=== PATIENT | female | born 1960 | race Caucasian/White ===

== ENCOUNTER → 2022-10-06 | Outpatient (CLI) | payer MEDICARE, MEDICAID, SELFPAY ==
[2022-10-06 18:00] LABS: Absolute Lymphocyte Count 2.62 X10^3/uL (0.83-4.51); Absolute Neutrophil Count 7.5 X10^3/uL (2.0-7.7); Basophil% 0.9 % (0-1); Eosinophil# 0.25 X10^3/uL; Eosinophils% 2.2 % (0-5); Hematocrit 38.8 % (37-47); Hemoglobin 11.5 g/dL (12.0-15.0); Lymphocyte # 2.62 X10^3/ul (0.83-4.51); Lymphocyte % 23.2 % (19-41); Mean Corp Hgb Conc 29.6 g/dL (32-36); Mean Corpuscular Hgb 23.7 pg (27.0-32.0); Mean Corpuscular Volume 79.8 fL (81-99); Mean Platelet Vol. 10.6 fl (6.2-12.0); Monocyte# 0.82 X10^3/uL; Monocyte% 7.3 % (0-10); NRBC Flagged by Analyzer 0 % (0-5); Neutrophil # 7.47 X10^3/uL (2.7-7.7); Neutrophil % 66.2 % (47-70); Platelet Count 513 K/mm3 (150-450); RBC Distribution Width CV 16.7 % (11.6-14.6); RBC Distribution Width SD 48.3 fl (35.1-43.9); Red Blood Count 4.86 M/mm3 (4.2-5.4); White Blood Count 11.3 K/mm3 (4.4-11.0)
[2022-10-06 18:40] LABS: Vitamin B12 > 2000 pg/mL (211-911)
[2022-10-06 18:50] LABS: ALB/GLOB Ratio 0.9 RATIO (0.9-2.4); AST(SGOT) 16 U/L (15-37); Alanine Aminotransfer ALT/SGPT 25 U/L (13-56); Albumin, Serum 3.9 g/dL (3.2-5.0); Alkaline Phosphatase 84 U/L (45-117); Anion Gap 9 (5-15); BUN 22 mg/dL (7-18); BUN/Creat Ratio 11.6 RATIO (10-20); Calcium,Total 9.4 mg/dL (8.5-10.1); Chloride 101 mmol/L (98-107); EST Glomerular Filtration Rate 28 mL/min (>60); Est Glom Filt Rate - Afr Amer 34 mL/min (>60); Globulin 4.3 g/dL (2.2-4.2); Glucose 96 mg/dL (74-106); Potassium 5.4 mmol/L (3.5-5.1); Protein, Total 8.2 g/dL (6.4-8.2); Sodium Level 135 mmol/L (136-145); Thyroid Stim Hormone (TSH) 0.42 uIU/mL (0.358-3.74)
[2022-10-12 00:07] LABS: Free Kappa Light Chains 55.8 mg/L (3.3-19.4); Free Lambda Light Chains 41.7 mg/L (5.7-26.3)
[2022-10-12 09:28] LABS: Vitamin B1, Thiamine 146.3 nmol/L (66.5-200.0)
== END | disposition home or self-care (01) ==
PROVIDERS: PCP Nurse Practitioner Family; Referring Provider Psychiatry & Neurology Neurology; Visit Provider Psychiatry & Neurology Neurology
DX: E71.314 Muscle carnitine palmitoyltransferase deficiency (principal); G62.9 Polyneuropathy, unspecified; M79.10 Myalgia, unspecified site
CPT/HCPCS: 36415; 80053; 82607; 82746; 83883; 84425; 84443; 85025

== ENCOUNTER → 2022-12-01 | Outpatient (CLI) | payer MEDICARE, MEDICAID, SELFPAY ==
[2022-12-01 13:39] LABS: Anion Gap 14 (5-15); BUN 33 mg/dL (7-18); BUN/Creat Ratio 13.1 RATIO (10-20); Calcium,Total 8.9 mg/dL (8.5-10.1); Chloride 89 mmol/L (98-107); Creatinine, Serum 2.51 mg/dL (0.55-1.02); EST Glomerular Filtration Rate 21 mL/min (>60); Est Glom Filt Rate - Afr Amer 25 mL/min (>60); Ferritin 70 ng/mL (8-252); Glucose 109 mg/dL (74-106); Iron 19 ug/dL (50-170); Potassium 3.5 mmol/L (3.5-5.1); Sodium Level 125 mmol/L (136-145)
[2022-12-02 15:08] LABS: Albumin 3.5 g/dL (2.9-4.4); Alpha-1-Globulins 0.3 g/dL (0.0-0.4); Alpha-2-Globulins 1.1 g/dL (0.4-1.0); Gamma Globulin 1.2 g/dL (0.4-1.8); Immunoglobulin A 107 mg/dL (87-352); Immunoglobulin G 1343 mg/dL (586-1602); Immunoglobulin M 42 mg/dL (26-217)
[2022-12-02 16:14] LABS: IMMUNOFIXATION RESULT,S Comment: (.)
[2022-12-04 22:28] LABS: Vitamin D 1,25-Dihydroxy 32.2 pg/mL (24.8-81.5)
== END | disposition home or self-care (01) ==
LOC: BIMLAB 09:31
PROVIDERS: PCP Internal Medicine; Referring Provider Psychiatry & Neurology Neurology; Visit Provider Psychiatry & Neurology Neurology
DX: G62.9 Polyneuropathy, unspecified (principal); Z86.2 Personal history of diseases of the blood and blood-forming organs and certain disorders involving the immune mechanism; Z86.39 Personal history of other endocrine, nutritional and metabolic disease
CPT/HCPCS: 36415; 80048; 82652; 82728; 82784; 83540; 84165; 86334

== ENCOUNTER → 2022-12-07 | Outpatient (CLI) | payer MEDICARE, MEDICAID, SELFPAY ==
[2022-12-07 12:18] LABS: Color, Urine Yellow (Yellow); Glucose, Dipstick Normal (Normal); Ketone-Dipstick Negative (Negative); Leukocyte Esterase-Dipstick Negative /ul (Negative); Nitrite-Dipstick Negative (Negative); Occult Blood-Urine Negative /ul (Negative); Protein-Dipstick 15 mg/dl (Negative); Urine Bilirubin Dipstick Negative (Negative); Urine Clarity Clear (Clear); Urine Urobilinogen Normal (Normal)
[2022-12-07 12:28] LABS: Albumin, Serum 3.3 g/dL (3.2-5.0); BUN 18 mg/dL (7-18); BUN/Creat Ratio 12.2 RATIO (10-20); Calcium,Total 9.4 mg/dL (8.5-10.1); Chloride 97 mmol/L (98-107); Creatinine, Serum 1.48 mg/dL (0.55-1.02); EST Glomerular Filtration Rate 38 mL/min (>60); Est Glom Filt Rate - Afr Amer 46 mL/min (>60); Glucose 120 mg/dL (74-106); Phosphorus 3.6 mg/dL (2.5-4.9); Potassium 4.6 mmol/L (3.5-5.1); Sodium Level 134 mmol/L (136-145)
[2022-12-07 12:30] LABS: Protein, Urine (Random) 13.8 mg/dL (<11.9); Protein:Creat Ratio 320 mg/g CRE (0-200)
[2022-12-09 18:53] LABS: Immunofixation Urine Comment: (.)
== END | disposition home or self-care (01) ==
LOC: BIMLAB 10:26
PROVIDERS: Psychiatry & Neurology Neurology; PCP Internal Medicine
DX: I12.9 Hypertensive chronic kidney disease with stage 1 through stage 4 chronic kidney disease, or unspecified chronic kidney disease (principal); G62.9 Polyneuropathy, unspecified
CPT/HCPCS: 36415; 80069; 81002; 82570; 84156; 86335

== ENCOUNTER → 2022-12-28 | Outpatient (CLI) | payer MEDICARE, MEDICAID, SELFPAY ==
--- NOTE | 2022-12-28 12:37 | MRI_ITS ---
INDICATION: Worsening neck pain; right upper extremity radiculopathy EXAMINATION: MRI - MR Spine Cervical W/O Contrast TECHNIQUE: Multiplanar and multisequence MR images of the cervical spine were performed. IV Contrast Dosage and Agent: None. COMPARISON: None. FINDINGS: VERTEBRAE: No acute fracture or pathologic marrow replacement. VERTEBRAL ALIGNMENT: Normal, including the craniocervical junction and cervicothoracic junction. No spondylolisthesis. There is preservation of the normal cervical lordosis. CERVICAL SPINAL CORD: Unremarkable in signal and morphology. C2/C3: Normal disc height and morphology. Normal spinal canal and neuroforamina. C3/C4: Normal disc height and morphology. Bilateral facet joint hypertrophy and spondylitic changes produce mild bilateral foraminal stenosis. C4/C5: Loss of normal disc space height. Broad-based spondylitic bar formation produces moderately severe right foraminal narrowing and moderate left foraminal narrowing. No significant central stenosis. C5/C6: Loss of normal disc space height. Disc-osteophyte formation produces mild central and moderate bilateral foraminal stenosis. C6/C7: Mild loss of normal disc space height. Disc-osteophyte formation present. Mild central and moderate left foraminal stenosis. C7/T1: Normal disc height and morphology. Normal spinal canal and neuroforamina. NECK SOFT TISSUES: No prevertebral soft tissue swelling. There is no cervical adenopathy. MRI/Spine Cervical (Routine) IMPRESSION: Degenerative disc disease and cervical spondylosis with multilevel central and foraminal stenoses as above. Findings most severe at the C5-6 level. Electronically Signed: Rolando Ross MD at 21:57 EST ,
--- NOTE | 2022-12-28 13:37 | ART_ITS ---
Reason For Study: Absent left foot pulses Procedure A bilateral lower extremity continuous wave Doppler with analog waveform analysis and ankle brachial indexes. Left Segmental Pressures Left brachial= 150mmHg. Left posterior tibial artery = 153mmHg. Left dorsalis pedis artery = 145mmHg. Left digit = 91 mmHg. The left dorsalis pedis waveforms are triphasic. The left posterior tibial artery waveforms are triphasic. Right Segmental Pressures Right brachial= 155mmHg. Right posterior tibial artery = 168mmHg. Right dorsalis pedis artery = 143mmHg. Right digit = 101 mmHg. The right dorsalis pedis waveforms are triphasic. The right posterior tibial artery waveforms are triphasic. Indices The right ankle brachial index by the dorsalis pedis is 0.92. The right ankle brachial index by the posterior tibial artery is 1.08. The right digital-brachial index is 0.65. The left ankle brachial index by the dorsalis pedis is 0.94. The left ankle brachial index by the posterior tibial artery is 0.99. The left digital-brachial index is 0.59. VL/Ankle Brachial Index Interpretation Summary The right ankle-brachial indices are essentially normal with the dorsalis pedis index of 0.92 and a posterior tibialis index of 1.08 with triphasic Doppler waveforms at each site The right digital brachial index is abnormal at 0.65 possibly suggesting small vessel disease The left lower extremity dorsalis pedis and ankle-brachial indices are borderli ne abnormal at 0.94 and 0.99 respectively with triphasic Doppler waveforms at each site consistent with mild disease. The left digital brachial index is abnormal at 0.59. Ordering Physician: Rusty Dozier Referring Physician: Jennifer Gordon Performed By: Tali Oakes RVT
== END | disposition home or self-care (01) ==
LOC: MRI 12:37
PROVIDERS: PCP Internal Medicine; Referring Provider Psychiatry & Neurology Neurology; Visit Provider Psychiatry & Neurology Neurology
DX: I73.9 Peripheral vascular disease, unspecified (principal); M54.12 Radiculopathy, cervical region
CPT/HCPCS: 72141; 93922

== ENCOUNTER → 2023-02-07 | Outpatient (CLI) | payer MEDICARE, MEDICAID, SELFPAY ==
[2023-02-07 18:36] LABS: Anion Gap 5 (5-15); BUN 25 mg/dL (7-18); Calcium,Total 9.5 mg/dL (8.5-10.1); Chloride 103 mmol/L (98-107); Creatinine, Serum 1.78 mg/dL (0.55-1.02); EST Glomerular Filtration Rate 30 mL/min (>60); Est Glom Filt Rate - Afr Amer 37 mL/min (>60); Glucose 107 mg/dL (74-106); Potassium 5.1 mmol/L (3.5-5.1); Sodium Level 134 mmol/L (136-145)
[2023-02-10 14:09] LABS: Albumin 3.7 g/dL (2.9-4.4); Alpha-1-Globulins 0.3 g/dL (0.0-0.4); Alpha-2-Globulins 1.1 g/dL (0.4-1.0); Free Kappa Light Chains 62.9 mg/L (3.3-19.4); Free Lambda Light Chains 46.9 mg/L (5.7-26.3); Gamma Globulin 1.6 g/dL (0.4-1.8); Immunoglobulin A 119 mg/dL (87-352); Immunoglobulin G 1604 mg/dL (586-1602); Immunoglobulin M 58 mg/dL (26-217); PROEL- TOTAL PROTEIN 7.9 g/dL (6.0-8.5)
[2023-02-12 11:08] LABS: Vitamin D 1,25-Dihydroxy 17.1 pg/mL (24.8-81.5)
== END | disposition home or self-care (01) ==
LOC: MTLAB 15:44
PROVIDERS: PCP Internal Medicine; Referring Provider Psychiatry & Neurology Neurology; Visit Provider Psychiatry & Neurology Neurology
DX: G62.9 Polyneuropathy, unspecified (principal); Z86.39 Personal history of other endocrine, nutritional and metabolic disease
CPT/HCPCS: 36415; 80048; 82652; 82784; 83883; 84165; 86334; 86335

== ENCOUNTER → 2023-05-01 | Outpatient (CLI) | payer MEDICARE, MEDICAID, SELFPAY ==
--- NOTE | 2023-05-01 14:41 | ECHOD_ITS ---
Reason For Study: CHEST PAIN Procedure This was a 2D Doppler, Color Flow transthoracic echocardiogram. Exam performed in department. Left Ventricle Normal size and thickness. The left ventricular ejection fraction is 65 %. Normal diastology for age. Right Ventricle Normal right ventricle. Atria The left atrium is mildly enlarged. Normal right atrium. Mitral Valve Trivial mitral valve insufficiency. Tricuspid Valve Trivial tricuspid valve insufficiency. Unable to estimate RV systolic pressure due to insufficient tricuspid regurgitant envelope. Aortic Valve Normal aortic valve. Pulmonic Valve The pulmonic valve is not well visualized. Great Vessels Normal sized aortic root. Pericardium/Pleural No pericardial effusion. Epicardial fat. MMode/2D Measurements & Calculations LVIDd: 5.5 cm IVSd: 1.1 cm LAV(MOD-bp): 49.7 ml LVIDs: 3.8 cm LVPWd: 1.1 cm LAV(MOD-bp) Indexed: 24.4 ml/m2 FS: 31.6 % LAV(MOD-sp2): 64.2 ml LAV(MOD-sp4): 34.1 ml SV(MOD-sp4): 53.8 ml SV(sp4-el): 59.4 ml LVAd ap4: 31.6 cm2 LVLd ap4: 8.1 cm EDV(MOD-sp4): 100.8 ml EDV(sp4-el): 105.0 ml LVAs ap4: 19.1 cm2 LVLs ap4: 6.8 cm ESV(MOD-sp4): 47.1 ml ESV(sp4-el): 45.5 ml EF(MOD-sp4): 53.3 % EF(sp4-el): 56.6 % LA A4 area: 15.5 cm2 LA dimension(2D): 4.2 cm RA A4 area: 16.6 cm2 TAPSE: 2.1 cm Time Measurements MV dec time: 0.22 sec Doppler Measurements & Calculations MV E max dread: 79.7 cm/sec Lat Peak E' Dread: 10.1 cm/sec Med Peak E' Dread: 8.9 cm/sec MV A max dread: 73.5 cm/sec E/E' lat: 7.9 E/E' med: 8.9 MV E/A: 1.1 MV V2 max: 92.0 cm/sec Ao V2 max: 123.3 cm/sec MV max P.4 mmHg MV dec slope: 379.3 cm/sec2 Ao max P.1 mmHg MV V2 mean: 61.7 cm/sec Ao V2 mean: 88.3 cm/sec MV mean P.7 mmHg Ao mean P.5 mmHg MV V2 VTI: 27.9 cm Ao V2 VTI: 29.0 cm AV (velocity ratio): 0.81 LV V1 max: 106.9 cm/sec PA V2 max: 79.3 cm/sec LV V1 max P.6 mmHg PA V2 mean: 56.4 cm/sec LV V1 mean P.5 mmHg LV V1 mean: 73.9 cm/sec LV V1 VTI: 23.4 cm ECHO/Echo Complete Interpretation Summary The left ventricular ejection fraction is 65 %. The left atrium is mildly enlarged. Ordering Physician: Flavia Shine Referring Physician: Flavia Shine Performed By: Shereen Messer RCS
== END | disposition home or self-care (01) ==
LOC: CVS 14:40
PROVIDERS: PCP Internal Medicine; Referring Provider Internal Medicine Cardiovascular Disease; Visit Provider Internal Medicine Cardiovascular Disease
DX: R07.9 Chest pain, unspecified (principal)
CPT/HCPCS: 93306

== ENCOUNTER → 2023-06-01 | Outpatient (CLI) | payer MEDICARE, MEDICAID, SELFPAY ==
--- NOTE | 2023-06-05 16:09 | STRESSREP ---
Stress Test Report Pharmacologic myocardial perfusion stress test. 63-year-old lady with a history of nonsustained ventricular tachycardia Resting EKG demonstrates sinus rhythm with a rate of 65 bpm. Resting blood pressure is 118/78 mmHg. 0.4 mg of regadenoson was infused per usual protocol followed by rapid intravenous saline flush injection. Continuous EKG monitoring was performed. The maximum heart rate was 76 bpm which was 49% of max impacted heart rate the maximum workload was 1 metabolic equivalent. At rest there were no ST or T wave changes noted to suggest ischemia and at peak infusion nonspecific ST changes were noted which did not meet the criteria for ischemia. No clinical angina is noted. The final blood pressure was 118/74 mmHg. Myocardial perfusion protocol. 14.4 mCi of technetium 99m sestamibi was injected at rest. 0.4 mg of regadenoson was infused per usual protocol. At peak infusion 44.1 mCi of technetium 99m sestamibi was injected stress images were obtained stress and rest images were reconstructed and compared in the short axis vertical long and horizontal long axis. Gated images were also obtained. Perfusion SPECT analysis: Review of the stress images demonstrate normal uptake of tracer noted in all areas of the myocardium. The resting images similar demonstrated normal uptake of tracer noted in all areas of the myocardium. No areas of reversibility are noted to suggest ischemia and no previous infarct is noted. Gated SPECT analysis: The gated ejection fraction is 64%. Conclusion: Normal pharmacologic myocardial perfusion stress test. [Preserved] ejection fraction.
== END | disposition home or self-care (01) ==
LOC: CVS 06:46
PROVIDERS: PCP Internal Medicine; Referring Provider Physician Assistant Medical; Visit Provider Physician Assistant Medical
DX: I25.10 Atherosclerotic heart disease of native coronary artery without angina pectoris (principal)
CPT/HCPCS: 78452; 93017; A9500; A4216; J2785

== ENCOUNTER → 2023-06-05 | Outpatient (CLI) | payer MEDICARE, MEDICAID, SELFPAY ==
[2023-06-05 12:29] LABS: Absolute Lymphocyte Count 2.66 X10^3/uL (0.83-4.51); Absolute Neutrophil Count 6.1 X10^3/uL (2.0-7.7); Basophil# 0.08 X10^3/uL; Basophil% 0.8 % (0-1); Eosinophil# 0.34 X10^3/uL; Eosinophils% 3.4 % (0-5); Hematocrit 39.7 % (37-47); Hemoglobin 11.5 g/dL (12.0-15.0); Lymphocyte # 2.66 X10^3/ul (0.83-4.51); Lymphocyte % 26.7 % (19-41); Mean Corpuscular Hgb 24.3 pg (27.0-32.0); Mean Corpuscular Volume 83.8 fL (81-99); Mean Platelet Vol. 10.5 fl (6.2-12.0); Monocyte# 0.79 X10^3/uL; Monocyte% 7.9 % (0-10); NRBC Flagged by Analyzer 0 % (0-5); Neutrophil # 6.05 X10^3/uL (2.7-7.7); Neutrophil % 60.7 % (47-70); Platelet Count 370 K/mm3 (150-450); RBC Distribution Width CV 16.6 % (11.6-14.6); RBC Distribution Width SD 50.5 fl (35.1-43.9); Red Blood Count 4.74 M/mm3 (4.2-5.4)
[2023-06-05 13:45] LABS: ALB/GLOB Ratio 0.8 RATIO (0.9-2.4); AST(SGOT) 17 U/L (15-37); Alanine Aminotransfer ALT/SGPT 18 U/L (13-56); Albumin, Serum 3.5 g/dL (3.2-5.0); Alkaline Phosphatase 105 U/L (45-117); Anion Gap 6 (5-15); BUN 22 mg/dL (7-18); BUN/Creat Ratio 12.2 RATIO (10-20); Calcium,Total 9.1 mg/dL (8.5-10.1); Chloride 104 mmol/L (98-107); Cholesterol 220 mg/dL (200); EST Glomerular Filtration Rate 30 mL/min (>60); Est Glom Filt Rate - Afr Amer 36 mL/min (>60); Globulin 4.6 g/dL (2.2-4.2); Glucose 107 mg/dL (74-106); High Density Lipoprotein 40 mg/dL; Lipase 69 U/L (13-75); Potassium 5.4 mmol/L (3.5-5.1); Protein, Total 8.1 g/dL (6.4-8.2); Sodium Level 136 mmol/L (136-145); Thyroid Stim Hormone (TSH) 0.12 uIU/mL (0.358-3.74); Triglycerides 240 mg/dL; Very Low Density Lipoprotein 48 mg/dL (5-40)
[2023-06-06 15:08] LABS: Endomysial Antibody IgA Negative (Negative); Immunoglobulin A 135 mg/dL (87-352); t-Transglutaminase IgA <2 U/mL (0-3)
== END | disposition home or self-care (01) ==
LOC: BIMLAB 11:06
PROVIDERS: PCP Internal Medicine; Referring Provider Internal Medicine; Visit Provider Internal Medicine
DX: I12.9 Hypertensive chronic kidney disease with stage 1 through stage 4 chronic kidney disease, or unspecified chronic kidney disease (principal); N18.4 Chronic kidney disease, stage 4 (severe); R10.9 Unspecified abdominal pain; G89.29 Other chronic pain; E03.9 Hypothyroidism, unspecified
CPT/HCPCS: 36415; 80053; 80061; 82306; 82784; 83516; 83690; 84443; 85025; 86255

== ENCOUNTER → 2023-07-03 | Outpatient (CLI) | payer MEDICARE, MEDICAID, SELFPAY ==
--- NOTE | 2023-07-03 12:55 | CT_ITS ---
EXAM: CT CHEST, LUNG CANCER SCREENING WITHOUT INTRAVENOUS CONTRAST CLINICAL INDICATION: smoking TECHNIQUE: Helically acquired images were obtained of the chest without intravenous contrast using low dose (LDCT) lung cancer screening protocol. This CT exam was performed using one or more of the following dose reduction techniques: automated exposure control, adjustment of the mA and/or kV according to patient size, and/or use of iterative reconstruction technique. COMPARISON: No relevant prior studies available. FINDINGS: LUNGS AND PLEURAL SPACES: There are multiple small subcentimeter calcified nodules in the right upper lobe. There is scarring or atelectasis in the lingula. No pleural effusion or thickening. No pneumothorax. HEART: Unremarkable. Heart size is normal. No pericardial effusion. No significant coronary artery calcifications. MEDIASTINUM: Unremarkable. No mediastinal or hilar adenopathy. Esophagus is unremarkable. No hiatal hernia. THYROID: Unremarkable. No thyroid lesions. BONES/JOINTS: Unremarkable. No suspicious lytic or blastic abnormality. VASCULATURE: Unremarkable. Thoracic aorta is non-dilated. LYMPH NODES: Unremarkable. No enlarged lymph nodes. CT/Low Dose CT Lung Screening IMPRESSION: Minimal scar or atelectasis in the lingula. No other acute pulmonary abnormalities are identified. There are multiple calcified nodules in the right upper lobe. Lung-RADS score: 1 - Recommend continued annual screening with a low-dose CT (LDCT) in 12 months. Electronically Signed: Travis Carnes MD at 22:00 EDT ,
--- NOTE | 2023-07-03 13:13 | BI_ITS ---
MAMMOGRAPHY - BILATERAL SCREENING REASON FOR EXAM: Female, 63 years old. Routine annual screening examination. PERTINENT HISTORY: Non-contributory. TECHNIQUE: Digital bilateral breast wendy (3D mammographic acquisition) in the CC and MLO projections. 2-D mediolateral oblique (MLO) and craniocaudad (CC) views of both breasts were obtained. CAD: Full Field Digital Mammography with Computer Added Detection was performed. COMPARISON: Comparison is made with prior outside examination of August 16, 2021. FINDINGS: Breast Composition: The breasts are heterogeneously dense, which may obscure small masses. There are no dominant masses or suspicious calcifications. Stable asymmetric breast tissue with more breast tissue is seen in the upper outer quadrant of the right breast, is compared to the left side. No other significant abnormalities are identified. There has been no significant change since the prior study. BI/SCRN MAMM (CAD)W/WENDY BILAT IMPRESSION: Stable bilateral screening mammogram. Yearly follow-up mammogram recommended. (A) ASSESSMENT CATEGORY: BIRADS Category 2: Benign. A letter regarding these results will be sent to the patient by the facility within 30 days. Approximately 10% of breast cancers are not detected by mammography. A normal mammogram should not delay biopsy of a clinically suspicious abnormality. [id number] Electronically Signed: Clarence Tamez MD at 15:36 EDT ,
[2023-07-07 20:07] LABS: Pancreatic Elastase, Fecal 409 (>200)
== END | disposition home or self-care (01) ==
LOC: CT 12:48
PROVIDERS: PCP Internal Medicine; Referring Provider Nurse Practitioner Acute Care; Visit Provider Nurse Practitioner Acute Care
DX: Z12.31 Encounter for screening mammogram for malignant neoplasm of breast (principal); F17.210 Nicotine dependence, cigarettes, uncomplicated
CPT/HCPCS: 71271; 77063; 77067; 82653

== ENCOUNTER → 2023-11-28 | Outpatient (CLI) | payer MEDICARE, MEDICAID, SELFPAY ==
[2023-12-01 14:10] LABS: Albumin 3.8 g/dL (2.9-4.4); Alpha-1-Globulins 0.2 g/dL (0.0-0.4); Free Kappa Light Chains 52.2 mg/L (3.3-19.4); Free Lambda Light Chains 41.5 mg/L (5.7-26.3); Gamma Globulin 1.3 g/dL (0.4-1.8); Immunoglobulin A 147 mg/dL (87-352); Immunoglobulin G 1444 mg/dL (586-1602); Immunoglobulin M 58 mg/dL (26-217); PROEL- TOTAL PROTEIN 7.4 g/dL (6.0-8.5)
== END | disposition home or self-care (01) ==
LOC: MTLAB 15:48
PROVIDERS: PCP Internal Medicine; Referring Provider Psychiatry & Neurology Neurology; Visit Provider Psychiatry & Neurology Neurology
DX: G62.9 Polyneuropathy, unspecified (principal)
CPT/HCPCS: 36415; 82784; 83883; 84165; 86334; 86335

== ENCOUNTER → 2023-12-29 | Outpatient (CLI) | payer MEDICARE, MEDICAID, SELFPAY ==
[2023-12-29 15:31] LABS: Absolute Neutrophil Count 7.7 X10^3/uL (2.0-7.7); Basophil# 0.09 X10^3/uL; Basophil% 0.8 % (0-1); Eosinophil# 0.23 X10^3/uL; Eosinophils% 2.2 % (0-5); Hematocrit 39.3 % (37-47); Hemoglobin 11.7 g/dL (12.0-15.0); Lymphocyte % 17.8 % (19-41); Mean Corp Hgb Conc 29.8 g/dL (32-36); Mean Corpuscular Hgb 25.5 pg (27.0-32.0); Mean Corpuscular Volume 85.8 fL (81-99); Mean Platelet Vol. 10.2 fl (6.2-12.0); Monocyte# 0.74 X10^3/uL; Monocyte% 6.9 % (0-10); NRBC Flagged by Analyzer 0 % (0-5); Neutrophil # 7.68 X10^3/uL (2.7-7.7); Neutrophil % 71.8 % (47-70); Platelet Count 350 K/mm3 (150-450); RBC Distribution Width CV 15.9 % (11.6-14.6); RBC Distribution Width SD 50.2 fl (35.1-43.9); Red Blood Count 4.58 M/mm3 (4.2-5.4); White Blood Count 10.7 K/mm3 (4.4-11.0)
[2023-12-29 15:41] LABS: Color, Urine Yellow (Yellow); Glucose, Dipstick Normal (Normal); Ketone-Dipstick Negative (Negative); Leukocyte Esterase-Dipstick 100 /ul (Negative); Nitrite-Dipstick Negative (Negative); Occult Blood-Urine Negative /ul (Negative); Protein-Dipstick 100 mg/dl (Negative); Specific Gravity, Urine 1.015 (1.002-1.030); Urine Bilirubin Dipstick Negative (Negative); Urine Clarity Clear (Clear); Urine Urobilinogen Normal (Normal)
[2023-12-29 16:05] LABS: PTHIN 96.2 pg/mL (18.4-80.1)
[2023-12-29 16:06] LABS: Protein:Creat Ratio 629 mg/g CRE (0-200)
[2023-12-29 16:19] LABS: T3 Total - Triiodothyronine 1.06 ng/mL (0.6-1.81)
[2023-12-29 17:08] LABS: ALB/GLOB Ratio 0.8 RATIO (0.9-2.4); AST(SGOT) 20 U/L (15-37); Alanine Aminotransfer ALT/SGPT 21 U/L (13-56); Albumin, Serum 3.4 g/dL (3.2-5.0); Alkaline Phosphatase 89 U/L (45-117); Anion Gap 5 (5-15); BUN 26 mg/dL (7-18); BUN/Creat Ratio 13.5 RATIO (10-20); Calcium,Total 8.9 mg/dL (8.5-10.1); Chloride 106 mmol/L (98-107); Cholesterol 210 mg/dL (200); Creatinine, Serum 1.93 mg/dL (0.55-1.02); EST Glomerular Filtration Rate 28 mL/min (>60); Est Glom Filt Rate - Afr Amer 33 mL/min (>60); Globulin 4.3 g/dL (2.2-4.2); Glucose 141 mg/dL (74-106); High Density Lipoprotein 36 mg/dL; Magnesium 2.3 mg/dL (1.6-2.6); Potassium 4.6 mmol/L (3.5-5.1); Protein, Total 7.7 g/dL (6.4-8.2); Sodium Level 137 mmol/L (136-145); Triglycerides 265 mg/dL; Very Low Density Lipoprotein 53 mg/dL (5-40)
[2023-12-29 17:18] LABS: Vitamin D,25 Hydroxy 65.9 ng/mL
== END | disposition home or self-care (01) ==
PROVIDERS: PCP Internal Medicine; Referring Provider Internal Medicine Nephrology; Visit Provider Internal Medicine Nephrology
DX: I12.9 Hypertensive chronic kidney disease with stage 1 through stage 4 chronic kidney disease, or unspecified chronic kidney disease (principal); F32.1 Major depressive disorder, single episode, moderate; N18.4 Chronic kidney disease, stage 4 (severe); I47.29 Other ventricular tachycardia; E89.0 Postprocedural hypothyroidism; R10.9 Unspecified abdominal pain; G89.29 Other chronic pain; I25.10 Atherosclerotic heart disease of native coronary artery without angina pectoris; R00.2 Palpitations; E78.2 Mixed hyperlipidemia
CPT/HCPCS: 36415; 80048; 80053; 80061; 80069; 81002; 82306; 82570; 83735; 83970; 84156; 84439; 84443; 84480; 85025

== ENCOUNTER → 2024-01-03 | Outpatient (CLI) | payer MEDICARE, MEDICAID, SELFPAY ==
--- NOTE | 2024-01-03 15:48 | CT_ITS ---
EXAM: CT ABDOMEN AND PELVIS WITHOUT INTRAVENOUS CONTRAST CLINICAL INDICATION: HYDRONEPHROSIS TECHNIQUE: Helically acquired images were obtained of the abdomen and pelvis without intravenous contrast. This CT exam was performed using one or more of the following dose reduction techniques: automated exposure control, adjustment of the mA and/or kV according to patient size, and/or use of iterative reconstruction technique. COMPARISON: No relevant prior studies available. FINDINGS: LOWER THORAX: Unremarkable. Lung bases are clear. No cardiomegaly. No significant pericardial effusion. ABDOMEN: LIVER: Unremarkable. Homogeneous. GALLBLADDER AND BILE DUCTS: There are surgical clips from a cholecystectomy. No intra- or extrahepatic biliary ductal dilation. PANCREAS: Unremarkable. No focal cystic mass. SPLEEN: Unremarkable. Normal size without focal cystic or solid mass. ADRENALS: Unremarkable. No nodules. KIDNEYS AND URETERS: Unremarkable. Normal renal size and position. No hydronephrosis. STOMACH AND BOWEL: Unremarkable. No stomach or bowel distention. No focal inflammatory change. PELVIS: APPENDIX: No evidence of acute appendicitis. BLADDER: Unremarkable. REPRODUCTIVE: The patient is status post hysterectomy. ABDOMEN and PELVIS: INTRAPERITONEAL SPACE: Unremarkable. No ascites or other fluid collection. No free air. BONES/JOINTS: Unremarkable. No suspicious lytic or blastic abnormality. SOFT TISSUES: Unremarkable. No discrete abdominal or pelvic wall hernia. VASCULATURE: Unremarkable. Abdominal aorta is non-dilated. LYMPH NODES: Unremarkable. No enlarged lymph nodes. CT/Abdomen/Pelvis without Cont IMPRESSION: No acute findings in the abdomen or pelvis. Electronically Signed: Travis Carnes MD at 0:02 EST ,
== END | disposition home or self-care (01) ==
LOC: CT 15:47
PROVIDERS: PCP Internal Medicine; Referring Provider Internal Medicine Nephrology; Visit Provider Internal Medicine Nephrology
DX: N13.30 Unspecified hydronephrosis (principal)
CPT/HCPCS: 74176

== ENCOUNTER → 2024-02-21 | Outpatient (CLI) | payer MEDICARE, MEDICAID, SELFPAY | END | disposition home or self-care (01) | LOC: PSN 12:36 | PROVIDERS: PCP Internal Medicine; Referring Provider Internal Medicine Critical Care Medicine; Visit Provider Internal Medicine Critical Care Medicine | DX: J44.9 Chronic obstructive pulmonary disease, unspecified (principal); J96.11 Chronic respiratory failure with hypoxia | CPT/HCPCS: 94060; 94726; 94729 ==

== ENCOUNTER → 2024-02-29 | Outpatient (CLI) | payer MEDICARE, MEDICAID, SELFPAY ==
[2024-02-29 17:27] LABS: Hemoglobin A1c 5.9 % (3.8-5.6)
[2024-02-29 18:19] LABS: ALB/GLOB Ratio 0.8 RATIO (0.9-2.4); AST(SGOT) 45 U/L (15-37); Alanine Aminotransfer ALT/SGPT 29 U/L (13-56); Albumin, Serum 3.5 g/dL (3.2-5.0); Alkaline Phosphatase 85 U/L (45-117); Anion Gap 8 (5-15); BUN 20 mg/dL (7-18); BUN/Creat Ratio 10.6 RATIO (10-20); Calcium,Total 9.3 mg/dL (8.5-10.1); Chloride 104 mmol/L (98-107); Creatinine, Serum 1.89 mg/dL (0.55-1.02); EST Glomerular Filtration Rate 28 mL/min (>60); Est Glom Filt Rate - Afr Amer 34 mL/min (>60); Globulin 4.4 g/dL (2.2-4.2); Glucose 137 mg/dL (74-106); Potassium 4.7 mmol/L (3.5-5.1); Protein, Total 7.9 g/dL (6.4-8.2); Sodium Level 138 mmol/L (136-145); Thyroid Stim Hormone (TSH) 1.67 uIU/mL (0.358-3.74)
== END | disposition home or self-care (01) ==
LOC: BIMLAB 14:37
PROVIDERS: PCP Internal Medicine; Referring Provider Internal Medicine; Visit Provider Internal Medicine
DX: E89.0 Postprocedural hypothyroidism (principal); R60.0 Localized edema; R73.09 Other abnormal glucose
CPT/HCPCS: 36415; 80053; 83036; 84443

== ENCOUNTER 2024-03-11 14:12 | Outpatient (RCR) | payer MEDICARE, MEDICAID, SELFPAY | END 2024-04-05 23:59 | LOC: NS 14:12 | PROVIDERS: PCP Internal Medicine; Referring Provider Internal Medicine; Visit Provider Internal Medicine | DX: Z71.3 Dietary counseling and surveillance (principal); E66.9 Obesity, unspecified; N18.4 Chronic kidney disease, stage 4 (severe); Z68.41 Body mass index [BMI] 40.0-44.9, adult | CPT/HCPCS: 97802 ==

== ENCOUNTER → 2024-04-09 | Outpatient (CLI) | payer MEDICARE, MEDICAID, SELFPAY ==
[2024-04-09 18:01] LABS: Hematocrit 40.8 % (37-47); Hemoglobin 12.2 g/dL (12.0-15.0); Mean Corp Hgb Conc 29.9 g/dL (32-36); Mean Corpuscular Hgb 25.7 pg (27.0-32.0); Mean Corpuscular Volume 86.1 fL (81-99); Mean Platelet Vol. 10.8 fl (6.2-12.0); Platelet Count 337 K/mm3 (150-450); RBC Distribution Width CV 14.9 % (11.6-14.6); Red Blood Count 4.74 M/mm3 (4.2-5.4); White Blood Count 9.4 K/mm3 (4.4-11.0)
[2024-04-09 18:24] LABS: PTHIN 140.3 pg/mL (18.4-80.1)
[2024-04-09 18:55] LABS: Albumin, Serum 3.6 g/dL (3.2-5.0); BUN 39 mg/dL (7-18); Calcium,Total 9.1 mg/dL (8.5-10.1); Chloride 106 mmol/L (98-107); Creatinine, Serum 1.77 mg/dL (0.55-1.02); EST Glomerular Filtration Rate 31 mL/min (>60); Est Glom Filt Rate - Afr Amer 37 mL/min (>60); Glucose 140 mg/dL (74-106); Phosphorus 3.9 mg/dL (2.5-4.9); Potassium 4.8 mmol/L (3.5-5.1); Sodium Level 136 mmol/L (136-145)
[2024-04-09 18:59] LABS: Protein, Urine (Random) 84.1 mg/dL (<11.9); Protein:Creat Ratio 1124 mg/g CRE (0-200)
== END | disposition home or self-care (01) ==
PROVIDERS: PCP Internal Medicine; Referring Provider Internal Medicine Nephrology; Visit Provider Internal Medicine Nephrology
DX: N18.4 Chronic kidney disease, stage 4 (severe) (principal)
CPT/HCPCS: 36415; 80069; 82306; 82570; 83970; 84156; 85027

== ENCOUNTER 2024-04-22 16:26 | Observation (INO) | payer MEDICARE, MEDICAID, SELFPAY ==
[2024-04-22] VITALS (7 sets, daily range): BP systolic 126–134; BP diastolic 66–117; PULSE 67–82; RESP 18–20; TEMP 35.7–36.8; O2SAT 94–100; BMI 43.9
--- NOTE | 2024-04-22 17:13 | EKG12_ITS ---
Test Reason : CP Blood Pressure : / mmHG Vent. Rate : 061 BPM Atrial Rate : 061 BPM P-R Int : 170 ms QRS Dur : 090 ms QT Int : 398 ms P-R-T Axes : 074 040 058 degrees QTc Int : 400 ms Normal sinus rhythm Normal ECG Confirmed by JANET HUNTER, DOROTHY ([id number]), material expeditor JACIEL POWERS ([id number]) on 04/23/2024 11:27:26 AM Referred By: NENA/JACKI Confirmed By:DOROTHY GONZALES MD
--- NOTE | 2024-04-22 17:18 | EDS_ITS ---
HPI <DANIEL Arias - Last Filed: 04/22/24 20:34> History of Present Illness Chief Complaint: Chest Pain Narrative Narrative: Patient presenting today due to midsternal chest pressure that she has had intermittently over the past 3 days. Nothing seems to make her symptoms better or worse. She follows with Dr. Shine, she just had her metoprolol increased a few days ago to 100 mg twice daily due to history of ventricular tachycardia. She is scheduled to see an treater soon. She reports that since her metoprolol was increased her heart rate has been in the 50s which concerns her. She has a PMH of CKD, COPD, hypertension, CAD, FELISA, PAD, CPT 2. PE Risk Factors: Negative for Recent Travel/Surgery, Recent Immobilization, Prior DVT or PE or Cancer PFSH <DANIEL Arias - Last Filed: 04/22/24 20:34> [facility] Medical History (Updated 04/22/24 @ 20:34 by DANIEL Arias) Anxiety Depression Osteoporosis Smoker On home oxygen therapy COPD (chronic obstructive pulmonary disease) Hypertension Hx of ventricular tachycardia COPD (chronic obstructive pulmonary disease) Chronic hypoxemic respiratory failure Polyclonal gammopathy Bence Davila protein present in urine Obesity Nonsustained ventricular tachycardia Coronary artery disease Syncope Palpitations Thyroid cancer Syncope and collapse Essential hypertension Fatigue Cervical radiculopathy Smoking greater than 30 pack years Hypoxia Chronic diarrhea Recurrent falls Fatty liver FELISA (obstructive sleep apnea) CKD (chronic kidney disease) stage 4, GFR 15-29 ml/min Acquired hypothyroidism History of vitamin D deficiency Peripheral arterial disease Low back pain Vertigo Polyneuropathy Insomnia Myalgia Neck pain Carnitine palmitoyltransferase II deficiency Vision problems Thyroid cancer GERD (gastroesophageal reflux disease) Osteoarthritis Hypothyroid Neuropathy Kidney disease Hypertension History of emotional problems Chronic bronchitis Home Medications ?Medication ?Instructions ?Recorded ?Last Taken ?Type Disability Placard #1 ea 02/07/23 Unknown Rx aspirin 81 mg tablet,delayed 81 mg PO DAILY 04/18/23 Unknown History release (Adult Low Dose Aspirin) cholecalciferol (vitamin D3) 50 50 mcg PO DAILY 04/18/23 Unknown History mcg (2,000 unit) capsule ferrous sulfate 325 mg (65 mg 325 mg PO DAILY 04/18/23 Unknown History iron) tablet levocarnitine 330 mg tablet 330 mg PO TID 04/18/23 Unknown History doxepin 100 mg capsule 100 mg PO QHS #30 caps 11/28/23 Unknown Rx tizanidine 4 mg tablet See Rx Instructions .Route 11/28/23 Unknown Rx .COMPLEX #120 tabs duloxetine 60 mg capsule,delayed 60 mg PO DAILY #90 caps 12/11/23 Unknown Rx release hyoscyamine sulfate 0.125 mg tablet mg PO 12/11/23 Unknown History fluticasone fur. 200 mcg-umeclid 1 inh inhalation DAILY #3 ea 02/12/24 Unknown Rx 62.5 mcg-vilant 25 mcg inhalat.powder (Trelegy Ellipta) compr.stocking,thigh,short,lrg #24 ea 02/29/24 Unknown Rx omeprazole 40 mg capsule,delayed 40 mg PO DAILY #90 caps 03/04/24 Unknown Rx release lovastatin 10 mg tablet 10 mg PO QPM #90 tabs 03/06/24 Unknown Rx nifedipine 30 mg tablet,extended 30 mg PO DAILY #90 tabs 03/06/24 Unknown Rx release lisinopril 10 mg tablet 10 mg PO DAILY #90 tabs 04/16/24 Unknown Rx metoprolol tartrate 100 mg tablet 100 mg PO BID #90 tabs 04/16/24 Unknown Rx levothyroxine 175 mcg tablet 175 mcg PO .bedtime 04/22/24 Unknown History Allergy/AdvReac Type Severity Reaction Status Date / Time Penicillins Allergy Unknown Unknown Verified 04/22/24 16:29 Family History Mother CVA (cerebral vascular accident) Heart disease Arthritis Lupus Father Myocardial infarction Hypertension Brother Colon cancer Brother Colon cancer Brother Cancer stomach Sister Seizures Grandfather Myocardial infarction Grandmother Myocardial infarction Surgical History (Updated 04/22/24 @ 19:53 by Irma Giron) History of cholecystectomy Cataract extraction status History of surgical procedure H/O thyroidectomy S/P cholecystectomy History of surgical procedure H/O wrist surgery History of repair of rotator cuff History of hysterectomy Hx of total knee replacement Social History household members: none housing: apartment current occupational status: unemployed Smoking Status: Former smoker quit date: 07/10/13 pack-years: 20 Tobacco: How many years used: 20 Electronic Cigarette Use: not used second hand exposure: No alcohol intake: never substance use type: marijuana and other details: THC gummy caffeine: Yes Type: coffee Number of servings: 2 what type of physical activity do you participate in: none seatbelt use: always do you feel safe at home: Yes ROS <DANIEL Arias - Last Filed: 04/22/24 20:34> ROS ED Constitutional Constitutional ED: Denies chills or fever(s) Cardiovascular Cardiovascular: Reports chest pain; Denies palpitations Respiratory/Chest Respiratory/Chest: Denies cough or dyspnea Gastrointestinal Gastrointestinal: Denies abdominal pain, nausea or vomiting Musculoskeletal Musculoskeletal: Denies arthralgias or myalgias Integumentary Denies rash Neurologic Neurologic: Denies weakness EXAM <DANIEL Arias - Last Filed: 04/22/24 20:34> Physical Exam Const Vital Signs: 04/22/24 16:29 04/22/24 18:24 04/22/24 18:51 Temperature 96.3 F L 98 F Temperature Source Temporal Pulse Rate 67 82 82 Respiratory Rate 18 18 18 Blood Pressure 126/66 H 127/68 H 126/66 H Blood Pressure Mean 86 87 86 Pulse Ox 94 97 98 Oxygen Delivery Method Room Air Room Air Positive well nourished, well developed and no apparent distress General Appearance ED: well developed HEENT Reports normocephalic and head/scalp atraumatic Mouth ED: Yes moist mucous membranes normal Eyes PERRL and EOMs intact bilaterally Neck full ROM and supple Chest Wall inspection of chest normal Resp normal respiratory effort and clear to auscultation bilaterally Cardio regular rate and regular rhythm GI soft to palpation, non-tender, non-distended and no masses Back/Spine normal ROM and normal to inspection Extremity normal to inspection and full ROM Neuro oriented x3, CN's II-XII intact bilaterally, moves all extremities, no focal motor deficits and no sensory deficits noted Sensorium / Orientation: awake and alert Psych mental status grossly normal and thought process normal Skin no rashes or lesions noted and no wounds <Dr. Cy Rhodes DO - Last Filed: 04/22/24 19:34> Physical Exam Const Vital Signs: 04/22/24 16:29 04/22/24 18:24 04/22/24 18:51 Temperature 96.3 F L 98 F Temperature Source Temporal Pulse Rate 67 82 82 Respiratory Rate 18 18 18 Blood Pressure 126/66 H 127/68 H 126/66 H Blood Pressure Mean 86 87 86 Pulse Ox 94 97 98 Oxygen Delivery Method Room Air Room Air [facility] <DANIEL Arias - Last Filed: 04/22/24 20:34> [facility] Narrative Medical decision making narrative: Patient presenting with midsternal chest pressure she has had intermittently over the past 3 days. She reports that ever since she increased her dose of metoprolol she has had the symptoms including heart rate in the mid to high 50s. Patient had a stress test 05/28 that was unremarkable, she had an echocardiogram 04/28 with an EF of 65%. She has a low Wells score, low suspicion for PE. Cardiac labs will be obtained. Chest x-ray shows nodules, nothing else acute. Her troponin is within normal limits, sodium 131, creatinine 2.42, BUN 53, this is increased from previous visit. She was given IV fluids but given her KRISTIN I do think she would benefit from admission to the hospital. I spoke with the hospitalist and she will be admitted in stable condition. Lab Data Attestation: I reviewed the patient's lab results. Labs: Laboratory Results - last 24 hr 04/22/24 16:57 WBC 8.2 RBC 4.62 Hgb 12.1 Hct 39.1 MCV 84.6 MCH 26.2 L MCHC 30.9 L RDW Std Deviation 45.9 H RDW Coeff of Esvin 15.0 H Plt Count 331 MPV 10.3 Immature Gran % (Auto) 0.100 Neut % (Auto) 74.3 H Lymph % (Auto) 17.5 L Cherry % (Auto) 6.2 Eos % (Auto) 1.3 Baso % (Auto) 0.6 Absolute Neuts (auto) 6.1 Absolute Lymphs (auto) 1.44 Nucleated RBC % 0 Sodium 131 L Potassium 5.0 Chloride 103 Carbon Dioxide 20.0 L Anion Gap 8 BUN 53 H Creatinine 2.42 H Est GFR (MDRD) Af Amer 26 L Est GFR (MDRD) Non-Af 21 L BUN/Creatinine Ratio 21.9 H Glucose 112 H Calcium 8.6 Troponin I High Sens 5 TSH 3.19 Radiography X-Ray: Read by ED Physician Diagnostic Testing: Clinical Impression(s) from Imaging Studies Chest X-Ray 04/22/24 17:20 IMPRESSION: Mild left basilar atelectasis. There is a cluster of right upper lobe nodules, likely granulomatous in nature. Electronically Signed: Christiano Ragsdale DO at 17:50 EDT , <Dr. Cy Rhodes, DO - Last Filed: 04/22/24 19:34> [facility] Lab Data Labs: Laboratory Results - last 24 hr 04/22/24 16:57 WBC 8.2 RBC 4.62 Hgb 12.1 Hct 39.1 MCV 84.6 MCH 26.2 L MCHC 30.9 L RDW Std Deviation 45.9 H RDW Coeff of Esvin 15.0 H Plt Count 331 MPV 10.3 Immature Gran % (Auto) 0.100 Neut % (Auto) 74.3 H Lymph % (Auto) 17.5 L Cherry % (Auto) 6.2 Eos % (Auto) 1.3 Baso % (Auto) 0.6 Absolute Neuts (auto) 6.1 Absolute Lymphs (auto) 1.44 Nucleated RBC % 0 Sodium 131 L Potassium 5.0 Chloride 103 Carbon Dioxide 20.0 L Anion Gap 8 BUN 53 H Creatinine 2.42 H Est GFR (MDRD) Af Amer 26 L Est GFR (MDRD) Non-Af 21 L BUN/Creatinine Ratio 21.9 H Glucose 112 H Calcium 8.6 Troponin I High Sens 5 TSH 3.19 Radiography Diagnostic Testing: Clinical Impression(s) from Imaging Studies Chest X-Ray 04/22/24 17:20 IMPRESSION: Mild left basilar atelectasis. There is a cluster of right upper lobe nodules, likely granulomatous in nature. Electronically Signed: Christiano Ragsdale DO at 17:50 EDT , EKG Initial EKG: Attestation: I personally reviewed and interpreted this EKG as follows: Interpretation: Sinus Rhythm (61) and No Acute Injury Pattern Comments: EKG was obtained. On my independent interpretation, it showed a normal sinus rhythm with a rate of 61. LA interval, QRS interval, and QTc intervals were all normal. Holden was normal. There are no acute ST or T wave changes. Prior EKG tracings: available for review Prior: Unchanged (04/18/2023) Treatment and Re-Evaluation :: I have personally performed a face to face assessment of the patient and have reviewed the AUBREY Note. I performed a substantive portion of the visit including all aspects of the following. My lynne findings include: History: Patient presents with chest pain that has been intermittent over the past couple days. Patient states that she saw her artificial limb maker recently who increased her metoprolol. Patient states that this has caused her bradycardia. Patient states that whenever her heart rate goes down into the 50s, she gets sharp pain and substernal pressure in her chest. Patient states he gets better with rest. Patient admits to some diaphoresis with this. Patient denies any shortness of breath or cough. Patient denies any fevers or chills. Patient denies any nausea or vomiting. Exam: Vital signs are stable. Patient is afebrile. Patient is in no acute distress. Oral mucosa is pink and slightly dry. Neck is supple. Trachea is midline. There is no JVD noted. Heart was regular rate and rhythm. Lungs are clear and equal bilaterally. Abdomen is soft. Bowel sounds are normal. There is no tenderness. Radial nerves II through XII are intact. There are no focal motor or sensory deficits noted. Medical Decision Making: Differential diagnosis includes cardiac dysrhythmia, cardiac ischemia, electrolyte abnormality, dehydration, pneumonia, pneumothorax, and anxiety. EKG will be obtained to assess for cardiac dysrhythmia and cardiac ischemia. Chest x-ray will be obtained to assess for pneumonia and pneumothorax. CBC will be obtained to assess for leukocytosis and anemia. Basic metabolic profile will be obtained to assess for electrolyte abnormality and renal function. High-sensitivity troponin will be obtained to assess for cardiac ischemia. Patient was given IV fluids. EKG was obtained. On my independent interpretation, it shows a normal sinus rhythm with a rate of 61. LA interval, QRS interval, and QTc intervals are within normal limits. Holden is normal. There are no acute ST or T wave changes noted. PA and lateral chest x-ray was obtained. There are 2 views. On my independent interpretation, lung tirado show mild left basilar atelectasis. There is a cluster of right upper lobe nodules, likely granulomatous disease. There is normal cardiac silhouette. Bony thorax is normal. There is no acute process noted. Radiologist also interpreted the x-ray and agrees. CBC was reviewed and was within normal limits. Basic metabolic profile was reviewed. BUN was elevated at 53 and creatinine was 2.42. These are increased from previous results. Sodium was slightly low at 131 and CO2 was low at 20. Anion gap was normal at 8. High- sensitivity troponin was reviewed and was normal at 5. Because of the acute kidney injury, recommend admission to the hospital. Patient was agreeable with this. Case was discussed with the hospitalist. He will admit the patient to his service. Patient understood and was agreeable with the plan. All questions were answered. Discharge Plan Dx/Rx/DC Orders Clinical Impression: CKD (chronic kidney disease), KRISTIN (acute kidney injury), Chest pressure Disposition Disposition: Acute Care Hospital [facility] Discharge Date/Time: 04/22/24 19:28
--- NOTE | 2024-04-22 17:20 | RAD_ITS ---
INDICATION: chest pain EXAMINATION/TECHNIQUE: X-RAY - XR Chest 2 Views COMPARISON: FINDINGS: LINES/DEVICES: None. LUNGS: Mild left basilar atelectasis. There is a cluster of right upper lobe nodules. No pneumothorax. MEDIASTINUM AND CARDIOVASCULAR STRUCTURES: Cardiac silhouette not enlarged. Central airways and mediastinal contour are unremarkable. BONES AND SOFT TISSUES: Mild degenerative vertebral changes. RAD/Chest PA and Lateral IMPRESSION: Mild left basilar atelectasis. There is a cluster of right upper lobe nodules, likely granulomatous in nature. Electronically Signed: Christiano Ragsdale DO at 17:50 EDT Reading Location ID and State: [facility] / [place] Tel [phone], Service support ,
[2024-04-22 17:31] LABS: Absolute Lymphocyte Count 1.44 X10^3/uL (0.83-4.51); Absolute Neutrophil Count 6.1 X10^3/uL (2.0-7.7); Basophil# 0.05 X10^3/uL; Basophil% 0.6 % (0-1); Eosinophil# 0.11 X10^3/uL; Eosinophils% 1.3 % (0-5); Hematocrit 39.1 % (37-47); Hemoglobin 12.1 g/dL (12.0-15.0); Lymphocyte # 1.44 X10^3/ul (0.83-4.51); Lymphocyte % 17.5 % (19-41); Mean Corp Hgb Conc 30.9 g/dL (32-36); Mean Corpuscular Hgb 26.2 pg (27.0-32.0); Mean Corpuscular Volume 84.6 fL (81-99); Mean Platelet Vol. 10.3 fl (6.2-12.0); Monocyte# 0.51 X10^3/uL; Monocyte% 6.2 % (0-10); NRBC Flagged by Analyzer 0 % (0-5); Neutrophil # 6.12 X10^3/uL (2.7-7.7); Neutrophil % 74.3 % (47-70); Platelet Count 331 K/mm3 (150-450); RBC Distribution Width SD 45.9 fl (35.1-43.9); Red Blood Count 4.62 M/mm3 (4.2-5.4); White Blood Count 8.2 K/mm3 (4.4-11.0)
[2024-04-22 18:07] LABS: Anion Gap 8 (5-15); BUN 53 mg/dL (7-18); BUN/Creat Ratio 21.9 RATIO (10-20); Calcium,Total 8.6 mg/dL (8.5-10.1); Chloride 103 mmol/L (98-107); Creatinine, Serum 2.42 mg/dL (0.55-1.02); EST Glomerular Filtration Rate 21 mL/min (>60); Est Glom Filt Rate - Afr Amer 26 mL/min (>60); Glucose 112 mg/dL (74-106); Sodium Level 131 mmol/L (136-145); Troponin-I HS 5 pg/mL (3.0-54.0)
[2024-04-22] MEDS: 0.9% Normal Saline (1000mL) 1,000 ML 999 ML IV (18:21)
--- NOTE | 2024-04-22 18:54 | PCM.HP.STD ---
[facility] - General General Date of Admission: 04/22/24 Date of Service: 04/22/24 Chief Complaint: Chest Pressure and Dehydration. [facility] Narrative LENNY LUO, is a 64 F with a past medical history of essential hypertension, hyperlipidemia, history of thyroid cancer; s/p thyroidectomy on levothyroxine, morbid obesity; with BMI of 43.9 this admission, obstructive sleep apnea, history of tobacco abuse with chronic bronchitis; ~1 pack/day times ~20 years (quit 2012), CAD, PAD, CKD; stage IV with baseline creatinine of ~1.8 mg/dL, NANCIE, history of polyclonal gammopathy, history of carnitine palmitoyl transferase II deficiency, polyneuropathy; history of cervical radiculopathy, history of NSVT; followed by Dr. Shine of [facility], history of syncope, depression, chronic diarrhea, GERD, history of hysterectomy, history of rotator cuff repair, history of cataract; s/p extraction and osteoarthritis; with history of low back pain and total knee replacement who presents to [facility] ER complaining of chest pressure and dehydration. Ms. Luo reports her symptoms began approximately 3 days prior to admission with intermittent chest pain that was midsternal, pressure-like, nonradiating and moderate with nothing seeming to make the pain better or worse. She recently had her metoprolol increased a few days ago to 100 mg p.o. twice daily due to her history of NSVT. She is scheduled to see an high density finishing operator soon. Her heart rate was noted to be in the high to mid ~50 bpm range and she had an echocardiogram in April 2023 with LVEF of ~65% and she underwent nuclear stress test in May 2023 that was negative for flow-limiting ischemia. She denies associated fever, chills, nausea, vomiting, recent travel, recent surgery, recent immobilization, prior DVT or PE or known malignancy. In the ER she was noted to have a normal troponin and a nonspecific EKG with intermittent chest pain complicated by laboratory evidence of KRISTIN; in the setting of stage IV CKD with elevated creatinine of 2.4 to mg/dL and a BUN of 53 mg/dL present on admission (up from her baseline of 39 mg/dL less than 2 weeks ago) and she was then admitted to the PCU under observation status for stay that is expected to be less than 2 midnights. [facility] Medical History (Updated 04/22/24 @ 20:[address] Oj Deshpande, DO) Anxiety Depression Osteoporosis Smoker On home oxygen therapy COPD (chronic obstructive pulmonary disease) Hypertension Hx of ventricular tachycardia COPD (chronic obstructive pulmonary disease) Chronic hypoxemic respiratory failure Polyclonal gammopathy Bence Davila protein present in urine Obesity Nonsustained ventricular tachycardia Coronary artery disease Syncope Palpitations Thyroid cancer Syncope and collapse Essential hypertension Fatigue Cervical radiculopathy Smoking greater than 30 pack years Hypoxia Chronic diarrhea Recurrent falls Fatty liver FELISA (obstructive sleep apnea) CKD (chronic kidney disease) stage 4, GFR 15-29 ml/min Acquired hypothyroidism History of vitamin D deficiency Peripheral arterial disease Low back pain Vertigo Polyneuropathy Insomnia Myalgia Neck pain Carnitine palmitoyltransferase II deficiency Vision problems Thyroid cancer GERD (gastroesophageal reflux disease) Osteoarthritis Hypothyroid Neuropathy Kidney disease Hypertension History of emotional problems Chronic bronchitis Home Medications ?Medication ?Instructions ?Recorded ?Last Taken ?Type Disability Placard #1 ea 02/07/23 Unknown Rx aspirin 81 mg tablet,delayed 81 mg PO DAILY 04/18/23 Unknown History release (Adult Low Dose Aspirin) cholecalciferol (vitamin D3) 50 50 mcg PO DAILY 04/18/23 Unknown History mcg (2,000 unit) capsule ferrous sulfate 325 mg (65 mg 325 mg PO DAILY 04/18/23 Unknown History iron) tablet levocarnitine 330 mg tablet 330 mg PO TID 04/18/23 Unknown History doxepin 100 mg capsule 100 mg PO QHS #30 caps 11/28/23 Unknown Rx tizanidine 4 mg tablet See Rx Instructions .Route 11/28/23 Unknown Rx .COMPLEX #120 tabs duloxetine 60 mg capsule,delayed 60 mg PO DAILY #90 caps 12/11/23 Unknown Rx release hyoscyamine sulfate 0.125 mg tablet mg PO 12/11/23 Unknown History fluticasone fur. 200 mcg-umeclid 1 inh inhalation DAILY #3 ea 02/12/24 Unknown Rx 62.5 mcg-vilant 25 mcg inhalat.powder (Trelegy Ellipta) compr.stocking,thigh,short,lrg #24 ea 02/29/24 Unknown Rx omeprazole 40 mg capsule,delayed 40 mg PO DAILY #90 caps 03/04/24 Unknown Rx release lovastatin 10 mg tablet 10 mg PO QPM #90 tabs 03/06/24 Unknown Rx nifedipine 30 mg tablet,extended 30 mg PO DAILY #90 tabs 03/06/24 Unknown Rx release lisinopril 10 mg tablet 10 mg PO DAILY #90 tabs 04/16/24 Unknown Rx metoprolol tartrate 100 mg tablet 100 mg PO BID #90 tabs 04/16/24 Unknown Rx levothyroxine 175 mcg tablet 175 mcg PO .bedtime 04/22/24 Unknown History Allergy/AdvReac Type Severity Reaction Status Date / Time Penicillins Allergy Unknown Unknown Verified 04/22/24 16:29 Family History Mother CVA (cerebral vascular accident) Heart disease Arthritis Lupus Father Myocardial infarction Hypertension Brother Colon cancer Brother Colon cancer Brother Cancer stomach Sister Seizures Grandfather Myocardial infarction Grandmother Myocardial infarction Surgical History (Updated 04/22/24 @ 19:53 by Irma Giron) History of cholecystectomy Cataract extraction status History of surgical procedure H/O thyroidectomy S/P cholecystectomy History of surgical procedure H/O wrist surgery History of repair of rotator cuff History of hysterectomy Hx of total knee replacement Social History household members: none housing: apartment current occupational status: unemployed Smoking Status: Former smoker quit date: 07/10/13 pack-years: 20 Tobacco: How many years used: 20 Electronic Cigarette Use: not used second hand exposure: No alcohol intake: never substance use type: marijuana and other details: THC gummy caffeine: Yes Type: coffee Number of servings: 2 what type of physical activity do you participate in: none seatbelt use: always do you feel safe at home: Yes ROS ROS Narrative Review of systems: General: Patient denies fever or chills. HENT: Denies headache, denies stuffy nose, denies sore throat EYES: Denies changes in vision or discharge from eyes. Resp: Denies cough, denies shortness of breath Cardiac: Patient admits to intermittent chest pain that was pressure-like and not made better or worse by anything as per HPI. GI: Denies abdominal pain, denies changes in bowel, denies nausea or vomiting. : Denies changes in urination Extremity: Denies swelling Musculoskeletal: Feels somewhat generally weak and unwell but denies arthralgias or myalgias Neuro: Patient denies headache, paresthesias or focal neurologic deficits. Heme: Denies any bleeding or bruising Skin: Denies rashes Psychiatric: No complaints voiced related uncontrolled depression or anxiety. Endocrine: No polyuria, polydipsia or polyphagia. The rest of the 14 point ROS was negative except for positives in HPI. Vital Signs Vital Signs Vital Signs: 04/22/24 16:29 04/22/24 18:24 04/22/24 18:51 Temperature 96.3 F L 98 F Temperature Source Temporal Pulse Rate 67 82 82 Respiratory Rate 18 18 18 Blood Pressure 126/66 H 127/68 H 126/66 H Blood Pressure Mean 86 87 86 Pulse Ox 94 97 98 Oxygen Delivery Method Room Air Room Air Physical Exam Const alert, oriented x3, no apparent distress and healthy appearing HEENT normocephalic, head/scalp atraumatic and hearing grossly normal bilaterally HEENT Narrative: Mucous membranes dry. Eyes PERRL and EOMs intact bilaterally Neck no lymphadenopathy and supple Resp normal respiratory effort, no retractions, no use of accessory muscles and clear to auscultation bilaterally Cardio regular rate and regular rhythm GI normal to inspection, nondistended, normoactive bowel sounds, soft to palpation, non-tender and non-distended Extremity normal to inspection and full ROM Skin Skin Narrative: Patient has no evidence of abscess, jaundice or rash. Neuro oriented x3, CN's II-XII intact bilaterally, moves all extremities and no focal motor deficits Sensorium / Orientation: awake, alert, oriented to person, oriented to place and oriented to time Speech: speech normal Motor Exam: strength 5/5 throughout Psych affect normal Results Medical Records Data Attestation: I reviewed the patient's medical records Lab / Micro Data Attestation: I reviewed the patient's lab results. 04/22/24 16:57 04/22/24 16:57 Labs: Laboratory Results - last 24 hr 04/22/24 16:57: WBC 8.2, RBC 4.62, Hgb 12.1, Hct 39.1, MCV 84.6, MCH 26.2 L, MCHC 30.9 L, RDW Std Deviation 45.9 H, RDW Coeff of Esvin 15.0 H, Plt Count 331, MPV 10.3, Immature Gran % (Auto) 0.100, Neut % (Auto) 74.3 H, Lymph % (Auto) 17.5 L, Davidson % (Auto) 6.2, Eos % (Auto) 1.3, Baso % (Auto) 0.6, Absolute Neuts (auto) 6.1, Absolute Lymphs (auto) 1.44, Nucleated RBC % 0, Sodium 131 L, Potassium 5.0, Chloride 103, Carbon Dioxide 20.0 L, Anion Gap 8, BUN 53 H, Creatinine 2.42 H, Est GFR (MDRD) Af Amer 26 L, Est GFR (MDRD) Non-Af 21 L, BUN/Creatinine Ratio 21.9 H, Glucose 112 H, Calcium 8.6, Troponin I High Sens 5 Imaging Radiology Impression Chest X-Ray 04/22/24 17:20 IMPRESSION: Mild left basilar atelectasis. There is a cluster of right upper lobe nodules, likely granulomatous in nature. Electronically Signed: Christiano Ragsdale DO at 17:50 EDT Reading Location ID and State: [facility] / [place] Tel [phone], Service support , [facility] Imaging Services [address] [place] [id number] Chest without Contrast MR#: [id number] Acct: [id number] Name: LENNY LUO Rep #: [id number] : 1960 F 64 From: Christiano Ragsdale DO PCP: Dr. Jennifer Gordon MD Status: ADM ELIZABETH Study: Chest without Contrast Date of Exam: 04/22/24 Exam# [id number] Ordering Dr: Oj Deshpande DO INDICATION: Right upper lobe lesion on cxr with h/o tobacco abuse EXAMINATION: CT CHEST WITHOUT CONTRAST - CT Chest W/O Contrast Injection TECHNIQUE: Helically acquired images were obtained of the chest. The protocol utilizes one or more of the following dose reduction techniques: automated exposure control, adjustment of mA and/or kV according to patient size,and/or use of iterative reconstruction technique. IV Contrast dosage and agent: None. RADIATION DOSAGE (If Supplied By Facility): CTDIvol = ( 16.08 ) mGy, DLP = ( 562.62 ) mGycm COMPARISON: FINDINGS: LUNGS, PLEURA AND LARGE AIRWAYS: There is a cluster of right upper lobe granulomatous calcifications. No masses, consolidation, or edema. No pleural effusion or thickening. No pneumothorax. THYROID: No thyroid lesions. HEART AND PERICARDIUM: Heart size is normal. No pericardial effusion. CORONARY ARTERIES: Mild coronary artery calcifications VESSELS: Thoracic aorta is not dilated. MEDIASTINUM AND MILTON: No mediastinal or hilar adenopathy. Esophagus is unremarkable. No hiatal hernia. UPPER ABDOMEN: No acute pathology. BONES: No suspicious lytic or blastic abnormality. CT/Chest without Contrast IMPRESSION: No acute pathology noted. Right upper lobe granulomatous calcific cluster. Electronically Signed: Christiano Ragsdale DO at 21:11 EDT Reading Location ID and State: [address] [place] [address] Tel [phone], Service support , CC: Dr. Jennifer Gordon MD; Dr. Oj Deshpande DO ~ Operations Support Coordinator: Signed Assessment & Plan Assessment/Plan (1) Chest pain: QUALIFIERS: Chest pain type: unspecified Qualified Code(s): R07.9 - Chest pain, unspecified (2) Coronary artery disease: QUALIFIERS: Associated angina: with stable angina Coronary Disease-Associated Artery/Lesion type: unspecified vessel or lesion type [place] vs. transplanted heart: [place] heart Qualified Code(s): I25.118 - Atherosclerotic heart disease of [place] coronary artery with other forms of angina pectoris (3) KRISTIN (acute kidney injury): (4) CKD (chronic kidney disease): QUALIFIERS: Chronic kidney disease stage: stage 4 (severe) Qualified Code(s): N18.4 - Chronic kidney disease, stage 4 (severe) (5) Abnormal chest x-ray: (6) Nonsustained ventricular tachycardia: (7) Morbid obesity with BMI of 40.0-44.9, adult: PLAN: Plan 1. Chest pain; intermittent x 3 days in the setting of known CAD and NSVT with recent increased dose of metoprolol to 100 mg p.o. twice daily followed by Dr. Shine of [facility] with echocardiogram in April 2023 with LVEF of ~65% and she underwent nuclear stress test in May 2023 that was negative for flow-limiting ischemia - Admit to PCU under observation status. Serialize troponin. Recheck echocardiogram to evaluate LVEF. Check Lexiscan nuclear stress test to evaluate for possible underlying ischemia. Give sublingual nitroglycerin as needed angina. Otherwise, give Tylenol as needed pain or fever. 2. KRISTIN; in the setting of stage IV CKD with elevated creatinine of 2.4 to mg/dL and a BUN of 53 mg/dL present on admission (up from her baseline of 39 mg/dL less than 2 weeks ago) complicating #1 - Give normal saline IV fluid and recheck BMP in the a.m. to ensure improvement back to baseline. Hold Lisinopril plus other potentially nephrotoxic agents. 3. Abnormal chest x-ray showing suspected granulomatous disease in the Right upper lobe and Left lower lobe atelectasis in the setting of known previous tobacco abuse with chronic bronchitis; ~1 pack/day times ~20 years (quit 2012) compounding #1 & #2 - Check CT scan of the chest without contrast to gain a more detailed study of her lesion in the Right upper lobe and then reassess. 4. Essential hypertension - Resume home regimen except hold Lisinopril until kidney function normalizes plus give as needed IV hydralazine for systolic blood pressure greater than 160 mmHg. 5. Hyperlipidemia - Continue statin and recheck lipid profile this admission in light of #1. 6. History of thyroid cancer; s/p thyroidectomy on levothyroxine - Resume levothyroxine at current dose plus check TSH. 7. Obesity; with BMI of 35 this admission - Weight loss will be recommended. 8. Obstructive sleep apnea - Continue nocturnal CPAP. 9. PAD - Stable. 10. NANCIE - Resume oral iron supplementation with hemoglobin of 12.1 g/dL present on admission. 11. History of polyclonal gammopathy - Noted. 12. History of carnitine palmitoyl transferase II deficiency - Continue carnitine supplementation as previous. 13. Polyneuropathy; with history of cervical radiculopathy - Noted. 14. History of syncope - Noted. 15. Depression - Resume current antidepressant regimen. 16. Chronic diarrhea - Noted with no complaints of diarrhea upon admission. 17. GERD - Continue PPI. 18. History of hysterectomy - Noted. 19. History of rotator cuff repair - Noted. 20. History of cataract; s/p extraction - Noted. 21. Osteoarthritis; with history of low back pain and total knee replacement - Give Tylenol as needed. 22. DVT prophylaxis - Heparin 5,000 units SQ 3 times daily. Total time: Approximately 85 minutes. Charges/Coding Visit Charges OBSV E&M: 03508 Observ/hosp same date L2
--- NOTE | 2024-04-22 19:26 | CT_ITS ---
INDICATION: Right upper lobe lesion on cxr with h/o tobacco abuse EXAMINATION: CT CHEST WITHOUT CONTRAST - CT Chest W/O Contrast Injection TECHNIQUE: Helically acquired images were obtained of the chest. The protocol utilizes one or more of the following dose reduction techniques: automated exposure control, adjustment of mA and/or kV according to patient size,and/or use of iterative reconstruction technique. IV Contrast dosage and agent: None. RADIATION DOSAGE (If Supplied By Facility): CTDIvol = ( 16.08 ) mGy, DLP = ( 562.62 ) mGycm COMPARISON: FINDINGS: LUNGS, PLEURA AND LARGE AIRWAYS: There is a cluster of right upper lobe granulomatous calcifications. No masses, consolidation, or edema. No pleural effusion or thickening. No pneumothorax. THYROID: No thyroid lesions. HEART AND PERICARDIUM: Heart size is normal. No pericardial effusion. CORONARY ARTERIES: Mild coronary artery calcifications VESSELS: Thoracic aorta is not dilated. MEDIASTINUM AND MILTON: No mediastinal or hilar adenopathy. Esophagus is unremarkable. No hiatal hernia. UPPER ABDOMEN: No acute pathology. BONES: No suspicious lytic or blastic abnormality. CT/Chest without Contrast IMPRESSION: No acute pathology noted. Right upper lobe granulomatous calcific cluster. Electronically Signed: Christiano Ragsdale DO at 21:11 EDT Reading Location ID and State: [facility] / [place] Tel [phone], Service support ,
--- NOTE | 2024-04-22 19:26 | ECHOD_ITS ---
Reason For Study: Chest pressure Procedure This was a 2D Doppler, Color Flow transthoracic echocardiogram. Exam performed portable in patient room. Left Ventricle Normal left ventricle. Mild concentric left ventricular hypertrophy. Left ventricular systolic function is normal. The left ventricular ejection fraction is 60 %. No regional wall motion abnormalities noted. Right Ventricle Normal RV size. Normal systolic function. Atria Normal left atrium. Normal right atrium. Mitral Valve Normal mitral valve. Mild (1+) eccentric mitral valve insufficiency. Tricuspid Valve Normal tricuspid valve. Aortic Valve Trisinus/trileaflet aortic valve. Pulmonic Valve Normal pulmonic valve. Great Vessels Normal aortic root. The pulmonary artery is normal size. Normal inferior vena cava. Pericardium/Pleural No pericardial effusion. MMode/2D Measurements & Calculations LVIDd: 4.4 cm IVSd: 1.5 cm LVOT diam: 2.1 cm LVIDs: 2.8 cm LVPWd: 1.2 cm LVOT area: 3.5 cm2 RVDd: 3.5 cm FS: 35.9 % Ao root diam: 3.3 cm LAV(MOD-bp): 55.1 ml LVAd ap4: 31.0 cm2 LAV(MOD-bp) Indexed: 24.8 ml/m2 LVLd ap4: 8.2 cm LAV(MOD-sp2): 59.1 ml EDV(MOD-sp4): 99.8 ml LAV(MOD-sp4): 48.0 ml EDV(sp4-el): 99.8 ml LVAs ap4: 18.0 cm2 LVLs ap4: 6.8 cm ESV(MOD-sp4): 41.0 ml ESV(sp4-el): 40.2 ml EF(MOD-sp4): 58.9 % EF(sp4-el): 59.7 % LVAd ap2: 29.8 cm2 SV(MOD-sp4): 58.8 ml SV(MOD-sp2): 54.3 ml LVLd ap2: 7.9 cm EDV(MOD-sp2): 94.2 ml EDV(sp2-el): 95.0 ml LVAs ap2: 17.9 cm2 LVLs ap2: 7.2 cm ESV(MOD-sp2): 39.8 ml ESV(sp2-el): 37.8 ml EF(MOD-sp2): 57.7 % SV(sp4-el): 59.5 ml LA dimension(2D): 4.1 cm LA A4 area: 18.0 cm2 RA A4 area: 14.9 cm2 TAPSE: 2.4 cm Time Measurements MV dec time: 0.18 sec Doppler Measurements & Calculations MV E max dread: 97.6 cm/sec Lat Peak E' Dread: 8.3 cm/sec Med Peak E' Dread: 7.2 cm/sec MV A max dread: 85.0 cm/sec E/E' lat: 11.7 E/E' med: 13.5 MV E/A: 1.1 Ao V2 max: 128.7 cm/sec LV V1 max: 103.9 cm/sec MV dec slope: 555.2 cm/sec2 Ao max P.6 mmHg LV V1 max P.3 mmHg Ao V2 mean: 84.8 cm/sec LV V1 mean P.5 mmHg Ao mean P.3 mmHg LV V1 mean: 75.5 cm/sec Ao V2 VTI: 31.6 cm LV V1 VTI: 25.9 cm AV (velocity ratio): 0.82 ILSA(I,D): 2.9 cm2 ILSA(V,D): 2.8 cm2 SV(LVOT): 90.6 ml PA V2 max: 66.9 cm/sec PA max PG (full): 0.63 mmHg ECHO/Echo Complete Interpretation Summary Normal left ventricle. Left ventricular systolic function is normal. The left ventricular ejection fraction is 60 %. Mild (1+) eccentric mitral valve insufficiency. Mild concentric left ventricular hypertrophy. Ordering Physician: Oj Deshpande Referring Physician: Jennifer Gordon Performed By: Lulu Zhu RDCS
[2024-04-22 20:05] LABS: Thyroid Stim Hormone (TSH) 3.19 uIU/mL (0.358-3.74)
[2024-04-22 21:20] LABS: Troponin-I HS 9 pg/mL (3.0-54.0)
--- NOTE | 2024-04-22 22:22 | EKG12_ITS ---
Test Reason : AM EKG Blood Pressure : / mmHG Vent. Rate : 059 BPM Atrial Rate : 059 BPM P-R Int : 184 ms QRS Dur : 096 ms QT Int : 414 ms P-R-T Axes : 071 027 036 degrees QTc Int : 409 ms Sinus bradycardia Otherwise normal ECG When compared with ECG of 22-APR-2024 20:43, MANUAL COMPARISON REQUIRED, DATA IS UNCONFIRMED Confirmed by JANET HUNTER, DOROTHY ([id number]), editor map JACIEL POWERS ([id number]) on 04/24/2024 9:45:22 AM Referred By: Confirmed By:DOROTHY GONZALES MD
[2024-04-22] MEDS: Heparin Injection (Vial) 5,000 UNIT/ML VIAL 5000 UNIT SC (22:32)
[2024-04-22] MEDS: Levothyroxine 175 MCG Tablet PO (22:32)
[2024-04-22] MEDS: DOXEPIN HCL 50 MG CAPSULE 100 MG PO (22:32)
[2024-04-22] MEDS: Metoprolol Tartrate 25 MG Tablet 75 MG PO (22:32)
[2024-04-22] MEDS: Atorvastatin Calcium 10 MG Tablet 5 MG PO (22:32)
[2024-04-22 23:21] LABS: Troponin-I HS 7 pg/mL (3.0-54.0)
[2024-04-23] VITALS (11 sets, daily range): BP systolic 102–174; BP diastolic 47–77; PULSE 60–70; RESP 16–18; TEMP 36.1–36.9; O2SAT 93–100
[2024-04-23 03:45] LABS: Troponin-I HS 10 pg/mL (3.0-54.0)
--- NOTE | 2024-04-23 05:55 | EKG12_ITS ---
Test Reason : CP ADMISSION Blood Pressure : / mmHG Vent. Rate : 065 BPM Atrial Rate : 065 BPM P-R Int : 174 ms QRS Dur : 094 ms QT Int : 396 ms P-R-T Axes : 072 034 057 degrees QTc Int : 411 ms Normal sinus rhythm Normal ECG When compared with ECG of 22-APR-2024 16:49, MANUAL COMPARISON REQUIRED, DATA IS UNCONFIRMED Confirmed by JANET HUNTER, DOROTHY ([id number]), index editor JACIEL POWERS ([id number]) on 04/24/2024 9:58:35 AM Referred By: HANSEN Confirmed By:DOROTHY GONZALES MD
[2024-04-23] MEDS: Aspirin E.C. 81 MG Tablet PO (06:39)
[2024-04-23 06:46] LABS: Cholesterol 152 mg/dL (200); High Density Lipoprotein 32 mg/dL; Triglycerides 183 mg/dL; Very Low Density Lipoprotein 37 mg/dL (5-40)
[2024-04-23] MEDS: Ipratropium/Albuterol Sulfate 3 ML AMPUL.NEB INHALATION ×3 (07:11→20:30)
[2024-04-23] MEDS: Budesonide Respules 0.5 MG/2 ML AMPUL.NEB. INHALATION ×2 (07:11→20:30)
[2024-04-23] MEDS: 0.9% Normal Saline (1000mL) 1,000 ML 100 ML IV ×2 (09:01→20:52)
[2024-04-23] MEDS: Acetaminophen 325 MG Tablet 650 MG PO (11:19)
[2024-04-23] MEDS: NIFEdipine 30 MG Tablet PO (11:20)
[2024-04-23] MEDS: Metoprolol Tartrate 25 MG Tablet 75 MG PO ×2 (11:21→21:04)
[2024-04-23] MEDS: 0.9% Saline Lock 10 ML Syringe IV (11:21)
--- NOTE | 2024-04-23 11:50 | CASEMGMT ---
ADVANCE DIRECTIVE VALIDATION Received notice of advance directive validation. Patient answered upon admission that does not have any directives in placed; also declined wanting any further information on this topic. No further needs requested or indicated for this topic. -CASSANDRA Manzo
--- NOTE | 2024-04-23 14:15 | STRESSREP ---
Stress Test Report Pharmacologic myocardial perfusion stress test. 64-year-old lady with a history of chest pain Resting EKG demonstrates sinus rhythm with a rate of 60 bpm. Resting blood pressure is 145/88 mmHg. 0.4 mg of regadenoson was infused per usual protocol followed by rapid intravenous saline flush injection. Continuous EKG monitoring was performed. The maximum heart rate was 86 bpm which was 55% of max impacted heart rate the maximum workload was 1 metabolic equivalent. At rest there were no ST or T wave changes noted to suggest ischemia and at peak infusion nonspecific ST changes were noted which did not meet the criteria for ischemia. No clinical angina is noted. The final blood pressure was 159/62 mmHg. Myocardial perfusion protocol. 14.9 mCi of technetium 99m sestamibi was injected at rest. 0.4 mg of regadenoson was infused per usual protocol. At peak infusion 44.8 mCi of technetium 99m sestamibi was injected stress images were obtained stress and rest images were reconstructed and compared in the short axis vertical long and horizontal long axis. . Perfusion SPECT analysis: Review of the stress images demonstrate normal uptake of tracer noted in all areas of the myocardium. The resting images similar demonstrated normal uptake of tracer noted in all areas of the myocardium. No areas of reversibility are noted to suggest ischemia and no previous infarct is noted. Conclusion: Normal pharmacologic myocardial perfusion stress test. Preserved ejection fraction.
[2024-04-23] MEDS: Cholecalciferol (VIT D3) 25 MCG TABLET (1,000 UNITS) 50 MCG PO (14:24)
[2024-04-23] MEDS: Ferrous Sulfate 325 MG Tablet PO (14:24)
[2024-04-23] MEDS: Pantoprazole Sodium 40 MG Tablet PO (14:24)
[2024-04-23] MEDS: DULoxetine Hcl 60 MG Capsule PO (14:24)
[2024-04-23] MEDS: Heparin Injection (Vial) 5,000 UNIT/ML VIAL 5000 UNIT SC ×2 (14:25→21:06)
[2024-04-23] MEDS: levOCARNitine 330 MG TABLET PO ×2 (14:25→21:05)
--- NOTE | 2024-04-23 16:09 | CASEMGMT ---
Met with patient to complete BREAUX form. BREAUX form explained to patient who voiced understanding and signed form. Original form placed in pt?s chart. Patient declined copy. Christal Justin, Discharge Planning Asst
--- NOTE | 2024-04-23 16:52 | PN.HOSP_ITS ---
Subjective Subjective doing well, no issues overnight. Echo with an EF of 60% and stress test unremarkable Objective Data Objective Data Vital Signs: Vital Signs Temp Pulse Resp BP Pulse Ox O2 Del Method O2 Flow Rate 98.2 F 66 16 148/63 H 93 Room Air 4 04/23/24 14:18 04/23/24 14:18 04/23/24 14:18 04/23/24 14:18 04/23/24 14:18 04/23/24 14:18 04/23/24 07:57 Oxygen Flow Rate (L/min) 4 Oxygen Delivery Method Room Air Weight: 263 lb 10.766 oz Body Mass Index (BMI) 43.9 Intake & Output: Intake and Output for Last 24 Hours 04/22/24 04/23/24 04/24/24 03:59 03:59 03:59 Intake Total 1000 / 1000 Balance 1000 / 1000 Lab / Micro Data 04/22/24 16:57 04/22/24 16:57 Labs: Laboratory Results - last 24 hr 04/22/24 16:57: WBC 8.2, RBC 4.62, Hgb 12.1, Hct 39.1, MCV 84.6, MCH 26.2 L, M CHC 30.9 L, RDW Std Deviation 45.9 H, RDW Coeff of Esvin 15.0 H, Plt Count 331, MPV 10.3, Immature Gran % (Auto) 0.100, Neut % (Auto) 74.3 H, Lymph % (Auto) 17.5 L, Woodruff % (Auto) 6.2, Eos % (Auto) 1.3, Baso % (Auto) 0.6, Absolute Neuts (auto) 6.1, Absolute Lymphs (auto) 1.44, Nucleated RBC % 0, Sodium 131 L, Potassium 5.0, Chloride 103, Carbon Dioxide 20.0 L, Anion Gap 8, BUN 53 H, C reatinine 2.42 H, Est GFR (MDRD) Af Amer 26 L, Est GFR (MDRD) Non-Af 21 L, B UN/Creatinine Ratio 21.9 H, Glucose 112 H, Calcium 8.6, Troponin I High Sens 5, TSH 3.19 04/22/24 20:51: Troponin I High Sens 9 04/22/24 22:51: Troponin I High Sens 7 04/23/24 03:16: Troponin I High Sens 10, Triglycerides 183, Cholesterol 152, LDL Cholesterol 83, VLDL Cholesterol 37, HDL Cholesterol 32 L Radiography Diagnostic Testing: Radiology Impression Chest X-Ray 04/22/24 17:20 IMPRESSION: Mild left basilar atelectasis. There is a cluster of right upper lobe nodules, likely granulomatous in nature. Electronically Signed: Christiano RagsdaleDO at 17:50 EDT , Chest CT 04/22/24 19:26 IMPRESSION: No acute pathology noted. Right upper lobe granulomatous calcific cluster. Electronically Signed: Christiano DO Jn at 21:11 EDT , Echocardiogram 04/22/24 19:26 Interpretation Summary Normal left ventricle. Left ventricular systolic function is normal. The left ventricular ejection fraction is 60 %. Mild (1+) eccentric mitral valve insufficiency. Mild concentric left ventricular hypertrophy. Ordering Physician: Oj Deshpande Referring Physician: Jennifer Gordon Performed By: Lulu Zhu RDCS Physical Exam Narrative General: Alert, Oriented x3, Cooperative, No apparent distress HEENT: Atraumatic, PERRLA, EOMI, Normocephalic Oral: Moist Mucosa Neck: Supple, No JVD Lungs: Diminished, Normal air movement, No rhonchi, No wheeze, No rales Cardiovascular: Regular rate, Regular Rhythm, Normal S1, Normal S2, No murmurs Abdomen: Soft, Non Tender, Non-Distended, No Hepato-splenomegaly Extremities: No edema, Capillary Refill Less than 3 Seconds Skin: No rashes, No breakdown Musculoskeletal: No Tenderness to Palpation of Joints or Extremities Neurological: No focal neurological deficits, Motor Exam 5/5 strength throughout, Sensory exam intact to light touch and pain Psych/Mental Status: Normal Affect, Appropriate Assessment & Plan Assessment/Plan (1) Chest pain: QUALIFIERS: Chest pain type: unspecified Qualified Code(s): R07.9 - Chest pain, unspecified (2) Coronary artery disease: QUALIFIERS: Coronary Disease-Associated Artery/Lesion type: u nspecified vessel or lesion type [place] vs. transplanted heart: [place] heart A ssociated angina: with stable angina Qualified Code(s): I25.118 - Atherosclerotic heart disease of [place] coronary artery with other forms of angina pectoris (3) CKD (chronic kidney disease): QUALIFIERS: Chronic kidney disease stage: stage 4 (severe) Q ualified Code(s): N18.4 - Chronic kidney disease, stage 4 (severe) (4) Abnormal chest x-ray: (5) Nonsustained ventricular tachycardia: (6) Morbid obesity with BMI of 40.0-44.9, adult: PLAN: Plan 1. Chest pain rule out/CAD/SVT/essential HTN/HLD ? Echo and stress test were unremarkable ? Continue her home blood pressure medications, will hold hold lisinopril as her creatinine did rise slightly, though not enough to be considered an KRISTIN based on her baseline of 1.9 ? Continue with her home cholesterol medication 2. 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 This is consistent from previous CT scans ? She was seen as an outpatient by oncology for plasma cell dyscrasia, she is was being monitored at this point 3. History of thyroid cancer status post thyroidectomy ? Continue with Synthroid ? TSH is 3.19 so stable 4. Iron deficiency anemia ? Stable ? Continue with her home iron 5. Anxiety/depression ? Stable Continue with her home medications 6. GERD ? Stable ? Continue with PPI DVT: Heparin Charges/Coding Visit Charges Inpatient E&M: 04660 Subs Hosp L2
[2024-04-23] MEDS: tiZANidine HCl 2 MG Tablet PO (19:02)
[2024-04-23] MEDS: Levothyroxine 175 MCG Tablet PO (21:04)
[2024-04-23] MEDS: DOXEPIN HCL 50 MG CAPSULE 100 MG PO (21:05)
[2024-04-23] MEDS: Atorvastatin Calcium 10 MG Tablet 5 MG PO (21:06)
[2024-04-24 03:23] VITALS: BP 134/62; PULSE 77; RESP 18; TEMP 36.4; O2SAT 99
[2024-04-24] MEDS: levOCARNitine 330 MG TABLET PO (05:19)
[2024-04-24] MEDS: Heparin Injection (Vial) 5,000 UNIT/ML VIAL 5000 UNIT SC (05:19)
[2024-04-24] MEDS: 0.9% Normal Saline (1000mL) 1,000 ML 100 ML IV (06:06)
[2024-04-24 06:59] LABS: Anion Gap 4 (5-15); BUN 23 mg/dL (7-18); BUN/Creat Ratio 15.2 RATIO (10-20); Calcium,Total 8.3 mg/dL (8.5-10.1); Chloride 111 mmol/L (98-107); Creatinine, Serum 1.51 mg/dL (0.55-1.02); EST Glomerular Filtration Rate 37 mL/min (>60); Est Glom Filt Rate - Afr Amer 44 mL/min (>60); Estimated Creatinine Clearance 47.46 ml/min; Glucose 98 mg/dL (74-106); Potassium 4.7 mmol/L (3.5-5.1); Sodium Level 139 mmol/L (136-145)
--- NOTE | 2024-04-24 07:12 | DCINST_ITS ---
Discharge Instructions Diet Discharge Diet: Low fat / Low cholesterol Activity Discharge Activity: Return to Normal Activity Dressing / Incision Call your doctor if you observe: Fever of 101 or Higher, Shortness of breath, Dizziness, Fainting spells, Swelling in the ankles, Chest pain and Increased palpitations (irregular heartbeat) Follow Up Care Test Results: Test results from this visit will be discussed in further detail at your follow- up appointment, if applicable. Discharge Plan Admission Admit Date/Time: 04/22/24 19:20 Attending Provider: Arnel Cano Primary Care Provider: Jennifer Gordon Consulting Providers: Oj Deshpande Instructions Additional Instructions / Restrictions: Follow-up with your PCP in 3 to 5 days to monitor your kidney function Discharge Orders/Prescriptions Prescriptions: Continued (DME) Disability Placard See Rx Instructions .Route .MEDSUPPLY Qty: 1 0RF Rx Instructions: Expiration 02/07/2026 tizanidine 4 mg tablet See Rx Instructions .ROUTE .COMPLEX Qty: 120 9RF Rx Instructions: Take 1 tablet orally twice daily and 3 tablets nightly as needed for muscle pain/spasm. doxepin 100 mg capsule 100 mg PO QHS Qty: 30 9RF levocarnitine 330 mg tablet 330 mg PO TID aspirin [Adult Low Dose Aspirin] 81 mg tablet,delayed release (DR/EC) 81 mg PO DAILY cholecalciferol (vitamin D3) 50 mcg (2,000 unit) capsule 50 mcg PO DAILY ferrous sulfate 325 mg (65 mg iron) tablet 325 mg PO DAILY hyoscyamine sulfate 0.125 mg tablet PO duloxetine 60 mg capsule,delayed release(DR/EC) 60 mg PO DAILY Qty: 90 1RF (DME) compr.stocking,thigh,short,lrg Misc See Rx Instructions .Route Qty: 24 0RF Rx Instructions: As directed metoprolol tartrate 100 mg tablet 100 mg PO BID Qty: 90 3RF lisinopril 10 mg tablet 10 mg PO DAILY Qty: 90 3RF levothyroxine 175 mcg tablet 175 mcg PO .bedtime Trelegy Ellipta 200-62.5-25 mcg blister with device 1 inh inhalation DAILY Qty: 3 3RF omeprazole 40 mg capsule,delayed release(DR/EC) 40 mg PO DAILY Qty: 90 1RF lovastatin 10 mg tablet 10 mg PO QPM Qty: 90 1RF nifedipine 30 mg tablet extended release 30 mg PO DAILY Qty: 90 1RF Referrals / Follow Up: Jennifer Gordon MD [Primary Care Provider] - Within 1 Week Disposition Disposition (needs filled in before D/C Order can be placed): Home, Self Care
[2024-04-24] MEDS: tiZANidine HCl 2 MG Tablet PO (07:43)
[2024-04-24] MEDS: Aspirin E.C. 81 MG Tablet PO (07:43)
[2024-04-24] MEDS: Ferrous Sulfate 325 MG Tablet PO (07:43)
[2024-04-24 08:29] VITALS: O2SAT 92
--- NOTE | 2024-04-24 09:44 | PHA.DC.MR.R ---
Pharmacy [place] Med Reconciliation Pharmacy Service has performed discharge medication reconciliation for this patient. The patient's discharge medication list was reviewed for discrepancies and discrepancies were resolved. Medications at Discharge Home Medications Disability Placmadeleine #1 ea 02/07/23 aspirin 81 mg tablet,delayed release (Adult Low Dose Aspirin) 81 mg PO DAILY heart health 04/18/23 cholecalciferol (vitamin D3) 50 mcg (2,000 unit) capsule 50 mcg PO DAILY vitamin 04/18/23 ferrous sulfate 325 mg (65 mg iron) tablet 325 mg PO DAILY 04/18/23 levocarnitine 330 mg tablet 330 mg PO TID vitamin 04/18/23 doxepin 100 mg capsule 100 mg PO QHS mental health #30 caps 11/28/23 tizanidine 4 mg tablet See Rx Instructions .Route .COMPLEX spasms #120 tabs 11/28/23 duloxetine 60 mg capsule,delayed release 60 mg PO DAILY mental health #90 caps 12/11/23 hyoscyamine sulfate 0.125 mg tablet mg PO 12/11/23 fluticasone fur. 200 mcg-umeclid 62.5 mcg-vilant 25 mcg inhalat.powder (Trelegy Ellipta) 1 inh inhalation DAILY breathing #3 ea 02/12/24 compr.stocking,thigh,short,lrg #24 ea 02/29/24 omeprazole 40 mg capsule,delayed release 40 mg PO DAILY reflux #90 caps 03/04/24 lovastatin 10 mg tablet 10 mg PO QPM cholesterol #90 tabs 03/06/24 nifedipine 30 mg tablet,extended release 30 mg PO DAILY blood pressure #90 tabs 03/06/24 lisinopril 10 mg tablet 10 mg PO DAILY blood pressure #90 tabs 04/16/24 metoprolol tartrate 100 mg tablet 100 mg PO BID blood pressure #90 tabs 04/16/24 levothyroxine 175 mcg tablet 175 mcg PO .bedtime thyroid 04/22/24
[2024-04-24 09:46] VITALS: BP 153/72; PULSE 73; RESP 16; TEMP 35.8; O2SAT 95
[2024-04-24 09:51] VITALS: PULSE 73
[2024-04-24] MEDS: DULoxetine Hcl 60 MG Capsule PO (09:51)
[2024-04-24] MEDS: Metoprolol Tartrate 25 MG Tablet 75 MG PO (09:51)
[2024-04-24] MEDS: NIFEdipine 30 MG Tablet PO (09:52)
[2024-04-24] MEDS: Cholecalciferol (VIT D3) 25 MCG TABLET (1,000 UNITS) 50 MCG PO (09:52)
[2024-04-24] MEDS: Pantoprazole Sodium 40 MG Tablet PO (09:52)
--- NOTE | 2024-04-24 10:14 | CASEMGMT ---
Patient has order for discharge. RN CM in to discuss needs at discharge. Patient denies needs or help at discharge. Patient had no further questions or concerns.
--- NOTE | 2024-04-24 12:21 | PCM.DC.SUM ---
Providers Date of Admission: 04/22/24 Primary Care Physician: Dr. Jennifer Gordon MD Reason For Visit: CHEST PAIN AND KRISTIN. Diagnosis Discharge Diagnosis (1) Chest pain: Status: Acute Code(s): R07.9 - Chest pain, unspecified Qualifiers: Chest pain type: unspecified Qualified Code(s): R07.9 - Chest pain, unspecified (2) Coronary artery disease: Status: Chronic Code(s): I25.10 - Atherosclerotic heart disease of [place] coronary artery without angina pectoris Qualifiers: Coronary Disease-Associated Artery/Lesion type: unspecified vessel or lesion type [place] vs. transplanted heart: [place] heart Associated angina: with stable angina Qualified Code(s): I25.118 - Atherosclerotic heart disease of [place] coronary artery with other forms of angina pectoris (3) CKD (chronic kidney disease): Status: Chronic Code(s): N18.9 - Chronic kidney disease, unspecified Qualifiers: Chronic kidney disease stage: stage 4 (severe) Qualified Code(s): N18.4 - Chronic kidney disease, stage 4 (severe) (4) Abnormal chest x-ray: Status: Acute Code(s): R93.89 - Abnormal findings on diagnostic imaging of other specified body structures (5) Nonsustained ventricular tachycardia: Status: Chronic Code(s): I47.29 - Other ventricular tachycardia (6) Morbid obesity with BMI of 40.0-44.9, adult: Status: Acute Code(s): E66.01 - Morbid (severe) obesity due to excess calories; Z68.41 - Body mass index [BMI] 40.0-44.9, adult Medications at Discharge Home Medications Disability Placard #1 ea 02/07/23 aspirin 81 mg tablet,delayed release (Adult Low Dose Aspirin) 81 mg PO DAILY heart health 04/18/23 cholecalciferol (vitamin D3) 50 mcg (2,000 unit) capsule 50 mcg PO DAILY vitamin 04/18/23 ferrous sulfate 325 mg (65 mg iron) tablet 325 mg PO DAILY 04/18/23 levocarnitine 330 mg tablet 330 mg PO TID vitamin 04/18/23 doxepin 100 mg capsule 100 mg PO QHS mental health #30 caps 11/28/23 tizanidine 4 mg tablet See Rx Instructions .Route .COMPLEX spasms #120 tabs 11/28/23 duloxetine 60 mg capsule,delayed release 60 mg PO DAILY mental health #90 caps 12/11/23 hyoscyamine sulfate 0.125 mg tablet mg PO 12/11/23 fluticasone fur. 200 mcg-umeclid 62.5 mcg-vilant 25 mcg inhalat.powder (Trelegy Ellipta) 1 inh inhalation DAILY breathing #3 ea 02/12/24 compr.stocking,thigh,short,lrg #24 ea 02/29/24 omeprazole 40 mg capsule,delayed release 40 mg PO DAILY reflux #90 caps 03/04/24 lovastatin 10 mg tablet 10 mg PO QPM cholesterol #90 tabs 03/06/24 nifedipine 30 mg tablet,extended release 30 mg PO DAILY blood pressure #90 tabs 03/06/24 lisinopril 10 mg tablet 10 mg PO DAILY blood pressure #90 tabs 04/16/24 metoprolol tartrate 100 mg tablet 100 mg PO BID blood pressure #90 tabs 04/16/24 levothyroxine 175 mcg tablet 175 mcg PO .bedtime thyroid 04/22/24 Hospital Course Operations None Procedures 2-D Echocardiogram and Nuclear stress test Summary of Care Provided Minutes Spent on Discharge: 39 Hospital Course: Per HPI: LENNY LUO, is a 64 F with a past medical history of essential hypertension, hyperlipidemia, history of thyroid cancer; s/p thyroidectomy on levothyroxine, morbid obesity; with BMI of 43.9 this admission, obstructive sleep apnea, history of tobacco abuse with chronic bronchitis; ~1 pack/day times ~20 years (quit 2012), CAD, PAD, CKD; stage IV with baseline creatinine of ~1.8 mg/dL, NANCIE, history of polyclonal gammopathy, history of carnitine palmitoyl transferase II deficiency, polyneuropathy; history of cervical radiculopathy, history of NSVT; followed by Dr. Shine of [facility], history of syncope, depression, chronic diarrhea, GERD, history of hysterectomy, history of rotator cuff repair, history of cataract; s/p extraction and osteoarthritis; with history of low back pain and total knee replacement who presents to [facility] ER complaining of chest pressure and dehydration. Ms. Luo reports her symptoms began approximately 3 days prior to admission with intermittent chest pain that was midsternal, pressure-like, nonradiating and moderate with nothing seeming to make the pain better or worse. She recently had her metoprolol increased a few days ago to 100 mg p.o. twice daily due to her history of NSVT. She is scheduled to see an resident services director soon. Her heart rate was noted to be in the high to mid ~50 bpm range and she had an echocardiogram in April 2023 with LVEF of ~65% and she underwent nuclear stress test in May 2023 that was negative for flow-limiting ischemia. She denies associated fever, chills, nausea, vomiting, recent travel, recent surgery, recent immobilization, prior DVT or PE or known malignancy. In the ER she was noted to have a normal troponin and a nonspecific EKG with intermittent chest pain complicated by laboratory evidence of KRISTIN; in the setting of stage IV CKD with elevated creatinine of 2.4 to mg/dL and a BUN of 53 mg/dL present on admission (up from her baseline of 39 mg/dL less than 2 weeks ago) and she was then admitted to the PCU under observation status for stay that is expected to be less than 2 midnights. Hospital course: 1. Chest pain rule out/CAD/history of SVT/essential HTN/HLD?64-year-old female presented to the hospital with chest pain noted going on for about 3 days prior to admission. Troponins were unremarkable, she did have an echo with an EF of 60% and no diastolic dysfunction. Stress test was also negative for ischemia however she did not feel comfortable going home the day of the stress test and she requested to stay 1 more day. I discussed with her the plan for discharge today she expressed understanding the risk benefits of going home and she would like to go home today. I recommend that she follow-up with her PCP in 3 to 5 days to monitor her renal function as her baseline creatinine is around 1.8-1.9 and she was 2.4 yesterday. Given the heat wave in the likelihood of dehydration she was given some IV fluids to assist. 2. Right upper lobe granulomatous disease, history of carnitine palmitoyl transferase 2 deficiency, history of thyroid cancer status post thyroidectomy hypothyroidism, iron deficiency anemia, anxiety, depression, GERD are all chronic medical conditions which complicate her care. Her home medications were continued where appropriate Physical Exam Narrative General: Alert, Oriented x3, Cooperative, No apparent distress HEENT: Atraumatic, PERRLA, EOMI, Normocephalic Oral: Moist Mucosa Neck: Supple, No JVD Lungs: Diminished, Normal air movement, No rhonchi, No wheeze, No rales Cardiovascular: Regular rate, Regular Rhythm, Normal S1, Normal S2, No murmurs Abdomen: Soft, Non Tender, Non-Distended, No Hepato-splenomegaly Extremities: No edema, Capillary Refill Less than 3 Seconds Skin: No rashes, No breakdown Musculoskeletal: No Tenderness to Palpation of Joints or Extremities Neurological: No focal neurological deficits, Motor Exam 5/5 strength throughout, Sensory exam intact to light touch and pain Psych/Mental Status: Normal Affect, Appropriate Weight / BMI Weight Weight: 263 lb 10.766 oz Body Mass Index (BMI) 43.9 ABG / Lab / Microbiology Data 04/22/24 16:57 04/24/24 06:06 Laboratory: Laboratory Results - last 24 hr 04/24/24 06:06: Sodium 139, Potassium 4.7, Chloride 111 H, Carbon Dioxide 24.0, Anion Gap 4 L, BUN 23 H, Creatinine 1.51 H, Estim Creat Clear Calc 47.46, Est GFR (MDRD) Af Amer 44 L, Est GFR (MDRD) Non-Af 37 L, BUN/Creatinine Ratio 15.2, Glucose 98, Calcium 8.3 L D/C Instructions Discharge Diet: Low fat / Low cholesterol Call your doctor if you observe: Fever of 101 or Higher, Shortness of breath, Dizziness, Fainting spells, Swelling in the ankles, Chest pain and Increased palpitations (irregular heartbeat) Meaningful Use Info Meaningful Use Meaningful Use Diagnoses (Choose all that apply): None applicable Ischemic Stroke Statin Dosing Therapy Reference: STATIN DOSE THERAPY REFERENCE: * Patients > 75 years receive moderate or high dose statin therapy. * Patients 75 years or YOUNGER should receive HIGH intensity statin dose unless contraindicated. You will be required to document reason for non-treatment if statin daily dose does not meet guidelines. HIGH DOSE STATIN THERAPY DAILY Atorvastatin > than or = to 40 mg Rosuvastatin > than or = to 20 mg Amlodipine + Atorvastatin > than or = to 2.5/40 mg Ezetimibe + Simvastatin 10/80 mg Simvastatin 80mg Discharge Plan Admission Admit Date/Time: 04/22/24 19:20 Attending Provider: Arnel Cano Primary Care Provider: Jennifer Gordon Consulting Providers: Oj Deshpande Instructions Additional Instructions / Restrictions: Follow-up with your PCP in 3 to 5 days to monitor your kidney function Discharge Orders/Prescriptions Prescriptions: Continued (DME) Disability Placard See Rx Instructions .Route .MEDSUPPLY Qty: 1 0RF Rx Instructions: Expiration 02/07/2026 tizanidine 4 mg tablet See Rx Instructions .ROUTE .COMPLEX Qty: 120 9RF Rx Instructions: Take 1 tablet orally twice daily and 3 tablets nightly as needed for muscle pain/spasm. doxepin 100 mg capsule 100 mg PO QHS Qty: 30 9RF levocarnitine 330 mg tablet 330 mg PO TID aspirin [Adult Low Dose Aspirin] 81 mg tablet,delayed release (DR/EC) 81 mg PO DAILY cholecalciferol (vitamin D3) 50 mcg (2,000 unit) capsule 50 mcg PO DAILY ferrous sulfate 325 mg (65 mg iron) tablet 325 mg PO DAILY hyoscyamine sulfate 0.125 mg tablet PO duloxetine 60 mg capsule,delayed release(DR/EC) 60 mg PO DAILY Qty: 90 1RF (DME) compr.stocking,thigh,short,lrg Misc See Rx Instructions .Route Qty: 24 0RF Rx Instructions: As directed metoprolol tartrate 100 mg tablet 100 mg PO BID Qty: 90 3RF lisinopril 10 mg tablet 10 mg PO DAILY Qty: 90 3RF levothyroxine 175 mcg tablet 175 mcg PO .bedtime Trelegy Ellipta 200-62.5-25 mcg blister with device 1 inh inhalation DAILY Qty: 3 3RF omeprazole 40 mg capsule,delayed release(DR/EC) 40 mg PO DAILY Qty: 90 1RF lovastatin 10 mg tablet 10 mg PO QPM Qty: 90 1RF nifedipine 30 mg tablet extended release 30 mg PO DAILY Qty: 90 1RF Referrals / Follow Up: Jennifer Gordon MD [Primary Care Provider] - Within 1 Week Disposition Disposition (needs filled in before D/C Order can be placed): Home, Self Care Charges/Coding Visit Charges Inpatient E&M: 11099 Disch Hosp >30min
== END 2024-04-24 07:16 | disposition home or self-care (01) ==
LOC: ED 18:26 → PCU 19:26
PROVIDERS: Physician Assistant; Admitting Provider Internal Medicine; Emergency Provider Emergency Medicine; PCP Internal Medicine; Visit Provider Family Medicine
DX: R07.89 Other chest pain (principal); N18.4 Chronic kidney disease, stage 4 (severe); J96.11 Chronic respiratory failure with hypoxia; J44.9 Chronic obstructive pulmonary disease, unspecified; I47.29 Other ventricular tachycardia; E66.01 Morbid (severe) obesity due to excess calories; Z68.41 Body mass index [BMI] 40.0-44.9, adult; N17.9 Acute kidney failure, unspecified; E89.0 Postprocedural hypothyroidism; E78.5 Hyperlipidemia, unspecified; I12.9 Hypertensive chronic kidney disease with stage 1 through stage 4 chronic kidney disease, or unspecified chronic kidney disease; Z87.891 Personal history of nicotine dependence; E86.0 Dehydration; G47.33 Obstructive sleep apnea (adult) (pediatric); D50.9 Iron deficiency anemia, unspecified; I73.9 Peripheral vascular disease, unspecified; Z79.51 Long term (current) use of inhaled steroids; I25.10 Atherosclerotic heart disease of native coronary artery without angina pectoris; Z79.899 Other long term (current) drug therapy; Z79.890 Hormone replacement therapy; Z99.81 Dependence on supplemental oxygen; R93.89 Abnormal findings on diagnostic imaging of other specified body structures; F32.A Depression, unspecified; F41.9 Anxiety disorder, unspecified
CPT/HCPCS: 36415; 71046; 71250; 78452; 80048; 80061; 84443; 84484; 85025; 93005; 93017; 93306; 94640; 96360; 96361; 96372; 99221; 99285; A9500; J7030; Q9957; A4216; G0378; J2785

== ENCOUNTER → 2024-05-21 | Outpatient (CLI) | payer MEDICARE, MEDICAID, SELFPAY ==
[2024-05-23 17:08] LABS: Endomysial Antibody IgA Negative (Negative); Immunoglobulin A 146 mg/dL (87-352); t-Transglutaminase IgA <2 U/mL (0-3)
== END | disposition home or self-care (01) ==
LOC: MTLAB 15:28
PROVIDERS: PCP Internal Medicine; Referring Provider Internal Medicine Gastroenterology; Visit Provider Internal Medicine Gastroenterology
DX: R19.7 Diarrhea, unspecified (principal)
CPT/HCPCS: 36415; 82784; 83516; 86255

== ENCOUNTER → 2024-05-23 | Outpatient (CLI) | payer MEDICARE, MEDICAID, SELFPAY ==
[2024-05-29 14:10] LABS: Pancreatic Elastase, Fecal > 800 (>200)
[2024-05-31 22:07] LABS: Fats, Neutral Normal (.); Fats, Total Normal (.)
== END | disposition home or self-care (01) ==
LOC: LABSPEC 14:10
PROVIDERS: PCP Internal Medicine; Referring Provider Internal Medicine Gastroenterology; Visit Provider Internal Medicine Gastroenterology
DX: R19.7 Diarrhea, unspecified (principal)
CPT/HCPCS: 82653; 82705

== ENCOUNTER 2024-06-10 19:08 | Emergency (ER) | payer MEDICARE, MEDICAID, SELFPAY ==
[2024-06-10] VITALS (7 sets, daily range): BP systolic 133–186; BP diastolic 70–107; PULSE 68–97; RESP 16–18; TEMP 36.4–36.9; O2SAT 93–98; BMI 39.6
--- NOTE | 2024-06-10 19:41 | EX.ED.DYSGE1 ---
HPI History of Present Illness Chief Complaint: General Illness Detail of Chief Complaint: Generalized abdominal pain, constipation and muscle aches Informant: patient Onset/Context/Timing Onset: Yesterday (Generalized muscle aches) and Days (Problems with constipation for days) Context: Sudden Onset Timing: Continuous and Waxes and wanes Quality: Colicky abdominal pain and myalgias Location: Extremities and abdomen Current Severity: Mild Maximum Severity: Moderate Worsened by: Not able to have a bowel movement Relieved by: Nothing Associated Symptoms Associated Symptoms: Thirst and dry mouth Narrative Narrative: Patient is a 64-year-old woman who has CPT 2 deficiency, 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 Skeletal muscles are affected in particular and episodes can be characterized by rhabdomyolysis during episodes of fasting, prolong exertion or intercurrent illness. This presents with muscle pain and dark urine. This may lead to kidney failure. Recommendation by the genetic genomic medicine specialist at [facility] is to obtain a BMP and CPK. If renal function is normal she can be managed as an outpatient if renal function is abnormal she will need admission for IV hydration. She also complains of generalized abdominal pain. She had 2 hard small stool balls yesterday that she passed and 2 small hard balls of stool day before. Prior that she has not gone for some time. She feels bloated and distended. She does report nausea without vomiting. She does complain of thirst. She also endorses dry mouth. She does endorse aches in her arms and legs and is concerned for possible flare due to CPT 2 deficiency. She denies dark-colored urine. Prior similar symptoms: No Recent Illness/Hospitalization: No [facility] Medical History Anxiety Depression Osteoporosis Smoker On home oxygen therapy COPD (chronic obstructive pulmonary disease) Hypertension Hx of ventricular tachycardia COPD (chronic obstructive pulmonary disease) Chronic hypoxemic respiratory failure Polyclonal gammopathy Bence Davila protein present in urine Obesity Nonsustained ventricular tachycardia Coronary artery disease Syncope Palpitations Thyroid cancer Syncope and collapse Essential hypertension Fatigue Cervical radiculopathy Smoking greater than 30 pack years Hypoxia Chronic diarrhea Recurrent falls Fatty liver FELISA (obstructive sleep apnea) CKD (chronic kidney disease) stage 4, GFR 15-29 ml/min Acquired hypothyroidism History of vitamin D deficiency Peripheral arterial disease Low back pain Vertigo Polyneuropathy Insomnia Myalgia Neck pain Carnitine palmitoyltransferase II deficiency Vision problems Thyroid cancer GERD (gastroesophageal reflux disease) Osteoarthritis Hypothyroid Neuropathy Kidney disease Hypertension History of emotional problems Chronic bronchitis Home Medications ?Medication ?Instructions ?Recorded ?Last Taken ?Type Disability Placmadeleine #1 ea 02/07/23 Unknown Rx aspirin 81 mg tablet,delayed 81 mg PO DAILY heart health 04/18/23 Unknown History release (Adult Low Dose Aspirin) cholecalciferol (vitamin D3) 50 50 mcg PO DAILY vitamin 04/18/23 Unknown History mcg (2,000 unit) capsule ferrous sulfate 325 mg (65 mg 325 mg PO DAILY 04/18/23 Unknown History iron) tablet levocarnitine 330 mg tablet 330 mg PO TID vitamin 04/18/23 Unknown History doxepin 100 mg capsule 100 mg PO QHS mental health #30 11/28/23 Unknown Rx caps tizanidine 4 mg tablet See Rx Instructions .Route 11/28/23 Unknown Rx .COMPLEX spasms #120 tabs hyoscyamine sulfate 0.125 mg tablet mg PO 12/11/23 Unknown History fluticasone fur. 200 mcg-umeclid 1 inh inhalation DAILY breathing 02/12/24 Unknown Rx 62.5 mcg-vilant 25 mcg #3 ea inhalat.powder (Trelegy Ellipta) compr.stocking,thigh,short,lrg #24 ea 02/29/24 Unknown Rx lovastatin 10 mg tablet 10 mg PO QPM cholesterol #90 tabs 03/06/24 Unknown Rx lisinopril 10 mg tablet 10 mg PO DAILY blood pressure #90 04/16/24 Unknown Rx tabs omeprazole 40 mg capsule,delayed 40 mg PO DAILY #90 caps 05/28/24 Unknown Rx release duloxetine 60 mg capsule,delayed 60 mg PO DAILY mental health #90 06/03/24 Unknown Rx release caps metoprolol tartrate 100 mg tablet 100 mg PO BID blood pressure #180 06/06/24 Unknown Rx tabs nifedipine 30 mg tablet,extended 30 mg PO DAILY blood pressure #90 06/06/24 Unknown Rx release tabs levothyroxine 175 mcg tablet 175 mcg PO DAILY thyroid 06/10/24 Unknown History Allergy/AdvReac Type Severity Reaction Status Date / Time Penicillins Allergy Unknown Unknown Verified 06/10/24 19:10 Family History Mother CVA (cerebral vascular accident) Heart disease Arthritis Lupus Father Myocardial infarction Hypertension Brother Colon cancer Brother Colon cancer Brother Cancer stomach Sister Seizures Grandfather Myocardial infarction Grandmother Myocardial infarction Surgical History History of cholecystectomy Cataract extraction status History of surgical procedure H/O thyroidectomy S/P cholecystectomy History of surgical procedure H/O wrist surgery History of repair of rotator cuff History of hysterectomy Hx of total knee replacement Social History household members: none housing: apartment current occupational status: unemployed Smoking Status: Former smoker quit date: 07/10/13 pack-years: 20 Tobacco: How many years used: 20 Electronic Cigarette Use: not used second hand exposure: No alcohol intake: never substance use type: marijuana and other details: THC gummy caffeine: Yes Type: coffee Number of servings: 2 what type of physical activity do you participate in: none seatbelt use: always do you feel safe at home: Yes ROS ROS ED Constitutional Constitutional ED: Denies chills, fever(s) or subjective Eyes Eyes: Denies blurry vision, change in vision or diplopia ENT ENT ED: Denies ear pain, rhinorrhea or sore throat Cardiovascular Cardiovascular: Denies chest pain, palpitations or racing heartbeat Respiratory/Chest Respiratory/Chest: Denies cough, dyspnea or dyspnea on exertion Gastrointestinal Gastrointestinal: Reports abdominal pain, constipation and nausea; Denies diarrhea, melena or vomiting Genitourinary Genitourinary ED: Denies dysuria, hematuria or urinary frequency Musculoskeletal Musculoskeletal: Reports myalgias; Denies arthralgias, back pain or neck pain Integumentary Denies rash Neurologic Neurologic: Reports weakness; Denies headache(s) Endocrine Endocrinology: Denies cold intolerance or heat intolerance Hematologic/Lymphatic Hematologic/Lymphatic: Reports systems reviewed and no addt'l complaints, except as documented EXAM Physical Exam Const Vital Signs: 06/10/24 19:10 06/10/24 19:11 06/10/24 19:20 Temperature 98 F 97.6 F L Temperature Source Temporal Temporal Pulse Rate 84 73 Respiratory Rate 16 16 Respiratory Effort Normal Non-Labored Respiratory Pattern Normal Blood Pressure 163/97 H 153/84 H Blood Pressure Mean 119 107 Pulse Ox 97 95 Oxygen Delivery Method Room Air Room Air 06/10/24 20:11 06/10/24 21:05 06/10/24 21:10 Temperature 97.6 F L 97.6 F L Temperature Source Temporal Temporal Pulse Rate 71 68 70 Respiratory Rate 18 18 16 Respiratory Effort Respiratory Pattern Blood Pressure 133/70 H 161/80 H 186/86 H Blood Pressure Mean 91 107 119 Pulse Ox 96 96 98 Oxygen Delivery Method Room Air Room Air Room Air 06/10/24 22:19 Temperature Temperature Source Pulse Rate 90 Respiratory Rate 16 Respiratory Effort Respiratory Pattern Blood Pressure 159/107 H Blood Pressure Mean 124 Pulse Ox 93 Oxygen Delivery Method Room Air Positive well nourished and well developed Constitutional Narrative: Patient appears uncomfortable. General Appearance ED: well developed; Negative for cyanotic, diaphoretic or pallor HEENT Reports dry mucous membranes HEENT Narrative: Head is atraumatic and normocephalic. Ears normal. Posterior pharynx is normal. Mouth ED: Yes dry mucous membranes Mouth: dry mucous membranes Eyes PERRL and EOMs intact bilaterally General Eye ED: Negative for pale conjunctiva or scleral icterus Neck no lymphadenopathy, supple and no JVD Chest Wall inspection of chest normal and palpation of chest normal Resp normal respiratory effort and clear to auscultation bilaterally Cardio regular rate, regular rhythm, S1 normal heart sound, S2 normal heart sound and no murmurs GI no masses; Negative for non-tender, non-distended or hepatosplenomegaly Inspection: abdominal distention Auscultation: hypoactive bowel sounds Palpation: soft and tender other (Diffusely greatest left lower quadrant. There is a history of diverticulosis.); Negative for guarding, splenomegaly or rebound tenderness present Back/Spine no CVA tenderness Extremity normal to inspection General Extremety ED: Negative for edema or tenderness General Extremity: Negative for edema Neuro oriented x3, CN's II-XII intact bilaterally and no sensory deficits noted Sensorium / Orientation: alert Psych mental status grossly normal Skin no rashes or lesions noted and no wounds General Skin Exam: Negative for jaundice or pallor MDM MDM MDM Narrative Medical decision making narrative: Because of her history of CPT 2 deficiency will obtain BMP and CPK. Because of the abdominal distention with poor stool output rectal was done. There was no stool in the rectal vault. There is no evidence of prolapse. There is no fissures, fistulas or hemorrhoids noted. Will obtain abdominal series to see if there is increased fecal matter or obstructive pattern. History is not suggestive of obstructive pattern. Clinically she is dehydrated. 1 L of normal saline was ordered wide open. Lab Data Attestation: I reviewed the patient's lab results. Lab results narrative: White count slight elevated 13.6. There is a mild shift. H&H is normal. Electrolyte panel reveals a BUN of 36 and a creatinine of 1.98. BUN and creatinine are 36 and 1.8. GFR is 27. Prior GFR was 37. Labs: Laboratory Results - last 24 hr 06/10/24 06/10/24 19:49 20:41 WBC 13.6 H RBC 5.17 Hgb 13.4 Hct 44.0 MCV 85.1 MCH 25.9 L MCHC 30.5 L RDW Std Deviation 47.8 H RDW Coeff of Esvin 15.4 H Plt Count 389 MPV 10.0 Immature Gran % (Auto) 0.300 Neut % (Auto) 71.1 H Lymph % (Auto) 19.1 [place] % (Auto) 6.4 Eos % (Auto) 2.5 Baso % (Auto) 0.6 Absolute Neuts (auto) 9.6 H Absolute Lymphs (auto) 2.59 Nucleated RBC % 0 Sodium Cancelled 137 Potassium Cancelled 4.9 Chloride Cancelled 103 Carbon Dioxide Cancelled 30.0 Anion Gap Cancelled 4 L BUN Cancelled 36 H Creatinine Cancelled 1.98 H Estim Creat Clear Calc Cancelled 34.15 Est GFR (MDRD) Af Amer Cancelled 32 L Est GFR (MDRD) Non-Af Cancelled 27 L BUN/Creatinine Ratio Cancelled 18.2 Glucose Cancelled 100 Calcium Cancelled 8.6 Total Creatine Kinase Cancelled 2181 H Radiography Chest X-Ray - ED: Read by ED Physician (Abdominal series reveals increased fecal stasis. There is massive gas pattern. Cardiac silhouette and size normal. Lung parenchyma normal. Hilum is unremarkable. Osseous structures unremarkable. Surgical clips for cholecystectomy noted. This independent reviewed interpreted by me.) Diagnostic Testing: Clinical Impression(s) from Imaging Studies Acute Abdomen Series 06/10/24 19:55 IMPRESSION: 1. Moderate colonic stool retention. Nonspecific small bowel gas pattern without overt evidence of bowel obstruction. 2. Minimal scarring or atelectasis in the lingula. Otherwise, no acute pathology in the chest. Electronically Signed: Musa Diaz, at 20:16 EDT , Discharge Plan Triage Chief Complaint: General Illness ED Provider: Ramakrishna Maher Dx/Rx/DC Orders Clinical Impression: Paroxysmal rhabdomyolysis, Carnitine palmitoyltransferase II deficiency, Peripheral arterial disease, CKD (chronic kidney disease) stage 4, GFR 15-29 ml/min, FELISA (obstructive sleep apnea), Essential hypertension, Coronary artery disease, Acute dehydration, Acute constipation, Acute generalized abdominal pain Instructions: ED Dehydration (Adult), ED Rhabdomyolysis Prescriptions: No Action (DME) Disability Placard See Rx Instructions .Route .MEDSUPPLY Qty: 1 0RF Rx Instructions: Expiration 02/07/2026 tizanidine 4 mg tablet See Rx Instructions .ROUTE .COMPLEX Qty: 120 9RF Rx Instructions: Take 1 tablet orally twice daily and 3 tablets nightly as needed for muscle pain/spasm. doxepin 100 mg capsule 100 mg PO QHS Qty: 30 9RF levocarnitine 330 mg tablet 330 mg PO TID aspirin [Adult Low Dose Aspirin] 81 mg tablet,delayed release (DR/EC) 81 mg PO DAILY cholecalciferol (vitamin D3) 50 mcg (2,000 unit) capsule 50 mcg PO DAILY ferrous sulfate 325 mg (65 mg iron) tablet 325 mg PO DAILY hyoscyamine sulfate 0.125 mg tablet PO (DME) compr.stocking,thigh,short,lrg Misc See Rx Instructions .Route Qty: 24 0RF Rx Instructions: As directed lisinopril 10 mg tablet 10 mg PO DAILY Qty: 90 3RF levothyroxine 175 mcg tablet 175 mcg PO DAILY Trelegy Ellipta 200-62.5-25 mcg blister with device 1 inh inhalation DAILY Qty: 3 3RF lovastatin 10 mg tablet 10 mg PO QPM Qty: 90 1RF omeprazole 40 mg capsule,delayed release(DR/EC) 40 mg PO DAILY Qty: 90 1RF duloxetine 60 mg capsule,delayed release(DR/EC) 60 mg PO DAILY Qty: 90 1RF metoprolol tartrate 100 mg tablet 100 mg PO BID Qty: 180 3RF Patient Comments: ONLY TAKES 75 MG I BREAK THE TABLETS UP AT HOME nifedipine 30 mg tablet extended release 30 mg PO DAILY Qty: 90 1RF Primary Care Provider: Jennifer Gordon Referrals: Jennifer Gordon MD [Primary Care Provider] - As soon as possible Activity Restrictions/Additional Instructions: Need to follow-up with your physician, Dr. Gordon for daily CPKs until it normalized Make sure you drink plenty of fluids MiraLAX 3 times a day for 1 week. Then 2 times a day for 1 week; then once a day Print Language: British Disposition Disposition: Home, Self Care
[2024-06-10] MEDS: 0.9% Normal Saline (1000mL) 1,000 ML 1000 ML IV (19:48)
--- NOTE | 2024-06-10 19:55 | RAD_ITS ---
EXAM: XR ABDOMEN, 2 VIEWS AND XR CHEST, 1 VIEW CLINICAL INDICATION: Abdominal pain, distention and constipation TECHNIQUE: Frontal view of the chest, frontal view of the abdomen/pelvis and upright or decubitus view of the abdomen. COMPARISON: CT chest, 04/22/2024 FINDINGS: CHEST: LUNGS AND PLEURAL SPACES: Granulomas in the right upper lobe. Minimal scarring or atelectasis in the lingula. No pneumothorax. No effusion. HEART: No significant abnormality. Cardiac silhouette not enlarged. MEDIASTINUM: Central airways and mediastinal contour are unremarkable. ABDOMEN: INTRAPERITONEAL SPACE: No free air. GASTROINTESTINAL TRACT: Moderate colonic stool retention. Nonspecific small bowel gas pattern without overt evidence of bowel obstruction. ORGANS: Status post cholecystectomy. No organomegaly. No abnormal calcifications. TUBES, LINES AND DEVICES: None. BONES/JOINTS: Postoperative changes of the right shoulder. Degenerative changes of the spine with apex left lumbar curvature. SOFT TISSUES: No significant findings. VASCULATURE: Atherosclerosis. RAD/Acute Abdomen Inc Chest IMPRESSION: 1. Moderate colonic stool retention. Nonspecific small bowel gas pattern without overt evidence of bowel obstruction. 2. Minimal scarring or atelectasis in the lingula. Otherwise, no acute pathology in the chest. Electronically Signed: Musa Diaz DO at 20:16 EDT ,
[2024-06-10 20:15] LABS: Absolute Lymphocyte Count 2.59 X10^3/uL (0.83-4.51); Absolute Neutrophil Count 9.6 X10^3/uL (2.0-7.7); Basophil# 0.08 X10^3/uL; Basophil% 0.6 % (0-1); Eosinophil# 0.34 X10^3/uL; Eosinophils% 2.5 % (0-5); Hemoglobin 13.4 g/dL (12.0-15.0); Lymphocyte # 2.59 X10^3/ul (0.83-4.51); Lymphocyte % 19.1 % (19-41); Mean Corp Hgb Conc 30.5 g/dL (32-36); Mean Corpuscular Hgb 25.9 pg (27.0-32.0); Mean Corpuscular Volume 85.1 fL (81-99); Monocyte# 0.87 X10^3/uL; Monocyte% 6.4 % (0-10); NRBC Flagged by Analyzer 0 % (0-5); Neutrophil # 9.64 X10^3/uL (2.7-7.7); Neutrophil % 71.1 % (47-70); Platelet Count 389 K/mm3 (150-450); RBC Distribution Width CV 15.4 % (11.6-14.6); RBC Distribution Width SD 47.8 fl (35.1-43.9); Red Blood Count 5.17 M/mm3 (4.2-5.4); White Blood Count 13.6 K/mm3 (4.4-11.0)
[2024-06-10 21:21] LABS: Anion Gap 4 (5-15); BUN 36 mg/dL (7-18); BUN/Creat Ratio 18.2 RATIO (10-20); Calcium,Total 8.6 mg/dL (8.5-10.1); Chloride 103 mmol/L (98-107); Creatinine, Serum 1.98 mg/dL (0.55-1.02); EST Glomerular Filtration Rate 27 mL/min (>60); Est Glom Filt Rate - Afr Amer 32 mL/min (>60); Estimated Creatinine Clearance 34.15 ml/min; Glucose 100 mg/dL (74-106); Potassium 4.9 mmol/L (3.5-5.1); Sodium Level 137 mmol/L (136-145)
[2024-06-10 21:23] LABS: CPK Total, Creatine Kinase 2181 U/L (26-192)
== END 2024-06-10 23:05 | disposition home or self-care (01) ==
PROVIDERS: Emergency Provider Emergency Medicine; PCP Internal Medicine; Visit Provider Emergency Medicine
DX: M62.82 Rhabdomyolysis (principal); N18.4 Chronic kidney disease, stage 4 (severe); J44.9 Chronic obstructive pulmonary disease, unspecified; E86.0 Dehydration; G47.33 Obstructive sleep apnea (adult) (pediatric); I12.9 Hypertensive chronic kidney disease with stage 1 through stage 4 chronic kidney disease, or unspecified chronic kidney disease; Z87.891 Personal history of nicotine dependence; K59.00 Constipation, unspecified; Z80.0 Family history of malignant neoplasm of digestive organs; I73.9 Peripheral vascular disease, unspecified; I25.10 Atherosclerotic heart disease of native coronary artery without angina pectoris; E71.314 Muscle carnitine palmitoyltransferase deficiency; Z82.3 Family history of stroke; R14.0 Abdominal distension (gaseous); R10.84 Generalized abdominal pain; Z99.81 Dependence on supplemental oxygen; R29.6 Repeated falls; E03.9 Hypothyroidism, unspecified; Z90.49 Acquired absence of other specified parts of digestive tract; F12.90 Cannabis use, unspecified, uncomplicated
CPT/HCPCS: 96360; 99283; 74022; 80048; 82550; 85025; J7030; A4216

== ENCOUNTER 2024-06-12 17:30 | Inpatient (IN) | payer MEDICARE, MEDICAID, SELFPAY ==
[2024-06-12 17:31] VITALS: BP 118/91; PULSE 76; RESP 18; TEMP 35.7; O2SAT 97
--- NOTE | 2024-06-12 17:57 | EDS_ITS ---
HPI History of Present Illness Chief Complaint: Weakness Informant: patient and family Narrative Narrative: Patient has a history of carnitine palmitoyl transferase 2 deficiency, in which case she frequently has attacks where she is unable to metabolize glycogen and she preferentially uses muscle for energy, causing rhabdomyolysis. She states she had some constipation recently which caused her to be dehydrated and she thinks that caused a flareup that started several days ago. Often times she needs IV fluids to take care of the rhabdomyolysis and then her pain improves. Pain she is having is diffuse in all of her muscles throughout her body. No chest or abdominal symptoms, but she states she has been drinking plenty of fluid despite being in the ER and getting a bag of fluid a couple days ago, she is not urinating correctly; she states she is not going enough. It is not dark or bloody. She denies any fevers or chills. She states the pain in her muscles is present along with the fact that they are locking up and she is unable to perform ADLs and is asking to be admitted because at least of that. She comes with a letter from her doctor at [facility] who states even if she has levels which often are high between 10-20,000 CPK, she can be managed as an outpatient if her renal function is normal. [facility] Medical History Anxiety Depression Osteoporosis Smoker On home oxygen therapy COPD (chronic obstructive pulmonary disease) Hypertension Hx of ventricular tachycardia COPD (chronic obstructive pulmonary disease) Chronic hypoxemic respiratory failure Polyclonal gammopathy Bence Davila protein present in urine Obesity Nonsustained ventricular tachycardia Coronary artery disease Syncope Palpitations Thyroid cancer Syncope and collapse Essential hypertension Fatigue Cervical radiculopathy Smoking greater than 30 pack years Hypoxia Chronic diarrhea Recurrent falls Fatty liver FELISA (obstructive sleep apnea) CKD (chronic kidney disease) stage 4, GFR 15-29 ml/min Acquired hypothyroidism History of vitamin D deficiency Peripheral arterial disease Low back pain Vertigo Polyneuropathy Insomnia Myalgia Neck pain Carnitine palmitoyltransferase II deficiency Vision problems Thyroid cancer GERD (gastroesophageal reflux disease) Osteoarthritis Hypothyroid Neuropathy Kidney disease Hypertension History of emotional problems Chronic bronchitis Home Medications ?Medication ?Instructions ?Recorded ?Last Taken ?Type Disability Placmadeleine #1 ea 02/07/23 Unknown Rx aspirin 81 mg tablet,delayed 81 mg PO DAILY heart [facility] 04/18/23 06/12/24 History release (Adult Low Dose Aspirin) cholecalciferol (vitamin D3) 50 50 mcg PO DAILY vitamin 04/18/23 06/12/24 History mcg (2,000 unit) capsule ferrous sulfate 325 mg (65 mg 325 mg PO DAILY 04/18/23 06/12/24 History iron) tablet levocarnitine 330 mg tablet 330 mg PO TID vitamin 04/18/23 06/12/24 History doxepin 100 mg capsule 100 mg PO QHS mental health #30 11/28/23 06/11/24 Rx caps tizanidine 4 mg tablet See Rx Instructions .Route 11/28/23 06/11/24 Rx .COMPLEX spasms #120 tabs hyoscyamine sulfate 0.125 mg tablet 0.125 mg PO 4X/DAY 12/11/23 Unknown History fluticasone fur. 200 mcg-umeclid 1 inh inhalation DAILY breathing 02/12/24 06/12/24 Rx 62.5 mcg-vilant 25 mcg #3 ea inhalat.powder (Trelegy Ellipta) compr.stocking,thigh,short,lrg #24 ea 02/29/24 Unknown Rx lovastatin 10 mg tablet 10 mg PO QPM cholesterol #90 tabs 03/06/24 06/11/24 Rx lisinopril 10 mg tablet 10 mg PO DAILY blood pressure #90 04/16/24 06/12/24 Rx tabs omeprazole 40 mg capsule,delayed 40 mg PO DAILY #90 caps 05/28/24 06/12/24 Rx release duloxetine 60 mg capsule,delayed 60 mg PO DAILY mental health #90 06/03/24 06/12/24 Rx release caps metoprolol tartrate 100 mg tablet 100 mg PO BID blood pressure #180 06/06/24 06/12/24 Rx tabs nifedipine 30 mg tablet,extended 30 mg PO DAILY blood pressure #90 06/06/24 06/12/24 Rx release tabs levothyroxine 175 mcg tablet 175 mcg PO DAILY thyroid 06/10/24 06/11/24 History triheptanoin 8.3 kcal/mL oral 166 kcal PO BID 06/12/24 06/12/24 History liquid (Dojolvi) Allergy/AdvReac Type Severity Reaction Status Date / Time Penicillins Allergy Unknown Unknown Verified 06/12/24 17:31 Family History Mother CVA (cerebral vascular accident) Heart disease Arthritis Lupus Father Myocardial infarction Hypertension Brother Colon cancer Brother Colon cancer Brother Cancer stomach Sister Seizures Grandfather Myocardial infarction Grandmother Myocardial infarction Surgical History History of cholecystectomy Cataract extraction status History of surgical procedure H/O thyroidectomy S/P cholecystectomy History of surgical procedure H/O wrist surgery History of repair of rotator cuff History of hysterectomy Hx of total knee replacement Social History household members: none housing: apartment current occupational status: unemployed Smoking Status: Former smoker quit date: 07/10/13 pack-years: 20 Tobacco: How many years used: 20 Electronic Cigarette Use: not used second hand exposure: No alcohol intake: never substance use type: marijuana and other details: THC gummy caffeine: Yes Type: coffee Number of servings: 2 what type of physical activity do you participate in: none seatbelt use: always do you feel safe at home: Yes ROS ROS ED Constitutional Constitutional ED: Reports malaise; Denies chills or fever(s) Eyes Eyes: Denies change in vision or diplopia ENT ENT ED: Denies rhinorrhea or sore throat Cardiovascular Cardiovascular: Denies chest pain or palpitations Respiratory/Chest Respiratory/Chest: Denies cough or dyspnea Gastrointestinal Gastrointestinal: Reports diarrhea and other Details: Constipation resolved now having some mild diarrhea no blood ; Denies abdominal pain, nausea or vomiting Genitourinary Genitourinary ED: Reports as per HPI and other Details: Decreased urine output ; Denies dysuria or hematuria Musculoskeletal Musculoskeletal: Reports myalgias; Denies back pain or neck pain Integumentary Denies abscess or rash Neurologic Neurologic: Denies headache(s), paresthesias or weakness Psychiatric Psychiatric: Denies suicidal thoughts EXAM Physical Exam Const Vital Signs: 06/12/24 17:31 06/12/24 17:50 06/12/24 19:31 Temperature 96.3 F L Temperature Source Temporal Pulse Rate 76 74 Respiratory Rate 18 19 H Respiratory Effort Normal Non-Labored Respiratory Pattern Normal Blood Pressure 118/91 H 190/92 H Blood Pressure Mean 100 124 Pulse Ox 97 97 Oxygen Delivery Method Room Air Room Air Positive well nourished, well developed and obese General Appearance ED: well developed and NAD Nutritional Appearance: obese HEENT Reports moist mucous membranes normocephalic and atraumatic Eyes PERRL and EOMs intact bilaterally Neck full ROM and supple Resp normal respiratory effort and clear to auscultation bilaterally Cardio regular rate, regular rhythm and no murmurs Rate: Negative for tachycardic GI non-tender and non-distended Auscultation: normoactive bowel sounds Palpation: soft Back/Spine no CVA tenderness General Back: other FROM Extremity normal to inspection General Extremety ED: Negative for edema, pulses abnormal or tenderness General Extremity: Negative for edema or pulses abnormal Neuro oriented x3, CN's II-XII intact bilaterally and no sensory deficits noted Sensorium / Orientation: awake and alert Motor Exam: strength 5/5 throughout Psych mental status grossly normal Skin no rashes or lesions noted and no wounds MDM MDM MDM Narrative Medical decision making narrative: I repeated her labs. Her renal function appeared worse than her prior 1 when she was here couple days ago, although she has been higher than that in the past; today it is worse, from 1.98 to 2.35. Her BUN is also increased, as did her CPK which is now 13,000. All this despite her drinking lots of fluids. She also has mild hyperkalemia presumably as result, but it is very mildly elevated at 5.2. I did an EKG confirming no signs of hyperkalemia, so no emergent treatment for that is indicated except for the IV fluids which will probably fix all of it with time. Discussed with hospitalist for admission will continue IV fluids. Lab Data Attestation: I reviewed the patient's lab results. Labs: Laboratory Results - last 24 hr 06/12/24 06/12/24 06/12/24 18:13 19:12 20:00 WBC 9.9 RBC 5.11 Hgb 13.3 Hct 43.2 MCV 84.5 MCH 26.0 L MCHC 30.8 L RDW Std Deviation 46.7 H RDW Coeff of Esvin 15.2 H Plt Count 357 MPV 10.1 Immature Gran % (Auto) 0.200 Neut % (Auto) 69.9 Lymph % (Auto) 20.2 Ceiba % (Auto) 6.4 Eos % (Auto) 2.6 Baso % (Auto) 0.7 Absolute Neuts (auto) 6.9 Absolute Lymphs (auto) 2.00 Nucleated RBC % 0 Sodium 134 L Potassium 5.2 H Chloride 107 Carbon Dioxide 23.0 Anion Gap 4 L BUN 40 H Creatinine 2.35 H Est GFR (MDRD) Af Amer 27 L Est GFR (MDRD) Non-Af 22 L BUN/Creatinine Ratio 17.0 Glucose 127 H Calcium 9.0 Total Creatine Kinase Cancelled 37054 H Urine Color Yellow Urine Clarity Clear Urine pH 6.0 Ur Specific [place] 1.010 Urine Protein 30 H Urine Glucose (UA) Normal Urine Ketones Negative Urine Occult Blood 250 H Urine Nitrite Negative Urine Bilirubin Negative Urine Urobilinogen Normal Ur Leukocyte Esterase 25 H Urine RBC 0-5 SEEN Urine WBC 0-5 SEEN Ur Squamous Epith Cells 0 SEEN Urine Bacteria 1+ Urine Mucus 0 SEEN Rhythm Strip Rhythm Strip: Sinus Rhythm Rate: 70 Ectopy: None EKG Initial EKG: Attestation: I personally reviewed and interpreted this EKG as follows: Interpretation: Sinus Rhythm and No Acute Injury Pattern Comments: Normal EKG. No signs of hyperkalemia. Management Discussion w/another healthcare provider: Hospitalist Discharge Plan Dx/Rx/DC Orders Clinical Impression: Acute renal failure due to rhabdomyolysis, Carnitine palmitoyltransferase II deficiency, CKD (chronic kidney disease) stage 4, GFR 15-29 ml/min, Paroxysmal rhabdomyolysis Disposition Disposition: [facility]
[2024-06-12] MEDS: 0.9% Normal Saline (1000mL) 1,000 ML 999 ML IV ×2 (18:10→20:47)
[2024-06-12 18:20] LABS: Absolute Neutrophil Count 6.9 X10^3/uL (2.0-7.7); Basophil# 0.07 X10^3/uL; Basophil% 0.7 % (0-1); Eosinophil# 0.26 X10^3/uL; Eosinophils% 2.6 % (0-5); Hematocrit 43.2 % (37-47); Hemoglobin 13.3 g/dL (12.0-15.0); Lymphocyte % 20.2 % (19-41); Mean Corp Hgb Conc 30.8 g/dL (32-36); Mean Corpuscular Volume 84.5 fL (81-99); Mean Platelet Vol. 10.1 fl (6.2-12.0); Monocyte# 0.63 X10^3/uL; Monocyte% 6.4 % (0-10); NRBC Flagged by Analyzer 0 % (0-5); Neutrophil # 6.94 X10^3/uL (2.7-7.7); Neutrophil % 69.9 % (47-70); Platelet Count 357 K/mm3 (150-450); RBC Distribution Width CV 15.2 % (11.6-14.6); RBC Distribution Width SD 46.7 fl (35.1-43.9); Red Blood Count 5.11 M/mm3 (4.2-5.4); White Blood Count 9.9 K/mm3 (4.4-11.0)
[2024-06-12 19:05] LABS: Anion Gap 4 (5-15); BUN 40 mg/dL (7-18); Chloride 107 mmol/L (98-107); Creatinine, Serum 2.35 mg/dL (0.55-1.02); EST Glomerular Filtration Rate 22 mL/min (>60); Est Glom Filt Rate - Afr Amer 27 mL/min (>60); Glucose 127 mg/dL (74-106); Potassium 5.2 mmol/L (3.5-5.1); Sodium Level 134 mmol/L (136-145)
--- NOTE | 2024-06-12 19:27 | EKG12_ITS ---
Test Reason : WEAKNESS Blood Pressure : / mmHG Vent. Rate : 069 BPM Atrial Rate : 069 BPM P-R Int : 146 ms QRS Dur : 098 ms QT Int : 410 ms P-R-T Axes : 053 022 074 degrees QTc Int : 439 ms Normal sinus rhythm Normal ECG Confirmed by JACKIE HUNTER, DEREK ([id number]), visual effects editor NORAH GOTTI ([id number]) on 06/17/2024 8:42:13 AM Referred By: Confirmed By:NATHANIEL MEJIA MD
[2024-06-12 19:31] VITALS: BP 190/92; PULSE 74; RESP 19; O2SAT 97
[2024-06-12 20:06] LABS: CPK Total, Creatine Kinase 13225 U/L (26-192)
[2024-06-12 20:15] LABS: Color, Urine Yellow (Yellow); Glucose, Dipstick Normal (Normal); Ketone-Dipstick Negative (Negative); Leukocyte Esterase-Dipstick 25 /ul (Negative); Mucous, Urine 0 SEEN /hpf (<or=2+); Nitrite-Dipstick Negative (Negative); Occult Blood-Urine 250 /ul (Negative); Protein-Dipstick 30 mg/dl (Negative); Squamous Epithelial Cells - UA 0 SEEN /hpf (5-10); Urine Bilirubin Dipstick Negative (Negative); Urine Clarity Clear (Clear); Urine Urobilinogen Normal (Normal)
[2024-06-12 20:33] LABS: Bacteria 1+ /hpf (None Seen); Red Blood Cells-Urine 0-5 SEEN /hpf (0-5); White Blood Cells 0-5 SEEN /hpf (0-5)
--- NOTE | 2024-06-12 20:39 | PCM.HP.STD ---
HPI - General General Date of Admission: 06/12/24 Date of Service: 06/12/24 Chief Complaint: Muscle pain, dehydration, concern rhabdomyolysis. 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 Workup in the ED included T96.3, heart rate 76, BP 118/91, respiratory rate 18, 97% room air, CBC with WBC 9.9, hemoglobin 13.3, MCV 84.5, platelet 357 without marked shift, BMP with sodium 134, potassium 5.2, BUN/creatinine 40/2.35, GFR 22, glucose 127, total creatinine kinase 36676. In the ED patient missed her 1 L normal saline. [facility] Medical History Anxiety Depression Osteoporosis Smoker On home oxygen therapy COPD (chronic obstructive pulmonary disease) Hypertension Hx of ventricular tachycardia COPD (chronic obstructive pulmonary disease) Chronic hypoxemic respiratory failure Polyclonal gammopathy Bence Davila protein present in urine Obesity Nonsustained ventricular tachycardia Coronary artery disease Syncope Palpitations Thyroid cancer Syncope and collapse Essential hypertension Fatigue Cervical radiculopathy Smoking greater than 30 pack years Hypoxia Chronic diarrhea Recurrent falls Fatty liver FELISA (obstructive sleep apnea) CKD (chronic kidney disease) stage 4, GFR 15-29 ml/min Acquired hypothyroidism History of vitamin D deficiency Peripheral arterial disease Low back pain Vertigo Polyneuropathy Insomnia Myalgia Neck pain Carnitine palmitoyltransferase II deficiency Vision problems Thyroid cancer GERD (gastroesophageal reflux disease) Osteoarthritis Hypothyroid Neuropathy Kidney disease Hypertension History of emotional problems Chronic bronchitis Home Medications ?Medication ?Instructions ?Recorded ?Last Taken ?Type Disability Placard #1 ea 02/07/23 Unknown Rx aspirin 81 mg tablet,delayed 81 mg PO DAILY heart health 04/18/23 06/12/24 History release (Adult Low Dose Aspirin) cholecalciferol (vitamin D3) 50 50 mcg PO DAILY vitamin 04/18/23 06/12/24 History mcg (2,000 unit) capsule ferrous sulfate 325 mg (65 mg 325 mg PO DAILY 04/18/23 06/12/24 History iron) tablet levocarnitine 330 mg tablet 330 mg PO TID vitamin 04/18/23 06/12/24 History doxepin 100 mg capsule 100 mg PO QHS mental health #30 11/28/23 06/11/24 Rx caps tizanidine 4 mg tablet See Rx Instructions .Route 11/28/23 06/11/24 Rx .COMPLEX spasms #120 tabs hyoscyamine sulfate 0.125 mg tablet 0.125 mg PO 4X/DAY 12/11/23 Unknown History fluticasone fur. 200 mcg-umeclid 1 inh inhalation DAILY breathing 02/12/24 06/12/24 Rx 62.5 mcg-vilant 25 mcg #3 ea inhalat.powder (Trelegy Ellipta) compr.stocking,thigh,short,lrg #24 ea 02/29/24 Unknown Rx lovastatin 10 mg tablet 10 mg PO QPM cholesterol #90 tabs 03/06/24 06/11/24 Rx lisinopril 10 mg tablet 10 mg PO DAILY blood pressure #90 04/16/24 06/12/24 Rx tabs omeprazole 40 mg capsule,delayed 40 mg PO DAILY #90 caps 05/28/24 06/12/24 Rx release duloxetine 60 mg capsule,delayed 60 mg PO DAILY mental health #90 06/03/24 06/12/24 Rx release caps metoprolol tartrate 100 mg tablet 100 mg PO BID blood pressure #180 06/06/24 06/12/24 Rx tabs nifedipine 30 mg tablet,extended 30 mg PO DAILY blood pressure #90 06/06/24 06/12/24 Rx release tabs levothyroxine 175 mcg tablet 175 mcg PO DAILY thyroid 06/10/24 06/11/24 History triheptanoin 8.3 kcal/mL oral 166 kcal PO BID 06/12/24 06/12/24 History liquid (Dojolvi) Allergy/AdvReac Type Severity Reaction Status Date / Time Penicillins Allergy Unknown Unknown Verified 06/12/24 17:31 Family History Mother CVA (cerebral vascular accident) Heart disease Arthritis Lupus Father Myocardial infarction Hypertension Brother Colon cancer Brother Colon cancer Brother Cancer stomach Sister Seizures Grandfather Myocardial infarction Grandmother Myocardial infarction Surgical History History of cholecystectomy Cataract extraction status History of surgical procedure H/O thyroidectomy S/P cholecystectomy History of surgical procedure H/O wrist surgery History of repair of rotator cuff History of hysterectomy Hx of total knee replacement Social History household members: none housing: apartment current occupational status: unemployed Smoking Status: Former smoker quit date: 07/10/13 pack-years: 20 Tobacco: How many years used: 20 Electronic Cigarette Use: not used second hand exposure: No alcohol intake: never substance use type: marijuana and other details: THC gummy caffeine: Yes Type: coffee Number of servings: 2 what type of physical activity do you participate in: none seatbelt use: always do you feel safe at home: Yes ROS ROS Narrative Admission Review of Systems: CONSTITUTIONAL: No weight loss, fever, chills, + weakness or fatigue. HEENT: Eyes: No visual loss, blurred vision, double vision or yellow sclerae. Ears, Nose, Throat: No hearing loss, sneezing, congestion, runny nose or sore throat. SKIN: No rash or itching, lesions, wounds. CARDIOVASCULAR: No chest pain, chest pressure or chest discomfort, palpitations, edema, orthopnea, syncopal events. RESPIRATORY: No shortness of breath, cough or sputum, wheezing, hemoptysis. GASTROINTESTINAL: + Constipation. No anorexia, nausea, vomiting or diarrhea, abdominal pain, melena, BRBPR. GENITOURINARY: No dysuria, frequency, urgency or retention. NEUROLOGICAL: No headache, dizziness, syncope, paralysis, ataxia, numbness or tingling in the extremities, focal weakness, change in bowel or bladder control, seizure. MUSCULOSKELETAL: + muscle, back pain, joint pain or stiffness. HEMATOLOGIC: + History of anemia, easy bleeding or bruising. LYMPHATICS: No enlarged nodes. No history of splenectomy. PSYCHIATRIC: + History of anxiety and depression. ENDOCRINOLOGIC: No reports of sweating, cold or heat intolerance. No polyuria or polydipsia. ALLERGIES: No history of asthma, hives, eczema or rhinitis. Vital Signs Vital Signs Vital Signs: 06/12/24 17:31 06/12/24 17:50 06/12/24 19:31 Temperature 96.3 F L Temperature Source Temporal Pulse Rate 76 74 Respiratory Rate 18 19 H Respiratory Effort Normal Non-Labored Respiratory Pattern Normal Blood Pressure 118/91 H 190/92 H Blood Pressure Mean 100 124 Pulse Ox 97 97 Oxygen Delivery Method Room Air Room Air Physical Exam Narrative Physical Examination: General: Awake, alert, oriented x 3 and cooperative, lying in the bed, fatigued otherwise no acute distress, notes ongoing muscle discomfort. Skin: Normal color, normal turgor, no icterus, no cyanosis except occasional stage ecchymosis, abrasion. HEENT: AT/NC, EOMI, PERRLA, moderately dry MM, no carotid bruits or JVD noted. Lungs: Mildly diminished, greater bases, occasional expiratory wheeze but very scant, no rales or rhonchi, no evidence of any distress. Heart: Currently regular rate and rhythm; no gallop, rub audible. Abdomen: Soft, morbidly obese, NTTP, distant BS, difficult to discern distention HSM given habitus. Extremities: No cyanosis, no clubbing, no marked peripheral edema, discomfort to palpation of the muscles in the extremities as expected. Neurological: Patient awake, alert, oriented x 3 as noted, cognitive function intact; pupils equally reactive to light and accommodation, cranial nerves grossly normal, moving all 4 extremities, no focal deficits, strength moderately to severely globally decreased secondary to acute presentation complaints. Psychiatric: Affect appears fatigued, no acute evidence of depressive or anxiety feelings but does have underlying history. Results Lab / Micro Data 06/12/24 18:13 06/12/24 18:13 Labs: Laboratory Results - last 24 hr 06/12/24 18:13: WBC 9.9, RBC 5.11, Hgb 13.3, Hct 43.2, MCV 84.5, MCH 26.0 L, MCHC 30.8 L, RDW Std Deviation 46.7 H, RDW Coeff of Esvin 15.2 H, Plt Count 357, MPV 10.1, Immature Gran % (Auto) 0.200, Neut % (Auto) 69.9, Lymph % (Auto) 20.2, [place] % (Auto) 6.4, Eos % (Auto) 2.6, Baso % (Auto) 0.7, Absolute Neuts (auto) 6.9, Absolute Lymphs (auto) 2.00, Nucleated RBC % 0, Sodium 134 L, Potassium 5.2 H, Chloride 107, Carbon Dioxide 23.0, Anion Gap 4 L, BUN 40 H, Creatinine 2.35 H, Est GFR (MDRD) Af Amer 27 L, Est GFR (MDRD) Non-Af 22 L, BUN/Creatinine Ratio 17.0, Glucose 127 H, Calcium 9.0, Total Creatine Kinase Cancelled 06/12/24 19:12: Total Creatine Kinase 98569 H 06/12/24 20:00: Urine Color Yellow, Urine Clarity Clear, Urine pH 6.0, Ur Specific [place] 1.010, Urine Protein 30 H, Urine Glucose (UA) Normal, Urine Ketones Negative, Urine Occult Blood 250 H, Urine Nitrite Negative, Urine Bilirubin Negative, Urine Urobilinogen Normal, Ur Leukocyte Esterase 25 H, Urine RBC 0-5 SEEN, Urine WBC 0-5 SEEN, Ur Squamous Epith Cells 0 SEEN, Urine Bacteria 1+, Urine Mucus 0 SEEN Rhythm Strip Rhythm Strip: Sinus Rhythm Rate: 70 Ectopy: None Assessment & Plan Assessment/Plan (1) Acute renal failure due to rhabdomyolysis: PLAN: Plan The patient is a 64 y/o F w/ PMHx: Anxiety and Depression, COPD w/ Chronic Hypoxic Respiratory Failure (4L NC q HS only), Former Tobacco use, PAF, Polyclonal gammopathy, Nonobstructive CAD, Hx NSVT, Hx Thyroid CA status post thyroidectomy with resulting hypothyroidism, FELISA not using PAP therapy but on 4L NC q HS, HTN, HLD, GERD, Chronic neuropathy, Morbid obesity, 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 #1. Acute Kidney Injury on CKD stage IV per chart report (Most recently prior 06/10/24 1.98, thus increase >0.3 within 48 hours) secondary to likely underlying significant rhabdomyolysis as noted secondary to Carnitine palmitoyl transferase II underlying deficiency in the setting of dehydration: Admission BUN/Cr 40/2.35, prior baseline creatinine noted to be primarily 1.5-1.9, most recently 06/10/2024 creatinine 1.98 thus an increase of greater than 0.3 within 48 hours consistent with acute kidney injury at this time, will continue to aggressively hydrate, hold nephrotoxic medications and repeat chemistry in AM. If no improvement would plan FeNa and renal ultrasound assessment if necessary. Urinalysis is pending upon requested evaluation patient. PT/OT/CM consultation for discharge planning. #2. Acute rhabdomyolysis as noted secondary to Carnitine palmitoyl transferase II in the setting of dehydration with acute kidney injury: Admission total creatinine kinase 94688, will continue aggressive hydration while closely monitoring for volume overload and continue to trend CMP, monitor urine output and adjust IV fluids as needed, repeat TCK in AM. #3. Mild hyperkalemia: Secondary to underlying rhabdomyolysis in the setting of acute kidney injury as noted, admission potassium very mildly elevated 5.2, will judiciously hydrate especially given presentation with KRISTIN and rhabdomyolysis and will continue to trend CMP. #4. Carnitine palmitoyl transferase II deficiency: Unfortunately associated with intermittent episodes of acute rhabdomyolysis, will continue patient home triheptanoin, very judicious usage of tizanidine, continue levocarnitine supplementation, continue treatments as noted above. #5. Adult FTT, Multifactorial: Patient with significant underlying comorbidities which as noted lead to intermittent episodes of rhabdomyolysis and debility, unable to appropriately function requiring admission as noted with aggressive IV fluids to yeny KRISTIN and rhabdomyolysis. PT/OT/case management consulted for discharge planning. #6. Chronic COPD with chronic hypoxia respiratory failure (4L NC q HS only): Will continue home 4L NC q HS regimen, temporally hold home inhaler and in the interim maintain on ATC budesonide therapy, PRN albuterol, HOB, IS parameters. #7. Chronic constipation: Likely contributing to current situation, unable to afford high Cosamin, will place on MiraLAX regimen. #8. History of thyroid cancer status post resection with resulting hypothyroidism: Will continue patient home levothyroxine regimen. #9. Hypertension: Continue home regimen including nifedipine, metoprolol, PRN hydralazine. #10. Hyperlipidemia: Will temporally hold statin therapy given acute rhabdomyolysis given significant current muscle discomfort and pain, resume once appropriate. #11. Nonobstructive CAD: Will continue patient on aspirin, temporally holding statin given current muscle pain with acute rhabdomyolysis, continue metoprolol, holding lisinopril. #12. Anxiety and depression: Will continue patient home Cymbalta and doxepin regimen however if renal function worsens low threshold to hold if needed #13. Chronic iron deficiency anemia: Will continue patient home iron supplementation although this likely of note contributes to her chronic constipation. #14. Polyclonal gammopathy: Following with oncology, last visit noted 12/11/[address] Forde, noted history of persistently elevated kappa and lambda light chains and serum and urine (AKA Bence Davila protein) on repeat testing. Per most recent note given noted preserved ratio felt consistently reactive etiology and no evidence of clonality. Encouraged continued outpatient follow-up with oncology/hematology as needed or as previously arranged. #15. Former tobacco use: Encourage continued tobacco cessation. #16. ?PAF, Hx NSVT: Will continue patient home metoprolol regimen, per current list does not appear to be chronically anticoagulated, continue baby aspirin therapy, following with cardiology per review of records. #17. Morbid Obesity: Weight loss and lifestyle changes encouraged. #18. GERD: Will continue patient home PPI. #19. DVT prophylaxis: Heparin. #20. CODE status: Patient HCPOA and LW are not in place but patient reports her daughter and granddaughter would be her decision-maker is medically if necessary. Discussed CODE status at length including difference between FULL code, DNR-CCA and DNR-CC status. Following discussions about the differences in these status, requested Full Code status. Advanced Care Planning Face to Face Time: 16 minutes. Charges/Coding Visit Charges Inpatient E&M: 52419 Init Hosp L3 Procedures Hospitalists Procedures: 06548 Advncd Care Plan 30 Min
[2024-06-12 21:00] VITALS: BP 202/76; PULSE 72; RESP 18; O2SAT 95
[2024-06-12 21:13] VITALS: BP 202/76; PULSE 76; RESP 18; TEMP 36.7; O2SAT 96
[2024-06-12 21:17] LABS: Magnesium 2.1 mg/dL (1.6-2.6); Phosphorus 4.3 mg/dL (2.5-4.9)
[2024-06-12 21:25] VITALS: BMI 39.4
[2024-06-12 21:35] VITALS: BP 174/83; PULSE 71; RESP 18; TEMP 36.8; O2SAT 95
[2024-06-12] MEDS: 0.9% Normal Saline (1000mL) 1,000 ML 150 ML IV (22:18)
[2024-06-12] MEDS: DOXEPIN HCL 50 MG CAPSULE 100 MG PO (22:19)
[2024-06-12 22:20] VITALS: BP 177/91; PULSE 70
[2024-06-12] MEDS: Metoprolol Tartrate 25 MG Tablet 75 MG PO (22:20)
[2024-06-12] MEDS: Heparin Injection (Vial) 5,000 UNIT/ML VIAL 5000 UNIT SC (22:27)
[2024-06-12] MEDS: Levothyroxine 175 MCG Tablet PO (23:26)
[2024-06-13] VITALS (7 sets, daily range): BP systolic 135–158; BP diastolic 55–97; PULSE 64–89; RESP 18; TEMP 35.8–36.8; O2SAT 93–99; BMI 40.6
[2024-06-13] MEDS: 0.9% Normal Saline (1000mL) 1,000 ML 150 ML IV (04:32)
[2024-06-13 06:35] LABS: Absolute Neutrophil Count 4.8 X10^3/uL (2.0-7.7); Basophil# 0.07 X10^3/uL; Basophil% 0.9 % (0-1); Eosinophil# 0.27 X10^3/uL; Eosinophils% 3.4 % (0-5); Hematocrit 38.5 % (37-47); Hemoglobin 11.7 g/dL (12.0-15.0); Lymphocyte % 27.8 % (19-41); Mean Corp Hgb Conc 30.4 g/dL (32-36); Mean Corpuscular Hgb 25.7 pg (27.0-32.0); Mean Corpuscular Volume 84.4 fL (81-99); Mean Platelet Vol. 10.1 fl (6.2-12.0); Monocyte# 0.49 X10^3/uL; Monocyte% 6.2 % (0-10); NRBC Flagged by Analyzer 0 % (0-5); Neutrophil # 4.84 X10^3/uL (2.7-7.7); Neutrophil % 61.3 % (47-70); Platelet Count 266 K/mm3 (150-450); RBC Distribution Width CV 15.2 % (11.6-14.6); RBC Distribution Width SD 46.9 fl (35.1-43.9); Red Blood Count 4.56 M/mm3 (4.2-5.4); White Blood Count 7.9 K/mm3 (4.4-11.0)
[2024-06-13] MEDS: Budesonide Respules 0.5 MG/2 ML AMPUL.NEB. INHALATION ×2 (07:33→20:31)
[2024-06-13 08:30] LABS: ALB/GLOB Ratio 0.7 RATIO (0.9-2.4); AST(SGOT) 513 U/L (15-37); Alanine Aminotransfer ALT/SGPT 129 U/L (13-56); Albumin, Serum 2.8 g/dL (3.2-5.0); Alkaline Phosphatase 90 U/L (45-117); Anion Gap 4 (5-15); BUN 34 mg/dL (7-18); BUN/Creat Ratio 18.3 RATIO (10-20); CPK Total, Creatine Kinase 13771 U/L (26-192); Calcium,Total 8.1 mg/dL (8.5-10.1); Chloride 109 mmol/L (98-107); Creatinine, Serum 1.86 mg/dL (0.55-1.02); EST Glomerular Filtration Rate 29 mL/min (>60); Est Glom Filt Rate - Afr Amer 35 mL/min (>60); Estimated Creatinine Clearance 36.86 ml/min; Globulin 3.8 g/dL (2.2-4.2); Glucose 91 mg/dL (74-106); Potassium 4.7 mmol/L (3.5-5.1); Protein, Total 6.6 g/dL (6.4-8.2); Sodium Level 136 mmol/L (136-145)
[2024-06-13] MEDS: Metoprolol Tartrate 25 MG Tablet 75 MG PO ×2 (09:10→22:14)
[2024-06-13] MEDS: Heparin Injection (Vial) 5,000 UNIT/ML VIAL 5000 UNIT SC ×2 (09:10→22:14)
[2024-06-13] MEDS: Pantoprazole Sodium 40 MG Tablet PO (09:11)
[2024-06-13] MEDS: Ferrous Sulfate 325 MG Tablet PO (09:11)
[2024-06-13] MEDS: DULoxetine Hcl 60 MG Capsule PO (09:11)
[2024-06-13] MEDS: Aspirin E.C. 81 MG Tablet PO (09:11)
[2024-06-13] MEDS: NIFEdipine 30 MG Tablet PO (09:13)
[2024-06-13] MEDS: levOCARNitine 330 MG TABLET PO ×3 (10:01→22:13)
--- NOTE | 2024-06-13 12:00 | CASEMGMT ---
RN CM Face to Face with patient for initial transition planning/care coordination assessment. RN CM introduced self and role at [facility]. Patient lying in bed, alert and oriented. Patient willing to participate in assessment and is able to answer all questions appropriately. Care providers, pharmacy, and demographics verified. Lace: 11 Strata: 3 PCP: Heidi Specialists: Rl, bicycle courier; Anh, advertising supervisor; Jake, bushel girl; KIERA Pisano Preferred Pharmacy: [facility] Insurance: [facility] Dual Care Prescription Benefit: yes Living Will/HPOA: none LNOK: granddaughter Living Arrangements: Patient lives alone in a first floor apartment with no steps to enter. Patient is independent at home. Transportation: granddaughter, self DME/HHC: Patient has shower chair, raised toilet, cane, grab bars, nebulizer, pulse ox, electric wheelchair, and home oxygen through [employer] No previous HHC or SNF Patient wishes to discharge home, denies need for home health at this time. Patient states she has no further needs or concerns at this time. CM to follow for discharge planning needs that may arise. Disposition Plan: Patient to discharge home with family support and follow-up plans in place. Tali WONG, RN, CM
[2024-06-13] MEDS: Dextrose 10%-Water 250 ML 150 ML IV ×7 (12:13→23:06)
--- NOTE | 2024-06-13 15:52 | PN_ITS ---
Subjective Subjective Patient seen and examined. She had no active complaints. She was admitted and is being managed for rhabdomyolysis. She denies any nausea or vomiting, fever or chills or any other symptoms. Review of symptoms otherwise negative. She does have a history of chronic inflammatory transferred to [facility] with frequent episodes of rhabdomyolysis. His CPK has trended up slightly this morning. Review systems are negative. Objective Data Objective Data Vital Signs: Vital Signs Temp Pulse Resp BP Pulse Ox O2 Del Method O2 Flow Rate 97.6 F L 67 18 158/71 H 99 Room Air 5 06/13/24 09:10 06/13/24 09:10 06/13/24 09:10 06/13/24 09:10 06/13/24 09:10 06/13/24 14:00 06/13/24 07:35 Oxygen Flow Rate (L/min) 5 Oxygen Delivery Method Room Air Weight: 244 lb 0.827 oz Body Mass Index (BMI) 40.6 Intake & Output: Intake and Output for Last 24 Hours 06/11/24 06/12/24 06/13/24 23:59 23:59 23:59 Intake Total 1999 2695 / 2695 Balance 1999 2695 / 2695 Lab / Micro Data 06/13/24 05:58 06/13/24 05:58 Labs: Laboratory Results - last 24 hr 06/12/24 18:13: WBC 9.9, RBC 5.11, Hgb 13.3, Hct 43.2, MCV 84.5, MCH 26.0 L, M CHC 30.8 L, RDW Std Deviation 46.7 H, RDW Coeff of Esvin 15.2 H, Plt Count 357, MPV 10.1, Immature Gran % (Auto) 0.200, Neut % (Auto) 69.9, Lymph % (Auto) 20.2, [place] % (Auto) 6.4, Eos % (Auto) 2.6, Baso % (Auto) 0.7, Absolute Neuts (auto) 6.9, Absolute Lymphs (auto) 2.00, Nucleated RBC % 0, Sodium 134 L, Potassium 5.2 H, Chloride 107, Carbon Dioxide 23.0, Anion Gap 4 L, BUN 40 H, Creatinine 2.35 H , Est GFR (MDRD) Af Amer 27 L, Est GFR (MDRD) Non-Af 22 L, BUN/Creatinine Ratio 17.0, Glucose 127 H, Calcium 9.0, Total Creatine Kinase Cancelled 06/12/24 19:12: Phosphorus 4.3, Magnesium 2.1, Total Creatine Kinase 45060 H 06/12/24 20:00: Urine Color Yellow, Urine Clarity Clear, Urine pH 6.0, Ur Specific [place] 1.010, Urine Protein 30 H, Urine Glucose (UA) Normal, Urine Ketones Negative, Urine Occult Blood 250 H, Urine Nitrite Negative, Urine Bilirubin Negative, Urine Urobilinogen Normal, Ur Leukocyte Esterase 25 H, Urine RBC 0-5 SEEN, Urine WBC 0-5 SEEN, Ur Squamous Epith Cells 0 SEEN, Urine Bacteria 1+, Urine Mucus 0 SEEN 06/13/24 05:58: WBC 7.9, RBC 4.56, Hgb 11.7 L, Hct 38.5, MCV 84.4, MCH 25.7 L, M CHC 30.4 L, RDW Std Deviation 46.9 H, RDW Coeff of Esvin 15.2 H, Plt Count 266, MPV 10.1, Immature Gran % (Auto) 0.400, Neut % (Auto) 61.3, Lymph % (Auto) 27.8, [place] % (Auto) 6.2, Eos % (Auto) 3.4, Baso % (Auto) 0.9, Absolute Neuts (auto) 4.8, Absolute Lymphs (auto) 2.20, Nucleated RBC % 0, Sodium 136, Potassium 4.7, Chloride 109 H, Carbon Dioxide 23.0, Anion Gap 4 L, BUN 34 H, Creatinine 1.86 H, Estim Creat Clear Calc 36.86, Est GFR (MDRD) Af Amer 35 L, Est GFR (MDRD) Non-Af 29 L, BUN/Creatinine Ratio 18.3, Glucose 91, Calcium 8.1 L, Total Bilirubin 0.20, AST 513 H, ALT 129 H, Alkaline Phosphatase 90, Total Creatine Kinase 87329 H, Total Protein 6.6, Albumin 2.8 L, Globulin 3.8, Albumin/Globulin Ratio 0.7 L Rhythm Strip Rhythm Strip: Sinus Rhythm Rate: 70 Ectopy: None Physical Exam Const alert, oriented x3 and no apparent distress General Appearance: cooperative and well developed HEENT normocephalic, head/scalp atraumatic, moist oral mucous membranes and oropharynx normal Eyes PERRL and EOMs intact bilaterally Neck no lymphadenopathy, supple and no JVD Lymph Lymphatic: no lymphadenopathy noted and no lymphedema noted Resp normal respiratory effort, normal air movement and clear to auscultation bilaterally Cardio regular rate, regular rhythm, S1 normal heart sound, S2 normal heart sound and no murmurs GI normal to inspection, nondistended, normoactive bowel sounds, soft to palpation, non-tender and non-distended Extremity normal capillary refill, no clubbing, cyanosis or edema and no calf tenderness General Extremity: no tenderness to palpation of joints or extremities Skin General Skin Exam: no breakdown Neuro CN's II-XII intact bilaterally, no focal motor deficits, no sensory deficits noted and deep tendon reflexes 2+ bilaterally Motor Exam: strength 5/5 throughout and general weakness Psych thought process normal and cooperative Appearance: appropriate Assessment & Plan Assessment/Plan (1) Acute renal failure due to rhabdomyolysis: PLAN: Plan #Rhabdomyolysis * 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 * CPK is over 13,000 and trended up slightly at this morning. * Was being hydrated with IV fluids normal saline. I did speak to her rubber liner at [facility] who recommended that we switch the fluids with dextrose containing fluid. Per her recommendation patient placed on D10 normal saline at 150 cc/h. She is not to have any lipid containing fluids or medications under any circumstance at this can exacerbate her symptoms, per her rubber liner. * Continue to trend CPK * #KRISTIN on CKD stage IV: Patient being hydrated with fluids as above. Baseline creatinine is usually 1.5-1.9. Creatinine was 2.35 on admission. Will continue to monitor. Cr down to 1.86 today. #Mild hyperkalemia: Likely due to KRISTIN on CKD abdominal Alysis. Will monitor. Potassium is down to 4.7. #Carnitine palmitoyl transferred II deficiency * Patient on triheptanoin and tizanidine. * To follow-up with her rubber liner on outpatient basis #Chronic respiratory failure due to COPD: On baseline 4 L of oxygen. Breathing treatments bronchodilators. #History of hypothyroidism: This is likely result of thyroid cancer for which she had resection. On Synthroid #Hypertension: On nifedipine and metoprolol. IV hydralazine as needed #Hyperlipidemia: Statins held due to acute rhabdomyolysis. Will resume when rhabdomyolysis resolves #Nonobstructive CAD: On aspirin and metoprolol. Lisinopril and statin on hold. #Anxiety and depression: On Cymbalta and doxepin #History of polyclonal gammopathy: * Follows with oncology and noted to have persistently elevated kappa and lambda light chains and serum and urine proteins on testing. * To follow-up with oncology on outpatient basis #GERD: On PPI #Morbid obesity: BMI is 40.6. Complicates acute care, expected recovery and prognosis DVT prophylaxis: Heparin Charges/Coding Visit Charges Inpatient E&M: 91895 Subs Hosp L3
[2024-06-13] MEDS: [UNRECOGNIZED DRUG - OTHER] 166 KCAL PO (15:59)
[2024-06-13 16:20] LABS: Bedside Glucose 106 mg/dL (74-106)
[2024-06-13] MEDS: 0.9% Saline Lock 10 ML Syringe IV (21:29)
[2024-06-13] MEDS: DOXEPIN HCL 50 MG CAPSULE 100 MG PO (22:14)
[2024-06-13 22:58] LABS: Bedside Glucose 150 mg/dL (74-106)
[2024-06-14] VITALS (10 sets, daily range): BP systolic 122–150; BP diastolic 61–88; PULSE 62–78; RESP 16–20; TEMP 36.1–36.7; O2SAT 90–98; BMI 40.6
[2024-06-14] MEDS: Dextrose 10%-Water 250 ML 150 ML IV ×7 (01:03→11:48)
[2024-06-14] MEDS: levOCARNitine 330 MG TABLET PO ×3 (06:08→20:11)
[2024-06-14 06:35] LABS: Bedside Glucose 126 mg/dL (74-106)
[2024-06-14 06:46] LABS: Absolute Lymphocyte Count 1.77 X10^3/uL (0.83-4.51); Absolute Neutrophil Count 3.8 X10^3/uL (2.0-7.7); Basophil# 0.04 X10^3/uL; Basophil% 0.6 % (0-1); Eosinophils% 3.1 % (0-5); Hematocrit 36.7 % (37-47); Lymphocyte # 1.77 X10^3/ul (0.83-4.51); Lymphocyte % 27.9 % (19-41); Mean Corpuscular Hgb 25.5 pg (27.0-32.0); Mean Corpuscular Volume 85.2 fL (81-99); Mean Platelet Vol. 10.7 fl (6.2-12.0); Monocyte# 0.48 X10^3/uL; Monocyte% 7.6 % (0-10); NRBC Flagged by Analyzer 0 % (0-5); Neutrophil # 3.84 X10^3/uL (2.7-7.7); Neutrophil % 60.5 % (47-70); Platelet Count 200 K/mm3 (150-450); RBC Distribution Width CV 14.9 % (11.6-14.6); RBC Distribution Width SD 46.7 fl (35.1-43.9); Red Blood Count 4.31 M/mm3 (4.2-5.4); White Blood Count 6.4 K/mm3 (4.4-11.0)
[2024-06-14] MEDS: Budesonide Respules 0.5 MG/2 ML AMPUL.NEB. INHALATION ×2 (07:28→19:41)
[2024-06-14] MEDS: [UNRECOGNIZED DRUG - OTHER] 166 KCAL PO ×2 (10:04→13:00)
[2024-06-14] MEDS: Ferrous Sulfate 325 MG Tablet PO (10:05)
[2024-06-14] MEDS: DULoxetine Hcl 60 MG Capsule PO (10:05)
[2024-06-14] MEDS: Aspirin E.C. 81 MG Tablet PO (10:05)
[2024-06-14] MEDS: Heparin Injection (Vial) 5,000 UNIT/ML VIAL 5000 UNIT SC ×2 (10:06→20:18)
[2024-06-14] MEDS: NIFEdipine 30 MG Tablet PO (10:06)
[2024-06-14] MEDS: Metoprolol Tartrate 25 MG Tablet 75 MG PO ×2 (10:06→20:13)
[2024-06-14] MEDS: Pantoprazole Sodium 40 MG Tablet PO (10:14)
[2024-06-14 11:01] LABS: Anion Gap 6 (5-15); BUN 17 mg/dL (7-18); BUN/Creat Ratio 11.4 RATIO (10-20); CPK Total, Creatine Kinase 15054 U/L (26-192); Calcium,Total 8.5 mg/dL (8.5-10.1); Chloride 106 mmol/L (98-107); Creatinine, Serum 1.49 mg/dL (0.55-1.02); EST Glomerular Filtration Rate 37 mL/min (>60); Est Glom Filt Rate - Afr Amer 45 mL/min (>60); Estimated Creatinine Clearance 46.01 ml/min; Glucose 129 mg/dL (74-106); Potassium 4.5 mmol/L (3.5-5.1); Sodium Level 135 mmol/L (136-145)
--- NOTE | 2024-06-14 11:11 | PN_ITS ---
Subjective Subjective Patient seen and examined. She feels well and has no complaints. He had an uneventful night. Review of systems otherwise negative. She said her generalized body pain has improved. However his CPK has trended down even further to 15,000 today. Objective Data Objective Data Vital Signs: Vital Signs Temp Pulse Resp BP Pulse Ox O2 Del Method O2 Flow Rate 97.9 F 65 16 122/73 H 94 Room Air 5 06/14/24 09:50 06/14/24 10:06 06/14/24 09:50 06/14/24 09:50 06/14/24 09:50 06/14/24 09:50 06/14/24 08:10 Oxygen Flow Rate (L/min) 5 Oxygen Delivery Method Room Air Weight: 244 lb 0.827 oz Body Mass Index (BMI) 40.6 Intake & Output: Intake and Output for Last 24 Hours 06/12/24 06/13/24 06/14/24 23:59 23:59 23:59 Intake Total 1999 4302.5 / 4502.5 1662.5 / 1662.5 Balance 1999 4302.5 / 4502.5 1662.5 / 1662.5 Lab / Micro Data 06/14/24 06:05 06/14/24 06:05 Labs: Laboratory Results - last 24 hr 06/13/24 15:58: POC Glucose 106 06/13/24 22:10: POC Glucose 150 H 06/14/24 06:05: WBC 6.4, RBC 4.31, Hgb 11.0 L, Hct 36.7 L, MCV 85.2, MCH 25.5 L, MCHC 30.0 L, RDW Std Deviation 46.7 H, RDW Coeff of Esvin 14.9 H, Plt Count 200, MPV 10.7, Immature Gran % (Auto) 0.300, Neut % (Auto) 60.5, Lymph % (Auto) 27.9, [place] % (Auto) 7.6, Eos % (Auto) 3.1, Baso % (Auto) 0.6, Absolute Neuts (auto) 3.8, Absolute Lymphs (auto) 1.77, Nucleated RBC % 0, Sodium 135 L, Potassium 4.5, Chloride 106, Carbon Dioxide 23.0, Anion Gap 6, BUN 17, Creatinine 1.49 H, Estim Creat Clear Calc 46.01, Est GFR (MDRD) Af Amer 45 L, Est GFR (MDRD) Non-Af 37 L, BUN/Creatinine Ratio 11.4, Glucose 129 H, Calcium 8.5, Total Creatine Kinase 15248 H 06/14/24 06:09: POC Glucose 126 H Rhythm Strip Rhythm Strip: Sinus Rhythm Rate: 70 Ectopy: None Physical Exam Const alert, oriented x3 and no apparent distress General Appearance: cooperative and well developed HEENT normocephalic, head/scalp atraumatic, moist oral mucous membranes and oropharynx normal Eyes PERRL and EOMs intact bilaterally Neck no lymphadenopathy, supple and no JVD Lymph Lymphatic: no lymphadenopathy noted and no lymphedema noted Resp normal respiratory effort, normal air movement and clear to auscultation bilaterally Cardio regular rate, regular rhythm, S1 normal heart sound, S2 normal heart sound and no murmurs GI normal to inspection, nondistended, normoactive bowel sounds, soft to palpation, non-tender and non-distended Extremity normal capillary refill, no clubbing, cyanosis or edema and no calf tenderness General Extremity: no tenderness to palpation of joints or extremities Skin General Skin Exam: no breakdown Neuro CN's II-XII intact bilaterally, no focal motor deficits, no sensory deficits noted and deep tendon reflexes 2+ bilaterally Motor Exam: strength 5/5 throughout and general weakness Psych thought process normal and cooperative Appearance: appropriate Assessment & Plan Assessment/Plan (1) Acute renal failure due to rhabdomyolysis: PLAN: Plan #Rhabdomyolysis * 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 * CPK has trended up even further today from ~ 62989 to 56927. * I tried calling her dog day care attendant Tatiana Richardson ([phone]) at [facility]. Message left. * Will increase her D10 infusion from 150 cc/h to 250 cc/h * Will discuss with her dog day care attendant on unable to get through to hear about whether there is any benefit in added on sodium bicarb infusion as well. * Continue to trend CPK. * * #KRISTIN on CKD stage IV: * Patient being hydrated with fluids as above. * Baseline creatinine is usually 1.5-1.9. * Creatinine was 2.35 on admission. * Creatinine is down to 1.49 today. #Mild hyperkalemia: Resolved. #Carnitine palmitoyl transferred II deficiency * Patient on triheptanoin and tizanidine. * To follow-up with her dog day care attendant on outpatient basis #Chronic respiratory failure due to COPD: On baseline 4 L of oxygen. Breathing treatments bronchodilators. #History of hypothyroidism: This is likely result of thyroid cancer for which she had resection. On Synthroid #Hypertension: On nifedipine and metoprolol. IV hydralazine as needed #Hyperlipidemia: Statins held due to acute rhabdomyolysis. Will resume when rhabdomyolysis resolves #Nonobstructive CAD: On aspirin and metoprolol. Lisinopril and statin on hold. #Anxiety and depression: On Cymbalta and doxepin #History of polyclonal gammopathy: * Follows with oncology and noted to have persistently elevated kappa and lambda light chains and serum and urine proteins on testing. * To follow-up with oncology on outpatient basis #GERD: On PPI #Morbid obesity: BMI is 40.6. Complicates acute care, expected recovery and prognosis DVT prophylaxis: Heparin Charges/Coding Visit Charges Inpatient E&M: 78040 Subs Hosp L3
[2024-06-14 12:14] LABS: Bedside Glucose 105 mg/dL (74-106)
[2024-06-14] MEDS: Dextrose 10%-Water 250 ML IV ×10 (13:00→23:24)
[2024-06-14] MEDS: 0.9% Saline Lock 10 ML Syringe IV (15:45)
[2024-06-14 16:33] LABS: Bedside Glucose 129 mg/dL (74-106)
--- NOTE | 2024-06-14 18:27 | NURSING ---
Reviewed and agreed on charting with Paulina Mcconnell RN
[2024-06-14] MEDS: DOXEPIN HCL 50 MG CAPSULE 100 MG PO (20:12)
[2024-06-14 20:56] LABS: Bedside Glucose 112 mg/dL (74-106)
[2024-06-14] MEDS: Levothyroxine 175 MCG Tablet PO (22:25)
[2024-06-15] VITALS (8 sets, daily range): BP systolic 101–170; BP diastolic 67–100; PULSE 63–85; RESP 16–20; TEMP 35.7–36.7; O2SAT 95–100; BMI 40.8
[2024-06-15] MEDS: Dextrose 10%-Water 250 ML IV ×8 (00:35→09:06)
[2024-06-15 06:08] LABS: Absolute Lymphocyte Count 1.46 X10^3/uL (0.83-4.51); Absolute Neutrophil Count 3.9 X10^3/uL (2.0-7.7); Basophil# 0.03 X10^3/uL; Basophil% 0.5 % (0-1); Eosinophil# 0.17 X10^3/uL; Eosinophils% 2.8 % (0-5); Hematocrit 37.6 % (37-47); Hemoglobin 11.4 g/dL (12.0-15.0); Lymphocyte # 1.46 X10^3/ul (0.83-4.51); Lymphocyte % 24.2 % (19-41); Mean Corp Hgb Conc 30.3 g/dL (32-36); Mean Corpuscular Hgb 25.7 pg (27.0-32.0); Mean Corpuscular Volume 84.7 fL (81-99); Monocyte# 0.48 X10^3/uL; NRBC Flagged by Analyzer 0 % (0-5); Neutrophil # 3.87 X10^3/uL (2.7-7.7); Neutrophil % 64.2 % (47-70); Platelet Count 201 K/mm3 (150-450); RBC Distribution Width CV 14.4 % (11.6-14.6); RBC Distribution Width SD 44.7 fl (35.1-43.9); Red Blood Count 4.44 M/mm3 (4.2-5.4)
[2024-06-15] MEDS: levOCARNitine 330 MG TABLET PO ×3 (06:28→21:40)
[2024-06-15 07:04] LABS: Anion Gap 4 (5-15); BUN 10 mg/dL (7-18); BUN/Creat Ratio 7.4 RATIO (10-20); CPK Total, Creatine Kinase 6256 U/L (26-192); Calcium,Total 8.3 mg/dL (8.5-10.1); Chloride 102 mmol/L (98-107); Creatinine, Serum 1.36 mg/dL (0.55-1.02); EST Glomerular Filtration Rate 41 mL/min (>60); Est Glom Filt Rate - Afr Amer 50 mL/min (>60); Estimated Creatinine Clearance 50.54 ml/min; Glucose 131 mg/dL (74-106); Potassium 4.2 mmol/L (3.5-5.1); Sodium Level 132 mmol/L (136-145)
[2024-06-15 07:05] LABS: Bedside Glucose 126 mg/dL (74-106)
[2024-06-15] MEDS: Budesonide Respules 0.5 MG/2 ML AMPUL.NEB. INHALATION ×2 (07:20→20:11)
[2024-06-15] MEDS: DULoxetine Hcl 60 MG Capsule PO (08:38)
[2024-06-15] MEDS: Aspirin E.C. 81 MG Tablet PO (08:38)
[2024-06-15] MEDS: Ferrous Sulfate 325 MG Tablet PO (08:38)
[2024-06-15] MEDS: [UNRECOGNIZED DRUG - OTHER] 166 KCAL PO ×2 (08:39→18:02)
--- NOTE | 2024-06-15 10:00 | NURSING ---
This RN taking over care of pt at this time.
[2024-06-15] MEDS: Dextrose 10%-Water 250 ML 200 ML IV ×11 (10:25→23:02)
[2024-06-15] MEDS: Metoprolol Tartrate 25 MG Tablet 75 MG PO ×2 (10:27→21:41)
[2024-06-15] MEDS: Pantoprazole Sodium 40 MG Tablet PO (10:27)
[2024-06-15] MEDS: NIFEdipine 30 MG Tablet PO (10:27)
[2024-06-15] MEDS: Heparin Injection (Vial) 5,000 UNIT/ML VIAL 5000 UNIT SC ×2 (10:28→21:41)
--- NOTE | 2024-06-15 11:30 | PN_ITS ---
Subjective Subjective Patient seen and examined. She has no complaints and feels much better. She had an uneventful night and review of systems otherwise negative. She has remained hemodynamically stable. Objective Data Objective Data Vital Signs: Vital Signs Temp Pulse Resp BP Pulse Ox O2 Del Method O2 Flow Rate 97.9 F 63 16 165/67 H 100 Nasal Cannula 4 06/15/24 10:22 06/15/24 10:27 06/15/24 10:22 06/15/24 10:22 06/15/24 10:22 06/15/24 10:22 06/15/24 07:20 Oxygen Flow Rate (L/min) 4 Oxygen Delivery Method Nasal Cannula Weight: 245 lb 2.464 oz Body Mass Index (BMI) 40.8 Intake & Output: Intake and Output for Last 24 Hours 06/13/24 06/14/24 06/15/24 23:59 23:59 23:59 Intake Total 4302.5 / 4502.5 5065.0 / 5545.0 2730 / 2730 Balance 4302.5 / 4502.5 5065.0 / 5545.0 2730 / 2730 Lab / Micro Data 06/15/24 05:41 06/15/24 05:41 Labs: Laboratory Results - last 24 hr 06/14/24 11:54: POC Glucose 105 06/14/24 16:07: POC Glucose 129 H 06/14/24 20:26: POC Glucose 112 H 06/15/24 05:41: WBC 6.0, RBC 4.44, Hgb 11.4 L, Hct 37.6, MCV 84.7, MCH 25.7 L, M CHC 30.3 L, RDW Std Deviation 44.7 H, RDW Coeff of Esvin 14.4, Plt Count 201, MPV 10.0, Immature Gran % (Auto) 0.300, Neut % (Auto) 64.2, Lymph % (Auto) 24.2, [place] % (Auto) 8.0, Eos % (Auto) 2.8, Baso % (Auto) 0.5, Absolute Neuts (auto) 3.9, Absolute Lymphs (auto) 1.46, Nucleated RBC % 0, Sodium 132 L, Potassium 4.2, Chloride 102, Carbon Dioxide 26.0, Anion Gap 4 L, BUN 10, Creatinine 1.36 H , Estim Creat Clear Calc 50.54, Est GFR (MDRD) Af Amer 50 L, Est GFR (MDRD) Non- Af 41 L, BUN/Creatinine Ratio 7.4 L, Glucose 131 H, Calcium 8.3 L, Total Creatine Kinase 6256 H 06/15/24 06:26: POC Glucose 126 H Rhythm Strip Rhythm Strip: Sinus Rhythm Rate: 70 Ectopy: None Physical Exam Const alert, oriented x3 and no apparent distress General Appearance: cooperative and well developed HEENT normocephalic, head/scalp atraumatic, moist oral mucous membranes and oropharynx normal Eyes PERRL and EOMs intact bilaterally Neck no lymphadenopathy, supple and no JVD Lymph Lymphatic: no lymphadenopathy noted and no lymphedema noted Resp normal respiratory effort, normal air movement and clear to auscultation bilaterally Cardio regular rate, regular rhythm, S1 normal heart sound, S2 normal heart sound and no murmurs GI normal to inspection, nondistended, normoactive bowel sounds, soft to palpation, non-tender and non-distended Extremity normal capillary refill, no clubbing, cyanosis or edema and no calf tenderness General Extremity: no tenderness to palpation of joints or extremities Skin General Skin Exam: no breakdown Neuro CN's II-XII intact bilaterally, no focal motor deficits, no sensory deficits noted and deep tendon reflexes 2+ bilaterally Motor Exam: strength 5/5 throughout and general weakness Psych thought process normal and cooperative Appearance: appropriate Assessment & Plan Assessment/Plan (1) Acute renal failure due to rhabdomyolysis: PLAN: Plan #Rhabdomyolysis * 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 * CPK has trended down significantly to around 6000 today. * Will cut down the D10 normal saline infusion to 200 cc/h today. * Continue to trend CPK. * * #KRISTIN on CKD stage III: * Patient being hydrated with fluids as above. * Baseline creatinine is usually 1.5-1.9. * Creatinine is down to a baseline at 1.36. #Mild hyperkalemia: Resolved. #Carnitine palmitoyl transferred II deficiency * Patient on triheptanoin and tizanidine. * To follow-up with her master technician on outpatient basis #Chronic respiratory failure due to COPD: On baseline 4 L of oxygen. Breathing treatments bronchodilators. #History of hypothyroidism: This is likely result of thyroid cancer for which she had resection. On Synthroid #Hypertension: On nifedipine and metoprolol. IV hydralazine as needed #Hyperlipidemia: Statins held due to acute rhabdomyolysis. Will resume when rhabdomyolysis resolves #Nonobstructive CAD: On aspirin and metoprolol. Lisinopril and statin on hold. #Anxiety and depression: On Cymbalta and doxepin #History of polyclonal gammopathy: * Follows with oncology and noted to have persistently elevated kappa and lambda light chains and serum and urine proteins on testing. * To follow-up with oncology on outpatient basis #GERD: On PPI #Morbid obesity: BMI is 40.6. Complicates acute care, expected recovery and prognosis DVT prophylaxis: Heparin Disposition: Anticipate discharge home over the next 1 to 2 days. Charges/Coding Visit Charges Inpatient E&M: 85288 Subs Hosp L2
[2024-06-15 11:51] LABS: Bedside Glucose 127 mg/dL (74-106)
[2024-06-15 17:14] LABS: Bedside Glucose 129 mg/dL (74-106)
[2024-06-15] MEDS: Albuterol 2.5 MG/3 ML VIAL.NEB. INHALATION (20:11)
[2024-06-15] MEDS: DOXEPIN HCL 50 MG CAPSULE 100 MG PO (21:41)
[2024-06-15] MEDS: Levothyroxine 175 MCG Tablet PO (21:41)
[2024-06-15 22:04] LABS: Bedside Glucose 124 mg/dL (74-106)
[2024-06-15] MEDS: 0.9% Saline Lock 10 ML Syringe IV (23:13)
[2024-06-16] VITALS (7 sets, daily range): BP systolic 121–167; BP diastolic 58–99; PULSE 65–76; RESP 16–28; TEMP 36–36.3; O2SAT 94–99; BMI 40.7
[2024-06-16] MEDS: Dextrose 10%-Water 250 ML 200 ML IV ×19 (00:20→23:35)
[2024-06-16 06:04] LABS: Absolute Lymphocyte Count 1.55 X10^3/uL (0.83-4.51); Absolute Neutrophil Count 4.8 X10^3/uL (2.0-7.7); Basophil# 0.05 X10^3/uL; Basophil% 0.7 % (0-1); Eosinophil# 0.22 X10^3/uL; Hematocrit 36.8 % (37-47); Hemoglobin 11.2 g/dL (12.0-15.0); Lymphocyte # 1.55 X10^3/ul (0.83-4.51); Lymphocyte % 21.3 % (19-41); Mean Corp Hgb Conc 30.4 g/dL (32-36); Mean Corpuscular Hgb 25.6 pg (27.0-32.0); Mean Platelet Vol. 10.1 fl (6.2-12.0); Monocyte# 0.62 X10^3/uL; Monocyte% 8.5 % (0-10); NRBC Flagged by Analyzer 0 % (0-5); Neutrophil # 4.78 X10^3/uL (2.7-7.7); Neutrophil % 65.9 % (47-70); Platelet Count 244 K/mm3 (150-450); Red Blood Count 4.38 M/mm3 (4.2-5.4); White Blood Count 7.3 K/mm3 (4.4-11.0)
[2024-06-16] MEDS: levOCARNitine 330 MG TABLET PO ×3 (06:37→21:08)
[2024-06-16 06:56] LABS: Bedside Glucose 140 mg/dL (74-106)
[2024-06-16 08:43] LABS: Anion Gap 7 (5-15); BUN 9 mg/dL (7-18); BUN/Creat Ratio 7.1 RATIO (10-20); CPK Total, Creatine Kinase 2032 U/L (26-192); Calcium,Total 8.4 mg/dL (8.5-10.1); Chloride 98 mmol/L (98-107); Creatinine, Serum 1.26 mg/dL (0.55-1.02); EST Glomerular Filtration Rate 45 mL/min (>60); Est Glom Filt Rate - Afr Amer 55 mL/min (>60); Glucose 82 mg/dL (74-106); Potassium 4.3 mmol/L (3.5-5.1); Sodium Level 130 mmol/L (136-145)
--- NOTE | 2024-06-16 08:58 | PCM.PROGNOTE ---
Subjective Subjective Patient seen and examined. She felt well and had no complaints. Review of systems otherwise negative. CPK has trended down to 2031. Objective Data Objective Data Vital Signs: Vital Signs Temp Pulse Resp BP Pulse Ox O2 Del Method O2 Flow Rate 97.1 F L 65 18 136/58 H 99 Nasal Cannula 4 06/16/24 03:20 06/16/24 03:20 06/16/24 03:20 06/16/24 03:20 06/16/24 03:20 06/16/24 03:20 06/16/24 03:20 Oxygen Flow Rate (L/min) 4 Oxygen Delivery Method Nasal Cannula Weight: 244 lb 11.41 oz Body Mass Index (BMI) 40.7 Intake & Output: Intake and Output for Last 24 Hours 06/14/24 06/15/24 06/16/24 23:59 23:59 23:59 Intake Total 5065.0 / 5545.0 7156.67 / 7156.67 1500 / 1500 Balance 5065.0 / 5545.0 7156.67 / 7156.67 1500 / 1500 Lab / Micro Data 06/16/24 05:30 06/16/24 05:30 Labs: Laboratory Results - last 24 hr 06/15/24 11:07: POC Glucose 127 H 06/15/24 16:48: POC Glucose 129 H 06/15/24 21:40: POC Glucose 124 H 06/16/24 05:30: WBC 7.3, RBC 4.38, Hgb 11.2 L, Hct 36.8 L, MCV 84.0, MCH 25.6 L, MCHC 30.4 L, RDW Std Deviation 43.0, RDW Coeff of Esvin 14.0, Plt Count 244, MPV 10.1, Immature Gran % (Auto) 0.600, Neut % (Auto) 65.9, Lymph % (Auto) 21.3, [place] % (Auto) 8.5, Eos % (Auto) 3.0, Baso % (Auto) 0.7, Absolute Neuts (auto) 4.8, Absolute Lymphs (auto) 1.55, Nucleated RBC % 0, Sodium 130 L, Potassium 4.3, Chloride 98, Carbon Dioxide 25.0, Anion Gap 7, BUN 9, Creatinine 1.26 H, Estim Creat Clear Calc 54.50, Est GFR (MDRD) Af Amer 55 L, Est GFR (MDRD) Non-Af 45 L, BUN/Creatinine Ratio 7.1 L, Glucose 82, Calcium 8.4 L, Total Creatine Kinase 203106/16/24 06:37: POC Glucose 140 H Rhythm Strip Rhythm Strip: Sinus Rhythm Rate: 70 Ectopy: None Physical Exam Const alert, oriented x3 and no apparent distress General Appearance: cooperative and well developed HEENT normocephalic, head/scalp atraumatic, moist oral mucous membranes and oropharynx normal Eyes PERRL and EOMs intact bilaterally Neck no lymphadenopathy, supple and no JVD Lymph Lymphatic: no lymphadenopathy noted and no lymphedema noted Resp normal respiratory effort, normal air movement and clear to auscultation bilaterally Cardio regular rate, regular rhythm, S1 normal heart sound, S2 normal heart sound and no murmurs GI normal to inspection, nondistended, normoactive bowel sounds, soft to palpation, non-tender and non-distended Extremity normal capillary refill, no clubbing, cyanosis or edema and no calf tenderness General Extremity: no tenderness to palpation of joints or extremities Skin General Skin Exam: no breakdown Neuro CN's II-XII intact bilaterally, no focal motor deficits, no sensory deficits noted and deep tendon reflexes 2+ bilaterally Motor Exam: strength 5/5 throughout and general weakness Psych thought process normal and cooperative Appearance: appropriate Assessment & Plan Assessment/Plan (1) Acute renal failure due to rhabdomyolysis: PLAN: Plan #Rhabdomyolysis 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 CPK has trended down further to 2031 today. continue D10 NS infusion at 200cc/hr Continue to trend CPK. #KRISTIN on CKD stage III: Patient being hydrated with fluids as above. Baseline creatinine is usually 1.5-1.9. CR is down to 1.26. Resolved. #Mild hyperkalemia: Resolved. #Hyponatremia: sodium is 130 today. Being hydrated with D10 NS. will monitor. If it trendds any lower, will get further workup with urine electrolytes and osmolality #Carnitine palmitoyl transferred II deficiency Patient on triheptanoin and tizanidine. To follow-up with her sheet metal contractor on outpatient basis #Chronic respiratory failure due to COPD: On baseline 4 L of oxygen. Breathing treatments bronchodilators. #History of hypothyroidism: This is likely result of thyroid cancer for which she had resection. On Synthroid #Hypertension: On nifedipine and metoprolol. IV hydralazine as needed #Hyperlipidemia: Statins held due to acute rhabdomyolysis. Will resume when rhabdomyolysis resolves #Nonobstructive CAD: On aspirin and metoprolol. Lisinopril and statin on hold. #Anxiety and depression: On Cymbalta and doxepin #History of polyclonal gammopathy: Follows with oncology and noted to have persistently elevated kappa and lambda light chains and serum and urine proteins on testing. To follow-up with oncology on outpatient basis #GERD: On PPI #Morbid obesity: BMI is 40.6. Complicates acute care, expected recovery and prognosis DVT prophylaxis: Heparin Disposition: for likely dc home tomorrow once CPK is less than 1000. Charges/Coding Visit Charges Inpatient E&M: 71204 Subs Hosp L2
[2024-06-16] MEDS: [UNRECOGNIZED DRUG - OTHER] 166 KCAL PO ×2 (09:23→17:13)
[2024-06-16] MEDS: DULoxetine Hcl 60 MG Capsule PO (09:24)
[2024-06-16] MEDS: NIFEdipine 30 MG Tablet PO (09:24)
[2024-06-16] MEDS: Pantoprazole Sodium 40 MG Tablet PO (09:24)
[2024-06-16] MEDS: Aspirin E.C. 81 MG Tablet PO (09:25)
[2024-06-16] MEDS: Heparin Injection (Vial) 5,000 UNIT/ML VIAL 5000 UNIT SC ×2 (09:25→21:08)
[2024-06-16] MEDS: Polyethylene Glycol 3350 17 GM PACKET PO (09:25)
[2024-06-16] MEDS: Ferrous Sulfate 325 MG Tablet PO (09:25)
[2024-06-16] MEDS: Metoprolol Tartrate 25 MG Tablet 75 MG PO ×2 (09:25→21:07)
[2024-06-16 11:44] LABS: Bedside Glucose 103 mg/dL (74-106)
[2024-06-16 17:51] LABS: Bedside Glucose 123 mg/dL (74-106)
[2024-06-16] MEDS: Budesonide Respules 0.5 MG/2 ML AMPUL.NEB. INHALATION (19:36)
[2024-06-16] MEDS: DOXEPIN HCL 50 MG CAPSULE 100 MG PO (21:07)
[2024-06-16] MEDS: Levothyroxine 175 MCG Tablet PO (21:07)
[2024-06-16 21:49] LABS: Bedside Glucose 123 mg/dL (74-106)
[2024-06-17] MEDS: Dextrose 10%-Water 250 ML 200 ML IV ×6 (00:50→09:15)
[2024-06-17 03:00] VITALS: BP 144/63; PULSE 68; RESP 16; TEMP 36; O2SAT 100
[2024-06-17] MEDS: levOCARNitine 330 MG TABLET PO ×2 (03:58→13:34)
[2024-06-17 04:02] VITALS: BMI 40.8
[2024-06-17 06:32] LABS: Absolute Lymphocyte Count 1.44 X10^3/uL (0.83-4.51); Absolute Neutrophil Count 4.4 X10^3/uL (2.0-7.7); Basophil# 0.08 X10^3/uL; Basophil% 1.2 % (0-1); Eosinophil# 0.28 X10^3/uL; Eosinophils% 4.1 % (0-5); Hematocrit 35.8 % (37-47); Lymphocyte # 1.44 X10^3/ul (0.83-4.51); Lymphocyte % 21.2 % (19-41); Mean Corp Hgb Conc 30.7 g/dL (32-36); Mean Corpuscular Hgb 25.6 pg (27.0-32.0); Mean Corpuscular Volume 83.3 fL (81-99); Mean Platelet Vol. 9.9 fl (6.2-12.0); Monocyte# 0.57 X10^3/uL; Monocyte% 8.4 % (0-10); NRBC Flagged by Analyzer 0 % (0-5); Neutrophil # 4.37 X10^3/uL (2.7-7.7); Neutrophil % 64.4 % (47-70); Platelet Count 235 K/mm3 (150-450); RBC Distribution Width CV 14.1 % (11.6-14.6); RBC Distribution Width SD 42.8 fl (35.1-43.9); White Blood Count 6.8 K/mm3 (4.4-11.0)
[2024-06-17 06:53] LABS: Bedside Glucose 141 mg/dL (74-106)
[2024-06-17 07:11] VITALS: PULSE 68; RESP 18; O2SAT 99
[2024-06-17] MEDS: Budesonide Respules 0.5 MG/2 ML AMPUL.NEB. INHALATION (07:11)
[2024-06-17 07:17] LABS: Anion Gap 5 (5-15); BUN 9 mg/dL (7-18); BUN/Creat Ratio 7.3 RATIO (10-20); CPK Total, Creatine Kinase 772 U/L (26-192); Calcium,Total 8.7 mg/dL (8.5-10.1); Chloride 93 mmol/L (98-107); Creatinine, Serum 1.24 mg/dL (0.55-1.02); EST Glomerular Filtration Rate 46 mL/min (>60); Est Glom Filt Rate - Afr Amer 56 mL/min (>60); Estimated Creatinine Clearance 55.49 ml/min; Glucose 137 mg/dL (74-106); Sodium Level 124 mmol/L (136-145)
[2024-06-17 08:45] VITALS: BP 144/61; PULSE 69; RESP 18; TEMP 36.6; O2SAT 99
[2024-06-17] MEDS: Ferrous Sulfate 325 MG Tablet PO (09:12)
[2024-06-17] MEDS: [UNRECOGNIZED DRUG - OTHER] 166 KCAL PO ×2 (09:12→12:42)
[2024-06-17 09:40] VITALS: PULSE 76
[2024-06-17] MEDS: DULoxetine Hcl 60 MG Capsule PO (09:40)
[2024-06-17] MEDS: Aspirin E.C. 81 MG Tablet PO (09:40)
[2024-06-17] MEDS: Metoprolol Tartrate 25 MG Tablet 75 MG PO (09:40)
[2024-06-17] MEDS: Heparin Injection (Vial) 5,000 UNIT/ML VIAL 5000 UNIT SC (09:41)
[2024-06-17] MEDS: 0.9% Normal Saline (250mL Bag) 250 ML 999 ML IV (09:48)
[2024-06-17] MEDS: Pantoprazole Sodium 40 MG Tablet PO (09:50)
[2024-06-17] MEDS: NIFEdipine 30 MG Tablet PO (09:51)
[2024-06-17 13:36] VITALS: BP 122/77; PULSE 63; RESP 17; TEMP 36.4; O2SAT 93
[2024-06-17 16:14] LABS: Anion Gap 4 (5-15); BUN 7 mg/dL (7-18); BUN/Creat Ratio 5.3 RATIO (10-20); Calcium,Total 8.9 mg/dL (8.5-10.1); Chloride 95 mmol/L (98-107); Creatinine, Serum 1.31 mg/dL (0.55-1.02); EST Glomerular Filtration Rate 43 mL/min (>60); Est Glom Filt Rate - Afr Amer 52 mL/min (>60); Estimated Creatinine Clearance 52.52 ml/min; Glucose 89 mg/dL (74-106); Potassium 4.6 mmol/L (3.5-5.1); Sodium Level 126 mmol/L (136-145)
--- NOTE | 2024-06-17 16:22 | DS.PCM_ITS ---
Providers Date of Admission: 06/12/24 Date of Discharge: 06/17/24 Primary Care Physician: Dr. Jennifer Gordon MD Reason For Visit: KRISTIN, ACUTE RHABDOMYOLYSIS Diagnosis Discharge Diagnosis (1) Acute renal failure due to rhabdomyolysis: Status: Acute Code(s): N17.9 - Acute kidney failure, unspecified; M62.82 - Rhabdomyolysis Plan # KRISTIN on CKD stage III unclear subtype secondary to rhabdomyolysis?KRISTIN resolved # Paroxysmal rhabdomyolysis/carnitine palmitoyl transferase 2 deficiency # Hyponatremia # Hypothyroidism # Hypotension # Anxiety and depression # GERD # History of polyclonal gammopathy # History of COPD/chronic hypoxic respiratory failure on 4 L nasal cannula nightly and with activity Medications at Discharge Home Medications Disability Placard #1 ea 02/07/23 aspirin 81 mg tablet,delayed release (Adult Low Dose Aspirin) 81 mg PO DAILY heart health 04/18/23 cholecalciferol (vitamin D3) 50 mcg (2,000 unit) capsule 50 mcg PO DAILY vitamin 04/18/23 ferrous sulfate 325 mg (65 mg iron) tablet 325 mg PO DAILY 04/18/23 levocarnitine 330 mg tablet 330 mg PO TID vitamin 04/18/23 doxepin 100 mg capsule 100 mg PO QHS mental health #30 caps 11/28/23 tizanidine 4 mg tablet See Rx Instructions .Route .COMPLEX spasms #120 tabs 11/28/23 fluticasone fur. 200 mcg-umeclid 62.5 mcg-vilant 25 mcg inhalat.powder (Trelegy Ellipta) 1 inh inhalation DAILY breathing #3 ea 02/12/24 compr.stocking,thigh,short,lrg #24 ea 02/29/24 lovastatin 10 mg tablet 10 mg PO QPM cholesterol #90 tabs 03/06/24 lisinopril 10 mg tablet 10 mg PO DAILY blood pressure #90 tabs 04/16/24 omeprazole 40 mg capsule,delayed release 40 mg PO DAILY #90 caps 05/28/24 duloxetine 60 mg capsule,delayed release 60 mg PO DAILY mental health #90 caps 06/03/24 metoprolol tartrate 100 mg tablet 100 mg PO BID blood pressure #180 tabs 06/06/24 nifedipine 30 mg tablet,extended release 30 mg PO DAILY blood pressure #90 tabs 06/06/24 levothyroxine 175 mcg tablet 175 mcg PO DAILY thyroid 06/10/24 triheptanoin 8.3 kcal/mL oral liquid (Dojolvi) 166 kcal PO BID 06/12/24 Hospital Course Summary of Care Provided Minutes Spent on Discharge: 25 Hospital Course: 64-year-old female history of anxiety, COPD on 4 L nasal cannula nightly and with activity, hypothyroidism, carnitine pulm toilet transfers to [facility] with paroxysmal rhabdomyolysis who presented to [facility] ED 06/12/2024 for several days of poor oral intake resulting in significant muscle pain and debility. Was found to have potassium of 5.2, creatinine 2.35 and CK of 1300, she was admitted and started on IV fluids. Patient slowly improved with conservative measures and fluids, did have downtrend in sodium but suspect this was largely due to multiple days of D5 water, this was held and small bolus of normal saline given and sodium improved to 126, patient asymptomatic, she has follow-up with her physician tomorrow and feel it is reasonable to discharge her and have her follow-up for repeat labs and monitoring. Date of discharge patient feels markedly improved, very minimal aching in shoulders but overall symptoms otherwise resolved and no new acute complaints. Patient comfortable with plan for DC and close follow-up. Discharged home in stable condition Physical Exam Narrative General: Alert, oriented, no apparent distress HEENT: Atraumatic, normocephalic Eyes: Anicteric, normal conjunctiva, extraocular movements grossly intact Neck: Supple Respiratory: Clear to auscultation bilaterally, normal respiratory effort Cardiovascular: Regular rate GI: Soft, nontender, nondistended Extremities: No edema Musculoskeletal: Moving all extremities Neuro: No overt focal neurological deficits Skin: No rashes appreciated Psych: Cooperative Weight / BMI Weight Weight: 111.4 kg Body Mass Index (BMI) 40.8 ABG / Lab / Microbiology Data 06/17/24 05:59 06/17/24 14:55 Laboratory: Laboratory Results - last 24 hr 06/16/24 17:10: POC Glucose 123 H 06/16/24 21:06: POC Glucose 123 H 06/17/24 05:59: WBC 6.8, RBC 4.30, Hgb 11.0 L, Hct 35.8 L, MCV 83.3, MCH 25.6 L, MCHC 30.7 L, RDW Std Deviation 42.8, RDW Coeff of Esvin 14.1, Plt Count 235, MPV 9.9, Immature Gran % (Auto) 0.700, Neut % (Auto) 64.4, Lymph % (Auto) 21.2, [place] % (Auto) 8.4, Eos % (Auto) 4.1, Baso % (Auto) 1.2 H, Absolute Neuts (auto) 4.4, Absolute Lymphs (auto) 1.44, Nucleated RBC % 0, Sodium 124 L, Potassium 4.0, C hloride 93 L, Carbon Dioxide 26.0, Anion Gap 5, BUN 9, Creatinine 1.24 H, Estim Creat Clear Calc 55.49, Est GFR (MDRD) Af Amer 56 L, Est GFR (MDRD) Non-Af 46 L, BUN/Creatinine Ratio 7.3 L, Glucose 137 H, Calcium 8.7, Total Creatine Kinase 772 H 06/17/24 06:20: POC Glucose 141 H 06/17/24 14:55: Sodium 126 L, Potassium 4.6, Chloride 95 L, Carbon Dioxide 27.0, Anion Gap 4 L, BUN 7, Creatinine 1.31 H, Estim Creat Clear Calc 52.52, Est GFR (MDRD) Af Amer 52 L, Est GFR (MDRD) Non-Af 43 L, BUN/Creatinine Ratio 5.3 L, Glucose 89, Calcium 8.9 D/C Instructions Discharge Diet: - (DASH diet) Meaningful Use Info Meaningful Use Meaningful Use Diagnoses (Choose all that apply): None applicable Ischemic Stroke Statin Dosing Therapy Reference: STATIN DOSE THERAPY REFERENCE: * Patients > 75 years receive moderate or high dose statin therapy. * Patients 75 years or YOUNGER should receive HIGH intensity statin dose unless contraindicated. You will be required to document reason for non-treatment if statin daily dose does not meet guidelines. HIGH DOSE STATIN THERAPY DAILY Atorvastatin > than or = to 40 mg Rosuvastatin > than or = to 20 mg Amlodipine + Atorvastatin > than or = to 2.5/40 mg Ezetimibe + Simvastatin 10/80 mg Simvastatin 80mg Discharge Plan Admission Admit Date/Time: 06/12/24 20:42 Primary Reason for Your Visit: Recurrent rhabdomyolysis Attending Provider: Joy Wagoner Primary Care Provider: Jennifer Gordon Consulting Providers: Marsha Ng; Aline Yun Instructions Patient Instructions: ED Rhabdomyolysis Additional Instructions / Restrictions: -Would recommend lab work (BMP) to check your sodium in 2 to 3 days through your primary care physician's office. Please call their office upon discharge to obtain order for lab work. -Please follow-up with your physician who manages your recurrent rhabdomyolysis upon discharge -Please follow with your primary care physician upon discharge Discharge Orders/Prescriptions Prescriptions: Continued (DME) Disability Placard See Rx Instructions .Route .MEDSUPPLY Qty: 1 0RF Rx Instructions: Expiration 02/07/2026 tizanidine 4 mg tablet See Rx Instructions .ROUTE .COMPLEX Qty: 120 9RF Rx Instructions: Take 1 tablet orally twice daily and 3 tablets nightly as needed for muscle pain/spasm. doxepin 100 mg capsule 100 mg PO QHS Qty: 30 9RF levocarnitine 330 mg tablet 330 mg PO TID aspirin [Adult Low Dose Aspirin] 81 mg tablet,delayed release (DR/EC) 81 mg PO DAILY cholecalciferol (vitamin D3) 50 mcg (2,000 unit) capsule 50 mcg PO DAILY ferrous sulfate 325 mg (65 mg iron) tablet 325 mg PO DAILY (DME) compr.stocking,thigh,short,lrg Misc See Rx Instructions .Route Qty: 24 0RF Rx Instructions: As directed lisinopril 10 mg tablet 10 mg PO DAILY Qty: 90 3RF Dojolvi 8.3 kcal/mL liquid 166 kcal PO BID levothyroxine 175 mcg tablet 175 mcg PO DAILY Patient Comments: pt has been taking at night Trelegy Ellipta 200-62.5-25 mcg blister with device 1 inh inhalation DAILY Qty: 3 3RF lovastatin 10 mg tablet 10 mg PO QPM Qty: 90 1RF omeprazole 40 mg capsule,delayed release(DR/EC) 40 mg PO DAILY Qty: 90 1RF duloxetine 60 mg capsule,delayed release(DR/EC) 60 mg PO DAILY Qty: 90 1RF metoprolol tartrate 100 mg tablet 100 mg PO BID Qty: 180 3RF Patient Comments: ONLY TAKES 75 MG I BREAK THE TABLETS UP AT HOME nifedipine 30 mg tablet extended release 30 mg PO DAILY Qty: 90 1RF Discontinued hyoscyamine sulfate 0.125 mg tablet 0.125 mg PO 4X/DAY Referrals / Follow Up: Jennifer Gordon MD [Primary Care Provider] - Within 1 Week Disposition Disposition (needs filled in before D/C Order can be placed): Home, Self Care Charges/Coding Visit Charges Inpatient E&M: 67087 Disch Hosp
== END 2024-06-17 17:34 | disposition home or self-care (01) | DRG 558 ==
LOC: ED 20:03 → PCU 21:00
PROVIDERS: Student in an Organized Health Care Education/Training Program; Admitting Provider Family Medicine; Emergency Provider Emergency Medicine; PCP Internal Medicine; Visit Provider Internal Medicine
DX: M62.82 Rhabdomyolysis (principal); N17.9 Acute kidney failure, unspecified; J96.11 Chronic respiratory failure with hypoxia; E71.314 Muscle carnitine palmitoyltransferase deficiency; E87.1 Hypo-osmolality and hyponatremia; Z68.41 Body mass index [BMI] 40.0-44.9, adult; N18.4 Chronic kidney disease, stage 4 (severe); D89.0 Polyclonal hypergammaglobulinemia; I48.0 Paroxysmal atrial fibrillation; E86.0 Dehydration; J44.9 Chronic obstructive pulmonary disease, unspecified; D50.9 Iron deficiency anemia, unspecified; I12.9 Hypertensive chronic kidney disease with stage 1 through stage 4 chronic kidney disease, or unspecified chronic kidney disease; E89.0 Postprocedural hypothyroidism; F32.A Depression, unspecified; E66.01 Morbid (severe) obesity due to excess calories; E87.5 Hyperkalemia; E78.5 Hyperlipidemia, unspecified; K21.9 Gastro-esophageal reflux disease without esophagitis; I25.10 Atherosclerotic heart disease of native coronary artery without angina pectoris; F41.9 Anxiety disorder, unspecified; K59.09 Other constipation; R62.7 Adult failure to thrive; Z99.81 Dependence on supplemental oxygen; Z79.82 Long term (current) use of aspirin; Z79.51 Long term (current) use of inhaled steroids; Z79.890 Hormone replacement therapy; Z87.891 Personal history of nicotine dependence
CPT/HCPCS: 36415; 74022; 80048; 80053; 81001; 82550; 82962; 83735; 84100; 85025; 93005; 94640; 94668; 96360; 97162; 97530; 97802; 99283; J7030; J7050; A4216

== ENCOUNTER → 2024-07-02 | Outpatient (CLI) | payer MEDICARE, MEDICAID, SELFPAY ==
[2024-07-02 15:43] LABS: ALB/GLOB Ratio 0.7 RATIO (0.9-2.4); AST(SGOT) 21 U/L (15-37); Alanine Aminotransfer ALT/SGPT 25 U/L (13-56); Albumin, Serum 3.3 g/dL (3.2-5.0); Alkaline Phosphatase 78 U/L (45-117); Anion Gap 4 (5-15); BUN 40 mg/dL (7-18); BUN/Creat Ratio 20.8 RATIO (10-20); CPK Total, Creatine Kinase 166 U/L (26-192); Calcium,Total 9.4 mg/dL (8.5-10.1); Chloride 100 mmol/L (98-107); Creatinine, Serum 1.92 mg/dL (0.55-1.02); EST Glomerular Filtration Rate 28 mL/min (>60); Est Glom Filt Rate - Afr Amer 34 mL/min (>60); Globulin 4.5 g/dL (2.2-4.2); Glucose 99 mg/dL (74-106); Potassium 5.6 mmol/L (3.5-5.1); Protein, Total 7.8 g/dL (6.4-8.2); Sodium Level 133 mmol/L (136-145)
[2024-07-02 16:34] LABS: Hemoglobin A1c 6.1 % (3.8-5.6)
== END | disposition home or self-care (01) ==
LOC: BIMLAB 13:55
PROVIDERS: PCP Internal Medicine; Referring Provider Nurse Practitioner; Visit Provider Nurse Practitioner
DX: R73.03 Prediabetes (principal); M62.82 Rhabdomyolysis
CPT/HCPCS: 36415; 80053; 82550; 83036

== ENCOUNTER 2025-01-01 15:31 | Emergency (ER) | payer MEDICARE, MEDICAID, SELFPAY ==
[2025-01-01 15:33] VITALS: BP 164/111; PULSE 101; RESP 18; TEMP 36.4; O2SAT 95; BMI 36.6
[2025-01-01] MEDS: HYDROcodone Bitartrate/Apap 5/325 Tablet PO (16:36)
--- NOTE | 2025-01-01 16:39 | EX.ED.DYSGE1 ---
HPI History of Present Illness Chief Complaint: Other, Pain/Inj Detail of Chief Complaint: Left lateral neck pain for a week. No trauma. Informant: patient Onset/Context/Timing Onset: Days Context: Gradual Onset Timing: Continuous Current Severity: Moderate Maximum Severity: Moderate Narrative Narrative: 64-year-old female known degenerative disc disease, COPD, CAD, cervical radiculopathy, CKD and hypertension. Uses the muscle relaxant Zanaflex at home. States about a week ago she awoke with increasing pain in her left lateral neck. Denies any weakness to her arm. Denies any fall or trauma. No fever. In the past she was seen for this and told that she was not a candidate for surgery. She has appointment to see Dr. Reardon of spine this coming Monday. Prior similar symptoms: Yes Recent Illness/Hospitalization: Yes [facility] Medical History Myalgia Neck pain Low back pain Anxiety Depression Osteoporosis Smoker On home oxygen therapy COPD (chronic obstructive pulmonary disease) Hypertension Hx of ventricular tachycardia COPD (chronic obstructive pulmonary disease) Chronic hypoxemic respiratory failure Polyclonal gammopathy Bence Davila protein present in urine Obesity Nonsustained ventricular tachycardia Coronary artery disease Syncope Palpitations Thyroid cancer Syncope and collapse Essential hypertension Fatigue Cervical radiculopathy Smoking greater than 30 pack years Hypoxia Chronic diarrhea Recurrent falls Fatty liver FELISA (obstructive sleep apnea) CKD (chronic kidney disease) stage 4, GFR 15-29 ml/min Acquired hypothyroidism History of vitamin D deficiency Peripheral arterial disease Vertigo Polyneuropathy Insomnia Carnitine palmitoyltransferase II deficiency Vision problems Thyroid cancer GERD (gastroesophageal reflux disease) Osteoarthritis Hypothyroid Neuropathy Kidney disease Hypertension History of emotional problems Chronic bronchitis Home Medications ?Medication ?Instructions ?Recorded ?Last Taken ?Type Disability Rogeliomadeleine #1 ea 02/07/23 Unknown Rx aspirin 81 mg tablet,delayed 81 mg PO DAILY heart health 04/18/23 06/12/24 History release (Adult Low Dose Aspirin) cholecalciferol (vitamin D3) 50 50 mcg PO DAILY vitamin 04/18/23 06/12/24 History mcg (2,000 unit) capsule ferrous sulfate 325 mg (65 mg 325 mg PO DAILY 04/18/23 06/12/24 History iron) tablet levocarnitine 330 mg tablet 330 mg PO TID vitamin 04/18/23 06/12/24 History compr.stocking,thigh,short,lrg #24 ea 02/29/24 Unknown Rx metoprolol tartrate 100 mg tablet 100 mg PO BID blood pressure #180 06/06/24 06/12/24 Rx tabs nifedipine 30 mg tablet,extended 30 mg PO DAILY blood pressure #90 06/06/24 06/12/24 Rx release tabs triheptanoin 8.3 kcal/mL oral 166 kcal PO BID 06/12/24 06/12/24 History liquid (Dojolvi) lisinopril 20 mg tablet 20 mg PO QDAY 07/02/24 Unknown History rifaximin 550 mg tablet (Xifaxan) 550 mg PO TID 07/02/24 Unknown History doxepin 100 mg capsule 100 mg PO QHS #30 caps 08/27/24 Unknown Rx lovastatin 10 mg tablet 10 mg PO QPM cholesterol #90 tabs 10/17/24 Unknown Rx tizanidine 4 mg tablet See Rx Instructions .Route 10/22/24 Unknown Rx .COMPLEX spasms #150 tabs fluticasone fur. 200 mcg-umeclid 1 inh inhalation DAILY breathing 11/07/24 Unknown Rx 62.5 mcg-vilant 25 mcg #3 ea inhalat.powder (Trelegy Ellipta) omeprazole 40 mg capsule,delayed 40 mg PO DAILY for acid reflux #90 11/22/24 Unknown Rx release caps duloxetine 60 mg capsule,delayed 60 mg PO DAILY mental health #90 11/29/24 Unknown Rx release caps levothyroxine 175 mcg tablet 175 mcg PO DAILY thyroid #90 tabs 11/29/24 Unknown Rx oxycodone-acetaminophen 5 mg-325 1 tab PO Q8H PRN pain 5 days #12 01/01/25 Unknown Rx mg tablet (Percocet) tabs Allergy/AdvReac Type Severity Reaction Status Date / Time Penicillins Allergy Unknown Unknown Verified 01/01/25 15:33 Family History Mother CVA (cerebral vascular accident) Heart disease Arthritis Lupus Father Myocardial infarction Hypertension Brother Colon cancer Brother Colon cancer Brother Cancer stomach Sister Seizures Grandfather Myocardial infarction Grandmother Myocardial infarction Surgical History History of cholecystectomy Cataract extraction status History of surgical procedure H/O thyroidectomy S/P cholecystectomy History of surgical procedure H/O wrist surgery History of repair of rotator cuff History of hysterectomy Hx of total knee replacement Social History household members: none housing: apartment current occupational status: unemployed Smoking Status: Former smoker quit date: 07/10/13 pack-years: 20 Tobacco: How many years used: 20 Electronic Cigarette Use: not used second hand exposure: No alcohol intake: never substance use type: marijuana and other details: THC gummy caffeine: Yes Type: coffee Number of servings: 2 what type of physical activity do you participate in: none seatbelt use: always do you feel safe at home: Yes ROS ROS ED ROS Narrative Denies recent illness. Atraumatic neck pain. Constitutional Constitutional ED: Denies chills or fever(s) Eyes Eyes: Denies blurry vision ENT ENT ED: Denies ear pain Cardiovascular Cardiovascular: Denies chest pain Respiratory/Chest Respiratory/Chest: Denies cough or dyspnea Gastrointestinal Gastrointestinal: Denies abdominal pain Genitourinary Genitourinary ED: Denies dysuria or hematuria Musculoskeletal Musculoskeletal: Reports neck pain; Denies arthralgias, back pain or myalgias Integumentary Denies abscess or Abrasions Neurologic Neurologic: Denies headache(s) Psychiatric Psychiatric: Denies anxiety Endocrine Endocrinology: Denies cold intolerance or heat intolerance Hematologic/Lymphatic Hematologic/Lymphatic: Reports none Allergic/Immunologic Allergic/Immunologic ED: Denies mouth swelling, tongue swelling or urticaria EXAM Physical Exam Narrative Exam Narrative: 60-year-old female sitting upright in a chair in the hallway due to volume. Vital signs are stable she is afebrile she does not look septic or toxic. Currently no distress. Laying left lateral neck pain. No family is with her. H EENT exam pupils round react light extra motions are intact. No facial droop. Normal speech. Neck she has left lateral soft tissue tenderness consistent myofascial spasm. Also pain over her cervical spine. No trauma. Trachea midline. Back otherwise nontender. Lungs clear. Heart regular rhythm rate about 100 no murmur. Chest wall and ribs nontender. Abdomen soft nontender. 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 Equal sensation bilaterally. Normal dorsi plantarflexion lower extremities. Normal sensation. Neurologically she is awake and alert with no focal motor or sensory deficits. Const Vital Signs: 01/01/25 15:33 01/01/25 16:37 Temperature 97.6 F L Temperature Source Temporal Pulse Rate 101 H Respiratory Rate 18 Respiratory Effort Normal Respiratory Pattern Normal Blood Pressure 164/111 H Blood Pressure Mean 128 Pulse Ox 95 Oxygen Delivery Method Room Air Positive well nourished and well developed; Negative for obese, cachectic, contractures or unkempt General Appearance ED: well developed and NAD; Negative for unkempt, cachectic, contractures, cyanotic, diaphoretic or pallor Nutritional Appearance: Negative for cachectic or obese HEENT Reports moist mucous membranes Negative for trauma or tenderness Eyes PERRL and EOMs intact bilaterally General Eye ED: Negative for scleral icterus Neck no lymphadenopathy, supple and no JVD Neck Narrative: neck pain left lateral soft tissue tenderness consistent myofascial spasm. General: Negative for tenderness Lymph Lymphatic: Negative for other Chest Wall inspection of chest normal and palpation of chest normal Resp normal respiratory effort and clear to auscultation bilaterally Effort and Inspection: Negative for retractions Auscultation: Negative for rales, rhonchi or wheezes Cardio regular rate, regular rhythm, S1 normal heart sound, S2 normal heart sound and no murmurs GI normal to inspection, nondistended, normoactive bowel sounds, non-tender, non-distended and no masses Palpation: soft; Negative for tender, guarding or rebound tenderness present Back/Spine no CVA tenderness General Back: Negative for CVA tenderness Cervical Spine: Negative for cervical spine tenderness Thoracic Spine / Upper Back: Negative for thoracic spinal tenderness or paraspinal muscle tenderness Lumbar Spine / Lower Back: Negative for lumbar spinal tenderness Extremity normal to inspection General Extremety ED: Negative for edema or tenderness General Extremity: Negative for edema Neuro oriented x3 and CN's II-XII intact bilaterally Sensorium / Orientation: alert; Negative for orientation impaired Motor Exam: strength 5/5 throughout Psych mental status grossly normal Appearance: Negative for unkempt Attitude: No agitated Mood & Affect: Negative for depressed, anxious or tearful Skin no rashes or lesions noted, no wounds and skin turgor normal General Skin Exam: elasticity normal; Negative for jaundice or pallor Lesions: No lesion noted Rashes: No rashes noted Trauma: Negative for abrasion Wounds: Negative for wounds noted MDM MDM MDM Narrative Medical decision making narrative: Six 4-year-old female has known degenerative disc disease of her neck. Denies any fall injury or trauma. For a week she has had muscle spasm left side of her neck with radiculopathy. Normal strength. Normal sensation. She is already on a muscle relaxant at home. She be treated with limited Percocet for pain 12 no refill. Given 1 here. She has appointment to see his spine surgeon on Monday. Discharge Plan Triage Chief Complaint: Other, Pain/Inj ED Provider: Teddy Rust Dx/Rx/DC Orders Clinical Impression: Muscle spasm, CKD (chronic kidney disease), Left cervical radiculopathy, Acute neck pain Instructions: ED Neck Pain, ED Neck Spasm, No Trauma Prescriptions: New oxycodone-acetaminophen [Percocet] 5-325 mg tablet 1 tab PO Q8H PRN (Reason: pain) 5 Days Qty: 12 0RF No Action (DME) Disability Placard See Rx Instructions .Route .MEDSUPPLY Qty: 1 0RF Rx Instructions: Expiration 02/07/2026 levocarnitine 330 mg tablet 330 mg PO TID aspirin [Adult Low Dose Aspirin] 81 mg tablet,delayed release (DR/EC) 81 mg PO DAILY cholecalciferol (vitamin D3) 50 mcg (2,000 unit) capsule 50 mcg PO DAILY ferrous sulfate 325 mg (65 mg iron) tablet 325 mg PO DAILY (DME) compr.stocking,thigh,short,lrg Misc See Rx Instructions .Route Qty: 24 0RF Rx Instructions: As directed Xifaxan 550 mg tablet 550 mg PO TID lisinopril 20 mg tablet 20 mg PO QDAY Dojolvi 8.3 kcal/mL liquid 166 kcal PO BID metoprolol tartrate 100 mg tablet 100 mg PO BID Qty: 180 3RF Patient Comments: ONLY TAKES 75 MG I BREAK THE TABLETS UP AT HOME nifedipine 30 mg tablet extended release 30 mg PO DAILY Qty: 90 1RF doxepin 100 mg capsule 100 mg PO QHS Qty: 30 3RF lovastatin 10 mg tablet 10 mg PO QPM Qty: 90 1RF tizanidine 4 mg tablet See Rx Instructions .ROUTE .COMPLEX Qty: 150 2RF Rx Instructions: Take 1 tablet orally twice daily and 3 tablets nightly as needed for muscle pain/spasm. Trelegy Ellipta 200-62.5-25 mcg blister with device 1 inh inhalation DAILY Qty: 3 3RF omeprazole 40 mg capsule,delayed release(DR/EC) 40 mg PO DAILY Qty: 90 1RF levothyroxine 175 mcg tablet 175 mcg PO DAILY Qty: 90 0RF Patient Comments: pt has been taking at night duloxetine 60 mg capsule,delayed release(DR/EC) 60 mg PO DAILY Qty: 90 0RF Primary Care Provider: Jennifer Gordon Referrals: Jennifer Gordon MD [Primary Care Provider] - As Needed Bradley Reardon MD [Med Staff - Active Staff] - Keep Edd appointment Activity Restrictions/Additional Instructions: Your muscle spasms in your neck and also probably radiculopathy from degenerative disc disease. Hot shower, warm bath, massage. Continue your muscle relaxant at home. Limited Percocet for pain. Keep your appointment to see Dr. Reardon the spine surgeon. Print Language: Tongan Disposition Disposition: Home, Self Care
[2025-01-01 16:41] VITALS: BP 128/79; PULSE 85; RESP 19; TEMP 36.6; O2SAT 94
== END 2025-01-01 16:58 | disposition home or self-care (01) ==
PROVIDERS: Emergency Provider Emergency Medicine; PCP Internal Medicine; Visit Provider Emergency Medicine
DX: M62.838 Other muscle spasm (principal); N18.4 Chronic kidney disease, stage 4 (severe); J44.9 Chronic obstructive pulmonary disease, unspecified; I25.10 Atherosclerotic heart disease of native coronary artery without angina pectoris; I12.9 Hypertensive chronic kidney disease with stage 1 through stage 4 chronic kidney disease, or unspecified chronic kidney disease; M54.12 Radiculopathy, cervical region; Z87.891 Personal history of nicotine dependence; F12.90 Cannabis use, unspecified, uncomplicated; Z90.710 Acquired absence of both cervix and uterus; Z90.49 Acquired absence of other specified parts of digestive tract; E03.9 Hypothyroidism, unspecified
CPT/HCPCS: 99282

== ENCOUNTER → 2025-01-13 | Outpatient (CLI) | payer MEDICARE, MEDICAID, SELFPAY ==
--- NOTE | 2025-01-13 15:39 | MRI_ITS ---
PROCEDURE: SPINE LUMBAR (ROUTINE) (MRISPL), 01/13/2025 REASON FOR EXAM: PATIENT HAS LOW BACK PAIN AND IMPAIRED MOBILITY TECHNIQUE: Multisequence multiplanar MR of the lumbar spine was performed without IV contrast. COMPARISON: None FINDINGS: Vertebral body heights are preserved. Degenerative type marrow signal changes, greatest from L1-L3. Trace likely degenerative retrolisthesis at L1-L2 and L2-L3. Mild lumbar levoscoliosis with apex at L2-L3. Conus medullaris terminates normally at the L1-L2 level. Crowding of nerve roots of the cauda equina related to the below.. T12-L1: Disc bulging, greatest in the lateral regions with disc/osteophyte complexes. No significant spinal canal or foraminal stenosis. L1-2: Dzsomzji-qh-zpepdc loss of disc height with diffuse disc bulging and anterior disc/osteophyte complex. No significant spinal canal or foraminal stenosis. L2-3: Diffuse disc bulging, asymmetric to the right with a superimposed right lateral disc protrusion, with xyuqiuoq-ff-wbujqu loss of disc height. Relative narrowing of the right lateral recess. Mild facet arthropathy. Mild foraminal stenoses bilaterally. L3-4: Prominent diffuse disc bulging with moderate loss of disc height and lateral/anterior disc/osteophyte complexes. Small superimposed central disc protrusion. Dyegoass-ch-mmjaqd spinal canal stenosis with near-complete effacement of CSF. Facet arthropathy. Mild ligamentum flavum hypertrophy. Moderate right and mild/moderate left foraminal stenoses. Narrowing of bilateral lateral recesses. L4-5: Skdtvswj-sd-krwayt loss of disc height with diffuse disc bulging, asymmetric to the right. Small superimposed central and left paracentral as well as right lateral disc protrusions. Facet arthropathy. Mild ligamentum flavum hypertrophy. Nmzowfoo-ug-tmzlba spinal canal stenosis with virtually complete effacement of CSF. Wptbsbcf-ud-sjkjac right and moderate left foraminal stenoses. Effacement of wtftd-otwupww-ieuo-left lateral recesses L5-S1: Bulging with superimposed left mild diffuse disc foraminal and lateral disc protrusion contacting the exiting nerve root. Mild ligamentum flavum hypertrophy. No significant focal spinal canal stenosis. Facet arthropathy. Ejtyggqs-qj-cwpidp left foraminal stenosis. Other: Focal narrowing of the spinal canal at T10-T11, not well evaluated as this is above the field of view of axial imaging. This may be related to a synovial cyst or facet arthropathy given the configuration on sagittal images. 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 Mild ectasia of the abdominal aorta to 2.4 x 2.4 cm. Tiny presumed renal cysts, incompletely characterized. MRI/Spine Lumbar (Routine) IMPRESSION: 1. Multilevel spondylosis with variable both spinal canal and foraminal stenose s up to moderate/severe as detailed. 2. Additional description as above. Reading Location: [id number]
== END | disposition home or self-care (01) ==
LOC: MRI 15:34
PROVIDERS: PCP Internal Medicine; Referring Provider Psychiatry & Neurology Neurology; Visit Provider Psychiatry & Neurology Neurology
DX: M54.50 Low back pain, unspecified (principal)
CPT/HCPCS: 72148

== ENCOUNTER → 2025-02-03 | Outpatient (CLI) | payer MEDICARE, MEDICAID, SELFPAY ==
--- NOTE | 2025-02-03 08:41 | MRI_ITS ---
PROCEDURE: SPINE CERVICAL (ROUTINE) 02/03/2025 REASON FOR EXAM: PAIN TECHNIQUE: Noncontrast cervical spine MRI. Coronal and Sagittal reconstruction series were provided. COMPARISON: None. FINDINGS: VERTEBRAE: No acute fracture or pathologic marrow replacement. VERTEBRAL ALIGNMENT: Normal, including the craniocervical junction and cervicothoracic junction. No spondylolisthesis. There is preservation of the normal cervical lordosis. CERVICAL SPINAL CORD: Unremarkable in signal and morphology. C2/C3: Normal disc height and morphology. Normal spinal canal and neuroforamina. C3/C4: Normal disc height and morphology. Bilateral facet joint hypertrophy and disc osteophyte produces mild bilateral foraminal stenosis. C4/C5: Loss of disc height. Broad-based disc osteophyte formation produces moderately severe right foraminal narrowing and moderate left foraminal narrowing. No significant central stenosis. C5/C6: Loss of disc height. Disc-osteophyte formation produces mild central and moderate bilateral foraminal stenosis. C6/C7: Mild loss disc height. Disc-osteophyte formation present. Mild central and moderate left foraminal stenosis. C7/T1: Normal disc height and morphology. Normal spinal canal and neuroforamina. NECK SOFT TISSUES: No prevertebral soft tissue swelling. There is no cervical adenopathy. MRI/Spine Cervical (Routine) IMPRESSION: Degenerative disc disease and cervical spondylosis with multilevel central and foraminal stenoses as above. Findings most severe at the C5-6 level. Reading Location[facility]
== END | disposition home or self-care (01) ==
LOC: MRI 15:24
PROVIDERS: PCP Internal Medicine; Referring Provider Student in an Organized Health Care Education/Training Program; Visit Provider Student in an Organized Health Care Education/Training Program
DX: G95.9 Disease of spinal cord, unspecified (principal); M54.12 Radiculopathy, cervical region
CPT/HCPCS: 72141

== ENCOUNTER → 2025-02-25 | Outpatient (CLI) | payer MEDICARE, MEDICAID, SELFPAY ==
--- NOTE | 2025-02-25 16:43 | MRI_ITS ---
EXAM: MRI right shoulder CLINICAL HISTORY: Shoulder pain, rotator cuff tear COMPARISON: X-ray 01/21/2025 TECHNIQUE: Multiplanar spin echo magnetic resonance images of the right shoulder and a [place] strength magnet FINDINGS: Mild supraspinatus and infraspinatus tendinosis and peritendinitis but no macro tear. Mild subacromial/subdeltoid bursitis. Surgical anchor in the anterior aspect of the humeral head possibly consistent with prior repair of the subscapularis tendon which appears intact. No muscular atrophy. Small joint effusion. No labral tear. Long head of the biceps tendon is intact. Mild acromioclavicular joint arthrosis. MRI/Upper Ext Joint Only(Routine) IMPRESSION: Mild supraspinatus and infraspinatus tendinosis and peritendinitis but no macro tear or muscular atrophy. Suspect prior repair of the subscapularis tendon which appears intact. Mild subacromial/subdeltoid bursitis. Small joint effusion. Mild acromioclavicular joint arthrosis. Reading Location: [id number]
== END | disposition home or self-care (01) ==
LOC: MRI 16:05
PROVIDERS: PCP Internal Medicine; Referring Provider Orthopaedic Surgery Sports Medicine; Visit Provider Orthopaedic Surgery Sports Medicine
DX: M25.511 Pain in right shoulder (principal)
CPT/HCPCS: 73221

== ENCOUNTER → 2025-04-16 | Outpatient (CLI) | payer MEDICARE, MEDICAID, SELFPAY ==
[2025-04-16 14:26] LABS: Bacteria 0 SEEN /hpf (None Seen); Mucous, Urine 0 SEEN /hpf (<or=2+)
[2025-04-16 15:57] LABS: Absolute Lymphocyte Count 1.98 X10^3/uL (0.83-4.51); Absolute Neutrophil Count 7.8 X10^3/uL (2.0-7.7); Basophil# 0.11 X10^3/uL; Eosinophil# 0.24 X10^3/uL; Eosinophils% 2.2 % (0-5); Hematocrit 34.9 % (37-47); Hemoglobin 10.5 g/dL (12.0-15.0); Lymphocyte # 1.98 X10^3/ul (0.83-4.51); Lymphocyte % 18.1 % (19-41); Mean Corp Hgb Conc 30.1 g/dL (32-36); Mean Corpuscular Hgb 25.9 pg (27.0-32.0); Mean Corpuscular Volume 86.2 fL (81-99); Mean Platelet Vol. 10.5 fl (6.2-12.0); Monocyte# 0.77 X10^3/uL; NRBC Flagged by Analyzer 0 % (0-5); Neutrophil # 7.79 X10^3/uL (2.7-7.7); Neutrophil % 71.2 % (47-70); Platelet Count 347 K/mm3 (150-450); RBC Distribution Width CV 15.2 % (11.6-14.6); RBC Distribution Width SD 47.7 fl (35.1-43.9); Red Blood Count 4.05 M/mm3 (4.2-5.4); White Blood Count 10.9 K/mm3 (4.4-11.0)
[2025-04-16 16:05] LABS: Color, Urine Straw (Yellow); Glucose, Dipstick Normal (Normal); Ketone-Dipstick Negative (Negative); Leukocyte Esterase-Dipstick Negative /ul (Negative); Nitrite-Dipstick Negative (Negative); Occult Blood-Urine Negative /ul (Negative); Protein-Dipstick 100 mg/dl (Negative); Urine Bilirubin Dipstick Negative (Negative); Urine Clarity Clear (Clear); Urine Urobilinogen Normal (Normal); Urine pH 6.5 (5.0 - 8.0)
[2025-04-16 17:23] LABS: Red Blood Cells-Urine 0-5 SEEN /hpf (0-5); Squamous Epithelial Cells - UA 0-5 SEEN /hpf (5-10); White Blood Cells 0-5 SEEN /hpf (0-5)
[2025-04-16 17:34] LABS: ALB/GLOB Ratio 1.3 RATIO (0.9-2.4); AST(SGOT) 27 U/L (<=31); Alanine Aminotransfer ALT/SGPT 27 U/L (<=34); Albumin, Serum 4.2 g/dL (3.4-4.8); Alkaline Phosphatase 80 U/L (35-104); Anion Gap 10 (5-15); BUN 20 mg/dL (4-19); BUN/Creat Ratio 13.9 RATIO (10-20); Calcium,Total 9.5 mg/dL (7.6-11.0); Chloride 97 mmol/L (98-108); Cholesterol 214 mg/dL (<=200); Creatinine, Serum 1.47 mg/dL (0.70-1.20); EST Glomerular Filtration Rate 39 (>60); Globulin 3.3 g/dL (2.2-4.2); Glucose 98 mg/dL (70-99); High Density Lipoprotein 45 mg/dL; Low Density Lipoprotein Calc. 137 mg/dL; Potassium 5.6 mmol/L (3.3-5.1); Protein, Total 7.5 g/dL (5.9-8.4); Sodium Level 135 mmol/L (133-145); Total Bilirubin 0.17 mg/dL (0.00-1.30); Triglycerides 160 mg/dL; Very Low Density Lipoprotein 32 mg/dL (5-40); cholesterol:hdl ratio screen 4.76
[2025-04-16 18:33] LABS: Thyroid Stim Hormone (TSH) 0.566 uIU/mL (0.300-4.200)
[2025-04-16 19:04] LABS: Hemoglobin A1c 5.7 % (<=5.6)
== END | disposition home or self-care (01) ==
LOC: BIMLAB 14:12
PROVIDERS: PCP Internal Medicine; Referring Provider Internal Medicine; Visit Provider Internal Medicine
DX: E89.0 Postprocedural hypothyroidism (principal); N18.4 Chronic kidney disease, stage 4 (severe); R73.03 Prediabetes; R82.998 Other abnormal findings in urine
CPT/HCPCS: 36415; 80053; 80061; 81001; 83036; 84443; 85025

== ENCOUNTER → 2025-04-17 | Outpatient (CLI) | payer MEDICARE, MEDICAID, SELFPAY ==
--- NOTE | 2025-04-17 18:36 | CT_ITS ---
PROCEDURE: LOW DOSE CT LUNG SCREENING 04/17/2025 REASON FOR EXAM: FORMER SMOKER TECHNIQUE: Low Dose CT Lung screening without contrast. Coronal and Sagittal reconstruction series were provided. One or more dose reduction techniques were used (e.g., Automated exposure control, adjustment of the mA and/or kV according to patient size, use of iterative reconstruction technique). REFERENCE LINK: [facility] Lung-RADS RADIATION DOSE SUMMARY: CTDlvol: 16.28 mGy DLP: 562.62 mGycm COMPARISON: Prior study dated July 03, 2023. FINDINGS: PULMONARY NODULES: (Only nodules >3mm are reported) Nodules described below are on series 1 unless otherwise specified. Pulmonary Nodules: Stable calcified granulomas in the lateral aspect of the right upper lobe. Hardware:None Lymph Nodes:Small mediastinal lymph nodes. Heart and Vasculature:Coronary artery calcifications are noted. Coronary Artery Calcifications: Present Lungs and Airways: Mild scarring in the left upper lobe as well as the posterior aspect of the lingular segment of the left upper lobe. Pleura:No pleural effusion. Upper Abdomen:Unremarkable Bones:Degenerative changes of the thoracic spine. CT/Low Dose CT Lung Screening IMPRESSION: Stable examination. Coronary artery calcification (CAC) is is present Lung-RADS Category: 2 BENIGN (BASED ON IMAGING FEATURES OR INDOLENT BEHAVIOR). RECOMMEND 12-MONTH SCREENING LDCT. Other Significant Findings: None. Reading Location: [id number]
== END | disposition home or self-care (01) ==
LOC: CT 18:29
PROVIDERS: PCP Internal Medicine; Referring Provider Nurse Practitioner Acute Care; Visit Provider Nurse Practitioner Acute Care
DX: F17.210 Nicotine dependence, cigarettes, uncomplicated (principal)
CPT/HCPCS: 71271

== ENCOUNTER → 2025-05-07 | Outpatient (CLI) | payer MEDICARE, MEDICAID, SELFPAY ==
--- NOTE | 2025-05-07 13:09 | US_ITS ---
PROCEDURE: THYROID, 05/07/2025 REASON FOR EXAM: THYROID CANCER FOLLOW UP TECHNIQUE: Grayscale and color Doppler imaging of the thyroidectomy bed was performed. COMPARISON: None FINDINGS: Total thyroidectomy. No definite residual thyroid tissue or other abnormality of the thyroidectomy bed is identified. US/Thyroid IMPRESSION: Total thyroidectomy without definite residual thyroid tissue or other abnormali ty of the thyroidectomy bed. Reading Location: [id number]
--- NOTE | 2025-05-07 13:09 | US_ITS ---
PROCEDURE: THYROID, 05/07/2025 REASON FOR EXAM: THYROID CANCER FOLLOW UP TECHNIQUE: Grayscale and color Doppler imaging of the thyroidectomy bed was performed. COMPARISON: None FINDINGS: Total thyroidectomy. No definite residual thyroid tissue or other abnormality of the thyroidectomy bed is identified. US/Thyroid IMPRESSION: Total thyroidectomy without definite residual thyroid tissue or other abnormali ty of the thyroidectomy bed. Reading Location: [id number]
== END | disposition home or self-care (01) ==
LOC: US 13:05
PROVIDERS: PCP Internal Medicine; Referring Provider Internal Medicine; Visit Provider Internal Medicine
DX: Z85.850 Personal history of malignant neoplasm of thyroid (principal)
CPT/HCPCS: 76536

== ENCOUNTER → 2025-06-24 | Outpatient (CLI) | payer MEDICARE, MEDICAID, SELFPAY | END | disposition home or self-care (01) | LOC: PSN 12:51 | PROVIDERS: PCP Internal Medicine; Referring Provider Nurse Practitioner Family; Visit Provider Nurse Practitioner Family | DX: J44.9 Chronic obstructive pulmonary disease, unspecified (principal) | CPT/HCPCS: 94060; 94726; 94729 ==

== ENCOUNTER → 2025-06-26 | Outpatient (CLI) | payer MEDICARE, MEDICAID, SELFPAY ==
[2025-06-26 17:54] LABS: Hematocrit 35.8 % (37-47); Hemoglobin 11.1 g/dL (12.0-15.0); Immature Granulocytes Count 0.030 X10^3/uL (0.0-0.0); Immature Reticulocyte Fraction 7.70 % (3.00-15.90); Mean Corp Hgb Conc 31.0 g/dL (32-36); Mean Corpuscular Volume 87.1 fL (81-99); Mean Platelet Vol. 10.2 fl (6.2-12.0); NRBC Flagged by Analyzer 0 % (0-5); Platelet Count 332 K/mm3 (150-450); RBC Distribution Width CV 13.9 % (11.6-14.6); RBC Distribution Width SD 44.4 fl (35.1-43.9); Red Blood Count 4.11 M/mm3 (4.2-5.4); Reticulocyte Count 2.20 % (0.5-1.5); White Blood Count 10.4 K/mm3 (4.4-11.0)
[2025-06-26 19:00] LABS: Iron 40 ug/dL (50-170); Iron Binding Capacity,Total 256 ug/dL (250-450); Iron Binding Capacity,Unsat 216 ug/dL (228-428)
[2025-06-26 19:48] LABS: Ferritin 150 ng/mL (22-378); Vitamin B12 472 pg/mL (180-914); Vitamin D,25 Hydroxy 69.4 ng/mL (30-100)
== END | disposition home or self-care (01) ==
LOC: MTLAB 15:29
PROVIDERS: PCP Internal Medicine; Referring Provider Nurse Practitioner Family; Visit Provider Nurse Practitioner Family
DX: D64.9 Anemia, unspecified (principal); E55.9 Vitamin D deficiency, unspecified
CPT/HCPCS: 36415; 82306; 82607; 82728; 83540; 83550; 85025; 85045

== ENCOUNTER → 2025-07-11 | Outpatient (CLI) | payer MEDICARE, MEDICAID, SELFPAY | END | disposition home or self-care (01) | LOC: SL 20:16 | PROVIDERS: PCP Internal Medicine; Referring Provider Nurse Practitioner Family; Visit Provider Nurse Practitioner Family | DX: G47.33 Obstructive sleep apnea (adult) (pediatric) (principal) | CPT/HCPCS: 95810 ==

== ENCOUNTER 2025-07-17 19:04 | Inpatient (IN) | payer MEDICARE, MEDICAID, SELFPAY ==
[2025-07-17 19:06] VITALS: BP 132/77; PULSE 58; RESP 16; TEMP 36.8; O2SAT 97; O2SAT 99; BMI 37.3
[2025-07-17 20:31] VITALS: BP 145/79; PULSE 81
--- NOTE | 2025-07-17 20:52 | EX.ED.DYSGE1 ---
HPI History of Present Illness Chief Complaint: General Illness Detail of Chief Complaint: Flare of CPT II Informant: patient Onset/Context/Timing Onset: Today Context: Sudden Onset Quality: Muscle pain and aches Location: Generalized Current Severity: Mild Maximum Severity: Mild Worsened by: Rare genetic disorder CPT II Relieved by: D10 half-normal saline at 1.5 maintenance Associated Symptoms Associated Symptoms: Problems may develop and will be listed in MDM plan Narrative Narrative: Patient is a 65-year-old woman. She is seen by a community outreach worker at [facility]. She was diagnosed with CPT II. This is a genetic disorder affecting her met embolism of fat and may result in dysrhythmia, rhabdomyolysis, hypoglycemia. Patient had a letter from her community outreach worker that instructed whoever cared for her to order specific tests and to treat with D10 half-normal at 1.5 times maintenance Prior similar symptoms: Yes Recent Illness/Hospitalization: Yes [facility] Medical History Arthrosis of right acromioclavicular joint Tendinosis of right rotator cuff Impingement of right shoulder Right shoulder pain Myalgia Neck pain Low back pain Anxiety Depression Osteoporosis Smoker On home oxygen therapy COPD (chronic obstructive pulmonary disease) Hypertension Hx of ventricular tachycardia COPD (chronic obstructive pulmonary disease) Chronic hypoxemic respiratory failure Polyclonal gammopathy Bence Davila protein present in urine Obesity Nonsustained ventricular tachycardia Coronary artery disease Syncope Palpitations Thyroid cancer Syncope and collapse Essential hypertension Fatigue Cervical radiculopathy Smoking greater than 30 pack years Hypoxia Chronic diarrhea Recurrent falls Fatty liver FELISA (obstructive sleep apnea) CKD (chronic kidney disease) stage 4, GFR 15-29 ml/min Acquired hypothyroidism History of vitamin D deficiency Peripheral arterial disease Vertigo Polyneuropathy Insomnia Carnitine palmitoyltransferase II deficiency Vision problems Thyroid cancer GERD (gastroesophageal reflux disease) Osteoarthritis Hypothyroid Neuropathy Kidney disease Hypertension History of emotional problems Chronic bronchitis Home Medications ?Medication ?Instructions ?Recorded ?Last Taken ?Type Disability Placard #1 ea 02/07/23 Unknown Rx aspirin 81 mg tablet,delayed 81 mg PO DAILY heart health 04/18/23 06/12/24 History release (Adult Low Dose Aspirin) cholecalciferol (vitamin D3) 50 50 mcg PO DAILY vitamin 04/18/23 06/12/24 History mcg (2,000 unit) capsule ferrous sulfate 325 mg (65 mg 325 mg PO DAILY 04/18/23 06/12/24 History iron) tablet levocarnitine 330 mg tablet 330 mg PO TID vitamin 04/18/23 06/12/24 History compr.stocking,thigh,short,lrg #24 ea 02/29/24 Unknown Rx vitamin E (dl, acetate) 45 mg (100 45 mg PO QDAY 01/06/25 Unknown History unit) capsule metoprolol tartrate 100 mg tablet 100 mg PO BID blood pressure #180 02/18/25 Unknown Rx tabs albuterol sulfate 90 mcg/actuation 2 puff inhalation Q6H PRN 04/04/25 Unknown History aerosol inhaler fluticasone fur. 200 mcg-umeclid 1 inh inhalation DAILY breathing 04/04/25 Unknown Rx 62.5 mcg-vilant 25 mcg #3 ea inhalat.powder (Trelegy Ellipta) ipratropium 0.5 mg-albuterol 3 mg 3 ml inhalation Q4-6H PRN 04/04/25 Unknown Rx (2.5 mg base)/3 mL nebulization shortness of breath or wheezing soln #180 mL doxepin 100 mg capsule 100 mg PO QHS #30 caps 04/08/25 Unknown Rx tizanidine 4 mg tablet See Rx Instructions .Route 04/08/25 Unknown Rx .COMPLEX spasms #150 tabs lisinopril 20 mg tablet 10 mg PO QDAY 04/16/25 Unknown History duloxetine 60 mg capsule,delayed 60 mg PO DAILY mental health #90 04/17/25 Unknown Rx release caps nifedipine 30 mg tablet,extended 30 mg PO DAILY blood pressure #90 04/17/25 Unknown Rx release tabs omeprazole 40 mg capsule,delayed 40 mg PO DAILY for acid reflux #90 04/17/25 Unknown Rx release caps levothyroxine 175 mcg tablet 175 mcg PO DAILY thyroid #90 tabs 05/16/25 Unknown Rx albuterol sulfate 2.5 mg/3 mL mg inhalation Q6 PRN wheezing 06/17/25 Unknown History (0.083 %) solution for nebulization roflumilast 250 mcg tablet 250 mcg PO QDAY 4 weeks #28 tabs 06/17/25 Unknown Rx (Daliresp) lovastatin 10 mg tablet 10 mg PO QPM cholesterol #90 tabs 07/17/25 Unknown Rx Allergy/AdvReac Type Severity Reaction Status Date / Time Penicillins Allergy Unknown Unknown Verified 06/26/25 14:04 [id number] (From AdvReac Severe Diarrhea Verified 06/26/25 14:04 Ajovy Syringe) vancomycin AdvReac Rash Verified 06/26/25 14:04 Family History Mother CVA (cerebral vascular accident) Heart disease Arthritis Lupus Father Myocardial infarction Hypertension Brother Colon cancer Brother Colon cancer Brother Cancer stomach Sister Seizures Grandfather Myocardial infarction Grandmother Myocardial infarction Surgical History History of cholecystectomy Cataract extraction status History of surgical procedure H/O thyroidectomy S/P cholecystectomy History of surgical procedure H/O wrist surgery History of repair of rotator cuff History of hysterectomy Hx of total knee replacement Social History household members: family housing: apartment current occupational status: unemployed Smoking Status: Former smoker quit date: 07/10/13 pack-years: 20 Tobacco: How many years used: 20 Electronic Cigarette Use: not used second hand exposure: No alcohol intake: never substance use type: marijuana and other details: THC gummy caffeine: Yes Type: coffee Number of servings: 2 what type of physical activity do you participate in: none seatbelt use: always do you feel safe at home: Yes ROS ROS ED Constitutional Constitutional ED: Denies chills, fever(s) or subjective Eyes Eyes: Denies blurry vision or change in vision ENT ENT ED: Denies ear pain or rhinorrhea Cardiovascular Cardiovascular: Denies chest pain or palpitations Respiratory/Chest Respiratory/Chest: Denies cough, dyspnea or dyspnea on exertion Gastrointestinal Gastrointestinal: Denies abdominal pain, nausea or vomiting Genitourinary Genitourinary ED: Denies dysuria, hematuria or urinary frequency Musculoskeletal Musculoskeletal: Reports myalgias; Denies arthralgias Integumentary Denies rash Neurologic Neurologic: Reports weakness Endocrine Endocrinology: Denies cold intolerance or heat intolerance EXAM Physical Exam Const Vital Signs: 07/17/25 19:06 07/17/25 19:21 07/17/25 20:31 Temperature 98.2 F Temperature Source Oral Pulse Rate 58 L 81 Respiratory Rate 16 Respiratory Effort Normal Respiratory Pattern Normal Blood Pressure 132/77 H 145/79 H Blood Pressure Mean 95 101 Pulse Ox 99 Oxygen Delivery Method Nasal Cannula Oxygen Flow Rate (L/min) 4 07/17/25 21:00 07/17/25 22:00 Temperature Temperature Source Pulse Rate 65 61 Respiratory Rate 20 H 20 H Respiratory Effort Respiratory Pattern Blood Pressure 165/86 H 168/74 H Blood Pressure Mean 112 105 Pulse Ox 100 93 Oxygen Delivery Method Nasal Cannula Room Air Oxygen Flow Rate (L/min) 4 Positive well nourished and well developed Constitutional Narrative: Appears in no distress. BMI is 37.3. General Appearance ED: well developed, NAD and pallor HEENT Reports moist mucous membranes HEENT Narrative: Head is atraumatic normocephalic. Ears normal. Nares patent. Eyes PERRL and EOMs intact bilaterally General Eye ED: Negative for pale conjunctiva or scleral icterus Neck no lymphadenopathy, supple and no JVD Chest Wall inspection of chest normal Resp normal respiratory effort and clear to auscultation bilaterally Cardio regular rate, regular rhythm, S1 normal heart sound, S2 normal heart sound and no murmurs GI normal to inspection, nondistended, normoactive bowel sounds, non-distended and no masses; Negative for non-tender or hepatosplenomegaly Palpation: tender other (Minimal generalized) Back/Spine no CVA tenderness Extremity normal to inspection General Extremety ED: Yes tenderness Neuro No oriented x3 and No CN's II-XII intact bilaterally Sensorium / Orientation: alert Skin no rashes or lesions noted and no wounds General Skin Exam: pallor; Negative for jaundice MDM MDM MDM Narrative Medical decision making narrative: Patient presents with muscle aches weakness who has a genetic disorder, CPT II (carnitine Palmitoyltransferase II). She handed me a letter from her community outreach worker at [facility]. Labs that were recommended were ordered. IV fluids were started D10 half-normal saline. According to the document she is not a candidate for outpatient treatment and requires IV of D10 half-normal. This disorder has to do with fat metabolism and may result in hypoglycemia, rhabdomyolysis, inflammation of liver and dysrhythmia. For this reason EKG was also obtained. Lab Data Attestation: I reviewed the patient's lab results. Lab results narrative: CBC reveals anemia. H&H is similar to prior lab results. Patient has mild hyperkalemia Which is probably due to the fact that it is hemolyzed. Since there are no EKG changes to suggest hyperkalemia this will not be repeated. BUN and creatinine are elevated 21 and 1.73. This is slightly elevated compared to prior. Labs: Laboratory Results - last 24 hr 07/17/25 20:56 WBC 7.7 RBC 4.12 L Hgb 11.0 L Hct 35.4 L MCV 85.9 MCH 26.7 L MCHC 31.1 L RDW Std Deviation 41.0 RDW Coeff of Esvin 13.2 Plt Count 254 MPV 10.1 Immature Gran % (Auto) 0.300 Neut % (Auto) 72.5 H Lymph % (Auto) 18.0 L [place] % (Auto) 6.6 Eos % (Auto) 1.6 Baso % (Auto) 1.0 Absolute Neuts (auto) 5.6 Absolute Lymphs (auto) 1.39 Nucleated RBC % 0 Sodium 130 L Potassium 5.9 H Chloride 94 L Carbon Dioxide 26.8 Anion Gap 9 BUN 21 H Creatinine 1.73 H Estim Creat Clear Calc 37.32 L Est GFR (MDRD) Non-Af 32 L BUN/Creatinine Ratio 11.9 Glucose 88 Lactic Acid < 1.0 Calcium 8.7 Total Bilirubin 0.20 AST 35 H ALT 16 Alkaline Phosphatase 89 Total Creatine Kinase 401 H Total Protein 7.1 Albumin 3.9 Globulin 3.2 Albumin/Globulin Ratio 1.2 Patient CPK is elevated approximately 2 times normal. Since this is common with her genetic metabolic abnormality, CPT II. Based on information from community outreach worker she will require admission. EKG Initial EKG: Attestation: I personally reviewed and interpreted this EKG as follows: Interpretation: Sinus Rhythm (Rate is 62. The EKG is normal. ME interval is 166 ms. QRS duration 100 ms. QT duration 4 and 20 ms. [place] is normal.) Management Discussion w/another healthcare provider: Hospitalist (Spoke with Dr. Bynum. Patient was admitted to the PCU he was informed of her disorder and treatment and recommendations by her community outreach worker.) Treatment and Re-Evaluation :: It is an enzyme that plays a crucial role in metabolism fatty acids which is essential for energy production. The myopathic form which the patient has is characterized by myalgias and occasional weakness. Development of rhabdomyolysis. This may lead to kidney failure. This could be triggered by fasting, intense exercise, stress. 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
[2025-07-17 21:00] VITALS: BP 165/86; PULSE 65; RESP 20; O2SAT 100
[2025-07-17] MEDS: Sodium Chloride 19.25 MEQ in Dextrose 10%-Water 250 ML 150 MEQ IV (21:15)
[2025-07-17 21:23] LABS: Hematocrit 35.4 % (37-47); Hemoglobin 11.0 g/dL (12.0-15.0); Immature Granulocytes Count 0.020 X10^3/uL (0.0-0.0); Mean Corp Hgb Conc 31.1 g/dL (32-36); Mean Corpuscular Volume 85.9 fL (81-99); Mean Platelet Vol. 10.1 fl (6.2-12.0); NRBC Flagged by Analyzer 0 % (0-5); Platelet Count 254 K/mm3 (150-450); RBC Distribution Width CV 13.2 % (11.6-14.6); RBC Distribution Width SD 41.0 fl (35.1-43.9); Red Blood Count 4.12 M/mm3 (4.2-5.4); White Blood Count 7.7 K/mm3 (4.4-11.0)
[2025-07-17 21:46] LABS: AST(SGOT) 35 U/L (<=31); Alanine Aminotransfer ALT/SGPT 16 U/L (<=34); Albumin, Serum 3.9 g/dL (3.4-4.8); Alkaline Phosphatase 89 U/L (35-104); Anion Gap 9 (5-15); BUN 21 mg/dL (4-19); BUN/Creat Ratio 11.9 RATIO (10-20); Calcium,Total 8.7 mg/dL (7.6-11.0); Carbon Dioxide 26.8 mmol/L (21.0-32.0); Chloride 94 mmol/L (98-108); Estimated Creatinine Clearance 37.32 ml/min (50-250); Globulin 3.2 g/dL (2.2-4.2); Glucose 88 mg/dL (70-99); Potassium 5.9 mmol/L (3.3-5.1)
[2025-07-17 22:00] VITALS: BP 168/74; PULSE 61; RESP 20; O2SAT 93
[2025-07-17 22:15] LABS: CPK Total, Creatine Kinase 401 U/L (24-195)
--- NOTE | 2025-07-17 22:35 | PCM.HP.STD ---
[facility] - General General Date of Admission: 07/17/25 Date of Service: 07/17/25 Chief Complaint: Flare of CPT-2 with Muscle Aches and Pains. HPI Narrative LENNY LUO, is a 65 F with a past medical history of essential hypertension; on metoprolol and nifedipine, hyperlipidemia; on lovastatin, history of thyroid cancer; s/p thyroidectomy on levothyroxine, obesity (class II); with BMI of 37.3 this admission, obstructive sleep apnea, history of tobacco abuse with chronic bronchitis; ~1 pack/day times ~20 years (quit 2012), CAD, PAD, CKD; stage IV with baseline creatinine of ~1.8 mg/dL, NANCIE; on ferrous sulfate, history of polyclonal gammopathy, history of carnitine palmitoyl transferase II deficiency; followed by retail greeting card merchandiser at [facility] on levocarnitine, polyneuropathy; history of cervical radiculopathy, history of NSVT; followed by Dr. Shine of [facility], history of syncope, depression; on duloxetine, chronic diarrhea, GERD; on omeprazole, history of hysterectomy, history of rotator cuff repair, history of cataract; s/p extraction and osteoarthritis; with history of low back pain and total knee replacement who presents to [facility] ER complaining of flare of CPT-2 with muscle aches and pains. Ms. Luo reports her symptoms began a few hours prior to admission with the sudden-onset of generalized muscle aches and pain that are mild but herald a flare of CPT-2 so she was instructed by her retail greeting card merchandiser to come in and be treated with D10 1/2 NS at 1.5 x maintenance to manage her underlying genetic disorder affecting her metabolism of fat which may result in dysrhythmia, rhabdomyolysis and hypoglycemia. Additional resources revealed that NSAIDs and benzodiazepines should also be avoided in an effort to minimize risk of complications. She admits to myalgias and generalized weakness. She denies associated fever, chills, nausea, vomiting, constipation, abdominal pain, chest pain, palpitations, heart racing, SOB, dysuria, hematuria or rash. In the ER she was diagnosed with CPT-2 flare that was treated with the recommended D10 1/2 NS complicated by a hemolyzed blood panel that spuriously revealed Hyperkalemia of 5.9 mmol/L with repeat study pending at this time. She was then admitted to PCU for ongoing care for a stay that is expected to extend beyond 2 midnights. [facility] Medical History Arthrosis of right acromioclavicular joint Tendinosis of right rotator cuff Impingement of right shoulder Right shoulder pain Myalgia Neck pain Low back pain Anxiety Depression Osteoporosis Smoker On home oxygen therapy COPD (chronic obstructive pulmonary disease) Hypertension Hx of ventricular tachycardia COPD (chronic obstructive pulmonary disease) Chronic hypoxemic respiratory failure Polyclonal gammopathy Bence Davila protein present in urine Obesity Nonsustained ventricular tachycardia Coronary artery disease Syncope Palpitations Thyroid cancer Syncope and collapse Essential hypertension Fatigue Cervical radiculopathy Smoking greater than 30 pack years Hypoxia Chronic diarrhea Recurrent falls Fatty liver FELISA (obstructive sleep apnea) CKD (chronic kidney disease) stage 4, GFR 15-29 ml/min Acquired hypothyroidism History of vitamin D deficiency Peripheral arterial disease Vertigo Polyneuropathy Insomnia Carnitine palmitoyltransferase II deficiency Vision problems Thyroid cancer GERD (gastroesophageal reflux disease) Osteoarthritis Hypothyroid Neuropathy Kidney disease Hypertension History of emotional problems Chronic bronchitis Home Medications ?Medication ?Instructions ?Recorded ?Last Taken ?Type Disability Placard #1 ea 02/07/23 Unknown Rx aspirin 81 mg tablet,delayed 81 mg PO DAILY heart health 04/18/23 07/17/25 History release (Adult Low Dose Aspirin) cholecalciferol (vitamin D3) 50 50 mcg PO DAILY vitamin 04/18/23 07/17/25 History mcg (2,000 unit) capsule ferrous sulfate 325 mg (65 mg 325 mg PO DAILY supplement 04/18/23 07/17/25 History iron) tablet levocarnitine 330 mg tablet 330 mg PO TID vitamin 04/18/23 07/17/25 History compr.stocking,thigh,short,lrg #24 ea 02/29/24 Unknown Rx vitamin E (dl, acetate) 45 mg (100 45 mg PO QDAY supplement 01/06/25 07/17/25 History unit) capsule metoprolol tartrate 100 mg tablet 100 mg PO BID blood pressure #180 02/18/25 07/17/25 Rx tabs albuterol sulfate 90 mcg/actuation 2 puff inhalation Q6H PRN copd 04/04/25 Unknown History aerosol inhaler fluticasone fur. 200 mcg-umeclid 1 inh inhalation DAILY breathing 04/04/25 07/17/25 Rx 62.5 mcg-vilant 25 mcg #3 ea inhalat.powder (Trelegy Ellipta) doxepin 100 mg capsule 100 mg PO QHS sleep #30 caps 04/08/25 07/16/25 Rx tizanidine 4 mg tablet See Rx Instructions .Route 04/08/25 07/16/25 Rx .COMPLEX spasms #150 tabs lisinopril 20 mg tablet 10 mg PO QDAY hypertension 04/16/25 07/17/25 History duloxetine 60 mg capsule,delayed 60 mg PO DAILY mental health #90 04/17/25 07/17/25 Rx release caps nifedipine 30 mg tablet,extended 30 mg PO DAILY blood pressure #90 04/17/25 07/17/25 Rx release tabs omeprazole 40 mg capsule,delayed 40 mg PO DAILY for acid reflux #90 04/17/25 07/17/25 Rx release caps levothyroxine 175 mcg tablet 175 mcg PO DAILY thyroid #90 tabs 05/16/25 07/16/25 Rx albuterol sulfate 2.5 mg/3 mL 2.5 mg inhalation Q6 PRN wheezing 06/17/25 07/17/25 History (0.083 %) solution for nebulization lovastatin 10 mg tablet 10 mg PO QPM cholesterol #90 tabs 07/17/25 07/16/25 Rx Allergy/AdvReac Type Severity Reaction Status Date / Time Penicillins Allergy Unknown Unknown Verified 06/26/25 14:04 [id number] (From AdvReac Severe Diarrhea Verified 06/26/25 14:04 Ajovy Syringe) vancomycin AdvReac Rash Verified 06/26/25 14:04 Family History Mother CVA (cerebral vascular accident) Heart disease Arthritis Lupus Father Myocardial infarction Hypertension Brother Colon cancer Brother Colon cancer Brother Cancer stomach Sister Seizures Grandfather Myocardial infarction Grandmother Myocardial infarction Surgical History History of cholecystectomy Cataract extraction status History of surgical procedure H/O thyroidectomy S/P cholecystectomy History of surgical procedure H/O wrist surgery History of repair of rotator cuff History of hysterectomy Hx of total knee replacement Social History household members: family housing: apartment current occupational status: unemployed Smoking Status: Former smoker quit date: 07/10/13 pack-years: 20 Tobacco: How many years used: 20 Electronic Cigarette Use: not used second hand exposure: No alcohol intake: never substance use type: marijuana and other details: THC gummy caffeine: Yes Type: coffee Number of servings: 2 what type of physical activity do you participate in: none seatbelt use: always do you feel safe at home: Yes ROS ROS Narrative Review of Systems: Constitutional: Patient denies fever or chills. Eyes: Patient denies changes in vision or discharge from eyes. ENT: Patient denies runny nose, sore throat or ear pain. Resp: Patient denies SOB or cough. CV: Patient denies chest pain, palpitations, heart racing or LE edema. GI: Patient denies abdominal pain, nausea, vomiting or constipation. : Patient denies dysuria or hematuria. MSK: Patient admits to myalgias and generalized weakness as per HPI. Skin: Patient denies rash, abscess or wounds. Psych: Patient denies symptoms of uncontrolled depression or anxiety. Neuro: Patient denies headache, paresthesias or focal neurologic weakness. Allergy: Patient denies lip swelling, tongue swelling or urticaria. Hematology: Patient denies easy bleeding or easy bruisability. Endocrinology: Patient denies polyuria, polydipsia, polyphagia or heat/cold intolerance. 14 point ROS otherwise negative except for positives noted above. Vital Signs Vital Signs Vital Signs: 07/17/25 19:06 07/17/25 19:21 07/17/25 20:31 Temperature 98.2 F Temperature Source Oral Pulse Rate 58 L 81 Respiratory Rate 16 Respiratory Effort Normal Respiratory Pattern Normal Blood Pressure 132/77 H 145/79 H Blood Pressure Mean 95 101 Pulse Ox 99 Oxygen Delivery Method Nasal Cannula Oxygen Flow Rate (L/min) 4 07/17/25 21:00 07/17/25 22:00 Temperature Temperature Source Pulse Rate 65 61 Respiratory Rate 20 H 20 H Respiratory Effort Respiratory Pattern Blood Pressure 165/86 H 168/74 H Blood Pressure Mean 112 105 Pulse Ox 100 93 Oxygen Delivery Method Nasal Cannula Room Air Oxygen Flow Rate (L/min) 4 Weight Weight: 224 lb 6.889 oz Body Mass Index (BMI) 37.3 Physical Exam Const alert, oriented x3, no apparent distress and average body habitus Constitutional Narrative: Obese and nontoxic in appearance. General Appearance: cooperative HEENT normocephalic, head/scalp atraumatic, hearing grossly normal bilaterally and moist oral mucous membranes Eyes PERRL, EOMs intact bilaterally and conjunctivae normal Neck no lymphadenopathy, supple and no JVD Resp normal respiratory effort, no retractions, no use of accessory muscles and clear to auscultation bilaterally Cardio regular rate and regular rhythm GI normal to inspection, nondistended, normoactive bowel sounds, soft to palpation, non-tender and non-distended GI Narrative: Obese. Extremity normal to inspection, full ROM and no clubbing, cyanosis or edema Skin Skin Narrative: Patient has no evidence of rash, abscess, wounds or jaundice. Neuro oriented x3, CN's II-XII intact bilaterally, moves all extremities and no focal motor deficits Sensorium / Orientation: awake, alert, oriented to person, oriented to place and oriented to time Speech: speech normal Psych affect normal Results Medical Records Data Attestation: I reviewed the patient's medical records Lab / Micro Data Attestation: I reviewed the patient's lab results. 07/17/25 20:56 07/18/25 00:10 Labs: Laboratory Results - last 24 hr 07/17/25 20:56: WBC 7.7, RBC 4.12 L, Hgb 11.0 L, Hct 35.4 L, MCV 85.9, MCH 26.7 L, MCHC 31.1 L, RDW Std Deviation 41.0, RDW Coeff of Esvin 13.2, Plt Count 254, MPV 10.1, Immature Gran % (Auto) 0.300, Neut % (Auto) 72.5 H, Lymph % (Auto) 18.0 L, [place] % (Auto) 6.6, Eos % (Auto) 1.6, Baso % (Auto) 1.0, Absolute Neuts (auto) 5.6, Absolute Lymphs (auto) 1.39, Nucleated RBC % 0, Sodium 130 L, Potassium 5.9 H, Chloride 94 L, Carbon Dioxide 26.8, Anion Gap 9, BUN 21 H, Creatinine 1.73 H, Estim Creat Clear Calc 37.32 L, Est GFR (MDRD) Non-Af 32 L, BUN/Creatinine Ratio 11.9, Glucose 88, Lactic Acid < 1.0, Calcium 8.7, Total Bilirubin 0.20, AST 35 H, ALT 16, Alkaline Phosphatase 89, Total Creatine Kinase 401 H, Total Protein 7.1, Albumin 3.9, Globulin 3.2, Albumin/Globulin Ratio 1.2 Assessment & Plan Assessment/Plan (1) Carnitine palmitoyltransferase II deficiency: (2) Myalgia: (3) Generalized weakness: (4) Obesity (BMI 30-39.9): PLAN: Plan 1. CPT-2 flare with Myalgias and Generalized Weakness; followed by retail greeting card merchandiser at [facility] on levocarnitine - Admit to PCU. Continue D10 1/2 NS as per retail greeting card merchandiser's recommendations. Give acetaminophen prn for pain or fever. PT/OT and Case Management to consult and treat in the AM on-rounds for further recommendations with help appreciated in advance. Recheck of BMP confirms normal potassium of 4.8 mmol/L. 2. Obesity (class II); with BMI of 37.3 this admission plus obstructive sleep apnea - Weight loss will be recommended. Check TSH. This complicates her case and may hamper recovery. Offer nocturnal CPAP. 3. Essential hypertension; on metoprolol and nifedipine - Continue home regimen plus give hydralazine IV prn for systolic blood pressure > 160 mmHg. 4. Hyperlipidemia; on lovastatin - Maintain low-dose statin for now. 5. History of thyroid cancer; s/p thyroidectomy on levothyroxine - Resume levothyroxine check TSH. 6. History of tobacco abuse with chronic bronchitis; ~1 pack/day times ~20 years (quit 2012) - Stable with no evidence of flare at this time. Continue prn nebulizers. 7. CAD - Stable. 8. PAD - Stable. 9. CKD; stage IV with baseline creatinine of ~1.8 mg/dL - Stable with serum creatinine of 1.7 mg/dL and eGFR of 33 mL/min. 10. NANCIE; on ferrous sulfate - Stable with hemoglobin of 11 g/dL and MCV of 85.9 fL present on admission. 11. History of polyclonal gammopathy - Noted. 12. Polyneuropathy - Stable. 13. History of cervical radiculopathy - Noted. 14. History of NSVT; followed by Dr. Shine of [facility] - Noted. 15. History of syncope - Noted. 16. Depression; on duloxetine - Continue current treatment. 17. Chronic diarrhea - Stable with no new active issues at this time. 18. GERD; on omeprazole - Maintain PPI. 19. History of hysterectomy - Noted for the sake of completeness. 20. History of rotator cuff repair - Noted. 21. History of cataract; s/p extraction - Stable. 22. Osteoarthritis; with history of low back pain and total knee replacement - Give acetaminophen prn for pain or fever. 23. DVT prophylaxis - Heparin 5,000U sq BID plus SCD's. Total time: Approximately (but not less than) 55 minutes. Charges/Coding Visit Charges Inpatient E&M: 91562 Init Hosp L2
--- OUTSIDE RECORDS SUMMARY | 2025-07-17 22:58 | XMS RPT_ITS | CCD ---
Author Organization [facility] Care Team Providers Care Jazz Singer Name Role Phone Elana Pena Unavailable Elana Pena Unavailable [phone] Unavailable Unavailable Unavailable ELANA PENA Unavailable Unavailable MANUELITO MORALES Unavailable Unavailable TOPCHIKI, MANUELITO A Unavailable Unavailable ELANA PENA Unavailable Unavailable DENNIS ATKINS Unavailable Unavailable BETY HERNANDEZ Unavailable Unavailable BETY HERNANDEZ Unavailable Unavailable Cavalier Oscar A Admitting Unavailable Karel Oscar A Attending Unavailable Tom, Tyshawn K Admitting Unavailable Tom, Tyshawn K Attending Unavailable Inge, Bahzat Wayne Admitting Unavailab le Inge, Bahzat Wayne Attending Unavailab le Vadada, Jono C Admitting Unavailable Vadada, Jono C Attending Unavailable Jonathan Rutherford Admitting Unavailable Jonathan Rutherford Attending Unavailable Ezequiel, Khaldoon Wajeeh Admitting Unavail able Ezequiel, Khaldoon Wajeeh Attending Unavail able Vaibhav Naranjo Attending Unavailable Vaibhav Naranjo Admitting Unavailable Vaibhav Naranjo Admitting Unavailable Vaibhav Naranjo Attending Unavailable Ezequiel, Khaldoon Wajeeh Admitting Unavail able Ezequiel, Khaldoon Wajeeh Attending Unavail able Kailee Louis Admitting Unavailable Kailee Louis Attending Unavailable Vadada, Jono C Admitting Unavailable Vadada, Jono C Attending Unavailable Bety Hernandez Admitting Unavailable Bety Hernandez Attending Unavailable Elana Pena Primary Care Provider Elana Pena Unavailable Elana Pena Primary Care Provider Becky Elana Ramírez Primary Care Provider Becky Elana Ramírez Unavailable [phone] Krish Jonathan Monica Primary Care Provider Elana Pena DO Unavailable Lashondaer STEAM TENDER, Jonathan L. Primary Care Provider Wilfridlinger STEAM TENDER, Jonathan L. Unavailable Elana Pena DO Unavailable Hellinger STEAM TENDER, Jonathan L. Unavailable Lashondaer STEAM TENDER, Jonathan L. Primary Care Provider Lashondaer RUIZ, Jonathan L. Unavailable JADA VARGAS Admitting Unavail able JADA VARGAS Attending Unavail able LASHONDAAUGUSTIN JONATHAN L. Primary Care Unavailable KINGS ALLEN Consulting Unavailable JADA VARGAS Admitting Unavail able JADA VARGAS Attending Unavail able KRISH JONATHAN Monica Primary Care Unavailable Dr. Rusty Dozier Attending Provider Jonathan Mitchell Primary Care Provider Krish RECEPTION CENTRE MANAGER, RECEPTION CENTRE MANAGER-C Jonathan Referring Provider Dr. Jennifer Gordon Primary Care Provider Dr. Jennifer Gordon Attending Provider Dr. Oscar Arshad Attending Provider Krish RECEPTION CENTRE MANAGER, RECEPTION CENTRE MANAGER-C Jonathan Referring Provider [phone] Dr. Jennifer Gordon Primary Care Provider Dr. Jennifer Gordon Attending Provider Dr. Oscar Arshad Attending Provider Dr. Rusty Dozier Referring Provider Dr. Rusty Dozier Attending Provider Dr. Jennifer Gordon Referring Provider [phone] Dr. Rusty Dozier Referring Provider Dr. Jennifer Gordon Primary Care Provider Dr. Jennifer Gordon Referring Provider [phone] Giovanna RECEPTION CENTRE MANAGER, RECEPTION CENTRE MANAGER-C Sasha Attending Provider Aleisha Chisholm Attending Provider Unavailable Dr. Flavia Shine Attending Provider Dr. Flavia Shine Referring Provider Dr. Jennifer Gordon Attending Provider [phone] DANIEL Banerjee Referring Provider DANIEL Banerjee Other Provider Dr. Melvin Oshea Attending Provider Dr. Jennifer Gordon Primary Care Provider Dr. Jennifer Gordon Primary Care Provider Dr. Jennifer Gordon Referring Provider [phone] Jonathan Rutherford CNP Primary Care Provider Jonathan Rutherford CNP Unavailable Dr. Jennifer Gordon Primary Care Provider Dr. Jennifer Gordon Referring Provider [phone] Dr. Flavia Shine Attending Provider Dr. Rusty Dozier Attending Provider Dr. Jennifer Gordon Attending Provider [phone] Dr. Qiana Forde Attending Provider Dr. Jennifer Gordon Primary Care Provider Dr. Jennifer Gordon Referring Provider [phone] Dr. Rusty Dozier Attending Provider Dr. Jennifer Gordon Attending Provider [phone] Dr. Qiana Forde Attending Provider Dr. Cristian Joseph Attending Provider No, Physician Primary Care Provider Unavailabl e Heidi HUNTER, Dr. Rodriguez Primary Care Provider [phone] Heidi HUNTER, Dr. Rodriguez Attending Provider Heidi HUNTER, Dr. Rodriguez Referring Provider Jacoby HUNTER, Dr. Ojeda Attending Provider [phone] Jacoby HUNTER, Dr. Ojeda Referring Provider Barrera HUNTER, Dr. Espinal Attending Provider Barrrea HUNTER, Dr. Espinal Emergency Provider Hui Roberts Attending Provider Dorie HUNTER, Dr. Charles Attending Provider [phone] Cary Jacobsen MD Attending Provider [phone] Hui Roberts Referring Provider Heidi HUNTER, Dr. Rodriguez Primary Care Provider [phone] Heiid HUNTER, Dr. Rodriguez Referring Provider Cary Jacobsen MD Referring Provider [phone] Wayne JIMENEZ-CColette Attending Provider Dr. Jennifer Gordon MD Attending Provider Giovanna JIMENEZ-CSasha Attending Provider Giovanna RECEPTION CENTRE MANAGER-CSasha Referring Provider NO, PHYSICIAN Primary Care Unavailable URADU, CB TRINIDAD Attending Unavailable RIVAS JULES Attending Unavailable JONATHAN RUTHERFORD Primary Care Unavailable NO, PHYSICIAN Primary Care Unavailable SYSTEM, PROVIDER NOT IN Admitting Unavaila ble URADUCB Referring Unavailable URADU, CB TRINIDAD Attending Unavailable NO, PHYSICIAN Primary Care Unavailable MIHAELA JAMES Attending Unavailable JONATHAN RUTHERFORD Primary Care Unavailable YARELI WOODRUFF Attending Unavailable JONATAN AKINS Attending Unavaila ble NO, PHYSICIAN Primary Care Unavailable URADU, CB TRINIDAD Attending Unavailable URADU, CB TRINIDAD Referring Unavailable NO, PHYSICIAN Primary Care Unavailable INGEJOSSIE HAMILTON Attending Unavailable [facility] Consulting Unavai lable EVAN, LUIS MIGUELQIKrzysztof FIRAS Admitting Unavailable NO, PHYSICIAN Primary Care Unavailable NO, PHYSICIAN Primary Care Unavailable MOSALEM, AHMED MOHAMED Admitting Unavailab le MOSALEM, AHMED MOHAMED Consulting Unavailab le KATIE RAMÍREZ Attending Unavailable VIAU, RIVAS NOLAN Consulting Unavailable INGE, IVELISSEZAAngel Attending Unavailable SALEM, AHMED Admitting Unavailable [facility] Consulting Unavai lable NO, PHYSICIAN Primary Care Unavailable Not On File, Doctor Primary Care Provider Heidi HUNTER, Dr. Rodriguez Primary Care Provider [phone] Dr. Jennifer Gordon MD Referring Provider Dorie HUNTER, Dr. Charles Attending Provider [phone] Hui Roebrts Attending Provider [phone] Dr. Rusty Dozier MD Attending Provider Heidi HUNTER, Dr. Rodriguez Primary Care Provider [phone] Cary Jacobsen MD Attending Provider [phone] Dr. Jennifer Gordon MD Referring Provider Hui Roberts Attending Provider [phone] Melvin Oshea MD Attending Provider [phone] Dr. Jennifer Gordon MD Primary Care Provider [phone] Cary Jacobsen MD Attending Provider [phone] Wayne JIMENEZ-CColette Referring Provider Tatiana JIMENEZ-CMihaela Attending Provider [phone] Dr. Jennifer Gordon MD Primary Care Provider [phone] Dr. Jennifer Gordon MD Referring Provider Tatiana RECEPTION CENTRE MANAGER-C, Mihaela Referring Provider [phone] WILFRIDBAYRONJONATHAN RUFFIN URIAH Primary Care Unavailable Herve Hyman Attending Unavailable Unknown, Doctor Primary Care Unavailable Boogie, Herve Attending Unavailable Unknown, Doctor Primary Care Unavailable Boogie, Herve Attending Unavailable Hui Whitehead Attending Unavailable Wheeler, Jennifer Referring Unavailable Wheeler, Jennifer Primary Care Unavailable Wheeler, Jennifer Primary Care Unavailable Ungerer, Mihaela Attending Unavailable Ungerer, Mihaela Referring Unavailable Flavia Shine Attending Unavailable Heidi, Jennifer Referring Unavailable Heidi, Jennifer Primary Care Unavailable Rusty Dozier Attending Unavailable Baddour, Rusty Referring Unavailable Wheeler, Jennifer Primary Care Unavailable Wheeler, Jennifer Referring Unavailable Wheeler, Jennifer Primary Care Unavailable Heidi, Jennifer Attending Unavailable Heidi, Jennifer Primary Care Unavailable Colette Black Attending Unavailable Colette Black Referring Unavailable Heidi, Jennifer Primary Care Unavailable Andree Hutchins Attending Unavailable Andree Hutchins Referring Unavailable Teddy Rust Attending Unavailable Wheeler, Jennifer Primary Care Unavailable Wheeler, Jennifer Primary Care Unavailable Wheeler, Jennifer Referring Unavailable Rusty Dozier Attending Unavailable Wheeler, Jennifer Primary Care Unavailable Heidi, Jennifer Referring Unavailable Mihaela Simpson Attending Unavailable Heidi, Jennifer Primary Care Unavailable Rusty Dozier Attending Unavailable Heidi, Jennifer Referring Unavailable Colette Black Attending Unavailable Wheeler, Jennifer Referring Unavailable Heidi, Jennifer Primary Care Unavailable Melvin Oshea Attending Unavailable Wheeler, Jennifer Primary Care Unavailable VenturaHui Attending Unavailable Heidi, Jennifer Referring Unavailable Heidi, Jennifer Primary Care Unavailable Wheeler, Jennifer Referring Unavailable Wheeler, Jennifer Primary Care Unavailable Wheeler, Jennifer Attending Unavailable Wheeler, Jennifer Referring Unavailable Wheeler, Jennifer Attending Unavailable Heidi, Jennifer Primary Care Unavailable Heidi, Jennifer Referring Unavailable Heidi, Jennifer Attending Unavailable Wheeler, Jennifer Primary Care Unavailable Colette Black Attending Unavailable Wheeler, Jennifer Primary Care Unavailable Heidi, Jennifer Referring Unavailable MollisonCary Attending Unavailable Heidi, Jennifer Primary Care Unavailable Heidi, Jennifer Referring Unavailable Wheeler, Jennifer Primary Care Unavailable Colette Black Referring Unavailable Cristian Joseph Attending Unavailable Cary Jacobsen Attending Unavailable Heidi, Jennifer Referring Unavailable Heidi, Jennifer Primary Care Unavailable Heidi, Jennifer Primary Care Unavailable Giovanna RECEPTION CENTRE MANAGER, Sasha Referring Unavailable Giovanna RECEPTION CENTRE MANAGER, Sasha Attending Unavailable Ventura, Hui Attending Unavailable Ventura, Hui Referring Unavailable Heidi, Jennifer Primary Care Unavailable Colette Black Attending Unavailable Dorie, Reddick Attending Unavailable Heidi, Jennifer Primary Care Unavailable Melvin Oshea Attending Unavailable Wheeler, Jennifer Primary Care Unavailable Cary Jacobsen Attending Unavailable Wheeler, Jennifer Referring Unavailable Heidi, Jennifer Primary Care Unavailable Ehidi, Jennifer Primary Care Unavailable Rusty Dozier Attending Unavailable Rusty Dozier Referring Unavailable Cary Jacobsen Attending Unavailable Cary Jacobsen Referring Unavailable Wheeler, Jennifer Primary Care Unavailable Allergies Allergy Classification Reported Allergen(s) Allergy Type Date of Onset Reaction(s) Facility Penicillins (antibiotic) (1 source) Penicillins Drug Allergy 5 Unknown, Other (See Comments) [facility] (17 sources) naproxen Propensity to adverse reactions to drug 7 [facility] Work Phone: (20 sources) Penicillins; Translations: [PENICILLINS] Propensity to adverse reactions to drug 5 Unknown, Other (See Comments) [facility] Work Phone: Comment on above: allerigic when a chi ld (1 source) Penicillins Drug allergy (disorder) [facility] (1 source) Penicillins Propensity to adverse reactions to drug 6 [facility] (17 sources) Penicillins Propensity to adverse reactions to drug 5 Unknown, Other (See Comments) [facility] (20 sources) Penicillins Propensity to adverse reactions to drug 5 Unknown, Other (See Comments) [facility] (8 sources) Penicillins Propensity to adverse reactions to drug 5 Unknown, Other (See Comments) [facility] (15 sources) Vancomycin; Translations: [VANCOMYCIN] Drug Allergy 5 Rash [facility] (8 sources) fremanezumab Drug Allergy 5 Diarrhea [facility] (1 source) Penicillins Drug allergy (disorder) 5 [facility] Repository (1 source) Vancomycin Drug Allergy 5 [facility] (1 source) fremanezumab-vfr m Drug allergy (disorder) 5 [facility] Repository Medications Current Medications Medication Drug Class(es) Dates Sig (Normalized) Sig (Original) acetaminophen 325 mg oral tablet (7 sources) Start: 02-18-2025 End: 02-28-2025 take 2 tablets by mouth every four hours as needed acetaminophen (TYLENOL) 325 MG tablet Take 2 (two) tablets (650 mg total) by mouth every 4 (four) hours as needed . 30 tablet 02/18/2025 02/28/2025 Active Start: 02-13-2025 End: 02-18-2025 take 1 tablet by mouth every four hours as needed for pain and headache 650 mg, Oral, Every 4 hours PRN, mild pain, fever 100.4 F or greater, headaches, Starting on Gege 02/13/25 at 2303 Start: 09-22-2024 End: 09-25-2024 take 1 tablet by mouth every four hours as needed for headache and pain 650 mg, Oral, Every 4 hours PRN, headaches, fever 100.4 F or greater, mild pain, Starting on 09/22/24 at 1046 Start: 06-21-2022 End: 06-25-2022 take 1 tablet by mouth every four hours as needed for pain and headache acetaminophen (TYLENOL) tablet 650 mg Start: 03-30-2022 End: 04-04-2022 1,300 mg, Oral, Every 8 hour s scheduled, First dose on Mon03/30/22 at 2200, PACU to Post Procedure Do not give within 6 hours of last dose of IV acetaminophen (OFIRMEV) or last dose of oral acetaminophen. Maximum dose of 4 grams in 24 hours. albuterol 0.83 mg/ml inhalation solution (20 sources) beta2-Adrenergic Agonist Start: 06-17-2025 take 1 mg by inhalation every six hours as needed for wheezing Albuterol Sulfate 2.5 mg /3 mL (0.083 %) solution for nebulization Active mg INHALATION EVERY 6 HOURS as needed for wheezing June 17, 2025 12:00am Start: 04-04-2025 Albuterol Sulf ate 90 mcg/actuation HFA aerosol inhaler Active 2 NMA INHALATION EVERY 6 HOURS as needed April 04, 2025 12:00am Start: 02-18-2025 End: 03-20-2025 albuterol (PROVENTIL) 2.5 mg /3 mL (0.083 %) nebulizer solution Indications: COPD exacerbation (HCC) Take by nebulization every 6 (six) hours as needed for wheezing . 360 mL 02/18/2025 Active Start: 02-18-2025 End: 03-20-2025 take 2 puff(s) by inhalation every six hours as needed for wheezing albuterol 90 mcg/actuation inhaler Inhale 2 (two) puffs every 6 (six) hours as needed for wheezing . 18 g 02/18/2025 1:49 PM EDT 02/18/2025 Active Start: 02-13-2025 End: 02-18-2025 Start: 02-13-2025 End: 02-18-2025 take 0.63 mg by inhalation every six hours as needed for wheezing Start: 09-21-2024 End: 09-25-2024 take 2.5 mg by inhalation every six hours as needed for wheezing 2.5 mg, Nebulization, Every 6 hours PRN (RT), wheezing, Starting on 09/21/24 at 2220 Start: 09-02-2024 End: 09-03-2024 2.5 mg, Nebulization, Every 6 hours scheduled (RT), First dose on 09/02/24 at 2000 Start: 06-21-2022 End: 06-29-2022 take 0.63 mg by inhalation every six hours as needed for wheezing 0.63 mg, Nebulization, Every 6 hours PRN (RT), wheezing, Starting on Tu06/21/22 at 2026 Start: 03-30-2022 End: 02-18-2025 take 2 puff(s) by inhalation every six hours as needed for wheezing 2 puff, Inhalation, Every 6 hours PRN (RT), wheezing, Starting on Mon03/30/22 at 1933, PACU to Post Procedure SPACER REQUIRED FOR ADMINISTRATION take 2 puff(s) by mo uth every four hours as needed for cough albuterol HFA 90 mcg/actuation inhalation inhaler Inhale 2 puffs by mouth every 4 hours as needed for Wheezing, Shortness of breath or Cough. Active End: 02-18-2025 take 0.63 mg by inhalation every six hours as needed for wheezing albuterol (ACCUNEB) 0.63 mg/3 mL nebulizer solution Take 3 mL (0.63 mg total) by nebulization every 6 (six) hours as needed for wheezing . 02/18/2025 Discontinued take 0.63 mg by inha lation every six hours as needed for wheezing albuterol (ACCUNEB) 0.63 mg/3 mL nebulizer solution Take 1 ampule by nebulization every 6 (six) hours as needed for wheezing. Active take 2 puff(s) by in halation every six hours as needed for wheezing albuterol (PROVENTIL HFA;VENTOLIN HFA) 90 mcg/actuation inhaler Inhale 2 puffs every 6 (six) hours as needed for wheezing. 0 Active take 2 puff(s) by in halation every six hours as needed for wheezing albuterol (PROVENTIL HFA;VENTOLIN HFA) 90 mcg/actuation inhaler Inhale 2 puffs every 6 (six) hours as needed for wheezing. 0 Active albuterol 0.833 mg/ml / ipratropium bromide 0.167 mg/ml inhalation solution (20 sources) Anticholinergic, beta2-Adrenergic Agonist Start: 04-04-2025 take 1 mL by inhalation every four to six hours as needed for wheezing Ipratropium-Albuterol 0.5 mg-3 mg(2.5 mg base)/3 mL solution for nebulization Active 3 mL INHALATION EVERY 4-6 HOURS as needed for shortness of breath or wheezing 180 April 04, 2025 12:00am Start: 02-17-2025 End: 02-18-2025 take 3 mL by inhalation every six hours 3 mL, Inhalation, Every 6 hours scheduled (RT), First dose (after last modification) on 02/17/25 at 0815 Start: 02-14-2025 End: 02-17-2025 take 3 mL by inhalation every four hours 3 mL, Inhalation, Every 4 hours scheduled (RT), First dose on 02/14/25 at 0940 Start: 02-13-2025 End: 02-13-2025 take 3 mL by inhalation once 3 mL, Inhalation, Once (R T), On Gege 02/13/25 at 1705, For 1 dose Start: 09-21-2024 End: 09-21-2024 take 3 mL by inhalation once 3 mL, Inhalation, Once (R T), On 09/21/24 at 2035, For 1 dose Start: 09-02-2024 End: 09-02-2024 take 3 mL by inhalation once 3 mL, Inhalation, Once, O n 09/02/24 at 1130, For 1 dose Start: 06-26-2022 End: 06-29-2022 ipratropium-albuteroL (DUO-N EB) 0.5-2.5 mg/3 ml nebulizer solution 3 mL Start: 12-30-2021 End: 12-30-2022 ipratropium-albuteroL (DUO-N EB) 0.5-2.5 mg/3 ml nebulizer Take 3 mL by nebulization 3 (three) times a day as needed for wheezing or shortness of breath . 270 mL 11 12/30/2021 04/04/2022 Discontinued (Stop Taking at Discharge) ALBUTEROL, REFILL, INHALATIO N (17 sources) ALBUTEROL, REFIL L, INHALATION Inhale by mouth. Active ALBUTEROL, REFIL L, INHALATION Inhale by mouth. 0 Active calcium polycarbophil 625 mg oral tablet (1 source) Start: 07-19-2022 End: 07-19-2023 take 1 tablet by mouth once daily polycarbophil (FIBERCON) 625 mg tablet Take 1 (one) tablet (625 mg total) by mouth daily . 30 tablet 07/19/2022 07/19/2023 Active cetirizine hydrochloride 10 mg oral tablet (7 sources) Histamine-1 Receptor Antagonist take 1 tablet by mouth once daily cetirizine (ZYRTEC) 10 MG tablet Take 1 (one) tablet (10 mg total) by mouth daily . Active ciprofloxacin 500 mg oral tablet (3 sources) Quinolone Antimicrobial Start: 06-28-2022 End: 07-07-2022 take 1 tablet by mouth once daily ciprofloxacin HCl (CIPRO) 500 MG tablet Take 1 (one) tablet (500 mg total) by mouth daily for 7 days Start: 06/30/22. 7 tablet 0 06/30/2022 07/07/2022 Active Compr.Stocking,Thig h,Short,Lrg (2 sources) Start: 02-29-2024 Compr.Stocking,Thig h,Short,Lrg Active 0 .Route February 29, 2024 12:00am As directed Compr.Stocking,Thig h,Short,Lrg misc (12 sources) Start: 02-29-2024 Compr.Stocking,Thig h,Short,Lrg misc Active 0 .Route February 29, 2024 12:00am Edema of both lower extremities Localized edema As directed Start: 02-29-2024 Compr.Stocking ,Thigh,Short,Lrg misc Active 0 .Route February 29, 2024 12:00am As directed Disability Placard (20 sources) Start: 02-07-2023 Disability Fatimah card Active 0 .Route .MEDSUPPLY 1 February 07, 2023 12:00am Expiration 02/07/2026 Expiration 02/07/2026 Start: 02-07-2023 Disability Fatimah card Active 0 .Route .MEDSUPPLY February 06, 2023 11:00pm Expiration 02/07/2026 Start: 02-07-2023 Disability Fatimah card Active 0 .Route .MEDSUPPLY February 07, 2023 12:00am Expiration 02/07/2026 Flhubbvupcb-Kmwjbflyw-Ojwren er (20 sources) Start: 04-04-2025 Gjxeyjqnmkl-Tsoqzvxtw-Ybwdnl er (Trelegy Ellipta) 200-62.5-25 mcg blister with device Active 1 NMA INHALATION DAILY 3 April 04, 2025 2:17pm Obstructive sleep apnea syndrome Obstructive sleep apnea (adult) (pediatric) breathing Start: 05-30-2025 Fluticasone-Um eclidin-Vilanter (Trelegy Ellipta) 200-62.5-25 mcg blister with device Active 1 NMA INHALATION DAILY April 04, 2025 2:17pm Start: 11-07-2024 End: 04-04-2025 Nckmdflgfaa-Ocpqdfgdj-Idtnve er (Trelegy Ellipta) 200-62.5-25 mcg blister with device Discontinued 1 NMA INHALATION DAILY 3 November 07, 2024 11:37am April 04, 2025 2:18pm Obstructive sleep apnea syndrome Obstructive sleep apnea (adult) (pediatric) breathing Start: 11-07-2024 End: 04-04-2025 Yryxjlmwmuj-Cdcmsjely-Qtlshe er (Trelegy Ellipta) 200-62.5-25 mcg blister with device Discontinued 1 NMA INHALATION DAILY November 07, 2024 11:37am April 04, 2025 2:18pm Start: 11-07-2024 Fluticasone-Um eclidin-Vilanter (Trelegy Ellipta) 200-62.5-25 mcg blister with device Active 1 NMA INHALATION DAILY November 07, 2024 11:37am Start: 07-17-2024 End: 11-07-2024 Juersqjjyms-Absulqivn-Cclbtq er (Trelegy Ellipta) 200-62.5-25 mcg blister with device Discontinued 1 NMA INHALATION DAILY 3 July 17, 2024 1:44pm November 07, 2024 11:37am Obstructive sleep apnea syndrome Obstructive sleep apnea (adult) (pediatric) breathing Start: 07-17-2024 End: 11-07-2024 Mhbzpqiebdh-Phfsvfmbt-Qddpja er (Trelegy Ellipta) 200-62.5-25 mcg blister with device Discontinued 1 NMA INHALATION DAILY July 17, 2024 1:44pm November 07, 2024 11:37am Start: 02-12-2024 End: 07-17-2024 Wjowabejieu-Zvsozlgom-Iwtwkv er (Trelegy Ellipta) 200-62.5-25 mcg blister with device Discontinued 1 NMA INHALATION DAILY 3 February 12, 2024 8:20am July 17, 2024 1:44pm Obstructive sleep apnea syndrome Obstructive sleep apnea (adult) (pediatric) breathing Start: 02-12-2024 End: 07-17-2024 Sttntkcuazd-Zhmvefywm-Qzwxgn er (Trelegy Ellipta) 200-62.5-25 mcg blister with device Discontinued 1 NMA INHALATION DAILY February 12, 2024 8:20am July 17, 2024 1:44pm Start: 02-12-2024 Fluticasone-Um eclidin-Vilanter (Trelegy Ellipta) 200-62.5-25 mcg blister with device Active 1 INH INHALATION DAILY February 12, 2024 8:20am Start: 02-24-2023 End: 02-12-2024 Bqwbwkvrkbp-Yrecqtzhl-Htqmhc er (Trelegy Ellipta) 200-62.5-25 mcg blister with device Discontinued 1 NMA INHALATION DAILY 3 February 24, 2023 2:38pm February 12, 2024 8:20am Obstructive sleep apnea syndrome Obstructive sleep apnea (adult) (pediatric) Start: 02-24-2023 End: 02-12-2024 Aacnraeztdt-Zjmtduprw-Zpphaw er (Trelegy Ellipta) 200-62.5-25 mcg blister with device Discontinued 1 NMA INHALATION DAILY February 24, 2023 2:38pm February 12, 2024 8:20am Start: 02-24-2023 End: 02-12-2024 Hegeakefzku-Ubuedwccj-Shkztg er (Trelegy Ellipta) 200-62.5-25 mcg blister with device Discontinued 1 INH INHALATION DAILY February 24, 2023 2:38pm February 12, 2024 8:20am Start: 02-24-2023 Fluticasone-Um eclidin-Vilanter (Trelegy Ellipta) 200-62.5-25 mcg blister with device Active 1 INH INHALATION DAILY February 24, 2023 1:38pm Start: 02-24-2023 Fluticasone-Um eclidin-Vilanter (Trelegy Ellipta) 200-62.5-25 mcg blister with device Active 1 INH INHALATION DAILY February 24, 2023 2:38pm Start: 02-24-2023 End: 02-24-2023 Lrxzieofjah-Zxppjwlxj-Szbeet er (Trelegy Ellipta) 200-62.5-25 mcg blister with device Discontinued 1 NMA INHALATION DAILY February 24, 2023 12:00am February 24, 2023 2:38pm Start: 02-24-2023 End: 02-24-2023 Fefcyokkizz-Grsnbshiu-Kalrnf er (Trelegy Ellipta) 200-62.5-25 mcg blister with device Discontinued 1 INH INHALATION DAILY February 23, 2023 11:00pm February 24, 2023 1:38pm Start: 02-24-2023 End: 02-24-2023 Moxddmeitkr-Mcbgzuoqm-Xuavax er (Trelegy Ellipta) 200-62.5-25 mcg blister with device Discontinued 1 INH INHALATION DAILY February 24, 2023 12:00am February 24, 2023 2:38pm gkktzjlynli-ycvlqlcqk-wgsgsx er (Trelegy Ellipta) 200-62.5-25 mcg DsDv (20 sources) Start: 12-30-2021 poooajwengy-irlllfpdw-yhsgld er (Trelegy Ellipta) 200-62.5-25 mcg DsDv Inhale 1 (one) Inhalation daily . 60 each 12/30/2021 Start: 12-30-2021 fluticasone-um eclidin-vilanter (Trelegy Ellipta) 200-62.5-25 mcg DsDv Inhale 1 (one) Inhalation daily . 60 each 12/30/2021 Active furosemide 20 mg oral tablet (15 sources) Loop Diuretic Start: 02-18-2025 End: 03-20-2025 take 1 tablet by mouth once daily in the evening furosemide (LASIX) 20 MG tablet Take 1 (one) tablet (20 mg total) by mouth daily . 30 tablet 02/18/2025 1:49 PM EDT 02/18/2025 Active Start: 02-18-2025 End: 02-18-2025 take 40 mg by mouth once daily 40 mg, Oral, Daily, Fir st dose on Mon02/18/25 at 0900 Start: 02-16-2025 20 mg, Intrave nous, 2 times daily, First dose on Mon02/16/25 at 1230, For 3 doses, Administer IV push at 20 mg per minute (doses higher than 100 mg require IVPB) Start: 02-13-2025 20 mg, Intrave nous, Once, On Gege 02/13/25 at 1915, For 1 dose, Administer IV push at 20 mg per minute (doses higher than 100 mg require IVPB) Start: 09-24-2024 End: 02-18-2025 take 1 tablet by mouth twice daily furosemide (LASIX) 20 MG tablet Take 1 (one) tablet (20 mg total) by mouth 2 (two) times a day . 60 tablet 09/25/2024 02/18/2025 Discontinued Start: 06-25-2022 End: 06-26-2022 furosemide (LASIX) injection 20 mg levOCARNitine 330 mg oral tablet (20 sources) Carnitine Analog Start: 02-13-2023 End: 03-06-2024 take 1 tablet by mouth three times daily Levocarnitine 330 mg tablet Active 330 mg PO THREE TIMES A DAY April 18, 2023 12:00am vitamin lidocaine 0.05 mg/mg medicated patch (4 sources) Antiarrhythmic, Amide Local Anesthetic Start: 11-02-2020 End: 11-07-2020 apply 1 dose transdermal route once daily, then apply 1 dose transdermal route every twelve hours lidocaine (LIDODERM) 5 % patch Place 1 (one) patch on the skin daily Remove & Discard patch within 12 hours or as directed by MD for 5 days . 5 patch 0 11/02/2020 11/07/2020 Active Start: 11-02-2020 End: 11-02-2020 lidocaine patch 1 patch Start: 05-07-2019 End: 05-12-2019 lidocaine (LIDODERM) 1 patch lisinopril 20 mg oral tablet (20 sources) Angiotensin Converting Enzyme Inhibitor Start: 2025 take 10 mg by mouth once daily Lisinopril 20 mg tablet Active 10 mg PO daily 2025 1:47pm Start: 02-14-2025 End: 02-14-2025 take 20 mg by mouth once daily 20 mg, Oral, Daily, Fir st dose on Mon02/14/25 at 0900 Start: 09-02-2024 End: 09-03-2024 take 40 mg by mouth once daily 40 mg, Oral, Daily, Fir st dose on 09/02/24 at 2000 Start: 07-02-2024 End: 2025 take 1 tablet by mouth once daily Lisinopril 20 mg tablet Discontinued 20 mg PO daily 90 April 03, 2025 8:17am 2025 1:47pm Start: 2024 End: 10-16-2024 take 1 tablet by mouth once daily Lisinopril 10 mg tablet Discontinued 10 mg PO DAILY 90 2024 12:00am October 16, 2024 2:22pm blood pressure Start: 2024 End: 2024 take 1 tablet by mouth once daily Lisinopril 20 mg tablet Discontinued 20 mg PO daily 2024 12:00am 2024 3:04pm Start: 12-01-2022 End: 07-24-2023 take 1 tablet by mouth once daily Lisinopril 40 mg tablet Discontinued 40 mg PO DAILY 30 June 05, 2023 10:31am July 24, 2023 2:41pm Start: 03-30-2022 End: 04-04-2022 take 40 mg by mouth once daily 40 mg, Oral, Daily, Fir st dose on Mon03/30/22 at 1999, PACU to Post Procedure take 2 tablets by [facility] once daily lisinopril (ZESTRIL) 20 mg oral tablet Take 2 tablets by mouth once daily. Takes 40mg daily. Active Magnesium Sulfate / potassium sulfate / sodium sulfate (1 source) Start: 01-07-2022 sodium,potassi um,mag sulfates (SUPREP BOWEL PREP KIT) 17.5 gram-3.13 gram-1.6 gram oral soln Indications: Hx of colonic polyps Take as directed by prescribing physician's office. . 354 mL 0 01/07/2022 Active metoprolol tartrate 100 mg oral tablet (20 sources) beta-Adrenergi c Saira Start: 02-13-2025 End: 02-18-2025 take 100 mg by mouth twice daily 100 mg, Oral, 2 times daily, First dose on Gege 02/13/25 at 2345 Start: 09-22-2024 End: 09-25-2024 take 100 mg by mouth twice daily 100 mg, Oral, 2 times daily, First dose on 09/22/24 at 0030, Hold for HR Start: 09-02-2024 End: 09-03-2024 take 100 mg by mouth twice daily 100 mg, Oral, 2 times daily, First dose on 09/02/24 at 2100 Start: 2024 End: 02-18-2025 take 1 tablet by mouth twice daily Metoprolol Tartrate 100 mg tablet Discontinued 100 mg PO TWICE A DAY 180 June 06, 2024 8:03am February 18, 2025 1:12pm blood pressure Start: 07-24-2023 End: 2024 take 1 tablet by mouth twice daily Metoprolol Tartrate 50 mg tablet Discontinued 50 mg PO TWICE A DAY 180 July 24, 2023 12:00am 2024 3:04pm Start: 06-27-2022 End: 09-03-2024 take 1 tablet by mouth twice daily Metoprolol Tartrate 25 mg tablet Discontinued 25 mg PO TWICE A DAY 60 April 28, 2023 12:00am July 24, 2023 3:02pm Start: 04-19-2021 End: 10-06-2022 take 1 tablet by mouth once daily Metoprolol Succinate 50 mg tablet extended release 24 hr Discontinued 50 mg PO DAILY April 19, 2021 12:00am October 06, 2022 4:08pm metroNIDAZOLE 500 mg oral tablet (4 sources) Nitroimidazole Antimicrobial Start: 06-29-2022 End: 07-06-2022 take 1 tablet by mouth three times daily at mealtime metroNIDAZOLE (FLAGYL) 500 MG tablet Take 1 (one) tablet (500 mg total) by mouth 3 (three) times a day with meals for 7 days . 21 tablet 0 06/29/2022 07/06/2022 Active Start: 06-24-2022 End: 06-29-2022 metroNIDAZOLE (FLAGYL) table t 500 mg Start: 06-21-2022 End: 06-22-2022 take 500 mg intravenously every eight hours metroNIDAZOLE (FLAGYL) IVPB 500 mg oxyCODONE hydrochloride 5 mg oral tablet (16 sources) Opioid Agonist Start: 06-21-2022 End: 07-02-2022 oxyCODONE (ROXICODONE) 5 MG immediate release tablet Indications: Surgery follow-up , Pain Take 1 (one) tablet (5 mg total) by mouth every 4 (four) hours as needed (Days supply per fill: 7) . 12 tablet 0 06/29/2022 07/02/2022 Active Start: 03-31-2022 End: 04-07-2022 take 1 tablet by mouth every four hours as needed for pain oxyCODONE (ROXICODONE) 5 MG immediate release tablet Indications: Rectal prolapse Take 1 (one) tablet (5 mg total) by mouth every 4 (four) hours as needed (severe pain if unrelieved by tylenol) . 12 tablet 0 04/04/2022 04/07/2022 Active Start: 05-11-2017 End: 04-05-2019 oxyCODONE (ROXICODONE) 5 MG immediate release tablet Oxygen (20 sources) oxygen Inhale 4 L/min as needed Per patient, only used when walking or with activity . Active oxygen Inhale 4 L/min as needed Per patient, only used when walking or with activity . oxygen Inhale 2 L/min as needed Per patient, only used when walking or with activity . oxygen Inhale 2 L/min as needed Per patient, only used when walking or with activity . Active oxygen Inhale 2 L/min as needed Per patient, only used when walking or with activity . 0 Active oxygen Inhale 2 L/min as needed Per patient, only used when walking or with activity . 0 predniSONE 20 mg oral tablet (11 sources) Start: 02-19-2025 take 2 tablets by mouth once daily at breakfast predniSONE (DELTASONE) 20 MG tablet Take 2 (two) tablets (40 mg total) by mouth daily with breakfast Start: 02/19/25. 6 tablet 02/18/2025 1:49 PM EDT 02/19/2025 Active Start: 02-15-2025 End: 02-18-2025 take 40 mg by mouth once daily at breakfast 40 mg, Oral, Daily with breakfast, First dose on 02/15/25 at 0800 Start: 09-25-2024 End: 09-28-2024 take 2 tablets by mouth once daily predniSONE (DELTASONE) 10 MG tablet Take 2 (two) tablets (20 mg total) by mouth daily for 3 days . 6 tablet 09/25/2024 09/28/2024 Active Start: 07-08-2022 End: 07-13-2022 take 2 tablets by mouth once daily predniSONE (DELTASONE) 20 MG tablet Take 2 (two) tablets (40 mg total) by mouth daily for 5 days . 10 tablet 0 07/08/2022 07/13/2022 Active Start: 06-26-2022 End: 06-28-2022 predniSONE (DELTASONE) table t 40 mg Start: 05-07-2019 End: 05-07-2019 predniSONE (DELTASONE) table t 60 mg Start: 05-07-2019 End: 05-12-2019 take 2 tablets by mouth once daily predniSONE (DELTASONE) 10 MG tablet Take 2 (two) tablets (20 mg total) by mouth daily for 5 days . 10 tablet 0 05/07/2019 05/12/2019 Active Roflumilast (12 sources) Phosphodiesterase 4 Inhibitor Start: 06-17-2025 take 1 tablet by mouth once daily Roflumilast (Daliresp) 250 mcg tablet Active 250 ug PO daily June 17, 2025 3:25pm Stage 3 severe COPD by GOLD classification Chronic obstructive pulmonary disease, unspecified Start: 04-04-2025 End: 06-17-2025 take 1 tablet by mouth once daily Roflumilast (Daliresp) 250 mcg tablet Discontinued 250 ug PO daily April 04, 2025 12:00am June 17, 2025 3:27pm Stage 3 severe COPD by GOLD classification Chronic obstructive pulmonary disease, unspecified Start: 04-04-2025 take 1 tablet by ines th once daily Roflumilast (Daliresp) 250 mcg tablet Active 250 ug PO daily April 04, 2025 12:00am Stage 3 severe COPD by GOLD classification Chronic obstructive pulmonary disease, unspecified Start: 04-04-2025 take 1 tablet by ines th once daily Roflumilast (Daliresp) 250 mcg tablet Active 250 ug PO daily April 04, 2025 12:00am sulfamethoxazole 800 mg / trimethoprim 160 mg oral tablet (15 sources) Dihydrofolate Reductase Inhibitor Antibacterial, Sulfonamide Antimicrobial Start: 02-18-2025 take 1 tablet by mouth every twelve hours sulfamethoxazole-trimethoprim (BACTRIM DS,SEPTRA DS) 800-160 mg per tablet Take 1 (one) tablet by mouth every 12 (twelve) hours . 4 tablet 02/18/2025 1:49 PM EDT 02/18/2025 Active Start: 02-16-2025 End: 02-18-2025 take 1 tablet by mouth every twelve hours 1 tablet, Oral, Every 12 hours scheduled, First dose on 02/16/25 at 1230, For 5 days, Indication: Travelers Diarrhea Start: 05-11-2017 End: 04-05-2019 sulfamethoxazole-trimethopri m (BACTRIM DS,SEPTRA DS) 800-160 mg per tablet Start: 05-11-2017 sulfamethoxazo le-trimethoprim (BACTRIM DS,SEPTRA DS) 800-160 mg per tablet levothyroxine sodium 0.175 mg oral tablet (20 sources) l-Thyroxine Start: 02-13-2025 End: 02-18-2025 take 30 mL by mouth once daily 175 mcg, Oral, Daily (in the evening), First dose on Gege 02/13/25 at 2345, Avoid administration with soybean flour, cottonseed meal, walnuts, and dietary fiber. Administer at least 1 hour before breakfast. Hold continuous tube feeds for at least 1 hour before until 1 hour after each dose. Flush tube with 30mL of water before and after administration. Tube feed rate may need adjusted to meet caloric needs. Start: 09-22-2024 End: 09-25-2024 take 30 mL by mouth once daily 175 mcg, Oral, Daily (in the evening), First dose on 09/22/24 at 0030, Avoid administration with soybean flour, cottonseed meal, walnuts, and dietary fiber. Administer at least 1 hour before breakfast. Hold continuous tube feeds for at least 1 hour before until 1 hour after each dose. Flush tube with 30mL of water before and after administration. Tube feed rate may need adjusted to meet caloric needs. Start: 09-03-2024 End: 09-03-2024 Start: 01-01-2024 End: 05-16-2025 take 1 tablet by mouth once daily Levothyroxine 175 mcg tablet Discontinued 175 ug PO DAILY 90 0 November 29, 2024 2:08pm May 16, 2025 2:31pm thyroid Start: 06-05-2023 End: 01-01-2024 take 1 tablet by mouth once daily Levothyroxine 150 mcg tablet Discontinued 150 ug PO DAILY 90 0 August 09, 2023 12:59pm January 01, 2024 10:19am Start: 06-22-2022 End: 06-29-2022 levothyroxine (SYNTHROID, LE VOTHROID) tablet 175 mcg Start: 03-31-2022 End: 04-04-2022 take 112 ug by mouth once daily 112 mcg, Oral, Daily, First dose on Gege 03/31/22 at 0600, PACU to Post Procedure For patients on continuous tube feed: Hold TF from 1 hr before until 1 hr after each dose. TF rate may need adjustment to meet caloric needs. Start: 04-19-2021 End: 06-05-2023 take 1 tablet by mouth once daily Levothyroxine 175 mcg tablet Discontinued 175 ug PO DAILY 30 May 18, 2023 3:59pm June 05, 2023 1:51pm levothyroxine 15 0 mcg tablet Take 175 mcg by mouth once daily. Active take 1 tablet by ines once daily levothyroxine (SYNTHROID, LEVOTHROID) 112 MCG tablet Take 112 mcg by mouth daily 0 Active tiZANidine 4 mg oral tablet (20 sources) Central alpha-2 Adrenergic Agonist Start: 02-13-2025 End: 02-18-2025 take 12 mg by mouth at bedtime 12 mg, Oral, At bedtime, First dose on Gege 02/13/25 at 2345 Start: 09-22-2024 End: 09-25-2024 take 12 mg by mouth once daily 12 mg, Oral, Nightly, F irst dose on Mon09/22/24 at 2100 Start: 09-03-2024 End: 09-03-2024 take 4 mg by mouth twice daily 4 mg, Oral, 2 times prashant ly, First dose on Mon09/03/24 at 0900 Start: 09-02-2024 End: 09-03-2024 take 12 mg by mouth once daily as needed for muscle spasms 12 mg, Oral, Nightly PRN, muscle spasms, Starting on 09/02/24 at 2245 Start: 04-18-2023 End: 04-08-2025 take 1 tablet by mouth twice daily as needed for pain, then take 3 tablets by mouth once daily as needed for pain Tizanidine 4 mg tablet Discontinued 0 .ROUTE .COMPLEX 150 2 October 22, 2024 6:00pm April 08, 2025 6:03pm spasms Take 1 tablet orally twice daily and 3 tablets nightly as needed for muscle pain/spasm. Start: 04-19-2021 End: 12-01-2022 Tizanidine 4 mg tablet Disco ntinued 0 .ROUTE .COMPLEX 150 3 July 12, 2022 4:59pm October 06, 2022 7:06pm 1 tablet twice daily and 3 tablets nightly as needed Start: 06-18-2018 [facility] tiZANidine (ZANAFLEX) 2 mg oral tablet Take 1 tablet by mouth once daily. 06/18/2018 Active take 3 tablets by mo [facility] at bedtime, then take 2 tablets by mouth in the morning tiZANidine (ZANAFLEX) 4 MG tablet Take 3 (three) tablets (12 mg total) by mouth at bedtime In addition to taking 2 tablets in the morning . Active End: 02-18-2025 take 2 capsules by mouth once daily, then take 3 capsules by mouth at bedtime tiZANidine (ZANAFLEX) 4 MG capsule Take 2 (two) capsules (8 mg total) by mouth once daily In addition to taking 3 tablets at bedtime . 02/18/2025 Discontinued (Stop Taking at Discharge) take 1 capsule by mo uth twice daily tiZANidine (ZANAFLEX) 4 MG capsule Take 1 (one) capsule (4 mg total) by mouth 2 (two) times a day . Active take 1 capsule by mo uth once daily tiZANidine (ZANAFLEX) 4 MG capsule Take 1 (one) capsule (4 mg total) by mouth nightly Pt takes 3 pills for a total of 12mg . Active tiZANidine (ALINA FLEX) 4 MG capsule Take 4 mg by mouth nightly Pt takes 3 pills for a total of 12mg . 0 Active vitamin e 100 unt oral capsule (12 sources) Start: 01-06-2025 take 1 capsule by mouth once daily Vitamin E (Dl, Acetate) 45 mg (100 unit) capsule Active 45 mg PO daily January 06, 2025 1:00am Completed/Discontinued Medications Medication Drug Class(es) Dates Sig (Normalized) Sig (Original) acetaminophen 325 mg / butalbital 50 mg / caffeine 40 mg oral tablet (1 source) Barbiturate, Central Nervous System Stimulant, Methylxanthine Start: 06-25-2022 End: 06-29-2022 take 1 tablet by mouth every four hours as needed for headache butalbital-aceta minophen-caffein e (ESGIC) per tablet 1 tablet acetaminophen 325 mg / HYDROcodone bitartrate 5 mg oral tablet (11 sources) Opioid Agonist Start: 11-02-2020 End: 11-02-2020 HYDROcodone-acet aminophen (NORCO) 5-325 mg per tablet 1 tablet Start: 05-02-2017 End: 04-05-2019 take 1 tablet by mouth once daily as needed HYDROcodone-acetaminophen (NORCO) 5-325 mg per tablet Take 5-325 tablets by mouth daily as needed. 0 05/02/2017 04/05/2019 Discontinued (Therapy completed) acetaminophen 325 mg / oxyCODONE hydrochloride 5 mg oral tablet (12 sources) Opioid Agonist Start: 01-01-2025 End: 02-27-2025 Oxycodone-Acetaminophen (Percocet) 5-325 mg tablet Discontinued 1 {tbl} PO Q8H as needed for pain 12 5 0 January 01, 2025 February 27, 2025 2:33pm Acute neck pain Left cervical radiculopathy Cervicalgia Radiculopathy, cervical region aluminum hydroxide 40 mg/ml / magnesium hydroxide 40 mg/ml / simethicone 4 mg/ml oral suspension (1 source) Start: 09-02-2024 End: 09-03-2024 take 30 mL by mouth every four hours as needed alvimopan 12 mg oral capsule (1 source) Opioid Antagonist Start: 03-30-2022 End: 03-30-2022 alvimopan (ENTEREG) capsule 12 mg amLODIPine 5 mg oral tablet (20 sources) Dihydropyridine Calcium Channel Saira Start: 06-24-2022 End: 06-29-2022 take 10 mg by mouth once daily 10 mg, Oral, Daily, First dose on Mon06/24/22 at 1000 Start: 03-30-2022 End: 04-04-2022 take 10 mg by mouth once daily 10 mg, Oral, Daily, [facility]ir [facility] dose on Mon03/30/22 at 2000, PACU to Post Procedure Start: 06-18-2018 take 1 tablet by ines th once daily amLODIPine (NORVASC) 5 mg oral tablet Take 1 tablet by mouth once daily. 06/18/2018 Active take 2 tablets by [facility] once daily amLODIPine (NORVASC) 5 MG tablet Take 10 mg by mouth daily . 0 Active aspirin 81 mg chewable tablet (20 sources) Platelet Aggregation Inhibitor, Nonsteroidal Anti-inflammatory Drug Start: 02-14-2025 End: 02-18-2025 take 81 mg by mouth once daily 81 mg, Oral, Daily, First dose on Mon02/14/25 at 0900 Start: 09-22-2024 End: 09-25-2024 take 81 mg by mouth once daily 81 mg, Oral, Daily, Fir [facility] dose on Mon09/22/24 at 0900 Start: 09-02-2024 End: 09-03-2024 take 81 mg by mouth once daily 81 mg, Oral, Daily, Fir [facility] dose on 09/02/24 at 2000 Start: 04-18-2023 Aspirin (Adult Low Dose Aspirin) 81 mg tablet,delayed release (DR/EC) Active 81 mg PO DAILY April 18, 2023 12:00am [facility] Start: 03-30-2022 End: 04-04-2022 take 81 mg by mouth once daily 81 mg, Oral, Daily, Fir st dose on Mon03/30/22 at 2000, PACU to Post Procedure atorvastatin 10 mg oral tablet (2 sources) HMG-CoA Reductase Inhibitor Start: 02-13-2025 End: 02-18-2025 take 10 mg by mouth once daily 10 mg, Oral, Nightly, First dose on Gege 02/13/25 at 2345 Start: 09-02-2024 End: 09-03-2024 take 5 mg by mouth once daily 5 mg, Oral, Nightly, Fir st dose on 09/02/24 at 2100 azithromycin 250 mg oral tablet (5 sources) Macrolide Antimicrobial Start: 09-24-2024 End: 09-25-2024 take 250 mg by mouth once daily 250 mg, Oral, Daily, First dose on Mon09/24/24 at 0900, For 3 doses, Indication: COPD Exacerbation Start: 07-08-2022 azithromycin ( ZITHROMAX) 250 MG tablet Take 1 (one) tablet (250 mg total) by mouth daily Please take 2 tablets by mouth day 1 followed by 1 tablet by mouth for next 4 days. Total 6 tablets over 5 days. . 6 tablet 0 07/08/2022 Active Start: 06-27-2022 End: 06-28-2022 azithromycin (ZITHROMAX) tab let 250 mg Start: 06-26-2022 End: 06-26-2022 azithromycin (ZITHROMAX) tab let 500 mg azithromycin (ZITHROMAX) 250 mg in sodium chloride 0.9 % (NS) 250 mL IVPB (1 source) Start: 09-22-2024 End: 09-23-2024 250 mg, Intravenous, at 250 mL/hr, Every 24 hours scheduled, First dose on 09/22/24 at 2330, For 5 days, Indication: COPD Exacerbation budesonide 0.25 mg/ml inhalation suspension (1 source) Corticosteroid Start: 09-21-2024 End: 09-25-2024 0.5 mg, Nebulization, 2 times daily (RT), First dose on 09/21/24 at 2330 Budesonide / formoterol (1 source) Corticosteroid, beta2-Adrenergic Agonist Start: 03-30-2022 End: 04-04-2022 budesonide-formoteroL (SYMBICORT) 80-4.5 mcg/actuation inhaler 2 puff buPROPion hydrochloride 75 mg oral tablet (20 sources) Aminoketone Start: 06-21-2022 End: 06-29-2022 75 mg, Oral, 2 times daily, First dose on Mon06/21/22 at 2130 Do Not Crush or Chew if administering orally due to bitter taste. May be crushed if given via tube. Start: 04-19-2021 End: 09-03-2024 take 1 tablet by mouth once daily Bupropion Hcl 75 mg tablet Discontinued 75 mg PO DAILY April 19, 2021 12:00am October 06, 2022 4:08pm calcium chloride 0.0014 meq/ ml / potassium chloride 0.004 meq/ml / sodium chloride 0.103 meq/ml / sodium lactate 0.028 meq/ml injectable solution (3 sources) Start: 06-24-2022 End: 06-25-2022 lactated [facility]ers infusion Start: 03-30-2022 End: 03-31-2022 take 150 mL intravenously every hour 150 mL/hr, Intravenous, Continuous, Starting on Mon03/30/22 at 1530, For 24 hours, PACU to Post Procedure Start: 03-30-2022 End: 03-30-2022 lactated Ringers infusion cefoTEtan (CEFOTAN) 2000 mg in sodium chloride (NS) 0.9% 50 mL MBP (1 source) Start: 03-31-2022 End: 03-31-2022 take 2000 mg intravenously every twelve hours 2,000 mg, Intravenous, at 100 mL/hr, Every 12 hours, First dose on Gege 03/31/22 at 0000, For 2 doses, PACU to Post Procedure Indication: Other (specify) Indication: rectal surgery; cover for infection cefTRIAXone 2000 mg injection (2 sources) Cephalosporin Antibacterial Start: 09-21-2024 End: 09-23-2024 2,000 mg, Intravenous, at 100 mL/hr, Every 24 hours scheduled, First dose on 09/21/24 at 2330, Indication: CAP Start: 09-02-2024 End: 09-02-2024 2,000 mg, Intravenous, at 10 0 mL/hr, Once, On 09/02/24 at 1220, For 1 dose, Indication: CAP cefTRIAXone (ROCEPHIN) 1000 mg in sodium chloride (NS) 0.9% 50 mL MBP (1 source) Start: 06-21-2022 End: 06-22-2022 take 1000 mg intravenously every twenty-four hours cefTRIAXone (ROCEPHIN) 1000 mg in sodium chloride (NS) 0.9% 50 mL MBP celecoxib 100 mg oral capsule (1 source) Nonsteroidal Anti-inflammator y Drug Start: 03-30-2022 End: 03-30-2022 celecoxib (CELEBREX) capsule 200 mg chlorthalidone 25 mg oral tablet (20 sources) Thiazide-like Diuretic Start: 09-27-2022 End: 09-03-2024 take 1 tablet by mouth once daily Chlorthalidone 25 mg tablet Discontinued 25 mg PO DAILY March 20, 2023 12:00am April 18, 2023 2:41pm cholecalciferol 0.025 mg oral tablet (20 sources) Vitamin D Start: 09-22-2024 End: 09-25-2024 take 1000 [IU] by mouth once daily 1,000 Units, Oral, Daily, First dose on Mon09/22/24 at 0900 Start: 04-18-2023 take 1 capsule by mo [facility] once daily Cholecalciferol (Vitamin D3) 50 mcg (2,000 unit) capsule Active 50 ug PO DAILY April 18, 2023 12:00am vitamin Start: 03-08-2023 End: 04-18-2023 take 1 capsule by mouth every week Cholecalciferol (Vitamin D3) 1,250 mcg (50,000 unit) capsule Discontinued 1250 ug PO EVERY WEEK 02 07March 08, 2023 12:00am April 18, 2023 2:41pm Start: 12-01-2022 End: 03-08-2023 take 1 capsule by mouth once daily Cholecalciferol (Vitamin D3) 50 mcg (2,000 unit) capsule Discontinued 50 ug PO DAILY December 01, 2022 1:00am March 08, 2023 4:07pm Start: 03-31-2022 End: 04-04-2022 take 1000 [IU] by mouth once daily 1,000 Units, Oral, Daily, First dose on Gege 03/31/22 at 0900, PACU to Post Procedure Start: 04-19-2021 End: 06-21-2021 take 1 capsule by mouth once daily Cholecalciferol (Vitamin D3) 50 mcg (2,000 unit) capsule Discontinued 50 ug PO DAILY April 19, 2021 12:00am June 21, 2021 6:47pm take 1 tablet by [facility] every week cholecalciferol (vitamin D3) 50 mcg (2,000 unit) tablet Take 1 tablet by mouth once daily. Can't afford it Takes 50,000 weekly Active dexamethasone (DECADRON) 1 mL, triamcinolone acetonide (KENALOG-40) 40 mg/mL 1 mL (1 source) Start: 11-09-2020 End: 11-09-2020 dexamethasone (DECADRON) 1 mL, triamcinolone acetonide (KENALOG-40) 40 mg/mL 1 mL dextrose 10% and 0.45% NaCl 1000ml infusion (1 source) Start: 02-13-2025 End: 02-14-2025 take 150 mL intravenously every hour 150 mL/hr, Intravenous, Continuous, Starting on Gege 02/13/25 at 2355, For 10 hours dextrose 10% and 0.9% NaCl 1000ml infusion (1 source) Start: 02-14-2025 End: 02-16-2025 take 150 mL intravenously every hour 150 mL/hr, Intravenous, Continuous, Starting on Mon02/14/25 at 2345 docusate sodium 100 mg oral capsule (2 sources) Start: 09-22-2024 End: 09-25-2024 take 100 mg by mouth once daily 100 mg, Oral, Daily, First dose on Mon09/22/24 at 0900, [] Hold for loose stools. DO NOT CRUSH OR CHEW. Start: 09-03-2024 End: 09-03-2024 take 100 mg by mouth once daily 100 mg, Oral, Daily, F irst dose on Mon09/03/24 at 0900, [] Hold for loose stools. DO NOT CRUSH OR CHEW. docusate sodium 50 mg / sennosides, fdc 8.6 mg oral tablet (1 source) Start: 02-14-2025 End: 02-16-2025 take 1 tablet by mouth twice daily 1 tablet, Oral, 2 times daily, First dose on Mon02/14/25 at 0900, NOT for abdominal surgery patients. Hold for loose stools. Do Not Crush or Chew if administering orally due to bitter taste. May be crushed if given via tube. doxepin hydrochloride 100 mg oral capsule (20 sources) Tricyclic Antidepressant Start: 02-13-2025 End: 02-18-2025 take 100 mg by mouth once daily 100 mg, Oral, Nightly, First dose on Mon02/13/25 at 2345, May cause QT interval prolongation. Start: 09-22-2024 End: 09-25-2024 take 100 mg by mouth once daily 100 mg, Oral, Nightly, First dose on 09/22/24 at 0030, May cause QT interval prolongation. Start: 09-02-2024 End: 09-03-2024 take 75 mg by mouth once daily as needed for sleep 75 mg, Oral, Nightly PRN, sleep, Starting on 09/02/24 at 1735, May cause QT interval prolongation. Start: 07-24-2023 End: 09-11-2023 Doxepin 100 mg capsule Disco ntinued PO July 24, 2023 12:00am September 11, 2023 2:17pm Start: 02-07-2023 End: 04-08-2025 take 1 capsule by mouth at bedtime Doxepin 100 mg capsule Discontinued 100 mg PO AT BEDTIME 30 0 March 04, 2025 7:59am April 08, 2025 6:03pm Start: 06-21-2022 End: 06-29-2022 take 50 mg by mouth once daily as needed for sleep 50 mg, Oral, Nightly PRN, sleep, Starting on Mon06/21/22 at 2022 May cause QT interval prolongation. Start: 03-30-2022 End: 04-04-2022 take 50 mg by mouth once daily as needed for sleep 50 mg, Oral, Nightly PRN, sleep, Starting on Mon03/30/22 at 1924, PACU to Post Procedure May cause QT interval prolongation. Start: 04-19-2021 End: 02-07-2023 take 1 capsule by mouth at bedtime Doxepin 75 mg capsule Discontinued 75 mg PO AT BEDTIME 30 4 June 06, 2022 5:45pm October 06, 2022 7:06pm Doxepin 50 mg or al Cap Take 75 mg by mouth every night at bedtime. Active take 1 capsule by mo uth once daily as needed for sleep doxepin (SINEQUAN) 50 MG capsule Take 50 mg by mouth nightly as needed for sleep. 0 Active doxycycline hyclate 100 mg oral capsule (2 sources) Tetracycline-class Drug Start: 02-14-2025 End: 02-18-2025 100 mg, Oral, 2 times daily, First dose on Mon02/14/25 at 2100, For 10 doses, Do not crush or open. Patient to sit up after administration for 30 minutes after taking and take with at least 8 ounces of water Take 1 hour before or 4 hours after metallic cations (e.g.antacids, aluminum,magnesium, calcium, ferrous sulfate), Indication: Bronchitis Start: 09-02-2024 End: 09-03-2024 take 100 mg by mouth every twelve hours 100 mg, Oral, Every 12 hours, First dose on Mon09/02/24 at 2000, Do not crush or open. Patient to sit up after administration for 30 minutes after taking and take with at least 8 ounces of water Take 1 hour before or 4 hours after metallic cations (e.g.antacids, aluminum,magnesium, calcium, ferrous sulfate), Indication: Bronchitis doxycycline (VIBRAMYCIN) 100 mg in sodium chloride 0.9 % (NS) 100 mL IVPB (1 source) Start: 02-14-2025 End: 02-14-2025 take 100 mg intravenously every twelve hours 100 mg, Intravenous, at 100 mL/hr, Every 12 hours, First dose on Mon02/14/25 at 0000, Indication: Bronchitis DULoxetine 60 mg delayed release oral capsule (20 sources) Serotonin and Norepinephrine Reuptake Inhibitor Start: 03-30-2022 End: 04-04-2022 take 60 mg by mouth once daily 60 mg, Oral, Daily, First dose on Mon03/30/22 at 2100, PACU to Post Procedure DO NOT CRUSH OR CHEW. Start: 04-19-2021 End: 04-17-2025 take 1 capsule by mouth once daily Duloxetine 60 mg capsule,delayed release(DR/EC) Discontinued 60 mg PO DAILY 90 0 April 07, 2025 11:14pm April 17, 2025 12:00pm [facility] take 2 capsules by m outh once daily DULoxetine (CYMBALTA) 30 mg oral capsule, delayed release Take 2 capsules by mouth once daily. Active 0.4 ml enoxaparin sodium 100 mg/ml prefilled syringe (3 sources) Low Molecular Weight Heparin Start: 09-24-2024 End: 09-25-2024 inject 40 mg by subcutaneous injection once daily 40 mg, Subcutaneous, Daily, First dose (after last modification) on Mon09/24/24 at 0900, Administer in abdomen unless otherwise directed by prescriber. Notify physician if patient refuses., Prophylaxis Indication: VTE Prophylaxis Start: 09-23-2024 End: 09-23-2024 inject 30 mg by subcutaneous injection once daily 30 mg, Subcutaneous, Daily, First dose on Mon09/23/24 at 0900, Administer in abdomen unless otherwise directed by prescriber. Notify physician if patient refuses., Prophylaxis Indication: VTE Prophylaxis Start: 09-02-2024 End: 09-03-2024 inject 30 mg by subcutaneous injection once daily 30 mg, Subcutaneous, Daily, First dose on Mon09/02/24 at 2000, Administer in abdomen unless otherwise directed by prescriber. Notify physician if patient refuses., Indication: VTE Prophylaxis fentaNYL (SUBLIMAZE) inj syringe 25 mcg (1 source) Start: 02-13-2025 End: 02-18-2025 25 mcg, Intravenous, As needed, moderate to severe pain, Starting on Gege 02/13/25 at 1847, For 2 doses ferrous sulfate 325 mg oral tablet (20 sources) Start: 09-03-2024 End: 09-03-2024 take 1 dose by mouth every two hours 325 mg, Oral, Daily with breakfast, First dose on Mon09/03/24 at 0900, Do not administer within 2 hours of doxycycline Start: 04-18-2023 End: 09-25-2024 take 1 tablet by mouth once daily Ferrous Sulfate 325 mg (65 mg iron) tablet Active 325 mg PO DAILY April 18, 2023 12:00am ferrous sulfate 324 mg (65 mg iron) tablet,delayed release Take 324 mg by mouth. Active fluticasone propionate 0.05 mg/actuat metered dose nasal spray (20 sources) Corticosteroid Start: 08-04-2021 End: 09-25-2024 take 2 spray(s) nasal route once daily fluticasone propionate (FLONASE) 50 mcg/actuation nasal spray Indications: Dysfunction of Eustachian tube, unspecified laterality , Chronic rhinitis Instill 2 (two) sprays into each nostril daily . 16 g 3 08/04/2021 09/25/2024 Discontinued (Stop Taking at Discharge) fluticasone/umecli din/vilanter (TRELEGY ELLIPTA INHL) (20 sources) End: 04-04-2022 fluticasone/umeclidi n/vilanter (TRELEGY ELLIPTA INHL) Inhale . 0 04/04/2022 Discontinued (Stop Taking at Discharge) End: 12-30-2021 fluticasone/umeclidin/vilant er (TRELEGY ELLIPTA INHL) Inhale . 0 12/30/2021 Discontinued (Reorder) fluticasone/umec lidin/vilanter (TRELEGY ELLIPTA INHL) Inhale . 0 Active 60 actuat formoterol fumarate 0.005 mg/actuat / mometasone furoate 0.2 mg/actuat metered dose inhaler (1 source) Corticosteroid, beta2-Adrenergic Agonist Start: 02-14-2025 End: 02-18-2025 take 2 puff(s) by inhalation twice daily 2 puff, Inhalation, 2 times daily (RT), First dose on Mon02/14/25 at 0900 gabapentin 100 mg oral capsule (20 sources) Anti-epileptic Agent Start: 07-07-2021 End: 04-04-2022 take 100 mg by mouth three times daily 100 mg, Oral, 3 times daily, First dose on Mon03/30/22 at 2100, PACU to Post Procedure Start: 07-07-2021 take 2 capsules by m outh three times daily gabapentin (NEURONTIN) 100 MG capsule Take 200 mg by mouth 3 (three) times a day . 0 07/07/2021 Active Start: 07-19-2016 End: 04-05-2019 take 1 capsule by mouth once daily gabapentin (NEURONTIN) 300 MG capsule Take 1 capsule by mouth daily. 0 08/25/2016 04/05/2019 Discontinued (Therapy completed) 1000 ml glucose 100 mg/ml injection (1 source) Start: 06-21-2022 End: 06-21-2022 dextrose (D10W) 10% bolus 250 mL 250 ml glucose 50 mg/ml / sodium chloride 4.5 mg/ml injection (1 source) Start: 02-14-2025 End: 02-14-2025 take 100 mL intravenously every hour 100 mL/hr, Intravenous, Continuous, Starting on Mon02/14/25 at 1515, For 24 hours 1 ml heparin sodium, porcine 5000 unt/ml injection (3 sources) Unfractionated Heparin, Anti-coagulant Start: 02-13-2025 End: 02-18-2025 inject 5000 [IU] by subcutaneous injection every eight hours 5,000 Units, Subcutaneous, Every 8 hours scheduled, First dose on Mon02/13/25 at 2345, Notify physician if patient refuses. Start: 03-31-2022 End: 04-04-2022 inject 5000 [IU] by subcutaneous injection every eight hours 5,000 Units, Subcutaneous, Every 8 hours scheduled, First dose on Mon03/31/22 at 0600, PACU to Post Procedure Notify physician if patient refuses. Start: 03-30-2022 End: 03-30-2022 heparin (porcine) injection 5,000 Units 1 ml hydrALAZINE hydrochloride 20 mg/ml injection (5 sources) Arteriolar Vasodilator Start: 09-24-2024 End: 09-25-2024 take 10 mg intravenously every six hours as needed 10 mg, Intravenous, Every 6 hours PRN, for systolic bp greater than 170, Starting on Mon09/24/24 at 1428 Start: 06-25-2022 End: 06-27-2022 hydrALAZINE (APRESOLINE) tab let 25 mg Start: 06-24-2022 End: 06-25-2022 hydrALAZINE (APRESOLINE) tab let 10 mg Start: 06-24-2022 End: 06-29-2022 take 10 mg intravenously every four hours as needed hydrALAZINE (APRESOLINE) injection 10 mg Start: 03-30-2022 End: 03-30-2022 hydrALAZINE (APRESOLINE) injection 10 mg 0.5 ml HYDROmorphone hydrochloride 1 mg/ml prefilled syringe (1 source) Opioid Agonist Start: 03-31-2022 End: 04-02-2022 take 0.25 mg intravenously every three hours as needed HYDROmorphone (DILAUDID) injection 0.25 mg HYDROmorphone in 0.9 % NaCl (DILAUDID) 15 mg/30 mL (0.5 mg/mL) PAPERHANGER PIPE (1 source) Start: 03-30-2022 End: 03-31-2022 Intravenous, Continuous, Starting on Mon03/30/22 at 2000, PACU to Post Procedure Use Port-Free Tubing in Non-Procedural Areas. hyoscyamine sulfate 0.125 mg oral tablet (16 sources) Start: 12-11-2023 End: 06-17-2024 take 1 tablet by mouth four times daily Hyoscyamine Sulfate 0.125 mg tablet Discontinued 0.125 mg PO 4 TIMES DAILY December 11, 2023 1:00am June 17, 2024 4:17pm Start: 12-11-2023 Hyoscyamine Cristina lfate Active MG PO December 11, 2023 1:00am insulin lispro 100 unt/ml injectable solution (2 sources) Insulin Analog Start: 03-31-2022 End: 04-04-2022 insulin lispro (AdmeLOG,HumaLOG) injection 0-15 Units Start: 03-31-2022 End: 04-04-2022 inject 1 dose by subcutaneous injection once daily before mealtime 0-30 Units, Subcutaneous, 3 times daily before meals, First dose on Gege 03/31/22 at 0730, PACU to Post Procedure Dose should be given 10-15 minutes before a meal. If poor oral intake, nausea or blood glucose value < 80 before meal, give of the dose (rounded up to nearest unit) immediately after meal completed. If patient skipping meal, hold base prandial dose and continue to use corrective insulin as ordered. Once diet resumed, total base prandial + corrective doses may be given. Prandial Insulin Dosing Method: NO Prandial Dose - Corrective Scale ONLY Corrective Insulin Regimen (select desired scale to cover BG result): Normal Sensitivity Scale For Downtime Calculator, use: Insulin SC MEALtime PREprandial insulin, regular, human 100 unt/ml injectable solution (1 source) Insulin Start: 06-21-2022 End: 06-21-2022 insulin regular (HumuLIN R, NovoLIN R) injection 8 Units iopamidoL (ISOVUE-370) 370 mg iodine /mL (76 %) injection 75 mL (1 source) Start: 02-13-2025 End: 02-13-2025 75 mL, Intravenous, Once in imaging, contrast, Starting on Gege 02/13/25 at 1705, For 1 dose iron carbonyl 15 mg chewable tablet (20 sources) Start: 12-01-2022 End: 04-18-2023 take 1 tablet by mouth once daily Iron, Carbonyl (Iron Chews) 15 mg tablet,chewable Discontinued 15 mg PO DAILY December 01, 2022 1:00am April 18, 2023 2:41pm 4 ml labetalol hydrochloride 5 mg/ml cartridge (8 sources) beta-Adrenergic Saira Start: 06-25-2022 End: 06-25-2022 labetaloL (NORMODYNE) injection 5 mg Start: 06-24-2022 End: 06-24-2022 labetaloL (NORMODYNE) inject ion 5 mg Start: 03-30-2022 End: 03-30-2022 5 mg, Intravenous, Every 5 m in PRN, SBP greater than 160 or DBP greater than 90, Starting on Mon03/30/22 at 1443, For 4 doses, PACU (only) [] Do not give more than 20 mg total. [] Hold for HR less than 50. Start: 03-30-2022 End: 04-04-2022 take 10 mg intravenously every four hours as needed labetaloL (NORMODYNE,TRANDATE) injection 10 mg Start: 04-14-2021 End: 04-14-2021 labetaloL (NORMODYNE) inject ion 20 mg levalbuterol 2.5 mg/ml inhalation solution (1 source) beta2-Adrenergic Agonist Start: 03-30-2022 End: 04-04-2022 take 1.25 mg by inhalation every six hours as needed for wheezing 1.25 mg, Nebulization, Every 6 hours PRN (RT), wheezing, Starting on Mon03/30/22 at 1924, PACU to Post Procedure QS to total volume of 3ml with NS loperamide hydrochloride 2 mg oral tablet (20 sources) Opioid Agonist Start: 12-01-2022 End: 12-11-2023 take 1 tablet by mouth every six hours as needed Loperamide (Imodium A-D) 2 mg tablet Discontinued 2 mg PO EVERY 6 HOURS as needed for loose stool 30 December 01, 2022 1:00am December 11, 2023 8:31am Start: 06-22-2022 End: 07-29-2022 take 1 capsule by mouth three times daily loperamide (IMODIUM) 2 mg capsule Take 1 (one) capsule (2 mg total) by mouth 3 (three) times a day . 90 capsule 0 06/29/2022 07/29/2022 Active loratadine 10 mg oral tablet (1 source) Start: 09-22-2024 End: 09-25-2024 take 10 mg by mouth once daily 10 mg, Oral, Daily, First dose on 09/22/24 at 0900 lovastatin 10 mg oral tablet (20 sources) HMG-CoA Reductase Inhibitor Start: 06-05-2023 End: 10-17-2024 take 1 tablet by mouth once daily in the evening Lovastatin 10 mg tablet Discontinued 10 mg PO EVERY EVENING 90 March 06, 2024 11:54am October 17, 2024 8:41am cholesterol 50 ml magnesium sulfate 40 mg/ml injection (4 sources) Start: 02-17-2025 End: 02-17-2025 2 g, Intravenous, at 50 mL/hr, Once, On Mon02/17/25 at 1145, For 1 dose Start: 09-02-2024 End: 09-02-2024 2 g, Intravenous, at 50 mL/h r, Once, On Mon09/02/24 at 1130, For 1 dose Start: 06-28-2022 End: 06-29-2022 magnesium sulfate 2 g in fabián rile water (SW) 50 mL IVPB Start: 06-25-2022 End: 06-25-2022 magnesium sulfate 2 g in fabián rile water (SW) 50 mL IVPB meclizine hydrochloride 25 mg oral tablet (20 sources) Antiemetic Start: 04-19-2021 End: 06-21-2021 take 1 tablet by mouth twice daily as needed for dizziness Meclizine 25 mg tablet Discontinued 25 mg PO TWICE A DAY as needed for dizziness 60 1 April 19, 2021 6:08pm June 21, 2021 6:47pm Start: 04-19-2021 End: 04-19-2021 take 1 tablet by mouth once daily Meclizine 25 mg tablet Discontinued 25 mg PO DAILY April 19, 2021 12:00am April 19, 2021 6:08pm melatonin 5 mg oral tablet (2 sources) Start: 09-21-2024 End: 09-25-2024 Start: 09-02-2024 End: 09-03-2024 metFORMIN hydrochloride 500 mg oral tablet (18 sources) Biguanide Start: 03-30-2022 End: 03-31-2022 take 30 mL by mouth twice daily 500 mg, Oral, 2 times daily, First dose on Mon03/30/22 at 2100, PACU to Post Procedure Note: Guidelines recommend that metformin be held for 48 hours after use of iodinated contrast media (IVP Dye) in patients with an eGFR less than 30 ml/min/1.73m2, with a history of hepatic disease, alcoholism or heart failure, or in patients who will receive intra-arterial iodinated contrast. Start: 07-13-2021 End: 06-29-2022 take 1 tablet by mouth twice daily metFORMIN (GLUCOPHAGE) 500 MG tablet Take 500 mg by mouth 2 (two) times a day . 0 07/13/2021 06/29/2022 Discontinued (Stop Taking at Discharge) methylPREDNISolone 40 mg injection (8 sources) Corticosteroid Start: 02-14-2025 End: 02-14-2025 take 40 mg intravenously every eight hours 40 mg, Intravenous, Every 8 hours, First dose on Mon02/14/25 at 0200 Start: 02-13-2025 End: 02-13-2025 60 mg, Intravenous, Once, On Gege 02/13/25 at 1705, For 1 dose Start: 09-21-2024 End: 09-24-2024 40 mg, Intravenous, Every 8 hours scheduled, First dose on 09/21/24 at 2330, For 3 days Start: 09-21-2024 End: 09-21-2024 125 mg, Intravenous, Once, O n 09/21/24 at 2035, For 1 dose Start: 09-02-2024 End: 09-03-2024 40 mg, Intravenous, Every 12 hours scheduled, First dose on 09/02/24 at 2100, For 4 doses Start: 09-02-2024 End: 09-02-2024 125 mg, Intravenous, Once, O n 09/02/24 at 1130, For 1 dose Start: 10-16-2023 End: 10-16-2023 methylPREDNISolone acetate ( DEPO-medrol) injection 80 mg Start: 09-15-2020 End: 09-15-2020 methylPREDNISolone acetate ( DEPO-medrol) injection 40 mg 1 ml morphine sulfate 2 mg/ml cartridge (2 sources) Opioid Agonist Start: 02-13-2025 End: 02-18-2025 take 2-4 mg intravenously every three hours as needed Start: 06-21-2022 End: 06-21-2022 morphine syringe 4 mg Multivit With Min-Folic Acid (One Daily Womens 50 Plus) 0.4 mg tablet (20 sources) Start: 04-19-2021 End: 07-24-2023 Multivit With Min-Folic Acid (One Daily Womens 50 Plus) 0.4 mg tablet Discontinued 1 {tbl} PO DAILY April 19, 2021 12:00am July 24, 2023 2:41pm Start: 04-19-2021 End: 07-24-2023 take 1 tablet by mouth once daily Multivit With Min-Folic Acid (One Daily Womens 50 Plus) 0.4 mg tablet Discontinued 1 TABLET PO DAILY April 19, 2021 12:00am July 24, 2023 2:41pm Start: 04-19-2021 End: 07-24-2023 take 1 tablet by mouth once daily Multivit With Min-Folic Acid (One Daily Womens 50 Plus) 0.4 mg tablet Discontinued 1 TABLET PO DAILY April 18, 2021 11:00pm July 24, 2023 1:41pm Start: 04-19-2021 take 1 tablet by ines th once daily Multivit With Min-Folic Acid (One Daily Womens 50 Plus) 0.4 mg tablet Active 1 TABLET PO DAILY April 19, 2021 12:00am Start: 04-19-2021 take 1 tablet by ines th once daily Multivit With Min-Folic Acid (One Daily Womens 50 Plus) 0.4 mg tablet Active 1 TABLET PO DAILY April 18, 2021 11:00pm naloxone (NARCAN) injection 0.1 mg (2 sources) Start: 02-13-2025 End: 02-18-2025 naloxone (NARCAN) injection 0.1 mg Start: 06-21-2022 End: 06-29-2022 naloxone (NARCAN) injection 0.1 mg 24 hr NIFEdipine 30 mg extended release oral tablet (20 sources) Dihydropyridine Calcium Channel Saira Start: 02-14-2025 End: 02-18-2025 take 30 mg by mouth once daily 30 mg, Oral, Daily, First dose on Mon02/14/25 at 0900, DO NOT CRUSH OR CHEW. Start: 09-22-2024 End: 09-25-2024 take 30 mg by mouth once daily 30 mg, Oral, Daily, [facility]ir [facility] dose on Mon09/22/24 at 0900, Hold for SBP Start: 09-02-2024 End: 09-03-2024 take 30 mg by mouth once daily 30 mg, Oral, Daily, [facility] dose on 09/02/24 at 2000, DO NOT CRUSH OR CHEW. Start: 08-15-2022 End: 04-17-2025 take 1 tablet by mouth once daily Nifedipine 30 mg tablet extended release Discontinued 30 mg PO DAILY 90 April 03, 2025 8:16am April 17, 2025 12:00pm blood pressure Start: 08-15-2022 NIFEdipine (AD ALAT CC) 30 MG 24 hr tablet 08/15/2022 Active nitroglycerin 0.4 mg sublingual tablet (2 sources) Nitrate Vasodilator Start: 02-13-2025 End: 02-18-2025 0.4 mg, Sublingual, Every 5 min PRN, chest pain, Starting on Gege 02/13/25 at 1704, For 2 doses, Anginal pain, may repeat [id number] x2, then notify physician. DO NOT CRUSH OR CHEW. Start: 09-02-2024 End: 09-03-2024 omeprazole 40 mg delayed release oral capsule (20 sources) Proton Pump Inhibitor Start: 12-11-2023 End: 04-17-2025 take 1 capsule by mouth once daily Omeprazole 40 mg capsule,delayed release(DR/EC) Discontinued 40 mg PO DAILY November 22, 2024 5:45pm April 17, 2025 12:00pm for acid reflux Start: 04-19-2021 End: 06-05-2023 take 1 capsule by mouth once daily Omeprazole 40 mg capsule,delayed release(DR/EC) Discontinued 40 mg PO DAILY April 19, 2021 12:00am June 05, 2023 11:03am take 2 capsules by m outh once daily omeprazole (PRILOSEC) 20 mg oral capsule, delayed-release Take 2 capsules by mouth once daily. Active End: 04-05-2019 take 1 capsule by mouth once daily omeprazole (PRILOSEC) 10 MG capsule Take 10 mg by mouth daily. 0 04/05/2019 Discontinued (Therapy completed) ondansetron 4 mg disintegrating oral tablet (2 sources) Serotonin-3 Receptor Antagonist Start: 09-02-2024 End: 09-03-2024 take 1 tablet by mouth every six hours as needed for nausea and vomiting Start: 06-21-2022 End: 06-21-2022 ondansetron (ZOFRAN) injecti on 4 mg ondansetron (ZOFRAN-ODT) disintegrating tablet 4 mg (2 sources) Start: 02-13-2025 End: 02-18-2025 take 1 tablet by mouth every six hours as needed for nausea and vomiting ondansetron (ZOFRAN-ODT) disintegrating tablet 4 mg Start: 03-30-2022 End: 04-04-2022 take 1 tablet by mouth every six hours as needed for nausea and vomiting ondansetron (ZOFRAN-ODT) disintegrating tablet 4 mg pantoprazole 40 mg delayed release oral tablet (7 sources) Proton Pump Inhibitor Start: 02-14-2025 End: 02-18-2025 take 40 mg by mouth once daily 40 mg, Oral, Daily, First dose on Mon02/14/25 at 0900, DO NOT CRUSH OR CHEW. Start: 09-22-2024 End: 09-25-2024 take 40 mg by mouth once daily 40 mg, Oral, Daily, Fir [facility] dose on Mon09/22/24 at 0900, DO NOT CRUSH OR CHEW. Start: 09-02-2024 End: 09-03-2024 take 40 mg by mouth once daily 40 mg, Oral, Daily, Fir [facility] dose on Mon09/02/24 at 2000, DO NOT CRUSH OR CHEW. Start: 06-28-2022 End: 06-29-2022 pantoprazole (PROTONIX) EC t ablet 40 mg Start: 06-22-2022 End: 06-27-2022 pantoprazole (PROTONIX) inje ction 40 mg Start: 06-22-2022 End: 06-22-2022 take 40 mg by mouth once daily 40 mg, Oral, Daily, Fir [facility] dose on Mon06/22/22 at 0900 DO NOT CRUSH OR CHEW. Start: 03-30-2022 End: 04-04-2022 take 40 mg by mouth once daily 40 mg, Oral, Daily, Fir [facility] dose on Mon03/30/22 at 2000, PACU to Post Procedure DO NOT CRUSH OR CHEW. piperacillin 3000 mg / tazobactam 375 mg injection (2 sources) Penicillin-class Antibacterial, beta Lactamase Inhibitor Start: 02-13-2025 End: 02-14-2025 3.375 g, Intravenous, at 12.5 mL/hr, Once, On Mon02/13/25 at 2130, For 1 dose, Start infuse 3 hours after loading dose of Zosyn 4.5 gm VESICANT, Indication: Sepsis Start: 02-13-2025 End: 02-13-2025 4.5 g, Intravenous, at 200 m L/hr, Once, On Mon02/13/25 at 1800, For 1 dose, VESICANT, Indication: Sepsis prochlorperazine 5 mg/ml injectable solution (1 source) Phenothiazine Start: 06-26-2022 End: 06-29-2022 take 5 mg intravenously every six hours as needed for nausea and vomiting prochlorperazine (COMPAZINE) injection 5 mg RABEprazole sodium 20 mg delayed release oral tablet (20 sources) Proton Pump Inhibitor Start: 06-05-2023 End: 12-11-2023 take 1 tablet by mouth once daily Rabeprazole 20 mg tablet,delayed release (DR/EC) Discontinued 20 mg PO DAILY 90 0 November 13, 2023 12:54pm December 11, 2023 9:15am rifAXIMin 550 mg oral tablet (17 sources) Rifamycin Antibacterial Start: 07-02-2024 End: 02-18-2025 take 1 tablet by mouth three times daily Rifaximin (Xifaxan) 550 mg tablet Discontinued 550 mg PO THREE TIMES A DAY July 02, 2024 12:00am January 06, 2025 11:22am sennosides, fdc 8.6 mg oral tablet (2 sources) Start: 09-21-2024 End: 09-25-2024 Start: 09-02-2024 End: 09-03-2024 10 ml sodium bicarbonate 84 mg/ml injection (1 source) Start: 06-21-2022 End: 06-21-2022 sodium bicarbonate 1 mEq/mL (8.4 %) injection 50 mEq 1000 ml sodium chloride 9 mg /ml injection (16 sources) Start: 02-15-2025 End: 02-15-2025 1,000 mL/hr (rounded to 999 mL/hr), Intravenous, Once, On 02/15/25 at 0515, For 1 dose Start: 02-13-2025 End: 02-18-2025 sodium chloride (PF) (NS) fl ush 5 mL Start: 02-13-2025 End: 02-13-2025 500 mL, Intravenous, at 967. 7 mL/hr, Once, On Gege 02/13/25 at 1635, For 1 dose Start: 02-13-2025 End: 02-18-2025 sodium chloride (PF) (NS) fl ush 5 mL Start: 09-22-2024 End: 09-23-2024 take 75 mL intravenously every hour 75 mL/hr, Intraven ous, Continuous, Starting on 09/22/24 at 0030, For 1 day Start: 09-21-2024 End: 09-25-2024 sodium chloride (PF) (NS) fl ush 5 mL Start: 09-03-2024 End: 09-03-2024 take 100 mL intravenously every hour 100 mL/hr, Intrav enous, Continuous, Starting on Tu09/03/24 at 0930, For 5 hours Start: 09-03-2024 End: 09-03-2024 sodium chloride (PF) (NS) fl ush 5 mL Start: 06-27-2022 End: 06-29-2022 sodium chloride 0.9% (NS) Start: 06-21-2022 End: 06-29-2022 sodium chloride (PF) (NS) fl ush 5 mL Start: 06-21-2022 End: 06-21-2022 sodium chloride 0.9% (NS) kimber garry 500 mL Start: 06-21-2022 End: 06-24-2022 sodium chloride 0.9% (NS) Start: 03-31-2022 End: 04-01-2022 take 100 mL intravenously every hour 100 mL/hr, Intrav enous, Continuous, Starting on Gege 03/31/22 at 1300, For 24 hours, PACU to Post Procedure Start: 03-30-2022 End: 04-04-2022 sodium chloride (PF) (NS) fl ush 5 mL Start: 04-14-2021 End: 04-14-2021 sodium chloride 0.9% (NS) kimber garry 1,000 mL sodium zirconium cyclosilicate [id number] mg powder for oral suspension (1 source) Start: 09-21-2024 End: 09-22-2024 take 10 g by mouth every four hours 10 g, Oral, Every 4 hours, First dose on 09/21/24 at 2245, For 2 doses, Administer other enteral medications greater than or equal to 2 hours before or 2 hours after dose. Empty entire contents of the packet(s) into a glass with greater than or equal to 3 tablespoons (45 mL) of water. Stir well and drink immediately; if powder remains in the glass, add water, stir and drink immediately; repeat until no powder remains. NOT for rectal admininstration tamsulosin hydrochloride 0.4 mg oral capsule (1 source) alpha-Adrenergic Saira Start: 04-01-2022 End: 04-04-2022 tamsulosin (FLOMAX) 24 hr capsule 0.4 mg 10 actuat tiotropium 0.0025 mg/actuat inhalation spray (2 sources) Anticholinergic Start: 09-22-2024 End: 09-25-2024 take 2 puff(s) by inhalation once daily 2 puff, Inhalation, Daily (RT), First dose on 09/22/24 at 0900 Start: 03-31-2022 End: 04-04-2022 tiotropium bromide (SPIRIVA RESPIMAT) 2.5 mcg/actuation inhaler 2 puff tiotropium bromide (SPIRIVA RESPIMAT) 2.5 mcg/actuation inhaler 2 puff (1 source) Start: 09-02-2024 End: 09-03-2024 tiotropium bromide (SPIRIVA RESPIMAT) 2.5 mcg/actuation inhaler 2 puff traZODone hydrochloride 50 mg oral tablet (1 source) Serotonin Reuptake Inhibitor Start: 03-30-2022 End: 04-04-2022 take 50 mg by mouth once daily as needed for sleep 50 mg, Oral, Nightly PRN, sleep, Starting on Mon03/30/22 at 1924, PACU to Post Procedure [] May repeat X1 in 30 minutes if still awake. triheptanoin 1000 mg/ml oral solution (20 sources) Start: 06-12-2024 End: 2025 Triheptanoin (Dojolvi) 8.3 kcal/mL liquid Discontinued 166 kCal/[oz_av] PO TWICE A DAY June 12, 2024 12:00am 2025 1:25pm Start: 02-28-2023 End: 02-05-2025 take 20 mL by mouth three times daily Dojolvi 8.3 kcal/mL oral liquid (triheptanoin) Take 20 mL by mouth three times a day.Calculated daily calorie 1667 kcal.Target calories from Dojolvi 500 kcal (30%) 2500 mL 11 02/05/2025 Active Start: 12-01-2022 End: 03-20-2023 Triheptanoin (Dojolvi) 8.3 k vidhya/mL liquid Discontinued kCal/[oz_av] PO December 01, 2022 1:00am March 20, 2023 2:23pm Start: 06-25-2022 End: 06-29-2022 triheptanoin Liqd 18 mL Start: 03-31-2022 End: 04-04-2022 triheptanoin Liqd 18 mL Start: 12-25-2020 End: 09-25-2024 take 20 mL by mouth three times daily triheptanoin (Dojolvi) 8.3 kcal/mL Liqd Take 20 mL by mouth 3 (three) times a day . 12/25/2020 Active Start: 12-25-2020 triheptanoin ( Dojolvi) 8.3 kcal/mL Liqd Take by mouth 4 (four) times a day . 12/25/2020 Active Start: 12-25-2020 End: 03-20-2023 Triheptanoin (Dojolvi) 8.3 k vidhya/mL liquid Discontinued KCAL PO December 01, 2022 1:00am March 20, 2023 2:23pm vancomycin 125 mg oral capsule (1 source) Glycopeptide Antibacterial Start: 06-21-2022 End: 06-22-2022 vancomycin (VANCOCIN) capsule 125 mg vancomycin (VANCOCIN) 2000 mg in sodium chloride 0.9% 500 mL IVPB (1 source) Start: 02-13-2025 End: 02-13-2025 2,000 mg, Intravenous, at 250 mL/hr, Once, On Gege 02/13/25 at 1740, For 1 dose, Indication: Sepsis Problems Active Problems Problem Classification Problem Date Documented Date Episodic/Chronic Abdominal pain (20 sources) Abdominal pain; Translations: [Unspecified abdominal pain] Onset: 07-19-20 Episodic Acute and unspecified renal failure (20 sources) Nyywk-gr-vviudti renal failure; Translations: [Acute kidney failure, unspecified] Onset: 06-26-20 Episodic Administrative/social admission (3 sources) Persons encountering health services in other specified circumstances; Translations: [Other reasons for seeking consultation] 12-01-2022 Episodic Cancer of thyroid (20 sources) Malignant tumor of thyroid gland; Translations: [Malignant neoplasm of thyroid gland] 03-20-2023 Chronic Cancer of thyroid (1 source) Personal history of malignant neoplasm of thyroid; Translations: [Personal history of malignant neoplasm of thyroid] Onset: 05-14-20 Episodic Cardiac dysrhythmias (20 sources) Ventricular tachycardia; Translations: [Recurrent ventricular tachycardia] 06-05-2023 Chronic Cardiac dysrhythmias (20 sources) Palpitations; Translations: [Palpitations] Onset: 09-18-20 24 04-18-2023 Episodic Chronic kidney disease (20 sources) Chronic kidney disease stage 3; Translations: [CKD (chronic kidney disease) stage 3, GFR 30-59 ml/min (HCC)] Onset: 06-17-20 Chronic Chronic kidney disease (2 sources) Chronic kidney disease; Translations: [Chronic kidney disease, stage 3 unspecified] Onset: 06-26-20 Chronic obstructive pulmonary disease and bronchiectasis (20 sources) Chronic obstructive lung disease; Translations: [Chronic obstructive pulmonary disease, unspecified] Onset: 04-05-20 19 04-05-2019 Chronic Comment on above: FEV1 46% of predicte d Complications of surgical procedures or medical care (20 sources) Postoperative hypothyroidism; Translations: [Postprocedural hypothyroidism] Onset: 10-09-20 16 10-09-2016 Chronic Conditions associated with dizziness or vertigo (20 sources) Dizziness; Translations: [Dizziness and giddiness] Episodic Congestive heart failure; nonhypertensive (3 sources) Acute exacerbation of chronic congestive heart failure; Translations: [Heart failure, unspecified] Onset: 02-14-20 25 02-13-2025 Chronic Coronary atherosclerosis and other heart disease (20 sources) Coronary arteriosclerosis; Translations: [Atherosclerotic heart disease of [place] coronary artery without angina pectoris] 04-18-2023 Chronic Deficiency and other anemia (4 sources) Anemia; Translations: [Anemia, unspecified] 06-26-2025 Episodic Deficiency and other anemia (1 source) Anemia, unspecified; Translations: [Anemia, unspecified] Onset: 07-02-20 Episodic Diabetes mellitus without complication (20 sources) Other abnormal glucose; Translations: [Other abnormal glucose] 02-29-2024 Episodic Disorders of lipid metabolism (14 sources) Mixed hyperlipidemia; Translations: [Mixed hyperlipidemia] 12-11-2023 Chronic Essential hypertension (20 sources) Hypertensive disorder; Translations: [Essential (primary) hypertension] Onset: 04-05-20 19 04-05-2019 Chronic Fluid and electrolyte disorders (13 sources) Hyperkalemia; Translations: [Hyperkalemia] Episodic Gastrointestinal hemorrhage (5 sources) Rectal hemorrhage; Translations: [Hemorrhage of anus and rectum] Episodic Genitourinary symptoms and ill-defined conditions (20 sources) Bence-Davila proteinuria; 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] 12-11-2023 Episodic Comment on above: No clonality Immunity disorders (20 sources) Polyclonal gammopathy; 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] 12-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 Chronic Immunizations and screening for infectious disease (3 sources) Encounter for immunization; Translations: [Need for prophylactic vaccination and inoculation against unspecified single disease] 06-05-2023 Episodic Malaise and fatigue (20 sources) Fatigue; Translations: [Other fatigue] 03-08-2023 Episodic Mood disorders (20 sources) Depressive disorder; Translations: [Depression] Onset: 06-17-20 19 06-17-2019 Chronic Noninfectious gastroenteritis (20 sources) Chronic diarrhea; Translations: [Noninfective gastroenteritis and colitis, unspecified] 12-01-2022 Episodic Nonspecific chest pain (20 sources) Chest pain; Translations: [Chest pain, unspecified] Onset: 04-05-20 19 04-05-2019 Episodic Osteoarthritis (20 sources) Localized, primary osteoarthritis of the wrist; Translations: [Degenerative joint disease of hand] Onset: 04-24-20 17 04-24-2017 Chronic Osteoarthritis (9 sources) Osteoarthritis of joint of left hand; Translations: [Osteoarthritis of right knee joint] Onset: 04-24-20 17 04-24-2017 Other aftercare (2 sources) Post-discharge follow-up; Translations: [Encounter for follow-up examination after completed treatment for conditions other than malignant neoplasm] 10-16-2024 Episodic Other circulatory disease (12 sources) History of cardiac arrhythmia; Translations: [Personal history of other diseases of the circulatory system] 04-22-2024 Episodic Other connective tissue disease (2 sources) Disorder of skeletal muscle; Translations: [Myopathy] Onset: 07-19-20 16 07-19-2016 Episodic Other connective tissue disease (5 sources) Adhesive capsulitis of shoulder; Translations: [Adhesive capsulitis of shoulder] Episodic Other connective tissue disease (20 sources) Muscle pain; Translations: [Myalgia, unspecified site] Onset: 11-14-1911-14-2016 Episodic Other connective tissue disease (20 sources) Recurrent falls ; Translations: [Repeated falls] 12-01-2022 Episodic Other connective tissue disease (3 sources) Repeated falls; Translations: [History of fall] 12-01-2022 Episodic Other connective tissue disease (1 source) Trigger thumb of left hand; Translations: [Trigger thumb, left thumb] 10-16-2023 Episodic Other connective tissue disease (14 sources) Rhabdomyolysis; Translations: [Paroxysmal rhabdomyolysis] Onset: 06-25-2006-10-2024 Episodic Other connective tissue disease (12 sources) Spasm; Translations: [Other muscle spasm] 01-09-2025 Episodic Other connective tissue disease (20 sources) Tendinosis of right shoulder; Translations: [Other specified disorders of tendon, right shoulder] 04-03-2025 Episodic Other gastrointestinal disorders (12 sources) Acute constipation; Translations: [Constipation, unspecified] 06-18-2024 Episodic Other injuries and conditions due to external causes (1 source) Systemic inflammatory response syndrome; Translations: [Systemic inflammatory response syndrome (SIRS) of non-infectious origin without acute organ dysfunction] 02-13-2025 Episodic Other injuries and conditions due to external causes (2 sources) Systemic inflammatory response syndrome (SIRS) of non-infectious origin without acute organ dysfunction; Translations: [Systemic inflammatory response syndrome (sirs) of non-infectious origin without acute organ dysfunction] Onset: 02-14-20 Episodic Other liver diseases (20 sources) Steatosis of liver; Translations: [Fatty (change of) liver, not elsewhere classified] 11-22-2022 Chronic Other liver diseases (1 source) Increased creatine kinase level; Translations: [Abnormal levels of other serum enzymes] 02-13-2025 Episodic Other liver diseases (2 sources) Abnormal levels of other serum enzymes; Translations: [Abnormal levels of other serum enzymes] Onset: 02-14-20 Episodic Other lower respiratory disease (20 sources) Hypoxia; Translations: [Hypoxemia] 02-24-2023 Episodic Other lower respiratory disease (3 sources) Hypoxemia; Translations: [Hypoxemia] 04-21-2023 Episodic Other lower respiratory disease (4 sources) Dyspnea; Translations: [Shortness of breath] Onset: 02-14-20 25 02-13-2025 Episodic Other lower respiratory disease (20 sources) Hypoxemia; Translations: [Hypoxemia] 04-04-2025 Episodic Other lower respiratory disease (4 sources) Wheezing; Translations: [Wheezing] 06-17-2025 Episodic Other lower respiratory disease (1 source) Wheezing; Translations: [Wheezing] Onset: 06-17-20 Episodic Other nervous system disorders (20 sources) Polyneuropathy; Translations: [Polyneuropathy, unspecified] 01-13-2022 Chronic Other nervous system disorders (14 sources) Polyneuropathy, unspecified; Translations: [Unspecified hereditary and idiopathic peripheral neuropathy] Onset: 01-23-20 Chronic Other nervous system disorders (7 sources) Cervical myelopathy; Translations: [Disease of spinal cord, unspecified] 01-06-2025 Chronic Other nervous system disorders (1 source) Disease of spinal cord, unspecified; Translations: [Disease of spinal cord, unspecified] Onset: 02-06-20 Chronic Other non-traumatic joint disorders (20 sources) Disorder of shoulder; Translations: [Bursitis/tendonitis, shoulder] Onset: 05-18-20 18 05-18-2018 Episodic Other non-traumatic joint disorders (1 source) Pain in right hip; Translations: [Right hip pain] Episodic Other non-traumatic joint disorders (1 source) Pain in right knee; Translations: [Right knee pain, unspecified chronicity] Other nutritional; endocrine; and metabolic disorders (20 sources) Carnitine palmitoyltransferase II deficiency; 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] Onset: 11-14-19 17 04-05-2019 Chronic Other nutritional; endocrine; and metabolic disorders (1 source) Inborn error of metabolism; Translations: [Metabolic disorder, unspecified] Chronic Other nutritional; endocrine; and metabolic disorders (15 sources) Muscle carnitine palmitoyltransferase deficiency; 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] Onset: 06-26-20 Chronic Other nutritional; endocrine; and metabolic disorders (17 sources) Obesity; Translations: [Obesity, unspecified] 10-17-2023 Chronic Other nutritional; endocrine; and metabolic disorders (3 sources) Obesity, unspecified; Translations: [Obesity, unspecified] 10-17-2023 Chronic Other nutritional; endocrine; and metabolic disorders (4 sources) Morbid (severe) obesity due to excess calories; Translations: [Morbid obesity] 12-11-2023 Chronic Other nutritional; endocrine; and metabolic disorders (12 sources) Body mass index 40+ - severely obese; Translations: [Morbid (severe) obesity due to excess calories] 04-22-2024 Chronic Other nutritional; endocrine; and metabolic disorders (10 sources) Body mass index 30+ - obesity; Translations: [Obesity, unspecified] 10-16-2024 Chronic Other nutritional; endocrine; and metabolic disorders (20 sources) History of nutritional deficiency; Translations: [Personal history of other endocrine, nutritional and metabolic disease] 11-06-2022 Episodic Other screening for suspected conditions (not mental disorders or infectious disease) (12 sources) Abnormal findings on diagnostic imaging of other specified body structures; Translations: [Abnormal chest x-ray] 04-22-2024 Chronic Other upper respiratory disease (1 source) Chronic rhinitis; Translations: [Chronic rhinitis] Chronic Otitis media and related conditions (1 source) Dysfunction of eustachian tube; Translations: [Other specified disorders of Eustachian tube, unspecified ear] Episodic Damari-; endo-; and myocarditis; cardiomyopathy (except that caused by tuberculosis or sexually transmitted disease) (2 sources) Cardiomyopathy; Translations: [Cardiomyopathy, unspecified type (HCC)] Chronic Peripheral and visceral atherosclerosis (20 sources) Intermittent claudication; Translations: [Peripheral vascular disease, unspecified] Chronic Pneumonia (except that caused by tuberculosis or sexually transmitted disease) (3 sources) Pneumonia; Translations: [Pneumonia, unspecified organism] Onset: 02-14-20 25 02-13-2025 Episodic Residual codes; unclassified (20 sources) Sleep apnea; Translations: [Sleep apnea, unspecified] Onset: 04-05-20 19 04-05-2019 Chronic Residual codes; unclassified (20 sources) Obstructive sleep apnea syndrome; Translations: [Obstructive sleep apnea (adult) (pediatric)] 11-22-2022 Chronic Comment on above: STOP-BANG is 6 Residual codes; unclassified (20 sources) Obstructive sleep apnea (adult) (pediatric); Translations: [Obstructive sleep apnea (adult)(pediatric)] Onset: 04-05-20 19 12-01-2022 Chronic Residual codes; unclassified (20 sources) Insomnia; Translations: [Insomnia, unspecified] 01-13-2022 Episodic Residual codes; unclassified (2 sources) Localized edema; Translations: [Edema] 02-29-2024 Episodic Respiratory failure; insufficiency; arrest (adult) (19 sources) Chronic hypoxemic respiratory failure; Translations: [Chronic respiratory failure with hypoxia] Onset: 02-14-2001-15-2024 Chronic Spondylosis; intervertebral disc disorders; other back problems (7 sources) Degeneration of cervical intervertebral disc; Translations: [Other cervical disc degeneration, unspecified cervical region] 01-06-2025 Chronic Spondylosis; intervertebral disc disorders; other back problems (20 sources) Disorder of cervical spine; Translations: [Disorder of joint of spine] Onset: 01-07-20 Episodic Substance-related disorders (20 sources) Cigarette smoker ; Translations: [Nicotine dependence, cigarettes, uncomplicated] Onset: 06-17-2002-24-2023 Chronic Comment on above: 1 pack/day x 20 year s quit in 2012 Quit 2012 Syncope (20 sources) Syncope; Translations: [Syncope and collapse] 04-18-2023 Episodic Thyroid disorders (20 sources) Acquired hypothyroidism; Translations: [Hypothyroidism, unspecified] 11-22-2022 Chronic Unclassified (1 source) Chronic pain of right upper limb; Translations: [Chronic right shoulder pain] Unclassified (14 sources) Left cervical radiculopathy; Translations: [M54.12 - Radiculopathy, cervical region,M54.16 - Radiculopathy, lumbar region] Unclassified (2 sources) Other ventricular tachycardia; Translations: [Other ventricular tachycardia] Onset: 04-07-20 Unclassified (2 sources) Ventricular tachycardia, unspecified; Translations: [Ventricular tachycardia, unspecified] Onset: 09-18-20 Unclassified (1 source) Personal history of colon polyps, unspecified; Translations: [Personal history of colon polyps, unspecified] Onset: 01-08-20 Unclassified (1 source) Low back pain, unspecified; Translations: [Low back pain, unspecified] Onset: 02-28-20 Past or Other Problems Problem Classification Problem Date Documented Da te Episodic/Chronic Anal and rectal conditions (20 sources) Rectal prolapse; Translations: [Rectal prolapse] Onset: 04-26-202 2 Episodic Medical examination/evaluation (2 sources) Encounter for general adult medical examination without abnormal findings; Translations: [Encounter for general adult medical examination without abnormal findings] Onset: 8 Episodic Mood disorders (3 sources) Mood disorders Onset: 5 02-18-2025 Nausea and vomiting (17 sources) Nausea; Translations: [Nausea] Onset: 2 Episodic Other aftercare (20 sources) Surgical follow-up; Translations: [Encounter for follow-up examination after completed treatment for conditions other than malignant neoplasm] Onset: 7 05-12-2017 Episodic Other aftercare (2 sources) Encounter for follow-up examination after completed treatment for conditions other than malignant neoplasm; Translations: [Encounter for follow-up examination after completed treatment for conditions other than malignant neoplasm] Onset: 7 Episodic Other and unspecified benign neoplasm (20 sources) History of polyp of colon; Translations: [Personal history of colonic polyps] Onset: 2 01-07-2022 Episodic Other connective tissue disease (1 source) Bursitis; Translations: [Bursitis, unspecified site] Episodic Other connective tissue disease (1 source) Pain in right lower limb; Translations: [Right leg pain] Episodic Other connective tissue disease (17 sources) Non-traumatic rhabdomyolysis; Translations: [Rhabdomyolysis] Onset: 2 Episodic Other connective tissue disease (17 sources) Muscle weakness; Translations: [Muscle weakness (generalized)] Onset: 7 11-14-2016 Episodic Other connective tissue disease (3 sources) Myalgia, unspecified site; Translations: [Myalgia, unspecified site] Onset: 5 Episodic Other connective tissue disease (1 source) Other specified disorders of tendon, right shoulder; Translations: [Other specified disorders of tendon, right shoulder] Onset: 5 Episodic Other gastrointestinal disorders (18 sources) Diarrhea; Translations: [Diarrhea, unspecified] Onset: 2 Episodic Other gastrointestinal disorders (2 sources) Diarrhea, unspecified; Translations: [Diarrhea, unspecified] Onset: 2 Episodic Other nervous system disorders (1 source) Chronic pain syndrome; Translations: [Chronic pain syndrome] Episodic Other non-traumatic joint disorders (20 sources) Pain in right shoulder; Translations: [Right shoulder pain] Onset: 5 01-21-2025 Episodic Other non-traumatic joint disorders (1 source) Other specified joint disorders, right shoulder; Translations: [Other specified joint disorders, right shoulder] Onset: 5 Episodic Other screening for suspected conditions (not mental disorders or infectious disease) (20 sources) Electrocardiogram abnormal; Translations: [Patient encounter status] Onset: 4 Episodic Residual codes; unclassified (2 sources) H/O: surgery; Translations: [Surgery follow-up] Onset: 7 05-12-2017 Episodic Residual codes; unclassified (6 sources) Insomnia, unspecified; Translations: [Insomnia, unspecified] Onset: 5 Episodic Residual codes; unclassified (2 sources) Pain, unspecified; Translations: [Pain, unspecified] Onset: 8 Episodic Respiratory failure; insufficiency; arrest (adult) (19 sources) Acute hypercapnic respiratory failure; Translations: [Acute respiratory failure with hypercapnia] Onset: 4 09-02-2024 Episodic Skin and subcutaneous tissue infections (3 sources) Cellulitis of left knee; Translations: [Cellulitis of left lower limb] Onset: 4 09-02-2024 Episodic Unclassified (20 sources) Pain; Translations: [Pain, unspecified] Onset: 8 05-18-2018 Episodic Unclassified (2 sources) Other ventricular tachycardia; Translations: [Other ventricular tachycardia] Onset: 5 Unclassified (2 sources) Ventricular tachycardia, unspecified; Translations: [Ventricular tachycardia, unspecified] Onset: 4 Unclassified (1 source) Personal history of colon polyps, unspecified; Translations: [Personal history of colon polyps, unspecified] Onset: 4 Results Test Name Value Interpretation Reference Range Facility Absolute lymphocyte countOrd ered By: Mihaela Simpson on 06-26-2025 Lymphocytes Auto (Unsp spec) [#/Vol] 2.19 10*3/uL 0.83-4.51 [facility] Absolute neutrophil countOrd ered By: Mihaela Simpson on 06-26-2025 Neutrophils (Bld) [#/Vol] 7.4 10*3/uL 2.0-7.7 [facility] Automated lymphocyte count a s percentage of total leukocytesOrdered By: Mihaela Crewsruss on 06-26-2025 Lymphocytes/100 WBC Auto (Unsp spec) 21.1 % 19-41 [facility] Basophil percentageOrdered B y: Mihaela Crewsruss on 06-26-2025 Basophils/100 WBC (Bld) 0.8 % 0-1 [facility] CBC W/Diff, Automatedon 06-07-2024 Absolute Lymph 2.19 X10 3/uL Normal 0.83-4.51 [facility] Comment on above: Performed By: #### L 503.0106, L506.1001, L503.6030, L100.9950, L503.6550, L100.0100 #### [facility] [address] [place], [address] Absolute Neut 7.4 X10 3/uL Normal 2.0-7.7 [facility] Comment on above: Performed By: #### L [id number], L506.1001, L503.6030, L100.9950, L503.6550, L100.0100 #### [facility] [address] [place], [address] Basophils/100 WBC (Bld) 0.8 % Normal 0-1 [facility] Comment on above: Performed By: #### L [id number], L506.1001, L503.6030, L100.9950, L503.6550, L100.0100 #### [facility] [address] [place], [address] Eosinophils/100 WBC (Bld) 1.4 % Normal 0-5 [facility] Comment on above: Performed By: #### L 503.0106, L506.1001, L503.6030, L100.9950, L503.6550, L100.0100 #### [facility] [address] [place], [address] Erythrocyte distribution width (RBC) [Ratio] 13.9 % Normal 11.6-14.6 [facility] Comment on above: Performed By: #### L [id number], L506.1001, L503.6030, L100.9950, L503.6550, L100.0100 #### [facility] [address] [place], [address] Hematocrit (Bld) [Volume fraction] 35.8 % Low 37-47 [facility] Comment on above: Performed By: #### L 503.0106, L506.1001, L503.6030, L100.9950, L503.6550, L100.0100 #### [facility] [address] [place], [address] Hemoglobin (Bld) [Mass/Vol] 11.1 g/dL Low 12.0-15.0 [facility] Comment on above: Performed By: #### L 503.0106, L506.1001, L503.6030, L100.9950, L503.6550, L100.0100 #### [facility] [address] [place], [address] IG% 0.300 Normal 0.0-0.9 [facility] Comment on above: Result Comment: IG% - Immature Granulocytes (promyelocytes, myelocytes and metamyelocytes) > 1% indicates that a LEFT SHIFT is Present. Performed By: #### L 503.0106, L506.1001, L503.6030, L100.9950, L503.6550, L100.0100 #### [facility] [address] [place], [address] Lymphocytes/100 WBC (Bld) 21.1 % Normal 19-41 [facility] Comment on above: Performed By: #### L 503.0106, L506.1001, L503.6030, L100.9950, L503.6550, L100.0100 #### [facility] [address] [place], [address] MCH (RBC) [Entitic mass] 27.0 pg Normal 27.0-32.0 [facility] Comment on above: Performed By: #### L 503.0106, L506.1001, L503.6030, L100.9950, L503.6550, L100.0100 #### [facility] [address] [place], [address] MCHC (RBC) [Mass/Vol] 31.0 g/dL Low 32-36 [facility] Comment on above: Performed By: #### L 503.0106, L506.1001, L503.6030, L100.9950, L503.6550, L100.0100 #### [facility] [address] [place], [address] MCV (RBC) [Entitic vol] 87.1 fL Normal 81-99 [facility] Comment on above: Performed By: #### L 503.0106, L506.1001, L503.6030, L100.9950, L503.6550, L100.0100 #### [facility] [address] [place], [address] Monocytes/100 WBC (Bld) 5.4 % Normal 0-10 [facility] Comment on above: Performed By: #### L 503.0106, L506.1001, L503.6030, L100.9950, L503.6550, L100.0100 #### [facility] [address] [place], [address] Neutrophils/100 WBC (Bld) 71.0 % High 47-70 [facility] Comment on above: Performed By: #### L 503.0106, L506.1001, L503.6030, L100.9950, L503.6550, L100.0100 #### [facility] [address] [place], [address] Nucleated RBC (Bld) [#/Vol] 0 10*3/uL Normal 0-5 [facility] Comment on above: Performed By: #### L 503.0106, L506.1001, L503.6030, L100.9950, L503.6550, L100.0100 #### [facility] [address] [place], [address] Platelet mean volume (Bld) [Entitic vol] 10.2 fL Normal 6.2-12.0 [facility] Comment on above: Performed By: #### L 503.0106, L506.1001, L503.6030, L100.9950, L503.6550, L100.0100 #### [facility] [address] [place], [address] Platelets (Bld) [#/Vol] 332 10*3/uL Normal 150-450 [facility] Comment on above: Performed By: #### L 503.0106, L506.1001, L503.6030, L100.9950, L503.6550, L100.0100 #### [facility] [address] [place], [address] RBC (Bld) [#/Vol] 4.11 10*6/uL Low 4.2-5.4 [facility] Comment on above: Performed By: #### L 503.0106, L506.1001, L503.6030, L100.9950, L503.6550, L100.0100 #### [facility] [address] [place], [address] RDW SD 44.4 fl High 35.1-43.9 [facility] Comment on above: Performed By: #### L 503.0106, L506.1001, L503.6030, L100.9950, L503.6550, L100.0100 #### [facility] [address] [place], [address] WBC (Bld) [#/Vol] 10.4 10*3/uL Normal 4.4-11.0 [facility] Comment on above: Performed By: #### L 503.0106, L506.1001, L503.6030, L100.9950, L503.6550, L100.0100 #### [facility] [address] [place], [address] Eosinophil percentageOrdered By: Mihaela Simpson on 06-26-2025 Eosinophils/100 WBC (Bld) 1.4 % 0-5 [facility] Erythrocyte distribution wid th ratioOrdered By: Mihaela Simpson on 06-26-2025 Erythrocyte distribution width (RBC) [Ratio] 13.9 % 11.6-14.6 [facility] Erythrocyte distribution wid th standard deviationOrdered By: Mihaela Simpson on 06-26-2025 Erythrocyte distribution width (RBC) [Ratio] 44.4 fl High 35.1-43.9 [facility] Ferritinon 06-26-2025 Ferritin [Mass/Vol] 150 ng/mL Normal 22-378 [facility] Comment on above: Performed By: #### L 503.0106, L506.1001, L503.6030, L100.9950, L503.6550, L100.0100 #### [facility] [address] [place], [address] Hematocrit Auto (Bld) [Volum e fraction]Ordered By: Mihaela Simpson on 06-26-2025 Hematocrit (Bld) [Volume fraction] 35.8 % Low 37-47 [facility] Hemoglobin measurementOrdere d By: Mihaela Simpson on 06-26-2025 Hemoglobin (Bld) [Mass/Vol] 11.1 g/dL Low 12.0-15.0 [facility] Immature granulocytes/100 WB C Auto (Bld)Ordered By: Mihaela Simpson on 06-26-2025 Immature granulocytes/100 WBC (Bld) 0.300 % 0.0-0.9 [facility] Comment on above: IG% - Immature Granu locytes (promyelocytes, myelocytes and metamyelocytes) > 1% indicates that a LEFT SHIFT is Present. Internal Medicine Office Vis iton 06-26-2025 Internal Medicine Office Visit [facility] [address] [place] [address] [place] [address] OFFICE VISIT Date of Service: 06/26/25 MR#: [id number] Acct: [id number] Name: RADHA SHAFER Rep #: [id number] : 1960 Provider: YNES riddle Age/Sex: 65/F Location: [facility] [place] Status: Signed Intake Vital Signs 06/17/25 08:29 06/26/25 14:03 Height 5 ft 5 in 5 ft 5 in Weight: 220 lb 216 lb BMI 36.6 35.9 BP 136/65 H 142/68 H Blood Pressure Location Rt brachial Lt brachial Position Sitting Sitting Respiration 18 18 Pulse 75 103 H Pulse Source Monitor Monitor Temp 97.1 F L 98.0 F Temp Source Temporal Pulse Oximetry (%) 97 97 Oxygen Delivery Method nasal canula room air Oxygen Flow Rate (L/min) 4 Intake Visit Reasons: DISCUSS BLOODWORK Chief Complaint: DISCUSS BLOOD WORK Is patient in pain?: Yes (8 lower back uses weed gummy for this ) Allergies Penicillins Allergy (Unknown, Verified 06/26/25 14:04) Unknown fremanezumab-vfrm (From Ajovy Syringe) Adverse Reaction (Severe, Verified 06/26/25 14:04) Diarrhea vancomycin Adverse Reaction (Verified 06/26/25 14:04) Rash Medications ???Medication ???Instructions ???Recorded ???Confirmed ???Type Disability Placard #1 ea 02/07/23 06/26/25 Rx aspirin 81 mg tablet,delayed 81 mg PO DAILY heart health 06/26/25 History release (Adult Low Dose Aspirin) cholecalciferol (vitamin D3) 50 50 mcg PO DAILY vitamin 04/18/23 0 06/26/25 History mcg (2,000 unit) capsule ferrous sulfate 325 mg (65 mg 325 mg PO DAILY 04/18/23 06/26/25 History iron) tablet levocarnitine 330 mg tablet 330 mg PO TID vitamin 04/18/23 History compr.stocking,thigh,sh ort,lrg #24 ea 02/29/24 06/26/25 Rx lovastatin 10 mg tablet 10 mg PO QPM cholesterol #90 tabs 10/17/24 06/26/25 Rx vitamin E (dl, acetate) 45 mg (100 45 mg PO QDAY 01/06/25 06/26/25 History unit) capsule metoprolol tartrate 100 mg tablet 100 mg PO BID blood pressure #180 02/18/25 06/26/25 Rx tabs albuterol sulfate 90 mcg/actuation 2 puff inhalation Q6H PRN 06/26/25 History aerosol inhaler fluticasone fur. 200 mcg-umeclid 1 inh inhalation DAILY breathing 0 04/04/25 06/26/25 Rx 62.5 mcg-vilant 25 mcg #3 ea inhalat.powder (Trelegy Ellipta) ipratropium 0.5 mg-albuterol 3 mg 3 ml inhalation Q4-6H PRN 5 06/26/25 Rx (2.5 mg base)/3 mL nebulization shortness of breath or wheezing soln #180 mL doxepin 100 mg capsule 100 mg PO QHS #30 caps 04/08/25 Rx tizanidine 4 mg tablet See Rx Instructions .Route 5 06/26/25 Rx .COMPLEX spasms #150 tabs lisinopril 20 mg tablet 10 mg PO QDAY 04/16/25 06/26/25 Hi story duloxetine 60 mg capsule,delayed 60 mg PO DAILY mental health #90 0 04/17/25 06/26/25 Rx release caps nifedipine 30 mg tablet,extended 30 mg PO DAILY blood pressure #90 04/17/25 06/26/25 Rx release tabs omeprazole 40 mg capsule,delayed 40 mg PO DAILY for acid reflux #90 04/17/25 06/26/25 Rx release caps levothyroxine 175 mcg tablet 175 mcg PO DAILY thyroid #90 tabs 05/16/25 06/26/25 Rx albuterol sulfate 2.5 mg/3 mL mg inhalation Q6 PRN wheezing 06/0606/26/25 History (0.083 %) solution for nebulization roflumilast 250 mcg tablet 250 mcg PO QDAY 4 weeks #28 tabs 0 06/17/25 06/26/25 Rx (Daliresp) Have you fallen in the past year?: Yes (x2) PFSH Medical History Arthrosis of right acromioclavicular joint Tendinosis of right rotator cuff Impingement of right shoulder Right shoulder pain Myalgia Neck pain Low back pain Anxiety Depression Osteoporosis Smoker On home oxygen therapy COPD (chronic obstructive pulmonary disease) Hypertension Hx of ventricular tachycardia COPD (chronic obstructive pulmonary disease) Chronic hypoxemic respiratory failure Polyclonal gammopathy Bence Davlia protein present in urine Obesity Nonsustained ventricular tachycardia Coronary artery disease Syncope Palpitations Thyroid cancer Syncope and collapse Essential hypertension Fatigue Cervical radiculopathy Smoking greater than 30 pack years Hypoxia Chronic diarrhea Recurrent falls Fatty liver FELISA (obstructive sleep apnea) CKD (chronic kidney disease) stage 4, GFR 15-29 ml/min Acquired hypothyroidism History of vitamin D deficiency Peripheral arterial disease Vertigo Polyneuropathy Insomnia Carnitine palmitoyltransferase II deficiency Vision problems Thyroid cancer GERD (gastroesophageal reflux disease) Osteoarthritis Hypothyroid Neuropathy Kidney disease Hypertension History of emotional problems Chronic bronchitis Surgical History History of cholecystectomy Cataract ext (more content not included)... Normal [facility] Iron measurement (mass/mass) Ordered By: Mihaela Simpson on 06-26-2025 Iron (Unsp spec) [Mass/Mass] 40 ug/dL Low 50-170 [facility] Iron+Iron Binding Capacityon 06-26-2025 Iron [Mass/Vol] 40 ug/dL Low 50-170 [facility] Comment on above: Performed By: #### L 503.0106, L506.1001, L503.6030, L100.9950, L503.6550, L100.0100 #### [facility] [place], [address] IRON SATURATION 16.0 Normal 13-59 [facility] Comment on above: Performed By: #### L 503.0106, L506.1001, L503.6030, L100.9950, L503.6550, L100.0100 #### [facility] [address] [place], [address] TIBC 256 ug/dL Normal 250-450 [facility] Comment on above: Performed By: #### L 503.0106, L506.1001, L503.6030, L100.9950, L503.6550, L100.0100 #### [facility] [address] [place], [address] UIBC 216 ug/dL Low 228-428 [facility] Comment on above: Performed By: #### L 503.0106, L506.1001, L503.6030, L100.9950, L503.6550, L100.0100 #### [facility] [address] [place], [address] MCV (mean corpuscular volume ) determinationOrdered By: Mihaela Simpson on 06-26-2025 MCV (RBC) [Entitic vol] 87.1 fL 81-99 [facility] Mean corpuscular hemoglobin (MCH) determinationOrdered By: Mihaela Simpson on 06-26-2025 MCH (RBC) [Entitic mass] 27.0 pg 27.0-32.0 [facility] Mean corpuscular hemoglobin concentration (MCHC) determinationOrdered By: Mihaela Simpson on 06-26-2025 MCHC (RBC) [Mass/Vol] 31.0 g/dL Low 32-36 [facility] Mean platelet volume determi nationOrdered By: Mihaela Simpson on 06-26-2025 Platelet mean volume (Bld) [Entitic vol] 10.2 fL 6.2-12.0 [facility] Monocyte percentageOrdered B y: Mihaela Simpson on 06-26-2025 Monocytes/100 WBC (Bld) 5.4 % 0-10 [facility] Neutrophil percentageOrdered By: Mihaela Simpson on 06-26-2025 Neutrophils/100 WBC (Bld) 71.0 % High 47-70 [facility] No Panel InformationOrdered By: Mihaela Simpson on 06-26-2025 Unsaturated Iron Binding Capacity 216 ug/dL Low 228-428 [facility] Nucleated red blood cell per centageOrdered By: Mihaela Simpson on 06-26-2025 Nucleated RBC/100 WBC (Bld) [Ratio] 0 % 0-5 [facility] Platelet countOrdered By: Clifton Simpson on 06-26-2025 Platelets (Bld) [#/Vol] 332 10*3/uL 150-450 [facility] RBC Auto (Bld) [#/Vol]Ordere d By: Mihaela Simpson on 06-26-2025 RBC (Bld) [#/Vol] 4.11 10*6/uL Low 4.2-5.4 [facility] Retic Panelon 06-26-2025 IM RET FRACTION 7.70 Normal 3.00-15.90 [facility] Comment on above: Performed By: #### L 503.0106, L506.1001, L503.6030, L100.9950, L503.6550, L100.0100 #### [facility] [address] [place], [place], [id number] RET-HE 27.3 pg Low 30-35 [facility] Comment on above: Performed By: #### L 503.0106, L506.1001, L503.6030, L100.9950, L503.6550, L100.0100 #### [facility] [address] [place], [place], [id number] (633) Retic Count 2.20 High 0.5-1.5 [facility] Comment on above: Performed By: #### L 503.0106, L506.1001, L503.6030, L100.9950, L503.6550, L100.0100 #### [facility] [address] [place], [place], [address] Reticulocyte hemoglobin equi valent (RET-He) measurementOrdered By: Mihaela Simpson on 06-26-2025 Hemoglobin (Reticulocytes) [Entitic mass] 27.3 pg Low 30-35 [facility] Reticulocytes Auto (Bld) [#/ Vol]Ordered By: Mihaela Simpson on 06-26-2025 Reticulocytes/100 RBC (Bld) 2.20 % High 0.5-1.5 [facility] Serum or plasma ferritin josé miguel surement (mass/volume)Ordered By: Mihaela Simpson on 06-26-2025 Ferritin [Mass/Vol] 150 ng/mL 22-378 [facility] Serum or plasma iron saturat ion measurement (mass fraction)Ordered By: Mihaela Simpson on 06-26-2025 Iron saturation [Mass fraction] 16.0 % 13-59 [facility] Vitamin B12on 06-26-2025 Cobalamin (Vitamin B12) [Mass/Vol] 472 pg/mL Normal 180-914 [facility] Comment on above: Performed By: #### L 503.0106, L506.1001, L503.6030, L100.9950, L503.6550, L100.0100 #### [facility] [address] [place], [place], [id number] Vitamin B12 ser/plasOrdered By: Mihaela Simpson on 06-26-2025 Cobalamin (Vitamin B12) [Mass/Vol] 472 pg/mL 180-914 [facility] Vitamin D,25 Hydroxyon 06-26 Vitamin D 25-OH 69.4 ng/mL Normal 30-100 [facility] Comment on above: Result Comment: Shania min D Status Deficiency: <20 ng/mL (50nmol/L) Insufficiency: 20-30 ng/mL (50-75 nmol/L) Sufficiency: 30-100 ng/mL (75-250 nmol/L) Toxicity: >100 ng/mL (>250 nmol/L) Performed By: #### L 503.0106, L506.1001, L503.6030, L100.9950, L503.6550, L100.0100 #### [facility] [address] [place], [address] White blood cell (WBC) count Ordered By: Mihaela Simpson on 06-26-2025 WBC (Bld) [#/Vol] 10.4 10*3/uL 4.4-11.0 [facility] Pulmonary Visit Reporton Pulmonary Visit Report [facility] [address] [place] [address] OFFICE VISIT Date of Service: 06/17/25 MR#: [id number] Acct: [id number] Name: RADHA SHAFER Rep #: [id number] : 1960 Provider: Colette Black NP Age/Sex: 65/F Location: [facility] [place] Status: Signed Assessment and Plan Assessment and Plan (1) Stage 3 severe COPD by GOLD classification: Status: Acute Plan: She remains symptomatic despite using triple therapy. She is not exacerbating requiring additional oral prednisone or antibiotics at this time. I have recommended that she continue with use of triple therapy but have asked for her to obtain a repeat PFT. She may have a COPD asthma overlap syndrome present. Her NIOX is not elevated today. Obtain Daliresp and utilize the 250 mcg dosing initially until follow-up. The use and potential side effects of this medication were reviewed at length with patient today. On follow-up if the patient is tolerating this medication at this dose and I will consider increasing to the 500 mcg dosing. Use albuterol solution nebulized on an as- needed basis. Of note a CBC from 06/17/24 showed a 278 total eosinophilic count. On follow-up I will consider the use of Nucala as add-on therapy for COPD. (2) FELISA (obstructive sleep apnea): Status: Chronic Comment: STOP-BANG is 6 Plan: Her baseline sleep study is over 20 years old. There is presence of daytime hypersomnia. She has features of sleep disordered breathing she carries a diagnosis of obstructive sleep apnea. I have recommended repeating baseline sleep testing at this time. If there continues to be presence of obstructive sleep apnea then I will recommend a titration study and therapy for treatment. She is willing to consider treatment for sleep apnea in light of the recent development of atrial fibrillation. I have discussed the correlation between these disease processes and other comorbid conditions related to untreated sleep apnea. (3) Hypoxemia: Status: Chronic Plan: Continue with use of supplemental oxygen to maintain a saturation of 89 to 92%. She is using and benefiting from supplemental oxygen. (4) Smoking greater than 20 pack years: Status: Acute Comment: Quit 2012 Plan: Repeat low-dose screening lung CT in April 2026, this has been ordered accordingly. Continue with complete smoking cessation. Orders: Orders Polysomnography Today G47.33 - Obstructive sleep apnea (adult) (pediatric) PFT Complete - DLCO, Spirometry b/a bronchodilators, lung volumes 06/24/25 J44.9 - Chronic obstructive pulmonary disease, unspecified NIOX Today J44.9 - Chronic obstructive pulmonary disease, unspecified, R06.2 - Wheezing Low Dose CT Lung Screening 04/06/26 F17.210 - Nicotine dependence, cigarettes, uncomplicated Plan Details Follow Up: 3 Months (LMR) HPI HPI Comments Details: The patient is a 65-year-old female who presents to the clinic today for a routine scheduled follow- up office visit. She is ambulatory and currently on room air. She has not had recent hospitalization, urgent care visit or ER visit for her breathing since last follow-up. She has not required the use of oral prednisone or antibiotics for respiratory symptoms. The patient has a 86-[id number]-[id number] smoking history, having quit completely in 2012. She is currently retired/disabled. 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 The patient utilizes supplemental oxygen at 4 L/min at all times. Today she reports shortness of breath and cough are present along with wheeze. She denies chest pain and chest tightness. Low-dose CT scan completed in June 2023 demonstrated several small subcentimeter calcified nodules in the right upper lobe. She has remained compliant with the use of Trelegy Ellipta 200 mcg and reports infrequent use of her rescue inhaler. The patient reports that the DuoNeb solution causes her to have diarrhea so she stopped using it. The patient stated that she has already completed pulmonary rehab in the past. She has not had any recent pulmonary function studies completed. She is not treating her sleep apnea. She is not able to adjust to mask but this was 20 or 30 years ago. She is stays a 4 L/min of supplemental oxygen throughout the day and night. She has new onset of aFib and now is on a beta saira. She is tired all day. 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 She ends up in rhabdomyolysis when she gets a CPT2 attack. Documentation reviewed with patient today includes: LDCT from April 17, 2025 shows mild scarring in the left upper lobe as well as posterior aspect of the lingular segment of the left upper lobe. Stable calcified granulomas in the lateral aspect of the right upper lobe identified. STOP-BANG Assessment: 1. Do you snore? [Y] 2. Are you frequently tired during th (more content not included)... Normal [facility] Thyroidon 05-07-2025 Thyroid [facility] [address] [place] [address] Thyroid MR#: [id number] Acct: [id number] Name: RADHA SHAFER Rep #: [id number] : 1960 F 65 From: Vaibhav Guevara MD PCP: Dr. Jennifer Gordon MD Status: REG CLI Study: Thyroid Date of Exam: 05/07/25 Exam# [id number] Ordering Dr: Jennifer Gordon MD PROCEDURE: THYROID, 05/07/2025 REASON FOR EXAM: THYROID CANCER FOLLOW UP TECHNIQUE: Grayscale and color Doppler imaging of the thyroidectomy bed was performed. COMPARISON: None FINDINGS: Total thyroidectomy. No definite residual thyroid tissue or other abnormality of the thyroidectomy bed is identified. US/Thyroid IMPRESSION: Total thyroidectomy without definite residual thyroid tissue or other abnormality of the thyroidectomy bed. Reading Location: [id number] CC: Dr. Jennifer Gordon MD Search Engine Optimization Manager: Signed Normal [facility] ECG 12-LEADon 04-30-2025 ECG 12-LEAD Sinus Rhythm -Right atrial enlargement. BORDERLINE Normal [facility] No Panel Informationon 04-30 Sinus Rhythm -Right atrial enlargement. BORDERLINE [facility] Low Dose CT Lung Screeningon 04-17-[address] Lung Screening [facility] [address], [place] [id number] Low Dose CT Lung Screening MR#: [id number] Acct: [id number] Name: RADHA SHAFER Rep #: [id number] : 1960 F 65 From: Clarence gama MD PCP: Dr. Jennifer Gordon MD Status: REG CLI Study: Low Dose CT Lung Screening Date of Exam: 04/17 Exam# [id number] Ordering Dr: Sasha Heredia NP RE[employer] CENTRE MANAGER-C PROCEDURE: LOW DOSE CT LUNG SCREENING 04/17/2025 REASON FOR EXAM: FORMER SMOKER TECHNIQUE: Low Dose CT Lung screening without contrast. Coronal and Sagittal reconstruction series were provided. One or more dose reduction techniques were used (e.g., Automated exposure control, adjustment of the mA and/or kV according to patient size, use of iterative reconstruction technique). REFERENCE LINK: [employer] Lung-RADS RADIATION DOSE SUMMARY: CTDlvol: 16.28 mGy DLP: 562.62 mGycm COMPARISON: Prior study dated July 03, 2023. FINDINGS: PULMONARY NODULES: (Only nodules >3mm are reported) Nodules described below are on series 1 unless otherwise specified. Pulmonary Nodules: Stable calcified granulomas in the lateral aspect of the right upper lobe. Hardware:None Lymph Nodes:Small mediastinal lymph nodes. Heart and Vasculature:Coronary artery calcifications are noted. Coronary Artery Calcifications: Present Lungs and Airways: Mild scarring in the left upper lobe as well as the posterior aspect of the lingular segment of the left upper lobe. Pleura:No pleural effusion. Upper Abdomen:Unremarkable Bones:Degenerative changes of the thoracic spine. CT/Low Dose CT Lung Screening IMPRESSION: Stable examination. Coronary artery calcification (CAC) is is present Lung-RADS Category: 2 BENIGN (BASED ON IMAGING FEATURES OR INDOLENT BEHAVIOR). RECOMMEND 12-MONTH SCREENING LDCT. Other Significant Findings: None. Reading Location: [id number] CC: RE[employer] MANAGER-C Sasha Heredia; Dr. Jennifer Gordon MD Search Engine Optimization Manager: Signed Normal [facility] Absolute lymphocyte countOrd ered By: Jennifer Gordon on 2025 Lymphocytes Auto (Unsp spec) [#/Vol] 1.98 10*3/uL 0.83-4.51 [facility] Absolute neutrophil countOrd ered By: Jennifer Gordon on 2025 Neutrophils (Bld) [#/Vol] 7.8 10*3/uL High 2.0-7.7 [facility] Anion gap in Serum or Plasma Ordered By: Jennifer Gordon on 2025 Anion gap [Moles/Vol] 10 mmol/L 5-15 [facility] Automated lymphocyte count a s percentage of total leukocytesOrdered By: Jennifer Gordon on 2025 Lymphocytes/100 WBC Auto (Unsp spec) 18.1 % Low 19-41 [facility] BUN/creatinine ratioOrdered By: Jennifer Gordon on 2025 Urea nitrogen/Creatinine [Mass ratio] 13.9 mg/mg 10-20 [facility] Basophil percentageOrdered B y: Jennifer Gordon on 2025 Basophils/100 WBC (Bld) 1.0 % 0-1 [facility] Bilirubin Test strip Ql (U)O rdered By: Jennifer Gordon on 2025 Bilirubin Ql (U) Negative Negative [facility] Bilirubin, totalOrdered By: Jennifer Gordon on 2025 Bilirubin [Mass/Vol] 0.17 mg/dL 0.00-1.30 [facility] CBC W/Diff, Automatedon 04-06 Absolute Lymph 1.98 X10 3/uL Normal 0.83-4.51 [facility] Comment on above: Performed By: #### L 503.0106, L506.1001, L503.6030, L100.9950, L503.6550, L100.0100 #### [facility] [address] [place], [place], [id number] Absolute Neut 7.8 X10 3/uL High 2.0-7.7 [facility] Comment on above: Performed By: #### L 503.0106, L506.1001, L503.6030, L100.9950, L503.6550, L100.0100 #### [facility] [address] [place], [address] Basophils/100 WBC (Bld) 1.0 % Normal 0-1 [facility] Comment on above: Performed By: #### L 503.0106, L506.1001, L503.6030, L100.9950, L503.6550, L100.0100 #### [facility] [address] [place], [address] Eosinophils/100 WBC (Bld) 2.2 % Normal 0-5 [facility] Comment on above: Performed By: #### L 503.0106, L506.1001, L503.6030, L100.9950, L503.6550, L100.0100 #### [facility] [address] [place], [address] Erythrocyte distribution width (RBC) [Ratio] 15.2 % High 11.6-14.6 [facility] Comment on above: Performed By: #### L 503.0106, L506.1001, L503.6030, L100.9950, L503.6550, L100.0100 #### [facility] [address] [place], [address] Hematocrit (Bld) [Volume fraction] 34.9 % Low 37-47 [facility] Comment on above: Performed By: #### L 503.0106, L506.1001, L503.6030, L100.9950, L503.6550, L100.0100 #### [facility] [address] [place], [address] Hemoglobin (Bld) [Mass/Vol] 10.5 g/dL Low 12.0-15.0 [facility] Comment on above: Performed By: #### L 503.0106, L506.1001, L503.6030, L100.9950, L503.6550, L100.0100 #### [facility] [address] [place], [address] IG% 0.500 Normal 0.0-0.9 [facility] Comment on above: Result Comment: IG% - Immature Granulocytes (promyelocytes, myelocytes and metamyelocytes) > 1% indicates that a LEFT SHIFT is Present. Performed By: #### L 503.0106, L506.1001, L503.6030, L100.9950, L503.6550, L100.0100 #### [facility] [address] [place], [address] Lymphocytes/100 WBC (Bld) 18.1 % Low 19-41 [facility] Comment on above: Performed By: #### L 503.0106, L506.1001, L503.6030, L100.9950, L503.6550, L100.0100 #### [facility] [address] [place], [address] MCH (RBC) [Entitic mass] 25.9 pg Low 27.0-32.0 [facility] Comment on above: Performed By: #### L 503.0106, L506.1001, L503.6030, L100.9950, L503.6550, L100.0100 #### [facility] [address] [place], [address] MCHC (RBC) [Mass/Vol] 30.1 g/dL Low 32-36 [facility] Comment on above: Performed By: #### L 503.0106, L506.1001, L503.6030, L100.9950, L503.6550, L100.0100 #### [facility] [address] [place], [address] MCV (RBC) [Entitic vol] 86.2 fL Normal 81-99 [facility] Comment on above: Performed By: #### L 503.0106, L506.1001, L503.6030, L100.9950, L503.6550, L100.0100 #### [facility] [address] [place], [address] Monocytes/100 WBC (Bld) 7.0 % Normal 0-10 [facility] Comment on above: Performed By: #### L 503.0106, L506.1001, L503.6030, L100.9950, L503.6550, L100.0100 #### [facility] [address] [place], [address] Neutrophils/100 WBC (Bld) 71.2 % High 47-70 [facility] Comment on above: Performed By: #### L 503.0106, L506.1001, L503.6030, L100.9950, L503.6550, L100.0100 #### [facility] [address] [place], [address] Nucleated RBC (Bld) [#/Vol] 0 10*3/uL Normal 0-5 [facility] Comment on above: Performed By: #### L 503.0106, L506.1001, L503.6030, L100.9950, L503.6550, L100.0100 #### [facility] [address] [place], [address] Platelet mean volume (Bld) [Entitic vol] 10.5 fL Normal 6.2-12.0 [facility] Comment on above: Performed By: #### L 503.0106, L506.1001, L503.6030, L100.9950, L503.6550, L100.0100 #### [facility] [address] [place], [address] Platelets (Bld) [#/Vol] 347 10*3/uL Normal 150-450 [facility] Comment on above: Performed By: #### L 503.0106, L506.1001, L503.6030, L100.9950, L503.6550, L100.0100 #### [facility] [address] [place], [address] RBC (Bld) [#/Vol] 4.05 10*6/uL Low 4.2-5.4 [facility] Comment on above: Performed By: #### L 503.0106, L506.1001, L503.6030, L100.9950, L503.6550, L100.0100 #### [facility] [address] [place], [address] RDW SD 47.7 fl High 35.1-43.9 [facility] Comment on above: Performed By: #### L 503.0106, L506.1001, L503.6030, L100.9950, L503.6550, L100.0100 #### [facility] [address] [place], [address] WBC (Bld) [#/Vol] 10.9 10*3/uL Normal 4.4-11.0 [facility] Comment on above: Performed By: #### L 503.0106, L506.1001, L503.6030, L100.9950, L503.6550, L100.0100 #### [facility] [address] [place], [address] Calculated very low density lipoprotein (VLDL) cholesterol measurementOrdered By: Jennifer Gordon on 2025 Calculated very low density lipoprotein (VLDL) cholesterol measurement 32 mg/dL 5-40 [facility] Carbon dioxide, total [Moles /volume] in Central venous bloodOrdered By: Jennifer Gordon on 2025 CO2 [Moles/Vol] 29.0 mmol/L 21.0-32.0 [facility] Chloride assayOrdered By: Felipe Gordon on 2025 Chloride [Moles/Vol] 97 mmol/L Low 98-108 [facility] Comprehensive Metabolic Prof ilon 2025 Albumin [Mass/Vol] 4.2 g/dL Normal 3.4-4.8 [facility] Comment on above: Performed By: #### L 503.0106, L506.1001, L503.6030, L100.9950, L503.6550, L100.0100 #### [facility] [address] [place], [address] Albumin/Globulin [Mass ratio] 1.3 {ratio} Normal 0.9-2.4 [facility] Comment on above: Performed By: #### L 503.0106, L506.1001, L503.6030, L100.9950, L503.6550, L100.0100 #### [facility] [address] [place], [address] ALK PHOS 80 U/L Normal 35-104 [facility] Comment on above: Performed By: #### L 503.0106, L506.1001, L503.6030, L100.9950, L503.6550, L100.0100 #### [facility] [address] [place], [address] ALT [Catalytic activity/Vol] 27 U/L Normal <=34 [facility] Comment on above: Performed By: #### L 503.0106, L506.1001, L503.6030, L100.9950, L503.6550, L100.0100 #### [facility] [address] [place], [address] AST [Catalytic activity/Vol] 27 U/L Normal <=31 [facility] Comment on above: Performed By: #### L 503.0106, L506.1001, L503.6030, L100.9950, L503.6550, L100.0100 #### [facility] [address] [place], [address] Bilirubin [Mass/Vol] 0.17 mg/dL Normal 0.00-1.30 [facility] Comment on above: Performed By: #### L 503.0106, L506.1001, L503.6030, L100.9950, L503.6550, L100.0100 #### [facility] [address] [place], [address] BUN/CRE 13.9 RATIO Normal 10-20 [facility] Comment on above: Performed By: #### L 503.0106, L506.1001, L503.6030, L100.9950, L503.6550, L100.0100 #### [facility] [address] [place], [address] Calcium [Mass/Vol] 9.5 mg/dL Normal 7.6-11.0 [facility] Comment on above: Performed By: #### L 503.0106, L506.1001, L503.6030, L100.9950, L503.6550, L100.0100 #### [facility] [address] [place], [address] Chloride [Moles/Vol] 97 mmol/L Low 98-108 [facility] Comment on above: Performed By: #### L 503.0106, L506.1001, L503.6030, L100.9950, L503.6550, L100.0100 #### [facility] [address] [place], [address] CO2 [Moles/Vol] 29.0 mmol/L Normal 21.0-32.0 [facility] Comment on above: Performed By: #### L 503.0106, L506.1001, L503.6030, L100.9950, L503.6550, L100.0100 #### [facility] [address] [place], [address] Creatinine [Mass/Vol] 1.47 mg/dL High 0.70-1.20 [facility] Comment on above: Performed By: #### L 503.0106, L506.1001, L503.6030, L100.9950, L503.6550, L100.0100 #### [facility] [address] [place], [address] GAP 10 Normal 5-15 [facility] Comment on above: Performed By: #### L 503.0106, L506.1001, L503.6030, L100.9950, L503.6550, L100.0100 #### [facility] [address] [place], [address] GFR/1.73 sq M.predicted among non-blacks MDRD (S/P/Bld) [Vol rate/Area] 39 mL/min/{1.73_m2} Low >60 [facility] Comment on above: Result Comment: mL/m in/1.73m2 CKD-EPI Creatinine Equation (2020) Performed By: #### L 503.0106, L506.1001, L503.6030, L100.9950, L503.6550, L100.0100 #### [facility] [address] [place], [address] Globulin (S) [Mass/Vol] 3.3 g/dL Normal 2.2-4.2 [facility] Comment on above: Performed By: #### L 503.0106, L506.1001, L503.6030, L100.9950, L503.6550, L100.0100 #### [facility] [address] [place], [address] Glucose [Mass/Vol] 98 mg/dL Normal 70-99 [facility] Comment on above: Performed By: #### L 503.0106, L506.1001, L503.6030, L100.9950, L503.6550, L100.0100 #### [facility] [address] [place], [address] Potassium [Moles/Vol] 5.6 mmol/L High 3.3-5.1 [facility] Comment on above: Performed By: #### L 503.0106, L506.1001, L503.6030, L100.9950, L503.6550, L100.0100 #### [facility] [address] [place], [address] Sodium [Moles/Vol] 135 mmol/L Normal 133-145 [facility] Comment on above: Performed By: #### L 503.0106, L506.1001, L503.6030, L100.9950, L503.6550, L100.0100 #### [facility] [address] [place], [address] T PROT 7.5 g/dL Normal 5.9-8.4 [facility] Comment on above: Performed By: #### L 503.0106, L506.1001, L503.6030, L100.9950, L503.6550, L100.0100 #### [facility] [address] [place], [address] Urea nitrogen [Mass/Vol] 20 mg/dL High 4-19 [facility] Comment on above: Performed By: #### L 503.0106, L506.1001, L503.6030, L100.9950, L503.6550, L100.0100 #### [facility] [address] [place], [address] Eosinophil percentageOrdered By: Jennifer Gordon on 2025 Eosinophils/100 WBC (Bld) 2.2 % 0-5 [facility] Erythrocyte distribution wid th ratioOrdered By: Jennifer Gordon on 2025 Erythrocyte distribution width (RBC) [Ratio] 15.2 % High 11.6-14.6 [facility] Erythrocyte distribution wid th standard deviationOrdered By: Jennifer Gordon on 2025 Erythrocyte distribution width (RBC) [Ratio] 47.7 fl High 35.1-43.9 [facility] Glomerular filtration rate ( GFR) estimation/1.73 sq m using serum, plasma, or whole bOrdered By: Jennifer Gordon on 2025 GFR/1.73 sq M.predicted among non-blacks MDRD (S/P/Bld) [Vol rate/Area] 39 mL/min/{1.73_m2} Low >60 [facility] Comment on above: mL/min/1.73m2 CKD-EP I Creatinine Equation (2020) Hematocrit Auto (Bld) [Volum e fraction]Ordered By: Jennifer Gordon on 2025 Hematocrit (Bld) [Volume fraction] 34.9 % Low 37-47 [facility] Hemoglobin A1con 2025 HbA1c (Bld) [Mass fraction] 5.7 % Normal <=5.6 [facility] Comment on above: Result Comment: Norm al < 5.7 % Prediabetic 5.7 - 6.4 % Diabetic >or= 6.5 % Please note range changes. Performed By: #### L 503.0106, L506.1001, L503.6030, L100.9950, L503.6550, L100.0100 #### [facility] [address] [place], [address] Hemoglobin A1c percentageOrd ered By: Jennifer Gordon on 2025 HbA1c (Bld) [Mass fraction] 5.7 % <5.7 [facility] Comment on above: Normal < 5.7 % Predi abetic 5.7 - 6.4 % Diabetic >or= 6.5 % Please note range changes. Hemoglobin measurementOrdere d By: Jennifer Gordon on 2025 Hemoglobin (Bld) [Mass/Vol] 10.5 g/dL Low 12.0-15.0 [facility] Immature granulocytes/100 WB C Auto (Bld)Ordered By: Jennifer Gordon on 2025 Immature granulocytes/100 WBC (Bld) 0.500 % 0.0-0.9 [facility] Comment on above: IG% - Immature Granu locytes (promyelocytes, myelocytes and metamyelocytes) > 1% indicates that a LEFT SHIFT is Present. Ketones Test strip Ql (U)Ord ered By: Jennifer Gordon on 2025 Ketones Ql (U) Negative Negative [facility] LDL calc ser/plasOrdered By: Jennifer Gordon on 2025 Cholesterol in LDL [Mass/Vol] 137 mg/dL [facility] Comment on above: Ykvxydkrbk=189-160 m g/dL & Higher Asyi=761 mg/dL or greater Laboratory - Chemistry and C hemistry - challengeOrdered By: Jennifer Gordon on 2025 AST [Catalytic activity/Vol] 27 U/L <32 [facility] Lipid Profileon 2025 CHOL:HDL 4.76 Normal [facility] Comment on above: Performed By: #### L 503.0106, L506.1001, L503.6030, L100.9950, L503.6550, L100.0100 #### [facility] [address] [place], [address] Cholesterol [Mass/Vol] 214 mg/dL High <=200 [facility] Comment on above: Result Comment: Chol esterol level, Desirable <200 mg/dL Borderline high cholesterol 200-239 mg/dL High cholesterol >=240 mg/dL Recommendations of the NCEP Adult Treatment Panel for the following risk-cutoff thresholds for the [place] population. Performed By: #### L 503.0106, L506.1001, L503.6030, L100.9950, L503.6550, L100.0100 #### [facility] [address] [place], [address] Cholesterol in HDL [Mass/Vol] 45 mg/dL Normal [facility] Comment on above: Result Comment: [place] onal Cholesterol Education Program (NCEP) guidelines: <40 mg/dL: Low HDL-cholesterol (major risk factor for CHD) >= 60 mg/dL: High HDL-cholesterol (negative risk factor for CHD) HDL-cholesterol is affected by a number of factors, e.g. smoking, exercise, hormones, sex and age. Performed By: #### L 503.0106, L506.1001, L503.6030, L100.9950, L503.6550, L100.0100 #### [facility] [address] [place], [place], [id number] Cholesterol in LDL [Mass/Vol] 137 mg/dL Normal [facility] Comment on above: Result Comment: Bord kbadbv=681-090 mg/dL Higher Pugv=440 mg/dL or greater Performed By: #### L 503.0106, L506.1001, L503.6030, L100.9950, L503.6550, L100.0100 #### [facility] [address] [place], [address] Cholesterol in VLDL [Mass/Vol] 32 mg/dL Normal 5-40 [facility] Comment on above: Performed By: #### L 503.0106, L506.1001, L503.6030, L100.9950, L503.6550, L100.0100 #### [facility] [address] [place], [address] Triglyceride [Mass/Vol] 160 mg/dL Normal [facility] Comment on above: Result Comment: The drugs N-Acetylcysteine and Metamizole may falsely depress this assay. Normal range: <150 mg/dL Borderline High: 150-199 mg/dL High: 200-499 mg/dL Very High: >500 mg/dL Performed By: #### L 503.0106, L506.1001, L503.6030, L100.9950, L503.6550, L100.0100 #### [facility] [place], [address] MCV (mean corpuscular volume ) determinationOrdered By: Jennifer Gordon on 2025 MCV (RBC) [Entitic vol] 86.2 fL 81-99 [facility] Mean corpuscular hemoglobin (MCH) determinationOrdered By: Jennifer Gordon on 2025 MCH (RBC) [Entitic mass] 25.9 pg Low 27.0-32.0 [facility] Mean corpuscular hemoglobin concentration (MCHC) determinationOrdered By: Jennifer Gordon on 2025 MCHC (RBC) [Mass/Vol] 30.1 g/dL Low 32-36 [facility] Mean platelet volume determi nationOrdered By: Jennifer Gordon on 2025 Platelet mean volume (Bld) [Entitic vol] 10.5 fL 6.2-12.0 [facility] Microscopic analysis of urin e for red blood cells (RBC)Ordered By: Jennifer Gordon on 2025 Microscopic analysis of urine for red blood cells (RBC) 0-5 SEEN /hpf 0-5 [facility] Monocyte percentageOrdered B y: Jennifer Gordon on 2025 Monocytes/100 WBC (Bld) 7.0 % 0-10 [facility] Mucus LM Ql (Urine sed)Order ed By: Jennifer Gordon on 2025 Mucus Ql (Urine sed) 0 SEEN /hpf [facility] Neutrophil percentageOrdered By: Jennifer Gordon on 2025 Neutrophils/100 WBC (Bld) 71.2 % High 47-70 [facility] Nitrite Test strip Ql (U)Ord ered By: Jennifer Gordon on 2025 Nitrite Ql (U) Negative Negative [facility] Nucleated red blood cell per centageOrdered By: Jennifer Gordon on 2025 Nucleated RBC/100 WBC (Bld) [Ratio] 0 % 0-5 [facility] Platelet countOrdered By: Felipe Gordon on 2025 Platelets (Bld) [#/Vol] 347 10*3/uL 150-450 [facility] Potassium measurement (mass/ volume)Ordered By: Jennifer Gordon on 2025 Potassium (Unsp spec) [Mass/Vol] 5.6 mmol/L High 3.3-5.1 [facility] Protein Test strip Ql (U)Ord ered By: Jennifer Gordon on 2025 Protein Ql (U) 100 mg/dl High Negative [facility] RBC Auto (Bld) [#/Vol]Ordere d By: Jennifer Gordon on 2025 RBC (Bld) [#/Vol] 4.05 10*6/uL Low 4.2-5.4 [facility] Screening total cholesterol/ high density lipoprotein (HDL) cholesterol ratioOrdered By: Jennifer Gordon on 2025 Cholesterol.total/Camille sterol in HDL [Mass ratio] 4.76 {ratio} [facility] Serum creatinine measurement (mass/volume)Ordered By: Jennifer Gordon on 2025 Creatinine [Mass/Vol] 1.47 mg/dL High 0.70-1.20 [facility] Serum globulin measurementOr dered By: Jennifer Gordon on 2025 Globulin (S) [Mass/Vol] 3.3 g/dL 2.2-4.2 [facility] Serum glucose measurement (m ass/volume)Ordered By: Jennifer Gordon on 2025 Glucose [Mass/Vol] 98 mg/dL 70-99 [facility] Serum or plasma alanine hester otransferase (ALT) measurementOrdered By: Jennifer Gordon on 2025 ALT [Catalytic activity/Vol] 27 U/L <35 [facility] Serum or plasma albumin marivel urement (mass/volume)Ordered By: Jennifer Gordon on 2025 Albumin [Mass/Vol] 4.2 g/dL 3.4-4.8 [facility] Serum or plasma albumin/glob ulin mass ratioOrdered By: Jennifer Gordon on 2025 Albumin/Globulin [Mass ratio] 1.3 {ratio} 0.9-2.4 [facility] Serum or plasma alkaline wai sphatase measurementOrdered By: Jennifer Gordon on 2025 ALP [Catalytic activity/Vol] 80 U/L 35-104 [facility] Serum or plasma calcium marivel urement (mass/volume)Ordered By: Jennifer Gordon on 2025 Calcium [Mass/Vol] 9.5 mg/dL 7.6-11.0 [facility] Serum or plasma cholesterol in HDL measurement (mass/volume)Ordered By: Jennifer Gordon on 2025 Cholesterol in HDL [Mass/Vol] 45 mg/dL >40 [facility] Comment on above: National Cholesterol Education Program (NCEP) guidelines:<40 mg/dL: Low HDL-cholesterol (major risk factor for CHD)>= 60 mg/dL: High HDL-cholesterol (negative risk factor for CHD)HDL-cholesterol is affected by a number of factors, e.g. smoking, exercise, hormones, sex and age. Serum or plasma cholesterol measurement (mass/volume)Ordered By: Jennifer Gordon on 2025 Cholesterol [Mass/Vol] 214 mg/dL High <201 [facility] Comment on above: Cholesterol level, D esirable <200 mg/dLBorderline high cholesterol 200-239 mg/dLHigh cholesterol >=240 mg/dLRecommendations of the NCEP Adult Treatment Panel for the following risk-cutoff thresholds for the [place] population. Serum or plasma urea nitroge n measurement (mass/volume)Ordered By: Jennifer Gordon on 2025 Urea nitrogen [Mass/Vol] 20 mg/dL High 4-19 [facility] Sodium levelOrdered By: Ashley Gordon on 2025 Sodium [Moles/Vol] 135 mmol/L 133-145 [facility] Squamous epithelial cells de tection in urine sediment by light microscopyOrdered By: Jennifer Gordon on 2025 Epithelial cells.squamous LM Ql (Urine sed) 0-5 SEEN /hpf 5-10 [facility] TSH DL <= 0.005 mIU/L QnOrde red By: Jennifer Gordon on 2025 TSH Qn 0.566 uIU/mL 0.300-4.200 [facility] Thyroid Stim Hormone (TSH)on 2025 TSH 0.566 uIU/mL Normal 0.300-4.200 [facility] Comment on above: Performed By: #### L 503.0106, L506.1001, L503.6030, L100.9950, L503.6550, L100.0100 #### [facility] [address] [place], [address] Total proteinOrdered By: Amadou Gordon on 2025 Protein [Mass/Vol] 7.5 g/dL 5.9-8.4 [facility] Triglycerides measurementOrd ered By: Jennifer Gordon on 2025 Triglyceride [Mass/Vol] 160 mg/dL <199 [facility] Comment on above: The drugs N-Acetylcy steine and Metamizole may falsely depress this assay. Normal range: <150 mg/dLBorderline High: 150-199 mg/dLHigh: 200-499 mg/dLVery High: >500 mg/dL Urinalysis, Completeon 04-16 EPI,SQUAMOUS 0-5 SEEN Normal 5-10 [facility] Comment on above: Order Comment: MAE CTOR TO SPECIFY Performed By: #### L 503.0106, L506.1001, L503.6030, L100.9950, L503.6550, L100.0100 #### [facility] [address] [place], [address] RBC 0-5 SEEN Normal 0-5 [facility] Comment on above: Order Comment: MAE CTOR TO SPECIFY Performed By: #### L 503.0106, L506.1001, L503.6030, L100.9950, L503.6550, L100.0100 #### [facility] [address] [place], [address] WBC 0-5 SEEN Normal 0-5 [facility] Comment on above: Order Comment: MAE CTOR TO SPECIFY Performed By: #### L 503.0106, L506.1001, L503.6030, L100.9950, L503.6550, L100.0100 #### [facility] [address] [place], [address] BACTERIA 0 SEEN Normal None Seen [facility] Comment on above: Order Comment: MAE CTOR TO SPECIFY Performed By: #### L 503.0106, L506.1001, L503.6030, L100.9950, L503.6550, L100.0100 #### [facility] [address] [place], [address] Mucus Ql (Urine sed) 0 SEEN Normal [facility] Comment on above: Order Comment: MAE CTOR TO SPECIFY Performed By: #### L 503.0106, L506.1001, L503.6030, L100.9950, L503.6550, L100.0100 #### [facility] [address] [place], [address] Urine clarityOrdered By: Amadou Gordon on 2025 Clarity (U) Clear Clear [facility] Urine color determinationOrd ered By: Jennifer Gordon on 2025 Color (U) Straw Yellow [facility] Urine glucose detectionOrder ed By: Jennifer Gordon on 2025 Glucose Ql (U) Normal mg/dl Normal [facility] Urine leukocyte esterase det ection by dipstickOrdered By: Jennifer Gordon on 2025 Leukocyte esterase Test strip Ql (U) Negative Negative [facility] Urine pHOrdered By: Jennifer ayala on 2025 pH (U) 6.5 [pH] 5.0 - 8.0 [facility] Urine sediment bacteria coun t by microscopy (number/high power field)Ordered By: Jennifer Gordon on 2025 Bacteria LM.HPF (Urine sed) [#/Area] 0 /[HPF] None Seen [facility] Urine specific gravity measu rementOrdered By: Jennifer Gordon on 2025 Specific gravity (U) [Rel density] 1.010 1.002-1.030 [facility] Urine urobilinogen measureme ntOrdered By: Jennifer Gordon on 2025 Urobilinogen Ql (U) Normal mg/dl Normal [facility] White blood cell (WBC) count Ordered By: Jennifer Gordon on 2025 WBC (Bld) [#/Vol] 10.9 10*3/uL 4.4-11.0 [facility] White blood cell countOrdere d By: Jennifer Gordon on 2025 White blood cell count 0-5 SEEN /hpf 0-5 [facility] Internal Medicine Office Vis iton 04-15-2025 Internal Medicine Office Visit [facility] [place] [address] [place] [address] OFFICE VISIT Date of Service: 04/16/25 MR#: [id number] Acct: [id number] Name: RADHA SHAFER Rep #: [id number] : 1960 Provider: Dr. 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 Is patient in pain?: No Allergies Penicillins Allergy (Unknown, Verified 04/16/25 13:20) Unknown fremanezumab-vfrm (From Ajovy Syringe) Adverse Reaction (Severe, Verified 04/16/25 13:27) Diarrhea vancomycin Adverse Reaction (Verified 04/16/25 13:20) Rash Medications ???Medication ???Instructions ???Recorded ???Confirmed ???Type Disability Placard #1 ea 02/07/23 04/16/25 Rx aspirin 81 mg tablet,delayed 81 mg PO DAILY heart health 04/16/25 History release (Adult Low Dose Aspirin) cholecalciferol (vitamin D3) 50 50 mcg PO DAILY vitamin 04/18/23 0 04/16/25 History mcg (2,000 unit) capsule ferrous sulfate 325 mg (65 mg 325 mg PO DAILY 04/18/23 04/16/25 History iron) tablet levocarnitine 330 mg tablet 330 mg PO TID vitamin 04/18/2309/30 History compr.stocking,thigh,sh ort,lrg #24 ea 02/29/24 04/16/25 Rx lovastatin 10 mg tablet 10 mg PO QPM cholesterol #90 tabs 10/17/24 04/16/25 Rx omeprazole 40 mg capsule,delayed 40 mg PO DAILY for acid reflux #90 11/22/24 04/16/25 Rx release caps levothyroxine 175 mcg tablet 175 mcg PO DAILY thyroid #90 tabs 11/29/24 04/16/25 Rx vitamin E (dl, acetate) 45 mg (100 45 mg PO QDAY 01/06/25 04/16/25 History unit) capsule metoprolol tartrate 100 mg tablet 100 mg PO BID blood pressure #180 02/18/25 04/16/25 Rx tabs nifedipine 30 mg tablet,extended 30 mg PO DAILY blood pressure #90 04/03/25 04/16/25 Rx release tabs albuterol sulfate 90 mcg/actuation 2 puff inhalation Q6H PRN 04/16/25 History aerosol inhaler fluticasone fur. 200 mcg-umeclid 1 inh inhalation DAILY breathing 0 04/04/25 04/16/25 Rx 62.5 mcg-vilant 25 mcg #3 ea inhalat.powder (Trelegy Ellipta) ipratropium 0.5 mg-albuterol 3 mg 3 ml inhalation Q4-6H PRN 04/04/2 5 04/16/25 Rx (2.5 mg base)/3 mL nebulization shortness of breath or wheezing soln #180 mL roflumilast 250 mcg tablet 250 mcg PO QDAY 4 weeks #28 tabs 0 04/04/25 04/16/25 Rx (Daliresp) duloxetine 60 mg capsule,delayed 60 mg PO DAILY mental health #90 0 04/07/25 04/16/25 Rx release caps doxepin 100 mg capsule 100 mg PO QHS #30 caps 04/08/25 Rx tizanidine 4 mg tablet See Rx Instructions .Route 5 04/16/25 Rx .COMPLEX spasms #150 tabs lisinopril 20 mg tablet 10 mg PO QDAY 04/16/25 04/16/25 Hi story Have you fallen in the past year?: No Nurse's Note: needs everything refilled. [facility] Medical History Arthrosis of right acromioclavicular joint Tendinosis of right rotator cuff Impingement of right shoulder Right shoulder pain Myalgia Neck pain Low back pain Anxiety Depression Osteoporosis Smoker On home oxygen therapy COPD (chronic obstructive pulmonary disease) Hypertension Hx of ventricular tachycardia COPD (chronic obstructive pulmonary disease) Chronic hypoxemic respiratory failure Polyclonal gammopathy Bence Davila protein present in urine Obesity Nonsustained ventricular tachycardia Coronary artery disease Syncope Palpitations Thyroid cancer Syncope and collapse Essential hypertension Fatigue Cervical radiculopathy Smoking greater than 30 pack years Hypoxia Chronic diarrhea Recurrent falls Fatty liver FELISA (obstructive sleep apnea) CKD (chronic kidney disease) stage 4, GFR 15-29 ml/min Acquired hypothyroidism History of vitamin D deficiency Peripheral arterial disease Vertigo Polyneuropathy Insomnia Carnitine palmitoyltransferase II deficiency Vision problems Thyroid cancer GERD (gastroesophageal reflux disease) Osteoarthritis Hypothyroid Neuropathy Kidney disease Hypertension History of emotional problems Chronic bronchitis Surgical History History of cholecystectomy Cataract extraction status History of surgical procedure H/O thyroidectomy S/P cholecystectomy History of surgical procedure H/O wrist surgery History of repair of rotator cuff History of (more content not included)... Normal [facility] MR CARDIAC MORPHOLOGY WITH A ND WITHOUT CONTRAST WITHOUT VELOCITY FLOWon 04-07-2025 MR CARDIAC MORPHOLOGY WITH AND WITHOUT CONTRAST WITHOUT VELOCITY FLOW [facility] CMR Report Name: HOLLIS RADHA L : Scan Date: Electronically signed by Eleonora Sawyer 2024-Michael 15:38:37 VITALS ====== ======== HEIGHT: 65 in (165 cm) WEIGHT: 216 lbs (98 kgs) BSA: 2.04 m 2 FINAL IMPRESSION ====== ======== Normal biventricular size and systolic function. No evidence or ARVC or amyloidosis. ===== SUMMARY ====== ======== The patient is a 64-year woman with a history of non-sustained VT. Cardiac MRI to evaluate for myocardial disease LEFT VENTRICLE: Normal LV size. Normal Lv wall thickness. Normal regional wall motion. Quantitative LVEF 55 %. VIABILITY: Mild LGE is noted at the inferior RV insertion site which is non specific. LV scar size is 1 %. RIGHT VENTRICLE: Normal LV size and systolic function. Quantitative RVEF 59 %. No MRI evidence of ARVD/C. LEFT ATRIUM: LA cavity size is normal. RIGHT ATRIUM: RA cavity size is normal. PERICARDIUM: Pericardium is normal. There is no pericardial effusion. PLEURAL EFFUSION: There is no pleural effusion. AORTIC VALVE: Aortic valve leaflets are normal. Trivial AR. Regurgitant volume is 2 ml. There is no aortic stenosis. Vmax 1.5 m/s. MITRAL VALVE: Mitral valve leaflets are normal. TRICUSPID VALVE: Tricuspid valve leaflets are normal. PULMONIC VALVE: Pulmonic valve leaflets are normal. There is no pulmonic regurgitation. There is no pulmonic stenosis. Vmax 0.9 m/s. AORTIC ROOT: Normal caliber thoracic aorta with the following measurements at the PA bifurcation: AAo 34 x 33 mm; Tammy 26 x 24 mm. OTHER FINDINGS: No evidence of myocardial edema by T2 mapping. No evidence of iron overload by T2* mapping. No evidence of extracellular expansion or cardiac amyloidosis. CORE EXAM ====== ======== MEASUREMENTS ------ VOLUMETRIC ANALYSIS . . LV Reference RV Reference +------+ +--- ---+ +------+ + EDV ml 124 (82-162) 107 (75-160) ml/m 2 61 (53-87) 53 (49-86) ESV ml 55 (20-57) 44 (11-63) ml/m 2 27 (13-31) 21 (8-34) CO L/min 4.04 3.76 L/min/m 2 1.98 1.84 MASS g 113 (73-145) g/m 2 55 (48-78) SV ml 68 (56-111) 64 (55-106) ml/m 2 33 (36-60) 31 (34-58) EF % 55 (60-78) 59 (57-81) '------+ +--- ---+ +------+ ' CARDIAC OUTPUT HR: 59 BPM LV DIMENSIONS WALL THICKNESS - ANTEROSEPTAL: 1.5 cm WALL THICKNESS - INFEROLATERAL: 0.9 cm WALL THICKNESS - MAXIMUM: 1.5 cm LV ALMAZ: 5.1 cm LV ESD: 3.6 cm LA DIMENSIONS (LV SYSTOLE) AREA - 2 CHAMBER: 23 cm 2 LENGTH - 2 CHAMBER: 5.0 cm AREA - 4 CHAMBER: 21 cm 2 LENGTH - 4 CHAMBER: 5.0 cm VOLUME: 82 ml VOLUME NORMALIZED: 40.2 ml/m 2 RA DIMENSIONS (RV SYSTOLE) AREA - 4 CHAMBER: 14 cm 2 LENGTH - 4 CHAMBER: 3.9 cm AORTIC ROOT DIMENSIONS ANNULUS: 2.6 cm SINUS OF VALSALVA: 3.3 cm SINOTUBULAR JUNCTION: 2.9 cm EXTRACELLULAR VOLUME MEASUREMENT PRE-CONTRAST T1 MYOCARDIUM: 1011 msec PRE-CONTRAST T1 LV CAVITY: 1735 msec POST-CONTRAST T1 MYOCARDIUM: 354 msec POST-CONTRAST T1 LV CAVITY: 207 msec HEMATOCRIT: 33 % HEMATOCRIT DATE: ECV: 28.9 % IRON QUANTIFICATION MYOCARDIAL T2*: 25 msec LIVER T2*: 26 msec 17 SEGMENT ------ . ------ . Segments Wall Motion Hyperenhancement Stress Perfusion Interpretation + +- +--------- ---------+ -----+ + Base Anterior Normal/Hyper None Normal Base Anteroseptal Normal/Hyper None Normal Base Inferoseptal Normal/Hyper 1-25% Non-CAD Scar Base Inferior Normal/Hyper None Normal Base Inferolateral Normal/Hyper None Normal Base Anterolateral Normal/Hyper None Normal Mid Anterior Normal/Hyper None Normal Mid Anteroseptal Normal/Hyper None Normal Mid Inferoseptal Normal/Hyper None Normal Mid Inferior Normal/Hyper None Karishma (more content not included)... Normal [facility] Comment on above: Order Comment: Injur y/Trauma or Illness?:Illness/Other How long have you had these symptoms (acute/chronic)?:Chronic Reason for exam?:A-fib [facility] TO READ Type of Exam?:Initial Additional signs and symptoms?:n POC [facility] Creatinine [Mass/Vol] 1.5 mg/dL High 0.6-1.2 [facility] [place] [facility] Comment on above: Performed By: #### L [id number] #### [facility] [address] [place], [place] [address] Maurice Coello M.D. [id number] Pulmonary Visit Reporton Pulmonary Visit Report [facility] [place] [address] [place], [place] [id number] OFFICE VISIT Date of Service: 04/04/25 MR#: [id number] Acct: [id number] Name: RADHA SHAFER ANIL Rep #: [id number] : 1960 Provider: Colette Black NP Age/Sex: 64/F Location: [facility] [place].[facility] Status: Signed Assessment and Plan Assessment and Plan (1) Stage 3 severe COPD by GOLD classification: Status: Acute Plan: COPD is currently stable today. She is not exacerbating. I have recommended that she continue with use of triple therapy. Due to the exacerbations that the patient has reported in the last year along with the chest congestion that is present I have recommended that she begin use of Daliresp at the 250 mcg dosing initially until follow-up. The use and potential side effects of this medication were reviewed at length with patient today. On follow-up if the patient is tolerating this medication at this dose and I will consider increasing to the 500 mcg dosing. The patient should also have available ipratropium albuterol solution to nebulized on an as-needed basis. I believe that this would help decrease hospitalization as the patient reports significant benefit when using nebulized treatments inpatient. (2) FELISA (obstructive sleep apnea): Status: Chronic Plan: The patient remains noncompliant with nocturnal PAP therapy, despite recommendations to treat sleep apnea. (3) Hypoxemia: Status: Chronic Plan: The patient will perform a walking oximetry in the office today. The recommendation is to utilize 4 L/min of supplemental oxygen throughout the day at night unless the 6-minute walk test shows a need for higher dosing. The patient should maintain an oxygen saturation of 89 to 92%. The patient is using and benefiting from supplemental oxygen. (4) Smoking greater than 30 pack years: Status: Acute Comment: 1 pack/day x 20 years quit in 2012 Plan: LDCT was previously ordered and is planned for this week. Orders: Orders Walking Oximetry Today J44.9 - Chronic obstructive pulmonary disease, unspecified Medications: New ipratropium-albuterol 0.5 mg-3 mg(2.5 mg base)/3 mL 3 mL inhalation Q4-6H PRN 180 mL 6RF shortness of breath or wheezing roflumilast (Daliresp) 250 mcg PO QDAY 4 weeks 28 tabs 2RF J44.9 - Chronic obstructive pulmonary disease, unspecified Refilled isbtqfiteka-qdthbyovi-b ilanter 200-62.5-25 mcg (Trelegy Ellipta) 1 inh inhalation DAILY 3 ea 3RF breathing G47.33 - Obstructive sleep apnea (adult) (pediatric) Plan Details Follow Up: 8 Weeks (LMR) HPI HPI Comments Details: The patient is a 63-year-old female who presents to the clinic today for a routine scheduled follow- up office visit. She is ambulatory and currently on room air. The patient reports that she has been hospitalized every 2 months for her COPD in the past year. She believes that she has been treated 6 times in the last year for a COPD exacerbation. This [facility]. Patient does report that she has been to the [facility] system as well. The patient has a 22-puxl-zfau smoking history, having quit completely in 2012. She is currently retired/disabled. 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 She was previously followed by an outside report analyst presented to our office on a stable inhaler regimen including Trelegy Ellipta. The patient utilizes supplemental oxygen at 4 L/min at all times. Today patient reports that she has had a runny nose all the time . She does report that wheezing and cough is present. Cough is productive with chunky thick brownish colored sputum. She reports that she experiences chronic chest congestion. She has shortness of breath with exertion with or without supplemental oxygen. Low-dose CT scan completed in June 2023 demonstrated several small subcentimeter calcified nodules in the right upper lobe. She has remained compliant with the use of Trelegy Ellipta 200 mcg and reports infrequent use of her rescue inhaler. The patient stated that she has already completed pulmonary rehab in the past. She has not had any recent pulmonary function studies completed. She is not treating her sleep apnea. She is not able to adjust to mask. She is stays a 4 L/min of supplemental oxygen throughout the day. 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 She ends up in rhabdomyolysis when she gets a CPT2 attack. Intake Vital Signs 07/17/24 08:00 10/16/24 13:23 01/06/25 10:18 04/04/25 08:16 04/04/25 14:35 04/04/25 14:36 04/04/25 14:37 04/04/25 14:38 04/04/25 14:39 04/04/25 14:40 04/04/25 14:41 Height 5 ft 5 in 5 ft 5 in 5 ft 5 in 5 ft 5 in Weight: 210 lb BMI 34.9 BP 165/82 H Blood Pressure Location Lt brachial Position Sitting Respiration 20 H Pulse 68 66 97 99 1 (more content not included)... Normal [facility] Orthopedic Visit Reporton Orthopedic Visit Report [facility] [address] [place] [address] [address] [place] [address] OFFICE VISIT Date of Service: 04/03/25 MR#: [id number] Acct: [id number] Name: RADHA SHAFER Rep #: [id number] : 1960 Provider: Dr. Cary shah MD Age/Sex: 64/F Location: [facility] [place].[facility] Status: Signed with Addenda ADDENDUM by QI Khan on 04/03/25 at 1419 Office Procedure Documentation entered by Mayank Khan MA 04/03/25 14:19: Ortho Injections Injections Yes Subacromial Injection Right Is this a patient provided medication?: No Details: Obtained consent for injection. Under sterile conditions, injected the patients right shoulder with 2cc Kenalog, and 4cc Bupivacaine. The patient tolerated the injection well without any noted complication. Patient should call our office if redness develops, pain worsens or if they have any concerns. Office Meds Kenalog 40 mg/mL suspension for injection Performing Provider: Cary Jacobsen MD Performing Location: [facility] Administered by: Cary Jacobsen MD on 04/03/25 14:17 Dose Route Admin Location Dispensed Lot Number Expiration Date NDC Man ufacturer 40 mg intra-articular Right shoulder 1 mL [id number] 06/06/27 4406-2001-59 B [employer] Date cc: * Signed Intake Vital Signs 03/27/25 11:34 Height 5 ft 5 in Weight: 217 lb BMI 36.1 BP 169/79 H Blood Pressure Location Lt brachial Position Sitting Respiration 17 Pulse 96 Pulse Source Monitor Temp 98.2 F Temp Source Temporal Pulse Oximetry (%) 95 Oxygen Delivery Method nasal canula Oxygen Flow Rate (L/min) 4 Intake Visit Reasons: RIGHT SHOULDER Chief Complaint: MRI Review Accompanied by: Self Is patient in pain?: Yes Allergies Penicillins Allergy (Unknown, Verified 04/03/25 13:55) Unknown vancomycin Adverse Reaction (Verified 04/03/25 13:57) Rash Medications ???Medication ???Instructions ???Recorded ???Confirmed ???Type Disability Belgica #1 ea 02/07/23 04/03/25 Rx aspirin 81 mg tablet,delayed 81 mg PO DAILY heart health 04/03/25 History release (Adult Low Dose Aspirin) cholecalciferol (vitamin D3) 50 50 mcg PO DAILY vitamin 04/18/23 0 04/03/25 History mcg (2,000 unit) capsule ferrous sulfate 325 mg (65 mg 325 mg PO DAILY 04/18/23 04/03/25 History iron) tablet levocarnitine 330 mg tablet 330 mg PO TID vitamin 04/18/23 History compr.stocking,thigh,sh ort,lrg #24 ea 02/29/24 04/03/25 Rx triheptanoin 8.3 kcal/mL oral 166 kcal PO BID 06/12/24 04/03/25 History liquid (Dojolvi) lovastatin 10 mg tablet 10 mg PO QPM cholesterol #90 tabs 10/17/24 04/03/25 Rx tizanidine 4 mg tablet See Rx Instructions .Route 4 04/03/25 Rx .COMPLEX spasms #150 tabs fluticasone fur. 200 mcg-umeclid 1 inh inhalation DAILY breathing 0 11/07/24 04/03/25 Rx 62.5 mcg-vilant 25 mcg #3 ea inhalat.powder (Trelegy Ellipta) omeprazole 40 mg capsule,delayed 40 mg PO DAILY for acid reflux #90 11/22/24 04/03/25 Rx release caps duloxetine 60 mg capsule,delayed 60 mg PO DAILY mental health #90 0 11/29/24 04/03/25 Rx release caps levothyroxine 175 mcg tablet 175 mcg PO DAILY thyroid #90 tabs 11/29/24 04/03/25 Rx vitamin E (dl, acetate) 45 mg (100 45 mg PO QDAY 01/06/25 04/03/25 History unit) capsule metoprolol tartrate 100 mg tablet 100 mg PO BID blood pressure #180 02/18/25 04/03/25 Rx tabs doxepin 100 mg capsule 100 mg PO QHS #30 caps 03/04/25 Rx lisinopril 20 mg tablet 20 mg PO QDAY #90 tabs 04/03/25 Rx nifedipine 30 mg tablet,extended 30 mg PO DAILY blood pressure #90 04/03/25 04/03/25 Rx release tabs Have you fallen in the past year?: Yes [facility] Medical History Arthrosis of right acromioclavicular joint Tendinosis of right rotator cuff Impingement of right shoulder Right shoulder pain Myalgia Neck pain Low back pain Anxiety Depression Osteoporosis Smoker On home oxygen therapy COPD (chronic obstructive pulmonary disease) Hypertension Hx of ventricular tachycardia COPD (chronic obstructive pulmonary disease) Chronic hypoxemic respiratory failure 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 Normal [facility] Neurology Visit Reporton Neurology Visit Report [facility] [address], [address] [place] [address] OFFICE VISIT Date of Service: 03/27/25 MR#: [id number] Acct: [id number] Name: RADHA SHAFER ANIL Rep #: [id number] : 1960 Provider: Dr. Rusty ayers MD Age/Sex: 64/F Location: [facility] Status: Signed HPI [facility] Chief Complaint: Details: Interim History: Radha returns for follow-up visit. She has stage III/IV chronic renal insufficiency, left-sided facial shingles (2020), sleep apnea (she uses supplemental oxygen; she no longer uses CPAP), and hypothyroidism. She sees a information technology internship. She had a left knee replacement in 2008. She has chronic low back pain. She saw a rn pain management, Dr. Mancini, in 2018 and had lumbar injections which were of benefit. Her right knee pain subsided. She has prominent neck pain and has had bilateral upper extremity radicular pain that extends to the hand. Cervical paraspinal muscle trigger point injections given at this office (last in December 2024) was of benefit. Lumbar trigger point injections were of benefit. She had previously seen Dr. Jules, an orthopedic surgeon, and had a lumbar epidural steroid injection; this was of benefit. Surgery was not recommended. Physical therapy in the past was not of benefit and had worsened her neck pain. Her low back pain has been more pronounced since 2023 and has limited her mobility. A lumbar MRI in January 2025 revealed multilevel spondylosis with variable both spinal canal and foraminal stenoses up to moderate/severe as detailed in the report below. She previously took hyoscyamine for abdominal pain following meals. In 2015, she developed marked muscle pain and spasms affecting all extremities. She was found to have elevated CPK, myoglobin, ESR and C-reactive protein. She saw a neurologist at [facility], and was diagnosed with carnitine palmitoyltransferase II (CPT II) deficiency; MCT oil was not well- tolerated; she sees a physician at [facility] in [place]. Dojolvi was discontinued due to a side effect of diarrhea. Tizanidine is of benefit. She takes ibuprofen. She had period of increased muscle pain and rhabdomyolysis, and increased renal insufficiency in June 2024 that was triggered by increased physical exertion and dehydration and was hospitalized and had improvement. Her creatinine kinase in June 2024 was normal. She had a flare-up of diffuse musculoskeletal pain relating to CPT II in February 2025 due to dehydration. She was hospitalized and treated with IV fluids. She takes levocarnitine. She takes lovastatin for hyperlipidemia and is tolerating this well. She takes doxepin for insomnia. She saw a coal pipeline operator in 2018 for right foot pain and had right foot injections for a heel spur; her foot pain resolved. She had left hip pain. She has had intermittent vertigo since 2019. Meclizine lost efficacy. She denied having hearing loss or tinnitus. She has had numbness in the feet and burning pain in the feet. She has had some left calf cramping; this has occurred at rest and with movement. She takes levothyroxine. Vicodin, baclofen, B12 injection (for fatigue) nabumetone, acetaminophen (for prior right hamstring region pain) and tramadol were not of significant benefit. She is on supplemental oxygen for her COPD and sleep apnea (she did not tolerate CPAP). She saw a ethanol operations manager, Dr. 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 She states that she was diagnosed with atrial fibrillation and has been prescribed metoprolol. She has not been prescribed an anticoagulant. She has had recent prominent right shoulder pain and is seeing an orthopedic surgeon, Dr. Jacobsen. Physical Exam: Neuro: The patient is awake and alert and responds appropriately; speech is fluent Neck: no bruits Heart: Regular rate and rhythm Supplemental Info EMG/nerve conduction studies of the left arm and left leg (10/22/2010): Left peroneal nerve lesion and possible myopathy. The classic inflammatory myopathy produces a mix EMG pattern of small abundant units that are easily recruitable, but have reduced total numbers. The full pattern was not seen in this case, though reduced motor recruitment was seen in a number of muscles. Hepatitis panel (08/26/2010): Negative. Muscle biopsy (10/26/2010): No evidence of inflammatory myopathy. Myofiber atrophy and is especially fiber type grouping were noted and are changes associated with denervation. It cannot be determined from the biopsy if denervation is due to peripheral neuropathy or motor neuron disease. Aldolase, striated muscle antibodies, ACH receptor binding antibodies (12/24/2010): Negative. CPK, myoglobin, aldolase, B12, folate, CMP, magnesium, CBC (03/07/2014): Creatine 1.53, MCV 77.7. Hemoglobin, hematocrit, BUN, creatinine (more content not included)... Normal [facility] L/S Spine Min 4 Viewson 02-05 L/S Spine Min 4 Views [facility] [address], [place] [address] L/S Spine Min 4 Views MR#: [id number] Acct: [id number] Name: RADHA SHAFER Rep #: [id number] : 1960 F 64 From: Benjamin Mendoza MD PCP: Dr. Jennifer Gordon MD Status: DEP AMB Study: L/S Spine Min 4 Views Date of Exam: 02/27/25 Exam# [id number] Ordering Dr: Hui Whitehead PROCEDURE: L/S SPINE MIN 4 VIEWS 02/27/2025 REASON FOR EXAM: CHRONIC PAIN TECHNIQUE: 4 view of the lumbar spine FINDINGS: Vertebrae: No acute fracture Discs: Diffuse disc space narrowing and osteophyte formation consistent with degenerative disc disease. Alignment: Mild levoscoliosis centered at L3. Anatomic alignment. No subluxation of the flexion extension views to suggest instability. Other: RAD/L/S Spine Min 4 Views IMPRESSION: Mild levoscoliosis with diffuse degenerative disc disease. No instability. Reading Location: [id number] CC: DANIEL Archer; Dr. Jennifer Gordon MD Search Engine Optimization Manager: Signed Normal [facility] Orthopedic Visit Reporton Orthopedic Visit Report [facility] [address] [place] [address] OFFICE VISIT Date of Service: 02/27/25 MR#: [id number] Acct: [id number] Name: RADHA SHAFER Rep #: [id number] : 1960 Provider: DANIEL Archer Age/Sex: 64/F Location: [facility] [place] Status: Signed Intake Vital Signs 01/06/25 10:18 Height 5 ft 5 in Intake Visit Reasons: CERVICAL SPINE Allergies Penicillins Allergy (Unknown, Verified 02/27/25 14:32) Unknown Medications ???Medication ???Instructions ???Recorded ???Confirmed ???Type Disability Placard #1 ea 02/07/23 02/27/25 Rx aspirin 81 mg tablet,delayed 81 mg PO DAILY heart health 02/27/25 History release (Adult Low Dose Aspirin) cholecalciferol (vitamin D3) 50 50 mcg PO DAILY vitamin 04/18/23 0 02/27/25 History mcg (2,000 unit) capsule ferrous sulfate 325 mg (65 mg 325 mg PO DAILY 04/18/23 02/27/25 History iron) tablet levocarnitine 330 mg tablet 330 mg PO TID vitamin 04/18/23 History compr.stocking,thigh,sh ort,lrg #24 ea 02/29/24 02/27/25 Rx nifedipine 30 mg tablet,extended 30 mg PO DAILY blood pressure #90 06/06/24 02/27/25 Rx release tabs triheptanoin 8.3 kcal/mL oral 166 kcal PO BID 06/12/24 02/27/25 History liquid (Dojolvi) lisinopril 20 mg tablet 20 mg PO QDAY 07/02/24 02/27/25 Hi story doxepin 100 mg capsule 100 mg PO QHS #30 caps 08/27/24 Rx lovastatin 10 mg tablet 10 mg PO QPM cholesterol #90 tabs 10/17/24 02/27/25 Rx tizanidine 4 mg tablet See Rx Instructions .Route 4 02/27/25 Rx .COMPLEX spasms #150 tabs fluticasone fur. 200 mcg-umeclid 1 inh inhalation DAILY breathing 0 11/07/24 02/27/25 Rx 62.5 mcg-vilant 25 mcg #3 ea inhalat.powder (Trelegy Ellipta) omeprazole 40 mg capsule,delayed 40 mg PO DAILY for acid reflux #90 11/22/24 02/27/25 Rx release caps duloxetine 60 mg capsule,delayed 60 mg PO DAILY mental health #90 0 11/29/24 02/27/25 Rx release caps levothyroxine 175 mcg tablet 175 mcg PO DAILY thyroid #90 tabs 11/29/24 02/27/25 Rx vitamin E (dl, acetate) 45 mg (100 45 mg PO QDAY 01/06/25 02/27/25 History unit) capsule metoprolol tartrate 100 mg tablet 100 mg PO BID blood pressure #180 02/18/25 02/27/25 Rx tabs Have you fallen in the past year?: Yes PFSH Medical History Right shoulder pain Myalgia Neck pain Low back pain Anxiety Depression Osteoporosis Smoker On home oxygen therapy COPD (chronic obstructive pulmonary disease) Hypertension Hx of ventricular tachycardia COPD (chronic obstructive pulmonary disease) Chronic hypoxemic respiratory failure Polyclonal gammopathy Bence Davila protein present in urine Obesity Nonsustained ventricular tachycardia Coronary artery disease Syncope Palpitations Thyroid cancer Syncope and collapse Essential hypertension Fatigue Cervical radiculopathy Smoking greater than 30 pack years Hypoxia Chronic diarrhea Recurrent falls Fatty liver FELISA (obstructive sleep apnea) CKD (chronic kidney disease) stage 4, GFR 15-29 ml/min Acquired hypothyroidism History of vitamin D deficiency Peripheral arterial disease Vertigo Polyneuropathy Insomnia Carnitine palmitoyltransferase II deficiency Vision problems Thyroid cancer GERD (gastroesophageal reflux disease) Osteoarthritis Hypothyroid Neuropathy Kidney disease Hypertension History of emotional problems Chronic bronchitis Surgical History History of cholecystectomy Cataract extraction status History of surgical procedure H/O thyroidectomy S/P cholecystectomy History of surgical procedure H/O wrist surgery History of repair of rotator cuff History of hysterectomy Hx of total knee replacement Family History Mother CVA (cerebral vascular accident) Heart disease Arthritis Lupus Father Myocardial infarction Hypertension Brother Colon cancer Brother Colon cancer Brother Cancer stomach Sister Seizures Grandfather Myocardial infarction Grandmother Myocardial infarction Social History household members: none housing: apartment current occupational status: unemployed Smoking Status: Former smoker quit date: 07/10/13 pack-years: 20 Tobacco: How many years used: 20 Electronic Cigarette Use: not used second hand exposure: No alcohol intake: never substance use type: marijuana and other details: THC gummy caffeine: Yes Type: coffee Number of servings: 2 what type of physical activity do you participate in: none seatbelt use: always do you feel safe at home: Yes HPI CERVICAL SPINE D (more content not included)... Normal [facility] Upper Ext Joint Only(Routine )on 02-25-2025 Upper Ext Joint Only(Routine) [facility] [address], [place] [id number] Upper Ext Joint Only(Routine) MR#: [id number] Acct: [id number] Name: RADHA SHAFER ANIL Rep #: [id number] : 1960 F 64 From: Benjamin Mendoza MD PCP: Dr. Jennifer Gordon MD Status: REG CLI Study: Upper Ext Joint Only(Routine) Date of Exam: 0 02/25/25 Exam# [id number] Ordering Dr: Cary Jacobsen MD EXAM: MRI right shoulder CLINICAL HISTORY: Shoulder pain, rotator cuff tear COMPARISON: X-ray 01/21/2025 TECHNIQUE: Multiplanar spin echo magnetic resonance images of the right shoulder and a [place] strength magnet FINDINGS: Mild supraspinatus and infraspinatus tendinosis and peritendinitis but no macro tear. Mild subacromial/subdeltoid bursitis. Surgical anchor in the anterior aspect of the humeral head possibly consistent with prior repair of the subscapularis tendon which appears intact. No muscular atrophy. Small joint effusion. No labral tear. Long head of the biceps tendon is intact. Mild acromioclavicular joint arthrosis. MRI/Upper Ext Joint Only(Routine) IMPRESSION: Mild supraspinatus and infraspinatus tendinosis and peritendinitis but no macro tear or muscular atrophy. Suspect prior repair of the subscapularis tendon which appears intact. Mild subacromial/subdeltoid bursitis. Small joint effusion. Mild acromioclavicular joint arthrosis. Reading Location: [id number] CC: Dr. Jennifer Gordon MD; Dr. Cayr Jacobsen MD Search Engine Optimization Manager: Signed Normal [facility] BASIC METABOLIC PANELon 02-04 Anion gap [Moles/Vol] 16 mmol/L Normal 10-20 [facility] [place] [facility] Comment on above: Order Comment: [facility] has implemented the eGFR calculation approach that does not have a coefficient for race that conforms to the NKF-ASN Task Force Recommendations. Performed By: #### 4 [id number] ####[facility] [address] [place], [place] [address] Maurice Coello M.D. [id number] Calcium [Mass/Vol] 9.1 mg/dL Normal 8.4-10.2 [facility] Comment on above: Order Comment: [facility] has implemented the eGFR calculation approach that does not have a coefficient for race that conforms to the NKF-ASN Task Force Recommendations. Performed By: #### 4 [id number] ####[facility] [address] [place] [id number] Maurice Coello M.D. [id number] Chloride [Moles/Vol] 99 mmol/L Normal 98-108 [facility] Comment on above: Order Comment: [facility] has implemented the eGFR calculation approach that does not have a coefficient for race that conforms to the NKF-ASN Task Force Recommendations. Performed By: #### 4 6124 ####[facility] [address] [place] [address] Maurice Coello M.D. [id number] Creatinine [Mass/Vol] 1.70 mg/dL High 0.60-1.10 [facility] [place] [facility] Comment on above: Order Comment: [facility] has implemented the eGFR calculation approach that does not have a coefficient for race that conforms to the NKF-ASN Task Force Recommendations. Performed By: #### 4 6124 ####[facility] [address] [place] [address] Maurice Coello M.D. [id number] EGFR 33 mL/min/1.73 m2 Low >=60 [facility] Comment on above: Order Comment: [facility] has implemented the eGFR calculation approach that does not have a coefficient for race that conforms to the NKF-ASN Task Force Recommendations. Result Comment: Ericka mated GFR was calculated using the 2020 CKD-EPI creatinine equation. Performed By: #### 4 [id number] ####[facility] [address] [place] [id number] Maurice Coello M.D. [id number] Glucose [Mass/Vol] 119 mg/dL High 65-99 [facility] Comment on above: Order Comment: [facility] has implemented the eGFR calculation approach that does not have a coefficient for race that conforms to the NKF-ASN Task Force Recommendations. Performed By: #### 4 6124 ####[facility] [address] [place] [id number] Maurice Coello M.D. [id number] HCO3 (Bld) [Moles/Vol] 26 mmol/L Normal 21-32 [facility] Comment on above: Order Comment: [facility] has implemented the eGFR calculation approach that does not have a coefficient for race that conforms to the NKF-ASN Task Force Recommendations. Performed By: #### 4 6124 #### LAB [address] [place] [address] Maurice Coello M.D. [id number] Potassium [Moles/Vol] 3.8 mmol/L Normal 3.5-5.1 [facility] [place] [facility] Comment on above: Order Comment: [facility] has implemented the eGFR calculation approach that does not have a coefficient for race that conforms to the NKF-ASN Task Force Recommendations. Performed By: #### 4 6124 #### LAB [address] [place] [address] Maurice Coello M.D. [id number] Sodium [Moles/Vol] 137 mmol/L Normal 135-145 [facility] Comment on above: Order Comment: [facility] has implemented the eGFR calculation approach that does not have a coefficient for race that conforms to the NKF-ASN Task Force Recommendations. Performed By: #### 4 6124 #### LAB [address] [place] [address] Maurice Coello M.D. [id number] Urea nitrogen [Mass/Vol] 22 mg/dL Normal 8-25 [facility] Comment on above: Order Comment: [facility] has implemented the eGFR calculation approach that does not have a coefficient for race that conforms to the NKF-ASN Task Force Recommendations. Performed By: #### 4 6124 #### LAB [address] [place] [address] Maurice Coello M.D. [id number] Urea nitrogen/Creatinine [Mass ratio] 12.9 mg/mg Normal 10.0-20.0 [facility] Comment on above: Order Comment: [facility] has implemented the eGFR calculation approach that does not have a coefficient for race that conforms to the NKF-ASN Task Force Recommendations. Performed By: #### 4 6124 #### LAB [address] [place] [address] Maurice Coello M.D. [id number] Basic metabolic 2000 panelon 02-18-2025 Anion gap [Moles/Vol] 16 mmol/L 10 - 2 0 mmol/L [facility] Calcium [Mass/Vol] 9.1 mg/dL 8.4 - 10. 2 mg/dL [facility] Chloride [Moles/Vol] 99 mmol/L 98 - 10 8 mmol/L [facility] Creatinine [Mass/Vol] 1.7 mg/dL High 0.60 - 1.20 mg/dL [facility] GFR/1.73 sq M.predicted CKD-EPI (S/P/Bld) [Vol rate/Area] 33 Low - PINF [facility] Comment on above: Estimated GFR was ca lculated using the 2020 CKD-EPI creatinine equation. Glucose [Mass/Vol] 119 mg/dL High 65 - 99 mg/dL [facility] HCO3 [Moles/Vol] 26 mmol/L 21 - 32 mmol/L [facility] Interpretation and review of laboratory results Abnormal [facility] Potassium [Moles/Vol] 3.8 mmol/L 3.5 - 5.1 mmol/L [facility] Sodium [Moles/Vol] 137 mmol/L 135 - 145 mmol/L [facility] Urea nitrogen [Mass/Vol] 22 mg/dL 8 - 25 mg/dL [facility] Urea nitrogen/Creatinine [Mass ratio] 12.9 mg/mg 10.0 - 20.0 [facility] has implemented the eGFR calculation approach that does not have a coefficient for race that conforms to the NKF-ASN Task Force Recommendations. [facility] CBC Auto Differentialon 02-04 Basophils (Bld) [#/Vol] 0.03 10*3/uL [facility] Basophils/100 WBC (Bld) 0.3 % [facility] Eosinophils (Bld) [#/Vol] 0.09 10*3/uL [facility] Eosinophils/100 WBC (Bld) 1 % [facility] Erythrocyte distribution width (RBC) [Entitic vol] 14.2 % 11.6 - 14.8 % [facility] Hematocrit (Bld) [Volume fraction] 33.1 % Low 36.0 - 46.0 % [facility] Hemoglobin (Bld) [Mass/Vol] 9.9 g/dL Low 12.0 - 16.0 g/dL [facility] Immature granulocytes (Bld) [#/Vol] 0.16 10*3/uL [facility] Immature granulocytes/100 WBC (Bld) 1.7 % [facility] Comment on above: The IG parameter is the percentage of metamyelocytes, myelocytes and promyelocytes. An immature granulocyte count (IG) of 1% or more suggests the possibility of infection, an IG count of 3% is very likely related to an infection. Interpretation and review of laboratory results Abnormal [facility] Lymphocytes (Bld) [#/Vol] 1.29 10*3/uL [facility] Lymphocytes/100 WBC (Bld) 13.8 % [facility] MCH (RBC) [Entitic mass] 25.8 pg Low 26.0 - 34.0 pg [facility] MCHC (RBC) [Mass/Vol] 29.9 g/dL Low 31.0 - 37.0 g/dL [facility] MCV (RBC) [Entitic vol] 86.4 fL 80.0 - 100.0 fL [facility] Monocytes (Bld) [#/Vol] 0.6 10*3/uL [facility] Monocytes/100 WBC (Bld) 6.4 % [facility] Neutrophils (Bld) [#/Vol] 7.15 10*3/uL High [facility] Neutrophils/100 WBC (Bld) 76.8 % [facility] Nucleated RBC (Bld) [#/Vol] 0 10*3/uL [facility] Nucleated RBC/100 WBC (Bld) [Ratio] 0 % [facility] Platelet mean volume (Bld) [Entitic vol] 9.9 fL 9.4 - 12.4 fL [facility] Platelets (Bld) [#/Vol] 277 10*3/uL [facility] RBC (Bld) [#/Vol] 3.83 10*6/uL Low [facility] WBC (Bld) [#/Vol] 9.32 10*3/uL [facility] CBC WITH AUTO DIFFERENTIALon 02-18-2025 AUTO NRBC 0.0 % Normal [facility] Comment on above: Performed By: #### L [id number] ####[facility] [address] [place], [place] [address] Maurice Coello M.D. [id number] AUTO NRBC ABS COUNT 0.00 K/mcL Normal 0.00-0.00 [facility] Comment on above: Performed By: #### L [id number] #### LAB [address] [place] [address] Maurice Coello M.D. [id number] BASOPHILS ABSOLUTE COUNT 0.03 K/mcL Normal 0.00-0.30 [facility] Comment on above: Performed By: #### L [id number] #### LAB [address] [place] [address] Maurice Coello M.D. [id number] Basophils/100 WBC (Bld) 0.3 % Normal [facility] Comment on above: Performed By: #### L [id number] #### LAB [address] [place] [address] Maurice Coello M.D. [id number] Eosinophils (Bld) [#/Vol] 0.09 10*3/uL Normal 0.00-0.50 [facility] Comment on above: Performed By: #### L [id number] #### LAB [address] [place] [address] Maurice Coello M.D. [id number] Eosinophils/100 WBC (Bld) 1.0 % Normal [facility] Comment on above: Performed By: #### L [id number] #### LAB [address] [place] [address] Maurice Coello M.D. [id number] Erythrocyte distribution width (RBC) [Ratio] 14.2 % Normal 11.6-14.8 [facility] Comment on above: Performed By: #### L [id number] #### LAB [address] [place] [address] Maurice Coello M.D. [id number] Hematocrit (Bld) [Volume fraction] 33.1 % Low 36.0-46.0 [facility] Comment on above: Performed By: #### L [id number] #### LAB [address] [place] [address] Maurice Coello M.D. [id number] Hemoglobin (Bld) [Mass/Vol] 9.9 g/dL Low 12.0-16.0 [facility] Comment on above: Performed By: #### L [id number] #### LAB [address] [place] [address] Maurice Coello M.D. [id number] IG ABSOLUTE 0.16 K/mcL Normal 0.00-0.30 [facility] Comment on above: Performed By: #### L [id number] #### LAB [address] [place] [address] Maurice Coello M.D. [id number] IG PERCENT 1.70 % Normal [facility] Comment on above: Result Comment: The IG parameter is the percentage of metamyelocytes, myelocytes and promyelocytes. An immature granulocyte count (IG) of 1% or more suggests the possibility of infection, an IG count of 3% is very likely related to an infection. Performed By: #### L [id number] #### LAB [address] [place] [address] Maurice Coello M.D. [id number] Lymphocytes (Bld) [#/Vol] 1.29 10*3/uL Normal 0.90-4.00 [facility] Comment on above: Performed By: #### L [id number] #### LAB [address] [place] [address] Maurice Coello M.D. [id number] Lymphocytes/100 WBC (Bld) 13.8 % [facility] Comment on above: Performed By: #### L [id number] #### LAB [address] [place] [address] Maurice Coello M.D. [id number] MCH (RBC) [Entitic mass] 25.8 pg Low 26.0-34.0 [facility] Comment on above: Performed By: #### L [id number] #### LAB [address] [place] [address] Maurice Coello M.D. [id number] MCV (RBC) [Entitic vol] 86.4 fL Normal 80.0-100.0 [facility] Comment on above: Performed By: #### L [id number] #### LAB [address] [place] [address] Maurice Coello M.D. [id number] MEAN CORPUSCULAR HEMOGLOBIN CONC 29.9 g/dL Low 31.0-37.0 [facility] Comment on above: Performed By: #### L [id number] #### LAB [address] [place] [address] Maurice Coello M.D. [id number] Monocytes (Bld) [#/Vol] 0.60 10*3/uL Normal 0.30-0.90 [facility] Comment on above: Performed By: #### L [id number] #### LAB [address] [place] [address] aMurice Coello M.D. [id number] Monocytes/100 WBC (Bld) 6.4 % Normal [facility] Comment on above: Performed By: #### L [id number] #### LAB [address] [place] [address] Maurice Coello M.D. [id number] NEUTROPHILS ABSOLUTE COUNT 7.15 K/mcL High 1.70-7.00 [facility] Comment on above: Performed By: #### L [id number] #### LAB [address] [place] [address] Maurice Coello M.D. [id number] Neutrophils/100 WBC (Bld) 76.8 % Normal [facility] Comment on above: Performed By: #### L [id number] #### LAB [address] [place] [address] Maurice Coello M.D. [id number] Platelet mean volume (Bld) [Entitic vol] 9.9 fL Normal 9.4-12.4 [facility] Comment on above: Performed By: #### L [id number] #### LAB [address] [place] [address] Maurice Coello M.D. [id number] Platelets (Bld) [#/Vol] 277 10*3/uL Normal 150-400 [facility] Comment on above: Performed By: #### L [id number] ####[facility] [address] [place], [place] [address] Maurice Coello M.D. [id number] RBC (Bld) [#/Vol] 3.83 10*6/uL Low 4.00-5.20 [facility] Comment on above: Performed By: #### L [id number] ####[facility] [address] [place] [id number] Maurice Coello M.D. [id number] WBC (Bld) [#/Vol] 9.32 10*3/uL Normal 4.50-11.00 [facility] Comment on above: Performed By: #### L [id number] ####[facility] [address] [place] [address] Maurice Coello M.D. [id number] CK [Catalytic activity/Vol]o n 02-18-2025 Interpretation and review of laboratory results Abnormal [facility] CPKon 02-18-2025 CPK 539 U/L High 40-170 [facility] Comment on above: Performed By: #### 4 6124 #### [facility] [address] [place] [address] Maurice Coello M.D. [id number] CPK NO MBon 02-18-2025 CK [Catalytic activity/Vol] 539 U/L High 40 - 170 U/L [facility] EKGon 02-18-2025 [facility] Glucose (Bld) [Mass/Vol]on 0 02-18-2025 Glucose [Mass/Vol] 115 mg/dL High 65 - 99 mg/dL [facility] Interpretation and review of laboratory results Abnormal [facility] POC GLUCOSE - RALSon 025 Glucose [Mass/Vol] 115 mg/dL High 65-99 [facility] Comment on above: Performed By: #### 4 6932 #### [facility] [address] [place] [id number] Maurice Coello M.D. [id number] BASIC METABOLIC PANELon 04- Anion gap [Moles/Vol] 13 mmol/L Normal 10-20 [facility] [place] [facility] Comment on above: Order Comment: Injur y/Trauma or Illness?:Illness/Other How long have you had these symptoms (acute/chronic)?:Acute Reason for exam?:sob. Hx of COPD History of cancer?:unknown Surgeries, chemotherapy, or radiation?:cholecystectomy, hysterectomy, oophrectomy, left knee replacement Type of Exam?:Initial Additional signs and symptoms?:. Performed By: #### 4 6170 #### LAB [address] [place] [address] Maurice Coello M.D. [id number] Calcium [Mass/Vol] 8.5 mg/dL Normal 8.4-10.2 [facility] Comment on above: Order Comment: Injur y/Trauma or Illness?:Illness/Other How long have you had these symptoms (acute/chronic)?:Acute Reason for exam?:sob. Hx of COPD History of cancer?:unknown Surgeries, chemotherapy, or radiation?:cholecystectomy, hysterectomy, oophrectomy, left knee replacement Type of Exam?:Initial Additional signs and symptoms?:. Performed By: #### 4 6124 #### LAB [address] [place] [address] Maurice Coello M.D. [id number] Chloride [Moles/Vol] 104 mmol/L Normal 98-108 [facility] Comment on above: Order Comment: Injur y/Trauma or Illness?:Illness/Other How long have you had these symptoms (acute/chronic)?:Acute Reason for exam?:sob. Hx of COPD History of cancer?:unknown Surgeries, chemotherapy, or radiation?:cholecystectomy, hysterectomy, oophrectomy, left knee replacement Type of Exam?:Initial Additional signs and symptoms?:. Performed By: #### 4 6117 ####[facility] [address] [place] [address] Maurice Coello M.D. [id number] Creatinine [Mass/Vol] 1.48 mg/dL High 0.60-1.10 [facility] [place] [facility] Comment on above: Order Comment: Injur y/Trauma or Illness?:Illness/Other How long have you had these symptoms (acute/chronic)?:Acute Reason for exam?:sob. Hx of COPD History of cancer?:unknown Surgeries, chemotherapy, or radiation?:cholecystectomy, hysterectomy, oophrectomy, left knee replacement Type of Exam?:Initial Additional signs and symptoms?:. Performed By: #### 4 6178 #### LAB [address] [place], [place] [address] Maurice Coello M.D. [id number] EGFR 39 mL/min/1.73 m2 Low >=60 [facility] Comment on above: Order Comment: Injur y/Trauma or Illness?:Illness/Other How long have you had these symptoms (acute/chronic)?:Acute Reason for exam?:sob. Hx of COPD History of cancer?:unknown Surgeries, chemotherapy, or radiation?:cholecystectomy, hysterectomy, oophrectomy, left knee replacement Type of Exam?:Initial Additional signs and symptoms?:. Result Comment: Ericka mated GFR was calculated using the 2020 CKD-EPI creatinine equation. Performed By: #### 4 6158 #### LAB [address] [place], [place] [address] Maurice Coello M.D. [id number] Glucose [Mass/Vol] 83 mg/dL Normal 65-99 [facility] Comment on above: Order Comment: Injur y/Trauma or Illness?:Illness/Other How long have you had these symptoms (acute/chronic)?:Acute Reason for exam?:sob. Hx of COPD History of cancer?:unknown Surgeries, chemotherapy, or radiation?:cholecystectomy, hysterectomy, oophrectomy, left knee replacement Type of Exam?:Initial Additional signs and symptoms?:. Performed By: #### 4 6176 #### LAB [address] [place] [address] Maurice Coello M.D. [id number] HCO3 (Bld) [Moles/Vol] 25 mmol/L Normal 21-32 [facility] Comment on above: Order Comment: Injur y/Trauma or Illness?:Illness/Other How long have you had these symptoms (acute/chronic)?:Acute Reason for exam?:sob. Hx of COPD History of cancer?:unknown Surgeries, chemotherapy, or radiation?:cholecystectomy, hysterectomy, oophrectomy, left knee replacement Type of Exam?:Initial Additional signs and symptoms?:. Performed By: #### 4 [id number] ####[facility] [address] [id number] Maurice Coello M.D. [id number] Potassium [Moles/Vol] 3.7 mmol/L Normal 3.5-5.1 [facility] [place] [facility] Comment on above: Order Comment: Injur y/Trauma or Illness?:Illness/Other How long have you had these symptoms (acute/chronic)?:Acute Reason for exam?:sob. Hx of COPD History of cancer?:unknown Surgeries, chemotherapy, or radiation?:cholecystectomy, hysterectomy, oophrectomy, left knee replacement Type of Exam?:Initial Additional signs and symptoms?:. Performed By: #### 4 6124 #### LAB [address] [address] Maurice Coello M.D. [id number] Sodium [Moles/Vol] 138 mmol/L Normal 135-145 [facility] Comment on above: Order Comment: Injur y/Trauma or Illness?:Illness/Other How long have you had these symptoms (acute/chronic)?:Acute Reason for exam?:sob. Hx of COPD History of cancer?:unknown Surgeries, chemotherapy, or radiation?:cholecystectomy, hysterectomy, oophrectomy, left knee replacement Type of Exam?:Initial Additional signs and symptoms?:. Performed By: #### 4 6128 #### LAB [address] [address] Maurice Coello M.D. [id number] Urea nitrogen [Mass/Vol] 17 mg/dL Normal 8-25 [facility] Comment on above: Order Comment: Injur y/Trauma or Illness?:Illness/Other How long have you had these symptoms (acute/chronic)?:Acute Reason for exam?:sob. Hx of COPD History of cancer?:unknown Surgeries, chemotherapy, or radiation?:cholecystectomy, hysterectomy, oophrectomy, left knee replacement Type of Exam?:Initial Additional signs and symptoms?:. Performed By: #### 4 6135 #### LAB [address] [address] Maurice Coello M.D. [id number] Urea nitrogen/Creatinine [Mass ratio] 11.5 mg/mg Normal 10.0-20.0 [facility] Comment on above: Order Comment: Injur y/Trauma or Illness?:Illness/Other How long have you had these symptoms (acute/chronic)?:Acute Reason for exam?:sob. Hx of COPD History of cancer?:unknown Surgeries, chemotherapy, or radiation?:cholecystectomy, hysterectomy, oophrectomy, left knee replacement Type of Exam?:Initial Additional signs and symptoms?:. Performed By: #### 4 6124 ####[facility] [address] [facility] [place] [place] [address] Maurice Coello M.D. [id number] Basic metabolic 2000 panelon 02-17-2025 Anion gap [Moles/Vol] 13 mmol/L 10 - 2 0 mmol/L [facility] Calcium [Mass/Vol] 8.5 mg/dL 8.4 - 10. 2 mg/dL [facility] Chloride [Moles/Vol] 104 mmol/L 98 - 10 8 mmol/L [facility] Creatinine [Mass/Vol] 1.48 mg/dL High 0.60 - 1.20 mg/dL [facility] GFR/1.73 sq M.predicted CKD-EPI (S/P/Bld) [Vol rate/Area] 39 Low - PINF [facility] Comment on above: Estimated GFR was ca lculated using the 2020 CKD-EPI creatinine equation. Glucose [Mass/Vol] 83 mg/dL 65 - 99 mg/dL [facility] HCO3 [Moles/Vol] 25 mmol/L 21 - 32 mmol/L [facility] Potassium [Moles/Vol] 3.7 mmol/L 3.5 - 5.1 mmol/L [facility] Sodium [Moles/Vol] 138 mmol/L 135 - 145 mmol/L [facility] Urea nitrogen [Mass/Vol] 17 mg/dL 8 - 25 mg/dL [facility] Urea nitrogen/Creatinine [Mass ratio] 11.5 mg/mg 10.0 - 20.0 [facility] has implemented the eGFR calculation approach that does not have a coefficient for race that conforms to the NKF-ASN Task Force Recommendations. [facility] CBC Auto Differentialon 02-04 Basophils (Bld) [#/Vol] 0.04 10*3/uL [facility] Basophils/100 WBC (Bld) 0.5 % [facility] Eosinophils (Bld) [#/Vol] 0.06 10*3/uL [facility] Eosinophils/100 WBC (Bld) 0.8 % [facility] Erythrocyte distribution width (RBC) [Entitic vol] 14.1 % 11.6 - 14.8 % [facility] Hematocrit (Bld) [Volume fraction] 31.4 % Low 36.0 - 46.0 % [facility] Hemoglobin (Bld) [Mass/Vol] 9.3 g/dL Low 12.0 - 16.0 g/dL [facility] Immature granulocytes (Bld) [#/Vol] 0.13 10*3/uL [facility] Immature granulocytes/100 WBC (Bld) 1.7 % [facility] Comment on above: The IG parameter is the percentage of metamyelocytes, myelocytes and promyelocytes. An immature granulocyte count (IG) of 1% or more suggests the possibility of infection, an IG count of 3% is very likely related to an infection. Interpretation and review of laboratory results Abnormal [facility] Lymphocytes (Bld) [#/Vol] 1.54 10*3/uL [facility] Lymphocytes/100 WBC (Bld) 19.6 % [facility] MCH (RBC) [Entitic mass] 25.9 pg Low 26.0 - 34.0 pg [facility] MCHC (RBC) [Mass/Vol] 29.6 g/dL Low 31.0 - 37.0 g/dL [facility] MCV (RBC) [Entitic vol] 87.5 fL 80.0 - 100.0 fL [facility] Monocytes (Bld) [#/Vol] 0.72 10*3/uL [facility] Monocytes/100 WBC (Bld) 9.2 % [facility] Neutrophils (Bld) [#/Vol] 5.35 10*3/uL [facility] Neutrophils/100 WBC (Bld) 68.2 % [facility] Nucleated RBC (Bld) [#/Vol] 0 10*3/uL [facility] Nucleated RBC/100 WBC (Bld) [Ratio] 0 % [facility] Platelet mean volume (Bld) [Entitic vol] 10.2 fL 9.4 - 12.4 fL [facility] Platelets (Bld) [#/Vol] 221 10*3/uL [facility] RBC (Bld) [#/Vol] 3.59 10*6/uL Low [facility] WBC (Bld) [#/Vol] 7.84 10*3/uL [facility] CBC WITH AUTO DIFFERENTIALon 02-17-2025 AUTO NRBC 0.0 % Normal [facility] Comment on above: Performed By: #### L [id number] #### LAB [address] [address] Maurice Coello M.D. [id number] AUTO NRBC ABS COUNT 0.00 K/mcL Normal 0.00-0.00 [facility] Comment on above: Performed By: #### L [id number] #### LAB [address] [address] Maurice Coello M.D. [id number] BASOPHILS ABSOLUTE COUNT 0.04 K/mcL Normal 0.00-0.30 [facility] Comment on above: Performed By: #### L [id number] #### LAB [address] [address] Maurice Coello M.D. [id number] Basophils/100 WBC (Bld) 0.5 % Normal [facility] Comment on above: Performed By: #### L [id number] #### LAB [address] [address] Maurice Coello M.D. [id number] Eosinophils (Bld) [#/Vol] 0.06 10*3/uL Normal 0.00-0.50 [facility] Comment on above: Performed By: #### L [id number] #### LAB [address] [place] [address] Maurice Coello M.D. [id number] Eosinophils/100 WBC (Bld) 0.8 % Normal [facility] Comment on above: Performed By: #### L [id number] #### LAB [address] [address] Maurice Coello M.D. [id number] Erythrocyte distribution width (RBC) [Ratio] 14.1 % Normal 11.6-14.8 [facility] Comment on above: Performed By: #### L [id number] #### LAB [address] [place] [address] Maurice Coello M.D. [id number] Hematocrit (Bld) [Volume fraction] 31.4 % Low 36.0-46.0 [facility] Comment on above: Performed By: #### L [id number] #### LAB [address] [address] Maurice Coello M.D. [id number] Hemoglobin (Bld) [Mass/Vol] 9.3 g/dL Low 12.0-16.0 [facility] Comment on above: Performed By: #### L [id number] #### LAB [address] [address] Maurice Coello M.D. [id number] IG ABSOLUTE 0.13 K/mcL Normal 0.00-0.30 [facility] Comment on above: Performed By: #### L [id number] #### LAB [address] [address] Maurice Coello M.D. [id number] IG PERCENT 1.70 % Normal [facility] Comment on above: Result Comment: The IG parameter is the percentage of metamyelocytes, myelocytes and promyelocytes. An immature granulocyte count (IG) of 1% or more suggests the possibility of infection, an IG count of 3% is very likely related to an infection. Performed By: #### L [id number] #### LAB [address] [address] Maurice Coello M.D. [id number] Lymphocytes (Bld) [#/Vol] 1.54 10*3/uL Normal 0.90-4.00 [facility] Comment on above: Performed By: #### L [id number] #### LAB [address] [address] Maurice Coello M.D. [id number] Lymphocytes/100 WBC (Bld) 19.6 % Normal [facility] Comment on above: Performed By: #### L [id number] #### LAB [address] [address] Maurice Coello M.D. [id number] MCH (RBC) [Entitic mass] 25.9 pg Low 26.0-34.0 [facility] Comment on above: Performed By: #### L [id number] #### LAB [address] [address] Maurice Coello M.D. [id number] MCV (RBC) [Entitic vol] 87.5 fL Normal 80.0-100.0 [facility] Comment on above: Performed By: #### L [id number] #### LAB [address] [address] Maurice Coello M.D. [id number] MEAN CORPUSCULAR HEMOGLOBIN CONC 29.6 g/dL Low 31.0-37.0 [facility] Comment on above: Performed By: #### L [id number] #### LAB [address] [address] Mauirce Coello M.D. [id number] Monocytes (Bld) [#/Vol] 0.72 10*3/uL Normal 0.30-0.90 [facility] Comment on above: Performed By: #### L [id number] #### LAB [address] [address] Maurice Coello M.D. [id number] Monocytes/100 WBC (Bld) 9.2 % Normal [facility] Comment on above: Performed By: #### L [id number] #### LAB [address] [address] Maurice Coello M.D. [id number] NEUTROPHILS ABSOLUTE COUNT 5.35 K/mcL Normal 1.70-7.00 [facility] Comment on above: Performed By: #### L [id number] #### LAB [address] [address] Maurice Coello M.D. [id number] Neutrophils/100 WBC (Bld) 68.2 % Normal [facility] Comment on above: Performed By: #### L [id number] #### LAB [address] [place] [address] Maurice Coello M.D. [id number] Platelet mean volume (Bld) [Entitic vol] 10.2 fL Normal 9.4-12.4 [facility] Comment on above: Performed By: #### L [id number] ####[facility] [address] [address] Maurice Coello M.D. [id number] Platelets (Bld) [#/Vol] 221 10*3/uL Normal 150-400 [facility] Comment on above: Performed By: #### L [id number] ####[facility] [address] [address] Maurice Coello M.D. [id number] RBC (Bld) [#/Vol] 3.59 10*6/uL Low 4.00-5.20 [facility] Comment on above: Performed By: #### L [id number] #### LAB [address] [address] Maurice Coello M.D. [id number] WBC (Bld) [#/Vol] 7.84 10*3/uL Normal 4.50-11.00 [facility] Comment on above: Performed By: #### L [id number] #### LAB [address] [address] Maurice Coello M.D. [id number] CPKon 02-17-2025 CPK 1606 U/L High 40-170 [facility] Comment on above: Performed By: #### L [id number] #### LAB [address] [address] Maurice Coello M.D. [id number] CPK NO MBon 02-17-2025 CK [Catalytic activity/Vol] 1606 U/L High 40 - 170 U/L [facility] Glucose (Bld) [Mass/Vol]on 0 02-17-2025 Glucose [Mass/Vol] 132 mg/dL High 65 - 99 mg/dL [facility] Interpretation and review of laboratory results Abnormal [facility] Glucose [Mass/Vol] 167 mg/dL High 65 - 99 mg/dL [facility] Interpretation and review of laboratory results Abnormal [facility] Glucose [Mass/Vol] 101 mg/dL High 65 - 99 mg/dL [facility] Interpretation and review of laboratory results Abnormal [facility] MAGNESIUM LEVELon 02-17-2025 Magnesium [Mass/Vol] 1.5 mg/dL Low 1.6-2.4 [facility] Comment on above: Performed By: #### 4 [id number] #### LAB [address] [address] Maurice Coello M.D. [id number] Magnesium Levelon 02-17-2025 Magnesium [Mass/Vol] 1.5 mg/dL Low 1.6 - 2 .4 mg/dL [facility] No Panel Informationon 02-17 Interpretation and review of laboratory results Abnormal [facility] POC GLUCOSE - RALSon 025 Glucose [Mass/Vol] 132 mg/dL High [address] [place] [address] Comment on above: Performed By: #### L [id number] #### [facility] [address] [address] Maurice Coello M.D. [id number] Glucose [Mass/Vol] 167 mg/dL High [address] [place] [address] Comment on above: Performed By: #### L [id number] #### [facility] [address] [address] Maurice Coello M.D. [id number] Glucose [Mass/Vol] 101 mg/dL High [address] [place] [address] Comment on above: Performed By: #### L [id number] #### [facility] [address] [address] Maurice Coello M.D. [id number] BASIC METABOLIC PANELon 02-04 Anion gap [Moles/Vol] 13 mmol/L Normal 10-20 [facility] [place] [facility] Comment on above: Order Comment: [facility] has implemented the eGFR calculation approach that does not have a coefficient for race that conforms to the NKF-ASN Task Force Recommendations. Performed By: #### 4 6124 #### LAB [address] [address] Maurice Coello M.D. [id number] Calcium [Mass/Vol] 8.0 mg/dL Low 8.4-10.2 [facility] Comment on above: Order Comment: [facility] has implemented the eGFR calculation approach that does not have a coefficient for race that conforms to the NKF-ASN Task Force Recommendations. Performed By: #### 4 6124 #### LAB [address] [place], [place] [address] Maurice Coello M.D. [id number] Chloride [Moles/Vol] 106 mmol/L Normal 98-108 [facility] Comment on above: Order Comment: [facility] has implemented the eGFR calculation approach that does not have a coefficient for race that conforms to the NKF-ASN Task Force Recommendations. Performed By: #### 4 6124 #### LAB [address] [address] Maurice Coello M.D. [id number] Creatinine [Mass/Vol] 1.28 mg/dL High 0.60-1.10 [facility] [place] [facility] Comment on above: Order Comment: [facility] has implemented the eGFR calculation approach that does not have a coefficient for race that conforms to the NKF-ASN Task Force Recommendations. Performed By: #### 4 6124 #### LAB [address] [address] Maurice Coello M.D. [id number] EGFR 46 mL/min/1.73 m2 Low >=60 [facility] Comment on above: Order Comment: [facility] has implemented the eGFR calculation approach that does not have a coefficient for race that conforms to the NKF-ASN Task Force Recommendations. Result Comment: Ericka mated GFR was calculated using the 2020 CKD-EPI creatinine equation. Performed By: #### 4 6124 #### LAB [address] [id number] Maurice Coello M.D. [id number] Glucose [Mass/Vol] 128 mg/dL High 65-99 [facility] Comment on above: Order Comment: [facility] has implemented the eGFR calculation approach that does not have a coefficient for race that conforms to the NKF-ASN Task Force Recommendations. Performed By: #### 4 6124 #### LAB [address] [address] Maurice Coello M.D. [id number] HCO3 (Bld) [Moles/Vol] 22 mmol/L Normal 21-32 [facility] Comment on above: Order Comment: [facility] has implemented the eGFR calculation approach that does not have a coefficient for race that conforms to the NKF-ASN Task Force Recommendations. Performed By: #### 4 6124 #### LAB [address] [address] Maurice Coello M.D. [id number] Potassium [Moles/Vol] 3.9 mmol/L Normal 3.5-5.1 [facility] [place] [facility] Comment on above: Order Comment: [facility] has implemented the eGFR calculation approach that does not have a coefficient for race that conforms to the NKF-ASN Task Force Recommendations. Performed By: #### 4 6124 #### LAB [address] [address] Maurice Coello M.D. [id number] Sodium [Moles/Vol] 137 mmol/L Normal 135-145 [facility] Comment on above: Order Comment: [facility] has implemented the eGFR calculation approach that does not have a coefficient for race that conforms to the NKF-ASN Task Force Recommendations. Performed By: #### 4 6124 #### LAB [address] [address] Maurice Coello M.D. [id number] Urea nitrogen [Mass/Vol] 15 mg/dL Normal 8-25 [facility] Comment on above: Order Comment: [facility] has implemented the eGFR calculation approach that does not have a coefficient for race that conforms to the NKF-ASN Task Force Recommendations. Performed By: #### 4 6124 #### LAB [address] [address] Maurice Coello M.D. [id number] Urea nitrogen/Creatinine [Mass ratio] 11.7 mg/mg Normal 10.0-20.0 [facility] Comment on above: Order Comment: [facility] has implemented the eGFR calculation approach that does not have a coefficient for race that conforms to the NKF-ASN Task Force Recommendations. Performed By: #### 4 6124 ####[facility] [address] [place], [place] [address] Maurice Coello M.D. [id number] Basic metabolic 2000 panelon 02-16-2025 Anion gap [Moles/Vol] 13 mmol/L 10 - 2 0 mmol/L [facility] Calcium [Mass/Vol] 8 mg/dL Low 8.4 - 10. 2 mg/dL [facility] Chloride [Moles/Vol] 106 mmol/L 98 - 10 8 mmol/L [facility] Creatinine [Mass/Vol] 1.28 mg/dL High 0.60 - 1.20 mg/dL [facility] GFR/1.73 sq M.predicted CKD-EPI (S/P/Bld) [Vol rate/Area] 46 Low - PINF [facility] Comment on above: Estimated GFR was ca lculated using the 2020 CKD-EPI creatinine equation. Glucose [Mass/Vol] 128 mg/dL High 65 - 99 mg/dL [facility]3 [Moles/Vol] 22 mmol/L 21 - 32 mmol/L [facility] Interpretation and review of laboratory results Abnormal [facility] Potassium [Moles/Vol] 3.9 mmol/L 3.5 - 5.1 mmol/L [facility] Sodium [Moles/Vol] 137 mmol/L 135 - 145 mmol/L [facility] Urea nitrogen [Mass/Vol] 15 mg/dL 8 - 25 mg/dL [facility] Urea nitrogen/Creatinine [Mass ratio] 11.7 mg/mg 10.0 - 20.0 [facility] has implemented the eGFR calculation approach that does not have a coefficient for race that conforms to the NKF-ASN Task Force Recommendations. [facility] CBC Auto Differentialon 02-04 Basophils (Bld) [#/Vol] 0.04 10*3/uL [facility] Basophils/100 WBC (Bld) 0.5 % [facility] Eosinophils (Bld) [#/Vol] 0.03 10*3/uL [facility] Eosinophils/100 WBC (Bld) 0.4 % [facility] Erythrocyte distribution width (RBC) [Entitic vol] 13.9 % 11.6 - 14.8 % [facility] Hematocrit (Bld) [Volume fraction] 31.8 % Low 36.0 - 46.0 % [facility] Hemoglobin (Bld) [Mass/Vol] 9.5 g/dL Low 12.0 - 16.0 g/dL [facility] Immature granulocytes (Bld) [#/Vol] 0.06 10*3/uL [facility] Immature granulocytes/100 WBC (Bld) 0.8 % [facility] Comment on above: The IG parameter is the percentage of metamyelocytes, myelocytes and promyelocytes. An immature granulocyte count (IG) of 1% or more suggests the possibility of infection, an IG count of 3% is very likely related to an infection. Interpretation and review of laboratory results Abnormal [facility] Lymphocytes (Bld) [#/Vol] 1.24 10*3/uL [facility] Lymphocytes/100 WBC (Bld) 15.8 % [facility] MCH (RBC) [Entitic mass] 26.2 pg 26.0 - 34.0 pg [facility] MCHC (RBC) [Mass/Vol] 29.9 g/dL Low 31.0 - 37.0 g/dL [facility] MCV (RBC) [Entitic vol] 87.6 fL 80.0 - 100.0 fL [facility] Monocytes (Bld) [#/Vol] 0.61 10*3/uL [facility] Monocytes/100 WBC (Bld) 7.8 % [facility] Neutrophils (Bld) [#/Vol] 5.85 10*3/uL [facility] Neutrophils/100 WBC (Bld) 74.7 % [facility] Nucleated RBC (Bld) [#/Vol] 0 10*3/uL [facility] Nucleated RBC/100 WBC (Bld) [Ratio] 0 % [facility] Platelet mean volume (Bld) [Entitic vol] 9.8 fL 9.4 - 12.4 fL [facility] Platelets (Bld) [#/Vol] 199 10*3/uL [facility] RBC (Bld) [#/Vol] 3.63 10*6/uL Low [facility] WBC (Bld) [#/Vol] 7.83 10*3/uL [facility] CBC WITH AUTO DIFFERENTIALon 02-16-2025 AUTO NRBC 0.0 % Normal [facility] Comment on above: Performed By: #### L [id number] #### LAB [address] [address] Maurice Coello M.D. [id number] AUTO NRBC ABS COUNT 0.00 K/mcL Normal 0.00-0.00 [facility] Comment on above: Performed By: #### L [id number] #### LAB [address] [address] Maurice Coello M.D. [id number] BASOPHILS ABSOLUTE COUNT 0.04 K/mcL Normal 0.00-0.30 [facility] Comment on above: Performed By: #### L [id number] #### LAB [address] [address] Maurice Coello M.D. [id number] Basophils/100 WBC (Bld) 0.5 % Normal [facility] Comment on above: Performed By: #### L [id number] #### LAB [address] [address] Maurice Coello M.D. [id number] Eosinophils (Bld) [#/Vol] 0.03 10*3/uL Normal 0.00-0.50 [facility] Comment on above: Performed By: #### L [id number] #### LAB [address] [address] Maurice Coello M.D. [id number] Eosinophils/100 WBC (Bld) 0.4 % Normal [facility] Comment on above: Performed By: #### L [id number] #### LAB [address] [address] Maurice Coello M.D. [id number] Erythrocyte distribution width (RBC) [Ratio] 13.9 % Normal 11.6-14.8 [facility] Comment on above: Performed By: #### L [id number] #### LAB [address] [place] [address] Maurice Coello M.D. [id number] Hematocrit (Bld) [Volume fraction] 31.8 % Low 36.0-46.0 [facility] Comment on above: Performed By: #### L [id number] #### LAB [address] [address] Maurice Coello M.D. [id number] Hemoglobin (Bld) [Mass/Vol] 9.5 g/dL Low 12.0-16.0 [facility] Comment on above: Performed By: #### L [id number] #### LAB [address] [address] Maurice Coello M.D. [id number] IG ABSOLUTE 0.06 K/mcL Normal 0.00-0.30 [facility] Comment on above: Performed By: #### L [id number] #### LAB [address] [address] Maurice Coello M.D. [id number] IG PERCENT 0.80 % Normal [facility] Comment on above: Result Comment: The IG parameter is the percentage of metamyelocytes, myelocytes and promyelocytes. An immature granulocyte count (IG) of 1% or more suggests the possibility of infection, an IG count of 3% is very likely related to an infection. Performed By: #### L [id number] #### LAB [address] [place] [address] Maurice Coello M.D. [id number] Lymphocytes (Bld) [#/Vol] 1.24 10*3/uL Normal 0.90-4.00 [facility] Comment on above: Performed By: #### L [id number] #### LAB [address] [address] Maurice Coello M.D. [id number] Lymphocytes/100 WBC (Bld) 15.8 % Normal [facility] Comment on above: Performed By: #### L [id number] #### LAB [address] [place] [address] Maurice Coello M.D. [id number] MCH (RBC) [Entitic mass] 26.2 pg Normal 26.0-34.0 [facility] Comment on above: Performed By: #### L [id number] #### LAB [address] [address] Maurice Coello M.D. [id number] MCV (RBC) [Entitic vol] 87.6 fL Normal 80.0-100.0 [facility] Comment on above: Performed By: #### L [id number] #### LAB [address] [address] Maurice Coello M.D. [id number] MEAN CORPUSCULAR HEMOGLOBIN CONC 29.9 g/dL Low 31.0-37.0 [facility] Comment on above: Performed By: #### L [id number] #### LAB [address] [address] Maurice Coello M.D. [id number] Monocytes (Bld) [#/Vol] 0.61 10*3/uL Normal 0.30-0.90 [facility] Comment on above: Performed By: #### L [id number] #### LAB [address] [address] Maurice Coello M.D. [id number] Monocytes/100 WBC (Bld) 7.8 % Normal [facility] Comment on above: Performed By: #### L [id number] #### LAB [address] [address] Maurice Coello M.D. [id number] NEUTROPHILS ABSOLUTE COUNT 5.85 K/mcL Normal 1.70-7.00 [facility] Comment on above: Performed By: #### L [id number] #### LAB [address] [address] Maurice Coello M.D. [id number] Neutrophils/100 WBC (Bld) 74.7 % Normal [facility] Comment on above: Performed By: #### L [id number] #### LAB [address] [address] Maurice Coello M.D. [id number] Platelet mean volume (Bld) [Entitic vol] 9.8 fL Normal 9.4-12.4 [facility] Comment on above: Performed By: #### L [id number] ####[facility] LAB [address] [address] Maurice Coello M.D. [id number] Platelets (Bld) [#/Vol] 199 10*3/uL Normal 150-400 [facility] Comment on above: Performed By: #### L [id number] ####[facility] LAB [address] [address] Maurice Coello M.D. [id number] RBC (Bld) [#/Vol] 3.63 10*6/uL Low 4.00-5.20 [facility] Comment on above: Performed By: #### L [id number] ####[facility] LAB [address] [address] Maurice Coello M.D. [id number] WBC (Bld) [#/Vol] 7.83 10*3/uL Normal 4.50-11.00 [facility] Comment on above: Performed By: #### L [id number] #### LAB [address] [address] Maurice Coello M.D. [id number] CK [Catalytic activity/Vol]o n 02-16-2025 Interpretation and review of laboratory results Abnormal [facility] Interpretation and review of laboratory results Abnormal [facility] CPKon 02-16-2025 CPK 4535 U/L High 40-170 [facility] Comment on above: Performed By: #### 4 [id number] #### [facility] LAB [address] [address] Maurice Coello M.D. [id number] CPK 5003 U/L High 40-170 [facility] Comment on above: Performed By: #### 4 [id number] ####[facility] LAB [address] [address] Maurice Coello M.D. [id number] CPK NO MBon 02-16-2025 CK [Catalytic activity/Vol] 4535 U/L High 40 - 170 U/L [facility] CK [Catalytic activity/Vol] 5003 U/L High 40 - 170 U/L [facility] Glucose (Bld) [Mass/Vol]on 0 02-16-2025 Glucose [Mass/Vol] 170 mg/dL High 65 - 99 mg/dL [facility] Interpretation and review of laboratory results Abnormal [facility] Glucose [Mass/Vol] 119 mg/dL High 65 - 99 mg/dL [facility]al Interpretation and review of laboratory results Abnormal [facility] Glucose [Mass/Vol] 109 mg/dL High 65 - 99 mg/dL [facility] Interpretation and review of laboratory results Abnormal [facility] Glucose [Mass/Vol] 126 mg/dL High 65 - 99 mg/dL [facility] Interpretation and review of laboratory results Abnormal [facility] MAGNESIUM LEVELon 02-16-2025 Magnesium [Mass/Vol] 1.6 mg/dL Normal 1.6-2.4 [facility] Comment on above: Performed By: #### 4 [id number] #### LAB [address] [place], [place] [address] Maurice Coello M.D. [id number] Magnesium Levelon 02-16-2025 Magnesium [Mass/Vol] 1.6 mg/dL 1.6 - 2 .4 mg/dL [facility] Magnesium [Mass/Vol]on 02-16 Interpretation and review of laboratory results Normal [facility] NT PRO BNPon 02-16-2025 Natriuretic peptide B (Bld) [Mass/Vol] 3770 pg/mL High 0-300 [facility] Comment on above: Order Comment: [facility] has implemented the eGFR calculation approach that does not have a coefficient for race that conforms to the NKF-ASN Task Force Recommendations. Performed By: #### 4 [id number] #### LAB [address] [place], [place] [address] Maurice Coello M.D. [id number] NT Pro BNPon 02-16-2025 Natriuretic peptide.B prohormone N-Terminal [Mass/Vol] 3770 pg/mL High 0 - 300 pg/mL [facility] Natriuretic peptide.B prohor curly N-Terminal [Mass/Vol]on 02-16-2025 Interpretation and review of laboratory results Abnormal [facility] Pride Study Cut-offs Rule In: < /= 50 Years >450 pg/mL 51 Years - 75 Years >900 pg/mL 76 Years - 99 Years >1800 pg/mL Rule Out: All patients <300 pg/mL [facility] POC GLUCOSE - Lexa 025 Glucose [Mass/Vol] 170 mg/dL [address] Comment on above: Performed By: #### L [id number] #### LAB [address] [address] Maurice Coello M.D. [id number] Glucose [Mass/Vol] 119 mg/dL [address] Comment on above: Performed By: #### L [id number] #### [facility] LAB [address] [address] Maurice Coello M.D. [id number] Glucose [Mass/Vol] 109 mg/dL [address] Comment on above: Performed By: #### L [id number] #### LAB [address] [address] Maurice Coello M.D. [id number] Glucose [Mass/Vol] 126 mg/dL [address] Comment on above: Performed By: #### L [id number] #### LAB [address] [address] Maurice Coello M.D. [id number] Repeat EKGon 02-16-2025 Atrial Rate 75 BPM [facility] P [place] 74 degrees [facility] P-R Interval 136 ms [facility] Q-T Interval 424 ms [facility] QRS Duration 104 ms [facility] QTC Calculation (Bezet) 473 ms O [facility] R [place] 20 degrees [facility] T [place] -116 degrees [facility] Ventricular Rate 75 BPM [facility] th Normal sinus rhythm ST & T wave abnormality, consider inferior ischemia ST & T wave abnormality, consider anterolateral ischemia Prolonged QT Abnormal ECG ECG Cart Interpretation see physician note for interpretation. Confirmed by Yajaira Hernandez ([id number]) on 02/16/2025 5:24:09 PM MUSE [facility] TROPONIN (ONCE)on 02-16-2025 BASELINE TROPONIN T NG/L 40 ng/L Off scale high <=14 [facility] Comment on above: Performed By: #### L [id number] ####[facility] LAB [address] [place], [place] [address] Maurice Coello M.D. [id number] TROPONIN T INTERPRETATION Possible acute cardiac injury. Normal [facility] Comment on above: Performed By: #### L [id number] ####[facility] LAB [address] [place], [place] [address] Maurice Coello M.D. [id number] Troponin (Once)on 02-16-2025 Interpretation and review of laboratory results Abnormal [facility] Troponin T 40 ng/L Critically high NINF - 14 ng/L [facility] Troponin T Interpretation Possible acute cardiac injury. [facility] XR CHEST PA/APon 02-16-2025 XR CHEST PA/AP EXAMINATION: XR CHEST PA/AP HISTORY: ORDERING SYSTEM PROVIDED HISTORY: Shortness of breath, TECHNOLOGIST PROVIDED HISTORY: Illness/Other Reason for exam: sob Cancer History: unknown Surgery, RadiationHistory: cholecystectomy, hysterectomy, oophrectomy, left knee replacement Encounter Type: Ongoing Additional signs and symptoms: contact iso;ation ORDERING SYSTEM PROVIDED DIAGNOSIS CODES: J96.20 Acute on chronic respiratory failure, unspecified whether with hypoxia or hypercapnia ([facility]) I50.9 Acute on chronic congestive heart failure, unspecified heart failure type ([facility]) R65.10 SIRS (systemic inflammatory response syndrome) ([facility]) J18.9 Pneumonia N18.9 CKD (chronic kidney disease) J44.1 Acute exacerbation of chronic obstructive pulmonary disease (COPD) ([facility]) 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 Allowing for AP portable technique, the heart size is borderline. There are calcified right upper lobe pulmonary nodules. There is no focal lung consolidation. There is no pneumothorax or pleural effusion. IMPRESSION: Old granulomatous disease. Borderline heart size. No acute consolidation. Workstation ID: [id number] Dictated by: RIVAS KHAN on [place] Feb 16, 2025 4:39:53 PM EDT Transcribed by: RIVAS KHAN on [place] Feb 16, 2025 4:39:53 PM EDT Finalized by: RIVAS KHAN on [place] Feb 16, 2025 4:39:53 PM EDT [facility] Comment on above: Order Comment: Resul ts of PCR testing for stool pathogens must be taken into clinical context when making treatment decisions. Most gastrointestinal infections due to common bacterial and viral causes are self-limited in nature and do not require antimicrobial therapy. The use of antimicrobial therapy must be carefully weighed against unintended and potentially harmful consequences. The role of antimicrobial therapy depends on the implicated pathogen. In general, antimicrobial agents are only used to treat parasitic infections as well as select bacterial infections. XR Chest PA and Abdomen APon 02-16-2025 Old granulomatous disease. Borderline heart size. No acute consolidation. Workstation ID: [id number] [place] EXAMINATION: XR CHEST PA/AP HISTORY: ORDERING SYSTEM PROVIDED HISTORY: Shortness of breath, TECHNOLOGIST PROVIDED HISTORY: Illness/Other Reason for exam: sob Cancer History: unknown Surgery, RadiationHistory: cholecystectomy, hysterectomy, oophrectomy, left knee replacement Encounter Type: Ongoing Additional signs and symptoms: contact iso;athowsimple ORDERING SYSTEM PROVIDED DIAGNOSIS CODES: J96.20 Acute on chronic respiratory failure, unspecified whether with hypoxia or hypercapnia ([facility]) I50.9 Acute on chronic congestive heart failure, unspecified heart failure type ([facility]) R65.10 SIRS (systemic inflammatory response syndrome) ([facility]) J18.9 Pneumonia N18.9 CKD (chronic kidney disease) J44.1 Acute exacerbation of chronic obstructive pulmonary disease (COPD) ([facility]) 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 Allowing for AP portable technique, the heart size is borderline. There are calcified right upper lobe pulmonary nodules. There is no focal lung consolidation. There is no pneumothorax or pleural effusion. [place] Rivas Khan MD - 02/16/2025 EXAMINATION: XR CHEST PA/AP HISTORY: ORDERING SYSTEM PROVIDED HISTORY: Shortness of breath, TECHNOLOGIST PROVIDED HISTORY: Illness/Other Reason for exam: sob Cancer History: unknown Surgery, RadiationHistory: cholecystectomy, hysterectomy, oophrectomy, left knee replacement Encounter Type: Ongoing Additional signs and symptoms: contact iso;athowsimple ORDERING SYSTEM PROVIDED DIAGNOSIS CODES: J96.20 Acute on chronic respiratory failure, unspecified whether with hypoxia or hypercapnia ([facility]) I50.9 Acute on chronic congestive heart failure, unspecified heart failure type ([facility]) R65.10 SIRS (systemic inflammatory response syndrome) ([facility]) J18.9 Pneumonia N18.9 CKD (chronic kidney disease) J44.1 Acute exacerbation of chronic obstructive pulmonary disease (COPD) ([facility]) 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 Allowing for AP portable technique, the heart size is borderline. There are calcified right upper lobe pulmonary nodules. There is no focal lung consolidation. There is no pneumothorax or pleural effusion. IMPRESSION: Old granulomatous disease. Borderline heart size. No acute consolidation. Workstation ID: [id number] [facility] Radiology Study observation (narrative) [facility] XR Chest PA and Abdomen APOr dered By: Rivas Khan on 02-16-2025 [facility] Work Phone: BASIC METABOLIC PANELon 02-04 Anion gap [Moles/Vol] 15 mmol/L Normal 10-20 [facility] [place] [facility] Comment on above: Order Comment: [facility] has implemented the eGFR calculation approach that does not have a coefficient for race that conforms to the NKF-ASN Task Force Recommendations. Performed By: #### 4 [id number] #### LAB [address] [place], [place] [address] Maurice Coello M.D. [id number] Calcium [Mass/Vol] 7.9 mg/dL Low 8.4-10.2 [facility] Comment on above: Order Comment: [facility] has implemented the eGFR calculation approach that does not have a coefficient for race that conforms to the NKF-ASN Task Force Recommendations. Performed By: #### 4 6124 #### LAB [address] [place], [place] [address] Maurice Coello M.D. [id number] Chloride [Moles/Vol] 98 mmol/L Normal 98-108 [facility] Comment on above: Order Comment: [facility] has implemented the eGFR calculation approach that does not have a coefficient for race that conforms to the NKF-ASN Task Force Recommendations. Performed By: #### 4 6158 #### LAB [address] [address] Maurice Coello M.D. [id number] Creatinine [Mass/Vol] 1.54 mg/dL High 0.60-1.10 [facility] [place] [facility] Comment on above: Order Comment: [facility] has implemented the eGFR calculation approach that does not have a coefficient for race that conforms to the NKF-ASN Task Force Recommendations. Performed By: #### 4 6124 #### LAB [address] [address] Maurice Coello M.D. [id number] EGFR 37 mL/min/1.73 m2 Low >=60 [facility] Comment on above: Order Comment: [facility] has implemented the eGFR calculation approach that does not have a coefficient for race that conforms to the NKF-ASN Task Force Recommendations. Result Comment: Ericka mated GFR was calculated using the 2020 CKD-EPI creatinine equation. Performed By: #### 4 6124 #### LAB [address] [address] Maurice Coello M.D. [id number] Glucose [Mass/Vol] 137 mg/dL High 65-99 [facility] Comment on above: Order Comment: [facility] has implemented the eGFR calculation approach that does not have a coefficient for race that conforms to the NKF-ASN Task Force Recommendations. Performed By: #### 4 6124 #### LAB [address] [address] Maurice Coello M.D. [id number] HCO3 (Bld) [Moles/Vol] 24 mmol/L Normal 21-32 [facility] Comment on above: Order Comment: [facility] has implemented the eGFR calculation approach that does not have a coefficient for race that conforms to the NKF-ASN Task Force Recommendations. Performed By: #### 4 6124 #### [facility] LAB [address] [address] Maurice Coello M.D. [id number] Potassium [Moles/Vol] 3.7 mmol/L Normal 3.5-5.1 [facility] [place] [facility] Comment on above: Order Comment: [facility] has implemented the eGFR calculation approach that does not have a coefficient for race that conforms to the NKF-ASN Task Force Recommendations. Performed By: #### 4 6124 #### LAB [address] [place], [place] [address] Maurice Coello M.D. [id number] Sodium [Moles/Vol] 133 mmol/L Low 135-145 [facility] Comment on above: Order Comment: [facility] has implemented the eGFR calculation approach that does not have a coefficient for race that conforms to the NKF-ASN Task Force Recommendations. Performed By: #### 4 6124 #### LAB [address] [address] Maurice Coello M.D. [id number] Urea nitrogen [Mass/Vol] 23 mg/dL Normal 8-25 [facility] Comment on above: Order Comment: [facility] has implemented the eGFR calculation approach that does not have a coefficient for race that conforms to the NKF-ASN Task Force Recommendations. Performed By: #### 4 6124 #### LAB [address] [address] Maurice Coello M.D. [id number] Urea nitrogen/Creatinine [Mass ratio] 14.9 mg/mg Normal 10.0-20.0 [facility] Comment on above: Order Comment: [facility] has implemented the eGFR calculation approach that does not have a coefficient for race that conforms to the NKF-ASN Task Force Recommendations. Performed By: #### 4 6124 #### LAB [address] [address] Maurice Coello M.D. [id number] Bacteria identified Aer cx N om (Unsp spec)Ordered By: Amalai Kendall on 02-15-2025 [facility] Basic metabolic 2000 panelOr dered By: Alea Joseph on 02-15-2025 Anion gap [Moles/Vol] 15 mmol/L 10 - 2 0 mmol/L [facility] Calcium [Mass/Vol] 7.9 mg/dL Low 8.4 - 10. 2 mg/dL [facility] Chloride [Moles/Vol] 98 mmol/L 98 - 10 8 mmol/L [facility] Creatinine [Mass/Vol] 1.54 mg/dL High 0.60 - 1.20 mg/dL [facility] GFR/1.73 sq M.predicted CKD-EPI (S/P/Bld) [Vol rate/Area] 37 Low - PINF [facility] Comment on above: Estimated GFR was ca lculated using the 2020 CKD-EPI creatinine equation. Glucose [Mass/Vol] 137 mg/dL High 65 - 99 mg/dL [facility] HCO3 [Moles/Vol] 24 mmol/L 21 - 32 mmol/L [facility] Interpretation and review of laboratory results Abnormal [facility] Potassium [Moles/Vol] 3.7 mmol/L 3.5 - 5.1 mmol/L [facility] Sodium [Moles/Vol] 133 mmol/L Low 135 - 145 mmol/L [facility] Urea nitrogen [Mass/Vol] 23 mg/dL 8 - 25 mg/dL [facility] Urea nitrogen/Creatinine [Mass ratio] 14.9 mg/mg 10.0 - 20.0 [facility] has implemented the eGFR calculation approach that does not have a coefficient for race that conforms to the NKF-ASN Task Force Recommendations. [facility] CBC Auto Differentialon 02-04 Basophils (Bld) [#/Vol] 0.02 10*3/uL [facility] Basophils/100 WBC (Bld) 0.2 % [facility] Eosinophils (Bld) [#/Vol] 0.05 10*3/uL [facility] Eosinophils/100 WBC (Bld) 0.5 % [facility] Erythrocyte distribution width (RBC) [Entitic vol] 13.8 % 11.6 - 14.8 % [facility] Hematocrit (Bld) [Volume fraction] 31.4 % Low 36.0 - 46.0 % [facility] Hemoglobin (Bld) [Mass/Vol] 9.3 g/dL Low 12.0 - 16.0 g/dL [facility] Immature granulocytes (Bld) [#/Vol] 0.06 10*3/uL [facility] Immature granulocytes/100 WBC (Bld) 0.6 % [facility] Comment on above: The IG parameter is the percentage of metamyelocytes, myelocytes and promyelocytes. An immature granulocyte count (IG) of 1% or more suggests the possibility of infection, an IG count of 3% is very likely related to an infection. Interpretation and review of laboratory results Abnormal [facility] Lymphocytes (Bld) [#/Vol] 1.33 10*3/uL [facility] Lymphocytes/100 WBC (Bld) 12.3 % [facility] MCH (RBC) [Entitic mass] 25.8 pg Low 26.0 - 34.0 pg [facility] MCHC (RBC) [Mass/Vol] 29.6 g/dL Low 31.0 - 37.0 g/dL [facility] MCV (RBC) [Entitic vol] 87.2 fL 80.0 - 100.0 fL [facility] Monocytes (Bld) [#/Vol] 0.77 10*3/uL [facility] Monocytes/100 WBC (Bld) 7.1 % [facility] Neutrophils (Bld) [#/Vol] 8.55 10*3/uL High [facility] Neutrophils/100 WBC (Bld) 79.3 % [facility] Nucleated RBC (Bld) [#/Vol] 0 10*3/uL [facility] Nucleated RBC/100 WBC (Bld) [Ratio] 0 % [facility] Platelet mean volume (Bld) [Entitic vol] 10.1 fL 9.4 - 12.4 fL [facility] Platelets (Bld) [#/Vol] 233 10*3/uL [facility] RBC (Bld) [#/Vol] 3.6 10*6/uL Low [facility] alth WBC (Bld) [#/Vol] 10.78 10*3/uL [facility] CBC WITH AUTO DIFFERENTIALon 02-15-2025 AUTO NRBC 0.0 % Normal [facility] Comment on above: Performed By: #### L [id number] ####[facility] LAB [address] [place], [place] [address] Maurice Coello M.D. [id number] AUTO NRBC ABS COUNT 0.00 K/mcL Normal 0.00-0.00 [facility] Comment on above: Performed By: #### L [id number] ####[facility] LAB [address] [place], [place] [address] Maurice Coello M.D. [id number] BASOPHILS ABSOLUTE COUNT 0.02 K/mcL Normal 0.00-0.30 [facility] Comment on above: Performed By: #### L [id number] #### LAB [address] [address] Maurice Coello M.D. [id number] Basophils/100 WBC (Bld) 0.2 % Normal [facility] Comment on above: Performed By: #### L [id number] #### LAB [address] [address] Maurice Coello M.D. [id number] Eosinophils (Bld) [#/Vol] 0.05 10*3/uL Normal 0.00-0.50 [facility] Comment on above: Performed By: #### L [id number] #### LAB [address] [address] Maurice Coello M.D. [id number] Eosinophils/100 WBC (Bld) 0.5 % Normal [facility] Comment on above: Performed By: #### L [id number] #### LAB [address] [address] Maurice Coello M.D. [id number] Erythrocyte distribution width (RBC) [Ratio] 13.8 % Normal 11.6-14.8 [facility] Comment on above: Performed By: #### L [id number] #### LAB [address] [address] Maurice Coello M.D. [id number] Hematocrit (Bld) [Volume fraction] 31.4 % Low 36.0-46.0 [facility] Comment on above: Performed By: #### L [id number] #### LAB [address] [address] Maurice Coello M.D. [id number] Hemoglobin (Bld) [Mass/Vol] 9.3 g/dL Low 12.0-16.0 [facility] Comment on above: Performed By: #### L [id number] #### LAB [address] [address] Maurice Coello M.D. [id number] IG ABSOLUTE 0.06 K/mcL Normal 0.00-0.30 [facility] Comment on above: Performed By: #### L [id number] #### LAB [address] [place] [address] Maurice Coello M.D. [id number] IG PERCENT 0.60 % [facility] Comment on above: Result Comment: The IG parameter is the percentage of metamyelocytes, myelocytes and promyelocytes. An immature granulocyte count (IG) of 1% or more suggests the possibility of infection, an IG count of 3% is very likely related to an infection. Performed By: #### L [id number] #### LAB [address] [place] [address] Maurice Coello M.D. [id number] Lymphocytes (Bld) [#/Vol] 1.33 10*3/uL Normal 0.90-4.00 [facility] Comment on above: Performed By: #### L [id number] #### LAB [address] [place] [address] Maurice Coello M.D. [id number] Lymphocytes/100 WBC (Bld) 12.3 % [facility] Comment on above: Performed By: #### L [id number] #### LAB [address] [place] [address] Maurice Coello M.D. [id number] MCH (RBC) [Entitic mass] 25.8 pg Low 26.0-34.0 [facility] Comment on above: Performed By: #### L [id number] #### LAB [address] [address] Maurice Coello M.D. [id number] MCV (RBC) [Entitic vol] 87.2 fL Normal 80.0-100.0 [facility] Comment on above: Performed By: #### L [id number] #### LAB [address] [address] Maurice Coello M.D. [id number] MEAN CORPUSCULAR HEMOGLOBIN CONC 29.6 g/dL Low 31.0-37.0 [facility] Comment on above: Performed By: #### L [id number] ####[facility] LAB [address] [address] Maurice Coello M.D. [id number] Monocytes (Bld) [#/Vol] 0.77 10*3/uL Normal 0.30-0.90 [facility] Comment on above: Performed By: #### L [id number] #### LAB [address] [address] Maurice Coello M.D. [id number] Monocytes/100 WBC (Bld) 7.1 % Normal [facility] Comment on above: Performed By: #### L [id number] #### LAB [address] [address] Maurice Coello M.D. [id number] NEUTROPHILS ABSOLUTE COUNT 8.55 K/mcL High 1.70-7.00 [facility] Comment on above: Performed By: #### L [id number] #### LAB [address] [address] Maurice Coello M.D. [id number] Neutrophils/100 WBC (Bld) 79.3 % Normal [facility] Comment on above: Performed By: #### L [id number] #### LAB [address] [address] Maurice Coello M.D. [id number] Platelet mean volume (Bld) [Entitic vol] 10.1 fL Normal 9.4-12.4 [facility] Comment on above: Performed By: #### L [id number] ####[facility] LAB [address] [address] Maurice Coello M.D. [id number] Platelets (Bld) [#/Vol] 233 10*3/uL Normal 150-400 [facility] Comment on above: Performed By: #### L [id number] #### LAB [address] [place] [address] Maurice Coello M.D. [id number] RBC (Bld) [#/Vol] 3.60 10*6/uL Low 4.00-5.20 [facility] Comment on above: Performed By: #### L [id number] #### LAB [address] [place], [place] [address] Maurice Coello M.D. [id number] WBC (Bld) [#/Vol] 10.78 10*3/uL Normal 4.50-11.00 [facility] Comment on above: Performed By: #### L [id number] #### LAB [address] [address] Maurice Coello M.D. [id number] CK [Catalytic activity/Vol]o n 02-15-2025 Interpretation and review of laboratory results Abnormal [facility] CPKon 02-15-2025 CPK 83367 U/L High 40-170 [facility] Comment on above: Performed By: #### 4 [id number] #### LAB [address] [place], [place] [address] Maurice Coello M.D. [id number] CPK NO MBon 02-15-2025 CK [Catalytic activity/Vol] 03862 U/L High 40 - 170 U/L [facility] EKG 12-leadon 02-15-2025 Atrial Rate 94 BPM [facility] P [place] 71 degrees [facility] P-R Interval 144 ms [facility] Q-T Interval 330 ms [facility] QRS Duration 90 ms [facility] QTC Calculation (Bezet) 412 ms [facility] R [place] -12 degrees [facility] T [place] 63 degrees [facility] Ventricular Rate 94 BPM [facility] Normal sinus rhythm Normal ECG ECG Cart Interpretation see physician note for interpretation. Confirmed by Yajaira Hernandez ([id number]) on 02/15/2025 12:15:20 PM MUSE [facility] Gastrointestinal pathogens D NA and RNA panel CATRINA+non-probe (Stl)Ordered By: Donna Melendez on 02-15-2025 Adenovirus 40+41 DNA CATRINA+non-probe Ql (Stl) Not detected Not Detected [facility] Astrovirus subtypes 1-8 RNA CATRINA+non-probe Ql (Stl) Not detected Not Detected [facility] C. cayetanensis DNA CATRINA+non-probe Ql (Stl) Not detected Not Detected [facility] C. coli+jejuni+upsaliensis DNA CATRINA+non-probe Ql (Stl) Not detected Not Detected [facility] C. difficile toxin A+B tcdA+tcdB genes CATRINA+non-probe Ql (Stl) Not detected Not Detected [facility] Cryptosporidium sp DNA CATRINA+non-probe Ql (Stl) Not detected Not Detected [facility] E. coli enteroaggregative Clayton plasmid aggR+aatA genes CATRINA+non-probe Ql (Stl) Detected Abnormal Not Detected [facility] Comment on above: EPEC is associated w ith acute or prolonged watery diarrhea with vomiting and fever. EPEC carriage may also be asymptomatic. Treatment with antibiotics is not recommended. E. coli enteropathogenic eae gene CATRINA+non-probe Ql (Stl) Not detected Not Detected [facility] E. coli enterotoxigenic ltA+st1a+st1b genes CATRINA+non-probe Ql (Stl) Not detected Not Detected [facility] E. coli stx1+stx2 genes CATRINA+non-probe Ql (Stl) Not detected Not Detected [facility] E. histolytica DNA CATRINA+non-probe Ql (Stl) Not detected Not Detected [facility] G. lamblia DNA CATRINA+non-probe Ql (Stl) Not detected Not Detected [facility] Interpretation and review of laboratory results Abnormal [facility] Norovirus genogroup I+II RNA CATRINA+non-probe Ql (Stl) Detected Abnormal Not Detected [facility] Comment on above: Highly contagious; N orovirus cause moderate to severe gastroenteritis consisting primarily of nausea, vomiting, and diarrhea accompanied by fever. Symptoms of infection generally last 24-48 hours and the illness is self-limiting. Norovirus infections are the leading cause of foodborne gastroenteritis in the . Antibiotic and antiviral therapy is not indicated. NOTE: Norovirus is highly contagious and inpatients should be in contact plus isolation. Outpatients should use robust hand-washing and contact precautions until symptoms subside. P. shigelloides DNA CATRINA+non-probe Ql (Stl) Not detected Not Detected [facility] Rotavirus A RNA CATRINA+non-probe Ql (Stl) Not detected Not Detected [facility] S. enterica+bongori DNA CATRINA+non-probe Ql (Stl) Not detected Not Detected [facility] Sapovirus genogroups I+II+IV+V RNA CATRINA+non-probe Ql (Stl) Not detected Not Detected [facility] Shigella species+EIEC invasion plasmid antigen H ipaH gene CATRINA+non-probe Ql (Stl) Not detected Not Detected [facility] V. cholerae DNA CATRINA+non-probe Ql (Stl) Not detected Not Detected [facility] V. cholerae+parahaemolytic us+vulnificus DNA CATRINA+non-probe Ql (Stl) Not detected Not Detected [facility] Y. enterocolitica DNA CATRINA+non-probe Ql (Stl) Not detected [facility] Results of PCR testi ng for stool pathogens must be taken into clinical context when making treatment decisions. Most gastrointestinal infections due to common bacterial and viral causes are self-limited in nature and do not require antimicrobial therapy. The use of antimicrobial therapy must be carefully weighed against unintended and potentially harmful consequences. The role of antimicrobial therapy depends on the implicated pathogen. In general, antimicrobial agents are only used to treat parasitic infections as well as select bacterial infections. [facility] Glucose (Bld) [Mass/Vol]on 0 02-15-2025 Glucose [Mass/Vol] 172 mg/dL High 65 - 99 mg/dL [facility] Interpretation and review of laboratory results Abnormal [facility] Glucose [Mass/Vol] 173 mg/dL High 65 - 99 mg/dL [facility] Interpretation and review of laboratory results Abnormal [facility] Glucose [Mass/Vol] 155 mg/dL High 65 - 99 mg/dL [facility] Interpretation and review of laboratory results Abnormal [facility] Glucose [Mass/Vol] 140 mg/dL High 65 - 99 mg/dL [facility] Interpretation and review of laboratory results Abnormal [facility] Glucose [Mass/Vol] 211 mg/dL High 65 - 99 mg/dL [facility] Interpretation and review of laboratory results Abnormal [facility] MAGNESIUM LEVELon 02-15-2025 Magnesium [Mass/Vol] 1.7 mg/dL Normal 1.6-2.4 [facility] Comment on above: Performed By: #### 4 [id number] ####[facility] LAB [address] [place] [address] Maurice Coello M.D. [id number] Magnesium Levelon 02-15-2025 Magnesium [Mass/Vol] 1.7 mg/dL 1.6 - 2 .4 mg/dL [facility] Magnesium [Mass/Vol]on 02-15 Interpretation and review of laboratory results Normal [facility] No Panel InformationOrdered By: Alea Joseph on 02-15-2025 [facility] POC GLUCOSE - Lexa 025 Glucose [Mass/Vol] 172 mg/dL High [address] [place] [address] Comment on above: Performed By: #### L [id number] #### [facility] LAB [address] [address] Maurice Coello M.D. [id number] Glucose [Mass/Vol] 173 mg/dL High [address] [place] [address] Comment on above: Performed By: #### L [id number] #### [facility] LAB [address] [address] Maurice Coello M.D. [id number] Glucose [Mass/Vol] 155 mg/dL [address] Comment on above: Performed By: #### L [id number] #### [facility] LAB [address] [address] Maurice Coello M.D. [id number] Glucose [Mass/Vol] 140 mg/dL [address] Comment on above: Performed By: #### L [id number] #### MH LAB [address] [place] [address] Maurice Coello M.D. [id number] Glucose [Mass/Vol] 211 mg/dL [address] Comment on above: Performed By: #### L [id number] #### LAB [address] [place] [address] Maruice Coello M.D. [id number] STOOL/GI PCR PANELon 025 STOOL/GI PCR PANEL CAMPYLOBACTER SPECIE S Not Detected CLOSTRIDIUM DIFFICILE TOXIN A/B Not Detected PLESIOMONAS SHIGELLOIDES Not Detected SALMONELLA SPECIES Not Detected VIBRIO SPECIES Not Detected VIBRIO CHLOREAE Not Detected YERSINIA ENTEROCOLITICA Not Detected ENTEROAGGREGATIVE E. COLI (EAEC) Not Detected ENTEROPATHOGENIC E. COLI (EPEC) DETECTED EPEC is associated with acute or prolonged watery diarrhea with vomiting and fever. EPEC carriage may also be asymptomatic. Treatment with antibiotics is not recommended. ENTEROTOXIGENIC E. COLI (ETEC) Not Detected SHIGA-LIKE TOXIN-PRODUCING E. COLI (STEC) 1/2 Not Detected SHIGELLA/ENTEROINVASIVE E. COLI (EIEC) Not Detected CRYPTOSPORIDIUM SPECIES Not Detected CYCLOSPORA CAYETANENSIS Not Detected ENTAMOEBA HISTOLYTICA Not Detected GIARDIA LAMBLIA Not Detected ADENOVIRUS F 40/41 Not Detected ASTROVIRUS Not Detected NOROVIRUS GI/GII DETECTED Highly contagious; Norovirus cause moderate to severe gastroenteritis consisting primarily of nausea, vomiting, and diarrhea accompanied by fever. Symptoms of infection generally last 24-48 hours and the illness is self-limiting. Norovirus infections are the leading cause of foodborne gastroenteritis in the . Antibiotic and antiviral therapy is not indicated. NOTE: Norovirus is highly contagious and inpatients should be in contact plus isolation. Outpatients should use robust hand-washing and contact precautions until symptoms subside. ROTAVIRUS A Not Detected SAPOVIRUS Not Detected Abnormal Not Detected [facility] Comment on above: Order Comment: Resul ts of PCR testing for stool pathogens must be taken into clinical context when making treatment decisions. Most gastrointestinal infections due to common bacterial and viral causes are self-limited in nature and do not require antimicrobial therapy. The use of antimicrobial therapy must be carefully weighed against unintended and potentially harmful consequences. The role of antimicrobial therapy depends on the implicated pathogen. In general, antimicrobial agents are only used to treat parasitic infections as well as select bacterial infections. Performed By: #### L [id number] #### [facility] LAB [address] [place], [place] [address] Maurice Coello M.D. [id number] Urine Aerobic CultureOrdered By: Amalia Kendall on 02-15-2025 Bacteria identified Aer cx Nom (Unsp spec) < 10,000 CFU/mL of normal urogenital microbiota [facility] BASIC METABOLIC PANELon 02-04 Anion gap [Moles/Vol] 20 mmol/L Normal 10-20 [facility] [place] [facility] Comment on above: Order Comment: Injur y/Trauma or Illness?:Illness/Other How long have you had these symptoms (acute/chronic)?:Chronic Reason for exam?:A-fib [facility] TO READ Type of Exam?:Initial Additional signs and symptoms?:n Performed By: #### 4 [id number] #### LAB [address] [place], [place] [address] Maurice Coello M.D. [id number] Calcium [Mass/Vol] 9.1 mg/dL Normal 8.4-10.2 [facility] Comment on above: Order Comment: Injur y/Trauma or Illness?:Illness/Other How long have you had these symptoms (acute/chronic)?:Chronic Reason for exam?:A-fib [facility] TO READ Type of Exam?:Initial Additional signs and symptoms?:n Performed By: #### 4 [id number] #### LAB [address] [address] Maurice Coello M.D. [id number] Chloride [Moles/Vol] 95 mmol/L Low 98-108 [facility] Comment on above: Order Comment: Injur y/Trauma or Illness?:Illness/Other How long have you had these symptoms (acute/chronic)?:Chronic Reason for exam?:A-fib [facility] TO READ Type of Exam?:Initial Additional signs and symptoms?:n Performed By: #### 4 [id number] #### LAB [address] [address] Maurice Coello M.D. [id number] Creatinine [Mass/Vol] 1.78 mg/dL High 0.60-1.10 [facility] [place] [facility] Comment on above: Order Comment: Injur y/Trauma or Illness?:Illness/Other How long have you had these symptoms (acute/chronic)?:Chronic Reason for exam?:A-fib [facility] TO READ Type of Exam?:Initial Additional signs and symptoms?:n Performed By: #### 4 [id number] #### LAB [address] [address] Maurice Coello M.D. [id number] EGFR 31 mL/min/1.73 m2 Low >=60 [facility] Comment on above: Order Comment: Injur y/Trauma or Illness?:Illness/Other How long have you had these symptoms (acute/chronic)?:Chronic Reason for exam?:A-fib [facility] TO READ Type of Exam?:Initial Additional signs and symptoms?:n Result Comment: Ericka mated GFR was calculated using the 2020 CKD-EPI creatinine equation. Performed By: #### 4 [id number] #### LAB [address] [address] Maurice Coello M.D. [id number] Glucose [Mass/Vol] 194 mg/dL High 65-99 [facility] Comment on above: Order Comment: Injur y/Trauma or Illness?:Illness/Other How long have you had these symptoms (acute/chronic)?:Chronic Reason for exam?:A-fib [facility] TO READ Type of Exam?:Initial Additional signs and symptoms?:n Performed By: #### 4 [id number] #### LAB [address] [address] Maurice Coello M.D. [id number] HCO3 (Bld) [Moles/Vol] 23 mmol/L Normal 21-32 [facility] Comment on above: Order Comment: Injur y/Trauma or Illness?:Illness/Other How long have you had these symptoms (acute/chronic)?:Chronic Reason for exam?:A-fib [facility] TO READ Type of Exam?:Initial Additional signs and symptoms?:n Performed By: #### 4 [id number] #### LAB [address] [address] Maurice Coello M.D. [id number] Potassium [Moles/Vol] 4.9 mmol/L Normal 3.5-5.1 [facility] [place] [facility] Comment on above: Order Comment: Injur y/Trauma or Illness?:Illness/Other How long have you had these symptoms (acute/chronic)?:Chronic Reason for exam?:A-fib [facility] TO READ Type of Exam?:Initial Additional signs and symptoms?:n Performed By: #### 4 6180 #### LAB [address] [address] Maurice Coello M.D. [id number] Sodium [Moles/Vol] 133 mmol/L Low 135-145 [facility] Comment on above: Order Comment: Injur y/Trauma or Illness?:Illness/Other How long have you had these symptoms (acute/chronic)?:Chronic Reason for exam?:A-fib [facility] TO READ Type of Exam?:Initial Additional signs and symptoms?:n Performed By: #### 4 [id number] #### LAB [address] [address] Maurice Coello M.D. [id number] Urea nitrogen [Mass/Vol] 20 mg/dL Normal 8-25 [facility] Comment on above: Order Comment: Injur y/Trauma or Illness?:Illness/Other How long have you had these symptoms (acute/chronic)?:Chronic Reason for exam?:A-fib [facility] TO READ Type of Exam?:Initial Additional signs and symptoms?:n Performed By: #### 4 [id number] #### LAB [address] [address] Maurice Coello M.D. [id number] Urea nitrogen/Creatinine [Mass ratio] 11.2 mg/mg Normal 10.0-20.0 [facility] Comment on above: Order Comment: Injur y/Trauma or Illness?:Illness/Other How long have you had these symptoms (acute/chronic)?:Chronic Reason for exam?:A-fib [facility] TO READ Type of Exam?:Initial Additional signs and symptoms?:n Performed By: #### 4 [id number] #### LAB [address] [place], [place] [address] Maurice Coello M.D. [id number] Basic metabolic 2000 panelon 02-14-2025 Anion gap [Moles/Vol] 20 mmol/L 10 - 2 0 mmol/L [facility] Calcium [Mass/Vol] 9.1 mg/dL 8.4 - 10. 2 mg/dL [facility] Chloride [Moles/Vol] 95 mmol/L Low 98 - 10 8 mmol/L [facility] Creatinine [Mass/Vol] 1.78 mg/dL High 0.60 - 1.20 mg/dL [facility] GFR/1.73 sq M.predicted CKD-EPI (S/P/Bld) [Vol rate/Area] 31 Low - PINF [facility] Comment on above: Estimated GFR was ca lculated using the 2020 CKD-EPI creatinine equation. Glucose [Mass/Vol] 194 mg/dL High 65 - 99 mg/dL [facility] HCO3 [Moles/Vol] 23 mmol/L 21 - 32 mmol/L [facility] Potassium [Moles/Vol] 4.9 mmol/L 3.5 - 5.1 mmol/L [facility] Sodium [Moles/Vol] 133 mmol/L Low 135 - 145 mmol/L [facility] Urea nitrogen [Mass/Vol] 20 mg/dL 8 - 25 mg/dL [facility] Urea nitrogen/Creatinine [Mass ratio] 11.2 mg/mg 10.0 - 20.0 [facility] has implemented the eGFR calculation approach that does not have a coefficient for race that conforms to the NKF-ASN Task Force Recommendations. [facility] CBC Auto Differentialon 02-04 Basophils (Bld) [#/Vol] 0.01 10*3/uL [facility] Basophils/100 WBC (Bld) 0.1 % [facility] Eosinophils (Bld) [#/Vol] 0 10*3/uL [facility] Eosinophils/100 WBC (Bld) 0 % [facility] Erythrocyte distribution width (RBC) [Entitic vol] 13.7 % 11.6 - 14.8 % [facility] Hematocrit (Bld) [Volume fraction] 36.6 % 36.0 - 46.0 % [facility] Hemoglobin (Bld) [Mass/Vol] 11.3 g/dL Low 12.0 - 16.0 g/dL [facility] Immature granulocytes (Bld) [#/Vol] 0.03 10*3/uL [facility] Immature granulocytes/100 WBC (Bld) 0.4 % [facility] Comment on above: The IG parameter is the percentage of metamyelocytes, myelocytes and promyelocytes. An immature granulocyte count (IG) of 1% or more suggests the possibility of infection, an IG count of 3% is very likely related to an infection. Interpretation and review of laboratory results Abnormal [facility] Lymphocytes (Bld) [#/Vol] 0.76 10*3/uL Low [facility] Lymphocytes/100 WBC (Bld) 9.6 % [facility] MCH (RBC) [Entitic mass] 25.7 pg Low 26.0 - 34.0 pg [facility] MCHC (RBC) [Mass/Vol] 30.9 g/dL Low 31.0 - 37.0 g/dL [facility] MCV (RBC) [Entitic vol] 83.4 fL 80.0 - 100.0 fL [facility] Monocytes (Bld) [#/Vol] 0.08 10*3/uL Low [facility] Monocytes/100 WBC (Bld) 1 % [facility] Neutrophils (Bld) [#/Vol] 7.04 10*3/uL High [facility] Neutrophils/100 WBC (Bld) 88.9 % [facility] Nucleated RBC (Bld) [#/Vol] 0 10*3/uL [facility] Nucleated RBC/100 WBC (Bld) [Ratio] 0 % [facility] Platelet mean volume (Bld) [Entitic vol] 10.2 fL 9.4 - 12.4 fL [facility] Platelets (Bld) [#/Vol] 278 10*3/uL [facility] RBC (Bld) [#/Vol] 4.39 10*6/uL [facility] WBC (Bld) [#/Vol] 7.92 10*3/uL [facility] CBC WITH AUTO DIFFERENTIALon 02-14-2025 AUTO NRBC 0.0 % Normal [facility] Comment on above: Performed By: #### L [id number] #### LAB [address] [address] Maurice Coello M.D. [id number] AUTO NRBC ABS COUNT 0.00 K/mcL Normal 0.00-0.00 [facility] Comment on above: Performed By: #### L [id number] ####[facility] LAB [address] [address] Maurice Coello M.D. [id number] BASOPHILS ABSOLUTE COUNT 0.01 K/mcL Normal 0.00-0.30 [facility] Comment on above: Performed By: #### L [id number] #### LAB [address] [address] Maurice Coello M.D. [id number] Basophils/100 WBC (Bld) 0.1 % Normal [facility] Comment on above: Performed By: #### L [id number] #### LAB [address] [address] Maurice Coello M.D. [id number] Eosinophils (Bld) [#/Vol] 0.00 10*3/uL Normal 0.00-0.50 [facility] Comment on above: Performed By: #### L [id number] ####[facility] LAB [address] [address] Maurice Coello M.D. [id number] Eosinophils/100 WBC (Bld) 0.0 % Normal [facility] Comment on above: Performed By: #### L [id number] #### LAB [address] [address] Maurice Coello M.D. [id number] Erythrocyte distribution width (RBC) [Ratio] 13.7 % Normal 11.6-14.8 [facility] Comment on above: Performed By: #### L [id number] #### LAB [address] [address] Maurice Coello M.D. [id number] Hematocrit (Bld) [Volume fraction] 36.6 % Normal 36.0-46.0 [facility] Comment on above: Performed By: #### L [id number] #### LAB [address] [address] Maurice Coello M.D. [id number] Hemoglobin (Bld) [Mass/Vol] 11.3 g/dL Low 12.0-16.0 [facility] Comment on above: Performed By: #### L [id number] #### LAB [address] [address] Maurice Coello M.D. [id number] IG ABSOLUTE 0.03 K/mcL Normal 0.00-0.30 [facility] Comment on above: Performed By: #### L [id number] #### LAB [address] [place] [address] Maurice Coello M.D. [id number] IG PERCENT 0.40 % Normal [facility] Comment on above: Result Comment: The IG parameter is the percentage of metamyelocytes, myelocytes and promyelocytes. An immature granulocyte count (IG) of 1% or more suggests the possibility of infection, an IG count of 3% is very likely related to an infection. Performed By: #### L [id number] #### LAB [address] [address] Maurice Coello M.D. [id number] Lymphocytes (Bld) [#/Vol] 0.76 10*3/uL Low 0.90-4.00 [facility] Comment on above: Performed By: #### L [id number] #### LAB [address] [address] Maurice Coello M.D. [id number] Lymphocytes/100 WBC (Bld) 9.6 % [facility] Comment on above: Performed By: #### L [id number] #### LAB [address] [address] Maurice Coello M.D. [id number] MCH (RBC) [Entitic mass] 25.7 pg Low 26.0-34.0 [facility] Comment on above: Performed By: #### L [id number] #### LAB [address] [address] Maurice Coello M.D. [id number] MCV (RBC) [Entitic vol] 83.4 fL Normal 80.0-100.0 [facility] Comment on above: Performed By: #### L [id number] #### LAB [address] [address] Maurice Coello M.D. [id number] MEAN CORPUSCULAR HEMOGLOBIN CONC 30.9 g/dL Low 31.0-37.0 [facility] Comment on above: Performed By: #### L [id number] #### LAB [address] [place] [address] Maurice Coello M.D. [id number] Monocytes (Bld) [#/Vol] 0.08 10*3/uL Low 0.30-0.90 [facility] Comment on above: Performed By: #### L [id number] ####[facility] LAB [address] [address] Maurice Coello M.D. [id number] Monocytes/100 WBC (Bld) 1.0 % Normal [facility] Comment on above: Performed By: #### L [id number] #### LAB [address] [address] Maurice Coello M.D. [id number] NEUTROPHILS ABSOLUTE COUNT 7.04 K/mcL High 1.70-7.00 [facility] Comment on above: Performed By: #### L [id number] #### LAB [address] [address] Maurice Coello M.D. [id number] Neutrophils/100 WBC (Bld) 88.9 % Normal [facility] Comment on above: Performed By: #### L [id number] #### LAB [address] [address] Maurice Coello M.D. [id number] Platelet mean volume (Bld) [Entitic vol] 10.2 fL Normal 9.4-12.4 [facility] Comment on above: Performed By: #### L [id number] #### LAB [address] [address] Maurice Coello M.D. [id number] Platelets (Bld) [#/Vol] 278 10*3/uL Normal 150-400 [facility] Comment on above: Performed By: #### L [id number] #### LAB [address] [address] Maurice Coello M.D. [id number] RBC (Bld) [#/Vol] 4.39 10*6/uL Normal 4.00-5.20 [facility] Comment on above: Performed By: #### L [id number] ####[facility] LAB [address] [address] Maurice Coello M.D. [id number] WBC (Bld) [#/Vol] 7.92 10*3/uL Normal 4.50-11.00 [facility] Comment on above: Performed By: #### L [id number] #### LAB [address] [place], [place] [address] Maurice Coello M.D. [id number] CK [Catalytic activity/Vol]o n 02-14-2025 Interpretation and review of laboratory results Abnormal [facility] CPKon 02-14-2025 CPK 72079 U/L High 40-170 [facility] Comment on above: Performed By: #### 4 [id number] ####[facility] LAB [address] [address] Maurice Coello M.D. [id number] CPK NO MBon 02-14-2025 CK [Catalytic activity/Vol] 57954 U/L High 40 - 170 U/L [facility] EKGon 02-14-2025 [facility] MAGNESIUM LEVELon 02-14-2025 Magnesium [Mass/Vol] 1.8 mg/dL Normal 1.6-2.4 [facility] Comment on above: Performed By: #### 4 [id number] ####[facility] LAB [address] [address] Maurice Coello M.D. [id number] MRSA DNA AMPLIFIED PROBEon 0 02-14-2025 MRSA DNA AMPLIFIED PROBE Negative Normal Not Detected, MRSA NEGATIVE [facility] Comment on above: Performed By: #### 4 [id number] #### LAB [address] [address] Maurice Coello M.D. [id number] MRSA DNA Amplified ProbeOrde red By: Jonatan West on 02-14-2025 MRSA DNA CATRINA+probe Ql (Unsp spec) Negative Not Detected, MRSA NEGATIVE [facility] MRSA DNA CATRINA+probe Ql (Unsp spec)Ordered By: Jonatan West on 02-14-2025 Interpretation and review of laboratory results Normal [facility] Magnesiumon 02-14-2025 Magnesium [Mass/Vol] 1.8 mg/dL 1.6 - 2 .4 mg/dL [facility] Magnesium [Mass/Vol]on 02-14 Interpretation and review of laboratory results Normal [facility] No Panel Informationon 02-14 Interpretation and review of laboratory results Abnormal [facility] TROPONIN X 2 (NOW AND REPEAT IN 2 HOURS)on 02-14-2025 TROPONIN T DELTA % NG/L -23 % Off scale low <20 % of Baseline Troponin [facility] Comment on above: Performed By: #### L [id number] #### [facility] LAB [address] [address] Maurice Coello M.D. [id number] TROPONIN T DELTA CHANGE INTERPRETATION Probable acute injury or myocardial infarction. Normal [facility] Comment on above: Performed By: #### L [id number] #### [facility] LAB [address] [address] Maurice Coello M.D. [id number] TROPONIN T NG/L 76 ng/L Off scale high <=14 [facility] Comment on above: Performed By: #### L [id number] #### LAB [address] [address] Maurice Coello M.D. [id number] TSHon 02-14-2025 TSH Qn 0.13 m[IU]/L Low 0.27-4.20 [facility] Comment on above: Performed By: #### 4 [id number] #### LAB [address] [address] Maurice Coello M.D. [id number] TSH DL <= 0.005 mIU/L Qnon 0 02-14-2025 TSH Qn 0.13 m[IU]/L Low [facility] Troponin x 2 (Now and Repeat in 2 Hours)on 02-14-2025 Interp Troponin T Delta Change Probable acute injury or myocardial infarction. [facility] Interpretation and review of laboratory results Abnormal [facility] Troponin T Delta % -23 % Critically low <20% of Baseline Troponin [facility] Troponin T.cardiac High sensitivity method [Mass/Vol] 76 ng/L Critically high NINF - 14 ng/L [facility] Interp Troponin T Delta Change Probable non-acute cardiac injury or late presentation of acute injury. [facility] Interpretation and review of laboratory results Abnormal [facility] Troponin T Delta % -16 % <20% of Baseline Troponin [facility] Troponin T.cardiac High sensitivity method [Mass/Vol] 83 ng/L Critically high NINF - 14 ng/L [facility] BASIC METABOLIC PANELon 02-04 Anion gap [Moles/Vol] 18 mmol/L Normal 10-20 [facility] [place] [facility] Comment on above: Order Comment: [facility] has implemented the eGFR calculation approach that does not have a coefficient for race that conforms to the NKF-ASN Task Force Recommendations. Performed By: #### 4 [id number] #### LAB [address] [address] Maurice Coello M.D. [id number] Calcium [Mass/Vol] 9.7 mg/dL Normal 8.4-10.2 [facility] Comment on above: Order Comment: [facility] has implemented the eGFR calculation approach that does not have a coefficient for race that conforms to the NKF-ASN Task Force Recommendations. Performed By: #### 4 [id number] #### LAB [address] [address] Maurice Coello M.D. [id number] Chloride [Moles/Vol] 95 mmol/L Low 98-108 [facility] Comment on above: Order Comment: [facility] has implemented the eGFR calculation approach that does not have a coefficient for race that conforms to the NKF-ASN Task Force Recommendations. Performed By: #### 4 [id number] #### LAB [address] [address] Maurice Coello M.D. [id number] Creatinine [Mass/Vol] 1.66 mg/dL High 0.60-1.10 [facility] [place] [facility] Comment on above: Order Comment: [facility] has implemented the eGFR calculation approach that does not have a coefficient for race that conforms to the NKF-ASN Task Force Recommendations. Performed By: #### 4 [id number] #### LAB [address] [place], [place] [address] Maurice Coello M.D. [id number] EGFR 34 mL/min/1.73 m2 Low >=60 [facility] Comment on above: Order Comment: [facility] has implemented the eGFR calculation approach that does not have a coefficient for race that conforms to the NKF-ASN Task Force Recommendations. Result Comment: Ericka mated GFR was calculated using the 2020 CKD-EPI creatinine equation. Performed By: #### 4 6190 #### LAB [address] [address] Maurice Coello M.D. [id number] Glucose [Mass/Vol] 128 mg/dL High 65-99 [facility] Comment on above: Order Comment: [facility] has implemented the eGFR calculation approach that does not have a coefficient for race that conforms to the NKF-ASN Task Force Recommendations. Performed By: #### 4 6137 #### LAB [address] [address] Maurice Coello M.D. [id number] HCO3 (Bld) [Moles/Vol] 27 mmol/L Normal 21-32 [facility] Comment on above: Order Comment: [facility] has implemented the eGFR calculation approach that does not have a coefficient for race that conforms to the NKF-ASN Task Force Recommendations. Performed By: #### 4 6171 #### LAB [address] [address] Maurice Coello M.D. [id number] Potassium [Moles/Vol] 4.5 mmol/L Normal 3.5-5.1 [facility] [place] [facility] Comment on above: Order Comment: [facility] has implemented the eGFR calculation approach that does not have a coefficient for race that conforms to the NKF-ASN Task Force Recommendations. Performed By: #### 4 [id number] #### LAB [address] [address] Maurice Coello M.D. [id number] Sodium [Moles/Vol] 135 mmol/L Normal 135-145 [facility] Comment on above: Order Comment: [facility] has implemented the eGFR calculation approach that does not have a coefficient for race that conforms to the NKF-ASN Task Force Recommendations. Performed By: #### 4 7852 #### [facility] LAB [address] [place], [place] [address] Maurice Coello M.D. [id number] Urea nitrogen [Mass/Vol] 18 mg/dL Normal 8-25 [facility] Comment on above: Order Comment: [facility] has implemented the eGFR calculation approach that does not have a coefficient for race that conforms to the NKF-ASN Task Force Recommendations. Performed By: #### 4 [id number] #### LAB [address] [address] Maurice Coello M.D. [id number] Urea nitrogen/Creatinine [Mass ratio] 10.8 mg/mg Normal 10.0-20.0 [facility] Comment on above: Order Comment: [facility] has implemented the eGFR calculation approach that does not have a coefficient for race that conforms to the NKF-ASN Task Force Recommendations. Performed By: #### 4 [id number] #### LAB [address] [address] Maurice Coello M.D. [id number] BLOOD CULTURE AEROBIC/ANAERO BICon 02-13-2025 BLOOD CULTURE AEROBIC/ANAEROBIC BLOOD CULTURE No Growth after 5 days Normal [facility] Comment on above: Performed By: #### 4 [id number] #### LAB [address] [address] Maurice Coello M.D. [id number] BNP (NT Pro BNP)on Natriuretic peptide.B prohormone N-Terminal [Mass/Vol] 3931 pg/mL High 0 - 300 pg/mL [facility] Basic metabolic 2000 panelon 02-13-2025 Anion gap [Moles/Vol] 18 mmol/L 10 - 2 0 mmol/L [facility] Calcium [Mass/Vol] 9.7 mg/dL 8.4 - 10. 2 mg/dL [facility] Chloride [Moles/Vol] 95 mmol/L Low 98 - 10 8 mmol/L [facility] Creatinine [Mass/Vol] 1.66 mg/dL High 0.60 - 1.20 mg/dL [facility] GFR/1.73 sq M.predicted CKD-EPI (S/P/Bld) [Vol rate/Area] 34 Low - PINF [facility] Comment on above: Estimated GFR was ca lculated using the 2020 CKD-EPI creatinine equation. Glucose [Mass/Vol] 128 mg/dL High 65 - 99 mg/dL [facility] HCO3 [Moles/Vol] 27 mmol/L 21 - 32 mmol/L [facility] Potassium [Moles/Vol] 4.5 mmol/L 3.5 - 5.1 mmol/L [facility] Sodium [Moles/Vol] 135 mmol/L 135 - 145 mmol/L [facility] Urea nitrogen [Mass/Vol] 18 mg/dL 8 - 25 mg/dL [facility] Urea nitrogen/Creatinine [Mass ratio] 10.8 mg/mg 10.0 - 20.0 [facility] has implemented the eGFR calculation approach that does not have a coefficient for race that conforms to the NKF-ASN Task Force Recommendations. [facility] CBC Auto Differentialon 02-04 Basophils (Bld) [#/Vol] 0.04 10*3/uL [facility] Basophils/100 WBC (Bld) 0.4 % [facility] Eosin[facility] (Bld) [#/Vol] 0.01 10*3/uL [facility] Eosinophils/100 WBC (Bld) 0.1 % [facility] Erythrocyte distribution width (RBC) [Entitic vol] 13.7 % 11.6 - 14.8 % [facility] Hematocrit (Bld) [Volume fraction] 42.7 % 36.0 - 46.0 % [facility] Hemoglobin (Bld) [Mass/Vol] 13 g/dL 12.0 - 16.0 g/dL [facility] Immature granulocytes (Bld) [#/Vol] 0.05 10*3/uL [facility] Immature granulocytes/100 WBC (Bld) 0.4 % [facility] Comment on above: The IG parameter is the percentage of metamyelocytes, myelocytes and promyelocytes. An immature granulocyte count (IG) of 1% or more suggests the possibility of infection, an IG count of 3% is very likely related to an infection. Interpretation and review of laboratory results Abnormal [facility] Lymphocytes (Bld) [#/Vol] 0.93 10*3/uL [facility] Lymphocytes/100 WBC (Bld) 8.2 % [facility] MCH (RBC) [Entitic mass] 25.5 pg Low 26.0 - 34.0 pg [facility] MCHC (RBC) [Mass/Vol] 30.4 g/dL Low 31.0 - 37.0 g/dL [facility] MCV (RBC) [Entitic vol] 83.7 fL 80.0 - 100.0 fL [facility] Monocytes (Bld) [#/Vol] 0.55 10*3/uL [facility] Monocytes/100 WBC (Bld) 4.8 % [facility] Neutrophils (Bld) [#/Vol] 9.81 10*3/uL [facility] Neutrophils/100 WBC (Bld) 86.1 % [facility] Nucleated RBC (Bld) [#/Vol] 0 10*3/uL [facility] Nucleated RBC/100 WBC (Bld) [Ratio] 0 % [facility] Platelet mean volume (Bld) [Entitic vol] 10.1 fL 9.4 - 12.4 fL [facility] Platelets (Bld) [#/Vol] 319 10*3/uL [facility] RBC (Bld) [#/Vol] 5.1 10*6/uL [facility] alth WBC (Bld) [#/Vol] 11.39 10*3/uL [facility] CBC WITH AUTO DIFFERENTIALon 02-13-2025 AUTO NRBC 0.0 % Normal [facility] Comment on above: Performed By: #### L [id number] #### LAB [address] [address] Maurice Coello M.D. [id number] AUTO NRBC ABS COUNT 0.00 K/mcL Normal 0.00-0.00 [facility] Comment on above: Performed By: #### L [id number] #### LAB [address] [address] Maurice Coello M.D. [id number] BASOPHILS ABSOLUTE COUNT 0.04 K/mcL Normal 0.00-0.30 [facility] Comment on above: Performed By: #### L [id number] #### LAB [address] [address] Maurice Coello M.D. [id number] Basophils/100 WBC (Bld) 0.4 % Normal [facility] Comment on above: Performed By: #### L [id number] #### LAB [address] [address] Maurice Coello M.D. [id number] Eosinophils (Bld) [#/Vol] 0.01 10*3/uL Normal 0.00-0.50 [facility] Comment on above: Performed By: #### L [id number] #### LAB [address] [address] Maurice Ceollo M.D. [id number] Eosinophils/100 WBC (Bld) 0.1 % Normal [facility] Comment on above: Performed By: #### L [id number] #### LAB [address] [address] Maurice Coello M.D. [id number] Erythrocyte distribution width (RBC) [Ratio] 13.7 % Normal 11.6-14.8 [facility] Comment on above: Performed By: #### L [id number] #### LAB [address] [address] Maurice Coello M.D. [id number] Hematocrit (Bld) [Volume fraction] 42.7 % Normal 36.0-46.0 [facility] Comment on above: Performed By: #### L [id number] #### LAB [address] [address] Maurice Coello M.D. [id number] Hemoglobin (Bld) [Mass/Vol] 13.0 g/dL Normal 12.0-16.0 [facility] Comment on above: Performed By: #### L [id number] #### LAB [address] [address] Maurice Coello M.D. [id number] IG ABSOLUTE 0.05 K/mcL Normal 0.00-0.30 [facility] Comment on above: Performed By: #### L [id number] #### LAB [address] [address] Maurice Coello M.D. [id number] IG PERCENT 0.40 % Normal [facility] Comment on above: Result Comment: The IG parameter is the percentage of metamyelocytes, myelocytes and promyelocytes. An immature granulocyte count (IG) of 1% or more suggests the possibility of infection, an IG count of 3% is very likely related to an infection. Performed By: #### L [id number] #### LAB [address] [place] [address] Maurice Coello M.D. [id number] Lymphocytes (Bld) [#/Vol] 0.93 10*3/uL Normal 0.90-4.00 [facility] Comment on above: Performed By: #### L [id number] #### LAB [address] [address] Maurice Coello M.D. [id number] Lymphocytes/100 WBC (Bld) 8.2 % Normal [facility] Comment on above: Performed By: #### L [id number] #### LAB [address] [place] [address] Maurice Coello M.D. [id number] MCH (RBC) [Entitic mass] 25.5 pg Low 26.0-34.0 [facility] Comment on above: Performed By: #### L [id number] #### LAB [address] [place] [address] Maurice Coello M.D. [id number] MCV (RBC) [Entitic vol] 83.7 fL Normal 80.0-100.0 [facility] Comment on above: Performed By: #### L [id number] #### LAB [address] [place] [address] Maurice Coello M.D. [id number] MEAN CORPUSCULAR HEMOGLOBIN CONC 30.4 g/dL Low 31.0-37.0 [facility] Comment on above: Performed By: #### L [id number] #### LAB [address] [place] [address] Maurice Coello M.D. [id number] Monocytes (Bld) [#/Vol] 0.55 10*3/uL Normal 0.30-0.90 [facility] Comment on above: Performed By: #### L [id number] #### LAB [address] [address] Maurice Coello M.D. [id number] Monocytes/100 WBC (Bld) 4.8 % Normal [facility] Comment on above: Performed By: #### L [id number] #### LAB [address] [address] Maurice Coello M.D. [id number] NEUTROPHILS ABSOLUTE COUNT 9.81 K/mcL High 1.70-7.00 [facility] Comment on above: Performed By: #### L [id number] ####[facility] LAB [address] [address] Maurice Coello M.D. [id number] Neutrophils/100 WBC (Bld) 86.1 % Normal [facility] Comment on above: Performed By: #### L [id number] #### LAB [address] [address] Maurice Coello M.D. [id number] Platelet mean volume (Bld) [Entitic vol] 10.1 fL Normal 9.4-12.4 [facility] Comment on above: Performed By: #### L [id number] ####[facility] LAB [address] [address] Maurice Coello M.D. [id number] Platelets (Bld) [#/Vol] 319 10*3/uL Normal 150-400 [facility] Comment on above: Performed By: #### L [id number] #### LAB [address] [address] Maurice Coello M.D. [id number] RBC (Bld) [#/Vol] 5.10 10*6/uL Normal 4.00-5.20 [facility] Comment on above: Performed By: #### L [id number] ####[facility] LAB [address] [address] Maurice Coello M.D. [id number] WBC (Bld) [#/Vol] 11.39 10*3/uL High 4.50-11.00 [facility] Comment on above: Performed By: #### L [id number] #### LAB [address] [place], [place] [address] Maurice Coello M.D. [id number] CK [Catalytic activity/Vol]o n 02-13-2025 Interpretation and review of laboratory results Abnormal [facility] Manual dilution performed [facility] COVID-19/INFLUENZA A,B MOLEC ULARon 02-13-2025 SARS-CoV-2 (COVID-19) Ab IA Ql SARS-COV-2 (SOFIE) Not Detected INFLUENZA A (SOFIE) Not Detected INFLUENZA B (SOFIE) Not Detected Normal Not Detected [facility] Comment on above: Performed By: #### L [id number] #### LAB [address] [place], [place] [address] Maurice Coello M.D. [id number] CPKon 02-13-2025 CPK 85982 U/L High 40-170 [facility] Comment on above: Order Comment: [facility] has implemented the eGFR calculation approach that does not have a coefficient for race that conforms to the NKF-ASN Task Force Recommendations. Performed By: #### 4 [id number] #### LAB [address] [place], [place] [address] Maurice Coello M.D. [id number] CPK NO MBon 02-13-2025 CK [Catalytic activity/Vol] 80579 U/L High 40 - 170 U/L [facility] CT Abdomen and Pelvis W cont rast Brian 02-13-[address] evidence for pulmonary embolism. There is no evidence for thoracic aortic aneurysm or dissection. A cluster of small hazy nodular densities are seen in the posteroinferior right upper lobe, measuring up to 1 cm, suspicious for infectious/inflammatory process. Additional cluster of subcentimeter calcified and noncalcified nodules are seen within the lateral right upper lobe. No dense focal consolidation is seen. Workstation ID: [id number] [employer] [facility] EXAMINATION: CTA PULM ART AND CT ABD PELVIS WITH IV CONTRAST HISTORY: ORDERING SYSTEM PROVIDED HISTORY: sob, assess for PE and other acute etiologies, diarrhea, TECHNOLOGIST PROVIDED HISTORY: Illness/Other Reason for exam: sob, assess for PE and other acute etiologies, diarrhea Encounter Type: Initial Additional signs and symptoms: . ORDERING SYSTEM PROVIDED DIAGNOSIS CODES: COMPARISON: None TECHNIQUE: CT angiography of the pulmonary arteries following the administration of intravenous contrast. Coronal and sagittal MIP images were performed. Dose reduction techniques were achieved by using automated exposure control and/or adjustment of mA and/or kV according to patient size and/or use of iterative reconstruction technique. CONTRAST: IOPAMIDOL 370 MG IODINE/ML (76 %) INTRAVENOUS SOLUTION - 75 mL, FINDINGS: Chest: There is adequate contrast opacification of the pulmonary arteries. No abrupt cutoff or significant filling defect is seen within the pulmonary arteries to suggest CT evidence for pulmonary embolism. The pulmonary arteries are normal in caliber. The thoracic aorta is normal in course, caliber and contrast-enhancement. There is no evidence for thoracic aortic aneurysm or dissection. There is no evidence for effusion or pneumothorax. A cluster of small hazy nodular densities are seen in the posteroinferior right upper lobe, measuring up to 1 cm, suspicious for infectious/inflammatory process. Additional cluster of subcentimeter calcified and noncalcified nodules are seen within the lateral right upper lobe. No dense focal consolidation is seen. No significant enlarged hilar, mediastinal or axillary adenopathy is seen. The visualized chest wall appears unremarkable. No destructive osseous lesion is seen. Abdomen/pelvis: Patient is post cholecystectomy. The liver, spleen, pancreas and bilateral adrenal glands appear unremarkable. Bilateral kidneys demonstrate normal size, morphology and contrast-enhancement. There is no evidence for hydronephrosis bilaterally. The urinary bladder appears unremarkable. Nonobstructive bowel pattern is seen. The appendix is not identified. No abnormal pericecal inflammatory changes are seen. No significant bowel wall thickening is seen. No significant free fluid or abnormal fluid collection is seen in the abdomen and pelvis. Aortic and iliac arterial calcification is seen without aneurysmal dilatation. The abdominal wall and visualized soft tissues appear unremarkable. No destructive osseous lesion is seen. Mild multilevel degenerative changes of the lumbar spine is seen. [employer] Matias Holguin MD - 02/13/2025 EXAMINATION: CTA PULM ART AND CT ABD PELVIS WITH IV CONTRAST HISTORY: ORDERING SYSTEM PROVIDED HISTORY: sob, assess for PE and other acute etiologies, diarrhea, TECHNOLOGIST PROVIDED HISTORY: Illness/Other Reason for exam: sob, assess for PE and other acute etiologies, diarrhea Encounter Type: Initial Additional signs and symptoms: . ORDERING SYSTEM PROVIDED DIAGNOSIS CODES: COMPARISON: None TECHNIQUE: CT angiography of the pulmonary arteries following the administration of intravenous contrast. Coronal and sagittal MIP images were performed. Dose reduction techniques were achieved by using automated exposure control and/or adjustment of mA and/or kV according to patient size and/or use of iterative reconstruction technique. CONTRAST: IOPAMIDOL 370 MG IODINE/ML (76 %) INTRAVENOUS SOLUTION - 75 mL, FINDINGS: Chest: There is adequate contrast opacification of the pulmonary arteries. No abrupt cutoff or significant filling defect is seen within the pulmonary arteries to suggest CT evidence for pulmonary embolism. The pulmonary arteries are normal in caliber. The thoracic aorta is normal in course, caliber and contrast-enhancement. There is no evidence for thoracic aortic aneurysm or dissection. There is no evidence for effusion or pneumothorax. A cluster of small hazy nodular densities are seen in the posteroinferior right upper lobe, measuring up to 1 cm, suspicious for infectious/inflammatory process. Additional cluster of subcentimeter calcified and noncalcified nodules are seen within the lateral right upper lobe. No dense focal consolidation is seen. No significant enlarged hilar, mediastinal or axillary adenopathy is seen. The visualized chest wall appears unremarkable. No destructive osseous lesion is seen. Abdomen/pelvis: Patient is post cholecystectomy. The liver, spleen, pancreas and bilateral adrenal glands appear unremarkable. Bilateral kidneys demonstrate normal size, morphology and contrast-enhancement. There is no evidence for hydronephrosis bilaterally. The urinary bladder appears unremarkable. Nonobstructive bowel pattern is seen. The appendix is not identified. No abnormal pericecal inflammatory changes are seen. No significant bowel wall thickening is seen. No significant free fluid or abnormal fluid collection is seen in the abdomen and pelvis. Aortic and iliac arterial calcification is seen without aneurysmal dilatation. The abdominal wall and visualized soft tissues appear unremarkable. No destructive osseous lesion is seen. Mild multilevel degenerative changes of the lumbar spine is seen. IMPRESSION: No CT evidence for pulmonary embolism. There is no evidence for thoracic aortic aneurysm or dissection. A cluster of small hazy nodular densities are seen in the posteroinferior right upper lobe, measuring up to 1 cm, suspicious for infectious/inflammatory process. Additional cluster of subcentimeter calcified and noncalcified nodules are seen within the lateral right upper lobe. No dense focal consolidation is seen. Workstation ID: [id number] [facility] Radiology Study observation (narrative) [facility] CT Abdomen and Pelvis W cont rast IVOrdered By: Matias Adler on 02-13-2025 [facility] Work Phone: CTA PULM ART AND CT ABD PELV IS WITH IV CONTRASTon 02-13-[address] ABD PELVIS WITH IV CONTRAST EXAMINATION: CTA PULM ART AND CT ABD PELVIS WITH IV CONTRAST HISTORY: ORDERING SYSTEM PROVIDED HISTORY: sob, assess for PE and other acute etiologies, diarrhea, TECHNOLOGIST PROVIDED HISTORY: Illness/Other Reason for exam: sob, assess for PE and other acute etiologies, diarrhea Encounter Type: Initial Additional signs and symptoms: . ORDERING SYSTEM PROVIDED DIAGNOSIS CODES: COMPARISON: None TECHNIQUE: CT angiography of the pulmonary arteries following the administration of intravenous contrast. Coronal and sagittal MIP images were performed. Dose reduction techniques were achieved by using automated exposure control and/or adjustment of mA and/or kV according to patient size and/or use of iterative reconstruction technique. CONTRAST: IOPAMIDOL 370 MG IODINE/ML (76 %) INTRAVENOUS SOLUTION - 75 mL, FINDINGS: Chest: There is adequate contrast opacification of the pulmonary arteries. No abrupt cutoff or significant filling defect is seen within the pulmonary arteries to suggest CT evidence for pulmonary embolism. The pulmonary arteries are normal in caliber. The thoracic aorta is normal in course, caliber and contrast-enhancement. There is no evidence for thoracic aortic aneurysm or dissection. There is no evidence for effusion or pneumothorax. A cluster of small hazy nodular densities are seen in the posteroinferior right upper lobe, measuring up to 1 cm, suspicious for infectious/inflammatory process. Additional cluster of subcentimeter calcified and noncalcified nodules are seen within the lateral right upper lobe. No dense focal consolidation is seen. No significant enlarged hilar, mediastinal or axillary adenopathy is seen. The visualized chest wall appears unremarkable. No destructive osseous lesion is seen. Abdomen/pelvis: Patient is post cholecystectomy. The liver, spleen, pancreas and bilateral adrenal glands appear unremarkable. Bilateral kidneys demonstrate normal size, morphology and contrast-enhancement. There is no evidence for hydronephrosis bilaterally. The urinary bladder appears unremarkable. Nonobstructive bowel pattern is seen. The appendix is not identified. No abnormal pericecal inflammatory changes are seen. No significant bowel wall thickening is seen. No significant free fluid or abnormal fluid collection is seen in the abdomen and pelvis. Aortic and iliac arterial calcification is seen without aneurysmal dilatation. The abdominal wall and visualized soft tissues appear unremarkable. No destructive osseous lesion is seen. Mild multilevel degenerative changes of the lumbar spine is seen. IMPRESSION: No CT evidence for pulmonary embolism. There is no evidence for thoracic aortic aneurysm or dissection. A cluster of small hazy nodular densities are seen in the posteroinferior right upper lobe, measuring up to 1 cm, suspicious for infectious/inflammatory process. Additional cluster of subcentimeter calcified and noncalcified nodules are seen within the lateral right upper lobe. No dense focal consolidation is seen. Workstation ID: [id number] Dictated by: MATIAS ADLER on MonFeb 13, 2025 7:20:00 PM EDT Transcribed by: MATIAS ADLER on MonFeb 13, 2025 7:20:00 PM EDT Finalized by: MATIAS ADLER on MonFeb 13, 2025 7:20:00 PM EDT [facility] Comment on above: Order Comment: Resul ts of PCR testing for stool pathogens must be taken into clinical context when making treatment decisions. Most gastrointestinal infections due to common bacterial and viral causes are self-limited in nature and do not require antimicrobial therapy. The use of antimicrobial therapy must be carefully weighed against unintended and potentially harmful consequences. The role of antimicrobial therapy depends on the implicated pathogen. In general, antimicrobial agents are only used to treat parasitic infections as well as select bacterial infections. ED Procedureon 02-13-2025 ED Procedure Repeat EKG Date/Time: 02/13/2025 5:57 PM Performed by: Astrid Sanders DO Authorized by: Astrid Sanders DO Interpreted by ED attending physician Comparison: compared with previous ECG from 02/13/2025 Similar to previous ECG Comparison to previous ECG: This is a repeat EKG. Reassuring without acute dynamic changes, no STEMI. NSR. SC interval 144 ms. QRS 90 ms. BPM: 94 Clinical impression: normal ECG AUTHENTICATED BY ASTRID SANDERS, ON 02/13/2025 19:13:57 [facility] ED Procedure EKG 12-lead Date/Time: 02/13/2025 3:51 PM Performed by: Astrid Sanders DO Authorized by: Astrid Sanders DO Interpreted by ED attending physician Comparison: compared with previous ECG from 09/21/2024 Similar to previous ECG Rhythm: sinus rhythm and sinus tachycardia BPM: 101 Clinical impression: abnormal ECG and sinus tachycardia Comments: Sinus tachycardia. SC interval 140 ms. QRS [address] and T wave abnormality. No STEMI. AUTHENTICATED BY ASTRID SANDERS, ON 02/13/2025 16:34:05 Normal [facility] ED Prov Noteon 02-13-2025 ED Prov Note EMERGENCY MEDICINE PROVIDER NOTE WELCOM[facility] TO [facility] NAME: Radha Shafer AGE: 64 y.o. SEX: female : 1960 ENCOUNTER DATE: 02/13/25 CSN: [id number] PCP: Erin Physician History of Presenting Illness/Medical Decision Making The history was obtained from the patient. Radha is a 64 y.o. female with a PMH as stated below, Primary Care Physician on file: Erin, Physician , who presents with a chief complaint of Shortness of Breath. Patient states that she has been having progressively worsening shortness of breath for 1 week. She states that her chest hurts, but not my actual chest, it is my lungs, my lungs hurt. Positive orthopnea. Symptoms described as a squeezing sensation. Patient was given 4 baby aspirin by EMS OPERATION AGENT. No nitroglycerin. Patient states that she was supposed to have an MRI of her heart, but did not go to her appointment because of ongoing chronic diarrhea and had to cancel her appointment. Denies any blood in her stool. Denies recent antibiotic use. History of CPT 2, has generalized body aches and muscle pain. Eating and drinking per normal. Denies vomiting. Denies fever. Physical Exam Vital Signs Reviewed Patient Vitals for the past 24 hrs: BP Temp Pulse Resp SpO2 Height Weight 02/13/25 2230 (!) 159/87 -- 87 (!) 23 96 % -- -- 02/13/25 2200 (!) 160/85 -- 89 (!) 19 96 % -- -- 02/13/25 2100 (!) 154/88 -- 89 (!) 24 97 % -- -- 02/13/25 2030 (!) 122/91 -- 92 (!) 26 97 % -- -- 02/13/25 1930 (!) 167/96 -- 94 (!) 23 95 % -- -- 02/13/25 1830 (!) 167/84 -- 90 (!) 24 97 % -- -- 02/13/25 1730 (!) 180/96 -- 94 18 98 % -- -- 02/13/25 1630 (!) 155/92 -- 96 (!) 21 98 % -- -- 02/13/25 1545 (!) 160/95 99.1 degrees F (37.3 degrees C) (!) 105 (!) 22 98 % 5' 5 98 kg (216 lb) Physical Exam Vitals and nursing note reviewed. Constitutional: General: She is awake. She is not in acute distress. Appearance: Normal appearance. She is ill-appearing. She is not toxic-appearing or diaphoretic. HENT: Head: Normocephalic and atraumatic. Right Ear: External ear normal. Left Ear: External ear normal. Nose: Nose normal. Mouth/Throat: Lips: [place]. Mouth: Mucous membranes are moist. Eyes: General: Lids are normal. No scleral icterus. Conjunctiva/sclera: Conjunctivae normal. Neck: Trachea: Phonation normal. Cardiovascular: Rate and Rhythm: Tachycardia present. Pulses: Normal pulses. Heart sounds: Normal heart sounds. Musculoskeletal: Cervical back: Normal range of motion and neck supple. No tenderness. Right lower leg: Edema present. Left lower leg: Edema present. Pulmonary: Effort: Pulmonary effort is normal. Tachypnea present. No accessory muscle usage or respiratory distress. Breath sounds: Normal air entry. No stridor. Wheezing and rales present. No rhonchi. Abdominal: General: Abdomen is flat. Bowel sounds are normal. Palpations: Abdomen is soft. Tenderness: There is no abdominal tenderness. There is no guarding or rebound. Skin: General: Skin is warm. Capillary Refill: Capillary refill takes less than 2 seconds. Neurological: General: No focal deficit present. Mental Status: She is alert and oriented to person, place, and time. Psychiatric: Attention and Perception: Attention and perception normal. Mood and Affect: Mood and affect normal. Speech: Speech normal. Behavior: Behavior normal. Behavior is cooperative. Wt Readings from Last 10 Encounters: 02/13/25 98 kg (216 lb) 11/12/24 104.3 kg (230 lb) 09/25/24 103 kg (227 lb 1.2 oz) 09/18/24 107.5 kg (237 lb) 09/02/24 107.5 kg (237 lb) 11/10/22 101.6 kg (224 lb) 09/24/22 102.7 kg (226 lb 8 oz) 09/08/22 101.6 kg (224 lb) 08/15/22 102.8 kg (226 lb 11.2 oz) 07/19/22 103.9 kg (229 lb) Clinical Results CTA Pulm Art and CT Abd Pelvis with IV contrast Final Result No CT evidence for pulmonary embolism. There is no evidence for thoracic aortic aneurysm or dissection. A cluster of small hazy nodular densities are seen in the posteroinferior right upper lobe, measuring up to 1 cm, suspicious for infectious/inflammatory process. Additional cluster of subcentimeter calcified and noncalcified nodules are seen within the lateral right upper lobe. No dense focal consolidation is seen. Workstation ID: [id number] XR Chest 1 View Final Result No acute cardiopulmonary abnormality. Workstation ID: [id number] Labs Reviewed BASIC METABOLIC PANEL - Abnormal; Notable for the following components: Result Value Chloride 95 (*) Glucose 128 (*) Creatinine 1.66 (*) eGFR 34 (*) All other components within normal limits Narrative: [facility] has implemented the eGFR calculation approach that does not have a coefficient for race that conforms to the NKF-ASN Task Force Recommendations. NT PRO BNP - Abnormal; Notable for the following components: NT-Pro BNP 3,931 (*) All other components within normal limits Narra (more content not included)... Normal [facility] EKG 12-leadon 02-13-2025 Atrial Rate 101 BPM [facility] P [place] 65 degrees [facility] P-R Interval 148 ms [facility] Q-T Interval 368 ms [facility] QRS Duration 82 ms [facility] QTC Calculation (Bezet) 477 ms [facility] R [place] -11 degrees [facility] T [place] 65 degrees [facility] Ventricular Rate 101 BPM [facility] Sinus tachycardia Minimal voltage criteria for LVH, may be normal variant ( R in aVL ) Nonspecific ST and T wave abnormality Abnormal ECG ECG Cart Interpretation see physician note for interpretation. Confirmed by Yajaira Hernandez ([id number]) on 02/13/2025 8:27:59 PM MUSE [facility] Influenza virus A and B RNA and SARS-CoV-2 (COVID-19) N gene panel CATRINA+probe (Resp)Ordered By: Christine Dahl on 02-13-2025 FLUAV RNA CATRINA+probe Ql (Unsp spec) Not detected Not Detected [facility] FLUBV RNA CATRINA+probe Ql (Unsp spec) Not detected Not Detected [facility] Interpretation and review of laboratory results Normal [facility] SARS-CoV-2 (COVID-19) RNA CATRINA+probe Ql (Resp) Not detected Not Detected [facility] NT PRO BNPon 02-13-2025 Natriuretic peptide B (Bld) [Mass/Vol] 3931 pg/mL High 0-300 [facility] Comment on above: Order Comment: Resul ts of PCR testing for stool pathogens must be taken into clinical context when making treatment decisions. Most gastrointestinal infections due to common bacterial and viral causes are self-limited in nature and do not require antimicrobial therapy. The use of antimicrobial therapy must be carefully weighed against unintended and potentially harmful consequences. The role of antimicrobial therapy depends on the implicated pathogen. In general, antimicrobial agents are only used to treat parasitic infections as well as select bacterial infections. Performed By: #### L [id number] #### [facility] [address] [address] Maurice Coello M.D. [id number] Natriuretic peptide.B prohor curly N-Terminal [Mass/Vol]on 02-13-2025 Pride Study Cut-offs Rule In: < /= 50 Years >450 pg/mL 51 Years - 75 Years >900 pg/mL 76 Years - 99 Years >1800 pg/mL Rule Out: All patients <300 pg/mL [facility] No Panel Informationon 02-13 Extra Tube Hold for add-ons. [facility] Comment on above: Auto resulted. [facility] Interpretation and review of laboratory results Abnormal [facility] POC VENOUS BLOOD GAS PANEL-P ULM - RALSon 02-13-2025 BASE EXCESS, VENOUS 3.4 High -2.0-2.0 [facility] Comment on above: Performed By: #### L [id number] #### [facility] [address] [place], [place] [address] Maurice Coello M.D. [id number] CALCIUM IONIZED 4.6 mg/dL Normal 4.5-5.3 [facility] Comment on above: Performed By: #### L [id number] #### [facility] [address] [address] Maurice Coello M.D. [id number] CARBOXYHEMOGLOBIN 2.0 % of total Hb High <=1.5 [facility] Comment on above: Result Comment: Refe rence Ranges: [place] Non-smokers: <1.5% Smokers: 1.5-5.0% Heavy Smokers: 5.0-9.0% Performed By: #### L [id number] #### [facility] [address] [address] Maurice Coello M.D. [id number] Chloride [Moles/Vol] 95 mmol/L Low 98-108 [facility] Comment on above: Performed By: #### L [id number] #### LAB [address] [address] Maurice Coello M.D. [id number] FIO2 21 Normal [facility] Comment on above: Performed By: #### L [id number] #### [facility] [address] [address] Maurice Coello M.D. [id number] Glucose [Mass/Vol] 124 mg/dL High 65-99 [facility] Comment on above: Performed By: #### L [id number] #### [facility] [address] [address] Maurice Coello M.D. [id number] HCO3 (Bld) [Moles/Vol] 30.7 mmol/L High 24.0-28.0 [facility] Comment on above: Performed By: #### L [id number] #### [facility] [address] [address] Maurice Coello M.D. [id number] Hematocrit (Bld) [Volume fraction] 42.1 % Normal 36.0-46.0 [facility] Comment on above: Performed By: #### L [id number] #### [facility] [address] [address] Maurice Coello M.D. [id number] Hemoglobin (Bld) [Mass/Vol] 13.7 g/dL Normal 12.0-16.0 [facility] Comment on above: Performed By: #### L [id number] #### [facility] [address] [address] Maurice Coello M.D. [id number] LACTIC ACID, WHOLE BLOOD 1.5 mmol/L Normal 0.6-2.0 [facility] Comment on above: Performed By: #### L [id number] #### LAB [address] [address] Maurice Coello M.D. [id number] METHEMOGLOBIN < Normal 0.0-2.0 [facility] Comment on above: Performed By: #### L [id number] #### LAB [address] [address] Maurice Coello M.D. [id number] O2HB 53.3 % Normal No established reference range [facility] Comment on above: Performed By: #### L [id number] #### LAB [address] [address] Maurice Coello M.D. [id number] Oxygen saturation in Blood 54.8 % Normal 40.0-70.0 [facility] Comment on above: Performed By: #### L [id number] #### LAB [address] [address] Maurice Coello M.D. [id number] PCO2 VENOUS 57.1 mm Hg High 41.0-51.0 [facility] Comment on above: Performed By: #### L [id number] #### [facility] [address] [address] Maurice Coello M.D. [id number] PH VENOUS 7.34 Normal 7.32-7.42 [facility] Comment on above: Performed By: #### L [id number] #### [facility] [address] [address] Maurice Coello M.D. [id number] PO2 VENOUS 30 mm Hg Normal 25-40 [facility] Comment on above: Performed By: #### L [id number] #### [facility] [address] [place], [place] [address] Maurice Coello M.D. [id number] Potassium [Moles/Vol] 4.3 mmol/L Normal 3.5-5.1 [facility] Comment on above: Performed By: #### L [id number] #### [facility] [address] [place], [place] [address] Maurice Coello M.D. [id number] Sodium [Moles/Vol] 137 mmol/L Normal 135-145 [facility] Comment on above: Performed By: #### L [id number] #### [facility] [address] [place], [place] [address] Maurice Coello M.D. [id number] SPECIMEN SOURCE RADIANCE Not specified Normal [facility] Comment on above: Performed By: #### L [id number] #### LAB [address] [place], [place] [address] Maurice Coello M.D. [id number] POC Venous Blood Gas Panel-[facility] 02-13-2025 Base excess Calc (BldV) [Moles/Vol] 3.4 mmol/L High -2.0 - 2.0 [facility] Calcium.ionized [Mass/Vol] 4.6 mg/dL 4.5 - 5.3 mg/dL [facility] Carboxyhemoglobin (BldA) [Mass fraction] 2 High NINF [facility] Comment on above: Reference Ranges: [facility] Non-smokers: <1.5% Smokers: 1.5-5.0% Heavy Smokers: 5.0-9.0% CO2 (BldV) [Partial pressure] 57.1 mm[Hg] High [facility] Glucose post fast [Mass/Vol] 124 mg/dL High 65 - 99 mg/dL [facility] Hematocrit (BldA) [Volume fraction] 42.1 % 36.0 - 46.0 % [facility] Inhaled oxygen concentration 21 % [facility] Interpretation and review of laboratory results Abnormal [facility] Lactate [Moles/Vol] 1.5 mmol/L 0.6 - 2. 0 mmol/L [facility] Methemoglobin (BldA) [Mass fraction] % 0.0 - 2.0 % [facility] Oxygen (BldV) [Partial pressure] 30 mm[Hg] [facility] Oxygen saturation in Venous blood 54.8 % 40.0 - 70.0 % [facility] Oxyhemoglobin (BldA) [Mass fraction] 53.3 % -100.0 - 101.0 % [facility] pH (BldV) 7.34 [pH] 7.32 - 7.42 [facility] Specimen source Nom (Unsp spec) Not specified [facility] TROPONIN X 2 (NOW AND REPEAT IN 2 HOURS)on 02-13-2025 TROPONIN T DELTA % NG/L -16 % Normal <20% of Baseline Troponin [facility] Comment on above: Performed By: #### L [id number] #### LAB [address] [address] Maurice Coello M.D. [id number] TROPONIN T DELTA CHANGE INTERPRETATION Probable non-acute cardiac injury or late presentation of acute injury. [facility] Comment on above: Performed By: #### L [id number] #### [facility] [address] [address] Maurice Coello M.D. [id number] TROPONIN T NG/L 83 ng/L Off scale high <=14 [facility] Comment on above: Performed By: #### L [id number] #### LAB [address] [address] Maurice Coello M.D. [id number] BASELINE TROPONIN T NG/L 99 ng/L Off scale high <=14 [facility] Comment on above: Performed By: #### [id number] #### LAB [address] [address] Maurice Coello M.D. [id number] TROPONIN T INTERPRETATION Possible acute cardiac injury. [facility] Comment on above: Performed By: #### 4 [id number] ####[facility] [address] [address] Maurice Coello M.D. [id number] BASELINE TROPONIN T NG/L 100 ng/L Off scale high <=14 [facility] Comment on above: Performed By: #### 4 [id number] #### LAB [address] [address] Maurice Coello M.D. [id number] TROPONIN T INTERPRETATION Possible acute cardiac injury. Normal [facility] Comment on above: Performed By: #### 4 [id number] #### LAB [address] [place], [place] [address] Maurice Coello M.D. [id number] Troponin x 2 (Now and Repeat in 2 hours)on 02-13-2025 Interpretation and review of laboratory results Abnormal [facility] Troponin T 99 ng/L Critically high NINF - 14 ng/L [facility] Troponin T Interpretation Possible acute cardiac injury. [facility] Troponin x 2 (Now and Repeat in 2 hours)Ordered By: Zaire Sparrow on 02-13-2025 Interpretation and review of laboratory results Abnormal [facility] Troponin T 100 ng/L Critically high NINF - 14 ng/L [facility] Troponin T Interpretation Possible acute cardiac injury. [facility] URINALYSISon 02-13-2025 AMORPHOUS CRYSTALS Few Abnormal None Seen , Rare [facility] Comment on above: Order Comment: [facility] has implemented the eGFR calculation approach that does not have a coefficient for race that conforms to the NKF-ASN Task Force Recommendations. Performed By: #### 4 [id number] #### LAB [address] [id number] Maurice Coello M.D. [id number] BACTERIA, URINE None Seen Normal None Seen [facility] Comment on above: Order Comment: [facility] has implemented the eGFR calculation approach that does not have a coefficient for race that conforms to the NKF-ASN Task Force Recommendations. Performed By: #### 4 [id number] #### LAB [address] [id number] Maurice Coello M.D. [id number] BILIRUBIN, URINE Negative Normal Negative [facility] Comment on above: Order Comment: [facility] has implemented the eGFR calculation approach that does not have a coefficient for race that conforms to the NKF-ASN Task Force Recommendations. Performed By: #### 4 [id number] #### [facility] [address] [id number] Maurice Coello M.D. [id number] BLOOD, URINE Large Abnormal Negative [facility] Comment on above: Order Comment: [facility] has implemented the eGFR calculation approach that does not have a coefficient for race that conforms to the NKF-ASN Task Force Recommendations. Performed By: #### 4 [id number] #### LAB [address] [address] Maurice Coello M.D. [id number] Clarity (U) Clear Normal Clear [facility] Comment on above: Order Comment: [facility] has implemented the eGFR calculation approach that does not have a coefficient for race that conforms to the NKF-ASN Task Force Recommendations. Performed By: #### 4 [id number] #### LAB [address] [address] Maurice Coello M.D. [id number] Color (U) Colorless Normal Colorless, Yellow [facility] Comment on above: Order Comment: [facility] has implemented the eGFR calculation approach that does not have a coefficient for race that conforms to the NKF-ASN Task Force Recommendations. Performed By: #### 4 [id number] #### LAB [address] [address] Maurice Coello M.D. [id number] Glucose Ql (U) Negative Normal [facility] Comment on above: Order Comment: [facility] has implemented the eGFR calculation approach that does not have a coefficient for race that conforms to the NKF-ASN Task Force Recommendations. Performed By: #### 4 [id number] #### LAB [address] [address] Maurice Coello M.D. [id number] Ketones Ql (U) Negative Normal [facility] Comment on above: Order Comment: [facility] has implemented the eGFR calculation approach that does not have a coefficient for race that conforms to the NKF-ASN Task Force Recommendations. Performed By: #### [id number] #### LAB [address] [address] Maurice Coello M.D. [id number] Leukocyte esterase Test strip Ql (U) Negative Normal [facility] Comment on above: Order Comment: [facility] has implemented the eGFR calculation approach that does not have a coefficient for race that conforms to the NKF-ASN Task Force Recommendations. Performed By: #### [id number] #### MH LAB [address] [address] Maurice Coello M.D. [id number] NITRITE, URINE Negative Normal Negative [facility] Comment on above: Order Comment: [facility] has implemented the eGFR calculation approach that does not have a coefficient for race that conforms to the NKF-ASN Task Force Recommendations. Performed By: #### [id number] #### LAB [address] [address] Maurice Coello M.D. [id number] pH (U) 5.5 [pH] Normal 5.0-7.0 [facility] Comment on above: Order Comment: [facility] has implemented the eGFR calculation approach that does not have a coefficient for race that conforms to the NKF-ASN Task Force Recommendations. Performed By: #### 4 [id number] #### LAB [address] [address] Maurice Coello M.D. [id number] Protein (U) [Mass/Vol] 30 mg/dL Abnormal Negative [facility] Comment on above: Order Comment: [facility] has implemented the eGFR calculation approach that does not have a coefficient for race that conforms to the NKF-ASN Task Force Recommendations. Result Comment: Fals e positive results may occur in urines with large amounts of hemoglobin, pH greater than 8.0, contrast medium, or disinfectants including ammonium compounds. Performed By: #### 4 [id number] #### LAB [address] [address] Maurice Coello M.D. [id number] Specific gravity (U) [Rel density] 1.016 Normal 1.005-1.025 [facility] Comment on above: Order Comment: [facility] has implemented the eGFR calculation approach that does not have a coefficient for race that conforms to the NKF-ASN Task Force Recommendations. Performed By: #### 4 [id number] #### MH LAB [address] [id number] Maurice Coello M.D. [id number] SQUAMOUS EPITHELIAL < Normal 0-4 [facility] Comment on above: Order Comment: [facility] has implemented the eGFR calculation approach that does not have a coefficient for race that conforms to the NKF-ASN Task Force Recommendations. Performed By: #### [id number] #### MH LAB [address] [address] Maurice Coello M.D. [id number] TRANSITIONAL EPITHELIAL < Normal 0-1 [facility] Comment on above: Order Comment: [facility] has implemented the eGFR calculation approach that does not have a coefficient for race that conforms to the NKF-ASN Task Force Recommendations. Performed By: #### [id number] #### LAB [address] [address] Maurice Coello M.D. [id number] UROBILINOGEN, URINE <2.0 Normal <2.0 [facility] Comment on above: Order Comment: [facility] has implemented the eGFR calculation approach that does not have a coefficient for race that conforms to the NKF-ASN Task Force Recommendations. Performed By: #### 4 [id number] #### LAB [address] [address] Maurice Coello M.D. [id number] WBC LM.HPF (Urine sed) [#/Area] 1 /[HPF] Normal 0-5 [facility] Comment on above: Order Comment: [facility] has implemented the eGFR calculation approach that does not have a coefficient for race that conforms to the NKF-ASN Task Force Recommendations. Performed By: #### [id number] #### MH LAB [address] [address] Maurice Coello M.D. [id number] URINE AEROBIC CULTUREon 02-04 URINE AEROBIC CULTURE URINE CULTURE < 10,000 CFU/mL of normal urogenital microbiota Normal [facility] Comment on above: Performed By: #### L [id number] #### MH LAB [address] [place], [place] [address] Maurice Coello M.D. [id number] UrinalysisOrdered By: Bhumi Teixeira on 02-13-2025 Bacteria Auto Ql (U) None Seen None Se en /hpf [facility] Bilirubin Ql (U) Negative Negative [facility] th Clarity Refractometry automated (U) Clear Clear [facility] Color (U) Colorless Colorless, Yellow [facility] Crystals.amorphous Computer assisted (U) [#/Area] Few Abnormal None Seen, Rare /hpf [facility] Epithelial cells.squamous Auto (Urine sed) [#/Area] [facility] Glucose Auto test strip (U) [Mass/Vol] Negative Negative mg/dL [facility] Hemoglobin Auto test strip Ql (U) Large Abnormal Negative [facility] Interpretation and review of laboratory results Abnormal [facility] Ketones (U) [Mass/Vol] Negative Negat radha mg/dL [facility] Leukocyte esterase Auto test strip Ql (U) Negative Negative [facility] Nitrite Auto test strip Ql (U) Negative Negative [facility] pH (U) 5.5 [pH] 5.0 - 7.0 [facility] Protein (U) [Mass/Vol] 30 mg/dL Abnormal Negative [facility] Comment on above: False positive resul ts may occur in urines with large amounts of hemoglobin, pH greater than 8.0, contrast medium, or disinfectants including ammonium compounds. Specific gravity (U) [Rel density] 1.016 1.005 - 1.025 [facility] Transitional cells Computer assisted (U) [#/Area] [facility] Urobilinogen (U) [Mass/Vol] mg/dL NINF - 2.0 mg/dL [facility] WBC Auto (Urine sed) [#/Area] 1 [facility] Microscopic examinat ion is performed on all urinalysis samples and only positive findings are reported. The test for blood on the chemical analytic portion of urinalysis may also be positive due to hemoglobinuria and myoglobinuria and if red blood cells are present they are quantified by microscopic examination. [facility] (obtain and perform)on 0 02-13-2025 [facility] XR CHEST PA/APon 02-13-2025 XR CHEST PA/AP EXAMINATION: XR CHEST PA/AP 02/13/2025 4:15 pm HISTORY: ORDERING SYSTEM PROVIDED HISTORY: SOB, TECHNOLOGIST PROVIDED HISTORY: Illness/Other Reason for exam: SOB Cancer History: unknown Surgery, RadiationHistory: cholecystectomy, hysterectomy, oophrectomy, left knee replacement Encounter Type: Initial Additional signs and symptoms: n ORDERING SYSTEM PROVIDED DIAGNOSIS CODES: COMPARISON: Chest radiographs dated 09/21/2024 FINDINGS: Single frontal view. The lungs are well expanded without pneumothorax, pleural effusion, or focal consolidation. Multiple small granulomas within the right upper lung. The cardiac silhouette is not enlarged. IMPRESSION: No acute cardiopulmonary abnormality. Workstation ID: [id number] Dictated by: JASON PANCHAL on MonFeb 13, 2025 5:20:06 PM EDT Transcribed by: JASON PANCHAL on MonFeb 13, 2025 5:20:06 PM EDT Finalized by: JASON PANCHAL on MonFeb 13, 2025 5:20:06 PM EDT [facility] Comment on above: Order Comment: Resul ts of PCR testing for stool pathogens must be taken into clinical context when making treatment decisions. Most gastrointestinal infections due to common bacterial and viral causes are self-limited in nature and do not require antimicrobial therapy. The use of antimicrobial therapy must be carefully weighed against unintended and potentially harmful consequences. The role of antimicrobial therapy depends on the implicated pathogen. In general, antimicrobial agents are only used to treat parasitic infections as well as select bacterial infections. XR Chest PA and Abdomen APon 02-13-2025 No acute cardiopulmonary abnormality. Workstation ID: [id number] [place] EXAMINATION: XR CHEST PA/AP 02/13/2025 4:15 pm HISTORY: ORDERING SYSTEM PROVIDED HISTORY: SOB, TECHNOLOGIST PROVIDED HISTORY: Illness/Other Reason for exam: SOB Cancer History: unknown Surgery, RadiationHistory: cholecystectomy, hysterectomy, oophrectomy, left knee replacement Encounter Type: Initial Additional signs and symptoms: n ORDERING SYSTEM PROVIDED DIAGNOSIS CODES: COMPARISON: Chest radiographs dated 09/21/2024 FINDINGS: Single frontal view. The lungs are well expanded without pneumothorax, pleural effusion, or focal consolidation. Multiple small granulomas within the right upper lung. The cardiac silhouette is not enlarged. [place] Jason Panchal DO - 02/13/2025 EXAMINATION: XR CHEST PA/AP 02/13/2025 4:15 pm HISTORY: ORDERING SYSTEM PROVIDED HISTORY: SOB, TECHNOLOGIST PROVIDED HISTORY: Illness/Other Reason for exam: SOB Cancer History: unknown Surgery, RadiationHistory: cholecystectomy, hysterectomy, oophrectomy, left knee replacement Encounter Type: Initial Additional signs and symptoms: n ORDERING SYSTEM PROVIDED DIAGNOSIS CODES: COMPARISON: Chest radiographs dated 09/21/2024 FINDINGS: Single frontal view. The lungs are well expanded without pneumothorax, pleural effusion, or focal consolidation. Multiple small granulomas within the right upper lung. The cardiac silhouette is not enlarged. IMPRESSION: No acute cardiopulmonary abnormality. Workstation ID: [id number] [facility] Radiology Study observation (narrative) [facility] XR Chest PA and Abdomen APOr dered By: Jason Panchal on 02-13-2025 [facility] Work Phone: Magnetic resonance imaging r eportOrdered By: Dev Escobar on 02-04-2025 Study report [facility] Imaging Services [address] [place] [address] Spine Cervical (Routine) MR#: [id number] Acct: [id number] Name: RADHA SHAFER ANIL Rep #: [id number] : 1960 F 64 From: Pet er Peer DO PCP: Dr. Jennifer Gordon MD Status: REG CLI Study:Spine Cervical (Routine) Date of Exam: 02/03/25 Exam# [id number] Ordering Dr: Paul Whitehead PROCEDURE: SPINE CERVICAL (ROUTINE) 02/03/2025 REASON FOR EXAM: PAIN TECHNIQUE: Noncontrast cervical spine MRI. Coronal and Sagittal reconstruction series were provided. COMPARISON: None. FINDINGS: VERTEBRAE: No acute fracture or pathologic marrow replacement. VERTEBRAL ALIGNMENT: Normal, including the craniocervical junction and cervicothoracic junction. No spondylolisthesis. There is preservation of the normal cervical lordosis. CERVICAL SPINAL CORD: Unremarkable in signal and morphology. C2/C3: Normal disc height and morphology. Normal spinal canal and neuroforamina. C3/C4: Normal disc height and morphology. Bilateral facet joint hypertrophy and disc osteophyte produces mild bilateral foraminal stenosis. C4/C5: Loss of disc height. Broad-based disc osteophyte formation produces moderately severe right foraminal narrowing and moderate left foraminal narrowing. No significant central stenosis. C5/C6: Loss of disc height. Disc-osteophyte formation produces mild central and moderate bilateral foraminal stenosis. C6/C7: Mild loss disc height. Disc-osteophyte formation present. Mild central and moderate left foraminal stenosis. C7/T1: Normal disc height and morphology. Normal spinal canal and neuroforamina. NECK SOFT TISSUES: No prevertebral soft tissue swelling. There is no cervical adenopathy. MRI/Spine Cervical (Routine) IMPRESSION: Degenerative disc disease and cervical spondylosis with multilevel central and foraminal stenoses as above. Findings most severe at the C5-6 level. Reading Location[facility] CC: DANIEL Archer; Dr. Jennifer Gordon MD ~ Search Engine Optimization Manager: Signed [facility] Spine Cervical (Routine)on 0 02-03-2025 Spine Cervical (Routine) [facility] Imaging Services [address] [place] [id number] Spine Cervical (Routine) MR#: [id number] Acct: [id number] Name: RADHA SHAFER Rep #: [id number] : 1960 F 64 From: Dev Escobar DO PCP: Dr. Jennifer Gordon MD Status: REG CLI Study: Spine Cervical (Routine) Date of Exam: Exam# [id number] Ordering Dr: Hui Whitehead PROCEDURE: SPINE CERVICAL (ROUTINE) 02/03/2025 REASON FOR EXAM: PAIN TECHNIQUE: Noncontrast cervical spine MRI. Coronal and Sagittal reconstruction series were provided. COMPARISON: None. FINDINGS: VERTEBRAE: No acute fracture or pathologic marrow replacement. VERTEBRAL ALIGNMENT: Normal, including the craniocervical junction and cervicothoracic junction. No spondylolisthesis. There is preservation of the normal cervical lordosis. CERVICAL SPINAL CORD: Unremarkable in signal and morphology. C2/C3: Normal disc height and morphology. Normal spinal canal and neuroforamina. C3/C4: Normal disc height and morphology. Bilateral facet joint hypertrophy and disc osteophyte produces mild bilateral foraminal stenosis. C4/C5: Loss of disc height. Broad-based disc osteophyte formation produces moderately severe right foraminal narrowing and moderate left foraminal narrowing. No significant central stenosis. C5/C6: Loss of disc height. Disc-osteophyte formation produces mild central and moderate bilateral foraminal stenosis. C6/C7: Mild loss disc height. Disc-osteophyte formation present. Mild central and moderate left foraminal stenosis. C7/T1: Normal disc height and morphology. Normal spinal canal and neuroforamina. NECK SOFT TISSUES: No prevertebral soft tissue swelling. There is no cervical adenopathy. MRI/Spine Cervical (Routine) IMPRESSION: Degenerative disc disease and cervical spondylosis with multilevel central and foraminal stenoses as above. Findings most severe at the C5-6 level. Reading Location: [facility] CC: DANIEL Archer; Dr. Jennifer Gordon MD Search Engine Optimization Manager: Signed Normal [facility] Orthopedic Visit Reporton Orthopedic Visit Report [facility] [address] [place] [address] OFFICE VISIT Date of Service: 01/21/25 MR#: [id number] Acct: [id number] Name: RADHA SHAFER Rep #: [id number] : 1960 Provider: Dr. Cary shah MD Age/Sex: 64/F Location: [facility] Status: Signed Intake Vital Signs 01/06/25 10:18 Height 5 ft 5 in Weight: 225 lb 6 oz BMI 37.5 Intake Visit Reasons: RIGHT SHOULDER Chief Complaint: right shoulder pain Accompanied by: Self Is patient in pain?: Yes Pain scale (1-10): 7 Allergies Penicillins Allergy (Unknown, Verified 01/21/25 13:07) Unknown Medications ???Medication ???Instructions ???Recorded ???Confirmed ???Type Disability Placard #1 ea 02/07/23 01/21/25 Rx aspirin 81 mg tablet,delayed 81 mg PO DAILY heart health 01/21/25 History release (Adult Low Dose Aspirin) cholecalciferol (vitamin D3) 50 50 mcg PO DAILY vitamin 04/18/23 0 01/21/25 History mcg (2,000 unit) capsule ferrous sulfate 325 mg (65 mg 325 mg PO DAILY 04/18/23 01/21/25 History iron) tablet levocarnitine 330 mg tablet 330 mg PO TID vitamin 04/18/23 History compr.stocking,thigh,sh ort,lrg #24 ea 02/29/24 01/21/25 Rx metoprolol tartrate 100 mg tablet 100 mg PO BID blood pressure #180 06/06/24 01/21/25 Rx tabs nifedipine 30 mg tablet,extended 30 mg PO DAILY blood pressure #90 06/06/24 01/21/25 Rx release tabs triheptanoin 8.3 kcal/mL oral 166 kcal PO BID 06/12/24 01/21/25 History liquid (Dojolvi) lisinopril 20 mg tablet 20 mg PO QDAY 07/02/24 01/21/25 Hi story doxepin 100 mg capsule 100 mg PO QHS #30 caps 08/27/24 Rx lovastatin 10 mg tablet 10 mg PO QPM cholesterol #90 tabs 10/17/24 01/21/25 Rx tizanidine 4 mg tablet See Rx Instructions .Route 4 01/21/25 Rx .COMPLEX spasms #150 tabs fluticasone fur. 200 mcg-umeclid 1 inh inhalation DAILY breathing 0 11/07/24 01/21/25 Rx 62.5 mcg-vilant 25 mcg #3 ea inhalat.powder (Trelegy Ellipta) omeprazole 40 mg capsule,delayed 40 mg PO DAILY for acid reflux #90 11/22/24 01/21/25 Rx release caps duloxetine 60 mg capsule,delayed 60 mg PO DAILY mental health #90 0 11/29/24 01/21/25 Rx release caps levothyroxine 175 mcg tablet 175 mcg PO DAILY thyroid #90 tabs 11/29/24 01/21/25 Rx oxycodone-acetaminophen 5 mg-325 1 tab PO Q8H PRN pain 5 days #12 0 01/01/25 01/21/25 Rx mg tablet (Percocet) tabs vitamin E (dl, acetate) 45 mg (100 45 mg PO QDAY 01/06/25 01/21/25 History unit) capsule Have you fallen in the past year?: Yes (January 2025) PFS Medical History Right shoulder pain Myalgia Neck pain Low back pain Anxiety Depression Osteoporosis Smoker On home oxygen therapy COPD (chronic obstructive pulmonary disease) Hypertension Hx of ventricular tachycardia COPD (chronic obstructive pulmonary disease) Chronic hypoxemic respiratory failure Polyclonal gammopathy Bence Davila protein present in urine Obesity Nonsustained ventricular tachycardia Coronary artery disease Syncope Palpitations Thyroid cancer Syncope and collapse Essential hypertension Fatigue Cervical radiculopathy Smoking greater than 30 pack years Hypoxia Chronic diarrhea Recurrent falls Fatty liver FELISA (obstructive sleep apnea) CKD (chronic kidney disease) stage 4, GFR 15-29 ml/min Acquired hypothyroidism History of vitamin D deficiency Peripheral arterial disease Vertigo Polyneuropathy Insomnia Carnitine palmitoyltransferase II deficiency Vision problems Thyroid cancer GERD (gastroesophageal reflux disease) Osteoarthritis Hypothyroid Neuropathy Kidney disease Hypertension History of emotional problems Chronic bronchitis Surgical History History of cholecystectomy Cataract extraction status History of surgical procedure H/O thyroidectomy S/P cholecystectomy History of surgical procedure H/O wrist surgery History of repair of rotator cuff History of hysterectomy Hx of total knee replacement Family History Mother CVA (cerebral vascular accident) Heart disease Arthritis Lupus Father Myocardial infarction Hypertension Brother Colon cancer Brother Colon cancer Brother Cancer stomach Sister Seizures Grandfather Myocardial infarction Grandmother Myocardial infarction Social History household members: none housing: apartment current occupational status: unemployed Smoking Status: Former smoker quit date: 07/10/13 pack-years: 20 Tobacco: How many years used: 20 Electronic Cigarette Use: not used second hand ex (more content not included)... Normal [facility] Shoulder min 2 Viewson 01-21 Shoulder min 2 Views [facility] Imaging Services [address], [place] [id number] Shoulder min 2 Views MR#: [id number] Acct: [id number] Name: RADHA SHAFER Rep #: [id number] : 1960 F 64 From: Clarence gama MD PCP: Dr. Jennifer Gordon MD Status: DEP AMB Study: Shoulder min 2 Views Date of Exam: 01/21/25 Exam# [id number] Ordering Dr: Cary Jacobsen MD PROCEDURE: SHOULDER MIN 2 VIEWS 01/21/2025 REASON FOR EXAM: PAIN, RECENT FALL TECHNIQUE: Four views of the right shoulder were obtained. FINDINGS: RIGHT SHOULDER: A metallic anchor is seen overlying the lateral aspect of the humeral head in keeping with prior rotator cuff surgery. Mild degree of joint space narrowing of the glenohumeral joint. Calcified granulomas seen in the peripheral lateral aspect of the right upper lobe. RAD/Shoulder min 2 Views IMPRESSION: Findings suggestive of prior rotator cuff surgery. Mild degenerative changes. No acute abnormality is seen. Reading Location: [place] [address] CC: Dr. Jennifer Gordon MD; Dr. Cary Jacobsen MD Search Engine Optimization Manager: Signed Normal [facility] Magnetic resonance imaging r eportOrdered By: Vaibhav Guevara on 01-14-2025 Study report [facility] Imaging Services [address] [place] [address] Spine Lumbar (Routine) MR#: [id number] Acct: [id number] Name: RADHA SHAFER Rep #: [id number] : 1960 F 64 From: Shavonne Guevara MD PCP: Dr. Jennifer Gordon MD Status: REG CLI Study:Spine Lumbar (Routine) Date of Exam: 01/13/25 Exam# [id number] Ordering Dr: Rusty Dozier MD PROCEDURE: SPINE LUMBAR (ROUTINE) (MRISPL), 01/13/2025 REASON FOR EXAM: PATIENT HAS LOW BACK PAIN AND IMPAIRED MOBILITY TECHNIQUE: Multisequence multiplanar MR of the lumbar spine was performed without IV contrast. COMPARISON: None FINDINGS: Vertebral body heights are preserved. Degenerative type marrow signal changes, greatest from L1-L3. Trace likely degenerative retrolisthesis at L1-L2 and L2-L3. Mild lumbar levoscoliosis with apex at L2-L3. Conus medullaris terminates normally at the L1-L2 level. Crowding of nerve rootsof the cauda equina related to the below.. T12-L1: Disc bulging, greatest in the lateral regions with disc/osteophyte complexes. No significant spinal canal or foraminal stenosis. L1-2: Frltjapw-my-sxceza loss of disc height with diffuse disc bulging and anterior disc/osteophyte complex. No significant spinal canal or foraminal stenosis. L2-3: Diffuse disc bulging, asymmetric to the right with a superimposed right lateral disc protrusion, with zbelpkij-yu-cnslfy loss of disc height. Relative narrowing of the right lateral recess. Mild facet arthropathy. Mild foraminal stenoses bilaterally. L3-4: Prominent diffuse disc bulging with moderate loss of disc height and lateral/anterior disc/osteophyte complexes. Small superimposed central disc protrusion. Sdqtujut-ip-vmmeoq spinal canal stenosis with near-complete effacement of CSF. Facet arthropathy. Mild ligamentum flavum hypertrophy. Moderate right and mild/moderate left foraminal stenoses. Narrowing of bilateral lateral recesses. L4-5: Mwmepucg-hd-pvzmpo loss of disc height with diffuse disc bulging, asymmetric to the right. Small superimposed central and left paracentral as well as right lateral disc protrusions. Facet arthropathy. Mild ligamentum flavum hypertrophy. Xttlgvyv-qg-agnckw spinal canal stenosis with virtually complete effacement of CSF. Hgaurcbb-km-vfhhth right and moderate left foraminal stenoses. Effacement of luzdk-cptcusc-ymuc-left lateral recesses L5-S1: Bulging with superimposed left mild diffuse disc foraminal and lateral disc protrusion contacting the exiting nerve root. Mild ligamentum flavum hypertrophy. No significant focal spinal canal stenosis. Facet arthropathy. Vlwhawwm-eb-xwtafm left foraminal stenosis. Other: Focal narrowing of the spinal canal at T10-T11, not well evaluated as this is above the field of view of axial imaging. This may be related to a synovial cyst or facet arthropathy given the configuration on sagittal images. Additional cervicothoracic spondylosis on the resources representative, not well evaluated. Mild ectasia of the abdominal aorta to 2.4 x 2.4 cm. Tiny presumed renal cysts, incompletely characterized. MRI/Spine Lumbar (Routine) IMPRESSION: 1. Multilevel spondylosis with variable both spinal canal and foraminal stenosesup to moderate/severe as detailed. 2. Additional description as above. Reading Location: [facility] CC: Dr. Jennifer Gordon MD; Dr. Rusty Dozier MD ~ Search Engine Optimization Manager: Signed [facility] Spine Lumbar (Routine)on Spine Lumbar (Routine) [facility] Imaging Services [address] [place] [address] Spine Lumbar (Routine) MR#: [id number] Acct: [id number] Name: RADHA SHAFER Rep #: [id number] : 1960 F 64 From: Vaibhav Guevara MD PCP: Dr. Jennifer Gordon MD Status: REG CLI Study: Spine Lumbar (Routine) Date of Exam: 01/13/25 Exam# [id number] Ordering Dr: Rusty Dozier MD PROCEDURE: SPINE LUMBAR (ROUTINE) (MRISPL), 01/13/2025 REASON FOR EXAM: PATIENT HAS LOW BACK PAIN AND IMPAIRED MOBILITY TECHNIQUE: Multisequence multiplanar MR of the lumbar spine was performed without IV contrast. COMPARISON: None FINDINGS: Vertebral body heights are preserved. Degenerative type marrow signal changes, greatest from L1-L3. Trace likely degenerative retrolisthesis at L1-L2 and L2-L3. Mild lumbar levoscoliosis with apex at L2-L3. Conus medullaris terminates normally at the L1-L2 level. Crowding of nerve roots of the cauda equina related to the below.. T12-L1: Disc bulging, greatest in the lateral regions with disc/osteophyte complexes. No significant spinal canal or foraminal stenosis. L1-2: Yligqfsg-op-tueirp loss of disc height with diffuse disc bulging and anterior disc/osteophyte complex. No significant spinal canal or foraminal stenosis. L2-3: Diffuse disc bulging, asymmetric to the right with a superimposed right lateral disc protrusion, with ljodekce-nj-pokeve loss of disc height. Relative narrowing of the right lateral recess. Mild facet arthropathy. Mild foraminal stenoses bilaterally. L3-4: Prominent diffuse disc bulging with moderate loss of disc height and lateral/anterior disc/osteophyte complexes. Small superimposed central disc protrusion. Hhlllavx-tr-nydkws spinal canal stenosis with near-complete effacement of CSF. Facet arthropathy. Mild ligamentum flavum hypertrophy. Moderate right and mild/moderate left foraminal stenoses. Narrowing of bilateral lateral recesses. L4-5: Cuwosmtr-dn-gplicr loss of disc height with diffuse disc bulging, asymmetric to the right. Small superimposed central and left paracentral as well as right lateral disc protrusions. Facet arthropathy. Mild ligamentum flavum hypertrophy. Cmjhpvrw-iv-ejgopa spinal canal stenosis with virtually complete effacement of CSF. Nhpoyzac-ws-jzwsdc right and moderate left foraminal stenoses. Effacement of csqzm-hofvhns-mcsu-left lateral recesses L5-S1: Bulging with superimposed left mild diffuse disc foraminal and lateral disc protrusion contacting the exiting nerve root. Mild ligamentum flavum hypertrophy. No significant focal spinal canal stenosis. Facet arthropathy. Mipcwcsl-pu-ejahbw left foraminal stenosis. Other: Focal narrowing of the spinal canal at T10-T11, not well evaluated as this is above the field of view of axial imaging. This may be related to a synovial cyst or facet arthropathy given the configuration on sagittal images. Additional cervicothoracic spondylosis on the resources representative, not well evaluated. Mild ectasia of the abdominal aorta to 2.4 x 2.4 cm. Tiny presumed renal cysts, incompletely characterized. MRI/Spine Lumbar (Routine) IMPRESSION: 1. Multilevel spondylosis with variable both spinal canal and foraminal stenoses up to moderate/severe as detailed. 2. Additional description as above. Reading Location: [id number] CC: Dr. Jennifer Gordon MD; Dr. Rusty Dozier MD Search Engine Optimization Manager: Signed Normal [facility] Cerv Spine 4 or 5 Viewson Cerv Spine [address] [facility] Imaging Services [address] [place] [id number] Cerv Spine 4 or 5 Views MR#: [id number] Acct: [id number] Name: RADHA SHAFER Rep #: [id number] : 1960 F 64 From: Vaibhav Kumar MD PCP: Dr. Jennifer Gordon MD Status: DEP AMB Study: Cerv Spine 4 or 5 Views Date of Exam: 01/06/25 Exam# [id number] Ordering Dr: Hui Whitehead EXAM: XR Cervical Spine, 4 or 5 Views CLINICAL INDICATION: TECHNIQUE: Frontal, lateral and bilateral oblique views of the cervical spine. COMPARISON: No relevant prior studies available. FINDINGS: VERTEBRAE: Mild endplate degenerative changes and disc disease of C3-C7. Normal alignment. No acute fracture. No significant dynamic instability. DISC SPACES: No acute findings. No significant narrowing. SOFT TISSUES: Unremarkable. RAD/Cerv Spine 4 or 5 Views IMPRESSION: No acute fracture. No significant dynamic instability. Reading Location: [facility] CC: DANIEL Archer; Dr. Jennifer Gordon MD Search Engine Optimization Manager: Signed Normal [facility] Orthopedic Visit Reporton Orthopedic Visit Report [facility] [address] [place] [address] [place] [address] OFFICE VISIT Date of Service: 01/06/25 MR#: [id number] Acct: [id number] Name: RADHA SHAFER Rep #: [id number] : 1960 Provider: DANIEL Archer Age/Sex: 64/F Location: [facility] [place].RYLAN Status: Signed Intake Vital Signs 12/26/24 11:24 01/01/25 15:33 01/06/25 10:18 Height 5 ft 5 in 5 ft 5 in 5 ft 5 in Weight: 225 lb 6 oz BMI 37.5 Intake Visit Reasons: CERVICAL SPINE Chief Complaint: Cervical Spine Pain Accompanied by: Self Is patient in pain?: Yes Pain scale (1-10): 8 Allergies Penicillins Allergy (Unknown, Verified 01/06/25 10:19) Unknown Medications ???Medication ???Instructions ???Recorded ???Confirmed ???Type Disability Rogelioard #1 ea 02/07/23 10/16/24 Rx aspirin 81 mg tablet,delayed 81 mg PO DAILY heart health 01/06/25 History release (Adult Low Dose Aspirin) cholecalciferol (vitamin D3) 50 50 mcg PO DAILY vitamin 04/18/23 0 01/06/25 History mcg (2,000 unit) capsule ferrous sulfate 325 mg (65 mg 325 mg PO DAILY 04/18/23 01/06/25 History iron) tablet levocarnitine 330 mg tablet 330 mg PO TID vitamin 04/18/2301/28 History compr.stocking,thigh,sh ort,lrg #24 ea 02/29/24 10/16/24 Rx metoprolol tartrate 100 mg tablet 100 mg PO BID blood pressure #180 06/06/24 01/06/25 Rx tabs nifedipine 30 mg tablet,extended 30 mg PO DAILY blood pressure #90 06/06/24 01/06/25 Rx release tabs triheptanoin 8.3 kcal/mL oral 166 kcal PO BID 06/12/24 01/06/25 History liquid (Dojolvi) lisinopril 20 mg tablet 20 mg PO QDAY 07/02/24 01/06/25 Hi story doxepin 100 mg capsule 100 mg PO QHS #30 caps 08/27/24 Rx lovastatin 10 mg tablet 10 mg PO QPM cholesterol #90 tabs 10/17/24 01/06/25 Rx tizanidine 4 mg tablet See Rx Instructions .Route 4 01/06/25 Rx .COMPLEX spasms #150 tabs fluticasone fur. 200 mcg-umeclid 1 inh inhalation DAILY breathing 0 11/07/24 01/06/25 Rx 62.5 mcg-vilant 25 mcg #3 ea inhalat.powder (Trelegy Ellipta) omeprazole 40 mg capsule,delayed 40 mg PO DAILY for acid reflux #90 11/22/24 01/06/25 Rx release caps duloxetine 60 mg capsule,delayed 60 mg PO DAILY mental health #90 0 11/29/24 01/06/25 Rx release caps levothyroxine 175 mcg tablet 175 mcg PO DAILY thyroid #90 tabs 11/29/24 01/06/25 Rx oxycodone-acetaminophen 5 mg-325 1 tab PO Q8H PRN pain 5 days #12 0 01/01/25 01/06/25 Rx mg tablet (Percocet) tabs vitamin E (dl, acetate) 45 mg (100 45 mg PO QDAY 01/06/25 01/06/25 History unit) capsule Have you fallen in the past year?: Yes (December 2024) PFSH Medical History Myalgia Neck pain Low back pain Anxiety Depression Osteoporosis Smoker On home oxygen therapy COPD (chronic obstructive pulmonary disease) Hypertension Hx of ventricular tachycardia COPD (chronic obstructive pulmonary disease) Chronic hypoxemic respiratory failure Polyclonal gammopathy Bence Davila protein present in urine Obesity Nonsustained ventricular tachycardia Coronary artery disease Syncope Palpitations Thyroid cancer Syncope and collapse Essential hypertension Fatigue Cervical radiculopathy Smoking greater than 30 pack years Hypoxia Chronic diarrhea Recurrent falls Fatty liver FELISA (obstructive sleep apnea) CKD (chronic kidney disease) stage 4, GFR 15-29 ml/min Acquired hypothyroidism History of vitamin D deficiency Peripheral arterial disease Vertigo Polyneuropathy Insomnia Carnitine palmitoyltransferase II deficiency Vision problems Thyroid cancer GERD (gastroesophageal reflux disease) Osteoarthritis Hypothyroid Neuropathy Kidney disease Hypertension History of emotional problems Chronic bronchitis Surgical History History of cholecystectomy Cataract extraction status History of surgical procedure H/O thyroidectomy S/P cholecystectomy History of surgical procedure H/O wrist surgery History of repair of rotator cuff History of hysterectomy Hx of total knee replacement Family History Mother CVA (cerebral vascular accident) Heart disease Arthritis Lupus Father Myocardial infarction Hypertension Brother Colon cancer Brother Colon cancer Brother Cancer stomach Sister Seizures Grandfather Myocardial infarction Grandmother Myocardial infarction Social History household members: none housing: apartment current occupational status: unemployed Smoking Status: Former smoker quit date: 07/10/13 pack-years: 20 Tobacco: How many years used: 20 Electronic Cigarette Us (more content not included)... Normal [facility] Emergency Department Summary on 01-01-2025 Emergency Department Summary [facility] Medical Records Department [address] [place] [address] Emergency Department Summary 01/01/25 MR#: [id number] Acct: [id number] Name: RADHA SHAFER ANIL Rep #: [id number] : 1960 64 From: Teddy Rust MD PCP: Dr. Jennifer Gordon MD Status:REG ER Location: ED HPI History of Present Illness Chief Complaint: Other, Pain/Inj Detail of Chief Complaint: Left lateral neck pain for a week. No trauma. Informant: patient Onset/Context/Timing Onset: Days Context: Gradual Onset Timing: Continuous Current Severity: Moderate Maximum Severity: Moderate Narrative Narrative: 64-year-old female known degenerative disc disease, COPD, CAD, cervical radiculopathy, CKD and hypertension. Uses the muscle relaxant Zanaflex at home. States about a week ago she awoke with increasing pain in her left lateral neck. Denies any weakness to her arm. Denies any fall or trauma. No fever. In the past she was seen for this and told that she was not a candidate for surgery. She has appointment to see Dr. Reardon of spine this coming Monday. Prior similar symptoms: Yes Recent Illness/Hospitalization : Yes PFSH [facility] Medical History Myalgia Neck pain Low back pain Anxiety Depression Osteoporosis Smoker On home oxygen therapy COPD (chronic obstructive pulmonary disease) Hypertension Hx of ventricular tachycardia COPD (chronic obstructive pulmonary disease) Chronic hypoxemic respiratory failure Polyclonal gammopathy Bence Davila protein present in urine Obesity Nonsustained ventricular tachycardia Coronary artery disease Syncope Palpitations Thyroid cancer Syncope and collapse Essential hypertension Fatigue Cervical radiculopathy Smoking greater than 30 pack years Hypoxia Chronic diarrhea Recurrent falls Fatty liver FELISA (obstructive sleep apnea) CKD (chronic kidney disease) stage 4, GFR 15-29 ml/min Acquired hypothyroidism History of vitamin D deficiency Peripheral arterial disease Vertigo Polyneuropathy Insomnia Carnitine palmitoyltransferase II deficiency Vision problems Thyroid cancer GERD (gastroesophageal reflux disease) Osteoarthritis Hypothyroid Neuropathy Kidney disease Hypertension History of emotional problems Chronic bronchitis Home Medications ???Medication ???Instructions ???Recorded ???Last Taken ???Type Disability Placard #1 ea 02/07/23 Unknown Rx aspirin 81 mg tablet,delayed 81 mg PO DAILY heart health 06/12/24 History release (Adult Low Dose Aspirin) cholecalciferol (vitamin D3) 50 50 mcg PO DAILY vitamin 04/18/23 0 06/12/24 History mcg (2,000 unit) capsule ferrous sulfate 325 mg (65 mg 325 mg PO DAILY 04/18/23 06/12/24 History iron) tablet levocarnitine 330 mg tablet 330 mg PO TID vitamin 04/18/2305/29 History compr.stocking,thigh,sh ort,lrg #24 ea 02/29/24 Unknown Rx metoprolol tartrate 100 mg tablet 100 mg PO BID blood pressure #180 06/06/24 06/12/24 Rx tabs nifedipine 30 mg tablet,extended 30 mg PO DAILY blood pressure #90 06/06/24 06/12/24 Rx release tabs triheptanoin 8.3 kcal/mL oral 166 kcal PO BID 06/12/24 06/12/24 History liquid (Dojolvi) lisinopril 20 mg tablet 20 mg PO QDAY 07/02/24 Unknown His tory rifaximin 550 mg tablet (Xifaxan) 550 mg PO TID 07/02/24 Unknown Hi story doxepin 100 mg capsule 100 mg PO QHS #30 caps 08/27/24 Un known Rx lovastatin 10 mg tablet 10 mg PO QPM cholesterol #90 tabs 10/17/24 Unknown Rx tizanidine 4 mg tablet See Rx Instructions .Route 4 Unknown Rx .COMPLEX spasms #150 tabs fluticasone fur. 200 mcg-umeclid 1 inh inhalation DAILY breathing 0 11/07/24 Unknown Rx 62.5 mcg-vilant 25 mcg #3 ea inhalat.powder (Trelegy Ellipta) omeprazole 40 mg capsule,delayed 40 mg PO DAILY for acid reflux #90 11/22/24 Unknown Rx release caps duloxetine 60 mg capsule,delayed 60 mg PO DAILY mental health #90 0 11/29/24 Unknown Rx release caps levothyroxine 175 mcg tablet 175 mcg PO DAILY thyroid #90 tabs 11/29/24 Unknown Rx oxycodone-acetaminophen 5 mg-325 1 tab PO Q8H PRN pain 5 days #12 0 01/01/25 Unknown Rx mg tablet (Percocet) tabs Allergy/AdvReac Type Severity Reaction Status Date / Time Penicillins Allergy Unknown Unknown Verified 01/01/25 15:33 Family History Mother CVA (cerebral vascular accident) Heart disease Arthritis Lupus Father Myocardial infarction Hypertension Brother Colon cancer Brother Colon cancer Brother Cancer stomach Sister Seizures Grandfather Myocardial infarction Grandmother Myocardial infarction Surgical History History of cholecystectomy Cataract extraction status (more content not included)... Normal [facility] Neurology Visit Reporton Neurology Visit Report [facility] [address], [address] [place] [id number] OFFICE VISIT Date of Service: 12/26/24 MR#: [id number] Acct: [id number] Name: RADHA SHAFER Rep #: [id number] : 1960 Provider: Dr. Rusty ayers MD Age/Sex: 64/F Location: [facility] [place].[facility] Status: Signed HPI HPI Chief Complaint: Details: Interim History: Radha returns for follow-up visit. She has stage III/IV chronic renal insufficiency, left-sided facial shingles (2020), sleep apnea (she uses supplemental oxygen; she no longer uses CPAP), and hypothyroidism. She sees a information technology internship. She had a left knee replacement in 2008. She has chronic low back pain. She previously saw a rn pain management, Dr. Mancini, in 2017 and had lumbar injections which were of benefit. Her right knee pain subsided. She has prominent neck pain and has had right upper extremity radicular pain that extends to the hand. Her last cervical paraspinal muscle trigger point injection provided about 3 days of pain reduction. She now reports severe left-sided neck pain that began 2 days ago and was present upon awakening and she is also experiencing left upper extremity radicular pain extending to the left thumb and index finger. Lumbar trigger point injections were of benefit. Percocet 10/325 and oxycodone 10 mg were of benefit. She had previously seen Dr. Jules, an orthopedic surgeon, and had a lumbar epidural steroid injection; this was of benefit. Surgery was not recommended. Physical therapy in the past was not of benefit and had worsened her neck pain. Her low back pain has been more pronounced since 2023 and has limited her mobility. She is scheduled to have a lumbar MRI next month. She previously took hyoscyamine for abdominal pain following meals. In 2015, she developed marked muscle pain and spasms affecting all extremities. She was found to have elevated CPK, myoglobin, ESR and C-reactive protein. She saw a neurologist at [facility], and was diagnosed with carnitine palmitoyltransferase II (CPT II) deficiency; MCT oil was not well- tolerated; she sees a physician at [facility] in [place] and is prescribed Dojolvi. Tizanidine is of benefit. She had period of increased muscle pain and rhabdomyolysis, and increased renal insufficiency in June 2024 that was triggered by increased physical exertion and dehydration and was hospitalized and had improvement. Her last creatinine kinase in June 2024 was normal. She takes lovastatin for hyperlipidemia and is tolerating this well. She takes doxepin for insomnia. She saw a coal pipeline operator in 2018 for right foot pain and had right foot injections for a heel spur; her foot pain resolved. She had left hip pain. She has had intermittent vertigo since 2019. Meclizine lost efficacy. She denied having hearing loss or tinnitus. She has numbness in the feet. She reported having burning pain in the feet. She has had some left calf cramping; this has occurred at rest and with movement. She takes levothyroxine. Vicodin, baclofen, B12 injection (for fatigue) nabumetone, acetaminophen (for prior right hamstring region pain) and tramadol were not of significant benefit. She is on supplemental oxygen for her COPD and sleep apnea (she did not tolerate CPAP). She saw a ethanol operations manager, Dr. 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 She states that she was diagnosed with atrial fibrillation and has been prescribed metoprolol. She has not been prescribed an anticoagulant. Physical Exam: Neuro: The patient is awake and alert and responds appropriately; speech is fluent; motor strength is 5/5 in the left deltoid, left triceps, left biceps, left first dorsal interosseous, and left abductor pollicis brevis; there are no deficits to soft touch in the left hand Neck: No bruits; left-sided paraspinal muscle tenderness is noted Heart: Regular rate and rhythm Supplemental Info EMG/nerve conduction studies of the left arm and left leg (10/22/2010): Left peroneal nerve lesion and possible myopathy. The classic inflammatory myopathy produces a mix EMG pattern of small abundant units that are easily recruitable, but have reduced total numbers. The full pattern was not seen in this case, though reduced motor recruitment was seen in a number of muscles. Hepatitis panel (08/26/2010): Negative. Muscle biopsy (10/26/2010): No evidence of inflammatory myopathy. Myofiber atrophy and is especially fiber type grouping were noted and are changes associated with denervation. It cannot be determined from the biopsy if denervation is due to peripheral neuropathy or motor neuron disease. Aldolase, striated muscle antibodies, ACH receptor binding antibodies (12/24/2010): Negative. CPK, myoglobin, aldolase, B12, folate, CMP, magnesium, CBC (03/07/2014): Creatin (more content not included)... Normal [facility] CBC WITH AUTO DIFFERENTIALon 11-12-2024 AUTO NRBC 0.0 % Normal [facility] Comment on above: Performed By: #### L [id number] #### LAB [address] [place] [address] Maurice Coello M.D. [id number] AUTO NRBC ABS COUNT 0.00 K/mcL Normal 0.00-0.00 [facility] Comment on above: Performed By: #### L [id number] ####[facility] LAB [address] [place] [address] Maurice Coello M.D. [id number] BASOPHILS ABSOLUTE COUNT 0.06 K/mcL Normal 0.00-0.30 [facility] Comment on above: Performed By: #### L [id number] #### LAB [address] [place] [address] Maurice Coello M.D. [id number] Basophils/100 WBC (Bld) 0.8 % Normal [facility] Comment on above: Performed By: #### L [id number] #### LAB [address] [place] [address] Maurice Coello M.D. [id number] Eosinophils (Bld) [#/Vol] 0.17 10*3/uL Normal 0.00-0.50 [facility] Comment on above: Performed By: #### L [id number] #### LAB [address] [place] [address] Maurice Coello M.D. [id number] Eosinophils/100 WBC (Bld) 2.3 % Normal [facility] Comment on above: Performed By: #### L [id number] #### LAB [address] [place] [address] Maurice Coello M.D. [id number] Erythrocyte distribution width (RBC) [Ratio] 14.1 % Normal 11.6-14.8 [facility] Comment on above: Performed By: #### L [id number] #### LAB [address] [place] [address] Maurice Coello M.D. [id number] Hematocrit (Bld) [Volume fraction] 36.2 % Normal 36.0-46.0 [facility] Comment on above: Performed By: #### L [id number] #### LAB [address] [place] [address] Maurice Coello M.D. [id number] Hemoglobin (Bld) [Mass/Vol] 11.0 g/dL Low 12.0-16.0 [facility] Comment on above: Performed By: #### L [id number] #### LAB [address] [place] [address] Maurice Coello M.D. [id number] IG ABSOLUTE 0.03 K/mcL Normal 0.00-0.30 [facility] Comment on above: Performed By: #### L [id number] #### LAB [address] [place] [address] Maurice Coello M.D. [id number] IG PERCENT 0.40 % Normal [facility] Comment on above: Result Comment: The IG parameter is the percentage of metamyelocytes, myelocytes and promyelocytes. An immature granulocyte count (IG) of 1% or more suggests the possibility of infection, an IG count of 3% is very likely related to an infection. Performed By: #### L [id number] #### LAB [address] [place] [address] Maurice Coello M.D. [id number] Lymphocytes (Bld) [#/Vol] 1.60 10*3/uL Normal 0.90-4.00 [facility] Comment on above: Performed By: #### L [id number] #### LAB [address] [place] [address] Maurice Coello M.D. [id number] Lymphocytes/100 WBC (Bld) 21.3 % Normal [facility] Comment on above: Performed By: #### L [id number] #### LAB [address] [place] [address] Maurice Coello M.D. [id number] MCH (RBC) [Entitic mass] 26.3 pg Normal 26.0-34.0 [facility] Comment on above: Performed By: #### L [id number] #### LAB [address] [place] [address] Maurice Coello M.D. [id number] MCV (RBC) [Entitic vol] 86.6 fL Normal 80.0-100.0 [facility] Comment on above: Performed By: #### L [id number] #### LAB [address] [place] [address] Maurice Coello M.D. [id number] MEAN CORPUSCULAR HEMOGLOBIN CONC 30.4 g/dL Low 31.0-37.0 [facility] Comment on above: Performed By: #### L [id number] #### LAB [address] [place] [address] Maurice Coello M.D. [id number] Monocytes (Bld) [#/Vol] 0.56 10*3/uL Normal 0.30-0.90 [facility] Comment on above: Performed By: #### L [id number] #### LAB [address] [place] [address] Maurice Coello M.D. [id number] Monocytes/100 WBC (Bld) 7.5 % Normal [facility] Comment on above: Performed By: #### L [id number] #### LAB [address] [place] [address] Maurice Coello M.D. [id number] NEUTROPHILS ABSOLUTE COUNT 5.09 K/mcL Normal 1.70-7.00 [facility] Comment on above: Performed By: #### L [id number] #### LAB [address] [place] [address] Maurice Coello M.D. [id number] Neutrophils/100 WBC (Bld) 67.7 % Normal [facility] Comment on above: Performed By: #### L [id number] #### LAB [address] [place] [address] Maurcie Coello M.D. [id number] Platelet mean volume (Bld) [Entitic vol] 10.5 fL Normal 9.4-12.4 [facility] Comment on above: Performed By: #### L [id number] ####[facility] LAB [address] [place] [address] Maurice Coello M.D. [id number] Platelets (Bld) [#/Vol] 264 10*3/uL Normal 150-400 [facility] Comment on above: Performed By: #### L [id number] ####[facility] [address] [place] [address] Maurice Coello M.D. [id number] RBC (Bld) [#/Vol] 4.18 10*6/uL Normal 4.00-5.20 [facility] Comment on above: Performed By: #### L [id number] ####[facility] [address] [place] [address] Maurice Coello M.D. [id number] WBC (Bld) [#/Vol] 7.51 10*3/uL Normal 4.50-11.00 [facility] Comment on above: Performed By: #### L [id number] ####[facility] [address] [place] [address] Maurice Coello M.D. [id number] COMPREHENSIVE METABOLIC PANE Jett 11-12-2024 Albumin [Mass/Vol] 4.1 g/dL Normal 3.2-5.2 [facility] Comment on above: Order Comment: Injur y/Trauma or Illness?:Illness/Other How long have you had these symptoms (acute/chronic)?:Acute Reason for exam?:sob. Hx of COPD History of cancer?:unknown Surgeries, chemotherapy, or radiation?:cholecystectomy, hysterectomy, oophrectomy, left knee replacement Type of Exam?:Initial Additional signs and symptoms?:. Performed By: #### [id number] #### LAB [address] [place] [address] Maurice Coello M.D. [id number] ALP [Catalytic activity/Vol] 72 U/L Normal 40-150 [facility] Comment on above: Order Comment: Injur y/Trauma or Illness?:Illness/Other How long have you had these symptoms (acute/chronic)?:Acute Reason for exam?:sob. Hx of COPD History of cancer?:unknown Surgeries, chemotherapy, or radiation?:cholecystectomy, hysterectomy, oophrectomy, left knee replacement Type of Exam?:Initial Additional signs and symptoms?:. Performed By: #### 4 [id number] #### LAB [address] [address] Maurice Coello M.D. [id number] ALT [Catalytic activity/Vol] 16 U/L Normal 0-35 U/L [facility] Comment on above: Order Comment: Injur y/Trauma or Illness?:Illness/Other How long have you had these symptoms (acute/chronic)?:Acute Reason for exam?:sob. Hx of COPD History of cancer?:unknown Surgeries, chemotherapy, or radiation?:cholecystectomy, hysterectomy, oophrectomy, left knee replacement Type of Exam?:Initial Additional signs and symptoms?:. Performed By: #### 4 [id number] #### LAB [address] [address] Maurice Coello M.D. [id number] Anion gap [Moles/Vol] 14 mmol/L Normal 10-20 [facility] [place] [facility] Comment on above: Order Comment: Injur y/Trauma or Illness?:Illness/Other How long have you had these symptoms (acute/chronic)?:Acute Reason for exam?:sob. Hx of COPD History of cancer?:unknown Surgeries, chemotherapy, or radiation?:cholecystectomy, hysterectomy, oophrectomy, left knee replacement Type of Exam?:Initial Additional signs and symptoms?:. Performed By: #### 4 6150 #### LAB [address] [address] Maurice Coello M.D. [id number] AST [Catalytic activity/Vol] 17 U/L Normal 0-35 U/L [facility] Comment on above: Order Comment: Injur y/Trauma or Illness?:Illness/Other How long have you had these symptoms (acute/chronic)?:Acute Reason for exam?:sob. Hx of COPD History of cancer?:unknown Surgeries, chemotherapy, or radiation?:cholecystectomy, hysterectomy, oophrectomy, left knee replacement Type of Exam?:Initial Additional signs and symptoms?:. Performed By: #### 4 [id number] #### LAB [address] [address] Maurice Coello M.D. [id number] BILIRUBIN TOTAL < Normal 0.0-1.3 [facility] Comment on above: Order Comment: Injur y/Trauma or Illness?:Illness/Other How long have you had these symptoms (acute/chronic)?:Acute Reason for exam?:sob. Hx of COPD History of cancer?:unknown Surgeries, chemotherapy, or radiation?:cholecystectomy, hysterectomy, oophrectomy, left knee replacement Type of Exam?:Initial Additional signs and symptoms?:. Performed By: #### 4 6154 #### LAB [address] [address] Maurice Coello M.D. [id number] Calcium [Mass/Vol] 9.0 mg/dL Normal 8.4-10.2 [facility] Comment on above: Order Comment: Injur y/Trauma or Illness?:Illness/Other How long have you had these symptoms (acute/chronic)?:Acute Reason for exam?:sob. Hx of COPD History of cancer?:unknown Surgeries, chemotherapy, or radiation?:cholecystectomy, hysterectomy, oophrectomy, left knee replacement Type of Exam?:Initial Additional signs and symptoms?:. Performed By: #### 4 6144 #### LAB [address] [address] Maurice Coello M.D. [id number] Chloride [Moles/Vol] 97 mmol/L Low 98-108 [facility] Comment on above: Order Comment: Injur y/Trauma or Illness?:Illness/Other How long have you had these symptoms (acute/chronic)?:Acute Reason for exam?:sob. Hx of COPD History of cancer?:unknown Surgeries, chemotherapy, or radiation?:cholecystectomy, hysterectomy, oophrectomy, left knee replacement Type of Exam?:Initial Additional signs and symptoms?:. Performed By: #### 4 6173 #### LAB [address] [address] Maurice Coello M.D. [id number] Creatinine [Mass/Vol] 2.18 mg/dL High 0.60-1.10 [facility] [place] [facility] Comment on above: Order Comment: Injur y/Trauma or Illness?:Illness/Other How long have you had these symptoms (acute/chronic)?:Acute Reason for exam?:sob. Hx of COPD History of cancer?:unknown Surgeries, chemotherapy, or radiation?:cholecystectomy, hysterectomy, oophrectomy, left knee replacement Type of Exam?:Initial Additional signs and symptoms?:. Performed By: #### 4 [id number] #### LAB [address] [address] Maurice Coello M.D. [id number] EGFR 24 mL/min/1.73 m2 Low >=60 [facility] Comment on above: Order Comment: Injur y/Trauma or Illness?:Illness/Other How long have you had these symptoms (acute/chronic)?:Acute Reason for exam?:sob. Hx of COPD History of cancer?:unknown Surgeries, chemotherapy, or radiation?:cholecystectomy, hysterectomy, oophrectomy, left knee replacement Type of Exam?:Initial Additional signs and symptoms?:. Result Comment: Ericka mated GFR was calculated using the 2020 CKD-EPI creatinine equation. Performed By: #### 4 6169 #### LAB [address] [address] Maurice Coello M.D. [id number] Glucose [Mass/Vol] 92 mg/dL Normal 65-99 [facility] Comment on above: Order Comment: Injur y/Trauma or Illness?:Illness/Other How long have you had these symptoms (acute/chronic)?:Acute Reason for exam?:sob. Hx of COPD History of cancer?:unknown Surgeries, chemotherapy, or radiation?:cholecystectomy, hysterectomy, oophrectomy, left knee replacement Type of Exam?:Initial Additional signs and symptoms?:. Performed By: #### 4 6173 #### LAB [address] [address] Maurice Coello M.D. [id number] HCO3 (Bld) [Moles/Vol] 28 mmol/L Normal 21-32 [facility] Comment on above: Order Comment: Injur y/Trauma or Illness?:Illness/Other How long have you had these symptoms (acute/chronic)?:Acute Reason for exam?:sob. Hx of COPD History of cancer?:unknown Surgeries, chemotherapy, or radiation?:cholecystectomy, hysterectomy, oophrectomy, left knee replacement Type of Exam?:Initial Additional signs and symptoms?:. Performed By: #### 4 6126 #### LAB [address] [address] Maurice Coello M.D. [id number] Potassium [Moles/Vol] 5.1 mmol/L Normal 3.5-5.1 [facility] [place] [facility] Comment on above: Order Comment: Injur y/Trauma or Illness?:Illness/Other How long have you had these symptoms (acute/chronic)?:Acute Reason for exam?:sob. Hx of COPD History of cancer?:unknown Surgeries, chemotherapy, or radiation?:cholecystectomy, hysterectomy, oophrectomy, left knee replacement Type of Exam?:Initial Additional signs and symptoms?:. Performed By: #### 4 6126 #### LAB [address] [address] Maurice Coello M.D. [id number] Protein [Mass/Vol] 7.2 g/dL Normal 6.0-8.0 [facility] Comment on above: Order Comment: Injur y/Trauma or Illness?:Illness/Other How long have you had these symptoms (acute/chronic)?:Acute Reason for exam?:sob. Hx of COPD History of cancer?:unknown Surgeries, chemotherapy, or radiation?:cholecystectomy, hysterectomy, oophrectomy, left knee replacement Type of Exam?:Initial Additional signs and symptoms?:. Performed By: #### 4 9891 #### LAB [address] [id number] Maurice Coello M.D. [id number] Sodium [Moles/Vol] 134 mmol/L Low 135-145 [facility] Comment on above: Order Comment: Injur y/Trauma or Illness?:Illness/Other How long have you had these symptoms (acute/chronic)?:Acute Reason for exam?:sob. Hx of COPD History of cancer?:unknown Surgeries, chemotherapy, or radiation?:cholecystectomy, hysterectomy, oophrectomy, left knee replacement Type of Exam?:Initial Additional signs and symptoms?:. Performed By: #### 4 6126 #### LAB [address] [address] Maurice Coello M.D. [id number] Urea nitrogen [Mass/Vol] 38 mg/dL High 8-25 [facility] Comment on above: Order Comment: Injur y/Trauma or Illness?:Illness/Other How long have you had these symptoms (acute/chronic)?:Acute Reason for exam?:sob. Hx of COPD History of cancer?:unknown Surgeries, chemotherapy, or radiation?:cholecystectomy, hysterectomy, oophrectomy, left knee replacement Type of Exam?:Initial Additional signs and symptoms?:. Performed By: #### 4 6154 #### LAB [address] [address] Maurice Coello M.D. [id number] Urea nitrogen/Creatinine [Mass ratio] 17.4 mg/mg Normal 10.0-20.0 [facility] Comment on above: Order Comment: Injur y/Trauma or Illness?:Illness/Other How long have you had these symptoms (acute/chronic)?:Acute Reason for exam?:sob. Hx of COPD History of cancer?:unknown Surgeries, chemotherapy, or radiation?:cholecystectomy, hysterectomy, oophrectomy, left knee replacement Type of Exam?:Initial Additional signs and symptoms?:. Performed By: #### 4 6186 #### [address] [address] Maurice Coello M.D. [id number] CT KIDNEY STONEon 11-12-2024 CT KIDNEY STONE EXAMINATION: CT KIDNEY STONE 11/12/2024 HISTORY: Abdominal/flank pain, stone suspected. Chronic kidney disease TECHNIQUE: Axial CT scans through the abdomen and pelvis were obtained without IV contrast administration. Dose reduction techniques were achieved by using: automated exposure control and/or adjustment of mA and /or kV according to patient size and/or use of iterative reconstruction technique. COMPARISON: 11/10/2022 FINDINGS: Limited evaluation of the viscera/organs and vasculature without intravenous contrast. TUBES/IMPLANTS: None. ABDOMINAL WALL AND SOFT TISSUES: Unremarkable. BONES: No suspicious lesions. Mild levoconvex scoliosis. Multilevel degenerative changes of the spine. ARTERIES: Incompletely evaluated. Moderate aortoiliac calcification without aneurysm VEINS: Incompletely evaluated LYMPH NODES: Unremarkable. PERITONEUM/ RETROPERITONEUM: Unremarkable. BOWEL: No dilated small bowel loops within the field of view. Mild diverticulosis APPENDIX: Unremarkable LIVER: No suspicious lesions within the field of view. GALLBLADDER: Surgically absent BILE DUCTS: Incompletely evaluated SPLEEN: No suspicious lesions within the field of view PANCREAS: Incompletely evaluated ADRENALS: Incompletely evaluated the KIDNEYS/ URETERS: No stones or hydronephrosis. Bilateral cortical renal scarring. REPRODUCTIVE ORGANS: Uterus is surgically absent. Bilateral ovaries are not clearly identified. URINARY BLADDER: Unremarkable. IMPRESSION: No nephrolithiasis or evidence of obstructive uropathy. No acute abdominopelvic process is identified. Bilateral cortical renal scarring. Mild diverticulosis. Workstation ID: [id number] Dictated by: BRANDO MORENO on MonNov 12, 2024 7:20:28 PM EST Transcribed by: BRANDO MORENO on MonNov 12, 2024 7:20:28 PM EST Finalized by: BRANDO MORENO on MonNov 12, 2024 7:20:28 PM EST Normal [facility] Comment on above: Order Comment: Injur y/Trauma or Illness?:Illness/Other How long have you had these symptoms (acute/chronic)?:Acute Reason for exam?:Right sided abdominal/flank pain x2 weeks Type of Exam?:Initial Additional signs and symptoms?:Denies N/V/D, CKD hx thus no IV contrast ED Prov Noteon 11-12-2024 ED Prov Note ED PROVIDER NOTE [facility] NAME: Radha Shafer AGE: 64 y.o. : 1960 VISIT DATE: 11/12/2024 CSN: [id number] PCP: Erin, Physician Chief Complaint Patient presents with Abdominal Pain Abdominal Pain 2 weeks of right lower abdominal pain radiating around to her right flank and down into her hip with associated urinary urgency with decrease in urine output despite drinking plenty of water. No trauma and she has a history of CKD but no history of stones and she still has her appendix. No specific treatment at home for pain. The pain is worse with movement and better with lying still. No blood in her urine and she has had intermittent nausea without vomiting. No sick contacts. Past Medical History: Diagnosis Date Anxiety Arthritis Back pain Bladder problem incontinence Cancer (HCC) thyroid Chronic pain disorder Colitis sigmoid COPD (chronic obstructive pulmonary disease) (HCC) 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HCC) Per pt. - Depression Diabetes (HCC) Diverticulosis Emphysema of lung (HCC) GERD (gastroesophageal reflux disease) Hepatic steatosis History of echocardiogram History of stress test Hypertension Hypothyroidism Kidney disease, chronic, stage I (GFR over 89 ml/min) stage 3 Lung nodule Neuromuscular disorder (HCC) 2015 I have cpt2 difficency Obesity On home oxygen therapy 2L via [place], PRN with walking, activity Scoliosis 03/2022 Sleep apnea noncompliant with CPAP; uses home oxygen Sleep apnea, obstructive Past Surgical History: Procedure Laterality Date ALTEMEIER PROCEDURE N/A 03/30/2022 Procedure: ALTEMEIER PROCEDURE; Surgeon: Jada Vargas MD; [place] [facility] [place]; Service: Colorectal CARDIAC CATHETERIZATION N/A 09/26/2022 Procedure: Coronary Angiogram; Surgeon: Tor Long MD; Location: [facility]; Service: Cardiovascular CARDIOVASCULAR STRESS TEST CHOLECYSTECTOMY COLONOSCOPY with biopsies COLONOSCOPY N/A 02/17/2022 Procedure: COLONOSCOPY; Surgeon: Jada Vargas MD; [place] [facility] [place]; Service: Colorectal EGD N/A 08/15/2022 Procedure: ESOPHAGOGASTRODUODENOSC OPY WITH BIOPSY; Surgeon: Tyshawn Santos MD; Location: Endo; Service: Gastroenterology GALLBLADDER HC LEFT HEART CATH N/A 09/26/2022 Procedure: Left Heart Cath; Surgeon: Tor Long MD; Location: [facility]; Service: Cardiovascular HYSTERECTOMY JOINT REPLACEMENT Left knee ORTHOPEDIC SURGERY r wrist surgery, left ankle, right rotator cuff ROTATOR CUFF REPAIR Right SIGMOIDOSCOPY FLEXIBLE N/A 06/23/2022 Procedure: SIGMOIDOSCOPY FLEXIBLE WITH BIOPSY; Surgeon: Tyshawn Santos MD; Location: Endo; Service: Gastroenterology THYROIDECTOMY N/A 07/15/2015 Procedure: TOTAL THYROIDECTOMY; Surgeon: Lopez Alonso MD; Location: [facility] NEURO OR; Service: US ECHO TRANSTHORACIC FOLLOWUP LIMITED WRIST SURGERY Right Family History Problem Relation Age of Onset Heart disease Mother Lupus Mother Stroke Mother Arthritis Mother Heart attack Mother Heart disease Father Heart attack Father Hypertension Father Hypertension Sister Hypertension Brother Prostate cancer Brother Colon cancer Brother Hypertension Brother Prostate cancer Brother Colon cancer Brother Hypertension Brother Prostate cancer Brother Stomach cancer Brother Heart attack Maternal Grandmother Heart attack Maternal Grandfather Heart attack Paternal Grandmother Heart attack Paternal Grandfather Breast cancer Neg Hx Social History Socioeconomic History Marital status: Occupational History 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 Social Drivers of Health Financial Resource Strain: Medium Risk (06/03/2024) Received from [facility] Overall Financial Resource Strain (CARDIA) Difficulty of Paying Living Expenses: Somewhat hard Food Insecurity: No Food Insecurity (09/21/2024) Hunger Vital Sign Worried About Running Out of Food in the Last Year: Never true Ran Out of Food in the Last Year: Never true Transportation Needs: No Transportation Needs (09/21/2024) PRAPARE - Transportation Lack of Transportation (Medical): No Lack of Transportation (Non-Medical): No Housing Stability: High Risk (09/21/2024) Housing Stability Vital Sign Unable to Pay for Housing in the Last Year: Yes Number of Times Moved in the Last Year: 1 Homeless in the Last (more content not included)... Normal [facility] LIPASEon 11-12-2024 Lipase [Catalytic activity/Vol] 66 U/L High - [facility] Comment on above: Performed By: #### 4 6086 #### LAB [address] [address] Maurice Coello M.D. [id number] URINALYSISon 11-12-2024 BACTERIA, URINE Rare Abnormal None Seen [facility] Comment on above: Order Comment: Micro scopic examination is performed on all urinalysis samples and only positive findings are reported. The test for blood on the chemical analytic portion of urinalysis may also be positive due to hemoglobinuria and myoglobinuria and if red blood cells are present they are quantified by microscopic examination. Performed By: #### 4 [id number] #### LAB [address] [address] Maurice Coello M.D. [id number] BILIRUBIN, URINE Negative Normal Negative [facility] Comment on above: Order Comment: Micro scopic examination is performed on all urinalysis samples and only positive findings are reported. The test for blood on the chemical analytic portion of urinalysis may also be positive due to hemoglobinuria and myoglobinuria and if red blood cells are present they are quantified by microscopic examination. Performed By: #### 4 [id number] #### LAB [address] [address] Maurice Coello M.D. [id number] BLOOD, URINE Negative Normal Negative [facility] Comment on above: Order Comment: Micro scopic examination is performed on all urinalysis samples and only positive findings are reported. The test for blood on the chemical analytic portion of urinalysis may also be positive due to hemoglobinuria and myoglobinuria and if red blood cells are present they are quantified by microscopic examination. Performed By: #### 4 [id number] #### LAB [address] [id number] Maurice Coello M.D. [id number] Clarity (U) Clear Normal Clear [facility] Comment on above: Order Comment: Micro scopic examination is performed on all urinalysis samples and only positive findings are reported. The test for blood on the chemical analytic portion of urinalysis may also be positive due to hemoglobinuria and myoglobinuria and if red blood cells are present they are quantified by microscopic examination. Performed By: #### 4 [id number] #### [address] [id number] Maurice Coello M.D. [id number] Color (U) Colorless Normal Colorless, Yellow [facility] Comment on above: Order Comment: Micro scopic examination is performed on all urinalysis samples and only positive findings are reported. The test for blood on the chemical analytic portion of urinalysis may also be positive due to hemoglobinuria and myoglobinuria and if red blood cells are present they are quantified by microscopic examination. Performed By: #### 4 [id number] #### [address] [address] Maurice Coello M.D. [id number] Glucose Ql (U) Negative Normal Negative, >=1000 [facility] Comment on above: Order Comment: Micro scopic examination is performed on all urinalysis samples and only positive findings are reported. The test for blood on the chemical analytic portion of urinalysis may also be positive due to hemoglobinuria and myoglobinuria and if red blood cells are present they are quantified by microscopic examination. Performed By: #### 4 [id number] #### LAB [address] [address] Maurice Coello M.D. [id number] Hyaline casts LM Ql (Urine sed) 0-2 Normal 0-2 [facility] Comment on above: Order Comment: Micro scopic examination is performed on all urinalysis samples and only positive findings are reported. The test for blood on the chemical analytic portion of urinalysis may also be positive due to hemoglobinuria and myoglobinuria and if red blood cells are present they are quantified by microscopic examination. Performed By: #### 4 [id number] #### [facility] [address] [address] Maurice Coello M.D. [id number] Ketones Ql (U) Negative Normal Negative [facility] Comment on above: Order Comment: Micro scopic examination is performed on all urinalysis samples and only positive findings are reported. The test for blood on the chemical analytic portion of urinalysis may also be positive due to hemoglobinuria and myoglobinuria and if red blood cells are present they are quantified by microscopic examination. Performed By: #### 4 [id number] #### [address] [place], [place] [address] Maurice Coello M.D. [id number] Leukocyte esterase Test strip Ql (U) Trace Abnormal Negative [facility] Comment on above: Order Comment: Micro scopic examination is performed on all urinalysis samples and only positive findings are reported. The test for blood on the chemical analytic portion of urinalysis may also be positive due to hemoglobinuria and myoglobinuria and if red blood cells are present they are quantified by microscopic examination. Performed By: #### 4 [id number] #### LAB [address] [address] Maurice Coello M.D. [id number] NITRITE, URINE Negative Normal Negative [facility] Comment on above: Order Comment: Micro scopic examination is performed on all urinalysis samples and only positive findings are reported. The test for blood on the chemical analytic portion of urinalysis may also be positive due to hemoglobinuria and myoglobinuria and if red blood cells are present they are quantified by microscopic examination. Performed By: #### 4 [id number] #### LAB [address] [id number] Maurice Coello M.D. [id number] pH (U) 5.0 [pH] Normal 5.0-7.0 [facility] Comment on above: Order Comment: Micro scopic examination is performed on all urinalysis samples and only positive findings are reported. The test for blood on the chemical analytic portion of urinalysis may also be positive due to hemoglobinuria and myoglobinuria and if red blood cells are present they are quantified by microscopic examination. Performed By: #### 4 [id number] #### LAB [address] [id number] Maurice Coello M.D. [id number] PROTEIN, URINE Negative Normal Negative [facility] Comment on above: Order Comment: Micro scopic examination is performed on all urinalysis samples and only positive findings are reported. The test for blood on the chemical analytic portion of urinalysis may also be positive due to hemoglobinuria and myoglobinuria and if red blood cells are present they are quantified by microscopic examination. Performed By: #### 4 [id number] #### LAB [address] [address] Maurice Coello M.D. [id number] RBC, URINE < Normal 0-3 [facility] Comment on above: Order Comment: Micro scopic examination is performed on all urinalysis samples and only positive findings are reported. The test for blood on the chemical analytic portion of urinalysis may also be positive due to hemoglobinuria and myoglobinuria and if red blood cells are present they are quantified by microscopic examination. Performed By: #### 4 [id number] #### LAB [address] [address] Maurice Coello M.D. [id number] Specific gravity (U) [Rel density] 1.009 Normal 1.005-1.025 [facility] Comment on above: Order Comment: Micro scopic examination is performed on all urinalysis samples and only positive findings are reported. The test for blood on the chemical analytic portion of urinalysis may also be positive due to hemoglobinuria and myoglobinuria and if red blood cells are present they are quantified by microscopic examination. Performed By: #### 4 [id number] #### LAB [address] [address] Maurice Coello M.D. [id number] SQUAMOUS EPITHELIAL 3 /hpf Normal 0-4 [facility] Comment on above: Order Comment: Micro scopic examination is performed on all urinalysis samples and only positive findings are reported. The test for blood on the chemical analytic portion of urinalysis may also be positive due to hemoglobinuria and myoglobinuria and if red blood cells are present they are quantified by microscopic examination. Performed By: #### 4 [id number] #### LAB [address] [address] Maurice Coello M.D. [id number] TRANSITIONAL EPITHELIAL 1 /hpf Normal 0-1 [facility] Comment on above: Order Comment: Micro scopic examination is performed on all urinalysis samples and only positive findings are reported. The test for blood on the chemical analytic portion of urinalysis may also be positive due to hemoglobinuria and myoglobinuria and if red blood cells are present they are quantified by microscopic examination. Performed By: #### 4 [id number] #### [address] [place], [place] [address] Maurice Coello M.D. [id number] UROBILINOGEN, URINE <2.0 Normal <2.0 [facility] Comment on above: Order Comment: Micro scopic examination is performed on all urinalysis samples and only positive findings are reported. The test for blood on the chemical analytic portion of urinalysis may also be positive due to hemoglobinuria and myoglobinuria and if red blood cells are present they are quantified by microscopic examination. Performed By: #### 4 [id number] #### LAB [address] [place], [place] [address] Maurice Coello M.D. [id number] WBC LM.HPF (Urine sed) [#/Area] 2 /[HPF] Normal 0-5 [facility] Comment on above: Order Comment: Micro scopic examination is performed on all urinalysis samples and only positive findings are reported. The test for blood on the chemical analytic portion of urinalysis may also be positive due to hemoglobinuria and myoglobinuria and if red blood cells are present they are quantified by microscopic examination. Performed By: #### 4 6625 #### LAB [address] [place], [place] [address] Maurice Coello M.D. [id number] Internal Medicine Office Vis tyshawn 09-30-2024 Internal Medicine Office Visit [facility] [place] [address] OFFICE VISIT Date of Service: 10/16/24 MR#: [id number] Acct: [id number] Name: RADHA SHAFER ANIL Rep #: [id number] : 1960 Provider: Dr. 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 Is patient in pain?: No Allergies Penicillins Allergy (Unknown, Verified 10/16/24 13:14) Unknown Medications ???Medication ???Instructions ???Recorded ???Confirmed ???Type Disability Placard #1 ea 02/07/23 10/16/24 Rx aspirin 81 mg tablet,delayed 81 mg PO DAILY heart health 04/18/23 10/16/24 History release (Adult Low Dose Aspirin) cholecalciferol (vitamin D3) 50 50 mcg PO DAILY vitamin 04/18/23 10/16/24 History mcg (2,000 unit) capsule ferrous sulfate 325 mg (65 mg 325 mg PO DAILY 04/18/23 10/16/24 History iron) tablet levocarnitine 330 mg tablet 330 mg PO TID vitamin 04/18/23 10/16/24 History compr.stocking,thigh,sh ort,lrg #24 ea 02/29/24 10/16/24 Rx lovastatin 10 mg tablet 10 mg PO QPM cholesterol #90 tabs 03/06/24 10/16/24 Rx duloxetine 60 mg capsule,delayed 60 mg PO DAILY mental health #90 06/03/24 10/16/24 Rx release caps metoprolol tartrate 100 mg tablet 100 mg PO BID blood pressure #180 06/06/24 10/16/24 Rx tabs nifedipine 30 mg tablet,extended 30 mg PO DAILY blood pressure #90 06/06/24 10/16/24 Rx release tabs levothyroxine 175 mcg tablet 175 mcg PO DAILY thyroid 06/10/24 10/16/24 History triheptanoin 8.3 kcal/mL oral 166 kcal PO BID 06/12/24 10/16/24 History liquid (Dojolvi) lisinopril 20 mg tablet 20 mg PO QDAY 07/02/24 10/16/24 History rifaximin 550 mg tablet (Xifaxan) 550 mg PO TID 07/02/24 10/16/24 History fluticasone fur. 200 mcg-umeclid 1 inh inhalation DAILY breathing 07/17/24 10/16/24 Rx 62.5 mcg-vilant 25 mcg #3 ea inhalat.powder (Trelegy Ellipta) omeprazole 40 mg capsule,delayed 40 mg PO DAILY reflux #90 caps 08/22/24 10/16/24 Rx release doxepin 100 mg capsule 100 mg PO QHS #30 caps 08/27/24 10/16/24 Rx tizanidine 4 mg tablet See Rx Instructions .Route 08/27/24 10/16/24 Rx .COMPLEX spasms #120 tabs Have you fallen in the past year?: No Nurse's Note: Is feeling better, here for hospital f/u, had copd exacerbation at [facility] went in on 09/21- 09/25. [facility] Medical History Low back pain Anxiety Depression Osteoporosis Smoker On home oxygen therapy COPD (chronic obstructive pulmonary disease) Hypertension Hx of ventricular tachycardia COPD (chronic obstructive pulmonary disease) Chronic hypoxemic respiratory failure Polyclonal gammopathy Bence Davila protein present in urine Obesity Nonsustained ventricular tachycardia Coronary artery disease Syncope Palpitations Thyroid cancer Syncope and collapse Essential hypertension Fatigue Cervical radiculopathy Smoking greater than 30 pack years Hypoxia Chronic diarrhea Recurrent falls Fatty liver FELISA (obstructive sleep apnea) CKD (chronic kidney disease) stage 4, GFR 15-29 ml/min Acquired hypothyroidism History of vitamin D deficiency Peripheral arterial disease Vertigo Polyneuropathy Insomnia Myalgia Neck pain Carnitine palmitoyltransferase II deficiency Vision problems Thyroid cancer GERD (gastroesophageal reflux disease) Osteoarthritis Hypothyroid Neuropathy Kidney disease Hypertension History of emotional problems Chronic bronchitis Surgical History History of cholecystectomy Cataract extraction status History of surgical procedure H/O thyroidectomy S/P cholecystectomy History of surgical procedure H/O wrist surgery History of repair of rotator cuff History of hysterectomy Hx of total knee replacement Family History Mother CVA (cerebral vascular accident) Heart disease Arthritis Lupus Father Myocardial infarction Hypertension Brother Colon cancer Brother Colon cancer Brother Cancer stomach Sister Seizures Grandfather Myocardial infarction Grandmother Myocardial infarction Social History household members: none housing: apartment current occupational s (more content not included)... Normal [facility] CBC Auto Differentialon 09-06 Basophils (Bld) [#/Vol] 0.01 10*3/uL [facility] Basophils/100 WBC (Bld) 0.1 % [facility] Eosinophils (Bld) [#/Vol] 0 10*3/uL [facility] Eosinophils/100 WBC (Bld) 0 % [facility] Erythrocyte distribution width (RBC) [Entitic vol] 14.5 % 11.6 - 14.8 % [facility] Hematocrit (Bld) [Volume fraction] 34.2 % Low 36.0 - 46.0 % [facility] Hemoglobin (Bld) [Mass/Vol] 10.2 g/dL Low 12.0 - 16.0 g/dL [facility] Immature granulocytes (Bld) [#/Vol] 0.08 10*3/uL [facility] Immature granulocytes/100 WBC (Bld) 0.7 % [facility] Comment on above: The IG parameter is the percentage of metamyelocytes, myelocytes and promyelocytes. An immature granulocyte count (IG) of 1% or more suggests the possibility of infection, an IG count of 3% is very likely related to an infection. Interpretation and review of laboratory results Abnormal [facility] Lymphocytes (Bld) [#/Vol] 0.72 10*3/uL Low [facility] Lymphocytes/100 WBC (Bld) 6.4 % [facility] MCH (RBC) [Entitic mass] 25.9 pg Low 26.0 - 34.0 pg [facility] MCHC (RBC) [Mass/Vol] 29.8 g/dL Low 31.0 - 37.0 g/dL [facility] MCV (RBC) [Entitic vol] 86.8 fL 80.0 - 100.0 fL [facility] Monocytes (Bld) [#/Vol] 0.32 10*3/uL [facility] Monocytes/100 WBC (Bld) 2.9 % [facility] Neutrophils (Bld) [#/Vol] 10.09 10*3/uL High [facility] Neutrophils/100 WBC (Bld) 89.9 % [facility] Nucleated RBC (Bld) [#/Vol] 0 10*3/uL [facility] Nucleated RBC/100 WBC (Bld) [Ratio] 0 % [facility] Platelet mean volume (Bld) [Entitic vol] 10.2 fL 9.4 - 12.4 fL [facility] Platelets (Bld) [#/Vol] 231 10*3/uL [facility] RBC (Bld) [#/Vol] 3.94 10*6/uL Low [facility] WBC (Bld) [#/Vol] 11.22 10*3/uL High [facility] CBC WITH AUTO DIFFERENTIALon 09-23-2024 AUTO NRBC 0.0 % Normal [facility] Comment on above: Performed By: #### L [id number] #### LAB [address] [place] [address] Maurice Coelol M.D. [id number] AUTO NRBC ABS COUNT 0.00 K/mcL Normal 0.00-0.00 [facility] Comment on above: Performed By: #### L [id number] #### LAB [address] [place] [address] Maurice Coello M.D. [id number] BASOPHILS ABSOLUTE COUNT 0.01 K/mcL Normal 0.00-0.30 [facility] Comment on above: Performed By: #### L [id number] #### LAB [address] [place] [address] Maurice Coello M.D. [id number] Basophils/100 WBC (Bld) 0.1 % Normal [facility] Comment on above: Performed By: #### L [id number] #### LAB [address] [place] [address] Maurice Coello M.D. [id number] Eosinophils (Bld) [#/Vol] 0.00 10*3/uL Normal 0.00-0.50 [facility] Comment on above: Performed By: #### L [id number] #### LAB [address] [place] [address] Maurice Coello M.D. [id number] Eosinophils/100 WBC (Bld) 0.0 % [facility] Comment on above: Performed By: #### L [id number] #### LAB [address] [place] [address] Maurice Coello M.D. [id number] Erythrocyte distribution width (RBC) [Ratio] 14.5 % Normal 11.6-14.8 [facility] Comment on above: Performed By: #### L [id number] #### LAB [address] [place] [address] Maurice Coello M.D. [id number] Hematocrit (Bld) [Volume fraction] 34.2 % Low 36.0-46.0 [facility] Comment on above: Performed By: #### L [id number] #### LAB [address] [place] [address] Maurice Coello M.D. [id number] Hemoglobin (Bld) [Mass/Vol] 10.2 g/dL Low 12.0-16.0 [facility] Comment on above: Performed By: #### L [id number] #### LAB [address] [place] [address] Maurice Coello M.D. [id number] IG ABSOLUTE 0.08 K/mcL Normal 0.00-0.30 [facility] Comment on above: Performed By: #### L [id number] #### LAB [address] [place] [address] Maurice Coello M.D. [id number] IG PERCENT 0.70 % Normal [facility] Comment on above: Result Comment: The IG parameter is the percentage of metamyelocytes, myelocytes and promyelocytes. An immature granulocyte count (IG) of 1% or more suggests the possibility of infection, an IG count of 3% is very likely related to an infection. Performed By: #### L [id number] #### LAB [address] [place] [address] Maurice Coello M.D. [id number] Lymphocytes (Bld) [#/Vol] 0.72 10*3/uL Low 0.90-4.00 [facility] Comment on above: Performed By: #### L [id number] #### LAB [address] [place] [address] Maurice Coello M.D. [id number] Lymphocytes/100 WBC (Bld) 6.4 % Normal [facility] Comment on above: Performed By: #### L [id number] #### LAB [address] [place] [address] Maurice Coello M.D. [id number] MCH (RBC) [Entitic mass] 25.9 pg Low 26.0-34.0 [facility] Comment on above: Performed By: #### L [id number] #### LAB [address] [place] [address] Maurice Coello M.D. [id number] MCV (RBC) [Entitic vol] 86.8 fL Normal 80.0-100.0 [facility] Comment on above: Performed By: #### L [id number] #### LAB [address] [place] [address] Maurice Coello M.D. [id number] MEAN CORPUSCULAR HEMOGLOBIN CONC 29.8 g/dL Low 31.0-37.0 [facility] Comment on above: Performed By: #### L [id number] #### LAB [address] [place] [address] Maurice Coello M.D. [id number] Monocytes (Bld) [#/Vol] 0.32 10*3/uL Normal 0.30-0.90 [facility] Comment on above: Performed By: #### L [id number] #### LAB [address] [place] [address] Maurice Coello M.D. [id number] Monocytes/100 WBC (Bld) 2.9 % Normal [facility] Comment on above: Performed By: #### L [id number] #### LAB [address] [place] [address] Maurice Coello M.D. [id number] NEUTROPHILS ABSOLUTE COUNT 10.09 K/mcL High 1.70-7.00 [facility] Comment on above: Performed By: #### L [id number] #### LAB [address] [place] [address] Maurice Coello M.D. [id number] Neutrophils/100 WBC (Bld) 89.9 % Normal [facility] Comment on above: Performed By: #### L [id number] #### LAB [address] [place] [address] Maurice Coello M.D. [id number] Platelet mean volume (Bld) [Entitic vol] 10.2 fL Normal 9.4-12.4 [facility] Comment on above: Performed By: #### L [id number] ####[facility] LAB [address] [place] [address] Maurice Coello M.D. [id number] Platelets (Bld) [#/Vol] 231 10*3/uL Normal 150-400 [facility] Comment on above: Performed By: #### L [id number] ####[facility] LAB [address] [place] [address] Maurice Coello M.D. [id number] RBC (Bld) [#/Vol] 3.94 10*6/uL Low 4.00-5.20 [facility] Comment on above: Performed By: #### L [id number] ####[facility] LAB [address] [place] [address] Maurice Coello M.D. [id number] WBC (Bld) [#/Vol] 11.22 10*3/uL High 4.50-11.00 [facility] Comment on above: Performed By: #### L [id number] #### LAB [address] [place] [address] Maurice Coello M.D. [id number] CK [Catalytic activity/Vol]o n 09-23-2024 Interpretation and review of laboratory results Abnormal [facility] COMPREHENSIVE METABOLIC PANE Jett 09-23-2024 Albumin [Mass/Vol] 3.7 g/dL Normal 3.2-5.2 [facility] Comment on above: Order Comment: Injur y/Trauma or Illness?:Illness/Other How long have you had these symptoms (acute/chronic)?:Chronic Reason for exam?:A-fib [facility] TO READ Type of Exam?:Initial Additional signs and symptoms?:n Performed By: #### 4 [id number] #### LAB [address] [place] [address] Maurice Coello M.D. [id number] ALP [Catalytic activity/Vol] 82 U/L Normal 40-150 [facility] Comment on above: Order Comment: Injur y/Trauma or Illness?:Illness/Other How long have you had these symptoms (acute/chronic)?:Chronic Reason for exam?:A-fib [facility] TO READ Type of Exam?:Initial Additional signs and symptoms?:n Performed By: #### 4 6126 #### LAB [address] [place] [address] Maurice Coello M.D. [id number] ALT [Catalytic activity/Vol] 17 U/L Normal 0-35 U/L [facility] Comment on above: Order Comment: Injur y/Trauma or Illness?:Illness/Other How long have you had these symptoms (acute/chronic)?:Chronic Reason for exam?:A-fib [facility] TO READ Type of Exam?:Initial Additional signs and symptoms?:n Performed By: #### 4 6126 #### LAB [address] [place] [address] Maurice Coello M.D. [id number] Anion gap [Moles/Vol] 13 mmol/L Normal 10-20 [facility] [place] [facility] Comment on above: Order Comment: Injur y/Trauma or Illness?:Illness/Other How long have you had these symptoms (acute/chronic)?:Chronic Reason for exam?:A-fib [facility] TO READ Type of Exam?:Initial Additional signs and symptoms?:n Performed By: #### 4 6126 #### LAB [address] [place] [address] Maurice Coello M.D. [id number] AST [Catalytic activity/Vol] 42 U/L High 0-35 U/L [facility] Comment on above: Order Comment: Injur y/Trauma or Illness?:Illness/Other How long have you had these symptoms (acute/chronic)?:Chronic Reason for exam?:A-fib [facility] TO READ Type of Exam?:Initial Additional signs and symptoms?:n Performed By: #### 4 6196 #### LAB [address] [place] [address] Maurice Coello M.D. [id number] BILIRUBIN TOTAL < Normal 0.0-1.3 [facility] Comment on above: Order Comment: Injur y/Trauma or Illness?:Illness/Other How long have you had these symptoms (acute/chronic)?:Chronic Reason for exam?:A-fib [facility] TO READ Type of Exam?:Initial Additional signs and symptoms?:n Performed By: #### 4 6115 #### LAB [address] [place] [address] Maurice Coello M.D. [id number] Calcium [Mass/Vol] 9.0 mg/dL Normal 8.4-10.2 [facility] Comment on above: Order Comment: Injur y/Trauma or Illness?:Illness/Other How long have you had these symptoms (acute/chronic)?:Chronic Reason for exam?:A-fib [facility] TO READ Type of Exam?:Initial Additional signs and symptoms?:n Performed By: #### 4 6102 #### LAB [address] [place] [address] Maurice Coello M.D. [id number] Chloride [Moles/Vol] 98 mmol/L Normal 98-108 [facility] Comment on above: Order Comment: Injur y/Trauma or Illness?:Illness/Other How long have you had these symptoms (acute/chronic)?:Chronic Reason for exam?:A-fib [facility] TO READ Type of Exam?:Initial Additional signs and symptoms?:n Performed By: #### 4 6112 #### LAB [address] [place] [address] Maurice Coello M.D. [id number] Creatinine [Mass/Vol] 1.28 mg/dL High 0.60-1.10 [facility] [place] [facility] Comment on above: Order Comment: Injur y/Trauma or Illness?:Illness/Other How long have you had these symptoms (acute/chronic)?:Chronic Reason for exam?:A-fib [facility] TO READ Type of Exam?:Initial Additional signs and symptoms?:n Performed By: #### 4 6126 #### LAB [address] [place] [address] Maurice Coello M.D. [id number] EGFR 46 mL/min/1.73 m2 Low >=60 [facility] Comment on above: Order Comment: Injur y/Trauma or Illness?:Illness/Other How long have you had these symptoms (acute/chronic)?:Chronic Reason for exam?:A-fib [facility] TO READ Type of Exam?:Initial Additional signs and symptoms?:n Result Comment: Ericka mated GFR was calculated using the 2020 CKD-EPI creatinine equation. Performed By: #### 4 6126 #### LAB [address] [place] [address] Maurice Coello M.D. [id number] Glucose [Mass/Vol] 121 mg/dL High 65-99 [facility] Comment on above: Order Comment: Injur y/Trauma or Illness?:Illness/Other How long have you had these symptoms (acute/chronic)?:Chronic Reason for exam?:A-fib [facility] TO READ Type of Exam?:Initial Additional signs and symptoms?:n Performed By: #### 4 6126 #### LAB [address] [place] [address] Maurice Coello M.D. [id number] HCO3 (Bld) [Moles/Vol] 30 mmol/L Normal 21-32 [facility] Comment on above: Order Comment: Injur y/Trauma or Illness?:Illness/Other How long have you had these symptoms (acute/chronic)?:Chronic Reason for exam?:A-fib [facility] TO READ Type of Exam?:Initial Additional signs and symptoms?:n Performed By: #### 4 6188 #### LAB [address] [place] [address] Maurice Coello M.D. [id number] Potassium [Moles/Vol] 4.8 mmol/L Normal 3.5-5.1 [facility] [place] [facility] Comment on above: Order Comment: Injur y/Trauma or Illness?:Illness/Other How long have you had these symptoms (acute/chronic)?:Chronic Reason for exam?:A-fib [facility] TO READ Type of Exam?:Initial Additional signs and symptoms?:n Performed By: #### 4 6126 #### LAB [address] [place] [address] Maurice Coello M.D. [id number] Protein [Mass/Vol] 6.4 g/dL Normal 6.0-8.0 [facility] Comment on above: Order Comment: Injur y/Trauma or Illness?:Illness/Other How long have you had these symptoms (acute/chronic)?:Chronic Reason for exam?:A-fib [facility] TO READ Type of Exam?:Initial Additional signs and symptoms?:n Performed By: #### 4 6126 #### LAB [address] [place] [address] Maurice Coello M.D. [id number] Sodium [Moles/Vol] 136 mmol/L Normal 135-145 [facility] Comment on above: Order Comment: Injur y/Trauma or Illness?:Illness/Other How long have you had these symptoms (acute/chronic)?:Chronic Reason for exam?:A-fib [facility] TO READ Type of Exam?:Initial Additional signs and symptoms?:n Performed By: #### 4 6126 #### LAB [address] [place] [address] Maurice Coello M.D. [id number] Urea nitrogen [Mass/Vol] 24 mg/dL Normal 8-25 [facility] Comment on above: Order Comment: Injur y/Trauma or Illness?:Illness/Other How long have you had these symptoms (acute/chronic)?:Chronic Reason for exam?:A-fib [facility] TO READ Type of Exam?:Initial Additional signs and symptoms?:n Performed By: #### 4 6126 #### LAB [address] [place] [id number] Maurice Coello M.D. [id number] Urea nitrogen/Creatinine [Mass ratio] 18.8 mg/mg Normal 10.0-20.0 [facility] Comment on above: Order Comment: Injur y/Trauma or Illness?:Illness/Other How long have you had these symptoms (acute/chronic)?:Chronic Reason for exam?:A-fib [facility] TO READ Type of Exam?:Initial Additional signs and symptoms?:n Performed By: #### 4 6126 #### LAB [address] [place], [place] [address] Maurice Coello M.D. [id number] CPKon 09-23-2024 CPK 478 U/L High 40-170 [facility] Comment on above: Performed By: #### 4 8261 #### LAB [address] [place], [place] [address] Maurice Coello M.D. [id number] CPK NO MBon 09-23-2024 CK [Catalytic activity/Vol] 478 U/L High 40 - 170 U/L [facility] Comprehensive metabolic 2000 panelOrdered By: Rachel Hobson on 09-23-2024 Albumin [Mass/Vol] 3.7 g/dL 3.2 - 5.2 g/dL [facility] ALP [Catalytic activity/Vol] 82 U/L 40 - 150 U/L [facility] ALT [Catalytic activity/Vol] 17 U/L 0-35 U/L [facility] Anion gap [Moles/Vol] 13 mmol/L 10 - 2 0 mmol/L [facility] AST [Catalytic activity/Vol] 42 U/L High 0-35 U/L [facility] Bilirubin [Mass/Vol] mg/dL 0.0 - 1 .3 mg/dL [facility] Calcium [Mass/Vol] 9 mg/dL 8.4 - 10. 2 mg/dL [facility] Chloride [Moles/Vol] 98 mmol/L 98 - 10 8 mmol/L [facility] Creatinine [Mass/Vol] 1.28 mg/dL High 0.60 - 1.10 mg/dL [facility] GFR/1.73 sq M.predicted CKD-EPI (S/P/Bld) [Vol rate/Area] 46 Low - PINF [facility] Comment on above: Estimated GFR was ca lculated using the 2020 CKD-EPI creatinine equation. Glucose [Mass/Vol] 121 mg/dL High 65 - 99 mg/dL [facility] HCO3 [Moles/Vol] 30 mmol/L 21 - 32 mmol/L [facility] Interpretation and review of laboratory results Abnormal [facility] Potassium [Moles/Vol] 4.8 mmol/L 3.5 - 5.1 mmol/L [facility] Protein [Mass/Vol] 6.4 g/dL 6.0 - 8.0 g/dL [facility] Sodium [Moles/Vol] 136 mmol/L 135 - 145 mmol/L [facility] Urea nitrogen [Mass/Vol] 24 mg/dL 8 - 25 mg/dL [facility] Urea nitrogen/Creatinine [Mass ratio] 18.8 mg/mg 10.0 - 20.0 [facility] has implemented the eGFR calculation approach that does not have a coefficient for race that conforms to the NKF-ASN Task Force Recommendations. [facility] ECHOCARDIOGRAM COMPLETEon ECHOCARDIOGRAM COMPLETE Patient Info Name: RADHA SHAFER Age: 64 years : 1960 Gender: Female Ht: 165 cm Wt: 104 kg BSA: 2.23 m2 HR: 73 bpm BP: 153 / 74 mmHg Heart Rhythm: Sinus Rhythm Technical Quality: Fair Exam Date: 09/23/2024 2:31 PM Patient Status: Inpatient Care Management Associate: Martin Mace RCDS Exam Type: ECHOCARDIOGRAM COMPLETE Study Info Indications - Dyspnea R06.00 - Dyspnea, unspecified Referring Physician: ALEKSANDAR Mccoy; [id number] BMI: 38.11 kg/m2 Summary 1. Normal LV size, concentric LVH is present. Normal wall motion. Normal systolic function. LVEF 60 to 65%. 2. Right ventricular size and systolic function are normal. 3. There is grade 1 diastolic dysfunction, consistent with impaired relaxation and low or normal left atrial pressures. 4. No significant valvular disease identified. History/Risk Factors Hypertension: Yes Diabetic Therapy: Oral Myocardial Infarction (OK): No Obesity: Yes Date of Last Tobacco Use: 07/10/2013 Diabetes Mellitus: Yes COPD: On Home Oxygen Tobacco Use: Former Family History: Coronary Artery Disease Procedure(s): Complete two-dimensional, color flow and Doppler transthoracic echocardiogram is performed. Left Ventricle Normal LV size, concentric LVH is present. Normal wall motion. Normal systolic function. LVEF 60 to 65%. Left ventricular chamber dimension is normal. Left ventricular segmental wall motion is normal. There is grade 1 diastolic dysfunction, consistent with impaired relaxation and low or normal left atrial pressures. Right Ventricle Right ventricular size and systolic function are normal. Left Atria Left atrial chamber is normal with a left atrial volume index of 25 ml/m2 by BP MOD. Right Atria Right atrial chamber dimension is normal. Aortic Valve The aortic valve is trileaflet. There is no aortic valve sclerosis. There is no aortic valve stenosis. There is no aortic valve regurgitation. Pulmonic Valve The pulmonic valve is normal. There is no pulmonic valve stenosis. There is trace pulmonic regurgitation. Mitral Valve The mitral valve has normal leaflets. There is no mitral valve stenosis. There is trace mitral valve regurgitation. Tricuspid Valve The tricuspid valve leaflets are normal. There is no significant tricuspid valve stenosis. There is no tricuspid valve regurgitation. RV systolic pressure could not be accurately estimated. Pericardium/Pleural There is no pericardial effusion. Inferior Vena Cava Normal inferior vena cava with >50% collapse upon inspiration consistent with normal right atrial pressure. Aorta The aortic measurements are indexed to age and body surface area. The aortic root is normal measuring 3.1 cm with an index of 1.4 cm/m2. Wall Motion Scoring Wall Motion Scoring Index: 1.00 Left Ventricular Outflow Tract - Name Value Normal - LVOT 2D - LVOT Diameter 2.2 cm LVOT Doppler - LVOT Peak Velocity 0.9 m/s LVOT Peak Gradient 3 mmHg LVOT Mean Gradient 2 mmHg LVOT VTI 23 cm LVOT VTI/AV VTI Ratio 0.9 LVOT Stroke Volume 83 ml LVOT Stroke Index 37.08 ml/m2 Pulmonic Valve - Name Value Normal - RVOT Doppler - RVOT Peak Velocity 73 cm/s RVOT Peak Gradient 1 mmHg RVOT Mean Gradient 1 mmHg RVOT VTI 13 cm Mitral Valve - Name Value Normal - MV Doppler - MV Peak Velocity 1.21 m/s MV Peak Gradient 6 mmHg MV Mean Gradient 3 mmHg MV VTI 36 cm MV Decel Alexander 408 cm/s2 MV PHT 67 ms MV Area (PHT) 3.3 cm2 4.0-5.0 MV Area (Cont Eq VTI) 2.3 cm2 MV Area Index (Cont Eq VTI) 1.04 cm2/m2 MV DVI 1.58 MV Regurgitation Doppler - MR VTI 120 cm MR PISA Radius 0.5 cm MR PISA Alias Velocity 31 cm/s MR ERO (PISA) 0.1 cm2 MR Volume (PISA) 13 ml MV Diastolic Function - MV E Peak Velocity 0.93 m/s MV A Peak Velocity 0.91 m/s MV E/A 1.0 MV Decel Time 229 ms MV Annular TDI - MV Septal e' Velocity 7.8 cm/s >=8.0 MV E/e' (Septal) 11.9 <=8.0 MV Lateral e' Velocity 7.4 cm/s >=9.5 (more content not included)... Normal [facility] Echo completeOrdered By: Sravani Back on 09-23-2024 Aortic valve area 3.70237 cm [facility] Work Phone: AV mean gradient 3.53094 mmHg [facility] Work Phone: AV peak gradient 5.38035 mmHg [facility] Work Phone: EF [phone] % [facility] Work Phone: [facility] Work Phone: Echo completeon 09-23-2024 Patient Info Name: RADHA SHAFER Age: 64 years : 1960 Gender: Female Ht: 165 cm Wt: 104 kg BSA: 2.23 m2 HR: 73 bpm BP: 153 / 74 mmHg Heart Rhythm: Sinus Rhythm Technical Quality: Fair Exam Date: 09/23/2024 2:31 PM Patient Status: Inpatient Care Management Associate: Martin Mace RCDS Exam Type: ECHOCARDIOGRAM COMPLETE Study Info Indications - Dyspnea R06.00 - Dyspnea, unspecified Referring Physician: ALEKSANDAR Mccoy; [id number] BMI: 38.11 kg/m2 Summary 1. Normal LV size, concentric LVH is present. Normal wall motion. Normal systolic function. LVEF 60 to 65%. 2. Right ventricular size and systolic function are normal. 3. There is grade 1 diastolic dysfunction, consistent with impaired relaxation and low or normal left atrial pressures. 4. No significant valvular disease identified. History/Risk Factors Hypertension: Yes Diabetic Therapy: Oral Myocardial Infarction (OK): No Obesity: Yes Date of Last Tobacco Use: 07/10/2013 Diabetes Mellitus: Yes COPD: On Home Oxygen Tobacco Use: Former Family History: Coronary Artery Disease Procedure(s): Complete two-dimensional, color flow and Doppler transthoracic echocardiogram is performed. Left Ventricle Normal LV size, concentric LVH is present. Normal wall motion. Normal systolic function. LVEF 60 to 65%. Left ventricular chamber dimension is normal. Left ventricular segmental wall motion is normal. There is grade 1 diastolic dysfunction, consistent with impaired relaxation and low or normal left atrial pressures. Right Ventricle Right ventricular size and systolic function are normal. Left Atria Left atrial chamber is normal with a left atrial volume index of 25 ml/m2 by BP MOD. Right Atria Right atrial chamber dimension is normal. Aortic Valve The aortic valve is trileaflet. There is no aortic valve sclerosis. There is no aortic valve stenosis. There is no aortic valve regurgitation. Pulmonic Valve The pulmonic valve is normal. There is no pulmonic valve stenosis. There is trace pulmonic regurgitation. Mitral Valve The mitral valve has normal leaflets. There is no mitral valve stenosis. There is trace mitral valve regurgitation. Tricuspid Valve The tricuspid valve leaflets are normal. There is no significant tricuspid valve stenosis. There is no tricuspid valve regurgitation. RV systolic pressure could not be accurately estimated. Pericardium/Pleural There is no pericardial effusion. Inferior Vena Cava Normal inferior vena cava with >50% collapse upon inspiration consistent with normal right atrial pressure. Aorta The aortic measurements are indexed to age and body surface area. The aortic root is normal measuring 3.1 cm with an index of 1.4 cm/m2. Wall Motion Scoring Wall Motion Scoring Index: 1.00 Left Ventricular Outflow Tract - Name Value Normal - LVOT 2D - LVOT Diameter 2.2 cm LVOT Doppler - LVOT Peak Velocity 0.9 m/s LVOT Peak Gradient 3 mmHg LVOT Mean Gradient 2 mmHg LVOT VTI 23 cm LVOT VTI/AV VTI Ratio 0.9 LVOT Stroke Volume 83 ml LVOT Stroke Index 37.08 ml/m2 Pulmonic Valve - Name Value Normal - RVOT Doppler - RVOT Peak Velocity 73 cm/s RVOT Peak Gradient 1 mmHg RVOT Mean Gradient 1 mmHg RVOT VTI 13 cm Mitral Valve - Name Value Normal - MV Doppler - MV Peak Velocity 1.21 m/s MV Peak Gradient 6 mmHg MV Mean Gradient 3 mmHg MV VTI (more content not included)... FUJI SYNAPSE CV Amelia Back MD - 09/23/2024 Patient Info Name: RADHA SHAFER Age: 64 years : 1960 Gender: Female Ht: 165 cm Wt: 104 kg BSA: 2.23 m2 HR: 73 bpm BP: 153 / 74 mmHg Heart Rhythm: Sinus Rhythm Technical Quality: Fair Exam Date: 09/23/2024 2:31 PM Patient Status: Inpatient Care Management Associate: Martin Mace RCDS Exam Type: ECHOCARDIOGRAM COMPLETE Study Info Indications - Dyspnea R06.00 - Dyspnea, unspecified Referring Physician: ALEKSANDAR Mccoy; [id number] BMI: 38.11 kg/m2 Summary 1. Normal LV size, concentric LVH is present. Normal wall motion. Normal systolic function. LVEF 60 to 65%. 2. Right ventricular size and systolic function are normal. 3. There is grade 1 diastolic dysfunction, consistent with impaired relaxation and low or normal left atrial pressures. 4. No significant valvular disease identified. History/Risk Factors Hypertension: Yes Diabetic Therapy: Oral Myocardial Infarction (OK): No Obesity: Yes Date of Last Tobacco Use: 07/10/2013 Diabetes Mellitus: Yes COPD: On Home Oxygen Tobacco Use: Former Family History: Coronary Artery Disease Procedure(s): Complete two-dimensional, color flow and Doppler transthoracic echocardiogram is performed. Left Ventricle Normal LV size, concentric LVH is present. Normal wall motion. Normal systolic function. LVEF 60 to 65%. Left ventricular chamber dimension is normal. Left ventricular segmental wall motion is normal. There is grade 1 diastolic dysfunction, consistent with impaired relaxation and low or normal left atrial pressures. Right Ventricle Right ventricular size and systolic function are normal. Left Atria Left atrial chamber is normal with a left atrial volume index of 25 ml/m2 by BP MOD. Right Atria Right atrial chamber dimension is normal. Aortic Valve The aortic valve is trileaflet. There is no aortic valve sclerosis. There is no aortic valve stenosis. There is no aortic valve regurgitation. Pulmonic Valve The pulmonic valve is normal. There is no pulmonic valve stenosis. There is trace pulmonic regurgitation. Mitral Valve The mitral valve has normal leaflets. There is no mitral valve stenosis. There is trace mitral valve regurgitation. Tricuspid Valve The tricuspid valve leaflets are normal. There is no significant tricuspid valve stenosis. There is no tricuspid valve regurgitation. RV systolic pressure could not be accurately estimated. Pericardium/Pleural There is no pericardial effusion. Inferior Vena Cava Normal inferior vena cava with >50% collapse upon inspiration consistent with normal right atrial pressure. Aorta The aortic measurements are indexed to age and body surface area. The aortic root is normal measuring 3.1 cm with an index of 1.4 cm/m2. Wall Motion Scoring Wall Motion Scoring Index: 1.00 Left Ventricular Outflow Tract - Name Value Normal - LVOT 2D - LVOT Diameter 2.2 cm LVOT Doppler - LVOT Peak Velocity 0.9 m/s LVOT Peak Gradient 3 mmHg LVOT Mean Gradient 2 mmHg LVOT VTI 23 cm LVOT VTI/AV VTI Ratio 0.9 LVOT Stroke Volume 83 ml LVOT Stroke Index 37.08 ml/m2 Pulmonic Valve - Name Value Normal - RVOT Doppler - RVOT Peak Velocity 73 cm/s RVOT Peak Gradient 1 mmHg RVOT Mean Gradient 1 mmHg RVOT VTI 13 cm Mitral Valve - Name Value Normal - MV Doppler - MV Peak Velocity 1.21 m/s MV Peak Gradient 6 mmHg MV Mean Gradient 3 mmHg MV VTI 36 cm MV Decel Alexander 408 cm/s2 MV PHT 67 ms MV Area (PHT) 3.3 cm2 4.0-5.0 MV Area (Cont Eq VTI) 2.3 cm2 MV Area Index (Cont Eq VTI) 1.04 cm2/m2 MV DVI 1.58 MV Regurgitation Doppler - MR VTI 120 cm MR PISA Radius 0.5 cm MR PISA Alias Velocity 31 cm/s MR ERO (PISA) 0.1 cm2 MR Volume (PISA) 13 ml MV Diastolic Function - MV E Peak Velocity 0.93 m/s MV A Peak Velocity 0.91 m/s MV E/A 1.0 MV Decel Time 229 ms MV Annular TDI ------ (more content not included)... [facility] 09-23-2024 Magnesium [Mass/Vol] 2.0 mg/dL Normal 1.6-2.4 [facility] Comment on above: Performed By: #### [id number] #### LAB [address] [place], [place] [address] Maurice Coello M.D. [id number] Magnesium Levelon 09-23-2024 Magnesium [Mass/Vol] 2 mg/dL 1.6 - 2 .4 mg/dL [facility] Magnesium [Mass/Vol]on 09-23 Interpretation and review of laboratory results Normal [facility] NT PRO BNPon 09-23-2024 Natriuretic peptide B (Bld) [Mass/Vol] 2680 pg/mL High 0-300 [facility] Comment on above: Order Comment: Injur y/Trauma or Illness?:Illness/Other How long have you had these symptoms (acute/chronic)?:Chronic Reason for exam?:A-fib [facility] TO READ Type of Exam?:Initial Additional signs and symptoms?:n Performed By: #### [id number] #### [address] [place], [place] [address] Maurice Coello M.D. [id number] NT Pro BNPon 09-23-2024 Natriuretic peptide.B prohormone N-Terminal [Mass/Vol] 2680 pg/mL High 0 - 300 pg/mL [facility] Natriuretic peptide.B prohor curly N-Terminal [Mass/Vol]on 09-23-2024 Interpretation and review of laboratory results Abnormal [facility] Pride Study Cut-offs Rule In: < /= 50 Years >450 pg/mL 51 Years - 75 Years >900 pg/mL 76 Years - 99 Years >1800 pg/mL Rule Out: All patients <300 pg/mL [facility] No Panel InformationOrdered By: Rachel Hobson on 09-23-2024 [facility] BASIC METABOLIC PANELon 09-06 Anion gap [Moles/Vol] 16 mmol/L Normal - [facility] [place] [facility] Comment on above: Order Comment: Injur y/Trauma or Illness?:Illness/Other How long have you had these symptoms (acute/chronic)?:Acute Reason for exam?:sob. Hx of COPD History of cancer?:unknown Surgeries, chemotherapy, or radiation?:cholecystectomy, hysterectomy, oophrectomy, left knee replacement Type of Exam?:Initial Additional signs and symptoms?:. Performed By: #### 4 [id number] #### [address] [place] [address] Maurice Coello M.D. [id number] Calcium [Mass/Vol] 8.3 mg/dL Low 8.4-10.2 [facility] Comment on above: Order Comment: Injur y/Trauma or Illness?:Illness/Other How long have you had these symptoms (acute/chronic)?:Acute Reason for exam?:sob. Hx of COPD History of cancer?:unknown Surgeries, chemotherapy, or radiation?:cholecystectomy, hysterectomy, oophrectomy, left knee replacement Type of Exam?:Initial Additional signs and symptoms?:. Performed By: #### 4 6199 #### [facility] [address] [place] [address] Maurice Coello M.D. [id number] Chloride [Moles/Vol] 93 mmol/L Low 98-108 [facility] Comment on above: Order Comment: Injur y/Trauma or Illness?:Illness/Other How long have you had these symptoms (acute/chronic)?:Acute Reason for exam?:sob. Hx of COPD History of cancer?:unknown Surgeries, chemotherapy, or radiation?:cholecystectomy, hysterectomy, oophrectomy, left knee replacement Type of Exam?:Initial Additional signs and symptoms?:. Performed By: #### 4 [id number] #### [facility] [address] [place] [address] Maurice Coello M.D. [id number] Creatinine [Mass/Vol] 1.75 mg/dL High 0.60-1.10 [facility] [place] [facility] Comment on above: Order Comment: Injur y/Trauma or Illness?:Illness/Other How long have you had these symptoms (acute/chronic)?:Acute Reason for exam?:sob. Hx of COPD History of cancer?:unknown Surgeries, chemotherapy, or radiation?:cholecystectomy, hysterectomy, oophrectomy, left knee replacement Type of Exam?:Initial Additional signs and symptoms?:. Performed By: #### 4 6104 #### [facility] [address] [place] [address] Maurice Coello M.D. [id number] EGFR 32 mL/min/1.73 m2 Low >=60 [facility] Comment on above: Order Comment: Injur y/Trauma or Illness?:Illness/Other How long have you had these symptoms (acute/chronic)?:Acute Reason for exam?:sob. Hx of COPD History of cancer?:unknown Surgeries, chemotherapy, or radiation?:cholecystectomy, hysterectomy, oophrectomy, left knee replacement Type of Exam?:Initial Additional signs and symptoms?:. Result Comment: Ericka mated GFR was calculated using the 2020 CKD-EPI creatinine equation. Performed By: #### 4 6124 #### [facility] [address] [place] [address] Maurice Coello M.D. [id number] Glucose [Mass/Vol] 272 mg/dL High 65-99 [facility] Comment on above: Order Comment: Injur y/Trauma or Illness?:Illness/Other How long have you had these symptoms (acute/chronic)?:Acute Reason for exam?:sob. Hx of COPD History of cancer?:unknown Surgeries, chemotherapy, or radiation?:cholecystectomy, hysterectomy, oophrectomy, left knee replacement Type of Exam?:Initial Additional signs and symptoms?:. Performed By: #### 4 6111 #### [facility] [address] [place] [address] Maurice Coello M.D. [id number] HCO3 (Bld) [Moles/Vol] 29 mmol/L Normal 21-32 [facility] Comment on above: Order Comment: Injur y/Trauma or Illness?:Illness/Other How long have you had these symptoms (acute/chronic)?:Acute Reason for exam?:sob. Hx of COPD History of cancer?:unknown Surgeries, chemotherapy, or radiation?:cholecystectomy, hysterectomy, oophrectomy, left knee replacement Type of Exam?:Initial Additional signs and symptoms?:. Performed By: #### 4 [id number] #### [facility] [address] [place] [address] Maurice Coello M.D. [id number] Potassium [Moles/Vol] 5.0 mmol/L Normal 3.5-5.1 [facility] [place] [facility] Comment on above: Order Comment: Injur y/Trauma or Illness?:Illness/Other How long have you had these symptoms (acute/chronic)?:Acute Reason for exam?:sob. Hx of COPD History of cancer?:unknown Surgeries, chemotherapy, or radiation?:cholecystectomy, hysterectomy, oophrectomy, left knee replacement Type of Exam?:Initial Additional signs and symptoms?:. Performed By: #### 4 6139 #### [facility] [address] [place] [address] Maurice Coello M.D. [id number] Sodium [Moles/Vol] 133 mmol/L Low 135-145 [facility] Comment on above: Order Comment: Injur y/Trauma or Illness?:Illness/Other How long have you had these symptoms (acute/chronic)?:Acute Reason for exam?:sob. Hx of COPD History of cancer?:unknown Surgeries, chemotherapy, or radiation?:cholecystectomy, hysterectomy, oophrectomy, left knee replacement Type of Exam?:Initial Additional signs and symptoms?:. Performed By: #### 4 6196 #### [facility] [address] [place] [address] Maurice Coello M.D. [id number] Urea nitrogen [Mass/Vol] 31 mg/dL High 8-25 [facility] Comment on above: Order Comment: Injur y/Trauma or Illness?:Illness/Other How long have you had these symptoms (acute/chronic)?:Acute Reason for exam?:sob. Hx of COPD History of cancer?:unknown Surgeries, chemotherapy, or radiation?:cholecystectomy, hysterectomy, oophrectomy, left knee replacement Type of Exam?:Initial Additional signs and symptoms?:. Performed By: #### 4 6118 #### [facility] [address] [place] [address] Maurice Coello M.D. [id number] Urea nitrogen/Creatinine [Mass ratio] 17.7 mg/mg Normal 10.0-20.0 [facility] Comment on above: Order Comment: Injur y/Trauma or Illness?:Illness/Other How long have you had these symptoms (acute/chronic)?:Acute Reason for exam?:sob. Hx of COPD History of cancer?:unknown Surgeries, chemotherapy, or radiation?:cholecystectomy, hysterectomy, oophrectomy, left knee replacement Type of Exam?:Initial Additional signs and symptoms?:. Performed By: #### 4 6124 ####[facility] [address] [place], [place] [address] Maurice Coello M.D. [id number] Bacteria identified Aer cx N om (Sput)Ordered By: Nahum Coello on 09-22-2024 Microscopic observation Gram stain Nom (Sput) Specimen screened and found unsatisfactory for culture. [facility] Basic metabolic 2000 panelon 09-22-2024 Anion gap [Moles/Vol] 16 mmol/L 10 - 2 0 mmol/L [facility] Calcium [Mass/Vol] 8.3 mg/dL Low 8.4 - 10. 2 mg/dL [facility] Chloride [Moles/Vol] 93 mmol/L Low 98 - 10 8 mmol/L [facility] Creatinine [Mass/Vol] 1.75 mg/dL High 0.60 - 1.10 mg/dL [facility] GFR/1.73 sq M.predicted CKD-EPI (S/P/Bld) [Vol rate/Area] 32 Low - PINF [facility] Comment on above: Estimated GFR was ca lculated using the 2020 CKD-EPI creatinine equation. Glucose [Mass/Vol] 272 mg/dL High 65 - 99 mg/dL [facility] HCO3 [Moles/Vol] 29 mmol/L 21 - 32 mmol/L [facility] Potassium [Moles/Vol] 5 mmol/L 3.5 - 5.1 mmol/L [facility] Sodium [Moles/Vol] 133 mmol/L Low 135 - 145 mmol/L [facility] Urea nitrogen [Mass/Vol] 31 mg/dL High 8 - 25 mg/dL [facility] Urea nitrogen/Creatinine [Mass ratio] 17.7 mg/mg 10.0 - 20.0 [facility] has implemented the eGFR calculation approach that does not have a coefficient for race that conforms to the NKF-ASN Task Force Recommendations. [facility] CBCon 09-22-2024 AUTO NRBC 0.0 % Normal [facility] Comment on above: Performed By: #### L [id number] #### [facility] [address] [place], [place] [address] Maurice Coello M.D. [id number] AUTO NRBC ABS COUNT 0.00 K/mcL Normal 0.00-0.00 [facility] Comment on above: Performed By: #### L [id number] #### [facility] [address] [place] [address] Maurice Coello M.D. [id number] Erythrocyte distribution width (RBC) [Ratio] 14.3 % Normal 11.6-14.8 [facility] Comment on above: Performed By: #### L [id number] #### [facility] [address] [place] [address] Maurice Coello M.D. [id number] Hematocrit (Bld) [Volume fraction] 35.1 % Low 36.0-46.0 [facility] Comment on above: Performed By: #### L [id number] #### [facility] [address] [place] [address] Maurice Coello M.D. [id number] Hemoglobin (Bld) [Mass/Vol] 10.3 g/dL Low 12.0-16.0 [facility] Comment on above: Performed By: #### L [id number] #### [facility] [address] [place] [address] Maurice Coello M.D. [id number] MCH (RBC) [Entitic mass] 26.3 pg Normal 26.0-34.0 [facility] Comment on above: Performed By: #### L [id number] #### [facility] [address] [place] [address] Maurice Coello M.D. [id number] MCV (RBC) [Entitic vol] 89.5 fL Normal 80.0-100.0 [facility] Comment on above: Performed By: #### L [id number] #### [facility] [address] [place] [address] Maurice Coello M.D. [id number] MEAN CORPUSCULAR HEMOGLOBIN CONC 29.3 g/dL Low 31.0-37.0 [facility] Comment on above: Performed By: #### L [id number] #### [facility] [address] [place] [address] Maurice Coello M.D. [id number] Platelet mean volume (Bld) [Entitic vol] 10.3 fL Normal 9.4-12.4 [facility] Comment on above: Performed By: #### L [id number] #### [facility] [address] [place] [address] Maurice Coello M.D. [id number] Platelets (Bld) [#/Vol] 194 10*3/uL Normal 150-400 [facility] Comment on above: Performed By: #### L [id number] #### [facility] [address] [place] [address] Maurice Coello M.D. [id number] RBC (Bld) [#/Vol] 3.92 10*6/uL Low 4.00-5.20 [facility] Comment on above: Performed By: #### L [id number] #### [facility] [address] [place] [address] Maurice Coello M.D. [id number] WBC (Bld) [#/Vol] 7.07 10*3/uL Normal 4.50-11.00 [facility] Comment on above: Performed By: #### L [id number] #### [facility] [address] [place] [address] Maurice Coello M.D. [id number] CBC panel Auto (Bld)on 09-22 Erythrocyte distribution width (RBC) [Entitic vol] 14.3 % 11.6 - 14.8 % [facility] Hematocrit (Bld) [Volume fraction] 35.1 % Low 36.0 - 46.0 % [facility] Hemoglobin (Bld) [Mass/Vol] 10.3 g/dL Low 12.0 - 16.0 g/dL [facility] Interpretation and review of laboratory results Abnormal [facility] MCH (RBC) [Entitic mass] 26.3 pg 26.0 - 34.0 pg [facility] MCHC (RBC) [Mass/Vol] 29.3 g/dL Low 31.0 - 37.0 g/dL [facility] MCV (RBC) [Entitic vol] 89.5 fL 80.0 - 100.0 fL [facility] Nucleated RBC (Bld) [#/Vol] 0 10*3/uL [facility] Nucleated RBC/100 WBC (Bld) [Ratio] 0 % [facility] Platelet mean volume (Bld) [Entitic vol] 10.3 fL 9.4 - 12.4 fL [facility] Platelets (Bld) [#/Vol] 194 10*3/uL [facility] RBC (Bld) [#/Vol] 3.92 10*6/uL Low [facility] (Bld) [#/Vol] 7.07 10*3/uL [facility] ealth [facility] EKGon 09-22-2024 [facility] LEGIONELLA ANTIGEN, URINEon 09-22-2024 LEGIONELLA ANTIGEN, URINE LEGIONELLA ANTIGEN Negative for Legionella antigen COMMENT: Results may be affected if patient is on diuretics. INTERPRETATION OF RESULTS: Test detects Legionella pneumophilia serogroup 1 antigens in urine. Legionnaires disease cannot be ruled out since other serogroups and species may also cause disease. Normal [facility] Comment on above: Performed By: #### 4 [id number] ####[facility] [address] [place], [place] [address] Maurice Coello M.D. [id number] Legionella Antigen, UrineOrd ered By: Malgorzata Carlton on 09-22-2024 Interpretation and review of laboratory results Normal [facility] L. pneumophila Ag Ql (U) Negative Negative for Legionella antigen [facility] Comment on above: COMMENT: Results may be affected if patient is on diuretics. INTERPRETATION OF RESULTS: Test detects Legionella pneumophilia serogroup 1 antigens in urine. Legionnaires disease cannot be ruled out since other serogroups and species may also cause disease. [facility] M. pneumoniae IgM Ql (S)Orde red By: Vane Garzon on 09-22-2024 Interpretation and review of laboratory results Normal [facility] M. pneumoniae IgM IA Qn (S) Non-Reactive for Mycoplasma pneumoniae IgM Non-Reactive for Mycoplasma pneumoniae IgM [facility] Interpretation Non-Reactive: Absence of IgM to Mycoplasma pneumoniae or levels below the limit of the assay. [facility] MAGNESIUM LEVELon 09-22-2024 Magnesium [Mass/Vol] 1.9 mg/dL Normal 1.6-2.4 [facility] Comment on above: Performed By: #### L [id number] #### [facility] [address] [place], [place] [address] Maurice Coello M.D. [id number] MRSA DNA Amplified Probeon 1 11-22-2023 MRSA DNA CATRINA+probe Ql (Unsp spec) Negative Not Detected, MRSA NEGATIVE [facility] MRSA DNA CATRINA+probe Ql (Unsp spec)on 09-22-2024 Interpretation and review of laboratory results Normal [facility] Magnesiumon 09-22-2024 Magnesium [Mass/Vol] 1.9 mg/dL 1.6 - 2 .4 mg/dL [facility] Magnesium [Mass/Vol]on 09-22 Interpretation and review of laboratory results Normal [facility] No Panel Informationon 09-22 Interpretation and review of laboratory results Abnormal [facility] PHOSPHORUSon 09-22-2024 Phosphate [Mass/Vol] 4.3 mg/dL High 2.8-4.1 [facility] Comment on above: Performed By: #### 4 [id number] #### LAB [address] [address] Maurice Coello M.D. [id number] Phosphoruson 09-22-2024 Phosphate [Mass/Vol] 4.3 mg/dL High 2.8 - 4 .1 mg/dL [facility] S. pneumoniae Urine Antigeno n 09-22-2024 Interpretation and review of laboratory results Normal [facility] S. pneumoniae Ag Ql (U) Negative Pres umptive Negative for Pneumococcal pneumoniae [facility] Comment on above: A negative result cristina ggests no current or recent pneumococcal infection. A negative result does not rule out Streptococcus pneumoniae infection since the antigen present in the sample may be below the detection limit of the test. [facility] S.PNEUMONIAE URINE ANTIGENon 09-22-2024 S.PNEUMONIAE URINE ANTIGEN STREP PNEUMONIAE ANTIGEN, URINE Presumptive Negative for Pneumococcal pneumoniae A negative result suggests no current or recent pneumococcal infection. A negative result does not rule out Streptococcus pneumoniae infection since the antigen present in the sample may be below the detection limit of the test. Normal [facility] Comment on above: Performed By: #### 4 [id number] #### LAB [address] [address] Maurice Coello M.D. [id number] SPUTUM AEROBIC CULTUREon SPUTUM AEROBIC CULTURE RESPIRATORY CULTU RE See Gram Stain Result GRAM STAIN RESULT Specimen screened and found unsatisfactory for culture. [facility] Comment on above: Performed By: #### 4 [id number] ####[facility] [address] [place], [place] [address] Arnel Marie M.D. [id number] Sputum Aerobic CultureOrdere d By: Nahum Coello on 09-22-2024 Bacteria identified Aer cx Nom (Sput) See Gram Stain Result [facility] TROPONINon 09-22-2024 TROPONIN T DELTA CHANGE INTERPRETATION Probable non-acute cardiac injury or late presentation of acute injury. [facility] Comment on above: Performed By: #### L [id number] #### [facility] [address] [address] Maurice Coello M.D. [id number] TROPONIN T DELTA DIFFERENCE -5 ng/L Normal < = -/+ 7 change [facility] Comment on above: Performed By: #### L [id number] #### [facility] [address] [address] Maurice Coello M.D. [id number] TROPONIN T NG/L 15 ng/L Off scale high <=14 [facility] Comment on above: Performed By: #### L [id number] #### [facility] [address] [address] Maurice Coello M.D. [id number] TROPONIN T DELTA CHANGE INTERPRETATION Probable non-acute cardiac injury or late presentation of acute injury. [facility] Comment on above: Performed By: #### 4 [id number] #### [facility] [address] [address] Maurice Coello M.D. [id number] TROPONIN T DELTA DIFFERENCE -5 ng/L Normal < = -/+ 7 change [facility] Comment on above: Performed By: #### 4 6124 #### [facility] [address] [address] Maurice Coello M.D. [id number] TROPONIN T NG/L 15 ng/L Off scale high <=14 [facility] Comment on above: Performed By: #### 4 [id number] #### LAB [address] [place], [place] [address] Maurice Coello M.D. [id number] Troponin x 2 (Now and Repeat in 3 hours)on 09-22-2024 Delta Difference Troponin T -5 ng/L < = -/+ 7 change [facility] Interp Troponin T Delta Change Probable non-acute cardiac injury or late presentation of acute injury. [facility] Interpretation and review of laboratory results Abnormal [facility] Troponin T 15 ng/L Critically high NINF - 14 ng/L [facility] Delta Difference Troponin T -5 ng/L < = -/+ 7 change [facility] Interp Troponin T Delta Change Probable non-acute cardiac injury or late presentation of acute injury. [facility] Interpretation and review of laboratory results Abnormal [facility] Troponin T 15 ng/L Critically high NINF - 14 ng/L [facility] BLOOD CULTURE AEROBIC/ANAERO BICon 09-21-2024 BLOOD CULTURE AEROBIC/ANAEROBIC BLOOD CULTURE No Growth after 5 days Normal [facility] Comment on above: Performed By: #### 4 [id number] #### LAB [address] [place], [place] [address] Maurice Coello M.D. [id number] CBC Auto Differentialon 09-06 Basophils (Bld) [#/Vol] 0.07 10*3/uL [facility] Basophils/100 WBC (Bld) 0.7 % [facility] Eosinophils (Bld) [#/Vol] 0.14 10*3/uL [facility] Eosinophils/100 WBC (Bld) 1.5 % [facility] Erythrocyte distribution width (RBC) [Entitic vol] 14.4 % 11.6 - 14.8 % [facility] Hematocrit (Bld) [Volume fraction] 36.7 % 36.0 - 46.0 % [facility] Hemoglobin (Bld) [Mass/Vol] 10.8 g/dL Low 12.0 - 16.0 g/dL [facility] Immature granulocytes (Bld) [#/Vol] 0.03 10*3/uL [facility] Immature granulocytes/100 WBC (Bld) 0.3 % [facility] Comment on above: The IG parameter is the percentage of metamyelocytes, myelocytes and promyelocytes. An immature granulocyte count (IG) of 1% or more suggests the possibility of infection, an IG count of 3% is very likely related to an infection. Interpretation and review of laboratory results Abnormal [facility] Lymphocytes (Bld) [#/Vol] 1.21 10*3/uL [facility] Lymphocytes/100 WBC (Bld) 12.8 % [facility] MCH (RBC) [Entitic mass] 26.3 pg 26.0 - 34.0 pg [facility] MCHC (RBC) [Mass/Vol] 29.4 g/dL Low 31.0 - 37.0 g/dL [facility] MCV (RBC) [Entitic vol] 89.5 fL 80.0 - 100.0 fL [facility] Monocytes (Bld) [#/Vol] 0.62 10*3/uL [facility] Monocytes/100 WBC (Bld) 6.6 % [facility] Neutrophils (Bld) [#/Vol] 7.37 10*3/uL High [facility] Neutrophils/100 WBC (Bld) 78.1 % [facility] Nucleated RBC (Bld) [#/Vol] 0 10*3/uL [facility] Nucleated RBC/100 WBC (Bld) [Ratio] 0 % [facility] Platelet mean volume (Bld) [Entitic vol] 10 fL 9.4 - 12.4 fL [facility] Platelets (Bld) [#/Vol] 249 10*3/uL [facility] RBC (Bld) [#/Vol] 4.1 10*6/uL [facility] alth WBC (Bld) [#/Vol] 9.44 10*3/uL [facility] CBC WITH AUTO DIFFERENTIALon 09-21-2024 AUTO NRBC 0.0 % Normal [facility] Comment on above: Performed By: #### L [id number] #### LAB [address] [place], [place] [address] Maurice Coello M.D. [id number] AUTO NRBC ABS COUNT 0.00 K/mcL Normal 0.00-0.00 [facility] Comment on above: Performed By: #### L [id number] #### LAB [address] [place], [place] [address] Maurice Coello M.D. [id number] BASOPHILS ABSOLUTE COUNT 0.07 K/mcL Normal 0.00-0.30 [facility] Comment on above: Performed By: #### L [id number] #### LAB [address] [address] Maurice Coello M.D. [id number] Basophils/100 WBC (Bld) 0.7 % Normal [facility] Comment on above: Performed By: #### L [id number] #### LAB [address] [address] Maurice Coello M.D. [id number] Eosinophils (Bld) [#/Vol] 0.14 10*3/uL Normal 0.00-0.50 [facility] Comment on above: Performed By: #### L [id number] #### LAB [address] [address] Maurice Coello M.D. [id number] Eosinophils/100 WBC (Bld) 1.5 % Normal [facility] Comment on above: Performed By: #### L [id number] #### LAB [address] [address] Maurice Coello M.D. [id number] Erythrocyte distribution width (RBC) [Ratio] 14.4 % Normal 11.6-14.8 [facility] Comment on above: Performed By: #### L [id number] #### LAB [address] [address] Maurice Coello M.D. [id number] Hematocrit (Bld) [Volume fraction] 36.7 % Normal 36.0-46.0 [facility] Comment on above: Performed By: #### L [id number] #### LAB [address] [address] Maurice Coello M.D. [id number] Hemoglobin (Bld) [Mass/Vol] 10.8 g/dL Low 12.0-16.0 [facility] Comment on above: Performed By: #### L [id number] #### [facility] LAB [address] [address] Maurice Coello M.D. [id number] IG ABSOLUTE 0.03 K/mcL Normal 0.00-0.30 [facility] Comment on above: Performed By: #### L [id number] #### LAB [address] [address] Maurice Coello M.D. [id number] IG PERCENT 0.30 % [facility] Comment on above: Result Comment: The IG parameter is the percentage of metamyelocytes, myelocytes and promyelocytes. An immature granulocyte count (IG) of 1% or more suggests the possibility of infection, an IG count of 3% is very likely related to an infection. Performed By: #### L [id number] #### LAB [address] [address] Maurice Coello M.D. [id number] Lymphocytes (Bld) [#/Vol] 1.21 10*3/uL Normal 0.90-4.00 [facility] Comment on above: Performed By: #### L [id number] #### LAB [address] [address] Maurice Coelol M.D. [id number] Lymphocytes/100 WBC (Bld) 12.8 % [facility] Comment on above: Performed By: #### L [id number] #### LAB [address] [address] Maurice Coello M.D. [id number] MCH (RBC) [Entitic mass] 26.3 pg Normal 26.0-34.0 [facility] Comment on above: Performed By: #### L [id number] #### LAB [address] [address] Maurice Coello M.D. [id number] MCV (RBC) [Entitic vol] 89.5 fL Normal 80.0-100.0 [facility] Comment on above: Performed By: #### L [id number] #### LAB [address] [address] Maurice Coello M.D. [id number] MEAN CORPUSCULAR HEMOGLOBIN CONC 29.4 g/dL Low 31.0-37.0 [facility] Comment on above: Performed By: #### L [id number] #### LAB [address] [address] Maurice Coello M.D. [id number] Monocytes (Bld) [#/Vol] 0.62 10*3/uL Normal 0.30-0.90 [facility] Comment on above: Performed By: #### L [id number] #### LAB [address] [address] Maurice Coello M.D. [id number] Monocytes/100 WBC (Bld) 6.6 % Normal [facility] Comment on above: Performed By: #### L [id number] #### LAB [address] [address] Maurice Coello M.D. [id number] NEUTROPHILS ABSOLUTE COUNT 7.37 K/mcL High 1.70-7.00 [facility] Comment on above: Performed By: #### L [id number] #### LAB [address] [address] Maurice Coello M.D. [id number] Neutrophils/100 WBC (Bld) 78.1 % Normal [facility] Comment on above: Performed By: #### L [id number] #### LAB [address] [address] Mauriec Coello M.D. [id number] Platelet mean volume (Bld) [Entitic vol] 10.0 fL Normal 9.4-12.4 [facility] Comment on above: Performed By: #### L [id number] #### LAB [address] [address] Maurice Coello M.D. [id number] Platelets (Bld) [#/Vol] 249 10*3/uL Normal 150-400 [facility] Comment on above: Performed By: #### L [id number] #### LAB [address] [address] Maurice Coello M.D. [id number] RBC (Bld) [#/Vol] 4.10 10*6/uL Normal 4.00-5.20 [facility] Comment on above: Performed By: #### L [id number] #### [facility] LAB [address] [address] Maurice Coello M.D. [id number] WBC (Bld) [#/Vol] 9.44 10*3/uL Normal 4.50-11.00 [facility] Comment on above: Performed By: #### L [id number] #### [facility] LAB [address] [address] Maurice Coello M.D. [id number] CK [Catalytic activity/Vol]o n 09-21-2024 Interpretation and review of laboratory results Abnormal [facility] COMPREHENSIVE METABOLIC PANE Jett 09-21-2024 Albumin [Mass/Vol] 4.1 g/dL Normal 3.2-5.2 [facility] Comment on above: Order Comment: Injur y/Trauma or Illness?:Illness/Other How long have you had these symptoms (acute/chronic)?:Acute Reason for exam?:sob. Hx of COPD History of cancer?:unknown Surgeries, chemotherapy, or radiation?:cholecystectomy, hysterectomy, oophrectomy, left knee replacement Type of Exam?:Initial Additional signs and symptoms?:. Performed By: #### 4 6126 ####[facility] LAB [address] [address] Maurice Coello M.D. [id number] ALP [Catalytic activity/Vol] 97 U/L Normal 40-150 [facility] Comment on above: Order Comment: Injur y/Trauma or Illness?:Illness/Other How long have you had these symptoms (acute/chronic)?:Acute Reason for exam?:sob. Hx of COPD History of cancer?:unknown Surgeries, chemotherapy, or radiation?:cholecystectomy, hysterectomy, oophrectomy, left knee replacement Type of Exam?:Initial Additional signs and symptoms?:. Performed By: #### 4 6126 ####[facility] LAB [address] [address] Maurice Coello M.D. [id number] ALT [Catalytic activity/Vol] 23 U/L Normal 0-35 U/L [facility] Comment on above: Order Comment: Injur y/Trauma or Illness?:Illness/Other How long have you had these symptoms (acute/chronic)?:Acute Reason for exam?:sob. Hx of COPD History of cancer?:unknown Surgeries, chemotherapy, or radiation?:cholecystectomy, hysterectomy, oophrectomy, left knee replacement Type of Exam?:Initial Additional signs and symptoms?:. Performed By: #### 4 6158 #### LAB [address] [address] Maurice Coello M.D. [id number] Anion gap [Moles/Vol] 15 mmol/L Normal 10-20 [facility] [place] [facility] Comment on above: Order Comment: Injur y/Trauma or Illness?:Illness/Other How long have you had these symptoms (acute/chronic)?:Acute Reason for exam?:sob. Hx of COPD History of cancer?:unknown Surgeries, chemotherapy, or radiation?:cholecystectomy, hysterectomy, oophrectomy, left knee replacement Type of Exam?:Initial Additional signs and symptoms?:. Performed By: #### 4 6126 #### LAB [address] [address] Maurice Coello M.D. [id number] AST [Catalytic activity/Vol] 47 U/L High 0-35 U/L [facility] Comment on above: Order Comment: Injur y/Trauma or Illness?:Illness/Other How long have you had these symptoms (acute/chronic)?:Acute Reason for exam?:sob. Hx of COPD History of cancer?:unknown Surgeries, chemotherapy, or radiation?:cholecystectomy, hysterectomy, oophrectomy, left knee replacement Type of Exam?:Initial Additional signs and symptoms?:. Result Comment: Slig htly Hemolyzed Performed By: #### 4 6187 #### LAB [address] [address] Maurice Coello M.D. [id number] Bilirubin [Mass/Vol] 0.2 mg/dL Normal 0.0-1.3 [facility] Comment on above: Order Comment: Injur y/Trauma or Illness?:Illness/Other How long have you had these symptoms (acute/chronic)?:Acute Reason for exam?:sob. Hx of COPD History of cancer?:unknown Surgeries, chemotherapy, or radiation?:cholecystectomy, hysterectomy, oophrectomy, left knee replacement Type of Exam?:Initial Additional signs and symptoms?:. Performed By: #### 4 6159 #### LAB [address] [id number] Maurice Coello M.D. [id number] Calcium [Mass/Vol] 8.8 mg/dL Normal 8.4-10.2 [facility] Comment on above: Order Comment: Injur y/Trauma or Illness?:Illness/Other How long have you had these symptoms (acute/chronic)?:Acute Reason for exam?:sob. Hx of COPD History of cancer?:unknown Surgeries, chemotherapy, or radiation?:cholecystectomy, hysterectomy, oophrectomy, left knee replacement Type of Exam?:Initial Additional signs and symptoms?:. Performed By: #### 4 6126 #### LAB [address] [address] Maurice Coello M.D. [id number] Chloride [Moles/Vol] 94 mmol/L Low 98-108 [facility] Comment on above: Order Comment: Injur y/Trauma or Illness?:Illness/Other How long have you had these symptoms (acute/chronic)?:Acute Reason for exam?:sob. Hx of COPD History of cancer?:unknown Surgeries, chemotherapy, or radiation?:cholecystectomy, hysterectomy, oophrectomy, left knee replacement Type of Exam?:Initial Additional signs and symptoms?:. Performed By: #### 4 6119 ####[facility] LAB [address] [address] Maurice Coello M.D. [id number] Creatinine [Mass/Vol] 1.72 mg/dL High 0.60-1.10 [facility] [place] [facility] Comment on above: Order Comment: Injur y/Trauma or Illness?:Illness/Other How long have you had these symptoms (acute/chronic)?:Acute Reason for exam?:sob. Hx of COPD History of cancer?:unknown Surgeries, chemotherapy, or radiation?:cholecystectomy, hysterectomy, oophrectomy, left knee replacement Type of Exam?:Initial Additional signs and symptoms?:. Performed By: #### 4 6105 #### LAB [address] [address] Maurice Coello M.D. [id number] EGFR 32 mL/min/1.73 m2 Low >=60 [facility] Comment on above: Order Comment: Injur y/Trauma or Illness?:Illness/Other How long have you had these symptoms (acute/chronic)?:Acute Reason for exam?:sob. Hx of COPD History of cancer?:unknown Surgeries, chemotherapy, or radiation?:cholecystectomy, hysterectomy, oophrectomy, left knee replacement Type of Exam?:Initial Additional signs and symptoms?:. Result Comment: Ericka mated GFR was calculated using the 2020 CKD-EPI creatinine equation. Performed By: #### 4 6126 ####[facility] [address] [address] Maurice Coello M.D. [id number] Glucose [Mass/Vol] 102 mg/dL High 65-99 [facility] Comment on above: Order Comment: Injur y/Trauma or Illness?:Illness/Other How long have you had these symptoms (acute/chronic)?:Acute Reason for exam?:sob. Hx of COPD History of cancer?:unknown Surgeries, chemotherapy, or radiation?:cholecystectomy, hysterectomy, oophrectomy, left knee replacement Type of Exam?:Initial Additional signs and symptoms?:. Performed By: #### 4 6126 #### LAB [address] [address] Maurice Coello M.D. [id number] HCO3 (Bld) [Moles/Vol] 30 mmol/L Normal 21-32 [facility] Comment on above: Order Comment: Injur y/Trauma or Illness?:Illness/Other How long have you had these symptoms (acute/chronic)?:Acute Reason for exam?:sob. Hx of COPD History of cancer?:unknown Surgeries, chemotherapy, or radiation?:cholecystectomy, hysterectomy, oophrectomy, left knee replacement Type of Exam?:Initial Additional signs and symptoms?:. Performed By: #### 4 61 #### LAB [address] [address] Maurice Coello M.D. [id number] Potassium [Moles/Vol] 5.8 mmol/L High 3.5-5.1 [facility] [place] [facility] Comment on above: Order Comment: Injur y/Trauma or Illness?:Illness/Other How long have you had these symptoms (acute/chronic)?:Acute Reason for exam?:sob. Hx of COPD History of cancer?:unknown Surgeries, chemotherapy, or radiation?:cholecystectomy, hysterectomy, oophrectomy, left knee replacement Type of Exam?:Initial Additional signs and symptoms?:. Result Comment: Sandro htly Hemolyzed Performed By: #### 4 6128 #### LAB [address] [address] Maurice Coello M.D. [id number] Protein [Mass/Vol] 7.3 g/dL Normal 6.0-8.0 [facility] Comment on above: Order Comment: Injur y/Trauma or Illness?:Illness/Other How long have you had these symptoms (acute/chronic)?:Acute Reason for exam?:sob. Hx of COPD History of cancer?:unknown Surgeries, chemotherapy, or radiation?:cholecystectomy, hysterectomy, oophrectomy, left knee replacement Type of Exam?:Initial Additional signs and symptoms?:. Performed By: #### 4 6126 #### LAB [address] [address] Maurice Coello M.D. [id number] Sodium [Moles/Vol] 133 mmol/L Low 135-145 [facility] Comment on above: Order Comment: Injur y/Trauma or Illness?:Illness/Other How long have you had these symptoms (acute/chronic)?:Acute Reason for exam?:sob. Hx of COPD History of cancer?:unknown Surgeries, chemotherapy, or radiation?:cholecystectomy, hysterectomy, oophrectomy, left knee replacement Type of Exam?:Initial Additional signs and symptoms?:. Performed By: #### 4 6116 #### LAB [address] [address] Maurice Coello M.D. [id number] Urea nitrogen [Mass/Vol] 32 mg/dL High 8- [facility] Comment on above: Order Comment: Injur y/Trauma or Illness?:Illness/Other How long have you had these symptoms (acute/chronic)?:Acute Reason for exam?:sob. Hx of COPD History of cancer?:unknown Surgeries, chemotherapy, or radiation?:cholecystectomy, hysterectomy, oophrectomy, left knee replacement Type of Exam?:Initial Additional signs and symptoms?:. Performed By: #### 4 6126 #### LAB [address] [place], [place] [address] Maurice Coello M.D. [id number] Urea nitrogen/Creatinine [Mass ratio] 18.6 mg/mg Normal 10.0-20.0 [facility] Comment on above: Order Comment: Injur y/Trauma or Illness?:Illness/Other How long have you had these symptoms (acute/chronic)?:Acute Reason for exam?:sob. Hx of COPD History of cancer?:unknown Surgeries, chemotherapy, or radiation?:cholecystectomy, hysterectomy, oophrectomy, left knee replacement Type of Exam?:Initial Additional signs and symptoms?:. Performed By: #### 4 6126 #### LAB [address] [place], [place] [address] Maurice Coello M.D. [id number] CPKon 09-21-2024 CPK 713 U/L High 40-170 [facility] Comment on above: Performed By: #### 4 6124 #### LAB [address] [place], [place] [address] Maurice Coello M.D. [id number] CPK NO MBon 09-21-2024 CK [Catalytic activity/Vol] 713 U/L High 40 - 170 U/L [facility] Comprehensive metabolic 2000 panelOrdered By: Michael Galvez on 09-21-2024 Albumin [Mass/Vol] 4.1 g/dL 3.2 - 5.2 g/dL [facility] ALP [Catalytic activity/Vol] 97 U/L 40 - 150 U/L [facility] ALT [Catalytic activity/Vol] 23 U/L 0-35 U/L [facility] Anion gap [Moles/Vol] 15 mmol/L 10 - 2 0 mmol/L [facility] AST [Catalytic activity/Vol] 47 U/L High 0-35 U/L [facility] Comment on above: Slightly Hemolyzed Bilirubin [Mass/Vol] 0.2 mg/dL 0.0 - 1 .3 mg/dL [facility] Calcium [Mass/Vol] 8.8 mg/dL 8.4 - 10. 2 mg/dL [facility] Chloride [Moles/Vol] 94 mmol/L Low 98 - 10 8 mmol/L [facility] Creatinine [Mass/Vol] 1.72 mg/dL High 0.60 - 1.10 mg/dL [facility] GFR/1.73 sq M.predicted CKD-EPI (S/P/Bld) [Vol rate/Area] 32 Low - PINF [facility] Comment on above: Estimated GFR was ca lculated using the 2020 CKD-EPI creatinine equation. Glucose [Mass/Vol] 102 mg/dL High 65 - 99 mg/dL [facility] HCO3 [Moles/Vol] 30 mmol/L 21 - 32 mmol/L [facility] Potassium [Moles/Vol] 5.8 mmol/L High 3.5 - 5.1 mmol/L [facility] Comment on above: Slightly Hemolyzed Protein [Mass/Vol] 7.3 g/dL 6.0 - 8.0 g/dL [facility] Sodium [Moles/Vol] 133 mmol/L Low 135 - 145 mmol/L [facility] Urea nitrogen [Mass/Vol] 32 mg/dL High 8 - 25 mg/dL [facility] Urea nitrogen/Creatinine [Mass ratio] 18.6 mg/mg 10.0 - 20.0 [facility] has implemented the eGFR calculation approach that does not have a coefficient for race that conforms to the NKF-ASN Task Force Recommendations. [facility] ED Prov Noteon 09-21-2024 ED Prov Note [facility] ED note NAME: Radha Shafer 64 y.o. CSN: [id number] PCP: No, Physician History: Chief Complaint: Shortness of Breath HPI: Patient is a 64-year-old female with multiple medical problems including a history of COPD chronic respiratory failure 4 L nasal cannula home oxygen also states she has a history of CP11 deficiency which causes hypoglycemia. She says she has had a productive cough shortness of breath difficulty breath. No bowel or bladder, no fevers reported. PMHx: Past Medical History: Diagnosis Date Anxiety Arthritis Back pain Bladder problem incontinence Cancer (HCC) thyroid Chronic pain disorder Colitis sigmoid COPD (chronic obstructive pulmonary disease) (HCC) 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HCC) Per pt. - Depression Diabetes (HCC) Diverticulosis Emphysema of lung (HCC) GERD (gastroesophageal reflux disease) Hepatic steatosis History of echocardiogram History of stress test Hypertension Hypothyroidism Kidney disease, chronic, stage I (GFR over 89 ml/min) stage 3 Lung nodule Neuromuscular disorder (HCC) 2016 I have cpt2 difficency Obesity On home oxygen therapy 2L via NC, PRN with walking, activity Scoliosis 03/2022 Sleep apnea noncompliant with CPAP; uses home oxygen Sleep apnea, obstructive PMSx: Past Surgical History: Procedure Laterality Date ALTEMEIER PROCEDURE N/A 03/30/2022 Procedure: ALTEMEIER PROCEDURE; Surgeon: Jada Vargas MD; [place] [facility] [place]; Service: Colorectal CARDIAC CATHETERIZATION N/A 09/26/2022 Procedure: Coronary Angiogram; Surgeon: Tor Long MD; Location: [facility]; Service: Cardiovascular CARDIOVASCULAR STRESS TEST CHOLECYSTECTOMY COLONOSCOPY with biopsies COLONOSCOPY N/A 02/17/2022 Procedure: COLONOSCOPY; Surgeon: Jada Vargas MD; [place] [facility] [place]; Service: Colorectal EGD N/A 08/15/2022 Procedure: ESOPHAGOGASTRODUODENOSC OPY WITH BIOPSY; Surgeon: Tyshawn Santos MD; Location: Endo; Service: Gastroenterology GALLBLADDER HC LEFT HEART CATH N/A 09/26/2022 Procedure: Left Heart Cath; Surgeon: Tor Long MD; Location: [facility]; Service: Cardiovascular HYSTERECTOMY JOINT REPLACEMENT Left knee ORTHOPEDIC SURGERY r wrist surgery, left ankle, right rotator cuff ROTATOR CUFF REPAIR Right SIGMOIDOSCOPY FLEXIBLE N/A 06/23/2022 Procedure: SIGMOIDOSCOPY FLEXIBLE WITH BIOPSY; Surgeon: Tyshawn Santos MD; Location[facility]; Service: Gastroenterology THYROIDECTOMY N/A 07/15/2015 Procedure: TOTAL THYROIDECTOMY; Surgeon: Lopez Alonso MD; Location: [facility] NEUR[facility] OR; Service: US ECHO TRANSTHORACIC FOLLOWUP LIMITED WRIST SURGERY Right FAM. Hx: Family History Problem Relation Age of Onset Heart disease Mother Lupus Mother Stroke Mother Arthritis Mother Heart attack Mother Heart disease Father Heart attack Father Hypertension Father Hypertension Sister Hypertension Brother Prostate cancer Brother Colon cancer Brother Hypertension Brother Prostate cancer Brother Colon cancer Brother Hypertension Brother Prostate cancer Brother Stomach cancer Brother Heart attack Maternal Grandmother Heart attack Maternal Grandfather Heart attack Paternal Grandmother Heart attack Paternal Grandfather Breast cancer Neg Hx SOC. 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 Social Drivers of Health Financial Resource Strain: Medium Risk (06/03/2024) Received from [facility] Overall Financial Resource Strain (CARDIA) Difficulty of Paying Living Expenses: Somewhat hard Food Insecurity: No Food Insecurity (09/02/2024) Hunger Vital Sign Worried About Running Out of Food in the Last Year: Never true Ran Out of Food in the Last Year: Never true Transportation Needs: No Transportation Needs (09/02/2024) PRAPARE - Transportation Lack of Transportation (Medical): No Lack of Transportation (Non-Medical): No Housing Stability: Low Risk (09/02/2024) Housing Stability Vital Sign Unable to Pay for Housing in the Last Year: No Number of Times Moved in the Last Year: 1 Homeless in the Last Year: No MEDs: Previous Medications Medication Sig albuterol (ACCUNEB) 0.63 mg/3 mL nebulizer solution Take 3 mL (0.63 mg total) by nebulization every 6 (six) hours as needed for whe (more content not included)... Normal [facility] EKG 12-leadon 09-21-2024 Atrial Rate 75 BPM [facility] P [place] 74 degrees [facility] P-R Interval 152 ms [facility] Q-T Interval 362 ms [facility] QRS Duration 90 ms [facility] QTC Calculation (Bezet) 404 ms [facility] R [place] 34 degrees [facility] T [place] 65 degrees [facility] Ventricular Rate 75 BPM [facility] Normal sinus rhythm Normal ECG ECG Cart Interpretation see physician note for interpretation. Confirmed by Rasheeda Bedolla ([id number]) on 09/21/2024 8:48:03 PM MUSE [facility] MRSA DNA AMPLIFIED PROBEon 1 11-21-2023 MRSA DNA AMPLIFIED PROBE Negative Normal Not Detected, MRSA NEGATIVE [facility] Comment on above: Performed By: #### [id number] ####[facility] [address] [address] Maurice Coello M.D. [id number] MYCOPLASMA PNEUMONIAE ANTIBO DY, IGMon 09-21-2024 MYCOPLASMA PNEUMONIAE IGM Non-Reactive for Mycoplasma pneumoniae IgM Normal Non-Reactive for Mycoplasma pneumoniae IgM [facility] Comment on above: Order Comment: Inter pretationNon-Reactive: Absence of IgM to Mycoplasma pneumoniae or levels below the limit of the assay. Performed By: #### 4 [id number] ####[facility] [address] [address] Arnel Marie M.D. [id number] No Panel Informationon 09-21 Extra Tube Hold for add-ons. [facility] Comment on above: Auto resulted. [facility] No Panel InformationOrdered By: Michael Galvez on 09-21-2024 Interpretation and review of laboratory results Abnormal [facility] POC VENOUS BLOOD GAS PANEL-P ULM - Lexa 09-21-2024 BASE EXCESS, VENOUS 5.2 High -2.0-2.0 [facility] Comment on above: Performed By: #### L [id number] #### [facility] [address] [address] Maurice Coello M.D. [id number] [id number] Normal [facility] Comment on above: Performed By: #### L [id number] #### [facility] [address] [address] Maurice Coello M.D. [id number] HCO3 (Bld) [Moles/Vol] 33.6 mmol/L High 24.0-28.0 [facility] Comment on above: Performed By: #### L [id number] #### [facility] [address] [address] Maurice Coello M.D. [id number] Hematocrit (Bld) [Volume fraction] 38.6 % Normal 36.0-46.0 [facility] Comment on above: Performed By: #### L [id number] #### [facility] [address] [address] Maurice Coello M.D. [id number] Hemoglobin (Bld) [Mass/Vol] 12.6 g/dL Normal 12.0-16.0 [facility] Comment on above: Performed By: #### L [id number] #### LAB [address] [address] Maurice Coello M.D. [id number] LITER FLOW 4 [facility] Comment on above: Performed By: #### L [id number] #### [facility] [address] [address] Maurice Coello M.D. [id number] Oxygen saturation in Blood 94.8 % High 40.0-70.0 [facility] Comment on above: Performed By: #### L [id number] #### [facility] [address] [address] Maurice Coello M.D. [id number] PCO2 VENOUS 67.4 mm Hg High 41.0-51.0 [facility] Comment on above: Performed By: #### L [id number] #### [facility] [address] [address] Maurice Coello M.D. [id number] PH VENOUS 7.31 Low 7.32-7.42 [facility] Comment on above: Performed By: #### L [id number] #### LAB [address] [address] Maurice Coello M.D. [id number] PO2 VENOUS 76 mm Hg High 25-40 [facility] Comment on above: Performed By: #### L [id number] #### [facility] [address] [address] Maurice Coello M.D. [id number] SPECIMEN SOURCE RADIANCE Radial, right [facility] Comment on above: Performed By: #### L [id number] #### [facility] [address] [address] Maurice Coello M.D. [id number] POC Venous Blood Gas Panel-[facility] 09-21-2024 Base excess Calc (BldV) [Moles/Vol] 5.2 mmol/L High -2.0 - 2.0 [facility] CO2 (BldV) [Partial pressure] 67.4 mm[Hg] High [facility] Hematocrit (BldA) [Volume fraction] 38.6 % 36.0 - 46.0 % [facility] Inhaled oxygen concentration 36 % [facility] Inhaled oxygen flow rate 4 L/min [facility] Interpretation and review of laboratory results Abnormal [facility] Oxygen (BldV) [Partial pressure] 76 mm[Hg] High [facility] Oxygen saturation in Venous blood 94.8 % High 40.0 - 70.0 % [facility] pH (BldV) 7.31 [pH] Low 7.32 - 7.42 [facility] Specimen source Nom (Unsp spec) Radial, right [facility] PROCALCITONINon 09-21-2024 PROCALCITONIN 0.14 ng/ml Normal <0.50 [facility] Comment on above: Order Comment: Injur y/Trauma or Illness?:Illness/Other How long have you had these symptoms (acute/chronic)?:Acute Reason for exam?:sob. Hx of COPD History of cancer?:unknown Surgeries, chemotherapy, or radiation?:cholecystectomy, hysterectomy, oophrectomy, left knee replacement Type of Exam?:Initial Additional signs and symptoms?:. Performed By: #### 4 [id number] #### LAB [address] [address] Maurice Coello M.D. [id number] Procalcitoninon 09-21-2024 Procalcitonin [Mass/Vol] 0.14 ng/mL [facility] - 0.50 ng/ml [facility] Procalcitonin [Mass/Vol]on 11-21-2023 Interpretation and review of laboratory results Normal [facility] Results <0.50 ng/ml represent a low risk of severe sepsis and/or septic shock. [facility] TROPONINon 09-21-2024 BASELINE TROPONIN T NG/L 20 ng/L Off scale high <=14 [facility] Comment on above: Performed By: #### 4 [id number] #### LAB [address] [place], [place] [address] Maurice Coello M.D. [id number] TROPONIN T INTERPRETATION Possible acute cardiac injury. Normal [facility] Comment on above: Performed By: #### 4 [id number] ####[facility] [address], [place] [address] Maurice Coello M.D. [id number] TroponinOrdered By: Carole hughes on 09-21-2024 Troponin T 20 ng/L Critically high NINF - 14 ng/L [facility] Troponin T Interpretation Possible acute cardiac injury. [facility] XR CHEST PA/APon 09-21-2024 XR CHEST PA/AP EXAMINATION: XR CHEST PA/AP HISTORY: ORDERING SYSTEM PROVIDED HISTORY: Shortness of breath, TECHNOLOGIST PROVIDED HISTORY: Illness/Other Reason for exam: sob. Hx of COPD Cancer History: unknown Surgery, RadiationHistory: cholecystectomy, hysterectomy, oophorectomy, left knee replacement Encounter Type: Initial Additional signs and symptoms: . ORDERING SYSTEM PROVIDED DIAGNOSIS CODES: COMPARISON: 09/02/2024 FINDINGS: One-view chest x-ray. No pneumothorax, pleural effusion or focal airspace consolidation. Heart is normal in size. Bony thorax is unremarkable. Multiple calcified granulomas are again seen. IMPRESSION: No acute cardiopulmonary process. Stable chest x-ray. Workstation ID: [id number] Dictated by: PACO DOWNS on Sat Sep 21, 2024 10:47:11 PM EST Transcribed by: PACO DOWNS on Sat Sep 21, 2024 10:47:11 PM EST Finalized by: PACO DOWNS on [facility] Sep 21, 2024 10:47:11 PM EST Normal [facility] Comment on above: Order Comment: Injur y/Trauma or Illness?:Illness/Other How long have you had these symptoms (acute/chronic)?:Acute Reason for exam?:sob. Hx of COPD History of cancer?:unknown Surgeries, chemotherapy, or radiation?:cholecystectomy, hysterectomy, oophrectomy, left knee replacement Type of Exam?:Initial Additional signs and symptoms?:. XR Chest PA and Abdomen APon 09-21-2024 No acute cardiopulmonary process. Stable chest x-ray. Workstation ID: [id number] [facility] EXAMINATION: XR CHEST PA/AP HISTORY: ORDERING SYSTEM PROVIDED HISTORY: Shortness of breath, TECHNOLOGIST PROVIDED HISTORY: Illness/Other Reason for exam: sob. Hx of COPD Cancer History: unknown Surgery, RadiationHistory: cholecystectomy, hysterectomy, oophorectomy, left knee replacement Encounter Type: Initial Additional signs and symptoms: . ORDERING SYSTEM PROVIDED DIAGNOSIS CODES: COMPARISON: 09/02/2024 FINDINGS: One-view chest x-ray. No pneumothorax, pleural effusion or focal airspace consolidation. Heart is normal in size. Bony thorax is unremarkable. Multiple calcified granulomas are again seen. Paco Gamino MD - 09/21/2024 EXAMINATION: XR CHEST PA/AP HISTORY: ORDERING SYSTEM PROVIDED HISTORY: Shortness of breath, TECHNOLOGIST PROVIDED HISTORY: Illness/Other Reason for exam: sob. Hx of COPD Cancer History: unknown Surgery, RadiationHistory: cholecystectomy, hysterectomy, oophorectomy, left knee replacement Encounter Type: Initial Additional signs and symptoms: . ORDERING SYSTEM PROVIDED DIAGNOSIS CODES: COMPARISON: 09/02/2024 FINDINGS: One-view chest x-ray. No pneumothorax, pleural effusion or focal airspace consolidation. Heart is normal in size. Bony thorax is unremarkable. Multiple calcified granulomas are again seen. IMPRESSION: No acute cardiopulmonary process. Stable chest x-ray. Workstation ID: [id number] [facility] Radiology Study observation (narrative) [facility] XR Chest PA and Abdomen APOr dered By: Paco Downs on 09-21-2024 [facility] Work Phone: BASIC METABOLIC PANELon 08-07 Anion gap [Moles/Vol] 15 mmol/L Normal 10-20 [facility] [place] [facility] Comment on above: Order Comment: Resul ts of PCR testing for stool pathogens must be taken into clinical context when making treatment decisions. Most gastrointestinal infections due to common bacterial and viral causes are self-limited in nature and do not require antimicrobial therapy. The use of antimicrobial therapy must be carefully weighed against unintended and potentially harmful consequences. The role of antimicrobial therapy depends on the implicated pathogen. In general, antimicrobial agents are only used to treat parasitic infections as well as select bacterial infections. Performed By: #### L [id number] #### [facility] [address] [place], [place] [address] Maurice Coello M.D. [id number] Calcium [Mass/Vol] 9.1 mg/dL Normal 8.4-10.2 [facility] Comment on above: Order Comment: Resul ts of PCR testing for stool pathogens must be taken into clinical context when making treatment decisions. Most gastrointestinal infections due to common bacterial and viral causes are self-limited in nature and do not require antimicrobial therapy. The use of antimicrobial therapy must be carefully weighed against unintended and potentially harmful consequences. The role of antimicrobial therapy depends on the implicated pathogen. In general, antimicrobial agents are only used to treat parasitic infections as well as select bacterial infections. Performed By: #### L [id number] #### [facility] [address] [place], [place] [address] Maurice Coello M.D. [id number] Chloride [Moles/Vol] 98 mmol/L Normal 98-108 [facility] Comment on above: Order Comment: Resul ts of PCR testing for stool pathogens must be taken into clinical context when making treatment decisions. Most gastrointestinal infections due to common bacterial and viral causes are self-limited in nature and do not require antimicrobial therapy. The use of antimicrobial therapy must be carefully weighed against unintended and potentially harmful consequences. The role of antimicrobial therapy depends on the implicated pathogen. In general, antimicrobial agents are only used to treat parasitic infections as well as select bacterial infections. Performed By: #### L [id number] #### [facility] [address] [address] Maurice Coello M.D. [id number] Creatinine [Mass/Vol] 1.61 mg/dL High 0.60-1.10 [facility] [place] [facility] Comment on above: Order Comment: Resul ts of PCR testing for stool pathogens must be taken into clinical context when making treatment decisions. Most gastrointestinal infections due to common bacterial and viral causes are self-limited in nature and do not require antimicrobial therapy. The use of antimicrobial therapy must be carefully weighed against unintended and potentially harmful consequences. The role of antimicrobial therapy depends on the implicated pathogen. In general, antimicrobial agents are only used to treat parasitic infections as well as select bacterial infections. Performed By: #### L [id number] #### [facility] [address] [id number] Maurice Coello M.D. [id number] EGFR 35 mL/min/1.73 m2 Low >=60 [facility] Comment on above: Order Comment: Resul ts of PCR testing for stool pathogens must be taken into clinical context when making treatment decisions. Most gastrointestinal infections due to common bacterial and viral causes are self-limited in nature and do not require antimicrobial therapy. The use of antimicrobial therapy must be carefully weighed against unintended and potentially harmful consequences. The role of antimicrobial therapy depends on the implicated pathogen. In general, antimicrobial agents are only used to treat parasitic infections as well as select bacterial infections. Result Comment: Ericka mated GFR was calculated using the 2020 CKD-EPI creatinine equation. Performed By: #### L [id number] #### [facility] [address] [address] Maurice Coello M.D. [id number] Glucose [Mass/Vol] 120 mg/dL High 65-99 [facility] Comment on above: Order Comment: Resul ts of PCR testing for stool pathogens must be taken into clinical context when making treatment decisions. Most gastrointestinal infections due to common bacterial and viral causes are self-limited in nature and do not require antimicrobial therapy. The use of antimicrobial therapy must be carefully weighed against unintended and potentially harmful consequences. The role of antimicrobial therapy depends on the implicated pathogen. In general, antimicrobial agents are only used to treat parasitic infections as well as select bacterial infections. Performed By: #### L [id number] #### [facility] [address] [address] Maurice Coello M.D. [id number] HCO3 (Bld) [Moles/Vol] 25 mmol/L Normal 21-32 [facility] Comment on above: Order Comment: Resul ts of PCR testing for stool pathogens must be taken into clinical context when making treatment decisions. Most gastrointestinal infections due to common bacterial and viral causes are self-limited in nature and do not require antimicrobial therapy. The use of antimicrobial therapy must be carefully weighed against unintended and potentially harmful consequences. The role of antimicrobial therapy depends on the implicated pathogen. In general, antimicrobial agents are only used to treat parasitic infections as well as select bacterial infections. Performed By: #### L [id number] #### [facility] [address] [address] Maurice Coello M.D. [id number] Potassium [Moles/Vol] 5.7 mmol/L High 3.5-5.1 [facility] [place] [facility] Comment on above: Order Comment: Resul ts of PCR testing for stool pathogens must be taken into clinical context when making treatment decisions. Most gastrointestinal infections due to common bacterial and viral causes are self-limited in nature and do not require antimicrobial therapy. The use of antimicrobial therapy must be carefully weighed against unintended and potentially harmful consequences. The role of antimicrobial therapy depends on the implicated pathogen. In general, antimicrobial agents are only used to treat parasitic infections as well as select bacterial infections. Performed By: #### L [id number] #### [facility] [address] [address] Maurice Coello M.D. [id number] Sodium [Moles/Vol] 132 mmol/L Low 135-145 [facility] Comment on above: Order Comment: Resul ts of PCR testing for stool pathogens must be taken into clinical context when making treatment decisions. Most gastrointestinal infections due to common bacterial and viral causes are self-limited in nature and do not require antimicrobial therapy. The use of antimicrobial therapy must be carefully weighed against unintended and potentially harmful consequences. The role of antimicrobial therapy depends on the implicated pathogen. In general, antimicrobial agents are only used to treat parasitic infections as well as select bacterial infections. Performed By: #### L [id number] #### [facility] [address] [address] Maurice Coello M.D. [id number] Urea nitrogen [Mass/Vol] 35 mg/dL High 8-25 [facility] Comment on above: Order Comment: Resul ts of PCR testing for stool pathogens must be taken into clinical context when making treatment decisions. Most gastrointestinal infections due to common bacterial and viral causes are self-limited in nature and do not require antimicrobial therapy. The use of antimicrobial therapy must be carefully weighed against unintended and potentially harmful consequences. The role of antimicrobial therapy depends on the implicated pathogen. In general, antimicrobial agents are only used to treat parasitic infections as well as select bacterial infections. Performed By: #### L [id number] #### [facility] [address] [address] Maurice Coello M.D. [id number] Urea nitrogen/Creatinine [Mass ratio] 21.7 mg/mg High 10.0-20.0 [facility] Comment on above: Order Comment: Resul ts of PCR testing for stool pathogens must be taken into clinical context when making treatment decisions. Most gastrointestinal infections due to common bacterial and viral causes are self-limited in nature and do not require antimicrobial therapy. The use of antimicrobial therapy must be carefully weighed against unintended and potentially harmful consequences. The role of antimicrobial therapy depends on the implicated pathogen. In general, antimicrobial agents are only used to treat parasitic infections as well as select bacterial infections. Performed By: #### L [id number] #### [facility] [address] [place] [address] Maurice Coello M.D. [id number] Basic metabolic 2000 panelon 09-03-2024 Anion gap [Moles/Vol] 15 mmol/L 10 - 2 0 mmol/L [facility] Calcium [Mass/Vol] 9.1 mg/dL 8.4 - 10. 2 mg/dL [facility] Chloride [Moles/Vol] 98 mmol/L 98 - 10 8 mmol/L [facility] Creatinine [Mass/Vol] 1.61 mg/dL High 0.60 - 1.10 mg/dL [facility] GFR/1.73 sq M.predicted CKD-EPI (S/P/Bld) [Vol rate/Area] 35 Low - PINF [facility] Comment on above: Estimated GFR was ca lculated using the 2020 CKD-EPI creatinine equation. Glucose [Mass/Vol] 120 mg/dL High 65 - 99 mg/dL [facility] HCO3 [Moles/Vol] 25 mmol/L 21 - 32 mmol/L [facility] Interpretation and review of laboratory results Abnormal [facility] Potassium [Moles/Vol] 5.7 mmol/L High 3.5 - 5.1 mmol/L [facility] Sodium [Moles/Vol] 132 mmol/L Low 135 - 145 mmol/L [facility] Urea nitrogen [Mass/Vol] 35 mg/dL High 8 - 25 mg/dL [facility] Urea nitrogen/Creatinine [Mass ratio] 21.7 mg/mg High 10.0 - 20.0 [facility] has implemented the eGFR calculation approach that does not have a coefficient for race that conforms to the NKF-ASN Task Force Recommendations. [facility] CBC Auto Differentialon 08-07 Basophils (Bld) [#/Vol] 0.02 10*3/uL [facility] Basophils/100 WBC (Bld) 0.2 % [facility] Eosinophils (Bld) [#/Vol] 0 10*3/uL [facility] Eosinophils/100 WBC (Bld) 0 % [facility] Erythrocyte distribution width (RBC) [Entitic vol] 14.4 % 11.6 - 14.8 % [facility] [facility] Hematocrit (Bld) [Volume fraction] 35.3 % Low 36.0 - 46.0 % [facility] Hemoglobin (Bld) [Mass/Vol] 10.6 g/dL Low 12.0 - 16.0 g/dL [facility] Immature granulocytes (Bld) [#/Vol] 0.06 10*3/uL [facility] Immature granulocytes/100 WBC (Bld) 0.7 % [facility] Comment on above: The IG parameter is the percentage of metamyelocytes, myelocytes and promyelocytes. An immature granulocyte count (IG) of 1% or more suggests the possibility of infection, an IG count of 3% is very likely related to an infection. Interpretation and review of laboratory results Abnormal [facility] Lymphocytes (Bld) [#/Vol] 0.6 10*3/uL Low [facility] Lymphocytes/100 WBC (Bld) 7.4 % [facility] MCH (RBC) [Entitic mass] 25.9 pg Low 26.0 - 34.0 pg [facility] MCHC (RBC) [Mass/Vol] 30 g/dL Low 31.0 - 37.0 g/dL [facility] MCV (RBC) [Entitic vol] 86.1 fL 80.0 - 100.0 fL [facility] Monocytes (Bld) [#/Vol] 0.22 10*3/uL Low [facility] Monocytes/100 WBC (Bld) 2.7 % [facility] Neutrophils (Bld) [#/Vol] 7.26 10*3/uL High [facility] Neutrophils/100 WBC (Bld) 89 % [facility] Nucleated RBC (Bld) [#/Vol] 0 10*3/uL [facility] Nucleated RBC/100 WBC (Bld) [Ratio] 0 % [facility] Platelet mean volume (Bld) [Entitic vol] 10.5 fL 9.4 - 12.4 fL [facility] Platelets (Bld) [#/Vol] 229 10*3/uL [facility] RBC (Bld) [#/Vol] 4.1 10*6/uL [facility] alth WBC (Bld) [#/Vol] 8.16 10*3/uL [facility] CBC WITH AUTO DIFFERENTIALon 09-03-2024 AUTO NRBC 0.0 % Normal [facility] Comment on above: Performed By: #### L [id number] #### LAB [address] [address] Maurice Coello M.D. [id number] AUTO NRBC ABS COUNT 0.00 K/mcL Normal 0.00-0.00 [facility] Comment on above: Performed By: #### L [id number] #### LAB [address] [address] Maurice Coello M.D. [id number] BASOPHILS ABSOLUTE COUNT 0.02 K/mcL Normal 0.00-0.30 [facility] Comment on above: Performed By: #### L [id number] #### LAB [address] [address] Maurice Coello M.D. [id number] Basophils/100 WBC (Bld) 0.2 % Normal [facility] Comment on above: Performed By: #### L [id number] #### LAB [address] [address] Maurice Coello M.D. [id number] Eosinophils (Bld) [#/Vol] 0.00 10*3/uL Normal 0.00-0.50 [facility] Comment on above: Performed By: #### L [id number] #### LAB [address] [place] [address] Maurice Coello M.D. [id number] Eosinophils/100 WBC (Bld) 0.0 % Normal [facility] Comment on above: Performed By: #### L [id number] #### LAB [address] [address] Maurice Coello M.D. [id number] Erythrocyte distribution width (RBC) [Ratio] 14.4 % Normal 11.6-14.8 [facility] Comment on above: Performed By: #### L [id number] #### LAB [address] [place] [address] Maurice Coello M.D. [id number] Hematocrit (Bld) [Volume fraction] 35.3 % Low 36.0-46.0 [facility] Comment on above: Performed By: #### L [id number] #### LAB [address] [address] Maurice Coello M.D. [id number] Hemoglobin (Bld) [Mass/Vol] 10.6 g/dL Low 12.0-16.0 [facility] Comment on above: Performed By: #### L [id number] #### LAB [address] [address] Maurice Coello M.D. [id number] IG ABSOLUTE 0.06 K/mcL Normal 0.00-0.30 [facility] Comment on above: Performed By: #### L [id number] #### LAB [address] [address] Maurice Coello M.D. [id number] IG PERCENT 0.70 % [facility] Comment on above: Result Comment: The IG parameter is the percentage of metamyelocytes, myelocytes and promyelocytes. An immature granulocyte count (IG) of 1% or more suggests the possibility of infection, an IG count of 3% is very likely related to an infection. Performed By: #### L [id number] #### LAB [address] [address] Maurice Coello M.D. [id number] Lymphocytes (Bld) [#/Vol] 0.60 10*3/uL Low 0.90-4.00 [facility] Comment on above: Performed By: #### L [id number] #### LAB [address] [address] Maurice Coello M.D. [id number] Lymphocytes/100 WBC (Bld) 7.4 % [facility] Comment on above: Performed By: #### L [id number] #### LAB [address] [address] Maurice Coello M.D. [id number] MCH (RBC) [Entitic mass] 25.9 pg Low 26.0-34.0 [facility] Comment on above: Performed By: #### L [id number] #### LAB [address] [address] Maurice Coello M.D. [id number] MCV (RBC) [Entitic vol] 86.1 fL Normal 80.0-100.0 [facility] Comment on above: Performed By: #### L [id number] #### LAB [address] [address] Maurice Coello M.D. [id number] MEAN CORPUSCULAR HEMOGLOBIN CONC 30.0 g/dL Low 31.0-37.0 [facility] Comment on above: Performed By: #### L [id number] #### LAB [address] [address] Maurice Coello M.D. [id number] Monocytes (Bld) [#/Vol] 0.22 10*3/uL Low 0.30-0.90 [facility] Comment on above: Performed By: #### L [id number] #### LAB [address] [address] Maurice Coello M.D. [id number] Monocytes/100 WBC (Bld) 2.7 % Normal [facility] Comment on above: Performed By: #### L [id number] #### LAB [address] [address] Maurice Coello M.D. [id number] NEUTROPHILS ABSOLUTE COUNT 7.26 K/mcL High 1.70-7.00 [facility] Comment on above: Performed By: #### L [id number] #### LAB [address] [address] Maurice Coello M.D. [id number] Neutrophils/100 WBC (Bld) 89.0 % Normal [facility] Comment on above: Performed By: #### L [id number] #### LAB [address] [place] [address] Maurice Coello M.D. [id number] Platelet mean volume (Bld) [Entitic vol] 10.5 fL Normal 9.4-12.4 [facility] Comment on above: Performed By: #### L [id number] ####[facility] LAB [address] [place], [place] [address] Maurice Coello M.D. [id number] Platelets (Bld) [#/Vol] 229 10*3/uL Normal 150-400 [facility] Comment on above: Performed By: #### L [id number] ####[facility] LAB [address] [place], [place] [address] Maurice Coello M.D. [id number] RBC (Bld) [#/Vol] 4.10 10*6/uL Normal 4.00-5.20 [facility] Comment on above: Performed By: #### L [id number] ####[facility] LAB [address] [id number] Maurice Coello M.D. [id number] WBC (Bld) [#/Vol] 8.16 10*3/uL Normal 4.50-11.00 [facility] Comment on above: Performed By: #### L [id number] ####[facility] LAB [address] [address] Maurice Coello M.D. [id number] EKG 12-leadon 09-03-2024 Atrial Rate 75 BPM [facility] P [place] 60 degrees [facility] P-R Interval 166 ms [facility] Q-T Interval 378 ms [facility] QRS Duration 104 ms [facility] QTC Calculation (Bezet) 422 ms [facility] R [place] 28 degrees [facility] T [place] 46 degrees [facility] Ventricular Rate 75 BPM [facility] th Normal sinus rhythm Normal ECG ECG Cart Interpretation see physician note for interpretation. Confirmed by Rasheeda Bedolla ([id number]) on 09/03/2024 3:10:10 PM [facility] BASIC METABOLIC PANELon 08-07 Anion gap [Moles/Vol] 17 mmol/L Normal 10- [facility] [place] [facility] Comment on above: Order Comment: Resul ts of PCR testing for stool pathogens must be taken into clinical context when making treatment decisions. Most gastrointestinal infections due to common bacterial and viral causes are self-limited in nature and do not require antimicrobial therapy. The use of antimicrobial therapy must be carefully weighed against unintended and potentially harmful consequences. The role of antimicrobial therapy depends on the implicated pathogen. In general, antimicrobial agents are only used to treat parasitic infections as well as select bacterial infections. Performed By: #### L [id number] #### [facility] LAB [address] [place], [place] [address] Maurice Coello M.D. [id number] Calcium [Mass/Vol] 9.1 mg/dL Normal 8.4-10.2 [facility] Comment on above: Order Comment: Resul ts of PCR testing for stool pathogens must be taken into clinical context when making treatment decisions. Most gastrointestinal infections due to common bacterial and viral causes are self-limited in nature and do not require antimicrobial therapy. The use of antimicrobial therapy must be carefully weighed against unintended and potentially harmful consequences. The role of antimicrobial therapy depends on the implicated pathogen. In general, antimicrobial agents are only used to treat parasitic infections as well as select bacterial infections. Performed By: #### L [id number] #### [facility] LAB [address] [place], [place] [address] Maurice Coello M.D. [id number] Chloride [Moles/Vol] 99 mmol/L Normal 98-108 [facility] Comment on above: Order Comment: Resul ts of PCR testing for stool pathogens must be taken into clinical context when making treatment decisions. Most gastrointestinal infections due to common bacterial and viral causes are self-limited in nature and do not require antimicrobial therapy. The use of antimicrobial therapy must be carefully weighed against unintended and potentially harmful consequences. The role of antimicrobial therapy depends on the implicated pathogen. In general, antimicrobial agents are only used to treat parasitic infections as well as select bacterial infections. Performed By: #### L [id number] #### [facility] LAB [address] [place], [place] [address] Maurice Coello M.D. [id number] Creatinine [Mass/Vol] 2.09 mg/dL High 0.60-1.10 [facility] [place] [facility] Comment on above: Order Comment: Resul ts of PCR testing for stool pathogens must be taken into clinical context when making treatment decisions. Most gastrointestinal infections due to common bacterial and viral causes are self-limited in nature and do not require antimicrobial therapy. The use of antimicrobial therapy must be carefully weighed against unintended and potentially harmful consequences. The role of antimicrobial therapy depends on the implicated pathogen. In general, antimicrobial agents are only used to treat parasitic infections as well as select bacterial infections. Performed By: #### L [id number] #### [facility] LAB [address] [place], [place] [address] Maurice Coello M.D. [id number] EGFR 26 mL/min/1.73 m2 Low >=60 [facility] Comment on above: Order Comment: Resul ts of PCR testing for stool pathogens must be taken into clinical context when making treatment decisions. Most gastrointestinal infections due to common bacterial and viral causes are self-limited in nature and do not require antimicrobial therapy. The use of antimicrobial therapy must be carefully weighed against unintended and potentially harmful consequences. The role of antimicrobial therapy depends on the implicated pathogen. In general, antimicrobial agents are only used to treat parasitic infections as well as select bacterial infections. Result Comment: Ericka mated GFR was calculated using the 2020 CKD-EPI creatinine equation. Performed By: #### L [id number] #### [facility] LAB [address] [place], [place] [address] Maurice Coello M.D. [id number] Glucose [Mass/Vol] 112 mg/dL High 65-99 [facility] Comment on above: Order Comment: Resul ts of PCR testing for stool pathogens must be taken into clinical context when making treatment decisions. Most gastrointestinal infections due to common bacterial and viral causes are self-limited in nature and do not require antimicrobial therapy. The use of antimicrobial therapy must be carefully weighed against unintended and potentially harmful consequences. The role of antimicrobial therapy depends on the implicated pathogen. In general, antimicrobial agents are only used to treat parasitic infections as well as select bacterial infections. Performed By: #### L [id number] #### [facility] LAB [address] [place], [place] [address] Maurice Coello M.D. [id number] HCO3 (Bld) [Moles/Vol] 27 mmol/L Normal 21-32 [facility] Comment on above: Order Comment: Resul ts of PCR testing for stool pathogens must be taken into clinical context when making treatment decisions. Most gastrointestinal infections due to common bacterial and viral causes are self-limited in nature and do not require antimicrobial therapy. The use of antimicrobial therapy must be carefully weighed against unintended and potentially harmful consequences. The role of antimicrobial therapy depends on the implicated pathogen. In general, antimicrobial agents are only used to treat parasitic infections as well as select bacterial infections. Performed By: #### L [id number] #### [facility] LAB [address] [address] Maurice Coello M.D. [id number] Potassium [Moles/Vol] 5.2 mmol/L High 3.5-5.1 [facility] [place] [facility] Comment on above: Order Comment: Resul ts of PCR testing for stool pathogens must be taken into clinical context when making treatment decisions. Most gastrointestinal infections due to common bacterial and viral causes are self-limited in nature and do not require antimicrobial therapy. The use of antimicrobial therapy must be carefully weighed against unintended and potentially harmful consequences. The role of antimicrobial therapy depends on the implicated pathogen. In general, antimicrobial agents are only used to treat parasitic infections as well as select bacterial infections. Performed By: #### L [id number] #### [facility] LAB [address] [address] Maurice Coello M.D. [id number] Sodium [Moles/Vol] 138 mmol/L Normal 135-145 [facility] Comment on above: Order Comment: Resul ts of PCR testing for stool pathogens must be taken into clinical context when making treatment decisions. Most gastrointestinal infections due to common bacterial and viral causes are self-limited in nature and do not require antimicrobial therapy. The use of antimicrobial therapy must be carefully weighed against unintended and potentially harmful consequences. The role of antimicrobial therapy depends on the implicated pathogen. In general, antimicrobial agents are only used to treat parasitic infections as well as select bacterial infections. Performed By: #### L [id number] #### [facility] LAB [address] [address] Maurice Coello M.D. [id number] Urea nitrogen [Mass/Vol] 37 mg/dL High 8-25 [facility] Comment on above: Order Comment: Resul ts of PCR testing for stool pathogens must be taken into clinical context when making treatment decisions. Most gastrointestinal infections due to common bacterial and viral causes are self-limited in nature and do not require antimicrobial therapy. The use of antimicrobial therapy must be carefully weighed against unintended and potentially harmful consequences. The role of antimicrobial therapy depends on the implicated pathogen. In general, antimicrobial agents are only used to treat parasitic infections as well as select bacterial infections. Performed By: #### L [id number] #### LAB [address] [place], [place] [address] Maurice Coello M.D. [id number] Urea nitrogen/Creatinine [Mass ratio] 17.7 mg/mg Normal 10.0-20.0 [facility] Comment on above: Order Comment: Resul ts of PCR testing for stool pathogens must be taken into clinical context when making treatment decisions. Most gastrointestinal infections due to common bacterial and viral causes are self-limited in nature and do not require antimicrobial therapy. The use of antimicrobial therapy must be carefully weighed against unintended and potentially harmful consequences. The role of antimicrobial therapy depends on the implicated pathogen. In general, antimicrobial agents are only used to treat parasitic infections as well as select bacterial infections. Performed By: #### L [id number] #### [facility] LAB [address] [place], [place] [address] Maurice Coello M.D. [id number] BLOOD CULTURE AEROBIC/ANAERO [facility] 09-02-2024 BLOOD CULTURE AEROBIC/ANAEROBIC BLOOD CULTURE No Growth after 5 days Normal [facility] Comment on above: Performed By: #### [id number] #### [facility] LAB [address] [place], [place] [address] Maurice Coello M.D. [id number] Performed By: #### 4 [id number] ####[facility] LAB [address] [place], [place] [address] Maurice Coello M.D. [id number] Basic metabolic 2000 panelon 09-02-2024 Anion gap [Moles/Vol] 17 mmol/L 10 - 2 0 mmol/L [facility] Calcium [Mass/Vol] 9.1 mg/dL 8.4 - 10. 2 mg/dL [facility] Chloride [Moles/Vol] 99 mmol/L 98 - 10 8 mmol/L [facility] Creatinine [Mass/Vol] 2.09 mg/dL High 0.60 - 1.10 mg/dL [facility] GFR/1.73 sq M.predicted CKD-EPI (S/P/Bld) [Vol rate/Area] 26 Low - PINF [facility] Comment on above: Estimated GFR was ca lculated using the 2020 CKD-EPI creatinine equation. Glucose [Mass/Vol] 112 mg/dL High 65 - 99 mg/dL [facility] HCO3 [Moles/Vol] 27 mmol/L 21 - 32 mmol/L [facility] Interpretation and review of laboratory results Abnormal [facility] Potassium [Moles/Vol] 5.2 mmol/L High 3.5 - 5.1 mmol/L [facility] Sodium [Moles/Vol] 138 mmol/L 135 - 145 mmol/L [facility] Urea nitrogen [Mass/Vol] 37 mg/dL High 8 - 25 mg/dL [facility] Urea nitrogen/Creatinine [Mass ratio] 17.7 mg/mg 10.0 - 20.0 [facility] has implemented the eGFR calculation approach that does not have a coefficient for race that conforms to the NKF-ASN Task Force Recommendations. [facility] CBC Auto Differentialon 08-07 Basophils (Bld) [#/Vol] 0.07 10*3/uL [facility] Basophils/100 WBC (Bld) 1 % [facility] E[facility] (Bld) [#/Vol] 0.12 10*3/uL [facility] Eosinophils/100 WBC (Bld) 1.7 % [facility] Erythrocyte distribution width (RBC) [Entitic vol] 14.5 % 11.6 - 14.8 % [facility] Hematocrit (Bld) [Volume fraction] 40.6 % 36.0 - 46.0 % [facility] Hemoglobin (Bld) [Mass/Vol] 11.9 g/dL Low 12.0 - 16.0 g/dL [facility] Immature granulocytes (Bld) [#/Vol] 0.01 10*3/uL [facility] Immature granulocytes/100 WBC (Bld) 0.1 % [facility] Comment on above: The IG parameter is the percentage of metamyelocytes, myelocytes and promyelocytes. An immature granulocyte count (IG) of 1% or more suggests the possibility of infection, an IG count of 3% is very likely related to an infection. Interpretation and review of laboratory results Abnormal [facility] Lymphocytes (Bld) [#/Vol] 0.98 10*3/uL [facility] Lymphocytes/100 WBC (Bld) 14 % [facility] MCH (RBC) [Entitic mass] 25.8 pg Low 26.0 - 34.0 pg [facility] MCHC (RBC) [Mass/Vol] 29.3 g/dL Low 31.0 - 37.0 g/dL [facility] MCV (RBC) [Entitic vol] 88.1 fL 80.0 - 100.0 fL [facility] Monocytes (Bld) [#/Vol] 0.41 10*3/uL [facility] Monocytes/100 WBC (Bld) 5.8 % [facility] Neutrophils (Bld) [#/Vol] 5.43 10*3/uL [facility] Neutrophils/100 WBC (Bld) 77.4 % [facility] Nucleated RBC (Bld) [#/Vol] 0 10*3/uL [facility] Nucleated RBC/100 WBC (Bld) [Ratio] 0 % [facility] Platelet mean volume (Bld) [Entitic vol] 10.6 fL 9.4 - 12.4 fL [facility] Platelets (Bld) [#/Vol] 298 10*3/uL [facility] RBC (Bld) [#/Vol] 4.61 10*6/uL [facility] (Bld) [#/Vol] 7.02 10*3/uL [facility] CBC WITH AUTO DIFFERENTIALon 09-02-2024 AUTO NRBC 0.0 % Normal [facility] Comment on above: Performed By: #### L [id number] #### LAB [address] [address] Maurice Coello M.D. [id number] AUTO NRBC ABS COUNT 0.00 K/mcL Normal 0.00-0.00 [facility] Comment on above: Performed By: #### L [id number] #### LAB [address] [address] Maurice Coello M.D. [id number] BASOPHILS ABSOLUTE COUNT 0.07 K/mcL Normal 0.00-0.30 [facility] Comment on above: Performed By: #### L [id number] #### LAB [address] [address] Maurice Coello M.D. [id number] Basophils/100 WBC (Bld) 1.0 % Normal [facility] Comment on above: Performed By: #### L [id number] #### LAB [address] [address] Maurice Coello M.D. [id number] Eosinophils (Bld) [#/Vol] 0.12 10*3/uL Normal 0.00-0.50 [facility] Comment on above: Performed By: #### L [id number] #### LAB [address] [address] Maurice Coello M.D. [id number] Eosinophils/100 WBC (Bld) 1.7 % Normal [facility] Comment on above: Performed By: #### L [id number] #### LAB [address] [address] Maurice Coello M.D. [id number] Erythrocyte distribution width (RBC) [Ratio] 14.5 % Normal 11.6-14.8 [facility] Comment on above: Performed By: #### L [id number] #### LAB [address] [address] Maurice Coello M.D. [id number] Hematocrit (Bld) [Volume fraction] 40.6 % Normal 36.0-46.0 [facility] Comment on above: Performed By: #### L [id number] #### LAB [address] [address] Maurice Coello M.D. [id number] Hemoglobin (Bld) [Mass/Vol] 11.9 g/dL Low 12.0-16.0 [facility] Comment on above: Performed By: #### L [id number] #### LAB [address] [address] Maurice Coello M.D. [id number] IG ABSOLUTE 0.01 K/mcL Normal 0.00-0.30 [facility] Comment on above: Performed By: #### L [id number] #### LAB [address] [place] [address] Maurice Coello M.D. [id number] IG PERCENT 0.10 % Normal [facility] Comment on above: Result Comment: The IG parameter is the percentage of metamyelocytes, myelocytes and promyelocytes. An immature granulocyte count (IG) of 1% or more suggests the possibility of infection, an IG count of 3% is very likely related to an infection. Performed By: #### L [id number] #### LAB [address] [place] [address] Maurice Coello M.D. [id number] Lymphocytes (Bld) [#/Vol] 0.98 10*3/uL Normal 0.90-4.00 [facility] Comment on above: Performed By: #### L [id number] #### LAB [address] [address] Maurice Coello M.D. [id number] Lymphocytes/100 WBC (Bld) 14.0 % Normal [facility] Comment on above: Performed By: #### L [id number] #### LAB [address] [place] [address] Maurice Coello M.D. [id number] MCH (RBC) [Entitic mass] 25.8 pg Low 26.0-34.0 [facility] Comment on above: Performed By: #### L [id number] #### LAB [address] [place] [address] Maurice Coello M.D. [id number] MCV (RBC) [Entitic vol] 88.1 fL Normal 80.0-100.0 [facility] Comment on above: Performed By: #### L [id number] #### LAB [address] [place] [address] Maurice Coello M.D. [id number] MEAN CORPUSCULAR HEMOGLOBIN CONC 29.3 g/dL Low 31.0-37.0 [facility] Comment on above: Performed By: #### L [id number] #### LAB [address] [place] [address] Maurice Coello M.D. [id number] Monocytes (Bld) [#/Vol] 0.41 10*3/uL Normal 0.30-0.90 [facility] Comment on above: Performed By: #### L [id number] #### LAB [address] [place] [address] Maurice Coello M.D. [id number] Monocytes/100 WBC (Bld) 5.8 % Normal [facility] Comment on above: Performed By: #### L [id number] #### LAB [address] [address] Maurice Coello M.D. [id number] NEUTROPHILS ABSOLUTE COUNT 5.43 K/mcL Normal 1.70-7.00 [facility] Comment on above: Performed By: #### L [id number] ####[facility] [address] [address] Maurice Coello M.D. [id number] Neutrophils/100 WBC (Bld) 77.4 % Normal [facility] Comment on above: Performed By: #### L [id number] #### LAB [address] [address] Maurice Coello M.D. [id number] Platelet mean volume (Bld) [Entitic vol] 10.6 fL Normal 9.4-12.4 [facility] Comment on above: Performed By: #### L [id number] #### LAB [address] [address] Maurice Coello M.D. [id number] Platelets (Bld) [#/Vol] 298 10*3/uL Normal 150-400 [facility] Comment on above: Performed By: #### L [id number] #### LAB [address] [address] Maurice Coello M.D. [id number] RBC (Bld) [#/Vol] 4.61 10*6/uL Normal 4.00-5.20 [facility] Comment on above: Performed By: #### L [id number] ####[facility] [address] [address] Maurice Coello M.D. [id number] WBC (Bld) [#/Vol] 7.02 10*3/uL Normal 4.50-11.00 [facility] Comment on above: Performed By: #### L [id number] #### LAB [address] [place], [place] [address] Maurice Coello M.D. [id number] CK [Catalytic activity/Vol]o n 09-02-2024 Interpretation and review of laboratory results Abnormal [facility] COVID-19/INFLUENZA A,B MOLEC ULARon 09-02-2024 SARS-CoV-2 (COVID-19) Ab IA Ql SARS-COV-2 (SOFIE) Not Detected INFLUENZA A (SOFIE) Not Detected INFLUENZA B (SOFIE) Not Detected Normal Not Detected [facility] Comment on above: Performed By: #### L [id number] #### [facility] [address] [address] Maurice Coello M.D. [id number] CPKon 09-02-2024 CPK 659 U/L High 40-170 [facility] Comment on above: Performed By: #### 4 [id number] ####[facility] [address] [address] Maurice Coello M.D. [id number] CPK NO MBon 09-02-2024 CK [Catalytic activity/Vol] 659 U/L High 40 - 170 U/L [facility] ED Prov Noteon 09-02-2024 ED Prov Note ED PROVIDER NOTE [facility] NAME: Radha Shafer AGE: 64 y.o. : 1960 VISIT DATE: 09/02/2024 CSN: [id number] PCP: No, Physician Chief Complaint Patient presents with Shortness of Breath 64-year-old female history of COPD on home oxygen, CPT 2 deficiency history of myopathy, rhabdomyolysis presents emergency department worsening shortness of breath, cough and wheezing for the past few days. On arrival she was found to have pulse ox level of 77% on 2 L of oxygen via nasal cannula. Patient also [facility]. Did not have a chance to have an x-ray. And she is requesting to see Dr. Jules. Past Medical History: Diagnosis Date Anxiety Arthritis Back pain Bladder problem incontinence Cancer (HCC) thyroid Chronic pain disorder Colitis sigmoid COPD (chronic obstructive pulmonary disease) (HCC) 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HCC) Per pt. - Depression Diabetes (HCC) Diverticulosis Emphysema of lung (HCC) GERD (gastroesophageal reflux disease) Hepatic steatosis History of echocardiogram History of stress test Hypertension Hypothyroidism Kidney disease, chronic, stage I (GFR over 89 ml/min) stage 3 Lung nodule Neuromuscular disorder (HCC) 2016 I have cpt2 difficency Obesity On home oxygen therapy 2L via NC, PRN with walking, activity Scoliosis 03/2022 Sleep apnea noncompliant with CPAP; uses home oxygen Sleep apnea, obstructive Past Surgical History: Procedure Laterality Date ALTEMEIER PROCEDURE N/A 03/30/2022 Procedure: ALTEMEIER PROCEDURE; Surgeon: Jada Vargas MD; [place] [facility] [place]; Service: Colorectal CARDIAC CATHETERIZATION N/A 09/26/2022 Procedure: Coronary Angiogram; Surgeon: Tor Long MD; Location: [facility]; Service: Cardiovascular CARDIOVASCULAR STRESS TEST CHOLECYSTECTOMY COLONOSCOPY with biopsies COLONOSCOPY N/A 02/17/2022 Procedure: COLONOSCOPY; Surgeon: Jada Vargas MD; [place] [facility] [place]; Service: Colorectal EGD N/A 08/15/2022 Procedure: ESOPHAGOGASTRODUODENOSC OPY WITH BIOPSY; Surgeon: Tyshawn Santos MD; Location: [facility]; Service: Gastroenterology GALLBLADDER HC LEFT HEART CATH N/A 09/26/2022 Procedure: Left Heart Cath; Surgeon: Tor Long MD; Location: [facility]; Service: Cardiovascular HYSTERECTOMY JOINT REPLACEMENT Left knee ORTHOPEDIC SURGERY r wrist surgery, left ankle, right rotator cuff ROTATOR CUFF REPAIR Right SIGMOIDOSCOPY FLEXIBLE N/A 06/23/2022 Procedure: SIGMOIDOSCOPY FLEXIBLE WITH BIOPSY; Surgeon: Tyshawn Santos MD; Location: [facility]; Service: Gastroenterology THYROIDECTOMY N/A 07/15/2015 Procedure: TOTAL THYROIDECTOMY; Surgeon: Lopez Alonso MD; Location: [facility] NEURO OR; Service: US ECHO TRANSTHORACIC FOLLOWUP LIMITED WRIST SURGERY Right Family History Problem Relation Age of Onset Heart disease Mother Lupus Mother Stroke Mother Arthritis Mother Heart attack Mother Heart disease Father Heart attack Father Hypertension Father Hypertension Sister Hypertension Brother Prostate cancer Brother Colon cancer Brother Hypertension Brother Prostate cancer Brother Colon cancer Brother Hypertension Brother Prostate cancer Brother Stomach cancer Brother Heart attack Maternal Grandmother Heart attack Maternal Grandfather Heart attack Paternal Grandmother Heart attack Paternal Grandfather Breast cancer Neg Hx Social History Socioeconomic History Marital status: Occupational History 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 Social Drivers of Health Financial Resource Strain: Medium Risk (06/03/2024) Received from [facility] Overall Financial Resource Strain (CARDIA) Difficulty of Paying Living Expenses: Somewhat hard Food Insecurity: No Food Insecurity (09/02/2024) Hunger Vital Sign Worried About Running Out of Food in the Last Year: Never true Ran Out of Food in the Last Year: Never true Transportation Needs: No Transportation Needs (09/02/2024) PRAPARE - Transportation Lack of Transportation (Medical): No Lack of Transportation (Non-Medical): No Housing Stability: Low Risk (09/02/2024) Housing Stability Vital Sign Unable to Pay for Housing in the Last Year: No Number of Times Moved in the Last Year: 1 Homeless in the Last Year: No Previo (more content not included)... Normal [facility] EKGon 09-02-2024 [facility] INR Coag (PPP) [Relative pablo e]on 09-02-2024 Interpretation and review of laboratory results Normal [facility] PT Coag (PPP) [Time] 12.5 s [facility] During the induction phase of oral anticoagulation, the INR may not reflect the anticoagulation status of the patient. Therapeutic ranges for INR's are: Most clinical situations: INR 2.0-3.0 Mechanical Prosthetic Valve: INR 2.5-3.5 Critical: INR >5.0 [facility] Influenza virus A and B RNA and SARS-CoV-2 (COVID-19) N gene panel CATRINA+probe (Resp)Ordered By: Mahogany Schultz on 09-02-2024 FLUAV RNA CATRINA+probe Ql (Unsp spec) Not detected Not Detected [facility] FLUBV RNA CATRINA+probe Ql (Unsp spec) Not detected Not Detected [facility] Interpretation and review of laboratory results Normal [facility] SARS-CoV-2 (COVID-19) RNA CATRINA+probe Ql (Resp) Not detected Not Detected [facility] POC ARTERIAL BLOOD GAS PANEL -PRIMITIVO [place] 09-02-2024 [id number] 85.7 mm Hg Normal [facility] Comment on above: Performed By: #### L [id number] #### [facility] [address] [address] Maurice Coello M.D. [id number] BASE EXCESS, ARTERIAL 0.0 Normal -2.0-2.0 [facility] [place] [facility] Comment on above: Performed By: #### L [id number] #### [facility] [address] [address] Maurice Coello M.D. [id number] FIO2 35 Normal [facility] Comment on above: Performed By: #### L [id number] #### [facility] [address] [address] Maurice Coello M.D. [id number] HCO3 (Bld) [Moles/Vol] 26.9 mmol/L High 22.0-26.0 [facility] Comment on above: Performed By: #### L [id number] #### [facility] [address] [address] Maurice Coello M.D. [id number] Hematocrit (Bld) [Volume fraction] 36.0 % Normal 36.0-46.0 [facility] Comment on above: Performed By: #### L [id number] #### [facility] [address] [address] Maurice Coello M.D. [id number] Hemoglobin (Bld) [Mass/Vol] 11.8 g/dL Low 12.0-16.0 [facility] Comment on above: Performed By: #### L [id number] #### [facility] LAB [address] [place] [address] Maurice Coello M.D. [id number] Oxygen saturation in Blood 97.3 % Normal 92.0-99.0 [facility] Comment on above: Performed By: #### L [id number] #### [facility] [address] [address] Maurice Coello M.D. [id number] PCO2 ARTERIAL 53.5 mm Hg High 35.0-45.0 [facility] Comment on above: Performed By: #### L [id number] #### [facility] [address] [address] Maurice Coello M.D. [id number] PH ARTERIAL 7.31 Low 7.35-7.45 [facility] Comment on above: Performed By: #### L [id number] #### [facility] [address] [address] Maurice Coello M.D. [id number] PO2 ARTERIAL 94 mm Hg High 75-85 [facility] Comment on above: Performed By: #### L [id number] #### [facility] [address] [address] Maurice Coello M.D. [id number] SPECIMEN SOURCE RADIANCE Brachial, left Normal [facility] Comment on above: Performed By: #### L [id number] #### [facility] [address] [address] Maurice Coello M.D. [id number] POC Arterial Blood [facility] Panel -[facility] 09-02-2024 Alveolar-arterial oxygen Partial pressure difference 85.7 mm Hg [facility] Base excess Calc (Bld) [Moles/Vol] 0 mmol/L -2.0 - 2.0 [facility] CO2 (Bld) [Partial pressure] 53.5 mm[Hg] High [facility] Hematocrit (BldA) [Volume fraction] 36 % 36.0 - 46.0 % [facility] Inhaled oxygen concentration 35 % [facility] Interpretation and review of laboratory results Abnormal [facility] Oxygen (Bld) [Partial pressure] 94 mm[Hg] High [facility] pH (Bld) 7.31 [pH] Low 7.35 - 7.45 [facility] Specimen source Nom (Unsp spec) Brachial, left [facility] POC VENOUS BLOOD [facility] BASE EXCESS, VENOUS -0.2 Normal -2.0-2.0 [facility] Comment on above: Performed By: #### L [id number] #### [facility] [address] [address] Maurice Coello M.D. [id number] FIO2 36 [facility] Comment on above: Performed By: #### L [id number] #### [facility] [address] [address] Maurice Coello M.D. [id number] HCO3 (Bld) [Moles/Vol] 28.8 mmol/L High 24.0-28.0 [facility] Comment on above: Performed By: #### L [id number] #### [facility] [address] [address] Maurice Coello M.D. [id number] Hematocrit (Bld) [Volume fraction] 38.0 % Normal 36.0-46.0 [facility] Comment on above: Performed By: #### L [id number] #### [facility] [address] [address] Maurice Coello M.D. [id number] Hemoglobin (Bld) [Mass/Vol] 12.4 g/dL Normal 12.0-16.0 [facility] Comment on above: Performed By: #### L [id number] #### [facility] [address] [address] Maurice Coello M.D. [id number] LITER FLOW 4 [facility] Comment on above: Performed By: #### L [id number] #### [facility] [address] [address] Maurice Coello M.D. [id number] Oxygen saturation in Blood 78.0 % High 40.0-70.0 [facility] Comment on above: Performed By: #### L [id number] #### [facility] [address] [address] Maurice Coello M.D. [id number] PCO2 VENOUS 67.6 mm Hg High 41.0-51.0 [facility] Comment on above: Performed By: #### L [id number] #### [facility] [address] [place], [place] [address] Maurice Coello M.D. [id number] PH VENOUS 7.24 Low 7.32-7.42 [facility] Comment on above: Performed By: #### L [id number] #### [facility] [address] [address] Maurice Coello M.D. [id number] PO2 VENOUS 46 mm Hg High 25-40 [facility] Comment on above: Performed By: #### L [id number] #### [facility] [address] [address] Maurice Coello M.D. [id number] SPECIMEN SOURCE RADIANCE Not specified Normal [facility] Comment on above: Performed By: #### L [id number] #### [facility] [address] [address] Maurice Coello M.D. [id number] POC Venous Blood Gas Panel-[facility] 09-02-2024 Base excess Calc (BldV) [Moles/Vol] -0.2000 mmol/L -2.0 - 2.0 [facility] CO2 (BldV) [Partial pressure] 67.6 mm[Hg] High [facility] Hematocrit (BldA) [Volume fraction] 38 % 36.0 - 46.0 % [facility] Inhaled oxygen concentration 36 % [facility] Inhaled oxygen flow rate 4 L/min [facility] Interpretation and review of laboratory results Abnormal [facility] Oxygen (BldV) [Partial pressure] 46 mm[Hg] High [facility] Oxygen saturation in Venous blood 78 % High 40.0 - 70.0 % [facility] pH (BldV) 7.24 [pH] Low 7.32 - 7.42 [facility] Specimen source Nom (Unsp spec) Not specified [facility] PT/INRon 09-02-2024 INR Coag (PPP) [Relative time] 0.9 {INR} 0.8 - 1.1 [facility] INR Coag (PPP) [Relative time] 0.9 {INR} Normal 0.8-1.1 [facility] Comment on above: Order Comment: [facility] has implemented the eGFR calculation approach that does not have a coefficient for race that conforms to the NKF-ASN Task Force Recommendations. Performed By: #### 4 [id number] #### LAB [address] [address] Maurice Coello M.D. [id number] PT Coag (PPP) [Time] 12.5 s Normal 11.8-14.3 [facility] Comment on above: Order Comment: [facility] has implemented the eGFR calculation approach that does not have a coefficient for race that conforms to the NKF-ASN Task Force Recommendations. Performed By: #### 4 6124 #### LAB [address] [address] Maurice Coello M.D. [id number] TROPONINon 09-02-2024 TROPONIN T DELTA CHANGE INTERPRETATION Probable non-acute cardiac injury or late presentation of acute injury. [facility] Comment on above: Performed By: #### 4 [id number] #### LAB [address] [address] Maurice Coello M.D. [id number] TROPONIN T DELTA DIFFERENCE -4 ng/L Normal < = -/+ 7 change [facility] Comment on above: Performed By: #### 4 [id number] #### LAB [address] [address] Maurice Coello M.D. [id number] TROPONIN T NG/L 14 ng/L Normal <=14 [facility] Comment on above: Performed By: #### 4 [id number] #### LAB [address] [address] Maurice Coello M.D. [id number] BASELINE TROPONIN T NG/L 18 ng/L Off scale high <=14 [facility] Comment on above: Performed By: #### 4 [id number] ####[facility] LAB [address] [address] Maurice Coello M.D. [id number] TROPONIN T INTERPRETATION Possible acute cardiac injury. [facility] Comment on above: Performed By: #### 4 [id number] #### LAB [address] [address] Maurice Coello M.D. [id number] Troponin x 2 (Now and Repeat in 3 hours)Ordered By: Bhumi Teixeira on 09-02-2024 Delta Difference Troponin T -4 ng/L < = -/+ 7 change [facility] Interp Troponin T Delta Change Probable non-acute cardiac injury or late presentation of acute injury. [facility] Troponin T 14 ng/L NINF - 14 ng/L [facility] Troponin x 2 (Now and Repeat in 3 hours)Ordered By: Sunita Rodriguez on 09-02-2024 Interpretation and review of laboratory results Abnormal [facility] Troponin T 18 ng/L Critically high NINF - 14 ng/L [facility] Troponin T Interpretation Possible acute cardiac injury. [facility] URINALYSISon 09-02-2024 BACTERIA, URINE None Seen Normal None Seen [facility] Comment on above: Order Comment: Micro scopic examination is performed on all urinalysis samples and only positive findings are reported. The test for blood on the chemical analytic portion of urinalysis may also be positive due to hemoglobinuria and myoglobinuria and if red blood cells are present they are quantified by microscopic examination. Performed By: #### 4 [id number] #### [facility] [address] [address] Maurice Coello M.D. [id number] BILIRUBIN, URINE Negative Normal Negative [facility] Comment on above: Order Comment: Micro scopic examination is performed on all urinalysis samples and only positive findings are reported. The test for blood on the chemical analytic portion of urinalysis may also be positive due to hemoglobinuria and myoglobinuria and if red blood cells are present they are quantified by microscopic examination. Performed By: #### 4 [id number] #### [facility] LAB [address] [place] [id number] Maurice Coello M.D. [id number] BLOOD, URINE Small Abnormal Negative [facility] Comment on above: Order Comment: Micro scopic examination is performed on all urinalysis samples and only positive findings are reported. The test for blood on the chemical analytic portion of urinalysis may also be positive due to hemoglobinuria and myoglobinuria and if red blood cells are present they are quantified by microscopic examination. Performed By: #### 4 [id number] #### LAB [address] [address] Maurice Coello M.D. [id number] Clarity (U) Clear Normal Clear [facility] Comment on above: Order Comment: Micro scopic examination is performed on all urinalysis samples and only positive findings are reported. The test for blood on the chemical analytic portion of urinalysis may also be positive due to hemoglobinuria and myoglobinuria and if red blood cells are present they are quantified by microscopic examination. Performed By: #### 4 [id number] #### LAB [address] [address] Maurice Coello M.D. [id number] Color (U) Colorless Normal Colorless, Yellow [facility] Comment on above: Order Comment: Micro scopic examination is performed on all urinalysis samples and only positive findings are reported. The test for blood on the chemical analytic portion of urinalysis may also be positive due to hemoglobinuria and myoglobinuria and if red blood cells are present they are quantified by microscopic examination. Performed By: #### 4 [id number] #### LAB [address] [address] Maurice Coello M.D. [id number] Glucose Ql (U) Negative Normal Negative [facility] Comment on above: Order Comment: Micro scopic examination is performed on all urinalysis samples and only positive findings are reported. The test for blood on the chemical analytic portion of urinalysis may also be positive due to hemoglobinuria and myoglobinuria and if red blood cells are present they are quantified by microscopic examination. Performed By: #### 4 [id number] #### LAB [address] [address] Maurice Coello M.D. [id number] Ketones Ql (U) Negative Normal Negative [facility] Comment on above: Order Comment: Micro scopic examination is performed on all urinalysis samples and only positive findings are reported. The test for blood on the chemical analytic portion of urinalysis may also be positive due to hemoglobinuria and myoglobinuria and if red blood cells are present they are quantified by microscopic examination. Performed By: #### 4 [id number] #### LAB [address] [place], [place] [address] Maurice Coello M.D. [id number] Leukocyte esterase Test strip Ql (U) Negative Normal Negative [facility] Comment on above: Order Comment: Micro scopic examination is performed on all urinalysis samples and only positive findings are reported. The test for blood on the chemical analytic portion of urinalysis may also be positive due to hemoglobinuria and myoglobinuria and if red blood cells are present they are quantified by microscopic examination. Performed By: #### 4 [id number] #### LAB [address] [place], [place] [address] Maurice Coello M.D. [id number] MUCUS, URINE Rare Normal None Seen, Rare [facility] Comment on above: Order Comment: Micro scopic examination is performed on all urinalysis samples and only positive findings are reported. The test for blood on the chemical analytic portion of urinalysis may also be positive due to hemoglobinuria and myoglobinuria and if red blood cells are present they are quantified by microscopic examination. Performed By: #### 4 [id number] #### LAB [address] [place], [place] [address] Maurice Coello M.D. [id number] NITRITE, URINE Negative Normal Negative [facility] Comment on above: Order Comment: Micro scopic examination is performed on all urinalysis samples and only positive findings are reported. The test for blood on the chemical analytic portion of urinalysis may also be positive due to hemoglobinuria and myoglobinuria and if red blood cells are present they are quantified by microscopic examination. Performed By: #### 4 [id number] #### LAB [address] [place], [place] [address] Maurice Coello M.D. [id number] pH (U) 5.0 [pH] Normal 5.0-7.0 [facility] Comment on above: Order Comment: Micro scopic examination is performed on all urinalysis samples and only positive findings are reported. The test for blood on the chemical analytic portion of urinalysis may also be positive due to hemoglobinuria and myoglobinuria and if red blood cells are present they are quantified by microscopic examination. Performed By: #### 4 [id number] #### LAB [address] [place], [place] [address] Maurice Coello M.D. [id number] PROTEIN, URINE Negative Normal Negative [facility] Comment on above: Order Comment: Micro scopic examination is performed on all urinalysis samples and only positive findings are reported. The test for blood on the chemical analytic portion of urinalysis may also be positive due to hemoglobinuria and myoglobinuria and if red blood cells are present they are quantified by microscopic examination. Performed By: #### 4 [id number] #### LAB [address] [place] [id number] Maurice Coello M.D. [id number] Specific gravity (U) [Rel density] 1.008 Normal 1.005-1.025 [facility] Comment on above: Order Comment: Micro scopic examination is performed on all urinalysis samples and only positive findings are reported. The test for blood on the chemical analytic portion of urinalysis may also be positive due to hemoglobinuria and myoglobinuria and if red blood cells are present they are quantified by microscopic examination. Performed By: #### 4 [id number] #### LAB [address] [address] Maurice Coello M.D. [id number] SQUAMOUS EPITHELIAL < Normal 0-4 [facility] Comment on above: Order Comment: Micro scopic examination is performed on all urinalysis samples and only positive findings are reported. The test for blood on the chemical analytic portion of urinalysis may also be positive due to hemoglobinuria and myoglobinuria and if red blood cells are present they are quantified by microscopic examination. Performed By: #### 4 [id number] #### LAB [address] [place] [id number] Maurice Coello M.D. [id number] UROBILINOGEN, URINE <2.0 Normal <2.0 [facility] Comment on above: Order Comment: Micro scopic examination is performed on all urinalysis samples and only positive findings are reported. The test for blood on the chemical analytic portion of urinalysis may also be positive due to hemoglobinuria and myoglobinuria and if red blood cells are present they are quantified by microscopic examination. Performed By: #### [id number] #### [address] [place], [place] [address] Maurice Coello M.D. [id number] WBC LM.HPF (Urine sed) [#/Area] 3 /[HPF] Normal 0-5 [facility] Comment on above: Order Comment: Micro scopic examination is performed on all urinalysis samples and only positive findings are reported. The test for blood on the chemical analytic portion of urinalysis may also be positive due to hemoglobinuria and myoglobinuria and if red blood cells are present they are quantified by microscopic examination. Performed By: #### [id number] #### [address] [place], [place] [address] Maurice Coello M.D. [id number] US DUPLEX VENOUS LEG LEFTon 09-02-2024 US DUPLEX VENOUS LEG LEFT Patient Info Name: RADHA SHAFER Age: 64 years : 1960 Gender: Female Exam Date: 09/02/2024 1:42 PM Patient Status: Inpatient Family Practice Physician: Prema Hale RVT Referring Physician: OLIVIA Contreras; Indications R60.0 - Localized edema Procedure Description 93647 Duplex examination using B-mode, color and spectral Doppler of extremity veins including responses to compression and other maneuvers; unilateral or limited study. Conclusions * No evidence of deep or superficial vein thrombosis in the left lower extremity. Risk Factors Patient has a history of hypertension, malignancy, diabetes, obesity and tobacco use-previous. . Report Signatures Finalized by Tadeo Hoang MD on 09/02/2024 02:39 PM External Iliac: - External Iliac: - External Iliac: - External Iliac: - External Iliac: Normal External Iliac: Normal Common Femoral: Complete Common Femoral: Normal Common Femoral: Normal Common Femoral: Complete Common Femoral: Normal Common Femoral: Normal Femoral: - Femoral: Complete Femoral: - Femoral: Normal Femoral: - Femoral: Normal Peroneal: - Peroneal: Complete Peroneal: - Peroneal: - Peroneal: - Peroneal: - Profunda Femoral: - Profunda Femoral: - Profunda Femoral: Complete Profunda Femoral: - Profunda Femoral: - Popliteal: - Popliteal: Complete Popliteal: - Popliteal: Normal Popliteal: - Popliteal: Normal Posterior Tibial: - Posterior Tibial: Complete Posterior Tibial: - Posterior Tibial: - Posterior Tibial: - Posterior Tibial: - Gastrocnemius: - Gastrocnemius: - Gastrocnemius: - Gastrocnemius: - Gastrocnemius: - Gastrocnemius: - Soleal: - Soleal: - Soleal: - Soleal: - Soleal: - Soleal: - Great Saphenous: - Great Saphenous: Complete Great Saphenous: - Great Saphenous: - Great Saphenous: - Great Saphenous: - Small Saphenous: - Small Saphenous: - Small Saphenous: - Small Saphenous: - Small Saphenous: - Small Saphenous: - - Normal [facility] Ultrasound duplex venous leg lefton 09-02-2024 Patient Info Name: RADHA SHAFER Age: 64 years : 1960 Gender: Female Exam Date: 09/02/2024 1:42 PM Patient Status: Inpatient Family Practice Physician: Prema Hale RVT Referring Physician: OLIVIA Contreras; Indications R60.0 - Localized edema Procedure Description 91809 Duplex examination using B-mode, color and spectral Doppler of extremity veins including responses to compression and other maneuvers; unilateral or limited study. Conclusions * No evidence of deep or superficial vein thrombosis in the left lower extremity. Risk Factors Patient has a history of hypertension, malignancy, diabetes, obesity and tobacco use-previous. . Report Signatures Finalized by Tadeo Hoang MD on 09/02/2024 02:39 PM External Iliac: - External Iliac: - External Iliac: - External Iliac: - External Iliac: Normal External Iliac: Normal Common Femoral: Complete Common Femoral: Normal Common Femoral: Normal Common Femoral: Complete Common Femoral: Normal Common Femoral: Normal Femoral: - Femoral: Complete Femoral: - Femoral: Normal Femoral: - Femoral: Normal Peroneal: - Peroneal: Complete Peroneal: - Peroneal: - Peroneal: - Peroneal: - Profunda Femoral: - Profunda Femoral: - Profunda Femoral: Complete Profunda Femoral: - Profunda Femoral: - Popliteal: - Popliteal: Complete Popliteal: - Popliteal: Normal Popliteal: - Popliteal: Normal Posterior Tibial: - Posterior Tibial: Complete Posterior Tibial: - Posterior Tibial: - Posterior Tibial: - Posterior Tibial: - Gastrocnemius: - Gastrocnemius: - Gastrocnemius: - Gastrocnemius: - Gastrocnemius: - Gastrocnemius: - Soleal: - Soleal: - Soleal: - Soleal: - Soleal: - Soleal: - Great Saphenous: - Great Saphenous: Complete Great Saphenous: - Great Saphenous: - Great Saphenous: - Great Saphenous: - Small Saphenous: - Small Saphenous: - Small Saphenous: - Small Saphenous: - Small Saphenous: - Small Saphenous: - - FUJI SYNAPSE Tadeo Castrejon MD - 09/02/2024 Patient Info Name: RADHA SHAFER Age: 64 years : 1960 Gender: Female Exam Date: 09/02/2024 1:42 PM Patient Status: Inpatient Family Practice Physician: Prema Hale RVT Referring Physician: OLIVIA Contreras; Indications R60.0 - Localized edema Procedure Description 09801 Duplex examination using B-mode, color and spectral Doppler of extremity veins including responses to compression and other maneuvers; unilateral or limited study. Conclusions * No evidence of deep or superficial vein thrombosis in the left lower extremity. Risk Factors Patient has a history of hypertension, malignancy, diabetes, obesity and tobacco use-previous. . Report Signatures Finalized by Tadeo Hoang MD on 09/02/2024 02:39 PM External Iliac: - External Iliac: - External Iliac: - External Iliac: - External Iliac: Normal External Iliac: Normal Common Femoral: Complete Common Femoral: Normal Common Femoral: Normal Common Femoral: Complete Common Femoral: Normal Common Femoral: Normal Femoral: - Femoral: Complete Femoral: - Femoral: Normal Femoral: - Femoral: Normal Peroneal: - Peroneal: Complete Peroneal: - Peroneal: - Peroneal: - Peroneal: - Profunda Femoral: - Profunda Femoral: - Profunda Femoral: Complete Profunda Femoral: - Profunda Femoral: - Popliteal: - Popliteal: Complete Popliteal: - Popliteal: Normal Popliteal: - Popliteal: Normal Posterior Tibial: - Posterior Tibial: Complete Posterior Tibial: - Posterior Tibial: - Posterior Tibial: - Posterior Tibial: - Gastrocnemius: - Gastrocnemius: - Gastrocnemius: - Gastrocnemius: - Gastrocnemius: - Gastrocnemius: - Soleal: - Soleal: - Soleal: - Soleal: - Soleal: - Soleal: - Great Saphenous: - Great Saphenous: Complete Great Saphenous: - Great Saphenous: - Great Saphenous: - Great Saphenous: - Small Saphenous: - Small Saphenous: - Small Saphenous: - Small Saphenous: - Small Saphenous: - Small Saphenous: - - [facility] UrinalysisOrdered By: Nicol Perez on 09-02-2024 Bacteria Auto Ql (U) None Seen None Se en /hpf [facility] Bilirubin Ql (U) Negative Negative [facility] th Clarity Refractometry automated (U) Clear Clear [facility] Color (U) Colorless Colorless, Yellow [facility] Epithelial cells.squamous Auto (Urine sed) [#/Area] [facility] Glucose Auto test strip (U) [Mass/Vol] Negative Negative mg/dL [facility] Hemoglobin Auto test strip Ql (U) Small Abnormal Negative [facility] Interpretation and review of laboratory results Abnormal [facility] Ketones (U) [Mass/Vol] Negative Negat radha mg/dL [facility] Leukocyte esterase Auto test strip Ql (U) Negative Negative [facility] Mucus Auto (Urine sed) [#/Area] Rare None Seen, Rare /lpf [facility] Nitrite Auto test strip Ql (U) Negative Negative [facility] pH (U) 5 [pH] 5.0 - 7.0 [facility] Protein (U) [Mass/Vol] Negative Negat radha mg/dL [facility] Specific gravity (U) [Rel density] 1.008 1.005 - 1.025 [facility] Urobilinogen (U) [Mass/Vol] mg/dL NINF - 2.0 mg/dL [facility] WBC Auto (Urine sed) [#/Area] 3 [facility] Microscopic examinat ion is performed on all urinalysis samples and only positive findings are reported. The test for blood on the chemical analytic portion of urinalysis may also be positive due to hemoglobinuria and myoglobinuria and if red blood cells are present they are quantified by microscopic examination. [facility] VBG (obtain and perform)on [facility] XR CHEST PA/APon 10-28-2024 XR CHEST PA/AP EXAMINATION: XR CHEST PA/AP HISTORY: ORDERING SYSTEM PROVIDED HISTORY: Dyspnea, TECHNOLOGIST PROVIDED HISTORY: Illness/Other Reason for exam: Dyspnea Cancer History: unknown Surgery, RadiationHistory: cholecystectomy, hysterectomy, oophrectomy Encounter Type: Initial Additional signs and symptoms: . ORDERING SYSTEM PROVIDED DIAGNOSIS CODES: COMPARISON: 09/24/2022. FINDINGS: One-view chest x-ray. Calcified pulmonary granuloma seen at the right upper lobe. No pneumothorax, pleural effusion or focal airspace consolidation. Heart is normal in size. Bony thorax is unremarkable. IMPRESSION: No acute cardiopulmonary process. Somewhere/[employer] Workstation ID: [id number] Dictated by: MARIA VICTORIA DAY on MonSep 02, 2024 12:06:39 PM EDT Transcribed by: DANN CAZARES on MonSep 02, 2024 12:21:49 PM EDT Finalized by: MARIA VICTORIA DAY on MonSep 02, 2024 9:39:39 PM EDT Normal [facility] Comment on above: Order Comment: Resul ts of PCR testing for stool pathogens must be taken into clinical context when making treatment decisions. Most gastrointestinal infections due to common bacterial and viral causes are self-limited in nature and do not require antimicrobial therapy. The use of antimicrobial therapy must be carefully weighed against unintended and potentially harmful consequences. The role of antimicrobial therapy depends on the implicated pathogen. In general, antimicrobial agents are only used to treat parasitic infections as well as select bacterial infections. XR Chest PA and Abdomen APon 09-02-2024 No acute cardiopulmonary process. ST/[employer] Workstation ID: [id number] GE RIS EXAMINATION: XR CHEST PA/AP HISTORY: ORDERING SYSTEM PROVIDED HISTORY: Dyspnea, TECHNOLOGIST PROVIDED HISTORY: Illness/Other Reason for exam: Dyspnea Cancer History: unknown Surgery, RadiationHistory: cholecystectomy, hysterectomy, oophrectomy Encounter Type: Initial Additional signs and symptoms: . ORDERING SYSTEM PROVIDED DIAGNOSIS CODES: COMPARISON: 09/24/2022. FINDINGS: One-view chest x-ray. Calcified pulmonary granuloma seen at the right upper lobe. No pneumothorax, pleural effusion or focal airspace consolidation. Heart is normal in size. Bony thorax is unremarkable. GE RIS Maria Victoria Day DO - 09/02/2024 EXAMINATION: XR CHEST PA/AP HISTORY: ORDERING SYSTEM PROVIDED HISTORY: Dyspnea, TECHNOLOGIST PROVIDED HISTORY: Illness/Other Reason for exam: Dyspnea Cancer History: unknown Surgery, RadiationHistory: cholecystectomy, hysterectomy, oophrectomy Encounter Type: Initial Additional signs and symptoms: . ORDERING SYSTEM PROVIDED DIAGNOSIS CODES: COMPARISON: 09/24/2022. FINDINGS: One-view chest x-ray. Calcified pulmonary granuloma seen at the right upper lobe. No pneumothorax, pleural effusion or focal airspace consolidation. Heart is normal in size. Bony thorax is unremarkable. IMPRESSION: No acute cardiopulmonary process. ST/[facility] Workstation ID: [id number] [facility] Radiology Study observation (narrative) [facility] XR Chest PA and Abdomen APOr dered By: Maria Victoria Day on 09-02-2024 [facility] Work Phone: XR KNEE LEFT 2 VIEWS ([address] RD)on 09-02-2024 XR KNEE LEFT 2 VIEWS (STANDARD) EXAMINATION: XR KNEE LEFT 2 VIEWS (STANDARD) HISTORY: ORDERING SYSTEM PROVIDED HISTORY: Pain, TECHNOLOGIST PROVIDED HISTORY: Injury/Trauma Reason for Exam: Left knee pain d/t injury Cancer History: Unknown Surgery, Radiation History: Cholecystectomy, hysterectomy, oophorectomy, left knee replacement Encounter Type: Initial Mechanism of Injury: Fall ORDERING SYSTEM PROVIDED DIAGNOSIS CODES: J96.90 Respiratory failure, unspecified chronicity, unspecified whether with hypoxia or hypercapnia ([facility]) J44.1 COPD exacerbation ([facility]) L03.116 Cellulitis of left knee COMPARISON: 03/19/2011. FINDINGS: Two views of the left knee. Prior total knee replacement. Hardware components are well seated with appropriate alignment. No periprosthetic fracture or hardware loosening. Suboptimal positioning on the lateral view. No significant joint effusion. IMPRESSION: No acute osseous abnormality. Intact total knee replacement. ST/lab Workstation ID: [id number] Dictated by: MARIA VICTORIA DAY on MonSep 02, 2024 3:01:29 PM EDT Transcribed by: MARIANO GRAHAM on MonSep 02, 2024 3:02:48 PM EDT Finalized by: MARIA VICTORIA DAY on MonSep 02, 2024 9:43:59 PM EDT Normal [facility] Comment on above: Order Comment: Resul ts of PCR testing for stool pathogens must be taken into clinical context when making treatment decisions. Most gastrointestinal infections due to common bacterial and viral causes are self-limited in nature and do not require antimicrobial therapy. The use of antimicrobial therapy must be carefully weighed against unintended and potentially harmful consequences. The role of antimicrobial therapy depends on the implicated pathogen. In general, antimicrobial agents are only used to treat parasitic infections as well as select bacterial infections. XR Knee - left 2 Viewson No acute osseous abnormality. Intact total knee replacement. ST/lab Workstation ID: [id number] GE RIS EXAMINATION: XR KNEE LEFT 2 VIEWS (STANDARD) HISTORY: ORDERING SYSTEM PROVIDED HISTORY: Pain, TECHNOLOGIST PROVIDED HISTORY: Injury/Trauma Reason for Exam: Left knee pain d/t injury Cancer History: Unknown Surgery, Radiation History: Cholecystectomy, hysterectomy, oophorectomy, left knee replacement Encounter Type: Initial Mechanism of Injury: Fall ORDERING SYSTEM PROVIDED DIAGNOSIS CODES: J96.90 Respiratory failure, unspecified chronicity, unspecified whether with hypoxia or hypercapnia (HCC) J44.1 COPD exacerbation (HCC) L03.116 Cellulitis of left knee COMPARISON: 03/19/2011. FINDINGS: Two views of the left knee. Prior total knee replacement. Hardware components are well seated with appropriate alignment. No periprosthetic fracture or hardware loosening. Suboptimal positioning on the lateral view. No significant joint effusion. [place] Maria Victoria Day reuben, DO - 09/02/2024 EXAMINATION: XR KNEE LEFT 2 VIEWS (STANDARD) HISTORY: ORDERING SYSTEM PROVIDED HISTORY: Pain, TECHNOLOGIST PROVIDED HISTORY: Injury/Trauma Reason for Exam: Left knee pain d/t injury Cancer History: Unknown Surgery, Radiation History: Cholecystectomy, hysterectomy, oophorectomy, left knee replacement Encounter Type: Initial Mechanism of Injury: Fall ORDERING SYSTEM PROVIDED DIAGNOSIS CODES: J96.90 Respiratory failure, unspecified chronicity, unspecified whether with hypoxia or hypercapnia (HCC) J44.1 COPD exacerbation (HCC) L03.116 Cellulitis of left knee COMPARISON: 03/19/2011. FINDINGS: Two views of the left knee. Prior total knee replacement. Hardware components are well seated with appropriate alignment. No periprosthetic fracture or hardware loosening. Suboptimal positioning on the lateral view. No significant joint effusion. IMPRESSION: No acute osseous abnormality. Intact total knee replacement. ST/lab Workstation ID: [id number] [facility] Radiology Study observation (narrative) [facility] Neurology Visit Reporton Neurology Visit Report [facility] [address], [address] [place] [address] OFFICE VISIT Date of Service: 08/15/24 MR#: [id number] Acct: [id number] Name: RADHA SHAFER Rep #: [id number] : 1960 Provider: Dr. Rusty ayers MD Age/Sex: 64/F Location: [facility] [place]. Status: Signed HPI HPI Chief Complaint: Details: Interim History: Radha returns for follow-up visit. She has stage III/IV chronic renal insufficiency, left-sided facial shingles (2020), sleep apnea (she uses supplemental oxygen; she no longer uses CPAP), and hypothyroidism. She sees a information technology internship. She had a left knee replacement in 2008. She has chronic low back pain. She previously saw a rn pain management, Dr. Mancini, in 2017 and had lumbar injections which were of benefit. Her right knee pain subsided. She has prominent neck pain and has right upper extremity radicular pain that extends to the hand. Her last cervical paraspinal muscle trigger point injection provided about 3 days of pain reduction. Lumbar trigger point injections were of benefit. Percocet 10/325 and oxycodone 10 mg were of benefit. She had previously seen Dr. Jules, an orthopedic surgeon, and had a lumbar epidural steroid injection; this was of benefit. Surgery was not recommended. Physical therapy in the past was not of benefit and had worsened her neck pain. Her low back pain has worsened within recent months and has limited her mobility. She previously took hyoscyamine for abdominal pain following meals. In 2015, she developed marked muscle pain and spasms affecting all extremities. She was found to have elevated CPK, myoglobin, ESR and C-reactive protein. She saw a neurologist at [facility], and was diagnosed with carnitine palmitoyltransferase II (CPT II) deficiency; MCT oil was not well- tolerated; she sees a physician at [facility] in [place] and is prescribed Dojolvi. Tizanidine is of benefit. She had period of increased muscle pain and rhabdomyolysis, and increased renal insufficiency in June 2024 that was triggered by increased physical exertion and dehydration and was hospitalized and had improvement. Her last creatinine kinase in June 2024 was normal. She takes lovastatin for hyperlipidemia and is tolerating this well. She takes doxepin for insomnia. She saw a coal pipeline operator in 2019 for right foot pain and had right foot injections for a heel spur; her foot pain resolved. She had left hip pain. She has had intermittent vertigo since 2019. Meclizine lost efficacy. She denied having hearing loss or tinnitus. She has numbness in the feet. She reported having burning pain in the feet. She has had some left calf cramping; this has occurred at rest and with movement. She takes levothyroxine. Vicodin, baclofen, B12 injection (for fatigue) nabumetone, acetaminophen (for prior right hamstring region pain) and tramadol were not of significant benefit. She is on supplemental oxygen at night for her COPD and sleep apnea (she did not tolerate CPAP). She saw a ethanol operations manager, Dr. 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 The classic inflammatory myopathy produces a mix EMG pattern of small abundant units that are easily recruitable, but have reduced total numbers. The full pattern was not seen in this case, though reduced motor recruitment was seen in a number of muscles. Hepatitis panel (08/26/2010): Negative. Muscle biopsy (10/26/2010): No evidence of inflammatory myopathy. Myofiber atrophy and is especially fiber type grouping were noted and are changes associated with denervation. It cannot be determined from the biopsy if denervation is due to peripheral neuropathy or motor neuron disease. Aldolase, striated muscle antibodies, ACH receptor binding antibodies (12/24/2010): Negative. CPK, myoglobin, aldolase, B12, folate, CMP, magnesium, CBC (03/07/2014): Creatine 1.53, MCV 77.7. Hemoglobin, hematocrit, BUN, creatinine (05/19/2014): BUN 21, creatinine 1.54, hemoglobin 11.5. Serum iron, ferritin (08/22/2014): Total iron 28 (low). Serum thyroglobulin, thyroglobulin antibodies (01/13/2016): Normal. CPK, myoglobin, troponin, TSH, free T4, BMP (01/22/2016): Glucose 126, BUN 21, creatinine 1.38, EGFR 39, CPK 4255, myoglobin 2850, hemoglobin 11.4, MCV 77.9. ESR, C-reactive protein, creatine kinase (01/21/2016): ESR 60, C-reactive protein 2.57 (elevated), creatine kinase 855. BMP, amylase, CPK, myoglobin, C-reactive protein, CBC, ESR (more content not included)... Normal [facility] Basophil percentageOrdered B y: Jennifer Gordon on 02-29-2024 Bilirubin [Mass/Vol] 0.20 mg/dL 0.20-1.00 [facility] Comment on above: For patients on eltr ombopag therapy, use of Dimension [place] TBIL is not recommended. Chloride [Moles/Vol] 104 mmol/L 98-107 [facility] Glucose [Mass/Vol] 137 mg/dL 74-106 [facility] Comment on above: Fasting Glucose resu lt greater than or equal to 126 mg/dL suggests DIABETES MELLITUS per A.D.A. criteria. Potassium [Moles/Vol] 4.7 mmol/L 3.5-5.1 [facility] Protein [Mass/Vol] 7.9 g/dL 6.4-8.2 [facility] Sodium [Moles/Vol] 138 mmol/L 136-145 [facility] Laboratory - Chemistry and C hemistry - challengeOrdered By: Jennifer Gordon on 02-29-2024 Albumin/Globulin [Mass ratio] 0.8 {ratio} 0.9-2.4 [facility] ALP [Catalytic activity/Vol] 85 U/L 45-117 [facility] ALT [Catalytic activity/Vol] 29 U/L 13-56 [facility] CO2 [Moles/Vol] 26.0 mmol/L 21.0-32.0 [facility] Globulin (S) [Mass/Vol] 4.4 g/dL 2.2-4.2 [facility] Urea nitrogen/Creatinine [Mass ratio] 10.6 mg/mg 10-20 [facility] No Panel InformationOrdered By: Jennifer Gordon on 02-29-2024 Estimated GFR (MDRD) Amer 34 mL/min >60 [facility] Comment on above: GFR Calc Estimated GFR (MDRD) Non-Af Amer 28 mL/min >60 [facility] Comment on above: Non- GFR Calc Serum or plasma calcium marivel urement (mass/volume)Ordered By: Jennifer Gordon on 02-29-2024 Calcium [Mass/Vol] 9.3 mg/dL 8.5-10.1 [facility] Serum or plasma creatinine m easurement (mass/volume)Ordered By: Jennifer Gordon on 02-29-2024 Creatinine [Mass/Vol] 1.89 mg/dL 0.55-1.02 [facility] Comment on above: The validity of the calculated GFR & GFRAA in patients over 70 years has not been determined. Clinical correlation is essential. Serum or plasma thyroid stim ulating hormone (TSH) measurement (units/volume)Ordered By: Jennifer Gordon on 02-29-2024 TSH Qn 1.67 uIU/mL 0.358-3.74 [facility] Serum or plasma urea nitroge n measurement (mass/volume)Ordered By: Jennifer Gordon on 02-29-2024 Urea nitrogen [Mass/Vol] 20 mg/dL 7-18 [facility] Thin prep Papanicolaou smear with manual screeningOrdered By: Jennifer Gordon on 02-29-2024 Thin prep Papanicolaou smear with manual screening 3.5 g/dL 3.2-5.0 [facility] Thin prep Papanicolaou smear with manual screening 45 U/L 15-37 [facility] Thin prep Papanicolaou smear with manual screening 8 5-15 [facility] Whole blood hemoglobin A1c/t otal hemoglobin ratio (mass fraction)Ordered By: Jennifer Gordon on 02-29-2024 HbA1c (Bld) [Mass fraction] 5.9 % 3.8-5.6 [facility] Comment on above: Normal < 5.7 % Predi abetic 5.7 - 6.4 % Diabetic >or= 6.5 % Please note range changes. Absolute lymphocyte countOrd ered By: Pascualgwendolyniqra Revelesari on 12-29-2023 Lymphocytes Auto (Unsp spec) [#/Vol] 1.90 10*3/uL 0.83-4.51 [facility] Automated lymphocyte count a s percentage of total leukocytesOrdered By: Eulogiofaith Kamara on 12-29-2023 Lymphocytes/100 WBC Auto (Unsp spec) 17.8 % 19-41 [facility] Basophil percentageOrdered B y: Jennifer Gordon on 12-29-2023 Bilirubin [Mass/Vol] 0.20 mg/dL 0.20-1.00 [facility] Comment on above: For patients on eltr ombopag therapy, use of Dimension [place] TBIL is not recommended. Chloride [Moles/Vol] 106 mmol/L 98-107 [facility] Cholesterol [Mass/Vol] 210 mg/dL <200 [facility] Comment on above: <200 mg/dL Desirable 200-240 mg/dL Borderline >240 mg/dL High Risk Glucose [Mass/Vol] 141 mg/dL 74-106 [facility] Comment on above: Fasting Glucose resu lt greater than or equal to 126 mg/dL suggests DIABETES MELLITUS per A.D.A. criteria. Potassium [Moles/Vol] 4.6 mmol/L 3.5-5.1 [facility] Protein [Mass/Vol] 7.7 g/dL 6.4-8.2 [facility] Sodium [Moles/Vol] 137 mmol/L 136-145 [facility] Triglyceride [Mass/Vol] 265 mg/dL <199 [facility] Comment on above: The drugs N-Acetylcy steine and Metamizole may falsely depress this assay.Serum Triglycerides Reference Interval Normal <150 mg/dL Borderline high 150 - 199 mg/dL High 200 - 499 mg/dL Very High > or = 500 mg/dL Basophil percentageOrdered B y: German Kamara on 12-29-2023 Basophils/100 WBC (Bld) 0.8 % 0-1 [facility] Eosinophils/100 WBC (Bld) 2.2 % 0-5 [facility] Hemoglobin (Bld) [Mass/Vol] 11.7 g/dL 12.0-15.0 [facility] Monocytes/100 WBC (Bld) 6.9 % 0-10 [facility] Neutrophils (Bld) [#/Vol] 7.7 10*3/uL 2.0-7.7 [facility] Neutrophils/100 WBC (Bld) 71.8 % 47-70 [facility] WBC (Bld) [#/Vol] 10.7 10*3/uL 4.4-11.0 [facility] Bilirubin Test strip Ql (U)O rdered By: German Kamara on 12-29-2023 Bilirubin Ql (U) Negative Negative [facility] Determination of erythrocyte mean corpuscular volume (MCV)Ordered By: German Kamara on 12-29-2023 MCV (RBC) [Entitic vol] 85.8 fL 81-99 [facility] Erythrocyte distribution wid th ratioOrdered By: German Kamara on 12-29-2023 Erythrocyte distribution width (RBC) [Ratio] 15.9 % 11.6-14.6 [facility] Erythrocyte distribution wid th standard deviationOrdered By: German Kamara on 12-29-2023 Erythrocyte distribution width (RBC) [Entitic vol] 50.2 fL 35.1-43.9 [facility] Hematocrit Auto (Bld) [Volum e fraction]Ordered By: German Kamara on 12-29-2023 Hematocrit (Bld) [Volume fraction] 39.3 % 37-47 [facility] Immature granulocytes/100 WB C Auto (Bld)Ordered By: German Kamara on 12-29-2023 Immature granulocytes/100 WBC (Bld) 0.500 % 0.0-0.9 [facility] Comment on above: IG% - Immature Granu locytes (promyelocytes, myelocytes and metamyelocytes) > 1% indicates that a LEFT SHIFT is Present. Ketones Test strip Ql (U)Ord ered By: German Kamara on 12-29-2023 Ketones Ql (U) Negative Negative [facility] Laboratory - Chemistry and C hemistry - challengeOrdered By: Jennifer Gordon on 12-29-2023 Albumin/Globulin [Mass ratio] 0.8 {ratio} 0.9-2.4 [facility] ALP [Catalytic activity/Vol] 89 U/L 45-117 [facility] ALT [Catalytic activity/Vol] 21 U/L 13-56 [facility] Cholesterol in HDL [Mass/Vol] 36 mg/dL >40 [facility] Comment on above: The drugs N-Acetylcy steine and Metamizole may falsely depress this assay. Reference Range HDL <40 mg/dL Low HDL Cholesterol HDL >or= 60 mg/dL High HDL Cholesterol Cholesterol in LDL [Mass/Vol] 121 mg/dL 0-130 [facility] CO2 [Moles/Vol] 26.0 mmol/L 21.0-32.0 [facility] Globulin (S) [Mass/Vol] 4.3 g/dL 2.2-4.2 [facility] Magnesium [Mass/Vol] 2.3 mg/dL 1.6-2.6 [facility] Urea nitrogen/Creatinine [Mass ratio] 13.5 mg/mg 10-20 [facility] Laboratory - Hematology and Cell countsOrdered By: German Kamara on 12-29-2023 MCH (RBC) [Entitic mass] 25.5 pg 27.0-32.0 [facility] MCHC (RBC) [Mass/Vol] 29.8 g/dL 32-36 [facility] Nucleated RBC/100 WBC (Bld) [Ratio] 0 % 0-5 [facility] Platelet mean volume (Bld) [Entitic vol] 10.2 fL 6.2-12.0 [facility] Platelets (Bld) [#/Vol] 350 10*3/uL 150-450 [facility] Nitrite Test strip Ql (U)Ord ered By: German Kamara on 12-29-2023 Nitrite Ql (U) Negative Negative [facility] No Panel InformationOrdered By: Jennifer Gordon on 12-29-2023 Estimated GFR (MDRD) Amer 33 mL/min >60 [facility] Comment on above: GFR Calc Estimated GFR (MDRD) Non-Af Amer 28 mL/min >60 [facility] Comment on above: Non- GFR Calc VLDL Cholesterol 53 mg/dL 5-40 [facility] No Panel InformationOrdered By: German Kamara on 12-29-2023 Parathyroid Hormone (Intact) 96.2 pg/mL 18.4-80.1 [facility] Vitamin D 25-Hydroxy 65.9 ng/mL [facility] Comment on above: Vitamin D 25(OH) Sta tus Range Deficiency <20 ng/mL (50nmol/L) Insufficiency 20 - 30 ng/mL (50 - 75 nmol/L) Sufficiency 30 - 100 ng/mL (75 - 250 nmol/L) Toxicity >100 ng/mL (>250 nmol/L) Protein Test strip Ql (U)Ord ered By: Greman Kamara on 12-29-2023 Protein Ql (U) 100 mg/dl Negative [facility] RBC Auto (Bld) [#/Vol]Ordere d By: German Kamara on 12-29-2023 RBC (Bld) [#/Vol] 4.58 10*6/uL 4.2-5.4 [facility] Serum or plasma calcium marivel urement (mass/volume)Ordered By: Jennifer Gordon on 12-29-2023 Calcium [Mass/Vol] 8.9 mg/dL 8.5-10.1 [facility] Serum or plasma creatinine m easurement (mass/volume)Ordered By: Jennifer Gordon on 12-29-2023 Creatinine [Mass/Vol] 1.93 mg/dL 0.55-1.02 [facility] Comment on above: The validity of the calculated GFR & GFRAA in patients over 70 years has not been determined. Clinical correlation is essential. Serum or plasma thyroid stim ulating hormone (TSH) measurement (units/volume)Ordered By: Jennifer Gordon on 12-29-2023 TSH Qn 24.50 uIU/mL 0.358-3.74 [facility] Serum or plasma triiodothyro nine measurement by immunoassay (mass/volume)Ordered By: Jennifer Gordon on 12-29-2023 T3 IA [Mass/Vol] 1.06 ng/mL 0.6-1.81 [facility] Serum or plasma urea nitroge n measurement (mass/volume)Ordered By: Jennifer Gordon on 12-29-2023 Urea nitrogen [Mass/Vol] 26 mg/dL 7-18 [facility] Thin prep Papanicolaou smear with manual screeningOrdered By: Jennifer Gordon on 12-29-2023 Thin prep Papanicolaou smear with manual screening 3.4 g/dL 3.2-5.0 [facility] Thin prep Papanicolaou smear with manual screening 20 U/L 15-37 [facility] Thin prep Papanicolaou smear with manual screening 5 5-15 [facility] Thin prep Papanicolaou smear with manual screening 1.10 ng/dL 0.76-1.46 [facility] Thin prep Papanicolaou smear with manual screeningOrdered By: German Kamara on 12-29-2023 Protein (U) [Mass/Vol] 62.0 mg/dL 0.0-11.8 [facility] Urine blood detectionOrdered By: German Kamara on 12-29-2023 RBC Ql (U) Negative Negative [facility] Urine clarityOrdered By: Ludin Kamara on 12-29-2023 Clarity (U) Clear Clear [facility] Urine color determinationOrd ered By: German Kamara on 12-29-2023 Color (U) Yellow Yellow [facility] Urine creatinine measurement (mass/volume)Ordered By: German Kamara on 12-29-2023 Creatinine (U) [Mass/Vol] 98.60 mg/dL NO RANGE EST. [facility] Urine glucose detectionOrder ed By: German Kamara on 12-29-2023 Glucose Ql (U) Normal mg/dl Normal [facility] Urine leukocyte esterase det ection by dipstickOrdered By: German Kamara on 12-29-2023 Leukocyte esterase Test strip Ql (U) 100 /ul Negative [facility] Urine pHOrdered By: Harriet Kamara on 12-29-2023 pH (U) 6.0 [pH] 5.0 - 8.0 [facility] Urine protein/creatinine mas s ratioOrdered By: German Kamara on 12-29-2023 Protein/Creatinine (U) [Mass ratio] 629 mg/g CRE 0-200 [facility] Urine specific gravity measu rementOrdered By: German Kamara on 12-29-2023 Specific gravity (U) [Rel density] 1.015 1.002-1.030 [facility] Urine urobilinogen measureme ntOrdered By: German Kamara on 12-29-2023 Urobilinogen Ql (U) Normal mg/dl Normal [facility] Albumin Elph [Mass/Vol]Order ed By: Rusty Dozier on 11-28-2023 Albumin [Mass/Vol] 3.8 g/dL 2.9-4.4 [facility] Basophil percentageOrdered B y: Rusty Dozier on 11-28-2023 Basophil percentage Comment . [facility] Comment on above: Bence Davila Protein positive; kappa type.Performed at: [place] [id number] Director: Myron Kennedy PhD, Phone: [phone] Interpretation of serum or p lasma protein pattern by immunofixation (narrative resultOrdered By: Rusty Dozier on 11-28-2023 Protein Fractions Immunofixation Jamison [Interp] Not Observed g/dL Not Observed [facility] Laboratory - Chemistry and C hemistry - challengeOrdered By: Rusty Dozier on 11-28-2023 IgM (U) [Mass/Vol] 58 mg/dL 26-217 [facility] No Panel InformationOrdered By: Rusty Dozier on 11-28-2023 Addendum Document Comment . [facility] Comment on above: Protein electrophore sis scan will follow via computer,mail, or rn hemodialysis charge delivery. Free Lambda Light Chains, Quant 41.5 mg/L 5.7-26.3 [facility] Serum [id number] measu rement by electrophoresisOrdered By: Rusty Dozier on 11-28-2023 Alpha 1 globulin Elph [Mass/Vol] 0.2 g/dL 0.0-0.4 [facility] Alpha 1 globulin Elph [Mass/Vol] 1.0 g/dL 0.4-1.0 [facility] Serum globulin measurement ( mass/volume)Ordered By: Rusty Dozier on 11-28-2023 Globulin (S) [Mass/Vol] 3.6 g/dL 2.2-3.9 [facility] Serum immunoglobulin kappa l ight chains/immunoglobulin lambda light chains mass ratioOrdered By: Rusty Dozier on 11-28-2023 Immunoglobulin light chains.kappa/Immunoglob ulin light chains.lambda (S) [Mass ratio] 1.26 0.26-1.65 [facility] Serum or plasma IgA measurem ent (mass/volume)Ordered By: Rusty Dozier on 11-28-2023 IgA [Mass/Vol] 147 mg/dL 87-352 [facility] Serum or plasma IgG measurem ent (mass/volume)Ordered By: Rusty Dozier on 11-28-2023 IgG [Mass/Vol] 1444 mg/dL 586-1602 [facility] Serum or plasma beta globuli n measurement by electrophoresis (mass/volume)Ordered By: Rusty Dozier on 11-28-2023 Beta globulin Elph [Mass/Vol] 1.1 g/dL 0.7-1.3 [facility] Serum or plasma gamma globul in measurement by electrophoresis (mass/volume)Ordered By: Rusty Dozier on 11-28-2023 Gamma globulin Elph [Mass/Vol] 1.3 g/dL 0.4-1.8 [facility] Serum or plasma immunoelectr ophoresis interpretation (nominal result)Ordered By: Rusty Dozier on 11-28-2023 Interpretation IEP [Interp] Comment . [facility] Comment on above: No monoclonality det ected. Serum or plasma immunoglobul in kappa light chains measurement (mass/volume)Ordered By: Rusty Dozier on 11-28-2023 Immunoglobulin light chains.kappa [Mass/Vol] 52.2 mg/L 3.3-19.4 [facility] Thin prep Papanicolaou smear with manual screeningOrdered By: Rusty Dozier on 11-28-2023 Thin prep Papanicolaou smear with manual screening 1.1 0.7-1.7 [facility] Total protein bloodOrdered B y: Rusty Dozier on 11-28-2023 Protein [Mass/Vol] 7.4 g/dL 6.0-8.5 [facility] Tendon Injection: Flexor Ten don Sheathon 10-16-2023 Rivas Jules MD 10/16/2023 2:42 PM Tendon Injection: Flexor Tendon Sheath Performed by: Rivas Jules MD Authorized by: Rivas Jules MD Consent given by: Patient Timeout performed at: 10/16/2023 2:41 PM Indications: Pain Location: Thumb Laterality: Left Needle size: 22 G Medications: 80 mg methylPREDNISolone acetate 40 mg/mL Anesthetic used: Lidocaine 1% [facility] Absolute lymphocyte countOrd ered By: Jennifer Gordon on 06-05-2023 Lymphocytes Auto (Unsp spec) [#/Vol] 2.66 10*3/uL 0.83-4.51 [facility] Basophil percentageOrdered B y: Jennifer Gordon on 06-05-2023 Basophils/100 WBC (Bld) 0.8 % 0-1 [facility] Bilirubin [Mass/Vol] 0.20 mg/dL 0.20-1.00 [facility] Comment on above: For patients on eltr ombopag therapy, use of Dimension [place] TBIL is not recommended. Chloride [Moles/Vol] 104 mmol/L 98-107 [facility] Cholesterol [Mass/Vol] 220 mg/dL <200 [facility] Comment on above: <200 mg/dL Desirable 200-240 mg/dL Borderline >240 mg/dL High Risk Eosinophils/100 WBC (Bld) 3.4 % 0-5 [facility] Glucose [Mass/Vol] 107 mg/dL 74-106 [facility] Comment on above: Fasting Glucose resu lt from 100 to 125 mg/dL suggests IMPAIRED HOMEOSTASIS per A.D.A. criteria. Neutrophils (Bld) [#/Vol] 6.1 10*3/uL 2.0-7.7 [facility] Neutrophils/100 WBC (Bld) 60.7 % 47-70 [facility] Potassium [Moles/Vol] 5.4 mmol/L 3.5-5.1 [facility] Protein [Mass/Vol] 8.1 g/dL 6.4-8.2 [facility] Sodium [Moles/Vol] 136 mmol/L 136-145 [facility] Triglyceride [Mass/Vol] 240 mg/dL <199 [facility] Comment on above: The drugs N-Acetylcy steine and Metamizole may falsely depress this assay.Serum Triglycerides Reference Interval Normal <150 mg/dL Borderline high 150 - 199 mg/dL High 200 - 499 mg/dL Very High > or = 500 mg/dL WBC (Bld) [#/Vol] 10.0 10*3/uL 4.4-11.0 [facility] Blood erythrocytes count (nu mber/volume)Ordered By: Jennifer Gordon on 06-05-2023 RBC (Bld) [#/Vol] 4.74 10*6/uL 4.2-5.4 [facility] Blood hemoglobin measurement (mass/volume)Ordered By: Jennifer Gordon on 06-05-2023 Hemoglobin (Bld) [Mass/Vol] 11.5 g/dL 12.0-15.0 [facility] Blood lymphocytes/100 leukoc ytesOrdered By: Jennifer Gordon on 06-05-2023 Lymphocytes/100 WBC (Bld) 26.7 % 19-41 [facility] Blood monocytes/100 leukocyt esOrdered By: Jennifer Gordon on 06-05-2023 Monocytes/100 WBC (Bld) 7.9 % 0-10 [facility] Blood platelet mean volumeOr dered By: Jennifer Gordon on 06-05-2023 Platelet mean volume (Bld) [Entitic vol] 10.5 fL 6.2-12.0 [facility] Determination of erythrocyte mean corpuscular volume (MCV)Ordered By: Jennifer Gordon on 06-05-2023 MCV (RBC) [Entitic vol] 83.8 fL 81-99 [facility] Hematocrit Auto (Bld) [Volum e fraction]Ordered By: Jennifer Gordon on 06-05-2023 Hematocrit (Bld) [Volume fraction] 39.7 % 37-47 [facility] Laboratory - Chemistry and C hemistry - challengeOrdered By: Jennifer Gordon on 06-05-2023 ALP [Catalytic activity/Vol] 105 U/L 45-117 [facility] ALT [Catalytic activity/Vol] 18 U/L 13-56 [facility] CO2 [Moles/Vol] 26.0 mmol/L 21.0-32.0 [facility] Globulin (S) [Mass/Vol] 4.6 g/dL 2.2-4.2 [facility] Lipase [Catalytic activity/Vol] 69 U/L 13-75 [facility] Comment on above: Please note:LIPASE r evised reference range effective 23. New Lipase methodology. Expected to produce lower values than the previous assay method. NEW Reference Range: 13 - 75 U/L Urea nitrogen/Creatinine [Mass ratio] 12.2 mg/mg 10-20 [facility] Laboratory - Hematology and Cell countsOrdered By: Jennifer Gordon on 06-05-2023 Erythrocyte distribution width (RBC) [Entitic vol] 50.5 fL 35.1-43.9 [facility] Erythrocyte distribution width (RBC) [Ratio] 16.6 % 11.6-14.6 [facility] Immature granulocytes/100 WBC (Bld) 0.500 % 0.0-0.9 [facility] Comment on above: IG% - Immature Granu locytes (promyelocytes, myelocytes and metamyelocytes) > 1% indicates that a LEFT SHIFT is Present. MCH (RBC) [Entitic mass] 24.3 pg 27.0-32.0 [facility] Nucleated RBC/100 WBC (Bld) [Ratio] 0 % 0-5 [facility] MCHC Auto (RBC) [Mass/Vol]Or dered By: Jennifer Gordon on 06-05-2023 MCHC (RBC) [Mass/Vol] 29.0 g/dL 32-36 [facility] No Panel InformationOrdered By: Jennifer Gordon on 06-05-2023 Endomysial IgA Antibody Negative Negative [facility] Estimated GFR (MDRD) Amer 36 mL/min >60 [facility] Comment on above: GFR Calc Estimated GFR (MDRD) Non-Af Amer 30 mL/min >60 [facility] Comment on above: Non- GFR Calc Thyroid Stimulating Hormone (TSH) 0.12 uIU/mL 0.358-3.74 [facility] Vitamin D 25-Hydroxy 42.0 ng/mL [facility] Comment on above: Vitamin D 25(OH) Sta tus Range Deficiency <20 ng/mL (50nmol/L) Insufficiency 20 - 30 ng/mL (50 - 75 nmol/L) Sufficiency 30 - 100 ng/mL (75 - 250 nmol/L) Toxicity >100 ng/mL (>250 nmol/L) Platelets bldOrdered By: Amadou Gordon on 06-05-2023 Platelets (Bld) [#/Vol] 370 10*3/uL 150-450 [facility] Serum IgA measurement (units /volume)Ordered By: Jennifer Gordon on 06-05-2023 IgA Qn (S) 135 mg/dL 87-352 [facility] Comment on above: Performed at: [address] [id number] Director: Myron Kennedy PhD, Phone: [phone] Serum or plasma albumin marivel urement (mass/volume)Ordered By: Jennifer Gordon on 06-05-2023 Albumin [Mass/Vol] 3.5 g/dL 3.2-5.0 [facility] Serum or plasma albumin/glob ulin mass ratioOrdered By: Jennifer Gordon on 06-05-2023 Albumin/Globulin [Mass ratio] 0.8 {ratio} 0.9-2.4 [facility] Serum or plasma calcium marivel urement (mass/volume)Ordered By: Jennifer Gordon on 06-05-2023 Calcium [Mass/Vol] 9.1 mg/dL 8.5-10.1 [facility] Serum or plasma cholesterol in HDL measurement (mass/volume)Ordered By: Jennifer Gordon on 06-05-2023 Cholesterol in HDL [Mass/Vol] 40 mg/dL >40 [facility] Comment on above: The drugs N-Acetylcy steine and Metamizole may falsely depress this assay. Reference Range HDL <40 mg/dL Low HDL Cholesterol HDL >or= 60 mg/dL High HDL Cholesterol Serum or plasma cholesterol in VLDL measurement (mass/volume)Ordered By: Jennifer Gordon on 06-05-2023 Cholesterol in VLDL [Mass/Vol] 48 mg/dL 5-40 [facility] Serum or plasma creatinine m easurement (mass/volume)Ordered By: Jennifer Gordon on 06-05-2023 Creatinine [Mass/Vol] 1.80 mg/dL 0.55-1.02 [facility] Comment on above: The validity of the calculated GFR & GFRAA in patients over 70 years has not been determined. Clinical correlation is essential. Serum or plasma low density lipoprotein (LDL) cholesterol measurement (mass/volume)Ordered By: Jennifer Gordon on 06-05-2023 Cholesterol in LDL [Mass/Vol] 132 mg/dL 0-130 [facility] Serum or plasma urea nitroge n measurement (mass/volume)Ordered By: Jennifer Gordon on 06-05-2023 Urea nitrogen [Mass/Vol] 22 mg/dL 7-18 [facility] Serum tissue transglutaminas e IgA antibody assay (units/volume)Ordered By: Jennifer Gordon on 06-05-2023 tTG IgA Qn (S) <2 U/mL 0-3 [facility] Comment on above: Negative 0 - 3 Weak Positive 4 - 10 Positive >10 Tissue Transglutaminase (tTG) has been identified as the endomysial antigen. Studies have demonstr- ated that endomysial IgA antibodies have over 99% specificity for gluten sensitive enteropathy. Thin prep Papanicolaou smear with manual screeningOrdered By: Jennifer Gordon on 06-05-2023 Thin prep Papanicolaou smear with manual screening 17 U/L 15-37 [facility] Thin prep Papanicolaou smear with manual screening 6 5-15 [facility] ACYLCARNITINES, QUANTITATIVE , BLOOD SPOT FILTER PAPERon 02-15-2023 3-Hydroxyisovalerylcarn itine (C5-OH) (DBS) [Moles/Vol] 0.12 umol/L NINF - 0.40 umol/L [facility] Acylcarnitine pattern [Interp] Interpretation: [facility] Comment on above: Clinical correlation suggested. Mild elevation in isovalerylcarnitine (C5), can be seen in isovaleric acidemia. Otherwise unremarkable profile. Adipoylcarnitine (C6-DC) (DBS) [Moles/Vol] <0.01 NINF - 0.10 umol/L [facility] C0 (DBS) [Moles/Vol] 19.70 umol/L 15.0 - 55.0 umol/L [facility] C10 (DBS) [Moles/Vol] 0.09 umol/L NINF - 0.25 umol/L [facility] C10:1 (DBS) [Moles/Vol] <0.08 NINF - 0.50 umol/L [facility] C10:2 (DBS) [Moles/Vol] <0.04 NINF - 0.28 umol/L [facility] C12 (DBS) [Moles/Vol] 0.14 umol/L High NINF - 0.13 umol/L [facility] C12:1 (DBS) [Moles/Vol] 0.03 umol/L NINF - 0.19 umol/L [facility] C14 (DBS) [Moles/Vol] 0.17 umol/L High NINF - 0.15 umol/L [facility] C14-OH (DBS) [Moles/Vol] 0.02 umol/L NINF - 0.13 umol/L [facility] C14:1 (DBS) [Moles/Vol] 0.05 umol/L NINF - 0.21 umol/L [facility] C14:2 (DBS) [Moles/Vol] 0.02 umol/L NINF - 0.12 umol/L [facility] C16 (DBS) [Moles/Vol] 1.25 umol/L NINF - 1.73 umol/L [facility] C16-OH (DBS) [Moles/Vol] 0.02 umol/L NINF - 0.10 umol/L [facility] C16:1 (DBS) [Moles/Vol] 0.12 umol/L NINF - 0.19 umol/L [facility] C16:1-OH (DBS) [Moles/Vol] 0.11 umol/L High NINF - 0.11 umol/L [facility] C18 (DBS) [Moles/Vol] 0.46 umol/L NINF - 1.19 umol/L [facility] C18-OH (DBS) [Moles/Vol] 0.02 umol/L NINF - 0.04 umol/L [facility] C18:1 (DBS) [Moles/Vol] 0.87 umol/L 0.24 - 2.64 umol/L [facility] C18:1-OH (DBS) [Moles/Vol] <0.07 NINF - 0.07 umol/L [facility] C18:2 (DBS) [Moles/Vol] 0.25 umol/L NINF - 1.00 umol/L [facility] C18:2-OH (DBS) [Moles/Vol] <0.03 NINF - 0.15 umol/L [facility] C2 (DBS) [Moles/Vol] 10.45 umol/L 2.77 - 30.47 umol/L [facility] C3 (DBS) [Moles/Vol] 1.63 umol/L NINF - 2.35 umol/L [facility] C3-DC (DBS) [Moles/Vol] <0.04 NINF - 0.15 umol/L [facility] C4-DC (DBS) [Moles/Vol] 0.28 umol/L NINF - 0.84 umol/L [facility] C4-OH (DBS) [Moles/Vol] 0.03 umol/L NINF - 0.21 umol/L [facility] C5-DC (DBS) [Moles/Vol] 0.03 umol/L NINF - 0.11 umol/L [facility] C6 (DBS) [Moles/Vol] 0.05 umol/L NINF - 0.16 umol/L [facility] C8 (DBS) [Moles/Vol] 0.05 umol/L NINF - 0.14 umol/L [facility] C8:1 (DBS) [Moles/Vol] 0.08 umol/L NINF - 0.35 umol/L [facility] Interpretation and review of laboratory results Abnormal [facility] Isobutyrylcarnitine (C4) (DBS) [Moles/Vol] 0.21 umol/L NINF - 0.50 umol/L [facility] Isovalerylcarnitine+Met hylbutyrylcarnitine (C5) (DBS) [Moles/Vol] 0.44 umol/L High NINF - 0.28 umol/L [facility] Service comment 02 (Unsp spec) [Interp] This test was developed and its performance characteristics determined by [facility]. It has not been cleared or approved by the FDA. The laboratory is regulated under CLIA as qualified to perform high complexity testing. This test is used for clinical purposes. It should not be regarded as investigational or for research. [facility] Tiglylcarnitine (C5:1) (DBS) [Moles/Vol] 0.01 umol/L NINF - 0.50 umol/L [facility] Acylcarnitine panelon 2022 3-Hydroxyisovalerylcarn itine (C5-OH) [Moles/Vol] Test ordered in error based on source collected. Appropriate test code has been ordered. NINF - 0.20 umol/L [facility] Comment on above: PER SAMPLE RECVD REO RDERED FPACP SEE 3-Hydroxytetradecenoylc arnitine (C14:1-OH) [Moles/Vol] Test ordered in error based on source collected. Appropriate test code has been ordered. NINF - 0.13 umol/L [facility] Comment on above: PER SAMPLE RECVD REO RDERED FPACP SEE Acylcarnitine pattern [Interp] Test ordered in error based on source collected. Appropriate test code has been ordered. [facility] Comment on above: PER SAMPLE RECVD REO RDERED FPACP SEE Adipoylcarnitine (C6-DC) [Moles/Vol] Test ordered in error based on source collected. Appropriate test code has been ordered. NINF - 0.13 umol/L [facility] Comment on above: PER SAMPLE RECVD REO RDERED FPACP SEE C0 [Moles/Vol] Test ordered in erro r based on source collected. Appropriate test code has been ordered. 22 - 52 umol/L [facility] Comment on above: PER SAMPLE RECVD REO RDERED FPACP SEE C10 [Moles/Vol] Test ordered in erro r based on source collected. Appropriate test code has been ordered. NINF - 1.05 umol/L [facility] Comment on above: PER SAMPLE RECVD REO RDERED FPACP SEE C10:1 [Moles/Vol] Test ordered in erro r based on source collected. Appropriate test code has been ordered. NINF - 0.53 umol/L [facility] Comment on above: PER SAMPLE RECVD REO RDERED FPACP SEE C10:2 [Moles/Vol] Test ordered in erro r based on source collected. Appropriate test code has been ordered. NINF - 0.30 umol/L [facility] Comment on above: PER SAMPLE RECVD REO RDERED FPACP SEE C12 [Moles/Vol] Test ordered in erro r based on source collected. Appropriate test code has been ordered. NINF - 0.34 umol/L [facility] Comment on above: PER SAMPLE RECVD REO RDERED FP[facility] SEE C12-OH [Moles/Vol] Test ordered in erro r based on source collected. Appropriate test code has been ordered. NINF - 0.09 umol/L [facility] Comment on above: PER SAMPLE RECVD REO RDERED FP[facility] SEE C12:1 [Moles/Vol] Test ordered in erro r based on source collected. Appropriate test code has been ordered. NINF - 0.35 umol/L [facility] Comment on above: PER SAMPLE RECVD REO RDERED FP[facility] SEE C14 [Moles/Vol] Test ordered in erro r based on source collected. Appropriate test code has been ordered. NINF - 0.17 umol/L [facility] Comment on above: PER SAMPLE RECVD REO RDERED FP[facility] SEE C14-OH [Moles/Vol] Test ordered in erro r based on source collected. Appropriate test code has been ordered. NINF - 0.08 umol/L [facility] Comment on above: PER SAMPLE RECVD REO RDERED FP[facility] SEE C14:1 [Moles/Vol] Test ordered in erro r based on source collected. Appropriate test code has been ordered. NINF - 0.32 umol/L [facility] Comment on above: PER SAMPLE RECVD REO RDERED FP[facility] SEE C14:2 [Moles/Vol] Test ordered in erro r based on source collected. Appropriate test code has been ordered. NINF - 0.22 umol/L [facility] Comment on above: PER SAMPLE RECVD REO RDERED FP[facility] SEE C16 [Moles/Vol] Test ordered in erro r based on source collected. Appropriate test code has been ordered. NINF - 0.29 umol/L [facility] Comment on above: PER SAMPLE RECVD REO RDERED FP[facility] SEE C16-OH [Moles/Vol] Test ordered in erro r based on source collected. Appropriate test code has been ordered. NINF - 0.06 umol/L [facility] Comment on above: PER SAMPLE RECVD REO RDERED FP[facility] SEE C16:1 [Moles/Vol] Test ordered in erro r based on source collected. Appropriate test code has been ordered. NINF - 0.10 umol/L [facility] Comment on above: PER SAMPLE RECVD REO RDERED FP[facility] SEE C16:1-OH [Moles/Vol] Test ordered in err or based on source collected. Appropriate test code has been ordered. NINF - 0.07 umol/L [facility] Comment on above: PER SAMPLE RECVD REO RDERED FP[facility] SEE C18 [Moles/Vol] Test ordered in erro r based on source collected. Appropriate test code has been ordered. NINF - 0.17 umol/L [facility] Comment on above: PER SAMPLE RECVD REO RDERED FP[facility] SEE C18-OH [Moles/Vol] Test ordered in erro r based on source collected. Appropriate test code has been ordered. NINF - 0.07 umol/L [facility] Comment on above: PER SAMPLE RECVD REO RDERED FP[facility] SEE C18:1 [Moles/Vol] Test ordered in erro r based on source collected. Appropriate test code has been ordered. NINF - 0.43 umol/L [facility] Comment on above: PER SAMPLE RECVD REO RDERED FP[facility] SEE C18:1-OH [Moles/Vol] Test ordered in err or based on source collected. Appropriate test code has been ordered. NINF - 0.10 umol/L [facility] Comment on above: PER SAMPLE RECVD REO RDERED FP[facility] SEE C18:2 [Moles/Vol] Test ordered in erro r based on source collected. Appropriate test code has been ordered. NINF - 0.26 umol/L [facility] Comment on above: PER SAMPLE RECVD REO RDERED FP[facility] SEE C18:2-OH [Moles/Vol] Test ordered in err or based on source collected. Appropriate test code has been ordered. NINF - 0.11 umol/L [facility] Comment on above: PER SAMPLE RECVD REO RDERED FP[facility] SEE C2 [Moles/Vol] Test ordered in erro r based on source collected. Appropriate test code has been ordered. 2.84 - 25.30 umol/L [facility] Comment on above: PER SAMPLE RECVD REO RDERED FP[facility] SEE C3 [Moles/Vol] Test ordered in erro r based on source collected. Appropriate test code has been ordered. NINF - 1.00 umol/L [facility] Comment on above: PER SAMPLE RECVD REO RDERED FP[facility] SEE C3-DC [Moles/Vol] Test ordered in erro r based on source collected. Appropriate test code has been ordered. NINF - 0.14 umol/L [facility] Comment on above: PER SAMPLE RECVD REO RDERED FP[facility] SEE C4-DC [Moles/Vol] Test ordered in erro r based on source collected. Appropriate test code has been ordered. NINF - 0.25 umol/L [facility] Comment on above: PER SAMPLE RECVD REO RDERED FP[facility] SEE C4-OH [Moles/Vol] Test ordered in erro r based on source collected. Appropriate test code has been ordered. NINF - 0.40 umol/L [facility] Comment on above: PER SAMPLE RECVD REO RDERED FP[facility] SEE C5-DC [Moles/Vol] Test ordered in erro r based on source collected. Appropriate test code has been ordered. NINF - 0.18 umol/L [facility] Comment on above: PER SAMPLE RECVD REO RDERED FP[facility] SEE C6 [Moles/Vol] Test ordered in erro r based on source collected. Appropriate test code has been ordered. NINF - 0.42 umol/L [facility] Comment on above: PER SAMPLE RECVD REO RDERED FP[facility] SEE C6-OH [Moles/Vol] Test ordered in erro r based on source collected. Appropriate test code has been ordered. NINF - 0.20 umol/L [facility] Comment on above: PER SAMPLE RECVD REO RDERED FPACP SEE C8 [Moles/Vol] Test ordered in erro r based on source collected. Appropriate test code has been ordered. NINF - 1.00 umol/L [facility] Comment on above: PER SAMPLE RECVD REO RDERED FPACP SEE C8-DC [Moles/Vol] Test ordered in erro r based on source collected. Appropriate test code has been ordered. NINF - 0.10 umol/L [facility] Comment on above: PER SAMPLE RECVD REO RDERED FP[facility] SEE C8:1 [Moles/Vol] Test ordered in erro r based on source collected. Appropriate test code has been ordered. NINF - 0.97 umol/L [facility] Comment on above: PER SAMPLE RECVD REO RDERED FP[facility] SEE Carnitine [Moles/Vol] Test ordered in er ror based on source collected. Appropriate test code has been ordered. 27 - 66 umol/L [facility] Comment on above: PER SAMPLE RECVD REO RDERED FP[facility] SEE Isobutyrylcarnitine (C4) [Moles/Vol] Test ordered in error based on source collected. Appropriate test code has been ordered. NINF - 1.01 umol/L [facility] Comment on above: PER SAMPLE RECVD REO RDERED FP[facility] SEE Isovalerylcarnitine+Met hylbutyrylcarnitine (C5) [Moles/Vol] Test ordered in error based on source collected. Appropriate test code has been ordered. NINF - 0.65 umol/L [facility] Comment on above: PER SAMPLE RECVD REO RDERED FP[facility] SEE Service comment 02 (Unsp spec) [Interp] Test ordered in error based on source collected. Appropriate test code has been ordered. [facility] Comment on above: PER SAMPLE RECVD REO RDERED FP[facility] SEE CORRECTED on 02/14 AT 0956: Result was previously reported as: This test was developed and its performance characteristics determined by [facility]. It has not been cleared or approved by the FDA. The laboratory is regulated under CLIA as qualified to perform high complexity testing. This test is used for clinical purposes. It should not be regarded as investigational or for research. Tiglylcarnitine (C5:1) [Moles/Vol] Test ordered in error based on source collected. Appropriate test code has been ordered. NINF - 0.15 umol/L [facility] Comment on above: PER SAMPLE RECVD REO RDERED FPACP SEE [facility] Albumin Elph [Mass/Vol]Order ed By: Dr. Dozier on 02-07-2023 Albumin [Mass/Vol] 3.7 g/dL 2.9-4.4 [facility] Basophil percentageOrdered B y: Dr. Dozier on 02-07-2023 Basophil percentage Comment . [facility] Comment on above: Bence Davila Protein positive; kappa type.Performed at: [address] [id number] Director: Myron Kennedy PhD, Phone: [phone] Chloride [Moles/Vol] 103 mmol/L 98-107 [facility] Glucose [Mass/Vol] 107 mg/dL 74-106 [facility] Comment on above: Fasting Glucose resu lt from 100 to 125 mg/dL suggests IMPAIRED HOMEOSTASIS per A.D.A. criteria. Potassium [Moles/Vol] 5.1 mmol/L 3.5-5.1 [facility] Sodium [Moles/Vol] 134 mmol/L 136-145 [facility] Interpretation of serum or p lasma protein pattern by immunofixation (narrative resultOrdered By: Dr. Dozier on 02-07-2023 Protein Fractions Immunofixation Jamison [Interp] See comment [facility] Comment on above: Result: Not Observed Laboratory - Chemistry and C hemistry - challengeOrdered By: Dr. Dozier on 02-07-2023 CO2 [Moles/Vol] 26.0 mmol/L 21.0-32.0 [facility] Urea nitrogen/Creatinine [Mass ratio] 14.0 mg/mg 10-20 [facility] No Panel InformationOrdered By: Dr. Dozier on 02-07-2023 Addendum Document Comment . [facility] Comment on above: Protein electrophore sis scan will follow via computer,mail, or rn hemodialysis charge delivery. Estimated GFR (MDRD) Amer 37 mL/min >60 [facility] Comment on above: GFR Calc Estimated GFR (MDRD) Non-Af Amer 30 mL/min >60 [facility] Comment on above: Non- GFR Calc Free Lambda Light Chains, Quant 46.9 mg/L 5.7-26.3 [facility] Serum [id number] measu rement by electrophoresisOrdered By: Dr. Dozier on 02-07-2023 Alpha 1 globulin Elph [Mass/Vol] 0.3 g/dL 0.0-0.4 [facility] Alpha 1 globulin Elph [Mass/Vol] 1.1 g/dL 0.4-1.0 [facility] Serum globulin measurement ( mass/volume)Ordered By: Dr. Dozier on 02-07-2023 Globulin (S) [Mass/Vol] 4.2 g/dL 2.2-3.9 [facility] Serum immunoglobulin kappa l ight chains/immunoglobulin lambda light chains mass ratioOrdered By: Dr. Dozier on 02-07-2023 Immunoglobulin light chains.kappa/Immunoglob ulin light chains.lambda (S) [Mass ratio] 1.34 0.26-1.65 [facility] Serum or plasma IgA measurem ent (mass/volume)Ordered By: Dr. Dozier on 02-07-2023 IgA [Mass/Vol] 119 mg/dL 87-352 [facility] Serum or plasma IgG measurem ent (mass/volume)Ordered By: Dr. Dozier on 02-07-2023 IgG [Mass/Vol] 1604 mg/dL [phone] [facility] Serum or plasma IgM measurem ent (mass/volume)Ordered By: Dr. Dozier on 02-07-2023 IgM [Mass/Vol] 58 mg/dL 26-217 [facility] Serum or plasma beta globuli n measurement by electrophoresis (mass/volume)Ordered By: Dr. Dozier on 02-07-2023 Beta globulin Elph [Mass/Vol] 1.2 g/dL 0.7-1.3 [facility] Serum or plasma calcitriol m easurement (mass/volume)Ordered By: Dr. Dozier on 02-07-2023 1,25-dihydroxyvitamin D3 [Mass/Vol] 17.1 pg/mL 24.8-81.5 [facility] Comment on above: Performed at: - [address] [id number] Director: Braulio Rubio MD, Phone: [phone] Serum or plasma calcium marivel urement (mass/volume)Ordered By: Dr. Dozier on 02-07-2023 Calcium [Mass/Vol] 9.5 mg/dL 8.5-10.1 [facility] Serum or plasma creatinine m easurement (mass/volume)Ordered By: Dr. Dozier on 02-07-2023 Creatinine [Mass/Vol] 1.78 mg/dL 0.55-1.02 [facility] Comment on above: The validity of the calculated GFR & GFRAA in patients over 70 years has not been determined. Clinical correlation is essential. Serum or plasma gamma globul in measurement by electrophoresis (mass/volume)Ordered By: Dr. Dozier on 02-07-2023 Gamma globulin Elph [Mass/Vol] 1.6 g/dL 0.4-1.8 [facility] Serum or plasma immunoelectr ophoresis interpretation (nominal result)Ordered By: Dr. Dozier on 02-07-2023 Interpretation IEP [Interp] Comment . [facility] Comment on above: No monoclonality det ected. Serum or plasma immunoglobul in kappa light chains measurement (mass/volume)Ordered By: Dr. Dozier on 02-07-2023 Immunoglobulin light chains.kappa [Mass/Vol] 62.9 mg/L 3.3-19.4 [facility] Serum or plasma urea nitroge n measurement (mass/volume)Ordered By: Dr. Dozier on 02-07-2023 Urea nitrogen [Mass/Vol] 25 mg/dL 7-18 [facility] Thin prep Papanicolaou smear with manual screeningOrdered By: Dr. Dozier on 02-07-2023 Thin prep Papanicolaou smear with manual screening 5 5-15 [facility] Thin prep Papanicolaou smear with manual screening 0.9 0.7-1.7 [facility] Total protein bloodOrdered B y: Dr. Dozier on 02-07-2023 Protein [Mass/Vol] 7.9 g/dL 6.0-8.5 [facility] Basophil percentageOrdered B y: Dr. Dozier on 12-07-2022 Basophil percentage Comment: . [facility] Comment on above: Presence of monoclon al protein is unclear at this time. Suggestrepeat in 3 to 6 months if clinically indicated.Performed at: [place] [facility] [id number] Director: Myron Kennedy PhD, Phone: [phone] Basophil percentageon 2022 Basophil percentage 3.6 mg/dL 2.5-4.9 [facility] Chloride [Moles/Vol] 97 mmol/L 98-107 [facility] Glucose [Mass/Vol] 120 mg/dL 74-106 [facility] Comment on above: Fasting Glucose resu lt from 100 to 125 mg/dL suggests IMPAIRED HOMEOSTASIS per A.D.A. criteria. Potassium [Moles/Vol] 4.6 mmol/L 3.5-5.1 [facility] Sodium [Moles/Vol] 134 mmol/L 136-145 [facility] Bilirubin Test strip Ql (U)o n 12-07-2022 Bilirubin Ql (U) Negative Negative [facility] Ketones Test strip Ql (U)on 12-07-2022 Ketones Ql (U) Negative Negative [facility] Laboratory - Chemistry and C hemistry - challengeon 12-07-2022 CO2 [Moles/Vol] 28.0 mmol/L 21.0-32.0 [facility] Urea nitrogen/Creatinine [Mass ratio] 12.2 mg/mg 10-20 [facility] Nitrite Test strip Ql (U)on 12-07-2022 Nitrite Ql (U) Negative Negative [facility] No Panel Informationon 12-07 Estimated GFR (MDRD) Amer 46 mL/min >60 [facility] Comment on above: GFR Calc Estimated GFR (MDRD) Non-Af Amer 38 mL/min >60 [facility] Comment on above: Non- GFR Calc Protein Test strip Ql (U)on 12-07-2022 Protein Ql (U) 15 mg/dl Negative [facility] Serum or plasma albumin marivel urement (mass/volume)on 12-07-2022 Albumin [Mass/Vol] 3.3 g/dL 3.2-5.0 [facility] Serum or plasma calcium marivel urement (mass/volume)on 12-07-2022 Calcium [Mass/Vol] 9.4 mg/dL 8.5-10.1 [facility] Serum or plasma creatinine m easurement (mass/volume)on 12-07-2022 Creatinine [Mass/Vol] 1.48 mg/dL 0.55-1.02 [facility] Comment on above: The validity of the calculated GFR & GFRAA in patients over 70 years has not been determined. Clinical correlation is essential. Serum or plasma urea nitroge n measurement (mass/volume)on 12-07-2022 Urea nitrogen [Mass/Vol] 18 mg/dL 7-18 [facility] Urine blood detectionon RBC Ql (U) Negative Negative [facility] Urine clarityon 12-07-2022 Clarity (U) Clear Clear [facility] Urine color determinationon 12-07-2022 Color (U) Yellow Yellow [facility] Urine creatinine measurement (mass/volume)on 12-07-2022 Creatinine (U) [Mass/Vol] 43.10 mg/dL NO RANGE EST. [facility] Urine glucose detectionon Glucose Ql (U) Normal mg/dl Normal [facility] Urine leukocyte esterase det ection by dipstickon 12-07-2022 Leukocyte esterase Test strip Ql (U) Negative Negative [facility] Urine pHon 12-07-2022 pH (U) 7.0 [pH] 5.0 - 8.0 [facility] Urine protein measurement (m ass/volume)on 12-07-2022 Protein (U) [Mass/Vol] 13.8 mg/dL 0.0-11.8 [facility] Urine protein/creatinine mas s ratioon 12-07-2022 Protein/Creatinine (U) [Mass ratio] 320 mg/g CRE 0-200 [facility] Urine specific gravity measu rementon 12-07-2022 Specific gravity (U) [Rel density] 1.010 1.002-1.030 [facility] Urobilinogen Auto test strip Ql (U)on 12-07-2022 Urobilinogen Ql (U) Normal mg/dl Normal [facility] Albumin Elph [Mass/Vol]Order ed By: Dr. Dozier on 12-01-2022 Albumin [Mass/Vol] 3.5 g/dL 2.9-4.4 [facility] Basophil percentageOrdered B y: Dr. Dozier on 12-01-2022 Chloride [Moles/Vol] 89 mmol/L 98-107 [facility] Glucose [Mass/Vol] 109 mg/dL 74-106 [facility] Comment on above: Fasting Glucose resu lt from 100 to 125 mg/dL suggests IMPAIRED HOMEOSTASIS per A.D.A. criteria. Potassium [Moles/Vol] 3.5 mmol/L 3.5-5.1 [facility] Sodium [Moles/Vol] 125 mmol/L 136-145 [facility] Interpretation of serum or p lasma protein pattern by immunofixation (narrative resultOrdered By: Dr. Dozier on 12-01-2022 Protein Fractions Immunofixation Ajmison [Interp] See comment [facility] Comment on above: NOT OBSERVED Iron measurement (mass/mass) Ordered By: Dr. Dozier on 12-01-2022 Iron (Unsp spec) [Mass/Mass] 19 ug/dL 50-170 [facility] Laboratory - Chemistry and C hemistry - challengeOrdered By: Dr. Dozier on 12-01-2022 CO2 [Moles/Vol] 22.0 mmol/L 21.0-32.0 [facility] Urea nitrogen/Creatinine [Mass ratio] 13.1 mg/mg 10-20 [facility] No Panel InformationOrdered By: Dr. Dozier on 12-01-2022 Addendum Document Comment . [facility] Comment on above: Protein electrophore sis scan will follow via computer,mail, or rn hemodialysis charge delivery.Performed at: [facility] Director: Myron Kennedy PhD, Phone: [phone] Estimated GFR (MDRD) Amer 25 mL/min >60 [facility] Comment on above: GFR Calc Estimated GFR (MDRD) Non-Af Amer 21 mL/min >60 [facility] Comment on above: Non- GFR Calc Serum [id number] measu rement by electrophoresisOrdered By: Dr. Dozier on 12-01-2022 Alpha 1 globulin Elph [Mass/Vol] 0.3 g/dL 0.0-0.4 [facility] Alpha 1 globulin Elph [Mass/Vol] 1.1 g/dL 0.4-1.0 [facility] Serum globulin measurement ( mass/volume)Ordered By: Dr. Dozier on 12-01-2022 Globulin (S) [Mass/Vol] 3.5 g/dL 2.2-3.9 [facility] Serum or plasma IgA measurem ent (mass/volume)Ordered By: Dr. Dozier on 12-01-2022 IgA [Mass/Vol] 107 mg/dL 87-352 [facility] Serum or plasma IgG measurem ent (mass/volume)Ordered By: Dr. Dozier on 12-01-2022 IgG [Mass/Vol] 1343 mg/dL [phone] [facility] Serum or plasma IgM measurem ent (mass/volume)Ordered By: Dr. Dozier on 12-01-2022 IgM [Mass/Vol] 42 mg/dL 26-217 [facility] Serum or plasma beta globuli n measurement by electrophoresis (mass/volume)Ordered By: Dr. Dozier on 12-01-2022 Beta globulin Elph [Mass/Vol] 1.0 g/dL 0.7-1.3 [facility] Serum or plasma calcitriol m easurement (mass/volume)Ordered By: Dr. Dozier on 12-01-2022 1,25-dihydroxyvitamin D3 [Mass/Vol] 32.2 pg/mL 24.8-81.5 [facility] Comment on above: Performed at: [employer] [facility] [employer] [address] [id number] Director: Braulio Rubio MD, Phone: [phone] Serum or plasma calcium marivel urement (mass/volume)Ordered By: Dr. Dozier on 12-01-2022 Calcium [Mass/Vol] 8.9 mg/dL 8.5-10.1 [facility] Serum or plasma creatinine m easurement (mass/volume)Ordered By: Dr. Dozier on 12-01-2022 Creatinine [Mass/Vol] 2.51 mg/dL 0.55-1.02 [facility] Comment on above: The validity of the calculated GFR & GFRAA in patients over 70 years has not been determined. Clinical correlation is essential. Serum or plasma ferritin josé miguel surement (mass/volume)Ordered By: Dr. Dozier on 12-01-2022 Ferritin [Mass/Vol] 70 ng/mL 8-252 [facility] Serum or plasma gamma globul in measurement by electrophoresis (mass/volume)Ordered By: Dr. Dozier on 12-01-2022 Gamma globulin Elph [Mass/Vol] 1.2 g/dL 0.4-1.8 [facility] Serum or plasma immunoelectr ophoresis interpretation (nominal result)Ordered By: Dr. Dozier on 12-01-2022 Interpretation IEP [Interp] Comment: . [facility] Comment on above: Presence of monoclon al protein is unclear at this time. Suggestrepeat in 3 to 6 months if clinically indicated. Serum or plasma urea nitroge n measurement (mass/volume)Ordered By: Dr. Dozier on 12-01-2022 Urea nitrogen [Mass/Vol] 33 mg/dL 7-18 [facility] Thin prep Papanicolaou smear with manual screeningOrdered By: Dr. Dozier on 12-01-2022 Thin prep Papanicolaou smear with manual screening 14 5-15 [facility] Thin prep Papanicolaou smear with manual screening 1.1 0.7-1.7 [facility] Total protein bloodOrdered B y: Dr. Dozier on 12-01-2022 Protein [Mass/Vol] 7.0 g/dL 6.0-8.5 [facility] Absolute lymphocyte countOrd ered By: Dr. Dozier on 10-06-2022 Lymphocytes Auto (Unsp spec) [#/Vol] 2.62 10*3/uL 0.83-4.51 [facility] Basophil percentageOrdered B y: Dr. Dozier on 10-06-2022 Basophils/100 WBC (Bld) 0.9 % 0-1 [facility] Bilirubin [Mass/Vol] 0.20 mg/dL 0.20-1.00 [facility] Comment on above: For patients on eltr ombopag therapy, use of Dimension [place] TBIL is not recommended. Chloride [Moles/Vol] 101 mmol/L 98-107 [facility] Eosinophils/100 WBC (Bld) 2.2 % 0-5 [facility] Glucose [Mass/Vol] 96 mg/dL 74-106 [facility] Neutrophils (Bld) [#/Vol] 7.5 10*3/uL 2.0-7.7 [facility] Neutrophils/100 WBC (Bld) 66.2 % 47-70 [facility] Potassium [Moles/Vol] 5.4 mmol/L 3.5-5.1 [facility] Protein [Mass/Vol] 8.2 g/dL 6.4-8.2 [facility] Sodium [Moles/Vol] 135 mmol/L 136-145 [facility] WBC (Bld) [#/Vol] 11.3 10*3/uL 4.4-11.0 [facility] Blood erythrocytes count (nu mber/volume)Ordered By: Dr. Dozier on 10-06-2022 RBC (Bld) [#/Vol] 4.86 10*6/uL 4.2-5.4 [facility] Blood hemoglobin measurement (mass/volume)Ordered By: Dr. Dozier on 10-06-2022 Hemoglobin (Bld) [Mass/Vol] 11.5 g/dL 12.0-15.0 [facility] Blood lymphocytes/100 leukoc ytesOrdered By: Dr. Dozier on 10-06-2022 Lymphocytes/100 WBC (Bld) 23.2 % 19-41 [facility] Blood monocytes/100 leukocyt esOrdered By: Dr. Dozier on 10-06-2022 Monocytes/100 WBC (Bld) 7.3 % 0-10 [facility] Blood platelet mean volumeOr dered By: Dr. Dozier on 10-06-2022 Platelet mean volume (Bld) [Entitic vol] 10.6 fL 6.2-12.0 [facility] Determination of erythrocyte mean corpuscular volume (MCV)Ordered By: Dr. Dozier on 10-06-2022 MCV (RBC) [Entitic vol] 79.8 fL 81-99 [facility] Hematocrit Auto (Bld) [Volum e fraction]Ordered By: Dr. Dozier on 10-06-2022 Hematocrit (Bld) [Volume fraction] 38.8 % 37-47 [facility] Laboratory - Chemistry and C hemistry - challengeOrdered By: Dr. Dozier on 10-06-2022 ALP [Catalytic activity/Vol] 84 U/L 45-117 [facility] ALT [Catalytic activity/Vol] 25 U/L 13-56 [facility] CO2 [Moles/Vol] 25.0 mmol/L 21.0-32.0 [facility] Globulin (S) [Mass/Vol] 4.3 g/dL 2.2-4.2 [facility] Urea nitrogen/Creatinine [Mass ratio] 11.6 mg/mg 10-20 [facility] Laboratory - Hematology and Cell countsOrdered By: Dr. Dozier on 10-06-2022 Erythrocyte distribution width (RBC) [Entitic vol] 48.3 fL 35.1-43.9 [facility] Erythrocyte distribution width (RBC) [Ratio] 16.7 % 11.6-14.6 [facility] Immature granulocytes/100 WBC (Bld) 0.200 % 0.0-0.9 [facility] Comment on above: IG% - Immature Granu locytes (promyelocytes, myelocytes and metamyelocytes) > 1% indicates that a LEFT SHIFT is Present. MCH (RBC) [Entitic mass] 23.7 pg 27.0-32.0 [facility] Nucleated RBC/100 WBC (Bld) [Ratio] 0 % 0-5 [facility] MCHC Auto (RBC) [Mass/Vol]Or dered By: Dr. Dozier on 10-06-2022 MCHC (RBC) [Mass/Vol] 29.6 g/dL 32-36 [facility] No Panel InformationOrdered By: Dr. Dozier on 10-06-2022 Estimated GFR (MDRD) Amer 34 mL/min >60 [facility] Comment on above: GFR Calc Estimated GFR (MDRD) Non-Af Amer 28 mL/min >60 [facility] Comment on above: Non- GFR Calc Free Lambda Light Chains, Quant 41.7 mg/L 5.7-26.3 [facility] Thyroid Stimulating Hormone (TSH) 0.42 uIU/mL 0.358-3.74 [facility] Vitamin B12 Level > 2000 pg/mL 211-911 [facility] Whole Blood Vitamin B1 Level 146.3 nmol/L 66.5-200.0 [facility] Comment on above: Performed at: [address] [id number] Director: Myron Kennedy PhD, Phone: [phone] at: [facility] [id number] Director: Braulio Rubio MD, Phone: [phone] Platelets bldOrdered By: Dr. Dozier on 10-06-2022 Platelets (Bld) [#/Vol] 513 10*3/uL 150-450 [facility] Serum immunoglobulin kappa l ight chains/immunoglobulin lambda light chains mass ratioOrdered By: Dr. Dozier on 10-06-2022 Immunoglobulin light chains.kappa/Immunoglob ulin light chains.lambda (S) [Mass ratio] 1.34 0.26-1.65 [facility] Serum or plasma albumin marivel urement (mass/volume)Ordered By: Dr. Dozier on 10-06-2022 Albumin [Mass/Vol] 3.9 g/dL 3.2-5.0 [facility] Serum or plasma albumin/glob ulin mass ratioOrdered By: Dr. Dozier on 10-06-2022 Albumin/Globulin [Mass ratio] 0.9 {ratio} 0.9-2.4 [facility] Serum or plasma calcium marivel urement (mass/volume)Ordered By: Dr. Dozier on 10-06-2022 Calcium [Mass/Vol] 9.4 mg/dL 8.5-10.1 [facility] Serum or plasma creatinine m easurement (mass/volume)Ordered By: Dr. Dozier on 10-06-2022 Creatinine [Mass/Vol] 1.90 mg/dL 0.55-1.02 [facility] Comment on above: The validity of the calculated GFR & GFRAA in patients over 70 years has not been determined. Clinical correlation is essential. Serum or plasma folate measu rement (mass/volume)Ordered By: Dr. Dozier on 10-06-2022 Folate [Mass/Vol] 6.60 ng/mL 3.1-55.4 [facility] Serum or plasma immunoglobul in kappa light chains measurement (mass/volume)Ordered By: Dr. Dozier on 10-06-2022 Immunoglobulin light chains.kappa [Mass/Vol] 55.8 mg/L 3.3-19.4 [facility] Serum or plasma urea nitroge n measurement (mass/volume)Ordered By: Dr. Dozier on 10-06-2022 Urea nitrogen [Mass/Vol] 22 mg/dL 7-18 [facility] Thin prep Papanicolaou smear with manual screeningOrdered By: Dr. Dozier on 10-06-2022 Thin prep Papanicolaou smear with manual screening 16 U/L 15-37 [facility] Thin prep Papanicolaou smear with manual screening 9 5-15 [facility] Comprehensive metabolic 2000 panelon 07-08-2022 Albumin [Mass/Vol] 3.8 g/dL 3.2 - 5.2 g/dL [facility] ALP [Catalytic activity/Vol] 108 U/L 40 - 150 U/L [facility] ALT [Catalytic activity/Vol] 34 U/L 14 - 65 U/L [facility] Anion gap [Moles/Vol] 13 mmol/L 10 - 2 0 mmol/L [facility] AST [Catalytic activity/Vol] 28 U/L 0 - 45 U/L [facility] Bilirubin [Mass/Vol] 0.2 mg/dL 0 - 1.3 mg/dL [facility] Calcium [Mass/Vol] 8.7 mg/dL 8.4 - 10. 2 mg/dL [facility] Chloride [Moles/Vol] 99 mmol/L 98 - 10 8 mmol/L [facility] Creatinine [Mass/Vol] 1.93 mg/dL High 0.60 - 1.20 mg/dL [facility] GFR/1.73 sq M.predicted CKD-EPI (S/P/Bld) [Vol rate/Area] 29 Low - PINF [facility] Comment on above: Estimated GFR was ca lculated using the 2020 CKD-EPI creatinine equation. Glucose [Mass/Vol] 110 mg/dL High 65 - 99 mg/dL [facility] H[facility]3 [Moles/Vol] 27 mmol/L 21 - 32 mmol/L [facility] Potassium [Moles/Vol] 5.2 mmol/L High 3.5 - 5.1 mmol/L [facility] Protein [Mass/Vol] 7.8 g/dL 6 - 8 g/dL [facility] alth Sodium [Moles/Vol] 134 mmol/L Low 135 - 145 mmol/L [facility] Urea nitrogen [Mass/Vol] 27 mg/dL High 8 - 25 mg/dL [facility] Urea nitrogen/Creatinine [Mass ratio] 14.0 mg/mg 10 - 20 [facility] has implemented the eGFR calculation approach that does not have a coefficient for race that conforms to the NKF-ASN Task Force Recommendations. [facility] NT Pro BNPon 07-08-2022 Natriuretic peptide.B prohormone N-Terminal [Mass/Vol] 369 pg/mL High 0 - 300 pg/mL [facility] Natriuretic peptide.B prohor curly N-Terminal [Mass/Vol]on 07-08-2022 Pride Study Cut-offs Rule In: < /= 50 Years >450 pg/mL 51 Years - 75 Years >900 pg/mL 76 Years - 99 Years >1800 pg/mL Rule Out: All patients <300 pg/mL [facility] No Panel Informationon 07-08 Interpretation and review of laboratory results Abnormal [facility] CBC Auto Differentialon 06-07 Basophils (Bld) [#/Vol] 0.09 10*3/uL [facility] Basophils/100 WBC (Bld) 0.8 % [facility] Eosinophils (Bld) [#/Vol] 0.46 10*3/uL [facility] Eosinophils/100 WBC (Bld) 4.1 % [facility] Erythrocyte distribution width (RBC) [Entitic vol] 16.0 % High 11.6 - 14.8 % [facility] Hematocrit (Bld) [Volume fraction] 31.2 % Low 36 - 46 % [facility] Hemoglobin (Bld) [Mass/Vol] 9.1 g/dL Low 12 - 16 g/dL [facility] Immature granulocytes (Bld) [#/Vol] 0.24 10*3/uL [facility] Immature granulocytes/100 WBC (Bld) 2.10 % [facility] Comment on above: The IG parameter is the percentage of metamyelocytes, myelocytes and promyelocytes. An immature granulocyte count (IG) of 1% or more suggests the possibility of infection, an IG count of 3% is very likely related to an infection. Interpretation and review of laboratory results Abnormal [facility] Lymphocytes (Bld) [#/Vol] 2.12 10*3/uL [facility] Lymphocytes/100 WBC (Bld) 18.8 % [facility] MCH (RBC) [Entitic mass] 24.3 pg Low 26 - 34 pg [facility] MCHC (RBC) [Mass/Vol] 29.2 g/dL Low 31 - 37 g/dL [facility] MCV (RBC) [Entitic vol] 83.2 fL 80 - 100 fL [facility] Monocytes (Bld) [#/Vol] 1.08 10*3/uL High [facility] Monocytes/100 WBC (Bld) 9.6 % [facility] Neutrophils (Bld) [#/Vol] 7.26 10*3/uL High [facility] Neutrophils/100 WBC (Bld) 64.6 % [facility] Nucleated RBC (Bld) [#/Vol] 0.00 10*3/uL [facility] Nucleated RBC/100 WBC (Bld) [Ratio] 0.0 % [facility] Platelet mean volume (Bld) [Entitic vol] 9.9 fL 9.4 - 12.4 fL [facility] Platelets (Bld) [#/Vol] 423 10*3/uL High [facility] RBC (Bld) [#/Vol] 3.75 10*6/uL Low [facility]alth WBC (Bld) [#/Vol] 11.25 10*3/uL [facility] CK [Catalytic activity/Vol]o n 06-29-2022 Interpretation and review of laboratory results Abnormal [facility] CPK NO MBon 06-29-2022 CK [Catalytic activity/Vol] 698 U/L High 40 - 170 U/L [facility] Glucose (Bld) [Mass/Vol]on 0 06-29-2022 Glucose [Mass/Vol] 94 mg/dL 65 - 99 mg/dL [facility] Interpretation and review of laboratory results Normal [facility] Magnesium Levelon 06-29-2022 Magnesium [Mass/Vol] 1.8 mg/dL 1.6 - 2 .4 mg/dL [facility] Magnesium [Mass/Vol]on 06-29 Interpretation and review of laboratory results Normal [facility] Renal function 2000 panelon 06-29-2022 Albumin [Mass/Vol] 2.9 g/dL Low 3.2 - 5.2 g/dL [facility] Anion gap [Moles/Vol] 13 mmol/L 10 - 2 0 mmol/L [facility] Calcium [Mass/Vol] 8.0 mg/dL Low 8.4 - 10. 2 mg/dL [facility] Chloride [Moles/Vol] 106 mmol/L 98 - 10 8 mmol/L [facility] Creatinine [Mass/Vol] 1.85 mg/dL High 0.60 - 1.20 mg/dL [facility] GFR/1.73 sq M.predicted CKD-EPI (S/P/Bld) [Vol rate/Area] 30 Low - PINF [facility] Comment on above: Estimated GFR was ca lculated using the 2020 CKD-EPI creatinine equation. Glucose [Mass/Vol] 91 mg/dL 65 - 99 mg/dL [facility] HCO3 [Moles/Vol] 25 mmol/L 21 - 32 mmol/L [facility] Interpretation and review of laboratory results Abnormal [facility] Phosphate [Mass/Vol] 5.4 mg/dL High 2.8 - 4 .1 mg/dL [facility] Potassium [Moles/Vol] 5.1 mmol/L 3.5 - 5.1 mmol/L [facility] Sodium [Moles/Vol] 139 mmol/L 135 - 145 mmol/L [facility] Urea nitrogen [Mass/Vol] 26 mg/dL High 8 - 25 mg/dL [facility] Urea nitrogen/Creatinine [Mass ratio] 14.1 mg/mg - [facility] has implemented the eGFR calculation approach that does not have a coefficient for race that conforms to the NKF-ASN Task Force Recommendations. [facility] CBC Auto Differentialon 06-07 Basophils (Bld) [#/Vol] 0.06 10*3/uL [facility] Basophils/100 WBC (Bld) 0.5 % [facility] Eosinophils (Bld) [#/Vol] 0.09 10*3/uL [facility] Eosinophils/100 WBC (Bld) 0.8 % [facility] Erythrocyte distribution width (RBC) [Entitic vol] 15.9 % High 11.6 - 14.8 % [facility] Hematocrit (Bld) [Volume fraction] 29.0 % Low 36 - 46 % [facility] Hemoglobin (Bld) [Mass/Vol] 8.9 g/dL Low 12 - 16 g/dL [facility] Immature granulocytes (Bld) [#/Vol] 0.31 10*3/uL High [facility] Immature granulocytes/100 WBC (Bld) 2.60 % [facility] Comment on above: The IG parameter is the percentage of metamyelocytes, myelocytes and promyelocytes. An immature granulocyte count (IG) of 1% or more suggests the possibility of infection, an IG count of 3% is very likely related to an infection. Interpretation and review of laboratory results Abnormal [facility] Lymphocytes (Bld) [#/Vol] 1.98 10*3/uL [facility] Lymphocytes/100 WBC (Bld) 16.8 % [facility] MCH (RBC) [Entitic mass] 24.5 pg Low 26 - 34 pg [facility] MCHC (RBC) [Mass/Vol] 30.7 g/dL Low 31 - 37 g/dL [facility] MCV (RBC) [Entitic vol] 79.9 fL Low 80 - 100 fL [facility] Monocytes (Bld) [#/Vol] 0.99 10*3/uL High [facility] Monocytes/100 WBC (Bld) 8.4 % [facility] Neutrophils (Bld) [#/Vol] 8.39 10*3/uL High [facility] Neutrophils/100 WBC (Bld) 70.9 % [facility] Nucleated RBC (Bld) [#/Vol] 0.00 10*3/uL [facility] Nucleated RBC/100 WBC (Bld) [Ratio] 0.0 % [facility] Platelet mean volume (Bld) [Entitic vol] 9.3 fL Low 9.4 - 12.4 fL [facility] Platelets (Bld) [#/Vol] 406 10*3/uL High [facility] RBC (Bld) [#/Vol] 3.63 10*6/uL Low [facility] ealth WBC (Bld) [#/Vol] 11.82 10*3/uL [facility] CK [Catalytic activity/Vol]o n 06-28-2022 Interpretation and review of laboratory results Abnormal [facility] CPK NO MBon 06-28-2022 CK [Catalytic activity/Vol] 1164 U/L High 40 - 170 U/L [facility] Glucose (Bld) [Mass/Vol]on 0 06-28-2022 Glucose [Mass/Vol] 118 mg/dL High 65 - 99 mg/dL [facility] Interpretation and review of laboratory results Abnormal [facility] Glucose [Mass/Vol] 99 mg/dL 65 - 99 mg/dL [facility] Interpretation and review of laboratory results Normal [facility] Glucose [Mass/Vol] 82 mg/dL 65 - 99 mg/dL [facility] Interpretation and review of laboratory results Normal [facility] Glucose [Mass/Vol] 83 mg/dL 65 - 99 mg/dL [facility] Interpretation and review of laboratory results Normal [facility] Hepatic function 2000 panelo n 06-28-2022 Albumin [Mass/Vol] 2.8 g/dL Low 3.2 - 5.2 g/dL [facility] ALP [Catalytic activity/Vol] 82 U/L 40 - 150 U/L [facility] ALT [Catalytic activity/Vol] 97 U/L High 14 - 65 U/L [facility] AST [Catalytic activity/Vol] 64 U/L High 0 - 45 U/L [facility] Bilirubin [Mass/Vol] 0.2 mg/dL 0 - 1.3 mg/dL [facility] Bilirubin.conjugated [Mass/Vol] mg/dL 0 - 0.4 mg/dL [facility] Interpretation and review of laboratory results Abnormal [facility] Protein [Mass/Vol] 6.1 g/dL 6 - 8 g/dL [facility] Iron Study with Ferritinon 0 06-28-2022 Ferritin [Mass/Vol] 46 ng/mL 13 - 150 ng/mL [facility] Interpretation and review of laboratory results Abnormal [facility] Iron [Mass/Vol] 40 ug/dL [facility] Iron binding capacity [Mass/Vol] 255 [facility] Iron saturation [Mass fraction] 16 % Low 20 - 50 % [facility] Lipaseon 06-28-2022 Lipase [Catalytic activity/Vol] 228 U/L 73 - 393 U/L [facility] Lipase [Catalytic activity/V ol]on 06-28-2022 Interpretation and review of laboratory results Normal [facility] Magnesium Levelon 06-28-2022 Magnesium [Mass/Vol] 1.4 mg/dL Low 1.6 - 2 .4 mg/dL [facility] Magnesium [Mass/Vol]on 06-28 Interpretation and review of laboratory results Abnormal [facility] Renal function 2000 panelon 06-28-2022 Albumin [Mass/Vol] 2.9 g/dL Low 3.2 - 5.2 g/dL [facility] Anion gap [Moles/Vol] 12 mmol/L 10 - 2 0 mmol/L [facility] Calcium [Mass/Vol] 8.0 mg/dL Low 8.4 - 10. 2 mg/dL [facility] Chloride [Moles/Vol] 104 mmol/L 98 - 10 8 mmol/L [facility] Creatinine [Mass/Vol] 1.85 mg/dL High 0.60 - 1.20 mg/dL [facility] GFR/1.73 sq M.predicted CKD-EPI (S/P/Bld) [Vol rate/Area] 30 Low - PINF [facility] Comment on above: Estimated GFR was ca lculated using the 2020 CKD-EPI creatinine equation. Glucose [Mass/Vol] 92 mg/dL 65 - 99 mg/dL [facility] HCO3 [Moles/Vol] 27 mmol/L 21 - 32 mmol/L [facility] Interpretation and review of laboratory results Abnormal [facility] Phosphate [Mass/Vol] 5.2 mg/dL High 2.8 - 4 .1 mg/dL [facility] Potassium [Moles/Vol] 4.7 mmol/L 3.5 - 5.1 mmol/L [facility] Sodium [Moles/Vol] 138 mmol/L 135 - 145 mmol/L [facility] Urea nitrogen [Mass/Vol] 29 mg/dL High 8 - 25 mg/dL [facility] Urea nitrogen/Creatinine [Mass ratio] 15.7 mg/mg 10 - 20 [facility] has implemented the eGFR calculation approach that does not have a coefficient for race that conforms to the NKF-ASN Task Force Recommendations. [facility] Tissue Transglutaminase, IgA on 06-28-2022 Interpretation and review of laboratory results Normal [facility] Tissue Transglutaminase, IgA [facility] Comment on above: Reference Ranges: <20 CU Negative 20-30 CU Weak Positive >30 CU Positive The following results were obtained with the [employer] Flash h-tTG IgA chemiluminescent immunoassay. Values obtained with different manufacturers' assay methods may not be used interchangeably. [facility] CBC Auto Differentialon 06-07 Basophils (Bld) [#/Vol] 0.04 10*3/uL [facility] Basophils/100 WBC (Bld) 0.3 % [facility] Eosinophils (Bld) [#/Vol] 0.01 10*3/uL [facility] Eosinophils/100 WBC (Bld) 0.1 % [facility] Erythrocyte distribution width (RBC) [Entitic vol] 15.8 % High 11.6 - 14.8 % [facility] Hematocrit (Bld) [Volume fraction] 29.5 % Low 36 - 46 % [facility] Hemoglobin (Bld) [Mass/Vol] 9.0 g/dL Low 12 - 16 g/dL [facility] Immature granulocytes (Bld) [#/Vol] 0.17 10*3/uL [facility] Immature granulocytes/100 WBC (Bld) 1.30 % [facility] Comment on above: The IG parameter is the percentage of metamyelocytes, myelocytes and promyelocytes. An immature granulocyte count (IG) of 1% or more suggests the possibility of infection, an IG count of 3% is very likely related to an infection. Interpretation and review of laboratory results Abnormal [facility] Lymphocytes (Bld) [#/Vol] 1.07 10*3/uL [facility] Lymphocytes/100 WBC (Bld) 8.3 % [facility] MCH (RBC) [Entitic mass] 24.1 pg Low 26 - 34 pg [facility] MCHC (RBC) [Mass/Vol] 30.5 g/dL Low 31 - 37 g/dL [facility] MCV (RBC) [Entitic vol] 79.1 fL Low 80 - 100 fL [facility] Monocytes (Bld) [#/Vol] 0.94 10*3/uL High [facility] Monocytes/100 WBC (Bld) 7.3 % [facility] Neutrophils (Bld) [#/Vol] 10.63 10*3/uL [facility] Neutrophils/100 WBC (Bld) 82.7 % [facility] Nucleated RBC (Bld) [#/Vol] 0.00 10*3/uL [facility] Nucleated RBC/100 WBC (Bld) [Ratio] 0.0 % [facility] Platelet mean volume (Bld) [Entitic vol] 9.7 fL 9.4 - 12.4 fL [facility] Platelets (Bld) [#/Vol] 379 10*3/uL [facility] RBC (Bld) [#/Vol] 3.73 10*6/uL Low [facility]alth WBC (Bld) [#/Vol] 12.86 10*3/uL [facility] CK [Catalytic activity/Vol]o n 06-27-2022 Interpretation and review of laboratory results Abnormal [facility] CPK NO MBon 06-27-2022 CK [Catalytic activity/Vol] 918 U/L High 40 - 170 U/L [facility] Glucose (Bld) [Mass/Vol]on 0 06-27-2022 Glucose [Mass/Vol] 126 mg/dL High 65 - 99 mg/dL [facility] Interpretation and review of laboratory results Abnormal [facility] Glucose [Mass/Vol] 162 mg/dL High 65 - 99 mg/dL [facility] Interpretation and review of laboratory results Abnormal [facility] Glucose [Mass/Vol] 112 mg/dL High 65 - 99 mg/dL [facility] Interpretation and review of laboratory results Abnormal [facility] Magnesium Levelon 06-27-2022 Magnesium [Mass/Vol] 1.6 mg/dL 1.6 - 2 .4 mg/dL [facility] Magnesium [Mass/Vol]on 06-27 Interpretation and review of laboratory results Normal [facility] Renal function 2000 panelon 06-27-2022 Albumin [Mass/Vol] 3.0 g/dL Low 3.2 - 5.2 g/dL [facility] Anion gap [Moles/Vol] 11 mmol/L 10 - 2 0 mmol/L [facility] Calcium [Mass/Vol] 8.6 mg/dL 8.4 - 10. 2 mg/dL [facility] Chloride [Moles/Vol] 101 mmol/L 98 - 10 8 mmol/L [facility] Creatinine [Mass/Vol] 1.85 mg/dL High 0.60 - 1.20 mg/dL [facility] GFR/1.73 sq M.predicted CKD-EPI (S/P/Bld) [Vol rate/Area] 30 Low - PINF [facility] Comment on above: Estimated GFR was ca lculated using the 2020 CKD-EPI creatinine equation. Glucose [Mass/Vol] 104 mg/dL High 65 - 99 mg/dL [facility] HCO3 [Moles/Vol] 27 mmol/L 21 - 32 mmol/L [facility] Interpretation and review of laboratory results Abnormal [facility] Phosphate [Mass/Vol] 3.7 mg/dL 2.8 - 4 .1 mg/dL [facility] Potassium [Moles/Vol] 4.4 mmol/L 3.5 - 5.1 mmol/L [facility] Sodium [Moles/Vol] 135 mmol/L 135 - 145 mmol/L [facility] Urea nitrogen [Mass/Vol] 28 mg/dL High 8 - 25 mg/dL [facility] Urea nitrogen/Creatinine [Mass ratio] 15.1 mg/mg 10 - 20 [facility] has implemented the eGFR calculation approach that does not have a coefficient for race that conforms to the NKF-ASN Task Force Recommendations. [facility] Bacteria identified Cx Nom ( Bld)on 06-26-2022 Interpretation and review of laboratory results Normal [facility] CBC Auto Differentialon 06-07 Basophils (Bld) [#/Vol] 0.06 10*3/uL [facility] Basophils/100 WBC (Bld) 0.6 % [facility] Eosinophils (Bld) [#/Vol] 0.24 10*3/uL [facility] Eosinophils/100 WBC (Bld) 2.4 % [facility] Erythrocyte distribution width (RBC) [Entitic vol] 15.8 % High 11.6 - 14.8 % [facility] Hematocrit (Bld) [Volume fraction] 31.1 % Low 36 - 46 % [facility] Hemoglobin (Bld) [Mass/Vol] 9.6 g/dL Low 12 - 16 g/dL [facility] Immature granulocytes (Bld) [#/Vol] 0.11 10*3/uL [facility] Immature granulocytes/100 WBC (Bld) 1.10 % [facility] Comment on above: The IG parameter is the percentage of metamyelocytes, myelocytes and promyelocytes. An immature granulocyte count (IG) of 1% or more suggests the possibility of infection, an IG count of 3% is very likely related to an infection. Interpretation and review of laboratory results Abnormal [facility] Lymphocytes (Bld) [#/Vol] 1.22 10*3/uL [facility] Lymphocytes/100 WBC (Bld) 12.2 % [facility] MCH (RBC) [Entitic mass] 24.6 pg Low 26 - 34 pg [facility] MCHC (RBC) [Mass/Vol] 30.9 g/dL Low 31 - 37 g/dL [facility] MCV (RBC) [Entitic vol] 79.7 fL Low 80 - 100 fL [facility] Monocytes (Bld) [#/Vol] 0.84 10*3/uL [facility] Monocytes/100 WBC (Bld) 8.4 % [facility] Neutrophils (Bld) [#/Vol] 7.57 10*3/uL High [facility] Neutrophils/100 WBC (Bld) 75.3 % [facility] Nucleated RBC (Bld) [#/Vol] 0.00 10*3/uL [facility] Nucleated RBC/100 WBC (Bld) [Ratio] 0.0 % [facility] Platelet mean volume (Bld) [Entitic vol] 9.8 fL 9.4 - 12.4 fL [facility] Platelets (Bld) [#/Vol] 400 10*3/uL [facility] RBC (Bld) [#/Vol] 3.90 10*6/uL Low [facility] ealt WBC (Bld) [#/Vol] 9.89 10*3/uL [facility] [Catalytic activity/Vol]o n 06-26-2022 Interpretation and review of laboratory results Abnormal [facility] CPK NO MBon 06-26-2022 CK [Catalytic activity/Vol] 1703 U/L High 40 - 170 U/L [facility] Glucose (Bld) [Mass/Vol]on 0 06-26-2022 Glucose [Mass/Vol] 225 mg/dL High 65 - 99 mg/dL [facility] Interpretation and review of laboratory results Abnormal [facility] Glucose [Mass/Vol] 134 mg/dL High 65 - 99 mg/dL [facility] oHeal Interpretation and review of laboratory results Abnormal [facility] Glucose [Mass/Vol] 121 mg/dL High 65 - 99 mg/dL [facility] oHeal Interpretation and review of laboratory results Abnormal [facility] Glucose [Mass/Vol] 109 mg/dL High 65 - 99 mg/dL [facility] Interpretation and review of laboratory results Abnormal [facility] Laboratory - Microbiology an d Antimicrobial susceptibilityon 06-26-2022 Bacteria identified Cx Nom (Bld) No Growth After 5 Days [facility] h Magnesium Levelon 06-26-2022 Magnesium [Mass/Vol] 1.6 mg/dL 1.6 - 2 .4 mg/dL [facility] Magnesium [Mass/Vol]on 06-26 Interpretation and review of laboratory results Normal [facility] Renal function 2000 panelon 06-26-2022 Albumin [Mass/Vol] 3.0 g/dL Low 3.2 - 5.2 g/dL [facility] Anion gap [Moles/Vol] 13 mmol/L 10 - 2 0 mmol/L [facility] Calcium [Mass/Vol] 8.6 mg/dL 8.4 - 10. 2 mg/dL [facility] Chloride [Moles/Vol] 102 mmol/L 98 - 10 8 mmol/L [facility] Creatinine [Mass/Vol] 1.87 mg/dL High 0.60 - 1.20 mg/dL [facility] GFR/1.73 sq M.predicted CKD-EPI (S/P/Bld) [Vol rate/Area] 30 Low - PINF [facility] Comment on above: Estimated GFR was ca lculated using the 2020 CKD-EPI creatinine equation. Glucose [Mass/Vol] 105 mg/dL High 65 - 99 mg/dL [facility] H[facility]3 [Moles/Vol] 26 mmol/L 21 - 32 mmol/L [facility] Interpretation and review of laboratory results Abnormal [facility] Phosphate [Mass/Vol] 4.5 mg/dL High 2.8 - 4 .1 mg/dL [facility] Potassium [Moles/Vol] 4.6 mmol/L 3.5 - 5.1 mmol/L [facility] Sodium [Moles/Vol] 136 mmol/L 135 - 145 mmol/L [facility] Urea nitrogen [Mass/Vol] 23 mg/dL 8 - 25 mg/dL [facility] Urea nitrogen/Creatinine [Mass ratio] 12.3 mg/mg 10 - 20 [facility] has implemented the eGFR calculation approach that does not have a coefficient for race that conforms to the NKF-ASN Task Force Recommendations. [facility] XR Chest 1 Viewon 06-26-2022 No acute cardiopulmonary abnormality. [facility]/ Workstation ID: [id number] [place] RIS EXAMINATION: XR CHEST PA/AP 06/25/2022 1:41 pm HISTORY: ORDERING SYSTEM PROVIDED HISTORY: increasing shortness of air, TECHNOLOGIST PROVIDED HISTORY: Illness/Other Reason for exam: increasing shortness of air Cancer History: unknown Surgery, RadiationHistory: cholecystectomy, hysterectomy, oophrectomy Encounter Type: Initial Additional signs and symptoms: ORDERING SYSTEM PROVIDED DIAGNOSIS CODES: N17.9 Acute renal failure superimposed on chronic kidney disease, unspecified CKD stage, unspecified acute renal failure type (HCC) N18.9 Acute renal failure superimposed on chronic kidney disease, unspecified CKD stage, unspecified acute renal failure type (HCC) R19.7 Diarrhea, unspecified type E87.5 Hyperkalemia J44.9 Chronic obstructive pulmonary disease, unspecified COPD type (HCC) K62.5 Rectal bleeding K62.3 Rectal prolapse COMPARISON: Chest x-ray 06/24/2022. FINDINGS: Single frontal view of the chest was obtained. Cardiomediastinal silhouette is within normal limits. Lungs demonstrate no focal airspace consolidation. Calcified nodules primarily in the upper right lung appears similar to prior. No pneumothorax or pleural effusion. Visualized portions of the upper abdomen are unremarkable. No acute osseous abnormalities. [place] [place] [facility] - 06/26/2022 EXAMINATION: XR CHEST PA/AP 06/25/2022 1:41 pm HISTORY: ORDERING SYSTEM PROVIDED HISTORY: increasing shortness of air, TECHNOLOGIST PROVIDED HISTORY: Illness/Other Reason for exam: increasing shortness of air Cancer History: unknown Surgery, RadiationHistory: cholecystectomy, hysterectomy, oophrectomy Encounter Type: Initial Additional signs and symptoms: ORDERING SYSTEM PROVIDED DIAGNOSIS CODES: N17.9 Acute renal failure superimposed on chronic kidney disease, unspecified CKD stage, unspecified acute renal failure type (HCC) N18.9 Acute renal failure superimposed on chronic kidney disease, unspecified CKD stage, unspecified acute renal failure type (HCC) R19.7 Diarrhea, unspecified type E87.5 Hyperkalemia J44.9 Chronic obstructive pulmonary disease, unspecified COPD type (HCC) K62.5 Rectal bleeding K62.3 Rectal prolapse COMPARISON: Chest x-ray 06/24/2022. FINDINGS: Single frontal view of the chest was obtained. Cardiomediastinal silhouette is within normal limits. Lungs demonstrate no focal airspace consolidation. Calcified nodules primarily in the upper right lung appears similar to prior. No pneumothorax or pleural effusion. Visualized portions of the upper abdomen are unremarkable. No acute osseous abnormalities. IMPRESSION: No acute cardiopulmonary abnormality. [facility]/ Workstation ID: [id number] [facility] XR Chest 1 ViewOrdered By: Virgil Dial on 06-26-2022 [facility] Work Phone: CBC Auto Differentialon 06-07 Basophils (Bld) [#/Vol] 0.05 10*3/uL [facility] Basophils/100 WBC (Bld) 0.6 % [facility] Eosinophils (Bld) [#/Vol] 0.18 10*3/uL [facility] Eosinophils/100 WBC (Bld) 2.3 % [facility] Erythrocyte distribution width (RBC) [Entitic vol] 15.5 % High 11.6 - 14.8 % [facility] Hematocrit (Bld) [Volume fraction] 28.6 % Low 36 - 46 % [facility] Hemoglobin (Bld) [Mass/Vol] 8.6 g/dL Low 12 - 16 g/dL [facility] Immature granulocytes (Bld) [#/Vol] 0.04 10*3/uL [facility] Immature granulocytes/100 WBC (Bld) 0.50 % [facility] Comment on above: The IG parameter is the percentage of metamyelocytes, myelocytes and promyelocytes. An immature granulocyte count (IG) of 1% or more suggests the possibility of infection, an IG count of 3% is very likely related to an infection. Interpretation and review of laboratory results Abnormal [facility] Lymphocytes (Bld) [#/Vol] 0.99 10*3/uL [facility] Lymphocytes/100 WBC (Bld) 12.7 % [facility] MCH (RBC) [Entitic mass] 24.3 pg Low 26 - 34 pg [facility] MCHC (RBC) [Mass/Vol] 30.1 g/dL Low 31 - 37 g/dL [facility] MCV (RBC) [Entitic vol] 80.8 fL 80 - 100 fL [facility] Monocytes (Bld) [#/Vol] 0.57 10*3/uL [facility] Monocytes/100 WBC (Bld) 7.3 % [facility] Neutrophils (Bld) [#/Vol] 5.94 10*3/uL [facility] Neutrophils/100 WBC (Bld) 76.6 % [facility] Nucleated RBC (Bld) [#/Vol] 0.00 10*3/uL [facility] Nucleated RBC/100 WBC (Bld) [Ratio] 0.0 % [facility] Platelet mean volume (Bld) [Entitic vol] 9.4 fL 9.4 - 12.4 fL [facility] Platelets (Bld) [#/Vol] 279 10*3/uL [facility] RBC (Bld) [#/Vol] 3.54 10*6/uL Low [facility] ealth WBC (Bld) [#/Vol] 7.77 10*3/uL [facility] CK [Catalytic activity/Vol]o n 06-25-2022 Interpretation and review of laboratory results Abnormal [facility] COVID-19, MolecularOrdered B y: Katina Cortés on 06-25-2022 SARS-CoV-2 (COVID-19) RNA CATRINA+probe Ql (Resp) Not detected Not Detected [facility] CPK NO MBon 08-20-2022 CK [Catalytic activity/Vol] 4769 U/L High 40 - 170 U/L [facility] ECG 12 Leadon 06-25-2022 Atrial Rate 85 BPM [facility] P [place] 75 degrees [facility] P-R Interval 152 ms [facility] Q-T Interval 356 ms [facility] QRS Duration 88 ms [facility] QTC Calculation (Bezet) 423 ms [facility] [place] 37 degrees [facility] T [place] 52 degrees [facility] Ventricular Rate 85 BPM [facility] Normal sinus rhythm Normal ECG Confirmed by Jean-Pierre Middleton MD ([id number]) on 06/25/2022 12:32:18 PM MUSE [facility] Glucose (Bld) [Mass/Vol]on 0 06-25-2022 Glucose [Mass/Vol] 119 mg/dL High 65 - 99 mg/dL [facility] Interpretation and review of laboratory results Abnormal [facility] Glucose [Mass/Vol] 98 mg/dL 65 - 99 mg/dL [facility] Interpretation and review of laboratory results Normal [facility] Glucose [Mass/Vol] 119 mg/dL High 65 - 99 mg/dL [facility] Interpretation and review of laboratory results Abnormal [facility] Glucose [Mass/Vol] 107 mg/dL High 65 - 99 mg/dL [facility] Interpretation and review of laboratory results Abnormal [facility] Magnesium Levelon 06-25-2022 Magnesium [Mass/Vol] 1.5 mg/dL Low 1.6 - 2 .4 mg/dL [facility] No Panel Informationon 06-25 Interpretation and review of laboratory results Abnormal [facility] Renal function 2000 panelon 06-25-2022 Albumin [Mass/Vol] 2.7 g/dL Low 3.2 - 5.2 g/dL [facility] Anion gap [Moles/Vol] 15 mmol/L 10 - 2 0 mmol/L [facility] Calcium [Mass/Vol] 8.6 mg/dL 8.4 - 10. 2 mg/dL [facility] Chloride [Moles/Vol] 106 mmol/L 98 - 10 8 mmol/L [facility] Creatinine [Mass/Vol] 2.05 mg/dL High 0.60 - 1.20 mg/dL [facility] GFR/1.73 sq M.predicted CKD-EPI (S/P/Bld) [Vol rate/Area] 27 Low - PINF [facility] Comment on above: Estimated GFR was ca lculated using the 2020 CKD-EPI creatinine equation. Glucose [Mass/Vol] 94 mg/dL 65 - 99 mg/dL [facility] H[facility]3 [Moles/Vol] 23 mmol/L 21 - 32 mmol/L [facility] Phosphate [Mass/Vol] 4.4 mg/dL High 2.8 - 4 .1 mg/dL [facility] Potassium [Moles/Vol] 5.1 mmol/L 3.5 - 5.1 mmol/L [facility] Sodium [Moles/Vol] 139 mmol/L 135 - 145 mmol/L [facility] Urea nitrogen [Mass/Vol] 28 mg/dL High 8 - 25 mg/dL [facility] Urea nitrogen/Creatinine [Mass ratio] 13.7 mg/mg 10 - 20 [facility] has implemented the eGFR calculation approach that does not have a coefficient for race that conforms to the NKF-ASN Task Force Recommendations. [facility] SARS-CoV-2 (COVID-19) RNA NA A+probe Ql (Resp)Ordered By: Katina Cortés on 06-25-2022 Interpretation and review of laboratory results Normal [facility] This test was perfor med under the FDA's Emergency Use Authorization (EUA). Testing was performed using the Caroline SARS-CoV-2 RT-PCR Test on the [employer] System. This test has not been approved for use in asymptomatic patients and its performance in this patient population has not been evaluated. Negative results do not rule out the presence of SARS-CoV-2. Fact sheets for the EUA can be found at the following links: For Healthcare Providers: https://www.fda.gov/med ia/616824/download For Patients: https://www.fda.gov/med ia/984708/download [facility] XR Chest 1 Viewon 06-25-2022 Radiology Study observation (narrative) [place] Auto Differential[place] 06-06 Basophils (Bld) [#/Vol] 0.03 10*3/uL [facility] Basophils/100 WBC (Bld) 0.4 % [facility] Eosinophils (Bld) [#/Vol] 0.12 10*3/uL [facility] Eosinophils/100 WBC (Bld) 1.6 % [facility] Erythrocyte distribution width (RBC) [Entitic vol] 15.3 % High 11.6 - 14.8 % [facility] Hematocrit (Bld) [Volume fraction] 29.6 % Low 36 - 46 % [facility] Hemoglobin (Bld) [Mass/Vol] 8.6 g/dL Low 12 - 16 g/dL [facility] Immature granulocytes (Bld) [#/Vol] 0.04 10*3/uL [facility] Immature granulocytes/100 WBC (Bld) 0.50 % [facility] Comment on above: The IG parameter is the percentage of metamyelocytes, myelocytes and promyelocytes. An immature granulocyte count (IG) of 1% or more suggests the possibility of infection, an IG count of 3% is very likely related to an infection. Interpretation and review of laboratory results Abnormal [facility] Lymphocytes (Bld) [#/Vol] 0.86 10*3/uL Low [facility] Lymphocytes/100 WBC (Bld) 11.4 % [facility] MCH (RBC) [Entitic mass] 24.2 pg Low 26 - 34 pg [facility] MCHC (RBC) [Mass/Vol] 29.1 g/dL Low 31 - 37 g/dL [facility] MCV (RBC) [Entitic vol] 83.4 fL 80 - 100 fL [facility] Monocytes (Bld) [#/Vol] 0.56 10*3/uL [facility] Monocytes/100 WBC (Bld) 7.4 % [facility] Neutrophils (Bld) [#/Vol] 5.93 10*3/uL [facility] Neutrophils/100 WBC (Bld) 78.7 % [facility] Nucleated RBC (Bld) [#/Vol] 0.00 10*3/uL [facility] Nucleated RBC/100 WBC (Bld) [Ratio] 0.0 % [facility] Platelet mean volume (Bld) [Entitic vol] 9.4 fL 9.4 - 12.4 fL [facility] Platelets (Bld) [#/Vol] 281 10*3/uL [facility] RBC (Bld) [#/Vol] 3.55 10*6/uL Low [facility] eah WBC (Bld) [#/Vol] 7.54 10*3/uL [facility] CK [Catalytic activity/Vol]o n 06-24-2022 Interpretation and review of laboratory results Abnormal [facility] CPK NO MBon 06-24-2022 CK [Catalytic activity/Vol] 89613 U/L High 40 - 170 U/L [facility] Glucose (Bld) [Mass/Vol]on 0 06-24-2022 Glucose [Mass/Vol] 100 mg/dL High 65 - 99 mg/dL [facility] Interpretation and review of laboratory results Abnormal [facility] Glucose [Mass/Vol] 82 mg/dL 65 - 99 mg/dL [facility] Interpretation and review of laboratory results Normal [facility] Glucose [Mass/Vol] 96 mg/dL 65 - 99 mg/dL [facility] Interpretation and review of laboratory results Normal [facility] Glucose [Mass/Vol] 91 mg/dL 65 - 99 mg/dL [facility] Interpretation and review of laboratory results Normal [facility] Magnesium Levelon 06-24-2022 Magnesium [Mass/Vol] 1.7 mg/dL 1.6 - 2 .4 mg/dL [facility] Magnesium [Mass/Vol]on 06-24 Interpretation and review of laboratory results Normal [facility] Renal function 2000 panelon 06-24-2022 Albumin [Mass/Vol] 2.7 g/dL Low 3.2 - 5.2 g/dL [facility] Anion gap [Moles/Vol] 13 mmol/L 10 - 2 0 mmol/L [facility] Calcium [Mass/Vol] 8.5 mg/dL 8.4 - 10. 2 mg/dL [facility] Chloride [Moles/Vol] 107 mmol/L 98 - 10 8 mmol/L [facility] Creatinine [Mass/Vol] 2.48 mg/dL High 0.60 - 1.20 mg/dL [facility] GFR/1.73 sq M.predicted CKD-EPI (S/P/Bld) [Vol rate/Area] 21 Low - PINF [facility] Comment on above: Estimated GFR was ca lculated using the 2020 CKD-EPI creatinine equation. Glucose [Mass/Vol] 80 mg/dL 65 - 99 mg/dL [facility] HCO3 [Moles/Vol] 21 mmol/L 21 - 32 mmol/L [facility] Interpretation and review of laboratory results Abnormal [facility] Phosphate [Mass/Vol] 4.6 mg/dL High 2.8 - 4 .1 mg/dL [facility] Potassium [Moles/Vol] 5.3 mmol/L High 3.5 - 5.1 mmol/L [facility] Sodium [Moles/Vol] 136 mmol/L 135 - 145 mmol/L [facility] Urea nitrogen [Mass/Vol] 34 mg/dL High 8 - 25 mg/dL [facility] Urea nitrogen/Creatinine [Mass ratio] 13.7 mg/mg 10 - 20 [facility] has implemented the eGFR calculation approach that does not have a coefficient for race that conforms to the NKF-ASN Task Force Recommendations. [facility] Tissue ExamOrdered By: Marco A garcia on 06-24-2022 Case Report Surgical Pathology Report Case: [id number] Authorizing Provider: Tyshawn Santos, Collected: 06/23/2022 12:36 PM MD Ordering Location: [facility] Received: 06/23/2022 01:21 PM Endoscopy Pathologist: Marco A Romero DO Specimens: A) - Colon, Sigmoid Colon B) - Rectum [facility] Work Phone: Pathology report final diagnosis Narrative k3khjSZdFISwoUClMXOoLUh xemLgPJIcyZLbA9RyvoiySL sqKR5pIE4qlQkhjQZwlSOtV VGvJiTns0vzx446yOEfi3vl TMAHjykcmSl2rTcfY62rf3H 8WacvC2ygMLAjLQxwDBMvCK ryxJGgZQy4OHUmaRFlugIsV cNmDMXvxTJdtFS0ITClQY4j vzqoJHtdAJuyWMOubnA2JRB bkCPzM5ExNOKsGG7tgcbpWP V3HTjiFDZhCKU7BtLwENGfk 4Fdekn1JtBgyZMhHJunqSIb cefhKPCjWsHzBE9bKVzgvd8 5AAS4q3ebrMAeIAqoBvcsbZ ZjdpG8EGsIIRLERGdLXaLmS B4vHEfJK8AWBFxVClbzJJA6 FAighAQ8l9ngzNHxm5p8GJt gVPJ2lACacW9rHFS6MZOhMA let7lxJHAnLNnkp9TaWPmHI QSENG6PBX6mlRG9SPaHWAER D5kPvAG4VVUerTE8j2wldML au1f1SZfwLEL7bOWyZ18lkL P8KAGlQGufg7myJHXwUKbtx 9QsSXnXLMOOQY5RDR4uhAN6 KWmEHZCBYKqoXIK5DElipWu mRdrvbvKotZRyQtOupS7deH awaQ7ocRCsvAUvjTzlESTvL tPnCOR2ZHTbCOtzl0pjFPBl CGbai6NkBLoWNGCKDB0PPJ3 reDI7QGkCMOEFI9bAqWU8OA J0hSJ7i1niiPPmq5n9ISveD MK3fFKtt6LbyDtrBzthhHP8 POafPlkvhR8cfLZSKRLEIei VAwddddIjYU5SGTEGYG3ZkF Q7ESW8gZR9v5pkaRYzt1n4I SjyTVY8hTudoBUnvoxsqh27 PIG4FEDsHrJcMFO0o9iwxMY nDEajQllggHDolnW5GRsRQK UGTEbEKrCjYY3aSLpDL9INE jI3XcGhUYA6AOiisDbzPiua qaJwuPDvPfGoyQ5mqQzgjO7 cYlxmczIwXHBhclxsaTcyMF fafG42GpPmUxTqD51ih75zO hXjqQVhx4Trl6s5iA49hJOh kSStxn6yzBroCIDngo4jaIU siTN2EfztSDZuuLzvKKphpe IlqDVqUSOnBo4yCHpmtb39W NZ5y1xafLUrKXmfLmjgxALt nlT9AQrQSUGSHSuDHsDrGT8 nJEeJN2XHSLxFMmbwSBV1AW k6wAY4x4jimFYar0p0QCcvV QV7zJVfwP4iXZM4LWGyLPqo f1rbSNKoAUhuw7VaWYtEUVV ZKC7JKU2lpJB6PEuJJHWQB3 dVoAQ5XMKgwNL7j9frdZYsn 2f3LZorPIT9fVEoG7K3zIdw BmczbUH6HOlbDknopT9umJO NNPFCDphMQapbasHqKF7MXJ FSZI8WnGE0IJUerGB8e7fwb YFzr5w3GGauYGD4dNhuoMSb snfsqa82JVV0NCMfUlXsZPC fHXmhXtmxvPY6USdrJmaszM 5zdCBIWVBFUkxJTksgbmFtZ Y6HPOJXQwWVPL00KpT5NOo2 Oy39FQHeHEKsjAJsRLenT39 2CixwvJS6a2xmkUSyHMceOp njdXXqwsC0KSvZTDOYJXnAX yTjEM9iQKqKE8IPFeG1BkM2 QLo5Bs84BLVqOUUzhPMiHAu jC752DIOuHRhtEMCdf2YsE6 TlHawujfVvQHt8XFNuDWdyr 6hyNHQgZOkzo8MiPZsEASYM FV0OPS4agUK5INcBKTTYOQy ePUQ4SLz0fLU5l2mnxENbz1 o5VHalPWJ8rFrcxUOipaxxK GZzMjBccGFyXGxpNzIwXGxp bfhyJEa2qILmcHfpNZLvBnB eP5NsNHYzY6YiCPSzzMw5LQ Jve1rupIzvMQVeDUAvxj72F E2snQQoURZysnahYU4nbPI1 OBNWZUR9iFPdkiQjJiJrpFO mjdhtdBG7QQKcHTEzq7LoKF TlmiSghXT2XYUyKQ3fAYLzN RAqWYumHX9gTCH2bZZdsqJp WH4eNPT6j2FfDLRzKA4ySQB oZSBkaWZmZXJlbnRpYWwgZG blM59pn3maDAotN0u4DEHjT UtkUsHqsPbhcyvjBZT3QOIz FOBnmiKcVQAqCZQ9tM9xAOO nWXOmz7VxTR3tKI4aiALcGP KsF57ZSaIAAHJBT76HWQXHR QRUN0WUT1pKJYH8WoG7aKI2 DqWgXiExEbbjCyQ8KKD5Xa8 4PiW6JMZ6oOG6PS5rPZW4FN a5USB8AFe0BWJ5OqD1STLtq IX0KH0vZIGyCFg9RKPdF72H IgCMDARXI29GHMHEXHQPA9G CCIMKLZcFZ4IYEV4GFHIVXE CTCO9GCWuQZoTDUPjRL9QTV O7WTSUHEALMGO3LUeQvFWvJ M1IWI3gBEZHkGJONVPMQGJX vWsACSG6rVFi0DKQwLQH6nc bgLLZ6DJo9Bln4JETor1vnn aobXBL8RCs5S4g0KAFstULn tM2ulCL4ExG5IBbkgZPge4S NjBYlhLF6BkXrIJHctMYle8 BCE33dd344KuP4GBEciQEfu 9AJVwo6j6VfrLqyThU5MFO3 QP5pMYnSB9UCW3zOLXBySHG SGIIZJDZuOW0TFZpASO4QLC ZyETSYMBKVAYWqMkFZBA8xT WxTSK5IVUJcSQFMNALMCKKm NT5ZQAFIKT2VBTPHSFZHH48 XFOOKSBLLM5FYE7aHVPYLFG GGJxSYSqUACS4NTSSHTXPLJ E4PGrE2 [facility] Work Phone: Pathology report gross observation Narrative a9datILtUZCzcMAhMMDtPZk yzxJuSOFdzDOmP7XqpcqsWJ hjPK3hUF5xpMdjrDIatZVgQ FLyZrBgx7jxf943qXEmj2zk YDSAovlavVb6aRnnJ28jf0V 2MglpW2riIEJkHCqwIQRrRB eglFOlGEy5QRWehOSaggXbI pFsJHHvwDAwmNV8SICvPB0k ybwmAXoxFDaaAZHhprV3BXV gpIWkJ2MfXQWoJW3feinbJL A8HBteAQPnNJT0DtQnCQEaf 7Cablq0WwDwvFr6i8uaIIVl CCRqqDfvg2imFYY4RXEysWV eC0wibU1dIRTuBG2ulxsvq9 hkIMztOCiaVFMovKS8vyK3O OSvuOQnK8ZiaE4gKDWfYPAw heHxbSvbaX4wHzHdDQlgIsL uUI7yVSRcFXUJAKRqjFLsGR OycxJer5AwXYiyohkwTIOql YxySVKoEGCxNPQBk8hrbglo F2wtpS0cAUCBq4rzmwNVaS4 mc9xiAGVqtBAvmORekJnpWj agtUI8OPddJseyoB0orVRWX YOVIkySYmloqqGrDO4BSLQS ZjWPDW75RbWqJQB4BWnqoHj zEsaqxbPnhERpNbOnwA3dnp CtM2xwWjakrDQ3OEqmFczyg P3crORNISPYVimTEnnrbvSg SO7RKWJVLH8HbNN0HGEbzCJ 4WX20SQLhVPVstKYpKOkgW7 19XHBsYWluXGZzMjAgIHRhb iBmcmFnbWVudChzKSBvZiB0 lYDnbEEguCYyh9JkwN7zGEI yJNV5WAWzGWS9USZiGbZibQ btom11COG6c2mkzAIpDWxnJ aahxQPzdiW9DQbXEBJBREnY OgDdSH1uULwZQ5INOWeOVat cPRZ9B6ddgPO3o0zvhEKxm2 h9NDpyUCS6cEVseiSuU2viT LalhGWpp6exkYOtWLqaNwdo kXPytuS4OXkRBMNSPZqGKhF hBL7nZInOW4UAViU8FcJcXU Z4SjgiaNniHcpkkhKfxQKtS nCnsK1xvXxksT5vEwTeWDDq QAPftXYayByic0BrqVw6vLG lWWpiCWUsH1Uxc8W8hYCmze kuXHBhclxwYXJkXHBhciBCL mFYNPYtpVWkFBGwmzAfr8Nz YWxpbiwgZGVzaWduYXRlZCA bFrBSMWG1hE0jJtzwaUB9Jo spJWWsc1DfI8U1BAUaTUlqy 7ikDHDbIYdcx2JmQZzAQQDU EM7WWW3fsVE3JIkUCDHNW2t NfOJ7SAInwRY4O804JHJdNS OekMEvPMirH927DHPkNIX8U RBoPMhvm3dzRIXoJAoyi8Lk EDaTYPZEFE1OWV4brQQ1OQl MEISZLRjvBJY2MCvkgXE4t3 uegNMkx5l1YGmoASK4jKtbs PHocbohrgYqZUG4OM5rBpTz G45ozqYkxjwxk7JteUzkk6U rDD6gUCF0slsbZkEpJjHtxG ItEwXkqISpNnLzD38suYKbz HJiyXzaYrjihXT0IMjnDivc fP6qlVUZBZBACbnUHgdsxnZ qOT5REONUHbKSDQ06YvHvFX V2KDs7wLilVcbfmsSzyNXxD xKimV5jwT5sRFkefhNnPARg LhswXgtprMK2RXziTemfeY5 zdCBIWVBFUkxJTksgbmFtZT 0QIQCCCU3IxVM5DTCcrSL0I P57BIJyTKGcyEBbESyhA635 OAHpMXudBEQvHeZzWWKXm8J roFe5HNM7Qa1irOQzAYNcrl FfAPMac8NdwTXgYHUyQerhT QDeyJUmOZfpGJQpT3pryUEg OUUxQSBQyn6ipfRsgIDgnD1 ppRujowTmHJMmu2VuAJSdWF Q6JB7grvSzcRHxDRWSt6Dpg XOqbMEiOYUrADBWlUVth48c qgEXamRkyYFgAXFso1QfVIb wBWIJQVE9VXduO5jvCVBfnq AGKBFRPPiLX4JeYQUCBQVRO TIvKaDXBC5uFcEdDAD5BN88 AzK2FLKuvEQ2FJ5iAKS1QQb sPAbdJlPuAJP5BP9qOURRHH CYTGvCIL6XAMJDSHOHIF0QU vHwD6hPJTSUXpTvYOJZKUJG XNMpNxITEL3uL8uQJPQDFbB wOAKQYZVPFCQxDK7BJDJGPB DEUL5NJYRKL40RNDJDBCWSU 0UUZ3nZPDBvv5UNiiUvRfBz KL57NfT0OLKdMI6iSYqTFLC wimKlJ8rnWLwenQB2CkGkUO CwtNWuu4VBjtWkOnRfTO98J oC8NVKnPH94NGmOHHAjaySl N0mbPSovaYN3EpPsAJXilYN VMWLZTWqTRNOBJy2HMJUUPB DYDM5CQwYhB9VHNG7WTj6HT IHPKGZIDF3PTFjXVvXeP8TW QO8FZj3PPTMRLECTHF0XUzY dCFDLN8AZQiAJZ1npZFNFYC IKMIRkTcSBAB0wLJUTCU2OU OGFRQCCM83VESOXEIXAJ2VM RH0= [facility] Work Phone: Pathology report microscopic observation Narrative Other stain g4ydqRGiGEVwcYRmCcDgRFB qKXSgw5eaLHXuuLCkKsUwMx NcZnRuYmpcdWMxXGRlZmYwe 3hbj094wLYna0xxQAHqKaZ2 iBLzRUOhmDFkR478TGYgEXf di6rrb4ZjYZYrcZIgn2V5PE EPmyfcvGa6jNvxE14ax7V7B habT2dmNAXgZMCkD4BrXI3o AXCgQsq0TEA6DNY9ZJHmEDS uL5YkPO9lZQPucDJaVJs1m5 lceHxwETLiNXX9z8guKEilf yHyLL8veu8ajGu7q1uqxlBn TVHrILQzuFQBGEBqS2KwrHs rWd5hrNh1gCjlTgkxMNH5Og t8XC8paj67kpt3iLsjKVKln bxyDcD7OSkjOUNmysrdBEg8 USycVTJvfXM7CWEziJXrB2G mSAYxFW6gpvp5UHV3UKrvOQ VeKnG6IDHazIMtRDKynVveL Cwja746QVX7LbKtDG4pF9Av k7U2cI0jzBMeAFPmhBCpIoP mFJTmla2kjMDeYJbrx2MbIK Z9ewH5eOXlbDZyWQRsXS16B nxzz6SkQoyuNLL1VPUcfyGr v2Glh6liZkJfuyJtY5wxB1L yZHJoZWFkXHBnYnJkcmZvb3 Jsj1JvvFIjeEv7s0pbCSTwL SZycTpzu5txYXA8RWSmI2R5 nLPat8xuZUziFKSmuIO9qoS 5JJOtmWVbP0AudD9aOCRaID 0mcxl3q2naCDI8WFreHMFeW gN4vyO0VVLlaSQyHLJhuEtg AIltp157EWT7HgZbQCZrq9L gL6VbmHhtX09fjZcuT92pIM XjxCrspK2aaImrpY4nUxOdE nMyNFxxbFxwbGFpblxmMVxm suZyCVvdgdnsOFIqPZsjH5i bAbXpMMRdpKhrVCzac6HcPT UpZTXbKiMlZClytr3pJ24pr VFuBTooePlqQCFrl07ujOBn aTDsVn8mcKShCyvoNTO2 [facility] Work Phone: [facility] Work Phone: Troponin x 2 (Now and Repeat in 3 hours)on 06-24-2022 [facility] Troponin I 1 ng/L < -/+ 12 change [facility] Troponin I Delta Change No biomarker evidence of cardiac injury. [facility] Troponin I 31 ng/L NINF - 59 ng/L [facility] Troponin I 30 ng/L NINF - 59 ng/L [facility] Troponin I Interpretation Normal [facility] XR Chest 1 Viewon 06-24-2022 1. New mild pulmonary vascular congestion. 2. No focal airspace consolidation. Workstation ID: [id number] [facility] EXAMINATION: XR CHEST PA/AP 06/24/2022 9:59 am HISTORY: ORDERING SYSTEM PROVIDED HISTORY: chest pain, TECHNOLOGIST PROVIDED HISTORY: Illness/Other Reason for exam: chest pain Cancer History: unknown Surgery, RadiationHistory: cholecystectomy, hysterectomy, oophrectomy Encounter Type: Initial Additional signs and symptoms: SOB ORDERING SYSTEM PROVIDED DIAGNOSIS CODES: N17.9 Acute renal failure superimposed on chronic kidney disease, unspecified CKD stage, unspecified acute renal failure type (HCC) N18.9 Acute renal failure superimposed on chronic kidney disease, unspecified CKD stage, unspecified acute renal failure type (HCC) R19.7 Diarrhea, unspecified type E87.5 Hyperkalemia J44.9 Chronic obstructive pulmonary disease, unspecified COPD type (HCC) K62.5 Rectal bleeding K62.3 Rectal prolapse COMPARISON: Chest radiograph 06/21/2022. FINDINGS: AP upright portable view of the chest. Lungs are clear of focal consolidation. No pleural effusion or pneumothorax. Slightly prominent cardiomediastinal silhouette. Mild pulmonary vascular congestion. Clustered right upper lobe calcifications are unchanged. No acute osseous or soft tissue abnormalities. Meaghan Sidhu, DO - 06/24/2022 EXAMINATION: XR CHEST PA/AP 06/24/2022 9:59 am HISTORY: ORDERING SYSTEM PROVIDED HISTORY: chest pain, TECHNOLOGIST PROVIDED HISTORY: Illness/Other Reason for exam: chest pain Cancer History: unknown Surgery, RadiationHistory: cholecystectomy, hysterectomy, oophrectomy Encounter Type: Initial Additional signs and symptoms: SOB ORDERING SYSTEM PROVIDED DIAGNOSIS CODES: N17.9 Acute renal failure superimposed on chronic kidney disease, unspecified CKD stage, unspecified acute renal failure type (HCC) N18.9 Acute renal failure superimposed on chronic kidney disease, unspecified CKD stage, unspecified acute renal failure type (HCC) R19.7 Diarrhea, unspecified type E87.5 Hyperkalemia J44.9 Chronic obstructive pulmonary disease, unspecified COPD type (HCC) K62.5 Rectal bleeding K62.3 Rectal prolapse COMPARISON: Chest radiograph 06/21/2022. FINDINGS: AP upright portable view of the chest. Lungs are clear of focal consolidation. No pleural effusion or pneumothorax. Slightly prominent cardiomediastinal silhouette. Mild pulmonary vascular congestion. Clustered right upper lobe calcifications are unchanged. No acute osseous or soft tissue abnormalities. IMPRESSION: 1. New mild pulmonary vascular congestion. 2. No focal airspace consolidation. Workstation ID: [id number] [facility] Radiology Study observation (narrative) XR Chest 1 ViewOrdered By: Virgil Canada on 06-24-2022 [facility] Work Phone: Basic metabolic 2000 panelOr dered By: Ronal Allan on 06-23-2022 Anion gap [Moles/Vol] 14 mmol/L 10 - 2 0 mmol/L [facility] Calcium [Mass/Vol] 8.0 mg/dL Low 8.4 - 10. 2 mg/dL [facility] Chloride [Moles/Vol] 105 mmol/L 98 - 10 8 mmol/L [facility] Creatinine [Mass/Vol] 2.86 mg/dL High 0.60 - 1.20 mg/dL [facility] GFR/1.73 sq M.predicted CKD-EPI (S/P/Bld) [Vol rate/Area] 18 Low - PINF [facility] Comment on above: Estimated GFR was ca lculated using the 2020 CKD-EPI creatinine equation. Glucose [Mass/Vol] 85 mg/dL 65 - 99 mg/dL [facility] HCO3 [Moles/Vol] 20 mmol/L Low 21 - 32 mmol/L [facility] Interpretation and review of laboratory results Abnormal [facility] Potassium [Moles/Vol] 5.3 mmol/L High 3.5 - 5.1 mmol/L [facility] Sodium [Moles/Vol] 134 mmol/L Low 135 - 145 mmol/L [facility] Urea nitrogen [Mass/Vol] 45 mg/dL High 8 - 25 mg/dL [facility] Urea nitrogen/Creatinine [Mass ratio] 15.7 mg/mg 10 - 20 [facility] has implemented the eGFR calculation approach that does not have a coefficient for race that conforms to the NKF-ASN Task Force Recommendations. [facility] CBC panel Auto (Bld)on 06-23 Erythrocyte distribution width (RBC) [Entitic vol] 15.8 % High 11.6 - 14.8 % [facility] Hematocrit (Bld) [Volume fraction] 28.1 % Low 36 - 46 % [facility] Hemoglobin (Bld) [Mass/Vol] 8.4 g/dL Low 12 - 16 g/dL [facility] Interpretation and review of laboratory results Abnormal [facility] MCH (RBC) [Entitic mass] 24.9 pg Low 26 - 34 pg [facility] MCHC (RBC) [Mass/Vol] 29.9 g/dL Low 31 - 37 g/dL [facility] MCV (RBC) [Entitic vol] 83.4 fL 80 - 100 fL [facility] Nucleated RBC (Bld) [#/Vol] 0.00 10*3/uL [facility] Nucleated RBC/100 WBC (Bld) [Ratio] 0.0 % [facility] Platelet mean volume (Bld) [Entitic vol] 9.9 fL 9.4 - 12.4 fL [facility] Platelets (Bld) [#/Vol] 303 10*3/uL [facility] RBC (Bld) [#/Vol] 3.37 10*6/uL Low [facility] ealth WBC (Bld) [#/Vol] 10.12 10*3/uL [facility] Glucose (Bld) [Mass/Vol]on 0 06-23-2022 Glucose [Mass/Vol] 102 mg/dL High 65 - 99 mg/dL [facility] Interpretation and review of laboratory results Abnormal [facility] Glucose [Mass/Vol] 97 mg/dL 65 - 99 mg/dL [facility] Interpretation and review of laboratory results Normal [facility] Glucose [Mass/Vol] 90 mg/dL 65 - 99 mg/dL [facility] Interpretation and review of laboratory results Normal [facility] Glucose [Mass/Vol] 90 mg/dL 65 - 99 mg/dL [facility] Interpretation and review of laboratory results Normal [facility] SIGMOIDOSCOPYon 06-23-2022 [facility] TSH DL <= 0.005 mIU/L Qnon 0 06-23-2022 Interpretation and review of laboratory results Normal [facility] TSH Qn 0.68 m[IU]/L [facility] Gastrointestinal pathogens D NA and RNA panel CATRINA+non-probe (Stl)Ordered By: Andree Chapa on 06-22-2022 Adenovirus 40+41 DNA CATRINA+non-probe Ql (Stl) Not detected Not Detected [facility] Astrovirus subtypes 1-8 RNA CATRINA+non-probe Ql (Stl) Not detected Not Detected [facility] C. cayetanensis DNA CATRINA+non-probe Ql (Stl) Not detected Not Detected [facility] C. coli+jejuni+upsaliensis DNA CATRINA+non-probe Ql (Stl) Not detected Not Detected [facility] C. difficile toxin A+B tcdA+tcdB genes CATRINA+non-probe Ql (Stl) Not detected Not Detected [facility] Cryptosporidium sp DNA CATRINA+non-probe Ql (Stl) Not detected Not Detected [facility] E. coli enteroaggregative [place] plasmid aggR+aatA genes CATRINA+non-probe Ql (Stl) Not detected Not Detected [facility] E. coli enteropathogenic eae gene CATRINA+non-probe Ql (Stl) Not detected Not Detected [facility] E. coli enterotoxigenic ltA+st1a+st1b genes CATRINA+non-probe Ql (Stl) Not detected Not Detected [facility] E. coli stx1+stx2 genes CATRINA+non-probe Ql (Stl) Not detected Not Detected [facility] E. histolytica DNA CATRINA+non-probe Ql (Stl) Not detected Not Detected [facility] G. lamblia DNA CATRINA+non-probe Ql (Stl) Not detected Not Detected [facility] Interpretation and review of laboratory results Normal [facility] Norovirus genogroup I+II RNA CATRINA+non-probe Ql (Stl) Not detected Not Detected [facility] P. shigelloides DNA CATRINA+non-probe Ql (Stl) Not detected Not Detected [facility] Rotavirus A RNA CATRINA+non-probe Ql (Stl) Not detected Not Detected [facility] S. enterica+bongori DNA CATRINA+non-probe Ql (Stl) Not detected Not Detected [facility] Sapovirus genogroups I+II+IV+V RNA CATRINA+non-probe Ql (Stl) Not detected Not Detected [facility] Shigella species+EIEC invasion plasmid antigen H ipaH gene CATRINA+non-probe Ql (Stl) Not detected Not Detected [facility] V. cholerae DNA CATRINA+non-probe Ql (Stl) Not detected Not Detected [facility] V. cholerae+parahaemolytic us+vulnificus DNA CATRINA+non-probe Ql (Stl) Not detected Not Detected [facility] Y. enterocolitica DNA CATRINA+non-probe Ql (Stl) Not detected Not Detected [facility] Results of PCR testi ng for stool pathogens must be taken into clinical context when making treatment decisions. Most gastrointestinal infections due to common bacterial and viral causes are self-limited in nature and do not require antimicrobial therapy. The use of antimicrobial therapy must be carefully weighed against unintended and potentially harmful consequences. The role of antimicrobial therapy depends on the implicated pathogen. In general, antimicrobial agents are only used to treat parasitic infections as well as select bacterial infections. [facility] Glucose (Bld) [Mass/Vol]on 0 06-22-2022 Glucose [Mass/Vol] 98 mg/dL 65 - 99 mg/dL [facility] Interpretation and review of laboratory results Normal [facility] Glucose [Mass/Vol] 95 mg/dL 65 - 99 mg/dL [facility] Interpretation and review of laboratory results Normal [facility] Glucose [Mass/Vol] 121 mg/dL High 65 - 99 mg/dL [facility] Interpretation and review of laboratory results Abnormal [facility] Glucose [Mass/Vol] 99 mg/dL 65 - 99 mg/dL [facility] Interpretation and review of laboratory results Normal [facility] Basic metabolic 1998 panelon 06-21-2022 [facility] CBC Auto Differentialon 06-06 Basophils (Bld) [#/Vol] 0.06 10*3/uL [facility] Basophils/100 WBC (Bld) 0.3 % [facility] Eosinophils (Bld) [#/Vol] 0.03 10*3/uL [facility] Eosinophils/100 WBC (Bld) 0.1 % [facility] Erythrocyte distribution width (RBC) [Entitic vol] 15.8 % High 11.6 - 14.8 % [facility] Hematocrit (Bld) [Volume fraction] 36.1 % 36 - 46 % [facility] Hemoglobin (Bld) [Mass/Vol] 10.9 g/dL Low 12 - 16 g/dL [facility] Immature granulocytes (Bld) [#/Vol] 0.12 10*3/uL [facility] Immature granulocytes/100 WBC (Bld) 0.60 % [facility] Comment on above: The IG parameter is the percentage of metamyelocytes, myelocytes and promyelocytes. An immature granulocyte count (IG) of 1% or more suggests the possibility of infection, an IG count of 3% is very likely related to an infection. Interpretation and review of laboratory results Abnormal [facility] Lymphocytes (Bld) [#/Vol] 1.18 10*3/uL [facility] Lymphocytes/100 WBC (Bld) 5.7 % [facility] MCH (RBC) [Entitic mass] 24.7 pg Low 26 - 34 pg [facility] MCHC (RBC) [Mass/Vol] 30.2 g/dL Low 31 - 37 g/dL [facility] MCV (RBC) [Entitic vol] 81.9 fL 80 - 100 fL [facility] Monocytes (Bld) [#/Vol] 0.99 10*3/uL High [facility] Monocytes/100 WBC (Bld) 4.8 % [facility] Neutrophils (Bld) [#/Vol] 18.32 10*3/uL High [facility] Neutrophils/100 WBC (Bld) 88.5 % [facility] Nucleated RBC (Bld) [#/Vol] 0.00 10*3/uL [facility] Nucleated RBC/100 WBC (Bld) [Ratio] 0.0 % [facility] Platelet mean volume (Bld) [Entitic vol] 9.7 fL 9.4 - 12.4 fL [facility] Platelets (Bld) [#/Vol] 503 10*3/uL [facility] RBC (Bld) [#/Vol] 4.41 10*6/uL [facility] ealt WBC (Bld) [#/Vol] 20.70 10*3/uL [facility] CT Abdomen Pelvis Without Co ntraston 06-21-2022 1. There is fluid throughout the colon which may be consistent with rapid transit/diarrhea. 2. Hepatic steatosis. 3. Extensive aortic calcification. [employer] Workstation ID: [id number] [place] EXAMINATION: CT ABDOMEN PELVIS WITHOUT CONTRAST HISTORY: ORDERING SYSTEM PROVIDED HISTORY: Abdominal pain, acute, nonlocalized, TECHNOLOGIST PROVIDED HISTORY: Illness/Other Reason for exam: abdominal pain with nausea, vomiting, diarrhea and rectal bleeding Encounter Type: Initial Additional signs and symptoms: n/a ORDERING SYSTEM PROVIDED DIAGNOSIS CODES: COMPARISON: CT abdomen and pelvis 12/29/2021. TECHNIQUE: CT examination of the abdomen and pelvis without IV contrast. Coronal and sagittal reformations were performed. Dose reduction techniques were achieved by using automated exposure control and/or adjustment of mA and/or kV according to patient size and/or use of iterative reconstruction technique. FINDINGS: The included lung bases are clear. Evaluation of the soft tissue organs and vasculature within the abdomen and pelvis is limited by noncontrast technique. There is diffuse hepatic steatosis. Unremarkable spleen, pancreas, adrenal glands. Cholecystectomy clips. No renal calculus. No hydronephrosis. The abdominal aorta is normal in course and caliber with extensive calcification. No evidence of bowel obstruction. Normal appendix. There is fluid throughout the colon. No free air or free fluid. No enlarged lymph nodes. The uterus is absent. Advanced degenerative changes at the lumbar spine. No suspicious osseous lesion. [place] Vasiliy Lopez MD - 06/21/2022 EXAMINATION: CT ABDOMEN PELVIS WITHOUT CONTRAST HISTORY: ORDERING SYSTEM PROVIDED HISTORY: Abdominal pain, acute, nonlocalized, TECHNOLOGIST PROVIDED HISTORY: Illness/Other Reason for exam: abdominal pain with nausea, vomiting, diarrhea and rectal bleeding Encounter Type: Initial Additional signs and symptoms: n/a ORDERING SYSTEM PROVIDED DIAGNOSIS CODES: COMPARISON: CT abdomen and pelvis 12/29/2021. TECHNIQUE: CT examination of the abdomen and pelvis without IV contrast. Coronal and sagittal reformations were performed. Dose reduction techniques were achieved by using automated exposure control and/or adjustment of mA and/or kV according to patient size and/or use of iterative reconstruction technique. FINDINGS: The included lung bases are clear. Evaluation of the soft tissue organs and vasculature within the abdomen and pelvis is limited by noncontrast technique. There is diffuse hepatic steatosis. Unremarkable spleen, pancreas, adrenal glands. Cholecystectomy clips. No renal calculus. No hydronephrosis. The abdominal aorta is normal in course and caliber with extensive calcification. No evidence of bowel obstruction. Normal appendix. There is fluid throughout the colon. No free air or free fluid. No enlarged lymph nodes. The uterus is absent. Advanced degenerative changes at the lumbar spine. No suspicious osseous lesion. IMPRESSION: 1. There is fluid throughout the colon which may be consistent with rapid transit/diarrhea. 2. Hepatic steatosis. 3. Extensive aortic calcification. [employer] Workstation ID: [id number] [facility] Radiology Study observation (narrative) [facility] Comprehensive metabolic 2000 panelon 06-21-2022 Albumin [Mass/Vol] 3.2 g/dL 3.2 - 5.2 g/dL [facility] ALP [Catalytic activity/Vol] 81 U/L 40 - 150 U/L [facility] ALT [Catalytic activity/Vol] 131 U/L High 14 - 65 U/L [facility] AST [Catalytic activity/Vol] 712 U/L High 0 - 45 U/L [facility] Bilirubin [Mass/Vol] 0.2 mg/dL 0 - 1.3 mg/dL [facility] Calcium [Mass/Vol] 9.4 mg/dL 8.4 - 10. 2 mg/dL [facility] Protein [Mass/Vol] 8.0 g/dL 6 - 8 g/dL [facility] Critical Careon 06-21-2022 Jaiden Bagley MD 06/21/2022 2:29 PM Critical Care Performed by: Jaiden Bagley MD Authorized by: Jaiden Bagley MD Total critical care time: 30 minutes [facility] Glucose (Bld) [Mass/Vol]on 0 06-21-2022 Glucose [Mass/Vol] 122 mg/dL High 65 - 99 mg/dL [facility] Interpretation and review of laboratory results Abnormal [facility] Glucose [Mass/Vol] 98 mg/dL 65 - 99 mg/dL [facility] Interpretation and review of laboratory results Normal [facility] INR Coag (PPP) [Relative pablo e]on 06-21-2022 Interpretation and review of laboratory results Normal [facility] PT Coag (PPP) [Time] 14.2 s [facility] During the induction phase of oral anticoagulation, the INR may not reflect the anticoagulation status of the patient. Therapeutic ranges for INR's are: Most clinical situations: INR 2.0-3.0 Mechanical Prosthetic Valve: INR 2.5-3.5 Critical: INR >5.0 [facility] Laboratory - Chemistry and C hemistry - challengeon 06-21-2022 Anion gap [Moles/Vol] 15 mmol/L 10 - 2 0 mmol/L [facility] Chloride [Moles/Vol] 97 mmol/L Low 98 - 10 8 mmol/L [facility] Creatinine [Mass/Vol] 2.61 mg/dL High 0.60 - 1.20 mg/dL [facility] GFR/1.73 sq M.predicted CKD-EPI (S/P/Bld) [Vol rate/Area] 20 Low - PINF [facility] Comment on above: Estimated GFR was ca lculated using the 2020 CKD-EPI creatinine equation. Glucose [Mass/Vol] 124 mg/dL High 65 - 99 mg/dL [facility] HCO3 [Moles/Vol] 23 mmol/L 21 - 32 mmol/L [facility] Potassium [Moles/Vol] 5.2 mmol/L High 3.5 - 5.1 mmol/L [facility] Sodium [Moles/Vol] 130 mmol/L Low 135 - 145 mmol/L [facility] Urea nitrogen [Mass/Vol] 48 mg/dL High 8 - 25 mg/dL [facility] Urea nitrogen/Creatinine [Mass ratio] 18.4 mg/mg 10 - 20 [facility] Lactate [Moles/Vol]on 2021 Interpretation and review of laboratory results Normal [facility] Lactic Acid, Plasmaon 2021 Lactate [Moles/Vol] 0.9 mmol/L 0.6 - 2 mmol/L [facility] Lipaseon 06-21-2022 Lipase [Catalytic activity/Vol] 133 U/L 73 - 393 U/L [facility] Lipase [Catalytic activity/V ol]on 06-21-2022 Interpretation and review of laboratory results Normal [facility] No Panel Informationon 06-21 [facility] Interpretation and review of laboratory results Abnormal [facility] has implemented the eGFR calculation approach that does not have a coefficient for race that conforms to the NKF-ASN Task Force Recommendations. [facility] PT/INRon 06-21-2022 INR Coag (PPP) [Relative time] 1.1 {INR} 0.8 - 1.1 [facility] Troponinon 06-21-2022 Troponin I 34 ng/L NINF - 59 ng/L [facility] Troponin I Interpretation Normal [facility] XR Chest 1 Viewon 06-21-2022 No evident acute process in the chest. [facility]/lab Workstation ID: [id number] [place] EXAMINATION: XR CHEST PA/AP HISTORY: Weakness. COMPARISON: Chest x-ray 03/31/2022. TECHNIQUE: A portable frontal upright view of the chest. FINDINGS: Calcified granulomas at the right upper lobe. No airspace opacity. No pneumothorax or pleural effusion. Cardiomediastinal silhouette and pulmonary vasculature are within normal limits. Surgical clips project at the left neck. Surgical anchor at the right humeral head. Definicare Vasiliy Lopez MD - 06/21/2022 EXAMINATION: XR CHEST PA/AP HISTORY: Weakness. COMPARISON: Chest x-ray 03/31/2022. TECHNIQUE: A portable frontal upright view of the chest. FINDINGS: Calcified granulomas at the right upper lobe. No airspace opacity. No pneumothorax or pleural effusion. Cardiomediastinal silhouette and pulmonary vasculature are within normal limits. Surgical clips project at the left neck. Surgical anchor at the right humeral head. IMPRESSION: No evident acute process in the chest. [facility] Workstation ID: [id number] [facility] Radiology Study observation (narrative) [place] XR Chest 1 ViewOrdered By: Brandie Lopez on 06-21-2022 [facility] Work Phone: Basic metabolic 2000 panelon 04-04-2022 Anion gap [Moles/Vol] 13 mmol/L 10 - 2 0 mmol/L [facility] Calcium [Mass/Vol] 9.1 mg/dL 8.4 - 10. 2 mg/dL [facility] Chloride [Moles/Vol] 99 mmol/L 98 - 10 8 mmol/L [facility] Creatinine [Mass/Vol] 1.23 mg/dL High 0.60 - 1.20 mg/dL [facility] GFR/1.73 sq M.predicted CKD-EPI (S/P/Bld) [Vol rate/Area] 47 Low - PINF [facility] Glucose [Mass/Vol] 101 mg/dL High 65 - 99 mg/dL [facility] HCO3 [Moles/Vol] 28 mmol/L 21 - 32 mmol/L [facility] Interpretation and review of laboratory results Abnormal [facility] Potassium [Moles/Vol] 4.3 mmol/L 3.5 - 5.1 mmol/L [facility] Sodium [Moles/Vol] 136 mmol/L 135 - 145 mmol/L [facility] Urea nitrogen [Mass/Vol] 10 mg/dL 8 - 25 mg/dL [facility] Urea nitrogen/Creatinine [Mass ratio] 8.1 mg/mg Low 10 - 20 [facility] The eGFR should be u sed for monitoring renal function only and not for medication dosing. [facility] CBC panel Auto (Bld)on 04-04 Erythrocyte distribution width (RBC) [Entitic vol] 16.1 % High 11.6 - 14.8 % [facility] Hematocrit (Bld) [Volume fraction] 32.8 % Low 36 - 46 % [facility] Hemoglobin (Bld) [Mass/Vol] 9.9 g/dL Low 12 - 16 g/dL [facility] Interpretation and review of laboratory results Abnormal [facility] MCH (RBC) [Entitic mass] 24.6 pg Low 26 - 34 pg [facility] MCHC (RBC) [Mass/Vol] 30.2 g/dL Low 31 - 37 g/dL [facility] MCV (RBC) [Entitic vol] 81.6 fL 80 - 100 fL [facility] Nucleated RBC (Bld) [#/Vol] 0.00 10*3/uL [facility] Nucleated RBC/100 WBC (Bld) [Ratio] 0.0 % [facility] Platelet mean volume (Bld) [Entitic vol] 10.0 fL 9.4 - 12.4 fL [facility] Platelets (Bld) [#/Vol] 267 10*3/uL [facility] RBC (Bld) [#/Vol] 4.02 10*6/uL [facility] ealth WBC (Bld) [#/Vol] 6.14 10*3/uL [facility] Glucose (Bld) [Mass/Vol]on 0 04-04-2022 Glucose [Mass/Vol] 106 mg/dL High 65 - 99 mg/dL [facility] Interpretation and review of laboratory results Abnormal [facility] Magnesium Levelon 04-04-2022 Magnesium [Mass/Vol] 1.9 mg/dL 1.6 - 2 .4 mg/dL [facility] Magnesium [Mass/Vol]on 04-04 Interpretation and review of laboratory results Normal [facility] Phosphate [Mass/Vol]on 04-04 Interpretation and review of laboratory results Abnormal [facility] Phosphoruson 04-04-2022 Phosphate [Mass/Vol] 4.4 mg/dL High 2.8 - 4 .1 mg/dL [facility] Basic metabolic 2000 panelon 04-03-2022 Anion gap [Moles/Vol] 15 mmol/L 10 - 2 0 mmol/L [facility] Calcium [Mass/Vol] 9.1 mg/dL 8.4 - 10. 2 mg/dL [facility] Chloride [Moles/Vol] 101 mmol/L 98 - 10 8 mmol/L [facility] Creatinine [Mass/Vol] 1.14 mg/dL 0.60 - 1.20 mg/dL [facility] GFR/1.73 sq M.predicted CKD-EPI (S/P/Bld) [Vol rate/Area] 51 Low - PINF [facility] Glucose [Mass/Vol] 101 mg/dL High 65 - 99 mg/dL [facility] HCO3 [Moles/Vol] 26 mmol/L 21 - 32 mmol/L [facility] Interpretation and review of laboratory results Abnormal [facility] Potassium [Moles/Vol] 4.7 mmol/L 3.5 - 5.1 mmol/L [facility] Sodium [Moles/Vol] 137 mmol/L 135 - 145 mmol/L [facility] Urea nitrogen [Mass/Vol] 10 mg/dL 8 - 25 mg/dL [facility] Urea nitrogen/Creatinine [Mass ratio] 8.8 mg/mg Low 10 - 20 [facility] The eGFR should be u sed for monitoring renal function only and not for medication dosing. [facility] CBC panel Auto (Bld)on 04-03 Erythrocyte distribution width (RBC) [Entitic vol] 16.2 % High 11.6 - 14.8 % [facility] Hematocrit (Bld) [Volume fraction] 30.9 % Low 36 - 46 % [facility] Hemoglobin (Bld) [Mass/Vol] 9.3 g/dL Low 12 - 16 g/dL [facility] Interpretation and review of laboratory results Abnormal [facility] MCH (RBC) [Entitic mass] 24.4 pg Low 26 - 34 pg [facility] MCHC (RBC) [Mass/Vol] 30.1 g/dL Low 31 - 37 g/dL [facility] MCV (RBC) [Entitic vol] 81.1 fL 80 - 100 fL [facility] Nucleated RBC (Bld) [#/Vol] 0.00 10*3/uL [facility] Nucleated RBC/100 WBC (Bld) [Ratio] 0.0 % [facility] Platelet mean volume (Bld) [Entitic vol] 10.3 fL 9.4 - 12.4 fL [facility] Platelets (Bld) [#/Vol] 286 10*3/uL [facility] RBC (Bld) [#/Vol] 3.81 10*6/uL Low [facility] WBC (Bld) [#/Vol] 7.32 10*3/uL [facility] Glucose (Bld) [Mass/Vol]on 0 04-03-2022 Glucose [Mass/Vol] 118 mg/dL High 65 - 99 mg/dL [facility] oHeal Interpretation and review of laboratory results Abnormal [facility] Glucose [Mass/Vol] 141 mg/dL High 65 - 99 mg/dL [facility] oHealth Interpretation and review of laboratory results Abnormal [facility] Glucose [Mass/Vol] 98 mg/dL 65 - 99 mg/dL [facility] oHealth Interpretation and review of laboratory results Normal [facility] Glucose [Mass/Vol] 109 mg/dL High 65 - 99 mg/dL [facility] oHealth Interpretation and review of laboratory results Abnormal [facility] Magnesium Levelon 04-03-2022 Magnesium [Mass/Vol] 1.9 mg/dL 1.6 - 2 .4 mg/dL [facility] Magnesium [Mass/Vol]on 04-03 Interpretation and review of laboratory results Normal [facility] Phosphate [Mass/Vol]on 04-03 Interpretation and review of laboratory results Normal [facility] Phosphoruson 04-03-2022 Phosphate [Mass/Vol] 4.1 mg/dL 2.8 - 4 .1 mg/dL [facility] Basic metabolic 2000 panelon 04-02-2022 Anion gap [Moles/Vol] 16 mmol/L 10 - 2 0 mmol/L [facility] Calcium [Mass/Vol] 8.6 mg/dL 8.4 - 10. 2 mg/dL [facility] Chloride [Moles/Vol] 101 mmol/L 98 - 10 8 mmol/L [facility] Creatinine [Mass/Vol] 1.12 mg/dL 0.60 - 1.20 mg/dL [facility] GFR/1.73 sq M.predicted CKD-EPI (S/P/Bld) [Vol rate/Area] 52 Low - PINF [facility] Glucose [Mass/Vol] 95 mg/dL 65 - 99 mg/dL [facility] HCO3 [Moles/Vol] 24 mmol/L 21 - 32 mmol/L [facility] Interpretation and review of laboratory results Abnormal [facility] Potassium [Moles/Vol] 5.0 mmol/L 3.5 - 5.1 mmol/L [facility] Sodium [Moles/Vol] 136 mmol/L 135 - 145 mmol/L [facility] Urea nitrogen [Mass/Vol] 11 mg/dL 8 - 25 mg/dL [facility] Urea nitrogen/Creatinine [Mass ratio] 9.8 mg/mg Low 10 - 20 [facility] The eGFR should be u sed for monitoring renal function only and not for medication dosing. [facility] CBC panel Auto (Bld)on 04-02 Erythrocyte distribution width (RBC) [Entitic vol] 16.4 % High 11.6 - 14.8 % [facility] Hematocrit (Bld) [Volume fraction] 31.9 % Low 36 - 46 % [facility] Hemoglobin (Bld) [Mass/Vol] 9.4 g/dL Low 12 - 16 g/dL [facility] Interpretation and review of laboratory results Abnormal [facility] MCH (RBC) [Entitic mass] 24.4 pg Low 26 - 34 pg [facility] MCHC (RBC) [Mass/Vol] 29.5 g/dL Low 31 - 37 g/[facility] (RBC) [Entitic vol] 82.9 fL 80 - 100 fL [facility] Nucleated RBC (Bld) [#/Vol] 0.00 10*3/uL [facility] Nucleated RBC/100 WBC (Bld) [Ratio] 0.0 % [facility] Platelet mean volume (Bld) [Entitic vol] 9.9 fL 9.4 - 12.4 fL [facility] Platelets (Bld) [#/Vol] 280 10*3/uL [facility] RBC (Bld) [#/Vol] 3.85 10*6/uL Low [facility] WBC (Bld) [#/Vol] 7.21 10*3/uL [facility] ECG 12 Leadon 04-02-2022 Atrial Rate 82 BPM [facility] P [place] 70 degrees [facility] P-R Interval 152 ms [facility]val 368 ms [facility] QRS Duration 94 ms [facility] QTC Calculation (Bezet) 429 ms [facility] R [place] 45 degrees [facility] T [place] 16 degrees [facility] Ventricular [facility] Normal sinus rhythm Nonspecific T wave abnormality Abnormal ECG Confirmed by RIVER ZAVALA MD ([id number]) on 04/02/2022 8:18:58 AM MUSE [facility] Atrial Rate 75 BPM [facility] P [place] 56 degrees [facility] P-R Interval 144 ms [facility] Q-T Interval 366 ms [facility] QRS Duration 98 ms [facility] QTC Calculation (Bezet) 408 ms [facility] R [place] 31 degrees [facility] T [place] 1 degrees [facility] Ventricular Rate 75 BPM [facility] Normal sinus rhythm Nonspecific T wave abnormality Abnormal ECG Confirmed by RIVER ZAVALA MD ([id number]) on 04/02/2022 8:13:22 AM MUSE [facility] Glucose (Bld) [Mass/Vol]on 0 04-02-2022 Glucose [Mass/Vol] 101 mg/dL High 65 - 99 mg/dL [facility] Interpretation and review of laboratory results Abnormal [facility] Glucose [Mass/Vol] 107 mg/dL High 65 - 99 mg/dL [facility] oHeal Interpretation and review of laboratory results Abnormal [facility] Glucose [Mass/Vol] 153 mg/dL High 65 - 99 mg/dL [facility] Interpretation and review of laboratory results Abnormal [facility] Glucose [Mass/Vol] 95 mg/dL 65 - 99 mg/dL [facility] Interpretation and review of laboratory results Normal [facility] Magnesium Levelon 04-02-2022 Magnesium [Mass/Vol] 1.9 mg/dL 1.6 - 2 .4 mg/dL [facility] Magnesium [Mass/Vol]on 04-02 Interpretation and review of laboratory results Normal [facility] Phosphate [Mass/Vol]on 04-02 Interpretation and review of laboratory results Normal [facility] Phosphoruson 04-02-2022 Phosphate [Mass/Vol] 3.1 mg/dL 2.8 - 4 .1 mg/dL [facility] UrinalysisOrdered By: Surendra Patel on 04-02-2022 Bacteria Auto Ql (U) Rare Abnormal None Se en /hpf [facility] Bilirubin Ql (U) Negative Negative [facility] th Clarity Refractometry automated (U) Clear Clear [facility] Color (U) Yellow Colorless, Yellow [facility] Glucose Auto test strip (U) [Mass/Vol] Negative Negative mg/dL [facility] Hemoglobin Auto test strip Ql (U) Moderate Abnormal Negative [facility] Interpretation and review of laboratory results Abnormal [facility] Ketones (U) [Mass/Vol] Negative Negat radha mg/dL [facility] Leukocyte esterase Auto test strip Ql (U) Trace Abnormal Negative [facility] Mucus Auto (Urine sed) [#/Area] Rare None Seen, Rare /lpf [facility] Nitrite Auto test strip Ql (U) Negative Negative [facility] pH (U) 6.0 [pH] 5 - 7 [facility] Protein (U) [Mass/Vol] 100 mg/dL Abnormal Negat radha mg/dL [facility] RBC Auto (Urine sed) [#/Area] 64 High [facility] Specific gravity (U) [Rel density] 1.010 1.005 - 1.025 [facility] Urobilinogen (U) [Mass/Vol] mg/dL NINF - 2.0 mg/dL [facility] WBC Auto (Urine sed) [#/Area] 4 [facility] Microscopic examinat ion is performed on all urinalysis samples and only positive findings are reported. The test for blood on the chemical analytic portion of urinalysis may also be positive due to hemoglobinuria and myoglobinuria and if red blood cells are present they are quantified by microscopic examination. [facility] Basic metabolic 2000 panelon 04-01-2022 Anion gap [Moles/Vol] 13 mmol/L 10 - 2 0 mmol/L [facility] Calcium [Mass/Vol] 8.5 mg/dL 8.4 - 10. 2 mg/dL [facility] Chloride [Moles/Vol] 102 mmol/L 98 - 10 8 mmol/L [facility] Creatinine [Mass/Vol] 1.48 mg/dL High 0.60 - 1.20 mg/dL [facility] GFR/1.73 sq M.predicted CKD-EPI (S/P/Bld) [Vol rate/Area] 37 Low - PINF [facility] Glucose [Mass/Vol] 92 mg/dL 65 - 99 mg/dL [facility] HCO3 [Moles/Vol] 24 mmol/L 21 - 32 mmol/L [facility] Interpretation and review of laboratory results Abnormal [facility] Potassium [Moles/Vol] 4.8 mmol/L 3.5 - 5.1 mmol/L [facility] Sodium [Moles/Vol] 134 mmol/L Low 135 - 145 mmol/L [facility] Urea nitrogen [Mass/Vol] 15 mg/dL 8 - 25 mg/dL [facility] Urea nitrogen/Creatinine [Mass ratio] 10.1 mg/mg 10 - 20 [facility] The eGFR should be u sed for monitoring renal function only and not for medication dosing. [facility] CBC panel Auto (Bld)on 04-01 Erythrocyte distribution width (RBC) [Entitic vol] 16.3 % High 11.6 - 14.8 % [facility] Hematocrit (Bld) [Volume fraction] 31.8 % Low 36 - 46 % [facility] Hemoglobin (Bld) [Mass/Vol] 9.4 g/dL Low 12 - 16 g/dL [facility] Interpretation and review of laboratory results Abnormal [facility] MCH (RBC) [Entitic mass] 24.7 pg Low 26 - 34 pg [facility] MCHC (RBC) [Mass/Vol] 29.6 g/dL Low 31 - 37 g/dL [facility] MCV (RBC) [Entitic vol] 83.5 fL 80 - 100 fL [facility] Nucleated RBC (Bld) [#/Vol] 0.00 10*3/uL [facility] Nucleated RBC/100 WBC (Bld) [Ratio] 0.0 % [facility] Platelet mean volume (Bld) [Entitic vol] 9.8 fL 9.4 - 12.4 fL [facility] Platelets (Bld) [#/Vol] 269 10*3/uL [facility] RBC (Bld) [#/Vol] 3.81 10*6/uL Low [facility] WBC (Bld) [#/Vol] 7.70 10*3/uL [facility] Glucose (Bld) [Mass/Vol]on 04-01-2022 Glucose [Mass/Vol] 133 mg/dL High 65 - 99 mg/dL [facility] Interpretation and review of laboratory results Abnormal [facility] Glucose [Mass/Vol] 103 mg/dL High 65 - 99 mg/dL [facility] o[facility]al Interpretation and review of laboratory results Abnormal [facility] Glucose [Mass/Vol] 97 mg/dL 65 - 99 mg/dL [facility] Interpretation and review of laboratory results Normal [facility] Glucose [Mass/Vol] 95 mg/dL 65 - 99 mg/dL [facility] Interpretation and review of laboratory results Normal [facility] Magnesium Levelon 04-01-2022 Magnesium [Mass/Vol] 1.9 mg/dL 1.6 - 2 .4 mg/dL [facility] Magnesium [Mass/Vol]on 04-01 Interpretation and review of laboratory results Normal [facility] Phosphate [Mass/Vol]on 04-01 Interpretation and review of laboratory results Normal [facility] Phosphoruson 04-01-2022 Phosphate [Mass/Vol] 3.5 mg/dL 2.8 - 4 .1 mg/dL [facility] Basic metabolic 2000 panelon 03-31-2022 Anion gap [Moles/Vol] 17 mmol/L 10 - 2 0 mmol/L [facility] Calcium [Mass/Vol] 8.5 mg/dL 8.4 - 10. 2 mg/dL [facility] Chloride [Moles/Vol] 98 mmol/L 98 - 10 8 mmol/L [facility] Creatinine [Mass/Vol] 1.97 mg/dL High 0.60 - 1.20 mg/dL [facility] GFR/1.73 sq M.predicted CKD-EPI (S/P/Bld) [Vol rate/Area] 26 Low - PINF [facility] Glucose [Mass/Vol] 97 mg/dL 65 - 99 mg/dL [facility] HCO3 [Moles/Vol] 24 mmol/L 21 - 32 mmol/L [facility] Interpretation and review of laboratory results Abnormal [facility] Potassium [Moles/Vol] 4.8 mmol/L 3.5 - 5.1 mmol/L [facility] Sodium [Moles/Vol] 134 mmol/L Low 135 - 145 mmol/L [facility] Urea nitrogen [Mass/Vol] 22 mg/dL 8 - 25 mg/dL [facility] Urea nitrogen/Creatinine [Mass ratio] 11.2 mg/mg 10 - 20 [facility] The eGFR should be u sed for monitoring renal function only and not for medication dosing. [facility] CBC panel Auto (Bld)on 03-31 Erythrocyte distribution width (RBC) [Entitic vol] 16.5 % High 11.6 - 14.8 % [facility] Hematocrit (Bld) [Volume fraction] 34.1 % Low 36 - 46 % [facility] Hemoglobin (Bld) [Mass/Vol] 10.0 g/dL Low 12 - 16 g/dL [facility] Interpretation and review of laboratory results Abnormal [facility] MCH (RBC) [Entitic mass] 24.5 pg Low 26 - 34 pg [facility] MCHC (RBC) [Mass/Vol] 29.3 g/dL Low 31 - 37 g/dL [facility] MCV (RBC) [Entitic vol] 83.6 fL 80 - 100 fL [facility] Nucleated RBC (Bld) [#/Vol] 0.00 10*3/uL [facility] Nucleated RBC/100 WBC (Bld) [Ratio] 0.0 % [facility] Platelet mean volume (Bld) [Entitic vol] 10.0 fL 9.4 - 12.4 fL [facility] Platelets (Bld) [#/Vol] 413 10*3/uL High [facility] RBC (Bld) [#/Vol] 4.08 10*6/uL [facility] ealth WBC (Bld) [#/Vol] 12.23 10*3/uL [facility] EKGon 03-31-2022 Ordered by an unspecified provider. [facility] Glucose (Bld) [Mass/Vol]on 0 03-31-2022 Glucose [Mass/Vol] 119 mg/dL High 65 - 99 mg/dL [facility] Interpretation and review of laboratory results Abnormal [facility] Glucose [Mass/Vol] 113 mg/dL High 65 - 99 mg/dL [facility] Interpretation and review of laboratory results Abnormal [facility] Glucose [Mass/Vol] 121 mg/dL High 65 - 99 mg/dL [facility] Interpretation and review of laboratory results Abnormal [facility] Glucose [Mass/Vol] 114 mg/dL High 65 - 99 mg/dL [facility] Interpretation and review of laboratory results Abnormal [facility] Magnesium Levelon 03-31-2022 Magnesium [Mass/Vol] 1.9 mg/dL 1.6 - 2 .4 mg/dL [facility] Magnesium [Mass/Vol]on 03-31 Interpretation and review of laboratory results Normal [facility] Phosphate [Mass/Vol]on 03-31 Interpretation and review of laboratory results Abnormal [facility] Phosphoruson 03-31-2022 Phosphate [Mass/Vol] 5.2 mg/dL High 2.8 - 4 .1 mg/dL [facility] Troponin OnceOrdered By: Ana Win on 03-31-2022 Delta Difference Troponin T 1 ng/L < = -/+ 7 change [facility] Inter Troponin T Delta Change Probable non-acute cardiac injury or late presentation of acute injury. [facility] Interpretation and review of laboratory results Abnormal [facility] Troponin T 33 ng/L Critically high NINF - 14 ng/L [facility] XR CHEST AP/PA AND LATon XR CHEST AP/PA AND LAT EXAMINATION: TWO XRAY VIEWS OF THE CHEST 03/31/2022 10:47 am COMPARISON: 03/07/2014. HISTORY: ORDERING SYSTEM PROVIDED HISTORY: postop eval with known poor pulmonary reserves; on O2 at home; TECHNOLOGIST PROVIDED HISTORY: Illness/Other Acuity: Acute Reason for Exam: POST OP EVAL WITH POOR PULMONARY RESERVES Surgery, Radiation History: cholecystectomy, hysterectomy, oophrectomy Type of Encounter: Initial Additional signs and symptoms: POST OP ORDERING SYSTEM PROVIDED DIAGNOSIS CODES: K62.3 Rectal prolapse FINDINGS: The heart size is within normal limits. The pulmonary vasculature is also within normal limits. No acute infiltrates are seen. The costophrenic angles are sharp bilaterally. No pneumothoraces are noted. There are scattered calcified granulomas. IMPRESSION: 1. No active pulmonary disease. Workstation ID: [id number] Dictated by: JOSE BEDOYA on MonMarch 31, 2022 11:02:50 AM EDT Transcribed by: JOSE BEDOYA on MonMarch 31, 2022 11:02:50 AM EDT Finalized by: JOSE BEDOYA on MonMarch 31, 2022 11:02:50 AM EDT [facility] Comment on above: Order Comment: Injur y/Trauma or Illness?:Illness/Other How long have you had these symptoms (acute/chronic)?:Acute Reason for exam?:POST OP EVAL WITH POOR PULMONARY RESERVES History of cancer?:unknown Surgeries, chemotherapy, or radiation?:cholecystectomy, hysterectomy, oophrectomy Type of Exam?:Initial Additional signs and symptoms?:POST OP XR Chest AP/PA and LATon 1. No active pulmonary disease. Workstation ID: [id number] [place] EXAMINATION: TWO XRAY VIEWS OF THE CHEST 03/31/2022 10:47 am COMPARISON: 03/07/2014. HISTORY: ORDERING SYSTEM PROVIDED HISTORY: postop eval with known poor pulmonary reserves; on O2 at home; TECHNOLOGIST PROVIDED HISTORY: Illness/Other Acuity: Acute Reason for Exam: POST OP EVAL WITH POOR PULMONARY RESERVES Surgery, Radiation History: cholecystectomy, hysterectomy, oophrectomy Type of Encounter: Initial Additional signs and symptoms: POST OP ORDERING SYSTEM PROVIDED DIAGNOSIS CODES: K62.3 Rectal prolapse FINDINGS: The heart size is within normal limits. The pulmonary vasculature is also within normal limits. No acute infiltrates are seen. The costophrenic angles are sharp bilaterally. No pneumothoraces are noted. There are scattered calcified granulomas. [facility] Jose Bedoya MD - 03/31/2022 EXAMINATION: TWO XRAY VIEWS OF THE CHEST 03/31/2022 10:47 am COMPARISON: 03/07/2014. HISTORY: ORDERING SYSTEM PROVIDED HISTORY: postop eval with known poor pulmonary reserves; on O2 at home; TECHNOLOGIST PROVIDED HISTORY: Illness/Other Acuity: Acute Reason for Exam: POST OP EVAL WITH POOR PULMONARY RESERVES Surgery, Radiation History: cholecystectomy, hysterectomy, oophrectomy Type of Encounter: Initial Additional signs and symptoms: POST OP ORDERING SYSTEM PROVIDED DIAGNOSIS CODES: K62.3 Rectal prolapse FINDINGS: The heart size is within normal limits. The pulmonary vasculature is also within normal limits. No acute infiltrates are seen. The costophrenic angles are sharp bilaterally. No pneumothoraces are noted. There are scattered calcified granulomas. IMPRESSION: 1. No active pulmonary disease. Workstation ID: [id number] [facility] Radiology Study observation (narrative) [facility] XR Chest AP/PA and LATOrdere d By: Jose Bedoya on 03-31-2022 [facility] Work Phone: APTTon 03-30-2022 aPTT Coag (Bld) [Time] 33 s [facility] Blood type and Indirect anti body screen panel (Bld)on 03-30-2022 ABO and Rh group Nom (Bld) Blood group A Rh(D) positive [facility] Blood group antibody screen Ql Negative [facility] Specimen Expires 04/02/2022 23:59 EST [facility] Glucose (Bld) [Mass/Vol]on 0 03-30-2022 Glucose [Mass/Vol] 105 mg/dL High 65 - 99 mg/dL [facility] [facility] Interpretation and review of laboratory results Abnormal [facility] Glucose [Mass/Vol] 131 mg/dL High 65 - 99 mg/dL [facility] Interpretation and review of laboratory results Abnormal [facility] Glucose [Mass/Vol] 145 mg/dL High 65 - 99 mg/dL [facility] Interpretation and review of laboratory results Abnormal [facility] Troponin OnceOrdered By: Hong Davison on 03-30-2022 Interpretation and review of laboratory results Abnormal [facility] Troponin T 32 ng/L Critically high NINF - 14 ng/L [facility] Troponin T Interpretation Possible acute cardiac injury. [facility] aPTT Coag (Bld) [Time]on Interpretation and review of laboratory results Normal [facility] Therapeutic range fo r APTT's is 68 - 104 seconds [facility] No Panel Informationon 12-30 6 min walk starting on room air SPO2 HR Start 96% 109 1 min 87% 119 O2 applied at 2 lpm per n/c walk resumed when spo2 reached 91% after approx 30-45 sec Pt reports SOB t/o walk, denied any other complaints. Pt stopped to rest several times t/o walk. 2 min 92% 127 O2 2 lpm Pt walked approx 864 feet. 3 min 94% 119 O2 2 lpm 4 min 92% 123 O2 2 lpm 5 min 93% 126 O2 2 lpm 6 min 92% 127 O2 2 lpm After 1 min rest 96% 121 O2 2 lpm After 2 min rest 97% 109 O2 2 lpm CAREFUSION PFT LAB [facility] HGB + HCTon 07-05-2021 Hematocrit (Bld) [Volume fraction] 35.9 % Low 36.0 - 46.0 [facility] Comment on above: Performed By: #### H H #### [place] [id number] Hemoglobin (Bld) [Mass/Vol] 11.3 g/dL Low 12.0 - 16.0 [facility] Comment on above: Performed By: #### H H #### [place] [id number] RENAL FUNCTION PANELon 07-05 Albumin [Mass/Vol] 4.0 g/dL Normal 3.4 - 5.0 [facility] Comment on above: Performed By: #### R ENAL #### [place] [id number] Anion gap [Moles/Vol] 11 mmol/L Normal 10 - 20 [facility] Comment on above: Performed By: #### R ENAL #### [address] [address] Calcium [Mass/Vol] 8.8 mg/dL Normal 8.6 - 10.3 [facility] Comment on above: Performed By: #### R ENAL #### [address] [address] Chloride [Moles/Vol] 103 mmol/L Normal 98 - 107 [facility] Comment on above: Performed By: #### R ENAL #### [address] [address] Creatinine [Mass/Vol] 1.28 mg/dL High 0.50 - 1.05 [facility] Comment on above: Performed By: #### R ENAL #### [address] [address] GFR- AM. 51 mL/min/1.73m2 Abnormal >60 [facility] Comment on above: Result Comment: CALC ULATIONS OF ESTIMATED GFR ARE PERFORMED USING THE MDRD STUDY EQUATION FOR THE IDMS-TRACEABLE CREATININE METHODS. CLIN CHEM 2007;53:766-72 Performed By: #### R ENAL #### [address] [address] GFR-NON AM. 42 mL/min/1.73m2 Abnormal >60 [facility] Comment on above: Performed By: #### R ENAL #### [address] [address] Glucose [Mass/Vol] 97 mg/dL Normal 74 - 99 [facility] Comment on above: Performed By: #### R ENAL #### [address] [address] HCO3 (Bld) [Moles/Vol] 27 mmol/L Normal 21 - 32 [facility] Comment on above: Performed By: #### R ENAL #### [address] [address] Phosphate [Mass/Vol] 4.0 mg/dL Normal 2.5 - 4.9 [facility] Comment on above: Result Comment: The performance characteristics of phosphorus testing in heparinized plasma have been validated by the individual laboratory site where testing is performed. Testing on heparinized plasma is not approved by the FDA; however, such approval is not necessary. Performed By: #### R ENAL #### [address] [address] Potassium [Moles/Vol] 4.8 mmol/L Normal 3.5 - 5.3 [facility] Comment on above: Performed By: #### R ENAL #### [address] [address] Sodium [Moles/Vol] 136 mmol/L Normal 136 - 145 [facility] Comment on above: Performed By: #### R ENAL #### [address] [address] Urea nitrogen [Mass/Vol] 32 mg/dL High 6 - 23 [facility] Comment on above: Performed By: #### R ENAL #### [address] [address] TOTAL PROTEIN, URINE SPOTon 07-05-2021 CREATININE,URINE 37.0 mg/dL Normal 20.0 - 320.0 [facility] Comment on above: Performed By: #### T PS2 #### [address] [address] T. PROTEIN/CREAT RATIO 0.32 mg/mg Creat High 0.00 - 0.17 [facility] Comment on above: Performed By: #### T PS2 #### [address] [address] TOTAL PROT,URINE SPOT 12 mg/dL Normal 5 - 24 [facility] Comment on above: Performed By: #### T PS2 #### [address] [address] KAPPA/LAMBDA FREE LIGHT MARQUIS N,Son 06-20-2021 FREE KAPPA LIGHT CHAINS,S 5.60 mg/dL High 0.33 - 1.94 [facility] Comment on above: Performed By: #### K STEWART #### [facility] [address] [place] [address] FREE KAPPA/LAMBDA RATIO,S 1.19 Normal 0.26 - 1.65 [facility] Comment on above: Result Comment: Unde tected antigen excess is a rare event but cannot be excluded. If these free light chain results do not agree with other clinical or laboratory findings, or if the sample is from a patient that has previously demonstrated antigen excess, the result must be checked by retesting at a higher sample dilution. Results should always be interpreted in conjunction with other laboratory tests and clinical evidence; any anomalies should be discussed with the testing laboratory. Performed By: #### K STEWART #### [facility] [address] [place] [address] FREE LAMBDA LIGHT CHAIN,S 4.72 mg/dL High 0.57 - 2.63 [facility] Comment on above: Performed By: #### K STEWART #### [facility] [address] [place] [address] CBCon 06-18-2021 Erythrocyte distribution width (RBC) [Ratio] 18.8 % High 11.5 - 14.5 [facility] Comment on above: Performed By: #### C BC #### [address] [address] Hematocrit (Bld) [Volume fraction] 35.3 % Low 36.0 - 46.0 [facility] Comment on above: Performed By: #### C BC #### [address] [address] Hemoglobin (Bld) [Mass/Vol] 10.9 g/dL Low 12.0 - 16.0 [facility] Comment on above: Performed By: #### C BC #### [address] [address] MCHC (RBC) [Mass/Vol] 31.0 g/dL Low 32.0 - 36.0 [facility] Comment on above: Performed By: #### C BC #### [address] [address] MCV (RBC) [Entitic vol] 78 fL Low 80 - 100 [facility] Comment on above: Performed By: #### C BC #### [address] [address] Platelets (Bld) [#/Vol] 291 10*3/uL Normal 150 - 450 [facility] Comment on above: Performed By: #### C BC #### [address] [address] RBC 4.49 x10E12/L Normal 4.00 - 5.20 [facility] Comment on above: Performed By: #### C BC #### [address] [address] WBC (Bld) [#/Vol] 7.1 10*3/uL Normal 4.4 - 11.3 [facility] Comment on above: Performed By: #### C BC #### [address] [address] COMPREHENSIVE PANELon 2020 Albumin [Mass/Vol] 3.9 g/dL Normal 3.4 - 5.0 [facility] Comment on above: Performed By: #### C MP #### [address] [address] ALP [Catalytic activity/Vol] 62 U/L Normal 33 - 136 [facility] Comment on above: Performed By: #### C MP #### [address] [address] ALT [Catalytic activity/Vol] 13 U/L Normal 7 - 45 [facility] Comment on above: Result Comment: Michelle ents treated with Sulfasalazine may generate falsely decreased results for ALT. Performed By: #### C MP #### [address] [address] Anion gap [Moles/Vol] 12 mmol/L Normal 10 - 20 [facility] Comment on above: Performed By: #### C MP #### [address] [address] AST [Catalytic activity/Vol] 14 U/L Normal 9 - 39 [facility] Comment on above: Performed By: #### C MP #### [address] [address] Bilirubin [Mass/Vol] 0.3 mg/dL Normal 0.0 - 1.2 [facility] Comment on above: Performed By: #### C MP #### [address] [address] Calcium [Mass/Vol] 9.0 mg/dL Normal 8.6 - 10.3 [facility] Comment on above: Performed By: #### C MP #### [address] [address] Chloride [Moles/Vol] 101 mmol/L Normal 98 - 107 [facility] Comment on above: Performed By: #### C MP #### [address] [address] Creatinine [Mass/Vol] 1.68 mg/dL High 0.50 - 1.05 [facility] Comment on above: Performed By: #### C MP #### [place] [id number] GFR- AM. 38 mL/min/1.73m2 Abnormal >60 [facility] Comment on above: Result Comment: CALC ULATIONS OF ESTIMATED GFR ARE PERFORMED USING THE MDRD STUDY EQUATION FOR THE IDMS-TRACEABLE CREATININE METHODS. CLIN CHEM 2007;53:766-72 Performed By: #### C MP #### [address] [address] GFR-NON AM. 31 mL/min/1.73m2 Abnormal >60 [facility] Comment on above: Performed By: #### C MP #### [address] [address] Glucose [Mass/Vol] 89 mg/dL Normal 74 - 99 [facility] Comment on above: Performed By: #### C MP #### [address] [address] HCO3 (Bld) [Moles/Vol] 24 mmol/L Normal 21 - 32 [facility] Comment on above: Performed By: #### C MP #### [address] [address] Potassium [Moles/Vol] 5.0 mmol/L Normal 3.5 - 5.3 [facility] Comment on above: Performed By: #### C MP #### [address] [address] Protein [Mass/Vol] 7.1 g/dL Normal 6.4 - 8.2 [facility] Comment on above: Performed By: #### C MP #### [address] [address] Sodium [Moles/Vol] 132 mmol/L Low 136 - 145 [facility] Comment on above: Performed By: #### C MP #### [address] [address] Urea nitrogen [Mass/Vol] 45 mg/dL High 6 - 23 [facility] Comment on above: Performed By: #### C MP #### [address] [address] FOLATE, SERUMon 06-18-2021 Folate [Mass/Vol] 11.9 ng/mL Normal >5.0 [facility] Comment on above: Result Comment: Low <3.4 Borderline 3.4-5.0 Normal >5.0 . Patients receiving more than 5 mg/day of biotin may have interference in test results. A sample should be taken no sooner than eight hours after previous dose. Contact the testing laboratory for additional information. Performed By: #### F OLA2 #### [address] [address] TSHon 06-18-2021 TSH Qn 1.76 m[IU]/L Normal 0.44 - 3.98 [facility] Comment on above: Result Comment: TSH testing is performed using different testing methodology at [facility] than at other [facility]. Direct result comparisons should only be made within the same method. Performed By: #### T SH2 #### [address] [address] VITAMIN B12on 06-18-2021 Cobalamin (Vitamin B12) [Mass/Vol] 467 pg/mL Normal 211 - 911 [facility] Comment on above: Performed By: #### V TB12 #### [address] [address] PT Progress Noteon 1 PT Progress Note Therapy Diagnosis Assessed Cervical radiculopathy, acute (723.4) (M54.12) Plan Goals: Goals set and discussed today. STGs Pt will improve cervical AROM by >5 degrees from initial eval to increase ease with functional mobilitymet Pt will demonstrate 4/10 pain or less with cervical rotation in order to increase ease with driving-not met Pt will demonstrate a 10% improvement in NDI to demonstrate increased functional mobility-not met Pt will demonstrate >=50% reduction of pain on average for easier adl not met Patient to have reduction in peripheral symptoms due to improved centralization for easier adls-not met Patient to modify environment for easier adls and work as needed for reduction of pain-not met LTGs-not met due to pain didn't change Patient to have functional ROM in all planes without compensation for easier driving Patient will demonstrate not more than 2/10 pain with normal activity for easier adls Patient to report on average a 50% decrease in average pain levels through the day for easier home chores/tasks-not met Patient to be I in knowledge and application of proper body mechanics partially met Pt will improve cervical AROM by >10 degrees from initial eval to increase ease with functional mobility-partially met Planned interventions include: education/instruction, home program, manual therapy, mechanical traction, neuromuscular re-education, self care/home management and therapeutic exercises . can try mechanical traction intermittent x 20 mins with 30 secs on/20 off with lbs as tolerated. OPERATION AGENT can also manual distraction and soft tissue work also prn. Frequency and duration: 2 time(s) a week, for 4 weeks, for 8 visits. Potential to achieve rehab goals is good Patient is going to cancel her other appts.-PT doesn't see further progress that would occur. Patient wants an MRI and reports feeling like she's getting worse. Discharge patient: Attendance inconsistent. Progress plateaued. Discharge Plan Related to Patient's Continuing Care: home program and return to physician. Assessment At this time, the patient is not reporting progress with PT. Average pain runs 5/10 not too bad but states she's just recently got up so it's not bad yet. Patient is now getting headaches and reports she's getting more headaches. Patient is going to follow up with the physician in 2 months. Currently the patient is managing pain by medical marijuana-patient reports she does her exercises every other day, the days she doesn't come in. PT doesn't know that more PT would help as patient has a basic hep-chin tucks in seated and supine, SCM and scalene stretches and cervical rotation. She reports the injections given didn't hep. PT reiterated her desire to have a MRI. Patient no showed x 2 times for PT and cancelled once. Response to treatment: decreased pain and improved knowledge and understanding of condition. Patient was able to complete today's treatment with ease. Adult Risk Screening There are no spiritual/cultural practices/values/needs that are important to know Initial Fall Risk Screening: RADHA has not fallen in the last 6 months. Her fall did not result in injury. RADHA does not have a fear of falling. She does not need assistance with sitting, standing or walking. Does not need assistance walking in her home. She does not need assistance in an unfamiliar setting. The patient is not using an assistive device. Pain Scale: On a scale of 0 to 10, the patient rates the pain at 7. Please identify location of pain: headache and neck pain. Pain Quality: burning and sharp. The pain makes it hard for the patient to do these things: exercise, sleep, house work and self-care (bathing, dressing, eating). Insurance Insurance reviewed Visit number: 7 Authorization not required after evaluation 03/1402-05-21 [place] cervicalgia/cervical radiculopathy precautions: needs inhaler, CKD stage 3. Rare deficiency cpt-2 - sugars aren't converted to protein so patient has to eat protein and low fat Onset Date: 2020 Subjective Patient reports:. No change in status-if anything patient states she is getting worse-reports shots didn't do any relief at all-patient went home and the pain went down the right arm from shoulder to bicep to medial arm. Patient is now getting onset of headaches-patient feels this is from normally sleeping and laying on the left side which makes her hurt-the right side is ok with 1 pillow. If doesn't use pillows she still can't lay on the left. Patient does shoulder rolls also . Home program performing as directed: Partially. Precautions: none. Fall Risk: none Objective Ortho OBSERVATION: Patient appears uncomfortable sitting. Patient uses marijuana and states it helps the patient sleep at night POSTURE:wfls INTEGUMENTARY:no problems GIRTH: n/a AROM:(A), AAROM (AA), PROM (P) rotation left 50, right 70, ext 40 with pain, flexion chin to chest MMT: [facility] PALPATION: defer (more content not included)... Normal [facility]West Basic metabolic 2000 panelOr dered By: Georgie Vázquez on 04-14-2021 Anion gap [Moles/Vol] 12 mmol/L 10 - 2 0 mmol/L [facility] Calcium [Mass/Vol] 9.2 mg/dL 8.4 - 10. 2 mg/dL [facility] Chloride [Moles/Vol] 104 mmol/L 98 - 10 8 mmol/L [facility] Creatinine [Mass/Vol] 1.77 mg/dL High 0.60 - 1.20 [facility] GFR/1.73 sq M.predicted CKD-EPI (S/P/Bld) [Vol rate/Area] 30 Low >=60 mL/min/1.73 m2 [facility] Glucose [Mass/Vol] 112 mg/dL High 65 - 99 mg/dL [facility] HCO3 [Moles/Vol] 25 mmol/L 21 - 32 mmol/L [facility] Potassium [Moles/Vol] 4.8 mmol/L 3.5 - 5.1 mmol/L [facility] Sodium [Moles/Vol] 136 mmol/L 135 - 145 mmol/L [facility] Urea nitrogen [Mass/Vol] 35 mg/dL High 8 - 25 mg/dL [facility] Urea nitrogen/Creatinine [Mass ratio] 19.8 mg/mg [facility] The eGFR should be u sed for monitoring renal function only and not for medication dosing. [facility] CBC WITH AUTO DIFFERENTIALOr dered By: Georgie Vázquez on 04-14-2021 Basophils (Bld) [#/Vol] 0.07 10*3/uL [facility] Basophils/100 WBC (Bld) 1.0 % [facility] Eosinophils (Bld) [#/Vol] 0.12 10*3/uL [facility] Eosinophils/100 WBC (Bld) 1.6 % [facility] Erythrocyte distribution width (RBC) [Entitic vol] 17.5 % High 11.6 - 14.8 % [facility] Hematocrit (Bld) [Volume fraction] 39.6 % 36.0 - 46.0 % [facility] Hemoglobin (Bld) [Mass/Vol] 12.0 g/dL 12.0 - 16.0 g/dL [facility] Immature granulocytes (Bld) [#/Vol] 0.02 10*3/uL [facility] Immature granulocytes/100 WBC (Bld) 0.30 % [facility] Comment on above: The IG parameter is the percentage of metamyelocytes, myelocytes and promyelocytes. An immature granulocyte count (IG) of 1% or more suggests the possibility of infection, an IG count of 3% is very likely related to an infection. Interpretation and review of laboratory results Abnormal [facility] Lymphocytes (Bld) [#/Vol] 1.44 10*3/uL [facility] Lymphocytes/100 WBC (Bld) 19.6 % [facility] MCH (RBC) [Entitic mass] 24.0 pg Low 26.0 - 34.0 pg [facility] MCHC (RBC) [Mass/Vol] 30.3 g/dL Low 31.0 - 37.0 g/dL [facility] MCV (RBC) [Entitic vol] 79.4 fL Low 80.0 - 100.0 fL [facility] Monocytes (Bld) [#/Vol] 0.52 10*3/uL [facility] Monocytes/100 WBC (Bld) 7.1 % [facility] Neutrophils (Bld) [#/Vol] 5.16 10*3/uL [facility] Neutrophils/100 WBC (Bld) 70.4 % [facility] Nucleated RBC (Bld) [#/Vol] 0.00 10*3/uL [facility] Nucleated RBC/100 WBC (Bld) [Ratio] 0.0 % [facility] Platelet mean volume (Bld) [Entitic vol] 10.9 fL 9.4 - 12.4 fL [facility] Platelets (Bld) [#/Vol] 282 10*3/uL [facility] RBC (Bld) [#/Vol] 4.99 10*6/uL [facility] ([facility] [#/Vol] 7.33 10*3/uL [facility] CPK NO MBOrdered By: Georgie Vázquez on 04-14-2021 CK [Catalytic activity/Vol] 1936 U/L High 40 - 170 U/L [facility] Gold TopOrdered By: Georgie carey on 04-14-2021 Extra Tube Hold for add-ons. [facility] Comment on above: Auto resulted. [facility] Magnesium LevelOrdered By: Damari Vázquez on 04-14-2021 Magnesium [Mass/Vol] 2.2 mg/dL 1.6 - 2 .4 mg/dL [facility] Magnesium [Mass/Vol]Ordered By: Georgie Vázquez on 04-14-2021 [facility] No Panel InformationOrdered By: Georgie Vázquez on 04-14-2021 Extra Tube Hold for add-ons. [facility] Comment on above: Auto resulted. [facility] Extra Tube Hold for add-ons. [facility] Comment on above: Auto resulted. [facility] Interpretation and review of laboratory results Abnormal [facility] Interpretation and review of laboratory results Normal [facility] PhosphorusOrdered By: Georgie Vázquez on 04-14-2021 Phosphate [Mass/Vol] 3.5 mg/dL 2.8 - 4 .1 mg/dL [facility] Therapy Communicationon 06-0 Therapy Communication Message RADHA SHAFER no showed today . No voicemail set up. Signatures Electronically signed by : Anjana Hernandez PTA; Apr 14 2021 4:45PM EST (Author) Normal [facility] URINALYSISOrdered By: Georgie Vázquez on 04-14-2021 Bacteria Auto Ql (U) None Seen None Se en /hpf [facility] Clarity Refractometry automated (U) Clear Clear [facility] Color (U) Yellow Colorless, Yellow [facility] Glucose Auto test strip (U) [Mass/Vol] Negative Negative mg/dL [facility] Ketones (U) [Mass/Vol] Negative Negat radha mg/dL [facility] Leukocyte esterase Auto test strip Ql (U) Negative Negative [facility] pH (U) 5.5 [pH] [facility] Specific gravity (U) [Rel density] 1.014 [facility] UrinalysisOrdered By: Georgie Vázquez on 04-14-2021 Bilirubin Ql (U) Negative Negative [facility] th Epithelial cells.squamous Auto (Urine sed) [#/Area] <1 [facility] Hemoglobin Auto test strip Ql (U) Small Abnormal Negative [facility] Interpretation and review of laboratory results Abnormal [facility] Mucus Auto (Urine sed) [#/Area] Rare None Seen, Rare /lpf [facility] Nitrite Auto test strip Ql (U) Negative Negative [facility] Protein (U) [Mass/Vol] 30 mg/dL Abnormal Negat radha mg/dL [facility] Comment on above: False positive resul ts may occur in urines with large amounts of hemoglobin, pH greater than 8.0, contrast medium, or disinfectants including ammonium compounds. Urobilinogen (U) [Mass/Vol] mg/dL <2.0 mg/dL [facility] WBC Auto (Urine sed) [#/Area] 1 [facility] Microscopic examinat ion is performed on all urinalysis samples and only positive findings are reported. The test for blood on the chemical analytic portion of urinalysis may also be positive due to hemoglobinuria and myoglobinuria and if red blood cells are present they are quantified by microscopic examination. [facility] Therapy Communicationon Therapy Communication Message RADHA SHAFER canceled today . Signatures Electronically signed by : Anjana Hernandez PTA; Apr 12 2021 4:52PM EST (Author) Normal [facility] PT Progress Noteon PT Progress Note Therapy Diagnosis Assessed Cervical radiculopathy, acute (723.4) (M54.12) Plan Goals: Goals set and discussed today. STGs Pt will improve cervical AROM by >5 degrees from initial eval to increase ease with functional mobility Pt will demonstrate 4/10 pain or less with cervical rotation in order to increase ease with driving Pt will demonstrate a 10% improvement in NDI to demonstrate increased functional mobility Pt will demonstrate >=50% reduction of pain on average for easier adls Patient to have reduction in peripheral symptoms due to improved centralization for easier adls Patient to modify environment for easier adls and work as needed for reduction of pain LTGs Patient to have functional ROM in all planes without compensation for easier driving Patient will demonstrate not more than 2/10 pain with normal activity for easier adls Patient to report on average a 50% decrease in average pain levels through the day for easier home chores/tasks Patient to be I in knowledge and application of proper body mechanics Pt will improve cervical AROM by >10 degrees from initial eval to increase ease with functional mobility Planned interventions include: education/instruction, home program, manual therapy, mechanical traction, neuromuscular re-education, self care/home management and therapeutic exercises . can try mechanical traction intermittent x 20 mins with 30 secs on/20 off with lbs as tolerated. OPERATION AGENT can also manual distraction and soft tissue work also prn. Frequency and duration: 2 time(s) a week, for 4 weeks, for 8 visits. Potential to achieve rehab goals is good Plan to continue with manual therapy, and progress flexibility/postual strengthening as tolerated to reduce pain and improve ease/tolerance with daily activity. Assessment (Pt. states she is having trouble breathing, she is trying to get oxygen for home. Pt. sees on Monday). Pt. is breathing fine during session, on room air. Held some exercises and focused on manual therapies and mechanical traction this date d/t pain levels/discomfort. Relief following session, patient will monitor sx.'s after session with adjustments made in exercises this date. Response to treatment: decreased pain. Patient was able to complete today's treatment with some difficulty. Adult Risk Screening There are no spiritual/cultural practices/values/needs that are important to know Initial Fall Risk Screening: RADHA has not fallen in the last 6 months. Her fall did not result in injury. RADHA does not have a fear of falling. She does not need assistance with sitting, standing or walking. Does not need assistance walking in her home. She does not need assistance in an unfamiliar setting. The patient is not using an assistive device. Pain Scale: On a scale of 0 to 10, the patient rates the pain at 7. Please identify location of pain: headache and neck pain. Pain Quality: burning and sharp. The pain makes it hard for the patient to do these things: exercise, sleep, house work and self-care (bathing, dressing, eating). Insurance Insurance reviewed Visit number: 4 Authorization not required after evaluation 01/1202-05-21 [place] cervicalgia/cervical radiculopathy precautions: needs inhaler, CKD stage 3. Rare deficiency cpt-2 - sugars aren't converted to protein so patient has to eat protein and low fat Onset Date: 2020 Subjective Patient reports:. Pt. states she's doing about the same with neck pain. Pt. c/o pain into the right bicep and forearm. States she cannot sleep onher right side. States she goes home after therapy and neck feels irritated. Pt. did like the cervical traction. Pt. states she's getting ready to move to her own apartment. Home program performing as directed: Yes. Precautions: none. Fall Risk: none Treatment Time in clinic started at 4:10 pm Time in clinic ended at 5:03 pm Total time in clinic is 53 minutes. Total timed code time is 50 minutes. Therapeutic exercise (18446): timed minutes 25, units 2 . UBE L2 3'fwd/3''bwd scap retraction 2x10 (X) bwd shoulder rolls 2x10 (X) UT stretch 20 x2 B (X) LS stretch 20 x2B (X) chin tucks supine 2x10 3 hold cervical rotation supine x10 each supine B ER pull aparts orange x10 (X) supine B H abd pull aparts orange x10 (X). Manual Therapy (29714): timed minutes 10, units 1 . STW to B UT, LS, SCM, paraspinals. Modalities: untimed minutes 15, units 1 . Intermittent Mechanical Traction: 20#/10# on 30/10 cycle x 15 mins 6step progressive/regressive. 'Scores and Scales' Signatures Electronically signed by : Eli Alexander PTA; Apr 09 2021 4:58PM EST (Author) Electronically signed by : Elana Westbrook, PT; Apr 15 2021 9:11AM EST [facility] Progress Noteon 1 PT Progress Note Therapy Diagnosis Assessed Cervical radiculopathy, acute (723.4) (M54.12) Plan Goals: Goals set and discussed today. STGs Pt will improve cervical AROM by >5 degrees from initial eval to increase ease with functional mobility Pt will demonstrate 4/10 pain or less with cervical rotation in order to increase ease with driving Pt will demonstrate a 10% improvement in NDI to demonstrate increased functional mobility Pt will demonstrate >=50% reduction of pain on average for easier adls Patient to have reduction in peripheral symptoms due to improved centralization for easier adls Patient to modify environment for easier adls and work as needed for reduction of pain LTGs Patient to have functional ROM in all planes without compensation for easier driving Patient will demonstrate not more than 2/10 pain with normal activity for easier adls Patient to report on average a 50% decrease in average pain levels through the day for easier home chores/tasks Patient to be I in knowledge and application of proper body mechanics Pt will improve cervical AROM by >10 degrees from initial eval to increase ease with functional mobility Planned interventions include: education/instruction, home program, manual therapy, mechanical traction, neuromuscular re-education, self care/home management and therapeutic exercises . can try mechanical traction intermittent x 20 mins with 30 secs on/20 off with lbs as tolerated. OPERATION AGENT can also manual distraction and soft tissue work also prn. Frequency and duration: 2 time(s) a week, for 4 weeks, for 8 visits. Potential to achieve rehab goals is good Plan to continue with manual therapy, and progress flexibility/postual strengthening as tolerated to reduce pain and improve ease/tolerance with daily activity. Assessment Patient ID confirmed using Name and . Patient wearing mask throughout session today d/t COVID-19 precautions. Patient continues to present with cervical tightness/restriction, OPERATION AGENT notes palpable increase in tissue density throughout R cervical parapsinals and R UT/LS. Adult Risk Screening There are no spiritual/cultural practices/values/needs that are important to know Initial Fall Risk Screening: RADHA has not fallen in the last 6 months. Her fall did not result in injury. RADHA does not have a fear of falling. She does not need assistance with sitting, standing or walking. Does not need assistance walking in her home. She does not need assistance in an unfamiliar setting. The patient is not using an assistive device. Pain Scale: On a scale of 0 to 10, the patient rates the pain at 7. Please identify location of pain: headache and neck pain. Pain Quality: burning and sharp. The pain makes it hard for the patient to do these things: exercise, sleep, house work and self-care (bathing, dressing, eating). Insurance Insurance reviewed Visit number: 4 Authorization not required after evaluation 01/1202-05-21 [place] cervicalgia/cervical radiculopathy precautions: needs inhaler, CKD stage 3. Rare deficiency cpt-2 - sugars aren't converted to protein so patient has to eat protein and low fat Onset Date: 2020 Subjective Patient reports:. patient having a killer headache upon arrival. Patient states that she didn?t have many headaches until starting PT and stirring up her neck. Home program performing as directed: Yes. Precautions: none. Fall Risk: none Treatment Time in clinic started at 1550 Time in clinic ended at 1648 Total time in clinic is 58 minutes. Therapeutic exercise (89039): timed minutes 30, units 2 . UBE L2 2'fwd/2'bwd scap retraction 2x10 bwd shoulder rolls 2x10 UT stretch 20 x2 B LS stretch 20 x2B chin tucks supine 2x10 3 hold cervical rotation supine x10 each supine B ER pull aparts orange x10 supine B H abd pull aparts orange x10. Manual Therapy (77959): timed minutes 10, units 1 . STW to B UT, LS, SCM, paraspinals. Modalities: untimed minutes 15, units 1 . Intermittent Mechanical Traction: 20#/10# on 30/10 cycle x 15 mins 6step progressive/regressive. 'Scores and Scales' Signatures Electronically signed by : River Sweeney PTA; Apr 01 2021 7:45AM EST (Author) Electronically signed by : Elana Westbrook PT; Apr 06 2021 3:40PM EST [facility] Therapy Communicationon - Therapy Communication Message RADHA SHAFER canceled today . Signatures Electronically signed by : Anjana Hernandez PTA; Mar 29 2021 2:14PM EST (Author) [facility] PT Progress Noteon 1 PT Progress Note Therapy Diagnosis Assessed Cervical radiculopathy, acute (723.4) (M54.12) Plan Goals: Goals set and discussed today. STGs Pt will improve cervical AROM by >5 degrees from initial eval to increase ease with functional mobility Pt will demonstrate 4/10 pain or less with cervical rotation in order to increase ease with driving Pt will demonstrate a 10% improvement in NDI to demonstrate increased functional mobility Pt will demonstrate >=50% reduction of pain on average for easier adls Patient to have reduction in peripheral symptoms due to improved centralization for easier adls Patient to modify environment for easier adls and work as needed for reduction of pain LTGs Patient to have functional ROM in all planes without compensation for easier driving Patient will demonstrate not more than 2/10 pain with normal activity for easier adls Patient to report on average a 50% decrease in average pain levels through the day for easier home chores/tasks Patient to be I in knowledge and application of proper body mechanics Pt will improve cervical AROM by >10 degrees from initial eval to increase ease with functional mobility Planned interventions include: education/instruction, home program, manual therapy, mechanical traction, neuromuscular re-education, self care/home management and therapeutic exercises . can try mechanical traction intermittent x 20 mins with 30 secs on/20 off with lbs as tolerated. OPERATION AGENT can also manual distraction and soft tissue work also prn. Frequency and duration: 2 time(s) a week, for 4 weeks, for 8 visits. Potential to achieve rehab goals is good Plan to continue with manual therapy and traction as indicated, progress postural strengthening and flexibility as tolerated to reduce pain and improve ease/tolerance with daily activity. Assessment Patient ID confirmed using Name and . Patient wearing mask throughout session today d/t COVID-19 precautions. Patient with good tolerance to treatment this date, without c/o increased pain/discomfort. Patient able to complete all exercises with appropriate level of challenge/difficulty. Patient continues to present with tightness and restriction in cervical musculature. Adult Risk Screening There are no spiritual/cultural practices/values/needs that are important to know Initial Fall Risk Screening: RADHA has not fallen in the last 6 months. Her fall did not result in injury. RADHA does not have a fear of falling. She does not need assistance with sitting, standing or walking. Does not need assistance walking in her home. She does not need assistance in an unfamiliar setting. The patient is not using an assistive device. Pain Scale: On a scale of 0 to 10, the patient rates the pain at 5. Please identify location of pain: base of neck and into R UE. Pain Quality: burning and sharp. The pain makes it hard for the patient to do these things: exercise, sleep, house work and self-care (bathing, dressing, eating). Insurance Insurance reviewed Visit number: 3 Authorization not required after evaluation 01/1202-05-21 [place] cervicalgia/cervical radiculopathy precautions: needs inhaler, CKD stage 3. Rare deficiency cpt-2 - sugars aren't converted to protein so patient has to eat protein and low fat Onset Date: 2020 Subjective Patient reports:. patient notes continued neck pain, felt better after traction but relief did not last very long. Home program performing as directed: Yes. Precautions: none. Fall Risk: none Treatment Time in clinic started at 1531 Time in clinic ended at 1630 Total time in clinic is 59 minutes. Total timed code time is 40 minutes. Therapeutic exercise (70632): timed minutes 30, units 2 . UBE L2 2'fwd/2'bwd scap retraction 2x10 bwd shoulder rolls 2x10 UT stretch 20 x2 B LS stretch 20 x2B chin tucks supine 2x10 3 hold cervical rotation supine x5 each supine B ER pull aparts orange x10 supine B H abd pull aparts orange x10. Manual Therapy (58211): timed minutes 10, units 1 . STW to B UT, LS, SCM, paraspinals. Modalities: untimed minutes 15, units 1 . Intermittent Mechanical Traction: 20#/10# on 30/10 cycle x 15 mins 6step progressive/regressive. 'Scores and Scales' Signatures Electronically signed by : River Sweeney PTA; Mar 26 2021 4:31PM EST (Author) Electronically signed by : Elana Westbrook PT; Mar 31 2021 11:38AM EST [facility] PT Progress Noteon 1 PT Progress Note Therapy Diagnosis Assessed Cervical radiculopathy, acute (723.4) (M54.12) Plan Goals: Goals set and discussed today. STGs Pt will improve cervical AROM by >5 degrees from initial eval to increase ease with functional mobility Pt will demonstrate 4/10 pain or less with cervical rotation in order to increase ease with driving Pt will demonstrate a 10% improvement in NDI to demonstrate increased functional mobility Pt will demonstrate >=50% reduction of pain on average for easier adls Patient to have reduction in peripheral symptoms due to improved centralization for easier adls Patient to modify environment for easier adls and work as needed for reduction of pain LTGs Patient to have functional ROM in all planes without compensation for easier driving Patient will demonstrate not more than 2/10 pain with normal activity for easier adls Patient to report on average a 50% decrease in average pain levels through the day for easier home chores/tasks Patient to be I in knowledge and application of proper body mechanics Pt will improve cervical AROM by >10 degrees from initial eval to increase ease with functional mobility Planned interventions include: education/instruction, home program, manual therapy, mechanical traction, neuromuscular re-education, self care/home management and therapeutic exercises . can try mechanical traction intermittent x 20 mins with 30 secs on/20 off with lbs as tolerated. OPERATION AGENT can also manual distraction and soft tissue work also prn. Frequency and duration: 2 time(s) a week, for 4 weeks, for 8 visits. Potential to achieve rehab goals is good Continue with cervical ROM and postural strengthening to improve ease with sleeping and ADL's. . Progress with POC, as tolerated. Assessment Fwd head and rounded shoulder posture, max cues to decrease UT elevation and increase scap retraction with postural strengthening. Completing ther ex, followed by manual STW followed by mechanical cervical traction. Increased tension and tissue restriction along R side of UT and suboccipital palpated with STw compared to L side. Decreased pain reported following mechanical traction. Adult Risk Screening There are no spiritual/cultural practices/values/needs that are important to know Initial Fall Risk Screening: RADHA has not fallen in the last 6 months. Her fall did not result in injury. RADHA does not have a fear of falling. She does not need assistance with sitting, standing or walking. Does not need assistance walking in her home. She does not need assistance in an unfamiliar setting. The patient is not using an assistive device. Pain Scale: On a scale of 0 to 10, the patient rates the pain at 5. Please identify location of pain: base of neck and into R UE. Pain Quality: burning and sharp. The pain makes it hard for the patient to do these things: exercise, sleep, house work and self-care (bathing, dressing, eating). Insurance Insurance reviewed Visit number: 2 Authorization not required after evaluation 12/1502-05-21 [place] cervicalgia/cervical radiculopathy precautions: needs inhaler, CKD stage 3. Rare deficiency cpt-2 - sugars aren't converted to protein so patient has to eat protein and low fat Onset Date: 2020 Subjective Patient reports:. Patient reports she can not sleep on her R side of her head, reports pain waking her several times a night. Reports she can not elevate her head if she is laying on her L side. Rates neck pain at base of neck 5/10 currently. Reports increase R UE sx into her bicep with turning her head to the right. Reports soreness following IE. Name and identified. Home program performing as directed: Yes. Precautions: none. Fall Risk: none Treatment Time in clinic started at 4:27 pm Time in clinic ended at 5:24 Total time in clinic is 57 minutes. Total timed code time is 38 minutes. Therapeutic exercise (80956): timed minutes 30, units 2 . UBE L2 2'fwd/2'bwd scap retraction 2x10 bwd shoulder rolls 2x10 UT stretch 20 x2 B LS stretch 20 x2B chin tucks supine 2x10 3 hold cervical rotation supine x5 each supine B ER pull aparts orange x10 supine B H abd pull aparts orange x10. Manual Therapy (02047): timed minutes 8, units 1 . STW to B UT, LS, SCM, paraspinals. Modalities: untimed minutes 14, units 1 . mechanical traction intermittent with 30 secs on/20 off with 20 lbs , 2 step, 50% rope speed. 'Scores and Scales' Signatures Electronically signed by : Anjana Hernandez OPERATION AGENT; Mar 24 2021 5:37PM EST (Author) Electronically signed by : Elana Westbrook PT; Mar 31 2021 11:38AM EST [facility] Initial Evaluationon 05 PT Initial Evaluation Therapy Diagnosis Assessed Cervical radiculopathy, acute (723.4) (M54.12) Plan of Care Goals: Goals set and discussed today. STGs Pt will improve cervical AROM by >5 degrees from initial eval to increase ease with functional mobility Pt will demonstrate 4/10 pain or less with cervical rotation in order to increase ease with driving Pt will demonstrate a 10% improvement in NDI to demonstrate increased functional mobility Pt will demonstrate >=50% reduction of pain on average for easier adls Patient to have reduction in peripheral symptoms due to improved centralization for easier adls Patient to modify environment for easier adls and work as needed for reduction of pain LTGs Patient to have functional ROM in all planes without compensation for easier driving Patient will demonstrate not more than 2/10 pain with normal activity for easier adls Patient to report on average a 50% decrease in average pain levels through the day for easier home chores/tasks Patient to be I in knowledge and application of proper body mechanics Pt will improve cervical AROM by >10 degrees from initial eval to increase ease with functional mobility Planned interventions include: education/instruction, home program, manual therapy, mechanical traction, neuromuscular re-education, self care/home management and therapeutic exercises . can try mechanical traction intermittent x 20 mins with 30 secs on/20 off with lbs as tolerated. OPERATION AGENT can also manual distraction and soft tissue work also prn. Frequency and duration: 2 time(s) a week, for 4 weeks, for 8 visits. Potential to achieve rehab goals is good Plan of care was developed with input and agreement by the patient. Assessment The patient presents to Physical Therapy with signs and symptoms consistent with the medical diagnosis of cervical radiculopathy-she also has recently had right shoulder bursitis. Lynne impairments include: decreased flexibility, decreased strength, decreased ROM, significant radicular pain control and difficulty with functional activities such as being upright and walking/standing to do household tasks when she has to turn her head or extend the head to watch TV. Skilled PT is required to address these lynne impairments and to provide and progress with an appropriate home exercise program-patient is at risk of worsening tightness with immobility. This evaluation is of min complexity due to the nature of the patient?s presentation as well as the comorbidities and medical factors included in this evaluation. Patient notes feeling better in the right c-spine at the end of today's evaluation and treatment session. Tolerance to today's treatment was good. Patient appears motivated and compliant this date, demonstrating a working understanding of principles instructed and home program. Patient education was provided on an intro hep as per HEP scanned section below . Clinical Presentation: Stable and/or uncomplicated characteristics. Level of Complexity: low Problem List: activity limitations, ADLs/IADLs/self care skills, decreased functional level, decreased knowledge of HEP, decreased knowledge of precautions, flexibility, motor function/control/tone, pain, participation restrictions, posture, strength and transfers. Reason For Visit Initial Evaluation . If tilts head on the right/elevates the head she gets cervical pain into the right shoulder-starts hurting the biceps and then the forearm. This has been going on for a while-s/p right RC repair with fall in May-she wonders if that was the shoulder-can't sleep and can't put the arm under the pillow. Patient was in PT with this PT in the past and the patient was seen for the right shoulder pain/bursitis. PT tried distraction to rule out the neck and patient report that gave her good relief of pain. She is now referred to trial traction. Patient has foot neuropathy-patient reports her feet respond to epson salt bath. Referred by: Jacoby Primary Care Physician: Jacoby Adult Risk Screening There are no spiritual/cultural practices/values/needs that are important to know Initial Fall Risk Screening: RADHA has not fallen in the last 6 months. Her fall did not result in injury. RADHA does not have a fear of falling. She does not need assistance with sitting, standing or walking. Does not need assistance walking in her home. She does not need assistance in an unfamiliar setting. The patient is not using an assistive device. Pain Scale: On a scale of 0 to 10, the patient rates the pain at 0. Please identify location of pain: 10/10 at end of night. Pain Quality: burning and sharp. The pain makes it hard for the patient to do these things: sleep and self-care (bathing, dressing, eating). Insurance Insurance reviewed Visit number: 1 Authorization not required after evaluation 11/1402-05-21 [facility] cervicalgia/cervical radiculopathy precautions: needs inhaler, CKD stage 3. Rare deficiency cpt-2 - sugars aren't converted (more content not included)... [facility] Therapy Communicationon 11-07 Therapy Communication Message RADHA SHAFER was (D/C)- last seen: . eval only-patient never called back to schedule, a VM was left at 1022am on 10-20-20. Will discharge at this [facility]. Signatures Electronically signed by : Elana Westbrook PT; Nov 25 2020 7:37AM EST (Author) [facility] [place] ORT LARGE JOINT ARTHROCEN TESISon 11-09-2020 John Marcial NP 11/09/2020 10:32 AM LG Jt Injection/Arthrocentesi s: R knee Performed by: Flori Rodrigues CNP Authorized by: Flori Rodrigues CNP CPT 73872 - Large Joint Arthrocentesis: Consent given by: Patient Time out: Immediately prior to the procedure a time out was called Physician or proceduralist has discussed critical or nonroutine steps, procedure duration and anticipated blood loss: Yes Supporting Documentation: Indications: Pain Procedure Details: Location: Knee Site: R knee Prep: patient was prepped and draped in usual sterile fashion Needle size: 22 G Approach: Anterolateral Medications: 1 mL dexamethasone 4 mg/mL, 1 mL triamcinolone acetonide 40 mg/mL Anesthetic used: Bupivacaine 0.5% and Lidocaine 1% Anesthetic amount (mL): 4 Patient tolerance: Patient tolerated the procedure well with no immediate complications [facility] XR Knee Right 4+VWS (Note in Comments)on 11-09-2020 No acute right knee abnormality. Degenerative joint disease findings are present. Previous left knee replacement is noted. [facility] Harry Workstation ID: [id number] [facility] EXAMINATION: XR KNEE RIGHT 4+ VIEWS (SPECIFY VIEWS IN COMMENTS) HISTORY: Right knee [id number] COMPARISON: Right knee 11/02/2020. TECHNIQUE: Erect AP and PA views of both knees with lateral, and patellar views of the right knee. FINDINGS: No fracture or dislocation is apparent. Degenerative joint disease findings are again seen with joint space narrowing periarticular spurring. This is again right knee moderately prominent medial and patellofemoral articulation and mild laterally. Previous left knee replacement is noted without evidence displacement disruption. [facility] [facility], Rad In Fu ji Speechq - 11/09/2020 11:05 AM EST EXAMINATION: XR KNEE RIGHT 4+ VIEWS (SPECIFY VIEWS IN COMMENTS) HISTORY: Right knee painR52 COMPARISON: Right knee 11/02/2020. TECHNIQUE: Erect AP and PA views of both knees with lateral, and patellar views of the right knee. FINDINGS: No fracture or dislocation is apparent. Degenerative joint disease findings are again seen with joint space narrowing periarticular spurring. This is again right knee moderately prominent medial and patellofemoral articulation and mild laterally. Previous left knee replacement is noted without evidence displacement disruption. IMPRESSION: No acute right knee abnormality. Degenerative joint disease findings are present. Previous left knee replacement is noted. RWA/ges Workstation ID: [id number] [facility] XR Knee Right 2 Views (Stand madeleine)on 11-02-2020 FINDINGS/ 1. Moderat e medial and patellofemoral compartment and mild lateral compartment osteoarthrosis is noted in the right knee, with joint space narrowing and small marginal osteophytes. Superior patellar enthesophyte is noted. 2. No fracture, malalignment, or other acute bony abnormality is seen. 3. Small right knee joint effusion is suspected. Workstation ID: [id number] [facility] EXAMINATION: XR KNEE RIGHT 2 VIEWS (STANDARD) 11/02/2020 1:48 pm HISTORY: ORDERING SYSTEM PROVIDED HISTORY: pain, TECHNOLOGIST PROVIDED HISTORY: Illness/Other Reason for exam: Right knee pain x 5 days Cancer History: thyroid Surgery, RadiationHistory: bilateral thyroidectomy Encounter Type: Initial Additional signs and symptoms: No known injury ORDERING SYSTEM PROVIDED DIAGNOSIS CODES: COMPARISON: 06/09/2013 [facility] Interface, Rad In ji Speech - 11/02/2020 2:04 PM EST EXAMINATION: XR KNEE RIGHT 2 VIEWS (STANDARD) 11/02/2020 1:48 pm HISTORY: ORDERING SYSTEM PROVIDED HISTORY: pain, TECHNOLOGIST PROVIDED HISTORY: Illness/Other Reason for exam: Right knee pain x 5 days Cancer History: thyroid Surgery, RadiationHistory: bilateral thyroidectomy Encounter Type: Initial Additional signs and symptoms: No known injury ORDERING SYSTEM PROVIDED DIAGNOSIS CODES: COMPARISON: 06/09/2013 IMPRESSION: FINDINGS/ 1. Moderate medial and patellofemoral compartment and mild lateral compartment osteoarthrosis is noted in the right knee, with joint space narrowing and small marginal osteophytes. Superior patellar enthesophyte is noted. 2. No fracture, malalignment, or other acute bony abnormality is seen. 3. Small right knee joint effusion is suspected. Workstation ID: [id number] [facility] PT Initial Evaluationon PT Initial Evaluation Therapy Diagnosis Assessed Adhesive bursitis of right shoulder (726.0) (M75.01) Plan of Care Goals: Goals set and discussed today. LTGs Independent with HEP for management of condition Decrease max pain to less than or equal to 1/10 for improved QOL Increase right shoulder AROM to greater than or equal to 165 flexion, 165 abduction, 90 ER, 80 IR for improved ability to reach overhead Increase right shoulder/postural muscle/UE strength to greater than or equal to 4+/5 throughout for lifting Decrease disability as assessed by QDASH to less than or equal to 10% disability for improved QOL Flexibility Increase pec, lat/bicep/subscapularis flexibility to good for easier lifting STGs min A with min v.c.'s with HEP for management of condition Decrease max pain to less than or equal to 5/10 for improved QOL Increase right shoulder AROM to greater than or equal to 120 flexion, 120 abduction, 80 ER, 60 IR for improved ability to reach overhead Increase right shoulder/postural muscle/UE strength to greater than or equal to 4-/5 throughout for lifting Decrease disability as assessed by QDASH by 5% disability for improved QOL Planned interventions include: edema control, education/instruction, electrical stimulation, home program, hot pack, kinesiotaping, manual therapy, neuromuscular re-education, self care/home management, therapeutic activities, therapeutic exercises, ultrasound, vasopneumatic device and vasopneumatic device w/ cold . The Physical Therapist (PT) of record is the therapist who assumes primary responsibility for the patient management and as such is held accountable for the coordination, continuation, and progression of the plan of care. This patient?s care and PT of record will be transferred from Elana Westbrook PT to Kenyatta Calloway as of 10-08-2020 . Frequency and duration: 3 time(s) a week, for 8 weeks, for 24 visits. Potential to achieve rehab goals is good Plan of care was developed with input and agreement by the patient. Assessment Patient reports having increased pain from the right shoulder developing frozen shoulder possibly related to rotator cuff injury or neck involvement. Patient has some limitation in a capsular pattern, but with traction, patient's pain decreases and patient is able to move the right arm more. PT thinks there is a definite neck component affecting the right shoulder musculature and likely leading to rotator cuff inhibition and shoulder pain/reduced ROM occurring leading to a secondary frozen shoulder. Clinical Presentation: Stable and/or uncomplicated characteristics. Level of Complexity: low Problem List: activity limitations, ADLs/IADLs/self care skills, aerobic capacity/endurance, coordination, decreased functional level, decreased knowledge of HEP, dizziness/vertigo, flexibility, motor function/control/tone, pain, participation restrictions, range of motion/joint mobility, sensory and strength. Reason For Visit Initial Evaluation . Patient reports she doesn't go out much due to fear of COVID. Patient has COPD that is bad and patient plans to do a nebulizer treatment at home after PT. Patient with difficulty just walking 110' back to the treatment area. Referred by: Dr. Jules Primary Care Physician: unknown Patient is referred to PT by Dr. Jules. Patient with right shoulder pain s/p falling down stairs. Patient has had a prior cuff repair on the right. Patient also fell over a firepit outside. Adult Risk Screening There are no spiritual/cultural practices/values/needs that are important to know Initial Fall Risk Screening: RADHA has fallen in the last 6 months. Her fall resulted in the following injury: . Fall Risk Screening: Patient is identified as a fall risk. Care Plan: Moderate Risk: Low risk interventions plus: do not leave patient on exam table unattended, supervised activity, educate patient/family on falls prevention, review safety initiatives with patient/family, family at bedside as allowed, yellow falls risk band, focus rounding attention, locate patient in area of high visibility, wheelchair, bed, or personal alarm, bedside commode, elevated toilet seat and pharmacy consult for medication concerns. Pain Scale: On a scale of 0 to 10, the patient rates the pain at 5. Please identify location of pain: average a little sore in a.m., raising to 50 feels in biceps and shoulder-mild, but by end of day 9/10-unsure if neck or shoulder. Pain Quality: aching. Insurance Insurance reviewed Visit number: 1 M75.[address] caps[address]itis. Dr[address] Jules patient is eval only precautions: needs inhaler, CKD stage 3. Rare deficiency cpt-2 - sugars aren't converted to protein so patient has to eat protein and low fat Onset Date: 2019 Subjective Current Episode of Functional Impairment and/or Pain Date of onset: 09/15/20 Mechanism of Injury:. 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 (more content not included)... Normal [facility] ORT LARGE JOINT ARTHROCEN TESISon 09-15-2020 Rivas Jules MD 09/15/2020 3:06 PM LG Jt Injection/Arthrocentesi s: R subacromial bursa Performed by: Rivas Jules MD Authorized by: Rivas Jules MD CPT 28321 - Large Joint Arthrocentesis: Consent given by: Patient Timeout performed at: 09/15/2020 3:05 PM Physician or proceduralist has discussed critical or nonroutine steps, procedure duration and anticipated blood loss: Yes Supporting Documentation: Indications: Pain Procedure Details: Location: Shoulder Site: R subacromial bursa Needle size: 22 G Medications: 40 mg methylPREDNISolone acetate 40 mg/mL Anesthetic used: Lidocaine 1% [facility] XR Shoulder Right 1 Viewon 1 11-15-2019 Postsurgical and degenerative changes without acute osseous abnormality. Workstation ID: [id number] [facility] EXAMINATION: XR SHOULDER RIGHT 1 VIEW 09/15/2020 2:47 pm HISTORY: ORDERING SYSTEM PROVIDED HISTORY: pain, TECHNOLOGIST PROVIDED HISTORY: Illness/Other Reason for exam: Rt. Shoulder pain x 1 month after falling Cancer History: thyroid Surgery, RadiationHistory: bilateral thyroidectomy Encounter Type: Subsequent/Follow-up Additional signs and symptoms: un ORDERING SYSTEM PROVIDED DIAGNOSIS CODES: R52 Pain COMPARISON: None FINDINGS: There is no acute displaced fracture. There are postsurgical changes from prior rotator cuff repair. Mild osteoarthritis of the acromioclavicular joint. There is also a developing subacromial spur. Calcifications overlie the right hemithorax. [facility] Interface, Rad In Fu ji Speechq - 09/15/2020 4:22 PM EST EXAMINATION: XR SHOULDER RIGHT 1 VIEW 09/15/2020 2:47 pm HISTORY: ORDERING SYSTEM PROVIDED HISTORY: pain, TECHNOLOGIST PROVIDED HISTORY: Illness/Other Reason for exam: Rt. Shoulder pain x 1 month after falling Cancer History: thyroid Surgery, RadiationHistory: bilateral thyroidectomy Encounter Type: Subsequent/Follow-up Additional signs and symptoms: un ORDERING SYSTEM PROVIDED DIAGNOSIS CODES: R52 Pain COMPARISON: None FINDINGS: There is no acute displaced fracture. There are postsurgical changes from prior rotator cuff repair. Mild osteoarthritis of the acromioclavicular joint. There is also a developing subacromial spur. Calcifications overlie the right hemithorax. IMPRESSION: Postsurgical and degenerative changes without acute osseous abnormality. Workstation ID: [id number] [facility] Ultrasound ankle / brachial indices extremity completeon 05-15-2020 Patient Info Name: RADHA SHAFER Age: 60 years : 1960 Gender: Female Exam Date: 05/15/2020 2:11 PM Site Location: [facility] Patient Status: Outpatient Staff Ordering Physician: ELANA PENA Care Management Associate: Kia Peacock RVT Referring Physician: ELANA PENA ; Indications I73.9 - Peripheral vascular disease, unspecified Procedure Description 04806 Limited bilateral noninvasive physiologic studies of upper or lower extremity arteries with bidirectional Doppler/PVR waveform analysis at 1-2 levels. Conclusions * Right. * Right ankle brachial index is normal. * No evidence of small vessel disease at the transmetatarsal level(s) in the right foot. * Right toe brachial index is abnormal. * Left. * Left ankle brachial index is normal. * No evidence of small vessel disease at the transmetatarsal level(s) in the left foot. * Left toe brachial index is abnormal. . Doppler Rt Posterior Tibial: Triphasic Rt Dorsalis Pedis: Triphasic Lt Posterior Tibial: Triphasic Lt Dorsalis Pedis: Biphasic PVR Rt Ankle: Normal Lt Ankle: Normal Rt Digit: Diminished Lt Digit: Diminished Rt Brachial: 143 Rt Posterior Tibial: 148 Rt Dorsalis Pedis: 143 Rt Digit: 106 1.03 1.00 0.74 Lt Brachial: 141 Lt Posterior Tibial: 145 Lt Dorsalis Pedis: 127 Lt Digit: 88 1.01 0.89 0.62 Risk Factors Patient has a history of hypertension and tobacco use-previous. . Report Signatures Finalized by Oscar Jacobsen MD, RPVI on 05/15/2020 05:02 PM [facility] Interface, Rad In Heartlab Xper Echopacs - 05/15/2020 5:03 PM EDT Patient Info Name: RADHA SHAFER Age: 60 years : 1960 Gender: Female Exam Date: 05/15/2020 2:11 PM Site Location: [facility] Patient Status: Outpatient Staff Ordering Physician: ELANA PENA Care Management Associate: Kia Peacock RVT Referring Physician: ELANA PENA ; Indications I73.9 - Peripheral vascular disease, unspecified Procedure Description 53997 Limited bilateral noninvasive physiologic studies of upper or lower extremity arteries with bidirectional Doppler/PVR waveform analysis at 1-2 levels. Conclusions * Right. * Right ankle brachial index is normal. * No evidence of small vessel disease at the transmetatarsal level(s) in the right foot. * Right toe brachial index is abnormal. * Left. * Left ankle brachial index is normal. * No evidence of small vessel disease at the transmetatarsal level(s) in the left foot. * Left toe brachial index is abnormal. . Doppler Rt Posterior Tibial: Triphasic Rt Dorsalis Pedis: Triphasic Lt Posterior Tibial: Triphasic Lt Dorsalis Pedis: Biphasic PVR Rt Ankle: Normal Lt Ankle: Normal Rt Digit: Diminished Lt Digit: Diminished Rt Brachial: 143 Rt Posterior Tibial: 148 Rt Dorsalis Pedis: 143 Rt Digit: 106 1.03 1.00 0.74 Lt Brachial: 141 Lt Posterior Tibial: 145 Lt Dorsalis Pedis: 127 Lt Digit: 88 1.01 0.89 0.62 Risk Factors Patient has a history of hypertension and tobacco use-previous. . Report Signatures Finalized by Oscar Jacobsen MD, RPVI on 05/15/2020 05:02 PM [facility] XR Foot 3+ Views Righton XR Foot 3+ Views Right Exam Date/Time: 07/24/2019 16:05 EDT Reason for Exam: pain in right foot Report STUDY: XR Foot 3+ Views Right; 07/24/2019 4:05 pm INDICATION: pain in right foot. COMPARISON: None. ACCESSION NUMBER(S): [id number] ORDERING CLINICIAN: Rusty Dozier TECHNIQUE: Three views of the right foot including AP, oblique and lateral projections were obtained. FINDINGS: There is no radiographic evidence of acute fracture or dislocation identified. Mild hypertrophic degenerative changes are seen in the 2nd and 3rd tarsometatarsal articulations. IMPRESSION: 1. No acute fracture or dislocation identified. 2. Degenerative changes, as described above. FINAL REPORT Dictated: 07/25/2019 8:51 am Uriah Elizalde MD Signed (Electronic Signature): 07/25/2019 8:51 am Signed by: Uriah Elizalde MD Technologist: [facility] ECHOCARDIOGRAM COMPLETEon Transthoracic Echocardiogram _ Patient: HOLLIS Benitez Med Rec#: [id number] (Age): 1960(59y) Height: 165.1(cm)/64(in Study Date: 05/07/2019 Weight: 93.44(kg)/206(l Room#: MOB BSA: [id number] Type: Outpatient Loc: Echo Room 1 Sex: F _ Reading: Eleonora Sawyer MD Referring: WHITLEY Kaufman M.D. Care Management Associate: Rina Shay RN, [facility] History: Cancer. -thyroidCOPD. Hypertension. Hypothyroidism. Renal insufficiency. Sleep apnea. Summary: Patient identity verified (pause and confirm). Current HP present on patient chart. Procedure explained and patient verified understanding. Consent obtained for procedure. Conclusions: Normal left ventricular size and systolic function, estimated LVEF 55-60%. Impaired LV relaxation. Normal right ventricular size and systolic function. No hemodynamically significant valvular disease. No pericardial effusion. Findings Reason For Study: Cardiomyopathy. Left Ventricle: The left ventricular chamber size is normal. Global left ventricular wall motion and contractility are within normal limits. There is normal left ventricular systolic function. The estimated ejection fraction is 55-60%. The diastolic filling pattern is consistent with impaired relaxation and normal LA pressure (Mild diastolic dysfunction). Left Atrium: The left atrial chamber size is normal. Right Ventricle: The right ventricular cavity size is normal. The right ventricular global systolic function is normal. Right Atrium: The right atrial cavity size is normal. Aortic Valve: The aortic valve is trileaflet. There is no hemodynamically significant stenosis. There is no evidence of aortic regurgitation. Mitral Valve: The mitral valve leaflets appear normal. There is no evidence of mitral stenosis. There is a trace of mitral regurgitation. Tricuspid Valve: The tricuspid valve leaflets are normal. There is no tricuspid stenosis. There is a trace tricuspid regurgitation. Unable to estimate the right ventricular systolic pressure. Pulmonic Valve: The pulmonic valve appears normal. There is no pulmonic stenosis. There is no evidence of pulmonic regurgitation. Pericardium: There is no pericardial effusion. A pericardial fat pad is visualized. Aorta: The aortic root is normal in diameter. Venous: The inferior vena cava appears normal in size. HR BP 145/76 Measurements Chambers 2D Name Value Normal Range RVIDd (AP) 2D 3.57 cm none RVIDd (2D) index 1.78 cm/m2 none IVSd (2D) 1.11 cm none LVPWd (2D) 1.14 cm none IVS:LVPW ratio (2D) 0.98 ratio none LVIDd (2D) 4.49 cm none LVIDs (2D) 3.16 cm none LVIDd (2D) index 2.24 cm/m2 none LVIDs (2D) index 1.58 cm/m2 none LV FS (2D) 29.63 % none EF Teichholz (2D) 56.81 % none Ao root diameter 2.8 cm none Ao root diameter index 1.4 cm/m2 none Volumes/Mass Name Value Normal Range LA ESV SP 4CH (A/L) 45.51 ml none LA ESV SP 2CH (A/L) 52.12 ml none LA ESV BP (A/L) 50 ml none LA ESV BP (A/L) index 24.96 ml/m2 none LA ESV SP 4CH (MOD) 41.15 ml none LA ESV SP 2CH (MOD) 49.78 ml none LV EDV SP 4CH (MOD) 107.27 ml none LV ESV SP 4CH (MOD) 44.77 ml none EF SP 4CH (MOD) 58.26 % none LV EDV SP 2CH (MOD) 105.01 ml none LV ESV SP 2CH (MOD) 46.26 ml none EF SP 2CH (MOD) 55.94 % none LV EDV BP 108.78 ml none LV ESV BP 46.87 ml none BP EF (MOD) 56.92 % none LV EDV BP index 54.31 ml/m2 none LV ESV BP index 23.4 ml/m2 none LV mass (2D) 179.62 g none LV mass (2D) index 89.67 g/m2 none RWT 0.51 ratio none Diastolic/Systolic Function Name Value Normal Range MV E-wave Vmax 0.7 m/sec none MV deceleration time 99.79 msec none MV A-wave Vmax 0.88 m/sec none MV E:A ratio 0.79 ratio (1.1 - 1.5) LV septal e' Vmax 0.07 m/sec none LV lateral e' Vmax 0.08 m/sec none LV average e' Vmax 0.08 m/sec none LV E:e' septal ratio 9.93 ratio none LV E:e' lateral ratio 8.69 ratio none LV average E:e' ratio 9.27 ratio none TAPSE 1.9 cm none Aortic Valve Name Value Normal Range AV Vmax 1.12 m/sec (1 - 1.7) AV VTI 15.9 cm none AV peak gradient 5.01 mmHg (Less Than 36) AV mean gradient 2.46 mmHg (Less Than 20) LVOT diameter 2.24 cm (1.7 - 2.5) LVOT Vmax 0.86 m/sec (0.7 - 1.1) LVOT VTI 11.52 cm none LVOT peak gradient 2.98 mmHg none LVOT mean gradient 1.47 mmHg none DOI (VTI) 0.72 ratio none DOI (Vmax) 0.77 ratio none SV LVOT 45.39 ml none ILSA (continuity Vmax) 3.04 cm2 none ILSA (continuity Vmax) index 1.52 cm2/m2 none ILSA (continuity VTI) 2.85 cm2 none ILSA (continuity VTI) index 1.43 cm2/m2 none Mitral Valve Name Value Normal Range MV Vmax 0.92 m/sec (0.6 - 1.3) MV VTI 11.63 cm none MV peak gradient 3.35 mmHg none MV mean gradient 1.21 mmHg none MV PHT 49.21 msec none MVA (PHT) 4.47 cm2 none MVA (continuity VTI) 3.9 cm2 none Pulmonic Valve/Qp:Qs Name Value Normal Range PV Vmax 0.92 m/sec (0.6 - 0.9) PV VTI 13.25 cm none PV peak gradient 3.37 mmHg none PV mean gradient 1.99 mmHg none Electronically Signed at 05/07/2019 16:22:37 by: Eleonora Sawyer MD [facility], Rad In Heartlab Xper Echopacs - 05/07/2019 4:40 PM EDT Transthoracic Echocardiogram _ Patient: HOLLIS Benitez [facility] Rec#: [id number] (Age): 1960(59y) Height: 165.1(cm)/64(in Study Date: 05/07/2019 Weight: 93.44(kg)/206(l Room#: MOB BSA: [id number] Type: Outpatient Loc: Echo Room 1 Sex: F _ Reading: Eleonora Sawyer MD Referring: WHITLEY Kaufman M.D. Care Management Associate: Rina Shay RN, [facility]INA History: Cancer. -thyroidCOPD. Hypertension. Hypothyroidism. Renal insufficiency. Sleep apnea. Summary: Patient identity verified (pause and confirm). Current HP present on patient chart. Procedure explained and patient verified understanding. Consent obtained for procedure. Conclusions: Normal left ventricular size and systolic function, estimated LVEF 55-60%. Impaired LV relaxation. Normal right ventricular size and systolic function. No hemodynamically significant valvular disease. No pericardial effusion. Findings Reason For Study: Cardiomyopathy. Left Ventricle: The left ventricular chamber size is normal. Global left ventricular wall motion and contractility are within normal limits. There is normal left ventricular systolic function. The estimated ejection fraction is 55-60%. The diastolic filling pattern is consistent with impaired relaxation and normal LA pressure (Mild diastolic dysfunction). Left Atrium: The left atrial chamber size is normal. Right Ventricle: The right ventricular cavity size is normal. The right ventricular global systolic function is normal. Right Atrium: The right atrial cavity size is normal. Aortic Valve: The aortic valve is trileaflet. There is no hemodynamically significant stenosis. There is no evidence of aortic regurgitation. Mitral Valve: The mitral valve leaflets appear normal. There is no evidence of mitral stenosis. There is a trace of mitral regurgitation. Tricuspid Valve: The tricuspid valve leaflets are normal. There is no tricuspid stenosis. There is a trace tricuspid regurgitation. Unable to estimate the right ventricular systolic pressure. Pulmonic Valve: The pulmonic valve appears normal. There is no pulmonic stenosis. There is no evidence of pulmonic regurgitation. Pericardium: There is no pericardial effusion. A pericardial fat pad is visualized. Aorta: The aortic root is normal in diameter. Venous: The inferior vena cava appears normal in size. HR BP 145/76 Measurements Chambers 2D Name Value Normal Range RVIDd (AP) 2D 3.57 cm none RVIDd (2D) index 1.78 cm/m2 none IVSd (2D) 1.11 cm none LVPWd (2D) 1.14 cm none IVS:LVPW ratio (2D) 0.98 ratio none LVIDd (2D) 4.49 cm none LVIDs (2D) 3.16 cm none LVIDd (2D) index 2.24 cm/m2 none LVIDs (2D) index 1.58 cm/m2 none LV FS (2D) 29.63 % none EF Teichholz (2D) 56.81 % none Ao root diameter 2.8 cm none Ao root diameter index 1.4 cm/m2 none Volumes/Mass Name Value Normal Range LA ESV SP 4CH (A/L) 45.51 ml none LA ESV SP 2CH (A/L) 52.12 ml none LA ESV BP (A/L) 50 ml none LA ESV BP (A/L) index 24.96 ml/m2 none LA ESV SP 4CH (MOD) 41.15 ml none LA ESV SP 2CH (MOD) 49.78 ml none LV EDV SP 4CH (MOD) 107.27 ml none LV ESV SP 4CH (MOD) 44.77 ml none EF SP 4CH (MOD) 58.26 % none LV EDV SP 2CH (MOD) 105.01 ml none LV ESV SP 2CH (MOD) 46.26 ml none EF SP 2CH (MOD) 55.94 % none LV EDV BP 108.78 ml none LV ESV BP 46.87 ml none BP EF (MOD) 56.92 % none LV EDV BP index 54.31 ml/m2 none LV ESV BP index 23.4 ml/m2 none LV mass (2D) 179.62 g none LV mass (2D) index 89.67 g/m2 none RWT 0.51 ratio none Diastolic/Systolic Function Name Value Normal Range MV E-wave Vmax 0.7 m/sec none MV deceleration time 99.79 msec none MV A-wave Vmax 0.88 m/sec none MV E:A ratio 0.79 ratio (1.1 - 1.5) LV septal e' Vmax 0.07 m/sec none LV lateral e' Vmax 0.08 m/sec none LV average e' Vmax 0.08 m/sec none LV E:e' septal ratio 9.93 ratio none LV E:e' lateral ratio 8.69 ratio none LV average E:e' ratio 9.27 ratio none TAPSE 1.9 cm none Aortic Valve Name Value Normal Range AV Vmax 1.12 m/sec (1 - 1.7) AV VTI 15.9 cm none AV peak gradient 5.01 mmHg (Less Than 36) AV mean gradient 2.46 mmHg (Less Than 20) LVOT diameter 2.24 cm (1.7 - 2.5) LVOT Vmax 0.86 m/sec (0.7 - 1.1) LVOT VTI 11.52 cm none LVOT peak gradient 2.98 mmHg none LVOT mean gradient 1.47 mmHg none DOI (VTI) 0.72 ratio none DOI (Vmax) 0.77 ratio none SV LVOT 45.39 ml none ILSA (continuity Vmax) 3.04 cm2 none ILSA (continuity Vmax) index 1.52 cm2/m2 none ILSA (continuity VTI) 2.85 cm2 none ILSA (continuity VTI) index 1.43 cm2/m2 none Mitral Valve Name Value Normal Range MV Vmax 0.92 m/sec (0.6 - 1.3) MV VTI 11.63 cm none MV peak gradient 3.35 mmHg none MV mean gradient 1.21 mmHg none MV PHT 49.21 msec none MVA (PHT) 4.47 cm2 none MVA (continuity VTI) 3.9 cm2 none Pulmonic Valve/Qp:Qs Name Value Normal Range PV Vmax 0.92 m/sec (0.6 - 0.9) PV VTI 13.25 cm none PV peak gradient 3.37 mmHg none PV mean gradient 1.99 mmHg none Electronically Signed at 05/07/2019 16:22:37 by: Eleonora Sawyer MD [facility] Otheron 05-07-2019 Extra Tube Hold for add-ons. [facility] Comment on above: Auto resulted. ECG 12-LEADon 04-05-2019 Atrial Rate [facility] P [place] [facility] P-R Interval [facility] Q-T Interval [facility] Q-T Interval (corrected) [facility] QRS Duration [facility] QTC Calculation (Bezet) O hiKSeal R [place] [facility] T [place] [facility] Ventricular Rate [facility] Albuminon 02-13-2019 Albumin [Mass/Vol] 4.0 g/dL Normal 3.4-5.0 [facility] Comment on above: Performed By: #### 2 [id number] #### [employer] [address] [place] [address] BUNon 02-13-2019 Urea nitrogen [Mass/Vol] 23 mg/dL Normal 6-23 [facility] Comment on above: Performed By: #### 2 [id number] #### [employer] [address] [place] [id number] Calciumon 02-13-2019 Calcium [Mass/Vol] 9.1 mg/dL Normal 8.6-10.3 [facility] Comment on above: Performed By: #### 2 [id number] #### [employer] [address] [place] [id number] Creatinineon 02-13-2019 Creatinine [Mass/Vol] 1.4 mg/dL High 0.5-1.[address] [facility] Comment on above: Performed By: #### 2 [id number] #### [employer] [address] [place] [id number] Hct & Hgbon 02-13-2019 Hematocrit (Bld) [Volume fraction] 38.3 % Normal 36.0-48.0 [facility] Comment on above: Performed By: #### 1 [id number] #### [employer] [address] [place] [address] Hemoglobin (Bld) [Mass/Vol] 12.1 g/dL Normal 12.0-16.0 [facility] Comment on above: Performed By: #### 1 [id number] #### [employer] [address] [place] [address] Lyteson 02-13-2019 Anion gap [Moles/Vol] 11 mmol/L Normal 10-[address] [facility] Comment on above: Performed By: #### 2 [id number] #### [employer] [address] [place] [address] Chloride [Moles/Vol] 103 mmol/L Normal 98-107 [facility] Comment on above: Performed By: #### 2 [id number] #### [employer] [address] [place] [address] CO2 [Moles/Vol] 28.0 mmol/L Normal 21.0-32.[address] [facility] Comment on above: Performed By: #### 2 [id number] #### [employer] [address] [place] [address] Potassium [Moles/Vol] 4.8 mmol/L Normal 3.5-5.[address] [facility] Comment on above: Performed By: #### 2 [id number] #### [employer] [address] [place] [address] Sodium [Moles/Vol] 137 mmol/L Normal 136-145 [facility] Comment on above: Performed By: #### 2 [id number] #### [employer] [address] [place] [address] Phosphoruson 02-13-2019 Phosphate [Mass/Vol] 4.0 mg/dL Normal 2.5-4.9 [facility] Comment on above: Performed By: #### 2 [id number] #### [employer] [employer] [address] [place] [address] U Creatinineon 02-13-2019 U Creatinine 39 mg/dL Normal 20-300 [facility] Comment on above: Performed By: #### 2 [id number] #### [employer] [address] [place] [address] U Proteinon 02-13-2019 Protein [Mass/Vol] 18 mg/dL High 1-14 [facility] Comment on above: Performed By: #### 1 [id number] #### [employer] [address] [place] [address] eGFRon 02-13-2019 GFR/1.73 sq M predicted among non-blacks MDRD (S/P/Bld) [Vol rate/Area] 45 mL/min/1.73 m2 [facility] Comment on above: Order Comment: Order added by Discern Expert. Performed By: #### 1 [id number] #### [employer] [address] [place] [address] GFR/1.73 sq M predicted among non-blacks MDRD (S/P/Bld) [Vol rate/Area] 37 mL/min/1.73 m2 [facility] Comment on above: Order Comment: Order added by Discern Expert. Performed By: #### 1 [id number] #### [employer] [employer] [facility] [place] [address] XR Hip 2-3 Views Right + Pel vison 01-24-2019 XR Hip 2-3 Views Right + Pelvis Exam Date/Time: 01/23/2019 13:20 EDT Reason for Exam: pain in right hip Report STUDY: XR Hip 2-3 Views Right + Pelvis;; 01/23/2019 1:20 pm INDICATION: pain in right hip. COMPARISON: None. ACCESSION NUMBER(S): [id number] ORDERING CLINICIAN: Rusty Dozier FINDINGS: Pelvis and right hip: The right hip joint space is normal. The head, neck and trochanters of the right femur are intact. A spur is seen, from the greater trochanter. The pelvic bones are intact. Degenerative disc disease is noted at the lumbosacral junction. IMPRESSION: No acute pathology. FINAL REPORT Dictated: 01/24/2019 4:21 pm Jair Santos MD Signed (Electronic Signature): 01/24/2019 4:21 pm Signed by: Jair Santos MD Technologist: HLR Normal [facility] Comprehensive Metabolic Pane jett 12-01-2018 Albumin mass conc 3.0 g/dL Low 3.2-5.2 [facility] Comment on above: Performed By: #### C BCWOD, PT, PTT, DDIMR, EDCTNI, NTPROBNP, CHEM8, LIPASE, CMETADD #### Unless otherwise noted, all testing performed by [place] [address] CLIA: [id number] Construction Plumber: Maurice Coello M.D. ALP enzyme act/vol 88 U/L Normal 40-150 [facility] Comment on above: Performed By: #### C BCWOD, PT, PTT, DDIMR, EDCTNI, NTPROBNP, CHEM8, LIPASE, CMETADD #### Unless otherwise noted, all testing performed by [place] [address] CLIA: [id number] Construction Plumber: Maurice Coello M.D. ALT enzyme act/vol 34 U/L Normal 14-65 [facility] Comment on above: Result Comment: This test result might be falsely depressed or falsely elevated on samples drawn from patients taking Sulfasalazine and Sulfapyridine. Venipuncture should occur prior to taking either of these drugs. Performed By: #### C BCWOD, PT, PTT, DDIMR, EDCTNI, NTPROBNP, CHEM8, LIPASE, CMETADD #### Unless otherwise noted, all testing performed by [place] [address] CLIA: [id number] Construction Plumber: Maurice Coello M.D. AST enzyme act/vol 67 U/L High 0-45 [facility] Comment on above: Result Comment: This test result might be falsely depressed or falsely elevated on samples drawn from patients taking Sulfasalazine and Sulfapyridine. Venipuncture should occur prior to taking either of these drugs. Performed By: #### C BCWOD, PT, PTT, DDIMR, EDCTNI, NTPROBNP, CHEM8, LIPASE, CMETADD #### Unless otherwise noted, all testing performed by [place] [address] CLIA: [id number] Construction Plumber: Maurice Coello M.D. Bilirubin mass conc 0.3 mg/dL Normal 0.3-1.2 [facility] Comment on above: Performed By: #### C BCWOD, PT, PTT, DDIMR, EDCTNI, NTPROBNP, CHEM8, LIPASE, CMETADD #### Unless otherwise noted, all testing performed by [place] [phone] CLIA: [id number] Construction Plumber: Maurice Colelo M.D. Calcium mass conc 8.6 mg/dL Normal 8.4-10.2 [facility] Comment on above: Performed By: #### C BCWOD, PT, PTT, DDIMR, EDCTNI, NTPROBNP, CHEM8, LIPASE, CMETADD #### Unless otherwise noted, all testing performed by [place] [address] CLIA: [id number] Construction Plumber: Maurice Coello M.D. Chloride molar conc 112 mmol/L High 98-108 [facility] Comment on above: Performed By: #### C BCWOD, PT, PTT, DDIMR, EDCTNI, NTPROBNP, CHEM8, LIPASE, CMETADD #### Unless otherwise noted, all testing performed by [place] [address] CLIA: [id number] Construction Plumber: Maurice Coello M.D. CO2 molar conc 21 mmol/L Normal 21-32 [facility] Comment on above: Performed By: #### C BCWOD, PT, PTT, DDIMR, EDCTNI, NTPROBNP, CHEM8, LIPASE, CMETADD #### Unless otherwise noted, all testing performed by [place] [address] CLIA: [id number] Construction Plumber: Maurice Coello M.D. Creatinine mass conc 1.28 mg/dL High 0.40-1.10 [facility] Comment on above: Performed By: #### C BCWOD, PT, PTT, DDIMR, EDCTNI, NTPROBNP, CHEM8, LIPASE, CMETADD #### Unless otherwise noted, all testing performed by [place] [address] CLIA: [id number] Construction Plumber: Maurice Coello M.D. GFR/1.73 sq M predicted among blacks MDRD vol rate/area (S/P/Bld) 51 mL/min/{1.73_m2} Low >60 [facility] Comment on above: Result Comment: Afri can Belgian GFR Calc Performed By: #### C BCWOD, PT, PTT, DDIMR, EDCTNI, NTPROBNP, CHEM8, LIPASE, CMETADD #### Unless otherwise noted, all testing performed by [place] [address] CLIA: [id number] Construction Plumber: Maurice Coello M.D. GFR/1.73 sq M predicted among non-blacks MDRD vol rate/area (S/P/Bld) 42 mL/min/{1.73_m2} Low >60 [facility] Comment on above: Result Comment: Non- GFR Calc eGFR is an estimated Glomerular Filtration Rate based on the value of the patient's serum creatinine. In outpatients, eGFR should be used as a helpful tool in screening for CKD. In inpatients or patients with acute renal failure, eGFR represents the GFR at the moment of the draw and should be used with caution. Performed By: #### C BCWOD, PT, PTT, DDIMR, EDCTNI, NTPROBNP, CHEM8, LIPASE, CMETADD #### Unless otherwise noted, all testing performed by [place] [address] CLIA: [id number] Construction Plumber: Maurice Coello M.D. Glucose mass conc 88 mg/dL Normal 70-99 [facility] Comment on above: Result Comment: This test result might be falsely depressed or falsely elevated on samples drawn from patients taking Sulfasalazine and Sulfapyridine. Venipuncture should occur prior to taking either of these drugs. Performed By: #### C BCWOD, PT, PTT, DDIMR, EDCTNI, NTPROBNP, CHEM8, LIPASE, CMETADD #### Unless otherwise noted, all testing performed by [place] [address] CLIA: [id number] Construction Plumber: Maurice Coello M.D. Potassium molar conc 4.0 mmol/L Normal 3.5-5.1 [facility] Comment on above: Performed By: #### C BCWOD, PT, PTT, DDIMR, EDCTNI, NTPROBNP, CHEM8, LIPASE, CMETADD #### Unless otherwise noted, all testing performed by [place] [address] CLIA: [id number] Construction Plumber: Maurice Coello M.D. Protein mass conc 7.0 g/dL Normal 6.0-8.0 [facility] Comment on above: Performed By: #### C BCWOD, PT, PTT, DDIMR, EDCTNI, NTPROBNP, CHEM8, LIPASE, CMETADD #### Unless otherwise noted, all testing performed by [place] [address] CLIA: [id number] Construction Plumber: Maurice Coello M.D. Sodium molar conc 139 mmol/L Normal 135-145 [facility] Comment on above: Performed By: #### C BCWOD, PT, PTT, DDIMR, EDCTNI, NTPROBNP, CHEM8, LIPASE, CMETADD #### Unless otherwise noted, all testing performed by [place] [address] CLIA: [id number] Construction Plumber: Maurice Coello M.D. Urea nitrogen mass conc 7 mg/dL Low 8-25 O [facility] Comment on above: Performed By: #### C BCWOD, PT, PTT, DDIMR, EDCTNI, NTPROBNP, CHEM8, LIPASE, CMETADD #### Unless otherwise noted, all testing performed by [place] [address] CLIA: [id number] Construction Plumber: Maurice Coello M.D. BUN and Creatinineon 019 Creatinine mass conc 1.44 mg/dL High 0.40-1.10 [facility] Comment on above: Performed By: #### C BCWOD, PT, PTT, DDIMR, EDCTNI, NTPROBNP, CHEM8, LIPASE, CMETADD #### Unless otherwise noted, all testing performed by [place] [address] CLIA: [id number] Construction Plumber: Maurice Coello M.D. GFR/1.73 sq M predicted among blacks MDRD vol rate/area (S/P/Bld) 45 mL/min/{1.73_m2} Low >60 [facility] Comment on above: Result Comment: Afri can Belgian GFR Calc Performed By: #### C BCWOD, PT, PTT, DDIMR, EDCTNI, NTPROBNP, CHEM8, LIPASE, CMETADD #### Unless otherwise noted, all testing performed by [place] [address] CLIA: [id number] Construction Plumber: Maurice Coello M.D. GFR/1.73 sq M predicted among non-blacks MDRD vol rate/area (S/P/Bld) 37 mL/min/{1.73_m2} Low >60 [facility] Comment on above: Result Comment: Non- GFR Calc eGFR is an estimated Glomerular Filtration Rate based on the value of the patient's serum creatinine. In outpatients, eGFR should be used as a helpful tool in screening for CKD. In inpatients or patients with acute renal failure, eGFR represents the GFR at the moment of the draw and should be used with caution. Performed By: #### C BCWOD, PT, PTT, DDIMR, EDCTNI, NTPROBNP, CHEM8, LIPASE, CMETADD #### Unless otherwise noted, all testing performed by [place] [address] CLIA: [id number] Construction Plumber: Maurice Coello M.D. Urea nitrogen mass conc 13 mg/dL Normal 8-25 O [facility] Comment on above: Performed By: #### C BCWOD, PT, PTT, DDIMR, EDCTNI, NTPROBNP, CHEM8, LIPASE, CMETADD #### Unless otherwise noted, all testing performed by [place] [address] CLIA: [id number] Construction Plumber: Maurice Coello M.D. C. difficile Assayon 019 C. difficile interpretation Negative Normal [facility] Comment on above: Result Comment: Rapi d test procedural control acceptable. Performed By: #### C BCWOD, PT, PTT, DDIMR, EDCTNI, NTPROBNP, CHEM8, LIPASE, CMETADD #### Unless otherwise noted, all testing performed by [facility] [address] [place], [place] [address] CLIA: [id number] Construction Plumber: Maurice Coello M.D. CT ABDO,PELVIS W/O CONTRASTo n 11-30-2018 CT ABDO,PELVIS W/O CONTRAST Final Report Accession No: [id number] Performed: Nov 30 2018 11:24AM Examination: CT ABDO,PELVIS W/O CONTRAST EXAM: CT ABDOMEN AND PELVIS W/O CONTRAST CLINICAL STATEMENT: Left-sided abdominal pain with episodes of diarrhea for six months. Patient states symptoms are getting worse. COMPARISON: CT abdomen and pelvis from November 06, 2017. TECHNIQUE: CT examination of the abdomen and pelvis without IV contrast. Oral contrast was not given. Coronal and sagittal reformations were performed. Dose reduction techniques were achieved by using automated exposure control and/or adjustment of mA and/or kV according to patient size and/or use of iterative reconstruction technique. REPORT: The lung bases are clear. No infiltrate or nodule or effusion is noted. The inferior region of the heart shows no gross enlargement or pericardial effusion. The GE junction is normal. The abdominal and pelvic vasculature shows no acute process. Mild to moderate stable fatty infiltrative changes are noted of the liver without ductal dilatation. The gallbladder has been removed. Mild to moderate food debris is noted in the stomach without inflammation or wall thickening. The spleen, pancreas, duodenum, and adrenal glands are unremarkable. Both kidneys show no signs of hydronephrosis or stones or masses. The ureters are unremarkable. The urinary bladder appears to be unremarkable. The inguinal and ischiorectal regions are unremarkable. The anus and rectum are normal. The uterus has been removed. Mild diverticulosis is noted of the distal colon without inflammation. The large and small bowels show no signs of inflammation or obstruction. There is no excessive stool throughout the colon. The ileocecal junction is unremarkable. There appears to be sludge or tiny stones within the appendix but no sign of enlargement or inflammation. There is no evidence of free air or free fluid throughout the abdominal and pelvic cavities. No mass or lymphadenopathy is noted. No severe inflammation is noted. No loculated fluid collections are observed. There is a mild to moderate curvature with degenerative changes of the lumbar spine. No bony lesions are noted. No anterior abdominal wall hernia is noted. The subcutaneous tissues are unremarkable. IMPRESSION: 1. Nonacute CT scan of the abdomen and pelvis. Mild diverticulosis of the distal colon without inflammation. 2. Sludge or perhaps tiny stones within the appendix without signs of enlargement or inflammation. 3. Stable fatty infiltrative changes of the liver. 4. Stable chronic and postsurgical changes as noted. Interpreting Physician: CARY PERKINS D.O. Trans: mh : cc: Normal [facility] Culture, Stoolon 11-30-2018 Culture, Stool Test Name: Culture, Stool Culture Status: Final Culture Report: Lack of Normal Dawna Noted. No Salmonella, Shigella, Yersinia, or Campylobacter isolated. Micro Source: Stool Shiga Toxin 1: Insufficient growth to perform test. Shiga Toxin 2: Insufficient growth to perform test. Normal [facility] Comment on above: Performed By: #### C BCWOD, PT, PTT, DDIMR, EDCTNI, NTPROBNP, CHEM8, LIPASE, CMETADD #### Unless otherwise noted, all testing performed by [place] [address] CLIA: [id number] Construction Plumber: Maurice Coello M.D. Gram Stainon 11-30-2018 Microscopic observation Gram stain Nom (Unsp spec) Test Name: Gram Stain Culture Status: Final Gram Stain: No WBC's Many mixed bowel dawna. Normal F [facility] Comment on above: Performed By: #### C BCWOD, PT, PTT, DDIMR, EDCTNI, NTPROBNP, CHEM8, LIPASE, CMETADD #### Unless otherwise noted, all testing performed by [place] [address] CLIA: [id number] Construction Plumber: Maurice Coello M.D. Lactic Acidon 11-30-2018 Lactate molar conc 0.8 mmol/L Normal 0.6-2.0 [facility] Comment on above: Performed By: #### C BCWOD, PT, PTT, DDIMR, EDCTNI, NTPROBNP, CHEM8, LIPASE, CMETADD #### Unless otherwise noted, all testing performed by [facility] [address] [place], [place] [address] CLIA: [id number] Construction Plumber: Maurice Coello M.D. Progress Noteon 11-30-[address] [facility] [address] [place] [address] NAME RADHA [facility]AFER [facility] [id number] 1960 DATE PROGRESS NOTE ORTHOPEDIC PROGRESS NOTE Radha is a pleasant 58-year-old patient who actually presented to the hospital on 11/28/2018 with left knee pain and swelling. The patient at that point in time had an aspiration. Her case is very interesting. At the time, there was concern of a potential septic knee. The patient at that time had crystals in the left knee that were negative. Her white blood cell count was 11,900; however, segmentations were only 67%. My partner, Dr. Fernández, did the aspiration. She was placed on antibiotics awaiting culture results. The patient has never been febrile. She has been afebrile throughout her course. Her left knee pain is almost completely resolved. At the time of the admission, she did have an elevated sed rate and C-reactive protein. Over the course of the last 24-48 hours, though, in speaking with this patient in high detail, she actually starts talking about a history of irritable bowel syndrome and a workup with a colonoscopy and actually says that last evening her abdominal pain was significant. When I reviewed her chart, the patient at 3:40 in the morning had a heart rate of 125, was hypertensive, and had 7/10 abdominal pain. She said the knee is not the issue, it is her abdomen. When I called the nurse and questioned her about the 125, there was no notification. No EKG was done. This morning I had them obtain an EKG due to her tachycardia and it was sinus tachycardia. The patient has had no hypotension. Her tachycardia has resolved. She says all of her pain is actually in her abdomen. When I started talking to her more about that, she talks about her irritable bowel syndrome. When I saw her at 6:00 p.m. last evening on 11/29/2018 on rounds, she said her knee pain was gone and she was doing well; however, this morning at 6:30 on rounds, she said the abdomen was the big issue. PHYSICAL EXAMINATION Extremities: Today, the left knee has no significant knee effusion. She has full range of motion of the ankle, knee, and hip. Knee exam is actually benign. Abdomen: Soft, but tender diffusely. Her abdominal pain has diminished. Vital Signs: Her vital signs have returned to normal with a heart rate of 88, afebrile, and a blood pressure of 153/81. DATA REVIEWED Her lactic acid is within normal limits. EKG sinus tachycardia. CT scan of the abdomen shows no acute abdomen with mild diverticulosis. The appendix does appear to have some sludge with enlargement. Fatty liver is noted. IMPRESSION 1. 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 2. Left knee effusion, culture negative. 3. Irritable bowel syndrome flare-up. PLAN At this point in time, I do not have enough on the left knee to believe that this is a septic knee. It is clearly a reactive knee. The patient at this time has a history of irritable bowel syndrome. My concern is that this patient has a significant autoimmune inflammatory disease such as ulcerative colitis, irritable bowel syndrome, or even Crohn disease. This reactive enteritis has potentially caused a significant leukocytosis in this patient's clinical scenario. The patient never had a peripheral white blood cell count. The left knee I would expect after 15 years with an infection that there should be a source. She has had no specific source other than her abdomen. With a segmentation profile of only 67%, I still once again understand that there was the knee effusion with pain; however, with a white count at this level and a segmentation percentage of 67% with negative cultures, we are going to hold off on any further intervention. I have discontinued all antibiotics at this point in time. I believe that we are going to watch the knee clinically. I am going to recommend that we continue to treat her abdominal symptoms aggressively. I will see her in 2 weeks in the office for repeat aspiration and followup of this left knee. FINA DONNELLY MD D 11/30/2018 12:22 [id number] T 11/30/2018 13:43 MCB/MODL Electronically Signed By Fina Donnelly M.D. on 01 Dec 2018 15:44:03 GMT Normal [facility] Specimen Acceptable (CDIF)on 11-30-2018 Specimen Acceptable (CDIF) YES [facility] Comment on above: Result Comment: CDonna perdomo ifficile testing result(s) to follow. Performed By: #### C BCWOD, PT, PTT, DDIMR, EDCTNI, NTPROBNP, CHEM8, LIPASE, CMETADD #### Unless otherwise noted, all testing performed by [place] [address] CLIA: [id number] Construction Plumber: Maurice Coello M.D. BUN and Creatinineon 019 Creatinine mass conc 1.26 mg/dL High 0.40-1.10 [facility] Comment on above: Performed By: #### C BCWOD, PT, PTT, DDIMR, EDCTNI, NTPROBNP, CHEM8, LIPASE, CMETADD #### Unless otherwise noted, all testing performed by [place] [address] CLIA: [id number] Construction Plumber: Maurice Coello M.D. GFR/1.73 sq M predicted among blacks MDRD vol rate/area (S/P/Bld) 52 mL/min/{1.73_m2} Low >60 [facility] Comment on above: Result Comment: Afri can Belgian GFR Calc Performed By: #### C BCWOD, PT, PTT, DDIMR, EDCTNI, NTPROBNP, CHEM8, LIPASE, CMETADD #### Unless otherwise noted, all testing performed by [place] [address] CLIA: [id number] Construction Plumber: Maurice Coello M.D. GFR/1.73 sq M predicted among non-blacks MDRD vol rate/area (S/P/Bld) 43 mL/min/{1.73_m2} Low >60 [facility] Comment on above: Result Comment: Non- GFR Calc eGFR is an estimated Glomerular Filtration Rate based on the value of the patient's serum creatinine. In outpatients, eGFR should be used as a helpful tool in screening for CKD. In inpatients or patients with acute renal failure, eGFR represents the GFR at the moment of the draw and should be used with caution. Performed By: #### C BCWOD, PT, PTT, DDIMR, EDCTNI, NTPROBNP, CHEM8, LIPASE, CMETADD #### Unless otherwise noted, all testing performed by [place] [address] CLIA: [id number] Construction Plumber: Maurice Coello M.D. Urea nitrogen mass conc 10 mg/dL Normal 8-25 O [facility] Comment on above: Performed By: #### C BCWOD, PT, PTT, DDIMR, EDCTNI, NTPROBNP, CHEM8, LIPASE, CMETADD #### Unless otherwise noted, all testing performed by [place] [address] CLIA: [id number] Construction Plumber: Maurice Coello M.D. CBC with Diffon 11-28-2018 Basophils #/vol (Bld) 0.1 K/mcL Normal 0-0.2 [facility] Comment on above: Performed By: #### C BCWOD, PT, PTT, DDIMR, EDCTNI, NTPROBNP, CHEM8, LIPASE, CMETADD #### Unless otherwise noted, all testing performed by [place] [address] CLIA: [id number] Construction Plumber: Maurice Coello M.D. Basophils/100 WBC (Bld) 0.9 % Normal [facility] Comment on above: Performed By: #### C BCWOD, PT, PTT, DDIMR, EDCTNI, NTPROBNP, CHEM8, LIPASE, CMETADD #### Unless otherwise noted, all testing performed by [place] [address] CLIA: [id number] Construction Plumber: Maurice Coello M.D. Eosinophils #/vol (Bld) 0.1 K/mcL Normal 0-0.5 [facility] Comment on above: Performed By: #### C BCWOD, PT, PTT, DDIMR, EDCTNI, NTPROBNP, CHEM8, LIPASE, CMETADD #### Unless otherwise noted, all testing performed by [place] [address] CLIA: [id number] Construction Plumber: Maurice Coello M.D. Eosinophils/100 WBC (Bld) 1.5 % Normal [facility] Comment on above: Performed By: #### C BCWOD, PT, PTT, DDIMR, EDCTNI, NTPROBNP, CHEM8, LIPASE, CMETADD #### Unless otherwise noted, all testing performed by [place] [address] CLIA: [id number] Construction Plumber: Maurice Coello M.D. Erythrocyte distribution width Ratio (RBC) 16.8 % High 10.0-14.4 [facility] Comment on above: Performed By: #### C BCWOD, PT, PTT, DDIMR, EDCTNI, NTPROBNP, CHEM8, LIPASE, CMETADD #### Unless otherwise noted, all testing performed by [address] [place], [place] [address] CLIA: [id number] Construction Plumber: Maurice Coello M.D. Hematocrit Volume Fraction (Bld) 32.8 % Low 34.4-44.8 [facility] Comment on above: Performed By: #### C BCWOD, PT, PTT, DDIMR, EDCTNI, NTPROBNP, CHEM8, LIPASE, CMETADD #### Unless otherwise noted, all testing performed by [place] [address] CLIA: [id number] [employer]: Maurice Coello M.D. Hemoglobin mass conc (Bld) 10.8 g/dL Low 11.6-15.4 [facility] Comment on above: Performed By: #### C BCWOD, PT, PTT, DDIMR, EDCTNI, NTPROBNP, CHEM8, LIPASE, CMETADD #### Unless otherwise noted, all testing performed by [place] [address] CLIA: [id number] Construction [employer]umber: Maurice Coello M.D. Lymphocytes #/vol (Bld) 1.8 K/mcL Normal 1.0-3.7 O [facility] Comment on above: Performed By: #### C BCWOD, PT, PTT, DDIMR, EDCTNI, NTPROBNP, CHEM8, LIPASE, CMETADD #### Unless otherwise noted, all testing performed by [place] [address] CLIA: [id number] Construction [employer]umber: Maurice Coello M.D. Lymphocytes/100 WBC (Bld) 20.7 % Normal [facility] Comment on above: Performed By: #### C BCWOD, PT, PTT, DDIMR, EDCTNI, NTPROBNP, CHEM8, LIPASE, CMETADD #### Unless otherwise noted, all testing performed by [place] [address] CLIA: [id number] Construction [employer]umber: Maurice Coello M.D. MCH Entitic mass (RBC) 25.3 pg Low 27.9-33.9 [facility] Comment on above: Performed By: #### C BCWOD, PT, PTT, DDIMR, EDCTNI, NTPROBNP, CHEM8, LIPASE, CMETADD #### Unless otherwise noted, all testing performed by [place] [address] CLIA: [id number] [employer]umber: Maurice Coello M.D. MCHC mass conc (RBC) 33.0 g/dL Low 33.1-35.1 [facility] Comment on above: Performed By: #### C BCWOD, PT, PTT, DDIMR, EDCTNI, NTPROBNP, CHEM8, LIPASE, CMETADD #### Unless otherwise noted, all testing performed by [place] [address] CLIA: [id number] Construction [employer]umber: Maurice Coello M.D. MCV Entitic volume (RBC) 76.7 fL Low 82.6-98.9 [facility] Comment on above: Performed By: #### C BCWOD, PT, PTT, DDIMR, EDCTNI, NTPROBNP, CHEM8, LIPASE, CMETADD #### Unless otherwise noted, all testing performed by [place] [address] CLIA: [id number] Construction [employer]umber: Maurice Coello M.D. Monocytes #/vol (Bld) 0.7 K/mcL High 0.1-0.6 [facility] Comment on above: Performed By: #### C BCWOD, PT, PTT, DDIMR, EDCTNI, NTPROBNP, CHEM8, LIPASE, CMETADD #### Unless otherwise noted, all testing performed by [place] [address] CLIA: [id number] Construction Plumber: Maurice Coello M.D. Monocytes/100 WBC (Bld) 8.1 % Normal [facility] Comment on above: Performed By: #### C BCWOD, PT, PTT, DDIMR, EDCTNI, NTPROBNP, CHEM8, LIPASE, CMETADD #### Unless otherwise noted, all testing performed by [place] [address] CLIA: [id number] Construction [employer]umber: Maurice Coello M.D. Neutrophils #/vol (Bld) 5.8 K/mcL Normal 1.2-6.9 [facility] Comment on above: Performed By: #### C BCWOD, PT, PTT, DDIMR, EDCTNI, NTPROBNP, CHEM8, LIPASE, CMETADD #### Unless otherwise noted, all testing performed by [place] [address] CLIA: [id number] [employer]umber: Maurice Coello M.D. Platelet mean volume Entitic volume (Bld) 8.7 fL Normal 7.0-10.6 [facility] Comment on above: Performed By: #### C BCWOD, PT, PTT, DDIMR, EDCTNI, NTPROBNP, CHEM8, LIPASE, CMETADD #### Unless otherwise noted, all testing performed by [place] [address] CLIA: [id number] Construction Plumber: Maurice Coello M.D. Platelets #/vol (Bld) 274 K/mcL Normal 162-402 [facility] Comment on above: Performed By: #### C BCWOD, PT, PTT, DDIMR, EDCTNI, NTPROBNP, CHEM8, LIPASE, CMETADD #### Unless otherwise noted, all testing performed by [place] [address] CLIA: [id number] Construction [employer]umber: Maurice Coello M.D. RBC #/vol (Bld) 4.28 M/mcL Normal 3.7-5.0 [facility] Comment on above: Performed By: #### C BCWOD, PT, PTT, DDIMR, EDCTNI, NTPROBNP, CHEM8, LIPASE, CMETADD #### Unless otherwise noted, all testing performed by [place] [address] CLIA: [id number] Construction Plumber: Maurice Coello M.D. Segmented Neut % 68.8 % Normal [facility] Comment on above: Performed By: #### C BCWOD, PT, PTT, DDIMR, EDCTNI, NTPROBNP, CHEM8, LIPASE, CMETADD #### Unless otherwise noted, all testing performed by [place] [address] CLIA: [id number] Construction Plumber: Maurice Coello M.D. WBC #/vol (Bld) 8.5 K/mcL Normal 3.4-10.6 [facility] Comment on above: Performed By: #### C BCWOD, PT, PTT, DDIMR, EDCTNI, NTPROBNP, CHEM8, LIPASE, CMETADD #### Unless otherwise noted, all testing performed by [address] [place] [address] CLIA: [id number] Construction [employer]umber: Maurice Coello M.D. CHEMG (Basic Metabolic and M g)on 11-28-2018 Calcium mass conc 8.1 mg/dL Low 8.4-10.2 [facility] Comment on above: Performed By: #### C BCWOD, PT, PTT, DDIMR, EDCTNI, NTPROBNP, CHEM8, LIPASE, CMETADD #### Unless otherwise noted, all testing performed by [place] [address] CLIA: [id number] Construction [employer]umber: Maurice Coello M.D. Chloride molar conc 106 mmol/L Normal 98-108 [facility] Comment on above: Performed By: #### C BCWOD, PT, PTT, DDIMR, EDCTNI, NTPROBNP, CHEM8, LIPASE, CMETADD #### Unless otherwise noted, all testing performed by [place] [address] CLIA: [id number] [employer]umber: Maurice Coello M.D. CO2 molar conc 28 mmol/L Normal 21-32 [facility] Comment on above: Performed By: #### C BCWOD, PT, PTT, DDIMR, EDCTNI, NTPROBNP, CHEM8, LIPASE, CMETADD #### Unless otherwise noted, all testing performed by [place] [address] CLIA: [id number] Construction [employer]umber: Maurice Coello M.D. Creatinine mass conc 1.51 mg/dL High 0.40-1.10 [facility] Comment on above: Performed By: #### C BCWOD, PT, PTT, DDIMR, EDCTNI, NTPROBNP, CHEM8, LIPASE, CMETADD #### Unless otherwise noted, all testing performed by [place] [address] CLIA: [id number] Construction [employer]umber: Maurice Coello M.D. GFR/1.73 sq M predicted among blacks MDRD vol rate/area (S/P/Bld) 42 mL/min/{1.73_m2} Low >60 [facility] Comment on above: Result Comment: Afri can Belgian GFR Calc Performed By: #### C BCWOD, PT, PTT, DDIMR, EDCTNI, NTPROBNP, CHEM8, LIPASE, CMETADD #### Unless otherwise noted, all testing performed by [place] [address] CLIA: [id number] Construction Plumber: Maurice Coello M.D. GFR/1.73 sq M predicted among non-blacks MDRD vol rate/area (S/P/Bld) 35 mL/min/{1.73_m2} Low >60 [facility] Comment on above: Result Comment: Non- GFR Calc eGFR is an estimated Glomerular Filtration Rate based on the value of the patient's serum creatinine. In outpatients, eGFR should be used as a helpful tool in screening for CKD. In inpatients or patients with acute renal failure, eGFR represents the GFR at the moment of the draw and should be used with caution. Performed By: #### C BCWOD, PT, PTT, DDIMR, EDCTNI, NTPROBNP, CHEM8, LIPASE, CMETADD #### Unless otherwise noted, all testing performed by [place] [address] CLIA: [id number] Construction [employer]umber: Maurice Coello M.D. Glucose mass conc 91 mg/dL Normal 70-99 [facility] Comment on above: Result Comment: This test result might be falsely depressed or falsely elevated on samples drawn from patients taking Sulfasalazine and Sulfapyridine. Venipuncture should occur prior to taking either of these drugs. Performed By: #### C BCWOD, PT, PTT, DDIMR, EDCTNI, NTPROBNP, CHEM8, LIPASE, CMETADD #### Unless otherwise noted, all testing performed by [place] [address] CLIA: [id number] Construction Plumber: Maurice Coello M.D. Magnesium mass conc 2.0 mg/dL Normal 1.6-2.4 [facility] Comment on above: Performed By: #### C BCWOD, PT, PTT, DDIMR, EDCTNI, NTPROBNP, CHEM8, LIPASE, CMETADD #### Unless otherwise noted, all testing performed by [place] [phone] CLIA: [id number] Construction Plumber: Maurice Coello M.D. Potassium molar conc 4.4 mmol/L Normal 3.5-5.1 [facility] Comment on above: Performed By: #### C BCWOD, PT, PTT, DDIMR, EDCTNI, NTPROBNP, CHEM8, LIPASE, CMETADD #### Unless otherwise noted, all testing performed by [place] [address] CLIA: [id number] Construction Plumber: Maurice Coello M.D. Sodium molar conc 137 mmol/L Normal 135-145 [facility] Comment on above: Performed By: #### C BCWOD, PT, PTT, DDIMR, EDCTNI, NTPROBNP, CHEM8, LIPASE, CMETADD #### Unless otherwise noted, all testing performed by [place] [address] CLIA: [id number] Construction [employer]umber: Maurice Coello M.D. Urea nitrogen mass conc 14 mg/dL Normal 8-25 O [facility] Comment on above: Performed By: #### C BCWOD, PT, PTT, DDIMR, EDCTNI, NTPROBNP, CHEM8, LIPASE, CMETADD #### Unless otherwise noted, all testing performed by [place] [address] CLIA: [id number] Construction Plumber: Maurice Coello M.D. Cell Count, Body Fluidon Avni Swift.Khoa Cloudy Abnormal Clear [facility] Comment on above: Performed By: #### C BCWOD, PT, PTT, DDIMR, EDCTNI, NTPROBNP, CHEM8, LIPASE, CMETADD #### Unless otherwise noted, all testing performed by [place] [address] CLIA: [id number] Construction Plumber: Maurice Coello M.D. Color, Body Fl. Yellow Normal [facility] Comment on above: Performed By: #### C BCWOD, PT, PTT, DDIMR, EDCTNI, NTPROBNP, CHEM8, LIPASE, CMETADD #### Unless otherwise noted, all testing performed by [place] [address] CLIA: [id number] Construction Plumber: Maurice Coello M.D. Lymphocytes/100 WBC (Bld) 7.0 % Normal [facility] Comment on above: Result Comment: Syno vial fld. Lymph% ref. range is <75%. Performed By: #### C BCWOD, PT, PTT, DDIMR, EDCTNI, NTPROBNP, CHEM8, LIPASE, CMETADD #### Unless otherwise noted, all testing performed by [address] [place], [place] [address] CLIA: [id number] Construction Plumber: Maurice Coello M.D. [place]/Macrophage 26.0 % Normal [facility] Comment on above: Result Comment: Syno vial fld. monocyte/macrophage% ref. range is <70%. Performed By: #### C BCWOD, PT, PTT, DDIMR, EDCTNI, NTPROBNP, CHEM8, LIPASE, CMETADD #### Unless otherwise noted, all testing performed by [place] [address] CLIA: [id number] Construction Plumber: Maurice Coello M.D. RBC #/vol (Bld) 4014 /mcL Normal [facility] Comment on above: Result Comment: Syno vial fld. RBC ref. range is 0/mcL. Performed By: #### C BCWOD, PT, PTT, DDIMR, EDCTNI, NTPROBNP, CHEM8, LIPASE, CMETADD #### Unless otherwise noted, all testing performed by [place] [address] CLIA: [id number] Construction Plumber: Maurice Coello M.D. Seg, Body Fl. 67.0 % Normal [facility] Comment on above: Result Comment: Syno vial fld. Seg% ref. range is <25%. Performed By: #### C BCWOD, PT, PTT, DDIMR, EDCTNI, NTPROBNP, CHEM8, LIPASE, CMETADD #### Unless otherwise noted, all testing performed by [place] [address] CLIA: [id number] Construction Plumber: Maurice Coello M.D. Spec. Type, B.F. Synovial Fluid Normal [facility] Comment on above: Performed By: #### C BCWOD, PT, PTT, DDIMR, EDCTNI, NTPROBNP, CHEM8, LIPASE, CMETADD #### Unless otherwise noted, all testing performed by [place] [address] CLIA: [id number] Construction Plumber: Maurice Coello M.D. WBC #/vol (Bld) 67397 /mcL Normal [facility] Comment on above: Result Comment: Syno vial fld. WBC ref. range is 0-200/mcL. Performed By: #### C BCWOD, PT, PTT, DDIMR, EDCTNI, NTPROBNP, CHEM8, LIPASE, CMETADD #### Unless otherwise noted, all testing performed by [place] [address] CLIA: [id number] Construction Plumber: Maurice Coello M.D. Crystals, Syn Fldon 11-28-19 19 Crystal, Intra None Seen Normal None Seen [facility] Comment on above: Performed By: #### C BCWOD, PT, PTT, DDIMR, EDCTNI, NTPROBNP, CHEM8, LIPASE, CMETADD #### Unless otherwise noted, all testing performed by [place] [address] CLIA: [id number] Construction Plumber: Maruice Coello M.D. Crystals, Extra None Seen Normal None Seen [facility] Comment on above: Performed By: #### C BCWOD, PT, PTT, DDIMR, EDCTNI, NTPROBNP, CHEM8, LIPASE, CMETADD #### Unless otherwise noted, all testing performed by [place] [address] CLIA: [id number] Construction Plumber: Maurice Coello M.D. Culture, Acid-Faston 019 Culture, Acid-Fast Test Name: Culture, Acid-Fast Site: Left knee (tka) Culture Status: Final Culture Report: No Acid-Fast Bacillus isolated after 8 weeks. Acid-Fast Smear: No Acid-Fast Bacillus seen on smear. Micro Source: Synovial Fluid Normal [facility] Comment on above: Performed By: #### C BCWOD, PT, PTT, DDIMR, EDCTNI, NTPROBNP, CHEM8, LIPASE, CMETADD #### Unless otherwise noted, all testing performed by [place] [address] CLIA: [id number] Construction [employer]umber: Maurice Coello M.D. Culture, Anaerobicon 019 Culture, Anaerobic Test Name: Culture, Anaerobic Site: left knee (TKA) Culture Status: Final Culture Report: No anaerobes isolated. Micro Source: Synovial Fluid Normal [facility] Comment on above: Performed By: #### C BCWOD, PT, PTT, DDIMR, EDCTNI, NTPROBNP, CHEM8, LIPASE, CMETADD #### Unless otherwise noted, all testing performed by [place] [address] CLIA: [id number] Construction Plumber: Maurice Coello M.D. Culture, Fungus,Otheron 11-07 Culture, Fungus,Other Test Name: Culture , Fungus,Other Site: left knee (tka) Culture Status: Final Culture Report: No Fungi isolated after 6 weeks. CATERINA Prep: No Fungal Elements Seen Micro Source: Synovial Fluid Normal [facility] Comment on above: Performed By: #### C BCWOD, PT, PTT, DDIMR, EDCTNI, NTPROBNP, CHEM8, LIPASE, CMETADD #### Unless otherwise noted, all testing performed by [place] [address] CLIA: [id number] Construction Plumber: Maurice Coello M.D. Culture,Bacterialon 11-28-19 19 Culture,Bacterial Test Name: Culture,Bacterial Site: left knee (TKA) Culture Status: Final Culture Report: No Growth - Day 5 Gram Stain: Moderate WBC's No Organisms Seen Micro Source: Synovial Fluid Normal [facility] Comment on above: Performed By: #### C BCWOD, PT, PTT, DDIMR, EDCTNI, NTPROBNP, CHEM8, LIPASE, CMETADD #### Unless otherwise noted, all testing performed by [place] [address] CLIA: [id number] Construction Plumber: Maurice Coello M.D. CBC with Diffon 11-27-2018 Basophils #/vol (Bld) 0.1 K/mcL Normal 0-0.2 [facility] Comment on above: Performed By: #### C BCWOD, PT, PTT, DDIMR, EDCTNI, NTPROBNP, CHEM8, LIPASE, CMETADD #### Unless otherwise noted, all testing performed by [place] [address] CLIA: [id number] Construction Plumber: Maurice Coello M.D. Basophils/100 WBC (Bld) 0.8 % Normal [facility] Comment on above: Performed By: #### C BCWOD, PT, PTT, DDIMR, EDCTNI, NTPROBNP, CHEM8, LIPASE, CMETADD #### Unless otherwise noted, all testing performed by [place] [address] CLIA: [id number] Construction Plumber: Maurice Coello M.D. Eosinophils #/vol (Bld) 0.1 K/mcL Normal 0-0.5 [facility] Comment on above: Performed By: #### C BCWOD, PT, PTT, DDIMR, EDCTNI, NTPROBNP, CHEM8, LIPASE, CMETADD #### Unless otherwise noted, all testing performed by [place] [address] CLIA: [id number] Construction Plumber: Maurice Coello M.D. Eosinophils/100 WBC (Bld) 1.3 % Normal [facility] Comment on above: Performed By: #### C BCWOD, PT, PTT, DDIMR, EDCTNI, NTPROBNP, CHEM8, LIPASE, CMETADD #### Unless otherwise noted, all testing performed by [place] [address] CLIA: [id number] Construction Plumber: Maurice Coello M.D. Erythrocyte distribution width Ratio (RBC) 16.8 % High 10.0-14.4 [facility] Comment on above: Performed By: #### C BCWOD, PT, PTT, DDIMR, EDCTNI, NTPROBNP, CHEM8, LIPASE, CMETADD #### Unless otherwise noted, all testing performed by [place] [address] CLIA: [id number] Construction Plumber: Maurice Coello M.D. Hematocrit Volume Fraction (Bld) 37.1 % Normal 34.4-44.8 [facility] Comment on above: Performed By: #### C BCWOD, PT, PTT, DDIMR, EDCTNI, NTPROBNP, CHEM8, LIPASE, CMETADD #### Unless otherwise noted, all testing performed by [place] [address] CLIA: [id number] Construction Plumber: Maurice Coello M.D. Hemoglobin mass conc (Bld) 11.7 g/dL Normal 11.6-15.4 [facility] Comment on above: Performed By: #### C BCWOD, PT, PTT, DDIMR, EDCTNI, NTPROBNP, CHEM8, LIPASE, CMETADD #### Unless otherwise noted, all testing performed by [place] [address] CLIA: [id number] Construction [employer]umber: Maurice Coello M.D. Lymphocytes #/vol (Bld) 1.6 K/mcL Normal 1.0-3.7 O [facility] Comment on above: Performed By: #### C BCWOD, PT, PTT, DDIMR, EDCTNI, NTPROBNP, CHEM8, LIPASE, CMETADD #### Unless otherwise noted, all testing performed by [place] [address] CLIA: [id number] Construction Plumber: Maurice Coello M.D. Lymphocytes/100 WBC (Bld) 19.2 % Normal [facility] Comment on above: Performed By: #### C BCWOD, PT, PTT, DDIMR, EDCTNI, NTPROBNP, CHEM8, LIPASE, CMETADD #### Unless otherwise noted, all testing performed by [place] [address] CLIA: [id number] Construction Plumber: Maurice Coello M.D. MCH Entitic mass (RBC) 24.2 pg Low 27.9-33.9 [facility] Comment on above: Performed By: #### C BCWOD, PT, PTT, DDIMR, EDCTNI, NTPROBNP, CHEM8, LIPASE, CMETADD #### Unless otherwise noted, all testing performed by [place] [address] CLIA: [id number] Construction Plumber: Maurice Coello M.D. MCHC mass conc (RBC) 31.5 g/dL Low 33.1-35.1 [facility] Comment on above: Performed By: #### C BCWOD, PT, PTT, DDIMR, EDCTNI, NTPROBNP, CHEM8, LIPASE, CMETADD #### Unless otherwise noted, all testing performed by [place] [address] CLIA: [id number] Construction Plumber: Maurice Coello M.D. MCV Entitic volume (RBC) 77.0 fL Low 82.6-98.9 [facility] Comment on above: Performed By: #### C BCWOD, PT, PTT, DDIMR, EDCTNI, NTPROBNP, CHEM8, LIPASE, CMETADD #### Unless otherwise noted, all testing performed by [place] [address] CLIA: [id number] Construction Plumber: Maurice Coello M.D. Monocytes #/vol (Bld) 0.5 K/mcL Normal 0.1-0.6 [facility] Comment on above: Performed By: #### C BCWOD, PT, PTT, DDIMR, EDCTNI, NTPROBNP, CHEM8, LIPASE, CMETADD #### Unless otherwise noted, all testing performed by [place] [address] CLIA: [id number] Construction Plumber: Maurice Coello M.D. Monocytes/100 WBC (Bld) 6.5 % Normal [facility] Comment on above: Performed By: #### C BCWOD, PT, PTT, DDIMR, EDCTNI, NTPROBNP, CHEM8, LIPASE, CMETADD #### Unless otherwise noted, all testing performed by [address] [place], [place] [address] CLIA: [id number] Construction Plumber: Maurice Coello M.D. Neutrophils #/vol (Bld) 5.9 K/mcL Normal 1.2-6.9 [facility] Comment on above: Performed By: #### C BCWOD, PT, PTT, DDIMR, EDCTNI, NTPROBNP, CHEM8, LIPASE, CMETADD #### Unless otherwise noted, all testing performed by [place] [address] CLIA: [id number] Construction Plumber: Maurice Coello M.D. Platelet mean volume Entitic volume (Bld) 8.5 fL Normal 7.0-10.6 [facility] Comment on above: Performed By: #### C BCWOD, PT, PTT, DDIMR, EDCTNI, NTPROBNP, CHEM8, LIPASE, CMETADD #### Unless otherwise noted, all testing performed by [place] [address] CLIA: [id number] Construction Plumber: Maurice Coello M.D. Platelets #/vol (Bld) 279 K/mcL Normal 162-402 [facility] Comment on above: Performed By: #### C BCWOD, PT, PTT, DDIMR, EDCTNI, NTPROBNP, CHEM8, LIPASE, CMETADD #### Unless otherwise noted, all testing performed by [place] [address] CLIA: [id number] Construction Plumber: Maurice Coello M.D. RBC #/vol (Bld) 4.83 M/mcL Normal 3.7-5.0 [facility] Comment on above: Performed By: #### C BCWOD, PT, PTT, DDIMR, EDCTNI, NTPROBNP, CHEM8, LIPASE, CMETADD #### Unless otherwise noted, all testing performed by [place] [address] CLIA: [id number] Construction Plumber: Maurice Coello M.D. Segmented Neut % 72.2 % Normal [facility] Comment on above: Performed By: #### C BCWOD, PT, PTT, DDIMR, EDCTNI, NTPROBNP, CHEM8, LIPASE, CMETADD #### Unless otherwise noted, all testing performed by [place] [address] CLIA: [id number] Construction Plumber: Maurice Coello M.D. WBC #/vol (Bld) 8.2 K/mcL Normal 3.4-10.6 [facility] Comment on above: Performed By: #### C BCWOD, PT, PTT, DDIMR, EDCTNI, NTPROBNP, CHEM8, LIPASE, CMETADD #### Unless otherwise noted, all testing performed by [place] [address] CLIA: [id number] Construction [employer]umber: Maurice Coello M.D. CRP, C-Reactive Proteinon Protein mass conc 145.0 mg/L High 0.0-10.0 [facility] Comment on above: Performed By: #### C BCWOD, PT, PTT, DDIMR, EDCTNI, NTPROBNP, CHEM8, LIPASE, CMETADD #### Unless otherwise noted, all testing performed by [place] [address] CLIA: [id number] Construction Plumber: Maurice Coello M.D. Comprehensive Metabolic Pane [facility] 11-27-2018 Albumin mass conc 3.6 g/dL Normal 3.2-5.2 [facility] Comment on above: Performed By: #### C BCWOD, PT, PTT, DDIMR, EDCTNI, NTPROBNP, CHEM8, LIPASE, CMETADD #### Unless otherwise noted, all testing performed by [place] [address] CLIA: [id number] Construction Plumber: Maurice Coello M.D. ALP enzyme act/vol 102 U/L Normal 40-150 [facility] Comment on above: Performed By: #### C BCWOD, PT, PTT, DDIMR, EDCTNI, NTPROBNP, CHEM8, LIPASE, CMETADD #### Unless otherwise noted, all testing performed by [place] [phone] CLIA: [id number] Construction Plumber: Maurice Coello M.D. ALT enzyme act/vol 21 U/L Normal 14-65 [facility] Comment on above: Result Comment: This test result might be falsely depressed or falsely elevated on samples drawn from patients taking Sulfasalazine and Sulfapyridine. Venipuncture should occur prior to taking either of these drugs. Performed By: #### C BCWOD, PT, PTT, DDIMR, EDCTNI, NTPROBNP, CHEM8, LIPASE, CMETADD #### Unless otherwise noted, all testing performed by [place] [address] CLIA: [id number] Construction Plumber: Maurice Coello M.D. AST enzyme act/vol 18 U/L Normal 0-45 [facility] Comment on above: Result Comment: This test result might be falsely depressed or falsely elevated on samples drawn from patients taking Sulfasalazine and Sulfapyridine. Venipuncture should occur prior to taking either of these drugs. Performed By: #### C BCWOD, PT, PTT, DDIMR, EDCTNI, NTPROBNP, CHEM8, LIPASE, CMETADD #### Unless otherwise noted, all testing performed by [place] [address] CLIA: [id number] Construction Plumber: Maurice Coello M.D. Bilirubin mass conc 0.3 mg/dL Normal 0.3-1.2 [facility] Comment on above: Performed By: #### C BCWOD, PT, PTT, DDIMR, EDCTNI, NTPROBNP, CHEM8, LIPASE, CMETADD #### Unless otherwise noted, all testing performed by [place] [address] CLIA: [id number] Construction Plumber: Maurice Coello M.D. Calcium mass conc 8.7 mg/dL Normal 8.4-10.2 [facility] Comment on above: Performed By: #### C BCWOD, PT, PTT, DDIMR, EDCTNI, NTPROBNP, CHEM8, LIPASE, CMETADD #### Unless otherwise noted, all testing performed by [place] [address] CLIA: [id number] Construction Plumber: Maurice Coello M.D. Chloride molar conc 105 mmol/L Normal 98-108 [facility] Comment on above: Performed By: #### C BCWOD, PT, PTT, DDIMR, EDCTNI, NTPROBNP, CHEM8, LIPASE, CMETADD #### Unless otherwise noted, all testing performed by [place] [address] CLIA: [id number] Construction Plumber: Maurice Coello M.D. CO2 molar conc 27 mmol/L Normal 21-32 [facility] Comment on above: Performed By: #### C BCWOD, PT, PTT, DDIMR, EDCTNI, NTPROBNP, CHEM8, LIPASE, CMETADD #### Unless otherwise noted, all testing performed by [place] [address] CLIA: [id number] [employer] Plumber: Maurice Coello M.D. Creatinine mass conc 1.53 mg/dL High 0.40-1.10 [facility] Comment on above: Performed By: #### C BCWOD, PT, PTT, DDIMR, EDCTNI, NTPROBNP, CHEM8, LIPASE, CMETADD #### Unless otherwise noted, all testing performed by [place] [address] CLIA: [id number] Construction Plumber: Maurice Coello M.D. GFR/1.73 sq M predicted among blacks MDRD vol rate/area (S/P/Bld) 42 mL/min/{1.73_m2} Low >60 [facility] Comment on above: Result Comment: Afri can Belgian GFR Calc Performed By: #### C BCWOD, PT, PTT, DDIMR, EDCTNI, NTPROBNP, CHEM8, LIPASE, CMETADD #### Unless otherwise noted, all testing performed by [place] [address] CLIA: [id number] Construction Plumber: Maurice Coello M.D. GFR/1.73 sq M predicted among non-blacks MDRD vol rate/area (S/P/Bld) 35 mL/min/{1.73_m2} Low >60 [facility] Comment on above: Result Comment: Non- GFR Calc eGFR is an estimated Glomerular Filtration Rate based on the value of the patient's serum creatinine. In outpatients, eGFR should be used as a helpful tool in screening for CKD. In inpatients or patients with acute renal failure, eGFR represents the GFR at the moment of the draw and should be used with caution. Performed By: #### C BCWOD, PT, PTT, DDIMR, EDCTNI, NTPROBNP, CHEM8, LIPASE, CMETADD #### Unless otherwise noted, all testing performed by [place] [address] CLIA: [id number] Construction Plumber: Maurice Coello M.D. Glucose mass conc 96 mg/dL Normal 70-99 [facility] Comment on above: Result Comment: This test result might be falsely depressed or falsely elevated on samples drawn from patients taking Sulfasalazine and Sulfapyridine. Venipuncture should occur prior to taking either of these drugs. Performed By: #### C BCWOD, PT, PTT, DDIMR, EDCTNI, NTPROBNP, CHEM8, LIPASE, CMETADD #### Unless otherwise noted, all testing performed by [place] [address] CLIA: [id number] Construction Plumber: Maurice Coello M.D. Potassium molar conc 3.9 mmol/L Normal 3.5-5.1 [facility] Comment on above: Performed By: #### C BCWOD, PT, PTT, DDIMR, EDCTNI, NTPROBNP, CHEM8, LIPASE, CMETADD #### Unless otherwise noted, all testing performed by [place] [address] CLIA: [id number] Construction Plumber: Maurice Coello M.D. Protein mass conc 7.9 g/dL Normal 6.0-8.0 [facility] Comment on above: Performed By: #### C BCWOD, PT, PTT, DDIMR, EDCTNI, NTPROBNP, CHEM8, LIPASE, CMETADD #### Unless otherwise noted, all testing performed by [place] [address] CLIA: [id number] Construction Plumber: Maurice Coello M.D. Sodium molar conc 139 mmol/L Normal 135-145 [facility] Comment on above: Performed By: #### C BCWOD, PT, PTT, DDIMR, EDCTNI, NTPROBNP, CHEM8, LIPASE, CMETADD #### Unless otherwise noted, all testing performed by [place] [address] CLIA: [id number] Construction Plumber: Maurice Coello M.D. Urea nitrogen mass conc 13 mg/dL Normal 8-25 [facility] Comment on above: Performed By: #### C BCWOD, PT, PTT, DDIMR, EDCTNI, NTPROBNP, CHEM8, LIPASE, CMETADD #### Unless otherwise noted, all testing performed by [place] [address] CLIA: [id number] Construction Plumber: Maurice Coello M.D. D-Dimeron 11-27-2018 D-Dimer 1.18 mcg/ml (FEU) High < .5 [facility] Comment on above: Result Comment: This test is intended for use in conjunction with a clinical pretest probability (PTP) assessment model to exclude pulmonary embolism (PE) and deep vein thrombosis (DVT) in outpatients suspected of PE or DVT. Performed By: #### C BCWOD, PT, PTT, DDIMR, EDCTNI, NTPROBNP, CHEM8, LIPASE, CMETADD #### Unless otherwise noted, all testing performed by [place] [address] CLIA: [id number] Construction Plumber: Maurice Mode, M.D. KNEE W/ONE OBLIQUEon 019 KNEE W/ONE OBLIQUE Final Report Accession No: [id number] Performed: Nov 27 2018 7:33PM Examination: LEFT KNEE W/ONE OBLIQUE EXAM TYPE: KNEE W/ONE OBLIQUE LEFT EXAM DATE AND TIME: 11/27/2018 7:33 PM EST INDICATION: 58 years old Female with pain COMPARISON: None. TECHNIQUE: 3 views of the left knee. 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 No significant periprosthetic lucency is seen to suggest loosening or hardware malfunctioning. No acute fracture. Joint alignment is anatomic. Joint spaces are preserved. No significant joint effusion. Soft tissues are within normal limits. IMPRESSION: No acute fracture or traumatic malalignment. Prior total left knee replacement without radiographic evidence for complications. Interpreting Physician: MATIAS ADLER M.D. Trans: [id number] : cc: Normal [facility] Lactic Acidon 11-27-2018 Lactate molar conc 0.9 mmol/L Normal 0.6-2.0 [facility] Comment on above: Performed By: #### C BCWOD, PT, PTT, DDIMR, EDCTNI, NTPROBNP, CHEM8, LIPASE, CMETADD #### Unless otherwise noted, all testing performed by [place] [address] CLIA: [id number] Construction Plumber: Maurice Coello M.D. Sed Rateon 11-27-2018 Sed Rate 53 MM/hr. High 0-20 [facility] Comment on above: Performed By: #### C BCWOD, PT, PTT, DDIMR, EDCTNI, NTPROBNP, CHEM8, LIPASE, CMETADD #### Unless otherwise noted, all testing performed by [place] [address] CLIA: [id number] Construction Plumber: Maurice Coello M.D. US EXTREMITY NON-VASCULAR LM ITEDon 10-10-2018 US EXTREMITY NON-VASCULAR LMITED Final Report Accession No: [id number] Performed: Oct 10 2018 12:32PM Examination: RIGHT US EXTREMITY NON-VASCULAR LMITED EXAM TYPE: US EXTREMITY NON-VASCULAR LMITED RIGHT EXAM DATE AND TIME: 10/10/2018 12:32 PM EST INDICATION: 58-year-old female with posterior thigh pain below the right buttocks. COMPARISON: None. TECHNIQUE: Targeted soft tissue ultrasound involving the posterior right thigh just below the buttocks. FINDINGS: No mass or fluid collection. No areas of hyperemia. IMPRESSION: No sonographic abnormality to correspond with patient's posterior right thigh pain. Interpreting Physician: MARIA VICTORIA DAY D.O. Trans: dcarr : cc: Normal [facility] Blood Gas, Arterialon 2017 Aa Ratio 77.0 % Normal [facility] Comment on above: Performed By: #### C BCWOD, PT, PTT, DDIMR, EDCTNI, NTPROBNP, CHEM8, LIPASE, CMETADD #### Unless otherwise noted, all testing performed by [place] [address] CLIA: [id number] Construction Plumber: Maurice Coello M.D. [id number] 21.5 mm Hg Normal [facility] Comment on above: Performed By: #### C BCWOD, PT, PTT, DDIMR, EDCTNI, NTPROBNP, CHEM8, LIPASE, CMETADD #### Unless otherwise noted, all testing performed by [place] [address] CLIA: [id number] Construction Plumber: Maurice Coello M.D. Allens Test N/A Normal [facility] Comment on above: Performed By: #### C BCWOD, PT, PTT, DDIMR, EDCTNI, NTPROBNP, CHEM8, LIPASE, CMETADD #### Unless otherwise noted, all testing performed by [address], [place] [address] CLIA: [id number] Construction Plumber: Maurice Coello M.D. Base Excess 1.2 mmol/L Normal -2-2 [facility] Comment on above: Performed By: #### C BCWOD, PT, PTT, DDIMR, EDCTNI, NTPROBNP, CHEM8, LIPASE, CMETADD #### Unless otherwise noted, all testing performed by [place] [address] CLIA: [id number] Construction Plumber: Maurice Coello M.D. Blood Gas Instrument ;ICU Normal [facility] Comment on above: Performed By: #### C BCWOD, PT, PTT, DDIMR, EDCTNI, NTPROBNP, CHEM8, LIPASE, CMETADD #### Unless otherwise noted, all testing performed by [place] [address] CLIA: [id number] Construction Plumber: Maurice Coello M.D. Carboxyhemoglobin 1.2 % Normal [facility] Comment on above: Result Comment: Subu rban Non-Smoker <1.5% of total Hgb Smoker 1.5 - 5.0 % of total Hgb Heavy Smoker 5.0 - 9.0 % of total Hgb Performed By: #### C BCWOD, PT, PTT, DDIMR, EDCTNI, NTPROBNP, CHEM8, LIPASE, CMETADD #### Unless otherwise noted, all testing performed by [place] [address] CLIA: [id number] Construction Plumber: Maurice Coello M.D. DeOxyhemoglobin (HHB) 5.5 % High 0.0-5.0 [facility] Comment on above: Performed By: #### C BCWOD, PT, PTT, DDIMR, EDCTNI, NTPROBNP, CHEM8, LIPASE, CMETADD #### Unless otherwise noted, all testing performed by [place] [address] CLIA: [id number] Construction Plumber: Maurice Coello M.D. Drawn By (Bld Gas) pdb Normal [facility] Comment on above: Performed By: #### C BCWOD, PT, PTT, DDIMR, EDCTNI, NTPROBNP, CHEM8, LIPASE, CMETADD #### Unless otherwise noted, all testing performed by [place] [address] CLIA: [id number] Construction Plumber: Maurice Coello M.D. FIO2 21.0 % Normal 21-100 [facility] Comment on above: Performed By: #### C BCWOD, PT, PTT, DDIMR, EDCTNI, NTPROBNP, CHEM8, LIPASE, CMETADD #### Unless otherwise noted, all testing performed by [place] [address] CLIA: [id number] Construction Plumber: Maurice Coello M.D. HCO3 molar conc (Bld) 26.6 mmol/L High 22-26 [facility] Comment on above: Performed By: #### C BCWOD, PT, PTT, DDIMR, EDCTNI, NTPROBNP, CHEM8, LIPASE, CMETADD #### Unless otherwise noted, all testing performed by [place] [address] CLIA: [id number] Construction Plumber: Maurice Coello M.D. Hematocrit Volume Fraction (Bld) 37.9 % Normal 36-46 [facility] Comment on above: Performed By: #### C BCWOD, PT, PTT, DDIMR, EDCTNI, NTPROBNP, CHEM8, LIPASE, CMETADD #### Unless otherwise noted, all testing performed by [place] [address] CLIA: [id number] Construction Plumber: Maurice Coello M.D. Hemoglobin mass conc (Bld) 94.4 % Normal 92-99 [facility] Comment on above: Performed By: #### C BCWOD, PT, PTT, DDIMR, EDCTNI, NTPROBNP, CHEM8, LIPASE, CMETADD #### Unless otherwise noted, all testing performed by [place] [address] CLIA: [id number] Construction Plumber: Maurice Coello M.D. Hemoglobin mass conc (Bld) 12.4 g/dL Normal 12.0-16.0 [facility] Comment on above: Performed By: #### C BCWOD, PT, PTT, DDIMR, EDCTNI, NTPROBNP, CHEM8, LIPASE, CMETADD #### Unless otherwise noted, all testing performed by [place] [address] CLIA: [id number] Construction Plumber: Maurice Coello M.D. Hemoglobin mass conc (Bld) 92.2 % Normal [address] [place] [address] Comment on above: Performed By: #### C BCWOD, PT, PTT, DDIMR, EDCTNI, NTPROBNP, CHEM8, LIPASE, CMETADD #### Unless otherwise noted, all testing performed by [place] [address] CLIA: [id number] Construction Plumber: Maurice Coello M.D. Methemoglobin 1.1 % Normal < 2.0 [facility] Comment on above: Performed By: #### C BCWOD, PT, PTT, DDIMR, EDCTNI, NTPROBNP, CHEM8, LIPASE, CMETADD #### Unless otherwise noted, all testing performed by [place] [address] CLIA: [id number] Construction Plumber: Maurice Coello M.D. O2 Device Room Air Normal [facility] Comment on above: Performed By: #### C BCWOD, PT, PTT, DDIMR, EDCTNI, NTPROBNP, CHEM8, LIPASE, CMETADD #### Unless otherwise noted, all testing performed by [place] [address] CLIA: [id number] Construction Plumber: Maurice Coello M.D. O2CT 7.2 mmol/L Normal [facility] Comment on above: Performed By: #### C BCWOD, PT, PTT, DDIMR, EDCTNI, NTPROBNP, CHEM8, LIPASE, CMETADD #### Unless otherwise noted, all testing performed by [place] [address] CLIA: [id number] Construction Plumber: Maurice Coello M.D. Oxygen ppres (Bld) 71.8 mm Hg Low 80-100 [facility] Comment on above: Performed By: #### C BCWOD, PT, PTT, DDIMR, EDCTNI, NTPROBNP, CHEM8, LIPASE, CMETADD #### Unless otherwise noted, all testing performed by [place] [address] CLIA: [id number] Construction Plumber: Maurice Coello M.D. PCO2 44.1 mm Hg Normal 35-45 [facility] Comment on above: Performed By: #### C BCWOD, PT, PTT, DDIMR, EDCTNI, NTPROBNP, CHEM8, LIPASE, CMETADD #### Unless otherwise noted, all testing performed by [place] [address] CLIA: [id number] Construction Plumber: Maurice Coello M.D. pCO2 (temp conv.) 44.1 mm Hg Normal 35.0-45.0 [facility] Comment on above: Performed By: #### C BCWOD, PT, PTT, DDIMR, EDCTNI, NTPROBNP, CHEM8, LIPASE, CMETADD #### Unless otherwise noted, all testing performed by [place] [phone] CLIA: [id number] Construction Plumber: Maurice Coello M.D. pH (Bld) 7.389 [pH] Normal 7.350-7.450 [facility] Comment on above: Performed By: #### C BCWOD, PT, PTT, DDIMR, EDCTNI, NTPROBNP, CHEM8, LIPASE, CMETADD #### Unless otherwise noted, all testing performed by [place] [address] CLIA: [id number] Construction Plumber: Maurice Coello M.D. Site (Bld Gas) RTBRACH Normal [facility] Comment on above: Performed By: #### C BCWOD, PT, PTT, DDIMR, EDCTNI, NTPROBNP, CHEM8, LIPASE, CMETADD #### Unless otherwise noted, all testing performed by [place] [address] CLIA: [id number] Construction Plumber: Maurice Coello M.D. 25-Hydroxy D Totalon 018 25-Hydroxy D Total 52 ng/mL Normal 30-100 [facility] Comment on above: Result Comment: Honorio oliva note that Fluorescein which is used in angiography has been shown to falsely elevate the results of Vitamin D with our current assay. Evidence suggests that patients undergoing fluorescein dye angiography can retain small amounts of fluorescein in the body for up to 48 to 72 hours post-treatment. In the cases of patients with renal insufficiency, retention could be much longer. Samples should be resubmitted post fluorescein clearance to ensure there is no interference with the Vitamin D test result. Vitamin D Status Range: Deficiency < 20 ng/mL Insufficiency 20-30 ng/mL Sufficiency 30-100 ng/mL Toxicity > 100 ng/mL Performed By: #### C BCWOD, PT, PTT, DDIMR, EDCTNI, NTPROBNP, CHEM8, LIPASE, CMETADD #### Unless otherwise noted, all testing performed by [place] [address] CLIA: [id number] Construction Plumber: Maurice Coello M.D. Albuminon 07-02-2018 Albumin mass conc 3.5 g/dL Normal 3.2-5.2 [facility] Comment on above: Performed By: #### C BCWOD, PT, PTT, DDIMR, EDCTNI, NTPROBNP, CHEM8, LIPASE, CMETADD #### Unless otherwise noted, all testing performed by [place] [address] CLIA: [id number] Construction Plumber: Maurice Coello M.D. Albumin mass conc 3.5 g/dL Invalid Interpretation Code 3.2 - 5.2 g/dL [facility] BUN and Creatinineon 018 Creatinine mass conc 1.48 mg/dL High 0.40-1.10 [facility] Comment on above: Performed By: #### C BCWOD, PT, PTT, DDIMR, EDCTNI, NTPROBNP, CHEM8, LIPASE, CMETADD #### Unless otherwise noted, all testing performed by [place] [address] CLIA: [id number] Construction Plumber: Maurice Coello M.D. GFR/1.73 sq M predicted among blacks MDRD vol rate/area (S/P/Bld) 43 mL/min/{1.73_m2} Low >60 [facility] Comment on above: Result Comment: Afri can Belgian GFR Calc Performed By: #### C BCWOD, PT, PTT, DDIMR, EDCTNI, NTPROBNP, CHEM8, LIPASE, CMETADD #### Unless otherwise noted, all testing performed by [place] [address] CLIA: [id number] Construction Plumber: Maurice Coello M.D. GFR/1.73 sq M predicted among non-blacks MDRD vol rate/area (S/P/Bld) 36 mL/min/{1.73_m2} Low >60 [facility] Comment on above: Result Comment: Non- GFR Calc eGFR is an estimated Glomerular Filtration Rate based on the value of the patient's serum creatinine. In outpatients, eGFR should be used as a helpful tool in screening for CKD. In inpatients or patients with acute renal failure, eGFR represents the GFR at the moment of the draw and should be used with caution. Performed By: #### C BCWOD, PT, PTT, DDIMR, EDCTNI, NTPROBNP, CHEM8, LIPASE, CMETADD #### Unless otherwise noted, all testing performed by [place] [address] CLIA: [id number] Construction Plumber: Maurice Coello M.D. Urea nitrogen mass conc 14 mg/dL Normal 8-25 [facility] Comment on above: Performed By: #### C BCWOD, PT, PTT, DDIMR, EDCTNI, NTPROBNP, CHEM8, LIPASE, CMETADD #### Unless otherwise noted, all testing performed by [facility] [address] [place] [id number] CLIA: [id number] Construction Plumber: Maurice Coello M.D. Creatinine mass conc 1.48 mg/dL High 0.4 - 1 .1 mg/dL [facility] GFR/1.73 sq M predicted among blacks MDRD vol rate/area (S/P/Bld) 43 mL/min/{1.73_m2} Low >60 ml/min/1.73sq .[facility] Comment on above: GFR Calc GFR/1.73 sq M predicted among non-blacks MDRD vol rate/area (S/P/Bld) 36 mL/min/{1.73_m2} Low >60 ml/min/1.73sq .[facility] Comment on above: Non- GFR Calc eGFR is an estimated Glomerular Filtration Rate based on the value of the patient's serum creatinine. In outpatients, eGFR should be used as a helpful tool in screening for CKD. In inpatients or patients with acute renal failure, eGFR represents the GFR at the moment of the draw and should be used with caution. Urea nitrogen mass conc 14 mg/dL Invalid Interpretation Code 8 - 25 mg/dL [facility] Calciumon 07-02-2018 Calcium mass conc 9.0 mg/dL Normal 8.4-10.2 [facility] Comment on above: Performed By: #### C BCWOD, PT, PTT, DDIMR, EDCTNI, NTPROBNP, CHEM8, LIPASE, CMETADD #### Unless otherwise noted, all testing performed by [facility] [address] [place] [address] CLIA: [id number] Construction Plumber: Maurice Coello M.D. Calcium Levelon 07-02-2018 Calcium mass conc 9.0 mg/dL Invalid Interpretation Code 8.4 - 10.2 mg/dL [facility] Electrolyte Panelon 08-27-20 18 Chloride molar conc 100 mmol/L Invalid Interpretation Code 98 - 108 mmol/L [facility] CO2 molar conc 28 mmol/L Invalid Interpretation Code 21 - 32 mmol/L [facility] Potassium molar conc 4.7 mmol/L Invalid Interpretation Code 3.5 - 5.1 mmol/L [facility] Sodium molar conc 133 mmol/L Low 135 - 145 mmol/L [facility] Electrolyteson 07-02-2018 Chloride molar conc 100 mmol/L Normal 98-108 [facility] Comment on above: Performed By: #### C BCWOD, PT, PTT, DDIMR, EDCTNI, NTPROBNP, CHEM8, LIPASE, CMETADD #### Unless otherwise noted, all testing performed by [place] [address] CLIA: [id number] Construction Plumber: Maurice Coello M.D. CO2 molar conc 28 mmol/L Normal 21-32 [facility] Comment on above: Performed By: #### C BCWOD, PT, PTT, DDIMR, EDCTNI, NTPROBNP, CHEM8, LIPASE, CMETADD #### Unless otherwise noted, all testing performed by [place] [address] CLIA: [id number] Construction Plumber: Maurice Coello M.D. Potassium molar conc 4.7 mmol/L Normal 3.5-5.1 [facility] Comment on above: Performed By: #### C BCWOD, PT, PTT, DDIMR, EDCTNI, NTPROBNP, CHEM8, LIPASE, CMETADD #### Unless otherwise noted, all testing performed by [place] [address] CLIA: [id number] Construction Plumber: Maurice Coello M.D. Sodium molar conc 133 mmol/L Low 135-145 [facility] Comment on above: Performed By: #### C BCWOD, PT, PTT, DDIMR, EDCTNI, NTPROBNP, CHEM8, LIPASE, CMETADD #### Unless otherwise noted, all testing performed by [place] [address] CLIA: [id number] Construction Plumber: Maurice Coello M.D. Hemoglobin and Hematocriton 07-02-2018 Hematocrit Auto Volume Fraction (Bld) 36.3 % Invalid Interpretation Code 34.4 - 44.8 % [facility] Hemoglobin mass conc (Bld) 11.7 g/dL Invalid Interpretation Code 11.6 - 15.4 g/dL [facility] Hgb and Hcton 07-02-2018 Hematocrit Volume Fraction (Bld) 36.3 % Normal 34.4-44.8 [facility] Comment on above: Performed By: #### C BCWOD, PT, PTT, DDIMR, EDCTNI, NTPROBNP, CHEM8, LIPASE, CMETADD #### Unless otherwise noted, all testing performed by [place] [address] CLIA: [id number] Construction Plumber: Maurice Coello M.D. Hemoglobin mass conc (Bld) 11.7 g/dL Normal 11.6-15.4 [facility] Comment on above: Performed By: #### C BCWOD, PT, PTT, DDIMR, EDCTNI, NTPROBNP, CHEM8, LIPASE, CMETADD #### Unless otherwise noted, all testing performed by [place] [address] CLIA: [id number] Construction Plumber: Maurice Coello M.D. Otheron 07-02-2018 Interpretation and review of laboratory results Abnormal Invalid Interpretation Code [facility] Parathyroid Hormoneon 2017 Parathyroid Hormone 107.5 pg/mL High 18.4-80.1 [facility] Comment on above: Result Comment: Samp les from patients routinely receiving high dose biotin therapy may show falsely depressed results. Additional information may be required for diagnosis. Performed By: #### C BCWOD, PT, PTT, DDIMR, EDCTNI, NTPROBNP, CHEM8, LIPASE, CMETADD #### Unless otherwise noted, all testing performed by [place] [address] CLIA: [id number] Construction Plumber: Maurice Coello M.D. Interpretation and review of laboratory results Abnormal Invalid Interpretation Code [facility] Parathyroid Hormone 107.5 pg/mL High 18.4 - 8 0.1 pg/mL [facility] Comment on above: Samples from patient s routinely receiving high dose biotin therapy may show falsely depressed results. Additional information may be required for diagnosis. Phosphoruson 07-02-2018 Phosphate mass conc 3.1 mg/dL Normal 2.7-4.5 [facility] Comment on above: Performed By: #### C BCWOD, PT, PTT, DDIMR, EDCTNI, NTPROBNP, CHEM8, LIPASE, CMETADD #### Unless otherwise noted, all testing performed by [place] [address] CLIA: [id number] Construction Plumber: Maurice Coello M.D. Phosphate mass conc 3.1 mg/dL Invalid Interpretation Code 2.7 - 4.5 mg/dL [facility] Protein Panel, Urineon 07-02 Creatinine, Urine Random 83.50 mg/dL Normal [facility] Comment on above: Result Comment: No e stablished reference range. Performed By: #### C BCWOD, PT, PTT, DDIMR, EDCTNI, NTPROBNP, CHEM8, LIPASE, CMETADD #### Unless otherwise noted, all testing performed by [place] [address] CLIA: [id number] Construction Plumber: Maurice Coello M.D. Protein Creatinine Ratio 0.50 High 0.0-0.2 [facility] Comment on above: Performed By: #### C BCWOD, PT, PTT, DDIMR, EDCTNI, NTPROBNP, CHEM8, LIPASE, CMETADD #### Unless otherwise noted, all testing performed by [place] [address] CLIA: [id number] Construction Plumber: Maurice Coello M.D. Protein mass conc (U) 42.0 mg/dL Normal [facility] Comment on above: Performed By: #### C BCWOD, PT, PTT, DDIMR, EDCTNI, NTPROBNP, CHEM8, LIPASE, CMETADD #### Unless otherwise noted, all testing performed by [place] [address] CLIA: [id number] Construction Plumber: Maurice Coello M.D. Creatinine, Urine Random 83.50 mg/dL Invalid Interpretation Code [facility] Comment on above: No established refer ence range. Interpretation and review of laboratory results Abnormal Invalid Interpretation Code [facility] Protein, Urine Random 42.0 mg/dL Invalid Interpretation Code [facility] Protein/Creatinine Ratio, Urine 0.[address] [facility] TSHon 07-02-2018 Thyrotropin Qn 2.08 uIU/mL Normal 0.320-5.000 [facility] Comment on above: Result Comment: Samp les from patients routinely receiving high dose biotin therapy (100-300 mg/day) may show falsely decreased results. Please correlate clinically. Performed By: #### C BCWOD, PT, PTT, DDIMR, EDCTNI, NTPROBNP, CHEM8, LIPASE, CMETADD #### Unless otherwise noted, all testing performed by [place] [address] CLIA: [id number] Construction Plumber: Maurice Coello M.D. Thyrotropin Qn 2.08 m[IU]/L Invalid Interpretation Code [facility] Comment on above: Samples from patient s routinely receiving high dose biotin therapy (100-300 mg/day) may show falsely decreased results. Please correlate clinically. Thryroglobulin Tumor Mrkron 07-02-2018 Thyroglobulin Ab Qn 1.6 [IU]/mL Normal 0.0-3.9 [facility] Comment on above: Result Comment: Valu es obtained from different assay methods or kits may be different and cannot be used intergchangeably. Assay performed by [employer] Immunoassay. Test Performed by [facility] [address] [place] [address] Performed By: #### C BCWOD, PT, PTT, DDIMR, EDCTNI, NTPROBNP, CHEM8, LIPASE, CMETADD #### Unless otherwise noted, all testing performed by [place] [address] CLIA: [id number] Construction Plumber: Maurice Coello M.D. Thyroglobulin, Serum < 0.1 Normal <0.1 [facility] Comment on above: Result Comment: Refe rence range applies to athyrotic individuals. Patients with an intact thyroid are expected to have levels less than or equal to 35 ng/ml. Assay performed by [facility] Performed By: #### C BCWOD, PT, PTT, DDIMR, EDCTNI, NTPROBNP, CHEM8, LIPASE, CMETADD #### Unless otherwise noted, all testing performed by [place] [address] CLIA: [id number] [employer]umber: Maurice Coello M.D. Vitamin D, Total, 25-OHon Vitamin D, 25-Hydroxy, Total 52 ng/mL Invalid Interpretation Code 30 - 100 ng/mL [facility] Comment on above: Please note that Flu orescein which is used in angiography has been shown to falsely elevate the results of Vitamin D with our current assay. Evidence suggests that patients undergoing fluorescein dye angiography can retain small amounts of fluorescein in the body for up to 48 to 72 hours post-treatment. In the cases of patients with renal insufficiency, retention could be much longer. Samples should be resubmitted post fluorescein clearance to ensure there is no interference with the Vitamin D test result. Vitamin D Status Range: Deficiency < 20 ng/mL Insufficiency 20-30 ng/mL Sufficiency 30-100 ng/mL Toxicity > 100 ng/mL Basic Metabolic Panelon 06-06 Calcium mass conc 8.7 mg/dL Normal 8.4-10.2 [facility] Comment on above: Performed By: #### C BCWOD, PT, PTT, DDIMR, EDCTNI, NTPROBNP, CHEM8, LIPASE, CMETADD #### Unless otherwise noted, all testing performed by [place] [address] CLIA: [id number] [employer]umber: Maurice Coello M.D. Chloride molar conc 99 mmol/L Normal 98-108 [facility] Comment on above: Performed By: #### C BCWOD, PT, PTT, DDIMR, EDCTNI, NTPROBNP, CHEM8, LIPASE, CMETADD #### Unless otherwise noted, all testing performed by [place] [address] CLIA: [id number] Construction Plumber: Maurice Coello M.D. CO2 molar conc 29 mmol/L Normal 21-32 [facility] Comment on above: Performed By: #### C BCWOD, PT, PTT, DDIMR, EDCTNI, NTPROBNP, CHEM8, LIPASE, CMETADD #### Unless otherwise noted, all testing performed by [place] [address] CLIA: [id number] [employer]umber: Maurice Coello M.D. Creatinine mass conc 1.50 mg/dL High 0.40-1.10 [facility] Comment on above: Performed By: #### C BCWOD, PT, PTT, DDIMR, EDCTNI, NTPROBNP, CHEM8, LIPASE, CMETADD #### Unless otherwise noted, all testing performed by [place] [address] CLIA: [id number] Construction Plumber: Maurice Coello M.D. GFR/1.73 sq M predicted among blacks MDRD vol rate/area (S/P/Bld) 43 mL/min/{1.73_m2} Low >60 [facility] Comment on above: Result Comment: Afri can Belgian GFR Calc Performed By: #### C BCWOD, PT, PTT, DDIMR, EDCTNI, NTPROBNP, CHEM8, LIPASE, CMETADD #### Unless otherwise noted, all testing performed by [place] [address] CLIA: [id number] Construction Plumber: Maurice Coello M.D. GFR/1.73 sq M predicted among non-blacks MDRD vol rate/area (S/P/Bld) 35 mL/min/{1.73_m2} Low >60 [facility] Comment on above: Result Comment: Non- GFR Calc eGFR is an estimated Glomerular Filtration Rate based on the value of the patient's serum creatinine. In outpatients, eGFR should be used as a helpful tool in screening for CKD. In inpatients or patients with acute renal failure, eGFR represents the GFR at the moment of the draw and should be used with caution. Performed By: #### C BCWOD, PT, PTT, DDIMR, EDCTNI, NTPROBNP, CHEM8, LIPASE, CMETADD #### Unless otherwise noted, all testing performed by [place] [address] CLIA: [id number] Construction Plumber: Maurice Coello M.D. Glucose mass conc 108 mg/dL High 70-99 [facility] Comment on above: Result Comment: This test result might be falsely depressed or falsely elevated on samples drawn from patients taking Sulfasalazine and Sulfapyridine. Venipuncture should occur prior to taking either of these drugs. Performed By: #### C BCWOD, PT, PTT, DDIMR, EDCTNI, NTPROBNP, CHEM8, LIPASE, CMETADD #### Unless otherwise noted, all testing performed by [place] [address] CLIA: [id number] Construction Plumber: Maurice Coello M.D. Potassium molar conc 5.2 mmol/L High 3.5-5.1 [facility] Comment on above: Performed By: #### C BCWOD, PT, PTT, DDIMR, EDCTNI, NTPROBNP, CHEM8, LIPASE, CMETADD #### Unless otherwise noted, all testing performed by [place] [address] CLIA: [id number] Construction Plumber: Maurice Coello M.D. Sodium molar conc 133 mmol/L Low 135-145 [facility] Comment on above: Performed By: #### C BCWOD, PT, PTT, DDIMR, EDCTNI, NTPROBNP, CHEM8, LIPASE, CMETADD #### Unless otherwise noted, all testing performed by [place] [address] CLIA: [id number] Construction Plumber: Maurice Coello M.D. Urea nitrogen mass conc 13 mg/dL Normal 8-25 O [facility] Comment on above: Performed By: #### C BCWOD, PT, PTT, DDIMR, EDCTNI, NTPROBNP, CHEM8, LIPASE, CMETADD #### Unless otherwise noted, all testing performed by [place] [address] CLIA: [id number] Construction Plumber: Maurice Coello M.D. CBC with Diffon 06-21-2018 Basophils #/vol (Bld) 0.1 K/mcL Normal 0-0.2 [facility] Comment on above: Performed By: #### C BCWOD, PT, PTT, DDIMR, EDCTNI, NTPROBNP, CHEM8, LIPASE, CMETADD #### Unless otherwise noted, all testing performed by [place] [address] CLIA: [id number] Construction Plumber: Maurice Coello M.D. Basophils/100 WBC (Bld) 1.0 % Normal [facility] Comment on above: Performed By: #### C BCWOD, PT, PTT, DDIMR, EDCTNI, NTPROBNP, CHEM8, LIPASE, CMETADD #### Unless otherwise noted, all testing performed by [place] [address] CLIA: [id number] Construction Plumber: Maurice Coello M.D. Eosinophils #/vol (Bld) 0.2 K/mcL Normal 0-0.5 [facility] Comment on above: Performed By: #### C BCWOD, PT, PTT, DDIMR, EDCTNI, NTPROBNP, CHEM8, LIPASE, CMETADD #### Unless otherwise noted, all testing performed by [place] [address] CLIA: [id number] Construction Plumber: Maurice Coello M.D. Eosinophils/100 WBC (Bld) 2.3 % Normal [facility] Comment on above: Performed By: #### C BCWOD, PT, PTT, DDIMR, EDCTNI, NTPROBNP, CHEM8, LIPASE, CMETADD #### Unless otherwise noted, all testing performed by [place] [address] CLIA: [id number] Construction Plumber: Maurice Coello M.D. Erythrocyte distribution width Ratio (RBC) 15.4 % High 10.0-14.4 [facility] Comment on above: Performed By: #### C BCWOD, PT, PTT, DDIMR, EDCTNI, NTPROBNP, CHEM8, LIPASE, CMETADD #### Unless otherwise noted, all testing performed by [place] [address] CLIA: [id number] Construction Plumber: Maurice Coello M.D. Hematocrit Volume Fraction (Bld) 33.9 % Low 34.4-44.8 [facility] Comment on above: Performed By: #### C BCWOD, PT, PTT, DDIMR, EDCTNI, NTPROBNP, CHEM8, LIPASE, CMETADD #### Unless otherwise noted, all testing performed by [place] [address] CLIA: [id number] Construction Plumber: Maurice Coello M.D. Hemoglobin mass conc (Bld) 10.7 g/dL Low 11.6-15.4 [facility] Comment on above: Performed By: #### C BCWOD, PT, PTT, DDIMR, EDCTNI, NTPROBNP, CHEM8, LIPASE, CMETADD #### Unless otherwise noted, all testing performed by [place] [address] CLIA: [id number] Construction Plumber: Maurice Coello M.D. Lymphocytes #/vol (Bld) 1.6 K/mcL Normal 1.0-3.7 [facility] Comment on above: Performed By: #### C BCWOD, PT, PTT, DDIMR, EDCTNI, NTPROBNP, CHEM8, LIPASE, CMETADD #### Unless otherwise noted, all testing performed by [place] [address] CLIA: [id number] Construction Plumber: Maurice Coello M.D. Lymphocytes/100 WBC (Bld) 24.6 % Normal [facility] Comment on above: Performed By: #### C BCWOD, PT, PTT, DDIMR, EDCTNI, NTPROBNP, CHEM8, LIPASE, CMETADD #### Unless otherwise noted, all testing performed by [place] [address] CLIA: [id number] Construction Plumber: Maurice Coello M.D. MCH Entitic mass (RBC) 25.4 pg Low 27.9-33.9 [facility] Comment on above: Performed By: #### C BCWOD, PT, PTT, DDIMR, EDCTNI, NTPROBNP, CHEM8, LIPASE, CMETADD #### Unless otherwise noted, all testing performed by [place] [address] CLIA: [id number] Construction Plumber: Maurice Coello M.D. MCHC mass conc (RBC) 31.5 g/dL Low 33.1-35.1 [facility] Comment on above: Performed By: #### C BCWOD, PT, PTT, DDIMR, EDCTNI, NTPROBNP, CHEM8, LIPASE, CMETADD #### Unless otherwise noted, all testing performed by [address] [place], [place] [address] CLIA: [id number] Construction Plumber: Maurice Coello M.D. MCV Entitic volume (RBC) 80.7 fL Low 82.6-98.9 [facility] Comment on above: Performed By: #### C BCWOD, PT, PTT, DDIMR, EDCTNI, NTPROBNP, CHEM8, LIPASE, CMETADD #### Unless otherwise noted, all testing performed by [place] [address] CLIA: [id number] Construction Plumber: Maurice Coello M.D. Monocytes #/vol (Bld) 0.6 K/mcL Normal 0.1-0.6 [facility] Comment on above: Performed By: #### C BCWOD, PT, PTT, DDIMR, EDCTNI, NTPROBNP, CHEM8, LIPASE, CMETADD #### Unless otherwise noted, all testing performed by [place] [address] CLIA: [id number] Construction Plumber: Maurcie Coello M.D. Monocytes/100 WBC (Bld) 8.8 % Normal [facility] Comment on above: Performed By: #### C BCWOD, PT, PTT, DDIMR, EDCTNI, NTPROBNP, CHEM8, LIPASE, CMETADD #### Unless otherwise noted, all testing performed by [place] [address] CLIA: [id number] Construction Plumber: Maurice Coello M.D. Neutrophils #/vol (Bld) 4.2 K/mcL Normal 1.2-6.9 [facility] Comment on above: Performed By: #### C BCWOD, PT, PTT, DDIMR, EDCTNI, NTPROBNP, CHEM8, LIPASE, CMETADD #### Unless otherwise noted, all testing performed by [place] [address] CLIA: [id number] Construction Plumber: Maurice Coello M.D. Platelet mean volume Entitic volume (Bld) 8.1 fL Normal 7.0-10.6 [facility] Comment on above: Performed By: #### C BCWOD, PT, PTT, DDIMR, EDCTNI, NTPROBNP, CHEM8, LIPASE, CMETADD #### Unless otherwise noted, all testing performed by [place] [address] CLIA: [id number] Construction Plumber: Maurice Coello M.D. Platelets #/vol (Bld) 309 K/mcL Normal 162-402 [facility] Comment on above: Performed By: #### C BCWOD, PT, PTT, DDIMR, EDCTNI, NTPROBNP, CHEM8, LIPASE, CMETADD #### Unless otherwise noted, all testing performed by [place] [address] CLIA: [id number] Construction Plumber: Maurice Coello M.D. RBC #/vol (Bld) 4.20 M/mcL Normal 3.7-5.0 [facility] Comment on above: Performed By: #### C BCWOD, PT, PTT, DDIMR, EDCTNI, NTPROBNP, CHEM8, LIPASE, CMETADD #### Unless otherwise noted, all testing performed by [place] [address] CLIA: [id number] Construction Plumber: Maurice Coello M.D. Segmented Neut % 63.3 % Normal [facility] Comment on above: Performed By: #### C BCWOD, PT, PTT, DDIMR, EDCTNI, NTPROBNP, CHEM8, LIPASE, CMETADD #### Unless otherwise noted, all testing performed by [place] [address] CLIA: [id number] Construction Plumber: Maurice Coello M.D. WBC #/vol (Bld) 6.6 K/mcL Normal 3.4-10.6 [facility] Comment on above: Performed By: #### C BCWOD, PT, PTT, DDIMR, EDCTNI, NTPROBNP, CHEM8, LIPASE, CMETADD #### Unless otherwise noted, all testing performed by [place] [address] CLIA: [id number] Construction Plumber: Maurice Coello M.D. Cardiac Troponin-Ion 018 Troponin I.cardiac mass conc No Biomarker evidence of myocardial injury within the past 14 hours. Normal [facility] Comment on above: Performed By: #### C BCWOD, PT, PTT, DDIMR, EDCTNI, NTPROBNP, CHEM8, LIPASE, CMETADD #### Unless otherwise noted, all testing performed by [place] [address] CLIA: [id number] Construction Plumber: Maurice Coello M.D. Troponin I.cardiac mass conc ng/mL Normal < 45.0 [facility] Comment on above: Result Comment: Elev ation of troponin indicates some degree of myocardial necrosis but unless there is a significant rise and/or fall (if elevated) identified, it unlikely that an acute event has taken place Samples from patients routinely receiving high dose biotin therapy (100-300 mg/day) may show falsely decreased results. Please correlate clinically. Performed By: #### C BCWOD, PT, PTT, DDIMR, EDCTNI, NTPROBNP, CHEM8, LIPASE, CMETADD #### Unless otherwise noted, all testing performed by [address] [place], [place] [address] CLIA: [id number] Construction [employer]umber: Maurice Coello M.D. LUNG VENTILATION AND PERFUSI ONon 06-21-2018 LUNG VENTILATION AND PERFUSION Final Report Accession No: [id number] Performed: Jun 21 2018 12:54PM Examination: LUNG VENTILATION AND PERFUSION EXAMINATION: VENTILATION/PERFUSION LUNG SCINTIGRAPHY HISTORY: Chest pain, tachycardia, and positive D-dimer. TECHNIQUE: Images of the lungs were obtained in multiple projections after the inhalation of 39.3 mCi (less than 2 mCi delivered) of technetium-99m DTPA aerosol and after the intravenous administration of 5.8 mCi of technetium-99m MAA. COMPARISON: Prior ventilation/perfusion lung scintigraphy dated 01/30/2018. Correlation with chest radiograph dated 06/20/2018. FINDINGS: The comparison chest radiograph demonstrates no focal consolidation or pleural effusion. Ventilation images demonstrate clumping and central deposition of the aerosol that is more pronounced compared to the prior exam. Decreased activity in the periphery of both lungs is more heterogeneous compared to the prior exam. Lung perfusion is more heterogeneous compared to the prior exam. There is new matched moderate-sized perfusion defect in the anterior basal and lateral basal segments of the right lower lobe. Matched nonsegmental decreased perfusion in the posterior left lung. No large or moderate-sized mismatched segmental perfusion defect. IMPRESSION: Low probability of pulmonary embolism (less than 20% likelihood). Interpreting Physician: STEVEN FINCH M.D. Trans: dw : cc: Normal [facility] Basic Metabolic Panelon 06-06 Calcium mass conc 8.8 mg/dL Normal 8.4-10.2 [facility] Comment on above: Performed By: #### C BCWOD, PT, PTT, DDIMR, EDCTNI, NTPROBNP, CHEM8, LIPASE, CMETADD #### Unless otherwise noted, all testing performed by [address] [place] [id number] CLIA: [id number] Construction Plumber: Maurice Coello M.D. Chloride molar conc 98 mmol/L Normal 98-108 [facility] Comment on above: Performed By: #### C BCWOD, PT, PTT, DDIMR, EDCTNI, NTPROBNP, CHEM8, LIPASE, CMETADD #### Unless otherwise noted, all testing performed by [place] [address] CLIA: [id number] Construction Plumber: Maruice Coello M.D. CO2 molar conc 24 mmol/L Normal 21-32 [facility] Comment on above: Performed By: #### C BCWOD, PT, PTT, DDIMR, EDCTNI, NTPROBNP, CHEM8, LIPASE, CMETADD #### Unless otherwise noted, all testing performed by [place] [address] CLIA: [id number] Construction Plumber: Maurice Coello M.D. Creatinine mass conc 1.51 mg/dL High 0.40-1.10 [facility] Comment on above: Performed By: #### C BCWOD, PT, PTT, DDIMR, EDCTNI, NTPROBNP, CHEM8, LIPASE, CMETADD #### Unless otherwise noted, all testing performed by [place] [address] CLIA: [id number] Construction Plumber: Maurice Coello M.D. GFR/1.73 sq M predicted among blacks MDRD vol rate/area (S/P/Bld) 43 mL/min/{1.73_m2} Low >60 [facility] Comment on above: Result Comment: Afri can Belgian GFR Calc Performed By: #### C BCWOD, PT, PTT, DDIMR, EDCTNI, NTPROBNP, CHEM8, LIPASE, CMETADD #### Unless otherwise noted, all testing performed by [place] [address] CLIA: [id number] Construction Plumber: Maurice Coello M.D. GFR/1.73 sq M predicted among non-blacks MDRD vol rate/area (S/P/Bld) 35 mL/min/{1.73_m2} Low >60 [facility] Comment on above: Result Comment: Non- GFR Calc eGFR is an estimated Glomerular Filtration Rate based on the value of the patient's serum creatinine. In outpatients, eGFR should be used as a helpful tool in screening for CKD. In inpatients or patients with acute renal failure, eGFR represents the GFR at the moment of the draw and should be used with caution. Performed By: #### C BCWOD, PT, PTT, DDIMR, EDCTNI, NTPROBNP, CHEM8, LIPASE, CMETADD #### Unless otherwise noted, all testing performed by [place] [address] CLIA: [id number] Construction Plumber: Maurice Coello M.D. Glucose mass conc 113 mg/dL High 70-99 [facility] Comment on above: Result Comment: This test result might be falsely depressed or falsely elevated on samples drawn from patients taking Sulfasalazine and Sulfapyridine. Venipuncture should occur prior to taking either of these drugs. Performed By: #### C BCWOD, PT, PTT, DDIMR, EDCTNI, NTPROBNP, CHEM8, LIPASE, CMETADD #### Unless otherwise noted, all testing performed by [place] [address] CLIA: [id number] Construction Plumber: Maurice Coello M.D. Potassium molar conc 4.9 mmol/L Normal 3.5-5.1 [facility] Comment on above: Performed By: #### C BCWOD, PT, PTT, DDIMR, EDCTNI, NTPROBNP, CHEM8, LIPASE, CMETADD #### Unless otherwise noted, all testing performed by [place] [address] CLIA: [id number] Construction Plumber: Maurice Coello M.D. Sodium molar conc 132 mmol/L Low 135-145 [facility] Comment on above: Performed By: #### C BCWOD, PT, PTT, DDIMR, EDCTNI, NTPROBNP, CHEM8, LIPASE, CMETADD #### Unless otherwise noted, all testing performed by [place] [phone] CLIA: [id number] Construction Plumber: Maurice Coello M.D. Urea nitrogen mass conc 13 mg/dL Normal 8-25 O [facility] Comment on above: Performed By: #### C BCWOD, PT, PTT, DDIMR, EDCTNI, NTPROBNP, CHEM8, LIPASE, CMETADD #### Unless otherwise noted, all testing performed by [place] [address] CLIA: [id number] Construction Plumber: Maurice Coello M.D. CBC w/o Diffon 06-20-2018 Erythrocyte distribution width Ratio (RBC) 15.4 % High 10.0-14.4 [facility] Comment on above: Performed By: #### C BCWOD, PT, PTT, DDIMR, EDCTNI, NTPROBNP, CHEM8, LIPASE, CMETADD #### Unless otherwise noted, all testing performed by [place] [address] CLIA: [id number] Construction Plumber: Maurice Coello M.D. Hematocrit Volume Fraction (Bld) 36.2 % Normal 34.4-44.8 [facility] Comment on above: Performed By: #### C BCWOD, PT, PTT, DDIMR, EDCTNI, NTPROBNP, CHEM8, LIPASE, CMETADD #### Unless otherwise noted, all testing performed by [place] [address] CLIA: [id number] Construction Plumber: Maurice Coello M.D. Hemoglobin mass conc (Bld) 11.7 g/dL Normal 11.6-15.4 [facility] Comment on above: Performed By: #### C BCWOD, PT, PTT, DDIMR, EDCTNI, NTPROBNP, CHEM8, LIPASE, CMETADD #### Unless otherwise noted, all testing performed by [place] [address] CLIA: [id number] Construction Plumber: Maurice Coello M.D. MCH Entitic mass (RBC) 25.8 pg Low 27.9-33.9 [facility] Comment on above: Performed By: #### C BCWOD, PT, PTT, DDIMR, EDCTNI, NTPROBNP, CHEM8, LIPASE, CMETADD #### Unless otherwise noted, all testing performed by [place] [address] CLIA: [id number] Construction Plumber: Maurice Coello M.D. MCHC mass conc (RBC) 32.3 g/dL Low 33.1-35.1 [facility] Comment on above: Performed By: #### C BCWOD, PT, PTT, DDIMR, EDCTNI, NTPROBNP, CHEM8, LIPASE, CMETADD #### Unless otherwise noted, all testing performed by [place] [address] CLIA: [id number] Construction Plumber: Maurice Coello M.D. MCV Entitic volume (RBC) 79.7 fL Low 82.6-98.9 [facility] Comment on above: Performed By: #### C BCWOD, PT, PTT, DDIMR, EDCTNI, NTPROBNP, CHEM8, LIPASE, CMETADD #### Unless otherwise noted, all testing performed by [place] [address] CLIA: [id number] Construction Plumber: Maurice Coello M.D. Platelet mean volume Entitic volume (Bld) 7.5 fL Normal 7.0-10.6 [facility] Comment on above: Performed By: #### C BCWOD, PT, PTT, DDIMR, EDCTNI, NTPROBNP, CHEM8, LIPASE, CMETADD #### Unless otherwise noted, all testing performed by [place] [address] CLIA: [id number] Construction Plumber: Maurice Coello M.D. Platelets #/vol (Bld) 341 K/mcL Normal 162-402 [facility] Comment on above: Performed By: #### C BCWOD, PT, PTT, DDIMR, EDCTNI, NTPROBNP, CHEM8, LIPASE, CMETADD #### Unless otherwise noted, all testing performed by [place] [address] CLIA: [id number] Construction Plumber: Maurice Coello M.D. RBC #/vol (Bld) 4.53 M/mcL Normal 3.7-5.0 [facility] Comment on above: Performed By: #### C BCWOD, PT, PTT, DDIMR, EDCTNI, NTPROBNP, CHEM8, LIPASE, CMETADD #### Unless otherwise noted, all testing performed by [place] [address] CLIA: [id number] Construction Plumber: Maurice oCello M.D. WBC #/vol (Bld) 9.1 K/mcL Normal 3.4-10.6 [facility] Comment on above: Performed By: #### C BCWOD, PT, PTT, DDIMR, EDCTNI, NTPROBNP, CHEM8, LIPASE, CMETADD #### Unless otherwise noted, all testing performed by [place] [address] CLIA: [id number] Construction Plumber: Maurice Coello M.D. CHEST (ONE VIEW ONLY)on 06-06 CHEST (ONE VIEW ONLY) Final Report Accession No: [id number] Performed: Jun 20 2018 5:35PM Examination: CHEST (ONE VIEW ONLY) CHEST RADIOGRAPH: CLINICAL HISTORY: Chest pain. COMPARISON: 01/29/2018. TECHNIQUE: Chest (one view only). FINDINGS: No visible pneumothorax or large pleural effusion. No focal airspace consolidation. Right upper lobe granuloma is unchanged from the prior exam. Punctate right lower lobe granuloma again noted. Unchanged cardiomediastinal silhouette and osseous structures including postsurgical changes noted at the right proximal humerus. Overlying wires obscure the underlying structures. IMPRESSION: No acute pulmonary abnormality. Interpreting Physician: KELSEY SCHMITZ M.D. Trans: tk : cc: Normal [facility] CPKon 06-20-2018 CPK 413 U/L High 40-170 [facility] Comment on above: Performed By: #### C BCWOD, PT, PTT, DDIMR, EDCTNI, NTPROBNP, CHEM8, LIPASE, CMETADD #### Unless otherwise noted, all testing performed by [place] [address] CLIA: [id number] Construction Plumber: Maurice Coello M.D. Cardiac Troponin-Ion 018 Troponin I.cardiac mass conc ng/mL Normal < 45.0 [facility] Comment on above: Result Comment: Elev ation of troponin indicates some degree of myocardial necrosis but unless there is a significant rise and/or fall (if elevated) identified, it unlikely that an acute event has taken place Samples from patients routinely receiving high dose biotin therapy (100-300 mg/day) may show falsely decreased results. Please correlate clinically. Performed By: #### C BCWOD, PT, PTT, DDIMR, EDCTNI, NTPROBNP, CHEM8, LIPASE, CMETADD #### Unless otherwise noted, all testing performed by [place] [address] CLIA: [id number] Construction Plumber: Maurice Coello M.D. D-Dimeron 06-20-2018 D-Dimer 0.90 mcg/ml (FEU) High < .5 [facility] Comment on above: Result Comment: This test is intended for use in conjunction with a clinical pretest probability (PTP) assessment model to exclude pulmonary embolism (PE) and deep vein thrombosis (DVT) in outpatients suspected of PE or DVT. Performed By: #### C BCWOD, PT, PTT, DDIMR, EDCTNI, NTPROBNP, CHEM8, LIPASE, CMETADD #### Unless otherwise noted, all testing performed by [place] [address] CLIA: [id number] Construction Plumber: Maurice Coello M.D. ED Cardiac Troponin-Ion 06-06 Troponin I.cardiac mass conc ng/mL Normal < 45 [facility] Comment on above: Result Comment: Elev ation of troponin indicates some degree of myocardial necrosis but unless there is a significant rise and/or fall (if elevated) identified, it unlikely that an acute event has taken place Samples from patients routinely receiving high dose biotin therapy (100-300 mg/day) may show falsely decreased results. Please correlate clinically. Performed By: #### C BCWOD, PT, PTT, DDIMR, EDCTNI, NTPROBNP, CHEM8, LIPASE, CMETADD #### Unless otherwise noted, all testing performed by [place] [address] CLIA: [id number] Construction Plumber: Maurice Coello M.D. Lipid Panelon 06-20-2018 Cholesterol in HDL mass conc 41 mg/dL Normal 40-59 [facility] Comment on above: Performed By: #### C BCWOD, PT, PTT, DDIMR, EDCTNI, NTPROBNP, CHEM8, LIPASE, CMETADD #### Unless otherwise noted, all testing performed by [place] [address] CLIA: [id number] Construction Plumber: Maurice Coello M.D. Cholesterol in LDL mass conc 122 mg/dL Normal 10-150 [facility] Comment on above: Performed By: #### C BCWOD, PT, PTT, DDIMR, EDCTNI, NTPROBNP, CHEM8, LIPASE, CMETADD #### Unless otherwise noted, all testing performed by [place] [address] CLIA: [id number] Construction Plumber: Maurice Coello M.D. Cholesterol in VLDL mass conc 42 mg/dL High 5-40 [facility] Comment on above: Performed By: #### C BCWOD, PT, PTT, DDIMR, EDCTNI, NTPROBNP, CHEM8, LIPASE, CMETADD #### Unless otherwise noted, all testing performed by [place] [address] CLIA: [id number] Construction Plumber: Maurice Coello M.D. Cholesterol mass conc 205 mg/dL High 100-199 [facility] Comment on above: Performed By: #### C BCWOD, PT, PTT, DDIMR, EDCTNI, NTPROBNP, CHEM8, LIPASE, CMETADD #### Unless otherwise noted, all testing performed by [place] [address] CLIA: [id number] Construction Plumber: Maurice Coello M.D. Cholesterol.total/Camille sterol in HDL mass ratio 5.0 {ratio} Normal 3.2-5.0 [facility] Comment on above: Result Comment: Ryne le Coronary Heart Disease Risk Factor (CHDRF): Average risk= 4.4 1/2 Average risk= 3.3 2 times Average risk= 7.1 Performed By: #### C BCWOD, PT, PTT, DDIMR, EDCTNI, NTPROBNP, CHEM8, LIPASE, CMETADD #### Unless otherwise noted, all testing performed by [place] [address] CLIA: [id number] Construction Plumber: Maurice Coello M.D. Triglyceride mass conc 209 mg/dL High 25-120 [facility] Comment on above: Performed By: #### C BCWOD, PT, PTT, DDIMR, EDCTNI, NTPROBNP, CHEM8, LIPASE, CMETADD #### Unless otherwise noted, all testing performed by [place] [address] CLIA: [id number] Construction Plumber: Maurice Coello M.D. Troponin I.cardiac mass conc No Biomarker evidence of myocardial injury within the past 14 hours. Normal [facility] Comment on above: Performed By: #### C BCWOD, PT, PTT, DDIMR, EDCTNI, NTPROBNP, CHEM8, LIPASE, CMETADD #### Unless otherwise noted, all testing performed by [facility] [place] [address] CLIA: [id number] Construction Plumber: Maurice Coello M.D. NT-Pro BNP, Serumon 06-20-20 18 Natriuretic peptide B mass conc (Bld) 494 pg/mL High 0-125 [facility] Comment on above: Performed By: #### C BCWOD, PT, PTT, DDIMR, EDCTNI, NTPROBNP, CHEM8, LIPASE, CMETADD #### Unless otherwise noted, all testing performed by [place] [address] CLIA: [id number] Construction Plumber: Maurice Coello M.D. Partial Thromboplastin Timeo 06-20-2018 aPTT Coag time (Bld) 30 s Normal 23.0-34.0 [facility] Comment on above: Result Comment: Uday silva therapeutic range for PTT is 68-104 sec. Performed By: #### C BCWOD, PT, PTT, DDIMR, EDCTNI, NTPROBNP, CHEM8, LIPASE, CMETADD #### Unless otherwise noted, all testing performed by [place] [address] CLIA: [id number] Construction Plumber: Maurice Coello M.D. Protimeon 06-20-2018 INR Coag RelTime (PPP) 0.99 {INR} Normal [facility] Comment on above: Result Comment: The [employer] recommended therapeutic range for Warfarin (Coumadin) therapy goals: PROPHYLAXIS/TREATMENT of: INR Venous Thrombosis, Pulmonary Embolism 2.0-3.0 Prevention of VTE (Orthopedic Surgery) 2.0-3.0 Atrial Fibrillation 2.0-3.0 Myocardial Infarction 2.0-3.0 Mechanical Prosthetic Heart Valves (Aortic position) 2.0-3.0 Mechanical Prosthetic Heart Valves (Mitral Position) 2.5-3.5 [employer] evidence-based clinical practice guidelines. CHEST. 2012 ( ed) Performed By: #### C BCWOD, PT, PTT, DDIMR, EDCTNI, NTPROBNP, CHEM8, LIPASE, CMETADD #### Unless otherwise noted, all testing performed by [place] [address] CLIA: [id number] Construction Plumber: Maurice Coello M.D. Prothrombin time (PT) Coag time (PPP) 12.8 s Normal 11.8-14.3 [facility] Comment on above: Performed By: #### C BCWOD, PT, PTT, DDIMR, EDCTNI, NTPROBNP, CHEM8, LIPASE, CMETADD #### Unless otherwise noted, all testing performed by [place] [address] CLIA: [id number] Construction Plumber: Maurice Coello M.D. Urinalysis, Routineon 2017 Bilirubin,Urine Negative Normal NEG;NEGATIVE [facility] Comment on above: Performed By: #### C BCWOD, PT, PTT, DDIMR, EDCTNI, NTPROBNP, CHEM8, LIPASE, CMETADD #### Unless otherwise noted, all testing performed by [place] [address] CLIA: [id number] Construction Plumber: Maurice Coello M.D. Blood,Urine Negative Normal NEG;NEGATIVE [facility] Comment on above: Performed By: #### C BCWOD, PT, PTT, DDIMR, EDCTNI, NTPROBNP, CHEM8, LIPASE, CMETADD #### Unless otherwise noted, all testing performed by [place] [address] CLIA: [id number] Construction Plumber: Maurice Coello M.D. Character Nom (U) Clear Normal [facility] Comment on above: Performed By: #### C BCWOD, PT, PTT, DDIMR, EDCTNI, NTPROBNP, CHEM8, LIPASE, CMETADD #### Unless otherwise noted, all testing performed by [place] [address] CLIA: [id number] Construction Plumber: Maurice Coello M.D. Color Nom (U) Yellow Normal [facility] Comment on above: Performed By: #### C BCWOD, PT, PTT, DDIMR, EDCTNI, NTPROBNP, CHEM8, LIPASE, CMETADD #### Unless otherwise noted, all testing performed by [place] [address] CLIA: [id number] Construction Plumber: Maurice Coello M.D. Glucose Ql (U) Negative Normal NEG;NEGATIVE [facility] Comment on above: Performed By: #### C BCWOD, PT, PTT, DDIMR, EDCTNI, NTPROBNP, CHEM8, LIPASE, CMETADD #### Unless otherwise noted, all testing performed by [place] [address] CLIA: [id number] Construction Plumber: Maurice Coello M.D. Ketone,Urine Negative Normal NEG;NEGATIVE [facility] Comment on above: Performed By: #### C BCWOD, PT, PTT, DDIMR, EDCTNI, NTPROBNP, CHEM8, LIPASE, CMETADD #### Unless otherwise noted, all testing performed by [place] [address] CLIA: [id number] Construction Plumber: Maurice Coello M.D. Leuk.Esterase,Urine Negative Normal Negative [facility] Comment on above: Performed By: #### C BCWOD, PT, PTT, DDIMR, EDCTNI, NTPROBNP, CHEM8, LIPASE, CMETADD #### Unless otherwise noted, all testing performed by [place] [address] CLIA: [id number] Construction Plumber: Maurice Coello M.D. Nitrite,Urine Negative Normal NEG;NEGATIVE [facility] Comment on above: Performed By: #### C BCWOD, PT, PTT, DDIMR, EDCTNI, NTPROBNP, CHEM8, LIPASE, CMETADD #### Unless otherwise noted, all testing performed by [place] [phone] CLIA: [id number] Construction Plumber: Maurice Coello M.D. pH (U) 5.0 [pH] Normal 4.5-8.0 [facility] Comment on above: Performed By: #### C BCWOD, PT, PTT, DDIMR, EDCTNI, NTPROBNP, CHEM8, LIPASE, CMETADD #### Unless otherwise noted, all testing performed by [place] [address] CLIA: [id number] Construction Plumber: Maurice Coello M.D. Protein mass conc (U) Negative Normal NEG;NEGATIVE [facility] Comment on above: Performed By: #### C BCWOD, PT, PTT, DDIMR, EDCTNI, NTPROBNP, CHEM8, LIPASE, CMETADD #### Unless otherwise noted, all testing performed by [place] [address] CLIA: [id number] Construction Plumber: Maurice Coello M.D. Specific [place],Urine 1.004 Normal 1.003-1.029 [facility] Comment on above: Performed By: #### C BCWOD, PT, PTT, DDIMR, EDCTNI, NTPROBNP, CHEM8, LIPASE, CMETADD #### Unless otherwise noted, all testing performed by [place] [address] CLIA: [id number] Construction Plumber: Maurice Coello M.D. Squamous Epithelial < 1 Normal 0-40 [facility] Comment on above: Performed By: #### C BCWOD, PT, PTT, DDIMR, EDCTNI, NTPROBNP, CHEM8, LIPASE, CMETADD #### Unless otherwise noted, all testing performed by [place] [address] CLIA: [id number] Construction Plumber: Maurice Coello M.D. Urobilinogen,Urine < 2.0 Normal <2 [facility] Comment on above: Performed By: #### C BCWOD, PT, PTT, DDIMR, EDCTNI, NTPROBNP, CHEM8, LIPASE, CMETADD #### Unless otherwise noted, all testing performed by [place] [address] CLIA: [id number] Construction Plumber: Maurice Coello M.D. WBC LM.HPF #/area (Urine sed) /[HPF] Normal 0-5 [facility] Comment on above: Performed By: #### C BCWOD, PT, PTT, DDIMR, EDCTNI, NTPROBNP, CHEM8, LIPASE, CMETADD #### Unless otherwise noted, all testing performed by [place] [address] CLIA: [id number] Construction Plumber: Maurice Coello M.D. SHOULDER 2 OR MORE VIEWSon 0 05-18-2018 SHOULDER 2 OR MORE VIEWS Final Report Accession No: [id number] Performed: May 18 2018 9:38AM Examination: LEFT SHOULDER 2 OR MORE VIEWS EXAM: Left shoulder, 3 views. INDICATION: Left shoulder pain. COMPARISON: None available. FINDINGS: 3 views of the left shoulder, including AP, lateral axillary and scapular Y views were obtained. There is no evidence for acute fracture or dislocation. No bone lesions or cortical erosions. Note is made of mild to moderate hypertrophic degenerative changes of the AC and glenohumeral joints. Focal calcification adjacent to the greater tuberosity concerning for calcific tendinitis. IMPRESSION: 1. Mild to moderate degenerative changes of the left shoulder and small focus of calcification adjacent to the greater tuberosity suggestive of mild calcific tendinitis. Further evaluation with MRI can be performed as clinically warranted. Interpreting Physician: PEARL CADENA M.D. Trans: n/a : cc: Normal [facility] BUN and Creatinineon 04-02-2 018 Creatinine 1.60 mg/dL High 0.40-1.10 [facility] Comment on above: Performed By: #### C BCWOD, PT, PTT, DDIMR, EDCTNI, NTPROBNP, CHEM8, LIPASE, CMETADD #### Unless otherwise noted, all testing performed by [place] [address] CLIA: [id number] Construction Plumber: Maurice Coello M.D. eGFR (black) 40 mL/min/{1.73_m2} Low >60 [facility] Comment on above: Result Comment: Afri can [place] GFR Calc Performed By: #### C BCWOD, PT, PTT, DDIMR, EDCTNI, NTPROBNP, CHEM8, LIPASE, CMETADD #### Unless otherwise noted, all testing performed by [place] [address] CLIA: [id number] Construction Plumber: Maurice Coello M.D. eGFR (non-black) 33 mL/min/{1.73_m2} Low >60 [facility] Comment on above: Result Comment: Non- GFR Calc eGFR is an estimated Glomerular Filtration Rate based on the value of the patient's serum creatinine. In outpatients, eGFR should be used as a helpful tool in screening for CKD. In inpatients or patients with acute renal failure, eGFR represents the GFR at the moment of the draw and should be used with caution. Performed By: #### C BCWOD, PT, PTT, DDIMR, EDCTNI, NTPROBNP, CHEM8, LIPASE, CMETADD #### Unless otherwise noted, all testing performed by [place] [address] CLIA: [id number] Construction Plumber: Maurice Coello M.D. Interpretation and review of laboratory results Abnormal Invalid Interpretation Code [facility] Urea nitrogen 14 mg/dL Normal 8-25 [facility] Comment on above: Performed By: #### C BCWOD, PT, PTT, DDIMR, EDCTNI, NTPROBNP, CHEM8, LIPASE, CMETADD #### Unless otherwise noted, all testing performed by [place] [address] CLIA: [id number] Construction Plumber: Maurice Coello M.D. Electrolyte Panelon 02-06-20 18 Chloride 104 mmol/L Normal 98-108 [facility] Comment on above: Performed By: #### C BCWOD, PT, PTT, DDIMR, EDCTNI, NTPROBNP, CHEM8, LIPASE, CMETADD #### Unless otherwise noted, all testing performed by [place] [address] CLIA: [id number] Construction Plumber: Maurice Coello M.D. CO2 27 mmol/L Normal 21-32 [facility] Comment on above: Performed By: #### C BCWOD, PT, PTT, DDIMR, EDCTNI, NTPROBNP, CHEM8, LIPASE, CMETADD #### Unless otherwise noted, all testing performed by [place] [address] CLIA: [id number] Construction Plumber: Maurice Coello M.D. Potassium 4.5 mmol/L Normal 3.5-5.1 [facility] Comment on above: Performed By: #### C BCWOD, PT, PTT, DDIMR, EDCTNI, NTPROBNP, CHEM8, LIPASE, CMETADD #### Unless otherwise noted, all testing performed by [place] [address] CLIA: [id number] Construction Plumber: Maurice Coello M.D. Sodium 139 mmol/L Normal 135-145 [facility] Comment on above: Performed By: #### C BCWOD, PT, PTT, DDIMR, EDCTNI, NTPROBNP, CHEM8, LIPASE, CMETADD #### Unless otherwise noted, all testing performed by [place] [address] CLIA: [id number] Construction Plumber: Maurice Coello M.D. Hemoglobin and Hematocriton 02-05-2018 Hematocrit (HCT) 37.8 % Invalid Interpretation Code 34.4 - 44.8 % [facility] Hemoglobin (HGB) 12.2 g/dL Normal 11.6-15.4 [facility] Comment on above: Performed By: #### C BCWOD, PT, PTT, DDIMR, EDCTNI, NTPROBNP, CHEM8, LIPASE, CMETADD #### Unless otherwise noted, all testing performed by [place] [address] CLIA: [id number] Construction Plumber: Maurice Coello M.D. Hgb and Hcton 02-05-2018 Hematocrit Volume Fraction (Bld) 37.8 % Normal 34.4-44.8 [facility] Comment on above: Performed By: #### C BCWOD, PT, PTT, DDIMR, EDCTNI, NTPROBNP, CHEM8, LIPASE, CMETADD #### Unless otherwise noted, all testing performed by [place] [address] CLIA: [id number] Construction Plumber: Maurice Coello M.D. Protein Panel, Urineon 02-05 Creatinine, Urine Random 67.60 mg/dL Normal [facility] Comment on above: Result Comment: No e stablished reference range. Performed By: #### C BCWOD, PT, PTT, DDIMR, EDCTNI, NTPROBNP, CHEM8, LIPASE, CMETADD #### Unless otherwise noted, all testing performed by [place] [address] CLIA: [id number] Construction Plumber: Maurice Coello M.D. Interpretation and review of laboratory results Abnormal Invalid Interpretation Code [facility] Protein Creatinine Ratio 0.21 High 0.0-0.2 [facility] Comment on above: Performed By: #### C BCWOD, PT, PTT, DDIMR, EDCTNI, NTPROBNP, CHEM8, LIPASE, CMETADD #### Unless otherwise noted, all testing performed by [place] [address] CLIA: [id number] Construction Plumber: Maurice Coello M.D. Protein mass conc (U) 14.3 mg/dL Normal [facility] Comment on above: Performed By: #### C BCWOD, PT, PTT, DDIMR, EDCTNI, NTPROBNP, CHEM8, LIPASE, CMETADD #### Unless otherwise noted, all testing performed by [place] [address] CLIA: [id number] Construction Plumber: Maurice Coello M.D. Protein, Urine Random 14.3 mg/dL Invalid Interpretation Code [facility] Protein/Creatinine Ratio, Urine 0.21 1 High 0.0 - 0.2 [facility] Basic Metabolic Panelon 03-2 Calcium mass conc 8.4 mg/dL Normal 8.4-10.2 [facility] Comment on above: Performed By: #### C BCWOD, PT, PTT, DDIMR, EDCTNI, NTPROBNP, CHEM8, LIPASE, CMETADD #### Unless otherwise noted, all testing performed by [place] [address] CLIA: [id number] Construction Plumber: Maurice Coello M.D. Chloride molar conc 107 mmol/L Normal 98-108 [facility] Comment on above: Performed By: #### C BCWOD, PT, PTT, DDIMR, EDCTNI, NTPROBNP, CHEM8, LIPASE, CMETADD #### Unless otherwise noted, all testing performed by [place] [address] CLIA: [id number] Construction Plumber: Maurice Coello M.D. CO2 molar conc 24 mmol/L Normal 21-32 [facility] Comment on above: Performed By: #### C BCWOD, PT, PTT, DDIMR, EDCTNI, NTPROBNP, CHEM8, LIPASE, CMETADD #### Unless otherwise noted, all testing performed by [place] [address] CLIA: [id number] Construction Plumber: Maurice Coello M.D. Creatinine mass conc 1.53 mg/dL High 0.40-1.10 [facility] Comment on above: Performed By: #### C BCWOD, PT, PTT, DDIMR, EDCTNI, NTPROBNP, CHEM8, LIPASE, CMETADD #### Unless otherwise noted, all testing performed by [place] [address] CLIA: [id number] Construction Plumber: Maurice Coello M.D. GFR/1.73 sq M predicted among blacks MDRD vol rate/area (S/P/Bld) 42 mL/min/{1.73_m2} Low >60 [facility] Comment on above: Result Comment: Afri can [place] GFR Calc Performed By: #### C BCWOD, PT, PTT, DDIMR, EDCTNI, NTPROBNP, CHEM8, LIPASE, CMETADD #### Unless otherwise noted, all testing performed by [place] [address] CLIA: [id number] Construction Plumber: Maurice Coello M.D. GFR/1.73 sq M predicted among non-blacks MDRD vol rate/area (S/P/Bld) 35 mL/min/{1.73_m2} Low >60 [facility] Comment on above: Result Comment: Non- GFR Calc eGFR is an estimated Glomerular Filtration Rate based on the value of the patient's serum creatinine. In outpatients, eGFR should be used as a helpful tool in screening for CKD. In inpatients or patients with acute renal failure, eGFR represents the GFR at the moment of the draw and should be used with caution. Performed By: #### C BCWOD, PT, PTT, DDIMR, EDCTNI, NTPROBNP, CHEM8, LIPASE, CMETADD #### Unless otherwise noted, all testing performed by [place] [address] CLIA: [id number] Construction Plumber: Maurice Coello M.D. Glucose mass conc 147 mg/dL High 70-99 [facility] Comment on above: Result Comment: This test result might be falsely depressed or falsely elevated on samples drawn from patients taking Sulfasalazine and Sulfapyridine. Venipuncture should occur prior to taking either of these drugs. Performed By: #### C BCWOD, PT, PTT, DDIMR, EDCTNI, NTPROBNP, CHEM8, LIPASE, CMETADD #### Unless otherwise noted, all testing performed by [place] [address] CLIA: [id number] Construction Plumber: Maurice Coello M.D. Potassium molar conc 5.3 mmol/L High 3.5-5.1 [facility] Comment on above: Performed By: #### C BCWOD, PT, PTT, DDIMR, EDCTNI, NTPROBNP, CHEM8, LIPASE, CMETADD #### Unless otherwise noted, all testing performed by [place] [address] CLIA: [id number] Construction Plumber: Maurice Coello M.D. Sodium molar conc 138 mmol/L Normal 135-145 [facility] Comment on above: Performed By: #### C BCWOD, PT, PTT, DDIMR, EDCTNI, NTPROBNP, CHEM8, LIPASE, CMETADD #### Unless otherwise noted, all testing performed by [place] [address] CLIA: [id number] Construction Plumber: Maurice Coello M.D. Urea nitrogen mass conc 14 mg/dL Normal 8-25 [facility] Comment on above: Performed By: #### C BCWOD, PT, PTT, DDIMR, EDCTNI, NTPROBNP, CHEM8, LIPASE, CMETADD #### Unless otherwise noted, all testing performed by [place] [address] CLIA: [id number] Construction Plumber: Maurice Coello M.D. CBC with Diffon 01-30-2018 Basophils #/vol (Bld) 0.0 K/mcL Normal 0-0.2 [facility] Comment on above: Performed By: #### C BCWOD, PT, PTT, DDIMR, EDCTNI, NTPROBNP, CHEM8, LIPASE, CMETADD #### Unless otherwise noted, all testing performed by [place] [address] CLIA: [id number] Construction Plumber: Maurice Coello M.D. Basophils/100 WBC (Bld) 0.3 % Normal [facility] Comment on above: Performed By: #### C BCWOD, PT, PTT, DDIMR, EDCTNI, NTPROBNP, CHEM8, LIPASE, CMETADD #### Unless otherwise noted, all testing performed by [place] [address] CLIA: [id number] Construction Plumber: Maurice Coello M.D. Eosinophils #/vol (Bld) 0.0 K/mcL Normal 0-0.5 [facility] Comment on above: Performed By: #### C BCWOD, PT, PTT, DDIMR, EDCTNI, NTPROBNP, CHEM8, LIPASE, CMETADD #### Unless otherwise noted, all testing performed by [place] [address] CLIA: [id number] Construction Plumber: Maurice Coello M.D. Eosinophils/100 WBC (Bld) 0.1 % Normal [facility] Comment on above: Performed By: #### C BCWOD, PT, PTT, DDIMR, EDCTNI, NTPROBNP, CHEM8, LIPASE, CMETADD #### Unless otherwise noted, all testing performed by [place] [address] CLIA: [id number] Construction Plumber: Maurice Coello M.D. Erythrocyte distribution width Ratio (RBC) 17.8 % High 10.0-14.4 [facility] Comment on above: Performed By: #### C BCWOD, PT, PTT, DDIMR, EDCTNI, NTPROBNP, CHEM8, LIPASE, CMETADD #### Unless otherwise noted, all testing performed by [place] [phone] CLIA: [id number] Construction Plumber: Maurice Coello M.D. Hematocrit Volume Fraction (Bld) 34.8 % Normal 34.4-44.8 [facility] Comment on above: Performed By: #### C BCWOD, PT, PTT, DDIMR, EDCTNI, NTPROBNP, CHEM8, LIPASE, CMETADD #### Unless otherwise noted, all testing performed by [place] [address] CLIA: [id number] Construction Plumber: Maurice Coello M.D. Hemoglobin mass conc (Bld) 11.3 g/dL Low 11.6-15.4 [facility] Comment on above: Performed By: #### C BCWOD, PT, PTT, DDIMR, EDCTNI, NTPROBNP, CHEM8, LIPASE, CMETADD #### Unless otherwise noted, all testing performed by [place] [address] CLIA: [id number] Construction Plumber: Maurice Coello M.D. Lymphocytes #/vol (Bld) 0.6 K/mcL Low 1.0-3.7 [facility] Comment on above: Performed By: #### C BCWOD, PT, PTT, DDIMR, EDCTNI, NTPROBNP, CHEM8, LIPASE, CMETADD #### Unless otherwise noted, all testing performed by [place] [address] CLIA: [id number] Construction Plumber: Maurice Coello M.D. Lymphocytes/100 WBC (Bld) 8.3 % Normal [facility] Comment on above: Performed By: #### C BCWOD, PT, PTT, DDIMR, EDCTNI, NTPROBNP, CHEM8, LIPASE, CMETADD #### Unless otherwise noted, all testing performed by [place] [address] CLIA: [id number] Construction Plumber: Maurice Coello M.D. MCH Entitic mass (RBC) 26.1 pg Low 27.9-33.9 [facility] Comment on above: Performed By: #### C BCWOD, PT, PTT, DDIMR, EDCTNI, NTPROBNP, CHEM8, LIPASE, CMETADD #### Unless otherwise noted, all testing performed by [place] [address] CLIA: [id number] Construction Plumber: Maurice Coello M.D. MCHC mass conc (RBC) 32.5 g/dL Low 33.1-35.1 [facility] Comment on above: Performed By: #### C BCWOD, PT, PTT, DDIMR, EDCTNI, NTPROBNP, CHEM8, LIPASE, CMETADD #### Unless otherwise noted, all testing performed by [place] [address] CLIA: [id number] Construction Plumber: Maurice Coello M.D. MCV Entitic volume (RBC) 80.3 fL Low 82.6-98.9 [facility] Comment on above: Performed By: #### C BCWOD, PT, PTT, DDIMR, EDCTNI, NTPROBNP, CHEM8, LIPASE, CMETADD #### Unless otherwise noted, all testing performed by [place] [address] CLIA: [id number] Construction Plumber: Maurice Coello M.D. Monocytes #/vol (Bld) 0.1 K/mcL Normal 0.1-0.6 [facility] Comment on above: Performed By: #### C BCWOD, PT, PTT, DDIMR, EDCTNI, NTPROBNP, CHEM8, LIPASE, CMETADD #### Unless otherwise noted, all testing performed by [place] [address] CLIA: [id number] Construction Plumber: Maurice Coello M.D. Monocytes/100 WBC (Bld) 0.7 % Normal [facility] Comment on above: Performed By: #### C BCWOD, PT, PTT, DDIMR, EDCTNI, NTPROBNP, CHEM8, LIPASE, CMETADD #### Unless otherwise noted, all testing performed by [place] [address] CLIA: [id number] Construction Plumber: Maurice Coello M.D. Neutrophils #/vol (Bld) 6.8 K/mcL Normal 1.2-6.9 [facility] Comment on above: Performed By: #### C BCWOD, PT, PTT, DDIMR, EDCTNI, NTPROBNP, CHEM8, LIPASE, CMETADD #### Unless otherwise noted, all testing performed by [place] [address] CLIA: [id number] Construction Plumber: Maurice Coello M.D. Platelet mean volume Entitic volume (Bld) 8.3 fL Normal 7.0-10.6 [facility] Comment on above: Performed By: #### C BCWOD, PT, PTT, DDIMR, EDCTNI, NTPROBNP, CHEM8, LIPASE, CMETADD #### Unless otherwise noted, all testing performed by [place] [address] CLIA: [id number] Construction Plumber: Maurice Coello M.D. Platelets #/vol (Bld) 281 K/mcL Normal 162-402 [facility] Comment on above: Performed By: #### C BCWOD, PT, PTT, DDIMR, EDCTNI, NTPROBNP, CHEM8, LIPASE, CMETADD #### Unless otherwise noted, all testing performed by [place] [address] CLIA: [id number] Construction Plumber: Maurice Coello M.D. RBC #/vol (Bld) 4.34 M/mcL Normal 3.7-5.0 [facility] Comment on above: Performed By: #### C BCWOD, PT, PTT, DDIMR, EDCTNI, NTPROBNP, CHEM8, LIPASE, CMETADD #### Unless otherwise noted, all testing performed by [place] [address] CLIA: [id number] Construction Plumber: Maurice Coello M.D. Segmented Neut % 90.6 % Normal [facility] [facility] Comment on above: Performed By: #### C BCWOD, PT, PTT, DDIMR, EDCTNI, NTPROBNP, CHEM8, LIPASE, CMETADD #### Unless otherwise noted, all testing performed by [place] [address] CLIA: [id number] Construction Plumber: Maurice Coello M.D. WBC #/vol (Bld) 7.5 K/mcL Normal 3.4-10.6 [facility] Comment on above: Performed By: #### C BCWOD, PT, PTT, DDIMR, EDCTNI, NTPROBNP, CHEM8, LIPASE, CMETADD #### Unless otherwise noted, all testing performed by [place] [address] CLIA: [id number] Construction Plumber: Maurice Coello M.D. Cardiac Troponin-Ion 018 Troponin I.cardiac mass conc No Biomarker evidence of myocardial injury within the past 14 hours. Normal [facility] Comment on above: Performed By: #### C BCWOD, PT, PTT, DDIMR, EDCTNI, NTPROBNP, CHEM8, LIPASE, CMETADD #### Unless otherwise noted, all testing performed by [place] [address] CLIA: [id number] Construction Plumber: Maurice Coello M.D. Troponin I.cardiac mass conc ng/mL Normal < 45.0 [facility] Comment on above: Result Comment: Elev ation of troponin indicates some degree of myocardial necrosis but unless there is a significant rise and/or fall (if elevated) identified, it unlikely that an acute event has taken place Samples from patients routinely receiving high dose biotin therapy (100-300 mg/day) may show falsely decreased results. Please correlate clinically. Performed By: #### C BCWOD, PT, PTT, DDIMR, EDCTNI, NTPROBNP, CHEM8, LIPASE, CMETADD #### Unless otherwise noted, all testing performed by [address] [place] [address] CLIA: [id number] Construction Plumber: Maurice Coello M.D. Troponin I.cardiac mass conc No Biomarker evidence of myocardial injury within the past 14 hours. Normal [facility] Comment on above: Performed By: #### C BCWOD, PT, PTT, DDIMR, EDCTNI, NTPROBNP, CHEM8, LIPASE, CMETADD #### Unless otherwise noted, all testing performed by [address] [place] [address] CLIA: [id number] Construction Plumber: Maurice Coello M.D. LUNG VENTILATION AND PERFUSI ONon 01-30-2018 LUNG VENTILATION AND PERFUSION Final Report Accession No: [id number] Performed: Jan 30 2018 2:17PM Examination: LUNG VENTILATION AND PERFUSION VENTILATION/PERFUSION SCAN HISTORY: Chest pain and shortness of breath. COMPARISON: Chest radiograph 01/29/2018. TECHNIQUE: The patient inhaled 32.6 mCi of technetium-99m DTPA aerosol and images were performed in multiple projections. The patient then was injected with 6.31 mCi technetium-99m MAA, and images were performed in multiple projections. FINDINGS: Ventilation images show mildly heterogeneous uptake with clumping of radiotracer in the central airways compatible with COPD. Perfusion images show bilateral matched defects. No moderate or large mismatched defects are identified. IMPRESSION: Low probability of pulmonary embolism. Interpreting Physician: ARNOL PEREZ M.D. Trans: [email or web address] : cc: Normal [facility] Basic Metabolic Panelon 01-05 Calcium mass conc 8.9 mg/dL Normal 8.4-10.2 [facility] Comment on above: Performed By: #### C BCWOD, PT, PTT, DDIMR, EDCTNI, NTPROBNP, CHEM8, LIPASE, CMETADD #### Unless otherwise noted, all testing performed by [address] [place], [place] [address] CLIA: [id number] Construction Plumber: Maurice Coello M.D. Chloride molar conc 104 mmol/L Normal 98-108 [facility] Comment on above: Performed By: #### C BCWOD, PT, PTT, DDIMR, EDCTNI, NTPROBNP, CHEM8, LIPASE, CMETADD #### Unless otherwise noted, all testing performed by [place] [address] CLIA: [id number] Construction Plumber: Maurice Coello M.D. CO2 molar conc 27 mmol/L Normal 21-32 [facility] Comment on above: Performed By: #### C BCWOD, PT, PTT, DDIMR, EDCTNI, NTPROBNP, CHEM8, LIPASE, CMETADD #### Unless otherwise noted, all testing performed by [place] [address] CLIA: [id number] Construction Plumber: Maurice Coello M.D. Creatinine mass conc 1.66 mg/dL High 0.40-1.10 [facility] Comment on above: Performed By: #### C BCWOD, PT, PTT, DDIMR, EDCTNI, NTPROBNP, CHEM8, LIPASE, CMETADD #### Unless otherwise noted, all testing performed by [place] [address] CLIA: [id number] Construction Plumber: Maurice Coello M.D. GFR/1.73 sq M predicted among blacks MDRD vol rate/area (S/P/Bld) 38 mL/min/{1.73_m2} Low >60 [facility] Comment on above: Result Comment: Afri can [place] GFR Calc Performed By: #### C BCWOD, PT, PTT, DDIMR, EDCTNI, NTPROBNP, CHEM8, LIPASE, CMETADD #### Unless otherwise noted, all testing performed by [place] [address] CLIA: [id number] Construction Plumber: Maurice Coello M.D. GFR/1.73 sq M predicted among non-blacks MDRD vol rate/area (S/P/Bld) 32 mL/min/{1.73_m2} Low >60 [facility] Comment on above: Result Comment: Non- GFR Calc eGFR is an estimated Glomerular Filtration Rate based on the value of the patient's serum creatinine. In outpatients, eGFR should be used as a helpful tool in screening for CKD. In inpatients or patients with acute renal failure, eGFR represents the GFR at the moment of the draw and should be used with caution. Performed By: #### C BCWOD, PT, PTT, DDIMR, EDCTNI, NTPROBNP, CHEM8, LIPASE, CMETADD #### Unless otherwise noted, all testing performed by [place] [address] CLIA: [id number] Construction Plumber: Maurice Coello M.D. Glucose mass conc 124 mg/dL High 70-99 [facility] Comment on above: Result Comment: This test result might be falsely depressed or falsely elevated on samples drawn from patients taking Sulfasalazine and Sulfapyridine. Venipuncture should occur prior to taking either of these drugs. Performed By: #### C BCWOD, PT, PTT, DDIMR, EDCTNI, NTPROBNP, CHEM8, LIPASE, CMETADD #### Unless otherwise noted, all testing performed by [place] [address] CLIA: [id number] Construction Plumber: Maurice Coello M.D. Potassium molar conc 4.5 mmol/L Normal 3.5-5.1 [facility] Comment on above: Performed By: #### C BCWOD, PT, PTT, DDIMR, EDCTNI, NTPROBNP, CHEM8, LIPASE, CMETADD #### Unless otherwise noted, all testing performed by [place] [address] CLIA: [id number] Construction Plumber: Maurice Coello M.D. Sodium molar conc 137 mmol/L Normal 135-145 [facility] Comment on above: Performed By: #### C BCWOD, PT, PTT, DDIMR, EDCTNI, NTPROBNP, CHEM8, LIPASE, CMETADD #### Unless otherwise noted, all testing performed by [place] [address] CLIA: [id number] Construction Plumber: Maurice Coello M.D. Urea nitrogen mass conc 15 mg/dL Normal 8-25 [facility] Comment on above: Performed By: #### C BCWOD, PT, PTT, DDIMR, EDCTNI, NTPROBNP, CHEM8, LIPASE, CMETADD #### Unless otherwise noted, all testing performed by [place] [address] CLIA: [id number] Construction Plumber: Maurice Coello M.D. CBC w/o Diffon 01-29-2018 Erythrocyte distribution width Ratio (RBC) 17.5 % High 10.0-14.4 [facility] Comment on above: Performed By: #### C BCWOD, PT, PTT, DDIMR, EDCTNI, NTPROBNP, CHEM8, LIPASE, CMETADD #### Unless otherwise noted, all testing performed by [place] [address] CLIA: [id number] Construction Plumber: Maurice Coello M.D. Hematocrit Volume Fraction (Bld) 38.5 % Normal 34.4-44.8 [facility] Comment on above: Performed By: #### C BCWOD, PT, PTT, DDIMR, EDCTNI, NTPROBNP, CHEM8, LIPASE, CMETADD #### Unless otherwise noted, all testing performed by [place] [address] CLIA: [id number] Construction Plumber: Maurice Coello M.D. Hemoglobin mass conc (Bld) 12.7 g/dL Normal 11.6-15.4 [facility] Comment on above: Performed By: #### C BCWOD, PT, PTT, DDIMR, EDCTNI, NTPROBNP, CHEM8, LIPASE, CMETADD #### Unless otherwise noted, all testing performed by [place] [address] CLIA: [id number] Construction Plumber: Maurice Coello M.D. MCH Entitic mass (RBC) 26.1 pg Low 27.9-33.9 [facility] Comment on above: Performed By: #### C BCWOD, PT, PTT, DDIMR, EDCTNI, NTPROBNP, CHEM8, LIPASE, CMETADD #### Unless otherwise noted, all testing performed by [place] [address] CLIA: [id number] Construction Plumber: Maurice Coello M.D. MCHC mass conc (RBC) 32.9 g/dL Low 33.1-35.1 [facility] Comment on above: Performed By: #### C BCWOD, PT, PTT, DDIMR, EDCTNI, NTPROBNP, CHEM8, LIPASE, CMETADD #### Unless otherwise noted, all testing performed by [place] [address] CLIA: [id number] Construction Plumber: Maurice Coello M.D. MCV Entitic volume (RBC) 79.4 fL Low 82.6-98.9 [facility] Comment on above: Performed By: #### C BCWOD, PT, PTT, DDIMR, EDCTNI, NTPROBNP, CHEM8, LIPASE, CMETADD #### Unless otherwise noted, all testing performed by [place] [address] CLIA: [id number] Construction Plumber: Maurice Coello M.D. Platelet mean volume Entitic volume (Bld) 7.8 fL Normal 7.0-10.6 [facility] Comment on above: Performed By: #### C BCWOD, PT, PTT, DDIMR, EDCTNI, NTPROBNP, CHEM8, LIPASE, CMETADD #### Unless otherwise noted, all testing performed by [place] [address] CLIA: [id number] Construction Plumber: Maurice Coello M.D. Platelets #/vol (Bld) 351 K/mcL Normal 162-402 [facility] Comment on above: Performed By: #### C BCWOD, PT, PTT, DDIMR, EDCTNI, NTPROBNP, CHEM8, LIPASE, CMETADD #### Unless otherwise noted, all testing performed by [place] [address] CLIA: [id number] Construction Plumber: Maurice Coello M.D. RBC #/vol (Bld) 4.84 M/mcL Normal 3.7-5.0 [facility] Comment on above: Performed By: #### C BCWOD, PT, PTT, DDIMR, EDCTNI, NTPROBNP, CHEM8, LIPASE, CMETADD #### Unless otherwise noted, all testing performed by [place] [address] CLIA: [id number] Construction Plumber: Maurice Coello M.D. WBC #/vol (Bld) 7.6 K/mcL Normal 3.4-10.6 [facility] Comment on above: Performed By: #### C BCWOD, PT, PTT, DDIMR, EDCTNI, NTPROBNP, CHEM8, LIPASE, CMETADD #### Unless otherwise noted, all testing performed by [place] [address] CLIA: [id number] Construction Plumber: Maurice Coello M.D. CHEST (ONE VIEW ONLY)on 01-05 CHEST (ONE VIEW ONLY) Final Report Accession No: [id number] Performed: Jan 29 2018 6:55PM Examination: CHEST (ONE VIEW ONLY) CHEST RADIOGRAPH CLINICAL HISTORY: Chest Pain. COMPARISON: 06/10/2016. TECHNIQUE: CHEST (ONE VIEW ONLY) FINDINGS: Calcified granuloma is again noted in the right upper lung. No pneumothorax or large pleural effusion. No focal airspace consolidation. Unchanged cardiomediastinal silhouette. Unchanged osseous structures. Postsurgical changes again noted at the right humeral head. IMPRESSION: No acute pulmonary abnormality. Interpreting Physician: KELSEY SCHMITZ M.D. Trans: [email or web address] : cc: Normal [facility] CMET Add-On Testson 01-30-20 18 Albumin mass conc 3.7 g/dL Normal 3.2-5.2 [facility] Comment on above: Performed By: #### C BCWOD, PT, PTT, DDIMR, EDCTNI, NTPROBNP, CHEM8, LIPASE, CMETADD #### Unless otherwise noted, all testing performed by [place] [address] CLIA: [id number] Construction Plumber: Maurice Coello M.D. ALP enzyme act/vol 107 U/L Normal 40-150 [facility] Comment on above: Performed By: #### C BCWOD, PT, PTT, DDIMR, EDCTNI, NTPROBNP, CHEM8, LIPASE, CMETADD #### Unless otherwise noted, all testing performed by [place] [address] CLIA: [id number] Construction Plumber: Maurice Coello M.D. ALT enzyme act/vol 29 U/L Normal 14-65 [facility] Comment on above: Result Comment: This test result might be falsely depressed or falsely elevated on samples drawn from patients taking Sulfasalazine and Sulfapyridine. Venipuncture should occur prior to taking either of these drugs. Performed By: #### C BCWOD, PT, PTT, DDIMR, EDCTNI, NTPROBNP, CHEM8, LIPASE, CMETADD #### Unless otherwise noted, all testing performed by [place] [phone] CLIA: [id number] Construction Plumber: Maurice Coello M.D. AST enzyme act/vol 21 U/L Normal 0-45 [facility] Comment on above: Result Comment: This test result might be falsely depressed or falsely elevated on samples drawn from patients taking Sulfasalazine and Sulfapyridine. Venipuncture should occur prior to taking either of these drugs. Performed By: #### C BCWOD, PT, PTT, DDIMR, EDCTNI, NTPROBNP, CHEM8, LIPASE, CMETADD #### Unless otherwise noted, all testing performed by [place] [address] CLIA: [id number] Construction Plumber: Maurice Coello M.D. Bilirubin mass conc 0.2 mg/dL Low 0.3-1.2 [facility] Comment on above: Performed By: #### C BCWOD, PT, PTT, DDIMR, EDCTNI, NTPROBNP, CHEM8, LIPASE, CMETADD #### Unless otherwise noted, all testing performed by [place] [address] CLIA: [id number] Construction Plumber: Maurice Coello M.D. Protein mass conc 8.2 g/dL High 6.0-8.0 [facility] Comment on above: Performed By: #### C BCWOD, PT, PTT, DDIMR, EDCTNI, NTPROBNP, CHEM8, LIPASE, CMETADD #### Unless otherwise noted, all testing performed by [place] [address] CLIA: [id number] Construction Plumber: Maurice Coello M.D. Cardiac Troponin-Ion 018 Troponin I.cardiac mass conc ng/mL Normal < 45 [facility] Comment on above: Result Comment: Elev ation of troponin indicates some degree of myocardial necrosis but unless there is a significant rise and/or fall (if elevated) identified, it unlikely that an acute event has taken place Samples from patients routinely receiving high dose biotin therapy (100-300 mg/day) may show falsely decreased results. Please correlate clinically. Performed By: #### C BCWOD, PT, PTT, DDIMR, EDCTNI, NTPROBNP, CHEM8, LIPASE, CMETADD #### Unless otherwise noted, all testing performed by [place] [address] CLIA: [id number] Construction Plumber: Maurice Coello M.D. D-Dimeron 01-29-2018 D-Dimer 1.88 mcg/ml (FEU) High < .5 [facility] Comment on above: Result Comment: This test is intended for use in conjunction with a clinical pretest probability (PTP) assessment model to exclude pulmonary embolism (PE) and deep vein thrombosis (DVT) in outpatients suspected of PE or DVT. Performed By: #### C BCWOD, PT, PTT, DDIMR, EDCTNI, NTPROBNP, CHEM8, LIPASE, CMETADD #### Unless otherwise noted, all testing performed by [place] [address] CLIA: [id number] Construction Plumber: Maurice Coello M.D. Lactic Acidon 01-29-2018 Lactate molar conc 1.3 mmol/L Normal 0.6-2.0 [facility] Comment on above: Performed By: #### C BCWOD, PT, PTT, DDIMR, EDCTNI, NTPROBNP, CHEM8, LIPASE, CMETADD #### Unless otherwise noted, all testing performed by [place] [address] CLIA: [id number] Construction Plumber: Maurice Colelo M.D. Lipaseon 01-29-2018 Lipase enzyme act/vol 250 U/L Normal 73-393 [facility] Comment on above: Performed By: #### C BCWOD, PT, PTT, DDIMR, EDCTNI, NTPROBNP, CHEM8, LIPASE, CMETADD #### Unless otherwise noted, all testing performed by [place] [address] CLIA: [id number] Construction Plumber: Maurice Coello M.D. NT-Pro BNP, Serumon 01-30-20 18 Natriuretic peptide B mass conc (Bld) 97 pg/mL Normal 0-125 [facility] Comment on above: Performed By: #### C BCWOD, PT, PTT, DDIMR, EDCTNI, NTPROBNP, CHEM8, LIPASE, CMETADD #### Unless otherwise noted, all testing performed by [place] [address] CLIA: [id number] Construction Plumber: Maurice Coello M.D. Partial Thromboplastin Timeo n 01-29-2018 aPTT Coag time (Bld) 31 s Normal 23.0-34.0 [facility] Comment on above: Result Comment: Uday silva therapeutic range for PTT is 68-104 sec. Performed By: #### C BCWOD, PT, PTT, DDIMR, EDCTNI, NTPROBNP, CHEM8, LIPASE, CMETADD #### Unless otherwise noted, all testing performed by [place] [address] CLIA: [id number] Construction Plumber: Maurice Coello M.D. Protimeon 01-29-2018 INR Coag RelTime (PPP) 0.93 {INR} Normal [facility] Comment on above: Result Comment: The [place] [employer] recommended therapeutic range for Warfarin (Coumadin) therapy goals: PROPHYLAXIS/TREATMENT of: INR Venous Thrombosis, Pulmonary Embolism 2.0-3.0 Prevention of VTE (Orthopedic Surgery) 2.0-3.0 Atrial Fibrillation 2.0-3.0 Myocardial Infarction 2.0-3.0 Mechanical Prosthetic Heart Valves (Aortic position) 2.0-3.0 Mechanical Prosthetic Heart Valves (Mitral Position) 2.5-3.5 [place] [employer] evidence-based clinical practice guidelines. CHEST. 2012 (9th ed) Performed By: #### C BCWOD, PT, PTT, DDIMR, EDCTNI, NTPROBNP, CHEM8, LIPASE, CMETADD #### Unless otherwise noted, all testing performed by [place] [address] CLIA: [id number] Construction Plumber: Maurice Coello M.D. Prothrombin time (PT) Coag time (PPP) 12.1 s Normal 11.8-14.3 [facility] Comment on above: Performed By: #### C BCWOD, PT, PTT, DDIMR, EDCTNI, NTPROBNP, CHEM8, LIPASE, CMETADD #### Unless otherwise noted, all testing performed by [facility] [address] [place], [place] [address] CLIA: [id number] Construction Plumber: Maurice Coello M.D. TSHon 01-12-2018 Interpretation and review of laboratory results Abnormal Invalid Interpretation Code [facility] Thyroid stimulating hormone (TSH) 24.40 uIU/mL High 0.320 - 5.000 [facility] Thyroxine (T4) free 1.0 ng/dL Invalid Interpretation Code 0.76 - 1.79 ng/dL [facility] CBC with DIFFERENTIALon 10-07 Basophils Auto #/vol (Bld) 0.04 10*3/uL Normal <=0.70 [facility] Comment on above: Performed By: #### 5 7021-8 ####[facility] Director - Gail Allison [id number] Basophils/100 WBC Auto (Bld) 0.3 % Normal <=2.0 [facility] Comment on above: Performed By: #### 5 7021-8 ####[facility] Director - Gail Allison [id number] Eosinophils 0.04 10*3/uL Normal <=0.70 [facility] Comment on above: Performed By: #### 5 7021-8 ####[facility] Director - Gail Allison [id number] Eosinophils/100 leukocytes 0.3 % Normal <=10.0 [facility] Comment on above: Performed By: #### 5 7021-8 ####[place] [address] Director - Gail Allison [id number] Erythrocyte distribution width Auto Entitic volume (RBC) 46.7 fL High 36.4-46.3 [facility] Comment on above: Performed By: #### 5 7021-8 ####[facility] Director - Gailpaulo Allison [id number] Erythrocytes (RBC) 4.90 10*6/uL Normal 4.00-6.30 [facility] Comment on above: Performed By: #### 5 7021-8 ####[facility] Director - Gail Allison [id number] Hematocrit (HCT) 38.1 % Normal 37.0-47.0 [facility] Comment on above: Performed By: #### 5 7021-8 ####[place] [address] Director - Gailpaulo ThompsonCLIA [id number] Hemoglobin mass conc (Bld) 12.2 g/dL Normal 12.0-16.0 [facility] Comment on above: Performed By: #### 5 7021-8 ####[facility] Director - Gail JayCLIA [id number] Immature granulocytes #/vol (Bld) 0.03 10*3/uL Normal <=0.10 [facility] Comment on above: Performed By: #### 5 7021-8 ####[facility] Director - Gail RohanrellCLIA [id number] Immature granulocytes/100 WBC (Bld) 0.30 % Normal <=1.50 [facility] Comment on above: Performed By: #### 5 7021-8 ####[facility] Director - Gailpaulo Allison [id number] Lymphocytes 1.42 10*3/uL Normal 1.20-3.40 [facility] Comment on above: Performed By: #### 5 7021-8 ####[facility], [place] [address]Pbtamow Director - Gailpaulo ThompsonCLIA [id number] Lymphocytes/100 leukocytes 11.9 % Low 20.0-40.0 [facility] Comment on above: Performed By: #### 5 7021-8 ####[facility] Director - Gailpaulo ThompsonCLIA [id number] MCH 24.9 pg Low 27.0-31.0 [facility] Comment on above: Performed By: #### 5 7021-8 ####[facility] Director - Gail Allison [id number] MCHC mass conc (RBC) 32.0 g/dL Normal 32.0-36.0 [facility] Comment on above: Performed By: #### 5 7021-8 ####[facility] Director - Gail ThompsonCLIA [id number] MCV 77.8 fL Low 80.0-100.0 [facility] Comment on above: Performed By: #### 5 7021-8 ####[facility], [place] [address]Xdnkboi Director - Gailpaulo MadrigalrellCLIA [id number] Monocytes 0.53 10*3/uL Normal 0.10-0.60 [facility] Comment on above: Performed By: #### 5 7021-8 ####[facility], [place] [address]Kzkdxqv Director - Gail RohanrellCLIA [id number] Monocytes/100 leukocytes 4.5 % Normal <=8.0 [facility] Comment on above: Performed By: #### 5 7021-8 ####[facility] Director - Gailpaulo MadrigalrellCLIA [id number] Neutrophils 9.84 10*3/uL High 1.40-6.50 [facility] Comment on above: Performed By: #### 5 7021-8 ####[facility] Director - Gail Allison [id number] Neutrophils/100 WBC Auto (Bld) 82.7 % High 50.0-70.0 [facility] Comment on above: Performed By: #### 5 7021-8 ####[place] [address] Director - Gail Allison [id number] Nucleated erythrocytes 0.00 10*3/uL Normal <=0.10 [facility] Comment on above: Performed By: #### 5 7021-8 ####[place] [address] Director - Gail Allison [id number] Platelet mean volume (PMV) 10.2 fL Normal 9.0-13.0 [facility] Comment on above: Performed By: #### 5 7021-8 ####[facility] Director - Gail Allison [id number] Platelets 269 10*3/uL Normal 130-400 [facility] Comment on above: Performed By: #### 5 7021-8 ####[facility] Director - Gail Allison [id number] WBC (Leukocytes) 11.90 10*3/uL High 4.80-10.80 [facility] Comment on above: Performed By: #### 5 7021-8 ####[facility] Director - Gail Allison [id number] [facility] Creatine kinase (CK) 617 U/L High 21-215 [facility] Comment on above: Performed By: #### 2 157-6, 14983-8, 3040-3 ####[place] [address], [place] [address]Bgtlkch Director - Gail Allison [id number] COMPREHENSIVE METABOLIC PANE Jett 11-02-2017 Alanine aminotransferase (ALT) 31 U/L Normal 14-59 [facility] Comment on above: Performed By: #### 2 157-6, 12309-5, 3040-3 ####[facility] Director - Gail Allison [id number] Albumin 3.7 g/dL Normal 3.4-5.0 [facility] Comment on above: Performed By: #### 2 157-6, 48680-2, 3040-3 ####[facility] Director - Gail Allison [id number] Alkaline phosphatase (ALP) 109 U/L Normal 50-136 [facility] Comment on above: Performed By: #### 2 157-6, 25779-6, 0-3 ####[facility] Director - Gail Allison [id number] Anion gap 7.0 mmol/L Normal <=15.0 [facility] Comment on above: Performed By: #### 2 157-6, 69059-2, 0-3 ####[facility] Director - Gail Allison [id number] Aspartate aminotransferase (AST) 34 U/L Normal 15-37 [facility] Comment on above: Performed By: #### 2 157-6, 47079-1, 3040-3 ####[facility] Director - Gail Allison [id number] Bilirubin (total) 0.3 mg/dL Normal 0.2-1.0 [facility] Comment on above: Performed By: #### 2 157-6, 66045-9, 3040-3 ####[facility], [place] [address]Noywmnc Director - Gail Allison [id number] Calcium 9.1 mg/dL Normal 8.5-10.1 [facility] Comment on above: Performed By: #### 2 157-6, 81345-7, 0-3 ####[facility], [place] [address]Tyapsht Director - Gail Allison [id number] Chloride 102 mmol/L Normal 98-107 [facility] Comment on above: Performed By: #### 2 157-6, 21754-4, 0-3 ####[facility], [place] [address]Hgxhvtf Director - Gail Allison [id number] CO2 27 mmol/L Normal 21-32 [facility] Comment on above: Performed By: #### 2 157-6, 41998-3, 0-3 ####[facility] - Gail Allison [id number] Creatinine 1.34 mg/dL High 0.51-0.95 [facility] Comment on above: Performed By: #### 2 157-6, 17095-8, 0-3 ####[facility], [place] [address] [place] [address] Gail Allison [id number] eGFR (MDRD) 40 mL/min/{1.73_m2} Low >=59 [facility] Comment on above: Performed By: #### 2 157-6, 70806-2, 0-3 ####[facility], [place] [address] [place] [address] Gail YandyVT [id number] eGFR (non-black) GLOMERULAR FILTRATIO N RATE INTERPRETATION~The eGFR is calculated using the MDRD equation.~This equation has been validated in patients with chronic kidney disease;~however, it underestimates the GFR in healthy patients with GFR's over 60 mL/min.~The equation is not valid in children under the age of 18.~NOTE: Criteria for Chronic Kidney Disease:~ ~1. Kidney damage for at least three months, as defined~by structural or functional abnormalities of the kidney,~with or without decreased glomerular filtration rate, manifested by either:~* Pathological abnormalities or~* Markers of Kidney damage, including abnormalities in~the composition of the blood or urine or abnormalities in imaging tests.~ ~2. GFR <60 mL/min/1.73 m squared for at least three months, with or without kidney damage.~ Normal [facility] Comment on above: Performed By: #### 2 157-6, 36669-1, 0-3 ####[facility], [place] [address]Jjhwdoj Director - Gail Allison [id number] Glucose mass conc 115 mg/dL High 74-106 [facility] Comment on above: Performed By: #### 2 157-6, 70005-5, 0-3 ####[facility] Director - Gail Allison [id number] Potassium molar conc 4.3 mmol/L Normal 3.5-5.1 [facility] Comment on above: Performed By: #### 2 157-6, 61037-0, 0-3 ####[facility], [place] [address]Cqtyijk Director - Gail Allison [id number] Protein 7.7 g/dL Normal 6.4-8.2 [facility] Comment on above: Performed By: #### 2 157-6, 80945-9, 0-3 ####[facility], [place] [address]Nyjdmxi Director - Gail Allison [id number] Sodium 136 mmol/L Normal 136-145 [facility] Comment on above: Performed By: #### 2 157-6, 58163-4, 0-3 ####[facility], [place] [address]Qlaaiog Director - Gail Allison [id number] Urea nitrogen 17 mg/dL Normal 7-17 [facility] Comment on above: Performed By: #### 2 157-6, 99453-4, 3040-3 ####[facility], [place] [address]Tyuifre Director - Gail Allison [id number] LACTATEon 11-02-2017 Lactate 0.6 mmol/L Normal 0.4-2.0 [facility] Comment on above: Performed By: #### 2 524-7 ####[facility], [place] [address]Woxtrdv Director - Gail Allison [id number] LIPASEon 11-02-2017 Lipase 183 U/L Normal 73-393 [facility] Comment on above: Performed By: #### 2 157-6, 79367-5, 3040-3 ####[facility], [place] [address]Cmjnevr Director - Gail Allison [id number] PT with INRon 11-02-2017 INR Coag RelTime (Bld) INR REFERENCE RAN GE INTERPRETATION Patients on Coumadin 2.0 - 3.0 Patients with mechanical heart valves 2.5 - 3.5 Normal [facility] Comment on above: Performed By: #### 5 902-2, 96842-7 ####[facility], [place] [address]Xfpeitv Director - Gail Allison [id number] INR Coag RelTime (PPP) 1.0 {INR} Normal 0.8-1.1 [facility] Comment on above: Performed By: #### 5 902-2, 80665-9 ####[facility], [place] [address]Vjouwtk Director - aGil Allison [id number] Prothrombin time (PT) Coag time (PPP) 10.6 Secs Normal 9.3-11.5 [facility] Comment on above: Performed By: #### 5 902-2, 46311-0 ####[facility], [place] [address]Iomdxse Director - Gail Allison [id number] PTTon 11-02-2017 aPTT 27.6 Sec Normal 23.5-31.3 [facility] Comment on above: Performed By: #### 5 902-2, 01905-3 ####[facility] [place] [address]Medical Director - Gail Allison [id number] BUN and Creatinineon 017 Creatinine 1.53 mg/dL High 0.4 - 1.1 mg/dL [facility] eGFR (black) 42 mL/min/{1.73_m2} Low >60 [facility] eGFR (non-black) 35 mL/min/{1.73_m2} Low >60 [facility] Interpretation and review of laboratory results Abnormal Invalid Interpretation Code [facility] Urea nitrogen 15 mg/dL Invalid Interpretation Code 8 - 25 mg/dL [facility] Calcium Levelon 07-05-2017 Calcium 9.0 mg/dL Invalid Interpretation Code 8.4 - 10.2 mg/dL [facility] Electrolyte Panelon 07-05-20 17 Chloride 104 mmol/L Invalid Interpretation Code 98 - 108 mmol/L [facility] CO2 23 mmol/L Invalid Interpretation Code 21 - 32 mmol/L [facility] Potassium 4.7 mmol/L Invalid Interpretation Code 3.5 - 5.1 mmol/L [facility] Sodium 136 mmol/L Invalid Interpretation Code 135 - 145 mmol/L [facility] Hemoglobin and Hematocriton 07-05-2017 Hematocrit (HCT) 37.0 % Invalid Interpretation Code 34.4 - 44.8 % [facility] Hemoglobin (HGB) 12.1 g/dL Invalid Interpretation Code 11.6 - 15.4 g/dL [facility] Parathyroid Hormoneon 2016 Parathyroid Hormone 90.3 pg/mL High 14.1 - 7 2 pg/mL [facility] Protein Panel, Urineon 07-05 Creatinine, Urine Random 64.80 mg/dL Invalid Interpretation Code [facility] Interpretation and review of laboratory results Abnormal Invalid Interpretation Code [facility] Protein, Urine Random 15.5 mg/dL Invalid Interpretation Code [facility] Protein/Creatinine Ratio, Urine 0.24 1 High 0.0 - 0.2 [facility] TSHon 07-05-2017 Thyroid stimulating hormone (TSH) 0.90 uIU/mL Invalid Interpretation Code 0.320 - 5.000 [facility] Vitamin D, Total, 25-OHon Vitamin D, 25-Hydroxy, Total 26.6 ng/mL Invalid Interpretation Code [facility] Vital Signs Date Time Vital Sign Value Performing Clinician Facility 06-26-2025 14:03-0400 Body height 165.[address] Jennifer Gordon MD Work Phone: [facility] 06-26-2025 14:03-0400 Body mass index (BMI) [Ratio] 35.9 kg/m2 Dr. Jennifer Gordon MD Work Phone: [facility] 06-26-2025 14:03-0400 Body temperature 98 [degF] Dr. Jennifer Gordon MD Work Phone: [facility] 06-26-2025 14:03-0400 Body weight 97.[address] Jennifer Gordon MD Work Phone: [facility] 06-26-2025 14:03-0400 Diastolic blood pressure 68 mm[Hg] Dr. Jennifer Gordon MD Work Phone: [facility] 06-26-2025 14:03-0400 Heart rate 103 /min Dr. Jennifer Gordon MD Work Phone: [facility] 06-26-2025 14:03-0400 Respiratory rate 18 /min Dr. Jennifer Gordon MD Work Phone: [facility] 06-26-2025 14:03-0400 SaO2% (BldA) [Mass fraction] 97 % Dr. Jennifer Gordon MD Work Phone: [facility] 06-26-2025 14:03-0400 Systolic blood pressure 142 mm[Hg] Dr. Jennifer Gordon MD Work Phone: [facility] 06-17-2025 08:29-0400 Body height 165.[address] Jennifer Gordon MD Work Phone: [facility] 06-17-2025 08:29-0400 Body mass index (BMI) [Ratio] 36.6 kg/m2 Dr. Jennifer Gordon MD Work Phone: [facility] 06-17-2025 08:29-0400 Body temperature 97.1 [degF] Dr. Jennifer Gordon MD Work Phone: [facility] 06-17-2025 08:29-0400 Body weight 99.[address] Jennifer Gordon MD Work Phone: [facility] 06-17-2025 08:29-0400 Diastolic blood pressure 65 mm[Hg] Dr. Jennifer Gordon MD Work Phone: [facility] 06-17-2025 08:29-0400 Heart rate 75 /min Dr. Jennifer Gordon MD Work Phone: [facility] 06-17-2025 08:29-0400 Inhaled oxygen flow rate 4 L/min Dr. Jennifer Gordon MD Work Phone: [facility] 06-17-2025 08:29-0400 Respiratory rate 18 /min Dr. Jennifer Gordon MD Work Phone: [facility] 06-17-2025 08:29-0400 SaO2% (BldA) [Mass fraction] 97 % Dr. Jennifer Gordon MD Work Phone: [facility] 06-17-2025 08:29-0400 Systolic blood pressure 136 mm[Hg] Dr. Jennifer Gordon MD Work Phone: [facility] 04-30-2025 10:06-0400 Body height 165.1 cm Cb Boudreaux MD Work Phone: [facility] 04-30-2025 10:06-0400 Body mass index (BMI) [Ratio] 36.11 kg/m2 Cb Boudreaux MD Work Phone: [facility] 04-30-2025 10:06-0400 Body weight 98.43 kg Cb Boudreaux MD Work Phone: [facility] 04-30-2025 10:06-0400 Diastolic blood pressure 93 mm[Hg] Cb Boudreaux MD Work Phone: [facility] 04-30-2025 10:06-0400 Heart rate 64 /min Cb Boudreaux MD Work Phone: [facility] 04-30-2025 10:06-0400 SaO2% (BldA) [Mass fraction] 94 % Cb Boudreaux MD Work Phone: [facility] Comment on above: 2 LPM 04-30-2025 10:06-0400 Systolic blood pressure 145 mm[Hg] Cb Boudreaux MD Work Phone: [facility] 2025 13:25-0400 Body height 165.[address] Jennifer Gordon MD Work Phone: [facility] 2025 13:25-0400 Body mass index (BMI) [Ratio] 35.6 kg/m2 Dr. Jennifer Gordon MD Work Phone: [facility] 2025 13:25-0400 Body temperature 98.6 [degF] Dr. Jennifer Gordon MD Work Phone: [facility] 2025 13:25-0400 Body weight 97.[address] Jennifer Gordon MD Work Phone: [facility] 2025 13:25-0400 Diastolic blood pressure 84 mm[Hg] Dr. Jennifer Gordon MD Work Phone: [facility] 2025 13:25-0400 Heart rate 71 /min Dr. Jennifer Gordon MD Work Phone: [facility] 2025 13:25-0400 Inhaled oxygen flow rate 4 L/min Dr. Jennifer Gordon MD Work Phone: [facility] 2025 13:25-0400 Respiratory rate 20 /min Dr. Jennifer Gordon MD Work Phone: [facility] 2025 13:25-0400 SaO2% (BldA) [Mass fraction] 99 % Dr. Jennifer Gordon MD Work Phone: [facility] 2025 13:25-0400 Systolic blood pressure 160 mm[Hg] Dr. Jennifer Gordon MD Work Phone: [facility] 04-04-2025 14:41-0400 Heart rate 97 /min Dr. Jennifer Gordon MD Work Phone: [facility] 04-04-2025 14:41-0400 Inhaled oxygen flow rate 4 L/min Dr. eJnnifer Gordon MD Work Phone: [facility] 04-04-2025 14:41-0400 SaO2% (BldA) [Mass fraction] 96 % Dr. Jennifer Gordon MD Work Phone: [facility] 04-04-2025 08:16-0400 Body mass index (BMI) [Ratio] 34.9 kg/m2 Dr. Jennifer Gordon MD Work Phone: [facility] 04-04-2025 08:16-0400 Body temperature 97.4 [degF] Dr. Jennifer Gordon MD Work Phone: [facility] 04-04-2025 08:16-0400 Body weight 95.[address] Jennifer Gordon MD Work Phone: [facility] 04-04-2025 08:16-0400 Diastolic blood pressure 82 mm[Hg] Dr. Jennifer Gordon MD Work Phone: [facility] 04-04-2025 08:16-0400 Heart rate 68 /min Dr. Jennifer Gordon MD Work Phone: [facility] 04-04-2025 08:16-0400 Inhaled oxygen flow rate 4 L/min Dr. Jennifer Gordon MD Work Phone: [facility] 04-04-2025 08:16-0400 Respiratory rate 20 /min Dr. Jennifer Gordon MD Work Phone: [facility] 04-04-2025 08:16-0400 SaO2% (BldA) [Mass fraction] 99 % Dr. Jennifer Gordon MD Work Phone: [facility] 04-04-2025 08:16-0400 Systolic blood pressure 165 mm[Hg] Dr. Jennifer Gordon MD Work Phone: [facility] 03-27-2025 11:34-0400 Body height 165.[address] Jennifer Gordon MD Work Phone: [facility] 03-27-2025 11:34-0400 Body mass index (BMI) [Ratio] 36.1 kg/m2 Dr. Jennifer Gordon MD Work Phone: [facility] 03-27-2025 11:34-0400 Body temperature 98.2 [degF] Dr. Jennifer Gordon MD Work Phone: [facility] 03-27-2025 11:34-0400 Body weight 98.[address] Jennifer Gordon MD Work Phone: [facility] 03-27-2025 11:34-0400 Diastolic blood pressure 79 mm[Hg] Dr. Jennifer Gordon MD Work Phone: [facility] 03-27-2025 11:34-0400 Heart rate 96 /min Dr. Jennifer Gordon MD Work Phone: [facility] 03-27-2025 11:34-0400 Inhaled oxygen flow rate 4 L/min Dr. Jennifer Gordon MD Work Phone: [facility] 03-27-2025 11:34-0400 Respiratory rate 17 /min Dr. Jennifer Gordon MD Work Phone: [facility] 03-27-2025 11:34-0400 SaO2% (BldA) [Mass fraction] 95 % Dr. Jennifer Gordon MD Work Phone: [facility] 03-27-2025 11:34-0400 Systolic blood pressure 169 mm[Hg] Dr. Jennifer Gordon MD Work Phone: [facility] 02-18-2025 11:31-0400 Body temperature 98.1 [degF] Jossie Alcazar MD Work Phone: [facility] 02-18-2025 11:31-0400 Diastolic blood pressure 73 mm[Hg] Jossie Alcazar MD Work Phone: [facility] 02-18-2025 11:31-0400 Heart rate 61 /min Jossie Alcazar MD Work Phone: [facility] 02-18-2025 11:31-0400 Respiratory rate 18 /min Jossie Alcazar MD Work Phone: [facility] 02-18-2025 11:31-0400 SaO2% (BldA) [Mass fraction] 97 % Jossie Alcazar MD Work Phone: [facility] 02-18-2025 11:31-0400 Systolic blood pressure 138 mm[Hg] Jossie Alcazar MD Work Phone: [facility] 02-13-2025 15:45-0400 Body height 165.1 cm Jossie Alcazar MD Work Phone: [facility] 02-13-2025 15:45-0400 Body mass index (BMI) [Ratio] 35.94 kg/m2 Jossie Alcazar MD Work Phone: [facility] 02-13-2025 15:45-0400 Body weight 97.98 kg Jossie Alcazar MD Work Phone: [facility] 01-06-2025 10:18-0500 Body height 165.[address] Jennifer Gordon MD Work Phone: [facility] 01-06-2025 10:18-0500 Body mass index (BMI) [Ratio] 37.5 kg/m2 Dr. Jennifer Gordon MD Work Phone: [facility] 01-06-2025 10:18-0500 Body weight 102.[address] Jennifer Gordon MD Work Phone: [facility] 01-01-2025 16:41-0500 Body temperature 98 [degF] Dr. Jennifer Gordon MD Work Phone: [facility] 01-01-2025 16:41-0500 Diastolic blood pressure 79 mm[Hg] Dr. Jennifer Gordon MD Work Phone: [facility] 01-01-2025 16:41-0500 Heart rate 85 /min Dr. Jennifer Gordon MD Work Phone: [facility] 01-01-2025 16:41-0500 Respiratory rate 19 /min Dr. Jennifer Gordon MD Work Phone: [facility] 01-01-2025 16:41-0500 SaO2% (BldA) [Mass fraction] 94 % Dr. Jennifer Gordon MD Work Phone: [facility] 01-01-2025 16:41-0500 Systolic blood pressure 128 mm[Hg] Dr. Jennifer Gordon MD Work Phone: [facility] 01-01-2025 15:33-0500 Body mass index (BMI) [Ratio] 36.6 kg/m2 Dr. Jennifer Gordon MD Work Phone: [facility] 01-01-2025 15:33-0500 Body weight 99.[address] Jennifer Gordon MD Work Phone: [facility] 12-26-2024 11:24-0500 Body mass index (BMI) [Ratio] 38.1 kg/m2 Dr. Jennifer Gordon MD Work Phone: [facility] 12-26-2024 11:24-0500 Body temperature 98.2 [degF] Dr. Jennifer Gordon MD Work Phone: [facility] 12-26-2024 11:24-0500 Body weight 103.[address] Jennifer Gordon MD Work Phone: [facility] 12-26-2024 11:24-0500 Diastolic blood pressure 84 mm[Hg] Dr. Jennifer Gordon MD Work Phone: [facility] 12-26-2024 11:24-0500 Heart rate 82 /min Dr. Jennifer Gordon MD Work Phone: [facility] 12-26-2024 11:24-0500 Inhaled oxygen flow rate 4 L/min Dr. Jennifer Gordon MD Work Phone: [facility] 12-26-2024 11:24-0500 Respiratory rate 17 /min Dr. Jennifer Gordon MD Work Phone: [facility] 12-26-2024 11:24-0500 SaO2% (BldA) [Mass fraction] 95 % Dr. Jennifer Gordon MD Work Phone: [facility] 12-26-2024 11:24-0500 Systolic blood pressure 158 mm[Hg] Dr. Jennifer Gordon MD Work Phone: [facility] 10-16-2024 13:23-0500 Body mass index (BMI) [Ratio] 38.2 kg/m2 Dr. Jennifer Gordon MD Work Phone: [facility] 10-16-2024 13:23-0500 Body temperature 97.1 [degF] Dr. Jennifer Gordon MD Work Phone: [facility] 10-16-2024 13:23-0500 Body weight 104.[address] Jennifer Gordon MD Work Phone: [facility] 10-16-2024 13:23-0500 Diastolic blood pressure 78 mm[Hg] Dr. Jennifer Gordon MD Work Phone: [facility] 10-16-2024 13:23-0500 Heart rate 64 /min Dr. Jennifer Gordon MD Work Phone: [facility] 10-16-2024 13:23-0500 Inhaled oxygen flow rate 4 L/min Dr. Jennifer Gordon MD Work Phone: [facility] 10-16-2024 13:23-0500 Respiratory rate 20 /min Dr. Jennifer Gordon MD Work Phone: [facility] 10-16-2024 13:23-0500 SaO2% (BldA) [Mass fraction] 99 % Dr. Jennifer Gordno MD Work Phone: [facility] 10-16-2024 13:23-0500 Systolic blood pressure 122 mm[Hg] Dr. Jennifer Gordon MD Work Phone: [facility] 09-25-2024 08:12-0500 Body temperature 98.2 [degF] Jossie Alcazar MD Work Phone: [facility] 09-25-2024 08:12-0500 Diastolic blood pressure 80 mm[Hg] Jossie Alcazar MD Work Phone: [facility] 09-25-2024 08:12-0500 Heart rate 74 /min Jossie Alcazar MD Work Phone: [facility] 09-25-2024 08:12-0500 Respiratory rate 17 /min Jossie Alcazar MD Work Phone: [facility] 09-25-2024 08:12-0500 SaO2% (BldA) [Mass fraction] 96 % Jossie Alcazar MD Work Phone: [facility] 09-25-2024 08:12-0500 Systolic blood pressure 142 mm[Hg] Jossie Alcazar MD Work Phone: [facility] 09-25-2024 06:31-0500 Body mass index (BMI) [Ratio] 37.79 kg/m2 Jossie Alcazar MD Work Phone: [facility] 09-25-2024 06:31-0500 Body weight 103 kg Jossie Alcazar MD Work Phone: [facility] 09-21-2024 23:21-0500 Body height 165.1 cm Jossie Alcazar MD Work Phone: [facility] 09-18-2024 13:00-0500 Body height 165.1 cm Cb Boudreaux MD Work Phone: [facility] 09-18-2024 13:00-0500 Body mass index (BMI) [Ratio] 39.44 kg/m2 Cb Boudreaux MD Work Phone: [facility] 09-18-2024 13:00-0500 Body weight 107.5 kg Cb Boudreaux MD Work Phone: [facility] 09-18-2024 13:00-0500 Diastolic blood pressure 80 mm[Hg] Cb Boudreaux MD Work Phone: [facility] 09-18-2024 13:00-0500 Heart rate 70 /min Cb Boudreaux MD Work Phone: [facility] 09-18-2024 13:00-0500 SaO2% (BldA) [Mass fraction] 98 % Cb Boudreaux MD Work Phone: [facility] Comment on above: 4 [facility] 09-18-2024 13:00-0500 Systolic blood pressure 135 mm[Hg] Cb Boudreaux MD Work Phone: [facility] 09-03-2024 16:01-0400 Diastolic blood pressure 78 mm[Hg] Ramírez Cunningham MD Work Phone: [facility] 09-03-2024 16:01-0400 Heart rate 84 /min Ramírez Cunningham MD Work Phone: [facility] 09-03-2024 16:01-0400 SaO2% (BldA) [Mass fraction] 95 % Ramírez Cunningham MD Work Phone: [facility] 09-03-2024 16:01-0400 Systolic blood pressure 145 mm[Hg] Ramírez Cunningham MD Work Phone: [facility] 09-03-2024 11:16-0400 Body temperature 97.81 [degF] Ramírez Cunningham MD Work Phone: [facility] 09-03-2024 11:00-0400 Respiratory rate 16 /min Ramírez Cunningham MD Work Phone: [facility] 09-02-2024 18:27-0400 Body height 165.1 cm Ramírez Cunningham MD Work Phone: [facility] 09-02-2024 18:27-0400 Body mass index (BMI) [Ratio] 39.44 kg/m2 Ramírez Cunningham MD Work Phone: [facility] 09-02-2024 18:27-0400 Body weight 107.5 kg Ramírez Cunningham MD Work Phone: [facility] 09-02-2024 14:44-0400 SaO2% (BldA) [Mass fraction] 97.3 % Ramírez Cunningham MD Work Phone: [facility] 02-29-2024 14:06-0400 Body height 165.[address] Jennifer Gordon Work Phone: [facility] 02-29-2024 14:06-0400 Body mass index (BMI) [Ratio] 41.4 kg/m2 Dr. Jennifer Gordon Work Phone: [facility] 02-29-2024 14:06-0400 Body temperature 97.7 [degF] Dr. Jennifer Gordon Work Phone: [facility] 02-29-2024 14:06-0400 Body weight [address] Jennifer Gordon Work Phone: [facility] 02-29-2024 14:06-0400 Diastolic blood pressure 78 mm[Hg] Dr. Jennifer Gordon Work Phone: [facility] 02-29-2024 14:06-0400 Heart rate 102 /min Dr. Jennifer Gordon Work Phone: [facility] 02-29-2024 14:06-0400 Respiratory rate 20 /min Dr. Jennifer Gordon Work Phone: [facility] 02-29-2024 14:06-0400 SaO2% (BldA) [Mass fraction] 96 % Dr. Jennifer Gordon Work Phone: [facility] 02-29-2024 14:06-0400 Systolic blood pressure 128 mm[Hg] Dr. Jennifer Gordon Work Phone: [facility] 01-15-2024 07:18-0400 Body mass index (BMI) [Ratio] 40.7 kg/m2 Dr. Jennifer Gordon Work Phone: [facility] 01-15-2024 07:18-0400 Body temperature 96.9 [degF] Dr. Jennifer Gordon Work Phone: [facility] 01-15-2024 07:18-0400 Body weight 111.[address] Jennifer Gordon Work Phone: [facility] 01-15-2024 07:18-0400 Diastolic blood pressure 80 mm[Hg] Dr. Jennifer Gordon Work Phone: [facility] 01-15-2024 07:18-0400 Heart rate 84 /min Dr. Jennifer Gordon Work Phone: [facility] 01-15-2024 07:18-0400 Inhaled oxygen flow rate 4 L/min Dr. Jennifer Gordon Work Phone: [facility] 01-15-2024 07:18-0400 Respiratory rate 20 /min Dr. Jennifer Gordon Work Phone: [facility] 01-15-2024 07:18-0400 SaO2% (BldA) [Mass fraction] 97 % Dr. Jennifer Gordon Work Phone: [facility] 01-15-2024 07:18-0400 Systolic blood pressure 141 mm[Hg] Dr. Jennifer Gordon Work Phone: [facility] 12-11-2023 09:23-0500 Body mass index (BMI) [Ratio] 42.5 kg/m2 Dr. Jennifer Gordon Work Phone: [facility] 12-11-2023 09:23-0500 Body temperature 98 [degF] Dr. Jennifer Gordon Work Phone: [facility] 12-11-2023 09:23-0500 Body weight [address] Jennifer Gordon Work Phone: [facility] 12-11-2023 09:23-0500 Diastolic blood pressure 66 mm[Hg] Dr. Jennifer Gordon Work Phone: [facility] 12-11-2023 09:23-0500 Heart rate 75 /min Dr. Jennifer Gordon Work Phone: [facility] 12-11-2023 09:23-0500 Respiratory rate 18 /min Dr. Jennifer Gordon Work Phone: [facility] 12-11-2023 09:23-0500 SaO2% (BldA) [Mass fraction] 93 % Dr. Jennifer Gordon Work Phone: [facility] 12-11-2023 09:23-0500 Systolic blood pressure 103 mm[Hg] Dr. Jennifer Gordon Work Phone: [facility] 12-11-2023 09:21-0500 Body height 165.[address] Jennifer Gordon Work Phone: [facility] 12-11-2023 07:33-0500 Body mass index (BMI) [Ratio] 42.4 kg/m2 Dr. Jennifer Gordon Work Phone: [facility] 12-11-2023 07:33-0500 Body temperature 98.1 [degF] Dr. Jennifer Gordon Work Phone: [facility] 12-11-2023 07:33-0500 Body weight 115.[address] Jennifer Gordon Work Phone: [facility] 12-11-2023 07:33-0500 Diastolic blood pressure 82 mm[Hg] Dr. Jennifer Gordon Work Phone: [facility] 12-11-2023 07:33-0500 Heart rate 75 /min Dr. Jennifer Gordon Work Phone: [facility] 12-11-2023 07:33-0500 Inhaled oxygen flow rate 4 L/min Dr. Jennifer Gordon Work Phone: [facility] 12-11-2023 07:33-0500 Respiratory rate 18 /min Dr. Jennifer Gordon Work Phone: [facility] 12-11-2023 07:33-0500 SaO2% (BldA) [Mass fraction] 95 % Dr. Jennifer Gordon Work Phone: [facility] 12-11-2023 07:33-0500 Systolic blood pressure 128 mm[Hg] Dr. Jennifer Gordon Work Phone: [facility] 11-28-2023 14:55-0500 Body height 165.[address] Jennifer Gordon Work Phone: [facility] 11-28-2023 14:55-0500 Body mass index (BMI) [Ratio] 40.2 kg/m2 Dr. Jennifer Gordon Work Phone: [facility] 11-28-2023 14:55-0500 Body temperature 98 [degF] Dr. Jennifer Gordon Work Phone: [facility] 11-28-2023 14:55-0500 Body weight 109.[address] Jennifer Gordon Work Phone: [facility] 11-28-2023 14:55-0500 Diastolic blood pressure 66 mm[Hg] Dr. Jennifer Gordon Work Phone: [facility] 11-28-2023 14:55-0500 Heart rate 96 /min Dr. Jennifer Gordon Work Phone: [facility] 11-28-2023 14:55-0500 Respiratory rate 17 /min Dr. Jennifer Gordon Work Phone: [facility] 11-28-2023 14:55-0500 SaO2% (BldA) [Mass fraction] 93 % Dr. Jennifer Gordon Work Phone: [facility] 11-28-2023 14:55-0500 Systolic blood pressure 110 mm[Hg] Dr. Jennifer Gordon Work Phone: [facility] 10-17-2023 13:57-0500 Body mass index (BMI) [Ratio] 39.6 kg/m2 Dr. Jennifer Gordon Work Phone: [facility] 10-17-2023 13:57-0500 Body weight 107.[address] Jennifer Gordon Work Phone: [facility] 10-17-2023 13:57-0500 Diastolic blood pressure 81 mm[Hg] Dr. Jennifer Gordon Work Phone: [facility] 10-17-2023 13:57-0500 Heart rate 74 /min Dr. Jennifer Gordon Work Phone: [facility] 10-17-2023 13:57-0500 Respiratory rate 18 /min Dr. Jennifer Gordon Work Phone: [facility] 10-17-2023 13:57-0500 Systolic blood pressure 122 mm[Hg] Dr. Jennifer Gordon Work Phone: [facility] 06-05-2023 10:16-0400 Body height 165.[address] Rusty Dozier Work Phone: [facility] 06-05-2023 10:16-0400 Body mass index (BMI) [Ratio] 37.3 kg/m2 Dr. Rusty Dozier Work Phone: [facility] 06-05-2023 10:16-0400 Body temperature 95 [degF] Dr. Rusty Dozier Work Phone: [facility] 06-05-2023 10:16-0400 Body weight 101.[address] Rusty Dozier Work Phone: [facility] 06-05-2023 10:16-0400 Diastolic blood pressure 68 mm[Hg] Dr. Rusty Dozier Work Phone: [facility] 06-05-2023 10:16-0400 Heart rate 88 /min Dr. Rusty Dozier Work Phone: [facility] 06-05-2023 10:16-0400 Respiratory rate 18 /min Dr. Rusty Dozier Work Phone: [facility] 06-05-2023 10:16-0400 SaO2% (BldA) [Mass fraction] 95 % Dr. Rusty Dozier Work Phone: [facility] 06-05-2023 10:16-0400 Systolic blood pressure 124 mm[Hg] Dr. Rusty Dozier Work Phone: [facility] 04-18-2023 14:37-0400 Body height 165.[address] Rusty Dozier Work Phone: 5(453)741-355504 [place] [address] 04-18-2023 14:37-0400 Body mass index (BMI) [Ratio] 35.7 kg/m2 Dr. Rusty Dozier Work Phone: 1(613)030-864304 [place] [address] 04-18-2023 14:37-0400 Body weight 97.[address] Rusty Dozier Work Phone: 5(654)230-850504 [place] [address] 04-18-2023 14:37-0400 Diastolic blood pressure 84 mm[Hg] Dr. Rusty Dozier Work Phone: 3(499)346-951404 [place] [address] 04-18-2023 14:37-0400 Heart rate 99 /min Dr. Rusty Dozier Work Phone: 6(549)309-487404 [place] [address] 04-18-2023 14:37-0400 Respiratory rate 18 /min Dr. Rusty Dozier Work Phone: 3(453)603-429604 [place] [address] 04-18-2023 14:37-0400 Systolic blood pressure 122 mm[Hg] Dr. Rusty Dozier Work Phone: 6(732)746-545804 [place] [address] 02-24-2023 09:35-0400 Body mass index (BMI) [Ratio] 35.9 kg/m2 Dr. Rusty Dozier Work Phone: 2(164)109-703704 [place] [address] 02-24-2023 09:35-0400 Body temperature 97.9 [degF] Dr. Rusty Dozier Work Phone: 7(231)301-821104 [place] [address] 02-24-2023 09:35-0400 Body weight 97.[address] Rusty Dozier Work Phone: 0(180)778-310904 [place] [address] 02-24-2023 09:35-0400 Diastolic blood pressure 81 mm[Hg] Dr. Rusty Dozier Work Phone: 2(989)613-778104 [place] [address] 02-24-2023 09:35-0400 Heart rate 104 /min Dr. Rusty Dozier Work Phone: 8(426)346-857204 [place] [address] 02-24-2023 09:35-0400 Inhaled oxygen flow rate 4 L/min Dr. Rusty Dozier Work Phone: [facility] 02-24-2023 09:35-0400 Respiratory rate 22 /min Dr. Rusty Dozier Work Phone: [facility] 02-24-2023 09:35-0400 SaO2% (BldA) [Mass fraction] 97 % Dr. Rusty Dozier Work Phone: [facility] 02-24-2023 09:35-0400 Systolic blood pressure 118 mm[Hg] Dr. Rusty Dozier Work Phone: [facility] 02-07-2023 14:38-0400 Body height 165.1 cm [employer] MANAGER-C Jonathan Hellinger RECEPTION CENTRE MANAGER Work Phone: [facility] 02-07-2023 14:38-0400 Body mass index (BMI) [Ratio] 35.2 kg/m2 [employer] C[employer] MANAGER-C Jonathan Hellinger RECEPTION CENTRE MANAGER Work Phone: [facility] 02-07-2023 14:38-0400 Body temperature 98.2 [degF] RE[employer] CENT[employer] MANAGER-C Jonathan Hellinger RECEPTION CENTRE MANAGER Work Phone: [facility] 02-07-2023 14:38-0400 Body weight 95.87 kg RE[employer]ION C[employer] MANAGER-C Jonathan Hellinger RECEPTION CENTRE MANAGER Work Phone: [facility] 02-07-2023 14:38-0400 Diastolic blood pressure 70 mm[Hg] RE[employer] C[employer] MANAGER-C Jonathan Hellinger RECEPTION CENTRE MANAGER Work Phone: [facility] 02-07-2023 14:38-0400 Heart rate 127 /min RE[employer] C[employer] MANAGER-C Jonathan Hellinger RECEPTION CENTRE MANAGER Work Phone: [facility] 02-07-2023 14:38-0400 Inhaled oxygen flow rate 4 L/min [employer] C[employer] MANAGER-C Jonathan Hellinger RECEPTION CENTRE MANAGER Work Phone: [facility] 02-07-2023 14:38-0400 Respiratory rate 17 /min RE[employer] C[employer] MANAGER-C Jonathan Hellinger RECEPTION CENTRE MANAGER Work Phone: [facility] 02-07-2023 14:38-0400 SaO2% (BldA) [Mass fraction] 95 % [employer] C[employer] MANAGER-C Jonathan Hellinger RECEPTION CENTRE MANAGER Work Phone: [facility] 02-07-2023 14:38-0400 Systolic blood pressure 126 mm[Hg] RE[employer] C[employer] MANAGER-C Jonathan Hellinger RECEPTION CENTRE MANAGER Work Phone: [facility] 12-01-2022 11:21-0500 Diastolic blood pressure 60 mm[Hg] RE[employer] C[employer] MANAGER-C Jonathan Hellinger RECEPTION CENTRE MANAGER Work Phone: [facility] 12-01-2022 11:21-0500 Heart rate 82 /min RE[employer] C[employer] MANAGER-C Jonathan Hellinger RECEPTION CENTRE MANAGER Work Phone: [facility] 12-01-2022 11:21-0500 Systolic blood pressure 108 mm[Hg] RE[employer] C[employer] MANAGER-C Jonathan Hellinger RECEPTION CENTRE MANAGER Work Phone: [facility] 12-01-2022 08:06-0500 Body height 165.1 cm RE[employer] C[employer] MANAGER-C Jonathan Hellinger RECEPTION CENTRE MANAGER Work Phone: [facility] 12-01-2022 08:06-0500 Body mass index (BMI) [Ratio] 34.9 kg/m2 [employer] C[employer] MANAGER-C Jonathan Hellinger RECEPTION CENTRE MANAGER Work Phone: [facility] 12-01-2022 08:06-0500 Body temperature 97.2 [degF] RE[employer] C[employer] MANAGER-C Jonathan Hellinger RECEPTION CENTRE MANAGER Work Phone: [facility] 12-01-2022 08:06-0500 Body weight 95.25 kg RE[employer] C[employer] MANAGER-C Jonathan Hellinger RECEPTION CENTRE MANAGER Work Phone: [facility] 12-01-2022 08:06-0500 Inhaled oxygen flow rate 4 L/min [employer] C[employer] MANAGER-C Jonathan Hellinger RECEPTION CENTRE MANAGER Work Phone: [facility] 12-01-2022 08:06-0500 Respiratory rate 16 /min RE[employer] C[employer] MANAGER-C Jonathan Hellinger RECEPTION CENTRE MANAGER Work Phone: [facility] 12-01-2022 08:06-0500 SaO2% (BldA) [Mass fraction] 99 % [employer] C[employer] MANAGER-C Jonathan Rutherford RECEPTION CENTRE MANAGER Work Phone: [facility] 10-06-2022 15:00-0500 Body height 165.[address] Rusty Dozier Work Phone: [facility] Work Phone: 10-06-2022 15:00-0500 Body mass index (BMI) [Ratio] 36.8 kg/m2 Dr. Rusty Dozier Work Phone: [facility] 10-06-2022 15:00-0500 Body temperature 97.8 [degF] Dr. Rusty Dozier Work Phone: [facility] 10-06-2022 15:00-0500 Body weight 100.[address] Rusty Dozier Work Phone: [facility] 10-06-2022 15:00-0500 Diastolic blood pressure 68 mm[Hg] Dr. Rusty Dozier Work Phone: [facility] 10-06-2022 15:00-0500 Heart rate 51 /min Dr. Rusty Dozeir Work Phone: [facility] 10-06-2022 15:00-0500 Respiratory rate 16 /min Dr. Rusty Dozier Work Phone: [facility] 10-06-2022 15:00-0500 SaO2% (BldA) [Mass fraction] 96 % Dr. Rusty Dozier Work Phone: [facility] 10-06-2022 15:00-0500 Systolic blood pressure 138 mm[Hg] Dr. Rusty Dozier Work Phone: [facility] 07-19-2022 14:30-0400 Body height 162.6 cm Debra Adamson STEAM TENDER Work Phone: [facility] 07-19-2022 14:30-0400 Body mass index (BMI) [Ratio] 39.31 kg/m2 Debra Adamson STEAM TENDER Work Phone: [facility] 07-19-2022 14:30-0400 Body weight 103.87 kg Debra Adamson STEAM TENDER Work Phone: [facility] 07-19-2022 14:30-0400 Diastolic blood pressure 44 mm[Hg] Debra Adamson STEAM TENDER Work Phone: [facility] 07-19-2022 14:30-0400 Heart rate 88 /min Debra Adamson STEAM TENDER Work Phone: [facility] 07-19-2022 14:30-0400 SaO2% (BldA) [Mass fraction] 96 % Debra Adamson STEAM TENDER Work Phone: [facility] Comment on above: [facility] 07-19-2022 14:30-0400 Systolic blood pressure 142 mm[Hg] Debra Adamson STEAM TENDER Work Phone: [facility] 07-08-2022 11:26-0400 Body height 162.6 cm Estrada Garcia MD Work Phone: [facility] 07-08-2022 11:26-0400 Body mass index (BMI) [Ratio] 39.07 kg/m2 Estrada Garcia MD Work Phone: [facility] 07-08-2022 11:26-0400 Body temperature 98.91 [degF] Estrada Garcia MD Work Phone: [facility] 07-08-2022 11:26-0400 Body weight 103.24 kg Estrada Garcia MD Work Phone: [facility] 07-08-2022 11:26-0400 Diastolic blood pressure 81 mm[Hg] Estrada Garcia MD Work Phone: [facility] 07-08-2022 11:26-0400 Heart rate 73 /min Estrada Garcia MD Work Phone: [facility] 07-08-2022 11:26-0400 Respiratory rate 18 /min Estrada Garcia MD Work Phone: [facility] 07-08-2022 11:26-0400 SaO2% (BldA) [Mass fraction] 97 % Estrada Garcia MD Work Phone: [facility] 07-08-2022 11:26-0400 Systolic blood pressure 119 mm[Hg] Estrada Garcia MD Work Phone: [facility] 06-29-2022 08:54-0400 Respiratory rate 18 /min Jaiden Bagley MD Work Phone: [facility] 06-29-2022 07:47-0400 Body temperature 98.01 [degF] Jaiden Bagley MD Work Phone: [facility] 06-29-2022 07:47-0400 Diastolic blood pressure 95 mm[Hg] Jaiden Bagley MD Work Phone: [facility] 06-29-2022 07:47-0400 Heart rate 79 /min Jaiden Bagley MD Work Phone: [facility] 06-29-2022 07:47-0400 SaO2% (BldA) [Mass fraction] 95 % Jaiden Bagley MD Work Phone: [facility] 06-29-2022 07:47-0400 Systolic blood pressure 173 mm[Hg] Jaiden Bagley MD Work Phone: [facility] 06-21-2022 17:00-0400 Body height 162.6 cm Jadien Bagley MD Work Phone: [facility] 06-21-2022 17:00-0400 Body mass index (BMI) [Ratio] 39.82 kg/m2 Jaiden Bagley MD Work Phone: [facility] 06-21-2022 17:00-0400 Body weight 105.23 kg Jaiden Bagley MD Work Phone: [facility] 04-04-2022 11:29-0400 Body temperature 97.9 [degF] Jada Vargas MD Work Phone: [facility] 04-04-2022 06:00-0400 Heart rate 87 /min Jada Vargas MD Work Phone: [facility] 04-04-2022 06:00-0400 Respiratory rate 19 /min Jada Vargas MD Work Phone: [facility] 04-04-2022 06:00-0400 SaO2% (BldA) [Mass fraction] 99 % Jada Vargas MD Work Phone: [facility] 04-04-2022 03:50-0400 Body mass index (BMI) [Ratio] 40.64 kg/m2 Jada Vargas MD Work Phone: [facility] 04-04-2022 03:50-0400 Body weight 107.4 kg Jada Vargas MD Work Phone: [facility] 04-03-2022 23:00-0400 Diastolic blood pressure 93 mm[Hg] Jada Vargas MD Work Phone: [facility] 04-03-2022 23:00-0400 Systolic blood pressure 186 mm[Hg] Jada Vargas MD Work Phone: [facility] 03-01-2022 09:47-0400 Body mass index (BMI) [Ratio] 43.36 kg/m2 Jada Vargas MD Work Phone: [facility] 03-01-2022 09:47-0400 Body weight 114.58 kg Jada Vargas MD Work Phone: [facility] 03-01-2022 09:47-0400 Diastolic blood pressure 74 mm[Hg] Jada Vargas MD Work Phone: [facility] 03-01-2022 09:47-0400 Heart rate 90 /min Jada Vargas MD Work Phone: [facility] 03-01-2022 09:47-0400 Systolic blood pressure 142 mm[Hg] Jada Vargas MD Work Phone: [facility] 12-30-2021 10:43-0500 SaO2% (BldA) [Mass fraction] 94 % Estrada Garcia MD Work Phone: [facility] Comment on above: on room air after rest 12-30-2021 10:35-0500 Body mass index (BMI) [Ratio] 41.76 kg/m2 Estrada Garcia MD Work Phone: [facility] 12-30-2021 10:35-0500 Body temperature 98.29 [degF] Estrada Garcia MD Work Phone: [facility] 12-30-2021 10:35-0500 Body weight 110.36 kg Estrada Garcia MD Work Phone: [facility] 12-30-2021 10:35-0500 Diastolic blood pressure 68 mm[Hg] Estrada Garcia MD Work Phone: [facility] 12-30-2021 10:35-0500 Heart rate 107 /min Estrada Garcia MD Work Phone: [facility] 12-30-2021 10:35-0500 Systolic blood pressure 109 mm[Hg] Estrada Garcia MD Work Phone: [facility] 08-04-2021 14:09-0400 Body height 162.6 cm Mo Van Buren STEAM TENDER Work Phone: [facility] 08-04-2021 14:09-0400 Body mass index (BMI) [Ratio] 39.82 kg/m2 Mo Service Observer Chief STEAM TENDER Work Phone: [facility] 08-04-2021 14:09-0400 Body weight 105.23 kg Mo Van Buren STEAM TENDER Work Phone: [facility] 08-04-2021 14:09-0400 Diastolic blood pressure 82 mm[Hg] Mo Service Observer Chief STEAM TENDER Work Phone: [facility] 08-04-2021 14:09-0400 Heart rate 110 /min Om Van Buren STEAM TENDER Work Phone: [facility] 08-04-2021 14:09-0400 SaO2% (BldA) [Mass fraction] 93 % Mo Van Buren STEAM TENDER Work Phone: [facility] 08-04-2021 14:09-0400 Systolic blood pressure 138 mm[Hg] Mo Service Observer Chief STEAM TENDER Work Phone: [facility] 04-14-2021 19:15-0400 Diastolic blood pressure 92 mm[Hg] Georgie Vázquez MD Work Phone: [facility] 04-14-2021 19:15-0400 Heart rate 78 /min Georgie Vázquez MD Work Phone: [facility] 04-14-2021 19:15-0400 Respiratory rate 16 /min Georgie Vázquez MD Work Phone: [facility] 04-14-2021 19:15-0400 SaO2% (BldA) [Mass fraction] 93 % Georgie Vázquez MD Work Phone: [facility] 04-14-2021 19:15-0400 Systolic blood pressure 160 mm[Hg] Georgie Vázquez MD Work Phone: [facility] 04-14-2021 15:19-0400 Body temperature 98.2 [degF] Georgie Vázquez MD Work Phone: [facility] 04-14-2021 15:10-0400 Body height 165.1 cm Georgie Vázquez MD Work Phone: [facility] 04-14-2021 15:10-0400 Body mass index (BMI) [Ratio] 39.94 kg/m2 Georgie Vázquez MD Work Phone: [facility] 04-14-2021 15:10-0400 Body weight 108.86 kg Georgie Vázquez MD Work Phone: [facility] 11-02-2020 13:24-0500 BMI (Body Mass Index) 36.61 kg/m2 Lindrith [facility] 11-02-2020 13:24-0500 Body Temperature 98.91 [degF] Mars [facility] 11-02-2020 13:24-0500 Body weight 99.79 kg Mars [facility] 11-02-2020 13:24-0500 BP Diastolic 91 mm[Hg] Mars [facility] 11-02-2020 13:24-0500 BP Systolic 175 mm[Hg] Mars [facility] 11-02-2020 13:24-0500 Height 165.1 cm [facility] 11-02-2020 13:24-0500 Pulse (Heart Rate) 97 /min [facility] 11-02-2020 13:24-0500 Pulse Oximetry 97 % [facility] 11-02-2020 13:24-0500 Respiratory Rate 20 /min [facility] 09-15-2020 14:27-0500 BMI (Body Mass Index) 34.28 kg/m2 Rivas [facility] 09-15-2020 14:27-0500 Body weight 93.44 kg Rivas [facility] 09-15-2020 14:27-0500 BP Diastolic 82 mm[Hg] Rivas [facility] 09-15-2020 14:27-0500 BP Systolic 147 mm[Hg] Rivas [facility] 09-15-2020 14:27-0500 Height 165.1 cm Rivas [facility] 09-15-2020 14:27-0500 Pulse (Heart Rate) 120 /min Rivas [facility] 09-15-2020 14:27-0500 Respiratory Rate 18 /min [facility] 05-07-2019 15:42-0400 Body Temperature 98.2 [degF] [facility] 05-07-2019 15:42-0400 BP Diastolic 77 mm[Hg] [facility] 05-07-2019 15:42-0400 BP Systolic 127 mm[Hg] [facility] 05-07-2019 15:42-0400 Pulse (Heart Rate) 107 /min [facility] 05-07-2019 15:42-0400 Pulse Oximetry 96 % [facility] 05-07-2019 15:42-0400 Respiratory Rate 14 /min [facility] 05-07-2019 15:15-0400 BMI (Body Mass Index) 34.28 kg/m2 [facility] 05-07-2019 15:15-0400 Body weight 93.44 kg [facility] 05-07-2019 15:15-0400 Height 165.1 cm Jose Long [facility] 04-10-2019 13:11-0400 BMI (Body Mass Index) 34.28 kg/m2 Rusty Dozier [facility] 04-10-2019 13:11-0400 Height 165.1 cm Rusty Dozier [facility] 04-10-2019 13:11-0400 Weight 93.44 kg Rusty Dozier [facility] 04-05-2019 13:35-0400 BMI (Body Mass Index) 34.28 kg/m2 Whitley Martinez [facility] 04-05-2019 13:35-0400 BP Diastolic 76 mm[Hg] Whitley Hunterhmy [facility] 04-05-2019 13:35-0400 BP Systolic 145 mm[Hg] Whitley Juan [facility] 04-05-2019 13:35-0400 Height 165.1 cm Whitley Juan [facility] 04-05-2019 13:35-0400 Pulse (Heart Rate) 79 /min Whitley [facility] 04-05-2019 13:35-0400 Pulse [facility]ximetry 93 % [facility] 13:35-0400 Weight 93.44 kg Whitley Juan [facility] 09-17-2018 16:56-0500 Body temperature 37.0 [facility] [place] Comment on above: Performed By: #### CBCWOD, PT, PTT, DDIM R, EDCTNI, NTPROBNP, CHEM8, LIPASE, CMETADD #### Unless otherwise noted, all testing performed by [facility] [address] [address] CLIA: [id number] Construction Plumber: Maurice Coello M.D. 07-04-2017 13:06-0400 BMI (Body Mass Index) 33.28 kg/m2 [facility] Work Phone: 07-04-2017 13:06-0400 Height 165.1 cm [facility] Work Phone: 07-04-2017 13:06-0400 Weight 90[address] [facility] Work Phone: Encounters Encounter Date Encounter Type Care Provider Facility Start: 07-23-2025 ambulatory Doctor Unknown [facility] Start: 07-11-2025 ambulatory Jennifer Wheeler Facility :[facility] Start: 07-09-2025 ambulatory Doctor Unknown [facility] Start: 06-26-2025 End: 06-26-[address] Jennifer Gordon MD Work Phone: -[facility] Start: 06-26-2025 End: 06-26-2025 Patient encounter procedure Mihaela Simpson RE[employer] C[employer]RE MANAGER-C -[facility] Work Phone: Start: 06-26-2025 End: 06-26-2025 Patient encounter procedure Mihaela Simpson RECEPTION CENTRE MANAGER-C -[facility] Work Phone: Start: 06-26-2025 End: 06-26-[address] Jennifer Gordon MD Work Phone: -[facility] Start: 06-26-2025 End: 06-26-2025 ambulatory Jennifer Gordon Facility:[facility] Start: 06-24-2025 End: 06-24-[address] Jnenifer Gordon MD Work Phone: -Pulmonary Services/Neurology Start: 06-24-2025 End: 06-24-2025 Patient encounter procedure BARBARA Black -Pulmonary Services/Neurology Work Phone: Start: 06-24-2025 End: 06-24-2025 ambulatory Jnenifer Gordon Facility:[facility] Start: 06-17-2025 End: 06-17-2025 Patient encounter procedure RECEPTION CENTRE MANAGER Colette Black -[facility] Work Phone: Start: 06-17-2025 End: 06-17-[address] Jennifer Gordon MD Work Phone: -[facility] Start: 06-17-2025 End: 06-17-2025 Telephone encounter [facility] Comment on above: Follow Up (Medical) Start: 06-11-2025 End: 06-11-2025 Telephone encounter Meliza [facility] Start: 05-07-2025 End: 05-07-[address] Jennifer Gordon MD Work Phone: -Ultrasound [facility] Start: 05-07-2025 End: 05-07-[address] Jennifer Gordon MD -Ultrasound [facility] Work Phone: Start: 05-07-2025 End: 05-07-2025 ambulatory Jennifer Gordon Facility:[facility] Start: 05-02-2025 End: 05-02-2025 Telephone encounter Meaghan Mary[facility] Start: 04-30-2025 End: 04-30-2025 Office outpatient visit 25 minutes Cb Boudreaux MD Work Phone: [facility] Comment on above: NSVT (nonsustained v entricular tachycardia) ([facility]LY [facility]) Start: 04-30-2025 End: 04-30-2025 ambulatory PHYSICIAN NO [facility] Start: 04-28-2025 ambulatory JONATHAN RUTHERFORD [facility] Start: 04-17-2025 End: 04-17-[address] Jennifer Gordon MD Work Phone: [facility] Work Phone: Start: 04-17-2025 End: 04-17-2025 Patient encounter procedure Sasha Heredia RECEPTION CENTRE MANAGER-C -Cat Scan [facility] Work Phone: Start: 2025 End: [address] Jennifer Gordon MD -[facility] Work Phone: Start: 2025 End: 04-17-[address] Jennifer Gordon MD Work Phone: [facility] Work Phone: Start: 2025 End: 2025 ambulatory Jennifer Gordon Facility:[facility] Start: 04-07-2025 End: 04-07-2025 ambulatory CB TRINIDAD [facility] Start: 04-04-2025 End: 04-04-2025 Patient encounter procedure RECEPTION CENTRE MANAGER Colette Black -[facility] Work Phone: Start: 04-04-2025 End: 04-04-[address] Jennifer Gordon MD Work Phone: [facility] Work Phone: Start: 04-03-2025 End: 04-03-[address] Cary Jacobsen MD -[facility] Work Phone: Start: 04-03-2025 End: 04-03-[address] Jennifer Gordon MD Work Phone: [facility] Work Phone: Start: 03-27-2025 End: 03-27-[address] Rusty Dozier MD -[facility] Work Phone: Start: 03-27-2025 End: 03-27-2025 ambulatory Jennifer Gordon Facility:[facility] Start: 03-05-2025 End: 06-15-2025 Telephone encounter Shaina Boykin MD Work Phone: [facility] Comment on above: Illness Start: 02-28-2025 ambulatory Cary Jacobsen Facility :[facility] Start: 02-27-2025 End: 02-27-[address] Melvin Oshea MD -[facility] Start: 02-27-2025 End: 02-27-2025 ambulatory Melvin Oshea Facility:[facility] Start: 02-27-2025 End: 02-27-2025 Patient encounter procedure Hui SANCHEZ -[facility] Work Phone: Start: 02-27-2025 End: 02-27-2025 ambulatory Hui Whitehead Facility:[facility] Start: 02-25-2025 End: 02-25-[address] Cary Jacobsen MD -[facility] Work Phone: Start: 02-25-2025 End: 02-25-2025 ambulatory Cary Jacobsen Facility:[facility] Start: 02-13-2025 End: 02-18-2025 Evaluation and management of inpatient Astrid Sanders DO Work Phone: [facility] Start: 02-05-2025 End: 02-05-2025 [facility] on above: Refill Request (Dolj enrique ) Start: 02-03-2025 End: 02-03-[address] Jennifer Gordon MD Work Phone: [facility] Work Phone: Start: 02-03-2025 End: 02-03-2025 Patient encounter procedure Hui SANCHEZ -[facility] Work Phone: Start: 02-03-2025 ambulatory Flavia Sanabriaan Facility:[facility] Start: 02-03-2025 End: 02-03-2025 ambulatory Hui Whitehead Facility:[facility] Start: 01-21-2025 End: 01-21-[address] Cary Jacobsen MD -[facility] Work Phone: Start: 01-21-2025 End: 01-21-2025 ambulatory Cary Jacobsen Facility:[facility] Start: 01-13-2025 End: 01-13-[address] Jennifer Gordon MD Work Phone: [facility] Work Phone: Start: 01-13-2025 End: 01-13-[address] Rusty Dozier MD -[facility] Work Phone: Start: 01-13-2025 End: 01-13-2025 ambulatory Jennifer Gordon Facility:[facility] Start: 01-06-2025 End: 01-06-2025 Patient encounter procedure Hui SANCHEZ -[facility] Work Phone: Start: 01-06-2025 End: 01-06-2025 ambulatory Hui Whitehead Facility:[facility] Start: 01-01-2025 End: 01-01-2025 Emergency department patient visit Dr. Teddy Rust MD -Emergency Department Work Phone: Start: 12-26-2024 End: 12-26-[address] Rusty Dozier MD -[facility] Work Phone: Start: 12-26-2024 End: 12-26-2024 ambulatory Rusty Dozier Facility:[facility] Start: 11-12-2024 End: 11-12-2024 Emergency department patient visit JONATAN [facility] Start: 10-25-2024 ambulatory PHYSICIAN NO [facility] Ambulatory Start: 10-23-2024 End: 10-23-2024 Orders Only Cb Boudreaux MD Work Phone: [facility] Comment on above: Ventricular tachycar liv (HCC) (Primary Dx); Palpitations; NSVT (nonsustained ventricular tachycardia) (HCC) Start: 10-16-2024 End: 10-16-[address] Jennifer Gordon MD -[facility] Work Phone: Start: 10-16-2024 End: 10-16-2024 ambulatory Jennifer Gordon Facility:[facility] Start: 10-15-2024 End: 10-15-2024 Telephone encounter Cecille Johnson LPN [facility] Comment on above: Medication Prior Aut horization (General) (Dojolvi) Start: 09-21-2024 End: 09-25-2024 Evaluation and management of inpatient Sally Talbot MD Work Phone: [facility] Intermediate Start: 09-18-2024 End: 09-18-2024 Office outpatient new 45 minutes Provider Not In System [facility] Comment on above: Ventricular tachycar liv (HCC); Palpitations; NSVT (nonsustained ventricular tachycardia) (HCC) Start: 09-18-2024 End: 09-18-2024 ambulatory PHYSICIAN NO [facility] Start: 09-16-2024 End: 09-16-2024 Orders Only Cb Boudreaux MD Work Phone: [facility] Comment on above: NSVT (nonsustained v entricular tachycardia) (HCC) (Primary Dx) Start: 09-02-2024 End: 09-03-2024 Evaluation and management of inpatient Thee Salmeron MD Work Phone: [facility] Start: 09-02-2024 End: 09-03-2024 Orders Only Rivas Jules MD Work Phone: [facility]opedic [facility] Sports [facility] Comment on above: Pain (Primary Dx) Start: 08-21-2024 ambulatory JONATHAN RUTHERFORD [facility] Start: 08-15-2024 End: 08-15-2024 ambulatory Jennifer Gordon Facility:[facility] Start: 08-14-2024 End: 08-14-2024 Transcribe Orders Provider Not In System [facility] Start: 07-29-2024 ambulatory Jennifer Gordon Facility :[facility] Start: 03-06-2024 Refill Raya Dutton MA Work Phone: [facility] Comment on above: Medication Refill (L evocarnitine ) Start: 02-29-2024 End: 02-29-[address] Jennifer Gordon Work Phone: [facility] Work Phone: Start: 02-29-2024 End: 02-29-[address] Jennifer Gordon Work Phone: [facility] Work Phone: Start: 02-21-2024 End: 02-21-[address] Jennifer Gordon Work Phone: [facility] Work Phone: Start: 02-21-2024 End: 02-21-[address] Jennifer Gordon Work Phone: [facility]-Pulmonary Services/Neurology Work Phone: Start: 02-07-2024 Non-patient / Non-visit Dr. Stevens Work Phone: [facility] Start: 01-29-2024 Refill Cecille Johnson LPN [facility] Comment on above: Medication Refill (D ojolvi) Start: 01-15-2024 End: 01-15-[address] Jennifer Gordon Work Phone: [facility] Pulmonary Medicine Work Phone: Start: 01-03-2024 End: 01-03-[address] Jennifer Gordon Work Phone: [facility] Work Phone: Start: 01-03-2024 End: 01-03-[address] Jennifer Gordon Work Phone: [facility] Work Phone: Start: 12-29-2023 End: 12-29-[address] Jennifer Gordon Work Phone: [facility] Work Phone: Start: 12-29-2023 End: 12-29-[address] Jennifer Gordon Work Phone: [facility]-Laboratory Work Phone: Start: 12-11-2023 End: 12-11-[address] Jennifer Gordon Work Phone: [facility] Work Phone: Start: 12-11-2023 End: 12-11-[address] Jennifer Gordon Work Phone: [facility] Internal Medicine Work Phone: Start: 11-28-2023 End: 11-28-[address] Jennifer Gordon Work Phone: [facility] Work Phone: Start: 11-28-2023 End: 11-28-[address] Jennifer Gordon Work Phone: [facility] Neurology Work Phone: Start: 10-17-2023 Telephone encounter Meliza Rust [facility] Start: 10-17-2023 End: 10-17-[address] Jennifer Gordon Work Phone: [facility] Work Phone: Start: 10-16-2023 End: 10-16-2023 Office outpatient visit 15 minutes Rivas Jules MD Work Phone: [facility] Comment on above: Trigger finger of le ft thumb (Primary Dx) Start: 10-06-2023 Orders Only Tawanna Verma FINISHING RANGE SUPERVISOR [facility] Orthopedic and Sports Medicine Comment on above: Pain (Primary Dx) Start: 07-03-2023 End: 07-03-[address] Jennifer Gordon Work Phone: [facility] Work Phone: Start: 07-03-2023 End: 07-03-[address] Jennifer Gordon Work Phone: [facility] Work Phone: Start: 06-05-2023 Non-patient / Non-visit Dr. Ra ludy Dozier Work Phone: [facility] Start: 06-05-2023 End: 06-05-[address] Jennifer Gordon Work Phone: [facility] Work Phone: Start: 06-05-2023 End: 06-05-[address] Rusty Dozier Work Phone: [facility]-Laboratory, [facility] Start: 06-05-2023 End: 06-05-[address] Rusty Dozier Work Phone: [facility] Internal Medicine Work Phone: Start: 06-01-2023 End: 06-01-[address] Rusty Dozier Work Phone: [facility] Work Phone: Start: 06-01-2023 End: 06-01-[address] [facility] Work [facility] Start: 05-01-2023 Non-patient / Non-visit Dr. Ra ludy Dozier Work Phone: [facility] Start: 05-01-2023 End: 05-01-[address] Rusty Dozier Work Phone: [facility] Work Phone: Start: 05-01-2023 End: 05-01-[address] Rusty Dozier [facility] Work Phone: Start: 04-25-2023 End: 04-25-2023 Non-patient / Non-visit Dr. Rusty Dozier Work Phone: [facility] Work Phone: Start: 04-25-[address] Andrew Dozier Work Phone: [facility] Work Phone: Start: 04-18-2023 End: 04-18-[address] Rusty Dozier Work Phone: [facility] Work Phone: Start: 03-20-2023 Non-patient / Non-visit Dr. Ra ludy Dozier Work Phone: [facility] Work Phone: Start: 02-27-2023 Telephone encounter Jada Glez [facility] Comment on above: FOLLOW-UP Start: 02-24-2023 End: 02-24-[address] Rusty Dozier Work Phone: 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 Start: 02-07-2023 End: 02-07-2023 ambulatory RECEPTION CENTRE MANAGER-C Jonathan Rutherford RECEPTION CENTRE MANAGER Work Phone: [facility] Work Phone: Start: 02-07-2023 End: 02-07-2023 Patient encounter procedure RECEPTION CENTRE MANAGER-C Jonathan Rutherford RECEPTION CENTRE MANAGER Work Phone: [facility] Start: 02-07-2023 End: 02-07-2023 Patient encounter procedure RECEPTION CENTRE MANAGER-C Jonathan Rutherford RECEPTION CENTRE MANAGER Work Phone: [facility] Neurology Start: 12-28-2022 Non-patient / Non-visit RECEPTION CENTRE MANAGER-C T yanet Rutherford RECEPTION CENTRE MANAGER Work Phone: [facility] Start: 12-28-2022 End: 12-28-2022 ambulatory RECEPTION CENTRE MANAGER-C Jonathan Gallegoer RECEPTION CENTRE MANAGER Work Phone: [facility] Work Phone: Start: 12-28-2022 End: 12-28-2022 Patient encounter procedure RECEPTION CENTRE MANAGER-C Jonathan Gallegoer RECEPTION CENTRE MANAGER Work Phone: [facility] Start: 12-14-2022 Orders Only uSzan Gordon MD Work Phone: [facility] Start: 12-07-2022 End: 12-07-2022 Patient encounter procedure RECEPTION CENTRE MANAGER-C Jonathan Rutherford RECEPTION CENTRE MANAGER Work Phone: [facility] Start: 12-06-2022 Telephone encounter Rocio Nickerson LP N [facility] Comment on above: Medication Review [facility] (Dojolivi) Start: 12-05-2022 Documentation procedure Khadra Garcia [facility] Comment on above: Refill request for D OJOLVI. Start: 12-01-2022 End: 12-01-2022 ambulatory RECEPTION CENTRE MANAGER-C Jonathan Rutherford RECEPTION CENTRE MANAGER Work Phone: [facility] Work Phone: Start: 12-01-2022 End: 12-01-2022 Patient encounter procedure RECEPTION CENTRE MANAGER-C Jonathan Rutherford RECEPTION CENTRE MANAGER Work Phone: [facility] Start: 12-01-2022 End: 12-01-2022 Patient encounter procedure RECEPTION CENTRE MANAGER-C Jonathan Rutherford RECEPTION CENTRE MANAGER Work Phone: [facility] Internal Medicine Start: 11-23-2022 Telephone encounter Jada Herrera [facility] Comment on above: Change Appointment Start: 10-06-2022 End: 10-06-[address] Rusty Dozier Work Phone: [facility] Work Phone: Start: 10-06-2022 End: 10-06-[address] Rusty Dozier Work Phone: [facility] Start: 10-06-2022 End: 10-06-[address] Rusty Dozier Work Phone: [facility] Neurology Start: 08-30-2022 Telephone encounter Shakira Cline MD Work Phone: [facility] Start: 07-19-2022 End: 07-19-2022 Office outpatient visit 15 minutes Debra Adamson RUIZ Work Phone: [facility] Gastroenterology Comment on above: Pain of upper abdome n (Primary Dx); Nausea; Diarrhea, unspecified type Start: 07-08-2022 End: 07-08-2022 Office outpatient visit 25 minutes Estrada Garcia MD Work Phone: [facility] Physicians Comment on above: COPD exacerbation (H CC) (Primary Dx); Screening for lung cancer Start: 06-21-2022 Critical care ill/in jured patient init 30-74 min Jaiden Bagley MD Work Phone: [facility] Start: 06-21-2022 End: 06-29-2022 Evaluation and management of inpatient Jaiden Bagley MD Work Phone: [facility] Med Surg Start: 03-30-2022 End: 04-04-2022 Evaluation and management of inpatient JADA VARGAS [facility] Start: 03-30-2022 End: 04-04-2022 Evaluation and management of inpatient Jada Vargas MD Work Phone: [facility] Start: 03-28-2022 Documentation procedure Jyoti Thomas on [facility] Start: 03-21-2022 Documentation procedure Jyoti Thomas on [facility] Start: 03-08-2022 Orders Only [facility] Comment on above: Rectal prolapse (Sarah aye Dx); Preoperative testing; Abdominal pain, unspecified abdominal location Start: 03-08-2022 Patient encounter status Jyoti Patel son [facility] Start: 03-07-2022 Orders Only [facility]oti [facility]eves [facility] Comment on above: Rectal prolapse (Sarah aye Dx) Start: 03-01-2022 Admission to [facility] Jada Vargas MD Work Phone: [facility] Start: 03-01-2022 End: 03-01-2022 Office outpatient visit 10 minutes Jada Vargas MD Work Phone: [facility] Comment on above: Rectal prolapse Start: 02-17-2022 End: 02-17-2022 ambulatory JADA RIVAS [facility] Start: 01-07-2022 Admission to [facility] Comment on above: Hx of colonic polyps (Primary Dx) Start: 01-07-2022 Documentation procedure America quiles MA [facility] Comment on above: Hx of colonic polyps (Primary Dx) Start: 12-30-2021 End: 12-30-2021 Office outpatient new 45 minutes Estrada Garcia MD Work Phone: [facility] Comment on above: Screening for lung c ancer (Primary Dx); Chronic obstructive pulmonary disease, unspecified COPD type (HCC) Start: 08-04-2021 End: 08-04-2021 Office outpatient new 30 minutes Chepe Yin CNP Work Phone: [facility] Comment on above: Dizzy (Primary Dx); Positional lightheadedness; Chronic rhinitis; Dysfunction of Eustachian tube, unspecified laterality Start: 07-29-2021 Transcribe Orders Lilliana dennison MA [facility] Comment on above: Rectal prolapse (Sarah aye Dx) Start: 07-22-2021 Transcribe Orders Alan Saba MD Work Phone: [facility] Comment on above: Dizzy (Primary Dx) Start: 04-23-2021 Patient encounter procedure Elana Westbrook PT Work Phone: [facility] Work Phone: Start: 2021 PTRECHADUL, Provider : Elana Westbrook, Status: Pen, Time: 4:00 PM February David OPERATION AGENT Work Phone: [facility] Work Phone: Start: 04-14-2021 Patient encounter procedure Anjana David OPERATION AGENT Work Phone: [facility] Work Phone: Start: 04-14-2021 [email or web address], Provider : Anjana Hernandez, Status: Pen, Time: 4:30 PM February David OPERATION AGENT Work Phone: [facility] Work Phone: Start: 04-14-2021 End: 04-14-2021 Emergency department patient visit Georgie Vázquez MD Work Phone: [facility] Emergency Department Start: 04-12-2021 Patient encounter procedure February David OPERATION AGENT Work Phone: [facility] Work Phone: Start: 04-09-2021 Patient encounter procedure Eli Alexander OPERATION AGENT Work Phone: [facility] Work Phone: Start: 03-31-2021 [email or web address], Provider : River Sweeney, Status: Pen, Time: 4:15 PM February David OPERATION AGENT Work Phone: [facility] Work Phone: Start: 03-29-2021 Patient encounter procedure February David OPERATION AGENT Work Phone: [facility] Work Phone: Start: 01-06-2021 End: 01-06-2021 Orders Only Sheri Bergeron Work Phone: [facility] Start: 11-24-2020 End: 11-24-2020 Patient encounter procedure Rusty Dozier Work Phone: [facility] Neurological Physicians Comment on above: Polyneuropathy Start: 11-09-2020 End: 11-09-2020 Subsequent hospital visit by physician Flori Rodrigues Work Phone: [facility] Ortho [facility] Comment on above: Pain Start: 11-09-2020 End: 11-09-2020 Office outpatient new 30 minutes Flori Risavenecia Rodrigues Work Phone: [facility] Comment on above: Primary osteoarthrit is of right knee (Primary Dx) Start: 11-02-2020 End: 11-02-2020 Emergency department patient visit Mars Christiansen Work Phone: [facility] Emergency Department Comment on above: Right knee pain, uns pecified chronicity (Primary Dx) Start: 09-15-2020 End: 09-15-2020 Subsequent hospital visit by physician Rivas Jules Work Phone: [facility] Comment on above: Pain Start: 09-15-2020 End: 09-15-2020 Office outpatient new 30 minutes Jonathan Rutherford Work Phone: [facility] Comment on above: Chronic right should er pain Start: 05-15-2020 End: 05-15-2020 Subsequent hospital visit by physician Elana Pena Work Phone: [facility] Comment on above: Claudication of lowe r extremity (HCC) Start: 05-07-2019 End: 05-07-2019 Emergency department patient visit Jose Alexandro Long Work Phone: [facility] Emergency Department Comment on above: Right leg pain (Prim samantha Dx); Chronic pain syndrome; Bursitis, unspecified site Start: 05-07-2019 End: 05-07-2019 Subsequent hospital visit by physician Whitley Martinez Work Phone: [facility] Comment on above: Abnormal electrocard iogram ; Cardiomyopathy, unspecified type (HCC); Hypertension, unspecified type Start: 04-10-2019 End: 04-10-2019 Patient encounter procedure Rusty Dozier Work Phone: [facility] MRI Comment on above: Right hip pain Start: 04-05-2019 End: 04-05-2019 Office outpatient new 45 minutes Oscar Vinson Work Phone: [facility] Comment on above: Coronary artery dise ase, angina presence unspecified, unspecified vessel or lesion type, unspecified whether [place] or transplanted heart; Cardiomyopathy, unspecified type (HCC); Sleep apnea, unspecified type; Chronic obstructive pulmonary disease, unspecified COPD type (HCC); Hypertension, unspecified type; Abnormal electrocardiogram ; Chest pain, unspecified type; 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HCC) Start: 02-13-2019 Patient encounter procedure Facility:[id number] Start: 01-23-2019 Patient encounter procedure Facility:[id number] Start: 01-14-2019 Patient encounter procedure Facility:[id number] Start: 11-29-2018 End: 12-01-2018 Evaluation and management of inpatient Tom Nieves [facility] Start: 10-10-2018 Patient encounter procedure Jonathan Rutherford [facility] Start: 09-17-2018 Patient encounter procedure Oscar Vinson [facility] Start: 07-11-2018 End: 07-11-2018 Patient encounter procedure Tyshawn Santos [facility] Start: 07-02-2018 End: 07-02-2018 Patient encounter BETY MAE [facility] Start: 07-02-2018 Patient encounter procedure Bety Hernandez [facility] Start: 07-02-2018 End: 07-02-2018 Patient encounter Jono Cali Sernaada Work Phone: [facility] Start: 06-22-2018 Patient encounter procedure Kailee Louis Facility:[facility] Start: 06-20-2018 End: 06-22-2018 Patient encounter procedure Tom Nieves Facility:[facility] Start: 05-28-2018 Patient encounter procedure Vaibhav Naranjo Facility:[facility] Start: 05-18-2018 Patient encounter procedure Vaibhav Naranjo Facility:[facility] Start: 02-05-2018 Patient encounter procedure Jono C Vadada Facility:[facility] Start: 02-05-2018 End: 02-05-2018 Ambulatory Jono Hoodra P Vadada Work Phone: [facility] Start: 01-29-2018 End: 01-30-2018 Patient encounter procedure Jossie Alcazar Facility:[facility] Start: 01-12-2018 End: 01-12-2018 [facility] Start: 01-12-2018 End: 01-12-2018 Ambulatory Bety Hernandez Work Phone: [facility] Start: 11-02-2017 End: 11-02-2017 Ambulatory ELANA PENA Facility:[facility] Start: 09-15-2017 End: 09-15-2017 Ambulatory Elana Pena Work Phone: [facility] Start: 08-16-2017 End: 08-16-2017 Ambulatory Bety Hernandez Work Phone: [facility] Start: 07-05-2017 End: 07-05-2017 Ambulatory Bety Hernandez Work Phone: [facility] Start: 07-04-2017 Patient encounter Vaibhav Naranjo Work Phone: [facility] Start: 08-30-2016 End: 08-30-2016 Ambulatory Brittany Rushing Work Phone: [facility] Start: 08-24-2016 End: 08-24-2016 Telephone encounter Feglo Damari Сергей Work Phone: [facility] Comment on above: Results Procedures Date Procedure Procedure Detail Performing Clinician Start: 06-26-[address] e fraction Dr. Jennifer Gordon MD Work Phone: Start: 06-26-2025 Total iron binding c apacity measurement Dr. Jennifer Gordon MD Work Phone: Start: 06-26-2025 Vitamin D, 25-hydrox y measurement Dr. Jennifer Gordon MD Work Phone: Comment on above: Vitamin D StatusDefi ciency: <20 ng/mL (50nmol/L)Insufficiency: 20-30 ng/mL (50-75 nmol/L)Sufficiency: 30-100 ng/mL (75-250 nmol/L)Toxicity: >100 ng/mL (>250 nmol/L) Start: 05-07-2025 US scan of thyroid Dr. Jennifer Gordon MD Work Phone: Start: 04-30-2025 Ecg routine ecg w/le ast 12 lds w/i&r Cb Boudreaux MD Work Phone: Start: 04-17-[address] Jennifer Gordon MD Work Phone: Start: 2025 Urnls dip stick/tabl et reagent auto microscopy Dr. Jennifer Gordon MD Work Phone: Start: 02-27-2025 X-ray of lumbosacral spine Dr. Jennifer Gordon MD Work Phone: Start: 02-25-2025 MRI of joint of lowe r extremity Dr. Jennifer Gordon MD Work Phone: Start: 02-18-2025 Electrocardiogram Daya Alcazar MD Work Phone: Start: 02-18-2025 Basic metabolic pane l calcium total Jossie Alcazar MD Work Phone: Start: 02-18-2025 Glucose measurement [facility] Work Phone: Start: 02-17-2025 Glucose measurement [facility] Work Phone: Start: 02-17-2025 Glucose measurement [facility] Work Phone: Start: 02-17-2025 Basic metabolic pane l calcium total Olga Russell MD Work Phone: Start: 02-17-2025 Glucose measurement [facility] Work Phone: Start: 02-16-2025 Glucose measurement [facility] Work Phone: Start: 02-16-2025 Glucose measurement [facility] Work Phone: Start: 02-16-2025 Glucose measurement [facility] Work Phone: Start: 02-16-2025 Radiologic exam ches t single view Olga Russell MD Work Phone: Start: 02-16-2025 Natriuretic peptide Afia Russell MD Work Phone: Start: 02-16-2025 Ecg routine ecg w/le ast 12 lds w/i&r Astrid S Sanders DO Work Phone: Start: 02-16-2025 Glucose measurement Gen jonatan [facility] Work Phone: Start: 02-16-2025 Basic metabolic pane l calcium total Olga Russell MD Work Phone: Start: 02-15-2025 Iadna-dna/rna gi pth gn multiplex probe tq 6-11 Olga Russell MD Work Phone: Start: 02-15-2025 Basic metabolic pane l calcium total Olga Russell MD Work Phone: Start: 02-15-2025 End: 02-15-2025 Glucose measurement Generic [facility] Work Phone: Start: 02-14-2025 End: 02-14-2025 Electrocardiogram Generic [facility] Work Phone: Start: 02-14-2025 Basic metabolic pane l calcium total Susan Thakur MD Work Phone: Start: 02-14-2025 Iadna s aureus methi cillin resist amp probe tq Andree Fraser RPh,PharmD Start: 02-13-2025 Assay of troponin quantitative Susan Thakur MD Work Phone: Start: 02-13-2025 Culture bacterial quanttative colony count urine Astrid S Sanders DO Work Phone: Start: 02-13-2025 Ecg routine ecg w/le ast 12 lds w/i&r Astrid S Sanders DO Work Phone: Start: 02-13-2025 Assay of troponin quantitative Astrid S Sanders DO Work Phone: Start: 02-13-2025 Culture bacterial bl ood aerobic w/id isolates Astrid S Sanders DO Work Phone: Start: 02-13-2025 Ct angiography chest w/contrast/noncontrast Astrid Sanders DO Work Phone: Start: 02-13-2025 OBTAIN VENOUS BLOOD GASES AND PERFORM Astrid Herman Sanders DO Work Phone: Start: 02-13-2025 Gases blood ph direc t marivel xcpt pulse oximitry Astrid Sanders DO Work Phone: Start: 02-13-2025 Radiologic exam ches t single view Astrid Sanders DO Work Phone: Start: 02-13-2025 Influenza virus A an d B RNA and SARS-CoV-2 (COVID-19) N gene panel - Respiratory specimen by CATRINA with probe detection Astrid Husseinner DO Work Phone: Start: 02-13-2025 Basic metabolic pane l calcium total Astrid Husseinner DO Work Phone: Start: 02-13-2025 GOODEN TOP Astrid Herman Sanders DO Work Phone: Start: 02-13-2025 LAVENDER TOP Astrid Herman Sanders DO Work Phone: Start: 02-13-2025 LIGHT BLUE TOP Astrid Herman Sanders DO Work Phone: Start: 02-13-2025 MINT GREEN TOP Astrid Husseinner DO Work Phone: Start: 02-13-2025 RAINBOW DRAW Astrid Herman Sanders DO Work Phone: Start: 02-13-2025 Ecg routine ecg w/le ast 12 lds w/i&r Astrid Husseinner DO Work Phone: Start: 02-03-2025 MRI of cervical spine Krzysztof Gordon MD Work Phone: Start: 01-21-2025 Plain X-ray of shoulder Dr. Jennifer Gordon MD Work Phone: Start: 01-13-2025 MRI of lumbar spine Dr. Jennifer Gordon MD Work Phone: Start: 01-06-2025 X-ray of cervical spine Dr. Jennifer Gordon MD Work Phone: Start: 09-23-2024 Echo tthrc r-t 2d w/ wom-mode compl spec&colr d Chanel Larson MD Work Phone: Start: 09-23-2024 Comprehensive metabo lic panel Chanel Larson MD Work Phone: Start: 09-22-2024 Electrocardiogram Gener ic [facility] Work Phone: Start: 09-22-2024 Assay of troponin quantitative Norman Mejía CNP Work Phone: Start: 09-22-2024 Basic metabolic pane l calcium total Nabila Chavez MD Work Phone: Start: 09-22-2024 End: 09-22-2024 Iaad ia mult step method nos each organism Nabila Chavez MD Work Phone: Start: 09-21-2024 Antibody mycoplsm Nabila Chavez MD Work Phone: Start: 09-21-2024 Culture bacterial bl ood aerobic w/id isolates Nabila Chavez MD Work Phone: Start: 09-21-2024 Procalcitonin (pct) Beti Chavez MD Work Phone: Start: 09-21-2024 Radiologic exam ches t single view Sally Talbot MD Work Phone: Start: 09-21-2024 Gases blood ph direc t marivel xcpt pulse oximitry Sally Talbot MD Work Phone: Start: 09-21-2024 Comprehensive metabo lic panel Sally Talbot MD Work Phone: Start: 09-21-2024 GOODEN TOP Sally Talbot MD Work Phone: Start: 09-21-2024 LAVENDER TOP Sally Talbot MD Work Phone: Start: 09-21-2024 LIGHT BLUE TOP Sally Talbot MD Work Phone: Start: 09-21-2024 MINT GREEN TOP Sally Talbot MD Work Phone: Start: 09-21-2024 RAINBOW DRAW Sally Talbot MD Work Phone: Start: 09-21-2024 OBTAIN ARTERIAL BLOO D GASES AND PERFORM Sally Talbot MD Work Phone: Start: 09-21-2024 Ecg routine ecg w/le ast 12 lds w/i&r Sally Talbot MD Work Phone: Start: 09-18-2024 Ecg routine ecg w/le ast 12 lds w/i&r Cb Boudreaux MD Work Phone: Start: 09-03-2024 Basic metabolic pane l calcium total Nabila Lama MD Work Phone: Start: 09-02-2024 Electrocardiogram Gener ic [facility] Work Phone: Start: 09-02-2024 Assay of troponin quantitative Thee Salmeron MD Work Phone: Start: 09-02-2024 Urnls dip stick/tabl et reagent auto microscopy Thee Salmeron MD Work Phone: Start: 09-02-2024 Gases blood ph direc t marivel xcpt pulse oximitry Thee Salmeron MD Work Phone: Start: 09-02-2024 Dup-scan xtr veins unilateral/limited study Nabila Lama MD Work Phone: Start: 09-02-2024 Radiologic examinati on knee 1/2 views Thee Salmeron MD Work Phone: Start: 09-02-2024 End: 09-02-2024 OBTAIN ARTERIAL BLOOD GASES AND PERFORM Thee Salmeron MD Work Phone: Start: 09-02-2024 Radiologic exam ches t single view Thee Salmeron MD Work Phone: Start: 09-02-2024 Ecg routine ecg w/le ast 12 lds w/i&r Thee Salmeron MD Work Phone: Start: 09-02-2024 Gases blood ph direc t marivel xcpt pulse oximitry Thee Salmeron MD Work Phone: Start: 09-02-2024 Basic metabolic pane l calcium total Thee Salmeron MD Work Phone: Start: 09-02-2024 Culture bacterial bl ood aerobic w/id isolates Thee Salmeron MD Work Phone: Start: 09-02-2024 Influenza virus A an d B RNA and SARS-CoV-2 (COVID-19) N gene panel - Respiratory specimen by CATRINA with probe detection Thee Salmeron MD Work Phone: Start: 09-02-2024 OBTAIN VENOUS BLOOD GASES AND PERFORM Thee Salmeron MD Work Phone: Start: 01-03-2024 CT of abdomen and pe lvis without contrast Dr. Jennifer Gordon Work Phone: Start: 10-16-2023 Injection single ten don origin/insertion Rivas Jules MD Work Phone: Start: 07-03-2023 Screening mammography D falguni Gordon Work Phone: Start: 07-03-[address] Jennifer Gordon Work Phone: Start: 06-01-2023 Radionuclide imaging of perfusion of myocardium under exercise stress Dr. Rusty Dozier Work Phone: Start: 02-14-2023 Acylcarnitine panel - Serum or Plasma Suzan Gordon MD Work Phone: Start: 02-13-2023 ACYLCARNITINES, QUANTITATIVE, BLOOD SPOT FILTER PAPER Shanon Salinas MD Work Phone: Start: 12-28-2022 MRI of cervical spine N P-C Jonathan Rutherford RECEPTION CENTRE MANAGER Work Phone: Start: 08-08-2022 Microalbumin [Mass/v olume] in Urine by Test strip Tawanna Luci CHATMANN Start: 06-29-2022 Glucose measurement [facility] Work Phone: Start: 06-29-2022 End: 06-29-2022 Renal function panel Sheri Hale MD Work Phone: Start: 06-28-2022 Glucose measurement [facility] Work Phone: Start: 06-28-2022 Glucose measurement [facility] Work Phone: Start: 06-28-2022 Glucose measurement [facility] Work Phone: Start: 06-28-2022 Glucose measurement [facility] Work Phone: Start: 06-28-2022 Comprehensive metabo lic panel Sheri Hale MD Work Phone: Start: 06-28-2022 Hepatic function panel Leodan Geronimo MD Work Phone: Start: 06-28-2022 Tissue transglutamin ase IgA measurement Nessa Jay STEAM TENDER Work Phone: Start: 06-27-2022 Glucose measurement [facility] Work Phone: Start: 06-27-2022 Glucose measurement [facility] Work Phone: Start: 06-27-2022 Glucose measurement [facility] Work Phone: Start: 06-27-2022 Renal function panel John Hale MD Work Phone: Start: 06-26-2022 [facility] Start: 06-26-2022 Glucose measurement [facility] Work Phone: Start: 06-26-2022 Glucose measurement [facility] Work Phone: Start: 06-26-2022 [facility]: Start: 06-26-2022 Renal function panel John Hale MD Work Phone: Start: 06-25-2022 Glucose measurement [facility] Work Phone: Start: 06-25-2022 Glucose measurement [facility] Work Phone: Start: 06-25-2022 SARS-CoV-2 (COVID-19 ) RNA [Presence] in Respiratory specimen by CATRINA with probe detection Sheri Hale MD Work Phone: Start: 06-25-2022 Radiologic exam ches t single view Sheri Hale MD Work Phone: Start: 06-25-2022 Glucose measurement [facility] Work Phone: Start: 06-25-2022 Glucose measurement [facility] Work Phone: Start: 06-25-2022 Renal function panel John Hale MD Work Phone: Start: 06-24-2022 Glucose measurement [facility] Work Phone: Start: 06-24-2022 Glucose measurement [facility] Work Phone: Start: 06-24-2022 Glucose measurement [facility] Work Phone: Start: 08-19-2022 Assay of troponin quantitative Sheri Hale MD Work Phone: Start: 06-24-2022 Radiologic exam ches t single view Sheri Hale MD Work Phone: Start: 06-24-2022 Ecg routine ecg w/le ast 12 lds trcg only w/o i&r Sheri Hale MD Work Phone: Start: 06-24-2022 Renal function panel Ka sherice Hale MD Work Phone: Start: 06-24-2022 Glucose measurement [facility] Work Phone: Start: 06-23-2022 Glucose measurement [facility] Work Phone: Start: 06-23-2022 Glucose measurement [facility] Work Phone: Start: 06-23-2022 Level iv surg pathol ogy gross&microscopic exam Tyshawn Santos MD Work Phone: Start: 06-23-2022 Sigmoidoscopy Tyshawn Santos MD Work Phone: Start: 06-23-2022 End: 06-23-2022 SIGMOIDOSCOPY FLEXIBLE Tyshawn Santos MD Work Phone: Start: 06-23-2022 Glucose measurement [facility] Work Phone: Start: 06-23-2022 Glucose measurement [facility] Work Phone: Start: 06-23-2022 Basic metabolic pane l calcium total Kailee Garvin Missy STEAM TENDER Work Phone: Start: 06-22-2022 Glucose measurement [facility] Work Phone: Start: 06-22-2022 Glucose measurement [facility] Work Phone: Start: 06-22-2022 Glucose measurement [facility] Work Phone: Start: 06-22-2022 Glucose measurement [facility] Work Phone: Start: 06-21-2022 Glucose measurement [facility] Work Phone: Start: 06-21-2022 Glucose measurement [facility] Work Phone: Start: 06-21-2022 Assay of lactate Jaiden Bagley MD Work Phone: Start: 06-21-2022 End: 06-21-2022 Culture bacterial blood aerobic w/id isolates Jaiden Bagley MD Work Phone: Start: 06-21-2022 Ct abdomen & pelvis w/o contrast material Jaiden Bagley MD Work Phone: Start: 06-21-2022 Radiologic exam ches t single view Jaiden Bagley MD Work Phone: Start: 06-21-2022 End: 06-21-2022 Comprehensive metabolic panel Jaiden Bagley MD Work Phone: Start: 04-04-2022 Glucose measurement William Vargas MD Work Phone: Start: 04-04-2022 Basic metabolic pane l calcium total Tatiana Nadine Butt PA-C Work Phone: Start: 04-03-2022 Glucose measurement William Vargas MD Work Phone: Start: 04-03-2022 Glucose measurement William Vargas MD Work Phone: Start: 04-03-2022 Glucose measurement William Vargas MD Work Phone: Start: 04-03-2022 Glucose measurement William Vargas MD Work Phone: Start: 04-03-2022 Basic metabolic pane l calcium total Tatiana Nadine Butt PA-C Work Phone: Start: 04-02-2022 Glucose measurement William Vargas MD Work Phone: Start: 04-02-2022 Glucose measurement William Vargas MD Work Phone: Start: 04-02-2022 Urnls dip stick/tabl et reagent auto microscopy Serina Meyers MD Work Phone: Start: 04-02-2022 End: 04-02-2022 Glucose measurement Jada Vargas MD Work Phone: Start: 04-02-2022 Basic metabolic pane l calcium total Tatiana Nadine Butt PA-C Work Phone: Start: 04-01-2022 Glucose measurement William Vargas MD Work Phone: Start: 04-01-2022 Glucose measurement William Vargas MD Work Phone: Start: 04-01-2022 Glucose measurement William Vargas MD Work Phone: Start: 04-01-2022 Glucose measurement William Vargas MD Work Phone: Start: 04-01-2022 Basic metabolic pane l calcium total Tatiana Nadine Butt PA-C Work Phone: Start: 03-31-2022 Glucose measurement William Vargas MD Work Phone: Start: 03-31-2022 Glucose measurement William Vargas MD Work Phone: Start: 03-31-2022 End: 03-31-2022 Ecg routine ecg w/least 12 lds trcg only w/o i&r Grant Archibald DO Work Phone: Start: 03-31-2022 Glucose measurement William Vargas MD Work Phone: Start: 03-31-2022 Radiologic exam ches t 2 views Tatiana Nadine Butt PA-C Work Phone: Start: 03-31-2022 Glucose measurement William Vargas MD Work Phone: Start: 03-31-2022 Basic metabolic pane l calcium total Tatiana Mckeongabriele SANCHEZ-C Work Phone: Start: 03-31-2022 Adult depression scr eening assessment Estrada Garcia MD Work Phone: Start: 03-30-2022 Assay of troponin quantitative Serina Meyers MD Work Phone: Start: 03-30-2022 Ecg routine ecg w/le ast 12 lds w/i&r Folder Hand Generic Start: 03-30-2022 Glucose measurement William Vargas MD Work Phone: Start: 03-30-2022 Glucose measurement William Vargas MD Work Phone: Start: 03-30-2022 End: 03-30-2022 ALTEMEIER PROCEDURE Jada Vargas MD Work Phone: Start: 03-30-2022 Blood typing serologic abo Tatiana Nadine SANCHEZ-John Work Phone: Start: 03-30-2022 Thromboplastin time partial plasma/whole blood Jada Vargas MD Work Phone: Start: 03-30-2022 Glucose measurement William Vargas MD Work Phone: Start: 02-17-2022 Colonoscopy Jada diggs MD Work Phone: Start: 01-24-2022 Microalbumin [Mass/v olume] in Urine by Test strip Jada Vargas MD Work Phone: Start: 12-30-2021 6-minute walk test Hayden as Fina Garcia MD Work Phone: Start: 08-25-2021 Mammography Estrada levine MD Work Phone: Start: 08-16-2021 Mammography Jada sorto Start: 04-14-2021 Urnls dip stick/tabl et reagent auto microscopy Georgie Vázquez MD Work Phone: Start: 04-14-2021 Basic metabolic pane l calcium total Georgie Vázquez MD Work Phone: Start: 04-14-2021 GOODEN TOP Georgie chawla MD Work Phone: Start: 04-14-2021 LAVENDER TOP Georgie chawla MD Work Phone: Start: 04-14-2021 LIGHT BLUE TOP Georgie carey MD Work Phone: Start: 04-14-2021 LIGHT GREEN TOP Georgie Vázquez MD Work Phone: Start: 04-14-2021 MINT GREEN TOP Georgie carey MD Work Phone: Start: 04-14-2021 RAINBOW DRAW Georgie chawla MD Work Phone: Start: 01-14-2021 Microalbumin [Mass/v olume] in Urine by Test strip Georgie Vázquez MD Work Phone: Start: 11-09-2020 Arthrocentesis Flori Stoner Work Phone: Start: 11-09-2020 Radiologic exam knee complete 4/more views Flori Rodrigues Work Phone: Start: 11-02-2020 Dup-scan xtr veins unilateral/limited study Fay Sanchez Work Phone: Start: 11-02-2020 Radiologic examinati on knee 1/2 views Fay Sanchez Work Phone: Start: 09-15-2020 Arthrocentesis Rivas Jules Work Phone: Start: 09-15-2020 Radex shoulder 1 view Damari Jules Work Phone: Start: 05-15-2020 Non-invas physiologi c std extremity art 2 level External Transcribed Start: 05-07-2019 LAVENDER TOP Jose Long Work Phone: Start: 05-07-2019 LIGHT BLUE TOP Jose Long Work Phone: Start: 05-07-2019 MINT GREEN TOP Jose Long Work Phone: Start: 05-07-2019 RAINBOW DRAW Jose sharma Revammy Work Phone: Start: 05-07-2019 Echocardiography Whitley Martinez Work Phone: Start: 04-05-2019 12 lead ECG Whitley shay Work Phone: Start: 11-27-2018 End: 11-27-2018 Microscopic examination of blood, culture Oscar Vinson Comment on above: Performed By: #### C BCWOD, PT, PTT, DDIMR, EDCTNI, NTPROBNP, CHEM8, LIPASE, CMETADD #### Unless otherwise noted, all testing performed by [facility] [address] [place], [place] [address] CLIA: [id number] Construction Plumber: Maurice Coello M.D. Start: 07-02-2018 End: 07-02-2018 25 hydroxy includes fractions if performed Jononakul العراقي Vadada Work Phone: Start: 07-02-2018 End: 07-02-2018 Albumin serum plasma/whole blood Jononakul Hoodra P Vadada Work Phone: Start: 07-02-2018 End: 07-02-2018 Assay of phosphorus inorganic Jononakul Hoodra P Vadada Work Phone: Start: 07-02-2018 End: 07-02-2018 Calcium total Jononakul Hoodra P Vadada Work Phone: Start: 07-02-2018 End: 07-02-2018 Electrolyte panel Jononakul Hoodra P Vadada Work Phone: Start: 07-02-2018 End: 07-02-2018 Hemoglobin and Hematocrit panel - Blood Jono Daniel Work Phone: Start: 07-02-2018 End: 07-02-2018 [facility] - BUN AND CREATININE Jono Daniel Work Phone: Start: 07-02-2018 End: 07-02-2018 [facility] - PARATHYROID HORMONE Jono Daniel Work Phone: Start: 07-02-2018 End: 07-02-2018 Assay of thyroid stimulating hormone tsh Bety Hernandez Work Phone: Start: 07-02-2018 End: 07-02-2018 [facility] - PROTEIN PANEL, URINE Jono Daniel Work Phone: Start: 01-29-2018 Microscopic examinat ion of blood, culture Oscar Vinson Comment on above: Performed By: #### C BCWOD, PT, PTT, DDIMR, EDCTNI, NTPROBNP, CHEM8, LIPASE, CMETADD #### Unless otherwise noted, all testing performed by [facility] [address] [place] [id number] CLIA: [id number] Construction Plumber: Maurice Coello M.D. Start: 07-05-2016 Arpit Cobb my Plan of Treatment Date Care Activity Detail Author Start: 2033 RSV Immunization (1 - 1-dose 75+ series) RSV Immunization (1 - 1-dose 75+ series) [facility] Start: 02-18-2032 Screening for malignant neoplasm [facility] Start: 06-23-2027 Screening for malignant neoplasm of colon Flexible sigmoidoscopy [facility] Start: 02-17-2027 Screening for malignant neoplasm of colon [facility] Start: 02-18-2026 Depression screening using PHQ-9 (Patient Health Questionnaire 9) score Depression Screening/Follow-Up (PHQ-2/9) [facility] Start: 02-18-2026 eGFR - Kidney Disease eGFR - Kidney Disease [facility] Start: 02-13-2026 Screening for malignant neoplasm of lung Low-dose CT Lung Cancer Screen [facility] Start: 09-23-2025 Urine screening for protein eGFR - Kidney Disease [facility] Start: 09-03-2025 Urine screening for protein eGFR - Kidney Disease [facility] Start: 09-02-2025 Urine screening for protein eGFR - Kidney Disease [facility] Start: 07-07-2025 Influenza vaccination Influenza Vaccine (#1) [facility] Start: 07-04-2025 Polysomnography [facility] Start: 06-11-2025 End: 06-11-2025 Patient encounter procedure 06/11/2025 3:15 PM EDT Appointment [facility] [address] 4[address] [place] [address] [place] [address] Herve Hyman MD [address] [place] [address] Discharge Disposition: Home [facility] Start: 04-30-2025 End: 04-30-2025 Patient encounter procedure 04/30/2025 10:20 AM EDT Office Visit [facility] [address] [facility] [address] [place] [address] Cb Boudreaux MD [address] [place] [address] [facility] Start: 01-15-2025 End: 01-15-2025 Patient encounter procedure 01/15/2025 2:00 PM EDT Office Visit [facility] [address] [place] [address] Cb Boudreaux MD [facility] [place] [address] [facility] Start: 01-06-2025 Patient referral [facility] Work Phone: Start: 01-01-2025 [facility] Start: 11-21-2024 End: 11-21-2024 Patient encounter procedure 11/21/2024 8:00 AM EST Appointment [facility] [address] [place] [address] Cb Boudreaux MD [address] [place] [address] [facility] MRI Start: 09-18-2024 End: 09-18-2024 Patient encounter procedure 09/18/2024 1:00 PM EST Office Visit [facility] [address] [facility], 3rd floor [place] [phone] System, Provider Not In Cb Boudreaux MD [address] [place] [address] [facility] Start: 07-07-2024 COVID-19 Vaccine ( season) COVID-19 Vaccine ( season) [facility] Start: 07-07-2024 COVID-19 Vaccine ( season) COVID-19 Vaccine ( season) [facility] Start: 07-07-2024 Influenza vaccination [facility] Start: 07-03-2024 Screening for malignant neoplasm of lung Low-dose CT Lung Cancer Screen [facility] Start: 06-03-2024 End: 06-03-2024 Patient encounter procedure 06/03/2024 2:00 PM EDT Appointment [facility] [address] [facility] 4th [place] [address] [place] [address] Suzan Gordon MD [address] [place] [address] Discharge Disposition: Home [facility] Start: 02-29-2024 Hemoglobin A1c/Hemoglobin.total in Blood [facility] Start: 02-29-2024 [facility] Start: 02-12-2024 End: 02-12-2024 Patient encounter procedure [facility] Start: 02-07-2024 Patient referral [facility] Work Phone: Start: 11-28-2023 [place] [employer] [facility] Start: 11-28-2023 Serum immunofixation [facility] Start: 11-28-2023 Urine immunofixation [facility] Start: 11-07-2023 End: 11-07-2023 Patient encounter procedure 11/07/2023 2:45 PM EST Office Visit [facility] Orthopedic and Sports Medicine [address] [place] [address] [place] [address] Rivas Jules MD [address] [place] [address] [phone] [facility] Orthopedic [facility] Sports Medicine Start: 10-16-2023 End: 10-16-2023 Patient encounter procedure 10/16/2023 2:00 PM EST Office Visit [facility] Orthopedic [facility] Medicine [address] [place] [address] [place] [address] Rivas Jules MD [address] [place] [address] [phone] [facility] Orthopedic [facility] Sports [facility] Start: 09-24-2023 Screening for malignant neoplasm of lung Low-dose CT Lung Cancer Screen [facility] Start: 08-14-2023 End: 08-14-2023 Patient encounter procedure 08/14/2023 Appointment Genetics Suzan Gordon MD [address] [place] [id number] [facility] [place] Start: 08-08-2023 Urine screening for protein Urine Microalbumin [facility] Start: 07-07-2023 COVID-19 Vaccine ( season) COVID-19 Vaccine ( season) [facility] Start: 07-07-2023 Influenza vaccination [facility] Start: 07-03-2023 Elastase, pancreatic (el-1), fecal; quantitative [facility] Start: 06-05-2023 Patient referral [facility] Work Phone: Start: 06-05-2023 Celiac disease screen [facility] Start: 2023 Fall risk assessment Falls Risk Assessment [facility] Start: 2023 Pneumococcal Vaccine: 65+ Years (1 of 1 - PCV) Pneumococcal Vaccine: 65+ Years (1 of 1 - PCV) [facility] Start: 03-31-2023 Depression screening using PHQ-9 (Patient Health Questionnaire 9) score [facility] Start: 03-24-2023 Hemoglobin A1c measurement A1C [facility] Start: 03-08-2023 Patient referral [facility] Work Phone: Start: 02-13-2023 End: 02-13-2023 Patient encounter procedure 02/13/2023 Appointment Genetics Suzan Gordon MD [address] [place] [phone] [facility] [place] Start: 01-30-2023 Pneumococcal Vaccine: Ped or At-Risk (2 of 4 - PPSV23) Pneumococcal Vaccine: Ped or At-Risk (2 of 4 - PPSV23) [facility] Start: 01-26-2023 End: 01-26-2023 Patient encounter procedure 01/26/2023 Appointment Radiology Estrada Garcia MD [address] [place] [address] [place] [id number] [facility] CT Scan Start: 01-24-2023 Microalbumin measurement, urine, quantitative Urine Microalbumin [facility] Start: 01-24-2023 Screening for malignant neoplasm of lung Low-dose CT Lung Cancer Screen [facility] Start: 01-24-2023 Urine screening for protein Urine Microalbumin [facility] Start: 01-05-2023 End: 07-08-2023 Low dose computed tomography of thorax CT Lung Cancer Screening Imaging Routine Screening for lung cancer Expected: 01/05/2023, Expires: 07/08/2023 [facility] Comment on above: Expected: 01/05/2023, Expires: Start: 12-01-2022 Patient referral [facility] Work Phone: Start: 10-06-2022 [place] [employer] [facility] Work Phone: Start: 10-06-2022 Thiamine measurement [facility] Work Phone: Start: 08-31-2022 End: 08-31-2022 Patient encounter procedure 08/31/2022 Office Visit Pulmonology Estrada Garcia MD [facility] Vini Fraser [address] [address] [facility]monary [facility] Start: 08-25-2022 Screening for malignant neoplasm of breast Mammogram [facility] Start: 08-16-2022 Mammography MAMMOGRAM [facility] Start: 08-16-2022 Screening for malignant neoplasm of breast Mammogram [facility] Start: 08-15-2022 End: 08-15-2022 Admission to same day surgery center 08/15/2022 Surgery Tyshawn Santos MD [address] [place] [address] ESOPHAGOGASTRODUODENOSCOPY [facility] Endoscopy Comment on above: ESOPHAGOGASTRODUODENOSCOPY Start: 08-15-2022 End: 08-15-2022 Esophagogastroduodenoscopy ESOPHAGOGASTRODUODENOSCOPY Pain of upper abdomen Nausea 08/15/2022 11:55 AM EDT [facility] Start: 08-15-2022 Subsequent hospital visit by physician 08/15/2022 Hospital Encounter Tyshawn Santos MD [address] [place] [address] [facility] Endoscopy Start: 08-02-2022 End: 08-02-2022 Patient encounter procedure 08/02/2022 Office Visit Cardiology Roz Fontenot MD [facility] [place] [address] [facility] Start: 07-19-2022 End: 07-19-2022 Patient encounter procedure 07/19/2022 Office Visit Gastroenterology Debra Adamson, RUIZ [address] [place] [address] [facility] Gastroenterology Start: 07-08-2022 End: 07-08-2022 Patient encounter procedure 07/08/2022 Office Visit Pulmonology Estrada Garcia MD [address] [facility] [address] [place] [address] [facility] Start: 07-07-2022 Influenza vaccination [facility] Start: 07-04-2022 End: 07-04-2022 Patient encounter procedure 07/04/2022 Office Visit Cardiology Day, Roz Jacob MD [facility] [place] [address] [facility] Start: 03-30-2022 End: 03-30-2022 Admission to same day surgery center 03/30/2022 Surgery Jada Vargas MD [address] [facility] Comment on above: [facility] Start: 03-30-2022 End: 03-30-2022 [facility] PROCEDURE [facility] PROCEDURE Rectal prolapse 03/30/2022 11:[address] [facility] Start: 03-30-2022 End: 03-30-2022 Admission to same day surgery center 03/30/2022 Surgery Jada Vargas MD [address] [facility] Comment on above: [facility] PROC[facility] Start: 03-30-2022 End: 03-30-2022 [facility]EIER PROCEDURE [facility] PROCEDURE Rectal prolapse 03/30/2022 9:[address] [facility] Start: 03-30-2022 Subsequent hospital visit by physician 03/30/2022 Hospital Encounter Jada Vargas MD [address] [address] [facility] Start: 03-29-2022 End: 03-29-2022 Patient encounter procedure 03/29/2022 Office Visit Pulmonology Estrada Garcia MD [address] [place] [address] [facility] Start: 03-28-2022 End: 03-28-2022 Patient encounter procedure 03/28/2022 Appointment Cardiology Roz Fontenot MD [address] [place] [address] [facility] Start: 03-28-2022 End: 03-28-2022 Patient encounter procedure 03/28/2022 Appointment Cardiology Roz Fontenot MD [address] [facility] [place] [address] [facility] Start: 03-22-2022 End: 03-22-2022 Patient encounter procedure 03/22/2022 Office Visit Pre-Admission Testing [facility] Preadmission Testing Start: 03-04-2022 End: 03-04-2022 Patient encounter procedure 03/04/2022 Appointment Cardiology Rusty Dozier MD [address] [place] [address] [facility] Start: 02-25-2022 COVID-19 Vaccine (3 - Booster for Lisa series) COVID-19 Vaccine (3 - Booster for Lsia series) [facility] Start: 02-17-2022 Subsequent hospital visit by physician 02/17/2022 Hospital Encounter Jada Vargas MD 340 [facility] [address] [place] [id number] [facility] Start: 01-14-2022 Microalbumin measurement, urine, quantitative Urine Microalbumin [facility] Start: 01-10-2022 End: 01-10-2022 Patient encounter procedure 01/10/2022 Appointment Radiology Estrada Garcia MD [address] [place] [address] [facility] CT Scan Start: 10-08-2021 End: 10-08-2021 Patient encounter procedure 10/08/2021 Office Visit Otolaryngology Van BurenChepe ruffin CNP [address] [place] [address] [facility] Start: 08-16-2021 End: 08-16-2021 Patient encounter procedure 08/16/2021 Appointment Radiology Jonathan Rutherford, RUIZ [address] [place] [address] [facility] Mammography Start: 08-04-2021 End: 08-04-2021 Patient encounter procedure 08/04/2021 Office Visit Otolaryngology Van BurenChepe ruffin CNP [address] [facility] [address] [place] [address] [facility] Start: 08-03-2021 End: 08-03-2021 Patient encounter procedure 08/03/2021 Office Visit General Surgery Jada Vargas MD [address] [place] [address] [facility] Start: 08-02-2021 End: 08-02-2021 Patient encounter procedure 08/02/2021 Appointment Radiology Jonathan Rutherford, STEAM TENDER [address] [place] [address] [facility] Mammography Start: 07-07-2021 Influenza vaccination Sequential Influenza Vaccine (#1) [facility] Start: 06-08-2021 End: 06-08-2021 Patient encounter procedure 06/08/2021 Appointment Radiology [facility] Mammography Start: 04-26-2021 [email or web address], Provider: River Sweeney, Status: Pen, Time: 4:15 PM PTFUADULT4, Provider: River Sweeney, Status: Pen, Time: 4:15 PM [facility] Start: 04-23-2021 PTFUADULT4, Provider: Elana Westbrook, Status: Pen, Time: 3:45 PM PTFUADULT4, Provider: Elana Westbrook, Status: Pen, Time: 3:45 PM [facility]: Start: 04-21-2021 PTFUADULT4, Provider: Eli Alexander, Status: Pen, Time: 4:15 PM PTFUADULT4, Provider: Eli Alexander, Status: Pen, Time: 4:15 PM [facility]: Start: 2021 PTRECHADUL, Provider: Elana Westbrook, Status: Pen, Time: 4:00 PM PTRECHADUL, Provider: Elana Westbrook, Status: Pen, Time: 4:00 PM [facility]: Start: 04-15-2021 End: 04-14-2022 Basic metabolic 1998 panel - Serum or Plasma Chem 7 Lab Routine Expected: 04/15/2021, Expires: 04/14/2022 [facility] Comment on above: Expected: 04/15/2021, Expires: 2 Start: 04-15-2021 End: 04-14-2022 Creatine kinase [Enzymatic activity/volume] in Serum or Plasma CPK NO MB Lab Routine Expected: 04/15/2021, Expires: 04/14/2022 [facility] Comment on above: Expected: 04/15/2021, Expires: 2 Start: 04-14-2021 PTFUADULT4, Provider: DavidFebruary, Status: Pen, Time: 4:30 PM PTFUADULT4, Provider: DavidFebruary, Status: Pen, Time: 4:30 PM [facility]: Start: 04-12-2021 PTFUADULT4, Provider: DavidFebruary, Status: Pen, Time: 4:30 PM PTFUADULT4, Provider: DavidFebruary, Status: Pen, Time: 4:30 PM [facility] Work Phone: Start: 04-09-2021 PTFUADULT4, Provider: Eli Alexander, Status: Pen, Time: 4:15 PM PTFUADULT4, Provider: Eli Alexander, Status: Pen, Time: 4:15 PM [facility] Work Phone: Start: 11-24-2020 End: 11-24-2020 Procedure visit 11/24/2020 Procedure visit Neurology Rusty Dozier MD [address] [address] [phone] Eugenia Conte MD [address] [place] [address] [phone] [facility] Neurological [facility] Start: 10-12-2020 End: 10-12-2020 Procedure visit 10/12/2020 Procedure visit Neurology Eugenia Conte MD [address] [place] [address] [phone] [facility] Start: 07-07-2020 Influenza vaccination given Sequential Influenza Vacci ne (#1) [facility] Start: 07-07-2019 Influenza vaccination INFLUENZA VACCINE (Season Ended) [facility] Start: 07-07-2019 Influenza vaccination given [facility] Start: 04-19-2019 End: 04-19-2019 Appointment 04/19/2019 Appointment Cardiology Whitley Martinez MD [address] [place] [address] [phone] [facility] Start: 04-10-2019 End: 04-10-2019 Appointment 04/10/2019 Appointment Radiology Rusty Dozier MD [address] [place] [address] [phone] [facility] MRI Start: 01-30-2019 Pneumococcal Vaccine: Age 50+ (2 of 2 - PCV) Pneumococcal Vaccine: Age 50+ (2 of 2 - PCV) [facility] Start: 01-30-2019 Pneumococcal Vaccine: Age 65+ (2 - PCV) Pneumococcal Vaccine: Age 65+ (2 - PCV) [facility] Start: 01-30-2019 Pneumococcal Vaccine: Age 65+ (2 of 2 - PCV) Pneumococcal Vaccine: Age 65+ (2 of 2 - PCV) [facility] Start: 01-30-2019 Pneumococcal Vaccine: Ped or At-Risk (2 - PCV) Pneumococcal Vaccine: Ped or At-Risk (2 - PCV) [facility] Start: 01-30-2019 Pneumococcal Vaccine: Ped or At-Risk (2 of 4 - PCV13) Pneumococcal Vaccine: Ped or At-Risk (2 of 4 - PCV13) [facility] Start: 07-07-2018 Influenza vaccination SEQUENTIAL INFLUENZA VACCINE (#1) [facility] Start: 2018 HEPATITIS B VACCINES (1 of 3 - Risk 3-dose series) HEPATITIS B VACCINES (1 of 3 - Risk 3-dose series) [facility] Start: 2018 Respiratory Syncytial Virus Immunization: Risk, 60-74 Risk, or 75+ (1 - Risk 60-74 years 1-dose series) Respiratory Syncytial Virus Immunization: Risk, 60-74 Risk, or 75+ (1 - Risk 60-74 years 1-dose series) [facility] Start: 2018 RSV Immunization (1 - Risk 60-74 years 1-dose series) RSV Immunization (1 - Risk 60-74 years 1-dose series) [facility] Start: 10-04-2017 Ambulatory 10/04/2017 Office Visit Sports Medicine Vaibhav Naranjo MD [address] [address] [phone] [facility] [place] Start: 07-07-2017 Influenza vaccination SEQUENTIAL INFLUENZA VACCINE (#1) [facility] Work Phone: Start: 07-07-2017 SEQUENTIAL INFLUENZA VACCINE (#1) SEQUENTIAL INFLUENZA VACCINE (#1) [facility] Work Phone: Start: 07-05-2017 Protein mass conc Mammogram [facility] Start: 07-05-2017 Screening for malignant neoplasm of breast Mammogram [facility] Start: 07-05-2017 Screening mammography Mammogram [facility] Start: 07-04-2017 Ambulatory [facility] [place] Start: 2008 Administration of herpes zoster vaccine Zoster Vaccines (1 of 2) [facility] Start: 2008 Pneumococcal Vaccine: 50+ Years (1 of 1 - PCV) Pneumococcal Vaccine: 50+ Years (1 of 1 - PCV) [facility] Start: 2008 Protein mass conc COLON CANCER SCREENING DISCUSSION [facility] Start: 2008 Screening for malignant neoplasm of colon [facility] Start: 2008 Zoster vaccine hzv live for subcutaneous use ZOSTER (SHINGLES) VACCINE (1 of 2) [facility] Start: 2008 ZOSTER VACCINES (1 of 2) ZOSTER VACCINES (1 of 2) [facility] Start: 1998 Fasting lipid profile LIPID SCREENING [facility] Start: 1998 Protein mass conc MAMMOGRAM SCREENING DISCUSSION [facility] Start: 1979 Screening for malignant neoplasm of cervix PAP SMEAR DISCUSSION [facility] Start: 1977 Administration of herpes zoster vaccine Zoster Vaccines (1 of 2) [facility] Start: 1977 Shingles Vaccine (1 of 2) Shingles Vaccine (1 of 2) [facility] Start: 1977 Third diphtheria, tetanus and acellular pertussis (DTaP) vaccination TDAP (ADULT) [facility] Start: 1976 Hepatitis C antibody, confirmatory test Hepatitis C Screening [facility] Start: 1976 Hepatitis C screening Hepatitis C Screening [facility] Start: 1976 Tetanus vaccination TETANUS [facility] Start: 1974 COVID-19 Vaccine (1 of 2) COVID-19 Vaccine (1 of 2) [facility] Start: 1973 HIV screening HIV Screening [facility] Start: 1971 HIV screening HIV SCREENING DISCUSSION [facility] Start: 1971 Varicella Vaccine (1 of 2 - 13+ 2-dose series) Varicella Vaccine (1 of 2 - 13+ 2-dose series) [facility] Start: 1970 Adolescent depression screening assessment Depression Screening (PHQ9) [facility] Start: 1970 COVID-19 Vaccine (1) COVID-19 Vaccine (1) [facility] Start: 1970 Depression screening using PHQ-9 (Patient Health Questionnaire 9) score [facility] Start: 1968 Diabetic foot examination [facility] Start: 1968 Glaucoma screening [facility] Start: 1968 Ophthalmic examination and evaluation Ophthalmology Exam [facility] Start: 1968 Urine screening for protein Urine (micro)albumin/creatinine ratio - Kidney Disease [facility] Start: 1968 Urine, microalbumin URINE MICROALBUMIN [facility] Start: 1965 DTaP/Tdap/Td Vaccine (1 - Tdap) DTaP/Tdap/Td Vaccine (1 - Tdap) [facility] Start: 1965 DTaP/Tdap/Td VACCINES (1 - Tdap) DTaP/Tdap/Td VACCINES (1 - Tdap) [facility] Start: 1964 Pneumococcal vaccination [facility] Start: 1964 Pneumococcal Vaccine: 65+ Years (1 - PCV) Pneumococcal Vaccine: 65+ Years (1 - PCV) [facility] Start: 1964 Pneumococcal Vaccine: 65+ Years (1 of 2 - PCV) Pneumococcal Vaccine: 65+ Years (1 of 2 - PCV) [facility] Start: 1964 Pneumococcal Vaccine: Ped or At-Risk (1 of 4 - PCV13) Pneumococcal Vaccine: Ped or At-Risk (1 of 4 - PCV13) [facility] Start: 1961 History and physical examination, annual for health maintenance Wellness Visit [facility] Start: 1961 Medicare Wellness Visit Medicare Wellness Visit [facility] Start: 1959 MMR Vaccine (1 of 1 - Standard series) MMR Vaccine (1 of 1 - Standard series) [facility] Start: 1959 MMR VACCINES (1 of 1 - Standard series) MMR VACCINES (1 of 1 - Standard series) [facility] Start: 1959 VARICELLA VACCINES (1 of 2 - 2-dose childhood series) VARICELLA VACCINES (1 of 2 - 2-dose childhood series) [facility] Start: 1958 COVID-19 Vaccine (#1) COVID-19 Vaccine (#1) [facility] Start: 1958 Depression screening using PHQ-9 (Patient Health Questionnaire 9) score Depression Screening (PHQ9) [facility] Start: 1958 Hemoglobin A1c measurement A1C [facility] Start: 1958 Hepatitis C antibody, confirmatory test [facility] Start: 1958 Screening for malignant neoplasm of colon [facility] Start: 1958 Screening for malignant neoplasm of lung Low-dose CT Lung Cancer Screen [facility] Start: 1958 Screening for osteoporosis Dexa Scan [facility] Start: 1958 Thyrotropin Qn TSH [facility] Start: 1958 Colonoscopy COLONOSCOPY [facility] Work Phone: Start: 1958 Cytopathology procedure, preparation of smear, genital source PAP SMEAR [facility] Work Phone: Start: 1958 HEPATITIS C SCREENING HEPATITIS C SCREENING [facility] Work Phone: Start: 1958 Screening colonoscopy COLONOSCOPY [facility] Work Phone: Start: 1958 End: 1958 Screening for malignant neoplasm of cervix PAP SMEAR [facility] Start: 1958 TETANUS EVERY 10 YR TETANUS EVERY 10 YR [facility] Work Phone: Start: 1958 End: 1958 Tetanus vaccination [facility] End: 03-08-2023 12 lead ECG ECG 12 Lead ECG Routine Rectal prolapse Preoperative testing 1 Occurrences starting 03/08/2022 until 03/08/2023 [facility] Comment on above: 1 Occurrences starting 03/08/2022 until 03/08/2023 End: 09-16-2028 12 lead ECG ECG 12 Lead ECG Routine NSVT (nonsustained ventricular tachycardia) (HCC) 15 Occurrences starting 09/16/2024 until 09/16/2028 [facility] Work Phone: Comment on above: 15 Occurrences starting 09/16/2024 until 09/16/2028 12 lead ECG ECG 12 Lead ECG Routine NSVT (nonsustained ventricular tachycardia) (HCC) 09/18/2024 1:09 PM EST [facility] 6-minute walk test 6 minute walk PFT Routine Chronic obstructive pulmonary disease, unspecified COPD type (HCC) 12/30/2021 12:00 PM EST [facility] Alanine aminotransfe rase [Enzymatic activity/volume] in Serum or Plasma [facility] Albumin [Mass/volume ] in Serum or Plasma [facility] Albumin [Moles/volum e] in Serum or Plasma [facility] Albumin/Globulin ratio [facility] Alkaline phosphatase [Enzymatic activity/volume] in Serum or Plasma [facility] ALTEMEIER PROCEDURE ALTEMEIER SC OCEDURE Rectal prolapse [facility] Ambulatory ECG Event Monitor Amb ulatory ECG Event Monitor Cardiac Services Routine Ventricular tachycardia (HCC) Palpitations NSVT (nonsustained ventricular tachycardia) (HCC) Ordered: 09/18/2024 [facility] Comment on above: Ordered: 09/18/2024 Ambulatory ECG Event Monitor Amb ulatory ECG Event Monitor Cardiac Services Routine Ventricular tachycardia (HCC) Palpitations NSVT (nonsustained ventricular tachycardia) (HCC) Ordered: 10/23/2024 [facility] Work Phone: Comment on above: Ordered: 10/23/2024 Anion gap measurement [facility] Ankle brachial pressure index [facility] Work Phone: Ankle brachial pressure index [facility] Aspartate aminotrans ferase [Enzymatic activity/volume] in Serum or Plasma [facility] Bacteria identified in Blood by Culture Blood Culture Aerobic/Anaerobic Microbiology Routine 09/02/2024 11:39 AM EDT [facility] Work Phone: Bacteria identified in Blood by Culture [facility] Work Phone: Bacteria identified in Blood by Culture Blood Culture Aerobic/Anaerobic Microbiology ABDELRAHMAN 02/13/2025 5:53 PM EDT [facility] Work Phone: Bilirubin, total measurement [facility] BUN/Creatinine ratio [facility] Calcium [Mass/volume ] in Serum or Plasma [facility] Carbon dioxide, tota l [Moles/volume] in Serum or Plasma [facility] End: 03-08-2023 CBC panel - Blood by Automated count CBC Lab Routine Rectal prolapse Preoperative testing 1 Occurrences starting 03/08/2022 until 03/08/2023 [facility] Work Phone: Comment on above: 1 Occurrences starting 03/08/2022 until 03/08/2023 Chloride [Moles/volu me] in Serum or Plasma [facility] Colonoscopy COLONOSCOPY Hx o f colonic polyps [facility] End: 03-08-2023 Comprehensive metabolic 2000 panel - Serum or Plasma Comprehensive metabolic panel Lab Routine Rectal prolapse Preoperative testing 1 Occurrences starting 03/08/2022 until 03/08/2023 [facility] Comment on above: 1 Occurrences starting 03/08/2022 until 03/08/2023 Creatinine [Moles/vo lume] in Serum or Plasma [facility] CT Chest [facility] CT Chest [facility] DXA Bone [Mass/Area] Bone density [facility] End: 04-05-2020 Echocardiography Echocardiogram complete Echocardiography Routine Abnormal electrocardiogram Cardiomyopathy, unspecified type (HCC) Hypertension, unspecified type 1 Occurrences starting 04/05/2019 until 04/05/2020 [facility] Comment on above: 1 Occurrences starting 04/05/2019 until 04/05/2020 Elastase, pancreatic (el-1), fecal; quantitative [facility] Electrophoresis: [id number] [facility] Electrophoresis: tanja ma globulin [facility] Exercise tolerance test [facility] Globulin measurement [facility] Glucose [Mass/volume ] in Serum or Plasma [facility] IgA [Mass/volume] in Serum or Plasma [facility] IgG [Mass/volume] in Serum or Plasma [facility] IgM [Mass/volume] in Serum or Plasma [facility] End: 03-08-2023 INR in Platelet poor plasma by Coagulation assay PT/INR Lab Routine Rectal prolapse Preoperative testing Abdominal pain, unspecified abdominal location 1 Occurrences starting 03/08/2022 until 03/08/2023 [facility] Comment on above: 1 Occurrences starting 03/08/2022 until 03/08/2023 [place]/lambda light c bud ratio [facility] Work Phone: [place]/lambda light c bud ratio [facility] Lambda light chains. free [Mass/volume] in Serum or Plasma [facility] Work Phone: Lambda light chains. free [Mass/volume] in Serum or Plasma [facility] End: 12-30-2022 Low dose computed tomography of thorax CT Lung Cancer Screening Imaging Routine Screening for lung cancer Chronic obstructive pulmonary disease, unspecified COPD type (HCC) 1 Occurrences starting 12/30/2021 until 12/30/2022 [facility] Work Phone: Comment on above: 1 Occurrences starting 12/30/2021 until 12/30/2022 Measurement of immun oglobulin A in serum specimen [facility] Measurement of renal function [facility] Measurement of respi ratory function [facility] MG Breast - bilatera l Screening [facility] MR Cervical spine [facility] Work Phone: MR Cervical spine [facility] MR Cervical spine [facility] End: 09-18-2025 MR Heart WO and W contrast IV MR Cardiac Morphology Wi th And Without Contrast Without velocity flow Imaging Routine Ventricular tachycardia (HCC) Palpitations NSVT (nonsustained ventricular tachycardia) ([facility]) 1 Occurrences starting 09/18/2024 until 09/18/2025 [facility] Work Phone: Comment on above: 1 Occurrences starting 09/18/2024 until 09/18/2025 End: 04-10-2019 MR Hip Right Without Contrast MR Hip Right Without Contrast Imaging Routine Right hip pain Once for 1 Occurrences starting 04/10/2019 until 04/10/2019 [facility] Comment on above: Once for 1 Occurrences starting 04/10/20 until 04/10/2019 MR Hip Right Without Contrast MR Hip Right Without Contrast Imaging Routine Right hip pain 04/10/2019 1:54 PM EDT [facility] MR Lower Extremity Joint [facility] MRI of cervical spine MRI SPINE CERVICAL WITHOUT CONTRAST Imaging Routine Cervical spine disease Ordered: 08/24/2016 [facility] Comment on above: Ordered: 08/24/2016 MRI of lower extremity MRI LONG BONE NEUROGRAPHY LOWER EXTREMITY LEFT Imaging Routine Myopathy Ordered: 08/24/2016 [facility] Comment on above: Ordered: 08/24/2016 MRI of lumbar spine MRI SPINE ANIL MBAR WITHOUT CONTRAST Imaging Routine Osteoarthritis of spine with radiculopathy, lumbar region Ordered: 08/24/2016 [facility] Comment on above: Ordered: 08/24/2016 Myoglobin [Presence] in Urine My emil, Urine Lab STAT 04/14/2021 4:26 PM EDT [facility] Patient Education ED Neck Pain E D Neck Spasm, No Trauma [facility] Work Phone: Patient referral [facility] Work Phone: Polysomnography [facility] Potassium [Moles/vol ume] in Serum or Plasma [facility] Procedure on tissue specimen [facility] Work Phone: Comment on above: Release Upon Ordering for 1 Occurrences starting 03/30/2022, 1 completed Protein electrophore sis panel - Serum or Plasma [facility] Sodium [Moles/volume ] in Serum or Plasma [facility] End: 07-08-2023 Standard chest X-ray XR Chest AP/PA and LAT Imaging Routine COPD exacerbation (HCC) 1 Occurrences starting 07/08/2022 until 07/08/2023 [facility] Comment on above: 1 Occurrences starting 07/08/2022 until 07/08/2023 Thiamine measurement [facility] Work Phone: Thyroid stimulating hormone measurement [facility] Tissue transglutamin ase IgA Ab [Units/volume] in Serum [facility] Total protein measurement [facility] Ultrasound Duplex Ve nous Leg RIGHT Ultrasound Duplex Venous Leg RIGHT Vascular Ultrasound ABDELRAHMAN 11/02/2020 3:21 PM EST [facility] Urea nitrogen [Mass/ volume] in Serum or Plasma [facility] Urine kappa light ch ain measurement [facility] Work Phone: Urine kappa light ch ain measurement [facility] US Thyroid gland [facility] Walking distance 6 [address] [facility] End: 10-06-2024 XR Hand - left 2 Views XR Hand Left 2 Views Imaging Routine Pain 1 Occurrences starting 10/06/2023 until 10/06/2024 [facility] Work Phone: Comment on above: 1 Occurrences starting 10/06/2023 until 10/06/2024 End: 09-02-2025 XR Knee - bilateral AP and Lateral W standing XR Knees Standing Bilateral AP/ LAT Imaging Routine Pain 1 Occurrences starting 09/02/2024 until 09/02/2025 [facility] Work Phone: Comment on above: 1 Occurrences starting 09/02/2024 until 09/02/2025 [facility] Immunizations Immunization Date Immunization Notes Care Provider Elsa yañez 09-03-2024 influenza, high dose seasonal, preservative-free Ramírez Cunningham MD Work Phone: [facility] 09-03-2024 influenza virus vacc ine, unspecified formulation [facility] 10-17-2023 Covid (Spikevax) Dr. Jennifer Gordon Work Phone: [facility] 10-17-2023 influenza, injectabl e, quadrivalent, preservative free Dr. Jennifer Gordon Work Phone: [facility] 10-17-2023 influenza virus vacc ine, unspecified formulation Rivas Jules MD Work Phone: [facility] 10-14-2022 Covid Moderna Bivale nt Booster Dr. Jennifer Gordon Work Phone: [facility] 10-14-2022 Influenza, high dose seasonal Dr. Jennifer Gordon MD Work Phone: [facility] 10-14-2022 influenza, high dose seasonal, preservative-free [employer] MANAGER-C Jonathan Rutherford RECEPTION C[employer] MANAGER Work Phone: [facility] 10-14-2022 influenza, injectabl e, quadrivalent, preservative free Dr. Jennifer Gordon Work Phone: [facility] 10-14-2022 influenza virus vacc ine, unspecified formulation Provider System [facility] 10-27-2021 Covid (Moderna) [employer] MANAGER-C Jonathan Rutherford RECEPTION CENTRE MANAGER Work Phone: [facility] 10-13-2021 influenza, injectabl e, quadrivalent, preservative free Dr. Jennifer Gordon Work Phone: [facility] 10-13-2021 influenza, seasonal, injectable [employer] MANAGER-C Jonathan Rutherford RECEPTION CENTRE MANAGER Work Phone: [facility] 01-08-2021 Covid (Augie & Augie) [employer] MANAGER-C Jonathan Rutherford RECEPTION CENTRE MANAGER Work Phone: [facility] 08-20-2020 influenza, injectabl e, quadrivalent, preservative free Dr. Jennifer Gordon Work Phone: [facility] 08-20-2020 influenza, seasonal, injectable [employer] MANAGER-C Jonathan Gallegoer RECEPTION CENTRE MANAGER Work Phone: [facility] 08-13-2019 Influenza, high dose seasonal Dr. Jennifer Gordon MD Work Phone: [facility] 08-13-2019 influenza, high dose seasonal, preservative-free [employer] MANAGER-C Jonathan Gallegoer RECEPTION C[employer]RE MANAGER Work Phone: [facility] 09-17-2018 influenza, injectabl e, quadrivalent, preservative free Dr. Jennifer Gordon Work Phone: [facility] 09-17-2018 influenza, seasonal, injectable [employer] MANAGER-C Jonathan Gallegoer RECEPTION CENTRE MANAGER Work Phone: [facility] 01-30-2018 pneumococcal polysaccharide vaccine, 23 valent [employer] MANAGER-C Jonathan Rutherford RECEPTION CENTRE MANAGER Work Phone: [facility] 09-18-2017 influenza, injectabl e, quadrivalent, preservative free Dr. Jennifer Gordon Work Phone: [facility] 09-18-2017 influenza, seasonal, injectable [employer] MANAGER-C Jonathan Gallegoer RECEPTION CENTRE MANAGER Work Phone: [facility] 09-18-2017 influenza, seasonal, injectable, preservative free [facility] 09-18-2017 Seasonal, quadrivale nt, recombinant, injectable influenza vaccine, preservative free Dr. Jennifer Gordon Work Phone: [facility] 09-18-2017 influenza virus vacc ine, unspecified formulation [facility] 11-14-2016 influenza, injectabl e, quadrivalent, preservative free Dr. Jennifer Gordon Work Phone: [facility] 11-14-2016 influenza, seasonal, injectable [employer] MANAGER-C Jonathan Rutherford RECEPTION CENTRE MANAGER Work Phone: [facility] 11-14-2016 influenza, seasonal, injectable, preservative free [facility] 11-14-2016 Seasonal, quadrivale nt, recombinant, injectable influenza vaccine, preservative free Dr. Jennifer Gordon Work Phone: [facility] 01-18-2016 influenza, injectabl e, quadrivalent, preservative free Dr. Jennifer Gordon Work Phone: [facility] 01-18-2016 influenza, seasonal, injectable [employer] MANAGER-C Jonathan Rutherford RECEPTION CENTRE MANAGER Work Phone: [facility] 01-18-2016 influenza, seasonal, injectable, preservative free Dr. Jennifer Gordon MD Work Phone: [facility] 01-18-2016 Seasonal, quadrivale nt, recombinant, injectable influenza vaccine, preservative free Dr. Jennifer Gordon Work Phone: [facility] Payers Date Payer Category Payer Self-pay [id number] 2021 Medicaid [id number] 2020 Medicaid [id number]. [id number] 2020 Medicare Managed Car e (unspecified) [facility] DUAL COMPLETE (O SNP) [place] [address] [id number] [id number] 2020 Medicare [id number] 2020 Private Health Insurance [id number] 2016 Medicaid [id number] 2.16.840.1.389988.3.249. 13 2016 Medicaid MEDICAID [facility] [id number] 2016-Present [id number] 1.2.840.831444.1.13.385. 2.7.3.996565.315 2016 Medicaid [id number] 2.16.840.1.112339.3.249. 13 2013 Medicare [id number] 2.16.840.1.287759.3.249. 13 2013 Medicare HUMANA MANAGED NENA HUMANA MCR ADVANTAGE CHOICE PPO [id number] 2013-Present [id number] 1.2.840.598030.1.13.385. 2.7.3.780715.315 2009 Medicare [id number]. 1.13.385. 2.7.3.287261.315 2009 Medicare [id number] 1960 Unknown [id number] 2.16.840.1.010749.3.579. 2.356 1958 Unknown [id number] 2.16.840.1.713986.3.579. 2.356 1958 Unknown [id number] 2.16.840.1.149775.3.579. 2.356 1958 Unknown [id number] 2.16.840.1.947899.3.579. 2.2 1958 Unknown [id number] 2.16.840.1.578499.3.579. 2. 1960 Unknown [id number] 2.16.840.1.483885.3.579. 2.3 1958 Unknown [id number] 2.16.840.1.337352.3.579. 2. 1960 Unknown [id number] 2.16.840.1.618598.3.579. 2. 1958 Unknown [id number] 2.16.840.1.152282.3.579. 2. 1960 Unknown [id number] 2.16.840.1.702980.3.579. 2. 1960 Unknown [id number] 2.16.840.1.616642.3.579. 2. 1958 Unknown [id number] 2.16.840.1.922432.3.579. 2. 1960 Unknown [id number] 2.16.840.1.876587.3.579. 2. 1960 Unknown [id number] 2.16.840.1.334531.3.579. 2. 1960 Unknown [id number] 2.16.840.1.132490.3.579. 2. 1960 Unknown [id number] 2.16.840.1.156260.3.579. 2.430 1958 Unknown [id number] 2.16.840.1.673522.3.579. 2.430 1960 Unknown [id number] 2.16.840.1.672076.3.579. 2.430 Medicare [id number] 2.16.840.1.893864.3.249. 13 Medicaid [id number] Unknown Unknown [id number] 2..840.1.202476.3.579. 2.462 Unknown [id number] 2.840.1.421748.3.579. 2.462 Unknown [id number] 2.840.1.269182.3.579. 2.462 Unknown [id number] 2.840.1.064392.3.579. 2.462 Unknown [id number] 2.840.1.953137.3.579. 2.462 Unknown [id number] 2.840.1.603953.3.579. 2.462 Unknown [id number] 2.840.1.744574.3.579. 2.462 Unknown [id number] 2.840.1.848546.3.579. 2.462 Unknown [id number] 2.840.1.279531.3.579. 2.462 Unknown [id number] 2.840.1.532522.3.579. 2.462 Unknown [id number] .840.1.368413.3.579. 2.462 Unknown [id number] 2.840.1.251533.3.579. 2.462 Unknown [id number] .840.1.209657.3.579. 2.462 Unknown [id number] .840.1.984853.3.579. 2.462 Unknown [id number] .840.1.774526.3.579. 2.462 Unknown [id number] 2.840.1.394553.3.579. 2.462 Unknown [id number] 2.840.1.642770.3.579. 2.462 Unknown [id number] 2.840.1.660375.3.579. 2.462 Unknown [id number] 2.16.840.1.752293.3.579. 2.462 Unknown [id number] 2.16.840.1.723636.3.579. 2.462 Unknown [id number] 2.16.840.1.141217.3.579. 2.462 Unknown [id number] 2.16.840.1.813902.3.579. 2.462 Unknown [id number] 2.16.840.1.395358.3.579. 2.462 Unknown [id number] 2.16.840.1.436976.3.579. 2.462 Unknown [id number] 2.16.840.1.610013.3.579. 2.462 Unknown [id number] 2.16.840.1.662172.3.579. 2.462 Unknown [id number] 2.16.840.1.642055.3.579. 2.462 Unknown [id number] 2.16.840.1.410711.3.579. 2.462 Unknown [id number] 2.16.840.1.886852.3.579. 2.462 Social History Date Type Detail Facility Start: 07-04-2017 End: 2025 Tobacco smoking status NHIS Former smoker [facility] Work Phone: Start: 07-10-1993 End: 07-10-2013 History of tobacco use Current smoker [facility] Work Phone: Start: 07-04-2017 End: 06-03-2024 Cigarettes smoked current (pack per day) - Reported [facility] Start: 1960 Sex Assigned At Not on file [facility] Work Phone: Start: 07-10-1993 End: 07-10-2013 History of tobacco use Cigarette Smoker [facility] Start: 05-07-2019 End: 06-03-2024 Alcohol intake Current non-drinker of alcohol (finding) [facility] Start: 11-14-2016 End: 09-15-2020 Tobacco use and exposure Never used [facility] Start: 12-17-2021 End: 07-19-2022 Exposure to SARS-CoV-2 (event) Not sure [facility] Start: 10-06-2022 End: 02-27-2024 Tobacco smoking status NHIS Unknown if ever smoked [facility] Start: 1960 Sex Assigned At Female [facility] Start: 02-13-2023 History SDOH Financial 2 [facility] Start: 02-13-2023 History SDOH Food Worry 1 [facility] Child osiel[facility] Start: 02-13-2023 History SDOH Food Scarcity 98 [facility] Start: 11-10-2022 End: 06-03-2024 Tobacco use panel [facility] Adult Depression Screening Assessment 0 [facility] Start: 05-18-2018 Gender identity Identifies as female gender (finding) [facility] Start: 05-07-2019 Sexual orientation Heterosexual (finding) [facility] How hard is it for y ou to pay for the very basics like food, housing, medical care, and heating Hard [facility] (I/We) worried wheroberta er (my/our) food would run out before (I/we) got money to buy more. Never true [facility] The food that (I/we) bought just didn't last, and (I/we) didn't have money to get more. DK or Refused [facility] In the past 12 month s, was there a time when you were not able to pay the mortgage or rent on time? No [facility] In the past 12 month s, was there a time when you were not able to pay the mortgage or rent on time? Yes [facility] How hard is it for y ou to pay for the very basics like food, housing, medical care, and heating Somewhat hard [facility] Start: 01-23-2025 End: 02-05-2025 Sex Female (finding) [facility] Mental Status Date Assessment Result Facility 01-01-2025 Cognitive function Level Of Cons ciousness Awake;Alert;Appropriate;Follow s Commands [facility] Work Phone: Clinical Notes 03-15-2021 to 06-17-2025 Telephone Encounter - Nikolai Gray - 06/17/2025 2:50 PM EDTTelephone Encounter - Nikolai Gray - 06/17/2025 2:50 PM EDTTelephone Encounter - Meliza Rust - 06/11/2025 2:35 PM EDT Note Date & Type Note Facility 06-17-2025 Telephone encounter Note Left message for patient to schedule a follow up appy [facility] 06-17-2025 Miscellaneous Notes Left message for patient to schedule a follow up appy documented in this encounter [facility] 06-11-2025 Telephone encounter Note Patient called and was stuck in traffic . Wouldn't make it until after 4 she stayed that she will call in about a week. [facility] 06-11-2025 Miscellaneous Notes Patient called and was stuck in traffic . Wouldn't make it until after 4 she stayed that she will call in about a week. documented in this encounter [facility] 05-09-2025 Radiology Diagnostic study note [facility] Imaging Services [address] [place] [address] [id number] Thyroid MR#: [id number] Acct: [id number] Name: RADHA SHAFER ANIL Rep #: [id number] : [id number] F [id number] From: Shavonne Guevara MD PCP: Dr. Jennifer Gordon MD Status: REG CLI Study:Thyroid Date of Exam: 05/07/25 Exam# [id number] Ordering Dr: Jennifer Gordon MD PROCEDURE: THYROID, 05/07/2025 REASON FOR EXAM: THYROID CANCER FOLLOW UP TECHNIQUE: Grayscale and color Doppler imaging of the thyroidectomy bed was performed. COMPARISON: None FINDINGS: Total thyroidectomy. No definite residual thyroid tissue or other abnormality of the thyroidectomy bed is identified. US/Thyroid IMPRESSION: Total thyroidectomy without definite residual thyroid tissue or other abnormality of the thyroidectomy bed. Reading Location: [id number] CC: Dr. Jennifer Gordon MD ~ Search Engine Optimization Manager: Signed [facility] 05-02-2025 Telephone encounter Note [facility] called to see if there was an update on the patient taking or not taking the Dojolvi and if there are any side effects she may be experiencing. Please give them a call at [phone] and ask for a Pharmacist on the Dojolvi team. Thank you, Meaghan [facility] 05-02-2025 Miscellaneous Notes [facility] called to see if there was an update on the patient taking or not taking the Dojolvi and if there are any side effects she may be experiencing. Please give them a call at [phone] and ask for a Pharmacist on the Dojolvi team. Thank you, Meaghan documented in this encounter [facility] 04-30-2025 Note Heart & Vascular Cli teofilo Note [facility] Visit Date: 04/30/2025 Patient Name: Radha Shafer : 1960 Reason for Visit: Follow-up (4 mo NSVT Cardiac MRI ) ASSESSMENT: #NSVT episodes: Noted on an event monitor. Echo w/ Nl LVEF- 60%. Stress test done in April was negative for ischemia. LHC done in 2021 showed luminal irregularities. MRI was negative for any infiltrative disease. She denies any palpitations. Metoprolol was increased to 100mg which she has tolerated. Repeat holter monitor did not record any NSVT episodes. #SOB: progressively worsening. Unclear etiology. Has a h/o COPD. Euvolemic on examination. #COPD: On oxygen. 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 Done in [place]. LVEF-60% #CARDIAC MRI Normal biventricular size and systolic function. No evidence or ARVC or amyloidosis. PLAN: --no changes to medications at this time. --f/u yearly. HPI: Radha Shafer is a 65 y.o. female who presents today for f/u. She has a h/o CPT2 deficiency w/ chronic myalgias, Hypothyroidism, h/o thyroid cancer, HTN,HLD, FELISA. Noted NSVT episodes on an event monitor. Plan was to pursue an MRI Histories Past Medical History: Diagnosis Date Anxiety Arthritis Back pain Bladder problem incontinence Cancer (HCC) thyroid Chronic pain disorder Colitis sigmoid COPD (chronic obstructive pulmonary disease) (HCC) 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HCC) Per pt. - Depression Diabetes (HCC) Diverticulosis Emphysema of lung (HCC) GERD (gastroesophageal reflux disease) Hepatic steatosis History of echocardiogram History of stress test Hypertension Hypothyroidism Kidney disease, chronic, stage I (GFR over 89 ml/min) stage 3 Lung nodule Neuromuscular disorder (HCC) 2015 I have cpt2 difficency Obesity On home oxygen therapy 2L via NC, PRN with walking, activity Scoliosis 03/2022 Sleep apnea noncompliant with CPAP; uses home oxygen Sleep apnea, obstructive Past Surgical History: Procedure Laterality Date ALTEMEIER PROCEDURE N/A 03/30/2022 Procedure: ALTEMEIER PROCEDURE; Surgeon: Jada Vargas MD; [place] [facility] [place]; Service: Colorectal CARDIAC CATHETERIZATION N/A 09/26/2022 Procedure: Coronary Angiogram; Surgeon: Tor Long MD; Location: [facility]; Service: Cardiovascular CARDIOVASCULAR STRESS TEST CHOLECYSTECTOMY COLONOSCOPY with biopsies COLONOSCOPY N/A 02/17/2022 Procedure: COLONOSCOPY; Surgeon: Jada Vargas MD; [place] [facility] [place]; Service: Colorectal EGD N/A 08/15/2022 Procedure: ESOPHAGOGASTRODUODENOSCOPY WITH BIOPSY; Surgeon: Tyshawn Santos MD; Location: Endo; Service: Gastroenterology GALLBLADDER HC LEFT HEART CATH N/A 09/26/2022 Procedure: Left Heart Cath; Surgeon: Tor Long MD; Location: [facility]; Service: Cardiovascular HYSTERECTOMY JOINT REPLACEMENT Left knee ORTHOPEDIC SURGERY r wrist surgery, left ankle, right rotator cuff ROTATOR CUFF REPAIR Right SIGMOIDOSCOPY FLEXIBLE N/A 06/23/2022 Procedure: SIGMOIDOSCOPY FLEXIBLE WITH BIOPSY; Surgeon: Tyshawn Santos MD; Location: [facility]; Service: Gastroenterology THYROIDECTOMY N/A 07/15/2015 Procedure: TOTAL THYROIDECTOMY; Surgeon: Lopez Alonso MD; Location: [facility]UR[facility] OR; Service: US ECHO TRANSTHORACIC FOLLOWUP LIMITED WRIST SURGERY Right Family History Problem Relation Age of Onset Heart disease Mother Lupus Mother Stroke Mother Arthritis Mother Heart attack Mother Heart disease Father Heart attack Father Hypertension Father Hypertension Sister Hypertension Brother Prostate cancer Brother Colon cancer Brother Hypertension Brother Prostate cancer Brother Colon cancer Brother Hypertension Brother Prostate cancer Brother Stomach cancer Brother Heart attack Maternal Grandmother Heart attack Maternal Grandfather Heart attack Paternal Grandmother Heart attack Paternal Grandfather Breast cancer Neg Hx Social History[1] Penicillins and Vancomycin Patient's Medications New Prescriptions No medications on file Previous Medications ALBUTEROL (PROVENTIL) 2.5 MG /3 ML (0.083 %) NEBULIZER SOLUTION Take by nebulization every 6 (six) hours as needed for wheezing . ALBUTEROL 90 MCG/ACTUATION INHALER Inhale 2 (two) puffs every 6 (six) hours as needed for wheezing . ASPIRIN 81 MG CHEWABLE TABLET Chew and Swallow 1 (one) tablet (81 mg total) daily . CETIRIZINE (ZYRTEC) 10 MG TABLET Take 1 (one) tablet (10 mg total) by mouth daily . CHOLECALCIFEROL, VITAMIN D3, 1,000 UNIT TABLET Take 1 (one) table (more content not included)... [facility] 04-30-2025 History of Present illness Narrative Heart & Vascular Clinic Note [facility] Visit Date: 04/30/2025 Patient Name: Radha Shafer : 1960 Reason for Visit: Follow-up (4 mo NSVT Cardiac MRI ) ASSESSMENT: #NSVT episodes: Noted on an event monitor. Echo w/ Nl LVEF- 60%. Stress test done in April was negative for ischemia. LHC done in 2021 showed luminal irregularities. MRI was negative for any infiltrative disease. She denies any palpitations. Metoprolol was increased to 100mg which she has tolerated. Repeat holter monitor did not record any NSVT episodes. #SOB: progressively worsening. Unclear etiology. Has a h/o COPD. Euvolemic on examination. #COPD: On oxygen. 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 Done in [place]. LVEF-60% #CARDIAC MRI Normal biventricular size and systolic function. No evidence or ARVC or amyloidosis. PLAN: --no changes to medications at this time. --f/u yearly. HPI: Radha Shafer is a 65 y.o. female who presents today for f/u. She has a h/o CPT2 deficiency w/ chronic myalgias, Hypothyroidism, h/o thyroid cancer, HTN,HLD, FELISA. Noted NSVT episodes on an event monitor. Plan was to pursue an MRI Histories Past Medical History: Diagnosis Date Anxiety Arthritis Back pain Bladder problem incontinence Cancer (HCC) thyroid Chronic pain disorder Colitis sigmoid COPD (chronic obstructive pulmonary disease) (HCC) 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HCC) Per pt. - Depression Diabetes (HCC) Diverticulosis Emphysema of lung (HCC) GERD (gastroesophageal reflux disease) Hepatic steatosis History of echocardiogram History of stress test Hypertension Hypothyroidism Kidney disease, chronic, stage I (GFR over 89 ml/min) stage 3 Lung nodule Neuromuscular disorder (HCC) 2015 I have cpt2 difficency Obesity On home oxygen therapy 2L via NC, PRN with walking, activity Scoliosis 03/2022 Sleep apnea noncompliant with CPAP; uses home oxygen Sleep apnea, obstructive Past Surgical History: Procedure Laterality Date ALTEMEIER PROCEDURE N/A 03/30/2022 Procedure: ALTEMEIER PROCEDURE; Surgeon: Jada Vargas MD; [place] [facility] [place]; Service: Colorectal CARDIAC CATHETERIZATION N/A 09/26/2022 Procedure: Coronary Angiogram; Surgeon: Tor Long MD; Location: [facility]; Service: Cardiovascular CARDIOVASCULAR STRESS TEST CHOLECYSTECTOMY COLONOSCOPY with biopsies COLONOSCOPY N/A 02/17/2022 Procedure: COLONOSCOPY; Surgeon: Jada Vargas MD; [place] [facility] [place]; Service: Colorectal EGD N/A 08/15/2022 Procedure: ESOPHAGOGASTRODUODENOSCOPY WITH BIOPSY; Surgeon: Tyshawn Santos MD; Location: [facility]; Service: Gastroenterology GALLBLADDER HC LEFT HEART CATH N/A 09/26/2022 Procedure: Left Heart Cath; Surgeon: Tor Long MD; Location: [facility]; Service: Cardiovascular HYSTERECTOMY JOINT REPLACEMENT Left knee ORTHOPEDIC SURGERY r wrist surgery, left ankle, right rotator cuff ROTATOR CUFF REPAIR Right SIGMOIDOSCOPY FLEXIBLE N/A 06/23/2022 Procedure: SIGMOIDOSCOPY FLEXIBLE WITH BIOPSY; Surgeon: Tyshawn Santos MD; Location: Endo; Service: Gastroenterology THYROIDECTOMY N/A 07/15/2015 Procedure: TOTAL THYROIDECTOMY; Surgeon: Lopez Alonso MD; Location: [facility]; Service: US ECHO TRANSTHORACIC FOLLOWUP LIMITED WRIST SURGERY Right Family History Problem Relation Age of Onset Heart disease Mother Lupus Mother Stroke Mother Arthritis Mother Heart attack Mother Heart disease Father Heart attack Father Hypertension Father Hypertension Sister Hypertension Brother Prostate cancer Brother Colon cancer Brother Hypertension Brother Prostate cancer Brother Colon cancer Brother Hypertension Brother Prostate cancer Brother Stomach cancer Brother Heart attack Maternal Grandmother Heart attack Maternal Grandfather Heart attack Paternal Grandmother Heart attack Paternal Grandfather Breast cancer Neg Hx Social History[1] Penicillins and Vancomycin Patient's Medications New Prescriptions No medications on file Previous Medications ALBUTEROL (PROVENTIL) 2.5 MG /3 ML (0.083 %) NEBULIZER SOLUTION Take by nebulization every 6 (six) hours as needed for wheezing . ALBUTEROL 90 MCG/ACTUATION INHALER Inhale 2 (two) puffs every 6 (six) hours as needed for wheezing . ASPIRIN 81 MG CHEWABLE TABLET Chew and Swallow 1 (one) tablet (81 mg total) daily . CETIRIZINE (ZYRTEC) 10 MG TABLET Take 1 (one) tablet (10 mg total) by mouth daily . CHOLECALCIFEROL, VITAMIN D3, 1,000 UNIT TABLET Take 1 (one) tablet (1,000 Units total) by mouth daily . DOXEPIN (SINEQUAN) 100 MG CAPSULE Take 1 (one) capsule (100 mg total) by mouth nightly . DULOXETINE (CYMBALTA) 60 MG CAPSULE Take 1 (one) capsule (60 mg total) by mouth daily . FERROUS SULFATE 325 (65 FE) MG TABLET Take 1 (one) tablet (325 mg total) by mouth daily with breakfast . [id number]-[id number] (TRELEGY ELLIPTA) 200-62.5-25 MCG DSDV Inhale 1 (one) Inhalation daily . FUROSEMIDE (LASIX) 20 MG TABLET Take 1 (one) tablet (20 mg total) by mouth daily . LEVOTHYROXINE (SYNTHROID, LEVOTHROID) 175 MCG TABLET Take 1 (one) tablet (175 mcg total) by mouth daily in the evening . LISINOPRIL (PRINIVIL,ZESTRIL) 20 MG TABLET Take 1 (one) tablet (20 mg total) by mouth daily . LOVASTATIN (MEVACOR) 10 MG TABLET Take 1 (one) tablet (10 mg total) by mouth nightly . METOPROLOL TARTRATE (LOPRESSOR) 100 MG TABLET Take 1 (one) tablet (100 mg total) by mouth 2 (two) times a day . NIFEDIPINE (ADALAT CC) 30 MG 24 HR TABLET Take 1 (one) tablet (30 mg total) by mouth daily . OMEPRAZOLE (PRILOSEC) 40 MG CAPSULE Take 1 (one) capsule (40 mg total) by mouth daily . OXYGEN Inhale 4 L/min as needed Per patient, only used when walking or with activity . PREDNISONE (DELTASONE) 20 MG TABLET Take 2 (two) tablets (40 mg total) by mouth daily with breakfast Start: 02/19/25. SULFAMETHOXAZOLE-TRIMETHOPRIM (BACTRIM DS,SEPTRA DS) 800-160 MG PER TABLET Take 1 (one) tablet by mouth every 12 (twelve) hours . TIZANIDINE (ZANAFLEX) 4 MG TABLET Take 3 (three) tablets (12 mg total) by mouth at bedtime In addition to taking 2 tablets in the morning . TRIHEPTANOIN (DOJOLVI) 8.3 KCAL/ML LIQD Take 20 mL by mouth 3 (three) times a day . Modified Medications No medications on file Discontinued Medications No medications on file Allergies[2] Review of Systems All system(s) were reviewed. Pertinent positive and negative findings are noted in the HPI. All system negative unless otherwise noted in the HPI PACU Vitals 04/30/25 1006 BP: (!) 145/93 Pulse: 64 SpO2: 94% G: NAD HEENT: Anicteric Chest/Lung: CTA c/l, no wheezes, rubs, or rales CVS: S1 S2 no S3,4, no galops, rubs or murmurs Ab: Soft, NT, ND no guarding or rigidity LE: No edema Skin: Intact Neuro: non Focal Psychiatric: non Suicidal, non homicidal Lab Results Component Value Date GLUCOSE 119 (H) 02/18/2025 CALCIUM 9.1 02/18/2025 NA 137 02/18/2025 K 3.8 02/18/2025 CL 99 02/18/2025 BUN 22 02/18/2025 CREATININE 1.5 (H) 04/07/2025 Lab Results Component Value Date INR 0.9 09/02/2024 INR 1.1 06/21/2022 INR 1.0 03/14/2022 PROTIME 12.5 09/02/2024 PROTIME 14.2 06/21/2022 PROTIME 12.6 03/14/2022 Diagnostic tests, personally reviewed: ECG: sinus rhythm Holter monitor: sinus rhythm, no NSVT episodes Echocardiogram: reviewed Other workup reviewed ASSESSMENT & PLAN: See above Cb Boudreaux [1] Social History Socioeconomic History Marital status: Occupational History 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 Social Drivers of Health Financial Resource Strain: Medium Risk (06/03/2024) Received from [facility] Overall Financial Resource Strain (CARDIA) Difficulty of Paying Living Expenses: Somewhat hard Food Insecurity: No Food Insecurity (02/14/2025) Hunger Vital Sign Worried About Running Out of Food in the Last Year: Never true Ran Out of Food in the Last Year: Never true Transportation Needs: No Transportation Needs (02/14/2025) PRAPARE - Transportation Lack of Transportation (Medical): No Lack of Transportation (Non-Medical): No Housing Stability: Low Risk (02/14/2025) Housing Stability Vital Sign Unable to Pay for Housing in the Last Year: No Number of Times Moved in the Last Year: 1 Homeless in the Last Year: No [2] Allergies Allergen Reactions Penicillins Unknown and Other (See Comments) Was told as a child that she is allergic, but has never taken it to know the reaction. Childhood reaction Was told as a child that she is allergic, but has never taken it to know the reaction. Vancomycin Rash documented in this encounter [facility] 04-18-2025 Radiology Diagnostic study note [facility] Imaging Services [address] [place] [address] Lung Screening MR#: [id number] Acct: [id number] Name: RADHA SHAFER ANIL Rep #: [id number] : 1960 F [id number] From: Chris Tamez MD PCP: Dr. Jennifer Gordon MD Status: REG CLI Study:Low Dose CT Lung Screening Date of Exam : 04/17/25 Exam# [id number] Ordering Dr: John Heredia NP RECEPTION CENTRE MANAGER-C PROCEDURE: LOW DOSE CT LUNG SCREENING 04/17/2025 REASON FOR EXAM: FORMER SMOKER TECHNIQUE: Low Dose CT Lung screening without contrast. Coronal and Sagittal reconstructionseries were provided. One or more dose reduction techniques were used (e.g., Automated exposure control, adjustment of the mA and/or kV according to patient size, use of iterative reconstruction technique). REFERENCE LINK: [employer] Lung-RADS RADIATION DOSE SUMMARY: CTDlvol: 16.28 mGy DLP: 562.62 mGycm COMPARISON: Prior study dated July 03, 2023. FINDINGS: PULMONARY NODULES: (Only nodules >3mm are reported) Nodules described below are on series 1 unless otherwise specified. Pulmonary Nodules: Stable calcified granulomas in the lateral aspect of the right upper lobe. Hardware:None Lymph Nodes:Small mediastinal lymph nodes. Heart and Vasculature:Coronary artery calcifications are noted. Coronary Artery Calcifications: Present Lungs and Airways: Mild scarring in the left upper lobe as well as the posterioraspect of the lingular segment of the left upper lobe. Pleura:No pleural effusion. Upper Abdomen:Unremarkable Bones:Degenerative changes of the thoracic spine. CT/Low Dose CT Lung Screening IMPRESSION: Stable examination. Coronary artery calcification (CAC) is is present Lung-RADS Category: 2 BENIGN (BASED ON IMAGING FEATURES OR INDOLENT BEHAVIOR). RECOMMEND 12-MONTH SCREENING LDCT. Other Significant Findings: None. Reading Location: [id number] CC: YNES Heredia; Dr. Jennifer Gordon MD ~ Search Engine Optimization Manager: Signed [facility] 2025 Instructions Yareli Woodruff MA - 2025 4:26 PM EDT It was our pleasure to see you in EP Clinic today. Please contact: JASON Candelario [phone] FERMIN Downs RMA with questions, concerns, or if you need prescription refills before your next appointment. documented in this encounter [facility] 03-27-2025 Evaluation note Diagnosis Onset Date Resolution Low back pain acute March 27, 11:29am Polyneuropathy acute March 27, 2025 11:29am Insomnia chronic March 27, 2025 11:29am Arthrosis of right acromioclavicular joint acute March 1:50pm Impingement of right shoulder acute April 03, 2025 1:50pm Right shoulder pain acute March 072024 1:50pm Tendinosis of right rotator cuff acute April 03, 2025 1:50pm Smoking greater than 30 pack years acute April 04, 2025 1:38pm Stage 3 severe COPD by GOLD classification acute April 04, 2025 1:38pm Hypoxemia chronic April 04, 2025 1:38pm FELISA (obstructive sleep apnea) chronic April 04, 2025 1:38pm Carnitine palmitoyltransferase II deficiency acute 2025 1:12pm Prediabetes acute April 16 1:12pm FELISA (obstructive sleep apnea) chronic 2025 1:12pm Stage 3b chronic kidney disease (CKD) noneactive 2025 1:12pm Moderate major depression noneactive 2025 1:12pm Mixed hyperlipidemia noneactive 2025 1:12pm Foamy urine noneactive April 16 1:12pm Chronic abdominal pain noneactive 2024 1:12pm Post-operative hypothyroidism noneactive 2025 1:12pm Ventricular tachycardia noneactive J une 2024 1:12pm Essential hypertension noneactive Ju ne 2024 1:12pm COPD (chronic obstructive pulmonary disease) noneactive April 16 1:12pm Obesity (BMI 30-39.9) noneactive Michael e 2024 1:12pm Smoking greater than 20 pack years acute June 17 2:44pm Stage 3 severe COPD by GOLD classification acute June 17 2:44pm Hypoxemia chronic June 17 025 2:44pm FELISA (obstructive sleep apnea) chronic June 17 2:44pm Anemia acute June 26 025 1:54pm [facility] Work Phone: 1(950) 334-780504-30-2025 Telephone encounter Note* Telephone Encounter - Shaina Boykin MD - 03/05/2025 1:47 PM EDT Received a call from Radha this afternoon. She has CPT2. She was admitted last week to [facility] due to gastroenteritis and subsequently elevated CK level in the 20,000s. She has been havinglower extremity muscle pains that have increased in severity over the past few days. She is also having more difficulty walking. She says the pain is similar to other previous episodes of rhabdomyolysis. She said she was doing her best to stay hydrated, but her pain is not improving. I stated that she needs to have her CK level checked. She agreed and stated she would have labs drawn today or tomorrow at the latest. I told to go to the ED prior to tomorrow if her symptoms continue to worsen. She expressed understanding and has a copy of her Emergency Care letter. She plans to get labs drawn at [place]. I asked her to give us a call if her symptoms to not improve or if she has other questions/concerns. Plan discussed with concaving machine operator attending, Dr. Moon, and her primary metabolic provider, Dr. Hyman. Shaina Boykin MD PGY-4 Division of Genetic & Genomic [facility] Work Phone: [phone] Miscellaneous Notes* Telephone Encounter - Shaina Boykin MD - 03/05/2025 1:47 PM EDT Received a call from Radha this afternoon. She has CPT2. She was admitted last week to [facility] due to gastroenteritis and subsequently elevated CK level in the 20,000s. She has been havinglower extremity muscle pains that have increased in severity over the past few days. She is also having more difficulty walking. She says the pain is similar to other previous episodes of rhabdomyolysis. She said she was doing her best to stay hydrated, but her pain is not improving. I stated that she needs to have her CK level checked. She agreed and stated she would have labs drawn today or tomorrow at the latest. I told to go to the ED prior to tomorrow if her symptoms continue to worsen. She expressed understanding and has a copy of her Emergency Care letter. She plans to get labs drawn at [place]. I asked her to give us a call if her symptoms to not improve or if she has other questions/concerns. Plan discussed with concaving machine operator attending, Dr. Moon, and her primary metabolic provider, Dr. Hyman. Shaina Boykin MD PGY-4 Division of Genetic & Genomic Medicine [facility]* Diagnosis Onset Date Resolution Status Admit Date Left cervical radiculopathy acute February 27, 2025 2:25pm Lumbar stenosis without neurogenic claudication acute February 272024 2:25pm Low back pain acute March 27, 025 11:29am Polyneuropathy acute March 27, 2025 11:29am Insomnia chronic March 27, 2025 11:29am Arthrosis of right acromioclavicular joint acute March 1:50pm Impingement of right shoulder acute April 03, 2025 1:50pm Right shoulder pain acute March 072024 1:50pm Tendinosis of right rotator cuff acu te April 03, 2025 1:50pm Smoking greater than 30 pack years acute April 04, 2025 1:38pm Stage 3 severe COPD by GOLD classification acute April 04, 2025 1:38pm Hypoxemia chronic April 04, 2025 1:38pm FELISA (obstructive sleep apnea) chroni c April 04, 2025 1:38pm Carnitine palmitoyltransfera se II deficiency acute 2025 1:12pm Prediabetes acute April 16 1:12pm FELISA (obstructive sleep apnea) chroni c 2025 1:12pm Stage 3b chronic kidney dise ase (CKD) noneactive 2025 1:12pm Moderate major depression noneactive 2025 1:12pm Mixed hyperlipidemia noneactive 2025 1:12pm Foamy urine noneactive April 16 1:12pm Chronic abdominal pain noneactive Ju ne 2024 1:12pm Post-operative hypothyroidism noneac tive 2025 1:12pm Ventricular tachycardia noneactive [facility] 2024 1:12pm Essential hypertension noneactive [facility] 2024 1:12pm COPD (chronic obstructive pulmonary disease) noneactive April 16 1:12pm Obesity (BMI 30-39.9) noneactive Michael 2024 1:12pm Smoking greater than 20 pack years acute June 17 2:44pm Stage 3 severe COPD by GOLD classification acute June 17 2:44pm Hypoxemia chronic June 17 2:44pm FELISA (obstructive sleep apnea) chroni c June 17, 2025 2:44pm [facility] Work Phone: 1(431) 272-589004-15-2025 History of Present illness Narrative* Adelina Mejia RN - 02/18/2025 12:15 PM EDT Care Management Progress Note Date: 02/18/2025 Time: 12:15 PM Patient Name: Radha Shafer Date of : 1960 Discharge Plan: D/C Disposition: Home Reason for Choice: Patient/Family preference Regulatory Documentation: Medicare IM Regulatory Documentation Status: Certified Plan A: Home Patient Paper Copy: Patient received paper copy Discharging Transportation Plan: Transportation Type: Auto Discharge Plan Status: Patient has discharge orders placed. States her family will transport her home at discharge. She denies needs of CM. Care Management services completed at this time. Please reach out with any further needs. Assessment and Background Information: * Herve Rubio - 02/17/2025 11:23 PM EDT Spiritual Care Progress Note Completed by: Herve Rubio Person(s) Present During this Visit: Patient Time Spent in Direct Patient Care: 5 Narrative: This diamond setter apprentice provided spiritual care and supportive presence for the patient. Donor Services Coordinator remains available for emotional and spiritual support as needed. Patients Response to Pastoral Care: Expressed Gratitude for Visit Planning for Future Visits: PRN Pastoral care will remain available for emotional and spiritual support as needed. Chaplains can bereached by dialing the on-call number found within the signature of this note. Or, requested by on-call day diamond setter apprentice via [employer]. Rev. Herve Rubio Donor Services Coordinator Spiritual Care Department 02/17/25 2300 Visit Background Visit With Patient Visit By Staff Donor Services Coordinator Visit Progression Introduction;Follow-Up Visit Requested By Donor Services Coordinator Initiated Visit Source Donor Services Coordinator Initiated Visit Type Inpatient Visit Circumstances and Events Routine Visit Visit Length (minutes) 5 Patient's Response to Pastoral Care Expressed Gratitude for Visit Visit Planning PRN Spiritual Assessment Not assessed during visit Voodoo Assessment Not assessed during this visit Family assessment provided? Unable to asess during this visit * Letitia Obrien MD - 02/17/2025 1:30 PM EDT [facility] [place]GRESS [place] Assessment and Plan Radha Shafer is a 64 y.o. female patient of , Physician with history of COPD on home oxygen, struct of sleep apnea, hypertension, chronic kidney disease, hypothyroidism, CPT deficiency presented to [facility] on 02/13/2025 with shortness of breath. Gastroenteritis, resolved Diarrhea, norovirus and E. Coli, resolved Recent norovirus infection Stool PCR showing norovirus and enteropathogenic E. coli Status post IV fluid Zofran as needed This patient had norovirus infection with other family members a week ago, subsequently symptoms improved but now she has recurrent diarrhea, her stool PCR showing enteropathogenic E. coli, will start the patient on Bactrim and treat for 5 days CPT Deficiency with exacerbation secondary to gastroenteritis Muscle aches Rhabdomyolysis Elevated CK above 20,000 one presented IV hydration with dextrose 10%/normal saline genetic specialist at [employer] CK improving, discontinue fluids on February 16 after 72 hours of hydration Monitor BMP/magnesium Continue home Zanaflex twice daily Acute COPD exacerbation S/p IV methylprednisone DuoNebs scheduled Doxycycline, prednisone Acute on Cronic diastolic CHF mild acute pulmonary edema Dyspnea Ejection fraction 65% with grade 1 diastolic dysfunction on 09/2024 Chest x-ray on February 16 showing pulmonary edema pending final radiology read Start patient on p.o. Lasix 40 mg once daily Chronic kidney disease Avoid nephrotoxic agent Baseline GFR are around 35 Current GFR 34 Will monitor electrolyte and kidney function Elevated mild troponin, suspect demand ischemia secondary to rhabdomyolysis Level 100 repeated 99 Monitor cardiac enzyme Continue aspirin beta-saira Hypothyroidism Continue levothyroxine 175 mcg daily Last TSH 0.31 in September/2022 will order new TSH Hyperlipidemia Continue statin Obesity Encourage lifestyle modification Resolved acute medical issues Discharge Planning Medically Stable for Discharge Date: February 18 Patient requires continued hospitalization due to: Gastroenteritis resolved, possible discharge tomorrow Discharge Location: home Quality Measures DVT Prophylaxis: heparin subcutaneous Diaz Catheter: absent Code Status full code Primary Contact Information Subjective Patient denies any complaints today Increase activity Possible discharge to home tomorrow Objective BP (!) 157/79 Pulse 63 Temp 97.7 F (36.5 C) (Oral) Resp 18 Ht 5' 5 Wt 98 kg (216 lb) SpO2 98% BMI 35.94 kg/m Physical Examination General Appearance: alert; acutely ill appearing; in moderate acute distress HEENT: Head- normocephalic; Eyes- EOMI, sclera anicteric; Throat- mucous membranes moist Cardiovascular: regular rate and rhythm; normal S1, S2; no murmurs, rubs, clicks or gallops; peripheral edema absent Respiratory: lungs clear to auscultation; without wheezes, rales or rhonchi; on nasal cannula Abdomen: soft, non-tender, non-distended Neurological: oriented x 3; normal speech; no focal findings or movement disorder noted Musculoskeletal: no significant deformity or tenderness to palpation Skin: normal coloration Psych: normal mood and affect * Olga Russell MD - 02/16/2025 12:43 PM EDT [facility] [place] Assessment and Plan Radha Shafer is a 64 y.o. female patient of , [facility] with history of COPD on home oxygen, struct of sleep apnea, hypertension, chronic kidney disease, hypothyroidism, CPT deficiency presented to [facility] on 02/13/2025 with shortness of breath. Gastroenteritis, improving Diarrhea, norovirus and E. coli Recent norovirus infection Stool PCR showing norovirus and enteropathogenic E. coli Treated with IV hydration Zofran as needed This patient had norovirus infection with other family members a week ago, subsequently symptoms improved but now she has recurrent diarrhea, her stool PCR showing enteropathogenic E. coli, will start the patient on Bactrim and treat for 5 days CPT Deficiency with exacerbation secondary to gastroenteritis Muscle aches Rhabdomyolysis Elevated CK above 20,000 one presented IV hydration with dextrose 10%/normal saline genetic specialist at [employer] CK improving, discontinue fluids on February 16 after 72 hours of hydration Monitor BMP/magnesium Continue home Zanaflex twice daily Acute COPD exacerbation S/p IV methylprednisone DuoNebs scheduled Doxycycline, prednisone Acute on Cronic diastolic CHF mild acute pulmonary edema Dyspnea Ejection fraction 65% with grade 1 diastolic dysfunction on 09/2024 Chest x-ray on February 16 showing pulmonary edema pending final radiology read Start Lasix 20 mg IV twice daily for 3 doses on February 16 Continue beta-saira Chronic kidney disease Avoid nephrotoxic agent Baseline GFR are around 35 Current GFR 34 Will monitor electrolyte and kidney function Elevated mild troponin, suspect demand ischemia secondary to rhabdomyolysis Level 100 repeated 99 Monitor cardiac enzyme Continue aspirin beta-saira Hypothyroidism Continue levothyroxine 175 mcg daily Last TSH 0.31 in September/2022 will order new TSH Hyperlipidemia Continue statin Obesity Encourage lifestyle modification Resolved acute medical issues Discharge Planning Medically Stable for Discharge Date: February 17 Patient requires continued hospitalization due to: Initial presentation gastroenteritis and rhabdomyolysis which improved with fluids but now fluid overloaded so we will diurese today and tomorrow and treat E. coli with Bactrim given ongoing diarrhea Discharge Location: home Quality Measures DVT Prophylaxis: heparin subcutaneous Diaz Catheter: absent Code Status full code Primary Contact Information Subjective Shortness of breath Chest tightness Diarrhea 2 episodes this morning Objective BP (!) 180/84 Pulse 75 Temp 97.9 F (36.6 C) (Oral) Resp 18 Ht 5' 5 Wt 98 kg (216 lb) SpO2 94% BMI 35.94 kg/m Physical Examination General Appearance: alert; acutely ill appearing; in moderate acute distress HEENT: Head- normocephalic; Eyes- EOMI, sclera anicteric; Throat- mucous membranes moist Cardiovascular: regular rate and rhythm; normal S1, S2; no murmurs, rubs, clicks or gallops; peripheral edema absent Respiratory: lungs clear to auscultation; without wheezes, rales or rhonchi; on nasal cannula Abdomen: soft, non-tender, non-distended Neurological: oriented x 3; normal speech; no focal findings or movement disorder noted Musculoskeletal: no significant deformity or tenderness to palpation Skin: normal coloration Psych: normal mood and affect * Olga Russell MD - 02/15/2025 12:49 PM EDT [facility] [place] Assessment and Plan Radha Shafer is a 64 y.o. female patient of , Physician with history of COPD on home oxygen, struct of sleep apnea, hypertension, chronic kidney disease, hypothyroidism, CPT deficiency presented to [facility] on 02/13/2025 with shortness of breath. 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 Muscle aches Rhabdomyolysis Elevated CK above 20,000 one presented IV hydration with dextrose 10%/normal saline genetic specialist at [employer] [facility] [employer] CK in the morning Monitor BMP/magnesium Continue home Zanaflex twice daily Acute COPD exacerbation S/p IV methylprednisone DuoNebs scheduled Doxycycline, prednisone Acute on Cronic diastolic CHF Ejection fraction 65% with grade 1 diastolic dysfunction on 09/2024 Received 1 dose of IV Lasix, discontinue, patient euvolemic and has diarrhea Continue beta-saira Chronic kidney disease Avoid nephrotoxic agent Baseline GFR are around 35 Current GFR 34 Will monitor electrolyte and kidney function Elevated mild troponin, suspect demand ischemia secondary to rhabdomyolysis Level 100 repeated 99 Monitor cardiac enzyme Continue aspirin beta-saira Hypothyroidism Continue levothyroxine 175 mcg daily Last TSH 0.31 in September/2022 will order new TSH Hyperlipidemia Continue statin Obesity Encourage lifestyle modification Resolved acute medical issues Discharge Planning Medically Stable for Discharge Date: February 16 Patient requires continued hospitalization due to: Shortness of breath, rahbdo, stool PCR rapid Discharge Location: home Quality Measures DVT Prophylaxis: heparin subcutaneous Diaz Catheter: absent Code Status full code Primary Contact Information Subjective Still having mild diffuse muscle pain Otherwise chronic shortness of breath No diarrhea no bowel movement colostomy follow-up with Objective BP 134/83 Pulse (!) 57 Temp 97.5 F (36.4 C) (Oral) Resp 16 Ht 5' 5 Wt 98 kg (216 lb) SpO2 100% BMI 35.94 kg/m Physical Examination General Appearance: alert; acutely ill appearing; in moderate acute distress HEENT: Head- normocephalic; Eyes- EOMI, sclera anicteric; Throat- mucous membranes moist Cardiovascular: regular rate and rhythm; normal S1, S2; no murmurs, rubs, clicks or gallops; peripheral edema absent Respiratory: lungs clear to auscultation; without wheezes, rales or rhonchi; on nasal cannula Abdomen: soft, non-tender, non-distended Neurological: oriented x 3; normal speech; no focal findings or movement disorder noted Musculoskeletal: no significant deformity or tenderness to palpation Skin: normal coloration Psych: normal mood and affect * Olga Russell MD - 02/14/2025 3:28 PM EDT [facility] [place] Assessment and Plan Radha Shafer is a 64 y.o. female patient of , Physician with history of COPD on home oxygen, struct of sleep apnea, hypertension, chronic kidney disease, hypothyroidism, CPT deficiency presented to [facility] on 02/13/2025 with shortness of breath. Gastroenteritis Diarrhea Recent norovirus infection Dehydration Obtain stool PCR IV hydration Zofran as needed CPT Deficiency with exacerbation secondary to gastroenteritis Muscle aches Rhabdomyolysis Elevated CK above 20,000 IV hydration with dextrose/half-normal saline for the next 24 hours CK in the morning Monitor BMP/magnesium Continue home Zanaflex twice daily Acute COPD exacerbation S/p IV methylprednisone DuoNebs scheduled Doxycycline, prednisone Acute on Cronic diastolic CHF Ejection fraction 65% with grade 1 diastolic dysfunction on 09/2024 Received 1 dose of IV Lasix, discontinue, patient euvolemic and has diarrhea Continue beta-saira Chronic kidney disease Avoid nephrotoxic agent Baseline GFR are around 35 Current GFR 34 Will monitor electrolyte and kidney function Elevated mild troponin, suspect demand ischemia secondary to rhabdomyolysis Level 100 repeated 99 Monitor cardiac enzyme Continue aspirin beta-saira Hypothyroidism Continue levothyroxine 175 mcg daily Last TSH 0.31 in September/2022 will order new TSH Hyperlipidemia Continue statin Obesity Encourage lifestyle modification Resolved acute medical issues Discharge Planning Medically Stable for Discharge Date: February 16 Patient requires continued hospitalization due to: Shortness of breath, rahbdo, stool PCR rapid Discharge Location: home Quality Measures DVT Prophylaxis: heparin subcutaneous Diaz Catheter: absent Code Status full code Primary Contact Information Subjective Shortness of breath improving She has muscle spasm in the lower extremities Noted diarrhea yesterday and inability to tolerate diet Objective BP (!) 161/89 Pulse 67 Temp 97.5 F (36.4 C) (Oral) Resp (!) 20 Ht 5' 5 Wt 98 kg (216 lb) SpO2 99% BMI 35.94 kg/m Physical Examination General Appearance: alert; acutely ill appearing; in moderate acute distress HEENT: Head- normocephalic; Eyes- EOMI, sclera anicteric; Throat- mucous membranes moist Cardiovascular: regular rate and rhythm; normal S1, S2; no murmurs, rubs, clicks or gallops; peripheral edema absent Respiratory: lungs clear to auscultation; without wheezes, rales or rhonchi; on nasal cannula Abdomen: soft, non-tender, non-distended Neurological: oriented x 3; normal speech; no focal findings or movement disorder noted Musculoskeletal: no significant deformity or tenderness to palpation Skin: normal coloration Psych: normal mood and affect * Kavya Gentile - 02/14/2025 2:45 PM EDT Spiritual Care Progress Note Completed by: Kavya Gentile Person(s) Present During this Visit: Patient Time Spent in Direct Patient Care: 15 Narrative: This diamond setter apprentice visited with pt Radha while rounding on the unit. Donor Services Coordinator introduced selfand the role of a diamond setter apprentice. Listened empathetically while Radha shared her experience, and that shewas having a difficult time staying hydrated. Radha shared no immediate emotional/spiritual needs, but thanked the diamond setter apprentice for the visit. Pastoral Care to remain available as needed. 02/14/25 1445 Visit Background Visit With Patient Visit By Student Donor Services Coordinator Visit Progression Introduction Visit Requested By Donor Services Coordinator Initiated Visit Source Donor Services Coordinator Initiated Visit Type Inpatient;Rounding Visit Circumstances and Events Routine Visit Visit Length (minutes) 15 Patient's Response to Pastoral Care Appeared to be well-engaged Visit Planning PRN Spiritual Assessment Not assessed during visit Voodoo Assessment Not assessed during this visit Family assessment provided? Unable to asess during this visit Kavya Gentile MDiv Donor Services Coordinator Performance Architect [facility] On-Call Donor Services Coordinator Hotline: [phone] * Delmy Olmedo RN - 02/14/2025 2:26 PM EDT Patient complained of burning up her arm and to her shoulder, after this nurse hung doxycycline Axt. This nurse paused said axt, notified Dr. Sidra Espinoza at this time. documented in this [id number] NoteHMS DISCHARGE SUMMARY -- [facility] Radha Shafer Admitted: 02/13/2025 Discharge Date: 02/18/25 PCP Handoff Recommended Outpatient Testing Follow-up with PCP Results Pending At Discharge None Clinical Summary Radha Shafer is a 64 y.o. female patient of , Physician with history of COPD on home oxygen, struct of sleep apnea, hypertension, chronic kidney disease, hypothyroidism, CPT deficiency presented to [facility] on 02/13/2025 with shortness of breath. Gastroenteritis, resolved Diarrhea, norovirus and E. Coli, resolved Recent norovirus infection Stool PCR showing norovirus and enteropathogenic E. coli Status post IV fluid Zofran as needed This patient had norovirus infection with other family members a week ago, subsequently symptoms improved but now she has recurrent diarrhea, her stool PCR showing enteropathogenic E. coli, start the patient on Bactrim and treat for 7 days CPT Deficiency with exacerbation secondary to gastroenteritis Muscle aches Rhabdomyolysis Elevated CK above 20,000 one presented IV hydration with dextrose 10%/normal saline genetic specialist at [employer] [facility] [employer] CK improving 500 on discharge time, discontinue fluids on February 16 after 72 hours of hydration Monitor BMP/magnesium Continue home Zanaflex twice daily Acute COPD exacerbation S/p IV methylprednisone DuoNebs scheduled Doxycycline in the hospital, prednisone 40 mg course Acute on Cronic diastolic CHF mild acute pulmonary edema Dyspnea Ejection fraction 65% with grade 1 diastolic dysfunction on 09/2024 Chest x-ray on February 16 showing pulmonary edema pending final radiology read Start patient on p.o. Lasix 40 mg once daily in the hospital, discharged on 20 mg p.o. daily Chronic kidney disease stage III Avoid nephrotoxic agent Baseline GFR are around 35 Current GFR 34 Will monitor electrolyte and kidney function Elevated mild troponin, suspect demand ischemia secondary to rhabdomyolysis Level 100 repeated 99 Monitor cardiac enzyme Continue aspirin beta-saira Hypothyroidism Continue levothyroxine 175 mcg daily Last TSH 0.31 in September/2022 will order new TSH Hyperlipidemia Continue statin Morbid obesity BMI 35.9 Encourage lifestyle modification On discharge day patient feeling better, denies any pain or worsening shortness of breath, no nausea or diarrhea or fever Vital signs stable Oxygen stable on nasal cannula Discharge Medications Discharge Medications New Medications Details acetaminophen 325 MG tablet Commonly known as: TYLENOL Take 2 (two) tablets (650 mg total) by mouth every 4 (four) hours as needed . Quantity: 30 tablet predniSONE 20 MG tablet Commonly known as: DELTASONE Start taking on: February 19, 2025 Take 2 (two) tablets (40 mg total) by mouth daily with breakfast Start: 02/19/25. Quantity: 6 tablet sulfamethoxazole-trimethoprim 800-160 mg per tablet Commonly known as: BACTRIM DS,SEPTRA DS Take 1 (one) tablet by mouth every 12 (twelve) hours . Quantity: 4 tablet Modified Medications Details furosemide 20 MG tablet Commonly known as: LASIX What changed: when to take this Take 1 (one) tablet (20 mg total) by mouth daily . Quantity: 30 tablet tiZANidine 4 MG tablet Commonly known as: ZANAFLEX What changed: Another medication with the same name was removed. Continue taking this medication, and follow the directions you see here. Take 3 (three) tablets (12 mg total) by mouth at bedtime In addition to taking 2 tablets in the morning . Medications To Continue Details * albuterol 0.63 mg/3 mL nebulizer solution Commonly known as: ACCUNEB Take 3 mL (0.63 mg total) by nebulization every 6 (six) hours as needed for wheezing . * albuterol 90 mcg/actuation inhaler Inhale 2 (two) puffs every 6 (six) hours as needed for wheezing . aspirin 81 mg chewable tablet Chew and Swallow 1 (one) tablet (81 mg total) daily . cetirizine 10 MG tablet Commonly known as: ZYRTEC Take 1 (one) tablet (10 mg total) by mouth daily . cholecalciferol (vitamin D3) 1,000 unit tablet Take 1 (one) tablet (1,000 Units total) by mouth daily . Dojolvi 8.3 kcal/mL Liqd Generic drug: triheptanoin Take 20 mL by mouth 3 (three) times a day . doxepin 100 MG capsule Commonly known as: SINEQUAN Take 1 (one) capsule (100 mg total) by mouth nightly . DULoxetine 60 MG capsule Commonly known as: CYMBALTA Take 1 (one) capsule (60 mg total) by mouth daily . ferrous sulfate 325 (65 FE) MG tablet Take 1 (one) tablet (325 mg total) by mouth daily with breakfast . levothyroxine 175 MCG tablet Commonly known as: SYNTHROID, LEVOTHROID Take 1 (one) tablet (175 mcg total) by mouth daily in the evening . lisinopriL 20 MG tablet Commonly known as: PRINIVIL,ZESTRIL Take 1 (one) tablet (20 mg total) by mouth daily . lovastatin 10 MG tablet Commonly known as: (more content not included)...[facility]04-15-2025 Hospital course Narrative* Jossie Alcazar MD - 02/18/2025 11:52 AM EDT Images from the original note were not included. [facility] [place] -- [facility] Radha Shafer Admitted: 02/13/2025 Discharge Date: 02/18/25 PCP Handoff Recommended Outpatient Testing Follow-up with PCP Results Pending At Discharge None Clinical Summary Radha Shafer is a 64 y.o. female patient of , Physician with history of COPD on home oxygen, struct of sleep apnea, hypertension, chronic kidney disease, hypothyroidism, CPT deficiency presented to [facility] on 02/13/2025 with shortness of breath. Gastroenteritis, resolved Diarrhea, norovirus and E. Coli, resolved Recent norovirus infection Stool PCR showing norovirus and enteropathogenic E. coli Status post IV fluid Zofran as needed This patient had norovirus infection with other family members a week ago, subsequently symptoms improved but now she has recurrent diarrhea, her stool PCR showing enteropathogenic E. coli, start thepatient on Bactrim and treat for 7 days CPT Deficiency with exacerbation secondary to gastroenteritis Muscle aches Rhabdomyolysis Elevated CK above 20,000 one presented IV hydration with dextrose 10%/normal saline genetic specialist at [employer] [facility] [employer] CK improving 500 on discharge time, discontinue fluids on February 16 after 72 hours of hydration Monitor BMP/magnesium Continue home Zanaflex twice daily Acute COPD exacerbation S/p IV methylprednisone DuoNebs scheduled Doxycycline in the hospital, prednisone 40 mg course Acute on Cronic diastolic CHF mild acute pulmonary edema Dyspnea Ejection fraction 65% with grade 1 diastolic dysfunction on 09/2024 Chest x-ray on February 16 showing pulmonary edema pending final radiology read Start patient on p.o. Lasix 40 mg once daily in the hospital, discharged on 20 mg p.o. daily Chronic kidney disease stage III Avoid nephrotoxic agent Baseline GFR are around 35 Current GFR 34 Will monitor electrolyte and kidney function Elevated mild troponin, suspect demand ischemia secondary to rhabdomyolysis Level 100 repeated 99 Monitor cardiac enzyme Continue aspirin beta-saira Hypothyroidism Continue levothyroxine 175 mcg daily Last TSH 0.31 in September/2022 will order new TSH Hyperlipidemia Continue statin Morbid obesity BMI 35.9 Encourage lifestyle modification On discharge day patient feeling better, denies any pain or worsening shortness of breath, no nausea or diarrhea or fever Vital signs stable Oxygen stable on nasal cannula Discharge Medications Discharge Medications New Medications Details acetaminophen 325 MG tablet Commonly known as: TYLENOL Take 2 (two) tablets (650 mg total) by mouth every 4 (four) hours as needed . Quantity: 30 tablet predniSONE 20 MG tablet Commonly known as: DELTASONE Start taking on: February 19, 2025 Take 2 (two) tablets (40 mg total) by mouth daily with breakfast Start: 02/19/25. Quantity: 6 tablet sulfamethoxazole-trimethoprim 800-160 mg per tablet Commonly known as: BACTRIM DS,SEPTRA DS Take 1 (one) tablet by mouth every 12 (twelve) hours . Quantity: 4 tablet Modified Medications Details furosemide 20 MG tablet Commonly known as: LASIX What changed: when to take this Take 1 (one) tablet (20 mg total) by mouth daily . Quantity: 30 tablet tiZANidine 4 MG tablet Commonly known as: ZANAFLEX What changed: Another medication with the same name was removed. Continue taking this medication, and follow the directions you see here. Take 3 (three) tablets (12 mg total) by mouth at bedtime In addition to taking 2 tablets in the morning . Medications To Continue Details * albuterol 0.63 mg/3 mL nebulizer solution Commonly known as: ACCUNEB Take 3 mL (0.63 mg total) by nebulization every 6 (six) hours as needed for wheezing . * albuterol 90 mcg/actuation inhaler Inhale 2 (two) puffs every 6 (six) hours as needed for wheezing . aspirin 81 mg chewable tablet Chew and Swallow 1 (one) tablet (81 mg total) daily . cetirizine 10 MG tablet Commonly known as: ZYRTEC Take 1 (one) tablet (10 mg total) by mouth daily . cholecalciferol (vitamin D3) 1,000 unit tablet Take 1 (one) tablet (1,000 Units total) by mouth daily . Dojolvi 8.3 kcal/mL Liqd Generic drug: triheptanoin Take 20 mL by mouth 3 (three) times a day . doxepin 100 MG capsule Commonly known as: SINEQUAN Take 1 (one) capsule (100 mg total) by mouth nightly . DULoxetine 60 MG capsule Commonly known as: CYMBALTA Take 1 (one) capsule (60 mg total) by mouth daily . ferrous sulfate 325 (65 FE) MG tablet Take 1 (one) tablet (325 mg total) by mouth daily with breakfast . levothyroxine 175 MCG tablet Commonly known as: SYNTHROID, LEVOTHROID Take 1 (one) tablet (175 mcg total) by mouth daily in the evening . lisinopriL 20 MG tablet Commonly known as: PRINIVIL,ZESTRIL Take 1 (one) tablet (20 mg total) by mouth daily . lovastatin 10 MG tablet Commonly known as: MEVACOR Take 1 (one) tablet (10 mg total) by mouth nightly . metoprolol tartrate 100 MG tablet Commonly known as: LOPRESSOR Take 1 (one) tablet (100 mg total) by mouth 2 (two) times a day . NIFEdipine 30 MG 24 hr tablet Commonly known as: ADALAT CC Take 1 (one) tablet (30 mg total) by mouth daily . omeprazole 40 MG capsule Commonly known as: PRILOSEC Take 1 (one) capsule (40 mg total) by mouth daily . oxygen Inhale 4 L/min as needed Per patient, only used when walking or with activity . Trelegy Ellipta 200-62.5-25 mcg Dsdv Generic drug: [id number] Inhale 1 (one) Inhalation daily . Quantity: 60 each * There are duplicate medications prescribed to the patient Stopped Medications tiZANidine 4 MG capsule Commonly known as: ZANAFLEX You also have another medication with the same name that you need to continue taking as instructed. Xifaxan 550 mg tablet Generic drug: rifAXIMin Physician(s) Follow Up: No follow-up provider specified. Condition at Discharge: Stable Disposition: Home I reviewed discharge recommendations with the patient in person. Patient instructions, including activity, were given to the patient/family at discharge. On day of discharge I saw Radha Shafer and spent: > 30 minutes on discharge. Completed by: Jossie Alcazar MD on 02/18/25, 11:52 AM documented in this [id number] Plan of care note* Plan of Care - Delmy Olmedo RN - 02/17/2025 3:43 PM EDT Problem: Actual or potential alteration in health Goal: Absence of healthcare acquired conditions Outcome: Partially Met Goal: Knowledge of Interdisciplinary Plan of Care Outcome: Partially Met Goal: Knowledge of Enviroment Outcome: Partially Met Problem: Pressure Injury, Risk of Goal: Absence of pressure injury Outcome: Partially Met Problem: Pain Goal: Reduced pain sensation Outcome: Partially Met Goal: Control of acute pain to acceptable level Outcome: Partially Met Goal: Able to cope with pain Outcome: Partially Met Goal: Able to achieve maximum level of physical functioning Outcome: Partially Met Goal: Able to achieve maximum level of psychosocial functioning Outcome: Partially Met [id number] Miscellaneous Notes* Plan of Care - Delmy Olmedo RN - 02/17/2025 3:43 PM EDT Problem: Actual or potential alteration in health Goal: Absence of healthcare acquired conditions Outcome: Partially Met Goal: Knowledge of Interdisciplinary Plan of Care Outcome: Partially Met Goal: Knowledge of Enviroment Outcome: Partially Met Problem: Pressure Injury, Risk of Goal: Absence of pressure injury Outcome: Partially Met Problem: Pain Goal: Reduced pain sensation Outcome: Partially Met Goal: Control of acute pain to acceptable level Outcome: Partially Met Goal: Able to cope with pain Outcome: Partially Met Goal: Able to achieve maximum level of physical functioning Outcome: Partially Met Goal: Able to achieve maximum level of psychosocial functioning Outcome: Partially Met * Plan of Care - Reema Juarez RN - 02/17/2025 2:08 AM EDT Problem: Actual or potential alteration in health Goal: Absence of healthcare acquired conditions Outcome: Partially Met Goal: Knowledge of Interdisciplinary Plan of Care Outcome: Partially Met Goal: Knowledge of Enviroment Outcome: Partially Met Problem: Pressure Injury, Risk of Goal: Absence of pressure injury Outcome: Partially Met Problem: Pain Goal: Reduced pain sensation Outcome: Partially Met Goal: Control of acute pain to acceptable level Outcome: Partially Met Goal: Able to cope with pain Outcome: Partially Met Goal: Able to achieve maximum level of physical functioning Outcome: Partially Met Goal: Able to achieve maximum level of psychosocial functioning Outcome: Partially Met * Plan of Care - Rachael Huffman RN - 02/16/2025 1:36 PM EDT Problem: Actual or potential alteration in health Goal: Absence of healthcare acquired conditions Outcome: Partially Met Goal: Knowledge of Interdisciplinary Plan of Care Outcome: Partially Met Goal: Knowledge of Enviroment Outcome: Partially Met Problem: Pressure Injury, Risk of Goal: Absence of pressure injury Outcome: Partially Met * Plan of Care - Rachael Huffman RN - 02/15/2025 11:58 AM EDT Problem: Actual or potential alteration in health Goal: Absence of healthcare acquired conditions Outcome: Partially Met Goal: Knowledge of Interdisciplinary Plan of Care Outcome: Partially Met Goal: Knowledge of Enviroment Outcome: Partially Met * Quick Note - Elisabeth Francis RN - 02/15/2025 5:35 AM EDT Called to room to see pt. Entered room pt alert, oriented appears to be comfortable. Able to answerquestions appropriately. Last bp 77/31 hr 176 with sup optimal positioning in bed. Assigned RN at bedside. Fsbs 211. Discussed low readings and need to reposition for comfort and more accurate readings. pt did readjusted herself up in bed and laid flat on her back, with hob remains elevated. Bp now98/52 hr 60. Additional iv inserted into left forearm. * Quick Note - Rae Hairston, RUIZ - 02/14/2025 10:54 PM EDT Received a call from Dr. Anjana Campbell (Genetics Attending at [facility]). Concerned that Rhabdo might need different management d/t genetic deficiency. They recommend D10.9NS @ 150 ml/hr as this deficiency also needs increased calories. 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 The # to reach her is - main office of physician is [phone]. Dr Anjana Campbell (genetics). Tell whomever answers the phone that you are calling about this pt. The interventions I performed were - Dc'd current MIV - D10NS @150 ml/hr - Communication order placed to pay close attention to IV site as this can be irritating when run for a long time 0540: Pt with hypotension noted on read- see above note from aminta RN. - 1 L NS bolus Additional care provided: * Plan of Care - Delmy Olmedo RN - 02/14/2025 3:27 PM EDT POC intiated Problem: Actual or potential alteration in health Goal: Absence of healthcare acquired conditions Outcome: Partially Met Goal: Knowledge of Interdisciplinary Plan of Care Outcome: Partially Met Goal: Knowledge of Enviroment Outcome: Partially Met * ED Procedure Note - Astrid Sanders DO - 02/13/2025 7:13 PM EDTAssociated Order(s): Repeat EKG Repeat EKG Date/Time: 02/13/2025 5:57 PM Performed by: Astrid Sanders DO Authorized by: Astrid Sanders DO Interpreted by ED attending physician Comparison: compared with previous ECG from 02/13/2025 Similar to previous ECG Comparison to previous ECG: This is a repeat EKG. Reassuring without acute dynamic changes, no STEMI. NSR. SC interval 144 ms. QRS 90 ms. BPM: 94 Clinical impression: normal ECG * ED Procedure Note - Astrid Sanders DO - 02/13/2025 4:33 PM EDTAssociated Order(s): EKG 12-lead EKG 12-lead Date/Time: 02/13/2025 3:51 PM Performed by: Astrid Sanders DO Authorized by: Astrid Sanders DO Interpreted by ED attending physician Comparison: compared with previous ECG from 09/21/2024 Similar to previous ECG Rhythm: sinus rhythm and sinus tachycardia BPM: 101 Clinical impression: abnormal ECG and sinus tachycardia Comments: Sinus tachycardia. SC interval 140 ms. QRS [address] and T wave abnormality. No STEMI. documented in this [id number] NoteS PROGRESS NOTE Assessment and Plan Radha Shafer is a 64 y.o. female patient of , [facility] with history of COPD on home oxygen, struct of sleep apnea, hypertension, chronic kidney disease, hypothyroidism, CPT deficiency presented to [facility] on 02/13/2025 with shortness of breath. Gastroenteritis, resolved Diarrhea, norovirus and E. Coli, resolved Recent norovirus infection Stool PCR showing norovirus and enteropathogenic E. coli Status post IV fluid Zofran as needed This patient had norovirus infection with other family members a week ago, subsequently symptoms improved but now she has recurrent diarrhea, her stool PCR showing enteropathogenic E. coli, will start the patient on Bactrim and treat for 5 days CPT Deficiency with exacerbation secondary to gastroenteritis Muscle aches Rhabdomyolysis Elevated CK above 20,000 one presented IV hydration with dextrose 10%/normal saline genetic specialist at [employer] [facility] [employer] CK improving, discontinue fluids on February 16 after 72 hours of hydration Monitor BMP/magnesium Continue home Zanaflex twice daily Acute COPD exacerbation S/p IV methylprednisone DuoNebs scheduled Doxycycline, prednisone Acute on Cronic diastolic CHF mild acute pulmonary edema Dyspnea Ejection fraction 65% with grade 1 diastolic dysfunction on 09/2024 Chest x-ray on February 16 showing pulmonary edema pending final radiology read Start patient on p.o. Lasix 40 mg once daily Chronic kidney disease Avoid nephrotoxic agent Baseline GFR are around 35 Current GFR 34 Will monitor electrolyte and kidney function Elevated mild troponin, suspect demand ischemia secondary to rhabdomyolysis Level 100 repeated 99 Monitor cardiac enzyme Continue aspirin beta-saira Hypothyroidism Continue levothyroxine 175 mcg daily Last TSH 0.31 in September/2022 will order new TSH Hyperlipidemia Continue statin Obesity Encourage lifestyle modification Resolved acute medical issues Discharge Planning Medically Stable for Discharge Date: February 18 Patient requires continued hospitalization due to: Gastroenteritis resolved, possible discharge tomorrow Discharge Location: home Quality Measures DVT Prophylaxis: heparin subcutaneous Diaz Catheter: absent Code Status full code Primary Contact Information Subjective Patient denies any complaints today Increase activity Possible discharge to home tomorrow Objective BP (!) 157/79 Pulse 63 Temp 97.7 degrees F (36.5 degrees C) (Oral) Resp 18 Ht 5' 5 Wt 98 kg (216 lb) SpO2 98% BMI 35.94 kg/m Physical Examination General Appearance: alert; acutely ill appearing; in moderate acute distress HEENT: Head- normocephalic; Eyes- EOMI, sclera anicteric; Throat- mucous membranes moist Cardiovascular: regular rate and rhythm; normal S1, S2; no murmurs, rubs, clicks or gallops; peripheral edema absent Respiratory: lungs clear to auscultation; without wheezes, rales or rhonchi; on nasal cannula Abdomen: soft, non-tender, non-distended Neurological: oriented x 3; normal speech; no focal findings or movement disorder noted Musculoskeletal: no significant deformity or tenderness to palpation Skin: normal coloration Psych: normal mood and affect AUTHENTICATED BY LETITIA OBRIEN ON 02/17/2025 13:31:[address] [place] [address] 02-17-2025 Consult note* Brigette Govea RN - 02/17/2025 10:37 AM EDTAssociated Order(s): IP CONSULT TO CARE MANAGEMENT Care Management Consult Note Date: 02/17/2025 Time: 10:41 AM Patient Name: Radha Shafer Date of : 1960 Reason for Consult: Discharge needs Discharge Plan: D/C Disposition: Home Reason for Choice: Patient/Family preference Plan A: Home Discharging Transportation Plan: Transportation Type: Auto Discharge Plan Status: Per chart review, Dr Russell noted plan for discharge today. CM will continue to follow. Assessment and Background Information: CM ASSESSMENT Introduced self to patient; CM Services explained; pt agreeable to CM assessment. LIVING ARRANGEMENTS: Patient lives with her daughter in 2 story private residence with basement . Entry into home has no steps which pt can navigate. Pt lives on first floor with need to access shower 2nd floor. Pt does not need to access basement ADL'S: Performs all primary ADLs independently, i.e., bathing, toileting, continence, dressing, feeding, transfering. Food preparation, house keeping and shopping completed by pt's daughter and granddaughter. Pt placing shopping order on line and picks up . TRANSPORTATION: Pt does drive and does have a working vehicle. Transportation assistance provided by pt's daughter or granddaughter. Pt's grand daughter will transport pt home at time of discharge as appropriate. FINANCES: Pt aware this admission insurance coverage is listed as [facility]NA[facility] MEDICARE/[employer] DUAL COMPLETE (O SNP) and [place] as a secondary insurance. Pt denies transportation, medication or food insecurity. Pt denies any concerns relating to obtaining medications or follow up medical care. DISCHARGE CARE RESOURCES: Pt has Hui Whitehead as PCP. The patient is not currently receiving home health services.. Pt's daughter as teachable zoo caretaker. Pt does not have services with [facility] such as [facility]/ [facility]. CM will continue to follow this visit. DME: As listed Living Arrangements: Children Support Systems: Children, Family members Assistance Needed: no Type of Residence: Private residence Prior to Admission Home Care Services: No Type of Current Home Care Services: Oxygen Current Home Equipment: Other (Comment), Oxygen (Electric scooter, 4L/ [place]) Holistic Assessment Medication adherence problem:: No History of falls in last 6 months:: (!) Yes (one, tripped over dog) Family aware of the patient's advance care planning wishes:: No Do you have any cultural/spiritual connections or beliefs that would impact how we deliver your care?: No Chronic pain:: (!) Yes Location of chronic pain:: back and muscle pain Chronic pain timing:: Intermittent Limitation of routine activities due to chronic pain:: Yes [id number] Consult note* Brigette Govea RN - 02/17/2025 10:37 AM EDT Associated Order(s): IP CONSULT TO CARE MANAGEMENT Care Management Consult Note Date: 02/17/2025 Time: 10:41 AM Patient Name: Radha Shafer Date of : 1960 Reason for Consult: Discharge needs Discharge Plan: D/C Disposition: Home Reason for Choice: Patient/Family preference Plan A: Home Discharging Transportation Plan: Transportation Type: Auto Discharge Plan Status: Per chart review, Dr Russell noted plan for discharge today. CM will continue to follow. Assessment and Background Information: CM ASSESSMENT Introduced self to patient; CM Services explained; pt agreeable to CM assessment. LIVING ARRANGEMENTS: Patient lives with her daughter in 2 story private residence with basement . Entry into home has no steps which pt can navigate. Pt lives on first floor with need to access shower 2nd floor. Pt does not need to access basement ADL'S: Performs all primary ADLs independently, i.e., bathing, toileting, continence, dressing, feeding, transfering. Food preparation, house keeping and shopping completed by pt's daughter and granddaughter. Pt placing shopping order on line and picks up . TRANSPORTATION: Pt does drive and does have a working vehicle. Transportation assistance provided by pt's daughter or granddaughter. Pt's grand daughter will transport pt home at time of discharge as appropriate. FINANCES: Pt aware this admission insurance coverage is listed as [facility]IC[facility]HMO SNP) and MEDICAID/[place] as a secondary insurance. Pt denies transportation, medication or food insecurity. Pt denies any concerns relating to obtaining medications or follow up medical care. DISCHARGE CARE RESOURCES: Pt has Hui Whitehead as PCP. The patient is not currently receiving home health services.. Pt's daughter as teachable zoo caretaker. Pt does not have services with [facility]. CM will continue to follow this visit. DME: As listed Living Arrangements: Children Support Systems: Children, Family members Assistance Needed: no Type of Residence: Private residence Prior to Admission Home Care Services: No Type of Current Home Care Services: Oxygen Current Home Equipment: Other (Comment), Oxygen (Electric scooter, 4L/ [place]) Holistic Assessment Medication adherence problem:: No History of falls in last 6 months:: (!) Yes (one, tripped over dog) Family aware of the patient's advance care planning wishes:: No Do you have any cultural/spiritual connections or beliefs that would impact how we deliver your care?: No Chronic pain:: (!) Yes Location of chronic pain:: back and muscle pain Chronic pain timing:: Intermittent Limitation of routine activities due to chronic pain:: Yes documented in this [id number] Plan of care note* Plan of Care - Reema Juarez RN - 02/17/2025 2:08 AM EDT Problem: Actual or potential alteration in health Goal: Absence of healthcare acquired conditions Outcome: Partially Met Goal: Knowledge of Interdisciplinary Plan of Care Outcome: Partially Met Goal: Knowledge of Enviroment Outcome: Partially Met Problem: Pressure Injury, Risk of Goal: Absence of pressure injury Outcome: Partially Met Problem: Pain Goal: Reduced pain sensation Outcome: Partially Met Goal: Control of acute pain to acceptable level Outcome: Partially Met Goal: Able to cope with pain Outcome: Partially Met Goal: Able to achieve maximum level of physical functioning Outcome: Partially Met Goal: Able to achieve maximum level of psychosocial functioning Outcome: Partially Met [id number] Plan of care note* Plan of Care - Rachael Huffman RN - 02/16/2025 1:36 PM EDT Problem: Actual or potential alteration in health Goal: Absence of healthcare acquired conditions Outcome: Partially Met Goal: Knowledge of Interdisciplinary Plan of Care Outcome: Partially Met Goal: Knowledge of Enviroment Outcome: Partially Met Problem: Pressure Injury, Risk of Goal: Absence of pressure injury Outcome: Partially Met [id number] NoteHMS PROGRESS NOTE Assessment and Plan Radha Shafer is a 64 y.o. female patient of , Physician with history of COPD on home oxygen, struct of sleep apnea, hypertension, chronic kidney disease, hypothyroidism, CPT deficiency presented to [facility] on 02/13/2025 with shortness of breath. Gastroenteritis, improving Diarrhea, norovirus and E. coli Recent norovirus infection Stool PCR showing norovirus and enteropathogenic E. coli Treated with IV hydration Zofran as needed This patient had norovirus infection with other family members a week ago, subsequently symptoms improved but now she has recurrent diarrhea, her stool PCR showing enteropathogenic E. coli, will start the patient on Bactrim and treat for 5 days CPT Deficiency with exacerbation secondary to gastroenteritis Muscle aches Rhabdomyolysis Elevated CK above 20,000 one presented IV hydration with dextrose 10%/normal saline genetic specialist at [employer] [facility] CK improving, discontinue fluids on February 16 after 72 hours of hydration Monitor BMP/magnesium Continue home Zanaflex twice daily Acute COPD exacerbation S/p IV methylprednisone DuoNebs scheduled Doxycycline, prednisone Acute on Cronic diastolic CHF mild acute pulmonary edema Dyspnea Ejection fraction 65% with grade 1 diastolic dysfunction on 09/2024 Chest x-ray on February 16 showing pulmonary edema pending final radiology read Start Lasix 20 mg IV twice daily for 3 doses on February 16 Continue beta-saira Chronic kidney disease Avoid nephrotoxic agent Baseline GFR are around 35 Current GFR 34 Will monitor electrolyte and kidney function Elevated mild troponin, suspect demand ischemia secondary to rhabdomyolysis Level 100 repeated 99 Monitor cardiac enzyme Continue aspirin beta-saira Hypothyroidism Continue levothyroxine 175 mcg daily Last TSH 0.31 in September/2022 will order new TSH Hyperlipidemia Continue statin Obesity Encourage lifestyle modification Resolved acute medical issues Discharge Planning Medically Stable for Discharge Date: February 17 Patient requires continued hospitalization due to: Initial presentation gastroenteritis and rhabdomyolysis which improved with fluids but now fluid overloaded so we will diurese today and tomorrow and treat E. coli with Bactrim given ongoing diarrhea Discharge Location: home Quality Measures DVT Prophylaxis: heparin subcutaneous Diaz Catheter: absent Code Status full code Primary Contact Information Subjective Shortness of breath Chest tightness Diarrhea 2 episodes this morning Objective BP (!) 180/84 Pulse 75 Temp 97.9 degrees F (36.6 degrees C) (Oral) Resp 18 Ht 5' 5 Wt 98 kg (216 lb) SpO2 94% BMI 35.94 kg/m Physical Examination General Appearance: alert; acutely ill appearing; in moderate acute distress HEENT: Head- normocephalic; Eyes- EOMI, sclera anicteric; Throat- mucous membranes moist Cardiovascular: regular rate and rhythm; normal S1, S2; no murmurs, rubs, clicks or gallops; peripheral edema absent Respiratory: lungs clear to auscultation; without wheezes, rales or rhonchi; on nasal cannula Abdomen: soft, non-tender, non-distended Neurological: oriented x 3; normal speech; no focal findings or movement disorder noted Musculoskeletal: no significant deformity or tenderness to palpation Skin: normal coloration Psych: normal mood and affect AUTHENTICATED BY OLGA RUSSELL, ON 02/16/2025 12:46:50[facility] 02-15-2025 NoteS PROGRESS NOTE Assessment and Plan Radha Shafer is a 64 y.o. female patient of , Physician with history of COPD on home oxygen, struct of sleep apnea, hypertension, chronic kidney disease, hypothyroidism, CPT deficiency presented to [facility] on 02/13/2025 with shortness of breath. 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 Muscle aches Rhabdomyolysis Elevated CK above 20,000 one presented IV hydration with dextrose 10%/normal saline genetic specialist at [employer] [facility] [employer] CK in the morning Monitor BMP/magnesium Continue home Zanaflex twice daily Acute COPD exacerbation S/p IV methylprednisone DuoNebs scheduled Doxycycline, prednisone Acute on Cronic diastolic CHF Ejection fraction 65% with grade 1 diastolic dysfunction on 09/2024 Received 1 dose of IV Lasix, discontinue, patient euvolemic and has diarrhea Continue beta-saira Chronic kidney disease Avoid nephrotoxic agent Baseline GFR are around 35 Current GFR 34 Will monitor electrolyte and kidney function Elevated mild troponin, suspect demand ischemia secondary to rhabdomyolysis Level 100 repeated 99 Monitor cardiac enzyme Continue aspirin beta-saira Hypothyroidism Continue levothyroxine 175 mcg daily Last TSH 0.31 in September/2022 will order new TSH Hyperlipidemia Continue statin Obesity Encourage lifestyle modification Resolved acute medical issues Discharge Planning Medically Stable for Discharge Date: February 16 Patient requires continued hospitalization due to: Shortness of breath, rahbdo, stool PCR rapid Discharge Location: home Quality Measures DVT Prophylaxis: heparin subcutaneous Diaz Catheter: absent Code Status full code Primary Contact Information Subjective Still having mild diffuse muscle pain Otherwise chronic shortness of breath No diarrhea no bowel movement colostomy follow-up with Objective BP 134/83 Pulse (!) 57 Temp 97.5 degrees F (36.4 degrees C) (Oral) Resp 16 Ht 5' 5 Wt 98 kg (216 lb) SpO2 100% BMI 35.94 kg/m Physical Examination General Appearance: alert; acutely ill appearing; in moderate acute distress HEENT: Head- normocephalic; Eyes- EOMI, sclera anicteric; Throat- mucous membranes moist Cardiovascular: regular rate and rhythm; normal S1, S2; no murmurs, rubs, clicks or gallops; peripheral edema absent Respiratory: lungs clear to auscultation; without wheezes, rales or rhonchi; on nasal cannula Abdomen: soft, non-tender, non-distended Neurological: oriented x 3; normal speech; no focal findings or movement disorder noted Musculoskeletal: no significant deformity or tenderness to palpation Skin: normal coloration Psych: normal mood and affect AUTHENTICATED BY OLGA RUSSELL ON 02/15/2025 12:52:[address] [place] [address] 02-15-2025 Plan of care note* Plan of Care - Rachael Huffman RN - 02/15/2025 11:58 AM EDT Problem: Actual or potential alteration in health Goal: Absence of healthcare acquired conditions Outcome: Partially Met Goal: Knowledge of Interdisciplinary Plan of Care Outcome: Partially Met Goal: Knowledge of Enviroment Outcome: Partially Met [id number] Progress note* Quick Note - Elisabeth Francis RN - 02/15/2025 5:35 AM EDT Called to room to see pt. Entered room pt alert, oriented appears to be comfortable. Able to answerquestions appropriately. Last bp 77/31 hr 176 with sup optimal positioning in bed. Assigned RN at bedside. Fsbs 211. Discussed low readings and need to reposition for comfort and more accurate readings. pt did readjusted herself up in bed and laid flat on her back, with hob remains elevated. Bp now98/52 hr 60. Additional iv inserted into left forearm. [id number] Progress note* Quick Note - Rae Hairston CNP - 02/14/2025 10:54 PM EDT Received a call from Dr. Anjana Campbell (Genetics Attending at [facility]). Concerned that Rhabdo might need different management d/t genetic deficiency. They recommend D10.9NS @ 150 ml/hr as this deficiency also needs increased calories. 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 The # to reach her is - main office of physician is [phone]. Dr Anjana Campbell (genetics). Tell whomever answers the phone that you are calling about this pt. The interventions I performed were - Dc'd current MIV - D10NS @150 ml/hr - Communication order placed to pay close attention to IV site as this can be irritating when run for a long time 0540: Pt with hypotension noted on read- see above note from aminta RN. - 1 L NS bolus Additional care provided: [facility] Work Phone: [phone] [facility] PROGRESS NOTE Assessment and Plan Radha Shafer is a 64 y.o. female patient of , Physician with history of COPD on home oxygen, struct of sleep apnea, hypertension, chronic kidney disease, hypothyroidism, CPT deficiency presented to [facility] on 02/13/2025 with shortness of breath. Gastroenteritis Diarrhea Recent norovirus infection Dehydration Obtain stool PCR IV hydration Zofran as needed CPT Deficiency with exacerbation secondary to gastroenteritis Muscle aches Rhabdomyolysis Elevated CK above 20,000 IV hydration with dextrose/half-normal saline for the next 24 hours CK in the morning Monitor BMP/magnesium Continue home Zanaflex twice daily Acute COPD exacerbation S/p IV methylprednisone DuoNebs scheduled Doxycycline, prednisone Acute on Cronic diastolic CHF Ejection fraction 65% with grade 1 diastolic dysfunction on 09/2024 Received 1 dose of IV Lasix, discontinue, patient euvolemic and has diarrhea Continue beta-saria Chronic kidney disease Avoid nephrotoxic agent Baseline GFR are around 35 Current GFR 34 Will monitor electrolyte and kidney function Elevated mild troponin, suspect demand ischemia secondary to rhabdomyolysis Level 100 repeated 99 Monitor cardiac enzyme Continue aspirin beta-saira Hypothyroidism Continue levothyroxine 175 mcg daily Last TSH 0.31 in September/2022 will order new TSH Hyperlipidemia Continue statin Obesity Encourage lifestyle modification Resolved acute medical issues Discharge Planning Medically Stable for Discharge Date: February 16 Patient requires continued hospitalization due to: Shortness of breath, rahbdo, stool PCR rapid Discharge Location: home Quality Measures DVT Prophylaxis: heparin subcutaneous Diaz Catheter: absent Code Status full code Primary Contact Information Subjective Shortness of breath improving She has muscle spasm in the lower extremities Noted diarrhea yesterday and inability to tolerate diet Objective BP (!) 161/89 Pulse 67 Temp 97.5 degrees F (36.4 degrees C) (Oral) Resp (!) 20 Ht 5' 5 Wt 98 kg (216 lb) SpO2 99% BMI 35.94 kg/m Physical Examination General Appearance: alert; acutely ill appearing; in moderate acute distress HEENT: Head- normocephalic; Eyes- EOMI, sclera anicteric; Throat- mucous membranes moist Cardiovascular: regular rate and rhythm; normal S1, S2; no murmurs, rubs, clicks or gallops; peripheral edema absent Respiratory: lungs clear to auscultation; without wheezes, rales or rhonchi; on nasal cannula Abdomen: soft, non-tender, non-distended Neurological: oriented x 3; normal speech; no focal findings or movement disorder noted Musculoskeletal: no significant deformity or tenderness to palpation Skin: normal coloration Psych: normal mood and affect AUTHENTICATED BY OLGA RUSSELL ON 02/14/2025 15:33:[address] [place] [address] 02-14-2025 Plan of care note* Plan of Care - Delmy Olmedo RN - 02/14/2025 3:27 PM EDT POC intiated Problem: Actual or potential alteration in health Goal: Absence of healthcare acquired conditions Outcome: Partially Met Goal: Knowledge of Interdisciplinary Plan of Care Outcome: Partially Met Goal: Knowledge of Enviroment Outcome: Partially Met [id number] Emergency department Note* Amelia Anderson RN - 02/14/2025 12:35 PM EDT Report called to [facility] for room 4714 [id number] Emergency department Note* Amelia Anderson RN - 02/14/2025 12:35 PM EDT Report called to [facility] for room 4714 * Fany De Leon - 02/14/2025 9:50 AM EDT Meal Tray delivered at this time. * Selena Simms RN - 02/14/2025 7:25 AM EDT Bed: 35 Expected date: Expected time: Means of arrival: Comments: RM 25 * Meaghan Butler RN - 02/14/2025 7:22 AM EDT ED Nurse To Nurse Bedside Report Chief Complaint Patient presents with Shortness of Breath Alert (+0) Vital Signs: Vitals: 02/14/25 0000 02/14/25 0030 02/14/25 0215 02/14/25 0430 BP: (!) 170/97 109/71 110/72 (!) 164/71 Pulse: 88 74 61 71 Resp: (!) 22 (!) 20 (!) 19 (!) 19 Temp: SpO2: 94% 98% 98% (!) 89% Weight: Height: Pain: Pain Assessment Pain Assessment Scale: 0-10 DVPRS 0-10 DVPRS: 0/10 Pain Location: Generalized Pain Descriptors: Heaviness, Aching Patient's stated pain goal (0-10 DVPRS): 0/10 Oxygen: liters/min via nasal cannula Current Needs Required 2 Telemetry:Nutrition Aides Teacher On: Yes LDAs: Peripheral IV 02/13/25 Anterior;Right Forearm (Active) Site Assessment Clean;Dry;Intact 02/13/25 1558 Line Status Blood return noted 02/13/25 1558 Continuous Infusions: dextrose 10% and 0.45% NaCl 1000ml infusion 150 mL/hr (02/14/25 0201) Mobility: good Fall Risk Scale Mobility: Ambulate with assist device Mentation: Alert and oriented x3 Elimination: Needs assist Prior Fall History: No Current Medications: None of the listed medications Fall Risk Score: 2 Fall Intervention: Call light within reach, Assist with ambulation * Meaghan Butler RN - 02/14/2025 6:19 AM EDT Hourly rounding assessment completed on the patient. [x] Patient updated on plan of care [x] All comfort needs addressed [x] Patient updated on duration of visit All questions answered, patient denies further needs. Call light within reach. * Meaghan Butler RN - 02/14/2025 5:30 AM EDT Hourly rounding assessment completed on the patient. [x] Patient updated on plan of care [x] All comfort needs addressed [x] Patient updated on duration of visit All questions answered, patient denies further needs. Call light within reach. * Meaghan Butler RN - 02/14/2025 4:28 AM EDT Hourly rounding assessment completed on the patient. [x] Patient updated on plan of care [x] All comfort needs addressed [x] Patient updated on duration of visit All questions answered, patient denies further needs. Call light within reach. * Meaghan Butler RN - 02/14/2025 3:30 AM EDT Hourly rounding assessment completed on the patient. [x] Patient updated on plan of care [x] All comfort needs addressed [x] Patient updated on duration of visit All questions answered, patient denies further needs. Call light within reach. * Meaghan Butler RN - 02/14/2025 2:44 AM EDT Hourly rounding assessment completed on the patient. [x] Patient updated on plan of care [x] All comfort needs addressed [x] Patient updated on duration of visit All questions answered, patient denies further needs. Call light within reach. * Meaghan Butler RN - 02/14/2025 1:30 AM EDT Hourly rounding assessment completed on the patient. [x] Patient updated on plan of care [x] All comfort needs addressed [x] Patient updated on duration of visit All questions answered, patient denies further needs. Call light within reach. * Meaghan Butler RN - 02/14/2025 12:03 AM EDT Hourly rounding assessment completed on the patient. [x] Patient updated on plan of care [x] All comfort needs addressed [x] Patient updated on duration of visit All questions answered, patient denies further needs. Call light within reach. * Meaghan Butler RN - 02/13/2025 11:16 PM EDT Hourly rounding assessment completed on the patient. [x] Patient updated on plan of care [x] All comfort needs addressed [x] Patient updated on duration of visit All questions answered, patient denies further needs. Call light within reach. * Mihaela Chavez RN - 02/13/2025 5:18 PM EDT Received call from Lab, states CPK result will be delayed d/t machine down for maintenance Dr Sanders updated * Astrid Sanders DO - 02/13/2025 4:07 PM EDT EMERGENCY MEDICINE PROVIDER NOTE WELCOME TO [facility] NAME: Radha Shafer AGE: 64 y.o. SEX: female : 1960 ENCOUNTER DATE: 02/13/25 CSN: [id number] PCP: Erin, Physician History of Presenting Illness/Medical Decision Making The history was obtained from the patient. Radha is a 64 y.o. female with a PMH as stated below, Primary Care Physician on file: Erin, Physician , who presents with a chief complaint of Shortness of Breath. Patient states that she has been having progressively worsening shortness of breath for 1 week. She states that her chest hurts, but not my actual chest, it is my lungs, my lungs hurt. Positive orthopnea. Symptoms described as a squeezing sensation. Patient was given 4 baby aspirin by EMS OPERATION AGENT. No nitroglycerin. Patient states that she was supposed to have an MRI of her heart, but did not go to her appointment because of ongoing chronic diarrhea and had to cancel her appointment. Denies any blood in her stool. Denies recent antibiotic use. History of CPT 2, has generalized body aches and muscle pain. Eating and drinking per normal. Denies vomiting. Denies fever. Physical Exam Vital Signs Reviewed Patient Vitals for the past 24 hrs: BP Temp Pulse Resp SpO2 Height Weight 02/13/25 2230 (!) 159/87 -- 87 (!) 23 96 % -- -- 02/13/25 2200 (!) 160/85 -- 89 (!) 19 96 % -- -- 02/13/25 2100 (!) 154/88 -- 89 (!) 24 97 % -- -- 02/13/25 2030 (!) 122/91 -- 92 (!) 26 97 % -- -- 02/13/25 1930 (!) 167/96 -- 94 (!) 23 95 % -- -- 02/13/25 1830 (!) 167/84 -- 90 (!) 24 97 % -- -- 02/13/25 1730 (!) 180/96 -- 94 18 98 % -- -- 02/13/25 1630 (!) 155/92 -- 96 (!) 21 98 % -- -- 02/13/25 1545 (!) 160/95 99.1 F (37.3 C) (!) 105 (!) 22 98 % 5' 5 98 kg (216 lb) Physical Exam Vitals and nursing note reviewed. Constitutional: General: She is awake. She is not in acute distress. Appearance: Normal appearance. She is ill-appearing. She is not toxic-appearing or diaphoretic. HENT: Head: Normocephalic and atraumatic. Right Ear: External ear normal. Left Ear: External ear normal. Nose: Nose normal. Mouth/Throat: Lips: [place]. Mouth: Mucous membranes are moist. Eyes: General: Lids are normal. No scleral icterus. Conjunctiva/sclera: Conjunctivae normal. Neck: Trachea: Phonation normal. Cardiovascular: Rate and Rhythm: Tachycardia present. Pulses: Normal pulses. Heart sounds: Normal heart sounds. Musculoskeletal: Cervical back: Normal range of motion and neck supple. No tenderness. Right lower leg: Edema present. Left lower leg: Edema present. Pulmonary: Effort: Pulmonary effort is normal. Tachypnea present. No accessory muscle usage or respiratory distress. Breath sounds: Normal air entry. No stridor. Wheezing and rales present. No rhonchi. Abdominal: General: Abdomen is flat. Bowel sounds are normal. Palpations: Abdomen is soft. Tenderness: There is no abdominal tenderness. There is no guarding or rebound. Skin: General: Skin is warm. Capillary Refill: Capillary refill takes less than 2 seconds. Neurological: General: No focal deficit present. Mental Status: She is alert and oriented to person, place, and time. Psychiatric: Attention and Perception: Attention and perception normal. Mood and Affect: Mood and affect normal. Speech: Speech normal. Behavior: Behavior normal. Behavior is cooperative. Wt Readings from Last 10 Encounters: 02/13/25 98 kg (216 lb) 11/12/24 104.3 kg (230 lb) 09/25/24 103 kg (227 lb 1.2 oz) 09/18/24 107.5 kg (237 lb) 09/02/24 107.5 kg (237 lb) 11/10/22 101.6 kg (224 lb) 09/24/22 102.7 kg (226 lb 8 oz) 09/08/22 101.6 kg (224 lb) 08/15/22 102.8 kg (226 lb 11.2 oz) 07/19/22 103.9 kg (229 lb) Clinical Results CTA Pulm Art and CT Abd Pelvis with IV contrast Final Result No CT evidence for pulmonary embolism. There is no evidence for thoracic aortic aneurysm or dissection. A cluster of small hazy nodular densities are seen in the posteroinferior right upper lobe, measuring up to 1 cm, suspicious for infectious/inflammatory process. Additional cluster of subcentimeter calcified and noncalcified nodules are seen within the lateral right upper lobe. No dense focal consolidation is seen. Workstation ID: [id number] XR Chest 1 View Final Result No acute cardiopulmonary abnormality. Workstation ID: [id number] Labs Reviewed BASIC METABOLIC PANEL - Abnormal; Notable for the following components: Result Value Chloride 95 (*) Glucose 128 (*) Creatinine 1.66 (*) eGFR 34 (*) All other components within normal limits Narrative: [facility] has implemented the eGFR calculation approach that does not have a coefficient for race that conforms to the NKF-ASN Task Force Recommendations. NT PRO BNP - Abnormal; Notable for the following components: NT-Pro BNP 3,931 (*) All other components within normal limits Narrative: Pride Study Cut-offs Rule In: < /= 50 Years >450 pg/mL 51 Years - 75 Years >900 pg/mL 76 Years - 99 Years >1800 pg/mL Rule Out: All patients <300 pg/mL TROPONIN X 2 (NOW AND REPEAT IN 2 HOURS) - Abnormal; Notable for the following components: Troponin T 100 (*) All other components within normal limits TROPONIN X 2 (NOW AND REPEAT IN 2 HOURS) - Abnormal; Notable for the following components: Troponin T 99 (*) All other components within normal limits CPK - Abnormal; Notable for the following components: Total CK 28,240 (*) All other components within normal limits Narrative: Manual dilution performed URINALYSIS - Abnormal; Notable for the following components: Protein, Urine 30 (*) Blood, Urine Large (*) Amorphous Crystals Few (*) All other components within normal limits Narrative: Microscopic examination is performed on all urinalysis samples and only positive findings are reported. The test for blood on the chemical analytic portion of urinalysis may also be positive due to hemoglobinuria and myoglobinuria and if red blood cells are present they are quantified by microscopic examination. POC VENOUS BLOOD GAS PANEL-PULM - RALS - Abnormal; Notable for the following components: pCO2, Itz 57.1 (*) Base Excess, Itz 3.4 (*) HCO3, Itz 30.7 (*) Carboxyhemoglobin 2.0 (*) Glucose 124 (*) Chloride 95 (*) All other components within normal limits CBC WITH AUTO DIFFERENTIAL - Abnormal; Notable for the following components: WBC 11.39 (*) MCH 25.5 (*) MCHC 30.4 (*) Neutrophils Abs 9.81 (*) All other components within normal limits COVID-19/INFLUENZA A,B MOLECULAR - Normal BLOOD CULTURE AEROBIC/ANAEROBIC - Normal BLOOD CULTURE AEROBIC/ANAEROBIC - Normal URINE AEROBIC CULTURE CLOSTRIDIOIDES DIFFICILE TESTING MRSA DNA AMPLIFIED PROBE CBC AND DIFFERENTIAL Narrative: The following orders were created for panel order CBC w/ Diff. Procedure Abnormality Status --------- ------ CBC Auto Differential[[id number]] Abnormal Final result Please view results for these tests on the individual orders. OBTAIN VENOUS BLOOD GASES AND PERFORM CPK TSH BASIC METABOLIC PANEL MAGNESIUM LEVEL CBC AND DIFFERENTIAL Narrative: The following orders were created for panel order CBC and Differential. Procedure Abnormality Status --------- ------ CBC Auto Differential[[id number]] Please view results for these tests on the individual orders. TROPONIN X 2 (NOW AND REPEAT IN 2 HOURS) TROPONIN X 2 (NOW AND REPEAT IN 2 HOURS) CBC WITH AUTO DIFFERENTIAL Past History Reviewed. Please see below documentation for further information. Past Medical History: Diagnosis Date Anxiety Arthritis Back pain Bladder problem incontinence Cancer ([facility]) thyroid Chronic pain disorder Colitis sigmoid COPD (chronic obstructive pulmonary disease) (HCC) 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HCC) Per pt. - Depression Diabetes (HCC) Diverticulosis Emphysema of lung (HCC) GERD (gastroesophageal reflux disease) Hepatic steatosis History of echocardiogram History of stress test Hypertension Hypothyroidism Kidney disease, chronic, stage I (GFR over 89 ml/min) stage 3 Lung nodule Neuromuscular disorder (HCC) 2016 I have cpt2 difficency Obesity On home oxygen therapy 2L via NC, PRN with walking, activity Scoliosis 03/2022 Sleep apnea noncompliant with CPAP; uses home oxygen Sleep apnea, obstructive Family History Problem Relation Age of Onset Heart disease Mother Lupus Mother Stroke Mother Arthritis Mother Heart attack Mother Heart disease Father Heart attack Father Hypertension Father Hypertension Sister Hypertension Brother Prostate cancer Brother Colon cancer Brother Hypertension Brother Prostate cancer Brother Colon cancer Brother Hypertension Brother Prostate cancer Brother Stomach cancer Brother Heart attack Maternal Grandmother Heart attack Maternal Grandfather Heart attack Paternal Grandmother Heart attack Paternal Grandfather Breast cancer Neg Hx Past Surgical History: Procedure Laterality Date ALTEMEIER PROCEDURE N/A 03/30/2022 Procedure: ALTEMEIER PROCEDURE; Surgeon: Jada Vargas MD; [place] [facility] [place]; Service: Colorectal CARDIAC CATHETERIZATION N/A 09/26/2022 Procedure: Coronary Angiogram; Surgeon: Tor Long MD; Location: [facility]; Service: Cardiovascular CARDIOVASCULAR STRESS TEST CHOLECYSTECTOMY COLONOSCOPY with biopsies COLONOSCOPY N/A 02/17/2022 Procedure: COLONOSCOPY; Surgeon: Jada Vargas MD; Location: [facility] [place]; Service: Colorectal EGD N/A 08/15/2022 Procedure: ESOPHAGOGASTRODUODENOSCOPY WITH BIOPSY; Surgeon: Tyshawn Santos MD; Location[facility]; Service: Gastroenterology GALLBLADDER HC LEFT HEART CATH N/A 09/26/2022 Procedure: Left Heart Cath; Surgeon: Tor Long MD; Location: [facility]; Service: Cardiovascular HYSTERECTOMY JOINT REPLACEMENT Left knee ORTHOPEDIC SURGERY r wrist surgery, left ankle, right rotator cuff ROTATOR CUFF REPAIR Right SIGMOIDOSCOPY FLEXIBLE N/A 06/23/2022 Procedure: SIGMOIDOSCOPY FLEXIBLE WITH BIOPSY; Surgeon: Tyshawn Santos MD; Location: [facility]; Service: Gastroenterology THYROIDECTOMY N/A 07/15/2015 Procedure: TOTAL THYROIDECTOMY; Surgeon: Lopez Alonso MD; Location: [facility] NEURO OR; Service: US ECHO TRANSTHORACIC FOLLOWUP LIMITED WRIST SURGERY Right Social History [1] ALLERGIES: Allergies reviewed Allergies[2] MEDICATIONS: Medications reviewed Medications Taking[3] Previous Medications Medication Sig albuterol (ACCUNEB) 0.63 mg/3 mL nebulizer solution Take 3 mL (0.63 mg total) by nebulization every6 (six) hours as needed for wheezing . albuterol (PROVENTIL HFA;VENTOLIN HFA) 90 mcg/actuation inhaler Inhale 2 (two) puffs every 6 (six) hours as needed for wheezing . aspirin 81 mg chewable tablet Chew and Swallow 1 (one) tablet (81 mg total) daily . cetirizine (ZYRTEC) 10 MG tablet Take 1 (one) tablet (10 mg total) by mouth daily . cholecalciferol, vitamin D3, 1,000 unit tablet Take 1 (one) tablet (1,000 Units total) by mouth daily . doxepin (SINEQUAN) 100 MG capsule Take 1 (one) capsule (100 mg total) by mouth nightly . DULoxetine (CYMBALTA) 60 MG capsule Take 1 (one) capsule (60 mg total) by mouth daily . ferrous sulfate 325 (65 FE) MG tablet Take 1 (one) tablet (325 mg total) by mouth daily with breakfast . pviievvkyij-svxyluhpt-mrkuviix (Trelegy Ellipta) 200-62.5-25 mcg DsDv Inhale 1 (one) Inhalation daily . furosemide (LASIX) 20 MG tablet Take 1 (one) tablet (20 mg total) by mouth 2 (two) times a day . levothyroxine (SYNTHROID, LEVOTHROID) 175 MCG tablet Take 1 (one) tablet (175 mcg total) by mouth daily in the evening . lisinopriL (PRINIVIL,ZESTRIL) 20 MG tablet Take 1 (one) tablet (20 mg total) by mouth daily . lovastatin (MEVACOR) 10 MG tablet Take 1 (one) tablet (10 mg total) by mouth nightly . metoprolol tartrate (LOPRESSOR) 100 MG tablet Take 1 (one) tablet (100 mg total) by mouth 2 (two) times a day . NIFEdipine (ADALAT CC) 30 MG 24 hr tablet Take 1 (one) tablet (30 mg total) by mouth daily . omeprazole (PRILOSEC) 40 MG capsule Take 1 (one) capsule (40 mg total) by mouth daily . oxygen Inhale 2 L/min as needed Per patient, only used when walking or with activity . tiZANidine (ZANAFLEX) 4 MG capsule Take 1 (one) capsule (4 mg total) by mouth 2 (two) times a day . tiZANidine (ZANAFLEX) 4 MG tablet Take 3 (three) tablets (12 mg total) by mouth at bedtime . triheptanoin (Dojolvi) 8.3 kcal/mL Liqd Take 20 mL by mouth 3 (three) times a day . Xifaxan 550 mg tablet Take 1 (one) tablet (550 mg total) by mouth 3 (three) times a day . Procedures (if completed) Procedures CRITICAL CARE TIME was provided for this patient for a total of 32 minutes. Critical care time is separate from any other billable procedures and family discussion time. This excludes seperately billable procedures and family discussion time. This includes vital signs and pulse oximetry monitoring, reviewing the nursing notes, blood draw for specimen, development of treatment plan with patient and/or surrogate, evaluation of patient's response to treatment, examination of patient, obtaining history from patient and/or surrogate, ordering and performing treatments and interventions, ordering and review of laboratory studies, ordering and review of radiographic studies, re- evaluation of patient's condition, consultation time, dictation/documentation time, with concern for potential clinicaldecompensation. 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 Hx of colonic polyps 01/07/2022 Rectal prolapse 03/01/2022 Diarrhea 06/21/2022 Non-traumatic rhabdomyolysis 06/25/2022 KRISTIN (acute kidney injury) 06/26/2022 CKD (chronic kidney disease) stage 3, GFR 30-59 ml/min (HCC) 06/26/2022 Pain of upper abdomen 07/19/2022 Nausea 07/19/2022 Acute hypercapnic respiratory failure (HCC) 09/02/2024 COPD exacerbation (HCC) 09/21/2024 Resolved Ambulatory Problems Diagnosis Date Noted No Resolved Ambulatory Problems Past Medical History: Diagnosis Date Anxiety Arthritis Back pain Bladder problem Cancer (HCC) Chronic pain disorder Colitis COPD (chronic obstructive pulmonary disease) (HCC) Depression Diabetes (HCC) Diverticulosis Emphysema of lung (HCC) GERD (gastroesophageal reflux disease) Hepatic steatosis History of echocardiogram History of stress test Hypothyroidism Kidney disease, chronic, stage I (GFR over 89 ml/min) Lung nodule Neuromuscular disorder (HCC) 2016 Obesity On home oxygen therapy Scoliosis 03/2022 Sleep apnea, obstructive I did personally review Radha's triage notes/past medical, surgical, social, and family Hx (when relevant). I did look at previous medical documentation, such as recent hospitalizations, office visits, and/or recent consultations with PCP/specialist. In this case, I also oversaw the her drug management by reviewing her medication list, allergy list, as well as the medications that I prescribed during the ED course and/or recommended (including, but not limited to, OTC medications such as acetaminophen, NSAIDs , etc). SDOH: Another factor that I considered in Radha's care was her Social Determinants of Health (SDOH). During this ED encounter, she did NOT appear to have any significant issues identified. ED MEDICATIONS GIVEN: Medications sodium chloride (PF) (NS) flush 5 mL (has no administration in time range) And sodium chloride 0.9% (NS) (has no administration in time range) nitroGLYCERIN (NITROSTAT) SL tablet 0.4 mg (has no administration in time range) piperacillin-tazobactam (ZOSYN) IVPB 3.375 g (premix) (3.375 g Intravenous New Bag 02/13/25 2141) fentaNYL (SUBLIMAZE) inj syringe 25 mcg (has no administration in time range) tiZANidine (ZANAFLEX) tablet 12 mg (12 mg Oral Given 02/13/25 5091) albuterol (PROVENTIL) 2.5 mg /3 mL (0.083 %) nebulizer solution 0.63 mg (has no administration in time range) albuterol inhaler 2 puff (has no administration in time range) aspirin chewable tablet 81 mg (has no administration in time range) doxepin (SINEQUAN) capsule 100 mg (100 mg Oral Given 02/13/252354) DULoxetine (CYMBALTA) DR capsule 60 mg (has no administration in time range) tiotropium bromide (SPIRIVA RESPIMAT) 2.5 mcg/actuation inhaler 2 puff (has no administration in time range) And mometasone-formoterol (DULERA) 200-5 mcg/actuation inhaler 2 puff (has no administration in time range) levothyroxine (SYNTHROID, LEVOTHROID) tablet 175 mcg (175 mcg Oral Given 02/13/252354) lisinopriL (PRINIVIL,ZESTRIL) tablet 20 mg (has no administration in time range) atorvastatin (LIPITOR) tablet 10 mg (10 mg Oral Given 02/13/252354) metoprolol tartrate (LOPRESSOR) tablet 100 mg (100 mg Oral Given 02/13/252354) NIFEdipine (PROCARDIA XL) 24 hr tablet 30 mg (has no administration in time range) pantoprazole (PROTONIX) EC tablet 40 mg (has no administration in time range) furosemide (LASIX) injection 40 mg (has no administration in time range) sodium chloride (PF) (NS) flush 5 mL (has no administration in time range) And sodium chloride (PF) (NS) flush 5 mL (5 mL Intravenous Given 02/13/252304) And sodium chloride 0.9% (NS) (has no administration in time range) heparin (porcine) injection 5,000 Units (5,000 Units Subcutaneous Given 02/13/252354) acetaminophen (TYLENOL) tablet 650 mg (has no administration in time range) ondansetron (ZOFRAN-ODT) disintegrating tablet 4 mg (has no administration in time range) Or ondansetron (ZOFRAN) injection 4 mg (has no administration in time range) senna-docusate (SENNA-S) 8.6-50 mg per tablet 1 tablet (has no administration in time range) naloxone (NARCAN) injection 0.1 mg (has no administration in time range) And naloxone (NARCAN) injection 0.4 mg (has no administration in time range) morphine injection 2-4 mg (has no administration in time range) methylPREDNISolone sod suc(PF) (SOLU-medrol) 40 mg (has no administration in time range) doxycycline (VIBRAMYCIN) 100 mg in sodium chloride 0.9 % (NS) 100 mL IVPB (has no administration intime range) dextrose 10% and 0.45% NaCl 1000ml infusion (has no administration in time range) sodium chloride 0.9% (NS) bolus 500 mL (0 mL Intravenous Stopped 02/13/25 171) ipratropium-albuteroL (DUO-NEB) 0.5-2.5 mg/3 ml nebulizer solution 3 mL (3 mL Inhalation Given 02/13/25 174) methylPREDNISolone sod suc(PF) (SOLU-medrol) Injection 60 mg (60 mg Intravenous Given 02/13/25 1800) sodium chloride (PF) (NS) 0.9 % contrast line flush 10 mL (10 mL Intravenous Given 02/13/251720) And sodium chloride (PF) (NS) 0.9 % contrast line flush 80 mL (80 mL Intravenous Given 02/13/25 172) iopamidoL (ISOVUE-370) 370 mg iodine /mL (76 %) injection 75 mL (75 mL Intravenous Contrast Administered 02/13/251719) piperacillin-tazobactam (ZOSYN) IVPB 4.5 g (premix) (0 g Intravenous Stopped 02/13/251829) vancomycin (VANCOCIN) 2000 mg in sodium chloride 0.9% 500 mL IVPB (0 mg Intravenous Stopped ) furosemide (LASIX) injection 20 mg (20 mg Intravenous Given 02/13/251917) MDM/ED COURSE: BP (!) 159/87 Pulse 87 Temp 99.1 F (37.3 C) Resp (!) 23 Ht 5' 5 Wt 98 kg (216 lb) KzQ196% BMI 35.94 kg/m In brief, patient is a very pleasant 64-year-old female with a PMH as stated above, who presents tot ED chief complaint of progressive worsening shortness of breath for the past 1 week as well as generalized bodyaches and myalgias. Upon arrival patient was slightly tachycardic at 105 bpm, tachypneic at 22 breaths/min, over not hypoxemic on her home supplemental oxygen level at 3 L NC, normothermic, hemodynamically stable without hypotension. On exam she does appear ill, over nontoxic-appearing, no acute respiratory distress, she is protecting her airway. Overall ED workup concerning for anacute on chronic CHF exacerbation given her elevated BNP as well as possible pulmonary infectious fi ndings concerning for underlying pneumonia. Patient was given IV antibiotics to treat for infectious findings as well as 20 mg IV Lasix to assist with diuresis. CT scan negative for acute pulmonary embolism. Patient clinically does not appear to be in cardiac tamponade. Negative COVID-19/influenza testing. Urinalysis with large blood, but no bacteria, low suspicion for UTI. Renal function at baseline, patient is not in acute renal failure, potassium reassuring. No significant electrolyte derangements require emergent temporization. Glucose reassuring. No pneumothorax seen on CT imaging. Slight wheezing appreciated upon lung auscultation, patient was given DuoNebs as well as IV corticosteroids for concerns for an acute on chronic COPD exacerbation. See ED course below for further information. Of note, given the patient's known history of CPT 2 I did obtain a CPK level and did provide 500 ccIVF, unfortunately engineering laboratory technician had called ED charge nurse to inform us that the machine is currently not operating, CPK level pending. However, in my medical opinion with clinical information available to me at this time I do not feel continuous IVF resuscitation is warranted given the patient clinically appears volume overloaded in the setting of a CHF exacerbation. ED Course as of 02/13/25 2357 Gege Feb 13, 2025 1618 WBC(!): 11.39 [ZW] 1618 Hemoglobin: 13.0 Reviewed and reassuring. No evidence of anemia. [ZW] 1634 Lactic Acid: 1.5 [ZW] 1716 Informed by ED sap trainer that lab team had called to inform us that the CPK machine is currently down for an extensive period of time, expected to be operating this evening. [ZW] 1724 XR Chest 1 View IMPRESSION: No acute cardiopulmonary abnormality. [ZW] 1844 Troponin x 2 (Now and Repeat in 2 hours)(!!) Repeat troponin downtrending, overall reassuring. Likely demand ischemia in nature. Repeat EKG obtained at this time reassuring as well, no acute dynamic changes, NSR, no STEMI. [ZW] 1845 Evidence of leukocytosis as well as tachycardia and tachypnea, positive SIRS criteria, septic workup initiated that includes IV broad-spectrum antibiotics as well as blood and urine cultures. I did withhold 30 cc/kg of per sepsis protocol given the patient's acute on chronic respiratory failure and dyspnea presentation as well as elevated BNP concerning for volume overload. Patient was givena total of 500 cc IVF, remained hemodynamically stable without hypotension, low suspicion for septic shock. No lactic acidosis, low suspicion for severe sepsis as well. [ZW] [address] Abd Pelvis with IV contrast IMPRESSION: No CT evidence for pulmonary embolism. There is no evidence for thoracic aortic aneurysm or dissection. A cluster of small hazy nodular densities are seen in the posteroinferior right upper lobe, measuring up to 1 cm, suspicious for infectious/inflammatory process. Additional cluster of subcentimeter calcified and noncalcified nodules are seen within the lateral right upper lobe. No dense focal consolidation is seen. [ZW] 4514 Update: Elevated CPK at 28k, given the patient's history of CPT2 she was initiated on D10 halfNS at 1.5 maintenance. Hospitalist notified regarding lab finding and plan, Dr. Trevino acknowledged. [ZW] ED Course User Index [ZW] Astrid Sanders, DO The patient will require admission to the hospital for further evaluation and management. The patient was agreeable to this plan. The patient was treated symptomatically and remained stable throughout their ED course. The patient is appropriate for transfer to the floor and was signed out to the accepting hospital service to assume care. Shared Decision Making (SDM): Utilized by explaining the results and plan of care for disposition and next steps of care with the patient and/or family. Potential impact of patient's medical/surgicalcomorbidities were assessed and considered when determining the treatment course and outcome. Discussed options for treatment with or without prescription medications. IMPRESSION: 1. Acute on chronic respiratory failure, unspecified whether with hypoxia or hypercapnia (HCC) 2. Acute on chronic congestive heart failure, unspecified heart failure type (HCC) 3. SIRS (systemic inflammatory response syndrome) (HCC) 4. Pneumonia 5. CKD (chronic kidney disease) 6. Acute exacerbation of chronic obstructive pulmonary disease (COPD) (HCC) 7. Elevated CPK 8. 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HCC) 9. Myalgia Discussed with: Hospitalist ED Disposition ED Disposition Hospitalize Condition -- Comment Reason for inpatient over two midnights: IV lasix . . Astrid Sanders DO ED Attending Physician [facility] (Please note that portions of this note may have been completed with a voice recognition program. 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 Social Drivers of Health Financial Resource Strain: Medium Risk (06/03/2024) Received from [facility] Overall Financial Resource Strain (CARDIA) Difficulty of Paying Living Expenses: Somewhat hard Food Insecurity: No Food Insecurity (09/21/2024) Hunger Vital Sign Worried About Running Out of Food in the Last Year: Never true Ran Out of Food in the Last Year: Never true Transportation Needs: No Transportation Needs (09/21/2024) PRAPARE - Transportation Lack of Transportation (Medical): No Lack of Transportation (Non-Medical): No Housing Stability: High Risk (09/21/2024) Housing Stability Vital Sign Unable to Pay for Housing in the Last Year: Yes Number of Times Moved in the Last Year: 1 Homeless in the Last Year: No [2] Allergies Allergen Reactions Penicillins Unknown and Other (See Comments) Was told as a child that she is allergic, but has never taken it to know the reaction. Childhood reaction Was told as a child that she is allergic, but has never taken it to know the reaction. Vancomycin Rash [3] No outpatient medications have been marked as taking for the 02/13/25 encounter (Hospital Encounter). Astrid Sanders DO 02/13/25 2357 * Astrid Connolly RN - 02/13/2025 3:40 PM EDT Pt reports sob and chest pain with hx of copd. Pt was given asa and duoneb treatment. Pt reports feeling much better after duoneb * Marina Prado RN - 02/13/2025 3:40 PM EDT Bed: 25 Expected date: Expected time: Means of arrival: Comments: Nick documented in this [id number] Emergency department Note* Fany De Leon - 02/14/2025 9:50 AM EDT Meal Tray delivered at this time. [id number] Emergency department Note* Selena Simms RN - 02/14/2025 7:25 AM EDT Bed: 35 Expected date: Expected time: Means of arrival: Comments: RM 25 [id number] Emergency department Note* Meaghan Butler RN - 02/14/2025 7:22 AM EDT ED Nurse To Nurse Bedside Report Chief Complaint Patient presents with Shortness of Breath Alert (+0) Vital Signs: Vitals: 02/14/25 0000 02/14/25 0030 02/14/25 0215 02/14/25 0430 BP: (!) 170/97 109/71 110/72 (!) 164/71 Pulse: 88 74 61 71 Resp: (!) 22 (!) 20 (!) 19 (!) 19 Temp: SpO2: 94% 98% 98% (!) 89% Weight: Height: Pain: Pain Assessment Pain Assessment Scale: 0-10 DVPRS 0-10 DVPRS: 0/10 Pain Location: Generalized Pain Descriptors: Heaviness, Aching Patient's stated pain goal (0-10 DVPRS): 0/10 Oxygen: liters/min via nasal cannula Current Needs Required 2 Telemetry:Nutrition Aides Teacher On: Yes LDAs: Peripheral IV 02/13/25 Anterior;Right Forearm (Active) Site Assessment Clean;Dry;Intact 02/13/25 155 Line Status Blood return noted 02/13/25 1558 Continuous Infusions: dextrose 10% and 0.45% NaCl 1000ml infusion 150 mL/hr (02/14/25 0201) Mobility: good Fall Risk Scale Mobility: Ambulate with assist device Mentation: Alert and oriented x3 Elimination: Needs assist Prior Fall History: No Current Medications: None of the listed medications Fall Risk Score: 2 Fall Intervention: Call light within reach, Assist with ambulation [id number] Emergency department Note* Meaghan Butler RN - 02/14/2025 6:19 AM EDT Hourly rounding assessment completed on the patient. [x] Patient updated on plan of care [x] All comfort needs addressed [x] Patient updated on duration of visit All questions answered, patient denies further needs. Call light within reach. [id number] Emergency department Note* Meaghan Butler RN - 02/14/2025 5:30 AM EDT Hourly rounding assessment completed on the patient. [x] Patient updated on plan of care [x] All comfort needs addressed [x] Patient updated on duration of visit All questions answered, patient denies further needs. Call light within reach. [id number] Emergency department Note* Meaghan Butler RN - 02/14/2025 4:28 AM EDT Hourly rounding assessment completed on the patient. [x] Patient updated on plan of care [x] All comfort needs addressed [x] Patient updated on duration of visit All questions answered, patient denies further needs. Call light within reach. [id number] Emergency department Note* Meaghan Butler RN - 02/14/2025 3:30 AM EDT Hourly rounding assessment completed on the patient. [x] Patient updated on plan of care [x] All comfort needs addressed [x] Patient updated on duration of visit All questions answered, patient denies further needs. Call light within reach. [id number] Emergency department Note* Meaghan Butler RN - 02/14/2025 2:44 AM EDT Hourly rounding assessment completed on the patient. [x] Patient updated on plan of care [x] All comfort needs addressed [x] Patient updated on duration of visit All questions answered, patient denies further needs. Call light within reach. [id number] Emergency department Note* Meaghan Butler RN - 02/14/2025 1:30 AM EDT Hourly rounding assessment completed on the patient. [x] Patient updated on plan of care [x] All comfort needs addressed [x] Patient updated on duration of visit All questions answered, patient denies further needs. Call light within reach. [id number] Emergency department Note* Meaghan Butler RN - 02/14/2025 12:03 AM EDT Hourly rounding assessment completed on the patient. [x] Patient updated on plan of care [x] All comfort needs addressed [x] Patient updated on duration of visit All questions answered, patient denies further needs. Call light within reach. [id number] Emergency department Note* Meaghan Butler RN - 02/13/2025 11:16 PM EDT Hourly rounding assessment completed on the patient. [x] Patient updated on plan of care [x] All comfort needs addressed [x] Patient updated on duration of visit All questions answered, patient denies further needs. Call light within reach. [id number] History and physical note* Susan Thakur MD - 02/13/2025 8:20 PM EDT [facility] [place] [facility] -- [facility] Patient Name: Radha Shafer : 1960 MR #: [id number] Admit Date: 02/13/2025 Physicians: Erin, Physician (Family); No ref. provider found (Referring) Radha Shafer is a 64 y.o. female patient of Erin, Physician with history of COPD on home oxygen, struct of sleep apnea, hypertension, chronic kidney disease, hypothyroidism, CPT deficiency presented to [facility] on 02/13/2025 with shortness of breath. Shortness of breath due to acute COPD exacerbation Start Solu-Medrol 40 every 8 DuoNeb every 6 as needed Broad-spectrum antibiotics Doxycycline 100 IV twice daily pain management Continue with oxygen Acute on chronic diastolic CHF Ejection fraction 65% with grade 1 diastolic dysfunction on 09/2024 Switch Lasix to 40 IV twice daily. Continue beta-saira Chronic kidney disease Avoid nephrotoxic agent Baseline GFR are around 35 Current GFR 34 Will monitor electrolyte and kidney function Elevated mild troponin Level 100 repeated 99 Monitor cardiac enzyme Continue aspirin beta-saira Hypothyroidism Continue levothyroxine 175 mcg daily Last TSH 0.31 in September/2022 will order new TSH Hyperlipidemia Continue statin CPT deficiency CPK chronically elevated I will order CK in the morning Obesity Encourage lifestyle modification Residence prior to admission: house or apartment Was patient transferred from outlying hospital or ED no Quality Measures DVT Prophylaxis: heparin subcutaneous Diaz Catheter: absent Medication Reconciliation: Verified Admitted with these risk variables:CHF and Chronic Kidney Disease. Please see assessment and plan for further details. Estimated Date of Discharge greater than 2 midnights Code Status Full Code; code status verified on 02/13/2025 with patient (capacity intact) Chief Complaint shortness of breath History of Present Illness 64-year-old female with past medical history of COPD on home oxygen, obstructive sleep apnea, hypertension, chronic kidney disease, hypothyroidism, CBD deficiency came because of shortness of breath for more than 1 week get worse over the last 2 days even with breathing treatment, also complaining of chest tightness, troponin mildly high, GFR at baseline, no blood in the urine or in the stool, she was here in September/2024 for COPD exacerbation, she using oxygen around 3 L at home 24 hours a day, complaining of mild leg swelling, she keeps asking about her CPK results since she has CPT deficiency Past Medical History Past Medical History: Diagnosis Date Anxiety Arthritis Back pain Bladder problem incontinence Cancer (HCC) thyroid Chronic pain disorder Colitis sigmoid COPD (chronic obstructive pulmonary disease) (HCC) 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[facility]) Per pt. - Depression Diabetes (HCC) Diverticulosis Emphysema of lung (HCC) GERD (gastroesophageal reflux disease) Hepatic steatosis History of echocardiogram History of stress test Hypertension Hypothyroidism Kidney disease, chronic, stage I (GFR over 89 ml/min) stage 3 Lung nodule Neuromuscular disorder ([facility]) 2015 I have cpt2 difficency Obesity On home oxygen therapy 2L via NC, PRN with walking, activity Scoliosis 03/2022 Sleep apnea noncompliant with CPAP; uses home oxygen Sleep apnea, obstructive Past Surgical History Past Surgical History: Procedure Laterality Date ALTEMEIER PROCEDURE N/A 03/30/2022 Procedure: ALTEMEIER PROCEDURE; Surgeon: Jada Vargas MD; [place] [facility]; Service: Colorectal CARDIAC CATHETERIZATION N/A 09/26/2022 Procedure: Coronary Angiogram; Surgeon: Tor Long MD; Location: [facility]; Service: Cardiovascular CARDIOVASCULAR STRESS TEST CHOLECYSTECTOMY COLONOSCOPY with biopsies COLONOSCOPY N/A 02/17/2022 Procedure: COLONOSCOPY; Surgeon: Jada Vargas MD; Location: [facility] [place]; Service: Colorectal EGD N/A 08/15/2022 Procedure: ESOPHAGOGASTRODUODENOSCOPY WITH BIOPSY; Surgeon: Tyshawn Santos MD; Location: Endo; Service: Gastroenterology GALLBLADDER HC LEFT HEART CATH N/A 09/26/2022 Procedure: Left Heart Cath; Surgeon: Tor Long MD; Location: [facility]; Service: Cardiovascular HYSTERECTOMY JOINT REPLACEMENT Left knee ORTHOPEDIC SURGERY r wrist surgery, left ankle, right rotator cuff ROTATOR CUFF REPAIR Right SIGMOIDOSCOPY FLEXIBLE N/A 06/23/2022 Procedure: SIGMOIDOSCOPY FLEXIBLE WITH BIOPSY; Surgeon: Tyshawn Santos MD; Location: Endo; Service: Gastroenterology THYROIDECTOMY N/A 07/15/2015 Procedure: TOTAL THYROIDECTOMY; Surgeon: Lopez Alonso MD; Location: [facility] NEURO OR; Service: US ECHO TRANSTHORACIC FOLLOWUP LIMITED WRIST SURGERY Right Family History Family History Problem Relation Age of Onset Heart disease Mother Lupus Mother Stroke Mother Arthritis Mother Heart attack Mother Heart disease Father Heart attack Father Hypertension Father Hypertension Sister Hypertension Brother Prostate cancer Brother Colon cancer Brother Hypertension Brother Prostate cancer Brother Colon cancer Brother Hypertension Brother Prostate cancer Brother Stomach cancer Brother Heart attack Maternal Grandmother Heart attack Maternal Grandfather Heart attack Paternal Grandmother Heart attack Paternal Grandfather Breast cancer Neg Hx Social History Tobacco Use History[1] Social History Substance and Sexual Activity Alcohol Use No Social History Substance and Sexual Activity Drug Use Yes Frequency: 7.0 times per week Types: Marijuana Comment: currently using daily for pain and depression. Allergy Information I have reviewed the patient's allergies. Penicillins and Vancomycin Home Medications Home medications were reviewed. Review Of Systems All relevant systems have been reviewed and are negative except as noted in HPI or below Physical Examination BP (!) 167/96 Pulse 94 Temp 99.1 F (37.3 C) Resp (!) 23 Ht 5' 5 Wt 98 kg (216 lb) [id number]% BMI 35.94 kg/m General Appearance: alert; acutely ill appearing; in mild acute distress HEENT: Head- normocephalic; Eyes- EOMI, sclera anicteric; Throat- mucous membranes moist Cardiovascular: regular rate and rhythm; peripheral edema absent Respiratory: lungs clear to auscultation; without wheezes, rales or rhonchi; on nasal cannula Abdomen: soft, non-tender, non-distended Neurological: oriented x 3; normal speech; no focal findings or movement disorder noted Musculoskeletal: no significant deformity or tenderness to palpation Skin: normal coloration Psych: normal mood and affect [1] Social History Tobacco Use Smoking Status Former Current packs/day: 0.00 Average packs/day: 1 pack/day for 20.0 years (20.0 ttl pk-yrs) Types: Cigarettes Start date: 07/10/1993 Quit date: 07/10/2013 Years since quittin.6 Smokeless Tobacco Never [id number] [facility] -- [facility] Patient Name: Radha Shafer : 1960 MR #: [id number] Admit Date: 02/13/2025 Physicians: Erin, Physician (Family); No ref. provider found (Referring) Radha Shafer is a 64 y.o. female patient of Erin Physician with history of COPD on home oxygen, struct of sleep apnea, hypertension, chronic kidney disease, hypothyroidism, CPT deficiency presented to [facility] on 02/13/2025 with shortness of breath. Shortness of breath due to acute COPD exacerbation Start Solu-Medrol 40 every 8 DuoNeb every 6 as needed Broad-spectrum antibiotics Doxycycline 100 IV twice daily pain management Continue with oxygen Acute on chronic diastolic CHF Ejection fraction 65% with grade 1 diastolic dysfunction on 09/2024 Switch Lasix to 40 IV twice daily. Continue beta-saira Chronic kidney disease Avoid nephrotoxic agent Baseline GFR are around 35 Current GFR 34 Will monitor electrolyte and kidney function Elevated mild troponin Level 100 repeated 99 Monitor cardiac enzyme Continue aspirin beta-saira Hypothyroidism Continue levothyroxine 175 mcg daily Last TSH 0.31 in September/2022 will order new TSH Hyperlipidemia Continue statin CPT deficiency CPK chronically elevated I will order CK in the morning Obesity Encourage lifestyle modification Residence prior to admission: house or apartment Was patient transferred from outlying hospital or ED no Quality Measures DVT Prophylaxis: heparin subcutaneous Diaz Catheter: absent Medication Reconciliation: Verified Admitted with these risk variables:CHF and Chronic Kidney Disease. Please see assessment and plan for further details. Estimated Date of Discharge greater than 2 midnights Code Status Full Code; code status verified on 02/13/2025 with patient (capacity intact) Chief Complaint shortness of breath History of Present Illness 64-year-old female with past medical history of COPD on home oxygen, obstructive sleep apnea, hypertension, chronic kidney disease, hypothyroidism, CBD deficiency came because of shortness of breath for more than 1 week get worse over the last 2 days even with breathing treatment, also complaining of chest tightness, troponin mildly high, GFR at baseline, no blood in the urine or in the stool, she was here in September/2024 for COPD exacerbation, she using oxygen around 3 L at home 24 hours a day, complaining of mild leg swelling, she keeps asking about her CPK results since she has CPT deficiency Past Medical History Past Medical History: Diagnosis Date Anxiety Arthritis Back pain Bladder problem incontinence Cancer (HCC) thyroid Chronic pain disorder Colitis sigmoid COPD (chronic obstructive pulmonary disease) (HCC) 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HCC) Per pt. - Depression Diabetes (HCC) Diverticulosis Emphysema of lung (HCC) GERD (gastroesophageal reflux disease) Hepatic steatosis History of echocardiogram History of stress test Hypertension Hypothyroidism Kidney disease, chronic, stage I (GFR over 89 ml/min) stage 3 Lung nodule Neuromuscular disorder (HCC) 2015 I have cpt2 difficency Obesity On home oxygen therapy 2L via NC, PRN with walking, activity Scoliosis 03/2022 Sleep apnea noncompliant with CPAP; uses home oxygen Sleep apnea, obstructive Past Surgical History Past Surgical History: Procedure Laterality Date ALTEMEIER PROCEDURE N/A 03/30/2022 Procedure: ALTEMEIER PROCEDURE; Surgeon: Jada Vargas MD; [place] [facility] [place]; Service: Colorectal CARDIAC CATHETERIZATION N/A 09/26/2022 Procedure: Coronary Angiogram; Surgeon: Tor Long MD; Location: [facility]; Service: Cardiovascular CARDIOVASCULAR STRESS TEST CHOLECYSTECTOMY COLONOSCOPY with biopsies COLONOSCOPY N/A 02/17/2022 Procedure: COLONOSCOPY; Surgeon: Jada Vargas MD; [place] [facility]; Service: Colorectal EGD N/A 08/15/2022 Procedure: ESOPHAGOGASTRODUODENOSCOPY WITH BIOPSY; Surgeon: Tyshawn Santos MD; Location: Endo; Service: Gastroenterology GALLBLADDER HC LEFT HEART CATH N/A 09/26/2022 Procedure: Left Heart Cath; Surgeon: Tor Long MD; Location: [facility]; Service: Cardiovascular HYSTERECTOMY JOINT REPLACEMENT Left knee ORTHOPEDIC SURGERY r wrist surgery, left ankle, right rotator cuff ROTATOR CUFF REPAIR Right SIGMOIDOSCOPY FLEXIBLE N/A 06/23/2022 Procedure: SIGMOIDOSCOPY FLEXIBLE WITH BIOPSY; Surgeon: Tyshawn Santos MD; Location: Endo; Service: Gastroenterology THYROIDECTOMY N/A 07/15/2015 Procedure: TOTAL THYROIDECTOMY; Surgeon: Lopez Alonso MD; Location: [facility]; Service: US ECHO TRANSTHORACIC FOLLOWUP LIMITED WRIST SURGERY Right Family History Family History Problem Relation Age of Onset Heart disease Mother Lupus Mother Stroke Mother Arthrit (more content not included)...[facility]04-10-2025 History and physical note* Susan Thakur MD - 02/13/2025 8:20 PM EDT [facility] [place] [facility] -- [facility] Patient Name: Radha Shafer : 1960 MR #: [id number] Admit Date: 02/13/2025 Physicians: Erin, Physician (Family); No ref. provider found (Referring) Radha Shafer is a 64 y.o. female patient of Erin, Physician with history of COPD on home oxygen, struct of sleep apnea, hypertension, chronic kidney disease, hypothyroidism, CPT deficiency presented to [facility] on 02/13/2025 with shortness of breath. Shortness of breath due to acute COPD exacerbation Start Solu-Medrol 40 every 8 DuoNeb every 6 as needed Broad-spectrum antibiotics Doxycycline 100 IV twice daily pain management Continue with oxygen Acute on chronic diastolic CHF Ejection fraction 65% with grade 1 diastolic dysfunction on 09/2024 Switch Lasix to 40 IV twice daily. Continue beta-saira Chronic kidney disease Avoid nephrotoxic agent Baseline GFR are around 35 Current GFR 34 Will monitor electrolyte and kidney function Elevated mild troponin Level 100 repeated 99 Monitor cardiac enzyme Continue aspirin beta-saira Hypothyroidism Continue levothyroxine 175 mcg daily Last TSH 0.31 in September/2022 will order new TSH Hyperlipidemia Continue statin CPT deficiency CPK chronically elevated I will order CK in the morning Obesity Encourage lifestyle modification Residence prior to admission: house or apartment Was patient transferred from outlying hospital or ED no Quality Measures DVT Prophylaxis: heparin subcutaneous Diaz Catheter: absent Medication Reconciliation: Verified Admitted with these risk variables:CHF and Chronic Kidney Disease. Please see assessment and plan for further details. Estimated Date of Discharge greater than 2 midnights Code Status Full Code; code status verified on 02/13/2025 with patient (capacity intact) Chief Complaint shortness of breath History of Present Illness 64-year-old female with past medical history of COPD on home oxygen, obstructive sleep apnea, hypertension, chronic kidney disease, hypothyroidism, CBD deficiency came because of shortness of breath for more than 1 week get worse over the last 2 days even with breathing treatment, also complaining of chest tightness, troponin mildly high, GFR at baseline, no blood in the urine or in the stool, she was here in September/2024 for COPD exacerbation, she using oxygen around 3 L at home 24 hours a day, complaining of mild leg swelling, she keeps asking about her CPK results since she has CPT deficiency Past Medical History Past Medical History: Diagnosis Date Anxiety Arthritis Back pain Bladder problem incontinence Cancer (HCC) thyroid Chronic pain disorder Colitis sigmoid COPD (chronic obstructive pulmonary disease) (HCC) 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HCC) Per pt. - Depression Diabetes (HCC) Diverticulosis Emphysema of lung (HCC) GERD (gastroesophageal reflux disease) Hepatic steatosis History of echocardiogram History of stress test Hypertension Hypothyroidism Kidney disease, chronic, stage I (GFR over 89 ml/min) stage 3 Lung nodule Neuromuscular disorder (HCC) 2015 I have cpt2 difficency Obesity On home oxygen therapy 2L via NC, PRN with walking, activity Scoliosis 03/2022 Sleep apnea noncompliant with CPAP; uses home oxygen Sleep apnea, obstructive Past Surgical History Past Surgical History: Procedure Laterality Date ALTEMEIER PROCEDURE N/A 03/30/2022 Procedure: ALTEMEIER PROCEDURE; Surgeon: Jada Vargas MD; [place] [facility]; Service: Colorectal CARDIAC CATHETERIZATION N/A 09/26/2022 Procedure: Coronary Angiogram; Surgeon: Tor Long MD; Location: [facility]; Service: Cardiovascular CARDIOVASCULAR STRESS TEST CHOLECYSTECTOMY COLONOSCOPY with biopsies COLONOSCOPY N/A 02/17/2022 Procedure: COLONOSCOPY; Surgeon: Jada Vargas MD; [place]: [facility] [facility]; Service: Colorectal EGD N/A 08/15/2022 Procedure: ESOPHAGOGASTRODUODENOSCOPY WITH BIOPSY; Surgeon: Tyshawn Santos MD; Location: Endo; Service: Gastroenterology GALLBLADDER HC LEFT HEART CATH N/A 09/26/2022 Procedure: Left Heart Cath; Surgeon: Tor Long MD; Location: [facility]; Service: Cardiovascular HYSTERECTOMY JOINT REPLACEMENT Left knee ORTHOPEDIC SURGERY r wrist surgery, left ankle, right rotator cuff ROTATOR CUFF REPAIR Right SIGMOIDOSCOPY FLEXIBLE N/A 06/23/2022 Procedure: SIGMOIDOSCOPY FLEXIBLE WITH BIOPSY; Surgeon: Tyshawn Santos MD; Location: Endo; Service: Gastroenterology THYROIDECTOMY N/A 07/15/2015 Procedure: TOTAL THYROIDECTOMY; Surgeon: Lopez Alonso MD; Location: [facility]; Service: US ECHO TRANSTHORACIC FOLLOWUP LIMITED WRIST SURGERY Right Family History Family History Problem Relation Age of Onset Heart disease Mother Lupus Mother Stroke Mother Arthritis Mother Heart attack Mother Heart disease Father Heart attack Father Hypertension Father Hypertension Sister Hypertension Brother Prostate cancer Brother Colon cancer Brother Hypertension Brother Prostate cancer Brother Colon cancer Brother Hypertension Brother Prostate cancer Brother Stomach cancer Brother Heart attack Maternal Grandmother Heart attack Maternal Grandfather Heart attack Paternal Grandmother Heart attack Paternal Grandfather Breast cancer Neg Hx Social History Tobacco Use History[1] Social History Substance and Sexual Activity Alcohol Use No Social History Substance and Sexual Activity Drug Use Yes Frequency: 7.0 times per week Types: Marijuana Comment: currently using daily for pain and depression. Allergy Information I have reviewed the patient's allergies. Penicillins and Vancomycin Home Medications Home medications were reviewed. Review Of Systems All relevant systems have been reviewed and are negative except as noted in HPI or below Physical Examination BP (!) 167/96 Pulse 94 Temp 99.1 F (37.3 C) Resp (!) 23 Ht 5' 5 Wt 98 kg (216 lb) [id number]% BMI 35.94 kg/m General Appearance: alert; acutely ill appearing; in mild acute distress HEENT: Head- normocephalic; Eyes- EOMI, sclera anicteric; Throat- mucous membranes moist Cardiovascular: regular rate and rhythm; peripheral edema absent Respiratory: lungs clear to auscultation; without wheezes, rales or rhonchi; on nasal cannula Abdomen: soft, non-tender, non-distended Neurological: oriented x 3; normal speech; no focal findings or movement disorder noted Musculoskeletal: no significant deformity or tenderness to palpation Skin: normal coloration Psych: normal mood and affect [1] Social History Tobacco Use Smoking Status Former Current packs/day: 0.00 Average packs/day: 1 pack/day for 20.0 years (20.0 ttl pk-yrs) Types: Cigarettes Start date: 07/10/1993 Quit date: 07/10/2013 Years since quittin.6 Smokeless Tobacco Never documented in this [id number] Procedure note* ED Procedure Note - Astrid Sanders DO - 02/13/2025 7:13 PM EDTAssociated Order(s): Repeat EKG Repeat EKG Date/Time: 02/13/2025 5:57 PM Performed by: Astrid Sanders DO Authorized by: Astrid Sanders DO Interpreted by ED attending physician Comparison: compared with previous ECG from 02/13/2025 Similar to previous ECG Comparison to previous ECG: This is a repeat EKG. Reassuring without acute dynamic changes, no STEMI. NSR. SC interval 144 ms. QRS 90 ms. BPM: 94 Clinical impression: normal ECG [id number] Emergency department Note* Mihaela Chavez RN - 02/13/2025 5:18 PM EDT Received call from Lab, states CPK result will be delayed d/t machine down for maintenance Dr Sanders updated [id number] Procedure note* ED Procedure Note - Astrid Sanders DO - 02/13/2025 4:33 PM EDTAssociated Order(s): EKG 12-lead EKG 12-lead Date/Time: 02/13/2025 3:51 PM Performed by: Astrid Sanders DO Authorized by: Astrid Sanders DO Interpreted by ED attending physician Comparison: compared with previous ECG from 09/21/2024 Similar to previous ECG Rhythm: sinus rhythm and sinus tachycardia BPM: 101 Clinical impression: abnormal ECG and sinus tachycardia Comments: Sinus tachycardia. SC interval 140 ms. QRS [address] and T wave abnormality. No STEMI. [id number] Physician Emergency department Note* Astrid Sanders DO - 02/13/2025 4:07 PM EDT EMERGENCY MEDICINE PROVIDER NOTE WELCOME TO [facility] NAME: Radha Shafer AGE: 64 y.o. SEX: female : 1960 ENCOUNTER DATE: 02/13/25 CSN: [id number] PCP: Erin, Physician History of Presenting Illness/Medical Decision Making The history was obtained from the patient. Radha is a 64 y.o. female with a PMH as stated below, Primary Care Physician on file: No, Physician , who presents with a chief complaint of Shortness of Breath. Patient states that she has been having progressively worsening shortness of breath for 1 week. She states that her chest hurts, but not my actual chest, it is my lungs, my lungs hurt. Positive orthopnea. Symptoms described as a squeezing sensation. Patient was given 4 baby aspirin by EMS OPERATION AGENT. No nitroglycerin. Patient states that she was supposed to have an MRI of her heart, but did not go to her appointment because of ongoing chronic diarrhea and had to cancel her appointment. Denies any blood in her stool. Denies recent antibiotic use. History of CPT 2, has generalized body aches and muscle pain. Eating and drinking per normal. Denies vomiting. Denies fever. Physical Exam Vital Signs Reviewed Patient Vitals for the past 24 hrs: BP Temp Pulse Resp SpO2 Height Weight 02/13/25 2230 (!) 159/87 -- 87 (!) 23 96 % -- -- 02/13/25 2200 (!) 160/85 -- 89 (!) 19 96 % -- -- 02/13/25 2100 (!) 154/88 -- 89 (!) 24 97 % -- -- 02/13/25 2030 (!) 122/91 -- 92 (!) 26 97 % -- -- 02/13/25 1930 (!) 167/96 -- 94 (!) 23 95 % -- -- 02/13/25 1830 (!) 167/84 -- 90 (!) 24 97 % -- -- 02/13/25 1730 (!) 180/96 -- 94 18 98 % -- -- 02/13/25 1630 (!) 155/92 -- 96 (!) 21 98 % -- -- 02/13/25 1545 (!) 160/95 99.1 F (37.3 C) (!) 105 (!) 22 98 % 5' 5 98 kg (216 lb) Physical Exam Vitals and nursing note reviewed. Constitutional: General: She is awake. She is not in acute distress. Appearance: Normal appearance. She is ill-appearing. She is not toxic-appearing or diaphoretic. HENT: Head: Normocephalic and atraumatic. Right Ear: External ear normal. Left Ear: External ear normal. Nose: Nose normal. Mouth/Throat: Lips: [place]. Mouth: Mucous membranes are moist. Eyes: General: Lids are normal. No scleral icterus. Conjunctiva/sclera: Conjunctivae normal. Neck: Trachea: Phonation normal. Cardiovascular: Rate and Rhythm: Tachycardia present. Pulses: Normal pulses. Heart sounds: Normal heart sounds. Musculoskeletal: Cervical back: Normal range of motion and neck supple. No tenderness. Right lower leg: Edema present. Left lower leg: Edema present. Pulmonary: Effort: Pulmonary effort is normal. Tachypnea present. No accessory muscle usage or respiratory distress. Breath sounds: Normal air entry. No stridor. Wheezing and rales present. No rhonchi. Abdominal: General: Abdomen is flat. Bowel sounds are normal. Palpations: Abdomen is soft. Tenderness: There is no abdominal tenderness. There is no guarding or rebound. Skin: General: Skin is warm. Capillary Refill: Capillary refill takes less than 2 seconds. Neurological: General: No focal deficit present. Mental Status: She is alert and oriented to person, place, and time. Psychiatric: Attention and Perception: Attention and perception normal. Mood and Affect: Mood and affect normal. Speech: Speech normal. Behavior: Behavior normal. Behavior is cooperative. Wt Readings from Last 10 Encounters: 02/13/25 98 kg (216 lb) 11/12/24 104.3 kg (230 lb) 09/25/24 103 kg (227 lb 1.2 oz) 09/18/24 107.5 kg (237 lb) 09/02/24 107.5 kg (237 lb) 11/10/22 101.6 kg (224 lb) 09/24/22 102.7 kg (226 lb 8 oz) 09/08/22 101.6 kg (224 lb) 08/15/22 102.8 kg (226 lb 11.2 oz) 07/19/22 103.9 kg (229 lb) Clinical Results CTA Pulm Art and CT Abd Pelvis with IV contrast Final Result No CT evidence for pulmonary embolism. There is no evidence for thoracic aortic aneurysm or dissection. A cluster of small hazy nodular densities are seen in the posteroinferior right upper lobe, measuring up to 1 cm, suspicious for infectious/inflammatory process. Additional cluster of subcentimeter calcified and noncalcified nodules are seen within the lateral right upper lobe. No dense focal consolidation is seen. Workstation ID: [id number] XR Chest 1 View Final Result No acute cardiopulmonary abnormality. Workstation ID: [id number] Labs Reviewed BASIC METABOLIC PANEL - Abnormal; Notable for the following components: Result Value Chloride 95 (*) Glucose 128 (*) Creatinine 1.66 (*) eGFR 34 (*) All other components within normal limits Narrative: [facility] has implemented the eGFR calculation approach that does not have a coefficient for race that conforms to the NKF-ASN Task Force Recommendations. NT PRO BNP - Abnormal; Notable for the following components: NT-Pro BNP 3,931 (*) All other components within normal limits Narrative: Pride Study Cut-offs Rule In: < /= 50 Years >450 pg/mL 51 Years - 75 Years >900 pg/mL 76 Years - 99 Years >1800 pg/mL Rule Out: All patients <300 pg/mL TROPONIN X 2 (NOW AND REPEAT IN 2 HOURS) - Abnormal; Notable for the following components: Troponin T 100 (*) All other components within normal limits TROPONIN X 2 (NOW AND REPEAT IN 2 HOURS) - Abnormal; Notable for the following components: Troponin T 99 (*) All other components within normal limits CPK - Abnormal; Notable for the following components: Total CK 28,240 (*) All other components within normal limits Narrative: Manual dilution performed URINALYSIS - Abnormal; Notable for the following components: Protein, Urine 30 (*) Blood, Urine Large (*) Amorphous Crystals Few (*) All other components within normal limits Narrative: Microscopic examination is performed on all urinalysis samples and only positive findings are reported. The test for blood on the chemical analytic portion of urinalysis may also be positive due to hemoglobinuria and myoglobinuria and if red blood cells are present they are quantified by microscopic examination. POC VENOUS BLOOD GAS PANEL-PULM - RALS - Abnormal; Notable for the following components: pCO2, Itz 57.1 (*) Base Excess, Itz 3.4 (*) HCO3, Itz 30.7 (*) Carboxyhemoglobin 2.0 (*) Glucose 124 (*) Chloride 95 (*) All other components within normal limits CBC WITH AUTO DIFFERENTIAL - Abnormal; Notable for the following components: WBC 11.39 (*) MCH 25.5 (*) MCHC 30.4 (*) Neutrophils Abs 9.81 (*) All other components within normal limits COVID-19/INFLUENZA A,B MOLECULAR - Normal BLOOD CULTURE AEROBIC/ANAEROBIC - Normal BLOOD CULTURE AEROBIC/ANAEROBIC - Normal URINE AEROBIC CULTURE CLOSTRIDIOIDES DIFFICILE TESTING MRSA DNA AMPLIFIED PROBE CBC AND DIFFERENTIAL Narrative: The following orders were created for panel order CBC w/ Diff. Procedure Abnormality Status --------- ------ CBC Auto Differential[[id number]] Abnormal Final result Please view results for these tests on the individual orders. OBTAIN VENOUS BLOOD GASES AND PERFORM CPK TSH BASIC METABOLIC PANEL MAGNESIUM LEVEL CBC AND DIFFERENTIAL Narrative: The following orders were created for panel order CBC and Differential. Procedure Abnormality Status --------- ------ CBC Auto Differential[[id number]] Please view results for these tests on the individual orders. TROPONIN X 2 (NOW AND REPEAT IN 2 HOURS) TROPONIN X 2 (NOW AND REPEAT IN 2 HOURS) CBC WITH AUTO DIFFERENTIAL Past History Reviewed. Please see below documentation for further information. Past Medical History: Diagnosis Date Anxiety Arthritis Back pain Bladder problem incontinence Cancer (HCC) thyroid Chronic pain disorder Colitis sigmoid COPD (chronic obstructive pulmonary disease) (HCC) 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HCC) Per pt. - Depression Diabetes (HCC) Diverticulosis Emphysema of lung (HCC) GERD (gastroesophageal reflux disease) Hepatic steatosis History of echocardiogram History of stress test Hypertension Hypothyroidism Kidney disease, chronic, stage I (GFR over 89 ml/min) stage 3 Lung nodule Neuromuscular disorder (HCC) 2015 I have cpt2 difficency Obesity On home oxygen therapy 2L via NC, PRN with walking, activity Scoliosis 03/2022 Sleep apnea noncompliant with CPAP; uses home oxygen Sleep apnea, obstructive Family History Problem Relation Age of Onset Heart disease Mother Lupus Mother Stroke Mother Arthritis Mother Heart attack Mother Heart disease Father Heart attack Father Hypertension Father Hypertension Sister Hypertension Brother Prostate cancer Brother Colon cancer Brother Hypertension Brother Prostate cancer Brother Colon cancer Brother Hypertension Brother Prostate cancer Brother Stomach cancer Brother Heart attack Maternal Grandmother Heart attack Maternal Grandfather Heart attack Paternal Grandmother Heart attack Paternal Grandfather Breast cancer Neg Hx Past Surgical History: Procedure Laterality Date ALTEMEIER PROCEDURE N/A 03/30/2022 Procedure: ALTEMEIER PROCEDURE; Surgeon: Jada Vargas MD; [place] [facility] [facility]; Service: Colorectal CARDIAC CATHETERIZATION N/A 09/26/2022 Procedure: Coronary Angiogram; Surgeon: Tor Long MD; Location: [facility]; Service: Cardiovascular CARDIOVASCULAR STRESS TEST CHOLECYSTECTOMY COLONOSCOPY with biopsies COLONOSCOPY N/A 02/17/2022 Procedure: COLONOSCOPY; Surgeon: Jada Vargas MD; [place]: [facility] [place] [facility]; Service: Colorectal EGD N/A 08/15/2022 Procedure: ESOPHAGOGASTRODUODENOSCOPY WITH BIOPSY; Surgeon: Tyshawn Santos MD; Location: Endo; Service: Gastroenterology GALLBLADDER HC LEFT HEART CATH N/A 09/26/2022 Procedure: Left Heart Cath; Surgeon: Tor Long MD; Location: [facility]; Service: Cardiovascular HYSTERECTOMY JOINT REPLACEMENT Left knee ORTHOPEDIC SURGERY r wrist surgery, left ankle, right rotator cuff ROTATOR CUFF REPAIR Right SIGMOIDOSCOPY FLEXIBLE N/A 06/23/2022 Procedure: SIGMOIDOSCOPY FLEXIBLE WITH BIOPSY; Surgeon: Tyshawn Santos MD; Location: Endo; Service: Gastroenterology THYROIDECTOMY N/A 07/15/2015 Procedure: TOTAL THYROIDECTOMY; Surgeon: Lopez Alonso MD; Location: [facility]; Service: US ECHO TRANSTHORACIC FOLLOWUP LIMITED WRIST SURGERY Right Social History [1] ALLERGIES: Allergies reviewed Allergies[2] MEDICATIONS: Medications reviewed Medications Taking[3] Previous Medications Medication Sig albuterol (ACCUNEB) 0.63 mg/3 mL nebulizer solution Take 3 mL (0.63 mg total) by nebulization every6 (six) hours as needed for wheezing . albuterol (PROVENTIL HFA;VENTOLIN HFA) 90 mcg/actuation inhaler Inhale 2 (two) puffs every 6 (six) hours as needed for wheezing . aspirin 81 mg chewable tablet Chew and Swallow 1 (one) tablet (81 mg total) daily . cetirizine (ZYRTEC) 10 MG tablet Take 1 (one) tablet (10 mg total) by mouth daily . cholecalciferol, vitamin D3, 1,000 unit tablet Take 1 (one) tablet (1,000 Units total) by mouth daily . doxepin (SINEQUAN) 100 MG capsule Take 1 (one) capsule (100 mg total) by mouth nightly . DULoxetine (CYMBALTA) 60 MG capsule Take 1 (one) capsule (60 mg total) by mouth daily . ferrous sulfate 325 (65 FE) MG tablet Take 1 (one) tablet (325 mg total) by mouth daily with breakfast . ksboxivynet-lijdfcgxx-iguonjjv (Trelegy Ellipta) 200-62.5-25 mcg DsDv Inhale 1 (one) Inhalation daily . furosemide (LASIX) 20 MG tablet Take 1 (one) tablet (20 mg total) by mouth 2 (two) times a day . levothyroxine (SYNTHROID, LEVOTHROID) 175 MCG tablet Take 1 (one) tablet (175 mcg total) by mouth daily in the evening . lisinopriL (PRINIVIL,ZESTRIL) 20 MG tablet Take 1 (one) tablet (20 mg total) by mouth daily . lovastatin (MEVACOR) 10 MG tablet Take 1 (one) tablet (10 mg total) by mouth nightly . metoprolol tartrate (LOPRESSOR) 100 MG tablet Take 1 (one) tablet (100 mg total) by mouth 2 (two) times a day . NIFEdipine (ADALAT CC) 30 MG 24 hr tablet Take 1 (one) tablet (30 mg total) by mouth daily . omeprazole (PRILOSEC) 40 MG capsule Take 1 (one) capsule (40 mg total) by mouth daily . oxygen Inhale 2 L/min as needed Per patient, only used when walking or with activity . tiZANidine (ZANAFLEX) 4 MG capsule Take 1 (one) capsule (4 mg total) by mouth 2 (two) times a day . tiZANidine (ZANAFLEX) 4 MG tablet Take 3 (three) tablets (12 mg total) by mouth at bedtime . triheptanoin (Dojolvi) 8.3 kcal/mL Liqd Take 20 mL by mouth 3 (three) times a day . Xifaxan 550 mg tablet Take 1 (one) tablet (550 mg total) by mouth 3 (three) times a day . Procedures (if completed) Procedures CRITICAL CARE TIME was provided for this patient for a total of 32 minutes. Critical care time is separate from any other billable procedures and family discussion time. This excludes seperately billable procedures and family discussion time. This includes vital signs and pulse oximetry monitoring, reviewing the nursing notes, blood draw for specimen, development of treatment plan with patient and/or surrogate, evaluation of patient's response to treatment, examination of patient, obtaining history from patient and/or surrogate, ordering and performing treatments and interventions, ordering and review of laboratory studies, ordering and review of radiographic studies, re- evaluation of patient's condition, consultation time, dictation/documentation time, with concern for potential clinicaldecompensation. 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 Hx of colonic polyps 01/07/2022 Rectal prolapse 03/01/2022 Diarrhea 06/21/2022 Non-traumatic rhabdomyolysis 06/25/2022 KRISTIN (acute kidney injury) 06/26/2022 CKD (chronic kidney disease) stage 3, GFR 30-59 ml/min (HCC) 06/26/2022 Pain of upper abdomen 07/19/2022 Nausea 07/19/2022 Acute hypercapnic respiratory failure (HCC) 09/02/2024 COPD exacerbation ([facility]) 09/21/2024 Resolved Ambulatory Problems Diagnosis Date Noted No Resolved Ambulatory Problems Past Medical History: Diagnosis Date Anxiety Arthritis Back pain Bladder problem Cancer (HCC) Chronic pain disorder Colitis COPD (chronic obstructive pulmonary disease) (HCC) Depression Diabetes (HCC) Diverticulosis Emphysema of lung (HCC) GERD (gastroesophageal reflux disease) Hepatic steatosis History of echocardiogram History of stress test Hypothyroidism Kidney disease, chronic, stage I (GFR over 89 ml/min) Lung nodule Neuromuscular disorder ([facility]) 2016 Obesity On home oxygen therapy Scoliosis 03/2022 Sleep apnea, obstructive I did personally review Radha's triage notes/past medical, surgical, social, and family Hx (when relevant). I did look at previous medical documentation, such as recent hospitalizations, office visits, and/or recent consultations with PCP/specialist. In this case, I also oversaw the her drug management by reviewing her medication list, allergy list, as well as the medications that I prescribed during the ED course and/or recommended (including, but not limited to, OTC medications such as acetaminophen, NSAIDs , etc). SDOH: Another factor that I considered in Radha's care was her Social Determinants of Health (SDOH). During this ED encounter, she did NOT appear to have any significant issues identified. ED MEDICATIONS GIVEN: Medications sodium chloride (PF) (NS) flush 5 mL (has no administration in time range) And sodium chloride 0.9% (NS) (has no administration in time range) nitroGLYCERIN (NITROSTAT) SL tablet 0.4 mg (has no administration in time range) piperacillin-tazobactam (ZOSYN) IVPB 3.375 g (premix) (3.375 g Intravenous New Bag 02/13/252140) fentaNYL (SUBLIMAZE) inj syringe 25 mcg (has no administration in time range) tiZANidine (ZANAFLEX) tablet 12 mg (12 mg Oral Given 02/13/252354) albuterol (PROVENTIL) 2.5 mg /3 mL (0.083 %) nebulizer solution 0.63 mg (has no administration in time range) albuterol inhaler 2 puff (has no administration in time range) aspirin chewable tablet 81 mg (has no administration in time range) doxepin (SINEQUAN) capsule 100 mg (100 mg Oral Given 02/13/252354) DULoxetine (CYMBALTA) DR capsule 60 mg (has no administration in time range) tiotropium bromide (SPIRIVA RESPIMAT) 2.5 mcg/actuation inhaler 2 puff (has no administration in time range) And mometasone-formoterol (DULERA) 200-5 mcg/actuation inhaler 2 puff (has no administration in time range) levothyroxine (SYNTHROID, LEVOTHROID) tablet 175 mcg (175 mcg Oral Given 02/13/252354) lisinopriL (PRINIVIL,ZESTRIL) tablet 20 mg (has no administration in time range) atorvastatin (LIPITOR) tablet 10 mg (10 mg Oral Given 02/13/252354) metoprolol tartrate (LOPRESSOR) tablet 100 mg (100 mg Oral Given 02/13/252354) NIFEdipine (PROCARDIA XL) 24 hr tablet 30 mg (has no administration in time range) pantoprazole (PROTONIX) EC tablet 40 mg (has no administration in time range) furosemide (LASIX) injection 40 mg (has no administration in time range) sodium chloride (PF) (NS) flush 5 mL (has no administration in time range) And sodium chloride (PF) (NS) flush 5 mL (5 mL Intravenous Given 02/13/252304) And sodium chloride 0.9% (NS) (has no administration in time range) heparin (porcine) injection 5,000 Units (5,000 Units Subcutaneous Given 02/13/25 2355) acetaminophen (TYLENOL) tablet 650 mg (has no administration in time range) ondansetron (ZOFRAN-ODT) disintegrating tablet 4 mg (has no administration in time range) Or ondansetron (ZOFRAN) injection 4 mg (has no administration in time range) senna-docusate (SENNA-S) 8.6-50 mg per tablet 1 tablet (has no administration in time range) naloxone (NARCAN) injection 0.1 mg (has no administration in time range) And naloxone (NARCAN) injection 0.4 mg (has no administration in time range) morphine injection 2-4 mg (has no administration in time range) methylPREDNISolone sod suc(PF) (SOLU-medrol) 40 mg (has no administration in time range) doxycycline (VIBRAMYCIN) 100 mg in sodium chloride 0.9 % (NS) 100 mL IVPB (has no administration intime range) dextrose 10% and 0.45% NaCl 1000ml infusion (has no administration in time range) sodium chloride 0.9% (NS) bolus 500 mL (0 mL Intravenous Stopped 02/13/25 171) ipratropium-albuteroL (DUO-NEB) 0.5-2.5 mg/3 ml nebulizer solution 3 mL (3 mL Inhalation Given 02/13/25 174) methylPREDNISolone sod suc(PF) (SOLU-medrol) Injection 60 mg (60 mg Intravenous Given 02/13/25 1800) sodium chloride (PF) (NS) 0.9 % contrast line flush 10 mL (10 mL Intravenous Given 02/13/25 172) And sodium chloride (PF) (NS) 0.9 % contrast line flush 80 mL (80 mL Intravenous Given 02/13/25 172) iopamidoL (ISOVUE-370) 370 mg iodine /mL (76 %) injection 75 mL (75 mL Intravenous Contrast Administered 02/13/25 172) piperacillin-tazobactam (ZOSYN) IVPB 4.5 g (premix) (0 g Intravenous Stopped 02/13/25 183) vancomycin (VANCOCIN) 2000 mg in sodium chloride 0.9% 500 mL IVPB (0 mg Intravenous Stopped 939) furosemide (LASIX) injection 20 mg (20 mg Intravenous Given 02/13/251917) MDM/ED COURSE: BP (!) 159/87 Pulse 87 Temp 99.1 F (37.3 C) Resp (!) 23 Ht 5' 5 Wt 98 kg (216 lb) TsZ290% BMI 35.94 kg/m In brief, patient is a very pleasant 64-year-old female with a PMH as stated above, who presents tot ED chief complaint of progressive worsening shortness of breath for the past 1 week as well as generalized bodyaches and myalgias. Upon arrival patient was slightly tachycardic at 105 bpm, tachypneic at 22 breaths/min, over not hypoxemic on her home supplemental oxygen level at 3 L NC, normothermic, hemodynamically stable without hypotension. On exam she does appear ill, over nontoxic-appearing, no acute respiratory distress, she is protecting her airway. Overall ED workup concerning for anacute on chronic CHF exacerbation given her elevated BNP as well as possible pulmonary infectious fi ndings concerning for underlying pneumonia. Patient was given IV antibiotics to treat for infectious findings as well as 20 mg IV Lasix to assist with diuresis. CT scan negative for acute pulmonary embolism. Patient clinically does not appear to be in cardiac tamponade. Negative COVID-19/influenza testing. Urinalysis with large blood, but no bacteria, low suspicion for UTI. Renal function at baseline, patient is not in acute renal failure, potassium reassuring. No significant electrolyte derangements require emergent temporization. Glucose reassuring. No pneumothorax seen on CT imaging. Slight wheezing appreciated upon lung auscultation, patient was given DuoNebs as well as IV corticosteroids for concerns for an acute on chronic COPD exacerbation. See ED course below for further information. Of note, given the patient's known history of CPT 2 I did obtain a CPK level and did provide 500 ccIVF, unfortunately engineering laboratory technician had called ED charge nurse to inform us that the machine is currently not operating, CPK level pending. However, in my medical opinion with clinical information available to me at this time I do not feel continuous IVF resuscitation is warranted given the patient clinically appears volume overloaded in the setting of a CHF exacerbation. ED Course as of 02/13/25 2357 Gege Feb 13, 2025 1618 WBC(!): 11.39 [ZW] 1618 Hemoglobin: 13.0 Reviewed and reassuring. No evidence of anemia. [ZW] 1634 Lactic Acid: 1.5 [ZW] 1716 Informed by ED sap trainer that lab team had called to inform us that the CPK machine is currently down for an extensive period of time, expected to be operating this evening. [ZW] 1724 XR Chest 1 View IMPRESSION: No acute cardiopulmonary abnormality. [ZW] 1844 Troponin x 2 (Now and Repeat in 2 hours)(!!) Repeat troponin downtrending, overall reassuring. Likely demand ischemia in nature. Repeat EKG obtained at this time reassuring as well, no acute dynamic changes, NSR, no STEMI. [ZW] 1845 Evidence of leukocytosis as well as tachycardia and tachypnea, positive SIRS criteria, septic workup initiated that includes IV broad-spectrum antibiotics as well as blood and urine cultures. I did withhold 30 cc/kg of per sepsis protocol given the patient's acute on chronic respiratory failure and dyspnea presentation as well as elevated BNP concerning for volume overload. Patient was givena total of 500 cc IVF, remained hemodynamically stable without hypotension, low suspicion for septic shock. No lactic acidosis, low suspicion for severe sepsis as well. [ZW] [address] Abd Pelvis with IV contrast IMPRESSION: No CT evidence for pulmonary embolism. There is no evidence for thoracic aortic aneurysm or dissection. A cluster of small hazy nodular densities are seen in the posteroinferior right upper lobe, measuring up to 1 cm, suspicious for infectious/inflammatory process. Additional cluster of subcentimeter calcified and noncalcified nodules are seen within the lateral right upper lobe. No dense focal consolidation is seen. [ZW] 2354 Update: Elevated CPK at 28k, given the patient's history of CPT2 she was initiated on D10 halfNS at 1.5 maintenance. Hospitalist notified regarding lab finding and plan, Dr. Trevino acknowledged. [ZW] ED Course User Index [ZW] Astrid Sanders, DO The patient will require admission to the hospital for further evaluation and management. The patient was agreeable to this plan. The patient was treated symptomatically and remained stable throughout their ED course. The patient is appropriate for transfer to the floor and was signed out to the accepting hospital service to assume care. Shared Decision Making (SDM): Utilized by explaining the results and plan of care for disposition and next steps of care with the patient and/or family. Potential impact of patient's medical/surgicalcomorbidities were assessed and considered when determining the treatment course and outcome. Discussed options for treatment with or without prescription medications. IMPRESSION: 1. Acute on chronic respiratory failure, unspecified whether with hypoxia or hypercapnia (HCC) 2. Acute on chronic congestive heart failure, unspecified heart failure type (HCC) 3. SIRS (systemic inflammatory response syndrome) (HCC) 4. Pneumonia 5. CKD (chronic kidney disease) 6. Acute exacerbation of chronic obstructive pulmonary disease (COPD) (HCC) 7. Elevated CPK 8. 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HCC) 9. Myalgia Discussed with: Hospitalist ED Disposition ED Disposition Hospitalize Condition -- Comment Reason for inpatient over two midnights: IV lasix . . Astrid Sanders DO ED Attending Physician [facility] (Please note that portions of this note may have been completed with a voice recognition program. 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 Social Drivers of Health Financial Resource Strain: Medium Risk (06/03/2024) [facility] from [facility] Overall Financial Resource Strain (CARDIA) Difficulty of Paying Living Expenses: Somewhat hard Food Insecurity: No Food Insecurity (09/21/2024) Hunger Vital Sign Worried About Running Out of Food in the Last Year: Never true Ran Out of Food in the Last Year: Never true Transportation Needs: No Transportation Needs (09/21/2024) PRAPARE - Transportation Lack of Transportation (Medical): No Lack of Transportation (Non-Medical): No Housing Stability: High Risk (09/21/2024) Housing Stability Vital Sign Unable to Pay for Housing in the Last Year: Yes Number of Times Moved in the Last Year: 1 Homeless in the Last Year: No [2] Allergies Allergen Reactions Penicillins Unknown and Other (See Comments) Was told as a child that she is allergic, but has never taken it to know the reaction. Childhood reaction Was told as a child that she is allergic, but has never taken it to know the reaction. Vancomycin Rash [3] No outpatient medications have been marked as taking for the 02/13/25 encounter (Hospital Encounter). Astrid Sanders DO 02/13/25 2357 [id number] Emergency department Triage note* Astrid Connolly RN - 02/13/2025 3:40 PM EDT Pt reports sob and chest pain with hx of copd. Pt was given asa and duoneb treatment. Pt reports feeling much better after duoneb [id number] Emergency department Note* Marina Prado RN - 02/13/2025 3:40 PM EDT Bed: 25 Expected date: Expected time: Means of arrival: Comments: Nick [id number] Telephone encounter Note* Telephone Encounter - Julissa Parikh MA - 02/05/2025 7:33 AM EDT Received messaging requesting refill from [facility] Medication: Doljovi Last Office Visit: 06/03/2024 Next Scheduled Visit: Not scheduled Current Medication as of last visit (yes/no): yes [facility]04-02-2025 Miscellaneous Notes* Telephone Encounter - Julissa Parikh MA - 02/05/2025 7:33 AM EDT Received messaging requesting refill from [facility] Medication: Doljovi Last Office Visit: 06/03/2024 Next Scheduled Visit: Not scheduled Current Medication as of last visit (yes/no): yes [facility]* Diagnosis Onset Date Resolution Status Admit Date Right shoulder pain acute January 21, 2025 12:57pm Left cervical radiculopathy acute February 27, 2025 2:25pm Lumbar stenosis without neur ogenic claudication acute February 27, 2025 2:25pm Low back pain acute March 27, 025 11:29am Polyneuropathy acute March 27, 2025 11:29am Insomnia chronic March 27, 2025 11:29am Arthrosis of right acromioclavicular joint acute March 1:50pm Impingement of right shoulder acute April 03, 2025 1:50pm Right shoulder pain acute March 072024 1:50pm Tendinosis of right rotator cuff acu te April 03, 2025 1:50pm Smoking greater than 30 pack years a cute April 04, 2025 1:38pm Stage 3 severe COPD by GOLD classification acute April 04, 2025 1:38pm Hypoxemia chronic April 04, 2025 1:38pm FELISA (obstructive sleep apnea) chroni c April 04, 2025 1:38pm Carnitine palmitoyltransfera se II deficiency acute 2025 1:12pm Prediabetes acute April 16 1:12pm FELISA (obstructive sleep apnea) chroni c 2025 1:12pm Stage 3b chronic kidney dise ase (CKD) noneactive 2025 1:12pm Moderate major depression noneactive 2025 1:12pm Mixed hyperlipidemia noneactive 2025 1:12pm Foamy urine noneactive April 16 1:12pm Chronic abdominal pain noneactive Ju ne 2024 1:12pm Post-operative hypothyroidism noneac tive 2025 1:12pm Ventricular tachycardia noneactive J luke 2024 1:12pm Essential hypertension noneactive Ju 2024 1:12pm COPD (chronic obstructive pulmonary disease) noneactive April 16 1:12pm Obesity (BMI 30-39.9) noneactive Michael 2024 1:12pm [facility] Work Phone: 1(431) 284-391702-20-2025 Evaluation note* Diagnosis Onset Date Resolution Status Admit Date Left cervical radiculopathy acute December 26, 2024 11:03am Low back pain acute December 262024 11:03am Myalgia acute December 26, 2024 11:03am Neck pain acute December 26, 2024 11:03am Polyneuropathy acute December 082024 11:03am Insomnia chronic December 26, 2024 11:03am Cervical myelopathy with cervical radiculopathy noneactive January 9:54am Degenerative disc disease, cervical noneactive January 06, 2025 9:54am Right shoulder pain acute January 21, 2025 12:57pm Left cervical radiculopathy acute February 27, 2025 2:25pm Lumbar stenosis without neurogenic claudication acute February 272024 2:25pm Arthrosis of right acromioclavicular joint acute March 1:50pm Impingement of right shoulder acute April 03, 2025 1:50pm Right shoulder pain acute March 072024 1:50pm Tendinosis of right rotator cuff acute April 03, 2025 1 :50pm [facility] Work Phone: 1(561) 272-904302-20-2025 Evaluation note* Diagnosis Onset Date Resolution Status Admit Date Left cervical radiculopathy acute December 26, 2024 11:03am Low back pain acute December 262024 11:03am Myalgia acute December 26, 2024 11:03am Neck pain acute December 26, 2024 11:03am Polyneuropathy acute December 082024 11:03am Insomnia chronic December 26, 2024 11:03am Cervical myelopathy with cervical radiculopathy noneactive January 9:54am Degenerative disc disease, cervical noneactive January 06, 2025 9:54am Right shoulder pain acute January 21, 2025 12:57pm Left cervical radiculopathy acute February 27, 2025 2:25pm Lumbar stenosis without neurogenic claudication acute February 272024 2:25pm Arthrosis of right acromioclavicular joint acute March 1:50pm Impingement of right shoulder acute April 03, 2025 1:50pm Right shoulder pain acute March 072024 1:50pm Tendinosis of right rotator cuff acute April 03, 2025 1 :50pm FELISA (obstructive sleep apnea) chroni c April 04, 2025 1:38pm [facility] Work Phone: 1(671) 304-733002-20-2025 Evaluation note* Diagnosis Onset Date Resolution Status Admit Date Left cervical radiculopathy acute December 26, 2024 11:03am Low back pain acute December 262024 11:03am Myalgia acute December 26, 2024 11:03am Neck pain acute December 26, 2024 11:03am Polyneuropathy acute December 082024 11:03am Insomnia chronic December 26, 2024 11:03am Cervical myelopathy with cervical radiculopathy noneactive January 9:54am Degenerative disc disease, cervical noneactive January 06, 2025 9:54am Right shoulder pain acute January 21, 2025 12:57pm Left cervical radiculopathy acute February 27, 2025 2:25pm Lumbar stenosis without neurogenic claudication acute February 272024 2:25pm Arthrosis of right acromioclavicular joint acute March 1:50pm Impingement of right shoulder acute April 03, 2025 1:50pm Right shoulder pain acute March 072024 1:50pm Tendinosis of right rotator cuff acu te April 03, 2025 1:50pm Smoking greater than 30 pack years acute April 04, 2025 1:38pm Stage 3 severe COPD by GOLD classification acute April 04, 2025 1:38pm Hypoxemia chronic April 04, 2025 1:38pm FELISA (obstructive sleep apnea) chroni c April 04, 2025 1:38pm Carnitine palmitoyltransfera se II deficiency acute 2025 1:12pm Prediabetes acute April 16 1:12pm FELISA (obstructive sleep apnea) chroni c 2025 1:12pm Stage 3b chronic kidney dise ase (CKD) noneactive 2025 1:12pm Moderate major depression noneactive 2025 1:12pm Mixed hyperlipidemia noneactive 2025 1:12pm Chronic abdominal pain noneactive Ju 2024 1:12pm Post-operative hypothyroidism noneac tive 2025 1:12pm Ventricular tachycardia noneactive J [facility] 2024 1:12pm Essential hypertension noneactive Ju sc 2024 1:12pm COPD (chronic obstructive pulmonary disease) noneactive April 16 1:12pm Obesity (BMI 30-39.9) noneactive Michael e 2024 1:12pm [facility] Work Phone: 1(773) 311-215602-20-2025 Evaluation note* Diagnosis Onset Date Resolution Status Admit Date Left cervical radiculopathy acute December 26, 2024 11:03am Low back pain acute December 262024 11:03am Myalgia acute December 26, 2024 11:03am Neck pain acute December 26, 2024 11:03am Polyneuropathy acute December 082024 11:03am Insomnia chronic December 26, 2024 11:03am Cervical myelopathy with cervical radiculopathy noneactive January 9:54am Degenerative disc disease, cervical noneactive January 06, 2025 9:54am Right shoulder pain acute January 21, 2025 12:57pm Left cervical radiculopathy acute February 27, 2025 2:25pm Lumbar stenosis without neurogenic claudication acute February 272024 2:25pm Arthrosis of right acromioclavicular joint acute March 1:50pm Impingement of right shoulder acute April 03, 2025 1:50pm Right shoulder pain acute March 072024 1:50pm Tendinosis of right rotator cuff acu te April 03, 2025 1:50pm Smoking greater than 30 pack years acute April 04, 2025 1:38pm Stage 3 severe COPD by GOLD classification acute April 04, 2025 1:38pm Hypoxemia chronic April 04, 2025 1:38pm FELISA (obstructive sleep apnea) chroni c April 04, 2025 1:38pm Carnitine palmitoyltransfera se II deficiency acute 2025 1:12pm Prediabetes acute April 16 1:12pm FELISA (obstructive sleep apnea) chroni c 2025 1:12pm Stage 3b chronic kidney dise ase (CKD) noneactive 2025 1:12pm Moderate major depression noneactive 2025 1:12pm Mixed hyperlipidemia noneactive 2025 1:12pm Foamy urine noneactive April 16 1:12pm Chronic abdominal pain noneactive Ju sc 2024 1:12pm Post-operative hypothyroidism noneac tive 2025 1:12pm Ventricular tachycardia noneactive J [facility] 2024 1:12pm Essential hypertension noneactive [facility] 2024 1:12pm COPD (chronic obstructive pulmonary disease) noneactive April 16 1:12pm Obesity (BMI 30-39.9) noneactive Michael 2024 1:12pm [facility] Work Phone: 1(313) 149-483412-11-2024 Evaluation note* Diagnosis Onset Date Resolution Status Admit Date 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 024 1:13pm Prediabetes acute October 1:13pm FELISA (obstructive sleep apnea) chroni c October 16, 2024 1:13pm Stage 3b chronic kidney dise ase (CKD) noneactive October 16 1:13pm Moderate major depression noneactive October 16, 2024 1:13pm Screening for osteoporosis noneactiv e October 16, 2024 1:13pm Mixed hyperlipidemia noneactive [facility] 2023 1:13pm Chronic abdominal pain noneactive De 2023 1:13pm Post-operative hypothyroidism noneac tive October 16, 2024 1:13pm Ventricular tachycardia noneactive D ecember 2023 1:13pm Essential hypertension noneactive De 2023 1:13pm COPD (chronic obstructive pulmonary disease) noneactive October 1:13pm Hospital discharge follow-up noneact radha October 16, 2024 1:13pm Obesity (BMI 30-39.9) noneactive Dec ember 2023 1:13pm Left cervical radiculopathy acute December 26, 2024 11:03am Low back pain acute December 262024 11:03am Myalgia acute December 26, 2024 11:03am Neck pain acute December 26, 2024 11:03am Polyneuropathy acute December 082024 11:03am Insomnia chronic December 26, 2024 11:03am Cervical myelopathy with cervical radiculopathy noneactive January 9:54am Degenerative disc disease, cervical noneactive January 06, 2025 9:54am Right shoulder pain acute January 21, 2025 12:57pm [facility] Work Phone: 1(156) 520-282512-10-2024 Telephone encounter Note* Telephone Encounter - Cecille Johnson LPN - 10/15/2024 1:57 PM EST Images from the original note were not included. PA for Dojolvi approved by [employer] valid 11/06/2024- 11/05/2025 DANIEL# [id number] Updated: Genetics PA calendar Medication comments Copy of approval letter sent to HIM [facility]12-10-2024 Miscellaneous Notes* Telephone Encounter - Cecille Johnson LPN - 10/15/2024 1:57 PM EST Images from the original note were not included. PA for Dojolvi approved by [employer] valid 11/06/2024- 11/05/2025 DANIEL# [id number] Updated: Genetics PA calendar Medication comments Copy of approval letter sent to HIM * Telephone Encounter - Cecille Johnson LPN - 10/15/2024 10:43 AM EST Images from the original note were not included. Received PA renewal request for Dojolvi from [employer] as current PA mateo 11/05. PA submitted with office notes and labs via CMM. documented in this [facility]12-10-2024 Telephone encounter Note* Telephone Encounter - Cecille Johnson LPN - 10/15/2024 10:43 AM EST Images from the original note were not included. Received PA renewal request for Dojolvi from [employer] as current PA mateo 11/05. PA submitted with office notes and labs via CMM. [facility]11-20-2024 History of Present illness Narrative* Marsha Miguel LISW - 09/25/2024 12:40 PM EST Care Management Progress Note Date: 09/25/2024 Time: 12:40 PM Patient Name: Radha Shafer Date of : 1960 Discharge Plan: D/C Disposition: Home Regulatory Documentation: Medicare IM Regulatory Documentation Status: Signed Signed: Self Plan A: Home Patient Paper Copy: Patient received paper copy Discharging Transportation Plan: Discharge Plan Status: In-basket message received from [employer]. Patient has [place] Medicaid which will not cover bathroom equipment. JASON Gooden updated the patient. Berkley to update this worker if patient decides she would like to private pay for equipment. 1449- Patient is discharged. Assessment and Background Information: * Jaspreet Barnes RN - 09/24/2024 3:20 PM EST BP post IV hydralazine given is 166/87. Will continue to monitor. * Jaspreet Barnes RN - 09/24/2024 2:46 PM EST SBP still elevated in the 170s. Provider informed. Provider gave new order to give Hydralazine IV prn. Will give medication and monitor patient. * Jossie Alcazar MD - 09/24/2024 12:20 PM EST [facility] [place] Assessment and Plan Radha Shafer is a 64 y.o. female smoker with background history of COPD and attendant chronic respiratory failure on 4 L NC at baseline, FELISA, HTN, CKD, hypothyroidism and CPT deficiency who presented to [facility] on 09/21/2024 with SOB. CXR showed no acute cardiopulmonary process. She was admitted for COPD exacerbation. Acute COPD exacerbation Acute on chronic hypoxic/hypercapnic respiratory failure FELISA She was hypoxemic with O2 sat of 84% on presentation. CXR was unremarkable. Was on BiPAP on admission, now back on 4 L baseline. Continue Zithromax x 5 days, stop Rocephin. Bronchodilators, wean IV steroid. Monitor oxygenation closely. CAD Acute on chronic diastolic HF Echo 09/202222 grade 1 diastolic dysfunction, LVEF 63% Continue beta-blockers and other medical management. Repeated echocardiogram this hospitalization ejection fraction 60 to 65%, grade 1 diastolic dysfunction, no significant valvular disease Start IV Lasix 20 mg twice daily on 09/24 Acute on chronic diarrhea Patient stated that she has been having diarrhea over the last 2 years after she had rectal surgery, at some point she responded well to 1 round of rifaximin months ago, and being on rifaximin for less than a week this time, since yesterday she has had 5 bowel movement Order stool PCR to rule out C. difficile Order rifaximin for possible small intestinal bacterial overgrowth CKD Hyponatremia Hyperkalemia Avoid nephrotoxic agents. sNa 133 >> 136, K 5.8 >> 4.8 She is nonoliguric. Continue monitor. Avoid nephrotoxins. Elevated troponin Likely demand ischemia. Troponin 20 >> 15. She has pleuritic chest pain now improved. Analgesics as needed. Normocytic anemia Hb 10.2, about her baseline. Further outpatient anemia management. Hypothyroidism Continue home Synthroid. TSH is normal. Hypertension BP is controlled. Continue home lisinopril. Dyslipidemia CPK is better 713 >> 478. Continue to hold statin. Plan to restart on discharge if CPK improves further. CPT deficiency CPK chronically elevated. She follows with [facility] Liberalize oral intake. Morbid obesity BMI 38.1 Lifestyle modification Resolved acute medical issues Discharge Planning Medically Stable for Discharge Date: 09/25 Patient requires continued hospitalization due to: IV Lasix, stool PCR discharge Location: Home. Quality Measures DVT Prophylaxis: lovenox Diaz Catheter: absent Code Status Full resuscitation. Primary Contact Information Subjective Reports watery diarrhea 5 times since morning no blood, no abdominal pain or vomiting, still have shortness of breath no fever no chest pain Objective BP 130/79 Pulse 65 Temp 97.6 F (36.4 C) (Oral) Resp 18 Ht 5' 5 Wt 104.1 kg (229 lb 8 oz) SpO2 94% BMI 38.19 kg/m Physical Examination General Appearance: Resting in bed, awake and alert, conversant, no apparent distress. HEENT: Head- normocephalic; Eyes- EOMI, sclera anicteric; Throat- mucous membranes moist, edentulous. Cardiovascular: regular rate and rhythm; normal S1, S2; no murmurs, rubs, clicks or gallops; peripheral edema absent Respiratory: lungs clear to auscultation; without wheezes, rales or rhonchi; on nasal cannula Abdomen: soft, non-tender, non-distended Neurological: oriented x 3; normal speech; no focal findings or movement disorder noted Musculoskeletal: no significant deformity or tenderness to palpation Skin: normal coloration, warm and dry. Psych: normal mood and affect, no agitation * Jaspreet Barnes RN - 09/24/2024 12:10 PM EST SBP is still in the 180s. Provider informed. Patient is due to receive lisinipril po. Provider alsoordered patient to receive po lasix twice daily. Will give first dose of lasix and re check blood pressure. * Jaspreet Barnes RN - 09/24/2024 8:20 AM EST Notified hospitalist that patient's BP is 196/96. Patient is asymptomatic of elevated blood pressure. Provider said to give morning meds and then recheck blood pressure. * Chanel Larson MD - 09/23/2024 3:32 PM EST [id number] ENCOUNTER FOR HOME MEDICAL EQUIPMENT PATIENT: Radha Shafer : 1960 Statement of Care: I certify that Radha Shafer is under my care and that I, a Nurse Practitioner, Physician's Metal Furrer, or Resident working with me, had a [id number] encounter with this patient today to evaluate and discuss the need for home medical equipment. I certify that based on the findings of this evaluation, which included but was not limited to the [id number] requirements, the following home medical equipment is medically necessary: Shower chairand grab bar. Signed by: Chanel Larson MD on 09/23/2024 * Chanel Larson MD - 09/23/2024 3:28 PM EST [facility] [place] Assessment and Plan Radha Shafer is a 64 y.o. female smoker with background history of COPD and attendant chronic respiratory failure on 4 L NC at baseline, FELISA, HTN, CKD, hypothyroidism and CPT deficiency who presented to [facility] on 09/21/2024 with SOB. CXR showed no acute cardiopulmonary process. She was admitted for COPD exacerbation. Acute COPD exacerbation Acute on chronic hypoxic/hypercapnic respiratory failure FELISA She was hypoxemic with O2 sat of 84% on presentation. CXR was unremarkable. Was on BiPAP on admission, now back on 4 L baseline. Continue Zithromax x 5 days, stop Rocephin. Bronchodilators, wean IV steroid. Monitor oxygenation closely. CAD Chronic diastolic HF Not in acute decompensation. Echo 09/202222 grade 1 diastolic dysfunction, LVEF 63% Continue beta-blockers and other medical management. Pending updated echo. CKD Hyponatremia Hyperkalemia Avoid nephrotoxic agents. sNa 133 >> 136, K 5.8 >> 4.8 She is nonoliguric. Continue monitor. Avoid nephrotoxins. Elevated troponin Likely demand ischemia. Troponin 20 >> 15. She has pleuritic chest pain now improved. Analgesics as needed. Normocytic anemia Hb 10.2, about her baseline. Further outpatient anemia management. Hypothyroidism Continue home Synthroid. TSH is normal. Hypertension BP is controlled. Continue home lisinopril. Dyslipidemia CPK is better 713 >> 478. Continue to hold statin. Plan to restart on discharge if CPK improves further. CPT deficiency CPK chronically elevated. She follows with [facility] Liberalize oral intake. Resolved acute medical issues Discharge Planning Medically Stable for Discharge Date: 09/24. Patient requires continued hospitalization due to: Further management of COPD. CM consultation for home needs. Discharge Location: Home. Quality Measures DVT Prophylaxis: lovenox Diaz Catheter: absent Code Status Full resuscitation. Primary Contact Information Subjective Examined at bedside, resting in bed, awake and alert, no acute distress. Denies discomfort. Oxygenation is holding on 4 L. Nursing has no pressing concerns. Objective BP 130/79 Pulse 65 Temp 97.6 F (36.4 C) (Oral) Resp 18 Ht 5' 5 Wt 104.1 kg (229 lb 8 oz) SpO2 94% BMI 38.19 kg/m Physical Examination General Appearance: Resting in bed, awake and alert, conversant, no apparent distress. HEENT: Head- normocephalic; Eyes- EOMI, sclera anicteric; Throat- mucous membranes moist, edentulous. Cardiovascular: regular rate and rhythm; normal S1, S2; no murmurs, rubs, clicks or gallops; peripheral edema absent Respiratory: lungs clear to auscultation; without wheezes, rales or rhonchi; on nasal cannula Abdomen: soft, non-tender, non-distended Neurological: oriented x 3; normal speech; no focal findings or movement disorder noted Musculoskeletal: no significant deformity or tenderness to palpation Skin: normal coloration, warm and dry. Psych: normal mood and affect, no agitation * Chanel Larson MD - 09/22/2024 9:45 AM EST [facility] [place] Assessment and Plan Assessment and Plan Radha Shafer is a 64 y.o. female smoker with background history of COPD and attendant chronic respiratory failure on 4 L NC at baseline, FELISA, HTN, CKD, hypothyroidism and CPT deficiency who presented to [facility] on 09/21/2024 with SOB. CXR showed no acute cardiopulmonary process. She was admitted for COPD exacerbation. Acute COPD exacerbation Acute on chronic hypoxic/hypercapnic respiratory failure FELISA She was hypoxemic with O2 sat of 84% on presentation. CXR was unremarkable. Placed on BiPA, now back on 4 L NC. Empiric antibiotics with Rocephin and Zithromax. Bronchodilators, IV Solu-Medrol. Monitor oxygenation closely. CAD Chronic diastolic HF Volume status optimized. Compensated Echo 09/202222 grade 1 diastolic dysfunction, LVEF 63% Continue beta-blockers and antiemetic management. Pending updated echo. CKD Hyponatremia Hyperkalemia Avoid nephrotoxic agents. Na 133, K now 5.0. Continue gentle hydration. Elevated troponin Likely demand ischemia. Troponin 20 >> 15. She has pleuritic chest pain. Analgesics as needed. Normocytic anemia Hb baseline around 10 Hb holding at 10.3. No acute issues. Hypothyroidism Continue home Synthroid. TSH is normal. Hypertension BP is controlled Continue home lisinopril Dyslipidemia Hold statins for now due to elevated CPK. Plan to restart on discharge. CPT deficiency CPK chronically elevated. She follows with [facility] CK 713. Continue gentle fluid hydration. Resolved acute medical issues Discharge Planning Medically Stable for Discharge Date: 09/23. Patient requires continued hospitalization due to: Management of COPD exacerbation. Discharge Location: Home. Quality Measures DVT Prophylaxis: lovenox Diaz Catheter: absent Code Status Full resuscitation. Primary Contact Information Subjective Objective BP 130/79 Pulse 65 Temp 97.6 F (36.4 C) (Oral) Resp 18 Ht 5' 5 Wt 104.1 kg (229 lb 8 oz) SpO2 94% BMI 38.19 kg/m Physical Examination General Appearance: Supine in bed, awake and alert, conversant, no acute distress. HEENT: Head- normocephalic; Eyes- EOMI, sclera anicteric; Throat- mucous membranes moist, edentulous. Cardiovascular: regular rate and rhythm; normal S1, S2; no murmurs, rubs, clicks or gallops; peripheral edema absent Respiratory: lungs clear to auscultation; without wheezes, rales or rhonchi; on nasal cannula Abdomen: soft, non-tender, non-distended Neurological: oriented x 3; normal speech; no focal findings or movement disorder noted Musculoskeletal: no significant deformity or tenderness to palpation Skin: normal coloration, warm and dry. Psych: normal mood and affect, no agitation documented in this [id number] Miscellaneous Notes* Quick Note - Emy Strickland RN - 09/25/2024 12:30 PM EST Charting of SN Caity Flores reviewed * Plan of Care - Lorna Velázquez RN - 09/25/2024 4:52 AM EST Problem: Actual or potential alteration in health Goal: Absence of healthcare acquired conditions Outcome: Met Goal: Knowledge of Interdisciplinary Plan of Care Outcome: Met Goal: Knowledge of Enviroment Outcome: Met Problem: Pain Goal: Reduced pain sensation Outcome: Met Goal: Control of acute pain to acceptable level Outcome: Met Goal: Able to cope with pain Outcome: Met Goal: Able to achieve maximum level of physical functioning Outcome: Met Goal: Able to achieve maximum level of psychosocial functioning Outcome: Met * Quick Note - Antionette Koch RRT - 09/24/2024 11:15 AM EST GOLD standard COPD education given at this time. Educated patient on signs, symptoms, and management of COPD. Demonstrated breathing techniques and rescue positions. Educated patient on when and how to use home respiratory medication. Educated patient on COPD zones and the importance of knowing baseline symptoms. Encouraged patient to use COPD zones chart and if patient thinks they are in the yellow zone to call PCP and get an appointment. Educated patient on the importance of getting treatmentsooner with COPD. Talked to patient about preventive care like getting vaccines and staying away from anything that irritates their lungs. Patient had a sleep study in 1995 and does not wear her CPAPanymore and she states she needs a new sleep study. She wears 2lpm of oxygen continuous. She takes her Trelegy Ellipta ever day as prescribed and uses her Albuterol nebulizer and MDI as needed. Discussed associated custodial issues with non compliant FELISA. * Plan of Care - Jaspreet Barnes RN - 09/24/2024 10:39 AM EST Problem: Actual or potential alteration in health Goal: Absence of healthcare acquired conditions 09/24/2024 1039 by Jaspreet Barnes RN Outcome: Partially Met 09/24/2024 1027 by Jaspreet Barnes RN Outcome: Partially Met Goal: Knowledge of Interdisciplinary Plan of Care 09/24/2024 1039 by Jaspreet Barnes RN Outcome: Partially Met 09/24/2024 1027 by Jaspreet Barnes RN Outcome: Partially Met Goal: Knowledge of Enviroment 09/24/2024 1039 by Jaspreet Barnes RN Outcome: Partially Met 09/24/2024 1027 by Jaspreet Barnes RN Outcome: Partially Met Problem: Pain Goal: Reduced pain sensation 09/24/2024 1039 by Jaspreet Barnes RN Outcome: Partially Met 09/24/2024 1027 by Jaspreet Barnes RN Outcome: Partially Met Goal: Control of acute pain to acceptable level 09/24/2024 1039 by Jaspreet Barnes RN Outcome: Partially Met 09/24/2024 1027 by Jaspreet Barnes RN Outcome: Partially Met Goal: Able to cope with pain 09/24/2024 1039 by Jaspreet Barnes RN Outcome: Partially Met 09/24/2024 1027 by Jaspreet Barnes RN Outcome: Partially Met Goal: Able to achieve maximum level of physical functioning 09/24/2024 1039 by Jaspreet Barnes RN Outcome: Partially Met 09/24/2024 1027 by Jaspreet Barnes RN Outcome: Partially Met Goal: Able to achieve maximum level of psychosocial functioning 09/24/2024 1039 by Jaspreet Barnes RN Outcome: Partially Met 09/24/2024 1027 by Jaspreet Barnes RN Outcome: Partially Met * Plan of Care - Jaspreet Barnes RN - 09/24/2024 10:27 AM EST Problem: Actual or potential alteration in health Goal: Absence of healthcare acquired conditions Outcome: Partially Met Goal: Knowledge of Interdisciplinary Plan of Care Outcome: Partially Met Goal: Knowledge of Enviroment Outcome: Partially Met Problem: Pain Goal: Reduced pain sensation Outcome: Partially Met Goal: Control of acute pain to acceptable level Outcome: Partially Met Goal: Able to cope with pain Outcome: Partially Met Goal: Able to achieve maximum level of physical functioning Outcome: Partially Met Goal: Able to achieve maximum level of psychosocial functioning Outcome: Partially Met * Plan of Care - Prema Fowler RN - 09/23/2024 10:33 PM EST Problem: Actual or potential alteration in health Goal: Absence of healthcare acquired conditions Outcome: Partially Met Goal: Knowledge of Interdisciplinary Plan of Care Outcome: Partially Met Goal: Knowledge of Enviroment Outcome: Partially Met Problem: Pain Goal: Reduced pain sensation Outcome: Partially Met Goal: Control of acute pain to acceptable level Outcome: Partially Met Goal: Able to cope with pain Outcome: Partially Met Goal: Able to achieve maximum level of physical functioning Outcome: Partially Met Goal: Able to achieve maximum level of psychosocial functioning Outcome: Partially Met * Quick Note - Brianna Tan, RD - 09/23/2024 12:19 PM EST CHART REVIEW Reason for visit: SNAQ referral: Unintentional weight loss Current diet order: Cardiac Diet Current oral nutrition supplement: none Recent intake: 75%-100%X 1 meal, 50%-75% X 1 meal. Dx/Pertinent clinical information: Presents with SOB. Past Medical History: Diagnosis Date Anxiety Arthritis Back pain Bladder problem incontinence Cancer (HCC) thyroid Chronic pain disorder Colitis sigmoid COPD (chronic obstructive pulmonary disease) (HCC) 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HCC) Per pt. - Depression Diabetes (HCC) Diverticulosis Emphysema of lung (HCC) GERD (gastroesophageal reflux disease) Hepatic steatosis History of echocardiogram History of stress test Hypertension Hypothyroidism Kidney disease, chronic, stage I (GFR over 89 ml/min) stage 3 Lung nodule Neuromuscular disorder (HCC) 2015 I have cpt2 difficency Obesity On home oxygen therapy 2L via NC, PRN with walking, activity Scoliosis 03/2022 Sleep apnea noncompliant with CPAP; uses home oxygen Sleep apnea, obstructive Height: 5' 5 Current weight: 104.1 kg (229 lb 8 oz) BMI Body mass index is 38.19 kg/m . Weight hx: 2% weight loss noted. Wt Readings from Last 5 Encounters: 09/21/24 104.1 kg (229 lb 8 oz) 09/18/24 107.5 kg (237 lb) 09/02/24 107.5 kg (237 lb) 11/10/22 101.6 kg (224 lb) 09/24/22 102.7 kg (226 lb 8 oz) Labs: Recent Labs 09/22/24 0207 09/23/24 0706 NA 133* 136 K 5.0 4.8 BICARB 29 30 CL 93* 98 GLUCOSE 272* 121* BUN 31* 24 CREATININE 1.75* 1.28* MG 1.9 2.0 PHOS 4.3* -- Pt is at moderate nutritional risk at this time. An assessment will be completed within 6 days. JOLIE Chang, RDN, LD * Plan of Care - Prema Fowler RN - 09/23/2024 1:03 AM EST Problem: Actual or potential alteration in health Goal: Absence of healthcare acquired conditions Outcome: Partially Met Goal: Knowledge of Interdisciplinary Plan of Care Outcome: Partially Met Goal: Knowledge of Enviroment Outcome: Partially Met Problem: Pain Goal: Reduced pain sensation Outcome: Partially Met Goal: Control of acute pain to acceptable level Outcome: Partially Met Goal: Able to cope with pain Outcome: Partially Met Goal: Able to achieve maximum level of physical functioning Outcome: Partially Met Goal: Able to achieve maximum level of psychosocial functioning Outcome: Partially Met * Plan of Care - Prema Fowler RN - 09/22/2024 12:23 AM EST Problem: Actual or potential alteration in health Goal: Absence of healthcare acquired conditions Outcome: Partially Met Goal: Knowledge of Interdisciplinary Plan of Care Outcome: Partially Met Goal: Knowledge of Enviroment Outcome: Partially Met Problem: Pain Goal: Reduced pain sensation Outcome: Partially Met Goal: Control of acute pain to acceptable level Outcome: Partially Met Goal: Able to cope with pain Outcome: Partially Met Goal: Able to achieve maximum level of physical functioning Outcome: Partially Met Goal: Able to achieve maximum level of psychosocial functioning Outcome: Partially Met documented in this [id number] Progress note* Quick Note - Emy Strickland RN - 09/25/2024 12:30 PM EST Charting of SN Caity Flores reviewed [id number] NoteS DISCHARGE SUMMARY -- [facility] Radha Shafer Admitted: 09/21/2024 Discharge Date: 09/25/24 PCP Handoff Recommended Outpatient Testing Follow-up with PCP Results Pending At Discharge Stool PCR Clinical Summary Radah Shafer is a 64 y.o. female smoker with background history of COPD and attendant chronic respiratory failure on 4 L NC at baseline, FELISA, HTN, CKD, hypothyroidism and CPT deficiency who presented to [facility] on 09/21/2024 with SOB. CXR showed no acute cardiopulmonary process. She was admitted for COPD exacerbation. Acute COPD exacerbation Acute on chronic hypoxic/hypercapnic respiratory failure FELISA She was hypoxemic with O2 sat of 84% on presentation. CXR was unremarkable. Was on BiPAP on admission, now back on 4 L baseline. Continue Zithromax x 5 days, stop Rocephin. Bronchodilators, wean IV steroid., Discharged on oral prednisone for 10 days course Monitor oxygenation closely. CAD Acute on chronic diastolic HF Echo 09/202222 grade 1 diastolic dysfunction, LVEF 63% Continue beta-blockers and other medical management. Repeated echocardiogram this hospitalization ejection fraction 60 to 65%, grade 1 diastolic dysfunction, no significant valvular disease Start IV Lasix 20 mg twice daily on 09/24 Discharged on oral Lasix 20 mg twice daily Acute on chronic diarrhea Patient stated that she has been having diarrhea over the last 2 years after she had rectal surgery, at some point she responded well to 1 round of rifaximin months ago, and being on rifaximin for less than a week this time, since yesterday she has had 5 bowel movement Order stool PCR to rule out C. difficile Order rifaximin for possible small intestinal bacterial overgrowth Patient to follow-up with her GI as outpatient CKD stage III Hyponatremia Hyperkalemia Avoid nephrotoxic agents. Baseline creatinine 1.2-1.3 sNa 133 >> 136, K 5.8 >> 4.8 She is nonoliguric. Continue monitor. Avoid nephrotoxins. Elevated troponin Likely demand ischemia. Troponin 20 >> 15. She has pleuritic chest pain now improved. Analgesics as needed. Normocytic anemia Hb 10.2, about her baseline. Further outpatient anemia management. Hypothyroidism Continue home Synthroid. TSH is normal. Hypertension BP is controlled. Continue home lisinopril. Dyslipidemia CPK is better 713 >> 478. Continue to hold statin. Restart statin upon discharge CPT deficiency CPK chronically elevated. She follows with [facility] Liberalize oral intake. Morbid obesity BMI 38.1 Lifestyle modification Discharge Medications Discharge Medications New Medications Details furosemide 20 MG tablet Commonly known as: LASIX Take 1 (one) tablet (20 mg total) by mouth 2 (two) times a day . Quantity: 60 tablet predniSONE 10 MG tablet Commonly known as: DELTASONE Take 2 (two) tablets (20 mg total) by mouth daily for 3 days . Quantity: 6 tablet Medications To Continue Details * albuterol 0.63 mg/3 mL nebulizer solution Commonly known as: ACCUNEB Take 3 mL (0.63 mg total) by nebulization every 6 (six) hours as needed for wheezing . * albuterol 90 mcg/actuation inhaler Inhale 2 (two) puffs every 6 (six) hours as needed for wheezing . aspirin 81 mg chewable tablet Chew and Swallow 1 (one) tablet (81 mg total) daily . cetirizine 10 MG tablet Commonly known as: ZYRTEC Take 1 (one) tablet (10 mg total) by mouth daily . cholecalciferol (vitamin D3) 1,000 unit tablet Take 1 (one) tablet (1,000 Units total) by mouth daily . Dojolvi 8.3 kcal/mL Liqd Generic drug: triheptanoin Take 20 mL by mouth 3 (three) times a day . doxepin 100 MG capsule Commonly known as: SINEQUAN Take 1 (one) capsule (100 mg total) by mouth nightly . DULoxetine 60 MG capsule Commonly known as: CYMBALTA Take 1 (one) capsule (60 mg total) by mouth daily . ferrous sulfate 325 (65 FE) MG tablet Take 1 (one) tablet (325 mg total) by mouth daily with breakfast . levothyroxine 175 MCG tablet Commonly known as: SYNTHROID, LEVOTHROID Take 1 (one) tablet (175 mcg total) by mouth daily in the evening . lisinopriL 20 MG tablet Commonly known as: PRINIVIL,ZESTRIL Take 1 (one) tablet (20 mg total) by mouth daily . lovastatin 10 MG tablet Commonly known as: MEVACOR Take 1 (one) tablet (10 mg total) by mouth nightly . metoprolol tartrate 100 MG tablet Commonly known as: LOPRESSOR Take 1 (one) tablet (100 mg total) by mouth 2 (two) times a day . NIFEdipine 30 MG 24 hr tablet Commonly known as: ADALAT CC Take 1 (one) tablet (30 mg total) by mouth daily . omeprazole 40 MG capsule Commonly known as: PRILOSEC Take 1 (one) capsule (40 mg total) by mouth daily . oxygen Inhale 2 L/min as needed Per patient, only used when walking or with activity . * tiZANidine 4 MG capsule Commonly known as: ZANAFLEX Take 1 (one) capsule ( (more content not included)...[facility] 09-25-2024 Hospital course Narrative* Jossie Alcazar MD - 09/25/2024 11:04 AM EST Images from the original note were not included. [facility] [place]GE SUMMARY -- [facility] Radha Shafer Admitted: 09/21/2024 Discharge Date: 09/25/24 PCP Handoff Recommended Outpatient Testing Follow-up with PCP Results Pending At Discharge Stool PCR Clinical Summary Radha Shafer is a 64 y.o. female smoker with background history of COPD and attendant chronic respiratory failure on 4 L NC at baseline, FELISA, HTN, CKD, hypothyroidism and CPT deficiency who presented to [facility] on 09/21/2024 with SOB. CXR showed no acute cardiopulmonary process. She was admitted for COPD exacerbation. Acute COPD exacerbation Acute on chronic hypoxic/hypercapnic respiratory failure FELISA She was hypoxemic with O2 sat of 84% on presentation. CXR was unremarkable. Was on BiPAP on admission, now back on 4 L baseline. Continue Zithromax x 5 days, stop Rocephin. Bronchodilators, wean IV steroid., Discharged on oral prednisone for 10 days course Monitor oxygenation closely. CAD Acute on chronic diastolic HF Echo 09/202222 grade 1 diastolic dysfunction, LVEF 63% Continue beta-blockers and other medical management. Repeated echocardiogram this hospitalization ejection fraction 60 to 65%, grade 1 diastolic dysfunction, no significant valvular disease Start IV Lasix 20 mg twice daily on 09/24 Discharged on oral Lasix 20 mg twice daily Acute on chronic diarrhea Patient stated that she has been having diarrhea over the last 2 years after she had rectal surgery, at some point she responded well to 1 round of rifaximin months ago, and being on rifaximin for less than a week this time, since yesterday she has had 5 bowel movement Order stool PCR to rule out C. difficile Order rifaximin for possible small intestinal bacterial overgrowth Patient to follow-up with her GI as outpatient CKD stage III Hyponatremia Hyperkalemia Avoid nephrotoxic agents. Baseline creatinine 1.2-1.3 sNa 133 >> 136, K 5.8 >> 4.8 She is nonoliguric. Continue monitor. Avoid nephrotoxins. Elevated troponin Likely demand ischemia. Troponin 20 >> 15. She has pleuritic chest pain now improved. Analgesics as needed. Normocytic anemia Hb 10.2, about her baseline. Further outpatient anemia management. Hypothyroidism Continue home Synthroid. TSH is normal. Hypertension BP is controlled. Continue home lisinopril. Dyslipidemia CPK is better 713 >> 478. Continue to hold statin. Restart statin upon discharge CPT deficiency CPK chronically elevated. She follows [facility] Liberalize oral intake. Morbid obesity BMI 38.1 Lifestyle modification Discharge Medications Discharge Medications New Medications Details furosemide 20 MG tablet Commonly known as: LASIX Take 1 (one) tablet (20 mg total) by mouth 2 (two) times a day . Quantity: 60 tablet predniSONE 10 MG tablet Commonly known as: DELTASONE Take 2 (two) tablets (20 mg total) by mouth daily for 3 days . Quantity: 6 tablet Medications To Continue Details * albuterol 0.63 mg/3 mL nebulizer solution Commonly known as: ACCUNEB Take 3 mL (0.63 mg total) by nebulization every 6 (six) hours as needed for wheezing . * albuterol 90 mcg/actuation inhaler Inhale 2 (two) puffs every 6 (six) hours as needed for wheezing . aspirin 81 mg chewable tablet Chew and Swallow 1 (one) tablet (81 mg total) daily . cetirizine 10 MG tablet Commonly known as: ZYRTEC Take 1 (one) tablet (10 mg total) by mouth daily . cholecalciferol (vitamin D3) 1,000 unit tablet Take 1 (one) tablet (1,000 Units total) by mouth daily . Dojolvi 8.3 kcal/mL Liqd Generic drug: triheptanoin Take 20 mL by mouth 3 (three) times a day . doxepin 100 MG capsule Commonly known as: SINEQUAN Take 1 (one) capsule (100 mg total) by mouth nightly . DULoxetine 60 MG capsule Commonly known as: CYMBALTA Take 1 (one) capsule (60 mg total) by mouth daily . ferrous sulfate 325 (65 FE) MG tablet Take 1 (one) tablet (325 mg total) by mouth daily with breakfast . levothyroxine 175 MCG tablet Commonly known as: SYNTHROID, LEVOTHROID Take 1 (one) tablet (175 mcg total) by mouth daily in the evening . lisinopriL 20 MG tablet Commonly known as: PRINIVIL,ZESTRIL Take 1 (one) tablet (20 mg total) by mouth daily . lovastatin 10 MG tablet Commonly known as: MEVACOR Take 1 (one) tablet (10 mg total) by mouth nightly . metoprolol tartrate 100 MG tablet Commonly known as: LOPRESSOR Take 1 (one) tablet (100 mg total) by mouth 2 (two) times a day . NIFEdipine 30 MG 24 hr tablet Commonly known as: ADALAT CC Take 1 (one) tablet (30 mg total) by mouth daily . omeprazole 40 MG capsule Commonly known as: PRILOSEC Take 1 (one) capsule (40 mg total) by mouth daily . oxygen Inhale 2 L/min as needed Per patient, only used when walking or with activity . * tiZANidine 4 MG capsule Commonly known as: ZANAFLEX Take 1 (one) capsule (4 mg total) by mouth 2 (two) times a day . * tiZANidine 4 MG tablet Commonly known as: ZANAFLEX Take 3 (three) tablets (12 mg total) by mouth at bedtime . Trelegy Ellipta 200-62.5-25 mcg Dsdv Generic drug: oxuighxkpac-fxqehords-fppriqfo Inhale 1 (one) Inhalation daily . Quantity: 60 each Xifaxan 550 mg tablet Generic drug: rifAXIMin Take 1 (one) tablet (550 mg total) by mouth 3 (three) times a day . * There are duplicate medications prescribed to the patient Stopped Medications fluticasone propionate 50 mcg/actuation nasal spray Commonly known as: SYMONE Physician(s) Follow Up: No follow-up provider specified. Condition at Discharge: Fair Disposition: Home I reviewed discharge recommendations with the patient in person. Patient instructions, including activity, were given to the patient/family at discharge. On day of discharge I saw Radha Shafer and spent: > 30 minutes on discharge. Completed by: Jossie Alcazar MD on 09/25/24, 11:04 AM documented in this [id number] Plan of care note* Plan of Care - Lorna Velázquez RN - 09/25/2024 4:52 AM EST Problem: Actual or potential alteration in health Goal: Absence of healthcare acquired conditions Outcome: Met Goal: Knowledge of Interdisciplinary Plan of Care Outcome: Met Goal: Knowledge of Enviroment Outcome: Met Problem: Pain Goal: Reduced pain sensation Outcome: Met Goal: Control of acute pain to acceptable level Outcome: Met Goal: Able to cope with pain Outcome: Met Goal: Able to achieve maximum level of physical functioning Outcome: Met Goal: Able to achieve maximum level of psychosocial functioning Outcome: Met [id number] NoteHMS PROGRESS NOTE Assessment and Plan Radha Shafer is a 64 y.o. female smoker with background history of COPD and attendant chronic respiratory failure on 4 L NC at baseline, FELISA, HTN, CKD, hypothyroidism and CPT deficiency who presented to [facility] on 09/21/2024 with SOB. CXR showed no acute cardiopulmonary process. She was admitted for COPD exacerbation. Acute COPD exacerbation Acute on chronic hypoxic/hypercapnic respiratory failure FELISA She was hypoxemic with O2 sat of 84% on presentation. CXR was unremarkable. Was on BiPAP on admission, now back on 4 L baseline. Continue Zithromax x 5 days, stop Rocephin. Bronchodilators, wean IV steroid. Monitor oxygenation closely. CAD Acute on chronic diastolic HF Echo 09/202222 grade 1 diastolic dysfunction, LVEF 63% Continue beta-blockers and other medical management. Repeated echocardiogram this hospitalization ejection fraction 60 to 65%, grade 1 diastolic dysfunction, no significant valvular disease Start IV Lasix 20 mg twice daily on 09/24 Acute on chronic diarrhea Patient stated that she has been having diarrhea over the last 2 years after she had rectal surgery, at some point she responded well to 1 round of rifaximin months ago, and being on rifaximin for less than a week this time, since yesterday she has had 5 bowel movement Order stool PCR to rule out C. difficile Order rifaximin for possible small intestinal bacterial overgrowth CKD Hyponatremia Hyperkalemia Avoid nephrotoxic agents. sNa 133 >> 136, K 5.8 >> 4.8 She is nonoliguric. Continue monitor. Avoid nephrotoxins. Elevated troponin Likely demand ischemia. Troponin 20 >> 15. She has pleuritic chest pain now improved. Analgesics as needed. Normocytic anemia Hb 10.2, about her baseline. Further outpatient anemia management. Hypothyroidism Continue home Synthroid. TSH is normal. Hypertension BP is controlled. Continue home lisinopril. Dyslipidemia CPK is better 713 >> 478. Continue to hold statin. Plan to restart on discharge if CPK improves further. CPT deficiency CPK chronically elevated. She follows [facility] Liberalize oral intake. Morbid obesity BMI 38.1 Lifestyle modification Resolved acute medical issues Discharge Planning Medically Stable for Discharge Date: 09/25 Patient requires continued hospitalization due to: IV Lasix, stool PCR discharge Location: Home. Quality Measures DVT Prophylaxis: lovenox Diaz Catheter: absent Code Status Full resuscitation. Primary Contact Information Subjective Reports watery diarrhea 5 times since morning no blood, no abdominal pain or vomiting, still have shortness of breath no fever no chest pain Objective BP 130/79 Pulse 65 Temp 97.6 degrees F (36.4 degrees C) (Oral) Resp 18 Ht 5' 5 Wt 104.1 kg (229 lb 8 oz) SpO2 94% BMI 38.19 kg/m Physical Examination General Appearance: Resting in bed, awake and alert, conversant, no apparent distress. HEENT: Head- normocephalic; Eyes- EOMI, sclera anicteric; Throat- mucous membranes moist, edentulous. Cardiovascular: regular rate and rhythm; normal S1, S2; no murmurs, rubs, clicks or gallops; peripheral edema absent Respiratory: lungs clear to auscultation; without wheezes, rales or rhonchi; on nasal cannula Abdomen: soft, non-tender, non-distended Neurological: oriented x 3; normal speech; no focal findings or movement disorder noted Musculoskeletal: no significant deformity or tenderness to palpation Skin: normal coloration, warm and dry. Psych: normal mood and affect, no agitation AUTHENTICATED BY JOSSIE ALCAZAR, ON 09/24/2024 12:24:12[facility] 09-24-2024 Progress note* Quick Note - Antionette Koch RRT - 09/24/2024 11:15 AM EST GOLD standard COPD education given at this time. Educated patient on signs, symptoms, and management of COPD. Demonstrated breathing techniques and rescue positions. Educated patient on when and how to use home respiratory medication. Educated patient on COPD zones and the importance of knowing baseline symptoms. Encouraged patient to use COPD zones chart and if patient thinks they are in the yellow zone to call PCP and get an appointment. Educated patient on the importance of getting treatmentsooner with COPD. Talked to patient about preventive care like getting vaccines and staying away from anything that irritates their lungs. Patient had a sleep study in 1995 and does not wear her CPAPanymore and she states she needs a new sleep study. She wears 2lpm of oxygen continuous. She takes her Trelegy Ellipta ever day as prescribed and uses her Albuterol nebulizer and MDI as needed. 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 [id number] Plan of care note* Plan of Care - Jaspreet Barnes RN - 09/24/2024 10:39 AM EST Problem: Actual or potential alteration in health Goal: Absence of healthcare acquired conditions 09/24/2024 1039 by Jaspreet Barnes, JASON Outcome: Partially Met 09/24/2024 1027 by Jaspreet Barnes RN Outcome: Partially Met Goal: Knowledge of Interdisciplinary Plan of Care 09/24/2024 1039 by Jaspreet Barnes, JASON Outcome: Partially Met 09/24/2024 1027 by Jaspreet Barnes, RN Outcome: Partially Met Goal: Knowledge of Enviroment 09/24/2024 1039 by Jaspreet Barnes RN Outcome: Partially Met 09/24/2024 1027 by Jaspreet Barnes RN Outcome: Partially Met Problem: Pain Goal: Reduced pain sensation 09/24/2024 1039 by Jaspreet Barnes RN Outcome: Partially Met 09/24/2024 1027 by Jaspreet Barnes RN Outcome: Partially Met Goal: Control of acute pain to acceptable level 09/24/2024 1039 by Jaspreet Barnes RN Outcome: Partially Met 09/24/2024 1027 by Jaspreet Barnes RN Outcome: Partially Met Goal: Able to cope with pain 09/24/2024 1039 by Jaspreet Barnes RN Outcome: Partially Met 09/24/2024 1027 by Jaspreet Barnes RN Outcome: Partially Met Goal: Able to achieve maximum level of physical functioning 09/24/2024 1039 by Jaspreet Barnes RN Outcome: Partially Met 09/24/2024 1027 by Jaspreet Barnes RN Outcome: Partially Met Goal: Able to achieve maximum level of psychosocial functioning 09/24/2024 1039 by Jaspreet Barnes RN Outcome: Partially Met 09/24/2024 1027 by Jaspreet Barnes RN Outcome: Partially Met [id number] Plan of care note* Plan of Care - Jaspreet Barnes RN - 09/24/2024 10:27 AM EST Problem: Actual or potential alteration in health Goal: Absence of healthcare acquired conditions Outcome: Partially Met Goal: Knowledge of Interdisciplinary Plan of Care Outcome: Partially Met Goal: Knowledge of Enviroment Outcome: Partially Met Problem: Pain Goal: Reduced pain sensation Outcome: Partially Met Goal: Control of acute pain to acceptable level Outcome: Partially Met Goal: Able to cope with pain Outcome: Partially Met Goal: Able to achieve maximum level of physical functioning Outcome: Partially Met Goal: Able to achieve maximum level of psychosocial functioning Outcome: Partially Met [id number] Plan of care note* Plan of Care - Prema Fowler RN - 09/23/2024 10:33 PM EST Problem: Actual or potential alteration in health Goal: Absence of healthcare acquired conditions Outcome: Partially Met Goal: Knowledge of Interdisciplinary Plan of Care Outcome: Partially Met Goal: Knowledge of Enviroment Outcome: Partially Met Problem: Pain Goal: Reduced pain sensation Outcome: Partially Met Goal: Control of acute pain to acceptable level Outcome: Partially Met Goal: Able to cope with pain Outcome: Partially Met Goal: Able to achieve maximum level of physical functioning Outcome: Partially Met Goal: Able to achieve maximum level of psychosocial functioning Outcome: Partially Met [id number] ENCOUNTER FOR HOME MEDICAL EQUIPMENT PATIENT: Radha Shafer : 1960 Statement of Care: I certify that Radha Shafer is under my care and that I, a Nurse Practitioner, Physician's Metal Furrer, or Resident working with me, had a [id number] encounter with this patient today to evaluate and discuss the need for home medical equipment. I certify that based on the findings of this evaluation, which included but was not limited to the [id number] requirements, the following home medical equipment is medically necessary: Shower chair and grab bar. Signed by: Chanel Larson MD on 09/23/2024 AUTHENTICATED BY CHANEL LARSON, ON 09/23/2024 15:33:43[facility]11-18-2024 NoteHMS PROGRESS NOTE Assessment and Plan Radha Shafer is a 64 y.o. female smoker with background history of COPD and attendant chronic respiratory failure on 4 L NC at baseline, FELISA, HTN, CKD, hypothyroidism and CPT deficiency who presented to [facility] on 09/21/2024 with SOB. CXR showed no acute cardiopulmonary process. She was admitted for COPD exacerbation. Acute COPD exacerbation Acute on chronic hypoxic/hypercapnic respiratory failure FELISA She was hypoxemic with O2 sat of 84% on presentation. CXR was unremarkable. Was on BiPAP on admission, now back on 4 L baseline. Continue Zithromax x 5 days, stop Rocephin. Bronchodilators, wean IV steroid. Monitor oxygenation closely. CAD Chronic diastolic HF Not in acute decompensation. Echo 09/202222 grade 1 diastolic dysfunction, LVEF 63% Continue beta-blockers and other medical management. Pending updated echo. CKD Hyponatremia Hyperkalemia Avoid nephrotoxic agents. sNa 133 >> 136, K 5.8 >> 4.8 She is nonoliguric. Continue monitor. Avoid nephrotoxins. Elevated troponin Likely demand ischemia. Troponin 20 >> 15. She has pleuritic chest pain now improved. Analgesics as needed. Normocytic anemia Hb 10.2, about her baseline. Further outpatient anemia management. Hypothyroidism Continue home Synthroid. TSH is normal. Hypertension BP is controlled. Continue home lisinopril. Dyslipidemia CPK is better 713 >> 478. Continue to hold statin. Plan to restart on discharge if CPK improves further. CPT deficiency CPK chronically elevated. She follows [facility] Liberalize oral intake. Resolved acute medical issues Discharge Planning Medically Stable for Discharge Date: 09/24. Patient requires continued hospitalization due to: Further management of COPD. CM consultation for home needs. Discharge Location: Home. Quality Measures DVT Prophylaxis: lovenox Diaz Catheter: absent Code Status Full resuscitation. Primary Contact Information Subjective Examined at bedside, resting in bed, awake and alert, no acute distress. Denies discomfort. Oxygenation is holding on 4 L. Nursing has no pressing concerns. Objective BP 130/79 Pulse 65 Temp 97.6 degrees F (36.4 degrees C) (Oral) Resp 18 Ht 5' 5 Wt 104.1 kg (229 lb 8 oz) SpO2 94% BMI 38.19 kg/m Physical Examination General Appearance: Resting in bed, awake and alert, conversant, no apparent distress. HEENT: Head- normocephalic; Eyes- EOMI, sclera anicteric; Throat- mucous membranes moist, edentulous. Cardiovascular: regular rate and rhythm; normal S1, S2; no murmurs, rubs, clicks or gallops; peripheral edema absent Respiratory: lungs clear to auscultation; without wheezes, rales or rhonchi; on nasal cannula Abdomen: soft, non-tender, non-distended Neurological: oriented x 3; normal speech; no focal findings or movement disorder noted Musculoskeletal: no significant deformity or tenderness to palpation Skin: normal coloration, warm and dry. Psych: normal mood and affect, no agitation AUTHENTICATED BY CHANEL LARSON, ON 09/23/2024 15:29:[address] [place], [place] [id number] Progress note* Quick Note - Brianna Tan, RD - 09/23/2024 12:19 PM EST CHART REVIEW Reason for visit: SNAQ referral: Unintentional weight loss Current diet order: Cardiac Diet Current oral nutrition supplement: none Recent intake: 75%-100%X 1 meal, 50%-75% X 1 meal. Dx/Pertinent clinical information: Presents with SOB. Past Medical History: Diagnosis Date Anxiety Arthritis Back pain Bladder problem incontinence Cancer (HCC) thyroid Chronic pain disorder Colitis sigmoid COPD (chronic obstructive pulmonary disease) (HCC) 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HCC) Per pt. - Depression Diabetes (HCC) Diverticulosis Emphysema of lung (HCC) GERD (gastroesophageal reflux disease) Hepatic steatosis History of echocardiogram History of stress test Hypertension Hypothyroidism Kidney disease, chronic, stage I (GFR over 89 ml/min) stage 3 Lung nodule Neuromuscular disorder (HCC) 2015 I have cpt2 difficency Obesity On home oxygen therapy 2L via NC, PRN with walking, activity Scoliosis 03/2022 Sleep apnea noncompliant with CPAP; uses home oxygen Sleep apnea, obstructive Height: 5' 5 Current weight: 104.1 kg (229 lb 8 oz) BMI Body mass index is 38.19 kg/m . Weight hx: 2% weight loss noted. Wt Readings from Last 5 Encounters: 09/21/24 104.1 kg (229 lb 8 oz) 09/18/24 107.5 kg (237 lb) 09/02/24 107.5 kg (237 lb) 11/10/22 101.6 kg (224 lb) 09/24/22 102.7 kg (226 lb 8 oz) Labs: Recent Labs 09/22/24 0207 09/23/24 0706 NA 133* 136 K 5.0 4.8 BICARB 29 30 CL 93* 98 GLUCOSE 272* 121* BUN 31* 24 CREATININE 1.75* 1.28* MG 1.9 2.0 PHOS 4.3* -- Pt is at moderate nutritional risk at this time. An assessment will be completed within 6 days. JOLIE Chang, RASHEEDN, LD [id number] Consult note* Myriam Marsha Perdomo, SCALE EXPERT - 09/23/2024 11:46 AM ESTAssociated Order(s): IP CONSULT TO CARE MANAGEMENT Care Management Consult Note Date: 09/23/2024 Time: 11:56 AM Patient Name: Radha Shafer Date of : 1960 Reason for Consult: Discharge Plan: Plan A: Home Discharging Transportation Plan: Discharge Plan Status: Spoke with Dr. Larson. Patient was requesting to speak with social group worker. In to see patient. Patient was educated on the social service role. Patient reports she resides with her daughter. Patient reports she still drives. Patient reports she uses an electric wheelchair outside of the home. Patient wears home oxygen at 4 liters. Patient reports she has a CPAP as well butneeds a new sleep study. Patient reports the home is multi-story. Patient reports she mainly stays on the main level but the bathroom is either upstairs or down in the basement. Patient reports she is able to obtain her prescriptions. Patient reports she follows with Dr. Gordon in [place] for primary care. Patient requesting grab bars, a shower chair, and a wedge for sleeping. No other needs identified at this time. Spoke with Aramis with [employer]. [employer] does not have wedge pillows. Secure chat sent to Dr. Larson regarding need for shower chair and grab bar. In-basket message sent to [employer]. Assessment and Background Information: Living Arrangements: Children Caregiver Identified: Yes Caregiver's Name: Daughter, granddaughter Support Systems: Children Assistance Needed: Independent prior Type of Residence: Private residence Prior to Admission Home Care Services: No Patient expects to be discharged to:: Home Does the patient need discharge transport arranged?: No Current Home Equipment: Wheel chair, Walker, Cane, Oxygen (Electric wheelchair) Holistic Assessment Medication adherence problem:: No History of falls in last 6 months:: (!) Yes Family aware of the patient's advance care planning wishes:: Yes Do you have any cultural/spiritual connections or beliefs that would impact how we deliver your care?: No Chronic pain:: (!) Yes Location of chronic pain:: back [id number] Consult note* Marsha Miguel LISW - 09/23/2024 11:46 AM ESTAssociated Order(s): IP CONSULT TO CARE MANAGEMENT Care Management Consult Note Date: 09/23/2024 Time: 11:56 AM Patient Name: Radha Shafer Date of : 1960 Reason for Consult: Discharge Plan: Plan A: Home Discharging Transportation Plan: Discharge Plan Status: Spoke with Dr. Larson. Patient was requesting to speak with social group worker. In to see patient. Patient was educated on the social service role. Patient reports she resides with her daughter. Patient reports she still drives. Patient reports she uses an electric wheelchair outside of the home. Patient wears home oxygen at 4 liters. Patient reports she has a CPAP as well butneeds a new sleep study. Patient reports the home is multi-story. Patient reports she mainly stays on the main level but the bathroom is either upstairs or down in the basement. Patient reports she is able to obtain her prescriptions. Patient reports she follows with Dr. Gordon in [place] for primary care. Patient requesting grab bars, a shower chair, and a wedge for sleeping. No other needs identified at this time. Spoke with Aramis with [employer]. [employer] does not have wedge pillows. Secure chat sent to Dr. Larson regarding need for shower chair and grab bar. In-basket message sent to [employer]. Assessment and Background Information: Living Arrangements: Children Caregiver Identified: Yes Caregiver's Name: Daughter, granddaughter Support Systems: Children Assistance Needed: Independent prior Type of Residence: Private residence Prior to Admission Home Care Services: No Patient expects to be discharged to:: Home Does the patient need discharge transport arranged?: No Current Home Equipment: Wheel chair, Walker, Cane, Oxygen (Electric wheelchair) Holistic Assessment Medication adherence problem:: No History of falls in last 6 months:: (!) Yes Family aware of the patient's advance care planning wishes:: Yes Do you have any cultural/spiritual connections or beliefs that would impact how we deliver your care?: No Chronic pain:: (!) Yes Location of chronic pain:: back documented in this [id number] Plan of care note* Plan of Care - Prema Fowler, JASON - 09/23/2024 1:03 AM EST Problem: Actual or potential alteration in health Goal: Absence of healthcare acquired conditions Outcome: Partially Met Goal: Knowledge of Interdisciplinary Plan of Care Outcome: Partially Met Goal: Knowledge of Enviroment Outcome: Partially Met Problem: Pain Goal: Reduced pain sensation Outcome: Partially Met Goal: Control of acute pain to acceptable level Outcome: Partially Met Goal: Able to cope with pain Outcome: Partially Met Goal: Able to achieve maximum level of physical functioning Outcome: Partially Met Goal: Able to achieve maximum level of psychosocial functioning Outcome: Partially Met [id number] NoteHMS PROGRESS NOTE Assessment and Plan Assessment and Plan Radha Shafer is a 64 y.o. female smoker with background history of COPD and attendant chronic respiratory failure on 4 L NC at baseline, FELISA, HTN, CKD, hypothyroidism and CPT deficiency who presented to [facility] on 09/21/2024 with SOB. CXR showed no acute cardiopulmonary process. She was admitted for COPD exacerbation. Acute COPD exacerbation Acute on chronic hypoxic/hypercapnic respiratory failure FELISA She was hypoxemic with O2 sat of 84% on presentation. CXR was unremarkable. Placed on BiPA, now back on 4 L NC. Empiric antibiotics with Rocephin and Zithromax. Bronchodilators, IV Solu-Medrol. Monitor oxygenation closely. CAD Chronic diastolic HF Volume status optimized. Compensated Echo 09/202222 grade 1 diastolic dysfunction, LVEF 63% Continue beta-blockers and antiemetic management. Pending updated echo. CKD Hyponatremia Hyperkalemia Avoid nephrotoxic agents. Na 133, K now 5.0. Continue gentle hydration. Elevated troponin Likely demand ischemia. Troponin 20 >> 15. She has pleuritic chest pain. Analgesics as needed. Normocytic anemia Hb baseline around 10 Hb holding at 10.3. No acute issues. Hypothyroidism Continue home Synthroid. TSH is normal. Hypertension BP is controlled Continue home lisinopril Dyslipidemia Hold statins for now due to elevated CPK. Plan to restart on discharge. CPT deficiency CPK chronically elevated. She follows with [facility] CK 713. Continue gentle fluid hydration. Resolved acute medical issues Discharge Planning Medically Stable for Discharge Date: 09/23. Patient requires continued hospitalization due to: Management of COPD exacerbation. Discharge Location: Home. Quality Measures DVT Prophylaxis: lovenox Diaz Catheter: absent Code Status Full resuscitation. Primary Contact Information Subjective Objective BP 130/79 Pulse 65 Temp 97.6 degrees F (36.4 degrees C) (Oral) Resp 18 Ht 5' 5 Wt 104.1 kg (229 lb 8 oz) SpO2 94% BMI 38.19 kg/m Physical Examination General Appearance: Supine in bed, awake and alert, conversant, no acute distress. HEENT: Head- normocephalic; Eyes- EOMI, sclera anicteric; Throat- mucous membranes moist, edentulous. Cardiovascular: regular rate and rhythm; normal S1, S2; no murmurs, rubs, clicks or gallops; peripheral edema absent Respiratory: lungs clear to auscultation; without wheezes, rales or rhonchi; on nasal cannula Abdomen: soft, non-tender, non-distended Neurological: oriented x 3; normal speech; no focal findings or movement disorder noted Musculoskeletal: no significant deformity or tenderness to palpation Skin: normal coloration, warm and dry. Psych: normal mood and affect, no agitation AUTHENTICATED BY CHANEL LARSON, ON 09/23/2024 15:32:03[facility]11-17-2024 Plan of care note* Plan of Care - Prema Fowler RN - 09/22/2024 12:23 AM EST Problem: Actual or potential alteration in health Goal: Absence of healthcare acquired conditions Outcome: Partially Met Goal: Knowledge of Interdisciplinary Plan of Care Outcome: Partially Met Goal: Knowledge of Enviroment Outcome: Partially Met Problem: Pain Goal: Reduced pain sensation Outcome: Partially Met Goal: Control of acute pain to acceptable level Outcome: Partially Met Goal: Able to cope with pain Outcome: Partially Met Goal: Able to achieve maximum level of physical functioning Outcome: Partially Met Goal: Able to achieve maximum level of psychosocial functioning Outcome: Partially Met [id number] Emergency department Note* Meaghan Butler RN - 09/21/2024 11:10 PM EST Report given to room 3718 nurse [id number] Emergency department Note* Meaghan Butler RN - 09/21/2024 11:10 PM EST Spoke with [facility]. Pt had methylprednisolone at 2110. Next dose to be given 8 hours later [id number] Emergency department Note* Meaghan Butler RN - 09/21/2024 11:10 PM EST Report given to room 3718 nurse * Meaghan Butler RN - 09/21/2024 11:10 PM EST Spoke with [facility]. Pt had methylprednisolone at 2110. Next dose to be given 8 hours later * Meaghan Butler RN - 09/21/2024 10:14 PM EST Hourly rounding assessment completed on the patient. [x] Patient updated on plan of care [x] All comfort needs addressed [x] Patient updated on duration of visit All questions answered, patient denies further needs. Call light within reach. * Meaghan Butler RN - 09/21/2024 9:50 PM EST Hourly rounding assessment completed on the patient. [x] Patient updated on plan of care [x] All comfort needs addressed [x] Patient updated on duration of visit All questions answered, patient denies further needs. Call light within reach. * Delmy Brock RRT - 09/21/2024 9:14 PM EST RT at bedside for ABG. Results given to MD. BiPAP initiated 21/04 rate of 18, FiO2 of 35%. Patient does state she wears 4L O2 at home around the clock and is noncompliant with her home CPAP.Patient educated on the importance of wearing her CPAP at night regularly. * Sally Talbot MD - 09/21/2024 8:43 PM EST [facility] ED note NAME: Radha Shafer 64 y.o. CSN: [id number] PCP: No, Physician History: Chief Complaint: Shortness of Breath HPI: Patient is a 64-year-old female with multiple medical problems including a history of COPD chronic respiratory failure 4 L nasal cannula home oxygen also states she has a history of CP11 deficiency which causes hypoglycemia. She says she has had a productive cough shortness of breath difficulty breath. No bowel or bladder, no fevers reported. PMHx: Past Medical History: Diagnosis Date Anxiety Arthritis Back pain Bladder problem incontinence Cancer (HCC) thyroid Chronic pain disorder Colitis sigmoid COPD (chronic obstructive pulmonary disease) (HCC) 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HCC) Per pt. - Depression Diabetes (HCC) Diverticulosis Emphysema of lung (HCC) GERD (gastroesophageal reflux disease) Hepatic steatosis History of echocardiogram History of stress test Hypertension Hypothyroidism Kidney disease, chronic, stage I (GFR over 89 ml/min) stage 3 Lung nodule Neuromuscular disorder (HCC) 2016 I have cpt2 difficency Obesity On home oxygen therapy 2L via NC, PRN with walking, activity Scoliosis 03/2022 Sleep apnea noncompliant with CPAP; uses home oxygen Sleep apnea, obstructive PMSx: Past Surgical History: Procedure Laterality Date ALTEMEIER PROCEDURE N/A 03/30/2022 Procedure: ALTEMEIER PROCEDURE; Surgeon: Jada Vargas MD; [place] [facility] [place]; Service: Colorectal CARDIAC CATHETERIZATION N/A 09/26/2022 Procedure: Coronary Angiogram; Surgeon: Tor Long MD; Location: [facility]; Service: Cardiovascular CARDIOVASCULAR STRESS TEST CHOLECYSTECTOMY COLONOSCOPY with biopsies COLONOSCOPY N/A 02/17/2022 Procedure: COLONOSCOPY; Surgeon: Jada Vargas MD; Location: [facility] [place]; Service: Colorectal EGD N/A 08/15/2022 Procedure: ESOPHAGOGASTRODUODENOSCOPY WITH BIOPSY; Surgeon: Tyshawn Santos MD; Location: Endo; Service: Gastroenterology GALLBLADDER HC LEFT HEART CATH N/A 09/26/2022 Procedure: Left Heart Cath; Surgeon: Tor Long MD; Location: [facility]; Service: Cardiovascular HYSTERECTOMY JOINT REPLACEMENT Left knee ORTHOPEDIC SURGERY r wrist surgery, left ankle, right rotator cuff ROTATOR CUFF REPAIR Right SIGMOIDOSCOPY FLEXIBLE N/A 06/23/2022 Procedure: SIGMOIDOSCOPY FLEXIBLE WITH BIOPSY; Surgeon: Tyshawn Santos MD; Location[facility]; Service: Gastroenterology THYROIDECTOMY N/A 07/15/2015 Procedure: TOTAL THYROIDECTOMY; Surgeon: Lopez Alonso MD; Location: [facility] NEUR[facility] OR; Service: US ECHO TRANSTHORACIC FOLLOWUP LIMITED WRIST SURGERY Right FAM. Hx: Family History Problem Relation Age of Onset Heart disease Mother Lupus Mother Stroke Mother Arthritis Mother Heart attack Mother Heart disease Father Heart attack Father Hypertension Father Hypertension Sister Hypertension Brother Prostate cancer Brother Colon cancer Brother Hypertension Brother Prostate cancer Brother Colon cancer Brother Hypertension Brother Prostate cancer Brother Stomach cancer Brother Heart attack Maternal Grandmother Heart attack Maternal Grandfather Heart attack Paternal Grandmother Heart attack Paternal Grandfather Breast cancer Neg Hx SOC. 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 Social Drivers of Health Financial Resource Strain: Medium Risk (06/03/2024) Received from [facility] Overall Financial Resource Strain (CARDIA) Difficulty of Paying Living Expenses: Somewhat hard Food Insecurity: No Food Insecurity (09/02/2024) Hunger Vital Sign Worried About Running Out of Food in the Last Year: Never true Ran Out of Food in the Last Year: Never true Transportation Needs: No Transportation Needs (09/02/2024) PRAPARE - Transportation Lack of Transportation (Medical): No Lack of Transportation (Non-Medical): No Housing Stability: Low Risk (09/02/2024) Housing Stability Vital Sign Unable to Pay for Housing in the Last Year: No Number of Times Moved in the Last Year: 1 Homeless in the Last Year: No MEDs: Previous Medications Medication Sig albuterol (ACCUNEB) 0.63 mg/3 mL nebulizer solution Take 3 mL (0.63 mg total) by nebulization every6 (six) hours as needed for wheezing . albuterol (PROVENTIL HFA;VENTOLIN HFA) 90 mcg/actuation inhaler Inhale 2 (two) puffs every 6 (six) hours as needed for wheezing . aspirin 81 mg chewable tablet Chew and Swallow 1 (one) tablet (81 mg total) daily . cholecalciferol, vitamin D3, 1,000 unit tablet Take 1 (one) tablet (1,000 Units total) by mouth daily . doxepin (SINEQUAN) 75 MG capsule Take 1 (one) capsule (75 mg total) by mouth nightly as needed for sleep . DULoxetine (CYMBALTA) 60 MG capsule Take 1 (one) capsule (60 mg total) by mouth daily . ferrous sulfate 325 (65 FE) MG tablet Take 1 (one) tablet (325 mg total) by mouth daily with breakfast . fluticasone propionate (FLONASE) 50 mcg/actuation nasal spray Instill 2 (two) sprays into each nostril daily . qedhdngqbtf-frtfebyme-rfktuekj (Trelegy Ellipta) 200-62.5-25 mcg DsDv Inhale 1 (one) Inhalation daily . levothyroxine (SYNTHROID, LEVOTHROID) 175 MCG tablet Take 1 (one) tablet (175 mcg total) by mouth once daily . lisinopriL (PRINIVIL,ZESTRIL) 40 MG tablet Take 1 (one) tablet (40 mg total) by mouth daily . lovastatin (MEVACOR) 10 MG tablet Take 1 (one) tablet (10 mg total) by mouth nightly . metoprolol tartrate (LOPRESSOR) 100 MG tablet Take 1 (one) tablet (100 mg total) by mouth 2 (two) times a day . NIFEdipine (ADALAT CC) 30 MG 24 hr tablet Take 1 (one) tablet (30 mg total) by mouth daily . omeprazole (PRILOSEC) 40 MG capsule Take 1 (one) capsule (40 mg total) by mouth daily . oxygen Inhale 2 L/min as needed Per patient, only used when walking or with activity . tiZANidine (ZANAFLEX) 4 MG capsule Take 1 (one) capsule (4 mg total) by mouth 2 (two) times a day . tiZANidine (ZANAFLEX) 4 MG tablet Take 3 (three) tablets (12 mg total) by mouth at bedtime . triheptanoin (Dojolvi) 8.3 kcal/mL Liqd Take 20 mL by mouth 3 (three) times a day . ALL: Allergies Allergen Reactions Penicillins Unknown and Other (See Comments) Was told as a child that she is allergic, but has never taken it to know the reaction. Childhood reaction Was told as a child that she is allergic, but has never taken it to know the reaction. ROS: Review of Systems Positives and pertinent negatives as per HPI. All other systems were reviewed and are negative. Physical Exam: Patient Vitals for the past 24 hrs: BP Temp Temp src Pulse Resp SpO2 Height Weight 09/21/24 2130 (!) 143/86 -- -- 70 14 98 % -- -- 09/21/24 2100 (!) 131/116 -- -- 73 18 96 % -- -- 09/21/242048 -- -- -- -- -- 98 % -- -- 09/21/242002 (!) 155/101 99.2 F (37.3 C) Oral 86 (!) 27 (!) 84 % -- -- 09/21/241958 (!) 119/102 -- -- -- -- -- -- -- 09/21/241957 -- -- -- -- -- -- 5' 5 107.5 kg (237 lb) Physical Exam Vitals and nursing note reviewed. Constitutional: General: She is not in acute distress. Appearance: She is obese. HENT: Head: Normocephalic and atraumatic. Cardiovascular: Rate and Rhythm: Normal rate and regular rhythm. Musculoskeletal: General: Normal range of motion. Cervical back: Normal range of motion and neck supple. Pulmonary: Effort: Tachypnea present. Comments: Diminished breath sound bilaterally Abdominal: General: Bowel sounds are normal. Palpations: Abdomen is soft. Skin: General: Skin is warm. Neurological: General: No focal deficit present. Mental Status: She is alert. Laboratory & Radiological Imaging (if done): Labs Reviewed COMPREHENSIVE METABOLIC PANEL - Abnormal; Notable for the following components: Result Value Sodium 133 (*) Potassium 5.8 (*) Chloride 94 (*) Glucose 102 (*) BUN 32 (*) Creatinine 1.72 (*) eGFR 32 (*) AST 47 (*) All other components within normal limits Narrative: [facility] has implemented the eGFR calculation approach that does not have a coefficient for race that conforms to the NKF-ASN Task Force Recommendations. CPK - Abnormal; Notable for the following components: Total CK 713 (*) All other components within normal limits TROPONIN - Abnormal; Notable for the following components: Troponin T 20 (*) All other components within normal limits POC VENOUS BLOOD GAS PANEL-PULM - RALS - Abnormal; Notable for the following components: pH, Venous 7.31 (*) pCO2, Itz 67.4 (*) pO2, Itz 76 (*) Base Excess, Itz 5.2 (*) HCO3, Itz 33.6 (*) O2 Sat, Itz 94.8 (*) All other components within normal limits CBC WITH AUTO DIFFERENTIAL - Abnormal; Notable for the following components: Hemoglobin 10.8 (*) MCHC 29.4 (*) Neutrophils Abs 7.37 (*) All other components within normal limits CBC AND DIFFERENTIAL Narrative: The following orders were created for panel order CBC w/ Diff. Procedure Abnormality Status --------- ------ CBC Auto Differential[[id number]] Abnormal Final result Please view results for these tests on the individual orders. XR Chest 1 View (Results Pending) Procedures: Procedures Her past medical problem list included: Active Ambulatory Problems Diagnosis Date Noted Localized primary carpometacarpal osteoarthritis 04/24/2017 Primary osteoarthritis of left hand 04/24/2017 Surgery follow-up 05/12/2017 Bursitis/tendonitis, shoulder 05/18/2018 Pain 05/18/2018 Sleep apnea 04/05/2019 Chronic obstructive pulmonary disease with acute exacerbation (HCC) 04/05/2019 Hypertension 04/05/2019 Chest pain 04/05/2019 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[facility]) 04/05/2019 Hx of colonic polyps 01/07/2022 Rectal prolapse 03/01/2022 Diarrhea 06/21/2022 Non-traumatic rhabdomyolysis 06/25/2022 KRISTIN (acute kidney injury) ([facility]) 06/26/2022 CKD (chronic kidney disease) stage 3, GFR 30-59 ml/min ([facility]) 06/26/2022 Pain of upper abdomen 07/19/2022 Nausea 07/19/2022 Acute hypercapnic respiratory failure ([facility]) 09/02/2024 Resolved Ambulatory Problems Diagnosis Date Noted No Resolved Ambulatory Problems Past Medical History: Diagnosis Date Anxiety Arthritis Back pain Bladder problem Cancer ([facility]) Chronic pain disorder Colitis COPD (chronic obstructive pulmonary disease) ([facility]) Depression Diabetes ([facility]) Diverticulosis Emphysema of lung ([facility]) GERD (gastroesophageal reflux disease) Hepatic steatosis History of echocardiogram History of stress test Hypothyroidism Kidney disease, chronic, stage I (GFR over 89 ml/min) Lung nodule Neuromuscular disorder ([facility]) 2015 Obesity On home oxygen therapy Scoliosis 03/2022 Sleep apnea, obstructive ED MEDICATIONS GIVEN: Medications ipratropium-albuteroL (DUO-NEB) 0.5-2.5 mg/3 ml nebulizer solution 3 mL (3 mL Inhalation Given 09/21/242046) methylPREDNISolone sod suc(PF) (SOLU-medrol) Injection 125 mg (125 mg Intravenous Given 09/21/242110) After reviewing the items above, I look at previous medical documentation, such as recent hospitalizations, office visits, and/or recent consultations with PCP/specialist. SDOH: Another factor that I considered in Radha's care was her Social Determinants of Health (SDOH). During this ED encounter, she LAB TESTING: Ancillary lab testing . CBC CMP troponin CPK RADIOLOGY: I did consider radiological studies for Radha's care today, . Chest x-ray ED COURSE: Patient is a 64-year-old female with multiple medical problems including a history of COPD chronic respiratory failure 4 L nasal cannula home oxygen also states she has a history of CP11 deficiency which causes hypoglycemia. She says she has had a productive cough shortness of breath difficulty breath. Further workup initiated including a DuoNeb her pulse ox is 84% home baseline also get an ABG and blood work and chest x-ray to rule out pneumonia. Initial ABG does note a pH of 7.31 pCO2 67.4 pO2 76 bicarb 33.6 patient was placed on a BiPAP hypercapnic respiratory failure. Discussed case with hospitalist physician accepted admission for further management. An order for BIPAP has been placed to start on 09/21/2024, for a diagnosis of Acute respiratory failure with hypoxia and hypercarbia (HCC). . Clinical Impression: No diagnosis found. Disposition: ED Disposition None Sally Talbot MD ED Attending Physician [facility] Emergency Department (Please note that portions of this note have been completed with a voice recognition software. Efforts were made to correct any errors, but occasionally words are mis-transcribed.) Slaly Talbot MD 09/21/242158 * Meaghan Butler RN - 09/21/2024 8:04 PM EST PT PLACED ON 4L FOR O2 AT 84% ON RA. * Meaghan Butler RN - 09/21/2024 8:00 PM EST Hourly rounding assessment completed on the patient. [x] Patient updated on plan of care [x] All comfort needs addressed [x] Patient updated on duration of visit All questions answered, patient denies further needs. Call light within reach. * Meaghan Butler RN - 09/21/2024 7:53 PM EST PT ARRIVED VIA EMS WITH C/O SOB. 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 PT STATES THAT SHE STARTED WITH A HEADACHE THEN HEAVINESS IN CHEST HEAVINESS. PT ARRIVED TO ED ON 4L NC * Selena Simms RN - 09/21/2024 7:52 PM EST Bed: 15 Expected date: Expected time: Means of arrival: Comments: Alireza documented in this [id number] Emergency department Note* Meaghan Butler RN - 09/21/2024 10:14 PM EST Hourly rounding assessment completed on the patient. [x] Patient updated on plan of care [x] All comfort needs addressed [x] Patient updated on duration of visit All questions answered, patient denies further needs. Call light within reach. [id number] History and physical note* Nabila Chavez MD - 09/21/2024 10:01 PM EST [facility] AND [facility]YSICAL -- [facility] Patient Name: Radha Shafer : 1960 MR #: [id number] Admit Date: 09/21/2024 Physicians: No, Physician (Family); No ref. provider found (Referring) Radha Shafer is a 64 y.o. female patient of No, Physician with history of COPD, chronic hypoxemic respiratory failure on 4L NC at baseline, hypothyroidism, CPT deficiency, HTN, CKD, FELISA presentedto [facility] on 09/21/2024 with shortness of breath. Assessment/plan Acute on chronic hypoxemic hypercapnic respiratory failure COPD exacerbation FELISA Etiology: Possibly 2/2 PNA, most likely viral. Patient stopped smoking 1 time ago and she is compliant with home oxygen. Hypoxic on arrival, SpO2 84% CXR hyperinflated lung tirado, possible RML infiltrates, no pneumothorax or effusions ABG 7.31/67/76/33. Patient is a chronic retainer, CO2 baseline around 60 Obtain PNA workup including blood cultures x 2, RVP, Legionella, strep pneumo, mycoplasma, influenza, COVID, MRSA, PCT, sputum cultures Continue BiPAP support. Continuous pulse ox. SpO2 target 88 to 92%. ABX: Ceftriaxone, azithromycin Solu-Medrol 40 mg every 8 hours Budesonide nebs Spiriva Albuterol nebs standing CAD Chronic diastolic HF Volume status optimized. Compensated Echo 09/202222 grade 1 diastolic dysfunction, LVEF 63% Continue beta-blockers CKD Chronic hypokalemia Chronic hyponatremia Avoid nephrotoxic agents Gentle hydration Lokelma Elevated troponin Likely 2/2 demand supply mismatch Troponin 20 Trend troponin till it peaks Normocytic anemia Hemoglobin baseline around 10 Admission hemoglobin 10.8 Hypothyroidism Continue home Synthroid Hypertension Continue home lisinopril Dyslipidemia Hold statins for now. Resume on discharge CPT deficiency CK chronically elevated Residence prior to admission: house or apartment Was patient transferred from outlying hospital or ED no Quality Measures DVT Prophylaxis: lovenox Diaz Catheter: absent Medication Reconciliation: Verified Admitted with these risk variables:Non-invasive Mechanical Ventilation , Acute Respiratory Failure,and Pneumonia . Please see assessment and plan for further details. Estimated Date of Discharge greater than 2 midnights Code Status Full Code; code status verified on 09/21/2024 with patient (capacity intact) Chief Complaint shortness of breath History of Present Illness Radha Shafer is a 64 y.o. female patient of No, Physician with history of COPD, chronic hypoxemic respiratory failure on 4L NC at baseline, hypothyroidism, CPT deficiency, HTN, CKD, FELISA presented to [facility] on 09/21/2024 with shortness of breath. Patient presents to the ED with a complaint of worsening shortness of breath over the past week. Patient states that several family members have been having some illness, headache over the past week.She is experiencing worsening shortness of breath on rest and exertion. Is compliant with her home oxygen. Patient denies any chest pain, fevers. Patient will be admitted for further management of COPD exacerbation and, possibly pneumonia. Past Medical History Past Medical History: Diagnosis Date Anxiety Arthritis Back pain Bladder problem incontinence Cancer (HCC) thyroid Chronic pain disorder Colitis sigmoid COPD (chronic obstructive pulmonary disease) (HCC) 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HCC) Per pt. - Depression Diabetes (HCC) Diverticulosis Emphysema of lung (HCC) GERD (gastroesophageal reflux disease) Hepatic steatosis History of echocardiogram History of stress test Hypertension Hypothyroidism Kidney disease, chronic, stage I (GFR over 89 ml/min) stage 3 Lung nodule Neuromuscular disorder (HCC) 2015 I have cpt2 difficency Obesity On home oxygen therapy 2L via NC, PRN with walking, activity Scoliosis 03/2022 Sleep apnea noncompliant with CPAP; uses home oxygen Sleep apnea, obstructive Past Surgical History Past Surgical History: Procedure Laterality Date ALTEMEIER PROCEDURE N/A 03/30/2022 Procedure: ALTEMEIER PROCEDURE; Surgeon: Jada Vargas MD; [place] [facility] [place]; Service: Colorectal CARDIAC CATHETERIZATION N/A 09/26/2022 Procedure: Coronary Angiogram; Surgeon: Tor Long MD; Location: [facility]; Service: Cardiovascular CARDIOVASCULAR STRESS TEST CHOLECYSTECTOMY COLONOSCOPY with biopsies COLONOSCOPY N/A 02/17/2022 Procedure: COLONOSCOPY; Surgeon: Jada Vargas MD; Location: [facility] [place]; Service: Colorectal EGD N/A 08/15/2022 Procedure: ESOPHAGOGASTRODUODENOSCOPY WITH BIOPSY; Surgeon: Tyshawn Santos MD; Location: [facility]; Service: Gastroenterology GALLBLADDER HC LEFT HEART CATH N/A 09/26/2022 Procedure: Left Heart Cath; Surgeon: Tor Long MD; Location: [facility]; Service: Cardiovascular HYSTERECTOMY JOINT REPLACEMENT Left knee ORTHOPEDIC SURGERY r wrist surgery, left ankle, right rotator cuff ROTATOR CUFF REPAIR Right SIGMOIDOSCOPY FLEXIBLE N/A 06/23/2022 Procedure: SIGMOIDOSCOPY FLEXIBLE WITH BIOPSY; Surgeon: Tyshawn Santos MD; Location[facility]; Service: Gastroenterology THYROIDECTOMY N/A 07/15/2015 Procedure: TOTAL THYROIDECTOMY; Surgeon: Lopez Alonso MD; Location: [facility]; Service: US ECHO TRANSTHORACIC FOLLOWUP LIMITED WRIST SURGERY Right Family History Family History Problem Relation Age of Onset Heart disease Mother Lupus Mother Stroke Mother Arthritis Mother Heart attack Mother Heart disease Father Heart attack Father Hypertension Father Hypertension Sister Hypertension Brother Prostate cancer Brother Colon cancer Brother Hypertension Brother Prostate cancer Brother Colon cancer Brother Hypertension Brother Prostate cancer Brother Stomach cancer Brother Heart attack Maternal Grandmother Heart attack Maternal Grandfather Heart attack Paternal Grandmother Heart attack Paternal Grandfather Breast cancer Neg Hx Social History Social History Tobacco Use Smoking Status Former Current packs/day: 0.00 Average packs/day: 1 pack/day for 20.0 years (20.0 ttl pk-yrs) Types: Cigarettes Start date: 07/10/1993 Quit date: 07/10/2013 Years since quittin.2 Smokeless Tobacco Never Social History Substance and Sexual Activity Alcohol Use No Social History Substance and Sexual Activity Drug Use Yes Frequency: 7.0 times per week Types: Marijuana Comment: currently using daily for pain and depression. Allergy Information I have reviewed the patient's allergies. Penicillins Home Medications Home medications were reviewed. Review Of Systems All relevant systems have been reviewed and are negative except as noted in HPI or below Physical Examination BP (!) 143/86 Pulse 70 Temp 99.2 F (37.3 C) (Oral) Resp 14 Ht 5' 5 Wt 107.5 kg (237 lb) SpO2 98% BMI 39.44 kg/m General Appearance: alert; acute on chronically ill appearing; in moderate acute distress HEENT: Head- normocephalic; Eyes- EOMI, sclera anicteric; Throat- mucous membranes moist Cardiovascular: regular rate and rhythm; normal S1, S2; no murmurs, rubs, clicks or gallops; peripheral edema absent Respiratory: Distant breath sounds, no wheezes rales or rhonchi's; on BIPAP Abdomen: soft, non-tender, non-distended Neurological: oriented x 3; normal speech; no focal findings or movement disorder noted Musculoskeletal: no significant deformity or tenderness to palpation Skin: normal coloration Psych: normal mood and affect [id number] NoteHMS HISTORY AND PHYSICAL -- [facility] Patient Name: Radha Shafer : 1960 MR #: [id number] Admit Date: 09/21/2024 Physicians: Erin, Physician (Family); No ref. provider found (Referring) Radha Shafer is a 64 y.o. female patient of Erin, Physician with history of COPD, chronic hypoxemic respiratory failure on 4L NC at baseline, hypothyroidism, CPT deficiency, HTN, CKD, FELISA presented to [facility] on 09/21/2024 with shortness of breath. Assessment/plan Acute on chronic hypoxemic hypercapnic respiratory failure COPD exacerbation FELISA Etiology: Possibly 2/2 PNA, most likely viral. Patient stopped smoking 1 time ago and she is compliant with home oxygen. Hypoxic on arrival, SpO2 84% CXR hyperinflated lung tirado, possible RML infiltrates, no pneumothorax or effusions ABG 7.31/67/76/33. Patient is a chronic retainer, CO2 baseline around 60 Obtain PNA workup including blood cultures x 2, RVP, Legionella, strep pneumo, mycoplasma, influenza, COVID, MRSA, PCT, sputum cultures Continue BiPAP support. Continuous pulse ox. SpO2 target 88 to 92%. ABX: Ceftriaxone, azithromycin Solu-Medrol 40 mg every 8 hours Budesonide nebs Spiriva Albuterol nebs standing CAD Chronic diastolic HF Volume status optimized. Compensated Echo 09/202222 grade 1 diastolic dysfunction, LVEF 63% Continue beta-blockers CKD Chronic hypokalemia Chronic hyponatremia Avoid nephrotoxic agents Gentle hydration Lokelma Elevated troponin Likely 2/2 demand supply mismatch Troponin 20 Trend troponin till it peaks Normocytic anemia Hemoglobin baseline around 10 Admission hemoglobin 10.8 Hypothyroidism Continue home Synthroid Hypertension Continue home lisinopril Dyslipidemia Hold statins for now. Resume on discharge CPT deficiency CK chronically elevated Residence prior to admission: house or apartment Was patient transferred from outlying hospital or ED no Quality Measures DVT Prophylaxis: lovenox Diaz Catheter: absent Medication Reconciliation: Verified Admitted with these risk variables:Non-invasive Mechanical Ventilation , Acute Respiratory Failure, and Pneumonia . Please see assessment and plan for further details. Estimated Date of Discharge greater than 2 midnights Code Status Full Code; code status verified on 09/21/2024 with patient (capacity intact) Chief Complaint shortness of breath History of Present Illness Radha Shafer is a 64 y.o. female patient of , Physician with history of COPD, chronic hypoxemic respiratory failure on 4L NC at baseline, hypothyroidism, CPT deficiency, HTN, CKD, FELISA presented to [facility] on 09/21/2024 with shortness of breath. Patient presents to the ED with a complaint of worsening shortness of breath over the past week. Patient states that several family members have been having some illness, headache over the past week. She is experiencing worsening shortness of breath on rest and exertion. Is compliant with her home oxygen. Patient denies any chest pain, fevers. Patient will be admitted for further management of COPD exacerbation and, possibly pneumonia. Past Medical History Past Medical History: Diagnosis Date Anxiety Arthritis Back pain Bladder problem incontinence Cancer (HCC) thyroid Chronic pain disorder Colitis sigmoid COPD (chronic obstructive pulmonary disease) (HCC) 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HCC) Per pt. - Depression Diabetes (HCC) Diverticulosis Emphysema of lung (HCC) GERD (gastroesophageal reflux disease) Hepatic steatosis History of echocardiogram History of stress test Hypertension Hypothyroidism Kidney disease, chronic, stage I (GFR over 89 ml/min) stage 3 Lung nodule Neuromuscular disorder (HCC) 2015 I have cpt2 difficency Obesity On home oxygen therapy 2L via NC, PRN with walking, activity Scoliosis 03/2022 Sleep apnea noncompliant with CPAP; uses home oxygen Sleep apnea, obstructive Past Surgical History Past Surgical History: Procedure Laterality Date ALTEMEIER PROCEDURE N/A 03/30/2022 Procedure: ALTEMEIER PROCEDURE; Surgeon: Jada Vargas MD; [place] [facility] [place]; Service: Colorectal CARDIAC CATHETERIZATION N/A 09/26/2022 Procedure: Coronary Angiogram; Surgeon: Tor Long MD; Location: [facility]; Service: Cardiovascular CARDIOVASCULAR STRESS TEST CHOLECYSTECTOMY COLONOSCOPY with biopsies COLONOSCOPY N/A 02/17/2022 Procedure: COLONOSCOPY; Surgeon: Jada Vargas MD; Location: [facility] [place]; Service: Colorectal EGD N/A 08/15/2022 Procedure: ESOPHAGOGASTRODUODENOSCOPY WITH BIOPSY; Surgeon: Tyshawn Santos MD; Location: [facility]; Service: Gastroenterology GALLBLADDER HC LEFT HEART CATH N/A 09/26/2022 Procedure: Left Heart Cath; Surgeon: Tor Long MD; Location: [facility]; Service: Cardiovascular HYSTERECTOMY (more content not included)...[facility]11-16-2024 History and physical note* Nabila Chavez MD - 09/21/2024 10:01 PM EST [facility] [place] PHYSICAL -- [facility] Patient Name: Radha Shafer : 1960 MR #: [id number] Admit Date: 09/21/2024 Physicians: No, Physician (Family); No ref. provider found (Referring) Radha Shafer is a 64 y.o. female patient of Erin, Physician with history of COPD, chronic hypoxemic respiratory failure on 4L NC at baseline, hypothyroidism, CPT deficiency, HTN, CKD, FELISA presentedto [facility] on 09/21/2024 with shortness of breath. Assessment/plan Acute on chronic hypoxemic hypercapnic respiratory failure COPD exacerbation FELISA Etiology: Possibly 2/2 PNA, most likely viral. Patient stopped smoking 1 time ago and she is compliant with home oxygen. Hypoxic on arrival, SpO2 84% CXR hyperinflated lung tirado, possible RML infiltrates, no pneumothorax or effusions ABG 7.31/67/76/33. Patient is a chronic retainer, CO2 baseline around 60 Obtain PNA workup including blood cultures x 2, RVP, Legionella, strep pneumo, mycoplasma, influenza, COVID, MRSA, PCT, sputum cultures Continue BiPAP support. Continuous pulse ox. SpO2 target 88 to 92%. ABX: Ceftriaxone, azithromycin Solu-Medrol 40 mg every 8 hours Budesonide nebs Spiriva Albuterol nebs standing CAD Chronic diastolic HF Volume status optimized. Compensated Echo 09/202222 grade 1 diastolic dysfunction, LVEF 63% Continue beta-blockers CKD Chronic hypokalemia Chronic hyponatremia Avoid nephrotoxic agents Gentle hydration Lokelma Elevated troponin Likely 2/2 demand supply mismatch Troponin 20 Trend troponin till it peaks Normocytic anemia Hemoglobin baseline around 10 Admission hemoglobin 10.8 Hypothyroidism Continue home Synthroid Hypertension Continue home lisinopril Dyslipidemia Hold statins for now. Resume on discharge CPT deficiency CK chronically elevated Residence prior to admission: house or apartment Was patient transferred from outlying hospital or ED no Quality Measures DVT Prophylaxis: lovenox Diaz Catheter: absent Medication Reconciliation: Verified Admitted with these risk variables:Non-invasive Mechanical Ventilation , Acute Respiratory Failure,and Pneumonia . Please see assessment and plan for further details. Estimated Date of Discharge greater than 2 midnights Code Status Full Code; code status verified on 09/21/2024 with patient (capacity intact) Chief Complaint shortness of breath History of Present Illness Radha Shafer is a 64 y.o. female patient of , Physician with history of COPD, chronic hypoxemic respiratory failure on 4L NC at baseline, hypothyroidism, CPT deficiency, HTN, CKD, FLEISA presented to [facility] on 09/21/2024 with shortness of breath. Patient presents to the ED with a complaint of worsening shortness of breath over the past week. Patient states that several family members have been having some illness, headache over the past week.She is experiencing worsening shortness of breath on rest and exertion. Is compliant with her home oxygen. Patient denies any chest pain, fevers. Patient will be admitted for further management of COPD exacerbation and, possibly pneumonia. Past Medical History Past Medical History: Diagnosis Date Anxiety Arthritis Back pain Bladder problem incontinence Cancer (HCC) thyroid Chronic pain disorder Colitis sigmoid COPD (chronic obstructive pulmonary disease) (HCC) 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HCC) Per pt. - Depression Diabetes (HCC) Diverticulosis Emphysema of lung (HCC) GERD (gastroesophageal reflux disease) Hepatic steatosis History of echocardiogram History of stress test Hypertension Hypothyroidism Kidney disease, chronic, stage I (GFR over 89 ml/min) stage 3 Lung nodule Neuromuscular disorder (HCC) 2015 I have cpt2 difficency Obesity On home oxygen therapy 2L via NC, PRN with walking, activity Scoliosis 03/2022 Sleep apnea noncompliant with CPAP; uses home oxygen Sleep apnea, obstructive Past Surgical History Past Surgical History: Procedure Laterality Date ALTEMEIER PROCEDURE N/A 03/30/2022 Procedure: ALTEMEIER PROCEDURE; Surgeon: Jada Vargas MD; [place] [facility] [place]; Service: Colorectal CARDIAC CATHETERIZATION N/A 09/26/2022 Procedure: Coronary Angiogram; Surgeon: Tor Long MD; Location: [facility]; Service: Cardiovascular CARDIOVASCULAR STRESS TEST CHOLECYSTECTOMY COLONOSCOPY with biopsies COLONOSCOPY N/A 02/17/2022 Procedure: COLONOSCOPY; Surgeon: Jada Vargas MD; [place]: [facility]; Service: Colorectal EGD N/A 08/15/2022 Procedure: ESOPHAGOGASTRODUODENOSCOPY WITH BIOPSY; Surgeon: Tyshawn Santos MD; Location: Endo; Service: Gastroenterology GALLBLADDER HC LEFT HEART CATH N/A 09/26/2022 Procedure: Left Heart Cath; Surgeon: Tor Long MD; Location: [facility]; Service: Cardiovascular HYSTERECTOMY JOINT REPLACEMENT Left knee ORTHOPEDIC SURGERY r wrist surgery, left ankle, right rotator cuff ROTATOR CUFF REPAIR Right SIGMOIDOSCOPY FLEXIBLE N/A 06/23/2022 Procedure: SIGMOIDOSCOPY FLEXIBLE WITH BIOPSY; Surgeon: Tyshawn Santos MD; Location: Endo; Service: Gastroenterology THYROIDECTOMY N/A 07/15/2015 Procedure: TOTAL THYROIDECTOMY; Surgeon: Lopez Alonso MD; Location: [facility]; Service: US ECHO TRANSTHORACIC FOLLOWUP LIMITED WRIST SURGERY Right Family History Family History Problem Relation Age of Onset Heart disease Mother Lupus Mother Stroke Mother Arthritis Mother Heart attack Mother Heart disease Father Heart attack Father Hypertension Father Hypertension Sister Hypertension Brother Prostate cancer Brother Colon cancer Brother Hypertension Brother Prostate cancer Brother Colon cancer Brother Hypertension Brother Prostate cancer Brother Stomach cancer Brother Heart attack Maternal Grandmother Heart attack Maternal Grandfather Heart attack Paternal Grandmother Heart attack Paternal Grandfather Breast cancer Neg Hx Social History Social History Tobacco Use Smoking Status Former Current packs/day: 0.00 Average packs/day: 1 pack/day for 20.0 years (20.0 ttl pk-yrs) Types: Cigarettes Start date: 07/10/1993 Quit date: 07/10/2013 Years since quittin.2 Smokeless Tobacco Never Social History Substance and Sexual Activity Alcohol Use No Social History Substance and Sexual Activity Drug Use Yes Frequency: 7.0 times per week Types: Marijuana Comment: currently using daily for pain and depression. Allergy Information I have reviewed the patient's allergies. Penicillins Home Medications Home medications were reviewed. Review Of Systems All relevant systems have been reviewed and are negative except as noted in HPI or below Physical Examination BP (!) 143/86 Pulse 70 Temp 99.2 F (37.3 C) (Oral) Resp 14 Ht 5' 5 Wt 107.5 kg (237 lb) SpO2 98% BMI 39.44 kg/m General Appearance: alert; acute on chronically ill appearing; in moderate acute distress HEENT: Head- normocephalic; Eyes- EOMI, sclera anicteric; Throat- mucous membranes moist Cardiovascular: regular rate and rhythm; normal S1, S2; no murmurs, rubs, clicks or gallops; peripheral edema absent Respiratory: Distant breath sounds, no wheezes rales or rhonchi's; on BIPAP Abdomen: soft, non-tender, non-distended Neurological: oriented x 3; normal speech; no focal findings or movement disorder noted Musculoskeletal: no significant deformity or tenderness to palpation Skin: normal coloration Psych: normal mood and affect documented in this [id number] Emergency department Note* Meaghan Butler RN - 09/21/2024 9:50 PM EST Hourly rounding assessment completed on the patient. [x] Patient updated on plan of care [x] All comfort needs addressed [x] Patient updated on duration of visit All questions answered, patient denies further needs. Call light within reach. [id number] Emergency department Note* Delmy Brock RRT - 09/21/2024 9:14 PM EST RT at bedside for ABG. Results given to MD. BiPAP initiated 21/04 rate of 18, FiO2 of 35%. Patient does state she wears 4L O2 at home around the clock and is noncompliant with her home CPAP.Patient educated on the importance of wearing her CPAP at night regularly. [id number] Physician Emergency department Note* Sally Talbot MD - 09/21/2024 8:43 PM EST [facility] ED note NAME: Radha Shafer 64 y.o. CSN: [id number] PCP: No, Physician History: Chief Complaint: Shortness of Breath HPI: Patient is a 64-year-old female with multiple medical problems including a history of COPD chronic respiratory failure 4 L nasal cannula home oxygen also states she has a history of CP11 deficiency which causes hypoglycemia. She says she has had a productive cough shortness of breath difficulty breath. No bowel or bladder, no fevers reported. PMHx: Past Medical History: Diagnosis Date Anxiety Arthritis Back pain Bladder problem incontinence Cancer (HCC) thyroid Chronic pain disorder Colitis sigmoid COPD (chronic obstructive pulmonary disease) (HCC) 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HCC) Per pt. - Depression Diabetes (HCC) Diverticulosis Emphysema of lung (HCC) GERD (gastroesophageal reflux disease) Hepatic steatosis History of echocardiogram History of stress test Hypertension Hypothyroidism Kidney disease, chronic, stage I (GFR over 89 ml/min) stage 3 Lung nodule Neuromuscular disorder (HCC) 2015 I have cpt2 difficency Obesity On home oxygen therapy 2L via NC, PRN with walking, activity Scoliosis 03/2022 Sleep apnea noncompliant with CPAP; uses home oxygen Sleep apnea, obstructive PMSx: Past Surgical History: Procedure Laterality Date ALTEMEIER PROCEDURE N/A 03/30/2022 Procedure: ALTEMEIER PROCEDURE; Surgeon: Jada Vargas MD; [place] [facility] [place]; Service: Colorectal CARDIAC CATHETERIZATION N/A 09/26/2022 Procedure: Coronary Angiogram; Surgeon: Tor Long MD; Location: [facility]; Service: Cardiovascular CARDIOVASCULAR STRESS TEST CHOLECYSTECTOMY COLONOSCOPY with biopsies COLONOSCOPY N/A 02/17/2022 Procedure: COLONOSCOPY; Surgeon: Jada Vargas MD; [place]: [facility] [place]; Service: Colorectal EGD N/A 08/15/2022 Procedure: ESOPHAGOGASTRODUODENOSCOPY WITH BIOPSY; Surgeon: Tyshawn Santos MD; Location: [facility]; Service: Gastroenterology GALLBLADDER HC LEFT HEART CATH N/A 09/26/2022 Procedure: Left Heart Cath; Surgeon: Tor Long MD; Location: [facility]; Service: Cardiovascular HYSTERECTOMY JOINT REPLACEMENT Left knee ORTHOPEDIC SURGERY r wrist surgery, left ankle, right rotator cuff ROTATOR CUFF REPAIR Right SIGMOIDOSCOPY FLEXIBLE N/A 06/23/2022 Procedure: SIGMOIDOSCOPY FLEXIBLE WITH BIOPSY; Surgeon: Tyshawn Santos MD; Location: [facility]; Service: Gastroenterology THYROIDECTOMY N/A 07/15/2015 Procedure: TOTAL THYROIDECTOMY; Surgeon: Lopez Alonso MD; Location: [facility]; Service: US ECHO TRANSTHORACIC FOLLOWUP LIMITED WRIST SURGERY Right FAM. Hx: Family History Problem Relation Age of Onset Heart disease Mother Lupus Mother Stroke Mother Arthritis Mother Heart attack Mother Heart disease Father Heart attack Father Hypertension Father Hypertension Sister Hypertension Brother Prostate cancer Brother Colon cancer Brother Hypertension Brother Prostate cancer Brother Colon cancer Brother Hypertension Brother Prostate cancer Brother Stomach cancer Brother Heart attack Maternal Grandmother Heart attack Maternal Grandfather Heart attack Paternal Grandmother Heart attack Paternal Grandfather Breast cancer Neg Hx SOC. 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 Social Drivers of Health Financial Resource Strain: Medium Risk (06/03/2024) Received from [facility] Overall Financial Resource Strain (CARDIA) Difficulty of Paying Living Expenses: Somewhat hard Food Insecurity: No Food Insecurity (09/02/2024) Hunger Vital Sign Worried About Running Out of Food in the Last Year: Never true Ran Out of Food in the Last Year: Never true Transportation Needs: No Transportation Needs (09/02/2024) PRAPARE - Transportation Lack of Transportation (Medical): No Lack of Transportation (Non-Medical): No Housing Stability: Low Risk (09/02/2024) Housing Stability Vital Sign Unable to Pay for Housing in the Last Year: No Number of Times Moved in the Last Year: 1 Homeless in the Last Year: No MEDs: Previous Medications Medication Sig albuterol (ACCUNEB) 0.63 mg/3 mL nebulizer solution Take 3 mL (0.63 mg total) by nebulization every6 (six) hours as needed for wheezing . albuterol (PROVENTIL HFA;VENTOLIN HFA) 90 mcg/actuation inhaler Inhale 2 (two) puffs every 6 (six) hours as needed for wheezing . aspirin 81 mg chewable tablet Chew and Swallow 1 (one) tablet (81 mg total) daily . cholecalciferol, vitamin D3, 1,000 unit tablet Take 1 (one) tablet (1,000 Units total) by mouth daily . doxepin (SINEQUAN) 75 MG capsule Take 1 (one) capsule (75 mg total) by mouth nightly as needed for sleep . DULoxetine (CYMBALTA) 60 MG capsule Take 1 (one) capsule (60 mg total) by mouth daily . ferrous sulfate 325 (65 FE) MG tablet Take 1 (one) tablet (325 mg total) by mouth daily with breakfast . fluticasone propionate (FLONASE) 50 mcg/actuation nasal spray Instill 2 (two) sprays into each nostril daily . bmuqpjoyfbt-gcbhkfsud-hjrpqdzk (Trelegy Ellipta) 200-62.5-25 mcg DsDv Inhale 1 (one) Inhalation daily . levothyroxine (SYNTHROID, LEVOTHROID) 175 MCG tablet Take 1 (one) tablet (175 mcg total) by mouth once daily . lisinopriL (PRINIVIL,ZESTRIL) 40 MG tablet Take 1 (one) tablet (40 mg total) by mouth daily . lovastatin (MEVACOR) 10 MG tablet Take 1 (one) tablet (10 mg total) by mouth nightly . metoprolol tartrate (LOPRESSOR) 100 MG tablet Take 1 (one) tablet (100 mg total) by mouth 2 (two) times a day . NIFEdipine (ADALAT CC) 30 MG 24 hr tablet Take 1 (one) tablet (30 mg total) by mouth daily . omeprazole (PRILOSEC) 40 MG capsule Take 1 (one) capsule (40 mg total) by mouth daily . oxygen Inhale 2 L/min as needed Per patient, only used when walking or with activity . tiZANidine (ZANAFLEX) 4 MG capsule Take 1 (one) capsule (4 mg total) by mouth 2 (two) times a day . tiZANidine (ZANAFLEX) 4 MG tablet Take 3 (three) tablets (12 mg total) by mouth at bedtime . triheptanoin (Dojolvi) 8.3 kcal/mL Liqd Take 20 mL by mouth 3 (three) times a day . ALL: Allergies Allergen Reactions Penicillins Unknown and Other (See Comments) Was told as a child that she is allergic, but has never taken it to know the reaction. Childhood reaction Was told as a child that she is allergic, but has never taken it to know the reaction. ROS: Review of Systems Positives and pertinent negatives as per HPI. All other systems were reviewed and are negative. Physical Exam: Patient Vitals for the past 24 hrs: BP Temp Temp src Pulse Resp SpO2 Height Weight 09/21/24 2130 (!) 143/86 -- -- 70 14 98 % -- -- 09/21/242099 (!) 131/116 -- -- 73 18 96 % -- -- 09/21/242048 -- -- -- -- -- 98 % -- -- 09/21/242002 (!) 155/101 99.2 F (37.3 C) Oral 86 (!) 27 (!) 84 % -- -- 09/21/241958 (!) 119/102 -- -- -- -- -- -- -- 09/21/241957 -- -- -- -- -- -- 5' 5 107.5 kg (237 lb) Physical Exam Vitals and nursing note reviewed. Constitutional: General: She is not in acute distress. Appearance: She is obese. HENT: Head: Normocephalic and atraumatic. Cardiovascular: Rate and Rhythm: Normal rate and regular rhythm. Musculoskeletal: General: Normal range of motion. Cervical back: Normal range of motion and neck supple. Pulmonary: Effort: Tachypnea present. Comments: Diminished breath sound bilaterally Abdominal: General: Bowel sounds are normal. Palpations: Abdomen is soft. Skin: General: Skin is warm. Neurological: General: No focal deficit present. Mental Status: She is alert. Laboratory & Radiological Imaging (if done): Labs Reviewed COMPREHENSIVE METABOLIC PANEL - Abnormal; Notable for the following components: Result Value Sodium 133 (*) Potassium 5.8 (*) Chloride 94 (*) Glucose 102 (*) BUN 32 (*) Creatinine 1.72 (*) eGFR 32 (*) AST 47 (*) All other components within normal limits Narrative: [facility] has implemented the eGFR calculation approach that does not have a coefficient for race that conforms to the NKF-ASN Task Force Recommendations. CPK - Abnormal; Notable for the following components: Total CK 713 (*) All other components within normal limits TROPONIN - Abnormal; Notable for the following components: Troponin T 20 (*) All other components within normal limits POC VENOUS BLOOD GAS PANEL-PULM - RALS - Abnormal; Notable for the following components: pH, Venous 7.31 (*) pCO2, Itz 67.4 (*) pO2, Itz 76 (*) Base Excess, Itz 5.2 (*) HCO3, Itz 33.6 (*) O2 Sat, Itz 94.8 (*) All other components within normal limits CBC WITH AUTO DIFFERENTIAL - Abnormal; Notable for the following components: Hemoglobin 10.8 (*) MCHC 29.4 (*) Neutrophils Abs 7.37 (*) All other components within normal limits CBC AND DIFFERENTIAL Narrative: The following orders were created for panel order CBC w/ Diff. Procedure Abnormality Status --------- ------ CBC Auto Differential[[id number]] Abnormal Final result Please view results for these tests on the individual orders. 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 Hx of colonic polyps 01/07/2022 Rectal prolapse 03/01/2022 Diarrhea 06/21/2022 Non-traumatic rhabdomyolysis 06/25/2022 KRISTIN (acute kidney injury) ([facility]) 06/26/2022 CKD (chronic kidney disease) stage 3, GFR 30-59 ml/min ([facility]) 06/26/2022 Pain of upper abdomen 07/19/2022 Nausea 07/19/2022 Acute hypercapnic respiratory failure ([facility]) 09/02/2024 Resolved Ambulatory Problems Diagnosis Date Noted No Resolved Ambulatory Problems Past Medical History: Diagnosis Date Anxiety Arthritis Back pain Bladder problem Cancer (HCC) Chronic pain disorder Colitis COPD (chronic obstructive pulmonary disease) (HCC) Depression Diabetes (HCC) Diverticulosis Emphysema of lung (HCC) GERD (gastroesophageal reflux disease) Hepatic steatosis History of echocardiogram History of stress test Hypothyroidism Kidney disease, chronic, stage I (GFR over 89 ml/min) Lung nodule Neuromuscular disorder (HCC) 2016 Obesity On home oxygen therapy Scoliosis 03/2022 Sleep apnea, obstructive ED MEDICATIONS GIVEN: Medications ipratropium-albuteroL (DUO-NEB) 0.5-2.5 mg/3 ml nebulizer solution 3 mL (3 mL Inhalation Given 09/21/242046) methylPREDNISolone sod suc(PF) (SOLU-medrol) Injection 125 mg (125 mg Intravenous Given 09/21/242110) After reviewing the items above, I look at previous medical documentation, such as recent hospitalizations, office visits, and/or recent consultations with PCP/specialist. SDOH: Another factor that I considered in Radha's care was her Social Determinants of Health (SDOH). During this ED encounter, she LAB TESTING: Ancillary lab testing . CBC CMP troponin CPK RADIOLOGY: I did consider radiological studies for Radha's care today, . Chest x-ray ED COURSE: Patient is a 64-year-old female with multiple medical problems including a history of COPD chronic respiratory failure 4 L nasal cannula home oxygen also states she has a history of CP11 deficiency which causes hypoglycemia. She says she has had a productive cough shortness of breath difficulty breath. Further workup initiated including a DuoNeb her pulse ox is 84% home baseline also get an ABG and blood work and chest x-ray to rule out pneumonia. Initial ABG does note a pH of 7.31 pCO2 67.4 pO2 76 bicarb 33.6 patient was placed on a BiPAP hypercapnic respiratory failure. Discussed case with hospitalist physician accepted admission for further management. An order for BIPAP has been placed to start on 09/21/2024, for a diagnosis of Acute respiratory failure with hypoxia and hypercarbia ([facility]LY [facility]). . Clinical Impression: No diagnosis found. Disposition: ED Disposition None Sally Talbot MD ED Attending Physician [facility] Emergency Department (Please note that portions of this note have been completed with a voice recognition software. Efforts were made to correct any errors, but occasionally words are mis-transcribed.) Sally Talbot MD 09/21/24 [id number] Emergency department Note* Meaghan Butler RN - 09/21/2024 8:04 PM EST PT PLACED ON 4L FOR O2 AT 84% ON RA. [id number] Emergency department Note* Meaghan Butler RN - 09/21/2024 8:00 PM EST Hourly rounding assessment completed on the patient. [x] Patient updated on plan of care [x] All comfort needs addressed [x] Patient updated on duration of visit All questions answered, patient denies further needs. Call light within reach. [id number] Emergency department Triage note* Meaghan Butler RN - 09/21/2024 7:53 PM EST PT ARRIVED VIA EMS WITH C/O SOB. 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 PT STATES THAT SHE STARTED WITH A HEADACHE THEN HEAVINESS IN CHEST HEAVINESS. PT ARRIVED TO ED ON 4L NC [id number] Emergency department Note* Selena Simms RN - 09/21/2024 7:52 PM EST Bed: 15 Expected date: Expected time: Means of arrival: Comments: Alireza [id number] NoteHeart & Vascular Clinic Note [facility] Visit Date: 09/18/2024 Patient Name: Radha Shafer : 1960 Reason for Visit: Initial Visit (Intake) (VT/Palpitations/ Flavia) ASSESSMENT: #NSVT: Noted on an event monitor. Echo w/ Nl LVEF- 60%. Stress test done in April was negative for ischemia. LHC done in 2021 showed luminal irregularities. She denies any palpitations. Metoprolol was increased to 100mg which she has tolerated. #SOB: progressively worsening. Unclear etiology. Has a h/o COPD. Euvolemic on examination. #COPD: On oxygen. 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 Done in [place]. LVEF-60% PLAN: --c/w metoprolol --pursue a cardiac MRI --repeat holter monitor on higher dose of metoprolol --f/u 4mths. HPI: Radha Shafer is a 64 y.o. female who presents today to discuss management of NSVT episodes. She has a h/o CPT2 deficiency w/ chronic myalgias, Hypothyroidism, h/o thyroid cancer, HTN,HLD, FELISA. Noted NSVT episodes on an event monitor. She complains of progressively worsening SOB. She notes she was able to walk from her bedroom to the living room before w/o SOB and now can only walk around her bed before getting short of breath. Histories Past Medical History: Diagnosis Date Anxiety Arthritis Back pain Bladder problem incontinence Cancer (HCC) thyroid Chronic pain disorder Colitis sigmoid COPD (chronic obstructive pulmonary disease) (HCC) 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HCC) Per pt. - Depression Diabetes (HCC) Diverticulosis Emphysema of lung (HCC) GERD (gastroesophageal reflux disease) Hepatic steatosis History of echocardiogram History of stress test Hypertension Hypothyroidism Kidney disease, chronic, stage I (GFR over 89 ml/min) stage 3 Lung nodule Neuromuscular disorder (HCC) 2015 I have cpt2 difficency Obesity On home oxygen therapy 2L via [place], PRN with walking, activity Scoliosis 03/2022 Sleep apnea noncompliant with CPAP; uses home oxygen Sleep apnea, obstructive Past Surgical History: Procedure Laterality Date ALTEMEIER PROCEDURE N/A 03/30/2022 Procedure: ALTEMEIER PROCEDURE; Surgeon: Jada Vargas MD; [place] [facility] [place]; Service: Colorectal CARDIAC CATHETERIZATION N/A 09/26/2022 Procedure: Coronary Angiogram; Surgeon: Tor Long MD; Location: [facility]; Service: Cardiovascular CARDIOVASCULAR STRESS TEST CHOLECYSTECTOMY COLONOSCOPY with biopsies COLONOSCOPY N/A 02/17/2022 Procedure: COLONOSCOPY; Surgeon: Jada Vargas MD; Location: [facility] [place]; Service: Colorectal EGD N/A 08/15/2022 Procedure: ESOPHAGOGASTRODUODENOSCOPY WITH BIOPSY; Surgeon: Tyshawn Santos MD; Location: [facility]; Service: Gastroenterology GALLBLADDER HC LEFT HEART CATH N/A 09/26/2022 Procedure: Left Heart Cath; Surgeon: Tor Long MD; Location: [facility]; Service: Cardiovascular HYSTERECTOMY JOINT REPLACEMENT Left knee ORTHOPEDIC SURGERY r wrist surgery, left ankle, right rotator cuff ROTATOR CUFF REPAIR Right SIGMOIDOSCOPY FLEXIBLE N/A 06/23/2022 Procedure: SIGMOIDOSCOPY FLEXIBLE WITH BIOPSY; Surgeon: Tyshawn Santos MD; Location: [facility]; Service: Gastroenterology THYROIDECTOMY N/A 07/15/2015 Procedure: TOTAL THYROIDECTOMY; Surgeon: Lopez Alonso MD; Location: [facility]UR[facility] OR; Service: US ECHO TRANSTHORACIC FOLLOWUP LIMITED WRIST SURGERY Right Family History Problem Relation Age of Onset Heart disease Mother Lupus Mother Stroke Mother Arthritis Mother Heart attack Mother Heart disease Father Heart attack Father Hypertension Father Hypertension Sister Hypertension Brother Prostate cancer Brother Colon cancer Brother Hypertension Brother Prostate cancer Brother Colon cancer Brother Hypertension Brother Prostate cancer Brother Stomach cancer Brother Heart attack Maternal Grandmother Heart attack Maternal Grandfather Heart attack Paternal Grandmother Heart attack Paternal Grandfather Breast cancer Neg Hx Social History Socioeconomic History Marital status: Occupational History 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 Tobacco Use Smoking status: Former Current packs/day: 0.00 Average packs/day: 1 pack/day for 20.0 years (20.0 ttl pk-yrs) Types: Cigarettes Start date: 07/10/1993 Quit date: 07/10/2013 Years since quittin.2 Smokeless tobacco: Never Vaping Use Vaping status: Never Used Substance and Sexual Activity Alcohol use: No Drug use: Yes Frequency: 7.0 times per week Types: Marijuana Comment: currently (more content not included)...[facility] 09-18-2024 History of Present illness Narrative* Cb Boudreaux MD - 09/18/2024 1:51 PM EST Heart & Vascular Clinic Note [facility] Visit Date: 09/18/2024 Patient Name: Radha Shafer : 1960 Reason for Visit: Initial Visit (Intake) (VT/Palpitations/ Flavia) ASSESSMENT: #NSVT: Noted on an event monitor. Echo w/ Nl LVEF- 60%. Stress test done in April was negative for ischemia. LHC done in 2021 showed luminal irregularities. She denies any palpitations. Metoprolol was increased to 100mg which she has tolerated. #SOB: progressively worsening. Unclear etiology. Has a h/o COPD. Euvolemic on examination. #COPD: On oxygen. 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 Done in [place]. LVEF-60% PLAN: --c/w metoprolol --pursue a cardiac MRI --repeat holter monitor on higher dose of metoprolol --f/u 4mths. HPI: Radha Shafer is a 64 y.o. female who presents today to discuss management of NSVT episodes. She has a h/o CPT2 deficiency w/ chronic myalgias, Hypothyroidism, h/o thyroid cancer, HTN,HLD, FELISA. Noted NSVT episodes on an event monitor. She complains of progressively worsening SOB. She notes she was able to walk from her bedroom to the living room before w/o SOB and now can only walk around her bed before getting short of breath. Histories Past Medical History: Diagnosis Date Anxiety Arthritis Back pain Bladder problem incontinence Cancer (HCC) thyroid Chronic pain disorder Colitis sigmoid COPD (chronic obstructive pulmonary disease) (HCC) 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HCC) Per pt. - Depression Diabetes (HCC) Diverticulosis Emphysema of lung (HCC) GERD (gastroesophageal reflux disease) Hepatic steatosis History of echocardiogram History of stress test Hypertension Hypothyroidism Kidney disease, chronic, stage I (GFR over 89 ml/min) stage 3 Lung nodule Neuromuscular disorder (HCC) 2015 I have cpt2 difficency Obesity On home oxygen therapy 2L via [place], PRN with walking, activity Scoliosis 03/2022 Sleep apnea noncompliant with CPAP; uses home oxygen Sleep apnea, obstructive Past Surgical History: Procedure Laterality Date ALTEMEIER PROCEDURE N/A 03/30/2022 Procedure: ALTEMEIER PROCEDURE; Surgeon: Jada Vargas MD; Location: [facility]; Service: Colorectal CARDIAC CATHETERIZATION N/A 09/26/2022 Procedure: Coronary Angiogram; Surgeon: Tor Long MD; Location: [facility]; Service: Cardiovascular CARDIOVASCULAR STRESS TEST CHOLECYSTECTOMY COLONOSCOPY with biopsies COLONOSCOPY N/A 02/17/2022 Procedure: COLONOSCOPY; Surgeon: Jada Vargas MD; Location: [facility] [place]; Service: Colorectal EGD N/A 08/15/2022 Procedure: ESOPHAGOGASTRODUODENOSCOPY WITH BIOPSY; Surgeon: Tyshawn Santos MD; Location: Endo; Service: Gastroenterology GALLBLADDER HC LEFT HEART CATH N/A 09/26/2022 Procedure: Left Heart Cath; Surgeon: Tor Long MD; Location: [facility]; Service: Cardiovascular HYSTERECTOMY JOINT REPLACEMENT Left knee ORTHOPEDIC SURGERY r wrist surgery, left ankle, right rotator cuff ROTATOR CUFF REPAIR Right SIGMOIDOSCOPY FLEXIBLE N/A 06/23/2022 Procedure: SIGMOIDOSCOPY FLEXIBLE WITH BIOPSY; Surgeon: Tyshawn Santos MD; Location: Endo; Service: Gastroenterology THYROIDECTOMY N/A 07/15/2015 Procedure: TOTAL THYROIDECTOMY; Surgeon: Lopez Alonso MD; Location: [facility]; Service: US ECHO TRANSTHORACIC FOLLOWUP LIMITED WRIST SURGERY Right Family History Problem Relation Age of Onset Heart disease Mother Lupus Mother Stroke Mother Arthritis Mother Heart attack Mother Heart disease Father Heart attack Father Hypertension Father Hypertension Sister Hypertension Brother Prostate cancer Brother Colon cancer Brother Hypertension Brother Prostate cancer Brother Colon cancer Brother Hypertension Brother Prostate cancer Brother Stomach cancer Brother Heart attack Maternal Grandmother Heart attack Maternal Grandfather Heart attack Paternal Grandmother Heart attack Paternal Grandfather Breast cancer Neg Hx Social History Socioeconomic History Marital status: Occupational History 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 Social Drivers of Health Financial Resource Strain: Medium Risk (06/03/2024) Received from [facility] Overall Financial Resource Strain (CARDIA) Difficulty of Paying Living Expenses: Somewhat hard Food Insecurity: No Food Insecurity (09/02/2024) Hunger Vital Sign Worried About Running Out of Food in the Last Year: Never true Ran Out of Food in the Last Year: Never true Transportation Needs: No Transportation Needs (09/02/2024) PRAPARE - Transportation Lack of Transportation (Medical): No Lack of Transportation (Non-Medical): No Housing Stability: Low Risk (09/02/2024) Housing Stability Vital Sign Unable to Pay for Housing in the Last Year: No Number of Times Moved in the Last Year: 1 Homeless in the Last Year: No Penicillins Patient's Medications New Prescriptions No medications on file Previous Medications ALBUTEROL (ACCUNEB) 0.63 MG/3 ML NEBULIZER SOLUTION Take 3 mL (0.63 mg total) by nebulization every6 (six) hours as needed for wheezing . ALBUTEROL (PROVENTIL HFA;VENTOLIN HFA) 90 MCG/ACTUATION INHALER Inhale 2 (two) puffs every 6 (six) hours as needed for wheezing . ASPIRIN 81 MG CHEWABLE TABLET Chew and Swallow 1 (one) tablet (81 mg total) daily . CHOLECALCIFEROL, VITAMIN D3, 1,000 UNIT TABLET Take 1 (one) tablet (1,000 Units total) by mouth daily . DOXEPIN (SINEQUAN) 75 MG CAPSULE Take 1 (one) capsule (75 mg total) by mouth nightly as needed for sleep . DULOXETINE (CYMBALTA) 60 MG CAPSULE Take 1 (one) capsule (60 mg total) by mouth daily . FERROUS SULFATE 325 (65 FE) MG TABLET Take 1 (one) tablet (325 mg total) by mouth daily with breakfast . FLUTICASONE PROPIONATE (FLONASE) 50 MCG/ACTUATION NASAL SPRAY Instill 2 (two) sprays into each nostril daily . [id number] (TRELEGY ELLIPTA) 200-62.5-25 MCG DSDV Inhale 1 (one) Inhalation daily . LEVOTHYROXINE (SYNTHROID, LEVOTHROID) 175 MCG TABLET Take 1 (one) tablet (175 mcg total) by mouth once daily . LISINOPRIL (PRINIVIL,ZESTRIL) 40 MG TABLET Take 1 (one) tablet (40 mg total) by mouth daily . LOVASTATIN (MEVACOR) 10 MG TABLET Take 1 (one) tablet (10 mg total) by mouth nightly . METOPROLOL TARTRATE (LOPRESSOR) 100 MG TABLET Take 1 (one) tablet (100 mg total) by mouth 2 (two) times a day . NIFEDIPINE (ADALAT CC) 30 MG 24 HR TABLET Take 1 (one) tablet (30 mg total) by mouth daily . OMEPRAZOLE (PRILOSEC) 40 MG CAPSULE Take 1 (one) capsule (40 mg total) by mouth daily . OXYGEN Inhale 2 L/min as needed Per patient, only used when walking or with activity . TIZANIDINE (ZANAFLEX) 4 MG CAPSULE Take 1 (one) capsule (4 mg total) by mouth 2 (two) times a day . TIZANIDINE (ZANAFLEX) 4 MG TABLET Take 3 (three) tablets (12 mg total) by mouth at bedtime . TRIHEPTANOIN (DOJOLVI) 8.3 KCAL/ML LIQD Take 20 mL by mouth 3 (three) times a day . Modified Medications No medications on file Discontinued Medications No medications on file Allergies Allergen Reactions Penicillins Unknown and Other (See Comments) Was told as a child that she is allergic, but has never taken it to know the reaction. Childhood reaction Was told as a child that she is allergic, but has never taken it to know the reaction. Review of Systems All system(s) were reviewed. Pertinent positive and negative findings are noted in the HPI. All system negative unless otherwise noted in the HPI PACU Vitals 09/18/24 1300 BP: 135/80 Pulse: 70 SpO2: 98% G: NAD HEENT: Anicteric Chest/Lung: CTA c/l, no wheezes, rubs, or rales CVS: S1 S2 no S3,4, no galops, rubs or murmurs Ab: Soft, NT, ND no guarding or rigidity LE: No edema Skin: Intact Neuro: non Focal Psychiatric: non Suicidal, non homicidal Lab Results Component Value Date GLUCOSE 120 (H) 09/03/2024 CALCIUM 9.1 09/03/2024 NA 132 (L) 09/03/2024 K 5.7 (H) 09/03/2024 CL 98 09/03/2024 BUN 35 (H) 09/03/2024 CREATININE 1.61 (H) 09/03/2024 Lab Results Component Value Date INR 0.9 09/02/2024 INR 1.1 06/21/2022 INR 1.0 03/14/2022 PROTIME 12.5 09/02/2024 PROTIME 14.2 06/21/2022 PROTIME 12.6 03/14/2022 ECG reviewed: Sinus rhythm Holter monitor: sinus rhythm, NSVT Echocardiogram: reviewed Other workup reviewed ASSESSMENT & PLAN: See above Cb Boudreaux documented in this [id number] Instructions* Patient Instructions* Andree Veras RN - 09/09/2024 2:32 PM EST Images from the original note were not included. It was our pleasure to see you in EP Clinic today. Please contact: JASON Wall at [phone] JASON Candelario at [phone] FERMIN Downs RMA with questions, concerns, or if you need prescription refills before your next appointment. Cardiovascular Magnetic Resonance Imaging (Cardiac MRI) Cardiac not only analyzes the structure of the heart but can also provide quantitative assessment and achieve detailed, high quality images - all while avoiding ionizing radiation. MRI of the Heart: About This Test What is it? MRI (magnetic resonance imaging) is a test that uses a magnetic field and pulses of radio wave energy to make pictures of the organs and structures inside the body. An MRI of the heart looks at the structures and blood vessels of the heart. When you have an MRI, you lie on a table and the table moves into the MRI machine. A special dye (contrast material) may be put in a vein (IV) in your arm or hand to make the blood vessels easier to see on the scan. Why is this test done? An MRI of the heart is done to look at the structures and blood vessels of the heart. These may include: The heart muscle and the sac around the heart (pericardium). The heart valves. The coronary arteries. These are the blood vessels that bring blood to your heart muscle. The blood vessels that carry blood from the lungs to the heart. The aorta, which is a large blood vessel that carries blood from the heart to the rest of the body. How can you prepare for the test? Talk to your doctor about all of your health conditions before the test. For example, tell your doctor if: You are allergic to any medicines. You are or might be . You have a pacemaker, an artificial limb, any metal pins or metal parts in your body, metal heart valves, metal clips in your brain, metal implants in your ears, or any other implanted or prosthetic biomedical equipment technician. You have an intrauterine device (IUD) in place. You get nervous in confined spaces. You may need medicine to help you relax. You wear a patch that contains medicine. You have kidney disease. DO NOT take your morning medications. DO NOT take Metformin, or any medication containing Metformin, Glucophage, Glucovance, or Avandametthe morning of the test and the following 2 days. Please get blood work done on the second day and call our office before restarting the medication at [phone]. Please bring your morning medications with you. DO NOT have caffeine for 24 hours prior to your test. This includes drinks labeled decaffeinated. DO NOT eat or drink 4 hours prior to your test. No Smoking the day of your test. What happens before the test? You will remove all metal objects. These include hearing aids, dentures, jewelry, watches, and hairpins. You will take off all or most of your clothes and then change into a gown. If you do leave some clothes on, make sure you take everything out of your pockets. What happens during the test? You may have contrast material (dye) put into your arm or hand through a tube called an IV. You will lie on your back on a table that is part of the MRI scanner. Small pads or patches (electrodes) will be attached to your skin on each arm and leg and on your chest. A special paste or pad may go between the electrode and your skin. The electrodes are hooked toa machine that traces your heart activity onto a paper. The table will slide into the space that contains the magnet. Inside the scanner you will hear a fan and feel air moving. You may hear tapping, thumping, or snapping noises. You may be given earplugs or headphones to reduce the noise. You will be asked to hold still during the scan. You may be asked to hold your breath for short periods. You may be alone in the scanning room. But the technologist will watch you through a window. You will be able to talk to him or her through an intercom. What else should you know about the test? An MRI does not hurt. If a dye is used, you may feel a quick sting or pinch and some coolness when the IV is started. Thedye may give you a metallic taste in your mouth. Some people feel sick to their stomach or get a headache. If you breastfeed and are concerned about whether the dye used in this test is safe, talk to your doctor. Most experts believe that very little dye passes into breast milk and even less is passed on to the baby. But if you prefer, you can store some of your breast milk ahead of time and use it for a day or two after the test. You may feel warmth in the area being examined. This is normal. How long does the test take? The test usually takes 30 to 60 minutes but can take as long as 2 hours. What happens after the test? You will probably be able to go home right away, depending on the reason for the test. You can go back to your usual activities right away. If you had dye, drink plenty of fluids for 24 hours after the test to help flush it out of your body. documented in this [id number] History of Present illness Narrative* Jaspreet Barnes RN - 09/03/2024 6:50 PM EDT Patient discharged from our facility to home at this time by way of private car. Patient is alert and oriented x 4. Patient educated on home going instructions and home going medications. Patient verbalized understanding. Patient left with all personal belongings. * Marsha Miguel LISW - 09/03/2024 8:55 AM EDT Care Management Progress Note Date: 09/03/2024 Time: 8:56 AM Patient Name: Radha Shafer Date of : 1960 Discharge Plan: Plan A: Home Discharging Transportation Plan: Discharge Plan Status: Initial assessment completed by JASON Chairezwaiter, in the emergency department. Please refer to her note. Care Management will continue to follow. 1044- Patient is discharged home. Assessment and Background Information: documented in this [id number] Miscellaneous Notes* Plan of Care - Jaspreet Barnes RN - 09/03/2024 3:32 PM EDT Problem: Actual or potential alteration in health Goal: Absence of healthcare acquired conditions Outcome: Partially Met Goal: Knowledge of Interdisciplinary Plan of Care Outcome: Partially Met Goal: Knowledge of Enviroment Outcome: Partially Met * Quick Note - Kayla Mujica RN - 09/03/2024 1:25 AM EDT Patient provides paper regarding POC for disease. Patient demanding IVF at this time. This RN attempts to explain reasoning for no IVF at this time; patient remains adamant. RN advises patient to speak with rounding physician regarding POC. Stable at this time; will monitor. * Plan of Care - Kayla Mujica RN - 09/02/2024 10:57 PM EDT Problem: Actual or potential alteration in health Goal: Absence of healthcare acquired conditions Outcome: Met Goal: Knowledge of Interdisciplinary Plan of Care Outcome: Met Goal: Knowledge of Enviroment Outcome: Met * María Elena Langford - Kayla Mujica RN - 09/02/2024 8:00 PM EDT Patient medications verified with patient. Patient takes dojolvi TID; patient supplied medication sent to pharmacy for verification. Per patient,takes zanaflex prn at bed time; pharmacy notified of patient schedule. * Plan of Care - Cherie Dias RN - 09/02/2024 6:30 PM EDT Problem: Actual or potential alteration in health Goal: Absence of healthcare acquired conditions 09/02/2024 1830 by Cherie Dias RN Outcome: Partially Met 09/02/2024 1830 by Cherie Dias RN Outcome: Partially Met Goal: Knowledge of Interdisciplinary Plan of Care 09/02/2024 183 by Cherie Dias RN Outcome: Partially Met 09/02/2024 183 by Cherie Dias RN Outcome: Partially Met Goal: Knowledge of Enviroment 09/02/2024 183 by Cherie Dias RN Outcome: Partially Met 09/02/2024 1830 by Cherie Dias RN Outcome: Partially Met * Plan of Care - Cherie Dias RN - 09/02/2024 6:30 PM EDT Problem: Actual or potential alteration in health Goal: Absence of healthcare acquired conditions Outcome: Partially Met Goal: Knowledge of Interdisciplinary Plan of Care Outcome: Partially Met Goal: Knowledge of Enviroment Outcome: Partially Met documented in this [id number] Plan of care note* Plan of Care - Jaspreet Barnes RN - 09/03/2024 3:32 PM EDT Problem: Actual or potential alteration in health Goal: Absence of healthcare acquired conditions Outcome: Partially Met Goal: Knowledge of Interdisciplinary Plan of Care Outcome: Partially Met Goal: Knowledge of Enviroment Outcome: Partially Met [id number] NoteHMS DISCHARGE SUMMARY -- [facility] Radha Shafer Admitted: 09/02/2024 Discharge Date: 09/03/24 PCP Handoff Recommended Outpatient Testing Follow up with junior paralegal Results Pending At Discharge none Clinical Summary Acute hypoxemic hypercarbic respiratory failure Acute exacerbation of COPD: Presenting with worsening shortness of breath over the last 4 days no clear pneumonia on x-ray currently on BiPAP because of respiratory acidosis and hypercarbia Suspected related to COPD and or Transferase defeiciencey Back to her basline of 4 liters 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 Cpk 600, creatine normal. - will givee 500 cc fluids and dc with close outpatient follow up Left knee pain Left leg swelling X-ray and Ortho consult ordered by ED physician DVT negative. Hypothyroidism: H/o thyroid cancer: TSH 0.31 on 09/24/2022 will recheck Levothyroxine 175 mics daily GERD: PPI HTN Hyperlipidemia On lisinopril, Nifedipine and metoprolol Continue statin Obesity, BMI 39: Encourage diet modification, active lifestyle, and weight reduction Depression: Wellbutrin, Cymbalta FELISA: Non-compliant with CPAP Oxygen as needed Discharge Medications Discharge Medications Modified Medications Details metoprolol tartrate 100 MG tablet Commonly known as: LOPRESSOR What changed: Another medication with the same name was removed. Continue taking this medication, and follow the directions you see here. Take 1 (one) tablet (100 mg total) by mouth 2 (two) times a day . Medications To Continue Details * albuterol 0.63 mg/3 mL nebulizer solution Commonly known as: ACCUNEB Take 3 mL (0.63 mg total) by nebulization every 6 (six) hours as needed for wheezing . * albuterol 90 mcg/actuation inhaler Inhale 2 (two) puffs every 6 (six) hours as needed for wheezing . aspirin 81 mg chewable tablet Chew and Swallow 1 (one) tablet (81 mg total) daily . buPROPion 75 MG tablet Commonly known as: WELLBUTRIN Take 1 (one) tablet (75 mg total) by mouth daily . chlorthalidone 25 MG tablet Commonly known as: HYGROTON Take 1 (one) tablet (25 mg total) by mouth daily . Quantity: 30 tablet cholecalciferol (vitamin D3) 1,000 unit tablet Take 1 (one) tablet (1,000 Units total) by mouth daily . Dojolvi 8.3 kcal/mL Liqd Generic drug: triheptanoin Take 20 mL by mouth 3 (three) times a day . doxepin 75 MG capsule Commonly known as: SINEQUAN Take 1 (one) capsule (75 mg total) by mouth nightly as needed for sleep . DULoxetine 60 MG capsule Commonly known as: CYMBALTA Take 1 (one) capsule (60 mg total) by mouth daily . ferrous sulfate 325 (65 FE) MG tablet Take 1 (one) tablet (325 mg total) by mouth daily with breakfast . fluticasone propionate 50 mcg/actuation nasal spray Commonly known as: FLONASE Instill 2 (two) sprays into each nostril daily . Quantity: 16 g levothyroxine 175 MCG tablet Commonly known as: SYNTHROID, LEVOTHROID Take 1 (one) tablet (175 mcg total) by mouth once daily . lisinopriL 40 MG tablet Commonly known as: PRINIVIL,ZESTRIL Take 1 (one) tablet (40 mg total) by mouth daily . lovastatin 10 MG tablet Commonly known as: MEVACOR Take 1 (one) tablet (10 mg total) by mouth nightly . NIFEdipine 30 MG 24 hr tablet Commonly known as: ADALAT CC Take 1 (one) tablet (30 mg total) by mouth daily . omeprazole 40 MG capsule Commonly known as: PRILOSEC Take 1 (one) capsule (40 mg total) by mouth daily . oxygen Inhale 2 L/min as needed Per patient, only used when walking or with activity . * tiZANidine 4 MG capsule Commonly known as: ZANAFLEX Take 1 (one) capsule (4 mg total) by mouth 2 (two) times a day . * tiZANidine 4 MG tablet Commonly known as: ZANAFLEX Take 3 (three) tablets (12 mg total) by mouth at bedtime . Trelegy Ellipta 200-62.5-25 mcg Dsdv Generic drug: rtdgqptjezt-phxveifob-jenoeqpc Inhale 1 (one) Inhalation daily . Quantity: 60 each * There are duplicate medications prescribed to the patient Stopped Medications metoprolol tartrate 25 MG tablet Commonly known as: LOPRESSOR You also have another medication with the same name that you need to continue taking as instructed. Physician(s) Follow Up: No follow-up provider specified. Condition at Discharge: Stable Disposition: Home I reviewed discharge recommendations with the patient in person. Patient instructions, including activity, were given to the patient/family at discharge. On day of discharge I saw Radha Shafer and spent: > 30 minutes on discharge. Completed by: Ramírez Norton (more content not included)...[facility] 09-03-2024 Hospital course Narrative* Ramírez Cunningham MD - 09/03/2024 9:38 AM EDT Images from the original note were not included. [facility] [place] -- [facility] Radha Shafer Admitted: 09/02/2024 Discharge Date: 09/03/24 PCP Handoff Recommended Outpatient Testing Follow up with junior paralegal Results Pending At Discharge none Clinical Summary Acute hypoxemic hypercarbic respiratory failure Acute exacerbation of COPD: Presenting with worsening shortness of breath over the last 4 days no clear pneumonia on x-ray currently on BiPAP because of respiratory acidosis and hypercarbia Suspected related to COPD and or Transferase defeiciencey Back to her basline of 4 liters 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 Cpk 600, creatine normal. - will givee 500 cc fluids and dc with close outpatient follow up Left knee pain Left leg swelling X-ray and Ortho consult ordered by ED physician DVT negative. Hypothyroidism: H/o thyroid cancer: TSH 0.31 on 09/24/2022 will recheck Levothyroxine 175 mics daily GERD: PPI HTN Hyperlipidemia On lisinopril, Nifedipine and metoprolol Continue statin Obesity, BMI 39: Encourage diet modification, active lifestyle, and weight reduction Depression: Wellbutrin, Cymbalta FELISA: Non-compliant with CPAP Oxygen as needed Discharge Medications Discharge Medications Modified Medications Details metoprolol tartrate 100 MG tablet Commonly known as: LOPRESSOR What changed: Another medication with the same name was removed. Continue taking this medication, and follow the directions you see here. Take 1 (one) tablet (100 mg total) by mouth 2 (two) times a day . Medications To Continue Details * albuterol 0.63 mg/3 mL nebulizer solution Commonly known as: ACCUNEB Take 3 mL (0.63 mg total) by nebulization every 6 (six) hours as needed for wheezing . * albuterol 90 mcg/actuation inhaler Inhale 2 (two) puffs every 6 (six) hours as needed for wheezing . aspirin 81 mg chewable tablet Chew and Swallow 1 (one) tablet (81 mg total) daily . buPROPion 75 MG tablet Commonly known as: WELLBUTRIN Take 1 (one) tablet (75 mg total) by mouth daily . chlorthalidone 25 MG tablet Commonly known as: HYGROTON Take 1 (one) tablet (25 mg total) by mouth daily . Quantity: 30 tablet cholecalciferol (vitamin D3) 1,000 unit tablet Take 1 (one) tablet (1,000 Units total) by mouth daily . Dojolvi 8.3 kcal/mL Liqd Generic drug: triheptanoin Take 20 mL by mouth 3 (three) times a day . doxepin 75 MG capsule Commonly known as: SINEQUAN Take 1 (one) capsule (75 mg total) by mouth nightly as needed for sleep . DULoxetine 60 MG capsule Commonly known as: CYMBALTA Take 1 (one) capsule (60 mg total) by mouth daily . ferrous sulfate 325 (65 FE) MG tablet Take 1 (one) tablet (325 mg total) by mouth daily with breakfast . fluticasone propionate 50 mcg/actuation nasal spray Commonly known as: FLONASE Instill 2 (two) sprays into each nostril daily . Quantity: 16 g levothyroxine 175 MCG tablet Commonly known as: SYNTHROID, LEVOTHROID Take 1 (one) tablet (175 mcg total) by mouth once daily . lisinopriL 40 MG tablet Commonly known as: PRINIVIL,ZESTRIL Take 1 (one) tablet (40 mg total) by mouth daily . lovastatin 10 MG tablet Commonly known as: MEVACOR Take 1 (one) tablet (10 mg total) by mouth nightly . NIFEdipine 30 MG 24 hr tablet Commonly known as: ADALAT CC Take 1 (one) tablet (30 mg total) by mouth daily . omeprazole 40 MG capsule Commonly known as: PRILOSEC Take 1 (one) capsule (40 mg total) by mouth daily . oxygen Inhale 2 L/min as needed Per patient, only used when walking or with activity . * tiZANidine 4 MG capsule Commonly known as: ZANAFLEX Take 1 (one) capsule (4 mg total) by mouth 2 (two) times a day . * tiZANidine 4 MG tablet Commonly known as: ZANAFLEX Take 3 (three) tablets (12 mg total) by mouth at bedtime . Trelegy Ellipta 200-62.5-25 mcg Dsdv Generic drug: kcwuaypqqrb-swwguwkbu-wbzxzizi Inhale 1 (one) Inhalation daily . Quantity: 60 each * There are duplicate medications prescribed to the patient Stopped Medications metoprolol tartrate 25 MG tablet Commonly known as: LOPRESSOR You also have another medication with the same name that you need to continue taking as instructed. Physician(s) Follow Up: No follow-up provider specified. Condition at Discharge: Stable Disposition: Home I reviewed discharge recommendations with the patient in person. Patient instructions, including activity, were given to the patient/family at discharge. On day of discharge I saw Radha Shafer and spent: > 30 minutes on discharge. Completed by: Ramírez Cunningham MD on 09/03/24, 9:38 AM documented in this [id number] Progress note* Quick Note - Kayla Mujica RN - 09/03/2024 1:25 AM EDT Patient provides paper regarding POC for disease. Patient demanding IVF at this time. This RN attempts to explain reasoning for no IVF at this time; patient remains adamant. RN advises patient to speak with rounding physician regarding POC. Stable at this time; will monitor. [id number] Plan of care note* Plan of Care - Kayla Mujica RN - 09/02/2024 10:57 PM EDT Problem: Actual or potential alteration in health Goal: Absence of healthcare acquired conditions Outcome: Met Goal: Knowledge of Interdisciplinary Plan of Care Outcome: Met Goal: Knowledge of Enviroment Outcome: Met [id number] Progress note* Quick Note - Kayla Mujica RN - 09/02/2024 8:00 PM EDT Patient medications verified with patient. Patient takes dojolvi TID; patient supplied medication sent to pharmacy for verification. Per patient,takes zanaflex prn at bed time; pharmacy notified of patient schedule. [id number] Plan of care note* Plan of Care - Cherie Dias RN - 09/02/2024 6:30 PM EDT Problem: Actual or potential alteration in health Goal: Absence of healthcare acquired conditions 09/02/2024 1830 by Cherie Dias RN Outcome: Partially Met 09/02/2024 1830 by Cherie Dias RN Outcome: Partially Met Goal: Knowledge of Interdisciplinary Plan of Care 09/02/2024 183 by Cherie Dias RN Outcome: Partially Met 09/02/2024 183 by Cherie Dias RN Outcome: Partially Met Goal: Knowledge of Enviroment 09/02/2024 183 by Cherie Dias RN Outcome: Partially Met 09/02/2024 183 by Cherie Dias RN Outcome: Partially Met [id number] Plan of care note* Plan of Care - Cherie Dias RN - 09/02/2024 6:30 PM EDT Problem: Actual or potential alteration in health Goal: Absence of healthcare acquired conditions Outcome: Partially Met Goal: Knowledge of Interdisciplinary Plan of Care Outcome: Partially Met Goal: Knowledge of Enviroment Outcome: Partially Met [id number] Consult note* Mihaela Carroll RN - 09/02/2024 3:51 PM EDT Care Management Consult Note Date: 09/02/2024 Time: 3:51 PM Patient Name: Radha Shafer Date of : 1960 Reason for Consult: Discharge Plan: Plan A: Home Discharging Transportation Plan: Discharge Plan Status: TBD Assessment and Background Information: Patient presented to the ED after office visit and SOB. Labs and x-rays completed in the ED; Total CK 659, Troponin 18, BUN 37, Creatine 2.09. Patient stated that her PCP is Dr. Tomas in [place] and her insurance is [facility] managed medicare and medicaid. Patient stated that she lives at home in a 2 story home with her granddaughter. The patient lives on the main floor. Granddaughter stated that there are a lot of people that live in the home. Patientstated that she is compliant with all medications and that there is no insecurities with food/ medical to report. Patient stated that there is no services in the home at this time and that the granddaughter provides the care that the patient needs. Granddaughter has a baby due in 9 days, offered [facility] services is needed and granddaughter declined stated that she is very picky about the care the patient gets and the people in her home. Patient stated she has had a fall in the last 6 months and that she still drives. Patient stated that she does not drink but does smoke weed daily for the pain. Patient stated that she has medical mariajuana card. Patient uses 02 @4L PRN via [place] at home supplier is [employer], and the patient is bi-pap at this time in the ED. Patient stated that she does need some help with ADL's and that the family is aware of her wishes if she was not able to make them. Patient stated that she does have chronic pain in her back and that interferes with daily living activities. No additional needs verbalized at this time. Patient will be moved to the medical floor for furthertreatment. CM to follow. Living Arrangements: Children, Family members Support Systems: Children, Family members Type of Residence: Private residence Prior to Admission Home Care Services: No Current Home Equipment: Wheel chair, Walker, Cane Holistic Assessment Medication adherence problem:: No History of falls in last 6 months:: (!) Yes Family aware of the patient's advance care planning wishes:: Yes Do you have any cultural/spiritual connections or beliefs that would impact how we deliver your care?: No Chronic pain:: (!) Yes Location of chronic pain:: back Chronic pain timing:: Constant Limitation of routine activities due to chronic pain:: Yes [id number] Emergency department Note* Tram Perez RN - 09/02/2024 3:51 PM EDT Report called to receiving RN. All questions answered [id number] Consult note* Mihaela Carroll RN - 09/02/2024 3:51 PM EDT Care Management Consult Note Date: 09/02/2024 Time: 3:51 PM Patient Name: Radha Shafer Date of : 1960 Reason for Consult: Discharge Plan: Plan A: Home Discharging Transportation Plan: Discharge Plan Status: TBD Assessment and Background Information: Patient presented to the ED after office visit and SOB. Labs and x-rays completed in the ED; Total CK 659, Troponin 18, BUN 37, Creatine 2.09. Patient stated that her PCP is Dr. Tomas in [place] and her insurance is [facility] managed medicare and medicaid. Patient stated that she lives at home in a 2 story home with her granddaughter. The patient lives on the main floor. Granddaughter stated that there are a lot of people that live in the home. Patientstated that she is compliant with all medications and that there is no insecurities with food/ medical to report. Patient stated that there is no services in the home at this time and that the granddaughter provides the care that the patient needs. Granddaughter has a baby due in 9 days, offered [facility] services is needed and granddaughter declined stated that she is very picky about the care the patient gets and the people in her home. Patient stated she has had a fall in the last 6 months and that she still drives. Patient stated that she does not drink but does smoke weed daily for the pain. Patient stated that she has medical mariajuana card. Patient uses 02 @4L PRN via [place] at home supplier is [employer], and the patient is bi-pap at this time in the ED. Patient stated that she does need some help with ADL's and that the family is aware of her wishes if she was not able to make them. Patient stated that she does have chronic pain in her back and that interferes with daily living activities. No additional needs verbalized at this time. Patient will be moved to the medical floor for furthertreatment. CM to follow. Living Arrangements: Children, Family members Support Systems: Children, Family members Type of Residence: Private residence Prior to Admission Home Care Services: No Current Home Equipment: Wheel chair, Walker, Cane Holistic Assessment Medication adherence problem:: No History of falls in last 6 months:: (!) Yes Family aware of the patient's advance care planning wishes:: Yes Do you have any cultural/spiritual connections or beliefs that would impact how we deliver your care?: No Chronic pain:: (!) Yes Location of chronic pain:: back Chronic pain timing:: Constant Limitation of routine activities due to chronic pain:: Yes documented in this [id number] Emergency department Note* Tram Perez RN - 09/02/2024 3:51 PM EDT Report called to receiving RN. All questions answered * Tram Perez RN - 09/02/2024 2:34 PM EDT Pt family member Marylu called and updated. All questions answered. She states she will talk to additional family members and pass info along. * Anna Dutton PSA - 09/02/2024 2:17 PM EDT PT'S DAUGHTER LUIS CALLED FOR AN UPDATE. JASON CHAND NOTIFIED. FAMILY CAN BE REACHED AT [phone]. * Anna Dutton PSA - 09/02/2024 1:36 PM EDT PT'S GRAND DAUGHTER MARYLU CALLED FOR AN UPDATE. SHE CAN BE CALLED AT [phone]. JASON CHAND NOTIFIED. * Tram Perez RN - 09/02/2024 12:00 PM EDT Hourly rounding assessment completed on the patient. [x] Patient updated on plan of care [x] All comfort needs addressed [x] Patient updated on duration of visit All questions answered, patient denies further needs. Call light within reach. * Tram Perez RN - 09/02/2024 11:23 AM EDT Pt from orthopedic office. Pt c/o SOB. Pt wears 4lpm PRN at home, presented to ED on RA. Pt was 77%on RA. Pt with non productive cough. Placed on 6lpm NC, O2 sat improved to 99%. Pt unable to speak in full sentences and tripoding d/t SOB documented in this [id number] Emergency department Note* Tram Perez RN - 09/02/2024 2:34 PM EDT Pt family member Marylu called and updated. All questions answered. She states she will talk to additional family members and pass info along. [id number] Emergency department Note* Anna Dutton PSA - 09/02/2024 2:17 PM EDT PT'S DAUGHTER LUIS CALLED FOR AN UPDATE. JASON CHAND NOTIFIED. FAMILY CAN BE REACHED AT [phone]. [id number] Emergency department Note* Anna Dutton PSA - 09/02/2024 1:36 PM EDT PT'S GRAND DAUGHTER MARYLU CALLED FOR AN UPDATE. SHE CAN BE CALLED AT [phone]. JASON CHAND NOTIFIED. [id number] History and physical note* Nabila Lama MD - 09/02/2024 12:39 PM EDT [facility] [place] [facility] -- [facility] Patient Name: Radha Shafer : 1960 MR #: [id number] Admit Date: 09/02/2024 Physicians: No, Physician (Family); No ref. provider found (Referring) aRdha Shafer is a 64 y.o. female patient of No, Physician with history of COPD chronic hypoxemic respiratory failure on 4 L of oxygen at home also history of hypertension myopathy with enzyme deficiency, hypothyroidism, GERD, hypertension, obesity and obstructive sleep apnea on CPAP presented to [facility] on 09/02/2024 with worsening shortness of breath and right knee pain. Acute hypoxemic hypercarbic respiratory failure Acute exacerbation of COPD: Presenting with worsening shortness of breath over the last 4 days no clear pneumonia on x-ray currently on BiPAP because of respiratory acidosis and hypercarbia Admit to stepdown level Continue NIPPV support and wean as tolerated Continue inhaled bronchodilator/corticosteroid As needed DuoNebs IV Solu-Medrol P.o. 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: Continue home triheptanoin Avoiding statin due to history of rhabdomyolysis Continue Zanaflex Hypothyroidism: H/o thyroid cancer: TSH 0.31 on 09/24/2022 will recheck Levothyroxine 175 mics daily GERD: PPI HTN Hyperlipidemia On lisinopril, Nifedipine and metoprolol Continue statin Obesity, BMI 39: Encourage diet modification, active lifestyle, and weight reduction Depression: Wellbutrin, Cymbalta FELISA: Non-compliant with CPAP Oxygen as needed acute exacerbation of Residence prior to admission: house or apartment Was patient transferred from outlying hospital or ED no Quality Measures DVT Prophylaxis: lovenox Diaz Catheter: absent Medication Reconciliation: Verified Admitted with these risk variables:Acute Respiratory Failure and Chronic Kidney Disease. Please seeassessment and plan for further details. Estimated Date of Discharge greater than 2 midnights Code Status Full Code; code status verified on 09/02/2024 with patient (capacity intact) Chief Complaint shortness of breath History of Present Illness Radha Shafer is a 64 y.o. female patient of No, Physician with history of COPD chronic hypoxemic respiratory failure on 4 L of oxygen at home also history of hypertension myopathy with enzyme deficiency, hypothyroidism, GERD, hypertension, obesity and obstructive sleep apnea on CPAP presented to [facility] on 09/02/2024 with worsening shortness of breath and right knee pain. Patient presents emergency room with 4-day history of worsening shortness of breath. Does have COPD and sleep apnea on CPAP and 4 L oxygen all the time at home coming with increased oxygen requirement hypoxemia shortness of breath and mild dry cough. Denies any fever or chills no chest pain She mentioned that she fell about 10 days ago and she was in the orthopedic office earlier today when they found that she is short of breath and sent emergency room for evaluation. She has been having pain in the left knee area with swelling of the left leg since her fall. In the emergency room her temperature was 98.5 heart rate was 95 respirate 26 blood pressure 115/92her sat initially was 77% currently on NIPPV her pH was 7.24 and pCO2 was 67. Chemistry showed a BUN 37 creatinine 2.09 at baseline her CK was 659 troponin was 18 white count 7000 H&H 12 and 40 platelets 290,000 Chest x-ray shows COPD changes no acute airspace disease Past Medical History Past Medical History: Diagnosis Date Anxiety Arthritis Back pain Bladder problem incontinence Cancer (HCC) thyroid Chronic pain disorder Colitis sigmoid COPD (chronic obstructive pulmonary disease) (HCC) 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HCC) Per pt. - Depression Diabetes (HCC) Diverticulosis Emphysema of lung (HCC) GERD (gastroesophageal reflux disease) Hepatic steatosis History of echocardiogram History of stress test Hypertension Hypothyroidism Kidney disease, chronic, stage I (GFR over 89 ml/min) stage 3 Lung nodule Neuromuscular disorder (HCC) 2015 I have cpt2 difficency Obesity On home oxygen therapy 2L via NC, PRN with walking, activity Scoliosis 03/2022 Sleep apnea noncompliant with CPAP; uses home oxygen Sleep apnea, obstructive Past Surgical History Past Surgical History: Procedure Laterality Date ALTEMEIER PROCEDURE N/A 03/30/2022 Procedure: ALTEMEIER PROCEDURE; Surgeon: Jada Vargas MD; [place] [facility] [place]; Service: Colorectal CARDIAC CATHETERIZATION N/A 09/26/2022 Procedure: Coronary Angiogram; Surgeon: Tor Long MD; Location: [facility]; Service: Cardiovascular CARDIOVASCULAR STRESS TEST CHOLECYSTECTOMY COLONOSCOPY with biopsies COLONOSCOPY N/A 02/17/2022 Procedure: COLONOSCOPY; Surgeon: Jada Vargas MD; [place] [facility] [place]; Service: Colorectal EGD N/A 08/15/2022 Procedure: ESOPHAGOGASTRODUODENOSCOPY WITH BIOPSY; Surgeon: Tyshawn Santos MD; Location: Endo; Service: Gastroenterology GALLBLADDER HC LEFT HEART CATH N/A 09/26/2022 Procedure: Left Heart Cath; Surgeon: Tor Long MD; Location: [facility]; Service: Cardiovascular HYSTERECTOMY JOINT REPLACEMENT Left knee ORTHOPEDIC SURGERY r wrist surgery, left ankle, right rotator cuff ROTATOR CUFF REPAIR Right SIGMOIDOSCOPY FLEXIBLE N/A 06/23/2022 Procedure: SIGMOIDOSCOPY FLEXIBLE WITH BIOPSY; Surgeon: Tyshawn Santos MD; Location: Endo; Service: Gastroenterology THYROIDECTOMY N/A 07/15/2015 Procedure: TOTAL THYROIDECTOMY; Surgeon: Lopez Alonso MD; Location: [facility] OR; Service: US ECHO TRANSTHORACIC FOLLOWUP LIMITED WRIST SURGERY Right Family History Family History Problem Relation Age of Onset Heart disease Mother Lupus Mother Stroke Mother Arthritis Mother Heart attack Mother Heart disease Father Heart attack Father Hypertension Father Hypertension Sister Hypertension Brother Prostate cancer Brother Colon cancer Brother Hypertension Brother Prostate cancer Brother Colon cancer Brother Hypertension Brother Prostate cancer Brother Stomach cancer Brother Heart attack Maternal Grandmother Heart attack Maternal Grandfather Heart attack Paternal Grandmother Heart attack Paternal Grandfather Breast cancer Neg Hx Social History Social History Tobacco Use Smoking Status Former Current packs/day: 0.00 Average packs/day: 1 pack/day for 20.0 years (20.0 ttl pk-yrs) Types: Cigarettes Start date: 07/10/1993 Quit date: 07/10/2013 Years since quittin.1 Smokeless Tobacco Never Social History Substance and Sexual Activity Alcohol Use No Social History Substance and Sexual Activity Drug Use Yes Frequency: 7.0 times per week Types: Marijuana Comment: currently using daily for pain and depression. Allergy Information I have reviewed the patient's allergies. Penicillins Home Medications Home medications were reviewed. Review Of Systems All relevant systems have been reviewed and are negative except as noted in HPI or below Physical Examination BP (!) 152/82 Pulse 69 Temp 98.5 F (36.9 C) (Oral) Resp 18 Ht 5' 5 Wt 107.5 kg (237 lb) SpO2 99% BMI 39.44 kg/m General Appearance: alert; acutely ill appearing; in moderate acute distress HEENT: Head- normocephalic; Eyes- EOMI, sclera anicteric; Throat- mucous membranes moist Cardiovascular: regular rate and rhythm; normal S1, S2; no murmurs, rubs, clicks or gallops; peripheral edema 3+ in the left Respiratory: lungs clear to auscultation; without wheezes, rales or rhonchi; on BIPAP Abdomen: soft, non-tender, non-distended Neurological: oriented x 3; normal speech; no focal findings or movement disorder noted Musculoskeletal: no significant deformity or tenderness to palpation Skin: normal coloration Psych: normal mood and affect [id number] NoteHMS HISTORY AND PHYSICAL -- [facility] Patient Name: Radha Shafer : 1960 MR #: [id number] Admit Date: 09/02/2024 Physicians: Erin, Physician (Family); No ref. provider found (Referring) Radha Shafer is a 64 y.o. female patient of Erin Physician with history of COPD chronic hypoxemic respiratory failure on 4 L of oxygen at home also history of hypertension myopathy with enzyme deficiency, hypothyroidism, GERD, hypertension, obesity and obstructive sleep apnea on CPAP presented to [facility] on 09/02/2024 with worsening shortness of breath and right knee pain. Acute hypoxemic hypercarbic respiratory failure Acute exacerbation of COPD: Presenting with worsening shortness of breath over the last 4 days no clear pneumonia on x-ray currently on BiPAP because of respiratory acidosis and hypercarbia Admit to stepdown level Continue NIPPV support and wean as tolerated Continue inhaled bronchodilator/corticosteroid As needed DuoNebs IV Solu-Medrol P.o. 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: Continue home triheptanoin Avoiding statin due to history of rhabdomyolysis Continue Zanaflex Hypothyroidism: H/o thyroid cancer: TSH 0.31 on 09/24/2022 will recheck Levothyroxine 175 mics daily GERD: PPI HTN Hyperlipidemia On lisinopril, Nifedipine and metoprolol Continue statin Obesity, BMI 39: Encourage diet modification, active lifestyle, and weight reduction Depression: Wellbutrin, Cymbalta FELISA: Non-compliant with CPAP Oxygen as needed acute exacerbation of Residence prior to admission: house or apartment Was patient transferred from outlying hospital or ED no Quality Measures DVT Prophylaxis: lovenox Diaz Catheter: absent Medication Reconciliation: Verified Admitted with these risk variables:Acute Respiratory Failure and Chronic Kidney Disease. Please see assessment and plan for further details. Estimated Date of Discharge greater than 2 midnights Code Status Full Code; code status verified on 09/02/2024 with patient (capacity intact) Chief Complaint shortness of breath History of Present Illness Radha Shafer is a 64 y.o. female patient of , Physician with history of COPD chronic hypoxemic respiratory failure on 4 L of oxygen at home also history of hypertension myopathy with enzyme deficiency, hypothyroidism, GERD, hypertension, obesity and obstructive sleep apnea on CPAP presented to [facility] on 09/02/2024 with worsening shortness of breath and right knee pain. Patient presents emergency room with 4-day history of worsening shortness of breath. Does have COPD and sleep apnea on CPAP and 4 L oxygen all the time at home coming with increased oxygen requirement hypoxemia shortness of breath and mild dry cough. Denies any fever or chills no chest pain She mentioned that she fell about 10 days ago and she was in the orthopedic office earlier today when they found that she is short of breath and sent emergency room for evaluation. She has been having pain in the left knee area with swelling of the left leg since her fall. In the emergency room her temperature was 98.5 heart rate was 95 respirate 26 blood pressure 115/92 her sat initially was 77% currently on NIPPV her pH was 7.24 and pCO2 was 67. Chemistry showed a BUN 37 creatinine 2.09 at baseline her CK was 659 troponin was 18 white count 7000 H&H 12 and 40 platelets 290,000 Chest x-ray shows COPD changes no acute airspace disease Past Medical History Past Medical History: Diagnosis Date Anxiety Arthritis Back pain Bladder problem incontinence Cancer (HCC) thyroid Chronic pain disorder Colitis sigmoid COPD (chronic obstructive pulmonary disease) (HCC) 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HCC) Per pt. - Depression Diabetes (HCC) Diverticulosis Emphysema of lung (HCC) GERD (gastroesophageal reflux disease) Hepatic steatosis History of echocardiogram History of stress test Hypertension Hypothyroidism Kidney disease, chronic, stage I (GFR over 89 ml/min) stage 3 Lung nodule Neuromuscular disorder ([facility]) 2015 I have cpt2 difficency Obesity On home oxygen therapy 2L via NC, PRN with walking, activity Scoliosis 03/2022 Sleep apnea noncompliant with CPAP; uses home oxygen Sleep apnea, obstructive Past Surgical History Past Surgical History: Procedure Laterality Date ALTEMEIER PROCEDURE N/A 03/30/2022 Procedure: ALTEMEIER PROCEDURE; Surgeon: Jada Vargas MD; [place] [facility] [place]; Service: Colorectal CARDIAC CATHETERIZATION N/A 09/26/2022 Procedure: Coronary Angiogram; Surgeon: Tor Long MD; Location: [facility]; Service: Cardiovascular CARDIOVASCULAR STRESS TEST CHOL (more content not included)...[facility]10-28-2024 History and physical note* Nabila Lama MD - 09/02/2024 12:39 PM EDT [facility] [place]YSICAL -- [facility] Patient Name: Radha Shafer : 1960 MR #: [id number] Admit Date: 09/02/2024 Physicians: No, Physician (Family); No ref. provider found (Referring) Radha Shafer is a 64 y.o. female patient of No, Physician with history of COPD chronic hypoxemic respiratory failure on 4 L of oxygen at home also history of hypertension myopathy with enzyme deficiency, hypothyroidism, GERD, hypertension, obesity and obstructive sleep apnea on CPAP presented to [facility] on 09/02/2024 with worsening shortness of breath and right knee pain. Acute hypoxemic hypercarbic respiratory failure Acute exacerbation of COPD: Presenting with worsening shortness of breath over the last 4 days no clear pneumonia on x-ray currently on BiPAP because of respiratory acidosis and hypercarbia Admit to stepdown level Continue NIPPV support and wean as tolerated Continue inhaled bronchodilator/corticosteroid As needed DuoNebs IV Solu-Medrol P.o. 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: Continue home triheptanoin Avoiding statin due to history of rhabdomyolysis Continue Zanaflex Hypothyroidism: H/o thyroid cancer: TSH 0.31 on 09/24/2022 will recheck Levothyroxine 175 mics daily GERD: PPI HTN Hyperlipidemia On lisinopril, Nifedipine and metoprolol Continue statin Obesity, BMI 39: Encourage diet modification, active lifestyle, and weight reduction Depression: Wellbutrin, Cymbalta FELISA: Non-compliant with CPAP Oxygen as needed acute exacerbation of Residence prior to admission: house or apartment Was patient transferred from outlying hospital or ED no Quality Measures DVT Prophylaxis: lovenox Diaz Catheter: absent Medication Reconciliation: Verified Admitted with these risk variables:Acute Respiratory Failure and Chronic Kidney Disease. Please seeassessment and plan for further details. Estimated Date of Discharge greater than 2 midnights Code Status Full Code; code status verified on 09/02/2024 with patient (capacity intact) Chief Complaint shortness of breath History of Present Illness Radha Shafer is a 64 y.o. female patient of , Physician with history of COPD chronic hypoxemic respiratory failure on 4 L of oxygen at home also history of hypertension myopathy with enzyme deficiency, hypothyroidism, GERD, hypertension, obesity and obstructive sleep apnea on CPAP presented to [facility] on 09/02/2024 with worsening shortness of breath and right knee pain. Patient presents emergency room with 4-day history of worsening shortness of breath. Does have COPD and sleep apnea on CPAP and 4 L oxygen all the time at home coming with increased oxygen requirement hypoxemia shortness of breath and mild dry cough. Denies any fever or chills no chest pain She mentioned that she fell about 10 days ago and she was in the orthopedic office earlier today when they found that she is short of breath and sent emergency room for evaluation. She has been having pain in the left knee area with swelling of the left leg since her fall. In the emergency room her temperature was 98.5 heart rate was 95 respirate 26 blood pressure 115/92her sat initially was 77% currently on NIPPV her pH was 7.24 and pCO2 was 67. Chemistry showed a BUN 37 creatinine 2.09 at baseline her CK was 659 troponin was 18 white count 7000 H&H 12 and 40 platelets 290,000 Chest x-ray shows COPD changes no acute airspace disease Past Medical History Past Medical History: Diagnosis Date Anxiety Arthritis Back pain Bladder problem incontinence Cancer (HCC) thyroid Chronic pain disorder Colitis sigmoid COPD (chronic obstructive pulmonary disease) ([facility]) 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[facility]) Per pt. - Depression Diabetes (HCC) Diverticulosis Emphysema of lung (HCC) GERD (gastroesophageal reflux disease) Hepatic steatosis History of echocardiogram History of stress test Hypertension Hypothyroidism Kidney disease, chronic, stage I (GFR over 89 ml/min) stage 3 Lung nodule Neuromuscular disorder (HCC) 2016 I have cpt2 difficency Obesity On home oxygen therapy 2L via NC, PRN with walking, activity Scoliosis 03/2022 Sleep apnea noncompliant with CPAP; uses home oxygen Sleep apnea, obstructive Past Surgical History Past Surgical History: Procedure Laterality Date ALTEMEIER PROCEDURE N/A 03/30/2022 Procedure: ALTEMEIER PROCEDURE; Surgeon: Jada Vargas MD; [place] [facility] [place]; Service: Colorectal CARDIAC CATHETERIZATION N/A 09/26/2022 Procedure: Coronary Angiogram; Surgeon: Tor Long MD; Location: [facility]; Service: Cardiovascular CARDIOVASCULAR STRESS TEST CHOLECYSTECTOMY COLONOSCOPY with biopsies COLONOSCOPY N/A 02/17/2022 Procedure: COLONOSCOPY; Surgeon: Jada Vargas MD; [place] [facility] [place]; Service: Colorectal EGD N/A 08/15/2022 Procedure: ESOPHAGOGASTRODUODENOSCOPY WITH BIOPSY; Surgeon: Tyshawn Santos MD; Location: [facility]; Service: Gastroenterology GALLBLADDER HC LEFT HEART CATH N/A 09/26/2022 Procedure: Left Heart Cath; Surgeon: Tor Long MD; Location: [facility]; Service: Cardiovascular HYSTERECTOMY JOINT REPLACEMENT Left knee ORTHOPEDIC SURGERY r wrist surgery, left ankle, right rotator cuff ROTATOR CUFF REPAIR Right SIGMOIDOSCOPY FLEXIBLE N/A 06/23/2022 Procedure: SIGMOIDOSCOPY FLEXIBLE WITH BIOPSY; Surgeon: Tyshawn Santos MD; Location: [facility]; Service: Gastroenterology THYROIDECTOMY N/A 07/15/2015 Procedure: TOTAL THYROIDECTOMY; Surgeon: Lopez Alonso MD; Location: [facility]; Service: US ECHO TRANSTHORACIC FOLLOWUP LIMITED WRIST SURGERY Right Family History Family History Problem Relation Age of Onset Heart disease Mother Lupus Mother Stroke Mother Arthritis Mother Heart attack Mother Heart disease Father Heart attack Father Hypertension Father Hypertension Sister Hypertension Brother Prostate cancer Brother Colon cancer Brother Hypertension Brother Prostate cancer Brother Colon cancer Brother Hypertension Brother Prostate cancer Brother Stomach cancer Brother Heart attack Maternal Grandmother Heart attack Maternal Grandfather Heart attack Paternal Grandmother Heart attack Paternal Grandfather Breast cancer Neg Hx Social History Social History Tobacco Use Smoking Status Former Current packs/day: 0.00 Average packs/day: 1 pack/day for 20.0 years (20.0 ttl pk-yrs) Types: Cigarettes Start date: 07/10/1993 Quit date: 07/10/2013 Years since quittin.1 Smokeless Tobacco Never Social History Substance and Sexual Activity Alcohol Use No Social History Substance and Sexual Activity Drug Use Yes Frequency: 7.0 times per week Types: Marijuana Comment: currently using daily for pain and depression. Allergy Information I have reviewed the patient's allergies. Penicillins Home Medications Home medications were reviewed. Review Of Systems All relevant systems have been reviewed and are negative except as noted in HPI or below Physical Examination BP (!) 152/82 Pulse 69 Temp 98.5 F (36.9 C) (Oral) Resp 18 Ht 5' 5 Wt 107.5 kg (237 lb) SpO2 99% BMI 39.44 kg/m General Appearance: alert; acutely ill appearing; in moderate acute distress HEENT: Head- normocephalic; Eyes- EOMI, sclera anicteric; Throat- mucous membranes moist Cardiovascular: regular rate and rhythm; normal S1, S2; no murmurs, rubs, clicks or gallops; peripheral edema 3+ in the left Respiratory: lungs clear to auscultation; without wheezes, rales or rhonchi; on BIPAP Abdomen: soft, non-tender, non-distended Neurological: oriented x 3; normal speech; no focal findings or movement disorder noted Musculoskeletal: no significant deformity or tenderness to palpation Skin: normal coloration Psych: normal mood and affect documented in this [id number] Emergency department Note* Tram Perez RN - 09/02/2024 12:00 PM EDT Hourly rounding assessment completed on the patient. [x] Patient updated on plan of care [x] All comfort needs addressed [x] Patient updated on duration of visit All questions answered, patient denies further needs. Call light within reach. [id number] Emergency department Triage note* Tram Perez RN - 09/02/2024 11:23 AM EDT Pt from orthopedic office. Pt c/o SOB. Pt wears 4lpm PRN at home, presented to ED on RA. Pt was 77%on RA. Pt with non productive cough. Placed on 6lpm NC, O2 sat improved to 99%. Pt unable to speak in full sentences and tripoding d/t SOB [id number] Telephone encounter Note* Telephone Encounter - Raya Dutton MA - 03/06/2024 12:08 PM EDT Received refill request from [facility] for Levocarnitine. Last OV: 02/13/23 Last Labs: 02/13/23 Next OV: 06/03/24 Set up request for ePrescribe. [facility]05-01-2024 Miscellaneous Notes* Telephone Encounter - Raya Dutton MA - 03/06/2024 12:08 PM EDT Received refill request from [facility] for Levocarnitine. Last OV: 02/13/23 Last Labs: 02/13/23 Next OV: 06/03/24 Set up request for ePrescribe. [facility] this [facility] Telephone encounter Note* Telephone Encounter - Cecille Johnson LPN - 01/29/2024 9:34 AM EDT Received refill request from [facility] for Dojolvi Last OV: 02/13/23 Last Labs: 02/13/23 Next OV: 02/12/24 Set up request for ePrescribe. [facility]03-25-2024 Miscellaneous Notes* Telephone Encounter - Cecille Johnson LPN - 01/29/2024 9:34 AM EDT Received refill request from [facility] for Dojolvi Last OV: 02/13/23 Last Labs: 02/13/23 Next OV: 02/12/24 Set up request for ePrescribe. documented in this [facility]12-12-2023 Telephone encounter Note* Telephone Encounter - Meliza Rust - 10/17/2023 8:08 AM EST Received fax from [facility] put in the metbolic box. [facility]12-12-2023 Miscellaneous Notes* Telephone Encounter - Meliza Rust - 10/17/2023 8:08 AM EST Received fax from [facility] put in the metbolic box. documented in this [facility]12-11-2023 History of Present illness Narrative* Rivas Jules MD - 10/16/2023 2:41 PM EST Associated Order(s): Tendon Injection: Flexor Tendon Sheath Post-Procedure Diagnose(s): Trigger finger of left thumb Tendon Injection: Flexor Tendon Sheath Performed by: Rivas Jules MD Authorized by: Rivas Jules MD Consent given by: Patient Timeout performed at: 10/16/2023 2:41 PM Indications: Pain Location: Thumb Laterality: Left Needle size: 22 G Medications: 80 mg methylPREDNISolone acetate 40 mg/mL Anesthetic used: Lidocaine 1% * Rivas Jules MD - 10/16/2023 2:41 PM EST [facility] [address] [facility] [address] [facility] [id number] Radha Shafer is a 63 y.o. female being seen today, 10/16/23, Chief Complaint Patient presents with Left Hand - Pain [chief complaint] trigger finger left thumb HPI Dictation: She reports aforementioned symptoms for last few weeks [hpi] Physical Exam Dictation: [PE] obvious triggering with pain over the A1 armando Assessment and Plan Dictation: [AP] plan thumb injected without return in 2 weeks if not I have reviewed all relevant histories, medications, allergies, and problem list items with Radha Lu during this visit. Review of Systems Constitutional: Negative for chills and fever. HENT: Negative for congestion. Respiratory: Negative for shortness of breath. Cardiovascular: Negative for chest pain. Gastrointestinal: Negative for diarrhea, nausea and vomiting. Neurological: Negative for headaches. Psychiatric/Behavioral: Negative for behavioral problems. There were no vitals taken for this visit. Imaging: No results found. 1. Trigger finger of left thumb Return in about 2 weeks (around 10/30/2023), or if symptoms worsen or fail to improve. Rivas Jules MD documented in this [id number] Miscellaneous Notes* Telephone Encounter - Jada Glez - 02/27/2023 2:27 PM EDT Called to schedule a FU No answer Left message and recall to schedule from documented in this encounter[facility]04-24-2023 Telephone encounter Note* Telephone Encounter - Jada Glez - 02/27/2023 2:27 PM EDT Called to schedule a FU No answer Left message and recall to schedule from [facility]04-20-2023 Telephone encounter Note* Telephone Encounter - Elisabeth Matamoros MS, RD/LD - 02/23/2023 9:05 AM EDT Called Radha regarding her diet. She said she no longer had any questions for the dietitian. Encouraged her to call if she needed meal ideas or help with picking food. Gave her RD direct number as well. [facility]04-20-2023 Miscellaneous Notes* Telephone Encounter - Elisabeth Matamoros MS, RD/LD - 02/23/2023 9:05 AM EDT Called Radha regarding her diet. She said she no longer had any questions for the dietitian. Encouraged her to call if she needed meal ideas or help with picking food. Gave her RD direct number as well. documented in this [facility] Telephone encounter Note* Telephone Encounter - Rocio Nickerson LPN - 12/06/2022 3:25 PM EST Called and spoke with Kevin at [email or web address] ([phone]), informed them of my conversation with the patient. Kevin requested we contact them back when the patient restarts the medication. [facility]01-31-2023 Miscellaneous Notes* Telephone Encounter - Rocio Nickerson LPN - 12/06/2022 3:25 PM EST Called and spoke with Kevin at [email or web address] ([phone]), informed them of my conversation with the patient. Kevin requested we contact them back when the patient restarts the medication. * Telephone Encounter - Rocio Nickerson LPN - 12/06/2022 3:16 PM EST Contacted the patient to see when she went off the Dojolvi. Patient informed me that she took herself off the medication to do process of elimation as to what is causing the diarrhea. Patient informed me that she is going to stay off the medication for one more week, then go back on the medication.This nurse asked the patient to contact us when she restarts the medication, patient voiced understanding. * Telephone Encounter - Rocio Nickerson LPN - 12/06/2022 1:42 PM EST Received phone call from Selena at [facility]. Selena informed me that the patient had declined the refill request for Dojolivi because she was told by the provider to stop the medication due to diarrhea. Will contact the pharmacy with an update after speaking to the metabolic provider. Call back number [phone] documented in this encounterUK [facility]-31-[facility] Telephone encounter Note* Telephone Encounter - Rocio Nickerson LPN - 12/06/2022 3:16 PM EST Contacted the patient to see when she went off the Dojolvi. Patient informed me that she took herself off the medication to do process of elimation as to what is causing the diarrhea. Patient informed me that she is going to stay off the medication for one more week, then go back on the medication.This nurse asked the patient to contact us when she restarts the medication, patient voiced understanding. [facility]01-31-2023 Telephone encounter Note* Telephone Encounter - Rocio Nickerson LPN - 12/06/2022 1:42 PM EST Received phone call from Selena at [facility]. Selena informed me that the patient had declined the refill request for Dojolivi because she was told by the provider to stop the medication due to diarrhea. Will contact the pharmacy with an update after speaking to the metabolic provider. Call back number [phone] [facility]01-30-2023 History of Present illness Narrative* Khadra Perdomo MA - 12/05/2022 10:17 AM EST Refill request for DOJOLVI. documented in this encounterUK [facility]01-18-[facility]23 Telephone encounter Note* Telephone Encounter - Jada Glez - 11/23/2022 4:04 PM EST Third attempt and sent patient mychart message to reschedule. No answer, and patient has not read message. Sending letter in the mail. [facility]01-18-2023 Miscellaneous Notes* Telephone Encounter - Jada Glez - 11/23/2022 4:04 PM EST Third attempt and sent patient mychart message to reschedule. No answer, and patient has not read message. Sending letter in the mail. documented in this encounterUK Healthcare10-25-2022 Telephone encounter Note* Telephone Encounter - Shakira Gerard MD - 08/30/2022 12:38 PM EDT Previously call from [facility] pharmacy regarding patient not eating (when we were going toobtain more information from the caller they hung up) prompted a call to the patient due to concernof sickness in light of the pervious call. Called number in the system and obtained the patient, and confirmed name and , discussed above and concern of her being sick, she mentioned that she didn't have an appetite, not that she wasn't eating, she was taking the Dojolvi (of which she has been taking for a few years) but she's been having various months of diahreal events multiple times a day with seeming fatty stooll sas well, pateint mentions it's very fast in starting and starts with abdominal pain that runs through her and diahreal soon after, she also mentions that sometimes bending over will do it. She's had substantial work up for this and will be seeing her GI specialist next week to see what other steps to take. I discussed to have her discuss the possibility of pancreatitis and vessel issues (she's had a CT but no contrast due to underlying kidney issues) or even possible nerve issues she may have. Pateint mentioned she does have scoliosis and questions how the movement could be affecting this if it was IBS which is what they have mentioned it could be, expressed that that is odd, but to ask the GI specialist, if it is IBS what could they do about it. Patient mentioned rectal prolapse and colitis, asked if they have checked the colonic dawna and she said they have tested it. Patient also mentioned that she had chest pain at one poin (upper chest pain around the breast area) with nausea one day that subsided then had the diahreal events (patient mentioned she does get really bad abdominal pain tat would make her bend over in pain), but this was different, patient with wide family history of heart issues, stated she got checked in June with some calcifications noted in the arteries but nothing too concerning heart cabrera. Expressed that OK in females are notlike the typical Mis you think about in males with the chest pain and the left arm pain (which she d idn't have) if there's any concerns for chest pain that is beyond what she's used to in terms of the diahreal events she should go to the ED to be sure it's not heart related, patient stated understanding. Requested a call back after she's seen by the GI specialist so to see what they think and what the next steps are as she may not be absorbing the Dojolvi if she if having diahrea every day. Patient stated understanding. Will await call back next week. [facility] Work Phone: [phone] Miscellaneous Notes* Telephone Encounter - Shakira Gerard MD - 08/30/2022 12:38 PM EDT Previously call from [facility] pharmacy regarding patient not eating (when we were going toobtain more information from the caller they hung up) prompted a call to the patient due to concernof sickness in light of the pervious call. Called number in the system and obtained the patient, and confirmed name and , discussed above and concern of her being sick, she mentioned that she didn't have an appetite, not that she wasn't eating, she was taking the Dojolvi (of which she has been taking for a few years) but she's been having various months of diahreal events multiple times a day with seeming fatty stooll sas well, pateint mentions it's very fast in starting and starts with abdominal pain that runs through her and diahreal soon after, she also mentions that sometimes bending over will do it. She's had substantial work up for this and will be seeing her GI specialist next week to see what other steps to take. I discussed to have her discuss the possibility of pancreatitis and vessel issues (she's had a CT but no contrast due to underlying kidney issues) or even possible nerve issues she may have. Pateint mentioned she does have scoliosis and questions how the movement could be affecting this if it was IBS which is what they have mentioned it could be, expressed that that is odd, but to ask the GI specialist, if it is IBS what could they do about it. Patient mentioned rectal prolapse and colitis, asked if they have checked the colonic dawna and she said they have tested it. Patient also mentioned that she had chest pain at one poin (upper chest pain around the breast area) with nausea one day that subsided then had the diahreal events (patient mentioned she does get really bad abdominal pain tat would make her bend over in pain), but this was different, patient with wide family history of heart issues, stated she got checked in June with some calcifications noted in the arteries but nothing too concerning heart cabrera. Expressed that OK in females are notlike the typical Mis you think about in males with the chest pain and the left arm pain (which she d idn't have) if there's any concerns for chest pain that is beyond what she's used to in terms of the diahreal events she should go to the ED to be sure it's not heart related, patient stated understanding. Requested a call back after she's seen by the GI specialist so to see what they think and what the next steps are as she may not be absorbing the Dojolvi if she if having diahrea every day. Patient stated understanding. Will await call back next week. documented in this encounterUK Healthcare09-13-2022 History of Present illness Narrative* Debra Adamson, STEAM TENDER - 07/19/2022 2:57 PM EDT Radha Shafer 62 y.o. 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 Notes mild improvement diarrhea symptoms with Imodium as needed.Completed Cipro and Flagyl regimen. Unable to tolerate Metamucil due to texture. Continues to compla in of persistent abdominal pain, sometimes triggered by bending at the waist. Reports weight loss but according to chart on 07/08 weight was 227 pounds and today she is 229 pounds. She reports taking omeprazole 40 mg every day, if misses a dose return of heartburn symptoms by the next day such as reflux, heartburn, and dysphagia. Denies vomiting or painful swallowing. History of EGD 30 to 40 years ago and told small hiatal hernia. She does report sleeping with head of bed elevated. She denies NSAIDs, alcohol, and smoking. Reports daily marijuana use, typically edible form. Recent follow-up with PCP and no change to levothyroxine based on recent TSH level. Recently taken off metformin. Denies any improvement in diarrhea symptoms. Bowel movements 2-4 times a day, semiformed, fluffy. Endorses definite correlation between stress and diarrhea episodes. Past Medical History: Past Medical History: Diagnosis Date Anxiety Arthritis Back pain Bladder problem incontinence Cancer (HCC) thyroid Chronic pain disorder Colitis sigmoid COPD (chronic obstructive pulmonary disease) (HCC) 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HCC) Per pt. - Depression Diabetes (HCC) Diverticulosis Emphysema of lung (HCC) GERD (gastroesophageal reflux disease) Hepatic steatosis History of echocardiogram History of stress test Hypertension Hypothyroidism Kidney disease, chronic, stage I (GFR over 89 ml/min) stage 3 Lung nodule Neuromuscular disorder (HCC) 2015 I have cpt2 difficency Obesity On home oxygen therapy 2L via NC, PRN with walking, activity Scoliosis 03/2022 Sleep apnea noncompliant with CPAP; uses home oxygen Sleep apnea, obstructive Surgical History & Procedures: Past Surgical History: Procedure Laterality Date ALTEMEIER PROCEDURE N/A 03/30/2022 Procedure: ALTEMEIER PROCEDURE; Surgeon: Jada Vargas MD; [place] [facility]; Service: Colorectal CARDIOVASCULAR STRESS TEST CHOLECYSTECTOMY COLONOSCOPY with biopsies COLONOSCOPY N/A 02/17/2022 Procedure: COLONOSCOPY; Surgeon: Jada Vargas MD; [place] [facility] [place]; Service: Colorectal GALLBLADDER HYSTERECTOMY JOINT REPLACEMENT Left knee ORTHOPEDIC SURGERY r wrist surgery, left ankle, right rotator cuff ROTATOR CUFF REPAIR Right SIGMOIDOSCOPY FLEXIBLE N/A 06/23/2022 Procedure: SIGMOIDOSCOPY FLEXIBLE WITH BIOPSY; Surgeon: Tyshawn Santos MD; Location: Endo; Service: Gastroenterology THYROIDECTOMY N/A 07/15/2015 Procedure: TOTAL THYROIDECTOMY; Surgeon: Lopez Alonso MD; Location: [facility] OR; Service: US ECHO TRANSTHORACIC FOLLOWUP LIMITED WRIST SURGERY Right Social History: Social History Socioeconomic History Marital status: Occupational History Occupation: [employer] 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 Family History Problem Relation Age of Onset Heart disease Mother Lupus Mother Stroke Mother Arthritis Mother Heart attack Mother Heart disease Father Heart attack Father Hypertension Father Hypertension Sister Hypertension Brother Prostate cancer Brother Colon cancer Brother Hypertension Brother Prostate cancer Brother Colon cancer Brother Hypertension Brother Prostate cancer Brother Stomach cancer Brother Heart attack Maternal Grandmother Heart attack Maternal Grandfather Heart attack Paternal Grandmother Heart attack Paternal Grandfather Breast cancer Neg Hx Current Medications: Current Outpatient Medications Medication Sig Dispense Refill albuterol (PROVENTIL HFA;VENTOLIN HFA) 90 mcg/actuation inhaler Inhale 2 puffs every 6 (six) hours as needed for wheezing. aspirin 81 mg chewable tablet Chew and Swallow 81 mg daily . buPROPion (WELLBUTRIN) 75 MG tablet Take 1 (one) tablet (75 mg total) by mouth daily . cholecalciferol, vitamin D3, 1,000 unit tablet Take 1,000 Units by mouth daily. doxepin (SINEQUAN) 75 MG capsule Take 1 (one) capsule (75 mg total) by mouth nightly as needed for sleep . DULoxetine (CYMBALTA) 60 MG capsule Take 60 mg by mouth daily. ferrous sulfate 325 (65 FE) MG tablet Take 325 mg by mouth daily with breakfast. fluticasone propionate (FLONASE) 50 mcg/actuation nasal spray Instill 2 (two) sprays into each nostril daily . 16 g 3 [id number]-jvdgkxlcg-zoblapyz (Trelegy Ellipta) 200-62.5-25 mcg DsDv Inhale 1 (one) Inhalation daily . 60 each 11 levothyroxine (SYNTHROID, LEVOTHROID) 175 MCG tablet Take 1 (one) tablet (175 mcg total) by mouth once daily . loperamide (IMODIUM) 2 mg capsule Take 1 (one) capsule (2 mg total) by mouth 3 (three) times a day . 90 capsule 0 metoprolol tartrate (LOPRESSOR) 25 MG tablet Take 1 (one) tablet (25 mg total) by mouth 2 (two) times a day . 60 tablet 0 omeprazole (PRILOSEC) 40 MG capsule Take 40 mg by mouth daily . oxygen Inhale 2 L/min as needed Per patient, only used when walking or with activity . tiZANidine (ZANAFLEX) 4 MG capsule Take 4 mg by mouth nightly Pt takes 3 pills for a total of 12mg . triheptanoin (Dojolvi) 8.3 kcal/mL Liqd Take by mouth 4 (four) times a day . albuterol (ACCUNEB) 0.63 mg/3 mL nebulizer solution Take 1 ampule by nebulization every 6 (six) hours as needed for wheezing. amLODIPine (NORVASC) 5 MG tablet Take 10 mg by mouth daily . azithromycin (ZITHROMAX) 250 MG tablet Take 1 (one) tablet (250 mg total) by mouth daily Please take 2 tablets by mouth day 1 followed by 1 tablet by mouth for next 4 days. Total 6 tablets over 5 days. . (Patient not taking: Reported on 07/19/2022 .) 6 tablet 0 polycarbophil (FIBERCON) 625 mg tablet Take 1 (one) tablet (625 mg total) by mouth daily . 30 tablet 11 No current facility-administered medications for this visit. Review of Systems Constitutional: Negative for appetite change, fatigue, fever and unexpected weight change. HENT: Negative for mouth sores, trouble swallowing and voice change. Eyes: Negative for redness. Respiratory: Negative for cough, choking and shortness of breath. Cardiovascular: Negative for chest pain and palpitations. Gastrointestinal: Positive for abdominal pain, diarrhea and nausea. Negative for blood in stool, constipation and vomiting. Endocrine: Negative. Genitourinary: Negative for difficulty urinating. Musculoskeletal: Negative for arthralgias and joint swelling. Skin: Negative for color change and pallor. Allergic/Immunologic: Negative. Neurological: Negative for dizziness, syncope and light-headedness. Hematological: Negative. Psychiatric/Behavioral: Negative. Physical Exam Constitutional: General: She is not in acute distress. HENT: Head: Normocephalic and atraumatic. Right Ear: External ear normal. Left Ear: External ear normal. Nose: Nose normal. Mouth/Throat: Mouth: Mucous membranes are moist. Pharynx: No posterior oropharyngeal erythema. Eyes: General: No scleral icterus. Pupils: Pupils are equal, round, and reactive to light. Cardiovascular: Rate and Rhythm: Normal rate and regular rhythm. Heart sounds: No murmur heard. No gallop. Pulmonary: Effort: Pulmonary effort is normal. No respiratory distress. Breath sounds: Normal breath sounds. No wheezing. Abdominal: General: Abdomen is flat. Bowel sounds are normal. There is no distension. Palpations: Abdomen is soft. There is no mass. Tenderness: There is no abdominal tenderness. Musculoskeletal: General: No deformity. Normal range of motion. Cervical back: Normal range of motion and neck supple. Skin: General: Skin is warm and dry. Coloration: Skin is not jaundiced or pale. Neurological: General: No focal deficit present. Mental Status: She is alert and oriented to person, place, and time. Psychiatric: Mood and Affect: Mood normal. Behavior: Behavior normal. Lab Draw on 07/08/2022 Component Date Value Ref Range Status NT-Pro BNP 07/08/2022 369 (H) 0 - 300 pg/mL Final Sodium 07/08/2022 134 (L) 135 - 145 mmol/L Final Potassium 07/08/2022 5.2 (H) 3.5 - 5.1 mmol/L Final Chloride 07/08/2022 99 98 - 108 mmol/L Final Bicarbonate 07/08/2022 27 21 - 32 mmol/L Final Anion Gap 07/08/2022 13 10 - 20 mmol/L Final Glucose 07/08/2022 110 (H) 65 - 99 mg/dL Final BUN 07/08/2022 27 (H) 8 - 25 mg/dL Final Creatinine 07/08/2022 1.93 (H) 0.60 - 1.20 mg/dL Final eGFR 07/08/2022 29 (L) >=60 mL/min/1.73 m2 Final Estimated GFR was calculated using the 2020 CKD-EPI creatinine equation. BUN/Creatinine Ratio 07/08/2022 14.0 10.0 - 20.0 Final Total Protein 07/08/2022 7.8 6.0 - 8.0 g/dL Final Albumin 07/08/2022 3.8 3.2 - 5.2 g/dL Final Calcium 07/08/2022 8.7 8.4 - 10.2 mg/dL Final Alkaline Phosphatase 07/08/2022 108 40 - 150 U/L Final AST 07/08/2022 28 0 - 45 U/L Final Total Bilirubin 07/08/2022 0.2 0.0 - 1.3 mg/dL Final ALT 07/08/2022 34 14 - 65 U/L Final No results displayed because visit has over 200 results. Assessment & Plan: Abdominal pain- Nausea- Diarrhea- FiberCon 625 mg p.o. daily Continue Imodium as needed up to 4 times a day for diarrhea Continue omeprazole 40 mg p.o. daily Recommend EGD evaluation for upper abdominal pain and nausea Procedure discussed, risks reviewed, questions answered Instructed to hold 81 mg aspirin 7 days prior to procedure Patient scheduled for EGD with Dr. Santos at [facility] on 08/15/2022 at 12:00PM. Debra Adamson CNP documented in this [id number] History of Present illness Narrative* Estrada Garcia MD - 07/08/2022 11:45 AM EDT [facility] [address] [facility] [address] [facility] [id number] Name: Radha Shafer Age: 62 y.o. : 1960 Today's date: 07/08/22 Outpatient Pulmonary Consult Note Chief Complaint Patient presents with Follow-up Radha Shafer is a 62 y.o. female who presents to Pulmonary clinic for evaluation of post hospital follow up. She was last seen 12/30/21. HPI: Ms. Shafer is a 61 year old woman 25 pack year former smoker who quit in 2012 with COPD who presents for follow up evaluation. Interval history: Ms. Shafer was hospitalized from 06/21- a few months after rectal prolapse repair with significant diarrhea with AoCKD. While hospitalized she developed severe shortness of breath. This was attributed to volume overload. She was diuresed with some improvement in her shortness of breath. She notes wheezing when walking. She is coughing some but no sputum production. She notes significant orthopnea. Her JJ has significantly progressed since our last visit. Her last CXR prior to discharge was read as clear. Initial history: Ms. Shafer was diagnosed with COPD 10 years ago. She reports that she does not cough much at all. She is not bringing up sputum. She does complain of JJ over very limted distances (within her own house). She does not get out much anymore because she gets short of breath. She has been diagnosedwith FELISA but is unable to tolerate her CPAP. She has no recent chest imaging. I do not see PFTs on file. She has been on Trelegy in the past which helped, but was has not followed with her old report analyst so has been going without any inhalers. She has a nebulizer machine but is out of medicationfor it. She has not had exacerbations that have required hospitalization. She has not required oxygen in the past. She has required prednisone on a few occasions over the past 10 years. 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 She is treated at [facility]. Past Medical History: Diagnosis Date Anxiety Arthritis Back pain Bladder problem incontinence Cancer (HCC) thyroid Chronic pain disorder Colitis sigmoid COPD (chronic obstructive pulmonary disease) (HCC) 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HCC) Per pt. - Depression Diabetes (HCC) Diverticulosis Emphysema of lung (HCC) GERD (gastroesophageal reflux disease) Hepatic steatosis History of echocardiogram History of stress test Hypertension Hypothyroidism Kidney disease, chronic, stage I (GFR over 89 ml/min) stage 3 Lung nodule Neuromuscular disorder ([facility]) 2015 I have cpt2 difficency Obesity On home oxygen therapy 2L via NC, PRN with walking, activity Scoliosis 03/2022 Sleep apnea noncompliant with CPAP; uses home oxygen Sleep apnea, obstructive Past Surgical History: Procedure Laterality Date ALTEMEIER PROCEDURE N/A 03/30/2022 Procedure: ALTEMEIER PROCEDURE; Surgeon: Jada Vargas MD; [place] [facility]; Service: Colorectal CARDIOVASCULAR STRESS TEST CHOLECYSTECTOMY COLONOSCOPY with biopsies COLONOSCOPY N/A 02/17/2022 Procedure: COLONOSCOPY; Surgeon: Jada Vargas MD; [place] [facility]; Service: Colorectal GALLBLADDER HYSTERECTOMY JOINT REPLACEMENT Left knee ORTHOPEDIC SURGERY r wrist surgery, left ankle, right rotator cuff ROTATOR CUFF REPAIR Right SIGMOIDOSCOPY FLEXIBLE N/A 06/23/2022 Procedure: SIGMOIDOSCOPY FLEXIBLE WITH BIOPSY; Surgeon: Tyshawn Santos MD; Location: Endo; Service: Gastroenterology THYROIDECTOMY N/A 07/15/2015 Procedure: TOTAL THYROIDECTOMY; Surgeon: Lopez Alonso MD; Location: [facility] OR; Service: US ECHO TRANSTHORACIC FOLLOWUP LIMITED WRIST SURGERY Right Family History Problem Relation Age of Onset Heart disease Mother Lupus Mother Stroke Mother Arthritis Mother Heart attack Mother Heart disease Father Heart attack Father Hypertension Father Hypertension Sister Hypertension Brother Prostate cancer Brother Colon cancer Brother Hypertension Brother Prostate cancer Brother Colon cancer Brother Hypertension Brother Prostate cancer Brother Stomach cancer Brother Heart attack Maternal Grandmother Heart attack Maternal Grandfather Heart attack Paternal Grandmother Heart attack Paternal Grandfather Breast cancer Neg Hx Other pulmonary history: None Social History Socioeconomic History Marital status: Occupational History 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 Review of Systems All other systems reviewed and are negative. Objective: Outpatient Medications as of 07/08/2022 Medication Sig albuterol (PROVENTIL HFA;VENTOLIN HFA) 90 mcg/actuation inhaler Inhale 2 puffs every 6 (six) hours as needed for wheezing. aspirin 81 mg chewable tablet Chew and Swallow 81 mg daily . buPROPion (WELLBUTRIN) 75 MG tablet Take 1 (one) tablet (75 mg total) by mouth daily . cholecalciferol, vitamin D3, 1,000 unit tablet Take 1,000 Units by mouth daily. doxepin (SINEQUAN) 75 MG capsule Take 1 (one) capsule (75 mg total) by mouth nightly as needed for sleep . DULoxetine (CYMBALTA) 60 MG capsule Take 60 mg by mouth daily. ferrous sulfate 325 (65 FE) MG tablet Take 325 mg by mouth daily with breakfast. fluticasone propionate (FLONASE) 50 mcg/actuation nasal spray Instill 2 (two) sprays into each nostril daily . pnxlppsckcz-xziczthwb-bcihcmcu (Trelegy Ellipta) 200-62.5-25 mcg DsDv Inhale 1 (one) Inhalation daily . levothyroxine (SYNTHROID, LEVOTHROID) 175 MCG tablet Take 1 (one) tablet (175 mcg total) by mouth once daily . loperamide (IMODIUM) 2 mg capsule Take 1 (one) capsule (2 mg total) by mouth 3 (three) times a day . metoprolol tartrate (LOPRESSOR) 25 MG tablet Take 1 (one) tablet (25 mg total) by mouth 2 (two) times a day . omeprazole (PRILOSEC) 40 MG capsule Take 40 mg by mouth daily . oxygen Inhale 2 L/min as needed Per patient, only used when walking or with activity . tiZANidine (ZANAFLEX) 4 MG capsule Take 4 mg by mouth nightly Pt takes 3 pills for a total of 12mg . triheptanoin (Dojolvi) 8.3 kcal/mL Liqd Take by mouth 4 (four) times a day . albuterol (ACCUNEB) 0.63 mg/3 mL nebulizer solution Take 1 ampule by nebulization every 6 (six) hours as needed for wheezing. amLODIPine (NORVASC) 5 MG tablet Take 10 mg by mouth daily . [] ciprofloxacin HCl (CIPRO) 500 MG tablet Take 1 (one) tablet (500 mg total) by mouth dailyfor 7 days Start: 06/30/22. Allergies Allergen Reactions Penicillins Unknown and Other (See Comments) Was told as a child that she is allergic, but has never taken it to know the reaction. Childhood reaction Was told as a child that she is allergic, but has never taken it to know the reaction. BP 119/81 (BP Location: Left arm, Patient Position: Sitting, BP Cuff Size: X- large Adult) Pulse 73 Temp 98.9 F (37.2 C) (Temporal) Resp 18 Ht 5' 4 Wt 103.2 kg (227 lb 9.6 oz) SpO2 97% BMI 39.07 kg/m from IP Vitals Flowsheet Date/Time Weight 12/30/21 1035 110.4 Physical Exam: Vitals reviewed Gen: Alert and oriented x 3, In no apparent distress HEENT: Head: Normocephalic, no lesions, without obvious abnormality. Neck: no mass, no stridor Cardio: rapid rate, regular rhythm Resp: distant breath sounds bilaterally, no wheezes or crackles, no tachypnea or accessory muscle use Abd: soft, nontender MSK: Moves all four extremities spontaneously. Neuro: Grossly normal without focal findings Skin: no rashes, no jaundice PFT Results PFT Pre-bronchodilator None PFT Post-bronchodilator None PFT Lung Volumes None PFT Diffusion None Interpretation: None on file Imaging: Personally reviewed and agree with report. CXR 8/20/22 IMPRESSION: No acute cardiopulmonary abnormality. Personally reviewed CT Lung Cancer Screen and agree with report 01/24/22 IMPRESSION: Stable noncalcified nodules within the chest with measurements given in the body of the report. There are no pathologically enlarged lymph nodes. Additional findings as described in the body of the report. Lung rads score 2. A low-dose CT lung screening examination in 12 months is recommended. Assessment and Plan: Radha was seen today for follow-up. Diagnoses and all orders for this visit: COPD exacerbation (HCC) - XR Chest AP/PA and LAT; Future - NT Pro BNP; Future - Comprehensive Metabolic Panel; Future Other orders - predniSONE (DELTASONE) 20 MG tablet; Take 2 (two) tablets (40 mg total) by mouth daily for 5 days. - azithromycin (ZITHROMAX) 250 MG tablet; Take 1 (one) tablet (250 mg total) by mouth daily Please take 2 tablets by mouth day 1 followed by 1 tablet by mouth for next 4 days. Total 6 tablets over 5 days. . Ms. Shafer is a 61 year old woman 25 pack year former smoker who quit in 2012 with COPD who presents for follow up after recent hospitalization for diarrhea complicated by volume overload. She has underlying COPD and likely is experiencing an exacerbation. She is requiring 2LNC now at all timeswhen previously just with exertion. She has not been taking her LAMA/LABA/ICS inhaler. Advised to resume Trelegy. I have also ordered prednisone and azithromycin. Given renal disease, lower extremityedema and orthopnea I am concerned she may be volume overloaded. Will check CXR, BNP and CMP. Continue lung cancer screening. RTC in 6 weeks Estrada Garcia MD documented in this [id number] Hospital Discharge instructions * Discharge Instr - Other Orders* Angela Davila RN - 06/29/2022 11:01 AM EDT - The nuclear medical technologist's office will be contacting you after you leave to schedule a follow up appointment. * Attachments The following attachments cannot be sent through Care Everywhere. * Diarrhea ([place]) documented in this [id number] Hospital course Narrative* Leodan Geronimo MD - 06/29/2022 10:39 AM EDT Images from the original note were not included. [facility] [place] Radha Shafer Admitted: 06/21/2022 Discharge Date: 06/29/22 PCP Handoff Recommended Outpatient Testing Follow with GI for EGD Results Pending At Discharge None Clinical Summary Radha Shafer is a 62 y.o. 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 As noted above, symptoms started 4 days ago, watery diarrhea more than 5 episodes per day, associated diffuse abdominal pain and chills, admission to nausea without vomiting, patient denies recent antibiotic exposure, no history of C. difficile, history of rectal prolapse. COPD with chronic hypoxemia with acute exacerbation Volume overload 2/2 aggressive rehydration Increased sputum production, wheeze, shortness of breath Follow-up chest x-ray-no focal consolidation Follow-up COVID swab-negative Discontinue IV fluids Repeat Lasix x120 mg IV No increase in baseline oxygen requirements at this time, continue to monitor Improving discontinue azithromycin and prednisone Continue breathing treatment as needed and oxygen supplement Watery diarrhea - improving Sepsis ruled out Lactic acidosis resolved Blood cultures were obtained Significant leukocytosis above 20,000 CT of the abdomen showing fluid throughout the colon may consistent with a rapid diarrhea. C. Difficile - negative Zofran Stool /GI PRC panel negative S/p sigmoidoscopy w/ biopsy 06/23: focal active proctitis, likely 2/2 recent surgery, colonic mucosaw/o diagnostic abnormalities Patient started on metformin 6 months ago, same time as diarrhea, though worse recently Continue Flagyl per GI Another episode of diarrhea yesterday and today, was reevaluated by GI We will add ciprofloxacin keep Imodium as scheduled rather than needed Patient to follow with GI as an outpatient Rectal prolpase. S/p surgery March 2022 Chronic anemia Rectal bleeding per report S/p sigmoidoscopy showing mild proctitis, biopsies were taken 06/23/2022 H&H stable. Advance diet as advised. Daily monitoring of labs. KRISTIN on chronic kidney disease stage III-improving KRISTIN likley 2/2 Rhabdomyolitis Hyperkalemia secondary to KRISTIN Creatinine baseline around 1.2-1.3 with GFR 40-50 Aggressive IV hydration Just Rhabdomyolysis CPT-2 deficiency on Dojolvi (not on formulary) CPK 10,000 > 4000 >1703 Aggressive hydration Likely flair of CPT-2 def ppt by dehydration from diarrhea Patient restarted on her home Dojolvi Hyponatremia, hypovolemic hyponatremia, aggressive IV hydration Hypertension, hold lisinopril due to KRISTIN, continue amlodipine, added metoprolol twice daily hypothyroidism, levothyroxine TSH 0.68, low for placement, may need to consider decreasing levothyroxine for target TSH 2.5, thismay be contributing to her diarrhea Discharge Medications Discharge Medications New Medications Details ciprofloxacin HCl 500 MG tablet Commonly known as: CIPRO Start taking on: June 30, 2022 Take 1 (one) tablet (500 mg total) by mouth daily for 7 days Start: 06/30/22. Quantity: 7 tablet loperamide 2 mg capsule Commonly known as: IMODIUM Take 1 (one) capsule (2 mg total) by mouth 3 (three) times a day . Quantity: 90 capsule metoprolol tartrate 25 MG tablet Commonly known as: LOPRESSOR Take 1 (one) tablet (25 mg total) by mouth 2 (two) times a day . Quantity: 60 tablet metroNIDAZOLE 500 MG tablet Commonly known as: FLAGYL Take 1 (one) tablet (500 mg total) by mouth 3 (three) times a day with meals for 7 days . Quantity: 21 tablet oxyCODONE 5 MG immediate release tablet Commonly known as: ROXICODONE Take 1 (one) tablet (5 mg total) by mouth every 4 (four) hours as needed (Days supply per fill: 7) . Quantity: 12 tablet Medications To Continue Details * albuterol 0.63 mg/3 mL nebulizer solution Commonly known as: ACCUNEB Take 1 ampule by nebulization every 6 (six) hours as needed for wheezing. * albuterol 90 mcg/actuation inhaler Inhale 2 puffs every 6 (six) hours as needed for wheezing. amLODIPine 5 MG tablet Commonly known as: NORVASC Take 10 mg by mouth daily . aspirin 81 mg chewable tablet Chew and Swallow 81 mg daily . buPROPion 75 MG tablet Commonly known as: WELLBUTRIN Take 1 (one) tablet (75 mg total) by mouth daily . cholecalciferol (vitamin D3) 1,000 unit tablet Take 1,000 Units by mouth daily. Dojolvi 8.3 kcal/mL Liqd Generic drug: triheptanoin Take by mouth 4 (four) times a day . doxepin 75 MG capsule Commonly known as: SINEQUAN Take 1 (one) capsule (75 mg total) by mouth nightly as needed for sleep . DULoxetine 60 MG capsule Commonly known as: CYMBALTA Take 60 mg by mouth daily. ferrous sulfate 325 (65 FE) MG tablet Take 325 mg by mouth daily with breakfast. fluticasone propionate 50 mcg/actuation nasal spray Commonly known as: FLONASE Instill 2 (two) sprays into each nostril daily . Quantity: 16 g levothyroxine 175 MCG tablet Commonly known as: SYNTHROID, LEVOTHROID Take 1 (one) tablet (175 mcg total) by mouth once daily . omeprazole 40 MG capsule Commonly known as: PRILOSEC Take 40 mg by mouth daily . oxygen Inhale 2 L/min as needed Per patient, only used when walking or with activity . tiZANidine 4 MG capsule Commonly known as: ZANAFLEX Take 4 mg by mouth nightly Pt takes 3 pills for a total of 12mg . Trelegy Ellipta 200-62.5-25 mcg Dsdv Generic drug: yyznrgarrks-srvdnzivo-zdvvfkzp Inhale 1 (one) Inhalation daily . Quantity: 60 each * There are duplicate medications prescribed to the patient Stopped Medications lisinopriL 40 MG tablet Commonly known as: PRINIVILZESTRIL metFORMIN 500 MG tablet Commonly known as: GLUCOPHAGE Physician(s) Follow Up: No follow-up provider specified. Condition at Discharge: Stable Disposition: Home On day of discharge, I performed a final bedside evaluation including a physical exam. I reviewed discharge recommendations with the patient in person. Patient instructions, including activity, were given to the patient/family at discharge. Time spent on discharge: > 30 minutes Completed by: Leodan Geronimo on 06/29/22, 10:39 AM documented in this [id number] History of Present illness Narrative* Leodan Geronimo MD - 06/28/2022 11:46 AM EDT [facility] [place] Assessment and Plan Radha Shafer is a 62 y.o. 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 As noted above, symptoms started 4 days ago, watery diarrhea more than 5 episodes per day, associated diffuse abdominal pain and chills, admission to nausea without vomiting, patient denies recent antibiotic exposure, no history of C. difficile, history of rectal prolapse. COPD with chronic hypoxemia with acute exacerbation Volume overload 2/2 aggressive rehydration Increased sputum production, wheeze, shortness of breath Follow-up chest x-ray-no focal consolidation Follow-up COVID swab-negative Discontinue IV fluids Repeat Lasix x120 mg IV No increase in baseline oxygen requirements at this time, continue to monitor Improving discontinue azithromycin and prednisone Continue breathing treatment as needed and oxygen supplement Watery diarrhea - improving Sepsis ruled out Lactic acidosis resolved Blood cultures were obtained Significant leukocytosis above 20,000 CT of the abdomen showing fluid throughout the colon may consistent with a rapid diarrhea. C. Difficile - negative Zofran Stool /GI PRC panel negative S/p sigmoidoscopy w/ biopsy 06/23: focal active proctitis, likely 2/2 recent surgery, colonic mucosaw/o diagnostic abnormalities Patient started on metformin 6 months ago, same time as diarrhea, though worse recently Continue Flagyl per GI Another episode of diarrhea yesterday and today, was reevaluated by GI We will add ciprofloxacin keep Imodium as scheduled rather than needed Continue with IV fluid Rectal prolpase. S/p surgery March 2022 Chronic anemia Rectal bleeding per report S/p sigmoidoscopy showing mild proctitis, biopsies were taken 06/23/2022 H&H stable. Advance diet as advised. Daily monitoring of labs. KRISTIN on chronic kidney disease stage III-improving KRISTIN likley 2/2 Rhabdomyolitis Hyperkalemia secondary to KRISTIN Creatinine baseline around 1.2-1.3 with GFR 40-50 Aggressive IV hydration Daily renal panel Rhabdomyolysis CPT-2 deficiency on Dojolvi (not on formulary) CPK 10,000 > 4000 >1703 Aggressive hydration Likely flair of CPT-2 def ppt by dehydration from diarrhea Patient restarted on her home Dojolvi Continue with IV fluid hydration Hyponatremia, hypovolemic hyponatremia, aggressive IV hydration Hypertension, hold lisinopril due to KRISTIN, continue amlodipine, continue hydralazine to 25 mg p.o. 3times daily Hypothyroidism, levothyroxine TSH 0.68, low for placement, may need to consider decreasing levothyroxine for target TSH 2.5, thismay be contributing to her diarrhea Code Status: Full Code Quality Measures DVT Prophylaxis: SCDs Diaz Catheter: none Disposition Discharge Location: home Estimated Discharge Date: 06/07/2022 outpatient Testing: none Subjective Very frustrated still having epigastric abdominal pain had another episode of watery diarrhea yesterday denies any fever or chills Complaining of diffuse muscle achiness Review of Systems All systems have been reviewed and are negative except as noted in HPI or below Objective BP (!) 169/94 Pulse 84 Temp 98.7 F (37.1 C) (Oral) Resp 16 Ht 5' 4 Wt 105.2 kg (232 lb) SpO2 96% BMI 39.82 kg/m Physical Examination General Appearance: alert; acutely ill appearing; in no acute distress HEENT: Head- normocephalic; Eyes- EOMI, sclera anicteric; Ears- hearing intact; Nose- no nasal discharge; Throat- mucous membranes moist Cardiovascular: regular rate and rhythm; normal S1, S2; no murmurs, rubs, clicks or gallops; 2+ bilateral lower extremity edema Respiratory: Left lung clear, right lung with decreased air entry and wheezes on nasal cannula Abdomen: soft, non-tender, non-distended Neurological: oriented x 3; normal speech; no focal findings or movement disorder noted Musculoskeletal: no significant deformity or tenderness to palpation Skin: normal coloration; no obvious rashes, lesions or skin breakdown Psych: normal mood and affect Results/Medications Reviewed 06/28/2022 11:46 AM Laboratory, Microbiology, Medications, and Transcriptions * Dafne Mendez, RD - 06/28/2022 10:32 AM EDT Nutrition Care Initial Assessment Reason for visit: Dietitian Screen Nutrition Diagnosis: Inadequate energy intake related to inability to consume sufficient energy as evidenced by 21#, 8% weight loss past 3 months. Nutrition Intervention: Continue meals Nutrition Prescription: Diet: DOUG 60 gm/meal Nutrition Goals: PO intake > 75% most meals Start Date:06/28/2022 Expected End Date:07/04/2022 Nutrition Education: No needs at this time Assessment: Pertinent clinical information: rectal prolapse s/p surgery at [facility] on March 2022 who presented to the emergency department with 4 days of diarrhea, nausea diffuse abdominal pain. Past Medical History: Diagnosis Date Anxiety Arthritis Back pain Bladder problem incontinence Cancer (HCC) thyroid Chronic pain disorder Colitis sigmoid COPD (chronic obstructive pulmonary disease) (HCC) 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HCC) Per pt. - Depression Diabetes (HCC) Diverticulosis Emphysema of lung (HCC) GERD (gastroesophageal reflux disease) Hepatic steatosis History of echocardiogram History of stress test Hypertension Hypothyroidism Kidney disease, chronic, stage I (GFR over 89 ml/min) stage 3 Obesity On home oxygen therapy 2L via NC, PRN with walking, activity Sleep apnea noncompliant with CPAP; uses home oxygen Sleep apnea, obstructive Height: 5' 4 Current weight: 105.2 kg (232 lb) BMI Body mass index is 39.82 kg/m . Weight hx: 8%, 21# weight loss past 3 months Wt Readings from Last 5 Encounters: 06/21/22 105.2 kg (232 lb) 04/04/22 107.4 kg (236 lb 12.4 oz) 03/28/22 114.8 kg (253 lb) 03/22/22 114.8 kg (253 lb) 03/01/22 114.6 kg (252 lb 9.6 oz) Current diet order: DOUG 75 gm/meal Recent intake: 50-75%. Current intake meets estimated needs. Patient/family comments: patient reports eating well, likes the food here, follows high protein diet @ home Difficulty Chewing/Swallowing: No Skin Integrity: Intact GI Function: Diarrhea, 06/28/22 Physical Appearance: no signs or symptoms of malnutrition Labs: Recent Labs 06/28/22 0439 NA 138 K 4.7 BICARB 27 CL 104 GLUCOSE 92 BUN 29* CREATININE 1.85* MG 1.4* PHOS 5.2* Scheduled Meds: amLODIPine 10 mg Oral Daily buPROPion 75 mg Oral BID ciprofloxacin HCl 500 mg Oral Daily DULoxetine 60 mg Oral Daily ipratropium-albuteroL 3 mL Inhalation Q6H While awake levothyroxine 175 mcg Oral Daily loperamide 2 mg Oral TID metoprolol tartrate 25 mg Oral BID metroNIDAZOLE 500 mg Oral TID with meals pantoprazole 40 mg Oral Daily sodium chloride (PF) 5 mL Intravenous Q8H TRACY triheptanoin 18 mL Oral 4x daily Continuous Infusions: sodium chloride 0.9 % sodium chloride 0.9 % 75 mL/hr (06/28/22 0538) Estimated Energy Needs Total Energy Estimated Needs: 1800 kcal Method for Estimating Needs: @ 25 kcal/kg Total Protein Estimated Needs: 70 gm Method for Estimating Needs: @ 1 gm/kg abw Will continue to follow as needed., while in-house. Office [phone] * Leodan Geronimo MD - 06/27/2022 11:43 AM EDT [facility] [place] Assessment and Plan Radha Shafer is a 62 y.o. 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 As noted above, symptoms started 4 days ago, watery diarrhea more than 5 episodes per day, associated diffuse abdominal pain and chills, admission to nausea without vomiting, patient denies recent antibiotic exposure, no history of C. difficile, history of rectal prolapse. COPD with chronic hypoxemia with acute exacerbation Volume overload 2/2 aggressive rehydration Increased sputum production, wheeze, shortness of breath Follow-up chest x-ray-no focal consolidation Follow-up COVID swab-negative Discontinue IV fluids Repeat Lasix x120 mg IV No increase in baseline oxygen requirements at this time, continue to monitor Start prednisone 40 mg for 5 days Start azithromycin 500 mg today followed by 250 mg for total of 5 days DuoNebs Watery diarrhea - improving Sepsis ruled out Lactic acidosis resolved Blood cultures were obtained Significant leukocytosis above 20,000 CT of the abdomen showing fluid throughout the colon may consistent with a rapid diarrhea. C. Difficile - negative Zofran Stool /GI PRC panel negative S/p sigmoidoscopy w/ biopsy 06/23: focal active proctitis, likely 2/2 recent surgery, colonic mucosaw/o diagnostic abnormalities Patient started on metformin 6 months ago, same time as diarrhea, though worse recently Continue Flagyl per gi Rectal prolpase. S/p surgery March 2022 Chronic anemia Rectal bleeding per report S/p sigmoidoscopy showing mild proctitis, biopsies were taken 06/23/2022 H&H stable. Advance diet as advised. Daily monitoring of labs. KRISTIN on chronic kidney disease stage III-improving KRISTIN likley 2/2 Rhabdomyolitis Hyperkalemia secondary to KRISTIN Creatinine baseline around 1.2-1.3 with GFR 40-50 Aggressive IV hydration Daily renal panel Rhabdomyolysis CPT-2 deficiency on Dojolvi (not on formulary) CPK 10,000 > 4000 >1703 Aggressive hydration Likely flair of CPT-2 def ppt by dehydration from diarrhea Patient restarted on her home Dojolvi Hyponatremia, hypovolemic hyponatremia, aggressive IV hydration Hypertension, hold lisinopril due to KRISTIN, continue amlodipine, continue hydralazine to 25 mg p.o. 3times daily Hypothyroidism, levothyroxine TSH 0.68, low for placement, may need to consider decreasing levothyroxine for target TSH 2.5, thismay be contributing to her diarrhea Code Status: Full Code Quality Measures DVT Prophylaxis: SCDs Diaz Catheter: none Disposition Discharge Location: home Estimated Discharge Date: 06/07/2022 outpatient Testing: none Subjective Patient reports she is feeling somewhat better today. Continues to feel short of breath but improved from yesterday. Oxygen remains on 2 L which is her baseline. Diarrhea was improving but is back this morning she is reluctant to go home today still diarrhea resolved Review of Systems All systems have been reviewed and are negative except as noted in HPI or below Objective BP (!) 149/71 Pulse 95 Temp 97.9 F (36.6 C) (Oral) Resp 17 Ht 5' 4 Wt 105.2 kg (232 lb) SpO2 94% BMI 39.82 kg/m Physical Examination General Appearance: alert; acutely ill appearing; in no acute distress HEENT: Head- normocephalic; Eyes- EOMI, sclera anicteric; Ears- hearing intact; Nose- no nasal discharge; Throat- mucous membranes moist Cardiovascular: regular rate and rhythm; normal S1, S2; no murmurs, rubs, clicks or gallops; 2+ bilateral lower extremity edema Respiratory: Left lung clear, right lung with decreased air entry and wheezes on nasal cannula Abdomen: soft, non-tender, non-distended Neurological: oriented x 3; normal speech; no focal findings or movement disorder noted Musculoskeletal: no significant deformity or tenderness to palpation Skin: normal coloration; no obvious rashes, lesions or skin breakdown Psych: normal mood and affect Results/Medications Reviewed 06/27/2022 11:43 AM Laboratory, Microbiology, Medications, and Transcriptions * Sheri Hale MD - 06/26/2022 1:40 PM EDT [facility] [place] Assessment and Plan Radha Shafer is a 62 y.o. 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 As noted above, symptoms started 4 days ago, watery diarrhea more than 5 episodes per day, associated diffuse abdominal pain and chills, admission to nausea without vomiting, patient denies recent antibiotic exposure, no history of C. difficile, history of rectal prolapse. COPD with chronic hypoxemia with acute exacerbation Volume overload 2/2 aggressive rehydration Increased sputum production, wheeze, shortness of breath Follow-up chest x-ray-no focal consolidation Follow-up COVID swab-negative Discontinue IV fluids Repeat Lasix x120 mg IV No increase in baseline oxygen requirements at this time, continue to monitor Start prednisone 40 mg for 5 days Start azithromycin 500 mg today followed by 250 mg for total of 5 days DuoNebs Watery diarrhea - improving Sepsis ruled out Lactic acidosis resolved Blood cultures were obtained Significant leukocytosis above 20,000 CT of the abdomen showing fluid throughout the colon may consistent with a rapid diarrhea. C. Difficile - negative Zofran Stool /GI PRC panel negative S/p sigmoidoscopy w/ biopsy 06/23: focal active proctitis, likely 2/2 recent surgery, colonic mucosaw/o diagnostic abnormalities Patient started on metformin 6 months ago, same time as diarrhea, though worse recently Continue Flagyl per gi Rectal prolpase. S/p surgery March 2022 Chronic anemia Rectal bleeding per report S/p sigmoidoscopy showing mild proctitis, biopsies were taken 06/23/2022 H&H stable. Advance diet as advised. Daily monitoring of labs. KRISTIN on chronic kidney disease stage III-improving KRISTIN likley 2/2 Rhabdomyolitis Hyperkalemia secondary to KRISTIN Creatinine baseline around 1.2-1.3 with GFR 40-50 Aggressive IV hydration Daily renal panel Rhabdomyolysis CPT-2 deficiency on Dojolvi (not on formulary) CPK 10,000 > 4000 >1703 Aggressive hydration Likely flair of CPT-2 def ppt by dehydration from diarrhea Patient restarted on her home Dojolvi Hyponatremia, hypovolemic hyponatremia, aggressive IV hydration Hypertension, hold lisinopril due to KRISTIN, continue amlodipine, continue hydralazine to 25 mg p.o. 3times daily Hypothyroidism, levothyroxine TSH 0.68, low for placement, may need to consider decreasing levothyroxine for target TSH 2.5, thismay be contributing to her diarrhea Admitted From: home Medication Reconciliation: Verified Code Status: Full Code Quality Measures DVT Prophylaxis: SCDs Diaz Catheter: absent Code Status: Full Code Quality Measures DVT Prophylaxis: SCDs Diaz Catheter: none Disposition Discharge Location: home Estimated Discharge Date: 06/07/2022 outpatient Testing: none Subjective Patient reports she is feeling somewhat better today. Continues to feel short of breath but improved from yesterday. Oxygen remains on 2 L which is her baseline. Her diarrhea is improving. She reports cough productive of yellow sputum and wheezing Review of Systems All systems have been reviewed and are negative except as noted in HPI or below Objective BP (!) 168/78 Pulse 90 Temp 98.4 F (36.9 C) (Oral) Resp 16 Ht 5' 4 Wt 105.2 kg (232 lb) SpO2 97% BMI 39.82 kg/m Physical Examination General Appearance: alert; acutely ill appearing; in no acute distress HEENT: Head- normocephalic; Eyes- EOMI, sclera anicteric; Ears- hearing intact; Nose- no nasal discharge; Throat- mucous membranes moist Cardiovascular: regular rate and rhythm; normal S1, S2; no murmurs, rubs, clicks or gallops; 2+ bilateral lower extremity edema Respiratory: Left lung clear, right lung with decreased air entry and wheezes on nasal cannula Abdomen: soft, non-tender, non-distended Neurological: oriented x 3; normal speech; no focal findings or movement disorder noted Musculoskeletal: no significant deformity or tenderness to palpation Skin: normal coloration; no obvious rashes, lesions or skin breakdown Psych: normal mood and affect Results/Medications Reviewed 06/26/2022 1:40 PM Laboratory, Microbiology, Medications, and Transcriptions * Sheri Hale MD - 06/25/2022 1:52 PM EDT [facility] [place] Assessment and Plan Radha Shafer is a 62 y.o. 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 As noted above, symptoms started 4 days ago, watery diarrhea more than 5 episodes per day, associated diffuse abdominal pain and chills, admission to nausea without vomiting, patient denies recent antibiotic exposure, no history of C. difficile, history of rectal prolapse. Dyspnea Malaise COPD with chronic hypoxemia Patient reports since this morning she has had worsening shortness of breath and malaise. Could be related to IV hydration for rhabdo though no crackles on exam S/p Lasix IV 20 mg at 10 AM, repeat dose scheduled for 4 PM Follow-up chest x-ray Follow-up COVID swab Decrease fluid rate to 100 No increase in baseline oxygen requirements at this time, continue to monitor As needed nebulizers Watery diarrhea - improving Sepsis ruled out Lactic acidosis resolved Blood cultures were obtained Significant leukocytosis above 20,000 CT of the abdomen showing fluid throughout the colon may consistent with a rapid diarrhea. C. Difficile - negative Continue with Aggressive IV hydration Zofran Stool /GI PRC panel negative S/p sigmoidoscopy w/ biopsy 06/23: focal active proctitis, likely 2/2 recent surgery, colonic mucosaw/o diagnostic abnormalities Patient started on metformin 6 months ago, same time as diarrhea, though worse recently Continue zosyn per gi Rectal prolpase. S/p surgery March 2022 Chronic anemia Rectal bleeding per report S/p sigmoidoscopy showing mild proctitis, biopsies were taken 06/23/2022 H&H stable. Advance diet as advised. Daily monitoring of labs. KRISTIN on chronic kidney disease stage III KRISTIN likley 2/2 Rhabdomyolitis Hyperkalemia secondary to KRISTIN Creatinine baseline around 1.2-1.3 with GFR 40-50 Aggressive IV hydration Daily renal panel Rhabdomyolysis CPT-2 deficiency on Dojolvi (not on formulary) CPK 10,000 > 4000 Aggressive hydration Likely flair of CPT-2 def ppt by dehydration from diarrhea Patient to bring in her medication Hyponatremia, hypovolemic hyponatremia, aggressive IV hydration Hypertension, hold lisinopril due to KRISTIN, continue amlodipine, increase hydralazine to 25 mg p.o. 3times daily Hypothyroidism, levothyroxine TSH 0.68, low for placement, may need to consider decreasing levothyroxine for target TSH 2.5, thismay be contributing to her diarrhea Admitted From: home Medication Reconciliation: Verified Code Status: Full Code Quality Measures DVT Prophylaxis: SCDs Diaz Catheter: absent Code Status: Full Code Quality Measures DVT Prophylaxis: SCDs Diaz Catheter: none Disposition Discharge Location: home Estimated Discharge Date: June 2022 outpatient Testing: none Subjective Patient reports she is feeling much worse than yesterday. She reports significant shortness of breath which improved with a breathing treatment. She is unsure if the Lasix helped with her breathing. She reports generalized malaise. She continues to have watery diarrhea but the frequency and volume has significantly decreased. She denies any nausea or vomiting. Review of Systems All systems have been reviewed and are negative except as noted in HPI or below Objective BP (!) 181/81 Pulse 87 Temp 98.2 F (36.8 C) (Oral) Resp 16 Ht 5' 4 Wt 105.2 kg (232 lb) SpO2 98% BMI 39.82 kg/m Physical Examination General Appearance: alert; acutely ill appearing; in mild acute distress HEENT: Head- normocephalic; Eyes- EOMI, sclera anicteric; Ears- hearing intact; Nose- no nasal discharge; Throat- mucous membranes moist Cardiovascular: regular rate and rhythm; normal S1, S2; no murmurs, rubs, clicks or gallops; 2+ bilateral lower extremity edema Respiratory: Equal air entry bilaterally; no crackles, mild wheeze on right on room air Abdomen: soft, non-tender, non-distended; positive bowel sounds Neurological: oriented x 3; normal speech; no focal findings or movement disorder noted Musculoskeletal: no significant deformity or tenderness to palpation Skin: normal coloration; no obvious rashes, lesions or skin breakdown Psych: normal mood and affect Results/Medications Reviewed 06/25/2022 1:52 PM Laboratory, Microbiology, Medications, and Transcriptions * Sheri Hale MD - 06/24/2022 5:30 PM EDT [facility] [place] Assessment and Plan Radha Shafer is a 62 y.o. 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 As noted above, symptoms started 4 days ago, watery diarrhea more than 5 episodes per day, associated diffuse abdominal pain and chills, admission to nausea without vomiting, patient denies recent antibiotic exposure, no history of C. difficile, history of rectal prolapse. Watery diarrhea Sepsis with lactic acidosis Blood cultures were obtained Significant leukocytosis above 20,000 CT of the abdomen showing fluid throughout the colon may consistent with a rapid diarrhea. C. Difficile - negative Discontinue all antibiotics Continue with Aggressive IV hydration Zofran Stool /GI PRC panel negative Continue present care. GI follow-up to continue. Not in acute distress. Advance diet as tolerated. S/p sigmoidoscopy w/ biopsy 06/23: focal active proctitis, likely 2/2 recent surgery, colonic mucosaw/o diagnostic abnormalities Patient started on metformin 6 months ago, same time as diarrhea, though worse recently Rectal prolpase. S/p surgery March 2022 Chronic anemia Rectal bleeding per report S/p sigmoidoscopy showing mild proctitis, biopsies were taken 06/23/2022 H&H stable. Advance diet as advised. Daily monitoring of labs. KRISTIN on chronic kidney disease stage III KRISTIN likley 2/2 Rhabdomyolitis Hyperkalemia secondary to KRISTIN Creatinine baseline around 1.2-1.3 with GFR 40-50 Aggressive IV hydration Daily renal panel Rhabdomyolysis CPT-2 deficiency on Dojolvi (not on formulary) Aggressive hydration Likely flair of CPT-2 def ppt by dehydration from diarrhea Hyponatremia, hypovolemic hyponatremia, aggressive IV hydration Hypertension, hold lisinopril due to KRISTIN, continue amlodipine, start hydralazine 10 mg p.o. 3 timesdaily Hypothyroidism, levothyroxine TSH 0.68, low for placement, may need to consider decreasing levothyroxine for target TSH 2.5, thismay be contributing to her diarrhea COPD, albuterol as needed Admitted From: home Medication Reconciliation: Verified Code Status: Full Code Quality Measures DVT Prophylaxis: SCDs Diaz Catheter: absent Code Status: Full Code Quality Measures DVT Prophylaxis: SCDs Diaz Catheter: none Disposition Discharge Location: home Estimated Discharge Date: June 2022 outpatient Testing: none Subjective Reports feeling better than yesterday. Had some proximal muscle weakness in left shoulder which hassince resolved. Patient did have elevated blood pressure in the 180s systolic this morning as well as chest pain. EKG nonischemic, troponin negative, MPI stress 3 months ago. IV labetalol 5 mg x 1 given. Patient started on amlodipine for blood pressure. She is on lisinopril at home but given her KRISTIN will use amlodipine while inpatient. We will also add hydralazine p.o. while patient is getting aggressive IV hydration. Patient reports her chest pain has resolved. Her diarrhea is very slightly improving Review of Systems All systems have been reviewed and are negative except as noted in HPI or below Objective BP (!) 175/81 Pulse 82 Temp 97.8 F (36.6 C) (Oral) Resp 16 Ht 5' 4 Wt 105.2 kg (232 lb) SpO2 96% BMI 39.82 kg/m Physical Examination General Appearance: alert; acutely ill appearing; in no acute distress HEENT: Head- normocephalic; Eyes- EOMI, sclera anicteric; Ears- hearing intact; Nose- no nasal discharge; Throat- mucous membranes moist Cardiovascular: regular rate and rhythm; normal S1, S2; no murmurs, rubs, clicks or gallops; no peripheral edema Respiratory: lungs clear to auscultation; without wheezes, rales or rhonchi; on room air Abdomen: soft, non-tender, non-distended; positive bowel sounds Neurological: oriented x 3; normal speech; no focal findings or movement disorder noted Musculoskeletal: no significant deformity or tenderness to palpation Skin: normal coloration; no obvious rashes, lesions or skin breakdown Psych: normal mood and affect Results/Medications Reviewed 06/24/2022 5:30 PM Laboratory, Microbiology, Medications, and Transcriptions * Debra Adamson CNP - 06/24/2022 10:28 AM EDT DAILY PROGRESS NOTE Patient Name: Radha Shafer MR #: [id number] Assessment/Plan: 62 y.o. 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 Diarrhea- Intermittent watery diarrhea for the past 6 months 1 episode of bright red blood after multiple diarrhea episodes Denies anymore bright red blood Denies dark red/maroon or tarry stools, BM always dark-greenish, she takes iron Hemoglobin 8.6 (8.4, 10.9) Normal saline at 100/hour continuous Stool PCR negative Imodium as needed Flexible sigmoidoscopy completed yesterday by Dr. Santos. Sigmoidoscopy revealed mild proctitis, sigmoid colon was normal, biopsies were taken from rectum and sigmoid colon. Proctitis could be secondary to recent surgery for rectal prolapse. Pathology results from flexible sigmoid biopsies: Final Diagnosis A. Colon, Sigmoid, biopsy: Colonic mucosa without diagnostic abnormality. B. Colon, Rectum, biopsy: Focal active colitis, see note. Note: Features of chronicity are not appreciated and there is no evidence of dysplasia. The differential diagnosis includes infection, adverse drug reaction and ischemia. Reviewed pathology, discussed with Dr. Santos and agreed that based on symptoms and recent leukocytosis on admission likely infectious in nature. Patient did receive Flagyl IV on admission, but wasdiscontinued since no obvious etiology of infection. Recommend Flagyl 500 mg p.o. 3 times daily x7 days continue Imodium as needed for diarrhea symptoms. GI will sign off, may follow-up in the office if needed, but not required. Pending Lab and Radiology Results Order Current Status Blood Culture Aerobic/Anaerobic Preliminary result Blood Culture Aerobic/Anaerobic Preliminary result Interpretation of Testing: I personally reviewed the labs, notes, procedures Review of Systems: All other systems reviewed and negative other than HPI Subjective: Tolerating regular food. Imodium helping a little. Denies new abdominal pain or tenderness. Denies any further rectal bleeding. Objective: Physical Examination: BP (!) 183/95 Pulse 84 Temp 97.9 F (36.6 C) (Oral) Resp 16 Ht 5' 4 Wt 105.2 kg (232 lb) SpO2 99% BMI 39.82 kg/m General Appearance: Alert, well appearing, and in no acute distress. HEENT: Head - Normocephalic, atraumatic. Eyes - PAMELA bilaterally and EOMI. Ears - normal external appearance, hearing intact. Nose - normal, no erythema. Throat - mucous membranes moist, pharynx without lesions. Neck: Supple, trachea midline. Cardiovascular: S1, S2 normal. No murmurs, rubs, clicks or gallops appreciated. No pedal edema. Respiratory: Lungs clear to auscultation, no wheezes, rales or rhonchi heard. Abdomen: Soft, obese, non-tender, normal bowel sounds, non-distended, no masses or organomegaly appreciated. Neurological: Grossly normal motor and sensory exam. No focal deficits. Musculoskeletal: No joint tenderness, deformity or swelling. Skin: Normal coloration and turgor. No rashes. Psych: Alert, oriented x 3. Normal mood and affect. Results from last 7 days Lab Units 06/24/22 0840 06/23/22 0440 06/21/22 1104 WBC K/mcL 7.54 10.12 20.70* HGB g/dL 8.6* 8.4* 10.9* HCT % 29.6* 28.1* 36.1 PLT K/mcL 281 303 503* Results from last 7 days Lab Units 06/24/22 0840 06/23/22 0440 06/21/22 1104 SODIUM mmol/L 136 134* 130* 130* POTASSIUM mmol/L 5.3* 5.3* 5.2* 5.2* CHLORIDE mmol/L 107 105 97* 97* BUN mg/dL 34* 45* 48* 48* CREATININE mg/dL 2.48* 2.86* 2.61* 2.61* CALCIUM mg/dL 8.5 8.0* 9.4 TOTAL PROTEIN g/dL -- -- 8.0 ALK PHOS U/L -- -- 81 ALTR U/L -- -- 131* AST U/L -- -- 712* GLUCOSE mg/dL 80 85 124* 124* Results from last 7 days Lab Units 06/21/22 1135 INR 1.1 Intake/Output last 3 shifts: I/O last 3 completed shifts: In: 215.2 [I.V.:215.2] Out: - 06/23 CT A/P IMPRESSION: 1. There is fluid throughout the colon which may be consistent with rapid transit/diarrhea. 2. Hepatic steatosis. 3. Extensive aortic calcification. Laboratory and Additional Data Reviewed: Reviewed 06/24/22 10:28 AM: Laboratory, Pathology, Radiology, Medications, and Transcriptions * Ryan Loo MD - 06/23/2022 2:06 PM EDT [facility] [place] Assessment and Plan Radha Shafer is a 62 y.o. female patient of Jonathan Rutherford CNP with history of COPD, chronic kidney disease stage III, hypertension, rectal prolapse s/p surgery at [facility] on March 2022 who presented to the emergency department with 4 days of diarrhea, nausea diffuse abdominal pain. As noted above, symptoms started 4 days ago, watery diarrhea more than 5 episodes per day, associated diffuse abdominal pain and chills, admission to [facility] without vomiting, patient denies recent antibioticexposure, no history of C. difficile, history of rectal prolapse. Watery diarrhea Sepsis with lactic acidosis Blood cultures were obtained Significant leukocytosis above 20,000 CT of the abdomen showing fluid throughout the colon may consistent with a rapid diarrhea. C. Difficile - negative Discontinue all antibiotics Continue with Aggressive IV hydration Zofran Stool /GI PRC panel negative Continue present care. GI follow-up to continue. Not in acute distress. Advance diet as tolerated. Rectal prolpase. S/p surgery March 2022 Chronic anemia Rectal bleeding per report S/p sigmoidoscopy showing mild proctitis, biopsies were taken 06/23/2022 H&H stable. Advance diet as advised. Daily monitoring of labs. KRISTIN on chronic kidney disease stage III Hyperkalemia secondary to KRISTIN Creatinine baseline around 1.2-1.3 with GFR 40-50 Aggressive IV hydration Check daily CMP Resolving to baseline. Hyponatremia, hypovolemic hyponatremia, aggressive IV hydration Hypertension, hold lisinopril due to KRISTIN, continue amlodipine Hypothyroidism, levothyroxine COPD, albuterol as needed Admitted From: home Medication Reconciliation: Verified Code Status: Full Code Quality Measures DVT Prophylaxis: SCDs Diaz Catheter: absent Code Status: Full Code Quality Measures DVT Prophylaxis: SCDs Diaz Catheter: none Disposition Discharge Location: home Estimated Discharge Date: June 2022 outpatient Testing: none Subjective Complaining of abdominal distention and discomfort after sigmoidoscopy. No better Review of Systems All systems have been reviewed and are negative except as noted in HPI or below Objective BP (!) 185/90 Pulse (!) 102 Temp 98.1 F (36.7 C) (Oral) Resp 16 Ht 5' 4 Wt 105.2 kg (232lb) SpO2 91% BMI 39.82 kg/m Physical Examination General Appearance: alert; acutely ill appearing; in mild acute distress HEENT: Head- normocephalic; Eyes- EOMI, sclera anicteric; Ears- hearing intact; Nose- no nasal discharge; Throat- mucous membranes moist Cardiovascular: regular rate and rhythm; normal S1, S2; no murmurs, rubs, clicks or gallops; no peripheral edema Respiratory: lungs clear to auscultation; without wheezes, rales or rhonchi; on room air Abdomen: soft, non-tender, non-distended; positive bowel sounds Neurological: oriented x 3; normal speech; no focal findings or movement disorder noted Musculoskeletal: no significant deformity or tenderness to palpation Skin: normal coloration; no obvious rashes, lesions or skin breakdown Psych: normal mood and affect Results/Medications Reviewed 06/23/2022 2:06 PM Laboratory, Microbiology, Medications, and Transcriptions * Kailee Louis CNP - 06/22/2022 11:41 AM EDT [facility] [place] Assessment and Plan Radha Shafer is a 62 y.o. female patient of Jonathan Rutherford CNP with history of COPD, chronic kidney disease stage III, hypertension, rectal prolapse s/p surgery at [facility] on March 2022 who presented to the emergency department with 4 days of diarrhea, nausea diffuse abdominal pain. As noted above, symptoms started 4 days ago, watery diarrhea more than 5 episodes per day, associated diffuse abdominal pain and chills, admission to nausea without vomiting, patient denies recent antibioticexposure, no history of C. difficile, history of rectal prolapse. Watery diarrhea Sepsis with lactic acidosis Blood cultures were obtained Significant leukocytosis above 20,000 CT of the abdomen showing fluid throughout the colon may consistent with a rapid diarrhea. C. Difficile - negative Discontinue all antibiotics Continue with Aggressive IV hydration Zofran Stool /GI PRC panel negative Will start immodium and protonix IV this am Rectal prolpase. S/p surgery March 2022 Chronic anemia Rectal bleeding per report As noted above, patient reports rectal bleeding, rectal exam was performed emergency department, nohemorrhoids, monitor CBC daily, hemoglobin actually at baseline 9.5-10.5 KRISTIN on chronic kidney disease stage III Hyperkalemia secondary to KRISTIN Creatinine baseline around 1.2-1.3 with GFR 40-50 Aggressive IV hydration Check daily CMP Hyponatremia, hypovolemic hyponatremia, aggressive IV hydration Hypertension, hold lisinopril due to KRISTIN, continue amlodipine Hypothyroidism, levothyroxine COPD, albuterol as needed Admitted From: home Medication Reconciliation: Verified Code Status: Full Code Quality Measures DVT Prophylaxis: SCDs Diaz Catheter: absent Select if patient is initially admitted to critical care unit The following Vizient risk variables were noted and present on admission: Sepsis, Hypovolemia, Hyponatremia, Hyperkalemia, and Acidosis Please see assessment and plan for further details. Chief Complaint abdominal pain, diarrhea History of Present Illness Radha Shafer is a 62 y.o. female patient of Jonathan Rutherford CNP with history of COPD, chronic kidney disease stage III, hypertension, rectal prolapse s/p surgery at [facility] on March 2022 who presented to the emergency department with 4 days of diarrhea, nausea diffuse abdominal pain. As noted above, symptoms started 4 days ago, watery diarrhea more than 5 episodes per day, associated diffuse abdominal pain and chills, admission to nausea without vomiting, patient denies recent antibioticexposure, no history of C. difficile, history of rectal prolapse. Family Contact Information Code Status: Full Code Quality Measures DVT Prophylaxis: Diaz Catheter: none Disposition Discharge Location: home Estimated Discharge Date: uncertain Outpatient Testing: none Subjective Appears ill; diarrhea continues; Review of Systems All systems have been reviewed and are negative except as noted in HPI or below Objective BP 135/81 Pulse 93 Temp 98.5 F (36.9 C) (Oral) Resp 16 Ht 5' 4 Wt 105.2 kg (232 lb) SpO2 92% BMI 39.82 kg/m Physical Examination General Appearance: alert; acutely ill appearing; in mild acute distress HEENT: Head- normocephalic; Eyes- EOMI, sclera anicteric; Ears- hearing intact; Nose- no nasal discharge; Throat- mucous membranes moist Cardiovascular: regular rate and rhythm; normal S1, S2; no murmurs, rubs, clicks or gallops; no peripheral edema Respiratory: lungs clear to auscultation; without wheezes, rales or rhonchi; on room air Abdomen: soft, non-tender, non-distended; positive bowel sounds Neurological: oriented x 3; normal speech; no focal findings or movement disorder noted Musculoskeletal: no significant deformity or tenderness to palpation Skin: normal coloration; no obvious rashes, lesions or skin breakdown Psych: normal mood and affect Results/Medications Reviewed 06/22/2022 11:41 AM Laboratory, Microbiology, Medications, and Transcriptions documented in this [id number] Note* Sign Off Note - Nessa Jay CNP - 06/28/2022 10:23 AM EDT Gastroenterology Inpatient Follow-up 06/28/2022 Nessa Jay CNP [facility] Patient: Radha Shafer Date of : 1960 (62 y.o.) PCP: Jonathan Rutherford CNP SUBJECTIVE: History Since Last Visit: reports 1 episode watery diarrhea yesterday, epigastric pain when bendingforward ASSESSMENT/PLAN: Chronic diarrhea- Intermittent watery diarrhea for the past 6 months 1-3 x daily, imodium improves sx but makes her constipated, cannot tolerate metamucil Had recent colonoscopy 02/17/22- mild redness distal rectum due to prolapse rectal prolapse surgery 03/30/22 S/P flex sig 06/23/22: very mild erythema rectum (mild proctitis) sigmoid colon was normal, biopsieswere taken from rectum and sigmoid colon. Proctitis could be secondary to recent surgery for rectal.. Sigmoid biopsy: Colonic mucosa without diagnostic abnormality rectal biopsy: Focal active colitis, see note. Note: Features of chronicity are not appreciated and there is no evidence of dysplasia. The differential diagnosis includes infection, adverse drug reaction and ischemia. Noted leukocytosis on admission likely infectious in nature, started flagyl 06/24. 06/28/22 Patient expresses concern over a variety of complaints including epigastric pain while bending overongoing diarrhea muscle weakness and fatigue as well as low iron and concern for malabsorption. Iron studies reviewed and are largely unremarkable, ferritin within normal limits, iron saturation slightly low with TIBC on the low end of normal/likely component of anemia chronic disease. She reports only 1 episode of watery diarrhea yesterday, review of the MAR it appears she did not receive Imodium yesterday as recommended. she was taking Imodium for diarrhea at home previously and says it constipated for several days and believes it contributed to her rectal prolapse. I recommended she try Metamucil as well to add bulk to the stool and so she does not like the taste/texture of this. Discussed pathology findings and recommendations, favored infectious or possibly secondary to medication/drug reaction. Known side effect of many of her current medications. Discussed with hospitalist agree with adding Cipro and scheduling Imodium. Ordered TTG IgA to evaluate for any possible celiac disease. epigastric pain- Intermittent symptoms, on PPI most notable while bending over at the waist Says she has known hiatal hernia No recent EGD Recommend continuing PPI , avoid bending at the waist bend using knees Can follow-up in office to evaluate for outpatient EGD We will have office call to schedule. Patient can be discharged from a GI standpoint. Please call if any further concerns. No new Assessment & Plan notes have been filed under this hospital service since the last note was generated. Service: Gastroenterology Pending Lab and Radiology Results Order Current Status Tissue Transglutaminase, IgA In process Interpretation of Testing: I personally reviewed the lab, notes, path, procedure report, meds Review of Systems: All other systems reviewed and negative other than HPI OBJECTIVE: Physical Examination: BP (!) 169/94 Pulse 84 Temp 98.7 F (37.1 C) (Oral) Resp 16 Ht 5' 4 Wt 105.2 kg (232 lb) SpO2 96% BMI 39.82 kg/m General Appearance: Alert, well appearing, and in no acute distress. HEENT: Head - Normocephalic, atraumatic. Eyes - PAMELA bilaterally and EOMI. Ears - normal external appearance, hearing intact. Nose - normal, no erythema. Throat - mucous membranes moist, pharynx without lesions. Neck: Supple, trachea midline. Cardiovascular: S1, S2 normal. No murmurs, rubs, clicks or gallops appreciated. No pedal edema. Respiratory: Lungs clear to auscultation, no wheezes, rales or rhonchi heard. Abdomen: Soft, non-tender, obese,normal bowel sounds, non-distended, no masses or organomegaly appreciated. Neurological: Grossly normal motor and sensory exam. No focal deficits. Musculoskeletal: No joint tenderness, deformity or swelling. Skin: Normal coloration and turgor. No rashes. Psych: Alert, oriented x 3. Normal mood and affect. Laboratory and Additional Data Reviewed: Reviewed 06/28/22 10:23 AM: Laboratory, Pathology, Radiology, Medications, and Transcriptions [facility] Work Phone: [phone]) 281-763708-23-2022 Miscellaneous Notes* Sign Off Note - Nessa Jay CNP - 06/28/2022 10:23 AM EDT Gastroenterology Inpatient Follow-up 06/28/2022 Nessa Jay CNP [facility] Patient: Radha Shafer Date of : 1960 (62 y.o.) PCP: Jonathan Rutherford CNP SUBJECTIVE: History Since Last Visit: reports 1 episode watery diarrhea yesterday, epigastric pain when bendingforward ASSESSMENT/PLAN: Chronic diarrhea- Intermittent watery diarrhea for the past 6 months 1-3 x daily, imodium improves sx but makes her constipated, cannot tolerate metamucil Had recent colonoscopy 02/17/22- mild redness distal rectum due to prolapse rectal prolapse surgery 03/30/22 S/P flex sig 06/23/22: very mild erythema rectum (mild proctitis) sigmoid colon was normal, biopsieswere taken from rectum and sigmoid colon. Proctitis could be secondary to recent surgery for rectal.. Sigmoid biopsy: Colonic mucosa without diagnostic abnormality rectal biopsy: Focal active colitis, see note. Note: Features of chronicity are not appreciated and there is no evidence of dysplasia. The differential diagnosis includes infection, adverse drug reaction and ischemia. Noted leukocytosis on admission likely infectious in nature, started flagyl 06/24. 06/28/22 Patient expresses concern over a variety of complaints including epigastric pain while bending overongoing diarrhea muscle weakness and fatigue as well as low iron and concern for malabsorption. Iron studies reviewed and are largely unremarkable, ferritin within normal limits, iron saturation slightly low with TIBC on the low end of normal/likely component of anemia chronic disease. She reports only 1 episode of watery diarrhea yesterday, review of the MAR it appears she did not receive Imodium yesterday as recommended. she was taking Imodium for diarrhea at home previously and says it constipated for several days and believes it contributed to her rectal prolapse. I recommended she try Metamucil as well to add bulk to the stool and so she does not like the taste/texture of this. Discussed pathology findings and recommendations, favored infectious or possibly secondary to medication/drug reaction. Known side effect of many of her current medications. Discussed with hospitalist agree with adding Cipro and scheduling Imodium. Ordered TTG IgA to evaluate for any possible celiac disease. epigastric pain- Intermittent symptoms, on PPI most notable while bending over at the waist Says she has known hiatal hernia No recent EGD Recommend continuing PPI , avoid bending at the waist bend using knees Can follow-up in office to evaluate for outpatient EGD We will have office call to schedule. Patient can be discharged from a GI standpoint. Please call if any further concerns. No new Assessment & Plan notes have been filed under this hospital service since the last note was generated. Service: Gastroenterology Pending Lab and Radiology Results Order Current Status Tissue Transglutaminase, IgA In process Interpretation of Testing: I personally reviewed the lab, notes, path, procedure report, meds Review of Systems: All other systems reviewed and negative other than HPI OBJECTIVE: Physical Examination: BP (!) 169/94 Pulse 84 Temp 98.7 F (37.1 C) (Oral) Resp 16 Ht 5' 4 Wt 105.2 kg (232 lb) SpO2 96% BMI 39.82 kg/m General Appearance: Alert, well appearing, and in no acute distress. HEENT: Head - Normocephalic, atraumatic. Eyes - PAMELA bilaterally and EOMI. Ears - normal external appearance, hearing intact. Nose - normal, no erythema. Throat - mucous membranes moist, pharynx without lesions. Neck: Supple, trachea midline. Cardiovascular: S1, S2 normal. No murmurs, rubs, clicks or gallops appreciated. No pedal edema. Respiratory: Lungs clear to auscultation, no wheezes, rales or rhonchi heard. Abdomen: Soft, non-tender, obese,normal bowel sounds, non-distended, no masses or organomegaly appreciated. Neurological: Grossly normal motor and sensory exam. No focal deficits. Musculoskeletal: No joint tenderness, deformity or swelling. Skin: Normal coloration and turgor. No rashes. Psych: Alert, oriented x 3. Normal mood and affect. Laboratory and Additional Data Reviewed: Reviewed 06/28/22 10:23 AM: Laboratory, Pathology, Radiology, Medications, and Transcriptions * Plan of Care - Lawanda Baker RN - 06/27/2022 5:33 PM EDT POC updated and reviewed. IVF started. POC continues. * Plan of Care - Angela Davila RN - 06/26/2022 5:19 PM EDT Problem: Actual or potential alteration in health Goal: Absence of healthcare acquired conditions Outcome: Partially Met Goal: Knowledge of Interdisciplinary Plan of Care Outcome: Partially Met Problem: Actual or potential alteration in health Goal: Absence of healthcare acquired conditions Outcome: Partially Met Goal: Knowledge of Interdisciplinary Plan of Care Outcome: Partially Met Goal: Knowledge of Enviroment Outcome: Completed Problem: Pain Goal: Manage acute pain Outcome: Partially Met Goal: Manage chronic pain Outcome: Partially Met Goal: Reduced pain sensation Outcome: Partially Met Goal: Achievement of comfort function goal Outcome: Partially Met Problem: Pressure Ulcer - Risk of Goal: Absence of pressure ulcer Outcome: Partially Met Problem: Plan for Discharge Goal: Knowledge of discharge plan and instructions Outcome: Partially Met * Plan of Care - Angela Davila RN - 06/24/2022 4:56 PM EDT Problem: Actual or potential alteration in health Goal: Absence of healthcare acquired conditions Outcome: Partially Met Goal: Knowledge of Interdisciplinary Plan of Care Outcome: Partially Met Goal: Knowledge of Enviroment Outcome: Completed Problem: Actual or potential alteration in health Goal: Absence of healthcare acquired conditions Outcome: Partially Met Goal: Knowledge of Interdisciplinary Plan of Care Outcome: Partially Met Goal: Knowledge of Enviroment Outcome: Partially Met Problem: Pain Goal: Manage acute pain Outcome: Partially Met Goal: Manage chronic pain Outcome: Partially Met Goal: Reduced pain sensation Outcome: Partially Met Goal: Achievement of comfort function goal Outcome: Partially Met Problem: Pressure Ulcer - Risk of Goal: Absence of pressure ulcer Outcome: Partially Met Problem: Plan for Discharge Goal: Knowledge of discharge plan and instructions Outcome: Partially Met * CDI Query - Sheri Hale MD - 06/24/2022 9:42 AM EDT 06/24/22 Addendum: Thank you for looking at this query; unable to find a response. Please respond in the progress notes. Query 2 of 2 Noted documentation of continuous home oxygen. Clinical Indicators: ED: history significant for oxygen dependent COPD 2 L Review of record: Pulmonary office visit 12/2021-Home Oxygen Concentrator with Portability Nasal cannula; 2 LPM; Continuous and/or During Exertion PMH: On home oxygen therapy 2L via [place], PRN with walking, activity Please further specify the patient's respiratory status related to COPD and oxygen dependence. For Example: COPD with chronic respiratory failure COPD without chronic respiratory failure Other (please specify) Unable to determine Thank you, Peace Zaragoza RN, BSN [facility] [phone] After business hours you may contact Za Lopes at [phone] (Weekdays until 10 PM and weekends 8 AM - 10 PM) * CDI Query - Sheri Hale MD - 06/24/2022 9:41 AM EDT 06/24/22 Addendum: Thank you for looking at this query; unable to find a response. Please respond in the progress notes. Query 1 of 2 Noted documentation of sepsis. Clinical Indicators: PN 06/22: Stool /GI PRC panel negative Will start immodium and protonix IV this am C. Difficile - negative Discontinue all antibiotics H&P: Sepsis with lactic acidosis...Significant leukocytosis above 20,000 ED: does have significant leukocytosis but no obvious sepsis at this time she has no fever no lactic acidosis is noted.. Patient's had serial abdominal examination remained stable. I am uncertain as to the etiology of her diarrhea illness Lab 06/21: lactic acid 0.9, WBC 20.7, neutrophils 88.5 After study, please clarify if sepsis is a current condition during this hospitalization. For Example: Sepsis ruled out Sepsis as evidenced by (please include clinical evidence) Other (please specify) Unable to determine Thank you, Peace Zaragoza RN, BSN [facility] [phone] After business hours you may contact Za Lopes at [phone] (Weekdays until 10pm) * Brief Op Note - Tyshawn Santos MD - 06/23/2022 12:49 PM EDT Sigmoidoscopy revealed mild proctitis sigmoid colon was normal biopsies were taken from rectum and sigmoid colon. Proctitis could be secondary to recent surgery for rectal prolapse. * CDI Query - Ryan Loo MD - 06/23/2022 8:03 AM EDT Noted documentation of continuous home oxygen. Clinical Indicators: ED: history significant for oxygen dependent COPD 2 L Review of record: Pulmonary office visit 12/2021-Home Oxygen Concentrator with Portability Nasal cannula; 2 LPM; Continuous and/or During Exertion PMH: On home oxygen therapy 2L via [place], PRN with walking, activity Please further specify the patient's respiratory status related to COPD and oxygen dependence. For Example: COPD with chronic respiratory failure COPD without chronic respiratory failure Other (please specify) Unable to determine Thank you, Peace Zaragoza RN, BSN [facility] [phone] After business hours you may contact Za Lopes at [phone] (Weekdays until 10 PM and weekends 8 AM - 10 PM) * CDI Query - Ryan Loo MD - 06/23/2022 7:54 AM EDT Noted documentation of sepsis. Clinical Indicators: PN 06/22: Stool /GI PRC panel negative Will start immodium and protonix IV this am C. Difficile - negative Discontinue all antibiotics H&P: Sepsis with lactic acidosis...Significant leukocytosis above 20,000 ED: does have significant leukocytosis but no obvious sepsis at this time she has no fever no lactic acidosis is noted.. Patient's had serial abdominal examination remained stable. I am uncertain as to the etiology of her diarrhea illness Lab 06/21: lactic acid 0.9, WBC 20.7, neutrophils 88.5 After study, please clarify if sepsis is a current condition during this hospitalization. For Example: Sepsis ruled out Sepsis as evidenced by (please include clinical evidence) Other (please specify) Unable to determine Thank you, Peace Zaragoza RN, BSN [facility] [phone] After business hours you may contact Za Moses at [phone] (Weekdays until 10pm) * Plan of Care - Mariano Green RN - 06/22/2022 6:04 PM EDT Problem: Actual or potential alteration in health Goal: Absence of healthcare acquired conditions Outcome: Partially Met Goal: Knowledge of Interdisciplinary Plan of Care Outcome: Partially Met Goal: Knowledge of Enviroment Outcome: Partially Met Problem: Actual or potential alteration in health Goal: Absence of healthcare acquired conditions Outcome: Partially Met Goal: Knowledge of Interdisciplinary Plan of Care Outcome: Partially Met Goal: Knowledge of Enviroment Outcome: Partially Met Problem: Pain Goal: Manage acute pain Outcome: Partially Met Goal: Manage chronic pain Outcome: Partially Met Goal: Reduced pain sensation Outcome: Partially Met Goal: Achievement of comfort function goal Outcome: Partially Met Problem: Pressure Ulcer - Risk of Goal: Absence of pressure ulcer Outcome: Partially Met Problem: Plan for Discharge Goal: Knowledge of discharge plan and instructions Outcome: Partially Met * Plan of Care - Olga Russell MD - 06/21/2022 8:22 PM EDT Stool PCR still pending. Will not leave the patient uncovered overnight without antibiotics, will start the patient empirically on ciprofloxacin, ceftriaxone (allergy to penicillins) and p.o. vancomycin, de-escalate antibiotics as indicated when stool PCR finally resulted * Plan of Care - Mariano Green RN - 06/21/2022 7:02 PM EDT Problem: Actual or potential alteration in health Goal: Absence of healthcare acquired conditions Outcome: Partially Met Goal: Knowledge of Interdisciplinary Plan of Care Outcome: Partially Met Goal: Knowledge of Enviroment Outcome: Partially Met Problem: Actual or potential alteration in health Goal: Absence of healthcare acquired conditions Outcome: Partially Met Goal: Knowledge of Interdisciplinary Plan of Care Outcome: Partially Met Goal: Knowledge of Enviroment Outcome: Partially Met Problem: Pain Goal: Manage acute pain Outcome: Partially Met Goal: Manage chronic pain Outcome: Partially Met Goal: Reduced pain sensation Outcome: Partially Met Goal: Achievement of comfort function goal Outcome: Partially Met Problem: Pressure Ulcer - Risk of Goal: Absence of pressure ulcer Outcome: Partially Met Problem: Plan for Discharge Goal: Knowledge of discharge plan and instructions Outcome: Partially Met * Plan of Care - Cheryl Martini RN - 06/21/2022 5:05 PM EDT POC initiated documented in this [id number] Note* Plan of Care - Lawanda Baker RN - 06/27/2022 5:33 PM EDT POC updated and reviewed. IVF started. POC continues. [id number] Note* Plan of Care - Angela Davila RN - 06/26/2022 5:19 PM EDT Problem: Actual or potential alteration in health Goal: Absence of healthcare acquired conditions Outcome: Partially Met Goal: Knowledge of Interdisciplinary Plan of Care Outcome: Partially Met Problem: Actual or potential alteration in health Goal: Absence of healthcare acquired conditions Outcome: Partially Met Goal: Knowledge of Interdisciplinary Plan of Care Outcome: Partially Met Goal: Knowledge of Enviroment Outcome: Completed Problem: Pain Goal: Manage acute pain Outcome: Partially Met Goal: Manage chronic pain Outcome: Partially Met Goal: Reduced pain sensation Outcome: Partially Met Goal: Achievement of comfort function goal Outcome: Partially Met Problem: Pressure Ulcer - Risk of Goal: Absence of pressure ulcer Outcome: Partially Met Problem: Plan for Discharge Goal: Knowledge of discharge plan and instructions Outcome: Partially Met [id number] Note* Plan of Care - Angela Davila RN - 06/24/2022 4:56 PM EDT Problem: Actual or potential alteration in health Goal: Absence of healthcare acquired conditions Outcome: Partially Met Goal: Knowledge of Interdisciplinary Plan of Care Outcome: Partially Met Goal: Knowledge of Enviroment Outcome: Completed Problem: Actual or potential alteration in health Goal: Absence of healthcare acquired conditions Outcome: Partially Met Goal: Knowledge of Interdisciplinary Plan of Care Outcome: Partially Met Goal: Knowledge of Enviroment Outcome: Partially Met Problem: Pain Goal: Manage acute pain Outcome: Partially Met Goal: Manage chronic pain Outcome: Partially Met Goal: Reduced pain sensation Outcome: Partially Met Goal: Achievement of comfort function goal Outcome: Partially Met Problem: Pressure Ulcer - Risk of Goal: Absence of pressure ulcer Outcome: Partially Met Problem: Plan for Discharge Goal: Knowledge of discharge plan and instructions Outcome: Partially Met T [id number] Note* CDI Query - Sheri Hale MD - 06/24/2022 9:42 AM EDT 06/24/22 Addendum: Thank you for looking at this query; unable to find a response. Please respond in the progress notes. Query 2 of 2 Noted documentation of continuous home oxygen. Clinical Indicators: ED: history significant for oxygen dependent COPD 2 L Review of record: Pulmonary office visit 12/2021-Home Oxygen Concentrator with Portability Nasal cannula; 2 LPM; Continuous and/or During Exertion PMH: On home oxygen therapy 2L via NC, PRN with walking, activity Please further specify the patient's respiratory status related to COPD and oxygen dependence. For Example: COPD with chronic respiratory failure COPD without chronic respiratory failure Other (please specify) Unable to determine Thank you, Peace Zaragoza RN, BSN [facility] [phone] After business hours you may contact Za Lopes at [phone] (Weekdays until 10 PM and weekends 8 AM - 10 PM) [id number] Note* CDI Query - Sheri Hale MD - 06/24/2022 9:41 AM EDT 06/24/22 Addendum: Thank you for looking at this query; unable to find a response. Please respond in the progress notes. Query 1 of 2 Noted documentation of sepsis. Clinical Indicators: PN 06/22: Stool /GI PRC panel negative Will start immodium and protonix IV this am C. Difficile - negative Discontinue all antibiotics H&P: Sepsis with lactic acidosis...Significant leukocytosis above 20,000 ED: does have significant leukocytosis but no obvious sepsis at this time she has no fever no lactic acidosis is noted.. Patient's had serial abdominal examination remained stable. I am uncertain as to the etiology of her diarrhea illness Lab 06/21: lactic acid 0.9, WBC 20.7, neutrophils 88.5 After study, please clarify if sepsis is a current condition during this hospitalization. For Example: Sepsis ruled out Sepsis as evidenced by (please include clinical evidence) Other (please specify) Unable to determine Thank you, Peace Zaragoza RN, BSN [facility] [phone] After business hours you may contact Za Lopes at [phone] (Week until 10pm) [id number] Nurse Note* Lois Simmons RN - 06/23/2022 12:56 PM EDT Report called to primary nurse Josue, patient to return to room 2122. [id number] Nurse Note* Lois Simmons RN - 06/23/2022 12:56 PM EDT Report called to primary nurse Josue, patient to return to room 3. * Susy Shelton RN - 06/23/2022 11:47 AM EDT Pt received Tap water enema by primary nurse. States still not clear. Pt is not receiving any anesthesia today for flex sig documented in this [id number] Note* Brief Op Note - Tyshawn Santos MD - 06/23/2022 12:49 PM EDT Sigmoidoscopy revealed mild proctitis sigmoid colon was normal biopsies were taken from rectum and sigmoid colon. Proctitis could be secondary to recent surgery for rectal prolapse. [facility] Work Phone: [phone] Nurse Note* Susy Shelton RN - 06/23/2022 11:47 AM EDT Pt received Tap water enema by primary nurse. States still not clear. Pt is not receiving any anesthesia today for flex sig [id number] Consult note* Debra Adamson CNP - 06/23/2022 9:40 AM EDTAssociated Order(s): IP CONSULT TO GASTROENTEROLOGY Gastroenterology Inpatient Consult 06/23/2022 Debra Adamson CNP [facility] Patient: Radha Shafer Date of : 1960 (62 y.o.) Referring Provider: Refer to consult order in electronic medical record PCP: Jonathan Rutherford CNP SUBJECTIVE: Chief Complaint/Reason for Consult: Chronic diarrhea x6 months ASSESSMENT/PLAN: 62 y.o. 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 Diarrhea- Intermittent watery diarrhea for the past 6 months 1 episode of bright red blood after multiple diarrhea episodes Denies anymore bright red blood Denies dark red/maroon or tarry stools, BM always dark-greenish, she takes iron Hemoglobin 8.4 today, hemoglobin 10.9 on admission Normal saline at 100/hour continuous Stool PCR negative Imodium as needed TSH 0.68 CT A/P IMPRESSION: 1. There is fluid throughout the colon which may be consistent with rapid transit/diarrhea. 2. Hepatic steatosis. 3. Extensive aortic calcification. Discussed with Dr Santos and will plan for flexible sigmoidoscopy this afternoon to obtain biopsies. History of Present Illness: Radha Shafer is a 62 y.o. 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 She was admitted under the hospitalist service for further treatment. Has been having generalized abdominal pain followed by episodes of diarrhea for the past 6 months. Bending over and eating trigger sharp generalized abdominal pain followed by diarrhea. She reports she felt constipated 4 days ago took some stool softeners, bowel movement started out soft, formed, dark brown but then persisted to watery diarrhea. After multiple episodes she noted bright red blood on toilet tissue and in toilet water. Reports diarrhea is large volume, watery. She wears an adult brief due to incontinence. She has tried Imodium without much relief. Was started on metformin couplemonths ago for her diabetes. Reports 12 pound weight loss over the last couple months. Denies any recent antibiotic use. Has tried a fiber supplement and cannot tolerate the texture. Denies nausea, vomiting, epigastric pain. S/p rectal prolapse surgery March 2022. Colonoscopy 02/17/2022 reviewed. No reduced sphincter tone, medium lipoma in the ascending colon, localized area of moderately erythematous mucosa in the distal rectum from rectal prolapse, no biopsies obtained. Pending Lab and Radiology Results Order Current Status Blood Culture Aerobic/Anaerobic Preliminary result Blood Culture Aerobic/Anaerobic Preliminary result Interpretation of Testing: I personally reviewed the labs, images, notes, procedures Review of Systems: General ROS: negative other than mentioned in HPI Past Medical History: Diagnosis Date Anxiety Arthritis Back pain Bladder problem incontinence Cancer (HCC) thyroid Chronic pain disorder Colitis sigmoid COPD (chronic obstructive pulmonary disease) (HCC) 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HCC) Per pt. - Depression Diabetes (HCC) Diverticulosis Emphysema of lung (HCC) GERD (gastroesophageal reflux disease) Hepatic steatosis History of echocardiogram History of stress test Hypertension Hypothyroidism Kidney disease, chronic, stage I (GFR over 89 ml/min) stage 3 Obesity On home oxygen therapy 2L via NC, PRN with walking, activity Sleep apnea noncompliant with CPAP; uses home oxygen Sleep apnea, obstructive Past Surgical History: Procedure Laterality Date ALTEMEIER PROCEDURE N/A 03/30/2022 Procedure: ALTEMEIER PROCEDURE; Surgeon: Jada Vargas MD; [place] [facility] [place]; Service: Colorectal CARDIOVASCULAR STRESS TEST CHOLECYSTECTOMY COLONOSCOPY with biopsies COLONOSCOPY N/A 02/17/2022 Procedure: COLONOSCOPY; Surgeon: Jada Vargas MD; [place] [facility] [place]; Service: Colorectal GALLBLADDER HYSTERECTOMY JOINT REPLACEMENT Left knee ORTHOPEDIC SURGERY r wrist surgery, left ankle, right rotator cuff ROTATOR CUFF REPAIR Right THYROIDECTOMY N/A 07/15/2015 Procedure: TOTAL THYROIDECTOMY; Surgeon: Lopez Alonso MD; Location: [facility] NEUR[facility] OR; Service: US ECHO TRANSTHORACIC FOLLOWUP LIMITED WRIST SURGERY Right Family History Problem Relation Age of Onset Heart disease Mother Lupus Mother Stroke Mother Arthritis Mother Heart attack Mother Heart disease Father Heart attack Father Hypertension Father Hypertension Sister Hypertension Brother Prostate cancer Brother Colon cancer Brother Hypertension Brother Prostate cancer Brother Colon cancer Brother Hypertension Brother Prostate cancer Brother Stomach cancer Brother Heart attack Maternal Grandmother Heart attack Maternal Grandfather Heart attack Paternal Grandmother Heart attack Paternal Grandfather Breast cancer Neg Hx Social History Tobacco Use Smoking Status Former Packs/day: 1.00 Years: 20.00 Pack years: 20.00 Types: Cigarettes Quit date: 07/10/2013 Years since quittin.9 Smokeless Tobacco Never Additional History Comments: None Allergies: Penicillins Current HOME Medications: Outpatient Medications Marked as Taking for the 06/21/22 encounter (Hospital Encounter): albuterol (PROVENTIL HFA;VENTOLIN HFA) 90 mcg/actuation inhaler, Inhale 2 puffs every 6 (six) hoursas needed for wheezing. aspirin 81 mg chewable tablet, Chew and Swallow 81 mg daily . buPROPion (WELLBUTRIN) 75 MG tablet, Take 1 (one) tablet (75 mg total) by mouth daily . cholecalciferol, vitamin D3, 1,000 unit tablet, Take 1,000 Units by mouth daily. doxepin (SINEQUAN) 75 MG capsule, Take 1 (one) capsule (75 mg total) by mouth nightly as needed forsleep . DULoxetine (CYMBALTA) 60 MG capsule, Take 60 mg by mouth daily. ferrous sulfate 325 (65 FE) MG tablet, Take 325 mg by mouth daily with breakfast. fluticasone propionate (FLONASE) 50 mcg/actuation nasal spray, Instill 2 (two) sprays into each nostril daily . xpfarczgnjp-fhnardhps-hafzteqi (Trelegy Ellipta) 200-62.5-25 mcg DsDv, Inhale 1 (one) Inhalation daily . levothyroxine (SYNTHROID, LEVOTHROID) 175 MCG tablet, Take 1 (one) tablet (175 mcg total) by mouth once daily . lisinopril (PRINIVIL,ZESTRIL) 40 MG tablet, Take 40 mg by mouth daily. metFORMIN (GLUCOPHAGE) 500 MG tablet, Take 500 mg by mouth 2 (two) times a day . omeprazole (PRILOSEC) 40 MG capsule, Take 40 mg by mouth daily . tiZANidine (ZANAFLEX) 4 MG capsule, Take 4 mg by mouth nightly Pt takes 3 pills for a total of 12mg. triheptanoin (Dojolvi) 8.3 kcal/mL Liqd, Take by mouth 4 (four) times a day . Current HOSPITAL Medications: acetaminophen (TYLENOL) tablet 650 mg, 650 mg, Oral, Q4H PRN albuterol (PROVENTIL) 2.5 mg /3 mL (0.083 %) nebulizer solution 0.63 mg, 0.63 mg, Nebulization, Q6HPRN buPROPion (WELLBUTRIN) tablet 75 mg, 75 mg, Oral, BID doxepin (SINEQUAN) capsule 50 mg, 50 mg, Oral, Nightly PRN DULoxetine (CYMBALTA) DR capsule 60 mg, 60 mg, Oral, Daily levothyroxine (SYNTHROID, LEVOTHROID) tablet 175 mcg, 175 mcg, Oral, Daily loperamide (IMODIUM) capsule 2 mg, 2 mg, Oral, 4x Daily PRN naloxone (NARCAN) injection 0.1 mg, 0.1 mg, Intravenous, PRN AND Notify physician, , , Until Discontinued AND naloxone (NARCAN) injection 0.4 mg, 0.4 mg, Intravenous, PRN oxyCODONE (ROXICODONE) immediate release tablet 5 mg, 5 mg, Oral, Q4H PRN pantoprazole (PROTONIX) injection 40 mg, 40 mg, Intravenous, Daily Saline lock IV, , , Continuous AND sodium chloride (PF) (NS) flush 5 mL, 5 mL, Intravenous, PRNAND sodium chloride (PF) (NS) flush 5 mL, 5 mL, Intravenous, Q8H TRACY AND sodium chloride 0.9% (NS), 0-150 mL/hr, Intravenous, PRN sodium chloride 0.9% (NS), 100 mL/hr, Intravenous, Continuous OBJECTIVE: Physical Examination: BP (!) 169/57 Pulse 97 Temp 98.9 F (37.2 C) (Oral) Resp 16 Ht 5' 4 Wt 105.2 kg (232 lb) SpO2 96% BMI 39.82 kg/m General Appearance: Alert, well appearing, no acute distress HEENT: Head- Normocephalic, atraumatic. Eyes: No scleral icterus, normal conjunctive. Ears: Normal appearance, hearing intact. Nares: Normal pink mucosa, no exudate. Throat: Mucus membranes moist, noerythema. Neck: Supple, trachea midline. Cardiovascular: Regular rate and rhythm, no murmur, rub or gallop. Respiratory: Respirations unlabored, Lungs clear to auscultation, no wheezes, crackles or rhonchi. O2 at 1 L/min via nasal cannula Abdomen: Soft, obese, non distended, normoactive bowel sounds, generalized tenderness to palpation,no organomegaly or masses. Extremities: No clubbing, cyanosis or edema. Musculoskeletal: No joint deformity, swelling or tenderness Neurological: Alert and oriented, no focal deficits, grossly normal motor and sensory Skin: Normal color and turgor, no jaundice or rashes. Psych: Normal mood and affect. Laboratory and Additional Data Reviewed: Reviewed 06/23/22 9:40 AM: Laboratory, Radiology, Medications, and Transcriptions Associated attestation - Tyshawn Santos MD - 06/23/2022 12:40 PM EDT I personally interviewed and examined the patient. I reviewed [facility] nurse practitioner consultation report and agree with herdocumented history, physical exam and assessment and plan. 62y.o. 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 documented history, physical exam and assessment and plan. She has diarrhea off and on for the last 6-month and had colonoscopy 2 months ago which was unremarkable she had surgery for prolapse rectum a few months ago. Her hemoglobin dropped from 10.9-8.4 and has bright red blood per rectum. The cause of diarrhea not clear will do sigmoidoscopy as she already had colonoscopy and take biopsies to rule out microcytic colitis. [id number] Consult note* Debra Adamson CNP - 06/23/2022 9:40 AM EDTAssociated Order(s): IP CONSULT TO GASTROENTEROLOGY Gastroenterology Inpatient Consult 06/23/2022 Debra Adamson CNP [facility] Patient: Radha Shafer Date of : 1960 (62 y.o.) Referring Provider: Refer to consult order in electronic medical record PCP: Jonathan Rutherford CNP SUBJECTIVE: Chief Complaint/Reason for Consult: Chronic diarrhea x6 months ASSESSMENT/PLAN: 62 y.o. 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 Diarrhea- Intermittent watery diarrhea for the past 6 months 1 episode of bright red blood after multiple diarrhea episodes Denies anymore bright red blood Denies dark red/maroon or tarry stools, BM always dark-greenish, she takes iron Hemoglobin 8.4 today, hemoglobin 10.9 on admission Normal saline at 100/hour continuous Stool PCR negative Imodium as needed TSH 0.68 CT A/P IMPRESSION: 1. There is fluid throughout the colon which may be consistent with rapid transit/diarrhea. 2. Hepatic steatosis. 3. Extensive aortic calcification. Discussed with Dr Santos and will plan for flexible sigmoidoscopy this afternoon to obtain biopsies. History of Present Illness: Radha Shafer is a 62 y.o. 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 She was admitted under the hospitalist service for further treatment. Has been having generalized abdominal pain followed by episodes of diarrhea for the past 6 months. Bending over and eating trigger sharp generalized abdominal pain followed by diarrhea. She reports she felt constipated 4 days ago took some stool softeners, bowel movement started out soft, formed, dark brown but then persisted to watery diarrhea. After multiple episodes she noted bright red blood on toilet tissue and in toilet water. Reports diarrhea is large volume, watery. She wears an adult brief due to incontinence. She has tried Imodium without much relief. Was started on metformin couplemonths ago for her diabetes. Reports 12 pound weight loss over the last couple months. Denies any recent antibiotic use. Has tried a fiber supplement and cannot tolerate the texture. Denies nausea, vomiting, epigastric pain. S/p rectal prolapse surgery March 2022. Colonoscopy 02/17/2022 reviewed. No reduced sphincter tone, medium lipoma in the ascending colon, localized area of moderately erythematous mucosa in the distal rectum from rectal prolapse, no biopsies obtained. Pending Lab and Radiology Results Order Current Status Blood Culture Aerobic/Anaerobic Preliminary result Blood Culture Aerobic/Anaerobic Preliminary result Interpretation of Testing: I personally reviewed the labs, images, notes, procedures Review of Systems: General ROS: negative other than mentioned in HPI Past Medical History: Diagnosis Date Anxiety Arthritis Back pain Bladder problem incontinence Cancer (HCC) thyroid Chronic pain disorder Colitis sigmoid COPD (chronic obstructive pulmonary disease) (HCC) 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HCC) Per pt. - Depression Diabetes (HCC) Diverticulosis Emphysema of lung (HCC) GERD (gastroesophageal reflux disease) Hepatic steatosis History of echocardiogram History of stress test Hypertension Hypothyroidism Kidney disease, chronic, stage I (GFR over 89 ml/min) stage 3 Obesity On home oxygen therapy 2L via [place], PRN with walking, activity Sleep apnea noncompliant with CPAP; uses home oxygen Sleep apnea, obstructive Past Surgical History: Procedure Laterality Date ALTEMEIER PROCEDURE N/A 03/30/2022 Procedure: ALTEMEIER PROCEDURE; Surgeon: Jada Vargas MD; [place] [facility] [place]; Service: Colorectal CARDIOVASCULAR STRESS TEST CHOLECYSTECTOMY COLONOSCOPY with biopsies COLONOSCOPY N/A 02/17/2022 Procedure: COLONOSCOPY; Surgeon: Jada Vargas MD; [place] [facility] [place]; Service: Colorectal GALLBLADDER HYSTERECTOMY JOINT REPLACEMENT Left knee ORTHOPEDIC SURGERY r wrist surgery, left ankle, right rotator cuff ROTATOR CUFF REPAIR Right THYROIDECTOMY N/A 07/15/2015 Procedure: TOTAL THYROIDECTOMY; Surgeon: Lopez Alonso MD; Location: [facility] OR; Service: US ECHO TRANSTHORACIC FOLLOWUP LIMITED WRIST SURGERY Right Family History Problem Relation Age of Onset Heart disease Mother Lupus Mother Stroke Mother Arthritis Mother Heart attack Mother Heart disease Father Heart attack Father Hypertension Father Hypertension Sister Hypertension Brother Prostate cancer Brother Colon cancer Brother Hypertension Brother Prostate cancer Brother Colon cancer Brother Hypertension Brother Prostate cancer Brother Stomach cancer Brother Heart attack Maternal Grandmother Heart attack Maternal Grandfather Heart attack Paternal Grandmother Heart attack Paternal Grandfather Breast cancer Neg Hx Social History Tobacco Use Smoking Status Former Packs/day: 1.00 Years: 20.00 Pack years: 20.00 Types: Cigarettes Quit date: 07/10/2013 Years since quittin.9 Smokeless Tobacco Never Additional History Comments: None Allergies: Penicillins Current HOME Medications: Outpatient Medications Marked as Taking for the 06/21/22 encounter (Hospital Encounter): albuterol (PROVENTIL HFA;VENTOLIN HFA) 90 mcg/actuation inhaler, Inhale 2 puffs every 6 (six) hoursas needed for wheezing. aspirin 81 mg chewable tablet, Chew and Swallow 81 mg daily . buPROPion (WELLBUTRIN) 75 MG tablet, Take 1 (one) tablet (75 mg total) by mouth daily . cholecalciferol, vitamin D3, 1,000 unit tablet, Take 1,000 Units by mouth daily. doxepin (SINEQUAN) 75 MG capsule, Take 1 (one) capsule (75 mg total) by mouth nightly as needed forsleep . DULoxetine (CYMBALTA) 60 MG capsule, Take 60 mg by mouth daily. ferrous sulfate 325 (65 FE) MG tablet, Take 325 mg by mouth daily with breakfast. fluticasone propionate (FLONASE) 50 mcg/actuation nasal spray, Instill 2 (two) sprays into each nostril daily . tstwpmqarls-svvnreswk-cnjpbcff (Trelegy Ellipta) 200-62.5-25 mcg DsDv, Inhale 1 (one) Inhalation daily . levothyroxine (SYNTHROID, LEVOTHROID) 175 MCG tablet, Take 1 (one) tablet (175 mcg total) by mouth once daily . lisinopril (PRINIVIL,ZESTRIL) 40 MG tablet, Take 40 mg by mouth daily. metFORMIN (GLUCOPHAGE) 500 MG tablet, Take 500 mg by mouth 2 (two) times a day . omeprazole (PRILOSEC) 40 MG capsule, Take 40 mg by mouth daily . tiZANidine (ZANAFLEX) 4 MG capsule, Take 4 mg by mouth nightly Pt takes 3 pills for a total of 12mg. triheptanoin (Dojolvi) 8.3 kcal/mL Liqd, Take by mouth 4 (four) times a day . Current HOSPITAL Medications: acetaminophen (TYLENOL) tablet 650 mg, 650 mg, Oral, Q4H PRN albuterol (PROVENTIL) 2.5 mg /3 mL (0.083 %) nebulizer solution 0.63 mg, 0.63 mg, Nebulization, Q6HPRN buPROPion (WELLBUTRIN) tablet 75 mg, 75 mg, Oral, BID doxepin (SINEQUAN) capsule 50 mg, 50 mg, Oral, Nightly PRN DULoxetine (CYMBALTA) DR capsule 60 mg, 60 mg, Oral, Daily levothyroxine (SYNTHROID, LEVOTHROID) tablet 175 mcg, 175 mcg, Oral, Daily loperamide (IMODIUM) capsule 2 mg, 2 mg, Oral, 4x Daily PRN naloxone (NARCAN) injection 0.1 mg, 0.1 mg, Intravenous, PRN AND Notify physician, , , Until Discontinued AND naloxone (NARCAN) injection 0.4 mg, 0.4 mg, Intravenous, PRN oxyCODONE (ROXICODONE) immediate release tablet 5 mg, 5 mg, Oral, Q4H PRN pantoprazole (PROTONIX) injection 40 mg, 40 mg, Intravenous, Daily Saline lock IV, , , Continuous AND sodium chloride (PF) (NS) flush 5 mL, 5 mL, Intravenous, PRNAND sodium chloride (PF) (NS) flush 5 mL, 5 mL, Intravenous, Q8H TRACY AND sodium chloride 0.9% (NS), 0-150 mL/hr, Intravenous, PRN sodium chloride 0.9% (NS), 100 mL/hr, Intravenous, Continuous OBJECTIVE: Physical Examination: BP (!) 169/57 Pulse 97 Temp 98.9 F (37.2 C) (Oral) Resp 16 Ht 5' 4 Wt 105.2 kg (232 lb) SpO2 96% BMI 39.82 kg/m General Appearance: Alert, well appearing, no acute distress HEENT: Head- Normocephalic, atraumatic. Eyes: No scleral icterus, normal conjunctive. Ears: Normal appearance, hearing intact. Nares: Normal pink mucosa, no exudate. Throat: Mucus membranes moist, noerythema. Neck: Supple, trachea midline. Cardiovascular: Regular rate and rhythm, no murmur, rub or gallop. Respiratory: Respirations unlabored, Lungs clear to auscultation, no wheezes, crackles or rhonchi. O2 at 1 L/min via nasal cannula Abdomen: Soft, obese, non distended, normoactive bowel sounds, generalized tenderness to palpation,no organomegaly or masses. Extremities: No clubbing, cyanosis or edema. Musculoskeletal: No joint deformity, swelling or tenderness Neurological: Alert and oriented, no focal deficits, grossly normal motor and sensory Skin: Normal color and turgor, no jaundice or rashes. Psych: Normal mood and affect. Laboratory and Additional Data Reviewed: Reviewed 06/23/22 9:40 AM: Laboratory, Radiology, Medications, and Transcriptions Associated attestation - Tyshawn Santos MD - 06/23/2022 12:40 PM EDT I personally interviewed and examined the patient. I reviewed [facility] nurse practitioner consultation report and agree with herdocumented history, physical exam and assessment and plan. 62y.o. 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 documented history, physical exam and assessment and plan. She has diarrhea off and on for the last 6-month and had colonoscopy 2 months ago which was unremarkable she had surgery for prolapse rectum a few months ago. Her hemoglobin dropped from 10.9-8.4 and has bright red blood per rectum. The cause of diarrhea not clear will do sigmoidoscopy as she already had colonoscopy and take biopsies to rule out microcytic colitis. documented in this [id number] Note* CDI Query - Ryan Loo MD - 06/23/2022 8:03 AM EDT Noted documentation of continuous home oxygen. Clinical Indicators: ED: history significant for oxygen dependent COPD 2 L Review of record: Pulmonary office visit 12/2021-Home Oxygen Concentrator with Portability Nasal cannula; 2 LPM; Continuous and/or During Exertion PMH: On home oxygen therapy 2L via NC, PRN with walking, activity Please further specify the patient's respiratory status related to COPD and oxygen dependence. For Example: COPD with chronic respiratory failure COPD without chronic respiratory failure Other (please specify) Unable to determine Thank you, Peace Zaragoza RN, BSN [facility] [phone] After business hours you may contact Za Lopes at [phone] (Weekdays until 10 PM and weekends 8 AM - 10 PM) [id number] Note* CDI Query - Ryan Loo MD - 06/23/2022 7:54 AM EDT Noted documentation of sepsis. Clinical Indicators: PN 06/22: Stool /GI PRC panel negative Will start immodium and protonix IV this am C. Difficile - negative Discontinue all antibiotics H&P: Sepsis with lactic acidosis...Significant leukocytosis above 20,000 ED: does have significant leukocytosis but no obvious sepsis at this time she has no fever no lactic acidosis is noted.. Patient's had serial abdominal examination remained stable. I am uncertain as to the etiology of her diarrhea illness Lab 06/21: lactic acid 0.9, WBC 20.7, neutrophils 88.5 After study, please clarify if sepsis is a current condition during this hospitalization. For Example: Sepsis ruled out Sepsis as evidenced by (please include clinical evidence) Other (please specify) Unable to determine Thank you, Peace Zaragoza RN, BSN [facility] [phone] After business hours you may contact Za Lopes at [phone] (Week until 10pm) [id number] Note* Plan of Care - Mariano Green RN - 06/22/2022 6:04 PM EDT Problem: Actual or potential alteration in health Goal: Absence of healthcare acquired conditions Outcome: Partially Met Goal: Knowledge of Interdisciplinary Plan of Care Outcome: Partially Met Goal: Knowledge of Enviroment Outcome: Partially Met Problem: Actual or potential alteration in health Goal: Absence of healthcare acquired conditions Outcome: Partially Met Goal: Knowledge of Interdisciplinary Plan of Care Outcome: Partially Met Goal: Knowledge of Enviroment Outcome: Partially Met Problem: Pain Goal: Manage acute pain Outcome: Partially Met Goal: Manage chronic pain Outcome: Partially Met Goal: Reduced pain sensation Outcome: Partially Met Goal: Achievement of comfort function goal Outcome: Partially Met Problem: Pressure Ulcer - Risk of Goal: Absence of pressure ulcer Outcome: Partially Met Problem: Plan for Discharge Goal: Knowledge of discharge plan and instructions Outcome: Partially Met [id number] Note* Plan of Care - Olga Russell MD - 06/21/2022 8:22 PM EDT Stool PCR still pending. Will not leave the patient uncovered overnight without antibiotics, will start the patient empirically on ciprofloxacin, ceftriaxone (allergy to penicillins) and p.o. vancomycin, de-escalate antibiotics as indicated when stool PCR finally resulted [id number] Note* Plan of Care - Mariano Green RN - 06/21/2022 7:02 PM EDT Problem: Actual or potential alteration in health Goal: Absence of healthcare acquired conditions Outcome: Partially Met Goal: Knowledge of Interdisciplinary Plan of Care Outcome: Partially Met Goal: Knowledge of Enviroment Outcome: Partially Met Problem: Actual or potential alteration in health Goal: Absence of healthcare acquired conditions Outcome: Partially Met Goal: Knowledge of Interdisciplinary Plan of Care Outcome: Partially Met Goal: Knowledge of Enviroment Outcome: Partially Met Problem: Pain Goal: Manage acute pain Outcome: Partially Met Goal: Manage chronic pain Outcome: Partially Met Goal: Reduced pain sensation Outcome: Partially Met Goal: Achievement of comfort function goal Outcome: Partially Met Problem: Pressure Ulcer - Risk of Goal: Absence of pressure ulcer Outcome: Partially Met Problem: Plan for Discharge Goal: Knowledge of discharge plan and instructions Outcome: Partially Met [id number] Note* Plan of Care - Cheryl Martini RN - 06/21/2022 5:05 PM EDT POC initiated [id number] Emergency department Note* Duke Nath RN - 06/21/2022 4:47 PM EDT Pt had a small black soft BM. Pt cleaned and depends changed [id number] Emergency department Note* Duke Nath RN - 06/21/2022 4:47 PM EDT Pt had a small black soft BM. Pt cleaned and depends changed * Duke Nath RN - 06/21/2022 4:36 PM EDT Report called to the floor * Jaiden Bagley MD - 06/21/2022 11:10 AM EDTAssociated Order(s): Critical Care Images from the original note were not included. [facility] EMERGENCY DEPARTMENT PCP - Jonathan Rutherford CNP Please excuse grammar and misspelling secondary to Dragon dictation use Chief Complaint Patient presents with Rectal Bleeding HPI Chief complaint rectal bleeding This is a 62-year-old female past medical history significant for oxygen dependent COPD 2 L with rectal prolapse surgery few months ago with colonic polyps presents here diarrhea illness for 4 days. Patient states she has been having abdominal pain issues for about 6 months. Patient states that sheis not really been able to eat or drink anything she is drink some water. Patient states that diarrhea has been persistent worse when she tries to eat. Patient states last few episodes she has had some bleeding from her rectum. Patient denies any use of anticoagulation. Patient does complain of nausea and abdominal cramping. Patient denies any ill contact the patient denies any fevers or chills and no ill contacts. Patient denies any vomiting. The patient does complain of generalized weakness body aches and denies any concern for COVID exposure or illness. Patient has not take anything for symptoms. Again diarrhea is been present for 4days with none noted rectal bleeding today with several e pisodes. Patient did take some Pepcid without any relief of symptoms Strict and appropriate PPE was utilized throughout the care of this patient by me and the patient had worn a surgical mask throughout the entire ED evaluation MEDICAL DECISION MAKING This is a 62-year-old female history of COPD recently diagnosed diabetes on metformin for a few months presents here with diarrhea for 4 days. Patient did have prior history of rectal prolapse repairat the end of March 2022 and schedule follow-up with a local GI services in [place]. Patient did have a couple of episodes of rectal bleeding. She had no obvious external hemorrhoids no active bleeding noted. Patient does have evidence of acute kidney injury with hyperkalemia. In the ED she is given IV fluids along with insulin D50 an amp of sodium bicarbonate for hyperkalemia. Patient CT demonstrated no perforation or significant abnormality noted. Stool cultures have been obtained. Patient does have significant leukocytosis but no obvious sepsis at this time she has no fever no lactic acidosis is noted.. Patient's had serial abdominal examination remained stable. I am uncertain as to the etiology of her diarrhea illness. Patient has no recent antibiotic use or exposure. Patient case wasdiscussed with the admission hospitalist who will be admitting this patient for further treatment and reassessment. I did discuss potential antibiotics being initiated in the ED and this is discussedwith the hospitalist will hold off at this time since lactic is normal. With concern for potential early C. difficile empiric antibiotics could exacerbate her underlying symptoms. There is no noted acute surgical abdomen. Hospitalist did evaluate patient in the ED. . Results for orders placed or performed during the hospital encounter of 06/21/22 Chem 7 Result Value Ref Range Sodium 130 (L) 135 - 145 mmol/L Potassium 5.2 (H) 3.5 - 5.1 mmol/L Chloride 97 (L) 98 - 108 mmol/L Bicarbonate 23 21 - 32 mmol/L Anion Gap 15 10 - 20 mmol/L Glucose 124 (H) 65 - 99 mg/dL BUN 48 (H) 8 - 25 mg/dL Creatinine 2.61 (H) 0.60 - 1.20 mg/dL eGFR 20 (L) >=60 mL/min/1.73 m2 BUN/Creatinine Ratio 18.4 10.0 - 20.0 Comprehensive Metabolic Panel Result Value Ref Range Sodium 130 (L) 135 - 145 mmol/L Potassium 5.2 (H) 3.5 - 5.1 mmol/L Chloride 97 (L) 98 - 108 mmol/L Bicarbonate 23 21 - 32 mmol/L Anion Gap 15 10 - 20 mmol/L Glucose 124 (H) 65 - 99 mg/dL BUN 48 (H) 8 - 25 mg/dL Creatinine 2.61 (H) 0.60 - 1.20 mg/dL eGFR 20 (L) >=60 mL/min/1.73 m2 BUN/Creatinine Ratio 18.4 10.0 - 20.0 Total Protein 8.0 6.0 - 8.0 g/dL Albumin 3.2 3.2 - 5.2 g/dL Calcium 9.4 8.4 - 10.2 mg/dL Alkaline Phosphatase 81 40 - 150 U/L AST 712 (H) 0 - 45 U/L Total Bilirubin 0.2 0.0 - 1.3 mg/dL ALT 131 (H) 14 - 65 U/L PT/INR Result Value Ref Range Protime (PT) 14.2 11.8 - 14.3 seconds INR 1.1 0.8 - 1.1 Lipase Result Value Ref Range Lipase 133 73 - 393 U/L Troponin Result Value Ref Range Troponin I 34 <=59 ng/L Troponin I Interpretation Normal Lactic Acid, Plasma Result Value Ref Range Lactic Acid 0.9 0.6 - 2.0 mmol/L CBC Auto Differential Result Value Ref Range WBC 20.70 (H) 4.50 - 11.00 K/mcL RBC 4.41 4.00 - 5.20 M/mcL Hemoglobin 10.9 (L) 12.0 - 16.0 g/dL Hematocrit 36.1 36.0 - 46.0 % MCV 81.9 80.0 - 100.0 fL MCH 24.7 (L) 26.0 - 34.0 pg MCHC 30.2 (L) 31.0 - 37.0 g/dL Platelets 503 (H) 150 - 400 K/mcL RDW - CV 15.8 (H) 11.6 - 14.8 % MPV 9.7 9.4 - 12.4 fL Neutrophils 88.5 % Lymphocytes 5.7 % Monocytes 4.8 % Eosinophils 0.1 % Basophils 0.3 % IG Percent 0.60 % Neutrophils Abs 18.32 (H) 1.70 - 7.00 K/mcL Lymphocytes Abs 1.18 0.90 - 4.00 K/mcL Monocytes Abs 0.99 (H) 0.30 - 0.90 K/mcL Eosinophils Abs 0.03 0.00 - 0.50 K/mcL Basophils Abs 0.06 0.00 - 0.30 K/mcL IG Absolute 0.12 0.00 - 0.30 K/mcL Nucleated RBC 0.0 % Nucleated RBC Abs 0.00 0.00 - 0.00 K/mcL Radiographic Imaging (if any) During ED Visit All Radiographic Imaging (if any) were read by Radiologist and reviewed and viewed by myself I have also reviewed narcotic score prior to giving any narcotic pain medications CT Abdomen Pelvis Without Contrast Preliminary Result 1. There is fluid throughout the colon which may be consistent with rapid transit/diarrhea. 2. Hepatic steatosis. 3. Extensive aortic calcification. [employer] Workstation ID: [id number] XR Chest 1 View Preliminary Result No evident acute process in the chest. [employer]/lab Workstation ID: [id number] Medications Ordered/Given During ED Visit Medications sodium chloride 0.9% (NS) (100 mL/hr Intravenous New Bag 06/21/22 113) sodium chloride (PF) (NS) flush 5 mL (has no administration in time range) And sodium chloride (PF) (NS) flush 5 mL (5 mL Intravenous Not Given 06/21/22 1405) And sodium chloride 0.9% (NS) (has no administration in time range) sodium chloride 0.9% (NS) (100 mL/hr Intravenous Not Given 06/21/22 1405) acetaminophen (TYLENOL) tablet 650 mg (has no administration in time range) sodium chloride 0.9% (NS) bolus 500 mL (0 mL Intravenous Stopped 06/21/22 1135) ondansetron (ZOFRAN) injection 4 mg (4 mg Intravenous Given 06/21/22 1135) morphine syringe 4 mg (4 mg Intravenous Given 06/21/22 1136) insulin regular (HumuLIN R, NovoLIN R) injection 8 Units (8 Units Intravenous Given 06/21/22 1406) dextrose (D10W) 10% bolus 250 mL (250 mL Intravenous New Bag 06/21/22 1407) sodium bicarbonate 1 mEq/mL (8.4 %) injection 50 mEq (50 mEq Intravenous Given 06/21/22 1406) Critical Care Performed by: Jaiden Bagley MD Authorized by: Jaiden Bagley MD Total critical care time: 30 minutes Review of Systems Review of Systems Constitutional: Negative for appetite change, chills and fever. HENT: Negative for ear pain and sore throat. Eyes: Negative for visual disturbance. Respiratory: Positive for shortness of breath. Cardiovascular: Negative for chest pain, palpitations and leg swelling. Gastrointestinal: Positive for abdominal pain, diarrhea and nausea. Negative for constipation and vomiting. Endocrine: Negative for polyuria. Genitourinary: Negative for difficulty urinating, dysuria and frequency. Musculoskeletal: Positive for arthralgias and myalgias. Negative for back pain and neck stiffness. Skin: Negative for color change and rash. Neurological: Positive for weakness. Negative for dizziness and light-headedness. Psychiatric/Behavioral: Negative for confusion, hallucinations and suicidal ideas. The patient is not nervous/anxious. All other systems reviewed and are negative. All systems reviewed negative except as mentioned above. Physical Exam Vital Signs During ED Visit (as charted by nursing) Patient Vitals for the past 24 hrs: BP Temp Temp src Pulse Resp SpO2 06/21/22 1400 (!) 169/69 -- -- 91 18 99 % 06/21/22 1230 (!) 152/74 -- -- 90 18 100 % 06/21/22 1200 (!) 178/86 -- -- 90 15 100 % 06/21/22 1102 (!) 157/90 97.8 F (36.6 C) Axillary 96 16 100 % 06/21/22 1100 (!) 157/90 -- -- (!) 102 12 100 % Physical Exam Constitutional: General: She is not in acute distress. Appearance: She is well-developed. She is obese. She is not diaphoretic. HENT: Head: Normocephalic and atraumatic. Right Ear: External ear normal. Left Ear: External ear normal. Eyes: Pupils: Pupils are equal, round, and reactive to light. Cardiovascular: Rate and Rhythm: Normal rate and regular rhythm. Pulses: Normal pulses. Heart sounds: Normal heart sounds, S1 normal and S2 normal. No murmur heard. Pulmonary: Effort: Pulmonary effort is normal. No respiratory distress. Breath sounds: Normal breath sounds. Abdominal: General: Bowel sounds are normal. There is no distension. Palpations: Abdomen is soft. There is no mass. Tenderness: There is generalized abdominal tenderness. There is no guarding. Negative signs includeMurphy's sign and McBurney's sign. Hernia: No hernia is present. Genitourinary: Comments: No active bleeding noted no external hemorrhoids Musculoskeletal: General: Normal range of motion. Cervical back: Neck supple. Lymphadenopathy: Cervical: No cervical adenopathy. Skin: General: Skin is warm. Capillary Refill: Capillary refill takes less than 2 seconds. Neurological: Mental Status: She is oriented to person, place, and time. She is not disoriented. Cranial Nerves: No cranial nerve deficit. Psychiatric: Speech: Speech normal. Behavior: Behavior normal. Past Medical History Past Medical History: Diagnosis Date Anxiety Arthritis Back pain Bladder problem incontinence Cancer (HCC) thyroid Chronic pain disorder Colitis sigmoid COPD (chronic obstructive pulmonary disease) (HCC) 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HCC) Per pt. - Depression Diabetes (HCC) Diverticulosis Emphysema of lung (HCC) GERD (gastroesophageal reflux disease) Hepatic steatosis History of echocardiogram History of stress test Hypertension Hypothyroidism Kidney disease, chronic, stage I (GFR over 89 ml/min) stage 3 Obesity On home oxygen therapy 2L via NC, PRN with walking, activity Sleep apnea noncompliant with CPAP; uses home oxygen Sleep apnea, obstructive Past Surgical History Past Surgical History: Procedure Laterality Date ALTEMEIER PROCEDURE N/A 03/30/2022 Procedure: ALTEMEIER PROCEDURE; Surgeon: Jada Vargas MD; [place] [facility] [place]; Service: Colorectal CARDIOVASCULAR STRESS TEST CHOLECYSTECTOMY COLONOSCOPY with biopsies COLONOSCOPY N/A 02/17/2022 Procedure: COLONOSCOPY; Surgeon: Jada Vargas MD; [place] [facility] [place]; Service: Colorectal GALLBLADDER HYSTERECTOMY JOINT REPLACEMENT Left knee ORTHOPEDIC SURGERY r wrist surgery, left ankle, right rotator cuff ROTATOR CUFF REPAIR Right THYROIDECTOMY N/A 07/15/2015 Procedure: TOTAL THYROIDECTOMY; Surgeon: Lopez Alonso MD; Location: [facility] OR; Service: US ECHO TRANSTHORACIC FOLLOWUP LIMITED WRIST SURGERY Right Family History Family History Problem Relation Age of Onset Heart disease Mother Lupus Mother Stroke Mother Arthritis Mother Heart attack Mother Heart disease Father Heart attack Father Hypertension Father Hypertension Sister Hypertension Brother Prostate cancer Brother Colon cancer Brother Hypertension Brother Prostate cancer Brother Colon cancer Brother Hypertension Brother Prostate cancer Brother Stomach cancer Brother Heart attack Maternal Grandmother Heart attack Maternal Grandfather Heart attack Paternal Grandmother Heart attack Paternal Grandfather Breast cancer Neg Hx Social History Social History Socioeconomic History Marital status: Occupational History 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 Allergies Allergies Allergen Reactions Penicillins Unknown and Other (See Comments) Was told as a child that she is allergic, but has never taken it to know the reaction. Childhood reaction Was told as a child that she is allergic, but has never taken it to know the reaction. Medications Patient's Medications New Prescriptions No medications on file Previous Medications ALBUTEROL (ACCUNEB) 0.63 MG/3 ML NEBULIZER SOLUTION Take 1 ampule by nebulization every 6 (six) hours as needed for wheezing. ALBUTEROL (PROVENTIL HFA;VENTOLIN HFA) 90 MCG/ACTUATION INHALER Inhale 2 puffs every 6 (six) hours as needed for wheezing. AMLODIPINE (NORVASC) 5 MG TABLET Take 10 mg by mouth daily . ASPIRIN 81 MG CHEWABLE TABLET Chew and Swallow 81 mg daily . BUPROPION (WELLBUTRIN) 75 MG TABLET CHOLECALCIFEROL, VITAMIN D3, 1,000 UNIT TABLET Take 1,000 Units by mouth daily. DOXEPIN (SINEQUAN) 50 MG CAPSULE Take 50 mg by mouth nightly as needed for sleep. DULOXETINE (CYMBALTA) 60 MG CAPSULE Take 60 mg by mouth daily. FERROUS SULFATE 325 (65 FE) MG TABLET Take 325 mg by mouth daily with breakfast. FLUTICASONE PROPIONATE (FLONASE) 50 MCG/ACTUATION NASAL SPRAY Instill 2 (two) sprays into each nostril daily . [id number] (TRELEGY ELLIPTA) 200-62.5-25 MCG DSDV Inhale 1 (one) Inhalation daily . LEVOTHYROXINE (SYNTHROID, LEVOTHROID) 112 MCG TABLET Take 112 mcg by mouth daily LISINOPRIL (PRINIVIL,ZESTRIL) 40 MG TABLET Take 40 mg by mouth daily. METFORMIN (GLUCOPHAGE) 500 MG TABLET Take 500 mg by mouth 2 (two) times a day . OMEPRAZOLE (PRILOSEC) 40 MG CAPSULE Take 40 mg by mouth daily . OXYGEN Inhale 2 L/min as needed Per patient, only used when walking or with activity . TIZANIDINE (ZANAFLEX) 4 MG CAPSULE Take 4 mg by mouth nightly Pt takes 3 pills for a total of 12mg . TRIHEPTANOIN (DOJOLVI) 8.3 KCAL/ML LIQD Take by mouth 4 (four) times a day . Modified Medications No medications on file Discontinued Medications No medications on file Jaiden Bagley MD 06/21/22 1429 * Leandro Montano II, RN - 06/21/2022 10:53 AM EDT Pt to ED with c/c of blood in stool and diarrhea. PT feels weak and nauseous. PT noticed blood in stool last night. PT reports having appointment with PCP tomorrow. * Christal Jon RN - 06/21/2022 10:53 AM EDT Bed: 23 Expected date: 06/21/22 Expected time: 10:40 AM Means of arrival: Ambulance Comments: [place] documented in this [id number] Emergency department Note* Duke Nath RN - 06/21/2022 4:36 PM EDT Report called to the floor [id number] History and physical note* Olga Russell MD - 06/21/2022 2:37 PM EDT [facility] [place] [facility] [facility] Patient Name: Radha Shafer : 1960 MR #: [id number] Admit Date: 06/21/2022 Physicians: Jonathan Rutherford CNP (Family); No ref. provider found (Referring) Radha Shafer is a 62 y.o. female patient of Jonathan Rutherford CNP with history of COPD, chronic kidney disease stage III, hypertension, rectal prolapse s/p surgery at [facility] on March 2022 who presented to the emergency department with 4 days of diarrhea, nausea diffuse abdominal pain. As noted above, symptoms started 4 days ago, watery diarrhea more than 5 episodes per day, associated diffuse abdominal pain and chills, admission to nausea without vomiting, patient denies recent antibioticexposure, no history of C. difficile, history of rectal prolapse. Watery diarrhea Sepsis with lactic acidosis Blood cultures were obtained Significant leukocytosis above 20,000 CT of the abdomen showing fluid throughout the colon may consistent with a rapid diarrhea. Obtain C. Difficile Will titrate antibiotics after obtaining C. difficile result Aggressive IV hydration Zofran Rectal prolpase. S/p surgery March 2022 Chronic anemia Rectal bleeding per report As noted above, patient reports rectal bleeding, rectal exam was performed emergency department, nohemorrhoids, monitor CBC daily, hemoglobin actually at baseline 9.5-10.5 KRISTIN on chronic kidney disease stage III Hyperkalemia secondary to KRISTIN Creatinine baseline around 1.2-1.3 with GFR 40-50 Aggressive IV hydration Check daily CMP Hyponatremia, hypovolemic hyponatremia, aggressive IV hydration Hypertension, hold lisinopril due to KRISTIN, continue amlodipine Hypothyroidism, levothyroxine COPD, albuterol as needed Admitted From: home Medication Reconciliation: Verified Code Status: Full Code Quality Measures DVT Prophylaxis: SCDs Diaz Catheter: absent Select if patient is initially admitted to critical care unit The following Vizient risk variables were noted and present on admission: Sepsis, Hypovolemia, Hyponatremia, Hyperkalemia, and Acidosis Please see assessment and plan for further details. Chief Complaint abdominal pain, diarrhea History of Present Illness Radha Shafer is a 62 y.o. female patient of Jonathan Rutherford CNP with history of COPD, chronic kidney disease stage III, hypertension, rectal prolapse s/p surgery at [facility] on March 2022 who presented to the emergency department with 4 days of diarrhea, nausea diffuse abdominal pain. As noted above, symptoms started 4 days ago, watery diarrhea more than 5 episodes per day, associated diffuse abdominal pain and chills, admission to nausea without vomiting, patient denies recent antibioticexposure, no history of C. difficile, history of rectal prolapse. Past Medical History Past Medical History: Diagnosis Date Anxiety Arthritis Back pain Bladder problem incontinence Cancer (HCC) thyroid Chronic pain disorder Colitis sigmoid COPD (chronic obstructive pulmonary disease) (HCC) 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HCC) Per pt. - Depression Diabetes (HCC) Diverticulosis Emphysema of lung (HCC) GERD (gastroesophageal reflux disease) Hepatic steatosis History of echocardiogram History of stress test Hypertension Hypothyroidism Kidney disease, chronic, stage I (GFR over 89 ml/min) stage 3 Obesity On home oxygen therapy 2L via NC, PRN with walking, activity Sleep apnea noncompliant with CPAP; uses home oxygen Sleep apnea, obstructive Past Surgical History Past Surgical History: Procedure Laterality Date ALTEMEIER PROCEDURE N/A 03/30/2022 Procedure: ALTEMEIER PROCEDURE; Surgeon: Jada Vargas MD; [place] [facility] [place]; Service: Colorectal CARDIOVASCULAR STRESS TEST CHOLECYSTECTOMY COLONOSCOPY with biopsies COLONOSCOPY N/A 02/17/2022 Procedure: COLONOSCOPY; Surgeon: Jada Vargas MD; [place] [facility] [place]; Service: Colorectal GALLBLADDER HYSTERECTOMY JOINT REPLACEMENT Left knee ORTHOPEDIC SURGERY r wrist surgery, left ankle, right rotator cuff ROTATOR CUFF REPAIR Right THYROIDECTOMY N/A 07/15/2015 Procedure: TOTAL THYROIDECTOMY; Surgeon: Lopez Alonso MD; Location: [facility] OR; Service: US ECHO TRANSTHORACIC FOLLOWUP LIMITED WRIST SURGERY Right Family History Family History Problem Relation Age of Onset Heart disease Mother Lupus Mother Stroke Mother Arthritis Mother Heart attack Mother Heart disease Father Heart attack Father Hypertension Father Hypertension Sister Hypertension Brother Prostate cancer Brother Colon cancer Brother Hypertension Brother Prostate cancer Brother Colon cancer Brother Hypertension Brother Prostate cancer Brother Stomach cancer Brother Heart attack Maternal Grandmother Heart attack Maternal Grandfather Heart attack Paternal Grandmother Heart attack Paternal Grandfather Breast cancer Neg Hx Social History Social History Tobacco Use Smoking Status Former Packs/day: 1.00 Years: 20.00 Pack years: 20.00 Types: Cigarettes Quit date: 07/10/2013 Years since quittin.9 Smokeless Tobacco Never Social History Substance and Sexual Activity Alcohol Use No Social History Substance and Sexual Activity Drug Use Yes Frequency: 7.0 times per week Types: Marijuana Comment: currently using daily for pain and depression. Allergy Information I have reviewed the patient's allergies. Penicillins Home Medications Home medications were reviewed. Review Of Systems All systems have been reviewed and are negative except as noted in HPI or below Physical Examination BP (!) 169/69 (BP Location: Left arm, Patient Position: Lying) Pulse 91 Temp 97.8 F (36.6 C) (Axillary) Resp 18 SpO2 99% General Appearance: alert; acute on chronically ill appearing; in mild acute distress HEENT: Head- normocephalic; Eyes- EOMI, sclera anicteric; Ears- hearing intact; Nose- no nasal discharge; Throat- mucous membranes moist Cardiovascular: regular rate and rhythm; normal S1, S2; no murmurs, rubs, clicks or gallops; no peripheral edema Respiratory: lungs clear to auscultation; without wheezes, rales or rhonchi; on room air Abdomen: Diffuse abdominal tenderness, more localized left lower quadrant Neurological: oriented x 3; normal speech; no focal findings or movement disorder noted Musculoskeletal: no significant deformity or tenderness to palpation Skin: normal coloration; no obvious rashes, lesions or skin breakdown Psych: normal mood and affect Laboratory and Additional Data Reviewed Laboratory 06/21/22 2:49 PM Microbiology 06/21/22 2:49 PM Pathology 06/21/22 2:49 PM Radiology 06/21/22 2:49 PM Cardiology 06/21/22 2:49 PM Medications 06/21/22 2:49 PM [id number] History and physical note* Olga Russell MD - 06/21/2022 2:37 PM EDT [facility] [place] [facility] Patient Name: Radha Shafer : 1960 MR #: [id number] Admit Date: 06/21/2022 Physicians: Jonathan Rutherford CNP (Family); No ref. provider found (Referring) Radha Shafer is a 62 y.o. female patient of Jonathan Rutherford CNP with history of COPD, chronic kidney disease stage III, hypertension, rectal prolapse s/p surgery at [facility] on March 2022 who presented to the emergency department with 4 days of diarrhea, nausea diffuse abdominal pain. As noted above, symptoms started 4 days ago, watery diarrhea more than 5 episodes per day, associated diffuse abdominal pain and chills, admission to nausea without vomiting, patient denies recent antibioticexposure, no history of C. difficile, history of rectal prolapse. Watery diarrhea Sepsis with lactic acidosis Blood cultures were obtained Significant leukocytosis above 20,000 CT of the abdomen showing fluid throughout the colon may consistent with a rapid diarrhea. Obtain C. Difficile Will titrate antibiotics after obtaining C. difficile result Aggressive IV hydration Zofran Rectal prolpase. S/p surgery March 2022 Chronic anemia Rectal bleeding per report As noted above, patient reports rectal bleeding, rectal exam was performed emergency department, nohemorrhoids, monitor CBC daily, hemoglobin actually at baseline 9.5-10.5 KRISTIN on chronic kidney disease stage III Hyperkalemia secondary to KRISTIN Creatinine baseline around 1.2-1.3 with GFR 40-50 Aggressive IV hydration Check daily CMP Hyponatremia, hypovolemic hyponatremia, aggressive IV hydration Hypertension, hold lisinopril due to KRISTIN, continue amlodipine Hypothyroidism, levothyroxine COPD, albuterol as needed Admitted From: home Medication Reconciliation: Verified Code Status: Full Code Quality Measures DVT Prophylaxis: SCDs Diaz Catheter: absent Select if patient is initially admitted to critical care unit The following Vizient risk variables were noted and present on admission: Sepsis, Hypovolemia, Hyponatremia, Hyperkalemia, and Acidosis Please see assessment and plan for further details. Chief Complaint abdominal pain, diarrhea History of Present Illness Radha Shafer is a 62 y.o. female patient of Jonathan Rutherford CNP with history of COPD, chronic kidney disease stage III, hypertension, rectal prolapse s/p surgery at [facility] on March 2022 who presented to the emergency department with 4 days of diarrhea, nausea diffuse abdominal pain. As noted above, symptoms started 4 days ago, watery diarrhea more than 5 episodes per day, associated diffuse abdominal pain and chills, admission to nausea without vomiting, patient denies recent antibioticexposure, no history of C. difficile, history of rectal prolapse. Past Medical History Past Medical History: Diagnosis Date Anxiety Arthritis Back pain Bladder problem incontinence Cancer (HCC) thyroid Chronic pain disorder Colitis sigmoid COPD (chronic obstructive pulmonary disease) (HCC) 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HCC) Per pt. - Depression Diabetes (HCC) Diverticulosis Emphysema of lung (HCC) GERD (gastroesophageal reflux disease) Hepatic steatosis History of echocardiogram History of stress test Hypertension Hypothyroidism Kidney disease, chronic, stage I (GFR over 89 ml/min) stage 3 Obesity On home oxygen therapy 2L via [place], PRN with walking, activity Sleep apnea noncompliant with CPAP; uses home oxygen Sleep apnea, obstructive Past Surgical History Past Surgical History: Procedure Laterality Date ALTEMEIER PROCEDURE N/A 03/30/2022 Procedure: ALTEMEIER PROCEDURE; Surgeon: Jada Vargas MD; Location: [facility] [place]; Service: Colorectal CARDIOVASCULAR STRESS TEST CHOLECYSTECTOMY COLONOSCOPY with biopsies COLONOSCOPY N/A 02/17/2022 Procedure: COLONOSCOPY; Surgeon: Jada Vargas MD; [place] [facility] [place]; Service: Colorectal GALLBLADDER HYSTERECTOMY JOINT REPLACEMENT Left knee ORTHOPEDIC SURGERY r wrist surgery, left ankle, right rotator cuff ROTATOR CUFF REPAIR Right THYROIDECTOMY N/A 07/15/2015 Procedure: TOTAL THYROIDECTOMY; Surgeon: Lopez Alonso MD; Location: [facility] OR; Service: US ECHO TRANSTHORACIC FOLLOWUP LIMITED WRIST SURGERY Right Family History Family History Problem Relation Age of Onset Heart disease Mother Lupus Mother Stroke Mother Arthritis Mother Heart attack Mother Heart disease Father Heart attack Father Hypertension Father Hypertension Sister Hypertension Brother Prostate cancer Brother Colon cancer Brother Hypertension Brother Prostate cancer Brother Colon cancer Brother Hypertension Brother Prostate cancer Brother Stomach cancer Brother Heart attack Maternal Grandmother Heart attack Maternal Grandfather Heart attack Paternal Grandmother Heart attack Paternal Grandfather Breast cancer Neg Hx Social History Social History Tobacco Use Smoking Status Former Packs/day: 1.00 Years: 20.00 Pack years: 20.00 Types: Cigarettes Quit date: 07/10/2013 Years since quittin.9 Smokeless Tobacco Never Social History Substance and Sexual Activity Alcohol Use No Social History Substance and Sexual Activity Drug Use Yes Frequency: 7.0 times per week Types: Marijuana Comment: currently using daily for pain and depression. Allergy Information I have reviewed the patient's allergies. Penicillins Home Medications Home medications were reviewed. Review Of Systems All systems have been reviewed and are negative except as noted in HPI or below Physical Examination BP (!) 169/69 (BP Location: Left arm, Patient Position: Lying) Pulse 91 Temp 97.8 F (36.6 C) (Axillary) Resp 18 SpO2 99% General Appearance: alert; acute on chronically ill appearing; in mild acute distress HEENT: Head- normocephalic; Eyes- EOMI, sclera anicteric; Ears- hearing intact; Nose- no nasal discharge; Throat- mucous membranes moist Cardiovascular: regular rate and rhythm; normal S1, S2; no murmurs, rubs, clicks or gallops; no peripheral edema Respiratory: lungs clear to auscultation; without wheezes, rales or rhonchi; on room air Abdomen: Diffuse abdominal tenderness, more localized left lower quadrant Neurological: oriented x 3; normal speech; no focal findings or movement disorder noted Musculoskeletal: no significant deformity or tenderness to palpation Skin: normal coloration; no obvious rashes, lesions or skin breakdown Psych: normal mood and affect Laboratory and Additional Data Reviewed Laboratory 06/21/22 2:49 PM Microbiology 06/21/22 2:49 PM Pathology 06/21/22 2:49 PM Radiology 06/21/22 2:49 PM Cardiology 06/21/22 2:49 PM Medications 06/21/22 2:49 PM documented in this [id number] Physician Emergency department Note* Jaiden Bagley MD - 06/21/2022 11:10 AM EDTAssociated Order(s): Critical Care Images from the original note were not included. [facility] EMERGENCY DEPARTMENT PCP - Jonathan Rutherford CNP Please excuse grammar and misspelling secondary to Dragon dictation use Chief Complaint Patient presents with Rectal Bleeding HPI Chief complaint rectal bleeding This is a 62-year-old female past medical history significant for oxygen dependent COPD 2 L with rectal prolapse surgery few months ago with colonic polyps presents here diarrhea illness for 4 days. Patient states she has been having abdominal pain issues for about 6 months. Patient states that sheis not really been able to eat or drink anything she is drink some water. Patient states that diarrhea has been persistent worse when she tries to eat. Patient states last few episodes she has had some bleeding from her rectum. Patient denies any use of anticoagulation. Patient does complain of nausea and abdominal cramping. Patient denies any ill contact the patient denies any fevers or chills and no ill contacts. Patient denies any vomiting. The patient does complain of generalized weakness body aches and denies any concern for COVID exposure or illness. Patient has not take anything for symptoms. Again diarrhea is been present for 4days with none noted rectal bleeding today with several e pisodes. Patient did take some Pepcid without any relief of symptoms Strict and appropriate PPE was utilized throughout the care of this patient by me and the patient had worn a surgical mask throughout the entire ED evaluation MEDICAL DECISION MAKING This is a 62-year-old female history of COPD recently diagnosed diabetes on metformin for a few months presents here with diarrhea for 4 days. Patient did have prior history of rectal prolapse repairat the end of March 2022 and schedule follow-up with a local GI services in [place]. Patient did have a couple of episodes of rectal bleeding. She had no obvious external hemorrhoids no active bleeding noted. Patient does have evidence of acute kidney injury with hyperkalemia. In the ED she is given IV fluids along with insulin D50 an amp of sodium bicarbonate for hyperkalemia. Patient CT demonstrated no perforation or significant abnormality noted. Stool cultures have been obtained. Patient does have significant leukocytosis but no obvious sepsis at this time she has no fever no lactic acidosis is noted.. Patient's had serial abdominal examination remained stable. I am uncertain as to the etiology of her diarrhea illness. Patient has no recent antibiotic use or exposure. Patient case wasdiscussed with the admission hospitalist who will be admitting this patient for further treatment and reassessment. I did discuss potential antibiotics being initiated in the ED and this is discussedwith the hospitalist will hold off at this time since lactic is normal. With concern for potential early C. difficile empiric antibiotics could exacerbate her underlying symptoms. There is no noted acute surgical abdomen. Hospitalist did evaluate patient in the ED. . Results for orders placed or performed during the hospital encounter of 06/21/22 Chem 7 Result Value Ref Range Sodium 130 (L) 135 - 145 mmol/L Potassium 5.2 (H) 3.5 - 5.1 mmol/L Chloride 97 (L) 98 - 108 mmol/L Bicarbonate 23 21 - 32 mmol/L Anion Gap 15 10 - 20 mmol/L Glucose 124 (H) 65 - 99 mg/dL BUN 48 (H) 8 - 25 mg/dL Creatinine 2.61 (H) 0.60 - 1.20 mg/dL eGFR 20 (L) >=60 mL/min/1.73 m2 BUN/Creatinine Ratio 18.4 10.0 - 20.0 Comprehensive Metabolic Panel Result Value Ref Range Sodium 130 (L) 135 - 145 mmol/L Potassium 5.2 (H) 3.5 - 5.1 mmol/L Chloride 97 (L) 98 - 108 mmol/L Bicarbonate 23 21 - 32 mmol/L Anion Gap 15 10 - 20 mmol/L Glucose 124 (H) 65 - 99 mg/dL BUN 48 (H) 8 - 25 mg/dL Creatinine 2.61 (H) 0.60 - 1.20 mg/dL eGFR 20 (L) >=60 mL/min/1.73 m2 BUN/Creatinine Ratio 18.4 10.0 - 20.0 Total Protein 8.0 6.0 - 8.0 g/dL Albumin 3.2 3.2 - 5.2 g/dL Calcium 9.4 8.4 - 10.2 mg/dL Alkaline Phosphatase 81 40 - 150 U/L AST 712 (H) 0 - 45 U/L Total Bilirubin 0.2 0.0 - 1.3 mg/dL ALT 131 (H) 14 - 65 U/L PT/INR Result Value Ref Range Protime (PT) 14.2 11.8 - 14.3 seconds INR 1.1 0.8 - 1.1 Lipase Result Value Ref Range Lipase 133 73 - 393 U/L Troponin Result Value Ref Range Troponin I 34 <=59 ng/L Troponin I Interpretation Normal Lactic Acid, Plasma Result Value Ref Range Lactic Acid 0.9 0.6 - 2.0 mmol/L CBC Auto Differential Result Value Ref Range WBC 20.70 (H) 4.50 - 11.00 K/mcL RBC 4.41 4.00 - 5.20 M/mcL Hemoglobin 10.9 (L) 12.0 - 16.0 g/dL Hematocrit 36.1 36.0 - 46.0 % MCV 81.9 80.0 - 100.0 fL MCH 24.7 (L) 26.0 - 34.0 pg MCHC 30.2 (L) 31.0 - 37.0 g/dL Platelets 503 (H) 150 - 400 K/mcL RDW - CV 15.8 (H) 11.6 - 14.8 % MPV 9.7 9.4 - 12.4 fL Neutrophils 88.5 % Lymphocytes 5.7 % Monocytes 4.8 % Eosinophils 0.1 % Basophils 0.3 % IG Percent 0.60 % Neutrophils Abs 18.32 (H) 1.70 - 7.00 K/mcL Lymphocytes Abs 1.18 0.90 - 4.00 K/mcL Monocytes Abs 0.99 (H) 0.30 - 0.90 K/mcL Eosinophils Abs 0.03 0.00 - 0.50 K/mcL Basophils Abs 0.06 0.00 - 0.30 K/mcL IG Absolute 0.12 0.00 - 0.30 K/mcL Nucleated RBC 0.0 % Nucleated RBC Abs 0.00 0.00 - 0.00 K/mcL Radiographic Imaging (if any) During ED Visit All Radiographic Imaging (if any) were read by Radiologist and reviewed and viewed by myself I have also reviewed narcotic score prior to giving any narcotic pain medications CT Abdomen Pelvis Without Contrast Preliminary Result 1. There is fluid throughout the colon which may be consistent with rapid transit/diarrhea. 2. Hepatic steatosis. 3. Extensive aortic calcification. [employer] Workstation ID: [id number] XR Chest 1 View Preliminary Result No evident acute process in the chest. [employer]/lab Workstation ID: [id number] Medications Ordered/Given During ED Visit Medications sodium chloride 0.9% (NS) (100 mL/hr Intravenous New Bag 06/21/22 1135) sodium chloride (PF) (NS) flush 5 mL (has no administration in time range) And sodium chloride (PF) (NS) flush 5 mL (5 mL Intravenous Not Given 06/21/22 1405) And sodium chloride 0.9% (NS) (has no administration in time range) sodium chloride 0.9% (NS) (100 mL/hr Intravenous Not Given 06/21/22 1405) acetaminophen (TYLENOL) tablet 650 mg (has no administration in time range) sodium chloride 0.9% (NS) bolus 500 mL (0 mL Intravenous Stopped 06/21/22 113) ondansetron (ZOFRAN) injection 4 mg (4 mg Intravenous Given 06/21/22 113) morphine syringe 4 mg (4 mg Intravenous Given 06/21/22 113) insulin regular (HumuLIN R, NovoLIN R) injection 8 Units (8 Units Intravenous Given 06/21/22 140) dextrose (D10W) 10% bolus 250 mL (250 mL Intravenous New Bag 06/21/22 1407) sodium bicarbonate 1 mEq/mL (8.4 %) injection 50 mEq (50 mEq Intravenous Given 06/21/221405) Critical Care Performed by: Jaiden Bagley MD Authorized by: Jaiden Bagley MD Total critical care time: 30 minutes Review of Systems Review of Systems Constitutional: Negative for appetite change, chills and fever. HENT: Negative for ear pain and sore throat. Eyes: Negative for visual disturbance. Respiratory: Positive for shortness of breath. Cardiovascular: Negative for chest pain, palpitations and leg swelling. Gastrointestinal: Positive for abdominal pain, diarrhea and nausea. Negative for constipation and vomiting. Endocrine: Negative for polyuria. Genitourinary: Negative for difficulty urinating, dysuria and frequency. Musculoskeletal: Positive for arthralgias and myalgias. Negative for back pain and neck stiffness. Skin: Negative for color change and rash. Neurological: Positive for weakness. Negative for dizziness and light-headedness. Psychiatric/Behavioral: Negative for confusion, hallucinations and suicidal ideas. The patient is not nervous/anxious. All other systems reviewed and are negative. All systems reviewed negative except as mentioned above. Physical Exam Vital Signs During ED Visit (as charted by nursing) Patient Vitals for the past 24 hrs: BP Temp Temp src Pulse Resp SpO2 06/21/22 1400 (!) 169/69 -- -- 91 18 99 % 06/21/22 1230 (!) 152/74 -- -- 90 18 100 % 06/21/22 1200 (!) 178/86 -- -- 90 15 100 % 06/21/22 1102 (!) 157/90 97.8 F (36.6 C) Axillary 96 16 100 % 06/21/22 1100 (!) 157/90 -- -- (!) 102 12 100 % Physical Exam Constitutional: General: She is not in acute distress. Appearance: She is well-developed. She is obese. She is not diaphoretic. HENT: Head: Normocephalic and atraumatic. Right Ear: External ear normal. Left Ear: External ear normal. Eyes: Pupils: Pupils are equal, round, and reactive to light. Cardiovascular: Rate and Rhythm: Normal rate and regular rhythm. Pulses: Normal pulses. Heart sounds: Normal heart sounds, S1 normal and S2 normal. No murmur heard. Pulmonary: Effort: Pulmonary effort is normal. No respiratory distress. Breath sounds: Normal breath sounds. Abdominal: General: Bowel sounds are normal. There is no distension. Palpations: Abdomen is soft. There is no mass. Tenderness: There is generalized abdominal tenderness. There is no guarding. Negative signs includeMurphy's sign and McBurney's sign. Hernia: No hernia is present. Genitourinary: Comments: No active bleeding noted no external hemorrhoids Musculoskeletal: General: Normal range of motion. Cervical back: Neck supple. Lymphadenopathy: Cervical: No cervical adenopathy. Skin: General: Skin is warm. Capillary Refill: Capillary refill takes less than 2 seconds. Neurological: Mental Status: She is oriented to person, place, and time. She is not disoriented. Cranial Nerves: No cranial nerve deficit. Psychiatric: Speech: Speech normal. Behavior: Behavior normal. Past Medical History Past Medical History: Diagnosis Date Anxiety Arthritis Back pain Bladder problem incontinence Cancer (HCC) thyroid Chronic pain disorder Colitis sigmoid COPD (chronic obstructive pulmonary disease) (HCC) 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HCC) Per pt. - Depression Diabetes (HCC) Diverticulosis Emphysema of lung (HCC) GERD (gastroesophageal reflux disease) Hepatic steatosis History of echocardiogram History of stress test Hypertension Hypothyroidism Kidney disease, chronic, stage I (GFR over 89 ml/min) stage 3 Obesity On home oxygen therapy 2L via NC, PRN with walking, activity Sleep apnea noncompliant with CPAP; uses home oxygen Sleep apnea, obstructive Past Surgical History Past Surgical History: Procedure Laterality Date ALTEMEIER PROCEDURE N/A 03/30/2022 Procedure: ALTEMEIER PROCEDURE; Surgeon: Jada Vargas MD; [place] [facility] [place]; Service: Colorectal CARDIOVASCULAR STRESS TEST CHOLECYSTECTOMY COLONOSCOPY with biopsies COLONOSCOPY N/A 02/17/2022 Procedure: COLONOSCOPY; Surgeon: Jada Vargas MD; [place] [facility] [place]; Service: Colorectal GALLBLADDER HYSTERECTOMY JOINT REPLACEMENT Left knee ORTHOPEDIC SURGERY r wrist surgery, left ankle, right rotator cuff ROTATOR CUFF REPAIR Right THYROIDECTOMY N/A 07/15/2015 Procedure: TOTAL THYROIDECTOMY; Surgeon: Lopez Alonso MD; Location: [facility] OR; Service: US ECHO TRANSTHORACIC FOLLOWUP LIMITED WRIST SURGERY Right Family History Family History Problem Relation Age of Onset Heart disease Mother Lupus Mother Stroke Mother Arthritis Mother Heart attack Mother Heart disease Father Heart attack Father Hypertension Father Hypertension Sister Hypertension Brother Prostate cancer Brother Colon cancer Brother Hypertension Brother Prostate cancer Brother Colon cancer Brother Hypertension Brother Prostate cancer Brother Stomach cancer Brother Heart attack Maternal Grandmother Heart attack Maternal Grandfather Heart attack Paternal Grandmother Heart attack Paternal Grandfather Breast cancer Neg Hx Social History Social History Socioeconomic History Marital status: Occupational History Occupation: [employer] 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 Allergies Allergies Allergen Reactions Penicillins Unknown and Other (See Comments) Was told as a child that she is allergic, but has never taken it to know the reaction. Childhood reaction Was told as a child that she is allergic, but has never taken it to know the reaction. Medications Patient's Medications New Prescriptions No medications on file Previous Medications ALBUTEROL (ACCUNEB) 0.63 MG/3 ML NEBULIZER SOLUTION Take 1 ampule by nebulization every 6 (six) hours as needed for wheezing. ALBUTEROL (PROVENTIL HFA;VENTOLIN HFA) 90 MCG/ACTUATION INHALER Inhale 2 puffs every 6 (six) hours as needed for wheezing. AMLODIPINE (NORVASC) 5 MG TABLET Take 10 mg by mouth daily . ASPIRIN 81 MG CHEWABLE TABLET Chew and Swallow 81 mg daily . BUPROPION (WELLBUTRIN) 75 MG TABLET CHOLECALCIFEROL, VITAMIN D3, 1,000 UNIT TABLET Take 1,000 Units by mouth daily. DOXEPIN (SINEQUAN) 50 MG CAPSULE Take 50 mg by mouth nightly as needed for sleep. DULOXETINE (CYMBALTA) 60 MG CAPSULE Take 60 mg by mouth daily. FERROUS SULFATE 325 (65 FE) MG TABLET Take 325 mg by mouth daily with breakfast. FLUTICASONE PROPIONATE (FLONASE) 50 MCG/ACTUATION NASAL SPRAY Instill 2 (two) sprays into each nostril daily . DPOMACCQJNM-QIURXEYOY-SPSBDMDO (TRELEGY ELLIPTA) 200-62.5-25 MCG DSDV Inhale 1 (one) Inhalation daily . LEVOTHYROXINE (SYNTHROID, LEVOTHROID) 112 MCG TABLET Take 112 mcg by mouth daily LISINOPRIL (PRINIVIL,ZESTRIL) 40 MG TABLET Take 40 mg by mouth daily. METFORMIN (GLUCOPHAGE) 500 MG TABLET Take 500 mg by mouth 2 (two) times a day . OMEPRAZOLE (PRILOSEC) 40 MG CAPSULE Take 40 mg by mouth daily . OXYGEN Inhale 2 L/min as needed Per patient, only used when walking or with activity . TIZANIDINE (ZANAFLEX) 4 MG CAPSULE Take 4 mg by mouth nightly Pt takes 3 pills for a total of 12mg . TRIHEPTANOIN (DOJOLVI) 8.3 KCAL/ML LIQD Take by mouth 4 (four) times a day . Modified Medications No medications on file Discontinued Medications No medications on file Jaiden Bagley MD 06/21/22 [id number] [facility] Work Phone: [phone] Emergency department Triage note* Leandro Montano II, RN - 06/21/2022 10:53 AM EDT Pt to ED with c/c of blood in stool and diarrhea. PT feels weak and nauseous. PT noticed blood in stool last night. PT reports having appointment with PCP tomorrow. [id number] Emergency department Note* Christal Jon RN - 06/21/2022 10:53 AM EDT Bed: 23 Expected date: 06/21/22 Expected time: 10:40 AM Means of arrival: Ambulance Comments: [place] [id number] Evaluation note* Subjective & Objective - Serina Meyers MD - 04/04/2022 8:37 AM EDT Ms. Shafer is sitting up this morning in bed and just finished her breakfast. She has some musculoskeletal soreness from getting out of bed so many times yesterday but otherwise denies having pain. She is tolerating her diet without nausea or emesis; she is having more solid BM. She had the diaz removed at midnight and is voiding without issue. She would like to go home today. Vitals: 04/04/22 0400 04/04/22 0500 04/04/22 0600 04/04/22 0741 BP: BP Location: Patient Position: Pulse: 84 75 87 Resp: (!) 19 16 (!) 19 Temp: 98.6 F (37 C) TempSrc: Oral SpO2: 93% 95% 99% Weight: Physical Exam: Gen: alert and oriented, no acute distress HEENT: moist mucous membranes, EOMI, on nasal cannula O2 Neck: supple, trachea midline CV: RRR, palpable pulses bilaterally Resp: Comfortable on nasal cannula, equal chest rise Abd: Obese, soft, non tender abdomen, non distended Extremities: no gross deformities, moves all extremities Neuro: GCS15, CN2-12 grossly intact, no focal deficits Psych: calm, cooperative, follows commands, normal affect [id number] History of Present illness Narrative* Serina Meyers MD - 04/04/2022 8:37 AM EDT Colon & Rectal Surgery Progress Note: Assessment/Plan: * Rectal prolapse Assessment & Plan A: 61 yo F w/ hx CPT2 deficiency, CKD IV, COPD on home O2, HTN, FELISA, morbid obesity, and rectal prolapse here for elective repair POD 5 from Altemeier procedure with Dr. Vargas with urinary retention resolved P: -admit to SDU post op -UA normal -urology consult-appreciate recs; f/u outpt -home O2 -PRN pain medications -regular low fiber diet -heparin DVT ppx -home meds -daily labs -PT/OT -medicine consult -PRNs for BP -DC flomax -DC today Subjective: Ms. Shafer is sitting up this morning in bed and just finished her breakfast. She has some musculoskeletal soreness from getting out of bed so many times yesterday but otherwise denies having pain. She is tolerating her diet without nausea or emesis; she is having more solid BM. She had the diaz removed at midnight and is voiding without issue. She would like to go home today. Vitals: 04/04/22 0400 04/04/22 0500 04/04/22 0600 04/04/22 0741 BP: BP Location: Patient Position: Pulse: 84 75 87 Resp: (!) 19 16 (!) 19 Temp: 98.6 F (37 C) TempSrc: Oral SpO2: 93% 95% 99% Weight: Physical Exam: Gen: alert and oriented, no acute distress HEENT: moist mucous membranes, EOMI, on nasal cannula O2 Neck: supple, trachea midline CV: RRR, palpable pulses bilaterally Resp: Comfortable on nasal cannula, equal chest rise Abd: Obese, soft, non tender abdomen, non distended Extremities: no gross deformities, moves all extremities Neuro: GCS15, CN2-12 grossly intact, no focal deficits Psych: calm, cooperative, follows commands, normal affect Hospital Medications: acetaminophen 1,300 mg Oral Q8H TRACY amLODIPine 10 mg Oral Daily aspirin 81 mg Oral Daily budesonide-formoteroL 2 puff Inhalation BID buPROPion 75 mg Oral Daily cholecalciferol (vitamin D3) 1,000 Units Oral Daily DULoxetine 60 mg Oral Daily gabapentin 100 mg Oral TID heparin (porcine) 5,000 Units Subcutaneous Q8H TRACY lispro insulin 0-15 Units Subcutaneous at bedtime insulin lispro 0-30 Units Subcutaneous TID AC levothyroxine 112 mcg Oral Daily lisinopriL 40 mg Oral Daily pantoprazole 40 mg Oral Daily sodium chloride (PF) 5 mL Intravenous Q8H TRACY tamsulosin 0.4 mg Oral After evening meal tiotropium bromide 2 puff Inhalation Daily triheptanoin 18 mL Oral 4x daily Labs Lab Results Component Value Date WBC 6.14 04/04/2022 WBC 8.5 11/28/2018 HGB 9.9 (L) 04/04/2022 HGB 10.8 (L) 11/28/2018 HCT 32.8 (L) 04/04/2022 HCT 32.8 (L) 11/28/2018 PLT 267 04/04/2022 PLT 274 11/28/2018 Lab Results Component Value Date NA 136 04/04/2022 K 4.3 04/04/2022 CALCIUM 9.1 04/04/2022 CL 99 04/04/2022 BICARB 28 04/04/2022 BUN 10 04/04/2022 BUN 7 (L) 12/01/2018 CREATININE 1.23 (H) 04/04/2022 CREATININE 1.28 (H) 12/01/2018 Lab Results Component Value Date PROTIME 12.6 03/14/2022 PTT 33 03/30/2022 INR 1.0 03/14/2022 INR 0.99 06/20/2018 Lab Results Component Value Date GLUCOSE 101 (H) 04/04/2022 Lab Results Component Value Date ALBUMIN 3.4 03/14/2022 Intake/Output I/O last 3 completed shifts: In: 150 [P.O.:150] Out: 2750 [Urine:2750] No intake/output data recorded. Serina Meyers MD, PGY6 Colorectal Fellow [id number] 04/04/2022 Associated attestation - Jada Vargas MD - 04/04/2022 8:44 AM EDT The pateint was seen and examined by me. Full note per resident. I personally reviewed the following: Laboratory 04/04/22 8:44 AM I agree with the following plan: Ok for dc. Fu in 2-3 weeks. Jada Vargas MD * Kings Allen MD - 04/03/2022 2:41 PM EDT [facility] Ruddy -progress note: Patient Name: Radha Shafer MR #: [id number] ASSESSMENT / PLAN: Radha Shafer is a 61 y.o. (status post ADAM-BSO) female with the following active urological problem list following Altemeier procedure on 03/30/2022 for prolapsing rectum and plan 1. Urinary retention - This is likely associated with medication induced inhibition of detrusor contractility. She currently has an indwelling Diaz catheter. I believe that we could likely proceed with voiding trial today supported by straight catheterizations. 2. Stress urinary incontinence - At baseline, prior to recent hospitalization for rectal surgery, patient reports worsening stressurinary incontinence requiring 2-3 diapers daily. On physical exam, she has POP Q2 cystocele as well. Patient is interested in intervention, and thus I advised for outpatient follow-up when she recovers from her rectal surgery. 3. POP Q2 cystocele - I do not believe her cystocele is contributing to her urinary retention. Patient is not sexually active and denies any dyspareunia. DISPOSITION & RECOMMENDATIONS: Recommended Plan of Care: Voiding trial today. Follow-up: Outpatient follow-up with me to discuss potential correction of worsening stress urinaryincontinence and POP Q2 cystocele Review of Systems: The following system(s) were reviewed: CV:No chest pain. No ankle swelling Resp:No dyspnea. No wheezing Neuro:No headache. Physical Examination: BP (!) 180/86 Pulse 86 Temp 97.7 F (36.5 C) (Axillary) Resp 17 Wt 110.5 kg (243 lb 9.7 oz) SpO2 99% BMI 41.82 kg/m GENERAL: Well appearing. No acute distress. EYES: PERRLA, EOMI EARS, NOSE, MOUTH, THROAT: mucous memebranes moist, trachea midline ABDOMEN: Soft, nondistended, nontender. BACK: No CVA tenderness. : No vaginal introitus lesions or or discharges. POP Q [address] catheter in place. MUSCULOSKELETAL: normal extremity ROM with no edema LYMPH: No cervical or supraclavicular lymphadenopathy NEURO: Normal gait, CN II-XII grossly intact PSYCHATRIC: A & O x3, mood and affect appropriate SKIN: No rashes, ulcers, or lesions visible Intake/Output last 3 shifts: I/O last 3 completed shifts: In: 150 [P.O.:150] Out: 2800 [Urine:2800] Results/Medications Reviewed 04/03/22 2:43 PM: Laboratory, Microbiology, and Radiology Labs: Results from last 7 days Lab Units 04/03/22 0554 WBC K/mcL 7.32 HGB g/dL 9.3* HCT % 30.9* CREATININE mg/dL 1.14 POTASSIUM mmol/L 4.7 Urinalysis: Results from last 7 days Lab Units 04/02/22 1230 COLOR, UR Yellow CLARITY, UR Clear SPEC GRAV 1.010 PH, UR 6.0 GLUCOSE, UR mg/dL Negative KETONES, UR mg/dL Negative BILIRUBIN, UR Negative UROBILINOGEN, UR mg/dL <2.0 BLOOD, UR Moderate* NITRITE, UR Negative LEUK IAN, UR Trace* MUCUS, UR /lpf Rare WBC, UR /hpf 4 BACTERIA, UR /hpf Rare* DATA: IMAGING: I personally reviewed the patient's CT scan images from 12/29/2021. I discussed the results in the office today with the patient. We went over the pertinent levels of the scan and I interpreted the findings for the patient. The patient verbalized understanding of my interpretation. Findings are as follows: 1. No obstructive uropathy. Multifocal right renal scarring present without overt masses or stones. 2. Bladder and ureters appear unremarkable. 3. Uterus is surgically absent. Assessmen Kings Allen MD [facility] Office: [phone] * Serina Meyers MD - 04/03/2022 8:03 AM EDT Colon & Rectal Surgery Progress Note: Assessment/Plan: * Rectal prolapse Assessment & Plan A: 61 yo F w/ hx CPT2 deficiency, CKD IV, COPD on home O2, HTN, FELISA, morbid obesity, and rectal prolapse here for elective repair POD 4 from [place] procedure with Dr. Vargas with urinary retention now P: -admit to SDU post op -UA normal -urology consult-appreciate recs; will try to DC diaz tomorrow morning -home O2 -PRN pain medications -regular low fiber diet -heparin DVT ppx -home meds -daily labs -PT/OT -mIVF DC -medicine consult -PRNs for BP -diaz, continue flomax -plan DC tomorrow *PLAN to DC diaz at midnight tonight for voiding trial prior to DC home tomorrow Subjective: Ms. Shafer is eating breakfast this morning; she reports her stool consistency has thickened and her issues with incontinence are already improving. She is happy urology saw her and is looking forward to following up with Dr. Allen. She has minimal pain and isn't taking any medications for it; sheis tolerating her diet without nausea or emesis. She doesn't have a ride home until tomorrow. Foleyremains in place. Vitals: 04/03/22 0400 04/03/22 0500 04/03/22 0600 04/03/22 0736 BP: (!) 179/91 (!) 183/87 (!) 161/89 Pulse: 89 88 81 Resp: 17 (!) 20 (!) 19 Temp: 98.4 F (36.9 C) TempSrc: Oral SpO2: 96% 96% 96% Weight: Physical Exam: Gen: alert and oriented, no acute distress HEENT: moist mucous membranes, EOMI, on nasal cannula O2 Neck: supple, trachea midline CV: RRR, palpable pulses bilaterally Resp: Comfortable on nasal cannula, equal chest rise Abd: Obese, soft, non tender abdomen, non distended : yellow urine in diaz bag Extremities: no gross deformities, moves all extremities Neuro: GCS15, CN2-12 grossly intact, no focal deficits Psych: calm, cooperative, follows commands, normal affect Hospital Medications: acetaminophen 1,300 mg Oral Q8H TRACY amLODIPine 10 mg Oral Daily aspirin 81 mg Oral Daily budesonide-formoteroL 2 puff Inhalation BID buPROPion 75 mg Oral Daily cholecalciferol (vitamin D3) 1,000 Units Oral Daily DULoxetine 60 mg Oral Daily gabapentin 100 mg Oral TID heparin (porcine) 5,000 Units Subcutaneous Q8H TRACY lispro insulin 0-15 Units Subcutaneous at bedtime insulin lispro 0-30 Units Subcutaneous TID AC levothyroxine 112 mcg Oral Daily lisinopriL 40 mg Oral Daily pantoprazole 40 mg Oral Daily sodium chloride (PF) 5 mL Intravenous Q8H TRACY tamsulosin 0.4 mg Oral After evening meal tiotropium bromide 2 puff Inhalation Daily triheptanoin 18 mL Oral 4x daily Labs Lab Results Component Value Date WBC 7.32 04/03/2022 WBC 8.5 11/28/2018 HGB 9.3 (L) 04/03/2022 HGB 10.8 (L) 11/28/2018 HCT 30.9 (L) 04/03/2022 HCT 32.8 (L) 11/28/2018 PLT 286 04/03/2022 PLT 274 11/28/2018 Lab Results Component Value Date NA 137 04/03/2022 K 4.7 04/03/2022 CALCIUM 9.1 04/03/2022 CL 101 04/03/2022 BICARB 26 04/03/2022 BUN 10 04/03/2022 BUN 7 (L) 12/01/2018 CREATININE 1.14 04/03/2022 CREATININE 1.28 (H) 12/01/2018 Lab Results Component Value Date PROTIME 12.6 03/14/2022 PTT 33 03/30/2022 INR 1.0 03/14/2022 INR 0.99 06/20/2018 Lab Results Component Value Date GLUCOSE 101 (H) 04/03/2022 Lab Results Component Value Date ALBUMIN 3.4 03/14/2022 Intake/Output I/O last 3 completed shifts: In: 150 [P.O.:150] Out: 2800 [Urine:2800] No intake/output data recorded. Serina Meyers MD, PGY6 Colorectal Fellow [id number] 04/03/2022 Associated attestation - Jada Vargas MD - 04/03/2022 8:55 AM EDT The pateint was seen and examined by me. Full note per resident. I personally reviewed the following: Laboratory 04/03/22 8:54 AM I agree with the following plan: Voiding trial before dc tomorrow Low fiber diet Jada Vargas MD * Grant Archibald, DO - 04/03/2022 7:50 AM EDT [facility] [place] Assessment and Plan Radha Sahfer is a 61 y.o. female patient of Jonathan Rutherford CNP with history of CPT2 deficiency, COPD, CKD, type 2 diabetes, hypothyroidism, HTN, FELISA presented on 03/30/2022 with rectal prolapse. [facility] [place] by Jada Vargas,* for management of chronic medical issues. Rectal prolapse S/P Altemeier procedure by Dr. Vargas Pain management, diet advancement, and abx per primary service Multiple bowel movements overnight CPT2 deficiency Musculoskeletal chest pain Had a flare of muscle weakness after surgery Non-formulary request form entered for Doljolvi, continue as prescribed Bout of chest discomfort 03/31 afternoon, troponins and EKG not concerning for ACS; suspect MSK pain, which is now resolved Encourage ambulation where possible COPD Chronic hypoxic respiratory failure On Trelegy at home, normally uses 2L NC at home as well Symbicort and Spiriva while inpatient PRN breathing treatments Titrate O2 sat for 88-92%, at baseline O2 requirement this morning Type 2 diabetes On Metformin outpatient, held while inpatient Continue SSI, will adjust as needed CKD Stage III Baseline Cr is between 1.5-1.8 Cr normalized Primary hypertension Continue Lisinopril, Norvasc Elevated, expected in setting of recent stress from surgery Advise PCP follow-up for further BP med titration Hypothyroidism Continue Synthroid Anxiety and depression Continue Cymbalta and Wellbutrin FELISA CPAP nightly while inpatient No barriers to discharge from my perspective, continue home medications at prescribed doses. [facility] will sign off, please call with questions. Code Status: Full Code Quality Measures DVT Prophylaxis: per primary Diaz Catheter: placed for post-op urine retention, management per primary Subjective Seen at bedside. She has no acute complaints today. Discussed PCP follow up for BP titration Review of Systems All systems have been reviewed and are negative except as noted in HPI or below Objective BP (!) 161/89 Pulse 81 Temp 98.4 F (36.9 C) (Oral) Resp (!) 19 Wt 110.5 kg (243 lb 9.7 oz) SpO2 96% BMI 41.82 kg/m Physical Examination General Appearance: alert; well appearing; in no acute distress HEENT: Head- normocephalic; Eyes- EOMI, sclera anicteric; Ears- hearing intact; Nose- no nasal discharge; Throat- mucous membranes moist Cardiovascular: regular rate and rhythm; normal S1, S2; no murmurs, rubs, clicks or gallops; no peripheral edema Respiratory: lungs clear to auscultation; without wheezes, rales or rhonchi; on nasal cannula Abdomen: soft, non-tender, non-distended; positive bowel sounds Neurological: oriented x 3; normal speech; no focal findings or movement disorder noted Musculoskeletal: no significant deformity or tenderness to palpation Skin: normal coloration; no obvious rashes, lesions or skin breakdown Psych: normal mood and affect Results/Medications Reviewed 04/03/2022 7:50 AM Laboratory, Microbiology, Radiology, Cardiology, Medications, and Transcriptions * Serina Meyers MD - 04/02/2022 8:43 AM EDT Colon & Rectal Surgery Progress Note: Assessment/Plan: * Rectal prolapse Assessment & Plan A: 61 yo F w/ hx CPT2 deficiency, CKD IV, COPD on home O2, HTN, FELISA, morbid obesity, and rectal prolapse here for elective repair POD 3 from [place] procedure with Dr. Vargas with urinary retention now P: -admit to SDU post op -UA -urology consult -home O2 -PRN pain medications -CLD until RBOF -heparin DVT ppx -home meds -daily labs -PT/OT -mIVF -medicine consult -PRNs for BP -diaz , continue flomax Subjective: Ms. Shafer is up in the chair this morning; she had a diaz reinserted. She is having bowel movements that are loose; she is tolerating a diet without nausea or emesis. She has mild abdominal pain. Her BP has been intermittently elevated. Vitals: 04/02/22 0400 04/02/22 0700 04/02/22 0746 04/02/22 0800 BP: (!) 180/88 (!) 151/60 (!) 157/69 BP Location: Left arm Left arm Patient Position: Lying Lying Pulse: 92 81 81 Resp: 18 (!) 24 (!) 20 Temp: 98.6 F (37 C) TempSrc: Oral SpO2: 94% Weight: Physical Exam: Gen: alert and oriented, no acute distress HEENT: moist mucous membranes, EOMI, on nasal cannula O2 Neck: supple, trachea midline CV: RRR, palpable pulses bilaterally Resp: Comfortable on nasal cannula, equal chest rise Abd: Obese, soft, non tender abdomen, non distended Extremities: no gross deformities, moves all extremities Neuro: GCS15, CN2-12 grossly intact, no focal deficits Psych: calm, cooperative, follows commands, normal affect Hospital Medications: acetaminophen 1,300 mg Oral Q8H TRACY amLODIPine 10 mg Oral Daily aspirin 81 mg Oral Daily budesonide-formoteroL 2 puff Inhalation BID buPROPion 75 mg Oral Daily cholecalciferol (vitamin D3) 1,000 Units Oral Daily DULoxetine 60 mg Oral Daily gabapentin 100 mg Oral TID heparin (porcine) 5,000 Units Subcutaneous Q8H TRACY lispro insulin 0-15 Units Subcutaneous at bedtime insulin lispro 0-30 Units Subcutaneous TID AC levothyroxine 112 mcg Oral Daily lisinopriL 40 mg Oral Daily pantoprazole 40 mg Oral Daily sodium chloride (PF) 5 mL Intravenous Q8H TRACY tamsulosin 0.4 mg Oral After evening meal tiotropium bromide 2 puff Inhalation Daily triheptanoin 18 mL Oral 4x daily Labs Lab Results Component Value Date WBC 7.21 04/02/2022 WBC 8.5 11/28/2018 HGB 9.4 (L) 04/02/2022 HGB 10.8 (L) 11/28/2018 HCT 31.9 (L) 04/02/2022 HCT 32.8 (L) 11/28/2018 PLT 280 04/02/2022 PLT 274 11/28/2018 Lab Results Component Value Date NA 136 04/02/2022 K 5.0 04/02/2022 CALCIUM 8.6 04/02/2022 CL 101 04/02/2022 BICARB 24 04/02/2022 BUN 11 04/02/2022 BUN 7 (L) 12/01/2018 CREATININE 1.12 04/02/2022 CREATININE 1.28 (H) 12/01/2018 Lab Results Component Value Date PROTIME 12.6 03/14/2022 PTT 33 03/30/2022 INR 1.0 03/14/2022 INR 0.99 06/20/2018 Lab Results Component Value Date GLUCOSE 95 04/02/2022 Lab Results Component Value Date ALBUMIN 3.4 03/14/2022 Intake/Output I/O last 3 completed shifts: In: 2416.3 [I.V.:2416.3] Out: 2950 [Urine:2950] No intake/output data recorded. Serina Meyers MD, PGY6 Colorectal Fellow [phone] 04/02/2022 Associated attestation - Jada Vargas MD - 04/02/2022 9:30 AM EDT The pateint was seen and examined by me. Full note per resident. I personally reviewed the following: Laboratory 04/02/22 9:30 AM I agree with the following plan: Consult urology D/w [facility] any unresolved medical issues before dc Jada Vargas MD * Grant Hollis Cristela, DO - 04/02/2022 8:37 AM EDT [facility] [place]GRESS [place] Assessment and Plan Radha Shafer is a 61 y.o. female patient of Jonathan Rutherford CNP with history of CPT2 deficiency, COPD, CKD, type 2 diabetes, hypothyroidism, HTN, FELISA presented on 03/30/2022 with rectal prolapse. [facility] [place] by Jada Vargas,* for management of chronic medical issues. Rectal prolapse S/P Altemeier procedure by Dr. Vargas Pain management, diet advancement, and abx per primary service Multiple bowel movements overnight CPT2 deficiency Musculoskeletal chest pain Had a flare of muscle weakness after surgery Non-formulary request form entered for Doljolvi, continue as prescribed Bout of chest discomfort 03/31 afternoon, troponins and EKG not concerning for ACS; suspect MSK pain, which is now resolved Encourage ambulation where possible COPD Chronic hypoxic respiratory failure On Trelegy at home, normally uses 2L NC at home as well Symbicort and Spiriva while inpatient PRN breathing treatments Titrate O2 sat for 88-92%, at baseline O2 requirement this morning Type 2 diabetes On Metformin outpatient, held while inpatient Continue SSI, will adjust as needed CKD Stage III Baseline Cr is between 1.5-1.8 Cr 1.97 today Monitor daily Primary hypertension Continue Lisinopril, Norvasc Elevated, expected in setting of recent stress from surgery Hypothyroidism Continue Synthroid Anxiety and depression Continue Cymbalta and Wellbutrin FELISA CPAP nightly while inpatient Code Status: Full Code Quality Measures DVT Prophylaxis: per primary Diaz Catheter: placed for post-op urine retention, management per primary Subjective Seen at bedside. She has no acute complaints today. Chest discomfort has resolved. Had multiple BMsthroughout the day and night. Review of Systems All systems have been reviewed and are negative except as noted in HPI or below Objective BP (!) 157/69 (BP Location: Left arm, Patient Position: Lying) Pulse 81 Temp 98.6 F (37 C) (Oral) Resp (!) 20 Wt 109.3 kg (240 lb 15.4 oz) SpO2 94% BMI 41.36 kg/m Physical Examination General Appearance: alert; well appearing; in no acute distress HEENT: Head- normocephalic; Eyes- EOMI, sclera anicteric; Ears- hearing intact; Nose- no nasal discharge; Throat- mucous membranes moist Cardiovascular: regular rate and rhythm; normal S1, S2; no murmurs, rubs, clicks or gallops; no peripheral edema Respiratory: lungs clear to auscultation; without wheezes, rales or rhonchi; on nasal cannula Abdomen: soft, non-tender, non-distended; positive bowel sounds Neurological: oriented x 3; normal speech; no focal findings or movement disorder noted Musculoskeletal: no significant deformity or tenderness to palpation Skin: normal coloration; no obvious rashes, lesions or skin breakdown Psych: normal mood and affect Results/Medications Reviewed 04/02/2022 8:37 AM Laboratory, Microbiology, Radiology, Cardiology, Medications, and Transcriptions * Grant Archibald DO - 04/01/2022 10:18 AM EDT [facility] [place]GRESS [place] Assessment and Plan Radha Shafer is a 61 y.o. female patient of Jonathan Rutherford CNP with history of CPT2 deficiency, COPD, CKD, type 2 diabetes, hypothyroidism, HTN, FELISA presented on 03/30/2022 with rectal prolapse. [facility] [place] [place] by Jada Vargas,* for management of chronic medical issues. Rectal prolapse S/P Altemeier procedure by Dr. Vargas Pain management, diet advancement, and abx per primary service Awaiting return of bowel function CPT2 deficiency Musculoskeletal chest pain Had a flare of muscle weakness after surgery Non-formulary request form entered for Doljolvi, continue as prescribed Bout of chest discomfort yesterday (03/31) afternoon, troponins and EKG not concerning for ACS; suspect MSK pain, which is now resolved Encourage ambulation where possible COPD Chronic hypoxic respiratory failure On Trelegy at home, normally uses 2L NC at home as well Symbicort and Spiriva while inpatient PRN breathing treatments Titrate O2 sat for 88-92%, at baseline O2 requirement this morning Type 2 diabetes On Metformin outpatient, held while inpatient Continue SSI, will adjust as needed CKD Stage III Baseline Cr is between 1.5-1.8 Cr 1.97 today Monitor daily Primary hypertension Continue Lisinopril, Norvasc Hypothyroidism Continue Synthroid Anxiety and depression Continue Cymbalta and Wellbutrin FELISA CPAP nightly while inpatient Code Status: Full Code Quality Measures DVT Prophylaxis: per primary Diaz Catheter: placed for post-op urine retention, management per primary Subjective Seen at bedside. She has no acute complaints today. Chest discomfort has resolved. Says she had a small BM this morning Review of Systems All systems have been reviewed and are negative except as noted in HPI or below Objective BP (!) 206/99 Pulse 84 Temp 98.5 F (36.9 C) (Oral) Resp 14 Wt 109.3 kg (240 lb 15.4 oz) SpO2 95% BMI 41.36 kg/m Physical Examination General Appearance: alert; well appearing; in no acute distress HEENT: Head- normocephalic; Eyes- EOMI, sclera anicteric; Ears- hearing intact; Nose- no nasal discharge; Throat- mucous membranes moist Cardiovascular: regular rate and rhythm; normal S1, S2; no murmurs, rubs, clicks or gallops; no peripheral edema Respiratory: lungs clear to auscultation; without wheezes, rales or rhonchi; on nasal cannula Abdomen: soft, non-tender, non-distended; positive bowel sounds Neurological: oriented x 3; normal speech; no focal findings or movement disorder noted Musculoskeletal: no significant deformity or tenderness to palpation Skin: normal coloration; no obvious rashes, lesions or skin breakdown Psych: normal mood and affect Results/Medications Reviewed 04/01/2022 10:18 AM Laboratory, Microbiology, Radiology, Cardiology, Medications, and Transcriptions * Serina Meyers MD - 04/01/2022 7:38 AM EDT Colon & Rectal Surgery Progress Note: Assessment/Plan: * Rectal prolapse Assessment & Plan A: 61 yo F w/ hx CPT2 deficiency, CKD IV, COPD on home O2, HTN, FELISA, morbid obesity, and rectal prolapse here for elective repair POD 2 from [place] procedure with Dr. Vargas P: -admit to SDU post op -home O2 -PRN pain medications -CLD until RBOF -heparin DVT ppx -home meds -daily labs -PT/OT -mIVF -medicine consult -PRNs for BP -reinsert diaz today, possibly start flomax Subjective: Ms. Shafer is having urinary retention and was straight cathed twice overnight, pending diaz this AM. She still hasn't passed flatus or BM; she is tolerating CLD and has mild perianal pain; she hasn't been out of bed. Vitals: 04/01/22 0000 04/01/22 0355 04/01/22 0400 04/01/22 0700 BP: (!) 183/80 (!) 132/119 (!) 182/94 Pulse: 87 91 84 Resp: (!) 15 14 Temp: 98.5 F (36.9 C) TempSrc: Oral SpO2: 96% 95% 95% Weight: 109.3 kg (240 lb 15.4 oz) Physical Exam: Gen: alert and oriented, no acute distress HEENT: moist mucous membranes, EOMI, on nasal cannula O2 Neck: supple, trachea midline CV: RRR, palpable pulses bilaterally Resp: Comfortable on nasal cannula, equal chest rise Abd: Obese, soft, non tender abdomen, non distended Extremities: no gross deformities, moves all extremities Neuro: GCS15, CN2-12 grossly intact, no focal deficits Psych: calm, cooperative, follows commands, normal affect Hospital Medications: acetaminophen 1,300 mg Oral Q8H TRACY amLODIPine 10 mg Oral Daily aspirin 81 mg Oral Daily budesonide-formoteroL 2 puff Inhalation BID buPROPion 75 mg Oral Daily cholecalciferol (vitamin D3) 1,000 Units Oral Daily DULoxetine 60 mg Oral Daily gabapentin 100 mg Oral TID heparin (porcine) 5,000 Units Subcutaneous Q8H TRACY lispro insulin 0-15 Units Subcutaneous at bedtime insulin lispro 0-30 Units Subcutaneous TID AC levothyroxine 112 mcg Oral Daily lisinopriL 40 mg Oral Daily pantoprazole 40 mg Oral Daily sodium chloride (PF) 5 mL Intravenous Q8H [facility] tiotropium bromide 2 puff Inhalation Daily triheptanoin 18 mL Oral 4x daily Labs Lab Results Component Value Date WBC 7.70 04/01/2022 WBC 8.5 11/28/2018 HGB 9.4 (L) 04/01/2022 HGB 10.8 (L) 11/28/2018 HCT 31.8 (L) 04/01/2022 HCT 32.8 (L) 11/28/2018 PLT 269 04/01/2022 PLT 274 11/28/2018 Lab Results Component Value Date NA 134 (L) 04/01/2022 K 4.8 04/01/2022 CALCIUM 8.5 04/01/2022 CL 102 04/01/2022 BICARB 24 04/01/2022 BUN 15 04/01/2022 BUN 7 (L) 12/01/2018 CREATININE 1.48 (H) 04/01/2022 CREATININE 1.28 (H) 12/01/2018 Lab Results Component Value Date PROTIME 12.6 03/14/2022 PTT 33 03/30/2022 INR 1.0 03/14/2022 INR 0.99 06/20/2018 Lab Results Component Value Date GLUCOSE 92 04/01/2022 Lab Results Component Value Date ALBUMIN 3.4 03/14/2022 Intake/Output I/O last 3 completed shifts: In: 2100 [I.V.:2000; IV Piggyback:100] Out: 2500 [Urine:2500] No intake/output data recorded. Serina Meyers MD, PGY6 Colorectal Fellow [phone] 04/01/2022 Associated attestation - Herve Abdullahi DO - 04/01/2022 10:54 AM EDT CRS STAFF I have personally seen and examined this patient and participated in the lynne components of this encounter. I discussed the management of this case with the resident and independently confirmed the findings and plan of care as documented. I have made necessary additions or changes to the note to reflect my direct input. Reinsert Diaz for retention C/w liquid diet Herve Abdullahi DO, FACS, FASCRS * Serina Meyers MD - 03/31/2022 8:02 AM EDT Colon & Rectal Surgery Progress Note: Assessment/Plan: * Rectal prolapse Assessment & Plan A: 61 yo F w/ hx CPT2 deficiency, CKD IV, COPD on home O2, HTN, FELISA, morbid obesity, and rectal prolapse here for elective repair POD 1 from [place] procedure with Dr. Vargas P: -admit to SDU post op -home O2 -PAPERHANGER PIPE for now, discuss DC later today -CLD until RBOF -heparin DVT ppx -home meds -CXR this AM -daily labs -PT/OT -mIVF -medicine consult -PRNs for BP Subjective: Ms. Shafer is feeling better today than yesterday; she reports she had a flare of her CPT2 deficiency and felt weak, had chest pain (trop mildly elevated in light of renal disease, EKG no STEMI),and hypertension which all have resolved. She is tolerating sips of clears without nausea or emesis. She has minimal perianal pain. She has not passed flatus or BM yet. Vitals: 03/31/22 0335 03/31/22 0400 03/31/22 0500 03/31/22 0600 BP: 115/63 111/60 (!) 118/58 Pulse: 75 75 72 Resp: 13 (!) 10 (!) 10 Temp: 98.1 F (36.7 C) TempSrc: Oral SpO2: 90% 90% 91% Weight: Physical Exam: Gen: alert and oriented, no acute distress HEENT: moist mucous membranes, EOMI, on nasal cannula O2 Neck: supple, trachea midline CV: RRR, palpable pulses bilaterally Resp: Comfortable on nasal cannula, equal chest rise Abd: Obese, soft, non tender abdomen, non distended : diaz with yellow urine Extremities: no gross deformities, moves all extremities Neuro: GCS15, CN2-12 grossly intact, no focal deficits Psych: calm, cooperative, follows commands, normal affect Hospital Medications: acetaminophen 1,300 mg Oral Q8H TRACY amLODIPine 10 mg Oral Daily aspirin 81 mg Oral Daily budesonide-formoteroL 2 puff Inhalation BID buPROPion 75 mg Oral Daily cefoTEtan (CEFOTAN) IVPB 2,000 mg Intravenous Q12H cholecalciferol (vitamin D3) 1,000 Units Oral Daily DULoxetine 60 mg Oral Daily gabapentin 100 mg Oral TID heparin (porcine) 5,000 Units Subcutaneous Q8H TRACY HYDROmorphone 0.25 mg Intravenous Once lispro insulin 0-15 Units Subcutaneous at bedtime insulin lispro 0-30 Units Subcutaneous TID AC levothyroxine 112 mcg Oral Daily lisinopriL 40 mg Oral Daily metFORMIN 500 mg Oral BID pantoprazole 40 mg Oral Daily sodium chloride (PF) 5 mL Intravenous Q8H TRACY tiotropium bromide 2 puff Inhalation Daily Labs Lab Results Component Value Date WBC 12.23 (H) 03/31/2022 WBC 8.5 11/28/2018 HGB 10.0 (L) 03/31/2022 HGB 10.8 (L) 11/28/2018 HCT 34.1 (L) 03/31/2022 HCT 32.8 (L) 11/28/2018 PLT 413 (H) 03/31/2022 PLT 274 11/28/2018 Lab Results Component Value Date NA 134 (L) 03/31/2022 K 4.8 03/31/2022 CALCIUM 8.5 03/31/2022 CL 98 03/31/2022 BICARB 24 03/31/2022 BUN 22 03/31/2022 BUN 7 (L) 12/01/2018 CREATININE 1.97 (H) 03/31/2022 CREATININE 1.28 (H) 12/01/2018 Lab Results Component Value Date PROTIME 12.6 03/14/2022 PTT 33 03/30/2022 INR 1.0 03/14/2022 INR 0.99 06/20/2018 Lab Results Component Value Date GLUCOSE 97 03/31/2022 Lab Results Component Value Date ALBUMIN 3.4 03/14/2022 Intake/Output I/O last 3 completed shifts: In: 1500 [I.V.:1000; IV Piggyback:500] Out: 1300 [Urine:1200; Blood:100] No intake/output data recorded. Serina Meyers MD, PGY6 Colorectal Fellow [phone] 03/31/2022 Associated attestation - Jada Vargas MD - 03/31/2022 9:50 AM EDT The pateint was seen and examined by me. Full note per resident. I personally reviewed the following: Laboratory 03/31/22 9:44 AM I agree with the following plan: Clear liquid diet. Consult [facility] for medical management. Await bowel function. Jada Vargas MD documented in this [id number] Miscellaneous Notes* Subjective & Objective - Serina Meyers MD - 04/04/2022 8:37 AM EDT Ms. Shafer is sitting up this morning in bed and just finished her breakfast. She has some musculoskeletal soreness from getting out of bed so many times yesterday but otherwise denies having pain. She is tolerating her diet without nausea or emesis; she is having more solid BM. She had the diaz removed at midnight and is voiding without issue. She would like to go home today. Vitals: 04/04/22 0400 04/04/22 0500 04/04/22 0600 04/04/22 0741 BP: BP Location: Patient Position: Pulse: 84 75 87 Resp: (!) 19 16 (!) 19 Temp: 98.6 F (37 C) TempSrc: Oral SpO2: 93% 95% 99% Weight: Physical Exam: Gen: alert and oriented, no acute distress HEENT: moist mucous membranes, EOMI, on nasal cannula O2 Neck: supple, trachea midline CV: RRR, palpable pulses bilaterally Resp: Comfortable on nasal cannula, equal chest rise Abd: Obese, soft, non tender abdomen, non distended Extremities: no gross deformities, moves all extremities Neuro: GCS15, CN2-12 grossly intact, no focal deficits Psych: calm, cooperative, follows commands, normal affect * Quick Note - Caitlyn Mishra PA-C - 03/31/2022 6:01 PM EDT Notified by RN of patient unable to void after diaz removal, bladder scan with >500 mL. Order placed for PRN bladder scans with POUR protocol. Continue to monitor. Caitlyn Mishra PA-C Hospital Medicine Service * Assessment & Plan Note - Serina Meyers MD - 03/31/2022 8:00 AM EDT Associated Problem(s): Rectal prolapse A: 61 yo F w/ hx CPT2 deficiency, CKD IV, COPD on home O2, HTN, FELISA, morbid obesity, and rectal prolapse here for elective repair POD 5 from Altemeier procedure with Dr. Vargas with urinary retention resolved P: -admit to SDU post op -UA normal -urology consult-appreciate recs; f/u outpt -home O2 -PRN pain medications -regular low fiber diet -heparin DVT ppx -home meds -daily labs -PT/OT -medicine consult -PRNs for BP -DC flomax -DC today * Quick Note - Delonte Roa RN - 03/30/2022 10:[address] Meyers of colorectal to notify her of patient's elevated BP and patient complaint ofchest pain. Patient sates that chest pain has been going on past few days. This RN obtained an EKG which showed NSR. Physician ordered labetalol and troponin. * Op Note - Jada Vargas MD - 03/30/2022 3:13 PM EDT RADHA SHAFER [facility] [id number] 1960 DATE 03/30/2022 OPERATIVE REPORT SURGEON JADA VARGAS MD V/STOL [employer] SIGNAL OFFICER SERINA MEYERS MD, RESIDENT PREOPERATIVE DIAGNOSIS Full-thickness rectal prolapse. POSTOPERATIVE DIAGNOSIS Full-thickness rectal prolapse. PROCEDURE PERFORMED Perineal rectosigmoidectomy, or Altemeier procedure. ANESTHESIA General endotracheal anesthesia. IV FLUIDS 1000 cc of crystalloid, 500 of albumin. ESTIMATED BLOOD LOSS 100 mL. URINE OUTPUT 500 mL. OPERATIVE INDICATIONS This is a 61-year-old female who came to see me with a full-thickness rectal prolapse. I performed a colonoscopy, did not see any tumors or anything else in the rectum to explain the prolapse other than just the prolapse itself. The patient had significant comorbidities with COPD, on home O2; history of prior abdominal surgery; and abdominal obesity. Therefore, I recommended a perineal rectal sigmoidectomy. The risks of the procedure were discussed with the patient including bleeding, infection, anastomotic leak requiring stoma, bowel obstruction, thromboembolism, cardiopulmonary complications, and recurrence of the prolapse, fecal incontinence, and injury to adjacent structures such as vagina and other pelvic structures. The patient agreed to undergo the procedure. PROCEDURE IN DETAIL Patient was taken to the operating room. She was positioned in lithotomy position with Yellofins stirrups. I positioned the legs in the stirrups myself, taking care to make sure the legs were in a neutral position, and bony prominences were well padded. Venodyne boots were placed on her legs. Diaz catheter was inserted in her bladder. The perineum was prepped and draped in a standard surgical fashion. We began with a rectal washout prior to the prepping and draping. We used 3 L of saline with Betadine to irrigate out the rectum to ensure it was clean for the surgery. We then prepped and draped the patient. The prolapse was able to be removed. It was a full-thickness rectal prolapse measuring 3-4 cm in length. We grasped the edges of the prolapse. We identified the dentate line and marked with a Bovie electrocautery circumferentially around the prolapse 2 cm distal to the dentate line. Using Bovie electrocautery, we then transected the outer layer of the folded rectum procedure and carried this down to the inner portion of the rectum. This was divided circumferentially. We then began mobilizing the rectum away from the pelvic attachments. This was done laterally and posteriorly. Anteriorly, we the vagina from the rectum. Care was taken to avoid injuring the rectum. We checked multiple times throughout his portion to ensure that the vagina was well protected. We identified the anterior peritoneal reflection and opened it. We were then able to mobilized the remaining of the rectum and divided the mesentery posteriorly in order to fully mobilize the rectum. The sigmoid itself was not redundant and we identified the rectosigmoid, which appeared to be an optimal location for the anastomosis. The rectosigmoid was opened anteriorly and sutures were placed in the anterior quadrant and then we extended this laterally and placed stay sutures in the lateral quadrants and then posteriorly the bowel was divided and we divided the remaining mesentery posteriorly using the LigaSure device. The operative site was inspected for hemostasis. All bleeding points were cauterized. The anterior peritoneal reflection was closed using a running 2-0 Vicryl suture. Next, the coloanal anastomosis was performed using interrupted 0 Vicryl sutures. This was done circumferentially. We used a Boston retractor for retraction and this was released prior to doing the anastomosis. The anastomosis appeared to be complete. The bowel was pink and healthy. It was not under any tension and there was no further prolapse seen. The anastomosis was palpated and felt to be intact, as well as visually inspected. The patient was extubated, returned to recovery room in stable condition. I was present for the entire procedure. All needle and instrument counts were correct at the end of the case. MD Krzysztof LEMON 03/30/2022 14:46 [id number] T 03/30/2022 15:08 ARON/SHILOHL * Brief Op Note - Serina Meyers MD - 03/30/2022 12:23 PM EDT Brief Post Operative Note Patient Name: Radha Shafer : 1960 (61 y.o.) Date of Service: 03/30/2022 CSN: [id number] Procedure(s): ALTEMEIER PROCEDURE Pre-Operative Diagnoses: * Rectal prolapse [K62.3] Post-Operative Diagnoses: * Rectal prolapse [K62.3] Surgeon(s) and Role: * Jada Vargas MD - Primary Luigi pgy6 Anesthesiologist: Alexandro Rajput MD MANAGER FINANCIAL REPORTING: Gen Hartmann CRNA Fast Food Manager: Janice Vergara RN Fast Food Manager Relief: Rosina Cazares RN Scrub Person Relief: ST Stella Scrub Person: ST Venus Operative findings: altemeier procedure Intra and immediate post-operative complications: none Type of anesthesia used: Estimated blood loss: 100 mL Estimated urine output: 500 mL Specimen(s): ID Type Source Tests Collected by Time Destination A : Tissue Rectum TISSUE EXAM Jada Vargas MD 03/30/2022 1353 Implant(s): * No implants in log * Drain(s): Urethral Catheter 16 Fr. (Active) Wound(s): * No LDAs found * Serina Meyers MD 03/30/2022 2:50 PM documented in this [id number] Consult note* Kings Allen MD - 04/02/2022 3:55 PM EDTAssociated Order(s): IP CONSULT TO UROLOGY Images from the original note were not included. [facility] - CONSULT NOTE: Patient Name: Radha Shafer DATE: 04/02/2022 ASSESSMENT / PLAN: Radha Shafer is a 61 y.o. (status post ADAM-BSO) female with the following active urological problem list following Altemeier procedure on 03/30/2022 for prolapsing rectum and plan 1. Urinary retention - This is likely associated with medication induced inhibition of detrusor contractility. She currently has an indwelling Diaz catheter. I believe that we could likely proceed with voiding trial supported by straight catheterizations within the next 48 hours as she metabolizes her anesthetic. 2. Stress urinary incontinence - At baseline, prior to recent hospitalization for rectal surgery, patient reports worsening stressurinary incontinence requiring 2-3 diapers daily. On physical exam, she has POP Q2 cystocele as well. Patient is interested in intervention, and thus I advised for outpatient follow-up when she recovers from her rectal surgery. 3. POP Q2 cystocele - I do not believe her cystocele is contributing to her urinary retention. Patient is not sexually active and denies any dyspareunia. DISPOSITION & RECOMMENDATIONS: Recommended Plan of Care: Voiding trial within the next 24 to 48 hours as she gets closer to discharge. Follow-up: Outpatient follow-up with me to discuss potential correction of worsening stress urinaryincontinence and POP Q2 cystocele Thank you for the consult. Please call with questions or to discuss. Kings Allen MD [facility] Physicians Office: REASON FOR CONSULT: Acute urinary retention following surgery HISTORY OF PRESENT ILLNESS: Radha Shafer is a 61 y.o. female with acute urinary retention following Altemeier procedure for rectal prolapse history of rectal prolapse. Past medical history significant for: Worsening stress urinary incontinence. Patient denies prior history of urological surgery or urinary retention. HISTORY: Past Medical History: Diagnosis Date Anxiety Arthritis Back pain Bladder problem incontinence Cancer (HCC) thyroid Chronic pain disorder Colitis sigmoid COPD (chronic obstructive pulmonary disease) ([facility]) 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[facility]) Per pt. - Depression Diabetes (HCC) Diverticulosis Emphysema of lung (HCC) GERD (gastroesophageal reflux disease) Hepatic steatosis History of echocardiogram History of stress test Hypertension Hypothyroidism Kidney disease, chronic, stage I (GFR over 89 ml/min) stage 3 Obesity On home oxygen therapy 2L via NC, PRN with walking, activity Sleep apnea noncompliant with CPAP; uses home oxygen Sleep apnea, obstructive Past Surgical History: Procedure Laterality Date ALTEMEIER PROCEDURE N/A 03/30/2022 Procedure: ALTEMEIER PROCEDURE; Surgeon: Jada Vargas MD; [place] [facility]; Service: Colorectal CARDIOVASCULAR STRESS TEST CHOLECYSTECTOMY COLONOSCOPY with biopsies COLONOSCOPY N/A 02/17/2022 Procedure: COLONOSCOPY; Surgeon: Jada Vargas MD; [place] [facility]; Service: Colorectal GALLBLADDER HYSTERECTOMY JOINT REPLACEMENT Left knee ORTHOPEDIC SURGERY r wrist surgery, left ankle, right rotator cuff ROTATOR CUFF REPAIR Right THYROIDECTOMY N/A 07/15/2015 Procedure: TOTAL THYROIDECTOMY; Surgeon: Lopez Alonso MD; Location: [facility] OR; Service: US ECHO TRANSTHORACIC FOLLOWUP LIMITED WRIST SURGERY Right Social History Socioeconomic History Marital status: Occupational History Occupation: [employer] 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 Family History Problem Relation Age of Onset Heart disease Mother Lupus Mother Stroke Mother Arthritis Mother Heart attack Mother Heart disease Father Heart attack Father Hypertension Father Hypertension Sister Hypertension Brother Prostate cancer Brother Colon cancer Brother Hypertension Brother Prostate cancer Brother Colon cancer Brother Hypertension Brother Prostate cancer Brother Stomach cancer Brother Heart attack Maternal Grandmother Heart attack Maternal Grandfather Heart attack Paternal Grandmother Heart attack Paternal Grandfather Breast cancer Neg Hx Current Facility-Administered Medications: acetaminophen (TYLENOL ER) extended-release tablet 1,300 mg, 1,300 mg, Oral, Q8H TRACY, Tatiana Nadine Butt PA-C, 1,300 mg at 04/02/22 1430 albuterol inhaler 2 puff, 2 puff, Inhalation, Q6H PRN, Tatiana Nadine Butt, PA-C amLODIPine (NORVASC) tablet 10 mg, 10 mg, Oral, Daily, Tatiana Butt PA-C, 10 mg at 04/02/22 0812 aspirin chewable tablet 81 mg, 81 mg, Oral, Daily, Tatiana Butt PA-C, 81 mg at 04/02/22 0900 budesonide-formoteroL (SYMBICORT) 80-4.5 mcg/actuation inhaler 2 puff, 2 puff, Inhalation, BID, Wendy Mcclure, PharmD, 2 puff at 04/02/22 0900 buPROPion (WELLBUTRIN) tablet 75 mg, 75 mg, Oral, Daily, Tatiana Butt PA-C, 75 mg at 04/02/22 0812 cholecalciferol (vitamin D3) tablet 1,000 Units, 1,000 Units, Oral, Daily, Tatiana Butt PA-C, 1,000 Units at 04/02/22 0811 doxepin (SINEQUAN) capsule 50 mg, 50 mg, Oral, Nightly PRN, Tatiana Butt PA-C, 50 mg at 03/31/22 0237 DULoxetine (CYMBALTA) DR capsule 60 mg, 60 mg, Oral, Daily, Tatiana Butt PA-C, 60 mg at 04/02/22 0811 gabapentin (NEURONTIN) capsule 100 mg, 100 mg, Oral, TID, AALIYAH Duron, 100 mg at 04/02/22 1429 heparin (porcine) injection 5,000 Units, 5,000 Units, Subcutaneous, Q8H TRACY, Tatiana Butt PA-C, 5,000 Units at 04/02/22 1429 insulin lispro (AdmeLOG,HumaLOG) injection 0-15 Units, 0-15 Units, Subcutaneous, at bedtime, Grant Archibald, insulin lispro (AdmeLOG,HumaLOG) injection 0-30 Units, 0-30 Units, Subcutaneous, TID AC, Tatiana Tapia PA-C, 4 Units at 04/02/22 1241 labetaloL (NORMODYNE,TRANDATE) injection 10 mg, 10 mg, Intravenous, Q4H PRN, Serina Meyers MD, 10 mg at 04/02/22 0533 levalbuterol (XOPENEX) nebulizer solution 1.25 mg, 1.25 mg, Nebulization, Q6H PRN, Tatiana Butt PA-C levothyroxine (SYNTHROID, LEVOTHROID) tablet 112 mcg, 112 mcg, Oral, Daily, Tatiana Butt PA-C,112 mcg at 04/02/22 0556 lisinopriL (PRINIVIL,ZESTRIL) tablet 40 mg, 40 mg, Oral, Daily, Tatiana Butt PA-C, 40 mg at 04/02/22 0811 ondansetron (ZOFRAN-ODT) disintegrating tablet 4 mg, 4 mg, Oral, Q6H PRN, 4 mg at 04/01/22 2105 OR ondansetron (ZOFRAN) injection 4 mg, 4 mg, Intravenous, Q6H PRN, Tatiana Butt PA-C oxyCODONE (ROXICODONE) immediate release tablet 5 mg, 5 mg, Oral, Q4H PRN, Serina Meyers MD, 5 mg at 04/01/22 0921 pantoprazole (PROTONIX) EC tablet 40 mg, 40 mg, Oral, Daily, Tatiana Butt PA-C, 40 mg at 04/02/22 0900 Saline lock IV, , , Continuous AND sodium chloride (PF) (NS) flush 5 mL, 5 mL, Intravenous, PRNAND sodium chloride (PF) (NS) flush 5 mL, 5 mL, Intravenous, Q8H TRACY, 5 mL at 04/01/22 2120 AND sodium chloride 0.9% (NS), 0-150 mL/hr, Intravenous, PRN, Tatiana Butt PA-C tamsulosin (FLOMAX) 24 hr capsule 0.4 mg, 0.4 mg, Oral, After evening meal, Serina Meyers MD, 0.4 mg at 04/01/22 1745 tiotropium bromide (SPIRIVA RESPIMAT) 2.5 mcg/actuation inhaler 2 puff, 2 puff, Inhalation, Daily, Wendy Mcclure, PharmD, 2 puff at 04/02/22 0815 traZODone (DESYREL) tablet 50 mg, 50 mg, Oral, Nightly PRN, Tatiana Butt PA-C, 50 mg at 03/31/22 2148 triheptanoin Liqd 18 mL, 18 mL, Oral, 4x daily, Andree Villasenor [facility],PharmD, 18 mL at 04/02/22 1241 Allergies Allergen Reactions Penicillins Unknown and Other (See Comments) Was told as a child that she is allergic, but has never taken it to know the reaction. Childhood reaction Was told as a child that she is allergic, but has never taken it to know the reaction. REVIEW OF SYSTEMS: 12 point ROS performed and all systems negative except as in the HPI. PHYSICAL EXAM: PACU Vitals 04/02/22 1500 BP: (!) 176/98 Pulse: (!) 100 Resp: (!) 28 Temp: SpO2: GENERAL: Well appearing. No acute distress. EYES: PERRLA, EOMI EARS, NOSE, MOUTH, THROAT: mucous memebranes moist, trachea midline ABDOMEN: Soft, nondistended, nontender. BACK: No CVA tenderness. : No vaginal introitus lesions or or discharges. POP Q [address]stocele. [address] catheter in place. MUSCULOSKELETAL: normal extremity ROM with no edema LYMPH: No cervical or supraclavicular lymphadenopathy NEURO: Normal gait, CN II-XII grossly intact PSYCHATRIC: A & O x3, mood and affect appropriate SKIN: No rashes, ulcers, or lesions visible DATA: IMAGING: I personally reviewed the patient's CT scan images from 12/29/2021. I discussed the results in the office today with the patient. We went over the pertinent levels of the scan and I interpreted the findings for the patient. The patient verbalized understanding of my interpretation. Findings are as follows: 1. No obstructive uropathy. Multifocal right renal scarring present without overt masses or stones. 2. Bladder and ureters appear unremarkable. 3. Uterus is surgically absent. DATA: LAB: Results from last 7 days Lab Units 04/02/22 0426 SODIUM mmol/L 136 POTASSIUM mmol/L 5.0 CHLORIDE mmol/L 101 BUN mg/dL 11 CREATININE mg/dL 1.12 GLUCOSE mg/dL 95 CALCIUM mg/dL 8.6 Results from last 7 days Lab Units 04/02/22 0426 WBC K/mcL 7.21 HGB g/dL 9.4* HCT % 31.9* PLT K/mcL 280 Assessment Detail: Problem List Items Addressed This Visit Digestive * (Principal) Rectal prolapse A: 61 yo F w/ hx CPT2 deficiency, CKD IV, COPD on home O2, HTN, FELISA, morbid obesity, and rectal prolapse here for elective repair POD 3 from Altemeier procedure with Dr. Vargas with urinary retention now P: -admit to SDU post op -UA -urology consult -home O2 -PRN pain medications -CLD until RBOF -heparin DVT ppx -home meds -daily labs -PT/OT -mIVF -medicine consult -PRNs for BP -diaz , continue flomax Relevant Orders Tissue Exam Kings Allen MD [facility] Urology - [facility] Office: [phone] [id number] Consult note* Kings Allen MD - 04/02/2022 3:55 PM EDT Associated Order(s): IP CONSULT TO UROLOGY Images from the original note were not included. [facility] UROLOGY [place] - CONSULT NOTE: Patient Name: Radha Shafer DATE: 04/02/2022 ASSESSMENT / PLAN: Radha Shafer is a 61 y.o. (status post ADAM-BSO) female with the following active urological problem list following Altemeier procedure on 03/30/2022 for prolapsing rectum and plan 1. Urinary retention - This is likely associated with medication induced inhibition of detrusor contractility. She currently has an indwelling Diaz catheter. I believe that we could likely proceed with voiding trial supported by straight catheterizations within the next 48 hours as she metabolizes her anesthetic. 2. Stress urinary incontinence - At baseline, prior to recent hospitalization for rectal surgery, patient reports worsening stressurinary incontinence requiring 2-3 diapers daily. On physical exam, she has POP Q2 cystocele as well. Patient is interested in intervention, and thus I advised for outpatient follow-up when she recovers from her rectal surgery. 3. POP Q2 cystocele - I do not believe her cystocele is contributing to her urinary retention. Patient is not sexually active and denies any dyspareunia. DISPOSITION & RECOMMENDATIONS: Recommended Plan of Care: Voiding trial within the next 24 to 48 hours as she gets closer to discharge. Follow-up: Outpatient follow-up with me to discuss potential correction of worsening stress urinaryincontinence and POP Q2 cystocele Thank you for the consult. Please call with questions or to discuss. Kings Allen MD [facility] Urology Physicians Office: REASON FOR CONSULT: Acute urinary retention following surgery HISTORY OF PRESENT ILLNESS: Radha Shafer is a 61 y.o. female with acute urinary retention following Altemeier procedure for rectal prolapse history of rectal prolapse. Past medical history significant for: Worsening stress urinary incontinence. Patient denies prior history of urological surgery or urinary retention. HISTORY: Past Medical History: Diagnosis Date Anxiety Arthritis Back pain Bladder problem incontinence Cancer (HCC) thyroid Chronic pain disorder Colitis sigmoid COPD (chronic obstructive pulmonary disease) (HCC) 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HCC) Per pt. - Depression Diabetes (HCC) Diverticulosis Emphysema of lung (HCC) GERD (gastroesophageal reflux disease) Hepatic steatosis History of echocardiogram History of stress test Hypertension Hypothyroidism Kidney disease, chronic, stage I (GFR over 89 ml/min) stage 3 Obesity On home oxygen therapy 2L via [place], PRN with walking, activity Sleep apnea noncompliant with CPAP; uses home oxygen Sleep apnea, obstructive Past Surgical History: Procedure Laterality Date ALTEMEIER PROCEDURE N/A 03/30/2022 Procedure: ALTEMEIER PROCEDURE; Surgeon: Jada Vargas MD; [place] [facility] [place]; Service: Colorectal CARDIOVASCULAR STRESS TEST CHOLECYSTECTOMY COLONOSCOPY with biopsies COLONOSCOPY N/A 02/17/2022 Procedure: COLONOSCOPY; Surgeon: Jada Varags MD; [place] [facility]; Service: Colorectal GALLBLADDER HYSTERECTOMY JOINT REPLACEMENT Left knee ORTHOPEDIC SURGERY r wrist surgery, left ankle, right rotator cuff ROTATOR CUFF REPAIR Right THYROIDECTOMY N/A 07/15/2015 Procedure: TOTAL THYROIDECTOMY; Surgeon: Lopez Alonso MD; Location: [facility] OR; Service: US ECHO TRANSTHORACIC FOLLOWUP LIMITED WRIST SURGERY Right Social History Socioeconomic History Marital status: Occupational History 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 Family History Problem Relation Age of Onset Heart disease Mother Lupus Mother Stroke Mother Arthritis Mother Heart attack Mother Heart disease Father Heart attack Father Hypertension Father Hypertension Sister Hypertension Brother Prostate cancer Brother Colon cancer Brother Hypertension Brother Prostate cancer Brother Colon cancer Brother Hypertension Brother Prostate cancer Brother Stomach cancer Brother Heart attack Maternal Grandmother Heart attack Maternal Grandfather Heart attack Paternal Grandmother Heart attack Paternal Grandfather Breast cancer Neg Hx Current Facility-Administered Medications: acetaminophen (TYLENOL ER) extended-release tablet 1,300 mg, 1,300 mg, Oral, Q8H TRACY, Tatiana Butt PA-C, 1,300 mg at 04/02/22 1430 albuterol inhaler 2 puff, 2 puff, Inhalation, Q6H PRN, Tatiana Butt PA-C amLODIPine (NORVASC) tablet 10 mg, 10 mg, Oral, Daily, Tatiana Butt PA-C, 10 mg at 04/02/22 0812 aspirin chewable tablet 81 mg, 81 mg, Oral, Daily, Tatiana Butt PA-C, 81 mg at 04/02/22 0900 budesonide-formoteroL (SYMBICORT) 80-4.5 mcg/actuation inhaler 2 puff, 2 puff, Inhalation, BID, Wendy Mcclure PharmD, 2 puff at 04/02/22 0900 buPROPion (WELLBUTRIN) tablet 75 mg, 75 mg, Oral, Daily, Tatiana Butt PA-C, 75 mg at 04/02/22 0812 cholecalciferol (vitamin D3) tablet 1,000 Units, 1,000 Units, Oral, Daily, Tatiana Butt PA-C, 1,000 Units at 04/02/22 0811 doxepin (SINEQUAN) capsule 50 mg, 50 mg, Oral, Nightly PRN, Tatiana Butt PA-C, 50 mg at 03/31/22 0237 DULoxetine (CYMBALTA) DR capsule 60 mg, 60 mg, Oral, Daily, Tatiana Butt PA-C, 60 mg at 04/02/22 0811 gabapentin (NEURONTIN) capsule 100 mg, 100 mg, Oral, TID, AALIYAH Duron, 100 mg at 04/02/22 1429 heparin (porcine) injection 5,000 Units, 5,000 Units, Subcutaneous, Q8H TRACY, Tatiana Butt PA-C, 5,000 Units at 04/02/22 1429 insulin lispro (AdmeLOG,HumaLOG) injection 0-15 Units, 0-15 Units, Subcutaneous, at bedtime, Grant Archibald DO insulin lispro (AdmeLOG,HumaLOG) injection 0-30 Units, 0-30 Units, Subcutaneous, TID AC, Tatiana Tapia PA-C, 4 Units at 04/02/22 1241 labetaloL (NORMODYNE,TRANDATE) injection 10 mg, 10 mg, Intravenous, Q4H PRN, Serina Meyers MD, 10 mg at 04/02/22 0533 levalbuterol (XOPENEX) nebulizer solution 1.25 mg, 1.25 mg, Nebulization, Q6H PRN, Tatiana Butt PA-C levothyroxine (SYNTHROID, LEVOTHROID) tablet 112 mcg, 112 mcg, Oral, Daily, Tatiana Butt PA-C,112 mcg at 04/02/22 0556 lisinopriL (PRINIVIL,ZESTRIL) tablet 40 mg, 40 mg, Oral, Daily, Tatiana Butt PA-C, 40 mg at 04/02/22 0811 ondansetron (ZOFRAN-ODT) disintegrating tablet 4 mg, 4 mg, Oral, Q6H PRN, 4 mg at 04/01/22 2105 OR ondansetron (ZOFRAN) injection 4 mg, 4 mg, Intravenous, Q6H PRN, Tatiana Butt PA-C oxyCODONE (ROXICODONE) immediate release tablet 5 mg, 5 mg, Oral, Q4H PRN, Serina Meyers MD, 5 mg at 04/01/22 0921 pantoprazole (PROTONIX) EC tablet 40 mg, 40 mg, Oral, Daily, Tatiana Butt PA-C, 40 mg at 04/02/22 0900 Saline lock IV, , , Continuous AND sodium chloride (PF) (NS) flush 5 mL, 5 mL, Intravenous, PRNAND sodium chloride (PF) (NS) flush 5 mL, 5 mL, Intravenous, Q8H TRACY, 5 mL at 04/01/22 2120 AND sodium chloride 0.9% (NS), 0-150 mL/hr, Intravenous, PRN, Tatiana Butt PA-C tamsulosin (FLOMAX) 24 hr capsule 0.4 mg, 0.4 mg, Oral, After evening meal, Serina Meyers MD, 0.4 mg at 04/01/22 1745 tiotropium bromide (SPIRIVA RESPIMAT) 2.5 mcg/actuation inhaler 2 puff, 2 puff, Inhalation, Daily, Wendy Mcclure, PharmD, 2 puff at 04/02/22 0815 traZODone (DESYREL) tablet 50 mg, 50 mg, Oral, Nightly PRN, Tatiana Butt PA-C, 50 mg at 03/31/22 2148 triheptanoin Liqd 18 mL, 18 mL, Oral, 4x daily, Andree Villasenor [facility],PharmD, 18 mL at 04/02/22 1241 Allergies Allergen Reactions Penicillins Unknown and Other (See Comments) Was told as a child that she is allergic, but has never taken it to know the reaction. Childhood reaction Was told as a child that she is allergic, but has never taken it to know the reaction. REVIEW OF SYSTEMS: 12 point ROS performed and all systems negative except as in the HPI. PHYSICAL EXAM: PACU Vitals 04/02/22 1500 BP: (!) 176/98 Pulse: (!) 100 Resp: (!) 28 Temp: SpO2: GENERAL: Well appearing. No acute distress. EYES: PERRLA, EOMI EARS, NOSE, MOUTH, THROAT: mucous memebranes moist, trachea midline ABDOMEN: Soft, nondistended, nontender. BACK: No CVA tenderness. : No vaginal introitus lesions or or discharges. POP Q [address]stocele. Diaz catheter in place. MUSCULOSKELETAL: normal extremity ROM with no edema LYMPH: No cervical or supraclavicular lymphadenopathy NEURO: Normal gait, CN II-XII grossly intact PSYCHATRIC: A & O x3, mood and affect appropriate SKIN: No rashes, ulcers, or lesions visible DATA: IMAGING: I personally reviewed the patient's CT scan images from 12/29/2021. I discussed the results in the office today with the patient. We went over the pertinent levels of the scan and I interpreted the findings for the patient. The patient verbalized understanding of my interpretation. Findings are as follows: 1. No obstructive uropathy. Multifocal right renal scarring present without overt masses or stones. 2. Bladder and ureters appear unremarkable. 3. Uterus is surgically absent. DATA: LAB: Results from last 7 days Lab Units 04/02/22 0426 SODIUM mmol/L 136 POTASSIUM mmol/L 5.0 CHLORIDE mmol/L 101 BUN mg/dL 11 CREATININE mg/dL 1.12 GLUCOSE mg/dL 95 CALCIUM mg/dL 8.6 Results from last 7 days Lab Units 04/02/22 0426 WBC K/mcL 7.21 HGB g/dL 9.4* HCT % 31.9* PLT K/mcL 280 Assessment Detail: Problem List Items Addressed This Visit Digestive * (Principal) Rectal prolapse A: 61 yo F w/ hx CPT2 deficiency, CKD IV, COPD on home O2, HTN, FELISA, morbid obesity, and rectal prolapse here for elective repair POD 3 from Altemeier procedure with Dr. Vargas with urinary retention now P: -admit to SDU post op -UA -urology consult -home O2 -PRN pain medications -CLD until RBOF -heparin DVT ppx -home meds -daily labs -PT/OT -mIVF -medicine consult -PRNs for BP -diaz , continue flomax Relevant Orders Tissue Exam Kings Allen MD [facility] Office: [phone] * Grant Hollis Cristela, DO - 03/31/2022 7:59 AM EDTAssociated Order(s): IP CONSULT TO HOSPITALIST [facility] Patient Name: Radha Shafer : 1960 MR #: [id number] Admit Date: 03/30/2022 Physicians: Jonathan Rutherford CNP (Family); No ref. provider found (Referring) Radha Shafer is a 61 y.o. female patient of Jonathan Rutherford CNP with history of CPT2 deficiency, COPD, CKD, type 2 diabetes, hypothyroidism, HTN, FELISA presented on 03/30/2022 with rectal prolapse. [facility] [place] [place] by Jada Vargas,* for management of chronic medical issues. Rectal prolapse S/P Altemeier procedure by Dr. Vargas Pain management, diet advancement, and abx per primary service Awaiting return of bowel function CPT2 deficiency Had a flare of muscle weakness after surgery yesterday, feeling better today Non-formulary request form entered for Doljolvi, continue as prescribed Encourage ambulation where possible COPD Chronic hypoxic respiratory failure On Trelegy at home, normally uses 2L NC at home as well Symbicort and Spiriva while inpatient PRN breathing treatments Titrate O2 sat for 88-92%, at baseline O2 requirement this morning Type 2 diabetes On Metformin outpatient, held while inpatient Continue SSI, will adjust as needed CKD Stage III Baseline Cr is between 1.5-1.8 Cr 1.97 today Monitor daily Primary hypertension Continue Lisinopril, Norvasc Hypothyroidism Continue Synthroid Anxiety and depression Continue Cymbalta and Wellbutrin FELISA CPAP nightly while inpatient Medication Reconciliation: Verified Code Status: Full Code Quality Measures DVT Prophylaxis: per primary Diaz Catheter: Absent Disposition Discharge Location: per primary service Estimated Discharge Date: per primary service Chief Complaint weakness History of Present Illness Radha Shafer is a 61 year old female who presents with rectal prolapse. She is doing well since surgery yesterday. She had a bout of muscle weakness after surgery but this has improved. She brought her bottle of Doljolvi from home which she takes for her CPT2 deficiency. As of now her pain is controlled and her only other complaint is mild nausea. She denies fever/chills, chest discomfort, shortness of breath. She has not yet had a bowel movement post-op. Past Medical History Past Medical History: Diagnosis Date Anxiety Arthritis Back pain Bladder problem incontinence Cancer (HCC) thyroid Chronic pain disorder Colitis sigmoid COPD (chronic obstructive pulmonary disease) (HCC) 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HCC) Per pt. - Depression Diabetes (HCC) Diverticulosis Emphysema of lung (HCC) GERD (gastroesophageal reflux disease) Hepatic steatosis History of echocardiogram History of stress test Hypertension Hypothyroidism Kidney disease, chronic, stage I (GFR over 89 ml/min) stage 3 Obesity On home oxygen therapy 2L via NC, PRN with walking, activity Sleep apnea noncompliant with CPAP; uses home oxygen Sleep apnea, obstructive Past Surgical History Past Surgical History: Procedure Laterality Date CARDIOVASCULAR STRESS TEST CHOLECYSTECTOMY COLONOSCOPY with biopsies COLONOSCOPY N/A 02/17/2022 Procedure: COLONOSCOPY; Surgeon: Jada Vargas MD; [place] [facility] [place]; Service: Colorectal GALLBLADDER HYSTERECTOMY JOINT REPLACEMENT Left knee ORTHOPEDIC SURGERY r wrist surgery, left ankle, right rotator cuff ROTATOR CUFF REPAIR Right THYROIDECTOMY N/A 07/15/2015 Procedure: TOTAL THYROIDECTOMY; Surgeon: Lopez Alonso MD; Location: [facility] OR; Service: US ECHO TRANSTHORACIC FOLLOWUP LIMITED WRIST SURGERY Right Family History Family History Problem Relation Age of Onset Heart disease Mother Lupus Mother Stroke Mother Arthritis Mother Heart attack Mother Heart disease Father Heart attack Father Hypertension Father Hypertension Sister Hypertension Brother Prostate cancer Brother Colon cancer Brother Hypertension Brother Prostate cancer Brother Colon cancer Brother Hypertension Brother Prostate cancer Brother Stomach cancer Brother Heart attack Maternal Grandmother Heart attack Maternal Grandfather Heart attack Paternal Grandmother Heart attack Paternal Grandfather Breast cancer Neg Hx Social History Social History Tobacco Use Smoking Status Former Packs/day: 1.00 Years: 20.00 Pack years: 20.00 Types: Cigarettes Quit date: 07/10/2013 Years since quittin.7 Smokeless Tobacco Never Social History Substance and Sexual Activity Alcohol Use No Social History Substance and Sexual Activity Drug Use Yes Frequency: 7.0 times per week Types: Marijuana Comment: currently using daily for pain and depression. Allergy Information I have reviewed the patient's allergies. Penicillins Home Medications Home medications were reviewed. Review Of Systems All systems have been reviewed and are negative except as noted in HPI or below Constitutional: Denies fever, chills, weight loss ENT: Denies hearing loss, nasal congestion, sore throat CV: Denies chest pain, palpitations, peripheral edema Respiratory: Denies shortness of breath, cough, wheezing GI: Denies abdominal pain, nausea, vomiting, diarrhea, constipation : Denies dysuria, frequent urination Integumentary: Denies skin changes, pruritis Physical Examination BP (!) 118/58 Pulse 72 Temp 98.1 F (36.7 C) (Oral) Resp (!) 10 Wt 105.9 kg (233 lb 7.5 oz) SpO2 91% BMI 40.07 kg/m General Appearance: alert; chronically ill appearing; in no acute distress HEENT: Head- normocephalic; Eyes- EOMI, sclera anicteric; Ears- hearing intact; Nose- no nasal discharge; Throat- mucous membranes moist Cardiovascular: regular rate and rhythm; normal S1, S2; no murmurs, rubs, clicks or gallops; no peripheral edema Respiratory: lungs clear to auscultation; without wheezes, rales or rhonchi; on nasal cannula Abdomen: soft, non-tender, non-distended; positive bowel sounds Neurological: oriented x 3; normal speech; no focal findings or movement disorder noted Musculoskeletal: no significant deformity or tenderness to palpation Skin: normal coloration; no obvious rashes, lesions or skin breakdown Psych: normal mood and affect Laboratory and Additional Data Reviewed Laboratory 03/31/22 12:08 PM Microbiology 03/31/22 12:08 PM Radiology 03/31/22 12:08 PM Cardiology 03/31/22 12:08 PM Medications 03/31/22 12:08 PM Transcriptions 03/31/22 12:08 PM documented in this [id number] Note* Quick Note - Caitlyn Mishra PA-C - 03/31/2022 6:01 PM EDT Notified by RN of patient unable to void after diaz removal, bladder scan with >500 mL. Order placed for PRN bladder scans with POUR protocol. Continue to monitor. Caitlyn Mishra PA-C Hospital Medicine Service [facility] Work Phone: [phone] Evaluation + Plan note* Assessment & Plan Note - Serina Meyers MD - 03/31/2022 8:00 AM EDTAssociated Problem(s): Rectal prolapse A: 61 yo F w/ hx CPT2 deficiency, CKD IV, COPD on home O2, HTN, FELISA, morbid obesity, and rectal prolapse here for elective repair POD 5 from Altemeier procedure with Dr. Vargas with urinary retention resolved P: -admit to SDU post op -UA normal -urology consult-appreciate recs; f/u outpt -home O2 -PRN pain medications -regular low fiber diet -heparin DVT ppx -home meds -daily labs -PT/OT -medicine consult -PRNs for BP -DC flomax -DC today [id number] Consult note* Grant Archibald DO - 03/31/2022 7:59 AM EDTAssociated Order(s): IP CONSULT TO HOSPITALIST [facility] [place] [place] Patient Name: Radha Shafer : 1960 MR #: [id number] Admit Date: 03/30/2022 Physicians: Jonathan Rutherford CNP (Family); No ref. provider found (Referring) Radha Shafer is a 61 y.o. female patient of Jonathan Rutherford CNP with history of CPT2 deficiency, COPD, CKD, type 2 diabetes, hypothyroidism, HTN, FELISA presented on 03/30/2022 with rectal prolapse. [facility] consulted by Jada Vargas,* for management of chronic medical issues. Rectal prolapse S/P Altemeier procedure by Dr. Vargas Pain management, diet advancement, and abx per primary service Awaiting return of bowel function CPT2 deficiency Had a flare of muscle weakness after surgery yesterday, feeling better today Non-formulary request form entered for Doljolvi, continue as prescribed Encourage ambulation where possible COPD Chronic hypoxic respiratory failure On Trelegy at home, normally uses 2L NC at home as well Symbicort and Spiriva while inpatient PRN breathing treatments Titrate O2 sat for 88-92%, at baseline O2 requirement this morning Type 2 diabetes On Metformin outpatient, held while inpatient Continue SSI, will adjust as needed CKD Stage III Baseline Cr is between 1.5-1.8 Cr 1.97 today Monitor daily Primary hypertension Continue Lisinopril, Norvasc Hypothyroidism Continue Synthroid Anxiety and depression Continue Cymbalta and Wellbutrin FELISA CPAP nightly while inpatient Medication Reconciliation: Verified Code Status: Full Code Quality Measures DVT Prophylaxis: per primary Diaz Catheter: Absent Disposition Discharge Location: per primary service Estimated Discharge Date: per primary service Chief Complaint weakness History of Present Illness Radha Shafer is a 61 year old female who presents with rectal prolapse. She is doing well since surgery yesterday. She had a bout of muscle weakness after surgery but this has improved. She brought her bottle of Doljolvi from home which she takes for her CPT2 deficiency. As of now her pain is controlled and her only other complaint is mild nausea. She denies fever/chills, chest discomfort, shortness of breath. She has not yet had a bowel movement post-op. Past Medical History Past Medical History: Diagnosis Date Anxiety Arthritis Back pain Bladder problem incontinence Cancer (HCC) thyroid Chronic pain disorder Colitis sigmoid COPD (chronic obstructive pulmonary disease) (HCC) 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HCC) Per pt. - Depression Diabetes (HCC) Diverticulosis Emphysema of lung (HCC) GERD (gastroesophageal reflux disease) Hepatic steatosis History of echocardiogram History of stress test Hypertension Hypothyroidism Kidney disease, chronic, stage I (GFR over 89 ml/min) stage 3 Obesity On home oxygen therapy 2L via NC, PRN with walking, activity Sleep apnea noncompliant with CPAP; uses home oxygen Sleep apnea, obstructive Past Surgical History Past Surgical History: Procedure Laterality Date CARDIOVASCULAR STRESS TEST CHOLECYSTECTOMY COLONOSCOPY with biopsies COLONOSCOPY N/A 02/17/2022 Procedure: COLONOSCOPY; Surgeon: Jada Vargas MD; [place] [facility] [place]; Service: Colorectal GALLBLADDER HYSTERECTOMY JOINT REPLACEMENT Left knee ORTHOPEDIC SURGERY r wrist surgery, left ankle, right rotator cuff ROTATOR CUFF REPAIR Right THYROIDECTOMY N/A 07/15/2015 Procedure: TOTAL THYROIDECTOMY; Surgeon: Lopez Alonso MD; Location: [facility]; Service: US ECHO TRANSTHORACIC FOLLOWUP LIMITED WRIST SURGERY Right Family History Family History Problem Relation Age of Onset Heart disease Mother Lupus Mother Stroke Mother Arthritis Mother Heart attack Mother Heart disease Father Heart attack Father Hypertension Father Hypertension Sister Hypertension Brother Prostate cancer Brother Colon cancer Brother Hypertension Brother Prostate cancer Brother Colon cancer Brother Hypertension Brother Prostate cancer Brother Stomach cancer Brother Heart attack Maternal Grandmother Heart attack Maternal Grandfather Heart attack Paternal Grandmother Heart attack Paternal Grandfather Breast cancer Neg Hx Social History Social History Tobacco Use Smoking Status Former Packs/day: 1.00 Years: 20.00 Pack years: 20.00 Types: Cigarettes Quit date: 07/10/2013 Years since quittin.7 Smokeless Tobacco Never Social History Substance and Sexual Activity Alcohol Use No Social History Substance and Sexual Activity Drug Use Yes Frequency: 7.0 times per week Types: Marijuana Comment: currently using daily for pain and depression. Allergy Information I have reviewed the patient's allergies. Penicillins Home Medications Home medications were reviewed. Review Of Systems All systems have been reviewed and are negative except as noted in HPI or below Constitutional: Denies fever, chills, weight loss ENT: Denies hearing loss, nasal congestion, sore throat CV: Denies chest pain, palpitations, peripheral edema Respiratory: Denies shortness of breath, cough, wheezing GI: Denies abdominal pain, nausea, vomiting, diarrhea, constipation : Denies dysuria, frequent urination Integumentary: Denies skin changes, pruritis Physical Examination BP (!) 118/58 Pulse 72 Temp 98.1 F (36.7 C) (Oral) Resp (!) 10 Wt 105.9 kg (233 lb 7.5 oz) SpO2 91% BMI 40.07 kg/m General Appearance: alert; chronically ill appearing; in no acute distress HEENT: Head- normocephalic; Eyes- EOMI, sclera anicteric; Ears- hearing intact; Nose- no nasal discharge; Throat- mucous membranes moist Cardiovascular: regular rate and rhythm; normal S1, S2; no murmurs, rubs, clicks or gallops; no peripheral edema Respiratory: lungs clear to auscultation; without wheezes, rales or rhonchi; on nasal cannula Abdomen: soft, non-tender, non-distended; positive bowel sounds Neurological: oriented x 3; normal speech; no focal findings or movement disorder noted Musculoskeletal: no significant deformity or tenderness to palpation Skin: normal coloration; no obvious rashes, lesions or skin breakdown Psych: normal mood and affect Laboratory and Additional Data Reviewed Laboratory 03/31/22 12:08 PM Microbiology 03/31/22 12:08 PM Radiology 03/31/22 12:08 PM Cardiology 03/31/22 12:08 PM Medications 03/31/22 12:08 PM Transcriptions 03/31/22 12:08 PM [id number] Note* Quick Note - Delonte Roa RN - 03/30/2022 10:[address] Meyers of colorectal to notify her of patient's elevated BP and patient complaint ofchest pain. Patient sates that chest pain has been going on past few days. This RN obtained an EKG which showed NSR. Physician ordered labetalol and troponin. [id number] Note* Op Note - Jada Vargas MD - 03/30/2022 3:13 PM EDT RADHA SHAFER CSN [id number] 1960 DATE 03/30/2022 OPERATIVE REPORT SURGEON JADA VARGAS MD V/[employer]OL [employer] SIGNAL OFFICER SERINA MEYERS MD, RESIDENT PREOPERATIVE DIAGNOSIS Full-thickness rectal prolapse. POSTOPERATIVE DIAGNOSIS Full-thickness rectal prolapse. PROCEDURE PERFORMED Perineal rectosigmoidectomy, or Altemeier procedure. ANESTHESIA General endotracheal anesthesia. IV FLUIDS 1000 cc of crystalloid, 500 of albumin. ESTIMATED BLOOD LOSS 100 mL. URINE OUTPUT 500 mL. OPERATIVE INDICATIONS This is a 61-year-old female who came to see me with a full-thickness rectal prolapse. I performed a colonoscopy, did not see any tumors or anything else in the rectum to explain the prolapse other than just the prolapse itself. The patient had significant comorbidities with COPD, on home O2; history of prior abdominal surgery; and abdominal obesity. Therefore, I recommended a perineal rectal sigmoidectomy. The risks of the procedure were discussed with the patient including bleeding, infection, anastomotic leak requiring stoma, bowel obstruction, thromboembolism, cardiopulmonary complications, and recurrence of the prolapse, fecal incontinence, and injury to adjacent structures such as vagina and other pelvic structures. The patient agreed to undergo the procedure. PROCEDURE IN DETAIL Patient was taken to the operating room. She was positioned in lithotomy position with Yellofins stirrups. I positioned the legs in the stirrups myself, taking care to make sure the legs were in a neutral position, and bony prominences were well padded. Venodyne boots were placed on her legs. Diaz catheter was inserted in her bladder. The perineum was prepped and draped in a standard surgical fashion. We began with a rectal washout prior to the prepping and draping. We used 3 L of saline with Betadine to irrigate out the rectum to ensure it was clean for the surgery. We then prepped and draped the patient. The prolapse was able to be removed. It was a full-thickness rectal prolapse measuring 3-4 cm in length. We grasped the edges of the prolapse. We identified the dentate line and marked with a Bovie electrocautery circumferentially around the prolapse 2 cm distal to the dentate line. Using Bovie electrocautery, we then transected the outer layer of the folded rectum procedure and carried this down to the inner portion of the rectum. This was divided circumferentially. We then began mobilizing the rectum away from the pelvic attachments. This was done laterally and posteriorly. Anteriorly, we the vagina from the rectum. Care was taken to avoid injuring the rectum. We checked multiple times throughout his portion to ensure that the vagina was well protected. We identified the anterior peritoneal reflection and opened it. We were then able to mobilized the remaining of the rectum and divided the mesentery posteriorly in order to fully mobilize the rectum. The sigmoid itself was not redundant and we identified the rectosigmoid, which appeared to be an optimal location for the anastomosis. The rectosigmoid was opened anteriorly and sutures were placed in the anterior quadrant and then we extended this laterally and placed stay sutures in the lateral quadrants and then posteriorly the bowel was divided and we divided the remaining mesentery posteriorly using the LigaSure device. The operative site was inspected for hemostasis. All bleeding points were cauterized. The anterior peritoneal reflection was closed using a running 2-0 Vicryl suture. Next, the coloanal anastomosis was performed using interrupted 0 Vicryl sutures. This was done circumferentially. We used a Boston retractor for retraction and this was released prior to doing the anastomosis. The anastomosis appeared to be complete. The bowel was pink and healthy. It was not under any tension and there was no further prolapse seen. The anastomosis was palpated and felt to be intact, as well as visually inspected. The patient was extubated, returned to recovery room in stable condition. I was present for the entire procedure. All needle and instrument counts were correct at the end of the case. JADA VARGAS MD D 03/30/2022 14:46 [id number] T 03/30/2022 15:08 ARON/MODEli [id number] Note* Brief Op Note - Serina Meyers MD - 03/30/2022 12:23 PM EDT Brief Post Operative Note Patient Name: Radha Shafer : 1960 (61 y.o.) Date of Service: 03/30/2022 CSN: [id number] Procedure(s): ALTEMEIER PROCEDURE Pre-Operative Diagnoses: * Rectal prolapse [K62.3] Post-Operative Diagnoses: * Rectal prolapse [K62.3] Surgeon(s) and Role: * Jada Vargas MD - Primary Luigi [id number] Anesthesiologist: Alexandro Rajput MD MANAGER FINANCIAL REPORTING: Gen Hartmann CRNA Fast Food Manager: Janice Vergara RN Fast Food Manager Relief: Rosina Cazares RN Scrub Person Relief: ST Stella Scrub Person: ST Venus Operative findings: altemeier procedure Intra and immediate post-operative complications: none Type of anesthesia used: Estimated blood loss: 100 mL Estimated urine output: 500 mL Specimen(s): ID Type Source Tests Collected by Time Destination A : Tissue Rectum TISSUE EXAM Jada Vargas MD 03/30/2022 1353 Implant(s): * No implants in log * Drain(s): Urethral Catheter 16 Fr. (Active) Wound(s): * No LDAs found * Serina Meyers MD 03/30/2022 2:50 PM [id number] Hospital course Narrative* Serina Meyers MD - 03/30/2022 12:23 PM EDT Images from the original note were not included. DISCHARGE SUMMARY Patient: Radha Shafer Date of : 1960 Site: [facility] Family Provider: Jonathan Rutherford CNP Admit Date: 03/30/2022 Discharge Date/Time: 04/04/22 Morning Disposition: Home Clinical Summary Hospital Course: Radha Shafer is a 61 y.o. female patient of Jonathan Rutherford CNP with a history of comorbidities who did well after her surgery. Discharge Diagnoses: * Rectal prolapse Assessment & Plan A: 61 yo F w/ hx CPT2 deficiency, CKD IV, COPD on home O2, HTN, FELISA, morbid obesity, and rectal prolapse here for elective repair POD 5 from [facility] procedure with Dr. Vargas with urinary retention resolved P: -admit to SDU post op -UA normal -urology consult-appreciate recs; f/u outpt -home O2 -PRN pain medications -regular low fiber diet -heparin DVT ppx -home meds -daily labs -PT/OT -medicine consult -PRNs for BP -DC flomax -DC today Surgeries: 03/30/22 ALTEMEIER PROCEDURE Consults: Procedures Inpatient consult to Hospitalist Inpatient consult to Urology Allergies: Penicillins Discharge Diet: Diabetic High Fiber Resume home diet Condition: Good Discharge Medications: Discharge Medications New Medications Details oxyCODONE 5 MG immediate release tablet Commonly known as: ROXICODONE Take 1 (one) tablet (5 mg total) by mouth every 4 (four) hours as needed (severe pain if unrelievedby tylenol) . Quantity: 12 tablet Modified Medications Details Trelegy Ellipta 200-62.5-25 mcg Dsdv Generic drug: vvdzbejcpdc-aebdaracb-ljubfhfq What changed: Another medication with the same name was removed. Continue taking this medication, and follow the directions you see here. Inhale 1 (one) Inhalation daily . Quantity: 60 each Medications To Continue Details * albuterol 0.63 mg/3 mL nebulizer solution Commonly known as: ACCUNEB Take 1 ampule by nebulization every 6 (six) hours as needed for wheezing. * albuterol 90 mcg/actuation inhaler Inhale 2 puffs every 6 (six) hours as needed for wheezing. amLODIPine 5 MG tablet Commonly known as: NORVASC Take 10 mg by mouth daily . aspirin 81 mg chewable tablet Chew and Swallow 81 mg daily . buPROPion 75 MG tablet Commonly known as: WELLBUTRIN cholecalciferol (vitamin D3) 1,000 unit tablet Take 1,000 Units by mouth daily. Dojolvi 8.3 kcal/mL Liqd Generic drug: triheptanoin Take by mouth 4 (four) times a day . doxepin 50 MG capsule Commonly known as: SINEQUAN Take 50 mg by mouth nightly as needed for sleep. DULoxetine 60 MG capsule Commonly known as: CYMBALTA Take 60 mg by mouth daily. ferrous sulfate 325 (65 FE) MG tablet Take 325 mg by mouth daily with breakfast. fluticasone propionate 50 mcg/actuation nasal spray Commonly known as: FLONASE Instill 2 (two) sprays into each nostril daily . Quantity: 16 g levothyroxine 112 MCG tablet Commonly known as: SYNTHROID, LEVOTHROID Take 112 mcg by mouth daily lisinopriL 40 MG tablet Commonly known as: PRINIVIL,ZESTRIL Take 40 mg by mouth daily. metFORMIN 500 MG tablet Commonly known as: GLUCOPHAGE Take 500 mg by mouth 2 (two) times a day . omeprazole 40 MG capsule Commonly known as: PRILOSEC Take 40 mg by mouth daily . oxygen Inhale 2 L/min as needed Per patient, only used when walking or with activity . tiZANidine 4 MG capsule Commonly known as: ZANAFLEX Take 4 mg by mouth nightly Pt takes 3 pills for a total of 12mg . * There are duplicate medications prescribed to the patient Stopped Medications gabapentin 100 MG capsule Commonly known as: NEURONTIN ipratropium-albuteroL 0.5-2.5 mg/3 ml nebulizer Commonly known as: DUO-NEB TRELEGY ELLIPTA INHL You also have another medication with the same name that you need to continue taking as instructed. Physician(s) Family Provider: Jonathan Rutherford CNP, Address: [address] [place] [address] Follow Up: No follow-up provider specified. Additional Information: high fiber diet Patient instructions, including activity, were given to the patient/family at discharge. Please seethe After Visit Summary in the electronic medical record for details. Time spent on discharge: < 30 minutes Completed by: Serina Meyers MD on 04/04/22, 8:41 AM Associated attestation - Jada Vargas MD - 04/04/2022 8:45 AM EDT Ok for dc. Fu in 2-3 weeks. documented in this [id number] Attending History and physical note* Jada Vargas MD - 03/30/2022 11:13 AM EDT INTERVAL HISTORY AND PHYSICAL Patient Name: Radha Shafer Admit Date: 5241208 MR #: [id number] : 1960 The H&P has been reviewed and the patient has been examined. I concur with the findings of the H&P. There are no significant changes. It is appropriate to proceed with the planned procedure. Jada Vargas MD 03/30/2022 11:13 AM Source Note - Jada Vargas MD - 03/25/2022 1:52 PM EDT [id number] History and physical note* Jada Vargas MD - 03/30/2022 11:13 AM EDT INTERVAL HISTORY AND PHYSICAL Patient Name: Radha Shafer Admit Date: [id number] MR #: [id number] : 1960 The H&P has been reviewed and the patient has been examined. I concur with the findings of the H&P. There are no significant changes. It is appropriate to proceed with the planned procedure. Jada Vargas MD 03/30/2022 11:13 AM Source Note - Jada Vargas MD - 03/25/2022 1:52 PM EDT documented in this [id number] Nurse Surgical operation note* Stacy Alexander RN - 03/29/2022 11:24 AM EDT PT DENIES IMPLANTS [facility] Surgical Department Patient Instructions for [facility]: Prior to surgery: Please bathe the night before and the morning of your surgery to help prevent the chance of any surgical site infection. If your physician provided you with a special soap please use it Please be sure to remove any jewelry and piercing's, and leave all valuables at home. Please do not apply any lotions or makeup on the morning of surgery. Please do not eat any FOOD 8 hours before the time you are scheduled to arrive at the hospital unless otherwise instructed by your Surgeon. You may drink CLEAR LIQUIDS(see-through liquids include: water, clear electrolyte drinks such as Gatorade, Powerade or Pedialyte, black coffee or plain tea) until 2 hours before coming to the hospital. If you were instructed to take any of your medications on the morning of surgery, please take them with small sips of water. Please remember to bring a list of your current medications, including any herbals and OTC's, on the day of surgery. You may brush your teeth in the morning as well as rinse out your mouth - but no swallowing. Please remember to bring your Insurance Card and photo ID with you on the day of surgery - we will make copies of these items and return them to you. Bring any Advance Directive if desired. When you arrive at the [facility] on the day of your surgery, please note that route delivery driver parking is free. Pull up to the front of the building - an attendant will park your vehicle for you. Enter the building - ahead will be a podium and a guest service liaison who will greet you and direct you to the first floor waiting room. A nurse will meet you in the Surgery Waiting Room and will be the one to take you back to PreOp when they are ready for you. One adult may accompany you to PreOp if you so desire. Please be sure to remove any jewelry and piercing's, and leave all valuables at home. We recommend Children under the age of 16 not accompany you to the hospital Please see that all cellular devices are put on silence to keep your environment calm. Please be sure to wear loose, casual clothing on the day of surgery. Shoulders - wear a button down or zippered shirt Knees - wear sweat pants, shorts, or loose fitting pants There will be a bulky dressing over the incision Please bring any assistive devices, such as crutches & walkers, with you on the day of surgery if you have them. If you have a diagnosis of Sleep Apnea we request that you bring your C-Pap machine with you. If you have any implanted spinal and/or bladder stimulator devices, please bring the remote with you. Have you had a chance to view our online educational program in iJento? It is very helpful to watch this as it can help you understand your surgery preparation process here at [facility]. It will provide you with additional important information that will help to make your surgery and rec overy process as smooth as possible. After your surgery: If you are scheduled as an outpatient, a responsible licensed adult must be available for transportation, and is expected to remain at the hospital throughout the duration of your procedure. This person must be 18 years old or older. You are not allowed to drive yourself home. A responsible adult must stay with you for 24 hours following your surgery. This includes when being transported by a Medical Taxi [id number] Nurse Note* Stacy Alexander RN - 03/29/2022 11:24 AM EDT PT DENIES IMPLANTS [facility] Surgical Department Patient Instructions for [facility]: Prior to surgery: Please bathe the night before and the morning of your surgery to help prevent the chance of any surgical site infection. If your physician provided you with a special soap please use it Please be sure to remove any jewelry and piercing's, and leave all valuables at home. Please do not apply any lotions or makeup on the morning of surgery. Please do not eat any FOOD 8 hours before the time you are scheduled to arrive at the hospital unless otherwise instructed by your Surgeon. You may drink CLEAR LIQUIDS(see-through liquids include: water, clear electrolyte drinks such as Gatorade, Powerade or Pedialyte, black coffee or plain tea) until 2 hours before coming to the hospital. If you were instructed to take any of your medications on the morning of surgery, please take them with small sips of water. Please remember to bring a list of your current medications, including any herbals and OTC's, on the day of surgery. You may brush your teeth in the morning as well as rinse out your mouth - but no swallowing. Please remember to bring your Insurance Card and photo ID with you on the day of surgery - we will make copies of these items and return them to you. Bring any Advance Directive if desired. When you arrive at the [facility] on the day of your surgery, please note that route delivery driver parking is free. Pull up to the front of the building - an attendant will park your vehicle for you. Enter the building - ahead will be a podium and a guest service liaison who will greet you and direct you to the first floor waiting room. A nurse will meet you in the Surgery Waiting Room and will be the one to take you back to PreOp when they are ready for you. One adult may accompany you to PreOp if you so desire. Please be sure to remove any jewelry and piercing's, and leave all valuables at home. We recommend Children under the age of 16 not accompany you to the hospital Please see that all cellular devices are put on silence to keep your environment calm. Please be sure to wear loose, casual clothing on the day of surgery. Shoulders - wear a button down or zippered shirt Knees - wear sweat pants, shorts, or loose fitting pants There will be a bulky dressing over the incision Please bring any assistive devices, such as crutches & walkers, with you on the day of surgery if you have them. If you have a diagnosis of Sleep Apnea we request that you bring your C-Pap machine with you. If you have any implanted spinal and/or bladder stimulator devices, please bring the remote with you. Have you had a chance to view our online educational program in iJento? It is very helpful to watch this as it can help you understand your surgery preparation process here at [facility]. It will provide you with additional important information that will help to make your surgery and rec overy process as smooth as possible. After your surgery: If you are scheduled as an outpatient, a responsible licensed adult must be available for transportation, and is expected to remain at the hospital throughout the duration of your procedure. This person must be 18 years old or older. You are not allowed to drive yourself home. A responsible adult must stay with you for 24 hours following your surgery. This includes when being transported by a Medical Taxi * Elo Venegas RN - 03/29/2022 8:[address] Carter who is third call today to discuss patient's chart and cardiac results. Dr. Carter reviewed patient's chart and agreed with cardiology and stated it is ok to proceed with surgery. * Elo Venegas RN - 03/29/2022 8:10 AM EDT Called patient's PCP office and requested updated not from Jonathan Rutherford CNP to be faxed to [phone]. * Elo Venegas RN - 03/28/2022 7:58 AM EDT Secure chat message to Sindhu at Dr. Vargas's office requesting orders and consent. * Elo Venegas RN - 03/25/2022 12:32 PM EDT Secure chat message to Sindhu at Dr. Vargas's office inquiring about how Dr. Vargas would like to proceed since at this current time patient is not cleared for surgery from PCP or from cardiology. Also requested orders and consent to be faxed over. * Elo Venegas RN - 03/24/2022 1:50 PM EDT Called patient's PCP office and requested PAT paperwork, cardiac clearance and labs be faxed to [phone] when completed. * Elo Venegas RN - 03/24/2022 1:45 PM EDT Secure chat message to Darlin at Dr. Vargas's office requesting orders and consent. documented in this [id number] Nurse Surgical operation note* Elo Venegas RN - 03/29/2022 8:[address] Carter who is third call today to discuss patient's chart and cardiac results. Dr. Carter reviewed patient's chart and agreed with cardiology and stated it is ok to proceed with surgery. [id number] Nurse Surgical operation note* Elo Venegas RN - 03/29/2022 8:10 AM EDT Called patient's PCP office and requested updated not from Jonathan Rutherford CNP to be faxed to [phone]. [id number] History of Present illness Narrative* Jyoti Reeves - 03/28/2022 4:15 PM EDT Pt notified cardiac clearance in chart. documented in this [id number] Nurse Surgical operation note* Elo Venegas RN - 03/28/2022 7:58 AM EDT Secure chat message to Sindhu at Dr. Vargas's office requesting orders and consent. [id number] Nurse Surgical operation note* Elo Venegas RN - 03/25/2022 12:32 PM EDT Secure chat message to Sindhu at Dr. Vargas's office inquiring about how Dr. Vargas would like to proceed since at this current time patient is not cleared for surgery from PCP or from cardiology. Also requested orders and consent to be faxed over. [id number] Nurse Surgical operation note* Elo Venegas RN - 03/24/2022 1:50 PM EDT Called patient's PCP office and requested PAT paperwork, cardiac clearance and labs be faxed to [phone] when completed. [id number] Nurse Surgical operation note* Elo Venegas RN - 03/24/2022 1:45 PM EDT Secure chat message to Darlin at Dr. Vargas's office requesting orders and consent. [id number] History of Present illness Narrative* Jyoti Reeves - 03/21/2022 2:39 PM EDT Pt needs stress test and cardiology consult before surgery. Jason Grullon at Jonathan Rutherford CNP office. She will put referrals in today with note to expedite due to surgery date 03/30. * Jyoti Reeves - 03/21/2022 1:52 PM EDT Faxed ekg to Jonathan Rutherford CNP. documented in this [id number] History of Present illness Narrative* Jyoti Reeves - 03/21/2022 1:52 PM EDT Faxed ekg to Jonathan Rutherford CNP. documented in this [id number] History of Present illness Narrative* Jada Vargas MD - 03/01/2022 10:10 AM EDT CC: Chief Complaint Patient presents with Rectal Prolapse Discuss surgery HPI: Patient is here to discuss surgery. She had a colonoscopy which did not show any mass or other abnormality other than the prolapse. She had pulmonary clearance which says she is at higher than average risk for surgery but does not have a absolute contraindication. She requires oxygen at baseline. Physical exam: Vitals: 03/01/22 0947 BP: (!) 142/74 BP Location: Left arm BP Cuff Size: X-large Adult Pulse: 90 Weight: 114.6 kg (252 lb 9.6 oz) No exam Labs/Tests: Admission on 02/17/2022, Discharged on 02/17/2022 Component Date Value Ref Range Status Sodium 02/17/2022 131 (A) 135 - 145 mmol/L Final Potassium 02/17/2022 4.7 3.5 - 5.1 mmol/L Final Moderately Hemolyzed Chloride 02/17/2022 94 (A) 98 - 108 mmol/L Final Bicarbonate 02/17/2022 24 21 - 32 mmol/L Final Anion Gap 02/17/2022 18 10 - 20 mmol/L Final Glucose 02/17/2022 119 (A) 65 - 99 mg/dL Final BUN 02/17/2022 24 8 - 25 mg/dL Final Creatinine 02/17/2022 1.36 (A) 0.60 - 1.20 mg/dL Final eGFR 02/17/2022 41 (A) >=60 mL/min/1.73 m2 Final BUN/Creatinine Ratio 02/17/2022 17.6 10.0 - 20.0 Final Calcium 02/17/2022 8.6 8.4 - 10.2 mg/dL Final Glucose 02/17/2022 119 (A) 65 - 99 mg/dL Final Assessment/Plan: Assessment I recommended a perineal rectosigmoidectomy. I think an abdominal procedure would put too much strain on her lungs. She will still need anesthesia for the perineal rectosigmoidectomy but we will not have to hopefully open her abdominal wall. Risks of a perineal rectosigmoidectomy were discussed including bleeding, infection, leak requiring stoma, bowel obstruction, thromboembolism, cardiopulmonary complications, recurrent rectal prolapse and fecal incontinence. She is interested in proceeding. Call the office or go to emergency room if: - severe pain - fever over 101.5 - heavy bleeding - nausea and vomiting - difficulty urinating All questions answered. documented in this [id number] History of Present illness Narrative* America Stone MA - 01/07/2022 9:56 AM EST Pt has colonoscopy scheduled with ARON at [facility] 02/17 @11:30am H/o polyps documented in this [id number] Note* Addendum Note - Bety Hanson LPN - 12/30/2021 12:01 PM ESTAddended by: BETY HANSON on: 12/30/2021 12:01 PM Modules accepted: Orders [id number] Note* Addendum Note - Bety Hanson LPN - 12/30/2021 12:01 PM ESTAddended by: BETY HANSON on: 12/30/2021 12:01 PM Modules accepted: Orders [id number] Note* Addendum Note - Bety Hanson LPN - 12/30/2021 12:01 PM ESTAddended by: BETY HANSON on: 12/30/2021 12:01 PM Modules accepted: Orders [id number] Miscellaneous Notes* Addendum Note - Bety Hanson LPN - 12/30/2021 12:01 PM ESTAddended by: BETY HANSON on: 12/30/2021 12:01 PM Modules accepted: Orders documented in this [id number] History of Present illness Narrative* Estrada Garcia MD - 12/30/2021 11:00 AM EST [facility] [address] [facility] [address] [place] [id number] Name: Radha Shafer Age: 61 y.o. : 1960 Today's date: 12/30/21 Outpatient Pulmonary Consult Note Chief Complaint Patient presents with Consult Pre-op Radha Shafer is a 61 y.o. female who presents to Pulmonary clinic for evaluation of pre-operative risk assessment. They were referred by Dr. Rutherford. HPI: Ms. Shafer is a 61 year old woman 25 pack year former smoker who quit in 2012 with COPD who presents for initial evaluation. She used to follow with Dr. Vinson. Ms. Shafer was diagnosed with COPD 10 years ago. She reports that she does not cough much at all. She is not bringing up sputum. She does complain of JJ over very limted distances (within her own house). She does not get out much anymore because she gets short of breath. She has been diagnosedwith FELISA but is unable to tolerate her CPAP. She has no recent chest imaging. I do not see PFTs on file. She has been on Trelegy in the past which helped, but was has not followed with her old report analyst so has been going without any inhalers. She has a nebulizer machine but is out of medicationfor it. She has not had exacerbations that have required hospitalization. She has not required oxygen in the past. She has required prednisone on a few occasions over the past 10 years. 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 She is [facility] at [facility]. Past Medical History: Diagnosis Date Anxiety Arthritis Back pain Bladder problem incontinence Cancer (HCC) thyroid Chronic pain disorder Colitis sigmoid COPD (chronic obstructive pulmonary disease) (HCC) Depression Diverticulosis Emphysema of lung (HCC) GERD (gastroesophageal reflux disease) Hepatic steatosis Hypertension Hypothyroidism Kidney disease, chronic, stage I (GFR over 89 ml/min) stage 3 Obesity Sleep apnea Past Surgical History: Procedure Laterality Date CARDIOVASCULAR STRESS TEST CHOLECYSTECTOMY COLONOSCOPY with biopsies GALLBLADDER HYSTERECTOMY JOINT REPLACEMENT Left knee ORTHOPEDIC SURGERY r wrist surgery, left ankle, right rotator cuff ROTATOR CUFF REPAIR Right THYROIDECTOMY N/A 07/15/2015 Procedure: TOTAL THYROIDECTOMY; Surgeon: Lpoez Alonso MD; Location: [facility]; Service: US ECHO TRANSTHORACIC FOLLOWUP LIMITED WRIST SURGERY Right Family History Problem Relation Age of Onset Heart disease Mother Lupus Mother Stroke Mother Arthritis Mother Heart attack Mother Heart disease Father Heart attack Father Hypertension Father Hypertension Sister Hypertension Brother Prostate cancer Brother Colon cancer Brother Hypertension Brother Prostate cancer Brother Colon cancer Brother Hypertension Brother Prostate cancer Brother Stomach cancer Brother Heart attack Maternal Grandmother Heart attack Maternal Grandfather Heart attack Paternal Grandmother Heart attack Paternal Grandfather Breast cancer Neg Hx Other pulmonary history: None Social History Socioeconomic History Marital status: Occupational History 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 Objective: Outpatient Medications as of 12/30/2021 Medication Sig albuterol (PROVENTIL HFA;VENTOLIN HFA) 90 mcg/actuation inhaler Inhale 2 puffs every 6 (six) hours as needed for wheezing. amLODIPine (NORVASC) 5 MG tablet Take 10 mg by mouth daily . buPROPion (WELLBUTRIN) 75 MG tablet cholecalciferol, vitamin D3, 1,000 unit tablet Take 1,000 Units by mouth daily. doxepin (SINEQUAN) 50 MG capsule Take 50 mg by mouth nightly as needed for sleep. DULoxetine (CYMBALTA) 60 MG capsule Take 60 mg by mouth daily. ferrous sulfate 325 (65 FE) MG tablet Take 325 mg by mouth daily with breakfast. gabapentin (NEURONTIN) 100 MG capsule Take 100 mg by mouth 3 (three) times a day . levothyroxine (SYNTHROID, LEVOTHROID) 112 MCG tablet Take 112 mcg by mouth daily lisinopril (PRINIVIL,ZESTRIL) 40 MG tablet Take 40 mg by mouth daily. metFORMIN (GLUCOPHAGE) 500 MG tablet Take 500 mg by mouth 2 (two) times a day . omeprazole (PRILOSEC) 40 MG capsule Take 40 mg by mouth daily . tiZANidine (ZANAFLEX) 4 MG capsule Take 4 mg by mouth nightly Pt takes 3 pills for a total of 12mg . triheptanoin (Dojolvi) 8.3 kcal/mL Liqd Take by mouth 4 (four) times a day . albuterol (ACCUNEB) 0.63 mg/3 mL nebulizer solution Take 1 ampule by nebulization every 6 (six) hours as needed for wheezing. fluticasone propionate (FLONASE) 50 mcg/actuation nasal spray Instill 2 (two) sprays into each nostril daily . fluticasone/umeclidin/vilanter (TRELEGY ELLIPTA INHL) Inhale . Allergies Allergen Reactions Penicillins Unknown and Other (See Comments) Was told as a child that she is allergic, but has never taken it to know the reaction. Childhood reaction Was told as a child that she is allergic, but has never taken it to know the reaction. BP 109/68 (BP Location: Right arm) Pulse (!) 107 Temp 98.3 F (36.8 C) (Temporal) Wt 110.4 kg (243 lb 4.8 oz) SpO2 94% Comment: on room air after rest BMI 41.76 kg/m from IP Vitals Flowsheet Date/Time Weight 12/30/21 1035 110.4 Physical Exam: Vitals reviewed Gen: Alert and oriented x 3, In no apparent distress HEENT: Head: Normocephalic, no lesions, without obvious abnormality. Neck: no mass, no stridor Cardio: rapid rate, regular rhythm Resp: distant breath sounds bilaterally, no wheezes or crackles, no tachypnea or accessory muscle use Abd: soft, nontender MSK: Moves all four extremities spontaneously. Neuro: Grossly normal without focal findings Skin: no rashes, no jaundice PFT Results PFT Pre-bronchodilator None PFT Post-bronchodilator None PFT Lung Volumes None PFT Diffusion None Interpretation: None on file Imaging: No recent imaging of chest. Reviewed reports of normal CXR from 2018. Assessment and Plan: Radha was seen today for consult. Diagnoses and all orders for this visit: Screening for lung cancer - CT Lung Cancer Screening; Future Chronic obstructive pulmonary disease, unspecified COPD type (HCC) - CT Lung Cancer Screening; Future Other orders - lfuxtamnllt-glvsifgdc-sbmmhoxu (Trelegy Ellipta) 200-62.5-25 mcg DsDv; Inhale 1 (one) Inhalation daily . - ipratropium-albuteroL (DUO-NEB) 0.5-2.5 mg/3 ml nebulizer; Take 3 mL by nebulization 3 (three) times a day as needed for wheezing or shortness of breath . - Home Oxygen Concentrator with Portability Nasal cannula; 2 LPM; Continuous and/or During Exertion; [facility] Ms. Shafer is a 61 year old woman 25 pack year former smoker who quit in 2012 with COPD who presents for initial evaluation. She has COPD. Six minute walk test demonstrated need for supplemental oxygen on exertion. She requires 2LNC with exertion. She should be on LAMA/LABA/ICS inhaler. RenewedTrelegy prescription. I have also ordered medication for her nebulizer. I have ordered home oxygen therapy. Ms Shafer is at higher than average risk for pulmonary complication during this surgery, but there is no absolute contraindication to proceeding. I advise perioperative bronchodilators, early mobilization and incentive spirometry post op. She has borderline hypoxemia already so I would not be surprised if she requires oxygen post operatively. Also she has untreated sleep apnea which should carlos a consideration post operatively. She qualifies for Lung Cancer Screening. Counseling and education provided. CT ordered. RTC in 3 months Estrada Garcia MD documented in this [id number] History of Present illness Narrative* Chepe Yin CNP - 08/04/2021 2:00 PM EDT ENT New Patient Visit Patient Name: Radha Shafer MR #: [id number] : 1960 Physicians: Jonathan Rutherford CNP (Family); Jonathan Rutherford CNP (Referring) Chief Complaint/Reason for Visit: dizziness History of Present Illness: Radha Shafer is a 61 y.o. y/o female presenting from home with c/o dizziness New patient who presents with concerns for dizziness that started 5-6 months and has been intermittent since onset. Symptoms are triggered by going from sitting to standing too quickly and with looking up at ski and improved with sitting down. Treatment has included Meclizine with no benefit. Patient with significant medical history and medication regimen. Denies ear pain/pressure/drainage, mastoid reactivity, headache, vision changes, hearing changes, facial paresthesia, nausea, vomiting, fever, or other constitutional symptoms. Other symptoms include feeling of fluid in ears, intermittent tinnitus, chronic rhinorrhea, sneezing, and occasional nasal congestion. Patient is a former smoker, reports quitting 7 years ago and continues with vaping marijuana now. No new medications at time of onset, head/ear injury or surgery, denies history of sinusitis, or other contributing factors. History: Past Medical History: Diagnosis Date Anxiety Arthritis Back pain Bladder problem incontinence Cancer (HCC) thyroid Chronic pain disorder Colitis sigmoid COPD (chronic obstructive pulmonary disease) (HCC) Depression Diverticulosis Emphysema of lung (HCC) GERD (gastroesophageal reflux disease) Hepatic steatosis Hypertension Hypothyroidism Kidney disease, chronic, stage I (GFR over 89 ml/min) stage 3 Obesity Sleep apnea Past Surgical History: Procedure Laterality Date CARDIOVASCULAR STRESS TEST CHOLECYSTECTOMY COLONOSCOPY with biopsies GALLBLADDER HYSTERECTOMY JOINT REPLACEMENT Left knee ORTHOPEDIC SURGERY r wrist surgery, left ankle, right rotator cuff ROTATOR CUFF REPAIR Right THYROIDECTOMY N/A 07/15/2015 Procedure: TOTAL THYROIDECTOMY; Surgeon: Lopez Alonso MD; Location: [facility]; Service: US ECHO TRANSTHORACIC FOLLOWUP LIMITED WRIST SURGERY Right Family History Problem Relation Age of Onset Heart disease Mother Lupus Mother Stroke Mother Arthritis Mother Heart attack Mother Heart disease Father Heart attack Father Hypertension Father Hypertension Sister Hypertension Brother Prostate cancer Brother Hypertension Brother Prostate cancer Brother Hypertension Brother Prostate cancer Brother Heart attack Maternal Grandmother Heart attack Maternal Grandfather Heart attack Paternal Grandmother Heart attack Paternal Grandfather Social History Socioeconomic History Marital status: Spouse name: Not on file Number of children: Not on file Years of education: Not on file Highest education level: Not on file Occupational History 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 Tobacco Use Smoking status: Former Smoker Packs/day: 1.00 Years: 20.00 Pack years: 20.00 Quit date: 07/10/2013 Years since quittin.0 Smokeless tobacco: Never Used Vaping Use Vaping Use: Never used Substance and Sexual Activity Alcohol use: No Drug use: Yes Types: Marijuana Comment: currently using Sexual activity: Not on file Other Topics Concern Not on file Social History Narrative Not on file Social Determinants of Health Financial Resource Strain: Difficulty of Paying Living Expenses: Not on file Food Insecurity: Worried About Running Out of Food in the Last Year: Not on file Ran Out of Food in the Last Year: Not on file Transportation Needs: Lack of Transportation (Medical): Not on file Lack of Transportation (Non-Medical): Not on file Physical Activity: Days of Exercise per Week: Not on file Minutes of Exercise per Session: Not on file Stress: Feeling of Stress : Not on file Social Connections: Frequency of Communication with Friends and Family: Not on file Frequency of Social Gatherings with Friends and Family: Not on file Attends Voodoo Services: Not on file Active Member of Clubs or Organizations: Not on file Attends Club or Organization Meetings: Not on file Marital Status: Not on file Housing Stability: Unable to Pay for Housing in the Last Year: Not on file Number of Places Lived in the Last Year: Not on file Unstable Housing in the Last Year: Not on file Allergy Information: I have reviewed the patient's allergies. Allergies Allergen Reactions Penicillins Unknown and Other (See Comments) Was told as a child that she is allergic, but has never taken it to know the reaction. Childhood reaction Was told as a child that she is allergic, but has never taken it to know the reaction. Home Medications: Current Outpatient Medications Medication Sig Dispense Refill albuterol (ACCUNEB) 0.63 mg/3 mL nebulizer solution Take 1 ampule by nebulization every 6 (six) hours as needed for wheezing. buPROPion (WELLBUTRIN) 75 MG tablet cholecalciferol, vitamin D3, 1,000 unit tablet Take 1,000 Units by mouth daily. doxepin (SINEQUAN) 50 MG capsule Take 50 mg by mouth nightly as needed for sleep. DULoxetine (CYMBALTA) 60 MG capsule Take 60 mg by mouth daily. ferrous sulfate 325 (65 FE) MG tablet Take 325 mg by mouth daily with breakfast. fluticasone/umeclidin/vilanter (TRELEGY ELLIPTA INHL) Inhale . gabapentin (NEURONTIN) 100 MG capsule Take 200 mg by mouth 3 (three) times a day . levothyroxine (SYNTHROID, LEVOTHROID) 112 MCG tablet Take 112 mcg by mouth daily lisinopril (PRINIVIL,ZESTRIL) 40 MG tablet Take 40 mg by mouth daily. metFORMIN (GLUCOPHAGE) 500 MG tablet Take 500 mg by mouth 2 (two) times a day . omeprazole (PRILOSEC) 40 MG capsule Take 40 mg by mouth daily . tiZANidine (ZANAFLEX) 4 MG capsule Take 4 mg by mouth nightly. Pt takes 3 pills for a total of 12mg triheptanoin (Dojolvi) 8.3 kcal/mL Liqd Take by mouth 4 (four) times a day . albuterol (PROVENTIL HFA;VENTOLIN HFA) 90 mcg/actuation inhaler Inhale 2 puffs every 6 (six) hours as needed for wheezing. amLODIPine (NORVASC) 5 MG tablet Take 10 mg by mouth daily . fluticasone propionate (FLONASE) 50 mcg/actuation nasal spray Instill 2 (two) sprays into each nostril daily . 16 g 3 No current facility-administered medications for this visit. ROS: Review of Systems Constitutional: Positive for activity change. Negative for appetite change, fatigue and fever. HENT: Positive for congestion, postnasal drip, rhinorrhea and tinnitus. Negative for ear discharge,ear pain, hearing loss, nosebleeds, sinus pressure, sinus pain, sneezing, sore throat, trouble swallowing and voice change. Eyes: Positive for visual disturbance (glasses). Negative for pain, discharge, redness and itching. Respiratory: Positive for apnea (FELISA) and shortness of breath. Negative for cough, choking, chest tightness and wheezing. Cardiovascular: Negative for chest pain and palpitations. Gastrointestinal: Positive for nausea. Negative for vomiting. Endocrine: History of thyroid cancer with total thyroidectomy in 2015 at [facility] Musculoskeletal: Positive for arthralgias, back pain, gait problem and myalgias. Negative for neck pain and neck stiffness. Skin: Negative for color change, pallor, rash and wound. Allergic/Immunologic: Positive for environmental allergies. Negative for immunocompromised state. Neurological: Positive for dizziness, seizures and light-headedness. Negative for syncope, speech difficulty, weakness and headaches. Hematological: Negative for adenopathy. Psychiatric/Behavioral: Negative for confusion. The patient is nervous/anxious. Physical Examination: Vital Signs: BP 138/82 (BP Location: Left arm, Patient Position: Sitting, BP Cuff Size: X- large Adult) Pulse (!) 110 Ht 5' 4 Wt 105.2 kg (232 lb) SpO2 93% BMI 39.82 kg/m Physical Exam Vitals reviewed. Constitutional: General: She is not in acute distress. Appearance: She is well-developed. She is not ill-appearing or diaphoretic. HENT: Head: Normocephalic and atraumatic. No abrasion, contusion or laceration. Jaw: No tenderness, swelling or pain on movement. Right Ear: Tympanic membrane, ear canal and external ear normal. No drainage, swelling or tenderness. No middle ear effusion. No foreign body. No mastoid tenderness. Tympanic membrane is not scarred,perforated, retracted or bulging. Tympanic membrane has normal mobility. Left Ear: Tympanic membrane, ear canal and external ear normal. No drainage, swelling or tenderness. No middle ear effusion. No foreign body. No mastoid tenderness. Tympanic membrane is not scarred, perforated, retracted or bulging. Tympanic membrane has normal mobility. Nose: Septal deviation, congestion and rhinorrhea present. No nasal deformity or mucosal edema. Rhinorrhea is clear. Right Sinus: No maxillary sinus tenderness or frontal sinus tenderness. Left Sinus: No maxillary sinus tenderness or frontal sinus tenderness. Mouth/Throat: Lips: [place]. No lesions. Mouth: No lacerations or oral lesions. Dentition: Has dentures. No dental caries or dental abscesses. Pharynx: Uvula midline. No oropharyngeal exudate, posterior oropharyngeal erythema or uvula swelling. Eyes: General: No scleral icterus. Right eye: No discharge. Left eye: No discharge. Conjunctiva/sclera: Conjunctivae normal. Neck: Trachea: Phonation normal. Pulmonary: Effort: Pulmonary effort is normal. No respiratory distress. Musculoskeletal: General: Normal range of motion. Cervical back: Full passive range of motion without pain, normal range of motion and neck supple. No rigidity. Normal range of motion. Lymphadenopathy: Head: Right side of head: No submental, submandibular, tonsillar, preauricular or posterior auricular adenopathy. Left side of head: No submental, submandibular, tonsillar, preauricular or posterior auricular adenopathy. Cervical: No cervical adenopathy. Skin: General: Skin is warm and dry. Coloration: Skin is not pale. Findings: No erythema or rash. Neurological: Mental Status: She is alert and oriented to person, place, and time. Psychiatric: Attention and Perception: Attention normal. Mood and Affect: Mood normal. Mood is not anxious. Affect is not blunt. Speech: Speech normal. Behavior: Behavior normal. Behavior is cooperative. Thought Content: Thought content normal. Cognition and Memory: Cognition normal. Judgment: Judgment normal. Procedure Bilateral micro-otoscopy was used to rule out any abnormal middle ear translucent pathology. I do not appreciate any abnormal middle ear translucent pathology to either side. Bilateral tympanic membranes are intact without any perforations. There is good movement with auto insufflation. There is good light reflex to both sides. Assessment and Plan: Radha Shafer is a 61 y.o. y/o female presenting with dizziness Patient presents with concerns for dizziness that started suddenly 5-6 months ago and will occur when going from sitting to standing too quickly or with looking up at the isabelle. Was experiencing true spinning sensation that is more of an off balance sensation at this time. I did not appreciate any acute/chronic pathology on exam today. Patient denies concerns with hearing loss and reports humming sensation occasionally with episodes. There are symptoms of underlying chronic rhinitis that is not currently treated. Patient instructed to obtain OTC Loratadine and begin in combination with Flonase. Also discussed performing [place] balance exercises at home. May consider for referral to vestibular therapy in the future vs future hearing test with VNG if indicated. Patient verbalized understanding and is in agreement with plans of care. No additional questions or concerns voiced. Follow-up in 2 months or sooner with any changes or new concerns. There are no diagnoses linked to this encounter. Diagnoses and all orders for this visit: Dizzy - Ambulatory referral to ENT Positional lightheadedness Chronic rhinitis - fluticasone propionate (FLONASE) 50 mcg/actuation nasal spray; Instill 2 (two) sprays into each nostril daily . Dysfunction of Eustachian tube, unspecified laterality - fluticasone propionate (FLONASE) 50 mcg/actuation nasal spray; Instill 2 (two) sprays into each nostril daily . Chepe Yin CNP 08/04/21 documented in this [id number] NoteTherapy Diagnosis Assessed Cervical radiculopathy, acute (723.4) (M54.12) Plan Goals: Goals set and discussed today. STGs Pt will improve cervical AROM by >5 degrees from initial eval to increase ease with functional mobilitymet Pt will demonstrate 4/10 pain or less with cervical rotation in order to increase ease with driving-not met Pt will demonstrate a 10% improvement in NDI to demonstrate increased functional mobility-not met Pt will demonstrate >=50% reduction of pain on average for easier adl not met Patient to have reduction in peripheral symptoms due to improved centralization for easier adls-notmet Patient to modify environment for easier adls and work as needed for reduction of pain-not met LTGs-not met due to pain didn't change Patient to have functional ROM in all planes without compensation for easier driving Patient will demonstrate not more than 2/10 pain with normal activity for easier adls Patient to report on average a 50% decrease in average pain levels through the day for easier home chores/tasks-not met Patient to be I in knowledge and application of proper body mechanics partially met Pt will improve cervical AROM by >10 degrees from initial eval to increase ease with functional mobility-partially met Planned interventions include: education/instruction, home program, manual therapy, mechanical traction, neuromuscular re-education, self care/home management and therapeutic exercises . can try mechanical traction intermittent x 20 mins with 30 secs on/20 off with lbs as tolerated. OPERATION AGENT can also manual distraction and soft tissue work also prn. Frequency and duration: 2 time(s) a week, for 4 weeks, for 8 visits. Potential to achieve rehab goals is good Patient is going to cancel her other appts.-PT doesn't see further progress that would occur. Patient wants an MRI and reports feeling like she's getting worse. Discharge patient: Attendance inconsistent. Progress plateaued. Discharge Plan Related to Patient's Continuing Care: home program and return to physician. Assessment At this time, the patient is not reporting progress with PT. Average pain runs 5/10 not too bad but states she's just recently got up so it's not bad yet. Patient is now getting headaches and reports she's getting more headaches. Patient is going to follow up with the physician in 2 months. Currently the patient is managing pain by medical marijuana-patient reports she does her exercises every other day, the days she doesn't come in. PT doesn't know that more PT would help as patient has a basic hep-chin tucks in seated and supine, SCM and scalene stretches and cervical rotation. She reports the injections given didn't hep. PT reiterated her desire to have a MRI. Patient no showed x 2 times for PT and cancelled once. Response to treatment: decreased pain and improved knowledge and understanding of condition. Patient was able to complete today's treatment with ease. Adult Risk Screening There are no spiritual/cultural practices/values/needs that are important to know Initial Fall Risk Screening: RADHA has not fallen in the last 6 months. Her fall did not result in injury. RADHA does not have afear of falling. She does not need assistance with sitting, standing or walking. Does not need assistance walking in her home. She does not need assistance in an unfamiliar setting. The patient is not using an assistive device. Pain Scale: On a scale of 0 to 10, the patient rates the pain at 7. Please identify location of pain: headache and neck pain. Pain Quality: burning and sharp. The pain makes it hard for the patient to do these things: exercise, sleep, house work and self-care (bathing, dressing, eating). Insurance Insurance reviewed Visit number: [id number] Authorization not required after evaluation 03/1402-05-21 [place] cervicalgia/cervical radiculopathy precautions: needs inhaler, CKD stage 3. Rare deficiency cpt-2 - sugars aren't converted to proteinso patient has to eat protein and low fat Onset Date: 2020 Subjective Patient reports:. No change in status-if anything patient states she is getting worse-reports shots didn't do any relief at all-patient went home and the pain went down the right arm from shoulder to bicep to medial arm. Patient is now getting onset of headaches-patient feels this is from normally sleeping and laying on the left side which makes her hurt-the right side is ok with 1 pillow. If doesn't use pillows she still can't lay on the left. Patient does shoulder rolls also . Home program performing as directed: Partially. Precautions: none. Fall Risk: none Objective Ortho OBSERVATION: Patient appears uncomfortable sitting. Patient uses marijuana and states it helps the patient sleep at night POSTURE:wfls INTEGUMENTARY:no problems GIRTH: n/a AROM:(A), AAROM (AA), PROM (P) rotation left 50, right 70, ext 40 with pain, flexion chin to chest MMT: wfls PALPATION: defer (more content not included)... [id number] Emergency department Note * Georgie Vázquez MD - 04/14/2021 3:56 PM EDT [facility] ED Attending Note: NAME: Radha Shafer 60 y.o. CSN: [id number] PCP: Jonathan Rutherford CNP History: Chief Complaint: MUSCLE CRAMPS HPI: The history was obtained from the patient. Radha is a 60 y.o. female who presents with a chiefcomplaint of MUSCLE CRAMPS. 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 She is managed for this by Dr. Salinas at [facility]. 3 days ago she moved, and had increased muscular activity and since then has been having worsening muscle pains and cramping. She has done her best to hydrate orally but is unable to resolve the symptoms. She is concerned she could be in another episode of CPT exacerbation. She denies any discoloration of her urine so far. PMHx: Past Medical History: Diagnosis Date Anxiety Arthritis Back pain Bladder problem incontinence Cancer (HCC) thyroid Chronic pain disorder Colitis sigmoid COPD (chronic obstructive pulmonary disease) (HCC) Depression Diverticulosis Emphysema of lung (HCC) GERD (gastroesophageal reflux disease) Hepatic steatosis Hypertension Hypothyroidism Kidney disease, chronic, stage I (GFR over 89 ml/min) stage 3 Obesity Sleep apnea PMSx: Past Surgical History: Procedure Laterality Date CARDIOVASCULAR STRESS TEST CHOLECYSTECTOMY COLONOSCOPY with biopsies GALLBLADDER HYSTERECTOMY JOINT REPLACEMENT Left knee ORTHOPEDIC SURGERY r wrist surgery, left ankle, right rotator cuff ROTATOR CUFF REPAIR Right THYROIDECTOMY N/A 07/15/2015 Procedure: TOTAL THYROIDECTOMY; Surgeon: Lopez Alonso MD; Location: [facility]; Service: US ECHO TRANSTHORACIC FOLLOWUP LIMITED WRIST SURGERY Right FAM. Hx: Family History Problem Relation Age of Onset Heart disease Mother Lupus Mother Stroke Mother Arthritis Mother Heart attack Mother Heart disease Father Heart attack Father Hypertension Father Hypertension Sister Hypertension Brother Prostate cancer Brother Hypertension Brother Prostate cancer Brother Hypertension Brother Prostate cancer Brother Heart attack Maternal Grandmother Heart attack Maternal Grandfather Heart attack Paternal Grandmother Heart attack Paternal Grandfather SOC. 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 Tobacco Use Smoking status: Former Smoker Packs/day: 1.00 Years: 20.00 Pack years: 20.00 Quit date: 07/10/2013 Years since quittin.7 Smokeless tobacco: Never Used Vaping Use Vaping Use: Never used Substance and Sexual Activity Alcohol use: No Drug use: Yes Types: Marijuana Comment: currently using Sexual activity: Not on file Other Topics Concern Not on file Social History Narrative Not on file Social Determinants of Health Financial Resource Strain: Difficulty of Paying Living Expenses: Food Insecurity: Worried About Running Out of Food in the Last Year: Ran Out of Food in the Last Year: Transportation Needs: Lack of Transportation (Medical): Lack of Transportation (Non-Medical): Physical Activity: Days of Exercise per Week: Minutes of Exercise per Session: Stress: Feeling of Stress : Social Connections: Frequency of Communication with Friends and Family: Frequency of Social Gatherings with Friends and Family: Attends Voodoo Services: Active Member of Clubs or Organizations: Attends Club or Organization Meetings: Marital Status: MEDs: Previous Medications Medication Sig albuterol (ACCUNEB) 0.63 mg/3 mL nebulizer solution Take 1 ampule by nebulization every 6 (six) hours as needed for wheezing. albuterol (PROVENTIL HFA;VENTOLIN HFA) 90 mcg/actuation inhaler Inhale 2 puffs every 6 (six) hours as needed for wheezing. amLODIPine (NORVASC) 5 MG tablet Take 10 mg by mouth daily . cholecalciferol, vitamin D3, 1,000 unit tablet Take 1,000 Units by mouth daily. doxepin (SINEQUAN) 50 MG capsule Take 50 mg by mouth nightly as needed for sleep. DULoxetine (CYMBALTA) 60 MG capsule Take 60 mg by mouth daily. ferrous sulfate 325 (65 FE) MG tablet Take 325 mg by mouth daily with breakfast. fluticasone/umeclidin/vilanter (TRELEGY ELLIPTA INHL) Inhale . levothyroxine (SYNTHROID, LEVOTHROID) 112 MCG tablet Take 112 mcg by mouth daily lisinopril (PRINIVIL,ZESTRIL) 40 MG tablet Take 40 mg by mouth daily. omeprazole (PRILOSEC) 40 MG capsule Take 40 mg by mouth daily . tiZANidine (ZANAFLEX) 4 MG capsule Take 4 mg by mouth nightly. Pt takes 3 pills for a total of 12mg ALL: Allergies Allergen Reactions Penicillins Unknown and Other (See Comments) Was told as a child that she is allergic, but has never taken it to know the reaction. Childhood reaction Was told as a child that she is allergic, but has never taken it to know the reaction. ROS: Positives and pertinent negatives as per HPI. All other systems were reviewed and are negative. Physical Exam: Patient Vitals for the past 24 hrs: BP Temp Pulse Resp SpO2 Height Weight 04/14/21 1700 (!) 208/118 96 % 04/14/21 1615 94 % 04/14/21 1600 (!) 205/105 95 % 04/14/21 1545 96 % 04/14/21 1530 (!) 187/74 93 % 04/14/21 1519 (!) 185/106 98.2 F (36.8 C) (!) 106 18 95 % 04/14/21 1510 5' 5 108.9 kg (240 lb) Physical Exam Vitals and nursing note reviewed. HENT: Head: Normocephalic. Mouth/Throat: Mouth: Mucous membranes are moist. Eyes: Extraocular Movements: Extraocular movements intact. Pupils: Pupils are equal, round, and reactive to light. Cardiovascular: Rate and Rhythm: Normal rate and regular rhythm. Pulmonary: Effort: Pulmonary effort is normal. Breath sounds: Normal breath sounds. Abdominal: General: Abdomen is flat. Bowel sounds are normal. Palpations: Abdomen is soft. Musculoskeletal: General: Normal range of motion. Comments: No obvious carpopedal cramping noted. Skin: General: Skin is warm and dry. Neurological: General: No focal deficit present. Mental Status: She is oriented to person, place, and time. Psychiatric: Mood and Affect: Mood normal. Behavior: Behavior normal. Laboratory & Radiological Imaging (if done): Labs Reviewed BASIC METABOLIC PANEL - Abnormal; Notable for the following components: Result Value Glucose 112 (*) BUN 35 (*) Creatinine 1.77 (*) eGFR 30 (*) All other components within normal limits Narrative: The eGFR should be used for monitoring renal function only and not for medication dosing. URINALYSIS - Abnormal; Notable for the following components: Protein, Urine 30 (*) Blood, Urine Small (*) All other components within normal limits Narrative: Microscopic examination is performed on all urinalysis samples and only positive findings are reported. The test for blood on the chemical analytic portion of urinalysis may also be positive due to hemoglobinuria and myoglobinuria and if red blood cells are present they are quantified by microscopic examination. CPK - Abnormal; Notable for the following components: Total CK 1,936 (*) All other components within normal limits CBC WITH AUTO DIFFERENTIAL - Abnormal; Notable for the following components: MCV 79.4 (*) MCH 24.0 (*) MCHC 30.3 (*) RDW - CV 17.5 (*) All other components within normal limits MAGNESIUM LEVEL - Normal PHOSPHORUS - Normal CBC AND DIFFERENTIAL Narrative: The following orders were created for panel order CBC w/ Diff. Procedure Abnormality Status --------- ------ CBC Auto Differential[[id number]] Abnormal Final result Please view results for these tests on the individual orders. MYOGLOBIN, URINE No orders to display Procedures: Procedures ED Course / Medical Decision Making: Work-up of the patient has an elevated CPK of 1900 and elevated creatinine of 1.7, up from her previous creatinine 3 months ago of 1.4. Case is discussed with Dr. Gonzalez, junior paralegal on-call for thepatient's own physician Dr. Salinas. After going over all the labs, he feels is appropriate to discharge the patient home after fluids are finished, and to have outpatient lab testing done tomorrow to make sure that her numbers are going in the right direction. They will then follow her up in the office. An outpatient lab test has been sent for repeat CPK and chemistry at the [facility] lab system here. The patient understands to get a blood test obtained and to call Dr. Salinas's office to set up a follow-up appointment. She also agrees to call their office if she gets worse, at their suggestion, or return to the emergency department. . 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 * Zamzam Fink - 04/14/2021 2:58 PM EDT Bed: 25 Expected date: Expected time: Means of arrival: Comments: Triage PT documented in this [id number] Hospital Discharge instructions * Instructions* Georgie Vázquez MD - 04/14/2021 Continue to drink lots of water as you have been. Follow-up with Dr. Salinas. Return or call Dr. Salinas if you get worse. * Attachments The following attachments cannot be sent through Care Everywhere. * Cramp: Muscle (Cambodian) documented in this [id number] History of Present illness Narrative* At this time, the patient is not reporting progress with PT. Average pain runs 5/10 not too bad but states she's just recently got up so it's not bad yet. Patient is now getting headaches and reports she's getting more headaches. Patient is going to follow up with the physician in 2 months. Currently the patient is managing pain by medical marijuana-patient reports she does her exercises every other day, the days she doesn't come in. PT doesn't know that more PT would help as patient has a basic hep-chin tucks in seated and supine, SCM and scalene stretches and cervical rotation. She reports the injections given didn't hep. PT reiterated her desire to have a MRI. Patient no showed x 2 times for PT and cancelled once. * Response to treatment: decreased pain and improved knowledge and understanding of condition. * Patient was able to complete today's treatment with ease. [facility] Work Phone: Evaluation note* Diagnosis Inborn error of metabolism- Primary Unspecified disorder of [facility] Diagnosis Dizzy- Primary Dizziness and giddiness [facility]* Diagnosis Rectal prolapse- Primary [facility]* Diagnosis Dizzy- Primary Dizziness and giddiness Positional lightheadedness Chronic rhinitis Dysfunction of Eustachian tube, unspecified laterality [facility]* Diagnosis Screening for lung cancer- Primary Chronic obstructive pulmonary disease, unspecified COPD type (HCC) [facility] Diagnosis Screening for lung cancer- Primary Chronic obstructive pulmonary disease, unspecified COPD type (HCC) [facility] Diagnosis Hx of colonic polyps- Primary Personal history of colonic polyps Hx of colonic polyps- Primary Personal history of colonic polyps [facility] Diagnosis Hx of colonic polyps- Primary Personal history of colonic polyps Hx of colonic polyps- Primary Personal history of colonic polyps [facility]* Diagnosis Rectal prolapse [facility]* Diagnosis Rectal prolapse- Primary Rectal prolapse- Primary [facility]* Diagnosis Rectal prolapse- Primary Rectal prolapse- Primary Preoperative testing Unspecified pre-operative examination Abdominal pain, unspecified abdominal location [facility]al [facility]apse [facility]al [facility]apse- Primary [facility] Diagnosis Acute renal failure superimposed on chronic kidney disease, unspecified CKD stage, unspecified acute renal failure type (HCC) Diarrhea, unspecified type Hyperkalemia Hyperpotassemia Chronic obstructive pulmonary disease, unspecified COPD type ([facility]) Rectal bleeding Hemorrhage of rectum and anus Rectal prolapse Surgery follow-up Pain Generalized pain Non-traumatic rhabdomyolysis Chronic obstructive pulmonary disease with acute exacerbation ([facility]) 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[facility]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 KRISTIN (acute kidney injury) ([facility]) CKD (chronic kidney disease) stage 3, GFR 30-59 ml/min ([facility]) Chronic kidney disease, Stage III (moderate) [facility] COPD exacerbation ([facility])- Primary Obstructive chronic bronchitis with exacerbation Screening for lung [facility] Diagnosis Pain of upper abdomen- Primary Nausea Nausea alone Diarrhea, unspecified type Pain of upper abdomen Nausea Nausea alone Pain of upper abdomen Nausea Nausea alone [facility] Diagnosis Onset Date Resolution Status Carnitine palmitoyltransferase II deficiency chronic Insomnia chronic Low back pain chronic Neck pain chronic Peripheral arterial disease chronic Polyneuropathy chronic [facility] Work Phone: Evaluation note* Diagnosis Onset Date Resolution Status Carnitine palmitoyltransferase II deficiency chronic Insomnia chronic Low back pain chronic Neck pain chronic Peripheral arterial disease chronic Polyneuropathy chronic Acquired hypothyroidism acut e FELISA (obstructive sleep apnea) acute Recurrent falls acute Carnitine palmitoyltransferase II deficiency chronic Chronic diarrhea chronic CKD (chronic kidney disease) stage 4, GFR 15-29 ml/min chronic Polyneuropathy chronic Moderate major depression no neactive Establishing care with new doctor, encounter for noneactive Lightheadedness noneactive Essential hypertension nonea ctive COPD (chronic obstructive pulmonary disease) noneactive [facility] Work Phone: Evaluation note* Diagnosis Onset Date Resolution Status Acquired hypothyroidism acut e FELISA (obstructive sleep apnea) acute Recurrent falls acute Carnitine palmitoyltransferase II deficiency chronic Chronic diarrhea chronic CKD (chronic kidney disease) stage 4, GFR 15-29 ml/min chronic Polyneuropathy chronic Moderate major depression no neactive Establishing care with new doctor, encounter for noneactive Lightheadedness noneactive Essential hypertension nonea ctive COPD (chronic obstructive pulmonary disease) noneactive [facility] Work Phone: Evaluation note* 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 [facility] Diagnosis Onset Date Resolution Status Cervical radiculopathy acute Fatigue acute Insomnia chronic Low back pain chronic Neck pain chronic Peripheral arterial disease chronic Polyneuropathy chronic Chronic bronchitis chronic Hypoxia chronic FELISA (obstructive sleep apnea) chronic Smoking greater than 30 pack years chronic Coronary artery disease youth advocate teofilo Essential hypertension chron ic FELISA (obstructive sleep apnea) chronic Palpitations chronic Syncope chronic [facility] Work Phone: Evaluation note* Diagnosis Onset Date Resolution Status Cervical radiculopathy acute Fatigue acute Insomnia chronic Low back pain chronic Neck pain chronic Peripheral arterial disease chronic Polyneuropathy chronic Chronic bronchitis chronic Hypoxia chronic FELISA (obstructive sleep apnea) chronic Smoking greater than 30 pack years chronic Coronary artery disease youth advocate teoflio Essential hypertension chron ic FELISA (obstructive sleep apnea) chronic Palpitations chronic Syncope chronic Acquired hypothyroidism acut e Carnitine palmitoyltransferase II deficiency acute FELISA (obstructive sleep apnea) chronic Stage 3b chronic kidney disease (CKD) noneactive Moderate major depression no neactive Immunization due noneactive Chronic abdominal pain nonea ctive Ventricular tachycardia none active Essential hypertension nonea ctive COPD (chronic obstructive pulmonary disease) noneactive Screening for breast cancer noneactive [facility] Work Phone: Evaluation note* Diagnosis Onset Date Resolution Status Chronic bronchitis chronic Hypoxia chronic FELISA (obstructive sleep apnea) chronic Smoking greater than 30 pack years chronic Coronary artery disease youth advocate teofilo Essential hypertension chron ic FELISA (obstructive sleep apnea) chronic Palpitations chronic Syncope chronic Acquired hypothyroidism acut e Carnitine palmitoyltransferase II deficiency acute FELISA (obstructive sleep apnea) chronic Stage 3b chronic kidney disease (CKD) noneactive Moderate major depression no neactive Immunization due noneactive Chronic abdominal pain nonea ctive Ventricular tachycardia none active Essential hypertension nonea ctive COPD (chronic obstructive pulmonary disease) noneactive Screening for breast cancer noneactive [facility] Work Phone: Evaluation note* Diagnosis Onset Date Resolution Status Coronary artery disease youth advocate teofilo Essential hypertension chron ic FELISA (obstructive sleep apnea) chronic Palpitations chronic Syncope chronic Acquired hypothyroidism acut e Carnitine palmitoyltransferase II deficiency acute FELISA (obstructive sleep apnea) chronic Stage 3b chronic kidney disease (CKD) noneactive Moderate major depression no neactive Immunization due noneactive Chronic abdominal pain nonea ctive Ventricular tachycardia none active Essential hypertension nonea ctive COPD (chronic obstructive pulmonary disease) noneactive Screening for breast cancer noneactive [facility] Work Phone: Evaluation note* Diagnosis Pain- Primary Generalized pain [facility] Diagnosis Trigger finger of left thumb- Primary [facility] Diagnosis Onset Date Resolution Status Coronary artery disease youth advocate teofilo Essential hypertension chron ic Nonsustained ventricular tachycardia chronic Obesity chronic FELISA (obstructive sleep apnea) chronic Palpitations chronic Syncope chronic Polyneuropathy acute [facility] Work Phone: Evaluation note* Diagnosis Onset Date Resolution Status Coronary artery disease youth advocate teofilo Essential hypertension chron ic Nonsustained ventricular tachycardia chronic Obesity chronic FELISA (obstructive sleep apnea) chronic Palpitations chronic Syncope chronic Polyneuropathy acute Carnitine palmitoyltransferase II deficiency acute FELISA (obstructive sleep apnea) chronic Stage 3b chronic kidney disease (CKD) noneactive Moderate major depression no neactive Blood per rectum noneactive Mixed hyperlipidemia noneact radha Chronic abdominal pain nonea ctive Post-operative hypothyroidism noneactive Ventricular tachycardia none active Essential hypertension nonea ctive Morbid obesity with BMI of 40.0-44.9, adult noneactive COPD (chronic obstructive pulmonary disease) noneactive Polyclonal gammopathy chroni c [facility] Work Phone: Evaluation note* Diagnosis Onset Date Resolution Status Polyneuropathy acute Carnitine palmitoyltransferase II deficiency acute FELISA (obstructive sleep apnea) chronic Stage 3b chronic kidney disease (CKD) noneactive Moderate major depression no neactive Blood per rectum noneactive Mixed hyperlipidemia noneact radha Chronic abdominal pain nonea ctive Post-operative hypothyroidism noneactive Ventricular tachycardia none active Essential hypertension nonea ctive Morbid obesity with BMI of 40.0-44.9, adult noneactive COPD (chronic obstructive pulmonary disease) noneactive Polyclonal gammopathy chroni c Chronic hypoxemic respiratory failure chronic COPD (chronic obstructive pulmonary disease) chronic FELISA (obstructive sleep apnea) chronic FELISA (obstructive sleep apnea) chronic Elevated glucose noneactive Bilateral leg edema noneacti ve Chronic abdominal pain nonea ctive Post-operative hypothyroidism noneactive [facility] Work Phone: Evaluation note* Diagnosis Coronary artery disease, angina presence unspecified, unspecified vessel or lesion type, unspecified whether point hope ira or transplanted heart Cardiomyopathy, unspecified type (HCC) Sleep apnea, unspecified type Chronic obstructive pulmonary disease, unspecified COPD type ([facility]) Hypertension, unspecified type Abnormal electrocardiogram Nonspecific abnormal electrocardiogram (ECG) (EKG) Chest pain, unspecified type 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[facility]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 Rectal prolapse- Primary Chest pain- Primary Unspecified chest pain Stable angina (HCC) Other and unspecified angina pectoris Pain of upper abdomen Pain- Primary Generalized pain [facility] Diagnosis Coronary artery disease, angina presence unspecified, unspecified vessel or lesion type, unspecified whether [place] or transplanted heart Cardiomyopathy, unspecified type ([facility]) Sleep apnea, unspecified type Chronic obstructive pulmonary disease, unspecified COPD type ([facility]) Hypertension, unspecified type Abnormal electrocardiogram Nonspecific abnormal electrocardiogram (ECG) (EKG) Chest pain, unspecified type 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[facility]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 Rectal prolapse- Primary Chest pain- Primary Unspecified chest pain Stable angina (HCC) Other and unspecified angina pectoris Pain of upper abdomen Acute hypercapnic respiratory failure ([facility])- Primary Respiratory failure, unspecified chronicity, unspecified whether with hypoxia or hypercapnia ([facility]) COPD exacerbation ([facility]) Obstructive chronic bronchitis with exacerbation Cellulitis of left knee [facility] Diagnosis Coronary artery disease, angina presence unspecified, unspecified vessel or lesion type, unspecified whether [place] or transplanted heart Cardiomyopathy, unspecified type ([facility]) Sleep apnea, unspecified type Chronic obstructive pulmonary disease, unspecified COPD type ([facility]) Hypertension, unspecified type Abnormal electrocardiogram Nonspecific abnormal electrocardiogram (ECG) (EKG) Chest pain, unspecified type 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[facility]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 Rectal prolapse- Primary Chest pain- Primary Unspecified chest pain Stable angina (HCC) Other and unspecified angina pectoris Pain of upper abdomen NSVT (nonsustained ventricular tachycardia) ([facility])- Primary [facility] Diagnosis Coronary artery disease, angina presence unspecified, unspecified vessel or lesion type, unspecified whether [place] or transplanted heart Cardiomyopathy, unspecified type ([facility]) Sleep apnea, unspecified type Chronic obstructive pulmonary disease, unspecified COPD type ([facility]) Hypertension, unspecified type Abnormal electrocardiogram Nonspecific abnormal electrocardiogram (ECG) (EKG) Chest pain, unspecified type 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[facility]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 Rectal prolapse- Primary Chest pain- Primary Unspecified chest pain Stable angina (HCC) Other and unspecified angina pectoris Pain of upper abdomen Ventricular tachycardia (HCC) Paroxysmal ventricular tachycardia Palpitations NSVT (nonsustained ventricular tachycardia) (HCC) [facility] Diagnosis Coronary artery disease, angina presence unspecified, unspecified vessel or lesion type, unspecified whether [place]a or transplanted heart Cardiomyopathy, unspecified type (HCC) Sleep apnea, unspecified type Chronic obstructive pulmonary disease, unspecified COPD type (HCC) Hypertension, unspecified type Abnormal electrocardiogram Nonspecific abnormal electrocardiogram (ECG) (EKG) Chest pain, unspecified type 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 Rectal prolapse- Primary Chest pain- Primary Unspecified chest pain Stable angina (HCC) Other and unspecified angina pectoris Pain of upper abdomen COPD exacerbation (HCC)- Primary Obstructive chronic bronchitis with exacerbation COPD exacerbation (HCC) Obstructive chronic bronchitis with exacerbation Acute hypoxic respiratory failure (HCC) Acute hypercapnic respiratory failure (HCC) Nausea Nausea alone Pain of upper abdomen CKD (chronic kidney disease) stage 3, GFR 30-59 ml/min (HCC) Chronic kidney disease, Stage III (moderate) KRISTIN (acute kidney injury) ([facility]) Non-traumatic rhabdomyolysis Diarrhea, unspecified type Rectal prolapse Hx of colonic polyps Personal history of colonic polyps 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 Chest pain, unspecified type Primary hypertension Unspecified essential hypertension Chronic obstructive pulmonary disease with acute exacerbation (HCC) Obstructive sleep apnea syndrome Obstructive sleep apnea (adult) (pediatric) Pain Generalized pain Surgery follow-up Primary osteoarthritis of left hand Localized primary osteoarthritis of carpometacarpal (CMC) joint, unspecified laterality [facility] Diagnosis Coronary artery disease, angina presence unspecified, unspecified vessel or lesion type, unspecified whether [place]a or transplanted heart Cardiomyopathy, unspecified type (HCC) Sleep apnea, unspecified type Chronic obstructive pulmonary disease, unspecified COPD type (HCC) Hypertension, unspecified type Abnormal electrocardiogram Nonspecific abnormal electrocardiogram (ECG) (EKG) Chest pain, unspecified type 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[facility]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 Rectal prolapse- Primary Chest pain- Primary Unspecified chest pain Stable angina (HCC) Other and unspecified angina pectoris Pain of upper abdomen Ventricular tachycardia (HCC)- Primary Paroxysmal ventricular tachycardia Palpitations NSVT (nonsustained ventricular tachycardia) (HCC) [facility] Diagnosis Coronary artery disease, angina presence unspecified, unspecified vessel or lesion type, unspecified whether [place]a or transplanted heart Cardiomyopathy, unspecified type (HCC) Sleep apnea, unspecified type Chronic obstructive pulmonary disease, unspecified COPD type (HCC) Hypertension, unspecified type Abnormal electrocardiogram Nonspecific abnormal electrocardiogram (ECG) (EKG) Chest pain, unspecified type 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[facility]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 Rectal prolapse- Primary Chest pain- Primary Unspecified chest pain Stable angina (HCC) Other and unspecified angina pectoris Pain of upper abdomen SOB (shortness of breath)- Primary Shortness of breath Acute on chronic respiratory failure, unspecified whether with hypoxia or hypercapnia ([facility]) Acute on chronic congestive heart failure, unspecified heart failure type ([facility]) SIRS (systemic inflammatory response syndrome) ([facility]) Systemic inflammatory response syndrome, unspecified Pneumonia Pneumonia, organism unspecified CKD (chronic kidney disease) Chronic kidney disease, unspecified Acute exacerbation of chronic obstructive pulmonary disease (COPD) ([facility]) Obstructive chronic bronchitis with exacerbation Elevated CPK Other nonspecific abnormal serum enzyme levels 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[facility]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 Myalgia Unspecified myalgia and myositis COPD exacerbation ([facility]) Obstructive chronic bronchitis with exacerbation [facility] Diagnosis Coronary artery disease, angina presence unspecified, unspecified vessel or lesion type, unspecified whether point hope ira or transplanted heart Cardiomyopathy, unspecified type (HCC) Sleep apnea, unspecified type Chronic obstructive pulmonary disease, unspecified COPD type ([facility]) Hypertension, unspecified type Abnormal electrocardiogram Nonspecific abnormal electrocardiogram (ECG) (EKG) Chest pain, unspecified type 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[facility]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 Rectal prolapse- Primary Chest pain- Primary Unspecified chest pain Stable angina (HCC) Other and unspecified angina pectoris Pain of upper abdomen NSVT (nonsustained ventricular tachycardia) ([facility]) [facility] of [facility]* (Pt. states she is having trouble breathing, she is trying to get oxygen for home. Pt. sees on Mo ). Pt. is breathing fine during session, on room air. Held some exercises and focused on manualtherapies and mechanical traction this date d/t pain levels/discomfort. Relief following session, patient will monitor sx.'s after session with adjustments made in exercises this date. * Response to treatment: decreased pain. * Patient was able to complete today's treatment with some difficulty. Rehab Services-[facility] Work Phone: Hospital Discharge instructions* Attachments The following attachments cannot be sent through Care Everywhere. * High-Fiber Diet (Cambodian) documented in this encounterOhioHealthReason for referral (narrative)No reason for referral information availableWUniversity [facility] Work Phone: Reason for visit Narrative* Auth/Cert Specialty Diagnoses / Procedures Referred By Contac t Referred To Contact Diagnoses Rectal prolapse Rectal prolapse [K62.3] Procedures SC EXCIS RECTAL PROLAPSE,PERINEAL Jada Vargas MD [address] [facility] [address] [place] [address] Referral ID Status Reason Start Date Expiration Date Visits Re quested Visits Authorized [id number] 03/07/2022 1 1 [facility] Assessments Diagnosis Surgery follow-up - Primary Diagnosis Coronary artery disease, angina presence unspecified, unspecified vessel or lesion type, unspecified whether point hope ira or transplanted heart Cardiomyopathy, unspecified type (HCC) Sleep apnea, unspecified type Chronic obstructive pulmonary disease, unspecified COPD type (HCC) Hypertension, unspecified type Abnormal electrocardiogram Nonspecific abnormal electrocardiogram (ECG) (EKG) Chest pain, unspecified type 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 Diagnosis Cervical spine disease- Primary Unspecified musculoskeletal disorders and symptoms referable to neck Osteoarthritis of spine with radiculopathy, lumbar region Myopathy Myopathy, unspecified Diagnosis Right hip pain Pain in joint, pelvic region and thigh Diagnosis Abnormal electrocardiogram Nonspecific abnormal electrocardiogram (ECG) (EKG) Cardiomyopathy, unspecified type (HCC) Hypertension, unspecified type Diagnosis Claudication of lower extremity (HCC) Diagnosis Chronic right shoulder pain Pain in joint, shoulder region Diagnosis Pain Generalized pain Diagnosis Right knee pain, unspecified chronicity- Primary Diagnosis Polyneuropathy Unspecified hereditary and idiopathic peripheral neuropathy Diagnosis Right leg pain- Primary Pain in soft tissues of limb Chronic pain syndrome Bursitis, unspecified site Diagnosis Primary osteoarthritis of right knee- Primary Summary Purpose Family History No Family History Records Found Relationship Condition Age at Onset Recorded Date/T ekta mother Cerebrovascular accident (CVA) Unknown Cardiac disease Unknown Arthritis Unknown Autoimmune disorder Unknown father Myocardial infarction Unknown Hypertension Unknown brother Malignant neoplasm of colon Unknown Relationship Condition Age at Onset Recorded Date/T ekta mother Cerebrovascular accident (CVA) Unknown Cardiac disease Unknown Arthritis Unknown Lupus Unknown father Myocardial infarction Unknown Hypertension Unknown brother Malignant neoplasm of colon Unknown brother Malignant neoplasm Unknown sister Seizures Unknown Relationship Condition Age at Onset Recorded Date/T ekta mother Cerebrovascular accident (CVA) Unknown Cardiac disease Unknown Arthritis Unknown Lupus Unknown father Myocardial infarction Unknown Hypertension Unknown brother Malignant neoplasm of colon Unknown brother Malignant neoplasm Unknown sister Seizures Unknown grandfather Myocardial infarction Unknown grandmother Myocardial infarction Unknown Advance Directives No Advanced Directives Records Found Date Activated Date Inactivated Comments 09/02/2024 1:03 PM 09/03/2024 9:50 PM Date Activated Date Inactivated Comments 09/24/2022 3:56 AM 09/27/2022 8:25 PM Date Activated Date Inactivated Comments 06/21/2022 2:03 PM 06/29/2022 4:39 PM Date Activated Date Inactivated Comments 03/30/2022 7:25 PM 04/04/2022 2:07 PM Date Activated Date Inactivated Comments 07/15/2015 4:39 PM 07/16/2015 5:24 PM Documents on File Type Date Recorded Patient Mold Filler Expl anation Advance Directives and Living Will Latest Code Status on File Code Status Date Activated Date Inactivated Comments Full Code 07/15/2015 4:39 PM 07/16/2015 5:24 PM Documents on File Type Date Recorded Patient Mold Filler Expl anation Advance Directives and Livin g Will 04/10/2019 12:40 PM Documents on File Type Date Recorded Patient Mold Filler Expl anation Advance Directives and Livin g Will 05/07/2019 2:35 PM Documents on File Type Date Recorded Patient Mold Filler Expl anation Advance Directives and Livin g Will 05/15/2020 12:00 AM Documents on File Type Date Recorded Patient Mold Filler Expl anation Advance Directives and Livin g Will 09/15/2020 12:00 AM Latest Code Status on File Code Status Date Activated Date Inactivated Comments Full Code 07/15/2015 4:39 PM 07/16/2015 5:24 PM Documents on File Type Date Recorded Patient Mold Filler Expl anation Advance Directives and Livin g Will 11/02/2020 1:59 PM Documents on File Type Date Recorded Patient Mold Filler Expl anation Advance Directives and Livin g Will 11/09/2020 12:00 AM Documents on File Type Date Recorded Patient Mold Filler Expl anation Advance Directives and Livin g Will 11/09/2020 12:00 AM Documents on File Type Date Recorded Patient Mold Filler Expl anation Advance Directives and Livin g Will 05/07/2019 2:35 PM Documents on File Type Date Recorded Patient Mold Filler Expl anation Advance Directives and Livin g Will 04/14/2021 3:22 PM Documents on File Type Date Recorded Patient Mold Filler Expl anation Advance Directives and Livin g Will 05/30/2021 8:35 PM Documents on File Type Date Recorded Patient Mold Filler Expl anation Advance Directives and Livin g Will 05/30/2021 8:35 PM Documents on File Type Date Recorded Patient Mold Filler Expl anation Advance Directives and Livin g Will 12/29/2021 3:40 PM Documents on File Type Date Recorded Patient Mold Filler Expl anation Advance Directives and Livin g Will 12/29/2021 3:40 PM Documents on File Type Date Recorded Patient Mold Filler Expl anation Advance Directives and Livin g Will 02/25/2022 3:40 PM Documents on File Type Date Recorded Patient Mold Filler Expl anation Advance Directives and Livin g Will 03/04/2022 3:00 PM Documents on File Type Date Recorded Patient Mold Filler Expl anation Advance Directives and Livin g Will 03/04/2022 3:00 PM Latest Code Status on File Code Status Date Activated Date Inactivated Comments Full Code 03/30/2022 7:25 PM 04/04/2022 2:07 PM Full Code 07/15/2015 4:39 PM 07/16/2015 5:24 PM Latest Code Status on File Date Activated Date Inactivated Comments 06/21/2022 2:03 PM 06/29/2022 4:39 PM Full Code Date Activated Date Inactivated Comments 03/30/2022 7:25 PM 04/04/2022 2:07 PM Full Code Date Activated Date Inactivated Comments 07/15/2015 4:39 PM 07/16/2015 5:24 PM Latest Code Status on File Date Activated Date Inactivated Comments 06/21/2022 2:03 PM 06/29/2022 4:39 PM Full Code Date Activated Date Inactivated Comments 03/30/2022 7:25 PM 04/04/2022 2:07 PM Full Code Date Activated Date Inactivated Comments 07/15/2015 4:39 PM 07/16/2015 5:24 PM Latest Code Status on File Code Status Date Activated Date Inactivated Comments Full Code 09/24/2022 3:56 AM 09/27/2022 8:25 PM Code Status History Code Status Date Activated Date Inactivated Comments Full Code 06/21/2022 2:03 PM 06/29/2022 4:39 PM Full Code 03/30/2022 7:25 PM 04/04/2022 2:07 PM Full Code 07/15/2015 4:39 PM 07/16/2015 5:24 PM Date Activated Date Inactivated Comments 09/24/2022 3:56 AM 09/27/2022 8:25 PM Date Activated Date Inactivated Comments 06/21/2022 2:03 PM 06/29/2022 4:39 PM Date Activated Date Inactivated Comments 03/30/2022 7:25 PM 04/04/2022 2:07 PM Date Activated Date Inactivated Comments 07/15/2015 4:39 PM 07/16/2015 5:24 PM Date Activated Date Inactivated Comments 09/02/2024 1:03 PM Date Activated Date Inactivated Comments 09/02/2024 1:03 PM 09/03/2024 9:50 PM Date Activated Date Inactivated Comments 09/24/2022 3:56 AM 09/27/2022 8:25 PM Date Activated Date Inactivated Comments 06/21/2022 2:03 PM 06/29/2022 4:39 PM Date Activated Date Inactivated Comments 03/30/2022 7:25 PM 04/04/2022 2:07 PM Date Activated Date Inactivated Comments 07/15/2015 4:39 PM 07/16/2015 5:24 PM Date Activated Date Inactivated Comments 09/21/2024 10:18 PM 09/25/2024 4:24 PM Date Activated Date Inactivated Comments 09/02/2024 1:03 PM 09/03/2024 9:50 PM Date Activated Date Inactivated Comments 09/24/2022 3:56 AM 09/27/2022 8:25 PM Date Activated Date Inactivated Comments 06/21/2022 2:03 PM 06/29/2022 4:39 PM Date Activated Date Inactivated Comments 03/30/2022 7:25 PM 04/04/2022 2:07 PM Date Activated Date Inactivated Comments 09/21/2024 10:18 PM 09/25/2024 4:24 PM Date Activated Date Inactivated Comments 09/02/2024 1:03 PM 09/03/2024 9:50 PM Date Activated Date Inactivated Comments 09/24/2022 3:56 AM 09/27/2022 8:25 PM Date Activated Date Inactivated Comments 06/21/2022 2:03 PM 06/29/2022 4:39 PM Date Activated Date Inactivated Comments 03/30/2022 7:25 PM 04/04/2022 2:07 PM Advance Directive Response Recorded Date/ Time Living Will No June 12, 2024 9:25pm Do you have a Healthcare Power of Clarity Developer? No June 12, 2024 9:25pm Living Will No January 01 5:37pm Do you have a Healthcare Power of Clarity Developer? No January 01, 2025 5:37pm Date Activated Date Inactivated Comments 02/13/2025 8:20 PM 02/18/2025 5:39 PM Date Activated Date Inactivated Comments 09/21/2024 10:18 PM 09/25/2024 4:24 PM Date Activated Date Inactivated Comments 09/02/2024 1:03 PM 09/03/2024 9:50 PM Date Activated Date Inactivated Comments 09/24/2022 3:56 AM 09/27/2022 8:25 PM Date Activated Date Inactivated Comments 06/21/2022 2:03 PM 06/29/2022 4:39 PM Date Activated Date Inactivated Comments 02/13/2025 8:20 PM 02/18/2025 5:39 PM Date Activated Date Inactivated Comments 09/21/2024 10:18 PM 09/25/2024 4:24 PM Date Activated Date Inactivated Comments 09/02/2024 1:03 PM 09/03/2024 9:50 PM Date Activated Date Inactivated Comments 09/24/2022 3:56 AM 09/27/2022 8:25 PM Date Activated Date Inactivated Comments 06/21/2022 2:03 PM 06/29/2022 4:39 PM Advance Directive Response Recorded Date/ Time Living Will No June 12, 2024 9:25pm Do you have a Healthcare Power of Clarity Developer? No June 12, 2024 9:25pm Reason for Referral Status Reason Specialty Diagnoses / Procedures Referred By Contact Referred To Contact Pending Review Cardiology Diagnoses Abnormal electrocardiogram Cardiomyopathy, unspecified type (HCC) Hypertension, unspecified type Procedures Echocardiogram complete Whitley Martinez MD [address] [place] [address] Status Reason Specialty Diagnoses / Procedures Referre d By Contact Referred To Contact Closed Diagnoses Myopathy Procedures MRI LONG BONE NEUROGRAPHY LOWER EXTREMITY LEFT Brittany Rushing MD [address] [place] [address] Status Reason Specialty Diagnoses / Procedures Referre d By Contact Referred To Contact Closed Diagnoses Osteoarthritis of spine with radiculopathy, lumbar region Procedures MRI SPINE LUMBAR WITHOUT CONTRAST Brittany Rushing MD [address] [place] [address] Status Reason Specialty Diagnoses / Procedures Referre d By Contact Referred To Contact Closed Diagnoses Cervical spine disease Procedures MRI SPINE CERVICAL WITHOUT CONTRAST Brittany Rushing MD [address] [place] [address] Status Reason Specialty Diagnoses / Procedures Referre d By Contact Referred To Contact Closed Radiology Diagnoses Right hip pain Procedures MR Hip Right Without Contrast Rusty Dozier MD [address] [place] [address] Status Reason Specialty Diagnoses / Procedures Referre d By Contact Referred To Contact Closed Cardiology Diagnoses Abnormal electrocardiogram Cardiomyopathy, unspecified type (HCC) Hypertension, unspecified type Procedures Echocardiogram complete Whitley Martinez MD [address] [place] [address] Status Reason Specialty Diagnoses / Procedures Referre d By Contact Referred To Contact Closed Cardiology Diagnoses Claudication of lower extremity (HCC) Procedures Ultrasound ankle / brachial indices extremity complete Elana Pena, DO [address] [place] [address] Specialty Diagnoses / Procedures Referred By Contac t Referred To Contact Otolaryngology Diagnoses Dizzy WilfridlingerJonathan, STEAM TENDER [address] [place] [address] Alan Saba MD [address] [place] [id number] Referral ID Status Reason Start Date Expiration Date V isits Requested Visits Authorized [id number] Pending Review 07/22/2021 07/22/2022 1 1 Specialty Diagnoses / Procedures Referred By Contac t Referred To Contact General Surgery Diagnoses Rectal prolapse Jonathan Rutherford, STEAM TENDER [address] [place] [address] Jada Vargas MD [address] [place] [address] Referral ID Status Reason Start Date Expiration Date V isits Requested Visits Authorized [id number] Pending Review 07/29/2021 07/29/2022 1 1 Specialty Diagnoses / Procedures Referred By Contac t Referred To Contact Radiology Diagnoses Screening for lung cancer Chronic obstructive pulmonary disease, unspecified COPD type (HCC) Procedures CT Lung Cancer Screening Estrada Garcia MD [address] [place] [id number] Referral ID Status Reason Start Date Expiration Date V isits Requested Visits Authorized [id number] New Request 12/30/2021 12/30/2022 1 1 Specialty Diagnoses / Procedures Referred By Contac t Referred To Contact Cardiology Diagnoses Rectal prolapse Preoperative testing Procedures ECG 12 Lead Jada Vargas MD [id number] [place] [address] Referral ID Status Reason Start Date Expiration Date V isits Requested Visits Authorized [id number] Authorized 03/08/2022 03/08/2023 1 1 Specialty Diagnoses / Procedures Referred By Contac t Referred To Contact Radiology Diagnoses Screening for lung cancer Personal history of nicotine dependence Procedures CT Lung Cancer Screening Estrada Garcia MD [address] [place] [id number] Referral ID Status Reason Start Date Expiration Date V isits Requested Visits Authorized [id number] New Request 01/05/2023 01/05/2024 1 1 Instructions * Patient Instructions* Hayley Glez RN - 04/05/2019 2:23 PM EDT .How to contact your Care Team: Provider: Whitley Martinez MD [facility] Nurse: Hayley Glez RN In case of an emergency please call 911. REFILLS: When in need for refills please call your care team or the office at [phone]. Please include medication name, pharmacy name, and specify 30-day or 90-day supply. Please check with your pharmacy within 24 hours of request for your refill. You must follow up as directed to continue current refills. Thank you! documented in this encounter History of Present Illness * Whitley Martinez MD - 04/05/2019 2:25 PM EDT OFFICE CONSULTATION NOTE [facility] [address] [facility] [address] [facility] [address] Physicians: Elana Pena DO (Family); Oscar Vinson MD (Referring) Subjective: Radha Shafer is a 58 y.o. female seen in the office today for Establish Care (CAD & cardiomyopathy ); Chest Pain (sharp pain in middle of the chest ); Shortness of Breath (w/ exertion pt states she is using cpap machine at night ); and Medication Problem (Pt did not take any of her medications this morning ) . HPI: The patient is a 58-year-old female with a past medical history significant for thyroid disease, obstructive sleep apnea for which she is variably compliant with CPAP therapy, chronic pain, and severe COPD. She also has a genetic disorder called CPT2 deficiency. She is followed at [facility] for this. The patient does note anterior chest discomfort on a regular basis. It is sharp and exacerbated by deep breathing. It lasts several seconds and resolve spontaneously. She denies any prior cardiac history. She had a SPECT 10 months ago that did not demonstrate any evidence of ischemia. She denies any orthopnea, paroxysmal nocturnal dyspnea, syncope, or near syncope. She does have dyspnea on exertion. This is a chronic issue. Assessment & Plan: Hypertension Her blood pressure is mildly elevated in the office today. I have asked her to check her blood pressures at home. She may benefit from advancement of her antihypertensive regimen. COPD (chronic obstructive pulmonary disease) ([facility]) She is followed by pulmonology. Sleep apnea She is inconsistently compliant with CPAP therapy. I explained to her that given her underlying severe lung disease, she should wear her CPAP as directed. She was warned. Chest pain The patient has atypical chest pain. It is pleuritic. She had a SPECT 10 months ago that did not demonstrate ischemia. This is noncardiac. Continue to observe. 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[facility]) I have ordered an echocardiogram to rule out cardiomyopathy. Her last echocardiogram was 7 years ago and showed normal to hyperdynamic LV systolic function. Those results will be forthcoming. If it is unremarkable, I will see her again in 1 year. Follow Up Ordered: Return in about 1 year (around 04/05/2020). Histories: Past Medical History: Diagnosis Date Anxiety Arthritis Back pain Bladder problem incontinence Cancer ([facility]) thyroid Chronic pain disorder Colitis sigmoid COPD (chronic obstructive pulmonary disease) ([facility]) Depression Diverticulosis Emphysema of lung (HCC) GERD (gastroesophageal reflux disease) Hepatic steatosis Hypertension Hypothyroidism Kidney disease, chronic, stage I (GFR over 89 ml/min) stage 3 Obesity Sleep apnea Past Surgical History: Procedure Laterality Date CARDIOVASCULAR STRESS TEST CHOLECYSTECTOMY COLONOSCOPY with biopsies GALLBLADDER HYSTERECTOMY JOINT REPLACEMENT Left knee ORTHOPEDIC SURGERY r wrist surgery, left ankle, right rotator cuff THYROIDECTOMY N/A 07/15/2015 Procedure: TOTAL THYROIDECTOMY; Surgeon: Lopez Alonso MD; Location: [facility]; Service: US ECHO TRANSTHORACIC FOLLOWUP LIMITED Family History Problem Relation Age of Onset Heart disease Mother Lupus Mother Stroke Mother Arthritis Mother Heart attack Mother Heart disease Father Heart attack Father Hypertension Father Hypertension Sister Hypertension Brother Prostate cancer Brother Hypertension Brother Prostate cancer Brother Hypertension Brother Prostate cancer Brother Heart attack Maternal Grandmother Heart attack Maternal Grandfather Heart attack Paternal Grandmother Heart attack Paternal Grandfather Social History Tobacco Use Smoking status: Former Smoker Packs/day: 1.00 Years: 20.00 Pack years: 20.00 Last attempt to quit: 07/10/2013 Years since quittin.7 Smokeless tobacco: Never Used Substance Use Topics Alcohol use: No Drug use: Yes Types: Marijuana Comment: currently using Current Outpatient Medications Medication Sig Dispense Refill albuterol (ACCUNEB) 0.63 mg/3 mL nebulizer solution Take 1 ampule by nebulization every 6 (six) hours as needed for wheezing. albuterol (PROVENTIL HFA;VENTOLIN HFA) 90 mcg/actuation inhaler Inhale 2 puffs every 6 (six) hours as needed for wheezing. amLODIPine (NORVASC) 5 MG tablet Take 10 mg by mouth daily . cholecalciferol, vitamin D3, 1,000 unit tablet Take 1,000 Units by mouth daily. doxepin (SINEQUAN) 50 MG capsule Take 50 mg by mouth nightly as needed for sleep. DULoxetine (CYMBALTA) 60 MG capsule Take 60 mg by mouth daily. ferrous sulfate 325 (65 FE) MG tablet Take 325 mg by mouth daily with breakfast. fluticasone/umeclidin/vilanter (TRELEGY ELLIPTA INHL) Inhale . levothyroxine (SYNTHROID, LEVOTHROID) 112 MCG tablet Take 112 mcg by mouth daily lisinopril (PRINIVIL,ZESTRIL) 40 MG tablet Take 40 mg by mouth daily. omeprazole (PRILOSEC) 40 MG capsule Take 40 mg by mouth daily . tiZANidine (ZANAFLEX) 4 MG capsule Take 4 mg by mouth nightly. Pt takes 3 pills for a total of 12mg No current facility-administered medications for this visit. Allergies Allergen Reactions Naproxen Penicillins Unknown Was told as a child that she is allergic, but has never taken it to know the reaction. Childhood reaction Review of Systems Constitution: Negative for diaphoresis, malaise/fatigue, weight gain and weight loss. HENT: Negative for hearing loss, nosebleeds and tinnitus. Eyes: Negative for blurred vision and visual disturbance. Cardiovascular: Positive for chest pain (Pleuritic) and dyspnea on exertion (Chronic). Negative forclaudication, cyanosis, irregular heartbeat, leg swelling, near-syncope, orthopnea, palpitations, paroxysmal nocturnal dyspnea and syncope. Respiratory: Positive for shortness of breath. Negative for hemoptysis and snoring. Endocrine: Negative for cold intolerance and heat intolerance. Hematologic/Lymphatic: Does not bruise/bleed easily. Skin: Negative for flushing, poor wound healing and rash. Musculoskeletal: Positive for back pain and myalgias. Negative for muscle weakness. Gastrointestinal: Negative for abdominal pain, change in bowel habit, melena, nausea and vomiting. Genitourinary: Negative for decreased libido and hematuria. Neurological: Negative for loss of balance and numbness. Psychiatric/Behavioral: Negative for memory loss. The patient is not nervous/anxious. Overview of Problems Addressed: Problem Sleep Apnea Copd (Chronic Obstructive Pulmonary Disease) (Hcc) Hypertension Chest Pain Cpt2 Deficiency ([facility]) Objective: Physical Exam Constitutional: She is oriented to person, place, and time. She appears well- developed and well-nourished. HENT: Head: Normocephalic. Eyes: Pupils are equal, round, and reactive to light. Conjunctivae and EOM are normal. No scleral icterus. Neck: Normal range of motion. Neck supple. No JVD present. No tracheal deviation present. No thyromegaly present. Cardiovascular: Normal rate, regular rhythm, S1 normal, S2 normal, normal heart sounds and intact distal pulses. Exam reveals no friction rub. No murmur heard. Pulmonary/Chest: Breath sounds normal. No respiratory distress. She has no wheezes. She has no rales. Diminished air entry but quite clear. Abdominal: Soft. Bowel sounds are normal. She exhibits no distension and no mass. There is no hepatosplenomegaly. There is no tenderness. Moderately obese. Musculoskeletal: Normal range of motion. She exhibits no edema. Lymphadenopathy: She has no cervical adenopathy. Neurological: She is alert and oriented to person, place, and time. Skin: Skin is warm and dry. Psychiatric: She has a normal mood and affect. Her behavior is normal. Vitals: Vitals: 04/05/19 1335 BP: 145/76 BP Location: Left arm Patient Position: Sitting BP Cuff Size: X-large Adult Pulse: 79 SpO2: 93% Weight: 93.4 kg (206 lb) Height: 5' 5 Orders Placed This Encounter ECG 12 Lead Echocardiogram complete omeprazole (PRILOSEC) 40 MG capsule fluticasone/umeclidin/vilanter (TRELEGY ELLIPTA INHL) Thank you for allowing me to assist you in the cardiovascular care of this patient. Please don't hesitate to contact me if you have any questions regarding these thoughts. Whitley Martinez MD documented in this encounter* Rivas Jules MD - 09/15/2020 3:05 PM EST Associated Order(s): LG Jt Injection/Arthrocentesis: R subacromial bursa Post-Procedure Diagnose(s): Chronic right shoulder pain LG Jt Injection/Arthrocentesis: R subacromial bursa Performed by: Rivas Jules MD Authorized by: Rivas Jules MD CPT 41540 - Large Joint Arthrocentesis: Consent given by: Patient Timeout performed at: 09/15/2020 3:05 PM Physician or proceduralist has discussed critical or nonroutine steps, procedure duration and anticipated blood loss: Yes Supporting Documentation: Indications: Pain Procedure Details: Location: Shoulder Site: R subacromial bursa Needle size: 22 G Medications: 40 mg methylPREDNISolone acetate 40 mg/mL Anesthetic used: Lidocaine 1% * Rivas Jules MD - 09/15/2020 3:04 PM EST [facility] [address] ([address]) [facility] [address] [facility] [id number] Radha Shafer is a 60 y.o. female being seen today, 09/15/20, Chief Complaint Patient presents with Right Shoulder - Pain [chief complaint] right shoulder pain HPI Dictation: Héctor a history of prior rotator cuff surgery right several years ago. She indicates in July she tripped and fell injuring her right shoulder has had persistent pain since with x-rays today showing a single metallic anchor consistent with prior rotator cuff repair otherwise unremarkable x-rays [hpi] Physical Exam Dictation: [PE] exam restricted abduction forward flexion with anterior lateral shoulder pain rating to the deltoid insertion Assessment and Plan Dictation: [AP possible recurrent rotator cuff tear plan I did perform a subacromial injection recommend physical therapy I will see her back when he finishes PT if not improved will obtain MRI I have reviewed all relevant histories, medications, allergies, and problem list items with Radha Lu during this visit. Review of Systems Constitutional: Negative for chills and fever. HENT: Negative for congestion. Respiratory: Negative for shortness of breath. Cardiovascular: Negative for chest pain. Gastrointestinal: Negative for diarrhea, nausea and vomiting. Neurological: Negative for headaches. Psychiatric/Behavioral: Negative for behavioral problems. BP 147/82 Pulse (!) 120 Resp 18 Ht 5' 5 Wt 93.4 kg (206 lb) BMI 34.28 kg/m Imaging: No results found. 1. Chronic right shoulder pain Ambulatory referral to Orthopedics Return in about 4 weeks (around 10/13/2020). Rivas Jules MD documented in this encounter* Eugenia Conte MD - 11/24/2020 9:43 AM EST [facility] - Neurology [address] [place] [address] Nerve Conduction & EMG Report Patient: Radha Shafer Sex: Female Date of : 1960 Visit Date: 11/24/2020 08:24 Age: 60 Years Examining MD: Eugenia Conte MD Referred by: Dr. Dozier Temperature: 32.2 Current Height: 5 feet 5 inch Referred for: BLE numbness. + LBP. No DM. Plan: This study is design to evaluate for radiculopathy, plexopathy, entrapment neuropathy or polyneuropathy. Indication, risk, side effects, complications were explained. Patient agree to proceed. Patient was instructed to clean the puncture site with soap and water and put some ice pack for bruising. EMG Summary: The right peroneal motor nerve conduction study showed normal latency, reduced amplitude and conduction velocity. The left peroneal motor nerve conduction study showed normal latency andamplitude with reduced conduction velocity. Bilateral tibial motor nerve conduction study showed normal latency, reduced amplitude on the rightside and decreased conduction velocity on the right. Bilateral sural and superficial peroneal sensory nerve conduction study showed absent responses. Bilateral tibial H reflexes were absent. Needle EMG of the muscle tested showed no abnormal spontaneous activity. There are large amplitude,long duration motor unit action potentials with slight reduced recruitment pattern seen on bilateral tibialis anterior, medial gastrocnemius, and abductor hallucis brevis. The rest of the muscle tested showed normal motor unit action potentials and recruitment patterns. Impression: This is an abnormal EMG. There is electrodiagnostic evidence suggestive of a chronic, diffuse predominantly axonal sensorimotor polyneuropathy. NO clear electrodiagnostic evidence of a bilateral lumbosacral radiculopathy, or plexopathy at this time. Eugenia Conte MD Diplomate, ABPN, NBPAS Clinical Neurophysiology, Neurology, Vascular Neurology and Sleep Medicine [place], [place] [phone] Nota bene: Portions of this chart was created using [employer] (formerly [employer]) voice recognition software. Occasional wrong-word or sound-like substitutions may have occurred due to inherent limitations of the voice recognition software. Please read the chart carefully and recognize, using context, where the substitutions have occurred. Motor NCS Nerve / Sites Muscle Latency Amplitude Distance Velocity ms mV cm m/s R Deep peroneal (Fibular) - EDB Ankle EDB 6.40 1.7 8.5 Fib Head EDB 13.73 2.2 28.5 38.9 Knee EDB 15.35 2.1 7 43.1 L Deep peroneal (Fibular) - EDB Ankle EDB 5.35 2.1 8.5 Fib Head EDB 13.27 2.1 30 37.9 Knee EDB 14.94 2.0 7 42.0 R Tibial - AH Ankle AH 4.92 2.2 8 Knee AH 14.79 1.0 37.5 38.0 L Tibial - AH Ankle AH 4.60 5.9 8 Knee AH 13.54 2.5 38 42.5 Sensory NCS Nerve / Sites Peak Amp Amp.2-3 Distance Velocity ms V V cm m/s R Sural - Lat Mall Calf NR NR NR 14 NR L Sural - Lat Mall Calf NR NR NR 14 NR R Superficial peroneal - Ankle Lat leg NR NR NR 14 NR L Superficial peroneal - Ankle Lat leg NR NR NR 14 NR H Reflex Nerve H Lat ms R Tibial - Soleus 0.00 L Tibial - Soleus 0.00 EMG Summary Table Spontaneous Activity Amplitude Duration Recruitment Polyphasia Comment Muscle Ins Act Fib PSW Fasc - - - - - L. Vastus lateralis Normal 0 0 0 Normal Normal Normal Normal Normal L. Semitendinosus Normal 0 0 0 Normal Normal Normal Normal Normal L. Tibialis anterior Normal 0 0 0 Increased Increased Sl Decr L. Gastrocnemius (Medial head) Normal 0 0 0 Increased Increased Sl Decr L. Abductor hallucis Normal 0 0 0 Increased Increased Sl Decr L. Lumbar paraspinals Normal 0 0 0 Normal Normal Normal Normal Normal R. Vastus lateralis Normal 0 0 0 Normal Normal Normal Normal Normal R. Semitendinosus Normal 0 0 0 Normal Normal Normal Normal Normal R. Tibialis anterior Normal 0 0 0 Increased Increased Sl Decr R. Gastrocnemius (Medial head) Normal 0 0 0 Increased Increased Sl Decr R. Abductor hallucis Normal 0 0 0 Increased Increased Sl Decr R. Lumbar paraspinals Normal 0 0 0 Normal Normal Normal Normal Normal documented in this encounter* Flori Rodrigues CNP - 11/09/2020 10:30 AM EST Associated Order(s): LG Jt Injection/Arthrocentesis: R knee Post-Procedure Diagnose(s): Primary osteoarthritis of right knee LG Jt Injection/Arthrocentesis: R knee Performed by: Flori Rodrigues CNP Authorized by: Flori Rodrigues CNP CPT 93205 - Large Joint Arthrocentesis: Consent given by: Patient Time out: Immediately prior to the procedure a time out was called Physician or proceduralist has discussed critical or nonroutine steps, procedure duration and anticipated blood loss: Yes Supporting Documentation: Indications: Pain Procedure Details: Location: Knee Site: R knee Prep: patient was prepped and draped in usual sterile fashion Needle size: 22 G Approach: Anterolateral Medications: 1 mL dexamethasone 4 mg/mL, 1 mL triamcinolone acetonide 40 mg/mL Anesthetic used: Bupivacaine 0.5% and Lidocaine 1% Anesthetic amount (mL): 4 Patient tolerance: Patient tolerated the procedure well with no immediate complications * Flori Rodrigues CNP - 11/09/2020 10:00 AM EST Radha Alexanderrayne 1960 CC: 60 y.o. is a she with Chief Complaint Patient presents with Right Knee - Pain . HPI: Knee Pain: Patient complains of right knee pain. She has had a left total knee by Dr. Jules in the past..This is evaluated as a acute pain since Munith, no injury. The pain began 3 weeks ago. The pain is located medial, lateral, anterior. She describes the symptoms as aching, Deep pain. Symptoms improve with rest, medication: Tylenol used but not effective. She is unable to take other NSAIDS due to kidney disease. The symptoms are worse with activity, stair climbing, weight bearing. The knee has not given out or felt unstable. The patient cannot bend and straighten the knee fully. The patient is/is not active. Treatment to date has been Tylenol, without significant relief. She would like to injection today. PMH: Allergies Allergen Reactions Penicillins Unknown and Other (See Comments) Was told as a child that she is allergic, but has never taken it to know the reaction. Childhood reaction Was told as a child that she is allergic, but has never taken it to know the reaction. Current Outpatient Medications: albuterol (ACCUNEB) 0.63 mg/3 mL nebulizer solution, Take 1 ampule by nebulization every 6 (six) hours as needed for wheezing., Disp: , Rfl: albuterol (PROVENTIL HFA;VENTOLIN HFA) 90 mcg/actuation inhaler, Inhale 2 puffs every 6 (six) hoursas needed for wheezing., Disp: , Rfl: cholecalciferol, vitamin D3, 1,000 unit tablet, Take 1,000 Units by mouth daily., Disp: , Rfl: doxepin (SINEQUAN) 50 MG capsule, Take 50 mg by mouth nightly as needed for sleep., Disp: , Rfl: DULoxetine (CYMBALTA) 60 MG capsule, Take 60 mg by mouth daily., Disp: , Rfl: ferrous sulfate 325 (65 FE) MG tablet, Take 325 mg by mouth daily with breakfast., Disp: , Rfl: levothyroxine (SYNTHROID, LEVOTHROID) 112 MCG tablet, Take 112 mcg by mouth daily, Disp: , Rfl: lisinopril (PRINIVIL,ZESTRIL) 40 MG tablet, Take 40 mg by mouth daily., Disp: , Rfl: omeprazole (PRILOSEC) 40 MG capsule, Take 40 mg by mouth daily ., Disp: , Rfl: tiZANidine (ZANAFLEX) 4 MG capsule, Take 4 mg by mouth nightly. Pt takes 3 pills for a total of 12mg, Disp: , Rfl: amLODIPine (NORVASC) 5 MG tablet, Take 10 mg by mouth daily ., Disp: , Rfl: fluticasone/umeclidin/vilanter (TRELEGY ELLIPTA INHL), Inhale ., Disp: , Rfl: Past Medical History: Diagnosis Date Anxiety Arthritis Back pain Bladder problem incontinence Cancer (HCC) thyroid Chronic pain disorder Colitis sigmoid COPD (chronic obstructive pulmonary disease) (HCC) Depression Diverticulosis Emphysema of lung (HCC) GERD (gastroesophageal reflux disease) Hepatic steatosis Hypertension Hypothyroidism Kidney disease, chronic, stage I (GFR over 89 ml/min) stage 3 Obesity Sleep apnea Past Surgical History: Procedure Laterality Date CARDIOVASCULAR STRESS TEST CHOLECYSTECTOMY COLONOSCOPY with biopsies GALLBLADDER HYSTERECTOMY JOINT REPLACEMENT Left knee ORTHOPEDIC SURGERY r wrist surgery, left ankle, right rotator cuff ROTATOR CUFF REPAIR Right THYROIDECTOMY N/A 07/15/2015 Procedure: TOTAL THYROIDECTOMY; Surgeon: Lopez Alonso MD; Location: [facility]; Service: US ECHO TRANSTHORACIC FOLLOWUP LIMITED WRIST SURGERY Right Social History Socioeconomic History Marital status: Spouse name: Not on file Number of children: Not on file Years of education: Not on file Highest education level: Not on file Occupational History 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 Social Needs Financial resource strain: Not on file Food insecurity Worry: Not on file Inability: Not on file Transportation needs Medical: Not on file Non-medical: Not on file Tobacco Use Smoking status: Former Smoker Packs/day: 1.00 Years: 20.00 Pack years: 20.00 Quit date: 07/10/2013 Years since quittin.3 Smokeless tobacco: Never Used Substance and Sexual Activity Alcohol use: No Drug use: Yes Types: Marijuana Comment: currently using Sexual activity: Not on file Lifestyle Physical activity Days per week: Not on file Minutes per session: Not on file Stress: Not on file Relationships Social connections Talks on phone: Not on file Gets together: Not on file Attends jewish service: Not on file Active member of club or organization: Not on file Attends meetings of clubs or organizations: Not on file Relationship status: Not on file Other Topics Concern Not on file Social History Narrative Not on file ROS: Review of Systems Constitutional: Negative for chills, diaphoresis and fever. Respiratory: Negative for shortness of breath. Cardiovascular: Negative for chest pain, palpitations and leg swelling. Genitourinary: Negative for frequency and urgency. Musculoskeletal: Positive for arthralgias and myalgias. Skin: Negative for color change, rash and wound. Neurological: Negative for dizziness, syncope and weakness. Psychiatric/Behavioral: Negative for agitation. The patient is not nervous/anxious. PE: Physical Exam Constitutional: She is oriented to person, place, and time. She appears well- developed and well-nourished. HENT: Head: Normocephalic and atraumatic. Eyes: Pupils are equal, round, and reactive to light. Neck: Normal range of motion. Neck supple. Cardiovascular: Normal rate and regular rhythm. Pulmonary/Chest: Effort normal and breath sounds normal. Abdominal: Soft. Bowel sounds are normal. Musculoskeletal: General: Tenderness present. Neurological: She is alert and oriented to person, place, and time. She has normal reflexes. Skin: Skin is warm and dry. Imaging:Imaging;4- view weight bearing taken today: Diagnosis management comments: XR right knee; 1. Moderate medial and patellofemoral compartment and mild lateral compartment osteoarthrosis is noted in the right knee, with joint space narrowing and small marginal osteophytes. Superior patellar enthesophyte is noted. Diagnosis: Problem List Items Addressed This Visit None Visit Diagnoses Primary osteoarthritis of right knee - Primary Follow Up: Suggested cortisone injection and PT for preoperative right knee as she has not tried these conservative treatment methods.We will wait on PT at this time Return in about 3 months (around 02/07/2021). Flori Rodrigues CNP documented in this encounter Discharge Instructions * Instructions* Fay Sanchez PA-C - 11/02/2020 Please take Tylenol for pain. May utilize numbing patches as needed. Contact Dr. Jules within 1 to 2days to set up a follow-up. Rest ice and elevate extremity. If symptoms worsen or persist present back to the ER. * Attachments The following attachments cannot be sent through Care Everywhere. 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 CARE, PT NE EDS NPP CERVICAL RAD 4 M FU EORDER Reason for Visit Acquired hypothyroid ism FELISA (obstructive sleep apnea) Recurrent falls Carnitine palmitoyltransferase II deficiency Chronic diarrhea CKD (chronic kidney disease) stage 4, GFR 15-29 ml/min Polyneuropathy Moderate major depression Establishing care with new doctor, encounter for Lightheadedness Essential hypertension COPD (chronic obstructive pulmonary disease) Chief Complaint 4 M FU EORDER FELISA Amb Documentation SYNCOPE, CPTII DEFICIENCY VERTIGO,SYNCOPE CHEST PAIN Reason for Visit Cervical radiculopat hy Fatigue Insomnia Low back pain Neck pain Peripheral arterial disease Polyneuropathy Chronic bronchitis Hypoxia FELISA (obstructive sleep apnea) Smoking greater than 30 pack years Coronary artery disease Essential hypertension FELISA (obstructive sleep apnea) Palpitations Syncope Chief Complaint 4 M FU EORDER FELISA Amb Documentation SYNCOPE, CPTII DEFICIENCY VERTIGO,SYNCOPE 30 DAY MONITOR CHEST PAIN ATHEROSCLEROTIC HEART DISEASE PAIN IN UPPER STOMACH AFTER EATING ATHEROSCLEROTIC HEART DISEASE Reason for Visit Cervical radiculopat hy Fatigue Insomnia Low back pain Neck pain Peripheral arterial disease Polyneuropathy Chronic bronchitis Hypoxia FELISA (obstructive sleep apnea) Smoking greater than 30 pack years Coronary artery disease Essential hypertension FELISA (obstructive sleep apnea) Palpitations Syncope Acquired hypothyroidism Carnitine palmitoyltransferase II deficiency FELISA (obstructive sleep apnea) Stage 3b chronic kidney disease (CKD) Moderate major depression Immunization due Chronic abdominal pain Ventricular tachycardia Essential hypertension COPD (chronic obstructive pulmonary disease) Screening for breast cancer Chief Complaint FELISA Amb Documentation SYNCOPE, CPTII DEFICIENCY VERTIGO,SYNCOPE 30 DAY MONITOR CHEST PAIN ATHEROSCLEROTIC HEART DISEASE PAIN IN UPPER STOMACH AFTER EATING ATHEROSCLEROTIC HEART DISEASE Reason for Visit Chronic bronchitis Hypoxia FELISA (obstructive sleep apnea) Smoking greater than 30 pack years Coronary artery disease Essential hypertension FELISA (obstructive sleep apnea) Palpitations Syncope Acquired hypothyroidism Carnitine palmitoyltransferase II deficiency FELISA (obstructive sleep apnea) Stage 3b chronic kidney disease (CKD) Moderate major depression Immunization due Chronic abdominal pain Ventricular tachycardia Essential hypertension COPD (chronic obstructive pulmonary disease) Screening for breast cancer Chief Complaint Amb Documentation SYNCOPE, CPTII DEFICIENCY VERTIGO,SYNCOPE 30 DAY MONITOR CHEST PAIN ATHEROSCLEROTIC HEART DISEASE PAIN IN UPPER STOMACH AFTER EATING ATHEROSCLEROTIC HEART DISEASE NICOTINE DEPENDENCE, BREAST SCREENING Reason for Visit Coronary artery dise ase Essential hypertension FELISA (obstructive sleep apnea) Palpitations Syncope Acquired hypothyroidism Carnitine palmitoyltransferase II deficiency FELISA (obstructive sleep apnea) Stage 3b chronic kidney disease (CKD) Moderate major depression Immunization due Chronic abdominal pain Ventricular tachycardia Essential hypertension COPD (chronic obstructive pulmonary disease) Screening for breast cancer Chief Complaint 2 M FU 9 M FU EORDER Reason for Visit Coronary artery dise ase Essential hypertension Nonsustained ventricular tachycardia Obesity FELISA (obstructive sleep apnea) Palpitations Syncope Polyneuropathy Chief Complaint 2 M FU 9 M FU EORDER MEDICATION FOLLOW UP NEW-PROTEINURIA Unspecified hydronephrosis Reason for Visit Coronary artery dise ase Essential hypertension Nonsustained ventricular tachycardia Obesity FELISA (obstructive sleep apnea) Palpitations Syncope Polyneuropathy Carnitine palmitoyltransferase II deficiency FELISA (obstructive sleep apnea) Stage 3b chronic kidney disease (CKD) Moderate major depression Blood per rectum Mixed hyperlipidemia Chronic abdominal pain Post-operative hypothyroidism Ventricular tachycardia Essential hypertension Morbid obesity with BMI of 40.0-44.9, adult COPD (chronic obstructive pulmonary disease) Polyclonal gammopathy Chief Complaint 9 M FU EORDER MEDICATION FOLLOW UP NEW-PROTEINURIA Unspecified hydronephrosis 6 M FU CHRONIC OBSTRUCTIVE PULMONARY DISEASE SWELLING IN BOTH LEGS Reason for Visit Polyneuropathy Carnitine palmitoyltransferase II deficiency FELISA (obstructive sleep apnea) Stage 3b chronic kidney disease (CKD) Moderate major depression Blood per rectum Mixed hyperlipidemia Chronic abdominal pain Post-operative hypothyroidism Ventricular tachycardia Essential hypertension Morbid obesity with BMI of 40.0-44.9, adult COPD (chronic obstructive pulmonary disease) Polyclonal gammopathy Chronic hypoxemic respiratory failure COPD (chronic obstructive pulmonary disease) FELISA (obstructive sleep apnea) FELISA (obstructive sleep apnea) Elevated glucose Bilateral leg edema Chronic abdominal pain Post-operative hypothyroidism Chief Complaint Admit Date HOSP FOLLOW UP October 16, 2024 1:13pm acute neck pain December 26, 2024 11:03am neck pain January 01, 2025 3:31pm CERVICAL SPINE January 06, 2025 9:54 am Room 4 January 06, 2025 10:2 8am LOW BACK PAIN January 13, 2025 3:3 3pm RIGHT SHOULDER January 21, 2025 12: 57pm RM 2 January 21, 2025 1:1 2pm Reason for Visit Admit Date Carnitine palmitoyltransferase II defici ency October 16, 2024 1:13pm Prediabetes October 16, 2024 1:13pm FELISA (obstructive sleep apnea) October 062023 1:13pm Stage 3b chronic kidney disease (CKD) De cember 2023 1:13pm Moderate major depression October 16, 2024 1:13pm Screening for osteoporosis October 1:13pm Mixed hyperlipidemia October 16, 2024 1:13pm Chronic abdominal pain October 16 1:13pm Post-operative hypothyroidism October 062023 1:13pm Ventricular tachycardia October 16, 2 024 1:13pm Essential hypertension October 16 1:13pm COPD (chronic obstructive pulmonary dise ase) October 16, 2024 1:13pm Hospital discharge follow-up October 162023 1:13pm Obesity (BMI 30-39.9) October 16 1:13pm Left cervical radiculopathy December 11:03am Low back pain December 26, 2024 11:03am Myalgia December 26, 2024 11:03am Neck pain December 26, 2024 11:03am Polyneuropathy December 26, 2024 11:03am Insomnia December 26, 2024 11:03am Cervical myelopathy with cervical radicu lopathy January 06, 2025 9:54am Degenerative disc disease, cervical Quinn 2024 9:54am Right shoulder pain January 21, 2025 12: 57pm Chief Complaint Admit Date HOSP FOLLOW UP October 16, 2024 1:13pm acute neck pain December 26, 2024 11:03am neck pain January 01, 2025 3:31pm CERVICAL SPINE January 06, 2025 9:54 am Room 4 January 06, 2025 10:2 8am LOW BACK PAIN January 13, 2025 3:3 3pm RIGHT SHOULDER January 21, 2025 12: 57pm RM 2 January 21, 2025 1:1 2pm Pain February 03, 2025 3:2 3pm Chief Complaint Admit Date acute neck pain December 26, 2024 11:03am neck pain January 01, 2025 3:31pm CERVICAL SPINE January 06, 2025 9:54 am Room 4 January 06, 2025 10:2 8am LOW BACK PAIN January 13, 2025 3:3 3pm RIGHT SHOULDER January 21, 2025 12: 57pm RM 2 January 21, 2025 1:1 2pm Pain February 03, 2025 3:2 3pm R/O RT SHOULDER CUFF TEAR February 25 4:03pm CERVICAL SPINE February 27, 2025 2:2 5pm RM 5 February 27, 2025 3:2 6pm FOLLOW UP / TEST RESULTS March 27, 2025 11:29am RIGHT SHOULDER April 03, 2025 1:50p m Reason for Visit Admit Date Left cervical radiculopathy December 11:03am Low back pain December 26, 2024 11:03am Myalgia December 26, 2024 11:03am Neck pain December 26, 2024 11:03am Polyneuropathy December 26, 2024 11:03am Insomnia December 26, 2024 11:03am Cervical myelopathy with cervical radicu lopathy January 06, 2025 9:54am Degenerative disc disease, cervical Quinn 2024 9:54am Right shoulder pain January 21, 2025 12: 57pm Left cervical radiculopathy February 27, 2025 2:25pm Lumbar stenosis without neurogenic david ication February 27, 2025 2:25pm Arthrosis of right acromioclavicular ya nt April 03, 2025 1:50pm Impingement of right shoulder April 03, 2025 1:50pm Right shoulder pain April 03, 2025 1:50p m Tendinosis of right rotator cuff March 1:50pm Chief Complaint Admit Date acute neck pain December 26, 2024 11:03am neck pain January 01, 2025 3:31pm CERVICAL SPINE January 06, 2025 9:54 am Room 4 January 06, 2025 10:2 8am LOW BACK PAIN January 13, 2025 3:3 3pm RIGHT SHOULDER January 21, 2025 12: 57pm RM 2 January 21, 2025 1:1 2pm Pain February 03, 2025 3:2 3pm R/O RT SHOULDER CUFF TEAR February 25 4:03pm CERVICAL SPINE February 27, 2025 2:2 5pm RM 5 February 27, 2025 3:2 6pm FOLLOW UP / TEST RESULTS March 27, 2025 11:29am RIGHT SHOULDER April 03, 2025 1:50p m 3 M FU April 04, 2025 1:38p m Reason for Visit Admit Date Left cervical radiculopathy December 11:03am Low back pain December 26, 2024 11:03am Myalgia December 26, 2024 11:03am Neck pain December 26, 2024 11:03am Polyneuropathy December 26, 2024 11:03am Insomnia December 26, 2024 11:03am Cervical myelopathy with cervical radicu lopathy January 06, 2025 9:54am Degenerative disc disease, cervical Quinn 2024 9:54am Right shoulder pain January 21, 2025 12: 57pm Left cervical radiculopathy February 27, 2025 2:25pm Lumbar stenosis without neurogenic david ication February 27, 2025 2:25pm Arthrosis of right acromioclavicular ya nt April 03, 2025 1:50pm Impingement of right shoulder April 03, 2025 1:50pm Right shoulder pain April 03, 2025 1:50p m Tendinosis of right rotator cuff March 1:50pm FELISA (obstructive sleep apnea) April 04, 2025 1:38pm Chief Complaint Admit Date acute neck pain December 26, 2024 11:03am neck pain January 01, 2025 3:31pm CERVICAL SPINE January 06, 2025 9:54 am Room 4 January 06, 2025 10:2 8am LOW BACK PAIN January 13, 2025 3:3 3pm RIGHT SHOULDER January 21, 2025 12: 57pm RM 2 January 21, 2025 1:1 2pm Pain February 03, 2025 3:2 3pm R/O RT SHOULDER CUFF TEAR February 25 4:03pm CERVICAL SPINE February 27, 2025 2:2 5pm RM 5 February 27, 2025 3:2 6pm FOLLOW UP / TEST RESULTS March 27, 2025 11:29am RIGHT SHOULDER April 03, 2025 1:50p m 3 M FU April 04, 2025 1:38p m 6 M FU 2025 1:12 pm Reason for Visit Admit Date Left cervical radiculopathy December 11:03am Low back pain December 26, 2024 11:03am Myalgia December 26, 2024 11:03am Neck pain December 26, 2024 11:03am Polyneuropathy December 26, 2024 11:03am Insomnia December 26, 2024 11:03am Cervical myelopathy with cervical radicu lopathy January 06, 2025 9:54am Degenerative disc disease, cervical Quinn 2024 9:54am Right shoulder pain January 21, 2025 12: 57pm Left cervical radiculopathy February 27, 2025 2:25pm Lumbar stenosis without neurogenic david ication February 27, 2025 2:25pm Arthrosis of right acromioclavicular ya nt April 03, 2025 1:50pm Impingement of right shoulder April 03, 2025 1:50pm Right shoulder pain April 03, 2025 1:50p m Tendinosis of right rotator cuff March 1:50pm Smoking greater than 30 pack years March [id number] 1:38pm Stage 3 severe COPD by GOLD classificati on April 04, 2025 1:38pm Hypoxemia April 04, 2025 1:38p m FELISA (obstructive sleep apnea) April 04, 2025 1:38pm Carnitine palmitoyltransferase II defici ency 2025 1:12pm Prediabetes 2025 1:12 pm FELISA (obstructive sleep apnea) 2025 1:12pm Stage 3b chronic kidney disease (CKD) Ju 2024 1:12pm Moderate major depression April 16 1:12pm Mixed hyperlipidemia 2025 1:1 2pm Chronic abdominal pain 2025 1 :12pm Post-operative hypothyroidism 2025 1:12pm Ventricular tachycardia 2025 1:12pm Essential hypertension 2025 1 :12pm COPD (chronic obstructive pulmonary dise ase) 2025 1:12pm Obesity (BMI 30-39.9) 2025 1: 12pm Chief Complaint Admit Date acute neck pain December 26, 2024 11:03am neck pain January 01, 2025 3:31pm CERVICAL SPINE January 06, 2025 9:54 am Room 4 January 06, 2025 10:2 8am LOW BACK PAIN January 13, 2025 3:3 3pm RIGHT SHOULDER January 21, 2025 12: 57pm RM 2 January 21, 2025 1:1 2pm Pain February 03, 2025 3:2 3pm R/O RT SHOULDER CUFF TEAR February 25 4:03pm CERVICAL SPINE February 27, 2025 2:2 5pm RM 5 February 27, 2025 3:2 6pm FOLLOW UP / TEST RESULTS March 27, 2025 11:29am RIGHT SHOULDER April 03, 2025 1:50p m 3 M FU April 04, 2025 1:38p m 6 M FU 2025 1:12 pm Nicotine dependence, cigarettes, uncompl icated April 17, 2025 6:27pm Reason for Visit Admit Date Left cervical radiculopathy December 11:03am Low back pain December 26, 2024 11:03am Myalgia December 26, 2024 11:03am Neck pain December 26, 2024 11:03am Polyneuropathy December 26, 2024 11:03am Insomnia December 26, 2024 11:03am Cervical myelopathy with cervical radicu lopathy January 06, 2025 9:54am Degenerative disc disease, cervical Quinn 2024 9:54am Right shoulder pain January 21, 2025 12: 57pm Left cervical radiculopathy February 27, 2025 2:25pm Lumbar stenosis without neurogenic david ication February 27, 2025 2:25pm Arthrosis of right acromioclavicular ya nt April 03, 2025 1:50pm Impingement of right shoulder April 03, 2025 1:50pm Right shoulder pain April 03, 2025 1:50p m Tendinosis of right rotator cuff March 1:50pm Smoking greater than 30 pack years March [id number] 1:38pm Stage 3 severe COPD by GOLD classificati on April 04, 2025 1:38pm Hypoxemia April 04, 2025 1:38p m FELISA (obstructive sleep apnea) April 04, 2025 1:38pm Carnitine palmitoyltransferase II defici ency 2025 1:12pm Prediabetes 2025 1:12 pm FELISA (obstructive sleep apnea) 2025 1:12pm Stage 3b chronic kidney disease (CKD) Ju 2024 1:12pm Moderate major depression April 16 1:12pm Mixed hyperlipidemia 2025 1:1 2pm Foamy urine 2025 1:12 pm Chronic abdominal pain 2025 1 :12pm Post-operative hypothyroidism 2025 1:12pm Ventricular tachycardia 2025 1:12pm Essential hypertension 2025 1 :12pm COPD (chronic obstructive pulmonary dise ase) 2025 1:12pm Obesity (BMI 30-39.9) 2025 1: 12pm Chief Complaint Admit Date RIGHT SHOULDER January 21, 2025 12: 57pm RM 2 January 21, 2025 1:1 2pm Pain February 03, 2025 3:2 3pm R/O RT SHOULDER CUFF TEAR February 25 4:03pm CERVICAL SPINE February 27, 2025 2:2 5pm RM 5 February 27, 2025 3:2 6pm FOLLOW UP / TEST RESULTS March 27, 2025 11:29am RIGHT SHOULDER April 03, 2025 1:50p m 3 M FU April 04, 2025 1:38p m 6 M FU 2025 1:12 pm Nicotine dependence, cigarettes, uncompl icated April 17, 2025 6:27pm THYROID CANCER F/U May 07, 2025 1:02p m Reason for Visit Admit Date Right shoulder pain January 21, 2025 12: 57pm Left cervical radiculopathy February 27, 2025 2:25pm Lumbar stenosis without neurogenic david ication February 27, 2025 2:25pm Low back pain March 27, 2025 11:29 am Polyneuropathy March 27, 2025 11:29 am Insomnia March 27, 2025 11:29 am Arthrosis of right acromioclavicular ya nt April 03, 2025 1:50pm Impingement of right shoulder April 03, 2025 1:50pm Right shoulder pain April 03, 2025 1:50p m Tendinosis of right rotator cuff March 1:50pm Smoking greater than 30 pack years March [id number] 1:38pm Stage 3 severe COPD by GOLD classificati on April 04, 2025 1:38pm Hypoxemia April 04, 2025 1:38p m FELISA (obstructive sleep apnea) April 04, 2025 1:38pm Carnitine palmitoyltransferase II defici ency 2025 1:12pm Prediabetes 2025 1:12 pm FELISA (obstructive sleep apnea) 2025 1:12pm Stage 3b chronic kidney disease (CKD) Ju 2024 1:12pm Moderate major depression April 16 1:12pm Mixed hyperlipidemia 2025 1:1 2pm Foamy urine 2025 1:12 pm Chronic abdominal pain 2025 1 :12pm Post-operative hypothyroidism 2025 1:12pm Ventricular tachycardia 2025 1:12pm Essential hypertension 2025 1 :12pm COPD (chronic obstructive pulmonary dise ase) 2025 1:12pm Obesity (BMI 30-39.9) 2025 1: 12pm Chief Complaint Admit Date R/O RT SHOULDER CUFF TEAR February 25 4:03pm CERVICAL SPINE February 27, 2025 2:2 5pm RM 5 February 27, 2025 3:2 6pm FOLLOW UP / TEST RESULTS March 27, 2025 11:29am RIGHT SHOULDER April 03, 2025 1:50p m 3 M FU April 04, 2025 1:38p m 6 M FU 2025 1:12 pm Nicotine dependence, cigarettes, uncompl icated April 17, 2025 6:27pm THYROID CANCER F/U May 07, 2025 1:02p m 8 wk fu June 17, 2025 2: 44pm Reason for Visit Admit Date Left cervical radiculopathy February 27, 2025 2:25pm Lumbar stenosis without neurogenic david ication February 27, 2025 2:25pm Low back pain March 27, 2025 11:29 am Polyneuropathy March 27, 2025 11:29 am Insomnia March 27, 2025 11:29 am Arthrosis of right acromioclavicular ya nt April 03, 2025 1:50pm Impingement of right shoulder April 03, 2025 1:50pm Right shoulder pain April 03, 2025 1:50p m Tendinosis of right rotator cuff March 1:50pm Smoking greater than 30 pack years March [id number] 1:38pm Stage 3 severe COPD by GOLD classificati on April 04, 2025 1:38pm Hypoxemia April 04, 2025 1:38p m FELISA (obstructive sleep apnea) April 04, 2025 1:38pm Carnitine palmitoyltransferase II defici ency 2025 1:12pm Prediabetes 2025 1:12 pm FELISA (obstructive sleep apnea) 2025 1:12pm Stage 3b chronic kidney disease (CKD) Ju ne 2024 1:12pm Moderate major depression April 16 1:12pm Mixed hyperlipidemia 2025 1:1 2pm Foamy urine 2025 1:12 pm Chronic abdominal pain 2025 1 :12pm Post-operative hypothyroidism 2025 1:12pm Ventricular tachycardia 2025 1:12pm Essential hypertension 2025 1 :12pm COPD (chronic obstructive pulmonary dise ase) 2025 1:12pm Obesity (BMI 30-39.9) 2025 1: 12pm Smoking greater than 20 pack years Augus 2024 2:44pm Stage 3 severe COPD by GOLD classificati on June 17, 2025 2:44pm Hypoxemia June 17, 2025 2: 44pm FELISA (obstructive sleep apnea) June 2:44pm Chief Complaint Admit Date CERVICAL SPINE February 27, 2025 2:2 5pm RM 5 February 27, 2025 3:2 6pm FOLLOW UP / TEST RESULTS March 27, 2025 11:29am RIGHT SHOULDER April 03, 2025 1:50p m 3 M FU April 04, 2025 1:38p m 6 M FU 2025 1:12 pm Nicotine dependence, cigarettes, uncompl icated April 17, 2025 6:27pm THYROID CANCER F/U May 07, 2025 1:02p m 8 wk fu June 17, 2025 2: 44pm J44.9 - Chronic obstructive pulmonary di sease, uns June 24, 2025 12:50pm DISCUSS BLOODWORK June 26, 2025 1: 54pm Chief Complaint Admit Date FOLLOW UP / TEST RESULTS March 27, 2025 11:29am RIGHT SHOULDER April 03, 2025 1:50p m 3 M FU April 04, 2025 1:38p m 6 M FU 2025 1:12 pm Nicotine dependence, cigarettes, uncompl icated April 17, 2025 6:27pm THYROID CANCER F/U May 07, 2025 1:02p m 8 wk fu June 17, 2025 2: 44pm J44.9 - Chronic obstructive pulmonary di sease, uns June 24, 2025 12:50pm DISCUSS BLOODWORK June 26, 2025 1: 54pm INT ORDERS June 26, 2025 3: 27pm Reason for Visit Admit Date Low back pain March 27, 2025 11:29 am Polyneuropathy March 27, 2025 11:29 am Insomnia March 27, 2025 11:29 am Arthrosis of right acromioclavicular ya nt April 03, 2025 1:50pm Impingement of right shoulder April 03, 2025 1:50pm Right shoulder pain April 03, 2025 1:50p m Tendinosis of right rotator cuff March 1:50pm Smoking greater than 30 pack years March [id number] 1:38pm Stage 3 severe COPD by GOLD classificati on April 04, 2025 1:38pm Hypoxemia April 04, 2025 1:38p m FELISA (obstructive sleep apnea) April 04, 2025 1:38pm Carnitine palmitoyltransferase II defici ency 2025 1:12pm Prediabetes 2025 1:12 pm FELISA (obstructive sleep apnea) 2025 1:12pm Stage 3b chronic kidney disease (CKD) Ju 2024 1:12pm Moderate major depression April 16 1:12pm Mixed hyperlipidemia 2025 1:1 2pm Foamy urine 2025 1:12 pm Chronic abdominal pain 2025 1 :12pm Post-operative hypothyroidism 2025 1:12pm Ventricular tachycardia 2025 1:12pm Essential hypertension 2025 1 :12pm COPD (chronic obstructive pulmonary dise ase) 2025 1:12pm Obesity (BMI 30-39.9) 2025 1: 12pm Smoking greater than 20 pack years Augus t 2024 2:44pm Stage 3 severe COPD by GOLD classificati on June 17, 2025 2:44pm Hypoxemia June 17, 2025 2: 44pm FELISA (obstructive sleep apnea) June 2:44pm Anemia June 26, 2025 1: 54pm Additional Source Comments INFORMATION SOURCE (unrecogn ized section and content) DATE CREATED AUTHOR 05/01/2018 [facility] DATE CREATED AUTHOR AUTHOR'S ORGANIZ ATION 07/04/[address] [facility] DATE CREATED AUTHOR AUTHOR'S ORGANIZ ATION 01/29/2019 [facility] DATE CREATED AUTHOR AUTHOR'S ORGANIZ ATION 02/16/2019 [facility] DATE CREATED AUTHOR AUTHOR'S ORGANIZ ATION 07/25/2019 [facility] DATE CREATED AUTHOR AUTHOR'S ORGANIZ ATION 04/25/2021 [employer] DATE CREATED AUTHOR AUTHOR'S ORGANIZ ATION 07/09/2021 [facility] DATE CREATED AUTHOR AUTHOR'S ORGANIZ ATION 04/12/2022 [facility] DATE CREATED AUTHOR AUTHOR[facility]S [facility]IZ ATION [facility] DATE CREATED AUTHOR AUTHOR'S ORGANIZ ATION 05/01/2025 [facility] DATE CREATED AUTHOR AUTHOR'S ORGANIZ ATION 07/09/2025 [facility] DATE CREATED AUTHOR AUTHOR'S ORGANIZ ATION 07/14/2025 [facility] Reason for Visit (unrecogniz ed section and content) Reason Comments Establish Care CAD & cardiomyopathy Chest Pain sharp pain in middle of the chest Shortness of Breath w/ exertion pt state s she is using cpap machine at night Medication Problem Pt did not take any of her medications this morning Status Reason Specialty Diagnoses / Procedures Referred By Contact Referred To Contact Pending Review Specialty Services Required/Patie nt's Best Interest Cardiology Diagnoses Coronary artery disease, angina presence unspecified, unspecified vessel or lesion type, unspecified whether point hope ira or transplanted heart Cardiomyopathy, unspecified type (HCC) Oscar Vinson MD [address] [place] [address] [facility] [address] [facility] [place] [address] Reason Comments Results Status Reason Specialty Diagnoses / Procedures Referre d By Contact Referred To Contact Status Reason Specialty Diagnoses / Procedures Referre d By Contact Referred To Contact Closed Cardiology Diagnoses Abnormal electrocardiogram Cardiomyopathy, unspecified type (HCC) Hypertension, unspecified type Procedures Echocardiogram complete Whitley Martinez MD [address] [place] [address] Status Reason Specialty Diagnoses / Procedures Referre d By Contact Referred To Contact Closed Cardiology Diagnoses Claudication of lower extremity (HCC) Procedures Ultrasound ankle / brachial indices extremity complete Elana Pena, DO [address] [place] [address] Reason Comments Pain Status Reason Specialty Diagnoses / Procedures Referred By Contact Referred To Contact Closed Orthopedic Surgery Diagnoses Chronic right shoulder pain Jonathan Rutherford, STEAM TENDER [address] [id number] Rivas Jules MD [address] [place] [address] Reason Comments Joint Swelling Status Reason Specialty Diagnoses / Procedures Referred By Contact Referred To Contact Pending Review Specialty Services Required/Patien t's Best Interest Neurology Diagnoses Polyneuropathy Rusty Dozier MD [address] [place] [address] Eugenia Conte MD [address] [facility] [place] [address] Reason Comments Leg Pain R leg pain for a few days - tingling and it feels different she stated. She said that the coloration to the leg is bluish. Last few visits she has been in her D-dimer has been elevated but have not found a clot Reason Comments MUSCLE CRAMPS Reason Comments New patient dizziness Specialty Diagnoses / Procedures Referred By Jacob mccauley Referred To Contact Otolaryngology Diagnoses Dizzy Jonathan Rutherford, STEAM TENDER [address] [id number] Alan Saba MD [address] [facility] [address] [place] [id number] Referral ID Status Reason Start Date Expiration Date V isits Requested Visits Authorized [id number] Pending Review 07/22/2021 07/22/2022 1 1 Reason Comments Consult Pre-op Reason Onset Date Comments Medication Refill 01/07/2022 Reason Comments Rectal Prolapse Discuss surgery Reason Comments Rectal Bleeding Specialty Diagnoses / Procedures Referred By Jacob t Referred To Contact Diagnoses Diarrhea Referral ID Status Reason Start Date Expiration Date Visits Re quested Visits Authorized [id number] 1 1 Reason Comments Follow-up Reason Onset Date Comments Change Appointment 11/23/2022 Reason Onset Date Comments Medication Review With Pharmacy 12/06/2022 Dojolivi Reason Comments Medication Refill DOJOLVI Reason Onset Date Comments Case Discussion 02/23/2023 Reason Onset Date Comments FOLLOW-UP 02/27/2023 Reason Onset Date Comments Medication Refill 01/29/2024 Dojolvi Reason Onset Date Comments Medication Refill 03/06/2024 Levocarnitine Reason Comments Shortness of Breath Specialty Diagnoses / Procedures Referred By Jacob t Referred To Contact Diagnoses Acute hypercapnic respiratory failure (HCC) Referral ID Status Reason Start Date Expiration Date Visits Re quested Visits Authorized [id number] 1 1 Reason Comments Initial Visit (Intake) VT/Palpitations/ Flavia Specialty Diagnoses / Procedures Referred By Jacob mccauley Referred To Contact Cardiology Diagnoses Ventricular tachycardia (HCC) Palpitations Flavia Shine MD [address] [place] [address] Phone: tel: fax: [facility] [address] [place], [place] [address]jefe 3rd [place] [address] Phone: tel: fax: Referral ID Status Reason Start Date Expiration Date V isits Requested Visits Authorized [id number] Pending Review 08/14/2024 08/14/2025 1 1 Specialty Diagnoses / Procedures Referred By Jacob t Referred To Contact Diagnoses COPD exacerbation (HCC) Acute hypoxic respiratory failure (HCC) Referral ID Status Reason Start Date Expiration Date Visits Re quested Visits Authorized [id number] 1 1 Reason Onset Date Comments Medication Prior Authorization (General) 024 Dojolvi Reason Onset Date Comments Refill Request 02/05/2025 Doljovi Reason Comments Shortness of Breath Specialty Diagnoses / Procedures Referred By Jacob t Referred To Contact Diagnoses SOB (shortness of breath) Referral ID Status Reason Start Date Expiration Date Visits Re quested Visits Authorized [id number] 1 1 Reason Comments Follow-up 4 mo NSVT Cardiac MR I Reason Onset Date Comments Illness 03/05/2025 Reason Onset Date Comments Follow Up (Medical) 06/17/2025 Assessment & Plan Note - Whitley Martinez MD - 04/05/2019 2:32 PM EDTAssessment & Plan Note - Whitley Martinez MD - 04/05/2019 2:31 PM EDT Miscellaneous Notes (unrecog nized section and content) Associated Problem(s): 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HCC) I have ordered an echocardiogram to rule out cardiomyopathy. Her last echocardiogram was 7 years ago and showed normal to hyperdynamic LV systolic function. Those results will be forthcoming. If it is unremarkable, I will see her again in 1 year. Associated Problem(s): Chest pain The patient has atypical chest pain. It is pleuritic. She had a SPECT 10 months ago that did not demonstrate ischemia. This is noncardiac. Continue to observe. Associated Problem(s): Sleep apnea She is inconsistently compliant with CPAP therapy. I explained to her that given her underlying severe lung disease, she should wear her CPAP as directed. She was warned. Associated Problem(s): COPD (chronic obstructive pulmonary disease) ([facility]) She is followed by pulmonology. Associated Problem(s): Hypertension Her blood pressure is mildly elevated in the office today. I have asked her to check her blood pressures at home. She may benefit from advancement of her antihypertensive regimen. documented in this encounter ED Attestation: I did not see this patient. However, I was physically present in the department and available for consult in the ED for this patient, if the Advanced Practice Provider (AUBREY) needed any assistance. The AUBREY evaluated the patient independently for a complaint of Joint Swelling, and completed their own examination, documentation, and discharge. documented in this encounter Fay Sanchez PA-C - 11/02/2020 2:30 PM Irma Charles RN - 11/02/2020 1:23 PM Natalee Rios CNP - 05/07/2019 5:35 PM Mihaela Talavera RN - 05/07/2019 4:33 PM EDT ED Notes (unrecognized secti on and content) ED PROVIDER NOTE [facility] EMERGENCY DEPARTMENT NAME: Radha Shafer AGE: 60 y.o. : 1960 VISIT DATE: 11/02/2020 CSN: [id number] PCP: Jonathan Rutherford CNP Chief Complaint Patient presents with Joint Swelling Patient presents to the emergency department for a complaint of right knee pain. Patient states that she started experiencing this right knee pain about 5 days ago. States she feels like it is slightly swollen as well. States that she knows the pain is deep within her knee. States it hurts to walk up and down stairs. States does radiate down her leg and sometimes she does notice some calf swelling as well. Denies any erythema or warmth. Denies fever or chills. Denies numbness and tingling. Denies all other symptoms and complaints at this time. Patient does state that she sees Dr. Jules and he did her other knee replacement. Past Medical History: Diagnosis Date Anxiety Arthritis Back pain Bladder problem incontinence Cancer (HCC) thyroid Chronic pain disorder Colitis sigmoid COPD (chronic obstructive pulmonary disease) (HCC) Depression Diverticulosis Emphysema of lung (HCC) GERD (gastroesophageal reflux disease) Hepatic steatosis Hypertension Hypothyroidism Kidney disease, chronic, stage I (GFR over 89 ml/min) stage 3 Obesity Sleep apnea Past Surgical History: Procedure Laterality Date CARDIOVASCULAR STRESS TEST CHOLECYSTECTOMY COLONOSCOPY with biopsies GALLBLADDER HYSTERECTOMY JOINT REPLACEMENT Left knee ORTHOPEDIC SURGERY r wrist surgery, left ankle, right rotator cuff ROTATOR CUFF REPAIR Right THYROIDECTOMY N/A 07/15/2015 Procedure: TOTAL THYROIDECTOMY; Surgeon: Lopez Alonso MD; Location: [facility] NEURO OR; Service: US ECHO TRANSTHORACIC FOLLOWUP LIMITED WRIST SURGERY Right Family History Problem Relation Age of Onset Heart disease Mother Lupus Mother Stroke Mother Arthritis Mother Heart attack Mother Heart disease Father Heart attack Father Hypertension Father Hypertension Sister Hypertension Brother Prostate cancer Brother Hypertension Brother Prostate cancer Brother Hypertension Brother Prostate cancer Brother Heart attack Maternal Grandmother Heart attack Maternal Grandfather Heart attack Paternal Grandmother Heart attack Paternal Grandfather Social History Socioeconomic History Marital status: Spouse name: Not on file Number of children: Not on file Years of education: Not on file Highest education level: Not on file Occupational History 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 Social Needs Financial resource strain: Not on file Food insecurity Worry: Not on file Inability: Not on file Transportation needs Medical: Not on file Non-medical: Not on file Tobacco Use Smoking status: Former Smoker Packs/day: 1.00 Years: 20.00 Pack years: 20.00 Quit date: 07/10/2013 Years since quittin.3 Smokeless tobacco: Never Used Substance and Sexual Activity Alcohol use: No Drug use: Yes Types: Marijuana Comment: currently using Sexual activity: Not on file Lifestyle Physical activity Days per week: Not on file Minutes per session: Not on file Stress: Not on file Relationships Social connections Talks on phone: Not on file Gets together: Not on file Attends jewish service: Not on file Active member of club or organization: Not on file Attends meetings of clubs or organizations: Not on file Relationship status: Not on file Other Topics Concern Not on file Social History Narrative Not on file Previous Medications Medication Sig albuterol (ACCUNEB) 0.63 mg/3 mL nebulizer solution Take 1 ampule by nebulization every 6 (six) hours as needed for wheezing. albuterol (PROVENTIL HFA;VENTOLIN HFA) 90 mcg/actuation inhaler Inhale 2 puffs every 6 (six) hours as needed for wheezing. amLODIPine (NORVASC) 5 MG tablet Take 10 mg by mouth daily . cholecalciferol, vitamin D3, 1,000 unit tablet Take 1,000 Units by mouth daily. doxepin (SINEQUAN) 50 MG capsule Take 50 mg by mouth nightly as needed for sleep. DULoxetine (CYMBALTA) 60 MG capsule Take 60 mg by mouth daily. ferrous sulfate 325 (65 FE) MG tablet Take 325 mg by mouth daily with breakfast. fluticasone/umeclidin/vilanter (TRELEGY ELLIPTA INHL) Inhale . levothyroxine (SYNTHROID, LEVOTHROID) 112 MCG tablet Take 112 mcg by mouth daily lisinopril (PRINIVIL,ZESTRIL) 40 MG tablet Take 40 mg by mouth daily. omeprazole (PRILOSEC) 40 MG capsule Take 40 mg by mouth daily . tiZANidine (ZANAFLEX) 4 MG capsule Take 4 mg by mouth nightly. Pt takes 3 pills for a total of 12mg Allergies Allergen Reactions Naproxen Penicillins Unknown Was told as a child that she is allergic, but has never taken it to know the reaction. Childhood reaction Review of Systems Constitutional: Negative for activity change, chills, fatigue and fever. HENT: Negative for congestion, ear pain, hearing loss, postnasal drip, rhinorrhea, sore throat and trouble swallowing. Eyes: Negative for photophobia, pain, redness and visual disturbance. Respiratory: Negative for cough, chest tightness, shortness of breath and wheezing. Cardiovascular: Negative for chest pain, palpitations and leg swelling. Gastrointestinal: Negative for abdominal pain, constipation, diarrhea, nausea and vomiting. Genitourinary: Negative for difficulty urinating, dysuria, hematuria and urgency. Musculoskeletal: Positive for arthralgias. Negative for back pain, myalgias, neck pain and neck stiffness. Skin: Negative for color change and rash. Neurological: Negative for dizziness, speech difficulty, weakness, numbness and headaches. Psychiatric/Behavioral: Negative for agitation and suicidal ideas. The patient is not nervous/anxious. Patient Vitals for the past 24 hrs: BP Temp Temp src Pulse Resp SpO2 Height Weight 11/02/20 1324 (!) 175/91 98.9 F (37.2 C) Oral 97 (!) 20 97 % 5' 5 99.8 kg (220 lb) Physical Exam Vitals signs and nursing note reviewed. Constitutional: General: She is not in acute distress. Appearance: She is well-developed. She is not toxic-appearing. HENT: Head: Normocephalic and atraumatic. Right Ear: External ear normal. Left Ear: External ear normal. Nose: Nose normal. Mouth/Throat: Mouth: Mucous membranes are moist. Eyes: Extraocular Movements: Extraocular movements intact. Conjunctiva/sclera: Conjunctivae normal. Neck: Musculoskeletal: Normal range of motion. Cardiovascular: Rate and Rhythm: Normal rate and regular rhythm. Pulses: Normal pulses. Heart sounds: Normal heart sounds. Pulmonary: Effort: Pulmonary effort is normal. Breath sounds: Normal breath sounds. Musculoskeletal: Normal range of motion. General: Tenderness present. No deformity. Comments: Slight tenderness to palpation noted over anterior right knee Neurovascularly intact No erythema or warmth No calf tenderness Skin: General: Skin is warm and dry. Capillary Refill: Capillary refill takes less than 2 seconds. Findings: No bruising, erythema or rash. Neurological: General: No focal deficit present. Mental Status: She is alert and oriented to person, place, and time. Psychiatric: Mood and Affect: Mood normal. Laboratory & Radiographic Imaging (if done): No results found for this visit on 11/02/20. XR Knee Right 2 Views (Standard) Final Result FINDINGS/ 1. Moderate medial and patellofemoral compartment and mild lateral compartment osteoarthrosis is noted in the right knee, with joint space narrowing and small marginal osteophytes. Superior patellar enthesophyte is noted. 2. No fracture, malalignment, or other acute bony abnormality is seen. 3. Small right knee joint effusion is suspected. Workstation ID: [id number] Ultrasound Duplex Venous Leg RIGHT (Results Pending) Procedures MDM Number of Diagnoses or Management Options Diagnosis management comments: XR 1. Moderate medial and patellofemoral compartment and mild lateral compartment osteoarthrosis is noted in the right knee, with joint space narrowing and small marginal osteophytes. Superior patellar enthesophyte is noted. 2. No fracture, malalignment, or other acute bony abnormality is seen. 3. Small right knee joint effusion is suspected. Duplex ultrasound negative for DVT. Patient is going to be asked to follow-up with Dr. Jules. If symptoms worsen or persist she is asked to present back to the ER. Amount and/or Complexity of Data Reviewed Tests in the radiology section of CPT : ordered and reviewed . Clinical Impression: 1. Right knee pain, unspecified chronicity ED Disposition ED Disposition Condition Comment Discharge Stable Radha Shafer discharged to home/self care in stable condition. Follow-up Information 1. Jonathan Rutherford CNP. Specialty: Nurse Practitioner [address] [place], [place] [id number] 2. Rivas Jules MD. Specialty: Orthopedic Surgery [address] [facility] [address] Contact information for after-discharge care Follow-up information has not been specified. Fay Sanchez PA-C 11/02/20 1524 Pt states about 1 week ago she began having right knee swelling with pain 08/15. 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 No redness noted to the area at this time. documented in this encounter ED PROVIDER NOTE [facility] EM[facility] NAME: Radha Shaefr AGE: 59 y.o. : 1960 VISIT DATE: 05/07/2019 CSN: [id number] PCP: Elana Pena DO Chief Complaint Patient presents with Leg Pain R leg pain for a few days - tingling and it feels different she stated. She said that the coloration to the leg is bluish. Last few visits she has been in her D-dimer has been elevated but have not found a clot Presents to ED with complaints of right leg pain and numbness and tingling. Is able to ambulate per her norm. Denies injury. Past Medical History: Diagnosis Date Anxiety Arthritis Back pain Bladder problem incontinence Cancer (HCC) thyroid Chronic pain disorder Colitis sigmoid COPD (chronic obstructive pulmonary disease) (HCC) Depression Diverticulosis Emphysema of lung (HCC) GERD (gastroesophageal reflux disease) Hepatic steatosis Hypertension Hypothyroidism Kidney disease, chronic, stage I (GFR over 89 ml/min) stage 3 Obesity Sleep apnea Past Surgical History: Procedure Laterality Date CARDIOVASCULAR STRESS TEST CHOLECYSTECTOMY COLONOSCOPY with biopsies GALLBLADDER HYSTERECTOMY JOINT REPLACEMENT Left knee ORTHOPEDIC SURGERY r wrist surgery, left ankle, right rotator cuff ROTATOR CUFF REPAIR Right THYROIDECTOMY N/A 07/15/2015 Procedure: TOTAL THYROIDECTOMY; Surgeon: Lopez Alonso MD; Location: [facility]UR[facility] OR; Service: US ECHO TRANSTHORACIC FOLLOWUP LIMITED WRIST SURGERY Right Family History Problem Relation Age of Onset Heart disease Mother Lupus Mother Stroke Mother Arthritis Mother Heart attack Mother Heart disease Father Heart attack Father Hypertension Father Hypertension Sister Hypertension Brother Prostate cancer Brother Hypertension Brother Prostate cancer Brother Hypertension Brother Prostate cancer Brother Heart attack Maternal Grandmother Heart attack Maternal Grandfather Heart attack Paternal Grandmother Heart attack Paternal Grandfather Social History Socioeconomic History Marital status: Spouse name: Not on file Number of children: Not on file Years of education: Not on file Highest education level: Not on file Occupational History 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 Social Needs Financial resource strain: Not on file Food insecurity: Worry: Not on file Inability: Not on file Transportation needs: Medical: Not on file Non-medical: Not on file Tobacco Use Smoking status: Former Smoker Packs/day: 1.00 Years: 20.00 Pack years: 20.00 Last attempt to quit: 07/10/2013 Years since quittin.8 Smokeless tobacco: Never Used Substance and Sexual Activity Alcohol use: No Drug use: Yes Types: Marijuana Comment: currently using Sexual activity: Not on file Lifestyle Physical activity: Days per week: Not on file Minutes per session: Not on file Stress: Not on file Relationships Social connections: Talks on phone: Not on file Gets together: Not on file Attends jewish service: Not on file Active member of club or organization: Not on file Attends meetings of clubs or organizations: Not on file Relationship status: Not on file Other Topics Concern Not on file Social History Narrative Not on file Previous Medications Medication Sig albuterol (ACCUNEB) 0.63 mg/3 mL nebulizer solution Take 1 ampule by nebulization every 6 (six) hours as needed for wheezing. albuterol (PROVENTIL HFA;VENTOLIN HFA) 90 mcg/actuation inhaler Inhale 2 puffs every 6 (six) hours as needed for wheezing. amLODIPine (NORVASC) 5 MG tablet Take 10 mg by mouth daily . cholecalciferol, vitamin D3, 1,000 unit tablet Take 1,000 Units by mouth daily. doxepin (SINEQUAN) 50 MG capsule Take 50 mg by mouth nightly as needed for sleep. DULoxetine (CYMBALTA) 60 MG capsule Take 60 mg by mouth daily. ferrous sulfate 325 (65 FE) MG tablet Take 325 mg by mouth daily with breakfast. fluticasone/umeclidin/vilanter (TRELEGY ELLIPTA INHL) Inhale . levothyroxine (SYNTHROID, LEVOTHROID) 112 MCG tablet Take 112 mcg by mouth daily lisinopril (PRINIVIL,ZESTRIL) 40 MG tablet Take 40 mg by mouth daily. omeprazole (PRILOSEC) 40 MG capsule Take 40 mg by mouth daily . tiZANidine (ZANAFLEX) 4 MG capsule Take 4 mg by mouth nightly. Pt takes 3 pills for a total of 12mg Allergies Allergen Reactions Naproxen Penicillins Unknown Was told as a child that she is allergic, but has never taken it to know the reaction. Childhood reaction Review of Systems Constitutional: Negative. Respiratory: Negative. Cardiovascular: Negative. Genitourinary: Negative. Musculoskeletal: Positive for arthralgias and back pain. Negative for gait problem, joint swelling, myalgias, neck pain and neck stiffness. Skin: Negative. Neurological: Slight numbness and tingling intermittently to right lower extremity Patient Vitals for the past 24 hrs: BP Temp Temp src Pulse Resp SpO2 Height Weight 05/07/19 1542 127/77 98.2 F (36.8 C) Oral (!) 107 14 96 % 05/07/19 1515 5' 5 93.4 kg (206 lb) Physical Exam Constitutional: She is oriented to person, place, and time. She appears well-developed and well-nourished. Cardiovascular: Normal rate, regular rhythm, normal heart sounds and intact distal pulses. Pulmonary/Chest: Effort normal and breath sounds normal. Abdominal: Soft. Bowel sounds are normal. Musculoskeletal: Normal range of motion. Neurological: She is alert and oriented to person, place, and time. Skin: Skin is warm and dry. Capillary refill takes less than 2 seconds. Laboratory & Radiographic Imaging (if done): No results found for this visit on 05/07/19. No orders to display Procedures MDM Number of Diagnoses or Management Options Diagnosis management comments: Presents to ED with complaints of right leg pain and numbness and tingling. Is able to ambulate per her norm. Denies injury. Nurse's triage reflects that patient told them her symptoms began a few days ago, however, in review of her past medical records, this is in fact not new. This dates back to prior to 2018 when she had a fall from horse. She follows with pain management, Dr. Dozier as well as spine Dr. Mancini. She has a history of chronic pain syndrome, depression, arthritis, and back pain. She is on Zanaflex and Cymbalta routinely. She did have an MRI last month ordered by Dr. Dozier for this same right hip, thigh, pain numbness and tingling. MRI showed osteoarthritis bilateral hips as well as tendinopathy right gluteus minimus medius and mild greater trochanter bursitis. She states she has received injections from Dr. Dozeir as well as Dr. Mancini. Has also had physical therapy for this pain. Reports better effectiveness from Dr. Mancini's injections in her lower back compared to Dr. Dozier's injection into her right butt cheek area. Denies bowel and bladder incontinence. Is able to ambulate per her norm. There is no skin discoloration noted. Positive distal pulse. Cap refill less than 2 seconds. Patient will receive a dose of prednisone and have a Lidoderm patch placed here. She will be discharged home with prescription for prednisone. She understands she needs to follow-up with either Dr. Dozier or Dr. Mancini for her chronic pain. She is in agreement to treatment plan and discharge home. Discharged in stable condition with stable vital signs. . Clinical Impression: SNOMED CT(R) 1. Right leg pain PAIN IN RIGHT LOWER LIMB 2. Chronic pain syndrome CHRONIC PAIN SYNDROME 3. Bursitis, unspecified site BURSITIS ED Disposition ED Disposition Condition Comment Discharge Stable Radha Shafer discharged to home/self care in stable condition. Follow-up Information 1. Rivas Mancini DO. Specialties: General Surgery, Pain Management, Physical Medicine/Rehabilitation Why: Call first thing in the morning to arrange for follow-up [address] [facility] [address] 2. Rusty Dozier MD. Specialty: Neurology Why: Call first thing in the morning to arrange for follow-up [address] [facility] [address] Contact information for after-discharge care Follow-up information has not been specified. New Prescriptions predniSONE (DELTASONE) 10 MG tablet Take 2 (two) tablets (20 mg total) by mouth daily for 5 days . lidocaine (LIDODERM) 5 % patch Place 1 (one) patch on the skin daily Apply to right thigh /leg area. Remove & Discard patch within 12 hours or as directed by for 5 days . Natalee Ghosh CNP 05/07/19 1744 Pt reports her leg has been numb x 4 days, and she states she has a history of this. Pt also reports that she has tried to get into her doctors office, but they were unable to take her documented in this encounter Scheduled Active and Recently Administ ered Medications (unrecognized section and content) Medication Order 04/12/2021 04/13/2021 04/14/2021 labetaloL (NORMODYNE) injection 20 mg (COMPLETED) 20 mg, Intravenous, Once, On Mon04/14/21 at 1650, For 1 dose 1737 (Given - Provid er: Aleyda Thomas RN) labetaloL (NORMODYNE) injection 20 mg (COMPLETED) 20 mg, Intravenous, Once, On Mon04/14/21 at 1710, For 1 dose 1825 (Given - Provid er: Shira Armstrong RN) sodium chloride 0.9% (NS) bolus 1,000 mL (COMPLETED) 1,000 mL, Intravenous, at 1,000 mL/hr, Once, On Mon04/14/21 at 1550, For 1 dose 1625 (New Bag - Prov ider: Aleyda Thomas RN)1725 (Stopped - Provider: lAeyda Thomas RN) Scheduled Medication Order 04/02/2022 04/03/2022 04/04/2022 acetaminophen (TYLENOL ER) extended-release tablet 1,300 mg 1,300 mg, Oral, Every 8 hours scheduled, First dose on Mon03/30/22 at 2200, PACU to Post Procedure, Do not give within 6 hours of last dose of IV acetaminophen (OFIRMEV) or last dose of oral acetaminophen. Maximum dose of 4 grams in 24 hours. 0100 (Given - Provider: Bran Piedra RN - Comment: q8)0800 (Not Given - Provider: Shaina Juárez RN - Reason: Contraindicated - Comment: would be overdose)1430 (Given - Provider: Shaina Juárez RN)2200 (Not Given - Provider: Dinorah Arriaza RN - Reason: Patient/family refused) 0600 (Not Given - Provider: Dinorah Arriaza RN - Reason: Patient/family refused)1520 (Given - Provider: Shaina Juárez RN)2132 (Given - Provider: Delon Gavin RN) 0757 (Given - Provider: Delon Gavin RN) amLODIPine (NORVASC) tablet 10 mg 10 mg, Oral, Daily, First dose on Mon03/30/22 at 1999, PACU to Post Procedure 0812 (Given - Provider: Shaina Juárez RN) 0853 (Given - Provider: Shaina Juárez RN) 0936 (Given - Provider: Delon Gavin RN) aspirin chewable tablet 81 mg 81 mg, Oral, Daily, First dose on Mon03/30/22 at 1999, PACU to Post Procedure 0900 (Given - Provider: Shaina Juárez RN) 0854 (Given - Provider: Shaina Juárez RN) 0941 (Given - Provider: Delon Gavin RN) budesonide-formoteroL (SYMBICORT) 80-4.5 mcg/actuation inhaler 2 puff 2 puff, Inhalation, 2 times daily (RT), First dose on Mon03/30/22 at 1999, SPACER REQUIRED FOR ADMINISTRATION 0900 (Given - Provider: Shaina Juárez RN)2150 (Given - Provider: Dinorah Arriaza RN) 0857 (Given - Provider: Shaina Juárez RN)2130 (Given - Provider: Delon Gavin RN) 0936 (Given - Provider: Delon Gavin RN) buPROPion (WELLBUTRIN) tablet 75 mg 75 mg, Oral, Daily, First dose on Mon03/30/22 at 1999, PACU to Post Procedure, Do Not Crush or Chew if administering orally due to bitter taste. May be crushed if given via tube. 0812 (Given - Provider: Shaina Juárez RN) 0854 (Given - Provider: Shaina Juárez RN) 0935 (Given - Provider: Delon Gavin RN) cholecalciferol (vitamin D3) tablet 1,000 Units 1,000 Units, Oral, Daily, First dose on Mon03/31/22 at 0900, PACU to Post Procedure 0811 (Given - Provider: Shaina Juárez RN) 0853 (Given - Provider: Shaina Juárez RN) 0935 (Given - Provider: Delon Gavin, RN) DULoxetine (CYMBALTA) DR capsule 60 mg 60 mg, Oral, Daily, First dose on Mon03/30/22 at 2100, PACU to Post Procedure, DO NOT CRUSH OR CHEW. 0811 (Given - Provider: Shaina Juárez RN) 0854 (Given - Provider: Shaina Juárez RN) 0935 (Given - Provider: Delon Gavin, RN) gabapentin (NEURONTIN) capsule 100 mg 100 mg, Oral, 3 times daily, First dose on Mon03/30/22 at 2100, PACU to Post Procedure 0900 (Given - Provider: Shaina Juárez RN)1429 (Given - Provider: Shaina Juárez RN)215 (Given - Provider: Dinorah Arriaza RN) 0854 (Given - Provider: Shaina Juárez RN)1520 (Given - Provider: Shaina Juárez RN)2130 (Given - Provider: Delon Gavin, JASON) 0941 (Given - Provider: Delon Gavin, JASON) heparin (porcine) injection 5,000 Units 5,000 Units, Subcutaneous, Every 8 hours scheduled, First dose on Mon03/31/22 at 0600, PACU to Post Procedure, Notify physician if patient refuses. 0600 (Given - Provider: Bran Piedra RN)1429 (Given - Provider: Shaina Juárez RN)215 (Given - Provider: Dinorah Arriaza RN) 0546 (Given - Provider: Dinorah Arriaza RN)1520 (Given - Provider: Shaina Juárez RN)2130 (Given - Provider: Delon Gavin RN) 0800 (Given - Provider: Delon Gavin RN) insulin lispro (AdmeLOG,HumaLOG) injection 0-15 Units 0-15 Units, Subcutaneous, At bedtime, First dose (after last modification) on Mon03/31/22 at 2100, PACU to Post Procedure, For Nightly Insulin Dose Coverage, use: CORRECTIVE (Only) for BG greater than 300, Nightly CORRECTIVE Dose Method: Follow Corrective SCALE, Corrective Scale to use for BG > 300: Normal Sensitivity Scale, For Downtime Calculator, use: Insulin SC NIGHTtime 2100 (Not Given - Provider: Dinorah Arriaza RN - Reason: Order parameters not met) 213 (Not Given - Provider: Delon Gavin RN - Reason: Order parameters not met) insulin lispro (AdmeLOG,HumaLOG) injection 0-30 Units 0-30 Units, Subcutaneous, 3 times daily before meals, First dose on Gege 03/31/22 at 0730, PACU to Post Procedure, Dose should be given 10-15 minutes before a meal. If poor oral intake, nausea or blood glucose value < 80 before meal, give of the dose (rounded up to nearest unit) immediately after meal completed. If patient skipping meal, hold base prandial dose and continue to use corrective insulin as ordered. Once diet resumed, total base prandial + corrective doses may be given., Prandial Insulin Dosing Method: NO Prandial Dose - Corrective Scale ONLY, Corrective Insulin Regimen (select desired scale to cover BG result): Normal Sensitivity Scale, For Downtime Calculator, use: Insulin SC MEALtime PREprandial 0730 (Not Given - Provider: Shaina Juárez RN - Reason: Order parameters not met)1241 (Given - Provider: Shaina Juárez RN)1630 (Not Given - Provider: Shaina Juárez RN - Reason: Order parameters not met) 0730 (Canceled Entry - Provider: Shaina Juárez RN - Comment: BG not checked before eating)1130 (Not Given - Provider: Shaina Juárez RN - Reason: Order parameters not met)1654 (Given - Provider: Shaina Juárez RN) 0730 (Not Given - Provider: Delon Gavin RN - Reason: Order parameters not met)1130 (Due) levothyroxine (SYNTHROID, LEVOTHROID) tablet 112 mcg 112 mcg, Oral, Daily, First dose on Gege 03/31/22 at 0600, PACU to Post Procedure, For patients on continuous tube feed: Hold TF from 1 hr before until 1 hr after each dose. TF rate may need adjustment to meet caloric needs. 0556 (Given - Provider: Bran Piedra RN) 0543 (Given - Provider: Dinorah Arriaza, JASON) 0758 (Given - Provider: Delon Gavin, RN) lisinopriL (PRINIVIL,ZESTRIL) tablet 40 mg 40 mg, Oral, Daily, First dose on Mon03/30/22 at 2000, PACU to Post Procedure 0811 (Given - Provider: Shaina Juárez RN) 0853 (Given - Provider: Shaina Juárez RN) 0935 (Given - Provider: Delon Gavin, RN) pantoprazole (PROTONIX) EC tablet 40 mg 40 mg, Oral, Daily, First dose on Mon03/30/22 at 2000, PACU to Post Procedure, DO NOT CRUSH OR CHEW. 0900 (Given - Provider: Shaina Juárez RN) 0900 (Given - Provider: Shaina Juárez RN) 0941 (Given - Provider: Delon Gavin, JASON) sodium chloride (PF) (NS) flush 5 mL(Linked Group 1) 5 mL, Intravenous, Every 8 hours scheduled, First dose on Mon03/30/22 at 2200, PACU to Post Procedure, Saline lock 0600 (Canceled Entry - Provider: Bran Piedra RN)1400 (Canceled Entry - Provider: Shaina Juárez RN)2159 (Given - Provider: Dinorah Arriaza RN) 0547 (Given - Provider: Dinorah Arriaza, JASON)1400 (Given - Provider: Shaina Juárez RN)2200 (Canceled Entry - Provider: Delon Gavin RN) 0600 (Canceled Entry - Provider: Delon Gavin, JASON) tamsulosin (FLOMAX) 24 hr capsule 0.4 mg 0.4 mg, Oral, After evening meal, First dose on Mon04/01/22 at 1800, DO NOT CRUSH OR CHEW. Give 30 minutes after the same meal daily. Monitor for orthostasis due to potential risk of syncope. 1822 (Given - Provider: Shaina Juárez RN) 1657 (Given - Provider: Shaina Juárez RN)1800 (Canceled Entry - Provider: Shaina Juárez RN) tiotropium bromide (SPIRIVA RESPIMAT) 2.5 mcg/actuation inhaler 2 puff 2 puff, Inhalation, Daily (RT), First dose on Gege 03/31/22 at 0900 0815 (Given - Provider: Shaina Juárez RN) 0857 (Given - Provider: Shaina Juárez RN) 0900 (Due) triheptanoin Liqd 18 mL 18 mL, Oral, 4 times daily, First dose (after last modification) on Gege 03/31/22 at 1200 0814 (Given - Provider: Shaina Juárez RN)1241 (Given - Provider: Shaina Juárez RN)1822 (Given - Provider: Shaina Juárez RN)2151 (Given - Provider: Dinorah Arriaza RN) 0855 (Given - Provider: Shaina Juárez RN)1323 (Given - Provider: Shaina Juárez RN)1655 (Given - Provider: Shaina Juárez RN)2133 (Given - Provider: Delon Gavin RN) 0944 (Given - Provider: Delon Gavin RN) PRN Medication Order 04/02/2022 04/03/2022 04/04/2022 albuterol inhaler 2 puff 2 puff, Inhalation, Every 6 hours PRN (RT), wheezing, Starting on Mon03/30/22 at 1933, PACU to Post Procedure, SPACER REQUIRED FOR ADMINISTRATION doxepin (SINEQUAN) capsule 50 mg 50 mg, Oral, Nightly PRN, sleep, Starting on Mon03/30/22 at 1924, PACU to Post Procedure, May cause QT interval prolongation. labetaloL (NORMODYNE,TRANDATE) injection 10 mg (CANCELED) 10 mg, Intravenous, Every 4 hours PRN, Systolic >170, Starting on Mon03/30/22 at 2209 0533 (Given - Provider: Bran Piedra RN)1634 (Given - Provider: Shaina Juárez RN)2210 (Given - Provider: Dinorah Arriaza RN) 0204 (Given - Provider: Dinorah Arriaza RN)0547 (Given - Provider: Dinorah Arriaza RN) labetaloL (NORMODYNE,TRANDATE) injection 10 mg 10 mg, Intravenous, Every 4 hours PRN, Systolic >185, Starting on 04/03/22 at 0752 2345 (Given - Provider: Delon Gavin RN) levalbuterol (XOPENEX) nebulizer solution 1.25 mg 1.25 mg, Nebulization, Every 6 hours PRN (RT), wheezing, Starting on Mon03/30/22 at 1924, PACU to Post Procedure, QS to total volume of 3ml with NS ondansetron (ZOFRAN) injection 4 mg(Linked Group 2) 4 mg, Intravenous, Every 6 hours PRN, nausea, vomiting, Starting on Mon03/30/22 at 1924, PACU to Post Procedure, Oral or IV - use oral route if tolerated ondansetron (ZOFRAN-ODT) disintegrating tablet 4 mg(Linked Group 2) 4 mg, Oral, Every 6 hours PRN, nausea, vomiting, Starting on Mon03/30/22 at 1924, PACU to Post Procedure, Oral or IV - use oral route if tolerated Formulation requires tablet remain in sealed package until immediately prior to dose being administered. oxyCODONE (ROXICODONE) immediate release tablet 5 mg 5 mg, Oral, Every 4 hours PRN, moderate to severe pain, Starting on Gege 03/31/22 at 0839 sodium chloride (PF) (NS) flush 5 mL(Linked Group 1) 5 mL, Intravenous, As needed, line care, Starting on Mon03/30/22 at 1924, PACU to Post Procedure sodium chloride 0.9% (NS)(Linked Group 1) 0-150 mL/hr, Intravenous, As needed, To flush line after IV infusions when no maintenance IV ordered or a compatibility issue. Infuse 20ml at the same rate as the secondary infusion, Starting on Mon03/30/22 at 1924, PACU to Post Procedure, Run as Primary IV. NOT intended for KVO. traZODone (DESYREL) tablet 50 mg 50 mg, Oral, Nightly PRN, sleep, Starting on Mon03/30/22 at 1924, PACU to Post Procedure, [] May repeat X1 in 30 minutes if still awake. Linked Groups Order Group 1: Saline lock IV (CANCELED) Routine, Continuous, Starting on Mon03/30/22 at 1925, Until Specified
PACU to Post Procedure And sodium chloride (PF) (NS) flush 5 mLJump to med 5 mL, Intravenous, As needed, line care, Starting on Mon03/30/22 at 1924, PACU to Post Procedure And sodium chloride (PF) (NS) flush 5 mLJump to med 5 mL, Intravenous, Every 8 hours scheduled, First dose on Mon03/30/22 at 2200, PACU to Post Procedure
Saline lock
And sodium chloride 0.9% (NS)Jump to med 0-150 mL/hr, Intravenous, As needed, To flush line after IV infusions when no maintenance IV ordered or a compatibility issue. Infuse 20ml at the same rate as the secondary infusion, Starting on Mon03/30/22 at 1924, PACU to Post Procedure
Run as Primary IV. NOT intended for KVO.
Group 2: ondansetron (ZOFRAN-ODT) disintegrating tablet 4 mgJump to med 4 mg, Oral, Every 6 hours PRN, nausea, vomiting, Starting on Mon03/30/22 at 1924, PACU to Post Procedure
Oral or IV - use oral route if tolerated Formulation requires tablet remain in sealed package until immediately prior to dose being administered.
Or ondansetron (ZOFRAN) injection 4 mgJump to med 4 mg, Intravenous, Every 6 hours PRN, nausea, vomiting, Starting on Mon03/30/22 at 1924, PACU to Post Procedure
Oral or IV - use oral route if tolerated
Scheduled Medication Order 06/27/2022 06/28/2022 06/29/2022 amLODIPine (NORVASC) tablet 10 mg 10 mg, Oral, Daily, First dose on Mon06/24/22 at 1000 0828 (Given - Provider: Amelia Rice RN) 0915 (Given - Provider: Rd Blank RN) 0855 (Given - Provider: Angela Davila RN) azithromycin (ZITHROMAX) tablet 250 mg (CANCELED) 250 mg, Oral, Daily, First dose on Mon06/27/22 at 0900, For 4 doses, Indication: COPD Exacerbation 0828 (Given - Provider: Amelia Rice RN) buPROPion (WELLBUTRIN) tablet 75 mg 75 mg, Oral, 2 times daily, First dose on Mon06/21/22 at 2130, Do Not Crush or Chew if administering orally due to bitter taste. May be crushed if given via tube. 0828 (Given - Provider: Amelia Rice RN)2100 (Not Given - Provider: Sapna Maldonado RN - Reason: Patient/family refused - Comment: Patient stated she takes once daily in the morning.) 914 (Given - Provider: Rd Blank RN)2023 (Given - Provider: Lexis Dorado LPN) 0855 (Given - Provider: Angela Davila, RN) ciprofloxacin HCl (CIPRO) tablet 500 mg 500 mg, Oral, Daily, First dose on Mon06/28/22 at 1000, For patients on continuous tube feed: Hold TF from 1 hr before until 2 hrs after each dose. TF rate may need adjustment to meet caloric needs., Indication: Infectious Diarrhea 914 (Given - Provider: Rd Blank RN) 0855 (Given - Provider: Angela Davila, RN) DULoxetine (CYMBALTA) DR capsule 60 mg 60 mg, Oral, Daily, First dose on Mon06/22/22 at 0900, DO NOT CRUSH OR CHEW. 08 (Given - Provider: Amelia Rice RN) 914 (Given - Provider: Rd Blank RN) 0855 (Given - Provider: Angela Davila, RN) hydrALAZINE (APRESOLINE) tablet 25 mg (CANCELED) 25 mg, Oral, Every 8 hours scheduled, First dose (after last modification) on 06/25/22 at 1400 0548 (Given - Provider: Silvia Jarrett LPN) ipratropium-albuteroL (DUO-NEB) 0.5-2.5 mg/3 ml nebulizer solution 3 mL 3 mL, Inhalation, Every 6 hours while awake (RT), First dose on 06/26/22 at 1200 0724 (Given - Provider: Margie Huynh, GILDA)1425 (Given - Provider: Margie Huynh, GILDA)1913 (Given - Provider: Cecille Maria RRT) 0720 (Given - Provider: Maureena R Huynh, WOOL HANDLER)1404 (Given - Provider: Margie Huynh, WOOL HANDLER)2048 (Given - Provider: Mike Esqueda, WOOL HANDLER) 0716 (Given - Provider: Aleisha Pickett, GILDA)1400 (Due) levothyroxine (SYNTHROID, LEVOTHROID) tablet 175 mcg 175 mcg, Oral, Daily, First dose (after last modification) on Mon06/22/22 at 0600, For patients on continuous tube feed: Hold TF from 1 hr before until 1 hr after each dose. TF rate may need adjustment to meet caloric needs. 0635 (Given - Provider: Silvia Jarrett LPN) 0536 (Given - Provider: Sapna Maldonado, JASON) 0554 (Given - Provider: Lexis Dorado LPN) loperamide (IMODIUM) capsule 2 mg 2 mg, Oral, 3 times daily, First dose (after last modification) on Mon06/28/22 at 1000, Do not exceed 16 MG (8 caps)/ 24 HRS 0915 (Given - Provider: Rd Blnak RN)1402 (Given - Provider: Rd Blank RN)2023 (Given - Provider: Lexis Dorado LPN) 0854 (Given - Provider: Angela Davila RN) magnesium sulfate 2 g in sterile water (SW) 50 mL IVPB (COMPLETED) 2 g, Intravenous, at 50 mL/hr, Once, On Mon06/28/22 at 1145, For 1 dose 1224 (New Bag - Provider: Rd Blank RN) 0900 (Stopped - Provider: Angela Davila, JASON) metoprolol tartrate (LOPRESSOR) tablet 25 mg 25 mg, Oral, 2 times daily, First dose on Mon06/27/22 at 1230 1230 (Canceled Entry - Provider: Amelia Rice, JASON)2013 (Given - Provider: Sapna Maldonado RN) 0915 (Given - Provider: Rd Blank RN)2199 (Given - Provider: Lexis Dorado LPN) 0854 (Given - Provider: Angela Davila RN) metroNIDAZOLE (FLAGYL) tablet 500 mg 500 mg, Oral, 3 times daily with meals, First dose on Mon06/24/22 at 1700, For 7 days, Indication: Other: (specify), Indication: infectious colitis 0828 (Given - Provider: Amelia Rice RN)1323 (Given - Provider: Amelia Rice RN)1718 (Given - Provider: Lawanda Baker RN) 0915 (Given - Provider: Rd Blank, JASON)1325 (Given - Provider: Rd Blank, RN)1648 (Given - Provider: Rd Blank, RN) 0854 (Given - Provider: Angela Davila RN)1339 (Given - Provider: Angela Davila RN) pantoprazole (PROTONIX) EC tablet 40 mg 40 mg, Oral, Daily, First dose on Mon06/28/22 at 0930, DO NOT CRUSH OR CHEW. 0915 (Given - Provider: Rd Blank RN) 0854 (Given - Provider: Angela Davila RN) pantoprazole (PROTONIX) injection 40 mg (CANCELED) 40 mg, Intravenous, Daily, First dose on Mon06/22/22 at 1330, Dilute each vial with 10 mL of 0.9% NaCl. 0828 (Given - Provider: Amelia Rice RN) predniSONE (DELTASONE) tablet 40 mg (CANCELED) 40 mg, Oral, Daily with breakfast, First dose on Mon06/26/22 at 1100 0828 (Given - Provider: Amelia Rice RN) sodium chloride (PF) (NS) flush 5 mL(Linked Group 1) 5 mL, Intravenous, Every 8 hours scheduled, First dose on Mon06/21/22 at 1405, Saline lock 0548 (Given - Provider: Silvia Jarrett LPN)1324 (Given - Provider: Amelia Rice RN)2200 (Not Given - Provider: Sapna Maldonado RN - Reason: Contraindicated - Comment: IV fluids infusing at this time) 0600 (Not Given - Provider: Sapna Maldonado RN - Reason: Other - Comment: Task already completed)1400 (Not Given - Provider: Rd Blank RN - Reason: Other - Comment: iv infusing)2200 (Canceled Entry - Provider: Leixs Dorado LPN) 0600 (Canceled Entry - Provider: Lexis Dorado LPN)1400 (Due) triheptanoin Liqd 18 mL 18 mL, Oral, 4 times daily, First dose on Mon06/25/22 at 2100, Drug Name: triheptanoin, Form: Liquid, Dose: 18, Dose Units: mL, Length of Therapy: Indefinite, How soon needed? (normally 72 hrs needed to procure): 0-24 hrs, Reason for Non-Formulary: Patient Supplied Medication 0829 (Given - Provider: Amelia Rice RN)1300 (Not Given - Provider: Amelia Rice RN - Reason: Patient/family refused)1340 (Given - Provider: Amelia Rice RN)1718 (Given - Provider: Lawanda Baker, RN)2100 (Not Given - Provider: Sapna Maldonado RN - Reason: Patient/family refused) 0915 (Given - Provider: Rd Blank RN)1325 (Given - Provider: Rd Blank RN)1648 (Given - Provider: Rd Blank RN)2100 (Not Given - Provider: Lexis Dorado LPN - Reason: Patient/family refused) 0854 (Given - Provider: Angela Davila RN)1300 (Not Given - Provider: Angela Davila RN - Reason: Patient/family refused) Continuous Medication Order 06/27/2022 06/28/2022 06/29/2022 sodium chloride 0.9% (NS) () 75 mL/hr, Intravenous, Continuous, Starting on 06/27/22 at 1600, For 26 hours, 2 L 1528 (New Bag - Provider: Amelia Rice RN)1528 (Paused - Provider: Sapna Maldonado RN)1528 (Restarted - Provider: Sapna Maldonado RN)1528 (Paused - Provider: Sapna Maldonado, RN)1612 (Restarted - Provider: Lawanda Baker, JASON)2017 (Paused - Provider: Sapna Maldonado RN)2017 (Restarted - Provider: Sapna Maldonado RN)2019 (Paused - Provider: Sapna Maldonado RN)2019 (Restarted - Provider: Sapna Maldonado RN) 0533 (Rate/Dose Change - Provider: Sapna Maldonado RN)0534 (Rate/Dose Change - Provider: Sapna Maldonado RN)0536 (Stopped - Provider: Sapna Maldonado RN)0536 (New Bag - Provider: Sapna Maldonado RN)0538 (Rate/Dose Verify - Provider: Sapna Maldonado RN) 1048 (Stopped - Provider: Angela Davila RN) sodium chloride 0.9% (NS) 75 mL/hr, Intravenous, Continuous, Starting on Mon06/28/22 at 1145, For 26 hours, 2 L 1649 (New Bag - Provider: Rd Blank RN - Comment: Moved time, old order still infusing)2327 (Paused - Provider: Lexis Dorado LPN)2329 (Restarted - Provider: Lexis Dorado LPN) 0554 (Stopped - Provider: Lexis Dorado LPN)0554 (New Bag - Provider: Lexis Dorado LPN)0632 (Rate/Dose Verify - Provider: Lexis Dorado LPN)0727 (Paused - Provider: Angela Davila RN)0735 (Restarted - Provider: Angela Davila RN)0737 (Paused - Provider: Angela Davila RN)0744 (Restarted - Provider: Angela Davila RN)1044 (Rate/Dose Verify - Provider: Angela Davila RN)1046 (Stopped - Provider: Angela Davila RN) PRN Medication Order 06/27/2022 06/28/2022 06/29/2022 albuterol (PROVENTIL) 2.5 mg /3 mL (0.083 %) nebulizer solution 0.63 mg 0.63 mg, Nebulization, Every 6 hours PRN (RT), wheezing, Starting on Mon06/21/22 at 2026 butalbital-acetaminophen -caffeine (ESGIC) per tablet 1 tablet 1 tablet, Oral, Every 4 hours PRN, headaches, Starting on Mon06/25/22 at 1512 0553 (Given - Provider: Silvia Jarrett LPN) doxepin (SINEQUAN) capsule 50 mg 50 mg, Oral, Nightly PRN, sleep, Starting on Mon06/21/22 at 2022, May cause QT interval prolongation. 2016 (Given - Provider: Sapna Maldonado RN) hydrALAZINE (APRESOLINE) injection 10 mg 10 mg, Intravenous, Every 4 hours PRN, systolic >160, Starting on Mon06/24/22 at 1828 loperamide (IMODIUM) capsule 2 mg (CANCELED) 2 mg, Oral, 4 times daily PRN, diarrhea, Starting on Mon06/22/22 at 1147, Do not exceed 16 MG (8 caps)/ 24 HRS 1125 (Given - Provider: Amelia Rice RN) naloxone (NARCAN) injection 0.1 mg(Linked Group 2) 0.1 mg, Intravenous, As needed, opioid reversal, For respiratory rate less than or equal to 8 per minute., Starting on Mon06/21/22 at 205, Mix nalOXone (NARCAN) 0.4 mg (1mL) with 9 mL of Normal Saline to total 10 mL. Administer 0.1 mg (2.5mL) IV Push every 2 minutes until respiratory rate is 10 or greater. naloxone (NARCAN) injection 0.4 mg(Linked Group 2) 0.4 mg, Intravenous, As needed, opioid reversal, patient is pulseless, breathless, and unresponsive, Starting on Mon06/21/22 at 205, Call a code first, then administer naloxone dose undiluted IV Push over 30 seconds. oxyCODONE (ROXICODONE) immediate release tablet 5 mg 5 mg, Oral, Every 4 hours PRN, moderate to severe pain, Starting on Mon06/21/22 at 2057 2019 (Given - Provider: Sapna Maldonado RN) 0536 (Given - Provider: Sapna Maldonado RN)1325 (Given - Provider: Rd Blank RN)2023 (Given - Provider: Lexis Dorado LPN) 0854 (Given - Provider: Angela Davila, JASON) prochlorperazine (COMPAZINE) injection 5 mg 5 mg, Intravenous, Every 6 hours PRN, nausea, vomiting, Starting on Mon06/26/22 at 1248, If IV, give slow IV push at a rate not exceeding 5 mg/minute and remain lying down for 30 minutes to reduce risk of hypotension. If IM, inject deep into outer buttocks quadrant. sodium chloride (PF) (NS) flush 5 mL(Linked Group 1) 5 mL, Intravenous, As needed, line care, Starting on Mon06/21/22 at 1402 sodium chloride 0.9% (NS)(Linked Group 1) 0-150 mL/hr, Intravenous, As needed, To flush line after IV infusions when no maintenance IV ordered or a compatibility issue. Infuse 20ml at the same rate as the secondary infusion, Starting on Mon06/21/22 at 1402, Run as Primary IV. NOT intended for KVO. Linked Groups Order Group 1: Saline lock IV (CANCELED) Routine, Continuous, Starting on Mon06/21/22 at 1403, Until Specified And sodium chloride (PF) (NS) flush 5 mLJump to med 5 mL, Intravenous, As needed, line care, Starting on Mon06/21/22 at 1402 And sodium chloride (PF) (NS) flush 5 mLJump to med 5 mL, Intravenous, Every 8 hours scheduled, First dose on Mon06/21/22 at 1405
Saline lock
And sodium chloride 0.9% (NS)Jump to med 0-150 mL/hr, Intravenous, As needed, To flush line after IV infusions when no maintenance IV ordered or a compatibility issue. Infuse 20ml at the same rate as the secondary infusion, Starting on Mon06/21/22 at 1402
Run as Primary IV. NOT intended for KVO.
Group 2: naloxone (NARCAN) injection 0.1 mgJump to med 0.1 mg, Intravenous, As needed, opioid reversal, For respiratory rate less than or equal to 8 per minute., Starting on Mon06/21/22 at 2056
Mix nalOXone (NARCAN) 0.4 mg (1mL) with 9 mL of Normal Saline to total 10 mL. Administer 0.1 mg (2.5mL) IV Push every 2 minutes until respiratory rate is 10 or greater.
And Notify physician (CANCELED) STAT, Until discontinued, Starting on Mon06/21/22 at 2057, Until Specified
Respiratory rate less than: 8
For respiratory rate less than or equal to 8, notify physician and/or appropriate staff for additional orders. And naloxone (NARCAN) injection 0.4 mgJump to med 0.4 mg, Intravenous, As needed, opioid reversal, patient is pulseless, breathless, and unresponsive, Starting on Mon06/21/22 at 2057
Call a code first, then administer naloxone dose undiluted IV Push over 30 seconds.
Scheduled Medication Order 09/01/2024 09/02/2024 09/03/2024 albuterol (PROVENTIL) 2.5 mg /3 mL (0.083 %) nebulizer solution 2.5 mg 2.5 mg, Nebulization, Every 6 hours scheduled (RT), First dose on Mon09/02/24 at 1999 1919 (Given - Provider: Latrice Silva, WOOL HANDLER) 0243 (Given - Provider: Latrice Silva, GILDA)0711 (Given - Provider: Cecille Maria, GILDA)1404 (Given - Provider: Reema Anne, GILDA) aspirin chewable tablet 81 mg 81 mg, Oral, Daily, First dose on Mon09/02/24 at 1999 1999 (Not Given - Provider: Kayla Mujica RN - Reason: Patient/family refused) 09 (Given - Provider: Jaspreet Barnes, JASON) atorvastatin (LIPITOR) tablet 5 mg 5 mg, Oral, Nightly, First dose on Mon09/02/24 at 2100 2122 (Given - Provider: Kayla Mujica, JASON) cefTRIAXone (ROCEPHIN) IVPB 2 g (premix) (COMPLETED) 2,000 mg, Intravenous, at 100 mL/hr, Once, On Mon09/02/24 at 1220, For 1 dose, Indication: CAP 1300 (New Bag - Provider: Tram Perez RN)1429 (Stopped - Provider: Tram Perez RN) docusate sodium (COLACE) capsule 100 mg 100 mg, Oral, Daily, First dose on Mon09/03/24 at 0900, [] Hold for loose stools. DO NOT CRUSH OR CHEW. 09 (Given - Provid er: Jaspreet Barnes RN) doxycycline (VIBRAMYCIN) oral solid 100 mg 100 mg, Oral, Every 12 hours, First dose on Mon09/02/24 at 1999, Do not crush or open. Patient to sit up after administration for 30 minutes after taking and take with at least 8 ounces of water Take 1 hour before or 4 hours after metallic cations (e.g.antacids, aluminum,magnesium, calcium, ferrous sulfate), Indication: Bronchitis 2121 (Given - Provider: Kayla Mujica RN) 917 (Given - Provider: Jaspreet Barnes RN) DULoxetine (CYMBALTA) DR capsule 60 mg 60 mg, Oral, Daily, First dose on Mon09/02/24 at 1999, DO NOT CRUSH OR CHEW. 1999 (Not Given - Provider: Kayla Mujica RN - Reason: Patient/family refused) 917 (Given - Provider: Jaspreet Barnes RN) enoxaparin (LOVENOX) syringe 30 mg 30 mg, Subcutaneous, Daily, First dose on Mon09/02/24 at 1999, Administer in abdomen unless otherwise directed by prescriber. Notify physician if patient refuses., Indication: VTE Prophylaxis 1999 (Not Given - Provider: Kayla Mujica RN - Reason: Patient/family refused) 915 (Given - Provider: Jaspreet Barnes RN) ferrous sulfate tablet 325 mg 325 mg, Oral, Daily with breakfast, First dose on Mon09/03/24 at 0900, Do not administer within 2 hours of doxycycline 917 (Given - Provid er: Jaspreet Barnes RN) ipratropium-albuteroL (DUO-NEB) 0.5-2.5 mg/3 ml nebulizer solution 3 mL (COMPLETED) 3 mL, Inhalation, Once, On Mon09/02/24 at 1130, For 1 dose 1143 (Given - Provider: Cecille Perez, WOOL HANDLER) levothyroxine (SYNTHROID, LEVOTHROID) tablet 175 mcg 175 mcg, Oral, Daily, First dose on Mon09/03/24 at 0600, Avoid administration with soybean flour, cottonseed meal, walnuts, and dietary fiber. Administer at least 1 hour before breakfast. Hold continuous tube feeds for at least 1 hour before until 1 hour after each dose. Flush tube with 30mL of water before and after administration. Tube feed rate may need adjusted to meet caloric needs. lisinopriL (PRINIVIL,ZESTRIL) tablet 40 mg 40 mg, Oral, Daily, First dose on Mon09/02/24 at 1999 1999 (Not Given - Provider: Kayla Mujica RN - Reason: Other - Comment: patient takes in am) 09 (Given - Provider: Jaspreet Barnes, JASON) magnesium sulfate 2 g in sterile water (SW) 50 mL IVPB (COMPLETED) 2 g, Intravenous, at 50 mL/hr, Once, On Mon09/02/24 at 1130, For 1 dose 1149 (New Bag - Provider: Tram Perez, JASON)1241 (Stopped - Provider: Tram Perez, JASON) methylPREDNISolone sod suc(PF) (SOLU-medrol) 40 mg 40 mg, Intravenous, Every 12 hours scheduled, First dose on Mon09/02/24 at 2100, For 4 doses 2123 (Given - Provider: Kayla Mujica RN) 09 (Given - Provider: Jaspreet Barnes, JASON) methylPREDNISolone sod suc(PF) (SOLU-medrol) Injection 125 mg (COMPLETED) 125 mg, Intravenous, Once, On Mon09/02/24 at 1130, For 1 dose 1148 (Given - Provider: Tram Perez, JASON) metoprolol tartrate (LOPRESSOR) tablet 100 mg 100 mg, Oral, 2 times daily, First dose on Mon09/02/24 at 2100 2122 (Given - Provider: Kayla Mujica RN) 09 (Given - Provider: Jaspreet Barnes, JASON) mometasone-formoterol (DULERA) 200-5 mcg/actuation inhaler 2 puff(Linked Group 1) 2 puff, Inhalation, 2 times daily (RT), First dose on Mon09/02/24 at 1999 1999 (Not Given - Provider: Kayla Mujica RN - Reason: Patient/family refused) 917 (Given - Provider: Jaspreet Barnes, JASON) NIFEdipine (PROCARDIA XL) 24 hr tablet 30 mg 30 mg, Oral, Daily, First dose on Mon09/02/24 at 1999, DO NOT CRUSH OR CHEW. 2122 (Given - Provider: Kayla Mujica RN) 09 (Given - Provider: Jaspreet Barnes, JASON) pantoprazole (PROTONIX) EC tablet 40 mg 40 mg, Oral, Daily, First dose on Mon09/02/24 at 1999, DO NOT CRUSH OR CHEW. 2122 (Given - Provider: Kayla Mujica RN) 0919 (Given - Provider: Jaspreet Barnes RN) sodium chloride (PF) (NS) flush 5 mL(Linked Group 2) 5 mL, Intravenous, Every 8 hours scheduled, First dose on Mon09/03/24 at 0600, Saline lock 0600 (Not Given - Provider: Kayla Mujica RN - Reason: Other)1400 (Given - Provider: Jaspreet Barnes RN) tiotropium bromide (SPIRIVA RESPIMAT) 2.5 mcg/actuation inhaler 2 puff(Linked Group 1) 2 puff, Inhalation, Daily (RT), First dose on Mon09/02/24 at 2000 2000 (Not Given - Provider: Kayla Mujica RN - Reason: Patient/family refused) 0917 (Given - Provider: Jaspreet Barnes RN) tiZANidine (ZANAFLEX) tablet 4 mg 4 mg, Oral, 2 times daily, First dose on Mon09/03/24 at 0900 0916 (Given - Provid er: Jaspreet Barnes RN)1847 (Given - Provider: Jaspreet Barnes RN) triheptanoin liquid 20 mL (Patient Supplied) 20 mL, Oral, 3 times daily with meals, First dose on Mon09/03/24 at 0800, Prior to administration, mix with semisolid foods or liquids (eg, plain or artificially sweetened fat-free yogurt; fat-free milk or cottage cheese; whole grain hot cereal; fat-free, low-carbohydrate pudding; smoothies; applesauce). Administer at mealtime or with snacks; avoid administering alone due to GI upset. This is a patient supplied home medication. Please return to the patient upon discharge., Drug Name: triheptanoin, Form: Liquid, Dose: 20, Dose Units: mL, Length of Therapy: Indefinite, How soon needed? (normally 72 hrs needed to procure): 48-72 hrs, Reason for Non-Formulary: continuation of home med, Will this medication be patient supplied? Yes 0800 (Given - Provid er: Jaspreet Barnes RN)1200 (Not Given - Provider: Jaspreet Barnes RN - Reason: Other)1700 (Given - Provider: Jaspreet Barnes RN) Continuous Medication Order 09/01/2024 09/02/2024 09/03/2024 sodium chloride 0.9% (NS) 100 mL/hr, Intravenous, Continuous, Starting on Mon09/03/24 at 0930, For 5 hours 0930 (New Bag - Prov ider: Jaspreet Barnes RN) PRN Medication Order 09/01/2024 09/02/2024 09/03/2024 aluminum-magnesium hydroxide-simethicone (MAALOX PLUS) 200-200-20 mg/5 mL suspension 30 mL 30 mL, Oral, Every 4 hours PRN, indigestion, Starting on Mon09/02/24 at 1735, Do not administer within 2 hours of doxycycline doxepin (SINEQUAN) capsule 75 mg 75 mg, Oral, Nightly PRN, sleep, Starting on Mon09/02/24 at 1735, May cause QT interval prolongation. 0006 (Given - Provid er: Kayla Mujica RN) melatonin Tab 5 mg 5 mg, Oral, Nightly PRN, Sleep, Starting on Mon09/02/24 at 1735 nitroGLYCERIN (NITROSTAT) SL tablet 0.4 mg 0.4 mg, Sublingual, Every 5 min PRN, chest pain, Starting on Mon09/02/24 at 1735, For chest pain. May give up to 3 doses. Call physician for chest pain unrelieved by Nitroglycerin, or recurrent chest pain. DO NOT CRUSH OR CHEW. ondansetron (ZOFRAN-ODT) disintegrating tablet 4 mg 4 mg, Oral, Every 6 hours PRN, nausea, vomiting, Starting on Mon09/02/24 at 1735, Orally disintegrating tablet: Open blister pack and place tablet on the tongue; tablet is formulated to dissolve on the tongue without water; do not split tablet. Formulation requires tablet remain in sealed package until immediately prior to dose being administered. senna (SENOKOT) tablet 8.6 mg 8.6 mg (1 tablet), Oral, 2 times daily PRN, constipation, Starting on Mon09/02/24 at 1735 sodium chloride (PF) (NS) flush 5 mL(Linked Group 2) 5 mL, Intravenous, As needed, line care, Starting on Mon09/03/24 at 0159 sodium chloride 0.9% (NS)(Linked Group 2) 0-150 mL/hr, Intravenous, As needed, To flush line after IV infusions when no maintenance IV ordered or a compatibility issue. Infuse 20ml at the same rate as the secondary infusion, Starting on Mon09/03/24 at 0159, Run as Primary IV. NOT intended for KVO. tiZANidine (ZANAFLEX) tablet 12 mg 12 mg, Oral, Nightly PRN, muscle spasms, Starting on Mon09/02/24 at 2245 0007 (Given - Provid er: Kayla Mujica RN) Linked Groups Order Group 1: tiotropium bromide (SPIRIVA RESPIMAT) 2.5 mcg/actuation inhaler 2 puffJump to med 2 puff, Inhalation, Daily (RT), First dose on Mon09/02/24 at 1999 And mometasone-formoterol (DULERA) 200-5 mcg/actuation inhaler 2 puffJump to med 2 puff, Inhalation, 2 times daily (RT), First dose on Mon09/02/24 at 1999 Group 2: Saline lock IV (CANCELED) Routine, Continuous, Starting on Mon09/03/24 at 0200, Until Specified And sodium chloride (PF) (NS) flush 5 mLJump to med 5 mL, Intravenous, As needed, line care, Starting on Mon09/03/24 at 0159 And sodium chloride (PF) (NS) flush 5 mLJump to med 5 mL, Intravenous, Every 8 hours scheduled, First dose on Mon09/03/24 at 0600, Saline lock And sodium chloride 0.9% (NS)Jump to med 0-150 mL/hr, Intravenous, As needed, To flush line after IV infusions when no maintenance IV ordered or a compatibility issue. Infuse 20ml at the same rate as the secondary infusion, Starting on Mon09/03/24 at 0159, Run as Primary IV. NOT intended for KVO. Scheduled Medication Order 09/23/2024 09/24/2024 09/25/2024 aspirin chewable tablet 81 mg 81 mg, Oral, Daily, First dose on 09/22/24 at 0900 0845 (Given - Provider: Jaspreet Barnes RN) 0815 (Given - Provider: Anna Hairston) 0941 (Given - Provider: Berkley Back, RN) azithromycin (ZITHROMAX) 250 mg in sodium chloride 0.9 % (NS) 250 mL IVPB (CANCELED) 250 mg, Intravenous, at 250 mL/hr, Every 24 hours scheduled, First dose on 09/22/24 at 2330, For 5 days, Indication: COPD Exacerbation 0955 (New Bag - Provider: Jaspreet Barnes RN) azithromycin (ZITHROMAX) tablet 250 mg 250 mg, Oral, Daily, First dose on Mon09/24/24 at 0900, For 3 doses, Indication: COPD Exacerbation 0816 (Given - Provider: Anna Hairston) 0941 (Given - Provider: Berkley Back, JASON) budesonide (PULMICORT) nebulizer solution 0.5 mg 0.5 mg, Nebulization, 2 times daily (RT), First dose on 09/21/24 at 2330 0751 (Given - Provider: Aye Marshall, WOOL HANDLER)1912 (Given - Provider: Bindu Watson, WOOL HANDLER) 0707 (Given - Provider: Negar Wood, WOOL HANDLER)2108 (Given - Provider: Delmy Brock, WOOL HANDLER) 0812 (Given - Provider: Malika Davila, WOOL HANDLER) cefTRIAXone (ROCEPHIN) IVPB 2 g (premix) (CANCELED) 2,000 mg, Intravenous, at 100 mL/hr, Every 24 hours scheduled, First dose on 09/21/24 at 2330, Indication: CAP 0900 (New Bag - Provider: Jaspreet Barnes RN) cholecalciferol (vitamin D3) tablet 1,000 Units 1,000 Units, Oral, Daily, First dose on 09/22/24 at 0900 0845 (Given - Provider: Jaspreet Barnes RN) 0816 (Given - Provider: Anna Hairston) 0941 (Given - Provider: Berkley Back, JASON) docusate sodium (COLACE) capsule 100 mg 100 mg, Oral, Daily, First dose on 09/22/24 at 0900, [] Hold for loose stools. DO NOT CRUSH OR CHEW. 0846 (Given - Provider: Jaspreet Barnes RN) 0900 (Not Given - Provider: Jaspreet Barnes RN - Reason: Other - Comment: patient refused) 0900 (Not Given - Provider: Berkley Back, JASON - Reason: Contraindicated) doxepin (SINEQUAN) capsule 100 mg 100 mg, Oral, Nightly, First dose on Mon09/22/24 at 0030, May cause QT interval prolongation. 2013 (Given - Provider: Prema Fowler, RN) 2027 (Given - Provider: Lorna Velázquez RN) DULoxetine (CYMBALTA) DR capsule 60 mg 60 mg, Oral, Daily, First dose on Mon09/22/24 at 0900, DO NOT CRUSH OR CHEW. 0846 (Given - Provider: Jaspreet Barnes RN) 0815 (Given - Provider: nAna Hairston) 0941 (Given - Provider: Berkley Back, JASON) enoxaparin (LOVENOX) syringe 30 mg (CANCELED) 30 mg, Subcutaneous, Daily, First dose on Mon09/23/24 at 0900, Administer in abdomen unless otherwise directed by prescriber. Notify physician if patient refuses., Prophylaxis Indication: VTE Prophylaxis 0844 (Given - Provider: Jaspreet Barnes RN) enoxaparin (LOVENOX) syringe 40 mg 40 mg, Subcutaneous, Daily, First dose (after last modification) on Mon09/24/24 at 0900, Administer in abdomen unless otherwise directed by prescriber. Notify physician if patient refuses., Prophylaxis Indication: VTE Prophylaxis 1000 (Given - Provider: Anna Hairston - Comment: LLQ) 0941 (Given - Provider: Berkley Back, JASON) ferrous sulfate tablet 325 mg 325 mg, Oral, Daily with breakfast, First dose on Mon09/22/24 at 0800 0845 (Given - Provider: Jaspreet Barnes RN) 0815 (Given - Provider: Anna Hairston) 0941 (Given - Provider: Berkley Back, JASON) furosemide (LASIX) tablet 20 mg 20 mg, Oral, 2 times daily, First dose on Mon09/24/24 at 1200 1142 (Given - Provider: Anna Hairston)1804 (Given - Provider: Jaspreet Barnes RN) 0941 (Given - Provider: Berkley Back, JASON) levothyroxine (SYNTHROID, LEVOTHROID) tablet 175 mcg 175 mcg, Oral, Daily (in the evening), First dose on 09/22/24 at 0030, Avoid administration with soybean flour, cottonseed meal, walnuts, and dietary fiber. Administer at least 1 hour before breakfast. Hold continuous tube feeds for at least 1 hour before until 1 hour after each dose. Flush tube with 30mL of water before and after administration. Tube feed rate may need adjusted to meet caloric needs. 2013 (Given - Provider: Prema Fowler RN) 2027 (Given - Provider: Lorna Velázquez, JASON) lisinopriL (PRINIVIL,ZESTRIL) tablet 20 mg 20 mg, Oral, Daily, First dose on 09/22/24 at 1200, Hold for SBP<110 1353 (Given - Provider: Jaspreet Barnes RN) 1141 (Given - Provider: Anna Hairston) 1200 (Due) loratadine (CLARITIN) tablet 10 mg 10 mg, Oral, Daily, First dose on 09/22/24 at 0900 0844 (Given - Provider: Jaspreet Barnes RN) 1000 (Given - Provider: Anna Hairston) 0941 (Given - Provider: Berkley Back, JASON) methylPREDNISolone sod suc(PF) (SOLU-medrol) 40 mg () 40 mg, Intravenous, Every 8 hours scheduled, First dose on 09/21/24 at 2330, For 3 days 0537 (Given - Provider: Prema Fowler RN)1353 (Given - Provider: Jaspreet Barnes RN)2138 (Given - Provider: Prema Fowler RN) 0507 (Given - Provider: Prema Fowler RN)1340 (Given - Provider: Anna Hairston) metoprolol tartrate (LOPRESSOR) tablet 100 mg 100 mg, Oral, 2 times daily, First dose on 09/22/24 at 0030, Hold for HR<60 0845 (Given - Provider: Jaspreet Barnes RN)2013 (Given - Provider: Prema Fowler RN) 0815 (Given - Provider: Anna Hairston)2026 (Given - Provider: Lorna Velázquez, JASON) 0941 (Given - Provider: Berkley Back, JASON) NIFEdipine (PROCARDIA XL) 24 hr tablet 30 mg 30 mg, Oral, Daily, First dose on 09/22/24 at 0900, Hold for SBP<110 DO NOT CRUSH OR CHEW. 0845 (Given - Provider: Jaspreet Barnes RN) 0816 (Given - Provider: Anna Hairston) 0941 (Given - Provider: Berkley Back, RN) pantoprazole (PROTONIX) EC tablet 40 mg 40 mg, Oral, Daily, First dose on 09/22/24 at 0900, DO NOT CRUSH OR CHEW. 0845 (Given - Provider: Jaspreet Barnes RN) 0815 (Given - Provider: Anna Hairston) 0941 (Given - Provider: Berkley Back, RN) rifAXIMin (XIFAXAN) tablet 550 mg 550 mg, Oral, 3 times daily, First dose on Mon09/24/24 at 1500, For 14 days, Indication: IBS 1348 (Given - Provider: Anna Hairston - Comment: patient request)1500 (Canceled Entry - Provider: Jaspreet Barnes RN)2026 (Given - Provider: Lorna Velázquez RN) 0941 (Given - Provider: Berkley Back RN) sodium chloride (PF) (NS) flush 5 mL(Linked Group 1) 5 mL, Intravenous, Every 8 hours scheduled, First dose on 09/22/24 at 0030, Saline lock 0600 (Given - Provider: Prema Fowler RN)1400 (Given - Provider: Jaspreet Barnes RN)2137 (Given - Provider: Prema Fowler RN) 0600 (Given - Provider: Prema Fowler RN)1400 (Given - Provider: Jaspreet Barnes RN)2026 (Given - Provider: Lorna Velázquez RN) 0626 (Given - Provider: Lorna Velázquez RN)1400 (Due) tiotropium bromide (SPIRIVA RESPIMAT) 2.5 mcg/actuation inhaler 2 puff 2 puff, Inhalation, Daily (RT), First dose on 09/22/24 at 0900 0846 (Given - Provider: Jaspreet Barnes RN) 0817 (Given - Provider: Anna Hairston) 0942 (Given - Provider: Berkley Back, JASON) tiZANidine (ZANAFLEX) tablet 12 mg 12 mg, Oral, Nightly, First dose on 09/22/24 at 2100 2013 (Given - Provider: Prema Fowler, RN) 2026 (Given - Provider: Lorna Velázquez RN) triheptanoin Liqd 20 mL 20 mL, Oral, 3 times daily with meals, First dose on 09/22/24 at 1700, Drug Name: Triheptanoin, Form: Liquid, Dose: 20, Dose Units: mL, Length of Therapy: Indefinite, How soon needed? (normally 72 hrs needed to procure): 0-24 hrs, Reason for Non-Formulary: Hospital does not supply, Will this medication be patient supplied? Yes 0846 (Given - Provider: Jaspreet Barnes RN)1355 (Given - Provider: Jaspreet Barnes RN)1710 (Given - Provider: Jaspreet Barnes RN) 0817 (Given - Provider: Anna Hairston)1142 (Given - Provider: Anna Hairston)1803 (Given - Provider: Jaspreet Barnes RN) 0945 (Given - Provider: Berkley Back RN)1200 (Due) PRN Medication Order 09/23/2024 09/24/2024 09/25/2024 acetaminophen (TYLENOL) tablet 650 mg 650 mg, Oral, Every 4 hours PRN, headaches, fever 100.4 F or greater, mild pain, Starting on 09/22/24 at 1046 0542 (Given - Provider: Prema Fowler RN) albuterol (PROVENTIL) 2.5 mg /3 mL (0.083 %) nebulizer solution 2.5 mg 2.5 mg, Nebulization, Every 6 hours PRN (RT), wheezing, Starting on 09/21/24 at 2220 hydrALAZINE (APRESOLINE) injection 10 mg 10 mg, Intravenous, Every 6 hours PRN, for systolic bp greater than 170, Starting on 09/24/24 at 1428 1446 (Given - Provider: Jaspreet Barnes RN) melatonin Tab 5 mg 5 mg, Oral, Nightly PRN, Sleep, Starting on 09/21/24 at 2340 perflutren lipid microspheres (DEFINITY) 0.143 mg/mL solution 0-10 mL of mixture 0-10 mL of mixture, Intravenous, Once in imaging, contrast, IF suboptimal echo, Starting on 09/23/24 at 1048, For 48 hours, Prepare syringe by withdrawing 1.3 mL of perflutren (DEFINITY) from the 2ml vial. Further dilute the 1.3 mL of perflutren with Sodium Chloride (NS) 0.9% to total volume of 10 ml. Chart total ML OF MIXTURE given to patient. senna (SENOKOT) tablet 8.6 mg 8.6 mg (1 tablet), Oral, 2 times daily PRN, constipation, Starting on 09/21/24 at 2340 sodium chloride (PF) (NS) flush 5 mL(Linked Group 1) 5 mL, Intravenous, As needed, line care, Starting on 09/21/24 at 2340 sodium chloride 0.9% (NS)(Linked Group 1) 0-150 mL/hr, Intravenous, As needed, To flush line after IV infusions when no maintenance IV ordered or a compatibility issue. Infuse 20ml at the same rate as the secondary infusion, Starting on 09/21/24 at 2340, Run as Primary IV. NOT intended for KVO. Linked Groups Order Group 1: Saline lock IV (CANCELED) Routine, Continuous, Starting on 09/21/24 at 2341, Until Specified And sodium chloride (PF) (NS) flush 5 mLJump to med 5 mL, Intravenous, As needed, line care, Starting on 09/21/24 at 2340 And sodium chloride (PF) (NS) flush 5 mLJump to med 5 mL, Intravenous, Every 8 hours scheduled, First dose on Mon09/22/24 at 0030, Saline lock And sodium chloride 0.9% (NS)Jump to med 0-150 mL/hr, Intravenous, As needed, To flush line after IV infusions when no maintenance IV ordered or a compatibility issue. Infuse 20ml at the same rate as the secondary infusion, Starting on 09/21/24 at 2340, Run as Primary IV. NOT intended for KVO. Scheduled Medication Order 02/16/2025 02/17/2025 02/18/2025 aspirin chewable tablet 81 mg 81 mg, Oral, Daily, First dose on Mon02/14/25 at 0900 0916 (Given - Provider: Rachael Huffman RN) 0838 (Given - Provider: Delmy Olmedo RN) 0807 (Given - Provider: Marina Jarrett, RN) atorvastatin (LIPITOR) tablet 10 mg 10 mg, Oral, Nightly, First dose on Mon02/13/25 at 2345 2347 (Given - Provider: Reema Juarez RN) 2208 (Given - Provider: Carolyn Ryder, RN) doxepin (SINEQUAN) capsule 100 mg 100 mg, Oral, Nightly, First dose on Mon02/13/25 at 2345, May cause QT interval prolongation. 2347 (Given - Provider: Reema Juarez RN) 2208 (Given - Provider: Carolyn Ryder, JASON) doxycycline (VIBRAMYCIN) oral solid 100 mg 100 mg, Oral, 2 times daily, First dose on Mon02/14/25 at 2100, For 10 doses, Do not crush or open. Patient to sit up after administration for 30 minutes after taking and take with at least 8 ounces of water Take 1 hour before or 4 hours after metallic cations (e.g.antacids, aluminum,magnesium, calcium, ferrous sulfate), Indication: Bronchitis 0543 (Given - Provider: Carroll Gomez LPN)2355 (Given - Provider: Reema Juarez, RN) 0541 (Given - Provider: Reema Juarez RN)220 (Given - Provider: Carolyn Ryder, JASON) 0628 (Given - Provider: Carolyn Ryder, JASON) DULoxetine (CYMBALTA) DR capsule 60 mg 60 mg, Oral, Daily, First dose on Mon02/14/25 at 0900, DO NOT CRUSH OR CHEW. 0916 (Given - Provider: Rachael Huffman RN) 0838 (Given - Provider: Delmy Olmedo, JASON) 0807 (Given - Provider: Marina Jarrett, RN) furosemide (LASIX) injection 20 mg (COMPLETED) 20 mg, Intravenous, 2 times daily, First dose on Mon02/16/25 at 1230, For 3 doses, Administer IV push at 20 mg per minute (doses higher than 100 mg require IVPB) 1319 (Given - Provider: Rachael Huffman RN)1802 (Given - Provider: Rachael Huffman RN) 0838 (Given - Provider: Delmy Olmedo, RN) furosemide (LASIX) tablet 40 mg 40 mg, Oral, Daily, First dose on Mon02/18/25 at 0900 0807 (Given - Provider: Marina Jarrett, JASON) heparin (porcine) injection 5,000 Units 5,000 Units, Subcutaneous, Every 8 hours scheduled, First dose on [facility] 02/13/25 at 2345, Notify physician if patient refuses. 0543 (Given - Provider: Carroll Gomez LPN)1318 (Given - Provider: Racheal Huffman RN)2349 (Given - Provider: Reema Juarez, RN) 0542 (Given - Provider: Reema Juarez, RN)1400 (Not Given - Provider: Delmy Olmedo RN - Reason: Patient/family refused)2209 (Given - Provider: Carolyn Ryder, JASON) 0628 (Given - Provider: Carolyn Ryder, RN)1400 (Not Given - Provider: Marina Jarrett RN - Reason: Patient/family refused) ipratropium-albuteroL (DUO-NEB) 0.5-2.5 mg/3 ml nebulizer solution 3 mL (CANCELED) 3 mL, Inhalation, Every 4 hours scheduled (RT), First dose on Mon02/14/25 at 0940 0423 (Given - Provider: Noris Jaramillo)0847 (Given - Provider: Alexandria Sanchez)1111 (Given - Provider: Alexandria Sanchez)1509 (Given - Provider: Esperanza Suggs RRT)1938 (Given - Provider: Noris Jaramillo) 0019 (Given - Provider: Noris Jaramillo)0328 (Given - Provider: Noris Jaramillo)0800 (Canceled Entry - Provider: Aleisha Pickett, GILDA - Comment: order changed) ipratropium-albuteroL (DUO-NEB) 0.5-2.5 mg/3 ml nebulizer solution 3 mL 3 mL, Inhalation, Every 6 hours scheduled (RT), First dose (after last modification) on Mon02/17/25 at 0815 0846 (Given - Provider: Aleisha Pickett, GILDA)1326 (Given - Provider: Evelina Ca, GILDA)1951 (Given - Provider: Belkys Silva, GILDA) 0101 (Given - Provider: Belkys Silva RRT)0724 (Given - Provider: Cecille Maria RRT)1437 (Given - Provider: Reema Anne, GILDA) levothyroxine (SYNTHROID, LEVOTHROID) tablet 175 mcg 175 mcg, Oral, Daily (in the evening), First dose on Mon02/13/25 at 2345, Avoid administration with soybean flour, cottonseed meal, walnuts, and dietary fiber. Administer at least 1 hour before breakfast. Hold continuous tube feeds for at least 1 hour before until 1 hour after each dose. Flush tube with 30mL of water before and after administration. Tube feed rate may need adjusted to meet caloric needs. 234 (Given - Provider: Reema Juarez, RN) 2015 (Given - Provider: Carolyn Ryder, JASON) lisinopriL (PRINIVIL,ZESTRIL) tablet 20 mg 20 mg, Oral, Daily with lunch, First dose on Mon02/14/25 at 1200 1318 (Given - Provider: Rachael Huffman RN) 1127 (Given - Provider: Delmy Olmedo, JASON) 1230 (Given - Provider: Marina Jarrett, RN) magnesium sulfate 2 g in sterile water (SW) 50 mL IVPB (COMPLETED) 2 g, Intravenous, at 50 mL/hr, Once, On Mon02/17/25 at 1145, For 1 dose 1134 (New Bag - Provider: Delmy Olmedo, JASON)1142 (Rate/Dose Verify - Provider: Delmy Olmedo, JASON)1234 (Stopped - Provider: Delmy Olmedo, JASON) metoprolol tartrate (LOPRESSOR) tablet 100 mg 100 mg, Oral, 2 times daily, First dose on Mon02/13/25 at 2345 0916 (Given - Provider: Rachael Huffman RN)2348 (Given - Provider: Reema Juarez RN) 0838 (Given - Provider: Delmy Olmedo, JASON)2209 (Given - Provider: Carolyn Ryder, JASON) 0824 (Given - Provider: Marina Jarrett, RN) mometasone-formoterol (DULERA) 200-5 mcg/actuation inhaler 2 puff(Linked Group 1) 2 puff, Inhalation, 2 times daily (RT), First dose on Mon02/14/25 at 0900 0931 (Given - Provider: Rachael Huffman RN)2346 (Given - Provider: Reema Juarez, JASON) 0900 (Given - Provider: Delmy Olmedo, JASON)1999 (Given - Provider: Carolyn Ryder, JASON) 0806 (Not Given - Provider: Marina Jarrett, RN - Reason: Patient/family refused) NIFEdipine (PROCARDIA XL) 24 hr tablet 30 mg 30 mg, Oral, Daily, First dose on Mon02/14/25 at 0900, DO NOT CRUSH OR CHEW. 0916 (Given - Provider: Rachael Huffman RN) 0838 (Given - Provider: Delmy Olmedo, JASON) 0806 (Given - Provider: Marina Jarrett, RN) pantoprazole (PROTONIX) EC tablet 40 mg 40 mg, Oral, Daily, First dose on Mon02/14/25 at 0900, DO NOT CRUSH OR CHEW. 0916 (Given - Provider: Rachael Huffman RN) 0838 (Given - Provider: Delmy Olmedo RN) 0807 (Given - Provider: Marina Jarrett, RN) predniSONE (DELTASONE) tablet 40 mg 40 mg, Oral, Daily with breakfast, First dose on Mon02/15/25 at 0800 0915 (Given - Provider: Rachael Huffman RN) 0837 (Given - Provider: Delmy Olmedo, JASON) 0808 (Given - Provider: Marina Jarrett, JASON) senna-docusate (SENNA-S) 8.6-50 mg per tablet 1 tablet (CANCELED) 1 tablet, Oral, 2 times daily, First dose on Mon02/14/25 at 0900, NOT for abdominal surgery patients. Hold for loose stools. Do Not Crush or Chew if administering orally due to bitter taste. May be crushed if given via tube. 0916 (Given - Provider: Rachael Huffman RN) sodium chloride (PF) (NS) flush 5 mL(Linked Group 2) 5 mL, Intravenous, Every 8 hours scheduled, First dose on [facility] 02/13/25 at 2305, Saline lock 0600 (Not Given - Provider: Carroll Gomez LPN - Reason: Other - Comment: Pt IV infusing)1320 (Given - Provider: Rachael Huffman, RN)2350 (Given - Provider: Reema Juarez RN) 0542 (Given - Provider: Reema Juarez RN)1400 (Not Given - Provider: Delmy Olmedo, JASON - Reason: Other - Comment: IV infusing)2217 (Given - Provider: Carolyn Ryder RN) 0628 (Given - Provider: Carolyn Ryder, RN)1400 (Not Given - Provider: Marina Jarrett RN - Reason: Loss of IV access) sulfamethoxazole-trimetho prim (BACTRIM DS,SEPTRA DS) 800-160 mg per tablet 1 tablet 1 tablet, Oral, Every 12 hours scheduled, First dose on Mon02/16/25 at 1230, For 5 days, Indication: Travelers Diarrhea 1319 (Given - Provider: Rachael Huffman RN)2349 (Given - Provider: Reema Juarez RN) 0838 (Given - Provider: Delmy Olmedo, JASON)2216 (Given - Provider: Carolyn Ryder RN) 0807 (Given - Provider: Marina Jarrett RN) tiZANidine (ZANAFLEX) tablet 12 mg 12 mg, Oral, At bedtime, First dose on Gege 02/13/25 at 2345 2349 (Given - Provider: Reema Juarez RN) 2209 (Given - Provider: Carolyn Ryder RN) Continuous Medication Order 02/16/2025 02/17/2025 02/18/2025 dextrose 10% and 0.9% NaCl 1000ml infusion (CANCELED) 150 mL/hr, Intravenous, Continuous, Starting on Mon02/14/25 at 2345 0546 (New Bag - Provider: Carroll Gomez LPN) PRN Medication Order 02/16/2025 02/17/2025 02/18/2025 acetaminophen (TYLENOL) tablet 650 mg 650 mg, Oral, Every 4 hours PRN, mild pain, fever 100.4 F or greater, headaches, Starting on Gege 02/13/25 at 2303 1450 (Given - Provider: Rachael Huffman RN) albuterol (PROVENTIL) 2.5 mg /3 mL (0.083 %) nebulizer solution 0.63 mg 0.63 mg, Nebulization, Every 6 hours PRN (RT), wheezing, Starting on Gege 02/13/25 at 2312 albuterol inhaler 2 puff 2 puff, Inhalation, Every 6 hours PRN (RT), wheezing, Starting on Gege 02/13/25 at 2312, SPACER REQUIRED FOR ADMINISTRATION fentaNYL (SUBLIMAZE) inj syringe 25 mcg 25 mcg, Intravenous, As needed, moderate to severe pain, Starting on Gege 02/13/25 at 1847, For 2 doses morphine injection 2-4 mg 2-4 mg, Intravenous, Every 3 hours PRN (may repeat), moderate to severe pain, Starting on Gege 02/13/25 at 2303, Initiate with 2 mg IV every 3 hours prn moderate to severe pain. For unrelieved pain, may repeat 2 mg within 30 minutes of initial dose. If pain is RELIEVED after repeat dose, change to 4 mg every 3 hours prn moderate to severe pain. If pain is UNrelieved after repeat dose, or patient requires dose reduction, call physician. May use IV for breakthrough pain or if unable to tolerate enteral routes. naloxone (NARCAN) injection 0.1 mg(Linked Group 3) 0.1 mg, Intravenous, As needed, opioid reversal, For respiratory rate less than or equal to 8 per minute., Starting on Gege 02/13/25 at 2303, Mix nalOXone (NARCAN) 0.4 mg (1mL) with 9 mL of Normal Saline to total 10 mL. Administer 0.1 mg (2.5mL) IV Push every 2 minutes until respiratory rate is 10 or greater. naloxone (NARCAN) injection 0.4 mg(Linked Group 3) 0.4 mg, Intravenous, As needed, opioid reversal, patient is pulseless, breathless, and unresponsive, Starting on [facility] 02/13/25 at 2303, Call a code first, then administer naloxone dose undiluted IV Push over 30 seconds. nitroGLYCERIN (NITROSTAT) SL tablet 0.4 mg 0.4 mg, Sublingual, Every 5 min PRN, chest pain, Starting on Gege 02/13/25 at 1704, For 2 doses, Anginal pain, may repeat [id number] x2, then notify physician. DO NOT CRUSH OR CHEW. ondansetron (ZOFRAN) injection 4 mg(Linked Group 4) 4 mg, Intravenous, Every 6 hours PRN, nausea, vomiting, Starting on Gege 02/13/25 at 2303, Use oral route first, if tolerated. ondansetron (ZOFRAN-ODT) disintegrating tablet 4 mg(Linked Group 4) 4 mg, Oral, Every 6 hours PRN, nausea, vomiting, Starting on Gege 02/13/25 at 2303, Use oral route first, if tolerated. Formulation requires tablet remain in sealed package until immediately prior to dose being administered. sodium chloride (PF) (NS) flush 5 mL(Linked Group 5) 5 mL, Intravenous, As needed, line care, Starting on Gege 02/13/25 at 1634 sodium chloride (PF) (NS) flush 5 mL(Linked Group 2) 5 mL, Intravenous, As needed, line care, Starting on Mon02/13/25 at 2303 sodium chloride 0.9% (NS)(Linked Group 5) 0-150 mL/hr, Intravenous, As needed, To flush line after IV infusions when no maintenance IV ordered or a compatibility issue. Infuse 20ml at the same rate as the secondary infusion, Starting on Mon02/13/25 at 1634, Run as Primary IV. NOT intended for KVO. 1129 (New Bag - Provider: Delmy Olmedo RN)1200 (Stopped - Provider: Carolyn Ryder RN) sodium chloride 0.9% (NS)(Linked Group 2) 0-150 mL/hr, Intravenous, As needed, To flush line after IV infusions when no maintenance IV ordered or a compatibility issue. Infuse 20ml at the same rate as the secondary infusion, Starting on Mon02/13/25 at 2303, Run as Primary IV. NOT intended for KVO. Linked Groups Order Group 1: tiotropium bromide (SPIRIVA RESPIMAT) 2.5 mcg/actuation inhaler 2 puff (CANCELED) 2 puff, Inhalation, Daily (RT), First dose on Mon02/14/25 at 0900 And mometasone-formoterol (DULERA) 200-5 mcg/actuation inhaler 2 puffJump to med 2 puff, Inhalation, 2 times daily (RT), First dose on Mon02/14/25 at 0900 Group 2: Saline lock IV (CANCELED) Routine, Continuous, Starting on Mon02/13/25 at 2304, Until Specified And sodium chloride (PF) (NS) flush 5 mLJump to med 5 mL, Intravenous, As needed, line care, Starting on [facility]ge 02/13/25 at 2303 And sodium chloride (PF) (NS) flush 5 mLJump to med 5 mL, Intravenous, Every 8 hours scheduled, First dose on [facility] 02/13/25 at 2305, Saline lock And sodium chloride 0.9% (NS)Jump to med 0-150 mL/hr, Intravenous, As needed, To flush line after IV infusions when no maintenance IV ordered or a compatibility issue. Infuse 20ml at the same rate as the secondary infusion, Starting on Gege 02/13/25 at 2303, Run as Primary IV. NOT intended for KVO. Group 3: naloxone (NARCAN) injection 0.1 mgJump to med 0.1 mg, Intravenous, As needed, opioid reversal, For respiratory rate less than or equal to 8 per minute., Starting on Gege 02/13/25 at 2303, Mix nalOXone (NARCAN) 0.4 mg (1mL) with 9 mL of Normal Saline to total 10 mL. Administer 0.1 mg (2.5mL) IV Push every 2 minutes until respiratory rate is 10 or greater. And Notify physician (CANCELED) STAT, Until discontinued, Starting on Gege 02/13/25 at 2304, Until Specified, Respiratory rate less than: 8, For respiratory rate less than or equal to 8, notify physician and/or appropriate staff for additional orders. And naloxone (NARCAN) injection 0.4 mgJump to med 0.4 mg, Intravenous, As needed, opioid reversal, patient is pulseless, breathless, and unresponsive, Starting on Gege 02/13/25 at 2303, Call a code first, then administer naloxone dose undiluted IV Push over 30 seconds. Group 4: ondansetron (ZOFRAN-ODT) disintegrating tablet 4 mgJump to med 4 mg, Oral, Every 6 hours PRN, nausea, vomiting, Starting on Gege 02/13/25 at 2303, Use oral route first, if tolerated. Formulation requires tablet remain in sealed package until immediately prior to dose being administered. Or ondansetron (ZOFRAN) injection 4 mgJump to med 4 mg, Intravenous, Every 6 hours PRN, nausea, vomiting, Starting on Gege 02/13/25 at 2303, Use oral route first, if tolerated. Group 5: Insert peripheral IV (COMPLETED) ABDELRAHMAN, Once, On Gege 02/13/25 at 1635, For 1 occurrence And Saline lock IV (CANCELED) ABDELRAHMAN, Once, On Gege 02/13/25 at 1635, For 1 occurrence And sodium chloride (PF) (NS) flush 5 mLJump to med 5 mL, Intravenous, As needed, line care, Starting on Gege 02/13/25 at 1634 And sodium chloride 0.9% (NS)Jump to med 0-150 mL/hr, Intravenous, As needed, To flush line after IV infusions when no maintenance IV ordered or a compatibility issue. Infuse 20ml at the same rate as the secondary infusion, Starting on Gege 02/13/25 at 1634, Run as Primary IV. NOT intended for KVO. Care Teams (unrecognized sec tion and content) Jazz Singer Relationship Specialty Start Date End Date Jonathan Rutherford CNP [address] [place] [address] PCP - General Nurse Practitioner 11/02/20 Elana Pena, [address] [place] [address] Referring Physician Family Medicine 07/15/16 Jonathan Rutherford CNP [address] [place] [address] Referring Physician Nurse Practitioner 07/22/21 Jazz Singer Relationship Specialty Start Date End Date Jonathan Rutherford CNP [address] [place] [address] PCP - General Nurse Practitioner 11/02/20 Elana Pena, [address] [place] [address] Referring Physician Family Medicine 07/15/16 Hellinger, Jonathan L., STEAM [employer] [address] [place] [address] Referring Physician Nurse Practitioner 07/22/21 Jazz Singer Relationship Specialty Start Date End Date Jonathan Rutherford STEAM TENDER [address] [place] [address] PCP - General Nurse Practitioner 11/02/20 Elana Pena, DO [address] [place] [address] Referring Physician Family Medicine 07/15/16 Jonathan Rutherford STEAM TENDER [address] [place] [address] Referring Physician Nurse Practitioner 07/22/21 Jazz Singer Relationship Specialty Start Date End Date Jonathan Rutherford STEAM TENDER [address] [place] [address] PCP - General Nurse Practitioner 11/02/20 Elana Pena, DO [address] [place] [address] Referring Physician Family Medicine 07/15/16 Jonathan Rutherford STEAM TENDER [address] [place] [address] Referring Physician Nurse Practitioner 07/22/21 Jazz Singer Relationship Specialty Start Date End Date Jonathan Rutherford STEAM TENDER [address] [place] [address] PCP - General Nurse Practitioner 11/02/20 Elana Pena, DO [address] [place] [address] Referring Physician Family Medicine 07/15/16 Jonathan Rutherford STEAM TENDER [address] [place] [address] Referring Physician Nurse Practitioner 07/22/21 Jazz Singer Relationship Specialty Start Date End Date Jonathan Rutherford STEAM TENDER [address] [place] [address] PCP - General Nurse Practitioner 11/02/20 Elana Pena, DO [address] [place] [address] Referring Physician Family Medicine 07/15/16 Jonathan Rutherford, STEAM TENDER [address] [place] [address] Referring Physician Nurse Practitioner 07/22/21 Jazz Singer Relationship Specialty Start Date End Date Jonathan Rutherford STEAM TENDER [address] [place] [address] PCP - General Nurse Practitioner 11/02/20 Elana Pena, DO [address] [place] [address] Referring Physician Family Medicine 07/15/16 Jonathan Rutherford STEAM TENDER [address] [place] [address] Referring Physician Nurse Practitioner 07/22/21 Jazz Singer Relationship Specialty Start Date End Date Jonathan Rutherford STEAM TENDER [address] [place] [address] PCP - General Nurse Practitioner 11/02/20 Jonathan Rutherford STEAM TENDER [address] [place] [address] Referring Physician Nurse Practitioner 07/22/21 Jazz Singer Relationship Specialty Start Date End Date Jonathan Rutherford STEAM TENDER [address] [place] [address] PCP - General Nurse Practitioner 11/02/20 Wilfridyonis Jonathan L., STEAM TENDER [address] [place] [address] Referring Physician Nurse Practitioner 07/22/21 Jazz Singer Relationship Specialty Start Date End Date WilfridbayronJonathan ruffinDonna STEAM TENDER [address] [place] [address] PCP - General Nurse Practitioner 11/02/20 Jonathan Rutherford STEAM TENDER [address] [place] [address] Referring Physician Nurse Practitioner 07/22/21 Jazz Singer Relationship Specialty Start Date End Date Wilfridbayronaugustin Jonathan Monica STEAM TENDER [address] [place] [address] PCP - General Nurse Practitioner 11/02/20 Jonathan Rutherford, STEAM TENDER [address] [place] [address] Referring Physician Nurse Practitioner 07/22/21 Jazz Singer Relationship Specialty Start Date End Date Jonathan RutherfordDonna STEAM TENDER [address] [place] [address] PCP - General Nurse Practitioner 11/02/20 Jonathan Rutherford, STEAM TENDER [address] [place] [address] Referring Physician Nurse Practitioner 07/22/21 Jazz Singer Relationship Specialty Start Date End Date Krish Jonathan L., STEAM TENDER [address] [place] [address] PCP - General Nurse Practitioner 11/02/20 WilfridJonathan somers, STEAM TENDER [address] [place] [address] Referring Physician Nurse Practitioner 07/22/21 Jazz Singer Relationship Specialty Start Date End Date WilfridbayronJonathan ruffinDonnaRUIZ [address] [place] [address] PCP - General Nurse Practitioner 11/02/20 Wilfridbayronaugustin Jonathan BenitezDonna STEAM TENDER [address] [place] [address] Referring Physician Nurse Practitioner 07/22/21 Jazz Singer Relationship Specialty Start Date End Date WilfridbayronJonathan ruffinDonna STEAM TENDER [address] [place] [address] PCP - General Nurse Practitioner 11/02/20 Wilfridyonis Jonathan Monica STEAM TENDER [address] [place] [address] Referring Physician Nurse Practitioner 07/22/21 Jazz Singer Relationship Specialty Start Date End Date Jonathan RutherfordDonna STEAM TENDER [address] [place] [address] PCP - General Nurse Practitioner 11/02/20 Krish Jonathan BenitezDonna STEAM TENDER [address] [place] [address] Referring Physician Nurse Practitioner 07/22/21 Jazz Singer Relationship Specialty Start Date End Date Wilfridbayronaugustin Jonathan L., STEAM TENDER [address] [place] [address] PCP - General Nurse Practitioner 11/02/20 Wilfrdiyonis Jonathan L., STEAM TENDER [address] [place] [address] Referring Physician Nurse Practitioner 07/22/21 Jazz Singer Relationship Specialty Start Date End Date Wilfridyonis Jonathan L., STEAM TENDER [address] [place] [address] PCP - General Nurse Practitioner 11/02/20 Jonathan Rutherford, STEAM TENDER [address] [place] [address] Referring Physician Nurse Practitioner 07/22/21 Jazz Singer Relationship Specialty Start Date End Date Jonathan Rutherford, AQUATICS INSTRUCTOR [address] [place] [address] PCP - General Nurse Practitioner 11/23/20 Jazz Singer Relationship Specialty Start Date End Date Jonathan Rutherford, AQUATICS INSTRUCTOR [address] [place] [address] PCP - General Nurse Practitioner 11/23/20 Jazz Singer Relationship Specialty Start Date End Date Jonathan Rutherford, AQUATICS INSTRUCTOR [address] [place] [address] PCP - General Nurse Practitioner 11/23/20 Team Status: Active Member Role Status Dates Dr. Jennifer Gordon MD Primary Care Provider Active Team Status: Inactive Member Role Status Dates Dr. Rusty Dozier MD Attending Provider Active Team Status: Inactive Member Role Status Dates Jonathan Rutherford RECEPTION CENTRE MANAGER, RECEPTION CENTRE MANAGER-C Referring Provider Active Dr. Jennifer Gordon MD Primary Care Provider, Attendi ng Provider Active Team Status: Inactive Member Role Status Dates Jonathan Rutherford RECEPTION CENTRE MANAGER, RECEPTION CENTRE MANAGER-C Primary Care Provider Active Dr. Rusty Dozier MD Attending Provider, Referring Provider Active Team Status: Inactive Member Role Status Dates Dr. Jennifer Gordon MD Primary Care Provider Active Dr. Rusty Dozier MD Attending Provider, Referring Provider Active Team Status: Active Member Role Status Dates Dr. Jennifer Gordon MD Primary Care Provider Active GIA PAGAN Attending Provider Active Team Status: Active Member Role Status Dates Dr. Jennifer Gordon MD Primary Care Provider Active Dr. Oscar Arshad MD Attending Provider Active Team Status: Inactive Member Role Status Dates Dr. Rusty Dozier MD Attending Provider, Referring Provider Active Dr. Jennifer Gordon MD Primary Care Provider Active Team Status: Inactive Member Role Status Dates Dr. Jennifer Gordon MD Primary Care Provider Active GIA PAGAN Attending Provider Active Team Status: Inactive Member Role Status Dates Dr. Rusty Dozier MD Attending Provider Active Dr. Jennifer Gordon MD Primary Care Provider, Referri ng Provider Active Team Status: Active Member Role Status Dates Dr. Jennifer Gordon MD Primary Care Provider Active Dr. Oscar Arshad MD Attending Provider Active Dr. Rusty Dozier MD Referring Provider Active Jazz Singer Relationship Specialty Start Date End Date Jonathan Rutherford, AQUATICS INSTRUCTOR [address] [place] [address] PCP - General Nurse Practitioner 11/23/20 Team Status: Inactive Member Role Status Dates Dr. Jennifer Gordon MD Primary Care Provider, Referri ng Provider Active Sasha Heredia RECEPTION CENTRE MANAGER, RECEPTION CENTRE MANAGER-C Attending Provider Active Team Status: Inactive Member Role Status Dates Dr. Jennifer Gordon MD Primary Care Provider, Referri ng Provider Active Dr. Flavia Shine MD Attending Provider Active Team Status: Active Member Role Status Dates Dr. Jennifer Gordon MD Primary Care Provider Active Aleisha Chisholm Attending Provider Active Team Status: Active Member Role Status Dates Dr. Jennifer Gordon MD Primary Care Provider Active Dr. Flavia Shine MD Attending Provider Active Team Status: Inactive Member Role Status Dates Dr. Jennifer Gordon MD Primary Care Provider Active Dr. Flavia Shine MD Attending Provider, Referring Pr ovider Active Team Status: Active Member Role Status Dates Dr. Jennifer Gordon MD Primary Care Provider Active Dr. Flavia Shine MD Attending Provider, Referring Pr ovider Active Team Status: Inactive Member Role Status Dates Dr. Jennifer Gordon MD Primary Care Pro vider, Attending Provider, Referring Provider Active Team Status: Active Member Role Status Dates Dr. Jennifer Gordon MD Primary Care Provider Active Aleisha Loving PA, PA Referring Provider, Other Provider Active Dr. Melvin Oshea MD Attending Provider Active Team Status: Inactive Member Role Status Dates Dr. Jennifer Gordon MD Primary Care Provider Active Aleisha Loving PA, PA Attending Provider, Referr ing Provider Active Team Status: Active Member Role Status Dates Dr. Jennifer Gordon MD Primary Care Pro vider, Attending Provider, Referring Provider Active Team Status: Inactive Member Role Status Dates Sasha Heredia RECEPTION CENTRE MANAGER, RECEPTION CENTRE MANAGER-C Attending Provider, Referrin g Provider Active Dr. Jennifer Gordon MD Primary Care Provider Active Jazz Singer Relationship Specialty Start Date End Date Jonathan Rutherford, STEAM TENDER [address] [place] [address] PCP - General Nurse Practitioner 11/02/20 Jonathan Rutherford, RUIZ [address] [place] [address] Referring Physician Nurse Practitioner 07/22/21 Jazz Singer Relationship Specialty Start Date End Date Jonathan Rutherford CNP [address] [place] [address] PCP - General Nurse Practitioner 11/02/20 Jonathan Rutherford, STEAM TENDER [address] [place] [address] Referring Physician Nurse Practitioner 07/22/21 Jazz Singer Relationship Specialty Start Date End Date Jonathan Rutherford FNP [address] [place] [id number] PCP - General Nurse Practitioner 11/23/20 Team Status: Inactive Member Role Status Dates Dr. Jennifer Gordon MD Primary Care Provider, Referri ng Provider Active Dr. Rusty Dozier MD Attending Provider Active Team Status: Inactive Member Role Status Dates Dr. Jennifer Gordon MD Primary Care Provider, Referri ng Provider Active Dr. Qiana Forde MD Attending Provider Active Team Status: Active Member Role Status Dates Dr. Jennifer Gordon MD Primary Care Provider Active Dr. German Kamara MD Attending Provider, Referri ng Provider Active Team Status: Inactive Member Role Status Dates Dr. Jennifer Gordon MD Primary Care Provider Active Dr. German Kamara MD Attending Provider, Referri ng Provider Active Jazz Singer Relationship Specialty Start Date End Date Jonathan Rutherford FNP [address] [place], [place] [id number] PCP - General Nurse Practitioner 11/23/20 Team Status: Inactive Member Role Status Dates Dr. Jennifer Gordon MD Primary Care Provider, Referri ng Provider Active Dr. Cristian Joseph DO Attending Provider Active Team Status: Active Member Role Status Dates Dr. Jennifer Gordon MD Primary Care Provider, Attendi ng Provider Active Team Status: Inactive Member Role Status Dates Dr. Jennifer Gordon MD Primary Care Provider Active Dr. Cristian Joseph DO Attending Provider, Referring Pro vider Active Jazz Singer Relationship Specialty Start Date End Date Jonathan Rutherford, STEAM TENDER [address] [place] [address] PCP - General Nurse Practitioner 11/02/20 Jonathan Rutherford, STEAM TENDER [address] [place] [address] Referring Physician Nurse Practitioner 07/22/21 Jazz Singer Relationship Specialty Start Date End Date No, Physician [facility] PCP - General 09/02/24 Jazz Singer Relationship Specialty Start Date End Date No, Physician [facility] PCP - General 09/02/24 Jazz Singer Relationship Specialty Start Date End Date No, Physician [facility] PCP - General 09/02/24 Jazz Singer Relationship Specialty Start Date End Date No, Physician [facility] PCP - General 09/02/24 Jazz Singer Relationship Specialty Start Date End Date No, Physician [facility] PCP - General 09/02/24 Jazz Singer Relationship Specialty Start Date End Date Jonathan Rutherford FNP [address] [place] [address] PCP - General Nurse Practitioner 11/23/20 Jazz Singer Relationship Specialty Start Date End Date No, Physician [facility] PCP - General 09/02/24 Team Status: Inactive Member Role Status Dates Dr. Jeninfer Gordon MD Primary Care Provider Active Start: October 16, 2024 End: October 16, 2024 Dr. Jennifer Gordon MD Attending Provider Active Start: October 16, 2024 End: October 16, 2024 Dr. Jennifer Gordon MD Referring Provider Active Start: October 16, 2024 End: October 16, 2024 Team Status: Inactive Member Role Status Dates Dr. Jennifer Gordon MD Primary Care Provider Active Start: December 26, 2024 End: December 26, 2024 Dr. Rusty Dozier MD Attending Provider Active Start: December 26, 2024 End: December 26, 2024 Dr. Rusty Dozier MD Referring Provider Active Start: December 26, 2024 End: December 26, 2024 Team Status: Inactive Member Role Status Dates Dr. Jennifer Gordon MD Primary Care Provider Active Start: January 01, 2025 End: January 01, 2025 Dr. Teddy Rust MD Attending Provider Active S tart: January 01, 2025 End: January 01, 2025 Dr. Teddy Rust MD Emergency Provider Active S tart: January 01, 2025 End: January 01, 2025 Team Status: Inactive Member Role Status Dates Dr. Jennifer Gordon MD Primary Care Provider Active Start: January 06, 2025 End: January 06, 2025 Dr. Jennifer Gordon MD Referring Provider Active Start: January 06, 2025 End: January 06, 2025 DANIEL Archer Attending Provider Active Star t: January 06, 2025 End: January 06, 2025 Team Status: Inactive Member Role Status Dates Dr. Jennifer Gordon MD Primary Care Provider Active Start: January 06, 2025 End: January 06, 2025 Dr. Melvin Oshea MD Attending Provider Active S tart: January 06, 2025 End: January 06, 2025 Team Status: Inactive Member Role Status Dates Dr. Jennifer Gordon MD Primary Care Provider Active Start: January 13, 2025 End: January 13, 2025 Dr. Rusty Dozier MD Attending Provider Active Start: January 13, 2025 End: January 13, 2025 Dr. Rusty Dozier MD Referring Provider Active Start: January 13, 2025 End: January 13, 2025 Team Status: Inactive Member Role Status Dates Dr. Jennifer Gordon MD Primary Care Provider Active Start: January 21, 2025 End: January 21, 2025 Dr. Jennifer Gordon MD Referring Provider Active Start: January 21, 2025 End: January 21, 2025 Cary Jacobsen MD Attending Provider Active St art: January 21, 2025 End: January 21, 2025 Team Status: Inactive Member Role Status Dates Dr. Jennifer Gordon MD Primary Care Provider Active Start: January 21, 2025 End: January 21, 2025 Dr. Melvin Oshea MD Attending Provider Active S tart: January 21, 2025 End: January 21, 2025 Team Status: Inactive Member Role Status Dates Dr. Jennifer Gordon MD Primary Care Provider Active Start: February 03, 2025 End: February 03, 2025 DANIEL Archer Attending Provider Active Star t: February 03, 2025 End: February 03, 2025 DANIEL Archer Referring Provider Active Star t: February 03, 2025 End: February 03, 2025 Jazz Singer Relationship Specialty Start Date End Date No, Physician [facility] PCP - General 09/02/24 Jennifer Gordon Hallie [place] Primary Care Physician 02/17/25 Team Status: Inactive Member Role Status Dates Dr. Jennifer Gordon MD Primary Care Provider Active Start: February 25, 2025 End: February 25, 2025 Cayr Jacobsen MD Attending Provider Active St art: February 25, 2025 End: February 25, 2025 Cary Jacobsen MD Referring Provider Active St art: February 25, 2025 End: February 25, 2025 Team Status: Inactive Member Role Status Dates Dr. Jennifer Gordon MD Primary Care Provider Active Start: February 27, 2025 End: February 27, 2025 Dr. Jennifer Gordon MD Referring Provider Active Start: February 27, 2025 End: February 27, 2025 DANIEL Archer Attending Provider Active Star t: February 27, 2025 End: February 27, 2025 Team Status: Inactive Member Role Status Dates Dr. Jennifer Gordon MD Primary Care Provider Active Start: February 27, 2025 End: February 27, 2025 Dr. Melvin Oshea MD Attending Provider Active S tart: February 27, 2025 End: February 27, 2025 Team Status: Inactive Member Role Status Dates Dr. Jennifer Gordon MD Primary Care Provider Active Start: March 27, 2025 End: March 27, 2025 Dr. Jennifer Gordon MD Referring Provider Active Start: March 27, 2025 End: March 27, 2025 Dr. Rusty Dozier MD Attending Provider Active Start: March 27, 2025 End: March 27, 2025 Team Status: Inactive Member Role Status Dates Dr. Jennifer Gordon MD Primary Care Provider Active Start: April 03, 2025 End: April 03, 2025 Dr. Jeninfer Gordon MD Referring Provider Active Start: April 03, 2025 End: April 03, 2025 Cary Jacobsen MD Attending Provider Active St art: April 03, 2025 End: April 03, 2025 Team Status: Inactive Member Role Status Dates Dr. Jennifer Gordon MD Primary Care Provider Active Start: April 04, 2025 End: April 04, 2025 Dr. Jennifer Gordon MD Referring Provider Active Start: April 04, 2025 End: April 04, 2025 YNES Barros Attending Provider Active Start: April 04, 2025 End: April 04, 2025 Team Status: Inactive Member Role Status Dates Dr. Jennifer Gordon MD Primary Care Provider Active Start: 2025 End: 2025 Dr. Jennifer Gordon MD Attending Provider Active Start: 2025 End: 2025 Dr. Jennifer Gordon MD Referring Provider Active Start: 2025 End: 2025 Team Status: Active Member Role Status Dates Dr. Jennifer Gordon MD Primary Care Provider Active Start: April 17, 2025 Sasha Heredia RECEPTION CENTRE MANAGER, RECEPTION CENTRE MANAGER-C Attending Provider Active Start: April 17, 2025 Sasha Heredia RECEPTION CENTRE MANAGER, RECEPTION CENTRE MANAGER-C Referring Provider Active Start: April 17, 2025 Team Status: Inactive Member Role Status Dates Dr. Jennifer Gordon MD Primary Care Provider Active Start: April 17, 2025 End: April 17, 2025 Sasha Heredia RECEPTION CENTRE MANAGER, RECEPTION CENTRE MANAGER-C Attending Provider Active Start: April 17, 2025 End: April 17, 2025 Sasha Heredia RECEPTION CENTRE MANAGER, RECEPTION CENTRE MANAGER-C Referring Provider Active Start: April 17, 2025 End: April 17, 2025 Jazz Singer Relationship Specialty Start Date End Date No, Physician [facility] PCP - General 09/02/24 Jennifer Gordon Hallie [place] Primary Care Physician 02/17/25 Jazz Singer Relationship Specialty Start Date End Date Not On File, Doctor Medical Staff Office [address] [id number] PCP - General Unknown Physician Specialty 04/14/25 Team Status: Active Member Role/Relationship Status Dates Dr. Jennifer Gordon MD Primary Care Provider Active Team Status: Inactive Member Role/Relationship Status Dates Dr. Jennifer Gordon MD Primary Care Provider Active Start: January 21, 2025 End: January 21, 2025 Dr. Jennifer Gordon MD Referring Provider Active Start: January 21, 2025 End: January 21, 2025 Cary Jacobsen MD Attending Provider Active St art: January 21, 2025 End: January 21, 2025 Team Status: Inactive Member Role/Relationship Status Dates Dr. Jennifer Gordon MD Primary Care Provider Active Start: January 21, 2025 End: January 21, 2025 Dr. Melvin Oshea MD Attending Provider Active S tart: January 21, 2025 End: January 21, 2025 Team Status: Inactive Member Role/Relationship Status Dates Dr. Jennifer Gordon MD Primary Care Provider Active Start: February 03, 2025 End: February 03, 2025 DANIEL Archer Attending Provider Active Star t: February 03, 2025 End: February 03, 2025 DANIEL Archer Referring Provider Active Star t: February 03, 2025 End: February 03, 2025 Team Status: Inactive Member Role/Relationship Status Dates Dr. Jennifer Gordon MD Primary Care Provider Active Start: February 25, 2025 End: February 25, 2025 Cary Jacobsen MD Attending Provider Active St art: February 25, 2025 End: February 25, 2025 Cary Jacobsen MD Referring Provider Active St art: February 25, 2025 End: February 25, 2025 Team Status: Inactive Member Role/Relationship Status Dates Dr. Jennifer Gordon MD Primary Care Provider Active Start: February 27, 2025 End: February 27, 2025 Dr. Jennifer Gordon MD Referring Provider Active Start: February 27, 2025 End: February 27, 2025 DANIEL Archer Attending Provider Active Star t: February 27, 2025 End: February 27, 2025 Team Status: Inactive Member Role/Relationship Status Dates Dr. Jennifer Gordon MD Primary Care Provider Active Start: February 27, 2025 End: February 27, 2025 Dr. Melvin Oshea MD Attending Provider Active S tart: February 27, 2025 End: February 27, 2025 Team Status: Inactive Member Role/Relationship Status Dates Dr. Jennifer Gordon MD Primary Care Provider Active Start: March 27, 2025 End: March 27, 2025 Dr. Jennifer Gordon MD Referring Provider Active Start: March 27, 2025 End: March 27, 2025 Dr. Rusty Dozier MD Attending Provider Active Start: March 27, 2025 End: March 27, 2025 Team Status: Inactive Member Role/Relationship Status Dates Dr. Jennifer Gordon MD Primary Care Provider Active Start: April 03, 2025 End: April 03, 2025 Dr. Jennifer Gordon MD Referring Provider Active Start: April 03, 2025 End: April 03, 2025 Cary Jacobsen MD Attending Provider Active St art: April 03, 2025 End: April 03, 2025 Team Status: Inactive Member Role/Relationship Status Dates Dr. Jennifer Gordon MD Primary Care Provider Active Start: April 04, 2025 End: April 04, 2025 Dr. Jennifer Gordon MD Referring Provider Active Start: April 04, 2025 End: April 04, 2025 Colette Black NP-C Attending Provider Active Start: April 04, 2025 End: April 04, 2025 Team Status: Inactive Member Role/Relationship Status Dates Dr. Jennifer Gordon MD Primary Care Provider Active Start: 2025 End: 2025 Dr. Jennifer Gordon MD Attending Provider Active Start: 2025 End: 2025 Dr. Jennifer Gordon MD Referring Provider Active Start: 2025 End: 2025 Team Status: Inactive Member Role/Relationship Status Dates Dr. Jennifer Gordon MD Primary Care Provider Active Start: 2025 End: 2025 Dr. Jennifer Gordon MD Attending Provider Active Start: 2025 End: 2025 Dr. Jennifer Gordon MD Referring Provider Active Start: 2025 End: 2025 Team Status: Inactive Member Role/Relationship Status Dates Dr. Jennifer Gordon MD Primary Care Provider Active Start: April 17, 2025 End: April 17, 2025 Sasha Heredia RECEPTION CENTRE MANAGER, RECEPTION CENTRE MANAGER-C Attending Provider Active Start: April 17, 2025 End: April 17, 2025 Sasha Heredia RECEPTION CENTRE MANAGER, RECEPTION CENTRE MANAGER-C Referring Provider Active Start: April 17, 2025 End: April 17, 2025 Team Status: Inactive Member Role/Relationship Status Dates Dr. Jennifer Gordon MD Primary Care Provider Active Start: May 07, 2025 End: May 07, 2025 Dr. Jennifer Gordon MD Attending Provider Active Start: May 07, 2025 End: May 07, 2025 Dr. Jennifer Gordon MD Referring Provider Active Start: May 07, 2025 End: May 07, 2025 Jazz Singer Relationship Specialty Start Date End Date Not On File, Doctor Medical Staff Office [address] [id number] PCP - General Unknown Physician Specialty 04/14/25 Jazz Singer Relationship Specialty Start Date End Date Not On File, Doctor Medical Staff Office [address] [place] [address] PCP - General Unknown Physician Specialty 04/14/25 Team Status: Inactive Member Role/Relationship Status Dates Dr. Jennifer Gordon MD Primary Care Provider Active Start: February 25, 2025 End: February 25, 2025 Cary Jacobsen MD Attending Provider Active St art: February 25, 2025 End: February 25, 2025 Cary Jacobsen MD Referring Provider Active St art: February 25, 2025 End: February 25, 2025 Team Status: Inactive Member Role/Relationship Status Dates Dr. Jennifer Gordon MD Primary Care Provider Active Start: February 27, 2025 End: February 27, 2025 Dr. Jennifer Gordon MD Referring Provider Active Start: February 27, 2025 End: February 27, 2025 DANIEL Archer Attending Provider Active Star t: February 27, 2025 End: February 27, 2025 Team Status: Inactive Member Role/Relationship Status Dates Dr. Jennifer Gordon MD Primary Care Provider Active Start: February 27, 2025 End: February 27, 2025 Dr. Melvin Oshea MD Attending Provider Active S tart: February 27, 2025 End: February 27, 2025 Team Status: Inactive Member Role/Relationship Status Dates Dr. Jennifer Gordon MD Primary Care Provider Active Start: March 27, 2025 End: March 27, 2025 Dr. Jennifer Gordon MD Referring Provider Active Start: March 27, 2025 End: March 27, 2025 Dr. Rusty Dozier MD Attending Provider Active Start: March 27, 2025 End: March 27, 2025 Team Status: Inactive Member Role/Relationship Status Dates Dr. Jennifer Gordon MD Primary Care Provider Active Start: April 03, 2025 End: April 03, 2025 Dr. Jennifer Godron MD Referring Provider Active Start: April 03, 2025 End: April 03, 2025 Cary Jacobsen MD Attending Provider Active St art: April 03, 2025 End: April 03, 2025 Team Status: Inactive Member Role/Relationship Status Dates Dr. Jennifer Gordon MD Primary Care Provider Active Start: April 04, 2025 End: April 04, 2025 Dr. Jennifer Gordon MD Referring Provider Active Start: April 04, 2025 End: April 04, 2025 Colette Black RECEPTION CENTRE MANAGER-C Attending Provider Active Start: April 04, 2025 End: April 04, 2025 Team Status: Inactive Member Role/Relationship Status Dates Dr. Jennifer Gordon MD Primary Care Provider Active Start: 2025 End: 2025 Dr. Jennifer Gordon MD Attending Provider Active Start: 2025 End: 2025 Dr. Jennifer Gordon MD Referring Provider Active Start: 2025 End: 2025 Team Status: Inactive Member Role/Relationship Status Dates Dr. Jennifer Gordon MD Primary Care Provider Active Start: 2025 End: 2025 Dr. Jennifer Gordon MD Attending Provider Active Start: 2025 End: 2025 Dr. Jennifer Gordon MD Referring Provider Active Start: 2025 End: 2025 Team Status: Inactive Member Role/Relationship Status Dates Dr. Jennifer Gordon MD Primary Care Provider Active Start: April 17, 2025 End: April 17, 2025 Sasha Heredia RECEPTION CENTRE MANAGER, RECEPTION CENTRE MANAGER-C Attending Provider Active Start: April 17, 2025 End: April 17, 2025 Sasha Heredia RECEPTION CENTRE MANAGER, RECEPTION CENTRE MANAGER-C Referring Provider Active Start: April 17, 2025 End: April 17, 2025 Team Status: Inactive Member Role/Relationship Status Dates Dr. Jennifer Gordon MD Primary Care Provider Active Start: May 07, 2025 End: May 07, 2025 Dr. Jennifer Gordon MD Attending Provider Active Start: May 07, 2025 End: May 07, 2025 Dr. Jennifer Gordon MD Referring Provider Active Start: May 07, 2025 End: May 07, 2025 Team Status: Inactive Member Role/Relationship Status Dates Dr. Jennifer Gordon MD Primary Care Provider Active Start: June 17, 2025 End: June 17, 2025 Dr. Jennifer Gordon MD Referring Provider Active Start: June 17, 2025 End: June 17, 2025 YNES Barros Attending Provider Active Start: June 17, 2025 End: June 17, 2025 Team Status: Inactive Member Role/Relationship Status Dates Dr. Jennifer Gordon MD Primary Care Provider Active Start: February 27, 2025 End: February 27, 2025 Dr. Jennifer Gordon MD Referring Provider Active Start: February 27, 2025 End: February 27, 2025 DANIEL Archer Attending Provider Active Star t: February 27, 2025 End: February 27, 2025 Team Status: Inactive Member Role/Relationship Status Dates Dr. Jennifer Gordon MD Primary Care Provider Active Start: February 27, 2025 End: February 27, 2025 Dr. Melvin Oshea MD Attending Provider Active S tart: February 27, 2025 End: February 27, 2025 Team Status: Inactive Member Role/Relationship Status Dates Dr. Jennifer Gordon MD Primary Care Provider Active Start: March 27, 2025 End: March 27, 2025 Dr. Jennifer Gordon MD Referring Provider Active Start: March 27, 2025 End: March 27, 2025 Dr. Rusty Dozier MD Attending Provider Active Start: March 27, 2025 End: March 27, 2025 Team Status: Inactive Member Role/Relationship Status Dates Dr. Jennifer Gordon MD Primary Care Provider Active Start: April 03, 2025 End: April 03, 2025 Dr. Jennifer Gordon MD Referring Provider Active Start: April 03, 2025 End: April 03, 2025 Cary Jacobsen MD Attending Provider Active St art: April 03, 2025 End: April 03, 2025 Team Status: Inactive Member Role/Relationship Status Dates Dr. Jennifer Gordon MD Primary Care Provider Active Start: April 04, 2025 End: April 04, 2025 Dr. Jennifer Gordon MD Referring Provider Active Start: April 04, 2025 End: April 04, 2025 Colette M Rufener , RECEPTION CENTRE MANAGER-C Attending Provider Active Start: April 04, 2025 End: April 04, 2025 Team Status: Inactive Member Role/Relationship Status Dates Dr. Jennifer Gordon MD Primary Care Provider Active Start: 2025 End: 2025 Dr. Jennifer Gordon MD Attending Provider Active Start: 2025 End: 2025 Dr. Jennifer Gordon MD Referring Provider Active Start: 2025 End: 2025 Team Status: Inactive Member Role/Relationship Status Dates Dr. Jennifer Gordon MD Primary Care Provider Active Start: April 17, 2025 End: April 17, 2025 Sasha Heredia RECEPTION CENTRE MANAGER, RECEPTION CENTRE MANAGER-C Attending Provider Active Start: April 17, 2025 End: April 17, 2025 Sasha Heredia RECEPTION CENTRE MANAGER, RECEPTION CENTRE MANAGER-C Referring Provider Active Start: April 17, 2025 End: April 17, 2025 Team Status: Inactive Member Role/Relationship Status Dates Dr. Jennifer Gordon MD Primary Care Provider Active Start: May 07, 2025 End: May 07, 2025 Dr. Jennifer Gordon MD Attending Provider Active Start: May 07, 2025 End: May 07, 2025 Dr. Jennifer Gordon MD Referring Provider Active Start: May 07, 2025 End: May 07, 2025 Team Status: Inactive Member Role/Relationship Status Dates Dr. Jennifer Gordon MD Primary Care Provider Active Start: June 17, 2025 End: June 17, 2025 Dr. Jennifer Gordon MD Referring Provider Active Start: June 17, 2025 End: June 17, 2025 Colette Black NP-C Attending Provider Active Start: June 17, 2025 End: June 17, 2025 Team Status: Active Member Role/Relationship Status Dates Dr. Jennifer Gordon MD Primary Care Provider Active Start: June 24, 2025 LOUIS BarrosC Attending Provider Active Start: June 24, 2025 LOUIS BarrosC Referring Provider Active Start: June 24, 2025 Team Status: Inactive Member Role/Relationship Status Dates Dr. Jennifer Gordon MD Primary Care Provider Active Start: June 26, 2025 End: June 26, 2025 Dr. Jennifer Gordon MD Referring Provider Active Start: June 26, 2025 End: June 26, 2025 LOUIS TomlinsonC Attending Provider Active Start: June 26, 2025 End: June 26, 2025 Team Status: Inactive Member Role/Relationship Status Dates Dr. Jennifer Gordon MD Primary Care Provider Active Start: March 27, 2025 End: March 27, 2025 Dr. Jennifer Gordon MD Referring Provider Active Start: March 27, 2025 End: March 27, 2025 Dr. Rusty Dozier MD Attending Provider Active Start: March 27, 2025 End: March 27, 2025 Team Status: Inactive Member Role/Relationship Status Dates Dr. Jennifer Gordon MD Primary Care Provider Active Start: April 03, 2025 End: April 03, 2025 Dr. Jennifer Gordon MD Referring Provider Active Start: April 03, 2025 End: April 03, 2025 Cary Jacobsen MD Attending Provider Active St art: April 03, 2025 End: April 03, 2025 Team Status: Inactive Member Role/Relationship Status Dates Dr. Jennifer Gordon MD Primary Care Provider Active Start: April 04, 2025 End: April 04, 2025 Dr. Jennifer Gordon MD Referring Provider Active Start: April 04, 2025 End: April 04, 2025 Colette Black NP-C Attending Provider Active Start: April 04, 2025 End: April 04, 2025 Team Status: Inactive Member Role/Relationship Status Dates Dr. Jennifer Gordon MD Primary Care Provider Active Start: 2025 End: 2025 Dr. Jennifer Gordon MD Attending Provider Active Start: 2025 End: 2025 Dr. Jennifer Gordon MD Referring Provider Active Start: 2025 End: 2025 Team Status: Inactive Member Role/Relationship Status Dates Dr. Jennifer Gordon MD Primary Care Provider Active Start: 2025 End: 2025 Dr. Jennifer Gordon MD Attending Provider Active Start: 2025 End: 2025 Dr. Jennifer Gordon MD Referring Provider Active Start: 2025 End: 2025 Team Status: Inactive Member Role/Relationship Status Dates Dr. Jennifer Gordon MD Primary Care Provider Active Start: April 17, 2025 End: April 17, 2025 Sasha Heredia RECEPTION CENTRE MANAGER, RECEPTION CENTRE MANAGER-C Attending Provider Active Start: April 17, 2025 End: April 17, 2025 Sasha Heredia RECEPTION CENTRE MANAGER, RECEPTION CENTRE MANAGER-C Referring Provider Active Start: April 17, 2025 End: April 17, 2025 Team Status: Inactive Member Role/Relationship Status Dates Dr. Jennifer Gordon MD Primary Care Provider Active Start: May 07, 2025 End: May 07, 2025 Dr. Jennifer Gordon MD Attending Provider Active Start: May 07, 2025 End: May 07, 2025 Dr. Jennifer Gordon MD Referring Provider Active Start: May 07, 2025 End: May 07, 2025 Team Status: Inactive Member Role/Relationship Status Dates Dr. Jennifer Gordon MD Primary Care Provider Active Start: June 17, 2025 End: June 17, 2025 Dr. Jennifer Gordon MD Referring Provider Active Start: June 17, 2025 End: June 17, 2025 Colette Black NP-C Attending Provider Active Start: June 17, 2025 End: June 17, 2025 Team Status: Inactive Member Role/Relationship Status Dates Dr. Jennifer Gordon MD Primary Care Provider Active Start: June 24, 2025 End: June 24, 2025 Colette Black NP-C Attending Provider Active Start: June 24, 2025 End: June 24, 2025 Colette Black NP-C Referring Provider Active Start: June 24, 2025 End: June 24, 2025 Team Status: Inactive Member Role/Relationship Status Dates Dr. Jennifer Gordon MD Primary Care Provider Active Start: June 26, 2025 End: June 26, 2025 Dr. Jennifer Gordon MD Referring Provider Active Start: June 26, 2025 End: June 26, 2025 Mihaela Simpson NP-C Attending Provider Active Start: June 26, 2025 End: June 26, 2025 Team Status: Active Member Role/Relationship Status Dates Dr. Jennifer Gordon MD Primary Care Provider Active Start: June 26, 2025 YNES Tomlinson Attending Provider Active Start: June 26, 2025 YNES Tomlinson Referring Provider Active Start: June 26, 2025 Team Status: Inactive Member Role/Relationship Status Dates Dr. Jennifer Gordon MD Primary Care Provider Active Start: June 26, 2025 End: June 26, 2025 YNES Tomlinson Attending Provider Active Start: June 26, 2025 End: June 26, 2025 YNES Tomlinson Referring Provider Active Start: June 26, 2025 End: June 26, 2025 Goals (unrecognized section and content) Goals may be documented in a n alternate sectionGoals may be documented in an alternate sectionGoals may be documented in an alternate sectionGoals may be documented in an alternate sectionGoals may be documented in an alternate sectionGoals may be documented in an alternate sectionGoals may be documented in an alternate sectionGoals may be documented in an alternate sectionGoals may be documented in an alternate sectionGoals may be documented in an alternate sectionGoals may be documented in an alternate sectionGoals may be documented in an alternate sectionGoals may be documented in an alternate sectionGoals may be documented in an alternate sectionGoals may be documented in an alternate sectionGoals may be documented in an alternate sectionGoals may be documented in an alternate sectionGoals may be documented in an alternate sectionGoals may be documented in an alternate sectionGoals may be documented in an alternate sectionGoals may be documented in an alternate sectionGoals may be documented in an alternate sectionGoals may be documented in an alternate sectionGoals may be documented in an alternate sectionGoals may be documented in an alternate section FOR RECORDS PERTAINING TO PATIENTS WHO ARE OR HAVE BEEN ENROLLED IN A CHEMICAL DEPENDENCY/SUBSTANCEABUSE PROGRAM, SOME INFORMATION MAY BE OMITTED. This clinical summary was aggregated from multiple sources. Caution should be exercised in using it in the provision of clinical care. This summary normalizes information from multiple sources, and as a consequence, information in this document may materially change the coding, format and clinical context of patient data. In addition, data may be omitted in some cases. CLINICAL DECISIONS SHOULD BE BASED ON THE PRIMARY CLINICAL RECORDS. [facility]. provides no warranty or guarantee of the accuracy or completeness of information in this document.
[2025-07-17 23:03] VITALS: BP 182/91; PULSE 69; RESP 18; O2SAT 97
[2025-07-17 23:08] VITALS: BP 182/91; PULSE 69; RESP 18; TEMP 36.7; O2SAT 97
[2025-07-17 23:58] VITALS: BMI 36.6
[2025-07-18] VITALS (10 sets, daily range): BP systolic 143–176; BP diastolic 67–86; PULSE 62–76; RESP 16–18; TEMP 36.1–36.8; O2SAT 93–100; BMI 36.8
[2025-07-18] MEDS: Sodium Chloride 19.25 MEQ in Dextrose 10%-Water 250 ML 150 MEQ IV ×13 (00:11→22:30)
[2025-07-18] MEDS: DOXEPIN HCL 50 MG CAPSULE 100 MG PO ×2 (01:09→20:56)
[2025-07-18 01:20] LABS: Magnesium 2.1 mg/dL (1.5-2.2)
[2025-07-18 01:24] LABS: Anion Gap 9 (5-15); BUN 20 mg/dL (4-19); BUN/Creat Ratio 11.7 RATIO (10-20); Calcium,Total 8.8 mg/dL (7.6-11.0); Carbon Dioxide 27.6 mmol/L (21.0-32.0); Chloride 94 mmol/L (98-108); Estimated Creatinine Clearance 37.57 ml/min (50-250); Glucose 137 mg/dL (70-99); Potassium 4.8 mmol/L (3.3-5.1)
--- OUTSIDE RECORDS SUMMARY | 2025-07-18 01:34 | XMS RPT_ITS | CCD ---
Author Organization [facility] Care Team Providers Care Industrial Real Estate Agent Name Role Phone Elana Pena Unavailable Elana Pena Unavailable Unavailable Unavailable Unavailable ELANA PENA Unavailable Unavailable MANUELITO MORALES Unavailable Unavailable TOPCHIKI, MANUELITO A Unavailable Unavailable ELANA PENA Unavailable Unavailable DENNIS ATKINS Unavailable Unavailable BETY HERNANDEZ Unavailable Unavailable BETY HERNANDEZ Unavailable Unavailable Daggett Oscar A Admitting Unavailable Karel Oscar A [...] Care Provider Elana Pena DO Unavailable Lashondaer SOLDERER, Jonathan L. Primary Care Provider Wilfridlinger SOLDERER, Jonathan L. Unavailable Elana Pena DO Unavailable Hellinger SOLDERER, Jonathan L. Unavailable Lashondaer SOLDERER, Jonathan L. Primary Care Provider [phone] Lashondaer RUIZ, Jonathan L. Unavailable JADA VARGAS Admitting Unavail able JADA VARGAS Attending Unavail able LASHONDAMONTSERRAT JONATHAN L. Primary Care Unavailable KINGS ALLEN Consulting Unavailable JADA VARGAS Admitting Unavail able JADA VARGAS Attending Unavail able KRISH JONATHAN Monica Primary Care Unavailable Dr. Rusty Dozier Attending Provider Jonathan Mitchell Primary Care Provider Krish GRAIN CLEANER, GRAIN CLEANER-C Jonathan Referring Provider [phone] Dr. Jennifer Gordon Primary Care Provider Dr. Jennifer Gordon Attending Provider Dr. Oscar Arshad Attending Provider Krish GRAIN CLEANER, GRAIN CLEANER-C Jonathan Referring Provider Dr. Jennifer Gordon Primary Care Provider Dr. Jennifer Gordon Attending Provider Dr. Oscar Arshad Attending Provider Dr. Rusty Dozier Referring Provider Dr. Rusty Dozier Attending Provider Dr. Jennifer Gordon Referring Provider [phone] Dr. Rusty Dozier Referring Provider Dr. Jennifer Gordon Primary Care Provider Dr. Jennifer Gordon Referring Provider [phone] Giovanna GRAIN CLEANER, GRAIN CLEANER-C Sasha Attending Provider Aleisha Chisholm Attending Provider [...] Provider Jacoby HUNTER, Dr. Ojeda Attending Provider Jacoby HUNTER, Dr. Ojeda Referring Provider Barrera HUNTER, Dr. Espinal Attending Provider Barrera HUNTER, Dr. Espinal Emergency Provider Hui Roberts Attending Provider Dorie HUNTER, Dr. Charles Attending Provider [phone] Cary Jacobsen MD Attending Provider [phone] Hui Roberts Referring Provider Heidi HUNTER, Dr. Rodriguez Primary Care Provider [phone] Heidi HUNTER, Dr. Rodriguez Referring Provider Cary Jacobsen MD Referring Provider [phone] Wayne JIMENEZ-CColette Attending Provider Dr. Jennifer Gordon MD Attending Provider Giovanna JIMENEZ-CSasha Attending Provider Giovanna GRAIN CLEANER-CSasha Referring Provider NO, PHYSICIAN Primary Care Unavailable [...] Primary Care Unavailable INGEJOSSIE HAMILTON Attending Unavailable [facility] Consulting Unavai lable EVAN, LUIS MIGUELQIKrzysztof FIRAS Admitting Unavailable NO, PHYSICIAN Primary Care Unavailable NO, PHYSICIAN Primary Care Unavailable MOSALEM, AHMED MOHAMED Admitting Unavailab le MOSALEM, AHMED MOHAMED Consulting Unavailab le KATIE RAMÍREZ Attending Unavailable VIAU, RIVAS NOLAN Consulting Unavailable INGE, IVELISSEZAGarrick Attending Unavailable SALEM, AHMED Admitting Unavailable [facility] Consulting Unavai lable NO, PHYSICIAN Primary Care Unavailable Not On File, Doctor Primary Care Provider Heidi HUNTER, Dr. Rodriguez Primary Care Provider [phone] Dr. Jennifer Gordon MD Referring Provider Dorie HUNTER, Dr. Charles Attending Provider [phone] Hui Roberts Attending Provider [phone] Dr. Rusty Dozier [...] Provider [phone] Wayne JIMENEZ-CColette Referring Provider Tatinaa JIMENEZ-CMihaela Attending Provider [phone] Dr. Jennifer Gordon MD Primary Care Provider [phone] Dr. Jennifer Gordon MD Referring Provider Tatiana GRAIN CLEANER-C, Mihaela Referring Provider [phone] WILFRIDBAYRONJONATHAN RUFFIN URIAH Primary Care Unavailable Herve Hyman Attending Unavailable Unknown, Doctor Primary Care Unavailable Boogie, Herve Attending Unavailable Unknown, Doctor Primary Care Unavailable Boogie, Herve Attending Unavailable Hui Whitehead Attending Unavailable [place], Jennifer Referring Unavailable [place], Jennifer Primary Care Unavailable [place], Jennifer Primary Care Unavailable Ungerer, Mihaela Attending Unavailable Ungerer, Mihaela Referring Unavailable Flavia Shine Attending Unavailable Heidi, Jennifer Referring Unavailable Heidi, Jennifer Primary Care Unavailable Rusty Dozier Attending Unavailable Baddour, Rusty Referring Unavailable [place], Jennifer Primary Care Unavailable [place], Jennifer Referring Unavailable [place], Jennifer Primary Care Unavailable Heidi, Jennifer Attending Unavailable Heidi, Jennifer Primary Care Unavailable Colette Black Attending Unavailable Colette Black Referring Unavailable Heidi, Jennifer Primary Care Unavailable Andree Hutchins Attending Unavailable nAdree Hutchins Referring Unavailable Teddy Rust Attending Unavailable [place], Jennifer Primary Care Unavailable [place], Jennifer Primary Care Unavailable [place], Jennifer Referring Unavailable Rusty Dozier Attending Unavailable [place], Jennifer Primary Care Unavailable Heidi, Jennifer Referring Unavailable Mihaela Simpson Attending Unavailable Heidi, Jennifer Primary Care Unavailable Rusty Dozier Attending Unavailable Heidi, Jennifer Referring Unavailable Colette Black Attending Unavailable [place], Jennifer Referring Unavailable Heidi, Jennifer Primary Care Unavailable Melvin Oshea Attending Unavailable [place], Jennifer Primary Care Unavailable VenturaHui Attending Unavailable Heidi, Jennifer Referring Unavailable Heidi, Jennifer Primary Care Unavailable [place], Jennifer Referring Unavailable [place], Jennifer Primary Care Unavailable [place], Jennifer Attending Unavailable [place], Jennifer Referring Unavailable [place], Jennifer Attending Unavailable Heidi, Jennifer Primary Care Unavailable Heidi, Jennifer Referring Unavailable Heidi, Jennifer Attending Unavailable [place], Jennifer Primary Care Unavailable Colette Black Attending Unavailable [place], Jennifer Primary Care Unavailable Heidi, Jennifer Referring Unavailable Cary Jacobsen Attending Unavailable Heidi, Jennifer Primary Care Unavailable Heidi, Jennifer Referring Unavailable [place], Jennifer Primary Care Unavailable Colette Black Referring Unavailable Cristian Joseph Attending Unavailable Cary Jacobsen Attending Unavailable Heidi, Jennifer Referring Unavailable Heidi, Jennifer Primary Care Unavailable Heidi, Jennifer Primary Care Unavailable Giovanna GRAIN CLEANER, Sasha Referring Unavailable Giovanna GRAIN CLEANER, Sasha Attending Unavailable VenturaHui Attending Unavailable Ventura, Hui Referring Unavailable Heidi, Jennifer Primary Care Unavailable Colette Black Attending Unavailable Dorie, Melvin Attending Unavailable Heidi, Jennifer Primary Care Unavailable Melvin Oshea Attending Unavailable [place], Jennifer Primary Care Unavailable Cary Jacobsen Attending Unavailable [place], Jennifer Referring Unavailable Heidi, Jennifer Primary Care Unavailable Heidi, Jennifer Primary Care Unavailable Rusty Dozier Attending Unavailable Rusty Dozier Referring Unavailable Cary Jacobsen Attending Unavailable Cary Jacobsen Referring Unavailable [place], Jennifer Primary Care Unavailable Dr. Ramakrishna Maher MD Emergency Provider Dr. Elana Deshpande DO Admit Provider Unavail able Dr. Elana Deshpande DO Attending Provider Unav ailable Allergies Allergy Classification Reported Allergen(s) Allergy Type Date of Onset Reaction(s) Facility Penicillins (antibiotic) (1 source) Penicillins Drug Allergy 5 Unknown, Other (See Comments) [facility] (17 sources) naproxen Propensity to adverse reactions to drug 7 [facility] Work Phone: (20 sources) Penicillins; Translations: [PENICILLINS] Propensity to adverse reactions to drug 5 Unknown, Other (See Comments) [facility] Work Phone: Comment on above: allerigic when a chi ld (1 source) Penicillins Drug allergy (disorder) [facility] (1 source) Penicillins Propensity to adverse reactions to drug 6 [facility] (17 sources) Penicillins Propensity to adverse reactions to drug 5 Unknown, Other (See Comments) [facility] (20 sources) Penicillins Propensity to adverse reactions to drug 5 Unknown, Other (See Comments) [facility] (8 sources) Penicillins Propensity to adverse reactions to drug 5 Unknown, Other (See Comments) [facility] (16 sources) Vancomycin; Translations: [VANCOMYCIN] Drug Allergy 5 Rash [facility] (9 sources) fremanezumab Drug Allergy 5 Diarrhea [facility] (1 source) Penicillins Drug allergy (disorder) 5 [facility] Repository (1 source) Vancomycin Drug Allergy 5 [facility] Repository (1 source) fremanezumab-vfr m Drug allergy (disorder) 5 [facility] Repository Medications Current Medications Medication Drug Class(es) [...] (20 sources) beta2-Adrenergic Agonist Start: 06-17-2025 take 2.5 mg by inhalation every six hours as needed for wheezing Albuterol Sulfate 2.5 mg /3 mL (0.083 %) solution for nebulization Active 2.5 mg INHALATION EVERY 6 HOURS as needed for wheezing June 17, 2025 12:00am Start: 06-17-2025 take 1 mg by inhalat ion every six hours as needed for wheezing Albuterol Sulfate 2.5 mg /3 mL (0.083 %) solution for nebulization Active mg INHALATION EVERY 6 HOURS as needed for wheezing June 17, 2025 12:00am Start: 04-04-2025 Albuterol Sulf ate 90 mcg/actuation HFA aerosol inhaler Active 2 NMA INHALATION EVERY 6 HOURS as needed for copd April 04, 2025 12:00am Start: 02-18-2025 End: [...] (RT), wheezing, Starting on Mon06/21/22 at 2026 Start: 03-30-2022 End: 02-18-2025 take [...] hours as needed for wheezing. 0 Active ALBUTEROL, REFILL, INHALATIO N (17 sources) ALBUTEROL, REFIL L, INHALATION Inhale by mouth. Active ALBUTEROL, REFIL L, INHALATION Inhale by mouth. 0 Active calcium polycarbophil 625 mg oral tablet (1 source) Start: 07-19-2022 End: 07-19-2023 take 1 tablet by mouth once daily polycarbophil (FIBERCON) 625 mg tablet Take 1 (one) tablet (625 mg total) by mouth daily . 30 tablet 11 07/19/2022 07/19/2023 Active cetirizine hydrochloride 10 mg [...] 2024 12:00am As directed Compr.Stocking,Thig h,Short,Lrg misc (13 sources) Start: 02-29-2024 Compr.Stocking,Thig h,Short,Lrg misc Active [...] .MEDSUPPLY February 07, 2023 12:00am Expiration 02/07/2026 Ubmruhniviu-Baunqrakw-Kxfffu er (20 sources) Start: 04-04-2025 Esvjdcdhtfl-Uyntlecgd-Pttbph er (Trelegy Ellipta) 200-62.5-25 mcg blister with device Active 1 NMA INHALATION DAILY 3 April 04, 2025 2:17pm Obstructive sleep apnea syndrome Obstructive sleep apnea (adult) (pediatric) breathing Start: 04-04-2025 Fluticasone-Um eclidin-Vilanter (Trelegy Ellipta) 200-62.5-25 mcg blister with device Active 1 NMA INHALATION DAILY April 04, 2025 2:17pm Start: 11-07-2024 End: 04-04-2025 Tzcoilzsxrp-Qwkcvcqnn-Sxkqlm er (Trelegy Ellipta) 200-62.5-25 mcg blister with device Discontinued 1 NMA INHALATION DAILY 3 November 07, 2024 11:37am April 04, 2025 2:18pm Obstructive sleep apnea syndrome Obstructive sleep apnea (adult) (pediatric) breathing Start: 11-07-2024 End: 04-04-2025 Jssqbiebldg-Gctjresqx-Qoovpl er (Trelegy Ellipta) 200-62.5-25 mcg blister with device Discontinued 1 NMA INHALATION DAILY November 07, 2024 11:37am April 04, 2025 2:18pm Start: 11-07-2024 Fluticasone-Um eclidin-Vilanter (Trelegy Ellipta) 200-62.5-25 mcg blister with device Active 1 NMA INHALATION DAILY November 07, 2024 11:37am Start: 07-17-2024 End: 11-07-2024 Lpcqfrvlxoh-Ukqkepuwy-Mefelt er (Trelegy Ellipta) 200-62.5-25 mcg blister with device Discontinued 1 NMA INHALATION DAILY 3 July 17, 2024 1:44pm November 07, 2024 11:37am Obstructive sleep apnea syndrome Obstructive sleep apnea (adult) (pediatric) breathing Start: 07-17-2024 End: 11-07-2024 Qzcludhrklh-Yaosddayy-Uuqrbt er (Trelegy Ellipta) 200-62.5-25 mcg blister with device Discontinued 1 NMA INHALATION DAILY July 17, 2024 1:44pm November 07, 2024 11:37am Start: 02-12-2024 End: 07-17-2024 Ygwzukzknem-Ynlzlmktg-Fnciie er (Trelegy Ellipta) 200-62.5-25 mcg blister with device Discontinued 1 NMA INHALATION DAILY 3 February 12, 2024 8:20am July 17, 2024 1:44pm Obstructive sleep apnea syndrome Obstructive sleep apnea (adult) (pediatric) breathing Start: 02-12-2024 End: 07-17-2024 Fjjygnkrora-Enjhxiodw-Cnzocx er (Trelegy Ellipta) 200-62.5-25 mcg blister with device Discontinued 1 NMA INHALATION DAILY February 12, 2024 8:20am July 17, 2024 1:44pm Start: 02-12-2024 Fluticasone-Um eclidin-Vilanter (Trelegy Ellipta) 200-62.5-25 mcg blister with device Active 1 INH INHALATION DAILY February 12, 2024 8:20am Start: 02-24-2023 End: 02-12-2024 Hfeqadibtij-Axyyeqaaw-Namuux er (Trelegy Ellipta) 200-62.5-25 mcg blister with device Discontinued 1 NMA INHALATION DAILY 3 February 24, 2023 2:38pm February 12, 2024 8:20am Obstructive sleep apnea syndrome Obstructive sleep apnea (adult) (pediatric) Start: 02-24-2023 End: 02-12-2024 Hfeneweyjln-Awnwxqgdf-Ulhmtl er (Trelegy Ellipta) 200-62.5-25 mcg blister with device Discontinued 1 NMA INHALATION DAILY February 24, 2023 2:38pm February 12, 2024 8:20am Start: 02-24-2023 End: 02-12-2024 Emnuckqwaiu-Yagelutca-Dhxfwo er (Trelegy Ellipta) 200-62.5-25 mcg blister with [...] 24, 2023 2:38pm Start: 02-24-2023 End: 02-24-2023 Eilfnwfzpnh-Gpdarjqiy-Ymhsfe er (Trelegy Ellipta) 200-62.5-25 mcg blister with device Discontinued 1 NMA INHALATION DAILY February 24, 2023 12:00am February 24, 2023 2:38pm Start: 02-24-2023 End: 02-24-2023 Dfspsdniuhi-Sjzaftfpm-Kxsuub er (Trelegy Ellipta) 200-62.5-25 mcg blister with device Discontinued 1 INH INHALATION DAILY February 23, 2023 11:00pm February 24, 2023 1:38pm Start: 02-24-2023 End: 02-24-2023 Klxeploilur-Vnsqxehrw-Nzeocx er (Trelegy Ellipta) 200-62.5-25 mcg blister with device Discontinued 1 INH INHALATION DAILY February 24, 2023 12:00am February 24, 2023 2:38pm ylroxatchdp-kmuyeaspw-rrxtam er (Trelegy Ellipta) 200-62.5-25 mcg DsDv (20 sources) Start: 12-30-2021 qogstczultc-zyejkpoor-zxismx er (Trelegy Ellipta) 200-62.5-25 mcg DsDv Inhale [...] mg, Oral, Daily, Fir st dose on 02/18/25 at 0900 Start: 02-16-2025 20 mg, Intrave nous, 2 times daily, First dose on 02/16/25 at 1230, For 3 doses, Administer IV [...] Active 10 mg PO daily 2025 1:47pm hypertension Start: 02-14-2025 End: 02-14-2025 take 20 mg by mouth once daily 20 mg, Oral, Daily, Fir st dose on Mon02/14/25 at 0900 Start: 09-02-2024 End: 09-03-2024 take 40 mg by mouth once daily 40 mg, Oral, Daily, Fir st dose on Mon09/02/24 at 2000 Start: 07-02-2024 End: 2025 take 1 tablet by mouth once daily Lisinopril 20 mg tablet Discontinued 20 mg PO daily April 03, 2025 8:17am 2025 1:47pm Start: 2024 End: 10-16-2024 take 1 tablet by mouth once daily Lisinopril 10 mg tablet Discontinued 10 mg PO DAILY 2024 12:00am October 16, 2024 2:22pm blood [...] to Post Procedure take 2 tablets by mo uth once daily lisinopril (ZESTRIL) 20 mg oral tablet Take 2 tablets by mouth once daily. Takes 40mg daily. Active lovastatin 10 mg oral tablet (20 sources) HMG-CoA Reductase Inhibitor Start: 06-05-2023 End: 07-17-2025 take 1 tablet by mouth once daily in the evening Lovastatin 10 mg tablet Active 10 mg PO EVERY EVENING July 17, 2025 12:58pm cholesterol Magnesium Sulfate / potassium sulfate / sodium sulfate (1 source) Start: 01-07-2022 sodium,soumya um,m ag sulfates (SUPREP BOWEL PREP KIT) 17.5 gram-3.13 gram-1.6 gram oral soln Indications: Hx of colonic polyps Take as directed by prescribing physician's office. . 354 mL 0 01/07/2022 Active metoprolol tartrate 100 mg oral tablet (20 sources) beta-Adrenergic Saira Start: 02-13-2025 End: 02-18-2025 take 100 [...] 20 mg oral tablet (11 sources) Start: 2025 take 2 tablets by mouth once daily [...] . 10 tablet 0 05/07/2019 05/12/2019 Active sulfamethoxazole 800 mg / trimethoprim 160 mg [...] Daily (in the evening), First dose on Clive 09/22/24 at 0030, Avoid administration with soybean [...] mcg tablet Discontinued 175 ug PO DAILY November 29, 2024 2:08pm May 16, 2025 [...] mg, Oral, Nightly, F irst dose on 09/22/24 at 2100 Start: 09-03-2024 End: 09-03-2024 take 4 mg by mouth twice daily 4 mg, Oral, 2 times prashant ly, First dose on Mon09/03/24 at 0900 Start: 09-02-2024 End: 09-03-2024 take 12 mg by mouth once daily as needed for muscle spasms 12 mg, Oral, Nightly PRN, muscle spasms, Starting on Mon09/02/24 at 2245 Start: 04-18-2023 End: 04-08-2025 take [...] needed Start: 06-18-2018 take 1 tablet by ines once daily tiZANidine (ZANAFLEX) 2 mg oral tablet Take 1 tablet by mouth once daily. 06/18/2018 Active take 3 tablets by mo ut at bedtime, then take 2 tablets by [...] Active vitamin e 100 unt oral capsule (13 sources) Start: 01-06-2025 take 1 capsule by mouth once daily Vitamin E (Dl, Acetate) 45 mg (100 unit) capsule Active 45 mg PO daily January 06, 2025 1:00am supplement Completed/Discontinued Medications Medication Drug Class(es) Dates Sig [...] / oxyCODONE hydrochloride 5 mg oral tablet (13 sources) Opioid Agonist Start: 01-01-2025 End: 02-27-2025 Oxycodone-Acetaminophen (Percocet) 5-325 mg tablet Discontinued 1 {tbl} PO Q8H as needed for pain 12 5 0 January 01, 2025 February 27, 2025 2:33pm Acute neck pain Left cervical radiculopathy Cervicalgia Radiculopathy, cervical region albuterol 0.833 mg/ml / ipratropium bromide 0.167 mg/ml inhalation solution (20 sources) Anticholiner gic, beta2-Adrene rgic Agonist Start: 04-04-2025 End: 07-17-2025 take 1 mL by inhalation every four to six hours as needed for wheezing Ipratropium-Albuterol 0.5 mg-3 mg(2.5 mg base)/3 mL solution for nebulization Discontinued 3 mL INHALATION EVERY 4-6 HOURS as needed for shortness of breath or wheezing 180 6 April 04, 2025 12:00am July 17, 2025 11:01pm Start: 02-17-2025 End: 02-18-2025 take 3 mL by inhalation every six hours 3 mL, Inhalation, Every 6 hours scheduled (RT), First dose (after last modification) on Mon02/17/25 at 0815 Start: 02-14-2025 End: 02-17-2025 take 3 mL by inhalation every four hours 3 mL, Inhalation, Every 4 hours scheduled (RT), First dose on Mon02/14/25 at 0940 Start: 02-13-2025 End: 02-13-2025 take 3 mL by inhalation once 3 mL, Inhalation, Once (R T), On Gege 4/10/25 at 1705, For 1 dose Start: 09-21-2024 [...] 12/30/2021 04/04/2022 Discontinued (Stop Taking at Discharge) aluminum hydroxide 40 mg/ml / magnesium hydroxide [...] daily. 06/18/2018 Active take 2 tablets by mo mnh once daily amLODIPine (NORVASC) 5 MG tablet [...] Daily, Fir st dose on Mon09/02/24 at 2000 Start: 04-18-2023 Aspirin (Adult Low Dose Aspirin) 81 mg tablet,delayed release (DR/EC) Active 81 mg PO DAILY April 18, 2023 12:00am [facility] Start: 03-30-2022 End: 04-04-2022 take 81 mg by mouth once daily 81 mg, Oral, Daily, Fir st dose on Mon03/30/22 at 2000, PACU to Post Procedure atorvastatin 10 mg oral tablet (2 sources) HMG-CoA Reductase Inhibitor Start: 02-13-2025 End: 02-18-2025 take 10 mg by mouth once daily 10 mg, Oral, Nightly, First dose on Mon02/13/25 at 2345 Start: 09-02-2024 End: 09-03-2024 take 5 mg by mouth once daily 5 mg, Oral, Nightly, Fir st dose on Mon09/02/24 at 2100 azithromycin 250 mg oral tablet [...] Daily, First dose on 09/22/24 at 0900 Start: 04-18-2023 take 1 capsule by [facility] once daily Cholecalciferol (Vitamin D3) 50 mcg [...] 21, 2021 6:47pm take 1 tablet by ines th every week cholecalciferol (vitamin D3) 50 mcg [...] hour 150 mL/hr, Intravenous, Continuous, Starting on Mon02/13/25 at 2355, For 10 hours dextrose 10% [...] mg, Oral, Daily, F irst dose on Tu09/03/24 at 0900, [] Hold for loose stools. DO NOT CRUSH OR CHEW. docusate sodium 50 mg / sennosides, halfway 8.6 mg oral tablet (1 source) Start: [...] 07, 2025 11:14pm April 17, 2025 12:00pm mental health take 2 capsules by m outh once [...] mg PO DAILY April 18, 2023 12:00am supplement ferrous sulfate 324 mg (65 mg iron) [...] NaCl (DILAUDID) 15 mg/30 mL (0.5 mg/mL) [employer]IST (1 source) Start: 03-30-2022 End: 03-31-2022 Intravenous, Continuous, Starting on Mon03/30/22 at 2000, PACU to Post Procedure Use Port-Free Tubing in Non-Procedural Areas. hyoscyamine sulfate 0.125 mg oral tablet (17 sources) Start: 12-11-2023 End: 06-17-2024 take 1 [...] Intravenous, Once in imaging, contrast, Starting on Mon02/13/25 at 1705, For 1 dose iron carbonyl [...] HOURS as needed for loose stool 30 0 December 01, 2022 1:00am December 11, 2023 [...] 10 mg, Oral, Daily, First dose on Mon09/22/24 at 0900 50 ml magnesium sulfate 40 mg/ml injection (4 sources) Start: 02-17-2025 End: 02-17-2025 2 g, Intravenous, at 50 mL/hr, Once, On Mon02/17/25 at 1145, For 1 dose Start: 09-02-2024 End: 09-02-2024 2 g, Intravenous, at 50 mL/h r, Once, On Mon09/02/24 at 1130, For 1 dose Start: 06-28-2022 End: 06-29-2022 magnesium sulfate 2 g in [place] (SW) 50 mL IVPB Start: 06-25-2022 End: 06-25-2022 magnesium sulfate 2 g in [place] (SW) 50 mL IVPB meclizine [...] Start: 04-19-2021 take 1 tablet by ines once daily Multivit With Min-Folic Acid (One [...] mg, Oral, Daily, Fir st dose on 09/22/24 at 0900, Hold for SBP Start: 09-02-2024 End: 09-03-2024 take 30 mg by mouth once daily 30 mg, Oral, Daily, Fir st dose on 09/02/24 at 2000, DO NOT CRUSH OR CHEW. Start: 08-15-2022 End: 04-17-2025 take 1 tablet by mouth once daily Nifedipine 30 mg tablet extended release Discontinued 30 mg PO DAILY April 03, 2025 8:16am April 17, 2025 12:00pm blood pressure Start: 08-15-2022 NIFEdipine (AD ALAT CC) 30 MG 24 hr tablet 08/15/2022 Active nitroglycerin 0.4 mg sublingual tablet (2 sources) Nitrate Vasodilator Start: 02-13-2025 End: 02-18-2025 0.4 mg, Sublingual, Every 5 min PRN, chest pain, Starting on Gege 02/13/25 at 1704, For 2 doses, Anginal pain, may repeat [id number] x2, then notify physician. DO NOT CRUSH OR CHEW. Start: 09-02-2024 End: 09-03-2024 omeprazole 40 mg delayed release oral capsule (20 sources) Proton Pump Inhibitor Start: 12-11-2023 End: 04-17-2025 take 1 capsule by mouth once daily Omeprazole 40 mg capsule,delayed release(DR/EC) Discontinued 40 mg PO DAILY 90 November 22, 2024 5:45pm April 17, 2025 [...] g, Intravenous, at 12.5 mL/hr, Once, On [facility] 02/13/25 at 2130, For 1 dose, Start infuse 3 hours after loading dose of Zosyn 4.5 gm VESICANT, Indication: Sepsis Start: 02-13-2025 End: 02-13-2025 4.5 g, Intravenous, at 200 m L/hr, Once, On [facility] 02/13/25 at 1800, For 1 dose, VESICANT, Indication: [...] release (DR/EC) Discontinued 20 mg PO DAILY November 13, 2023 12:54pm December 11, 2023 9:15am rifAXIMin 550 mg oral tablet (18 sources) Rifamycin Antibacterial Start: 07-02-2024 End: 02-18-2025 take 1 tablet by mouth three times daily Rifaximin (Xifaxan) 550 mg tablet Discontinued 550 mg PO THREE TIMES A DAY July 02, 2024 12:00am January 06, 2025 11:22am Roflumilast (14 sources) Phosphodiesterase 4 Inhibitor Start: 06-17-2025 End: 07-17-2025 take 1 tablet by mouth once daily Roflumilast (Daliresp) 250 mcg tablet Discontinued 250 ug PO daily June 17, 2025 3:25pm July 17, 2025 11:03pm Stage 3 severe COPD by GOLD classification Chronic obstructive pulmonary disease, unspecified Start: 06-17-2025 take 1 tablet by ines th once [...] ug PO daily April 04, 2025 12:00am sennosides, halfway 8.6 mg oral tablet (2 sources) Start: [...] 100 mL/hr, Intrav enous, Continuous, Starting on 03/31/22 at 1300, For 24 hours, PACU to Post Procedure Start: 03-30-2022 End: 04-04-2022 sodium chloride (PF) (NS) fl ush 5 mL Start: 04-14-2021 End: 04-14-2021 sodium chloride 0.9% (NS) kimber garry 1,000 mL sodium zirconium cyclosilicate 31643 mg powder for oral suspension (1 source) [...] Acute and unspecified renal failure (20 sources) [id number] renal failure; Translations: [Acute kidney failure, unspecified] [...] kidney disease) stage 3, GFR 30-59 ml/min ([facility])] Onset: 06-17-20 19 Chronic Chronic kidney disease (2 sources) Chronic [...] heart failure; Translations: [Heart failure, unspecified] Onset: 02-14-2002-13-2025 Chronic Coronary atherosclerosis and other heart disease (20 sources) Coronary arteriosclerosis; Translations: [Atherosclerotic heart disease of [place] coronary artery without angina pectoris] 04-18-2023 Chronic Deficiency and other anemia (6 sources) Anemia; Translations: [Anemia, unspecified] 06-26-2025 Episodic Deficiency and other anemia (1 source) Anemia, unspecified; Translations: [Anemia, unspecified] Onset: 07-02-20 Episodic Diabetes mellitus without complication (20 sources) Other abnormal glucose; Translations: [Other abnormal glucose] 02-29-2024 Episodic Disorders of lipid metabolism (15 sources) Mixed hyperlipidemia; Translations: [Mixed hyperlipidemia] 12-11-2023 Chronic Essential hypertension (20 sources) Hypertensive disorder; Translations: [Essential (primary) hypertension] Onset: 04-05-20 19 04-05-2019 Chronic Fluid and electrolyte disorders (14 sources) Hyperkalemia; Translations: [Hyperkalemia] Episodic Gastrointestinal hemorrhage [...] malignant neoplasm] 10-16-2024 Episodic Other circulatory disease (13 sources) History of cardiac arrhythmia; Translations: [Personal history of other diseases of the circulatory system] 04-22-2024 Episodic Other connective tissue disease (2 sources) Disorder of skeletal muscle; Translations: [Myopathy] Onset: 07-19-20 16 07-19-2016 Episodic Other connective tissue disease (5 sources) Adhesive capsulitis of shoulder; Translations: [Adhesive capsulitis of shoulder] Episodic Other connective tissue disease (20 sources) Muscle pain; Translations: [Myalgia, unspecified site] Onset: 11-14-19 17 11-14-2016 Episodic Other connective tissue disease (20 sources) Recurrent falls ; Translations: [Repeated falls] 12-01-2022 Episodic Other connective tissue disease (3 sources) Repeated falls; Translations: [History of fall] 12-01-2022 Episodic Other connective tissue disease (1 source) Trigger thumb of left hand; Translations: [Trigger thumb, left thumb] 10-16-2023 Episodic Other connective tissue disease (15 sources) Rhabdomyolysis; Translations: [Paroxysmal rhabdomyolysis] Onset: 06-25-20 22 06-10-2024 Episodic Other connective tissue disease (13 sources) Spasm; Translations: [Other muscle spasm] 01-09-2025 Episodic Other connective tissue disease (20 sources) Tendinosis of right shoulder; Translations: [Other specified disorders of tendon, right shoulder] 04-03-2025 Episodic Other connective tissue disease (2 sources) Secondary rhabdomyolysis; Translations: [Rhabdomyolysis] 07-17-2025 Episodic Other gastrointestinal disorders (13 sources) Acute constipation; Translations: [Constipation, unspecified] 06-18-2024 [...] elsewhere classified] 11-22-2022 Chronic Other liver diseases (3 sources) Increased creatine kinase level; Translations: [Abnormal levels of other serum enzymes] 02-13-2025 Episodic Other liver diseases (2 sources) Abnormal levels of other serum enzymes; Translations: [Abnormal levels of other serum enzymes] Onset: 02-14-20 Episodic Other lower respiratory disease (20 sources) Hypoxia; Translations: [Hypoxemia] 02-24-2023 Episodic Other lower respiratory disease (3 sources) Hypoxemia; Translations: [Hypoxemia] 02-24-2023 Episodic Other lower respiratory disease (4 sources) Dyspnea; Translations: [Shortness of breath] Onset: 02-14-2002-13-2025 Episodic Other lower respiratory disease (20 sources) Hypoxemia; Translations: [Hypoxemia] 04-04-2025 Episodic Other lower respiratory disease (5 sources) Wheezing; Translations: [Wheezing] 06-17-2025 Episodic Other [...] hip pain] Episodic Other non-traumatic joint disorders (20 sources) Pain in right shoulder; Translations: [Right shoulder pain] Onset: 04-04-20 25 01-21-2025 Episodic Other non-traumatic joint disorders (1 [...] [Disorders of fatty acid oxidation] Onset: 06-26-20 22 Chronic Other nutritional; endocrine; and metabolic disorders (18 sources) Obesity; Translations: [Obesity, unspecified] 10-17-2023 Chronic Other nutritional; endocrine; and metabolic disorders (3 sources) Obesity, unspecified; Translations: [Obesity, unspecified] 10-17-2023 Chronic Other nutritional; endocrine; and metabolic disorders (4 sources) Morbid (severe) obesity due to excess calories; Translations: [Morbid obesity] 12-11-2023 Chronic Other nutritional; endocrine; and metabolic disorders (13 sources) Body mass index 40+ - severely obese; Translations: [Morbid (severe) obesity due to excess calories] 04-22-2024 Chronic Other nutritional; endocrine; and metabolic disorders (13 sources) Body mass index 30+ - obesity; Translations: [Obesity, unspecified] 10-16-2024 Chronic Other nutritional; endocrine; and metabolic disorders (20 sources) History of nutritional deficiency; Translations: [Personal history of other endocrine, nutritional and metabolic disease] 11-06-2022 Episodic Other screening for suspected conditions (not mental disorders or infectious disease) (13 sources) Abnormal findings on diagnostic imaging of other specified body structures; Translations: [Abnormal chest x-ray] 04-22-2024 Chronic Other screening for suspected conditions (not mental disorders or infectious disease) (20 sources) Electrocardiogram abnormal; Translations: [Patient encounter status] Onset: 07-22-20 Episodic Other upper respiratory disease (1 source) Chronic [...] sources) Pneumonia; Translations: [Pneumonia, unspecified organism] Onset: 02-14-2002-13-2025 Episodic Residual codes; unclassified (20 sources) Sleep apnea; Translations: [Sleep apnea, unspecified] Onset: 04-05-20 19 04-05-2019 Chronic Residual codes; unclassified (20 sources) Obstructive sleep apnea syndrome; Translations: [Obstructive sleep apnea (adult) (pediatric)] 11-22-2022 Chronic Comment on above: STOP-BANG is 6 Residual codes; unclassified (20 sources) Obstructive sleep apnea (adult) (pediatric); Translations: [Obstructive sleep apnea (adult)(pediatric)] Onset: 04-05-2012-01-2022 Chronic Residual codes; unclassified (20 sources) Insomnia; Translations: [Insomnia, unspecified] 01-13-2022 Episodic Residual codes; unclassified (2 sources) Localized edema; Translations: [Edema] 02-29-2024 Episodic Respiratory failure; insufficiency; arrest (adult) (20 sources) Chronic hypoxemic respiratory failure; Translations: [Chronic [...] ; Translations: [Nicotine dependence, cigarettes, uncomplicated] Onset: 06-17-20 25 02-24-2023 Chronic Comment on above: 1 pack/day x [...] sources) Rectal prolapse; Translations: [Rectal prolapse] Onset: 03-01-2022 Episodic Medical examination/evaluation (2 sources) Encounter for general adult medical examination without abnormal findings; Translations: [Encounter for general adult medical examination without abnormal findings] Onset: 01-12-2018 Episodic Mood disorders (3 sources) Mood disorders Onset: 02-18-2025 02-18-2025 Nausea and vomiting (17 sources) Nausea; Translations: [Nausea] Onset: 07-19-2022 Episodic Other aftercare (20 sources) Surgical follow-up; Translations: [Encounter for follow-up examination after completed treatment for conditions other than malignant neoplasm] Onset: 05-12-2017 05-12-2017 Episodic Other aftercare (2 sources) Encounter for follow-up examination after completed treatment for conditions other than malignant neoplasm; Translations: [Encounter for follow-up examination after completed treatment for conditions other than malignant neoplasm] Onset: 05-12-2017 Episodic Other and unspecified benign neoplasm (20 sources) History of polyp of colon; Translations: [Personal history of colonic polyps] Onset: 01-07-2022 01-07-2022 Episodic Other connective tissue disease (1 source) Bursitis; Translations: [Bursitis, unspecified site] Episodic Other connective tissue disease (1 source) Pain in right lower limb; Translations: [Right leg pain] Episodic Other connective tissue disease (17 sources) Non-traumatic rhabdomyolysis; Translations: [Rhabdomyolysis] Onset: 06-25-2022 Episodic Other connective tissue disease (17 sources) Muscle weakness; Translations: [Muscle weakness (generalized)] Onset: 11-14-2016 11-14-2016 Episodic Other connective tissue disease (3 sources) Myalgia, unspecified site; Translations: [Myalgia, unspecified site] Onset: 01-22-2025 Episodic Other connective tissue disease (1 source) Other specified disorders of tendon, right shoulder; Translations: [Other specified disorders of tendon, right shoulder] Onset: 04-04-2025 Episodic Other gastrointestinal disorders (18 sources) Diarrhea; Translations: [Diarrhea, unspecified] Onset: 06-21-2022 Episodic Other gastrointestinal disorders (2 sources) Diarrhea, unspecified; Translations: [Diarrhea, unspecified] Onset: 06-21-2022 Episodic Other nervous system disorders (1 source) Chronic pain syndrome; Translations: [Chronic pain syndrome] Episodic Other non-traumatic joint disorders (1 source) Other specified joint disorders, right shoulder; Translations: [Other specified joint disorders, right shoulder] Onset: 04-04-2025 Episodic Residual codes; unclassified (2 sources) H/O: surgery; Translations: [Surgery follow-up] Onset: 05-12-2017 05-12-2017 Episodic Residual codes; unclassified (6 sources) Insomnia, unspecified; Translations: [Insomnia, unspecified] Onset: 01-22-2025 Episodic Residual codes; unclassified (2 sources) Pain, unspecified; Translations: [Pain, unspecified] Onset: 05-18-2018 Episodic Respiratory failure; insufficiency; arrest (adult) (19 sources) Acute hypercapnic respiratory failure; Translations: [Acute respiratory failure with hypercapnia] Onset: 09-02-2024 09-02-2024 Episodic Skin and subcutaneous tissue infections (3 sources) Cellulitis of left knee; Translations: [Cellulitis of left lower limb] Onset: 09-02-2024 09-02-2024 Episodic Unclassified (20 sources) Pain; Translations: [Pain, unspecified] Onset: 05-18-2018 05-18-2018 Episodic Unclassified (2 sources) Other ventricular tachycardia; Translations: [Other ventricular tachycardia] Onset: 04-07-2025 Unclassified (2 sources) Ventricular tachycardia, unspecified; Translations: [Ventricular tachycardia, unspecified] Onset: 09-18-2024 Unclassified (1 source) Personal history of colon polyps, unspecified; Translations: [Personal history of colon polyps, unspecified] Onset: 09-21-2024 Results Test Name Value Interpretation Reference Range Facility Absolute lymphocyte countOrd ered By: Ramakrishna Maher on 07-17-2025 Lymphocytes Auto (Unsp spec) [#/Vol] 1.39 10*3/uL 0.83-4.51 [facility] [place] Absolute neutrophil countOrd ered By: Ramakrishnathong Maher on 07-17-2025 Neutrophils (Bld) [#/Vol] 5.6 10*3/uL 2.0-7.7 [facility] [place] Anion gap in Serum or Plasma Ordered By: Ramakrishnathong Maher on 07-17-2025 Anion gap [Moles/Vol] 9 mmol/L 5-15 [facility] Automated lymphocyte count a s percentage of total leukocytesOrdered By: Ramakrishna Maher on 07-17-2025 Lymphocytes/100 WBC Auto (Unsp spec) 18.0 % Low 19-41 [facility] [place] BUN/creatinine ratioOrdered By: Ramakrishnathong Maher on 07-17-2025 Urea nitrogen/Creatinine [Mass ratio] 11.9 mg/mg 10-20 [facility] [place] Basophil percentageOrdered B y: Ramakrishna Maher on 07-17-2025 Basophils/100 WBC (Bld) 1.0 % 0-1 [facility] Bilirubin, totalOrdered By: Ramakrishna Maher on 07-17-2025 Bilirubin [Mass/Vol] 0.20 mg/dL 0.00-1.30 [facility] Carbon dioxide, total [Moles /volume] in Central venous bloodOrdered By: Ramakrishna Maher on 07-17-2025 CO2 [Moles/Vol] 26.8 mmol/L 21.0-32.0 [facility] [place] Chloride assayOrdered By: Rhys thong Maher on 07-17-2025 Chloride [Moles/Vol] 94 mmol/L Low 98-108 [facility] Eosinophil percentageOrdered By: Ramakrishnathong Maher on 07-17-2025 Eosinophils/100 WBC (Bld) 1.6 % 0-5 [facility] [place] Erythrocyte distribution wid th ratioOrdered By: Ramakrishnathong Maher on 07-17-2025 Erythrocyte distribution width (RBC) [Ratio] 13.2 % 11.6-14.6 [facility] [place] Erythrocyte distribution wid th standard deviationOrdered By: Ramakrishna Maher on 07-17-2025 Erythrocyte distribution width (RBC) [Ratio] 41.0 fl 35.1-43.9 [facility] [place] Glomerular filtration rate ( GFR) estimation/1.73 sq m using serum, plasma, or whole bOrdered By: Ramakrishnathong Maher on 07-17-2025 GFR/1.73 sq M.predicted among non-blacks MDRD (S/P/Bld) [Vol rate/Area] 32 mL/min/{1.73_m2} Low >60 [facility] [place] Comment on above: mL/min/1.73m2 CKD-EP I Creatinine Equation (2020) Hematocrit Auto (Bld) [Volum e fraction]Ordered By: Ramakrishnathong Maher on 07-17-2025 Hematocrit (Bld) [Volume fraction] 35.4 % Low 37-47 [facility] [place] Hemoglobin measurementOrdere d By: Ramakrishna Maher on 07-17-2025 Hemoglobin (Bld) [Mass/Vol] 11.0 g/dL Low 12.0-15.0 [facility] [place] Immature granulocytes/100 WB C Auto (Bld)Ordered By: Ramakrishnathong Maher on 07-17-2025 Immature granulocytes/100 WBC (Bld) 0.300 % 0.0-0.9 [facility] [place] Comment on above: IG% - Immature Granu locytes (promyelocytes, myelocytes and metamyelocytes) > 1% indicates that a LEFT SHIFT is Present. Laboratory - Chemistry and C hemistry - challengeOrdered By: Ramakrishnathong Maher on 07-17-2025 AST [Catalytic activity/Vol] 35 U/L High <32 [facility] Comment on above: Hemolysis present, R esults could be affected. Lactic acid measurementOrder ed By: Ramakrishna Maher on 07-17-2025 Lactate [Moles/Vol] mmol/L 0.0-2.0 [facility] MCV (mean corpuscular volume ) determinationOrdered By: Ramakrishna Maher on 07-17-2025 MCV (RBC) [Entitic vol] 85.9 fL 81-99 [facility] Mean corpuscular hemoglobin (MCH) determinationOrdered By: Ramakrishnathong Maher on 07-17-2025 MCH (RBC) [Entitic mass] 26.7 pg Low 27.0-32.0 [facility] [place] Mean corpuscular hemoglobin concentration (MCHC) determinationOrdered By: Ramakrishnathong Maher on 07-17-2025 MCHC (RBC) [Mass/Vol] 31.1 g/dL Low 32-36 [facility] Mean platelet volume determi nationOrdered By: Ramakrishnathong Maher on 07-17-2025 Platelet mean volume (Bld) [Entitic vol] 10.1 fL 6.2-12.0 [facility] [place] Monocyte percentageOrdered B y: Ramakrishnathong Maher on 07-17-2025 Monocytes/100 WBC (Bld) 6.6 % 0-10 [facility] Neutrophil percentageOrdered By: Ramakrishnathong Maher on 07-17-2025 Neutrophils/100 WBC (Bld) 72.5 % High 47-70 [facility] [place] Nucleated red blood cell per centageOrdered By: Ramakrishnathong Maher on 07-17-2025 Nucleated RBC/100 WBC (Bld) [Ratio] 0 % 0-5 [facility] [place] Platelet countOrdered By: [facility] Maher on 07-17-2025 Platelets (Bld) [#/Vol] 254 10*3/uL 150-450 [facility] [place] Potassium measurement (mass/ volume)Ordered By: Ramakrishnathong Maher on 07-17-2025 Potassium (Unsp spec) [Mass/Vol] 5.9 mmol/L High 3.3-5.1 [facility] [place] Comment on above: Hemolysis present, R esults could be affected. RBC Auto (Bld) [#/Vol]Ordere d By: Ramakrishnathong Maher on 07-17-2025 RBC (Bld) [#/Vol] 4.12 10*6/uL Low 4.2-5.4 [facility] Serum creatinine measurement (mass/volume)Ordered By: Ramakrishna Maher on 07-17-2025 Creatinine [Mass/Vol] 1.73 mg/dL High 0.70-1.20 [facility] Serum globulin measurementOr dered By: Ramakrishna Maher on 07-17-2025 Globulin (S) [Mass/Vol] 3.2 g/dL 2.2-4.2 [facility] Serum glucose measurement (m ass/volume)Ordered By: Ramakrishna Maher on 07-17-2025 Glucose [Mass/Vol] 88 mg/dL 70-99 [facility] Serum or plasma alanine hester otransferase (ALT) measurementOrdered By: Ramakrishna Maher on 07-17-2025 ALT [Catalytic activity/Vol] 16 U/L <35 [facility] [place] Serum or plasma albumin marivel urement (mass/volume)Ordered By: Ramakrishna Maher on 07-17-2025 Albumin [Mass/Vol] 3.9 g/dL 3.4-4.8 [facility] Serum or plasma albumin/glob ulin mass ratioOrdered By: Ramakrishna Maher on 07-17-2025 Albumin/Globulin [Mass ratio] 1.2 {ratio} 0.9-2.4 [facility] [place] Serum or plasma alkaline wai sphatase measurementOrdered By: Ramakrishna Maher on 07-17-2025 ALP [Catalytic activity/Vol] 89 U/L 35-104 [facility] [place] Serum or plasma calcium marivel urement (mass/volume)Ordered By: Ramakrishna Maher on 07-17-2025 Calcium [Mass/Vol] 8.7 mg/dL 7.6-11.0 [facility] Serum or plasma creatine kin ase activityOrdered By: Ramakrishna Maher on 07-17-2025 CK [Catalytic activity/Vol] 401 U/L High 24-195 [facility] [place] Serum or plasma urea nitroge n measurement (mass/volume)Ordered By: Ramakrishna Maher on 07-17-2025 Urea nitrogen [Mass/Vol] 21 mg/dL High 4-19 [facility] [place] Sodium levelOrdered By: Ramakrishna Maher on 07-17-2025 Sodium [Moles/Vol] 130 mmol/L Low 133-145 [facility] Total proteinOrdered By: Ramakrishna Carsono on 07-17-2025 Protein [Mass/Vol] 7.1 g/dL 5.9-8.4 [facility] White blood cell (WBC) count Ordered By: Ramakrishna Carsono on 07-17-2025 WBC (Bld) [#/Vol] 7.7 10*3/uL 4.4-11.0 [facility] Absolute lymphocyte countOrd ered By: Mihaela Crewsruss on 06-26-2025 Lymphocytes Auto (Unsp spec) [#/Vol] 2.19 10*3/uL 0.83-4.51 [facility] [place] Absolute neutrophil countOrd ered By: Mihaela Eleonoraruss on 06-26-2025 Neutrophils (Bld) [#/Vol] 7.4 10*3/uL 2.0-7.7 [facility] [place] Automated lymphocyte count a s percentage of total leukocytesOrdered By: Mihaela Eleonoraruss on 06-26-2025 Lymphocytes/100 WBC Auto (Unsp spec) 21.1 % 19-41 [facility] [place] Basophil percentageOrdered B y: Mihaela Crewsruss on 06-26-2025 Basophils/100 WBC (Bld) 0.8 % 0-1 [facility] CBC W/Diff, Automatedon 06-07 Absolute Lymph 2.19 X10 3/uL Normal 0.83-4.51 [facility] [place] Comment on above: Performed By: #### L [id number], L506.1001, [id number], [id number], [id number], L100.0100 #### [facility] [place] Laboratory [address] [place], [address] Absolute Neut 7.4 X10 3/uL Normal 2.0-7.7 [facility] [place] Comment on above: Performed By: #### L [id number], L506.1001, [id number], L100.9950, L503.6550, L100.0100 #### [facility] [place] Laboratory [address] [place], [address] Basophils/100 WBC (Bld) 0.8 % Normal 0-1 [facility] Comment on above: Performed By: #### L [id number], L506.1001, [id number], L100.9950, [id number], L100.0100 #### [facility] [place] Laboratory [address] [place], [address] Eosinophils/100 WBC (Bld) 1.4 % Normal 0-5 [facility] [place] Comment on above: Performed By: #### L [id number], L506.1001, [id number], L100.9950, [id number], L100.0100 #### [facility] Laboratory [address] [place], [address] Erythrocyte distribution width (RBC) [Ratio] 13.9 % Normal 11.6-14.6 [facility] [place] Comment on above: Performed By: #### L [id number], L506.1001, [id number], L100.9950, L503.6550, L100.0100 #### [facility] [address] [place], [address] Hematocrit (Bld) [Volume fraction] 35.8 % Low 37-47 [facility] [place] Comment on above: Performed By: #### L [id number], L506.1001, [id number], L100.9950, L503.6550, L100.0100 #### [facility] Laboratory [address] [place], [address] Hemoglobin (Bld) [Mass/Vol] 11.1 g/dL Low 12.0-15.0 [facility] Comment on above: Performed By: #### L [id number], L506.1001, [id number], L100.9950, L503.6550, L100.0100 #### [facility] [address] [place], [address] IG% 0.300 Normal 0.0-0.9 [facility] [place] Comment on above: Result Comment: IG% - Immature Granulocytes (promyelocytes, myelocytes and metamyelocytes) > 1% indicates that a LEFT SHIFT is Present. Performed By: #### L [id number], L506.1001, L503.6030, L100.9950, L503.6550, L100.0100 #### [facility] [address] [place], [address] Lymphocytes/100 WBC (Bld) 21.1 % Normal 19-41 [facility] [place] Comment on above: Performed By: #### L [id number], L506.1001, [id number], L100.9950, L503.6550, L100.0100 #### [facility] Laboratory [address] [place], [address] MCH (RBC) [Entitic mass] 27.0 pg Normal 27.0-32.0 [facility] [place] Comment on above: Performed By: #### L [id number], L506.1001, [id number], L100.9950, L503.6550, L100.0100 #### [facility] [place] Laboratory [address] [place], [address] MCHC (RBC) [Mass/Vol] 31.0 g/dL Low 32-36 [facility] Comment on above: Performed By: #### L [id number], L506.1001, [id number], L100.9950, L503.6550, L100.0100 #### [facility] [place] Laboratory [address] [place], [address] MCV (RBC) [Entitic vol] 87.1 fL Normal 81-99 [facility] Comment on above: Performed By: #### L [id number], L506.1001, [id number], L100.9950, L503.6550, L100.0100 #### [facility] [address] [place], [address] Monocytes/100 WBC (Bld) 5.4 % Normal 0-10 [facility] Comment on above: Performed By: #### L [id number], [id number], [id number], L100.9950, [id number], L100.0100 #### [facility] Laboratory [address] [place], [address] Neutrophils/100 WBC (Bld) 71.0 % High 47-70 [facility] Comment on above: Performed By: #### L [id number], [id number], [id number], L100.9950, [id number], L100.0100 #### [facility] [address] [place], [address] Nucleated RBC (Bld) [#/Vol] 0 10*3/uL Normal 0-5 [facility] [facility] [place] Comment on above: Performed By: #### L 503.0106, L506.1001, L503.6030, L100.9950, L503.6550, L100.0100 #### [facility] [place] Laboratory [address] [place], [address] Platelet mean volume (Bld) [Entitic vol] 10.2 fL Normal 6.2-12.0 [facility] [place] Comment on above: Performed By: #### L 503.0106, L506.1001, L503.6030, L100.9950, L503.6550, L100.0100 #### [facility] [place] Laboratory [address] [place], [address] Platelets (Bld) [#/Vol] 332 10*3/uL Normal 150-450 [facility] [place] Comment on above: Performed By: #### L 503.0106, L506.1001, L503.6030, L100.9950, L503.6550, L100.0100 #### [facility] [place] Laboratory [address] [place], [address] RBC (Bld) [#/Vol] 4.11 10*6/uL Low 4.2-5.4 [facility] Comment on above: Performed By: #### L 503.0106, L506.1001, L503.6030, L100.9950, L503.6550, L100.0100 #### [facility] [place] Laboratory [address] [place], [address] RDW SD 44.4 fl High 35.1-43.9 [facility] [place] Comment on above: Performed By: #### L 503.0106, L506.1001, L503.6030, L100.9950, L503.6550, L100.0100 #### [facility] [place] Laboratory [address] [place], [address] WBC (Bld) [#/Vol] 10.4 10*3/uL Normal 4.4-11.0 [facility] Comment on above: Performed By: #### L 503.0106, L506.1001, L503.6030, L100.9950, L503.6550, L100.0100 #### [facility] [place] Laboratory [address] [place], [address] Eosinophil percentageOrdered By: Mihaela Simpson on 06-26-2025 Eosinophils/100 WBC (Bld) 1.4 % 0-5 [facility] [place] Erythrocyte distribution wid th ratioOrdered By: Mihaela Simpson on 06-26-2025 Erythrocyte distribution width (RBC) [Ratio] 13.9 % 11.6-14.6 [facility] [place] Erythrocyte distribution wid th standard deviationOrdered By: Mihaela Simpson on 06-26-2025 Erythrocyte distribution width (RBC) [Ratio] 44.4 fl High 35.1-43.9 [facility] [place] Ferritinon 06-26-2025 Ferritin [Mass/Vol] 150 ng/mL Normal 22-378 [facility] Comment on above: Performed By: #### L 503.0106, L506.1001, L503.6030, L100.9950, L503.6550, L100.0100 #### [facility] [place] Laboratory [address] [place], [address] Hematocrit Auto (Bld) [Volum e fraction]Ordered By: Mihaela Simpson on 06-26-2025 Hematocrit (Bld) [Volume fraction] 35.8 % Low 37-47 [facility] [place] Hemoglobin measurementOrdere d By: Mihaela Simpson on 06-26-2025 Hemoglobin (Bld) [Mass/Vol] 11.1 g/dL Low 12.0-15.0 [facility] [place] Immature granulocytes/100 WB C Auto (Bld)Ordered By: Mihaela Simpson on 06-26-2025 Immature granulocytes/100 WBC (Bld) 0.300 % 0.0-0.9 [facility] [place] Comment on above: IG% - Immature Granu locytes (promyelocytes, myelocytes and metamyelocytes) > 1% indicates that a LEFT SHIFT is Present. Internal Medicine Office Vis itogabriele 06-26-2025 Internal Medicine Office Visit [facility] [address] [place] [address] [place] [address] OFFICE VISIT Date of Service: 06/26/25 MR#: [id number] Acct: [id number] Name: RADHA SHAFER ANIL Rep #: [id number] : 1960 Provider: YNES riddle Age/Sex: 65/F [place] [facility] Status: Signed Intake Vital Signs 06/17/25 08:29 [...] 3 mg 3 ml inhalation Q4-6H PRN 05/2 5 06/26/25 Rx (2.5 mg base)/3 mL [...] Hypoxia Chronic diarrhea Recurrent falls Fatty liver FELIAS (obstructive sleep apnea) CKD (chronic kidney disease) stage 4, GFR 15-29 ml/min Acquired hypothyroidism History of vitamin D deficiency Peripheral arterial disease Vertigo Polyneuropathy Insomnia Carnitine palmitoyltransferase II deficiency Vision problems Thyroid cancer GERD (gastroesophageal reflux disease) Osteoarthritis Hypothyroid Neuropathy Kidney disease Hypertension History of emotional problems Chronic bronchitis Surgical History History of cholecystectomy Cataract ext (more content not included)... Normal [facility] [place] Iron measurement (mass/mass) Ordered By: Mihaela Simpson on 06-26-2025 Iron (Unsp spec) [Mass/Mass] 40 ug/dL Low 50-170 [facility] [place] Iron+Iron Binding Capacityon 06-26-2025 Iron [Mass/Vol] 40 ug/dL Low 50-170 [facility] [place] Comment on above: Performed By: #### L 503.0106, L506.1001, L503.6030, L100.9950, L503.6550, L100.0100 #### [facility] [place] Laboratory [address] [place], [address] IRON SATURATION 16.0 Normal 13-59 [facility] [place] Comment on above: Performed By: #### L 503.0106, L506.1001, L503.6030, L100.9950, L503.6550, L100.0100 #### [facility] [place] Laboratory [address] [place], [address] TIBC 256 ug/dL Normal 250-450 [facility] [place] Comment on above: Performed By: #### L 503.0106, L506.1001, L503.6030, L100.9950, L503.6550, L100.0100 #### [facility] [place] Laboratory [address] [place], [address] UIBC 216 ug/dL Low 228-428 [facility] [place] Comment on above: Performed By: #### L 503.0106, L506.1001, L503.6030, L100.9950, L503.6550, L100.0100 #### [facility] [place] Laboratory [address] [place], [address] MCV (mean corpuscular volume ) determinationOrdered By: Mihaela Simpson on 06-26-2025 MCV (RBC) [Entitic vol] 87.1 fL 81-99 [facility] Mean corpuscular hemoglobin (MCH) determinationOrdered By: Mihaela Simpson on 06-26-2025 MCH (RBC) [Entitic mass] 27.0 pg 27.0-32.0 [facility] [place] Mean corpuscular hemoglobin concentration (MCHC) determinationOrdered By: Mihaela Simpson on 06-26-2025 MCHC (RBC) [Mass/Vol] 31.0 g/dL Low 32-36 [facility] Mean platelet volume determi nationOrdered By: Mihaela Simpson on 06-26-2025 Platelet mean volume (Bld) [Entitic vol] 10.2 fL 6.2-12.0 [facility] [place] Monocyte percentageOrdered B y: Mihaela Simpson on 06-26-2025 Monocytes/100 WBC (Bld) 5.4 % 0-10 [facility] Neutrophil percentageOrdered By: Mihaela Simpson on 06-26-2025 Neutrophils/100 WBC (Bld) 71.0 % High 47-70 [facility] [place] No Panel InformationOrdered By: Mihaela Simpson on 06-26-2025 Unsaturated Iron Binding Capacity 216 ug/dL Low 228-428 [facility] [place] Nucleated red blood cell per centageOrdered By: Mihaela Simpson on 06-26-2025 Nucleated RBC/100 WBC (Bld) [Ratio] 0 % 0-5 [facility] [place] Platelet countOrdered By: Clifton Simpson on 06-26-2025 Platelets (Bld) [#/Vol] 332 10*3/uL 150-450 [facility] [place] RBC Auto (Bld) [#/Vol]Ordere d By: Mihaela Simpson on 06-26-2025 RBC (Bld) [#/Vol] 4.11 10*6/uL Low 4.2-5.4 [facility] Retic Panelon 06-26-2025 IM RET FRACTION 7.70 Normal 3.00-15.90 [facility] [place] Comment on above: Performed By: #### L 503.0106, L506.1001, L503.6030, L100.9950, L503.6550, L100.0100 #### [facility] [place] Laboratory [address] [place], [place], [address] RET-HE 27.3 pg Low 30-35 [facility] [place] Comment on above: Performed By: #### L 503.0106, L506.1001, L503.6030, L100.9950, L503.6550, L100.0100 #### [facility] [place] Laboratory [address] [place], [place], [id number] Retic Count 2.20 High 0.5-1.5 [facility] [place] Comment on above: Performed By: #### L 503.0106, L506.1001, L503.6030, L100.9950, L503.6550, L100.0100 #### [facility] [place] Laboratory [address] [place], [place], [id number] Reticulocyte hemoglobin equi valent (RET-He) measurementOrdered By: Mihaela Simpson on 06-26-2025 Hemoglobin (Reticulocytes) [Entitic mass] 27.3 pg Low 30-35 [facility] [place] Reticulocytes Auto (Bld) [#/ Vol]Ordered By: Mihaela Simpson on 06-26-2025 Reticulocytes/100 RBC (Bld) 2.20 % High 0.5-1.5 [facility] [place] Serum or plasma ferritin josé miguel surement (mass/volume)Ordered By: Mihaela Simpson on 06-26-2025 Ferritin [Mass/Vol] 150 ng/mL 22-378 [facility] Serum or plasma iron saturat ion measurement (mass fraction)Ordered By: Mihaela Simpson on 06-26-2025 Iron saturation [Mass fraction] 16.0 % 13-59 [facility] [place] Vitamin B12on 06-26-2025 Cobalamin (Vitamin B12) [Mass/Vol] 472 pg/mL Normal 180-914 [facility] [place] Comment on above: Performed By: #### L 503.0106, L506.1001, L503.6030, L100.9950, L503.6550, L100.0100 #### [facility] [place] Laboratory [address] [place], [place], [address] Vitamin B12 ser/plasOrdered By: Mihaela Simpson on 06-26-2025 Cobalamin (Vitamin B12) [Mass/Vol] 472 pg/mL 180-914 [facility] [place] Vitamin D,25 Hydroxyon 06-26 Vitamin D 25-OH 69.4 ng/mL Normal 30-100 [facility] [place] Comment on above: Result Comment: Shania min D Status Deficiency: <20 ng/mL (50nmol/L) Insufficiency: 20-30 ng/mL (50-75 nmol/L) Sufficiency: 30-100 ng/mL (75-250 nmol/L) Toxicity: >100 ng/mL (>250 nmol/L) Performed By: #### L 503.0106, L506.1001, L503.6030, L100.9950, L503.6550, L100.0100 #### [facility] [place] Laboratory [address] [place], [place], [address] White blood cell (WBC) count Ordered By: Mihaela Simpson on 06-26-2025 WBC (Bld) [#/Vol] 10.4 10*3/uL 4.4-11.0 [facility] Pulmonary Visit Reporton Pulmonary Visit Report [facility] [address] [place] [address] OFFICE VISIT Date of Service: 06/17/25 MR#: [id number] Acct: [id number] Name: RADHA SHAFER ANIL Rep #: [id number] : 1960 Provider: Colette Black NP Age/Sex: 65/F [place] [facility] Status: Signed Assessment and Plan Assessment and [...] for respiratory symptoms. The patient has a 12-omeq-pdhe smoking history, having quit completely in 2012. She is currently retired/disabled. 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 The patient utilizes supplemental oxygen at 4 [...] during th (more content not included)... Normal [facility] [place] Thyroidon 05-07-2025 Thyroid [facility] [address] [place], [place] [address] Thyroid MR#: [id number] Acct: [id number] Name: RADHA SHAFER Rep #: [id number] : 1960 F 65 From: Vaibhav Guevara MD PCP: Dr. Jennifer Gordon MD Status: REG CLI Study: Thyroid Date of Exam: 05/07/25 Exam# [id number] Ordering Dr: Jennifer Gordon MD PROCEDURE: THYROID, [...] abnormality of the thyroidectomy bed. Reading Location: [id number] CC: Dr. Jennifer Gordon MD Manager News: Signed Normal [facility] [place] ECG 12-LEADon 04-30-2025 ECG 12-LEAD Sinus Rhythm -Right atrial enlargement. BORDERLINE Normal [facility] No Panel Informationon 04-30 Sinus Rhythm -Right atrial enlargement. BORDERLINE [facility] Low Dose CT Lung Screeningon 04-17-[address] Lung Screening [facility] [address] [place] [address] Lung Screening MR#: [id number] Acct: [id number] Name: RADHA SHAFER Rep #: [id number] : 1960 F 65 From: Clarence gama MD PCP: Dr. Jennifer Gordon MD Status: REG CL Study: Low Dose CT Lung Screening Date of Exam: 04/17 Exam# [id number] Ordering Dr: Sasha Heredia GRAIN CLEANER GRAIN CLEANER-C PROCEDURE: LOW DOSE CT LUNG SCREENING 04/17/2025 REASON FOR EXAM: FORMER SMOKER TECHNIQUE: Low Dose CT Lung screening without contrast. Coronal and Sagittal reconstruction series were provided. One or more dose reduction techniques were used (e.g., Automated exposure control, adjustment of the mA and/or kV according to patient size, use of iterative reconstruction technique). REFERENCE LINK: [employer] Lung-RADS RADIATION DOSE SUMMARY: CTDlvol: 16.28 mGy [...] LDCT. Other Significant Findings: None. Reading Location: [id number] CC: YNES Heredia; Dr. Jennifer Gordon MD Manager News: Signed Normal [facility] [place] Absolute lymphocyte countOrd ered By: Jennifer Gordon on 2025 Lymphocytes Auto (Unsp spec) [#/Vol] 1.98 10*3/uL 0.83-4.51 [facility] [place] Absolute neutrophil countOrd ered By: Jennifer Gordon on 2025 Neutrophils (Bld) [#/Vol] 7.8 10*3/uL High 2.0-7.7 [facility] [place] Anion gap in Serum or Plasma Ordered By: Jennifer Godron on 2025 Anion gap [Moles/Vol] 10 mmol/L 5-15 [facility] Automated lymphocyte count a s percentage of total leukocytesOrdered By: Jennifer Gordon on 2025 Lymphocytes/100 WBC Auto (Unsp spec) 18.1 % Low 19-41 [facility] [place] BUN/creatinine ratioOrdered By: Jennifer Gordon on 2025 Urea nitrogen/Creatinine [Mass ratio] 13.9 mg/mg 10-20 [facility] [place] Basophil percentageOrdered B y: Jennifer Gordon on 2025 Basophils/100 WBC (Bld) 1.0 % 0-1 [facility] Bilirubin Test strip Ql (U)O rdered By: Jennifer Gordon on 2025 Bilirubin Ql (U) Negative Negative [facility] [place] Bilirubin, totalOrdered By: Jennifer Gordon on 2025 Bilirubin [Mass/Vol] 0.17 mg/dL 0.00-1.30 [facility] CBC W/Diff, Automatedon 04-06 Absolute Lymph 1.98 X10 3/uL Normal 0.83-4.51 [facility] [place] Comment on above: Performed By: #### L 503.0106, L506.1001, L503.6030, L100.9950, L503.6550, L100.0100 #### [facility] [place] Laboratory [address] [place], [address] Absolute Neut 7.8 X10 3/uL High 2.0-7.7 [facility] [place] Comment on above: Performed By: #### L 503.0106, L506.1001, L503.6030, L100.9950, L503.6550, L100.0100 #### [facility] [place] Laboratory [address] [place], [address] Basophils/100 WBC (Bld) 1.0 % Normal 0-1 [facility] Comment on above: Performed By: #### L 503.0106, L506.1001, L503.6030, L100.9950, L503.6550, L100.0100 #### [facility] [place] Laboratory [address] [place], [address] Eosinophils/100 WBC (Bld) 2.2 % Normal 0-5 [facility] [place] Comment on above: Performed By: #### L 503.0106, L506.1001, L503.6030, L100.9950, L503.6550, L100.0100 #### [facility] [place] Laboratory [address] [place], [address] Erythrocyte distribution width (RBC) [Ratio] 15.2 % High 11.6-14.6 [facility] [place] Comment on above: Performed By: #### L 503.0106, L506.1001, L503.6030, L100.9950, L503.6550, L100.0100 #### [facility] [place] [facility] [address] [place], [address] Hematocrit (Bld) [Volume fraction] 34.9 % Low 37-47 [facility] [place] Comment on above: Performed By: #### L 503.0106, L506.1001, L503.6030, L100.9950, L503.6550, L100.0100 #### [facility] [place] [facility] [address] [place], [address] Hemoglobin (Bld) [Mass/Vol] 10.5 g/dL Low 12.0-15.0 [facility] [place] Comment on above: Performed By: #### L 503.0106, L506.1001, L503.6030, L100.9950, L503.6550, L100.0100 #### [facility] [place] [facility] [address] [facility] [place], [address] IG% 0.500 Normal 0.0-0.9 [facility] [place] Comment on above: Result Comment: IG% - Immature Granulocytes (promyelocytes, myelocytes and metamyelocytes) > 1% indicates that a LEFT SHIFT is Present. Performed By: #### L 503.0106, L506.1001, L503.6030, L100.9950, L503.6550, L100.0100 #### [facility] [place] [facility] [address] [place], [address] Lymphocytes/100 WBC (Bld) 18.1 % Low 19-41 [facility] [place] Comment on above: Performed By: #### L 503.0106, L506.1001, L503.6030, L100.9950, L503.6550, L100.0100 #### [facility] [place] [facility] [address] [place], [address] MCH (RBC) [Entitic mass] 25.9 pg Low 27.0-32.0 [facility] [place] Comment on above: Performed By: #### L 503.0106, L506.1001, L503.6030, L100.9950, L503.6550, L100.0100 #### [facility] [place] [facility] [address] [place], [address] MCHC (RBC) [Mass/Vol] 30.1 g/dL Low 32-36 [facility] Comment on above: Performed By: #### L 503.0106, L506.1001, L503.6030, L100.9950, L503.6550, L100.0100 #### [facility] [place] [facility] [address] [place], [address] MCV (RBC) [Entitic vol] 86.2 fL Normal 81-99 [facility] Comment on above: Performed By: #### L 503.0106, L506.1001, L503.6030, L100.9950, L503.6550, L100.0100 #### [facility] [place] Laboratory [address] [place], [address] Monocytes/100 WBC (Bld) 7.0 % Normal 0-10 [facility] Comment on above: Performed By: #### L 503.0106, L506.1001, L503.6030, L100.9950, L503.6550, L100.0100 #### [facility] [place] [facility] [address] [place], [address] Neutrophils/100 WBC (Bld) 71.2 % High 47-70 [facility] [place] Comment on above: Performed By: #### L 503.0106, L506.1001, L503.6030, L100.9950, L503.6550, L100.0100 #### [facility] [place] [facility] [address] [place], [address] Nucleated RBC (Bld) [#/Vol] 0 10*3/uL Normal 0-5 [facility] [place] Comment on above: Performed By: #### L 503.0106, L506.1001, L503.6030, L100.9950, L503.6550, L100.0100 #### [facility] [place] [facility] [address] [place], [address] Platelet mean volume (Bld) [Entitic vol] 10.5 fL Normal 6.2-12.0 [facility] [place] Comment on above: Performed By: #### L 503.0106, L506.1001, L503.6030, L100.9950, L503.6550, L100.0100 #### [facility] [place] [facility] [address] [place], [address] Platelets (Bld) [#/Vol] 347 10*3/uL Normal 150-450 [facility] [place] Comment on above: Performed By: #### L 503.0106, L506.1001, L503.6030, L100.9950, L503.6550, L100.0100 #### [facility] [place] [facility] [address] [place], [address] RBC (Bld) [#/Vol] 4.05 10*6/uL Low 4.2-5.4 [facility] Comment on above: Performed By: #### L 503.0106, L506.1001, L503.6030, L100.9950, L503.6550, L100.0100 #### [facility] [place] [facility] [address] [place], [address] RDW SD 47.7 fl High 35.1-43.9 [facility] [place] Comment on above: Performed By: #### L 503.0106, L506.1001, L503.6030, L100.9950, L503.6550, L100.0100 #### [facility] [place] [facility] [address] [place], [address] WBC (Bld) [#/Vol] 10.9 10*3/uL Normal 4.4-11.0 [facility] Comment on above: Performed By: #### L 503.0106, L506.1001, L503.6030, L100.9950, L503.6550, L100.0100 #### [facility] [place] [facility] [address] [place], [place], [id number] ([phone]) Calculated very low density lipoprotein (VLDL) cholesterol measurementOrdered By: Jennifer [place] on 2025 Calculated very low density lipoprotein (VLDL) cholesterol measurement 32 mg/dL 5-40 [facility] [place] Carbon dioxide, total [Moles /volume] in Central venous bloodOrdered By: Jennifer [place] on 2025 CO2 [Moles/Vol] 29.0 mmol/L 21.0-32.0 [facility] [place] Chloride assayOrdered By: Al ycia [place] on 2025 Chloride [Moles/Vol] 97 mmol/L Low 98-108 [facility] Comprehensive Metabolic Prof ilon 2025 Albumin [Mass/Vol] 4.2 g/dL Normal 3.4-4.8 [facility] Comment on above: Performed By: #### L 503.0106, L506.1001, L503.6030, L100.9950, L503.6550, L100.0100 #### [facility] [place] [facility] [address] [place], [address] Albumin/Globulin [Mass ratio] 1.3 {ratio} Normal 0.9-2.4 [facility] [place] Comment on above: Performed By: #### L 503.0106, L506.1001, L503.6030, L100.9950, L503.6550, L100.0100 #### [facility] [place] [facility] [address] [place], [address] ALK PHOS 80 U/L Normal 35-104 [facility] [place] Comment on above: Performed By: #### L 503.0106, L506.1001, L503.6030, L100.9950, L503.6550, L100.0100 #### [facility] [place] [facility] [address] [place], [address] ALT [Catalytic activity/Vol] 27 U/L Normal <=34 [facility] [place] Comment on above: Performed By: #### L 503.0106, L506.1001, L503.6030, L100.9950, L503.6550, L100.0100 #### [facility] [facility] [place] [facility] [address] [place], [address] AST [Catalytic activity/Vol] 27 U/L Normal <=31 [facility] [place] Comment on above: Performed By: #### L 503.0106, L506.1001, L503.6030, L100.9950, L503.6550, L100.0100 #### [facility] [place] [facility] [address] [place], [address] Bilirubin [Mass/Vol] 0.17 mg/dL Normal 0.00-1.30 [facility] Comment on above: Performed By: #### L 503.0106, L506.1001, L503.6030, L100.9950, L503.6550, L100.0100 #### [facility] [place] [facility] [address] [place], [address] BUN/CRE 13.9 RATIO Normal 10-20 [facility] [place] Comment on above: Performed By: #### L 503.0106, L506.1001, L503.6030, L100.9950, L503.6550, L100.0100 #### [facility] [place] [facility] [address] [place], [address] Calcium [Mass/Vol] 9.5 mg/dL Normal 7.6-11.0 [facility] Comment on above: Performed By: #### L 503.0106, L506.1001, L503.6030, L100.9950, L503.6550, L100.0100 #### [facility] [place] [facility] [address] [place], [address] Chloride [Moles/Vol] 97 mmol/L Low 98-108 [facility] Comment on above: Performed By: #### L 503.0106, L506.1001, L503.6030, L100.9950, L503.6550, L100.0100 #### [facility] [place] [facility] [address] [place], [address] CO2 [Moles/Vol] 29.0 mmol/L Normal 21.0-32.0 [facility] [place] Comment on above: Performed By: #### L 503.0106, L506.1001, L503.6030, L100.9950, L503.6550, L100.0100 #### [facility] [place] [facility] [address] [place], [address] Creatinine [Mass/Vol] 1.47 mg/dL High 0.70-1.20 [facility] Comment on above: Performed By: #### L 503.0106, L506.1001, L503.6030, L100.9950, L503.6550, L100.0100 #### [facility] [place] [facility] [address] [place], [address] GAP 10 Normal 5-15 [facility] [place] Comment on above: Performed By: #### L 503.0106, L506.1001, L503.6030, L100.9950, L503.6550, L100.0100 #### [facility] [place] [facility] [address] [place], [address] GFR/1.73 sq M.predicted among non-blacks MDRD (S/P/Bld) [Vol rate/Area] 39 mL/min/{1.73_m2} Low >60 [facility] [place] Comment on above: Result Comment: mL/m in/1.73m2 CKD-EPI Creatinine Equation (2021) Performed By: #### L 503.0106, L506.1001, L503.6030, L100.9950, L503.6550, L100.0100 #### [facility] [place] [facility] [address] [place], [address] Globulin (S) [Mass/Vol] 3.3 g/dL Normal 2.2-4.2 [facility] Comment on above: Performed By: #### L 503.0106, L506.1001, L503.6030, L100.9950, L503.6550, L100.0100 #### [facility] [address] [place], [address] Glucose [Mass/Vol] 98 mg/dL Normal 70-99 [facility] Comment on above: Performed By: #### L 503.0106, L506.1001, L503.6030, L100.9950, L503.6550, L100.0100 #### [facility] [place] [address] [place], [address] Potassium [Moles/Vol] 5.6 mmol/L High 3.3-5.1 [facility] Comment on above: Performed By: #### L 503.0106, L506.1001, L503.6030, L100.9950, L503.6550, L100.0100 #### [facility] [place] [facility] [address] [place], [address] Sodium [Moles/Vol] 135 mmol/L Normal 133-145 [facility] Comment on above: Performed By: #### L 503.0106, L506.1001, L503.6030, L100.9950, L503.6550, L100.0100 #### [facility] [place] [facility] [address] [place], [address] T PROT 7.5 g/dL Normal 5.9-8.4 [facility] [place] Comment on above: Performed By: #### L 503.0106, L506.1001, L503.6030, L100.9950, L503.6550, L100.0100 #### [facility] [place] [facility] [address] [place], [place], [id number] Urea nitrogen [Mass/Vol] 20 mg/dL High 4-19 [facility] [place] Comment on above: Performed By: #### L 503.0106, L506.1001, L503.6030, L100.9950, L503.6550, L100.0100 #### [facility] [place] [facility] [address] [place], [place], [address] Eosinophil percentageOrdered By: Jennifer Gordon on 2025 Eosinophils/100 WBC (Bld) 2.2 % 0-5 [facility] [place] Erythrocyte distribution wid th ratioOrdered By: Jennifer Gordon on 2025 Erythrocyte distribution width (RBC) [Ratio] 15.2 % High 11.6-14.6 [facility] [place] Erythrocyte distribution wid th standard deviationOrdered By: Jennifer Gordon on 2025 Erythrocyte distribution width (RBC) [Ratio] 47.7 fl High 35.1-43.9 [facility] [place] Glomerular filtration rate ( GFR) estimation/1.73 sq m using serum, plasma, or whole bOrdered By: Jennifer Gordon on 2025 GFR/1.73 sq M.predicted among non-blacks MDRD (S/P/Bld) [Vol rate/Area] 39 mL/min/{1.73_m2} Low >60 [facility] [place] Comment on above: mL/min/1.73m2 CKD-EP I Creatinine Equation (2020) Hematocrit Auto (Bld) [Volum e fraction]Ordered By: Jennifer Gordon on 2025 Hematocrit (Bld) [Volume fraction] 34.9 % Low 37-47 [facility] [place] Hemoglobin A1con 2025 HbA1c (Bld) [Mass fraction] 5.7 % Normal <=5.6 [facility] [place] Comment on above: Result Comment: Norm al < 5.7 % Prediabetic 5.7 - 6.4 % Diabetic >or= 6.5 % Please note range changes. Performed By: #### L 503.0106, L506.1001, L503.6030, L100.9950, L503.6550, L100.0100 #### [facility] [place] [address] [place], [address] Hemoglobin A1c percentageOrd ered By: Jennifer Gordon on 2025 HbA1c (Bld) [Mass fraction] 5.7 % <5.7 [facility] [place] Comment on above: Normal < 5.7 % Predi abetic 5.7 - 6.4 % Diabetic >or= 6.5 % Please note range changes. Hemoglobin measurementOrdere d By: Jennifer Gordon on 2025 Hemoglobin (Bld) [Mass/Vol] 10.5 g/dL Low 12.0-15.0 [facility] [place] Immature granulocytes/100 WB C Auto (Bld)Ordered By: Jennifer Gordon on 2025 Immature granulocytes/100 WBC (Bld) 0.500 % 0.0-0.9 [facility] [place] Comment on above: IG% - Immature Granu locytes (promyelocytes, myelocytes and metamyelocytes) > 1% indicates that a LEFT SHIFT is Present. Ketones Test strip Ql (U)Ord ered By: Jennifer Gordon on 2025 Ketones Ql (U) Negative Negative [facility] LDL calc ser/plasOrdered By: Jennifer Gordon on 2025 Cholesterol in LDL [Mass/Vol] 137 mg/dL [facility] [place] Comment on above: Xjbyfcbttx=968-489 m g/dL & Higher Sylr=121 mg/dL or greater Laboratory - Chemistry and C hemistry - challengeOrdered By: Jennifer Gordon on 2025 AST [Catalytic activity/Vol] 27 U/L <32 [facility] [place] Lipid Profileon 2025 CHOL:HDL 4.76 Normal [facility] Comment on above: Performed By: #### L 503.0106, L506.1001, L503.6030, L100.9950, L503.6550, L100.0100 #### [facility] [place] [facility] [address] [place], [address] Cholesterol [Mass/Vol] 214 mg/dL High <=200 [facility] Comment on above: Result Comment: Chol esterol level, Desirable <200 mg/dL Borderline high cholesterol 200-239 mg/dL High cholesterol >=240 mg/dL Recommendations of the NCEP Adult Treatment Panel for the following risk-cutoff thresholds for the [place] population. Performed By: #### L 503.0106, L506.1001, L503.6030, L100.9950, L503.6550, L100.0100 #### [facility] [address] [place], [address] Cholesterol in HDL [Mass/Vol] 45 mg/dL Normal [facility] Comment on above: Result Comment: Vibha onal Cholesterol Education Program (NCEP) guidelines: <40 mg/dL: Low HDL-cholesterol (major risk factor for CHD) >= 60 mg/dL: High HDL-cholesterol (negative risk factor for CHD) HDL-cholesterol is affected by a number of factors, e.g. smoking, exercise, hormones, sex and age. Performed By: #### L 503.0106, L506.1001, L503.6030, L100.9950, L503.6550, L100.0100 #### [facility] [place] [facility] [address] [place], [address] Cholesterol in LDL [Mass/Vol] 137 mg/dL Normal [facility] [place] Comment on above: Result Comment: Bord yhqncz=021-635 mg/dL Higher Epbi=553 mg/dL or greater Performed By: #### L 503.0106, L506.1001, L503.6030, L100.9950, L503.6550, L100.0100 #### [facility] [place] [facility] [address] [place], [address] Cholesterol in VLDL [Mass/Vol] 32 mg/dL Normal 5-40 [facility] [place] Comment on above: Performed By: #### L 503.0106, L506.1001, L503.6030, L100.9950, L503.6550, L100.0100 #### [facility] [place] [facility] [address] [facility] [place], [place], [id number] Triglyceride [Mass/Vol] 160 mg/dL Normal [facility] Comment on above: Result Comment: The drugs N-Acetylcysteine and Metamizole may falsely depress this assay. Normal range: <150 mg/dL Borderline High: 150-199 mg/dL High: 200-499 mg/dL Very High: >500 mg/dL Performed By: #### L 503.0106, L506.1001, L503.6030, L100.9950, L503.6550, L100.0100 #### [facility] [address] [place], [place], [id number] MCV (mean corpuscular volume ) determinationOrdered By: Jennifer Gordon on 2025 MCV (RBC) [Entitic vol] 86.2 fL 81-99 [facility] Mean corpuscular hemoglobin (MCH) determinationOrdered By: Jennifer Gordon on 2025 MCH (RBC) [Entitic mass] 25.9 pg Low 27.0-32.0 [facility] [place] Mean corpuscular hemoglobin concentration (MCHC) determinationOrdered By: Jennifer Gordon on 2025 MCHC (RBC) [Mass/Vol] 30.1 g/dL Low 32-36 [facility] Mean platelet volume determi nationOrdered By: Jennifer Gordon on 2025 Platelet mean volume (Bld) [Entitic vol] 10.5 fL 6.2-12.0 [facility] [place] Microscopic analysis of urin e for red blood cells (RBC)Ordered By: Jennifer Gordon on 2025 Microscopic analysis of urine for red blood cells (RBC) 0-5 SEEN /hpf 0-5 [facility] Monocyte percentageOrdered B y: Jennifer Gordon on 2025 Monocytes/100 WBC (Bld) 7.0 % 0-10 [facility] Mucus LM Ql (Urine sed)Order ed By: Jennifer Gordon on 2025 Mucus Ql (Urine sed) 0 SEEN /hpf [facility] Neutrophil percentageOrdered By: Jennifer Gordon on 2025 Neutrophils/100 WBC (Bld) 71.2 % High 47-70 [facility] Nitrite Test strip Ql (U)Ord ered By: Jennifer Gordon on 2025 Nitrite Ql (U) Negative Negative [facility] [place] Nucleated red blood cell per centageOrdered By: Jennifer Gordon on 2025 Nucleated RBC/100 WBC (Bld) [Ratio] 0 % 0-5 [facility] [place] Platelet countOrdered By: Felipe Gordon on 2025 Platelets (Bld) [#/Vol] 347 10*3/uL 150-450 [facility] [place] Potassium measurement (mass/ volume)Ordered By: Jennifer Gordon on 2025 Potassium (Unsp spec) [Mass/Vol] 5.6 mmol/L High 3.3-5.1 [facility] Protein Test strip Ql (U)Ord ered By: Jennifer Gordon on 2025 Protein Ql (U) 100 mg/dl High Negative [facility] [place] RBC Auto (Bld) [#/Vol]Ordere d By: Jennifer Gordon on 2025 RBC (Bld) [#/Vol] 4.05 10*6/uL Low 4.2-5.4 [facility] Screening total cholesterol/ high density lipoprotein (HDL) cholesterol ratioOrdered By: Jennifer oGrdon on 2025 Cholesterol.total/Camille sterol in HDL [Mass ratio] 4.76 {ratio} [facility] Serum creatinine measurement (mass/volume)Ordered By: Jennifer Gordon on 2025 Creatinine [Mass/Vol] 1.47 mg/dL High 0.70-1.20 [facility] Serum globulin measurementOr dered By: Jeninfer Gordon on 06-11-2025 Globulin (S) [Mass/Vol] 3.3 g/dL 2.2-4.2 [facility] Serum glucose measurement (m ass/volume)Ordered By: Jennifer Gordon on 2025 Glucose [Mass/Vol] 98 mg/dL 70-99 [facility] Serum or plasma alanine hester otransferase (ALT) measurementOrdered By: Jennifer Gordon on 2025 ALT [Catalytic activity/Vol] 27 U/L <35 [facility] [place] Serum or plasma albumin marivel urement (mass/volume)Ordered By: Jennifer Gordon on 2025 Albumin [Mass/Vol] 4.2 g/dL 3.4-4.8 [facility] Serum or plasma albumin/glob ulin mass ratioOrdered By: Jennifer Gordon on 2025 Albumin/Globulin [Mass ratio] 1.3 {ratio} 0.9-2.4 [facility] [place] Serum or plasma alkaline wai sphatase measurementOrdered By: Jennifer Gordon on 2025 ALP [Catalytic activity/Vol] 80 U/L 35-104 [facility] [place] Serum or plasma calcium marivel urement (mass/volume)Ordered By: Jennifer Gordon on 2025 Calcium [Mass/Vol] 9.5 mg/dL 7.6-11.0 [facility] Serum or plasma cholesterol in HDL measurement (mass/volume)Ordered By: Jennifer Gordon on 2025 Cholesterol in HDL [Mass/Vol] 45 mg/dL >40 [facility] [place] Comment on above: National Cholesterol Education Program (NCEP) guidelines:<40 mg/dL: Low HDL-cholesterol (major risk factor for CHD)>= 60 mg/dL: High HDL-cholesterol (negative risk factor for CHD)HDL-cholesterol is affected by a number of factors, e.g. smoking, exercise, hormones, sex and age. Serum or plasma cholesterol measurement (mass/volume)Ordered By: Jennifer Gordon on 2025 Cholesterol [Mass/Vol] 214 mg/dL High <201 [facility] Comment on above: Cholesterol level, D esirable <200 mg/dLBorderline high cholesterol 200-239 mg/dLHigh cholesterol >=240 mg/dLRecommendations of the NCEP Adult Treatment Panel for the following risk-cutoff thresholds for the [place] population. Serum or plasma urea nitroge n measurement (mass/volume)Ordered By: Jennifer Gordon on 2025 Urea nitrogen [Mass/Vol] 20 mg/dL High 4-19 [facility] Sodium levelOrdered By: Ashley Gordon on 2025 Sodium [Moles/Vol] 135 mmol/L 133-145 [facility] Squamous epithelial cells de tection in urine sediment by light microscopyOrdered By: Jennifer Gordon on 2025 Epithelial cells.squamous LM Ql (Urine sed) 0-5 SEEN /hpf - [facility] TSH DL <= 0.005 mIU/L QnOrde red By: Jennifer Gordon on 2025 TSH Qn 0.566 uIU/mL 0.300-4.200 [facility] [place] Thyroid Stim Hormone (TSH)on 2025 TSH 0.566 uIU/mL Normal 0.300-4.200 [facility] [place] Comment on above: Performed By: #### L 503.0106, L506.1001, L503.6030, L100.9950, L503.6550, L100.0100 #### [facility] [address] [place], [address] Total proteinOrdered By: Amadou Gordon on 2025 Protein [Mass/Vol] 7.5 g/dL 5.9-8.4 [facility] Triglycerides measurementOrd ered By: Jennifer Gordon on 2025 Triglyceride [Mass/Vol] 160 mg/dL <199 [facility] Comment on above: The drugs N-Acetylcy steine and Metamizole may falsely depress this assay. Normal range: <150 mg/dLBorderline High: 150-199 mg/dLHigh: 200-499 mg/dLVery High: >500 mg/dL Urinalysis, Completeon 04-16 EPI,SQUAMOUS 0-5 SEEN Normal 5- [facility] [place] Comment on above: Order Comment: COLLE CTOR TO SPECIFY Performed By: #### L 503.0106, L506.1001, L503.6030, L100.9950, L503.6550, L100.0100 #### [facility] [facility] [address] [place], [address] RBC 0-5 SEEN Normal 0-5 [facility] Comment on above: Order Comment: COLLE CTOR TO SPECIFY Performed By: #### L 503.0106, L506.1001, L503.6030, L100.9950, L503.6550, L100.0100 #### [facility] [place] [facility] [address] [place], [address] WBC 0-5 SEEN Normal 0-5 [facility] Comment on above: Order Comment: [facility] CTOR TO SPECIFY Performed By: #### L 503.0106, L506.1001, L503.6030, L100.9950, L503.6550, L100.0100 #### [facility] [place] [facility] [address] [place], [address] BACTERIA 0 SEEN Normal None Seen [facility] Comment on above: Order Comment: COLLE CTOR TO SPECIFY Performed By: #### L 503.0106, L506.1001, L503.6030, L100.9950, L503.6550, L100.0100 #### [facility] [place] [facility] [address] [place], [address] Mucus Ql (Urine sed) 0 SEEN Normal [facility] Comment on above: Order Comment: COLLE CTOR TO SPECIFY Performed By: #### L 503.0106, L506.1001, L503.6030, L100.9950, L503.6550, L100.0100 #### [facility] [address] [place], [address] Urine clarityOrdered By: Amadou Gordon on 2025 Clarity (U) Clear Clear [facility] Urine color determinationOrd ered By: Jennifer Gordon on 2025 Color (U) Straw Yellow [facility] Urine glucose detectionOrder ed By: Jennifer Gordon on 2025 Glucose Ql (U) Normal mg/dl Normal [facility] Urine leukocyte esterase det ection by dipstickOrdered By: Jennifer Gordon on 2025 Leukocyte esterase Test strip Ql (U) Negative Negative [facility] Urine pHOrdered By: Jennifer Beauchamp indmo on 2025 pH (U) 6.5 [pH] 5.0 - 8.0 [facility] Urine sediment bacteria coun t by microscopy (number/high power field)Ordered By: Jennifer Gordon on 2025 Bacteria LM.HPF (Urine sed) [#/Area] 0 /[HPF] None Seen [facility] Urine specific gravity measu rementOrdered By: Jennifer Gordon on 2025 Specific gravity (U) [Rel density] 1.010 1.002-1.030 [facility] Urine urobilinogen measureme ntOrdered By: Jennifer Gordon on 2025 Urobilinogen Ql (U) Normal mg/dl Normal [facility] White blood cell (WBC) count Ordered By: Jennifer Gordon on 2025 WBC (Bld) [#/Vol] 10.9 10*3/uL 4.4-11.0 [facility] White blood cell countOrdere d By: Jennifer Gordon on 2025 White blood cell count 0-5 SEEN /hpf 0-5 [facility] Internal Medicine Office Vis itogabriele 04-15-2025 Internal Medicine Office Visit [facility] [address] [place], [place] [address] OFFICE VISIT Date of Service: 04/16/25 MR#: [id number] Acct: [id number] Name: RADHA HSAFER ANIL Rep #: [id number] : 1960 Provider: Dr. Jennifer villanueva MD Age/Sex: 64/F [place] [facility] Status: Signed Intake Vital Signs 10/16/24 13:23 [...] lpm Intake Visit Reasons: 6 M FU Ad Setter Required: No Is patient in pain?: No [...] mg 3 ml inhalation Q4-6H PRN 5 04/16/25 Rx (2.5 mg base)/3 mL [...] year?: No Nurse's Note: needs everything refilled. [facility] Medical History Arthrosis of right acromioclavicular joint [...] History of (more content not included)... Normal [facility] MR CARDIAC MORPHOLOGY WITH A ND WITHOUT CONTRAST WITHOUT VELOCITY FLOWon 04-07-2025 MR CARDIAC MORPHOLOGY WITH AND WITHOUT CONTRAST WITHOUT VELOCITY FLOW [facility] CMR Report Name: RADHA SHAFER Eli : Scan Date: Electronically signed by Eleonora Sawyer 15:38:37 VITALS ====== ======== HEIGHT: 63 in [...] None Karishma (more content not included)... Normal [facility] Comment on above: Order Comment: Injur y/Trauma or Illness?:Illness/Other How long have you had these symptoms (acute/chronic)?:Chronic Reason for exam?:A-fib [facility] TO READ Type of Exam?:Initial Additional signs and symptoms?:n [facility]OC [facility] Creatinine [Mass/Vol] 1.5 mg/dL High 0.6-1.[address] [facility] Comment on above: Performed By: #### L [id number] #### [facility] [address] [place], [place] [address] Maurice Coello M.D. [id number] Pulmonary Visit Reporton Pulmonary Visit Report [facility] [place] [address] [place] [address] OFFICE VISIT Date of Service: 04/04/25 MR#: [id number] Acct: [id number] Name: RADHA HSAFER Rep #: [id number] : 1960 Provider: Colette Black NP Age/Sex: 64/F Location: [facility] Status: Signed Assessment and Plan Assessment and [...] - Chronic obstructive pulmonary disease, unspecified Refilled qketywctzpi-bajwykseh-d ilanter 200-62.5-25 mcg (Trelegy Ellipta) 1 inh [...] exacerbation. This has not been documented in [facility]. Patient does report that she has been to the [facility] system as well. The patient has a 68-bvrm-mvmn smoking history, having quit completely in 2012. She is currently retired/disabled. 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 She was previously followed by an outside robotics technologist presented to our office on a stable [...] 99 1 (more content not included)... Normal [facility] Orthopedic Visit Reporton Orthopedic Visit Report [facility] [address] [place] [address] OFFICE VISIT Date of Service: 04/03/25 MR#: [id number] Acct: [id number] Name: RADHA SHAFER Rep #: [id number] : 1960 Provider: Dr. Cary shah MD Age/Sex: 64/F Location[place] [facility] Status: Signed with Addenda ADDENDUM by QI [...] Performing Provider: Cary Jacobsen MD Performing Location: [facility] [facility] Administered by: Cary Jacobsen MD on 04/03/25 14:17 Dose Route Admin Location Dispensed Lot Number Expiration Date NDJohn Valenzuela ufacturer 40 mg intra-articular Right shoulder 1 mL [id number] 06/06/27 3637-8544-15 [facility] Date cc: * Signed [...] ???Confirmed ???Type Disability Placard #1 ea 02/07/23 04/03/25 Rx aspirin 81 [...] the past year?: Yes PFSH Medical History Arthrosis of right acromioclavicular [...] Acquired hypothyroidism (more content not included)... Normal [facility] Neurology Visit Reporton Neurology Visit Report [facility] [address], [address] [place], [place] [address] OFFICE VISIT Date of Service: 03/27/25 MR#: [id number] Acct: [id number] Name: RADHA SHAFER Rep #: [id number] : 1960 Provider: Dr. Rusty ayers MD Age/Sex: 64/F [place] [facility] [place]: Signed HPI HPI Chief Complaint: Details: Interim History: Radha returns for follow-up visit. She has stage III/IV chronic renal insufficiency, left-sided facial shingles (2020), sleep apnea (she uses supplemental oxygen; she no longer uses CPAP), and hypothyroidism. She sees a drama therapist. She had a left knee replacement in 2008. She has chronic low back pain. She saw a paint prep technician, Dr. Mancini, in 2017 and had lumbar [...] well- tolerated; she sees a physician at [facility] in [place]. Dojolvi was discontinued due to a side [...] takes doxepin for insomnia. She saw a inspector technician in 2018 for right foot pain and [...] did not tolerate CPAP). She saw a bead wire insulator, Dr. Forde, for her positive Bence-Davila protein [...] BUN, creatinine (more content not included)... Normal [facility] L/S Spine Min 4 Viewson 02-05 L/S Spine Min 4 Views [facility] [address] [place], [place] [address] L/S Spine Min 4 Views MR#: [id number] Acct: [id number] Name: RADHA SHAFER Rep #: [id number] : 1960 F 64 From: Benjamin Mendoza MD PCP: Dr. Jennifer Gordon MD Status: DEP AMB Study: L/S Spine Min 4 Views Date of Exam: 02/27/25 Exam# [id number] Ordering Dr: Hui Whitehead PROCEDURE: L/S SPINE [...] degenerative disc disease. No instability. Reading Location: [id number] CC: DANIEL Archer; Dr. Jennifer Gordon MD Manager News: Signed Normal [facility] Orthopedic Visit Reporton Orthopedic Visit Report [facility] [facility] [address] [place] [address] OFFICE VISIT Date of Service: 02/27/25 MR#: [id number] Acct: [id number] Name: RADHA SHAFER Rep #: [id number] : 1960 Provider: DANIEL Archer Age/Sex: 64/F Location: [facility] Status: Signed Intake Vital Signs 01/06/25 10:18 [...] SPINE D (more content not included)... Normal [facility] Upper Ext Joint Only(Routine )on 02-25-2025 Upper Ext Joint Only(Routine) [facility] [address] [place] [address] Upper Ext Joint Only(Routine) MR#: [id number] Acct: [id number] Name: RADHA SHAFER Rep #: [id number] : 1960 F 64 From: Benjamin Mendoza MD PCP: Dr. Jennifer Gordon MD Status: REG CLI Study: Upper Ext Joint Only(Routine) Date of Exam: 0 02/25/25 Exam# [id number] Ordering Dr: Cary Jacobsen MD EXAM: MRI [...] effusion. Mild acromioclavicular joint arthrosis. Reading Location: [facility] CC: Dr. Jennifer Gordon MD; Dr. Cary Jacobsen MD Manager News: Signed Normal [facility] BASIC METABOLIC PANELon 04-1 5-2025 Anion gap [Moles/Vol] 16 mmol/L Normal 10-[address] [facility] Comment on above: Order Comment: [facility] has implemented the eGFR calculation approach that does not have a coefficient for race that conforms to the NKF-ASN Task Force Recommendations. Performed By: #### 4 6124 #### LAB [address] [place], [place] [address] Maurice Coello M.D. [id number] Calcium [Mass/Vol] 9.1 mg/dL Normal 8.4-10.2 [facility] Comment on above: Order Comment: [facility] has implemented the eGFR calculation approach that does not have a coefficient for race that conforms to the NKF-ASN Task Force Recommendations. Performed By: #### 4 6124 #### LAB [address] [place] [id number] Maurice Coello M.D. [id number] Chloride [Moles/Vol] 99 mmol/L Normal 98-108 [facility] Comment on above: Order Comment: [facility] has implemented the eGFR calculation approach that does not have a coefficient for race that conforms to the NKF-ASN Task Force Recommendations. Performed By: #### 4 6124 #### LAB [address] [place] [id number] Maurice Coello M.D. [id number] Creatinine [Mass/Vol] 1.70 mg/dL High 0.60-1.[address] [facility] Comment on above: Order Comment: [facility] has implemented the eGFR calculation approach that does not have a coefficient for race that conforms to the NKF-ASN Task Force Recommendations. Performed By: #### 4 6124 #### LAB [address] [place], [place] [address] Maurice Coello M.D. [id number] EGFR 33 mL/min/1.73 m2 Low >=60 [facility] Comment on above: Order Comment: [facility] has implemented the eGFR calculation approach that does not have a coefficient for race that conforms to the NKF-ASN Task Force Recommendations. Result Comment: Ericka mated GFR was calculated using the 2020 CKD-EPI creatinine equation. Performed By: #### 4 [id number] #### LAB [address] [place] [address] Maurice Coello M.D. [id number] Glucose [Mass/Vol] 119 mg/dL High 65-99 [facility] Comment on above: Order Comment: [facility] has implemented the eGFR calculation approach that does not have a coefficient for race that conforms to the NKF-ASN Task Force Recommendations. Performed By: #### 4 6124 ####[facility] LAB [address] [place] [address] Maurice Coello M.D. [id number] HCO3 (Bld) [Moles/Vol] 26 mmol/L Normal 21-32 [facility] Comment on above: Order Comment: [facility] has implemented the eGFR calculation approach that does not have a coefficient for race that conforms to the NKF-ASN Task Force Recommendations. Performed By: #### 4 6124 #### LAB [address] [place] [address] Maurice Coello M.D. [id number] Potassium [Moles/Vol] 3.8 mmol/L Normal 3.5-5.[address] [facility] Comment on above: Order Comment: [facility] has implemented the eGFR calculation approach that does not have a coefficient for race that conforms to the NKF-ASN Task Force Recommendations. Performed By: #### 4 6124 ####[facility] LAB [address] [place] [address] Maurice Coello M.D. [id number] Sodium [Moles/Vol] 137 mmol/L Normal 135-145 [facility] Comment on above: Order Comment: [facility] has implemented the eGFR calculation approach that does not have a coefficient for race that conforms to the NKF-ASN Task Force Recommendations. Performed By: #### 4 6124 ####[facility] LAB [address] [place] [address] Maurice Coello M.D. [id number] Urea nitrogen [Mass/Vol] 22 mg/dL Normal 8-25 [facility] Comment on above: Order Comment: [facility] has implemented the eGFR calculation approach that does not have a coefficient for race that conforms to the NKF-ASN Task Force Recommendations. Performed By: #### 4 6124 #### LAB [address] [place], [place] [address] Maurice Coello M.D. [id number] Urea nitrogen/Creatinine [Mass ratio] 12.9 mg/mg Normal 10.0-20.0 [facility] Comment on above: Order Comment: [facility] has implemented the eGFR calculation approach that does not have a coefficient for race that conforms to the NKF-ASN Task Force Recommendations. Performed By: #### 4 6124 #### LAB [address] [place], [place] [address] Maurice Coello M.D. [id number] Basic metabolic 2000 panelon 02-18-2025 Anion gap [Moles/Vol] 16 mmol/L 10 - 2 0 mmol/L [facility] Calcium [Mass/Vol] 9.1 mg/dL 8.4 - 10. 2 mg/dL [facility] Chloride [Moles/Vol] 99 mmol/L 98 - 10 8 mmol/L [facility] Creatinine [Mass/Vol] 1.7 mg/dL High 0.60 - 1.20 mg/dL [facility] GFR/1.73 sq M.predicted CKD-EPI (S/P/Bld) [Vol rate/Area] 33 Low - PINF [facility] Comment on above: Estimated GFR was ca lculated using the 2020 CKD-EPI creatinine equation. Glucose [Mass/Vol] 119 mg/dL High 65 - 99 mg/dL [facility] HCO3 [Moles/Vol] 26 mmol/L 21 - 32 mmol/L [facility] Interpretation and review of laboratory results Abnormal [facility] Potassium [Moles/Vol] 3.8 mmol/L 3.5 - 5.1 mmol/L [facility] Sodium [Moles/Vol] 137 mmol/L 135 - 145 mmol/L [facility] Urea nitrogen [Mass/Vol] 22 mg/dL 8 - 25 mg/dL [facility] Urea nitrogen/Creatinine [Mass ratio] 12.9 mg/mg 10.0 - 20.0 [facility] has implemented the eGFR calculation approach that does not have a coefficient for race that conforms to the NKF-ASN Task Force Recommendations. [facility] CBC Auto Differentialon 02-04 Basophils (Bld) [#/Vol] 0.03 10*3/uL [facility] Basophils/100 WBC (Bld) 0.3 % [facility] Eosinophils (Bld) [#/Vol] 0.09 10*3/uL [facility] Eosinophils/100 WBC (Bld) 1 % [facility] Erythrocyte distribution width (RBC) [Entitic vol] 14.2 % 11.6 - 14.8 % [facility] Hematocrit (Bld) [Volume fraction] 33.1 % Low 36.0 - 46.0 % [facility] Hemoglobin (Bld) [Mass/Vol] 9.9 g/dL Low 12.0 - 16.0 g/dL [facility] Immature granulocytes (Bld) [#/Vol] 0.16 10*3/uL [facility] Immature granulocytes/100 WBC (Bld) 1.7 % [facility] Comment on above: The IG parameter is the percentage of metamyelocytes, myelocytes and promyelocytes. An immature granulocyte count (IG) of 1% or more suggests the possibility of infection, an IG count of 3% is very likely related to an infection. Interpretation and review of laboratory results Abnormal [facility] Lymphocytes (Bld) [#/Vol] 1.29 10*3/uL [facility] Lymphocytes/100 WBC (Bld) 13.8 % [facility] MCH (RBC) [Entitic mass] 25.8 pg Low 26.0 - 34.0 pg [facility] MCHC (RBC) [Mass/Vol] 29.9 g/dL Low 31.0 - 37.0 g/dL [facility] MCV (RBC) [Entitic vol] 86.4 fL 80.0 - 100.0 fL [facility] Monocytes (Bld) [#/Vol] 0.6 10*3/uL [facility] Monocytes/100 WBC (Bld) 6.4 % [facility] Neutrophils (Bld) [#/Vol] 7.15 10*3/uL High [facility] Neutrophils/100 WBC (Bld) 76.8 % [facility] Nucleated RBC (Bld) [#/Vol] 0 10*3/uL [facility] Nucleated RBC/100 WBC (Bld) [Ratio] 0 % [facility] Platelet mean volume (Bld) [Entitic vol] 9.9 fL 9.4 - 12.4 fL [facility] Platelets (Bld) [#/Vol] 277 10*3/uL [facility] RBC (Bld) [#/Vol] 3.83 10*6/uL Low [facility] WBC (Bld) [#/Vol] 9.32 10*3/uL [facility] CBC WITH AUTO DIFFERENTIALon 02-18-2025 AUTO NRBC 0.0 % Normal [facility] Comment on above: Performed By: #### L [id number] #### LAB [address] [place] [address] Maurice Coello M.D. [id number] AUTO NRBC ABS COUNT 0.00 K/mcL Normal 0.00-0.00 [facility] Comment on above: Performed By: #### L [id number] #### LAB [address] [place] [address] Maurice Coello M.D. [id number] BASOPHILS ABSOLUTE COUNT 0.03 K/mcL Normal 0.00-0.30 [facility] Comment on above: Performed By: #### L [id number] #### LAB [address] [place] [address] Maurice Coello M.D. [id number] Basophils/100 WBC (Bld) 0.3 % Normal [facility] Comment on above: Performed By: #### L [id number] #### LAB [address] [place] [address] Maurice Coello M.D. [id number] Eosinophils (Bld) [#/Vol] 0.09 10*3/uL Normal 0.00-0.50 [facility] Comment on above: Performed By: #### L [id number] #### LAB [address] [place] [address] Maurice Coello M.D. [id number] Eosinophils/100 WBC (Bld) 1.0 % [facility] Comment on above: Performed By: #### L [id number] #### LAB [address] [place] [address] Maurice Coello M.D. [id number] Erythrocyte distribution width (RBC) [Ratio] 14.2 % Normal 11.6-14.8 [facility] Comment on above: Performed By: #### L [id number] #### LAB [address] [place] [address] Maurice Coello M.D. [id number] Hematocrit (Bld) [Volume fraction] 33.1 % Low 36.0-46.0 [facility] Comment on above: Performed By: #### L [id number] #### LAB [address] [place] [address] Maurice Coello M.D. [id number] Hemoglobin (Bld) [Mass/Vol] 9.9 g/dL Low 12.0-16.0 [facility] Comment on above: Performed By: #### L [id number] #### LAB [address] [place] [address] Maurice Coello M.D. [id number] IG ABSOLUTE 0.16 K/mcL Normal 0.00-0.30 [facility] Comment on above: Performed By: #### L [id number] #### LAB [address] [place] [address] Maurice Coello M.D. [id number] IG PERCENT 1.70 % Normal [facility] Comment on above: Result Comment: The IG parameter is the percentage of metamyelocytes, myelocytes and promyelocytes. An immature granulocyte count (IG) of 1% or more suggests the possibility of infection, an IG count of 3% is very likely related to an infection. Performed By: #### L [id number] #### LAB [address] [place] [address] Maurice oCello M.D. [id number] Lymphocytes (Bld) [#/Vol] 1.29 10*3/uL Normal 0.90-4.00 [facility] Comment on above: Performed By: #### L [id number] #### LAB [address] [place] [address] Maurice Coello M.D. [id number] Lymphocytes/100 WBC (Bld) 13.8 % Normal [facility] Comment on above: Performed By: #### L [id number] #### LAB [address] [place] [address] Maurice Coello M.D. [id number] MCH (RBC) [Entitic mass] 25.8 pg Low 26.0-34.0 [facility] Comment on above: Performed By: #### L [id number] ####[facility] LAB [address] [place] [address] Maurice Coello M.D. [id number] MCV (RBC) [Entitic vol] 86.4 fL Normal 80.0-100.0 [facility] Comment on above: Performed By: #### L [id number] #### LAB [address] [place] [address] Maurice Coello M.D. [id number] MEAN CORPUSCULAR HEMOGLOBIN CONC 29.9 g/dL Low 31.0-37.0 [facility] Comment on above: Performed By: #### L [id number] #### LAB [address] [place] [address] Maurice Coello M.D. [id number] Monocytes (Bld) [#/Vol] 0.60 10*3/uL Normal 0.30-0.90 [facility] Comment on above: Performed By: #### L [id number] #### LAB [address] [place] [address] Maurice Coello M.D. [id number] Monocytes/100 WBC (Bld) 6.4 % Normal [facility] Comment on above: Performed By: #### L [id number] ####[facility] LAB [address] [place] [address] Maurice Coello M.D. [id number] NEUTROPHILS ABSOLUTE COUNT 7.15 K/mcL High 1.70-7.00 [facility] Comment on above: Performed By: #### L [id number] ####[facility] LAB [address] [place] [address] Maurice Coello M.D. [id number] Neutrophils/100 WBC (Bld) 76.8 % Normal [facility] Comment on above: Performed By: #### L [id number] #### LAB [address] [place] [address] Maurice Coello M.D. [id number] Platelet mean volume (Bld) [Entitic vol] 9.9 fL Normal 9.4-12.4 [facility] Comment on above: Performed By: #### L [id number] ####[facility] LAB [address] [place] [address] Maurice Coello M.D. [id number] Platelets (Bld) [#/Vol] 277 10*3/uL Normal 150-400 [facility] Comment on above: Performed By: #### L [id number] #### LAB [address] [place] [address] Maurice Coello M.D. [id number] RBC (Bld) [#/Vol] 3.83 10*6/uL Low 4.00-5.20 [facility] Comment on above: Performed By: #### L [id number] ####[facility] LAB [address] [place] [address] Maurice Coello M.D. [id number] WBC (Bld) [#/Vol] 9.32 10*3/uL Normal 4.50-11.00 [facility] Comment on above: Performed By: #### L [id number] #### LAB [address] [place] [address] Maurice Coello M.D. [id number] CK [Catalytic activity/Vol]o n 02-18-2025 Interpretation and review of laboratory results Abnormal [facility] CPKon 02-18-2025 CPK 539 U/L High 40-170 [facility] Comment on above: Performed By: #### 4 6124 #### [facility] LAB [address] [place] [address] Maurice Coello M.D. [id number] CPK NO MBon 04-15-2025 CK [Catalytic activity/Vol] 539 U/L High 40 - 170 U/L [facility] EKGon 02-18-2025 [facility] Glucose (Bld) [Mass/Vol]on 0 02-18-2025 Glucose [Mass/Vol] 115 mg/dL High 65 - 99 mg/dL [facility] Interpretation and review of laboratory results Abnormal [facility] POC GLUCOSE - Lexa 025 Glucose [Mass/Vol] 115 mg/dL High 65-99 [facility] Comment on above: Performed By: #### 4 6932 #### LAB [address] [place] [address] Maurice Coello M.D. [id number] BASIC METABOLIC PANELon 02-04 Anion gap [Moles/Vol] 13 mmol/L Normal 10-[address] [facility] Comment on above: Order Comment: Injur y/Trauma or Illness?:Illness/Other How long have you had these symptoms (acute/chronic)?:Acute Reason for exam?:sob. Hx of COPD History of cancer?:unknown Surgeries, chemotherapy, or radiation?:cholecystectomy, hysterectomy, oophrectomy, left knee replacement Type of Exam?:Initial Additional signs and symptoms?:. Performed By: #### 4 6124 #### LAB [address] [place] [address] Maurice Coello M.D. [id number] Calcium [Mass/Vol] 8.5 mg/dL Normal 8.4-10.2 [facility] Comment on above: Order Comment: Injur y/Trauma or Illness?:Illness/Other How long have you had these symptoms (acute/chronic)?:Acute Reason for exam?:sob. Hx of COPD History of cancer?:unknown Surgeries, chemotherapy, or radiation?:cholecystectomy, hysterectomy, oophrectomy, left knee replacement Type of Exam?:Initial Additional signs and symptoms?:. Performed By: #### 4 6111 #### LAB [address] [place] [address] Maurice Coello M.D. [id number] Chloride [Moles/Vol] 104 mmol/L Normal 98-108 [facility] Comment on above: Order Comment: Injur y/Trauma or Illness?:Illness/Other How long have you had these symptoms (acute/chronic)?:Acute Reason for exam?:sob. Hx of COPD History of cancer?:unknown Surgeries, chemotherapy, or radiation?:cholecystectomy, hysterectomy, oophrectomy, left knee replacement Type of Exam?:Initial Additional signs and symptoms?:. Performed By: #### 4 6199 #### LAB [address] [place], [place] [address] Maurice Coello M.D. [id number] Creatinine [Mass/Vol] 1.48 mg/dL High 0.60-1.[address] [facility] Comment on above: Order Comment: Injur y/Trauma or Illness?:Illness/Other How long have you had these symptoms (acute/chronic)?:Acute Reason for exam?:sob. Hx of COPD History of cancer?:unknown Surgeries, chemotherapy, or radiation?:cholecystectomy, hysterectomy, oophrectomy, left knee replacement Type of Exam?:Initial Additional signs and symptoms?:. Performed By: #### 4 6124 #### LAB [address] [place] [address] Maurice Coello M.D. [id number] EGFR 39 mL/min/1.73 m2 Low >=60 [facility] Comment on above: Order Comment: Injur y/Trauma or Illness?:Illness/Other How long have you had these symptoms (acute/chronic)?:Acute Reason for exam?:sob. Hx of COPD History of cancer?:unknown Surgeries, chemotherapy, or radiation?:cholecystectomy, hysterectomy, oophrectomy, left knee replacement Type of Exam?:Initial Additional signs and symptoms?:. Result Comment: Ericka mated GFR was calculated using the 2020 CKD-EPI creatinine equation. Performed By: #### 4 6179 #### LAB [address] [place], [place] [address] Maurice Coello M.D. [id number] Glucose [Mass/Vol] 83 mg/dL Normal 65-99 [facility] Comment on above: Order Comment: Injur y/Trauma or Illness?:Illness/Other How long have you had these symptoms (acute/chronic)?:Acute Reason for exam?:sob. Hx of COPD History of cancer?:unknown Surgeries, chemotherapy, or radiation?:cholecystectomy, hysterectomy, oophrectomy, left knee replacement Type of Exam?:Initial Additional signs and symptoms?:. Performed By: #### 4 6199 #### LAB [address] [place] [address] Maurice Coello M.D. [id number] HCO3 (Bld) [Moles/Vol] 25 mmol/L Normal 21-32 [facility] Comment on above: Order Comment: Injur y/Trauma or Illness?:Illness/Other How long have you had these symptoms (acute/chronic)?:Acute Reason for exam?:sob. Hx of COPD History of cancer?:unknown Surgeries, chemotherapy, or radiation?:cholecystectomy, hysterectomy, oophrectomy, left knee replacement Type of Exam?:Initial Additional signs and symptoms?:. Performed By: #### 4 6124 #### LAB [address] [place] [address] Maurice Coello M.D. [id number] Potassium [Moles/Vol] 3.7 mmol/L Normal 3.5-5.[address] [facility] Comment on above: Order Comment: Injur y/Trauma or Illness?:Illness/Other How long have you had these symptoms (acute/chronic)?:Acute Reason for exam?:sob. Hx of COPD History of cancer?:unknown Surgeries, chemotherapy, or radiation?:cholecystectomy, hysterectomy, oophrectomy, left knee replacement Type of Exam?:Initial Additional signs and symptoms?:. Performed By: #### 4 6195 #### LAB [address] [place] [address] Maurice Coello M.D. [id number] Sodium [Moles/Vol] 138 mmol/L Normal 135-145 [facility] Comment on above: Order Comment: Injur y/Trauma or Illness?:Illness/Other How long have you had these symptoms (acute/chronic)?:Acute Reason for exam?:sob. Hx of COPD History of cancer?:unknown Surgeries, chemotherapy, or radiation?:cholecystectomy, hysterectomy, oophrectomy, left knee replacement Type of Exam?:Initial Additional signs and symptoms?:. Performed By: #### 4 6144 #### LAB [address] [place] [address] Maurice Coello M.D. [id number] Urea nitrogen [Mass/Vol] 17 mg/dL Normal 8-25 [facility] Comment on above: Order Comment: Injur y/Trauma or Illness?:Illness/Other How long have you had these symptoms (acute/chronic)?:Acute Reason for exam?:sob. Hx of COPD History of cancer?:unknown Surgeries, chemotherapy, or radiation?:cholecystectomy, hysterectomy, oophrectomy, left knee replacement Type of Exam?:Initial Additional signs and symptoms?:. Performed By: #### 4 6124 #### LAB [address] [place], [place] [address] Maurice Coello M.D. [id number] Urea nitrogen/Creatinine [Mass ratio] 11.5 mg/mg Normal 10.0-20.0 [facility] Comment on above: Order Comment: Injur y/Trauma or Illness?:Illness/Other How long have you had these symptoms (acute/chronic)?:Acute Reason for exam?:sob. Hx of COPD History of cancer?:unknown Surgeries, chemotherapy, or radiation?:cholecystectomy, hysterectomy, oophrectomy, left knee replacement Type of Exam?:Initial Additional signs and symptoms?:. Performed By: #### 4 6124 #### LAB [address] [place], [place] [address] Maurice Coello M.D. [id number] Basic metabolic 2000 panelon 02-17-2025 Anion gap [Moles/Vol] 13 mmol/L 10 - 2 0 mmol/L [facility] Calcium [Mass/Vol] 8.5 mg/dL 8.4 - 10. 2 mg/dL [facility] Chloride [Moles/Vol] 104 mmol/L 98 - 10 8 mmol/L [facility] Creatinine [Mass/Vol] 1.48 mg/dL High 0.60 - 1.20 mg/dL [facility] GFR/1.73 sq M.predicted CKD-EPI (S/P/Bld) [Vol rate/Area] 39 Low - PINF [facility] Comment on above: Estimated GFR was ca lculated using the 2020 CKD-EPI creatinine equation. Glucose [Mass/Vol] 83 mg/dL 65 - 99 mg/dL [facility] HCO3 [Moles/Vol] 25 mmol/L 21 - 32 mmol/L [facility] Potassium [Moles/Vol] 3.7 mmol/L 3.5 - 5.1 mmol/L [facility] Sodium [Moles/Vol] 138 mmol/L 135 - 145 mmol/L [facility] Urea nitrogen [Mass/Vol] 17 mg/dL 8 - 25 mg/dL [facility] Urea nitrogen/Creatinine [Mass ratio] 11.5 mg/mg 10.0 - 20.0 [facility] has implemented the eGFR calculation approach that does not have a coefficient for race that conforms to the NKF-ASN Task Force Recommendations. [facility] CBC Auto Differentialon 02-04 Basophils (Bld) [#/Vol] 0.04 10*3/uL [facility] Basophils/100 WBC (Bld) 0.5 % [facility] Eosinophils (Bld) [#/Vol] 0.06 10*3/uL [facility] Eosinophils/100 WBC (Bld) 0.8 % [facility] Erythrocyte distribution width (RBC) [Entitic vol] 14.1 % 11.6 - 14.8 % [facility] Hematocrit (Bld) [Volume fraction] 31.4 % Low 36.0 - 46.0 % [facility] Hemoglobin (Bld) [Mass/Vol] 9.3 g/dL Low 12.0 - 16.0 g/dL [facility] Immature granulocytes (Bld) [#/Vol] 0.13 10*3/uL [facility] Immature granulocytes/100 WBC (Bld) 1.7 % [facility] Comment on above: The IG parameter is the percentage of metamyelocytes, myelocytes and promyelocytes. An immature granulocyte count (IG) of 1% or more suggests the possibility of infection, an IG count of 3% is very likely related to an infection. Interpretation and review of laboratory results Abnormal [facility] Lymphocytes (Bld) [#/Vol] 1.54 10*3/uL [facility] Lymphocytes/100 WBC (Bld) 19.6 % [facility] MCH (RBC) [Entitic mass] 25.9 pg Low 26.0 - 34.0 pg [facility] MCHC (RBC) [Mass/Vol] 29.6 g/dL Low 31.0 - 37.0 g/dL [facility] MCV (RBC) [Entitic vol] 87.5 fL 80.0 - 100.0 fL [facility] Monocytes (Bld) [#/Vol] 0.72 10*3/uL [facility] Monocytes/100 WBC (Bld) 9.2 % [facility] Neutrophils (Bld) [#/Vol] 5.35 10*3/uL [facility] Neutrophils/100 WBC (Bld) 68.2 % [facility] Nucleated RBC (Bld) [#/Vol] 0 10*3/uL [facility] Nucleated RBC/100 WBC (Bld) [Ratio] 0 % [facility] Platelet mean volume (Bld) [Entitic vol] 10.2 fL 9.4 - 12.4 fL [facility] Platelets (Bld) [#/Vol] 221 10*3/uL [facility] RBC (Bld) [#/Vol] 3.59 10*6/uL Low [facility] WBC (Bld) [#/Vol] 7.84 10*3/uL [facility] CBC WITH AUTO DIFFERENTIALon 02-17-2025 AUTO NRBC 0.0 % Normal [facility] Comment on above: Performed By: #### L [id number] #### LAB [address] [address] Maurice Coello M.D. [id number] AUTO NRBC ABS COUNT 0.00 K/mcL Normal 0.00-0.00 [facility] Comment on above: Performed By: #### L [id number] #### LAB [address] [address] Maurice Coello M.D. [id number] BASOPHILS ABSOLUTE COUNT 0.04 K/mcL Normal 0.00-0.30 [facility] Comment on above: Performed By: #### L [id number] #### LAB [address] [address] Maurice Coello M.D. [id number] Basophils/100 WBC (Bld) 0.5 % Normal [facility] Comment on above: Performed By: #### L [id number] #### LAB [address] [address] Maurice Coello M.D. [id number] Eosinophils (Bld) [#/Vol] 0.06 10*3/uL Normal 0.00-0.50 [facility] Comment on above: Performed By: #### L [id number] #### LAB [address] [place] [address] Maurice Coello M.D. [id number] Eosinophils/100 WBC (Bld) 0.8 % Normal [facility] Comment on above: Performed By: #### L [id number] #### LAB [address] [address] Maurice Coello M.D. [id number] Erythrocyte distribution width (RBC) [Ratio] 14.1 % Normal 11.6-14.8 [facility] Comment on above: Performed By: #### L [id number] #### LAB [address] [address] Maurice Coello M.D. [id number] Hematocrit (Bld) [Volume fraction] 31.4 % Low 36.0-46.0 [facility] Comment on above: Performed By: #### L [id number] #### LAB [address] [address] Maurice Coello M.D. [id number] Hemoglobin (Bld) [Mass/Vol] 9.3 g/dL Low 12.0-16.0 [facility] Comment on above: Performed By: #### L [id number] #### LAB [address] [place] [address] Maurice Coello M.D. [id number] IG ABSOLUTE 0.13 K/mcL Normal 0.00-0.30 [facility] Comment on above: Performed By: #### L [id number] #### LAB [address] [place] [address] Maurice Coello M.D. [id number] IG PERCENT 1.70 % Normal [facility] Comment on above: Result Comment: The IG parameter is the percentage of metamyelocytes, myelocytes and promyelocytes. An immature granulocyte count (IG) of 1% or more suggests the possibility of infection, an IG count of 3% is very likely related to an infection. Performed By: #### L [id number] #### LAB [address] [address] Maurice Coello M.D. [id number] Lymphocytes (Bld) [#/Vol] 1.54 10*3/uL Normal 0.90-4.00 [facility] Comment on above: Performed By: #### L [id number] #### LAB [address] [address] Maurice Coello M.D. [id number] Lymphocytes/100 WBC (Bld) 19.6 % Normal [facility] Comment on above: Performed By: #### L [id number] #### LAB [address] [address] Maurice Coello M.D. [id number] MCH (RBC) [Entitic mass] 25.9 pg Low 26.0-34.0 [facility] Comment on above: Performed By: #### L [id number] #### LAB [address] [address] Maurice Coello M.D. [id number] MCV (RBC) [Entitic vol] 87.5 fL Normal 80.0-100.0 [facility] Comment on above: Performed By: #### L [id number] #### LAB [address] [place] [address] Maurice Coello M.D. [id number] MEAN CORPUSCULAR HEMOGLOBIN CONC 29.6 g/dL Low 31.0-37.0 [facility] Comment on above: Performed By: #### L [id number] #### LAB [address] [address] Maurice Coello M.D. [id number] Monocytes (Bld) [#/Vol] 0.72 10*3/uL Normal 0.30-0.90 [facility] Comment on above: Performed By: #### L [id number] #### LAB [address] [address] Maurice Coello M.D. [id number] Monocytes/100 WBC (Bld) 9.2 % Normal [facility] Comment on above: Performed By: #### L [id number] #### LAB [address] [address] Maurice Coello M.D. [id number] NEUTROPHILS ABSOLUTE COUNT 5.35 K/mcL Normal 1.70-7.00 [facility] Comment on above: Performed By: #### L [id number] #### LAB [address] [address] Maurice Coello M.D. [id number] Neutrophils/100 WBC (Bld) 68.2 % Normal [facility] Comment on above: Performed By: #### L [id number] #### LAB [address] [address] Maurice Coello M.D. [id number] Platelet mean volume (Bld) [Entitic vol] 10.2 fL Normal 9.4-12.4 [facility] Comment on above: Performed By: #### L [id number] #### LAB [address] [address] Maurice Coello M.D. [id number] Platelets (Bld) [#/Vol] 221 10*3/uL Normal 150-400 [facility] Comment on above: Performed By: #### L [id number] #### LAB [address] [address] Maurice Coello M.D. [id number] RBC (Bld) [#/Vol] 3.59 10*6/uL Low 4.00-5.20 [facility] Comment on above: Performed By: #### L [id number] #### LAB [address] [address] Maurice Coello M.D. [id number] WBC (Bld) [#/Vol] 7.84 10*3/uL Normal 4.50-11.00 [facility] Comment on above: Performed By: #### L [id number] #### LAB [address] [address] Maurice Coello M.D. [id number] CPKon 02-17-2025 CPK 1606 U/L High 40-170 [facility] Comment on above: Performed By: #### L [id number] #### MH LAB [address] [place], [place] [address] Maurice Coello M.D. [id number] CPK NO MBon 02-17-2025 CK [Catalytic activity/Vol] 1606 U/L High 40 - 170 U/L [facility] Glucose (Bld) [Mass/Vol]on 0 02-17-2025 Glucose [Mass/Vol] 132 mg/dL High 65 - 99 [facility] Interpretation and review of laboratory results Abnormal [facility] Glucose [Mass/Vol] 167 mg/dL High 65 - 99 mg/dL [facility] Interpretation and review of laboratory results Abnormal [facility] Glucose [Mass/Vol] 101 mg/dL High 65 - 99 mg/dL [facility] Interpretation and review of laboratory results Abnormal [facility] MAGNESIUM LEVELon 02-17-2025 Magnesium [Mass/Vol] 1.5 mg/dL Low 1.6-2.4 [facility] Comment on above: Performed By: #### 4 [id number] ####MH LAB [address] [address] Maurice Coello M.D. [id number] Magnesium Levelon 02-17-2025 Magnesium [Mass/Vol] 1.5 mg/dL Low 1.6 - 2 .4 mg/dL [facility] No Panel Informationon 02-17 Interpretation and review of laboratory results Abnormal [facility] Glucose [Mass/Vol] 132 mg/dL High 65-99 [facility] Comment on above: Performed By: #### L [id number] #### MH LAB [address] [place], [place] [address] Maurice Coello M.D. [id number] Glucose [Mass/Vol] 167 mg/dL High 65-99 [facility] Comment on above: Performed By: #### L [id number] #### MH LAB [address] [place], [place] [address] Maurice Coello M.D. [id number] Glucose [Mass/Vol] 101 mg/dL High 65-99 [facility] Comment on above: Performed By: #### L [id number] #### LAB [address] [place], [place] [address] Maurice Coello M.D. [id number] BASIC METABOLIC PANELon - Anion gap [Moles/Vol] 13 mmol/L Normal 10-[address] [facility] Comment on above: Order Comment: [facility] has implemented the eGFR calculation approach that does not have a coefficient for race that conforms to the NKF-ASN Task Force Recommendations. Performed By: #### 4 [id number] #### LAB [address] [id number] Maurice Coello M.D. [id number] Calcium [Mass/Vol] 8.0 mg/dL Low 8.4-10.2 [facility] Comment on above: Order Comment: [facility] has implemented the eGFR calculation approach that does not have a coefficient for race that conforms to the NKF-ASN Task Force Recommendations. Performed By: #### 4 [id number] #### LAB [address] [place], [place] [address] Maurice Coello M.D. [id number] Chloride [Moles/Vol] 106 mmol/L Normal 98-108 [facility] Comment on above: Order Comment: [facility] has implemented the eGFR calculation approach that does not have a coefficient for race that conforms to the NKF-ASN Task Force Recommendations. Performed By: #### 4 [id number] #### LAB [address] [address] Maurice Coello M.D. [id number] Creatinine [Mass/Vol] 1.28 mg/dL High 0.60-1.[address] [facility] Comment on above: Order Comment: [facility] has implemented the eGFR calculation approach that does not have a coefficient for race that conforms to the NKF-ASN Task Force Recommendations. Performed By: #### 4 [id number] #### LAB [address] [address] Maurice Coello M.D. [id number] EGFR 46 mL/min/1.73 m2 Low >=60 [facility] Comment on above: Order Comment: [facility] has implemented the eGFR calculation approach that does not have a coefficient for race that conforms to the NKF-ASN Task Force Recommendations. Result Comment: Ericka mated GFR was calculated using the 2020 CKD-EPI creatinine equation. Performed By: #### 4 [id number] #### LAB [address] [address] Maurice Coello M.D. [id number] Glucose [Mass/Vol] 128 mg/dL High 65-99 [facility] Comment on above: Order Comment: [facility] has implemented the eGFR calculation approach that does not have a coefficient for race that conforms to the NKF-ASN Task Force Recommendations. Performed By: #### 4 [id number] #### LAB [address] [address] Maurice Coello M.D. [id number] HCO3 (Bld) [Moles/Vol] 22 mmol/L Normal 21-32 [facility] Comment on above: Order Comment: [facility] has implemented the eGFR calculation approach that does not have a coefficient for race that conforms to the NKF-ASN Task Force Recommendations. Performed By: #### 4 [id number] #### LAB [address] [address] Maurice Coello M.D. [id number] Potassium [Moles/Vol] 3.9 mmol/L Normal 3.5-5.[address] [facility] Comment on above: Order Comment: [facility] has implemented the eGFR calculation approach that does not have a coefficient for race that conforms to the NKF-ASN Task Force Recommendations. Performed By: #### 4 6115 #### LAB [address] [address] Maurice Coello M.D. [id number] Sodium [Moles/Vol] 137 mmol/L Normal 135-145 [facility] Comment on above: Order Comment: [facility] has implemented the eGFR calculation approach that does not have a coefficient for race that conforms to the NKF-ASN Task Force Recommendations. Performed By: #### 4 6124 #### LAB [address] [place], [place] [address] Maurice Coello M.D. [id number] Urea nitrogen [Mass/Vol] 15 mg/dL Normal 8-25 [facility] Comment on above: Order Comment: [facility] has implemented the eGFR calculation approach that does not have a coefficient for race that conforms to the NKF-ASN Task Force Recommendations. Performed By: #### 4 6124 #### LAB [address] [place], [place] [address] Maurice Coello M.D. [id number] Urea nitrogen/Creatinine [Mass ratio] 11.7 mg/mg Normal 10.0-20.0 [facility] Comment on above: Order Comment: [facility] has implemented the eGFR calculation approach that does not have a coefficient for race that conforms to the NKF-ASN Task Force Recommendations. Performed By: #### 4 [id number] #### LAB [address] [place], [place] [address] Maurice Coello M.D. [id number] Basic metabolic 2000 panelon 02-16-2025 Anion gap [Moles/Vol] 13 mmol/L 10 - 2 0 mmol/L [facility] Calcium [Mass/Vol] 8 mg/dL Low 8.4 - 10. 2 mg/dL [facility] Chloride [Moles/Vol] 106 mmol/L 98 - 10 8 mmol/L [facility] Creatinine [Mass/Vol] 1.28 mg/dL High 0.60 - 1.20 mg/dL [facility] GFR/1.73 sq M.predicted CKD-EPI (S/P/Bld) [Vol rate/Area] 46 Low - PINF [facility] Comment on above: Estimated GFR was ca lculated using the 2020 CKD-EPI creatinine equation. Glucose [Mass/Vol] 128 mg/dL High 65 - 99 mg/dL [facility] HCO3 [Moles/Vol] 22 mmol/L 21 - 32 mmol/L [facility] Interpretation and review of laboratory results Abnormal [facility] Potassium [Moles/Vol] 3.9 mmol/L 3.5 - 5.1 mmol/L [facility] Sodium [Moles/Vol] 137 mmol/L 135 - 145 mmol/L [facility] Urea nitrogen [Mass/Vol] 15 mg/dL 8 - 25 mg/dL [facility] Urea nitrogen/Creatinine [Mass ratio] 11.7 mg/mg 10.0 - 20.0 [facility] has implemented the eGFR calculation approach that does not have a coefficient for race that conforms to the NKF-ASN Task Force Recommendations. [facility] CBC Auto Differentialon 02-04 Basophils (Bld) [#/Vol] 0.04 10*3/uL [facility] Basophils/100 WBC (Bld) 0.5 % [facility] Eosinophils (Bld) [#/Vol] 0.03 10*3/uL [facility] Eosinophils/100 WBC (Bld) 0.4 % [facility] Erythrocyte distribution width (RBC) [Entitic vol] 13.9 % 11.6 - 14.8 % [facility] Hematocrit (Bld) [Volume fraction] 31.8 % Low 36.0 - 46.0 % [facility] Hemoglobin (Bld) [Mass/Vol] 9.5 g/dL Low 12.0 - 16.0 g/dL [facility] Immature granulocytes (Bld) [#/Vol] 0.06 10*3/uL [facility] Immature granulocytes/100 WBC (Bld) 0.8 % [facility] Comment on above: The IG parameter is the percentage of metamyelocytes, myelocytes and promyelocytes. An immature granulocyte count (IG) of 1% or more suggests the possibility of infection, an IG count of 3% is very likely related to an infection. Interpretation and review of laboratory results Abnormal [facility] Lymphocytes (Bld) [#/Vol] 1.24 10*3/uL [facility] Lymphocytes/100 WBC (Bld) 15.8 % [facility] MCH (RBC) [Entitic mass] 26.2 pg 26.0 - 34.0 pg [facility] MCHC (RBC) [Mass/Vol] 29.9 g/dL Low 31.0 - 37.0 g/dL [facility] MCV (RBC) [Entitic vol] 87.6 fL 80.0 - 100.0 fL [facility] Monocytes (Bld) [#/Vol] 0.61 10*3/uL [facility] Monocytes/100 WBC (Bld) 7.8 % [facility] Neutrophils (Bld) [#/Vol] 5.85 10*3/uL [facility] Neutrophils/100 WBC (Bld) 74.7 % [facility] Nucleated RBC (Bld) [#/Vol] 0 10*3/uL [facility] Nucleated RBC/100 WBC (Bld) [Ratio] 0 % [facility] Platelet mean volume (Bld) [Entitic vol] 9.8 fL 9.4 - 12.4 fL [facility] Platelets (Bld) [#/Vol] 199 10*3/uL [facility] RBC (Bld) [#/Vol] 3.63 10*6/uL Low [facility] WBC (Bld) [#/Vol] 7.83 10*3/uL [facility] CBC WITH AUTO DIFFERENTIALon 02-16-2025 AUTO NRBC 0.0 % Normal [facility] Comment on above: Performed By: #### L [id number] #### LAB [address] [place] [address] Maurice Coello M.D. [id number] AUTO NRBC ABS COUNT 0.00 K/mcL Normal 0.00-0.00 [facility] Comment on above: Performed By: #### L [id number] #### LAB [address] [address] Maurice Coello M.D. [id number] BASOPHILS ABSOLUTE COUNT 0.04 K/mcL Normal 0.00-0.30 [facility] Comment on above: Performed By: #### L [id number] #### LAB [address] [address] Maurice Coello M.D. [id number] Basophils/100 WBC (Bld) 0.5 % Normal [facility] Comment on above: Performed By: #### L [id number] #### LAB [address] [address] Maurice Coello M.D. [id number] Eosinophils (Bld) [#/Vol] 0.03 10*3/uL Normal 0.00-0.50 [facility] Comment on above: Performed By: #### L [id number] #### LAB [address] [address] Maurice Coello M.D. [id number] Eosinophils/100 WBC (Bld) 0.4 % Normal [facility] Comment on above: Performed By: #### L [id number] #### LAB [address] [address] Maurice Coello M.D. [id number] Erythrocyte distribution width (RBC) [Ratio] 13.9 % Normal 11.6-14.8 [facility] Comment on above: Performed By: #### L [id number] #### LAB [address] [address] Maurice Coello M.D. [id number] Hematocrit (Bld) [Volume fraction] 31.8 % Low 36.0-46.0 [facility] Comment on above: Performed By: #### L [id number] #### LAB [address] [address] Maurice Coello M.D. [id number] Hemoglobin (Bld) [Mass/Vol] 9.5 g/dL Low 12.0-16.0 [facility] Comment on above: Performed By: #### L [id number] #### LAB [address] [address] Maurice Coello M.D. [id number] IG ABSOLUTE 0.06 K/mcL Normal 0.00-0.30 [facility] Comment on above: Performed By: #### L [id number] #### LAB [address] [address] Maurice Coello M.D. [id number] IG PERCENT 0.80 % Normal [facility] Comment on above: Result Comment: The IG parameter is the percentage of metamyelocytes, myelocytes and promyelocytes. An immature granulocyte count (IG) of 1% or more suggests the possibility of infection, an IG count of 3% is very likely related to an infection. Performed By: #### L [id number] #### LAB [address] [place] [address] Maurice Coello M.D. [id number] Lymphocytes (Bld) [#/Vol] 1.24 10*3/uL Normal 0.90-4.00 [facility] Comment on above: Performed By: #### L [id number] #### LAB [address] [address] Maurice Coello M.D. [id number] Lymphocytes/100 WBC (Bld) 15.8 % Normal [facility] Comment on above: Performed By: #### L [id number] #### LAB [address] [address] Maurice Coello M.D. [id number] MCH (RBC) [Entitic mass] 26.2 pg Normal 26.0-34.0 [facility] Comment on above: Performed By: #### L [id number] #### LAB [address] [address] Maurice Coello M.D. [id number] MCV (RBC) [Entitic vol] 87.6 fL Normal 80.0-100.0 [facility] Comment on above: Performed By: #### L [id number] #### LAB [address] [place] [address] Maurice Coello M.D. [id number] MEAN CORPUSCULAR HEMOGLOBIN CONC 29.9 g/dL Low 31.0-37.0 [facility] Comment on above: Performed By: #### L [id number] #### LAB [address] [place] [address] Maurice Coello M.D. [id number] Monocytes (Bld) [#/Vol] 0.61 10*3/uL Normal 0.30-0.90 [facility] Comment on above: Performed By: #### L [id number] #### LAB [address] [place] [address] Maurice Coello M.D. [id number] Monocytes/100 WBC (Bld) 7.8 % Normal [facility] Comment on above: Performed By: #### L [id number] #### LAB [address] [address] Maurice Coello M.D. [id number] NEUTROPHILS ABSOLUTE COUNT 5.85 K/mcL Normal 1.70-7.00 [facility] Comment on above: Performed By: #### L [id number] ####[facility] LAB [address] [address] Maurice Coello M.D. [id number] Neutrophils/100 WBC (Bld) 74.7 % Normal [facility] Comment on above: Performed By: #### L [id number] ####[facility] LAB [address] [address] Maurice Coello M.D. [id number] Platelet mean volume (Bld) [Entitic vol] 9.8 fL Normal 9.4-12.4 [facility] Comment on above: Performed By: #### L [id number] ####[facility] LAB [address] [address] Maurice Coello M.D. [id number] Platelets (Bld) [#/Vol] 199 10*3/uL Normal 150-400 [facility] Comment on above: Performed By: #### L [id number] ####[facility] LAB [address] [address] Maurice Coello M.D. [id number] RBC (Bld) [#/Vol] 3.63 10*6/uL Low 4.00-5.20 [facility] Comment on above: Performed By: #### L [id number] ####[facility] LAB [address] [address] Maurice Coello M.D. [id number] WBC (Bld) [#/Vol] 7.83 10*3/uL Normal 4.50-11.00 [facility] Comment on above: Performed By: #### L [id number] ####[facility] LAB [address] [address] Maurice Coello M.D. [id number] CK [Catalytic activity/Vol]o n 02-16-2025 Interpretation and review of laboratory results Abnormal [facility] Interpretation and review of laboratory results Abnormal [facility] CPKon 02-16-2025 CPK 4535 U/L High 40-170 [facility] Comment on above: Performed By: #### 4 [id number] #### LAB [address] [place], [place] [address] Maurice Coello M.D. [id number] CPK 5003 U/L High 40-170 [facility] Comment on above: Performed By: #### 4 [id number] #### LAB [address] [place], [place] [address] Maurice Coello M.D. [id number] CPK NO MBon 02-16-2025 CK [Catalytic activity/Vol] 4535 U/L High 40 - 170 U/L [facility] CK [Catalytic activity/Vol] 5003 U/L High 40 - 170 U/L [facility] Glucose (Bld) [Mass/Vol]on 0 02-16-2025 Glucose [Mass/Vol] 170 mg/dL High 65 - 99 mg/dL [facility] Interpretation and review of laboratory results Abnormal [facility] Glucose [Mass/Vol] 119 mg/dL High 65 - 99 mg/dL [facility] Interpretation and review of laboratory results Abnormal [facility] Glucose [Mass/Vol] 109 mg/dL High 65 - 99 mg/dL [facility] Interpretation and review of laboratory results Abnormal [facility] Glucose [Mass/Vol] 126 mg/dL High 65 - 99 mg/dL [facility] oHealth Interpretation and review of laboratory results Abnormal [facility] MAGNESIUM LEVELon 02-16-2025 Magnesium [Mass/Vol] 1.6 mg/dL Normal 1.6-2.4 [facility] Comment on above: Performed By: #### [id number] #### LAB [address] [place], [place] [address] Maurice Coello M.D. [id number] Magnesium Levelon 02-16-2025 Magnesium [Mass/Vol] 1.6 mg/dL 1.6 - 2 .4 mg/dL [facility] Magnesium [Mass/Vol]on 02-16 Interpretation and review of laboratory results Normal [facility] NT PRO BNPon 02-16-2025 Natriuretic peptide B (Bld) [Mass/Vol] 3770 pg/mL High 0-300 [facility] Comment on above: Order Comment: [facility] has implemented the eGFR calculation approach that does not have a coefficient for race that conforms to the NKF-ASN Task Force Recommendations. Performed By: #### 4 [id number] #### MH LAB [address] [place] [address] Maurice Coello M.D. [id number] NT Pro BNPon 02-16-2025 Natriuretic peptide.B prohormone N-Terminal [Mass/Vol] 3770 pg/mL High 0 - 300 pg/mL [facility] Natriuretic peptide.B prohor curly N-Terminal [Mass/Vol]on 02-16-2025 Interpretation and review of laboratory results Abnormal [facility] Pride Study Cut-offs Rule In: < /= 50 Years >450 pg/mL 51 Years - 75 Years >900 pg/mL 76 Years - 99 Years >1800 pg/mL Rule Out: All patients <300 pg/mL [facility] POC GLUCOSE - [facility] 025 Glucose [Mass/Vol] 170 mg/dL High [address] [place] [address] Comment on above: Performed By: #### L [id number] #### MH LAB [address] [place] [address] Maurice Coello M.D. [id number] Glucose [Mass/Vol] 119 mg/dL [address] Comment on above: Performed By: #### L [id number] #### MH LAB [address] [place] [address] Maurice Coello M.D. [id number] Glucose [Mass/Vol] 109 mg/dL [address] Comment on above: Performed By: #### L [id number] #### MH LAB [address] [place] [address] Maurice Coello M.D. [id number] Glucose [Mass/Vol] 126 mg/dL [address] Comment on above: Performed By: #### L [id number] #### MH LAB [address] [place] [address] Maurice Coello M.D. [id number] Repeat EKGon 02-16-2025 Atrial Rate 75 BPM [facility] P Wiggins 74 degrees [facility] P-R Interval 136 ms [facility] Q-T Interval 424 ms [facility] QRS Duration 104 ms [facility] QTC Calculation (Bezet) 473 ms [facility] R Wiggins 20 degrees [facility] T Wiggins -116 degrees [facility] Ventricular Rate 75 BPM [facility] th Normal sinus rhythm ST & T wave abnormality, consider inferior ischemia ST & T wave abnormality, consider anterolateral ischemia Prolonged QT Abnormal ECG ECG Cart Interpretation see physician note for interpretation. Confirmed by Yajaira Hernandez ([id number]) on 02/16/2025 5:24:09 PM MUSE [facility] TROPONIN (ONCE)on 02-16-2025 BASELINE TROPONIN T NG/L 40 ng/L Off scale high <=14 [facility] Comment on above: Performed By: #### L [id number] ####MH LAB [address] [place], [place] [address] Maurice Coello M.D. [id number] TROPONIN T INTERPRETATION Possible acute cardiac injury. Normal [facility] Comment on above: Performed By: #### L [id number] ####MH LAB [address] [place], [place] [address] Maurice Coello M.D. [id number] Troponin (Once)on 02-16-2025 Interpretation and review of laboratory results Abnormal [facility] Troponin T 40 ng/L Critically high NINF - 14 ng/L [facility] Troponin T Interpretation Possible acute cardiac injury. 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 Allowing for AP portable technique, the heart size is borderline. There are calcified right upper lobe pulmonary nodules. There is no focal lung consolidation. There is no pneumothorax or pleural effusion. IMPRESSION: Old granulomatous disease. Borderline heart size. No acute consolidation. Workstation ID: [id number] Dictated by: RIVAS KHAN on [place] Feb 16, 2025 4:39:53 PM EDT Transcribed by: RIVAS KHAN on [place] Feb 16, 2025 4:39:53 PM EDT Finalized by: RIVAS KHAN on [place] Feb 16, 2025 4:39:53 PM EDT [facility] Comment on above: Order Comment: [...] size. No acute consolidation. Workstation ID: [id number] GE RIS EXAMINATION: XR CHEST PA/AP HISTORY: ORDERING SYSTEM PROVIDED HISTORY: Shortness of breath, TECHNOLOGIST PROVIDED HISTORY: Illness/Other Reason for exam: sob Cancer History: unknown Surgery, RadiationHistory: cholecystectomy, hysterectomy, oophrectomy, left knee replacement Encounter Type: Ongoing Additional signs and symptoms: contact iso;ation ORDERING SYSTEM PROVIDED DIAGNOSIS CODES: J96.20 Acute on chronic respiratory failure, unspecified whether with hypoxia or hypercapnia ([facility]) I50.9 Acute on chronic congestive heart failure, unspecified heart failure type ([facility]) R65.10 SIRS (systemic inflammatory response syndrome) ([facility]) J18.9 Pneumonia N18.9 CKD (chronic kidney disease) J44.1 Acute exacerbation of chronic obstructive pulmonary disease (COPD) ([facility]) R74.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 Allowing for AP portable technique, the heart size is borderline. There are calcified right upper lobe pulmonary nodules. There is no focal lung consolidation. There is no pneumothorax or pleural effusion. KEARA Khan, Rivas Blevins MD - 02/16/2025 EXAMINATION: XR CHEST PA/AP HISTORY: ORDERING SYSTEM PROVIDED HISTORY: Shortness of breath, TECHNOLOGIST PROVIDED HISTORY: Illness/Other Reason for exam: sob Cancer History: unknown Surgery, RadiationHistory: cholecystectomy, hysterectomy, oophrectomy, left knee replacement Encounter Type: Ongoing Additional signs and symptoms: contact iso;ation ORDERING SYSTEM PROVIDED DIAGNOSIS CODES: J96.20 Acute on chronic respiratory failure, unspecified whether with hypoxia or hypercapnia ([facility]) I50.9 Acute on chronic congestive heart failure, unspecified heart failure type ([facility]) R65.10 SIRS (systemic inflammatory response syndrome) ([facility]) J18.9 Pneumonia N18.9 CKD (chronic kidney disease) J44.1 Acute exacerbation of chronic obstructive pulmonary disease (COPD) ([facility]) R74.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 Allowing for AP portable technique, the heart size is borderline. There are calcified right upper lobe pulmonary nodules. There is no focal lung consolidation. There is no pneumothorax or pleural effusion. IMPRESSION: Old granulomatous disease. Borderline heart size. No acute consolidation. Workstation ID: [id number] [facility] Radiology Study observation (narrative) XR Chest PA and Abdomen APOr dered By: Rivas Khan on 02-16-2025 [facility] Work Phone: BASIC METABOLIC PANELon 02-04 Anion gap [Moles/Vol] 15 mmol/L Normal 10-[address] [facility] Comment on above: Order Comment: [facility] has implemented the eGFR calculation approach that does not have a coefficient for race that conforms to the NKF-ASN Task Force Recommendations. Performed By: #### 4 [id number] #### MH LAB [address] [place], [place] [address] Maurice Coello M.D. [id number] Calcium [Mass/Vol] 7.9 mg/dL Low 8.4-10.2 [facility] Comment on above: Order Comment: [facility] has implemented the eGFR calculation approach that does not have a coefficient for race that conforms to the NKF-ASN Task Force Recommendations. Performed By: #### 4 [id number] #### LAB [address] [place] [address] Maurice Coello M.D. [id number] Chloride [Moles/Vol] 98 mmol/L Normal 98-108 [facility] Comment on above: Order Comment: [facility] has implemented the eGFR calculation approach that does not have a coefficient for race that conforms to the NKF-ASN Task Force Recommendations. Performed By: #### 4 [id number] #### LAB [address] [place] [address] Maurice Coello M.D. [id number] Creatinine [Mass/Vol] 1.54 mg/dL High 0.60-1.[address] [facility] Comment on above: Order Comment: [facility] has implemented the eGFR calculation approach that does not have a coefficient for race that conforms to the NKF-ASN Task Force Recommendations. Performed By: #### 4 6124 #### LAB [address] [place] [address] Maurice Coello M.D. [id number] EGFR 37 mL/min/1.73 m2 Low >=60 [facility] Comment on above: Order Comment: [facility] has implemented the eGFR calculation approach that does not have a coefficient for race that conforms to the NKF-ASN Task Force Recommendations. Result Comment: Ericka mated GFR was calculated using the 2020 CKD-EPI creatinine equation. Performed By: #### 4 6124 #### LAB [address] [place] [address] Maurice Coello M.D. [id number] Glucose [Mass/Vol] 137 mg/dL High 65-99 [facility] Comment on above: Order Comment: [facility] has implemented the eGFR calculation approach that does not have a coefficient for race that conforms to the NKF-ASN Task Force Recommendations. Performed By: #### 4 6124 #### LAB [address] [place] [address] Maurice Coello M.D. [id number] HCO3 (Bld) [Moles/Vol] 24 mmol/L Normal 21-32 [facility] Comment on above: Order Comment: [facility] has implemented the eGFR calculation approach that does not have a coefficient for race that conforms to the NKF-ASN Task Force Recommendations. Performed By: #### 4 [id number] #### LAB [address] [place] [address] Maurice Coello M.D. [id number] Potassium [Moles/Vol] 3.7 mmol/L Normal 3.5-5.[address] [facility] Comment on above: Order Comment: [facility] has implemented the eGFR calculation approach that does not have a coefficient for race that conforms to the NKF-ASN Task Force Recommendations. Performed By: #### 4 6124 #### LAB [address] [place] [address] Maurice Coello M.D. [id number] Sodium [Moles/Vol] 133 mmol/L Low 135-145 [facility] Comment on above: Order Comment: [facility] has implemented the eGFR calculation approach that does not have a coefficient for race that conforms to the NKF-ASN Task Force Recommendations. Performed By: #### 4 6124 #### LAB [address] [place] [address] Maurice Coello M.D. [id number] Urea nitrogen [Mass/Vol] 23 mg/dL Normal 8-25 [facility] Comment on above: Order Comment: [facility] has implemented the eGFR calculation approach that does not have a coefficient for race that conforms to the NKF-ASN Task Force Recommendations. Performed By: #### 4 6124 #### LAB [address] [place] [address] Maurice Coello M.D. [id number] Urea nitrogen/Creatinine [Mass ratio] 14.9 mg/mg Normal 10.0-20.0 [facility] Comment on above: Order Comment: [facility] has implemented the eGFR calculation approach that does not have a coefficient for race that conforms to the NKF-ASN Task Force Recommendations. Performed By: #### 4 6124 #### MH LAB [address] [place], [place] [address] Maurice Coello M.D. [id number] Bacteria identified Aer cx N om (Unsp spec)Ordered By: Amalia Kendall on 02-15-2025 [facility] Basic metabolic 2000 panelOr dered By: Alea Joseph on 02-15-2025 Anion gap [Moles/Vol] 15 mmol/L 10 - 2 0 mmol/L [facility] Calcium [Mass/Vol] 7.9 mg/dL Low 8.4 - 10. 2 mg/dL [facility] Chloride [Moles/Vol] 98 mmol/L 98 - 10 8 mmol/L [facility] Creatinine [Mass/Vol] 1.54 mg/dL High 0.60 - 1.20 mg/dL [facility] GFR/1.73 sq M.predicted CKD-EPI (S/P/Bld) [Vol rate/Area] 37 Low - PINF [facility] Comment on above: Estimated GFR was ca lculated using the 2020 CKD-EPI creatinine equation. Glucose [Mass/Vol] 137 mg/dL High 65 - 99 mg/dL [facility] HCO3 [Moles/Vol] 24 mmol/L 21 - 32 mmol/L [facility] Interpretation and review of laboratory results Abnormal [facility] Potassium [Moles/Vol] 3.7 mmol/L 3.5 - 5.1 mmol/L [facility] Sodium [Moles/Vol] 133 mmol/L Low 135 - 145 mmol/L [facility] Urea nitrogen [Mass/Vol] 23 mg/dL 8 - 25 mg/dL [facility] Urea nitrogen/Creatinine [Mass ratio] 14.9 mg/mg 10.0 - 20.0 [facility] has implemented the eGFR calculation approach that does not have a coefficient for race that conforms to the NKF-ASN Task Force Recommendations. [facility] CBC Auto Differentialon 02-04 Basophils (Bld) [#/Vol] 0.02 10*3/uL [facility] Basophils/100 WBC (Bld) 0.2 % [facility] Eosinophils (Bld) [#/Vol] 0.05 10*3/uL [facility] Eosinophils/100 WBC (Bld) 0.5 % [facility] Erythrocyte distribution width (RBC) [Entitic vol] 13.8 % 11.6 - 14.8 % [facility] Hematocrit (Bld) [Volume fraction] 31.4 % Low 36.0 - 46.0 % [facility] Hemoglobin (Bld) [Mass/Vol] 9.3 g/dL Low 12.0 - 16.0 g/dL [facility] Immature granulocytes (Bld) [#/Vol] 0.06 10*3/uL [facility] Immature granulocytes/100 WBC (Bld) 0.6 % [facility] Comment on above: The IG parameter is the percentage of metamyelocytes, myelocytes and promyelocytes. An immature granulocyte count (IG) of 1% or more suggests the possibility of infection, an IG count of 3% is very likely related to an infection. Interpretation and review of laboratory results Abnormal [facility] Lymphocytes (Bld) [#/Vol] 1.33 10*3/uL [facility] Lymphocytes/100 WBC (Bld) 12.3 % [facility] MCH (RBC) [Entitic mass] 25.8 pg Low 26.0 - 34.0 pg [facility] MCHC (RBC) [Mass/Vol] 29.6 g/dL Low 31.0 - 37.0 g/dL [facility] MCV (RBC) [Entitic vol] 87.2 fL 80.0 - 100.0 fL [facility] Monocytes (Bld) [#/Vol] 0.77 10*3/uL [facility] Monocytes/100 WBC (Bld) 7.1 % [facility] Neutrophils (Bld) [#/Vol] 8.55 10*3/uL High [facility] Neutrophils/100 WBC (Bld) 79.3 % [facility] Nucleated RBC (Bld) [#/Vol] 0 10*3/uL [facility] Nucleated RBC/100 WBC (Bld) [Ratio] 0 % [facility] Platelet mean volume (Bld) [Entitic vol] 10.1 fL 9.4 - 12.4 fL [facility] Platelets (Bld) [#/Vol] 233 10*3/uL [facility] RBC (Bld) [#/Vol] 3.6 10*6/uL Low [facility] WBC (Bld) [#/Vol] 10.78 10*3/uL [facility] CBC WITH AUTO DIFFERENTIALon 02-15-2025 AUTO NRBC 0.0 % Normal [facility] Comment on above: Performed By: #### L [id number] #### LAB [address] [place] [address] Maurice Coello M.D. [id number] AUTO NRBC ABS COUNT 0.00 K/mcL Normal 0.00-0.00 [facility] Comment on above: Performed By: #### L [id number] #### LAB [address] [place] [address] Maurice Coello M.D. [id number] BASOPHILS ABSOLUTE COUNT 0.02 K/mcL Normal 0.00-0.30 [facility] Comment on above: Performed By: #### L [id number] #### LAB [address] [place] [address] Maurice Coello M.D. [id number] Basophils/100 WBC (Bld) 0.2 % Normal [facility] Comment on above: Performed By: #### L [id number] #### LAB [address] [place] [address] Maurice Coello M.D. [id number] Eosinophils (Bld) [#/Vol] 0.05 10*3/uL Normal 0.00-0.50 [facility] Comment on above: Performed By: #### L [id number] #### LAB [address] [place] [address] Maurice Coello M.D. [id number] Eosinophils/100 WBC (Bld) 0.5 % Normal [facility] Comment on above: Performed By: #### L [id number] #### LAB [address] [place] [address] Maurice Coello M.D. [id number] Erythrocyte distribution width (RBC) [Ratio] 13.8 % Normal 11.6-14.8 [facility] Comment on above: Performed By: #### L [id number] #### LAB [address] [place] [address] Maurice Coello M.D. [id number] Hematocrit (Bld) [Volume fraction] 31.4 % Low 36.0-46.0 [facility] Comment on above: Performed By: #### L [id number] #### LAB [address] [place] [address] Maurice Coello M.D. [id number] Hemoglobin (Bld) [Mass/Vol] 9.3 g/dL Low 12.0-16.0 [facility] Comment on above: Performed By: #### L [id number] #### LAB [address] [place] [address] Maurice Coello M.D. [id number] IG ABSOLUTE 0.06 K/mcL Normal 0.00-0.30 [facility] Comment on above: Performed By: #### L [id number] #### LAB [address] [place] [address] Maurice Coello M.D. [id number] IG PERCENT 0.60 % [facility] Comment on above: Result Comment: The IG parameter is the percentage of metamyelocytes, myelocytes and promyelocytes. An immature granulocyte count (IG) of 1% or more suggests the possibility of infection, an IG count of 3% is very likely related to an infection. Performed By: #### L [id number] #### LAB [address] [place] [address] Maurice Coello M.D. [id number] Lymphocytes (Bld) [#/Vol] 1.33 10*3/uL Normal 0.90-4.00 [facility] Comment on above: Performed By: #### L [id number] #### LAB [address] [place] [address] Maurice Coello M.D. [id number] Lymphocytes/100 WBC (Bld) 12.3 % Normal [facility] Comment on above: Performed By: #### L [id number] #### LAB [address] [place] [address] Maurice Coello M.D. [id number] MCH (RBC) [Entitic mass] 25.8 pg Low 26.0-34.0 [facility] Comment on above: Performed By: #### L [id number] #### LAB [address] [place] [address] Maurice Coello M.D. [id number] MCV (RBC) [Entitic vol] 87.2 fL Normal 80.0-100.0 [facility] Comment on above: Performed By: #### L [id number] #### LAB [address] [place] [address] Maurice Coello M.D. [id number] MEAN CORPUSCULAR HEMOGLOBIN CONC 29.6 g/dL Low 31.0-37.0 [facility] Comment on above: Performed By: #### L [id number] #### LAB [address] [place] [address] Maurice Coello M.D. [id number] Monocytes (Bld) [#/Vol] 0.77 10*3/uL Normal 0.30-0.90 [facility] Comment on above: Performed By: #### L [id number] #### LAB [address] [place] [address] Maurice Coello M.D. [id number] Monocytes/100 WBC (Bld) 7.1 % Normal [facility] Comment on above: Performed By: #### L [id number] #### LAB [address] [place] [address] Maurice Coello M.D. [id number] NEUTROPHILS ABSOLUTE COUNT 8.55 K/mcL High 1.70-7.00 [facility] Comment on above: Performed By: #### L [id number] #### LAB [address] [place] [address] Maurice Coello M.D. [id number] Neutrophils/100 WBC (Bld) 79.3 % Normal [facility] Comment on above: Performed By: #### L [id number] #### LAB [address] [place] [address] Maurice Coello M.D. [id number] Platelet mean volume (Bld) [Entitic vol] 10.1 fL Normal 9.4-12.4 [facility] Comment on above: Performed By: #### L [id number] ####MH LAB [address] [place] [address] Maurice Coello M.D. [id number] Platelets (Bld) [#/Vol] 233 10*3/uL Normal 150-400 [facility] Comment on above: Performed By: #### L [id number] ####MH LAB [address] [place] [address] Maurice Coello M.D. [id number] RBC (Bld) [#/Vol] 3.60 10*6/uL Low 4.00-5.20 [facility] Comment on above: Performed By: #### L [id number] ####MH LAB [address] [place] [address] Maurice Coello M.D. [id number] WBC (Bld) [#/Vol] 10.78 10*3/uL Normal 4.50-11.00 [facility] Comment on above: Performed By: #### L [id number] ####MH LAB [address] [place] [address] Maurice Coello M.D. [id number] CK [Catalytic activity/Vol]o n 02-15-2025 Interpretation and review of laboratory results Abnormal [facility] CPKon 02-15-2025 CPK 70895 U/L High 40-170 [facility] Comment on above: Performed By: #### 4 [id number] ####MH LAB [address] [place] [address] Maurice Coello M.D. [id number] CPK NO MBon 02-15-2025 CK [Catalytic activity/Vol] 61542 U/L High 40 - 170 U/L [facility] EKG 12-leadon 02-15-2025 Atrial Rate 94 BPM [facility] P Wiggins 71 degrees [facility] P-R Interval 144 ms [facility] Q-T Interval 330 ms [facility] QRS Duration 90 ms [facility] QTC Calculation (Bezet) 412 ms [facility] R Wiggins -12 degrees [facility] T Wiggins 63 degrees [facility] Ventricular Rate 94 BPM [facility] Normal sinus rhythm Normal ECG ECG Cart Interpretation see physician note for interpretation. Confirmed by Yajaira Hernandez ([id number]) on 02/15/2025 12:15:20 PM MUSE [facility] Gastrointestinal pathogens D NA and RNA panel CATRINA+non-probe (Stl)Ordered By: Donna Melendez on 02-15-2025 Adenovirus 40+41 DNA CATRINA+non-probe Ql (Stl) Not detected Not Detected [facility] Astrovirus subtypes 1-8 RNA CATRINA+non-probe Ql (Stl) Not detected Not Detected [facility] C. cayetanensis DNA CATRINA+non-probe Ql (Stl) Not detected Not Detected [facility] C. coli+jejuni+upsaliensis DNA CATRINA+non-probe Ql (Stl) Not detected Not Detected [facility] C. difficile toxin A+B tcdA+tcdB genes CATRINA+non-probe Ql (Stl) Not detected Not Detected [facility] Cryptosporidium sp DNA CATRINA+non-probe Ql (Stl) Not detected Not Detected [facility] E. coli enteroaggregative Clayton plasmid aggR+aatA genes CATRINA+non-probe Ql (Stl) Detected Abnormal Not Detected [facility] Comment on above: EPEC is associated w ith acute or prolonged watery diarrhea with vomiting and fever. EPEC carriage may also be asymptomatic. Treatment with antibiotics is not recommended. E. coli enteropathogenic eae gene CATRINA+non-probe Ql (Stl) Not detected Not Detected [facility] E. coli enterotoxigenic ltA+st1a+st1b genes CATRINA+non-probe Ql (Stl) Not detected Not Detected [facility] E. coli stx1+stx2 genes CATRINA+non-probe Ql (Stl) Not detected Not Detected [facility] E. histolytica DNA CATRINA+non-probe Ql (Stl) Not detected Not Detected [facility] G. lamblia DNA CATRINA+non-probe Ql (Stl) Not detected Not Detected [facility] Interpretation and review of laboratory results Abnormal [facility] Norovirus genogroup I+II RNA CATRINA+non-probe Ql (Stl) Detected Abnormal Not Detected [facility] Comment on above: Highly contagious; N orovirus [...] CATRINA+non-probe Ql (Stl) [facility] Rot[facility] A RNA CATRINA+non-probe Ql (Stl) Not detected [facility]. enterica+bongori DNA CATRINA+non-probe Ql (Stl) Not detected [facility] Sapovirus genogroups I+II+IV+V RNA CATRINA+non-probe Ql (Stl) Not detected [facility] Shigella species+EIEC invasion plasmid antigen H ipaH gene CATRINA+non-probe Ql (Stl) Not detected Not Detected [facility] V. cholerae DNA CATRINA+non-probe Ql (Stl) Not detected [facility] V. cholerae+parahaemolytic us+vulnificus DNA CATRINA+non-probe Ql (Stl) Not detected Not Detected [facility] Y. enterocolitica DNA CATRINA+non-probe Ql (Stl) Not detected [facility] Results of PCR testi ng [...] infections as well as select bacterial infections. [facility] Glucose (Bld) [Mass/Vol]on 0 02-15-2025 Glucose [Mass/Vol] 172 mg/dL High 65 - 99 mg/dL [facility] Interpretation and review of laboratory results Abnormal [facility] Glucose [Mass/Vol] 173 mg/dL High 65 - 99 mg/dL [facility] Interpretation and review of laboratory results Abnormal [facility] Glucose [Mass/Vol] 155 mg/dL High 65 - 99 mg/dL [facility] Interpretation and review of laboratory results Abnormal [facility] Glucose [Mass/Vol] 140 mg/dL High 65 - 99 mg/dL [facility] Interpretation and review of laboratory results Abnormal [facility] Glucose [Mass/Vol] 211 mg/dL High 65 - 99 mg/dL [facility] Interpretation and review of laboratory results Abnormal [facility] MAGNESIUM LEVELon 02-15-2025 Magnesium [Mass/Vol] 1.7 mg/dL Normal 1.6-2.4 [facility] Comment on above: Performed By: #### 4 [id number] ####[facility] [address] [address] Maurice Coello M.D. [id number] Magnesium Levelon 02-15-2025 Magnesium [Mass/Vol] 1.7 mg/dL 1.6 - 2 .4 mg/dL [facility] Magnesium [Mass/Vol]on 02-15 Interpretation and review of laboratory results Normal [facility] No Panel InformationOrdered By: Alea Joseph on 02-15-2025 [facility] POC [facility] Glucose [Mass/Vol] 172 mg/dL High [address] [place] [address] Comment on above: Performed By: #### L [id number] #### [facility] [address] [address] Maurice Coello M.D. [id number] Glucose [Mass/Vol] 173 mg/dL [address] Comment on above: Performed By: #### L [id number] #### [facility] [address] [address] Maurice Coello M.D. [id number] Glucose [Mass/Vol] 155 mg/dL [address] Comment on above: Performed By: #### L [id number] #### [facility] [address] [address] Maurice Coello M.D. [id number] Glucose [Mass/Vol] 140 mg/dL [address] Comment on above: Performed By: #### L [id number] #### [facility] [address] [address] Maurice Coello M.D. [id number] Glucose [Mass/Vol] 211 mg/dL High 65-99 [facility] Comment on above: Performed By: #### L [id number] #### [facility] [address] [place], [place] [address] Maurice Coello M.D. [id number] STOOL/GI PCR PANELon 025 STOOL/GI PCR PANEL [...] Detected SAPOVIRUS Not Detected Abnormal Not Detected [facility] Comment on above: Order Comment: Resul [...] select bacterial infections. Performed By: #### L [id number] #### LAB [address] [place], [place] [address] Maurice Coello M.D. [id number] Urine Aerobic CultureOrdered By: Amalia Kendall on 02-15-2025 Bacteria identified Aer cx Nom (Unsp spec) < 10,000 CFU/mL of normal urogenital microbiota [facility] BASIC METABOLIC PANELon 02-04 Anion gap [Moles/Vol] 20 mmol/L Normal 10-[address] [facility] Comment on above: Order Comment: Injur y/Trauma or Illness?:Illness/Other How long have you had these symptoms (acute/chronic)?:Chronic Reason for exam?:A-fib [facility] TO READ Type of Exam?:Initial Additional signs and symptoms?:n Performed By: #### 4 [id number] #### LAB [address] [address] Maurice Coello M.D. [id number] Calcium [Mass/Vol] 9.1 mg/dL Normal 8.4-10.2 [facility] Comment on above: Order Comment: Injur y/Trauma or Illness?:Illness/Other How long have you had these symptoms (acute/chronic)?:Chronic Reason for exam?:A-fib [facility] TO READ Type of Exam?:Initial Additional signs and symptoms?:n Performed By: #### 4 [id number] #### LAB [address] [address] Maurice Coello M.D. [id number] Chloride [Moles/Vol] 95 mmol/L Low 98-108 [facility] Comment on above: Order Comment: Injur y/Trauma or Illness?:Illness/Other How long have you had these symptoms (acute/chronic)?:Chronic Reason for exam?:A-fib [facility] TO READ Type of Exam?:Initial Additional signs and symptoms?:n Performed By: #### 4 [id number] #### LAB [address] [address] Maurice Coello M.D. [id number] Creatinine [Mass/Vol] 1.78 mg/dL High 0.60-1.[address] [facility] Comment on above: Order Comment: Injur y/Trauma or Illness?:Illness/Other How long have you had these symptoms (acute/chronic)?:Chronic Reason for exam?:A-fib [facility] TO READ Type of Exam?:Initial Additional signs and symptoms?:n Performed By: #### 4 [id number] #### LAB [address] [address] Maurice Coello M.D. [id number] EGFR 31 mL/min/1.73 m2 Low >=60 [facility] Comment on above: Order Comment: Injur y/Trauma or Illness?:Illness/Other How long have you had these symptoms (acute/chronic)?:Chronic Reason for exam?:A-fib [facility] TO READ Type of Exam?:Initial Additional signs and symptoms?:n Result Comment: Ericka mated GFR was calculated using the 2020 CKD-EPI creatinine equation. Performed By: #### 4 [id number] #### LAB [address] [place], [place] [address] Maurice Coello M.D. [id number] Glucose [Mass/Vol] 194 mg/dL High 65-99 [facility] Comment on above: Order Comment: Injur y/Trauma or Illness?:Illness/Other How long have you had these symptoms (acute/chronic)?:Chronic Reason for exam?:A-fib [facility] TO READ Type of Exam?:Initial Additional signs and symptoms?:n Performed By: #### 4 6124 #### LAB [address] [place], [place] [address] Maurice Coello M.D. [id number] HCO3 (Bld) [Moles/Vol] 23 mmol/L Normal 21-32 [facility] Comment on above: Order Comment: Injur y/Trauma or Illness?:Illness/Other How long have you had these symptoms (acute/chronic)?:Chronic Reason for exam?:A-fib [facility] TO READ Type of Exam?:Initial Additional signs and symptoms?:n Performed By: #### 4 6124 #### LAB [address] [address] Maurice Coello M.D. [id number] Potassium [Moles/Vol] 4.9 mmol/L Normal 3.5-5.[address] [facility] Comment on above: Order Comment: Injur y/Trauma or Illness?:Illness/Other How long have you had these symptoms (acute/chronic)?:Chronic Reason for exam?:A-fib [facility] TO READ Type of Exam?:Initial Additional signs and symptoms?:n Performed By: #### 4 6124 #### LAB [address] [address] Maurice Coello M.D. [id number] Sodium [Moles/Vol] 133 mmol/L Low 135-145 [facility] Comment on above: Order Comment: Injur y/Trauma or Illness?:Illness/Other How long have you had these symptoms (acute/chronic)?:Chronic Reason for exam?:A-fib [facility] TO READ Type of Exam?:Initial Additional signs and symptoms?:n Performed By: #### 4 6124 #### LAB [address] [address] Maurice Coello M.D. [id number] Urea nitrogen [Mass/Vol] 20 mg/dL Normal 8-25 [facility] Comment on above: Order Comment: Injur y/Trauma or Illness?:Illness/Other How long have you had these symptoms (acute/chronic)?:Chronic Reason for exam?:A-fib [facility] TO READ Type of Exam?:Initial Additional signs and symptoms?:n Performed By: #### 4 6176 #### LAB [address] [address] Maurice Coello M.D. [id number] Urea nitrogen/Creatinine [Mass ratio] 11.2 mg/mg Normal 10.0-20.0 [facility] Comment on above: Order Comment: Injur y/Trauma or Illness?:Illness/Other How long have you had these symptoms (acute/chronic)?:Chronic Reason for exam?:A-fib [facility] TO READ Type of Exam?:Initial Additional signs and symptoms?:n Performed By: #### 4 6124 #### LAB [address] [place], [place] [address] Maurice Coello M.D. [id number] Basic metabolic 2000 panelon 02-14-2025 Anion gap [Moles/Vol] 20 mmol/L 10 - 2 0 mmol/L [facility] Calcium [Mass/Vol] 9.1 mg/dL 8.4 - 10. 2 mg/dL [facility] Chloride [Moles/Vol] 95 mmol/L Low 98 - 10 8 mmol/L [facility] Creatinine [Mass/Vol] 1.78 mg/dL High 0.60 - 1.20 mg/dL [facility] GFR/1.73 sq M.predicted CKD-EPI (S/P/Bld) [Vol rate/Area] 31 Low - PINF [facility] Comment on above: Estimated GFR was ca lculated using the 2020 CKD-EPI creatinine equation. Glucose [Mass/Vol] 194 mg/dL High 65 - 99 mg/dL [facility]Health HCO3 [Moles/Vol] 23 mmol/L 21 - 32 mmol/L [facility] Potassium [Moles/Vol] 4.9 mmol/L 3.5 - 5.1 mmol/L [facility] Sodium [Moles/Vol] 133 mmol/L Low 135 - 145 mmol/L [facility] Urea nitrogen [Mass/Vol] 20 mg/dL 8 - 25 mg/dL [facility] Urea nitrogen/Creatinine [Mass ratio] 11.2 mg/mg 10.0 - 20.0 [facility] has implemented the eGFR calculation approach that does not have a coefficient for race that conforms to the NKF-ASN Task Force Recommendations. [facility] CBC Auto Differentialon 02-04 Basophils (Bld) [#/Vol] 0.01 10*3/uL [facility] Basophils/100 WBC (Bld) 0.1 % [facility] Eosinophils (Bld) [#/Vol] 0 10*3/uL [facility] Eosinophils/100 WBC (Bld) 0 % [facility] Erythrocyte distribution width (RBC) [Entitic vol] 13.7 % 11.6 - 14.8 % [facility] Hematocrit (Bld) [Volume fraction] 36.6 % 36.0 - 46.0 % [facility] Hemoglobin (Bld) [Mass/Vol] 11.3 g/dL Low 12.0 - 16.0 g/dL [facility] Immature granulocytes (Bld) [#/Vol] 0.03 10*3/uL [facility] Immature granulocytes/100 WBC (Bld) 0.4 % [facility] Comment on above: The IG parameter is the percentage of metamyelocytes, myelocytes and promyelocytes. An immature granulocyte count (IG) of 1% or more suggests the possibility of infection, an IG count of 3% is very likely related to an infection. Interpretation and review of laboratory results Abnormal [facility] Lymphocytes (Bld) [#/Vol] 0.76 10*3/uL Low [facility] Lymphocytes/100 WBC (Bld) 9.6 % [facility] MCH (RBC) [Entitic mass] 25.7 pg Low 26.0 - 34.0 pg [facility] MCHC (RBC) [Mass/Vol] 30.9 g/dL Low 31.0 - 37.0 g/dL [facility] MCV (RBC) [Entitic vol] 83.4 fL 80.0 - 100.0 fL [facility] Monocytes (Bld) [#/Vol] 0.08 10*3/uL Low [facility] Monocytes/100 WBC (Bld) 1 % [facility] Neutrophils (Bld) [#/Vol] 7.04 10*3/uL High [facility] Neutrophils/100 WBC (Bld) 88.9 % [facility] Nucleated RBC (Bld) [#/Vol] 0 10*3/uL [facility] Nucleated RBC/100 WBC (Bld) [Ratio] 0 % [facility] Platelet mean volume (Bld) [Entitic vol] 10.2 fL 9.4 - 12.4 fL [facility] Platelets (Bld) [#/Vol] 278 10*3/uL [facility] RBC (Bld) [#/Vol] 4.39 10*6/uL [facility] WBC (Bld) [#/Vol] 7.92 10*3/uL [facility] CBC WITH AUTO DIFFERENTIALon 02-14-2025 AUTO NRBC 0.0 % Normal [facility] Comment on above: Performed By: #### L [id number] #### LAB [address] [address] Maurice Coello M.D. [id number] AUTO NRBC ABS COUNT 0.00 K/mcL Normal 0.00-0.00 [facility] Comment on above: Performed By: #### L [id number] #### LAB [address] [address] Maurice Coello M.D. [id number] BASOPHILS ABSOLUTE COUNT 0.01 K/mcL Normal 0.00-0.30 [facility] Comment on above: Performed By: #### L [id number] #### LAB [address] [address] Maurice Coello M.D. [id number] Basophils/100 WBC (Bld) 0.1 % Normal [facility] Comment on above: Performed By: #### L [id number] #### LAB [address] [address] Maurice Coello M.D. [id number] Eosinophils (Bld) [#/Vol] 0.00 10*3/uL Normal 0.00-0.50 [facility] Comment on above: Performed By: #### L [id number] #### LAB [address] [place] [address] Maurice Coello M.D. [id number] Eosinophils/100 WBC (Bld) 0.0 % Normal [facility] Comment on above: Performed By: #### L [id number] #### LAB [address] [address] Maurice Coello M.D. [id number] Erythrocyte distribution width (RBC) [Ratio] 13.7 % Normal 11.6-14.8 [facility] Comment on above: Performed By: #### L [id number] #### LAB [address] [place] [address] Maurice Coello M.D. [id number] Hematocrit (Bld) [Volume fraction] 36.6 % Normal 36.0-46.0 [facility] Comment on above: Performed By: #### L [id number] #### LAB [address] [address] Maurice Coello M.D. [id number] Hemoglobin (Bld) [Mass/Vol] 11.3 g/dL Low 12.0-16.0 [facility] Comment on above: Performed By: #### L [id number] #### LAB [address] [address] Maurice Coello M.D. [id number] IG ABSOLUTE 0.03 K/mcL Normal 0.00-0.30 [facility] Comment on above: Performed By: #### L [id number] #### LAB [address] [address] Maurice Coello M.D. [id number] IG PERCENT 0.40 % Normal [facility] Comment on above: Result Comment: The IG parameter is the percentage of metamyelocytes, myelocytes and promyelocytes. An immature granulocyte count (IG) of 1% or more suggests the possibility of infection, an IG count of 3% is very likely related to an infection. Performed By: #### L [id number] #### LAB [address] [place] [address] Maurice Coello M.D. [id number] Lymphocytes (Bld) [#/Vol] 0.76 10*3/uL Low 0.90-4.00 [facility] Comment on above: Performed By: #### L [id number] #### LAB [address] [address] Maurice Coello M.D. [id number] Lymphocytes/100 WBC (Bld) 9.6 % [facility] Comment on above: Performed By: #### L [id number] #### LAB [address] [place] [address] Maurice Coello M.D. [id number] MCH (RBC) [Entitic mass] 25.7 pg Low 26.0-34.0 [facility] Comment on above: Performed By: #### L [id number] #### LAB [address] [address] Maurice Coello M.D. [id number] MCV (RBC) [Entitic vol] 83.4 fL Normal 80.0-100.0 [facility] Comment on above: Performed By: #### L [id number] #### LAB [address] [address] Maurice Coello M.D. [id number] MEAN CORPUSCULAR HEMOGLOBIN CONC 30.9 g/dL Low 31.0-37.0 [facility] Comment on above: Performed By: #### L [id number] #### LAB [address] [address] Maurice Coello M.D. [id number] Monocytes (Bld) [#/Vol] 0.08 10*3/uL Low 0.30-0.90 [facility] Comment on above: Performed By: #### L [id number] #### LAB [address] [address] Maurice Coello M.D. [id number] Monocytes/100 WBC (Bld) 1.0 % Normal [facility] Comment on above: Performed By: #### L [id number] #### LAB [address] [address] Maurice Coello M.D. [id number] NEUTROPHILS ABSOLUTE COUNT 7.04 K/mcL High 1.70-7.00 [facility] Comment on above: Performed By: #### L [id number] #### LAB [address] [address] Maurice Coello M.D. [id number] Neutrophils/100 WBC (Bld) 88.9 % Normal [facility] Comment on above: Performed By: #### L [id number] #### LAB [address] [address] Maurice Coello M.D. [id number] Platelet mean volume (Bld) [Entitic vol] 10.2 fL Normal 9.4-12.4 [facility] Comment on above: Performed By: #### L [id number] ####[facility] [address] [address] Maurice Coello M.D. [id number] Platelets (Bld) [#/Vol] 278 10*3/uL Normal 150-400 [facility] Comment on above: Performed By: #### L [id number] ####[facility] LAB [address] [address] Maurice Coello M.D. [id number] RBC (Bld) [#/Vol] 4.39 10*6/uL Normal 4.00-5.20 [facility] Comment on above: Performed By: #### L [id number] ####[facility] LAB [address] [address] Maurice Coello M.D. [id number] WBC (Bld) [#/Vol] 7.92 10*3/uL Normal 4.50-11.00 [facility] Comment on above: Performed By: #### L [id number] ####[facility] LAB [address] [address] Maurice Coello M.D. [id number] CK [Catalytic activity/Vol]o n 02-14-2025 Interpretation and review of laboratory results Abnormal [facility] CPKon 02-14-2025 CPK 63412 U/L High 40-170 [facility] Comment on above: Performed By: #### 4 [id number] #### LAB [address] [address] Maurice Coello M.D. [id number] CPK NO MBon 02-14-2025 CK [Catalytic activity/Vol] 53797 U/L High 40 - 170 U/L [facility] EKGon 02-14-2025 [facility] MAGNESIUM LEVELon 02-14-2025 Magnesium [Mass/Vol] 1.8 mg/dL Normal 1.6-2.4 [facility] Comment on above: Performed By: #### 4 [id number] #### LAB [address] [address] Maurice Coello M.D. [id number] MRSA DNA AMPLIFIED PROBEon 0 02-14-2025 MRSA DNA AMPLIFIED PROBE Negative Normal Not Detected, MRSA NEGATIVE [facility] Comment on above: Performed By: #### 4 [id number] #### LAB [address] [place], [place] [address] Maurice Coello M.D. [id number] MRSA DNA Amplified ProbeOrde red By: Jonatan West on 02-14-2025 MRSA DNA CATRINA+probe Ql (Unsp spec) Negative Not Detected, MRSA NEGATIVE [facility] MRSA DNA CATRINA+probe Ql (Unsp spec)Ordered By: Jonatan West on 02-14-2025 Interpretation and review of laboratory results Normal [facility] Magnesiumon 02-14-2025 Magnesium [Mass/Vol] 1.8 mg/dL 1.6 - 2 .4 mg/dL [facility] Magnesium [Mass/Vol]on 02-14 Interpretation and review of laboratory results Normal [facility] No Panel Informationon 02-14 Interpretation and review of laboratory results Abnormal [facility] TROPONIN X 2 (NOW AND REPEAT IN 2 HOURS)on 02-14-2025 TROPONIN T DELTA % NG/L -23 % Off scale low <20 % of Baseline Troponin [facility] Comment on above: Performed By: #### L [id number] #### [facility] [address] [place], [place] [address] Maurice Coello M.D. [id number] TROPONIN T DELTA CHANGE INTERPRETATION Probable acute injury or myocardial infarction. Normal [facility] Comment on above: Performed By: #### L [id number] #### [facility] [address] [address] Maurice Coello M.D. [id number] TROPONIN T NG/L 76 ng/L Off scale high <=14 [facility] Comment on above: Performed By: #### L [id number] #### [facility] [address] [address] Maurice Coello M.D. [id number] TSHon 02-14-2025 TSH Qn 0.13 m[IU]/L Low 0.27-4.20 [facility] Comment on above: Performed By: #### 4 6613 ####[facility] LAB [address] [place], [place] [address] Maurice Coello M.D. [id number] TSH DL <= 0.005 mIU/L Qnon 0 02-14-2025 TSH Qn 0.13 m[IU]/L Low [facility] Troponin x 2 (Now and Repeat in 2 Hours)on 02-14-2025 Interp Troponin T Delta Change Probable acute injury or myocardial infarction. [facility] Interpretation and review of laboratory results Abnormal [facility] Troponin T Delta % -23 % Critically low <20% of Baseline Troponin [facility] Troponin T.cardiac High sensitivity method [Mass/Vol] 76 ng/L Critically high NINF - 14 ng/L [facility] Interp Troponin T Delta Change Probable non-acute cardiac injury or late presentation of acute injury. [facility] Interpretation and review of laboratory results Abnormal [facility] Troponin T Delta % -16 % <20% of Baseline Troponin [facility] Troponin T.cardiac High sensitivity method [Mass/Vol] 83 ng/L Critically high NINF - 14 ng/L [facility] BASIC METABOLIC PANELon 02-04 Anion gap [Moles/Vol] 18 mmol/L Normal 10-[address] [facility] Comment on above: Order Comment: [facility] has implemented the eGFR calculation approach that does not have a coefficient for race that conforms to the NKF-ASN Task Force Recommendations. Performed By: #### 4 6124 #### LAB [address] [place], [place] [address] Maurice Coello M.D. [id number] Calcium [Mass/Vol] 9.7 mg/dL Normal 8.4-10.2 [facility] Comment on above: Order Comment: [facility] has implemented the eGFR calculation approach that does not have a coefficient for race that conforms to the NKF-ASN Task Force Recommendations. Performed By: #### 4 6124 #### LAB [address] [place], [place] [address] Maurice Coello M.D. [id number] Chloride [Moles/Vol] 95 mmol/L Low 98-108 [facility] Comment on above: Order Comment: [facility] has implemented the eGFR calculation approach that does not have a coefficient for race that conforms to the NKF-ASN Task Force Recommendations. Performed By: #### 4 6124 #### LAB [address] [address] Maurice Coello M.D. [id number] Creatinine [Mass/Vol] 1.66 mg/dL High 0.60-1.[address] [facility] Comment on above: Order Comment: [facility] has implemented the eGFR calculation approach that does not have a coefficient for race that conforms to the NKF-ASN Task Force Recommendations. Performed By: #### 4 6124 #### MH LAB [address] [address] Maurice Coello M.D. [id number] EGFR 34 mL/min/1.73 m2 Low >=60 [facility] Comment on above: Order Comment: [facility] has implemented the eGFR calculation approach that does not have a coefficient for race that conforms to the NKF-ASN Task Force Recommendations. Result Comment: Ericka mated GFR was calculated using the 2020 CKD-EPI creatinine equation. Performed By: #### 4 6124 #### LAB [address] [address] Maurice Coello M.D. [id number] Glucose [Mass/Vol] 128 mg/dL High 65-99 [facility] Comment on above: Order Comment: [facility] has implemented the eGFR calculation approach that does not have a coefficient for race that conforms to the NKF-ASN Task Force Recommendations. Performed By: #### 4 6124 #### LAB [address] [address] Maurice Coello M.D. [id number] HCO3 (Bld) [Moles/Vol] 27 mmol/L Normal 21-32 [facility] Comment on above: Order Comment: [facility] has implemented the eGFR calculation approach that does not have a coefficient for race that conforms to the NKF-ASN Task Force Recommendations. Performed By: #### 4 6124 #### LAB [address] [address] Maurice Coello M.D. [id number] Potassium [Moles/Vol] 4.5 mmol/L Normal 3.5-5.[address] [facility] Comment on above: Order Comment: [facility] has implemented the eGFR calculation approach that does not have a coefficient for race that conforms to the NKF-ASN Task Force Recommendations. Performed By: #### 4 6124 #### LAB [address] [place] [address] Maurice Coello M.D. [id number] Sodium [Moles/Vol] 135 mmol/L Normal 135-145 [facility] Comment on above: Order Comment: [facility] has implemented the eGFR calculation approach that does not have a coefficient for race that conforms to the NKF-ASN Task Force Recommendations. Performed By: #### 4 6124 #### LAB [address] [address] Maurice Coello M.D. [id number] Urea nitrogen [Mass/Vol] 18 mg/dL Normal 8-25 [facility] Comment on above: Order Comment: [facility] [place] [facility] has implemented the eGFR calculation approach that does not have a coefficient for race that conforms to the NKF-ASN Task Force Recommendations. Performed By: #### 4 [id number] #### LAB [address] [address] Maurice Coello M.D. [id number] Urea nitrogen/Creatinine [Mass ratio] 10.8 mg/mg Normal 10.0-20.0 [facility] Comment on above: Order Comment: [facility] has implemented the eGFR calculation approach that does not have a coefficient for race that conforms to the NKF-ASN Task Force Recommendations. Performed By: #### 4 [id number] #### MH LAB [address] [address] Maurice Coello M.D. [id number] BLOOD CULTURE AEROBIC/ANAERO BICon 02-13-2025 BLOOD CULTURE AEROBIC/ANAEROBIC BLOOD CULTURE No Growth after 5 days [facility] Comment on above: Performed By: #### 4 [id number] #### LAB [address] [address] Maurice Coello M.D. [id number] BNP (NT Pro BNP)on Natriuretic peptide.B prohormone N-Terminal [Mass/Vol] 3931 pg/mL High 0 - 300 pg/mL [facility] Basic metabolic 2000 panelon 02-13-2025 Anion gap [Moles/Vol] 18 mmol/L 10 - 2 0 mmol/L [facility] Calcium [Mass/Vol] 9.7 mg/dL 8.4 - 10. 2 mg/dL [facility] Chloride [Moles/Vol] 95 mmol/L Low 98 - 10 8 mmol/L [facility] Creatinine [Mass/Vol] 1.66 mg/dL High 0.60 - 1.20 mg/dL [facility] GFR/1.73 sq M.predicted CKD-EPI (S/P/Bld) [Vol rate/Area] 34 Low - PINF [facility] Comment on above: Estimated GFR was ca lculated using the 2020 CKD-EPI creatinine equation. Glucose [Mass/Vol] 128 mg/dL High 65 - 99 mg/dL [facility] HCO3 [Moles/Vol] 27 mmol/L 21 - 32 mmol/L [facility] Potassium [Moles/Vol] 4.5 mmol/L 3.5 - 5.1 mmol/L [facility] Sodium [Moles/Vol] 135 mmol/L 135 - 145 mmol/L [facility] Urea nitrogen [Mass/Vol] 18 mg/dL 8 - 25 mg/dL [facility] Urea nitrogen/Creatinine [Mass ratio] 10.8 mg/mg 10.0 - 20.0 [facility] has implemented the eGFR calculation approach that does not have a coefficient for race that conforms to the NKF-ASN Task Force Recommendations. [facility] CBC Auto Differentialon 02-04 Basophils (Bld) [#/Vol] 0.04 10*3/uL [facility] Basophils/100 WBC (Bld) 0.4 % [facility] Eosinophils (Bld) [#/Vol] 0.01 10*3/uL [facility] Eosinophils/100 WBC (Bld) 0.1 % [facility] Erythrocyte distribution width (RBC) [Entitic vol] 13.7 % 11.6 - 14.8 % [facility] Hematocrit (Bld) [Volume fraction] 42.7 % 36.0 - 46.0 % [facility] Hemoglobin (Bld) [Mass/Vol] 13 g/dL 12.0 - 16.0 g/dL [facility] Immature granulocytes (Bld) [#/Vol] 0.05 10*3/uL [facility] Immature granulocytes/100 WBC (Bld) 0.4 % [facility] Comment on above: The IG parameter is the percentage of metamyelocytes, myelocytes and promyelocytes. An immature granulocyte count (IG) of 1% or more suggests the possibility of infection, an IG count of 3% is very likely related to an infection. Interpretation and review of laboratory results Abnormal [facility] Lymphocytes (Bld) [#/Vol] 0.93 10*3/uL [facility] Lymphocytes/100 WBC (Bld) 8.2 % [facility] MCH (RBC) [Entitic mass] 25.5 pg Low 26.0 - 34.0 pg [facility] MCHC (RBC) [Mass/Vol] 30.4 g/dL Low 31.0 - 37.0 g/dL [facility] MCV (RBC) [Entitic vol] 83.7 fL 80.0 - 100.0 fL [facility] Monocytes (Bld) [#/Vol] 0.55 10*3/uL [facility] Monocytes/100 WBC (Bld) 4.8 % [facility] Neutrophils (Bld) [#/Vol] 9.81 10*3/uL High [facility] Neutrophils/100 WBC (Bld) 86.1 % [facility] Nucleated RBC (Bld) [#/Vol] 0 10*3/uL [facility] Nucleated RBC/100 WBC (Bld) [Ratio] 0 % [facility] Platelet mean volume (Bld) [Entitic vol] 10.1 fL 9.4 - 12.4 fL [facility] Platelets (Bld) [#/Vol] 319 10*3/uL [facility] RBC (Bld) [#/Vol] 5.1 10*6/uL [facility] alth WBC (Bld) [#/Vol] 11.39 10*3/uL [facility] CBC WITH AUTO DIFFERENTIALon 02-13-2025 AUTO NRBC 0.0 % Normal [facility] Comment on above: Performed By: #### L [id number] ####MH LAB [address] [place], [place] [address] Maurice Coello M.D. [id number] AUTO NRBC ABS COUNT 0.00 K/mcL Normal 0.00-0.00 [facility] Comment on above: Performed By: #### L [id number] #### LAB [address] [address] Maurice Coello M.D. [id number] BASOPHILS ABSOLUTE COUNT 0.04 K/mcL Normal 0.00-0.30 [facility] Comment on above: Performed By: #### L [id number] #### LAB [address] [address] Maurice Coello M.D. [id number] Basophils/100 WBC (Bld) 0.4 % Normal [facility] Comment on above: Performed By: #### L [id number] #### LAB [address] [address] Maurice Coello M.D. [id number] Eosinophils (Bld) [#/Vol] 0.01 10*3/uL Normal 0.00-0.50 [facility] Comment on above: Performed By: #### L [id number] #### LAB [address] [address] Maurice Coello M.D. [id number] Eosinophils/100 WBC (Bld) 0.1 % Normal [facility] Comment on above: Performed By: #### L [id number] #### LAB [address] [place] [address] Maurice Coello M.D. [id number] Erythrocyte distribution width (RBC) [Ratio] 13.7 % Normal 11.6-14.8 [facility] Comment on above: Performed By: #### L [id number] #### LAB [address] [address] Maurice Coello M.D. [id number] Hematocrit (Bld) [Volume fraction] 42.7 % Normal 36.0-46.0 [facility] Comment on above: Performed By: #### L [id number] #### LAB [address] [place] [address] Maurice Coello M.D. [id number] Hemoglobin (Bld) [Mass/Vol] 13.0 g/dL Normal 12.0-16.0 [facility] Comment on above: Performed By: #### L [id number] #### LAB [address] [address] Maurice Coello M.D. [id number] IG ABSOLUTE 0.05 K/mcL Normal 0.00-0.30 [facility] Comment on above: Performed By: #### L [id number] ####MH LAB [address] [address] Maurice Coello M.D. [id number] IG PERCENT 0.40 % Normal [facility] Comment on above: Result Comment: The IG parameter is the percentage of metamyelocytes, myelocytes and promyelocytes. An immature granulocyte count (IG) of 1% or more suggests the possibility of infection, an IG count of 3% is very likely related to an infection. Performed By: #### L [id number] #### LAB [address] [address] Maurice Coello M.D. [id number] Lymphocytes (Bld) [#/Vol] 0.93 10*3/uL Normal 0.90-4.00 [facility] Comment on above: Performed By: #### L [id number] #### LAB [address] [address] Maurice Coello M.D. [id number] Lymphocytes/100 WBC (Bld) 8.2 % Normal [facility] Comment on above: Performed By: #### L [id number] #### LAB [address] [address] Maurice Coello M.D. [id number] MCH (RBC) [Entitic mass] 25.5 pg Low 26.0-34.0 [facility] Comment on above: Performed By: #### L [id number] #### LAB [address] [address] Maurice Coello M.D. [id number] MCV (RBC) [Entitic vol] 83.7 fL Normal 80.0-100.0 [facility] Comment on above: Performed By: #### L [id number] #### LAB [address] [address] Maurice Coello M.D. [id number] MEAN CORPUSCULAR HEMOGLOBIN CONC 30.4 g/dL Low 31.0-37.0 [facility] Comment on above: Performed By: #### L [id number] #### LAB [address] [address] Maurice Coello M.D. [id number] Monocytes (Bld) [#/Vol] 0.55 10*3/uL Normal 0.30-0.90 [facility] Comment on above: Performed By: #### L [id number] #### LAB [address] [address] Maurice Coello M.D. [id number] Monocytes/100 WBC (Bld) 4.8 % Normal [facility] Comment on above: Performed By: #### L [id number] #### LAB [address] [address] Maurice Coello M.D. [id number] NEUTROPHILS ABSOLUTE COUNT 9.81 K/mcL High 1.70-7.00 [facility] Comment on above: Performed By: #### L [id number] #### LAB [address] [address] Maurice Coello M.D. [id number] Neutrophils/100 WBC (Bld) 86.1 % Normal [facility] Comment on above: Performed By: #### L [id number] #### LAB [address] [address] Maurice Coello M.D. [id number] Platelet mean volume (Bld) [Entitic vol] 10.1 fL Normal 9.4-12.4 [facility] Comment on above: Performed By: #### L [id number] #### LAB [address] [place] [address] Maurice Coello M.D. [id number] Platelets (Bld) [#/Vol] 319 10*3/uL Normal 150-400 [facility] Comment on above: Performed By: #### L [id number] ####MH LAB [address] [address] Maurice Coello M.D. [id number] RBC (Bld) [#/Vol] 5.10 10*6/uL Normal 4.00-5.20 [facility] Comment on above: Performed By: #### L [id number] ####MH LAB [address] [address] Maurice Coello M.D. [id number] WBC (Bld) [#/Vol] 11.39 10*3/uL High 4.50-11.00 [facility] Comment on above: Performed By: #### L [id number] #### LAB [address] [address] Maurice Coello M.D. [id number] CK [Catalytic activity/Vol]o n 02-13-2025 Interpretation and review of laboratory results Abnormal [facility] Manual dilution performed [facility] COVID-19/INFLUENZA A,B MOLEC ULARon 02-13-2025 SARS-CoV-2 (COVID-19) Ab IA Ql SARS-COV-2 (SOFIE) Not Detected INFLUENZA A (SOFIE) Not Detected INFLUENZA B (SOFIE) Not Detected Normal Not Detected [facility] Comment on above: Performed By: #### L [id number] #### MH LAB [address] [address] Maurice Coello M.D. [id number] CPKon 02-13-2025 CPK 19547 U/L High 40-170 [facility] Comment on above: Order Comment: [facility] has implemented the eGFR calculation approach that does not have a coefficient for race that conforms to the NKF-ASN Task Force Recommendations. Performed By: #### 4 [id number] #### MH LAB [address] [address] Maurice Coello M.D. [id number] CPK NO MBon 02-13-2025 CK [Catalytic activity/Vol] 14434 U/L High 40 - 170 U/L [facility] CT Abdomen and Pelvis W cont rast [...] focal consolidation is seen. Workstation ID: [id number] [employer] EXAMINATION: CTA PULM ART AND CT ABD [...] changes of the lumbar spine is seen. Spootr Matias Holguin MD - 02/13/2025 EXAMINATION: CTA [...] focal consolidation is seen. Workstation ID: [id number] [facility] Radiology Study observation (narrative) [place] CT Abdomen and Pelvis W cont rast IVOrdered By: Matias Adler on 02-13-2025 [facility] Work Phone: CTA PULM ART AND CT [...] on MonFeb 13, 2025 7:20:00 PM EDT [facility] Comment on above: Order Comment: [...] without acute dynamic changes, no STEMI. NSR. NJ interval 144 ms. QRS 90 ms. BPM: 94 Clinical impression: normal ECG AUTHENTICATED BY ASTRID SANDERS, ON 02/13/2025 19:13:57 Normal [facility] ED Procedure EKG 12-lead Date/Time: 02/13/2025 3:51 PM Performed by: Astrid Sanders DO Authorized by: Astrid Sanders DO Interpreted by ED attending physician Comparison: compared with previous ECG from 09/21/2024 Similar to previous ECG Rhythm: sinus rhythm and sinus tachycardia BPM: 101 Clinical impression: abnormal ECG and sinus tachycardia Comments: Sinus tachycardia. NJ interval 140 ms. QRS [address] and T wave abnormality. No STEMI. AUTHENTICATED BY ASTRID SANDERS, ON 02/13/2025 16:34:05 Normal [facility] ED Prov Noteon 02-13-2025 ED Prov Note EMERGENCY MEDICINE PROVIDER NOTE [facility] NAME: Radha Shafer AGE: 64 y.o. SEX: female : 1960 ENCOUNTER DATE: 02/13/25 CSN: [id number] PCP: Erin Physician History of Presenting Illness/Medical [...] was given 4 baby aspirin by EMS [employer]EN[employer] SPECIALIST. No nitroglycerin. Patient states that she was [...] ear normal. Nose: Nose normal. Mouth/Throat: Lips: [place]. Mouth: Mucous membranes are moist. Eyes: General: [...] All other components within normal limits Narrative: [facility] has implemented the eGFR calculation approach that does not have a coefficient for race that conforms to the NKF-ASN Task Force Recommendations. NT PRO BNP - Abnormal; Notable for the following components: NT-Pro BNP 3,931 (*) All other components within normal limits Narra (more content not included)... Normal [facility] EKG 12-leadon 02-13-2025 Atrial Rate 101 BPM [facility] P Wiggins 65 degrees [facility] P-R Interval 148 ms [facility] Q-T Interval 368 ms [facility] QRS Duration 82 ms [facility] QTC Calculation (Bezet) 477 ms [facility] R Wiggins -11 degrees [facility] T Wiggins 65 degrees [facility] Ventricular Rate 101 BPM [facility] Sinus tachycardia Minimal voltage criteria for LVH, may be normal variant ( R in aVL ) Nonspecific ST and T wave abnormality Abnormal ECG ECG Cart Interpretation see physician note for interpretation. Confirmed by Yajaira Hernandez ([id number]) on 02/13/2025 8:27:59 PM MUSE [facility] Influenza virus A and B RNA and SARS-CoV-2 (COVID-19) N gene panel CATRINA+probe (Resp)Ordered By: Christine Dahl on 02-13-2025 FLUAV RNA CATRINA+probe Ql (Unsp spec) Not detected Not Detected [facility] FLUBV RNA CATRINA+probe Ql (Unsp spec) Not detected Not Detected [facility] Interpretation and review of laboratory results Normal [facility] SARS-CoV-2 (COVID-19) RNA CATRINA+probe Ql (Resp) Not detected Not Detected [facility] NT PRO BNPon 02-13-2025 Natriuretic peptide B (Bld) [Mass/Vol] 3931 pg/mL High 0-300 [facility] Comment on above: Order Comment: Resul [...] select bacterial infections. Performed By: #### L [id number] #### MH LAB [address] [facility] [place], [place] [address] Maurice Coello M.D. [id number] Natriuretic peptide.B prohor curly N-Terminal [Mass/Vol]on 02-13-2025 Pride Study Cut-offs Rule In: < /= 50 Years >450 pg/mL 51 Years - 75 Years >900 pg/mL 76 Years - 99 Years >1800 pg/mL Rule Out: All patients <300 pg/mL [facility] No Panel Informationon 02-13 Extra Tube Hold for add-ons. [facility] Comment on above: Auto resulted. [facility] Interpretation and review of laboratory results Abnormal [facility] POC VENOUS BLOOD GAS PANEL-P SHAW Lindquist 02-13-2025 BASE EXCESS, VENOUS 3.4 High -2.0-2.0 [facility] Comment on above: Performed By: #### L [id number] #### MH LAB [address] [place], [place] [address] Muarice Coello M.D. [id number] CALCIUM IONIZED 4.6 mg/dL Normal 4.5-5.3 [facility] Comment on above: Performed By: #### L [id number] #### MH LAB [address] [place], [place] [address] Maurice Coello M.D. [id number] CARBOXYHEMOGLOBIN 2.0 % of total Hb High <=1.5 [facility] Comment on above: Result Comment: Refe rence Ranges: Suburban Non-smokers: <1.5% Smokers: 1.5-5.0% Heavy Smokers: 5.0-9.0% Performed By: #### L [id number] #### MH LAB [address] [place], [place] [address] Maurice Coello M.D. [id number] Chloride [Moles/Vol] 95 mmol/L Low 98-108 [facility] Comment on above: Performed By: #### L [id number] #### MH LAB [address] [place], [place] [address] Maurice Coello M.D. [id number] FIO2 21 Normal [facility] Comment on above: Performed By: #### L [id number] #### MH LAB [address] [place], [place] [address] Maurice Coello M.D. [id number] Glucose [Mass/Vol] 124 mg/dL High 65-99 [facility] Comment on above: Performed By: #### L [id number] #### MH LAB [address] [address] Maurice Coello M.D. [id number] HCO3 (Bld) [Moles/Vol] 30.7 mmol/L High 24.0-28.0 [facility] Comment on above: Performed By: #### L [id number] #### LAB [address] [address] Maurice Coello M.D. [id number] Hematocrit (Bld) [Volume fraction] 42.1 % Normal 36.0-46.0 [facility] Comment on above: Performed By: #### L [id number] #### LAB [address] [address] Maurice Coello M.D. [id number] Hemoglobin (Bld) [Mass/Vol] 13.7 g/dL Normal 12.0-16.0 [facility] Comment on above: Performed By: #### L [id number] #### LAB [address] [address] Maurice Coello M.D. [id number] LACTIC ACID, WHOLE BLOOD 1.5 mmol/L Normal 0.6-2.0 [facility] Comment on above: Performed By: #### L [id number] #### LAB [address] [address] Maurice Coello M.D. [id number] METHEMOGLOBIN < Normal 0.0-2.0 [facility] Comment on above: Performed By: #### L [id number] #### LAB [address] [address] Maurice Coello M.D. [id number] O2HB 53.3 % Normal No established reference range [facility] Comment on above: Performed By: #### L [id number] #### LAB [address] [address] Maurice Coello M.D. [id number] Oxygen saturation in Blood 54.8 % Normal 40.0-70.0 [facility] Comment on above: Performed By: #### L [id number] #### LAB [address] [address] Maurice Coello M.D. [id number] PCO2 VENOUS 57.1 mm Hg High 41.0-51.0 [facility] Comment on above: Performed By: #### L [id number] #### MH LAB [address] [address] Maurice Coello M.D. [id number] PH VENOUS 7.34 Normal 7.32-7.42 [facility] Comment on above: Performed By: #### L [id number] #### MH LAB [address] [address] Maurice Coello M.D. [id number] PO2 VENOUS 30 mm Hg Normal 25-40 [facility] Comment on above: Performed By: #### L [id number] #### LAB [address] [address] Maurice Coello M.D. [id number] Potassium [Moles/Vol] 4.3 mmol/L Normal 3.5-5.1 [facility] Comment on above: Performed By: #### L [id number] #### LAB [address] [address] Maurice Coello M.D. [id number] Sodium [Moles/Vol] 137 mmol/L Normal 135-145 [facility] Comment on above: Performed By: #### L [id number] #### LAB [address] [address] Maurice Coello M.D. [id number] SPECIMEN SOURCE RADIANCE Not specified Normal [facility] Comment on above: Performed By: #### L [id number] #### MH LAB [address] [address] Maurice Coello M.D. [id number] POC Venous Blood Gas Panel-P juan 02-13-2025 Base excess Calc (BldV) [Moles/Vol] 3.4 mmol/L High -2.0 - 2.0 [facility] Calcium.ionized [Mass/Vol] 4.6 mg/dL 4.5 - 5.3 mg/dL [facility] Carboxyhemoglobin (BldA) [Mass fraction] 2 High NINF [facility] Comment on above: Reference Ranges: Suburban Non-smokers: <1.5% Smokers: 1.5-5.0% Heavy Smokers: 5.0-9.0% CO2 (BldV) [Partial pressure] 57.1 mm[Hg] High [facility] Glucose post fast [Mass/Vol] 124 mg/dL High 65 - 99 mg/dL [facility] Hematocrit (BldA) [Volume fraction] 42.1 % 36.0 - 46.0 % [facility] Inhaled oxygen concentration 21 % [facility] Interpretation and review of laboratory results Abnormal [facility] Lactate [Moles/Vol] 1.5 mmol/L 0.6 - 2. 0 mmol/L [facility] Methemoglobin (BldA) [Mass fraction] % 0.0 - 2.0 % [facility] Oxygen (BldV) [Partial pressure] 30 mm[Hg] [facility] Oxygen saturation in Venous blood 54.8 % 40.0 - 70.0 % [facility] Oxyhemoglobin (BldA) [Mass fraction] 53.3 % -100.0 - 101.0 % [facility] pH (BldV) 7.34 [pH] 7.32 - 7.42 [facility] Specimen source Nom (Unsp spec) Not specified [facility] TROPONIN X 2 (NOW AND REPEAT IN 2 HOURS)on 02-13-2025 TROPONIN T DELTA % NG/L -16 % Normal <20% of Baseline Troponin [facility] Comment on above: Performed By: #### L [id number] #### MH LAB [address] [address] Maurice Coello M.D. [id number] TROPONIN T DELTA CHANGE INTERPRETATION Probable non-acute cardiac injury or late presentation of acute injury. Normal [facility] Comment on above: Performed By: #### L [id number] #### MH LAB [address] [address] Maurice Coello M.D. [id number] TROPONIN T NG/L 83 ng/L Off scale high <=14 [facility] Comment on above: Performed By: #### L [id number] #### LAB [address] [address] Maurice Coello M.D. [id number] BASELINE TROPONIN T NG/L 99 ng/L Off scale high <=14 [facility] Comment on above: Performed By: #### [id number] ####[facility] LAB [address] [address] Maurice Coello M.D. [id number] TROPONIN T INTERPRETATION Possible acute cardiac injury. Normal [facility] Comment on above: Performed By: #### [id number] ####[facility] LAB [address] [address] Maurice Coello M.D. [id number] BASELINE TROPONIN T NG/L 100 ng/L Off scale high <=14 [facility] Comment on above: Performed By: #### [id number] ####[facility] LAB [address] [address] Maurice Coello M.D. [id number] TROPONIN T INTERPRETATION Possible acute cardiac injury. Normal [facility] Comment on above: Performed By: #### [id number] ####[facility] LAB [address] [address] Maurice Coello M.D. [id number] Troponin x 2 (Now and Repeat in 2 hours)on 02-13-2025 Interpretation and review of laboratory results Abnormal [facility] Troponin T 99 ng/L Critically high NINF - 14 ng/L [facility] Troponin T Interpretation Possible acute cardiac injury. [facility] Troponin x 2 (Now and Repeat in 2 hours)Ordered By: Zaire Sparrow on 02-13-2025 Interpretation and review of laboratory results Abnormal [facility] Troponin T 100 ng/L Critically high NINF - 14 ng/L [facility] Troponin T Interpretation Possible acute cardiac injury. [facility] URINALYSISon 02-13-2025 AMORPHOUS CRYSTALS Few Abnormal None Seen , Rare [facility] Comment on above: Order Comment: [facility] has implemented the eGFR calculation approach that does not have a coefficient for race that conforms to the NKF-ASN Task Force Recommendations. Performed By: #### [id number] #### MH LAB [address] [address] Maurice Coello M.D. [id number] BACTERIA, URINE None Seen Normal None Seen [facility] Comment on above: Order Comment: [facility] has implemented the eGFR calculation approach that does not have a coefficient for race that conforms to the NKF-ASN Task Force Recommendations. Performed By: #### 4 [id number] #### MH LAB [address] [address] Maurice Coello M.D. [id number] BILIRUBIN, URINE Negative Normal Negative [facility] Comment on above: Order Comment: [facility] has implemented the eGFR calculation approach that does not have a coefficient for race that conforms to the NKF-ASN Task Force Recommendations. Performed By: #### 4 [id number] #### LAB [address] [address] Maurice Coello M.D. [id number] BLOOD, URINE Large Abnormal Negative [facility] Comment on above: Order Comment: [facility] has implemented the eGFR calculation approach that does not have a coefficient for race that conforms to the NKF-ASN Task Force Recommendations. Performed By: #### 4 [id number] #### LAB [address] [address] Maurice Coello M.D. [id number] Clarity (U) Clear Normal Clear [facility] [facility] Comment on above: Order Comment: [facility] has implemented the eGFR calculation approach that does not have a coefficient for race that conforms to the NKF-ASN Task Force Recommendations. Performed By: #### 4 [id number] #### LAB [address] [address] Maurice Coello M.D. [id number] Color (U) Colorless Normal Colorless, Yellow [facility] Comment on above: Order Comment: [facility] has implemented the eGFR calculation approach that does not have a coefficient for race that conforms to the NKF-ASN Task Force Recommendations. Performed By: #### 4 6124 #### LAB [address] [address] Maurice Coello M.D. [id number] Glucose Ql (U) Negative Normal Negative [facility] Comment on above: Order Comment: [facility] has implemented the eGFR calculation approach that does not have a coefficient for race that conforms to the NKF-ASN Task Force Recommendations. Performed By: #### 4 6124 #### LAB [address] [address] Maurice Coello M.D. [id number] Ketones Ql (U) Negative Normal Negative [facility] Comment on above: Order Comment: [facility] has implemented the eGFR calculation approach that does not have a coefficient for race that conforms to the NKF-ASN Task Force Recommendations. Performed By: #### 4 6124 #### LAB [address] [address] Maurice Coello M.D. [id number] Leukocyte esterase Test strip Ql (U) Negative Normal Negative [facility] Comment on above: Order Comment: [facility] has implemented the eGFR calculation approach that does not have a coefficient for race that conforms to the NKF-ASN Task Force Recommendations. Performed By: #### 4 6124 #### LAB [address] [address] Maurice Coello M.D. [id number] NITRITE, URINE Negative Normal [facility] Comment on above: Order Comment: [facility] has implemented the eGFR calculation approach that does not have a coefficient for race that conforms to the NKF-ASN Task Force Recommendations. Performed By: #### 4 6124 #### LAB [address] [address] Maurice Coello M.D. [id number] pH (U) 5.5 [pH] Normal 5.0-7.0 [facility] Comment on above: Order Comment: [facility] has implemented the eGFR calculation approach that does not have a coefficient for race that conforms to the NKF-ASN Task Force Recommendations. Performed By: #### 4 6124 #### LAB [address] [address] Maurice Coello M.D. [id number] Protein (U) [Mass/Vol] 30 mg/dL Abnormal Negative [facility] Comment on above: Order Comment: [facility] has implemented the eGFR calculation approach that does not have a coefficient for race that conforms to the NKF-ASN Task Force Recommendations. Result Comment: Fals e positive results may occur in urines with large amounts of hemoglobin, pH greater than 8.0, contrast medium, or disinfectants including ammonium compounds. Performed By: #### 4 6124 #### LAB [address] [address] Maurice Coello M.D. [id number] Specific gravity (U) [Rel density] 1.016 Normal 1.005-1.025 [facility] Comment on above: Order Comment: [facility] has implemented the eGFR calculation approach that does not have a coefficient for race that conforms to the NKF-ASN Task Force Recommendations. Performed By: #### 4 6124 #### LAB [address] [address] Maurice Coello M.D. [id number] SQUAMOUS EPITHELIAL < Normal 0-4 [facility] Comment on above: Order Comment: [facility] has implemented the eGFR calculation approach that does not have a coefficient for race that conforms to the NKF-ASN Task Force Recommendations. Performed By: #### 4 6135 #### LAB [address] [address] Maurice Coello M.D. [id number] TRANSITIONAL EPITHELIAL < Normal 0-1 [facility] Comment on above: Order Comment: [facility] has implemented the eGFR calculation approach that does not have a coefficient for race that conforms to the NKF-ASN Task Force Recommendations. Performed By: #### 4 6198 #### LAB [address] [address] Maurice Coello M.D. [id number] UROBILINOGEN, URINE <2.0 Normal <2.0 [facility] Comment on above: Order Comment: [facility] has implemented the eGFR calculation approach that does not have a coefficient for race that conforms to the NKF-ASN Task Force Recommendations. Performed By: #### 4 6135 #### LAB [address] [id number] Maurice Coello M.D. [id number] WBC LM.HPF (Urine sed) [#/Area] 1 /[HPF] Normal 0-5 [facility] Comment on above: Order Comment: [facility] has implemented the eGFR calculation approach that does not have a coefficient for race that conforms to the NKF-ASN Task Force Recommendations. Performed By: #### 4 6124 #### [facility] LAB [address] [address] Maurice Coello M.D. [id number] URINE AEROBIC CULTUREon 02-04 URINE AEROBIC CULTURE URINE CULTURE < 10,000 CFU/mL of normal urogenital microbiota Normal [facility] Comment on above: Performed By: #### L [id number] #### [facility] [address] [place], [place] [address] Maurice Coello M.D. [id number] UrinalysisOrdered By: Bhumi Teixeira on 02-13-2025 Bacteria Auto Ql (U) None Seen None Se en /hpf [facility] Bilirubin Ql (U) Negative Negative [facility] Clarity Refractometry automated (U) Clear Clear [facility] Color (U) Colorless Colorless, Yellow [facility] Crystals.amorphous Computer assisted (U) [#/Area] Few Abnormal None Seen, Rare /hpf [facility] Epithelial cells.squamous Auto (Urine sed) [#/Area] [facility] Glucose Auto test strip (U) [Mass/Vol] Negative Negative mg/dL [facility] Hemoglobin Auto test strip Ql (U) Large Abnormal Negative [facility] Interpretation and review of laboratory results Abnormal [facility] Ketones (U) [Mass/Vol] Negative Negat radha mg/dL [facility] Leukocyte esterase Auto test strip Ql (U) Negative Negative [facility] Nitrite Auto test strip Ql (U) Negative Negative [facility] pH (U) 5.5 [pH] 5.0 - 7.0 [facility] Protein (U) [Mass/Vol] 30 mg/dL Abnormal Negative [facility] Comment on above: False positive resul ts may occur in urines with large amounts of hemoglobin, pH greater than 8.0, contrast medium, or disinfectants including ammonium compounds. Specific gravity (U) [Rel density] 1.016 1.005 - 1.025 [facility] Transitional cells Computer assisted (U) [#/Area] [facility] Urobilinogen (U) [Mass/Vol] mg/dL NINF - 2.0 mg/dL [facility] WBC Auto (Urine sed) [#/Area] 1 [facility] Microscopic examinat ion is performed on all urinalysis samples and only positive findings are reported. The test for blood on the chemical analytic portion of urinalysis may also be positive due to hemoglobinuria and myoglobinuria and if red blood cells are present they are quantified by microscopic examination. [facility] VBG (obtain and perform)on 0 02-13-2025 [facility] XR CHEST PA/APon 02-13-2025 XR CHEST PA/AP [...] on MonFeb 13, 2025 5:20:06 PM EDT Normal [facility] Comment on above: Order Comment: Resul [...] No acute cardiopulmonary abnormality. Workstation ID: [id number] GE RIS EXAMINATION: XR CHEST PA/AP 02/13/2025 4:15 pm [...] lung. The cardiac silhouette is not enlarged. GE RIS Jason Panchal DO - 02/13/2025 EXAMINATION: XR [...] No acute cardiopulmonary abnormality. Workstation ID: [id number] [facility] Radiology Study observation (narrative) [place] XR Chest PA and Abdomen APOr dered By: Jason Panchal on 02-13-2025 [facility] Work Phone: Magnetic resonance imaging r eportOrdered By: Dev Escobar on 02-04-2025 Study report [facility] Imaging Services [address] [place] [address] Spine Cervical (Routine) MR#: [id number] Acct: [id number] Name: RADHA SHAFER ANIL Rep #: [id number] : 1960 F 64 From: Pet er Peer DO PCP: Dr. Jennifer Gordon MD Status: REG CLI Study:Spine Cervical (Routine) Date of Exam: 02/03/25 Exam# [id number] Ordering Dr: Ventura,Paul tlyn PA PROCEDURE: SPINE CERVICAL (ROUTINE) 02/03/2025 REASON FOR [...] severe at the C5-6 level. Reading Location[facility] CC: DANIEL Archer; Dr. Jennifer Gordon MD ~ Manager News: Signed [facility] Spine Cervical (Routine)on 0 02-03-2025 Spine Cervical (Routine) [facility] Services [address] [place] [address] Spine Cervical (Routine) MR#: [id number] Acct: [id number] Name: RADHA SHAFER Rep #: [id number] : 1960 F 64 From: Dev Escobar DO PCP: Dr. Jennifer Gordon MD Status: REG CLI Study: Spine Cervical (Routine) Date of Exam: Exam# [id number] Ordering Dr: Hui Whitehead PROCEDURE: SPINE CERVICAL [...] severe at the C5-6 level. Reading Location: [facility] CC: DANIEL Archer; Dr. Jennifer Gordon MD Manager News: Signed Normal [facility] Orthopedic Visit Reporton Orthopedic Visit Report [facility] [address] [place] [address] OFFICE VISIT Date of Service: 01/21/25 MR#: [id number] Acct: [id number] Name: HOLLISRADHA ANIL Rep #: [id number] : 1960 Provider: Dr. Cary shah MD Age/Sex: 64/F [facility] [facility] Status: Signed Intake Vital Signs 01/06/25 10:18 [...] hand ex (more content not included)... Normal [facility] Shoulder min 2 Viewson 01-21 Shoulder min 2 Views [facility] [address] [place] [address] Shoulder min 2 Views MR#: [id number] Acct: [id number] Name: RADHA SHAFER ANIL Rep #: [id number] : 1960 64 From: Clarence gama MD PCP: Dr. Jennifer Gordon MD Status: DEP AMB Study: Shoulder min 2 Views Date of Exam: 01/21/25 Exam# [id number] Ordering Dr: Cary Jacobsen MD PROCEDURE: SHOULDER [...] No acute abnormality is seen. Reading Location: [facility] CC: Dr. Jennifer Gordon MD; Dr. Cary Jacobsen MD Manager News: Signed Normal [facility] Magnetic resonance imaging r eportOrdered By: Vaibhav Guevara on 01-14-2025 Study report [facility] [address] [place], [place] [id number] Spine Lumbar (Routine) MR#: [id number] Acct: [id number] Name: BENJAMINARENRADHA LU Rep #: [id number] : 1960 F 64 From: Shavonne Guevara MD PCP: Dr. Jennifer Gordon MD Status: REG CLI Study:Spine Lumbar (Routine) Date of Exam: 01/13/25 Exam# [id number] Ordering Dr: Rusty Dozier MD PROCEDURE: SPINE [...] significant spinal canal or foraminal stenosis. L1-2: Alarsjuo-sh-tilbqs loss of disc height with diffuse disc bulging and anterior disc/osteophyte complex. No significant spinal canal or foraminal stenosis. L2-3: Diffuse disc bulging, asymmetric to the right with a superimposed right lateral disc protrusion, with jlvffndm-cy-ypntiz loss of disc height. Relative narrowing of the right lateral recess. Mild facet arthropathy. Mild foraminal stenoses bilaterally. L3-4: Prominent diffuse disc bulging with moderate loss of disc height and lateral/anterior disc/osteophyte complexes. Small superimposed central disc protrusion. Zbkoexcj-th-srzpte spinal canal stenosis with near-complete effacement of CSF. Facet arthropathy. Mild ligamentum flavum hypertrophy. Moderate right and mild/moderate left foraminal stenoses. Narrowing of bilateral lateral recesses. L4-5: Gcvjbyeg-jx-kuvnac loss of disc height with diffuse disc bulging, asymmetric to the right. Small superimposed central and left paracentral as well as right lateral disc protrusions. Facet arthropathy. Mild ligamentum flavum hypertrophy. Imdgbhiq-ag-ntjaxo spinal canal stenosis with virtually complete effacement of CSF. Rgzasbhe-wn-ltybtu right and moderate left foraminal stenoses. Effacement of dbknz-nuzehjy-ldgy-left lateral recesses L5-S1: Bulging with superimposed left mild diffuse disc foraminal and lateral disc protrusion contacting the exiting nerve root. Mild ligamentum flavum hypertrophy. No significant focal spinal canal stenosis. Facet arthropathy. Xxncppfd-dh-ljopll left foraminal stenosis. Other: Focal narrowing of the spinal canal at T10-T11, not well evaluated as this is above the field of view of axial imaging. This may be related to a synovial cyst or facet arthropathy given the configuration on sagittal images. Additional cervicothoracic spondylosis on the video technician, not well evaluated. Mild ectasia of the abdominal aorta to 2.4 x 2.4 cm. Tiny presumed renal cysts, incompletely characterized. MRI/Spine Lumbar (Routine) IMPRESSION: 1. Multilevel spondylosis with variable both spinal canal and foraminal stenosesup to moderate/severe as detailed. 2. Additional description as above. Reading Location: [facility] CC: Dr. Jennifer Gordon MD; Dr. Rusty Dozier MD ~ Manager News: Signed [facility] Spine Lumbar (Routine)on Spine Lumbar (Routine) [facility] [address] [place] [id number] Spine Lumbar (Routine) MR#: [id number] Acct: [id number] Name: RADHA SHAFER Rep #: [id number] : 1960 F 64 From: Vaibhav Guevara MD PCP: Dr. Jennifer Gordon MD Status: REG CLI Study: Spine Lumbar (Routine) Date of Exam: 01/13/25 Exam# [id number] Ordering Dr: Rusty Dozier MD PROCEDURE: SPINE [...] significant spinal canal or foraminal stenosis. L1-2: Ixcgxkcz-ca-wepvls loss of disc height with diffuse disc bulging and anterior disc/osteophyte complex. No significant spinal canal or foraminal stenosis. L2-3: Diffuse disc bulging, asymmetric to the right with a superimposed right lateral disc protrusion, with tfbeceot-wv-jrsmal loss of disc height. Relative narrowing of the right lateral recess. Mild facet arthropathy. Mild foraminal stenoses bilaterally. L3-4: Prominent diffuse disc bulging with moderate loss of disc height and lateral/anterior disc/osteophyte complexes. Small superimposed central disc protrusion. Zvvoasnm-qi-jkpjvb spinal canal stenosis with near-complete effacement of CSF. Facet arthropathy. Mild ligamentum flavum hypertrophy. Moderate right and mild/moderate left foraminal stenoses. Narrowing of bilateral lateral recesses. L4-5: Sbabwter-wa-jtrqwd loss of disc height with diffuse disc bulging, asymmetric to the right. Small superimposed central and left paracentral as well as right lateral disc protrusions. Facet arthropathy. Mild ligamentum flavum hypertrophy. Vfazxhni-uk-pxfmpg spinal canal stenosis with virtually complete effacement of CSF. Zxhqteto-zd-nahkcb right and moderate left foraminal stenoses. Effacement of llygk-xugmyhm-zooh-left lateral recesses L5-S1: Bulging with superimposed left mild diffuse disc foraminal and lateral disc protrusion contacting the exiting nerve root. Mild ligamentum flavum hypertrophy. No significant focal spinal canal stenosis. Facet arthropathy. Kcmpthdz-yu-ktymhq left foraminal stenosis. Other: Focal narrowing of the spinal canal at T10-T11, not well evaluated as this is above the field of view of axial imaging. This may be related to a synovial cyst or facet arthropathy given the configuration on sagittal images. Additional cervicothoracic spondylosis on the video technician, not well evaluated. Mild ectasia of the abdominal aorta to 2.4 x 2.4 cm. Tiny presumed renal cysts, incompletely characterized. MRI/Spine Lumbar (Routine) IMPRESSION: 1. Multilevel spondylosis with variable both spinal canal and foraminal stenoses up to moderate/severe as detailed. 2. Additional description as above. Reading Location: [id number] CC: Dr. Jennifer Gordon MD; Dr. Rusty Dozier MD Manager News: Signed Normal [facility] Cerv Spine 4 or 5 Viewson Cerv Spine 4 or 5 Views [facility] Services [address] [place], [place] [id number] Cerv Spine 4 or 5 Views MR#: [id number] Acct: [id number] Name: HOLLISRADHA LU Rep #: [id number] : 1960 F 64 From: Vaibhav Orantes MD PCP: Dr. Jennifer Gordon MD Status: DEP AMB Study: Cerv Spine 4 or 5 Views Date of Exam: 01/06/25 Exam# [id number] Ordering Dr: Hui Whitehead EXAM: XR Cervical [...] fracture. No significant dynamic instability. Reading Location: [facility] CC: DANIEL Archer; Dr. Jennifer Gordon MD Manager News: Signed Normal [facility] Orthopedic Visit Reporton Orthopedic Visit Report [facility] [address] [place] [address] [address] [place] [address] OFFICE VISIT Date of Service: 01/06/25 MR#: [id number] Acct: [id number] Name: RADHA SHAFER Rep #: [id number] : 1960 Provider: DANIEL Archer Age/Sex: 64/F Location[place] [facility] Status: Signed Intake Vital Signs 12/26/24 11:24 [...] in the past year?: Yes (December 2024) PFS Medical History Myalgia Neck pain Low back [...] Cigarette Us (more content not included)... Normal [facility] Emergency Department Summary on 01-01-2025 Emergency Department Summary [facility] Medical Records Department [address] [place] [address] Emergency Department Summary 01/01/25 MR#: [id number] Acct: [id number] Name: RADHA SHAFER Rep #: [id number] : 1960 64 From: Teddy Rust MD [...] symptoms: Yes Recent Illness/Hospitalization : Yes PFSH PFS Medical History Myalgia Neck pain Low back [...] ???Medication ???Instructions ???Recorded ???Last Taken ???Type Disability Placmadeleine #1 ea 02/07/23 Unknown Rx aspirin 81 [...] extraction status (more content not included)... Normal [facility] Neurology Visit Reporton Neurology Visit Report [facility] [address] [place] [address], [address] [place] [address] OFFICE VISIT Date of Service: 12/26/24 MR#: [id number] Acct: [id number] Name: RADHA SHAFER Rep #: [id number] : 1960 Provider: Dr. Rusty ayers MD Age/Sex: 64/F Location[place] [facility] Status: Signed HPI [facility] Chief Complaint: Details: Interim History: Radha returns for follow-up visit. She has stage III/IV chronic renal insufficiency, left-sided facial shingles (2020), sleep apnea (she uses supplemental oxygen; she no longer uses CPAP), and hypothyroidism. She sees a drama therapist. She had a left knee replacement in 2008. She has chronic low back pain. She previously saw a paint prep technician, Dr. Mancini, in 2018 and had lumbar [...] well- tolerated; she sees a physician at [facility] in [place] and is prescribed Dojolvi. Tizanidine is of [...] takes doxepin for insomnia. She saw a inspector technician in 2018 for right foot pain and [...] did not tolerate CPAP). She saw a bead wire insulator, Dr. Forde, for her positive Bence-Davila protein [...] (03/07/2014): Creatin (more content not included)... Normal [facility] CBC WITH AUTO DIFFERENTIALon 11-12-2024 AUTO NRBC 0.0 % Normal [facility] Comment on above: Performed By: #### L [id number] #### LAB [address] [place], [place] [address] Maurice Coello M.D. [id number] AUTO NRBC ABS COUNT 0.00 K/mcL Normal 0.00-0.00 [facility] Comment on above: Performed By: #### L [id number] #### LAB [address] [place], [place] [address] Maurice Coello M.D. [id number] BASOPHILS ABSOLUTE COUNT 0.06 K/mcL Normal 0.00-0.30 [facility] Comment on above: Performed By: #### L [id number] #### LAB [address] [address] Maurice Coello M.D. [id number] Basophils/100 WBC (Bld) 0.8 % Normal [facility] Comment on above: Performed By: #### L [id number] #### LAB [address] [address] Maurice Coello M.D. [id number] Eosinophils (Bld) [#/Vol] 0.17 10*3/uL Normal 0.00-0.50 [facility] Comment on above: Performed By: #### L [id number] #### LAB [address] [address] Maurice Coello M.D. [id number] Eosinophils/100 WBC (Bld) 2.3 % Normal [facility] Comment on above: Performed By: #### L [id number] #### LAB [address] [address] Maurice Coello M.D. [id number] Erythrocyte distribution width (RBC) [Ratio] 14.1 % Normal 11.6-14.8 [facility] Comment on above: Performed By: #### L [id number] #### LAB [address] [place] [address] Maurice Coello M.D. [id number] Hematocrit (Bld) [Volume fraction] 36.2 % Normal 36.0-46.0 [facility] Comment on above: Performed By: #### L [id number] #### LAB [address] [address] Maurice Coello M.D. [id number] Hemoglobin (Bld) [Mass/Vol] 11.0 g/dL Low 12.0-16.0 [facility] Comment on above: Performed By: #### L [id number] #### LAB [address] [place] [address] Maurice Coello M.D. [id number] IG ABSOLUTE 0.03 K/mcL Normal 0.00-0.30 [facility] Comment on above: Performed By: #### L [id number] #### LAB [address] [address] Maurice Coello M.D. [id number] IG PERCENT 0.40 % Normal [facility] Comment on above: Result Comment: The IG parameter is the percentage of metamyelocytes, myelocytes and promyelocytes. An immature granulocyte count (IG) of 1% or more suggests the possibility of infection, an IG count of 3% is very likely related to an infection. Performed By: #### L [id number] #### LAB [address] [address] Maurice Coello M.D. [id number] Lymphocytes (Bld) [#/Vol] 1.60 10*3/uL Normal 0.90-4.00 [facility] Comment on above: Performed By: #### L [id number] #### LAB [address] [address] Maurice Coello M.D. [id number] Lymphocytes/100 WBC (Bld) 21.3 % [facility] Comment on above: Performed By: #### L [id number] #### LAB [address] [address] Maurice Coello M.D. [id number] MCH (RBC) [Entitic mass] 26.3 pg Normal 26.0-34.0 [facility] Comment on above: Performed By: #### L [id number] #### LAB [address] [address] Maurice Coello M.D. [id number] MCV (RBC) [Entitic vol] 86.6 fL Normal 80.0-100.0 [facility] Comment on above: Performed By: #### L [id number] #### LAB [address] [place] [address] Maurice Coello M.D. [id number] MEAN CORPUSCULAR HEMOGLOBIN CONC 30.4 g/dL Low 31.0-37.0 [facility] Comment on above: Performed By: #### L [id number] #### LAB [address] [address] Maurice Coello M.D. [id number] Monocytes (Bld) [#/Vol] 0.56 10*3/uL Normal 0.30-0.90 [facility] Comment on above: Performed By: #### L [id number] #### LAB [address] [address] Maurice Coello M.D. [id number] Monocytes/100 WBC (Bld) 7.5 % Normal [facility] Comment on above: Performed By: #### L [id number] #### LAB [address] [place] [address] Maurice Coello M.D. [id number] NEUTROPHILS ABSOLUTE COUNT 5.09 K/mcL Normal 1.70-7.00 [facility] Comment on above: Performed By: #### L [id number] #### LAB [address] [place] [address] Maurice Coello M.D. [id number] Neutrophils/100 WBC (Bld) 67.7 % Normal [facility] Comment on above: Performed By: #### L [id number] #### LAB [address] [address] Maurice Coello M.D. [id number] Platelet mean volume (Bld) [Entitic vol] 10.5 fL Normal 9.4-12.4 [facility] Comment on above: Performed By: #### L [id number] #### LAB [address] [address] Maurice Coello M.D. [id number] Platelets (Bld) [#/Vol] 264 10*3/uL Normal 150-400 [facility] Comment on above: Performed By: #### L [id number] #### LAB [address] [address] Maurice Coello M.D. [id number] RBC (Bld) [#/Vol] 4.18 10*6/uL Normal 4.00-5.20 [facility] Comment on above: Performed By: #### L [id number] #### LAB [address] [place], [place] [address] Maurice Coello M.D. [id number] WBC (Bld) [#/Vol] 7.51 10*3/uL Normal 4.50-11.00 [facility] Comment on above: Performed By: #### L [id number] ####[facility] LAB [address] [address] Maurice Coello M.D. [id number] COMPREHENSIVE METABOLIC PANE Jett 11-12-2024 Albumin [Mass/Vol] 4.1 g/dL Normal 3.2-5.2 [facility] Comment on above: Order Comment: Injur y/Trauma or Illness?:Illness/Other How long have you had these symptoms (acute/chronic)?:Acute Reason for exam?:sob. Hx of COPD History of cancer?:unknown Surgeries, chemotherapy, or radiation?:cholecystectomy, hysterectomy, oophrectomy, left knee replacement Type of Exam?:Initial Additional signs and symptoms?:. Performed By: #### 4 [id number] #### LAB [address] [address] Mauriec Coello M.D. [id number] ALP [Catalytic activity/Vol] 72 U/L Normal 40-150 [facility] Comment on above: Order Comment: Injur y/Trauma or Illness?:Illness/Other How long have you had these symptoms (acute/chronic)?:Acute Reason for exam?:sob. Hx of COPD History of cancer?:unknown Surgeries, chemotherapy, or radiation?:cholecystectomy, hysterectomy, oophrectomy, left knee replacement Type of Exam?:Initial Additional signs and symptoms?:. Performed By: #### 4 [id number] ####[facility] LAB [address] [address] Maurice Coello M.D. [id number] ALT [Catalytic activity/Vol] 16 U/L Normal 0-35 U/L [facility] Comment on above: Order Comment: Injur y/Trauma or Illness?:Illness/Other How long have you had these symptoms (acute/chronic)?:Acute Reason for exam?:sob. Hx of COPD History of cancer?:unknown Surgeries, chemotherapy, or radiation?:cholecystectomy, hysterectomy, oophrectomy, left knee replacement Type of Exam?:Initial Additional signs and symptoms?:. Performed By: #### 4 6148 #### LAB [address] [address] Maurice Coello M.D. [id number] Anion gap [Moles/Vol] 14 mmol/L Normal 10-[address] [facility] Comment on above: Order Comment: Injur y/Trauma or Illness?:Illness/Other How long have you had these symptoms (acute/chronic)?:Acute Reason for exam?:sob. Hx of COPD History of cancer?:unknown Surgeries, chemotherapy, or radiation?:cholecystectomy, hysterectomy, oophrectomy, left knee replacement Type of Exam?:Initial Additional signs and symptoms?:. Performed By: #### 4 [id number] #### LAB [address] [address] Maurice Coello M.D. [id number] AST [Catalytic activity/Vol] 17 U/L Normal 0-35 U/L [facility] Comment on above: Order Comment: Injur y/Trauma or Illness?:Illness/Other How long have you had these symptoms (acute/chronic)?:Acute Reason for exam?:sob. Hx of COPD History of cancer?:unknown Surgeries, chemotherapy, or radiation?:cholecystectomy, hysterectomy, oophrectomy, left knee replacement Type of Exam?:Initial Additional signs and symptoms?:. Performed By: #### 4 [id number] #### LAB [address] [address] Maurice Coello M.D. [id number] BILIRUBIN TOTAL < Normal 0.0-1.3 [facility] Comment on above: Order Comment: Injur y/Trauma or Illness?:Illness/Other How long have you had these symptoms (acute/chronic)?:Acute Reason for exam?:sob. Hx of COPD History of cancer?:unknown Surgeries, chemotherapy, or radiation?:cholecystectomy, hysterectomy, oophrectomy, left knee replacement Type of Exam?:Initial Additional signs and symptoms?:. Performed By: #### 4 1976 #### LAB [address] [address] Maurice Coello M.D. [id number] Calcium [Mass/Vol] 9.0 mg/dL Normal 8.4-10.2 [facility] Comment on above: Order Comment: Injur y/Trauma or Illness?:Illness/Other How long have you had these symptoms (acute/chronic)?:Acute Reason for exam?:sob. Hx of COPD History of cancer?:unknown Surgeries, chemotherapy, or radiation?:cholecystectomy, hysterectomy, oophrectomy, left knee replacement Type of Exam?:Initial Additional signs and symptoms?:. Performed By: #### 4 6126 ####[facility] LAB [address] [address] Maurice Coello M.D. [id number] Chloride [Moles/Vol] 97 mmol/L Low 98-108 [facility] Comment on above: Order Comment: Injur y/Trauma or Illness?:Illness/Other How long have you had these symptoms (acute/chronic)?:Acute Reason for exam?:sob. Hx of COPD History of cancer?:unknown Surgeries, chemotherapy, or radiation?:cholecystectomy, hysterectomy, oophrectomy, left knee replacement Type of Exam?:Initial Additional signs and symptoms?:. Performed By: #### 4 6126 #### LAB [address] [address] Maurice Coello M.D. [id number] Creatinine [Mass/Vol] 2.18 mg/dL High 0.60-1.[address] [facility] Comment on above: Order Comment: Injur y/Trauma or Illness?:Illness/Other How long have you had these symptoms (acute/chronic)?:Acute Reason for exam?:sob. Hx of COPD History of cancer?:unknown Surgeries, chemotherapy, or radiation?:cholecystectomy, hysterectomy, oophrectomy, left knee replacement Type of Exam?:Initial Additional signs and symptoms?:. Performed By: #### 4 6126 #### LAB [address] [address] Maurice Coello M.D. [id number] EGFR 24 mL/min/1.73 m2 Low >=60 [facility] Comment on above: Order Comment: Injur y/Trauma or Illness?:Illness/Other How long have you had these symptoms (acute/chronic)?:Acute Reason for exam?:sob. Hx of COPD History of cancer?:unknown Surgeries, chemotherapy, or radiation?:cholecystectomy, hysterectomy, oophrectomy, left knee replacement Type of Exam?:Initial Additional signs and symptoms?:. Result Comment: Ericka rodriguez GFR was calculated using the 2020 CKD-EPI creatinine equation. Performed By: #### 4 6174 #### LAB [address] [address] Maurice Coello M.D. [id number] Glucose [Mass/Vol] 92 mg/dL Normal 65-99 [facility] Comment on above: Order Comment: Injur y/Trauma or Illness?:Illness/Other How long have you had these symptoms (acute/chronic)?:Acute Reason for exam?:sob. Hx of COPD History of cancer?:unknown Surgeries, chemotherapy, or radiation?:cholecystectomy, hysterectomy, oophrectomy, left knee replacement Type of Exam?:Initial Additional signs and symptoms?:. Performed By: #### 4 6126 #### LAB [address] [address] Maurice Coello M.D. [id number] HCO3 (Bld) [Moles/Vol] 28 mmol/L Normal 21-32 [facility] Comment on above: Order Comment: Injur y/Trauma or Illness?:Illness/Other How long have you had these symptoms (acute/chronic)?:Acute Reason for exam?:sob. Hx of COPD History of cancer?:unknown Surgeries, chemotherapy, or radiation?:cholecystectomy, hysterectomy, oophrectomy, left knee replacement Type of Exam?:Initial Additional signs and symptoms?:. Performed By: #### 4 6126 #### LAB [address] [address] Maurice Coello M.D. [id number] Potassium [Moles/Vol] 5.1 mmol/L Normal 3.5-5.[address] [facility] Comment on above: Order Comment: Injur y/Trauma or Illness?:Illness/Other How long have you had these symptoms (acute/chronic)?:Acute Reason for exam?:sob. Hx of COPD History of cancer?:unknown Surgeries, chemotherapy, or radiation?:cholecystectomy, hysterectomy, oophrectomy, left knee replacement Type of Exam?:Initial Additional signs and symptoms?:. Performed By: #### 4 6126 #### LAB [address] [address] Maurice Coello M.D. [id number] Protein [Mass/Vol] 7.2 g/dL Normal 6.0-8.0 [facility] Comment on above: Order Comment: Injur y/Trauma or Illness?:Illness/Other How long have you had these symptoms (acute/chronic)?:Acute Reason for exam?:sob. Hx of COPD History of cancer?:unknown Surgeries, chemotherapy, or radiation?:cholecystectomy, hysterectomy, oophrectomy, left knee replacement Type of Exam?:Initial Additional signs and symptoms?:. Performed By: #### 4 6126 #### LAB [address] [address] Maurice Coello M.D. [id number] Sodium [Moles/Vol] 134 mmol/L Low 135-145 [facility] Comment on above: Order Comment: Injur y/Trauma or Illness?:Illness/Other How long have you had these symptoms (acute/chronic)?:Acute Reason for exam?:sob. Hx of COPD History of cancer?:unknown Surgeries, chemotherapy, or radiation?:cholecystectomy, hysterectomy, oophrectomy, left knee replacement Type of Exam?:Initial Additional signs and symptoms?:. Performed By: #### 4 6126 #### LAB [address] [address] Maurice Coello M.D. [id number] Urea nitrogen [Mass/Vol] 38 mg/dL High 8-25 [facility] Comment on above: Order Comment: Injur y/Trauma or Illness?:Illness/Other How long have you had these symptoms (acute/chronic)?:Acute Reason for exam?:sob. Hx of COPD History of cancer?:unknown Surgeries, chemotherapy, or radiation?:cholecystectomy, hysterectomy, oophrectomy, left knee replacement Type of Exam?:Initial Additional signs and symptoms?:. Performed By: #### 4 6126 #### LAB [address] [address] Maurice Coello M.D. [id number] Urea nitrogen/Creatinine [Mass ratio] 17.4 mg/mg Normal 10.0-20.0 [facility] Comment on above: Order Comment: Injur y/Trauma or Illness?:Illness/Other How long have you had these symptoms (acute/chronic)?:Acute Reason for exam?:sob. Hx of COPD History of cancer?:unknown Surgeries, chemotherapy, or radiation?:cholecystectomy, hysterectomy, oophrectomy, left knee replacement Type of Exam?:Initial Additional signs and symptoms?:. Performed By: #### 4 6126 ####[facility] LAB [address] [place], [place] [address] Maurice Coello M.D. [id number] CT KIDNEY STONEon 11-12-2024 CT KIDNEY STONE [...] MonNov 12, 2024 7:20:28 PM EST Normal [facility] Comment on above: Order Comment: Injur y/Trauma or Illness?:Illness/Other How long have you had these symptoms (acute/chronic)?:Acute Reason for exam?:Right sided abdominal/flank pain x2 weeks Type of Exam?:Initial Additional signs and symptoms?:Denies N/V/D, CKD hx thus no IV contrast ED Prov Noteon 11-12-2024 ED Prov Note ED PROVIDER NOTE [facility] NAME: Radha Shafer AGE: 64 y.o. : 1960 VISIT DATE: 11/12/2024 CSN: [id number] PCP: No, Physician Chief Complaint Patient presents with Abdominal [...] ALTEMEIER PROCEDURE; Surgeon: Jada Vargas MD; [place] [facility] [place] Service: Colorectal CARDIAC CATHETERIZATION N/A 09/26/2022 Procedure: Coronary Angiogram; Surgeon: Tor Long MD; Location: [facility]; Service: Cardiovascular CARDIOVASCULAR STRESS TEST CHOLECYSTECTOMY COLONOSCOPY with biopsies COLONOSCOPY N/A 02/17/2022 Procedure: COLONOSCOPY; Surgeon: Jada Vargas MD; [place] [facility] [place] Service: Colorectal EGD N/A 08/15/2022 Procedure: ESOPHAGOGASTRODUODENOSC OPY WITH BIOPSY; Surgeon: Tyshawn Santos MD; Location: Endo; Service: Gastroenterology GALLBLADDER HC LEFT HEART CATH N/A 09/26/2022 Procedure: Left Heart Cath; Surgeon: Tor Long MD; Location: [facility]; Service: Cardiovascular HYSTERECTOMY JOINT REPLACEMENT Left knee ORTHOPEDIC SURGERY r wrist surgery, left ankle, right rotator cuff ROTATOR CUFF REPAIR Right SIGMOIDOSCOPY FLEXIBLE N/A 06/23/2022 Procedure: SIGMOIDOSCOPY FLEXIBLE WITH BIOPSY; Surgeon: Tyshawn Santos MD; Location: Endo; Service: Gastroenterology THYROIDECTOMY N/A 07/15/2015 Procedure: TOTAL THYROIDECTOMY; Surgeon: Lopez Alonso MD; Location: [facility]; Service: US ECHO TRANSTHORACIC FOLLOWUP [...] Socioeconomic History Marital status: Occupational History Occupation: [employer] 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 Normal [facility] LIPASEon 11-12-2024 Lipase [Catalytic activity/Vol] 66 U/L High [facility] Comment on above: Performed By: #### 4 6086 #### LAB [address] [address] Maurice Coello M.D. [id number] URINALYSISon 11-12-2024 BACTERIA, URINE Rare Abnormal None Seen [facility] Comment on above: Order Comment: Micro scopic examination is performed on all urinalysis samples and only positive findings are reported. The test for blood on the chemical analytic portion of urinalysis may also be positive due to hemoglobinuria and myoglobinuria and if red blood cells are present they are quantified by microscopic examination. Performed By: #### 4 6625 #### LAB [address] [address] Maurice Coello M.D. [id number] BILIRUBIN, URINE Negative Normal Negative [facility] Comment on above: Order Comment: Micro scopic examination is performed on all urinalysis samples and only positive findings are reported. The test for blood on the chemical analytic portion of urinalysis may also be positive due to hemoglobinuria and myoglobinuria and if red blood cells are present they are quantified by microscopic examination. Performed By: #### 4 6625 #### LAB [address] [address] Maurice Coello M.D. [id number] BLOOD, URINE Negative Normal Negative [facility] Comment on above: Order Comment: Micro scopic examination is performed on all urinalysis samples and only positive findings are reported. The test for blood on the chemical analytic portion of urinalysis may also be positive due to hemoglobinuria and myoglobinuria and if red blood cells are present they are quantified by microscopic examination. Performed By: #### 4 6625 #### LAB [address] [address] Maurice Coello M.D. [id number] Clarity (U) Clear Normal Clear [facility] Comment on above: Order Comment: Micro scopic examination is performed on all urinalysis samples and only positive findings are reported. The test for blood on the chemical analytic portion of urinalysis may also be positive due to hemoglobinuria and myoglobinuria and if red blood cells are present they are quantified by microscopic examination. Performed By: #### 4 6625 #### LAB [address] [place] [address] Maurice Coello M.D. [id number] Color (U) Colorless Normal Colorless, Yellow [facility] Comment on above: Order Comment: Micro scopic examination is performed on all urinalysis samples and only positive findings are reported. The test for blood on the chemical analytic portion of urinalysis may also be positive due to hemoglobinuria and myoglobinuria and if red blood cells are present they are quantified by microscopic examination. Performed By: #### 4 6625 #### LAB [address] [address] Maurice Coello M.D. [id number] Glucose Ql (U) Negative Normal Negative, >=1000 [facility] Comment on above: Order Comment: Micro scopic examination is performed on all urinalysis samples and only positive findings are reported. The test for blood on the chemical analytic portion of urinalysis may also be positive due to hemoglobinuria and myoglobinuria and if red blood cells are present they are quantified by microscopic examination. Performed By: #### 4 [id number] #### LAB [address] [address] Maurice Coello M.D. [id number] Hyaline casts LM Ql (Urine sed) 0-2 Normal 0-2 [facility] Comment on above: Order Comment: Micro scopic examination is performed on all urinalysis samples and only positive findings are reported. The test for blood on the chemical analytic portion of urinalysis may also be positive due to hemoglobinuria and myoglobinuria and if red blood cells are present they are quantified by microscopic examination. Performed By: #### 4 [id number] #### LAB [address] [place] [address] Maurice Coello M.D. [id number] Ketones Ql (U) Negative Normal Negative [facility] Comment on above: Order Comment: Micro scopic examination is performed on all urinalysis samples and only positive findings are reported. The test for blood on the chemical analytic portion of urinalysis may also be positive due to hemoglobinuria and myoglobinuria and if red blood cells are present they are quantified by microscopic examination. Performed By: #### 4 [id number] #### LAB [address] [place] [address] Maurice Coello M.D. [id number] Leukocyte esterase Test strip Ql (U) Trace Abnormal Negative [facility] Comment on above: Order Comment: Micro scopic examination is performed on all urinalysis samples and only positive findings are reported. The test for blood on the chemical analytic portion of urinalysis may also be positive due to hemoglobinuria and myoglobinuria and if red blood cells are present they are quantified by microscopic examination. Performed By: #### 4 [id number] #### LAB [address] [place] [address] Maurice Coello M.D. [id number] NITRITE, URINE Negative Normal Negative [facility] Comment on above: Order Comment: Micro scopic examination is performed on all urinalysis samples and only positive findings are reported. The test for blood on the chemical analytic portion of urinalysis may also be positive due to hemoglobinuria and myoglobinuria and if red blood cells are present they are quantified by microscopic examination. Performed By: #### 4 6625 #### LAB [address] [place] [address] Maurice Coello M.D. [id number] pH (U) 5.0 [pH] Normal 5.0-7.0 [facility] Comment on above: Order Comment: Micro scopic examination is performed on all urinalysis samples and only positive findings are reported. The test for blood on the chemical analytic portion of urinalysis may also be positive due to hemoglobinuria and myoglobinuria and if red blood cells are present they are quantified by microscopic examination. Performed By: #### 4 6625 #### LAB [address] [address] Maurice Coello M.D. [id number] PROTEIN, URINE Negative Normal Negative [facility] Comment on above: Order Comment: Micro scopic examination is performed on all urinalysis samples and only positive findings are reported. The test for blood on the chemical analytic portion of urinalysis may also be positive due to hemoglobinuria and myoglobinuria and if red blood cells are present they are quantified by microscopic examination. Performed By: #### 4 6625 #### LAB [address] [address] Maurice Coello M.D. [id number] RBC, URINE < Normal 0-3 [facility] Comment on above: Order Comment: Micro scopic examination is performed on all urinalysis samples and only positive findings are reported. The test for blood on the chemical analytic portion of urinalysis may also be positive due to hemoglobinuria and myoglobinuria and if red blood cells are present they are quantified by microscopic examination. Performed By: #### 4 6625 #### LAB [address] [address] Maurice Coello M.D. [id number] Specific gravity (U) [Rel density] 1.009 Normal 1.005-1.025 [facility] Comment on above: Order Comment: Micro scopic examination is performed on all urinalysis samples and only positive findings are reported. The test for blood on the chemical analytic portion of urinalysis may also be positive due to hemoglobinuria and myoglobinuria and if red blood cells are present they are quantified by microscopic examination. Performed By: #### 4 [id number] #### LAB [address] [address] Maurice Coello M.D. [id number] SQUAMOUS EPITHELIAL 3 /hpf Normal 0-4 [facility] Comment on above: Order Comment: Micro scopic examination is performed on all urinalysis samples and only positive findings are reported. The test for blood on the chemical analytic portion of urinalysis may also be positive due to hemoglobinuria and myoglobinuria and if red blood cells are present they are quantified by microscopic examination. Performed By: #### 4 [id number] #### LAB [address] [address] Maurice Coello M.D. [id number] TRANSITIONAL EPITHELIAL 1 /hpf Normal 0-1 [facility] Comment on above: Order Comment: Micro scopic examination is performed on all urinalysis samples and only positive findings are reported. The test for blood on the chemical analytic portion of urinalysis may also be positive due to hemoglobinuria and myoglobinuria and if red blood cells are present they are quantified by microscopic examination. Performed By: #### 4 [id number] #### LAB [address] [place] [address] Maurice Coello M.D. [id number] UROBILINOGEN, URINE <2.0 Normal <2.0 [facility] Comment on above: Order Comment: Micro scopic examination is performed on all urinalysis samples and only positive findings are reported. The test for blood on the chemical analytic portion of urinalysis may also be positive due to hemoglobinuria and myoglobinuria and if red blood cells are present they are quantified by microscopic examination. Performed By: #### 4 6625 #### LAB [address] [place] [address] Maurice Coello M.D. [id number] WBC LM.HPF (Urine sed) [#/Area] 2 /[HPF] Normal 0-5 [facility] Comment on above: Order Comment: Micro scopic examination is performed on all urinalysis samples and only positive findings are reported. The test for blood on the chemical analytic portion of urinalysis may also be positive due to hemoglobinuria and myoglobinuria and if red blood cells are present they are quantified by microscopic examination. Performed By: #### 4 [id number] #### LAB [address] [place] [address] Maurice Coello M.D. [id number] Internal Medicine Office Vis tyshawn 09-30-2024 Internal Medicine Office Visit [facility] [address] [place], [place] [address] OFFICE VISIT Date of Service: 10/16/24 MR#: [id number] Acct: [id number] Name: RADHA SHAFER Rep #: [id number] : 1960 Provider: Dr. Jennifer villanueva MD Age/Sex: 64/F [place] [facility] [place]: Signed Intake Vital Signs 08/15/24 15:04 [...] Visit Reasons: HOSP FOLLOW UP Chief Complaint: Ad Setter Required: No Is patient in pain?: No [...] for hospital f/u, had copd exacerbation at [facility] went in on 09/21- 09/25. [facility] Medical History Low back pain Anxiety Depression [...] occupational s (more content not included)... Normal [facility] CBC Auto Differentialon 09-06 Basophils (Bld) [#/Vol] 0.01 10*3/uL [facility] Basophils/100 WBC (Bld) 0.1 % [facility] Eosinophils (Bld) [#/Vol] 0 10*3/uL [facility] Eosinophils/100 WBC (Bld) 0 % [facility] Erythrocyte distribution width (RBC) [Entitic vol] 14.5 % 11.6 - 14.8 % [facility] Hematocrit (Bld) [Volume fraction] 34.2 % Low 36.0 - 46.0 % [facility] Hemoglobin (Bld) [Mass/Vol] 10.2 g/dL Low 12.0 - 16.0 g/dL [facility] Immature granulocytes (Bld) [#/Vol] 0.08 10*3/uL [facility] Immature granulocytes/100 WBC (Bld) 0.7 % [facility] Comment on above: The IG parameter is the percentage of metamyelocytes, myelocytes and promyelocytes. An immature granulocyte count (IG) of 1% or more suggests the possibility of infection, an IG count of 3% is very likely related to an infection. Interpretation and review of laboratory results Abnormal [facility] Lymphocytes (Bld) [#/Vol] 0.72 10*3/uL Low [facility] Lymphocytes/100 WBC (Bld) 6.4 % [facility] MCH (RBC) [Entitic mass] 25.9 pg Low 26.0 - 34.0 pg [facility] MCHC (RBC) [Mass/Vol] 29.8 g/dL Low 31.0 - 37.0 g/dL [facility] MCV (RBC) [Entitic vol] 86.8 fL 80.0 - 100.0 fL [facility] Monocytes (Bld) [#/Vol] 0.32 10*3/uL [facility] Monocytes/100 WBC (Bld) 2.9 % [facility] Neutrophils (Bld) [#/Vol] 10.09 10*3/uL High [facility] Neutrophils/100 WBC (Bld) 89.9 % [facility] Nucleated RBC (Bld) [#/Vol] 0 10*3/uL [facility] Nucleated RBC/100 WBC (Bld) [Ratio] 0 % [facility] Platelet mean volume (Bld) [Entitic vol] 10.2 fL 9.4 - 12.4 fL [facility] Platelets (Bld) [#/Vol] 231 10*3/uL [facility] RBC (Bld) [#/Vol] 3.94 10*6/uL Low [facility] WBC (Bld) [#/Vol] 11.22 10*3/uL [facility] CBC WITH AUTO DIFFERENTIALon 09-23-2024 AUTO NRBC 0.0 % Normal [facility] Comment on above: Performed By: #### L [id number] #### LAB [address] [place], [place] [address] Maurice Coello M.D. [id number] AUTO NRBC ABS COUNT 0.00 K/mcL Normal 0.00-0.00 [facility] Comment on above: Performed By: #### L [id number] ####[facility] LAB [address] [place], [place] [address] Maurice Coello M.D. [id number] BASOPHILS ABSOLUTE COUNT 0.01 K/mcL Normal 0.00-0.30 [facility] Comment on above: Performed By: #### L [id number] #### LAB [address] [place], [place] [address] Maurice Coello M.D. [id number] Basophils/100 WBC (Bld) 0.1 % Normal [facility] Comment on above: Performed By: #### L [id number] #### LAB [address] [place] [address] Maurice Coello M.D. [id number] Eosinophils (Bld) [#/Vol] 0.00 10*3/uL Normal 0.00-0.50 [facility] Comment on above: Performed By: #### L [id number] #### LAB [address] [place] [address] Maurice Coello M.D. [id number] Eosinophils/100 WBC (Bld) 0.0 % Normal [facility] Comment on above: Performed By: #### L [id number] #### LAB [address] [place] [address] Maurice Coello M.D. [id number] Erythrocyte distribution width (RBC) [Ratio] 14.5 % Normal 11.6-14.8 [facility] Comment on above: Performed By: #### L [id number] #### LAB [address] [place] [address] Maurice Coello M.D. [id number] Hematocrit (Bld) [Volume fraction] 34.2 % Low 36.0-46.0 [facility] Comment on above: Performed By: #### L [id number] #### LAB [address] [place] [address] Maurice Coello M.D. [id number] Hemoglobin (Bld) [Mass/Vol] 10.2 g/dL Low 12.0-16.0 [facility] Comment on above: Performed By: #### L [id number] ####[facility] LAB [address] [place] [address] Maurice Coello M.D. [id number] IG ABSOLUTE 0.08 K/mcL Normal 0.00-0.30 [facility] Comment on above: Performed By: #### L [id number] #### LAB [address] [place] [address] Maurice Coello M.D. [id number] IG PERCENT 0.70 % Normal [facility] Comment on above: Result Comment: The IG parameter is the percentage of metamyelocytes, myelocytes and promyelocytes. An immature granulocyte count (IG) of 1% or more suggests the possibility of infection, an IG count of 3% is very likely related to an infection. Performed By: #### L [id number] #### LAB [address] [place] [address] Maurice Coello M.D. [id number] Lymphocytes (Bld) [#/Vol] 0.72 10*3/uL Low 0.90-4.00 [facility] Comment on above: Performed By: #### L [id number] #### LAB [address] [place] [address] Maurice Coello M.D. [id number] Lymphocytes/100 WBC (Bld) 6.4 % [facility] Comment on above: Performed By: #### L [id number] #### LAB [address] [place] [address] Maurice Coello M.D. [id number] MCH (RBC) [Entitic mass] 25.9 pg Low 26.0-34.0 [facility] Comment on above: Performed By: #### L [id number] #### LAB [address] [place] [address] Maurice Coello M.D. [id number] MCV (RBC) [Entitic vol] 86.8 fL Normal 80.0-100.0 [facility] Comment on above: Performed By: #### L [id number] #### LAB [address] [place] [address] Maurice Coello M.D. [id number] MEAN CORPUSCULAR HEMOGLOBIN CONC 29.8 g/dL Low 31.0-37.0 [facility] Comment on above: Performed By: #### L [id number] #### LAB [address] [place] [address] Maurice Coello M.D. [id number] Monocytes (Bld) [#/Vol] 0.32 10*3/uL Normal 0.30-0.90 [facility] Comment on above: Performed By: #### L [id number] #### LAB [address] [place] [address] Maurice Coello M.D. [id number] Monocytes/100 WBC (Bld) 2.9 % Normal [facility] Comment on above: Performed By: #### L [id number] #### LAB [address] [place] [address] Maurice Coello M.D. [id number] NEUTROPHILS ABSOLUTE COUNT 10.09 K/mcL High 1.70-7.00 [facility] Comment on above: Performed By: #### L [id number] #### LAB [address] [place] [address] Maurice Coello M.D. [id number] Neutrophils/100 WBC (Bld) 89.9 % Normal [facility] Comment on above: Performed By: #### L [id number] #### LAB [address] [place] [address] Maurice Coello M.D. [id number] Platelet mean volume (Bld) [Entitic vol] 10.2 fL Normal 9.4-12.4 [facility] Comment on above: Performed By: #### L [id number] #### LAB [address] [place] [address] Maurice Coello M.D. [id number] Platelets (Bld) [#/Vol] 231 10*3/uL Normal 150-400 [facility] Comment on above: Performed By: #### L [id number] ####[facility] LAB [address] [place] [address] Maurice Coello M.D. [id number] RBC (Bld) [#/Vol] 3.94 10*6/uL Low 4.00-5.20 [facility] Comment on above: Performed By: #### L [id number] ####[facility] LAB [address] [place] [address] Maurice Coello M.D. [id number] WBC (Bld) [#/Vol] 11.22 10*3/uL High 4.50-11.00 [facility] Comment on above: Performed By: #### L [id number] #### LAB [address] [place] [id number] Maurice Coello M.D. [id number] CK [Catalytic activity/Vol]o n 09-23-2024 Interpretation and review of laboratory results Abnormal [facility] COMPREHENSIVE METABOLIC PANE Jett 09-23-2024 Albumin [Mass/Vol] 3.7 g/dL Normal 3.2-5.2 [facility] Comment on above: Order Comment: Injur y/Trauma or Illness?:Illness/Other How long have you had these symptoms (acute/chronic)?:Chronic Reason for exam?:A-fib [facility] TO READ Type of Exam?:Initial Additional signs and symptoms?:n Performed By: #### 4 [id number] #### LAB [address] [place] [address] Maurice Coello M.D. [id number] ALP [Catalytic activity/Vol] 82 U/L Normal 40-150 [facility] Comment on above: Order Comment: Injur y/Trauma or Illness?:Illness/Other How long have you had these symptoms (acute/chronic)?:Chronic Reason for exam?:A-fib [facility] TO READ Type of Exam?:Initial Additional signs and symptoms?:n Performed By: #### 4 [id number] #### LAB [address] [place] [address] Maurice Coello M.D. [id number] ALT [Catalytic activity/Vol] 17 U/L Normal 0-35 U/L [facility] Comment on above: Order Comment: Injur y/Trauma or Illness?:Illness/Other How long have you had these symptoms (acute/chronic)?:Chronic Reason for exam?:A-fib [facility] TO READ Type of Exam?:Initial Additional signs and symptoms?:n Performed By: #### 4 [id number] #### LAB [address] [place] [address] Maurice Coello M.D. [id number] Anion gap [Moles/Vol] 13 mmol/L Normal 10-[address] [facility] Comment on above: Order Comment: Injur y/Trauma or Illness?:Illness/Other How long have you had these symptoms (acute/chronic)?:Chronic Reason for exam?:A-fib [facility] TO READ Type of Exam?:Initial Additional signs and symptoms?:n Performed By: #### 4 [id number] #### LAB [address] [place] [address] Maurice Coello M.D. [id number] AST [Catalytic activity/Vol] 42 U/L High 0-35 U/L [facility] Comment on above: Order Comment: Injur y/Trauma or Illness?:Illness/Other How long have you had these symptoms (acute/chronic)?:Chronic Reason for exam?:A-fib [facility] TO READ Type of Exam?:Initial Additional signs and symptoms?:n Performed By: #### 4 6126 #### LAB [address] [place] [address] Maurice Coello M.D. [id number] BILIRUBIN TOTAL < Normal 0.0-1.3 [facility] Comment on above: Order Comment: Injur y/Trauma or Illness?:Illness/Other How long have you had these symptoms (acute/chronic)?:Chronic Reason for exam?:A-fib [facility] TO READ Type of Exam?:Initial Additional signs and symptoms?:n Performed By: #### 4 6126 #### LAB [address] [place] [address] Maurice Coello M.D. [id number] Calcium [Mass/Vol] 9.0 mg/dL Normal 8.4-10.2 [facility] Comment on above: Order Comment: Injur y/Trauma or Illness?:Illness/Other How long have you had these symptoms (acute/chronic)?:Chronic Reason for exam?:A-fib [facility] TO READ Type of Exam?:Initial Additional signs and symptoms?:n Performed By: #### 4 6126 #### LAB [address] [place] [id number] Maurice Coello M.D. [id number] Chloride [Moles/Vol] 98 mmol/L Normal 98-108 [facility] Comment on above: Order Comment: Injur y/Trauma or Illness?:Illness/Other How long have you had these symptoms (acute/chronic)?:Chronic Reason for exam?:A-fib [facility] TO READ Type of Exam?:Initial Additional signs and symptoms?:n Performed By: #### 4 6126 #### LAB [address] [place] [address] Maurice Coello M.D. [id number] Creatinine [Mass/Vol] 1.28 mg/dL High 0.60-1.[address] [facility] Comment on above: Order Comment: Injur y/Trauma or Illness?:Illness/Other How long have you had these symptoms (acute/chronic)?:Chronic Reason for exam?:A-fib [facility] TO READ Type of Exam?:Initial Additional signs and symptoms?:n Performed By: #### 4 6126 #### LAB [address] [place] [address] Maurice Ceollo M.D. [id number] EGFR 46 mL/min/1.73 m2 Low >=60 [facility] Comment on above: Order Comment: Injur y/Trauma or Illness?:Illness/Other How long have you had these symptoms (acute/chronic)?:Chronic Reason for exam?:A-fib [facility] TO READ Type of Exam?:Initial Additional signs and symptoms?:n Result Comment: Ericka mated GFR was calculated using the 2020 CKD-EPI creatinine equation. Performed By: #### 4 6177 #### LAB [address] [place] [address] Maurice Coello M.D. [id number] Glucose [Mass/Vol] 121 mg/dL High 65-99 [facility] Comment on above: Order Comment: Injur y/Trauma or Illness?:Illness/Other How long have you had these symptoms (acute/chronic)?:Chronic Reason for exam?:A-fib [facility] TO READ Type of Exam?:Initial Additional signs and symptoms?:n Performed By: #### 4 6126 #### LAB [address] [place] [address] Maurice Coello M.D. [id number] HCO3 (Bld) [Moles/Vol] 30 mmol/L Normal 21-32 [facility] Comment on above: Order Comment: Injur y/Trauma or Illness?:Illness/Other How long have you had these symptoms (acute/chronic)?:Chronic Reason for exam?:A-fib [facility] TO READ Type of Exam?:Initial Additional signs and symptoms?:n Performed By: #### 4 6126 #### LAB [address] [place] [address] Maurice Coello M.D. [id number] Potassium [Moles/Vol] 4.8 mmol/L Normal 3.5-5.[address] [facility] Comment on above: Order Comment: Injur y/Trauma or Illness?:Illness/Other How long have you had these symptoms (acute/chronic)?:Chronic Reason for exam?:A-fib [facility] TO READ Type of Exam?:Initial Additional signs and symptoms?:n Performed By: #### 4 6126 #### LAB [address] [place] [address] Maurice Coello M.D. [id number] Protein [Mass/Vol] 6.4 g/dL Normal 6.0-8.0 [facility] Comment on above: Order Comment: Injur y/Trauma or Illness?:Illness/Other How long have you had these symptoms (acute/chronic)?:Chronic Reason for exam?:A-fib [facility] TO READ Type of Exam?:Initial Additional signs and symptoms?:n Performed By: #### 4 6194 #### LAB [address] [place] [address] Maurice Coello M.D. [id number] Sodium [Moles/Vol] 136 mmol/L Normal 135-145 [facility] Comment on above: Order Comment: Injur y/Trauma or Illness?:Illness/Other How long have you had these symptoms (acute/chronic)?:Chronic Reason for exam?:A-fib [facility] TO READ Type of Exam?:Initial Additional signs and symptoms?:n Performed By: #### 4 6126 #### LAB [address] [place] [address] Maurice Coello M.D. [id number] Urea nitrogen [Mass/Vol] 24 mg/dL Normal 8-25 [facility] Comment on above: Order Comment: Injur y/Trauma or Illness?:Illness/Other How long have you had these symptoms (acute/chronic)?:Chronic Reason for exam?:A-fib [facility] TO READ Type of Exam?:Initial Additional signs and symptoms?:n Performed By: #### 4 6126 #### LAB [address] [place] [address] Maurice Coello M.D. [id number] Urea nitrogen/Creatinine [Mass ratio] 18.8 mg/mg Normal 10.0-20.0 [facility] Comment on above: Order Comment: Injur y/Trauma or Illness?:Illness/Other How long have you had these symptoms (acute/chronic)?:Chronic Reason for exam?:A-fib [facility] TO READ Type of Exam?:Initial Additional signs and symptoms?:n Performed By: #### 4 6126 #### LAB [address] [place] [address] Maurice Coello M.D. [id number] CPKon 09-23-2024 CPK 478 U/L High 40-170 [facility] Comment on above: Performed By: #### 4 8261 #### LAB [address] [place] [address] Maurice Coello M.D. [id number] CPK NO MBon 09-23-2024 CK [Catalytic activity/Vol] 478 U/L High 40 - 170 U/L [facility] Comprehensive metabolic 2000 panelOrdered By: Rachel Hobson on 09-23-2024 Albumin [Mass/Vol] 3.7 g/dL 3.2 - 5.2 g/dL [facility] ALP [Catalytic activity/Vol] 82 U/L 40 - 150 U/L [facility] ALT [Catalytic activity/Vol] 17 U/L 0-35 U/L [facility] Anion gap [Moles/Vol] 13 mmol/L 10 - 2 0 mmol/L [facility] AST [Catalytic activity/Vol] 42 U/L High 0-35 U/L [facility] Bilirubin [Mass/Vol] mg/dL 0.0 - 1 .3 mg/dL [facility] Calcium [Mass/Vol] 9 mg/dL 8.4 - 10. 2 mg/dL [facility] Chloride [Moles/Vol] 98 mmol/L 98 - 10 8 mmol/L [facility] Creatinine [Mass/Vol] 1.28 mg/dL High 0.60 - 1.10 mg/dL [facility] GFR/1.73 sq M.predicted CKD-EPI (S/P/Bld) [Vol rate/Area] 46 Low - PINF [facility] Comment on above: Estimated GFR was ca lculated using the 2020 CKD-EPI creatinine equation. Glucose [Mass/Vol] 121 mg/dL High 65 - 99 mg/dL [facility] HCO3 [Moles/Vol] 30 mmol/L 21 - 32 mmol/L [facility] Interpretation and review of laboratory results Abnormal [facility] Potassium [Moles/Vol] 4.8 mmol/L 3.5 - 5.1 mmol/L [facility] Protein [Mass/Vol] 6.4 g/dL 6.0 - 8.0 g/dL [facility] Sodium [Moles/Vol] 136 mmol/L 135 - 145 mmol/L [facility] Urea nitrogen [Mass/Vol] 24 mg/dL 8 - 25 mg/dL [facility] Urea nitrogen/Creatinine [Mass ratio] 18.8 mg/mg 10.0 - 20.0 [facility] has implemented the eGFR calculation approach that does not have a coefficient for race that conforms to the NKF-ASN Task Force Recommendations. [facility] ECHOCARDIOGRAM COMPLETEon ECHOCARDIOGRAM COMPLETE Patient Info Name: RADHA SHAFER Age: 64 years : 1960 Gender: Female Ht: 165 cm Wt: 104 kg BSA: 2.23 m2 HR: 73 bpm BP: 153 / 74 mmHg Heart Rhythm: Sinus Rhythm Technical Quality: Fair Exam Date: 09/23/2024 2:31 PM Patient Status: Inpatient It Applications Analyst: Martin Mace RCDS Exam Type: ECHOCARDIOGRAM COMPLETE Study Info Indications - Dyspnea R06.00 - Dyspnea, unspecified Referring Physician: ALEKSANDAR Mccoy; [id number] BMI: 38.11 kg/m2 Summary 1. Normal LV [...] Hypertension: Yes Diabetic Therapy: Oral Myocardial Infarction ([place]): No Obesity: Yes Date of Last Tobacco [...] mmHg MV VTI 36 cm MV Decel [place] 408 cm/s2 MV PHT 67 ms MV [...] cm/s >=9.5 (more content not included)... Normal [facility] Echo completeOrdered By: Sravani Back on 09-23-2024 Aortic valve area 3.97062 cm [facility] Work Phone: AV mean gradient 3.21933 mmHg [facility] Work Phone: AV peak gradient 5.79697 mmHg [facility] Work Phone: EF [phone] % [facility] Work Phone: [facility] Work Phone: Echo completeon 09-23-2024 Patient Info Name: RADHA SHAFER Age: 64 years : 1960 Gender: Female Ht: 165 cm Wt: 104 kg BSA: 2.23 m2 HR: 73 bpm BP: 153 / 74 mmHg Heart Rhythm: Sinus Rhythm Technical Quality: Fair Exam Date: 09/23/2024 2:31 PM Patient Status: Inpatient It Applications Analyst: Martin Mace RCDS Exam Type: ECHOCARDIOGRAM COMPLETE Study Info Indications - Dyspnea R06.00 - Dyspnea, unspecified Referring Physician: ALEKSANDAR Mccoy; [id number] BMI: 38.11 kg/m2 Summary 1. Normal LV [...] Hypertension: Yes Diabetic Therapy: Oral Myocardial Infarction ([place]): No Obesity: Yes Date of Last Tobacco [...] Date: 09/23/2024 2:31 PM Patient Status: Inpatient It Applications Analyst: Martin Mace RCDS Exam Type: ECHOCARDIOGRAM COMPLETE Study Info Indications - Dyspnea R06.00 - Dyspnea, unspecified Referring Physician: ALEKSANDAR Mccoy; [id number] BMI: 38.11 kg/m2 Summary 1. Normal LV [...] Hypertension: Yes Diabetic Therapy: Oral Myocardial Infarction ([place]): No Obesity: Yes Date of Last Tobacco [...] mmHg MV VTI 36 cm MV Decel [place] 408 cm/s2 MV PHT 67 ms MV [...] Annular TDI ------ (more content not included)... [facility] MAGNESIUM LEVELon 09-23-2024 Magnesium [Mass/Vol] 2.0 mg/dL Normal 1.6-2.4 [facility] Comment on above: Performed By: #### 4 6109 #### LAB [address] [place] [address] Maurice Coello M.D. [id number] Magnesium Levelon 09-23-2024 Magnesium [Mass/Vol] 2 mg/dL 1.6 - 2 .4 mg/dL [facility] Magnesium [Mass/Vol]on 09-23 Interpretation and review of laboratory results Normal [facility] NT PRO BNPon 09-23-2024 Natriuretic peptide B (Bld) [Mass/Vol] 2680 pg/mL High 0-300 [facility] Comment on above: Order Comment: Injur y/Trauma or Illness?:Illness/Other How long have you had these symptoms (acute/chronic)?:Chronic Reason for exam?:A-fib [facility] TO READ Type of Exam?:Initial Additional signs and symptoms?:n Performed By: #### 4 7395 #### LAB [address] [place], [place] [address] Maurice Coello M.D. [id number] NT Pro BNPon 09-23-2024 Natriuretic peptide.B prohormone N-Terminal [Mass/Vol] 2680 pg/mL High 0 - 300 pg/mL [facility] Natriuretic peptide.B prohor curly N-Terminal [Mass/Vol]on 09-23-2024 Interpretation and review of laboratory results Abnormal [facility] Pride Study Cut-offs Rule In: < /= 50 Years >450 pg/mL 51 Years - 75 Years >900 pg/mL 76 Years - 99 Years >1800 pg/mL Rule Out: All patients <300 pg/mL [facility] No Panel InformationOrdered By: Rachel Hobson on 09-23-2024 [facility] BASIC METABOLIC PANELon 09-06 Anion gap [Moles/Vol] 16 mmol/L Normal 10-[address] [facility] Comment on above: Order Comment: Injur y/Trauma or Illness?:Illness/Other How long have you had these symptoms (acute/chronic)?:Acute Reason for exam?:sob. Hx of COPD History of cancer?:unknown Surgeries, chemotherapy, or radiation?:cholecystectomy, hysterectomy, oophrectomy, left knee replacement Type of Exam?:Initial Additional signs and symptoms?:. Performed By: #### 4 6124 #### LAB [address] [place] [address] Maurice Coello M.D. [id number] Calcium [Mass/Vol] 8.3 mg/dL Low 8.4-10.2 [facility] Comment on above: Order Comment: Injur y/Trauma or Illness?:Illness/Other How long have you had these symptoms (acute/chronic)?:Acute Reason for exam?:sob. Hx of COPD History of cancer?:unknown Surgeries, chemotherapy, or radiation?:cholecystectomy, hysterectomy, oophrectomy, left knee replacement Type of Exam?:Initial Additional signs and symptoms?:. Performed By: #### 4 6146 #### LAB [address] [place], [place] [address] Maurice Coello M.D. [id number] Chloride [Moles/Vol] 93 mmol/L Low 98-108 [facility] Comment on above: Order Comment: Injur y/Trauma or Illness?:Illness/Other How long have you had these symptoms (acute/chronic)?:Acute Reason for exam?:sob. Hx of COPD History of cancer?:unknown Surgeries, chemotherapy, or radiation?:cholecystectomy, hysterectomy, oophrectomy, left knee replacement Type of Exam?:Initial Additional signs and symptoms?:. Performed By: #### 4 6124 #### LAB [address] [place] [address] Maurice Coello M.D. [id number] Creatinine [Mass/Vol] 1.75 mg/dL High 0.60-1.[address] [facility] Comment on above: Order Comment: Injur y/Trauma or Illness?:Illness/Other How long have you had these symptoms (acute/chronic)?:Acute Reason for exam?:sob. Hx of COPD History of cancer?:unknown Surgeries, chemotherapy, or radiation?:cholecystectomy, hysterectomy, oophrectomy, left knee replacement Type of Exam?:Initial Additional signs and symptoms?:. Performed By: #### 4 6124 #### LAB [address] [place] [address] Maurice Coello M.D. [id number] EGFR 32 mL/min/1.73 m2 Low >=60 [facility] Comment on above: Order Comment: Injur [...] By: #### 4 6124 #### LAB [address] [place] [address] Maurice Coello M.D. [id number] Glucose [Mass/Vol] 272 mg/dL High 65-99 [facility] Comment on above: Order Comment: Injur y/Trauma or Illness?:Illness/Other How long have you had these symptoms (acute/chronic)?:Acute Reason for exam?:sob. Hx of COPD History of cancer?:unknown Surgeries, chemotherapy, or radiation?:cholecystectomy, hysterectomy, oophrectomy, left knee replacement Type of Exam?:Initial Additional signs and symptoms?:. Performed By: #### 4 6121 #### LAB [address] [place] [address] Maurice Coello M.D. [id number] HCO3 (Bld) [Moles/Vol] 29 mmol/L Normal 21-32 [facility] Comment on above: Order Comment: Injur y/Trauma or Illness?:Illness/Other How long have you had these symptoms (acute/chronic)?:Acute Reason for exam?:sob. Hx of COPD History of cancer?:unknown Surgeries, chemotherapy, or radiation?:cholecystectomy, hysterectomy, oophrectomy, left knee replacement Type of Exam?:Initial Additional signs and symptoms?:. Performed By: #### 4 6124 #### LAB [address] [place] [address] Maurice Coello M.D. [id number] Potassium [Moles/Vol] 5.0 mmol/L Normal 3.5-5.[address] [facility] Comment on above: Order Comment: Injur y/Trauma or Illness?:Illness/Other How long have you had these symptoms (acute/chronic)?:Acute Reason for exam?:sob. Hx of COPD History of cancer?:unknown Surgeries, chemotherapy, or radiation?:cholecystectomy, hysterectomy, oophrectomy, left knee replacement Type of Exam?:Initial Additional signs and symptoms?:. Performed By: #### 4 6107 ####[facility] LAB [address] [place] [address] Maurice Coello M.D. [id number] Sodium [Moles/Vol] 133 mmol/L Low 135-145 [facility] Comment on above: Order Comment: Injur y/Trauma or Illness?:Illness/Other How long have you had these symptoms (acute/chronic)?:Acute Reason for exam?:sob. Hx of COPD History of cancer?:unknown Surgeries, chemotherapy, or radiation?:cholecystectomy, hysterectomy, oophrectomy, left knee replacement Type of Exam?:Initial Additional signs and symptoms?:. Performed By: #### 4 6127 #### LAB [address] [place] [address] Maurice Coello M.D. [id number] Urea nitrogen [Mass/Vol] 31 mg/dL High 8-25 [facility] Comment on above: Order Comment: Injur y/Trauma or Illness?:Illness/Other How long have you had these symptoms (acute/chronic)?:Acute Reason for exam?:sob. Hx of COPD History of cancer?:unknown Surgeries, chemotherapy, or radiation?:cholecystectomy, hysterectomy, oophrectomy, left knee replacement Type of Exam?:Initial Additional signs and symptoms?:. Performed By: #### 4 [id number] #### LAB [address] [place], [place] [address] Maurice Coello M.D. [id number] Urea nitrogen/Creatinine [Mass ratio] 17.7 mg/mg Normal 10.0-20.0 [facility] Comment on above: Order Comment: Injur y/Trauma or Illness?:Illness/Other How long have you had these symptoms (acute/chronic)?:Acute Reason for exam?:sob. Hx of COPD History of cancer?:unknown Surgeries, chemotherapy, or radiation?:cholecystectomy, hysterectomy, oophrectomy, left knee replacement Type of Exam?:Initial Additional signs and symptoms?:. Performed By: #### 4 [id number] #### LAB [address] [place] [address] Maurice Coello M.D. [id number] Bacteria identified Aer cx N om (Sput)Ordered By: Nahum Coello on 09-22-2024 Microscopic observation Gram stain Nom (Sput) Specimen screened and found unsatisfactory for culture. [facility] Basic metabolic 2000 panelon 09-22-2024 Anion gap [Moles/Vol] 16 mmol/L 10 - 2 0 mmol/L [facility] Calcium [Mass/Vol] 8.3 mg/dL Low 8.4 - 10. 2 mg/dL [facility] Chloride [Moles/Vol] 93 mmol/L Low 98 - 10 8 mmol/L [facility] Creatinine [Mass/Vol] 1.75 mg/dL High 0.60 - 1.10 mg/dL [facility] GFR/1.73 sq M.predicted CKD-EPI (S/P/Bld) [Vol rate/Area] 32 Low - PINF [facility] Comment on above: Estimated GFR was ca lculated using the 2020 CKD-EPI creatinine equation. Glucose [Mass/Vol] 272 mg/dL High 65 - 99 mg/dL [facility] HCO3 [Moles/Vol] 29 mmol/L 21 - 32 mmol/L [facility] Potassium [Moles/Vol] 5 mmol/L 3.5 - 5.1 mmol/L [facility] Sodium [Moles/Vol] 133 mmol/L Low 135 - 145 mmol/L [facility] Urea nitrogen [Mass/Vol] 31 mg/dL High 8 - 25 mg/dL [facility] Urea nitrogen/Creatinine [Mass ratio] 17.7 mg/mg 10.0 - 20.0 [facility] y Services has implemented the eGFR calculation approach that does not have a coefficient for race that conforms to the NKF-ASN Task Force Recommendations. [facility] CBCon 09-22-2024 AUTO NRBC 0.0 % Normal [facility] Comment on above: Performed By: #### L [id number] #### [facility] LAB [address] [place] [address] Maurice Coello M.D. [id number] AUTO NRBC ABS COUNT 0.00 K/mcL Normal 0.00-0.00 [facility] Comment on above: Performed By: #### L [id number] #### [facility] LAB [address] [place] [address] Maurice Coello M.D. [id number] Erythrocyte distribution width (RBC) [Ratio] 14.3 % Normal 11.6-14.8 [facility] Comment on above: Performed By: #### L [id number] #### [facility] LAB [address] [place] [address] Maurice Coello M.D. [id number] Hematocrit (Bld) [Volume fraction] 35.1 % Low 36.0-46.0 [facility] Comment on above: Performed By: #### L [id number] #### LAB [address] [place] [address] Maurice Coello M.D. [id number] Hemoglobin (Bld) [Mass/Vol] 10.3 g/dL Low 12.0-16.0 [facility] Comment on above: Performed By: #### L [id number] #### [facility] [address] [place] [address] Maurice Coello M.D. [id number] MCH (RBC) [Entitic mass] 26.3 pg Normal 26.0-34.0 [facility] Comment on above: Performed By: #### L [id number] #### LAB [address] [place] [address] Maurice Coello M.D. [id number] MCV (RBC) [Entitic vol] 89.5 fL Normal 80.0-100.0 [facility] Comment on above: Performed By: #### L [id number] #### LAB [address] [place] [address] Maurice Coello M.D. [id number] MEAN CORPUSCULAR HEMOGLOBIN CONC 29.3 g/dL Low 31.0-37.0 [facility] Comment on above: Performed By: #### L [id number] #### LAB [address] [place] [address] Maurice Coello M.D. [id number] Platelet mean volume (Bld) [Entitic vol] 10.3 fL Normal 9.4-12.4 [facility] Comment on above: Performed By: #### L [id number] #### [facility] LAB [address] [place] [address] Maurice Coello M.D. [id number] Platelets (Bld) [#/Vol] 194 10*3/uL Normal 150-400 [facility] Comment on above: Performed By: #### L [id number] #### LAB [address] [place] [address] Maurice Coello M.D. [id number] RBC (Bld) [#/Vol] 3.92 10*6/uL Low 4.00-5.20 [facility] Comment on above: Performed By: #### L [id number] #### [facility] LAB [address] [place] [address] Maurice Coello M.D. [id number] WBC (Bld) [#/Vol] 7.07 10*3/uL Normal 4.50-11.00 [facility] Comment on above: Performed By: #### L [id number] #### [facility] LAB [address] [place] [address] Maurice Coello M.D. [id number] CBC panel Auto (Bld)on 09-22 Erythrocyte distribution width (RBC) [Entitic vol] 14.3 % 11.6 - 14.8 % [facility] Hematocrit (Bld) [Volume fraction] 35.1 % Low 36.0 - 46.0 % [facility] Hemoglobin (Bld) [Mass/Vol] 10.3 g/dL Low 12.0 - 16.0 g/dL [facility] Interpretation and review of laboratory results Abnormal [facility] MCH (RBC) [Entitic mass] 26.3 pg 26.0 - 34.0 pg [facility] MCHC (RBC) [Mass/Vol] 29.3 g/dL Low 31.0 - 37.0 g/dL [facility] MCV (RBC) [Entitic vol] 89.5 fL 80.0 - 100.0 fL [facility] Nucleated RBC (Bld) [#/Vol] 0 10*3/uL [facility] Nucleated RBC/100 WBC (Bld) [Ratio] 0 % [facility] Platelet mean volume (Bld) [Entitic vol] 10.3 fL 9.4 - 12.4 fL [facility] Platelets (Bld) [#/Vol] 194 10*3/uL [facility] RBC (Bld) [#/Vol] 3.92 10*6/uL Low [facility] WBC (Bld) [#/Vol] 7.07 10*3/uL [facility] ealth [facility] EKGon 09-22-2024 [facility] LEGIONELLA ANTIGEN, URINEon 09-22-2024 LEGIONELLA ANTIGEN, URINE LEGIONELLA ANTIGEN Negative for Legionella antigen COMMENT: Results may be affected if patient is on diuretics. INTERPRETATION OF RESULTS: Test detects Legionella pneumophilia serogroup 1 antigens in urine. Legionnaires disease cannot be ruled out since other serogroups and species may also cause disease. Normal [facility] Comment on above: Performed By: #### 4 [id number] #### LAB [address] [place], [place] [address] Maurice Coello M.D. [id number] Legionella Antigen, UrineOrd ered By: Malgorzata Carlton on 09-22-2024 Interpretation and review of laboratory results Normal [facility] L. pneumophila Ag Ql (U) Negative Negative for Legionella antigen [facility] Comment on above: COMMENT: Results may be affected if patient is on diuretics. INTERPRETATION OF RESULTS: Test detects Legionella pneumophilia serogroup 1 antigens in urine. Legionnaires disease cannot be ruled out since other serogroups and species may also cause disease. [facility] M. pneumoniae IgM Ql (S)Orde red By: Vane Garzon on 09-22-2024 Interpretation and review of laboratory results Normal [facility] M. pneumoniae IgM IA Qn (S) Non-Reactive for Mycoplasma pneumoniae IgM Non-Reactive for Mycoplasma pneumoniae IgM [facility] Interpretation Non-Reactive: Absence of IgM to Mycoplasma pneumoniae or levels below the limit of the assay. [facility] MAGNESIUM LEVELon 09-22-2024 Magnesium [Mass/Vol] 1.9 mg/dL Normal 1.6-2.4 [facility] Comment on above: Performed By: #### L [id number] #### [facility] LAB [address] [place], [place] [address] Maurice Coello M.D. [id number] MRSA DNA Amplified Probeon 1 11-22-2023 MRSA DNA CATRINA+probe Ql (Unsp spec) Negative Not Detected, MRSA NEGATIVE [facility] MRSA DNA CATRINA+probe Ql (Unsp spec)on 09-22-2024 Interpretation and review of laboratory results Normal [facility] Magnesiumon 09-22-2024 Magnesium [Mass/Vol] 1.9 mg/dL 1.6 - 2 .4 mg/dL [facility] Magnesium [Mass/Vol]on 09-22 Interpretation and review of laboratory results Normal [facility] No Panel Informationon 09-22 Interpretation and review of laboratory results Abnormal [facility] PHOSPHORUSon 09-22-2024 Phosphate [Mass/Vol] 4.3 mg/dL High 2.8-4.1 [facility] Comment on above: Performed By: #### 4 [id number] ####[facility] LAB [address] [place] [address] Maurice Coello M.D. [id number] Phosphoruson 09-22-2024 Phosphate [Mass/Vol] 4.3 mg/dL High 2.8 - 4 .1 mg/dL [facility] S. pneumoniae Urine Antigeno n 09-22-2024 Interpretation and review of laboratory results Normal [facility] S. pneumoniae Ag Ql (U) Negative Pres umptive Negative for Pneumococcal pneumoniae [facility] Comment on above: A negative result cristina ggests no current or recent pneumococcal infection. A negative result does not rule out Streptococcus pneumoniae infection since the antigen present in the sample may be below the detection limit of the test. [facility] S.PNEUMONIAE URINE ANTIGENon 09-22-2024 S.PNEUMONIAE URINE ANTIGEN STREP PNEUMONIAE ANTIGEN, URINE Presumptive Negative for Pneumococcal pneumoniae A negative result suggests no current or recent pneumococcal infection. A negative result does not rule out Streptococcus pneumoniae infection since the antigen present in the sample may be below the detection limit of the test. [facility] Comment on above: Performed By: #### 4 7222 ####[facility] LAB [address] [place] [address] Maurice Coello M.D. [id number] SPUTUM AEROBIC CULTUREon SPUTUM AEROBIC CULTURE RESPIRATORY CULTU RE See Gram Stain Result GRAM STAIN RESULT Specimen screened and found unsatisfactory for culture. [facility] Comment on above: Performed By: #### 4 4046 ####[facility] [address] [place] [address] Arnel Marie M.D. [id number] Sputum Aerobic CultureOrdere d By: Nahum Coello on 09-22-2024 Bacteria identified Aer cx Nom (Sput) See Gram Stain Result [facility] TROPONINon 09-22-2024 TROPONIN T DELTA CHANGE INTERPRETATION Probable non-acute cardiac injury or late presentation of acute injury. [facility] Comment on above: Performed By: #### L [id number] #### [facility] LAB [address] [place] [address] Maurice Coello M.D. [id number] TROPONIN T DELTA DIFFERENCE -5 ng/L Normal < = -/+ 7 change [facility] Comment on above: Performed By: #### L [id number] #### [facility] LAB [address] [place] [address] Maurice Coello M.D. [id number] TROPONIN T NG/L 15 ng/L Off scale high <=14 [facility] Comment on above: Performed By: #### L [id number] #### [facility] LAB [address] [place] [address] Maurice Coello M.D. [id number] TROPONIN T DELTA CHANGE INTERPRETATION Probable non-acute cardiac injury or late presentation of acute injury. Normal [facility] Comment on above: Performed By: #### 4 [id number] #### LAB [address] [place] [address] Maurice Coello M.D. [id number] TROPONIN T DELTA DIFFERENCE -5 ng/L Normal < = -/+ 7 change [facility] Comment on above: Performed By: #### 4 [id number] #### LAB [address] [place] [address] Maurice Coello M.D. [id number] TROPONIN T NG/L 15 ng/L Off scale high <=14 [facility] Comment on above: Performed By: #### 4 [id number] #### LAB [address] [place] [address] Maurice Coello M.D. [id number] Troponin x 2 (Now and Repeat in 3 hours)on 09-22-2024 Delta Difference Troponin T -5 ng/L < = -/+ 7 change [facility] Inter Troponin T Delta Change Probable non-acute cardiac injury or late presentation of acute injury. [facility] Interpretation and review of laboratory results Abnormal [facility] Troponin T 15 ng/L Critically high NINF - 14 ng/L [facility] Delta Difference Troponin T -5 ng/L < = -/+ 7 change [facility] Inter Troponin T Delta Change Probable non-acute cardiac injury or late presentation of acute injury. [facility] Interpretation and review of laboratory results Abnormal [facility] Troponin T 15 ng/L Critically high NINF - 14 ng/L [facility] BLOOD CULTURE AEROBIC/ANAERO BICon 09-21-2024 BLOOD CULTURE AEROBIC/ANAEROBIC BLOOD CULTURE No Growth after 5 days Normal [facility] Comment on above: Performed By: #### 4 [id number] ####[facility] LAB [address] [place] [address] Maurice Coello M.D. [id number] CBC Auto Differentialon 09-06 Basophils (Bld) [#/Vol] 0.07 10*3/uL [facility] Basophils/100 WBC (Bld) 0.7 % [facility] Eosinophils (Bld) [#/Vol] 0.14 10*3/uL [facility] Eosinophils/100 WBC (Bld) 1.5 % [facility] Erythrocyte distribution width (RBC) [Entitic vol] 14.4 % 11.6 - 14.8 % [facility] Hematocrit (Bld) [Volume fraction] 36.7 % 36.0 - 46.0 % [facility] Hemoglobin (Bld) [Mass/Vol] 10.8 g/dL Low 12.0 - 16.0 g/dL [facility] Immature granulocytes (Bld) [#/Vol] 0.03 10*3/uL [facility] Immature granulocytes/100 WBC (Bld) 0.3 % [facility] Comment on above: The IG parameter is the percentage of metamyelocytes, myelocytes and promyelocytes. An immature granulocyte count (IG) of 1% or more suggests the possibility of infection, an IG count of 3% is very likely related to an infection. Interpretation and review of laboratory results Abnormal [facility] Lymphocytes (Bld) [#/Vol] 1.21 10*3/uL [facility] Lymphocytes/100 WBC (Bld) 12.8 % [facility] MCH (RBC) [Entitic mass] 26.3 pg 26.0 - 34.0 pg [facility] MCHC (RBC) [Mass/Vol] 29.4 g/dL Low 31.0 - 37.0 g/dL [facility] MCV (RBC) [Entitic vol] 89.5 fL 80.0 - 100.0 fL [facility] Monocytes (Bld) [#/Vol] 0.62 10*3/uL [facility] Monocytes/100 WBC (Bld) 6.6 % [facility] Neutrophils (Bld) [#/Vol] 7.37 10*3/uL High [facility] Neutrophils/100 WBC (Bld) 78.1 % [facility] Nucleated RBC (Bld) [#/Vol] 0 10*3/uL [facility] Nucleated RBC/100 WBC (Bld) [Ratio] 0 % [facility] Platelet mean volume (Bld) [Entitic vol] 10 fL 9.4 - 12.4 fL [facility] Platelets (Bld) [#/Vol] 249 10*3/uL [facility] RBC (Bld) [#/Vol] 4.1 10*6/uL [facility] WBC (Bld) [#/Vol] 9.44 10*3/uL [facility] CBC WITH AUTO DIFFERENTIALon 09-21-2024 AUTO NRBC 0.0 % Normal [facility] Comment on above: Performed By: #### L [id number] #### LAB [address] [place] [address] Maurice Coello M.D. [id number] AUTO NRBC ABS COUNT 0.00 K/mcL Normal 0.00-0.00 [facility] Comment on above: Performed By: #### L [id number] #### LAB [address] [place] [address] Maurice Coello M.D. [id number] BASOPHILS ABSOLUTE COUNT 0.07 K/mcL Normal 0.00-0.30 [facility] Comment on above: Performed By: #### L [id number] #### LAB [address] [place] [address] Maurice Coello M.D. [id number] Basophils/100 WBC (Bld) 0.7 % Normal [facility] Comment on above: Performed By: #### L [id number] #### LAB [address] [place] [address] Maurice Coello M.D. [id number] Eosinophils (Bld) [#/Vol] 0.14 10*3/uL Normal 0.00-0.50 [facility] Comment on above: Performed By: #### L [id number] #### LAB [address] [place] [address] Maurice Coello M.D. [id number] Eosinophils/100 WBC (Bld) 1.5 % Normal [facility] Comment on above: Performed By: #### L [id number] #### LAB [address] [place] [address] Maurice Coello M.D. [id number] Erythrocyte distribution width (RBC) [Ratio] 14.4 % Normal 11.6-14.8 [facility] Comment on above: Performed By: #### L [id number] #### LAB [address] [place] [address] Maurice Coello M.D. [id number] Hematocrit (Bld) [Volume fraction] 36.7 % Normal 36.0-46.0 [facility] Comment on above: Performed By: #### L [id number] #### LAB [address] [place] [address] Maurice Coello M.D. [id number] Hemoglobin (Bld) [Mass/Vol] 10.8 g/dL Low 12.0-16.0 [facility] Comment on above: Performed By: #### L [id number] #### LAB [address] [place] [address] Maurice Coello M.D. [id number] IG ABSOLUTE 0.03 K/mcL Normal 0.00-0.30 [facility] Comment on above: Performed By: #### L [id number] #### LAB [address] [place] [address] Maurice Coello M.D. [id number] IG PERCENT 0.30 % Normal [facility] Comment on above: Result Comment: The IG parameter is the percentage of metamyelocytes, myelocytes and promyelocytes. An immature granulocyte count (IG) of 1% or more suggests the possibility of infection, an IG count of 3% is very likely related to an infection. Performed By: #### L [id number] #### LAB [address] [place] [address] Maurice Coello M.D. [id number] Lymphocytes (Bld) [#/Vol] 1.21 10*3/uL Normal 0.90-4.00 [facility] Comment on above: Performed By: #### L [id number] #### LAB [address] [place] [address] Maurice Coello M.D. [id number] Lymphocytes/100 WBC (Bld) 12.8 % Normal [facility] Comment on above: Performed By: #### L [id number] #### LAB [address] [place] [address] Maurice Coello M.D. [id number] MCH (RBC) [Entitic mass] 26.3 pg Normal 26.0-34.0 [facility] Comment on above: Performed By: #### L [id number] #### LAB [address] [place] [address] Maurice Coello M.D. [id number] MCV (RBC) [Entitic vol] 89.5 fL Normal 80.0-100.0 [facility] Comment on above: Performed By: #### L [id number] #### LAB [address] [place] [address] Maurice Coello M.D. [id number] MEAN CORPUSCULAR HEMOGLOBIN CONC 29.4 g/dL Low 31.0-37.0 [facility] Comment on above: Performed By: #### L [id number] #### LAB [address] [place] [address] Maurice Coello M.D. [id number] Monocytes (Bld) [#/Vol] 0.62 10*3/uL Normal 0.30-0.90 [facility] Comment on above: Performed By: #### L [id number] #### LAB [address] [place] [address] Maurice Coello M.D. [id number] Monocytes/100 WBC (Bld) 6.6 % Normal [facility] Comment on above: Performed By: #### L [id number] #### LAB [address] [place] [address] Maurice Coello M.D. [id number] NEUTROPHILS ABSOLUTE COUNT 7.37 K/mcL High 1.70-7.00 [facility] Comment on above: Performed By: #### L [id number] #### LAB [address] [place] [address] Maurice Coello M.D. [id number] Neutrophils/100 WBC (Bld) 78.1 % Normal [facility] Comment on above: Performed By: #### L [id number] #### LAB [address] [place] [address] Maurice Coello M.D. [id number] Platelet mean volume (Bld) [Entitic vol] 10.0 fL Normal 9.4-12.4 [facility] Comment on above: Performed By: #### L [id number] #### [facility] LAB [address] [place] [address] Maurice Coello M.D. [id number] Platelets (Bld) [#/Vol] 249 10*3/uL Normal 150-400 [facility] Comment on above: Performed By: #### L [id number] #### [facility] LAB [address] [place] [address] Maurice Coello M.D. [id number] RBC (Bld) [#/Vol] 4.10 10*6/uL Normal 4.00-5.20 [facility] Comment on above: Performed By: #### L [id number] #### [facility] LAB [address] [place] [address] Maurice Coello M.D. [id number] WBC (Bld) [#/Vol] 9.44 10*3/uL Normal 4.50-11.00 [facility] Comment on above: Performed By: #### L [id number] #### [facility] LAB [address] [place] [address] Maurice Coello M.D. [id number] CK [Catalytic activity/Vol]o n 09-21-2024 Interpretation and review of laboratory results Abnormal [facility] COMPREHENSIVE METABOLIC PANE Jett 09-21-2024 Albumin [Mass/Vol] 4.1 g/dL Normal 3.2-5.2 [facility] Comment on above: Order Comment: Injur y/Trauma or Illness?:Illness/Other How long have you had these symptoms (acute/chronic)?:Acute Reason for exam?:sob. Hx of COPD History of cancer?:unknown Surgeries, chemotherapy, or radiation?:cholecystectomy, hysterectomy, oophrectomy, left knee replacement Type of Exam?:Initial Additional signs and symptoms?:. Performed By: #### 4 6126 ####[facility] LAB [address] [place] [address] Maurice Coello M.D. [id number] ALP [Catalytic activity/Vol] 97 U/L Normal 40-150 [facility] Comment on above: Order Comment: Injur y/Trauma or Illness?:Illness/Other How long have you had these symptoms (acute/chronic)?:Acute Reason for exam?:sob. Hx of COPD History of cancer?:unknown Surgeries, chemotherapy, or radiation?:cholecystectomy, hysterectomy, oophrectomy, left knee replacement Type of Exam?:Initial Additional signs and symptoms?:. Performed By: #### 4 [id number] #### LAB [address] [place] [address] Maurice Coello M.D. [id number] ALT [Catalytic activity/Vol] 23 U/L Normal 0-35 U/L [facility] Comment on above: Order Comment: Injur y/Trauma or Illness?:Illness/Other How long have you had these symptoms (acute/chronic)?:Acute Reason for exam?:sob. Hx of COPD History of cancer?:unknown Surgeries, chemotherapy, or radiation?:cholecystectomy, hysterectomy, oophrectomy, left knee replacement Type of Exam?:Initial Additional signs and symptoms?:. Performed By: #### 4 6126 #### LAB [address] [place] [address] Maurice Coello M.D. [id number] Anion gap [Moles/Vol] 15 mmol/L Normal 10-[address] [facility] Comment on above: Order Comment: Injur y/Trauma or Illness?:Illness/Other How long have you had these symptoms (acute/chronic)?:Acute Reason for exam?:sob. Hx of COPD History of cancer?:unknown Surgeries, chemotherapy, or radiation?:cholecystectomy, hysterectomy, oophrectomy, left knee replacement Type of Exam?:Initial Additional signs and symptoms?:. Performed By: #### 4 6148 #### LAB [address] [place] [address] Maurice Coello M.D. [id number] AST [Catalytic activity/Vol] 47 U/L High 0-35 U/L [facility] Comment on above: Order Comment: Injur y/Trauma or Illness?:Illness/Other How long have you had these symptoms (acute/chronic)?:Acute Reason for exam?:sob. Hx of COPD History of cancer?:unknown Surgeries, chemotherapy, or radiation?:cholecystectomy, hysterectomy, oophrectomy, left knee replacement Type of Exam?:Initial Additional signs and symptoms?:. Result Comment: Sandro mccallumly Hemolyzed Performed By: #### 4 61 #### LAB [address] [place] [address] Maurice Coello M.D. [id number] Bilirubin [Mass/Vol] 0.2 mg/dL Normal 0.0-1.3 [facility] Comment on above: Order Comment: Injur y/Trauma or Illness?:Illness/Other How long have you had these symptoms (acute/chronic)?:Acute Reason for exam?:sob. Hx of COPD History of cancer?:unknown Surgeries, chemotherapy, or radiation?:cholecystectomy, hysterectomy, oophrectomy, left knee replacement Type of Exam?:Initial Additional signs and symptoms?:. Performed By: #### 4 6128 #### LAB [address] [place] [address] Maurice oCello M.D. [id number] Calcium [Mass/Vol] 8.8 mg/dL Normal 8.4-10.2 [facility] Comment on above: Order Comment: Injur y/Trauma or Illness?:Illness/Other How long have you had these symptoms (acute/chronic)?:Acute Reason for exam?:sob. Hx of COPD History of cancer?:unknown Surgeries, chemotherapy, or radiation?:cholecystectomy, hysterectomy, oophrectomy, left knee replacement Type of Exam?:Initial Additional signs and symptoms?:. Performed By: #### 4 6178 #### LAB [address] [place] [address] Maurice Coello M.D. [id number] Chloride [Moles/Vol] 94 mmol/L Low 98-108 [facility] Comment on above: Order Comment: Injur y/Trauma or Illness?:Illness/Other How long have you had these symptoms (acute/chronic)?:Acute Reason for exam?:sob. Hx of COPD History of cancer?:unknown Surgeries, chemotherapy, or radiation?:cholecystectomy, hysterectomy, oophrectomy, left knee replacement Type of Exam?:Initial Additional signs and symptoms?:. Performed By: #### 4 6154 #### LAB [address] [address] Maurice Coello M.D. [id number] Creatinine [Mass/Vol] 1.72 mg/dL High 0.60-1.[address] [facility] Comment on above: Order Comment: Injur y/Trauma or Illness?:Illness/Other How long have you had these symptoms (acute/chronic)?:Acute Reason for exam?:sob. Hx of COPD History of cancer?:unknown Surgeries, chemotherapy, or radiation?:cholecystectomy, hysterectomy, oophrectomy, left knee replacement Type of Exam?:Initial Additional signs and symptoms?:. Performed By: #### 4 6126 #### LAB [address] [address] Maurice Coello M.D. [id number] EGFR 32 mL/min/1.73 m2 Low >=60 [facility] Comment on above: Order Comment: Injur y/Trauma or Illness?:Illness/Other How long have you had these symptoms (acute/chronic)?:Acute Reason for exam?:sob. Hx of COPD History of cancer?:unknown Surgeries, chemotherapy, or radiation?:cholecystectomy, hysterectomy, oophrectomy, left knee replacement Type of Exam?:Initial Additional signs and symptoms?:. Result Comment: Ericka mated GFR was calculated using the 2020 CKD-EPI creatinine equation. Performed By: #### 4 6195 #### LAB [address] [address] Maurice Coello M.D. [id number] Glucose [Mass/Vol] 102 mg/dL High 65-99 [facility] Comment on above: Order Comment: Injur y/Trauma or Illness?:Illness/Other How long have you had these symptoms (acute/chronic)?:Acute Reason for exam?:sob. Hx of COPD History of cancer?:unknown Surgeries, chemotherapy, or radiation?:cholecystectomy, hysterectomy, oophrectomy, left knee replacement Type of Exam?:Initial Additional signs and symptoms?:. Performed By: #### 4 6165 #### LAB [address] [address] Maurice Coello M.D. [id number] HCO3 (Bld) [Moles/Vol] 30 mmol/L Normal 21-32 [facility] Comment on above: Order Comment: Injur y/Trauma or Illness?:Illness/Other How long have you had these symptoms (acute/chronic)?:Acute Reason for exam?:sob. Hx of COPD History of cancer?:unknown Surgeries, chemotherapy, or radiation?:cholecystectomy, hysterectomy, oophrectomy, left knee replacement Type of Exam?:Initial Additional signs and symptoms?:. Performed By: #### 4 6126 #### LAB [address] [address] Maurice Coello M.D. [id number] Potassium [Moles/Vol] 5.8 mmol/L High 3.5-5.[address] [facility] Comment on above: Order Comment: Injur y/Trauma or Illness?:Illness/Other How long have you had these symptoms (acute/chronic)?:Acute Reason for exam?:sob. Hx of COPD History of cancer?:unknown Surgeries, chemotherapy, or radiation?:cholecystectomy, hysterectomy, oophrectomy, left knee replacement Type of Exam?:Initial Additional signs and symptoms?:. Result Comment: Slig htly Hemolyzed Performed By: #### 4 9444 #### LAB [address] [address] Maurice Coello M.D. [id number] Protein [Mass/Vol] 7.3 g/dL Normal 6.0-8.0 [facility] Comment on above: Order Comment: Injur y/Trauma or Illness?:Illness/Other How long have you had these symptoms (acute/chronic)?:Acute Reason for exam?:sob. Hx of COPD History of cancer?:unknown Surgeries, chemotherapy, or radiation?:cholecystectomy, hysterectomy, oophrectomy, left knee replacement Type of Exam?:Initial Additional signs and symptoms?:. Performed By: #### 4 6165 #### LAB [address] [address] Maurice Coello M.D. [id number] Sodium [Moles/Vol] 133 mmol/L Low 135-145 [facility] Comment on above: Order Comment: Injur y/Trauma or Illness?:Illness/Other How long have you had these symptoms (acute/chronic)?:Acute Reason for exam?:sob. Hx of COPD History of cancer?:unknown Surgeries, chemotherapy, or radiation?:cholecystectomy, hysterectomy, oophrectomy, left knee replacement Type of Exam?:Initial Additional signs and symptoms?:. Performed By: #### 4 6143 #### LAB [address] [address] Maurice Coello M.D. [id number] Urea nitrogen [Mass/Vol] 32 mg/dL High 8-25 [facility] Comment on above: Order Comment: Injur y/Trauma or Illness?:Illness/Other How long have you had these symptoms (acute/chronic)?:Acute Reason for exam?:sob. Hx of COPD History of cancer?:unknown Surgeries, chemotherapy, or radiation?:cholecystectomy, hysterectomy, oophrectomy, left knee replacement Type of Exam?:Initial Additional signs and symptoms?:. Performed By: #### 4 6114 #### LAB [address] [address] Maurice Coello M.D. [id number] Urea nitrogen/Creatinine [Mass ratio] 18.6 mg/mg Normal 10.0-20.0 [facility] Comment on above: Order Comment: Injur y/Trauma or Illness?:Illness/Other How long have you had these symptoms (acute/chronic)?:Acute Reason for exam?:sob. Hx of COPD History of cancer?:unknown Surgeries, chemotherapy, or radiation?:cholecystectomy, hysterectomy, oophrectomy, left knee replacement Type of Exam?:Initial Additional signs and symptoms?:. Performed By: #### 4 4952 #### LAB [address] [address] Maurice Coello M.D. [id number] CPKon 09-21-2024 CPK 713 U/L High 40-170 [facility] Comment on above: Performed By: #### 4 6106 #### LAB [address] [address] Maurice Coello M.D. [id number] CPK NO MBon 09-21-2024 CK [Catalytic activity/Vol] 713 U/L High 40 - 170 U/L [facility] Comprehensive metabolic 2000 panelOrdered By: Michael Galvez on 09-21-2024 Albumin [Mass/Vol] 4.1 g/dL 3.2 - 5.2 g/dL [facility] ALP [Catalytic activity/Vol] 97 U/L 40 - 150 U/L [facility] ALT [Catalytic activity/Vol] 23 U/L 0-35 U/L [facility] Anion gap [Moles/Vol] 15 mmol/L 10 - 2 0 mmol/L [facility] AST [Catalytic activity/Vol] 47 U/L High 0-35 U/L [facility] Comment on above: Slightly Hemolyzed Bilirubin [Mass/Vol] 0.2 mg/dL 0.0 - 1 .3 mg/dL [facility] Calcium [Mass/Vol] 8.8 mg/dL 8.4 - 10. 2 mg/dL [facility] Chloride [Moles/Vol] 94 mmol/L Low 98 - 10 8 mmol/L [facility] Creatinine [Mass/Vol] 1.72 mg/dL High 0.60 - 1.10 mg/dL [facility] GFR/1.73 sq M.predicted CKD-EPI (S/P/Bld) [Vol rate/Area] 32 Low - PINF [facility] Comment on above: Estimated GFR was ca lculated using the 2020 CKD-EPI creatinine equation. Glucose [Mass/Vol] 102 mg/dL High 65 - 99 mg/dL [facility] HCO3 [Moles/Vol] 30 mmol/L 21 - 32 mmol/L [facility] Potassium [Moles/Vol] 5.8 mmol/L High 3.5 - 5.1 mmol/L [facility] Comment on above: Slightly Hemolyzed Protein [Mass/Vol] 7.3 g/dL 6.0 - 8.0 g/dL [facility] Sodium [Moles/Vol] 133 mmol/L Low 135 - 145 mmol/L [facility] Urea nitrogen [Mass/Vol] 32 mg/dL High 8 - 25 mg/dL [facility] Urea nitrogen/Creatinine [Mass ratio] 18.6 mg/mg 10.0 - 20.0 [facility] has implemented the eGFR calculation approach that does not have a coefficient for race that conforms to the NKF-ASN Task Force Recommendations. [facility] ED Prov Noteon 09-21-2024 ED Prov Note [facility] ED note NAME: Radha Shafer 64 y.o. CSN: [id number] PCP: No, Physician History: Chief Complaint: Shortness [...] ALTEMEIER PROCEDURE; Surgeon: Jada Vargas MD; [place] [facility] [place] Service: Colorectal CARDIAC CATHETERIZATION N/A 09/26/2022 Procedure: Coronary Angiogram; Surgeon: Tor Long MD; Location: [facility]; Service: Cardiovascular CARDIOVASCULAR STRESS TEST CHOLECYSTECTOMY COLONOSCOPY with biopsies COLONOSCOPY N/A 02/17/2022 Procedure: COLONOSCOPY; Surgeon: Jada Vargas MD; [place] [facility] [place]; Service: Colorectal EGD N/A 08/15/2022 Procedure: ESOPHAGOGASTRODUODENOSC OPY WITH BIOPSY; Surgeon: Tyshawn Santos MD; Location: [facility]; Service: Gastroenterology GALLBLADDER HC LEFT HEART CATH N/A 09/26/2022 Procedure: Left Heart Cath; Surgeon: Tor Long MD; Location: [facility]; Service: Cardiovascular HYSTERECTOMY JOINT REPLACEMENT Left knee ORTHOPEDIC SURGERY r wrist surgery, left ankle, right rotator cuff ROTATOR CUFF REPAIR Right SIGMOIDOSCOPY FLEXIBLE N/A 06/23/2022 Procedure: SIGMOIDOSCOPY FLEXIBLE WITH BIOPSY; Surgeon: Tyshawn Santos MD; Location: Endo; Service: Gastroenterology THYROIDECTOMY N/A 07/15/2015 Procedure: TOTAL THYROIDECTOMY; Surgeon: Lopez Alonso MD; Location: [facility]; Service: US ECHO TRANSTHORACIC FOLLOWUP [...] Socioeconomic History Marital status: Occupational History 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 Normal [facility] EKG 12-leadon 09-21-2024 Atrial Rate 75 BPM [facility] P Wiggins 74 degrees [facility] P-R Interval 152 ms [facility] Q-T Interval 362 ms [facility] QRS Duration 90 ms [facility] QTC Calculation (Bezet) 404 ms [facility] R Wiggins 34 degrees [facility] T Wiggins 65 degrees [facility] Ventricular Rate 75 BPM [facility] th Normal sinus rhythm Normal ECG ECG Cart Interpretation see physician note for interpretation. Confirmed by Rasheeda Bedolla ([id number]) on 09/21/2024 8:48:03 PM MUSE [facility] MRSA DNA AMPLIFIED PROBEon 1 11-21-2023 MRSA DNA AMPLIFIED PROBE Negative Normal Not Detected, MRSA NEGATIVE [facility] Comment on above: Performed By: #### 4 [id number] ####[facility] LAB [address] [address] Maurice Coello M.D. [id number] MYCOPLASMA PNEUMONIAE ANTIBO DY, IGMon 09-21-2024 MYCOPLASMA PNEUMONIAE IGM Non-Reactive for Mycoplasma pneumoniae IgM Normal Non-Reactive for Mycoplasma pneumoniae IgM [facility] Comment on above: Order Comment: Inter pretationNon-Reactive: Absence of IgM to Mycoplasma pneumoniae or levels below the limit of the assay. Performed By: #### 4 6184 ####[facility] [address] [place] [address] Arnel Marie M.D. [id number] No Panel Informationon 09-21 Extra Tube Hold for add-ons. [facility] Comment on above: Auto resulted. [facility] No Panel InformationOrdered By: Michael Galvez on 09-21-2024 Interpretation and review of laboratory results Abnormal [facility] POC VENOUS BLOOD GAS PANEL-P ULM - Lexa 09-21-2024 BASE EXCESS, VENOUS 5.2 High -2.0-2.0 [facility] Comment on above: Performed By: #### L [id number] #### LAB [address] [address] Maurice Coello M.D. [id number] 36 [facility] Comment on above: Performed By: #### L [id number] #### MH LAB [address] [address] Maurice Coello M.D. [id number] HCO3 (Bld) [Moles/Vol] 33.6 mmol/L High 24.0-28.0 [facility] Comment on above: Performed By: #### L [id number] #### [facility] LAB [address] [address] Maurice Coello M.D. [id number] Hematocrit (Bld) [Volume fraction] 38.6 % Normal 36.0-46.0 [facility] Comment on above: Performed By: #### L [id number] #### [facility] LAB [address] [address] Maurice Coello M.D. [id number] Hemoglobin (Bld) [Mass/Vol] 12.6 g/dL Normal 12.0-16.0 [facility] Comment on above: Performed By: #### L [id number] #### [facility] LAB [address] [address] Maurice Coello M.D. [id number] LITER FLOW 4 [facility] Comment on above: Performed By: #### L [id number] #### [facility] LAB [address] [address] Maurice Coello M.D. [id number] Oxygen saturation in Blood 94.8 % High 40.0-70.0 [facility] Comment on above: Performed By: #### L [id number] #### [facility] LAB [address] [address] Maurice Coello M.D. [id number] PCO2 VENOUS 67.4 mm Hg High 41.0-51.0 [facility] Comment on above: Performed By: #### L [id number] #### [facility] LAB [address] [address] Maurice Coello M.D. [id number] PH VENOUS 7.31 Low 7.32-7.42 [facility] Comment on above: Performed By: #### L [id number] #### [facility] LAB [address] [place], [place] [address] Maurice Coello M.D. [id number] PO2 VENOUS 76 mm Hg High 25-40 [facility] Comment on above: Performed By: #### L [id number] #### [facility] LAB [address] [address] Maurice Coello M.D. [id number] SPECIMEN SOURCE RADIANCE Radial, right Normal [facility] Comment on above: Performed By: #### L [id number] #### MH LAB [address] [id number] Maurice Coello M.D. [id number] POC Venous Blood Gas Panel-P [facility] 09-21-2024 Base excess Calc (BldV) [Moles/Vol] 5.2 mmol/L High -2.0 - 2.0 [facility] CO2 (BldV) [Partial pressure] 67.4 mm[Hg] High [facility] Hematocrit (BldA) [Volume fraction] 38.6 % 36.0 - 46.0 % [facility] Inhaled oxygen concentration 36 % [facility] Inhaled oxygen flow rate 4 L/min [facility] Interpretation and review of laboratory results Abnormal [facility] Oxygen (BldV) [Partial pressure] 76 mm[Hg] High [facility] Oxygen saturation in Venous blood 94.8 % High 40.0 - 70.0 % [facility] pH (BldV) 7.31 [pH] Low 7.32 - 7.42 [facility] Specimen source Nom (Unsp spec) Radial, right [facility] PROCALCITONINon 09-21-2024 PROCALCITONIN 0.14 ng/ml Normal <0.50 [facility] Comment on above: Order Comment: Injur y/Trauma or Illness?:Illness/Other How long have you had these symptoms (acute/chronic)?:Acute Reason for exam?:sob. Hx of COPD History of cancer?:unknown Surgeries, chemotherapy, or radiation?:cholecystectomy, hysterectomy, oophrectomy, left knee replacement Type of Exam?:Initial Additional signs and symptoms?:. Performed By: #### 4 7652 ####[facility] LAB [address] [address] Maurice Coello M.D. [id number] Procalcitoninon 09-21-2024 Procalcitonin [Mass/Vol] 0.14 ng/mL NINF - 0.50 ng/ml [facility] Procalcitonin [Mass/Vol]on 11-21-2023 Interpretation and review of laboratory results Normal [facility] Results <0.50 ng/ml represent a low risk of severe sepsis and/or septic shock. [facility] TROPONINon 09-21-2024 BASELINE TROPONIN T NG/L 20 ng/L Off scale high <=14 [facility] Comment on above: Performed By: #### 4 6608 ####[facility] LAB [address] [place], [place] [address] Maurice Coello M.D. [id number] TROPONIN T INTERPRETATION Possible acute cardiac injury. Normal [facility] Comment on above: Performed By: #### 4 6608 ####[facility] LAB [address] [place], [place] [address] Maurice Coello M.D. [id number] TroponinOrdered By: Carole hughes on 09-21-2024 Troponin T 20 ng/L Critically high NINF - 14 ng/L [facility] Troponin T Interpretation Possible acute cardiac injury. [facility] XR CHEST PA/APon 09-21-2024 XR CHEST PA/AP [...] 21, 2024 10:47:11 PM EST Transcribed by: APCO DOWNS on Sat Sep 21, 2024 10:47:11 PM EST Finalized by: PACO DOWNS on Sat Sep 21, 2024 10:47:11 PM EST Normal [facility] Comment on above: Order Comment: Injur y/Trauma or Illness?:Illness/Other How long have you had these symptoms (acute/chronic)?:Acute Reason for exam?:sob. Hx of COPD History of cancer?:unknown Surgeries, chemotherapy, or radiation?:cholecystectomy, hysterectomy, oophrectomy, left knee replacement Type of Exam?:Initial Additional signs and symptoms?:. XR Chest PA and Abdomen APon 09-21-2024 No acute cardiopulmonary process. Stable chest x-ray. Workstation ID: [id number] [employer] EXAMINATION: XR CHEST PA/AP HISTORY: ORDERING SYSTEM [...] unremarkable. Multiple calcified granulomas are again seen. RIS Paco Downs MD - 09/21/2024 EXAMINATION: XR CHEST PA/AP [...] process. Stable chest x-ray. Workstation ID: [id number] [facility] Radiology Study observation (narrative) XR Chest PA and Abdomen APOr dered By: Paco Downs on 09-21-2024 [facility] Work Phone: BASIC METABOLIC PANELon 08-07 Anion gap [Moles/Vol] 15 mmol/L Normal 10-[address] [facility] Comment on above: Order Comment: Resul [...] select bacterial infections. Performed By: #### L [id number] #### [facility] LAB [address] [address] Maurice Coello M.D. [id number] Calcium [Mass/Vol] 9.1 mg/dL Normal 8.4-10.2 [facility] Comment on above: Order Comment: [...] select bacterial infections. Performed By: #### L [id number] #### [facility] LAB [address] [address] Maurice Coello M.D. [id number] Chloride [Moles/Vol] 98 mmol/L Normal 98-108 [facility] Comment on above: Order Comment: [...] select bacterial infections. Performed By: #### L [id number] #### [facility] LAB [address] [place], [place] [address] Maurice Coello M.D. [id number] Creatinine [Mass/Vol] 1.61 mg/dL High 0.60-1.[address] [facility] Comment on above: Order Comment: Resul [...] select bacterial infections. Performed By: #### L [id number] #### [facility] LAB [address] [place], [place] [address] Maurice Coello M.D. [id number] EGFR 35 mL/min/1.73 m2 Low >=60 [facility] Comment on above: Order Comment: Resul [...] CKD-EPI creatinine equation. Performed By: #### L [id number] #### [facility] LAB [address] [place], [place] [address] Maurice Coello M.D. [id number] Glucose [Mass/Vol] 120 mg/dL High 65-99 [facility] Comment on above: Order Comment: [...] select bacterial infections. Performed By: #### L [id number] #### MH LAB [address] [place], [place] [address] Maurice Coello M.D. [id number] HCO3 (Bld) [Moles/Vol] 25 mmol/L Normal 21-32 [facility] Comment on above: Order Comment: [...] select bacterial infections. Performed By: #### L [id number] #### [facility] LAB [address] [address] Maurice Coello M.D. [id number] Potassium [Moles/Vol] 5.7 mmol/L High 3.5-5.[address] [facility] Comment on above: Order Comment: Resul [...] select bacterial infections. Performed By: #### L [id number] #### [facility] LAB [address] [place], [place] [address] Maurice Coello M.D. [id number] Sodium [Moles/Vol] 132 mmol/L Low 135-145 [facility] Comment on above: Order Comment: [...] select bacterial infections. Performed By: #### L [id number] #### [facility] LAB [address] [address] Maurice Coello M.D. [id number] Urea nitrogen [Mass/Vol] 35 mg/dL High 8-25 [facility] Comment on above: Order Comment: Resul [...] select bacterial infections. Performed By: #### L [id number] #### LAB [address] [place], [place] [address] Maurice Coello M.D. [id number] Urea nitrogen/Creatinine [Mass ratio] 21.7 mg/mg High 10.0-20.0 [facility] Comment on above: Order Comment: Resul [...] select bacterial infections. Performed By: #### L [id number] #### LAB [address] [place], [place] [address] Maurice Coello M.D. [id number] Basic metabolic 2000 panelon 09-03-2024 Anion gap [Moles/Vol] 15 mmol/L 10 - 2 0 mmol/L [facility] Calcium [Mass/Vol] 9.1 mg/dL 8.4 - 10. 2 mg/dL [facility] Chloride [Moles/Vol] 98 mmol/L 98 - 10 8 mmol/L [facility] Creatinine [Mass/Vol] 1.61 mg/dL High 0.60 - 1.10 mg/dL [facility] GFR/1.73 sq M.predicted CKD-EPI (S/P/Bld) [Vol rate/Area] 35 Low - PINF [facility] Comment on above: Estimated GFR was ca lculated using the 2020 CKD-EPI creatinine equation. Glucose [Mass/Vol] 120 mg/dL High 65 - 99 mg/dL [facility] HCO3 [Moles/Vol] 25 mmol/L 21 - 32 mmol/L [facility] Interpretation and review of laboratory results Abnormal [facility] Potassium [Moles/Vol] 5.7 mmol/L High 3.5 - 5.1 mmol/L [facility] Sodium [Moles/Vol] 132 mmol/L Low 135 - 145 mmol/L [facility] Urea nitrogen [Mass/Vol] 35 mg/dL High 8 - 25 mg/dL [facility] Urea nitrogen/Creatinine [Mass ratio] 21.7 mg/mg High 10.0 - 20.0 [facility] has implemented the eGFR calculation approach that does not have a coefficient for race that conforms to the NKF-ASN Task Force Recommendations. [facility] CBC Auto Differentialon 08-07 Basophils (Bld) [#/Vol] 0.02 10*3/uL [facility] Basophils/100 WBC (Bld) 0.2 % [facility] Eosinophils (Bld) [#/Vol] 0 10*3/uL [facility] Eosinophils/100 WBC (Bld) 0 % [facility] Erythrocyte distribution width (RBC) [Entitic vol] 14.4 % 11.6 - 14.8 % [facility] Hematocrit (Bld) [Volume fraction] 35.3 % Low 36.0 - 46.0 % [facility] Hemoglobin (Bld) [Mass/Vol] 10.6 g/dL Low 12.0 - 16.0 g/dL [facility] Immature granulocytes (Bld) [#/Vol] 0.06 10*3/uL [facility] Immature granulocytes/100 WBC (Bld) 0.7 % [facility] Comment on above: The IG parameter is the percentage of metamyelocytes, myelocytes and promyelocytes. An immature granulocyte count (IG) of 1% or more suggests the possibility of infection, an IG count of 3% is very likely related to an infection. Interpretation and review of laboratory results Abnormal [facility] Lymphocytes (Bld) [#/Vol] 0.6 10*3/uL Low [facility] Lymphocytes/100 WBC (Bld) 7.4 % [facility] MCH (RBC) [Entitic mass] 25.9 pg Low 26.0 - 34.0 pg [facility] MCHC (RBC) [Mass/Vol] 30 g/dL Low 31.0 - 37.0 g/dL [facility] MCV (RBC) [Entitic vol] 86.1 fL 80.0 - 100.0 fL [facility] Monocytes (Bld) [#/Vol] 0.22 10*3/uL Low [facility] Monocytes/100 WBC (Bld) 2.7 % [facility] Neutrophils (Bld) [#/Vol] 7.26 10*3/uL High [facility] Neutrophils/100 WBC (Bld) 89 % [facility] Nucleated RBC (Bld) [#/Vol] 0 10*3/uL [facility] Nucleated RBC/100 WBC (Bld) [Ratio] 0 % [facility] Platelet mean volume (Bld) [Entitic vol] 10.5 fL 9.4 - 12.4 fL [facility] Platelets (Bld) [#/Vol] 229 10*3/uL [facility] RBC (Bld) [#/Vol] 4.1 10*6/uL [facility] alth WBC (Bld) [#/Vol] 8.16 10*3/uL [facility] WITH AUTO DIFFERENTIALon 09-03-2024 AUTO NRBC 0.0 % Normal [facility] Comment on above: Performed By: #### L [id number] #### LAB [address] [place] [address] Maurice Coello M.D. [id number] AUTO NRBC ABS COUNT 0.00 K/mcL Normal 0.00-0.00 [facility] Comment on above: Performed By: #### L [id number] #### LAB [address] [address] Maurice Coello M.D. [id number] BASOPHILS ABSOLUTE COUNT 0.02 K/mcL Normal 0.00-0.30 [facility] Comment on above: Performed By: #### L [id number] #### LAB [address] [address] Maurice Coello M.D. [id number] Basophils/100 WBC (Bld) 0.2 % Normal [facility] Comment on above: Performed By: #### L [id number] #### LAB [address] [address] Maurice Coello M.D. [id number] Eosinophils (Bld) [#/Vol] 0.00 10*3/uL Normal 0.00-0.50 [facility] Comment on above: Performed By: #### L [id number] #### LAB [address] [address] Maurice Coello M.D. [id number] Eosinophils/100 WBC (Bld) 0.0 % Normal [facility] Comment on above: Performed By: #### L [id number] #### LAB [address] [address] Maurice Coello M.D. [id number] Erythrocyte distribution width (RBC) [Ratio] 14.4 % Normal 11.6-14.8 [facility] Comment on above: Performed By: #### L [id number] #### LAB [address] [address] Maurice Coello M.D. [id number] Hematocrit (Bld) [Volume fraction] 35.3 % Low 36.0-46.0 [facility] Comment on above: Performed By: #### L [id number] #### LAB [address] [place] [address] Maurice Coello M.D. [id number] Hemoglobin (Bld) [Mass/Vol] 10.6 g/dL Low 12.0-16.0 [facility] Comment on above: Performed By: #### L [id number] #### LAB [address] [place] [address] Maurice Coello M.D. [id number] IG ABSOLUTE 0.06 K/mcL Normal 0.00-0.30 [facility] Comment on above: Performed By: #### L [id number] #### LAB [address] [place] [address] Maurice Coello M.D. [id number] IG PERCENT 0.70 % Normal [facility] Comment on above: Result Comment: The IG parameter is the percentage of metamyelocytes, myelocytes and promyelocytes. An immature granulocyte count (IG) of 1% or more suggests the possibility of infection, an IG count of 3% is very likely related to an infection. Performed By: #### L [id number] #### LAB [address] [place] [address] Maurice Coello M.D. [id number] Lymphocytes (Bld) [#/Vol] 0.60 10*3/uL Low 0.90-4.00 [facility] Comment on above: Performed By: #### L [id number] #### LAB [address] [place] [address] Maurice Coello M.D. [id number] Lymphocytes/100 WBC (Bld) 7.4 % Normal [facility] Comment on above: Performed By: #### L [id number] #### LAB [address] [place] [address] Maurice Coello M.D. [id number] MCH (RBC) [Entitic mass] 25.9 pg Low 26.0-34.0 [facility] Comment on above: Performed By: #### L [id number] #### LAB [address] [place] [address] Maurice Coello M.D. [id number] MCV (RBC) [Entitic vol] 86.1 fL Normal 80.0-100.0 [facility] Comment on above: Performed By: #### L [id number] #### LAB [address] [place] [address] Maurice Coello M.D. [id number] MEAN CORPUSCULAR HEMOGLOBIN CONC 30.0 g/dL Low 31.0-37.0 [facility] Comment on above: Performed By: #### L [id number] #### LAB [address] [place] [address] Maurice Coello M.D. [id number] Monocytes (Bld) [#/Vol] 0.22 10*3/uL Low 0.30-0.90 [facility] Comment on above: Performed By: #### L [id number] #### LAB [address] [place] [address] Maurice Coello M.D. [id number] Monocytes/100 WBC (Bld) 2.7 % Normal [facility] Comment on above: Performed By: #### L [id number] #### LAB [address] [place] [address] Maurice Coello M.D. [id number] NEUTROPHILS ABSOLUTE COUNT 7.26 K/mcL High 1.70-7.00 [facility] Comment on above: Performed By: #### L [id number] ####[facility] LAB [address] [place] [address] Maurice Coello M.D. [id number] Neutrophils/100 WBC (Bld) 89.0 % Normal [facility] Comment on above: Performed By: #### L [id number] ####[facility] LAB [address] [place] [address] Maurice Coello M.D. [id number] Platelet mean volume (Bld) [Entitic vol] 10.5 fL Normal 9.4-12.4 [facility] Comment on above: Performed By: #### L [id number] #### LAB [address] [place] [address] Maurice Coello M.D. [id number] Platelets (Bld) [#/Vol] 229 10*3/uL Normal 150-400 [facility] Comment on above: Performed By: #### L [id number] ####[facility] LAB [address] [place] [address] Maurice Coello M.D. [id number] RBC (Bld) [#/Vol] 4.10 10*6/uL Normal 4.00-5.20 [facility] Comment on above: Performed By: #### L [id number] ####[facility] LAB [address] [place] [address] Maurice Coello M.D. [id number] WBC (Bld) [#/Vol] 8.16 10*3/uL Normal 4.50-11.00 [facility] Comment on above: Performed By: #### L [id number] ####[facility] LAB [address] [place] [address] Maurice Coello M.D. [id number] EKG 12-leadon 09-03-2024 Atrial Rate 75 BPM [facility] P Wiggins 60 degrees [facility] P-R Interval 166 ms [facility] Q-T Interval 378 ms [facility] QRS Duration 104 ms [facility] QTC Calculation (Bezet) 422 ms [facility] R Wiggins 28 degrees [facility] T Wiggins 46 degrees [facility] Ventricular Rate 75 BPM [facility] th Normal sinus rhythm Normal ECG ECG Cart Interpretation see physician note for interpretation. Confirmed by Rasheeda Bedolla ([id number]) on 09/03/2024 3:10:10 PM MUSE [facility] BASIC METABOLIC PANELon 10-2 Anion gap [Moles/Vol] 17 mmol/L Normal 10-[address] [facility] Comment on above: Order Comment: Resul [...] select bacterial infections. Performed By: #### L [id number] #### [facility] LAB [address] [place] [address] Maurice Coello M.D. [id number] Calcium [Mass/Vol] 9.1 mg/dL Normal 8.4-10.2 [facility] Comment on above: Order Comment: [...] select bacterial infections. Performed By: #### L [id number] #### [facility] LAB [address] [place], [place] [address] Maurice Coello M.D. [id number] Chloride [Moles/Vol] 99 mmol/L Normal 98-108 [facility] Comment on above: Order Comment: [...] select bacterial infections. Performed By: #### L [id number] #### [facility] LAB [address] [place], [place] [address] Maurice Coello M.D. [id number] Creatinine [Mass/Vol] 2.09 mg/dL High 0.60-1.[address] [facility] Comment on above: Order Comment: Resul [...] select bacterial infections. Performed By: #### L [id number] #### [facility] LAB [address] [place], [place] [address] Maurice Coello M.D. [id number] EGFR 26 mL/min/1.73 m2 Low >=60 [facility] Comment on above: Order Comment: Resul [...] CKD-EPI creatinine equation. Performed By: #### L [id number] #### [facility] LAB [address] [place], [place] [address] Maurice Coello M.D. [id number] Glucose [Mass/Vol] 112 mg/dL High 65-99 [facility] Comment on above: Order Comment: [...] select bacterial infections. Performed By: #### L [id number] #### [facility] LAB [address] [place], [place] [address] Maurice Coello M.D. [id number] HCO3 (Bld) [Moles/Vol] 27 mmol/L Normal 21-32 [facility] Comment on above: Order Comment: [...] select bacterial infections. Performed By: #### L [id number] #### [facility] LAB [address] [place] [address] Maurice Coello M.D. [id number] Potassium [Moles/Vol] 5.2 mmol/L High 3.5-5.[address] [facility] Comment on above: Order Comment: Resul [...] select bacterial infections. Performed By: #### L [id number] #### [facility] LAB [address] [place], [place] [address] Maurice Coello M.D. [id number] Sodium [Moles/Vol] 138 mmol/L Normal 135-145 [facility] Comment on above: Order Comment: [...] select bacterial infections. Performed By: #### L [id number] #### [facility] LAB [address] [place] [address] Maurice Coello M.D. [id number] Urea nitrogen [Mass/Vol] 37 mg/dL High 8-25 [facility] Comment on above: Order Comment: Resul [...] select bacterial infections. Performed By: #### L [id number] #### [facility] LAB [address] [place] [address] Maurice Coello M.D. [id number] Urea nitrogen/Creatinine [Mass ratio] 17.7 mg/mg Normal 10.0-20.0 [facility] Comment on above: Order Comment: Resul [...] select bacterial infections. Performed By: #### L [id number] #### [facility] LAB [address] [place] [address] Maurice Coello M.D. [id number] BLOOD CULTURE AEROBIC/ANAERO BICon 09-02-2024 BLOOD CULTURE AEROBIC/ANAEROBIC BLOOD CULTURE No Growth after 5 days Normal [facility] Comment on above: Performed By: #### 4 [id number] #### [facility] LAB [address] [place] [address] Maurice Coello M.D. [id number] Performed By: #### 4 [id number] ####[facility] LAB [address] [place], [place] [address] Maurice Coello M.D. [id number] Basic metabolic 2000 panelon 09-02-2024 Anion gap [Moles/Vol] 17 mmol/L 10 - 2 0 mmol/L [facility] Calcium [Mass/Vol] 9.1 mg/dL 8.4 - 10. 2 mg/dL [facility] Chloride [Moles/Vol] 99 mmol/L 98 - 10 8 mmol/L [facility] Creatinine [Mass/Vol] 2.09 mg/dL High 0.60 - 1.10 mg/dL [facility] GFR/1.73 sq M.predicted CKD-EPI (S/P/Bld) [Vol rate/Area] 26 Low - PINF [facility] Comment on above: Estimated GFR was ca lculated using the 2020 CKD-EPI creatinine equation. Glucose [Mass/Vol] 112 mg/dL High 65 - 99 mg/dL [facility] HCO3 [Moles/Vol] 27 mmol/L 21 - 32 mmol/L [facility] Interpretation and review of laboratory results Abnormal [facility] Potassium [Moles/Vol] 5.2 mmol/L High 3.5 - 5.1 mmol/L [facility] Sodium [Moles/Vol] 138 mmol/L 135 - 145 mmol/L [facility] Urea nitrogen [Mass/Vol] 37 mg/dL High 8 - 25 mg/dL [facility] Urea nitrogen/Creatinine [Mass ratio] 17.7 mg/mg 10.0 - 20.0 [facility] has implemented the eGFR calculation approach that does not have a coefficient for race that conforms to the NKF-ASN Task Force Recommendations. [facility] CBC Auto Differentialon 08-07 Basophils (Bld) [#/Vol] 0.07 10*3/uL [facility] Basophils/100 WBC (Bld) 1 % [facility] Eosinophils (Bld) [#/Vol] 0.12 10*3/uL [facility] Eosinophils/100 WBC (Bld) 1.7 % [facility] Erythrocyte distribution width (RBC) [Entitic vol] 14.5 % 11.6 - 14.8 % [facility] Hematocrit (Bld) [Volume fraction] 40.6 % 36.0 - 46.0 % [facility] Hemoglobin (Bld) [Mass/Vol] 11.9 g/dL Low 12.0 - 16.0 g/dL [facility] Immature granulocytes (Bld) [#/Vol] 0.01 10*3/uL [facility] Immature granulocytes/100 WBC (Bld) 0.1 % [facility] Comment on above: The IG parameter is the percentage of metamyelocytes, myelocytes and promyelocytes. An immature granulocyte count (IG) of 1% or more suggests the possibility of infection, an IG count of 3% is very likely related to an infection. Interpretation and review of laboratory results Abnormal [facility] Lymphocytes (Bld) [#/Vol] 0.98 10*3/uL [facility] Lymphocytes/100 WBC (Bld) 14 % [facility] MCH (RBC) [Entitic mass] 25.8 pg Low 26.0 - 34.0 pg [facility] MCHC (RBC) [Mass/Vol] 29.3 g/dL Low 31.0 - 37.0 g/dL [facility] MCV (RBC) [Entitic vol] 88.1 fL 80.0 - 100.0 fL [facility] Monocytes (Bld) [#/Vol] 0.41 10*3/uL [facility] Monocytes/100 WBC (Bld) 5.8 [facility] Neutrophils (Bld) [#/Vol] 5.43 10*3/uL [facility] Neutrophils/100 WBC (Bld) 77.4 % [facility] Nucleated RBC (Bld) [#/Vol] 0 10*3/uL [facility] Nucleated RBC/100 WBC (Bld) [Ratio] 0 % [facility] Platelet mean volume (Bld) [Entitic vol] 10.6 fL 9.4 - 12.4 fL [facility] Platelets (Bld) [#/Vol] 298 10*3/uL [facility] RBC (Bld) [#/Vol] 4.61 10*6/uL [facility] WBC (Bld) [#/Vol] 7.02 10*3/uL [facility] CBC WITH AUTO DIFFERENTIALon 09-02-2024 AUTO NRBC 0.0 % Normal [facility] Comment on above: Performed By: #### L [id number] ####[facility] LAB [address] [place], [place] [address] Maurice Coello M.D. [id number] AUTO NRBC ABS COUNT 0.00 K/mcL Normal 0.00-0.00 [facility] Comment on above: Performed By: #### L [id number] #### LAB [address] [place] [address] Maurice Coello M.D. [id number] BASOPHILS ABSOLUTE COUNT 0.07 K/mcL Normal 0.00-0.30 [facility] Comment on above: Performed By: #### L [id number] #### LAB [address] [place] [address] Maurice Coello M.D. [id number] Basophils/100 WBC (Bld) 1.0 % Normal [facility] Comment on above: Performed By: #### L [id number] #### LAB [address] [place] [address] Maurice Coello M.D. [id number] Eosinophils (Bld) [#/Vol] 0.12 10*3/uL Normal 0.00-0.50 [facility] Comment on above: Performed By: #### L [id number] #### LAB [address] [place] [address] Maurice Coello M.D. [id number] Eosinophils/100 WBC (Bld) 1.7 % Normal [facility] Comment on above: Performed By: #### L [id number] #### LAB [address] [place] [address] Maurice Coello M.D. [id number] Erythrocyte distribution width (RBC) [Ratio] 14.5 % Normal 11.6-14.8 [facility] Comment on above: Performed By: #### L [id number] #### LAB [address] [place] [address] Maurice Coello M.D. [id number] Hematocrit (Bld) [Volume fraction] 40.6 % Normal 36.0-46.0 [facility] Comment on above: Performed By: #### L [id number] #### LAB [address] [place] [address] Maurice Coello M.D. [id number] Hemoglobin (Bld) [Mass/Vol] 11.9 g/dL Low 12.0-16.0 [facility] Comment on above: Performed By: #### L [id number] #### LAB [address] [place] [address] Maurice Coello M.D. [id number] IG ABSOLUTE 0.01 K/mcL Normal 0.00-0.30 [facility] Comment on above: Performed By: #### L [id number] #### LAB [address] [place] [address] Maurice Coello M.D. [id number] IG PERCENT 0.10 % Normal [facility] Comment on above: Result Comment: The IG parameter is the percentage of metamyelocytes, myelocytes and promyelocytes. An immature granulocyte count (IG) of 1% or more suggests the possibility of infection, an IG count of 3% is very likely related to an infection. Performed By: #### L [id number] #### LAB [address] [place] [address] Maurice Coello M.D. [id number] Lymphocytes (Bld) [#/Vol] 0.98 10*3/uL Normal 0.90-4.00 [facility] Comment on above: Performed By: #### L [id number] #### LAB [address] [place] [address] Maurice Coello M.D. [id number] Lymphocytes/100 WBC (Bld) 14.0 % [facility] Comment on above: Performed By: #### L [id number] #### LAB [address] [place] [address] Maurice Coello M.D. [id number] MCH (RBC) [Entitic mass] 25.8 pg Low 26.0-34.0 [facility] Comment on above: Performed By: #### L [id number] #### LAB [address] [place] [address] Maurice Coello M.D. [id number] MCV (RBC) [Entitic vol] 88.1 fL Normal 80.0-100.0 [facility] Comment on above: Performed By: #### L [id number] #### LAB [address] [place] [address] Maurice Coello M.D. [id number] MEAN CORPUSCULAR HEMOGLOBIN CONC 29.3 g/dL Low 31.0-37.0 [facility] Comment on above: Performed By: #### L [id number] #### LAB [address] [place] [address] Maurice Coello M.D. [id number] Monocytes (Bld) [#/Vol] 0.41 10*3/uL Normal 0.30-0.90 [facility] Comment on above: Performed By: #### L [id number] #### LAB [address] [place] [address] Maurice Coello M.D. [id number] Monocytes/100 WBC (Bld) 5.8 % Normal [facility] Comment on above: Performed By: #### L [id number] #### LAB [address] [place] [address] Maurice Coello M.D. [id number] NEUTROPHILS ABSOLUTE COUNT 5.43 K/mcL Normal 1.70-7.00 [facility] Comment on above: Performed By: #### L [id number] #### LAB [address] [place] [address] Maurice Coello M.D. [id number] Neutrophils/100 WBC (Bld) 77.4 % Normal [facility] Comment on above: Performed By: #### L [id number] #### LAB [address] [place] [address] Maurice Coello M.D. [id number] Platelet mean volume (Bld) [Entitic vol] 10.6 fL Normal 9.4-12.4 [facility] Comment on above: Performed By: #### L [id number] #### LAB [address] [place] [address] Maurice Coello M.D. [id number] Platelets (Bld) [#/Vol] 298 10*3/uL Normal 150-400 [facility] Comment on above: Performed By: #### L [id number] ####[facility] LAB [address] [place] [address] Maurice Coello M.D. [id number] RBC (Bld) [#/Vol] 4.61 10*6/uL Normal 4.00-5.20 [facility] Comment on above: Performed By: #### L [id number] ####[facility] LAB [address] [place] [address] Maurice Coello M.D. [id number] WBC (Bld) [#/Vol] 7.02 10*3/uL Normal 4.50-11.00 [facility] Comment on above: Performed By: #### L [id number] ####[facility] LAB [address] [place] [address] Maurice Coello M.D. [id number] CK [Catalytic activity/Vol]o n 09-02-2024 Interpretation and review of laboratory results Abnormal [facility] COVID-19/INFLUENZA A,B MOLEC ULARon 09-02-2024 SARS-CoV-2 (COVID-19) Ab IA Ql SARS-COV-2 (SOFIE) Not Detected INFLUENZA A (SOFIE) Not Detected INFLUENZA B (SOFIE) Not Detected Normal Not Detected [facility] Comment on above: Performed By: #### L [id number] #### LAB [address] [place] [address] Maurice Coello M.D. [id number] CPKon 09-02-2024 CPK 659 U/L High 40-170 [facility] Comment on above: Performed By: #### 4 [id number] ####[facility] LAB [address] [place] [address] Maurice Coello M.D. [id number] CPK NO MBon 09-02-2024 CK [Catalytic activity/Vol] 659 U/L High 40 - 170 U/L [facility] ED Prov Noteon 09-02-2024 ED Prov Note ED PROVIDER NOTE [facility] INTERMEDIATE NAME: Radha Benitez Hollis AGE: 64 y.o. : 1960 VISIT DATE: 09/02/2024 CSN: [id number] PCP: Erin, Physician Chief Complaint Patient presents with Shortness [...] Patient also [facility] [...] ALTEMEIER PROCEDURE; Surgeon: Jada Vargas MD; [place] [facility] [place]; Service: Colorectal CARDIAC CATHETERIZATION N/A 09/26/2022 Procedure: Coronary Angiogram; Surgeon: Tor Long MD; Location: [facility] BIOLOGY INSTRUCTOR; Service: Cardiovascular CARDIOVASCULAR STRESS TEST CHOLECYSTECTOMY COLONOSCOPY with biopsies COLONOSCOPY N/A 02/17/2022 Procedure: COLONOSCOPY; Surgeon: Jada Vargas MD; [place] [facility] [place]; Service: Colorectal EGD N/A 08/15/2022 Procedure: ESOPHAGOGASTRODUODENOSC OPY WITH BIOPSY; Surgeon: Tyshawn Santos MD; Location: Endo; Service: Gastroenterology GALLBLADDER HC LEFT HEART CATH N/A 09/26/2022 Procedure: Left Heart Cath; Surgeon: Tor Long MD; Location: [facility]BRID BIOLOGY INSTRUCTOR; Service: Cardiovascular HYSTERECTOMY JOINT REPLACEMENT Left knee ORTHOPEDIC SURGERY r wrist surgery, left ankle, right rotator cuff ROTATOR CUFF REPAIR Right SIGMOIDOSCOPY FLEXIBLE N/A 06/23/2022 Procedure: SIGMOIDOSCOPY FLEXIBLE WITH BIOPSY; Surgeon: Tyshawn Santos MD; Location: [facility]; Service: Gastroenterology THYROIDECTOMY N/A 07/15/2015 Procedure: TOTAL THYROIDECTOMY; Surgeon: Lopez Alonso MD; Location: [facility] NEURO OR; Service: US ECHO TRANSTHORACIC FOLLOWUP [...] Socioeconomic History Marital status: Occupational History 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 Normal [facility] EKGon 09-02-2024 [facility] INR Coag (PPP) [Relative pablo e]on 09-02-2024 Interpretation and review of laboratory results Normal [facility] PT Coag (PPP) [Time] 12.5 s [facility] During the induction phase of oral anticoagulation, the INR may not reflect the anticoagulation status of the patient. Therapeutic ranges for INR's are: Most clinical situations: INR 2.0-3.0 Mechanical Prosthetic Valve: INR 2.5-3.5 Critical: INR >5.0 [facility] Influenza virus A and B RNA and SARS-CoV-2 (COVID-19) N gene panel CATRINA+probe (Resp)Ordered By: Mahogany Schultz on 09-02-2024 FLUAV RNA CATRINA+probe Ql (Unsp spec) Not detected Not Detected [facility] FLUBV RNA CATRINA+probe Ql (Unsp spec) Not detected Not Detected [facility] Interpretation and review of laboratory results Normal [facility] SARS-CoV-2 (COVID-19) RNA CATRINA+probe Ql (Resp) Not detected Not Detected [facility] [id number] 85.7 mm Hg [facility] Comment on above: Performed By: #### L [id number] #### [facility] LAB [address] [place] [address] Maurice Coello M.D. [id number] BASE EXCESS, ARTERIAL 0.0 Normal -2.0-2.[address] [facility] Comment on above: Performed By: #### L [id number] #### [facility] LAB [address] [place] [address] Maurice Coello M.D. [id number] FIO2 35 Normal [facility] Comment on above: Performed By: #### L [id number] #### [facility] LAB [address] [place] [address] Maurice Coello M.D. [id number] HCO3 (Bld) [Moles/Vol] 26.9 mmol/L High 22.0-26.0 [facility] Comment on above: Performed By: #### L [id number] #### [facility] LAB [address] [place] [address] Maurice Coello M.D. [id number] Hematocrit (Bld) [Volume fraction] 36.0 % Normal 36.0-46.0 [facility] Comment on above: Performed By: #### L [id number] #### LAB [address] [place] [address] Maurice Coello M.D. [id number] Hemoglobin (Bld) [Mass/Vol] 11.8 g/dL Low 12.0-16.0 [facility] Comment on above: Performed By: #### L [id number] #### LAB [address] [place] [address] Maurice Coello M.D. [id number] Oxygen saturation in Blood 97.3 % Normal 92.0-99.0 [facility] Comment on above: Performed By: #### L [id number] #### LAB [address] [place] [address] Maurice Coello M.D. [id number] PCO2 ARTERIAL 53.5 mm Hg High 35.0-45.0 [facility] Comment on above: Performed By: #### L [id number] #### LAB [address] [place] [address] Maurice Coello M.D. [id number] PH ARTERIAL 7.31 Low 7.35-7.45 [facility] Comment on above: Performed By: #### L [id number] #### LAB [address] [place] [address] Maurice Coello M.D. [id number] PO2 ARTERIAL 94 mm Hg High 75-85 [facility] Comment on above: Performed By: #### L [id number] #### LAB [address] [place] [address] Maurice Coello M.D. [id number] SPECIMEN SOURCE RADIANCE Brachial, left Normal [facility] Comment on above: Performed By: #### L [id number] #### LAB [address] [place] [address] Maurice Coello M.D. [id number] POC Arterial Blood Gas Panel -Pulmon 09-02-2024 Alveolar-arterial oxygen Partial pressure difference 85.7 mm Hg [facility] Base excess Calc (Bld) [Moles/Vol] 0 mmol/L -2.0 - 2.0 [facility] CO2 (Bld) [Partial pressure] 53.5 mm[Hg] High [facility] Hematocrit (BldA) [Volume fraction] 36 % 36.0 - 46.0 % [facility] Inhaled oxygen concentration 35 % [facility] Interpretation and review of laboratory results Abnormal [facility] Oxygen (Bld) [Partial pressure] 94 mm[Hg] High [facility] pH (Bld) 7.31 [pH] Low 7.35 - 7.45 [facility] Specimen source Nom (Unsp spec) Brachial, left [facility] POC VENOUS BLOOD GAS PANEL-P SHAW Lindquist 09-02-2024 BASE EXCESS, VENOUS -0.2 Normal -2.0-2.0 [facility] Comment on above: Performed By: #### L [id number] #### [facility] LAB [address] [place] [address] Maurice Coello M.D. [id number] FIO2 36 Normal [facility] Comment on above: Performed By: #### L [id number] #### [facility] LAB [address] [place] [address] Maurice Coello M.D. [id number] HCO3 (Bld) [Moles/Vol] 28.8 mmol/L High 24.0-28.0 [facility] Comment on above: Performed By: #### L [id number] #### [facility] LAB [address] [place] [address] Maurice Coello M.D. [id number] Hematocrit (Bld) [Volume fraction] 38.0 % Normal 36.0-46.0 [facility] Comment on above: Performed By: #### L [id number] #### [facility] LAB [address] [place] [address] Maurice Coello M.D. [id number] Hemoglobin (Bld) [Mass/Vol] 12.4 g/dL Normal 12.0-16.0 [facility] Comment on above: Performed By: #### L [id number] #### [facility] LAB [address] [place] [address] Maurice Coello M.D. [id number] LITER FLOW 4 [facility] Comment on above: Performed By: #### L [id number] #### [facility] LAB [address] [place] [address] Maurice Coello M.D. [id number] Oxygen saturation in Blood 78.0 % High 40.0-70.0 [facility] Comment on above: Performed By: #### L [id number] #### [facility] LAB [address] [place] [address] Maurice Coello M.D. [id number] PCO2 VENOUS 67.6 mm Hg High 41.0-51.0 [facility] Comment on above: Performed By: #### L [id number] #### [facility] LAB [address] [place] [address] Maurice Coello M.D. [id number] PH VENOUS 7.24 Low 7.32-7.42 [facility] Comment on above: Performed By: #### L [id number] #### MH LAB [address] [address] Maurice Coello M.D. [id number] PO2 VENOUS 46 mm Hg High 25-40 [facility] Comment on above: Performed By: #### L [id number] #### LAB [address] [address] Maurice Coello M.D. [id number] SPECIMEN SOURCE RADIANCE Not specified [facility] Comment on above: Performed By: #### L [id number] #### MH LAB [address] [address] Maurice Coello M.D. [id number] POC Venous Blood Gas Panel[facility] 09-02-2024 Base excess Calc (BldV) [Moles/Vol] -0.2000 mmol/L -2.0 - 2.0 [facility] CO2 (BldV) [Partial pressure] 67.6 mm[Hg] High [facility] Hematocrit (BldA) [Volume fraction] 38 % 36.0 - 46.0 % [facility] Inhaled oxygen concentration 36 % [facility] Inhaled oxygen flow rate 4 L/min [facility] Interpretation and review of laboratory results Abnormal [facility] Oxygen (BldV) [Partial pressure] 46 mm[Hg] High [facility] Oxygen saturation in Venous blood 78 % High 40.0 - 70.0 % [facility] pH (BldV) 7.24 [pH] Low 7.32 - 7.42 [facility] Specimen source Nom (Unsp spec) Not specified [facility] PT/INRon 09-02-2024 INR Coag (PPP) [Relative time] 0.9 {INR} 0.8 - 1.1 [facility] INR Coag (PPP) [Relative time] 0.9 {INR} Normal 0.8-1.1 [facility] Comment on above: Order Comment: [facility] has implemented the eGFR calculation approach that does not have a coefficient for race that conforms to the NKF-ASN Task Force Recommendations. Performed By: #### 4 [id number] #### LAB [address] [address] Maurice Coello M.D. [id number] PT Coag (PPP) [Time] 12.5 s Normal 11.8-14.3 [facility] Comment on above: Order Comment: [facility] has implemented the eGFR calculation approach that does not have a coefficient for race that conforms to the NKF-ASN Task Force Recommendations. Performed By: #### 4 [id number] #### LAB [address] [address] Maurice Coello M.D. [id number] TROPONINon 09-02-2024 TROPONIN T DELTA CHANGE INTERPRETATION Probable non-acute cardiac injury or late presentation of acute injury. Normal [facility] Comment on above: Performed By: #### 4 [id number] #### LAB [address] [address] Maurice Coello M.D. [id number] TROPONIN T DELTA DIFFERENCE -4 ng/L Normal < = -/+ 7 change [facility] Comment on above: Performed By: #### 4 [id number] #### LAB [address] [address] Maurice Coello M.D. [id number] TROPONIN T NG/L 14 ng/L Normal <=14 [facility] Comment on above: Performed By: #### 4 [id number] #### LAB [address] [address] Maurice Coello M.D. [id number] BASELINE TROPONIN T NG/L 18 ng/L Off scale high <=14 [facility] Comment on above: Performed By: #### 4 [id number] #### LAB [address] [address] Maurice Coello M.D. [id number] TROPONIN T INTERPRETATION Possible acute cardiac injury. Normal [facility] Comment on above: Performed By: #### 4 [id number] #### LAB [address] [address] Maurice Coello M.D. [id number] Troponin x 2 (Now and Repeat in 3 hours)Ordered By: Bhumi Teixeira on 09-02-2024 Delta Difference Troponin T -4 ng/L < = -/+ 7 change [facility] Inter Troponin T Delta Change Probable non-acute cardiac injury or late presentation of acute injury. [facility] Troponin T 14 ng/L NINF - 14 ng/L [facility] Troponin x 2 (Now and Repeat in 3 hours)Ordered By: Sunita Rodriguez on 09-02-2024 Interpretation and review of laboratory results Abnormal [facility] Troponin T 18 ng/L Critically high NINF - 14 ng/L [facility] Troponin T Interpretation Possible acute cardiac injury. [facility] URINALYSISon 09-02-2024 BACTERIA, URINE None Seen Normal None Seen [facility] Comment on above: Order Comment: Micro scopic examination is performed on all urinalysis samples and only positive findings are reported. The test for blood on the chemical analytic portion of urinalysis may also be positive due to hemoglobinuria and myoglobinuria and if red blood cells are present they are quantified by microscopic examination. Performed By: #### 4 [id number] #### MH LAB [address] [address] Maurice Coello M.D. [id number] BILIRUBIN, URINE Negative Normal Negative [facility] Comment on above: Order Comment: Micro scopic examination is performed on all urinalysis samples and only positive findings are reported. The test for blood on the chemical analytic portion of urinalysis may also be positive due to hemoglobinuria and myoglobinuria and if red blood cells are present they are quantified by microscopic examination. Performed By: #### 4 [id number] #### LAB [address] [address] Maurice Coello M.D. [id number] BLOOD, URINE Small Abnormal Negative [facility] Comment on above: Order Comment: Micro scopic examination is performed on all urinalysis samples and only positive findings are reported. The test for blood on the chemical analytic portion of urinalysis may also be positive due to hemoglobinuria and myoglobinuria and if red blood cells are present they are quantified by microscopic examination. Performed By: #### 4 [id number] #### LAB [address] [address] Maurice Coello M.D. [id number] Clarity (U) Clear Normal Clear [facility] Comment on above: Order Comment: Micro scopic examination is performed on all urinalysis samples and only positive findings are reported. The test for blood on the chemical analytic portion of urinalysis may also be positive due to hemoglobinuria and myoglobinuria and if red blood cells are present they are quantified by microscopic examination. Performed By: #### 4 6932 #### LAB [address] [address] Maurice Coello M.D. [id number] Color (U) Colorless Normal Colorless, Yellow [facility] Comment on above: Order Comment: Micro scopic examination is performed on all urinalysis samples and only positive findings are reported. The test for blood on the chemical analytic portion of urinalysis may also be positive due to hemoglobinuria and myoglobinuria and if red blood cells are present they are quantified by microscopic examination. Performed By: #### 4 [id number] #### LAB [address] [address] Maurice Coello M.D. [id number] Glucose Ql (U) Negative Normal Negative [facility] Comment on above: Order Comment: Micro scopic examination is performed on all urinalysis samples and only positive findings are reported. The test for blood on the chemical analytic portion of urinalysis may also be positive due to hemoglobinuria and myoglobinuria and if red blood cells are present they are quantified by microscopic examination. Performed By: #### 4 [id number] #### LAB [address] [address] Maurice Coello M.D. [id number] Ketones Ql (U) Negative Normal Negative [facility] Comment on above: Order Comment: Micro scopic examination is performed on all urinalysis samples and only positive findings are reported. The test for blood on the chemical analytic portion of urinalysis may also be positive due to hemoglobinuria and myoglobinuria and if red blood cells are present they are quantified by microscopic examination. Performed By: #### 4 [id number] #### LAB [address] [address] Maurice Coello M.D. [id number] Leukocyte esterase Test strip Ql (U) Negative Normal Negative [facility] Comment on above: Order Comment: Micro scopic examination is performed on all urinalysis samples and only positive findings are reported. The test for blood on the chemical analytic portion of urinalysis may also be positive due to hemoglobinuria and myoglobinuria and if red blood cells are present they are quantified by microscopic examination. Performed By: #### 4 [id number] #### LAB [address] [address] Maurice Coello M.D. [id number] MUCUS, URINE Rare Normal None Seen, Rare [facility] Comment on above: Order Comment: Micro scopic examination is performed on all urinalysis samples and only positive findings are reported. The test for blood on the chemical analytic portion of urinalysis may also be positive due to hemoglobinuria and myoglobinuria and if red blood cells are present they are quantified by microscopic examination. Performed By: #### 4 [id number] #### LAB [address] [address] Maurice Coello M.D. [id number] NITRITE, URINE Negative Normal [facility] Comment on above: Order Comment: Micro scopic examination is performed on all urinalysis samples and only positive findings are reported. The test for blood on the chemical analytic portion of urinalysis may also be positive due to hemoglobinuria and myoglobinuria and if red blood cells are present they are quantified by microscopic examination. Performed By: #### 4 [id number] #### LAB [address] [address] Maurice Coello M.D. [id number] pH (U) 5.0 [pH] Normal 5.0-7.0 [facility] Comment on above: Order Comment: Micro scopic examination is performed on all urinalysis samples and only positive findings are reported. The test for blood on the chemical analytic portion of urinalysis may also be positive due to hemoglobinuria and myoglobinuria and if red blood cells are present they are quantified by microscopic examination. Performed By: #### 4 [id number] #### LAB [address] [place] [address] Maurice Coello M.D. [id number] PROTEIN, URINE Negative Normal Negative [facility] Comment on above: Order Comment: Micro scopic examination is performed on all urinalysis samples and only positive findings are reported. The test for blood on the chemical analytic portion of urinalysis may also be positive due to hemoglobinuria and myoglobinuria and if red blood cells are present they are quantified by microscopic examination. Performed By: #### 4 [id number] #### LAB [address] [address] Maurice Coello M.D. [id number] Specific gravity (U) [Rel density] 1.008 Normal 1.005-1.025 [facility] Comment on above: Order Comment: Micro scopic examination is performed on all urinalysis samples and only positive findings are reported. The test for blood on the chemical analytic portion of urinalysis may also be positive due to hemoglobinuria and myoglobinuria and if red blood cells are present they are quantified by microscopic examination. Performed By: #### 4 [id number] #### LAB [address] [address] Maurice Coello M.D. [id number] SQUAMOUS EPITHELIAL < Normal 0-4 [facility] Comment on above: Order Comment: Micro scopic examination is performed on all urinalysis samples and only positive findings are reported. The test for blood on the chemical analytic portion of urinalysis may also be positive due to hemoglobinuria and myoglobinuria and if red blood cells are present they are quantified by microscopic examination. Performed By: #### 4 [id number] #### LAB [address] [place], [place] [address] Maurice Coello M.D. [id number] UROBILINOGEN, URINE <2.0 Normal <2.0 [facility] Comment on above: Order Comment: Micro scopic examination is performed on all urinalysis samples and only positive findings are reported. The test for blood on the chemical analytic portion of urinalysis may also be positive due to hemoglobinuria and myoglobinuria and if red blood cells are present they are quantified by microscopic examination. Performed By: #### 4 [id number] #### LAB [address] [place], [place] [address] Maurice Coello M.D. [id number] WBC LM.HPF (Urine sed) [#/Area] 3 /[HPF] Normal 0-5 [facility] Comment on above: Order Comment: Micro scopic examination is performed on all urinalysis samples and only positive findings are reported. The test for blood on the chemical analytic portion of urinalysis may also be positive due to hemoglobinuria and myoglobinuria and if red blood cells are present they are quantified by microscopic examination. Performed By: #### 4 [id number] #### LAB [address] [place], [place] [address] Maurice Coello M.D. 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 Referring Physician: OLIVIA Contreras; Indications R60.0 - Localized edema Procedure Description 16191 Duplex examination using B-mode, color and spectral [...] Saphenous: - Small Saphenous: - - Normal [facility] Ultrasound duplex venous leg lefton 09-02-2024 Patient Info Name: RADHA SHAFER Age: 64 years : 1960 Gender: Female Exam Date: 09/02/2024 1:42 PM Patient Status: Inpatient 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: Prema Hale 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 Referring Physician: OLIVIA Contreras; Indications R60.0 - Localized edema Procedure Description 40526 Duplex examination using B-mode, color and spectral [...] Date: 09/02/2024 1:42 PM Patient Status: Inpatient 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: Prema Hale RVT Referring Physician: OLIVIA Contreras; Indications R60.0 - Localized edema Procedure Description 10014 Duplex examination using B-mode, color and spectral [...] Small Saphenous: - Small Saphenous: - - [facility] UrinalysisOrdered By: Nicol Perez on 09-02-2024 Bacteria Auto Ql (U) None Seen None Se en /hpf [facility] Bilirubin Ql (U) Negative Negative [facility] th Clarity Refractometry automated (U) Clear Clear [facility] Color (U) Colorless Colorless, Yellow [facility] Epithelial cells.squamous Auto (Urine sed) [#/Area] [facility] Glucose Auto test strip (U) [Mass/Vol] Negative Negative mg/dL [facility] Hemoglobin Auto test strip Ql (U) Small Abnormal Negative [facility] Interpretation and review of laboratory results Abnormal [facility] Ketones (U) [Mass/Vol] Negative Negat radha mg/dL [facility] Leukocyte esterase Auto test strip Ql (U) Negative Negative [facility] Mucus Auto (Urine sed) [#/Area] Rare None Seen, Rare /lpf [facility] Nitrite Auto test strip Ql (U) Negative Negative [facility] pH (U) 5 [pH] 5.0 - 7.0 [facility] Protein (U) [Mass/Vol] Negative Negat radha mg/dL [facility] Specific gravity (U) [Rel density] 1.008 1.005 - 1.025 [facility] Urobilinogen (U) [Mass/Vol] mg/dL NINF - 2.0 mg/dL [facility] WBC Auto (Urine sed) [#/Area] 3 [facility] Microscopic examinat ion is performed on all urinalysis samples and only positive findings are reported. The test for blood on the chemical analytic portion of urinalysis may also be positive due to hemoglobinuria and myoglobinuria and if red blood cells are present they are quantified by microscopic examination. [facility] VBG (obtain and perform)on [facility] XR CHEST PA/APon 09-02-2024 XR CHEST PA/AP EXAMINATION: XR CHEST PA/AP [...] is unremarkable. IMPRESSION: No acute cardiopulmonary process. [employer]/SensorCath Workstation ID: [id number] Dictated by: MARIA VICTORIA DAY on MonSep 02, 2024 12:06:39 PM EDT Transcribed by: DANN CAZARES on MonSep 02, 2024 12:21:49 PM EDT Finalized by: MARIA VICTORIA DAY on MonSep 02, 2024 9:39:39 PM EDT Normal [facility] Comment on above: Order Comment: Resul [...] Abdomen APon 09-02-2024 No acute cardiopulmonary process. [employer] Workstation ID: [id number] GE RIS EXAMINATION: XR [...] thorax is unremarkable. GE RIS Maria Victoria Day, DO - 09/02/2024 EXAMINATION: XR CHEST PA/AP [...] is unremarkable. IMPRESSION: No acute cardiopulmonary process. [employer] Workstation ID: [id number] [facility] Radiology Study observation (narrative) XR Chest PA and Abdomen APOr dered By: Maria Victoria Day on 09-02-2024 [facility] Work Phone: XR KNEE LEFT 2 VIEWS [...] chronicity, unspecified whether with hypoxia or hypercapnia ([facility]) J44.1 COPD exacerbation ([facility]) L03.116 Cellulitis of left knee COMPARISON: 03/19/2011. [...] MonSep 02, 2024 9:43:59 PM EDT Normal [facility] Comment on above: Order Comment: Resul [...] total knee replacement. ST/lab Workstation ID: [id number] Spootr RIS EXAMINATION: XR KNEE LEFT 2 VIEWS (STANDARD) HISTORY: ORDERING SYSTEM PROVIDED HISTORY: Pain, TECHNOLOGIST PROVIDED HISTORY: Injury/Trauma Reason for Exam: Left knee pain d/t injury Cancer History: Unknown Surgery, Radiation History: Cholecystectomy, hysterectomy, oophorectomy, left knee replacement Encounter Type: Initial Mechanism of Injury: Fall ORDERING SYSTEM PROVIDED DIAGNOSIS CODES: J96.90 Respiratory failure, unspecified chronicity, unspecified whether with hypoxia or hypercapnia ([facility]) J44.1 COPD exacerbation ([facility]) L03.116 Cellulitis of left knee COMPARISON: 03/19/2011. FINDINGS: Two views of the left knee. Prior total knee replacement. Hardware components are well seated with appropriate alignment. No periprosthetic fracture or hardware loosening. Suboptimal positioning on the lateral view. No significant joint effusion. Spootr RIS Maria Victoria Day, - 09/02/2024 EXAMINATION: XR KNEE LEFT 2 VIEWS (STANDARD) HISTORY: ORDERING SYSTEM PROVIDED HISTORY: Pain, TECHNOLOGIST PROVIDED HISTORY: Injury/Trauma Reason for Exam: Left knee pain d/t injury Cancer History: Unknown Surgery, Radiation History: Cholecystectomy, hysterectomy, oophorectomy, left knee replacement Encounter Type: Initial Mechanism of Injury: Fall ORDERING SYSTEM PROVIDED DIAGNOSIS CODES: J96.90 Respiratory failure, unspecified chronicity, unspecified whether with hypoxia or hypercapnia ([facility]) J44.1 COPD exacerbation ([facility]) L03.116 Cellulitis of left knee COMPARISON: 03/19/2011. FINDINGS: Two views of the left knee. Prior total knee replacement. Hardware components are well seated with appropriate alignment. No periprosthetic fracture or hardware loosening. Suboptimal positioning on the lateral view. No significant joint effusion. IMPRESSION: No acute osseous abnormality. Intact total knee replacement. ST/lab Workstation ID: [id number] [facility] Radiology Study observation (narrative) [facility] Neurology Visit Reporton Neurology Visit Report [facility] [address], [address] [place] [address] OFFICE VISIT Date of Service: 08/15/24 MR#: [id number] Acct: [id number] Name: RADHA SHAFER ANIL Rep #: [id number] : 1960 Provider: Dr. Rusty ayers MD Age/Sex: 64/F [place] [facility] [place] Status: Signed [facility] Chief Complaint: Details: Interim History: Radha returns for follow-up visit. She has stage III/IV chronic renal insufficiency, left-sided facial shingles (2020), sleep apnea (she uses supplemental oxygen; she no longer uses CPAP), and hypothyroidism. She sees a drama therapist. She had a left knee replacement in 2008. She has chronic low back pain. She previously saw a paint prep technician, Dr. Mancini, in 2018 and had lumbar [...] well- tolerated; she sees a physician at [facility] in [place] and is prescribed Dojolvi. Tizanidine is of [...] takes doxepin for insomnia. She saw a inspector technician in 2018 for right foot pain and [...] did not tolerate CPAP). She saw a bead wire insulator, Dr. Forde, for her positive Bence-Davila protein [...] CBC, ESR (more content not included)... Normal [facility] Basophil percentageOrdered B y: Jennifer [place] on 02-29-2024 Bilirubin [Mass/Vol] 0.20 mg/dL 0.20-1.00 [facility] Comment on above: For patients on eltr ombopag therapy, use of Dimension Voca TBIL is not recommended. Chloride [Moles/Vol] 104 mmol/L 98-107 [facility] Glucose [Mass/Vol] 137 mg/dL 74-106 [facility] Comment on above: Fasting Glucose resu lt greater than or equal to 126 mg/dL suggests DIABETES MELLITUS per A.D.A. criteria. Potassium [Moles/Vol] 4.7 mmol/L 3.5-5.1 [facility] Protein [Mass/Vol] 7.9 g/dL 6.4-8.2 [facility] Sodium [Moles/Vol] 138 mmol/L 136-145 [facility] Laboratory - Chemistry and C hemistry - challengeOrdered By: Jennifer Gordon on 02-29-2024 Albumin/Globulin [Mass ratio] 0.8 {ratio} 0.9-2.4 [facility] ALP [Catalytic activity/Vol] 85 U/L 45-117 [facility] ALT [Catalytic activity/Vol] 29 U/L 13-56 [facility] CO2 [Moles/Vol] 26.0 mmol/L 21.0-32.0 [facility] Globulin (S) [Mass/Vol] 4.4 g/dL 2.2-4.2 [facility] Urea nitrogen/Creatinine [Mass ratio] 10.6 mg/mg 10-20 [facility] No Panel InformationOrdered By: Jennifer Gordon on 02-29-2024 Estimated GFR (MDRD) Amer 34 mL/min >60 [facility] Comment on above: GFR Calc Estimated GFR (MDRD) Non-Af Amer 28 mL/min >60 [facility] Comment on above: Non- GFR Calc Serum or plasma calcium marivel urement (mass/volume)Ordered By: Jennifer Gordon on 02-29-2024 Calcium [Mass/Vol] 9.3 mg/dL 8.5-10.1 [facility] Serum or plasma creatinine m easurement (mass/volume)Ordered By: Jennifer Gordon on 02-29-2024 Creatinine [Mass/Vol] 1.89 mg/dL 0.55-1.02 [facility] Comment on above: The validity of the calculated GFR & GFRAA in patients over 70 years has not been determined. Clinical correlation is essential. Serum or plasma thyroid stim ulating hormone (TSH) measurement (units/volume)Ordered By: Jennifer Gordon on 02-29-2024 TSH Qn 1.67 uIU/mL 0.358-3.74 [facility] Serum or plasma urea nitroge n measurement (mass/volume)Ordered By: Jennifer Gordon on 02-29-2024 Urea nitrogen [Mass/Vol] 20 mg/dL 7-18 [facility] Thin prep Papanicolaou smear with manual screeningOrdered By: Jennifer Gordon on 02-29-2024 Thin prep Papanicolaou smear with manual screening 3.5 g/dL 3.2-5.0 [facility] Thin prep Papanicolaou smear with manual screening 45 U/L 15-37 [facility] Thin prep Papanicolaou smear with manual screening 8 5-15 [facility] Whole blood hemoglobin A1c/t otal hemoglobin ratio (mass fraction)Ordered By: Jennifer Gordon on 02-29-2024 HbA1c (Bld) [Mass fraction] 5.9 % 3.8-5.6 [facility] Comment on above: Normal < 5.7 % Predi abetic 5.7 - 6.4 % Diabetic >or= 6.5 % Please note range changes. Absolute lymphocyte countOrd ered By: German Kamara on 12-29-2023 Lymphocytes Auto (Unsp spec) [#/Vol] 1.90 10*3/uL 0.83-4.51 [facility] Automated lymphocyte count a s percentage of total leukocytesOrdered By: German Kamara on 12-29-2023 Lymphocytes/100 WBC Auto (Unsp spec) 17.8 % 19-41 [facility] [facility] [place] Basophil percentageOrdered B y: Jennifer Gordon on 12-29-2023 Bilirubin [Mass/Vol] 0.20 mg/dL 0.20-1.00 [facility] Comment on above: For patients on eltr ombopag therapy, use of Dimension Voca TBIL is not recommended. Chloride [Moles/Vol] 106 mmol/L 98-107 [facility] Cholesterol [Mass/Vol] 210 mg/dL <200 [facility] Comment on above: <200 mg/dL Desirable 200-240 mg/dL Borderline >240 mg/dL High Risk Glucose [Mass/Vol] 141 mg/dL 74-106 [facility] Comment on above: Fasting Glucose resu lt greater than or equal to 126 mg/dL suggests DIABETES MELLITUS per A.D.A. criteria. Potassium [Moles/Vol] 4.6 mmol/L 3.5-5.1 [facility] Protein [Mass/Vol] 7.7 g/dL 6.4-8.2 [facility] Sodium [Moles/Vol] 137 mmol/L 136-145 [facility] Triglyceride [Mass/Vol] 265 mg/dL <199 [facility] Comment on above: The drugs N-Acetylcy steine and Metamizole may falsely depress this assay.Serum Triglycerides Reference Interval Normal <150 mg/dL Borderline high 150 - 199 mg/dL High 200 - 499 mg/dL Very High > or = 500 mg/dL Basophil percentageOrdered B y: German Kamara on 12-29-2023 Basophils/100 WBC (Bld) 0.8 % 0-1 [facility] Eosinophils/100 WBC (Bld) 2.2 % 0-5 [facility] [place] Hemoglobin (Bld) [Mass/Vol] 11.7 g/dL 12.0-15.0 [facility] [place] Monocytes/100 WBC (Bld) 6.9 % 0-10 [facility] Neutrophils (Bld) [#/Vol] 7.7 10*3/uL 2.0-7.7 [facility] [place] Neutrophils/100 WBC (Bld) 71.8 % 47-70 [facility] [place] WBC (Bld) [#/Vol] 10.7 10*3/uL 4.4-11.0 [facility] Bilirubin Test strip Ql (U)O rdered By: German Kamara on 12-29-2023 Bilirubin Ql (U) Negative Negative [facility] [place] Determination of erythrocyte mean corpuscular volume (MCV)Ordered By: German Kamara on 12-29-2023 MCV (RBC) [Entitic vol] 85.8 fL 81-99 [facility] Erythrocyte distribution wid th ratioOrdered By: German Kamara on 12-29-2023 Erythrocyte distribution width (RBC) [Ratio] 15.9 % 11.6-14.6 [facility] [place] Erythrocyte distribution wid th standard deviationOrdered By: German Kamara on 12-29-2023 Erythrocyte distribution width (RBC) [Entitic vol] 50.2 fL 35.1-43.9 [facility] [place] Hematocrit Auto (Bld) [Volum e fraction]Ordered By: German Kamara on 12-29-2023 Hematocrit (Bld) [Volume fraction] 39.3 % 37-47 [facility] [place] Immature granulocytes/100 WB C Auto (Bld)Ordered By: German Kamara on 12-29-2023 Immature granulocytes/100 WBC (Bld) 0.500 % 0.0-0.9 [facility] [place] Comment on above: IG% - Immature Granu locytes (promyelocytes, myelocytes and metamyelocytes) > 1% indicates that a LEFT SHIFT is Present. Ketones Test strip Ql (U)Ord ered By: German Kamara on 12-29-2023 Ketones Ql (U) Negative Negative [facility] [place] Laboratory - Chemistry and C hemistry - challengeOrdered By: Jennifer Gordon on 12-29-2023 Albumin/Globulin [Mass ratio] 0.8 {ratio} 0.9-2.4 [facility] [place] ALP [Catalytic activity/Vol] 89 U/L 45-117 [facility] [place] ALT [Catalytic activity/Vol] 21 U/L 13-56 [facility] [place] Cholesterol in HDL [Mass/Vol] 36 mg/dL >40 [facility] [place] Comment on above: The drugs N-Acetylcy steine and Metamizole may falsely depress this assay. Reference Range HDL <40 mg/dL Low HDL Cholesterol HDL >or= 60 mg/dL High HDL Cholesterol Cholesterol in LDL [Mass/Vol] 121 mg/dL 0-130 [facility] [place] CO2 [Moles/Vol] 26.0 mmol/L 21.0-32.0 [facility] [place] Globulin (S) [Mass/Vol] 4.3 g/dL 2.2-4.2 [facility] Magnesium [Mass/Vol] 2.3 mg/dL 1.6-2.6 [facility] Urea nitrogen/Creatinine [Mass ratio] 13.5 mg/mg 10-20 [facility] [place] Laboratory - Hematology and Cell countsOrdered By: German Kamara on 12-29-2023 MCH (RBC) [Entitic mass] 25.5 pg 27.0-32.0 [facility] [place] MCHC (RBC) [Mass/Vol] 29.8 g/dL 32-36 [facility] Nucleated RBC/100 WBC (Bld) [Ratio] 0 % 0-5 [facility] [place] Platelet mean volume (Bld) [Entitic vol] 10.2 fL 6.2-12.0 [facility] [place] Platelets (Bld) [#/Vol] 350 10*3/uL 150-450 [facility] [place] Nitrite Test strip Ql (U)Ord ered By: German Kamara on 12-29-2023 Nitrite Ql (U) Negative Negative [facility] [place] No Panel InformationOrdered By: Jennifer Gordon on 12-29-2023 Estimated GFR (MDRD) Amer 33 mL/min >60 [facility] [place] Comment on above: GFR Calc Estimated GFR (MDRD) Non-Af Amer 28 mL/min >60 [facility] [place] Comment on above: Non- GFR Calc VLDL Cholesterol 53 mg/dL 5-40 [facility] [place] No Panel InformationOrdered By: German Kamara on 12-29-2023 Parathyroid Hormone (Intact) 96.2 pg/mL 18.4-80.1 [facility] [place] Vitamin D 25-Hydroxy 65.9 ng/mL [facility] Comment on above: Vitamin D 25(OH) Sta tus Range Deficiency <20 ng/mL (50nmol/L) Insufficiency 20 - 30 ng/mL (50 - 75 nmol/L) Sufficiency 30 - 100 ng/mL (75 - 250 nmol/L) Toxicity >100 ng/mL (>250 nmol/L) Protein Test strip Ql (U)Ord ered By: German Kamara on 12-29-2023 Protein Ql (U) 100 mg/dl Negative [facility] [place] RBC Auto (Bld) [#/Vol]Ordere d By: German Kamara on 12-29-2023 RBC (Bld) [#/Vol] 4.58 10*6/uL 4.2-5.4 [facility] Serum or plasma calcium marivel urement (mass/volume)Ordered By: Jennifer Gordon on 12-29-2023 Calcium [Mass/Vol] 8.9 mg/dL 8.5-10.1 [facility] Serum or plasma creatinine m easurement (mass/volume)Ordered By: Jennifer Gordon on 12-29-2023 Creatinine [Mass/Vol] 1.93 mg/dL 0.55-1.02 [facility] Comment on above: The validity of the calculated GFR & GFRAA in patients over 70 years has not been determined. Clinical correlation is essential. Serum or plasma thyroid stim ulating hormone (TSH) measurement (units/volume)Ordered By: Jennifer Gordon on 12-29-2023 TSH Qn 24.50 uIU/mL 0.358-3.74 [facility] [place] Serum or plasma triiodothyro nine measurement by immunoassay (mass/volume)Ordered By: Jennifer Gordon on 12-29-2023 T3 IA [Mass/Vol] 1.06 ng/mL 0.6-1.81 [facility] [place] Serum or plasma urea nitroge n measurement (mass/volume)Ordered By: Jennifer Gordon on 12-29-2023 Urea nitrogen [Mass/Vol] 26 mg/dL 7-18 [facility] [place] Thin prep Papanicolaou smear with manual screeningOrdered By: Jennifer Gordon on 12-29-2023 Thin prep Papanicolaou smear with manual screening 3.4 g/dL 3.2-5.0 [facility] [place] Thin prep Papanicolaou smear with manual screening 20 U/L 15-37 [facility] [place] Thin prep Papanicolaou smear with manual screening 5 5-15 [facility] [place] Thin prep Papanicolaou smear with manual screening 1.10 ng/dL 0.76-1.46 [facility] [place] Thin prep Papanicolaou smear with manual screeningOrdered By: German Kamara on 12-29-2023 Protein (U) [Mass/Vol] 62.0 mg/dL 0.0-11.8 [facility] Urine blood detectionOrdered By: German Kamara on 12-29-2023 RBC Ql (U) Negative Negative [facility] [place] Urine clarityOrdered By: Ludin Kamara on 12-29-2023 Clarity (U) Clear Clear [facility] [place] Urine color determinationOrd ered By: German Kamara on 12-29-2023 Color (U) Yellow Yellow [facility] [place] Urine creatinine measurement (mass/volume)Ordered By: German Kamara on 12-29-2023 Creatinine (U) [Mass/Vol] 98.60 mg/dL NO RANGE EST. [facility] [place] Urine glucose detectionOrder ed By: German Kamara on 12-29-2023 Glucose Ql (U) Normal mg/dl Normal [facility] [place] Urine leukocyte esterase det ection by dipstickOrdered By: German Kamara on 12-29-2023 Leukocyte esterase Test strip Ql (U) 100 /ul Negative [facility] [place] Urine pHOrdered By: Harriet Kamara on 12-29-2023 pH (U) 6.0 [pH] 5.0 - 8.0 [facility] [place] Urine protein/creatinine mas s ratioOrdered By: German Kamara on 12-29-2023 Protein/Creatinine (U) [Mass ratio] 629 mg/g CRE 0-200 [facility] [place] Urine specific gravity measu rementOrdered By: German Kamara on 12-29-2023 Specific gravity (U) [Rel density] 1.015 1.002-1.030 [facility] [place] Urine urobilinogen measureme ntOrdered By: German Kamara on 12-29-2023 Urobilinogen Ql (U) Normal mg/dl Normal [facility] Albumin Elph [Mass/Vol]Order ed By: Rusty Dozier on 11-28-2023 Albumin [Mass/Vol] 3.8 g/dL 2.9-4.4 [facility] Basophil percentageOrdered B y: Rusty Dozier on 11-28-2023 Basophil percentage Comment . [facility] Comment on above: Bence Davila Protein positive; kappa type.Performed at: - [address] [id number] Director: Myron Kennedy PhD, Phone: [phone] Interpretation of serum or p lasma protein pattern by immunofixation (narrative resultOrdered By: Rusty Dozier on 11-28-2023 Protein Fractions Immunofixation Jamison [Interp] Not Observed g/dL Not Observed [facility] [place] Laboratory - Chemistry and C hemistry - challengeOrdered By: Rusty Dozier on 11-28-2023 IgM (U) [Mass/Vol] 58 mg/dL 26-217 [facility] No Panel InformationOrdered By: Rusty Dozier on 11-28-2023 Addendum Document Comment . [facility] [place] Comment on above: Protein electrophore sis scan will follow via computer,mail, or coat operator insulator delivery. Free Lambda Light Chains, Quant 41.5 mg/L 5.7-26.3 [facility] [place] Serum [id number] measu rement by electrophoresisOrdered By: Rusty Dozier on 11-28-2023 Alpha 1 globulin Elph [Mass/Vol] 0.2 g/dL 0.0-0.4 [facility] [place] Alpha 1 globulin Elph [Mass/Vol] 1.0 g/dL 0.4-1.0 [facility] [place] Serum globulin measurement ( mass/volume)Ordered By: Rusty Dozier on 11-28-2023 Globulin (S) [Mass/Vol] 3.6 g/dL 2.2-3.9 [facility] Serum immunoglobulin kappa l ight chains/immunoglobulin lambda light chains mass ratioOrdered By: Rusty Dozier on 11-28-2023 Immunoglobulin light chains.kappa/Immunoglob ulin light chains.lambda (S) [Mass ratio] 1.26 0.26-1.65 [facility] [place] Serum or plasma IgA measurem ent (mass/volume)Ordered By: Rusty Dozier on 11-28-2023 IgA [Mass/Vol] 147 mg/dL 87-352 [facility] [place] Serum or plasma IgG measurem ent (mass/volume)Ordered By: Rusty Dozier on 11-28-2023 IgG [Mass/Vol] 1444 mg/dL 586-1602 [facility] [place] Serum or plasma beta globuli n measurement by electrophoresis (mass/volume)Ordered By: Rusty Dozier on 11-28-2023 Beta globulin Elph [Mass/Vol] 1.1 g/dL 0.7-1.3 [facility] [place] Serum or plasma gamma globul in measurement by electrophoresis (mass/volume)Ordered By: Rusty Dozier on 11-28-2023 Gamma globulin Elph [Mass/Vol] 1.3 g/dL 0.4-1.8 [facility] [place] Serum or plasma immunoelectr ophoresis interpretation (nominal result)Ordered By: Rustysiddharth Dozier on 11-28-2023 Interpretation IEP [Interp] Comment . [facility] [place] Comment on above: No monoclonality det ected. Serum or plasma immunoglobul in kappa light chains measurement (mass/volume)Ordered By: Rusty Dozier on 11-28-2023 Immunoglobulin light chains.kappa [Mass/Vol] 52.2 mg/L 3.3-19.4 [facility] [place] Thin prep Papanicolaou smear with manual screeningOrdered By: Rusty Dozier on 11-28-2023 Thin prep Papanicolaou smear with manual screening 1.1 0.7-1.7 [facility] [place] Total protein bloodOrdered B y: Rusty Dozier on 11-28-2023 Protein [Mass/Vol] 7.4 g/dL 6.0-8.5 [facility] Tendon Injection: Flexor Ten don Sheathon 10-16-2023 Rivas Jules MD 10/16/2023 2:42 PM Tendon Injection: Flexor Tendon Sheath Performed by: Rivas Jules MD Authorized by: Rivas Jules MD Consent given by: Patient Timeout performed at: 10/16/2023 2:41 PM Indications: Pain Location: Thumb Laterality: Left Needle size: 22 G Medications: 80 mg methylPREDNISolone acetate 40 mg/mL Anesthetic used: Lidocaine 1% [facility] Absolute lymphocyte countOrd ered By: Jennifer Gordon on 06-05-2023 Lymphocytes Auto (Unsp spec) [#/Vol] 2.66 10*3/uL 0.83-4.51 [facility] [place] Basophil percentageOrdered B y: Jennifer Gordon on 06-05-2023 Basophils/100 WBC (Bld) 0.8 % 0-1 [facility] Bilirubin [Mass/Vol] 0.20 mg/dL 0.20-1.00 [facility] Comment on above: For patients on eltr ombopag therapy, use of Dimension Voca TBIL is not recommended. Chloride [Moles/Vol] 104 mmol/L 98-107 [facility] Cholesterol [Mass/Vol] 220 mg/dL <200 [facility] Comment on above: <200 mg/dL Desirable 200-240 mg/dL Borderline >240 mg/dL High Risk Eosinophils/100 WBC (Bld) 3.4 % 0-5 [facility] [place] Glucose [Mass/Vol] 107 mg/dL 74-106 [facility] Comment on above: Fasting Glucose resu lt from 100 to 125 mg/dL suggests IMPAIRED HOMEOSTASIS per A.D.A. criteria. Neutrophils (Bld) [#/Vol] 6.1 10*3/uL 2.0-7.7 [facility] [place] Neutrophils/100 WBC (Bld) 60.7 % 47-70 [facility] [place] Potassium [Moles/Vol] 5.4 mmol/L 3.5-5.1 [facility] Protein [Mass/Vol] 8.1 g/dL 6.4-8.2 [facility] Sodium [Moles/Vol] 136 mmol/L 136-145 [facility] Triglyceride [Mass/Vol] 240 mg/dL <199 [facility] Comment on above: The drugs N-Acetylcy steine and Metamizole may falsely depress this assay.Serum Triglycerides Reference Interval Normal <150 mg/dL Borderline high 150 - 199 mg/dL High 200 - 499 mg/dL Very High > or = 500 mg/dL WBC (Bld) [#/Vol] 10.0 10*3/uL 4.4-11.0 [facility] Blood erythrocytes count (nu mber/volume)Ordered By: Jennifer Gordon on 06-05-2023 RBC (Bld) [#/Vol] 4.74 10*6/uL 4.2-5.4 [facility] Blood hemoglobin measurement (mass/volume)Ordered By: Jennifer Gordon on 06-05-2023 Hemoglobin (Bld) [Mass/Vol] 11.5 g/dL 12.0-15.0 [facility] [place] Blood lymphocytes/100 leukoc ytesOrdered By: Jennifer Gordon on 06-05-2023 Lymphocytes/100 WBC (Bld) 26.7 % 19-41 [facility] [place] Blood monocytes/100 leukocyt esOrdered By: Jennifer Gordon on 06-05-2023 Monocytes/100 WBC (Bld) 7.9 % 0-10 [facility] Blood platelet mean volumeOr dered By: Jennifer Gordon on 06-05-2023 Platelet mean volume (Bld) [Entitic vol] 10.5 fL 6.2-12.0 [facility] [place] Determination of erythrocyte mean corpuscular volume (MCV)Ordered By: Jennifer Gordon on 06-05-2023 MCV (RBC) [Entitic vol] 83.8 fL 81-99 [facility] Hematocrit Auto (Bld) [Volum e fraction]Ordered By: Jennifer Gordon on 06-05-2023 Hematocrit (Bld) [Volume fraction] 39.7 % 37-47 [facility] [place] Laboratory - Chemistry and C hemistry - challengeOrdered By: Jennifer Gordon on 06-05-2023 ALP [Catalytic activity/Vol] 105 U/L 45-117 [facility] [place] ALT [Catalytic activity/Vol] 18 U/L 13-56 [facility] [place] CO2 [Moles/Vol] 26.0 mmol/L 21.0-32.0 [facility] [place] Globulin (S) [Mass/Vol] 4.6 g/dL 2.2-4.2 [facility] Lipase [Catalytic activity/Vol] 69 U/L 13-75 [facility] [place] Comment on above: Please note:LIPASE r evised reference range effective 23. New Lipase methodology. Expected to produce lower values than the previous assay method. NEW Reference Range: 13 - 75 U/L Urea nitrogen/Creatinine [Mass ratio] 12.2 mg/mg 10-20 [facility] [place] Laboratory - Hematology and Cell countsOrdered By: Jennifer Gordon on 06-05-2023 Erythrocyte distribution width (RBC) [Entitic vol] 50.5 fL 35.1-43.9 [facility] [place] Erythrocyte distribution width (RBC) [Ratio] 16.6 % 11.6-14.6 [facility] [place] Immature granulocytes/100 WBC (Bld) 0.500 % 0.0-0.9 [facility] [place] Comment on above: IG% - Immature Granu locytes (promyelocytes, myelocytes and metamyelocytes) > 1% indicates that a LEFT SHIFT is Present. MCH (RBC) [Entitic mass] 24.3 pg 27.0-32.0 [facility] [place] Nucleated RBC/100 WBC (Bld) [Ratio] 0 % 0-5 [facility] [place] MCHC Auto (RBC) [Mass/Vol]Or dered By: Jennifer Gordon on 06-05-2023 MCHC (RBC) [Mass/Vol] 29.0 g/dL 32-36 [facility] No Panel InformationOrdered By: Jennifer Gordon on 06-05-2023 Endomysial IgA Antibody Negative Negative [facility] Estimated GFR (MDRD) Amer 36 mL/min >60 [facility] [place] Comment on above: GFR Calc Estimated GFR (MDRD) Non-Af Amer 30 mL/min >60 [facility] [place] Comment on above: Non- GFR Calc Thyroid Stimulating Hormone (TSH) 0.12 uIU/mL 0.358-3.74 [facility] [place] Vitamin D 25-Hydroxy 42.0 ng/mL [facility] Comment on above: Vitamin D 25(OH) Sta tus Range Deficiency <20 ng/mL (50nmol/L) Insufficiency 20 - 30 ng/mL (50 - 75 nmol/L) Sufficiency 30 - 100 ng/mL (75 - 250 nmol/L) Toxicity >100 ng/mL (>250 nmol/L) Platelets bldOrdered By: Amadou Gordon on 06-05-2023 Platelets (Bld) [#/Vol] 370 10*3/uL 150-450 [facility] [place] Serum IgA measurement (units /volume)Ordered By: Jennifer Gordon on 06-05-2023 IgA Qn (S) 135 mg/dL 87-352 [facility] [place] Comment on above: Performed at: - [facility] [address] [id number] Director: Myron Kennedy PhD, Phone: [phone] Serum or plasma albumin marivel urement (mass/volume)Ordered By: Jennifer Gordon on 06-05-2023 Albumin [Mass/Vol] 3.5 g/dL 3.2-5.0 [facility] Serum or plasma albumin/glob ulin mass ratioOrdered By: Jennifer Gorodn on 06-05-2023 Albumin/Globulin [Mass ratio] 0.8 {ratio} 0.9-2.4 [facility] [place] Serum or plasma calcium marivel urement (mass/volume)Ordered By: Jennifer Gordon on 06-05-2023 Calcium [Mass/Vol] 9.1 mg/dL 8.5-10.1 [facility] Serum or plasma cholesterol in HDL measurement (mass/volume)Ordered By: Jennifer Gordon on 06-05-2023 Cholesterol in HDL [Mass/Vol] 40 mg/dL >40 [facility] [place] Comment on above: The drugs N-Acetylcy steine and Metamizole may falsely depress this assay. Reference Range HDL <40 mg/dL Low HDL Cholesterol HDL >or= 60 mg/dL High HDL Cholesterol Serum or plasma cholesterol in VLDL measurement (mass/volume)Ordered By: Jennifer Gordon on 06-05-2023 Cholesterol in VLDL [Mass/Vol] 48 mg/dL 5-40 [facility] [place] Serum or plasma creatinine m easurement (mass/volume)Ordered By: Jennifer Gordon on 06-05-2023 Creatinine [Mass/Vol] 1.80 mg/dL 0.55-1.02 [facility] Comment on above: The validity of the calculated GFR & GFRAA in patients over 70 years has not been determined. Clinical correlation is essential. Serum or plasma low density lipoprotein (LDL) cholesterol measurement (mass/volume)Ordered By: Jennifer Gordon on 06-05-2023 Cholesterol in LDL [Mass/Vol] 132 mg/dL 0-130 [facility] [place] Serum or plasma urea nitroge n measurement (mass/volume)Ordered By: Jennifer Gordon on 06-05-2023 Urea nitrogen [Mass/Vol] 22 mg/dL 7-18 [facility] [place] Serum tissue transglutaminas e IgA antibody assay (units/volume)Ordered By: Jennifer Gordon on 06-05-2023 tTG IgA Qn (S) <2 U/mL 0-3 [facility] [place] Comment on above: Negative 0 - 3 Weak Positive 4 - 10 Positive >10 Tissue Transglutaminase (tTG) has been identified as the endomysial antigen. Studies have demonstr- ated that endomysial IgA antibodies have over 99% specificity for gluten sensitive enteropathy. Thin prep Papanicolaou smear with manual screeningOrdered By: Jennifer Gordon on 06-05-2023 Thin prep Papanicolaou smear with manual screening 17 U/L 15-37 [facility] [place] Thin prep Papanicolaou smear with manual screening 6 5-15 [facility] [place] ACYLCARNITINES, QUANTITATIVE , BLOOD SPOT FILTER PAPERon 02-15-2023 3-Hydroxyisovalerylcarn itine (C5-OH) (DBS) [Moles/Vol] 0.12 umol/L NINF - 0.40 umol/L [facility] Acylcarnitine pattern [Interp] Interpretation: [facility] Comment on above: Clinical correlation suggested. Mild elevation in isovalerylcarnitine (C5), can be seen in isovaleric acidemia. Otherwise unremarkable profile. Adipoylcarnitine (C6-DC) (DBS) [Moles/Vol] <0.01 NINF - 0.10 umol/L [facility] C0 (DBS) [Moles/Vol] 19.70 umol/L 15.0 - 55.0 umol/L [facility] C10 (DBS) [Moles/Vol] 0.09 umol/L NINF - 0.25 umol/L [facility] C10:1 (DBS) [Moles/Vol] <0.08 NINF - 0.50 umol/L [facility] C10:2 (DBS) [Moles/Vol] <0.04 NINF - 0.28 umol/L [facility] C12 (DBS) [Moles/Vol] 0.14 umol/L High NINF - 0.13 umol/L [facility] C12:1 (DBS) [Moles/Vol] 0.03 umol/L NINF - 0.19 umol/L [facility] C14 (DBS) [Moles/Vol] 0.17 umol/L High NINF - 0.15 umol/L [facility] C14-OH (DBS) [Moles/Vol] 0.02 umol/L NINF - 0.13 umol/L [facility] C14:1 (DBS) [Moles/Vol] 0.05 umol/L NINF - 0.21 umol/L [facility] C14:2 (DBS) [Moles/Vol] 0.02 umol/L NINF - 0.12 umol/L [facility] C16 (DBS) [Moles/Vol] 1.25 umol/L NINF - 1.73 umol/L [facility] C16-OH (DBS) [Moles/Vol] 0.02 umol/L NINF - 0.10 umol/L [facility] C16:1 (DBS) [Moles/Vol] 0.12 umol/L NINF - 0.19 umol/L [facility] C16:1-OH (DBS) [Moles/Vol] 0.11 umol/L High NINF - 0.11 umol/L [facility] C18 (DBS) [Moles/Vol] 0.46 umol/L NINF - 1.19 umol/L [facility] C18-OH (DBS) [Moles/Vol] 0.02 umol/L NINF - 0.04 umol/L [facility] C18:1 (DBS) [Moles/Vol] 0.87 umol/L 0.24 - 2.64 umol/L [facility] C18:1-OH (DBS) [Moles/Vol] <0.07 NINF - 0.07 umol/L [facility] C18:2 (DBS) [Moles/Vol] 0.25 umol/L NINF - 1.00 umol/L [facility] C18:2-OH (DBS) [Moles/Vol] <0.03 NINF - 0.15 umol/L [facility] C2 (DBS) [Moles/Vol] 10.45 umol/L 2.77 - 30.47 umol/L [facility] C3 (DBS) [Moles/Vol] 1.63 umol/L NINF - 2.35 umol/L [facility] C3-DC (DBS) [Moles/Vol] <0.04 NINF - 0.15 umol/L [facility] C4-DC (DBS) [Moles/Vol] 0.28 umol/L NINF - 0.84 umol/L [facility] C4-OH (DBS) [Moles/Vol] 0.03 umol/L NINF - 0.21 umol/L [facility] C5-DC (DBS) [Moles/Vol] 0.03 umol/L NINF - 0.11 umol/L [facility] C6 (DBS) [Moles/Vol] 0.05 umol/L NINF - 0.16 umol/L [facility] C8 (DBS) [Moles/Vol] 0.05 umol/L NINF - 0.14 umol/L [facility] C8:1 (DBS) [Moles/Vol] 0.08 umol/L NINF - 0.35 umol/L [facility] Interpretation and review of laboratory results Abnormal [facility] Isobutyrylcarnitine (C4) (DBS) [Moles/Vol] 0.21 umol/L NINF - 0.50 umol/L [facility] Isovalerylcarnitine+Met hylbutyrylcarnitine (C5) (DBS) [Moles/Vol] 0.44 umol/L High NINF - 0.28 umol/L [facility] Service comment 02 (Unsp spec) [Interp] This test was developed and its performance characteristics determined by [facility]. It has not been cleared or approved by the FDA. The laboratory is regulated under CLIA as qualified to perform high complexity testing. This test is used for clinical purposes. It should not be regarded as investigational or for research. [facility] Tiglylcarnitine (C5:1) (DBS) [Moles/Vol] 0.01 umol/L NINF - 0.50 umol/L [facility] Acylcarnitine panelon 2022 3-Hydroxyisovalerylcarn itine (C5-OH) [Moles/Vol] Test ordered in error based on source collected. Appropriate test code has been ordered. NINF - 0.20 umol/L [facility] Comment on above: PER SAMPLE RECVD REO RDERED FPACP SEE 3-Hydroxytetradecenoylc arnitine (C14:1-OH) [Moles/Vol] Test ordered in error based on source collected. Appropriate test code has been ordered. NINF - 0.13 umol/L [facility] Comment on above: PER SAMPLE RECVD REO RDERED FPACP SEE Acylcarnitine pattern [Interp] Test ordered in error based on source collected. Appropriate test code has been ordered. [facility] Comment on above: PER SAMPLE RECVD REO RDERED FPACP SEE Adipoylcarnitine (C6-DC) [Moles/Vol] Test ordered in error based on source collected. Appropriate test code has been ordered. NINF - 0.13 umol/L [facility] Comment on above: PER SAMPLE RECVD REO RDERED FPACP SEE C0 [Moles/Vol] Test ordered in erro r based on source collected. Appropriate test code has been ordered. 22 - 52 umol/L [facility] Comment on above: PER SAMPLE RECVD REO RDERED FPACP SEE C10 [Moles/Vol] Test ordered in erro r based on source collected. Appropriate test code has been ordered. NINF - 1.05 umol/L [facility] Comment on above: PER SAMPLE RECVD REO RDERED FPACP SEE C10:1 [Moles/Vol] Test ordered in erro r based on source collected. Appropriate test code has been ordered. NINF - 0.53 umol/L [facility] Comment on above: PER SAMPLE RECVD REO RDERED FPACP SEE C10:2 [Moles/Vol] Test ordered in erro r based on source collected. Appropriate test code has been ordered. NINF - 0.30 umol/L [facility] Comment on above: PER SAMPLE RECVD REO RDERED FPACP SEE C12 [Moles/Vol] Test ordered in erro r based on source collected. Appropriate test code has been ordered. NINF - 0.34 umol/L [facility] Comment on above: PER SAMPLE RECVD REO RDERED FPACP SEE C12-OH [Moles/Vol] Test ordered in erro r based on source collected. Appropriate test code has been ordered. NINF - 0.09 umol/L [facility] Comment on above: PER SAMPLE RECVD REO RDERED FPACP SEE C12:1 [Moles/Vol] Test ordered in erro r based on source collected. Appropriate test code has been ordered. NINF - 0.35 umol/L [facility] Comment on above: PER SAMPLE RECVD REO RDERED FPACP SEE C14 [Moles/Vol] Test ordered in erro r based on source collected. Appropriate test code has been ordered. NINF - 0.17 umol/L [facility] Comment on above: PER SAMPLE RECVD REO RDERED FPACP SEE C14-OH [Moles/Vol] Test ordered in erro r based on source collected. Appropriate test code has been ordered. NINF - 0.08 umol/L [facility] Comment on above: PER SAMPLE RECVD REO RDERED FPACP SEE C14:1 [Moles/Vol] Test ordered in erro r based on source collected. Appropriate test code has been ordered. NINF - 0.32 umol/L [facility] Comment on above: PER SAMPLE RECVD REO RDERED FPACP SEE C14:2 [Moles/Vol] Test ordered in erro r based on source collected. Appropriate test code has been ordered. NINF - 0.22 umol/L [facility] Comment on above: PER SAMPLE RECVD REO RDERED FPACP SEE C16 [Moles/Vol] Test ordered in erro r based on source collected. Appropriate test code has been ordered. NINF - 0.29 umol/L [facility] Comment on above: PER SAMPLE RECVD REO RDERED FPACP SEE C16-OH [Moles/Vol] Test ordered in erro r based on source collected. Appropriate test code has been ordered. NINF - 0.06 umol/L [facility] Comment on above: PER SAMPLE RECVD REO RDERED FPACP SEE C16:1 [Moles/Vol] Test ordered in erro r based on source collected. Appropriate test code has been ordered. NINF - 0.10 umol/L [facility] Comment on above: PER SAMPLE RECVD REO RDERED FPACP SEE C16:1-OH [Moles/Vol] Test ordered in err or based on source collected. Appropriate test code has been ordered. NINF - 0.07 umol/L [facility] Comment on above: PER SAMPLE RECVD REO RDERED FPACP SEE C18 [Moles/Vol] Test ordered in erro r based on source collected. Appropriate test code has been ordered. NINF - 0.17 umol/L [facility] Comment on above: PER SAMPLE RECVD REO RDERED FPACP SEE C18-OH [Moles/Vol] Test ordered in erro r based on source collected. Appropriate test code has been ordered. NINF - 0.07 umol/L [facility] Comment on above: PER SAMPLE RECVD REO RDERED FPACP SEE C18:1 [Moles/Vol] Test ordered in erro r based on source collected. Appropriate test code has been ordered. NINF - 0.43 umol/L [facility] Comment on above: PER SAMPLE RECVD REO RDERED FPACP SEE C18:1-OH [Moles/Vol] Test ordered in err or based on source collected. Appropriate test code has been ordered. NINF - 0.10 umol/L [facility] Comment on above: PER SAMPLE RECVD REO RDERED FPACP SEE C18:2 [Moles/Vol] Test ordered in erro r based on source collected. Appropriate test code has been ordered. NINF - 0.26 umol/L [facility] Comment on above: PER SAMPLE RECVD REO RDERED FPACP SEE C18:2-OH [Moles/Vol] Test ordered in err or based on source collected. Appropriate test code has been ordered. NINF - 0.11 umol/L [facility] Comment on above: PER SAMPLE RECVD REO RDERED FPACP SEE C2 [Moles/Vol] Test ordered in erro r based on source collected. Appropriate test code has been ordered. 2.84 - 25.30 umol/L [facility] Comment on above: PER SAMPLE RECVD REO RDERED FPACP SEE C3 [Moles/Vol] Test ordered in erro r based on source collected. Appropriate test code has been ordered. NINF - 1.00 umol/L [facility] Comment on above: PER SAMPLE RECVD REO RDERED FPACP SEE C3-DC [Moles/Vol] Test ordered in erro r based on source collected. Appropriate test code has been ordered. NINF - 0.14 umol/L [facility] Comment on above: PER SAMPLE RECVD REO RDERED FPACP SEE C4-DC [Moles/Vol] Test ordered in erro r based on source collected. Appropriate test code has been ordered. NINF - 0.25 umol/L [facility] Comment on above: PER SAMPLE RECVD REO RDERED FPACP SEE C4-OH [Moles/Vol] Test ordered in erro r based on source collected. Appropriate test code has been ordered. NINF - 0.40 umol/L [facility] Comment on above: PER SAMPLE RECVD REO RDERED FPACP SEE C5-DC [Moles/Vol] Test ordered in erro r based on source collected. Appropriate test code has been ordered. NINF - 0.18 umol/L [facility] Comment on above: PER SAMPLE RECVD REO RDERED FPACP SEE C6 [Moles/Vol] Test ordered in erro r based on source collected. Appropriate test code has been ordered. NINF - 0.42 umol/L [facility] Comment on above: PER SAMPLE RECVD REO RDERED FPACP SEE C6-OH [Moles/Vol] Test ordered in erro r based on source collected. Appropriate test code has been ordered. NINF - 0.20 umol/L [facility] Comment on above: PER SAMPLE RECVD REO RDERED FPACP SEE C8 [Moles/Vol] Test ordered in erro r based on source collected. Appropriate test code has been ordered. NINF - 1.00 umol/L [facility] Comment on above: PER SAMPLE RECVD REO RDERED FPACP SEE C8-DC [Moles/Vol] Test ordered in erro r based on source collected. Appropriate test code has been ordered. NINF - 0.10 umol/L [facility] Comment on above: PER SAMPLE RECVD REO RDERED FPACP SEE C8:1 [Moles/Vol] Test ordered in erro r based on source collected. Appropriate test code has been ordered. NINF - 0.97 umol/L [facility] Comment on above: PER SAMPLE RECVD REO RDERED FPACP SEE Carnitine [Moles/Vol] Test ordered in er ror based on source collected. Appropriate test code has been ordered. 27 - 66 umol/L [facility] Comment on above: PER SAMPLE RECVD REO RDERED FPACP SEE Isobutyrylcarnitine (C4) [Moles/Vol] Test ordered in error based on source collected. Appropriate test code has been ordered. NINF - 1.01 umol/L [facility] Comment on above: PER SAMPLE RECVD REO RDERED FPACP SEE Isovalerylcarnitine+Met hylbutyrylcarnitine (C5) [Moles/Vol] Test ordered in error based on source collected. Appropriate test code has been ordered. NINF - 0.65 umol/L [facility] Comment on above: PER SAMPLE RECVD REO RDERED FPACP SEE Service comment 02 (Unsp spec) [Interp] Test ordered in error based on source collected. Appropriate test code has been ordered. [facility] Comment on above: PER SAMPLE RECVD REO RDERED FPACP SEE CORRECTED on 02/14 AT 0956: Result was previously reported as: This test was developed and its performance characteristics determined by [facility]. It has not been cleared or approved by the FDA. The laboratory is regulated under CLIA as qualified to perform high complexity testing. This test is used for clinical purposes. It should not be regarded as investigational or for research. Tiglylcarnitine (C5:1) [Moles/Vol] Test ordered in error based on source collected. Appropriate test code has been ordered. NINF - 0.15 umol/L [facility] Comment on above: PER SAMPLE RECVD REThong RDERED FPACP SEE [facility] Albumin Elph [Mass/Vol]Order ed By: Dr. Dozier on 02-07-2023 Albumin [Mass/Vol] 3.7 g/dL 2.9-4.4 [facility] Basophil percentageOrdered B y: Dr. Dozier on 02-07-2023 Basophil percentage Comment . [facility] Comment on above: Bence Davila Protein positive; kappa type.Performed at: [facility] [id number] Director: Myron Kennedy PhD, Phone: [phone] Chloride [Moles/Vol] 103 mmol/L 98-107 [facility] Glucose [Mass/Vol] 107 mg/dL 74-106 [facility] Comment on above: Fasting Glucose resu lt from 100 to 125 mg/dL suggests IMPAIRED HOMEOSTASIS per A.D.A. criteria. Potassium [Moles/Vol] 5.1 mmol/L 3.5-5.1 [facility] Sodium [Moles/Vol] 134 mmol/L 136-145 [facility] Interpretation of serum or p lasma protein pattern by immunofixation (narrative resultOrdered By: Dr. Dozier on 02-07-2023 Protein Fractions Immunofixation Jamison [Interp] See comment [facility] [place] Comment on above: Result: Not Observed Laboratory - Chemistry and C hemistry - challengeOrdered By: Dr. Dozier on 02-07-2023 CO2 [Moles/Vol] 26.0 mmol/L 21.0-32.0 [facility] [place] Urea nitrogen/Creatinine [Mass ratio] 14.0 mg/mg 10-20 [facility] No Panel InformationOrdered By: Dr. Dozier on 02-07-2023 Addendum Document Comment . [facility] Comment on above: Protein electrophore sis scan will follow via computer,mail, or coat operator insulator delivery. Estimated GFR (MDRD) Amer 37 mL/min >60 [facility] [place] Comment on above: GFR Calc Estimated GFR (MDRD) Non-Af Amer 30 mL/min >60 [facility] [place] Comment on above: Non- GFR Calc Free Lambda Light Chains, Quant 46.9 mg/L 5.7-26.3 [facility] [place] Serum irvir-1-nrulvhdr measu rement by electrophoresisOrdered By: Dr. Dozier on 02-07-2023 Alpha 1 globulin Elph [Mass/Vol] 0.3 g/dL 0.0-0.4 [facility] [place] Alpha 1 globulin Elph [Mass/Vol] 1.1 g/dL 0.4-1.0 [facility] Serum globulin measurement ( mass/volume)Ordered By: Dr. Dozier on 02-07-2023 Globulin (S) [Mass/Vol] 4.2 g/dL 2.2-3.9 [facility] Serum immunoglobulin kappa l ight chains/immunoglobulin lambda light chains mass ratioOrdered By: Dr. Dozier on 02-07-2023 Immunoglobulin light chains.kappa/Immunoglob ulin light chains.lambda (S) [Mass ratio] 1.34 0.26-1.65 [facility] [place] Serum or plasma IgA measurem ent (mass/volume)Ordered By: Dr. Dozier on 02-07-2023 IgA [Mass/Vol] 119 mg/dL 87-352 [facility] [place] Serum or plasma IgG measurem ent (mass/volume)Ordered By: Dr. Dozier on 02-07-2023 IgG [Mass/Vol] 1604 mg/dL [phone] [facility] [place] Serum or plasma IgM measurem ent (mass/volume)Ordered By: Dr. Dozier on 02-07-2023 IgM [Mass/Vol] 58 mg/dL 26-217 [facility] [place] Serum or plasma beta globuli n measurement by electrophoresis (mass/volume)Ordered By: Dr. Dozier on 02-07-2023 Beta globulin Elph [Mass/Vol] 1.2 g/dL 0.7-1.3 [facility] [place] Serum or plasma calcitriol m easurement (mass/volume)Ordered By: Dr. Dozier on 02-07-2023 1,25-dihydroxyvitamin D3 [Mass/Vol] 17.1 pg/mL 24.8-81.5 [facility] [place] Comment on above: Performed at: [facility] [address] [id number] Director: Braulio Rubio MD, Phone: [phone] Serum or plasma calcium marivel urement (mass/volume)Ordered By: Dr. Dozier on 02-07-2023 Calcium [Mass/Vol] 9.5 mg/dL 8.5-10.1 [facility] Serum or plasma creatinine m easurement (mass/volume)Ordered By: Dr. Dozier on 02-07-2023 Creatinine [Mass/Vol] 1.78 mg/dL 0.55-1.02 [facility] Comment on above: The validity of the calculated GFR & GFRAA in patients over 70 years has not been determined. Clinical correlation is essential. Serum or plasma gamma globul in measurement by electrophoresis (mass/volume)Ordered By: Dr. Dozier on 02-07-2023 Gamma globulin Elph [Mass/Vol] 1.6 g/dL 0.4-1.8 [facility] [place] Serum or plasma immunoelectr ophoresis interpretation (nominal result)Ordered By: Dr. Dozier on 02-07-2023 Interpretation IEP [Interp] Comment . [facility] [place] Comment on above: No monoclonality det ected. Serum or plasma immunoglobul in kappa light chains measurement (mass/volume)Ordered By: Dr. Dozier on 02-07-2023 Immunoglobulin light chains.kappa [Mass/Vol] 62.9 mg/L 3.3-19.4 [facility] Serum or plasma urea nitroge n measurement (mass/volume)Ordered By: Dr. Dozier on 02-07-2023 Urea nitrogen [Mass/Vol] 25 mg/dL 7-18 [facility] [place] Thin prep Papanicolaou smear with manual screeningOrdered By: Dr. Dozier on 02-07-2023 Thin prep Papanicolaou smear with manual screening 5 5-15 [facility] [place] Thin prep Papanicolaou smear with manual screening 0.9 0.7-1.7 [facility] Total protein bloodOrdered B y: Dr. Dozier on 02-07-2023 Protein [Mass/Vol] 7.9 g/dL 6.0-8.5 [facility] Basophil percentageOrdered B y: Dr. Dozier on 12-07-2022 Basophil percentage Comment: . [facility] Comment on above: Presence of monoclon al protein is unclear at this time. Suggestrepeat in 3 to 6 months if clinically indicated.Performed at: [facility] [id number] Director: Myron Kennedy PhD, Phone: [phone] Basophil percentageon 2022 Basophil percentage 3.6 mg/dL 2.5-4.9 [facility] Chloride [Moles/Vol] 97 mmol/L 98-107 [facility] Glucose [Mass/Vol] 120 mg/dL 74-106 [facility] Comment on above: Fasting Glucose resu lt from 100 to 125 mg/dL suggests IMPAIRED HOMEOSTASIS per A.D.A. criteria. Potassium [Moles/Vol] 4.6 mmol/L 3.5-5.1 [facility] Sodium [Moles/Vol] 134 mmol/L 136-145 [facility] Bilirubin Test strip Ql (U)o n 12-07-2022 Bilirubin Ql (U) Negative Negative [facility] Ketones Test strip Ql (U)on 12-07-2022 Ketones Ql (U) Negative Negative [facility] Laboratory - Chemistry and C hemistry - challengeon 12-07-2022 CO2 [Moles/Vol] 28.0 mmol/L 21.0-32.0 [facility] Urea nitrogen/Creatinine [Mass ratio] 12.2 mg/mg 10-20 [facility] Nitrite Test strip Ql (U)on 12-07-2022 Nitrite Ql (U) Negative Negative [facility] No Panel Informationon 12-07 Estimated GFR (MDRD) Amer 46 mL/min >60 [facility] Comment on above: GFR Calc Estimated GFR (MDRD) Non-Af Amer 38 mL/min >60 [facility] Comment on above: Non- GFR Calc Protein Test strip Ql (U)on 12-07-2022 Protein Ql (U) 15 mg/dl Negative [facility] Serum or plasma albumin marivel urement (mass/volume)on 12-07-2022 Albumin [Mass/Vol] 3.3 g/dL 3.2-5.0 [facility] Serum or plasma calcium marivel urement (mass/volume)on 12-07-2022 Calcium [Mass/Vol] 9.4 mg/dL 8.5-10.1 [facility] Serum or plasma creatinine m easurement (mass/volume)on 12-07-2022 Creatinine [Mass/Vol] 1.48 mg/dL 0.55-1.02 [facility] Comment on above: The validity of the calculated GFR & GFRAA in patients over 70 years has not been determined. Clinical correlation is essential. Serum or plasma urea nitroge n measurement (mass/volume)on 12-07-2022 Urea nitrogen [Mass/Vol] 18 mg/dL 7-18 [facility] Urine blood detectionon RBC Ql (U) Negative Negative [facility] Urine clarityon 12-07-2022 Clarity (U) Clear Clear [facility] Urine color determinationon 12-07-2022 Color (U) Yellow Yellow [facility] Urine creatinine measurement (mass/volume)on 12-07-2022 Creatinine (U) [Mass/Vol] 43.10 mg/dL NO RANGE EST. [facility] Urine glucose detectionon Glucose Ql (U) Normal mg/dl Normal [facility] Urine leukocyte esterase det ection by dipstickon 12-07-2022 Leukocyte esterase Test strip Ql (U) Negative Negative [facility] Urine pHon 12-07-2022 pH (U) 7.0 [pH] 5.0 - 8.0 [facility] Urine protein measurement (m ass/volume)on 12-07-2022 Protein (U) [Mass/Vol] 13.8 mg/dL 0.0-11.8 [facility] Urine protein/creatinine mas s ratioon 12-07-2022 Protein/Creatinine (U) [Mass ratio] 320 mg/g CRE 0-200 [facility] Urine specific gravity measu rementon 12-07-2022 Specific gravity (U) [Rel density] 1.010 1.002-1.030 [facility] Urobilinogen Auto test strip Ql (U)on 12-07-2022 Urobilinogen Ql (U) Normal mg/dl Normal [facility] Albumin Elph [Mass/Vol]Order ed By: Dr. Dozier on 12-01-2022 Albumin [Mass/Vol] 3.5 g/dL 2.9-4.4 [facility] Basophil percentageOrdered B y: Dr. Dozier on 12-01-2022 Chloride [Moles/Vol] 89 mmol/L 98-107 [facility] Glucose [Mass/Vol] 109 mg/dL 74-106 [facility] Comment on above: Fasting Glucose resu lt from 100 to 125 mg/dL suggests IMPAIRED HOMEOSTASIS per A.D.A. criteria. Potassium [Moles/Vol] 3.5 mmol/L 3.5-5.1 [facility] Sodium [Moles/Vol] 125 mmol/L 136-145 [facility] Interpretation of serum or p lasma protein pattern by immunofixation (narrative resultOrdered By: Dr. Dozier on 12-01-2022 Protein Fractions Immunofixation Jamison [Interp] See comment [facility] Comment on above: NOT OBSERVED Iron measurement (mass/mass) Ordered By: Dr. Dozier on 12-01-2022 Iron (Unsp spec) [Mass/Mass] 19 ug/dL 50-170 [facility] [place] Laboratory - Chemistry and C hemistry - challengeOrdered By: Dr. Dozier on 12-01-2022 CO2 [Moles/Vol] 22.0 mmol/L 21.0-32.0 [facility] [place] Urea nitrogen/Creatinine [Mass ratio] 13.1 mg/mg 10-20 [facility] [place] No Panel InformationOrdered By: Dr. Dozier on 12-01-2022 Addendum Document Comment . [facility] [place] Comment on above: Protein electrophore sis scan will follow via computer,mail, or coat operator insulator delivery.Performed at: [facility] [id number] Director: Myron Kennedy PhD, Phone: [phone] Estimated GFR (MDRD) Amer 25 mL/min >60 [facility] [place] Comment on above: GFR Calc Estimated GFR (MDRD) Non-Af Amer 21 mL/min >60 [facility] [place] Comment on above: Non- GFR Calc Serum [id number] measu rement by electrophoresisOrdered By: Dr. Dozier on 12-01-2022 Alpha 1 globulin Elph [Mass/Vol] 0.3 g/dL 0.0-0.4 [facility] [place] Alpha 1 globulin Elph [Mass/Vol] 1.1 g/dL 0.4-1.0 [facility] [place] Serum globulin measurement ( mass/volume)Ordered By: Dr. Dozier on 12-01-2022 Globulin (S) [Mass/Vol] 3.5 g/dL 2.2-3.9 [facility] Serum or plasma IgA measurem ent (mass/volume)Ordered By: Dr. Dozier on 12-01-2022 IgA [Mass/Vol] 107 mg/dL 87-352 [facility] [place] Serum or plasma IgG measurem ent (mass/volume)Ordered By: Dr. Dozier on 12-01-2022 IgG [Mass/Vol] 1343 mg/dL 586-1602 [facility] [place] Serum or plasma IgM measurem ent (mass/volume)Ordered By: Dr. Dozier on 12-01-2022 IgM [Mass/Vol] 42 mg/dL 26-217 [facility] [place] Serum or plasma beta globuli n measurement by electrophoresis (mass/volume)Ordered By: Dr. Dozier on 12-01-2022 Beta globulin Elph [Mass/Vol] 1.0 g/dL 0.7-1.3 [facility] [place] Serum or plasma calcitriol m easurement (mass/volume)Ordered By: Dr. Dozier on 12-01-2022 1,25-dihydroxyvitamin D3 [Mass/Vol] 32.2 pg/mL 24.8-81.5 [facility] [place] Comment on above: Performed at: - [address] [id number] Director: Braulio Rubio MD, Phone: [phone] Serum or plasma calcium marivel urement (mass/volume)Ordered By: Dr. Dozier on 12-01-2022 Calcium [Mass/Vol] 8.9 mg/dL 8.5-10.1 [facility] Serum or plasma creatinine m easurement (mass/volume)Ordered By: Dr. Dozier on 12-01-2022 Creatinine [Mass/Vol] 2.51 mg/dL 0.55-1.02 [facility] Comment on above: The validity of the calculated GFR & GFRAA in patients over 70 years has not been determined. Clinical correlation is essential. Serum or plasma ferritin josé miguel surement (mass/volume)Ordered By: Dr. Dozier on 12-01-2022 Ferritin [Mass/Vol] 70 ng/mL 8-252 [facility] Serum or plasma gamma globul in measurement by electrophoresis (mass/volume)Ordered By: Dr. Dozier on 12-01-2022 Gamma globulin Elph [Mass/Vol] 1.2 g/dL 0.4-1.8 [facility] [place] Serum or plasma immunoelectr ophoresis interpretation (nominal result)Ordered By: Dr. Dozier on 12-01-2022 Interpretation IEP [Interp] Comment: . [facility] [place] Comment on above: Presence of monoclon al protein is unclear at this time. Suggestrepeat in 3 to 6 months if clinically indicated. Serum or plasma urea nitroge n measurement (mass/volume)Ordered By: Dr. Dozier on 12-01-2022 Urea nitrogen [Mass/Vol] 33 mg/dL 7-18 [facility] [place] Thin prep Papanicolaou smear with manual screeningOrdered By: Dr. Dozier on 12-01-2022 Thin prep Papanicolaou smear with manual screening 14 5-15 [facility] [place] Thin prep Papanicolaou smear with manual screening 1.1 0.7-1.7 [facility] [place] Total protein bloodOrdered B y: Dr. Dozier on 12-01-2022 Protein [Mass/Vol] 7.0 g/dL 6.0-8.5 [facility] Absolute lymphocyte countOrd ered By: Dr. Dozier on 10-06-2022 Lymphocytes Auto (Unsp spec) [#/Vol] 2.62 10*3/uL 0.83-4.51 [facility] [place] Basophil percentageOrdered B y: Dr. Dozier on 10-06-2022 Basophils/100 WBC (Bld) 0.9 % 0-1 [facility] Bilirubin [Mass/Vol] 0.20 mg/dL 0.20-1.00 [facility] Comment on above: For patients on eltr ombopag therapy, use of Dimension Voca TBIL is not recommended. Chloride [Moles/Vol] 101 mmol/L 98-107 [facility] Eosinophils/100 WBC (Bld) 2.2 % 0-5 [facility] [place] Glucose [Mass/Vol] 96 mg/dL 74-106 [facility] Neutrophils (Bld) [#/Vol] 7.5 10*3/uL 2.0-7.7 [facility] [place] Neutrophils/100 WBC (Bld) 66.2 % 47-70 [facility] [place] Potassium [Moles/Vol] 5.4 mmol/L 3.5-5.1 [facility] Protein [Mass/Vol] 8.2 g/dL 6.4-8.2 [facility] Sodium [Moles/Vol] 135 mmol/L 136-145 [facility] WBC (Bld) [#/Vol] 11.3 10*3/uL 4.4-11.0 [facility] Blood erythrocytes count (nu mber/volume)Ordered By: Dr. Dozier on 10-06-2022 RBC (Bld) [#/Vol] 4.86 10*6/uL 4.2-5.4 [facility] Blood hemoglobin measurement (mass/volume)Ordered By: Dr. Dozier on 10-06-2022 Hemoglobin (Bld) [Mass/Vol] 11.5 g/dL 12.0-15.0 [facility] [place] Blood lymphocytes/100 leukoc ytesOrdered By: Dr. Dozier on 10-06-2022 Lymphocytes/100 WBC (Bld) 23.2 % 19-41 [facility] [place] Blood monocytes/100 leukocyt esOrdered By: Dr. Dozier on 10-06-2022 Monocytes/100 WBC (Bld) 7.3 % 0-10 [facility] Blood platelet mean volumeOr dered By: Dr. Dozier on 10-06-2022 Platelet mean volume (Bld) [Entitic vol] 10.6 fL 6.2-12.0 [facility] [place] Determination of erythrocyte mean corpuscular volume (MCV)Ordered By: Dr. Dozier on 10-06-2022 MCV (RBC) [Entitic vol] 79.8 fL 81-99 [facility] Hematocrit Auto (Bld) [Volum e fraction]Ordered By: Dr. Dozier on 10-06-2022 Hematocrit (Bld) [Volume fraction] 38.8 % 37-47 [facility] [place] Laboratory - Chemistry and C hemistry - challengeOrdered By: Dr. Dozier on 10-06-2022 ALP [Catalytic activity/Vol] 84 U/L 45-117 [facility] [place] ALT [Catalytic activity/Vol] 25 U/L 13-56 [facility] [place] CO2 [Moles/Vol] 25.0 mmol/L 21.0-32.0 [facility] [place] Globulin (S) [Mass/Vol] 4.3 g/dL 2.2-4.2 [facility] Urea nitrogen/Creatinine [Mass ratio] 11.6 mg/mg 10-20 [facility] [place] Laboratory - Hematology and Cell countsOrdered By: Dr. Dozier on 10-06-2022 Erythrocyte distribution width (RBC) [Entitic vol] 48.3 fL 35.1-43.9 [facility] [place] Erythrocyte distribution width (RBC) [Ratio] 16.7 % 11.6-14.6 [facility] [place] Immature granulocytes/100 WBC (Bld) 0.200 % 0.0-0.9 [facility] [place] Comment on above: IG% - Immature Granu locytes (promyelocytes, myelocytes and metamyelocytes) > 1% indicates that a LEFT SHIFT is Present. MCH (RBC) [Entitic mass] 23.7 pg 27.0-32.0 [facility] [place] Nucleated RBC/100 WBC (Bld) [Ratio] 0 % 0-5 [facility] [place] MCHC Auto (RBC) [Mass/Vol]Or dered By: Dr. Dozier on 10-06-2022 MCHC (RBC) [Mass/Vol] 29.6 g/dL 32-36 [facility] No Panel InformationOrdered By: Dr. Dozier on 10-06-2022 Estimated GFR (MDRD) Amer 34 mL/min >60 [facility] [place] Comment on above: GFR Calc Estimated GFR (MDRD) Non-Af Amer 28 mL/min >60 [facility] [place] Comment on above: Non- GFR Calc Free Lambda Light Chains, Quant 41.7 mg/L 5.7-26.3 [facility] [place] Thyroid Stimulating Hormone (TSH) 0.42 uIU/mL 0.358-3.74 [facility] [place] Vitamin B12 Level > 2000 pg/mL 211-911 [facility] Whole Blood Vitamin B1 Level 146.3 nmol/L 66.5-200.0 [facility] [place] Comment on above: Performed at: [address] [id number] Director: Myron Kennedy PhD, Phone: [phone] at: - [facility] [id number] Director: Braulio Rubio MD, Phone: [phone] Platelets bldOrdered By: Dr. Dozier on 10-06-2022 Platelets (Bld) [#/Vol] 513 10*3/uL 150-450 [facility] [place] Serum immunoglobulin kappa l ight chains/immunoglobulin lambda light chains mass ratioOrdered By: Dr. Dozier on 10-06-2022 Immunoglobulin light chains.kappa/Immunoglob ulin light chains.lambda (S) [Mass ratio] 1.34 0.26-1.65 [facility] [place] Serum or plasma albumin marivel urement (mass/volume)Ordered By: Dr. Dozier on 10-06-2022 Albumin [Mass/Vol] 3.9 g/dL 3.2-5.0 [facility] Serum or plasma albumin/glob ulin mass ratioOrdered By: Dr. Dozier on 10-06-2022 Albumin/Globulin [Mass ratio] 0.9 {ratio} 0.9-2.4 [facility] [place] Serum or plasma calcium marivel urement (mass/volume)Ordered By: Dr. Dozier on 10-06-2022 Calcium [Mass/Vol] 9.4 mg/dL 8.5-10.1 [facility] Serum or plasma creatinine m easurement (mass/volume)Ordered By: Dr. Dozier on 10-06-2022 Creatinine [Mass/Vol] 1.90 mg/dL 0.55-1.02 [facility] Comment on above: The validity of the calculated GFR & GFRAA in patients over 70 years has not been determined. Clinical correlation is essential. Serum or plasma folate measu rement (mass/volume)Ordered By: Dr. Dozier on 10-06-2022 Folate [Mass/Vol] 6.60 ng/mL 3.1-55.4 [facility] [place] Serum or plasma immunoglobul in kappa light chains measurement (mass/volume)Ordered By: Dr. Dozier on 10-06-2022 Immunoglobulin light chains.kappa [Mass/Vol] 55.8 mg/L 3.3-19.4 [facility] [place] Serum or plasma urea nitroge n measurement (mass/volume)Ordered By: Dr. Dozier on 10-06-2022 Urea nitrogen [Mass/Vol] 22 mg/dL 7-18 [facility] [place] Thin prep Papanicolaou smear with manual screeningOrdered By: Dr. Dozier on 10-06-2022 Thin prep Papanicolaou smear with manual screening 16 U/L 15-37 [facility] [place] Thin prep Papanicolaou smear with manual screening 9 5-15 [facility] [place] Comprehensive metabolic 2000 panelon 07-08-2022 Albumin [Mass/Vol] 3.8 g/dL 3.2 - 5.2 g/dL [facility] ALP [Catalytic activity/Vol] 108 U/L 40 - 150 U/L [facility] ALT [Catalytic activity/Vol] 34 U/L 14 - 65 U/L [facility] Anion gap [Moles/Vol] 13 mmol/L 10 - 2 0 mmol/L [facility] AST [Catalytic activity/Vol] 28 U/L 0 - 45 U/L [facility] Bilirubin [Mass/Vol] 0.2 mg/dL 0 - 1.3 mg/dL [facility] Calcium [Mass/Vol] 8.7 mg/dL 8.4 - 10. 2 mg/dL [facility] Chloride [Moles/Vol] 99 mmol/L 98 - 10 8 mmol/L [facility] Creatinine [Mass/Vol] 1.93 mg/dL High 0.60 - 1.20 mg/dL [facility] GFR/1.73 sq M.predicted CKD-EPI (S/P/Bld) [Vol rate/Area] 29 Low - PINF [facility] Comment on above: Estimated GFR was ca lculated using the 2020 CKD-EPI creatinine equation. Glucose [Mass/Vol] 110 mg/dL High 65 - 99 mg/dL [facility] HCO3 [Moles/Vol] 27 mmol/L 21 - 32 mmol/L [facility] Potassium [Moles/Vol] 5.2 mmol/L High 3.5 - 5.1 mmol/L [facility] Protein [Mass/Vol] 7.8 g/dL 6 - 8 g/dL [facility] Sodium [Moles/Vol] 134 mmol/L Low 135 - 145 mmol/L [facility] Urea nitrogen [Mass/Vol] 27 mg/dL High 8 - 25 mg/dL [facility] Urea nitrogen/Creatinine [Mass ratio] 14.0 mg/mg 10 - [facility] has implemented the eGFR calculation approach that does not have a coefficient for race that conforms to the NKF-ASN Task Force Recommendations. [facility] NT Pro BNPon 07-08-2022 Natriuretic peptide.B prohormone N-Terminal [Mass/Vol] 369 pg/mL High 0 - 300 pg/mL [facility] Natriuretic peptide.B prohor curly N-Terminal [Mass/Vol]on 07-08-2022 Pride Study Cut-offs Rule In: < /= 50 Years >450 pg/mL 51 Years - 75 Years >900 pg/mL 76 Years - 99 Years >1800 pg/mL Rule Out: All patients <300 pg/mL [facility] No Panel Informationon 07-08 Interpretation and review of laboratory results Abnormal [facility] CBC Auto Differentialon 06-07 Basophils (Bld) [#/Vol] 0.09 10*3/uL [facility] Basophils/100 WBC (Bld) 0.8 % [facility] Eosinophils (Bld) [#/Vol] 0.46 10*3/uL [facility] Eosinophils/100 WBC (Bld) 4.1 % [facility] Erythrocyte distribution width (RBC) [Entitic vol] 16.0 % High 11.6 - 14.8 % [facility] Hematocrit (Bld) [Volume fraction] 31.2 % Low 36 - 46 % [facility] Hemoglobin (Bld) [Mass/Vol] 9.1 g/dL Low 12 - 16 g/dL [facility] Immature granulocytes (Bld) [#/Vol] 0.24 10*3/uL [facility] Immature granulocytes/100 WBC (Bld) 2.10 % [facility] Comment on above: The IG parameter is the percentage of metamyelocytes, myelocytes and promyelocytes. An immature granulocyte count (IG) of 1% or more suggests the possibility of infection, an IG count of 3% is very likely related to an infection. Interpretation and review of laboratory results Abnormal [facility] Lymphocytes (Bld) [#/Vol] 2.12 10*3/uL [facility] Lymphocytes/100 WBC (Bld) 18.8 % [facility] MCH (RBC) [Entitic mass] 24.3 pg Low 26 - 34 pg [facility] MCHC (RBC) [Mass/Vol] 29.2 g/dL Low 31 - 37 g/dL [facility] MCV (RBC) [Entitic vol] 83.2 fL 80 - 100 fL [facility] Monocytes (Bld) [#/Vol] 1.08 10*3/uL High [facility] Monocytes/100 WBC (Bld) 9.6 % [facility] Neutrophils (Bld) [#/Vol] 7.26 10*3/uL [facility] Neutrophils/100 WBC (Bld) 64.6 % [facility] Nucleated RBC (Bld) [#/Vol] 0.00 10*3/uL [facility] Nucleated RBC/100 WBC (Bld) [Ratio] 0.0 % [facility] Platelet mean volume (Bld) [Entitic vol] 9.9 fL 9.4 - 12.4 fL [facility] Platelets (Bld) [#/Vol] 423 10*3/uL High [facility] RBC (Bld) [#/Vol] 3.75 10*6/uL Low [facility] WBC (Bld) [#/Vol] 11.25 10*3/uL High [facility] CK [Catalytic activity/Vol]o n 06-29-2022 Interpretation and review of laboratory results Abnormal [facility] CPK NO MBon 06-29-2022 CK [Catalytic activity/Vol] 698 U/L High 40 - 170 U/L [facility] Glucose (Bld) [Mass/Vol]on 0 06-29-2022 Glucose [Mass/Vol] 94 mg/dL 65 - 99 mg/dL [facility] Interpretation and review of laboratory results Normal [facility] Magnesium Levelon 06-29-2022 Magnesium [Mass/Vol] 1.8 mg/dL 1.6 - 2 .4 mg/dL [facility] Magnesium [Mass/Vol]on 06-29 Interpretation and review of laboratory results Normal [facility] Renal function 2000 panelon 06-29-2022 Albumin [Mass/Vol] 2.9 g/dL Low 3.2 - 5.2 g/dL [facility] Anion gap [Moles/Vol] 13 mmol/L 10 - 2 0 mmol/L [facility] Calcium [Mass/Vol] 8.0 mg/dL Low 8.4 - 10. 2 mg/dL [facility] Chloride [Moles/Vol] 106 mmol/L 98 - 10 8 mmol/L [facility] Creatinine [Mass/Vol] 1.85 mg/dL High 0.60 - 1.20 mg/dL [facility] GFR/1.73 sq M.predicted CKD-EPI (S/P/Bld) [Vol rate/Area] 30 Low - PINF [facility] Comment on above: Estimated GFR was ca lculated using the 2020 CKD-EPI creatinine equation. Glucose [Mass/Vol] 91 mg/dL 65 - 99 mg/dL [facility] HCO3 [Moles/Vol] 25 mmol/L 21 - 32 mmol/L [facility] Interpretation and review of laboratory results Abnormal [facility] Phosphate [Mass/Vol] 5.4 mg/dL High 2.8 - 4 .1 mg/dL [facility] Potassium [Moles/Vol] 5.1 mmol/L 3.5 - 5.1 mmol/L [facility] Sodium [Moles/Vol] 139 mmol/L 135 - 145 mmol/L [facility] Urea nitrogen [Mass/Vol] 26 mg/dL High 8 - 25 mg/dL [facility] Urea nitrogen/Creatinine [Mass ratio] 14.1 mg/mg 10 - 20 [facility] has implemented the eGFR calculation approach that does not have a coefficient for race that conforms to the NKF-ASN Task Force Recommendations. [facility] CBC Auto Differentialon 06-07 Basophils (Bld) [#/Vol] 0.06 10*3/uL [facility] Basophils/100 WBC (Bld) 0.5 % [facility] Eosinophils (Bld) [#/Vol] 0.09 10*3/uL [facility] Eosinophils/100 WBC (Bld) 0.8 % [facility] Erythrocyte distribution width (RBC) [Entitic vol] 15.9 % High 11.6 - 14.8 % [facility] Hematocrit (Bld) [Volume fraction] 29.0 % Low 36 - 46 % [facility] Hemoglobin (Bld) [Mass/Vol] 8.9 g/dL Low 12 - 16 g/dL [facility] Immature granulocytes (Bld) [#/Vol] 0.31 10*3/uL High [facility] Immature granulocytes/100 WBC (Bld) 2.60 % [facility] Comment on above: The IG parameter is the percentage of metamyelocytes, myelocytes and promyelocytes. An immature granulocyte count (IG) of 1% or more suggests the possibility of infection, an IG count of 3% is very likely related to an infection. Interpretation and review of laboratory results Abnormal [facility] Lymphocytes (Bld) [#/Vol] 1.98 10*3/uL [facility] Lymphocytes/100 WBC (Bld) 16.8 % [facility] MCH (RBC) [Entitic mass] 24.5 pg Low 26 - 34 pg [facility] MCHC (RBC) [Mass/Vol] 30.7 g/dL Low 31 - 37 g/dL [facility] MCV (RBC) [Entitic vol] 79.9 fL Low 80 - 100 fL [facility] Monocytes (Bld) [#/Vol] 0.99 10*3/uL High [facility] Monocytes/100 WBC (Bld) 8.4 % [facility] Neut[facility]ils (Bld) [#/Vol] 8.39 10*3/uL High [facility] Neutrophils/100 WBC (Bld) 70.9 % [facility] Nucleated RBC (Bld) [#/Vol] 0.00 10*3/uL [facility] Nucleated RBC/100 WBC (Bld) [Ratio] 0.0 % [facility] Platelet mean volume (Bld) [Entitic vol] 9.3 fL Low 9.4 - 12.4 fL [facility] Platelets (Bld) [#/Vol] 406 10*3/uL High [facility] RBC (Bld) [#/Vol] 3.63 10*6/uL Low [facility]alth WBC (Bld) [#/Vol] 11.82 10*3/uL High [facility] CK [Catalytic activity/Vol]o n 06-28-2022 Interpretation and review of laboratory results Abnormal [facility] CPK NO MBon 06-28-2022 CK [Catalytic activity/Vol] 1164 U/L High 40 - 170 U/L [facility] Glucose (Bld) [Mass/Vol]on 0 06-28-2022 Glucose [Mass/Vol] 118 mg/dL High 65 - 99 mg/dL [facility] Interpretation and review of laboratory results Abnormal [facility] Glucose [Mass/Vol] 99 mg/dL 65 - 99 mg/dL [facility] Interpretation and review of laboratory results Normal [facility] Glucose [Mass/Vol] 82 mg/dL 65 - 99 mg/dL [facility] Interpretation and review of laboratory results Normal [facility] Glucose [Mass/Vol] 83 mg/dL 65 - 99 mg/dL [facility] Interpretation and review of laboratory results Normal [facility] Hepatic function 2000 panelo n 06-28-2022 Albumin [Mass/Vol] 2.8 g/dL Low 3.2 - 5.2 g/dL [facility] ALP [Catalytic activity/Vol] 82 U/L 40 - 150 U/L [facility] ALT [Catalytic activity/Vol] 97 U/L High 14 - 65 U/L [facility] AST [Catalytic activity/Vol] 64 U/L High 0 - 45 U/L [facility] Bilirubin [Mass/Vol] 0.2 mg/dL 0 - 1.3 mg/dL [facility] Bilirubin.conjugated [Mass/Vol] mg/dL 0 - 0.4 mg/dL [facility] Interpretation and review of laboratory results Abnormal [facility] Protein [Mass/Vol] 6.1 g/dL 6 - 8 g/dL [facility] Iron Study with Ferritinon 0 06-28-2022 Ferritin [Mass/Vol] 46 ng/mL 13 - 150 ng/mL [facility] Interpretation and review of laboratory results Abnormal [facility] Iron [Mass/Vol] 40 ug/dL [facility] h Iron binding capacity [Mass/Vol] 255 [facility] Iron saturation [Mass fraction] 16 % Low 20 - 50 % [facility] Lipaseon 06-28-2022 Lipase [Catalytic activity/Vol] 228 U/L 73 - 393 U/L [facility] Lipase [Catalytic activity/V ol]on 06-28-2022 Interpretation and review of laboratory results Normal [facility] Magnesium Levelon 06-28-2022 Magnesium [Mass/Vol] 1.4 mg/dL Low 1.6 - 2 .4 mg/dL [facility] Magnesium [Mass/Vol]on 06-28 Interpretation and review of laboratory results Abnormal [facility] Renal function 2000 panelon 06-28-2022 Albumin [Mass/Vol] 2.9 g/dL Low 3.2 - 5.2 g/dL [facility] Anion gap [Moles/Vol] 12 mmol/L 10 - 2 0 mmol/L [facility] Calcium [Mass/Vol] 8.0 mg/dL Low 8.4 - 10. 2 mg/dL [facility] Chloride [Moles/Vol] 104 mmol/L 98 - 10 8 mmol/L [facility] Creatinine [Mass/Vol] 1.85 mg/dL High 0.60 - 1.20 mg/dL [facility] GFR/1.73 sq M.predicted CKD-EPI (S/P/Bld) [Vol rate/Area] 30 Low - PINF [facility] Comment on above: Estimated GFR was ca lculated using the 2020 CKD-EPI creatinine equation. Glucose [Mass/Vol] 92 mg/dL 65 - 99 mg/dL [facility] HCO3 [Moles/Vol] 27 mmol/L 21 - 32 mmol/L [facility] Interpretation and review of laboratory results Abnormal [facility] Phosphate [Mass/Vol] 5.2 mg/dL High 2.8 - 4 .1 mg/dL [facility] Potassium [Moles/Vol] 4.7 mmol/L 3.5 - 5.1 mmol/L [facility] Sodium [Moles/Vol] 138 mmol/L 135 - 145 mmol/L [facility] Urea nitrogen [Mass/Vol] 29 mg/dL High 8 - 25 mg/dL [facility] Urea nitrogen/Creatinine [Mass ratio] 15.7 mg/mg 10 - 20 [facility] has implemented the eGFR calculation approach that does not have a coefficient for race that conforms to the NKF-ASN Task Force Recommendations. [facility] Tissue Transglutaminase, IgA on 06-28-2022 Interpretation and review of laboratory results Normal [facility] Tissue Transglutaminase, IgA BANNERF [facility] Comment on above: Reference Ranges: <20 CU Negative 20-30 CU Weak Positive >30 CU Positive The following results were obtained with the [employer] h-tTG IgA chemiluminescent immunoassay. Values obtained with different manufacturers' assay methods may not be used interchangeably. [facility] CBC Auto Differentialon 06-07 Basophils (Bld) [#/Vol] 0.04 10*3/uL [facility] Basophils/100 WBC (Bld) 0.3 % [facility] Eosinophils (Bld) [#/Vol] 0.01 10*3/uL [facility] Eosinophils/100 WBC (Bld) 0.1 % [facility] Erythrocyte distribution width (RBC) [Entitic vol] 15.8 % High 11.6 - 14.8 % [facility] Hematocrit (Bld) [Volume fraction] 29.5 % Low 36 - 46 % [facility] Hemoglobin (Bld) [Mass/Vol] 9.0 g/dL Low 12 - 16 g/dL [facility] Immature granulocytes (Bld) [#/Vol] 0.17 10*3/uL [facility] Immature granulocytes/100 WBC (Bld) 1.30 % [facility] Comment on above: The IG parameter is the percentage of metamyelocytes, myelocytes and promyelocytes. An immature granulocyte count (IG) of 1% or more suggests the possibility of infection, an IG count of 3% is very likely related to an infection. Interpretation and review of laboratory results Abnormal [facility] Lymphocytes (Bld) [#/Vol] 1.07 10*3/uL [facility] Lymphocytes/100 WBC (Bld) 8.3 % [facility] MCH (RBC) [Entitic mass] 24.1 pg Low 26 - 34 pg [facility] MCHC (RBC) [Mass/Vol] 30.5 g/dL Low 31 - 37 g/dL [facility] MCV (RBC) [Entitic vol] 79.1 fL Low 80 - 100 fL [facility] Monocytes (Bld) [#/Vol] 0.94 10*3/uL High [facility] Monocytes/100 WBC (Bld) 7.3 % [facility] Neutrophils (Bld) [#/Vol] 10.63 10*3/uL High [facility] Neutrophils/100 WBC (Bld) 82.7 % [facility] Nucleated RBC (Bld) [#/Vol] 0.00 10*3/uL [facility] Nucleated RBC/100 WBC (Bld) [Ratio] 0.0 % [facility] Platelet mean volume (Bld) [Entitic vol] 9.7 fL 9.4 - 12.4 fL [facility] Platelets (Bld) [#/Vol] 379 10*3/uL [facility] RBC (Bld) [#/Vol] 3.73 10*6/uL Low [facility] ealt WBC (Bld) [#/Vol] 12.86 10*3/uL High [facility] CK [Catalytic activity/Vol]o n 06-27-2022 Interpretation and review of laboratory results Abnormal [facility] CPK NO MBon 06-27-2022 CK [Catalytic activity/Vol] 918 U/L High 40 - 170 U/L [facility] Glucose (Bld) [Mass/Vol]on 0 06-27-2022 Glucose [Mass/Vol] 126 mg/dL High 65 - 99 mg/dL [facility] oHeal Interpretation and review of laboratory results Abnormal [facility] Glucose [Mass/Vol] 162 mg/dL High 65 - 99 mg/dL [facility]Health Interpretation and review of laboratory results Abnormal [facility] Glucose [Mass/Vol] 112 mg/dL High 65 - 99 mg/dL [facility]Health Interpretation and review of laboratory results Abnormal [facility] Magnesium Levelon 06-27-2022 Magnesium [Mass/Vol] 1.6 mg/dL 1.6 - 2 .4 mg/dL [facility] Magnesium [Mass/Vol]on 06-27 Interpretation and review of laboratory results Normal [facility] Renal function 2000 panelon 06-27-2022 Albumin [Mass/Vol] 3.0 g/dL Low 3.2 - 5.2 g/dL [facility] Anion gap [Moles/Vol] 11 mmol/L 10 - 2 0 mmol/L [facility] Calcium [Mass/Vol] 8.6 mg/dL 8.4 - 10. 2 mg/dL [facility] Chloride [Moles/Vol] 101 mmol/L 98 - 10 8 mmol/L [facility] Creatinine [Mass/Vol] 1.85 mg/dL High 0.60 - 1.20 mg/dL [facility] GFR/1.73 sq M.predicted CKD-EPI (S/P/Bld) [Vol rate/Area] 30 Low - PINF [facility] Comment on above: Estimated GFR was ca lculated using the 2020 CKD-EPI creatinine equation. Glucose [Mass/Vol] 104 mg/dL High 65 - 99 mg/dL [facility] HCO3 [Moles/Vol] 27 mmol/L 21 - 32 mmol/L [facility] Interpretation and review of laboratory results Abnormal [facility] Phosphate [Mass/Vol] 3.7 mg/dL 2.8 - 4 .1 mg/dL [facility] Potassium [Moles/Vol] 4.4 mmol/L 3.5 - 5.1 mmol/L [facility] Sodium [Moles/Vol] 135 mmol/L 135 - 145 mmol/L [facility] Urea nitrogen [Mass/Vol] 28 mg/dL High 8 - 25 mg/dL [facility] Urea nitrogen/Creatinine [Mass ratio] 15.1 mg/mg [facility] has implemented the eGFR calculation approach that does not have a coefficient for race that conforms to the NKF-ASN Task Force Recommendations. [facility] Bacteria identified Cx Nom ( Bld)on 06-26-2022 Interpretation and review of laboratory results Normal [facility] CBC Auto Differentialon 06-07 Basophils (Bld) [#/Vol] 0.06 10*3/uL [facility] Basophils/100 WBC (Bld) 0.6 % [facility] Eosinophils (Bld) [#/Vol] 0.24 10*3/uL [facility] Eosinophils/100 WBC (Bld) 2.4 % [facility] Erythrocyte distribution width (RBC) [Entitic vol] 15.8 % High 11.6 - 14.8 % [facility] Hematocrit (Bld) [Volume fraction] 31.1 % Low 36 - 46 % [facility] Hemoglobin (Bld) [Mass/Vol] 9.6 g/dL Low 12 - 16 g/dL [facility] Immature granulocytes (Bld) [#/Vol] 0.11 10*3/uL [facility] Immature granulocytes/100 WBC (Bld) 1.10 % [facility] Comment on above: The IG parameter is the percentage of metamyelocytes, myelocytes and promyelocytes. An immature granulocyte count (IG) of 1% or more suggests the possibility of infection, an IG count of 3% is very likely related to an infection. Interpretation and review of laboratory results Abnormal [facility] Lymphocytes (Bld) [#/Vol] 1.22 10*3/uL [facility] Lymphocytes/100 WBC (Bld) 12.2 % [facility] MCH (RBC) [Entitic mass] 24.6 pg Low 26 - 34 pg [facility] MCHC (RBC) [Mass/Vol] 30.9 g/dL Low 31 - 37 g/dL [facility] MCV (RBC) [Entitic vol] 79.7 fL Low 80 - 100 fL [facility] Monocytes (Bld) [#/Vol] 0.84 10*3/uL [facility] Monocytes/100 WBC (Bld) 8.4 % [facility] Neutrophils (Bld) [#/Vol] 7.57 10*3/uL High [facility] Neutrophils/100 WBC (Bld) 75.3 % [facility] Nucleated RBC (Bld) [#/Vol] 0.00 10*3/uL [facility] Nucleated RBC/100 WBC (Bld) [Ratio] 0.0 % [facility] Platelet mean volume (Bld) [Entitic vol] 9.8 fL 9.4 - 12.4 fL [facility] Platelets (Bld) [#/Vol] 400 10*3/uL [facility] RBC (Bld) [#/Vol] 3.90 10*6/uL Low [facility] eah WBC (Bld) [#/Vol] 9.89 10*3/uL [facility] eah [facility] CK [Catalytic activity/Vol]o n 06-26-2022 Interpretation and review of laboratory results Abnormal [facility] CPK NO MBon 06-26-2022 CK [Catalytic activity/Vol] 1703 U/L High 40 - 170 U/L [facility] Glucose (Bld) [Mass/Vol]on 0 06-26-2022 Glucose [Mass/Vol] 225 mg/dL High 65 - 99 mg/dL [facility] oHealth Interpretation and review of laboratory results Abnormal [facility] Glucose [Mass/Vol] 134 mg/dL High 65 - 99 mg/dL [facility] Interpretation and review of laboratory results Abnormal [facility] Glucose [Mass/Vol] 121 mg/dL High 65 - 99 mg/dL [facility] Interpretation and review of laboratory results Abnormal [facility] Glucose [Mass/Vol] 109 mg/dL High 65 - 99 mg/dL [facility] Interpretation and review of laboratory results Abnormal [facility] Laboratory - Microbiology an d Antimicrobial susceptibilityon 06-26-2022 Bacteria identified Cx Nom (Bld) No Growth After 5 Days [facility] h Magnesium Levelon 06-26-2022 Magnesium [Mass/Vol] 1.6 mg/dL 1.6 - 2 .4 mg/dL [facility] Magnesium [Mass/Vol]on 06-26 Interpretation and review of laboratory results Normal [facility] Renal function 2000 panelon 06-26-2022 Albumin [Mass/Vol] 3.0 g/dL Low 3.2 - 5.2 g/dL [facility] Anion gap [Moles/Vol] 13 mmol/L 10 - 2 0 mmol/L [facility] Calcium [Mass/Vol] 8.6 mg/dL 8.4 - 10. 2 mg/dL [facility] Chloride [Moles/Vol] 102 mmol/L 98 - 10 8 mmol/L [facility] Creatinine [Mass/Vol] 1.87 mg/dL High 0.60 - 1.20 mg/dL [facility] GFR/1.73 sq M.predicted CKD-EPI (S/P/Bld) [Vol rate/Area] 30 Low - PINF [facility] Comment on above: Estimated GFR was ca lculated using the 2020 CKD-EPI creatinine equation. Glucose [Mass/Vol] 105 mg/dL High 65 - 99 mg/dL [facility] HCO3 [Moles/Vol] 26 mmol/L 21 - 32 mmol/L [facility] Interpretation and review of laboratory results Abnormal [facility] Phosphate [Mass/Vol] 4.5 mg/dL High 2.8 - 4 .1 mg/dL [facility] Potassium [Moles/Vol] 4.6 mmol/L 3.5 - 5.1 mmol/L [facility] Sodium [Moles/Vol] 136 mmol/L 135 - 145 mmol/L [facility] Urea nitrogen [Mass/Vol] 23 mg/dL 8 - 25 mg/dL [facility] Urea nitrogen/Creatinine [Mass ratio] 12.3 mg/mg 10 - 20 [facility] has implemented the eGFR calculation approach that does not have a coefficient for race that conforms to the NKF-ASN Task Force Recommendations. [facility] XR Chest 1 Viewon 06-26-2022 No acute cardiopulmonary abnormality. [facility]/hb Workstation ID: [id number] [employer] EXAMINATION: XR CHEST PA/AP 06/25/2022 1:41 pm [...] are unremarkable. No acute osseous abnormalities. Huy Mckeon M D - 06/26/2022 EXAMINATION: XR CHEST [...] osseous abnormalities. IMPRESSION: No acute cardiopulmonary abnormality. [facility]/hb Workstation ID: [id number] [facility] XR Chest 1 ViewOrdered By: Virgil Dial on 06-26-2022 [facility] Work Phone: CBC Auto Differentialon 06-07 Basophils (Bld) [#/Vol] 0.05 10*3/uL [facility] Basophils/100 WBC (Bld) 0.6 % [facility] Eosinophils (Bld) [#/Vol] 0.18 10*3/uL [facility] Eosinophils/100 WBC (Bld) 2.3 % [facility] Erythrocyte distribution width (RBC) [Entitic vol] 15.5 % High 11.6 - 14.8 % [facility] Hematocrit (Bld) [Volume fraction] 28.6 % Low 36 - 46 % [facility] Hemoglobin (Bld) [Mass/Vol] 8.6 g/dL Low 12 - 16 g/dL [facility] Immature granulocytes (Bld) [#/Vol] 0.04 10*3/uL [facility] Immature granulocytes/100 WBC (Bld) 0.50 % [facility] Comment on above: The IG parameter is the percentage of metamyelocytes, myelocytes and promyelocytes. An immature granulocyte count (IG) of 1% or more suggests the possibility of infection, an IG count of 3% is very likely related to an infection. Interpretation and review of laboratory results Abnormal [facility] Lymphocytes (Bld) [#/Vol] 0.99 10*3/uL [facility] Lymphocytes/100 WBC (Bld) 12.7 % [facility] MCH (RBC) [Entitic mass] 24.3 pg Low 26 - 34 pg [facility] MCHC (RBC) [Mass/Vol] 30.1 g/dL Low 31 - 37 g/dL [facility] MCV (RBC) [Entitic vol] 80.8 fL 80 - 100 fL [facility] Monocytes (Bld) [#/Vol] 0.57 10*3/uL [facility] Monocytes/100 WBC (Bld) 7.3 % [facility] Neutrophils (Bld) [#/Vol] 5.94 10*3/uL [facility] Neutrophils/100 WBC (Bld) 76.6 % [facility] Nucleated RBC (Bld) [#/Vol] 0.00 10*3/uL [facility] Nucleated RBC/100 WBC (Bld) [Ratio] 0.0 % [facility] Platelet mean volume (Bld) [Entitic vol] 9.4 fL 9.4 - 12.4 fL [facility] Platelets (Bld) [#/Vol] 279 10*3/uL [facility] RBC (Bld) [#/Vol] 3.54 10*6/uL Low [facility] ealth WBC (Bld) [#/Vol] 7.77 10*3/uL [facility] CK [Catalytic activity/Vol]o n 06-25-2022 Interpretation and review of laboratory results Abnormal [facility] COVID-19, MolecularOrdered B y: Katina Cortés on 06-25-2022 SARS-CoV-2 (COVID-19) RNA CATRINA+probe Ql (Resp) Not detected Not Detected [facility] CPK NO MBon 06-25-2022 CK [Catalytic activity/Vol] 4769 U/L High 40 - 170 U/L [facility] ECG 12 Leadon 06-25-2022 Atrial Rate 85 BPM [facility] P Wiggins 75 degrees [facility] P-R Interval 152 ms [facility] Q-T Interval 356 ms [facility] QRS Duration 88 ms [facility] QTC Calculation (Bezet) 423 ms O [facility] R Wiggins 37 degrees [facility] T Wiggins 52 degrees [facility] Ventricular Rate 85 BPM [facility] Normal sinus rhythm Normal ECG Confirmed by Jean-Pierre Middleton MD ([id number]) on 06/25/2022 12:32:18 PM MUSE [facility] Glucose (Bld) [Mass/Vol]on 0 06-25-2022 Glucose [Mass/Vol] 119 mg/dL High 65 - 99 [facility]dL [facility] Interpretation and review of laboratory results Abnormal [facility] Glucose [Mass/Vol] 98 mg/dL 65 - 99 mg/dL [facility] oHealth Interpretation and review of laboratory results Normal [facility] Glucose [Mass/Vol] 119 mg/dL High 65 - 99 mg/dL [facility] oHealth Interpretation and review of laboratory results Abnormal [facility] Glucose [Mass/Vol] 107 mg/dL High 65 - 99 mg/dL [facility] oHealth Interpretation and review of laboratory results Abnormal [facility] Magnesium Levelon 06-25-2022 Magnesium [Mass/Vol] 1.5 mg/dL Low 1.6 - 2 .4 mg/dL [facility] No Panel Informationon 06-25 Interpretation and review of laboratory results Abnormal [facility] Renal function 2000 panelon 06-25-2022 Albumin [Mass/Vol] 2.7 g/dL Low 3.2 - 5.2 g/dL [facility] Anion gap [Moles/Vol] 15 mmol/L 10 - 2 0 mmol/L [facility] Calcium [Mass/Vol] 8.6 mg/dL 8.4 - 10. 2 mg/dL [facility] Chloride [Moles/Vol] 106 mmol/L 98 - 10 8 mmol/L [facility] Creatinine [Mass/Vol] 2.05 mg/dL High 0.60 - 1.20 mg/dL [facility] GFR/1.73 sq M.predicted CKD-EPI (S/P/Bld) [Vol rate/Area] 27 Low - PINF [facility] Comment on above: Estimated GFR was ca lculated using the 2020 CKD-EPI creatinine equation. Glucose [Mass/Vol] 94 mg/dL 65 - 99 mg/dL [facility] HCO3 [Moles/Vol] 23 mmol/L 21 - 32 mmol/L [facility] Phosphate [Mass/Vol] 4.4 mg/dL High 2.8 - 4 .1 mg/dL [facility] Potassium [Moles/Vol] 5.1 mmol/L 3.5 - 5.1 mmol/L [facility] Sodium [Moles/Vol] 139 mmol/L 135 - 145 mmol/L [facility] Urea nitrogen [Mass/Vol] 28 mg/dL High 8 - 25 mg/dL [facility] Urea nitrogen/Creatinine [Mass ratio] 13.7 mg/mg 10 - 20 [facility] has implemented the eGFR calculation approach that does not have a coefficient for race that conforms to the NKF-ASN Task Force Recommendations. [facility] SARS-CoV-2 (COVID-19) RNA NA A+probe Ql (Resp)Ordered By: Katina Cortés on 06-25-2022 Interpretation and review of laboratory results Normal [facility] This test was perfor med under the [...] the following links: For Healthcare Providers: https://www.fda.gov/med ia/059895/download For Patients: https://www.fda.gov/med ia/197942/download [facility] XR Chest 1 Viewon 06-25-2022 Rad[facility] (narrative[place] [facility] [place]-06 Basophils (Bld) [#/Vol] 0.03 10*3/uL [facility] Basophils/100 WBC (Bld) 0.4 % [facility] Eosinophils (Bld) [#/Vol] 0.12 10*3/uL [facility] Eosinophils/100 WBC (Bld) 1.6 % [facility] Erythrocyte distribution width (RBC) [Entitic vol] 15.3 % High 11.6 - 14.8 % [facility] Hematocrit (Bld) [Volume fraction] 29.6 % Low 36 - 46 % [facility] Hemoglobin (Bld) [Mass/Vol] 8.6 g/dL Low 12 - 16 g/dL [facility] Immature granulocytes (Bld) [#/Vol] 0.04 10*3/uL [facility] Immature granulocytes/100 WBC (Bld) 0.50 % [facility] Comment on above: The IG parameter is the percentage of metamyelocytes, myelocytes and promyelocytes. An immature granulocyte count (IG) of 1% or more suggests the possibility of infection, an IG count of 3% is very likely related to an infection. Interpretation and review of laboratory results Abnormal [facility] Lymphocytes (Bld) [#/Vol] 0.86 10*3/uL Low [facility] Lymphocytes/100 WBC (Bld) 11.4 % [facility] MCH (RBC) [Entitic mass] 24.2 pg Low 26 - 34 pg [facility] MCHC (RBC) [Mass/Vol] 29.1 g/dL Low 31 - 37 g/dL [facility] MCV (RBC) [Entitic vol] 83.4 fL 80 - 100 fL [facility] Monocytes (Bld) [#/Vol] 0.56 10*3/uL [facility] Monocytes/100 WBC (Bld) 7.4 % [facility] Neutrophils (Bld) [#/Vol] 5.93 10*3/uL [facility] Neutrophils/100 WBC (Bld) 78.7 % [facility] Nucleated RBC (Bld) [#/Vol] 0.00 10*3/uL [facility] Nucleated RBC/100 WBC (Bld) [Ratio] 0.0 % [facility] Platelet mean volume (Bld) [Entitic vol] 9.4 fL 9.4 - 12.4 fL [facility] Platelets (Bld) [#/Vol] 281 10*3/uL [facility] RBC (Bld) [#/Vol] 3.55 10*6/uL Low [facility] WBC (Bld) [#/Vol] 7.54 10*3/uL [facility] CK [Catalytic activity/Vol]o n 06-24-2022 Interpretation and review of laboratory results Abnormal [facility] CPK NO MBon 06-24-2022 CK [Catalytic activity/Vol] 08533 U/L High 40 - 170 U/L [facility] Glucose (Bld) [Mass/Vol]on 0 06-24-2022 Glucose [Mass/Vol] 100 mg/dL High 65 - 99 mg/dL [facility] Interpretation and review of laboratory results Abnormal [facility] Glucose [Mass/Vol] 82 mg/dL 65 - 99 mg/dL [facility] Interpretation and review of laboratory results Normal [facility] Glucose [Mass/Vol] 96 mg/dL 65 - 99 mg/dL [facility] Interpretation and review of laboratory results Normal [facility] Glucose [Mass/Vol] 91 mg/dL 65 - 99 mg/dL [facility] Interpretation and review of laboratory results Normal [facility] Magnesium Levelon 06-24-2022 Magnesium [Mass/Vol] 1.7 mg/dL 1.6 - 2 .4 mg/dL [facility] Magnesium [Mass/Vol]on 06-24 Interpretation and review of laboratory results Normal [facility] Renal function 2000 panelon 06-24-2022 Albumin [Mass/Vol] 2.7 g/dL Low 3.2 - 5.2 g/dL [facility] Anion gap [Moles/Vol] 13 mmol/L 10 - 2 0 mmol/L [facility] Calcium [Mass/Vol] 8.5 mg/dL 8.4 - 10. 2 mg/dL [facility] Chloride [Moles/Vol] 107 mmol/L 98 - 10 8 mmol/L [facility] Creatinine [Mass/Vol] 2.48 mg/dL High 0.60 - 1.20 mg/dL [facility] GFR/1.73 sq M.predicted CKD-EPI (S/P/Bld) [Vol rate/Area] 21 Low - PINF [facility] Comment on above: Estimated GFR was ca lculated using the 2020 CKD-EPI creatinine equation. Glucose [Mass/Vol] 80 mg/dL 65 - 99 mg/dL [facility] HCO3 [Moles/Vol] 21 mmol/L 21 - 32 mmol/L [facility] Interpretation and review of laboratory results Abnormal [facility] Phosphate [Mass/Vol] 4.6 mg/dL High 2.8 - 4 .1 mg/dL [facility] Potassium [Moles/Vol] 5.3 mmol/L High 3.5 - 5.1 mmol/L [facility] Sodium [Moles/Vol] 136 mmol/L 135 - 145 mmol/L [facility] Urea nitrogen [Mass/Vol] 34 mg/dL High 8 - 25 mg/dL [facility] Urea nitrogen/Creatinine [Mass ratio] 13.7 mg/mg 10 - 20 [facility] has implemented the eGFR calculation approach that does not have a coefficient for race that conforms to the NKF-ASN Task Force Recommendations. [facility] Tissue ExamOrdered By: Marco A garcia on 06-24-2022 Case Report Surgical Pathology Report Case: [id number] Authorizing Provider: Tyshawn Santos, Collected: 06/23/2022 12:36 PM Ordering Location: [facility] Received: 06/23/2022 01:21 PM Endoscopy Pathologist: Marco A Romero, Specimens: A) - Colon, Sigmoid Colon B) - Rectum [facility] Work Phone: Pathology report final diagnosis Narrative c5usgYFaRVZstCEyBRTvGMz irbKlCLVfvURoI4NykuwgDQ xtWX9oPM7rvKnytNWjcEWaO FYjSqJej1ewj410gKUno7sp HZNFcquglWw1lAwqW78wb0A 1VfmoP7ugVHWwSMrpZXOeYK rrgVOxKTy9NJXixIIdkvXzV aPkTETmeQSejSG2FRKiRX1e zpnvXJdlIXveLIPbajL2ODX evRVjP9YtBPAdRM1wkqwnPP P6IUykVBVsAMY0OnAyVORka 6Csktx9UhSwaFVgRDgacMOs grudEGJbPsFvMF1jCXjipg0 5ULJ1q5bqbSAdDSriKrkchA MmluE5LObGJTDGDAcOTrTzP C7xVAeED9NWVGtIEyndPYF6 MXzofKI3a0awgVHby9d9JNb uZMP0xEBtlX2zLIP2GDRdJU fcz6klFVQfVDfgu2GtJFkCL ZGZKP3XQA5zhKQ4GTsNDCYX V9wWiJB2NAEusGJ5t1vhwGL wg9v0YTfbZAO6eCMuV57whJ F5ZHVoGUhtx2gbCKQgMHypg 8KjYQgUPMSTKE7XDV1xmDD8 DDjQZHKJRMtbNPV3RHpjcYs kYldbxySkaVOiIhDacK0wdC mycJ7sxENdsBTfiHzlESPjI fFgYSC5QNToEMemp3heZHTc GWvoe2XbXGvQBEQXJR9HLC8 jiSR9EXaKWIQUY2pRkNI1VS R5pKS4x2hgtHBoh4e4YInxK BV6uZIog2VyzXpvAqdvePL6 VHmqOvqjkE8fzLEBALNCLnq KTkrrdxSeID0JZWDQNW0XnD J8RXH6xGN8u8rsvQWer4r5K WqrIMO7mZhmtJXkrjyytw29 EGJ0UIQqSvNaWKB3t8vloZY eDGjsZxdghFPklkU8YXaDEO CXXHoJPzFhZU5pJVuFT4IOR hD7IcWwDGW9UWwboWfvXqkc lcLogFWzRlSquX3zpYtzqY8 cYlxmczIwXHBhclxsaTcyMF sypW20VdItKzMuX21vz85eF cBheJCru7Tsb0g0yE09uSHr dGKcsg3axVroCAPnsj9neIU wdVV9WzqnKICvuUciGPwnoq FnvXFrSLWfFf4bXXojpt17I TW5l6fllLAyOWzqUichpXXa qjA3GFmQUUSRSJrOSlXuQV5 oOZjHW4PRHTnDOifsQDB0TO k7rOS4k7wihTTmu7r9FJwwL BE3pMBmvT9hCZQ1FFQmTPgs n2swQOUyWAnnx1EiUDxGJJT RGJ5ARR9zqPF0DLoGWYUZW8 qHuXJ5QTQvjGM7r9ypzWVbc 3s0CHblSMA9rDKvL6P6wDbc GszlmJC1WVoeEyzaoS0qvKN YOOEKFygUInwdiuMwZA5BFG LPQE3FsUC3ZTErrPX9z9twj ZCui5s2QMuiKOE3iYphcTJi uyqrel85YVB4AIVbTrWaDWS cPUkjExrohOL3KZggHnpmuK 5zdCBIWVBFUkxJTksgbmFtZ I1AAOTQLaJEYO57OtZ2NPy0 Yg51NGKvPQJotXYbUSkcY30 6WhjqeMD2v2psyRDbWVqnAg prcDTgkeO5SMuLTHGFSTpLK aGfRS7nSVqXL5XDBpS2WoM8 NJe1Hs28NDRrDRYujTQgKBo wP146LDQzUWdlBLEdy7FvR3 XtGiuhvoCzYIn9ODFrMFowz 9fuKEPlKZhnd1OsABaASNNI MV2FXB1rnPP8BUdHJMQSQKy jDGU8XEi6vYF5z1ihhUZuy9 i0PLrbMEK9fUcmpSElmowpX GZzMjBccGFyXGxpNzIwXGxp kqkiXYo9fYMznMxpGFXeMhU sT1AiSSQmX2MuVQYtlZu7VK Vbn1xooVoaFMBqXMLngf29H N8thKOpWMDfpklpLV5cvSG9 HTWSZYU4iENzgsRxRxNkoRU wcyexpSH4RWCsBBSdo4QuOI AgfpTtoTZ2AJCgBD5fKQCcE IBdJRizWK5vWTG5qZAsjkQg PH6aCBI7b0ZcTTNoLI8iFVU oZSBkaWZmZXJlbnRpYWwgZG zoD87yx5phEFmnG9k2UMQfJ IltNmIncHzrienrLNW4OHFm SHSrllJcERTqDUV6kG8nQCR iLQKff3RhIP6xJZ1coOImKP QmD66NTsCOIIIPD01CTDKYV NOCG3PPS5aFNVC5DpV8xVV1 FuOxOfQcUldfLhO6TMD9Lc7 5ZcW5SMJ6qTD0JA6sPYB7GW d8ABI5OSl6EVJ3ZdT4XOAro XD5DR3iSHFfSPp6NZDfC90C OoJOCQOAB96GANXDWJXLX1Z JSMBSUBoJM2HCZS5CIWNTQT JSSR0EJWnZKbEOOObAZ0VAR N7DUZVNBQXSPZ0FVvHmFVdL W6MTF4nVYMBcRDMYEMPJLFN qMiMZBB4gKJb8WTRoPDF2dm beLVA8CNr1Ukq1ZNPlo0iwc ncbSOA9KYl1S5e1KQMvaXLw fG8yzKD7VcU2LIbkkTUof4X XrQXefBG0AtZwCISgzEGal9 VCH58cu872ZtA7JUJypEDya 2VOXqu7k4BwsTlcMxA4XKU3 RX2rLDfGI2FBO2yZZSYfMER YRMYIIYCbPL3LGOdIDV5RGK TjONVWLKOKSAHsWdIENC2mN GoZQR3HFCVkSWTUWIXTIEKx AT4NTKCUCO5MASILHZGJW99 EDEGTDIHTS4EJO9qJOFHJQD HMRkEPSjXUAB9AASBIYBDSI G4DHyY2 [facility] Work Phone: Pathology report gross observation Narrative y7fkuUImKMCwyKCdQRThYGj zcjOjGPEkdNGgU7VoggzzNH kcFO7hNF3pnPugaHIesZAmH OFcOdZyu4sri961fWPty7ku FKEWhiburAh4kLwcK29ue5Y 9AukmM8tzEEEsTOklLWUcNN gzpFGbYSm8UBQlfLJhxrZkO gNoFFIpeDCvfHM0ERWmJW2h cgbuMQpbCZwaZERzqpD2DZC mdYTtH9HmMMHqRM5viqgtKI A9OGqgSDAuHGA6LeJjZSWpv 0Zybrt5ZoLbhSv5f1phWKAb QAUejPbrr9fsDVO3KPTuiSW yV4zowW5uFTNxDG1xznrpq6 mgUOsyHInqXETdjAW4tqX3S MYalDLtY1TarA9zKOCwURAj lgYsvJxecN7xQqIkXTzoMnQ uPW7nXQFhKXXIAQLmdTRaGR EqntJwb7FpNTlyyothTOQhm KbrHZRbQXSgEMPVq4amqccb Q7byeA1eVNNPb9opbhRSrW5 ot5qhZACwiELurEFklEvtEa agqNV4MRkiWpohcO4odRHYB IXNAmiRMxfgwkKmRB7LSJIV WjURYY90UjExKGB8ZLfrrQn wYjtgatSjqQMbRrSkeZ8fdj FwZ3owCeqriUT1YRfeSnanw I3bkTUORKQKRhqQEicvjrGn ZK5QKXREXJ2OuDW4ACJeeGQ 6MC60HKEhWSPhwEPbCScxB0 19XHBsYWluXGZzMjAgIHRhb iBmcmFnbWVudChzKSBvZiB0 cPTujIUgiOYvm9GxvJ2iBIP kTHG6XIYtGLP7RESxGsNhmU oaxm34WNO6n5mliLBzQXriM uqiyJJmhtN6RZlRXNKRFEdD TsMiMW7cDZoEO0WUNGnAUkf pTHQ4Y9qdoDM9l2ixdHMjm1 y1GIfhPGN9jSSrlnFyX2cgS CyaiCWew0njcEYuWSahHcmc yGWiphL0MCiQZFQNFIjCNdW eBL5qLAkZD4SHQvS5PuLpAR V8EtzraCxcAmbzhzQemNLaA qRwtQ1dhDpkmS5jHaDsYCJj EICrrPTzqIkmg6BxbLt6wYD eLLvcXLXkR5Jtc3C3xJQytp kuXHBhclxwYXJkXHBhciBCL mIKLTPwbGFxYAZducSxu6Qu YWxpbiwgZGVzaWduYXRlZCA tXzYVFWS7tX0sYnrocCR7Cv nuHESgz7JrX6I2YLUpTYsfg 7hhRMGjTGdpd4UvSPfVQJHO VL2FJM3poGN9VBnIEAFCX8p YdCD2FFOcwLU1F523HRXtWK BmpLMdAQuuJ876RUKkCKO4Y MHfHHesg6lvDZLvDJeze0Er ETyVRARHKC4HZB8dnTB8GXa HWCAXOSppGUO0ELzlaMS8q3 kjgIAxd5d0AKhiWQS7kVnmz IQmzswpiiQtFIX5DI0gZhXf K10pjzAlsztqp5AnxTxpd5H rRR2dHTP1htiwTiCuUbXrnV SlGtLjmZNxAxTrR96euCKek NOthZqzIreelKV7TEleHuoo cZ5dnGPMQZYFWvlKHblgtnB iTY1DOLDXDfZPZI02UeTnCY V0JYb7pJjrDjbenbQbfMFaD vFzsG9evT8qHWgelvTrKYFm JqfxBmmibSG4VZmrBtwnbG5 zdCBIWVBFUkxJTksgbmFtZT 0UXIMULC8MiFR2EVJidAN6O S75SHOhRJXjyJIyPRlaD335 RCNqIAjeGHHgSnWnZHRXu2Z ppRu4OTK0Yc2uxPWcZYBjzj KoZCQdn5ZdsYNcIBLhJceiC OQyyGCwVPoiXVHjO0ilvOUj AHFhTPFUly4rirKroJTxmH5 kyZejqaSdVIKea7YpJQWaYY S5LP7wysLlhYGqGADIz5Gjq EAieHRkOZPaMMYTmEOrw47o ktFAirOikGOlOHLfs4WqHOl wLXVJCCC5MBtzW9ntILYrxf AWGFHNCDrWQ4XdATQSDKPZI DFhAqDQGR7aDdIfSEY1IW05 JaH3JGUmdYA6NB0xTJW2FPo sZYnnIyVtQUO7HT2dHPDORZ WHZOgREC3JBKPZGCJTDE6JV gJrV1bHGQNBIlKgLFTACEXN OXWpXrZTAM0vR5tCMCABMcG ySEKZEKLOZNMmGL6KNYHBWD BMRO0FHOQPM76NEILGPGFEI 8ICJ4wLSXDox9BOfzXrSxWn IN36HfD1VZEkQL9uEOhUWRD gfnNiT0ewWNdnjUW6TeLjPC WhaNDze6XTogNnJkUsNS90N zN2NETcJF59NOnVGXZwhcOv J7blTCroaLB7TtYaPUSbrVK ODLPOSMiAAGAXHe3BXLZGEA LHAF8XUmXhQ9FVXV8EQi7UH IBXAIRXON2BEDoBZwLxT8YF KA6JKv0IUVZOFDCAZQ1UBcX jKMKBH7GXPrWOO9wmFMEGKA VVIOUzIiDNEP9vKHYEIT6HM OJWTPKBY28LOUQDMSTRL7NN RH0= [facility] Work Phone: Pathology report microscopic observation Narrative Other stain x1cuvIZaWTTzjRZoVgHjRJG nGEGay3ejLPBwlRSmWtLcEd NcZnRuYmpcdWMxXGRlZmYwe 9iof048nQSlr8zmIUKuFvI2 aIMvNDRujVCrK815ORCyUSn tq6oor9VgAIPxnSZjy9I4FA PHqeinnFo3aLamY40ux5J0M uhpY1ckEBZmIKEjI8RjQB7f PYDxYjz7OXL8KJB8EMWpJZK lS8BiDN2lAHOpfVOmKUr9b6 jerGrjOEAlRZB3y3tvCIvxt nHyFN3zlp2zzBv1l6qwwrPq MVUxQSZzsMZPPJSgZ8OcbKa bBw0tkLr6kNcwVnzyEZD1Ar r5DG0rzs90diw4fUmwGLRsi uavZzH6NQhjVUOopdqoBMj9 ZCpfSYGtyNY8PJKovYDlO6T mIYCjUC1jqve0HHH7OBduUW SqXkX5BRHglIImWXUqeMxsH Olai683OCF3EkVgAU0fW3Vm v1J4zN1eoEDdTVAdaVDtGpW rNQYufy4wyWHqRSmdz7JoWB K6hiK1bYKuaMKcJFUwAC82E irzc8YkYekaPOM4UJYdfeGw m3Ugm6odEoRhddNcX2gtY1G yZHJoZWFkXHBnYnJkcmZvb3 Ygc2BybMDioPu6m4bhFXDaE KAldIayq6hoUTG3LNHzP8G5 lZLse4raLGicQJJjpDN8dtA 6IYFvmDNuR1IanP5iQOIaHD 5auhj4k1arKAI4PLklLILfA iL2xgI3FDFopNLoQVQowBms VTbbk288UMR8WyVnCEFsd1Q yB1FezAyzL81diCgyW09vCW WsyEdwdS2awCivzZ6mRdPaB nMyNFxxbFxwbGFpblxmMVxm sxAiURsdsdfhFXFxMGegC8i uNbPlXBYphIgbAEnwc9VcOA AnVMBvObUpRFqpli3jQ07mb BWtPDrzwZapBTGbj10hyOVy fIJzFe2xwTCnWhbsJNU0 [facility] Work Phone: [facility] Work Phone: Troponin x 2 (Now and Repeat in 3 hours)on 06-24-2022 [facility] Troponin I 1 ng/L < -/+ 12 change [facility] Troponin I Delta Change No biomarker evidence of cardiac injury. [facility] Troponin I 31 ng/L NINF - 59 ng/L [facility] Troponin I 30 ng/L NINF - 59 ng/L [facility] Troponin I Interpretation Normal [facility] XR Chest 1 Viewon 06-24-2022 1. New mild pulmonary vascular congestion. 2. No focal airspace consolidation. Workstation ID: [id number] [employer] EXAMINATION: XR CHEST PA/AP 06/24/2022 9:59 am [...] No acute osseous or soft tissue abnormalities. [employer] Meaghan Canada, DO - 06/24/2022 EXAMINATION: XR CHEST PA/AP [...] No focal airspace consolidation. Workstation ID: [id number] [facility] Radiology Study observation (narrative) [facility] th XR Chest 1 ViewOrdered By: Virgil Canada on 06-24-2022 [facility] Work Phone: Basic metabolic 2000 panelOr dered By: Ronal Allan on 06-23-2022 Anion gap [Moles/Vol] 14 mmol/L 10 - 2 0 mmol/L [facility] Calcium [Mass/Vol] 8.0 mg/dL Low 8.4 - 10. 2 mg/dL [facility] Chloride [Moles/Vol] 105 mmol/L 98 - 10 8 mmol/L [facility] Creatinine [Mass/Vol] 2.86 mg/dL High 0.60 - 1.20 mg/dL [facility] GFR/1.73 sq M.predicted CKD-EPI (S/P/Bld) [Vol rate/Area] 18 Low - PINF [facility] Comment on above: Estimated GFR was ca lculated using the 2020 CKD-EPI creatinine equation. Glucose [Mass/Vol] 85 mg/dL 65 - 99 mg/dL [facility] HCO3 [Moles/Vol] 20 mmol/L Low 21 - 32 mmol/L [facility] Interpretation and review of laboratory results Abnormal [facility] Potassium [Moles/Vol] 5.3 mmol/L High 3.5 - 5.1 mmol/L [facility] Sodium [Moles/Vol] 134 mmol/L Low 135 - 145 mmol/L [facility] Urea nitrogen [Mass/Vol] 45 mg/dL High 8 - 25 mg/dL [facility] Urea nitrogen/Creatinine [Mass ratio] 15.7 mg/mg 10 - 20 [facility] has implemented the eGFR calculation approach that does not have a coefficient for race that conforms to the NKF-ASN Task Force Recommendations. [facility] CBC panel Auto (Bld)on 06-23 Erythrocyte distribution width (RBC) [Entitic vol] 15.8 % High 11.6 - 14.8 % [facility] Hematocrit (Bld) [Volume fraction] 28.1 % Low 36 - 46 % [facility] Hemoglobin (Bld) [Mass/Vol] 8.4 g/dL Low 12 - 16 g/dL [facility] Interpretation and review of laboratory results Abnormal [facility] MCH (RBC) [Entitic mass] 24.9 pg Low 26 - 34 pg [facility] MCHC (RBC) [Mass/Vol] 29.9 g/dL Low 31 - 37 g/dL [facility] MCV (RBC) [Entitic vol] 83.4 fL 80 - 100 fL [facility] Nucleated RBC (Bld) [#/Vol] 0.00 10*3/uL [facility] Nucleated RBC/100 WBC (Bld) [Ratio] 0.0 % [facility] Platelet mean volume (Bld) [Entitic vol] 9.9 fL 9.4 - 12.4 fL [facility] Platelets (Bld) [#/Vol] 303 10*3/uL [facility] RBC (Bld) [#/Vol] 3.37 10*6/uL Low [facility] eah WBC (Bld) [#/Vol] 10.12 10*3/uL [facility] Glucose (Bld) [Mass/Vol]on 0 06-23-2022 Glucose [Mass/Vol] 102 mg/dL High 65 - 99 mg/dL [facility] Interpretation and review of laboratory results Abnormal [facility] Glucose [Mass/Vol] 97 mg/dL 65 - 99 mg/dL [facility] Interpretation and review of laboratory results Normal [facility] Glucose [Mass/Vol] 90 mg/dL 65 - 99 mg/dL [facility] Interpretation and review of laboratory results Normal [facility] Glucose [Mass/Vol] 90 mg/dL 65 - 99 mg/dL [facility] Interpretation and review of laboratory results Normal [facility] SIGMOIDOSCOPYon 06-23-2022 [facility] TSH DL <= 0.005 mIU/L Qnon 0 06-23-2022 Interpretation and review of laboratory results Normal [facility] TSH Qn 0.68 m[IU]/L [facility] Gastrointestinal pathogens D NA and RNA panel CATRINA+non-probe (Stl)Ordered By: Andree Chapa on 06-22-2022 Adenovirus 40+41 DNA CATRINA+non-probe Ql (Stl) Not detected Not Detected [facility] Astrovirus subtypes 1-8 RNA CATRINA+non-probe Ql (Stl) Not detected Not Detected [facility] C. cayetanensis DNA CATRINA+non-probe Ql (Stl) Not detected Not Detected [facility] C. coli+jejuni+upsaliensis DNA CATRINA+non-probe Ql (Stl) Not detected Not Detected [facility] C. difficile toxin A+B tcdA+tcdB genes CATRINA+non-probe Ql (Stl) Not detected Not Detected [facility] Cryptosporidium sp DNA CATRINA+non-probe Ql (Stl) Not detected Not Detected [facility] E. coli enteroaggregative [place] plasmid aggR+aatA genes CATRINA+non-probe Ql (Stl) Not detected Not Detected [facility] E. coli enteropathogenic eae gene CATRINA+non-probe Ql (Stl) Not detected Not Detected [facility] E. coli enterotoxigenic ltA+st1a+st1b genes CATRINA+non-probe Ql (Stl) Not detected Not Detected [facility] E. coli stx1+stx2 genes CATRINA+non-probe Ql (Stl) Not detected Not Detected [facility] E. histolytica DNA CATRINA+non-probe Ql (Stl) Not detected Not Detected [facility] G. lamblia DNA CATRINA+non-probe Ql (Stl) Not detected Not Detected [facility] Interpretation and review of laboratory results Normal [facility] Norovirus genogroup I+II RNA CATRINA+non-probe Ql (Stl) Not detected Not Detected [facility] P. shigelloides DNA CATRINA+non-probe Ql (Stl) Not detected Not Detected [facility] Rotavirus A RNA CATRINA+non-probe Ql (Stl) Not detected Not Detected [facility] S. enterica+bongori DNA CATRINA+non-probe Ql (Stl) Not detected Not Detected [facility] Sapovirus genogroups I+II+IV+V RNA CATRINA+non-probe Ql (Stl) Not detected Not Detected [facility] Shigella species+EIEC invasion plasmid antigen H ipaH gene CATRINA+non-probe Ql (Stl) Not detected Not Detected [facility] V. cholerae DNA CATRINA+non-probe Ql (Stl) Not detected Not Detected [facility] V. cholerae+parahaemolytic us+vulnificus DNA CATRINA+non-probe Ql (Stl) Not detected Not Detected [facility] Y. enterocolitica DNA CATRINA+non-probe Ql (Stl) Not detected Not Detected [facility] Results of PCR testi ng for stool [...] infections as well as select bacterial infections. [facility] Glucose (Bld) [Mass/Vol]on 0 06-22-2022 Glucose [Mass/Vol] 98 mg/dL 65 - 99 mg/dL [facility] Interpretation and review of laboratory results Normal [facility] Glucose [Mass/Vol] 95 mg/dL 65 - 99 mg/dL [facility] Interpretation and review of laboratory results Normal [facility] Glucose [Mass/Vol] 121 mg/dL High 65 - 99 mg/dL [facility] Interpretation and review of laboratory results Abnormal [facility] Glucose [Mass/Vol] 99 mg/dL 65 - 99 mg/dL [facility] Interpretation and review of laboratory results Normal [facility] Basic metabolic 1998 panelon 06-21-2022 [facility] CBC Auto Differentialon 06-06 Basophils (Bld) [#/Vol] 0.06 10*3/uL [facility] Basophils/100 WBC (Bld) 0.3 % [facility] E[facility] [#/Vol] 0.03 10*3/uL [facility] Eosinophils/100 WBC (Bld) 0.1 % [facility] Erythrocyte distribution width (RBC) [Entitic vol] 15.8 % High 11.6 - 14.8 % [facility] Hematocrit (Bld) [Volume fraction] 36.1 % 36 - 46 % [facility] Hemoglobin (Bld) [Mass/Vol] 10.9 g/dL Low 12 - 16 g/dL [facility] Immature granulocytes (Bld) [#/Vol] 0.12 10*3/uL [facility] Immature granulocytes/100 WBC (Bld) 0.60 % [facility] Comment on above: The IG parameter is the percentage of metamyelocytes, myelocytes and promyelocytes. An immature granulocyte count (IG) of 1% or more suggests the possibility of infection, an IG count of 3% is very likely related to an infection. Interpretation and review of laboratory results Abnormal [facility] Lymphocytes (Bld) [#/Vol] 1.18 10*3/uL [facility] Lymphocytes/100 WBC (Bld) 5.7 % [facility] MCH (RBC) [Entitic mass] 24.7 pg Low 26 - 34 pg [facility] MCHC (RBC) [Mass/Vol] 30.2 g/dL Low 31 - 37 g/dL [facility] MCV (RBC) [Entitic vol] 81.9 fL 80 - 100 fL [facility] Monocytes (Bld) [#/Vol] 0.99 10*3/uL High [facility] Monocytes/100 WBC (Bld) 4.8 % [facility] Neutrophils (Bld) [#/Vol] 18.32 10*3/uL High [facility] Neutrophils/100 WBC (Bld) 88.5 % [facility] Nucleated RBC (Bld) [#/Vol] 0.00 10*3/uL [facility] Nucleated RBC/100 WBC (Bld) [Ratio] 0.0 % [facility] Platelet mean volume (Bld) [Entitic vol] 9.7 fL 9.4 - 12.4 fL [facility] Platelets (Bld) [#/Vol] 503 10*3/uL High [facility] RBC (Bld) [#/Vol] 4.41 10*6/uL [facility] ealth WBC (Bld) [#/Vol] 20.70 10*3/uL [facility] CT Abdomen Pelvis Without Co ntraston 06-21-2022 1. There is fluid throughout the colon which may be consistent with rapid transit/diarrhea. 2. Hepatic steatosis. 3. Extensive aortic calcification. [employer] Workstation ID: [id number] [employer] [facility] EXAMINATION: CT ABDOMEN PELVIS WITHOUT CONTRAST HISTORY: [...] the lumbar spine. No suspicious osseous lesion. [employer] [facility] Vasiliy Lopez MD - 06/21/2022 EXAMINATION: CT [...] 2. Hepatic steatosis. 3. Extensive aortic calcification. TIFFANY/ari Workstation ID: [id number] [facility] Radiology Study observation (narrative) [facility] Comprehensive metabolic 2000 panelon 06-21-2022 Albumin [Mass/Vol] 3.2 g/dL 3.2 - 5.2 g/dL [facility] ALP [Catalytic activity/Vol] 81 U/L 40 - 150 U/L [facility] ALT [Catalytic activity/Vol] 131 U/L High 14 - 65 U/L [facility] AST [Catalytic activity/Vol] 712 U/L High 0 - 45 U/L [facility] Bilirubin [Mass/Vol] 0.2 mg/dL 0 - 1.3 mg/dL [facility] Calcium [Mass/Vol] 9.4 mg/dL 8.4 - 10. 2 mg/dL [facility] Protein [Mass/Vol] 8.0 g/dL 6 - 8 g/dL [facility] Critical Careon 06-21-2022 Jaiden Bagley MD 06/21/2022 2:29 PM Critical Care Performed by: Jaiden Bagley MD Authorized by: Jaiden Bagley MD Total critical care time: 30 minutes [facility] Glucose (Bld) [Mass/Vol]on 0 06-21-2022 Glucose [Mass/Vol] 122 mg/dL High 65 - 99 mg/dL [facility] Interpretation and review of laboratory results Abnormal [facility] Glucose [Mass/Vol] 98 mg/dL 65 - 99 mg/dL [facility] Interpretation and review of laboratory results Normal [facility] INR Coag (PPP) [Relative pablo e]on 06-21-2022 Interpretation and review of laboratory results Normal [facility] PT Coag (PPP) [Time] 14.2 s [facility] During the induction phase of oral anticoagulation, the INR may not reflect the anticoagulation status of the patient. Therapeutic ranges for INR's are: Most clinical situations: INR 2.0-3.0 Mechanical Prosthetic Valve: INR 2.5-3.5 Critical: INR >5.0 [facility] Laboratory - Chemistry and C hemistry - challengeon 06-21-2022 Anion gap [Moles/Vol] 15 mmol/L 10 - 2 0 mmol/L [facility] Chloride [Moles/Vol] 97 mmol/L Low 98 - 10 8 mmol/L [facility] Creatinine [Mass/Vol] 2.61 mg/dL High 0.60 - 1.20 mg/dL [facility] GFR/1.73 sq M.predicted CKD-EPI (S/P/Bld) [Vol rate/Area] 20 Low - PINF [facility] Comment on above: Estimated GFR was ca lculated using the 2020 CKD-EPI creatinine equation. Glucose [Mass/Vol] 124 mg/dL High 65 - 99 mg/dL [facility] HCO3 [Moles/Vol] 23 mmol/L 21 - 32 mmol/L [facility] Potassium [Moles/Vol] 5.2 mmol/L High 3.5 - 5.1 mmol/L [facility] Sodium [Moles/Vol] 130 mmol/L Low 135 - 145 mmol/L [facility] Urea nitrogen [Mass/Vol] 48 mg/dL High 8 - 25 mg/dL [facility] Urea nitrogen/Creatinine [Mass ratio] 18.4 mg/mg 10 - 20 [facility] Lactate [Moles/Vol]on 2021 Interpretation and review of laboratory results Normal [facility] Lactic Acid, Plasmaon 2021 Lactate [Moles/Vol] 0.9 mmol/L 0.6 - 2 mmol/L [facility] Lipaseon 06-21-2022 Lipase [Catalytic activity/Vol] 133 U/L 73 - 393 U/L [facility] Lipase [Catalytic activity/V ol]on 06-21-2022 Interpretation and review of laboratory results Normal [facility] No Panel Informationon 06-21 [facility] Interpretation and review of laboratory results Abnormal [facility] has implemented the eGFR calculation approach that does not have a coefficient for race that conforms to the NKF-ASN Task Force Recommendations. [facility] PT/INRon 06-21-2022 INR Coag (PPP) [Relative time] 1.1 {INR} 0.8 - 1.1 [facility] Troponinon 06-21-2022 Troponin I 34 ng/L NINF - 59 ng/L [facility] Troponin I Interpretation Normal [facility] XR Chest 1 Viewon 06-21-2022 No evident acute process in the chest. [employer] Workstation ID: [id number] [employer] [facility] EXAMINATION: XR CHEST PA/AP HISTORY: Weakness. COMPARISON: Chest x-ray 03/31/2022. TECHNIQUE: A portable frontal upright view of the chest. FINDINGS: Calcified granulomas at the right upper lobe. No airspace opacity. No pneumothorax or pleural effusion. Cardiomediastinal silhouette and pulmonary vasculature are within normal limits. Surgical clips project at the left neck. Surgical anchor at the right humeral head. Vasiliy Woods MD - 06/21/2022 EXAMINATION: XR CHEST PA/AP [...] in the chest. JMK/lab Workstation ID: [id number] [facility] Radiology Study observation (narrative) [place] XR Chest 1 ViewOrdered By: Brandie Lopez on 06-21-2022 [facility] Work Phone: Basic metabolic 2000 panelon 04-04-2022 Anion gap [Moles/Vol] 13 mmol/L 10 - 2 0 mmol/L [facility] Calcium [Mass/Vol] 9.1 mg/dL 8.4 - 10. 2 mg/dL [facility] Chloride [Moles/Vol] 99 mmol/L 98 - 10 8 mmol/L [facility] Creatinine [Mass/Vol] 1.23 mg/dL High 0.60 - 1.20 mg/dL [facility] GFR/1.73 sq M.predicted CKD-EPI (S/P/Bld) [Vol rate/Area] 47 Low - PINF [facility] Glucose [Mass/Vol] 101 mg/dL High 65 - 99 mg/dL [facility] HCO3 [Moles/Vol] 28 mmol/L 21 - 32 mmol/L [facility] Interpretation and review of laboratory results Abnormal [facility] Potassium [Moles/Vol] 4.3 mmol/L 3.5 - 5.1 mmol/L [facility] Sodium [Moles/Vol] 136 mmol/L 135 - 145 mmol/L [facility] Urea nitrogen [Mass/Vol] 10 mg/dL 8 - 25 mg/dL [facility] Urea nitrogen/Creatinine [Mass ratio] 8.1 mg/mg Low 10 - 20 [facility] The eGFR should be u sed for monitoring renal function only and not for medication dosing. [facility] CBC panel Auto (Bld)on 05-30 -2022 Erythrocyte distribution width (RBC) [Entitic vol] 16.1 % High 11.6 - 14.8 % [facility] Hematocrit (Bld) [Volume fraction] 32.8 % Low 36 - 46 % [facility] Hemoglobin (Bld) [Mass/Vol] 9.9 g/dL Low 12 - 16 g/dL [facility] Interpretation and review of laboratory results Abnormal [facility] MCH (RBC) [Entitic mass] 24.6 pg Low 26 - 34 pg [facility] MCHC (RBC) [Mass/Vol] 30.2 g/dL Low 31 - 37 g/dL [facility] MCV (RBC) [Entitic vol] 81.6 fL 80 - 100 fL [facility] Nucleated RBC (Bld) [#/Vol] 0.00 10*3/uL [facility] Nucleated RBC/100 WBC (Bld) [Ratio] 0.0 % [facility] Platelet mean volume (Bld) [Entitic vol] 10.0 fL 9.4 - 12.4 fL [facility] Platelets (Bld) [#/Vol] 267 10*3/uL [facility] RBC (Bld) [#/Vol] 4.02 10*6/uL [facility] WBC (Bld) [#/Vol] 6.14 10*3/uL [facility] Glucose (Bld) [Mass/Vol]on 0 04-04-2022 Glucose [Mass/Vol] 106 mg/dL High 65 - 99 mg/dL [facility] Interpretation and review of laboratory results Abnormal [facility] Magnesium Levelon 04-04-2022 Magnesium [Mass/Vol] 1.9 mg/dL 1.6 - 2 .4 mg/dL [facility] Magnesium [Mass/Vol]on 04-04 Interpretation and review of laboratory results Normal [facility] Phosphate [Mass/Vol]on 04-04 Interpretation and review of laboratory results Abnormal [facility] Phosphoruson 04-04-2022 Phosphate [Mass/Vol] 4.4 mg/dL High 2.8 - 4 .1 mg/dL [facility] Basic metabolic 2000 panelon 04-03-2022 Anion gap [Moles/Vol] 15 mmol/L 10 - 2 0 mmol/L [facility] Calcium [Mass/Vol] 9.1 mg/dL 8.4 - 10. 2 mg/dL [facility] Chloride [Moles/Vol] 101 mmol/L 98 - 10 8 mmol/L [facility] Creatinine [Mass/Vol] 1.14 mg/dL 0.60 - 1.20 mg/dL [facility] GFR/1.73 sq M.predicted CKD-EPI (S/P/Bld) [Vol rate/Area] 51 Low - PINF [facility] Glucose [Mass/Vol] 101 mg/dL High 65 - 99 mg/dL [facility] HCO3 [Moles/Vol] 26 mmol/L 21 - 32 mmol/L [facility] Interpretation and review of laboratory results Abnormal [facility] Potassium [Moles/Vol] 4.7 mmol/L 3.5 - 5.1 mmol/L [facility] Sodium [Moles/Vol] 137 mmol/L 135 - 145 mmol/L [facility] Urea nitrogen [Mass/Vol] 10 mg/dL 8 - 25 mg/dL [facility] Urea nitrogen/Creatinine [Mass ratio] 8.8 mg/mg Low 10 - 20 [facility] The eGFR should be u sed for monitoring renal function only and not for medication dosing. [facility] CBC panel Auto (Bld)on 04-03 Erythrocyte distribution width (RBC) [Entitic vol] 16.2 % High 11.6 - 14.8 % [facility] Hematocrit (Bld) [Volume fraction] 30.9 % Low 36 - 46 % [facility] Hemoglobin (Bld) [Mass/Vol] 9.3 g/dL Low 12 - 16 g/dL [facility] Interpretation and review of laboratory results Abnormal [facility] MCH (RBC) [Entitic mass] 24.4 pg Low 26 - 34 pg [facility] MCHC (RBC) [Mass/Vol] 30.1 g/dL Low 31 - 37 g/dL [facility] MCV (RBC) [Entitic vol] 81.1 fL 80 - 100 fL [facility] Nucleated RBC (Bld) [#/Vol] 0.00 10*3/uL [facility] Nucleated RBC/100 WBC (Bld) [Ratio] 0.0 % [facility] Platelet mean volume (Bld) [Entitic vol] 10.3 fL 9.4 - 12.4 fL [facility] Platelets (Bld) [#/Vol] 286 10*3/uL [facility] RBC (Bld) [#/Vol] 3.81 10*6/uL Low [facility] eah WBC (Bld) [#/Vol] 7.32 10*3/uL [facility] ealth [facility] Glucose (Bld) [Mass/Vol]on 0 04-03-2022 Glucose [Mass/Vol] 118 mg/dL High 65 - 99 mg/dL [facility] Interpretation and review of laboratory results Abnormal [facility] Glucose [Mass/Vol] 141 mg/dL High 65 - 99 mg/dL [facility] oHeal Interpretation and review of laboratory results Abnormal [facility] Glucose [Mass/Vol] 98 mg/dL 65 - 99 mg/dL [facility] Interpretation and review of laboratory results Normal [facility] Glucose [Mass/Vol] 109 mg/dL High 65 - 99 mg/dL [facility] Interpretation and review of laboratory results Abnormal [facility] Magnesium Levelon 04-03-2022 Magnesium [Mass/Vol] 1.9 mg/dL 1.6 - 2 .4 mg/dL [facility] Magnesium [Mass/Vol]on 04-03 Interpretation and review of laboratory results Normal [facility] Phosphate [Mass/Vol]on 04-03 Interpretation and review of laboratory results Normal [facility] Phosphoruson 04-03-2022 Phosphate [Mass/Vol] 4.1 mg/dL 2.8 - 4 .1 mg/dL [facility] Basic metabolic 2000 panelon 04-02-2022 Anion gap [Moles/Vol] 16 mmol/L 10 - 2 0 mmol/L [facility] Calcium [Mass/Vol] 8.6 mg/dL 8.4 - 10. 2 mg/dL [facility] Chloride [Moles/Vol] 101 mmol/L 98 - 10 8 mmol/L [facility] Creatinine [Mass/Vol] 1.12 mg/dL 0.60 - 1.20 mg/dL [facility] GFR/1.73 sq M.predicted CKD-EPI (S/P/Bld) [Vol rate/Area] 52 Low - PINF [facility] Glucose [Mass/Vol] 95 mg/dL 65 - 99 mg/dL [facility] HCO3 [Moles/Vol] 24 mmol/L 21 - 32 mmol/L [facility] Interpretation and review of laboratory results Abnormal [facility] Potassium [Moles/Vol] 5.0 mmol/L 3.5 - 5.1 mmol/L [facility] Sodium [Moles/Vol] 136 mmol/L 135 - 145 mmol/L [facility] Urea nitrogen [Mass/Vol] 11 mg/dL 8 - 25 mg/dL [facility] Urea nitrogen/Creatinine [Mass ratio] 9.8 mg/mg Low 10 - 20 [facility] The eGFR should be u sed for monitoring renal function only and not for medication dosing. [facility] CBC panel Auto (Bld)on 04-02 Erythrocyte distribution width (RBC) [Entitic vol] 16.4 % High 11.6 - 14.8 % [facility] Hematocrit (Bld) [Volume fraction] 31.9 % Low 36 - 46 % [facility] Hemoglobin (Bld) [Mass/Vol] 9.4 g/dL Low 12 - 16 g/dL [facility] Interpretation and review of laboratory results Abnormal [facility] MCH (RBC) [Entitic mass] 24.4 pg Low 26 - 34 pg [facility] MCHC (RBC) [Mass/Vol] 29.5 g/dL Low 31 - 37 g/dL [facility] MCV (RBC) [Entitic vol] 82.9 fL 80 - 100 fL [facility] Nucleated RBC (Bld) [#/Vol] 0.00 10*3/uL [facility] Nucleated RBC/100 WBC (Bld) [Ratio] 0.0 % [facility] Platelet mean volume (Bld) [Entitic vol] 9.9 fL 9.4 - 12.4 fL [facility] Platelets (Bld) [#/Vol] 280 10*3/uL [facility] RBC (Bld) [#/Vol] 3.85 10*6/uL Low [facility] W[facility] (Bld[facility] [#/Vol] 7.21 10*3/uL [facility] ECG 12 Leadon 04-02-2022 Atrial Rate 82 BPM [facility] P Wiggins 70 degrees [facility] P-R Interval 152 ms [facility] Q-T Interval 368 ms [facility] QRS Duration 94 ms [facility] QTC Calculation (Bezet) 429 ms [facility] R Wiggins 45 degrees [facility] T Wiggins 16 degrees [facility] Ventricular Rate 82 BPM [facility] th Normal sinus rhythm Nonspecific T wave abnormality Abnormal ECG Confirmed by RIVER ZAVALA MD ([id number]) on 04/02/2022 8:18:58 AM MUSE [facility] Atrial Rate 75 BPM [facility] P Wiggins 56 degrees [facility] P-R Interval 144 ms [facility] Q-T Interval 366 ms [facility] QRS Duration 98 ms [facility] QTC Calculation (Bezet) 408 ms [facility] R Wiggins 31 degrees [facility] T Wiggins 1 degrees [facility] Ventricular Rate 75 BPM [facility] Normal sinus rhythm Nonspecific T wave abnormality Abnormal ECG Confirmed by RIVER ZAVALA MD ([id number]) on 04/02/2022 8:13:22 AM MUSE [facility] Glucose (Bld) [Mass/Vol]on 0 04-02-2022 Glucose [Mass/Vol] 101 mg/dL High 65 - 99 mg/dL [facility] Interpretation and review of laboratory results Abnormal [facility] Glucose [Mass/Vol] 107 mg/dL High 65 - 99 mg/dL [facility] Interpretation and review of laboratory results Abnormal [facility] Glucose [Mass/Vol] 153 mg/dL High 65 - 99 mg/dL [facility] Interpretation and review of laboratory results Abnormal [facility] Glucose [Mass/Vol] 95 mg/dL 65 - 99 mg/dL [facility] Interpretation and review of laboratory results Normal [facility] Magnesium Levelon 04-02-2022 Magnesium [Mass/Vol] 1.9 mg/dL 1.6 - 2 .4 mg/dL [facility] Magnesium [Mass/Vol]on 04-02 Interpretation and review of laboratory results Normal [facility] Phosphate [Mass/Vol]on 04-02 Interpretation and review of laboratory results Normal [facility] Phosphoruson 04-02-2022 Phosphate [Mass/Vol] 3.1 mg/dL 2.8 - 4 .1 mg/dL [facility] UrinalysisOrdered By: Surendra Patel on 04-02-2022 Bacteria Auto Ql (U) Rare Abnormal None Se en /hpf [facility] Bilirubin Ql (U) Negative Negative [facility] Clarity Refractometry automated (U) Clear Clear [facility] Color (U) Yellow Colorless, Yellow [facility] Glucose Auto test strip (U) [Mass/Vol] Negative Negative mg/dL [facility] Hemoglobin Auto test strip Ql (U) Moderate Abnormal Negative [facility] Interpretation and review of laboratory results Abnormal [facility] Ketones (U) [Mass/Vol] Negative Negat radha mg/dL [facility] Leukocyte esterase Auto test strip Ql (U) Trace Abnormal Negative [facility] Mucus Auto (Urine sed) [#/Area] Rare None Seen, Rare /lpf [facility] Nitrite Auto test strip Ql (U) Negative Negative [facility] pH (U) 6.0 [pH] 5 - 7 [facility] Protein (U) [Mass/Vol] 100 mg/dL Abnormal Negat radha mg/dL [facility] RBC Auto (Urine sed) [#/Area] 64 High [facility] Specific gravity (U) [Rel density] 1.010 1.005 - 1.025 [facility] Urobilinogen (U) [Mass/Vol] mg/dL NINF - 2.0 mg/dL [facility] WBC Auto (Urine sed) [#/Area] 4 [facility] Microscopic examinat ion is performed on all urinalysis samples and only positive findings are reported. The test for blood on the chemical analytic portion of urinalysis may also be positive due to hemoglobinuria and myoglobinuria and if red blood cells are present they are quantified by microscopic examination. [facility] Basic metabolic 2000 panelon 04-01-2022 Anion gap [Moles/Vol] 13 mmol/L 10 - 2 0 mmol/L [facility] Calcium [Mass/Vol] 8.5 mg/dL 8.4 - 10. 2 mg/dL [facility] Chloride [Moles/Vol] 102 mmol/L 98 - 10 8 mmol/L [facility] Creatinine [Mass/Vol] 1.48 mg/dL High 0.60 - 1.20 mg/dL [facility] GFR/1.73 sq M.predicted CKD-EPI (S/P/Bld) [Vol rate/Area] 37 Low - PINF [facility] Glucose [Mass/Vol] 92 mg/dL 65 - 99 mg/dL [facility] HCO3 [Moles/Vol] 24 mmol/L 21 - 32 mmol/L [facility] Interpretation and review of laboratory results Abnormal [facility] Potassium [Moles/Vol] 4.8 mmol/L 3.5 - 5.1 mmol/L [facility] Sodium [Moles/Vol] 134 mmol/L Low 135 - 145 mmol/L [facility] Urea nitrogen [Mass/Vol] 15 mg/dL 8 - 25 mg/dL [facility] Urea nitrogen/Creatinine [Mass ratio] 10.1 mg/mg 10 - 20 [facility] The eGFR should be u sed for monitoring renal function only and not for medication dosing. [facility] CBC panel Auto (Bld)on 04-01 Erythrocyte distribution width (RBC) [Entitic vol] 16.3 % High 11.6 - 14.8 % [facility] Hematocrit (Bld) [Volume fraction] 31.8 % Low 36 - 46 % [facility] Hemoglobin (Bld) [Mass/Vol] 9.4 g/dL Low 12 - 16 g/dL [facility] Interpretation and review of laboratory results Abnormal [facility] MCH (RBC) [Entitic mass] 24.7 pg Low 26 - 34 pg [facility] MCHC (RBC) [Mass/Vol] 29.6 g/dL Low 31 - 37 g/dL [facility] MCV (RBC) [Entitic vol] 83.5 fL 80 - 100 fL [facility] Nucleated RBC (Bld) [#/Vol] 0.00 10*3/uL [facility] Nucleated RBC/100 WBC (Bld) [Ratio] 0.0 % [facility] Platelet mean volume (Bld) [Entitic vol] 9.8 fL 9.4 - 12.4 fL [facility] Platelets (Bld) [#/Vol] 269 10*3/uL [facility] RBC (Bld) [#/Vol] 3.81 10*6/uL Low [facility] WBC (Bld) [#/Vol] 7.70 10*3/uL [facility] Glucose (Bld) [Mass/Vol]on 0 04-01-2022 Glucose [Mass/Vol] 133 mg/dL High 65 - 99 mg/dL [facility] Interpretation and review of laboratory results Abnormal [facility] Glucose [Mass/Vol] 103 mg/dL High 65 - 99 mg/dL [facility] Interpretation and review of laboratory results Abnormal [facility] Glucose [Mass/Vol] 97 mg/dL 65 - 99 mg/dL [facility] Interpretation and review of laboratory results Normal [facility] Glucose [Mass/Vol] 95 mg/dL 65 - 99 mg/dL [facility] Interpretation and review of laboratory results Normal [facility] Magnesium Levelon 04-01-2022 Magnesium [Mass/Vol] 1.9 mg/dL 1.6 - 2 .4 mg/dL [facility] Magnesium [Mass/Vol]on 04-01 Interpretation and review of laboratory results Normal [facility] Phosphate [Mass/Vol]on 04-01 Interpretation and review of laboratory results Normal [facility] Phosphoruson 04-01-2022 Phosphate [Mass/Vol] 3.5 mg/dL 2.8 - 4 .1 mg/dL [facility] Basic metabolic 2000 panelon 03-31-2022 Anion gap [Moles/Vol] 17 mmol/L 10 - 2 0 mmol/L [facility] Calcium [Mass/Vol] 8.5 mg/dL 8.4 - 10. 2 mg/dL [facility] Chloride [Moles/Vol] 98 mmol/L 98 - 10 8 mmol/L [facility] Creatinine [Mass/Vol] 1.97 mg/dL High 0.60 - 1.20 mg/dL [facility] GFR/1.73 sq M.predicted CKD-EPI (S/P/Bld) [Vol rate/Area] 26 Low - PINF [facility] Glucose [Mass/Vol] 97 mg/dL 65 - 99 mg/dL [facility] HCO3 [Moles/Vol] 24 mmol/L 21 - 32 mmol/L [facility] Interpretation and review of laboratory results Abnormal [facility] Potassium [Moles/Vol] 4.8 mmol/L 3.5 - 5.1 mmol/L [facility] Sodium [Moles/Vol] 134 mmol/L Low 135 - 145 mmol/L [facility] Urea nitrogen [Mass/Vol] 22 mg/dL 8 - 25 mg/dL [facility] Urea nitrogen/Creatinine [Mass ratio] 11.2 mg/mg 10 - 20 [facility] The eGFR should be u sed for monitoring renal function only and not for medication dosing. [facility] CBC panel Auto (Bld)on 03-31 Erythrocyte distribution width (RBC) [Entitic vol] 16.5 % High 11.6 - 14.8 % [facility] Hematocrit (Bld) [Volume fraction] 34.1 % Low 36 - 46 % [facility] Hemoglobin (Bld) [Mass/Vol] 10.0 g/dL Low 12 - 16 g/dL [facility] Interpretation and review of laboratory results Abnormal [facility] MCH (RBC) [Entitic mass] 24.5 pg Low 26 - 34 pg [facility] MCHC (RBC) [Mass/Vol] 29.3 g/dL Low 31 - 37 g/dL [facility] MCV (RBC) [Entitic vol] 83.6 fL 80 - 100 fL [facility] Nucleated RBC (Bld) [#/Vol] 0.00 10*3/uL [facility] Nucleated RBC/100 WBC (Bld) [Ratio] 0.0 % [facility] Platelet mean volume (Bld) [Entitic vol] 10.0 fL 9.4 - 12.4 fL [facility] Platelets (Bld) [#/Vol] 413 10*3/uL High [facility] RBC (Bld) [#/Vol] 4.08 10*6/uL [facility]alth WBC (Bld) [#/Vol] 12.23 10*3/uL [facility] EKGon 03-31-2022 Ordered by an unspecified provider. [facility] Glucose (Bld) [Mass/Vol]on 0 03-31-2022 Glucose [Mass/Vol] 119 mg/dL High 65 - 99 mg/dL [facility] Interpretation and review of laboratory results Abnormal [facility] Glucose [Mass/Vol] 113 mg/dL High 65 - 99 mg/dL [facility] oHealth Interpretation and review of laboratory results Abnormal [facility] Glucose [Mass/Vol] 121 mg/dL High 65 - 99 mg/dL [facility]Health Interpretation and review of laboratory results Abnormal [facility] Glucose [Mass/Vol] 114 mg/dL High 65 - 99 [facility] Interpret[facility] and review of laboratory results Abnormal [facility] Magnesium Levelon 03-31-2022 Magnesium [Mass/Vol] 1.9 mg/dL 1.6 - 2 .4 mg/dL [facility] Magnesium [Mass/Vol]on 03-31 Interpretation and review of laboratory results Normal [facility] Phosphate [Mass/Vol]on 03-31 Interpretation and review of laboratory results Abnormal [facility] Phosphoruson 03-31-2022 Phosphate [Mass/Vol] 5.2 mg/dL High 2.8 - 4 .1 mg/dL [facility] Troponin OnceOrdered By: Ana Win on 03-31-2022 Delta Difference Troponin T 1 ng/L < = -/+ 7 change [facility] Inter Troponin T Delta Change Probable non-acute cardiac injury or late presentation of acute injury. [facility] Interpretation and review of laboratory results Abnormal [facility] Troponin T 33 ng/L Critically high NINF - 14 ng/L [facility] XR CHEST AP/PA AND LATon XR CHEST [...] on MonMarch 31, 2022 11:02:50 AM EDT [facility] Comment on above: Order Comment: Injur y/Trauma or Illness?:Illness/Other How long have you had these symptoms (acute/chronic)?:Acute Reason for exam?:POST OP EVAL WITH POOR PULMONARY RESERVES History of cancer?:unknown Surgeries, chemotherapy, or radiation?:cholecystectomy, hysterectomy, oophrectomy Type of Exam?:Initial Additional signs and symptoms?:POST OP XR Chest AP/PA and LATon 1. No active pulmonary disease. Workstation ID: [id number] [facility] EXAMINATION: TWO XRAY VIEWS OF THE CHEST [...] are noted. There are scattered calcified granulomas. [facility] Jose Bedoya MD - 03/31/2022 EXAMINATION: TWO [...] No active pulmonary disease. Workstation ID: [id number] [facility] Radiology Study observation (narrative) XR Chest AP/PA and LATOrdere d By: Jose Bedoya on 03-31-2022 [facility] Work Phone: APTTon 03-30-2022 aPTT Coag (Bld) [Time] 33 s [facility] Blood type and Indirect anti body screen panel (Bld)on 03-30-2022 ABO and Rh group Nom (Bld) Blood group A Rh(D) positive [facility] Blood group antibody screen Ql Negative [facility] Specimen Expires 04/02/2022 23:59 EST [facility] Glucose (Bld) [Mass/Vol]on 0 03-30-2022 Glucose [Mass/Vol] 105 mg/dL High 65 - 99 mg/dL [facility] Interpretation and review of laboratory results Abnormal [facility] Glucose [Mass/Vol] 131 mg/dL High 65 - 99 mg/dL [facility] Interpretation and review of laboratory results Abnormal [facility] Glucose [Mass/Vol] 145 mg/dL High 65 - 99 mg/dL [facility] Interpretation and review of laboratory results Abnormal [facility] Troponin OnceOrdered By: Hong Davison on 03-30-2022 Interpretation and review of laboratory results Abnormal [facility] Troponin T 32 ng/L Critically high NINF - 14 ng/L [facility] Troponin T Interpretation Possible acute cardiac injury. [facility] aPTT Coag (Bld) [Time]on Interpretation and review of laboratory results Normal [facility] Therapeutic range fo r APTT's is 68 - 104 seconds [facility] No Panel Informationon 12-30 6 min walk [...] 109 O2 2 lpm [facility] PFT LAB [facility] HGB + HCTon 07-05-2021 Hematocrit (Bld) [Volume fraction] 35.9 % Low 36.0 - 46.[address] [facility] Comment on above: Performed By: #### H H #### [address] [address] Hemoglobin (Bld) [Mass/Vol] 11.3 g/dL Low 12.0 - 16.[address] [facility] Comment on above: Performed By: #### H H #### [address] [address] RENAL FUNCTION PANELon 07-05 Albumin [Mass/Vol] 4.0 g/dL Normal 3.4 - 5.0 [facility] Comment on above: Performed By: #### R ENAL #### [address] [address] Anion gap [Moles/Vol] 11 mmol/L Normal 10 - 20 [facility] Comment on above: Performed By: #### R ENAL #### [address] [address] Calcium [Mass/Vol] 8.8 mg/dL Normal 8.6 - 10.3 [facility] Comment on above: Performed By: #### R ENAL #### [address] [address] Chloride [Moles/Vol] 103 mmol/L Normal 98 - 107 [facility] Comment on above: Performed By: #### R ENAL #### [address] [address] Creatinine [Mass/Vol] 1.28 mg/dL High 0.50 - 1.05 [facility] Comment on above: Performed By: #### R ENAL #### [address] [address] GFR- AM. 51 mL/min/1.73m2 Abnormal >60 [facility] Comment on above: Result Comment: CALC ULATIONS OF ESTIMATED GFR ARE PERFORMED USING THE MDRD STUDY EQUATION FOR THE IDMS-TRACEABLE CREATININE METHODS. CLIN CHEM 2007;53:766-72 Performed By: #### R ENAL #### [address] [address] GFR-NON AM. 42 mL/min/1.73m2 Abnormal >[address] [facility] Comment on above: Performed By: #### R ENAL #### [address] [address] Glucose [Mass/Vol] 97 mg/dL Normal 74 - 99 [facility] Comment on above: Performed By: #### R ENAL #### [address] [address] HCO3 (Bld) [Moles/Vol] 27 mmol/L Normal 21 - 32 [facility] Comment on above: Performed By: #### R ENAL #### [address] [address] Phosphate [Mass/Vol] 4.0 mg/dL Normal 2.5 - 4.9 [facility] Comment on above: Result Comment: The performance characteristics of phosphorus testing in heparinized plasma have been validated by the individual laboratory site where testing is performed. Testing on heparinized plasma is not approved by the FDA; however, such approval is not necessary. Performed By: #### R ENAL #### [address] [address] Potassium [Moles/Vol] 4.8 mmol/L Normal 3.5 - 5.3 [facility] Comment on above: Performed By: #### R ENAL #### [address] [address] Sodium [Moles/Vol] 136 mmol/L Normal 136 - 145 [facility] Comment on above: Performed By: #### R ENAL #### [address] [address] Urea nitrogen [Mass/Vol] 32 mg/dL High 6 - [address] [facility] Comment on above: Performed By: #### R ENAL #### [address] [address] TOTAL PROTEIN, URINE SPOTon 07-05-2021 CREATININE,URINE 37.0 mg/dL Normal 20.0 - 320.0 [facility] Comment on above: Performed By: #### T PS2 #### [address] [address] T. PROTEIN/CREAT RATIO 0.32 mg/mg Creat High 0.00 - 0.[address] [facility] Comment on above: Performed By: #### T PS2 #### [address] [address] TOTAL PROT,URINE SPOT 12 mg/dL Normal 5 - 24 [facility] Comment on above: Performed By: #### T PS2 #### [address] [address] KAPPA/LAMBDA FREE LIGHT MARQUIS N,Son 06-20-2021 FREE KAPPA LIGHT CHAINS,S 5.60 mg/dL High 0.33 - 1.[address] [facility] Comment on above: Performed By: #### K STEWART #### [facility] [address] [place] [address] FREE KAPPA/LAMBDA RATIO,S 1.19 Normal 0.26 - 1.[address] [facility] Comment on above: Result Comment: Unde tected [...] the testing laboratory. Performed By: #### K TERRY #### [facility] [address] [place] [address] FREE LAMBDA LIGHT CHAIN,S 4.72 mg/dL High 0.57 - 2.[address] [facility] Comment on above: Performed By: #### K TERRY #### [facility] [address] [place] [address] CBCon 06-18-2021 Erythrocyte distribution width (RBC) [Ratio] 18.8 % High 11.5 - 14.[address] [facility] Comment on above: Performed By: #### C BC #### [address] [address] Hematocrit (Bld) [Volume fraction] 35.3 % Low 36.0 - 46.[address] [facility] Comment on above: Performed By: #### C BC #### [address] [address] Hemoglobin (Bld) [Mass/Vol] 10.9 g/dL Low 12.0 - 16.[address] [facility] Comment on above: Performed By: #### C BC #### [address] [address] MCHC (RBC) [Mass/Vol] 31.0 g/dL Low 32.0 - 36.0 [facility] Comment on above: Performed By: #### C BC #### [address] [address] MCV (RBC) [Entitic vol] 78 fL Low 80 - 100 [facility] Comment on above: Performed By: #### C BC #### [address] [address] Platelets (Bld) [#/Vol] 291 10*3/uL Normal 150 - [address] [facility] Comment on above: Performed By: #### C BC #### [address] [address] RBC 4.49 x10E12/L Normal 4.00 - 5.[address] [facility] Comment on above: Performed By: #### C BC #### [address] [address] WBC (Bld) [#/Vol] 7.1 10*3/uL Normal 4.4 - 11.3 [facility] Comment on above: Performed By: #### C BC #### [address] [address] COMPREHENSIVE PANELon 2020 Albumin [Mass/Vol] 3.9 g/dL Normal 3.4 - 5.0 [facility] Comment on above: Performed By: #### C MP #### [address] [address] ALP [Catalytic activity/Vol] 62 U/L Normal 33 - [address] [facility] Comment on above: Performed By: #### C MP #### [address] [address] ALT [Catalytic activity/Vol] 13 U/L Normal 7 - [address] [facility] Comment on above: Result Comment: Michelle ents treated with Sulfasalazine may generate falsely decreased results for ALT. Performed By: #### C MP #### [address] [address] Anion gap [Moles/Vol] 12 mmol/L Normal 10 - 20 [facility] Comment on above: Performed By: #### C MP #### [address] [address] AST [Catalytic activity/Vol] 14 U/L Normal 9 - [address] [facility] Comment on above: Performed By: #### C MP #### [address] [address] Bilirubin [Mass/Vol] 0.3 mg/dL Normal 0.0 - 1.2 [facility] Comment on above: Performed By: #### C MP #### [address] [address] Calcium [Mass/Vol] 9.0 mg/dL Normal 8.6 - 10.3 [facility] Comment on above: Performed By: #### C MP #### [address] [address] Chloride [Moles/Vol] 101 mmol/L Normal 98 - 107 [facility] Comment on above: Performed By: #### C MP #### [address] [address] Creatinine [Mass/Vol] 1.68 mg/dL High 0.50 - 1.05 [facility] Comment on above: Performed By: #### C MP #### [address] [address] GFR- AM. 38 mL/min/1.73m2 Abnormal >60 [facility] Comment on above: Result Comment: CALC ULATIONS OF ESTIMATED GFR ARE PERFORMED USING THE MDRD STUDY EQUATION FOR THE IDMS-TRACEABLE CREATININE METHODS. CLIN CHEM 2007;53:766-72 Performed By: #### C MP #### [address] [address] GFR-NON AM. 31 mL/min/1.73m2 Abnormal >[address] [facility] Comment on above: Performed By: #### C MP #### [address] [address] Glucose [Mass/Vol] 89 mg/dL Normal 74 - 99 [facility] Comment on above: Performed By: #### C MP #### [address] [address] HCO3 (Bld) [Moles/Vol] 24 mmol/L Normal 21 - 32 [facility] Comment on above: Performed By: #### C MP #### [address] [address] Potassium [Moles/Vol] 5.0 mmol/L Normal 3.5 - 5.3 [facility] Comment on above: Performed By: #### C MP #### [address] [address] Protein [Mass/Vol] 7.1 g/dL Normal 6.4 - 8.2 [facility] Comment on above: Performed By: #### C MP #### [address] [address] Sodium [Moles/Vol] 132 mmol/L Low 136 - 145 [facility] Comment on above: Performed By: #### C MP #### [address] [address] Urea nitrogen [Mass/Vol] 45 mg/dL High 6 - [address] [facility] Comment on above: Performed By: #### C MP #### [address] [address] FOLATE, SERUMon 06-18-2021 Folate [Mass/Vol] 11.9 ng/mL Normal >5.0 [facility] Comment on above: Result Comment: Low <3.4 Borderline 3.4-5.0 Normal >5.0 . Patients receiving more than 5 mg/day of biotin may have interference in test results. A sample should be taken no sooner than eight hours after previous dose. Contact the testing laboratory for additional information. Performed By: #### F OLA2 #### [address] [address] TSHon 06-18-2021 TSH Qn 1.76 m[IU]/L Normal 0.44 - 3.[address] [facility] Comment on above: Result Comment: TSH testing is performed using different testing methodology at [facility] than at other [facility]. Direct result comparisons should only be made within the same method. Performed By: #### T SH2 #### [address] [address] VITAMIN B12on 06-18-2021 Cobalamin (Vitamin B12) [Mass/Vol] 467 pg/mL Normal 211 - [address] [facility] Comment on above: Performed By: #### V TB12 #### [address] [address] PT Progress Noteon 1 PT Progress Note [...] secs on/20 off with lbs as tolerated. ANTENNA SPECIALIST can also manual distraction and soft tissue [...] wfls PALPATION: defer (more content not included)... [facility] panelOr dered By: Georgie Vázquez on 04-14-2021 Anion gap [Moles/Vol] 12 mmol/L 10 - 2 0 mmol/L [facility] Calcium [Mass/Vol] 9.2 mg/dL 8.4 - 10. 2 mg/dL [facility] Chloride [Moles/Vol] 104 mmol/L 98 - 10 8 mmol/L [facility] Creatinine [Mass/Vol] 1.77 mg/dL High 0.60 - 1.[address] [facility] GFR/1.73 sq M.predicted CKD-EPI (S/P/Bld) [Vol rate/Area] 30 Low >=60 mL/min/1.73 m2 [facility] Glucose [Mass/Vol] 112 mg/dL High 65 - 99 mg/dL [facility] HCO3 [Moles/Vol] 25 mmol/L 21 - 32 mmol/L [facility] Potassium [Moles/Vol] 4.8 mmol/L 3.5 - 5.1 mmol/L [facility] Sodium [Moles/Vol] 136 mmol/L 135 - 145 mmol/L [facility] Urea nitrogen [Mass/Vol] 35 mg/dL High 8 - 25 mg/dL [facility] Urea nitrogen/Creatinine [Mass ratio] 19.8 mg/mg [facility] The eGFR should be u sed for monitoring renal function only and not for medication dosing. [facility] CBC WITH AUTO DIFFERENTIALOr dered By: Georgie Vázquez on 04-14-2021 Basophils (Bld) [#/Vol] 0.07 10*3/uL [facility] Basophils/100 WBC (Bld) 1.0 % [facility] Eosinophils (Bld) [#/Vol] 0.12 10*3/uL [facility] Eosinophils/100 WBC (Bld) 1.6 % [facility] Erythrocyte distribution width (RBC) [Entitic vol] 17.5 % High 11.6 - 14.8 % [facility] Hematocrit (Bld) [Volume fraction] 39.6 % 36.0 - 46.0 % [facility] Hemoglobin (Bld) [Mass/Vol] 12.0 g/dL 12.0 - 16.0 g/dL [facility] Immature granulocytes (Bld) [#/Vol] 0.02 10*3/uL [facility] Immature granulocytes/100 WBC (Bld) 0.30 % [facility] Comment on above: The IG parameter is the percentage of metamyelocytes, myelocytes and promyelocytes. An immature granulocyte count (IG) of 1% or more suggests the possibility of infection, an IG count of 3% is very likely related to an infection. Interpretation and review of laboratory results Abnormal [facility] Lymphocytes (Bld) [#/Vol] 1.44 10*3/uL [facility] Lymphocytes/100 WBC (Bld) 19.6 % [facility] MCH (RBC) [Entitic mass] 24.0 pg Low 26.0 - 34.0 pg [facility] MCHC (RBC) [Mass/Vol] 30.3 g/dL Low 31.0 - 37.0 g/dL [facility] MCV (RBC) [Entitic vol] 79.4 fL Low 80.0 - 100.0 fL [facility] Monocytes (Bld) [#/Vol] 0.52 10*3/uL [facility] Monocytes/100 WBC (Bld) 7.1 % [facility] Neutrophils (Bld) [#/Vol] 5.16 10*3/uL [facility] Neutrophils/100 WBC (Bld) 70.4 % [facility] Nucleated RBC (Bld) [#/Vol] 0.00 10*3/uL [facility] Nucleated RBC/100 WBC (Bld) [Ratio] 0.0 % [facility] Platelet mean volume (Bld) [Entitic vol] 10.9 fL 9.4 - 12.4 fL [facility] Platelets (Bld) [#/Vol] 282 10*3/uL [facility] RBC (Bld) [#/Vol] 4.99 10*6/uL [facility] WBC (Bld) [#/Vol] 7.33 10*3/uL [facility] CPK NO MBOrdered By: Georgie Vázquez on 04-14-2021 CK [Catalytic activity/Vol] 1936 U/L High 40 - 170 U/L [facility] Gold TopOrdered By: Georgie carey on 04-14-2021 Extra Tube Hold for add-ons. [facility] Comment on above: Auto resulted. [facility] Magnesium LevelOrdered By: Damari Vázquez on 04-14-2021 Magnesium [Mass/Vol] 2.2 mg/dL 1.6 - 2 .4 mg/dL [facility] Magnesium [Mass/Vol]Ordered By: Georgie Vázquez on 04-14-2021 [facility] No Panel InformationOrdered By: Georgie Vázquez on 04-14-2021 Extra Tube Hold for add-ons. [facility] Comment on above: Auto resulted. [facility] Extra Tube Hold for add-ons. [facility] Comment on above: Auto resulted. [facility] Interpretation and review of laboratory results Abnormal [facility] Interpretation and review of laboratory results Normal [facility] PhosphorusOrdered By: Georgie Vázquez on 04-14-2021 Phosphate [Mass/Vol] 3.5 mg/dL 2.8 - 4 .1 mg/dL [facility] Therapy Communicationon Therapy Communication Message RADHA ALEXANDERAREN no showed today . No voicemail set up. Signatures Electronically signed by : Anjana Hernandez PTA; Apr 14 2021 4:45PM EST (Author) Normal [facility] URINALYSISOrdered By: Georgie Vázquez on 04-14-2021 Bacteria Auto Ql (U) None Seen None Se en /hpf [facility] Clarity Refractometry automated (U) Clear Clear [facility] Color (U) Yellow Colorless, Yellow [facility] Glucose Auto test strip (U) [Mass/Vol] Negative Negative mg/dL [facility] Ketones (U) [Mass/Vol] Negative Negat radha mg/dL [facility] Leukocyte esterase Auto test strip Ql (U) Negative Negative [facility] pH (U) 5.5 [pH] [facility] Specific gravity (U) [Rel density] 1.014 [facility] UrinalysisOrdered By: Georgie Vázquez on 04-14-2021 Bilirubin Ql (U) Negative Negative [facility] th Epithelial cells.squamous Auto (Urine sed) [#/Area] <1 [facility] Hemoglobin Auto test strip Ql (U) Small Abnormal Negative [facility] Interpretation and review of laboratory results Abnormal [facility] Mucus Auto (Urine sed) [#/Area] Rare None Seen, Rare /lpf [facility] Nitrite Auto test strip Ql (U) Negative Negative [facility] Protein (U) [Mass/Vol] 30 mg/dL Abnormal Negat radha mg/dL [facility] Comment on above: False positive resul ts may occur in urines with large amounts of hemoglobin, pH greater than 8.0, contrast medium, or disinfectants including ammonium compounds. Urobilinogen (U) [Mass/Vol] mg/dL <2.0 mg/dL [facility] WBC Auto (Urine sed) [#/Area] 1 [facility] Microscopic examinat ion is performed on all urinalysis samples and only positive findings are reported. The test for blood on the chemical analytic portion of urinalysis may also be positive due to hemoglobinuria and myoglobinuria and if red blood cells are present they are quantified by microscopic examination. [facility] Therapy Communicationon Therapy Communication Message RADHA SHAFER [...] secs on/20 off with lbs as tolerated. ANTENNA SPECIALIST can also manual distraction and soft tissue [...] code time is 50 minutes. Therapeutic exercise (71978): timed minutes 25, units 2 . UBE L2 3'fwd/3''bwd scap retraction 2x10 (X) bwd shoulder rolls 2x10 (X) UT stretch 20 x2 B (X) LS stretch 20 x2B (X) chin tucks supine 2x10 3 hold cervical rotation supine x10 each supine B ER pull aparts orange x10 (X) supine B H abd pull aparts orange x10 (X). Manual Therapy (62246): timed minutes 10, units 1 . STW to B UT, LS, SCM, paraspinals. Modalities: untimed minutes 15, units 1 . Intermittent Mechanical Traction: 20#/10# on 30/10 cycle x 15 mins 6step progressive/regressive. 'Scores and Scales' Signatures Electronically signed by : Eli Alexander, ANTENNA SPECIALIST; Apr 09 2021 4:58PM EST (Author) Electronically signed by : Elana Westbrook, PT; Apr 15 2021 9:11AM EST Normal [facility] PT Progress Noteon PT Progress Note Therapy [...] secs on/20 off with lbs as tolerated. ANTENNA SPECIALIST can also manual distraction and soft tissue [...] Patient continues to present with cervical tightness/restriction, ANTENNA SPECIALIST notes palpable increase in tissue density throughout [...] in clinic is 58 minutes. Therapeutic exercise (01469): timed minutes 30, units 2 . UBE L2 2'fwd/2'bwd scap retraction 2x10 bwd shoulder rolls 2x10 UT stretch 20 x2 B LS stretch 20 x2B chin tucks supine 2x10 3 hold cervical rotation supine x10 each supine B ER pull aparts orange x10 supine B H abd pull aparts orange x10. Manual Therapy (94165): timed minutes 10, units 1 . STW to B UT, LS, SCM, paraspinals. Modalities: untimed minutes 15, units 1 . Intermittent Mechanical Traction: 20#/10# on 30/10 cycle x 15 mins 6step progressive/regressive. 'Scores and Scales' Signatures Electronically signed by : River Sweeney ANTENNA SPECIALIST; Apr 01 2021 7:45AM EST (Author) Electronically signed by : Elana Westbrook, PT; Apr 06 2021 3:40PM EST Normal [facility] Therapy Communicationon 03-07 Therapy Communication Message RADHA SHAFER canceled today . Signatures Electronically signed by : Anjana Hernandez PTA; Mar 29 2021 2:14PM EST (Author) Normal [facility] PT Progress Noteon PT Progress Note Therapy [...] secs on/20 off with lbs as tolerated. ANTENNA SPECIALIST can also manual distraction and soft tissue [...] code time is 40 minutes. Therapeutic exercise (85065): timed minutes 30, units 2 . UBE L2 2'fwd/2'bwd scap retraction 2x10 bwd shoulder rolls 2x10 UT stretch 20 x2 B LS stretch 20 x2B chin tucks supine 2x10 3 hold cervical rotation supine x5 each supine B ER pull aparts orange x10 supine B H abd pull aparts orange x10. Manual Therapy (56845): timed minutes 10, units 1 . STW to B UT, LS, SCM, paraspinals. Modalities: untimed minutes 15, units 1 . Intermittent Mechanical Traction: 20#/10# on 30/10 cycle x 15 mins 6step progressive/regressive. 'Scores and Scales' Signatures Electronically signed by : River Sweeney, ANTENNA SPECIALIST; Mar 26 2021 4:31PM EST (Author) Electronically signed by : Elana Westbrook PT; Mar 31 2021 11:38AM EST Normal [facility] PT Progress Noteon 1 [...] secs on/20 off with lbs as tolerated. ANTENNA SPECIALIST can also manual distraction and soft tissue [...] code time is 38 minutes. Therapeutic exercise (39793): timed minutes 30, units 2 . UBE L2 2'fwd/2'bwd scap retraction 2x10 bwd shoulder rolls 2x10 UT stretch 20 x2 B LS stretch 20 x2B chin tucks supine 2x10 3 hold cervical rotation supine x5 each supine B ER pull aparts orange x10 supine B H abd pull aparts orange x10. Manual Therapy (19484): timed minutes 8, units 1 . STW to B UT, LS, SCM, paraspinals. Modalities: untimed minutes 14, units 1 . mechanical traction intermittent with 30 secs on/20 off with 20 lbs , 2 step, 50% rope speed. 'Scores and Scales' Signatures Electronically signed by : Anjana Hernandez ANTENNA SPECIALIST; Mar 24 2021 5:37PM EST (Author) Electronically signed by : Elana Westbrook PT; Mar 31 2021 11:38AM EST Normal [facility] PT Initial Evaluationon 03-06 PT Initial Evaluation Therapy Diagnosis Assessed Cervical [...] secs on/20 off with lbs as tolerated. ANTENNA SPECIALIST can also manual distraction and soft tissue [...] 1 Authorization not required after evaluation 11/1402-05-21 [place] cervicalgia/cervical radiculopathy precautions: needs inhaler, CKD stage 3. Rare deficiency cpt-2 - sugars aren't converted (more content not included)... Normal [facility] Therapy Communicationon 11-07 Therapy Communication Message RADHA SHAFER was (D/C)- last seen: . eval only-patient never called back to schedule, a VM was left at 1022am on 10-20-20. Will discharge at this tiem. Signatures Electronically signed by : Elana Westbrook PT; Nov 25 2020 7:37AM EST (Author) Normal [facility] [place] ORT LARGE JOINT ARTHROCEN TESISon 11-09-2020 John Marcial GRAIN CLEANER 11/09/2020 10:32 AM LG Jt Injection/Arthrocentesi s: R knee Performed by: Flori Rodrigues CNP Authorized by: Flori Rodrigues CNP CPT 46393 - Large Joint Arthrocentesis: Consent given by: [...] the procedure well with no immediate complications [facility] XR Knee Right 4+VWS (Note in Comments)on 11-09-2020 No acute right knee abnormality. Degenerative joint disease findings are present. Previous left knee replacement is noted. [facility]/S[facility] Workstation ID: [id number] [facility] EXAMINATION: XR KNEE RIGHT 4+ VIEWS (SPECIFY [...] replacement is noted without evidence displacement disruption. Keelvar, Rad In [facility] - 11/09/2020 11:05 AM EST EXAMINATION: XR [...] present. Previous left knee replacement is noted. [employer]/SensorCath Workstation ID: [id number] [facility] XR Knee Right 2 Views (Stand madeleine)on 11-02-2020 FINDINGS/ 1. Moderat e medial and patellofemoral compartment and mild lateral compartment osteoarthrosis is noted in the right knee, with joint space narrowing and small marginal osteophytes. Superior patellar enthesophyte is noted. 2. No fracture, malalignment, or other acute bony abnormality is seen. 3. Small right knee joint effusion is suspected. Workstation ID: [id number] [facility] EXAMINATION: XR KNEE RIGHT 2 VIEWS (STANDARD) 11/02/2020 1:48 pm HISTORY: ORDERING SYSTEM PROVIDED HISTORY: pain, TECHNOLOGIST PROVIDED HISTORY: Illness/Other Reason for exam: Right knee pain x 5 days Cancer History: thyroid Surgery, RadiationHistory: bilateral thyroidectomy Encounter Type: Initial Additional signs and symptoms: No known injury ORDERING SYSTEM PROVIDED DIAGNOSIS CODES: COMPARISON: 06/09/2013 Keelvar, Rad In [facility] - 11/02/2020 2:04 PM EST EXAMINATION: XR [...] joint effusion is suspected. Workstation ID: [id number] [facility] PT Initial Evaluationon PT Initial Evaluation Therapy [...] and shoulder-mild, but by end of day /-unsure if neck or shoulder. Pain Quality: aching. [...] wild horses). (more content not included)... Normal [facility] [place] ORT LARGE JOINT ARTHROCEN TESISon 09-15-2020 Rivas Jules MD 09/15/2020 3:06 PM Jt Injection/Arthrocentesi s: R subacromial bursa Performed by: Rivas Jules MD Authorized by: Rivas Jules MD CPT 77628 - Large Joint Arthrocentesis: Consent given by: Patient Timeout performed at: 09/15/2020 3:05 PM Physician or proceduralist has discussed critical or nonroutine steps, procedure duration and anticipated blood loss: Yes Supporting Documentation: Indications: Pain Procedure Details: Location: Shoulder Site: R subacromial bursa Needle size: 22 G Medications: 40 mg methylPREDNISolone acetate 40 mg/mL Anesthetic used: Lidocaine 1% [facility] XR Shoulder Right 1 Viewon 1 11-15-2019 Postsurgical and degenerative changes without acute osseous abnormality. Workstation ID: [id number] [facility] EXAMINATION: XR SHOULDER RIGHT 1 VIEW 09/15/2020 [...] subacromial spur. Calcifications overlie the right hemithorax. [facility] Interface, Rad In Fu ji Speechq - [...] without acute osseous abnormality. Workstation ID: [id number] [facility] Ultrasound ankle / brachial indices extremity completeon 05-15-2020 Patient Info Name: RADHA SHAFER Age: 60 years : 1960 Gender: Female Exam Date: 05/15/2020 2:11 PM Site Location: [facility] Patient Status: Outpatient Staff Ordering Physician: ELANA PENA It Applications Analyst: Kia Peacock RVT Referring Physician: ELANA PENA ; Indications I73.9 - Peripheral vascular disease, unspecified Procedure Description 56223 Limited bilateral noninvasive physiologic studies of upper [...] tobacco use-previous. . Report Signatures Finalized by AKASH Martinez MD on 05/15/2020 05:02 PM [facility] Interface, Rad In [facility]ch[facility] - 05/15/2020 5:03 PM EDT Patient Info Name: RADHA SHAFER Age: 60 years : 1960 Gender: Female Exam Date: 05/15/2020 2:11 PM Site Location: [facility] Patient Status: Outpatient Staff Ordering Physician: ELANA PENA It Applications Analyst: Kia Peacock RVT Referring Physician: ELANA PENA ; Indications I73.9 - Peripheral vascular disease, unspecified Procedure Description 67695 Limited bilateral noninvasive physiologic studies of upper [...] tobacco use-previous. . Report Signatures Finalized by AKASH Martinez MD on 05/15/2020 05:02 PM [facility] XR Foot 3+ Views Righton XR Foot 3+ Views Right Exam Date/Time: 07/24/2019 16:05 EDT Reason for Exam: pain in right foot Report STUDY: XR Foot 3+ Views Right; 07/24/2019 4:05 pm INDICATION: pain in right foot. COMPARISON: None. ACCESSION NUMBER(S): [id number] ORDERING CLINICIAN: Rusty Dozier TECHNIQUE: Three views [...] Signed by: Uriah Elizalde MD Technologist: [facility] ECHOCARDIOGRAM COMPLETEon Transthoracic Echocardiogram _ Patient: HOLLIS Benitez [facility] Rec#: [id number] (Age): 1960(59y) Height: 165.1(cm)/64(in Study Date: 05/07/2019 Weight: 93.44(kg)/206(l Room#: MOB BSA: [id number] Type: Outpatient Loc: Echo Room 1 Sex: F _ Reading: Eleonora Sawyer MD Referring: WHITLEY Kaufman M.D. It Applications Analyst: Rina Shay RN, REINA History: Cancer. -thyroidCOPD. [...] at 05/07/2019 16:22:37 by: Eleonora Sawyer MD [facility] Interface, Rad In [facility]ch[facility] - 05/07/2019 4:40 PM EDT Transthoracic Echocardiogram _ Patient: HOLLIS Benitez [facility] Rec#: [id number] (Age): 1960(59y) Height: 165.1(cm)/64(in Study Date: 05/07/2019 Weight: 93.44(kg)/206(l Room#: MOB BSA: [id number] Type: Outpatient Loc: Echo Room 1 Sex: F _ Reading: Eleonora Sawyer MD Referring: DR PENA [facility] Health[facility]IT[facility] MARTINEZ M.D. It Applications Analyst: Rina Shay RN, [facility] History: Cancer. -thyroidCOPD. Hypertension. Hypothyroidism. Renal insufficiency. [...] none ILSA (continuity Vmax) 3.04 cm2 none ILAS (continuity Vmax) index 1.52 cm2/m2 none ILSA [...] at 05/07/2019 16:22:37 by: Eleonora Sawyer MD [facility] Otheron 05-07-2019 Extra Tube Hold for add-ons. [facility] Comment on above: Auto resulted. ECG 12-LEADon 04-05-2019 Atrial Rate [facility] P Wiggins [facility] P-R Interval [facility] Q-T Interval [facility] Q-T Interval (corrected) [facility] QRS Duration [facility] QTC Calculation (Bezet) [facility] R Wiggins [facility] T Wiggins [facility] Ventricular Rate [facility] Albuminon 02-13-2019 Albumin [Mass/Vol] 4.0 g/dL Normal 3.4-5.0 [facility] Comment on above: Performed By: #### 2 [id number] #### BRE[facility] [address] [place] [address] BUNon 02-13-2019 Urea nitrogen [Mass/Vol] 23 mg/dL Normal 6-23 [facility] Comment on above: Performed By: #### 2 [id number] #### BRE[facility] [address] [place] [address] Calciumon 02-13-2019 Calcium [Mass/Vol] 9.1 mg/dL Normal 8.6-10.3 [facility] Comment on above: Performed By: #### 2 [id number] #### [facility] [address] [place] [address] Creatinineon 02-13-2019 Creatinine [Mass/Vol] 1.4 mg/dL High 0.5-1.1 [facility] Comment on above: Performed By: #### 2 [id number] #### [facility] [address] [place] [address] Hct & Hgbon 02-13-2019 Hematocrit (Bld) [Volume fraction] 38.3 % Normal 36.0-48.0 [facility] Comment on above: Performed By: #### 1 [id number] #### BREANA [facility] [address] [place] [address] Hemoglobin (Bld) [Mass/Vol] 12.1 g/dL Normal 12.0-16.0 [facility] Comment on above: Performed By: #### 1 [id number] #### BREANA [facility] [address] [place] [address] Lyteson 02-13-2019 Anion gap [Moles/Vol] 11 mmol/L Normal 10-20 [facility] Comment on above: Performed By: #### 2 [id number] #### [facility] [address] [place] [address] Chloride [Moles/Vol] 103 mmol/L Normal 98-107 [facility] Comment on above: Performed By: #### 2 [id number] #### [facility] [address] [place] [address] CO2 [Moles/Vol] 28.0 mmol/L Normal 21.0-32.0 [facility] [facility] Comment on above: Performed By: #### 2 [id number] #### [employer] [employer] [address] [place] [address] Potassium [Moles/Vol] 4.8 mmol/L Normal 3.5-5.3 [facility] Comment on above: Performed By: #### 2 [id number] #### [employer] [address] [place] [address] Sodium [Moles/Vol] 137 mmol/L Normal 136-145 [facility] Comment on above: Performed By: #### 2 [id number] #### [employer] [facility] [place] [address] Phosphoruson 02-13-2019 Phosphate [Mass/Vol] 4.0 mg/dL Normal 2.5-4.9 [facility] Comment on above: Performed By: #### 2 [id number] #### [employer] [facility] [place] [address] U Creatinineon 02-13-2019 U Creatinine 39 mg/dL Normal 20-300 [facility] Comment on above: Performed By: #### 2 [id number] #### [employer] [facility] [place] [address] U Proteinon 02-13-2019 Protein [Mass/Vol] 18 mg/dL High 1-14 [facility] Comment on above: Performed By: #### 1 [id number] #### BREANA [employer] [facility] [place] [address] eGFRon 02-13-2019 GFR/1.73 sq M predicted among non-blacks MDRD (S/P/Bld) [Vol rate/Area] 45 mL/min/1.73 m2 [facility] Comment on above: Order Comment: Order added by Discern Expert. Performed By: #### 1 [id number] #### [employer] [employer] [facility] [place] [address] GFR/1.73 sq M predicted among non-blacks MDRD (S/P/Bld) [Vol rate/Area] 37 mL/min/1.73 m2 Normal [facility] Comment on above: Order Comment: Order added by Discern Expert. Performed By: #### 1 [id number] #### [employer] [employer] [facility] [place] [address] XR Hip 2-3 Views Right + Pel vison 01-24-2019 XR Hip 2-3 Views Right + Pelvis Exam Date/Time: 01/23/2019 13:20 EDT Reason for Exam: pain in right hip Report STUDY: XR Hip 2-3 Views Right + Pelvis;; 01/23/2019 1:20 pm INDICATION: pain in right hip. COMPARISON: None. ACCESSION NUMBER(S): [id number] ORDERING CLINICIAN: Rusty Dozier FINDINGS: Pelvis and [...] pm Signed by: Jair Santos MD Technologist: DAVEY Normal [facility] Comprehensive Metabolic Pane jett 12-01-2018 Albumin mass conc 3.0 g/dL Low 3.2-5.2 [facility] Comment on above: Performed By: #### C BCWOD, PT, PTT, DDIMR, EDCTNI, NTPROBNP, CHEM8, LIPASE, CMETADD #### Unless otherwise noted, all testing performed by [facility] [address] [address] CLIA: [id number] [employer]: Maurice Coello M.D. ALP enzyme act/vol 88 U/L Normal 40-150 [facility] Comment on above: Performed By: #### C BCWOD, PT, PTT, DDIMR, EDCTNI, NTPROBNP, CHEM8, LIPASE, CMETADD #### Unless otherwise noted, all testing performed by [facility] [address] [address] CLIA: [id number] [employer]: Maurice Coello M.D. ALT enzyme act/vol 34 U/L Normal 14-65 [facility] Comment on above: Result Comment: This test result might be falsely depressed or falsely elevated on samples drawn from patients taking Sulfasalazine and Sulfapyridine. Venipuncture should occur prior to taking either of these drugs. Performed By: #### C BCWOD, PT, PTT, DDIMR, EDCTNI, NTPROBNP, CHEM8, LIPASE, CMETADD #### Unless otherwise noted, all testing performed by [place] [address] CLIA: [id number] [employer]: Maurice Coello M.D. AST enzyme act/vol 67 U/L High 0-45 [facility] Comment on above: Result Comment: This test result might be falsely depressed or falsely elevated on samples drawn from patients taking Sulfasalazine and Sulfapyridine. Venipuncture should occur prior to taking either of these drugs. Performed By: #### C BCWOD, PT, PTT, DDIMR, EDCTNI, NTPROBNP, CHEM8, LIPASE, CMETADD #### Unless otherwise noted, all testing performed by [place] [phone] CLIA: [id number] [employer]: Maurice Coello M.D. Bilirubin mass conc 0.3 mg/dL Normal 0.3-1.2 [facility] Comment on above: Performed By: #### C BCWOD, PT, PTT, DDIMR, EDCTNI, NTPROBNP, CHEM8, LIPASE, CMETADD #### Unless otherwise noted, all testing performed by [place] [address] CLIA: [id number] [employer]: Maurice Coello M.D. Calcium mass conc 8.6 mg/dL Normal 8.4-10.2 [facility] Comment on above: Performed By: #### C BCWOD, PT, PTT, DDIMR, EDCTNI, NTPROBNP, CHEM8, LIPASE, CMETADD #### Unless otherwise noted, all testing performed by [facility] [place] [address] CLIA: [id number] [employer]: Maurice Coello M.D. Chloride molar conc 112 mmol/L High 98-108 [facility] Comment on above: Performed By: #### C BCWOD, PT, PTT, DDIMR, EDCTNI, NTPROBNP, CHEM8, LIPASE, CMETADD #### Unless otherwise noted, all testing performed by [place] [address] CLIA: [id number] [employer]: Maurice Coello M.D. CO2 molar conc 21 mmol/L Normal 21-32 [facility] Comment on above: Performed By: #### C BCWOD, PT, PTT, DDIMR, EDCTNI, NTPROBNP, CHEM8, LIPASE, CMETADD #### Unless otherwise noted, all testing performed by [place] [address] CLIA: [id number] [employer]: Maurice Coello M.D. Creatinine mass conc 1.28 mg/dL High 0.40-1.[address] [facility] Comment on above: Performed By: #### C BCWOD, PT, PTT, DDIMR, EDCTNI, NTPROBNP, CHEM8, LIPASE, CMETADD #### Unless otherwise noted, all testing performed by [place] [address] CLIA: [id number] [employer]: Maurice Coello M.D. GFR/1.73 sq M predicted among blacks MDRD vol rate/area (S/P/Bld) 51 mL/min/{1.73_m2} Low >60 [facility] Comment on above: Result Comment: Afri can Marshallese GFR Calc Performed By: #### C BCWOD, PT, PTT, DDIMR, EDCTNI, NTPROBNP, CHEM8, LIPASE, CMETADD #### Unless otherwise noted, all testing performed by [place] [address] CLIA: [id number] [employer]: Maurice Coello M.D. GFR/1.73 sq M predicted among non-blacks MDRD vol rate/area (S/P/Bld) 42 mL/min/{1.73_m2} Low >[address] [facility] Comment on above: Result Comment: Non- [...] Unless otherwise noted, all testing performed by [place] [address] CLIA: [id number] [employer]: Maurice Coello M.D. Glucose mass conc 88 mg/dL Normal 70-99 [facility] Comment on above: Result Comment: This test result might be falsely depressed or falsely elevated on samples drawn from patients taking Sulfasalazine and Sulfapyridine. Venipuncture should occur prior to taking either of these drugs. Performed By: #### C BCWOD, PT, PTT, DDIMR, EDCTNI, NTPROBNP, CHEM8, LIPASE, CMETADD #### Unless otherwise noted, all testing performed by [place] [address] CLIA: [id number] [employer]: Maurice Coello M.D. Potassium molar conc 4.0 mmol/L Normal 3.5-5.[address] [facility] Comment on above: Performed By: #### C BCWOD, PT, PTT, DDIMR, EDCTNI, NTPROBNP, CHEM8, LIPASE, CMETADD #### Unless otherwise noted, all testing performed by [place] [address] CLIA: [id number] [employer]: Maurice Coello M.D. Protein mass conc 7.0 g/dL Normal 6.0-8.0 [facility] Comment on above: Performed By: #### C BCWOD, PT, PTT, DDIMR, EDCTNI, NTPROBNP, CHEM8, LIPASE, CMETADD #### Unless otherwise noted, all testing performed by [place] [address] CLIA: [id number] [employer]: Maurice Coello M.D. Sodium molar conc 139 mmol/L Normal 135-145 [facility] Comment on above: Performed By: #### C BCWOD, PT, PTT, DDIMR, EDCTNI, NTPROBNP, CHEM8, LIPASE, CMETADD #### Unless otherwise noted, all testing performed by [place] [address] CLIA: [id number] [employer]: Maurice Coello M.D. Urea nitrogen mass conc 7 mg/dL Low 8-25 [facility] Comment on above: Performed By: #### C BCWOD, PT, PTT, DDIMR, EDCTNI, NTPROBNP, CHEM8, LIPASE, CMETADD #### Unless otherwise noted, all testing performed by [place] [address] CLIA: [id number] [employer]: Maurice Mode, M.D. BUN and Creatinineon 019 Creatinine mass conc 1.44 mg/dL High 0.40-1.[address] [facility] Comment on above: Performed By: #### C BCWOD, PT, PTT, DDIMR, EDCTNI, NTPROBNP, CHEM8, LIPASE, CMETADD #### Unless otherwise noted, all testing performed by [place] [address] CLIA: [id number] [employer]: Maurice Coello M.D. GFR/1.73 sq M predicted among blacks MDRD vol rate/area (S/P/Bld) 45 mL/min/{1.73_m2} Low >60 [facility] Comment on above: Result Comment: Afri can Marshallese GFR Calc Performed By: #### C BCWOD, PT, PTT, DDIMR, EDCTNI, NTPROBNP, CHEM8, LIPASE, CMETADD #### Unless otherwise noted, all testing performed by [place] [address] CLIA: [id number] [employer]: Maurice Coello M.D. GFR/1.73 sq M predicted among non-blacks MDRD vol rate/area (S/P/Bld) 37 mL/min/{1.73_m2} Low >[address] [facility] Comment on above: Result Comment: Non- [...] Unless otherwise noted, all testing performed by [place] [address] CLIA: [id number] [employer]: Maurice Coello M.D. Urea nitrogen mass conc 13 mg/dL Normal 06-30 [facility] Comment on above: Performed By: #### C BCWOD, PT, PTT, DDIMR, EDCTNI, NTPROBNP, CHEM8, LIPASE, CMETADD #### Unless otherwise noted, all testing performed by [address] [address] CLIA: [id number] [employer]: Maurice Coello M.D. C. difficile Assayon 019 C. difficile interpretation Negative Normal [facility] Comment on above: Result Comment: Rapi d test procedural control acceptable. Performed By: #### C BCWOD, PT, PTT, DDIMR, EDCTNI, NTPROBNP, CHEM8, LIPASE, CMETADD #### Unless otherwise noted, all testing performed by [address] [address] CLIA: [id number] [employer]: Maurice Coello M.D. CT ABDO,PELVIS W/O CONTRASTo n 11-30-2018 CT ABDO,PELVIS W/O CONTRAST Final Report Accession No: [id number] Performed: Nov 30 2018 11:24AM Examination: [...] PERKINS D.O. Trans: mh : cc: Normal [facility] Culture, Stoolon 11-30-2018 Culture, Stool Test Name: Culture, Stool Culture Status: Final Culture Report: Lack of Normal Dawna Noted. No Salmonella, Shigella, Yersinia, or Campylobacter isolated. Micro Source: Stool Shiga Toxin 1: Insufficient growth to perform test. Shiga Toxin 2: Insufficient growth to perform test. Normal [facility] Comment on above: Performed By: #### C BCWOD, PT, PTT, DDIMR, EDCTNI, NTPROBNP, CHEM8, LIPASE, CMETADD #### Unless otherwise noted, all testing performed by [place] [address] [address] [place], [place] [address] CLIA: [id number] [employer]: Maurice Coello M.D. Gram Stainon 11-30-2018 Microscopic observation Gram stain Nom (Unsp spec) Test Name: Gram Stain Culture Status: Final Gram Stain: No WBC's Many mixed bowel dawna. Normal F [facility] Comment on above: Performed By: #### C BCWOD, PT, PTT, DDIMR, EDCTNI, NTPROBNP, CHEM8, LIPASE, CMETADD #### Unless otherwise noted, all testing performed by [place] [address] CLIA: [id number] [employer]: Maurice Coello M.D. Lactic Acidon 11-30-2018 Lactate molar conc 0.8 mmol/L Normal 0.6-2.0 [facility] Comment on above: Performed By: #### C BCWOD, PT, PTT, DDIMR, EDCTNI, NTPROBNP, CHEM8, LIPASE, CMETADD #### Unless otherwise noted, all testing performed by [place] [address] CLIA: [id number] [employer]: Maurice Coello M.D. Progress Noteon 11-30-2018 [place] [address] NAME RADHA [facility] [id number] 1960 DATE PROGRESS NOTE ORTHOPEDIC PROGRESS NOTE [...] aspiration and followup of this left knee. MD Krzysztof HENDERSON 11/30/2018 12:22 [id number] T 11/30/2018 13:43 MCB/MODL Electronically Signed By Maycol Alvarado M.D. on 01 Dec 2018 15:44:03 GMT Normal [facility] Specimen Acceptable (CDIF)on 11-30-2018 Specimen Acceptable (CDIF) YES Normal [facility] Comment on above: Result Comment: C. d ifficile testing result(s) to follow. Performed By: #### C BCWOD, PT, PTT, DDIMR, EDCTNI, NTPROBNP, CHEM8, LIPASE, CMETADD #### Unless otherwise noted, all testing performed by [address] [address] CLIA: [id number] [employer]: Maurice Coello M.D. BUN and Creatinineon 019 Creatinine mass conc 1.26 mg/dL High 0.40-1.[address] [facility] Comment on above: Performed By: #### C BCWOD, PT, PTT, DDIMR, EDCTNI, NTPROBNP, CHEM8, LIPASE, CMETADD #### Unless otherwise noted, all testing performed by [place] [address] CLIA: [id number] [employer]: Maurice Coello M.D. GFR/1.73 sq M predicted among blacks MDRD vol rate/area (S/P/Bld) 52 mL/min/{1.73_m2} Low >60 [facility] Comment on above: Result Comment: Afri can Marshallese GFR Calc Performed By: #### C BCWOD, PT, PTT, DDIMR, EDCTNI, NTPROBNP, CHEM8, LIPASE, CMETADD #### Unless otherwise noted, all testing performed by [place] [address] CLIA: [id number] [employer]: Maurice Coello M.D. GFR/1.73 sq M predicted among non-blacks MDRD vol rate/area (S/P/Bld) 43 mL/min/{1.73_m2} Low >[address] [facility] Comment on above: Result Comment: Non- [...] Unless otherwise noted, all testing performed by [place] [address] CLIA: [id number] [employer]: Maurice Coello M.D. Urea nitrogen mass conc 10 mg/dL Normal 8-25 [facility] Comment on above: Performed By: #### C BCWOD, PT, PTT, DDIMR, EDCTNI, NTPROBNP, CHEM8, LIPASE, CMETADD #### Unless otherwise noted, all testing performed by [place] [address] CLIA: [id number] [employer]: Maurice Coello M.D. CBC with Diffon 11-28-2018 Basophils #/vol (Bld) 0.1 K/mcL Normal 0-0.2 [facility] Comment on above: Performed By: #### C BCWOD, PT, PTT, DDIMR, EDCTNI, NTPROBNP, CHEM8, LIPASE, CMETADD #### Unless otherwise noted, all testing performed by [place] [address] CLIA: [id number] [employer]: Maurice Coello M.D. Basophils/100 WBC (Bld) 0.9 % Normal [facility] Comment on above: Performed By: #### C BCWOD, PT, PTT, DDIMR, EDCTNI, NTPROBNP, CHEM8, LIPASE, CMETADD #### Unless otherwise noted, all testing performed by [place] [address] CLIA: [id number] [employer]: Maurice Coello M.D. Eosinophils #/vol (Bld) 0.1 K/mcL Normal 0-0.5 [facility] Comment on above: Performed By: #### C BCWOD, PT, PTT, DDIMR, EDCTNI, NTPROBNP, CHEM8, LIPASE, CMETADD #### Unless otherwise noted, all testing performed by [place] [address] CLIA: [id number] [employer]: Maurice Coello M.D. Eosinophils/100 WBC (Bld) 1.5 % Normal [facility] Comment on above: Performed By: #### C BCWOD, PT, PTT, DDIMR, EDCTNI, NTPROBNP, CHEM8, LIPASE, CMETADD #### Unless otherwise noted, all testing performed by [place] [address] CLIA: [id number] [employer]: Maurice Coello M.D. Erythrocyte distribution width Ratio (RBC) 16.8 % High 10.0-14.4 [facility] Comment on above: Performed By: #### C BCWOD, PT, PTT, DDIMR, EDCTNI, NTPROBNP, CHEM8, LIPASE, CMETADD #### Unless otherwise noted, all testing performed by [place] [address] CLIA: [id number] [employer]: Maurice Coello M.D. Hematocrit Volume Fraction (Bld) 32.8 % Low 34.4-44.8 [facility] Comment on above: Performed By: #### C BCWOD, PT, PTT, DDIMR, EDCTNI, NTPROBNP, CHEM8, LIPASE, CMETADD #### Unless otherwise noted, all testing performed by [place] [address] CLIA: [id number] [employer]: Maurice Coello M.D. Hemoglobin mass conc (Bld) 10.8 g/dL Low 11.6-15.4 [facility] Comment on above: Performed By: #### C BCWOD, PT, PTT, DDIMR, EDCTNI, NTPROBNP, CHEM8, LIPASE, CMETADD #### Unless otherwise noted, all testing performed by [place] [address] CLIA: [id number] [employer]: Maurice Mdoe, M.D. Lymphocytes #/vol (Bld) 1.8 K/mcL Normal 1.0-3.7 [facility] Comment on above: Performed By: #### C BCWOD, PT, PTT, DDIMR, EDCTNI, NTPROBNP, CHEM8, LIPASE, CMETADD #### Unless otherwise noted, all testing performed by [place] [address] CLIA: [id number] [employer]: Maurice Coello M.D. Lymphocytes/100 WBC (Bld) 20.7 % Normal [facility] Comment on above: Performed By: #### C BCWOD, PT, PTT, DDIMR, EDCTNI, NTPROBNP, CHEM8, LIPASE, CMETADD #### Unless otherwise noted, all testing performed by [place] [address] CLIA: [id number] [employer]: Maurice Coello M.D. MCH Entitic mass (RBC) 25.3 pg Low 27.9-33.9 [facility] Comment on above: Performed By: #### C BCWOD, PT, PTT, DDIMR, EDCTNI, NTPROBNP, CHEM8, LIPASE, CMETADD #### Unless otherwise noted, all testing performed by [place] [address] CLIA: [id number] [employer]: Maurice Coello M.D. MCHC mass conc (RBC) 33.0 g/dL Low 33.1-35.[address] [facility] Comment on above: Performed By: #### C BCWOD, PT, PTT, DDIMR, EDCTNI, NTPROBNP, CHEM8, LIPASE, CMETADD #### Unless otherwise noted, all testing performed by [place] [address] CLIA: [id number] [employer]: Maurice Coello M.D. MCV Entitic volume (RBC) 76.7 fL Low 82.6-98.9 [facility] Comment on above: Performed By: #### C BCWOD, PT, PTT, DDIMR, EDCTNI, NTPROBNP, CHEM8, LIPASE, CMETADD #### Unless otherwise noted, all testing performed by [place] [address] CLIA: [id number] [employer]: Maurice Coello M.D. Monocytes #/vol (Bld) 0.7 K/mcL High 0.1-0.6 [facility] Comment on above: Performed By: #### C BCWOD, PT, PTT, DDIMR, EDCTNI, NTPROBNP, CHEM8, LIPASE, CMETADD #### Unless otherwise noted, all testing performed by [place] [address] CLIA: [id number] [employer]: Maurice Coello M.D. Monocytes/100 WBC (Bld) 8.1 % Normal [facility] Comment on above: Performed By: #### C BCWOD, PT, PTT, DDIMR, EDCTNI, NTPROBNP, CHEM8, LIPASE, CMETADD #### Unless otherwise noted, all testing performed by [place] [address] CLIA: [id number] [employer]: Maurice Coello M.D. Neutrophils #/vol (Bld) 5.8 K/mcL Normal 1.2-6.9 [facility] Comment on above: Performed By: #### C BCWOD, PT, PTT, DDIMR, EDCTNI, NTPROBNP, CHEM8, LIPASE, CMETADD #### Unless otherwise noted, all testing performed by [place] [address] CLIA: [id number] [employer]: Maurice Coello M.D. Platelet mean volume Entitic volume (Bld) 8.7 fL Normal 7.0-10.6 [facility] Comment on above: Performed By: #### C BCWOD, PT, PTT, DDIMR, EDCTNI, NTPROBNP, CHEM8, LIPASE, CMETADD #### Unless otherwise noted, all testing performed by [place] [address] CLIA: [id number] [employer]: Maurice Coello M.D. Platelets #/vol (Bld) 274 K/mcL Normal 162-402 [facility] Comment on above: Performed By: #### C BCWOD, PT, PTT, DDIMR, EDCTNI, NTPROBNP, CHEM8, LIPASE, CMETADD #### Unless otherwise noted, all testing performed by [place] [address] CLIA: [id number] [employer]: Maurice Coello M.D. RBC #/vol (Bld) 4.28 M/mcL Normal 3.7-5.0 [facility] Comment on above: Performed By: #### C BCWOD, PT, PTT, DDIMR, EDCTNI, NTPROBNP, CHEM8, LIPASE, CMETADD #### Unless otherwise noted, all testing performed by [place] [address] CLIA: [id number] [employer]: Maurice Coello M.D. Segmented Neut % 68.8 % Normal [facility] Comment on above: Performed By: #### C BCWOD, PT, PTT, DDIMR, EDCTNI, NTPROBNP, CHEM8, LIPASE, CMETADD #### Unless otherwise noted, all testing performed by [place] [address] CLIA: [id number] [employer]: Maurice Coello M.D. WBC #/vol (Bld) 8.5 K/mcL Normal 3.4-10.6 [facility] Comment on above: Performed By: #### C BCWOD, PT, PTT, DDIMR, EDCTNI, NTPROBNP, CHEM8, LIPASE, CMETADD #### Unless otherwise noted, all testing performed by [place] [phone] CLIA: [id number] [employer]: Maurice Coello M.D. CHEMG (Basic Metabolic and M g)on 11-28-2018 Calcium mass conc 8.1 mg/dL Low 8.4-10.2 [facility] Comment on above: Performed By: #### C BCWOD, PT, PTT, DDIMR, EDCTNI, NTPROBNP, CHEM8, LIPASE, CMETADD #### Unless otherwise noted, all testing performed by [place] [address] CLIA: [id number] [employer]: Maurice Coello M.D. Chloride molar conc 106 mmol/L Normal 98-108 [facility] Comment on above: Performed By: #### C BCWOD, PT, PTT, DDIMR, EDCTNI, NTPROBNP, CHEM8, LIPASE, CMETADD #### Unless otherwise noted, all testing performed by [place] [address] CLIA: [id number] [employer]: Maurice Coello M.D. CO2 molar conc 28 mmol/L Normal 21-32 [facility] Comment on above: Performed By: #### C BCWOD, PT, PTT, DDIMR, EDCTNI, NTPROBNP, CHEM8, LIPASE, CMETADD #### Unless otherwise noted, all testing performed by [place] [address] CLIA: [id number] [employer]: Maurice Coello M.D. Creatinine mass conc 1.51 mg/dL High 0.40-1.[address] [facility] Comment on above: Performed By: #### C BCWOD, PT, PTT, DDIMR, EDCTNI, NTPROBNP, CHEM8, LIPASE, CMETADD #### Unless otherwise noted, all testing performed by [place] [address] CLIA: [id number] [employer]: Maurice Coello M.D. GFR/1.73 sq M predicted among blacks MDRD vol rate/area (S/P/Bld) 42 mL/min/{1.73_m2} Low >60 [facility] Comment on above: Result Comment: Afri can Marshallese GFR Calc Performed By: #### C BCWOD, PT, PTT, DDIMR, EDCTNI, NTPROBNP, CHEM8, LIPASE, CMETADD #### Unless otherwise noted, all testing performed by [place] [address] CLIA: [id number] [employer]: Maurice Coello M.D. GFR/1.73 sq M predicted among non-blacks MDRD vol rate/area (S/P/Bld) 35 mL/min/{1.73_m2} Low >[address] [facility] Comment on above: Result Comment: Non- [...] Unless otherwise noted, all testing performed by [place] [address] CLIA: [id number] [employer]: Maurice Coello M.D. Glucose mass conc 91 mg/dL Normal 70-99 [facility] Comment on above: Result Comment: This test result might be falsely depressed or falsely elevated on samples drawn from patients taking Sulfasalazine and Sulfapyridine. Venipuncture should occur prior to taking either of these drugs. Performed By: #### C BCWOD, PT, PTT, DDIMR, EDCTNI, NTPROBNP, CHEM8, LIPASE, CMETADD #### Unless otherwise noted, all testing performed by [place] [address] CLIA: [id number] [employer]: Maurice Coello M.D. Magnesium mass conc 2.0 mg/dL Normal 1.6-2.4 [facility] Comment on above: Performed By: #### C BCWOD, PT, PTT, DDIMR, EDCTNI, NTPROBNP, CHEM8, LIPASE, CMETADD #### Unless otherwise noted, all testing performed by [place] [address] CLIA: [id number] [employer]: Maurice Coello M.D. Potassium molar conc 4.4 mmol/L Normal 3.5-5.[address] [facility] Comment on above: Performed By: #### C BCWOD, PT, PTT, DDIMR, EDCTNI, NTPROBNP, CHEM8, LIPASE, CMETADD #### Unless otherwise noted, all testing performed by [place] [address] CLIA: [id number] [employer]: Maurice Coello M.D. Sodium molar conc 137 mmol/L Normal 135-145 [facility] Comment on above: Performed By: #### C BCWOD, PT, PTT, DDIMR, EDCTNI, NTPROBNP, CHEM8, LIPASE, CMETADD #### Unless otherwise noted, all testing performed by [place] [address] CLIA: [id number] [employer]: Maurice Coello M.D. Urea nitrogen mass conc 14 mg/dL Normal 8-25 [facility] Comment on above: Performed By: #### C BCWOD, PT, PTT, DDIMR, EDCTNI, NTPROBNP, CHEM8, LIPASE, CMETADD #### Unless otherwise noted, all testing performed by [place] [address] CLIA: [id number] [employer]: Maurice Coello M.D. Cell Count, Body Fluidon Character, B.F. Cloudy Abnormal Clear [facility] Comment on above: Performed By: #### C BCWOD, PT, PTT, DDIMR, EDCTNI, NTPROBNP, CHEM8, LIPASE, CMETADD #### Unless otherwise noted, all testing performed by [place] [address] CLIA: [id number] [employer]: Maurice Coello M.D. Color, Body Fl. Yellow Normal [facility] [place] Comment on above: Performed By: #### C BCWOD, PT, PTT, DDIMR, EDCTNI, NTPROBNP, CHEM8, LIPASE, CMETADD #### Unless otherwise noted, all testing performed by [place] [address] CLIA: [id number] [employer]: Maurice Coello M.D. Lymphocytes/100 WBC (Bld) 7.0 % Normal [facility] Comment on above: Result Comment: Syno vial fld. Lymph% ref. range is <75%. Performed By: #### C BCWOD, PT, PTT, DDIMR, EDCTNI, NTPROBNP, CHEM8, LIPASE, CMETADD #### Unless otherwise noted, all testing performed by [place] [phone] CLIA: [id number] [employer]: Maurice Coello M.D. Amador/Macrophage 26.0 % Normal [facility] [place] Comment on above: Result Comment: Syno vial fld. monocyte/macrophage% ref. range is <70%. Performed By: #### C BCWOD, PT, PTT, DDIMR, EDCTNI, NTPROBNP, CHEM8, LIPASE, CMETADD #### Unless otherwise noted, all testing performed by [place] [address] CLIA: [id number] [employer]: aMurice Coello M.D. RBC #/vol (Bld) 4014 /mcL Normal [facility] [place] Comment on above: Result Comment: Syno vial fld. RBC ref. range is 0/mcL. Performed By: #### C BCWOD, PT, PTT, DDIMR, EDCTNI, NTPROBNP, CHEM8, LIPASE, CMETADD #### Unless otherwise noted, all testing performed by [place] [address] CLIA: [id number] [employer]: Maurice Coello M.D. Seg, Body Fl. 67.0 % Normal [facility] Comment on above: Result Comment: Syno vial fld. Seg% ref. range is <25%. Performed By: #### C BCWOD, PT, PTT, DDIMR, EDCTNI, NTPROBNP, CHEM8, LIPASE, CMETADD #### Unless otherwise noted, all testing performed by [place] [address] CLIA: [id number] [employer]: Maurice Coello M.D. Spec. Type, B.F. Synovial Fluid Normal [facility] Comment on above: Performed By: #### C BCWOD, PT, PTT, DDIMR, EDCTNI, NTPROBNP, CHEM8, LIPASE, CMETADD #### Unless otherwise noted, all testing performed by [place] [address] CLIA: [id number] [employer]: Maurice Coello M.D. WBC #/vol (Bld) 04519 /mcL Normal [facility] [place] Comment on above: Result Comment: Syno vial fld. WBC ref. range is 0-200/mcL. Performed By: #### C BCWOD, PT, PTT, DDIMR, EDCTNI, NTPROBNP, CHEM8, LIPASE, CMETADD #### Unless otherwise noted, all testing performed by [place] [address] CLIA: [id number] [employer]: Maurice Coello M.D. Crystals, Syn Fldon 11-28-19 19 Crystal, Intra None Seen Normal None Seen [facility] Comment on above: Performed By: #### C BCWOD, PT, PTT, DDIMR, EDCTNI, NTPROBNP, CHEM8, LIPASE, CMETADD #### Unless otherwise noted, all testing performed by [place] [address] CLIA: [id number] [employer]: Maurice Coello M.D. Crystals, Extra None Seen Normal None Seen [facility] [place] Comment on above: Performed By: #### C BCWOD, PT, PTT, DDIMR, EDCTNI, NTPROBNP, CHEM8, LIPASE, CMETADD #### Unless otherwise noted, all testing performed by [place] [address] CLIA: [id number] [employer]: Maurice Coello M.D. Culture, Acid-Faston Culture, Acid-Fast Test Name: Culture, Acid-Fast Site: Left knee (tka) Culture Status: Final Culture Report: No Acid-Fast Bacillus isolated after 8 weeks. Acid-Fast Smear: No Acid-Fast Bacillus seen on smear. Micro Source: Synovial Fluid Normal [facility] Comment on above: Performed By: #### C BCWOD, PT, PTT, DDIMR, EDCTNI, NTPROBNP, CHEM8, LIPASE, CMETADD #### Unless otherwise noted, all testing performed by [place] [address] CLIA: [id number] [employer]: Maurice Coello M.D. Culture, Anaerobicon Culture, Anaerobic Test Name: Culture, Anaerobic Site: left knee (TKA) Culture Status: Final Culture Report: No anaerobes isolated. Micro Source: Synovial Fluid Normal [facility] Comment on above: Performed By: #### C BCWOD, PT, PTT, DDIMR, EDCTNI, NTPROBNP, CHEM8, LIPASE, CMETADD #### Unless otherwise noted, all testing performed by [place] [address] CLIA: [id number] [employer]: Maurice Coello M.D. Culture, Fungus,Otheron 11-07 Culture, Fungus,Other Test Name: Culture , Fungus,Other Site: left knee (tka) Culture Status: Final Culture Report: No Fungi isolated after 6 weeks. CATERINA Prep: No Fungal Elements Seen Micro Source: Synovial Fluid Normal [facility] Comment on above: Performed By: #### C BCWOD, PT, PTT, DDIMR, EDCTNI, NTPROBNP, CHEM8, LIPASE, CMETADD #### Unless otherwise noted, all testing performed by [place] [address] CLIA: [id number] [employer]: Maurice Coello M.D. Culture,Bacterialon 11-28-19 Culture,Bacterial Test Name: Culture,Bacterial Site: left knee (TKA) Culture Status: Final Culture Report: No Growth - Day 5 Gram Stain: Moderate WBC's No Organisms Seen Micro Source: Synovial Fluid Normal [facility] Comment on above: Performed By: #### C BCWOD, PT, PTT, DDIMR, EDCTNI, NTPROBNP, CHEM8, LIPASE, CMETADD #### Unless otherwise noted, all testing performed by [place] [address] CLIA: [id number] [employer]: Maurice Coello M.D. CBC with Diffon 11-27-2018 Basophils #/vol (Bld) 0.1 K/mcL Normal 0-0.2 [facility] Comment on above: Performed By: #### C BCWOD, PT, PTT, DDIMR, EDCTNI, NTPROBNP, CHEM8, LIPASE, CMETADD #### Unless otherwise noted, all testing performed by [place] [address] CLIA: [id number] [employer]: Maurice Coello M.D. Basophils/100 WBC (Bld) 0.8 % Normal [facility] Comment on above: Performed By: #### C BCWOD, PT, PTT, DDIMR, EDCTNI, NTPROBNP, CHEM8, LIPASE, CMETADD #### Unless otherwise noted, all testing performed by [place] [address] CLIA: [id number] [employer]: Maurice Coello M.D. Eosinophils #/vol (Bld) 0.1 K/mcL Normal 0-0.5 [facility] Comment on above: Performed By: #### C BCWOD, PT, PTT, DDIMR, EDCTNI, NTPROBNP, CHEM8, LIPASE, CMETADD #### Unless otherwise noted, all testing performed by [place] [address] CLIA: [id number] [employer]: Maurice Coello M.D. Eosinophils/100 WBC (Bld) 1.3 % Normal [facility] Comment on above: Performed By: #### C BCWOD, PT, PTT, DDIMR, EDCTNI, NTPROBNP, CHEM8, LIPASE, CMETADD #### Unless otherwise noted, all testing performed by [place] [address] CLIA: [id number] [employer]: Maurice Coello M.D. Erythrocyte distribution width Ratio (RBC) 16.8 % High 10.0-14.4 [facility] Comment on above: Performed By: #### C BCWOD, PT, PTT, DDIMR, EDCTNI, NTPROBNP, CHEM8, LIPASE, CMETADD #### Unless otherwise noted, all testing performed by [place] [id number] CLIA: [id number] [employer]: Maurice Coello M.D. Hematocrit Volume Fraction (Bld) 37.1 % Normal 34.4-44.8 [facility] Comment on above: Performed By: #### C BCWOD, PT, PTT, DDIMR, EDCTNI, NTPROBNP, CHEM8, LIPASE, CMETADD #### Unless otherwise noted, all testing performed by [place] [address] CLIA: [id number] [employer]: Maurice Coello M.D. Hemoglobin mass conc (Bld) 11.7 g/dL Normal 11.6-15.4 [facility] Comment on above: Performed By: #### C BCWOD, PT, PTT, DDIMR, EDCTNI, NTPROBNP, CHEM8, LIPASE, CMETADD #### Unless otherwise noted, all testing performed by [place] [address] CLIA: [id number] [employer]: Maurice Coello M.D. Lymphocytes #/vol (Bld) 1.6 K/mcL Normal 1.0-3.7 [facility] Comment on above: Performed By: #### C BCWOD, PT, PTT, DDIMR, EDCTNI, NTPROBNP, CHEM8, LIPASE, CMETADD #### Unless otherwise noted, all testing performed by [place] [address] CLIA: [id number] [employer]: Maurice Coello M.D. Lymphocytes/100 WBC (Bld) 19.2 % Normal [facility] Comment on above: Performed By: #### C BCWOD, PT, PTT, DDIMR, EDCTNI, NTPROBNP, CHEM8, LIPASE, CMETADD #### Unless otherwise noted, all testing performed by [place] [address] CLIA: [id number] [employer]: Maurice Coello M.D. MCH Entitic mass (RBC) 24.2 pg Low 27.9-33.9 [facility] Comment on above: Performed By: #### C BCWOD, PT, PTT, DDIMR, EDCTNI, NTPROBNP, CHEM8, LIPASE, CMETADD #### Unless otherwise noted, all testing performed by [place] [address] CLIA: [id number] [employer]: Maurice Coello M.D. MCHC mass conc (RBC) 31.5 g/dL Low 33.1-35.[address] [facility] Comment on above: Performed By: #### C BCWOD, PT, PTT, DDIMR, EDCTNI, NTPROBNP, CHEM8, LIPASE, CMETADD #### Unless otherwise noted, all testing performed by [place] [address] CLIA: [id number] [employer]: Maurice Coello M.D. MCV Entitic volume (RBC) 77.0 fL Low 82.6-98.9 [facility] Comment on above: Performed By: #### C BCWOD, PT, PTT, DDIMR, EDCTNI, NTPROBNP, CHEM8, LIPASE, CMETADD #### Unless otherwise noted, all testing performed by [place] [address] CLIA: [id number] [employer]: Maurice Coello M.D. Monocytes #/vol (Bld) 0.5 K/mcL Normal 0.1-0.6 [facility] Comment on above: Performed By: #### C BCWOD, PT, PTT, DDIMR, EDCTNI, NTPROBNP, CHEM8, LIPASE, CMETADD #### Unless otherwise noted, all testing performed by [place] [address] CLIA: [id number] [employer]: Maurice Coello M.D. Monocytes/100 WBC (Bld) 6.5 % Normal [facility] Comment on above: Performed By: #### C BCWOD, PT, PTT, DDIMR, EDCTNI, NTPROBNP, CHEM8, LIPASE, CMETADD #### Unless otherwise noted, all testing performed by [place] [address] CLIA: [id number] [employer]: Maurice Coello M.D. Neutrophils #/vol (Bld) 5.9 K/mcL Normal 1.2-6.9 [facility] Comment on above: Performed By: #### C BCWOD, PT, PTT, DDIMR, EDCTNI, NTPROBNP, CHEM8, LIPASE, CMETADD #### Unless otherwise noted, all testing performed by [place] [address] CLIA: [id number] [employer]: Maurice Coello M.D. Platelet mean volume Entitic volume (Bld) 8.5 fL Normal 7.0-10.6 [facility] Comment on above: Performed By: #### C BCWOD, PT, PTT, DDIMR, EDCTNI, NTPROBNP, CHEM8, LIPASE, CMETADD #### Unless otherwise noted, all testing performed by [place] [address] CLIA: [id number] [employer]: Maurice Coello M.D. Platelets #/vol (Bld) 279 K/mcL Normal 162-402 [facility] Comment on above: Performed By: #### C BCWOD, PT, PTT, DDIMR, EDCTNI, NTPROBNP, CHEM8, LIPASE, CMETADD #### Unless otherwise noted, all testing performed by [place] [address] CLIA: [id number] [employer]: Maurice Coello M.D. RBC #/vol (Bld) 4.83 M/mcL Normal 3.7-5.0 [facility] [place] Comment on above: Performed By: #### C BCWOD, PT, PTT, DDIMR, EDCTNI, NTPROBNP, CHEM8, LIPASE, CMETADD #### Unless otherwise noted, all testing performed by [place] [address] CLIA: [id number] [employer]: Maurice Coello M.D. Segmented Neut % 72.2 % Normal [facility] Comment on above: Performed By: #### C BCWOD, PT, PTT, DDIMR, EDCTNI, NTPROBNP, CHEM8, LIPASE, CMETADD #### Unless otherwise noted, all testing performed by [place] [address] CLIA: [id number] [employer]: Maurice Coello M.D. WBC #/vol (Bld) 8.2 K/mcL Normal 3.4-10.6 [facility] [place] Comment on above: Performed By: #### C BCWOD, PT, PTT, DDIMR, EDCTNI, NTPROBNP, CHEM8, LIPASE, CMETADD #### Unless otherwise noted, all testing performed by [place] [address] CLIA: [id number] [employer]: Maurice Coello M.D. CRP, C-Reactive Proteinon Protein mass conc 145.0 mg/L High 0.0-10.0 [facility] Comment on above: Performed By: #### C BCWOD, PT, PTT, DDIMR, EDCTNI, NTPROBNP, CHEM8, LIPASE, CMETADD #### Unless otherwise noted, all testing performed by [place] [address] CLIA: [id number] [employer]: Maurice Coello M.D. Comprehensive Metabolic Pane [facility] 11-27-2018 Albumin mass conc 3.6 g/dL Normal 3.2-5.2 [facility] Comment on above: Performed By: #### C BCWOD, PT, PTT, DDIMR, EDCTNI, NTPROBNP, CHEM8, LIPASE, CMETADD #### Unless otherwise noted, all testing performed by [place] [address] CLIA: [id number] [employer]: Maurice Coello M.D. ALP enzyme act/vol 102 U/L Normal 40-150 [facility] Comment on above: Performed By: #### C BCWOD, PT, PTT, DDIMR, EDCTNI, NTPROBNP, CHEM8, LIPASE, CMETADD #### Unless otherwise noted, all testing performed by [place] [address] CLIA: [id number] [employer]: Maurice Coello M.D. ALT enzyme act/vol 21 U/L Normal 14-65 [facility] Comment on above: Result Comment: This test result might be falsely depressed or falsely elevated on samples drawn from patients taking Sulfasalazine and Sulfapyridine. Venipuncture should occur prior to taking either of these drugs. Performed By: #### C BCWOD, PT, PTT, DDIMR, EDCTNI, NTPROBNP, CHEM8, LIPASE, CMETADD #### Unless otherwise noted, all testing performed by [place] [address] CLIA: [id number] [employer]: Maurice Coello M.D. AST enzyme act/vol 18 U/L Normal 0-45 [facility] Comment on above: Result Comment: This test result might be falsely depressed or falsely elevated on samples drawn from patients taking Sulfasalazine and Sulfapyridine. Venipuncture should occur prior to taking either of these drugs. Performed By: #### C BCWOD, PT, PTT, DDIMR, EDCTNI, NTPROBNP, CHEM8, LIPASE, CMETADD #### Unless otherwise noted, all testing performed by [place] [address] CLIA: [id number] [employer]: Maurice Coello M.D. Bilirubin mass conc 0.3 mg/dL Normal 0.3-1.2 [facility] Comment on above: Performed By: #### C BCWOD, PT, PTT, DDIMR, EDCTNI, NTPROBNP, CHEM8, LIPASE, CMETADD #### Unless otherwise noted, all testing performed by [place] [address] CLIA: [id number] [employer]: Maurice Coello M.D. Calcium mass conc 8.7 mg/dL Normal 8.4-10.2 [facility] Comment on above: Performed By: #### C BCWOD, PT, PTT, DDIMR, EDCTNI, NTPROBNP, CHEM8, LIPASE, CMETADD #### Unless otherwise noted, all testing performed by [place] [address] CLIA: [id number] [employer]: Maurice Coello M.D. Chloride molar conc 105 mmol/L Normal 98-108 [facility] Comment on above: Performed By: #### C BCWOD, PT, PTT, DDIMR, EDCTNI, NTPROBNP, CHEM8, LIPASE, CMETADD #### Unless otherwise noted, all testing performed by [place] [address] CLIA: [id number] [employer]: Maurice Coello M.D. CO2 molar conc 27 mmol/L Normal 21-32 [facility] Comment on above: Performed By: #### C BCWOD, PT, PTT, DDIMR, EDCTNI, NTPROBNP, CHEM8, LIPASE, CMETADD #### Unless otherwise noted, all testing performed by [place] [address] CLIA: [id number] [employer]: Maurice Coello M.D. Creatinine mass conc 1.53 mg/dL High 0.40-1.[address] [facility] Comment on above: Performed By: #### C BCWOD, PT, PTT, DDIMR, EDCTNI, NTPROBNP, CHEM8, LIPASE, CMETADD #### Unless otherwise noted, all testing performed by [place] [address] CLIA: [id number] [employer]: Maurice Coello M.D. GFR/1.73 sq M predicted among blacks MDRD vol rate/area (S/P/Bld) 42 mL/min/{1.73_m2} Low >60 [facility] Comment on above: Result Comment: Afri can Marshallese GFR Calc Performed By: #### C BCWOD, PT, PTT, DDIMR, EDCTNI, NTPROBNP, CHEM8, LIPASE, CMETADD #### Unless otherwise noted, all testing performed by [place] [address] CLIA: [id number] [employer]: Maurice Coello M.D. GFR/1.73 sq M predicted among non-blacks MDRD vol rate/area (S/P/Bld) 35 mL/min/{1.73_m2} Low >[address] [facility] Comment on above: Result Comment: Non- [...] Unless otherwise noted, all testing performed by [place] [address] CLIA: [id number] [employer]: Maurice Coello M.D. Glucose mass conc 96 mg/dL Normal 70-99 [facility] Comment on above: Result Comment: This test result might be falsely depressed or falsely elevated on samples drawn from patients taking Sulfasalazine and Sulfapyridine. Venipuncture should occur prior to taking either of these drugs. Performed By: #### C BCWOD, PT, PTT, DDIMR, EDCTNI, NTPROBNP, CHEM8, LIPASE, CMETADD #### Unless otherwise noted, all testing performed by [place] [address] CLIA: [id number] [employer]: Maurice Coello M.D. Potassium molar conc 3.9 mmol/L Normal 3.5-5.[address] [facility] Comment on above: Performed By: #### C BCWOD, PT, PTT, DDIMR, EDCTNI, NTPROBNP, CHEM8, LIPASE, CMETADD #### Unless otherwise noted, all testing performed by [place] [address] CLIA: [id number] [employer]: Maurice Coello M.D. Protein mass conc 7.9 g/dL Normal 6.0-8.0 [facility] Comment on above: Performed By: #### C BCWOD, PT, PTT, DDIMR, EDCTNI, NTPROBNP, CHEM8, LIPASE, CMETADD #### Unless otherwise noted, all testing performed by [place] [address] CLIA: [id number] [employer]: Maurice Coello M.D. Sodium molar conc 139 mmol/L Normal 135-145 [facility] Comment on above: Performed By: #### C BCWOD, PT, PTT, DDIMR, EDCTNI, NTPROBNP, CHEM8, LIPASE, CMETADD #### Unless otherwise noted, all testing performed by [place] [address] CLIA: [id number] [employer]: Maurice Coello M.D. Urea nitrogen mass conc 13 mg/dL Normal 8-25 [facility] Comment on above: Performed By: #### C BCWOD, PT, PTT, DDIMR, EDCTNI, NTPROBNP, CHEM8, LIPASE, CMETADD #### Unless otherwise noted, all testing performed by [place] [address] CLIA: [id number] [employer]: Maurice Coello M.D. D-Dimeron 11-27-2018 D-Dimer 1.18 mcg/ml (FEU) High < .5 [facility] Comment on above: Result Comment: This test is intended for use in conjunction with a clinical pretest probability (PTP) assessment model to exclude pulmonary embolism (PE) and deep vein thrombosis (DVT) in outpatients suspected of PE or DVT. Performed By: #### C BCWOD, PT, PTT, DDIMR, EDCTNI, NTPROBNP, CHEM8, LIPASE, CMETADD #### Unless otherwise noted, all testing performed by [address] [address] CLIA: [id number] [employer]: Maurice Coello M.D. KNEE W/ONE OBLIQUEon 019 KNEE W/ONE OBLIQUE Final Report Accession No: [id number] Performed: Nov 27 2018 7:33PM Examination: [...] complications. Interpreting Physician: MATIAS ADLER M.D. Trans: [id number] : cc: Normal [facility] Lactic Acidon 11-27-2018 Lactate molar conc 0.9 mmol/L Normal 0.6-2.0 [facility] Comment on above: Performed By: #### C BCWOD, PT, PTT, DDIMR, EDCTNI, NTPROBNP, CHEM8, LIPASE, CMETADD #### Unless otherwise noted, all testing performed by [facility] [address] [facility]. [place] [address] CLIA: [id number] [employer]: Maurice Coello M.D. Sed Rateon 11-27-2018 Sed Rate 53 MM/hr. High 0-20 [facility] Comment on above: Performed By: #### C BCWOD, PT, PTT, DDIMR, EDCTNI, NTPROBNP, CHEM8, LIPASE, CMETADD #### Unless otherwise noted, all testing performed by [place] [address] CLIA: [id number] [employer]: Maurice Coello M.D. US EXTREMITY NON-VASCULAR LM ITEDon 10-10-2018 US EXTREMITY NON-VASCULAR LMITED Final Report Accession No: [id number] Performed: Oct 10 2018 12:32PM Examination: [...] DAY D.O. Trans: dcarr : cc: Normal [facility] Blood Gas, Arterialon 2017 Aa Ratio 77.0 % Normal [facility] Comment on above: Performed By: #### C BCWOD, PT, PTT, DDIMR, EDCTNI, NTPROBNP, CHEM8, LIPASE, CMETADD #### Unless otherwise noted, all testing performed by [address] [place] [address] CLIA: [id number] [employer]: Maurice Coello M.D. [id number] 21.5 mm Hg Normal [facility] Comment on above: Performed By: #### C BCWOD, PT, PTT, DDIMR, EDCTNI, NTPROBNP, CHEM8, LIPASE, CMETADD #### Unless otherwise noted, all testing performed by [place] [address] CLIA: [id number] [employer]: Maurice Coello M.D. Allens Test N/A [facility] Comment on above: Performed By: #### C BCWOD, PT, PTT, DDIMR, EDCTNI, NTPROBNP, CHEM8, LIPASE, CMETADD #### Unless otherwise noted, all testing performed by [place] [address] CLIA: [id number] [employer]: Maurice Coello M.D. Base Excess 1.2 mmol/L Normal -2-2 [facility] Comment on above: Performed By: #### C BCWOD, PT, PTT, DDIMR, EDCTNI, NTPROBNP, CHEM8, LIPASE, CMETADD #### Unless otherwise noted, all testing performed by [place] [address] CLIA: [id number] [employer]: Maurice Coello M.D. Blood Gas Instrument ;ICU [facility] Comment on above: Performed By: #### C BCWOD, PT, PTT, DDIMR, EDCTNI, NTPROBNP, CHEM8, LIPASE, CMETADD #### Unless otherwise noted, all testing performed by [place] [address] CLIA: [id number] [employer]: Maurice Coello M.D. Carboxyhemoglobin 1.2 % Normal [facility] Comment on above: Result Comment: Subu rban Non-Smoker <1.5% of total Hgb Smoker 1.5 - 5.0 % of total Hgb Heavy Smoker 5.0 - 9.0 % of total Hgb Performed By: #### C BCWOD, PT, PTT, DDIMR, EDCTNI, NTPROBNP, CHEM8, LIPASE, CMETADD #### Unless otherwise noted, all testing performed by [place] [address] CLIA: [id number] [employer]: Maurice Coello M.D. DeOxyhemoglobin (HHB) 5.5 % High 0.0-5.0 [facility] Comment on above: Performed By: #### C BCWOD, PT, PTT, DDIMR, EDCTNI, NTPROBNP, CHEM8, LIPASE, CMETADD #### Unless otherwise noted, all testing performed by [place] [address] CLIA: [id number] [employer]: Maurice Coello M.D. Drawn By (Bld Gas) [facility] Normal [facility] Comment on above: Performed By: #### C BCWOD, PT, PTT, DDIMR, EDCTNI, NTPROBNP, CHEM8, LIPASE, CMETADD #### Unless otherwise noted, all testing performed by [place] [address] CLIA: [id number] [employer]: Maurice Coello M.D. FIO2 21.0 % Normal 21-100 [facility] Comment on above: Performed By: #### C BCWOD, PT, PTT, DDIMR, EDCTNI, NTPROBNP, CHEM8, LIPASE, CMETADD #### Unless otherwise noted, all testing performed by [place] [address] CLIA: [id number] [employer]: Maurice Coello M.D. HCO3 molar conc (Bld) 26.6 mmol/L High 22-26 [facility] Comment on above: Performed By: #### C BCWOD, PT, PTT, DDIMR, EDCTNI, NTPROBNP, CHEM8, LIPASE, CMETADD #### Unless otherwise noted, all testing performed by [place] [address] CLIA: [id number] [employer]: Maurice Coello M.D. Hematocrit Volume Fraction (Bld) 37.9 % Normal 36-46 [facility] Comment on above: Performed By: #### C BCWOD, PT, PTT, DDIMR, EDCTNI, NTPROBNP, CHEM8, LIPASE, CMETADD #### Unless otherwise noted, all testing performed by [place] [address] CLIA: [id number] [employer]: Maurice Coello M.D. Hemoglobin mass conc (Bld) 94.4 % Normal 92-99 [facility] Comment on above: Performed By: #### C BCWOD, PT, PTT, DDIMR, EDCTNI, NTPROBNP, CHEM8, LIPASE, CMETADD #### Unless otherwise noted, all testing performed by [place] [address] CLIA: [id number] [employer]: Maurice Coello M.D. Hemoglobin mass conc (Bld) 12.4 g/dL Normal 12.0-16.0 [facility] Comment on above: Performed By: #### C BCWOD, PT, PTT, DDIMR, EDCTNI, NTPROBNP, CHEM8, LIPASE, CMETADD #### Unless otherwise noted, all testing performed by [facility] [place] [address] CLIA: [id number] [employer]: Maurice Coello M.D. Hemoglobin mass conc (Bld) 92.2 % Normal 92-99 [facility] Comment on above: Performed By: #### C BCWOD, PT, PTT, DDIMR, EDCTNI, NTPROBNP, CHEM8, LIPASE, CMETADD #### Unless otherwise noted, all testing performed by [place] [address] CLIA: [id number] [employer]: Maurice Coello M.D. Methemoglobin 1.1 % Normal < 2.0 [facility] Comment on above: Performed By: #### C BCWOD, PT, PTT, DDIMR, EDCTNI, NTPROBNP, CHEM8, LIPASE, CMETADD #### Unless otherwise noted, all testing performed by [place] [address] CLIA: [id number] [employer]: Maurice Coello M.D. O2 Device Room Air Normal [facility] Comment on above: Performed By: #### C BCWOD, PT, PTT, DDIMR, EDCTNI, NTPROBNP, CHEM8, LIPASE, CMETADD #### Unless otherwise noted, all testing performed by [place] [address] CLIA: [id number] [employer]: Maurice Coello M.D. O2CT 7.2 mmol/L Normal [facility] Comment on above: Performed By: #### C BCWOD, PT, PTT, DDIMR, EDCTNI, NTPROBNP, CHEM8, LIPASE, CMETADD #### Unless otherwise noted, all testing performed by [address] [place] [address] CLIA: [id number] [employer]: Maurice Coello M.D. Oxygen ppres (Bld) 71.8 mm Hg Low 80-100 [facility] Comment on above: Performed By: #### C BCWOD, PT, PTT, DDIMR, EDCTNI, NTPROBNP, CHEM8, LIPASE, CMETADD #### Unless otherwise noted, all testing performed by [place] [address] CLIA: [id number] [employer]: Maurice Coelol M.D. PCO2 44.1 mm Hg Normal 35-45 [facility] Comment on above: Performed By: #### C BCWOD, PT, PTT, DDIMR, EDCTNI, NTPROBNP, CHEM8, LIPASE, CMETADD #### Unless otherwise noted, all testing performed by [place] [address] CLIA: [id number] [employer]: Maurice Coello M.D. pCO2 (temp conv.) 44.1 mm Hg Normal 35.0-45.0 [facility] Comment on above: Performed By: #### C BCWOD, PT, PTT, DDIMR, EDCTNI, NTPROBNP, CHEM8, LIPASE, CMETADD #### Unless otherwise noted, all testing performed by [place] [address] CLIA: [id number] [employer]: Maurice Coello M.D. pH (Bld) 7.389 [pH] Normal 7.350-7.450 [facility] Comment on above: Performed By: #### C BCWOD, PT, PTT, DDIMR, EDCTNI, NTPROBNP, CHEM8, LIPASE, CMETADD #### Unless otherwise noted, all testing performed by [place] [address] CLIA: [id number] [employer]: Maurice Coello M.D. Site (Bld Gas) RTBRACH Normal [facility] Comment on above: Performed By: #### C BCWOD, PT, PTT, DDIMR, EDCTNI, NTPROBNP, CHEM8, LIPASE, CMETADD #### Unless otherwise noted, all testing performed by [place] [address] CLIA: [id number] [employer]: Maurice Coello M.D. 25-Hydroxy D Totalon 018 25-Hydroxy D Total 52 ng/mL Normal 30-100 [facility] Comment on above: Result Comment: Hoonrio oliva note that Fluorescein which is used [...] Unless otherwise noted, all testing performed by [place] [address] CLIA: [id number] [employer]: Maurice Coello M.D. Albuminon 07-02-2018 Albumin mass conc 3.5 g/dL Normal 3.2-5.2 [facility] Comment on above: Performed By: #### C BCWOD, PT, PTT, DDIMR, EDCTNI, NTPROBNP, CHEM8, LIPASE, CMETADD #### Unless otherwise noted, all testing performed by [place] [address] CLIA: [id number] [employer]: Maurice Coello M.D. Albumin mass conc 3.5 g/dL Invalid Interpretation Code 3.2 - 5.2 g/dL [facility] BUN and Creatinineon 018 Creatinine mass conc 1.48 mg/dL High 0.40-1.[address] [facility] Comment on above: Performed By: #### C BCWOD, PT, PTT, DDIMR, EDCTNI, NTPROBNP, CHEM8, LIPASE, CMETADD #### Unless otherwise noted, all testing performed by [place] [address] CLIA: [id number] [employer]: Maurice Coello M.D. GFR/1.73 sq M predicted among blacks MDRD vol rate/area (S/P/Bld) 43 mL/min/{1.73_m2} Low >60 [facility] Comment on above: Result Comment: Afri can Marshallese GFR Calc Performed By: #### C BCWOD, PT, PTT, DDIMR, EDCTNI, NTPROBNP, CHEM8, LIPASE, CMETADD #### Unless otherwise noted, all testing performed by [place] [address] CLIA: [id number] [employer]: Maurice Coello M.D. GFR/1.73 sq M predicted among non-blacks MDRD vol rate/area (S/P/Bld) 36 mL/min/{1.73_m2} Low >[address] [facility] Comment on above: Result Comment: Non- [...] Unless otherwise noted, all testing performed by [place] [address] CLIA: [id number] [employer]: Maurice Coello M.D. Urea nitrogen mass conc 14 mg/dL Normal 8-25 [facility] Comment on above: Performed By: #### C BCWOD, PT, PTT, DDIMR, EDCTNI, NTPROBNP, CHEM8, LIPASE, CMETADD #### Unless otherwise noted, all testing performed by [place] [address] CLIA: [id number] [employer]: Maurice Coello M.D. Creatinine mass conc 1.48 mg/dL High 0.4 - 1 .1 mg/dL [facility] GFR/1.73 sq M predicted among blacks MDRD vol rate/area (S/P/Bld) 43 mL/min/{1.73_m2} Low >60 ml/min/1.73sq .[facility] Comment on above: GFR Calc GFR/1.73 sq M predicted among non-blacks MDRD vol rate/area (S/P/Bld) 36 mL/min/{1.73_m2} Low >60 ml/min/1.73sq .[facility] Comment on above: Non- GFR Calc eGFR [...] Invalid Interpretation Code 8 - 25 mg/dL [facility] Calciumon 07-02-2018 Calcium mass conc 9.0 mg/dL Normal 8.4-10.2 [facility] Comment on above: Performed By: #### C BCWOD, PT, PTT, DDIMR, EDCTNI, NTPROBNP, CHEM8, LIPASE, CMETADD #### Unless otherwise noted, all testing performed by [place] [address] CLIA: [id number] [employer]: Maurice Coello M.D. Calcium Levelon 07-02-2018 Calcium mass conc 9.0 mg/dL Invalid Interpretation Code 8.4 - 10.2 mg/dL [facility] Electrolyte Panelon 07-02-20 18 Chloride molar conc 100 mmol/L Invalid Interpretation Code 98 - 108 mmol/L [facility] CO2 molar conc 28 mmol/L Invalid Interpretation Code 21 - 32 mmol/L [facility] Potassium molar conc 4.7 mmol/L Invalid Interpretation Code 3.5 - 5.1 mmol/L [facility] Sodium molar conc 133 mmol/L Low 135 - 145 mmol/L [facility] Electrolyteson 07-02-2018 Chloride molar conc 100 mmol/L Normal 98-108 [facility] Comment on above: Performed By: #### C BCWOD, PT, PTT, DDIMR, EDCTNI, NTPROBNP, CHEM8, LIPASE, CMETADD #### Unless otherwise noted, all testing performed by [place] [address] CLIA: [id number] [employer]: Maurice Coello M.D. CO2 molar conc 28 mmol/L Normal 21-32 [facility] Comment on above: Performed By: #### C BCWOD, PT, PTT, DDIMR, EDCTNI, NTPROBNP, CHEM8, LIPASE, CMETADD #### Unless otherwise noted, all testing performed by [place] [address] CLIA: [id number] [employer]: Maurice Coello M.D. Potassium molar conc 4.7 mmol/L Normal 3.5-5.[address] [facility] Comment on above: Performed By: #### C BCWOD, PT, PTT, DDIMR, EDCTNI, NTPROBNP, CHEM8, LIPASE, CMETADD #### Unless otherwise noted, all testing performed by [place] [address] CLIA: [id number] [employer]: Maurice Coello M.D. Sodium molar conc 133 mmol/L Low 135-145 [facility] Comment on above: Performed By: #### C BCWOD, PT, PTT, DDIMR, EDCTNI, NTPROBNP, CHEM8, LIPASE, CMETADD #### Unless otherwise noted, all testing performed by [place] [address] CLIA: [id number] [employer]: Maurice Coello M.D. Hemoglobin and Hematocriton 07-02-2018 Hematocrit Auto Volume Fraction (Bld) 36.3 % Invalid Interpretation Code 34.4 - 44.8 % [facility] Hemoglobin mass conc (Bld) 11.7 g/dL Invalid Interpretation Code 11.6 - 15.4 g/dL [facility] Hgb and Hcton 07-02-2018 Hematocrit Volume Fraction (Bld) 36.3 % Normal 34.4-44.8 [facility] Comment on above: Performed By: #### C BCWOD, PT, PTT, DDIMR, EDCTNI, NTPROBNP, CHEM8, LIPASE, CMETADD #### Unless otherwise noted, all testing performed by [place] [address] CLIA: [id number] [employer]: Maurice Coello M.D. Hemoglobin mass conc (Bld) 11.7 g/dL Normal 11.6-15.4 [facility] Comment on above: Performed By: #### C BCWOD, PT, PTT, DDIMR, EDCTNI, NTPROBNP, CHEM8, LIPASE, CMETADD #### Unless otherwise noted, all testing performed by [place] [address] CLIA: [id number] [employer]: Maurice Coello M.D. Otheron 07-02-2018 Interpretation and review of laboratory results Abnormal Invalid Interpretation Code [facility] Parathyroid Hormoneon 2017 Parathyroid Hormone 107.5 pg/mL High 18.4-80.[address] [facility] Comment on above: Result Comment: Samp les from patients routinely receiving high dose biotin therapy may show falsely depressed results. Additional information may be required for diagnosis. Performed By: #### C BCWOD, PT, PTT, DDIMR, EDCTNI, NTPROBNP, CHEM8, LIPASE, CMETADD #### Unless otherwise noted, all testing performed by [place] [address] CLIA: [id number] [employer]: Maurice Coello M.D. Interpretation and review of laboratory results Abnormal Invalid Interpretation Code [facility] Parathyroid Hormone 107.5 pg/mL High 18.4 - 8 0.1 pg/mL [facility] Comment on above: Samples from patient s routinely receiving high dose biotin therapy may show falsely depressed results. Additional information may be required for diagnosis. Phosphoruson 07-02-2018 Phosphate mass conc 3.1 mg/dL Normal 2.7-4.5 [facility] Comment on above: Performed By: #### C BCWOD, PT, PTT, DDIMR, EDCTNI, NTPROBNP, CHEM8, LIPASE, CMETADD #### Unless otherwise noted, all testing performed by [place] [address] CLIA: [id number] [employer]: Maurice Coello M.D. Phosphate mass conc 3.1 mg/dL Invalid Interpretation Code 2.7 - 4.5 mg/dL [facility] Protein Panel, Urineon 07-02 Creatinine, Urine Random 83.50 mg/dL Normal [facility] Comment on above: Result Comment: No e stablished reference range. Performed By: #### C BCWOD, PT, PTT, DDIMR, EDCTNI, NTPROBNP, CHEM8, LIPASE, CMETADD #### Unless otherwise noted, all testing performed by [place] [address] CLIA: [id number] [employer]: Maurice Coello M.D. Protein Creatinine Ratio 0.50 High 0.0-0.2 [facility] Comment on above: Performed By: #### C BCWOD, PT, PTT, DDIMR, EDCTNI, NTPROBNP, CHEM8, LIPASE, CMETADD #### Unless otherwise noted, all testing performed by [place] [address] CLIA: [id number] [employer]: Maurice Coello M.D. Protein mass conc (U) 42.0 mg/dL Normal [facility] Comment on above: Performed By: #### C BCWOD, PT, PTT, DDIMR, EDCTNI, NTPROBNP, CHEM8, LIPASE, CMETADD #### Unless otherwise noted, all testing performed by [place] [address] CLIA: [id number] [employer]: Maurice Coello M.D. Creatinine, Urine Random 83.50 mg/dL Invalid Interpretation Code [facility] Comment on above: No established refer ence range. Interpretation and review of laboratory results Abnormal Invalid Interpretation Code [facility] Protein, Urine Random 42.0 mg/dL Invalid Interpretation Code [facility] Protein/Creatinine Ratio, Urine 0.50 High [facility] TSHon 07-02-2018 Thyrotropin Qn 2.08 uIU/mL Normal 0.320-5.000 [facility] Comment on above: Result Comment: Samp les from patients routinely receiving high dose biotin therapy (100-300 mg/day) may show falsely decreased results. Please correlate clinically. Performed By: #### C BCWOD, PT, PTT, DDIMR, EDCTNI, NTPROBNP, CHEM8, LIPASE, CMETADD #### Unless otherwise noted, all testing performed by [address] [address] CLIA: [id number] [employer]: Maurice Coello M.D. Thyrotropin Qn 2.08 m[IU]/L Invalid Interpretation Code [facility] Comment on above: Samples from patient s routinely receiving high dose biotin therapy (100-300 mg/day) may show falsely decreased results. Please correlate clinically. Thryroglobulin Tumor Mrkron 07-02-2018 Thyroglobulin Ab Qn 1.6 [IU]/mL Normal 0.0-3.[address] [facility] Comment on above: Result Comment: Valu es obtained from different assay methods or kits may be different and cannot be used intergchangeably. Assay performed by [employer]. Test Performed by [facility] [address] [place] [address] Performed By: #### C BCWOD, PT, PTT, DDIMR, EDCTNI, NTPROBNP, CHEM8, LIPASE, CMETADD #### Unless otherwise noted, all testing performed by [facility] [address] [place], [place] [address] CLIA: [id number] [employer]: Maurice Coello M.D. Thyroglobulin, Serum < 0.1 Normal <0.[address] [facility] Comment on above: Result Comment: Refe rence range applies to athyrotic individuals. Patients with an intact thyroid are expected to have levels less than or equal to 35 ng/ml. Assay performed by [employer] Performed By: #### C BCWOD, PT, PTT, DDIMR, EDCTNI, NTPROBNP, CHEM8, LIPASE, CMETADD #### Unless otherwise noted, all testing performed by [address] [address] CLIA: [id number] [employer]: Maurice Coello M.D. Vitamin D, Total, 25-OHon Vitamin D, 25-Hydroxy, Total 52 ng/mL Invalid Interpretation Code 30 - 100 ng/mL [facility] Comment on above: Please note that [...] Calcium mass conc 8.7 mg/dL Normal 8.4-10.2 [facility] Comment on above: Performed By: #### C BCWOD, PT, PTT, DDIMR, EDCTNI, NTPROBNP, CHEM8, LIPASE, CMETADD #### Unless otherwise noted, all testing performed by [address] [address] CLIA: [id number] [employer]: Maurice Coello M.D. Chloride molar conc 99 mmol/L Normal 98-108 [facility] Comment on above: Performed By: #### C BCWOD, PT, PTT, DDIMR, EDCTNI, NTPROBNP, CHEM8, LIPASE, CMETADD #### Unless otherwise noted, all testing performed by [place] [address] CLIA: [id number] [employer]: Maurice Coello M.D. CO2 molar conc 29 mmol/L Normal 21-32 [facility] Comment on above: Performed By: #### C BCWOD, PT, PTT, DDIMR, EDCTNI, NTPROBNP, CHEM8, LIPASE, CMETADD #### Unless otherwise noted, all testing performed by [place] [address] CLIA: [id number] [employer]: Maurice Coello M.D. Creatinine mass conc 1.50 mg/dL High 0.40-1.[address] [facility] Comment on above: Performed By: #### C BCWOD, PT, PTT, DDIMR, EDCTNI, NTPROBNP, CHEM8, LIPASE, CMETADD #### Unless otherwise noted, all testing performed by [place] [address] CLIA: [id number] [employer]: Maurice Coello M.D. GFR/1.73 sq M predicted among blacks MDRD vol rate/area (S/P/Bld) 43 mL/min/{1.73_m2} Low >60 [facility] Comment on above: Result Comment: Afri can Marshallese GFR Calc Performed By: #### C BCWOD, PT, PTT, DDIMR, EDCTNI, NTPROBNP, CHEM8, LIPASE, CMETADD #### Unless otherwise noted, all testing performed by [place] [address] CLIA: [id number] [employer]: Maurice Coello M.D. GFR/1.73 sq M predicted among non-blacks MDRD vol rate/area (S/P/Bld) 35 mL/min/{1.73_m2} Low >[address] [facility] Comment on above: Result Comment: Non- [...] Unless otherwise noted, all testing performed by [place] [address] CLIA: [id number] [employer]: Maurice Coello M.D. Glucose mass conc 108 mg/dL High 70-99 [facility] Comment on above: Result Comment: This test result might be falsely depressed or falsely elevated on samples drawn from patients taking Sulfasalazine and Sulfapyridine. Venipuncture should occur prior to taking either of these drugs. Performed By: #### C BCWOD, PT, PTT, DDIMR, EDCTNI, NTPROBNP, CHEM8, LIPASE, CMETADD #### Unless otherwise noted, all testing performed by [place] [address] CLIA: [id number] [employer]: Maurice Coello M.D. Potassium molar conc 5.2 mmol/L High 3.5-5.[address] [facility] Comment on above: Performed By: #### C BCWOD, PT, PTT, DDIMR, EDCTNI, NTPROBNP, CHEM8, LIPASE, CMETADD #### Unless otherwise noted, all testing performed by [place] [address] CLIA: [id number] [employer]: Maurice Coello M.D. Sodium molar conc 133 mmol/L Low 135-145 [facility] Comment on above: Performed By: #### C BCWOD, PT, PTT, DDIMR, EDCTNI, NTPROBNP, CHEM8, LIPASE, CMETADD #### Unless otherwise noted, all testing performed by [place] [address] CLIA: [id number] [employer]: Maurice Coello M.D. Urea nitrogen mass conc 13 mg/dL Normal 8-25 [facility] Comment on above: Performed By: #### C BCWOD, PT, PTT, DDIMR, EDCTNI, NTPROBNP, CHEM8, LIPASE, CMETADD #### Unless otherwise noted, all testing performed by [place] [address] CLIA: [id number] [employer]: Maurice Coello M.D. CBC with Diffon 06-21-2018 Basophils #/vol (Bld) 0.1 K/mcL Normal 0-0.2 [facility] Comment on above: Performed By: #### C BCWOD, PT, PTT, DDIMR, EDCTNI, NTPROBNP, CHEM8, LIPASE, CMETADD #### Unless otherwise noted, all testing performed by [place] [address] CLIA: [id number] [employer]: Maurice Coello M.D. Basophils/100 WBC (Bld) 1.0 % Normal [facility] Comment on above: Performed By: #### C BCWOD, PT, PTT, DDIMR, EDCTNI, NTPROBNP, CHEM8, LIPASE, CMETADD #### Unless otherwise noted, all testing performed by [address] [place], [place] [address] CLIA: [id number] [employer]: Maurice Coello M.D. Eosinophils #/vol (Bld) 0.2 K/mcL Normal 0-0.5 [facility] Comment on above: Performed By: #### C BCWOD, PT, PTT, DDIMR, EDCTNI, NTPROBNP, CHEM8, LIPASE, CMETADD #### Unless otherwise noted, all testing performed by [place] [address] CLIA: [id number] [employer]: Maurice Coello M.D. Eosinophils/100 WBC (Bld) 2.3 % Normal [facility] Comment on above: Performed By: #### C BCWOD, PT, PTT, DDIMR, EDCTNI, NTPROBNP, CHEM8, LIPASE, CMETADD #### Unless otherwise noted, all testing performed by [place] [address] CLIA: [id number] [employer]: Maurice Coello M.D. Erythrocyte distribution width Ratio (RBC) 15.4 % High 10.0-14.4 [facility] Comment on above: Performed By: #### C BCWOD, PT, PTT, DDIMR, EDCTNI, NTPROBNP, CHEM8, LIPASE, CMETADD #### Unless otherwise noted, all testing performed by [place] [address] CLIA: [id number] [employer]: Maurice Coello M.D. Hematocrit Volume Fraction (Bld) 33.9 % Low 34.4-44.8 [facility] Comment on above: Performed By: #### C BCWOD, PT, PTT, DDIMR, EDCTNI, NTPROBNP, CHEM8, LIPASE, CMETADD #### Unless otherwise noted, all testing performed by [place] [address] CLIA: [id number] [employer]: Maurice Coello M.D. Hemoglobin mass conc (Bld) 10.7 g/dL Low 11.6-15.4 [facility] Comment on above: Performed By: #### C BCWOD, PT, PTT, DDIMR, EDCTNI, NTPROBNP, CHEM8, LIPASE, CMETADD #### Unless otherwise noted, all testing performed by [place] [address] CLIA: [id number] [employer]: Maurice Coello M.D. Lymphocytes #/vol (Bld) 1.6 K/mcL Normal 1.0-3.7 [facility] Comment on above: Performed By: #### C BCWOD, PT, PTT, DDIMR, EDCTNI, NTPROBNP, CHEM8, LIPASE, CMETADD #### Unless otherwise noted, all testing performed by [place] [address] CLIA: [id number] [employer]: Maurice Coello M.D. Lymphocytes/100 WBC (Bld) 24.6 % Normal [facility] Comment on above: Performed By: #### C BCWOD, PT, PTT, DDIMR, EDCTNI, NTPROBNP, CHEM8, LIPASE, CMETADD #### Unless otherwise noted, all testing performed by [place] [address] CLIA: [id number] [employer]: Maurice Coello M.D. MCH Entitic mass (RBC) 25.4 pg Low 27.9-33.9 [facility] Comment on above: Performed By: #### C BCWOD, PT, PTT, DDIMR, EDCTNI, NTPROBNP, CHEM8, LIPASE, CMETADD #### Unless otherwise noted, all testing performed by [place] [address] CLIA: [id number] [employer]: Maurice Coello M.D. MCHC mass conc (RBC) 31.5 g/dL Low 33.1-35.[address] [facility] Comment on above: Performed By: #### C BCWOD, PT, PTT, DDIMR, EDCTNI, NTPROBNP, CHEM8, LIPASE, CMETADD #### Unless otherwise noted, all testing performed by [place] [address] CLIA: [id number] [employer]: Maurice Coello M.D. MCV Entitic volume (RBC) 80.7 fL Low 82.6-98.9 [facility] Comment on above: Performed By: #### C BCWOD, PT, PTT, DDIMR, EDCTNI, NTPROBNP, CHEM8, LIPASE, CMETADD #### Unless otherwise noted, all testing performed by [place] [address] CLIA: [id number] [employer]: Maurice Coello M.D. Monocytes #/vol (Bld) 0.6 K/mcL Normal 0.1-0.6 [facility] Comment on above: Performed By: #### C BCWOD, PT, PTT, DDIMR, EDCTNI, NTPROBNP, CHEM8, LIPASE, CMETADD #### Unless otherwise noted, all testing performed by [place] [address] CLIA: [id number] [employer]: Maurice Coello M.D. Monocytes/100 WBC (Bld) 8.8 % Normal [facility] Comment on above: Performed By: #### C BCWOD, PT, PTT, DDIMR, EDCTNI, NTPROBNP, CHEM8, LIPASE, CMETADD #### Unless otherwise noted, all testing performed by [place] [address] CLIA: [id number] [employer]: Maurice Coello M.D. Neutrophils #/vol (Bld) 4.2 K/mcL Normal 1.2-6.9 [facility] Comment on above: Performed By: #### C BCWOD, PT, PTT, DDIMR, EDCTNI, NTPROBNP, CHEM8, LIPASE, CMETADD #### Unless otherwise noted, all testing performed by [place] [address] CLIA: [id number] [employer]: Maurice Coello M.D. Platelet mean volume Entitic volume (Bld) 8.1 fL Normal 7.0-10.6 [facility] Comment on above: Performed By: #### C BCWOD, PT, PTT, DDIMR, EDCTNI, NTPROBNP, CHEM8, LIPASE, CMETADD #### Unless otherwise noted, all testing performed by [place] [address] CLIA: [id number] [employer]: Maurice Coello M.D. Platelets #/vol (Bld) 309 K/mcL Normal 162-402 [facility] Comment on above: Performed By: #### C BCWOD, PT, PTT, DDIMR, EDCTNI, NTPROBNP, CHEM8, LIPASE, CMETADD #### Unless otherwise noted, all testing performed by [place] [id number] CLIA: [id number] [employer]: Maurice Coello M.D. RBC #/vol (Bld) 4.20 M/mcL Normal 3.7-5.0 [facility] Comment on above: Performed By: #### C BCWOD, PT, PTT, DDIMR, EDCTNI, NTPROBNP, CHEM8, LIPASE, CMETADD #### Unless otherwise noted, all testing performed by [place] [address] CLIA: [id number] [employer]: Maurice Coello M.D. Segmented Neut % 63.3 % Normal [facility] Comment on above: Performed By: #### C BCWOD, PT, PTT, DDIMR, EDCTNI, NTPROBNP, CHEM8, LIPASE, CMETADD #### Unless otherwise noted, all testing performed by [place] [address] CLIA: [id number] [employer]: Maurice Coello M.D. WBC #/vol (Bld) 6.6 K/mcL Normal 3.4-10.6 [facility] Comment on above: Performed By: #### C BCWOD, PT, PTT, DDIMR, EDCTNI, NTPROBNP, CHEM8, LIPASE, CMETADD #### Unless otherwise noted, all testing performed by [place] [address] CLIA: [id number] [employer]: Maurice Coello M.D. Cardiac Troponin-Ion 018 Troponin I.cardiac mass conc No Biomarker evidence of myocardial injury within the past 14 hours. Normal [facility] Comment on above: Performed By: #### C BCWOD, PT, PTT, DDIMR, EDCTNI, NTPROBNP, CHEM8, LIPASE, CMETADD #### Unless otherwise noted, all testing performed by [address] [place], [place] [address] CLIA: [id number] [employer]: Maurice Coello M.D. Troponin I.cardiac mass conc ng/mL Normal < 45.0 [facility] Comment on above: Result Comment: Elev ation [...] Unless otherwise noted, all testing performed by [address] [address] CLIA: [id number] [employer]: Maurice Coello M.D. LUNG VENTILATION AND PERFUSI ONon 06-21-2018 LUNG VENTILATION AND PERFUSION Final Report Accession No: [id number] Performed: Jun 21 2018 12:54PM Examination: [...] FINCH M.D. Trans: dw : cc: Normal [facility] Basic Metabolic Panelon 06-06 Calcium mass conc 8.8 mg/dL Normal 8.4-10.2 [facility] Comment on above: Performed By: #### C BCWOD, PT, PTT, DDIMR, EDCTNI, NTPROBNP, CHEM8, LIPASE, CMETADD #### Unless otherwise noted, all testing performed by [place] [address] CLIA: [id number] [employer]: Maurice Coello M.D. Chloride molar conc 98 mmol/L Normal 98-108 [facility] Comment on above: Performed By: #### C BCWOD, PT, PTT, DDIMR, EDCTNI, NTPROBNP, CHEM8, LIPASE, CMETADD #### Unless otherwise noted, all testing performed by [place] [address] CLIA: [id number] [employer]: Maurice Coello M.D. CO2 molar conc 24 mmol/L Normal 21-32 [facility] Comment on above: Performed By: #### C BCWOD, PT, PTT, DDIMR, EDCTNI, NTPROBNP, CHEM8, LIPASE, CMETADD #### Unless otherwise noted, all testing performed by [place] [address] CLIA: [id number] [employer]: Maurice Coello M.D. Creatinine mass conc 1.51 mg/dL High 0.40-1.[address] [facility] Comment on above: Performed By: #### C BCWOD, PT, PTT, DDIMR, EDCTNI, NTPROBNP, CHEM8, LIPASE, CMETADD #### Unless otherwise noted, all testing performed by [place] [address] CLIA: [id number] [employer]: Maurice Coello M.D. GFR/1.73 sq M predicted among blacks MDRD vol rate/area (S/P/Bld) 43 mL/min/{1.73_m2} Low >60 [facility] Comment on above: Result Comment: Afri can Marshallese GFR Calc Performed By: #### C BCWOD, PT, PTT, DDIMR, EDCTNI, NTPROBNP, CHEM8, LIPASE, CMETADD #### Unless otherwise noted, all testing performed by [place] [address] CLIA: [id number] [employer]: Maurice Coello M.D. GFR/1.73 sq M predicted among non-blacks MDRD vol rate/area (S/P/Bld) 35 mL/min/{1.73_m2} Low >[address] [facility] Comment on above: Result Comment: Non- [...] Unless otherwise noted, all testing performed by [place] [address] CLIA: [id number] [employer]: Maurice Coello M.D. Glucose mass conc 113 mg/dL High 70-99 [facility] Comment on above: Result Comment: This test result might be falsely depressed or falsely elevated on samples drawn from patients taking Sulfasalazine and Sulfapyridine. Venipuncture should occur prior to taking either of these drugs. Performed By: #### C BCWOD, PT, PTT, DDIMR, EDCTNI, NTPROBNP, CHEM8, LIPASE, CMETADD #### Unless otherwise noted, all testing performed by [place] [address] CLIA: [id number] [employer]: Maurice Coello M.D. Potassium molar conc 4.9 mmol/L Normal 3.5-5.[address] [facility] Comment on above: Performed By: #### C BCWOD, PT, PTT, DDIMR, EDCTNI, NTPROBNP, CHEM8, LIPASE, CMETADD #### Unless otherwise noted, all testing performed by [place] [address] CLIA: [id number] [employer]: Maurice Coello M.D. Sodium molar conc 132 mmol/L Low 135-145 [facility] Comment on above: Performed By: #### C BCWOD, PT, PTT, DDIMR, EDCTNI, NTPROBNP, CHEM8, LIPASE, CMETADD #### Unless otherwise noted, all testing performed by [place] [address] CLIA: [id number] [employer]: Maurice Coello M.D. Urea nitrogen mass conc 13 mg/dL Normal 8-25 [facility] Comment on above: Performed By: #### C BCWOD, PT, PTT, DDIMR, EDCTNI, NTPROBNP, CHEM8, LIPASE, CMETADD #### Unless otherwise noted, all testing performed by [place] [id number] CLIA: [id number] [employer]: Maurice Coello M.D. CBC w/o Diffon 06-20-2018 Erythrocyte distribution width Ratio (RBC) 15.4 % High 10.0-14.4 [facility] Comment on above: Performed By: #### C BCWOD, PT, PTT, DDIMR, EDCTNI, NTPROBNP, CHEM8, LIPASE, CMETADD #### Unless otherwise noted, all testing performed by [place] [address] CLIA: [id number] [employer]: Maurice Coello M.D. Hematocrit Volume Fraction (Bld) 36.2 % Normal 34.4-44.8 [facility] Comment on above: Performed By: #### C BCWOD, PT, PTT, DDIMR, EDCTNI, NTPROBNP, CHEM8, LIPASE, CMETADD #### Unless otherwise noted, all testing performed by [place] [address] CLIA: [id number] [employer]: Maurice Coello M.D. Hemoglobin mass conc (Bld) 11.7 g/dL Normal 11.6-15.4 [facility] Comment on above: Performed By: #### C BCWOD, PT, PTT, DDIMR, EDCTNI, NTPROBNP, CHEM8, LIPASE, CMETADD #### Unless otherwise noted, all testing performed by [place] [address] CLIA: [id number] [employer]: Maurice Coello M.D. MCH Entitic mass (RBC) 25.8 pg Low 27.9-33.9 [facility] Comment on above: Performed By: #### C BCWOD, PT, PTT, DDIMR, EDCTNI, NTPROBNP, CHEM8, LIPASE, CMETADD #### Unless otherwise noted, all testing performed by [place] [address] CLIA: [id number] [employer]: Maurice Coello M.D. MCHC mass conc (RBC) 32.3 g/dL Low 33.1-35.[address] [facility] Comment on above: Performed By: #### C BCWOD, PT, PTT, DDIMR, EDCTNI, NTPROBNP, CHEM8, LIPASE, CMETADD #### Unless otherwise noted, all testing performed by [place] [address] CLIA: [id number] [employer]: Maurice Coello M.D. MCV Entitic volume (RBC) 79.7 fL Low 82.6-98.9 [facility] Comment on above: Performed By: #### C BCWOD, PT, PTT, DDIMR, EDCTNI, NTPROBNP, CHEM8, LIPASE, CMETADD #### Unless otherwise noted, all testing performed by [place] [address] CLIA: [id number] [employer]: Maurice Coello M.D. Platelet mean volume Entitic volume (Bld) 7.5 fL Normal 7.0-10.6 [facility] Comment on above: Performed By: #### C BCWOD, PT, PTT, DDIMR, EDCTNI, NTPROBNP, CHEM8, LIPASE, CMETADD #### Unless otherwise noted, all testing performed by [place] [address] CLIA: [id number] [employer]: Maurice Coello M.D. Platelets #/vol (Bld) 341 K/mcL Normal 162-402 [facility] Comment on above: Performed By: #### C BCWOD, PT, PTT, DDIMR, EDCTNI, NTPROBNP, CHEM8, LIPASE, CMETADD #### Unless otherwise noted, all testing performed by [place] [address] CLIA: [id number] [employer]: Maurice Coello M.D. RBC #/vol (Bld) 4.53 M/mcL Normal 3.7-5.0 [facility] Comment on above: Performed By: #### C BCWOD, PT, PTT, DDIMR, EDCTNI, NTPROBNP, CHEM8, LIPASE, CMETADD #### Unless otherwise noted, all testing performed by [place] [address] CLIA: [id number] [employer]: Maurice Coello M.D. WBC #/vol (Bld) 9.1 K/mcL Normal 3.4-10.6 [facility] Comment on above: Performed By: #### C BCWOD, PT, PTT, DDIMR, EDCTNI, NTPROBNP, CHEM8, LIPASE, CMETADD #### Unless otherwise noted, all testing performed by [place] [address] CLIA: [id number] [employer]: Maurice Coello M.D. CHEST (ONE VIEW ONLY)on 06-06 CHEST (ONE VIEW ONLY) Final Report Accession No: [id number] Performed: Jun 20 2018 5:35PM Examination: [...] SCHMITZ M.D. Trans: tk : cc: Normal [facility] CPKon 06-20-2018 CPK 413 U/L High 40-170 [facility] Comment on above: Performed By: #### C BCWOD, PT, PTT, DDIMR, EDCTNI, NTPROBNP, CHEM8, LIPASE, CMETADD #### Unless otherwise noted, all testing performed by [place] [address] CLIA: [id number] [employer]: Maurice Coello M.D. Cardiac Troponin-Ion 018 Troponin I.cardiac mass conc ng/mL Normal < 45.0 [facility] Comment on above: Result Comment: Elev ation [...] Unless otherwise noted, all testing performed by [place] [address] CLIA: [id number] [employer]: Maurice Coello M.D. D-Dimeron 06-20-2018 D-Dimer 0.90 mcg/ml (FEU) High < .5 [facility] Comment on above: Result Comment: This test is intended for use in conjunction with a clinical pretest probability (PTP) assessment model to exclude pulmonary embolism (PE) and deep vein thrombosis (DVT) in outpatients suspected of PE or DVT. Performed By: #### C BCWOD, PT, PTT, DDIMR, EDCTNI, NTPROBNP, CHEM8, LIPASE, CMETADD #### Unless otherwise noted, all testing performed by [place] [address] CLIA: [id number] [employer]: Maurice Coello M.D. ED Cardiac Troponin-Ion 06-06 Troponin I.cardiac mass conc ng/mL Normal < 45 [facility] Comment on above: Result Comment: Elev ation [...] Unless otherwise noted, all testing performed by [place] [address] CLIA: [id number] [employer]: Maurice Coello M.D. Lipid Panelon 06-20-2018 Cholesterol in HDL mass conc 41 mg/dL Normal 40-59 [facility] Comment on above: Performed By: #### C BCWOD, PT, PTT, DDIMR, EDCTNI, NTPROBNP, CHEM8, LIPASE, CMETADD #### Unless otherwise noted, all testing performed by [place] [address] CLIA: [id number] [employer]: Maurice Coello M.D. Cholesterol in LDL mass conc 122 mg/dL Normal 10-150 [facility] Comment on above: Performed By: #### C BCWOD, PT, PTT, DDIMR, EDCTNI, NTPROBNP, CHEM8, LIPASE, CMETADD #### Unless otherwise noted, all testing performed by [place] [address] CLIA: [id number] [employer]: Maurice Coello M.D. Cholesterol in VLDL mass conc 42 mg/dL High 5-40 [facility] Comment on above: Performed By: #### C BCWOD, PT, PTT, DDIMR, EDCTNI, NTPROBNP, CHEM8, LIPASE, CMETADD #### Unless otherwise noted, all testing performed by [place] [address] CLIA: [id number] [employer]: Maurice Coello M.D. Cholesterol mass conc 205 mg/dL High 100-199 [facility] Comment on above: Performed By: #### C BCWOD, PT, PTT, DDIMR, EDCTNI, NTPROBNP, CHEM8, LIPASE, CMETADD #### Unless otherwise noted, all testing performed by [place] [address] CLIA: [id number] [employer]: Maurice Coello M.D. Cholesterol.total/Camille sterol in HDL mass ratio 5.0 {ratio} Normal 3.2-5.0 [facility] Comment on above: Result Comment: Ryne orantes Coronary Heart Disease Risk Factor (CHDRF): Average risk= 4.4 1/2 Average risk= 3.3 2 times Average risk= 7.1 Performed By: #### C BCWOD, PT, PTT, DDIMR, EDCTNI, NTPROBNP, CHEM8, LIPASE, CMETADD #### Unless otherwise noted, all testing performed by [place] [address] CLIA: [id number] [employer]: Maurice Coello M.D. Triglyceride mass conc 209 mg/dL High 25-120 [facility] Comment on above: Performed By: #### C BCWOD, PT, PTT, DDIMR, EDCTNI, NTPROBNP, CHEM8, LIPASE, CMETADD #### Unless otherwise noted, all testing performed by [place] [address] CLIA: [id number] [employer]: Maurice Coello M.D. Troponin I.cardiac mass conc No Biomarker evidence of myocardial injury within the past 14 hours. Normal [facility] Comment on above: Performed By: #### C BCWOD, PT, PTT, DDIMR, EDCTNI, NTPROBNP, CHEM8, LIPASE, CMETADD #### Unless otherwise noted, all testing performed by [place] [address] CLIA: [id number] [employer]: Maurice Coello M.D. NT-Pro BNP, Serumon 06-20-20 18 Natriuretic peptide B mass conc (Bld) 494 pg/mL High 0-125 [facility] Comment on above: Performed By: #### C BCWOD, PT, PTT, DDIMR, EDCTNI, NTPROBNP, CHEM8, LIPASE, CMETADD #### Unless otherwise noted, all testing performed by [place] [address] CLIA: [id number] [employer]: Muarice Coello M.D. Partial Thromboplastin Timeo 06-20-2018 aPTT Coag time (Bld) 30 s Normal 23.0-34.[address] [facility] Comment on above: Result Comment: Uday silva therapeutic range for PTT is 68-104 sec. Performed By: #### C BCWOD, PT, PTT, DDIMR, EDCTNI, NTPROBNP, CHEM8, LIPASE, CMETADD #### Unless otherwise noted, all testing performed by [address] [place], [place] [address] CLIA: [id number] [employer]: Maurice Coello M.D. Protimeon 06-20-2018 INR Coag RelTime (PPP) 0.99 {INR} Normal [facility] Comment on above: Result Comment: The [employer] recommended therapeutic range for Warfarin (Coumadin) therapy goals: PROPHYLAXIS/TREATMENT of: INR Venous Thrombosis, Pulmonary Embolism 2.0-3.0 Prevention of VTE (Orthopedic Surgery) 2.0-3.0 Atrial Fibrillation 2.0-3.0 Myocardial Infarction 2.0-3.0 Mechanical Prosthetic Heart Valves (Aortic position) 2.0-3.0 Mechanical Prosthetic Heart Valves (Mitral Position) 2.5-3.5 [employer] evidence-based clinical practice guidelines. CHEST. 2012 (9th ed) Performed By: #### C BCWOD, PT, PTT, DDIMR, EDCTNI, NTPROBNP, CHEM8, LIPASE, CMETADD #### Unless otherwise noted, all testing performed by [place] [address] CLIA: [id number] [employer]: Maurice Coello M.D. Prothrombin time (PT) Coag time (PPP) 12.8 s Normal 11.8-14.3 [facility] Comment on above: Performed By: #### C BCWOD, PT, PTT, DDIMR, EDCTNI, NTPROBNP, CHEM8, LIPASE, CMETADD #### Unless otherwise noted, all testing performed by [place] [address] CLIA: [id number] [employer]: Maurice Coello M.D. Urinalysis, Routineon 2017 Bilirubin,Urine Negative Normal NEG;NEGATIVE [facility] Comment on above: Performed By: #### C BCWOD, PT, PTT, DDIMR, EDCTNI, NTPROBNP, CHEM8, LIPASE, CMETADD #### Unless otherwise noted, all testing performed by [place] [address] CLIA: [id number] [employer]: Maurice Coello M.D. Blood,Urine Negative Normal NEG;NEGATIVE [facility] Comment on above: Performed By: #### C BCWOD, PT, PTT, DDIMR, EDCTNI, NTPROBNP, CHEM8, LIPASE, CMETADD #### Unless otherwise noted, all testing performed by [place] [address] CLIA: [id number] [employer]: Maurice Coello M.D. Character Nom (U) Clear Normal [facility] Comment on above: Performed By: #### C BCWOD, PT, PTT, DDIMR, EDCTNI, NTPROBNP, CHEM8, LIPASE, CMETADD #### Unless otherwise noted, all testing performed by [place] [address] CLIA: [id number] [employer]: Maurice Coello M.D. Color Nom (U) Yellow Normal [facility] Comment on above: Performed By: #### C BCWOD, PT, PTT, DDIMR, EDCTNI, NTPROBNP, CHEM8, LIPASE, CMETADD #### Unless otherwise noted, all testing performed by [place] [address] CLIA: [id number] [employer]: Maurice Coello M.D. Glucose Ql (U) Negative Normal NEG;NEGATIVE [facility] Comment on above: Performed By: #### C BCWOD, PT, PTT, DDIMR, EDCTNI, NTPROBNP, CHEM8, LIPASE, CMETADD #### Unless otherwise noted, all testing performed by [place] [address] CLIA: [id number] [employer]: Maurice Coello M.D. Ketone,Urine Negative Normal NEG;NEGATIVE [facility] Comment on above: Performed By: #### C BCWOD, PT, PTT, DDIMR, EDCTNI, NTPROBNP, CHEM8, LIPASE, CMETADD #### Unless otherwise noted, all testing performed by [place] [address] CLIA: [id number] [employer]: Maurice Coello M.D. Leuk.Esterase,Urine Negative Normal Negative [facility] Comment on above: Performed By: #### C BCWOD, PT, PTT, DDIMR, EDCTNI, NTPROBNP, CHEM8, LIPASE, CMETADD #### Unless otherwise noted, all testing performed by [place] [address] CLIA: [id number] [employer]: Maurice Coello M.D. Nitrite,Urine Negative Normal NEG;NEGATIVE [facility] Comment on above: Performed By: #### C BCWOD, PT, PTT, DDIMR, EDCTNI, NTPROBNP, CHEM8, LIPASE, CMETADD #### Unless otherwise noted, all testing performed by [place] [address] CLIA: [id number] [employer]: Maurice Coello M.D. pH (U) 5.0 [pH] Normal 4.5-8.0 [facility] Comment on above: Performed By: #### C BCWOD, PT, PTT, DDIMR, EDCTNI, NTPROBNP, CHEM8, LIPASE, CMETADD #### Unless otherwise noted, all testing performed by [place] [address] CLIA: [id number] [employer]: Maurice Coello M.D. Protein mass conc (U) Negative Normal NEG;NEGATIVE [facility] Comment on above: Performed By: #### C BCWOD, PT, PTT, DDIMR, EDCTNI, NTPROBNP, CHEM8, LIPASE, CMETADD #### Unless otherwise noted, all testing performed by [place] [address] CLIA: [id number] [employer]: Maurice Coello M.D. Specific Cameron,Urine 1.004 Normal 1.003-1.029 [facility] Comment on above: Performed By: #### C BCWOD, PT, PTT, DDIMR, EDCTNI, NTPROBNP, CHEM8, LIPASE, CMETADD #### Unless otherwise noted, all testing performed by [place] [address] CLIA: [id number] [employer]: Maurice Coello M.D. Squamous Epithelial < 1 Normal 0-40 [facility] Comment on above: Performed By: #### C BCWOD, PT, PTT, DDIMR, EDCTNI, NTPROBNP, CHEM8, LIPASE, CMETADD #### Unless otherwise noted, all testing performed by [place] [address] CLIA: [id number] [employer]: Maurice Coello M.D. Urobilinogen,Urine < 2.0 Normal <2 [facility] Comment on above: Performed By: #### C BCWOD, PT, PTT, DDIMR, EDCTNI, NTPROBNP, CHEM8, LIPASE, CMETADD #### Unless otherwise noted, all testing performed by [facility] [address] [place] [address] CLIA: [id number] [employer]: Maurice Coello M.D. WBC LM.HPF #/area (Urine sed) /[HPF] Normal 0-5 [facility] Comment on above: Performed By: #### C BCWOD, PT, PTT, DDIMR, EDCTNI, NTPROBNP, CHEM8, LIPASE, CMETADD #### Unless otherwise noted, all testing performed by [facility] [address] [place] [address] CLIA: [id number] [employer]: Maurice Coello M.D. SHOULDER 2 OR MORE VIEWSon 0 05-18-2018 SHOULDER 2 OR MORE VIEWS Final Report Accession No: [id number] Performed: May 18 2018 9:38AM Examination: [...] CADENA M.D. Trans: n/a : cc: Normal [facility] BUN and Creatinineon 2 018 Creatinine 1.60 mg/dL High 0.40-1.10 [facility] Comment on above: Performed By: #### C BCWOD, PT, PTT, DDIMR, EDCTNI, NTPROBNP, CHEM8, LIPASE, CMETADD #### Unless otherwise noted, all testing performed by [place] [address] CLIA: [id number] [employer]: Maurice Coello M.D. eGFR (black) 40 mL/min/{1.73_m2} Low >60 [facility] Comment on above: Result Comment: Afri can Marshallese GFR Calc Performed By: #### C BCWOD, PT, PTT, DDIMR, EDCTNI, NTPROBNP, CHEM8, LIPASE, CMETADD #### Unless otherwise noted, all testing performed by [place] [address] CLIA: [id number] [employer]: Maurice Coello M.D. eGFR (non-black) 33 mL/min/{1.73_m2} Low >60 [facility] Comment on above: Result Comment: Non- [...] Unless otherwise noted, all testing performed by [place] [address] CLIA: [id number] [employer]: Maurice Coello M.D. Interpretation and review of laboratory results Abnormal Invalid Interpretation Code [facility] Urea nitrogen 14 mg/dL Normal 8-25 [facility] Comment on above: Performed By: #### C BCWOD, PT, PTT, DDIMR, EDCTNI, NTPROBNP, CHEM8, LIPASE, CMETADD #### Unless otherwise noted, all testing performed by [place] [address] CLIA: [id number] [employer]: Maurice Coello M.D. Electrolyte Panelon 02-06-20 18 Chloride 104 mmol/L Normal 98-108 [facility] Comment on above: Performed By: #### C BCWOD, PT, PTT, DDIMR, EDCTNI, NTPROBNP, CHEM8, LIPASE, CMETADD #### Unless otherwise noted, all testing performed by [place] [address] CLIA: [id number] [employer]: Maurice Coello M.D. CO2 27 mmol/L Normal 21-32 [facility] Comment on above: Performed By: #### C BCWOD, PT, PTT, DDIMR, EDCTNI, NTPROBNP, CHEM8, LIPASE, CMETADD #### Unless otherwise noted, all testing performed by [place] [address] CLIA: [id number] [employer]: Maurice Coello M.D. Potassium 4.5 mmol/L Normal 3.5-5.1 [facility] Comment on above: Performed By: #### C BCWOD, PT, PTT, DDIMR, EDCTNI, NTPROBNP, CHEM8, LIPASE, CMETADD #### Unless otherwise noted, all testing performed by [place] [address] CLIA: [id number] [employer]: Maurice Coello M.D. Sodium 139 mmol/L Normal 135-145 [facility] Comment on above: Performed By: #### C BCWOD, PT, PTT, DDIMR, EDCTNI, NTPROBNP, CHEM8, LIPASE, CMETADD #### Unless otherwise noted, all testing performed by [place] [address] CLIA: [id number] [employer]: Maurice Coello M.D. Hemoglobin and Hematocriton 02-05-2018 Hematocrit (HCT) 37.8 % Invalid Interpretation Code 34.4 - 44.8 % [facility] Hemoglobin (HGB) 12.2 g/dL Normal 11.6-15.[address] [facility] Comment on above: Performed By: #### C BCWOD, PT, PTT, DDIMR, EDCTNI, NTPROBNP, CHEM8, LIPASE, CMETADD #### Unless otherwise noted, all testing performed by [place] [address] CLIA: [id number] [employer]: Maurice Coello M.D. Hgb and Hcton 02-05-2018 Hematocrit Volume Fraction (Bld) 37.8 % Normal 34.4-44.8 [facility] Comment on above: Performed By: #### C BCWOD, PT, PTT, DDIMR, EDCTNI, NTPROBNP, CHEM8, LIPASE, CMETADD #### Unless otherwise noted, all testing performed by [place] [address] CLIA: [id number] [employer]: Maurice Coello M.D. Protein Panel, Urineon 02-05 Creatinine, Urine Random 67.60 mg/dL Normal [facility] Comment on above: Result Comment: No e stablished reference range. Performed By: #### C BCWOD, PT, PTT, DDIMR, EDCTNI, NTPROBNP, CHEM8, LIPASE, CMETADD #### Unless otherwise noted, all testing performed by [place] [address] CLIA: [id number] [employer]: Maurice Coello M.D. Interpretation and review of laboratory results Abnormal Invalid Interpretation Code [facility] Protein Creatinine Ratio 0.21 High 0.0-0.2 [facility] Comment on above: Performed By: #### C BCWOD, PT, PTT, DDIMR, EDCTNI, NTPROBNP, CHEM8, LIPASE, CMETADD #### Unless otherwise noted, all testing performed by [place] [address] CLIA: [id number] [employer]: Maurice Coello M.D. Protein mass conc (U) 14.3 mg/dL Normal [facility] Comment on above: Performed By: #### C BCWOD, PT, PTT, DDIMR, EDCTNI, NTPROBNP, CHEM8, LIPASE, CMETADD #### Unless otherwise noted, all testing performed by [place] [address] CLIA: [id number] [employer]: Maurice Coello M.D. Protein, Urine Random 14.3 mg/dL Invalid Interpretation Code [facility] Protein/Creatinine Ratio, Urine 0.21 1 High 0.0 - 0.2 [facility] Basic Metabolic Panelon - Calcium mass conc 8.4 mg/dL Normal 8.4-10.2 [facility] Comment on above: Performed By: #### C BCWOD, PT, PTT, DDIMR, EDCTNI, NTPROBNP, CHEM8, LIPASE, CMETADD #### Unless otherwise noted, all testing performed by [place] [address] CLIA: [id number] [employer]: Maurice Coello M.D. Chloride molar conc 107 mmol/L Normal 98-108 [facility] Comment on above: Performed By: #### C BCWOD, PT, PTT, DDIMR, EDCTNI, NTPROBNP, CHEM8, LIPASE, CMETADD #### Unless otherwise noted, all testing performed by [place] [address] CLIA: [id number] [employer]: Maurice Coello M.D. CO2 molar conc 24 mmol/L Normal 21-32 [facility] Comment on above: Performed By: #### C BCWOD, PT, PTT, DDIMR, EDCTNI, NTPROBNP, CHEM8, LIPASE, CMETADD #### Unless otherwise noted, all testing performed by [place] [address] CLIA: [id number] [employer]: Maurice Coello M.D. Creatinine mass conc 1.53 mg/dL High 0.40-1.[address] [facility] Comment on above: Performed By: #### C BCWOD, PT, PTT, DDIMR, EDCTNI, NTPROBNP, CHEM8, LIPASE, CMETADD #### Unless otherwise noted, all testing performed by [place] [address] CLIA: [id number] [employer]: Maurice Coello M.D. GFR/1.73 sq M predicted among blacks MDRD vol rate/area (S/P/Bld) 42 mL/min/{1.73_m2} Low >60 [facility] Comment on above: Result Comment: Afri can [employer] GFR Calc Performed By: #### C BCWOD, PT, PTT, DDIMR, EDCTNI, NTPROBNP, CHEM8, LIPASE, CMETADD #### Unless otherwise noted, all testing performed by [place] [address] CLIA: [id number] [employer]: Maurice Coello M.D. GFR/1.73 sq M predicted among non-blacks MDRD vol rate/area (S/P/Bld) 35 mL/min/{1.73_m2} Low >[address] [facility] Comment on above: Result Comment: Non- [...] Unless otherwise noted, all testing performed by [place] [address] CLIA: [id number] [employer]: Maurice Coello M.D. Glucose mass conc 147 mg/dL High 70-99 [facility] Comment on above: Result Comment: This test result might be falsely depressed or falsely elevated on samples drawn from patients taking Sulfasalazine and Sulfapyridine. Venipuncture should occur prior to taking either of these drugs. Performed By: #### C BCWOD, PT, PTT, DDIMR, EDCTNI, NTPROBNP, CHEM8, LIPASE, CMETADD #### Unless otherwise noted, all testing performed by [place] [address] CLIA: [id number] [employer]: Maurice Coello M.D. Potassium molar conc 5.3 mmol/L High 3.5-5.[address] [facility] Comment on above: Performed By: #### C BCWOD, PT, PTT, DDIMR, EDCTNI, NTPROBNP, CHEM8, LIPASE, CMETADD #### Unless otherwise noted, all testing performed by [place] [address] CLIA: [id number] [employer]: Maurice Coello M.D. Sodium molar conc 138 mmol/L Normal 135-145 [facility] Comment on above: Performed By: #### C BCWOD, PT, PTT, DDIMR, EDCTNI, NTPROBNP, CHEM8, LIPASE, CMETADD #### Unless otherwise noted, all testing performed by [place] [address] CLIA: [id number] [employer]: Maurice Coello M.D. Urea nitrogen mass conc 14 mg/dL Normal 8-25 [facility] Comment on above: Performed By: #### C BCWOD, PT, PTT, DDIMR, EDCTNI, NTPROBNP, CHEM8, LIPASE, CMETADD #### Unless otherwise noted, all testing performed by [place] [address] CLIA: [id number] [employer]: Maurice Coello M.D. CBC with Diffon 01-30-2018 Basophils #/vol (Bld) 0.0 K/mcL Normal 0-0.2 [facility] Comment on above: Performed By: #### C BCWOD, PT, PTT, DDIMR, EDCTNI, NTPROBNP, CHEM8, LIPASE, CMETADD #### Unless otherwise noted, all testing performed by [place] [address] CLIA: [id number] [employer]: Maurice Coello M.D. Basophils/100 WBC (Bld) 0.3 % Normal [facility] Comment on above: Performed By: #### C BCWOD, PT, PTT, DDIMR, EDCTNI, NTPROBNP, CHEM8, LIPASE, CMETADD #### Unless otherwise noted, all testing performed by [place] [address] CLIA: [id number] [employer]: Maurice Coello M.D. Eosinophils #/vol (Bld) 0.0 K/mcL Normal 0-0.5 [facility] Comment on above: Performed By: #### C BCWOD, PT, PTT, DDIMR, EDCTNI, NTPROBNP, CHEM8, LIPASE, CMETADD #### Unless otherwise noted, all testing performed by [place] [address] CLIA: [id number] [employer]: Maurice Coello M.D. Eosinophils/100 WBC (Bld) 0.1 % Normal [facility] Comment on above: Performed By: #### C BCWOD, PT, PTT, DDIMR, EDCTNI, NTPROBNP, CHEM8, LIPASE, CMETADD #### Unless otherwise noted, all testing performed by [place] [address] CLIA: [id number] [employer]: Maurice Coello M.D. Erythrocyte distribution width Ratio (RBC) 17.8 % High 10.0-14.4 [facility] Comment on above: Performed By: #### C BCWOD, PT, PTT, DDIMR, EDCTNI, NTPROBNP, CHEM8, LIPASE, CMETADD #### Unless otherwise noted, all testing performed by [place] [address] CLIA: [id number] [employer]: Maurice Coello M.D. Hematocrit Volume Fraction (Bld) 34.8 % Normal 34.4-44.8 [facility] Comment on above: Performed By: #### C BCWOD, PT, PTT, DDIMR, EDCTNI, NTPROBNP, CHEM8, LIPASE, CMETADD #### Unless otherwise noted, all testing performed by [facility] [place] [address] CLIA: [id number] [employer]: Maurice Coello M.D. Hemoglobin mass conc (Bld) 11.3 g/dL Low 11.6-15.4 [facility] Comment on above: Performed By: #### C BCWOD, PT, PTT, DDIMR, EDCTNI, NTPROBNP, CHEM8, LIPASE, CMETADD #### Unless otherwise noted, all testing performed by [place] [address] CLIA: [id number] [employer]: Maurice Coello M.D. Lymphocytes #/vol (Bld) 0.6 K/mcL Low 1.0-3.7 [facility] Comment on above: Performed By: #### C BCWOD, PT, PTT, DDIMR, EDCTNI, NTPROBNP, CHEM8, LIPASE, CMETADD #### Unless otherwise noted, all testing performed by [place] [address] CLIA: [id number] [employer]: Maurice Coello M.D. Lymphocytes/100 WBC (Bld) 8.3 % Normal [facility] Comment on above: Performed By: #### C BCWOD, PT, PTT, DDIMR, EDCTNI, NTPROBNP, CHEM8, LIPASE, CMETADD #### Unless otherwise noted, all testing performed by [place] [address] CLIA: [id number] [employer]: Maurice Coello M.D. MCH Entitic mass (RBC) 26.1 pg Low 27.9-33.9 [facility] Comment on above: Performed By: #### C BCWOD, PT, PTT, DDIMR, EDCTNI, NTPROBNP, CHEM8, LIPASE, CMETADD #### Unless otherwise noted, all testing performed by [place] [address] CLIA: [id number] [employer]: Maurice Coello M.D. MCHC mass conc (RBC) 32.5 g/dL Low 33.1-35.[address] [facility] Comment on above: Performed By: #### C BCWOD, PT, PTT, DDIMR, EDCTNI, NTPROBNP, CHEM8, LIPASE, CMETADD #### Unless otherwise noted, all testing performed by [place] [address] CLIA: [id number] [employer]: Maurice Coello M.D. MCV Entitic volume (RBC) 80.3 fL Low 82.6-98.9 [facility] Comment on above: Performed By: #### C BCWOD, PT, PTT, DDIMR, EDCTNI, NTPROBNP, CHEM8, LIPASE, CMETADD #### Unless otherwise noted, all testing performed by [place] [address] CLIA: [id number] [employer]: Maurice Coello M.D. Monocytes #/vol (Bld) 0.1 K/mcL Normal 0.1-0.6 [facility] Comment on above: Performed By: #### C BCWOD, PT, PTT, DDIMR, EDCTNI, NTPROBNP, CHEM8, LIPASE, CMETADD #### Unless otherwise noted, all testing performed by [place] [address] CLIA: [id number] [employer]: Maurice Coello M.D. Monocytes/100 WBC (Bld) 0.7 % Normal [facility] Comment on above: Performed By: #### C BCWOD, PT, PTT, DDIMR, EDCTNI, NTPROBNP, CHEM8, LIPASE, CMETADD #### Unless otherwise noted, all testing performed by [place] [address] CLIA: [id number] [employer]: Maurice Coello M.D. Neutrophils #/vol (Bld) 6.8 K/mcL Normal 1.2-6.9 [facility] Comment on above: Performed By: #### C BCWOD, PT, PTT, DDIMR, EDCTNI, NTPROBNP, CHEM8, LIPASE, CMETADD #### Unless otherwise noted, all testing performed by [place] [address] CLIA: [id number] [employer]: Maurice Coello M.D. Platelet mean volume Entitic volume (Bld) 8.3 fL Normal 7.0-10.6 [facility] Comment on above: Performed By: #### C BCWOD, PT, PTT, DDIMR, EDCTNI, NTPROBNP, CHEM8, LIPASE, CMETADD #### Unless otherwise noted, all testing performed by [place] [address] CLIA: [id number] [employer]: Maurice Coello M.D. Platelets #/vol (Bld) 281 K/mcL Normal 162-402 [facility] Comment on above: Performed By: #### C BCWOD, PT, PTT, DDIMR, EDCTNI, NTPROBNP, CHEM8, LIPASE, CMETADD #### Unless otherwise noted, all testing performed by [place] [address] CLIA: [id number] [employer]: Maurice Coello M.D. RBC #/vol (Bld) 4.34 M/mcL Normal 3.7-5.0 [facility] Comment on above: Performed By: #### C BCWOD, PT, PTT, DDIMR, EDCTNI, NTPROBNP, CHEM8, LIPASE, CMETADD #### Unless otherwise noted, all testing performed by [place] [address] CLIA: [id number] [employer]: Maurice Coello M.D. Segmented Neut % 90.6 % Normal [facility] Comment on above: Performed By: #### C BCWOD, PT, PTT, DDIMR, EDCTNI, NTPROBNP, CHEM8, LIPASE, CMETADD #### Unless otherwise noted, all testing performed by [place] [address] CLIA: [id number] [employer]: Maurice Coello M.D. WBC #/vol (Bld) 7.5 K/mcL Normal 3.4-10.6 [facility] Comment on above: Performed By: #### C BCWOD, PT, PTT, DDIMR, EDCTNI, NTPROBNP, CHEM8, LIPASE, CMETADD #### Unless otherwise noted, all testing performed by [place] [address] CLIA: [id number] [employer]: Maurice Coello M.D. Cardiac Troponin-Ion 01-30-2 018 Troponin I.cardiac mass conc No Biomarker evidence of myocardial injury within the past 14 hours. Normal [facility] Comment on above: Performed By: #### C BCWOD, PT, PTT, DDIMR, EDCTNI, NTPROBNP, CHEM8, LIPASE, CMETADD #### Unless otherwise noted, all testing performed by [place] [address] CLIA: [id number] [employer]: Maurice Coello M.D. Troponin I.cardiac mass conc ng/mL Normal < 45.0 [facility] Comment on above: Result Comment: Elev ation [...] Unless otherwise noted, all testing performed by [place] [address] CLIA: [id number] [employer]: Maurice Coello M.D. Troponin I.cardiac mass conc No Biomarker evidence of myocardial injury within the past 14 hours. Normal [facility] Comment on above: Performed By: #### C BCWOD, PT, PTT, DDIMR, EDCTNI, NTPROBNP, CHEM8, LIPASE, CMETADD #### Unless otherwise noted, all testing performed by [place] [address] CLIA: [id number] [employer]: Maurice Coello M.D. LUNG VENTILATION AND PERFUSI ONon 01-30-2018 LUNG VENTILATION AND PERFUSION Final Report Accession No: [id number] Performed: Jan 30 2018 2:17PM Examination: [...] PEREZ M.D. Trans: [email or web address] : cc: Normal [facility] Basic Metabolic Panelon 03-2 Calcium mass conc 8.9 mg/dL Normal 8.4-10.2 [facility] Comment on above: Performed By: #### C BCWOD, PT, PTT, DDIMR, EDCTNI, NTPROBNP, CHEM8, LIPASE, CMETADD #### Unless otherwise noted, all testing performed by [place] [address] CLIA: [id number] [employer]: Maurice Coello M.D. Chloride molar conc 104 mmol/L Normal 98-108 [facility] Comment on above: Performed By: #### C BCWOD, PT, PTT, DDIMR, EDCTNI, NTPROBNP, CHEM8, LIPASE, CMETADD #### Unless otherwise noted, all testing performed by [place] [address] CLIA: [id number] [employer]: Maurice Coello M.D. CO2 molar conc 27 mmol/L Normal 21-32 [facility] Comment on above: Performed By: #### C BCWOD, PT, PTT, DDIMR, EDCTNI, NTPROBNP, CHEM8, LIPASE, CMETADD #### Unless otherwise noted, all testing performed by [place] [address] CLIA: [id number] [employer]: Maurice Coello M.D. Creatinine mass conc 1.66 mg/dL High 0.40-1.[address] [facility] Comment on above: Performed By: #### C BCWOD, PT, PTT, DDIMR, EDCTNI, NTPROBNP, CHEM8, LIPASE, CMETADD #### Unless otherwise noted, all testing performed by [place] [address] CLIA: [id number] [employer]: Maurice Coello M.D. GFR/1.73 sq M predicted among blacks MDRD vol rate/area (S/P/Bld) 38 mL/min/{1.73_m2} Low >60 [facility] Comment on above: Result Comment: Afri can [employer] GFR Calc Performed By: #### C BCWOD, PT, PTT, DDIMR, EDCTNI, NTPROBNP, CHEM8, LIPASE, CMETADD #### Unless otherwise noted, all testing performed by [place] [address] CLIA: [id number] [employer]: Maurice Coello M.D. GFR/1.73 sq M predicted among non-blacks MDRD vol rate/area (S/P/Bld) 32 mL/min/{1.73_m2} Low >[address] [facility] Comment on above: Result Comment: Non- [...] Unless otherwise noted, all testing performed by [place] [address] CLIA: [id number] [employer]: Maurice Coello M.D. Glucose mass conc 124 mg/dL High 70-99 [facility] Comment on above: Result Comment: This test result might be falsely depressed or falsely elevated on samples drawn from patients taking Sulfasalazine and Sulfapyridine. Venipuncture should occur prior to taking either of these drugs. Performed By: #### C BCWOD, PT, PTT, DDIMR, EDCTNI, NTPROBNP, CHEM8, LIPASE, CMETADD #### Unless otherwise noted, all testing performed by [place] [phone] CLIA: [id number] [employer]: Maurice Coello M.D. Potassium molar conc 4.5 mmol/L Normal 3.5-5.[address] [facility] Comment on above: Performed By: #### C BCWOD, PT, PTT, DDIMR, EDCTNI, NTPROBNP, CHEM8, LIPASE, CMETADD #### Unless otherwise noted, all testing performed by [place] [address] CLIA: [id number] [employer]: Maurice Coello M.D. Sodium molar conc 137 mmol/L Normal 135-145 [facility] Comment on above: Performed By: #### C BCWOD, PT, PTT, DDIMR, EDCTNI, NTPROBNP, CHEM8, LIPASE, CMETADD #### Unless otherwise noted, all testing performed by [place] [address] CLIA: [id number] [employer]: Maurice Coello M.D. Urea nitrogen mass conc 15 mg/dL Normal 8-25 [facility] Comment on above: Performed By: #### C BCWOD, PT, PTT, DDIMR, EDCTNI, NTPROBNP, CHEM8, LIPASE, CMETADD #### Unless otherwise noted, all testing performed by [facility] [place] [address] CLIA: [id number] [employer]: Maurice Coello M.D. CBC w/o Diffon 01-29-2018 Erythrocyte distribution width Ratio (RBC) 17.5 % High 10.0-14.4 [facility] Comment on above: Performed By: #### C BCWOD, PT, PTT, DDIMR, EDCTNI, NTPROBNP, CHEM8, LIPASE, CMETADD #### Unless otherwise noted, all testing performed by [place] [address] CLIA: [id number] [employer]: Maurice Coello M.D. Hematocrit Volume Fraction (Bld) 38.5 % Normal 34.4-44.8 [facility] Comment on above: Performed By: #### C BCWOD, PT, PTT, DDIMR, EDCTNI, NTPROBNP, CHEM8, LIPASE, CMETADD #### Unless otherwise noted, all testing performed by [place] [address] CLIA: [id number] [employer]: Maurice Coello M.D. Hemoglobin mass conc (Bld) 12.7 g/dL Normal 11.6-15.4 [facility] Comment on above: Performed By: #### C BCWOD, PT, PTT, DDIMR, EDCTNI, NTPROBNP, CHEM8, LIPASE, CMETADD #### Unless otherwise noted, all testing performed by [place] [address] CLIA: [id number] [employer]: Maurice Coello M.D. MCH Entitic mass (RBC) 26.1 pg Low 27.9-33.9 [facility] Comment on above: Performed By: #### C BCWOD, PT, PTT, DDIMR, EDCTNI, NTPROBNP, CHEM8, LIPASE, CMETADD #### Unless otherwise noted, all testing performed by [place] [address] CLIA: [id number] [employer]: Maurice Coello M.D. [facility] conc (RBC) 32.9 g/dL Low 33.1-35.[address] [facility] Comment on above: Performed By: #### C BCWOD, PT, PTT, DDIMR, EDCTNI, NTPROBNP, CHEM8, LIPASE, CMETADD #### Unless otherwise noted, all testing performed by [place] [address] CLIA: [id number] [employer]: Maurice Coello M.D. MCV Entitic volume (RBC) 79.4 fL Low 82.6-98.9 [facility] Comment on above: Performed By: #### C BCWOD, PT, PTT, DDIMR, EDCTNI, NTPROBNP, CHEM8, LIPASE, CMETADD #### Unless otherwise noted, all testing performed by [place] [address] CLIA: [id number] [employer]: Maurice Coello M.D. Platelet mean volume Entitic volume (Bld) 7.8 fL Normal 7.0-10.6 [facility] Comment on above: Performed By: #### C BCWOD, PT, PTT, DDIMR, EDCTNI, NTPROBNP, CHEM8, LIPASE, CMETADD #### Unless otherwise noted, all testing performed by [place] [address] CLIA: [id number] [employer]: Maurice Coello M.D. Platelets #/vol (Bld) 351 K/mcL Normal 162-402 [facility] Comment on above: Performed By: #### C BCWOD, PT, PTT, DDIMR, EDCTNI, NTPROBNP, CHEM8, LIPASE, CMETADD #### Unless otherwise noted, all testing performed by [place] [address] CLIA: [id number] [employer]: Maurice Coello M.D. RBC #/vol (Bld) 4.84 M/mcL Normal 3.7-5.0 [facility] Comment on above: Performed By: #### C BCWOD, PT, PTT, DDIMR, EDCTNI, NTPROBNP, CHEM8, LIPASE, CMETADD #### Unless otherwise noted, all testing performed by [place] [address] CLIA: [id number] [employer]: Maurice Coello M.D. WBC #/vol (Bld) 7.6 K/mcL Normal 3.4-10.6 [facility] Comment on above: Performed By: #### C BCWOD, PT, PTT, DDIMR, EDCTNI, NTPROBNP, CHEM8, LIPASE, CMETADD #### Unless otherwise noted, all testing performed by [place] [address] CLIA: [id number] [employer]: Maurice Coello M.D. CHEST (ONE VIEW ONLY)on 01-05 CHEST (ONE VIEW ONLY) Final Report Accession No: [id number] Performed: Jan 29 2018 6:55PM Examination: [...] SCHMITZ M.D. Trans: [email or web address] : cc: Normal [facility] CMET Add-On Testson 01-30-20 18 Albumin mass conc 3.7 g/dL Normal 3.2-5.2 [facility] Comment on above: Performed By: #### C BCWOD, PT, PTT, DDIMR, EDCTNI, NTPROBNP, CHEM8, LIPASE, CMETADD #### Unless otherwise noted, all testing performed by [place] [address] CLIA: [id number] [employer]: Maurice Coello M.D. ALP enzyme act/vol 107 U/L Normal 40-150 [facility] Comment on above: Performed By: #### C BCWOD, PT, PTT, DDIMR, EDCTNI, NTPROBNP, CHEM8, LIPASE, CMETADD #### Unless otherwise noted, all testing performed by [place] [address] CLIA: [id number] [employer]: Maurice Coello M.D. ALT enzyme act/vol 29 U/L Normal 14-65 [facility] Comment on above: Result Comment: This test result might be falsely depressed or falsely elevated on samples drawn from patients taking Sulfasalazine and Sulfapyridine. Venipuncture should occur prior to taking either of these drugs. Performed By: #### C BCWOD, PT, PTT, DDIMR, EDCTNI, NTPROBNP, CHEM8, LIPASE, CMETADD #### Unless otherwise noted, all testing performed by [place] [address] CLIA: [id number] [employer]: Maurice Coello M.D. AST enzyme act/vol 21 U/L Normal 0-45 [facility] Comment on above: Result Comment: This test result might be falsely depressed or falsely elevated on samples drawn from patients taking Sulfasalazine and Sulfapyridine. Venipuncture should occur prior to taking either of these drugs. Performed By: #### C BCWOD, PT, PTT, DDIMR, EDCTNI, NTPROBNP, CHEM8, LIPASE, CMETADD #### Unless otherwise noted, all testing performed by [place] [address] CLIA: [id number] [employer]: Maurice Coello M.D. Bilirubin mass conc 0.2 mg/dL Low 0.3-1.2 [facility] Comment on above: Performed By: #### C BCWOD, PT, PTT, DDIMR, EDCTNI, NTPROBNP, CHEM8, LIPASE, CMETADD #### Unless otherwise noted, all testing performed by [place] [address] CLIA: [id number] [employer]: Maurice Coello M.D. Protein mass conc 8.2 g/dL High 6.0-8.0 [facility] Comment on above: Performed By: #### C BCWOD, PT, PTT, DDIMR, EDCTNI, NTPROBNP, CHEM8, LIPASE, CMETADD #### Unless otherwise noted, all testing performed by [place] [address] CLIA: [id number] [employer]: Maurice Coello M.D. Cardiac Troponin-Ion 018 Troponin I.cardiac mass conc ng/mL Normal < 45 [facility] Comment on above: Result Comment: Elev ation [...] Unless otherwise noted, all testing performed by [place] [address] CLIA: [id number] [employer]: Maurice Coello M.D. D-Dimeron 01-29-2018 D-Dimer 1.88 mcg/ml (FEU) High < .5 [facility] Comment on above: Result Comment: This test is intended for use in conjunction with a clinical pretest probability (PTP) assessment model to exclude pulmonary embolism (PE) and deep vein thrombosis (DVT) in outpatients suspected of PE or DVT. Performed By: #### C BCWOD, PT, PTT, DDIMR, EDCTNI, NTPROBNP, CHEM8, LIPASE, CMETADD #### Unless otherwise noted, all testing performed by [place] [address] CLIA: [id number] [employer]: Maurice Coello M.D. Lactic Acidon 01-29-2018 Lactate molar conc 1.3 mmol/L Normal 0.6-2.0 [facility] Comment on above: Performed By: #### C BCWOD, PT, PTT, DDIMR, EDCTNI, NTPROBNP, CHEM8, LIPASE, CMETADD #### Unless otherwise noted, all testing performed by [place] [address] CLIA: [id number] [employer]: Maurice Coello M.D. Lipaseon 01-29-2018 Lipase enzyme act/vol 250 U/L Normal 73-393 [facility] Comment on above: Performed By: #### C BCWOD, PT, PTT, DDIMR, EDCTNI, NTPROBNP, CHEM8, LIPASE, CMETADD #### Unless otherwise noted, all testing performed by [place] [address] CLIA: [id number] [employer]: Maurice Coello M.D. NT-Pro BNP, Serumon 01-30-20 18 Natriuretic peptide B mass conc (Bld) 97 pg/mL Normal 0-125 [facility] Comment on above: Performed By: #### C BCWOD, PT, PTT, DDIMR, EDCTNI, NTPROBNP, CHEM8, LIPASE, CMETADD #### Unless otherwise noted, all testing performed by [place] [address] CLIA: [id number] [employer]: Maurice Coello M.D. Partial Thromboplastin Timeo n 01-29-2018 aPTT Coag time (Bld) 31 s Normal 23.0-34.[address] [facility] Comment on above: Result Comment: Uday silva therapeutic range for PTT is 68-104 sec. Performed By: #### C BCWOD, PT, PTT, DDIMR, EDCTNI, NTPROBNP, CHEM8, LIPASE, CMETADD #### Unless otherwise noted, all testing performed by [place] [address] CLIA: [id number] [employer]: Maurice Coello M.D. Protimeon 01-29-2018 INR Coag RelTime (PPP) 0.93 {INR} Normal [facility] Comment on above: Result Comment: The [employer] recommended therapeutic range for Warfarin (Coumadin) therapy goals: PROPHYLAXIS/TREATMENT of: INR Venous Thrombosis, Pulmonary Embolism 2.0-3.0 Prevention of VTE (Orthopedic Surgery) 2.0-3.0 Atrial Fibrillation 2.0-3.0 Myocardial Infarction 2.0-3.0 Mechanical Prosthetic Heart Valves (Aortic position) 2.0-3.0 Mechanical Prosthetic Heart Valves (Mitral Position) 2.5-3.5 [employer] evidence-based clinical practice guidelines. CHEST. 2012 (9th ed) Performed By: #### C BCWOD, PT, PTT, DDIMR, EDCTNI, NTPROBNP, CHEM8, LIPASE, CMETADD #### Unless otherwise noted, all testing performed by [place] [address] CLIA: [id number] [employer]: Maurice Coello M.D. Prothrombin time (PT) Coag time (PPP) 12.1 s Normal 11.8-14.3 [facility] Comment on above: Performed By: #### C BCWOD, PT, PTT, DDIMR, EDCTNI, NTPROBNP, CHEM8, LIPASE, CMETADD #### Unless otherwise noted, all testing performed by [place] [address] CLIA: [id number] [employer]: Maurice Coello M.D. TSHon 01-12-2018 Interpretation and review of laboratory results Abnormal Invalid Interpretation Code [facility] Thyroid stimulating hormone (TSH) 24.40 uIU/mL High 0.320 - 5.000 [facility] Thyroxine (T4) free 1.0 ng/dL Invalid Interpretation Code 0.76 - 1.79 ng/dL [facility] CBC with DIFFERENTIALon - Basophils Auto #/vol (Bld) 0.04 10*3/uL Normal <=0.70 [facility] Comment on above: Performed By: #### 5 7021-8 ####[facility], [place] [address] Director - Gail Allison [id number] Basophils/100 WBC Auto (Bld) 0.3 % Normal <=2.0 [facility] Comment on above: Performed By: #### 5 7021-8 ####[facility] Director - Gail Allison [id number] Eosinophils 0.04 10*3/uL Normal <=0.70 [facility] Comment on above: Performed By: #### 5 7021-8 ####[facility] Director - Gail Allison [id number] Eosinophils/100 leukocytes 0.3 % Normal <=10.0 [facility] Comment on above: Performed By: #### 5 7021-8 ####[facility] Director - Gail Allison [id number] Erythrocyte distribution width Auto Entitic volume (RBC) 46.7 fL High 36.4-46.3 [facility] Comment on above: Performed By: #### 5 7021-8 ####[place] [address] Director - Gail Allison [id number] Erythrocytes (RBC) 4.90 10*6/uL Normal 4.00-6.30 [facility] [facility] Comment on above: Performed By: #### 5 7021-8 ####[facility] Director - Gail Allison [id number] Hematocrit (HCT) 38.1 % Normal 37.0-47.0 [facility] Comment on above: Performed By: #### 5 7021-8 ####[facility] Director - Gail Allison [id number] Hemoglobin mass conc (Bld) 12.2 g/dL Normal 12.0-16.0 [facility] Comment on above: Performed By: #### 5 7021-8 ####[facility] Director - Gail Allison [id number] Immature granulocytes #/vol (Bld) 0.03 10*3/uL Normal <=0.10 [facility] Comment on above: Performed By: #### 5 7021-8 ####[facility] Director - Gail Allison [id number] Immature granulocytes/100 WBC (Bld) 0.30 % Normal <=1.50 [facility] Comment on above: Performed By: #### 5 7021-8 ####[facility] Director - Gail Allison [id number] Lymphocytes 1.42 10*3/uL Normal 1.20-3.40 [facility] Comment on above: Performed By: #### 5 7021-8 ####[place] [address] Director - Gail Allison [id number] Lymphocytes/100 leukocytes 11.9 % Low 20.0-40.0 [facility] Comment on above: Performed By: #### 5 7021-8 ####[facility] Director - Gail Allison [id number] MCH 24.9 pg Low 27.0-31.0 [facility] Comment on above: Performed By: #### 5 7021-8 ####[facility] Director - Gail Allison [id number] MCHC mass conc (RBC) 32.0 g/dL Normal 32.0-36.0 [facility] Comment on above: Performed By: #### 5 7021-8 ####[facility] Director - Gail Allison [id number] MCV 77.8 fL Low 80.0-100.0 [facility] Comment on above: Performed By: #### 5 7021-8 ####[facility], [place] [address]Zttpjwl Director - Gail RohanrellCLIA [id number] Monocytes 0.53 10*3/uL Normal 0.10-0.60 [facility] Comment on above: Performed By: #### 5 7021-8 ####[facility], [place] [address]Hiddtgy Director - Gail FarrellCLIA [id number] Monocytes/100 leukocytes 4.5 % Normal <=8.0 [facility] Comment on above: Performed By: #### 5 7021-8 ####[facility], [place] [address]Ujgzsms Director - Gail RohanrellCLIA [id number] Neutrophils 9.84 10*3/uL High 1.40-6.50 [facility] Comment on above: Performed By: #### 5 7021-8 ####[place] [address] Director - Gail RohanrellCLIA [id number] Neutrophils/100 WBC Auto (Bld) 82.7 % High 50.0-70.0 [facility] Comment on above: Performed By: #### 5 7021-8 ####[facility], [place] [address]Xrdupbl Director - Gailpaulo MadrigalrellBERRYIA [id number] Nucleated erythrocytes 0.00 10*3/uL Normal <=0.10 [facility] Comment on above: Performed By: #### 5 7021-8 ####[facility] Director - Gail FarrellCLIA [id number] Platelet mean volume (PMV) 10.2 fL Normal 9.0-13.0 [facility] Comment on above: Performed By: #### 5 7021-8 ####[facility] Director - Gail FarrellCLIA [id number] Platelets 269 10*3/uL Normal 130-400 [facility] Comment on above: Performed By: #### 5 7021-8 ####[facility], [place] [address]Yvcwaaz Director - Gail Allison [id number] WBC (Leukocytes) 11.90 10*3/uL High 4.80-10.80 [facility] Comment on above: Performed By: #### 5 7021-8 ####[facility] Director - Gail Allison [id number] [facility] Creatine kinase (CK) 617 U/L High 21-215 [facility] Comment on above: Performed By: #### 2 157-6, 62747-1, 3040-3 ####[facility] Director - Gail Allison [id number] COMPREHENSIVE METABOLIC PANE [facility] 11-02-2017 Alanine aminotransferase (ALT) 31 U/L Normal 14-59 [facility] Comment on above: Performed By: #### 2 157-6, 08231-7, 3040-3 ####[facility] Director - Gail Allison [id number] Albumin 3.7 g/dL Normal 3.4-5.0 [facility] Comment on above: Performed By: #### 2 157-6, 70355-1, 3040-3 ####[facility] Director - Gail Allison [id number] Alkaline phosphatase (ALP) 109 U/L Normal 50-136 [facility] Comment on above: Performed By: #### 2 157-6, 30231-4, 3040-3 ####[facility] Director - Gail Allison [id number] Anion gap 7.0 mmol/L Normal <=15.0 [facility] Comment on above: Performed By: #### 2 157-6, 55861-1, 0-3 ####[facility], [place] [address]Oerzbvz Director - Gail Allison [id number] Aspartate aminotransferase (AST) 34 U/L Normal 15-37 [facility] Comment on above: Performed By: #### 2 157-6, 02140-5, 0-3 ####[facility], [place] [address]Utnjwar Director - Gail Allison [id number] Bilirubin (total) 0.3 mg/dL Normal 0.2-1.0 [facility] Comment on above: Performed By: #### 2 157-6, 50754-9, 0-3 ####[facility], [place] [address]Nubsewc Director - Gail Allison [id number] Calcium 9.1 mg/dL Normal 8.5-10.1 [facility] Comment on above: Performed By: #### 2 157-6, 22379-1, 0-3 ####[facility], [place] [address]Gacudrs Director - Gailpaulo ThompsonCLIA [id number] Chloride 102 mmol/L Normal 98-107 [facility] Comment on above: Performed By: #### 2 157-6, 97665-4, 0-3 ####[facility], [place] [address]Ulzvwhs Director - Gailpaulo MadrigalrellCLIA [id number] CO2 27 mmol/L Normal 21-32 [facility] Comment on above: Performed By: #### 2 157-6, 55768-8, 0-3 ####[facility], [place] [address]Epeupez Director - Gailpaulo MadrigalrellCLIA [id number] Creatinine 1.34 mg/dL High 0.51-0.95 [facility] Comment on above: Performed By: #### 2 157-6, 30150-8, 0-3 ####[facility], [place] [address]Pstvapb Director - Gail Allison [id number] eGFR (MDRD) 40 mL/min/{1.73_m2} Low >=59 [facility] Comment on above: Performed By: #### 2 157-6, 07647-1, 0-3 ####[place] [address] Director - Gail Allison [id number] eGFR (non-black) GLOMERULAR FILTRATIO N RATE INTERPRETATION~The [...] months, with or without kidney damage.~ Normal [facility] Comment on above: Performed By: #### 2 157-6, 93357-5, 3039-3 ####[place] [address] Director - Gail Allison [id number] Glucose mass conc 115 mg/dL High 74-106 [facility] Comment on above: Performed By: #### 2 157-6, 01233-7, 3039-3 ####[facility] Director - Gail Allison [id number] Potassium molar conc 4.3 mmol/L Normal 3.5-5.1 [facility] Comment on above: Performed By: #### 2 157-6, 59208-3, 3039-3 ####[place] [address], [place] [address]Kotmheh Director - Gail Allison [id number] Protein 7.7 g/dL Normal 6.4-8.2 [facility] Comment on above: Performed By: #### 2 157-6, 00313-4, 3040-3 ####[facility], [place] [address]Sqruokx Director - Gail Allison [id number] Sodium 136 mmol/L Normal 136-145 [facility] Comment on above: Performed By: #### 2 157-6, 30843-0, 3040-3 ####[facility] Director - Gail Allison [id number] Urea nitrogen 17 mg/dL Normal 7-17 [facility] Comment on above: Performed By: #### 2 157-6, 68278-4, 0-3 ####[facility] Director - Gail Allison [id number] LACTATEon 11-02-2017 Lactate 0.6 mmol/L Normal 0.4-2.0 [facility] Comment on above: Performed By: #### 2 524-7 ####[facility], [place] [address]Ymyemba Director - Gail Allison [id number] LIPASEon 11-02-2017 Lipase 183 U/L Normal 73-393 [facility] Comment on above: Performed By: #### 2 157-6, 30240-3, 3040-3 ####[facility], [place] [address]Rwsatwy Director - Gail Allison [id number] PT with INRon 11-02-2017 INR Coag RelTime (Bld) INR REFERENCE RAN GE INTERPRETATION Patients on Coumadin 2.0 - 3.0 Patients with mechanical heart valves 2.5 - 3.5 Normal [facility] Comment on above: Performed By: #### 5 902-2, 89838-9 ####[facility], [place] [address]Nnnaqpy Director - Gail Allison [id number] INR Coag RelTime (PPP) 1.0 {INR} Normal 0.8-1.1 [facility] Comment on above: Performed By: #### 5 902-2, 84875-3 ####[facility] Director - Gail Allison [id number] Prothrombin time (PT) Coag time (PPP) 10.6 Secs Normal 9.3-11.5 [facility] Comment on above: Performed By: #### 5 902-2, 56059-7 ####[facility] Director - Gail Allison [id number] PTTon 11-02-2017 aPTT 27.6 Sec Normal 23.5-31.3 [facility] Comment on above: Performed By: #### 5 902-2, 33611-8 ####[facility], [place] [address]Lfkfpan Director - Gail Allison [id number] BUN and Creatinineon 017 Creatinine 1.53 mg/dL High 0.4 - 1.1 mg/dL [facility] eGFR (black) 42 mL/min/{1.73_m2} Low >60 [facility] eGFR (non-black) 35 mL/min/{1.73_m2} Low >60 [facility] Interpretation and review of laboratory results Abnormal Invalid Interpretation Code [facility] Urea nitrogen 15 mg/dL Invalid Interpretation Code 8 - 25 mg/dL [facility] Calcium Levelon 07-05-2017 Calcium 9.0 mg/dL Invalid Interpretation Code 8.4 - 10.2 mg/dL [facility] Electrolyte Panelon 07-05-20 17 Chloride 104 mmol/L Invalid Interpretation Code 98 - 108 mmol/L [facility] CO2 23 mmol/L Invalid Interpretation Code 21 - 32 mmol/L [facility] Potassium 4.7 mmol/L Invalid Interpretation Code 3.5 - 5.1 mmol/L [facility] Sodium 136 mmol/L Invalid Interpretation Code 135 - 145 mmol/L [facility] Hemoglobin and Hematocriton 07-05-2017 Hematocrit (HCT) 37.0 % Invalid Interpretation Code 34.4 - 44.8 % [facility] Hemoglobin (HGB) 12.1 g/dL Invalid Interpretation Code 11.6 - 15.4 g/dL [facility] Parathyroid Hormoneon 2016 Parathyroid Hormone 90.3 pg/mL High 14.1 - 7 2 pg/mL [facility] Protein Panel, Urineon 07-05 Creatinine, Urine Random 64.80 mg/dL Invalid Interpretation Code [facility] Interpretation and review of laboratory results Abnormal Invalid Interpretation Code [facility] Protein, Urine Random 15.5 mg/dL Invalid Interpretation Code [facility] Protein/Creatinine Ratio, Urine 0.24 1 High 0.0 - 0.2 [facility] TSHon 07-05-2017 Thyroid stimulating hormone (TSH) 0.90 uIU/mL Invalid Interpretation Code 0.320 - 5.000 [facility] Vitamin D, Total, 25-OHon Vitamin D, 25-Hydroxy, Total 26.6 ng/mL Invalid Interpretation Code [facility] Vital Signs Date Time Vital Sign Value Performing Clinician Facility 07-17-2025 23:08-0400 Body temperature 98.1 [degF] Dr. Jennifer Gordon MD Work Phone: [facility] [place] 07-17-2025 23:08-0400 Diastolic blood pressure 91 mm[Hg] Dr. Jennifer Gordon MD Work Phone: [facility] [place] 07-17-2025 23:08-0400 Heart rate 69 /min Dr. Jennifer Gordon MD Work Phone: [facility] [place] 07-17-2025 23:08-0400 Respiratory rate 18 /min Dr. Jennifer Gordon MD Work Phone: [facility] [place] 07-17-2025 23:08-0400 SaO2% (BldA) [Mass fraction] 97 % Dr. Jennifer Gordon MD Work Phone: [facility] [place] 07-17-2025 23:08-0400 Systolic blood pressure 182 mm[Hg] Dr. Jennifer Gordon MD Work Phone: [facility] [place] 07-17-2025 21:00-0400 Inhaled oxygen flow rate 4 L/min Dr. Jennifer Gordon MD Work Phone: [facility] [place] 07-17-2025 19:06-0400 Body height 165.[address] Jennifer Gordon MD Work Phone: [facility] [place] 07-17-2025 19:06-0400 Body mass index (BMI) [Ratio] 37.3 kg/m2 Dr. Jennifer Gordon MD Work Phone: [facility] [place] 07-17-2025 19:06-0400 Body weight 101.[address] Jennifer Gordon MD Work Phone: [facility] [place] 06-26-2025 14:03-0400 Body height 165.[address] Jennifer Gordon MD Work Phone: [facility] [place] 06-26-2025 14:03-0400 Body mass index (BMI) [Ratio] 35.9 kg/m2 Dr. Jennifer Gordon MD Work Phone: [facility] [place] 06-26-2025 14:03-0400 Body temperature 98 [degF] Dr. Jennifer Gordon MD Work Phone: [facility] [place] 06-26-2025 14:03-0400 Body weight 97.[address] Jennifer Gordon MD Work Phone: [facility] [place] 06-26-2025 14:03-0400 Diastolic blood pressure 68 mm[Hg] Dr. Jennifer Gordon MD Work Phone: [facility] [place] 06-26-2025 14:03-0400 Heart rate 103 /min Dr. Jennifer Gordon MD Work Phone: [facility] [place] 06-26-2025 14:03-0400 Respiratory rate 18 /min Dr. Jennifer Gordon MD Work Phone: [facility] [place] 06-26-2025 14:03-0400 SaO2% (BldA) [Mass fraction] 97 % Dr. Jennifer Gordon MD Work Phone: [facility] [place] 06-26-2025 14:03-0400 Systolic blood pressure 142 mm[Hg] Dr. Jennifer Gordon MD Work Phone: [facility] [place] 06-17-2025 08:29-0400 Body height 165.[address] Jennifer Gordon MD Work Phone: [facility] [place] 06-17-2025 08:29-0400 Body mass index (BMI) [Ratio] 36.6 kg/m2 Dr. Jennifer Gordon MD Work Phone: [facility] [place] 06-17-2025 08:29-0400 Body temperature 97.1 [degF] Dr. Jennifer Gordon MD Work Phone: [facility] [place] 06-17-2025 08:29-0400 Body weight 99.[address] Jennifer Gordon MD Work Phone: [facility] [place] 06-17-2025 08:29-0400 Diastolic blood pressure 65 mm[Hg] Dr. Jennifer Gordon MD Work Phone: [facility] [place] 06-17-2025 08:29-0400 Heart rate 75 /min Dr. Jennifer Gordon MD Work Phone: [facility] [place] 06-17-2025 08:29-0400 Inhaled oxygen flow rate 4 L/min Dr. Jennifer Gordon MD Work Phone: [facility] [place] 06-17-2025 08:29-0400 Respiratory rate 18 /min Dr. Jennifer Gordon MD Work Phone: [facility] [place] 06-17-2025 08:29-0400 SaO2% (BldA) [Mass fraction] 97 % Dr. Jennifer Gordon MD Work Phone: [facility] [place] 06-17-2025 08:29-0400 Systolic blood pressure 136 mm[Hg] Dr. Jennifer Gordon MD Work Phone: [facility] [place] 04-30-2025 10:06-0400 Body height 165.1 cm Cb Boudreaux MD Work Phone: [facility] 04-30-2025 10:06-0400 Body mass index (BMI) [Ratio] 36.11 kg/m2 Cb Boudreaux MD Work Phone: [facility] 04-30-2025 10:06-0400 Body weight 98.43 kg Cb Boudreaux MD Work Phone: [facility] 04-30-2025 10:06-0400 Diastolic blood pressure 93 mm[Hg] Cb Boudreaux MD Work Phone: [facility] 04-30-2025 10:06-0400 Heart rate 64 /min Cb Boudreaux MD Work Phone: [facility] 04-30-2025 10:06-0400 SaO2% (BldA) [Mass fraction] 94 % Cb Boudreaux MD Work Phone: [facility] Comment on above: 2 LPM 04-30-2025 10:06-0400 Systolic blood pressure 145 mm[Hg] Cb Boudreaux MD Work Phone: [facility] 2025 13:25-0400 Body height 165.[address] Jennifer Gordon MD Work Phone: [facility] [place] 2025 13:25-0400 Body mass index (BMI) [Ratio] 35.6 kg/m2 Dr. Jennifer Gordon MD Work Phone: [facility] [place] 2025 13:25-0400 Body temperature 98.6 [degF] Dr. Jennifer Gordon MD Work Phone: [facility] [place] 2025 13:25-0400 Body weight 97.[address] Jennifer Gordon MD Work Phone: [facility] [place] 2025 13:25-0400 Diastolic blood pressure 84 mm[Hg] Dr. Jennifer Gordon MD Work Phone: [facility] [place] 2025 13:25-0400 Heart rate 71 /min Dr. Jennifer Gordon MD Work Phone: [facility] [place] 2025 13:25-0400 Inhaled oxygen flow rate 4 L/min Dr. Jennifer Gordon MD Work Phone: [facility] [place] 2025 13:25-0400 Respiratory rate 20 /min Dr. Jennifer Gordon MD Work Phone: [facility] [place] 2025 13:25-0400 SaO2% (BldA) [Mass fraction] 99 % Dr. Jennifer Gordon MD Work Phone: [facility] [place] 2025 13:25-0400 Systolic blood pressure 160 mm[Hg] Dr. Jennifer Gordon MD Work Phone: [facility] [place] 04-04-2025 14:41-0400 Heart rate 97 /min Dr. Jennifer Gordon MD Work Phone: [facility] [place] 04-04-2025 14:41-0400 Inhaled oxygen flow rate 4 L/min Dr. Jennifer Gordon MD Work Phone: [facility] [place] 04-04-2025 14:41-0400 SaO2% (BldA) [Mass fraction] 96 % Dr. Jennifer Gordon MD Work Phone: [facility] [place] 04-04-2025 08:16-0400 Body mass index (BMI) [Ratio] 34.9 kg/m2 Dr. Jennifer Gordon MD Work Phone: [facility] [place] 04-04-2025 08:16-0400 Body temperature 97.4 [degF] Dr. Jennifer Gordon MD Work Phone: [facility] [place] 04-04-2025 08:16-0400 Body weight 95.[address] Jennifer Gordon MD Work Phone: [facility] [place] 04-04-2025 08:16-0400 Diastolic blood pressure 82 mm[Hg] Dr. Jennifer Gordon MD Work Phone: [facility] [place] 04-04-2025 08:16-0400 Heart rate 68 /min Dr. Jennifer Gordon MD Work Phone: [facility] [place] 04-04-2025 08:16-0400 Inhaled oxygen flow rate 4 L/min Dr. Jennifer Gordon MD Work Phone: [facility] [place] 04-04-2025 08:16-0400 Respiratory rate 20 /min Dr. Jennifer Gordon MD Work Phone: [facility] [place] 04-04-2025 08:16-0400 SaO2% (BldA) [Mass fraction] 99 % Dr. Jennifer Gordon MD Work Phone: [facility] [place] 04-04-2025 08:16-0400 Systolic blood pressure 165 mm[Hg] Dr. Jennifer Gordon MD Work Phone: [facility] [place] 03-27-2025 11:34-0400 Body height 165.[address] Jennifer Gordon MD Work Phone: [facility] [place] 03-27-2025 11:34-0400 Body mass index (BMI) [Ratio] 36.1 kg/m2 Dr. Jennifer Gordon MD Work Phone: [facility] [place] 03-27-2025 11:34-0400 Body temperature 98.2 [degF] Dr. Jennifer Gordon MD Work Phone: [facility] [place] 03-27-2025 11:34-0400 Body weight 98.[address] Jennifer Gordon MD Work Phone: [facility] [place] 03-27-2025 11:34-0400 Diastolic blood pressure 79 mm[Hg] Dr. Jennifer Gordon MD Work Phone: [facility] [place] 03-27-2025 11:34-0400 Heart rate 96 /min Dr. Jennifer Gordon MD Work Phone: [facility] [place] 03-27-2025 11:34-0400 Inhaled oxygen flow rate 4 L/min Dr. Jennifer Gordon MD Work Phone: [facility] [place] 03-27-2025 11:34-0400 Respiratory rate 17 /min Dr. Jennifer Gordon MD Work Phone: [facility] [place] 03-27-2025 11:34-0400 SaO2% (BldA) [Mass fraction] 95 % Dr. Jennifer Gordon MD Work Phone: [facility] [place] 03-27-2025 11:34-0400 Systolic blood pressure 169 mm[Hg] Dr. Jennifer Gordon MD Work Phone: [facility] [place] 02-18-2025 11:31-0400 Body temperature 98.1 [degF] Jossie Alcazar MD Work Phone: [facility] 02-18-2025 11:31-0400 Diastolic blood pressure 73 mm[Hg] Jossie Alcazar MD Work Phone: [facility] 02-18-2025 11:31-0400 Heart rate 61 /min Jossie Alcazar MD Work Phone: [facility] 02-18-2025 11:31-0400 Respiratory rate 18 /min Jossie Alcazar MD Work Phone: [facility] 02-18-2025 11:31-0400 SaO2% (BldA) [Mass fraction] 97 % Jossie Alcazar MD Work Phone: [facility] 02-18-2025 11:31-0400 Systolic blood pressure 138 mm[Hg] Jossie Alcazar MD Work Phone: [facility] 02-13-2025 15:45-0400 Body height 165.1 cm Jossie Alcazar MD Work Phone: [facility] 02-13-2025 15:45-0400 Body mass index (BMI) [Ratio] 35.94 kg/m2 Jossie Alcazar MD Work Phone: [facility] 02-13-2025 15:45-0400 Body weight 97.98 kg Jossie Alcazar MD Work Phone: [facility] 01-06-2025 10:18-0500 Body height 165.[address] Jennifer Gordon MD Work Phone: [facility] [place] 01-06-2025 10:18-0500 Body mass index (BMI) [Ratio] 37.5 kg/m2 Dr. Jennifer Gordon MD Work Phone: [facility] [place] 01-06-2025 10:18-0500 Body weight 102.[address] Jennifer Gordon MD Work Phone: [facility] [place] 01-01-2025 16:41-0500 Body temperature 98 [degF] Dr. Jennifer Gordon MD Work Phone: [facility] [place] 01-01-2025 16:41-0500 Diastolic blood pressure 79 mm[Hg] Dr. Jennifer Gordon MD Work Phone: [facility] [place] 01-01-2025 16:41-0500 Heart rate 85 /min Dr. Jennifer Gordon MD Work Phone: [facility] [place] 01-01-2025 16:41-0500 Respiratory rate 19 /min Dr. Jennifer Gordon MD Work Phone: [facility] [place] 01-01-2025 16:41-0500 SaO2% (BldA) [Mass fraction] 94 % Dr. Jennifer Gordon MD Work Phone: [facility] [place] 01-01-2025 16:41-0500 Systolic blood pressure 128 mm[Hg] Dr. Jennifer Gordon MD Work Phone: [facility] [place] 01-01-2025 15:33-0500 Body mass index (BMI) [Ratio] 36.6 kg/m2 Dr. Jennifer Gordon MD Work Phone: [facility] [place] 01-01-2025 15:33-0500 Body weight 99.[address] Jennifer Gordon MD Work Phone: [facility] [place] 12-26-2024 11:24-0500 Body mass index (BMI) [Ratio] 38.1 kg/m2 Dr. Jennifer Gordon MD Work Phone: [facility] [place] 12-26-2024 11:24-0500 Body temperature 98.2 [degF] Dr. Jennifer Gordon MD Work Phone: [facility] [place] 12-26-2024 11:24-0500 Body weight 103.[address] Jennifer Gordon MD Work Phone: [facility] [place] 12-26-2024 11:24-0500 Diastolic blood pressure 84 mm[Hg] Dr. Jennifer Gordon MD Work Phone: [facility] [place] 12-26-2024 11:24-0500 Heart rate 82 /min Dr. Jennifer Gordon MD Work Phone: [facility] [place] 12-26-2024 11:24-0500 Inhaled oxygen flow rate 4 L/min Dr. Jennifer Gordon MD Work Phone: [facility] [place] 12-26-2024 11:24-0500 Respiratory rate 17 /min Dr. Jennifer Gordon MD Work Phone: [facility] [place] 12-26-2024 11:24-0500 SaO2% (BldA) [Mass fraction] 95 % Dr. Jennifer Gordon MD Work Phone: [facility] [place] 12-26-2024 11:24-0500 Systolic blood pressure 158 mm[Hg] Dr. Jennifer Gordon MD Work Phone: [facility] [place] 10-16-2024 13:23-0500 Body mass index (BMI) [Ratio] 38.2 kg/m2 Dr. Jennifer Gordon MD Work Phone: [facility] [place] 10-16-2024 13:23-0500 Body temperature 97.1 [degF] Dr. Jennifer Gordon MD Work Phone: [facility] [place] 10-16-2024 13:23-0500 Body weight 104.[address] Jennifer Gordon MD Work Phone: [facility] [place] 10-16-2024 13:23-0500 Diastolic blood pressure 78 mm[Hg] Dr. Jennifer Gordon MD Work Phone: [facility] [place] 10-16-2024 13:23-0500 Heart rate 64 /min Dr. Jennifer Gordon MD Work Phone: [facility] [place] 10-16-2024 13:23-0500 Inhaled oxygen flow rate 4 L/min Dr. Jennifer Gordon MD Work Phone: [facility] [place] 10-16-2024 13:23-0500 Respiratory rate 20 /min Dr. Jennifer Gordon MD Work Phone: [facility] [place] 10-16-2024 13:23-0500 SaO2% (BldA) [Mass fraction] 99 % Dr. Jennifer Gordon MD Work Phone: [facility] [place] 10-16-2024 13:23-0500 Systolic blood pressure 122 mm[Hg] Dr. Jennifer Gordon MD Work Phone: [facility] [place] 09-25-2024 08:12-0500 Body temperature 98.2 [degF] Jossie Alcazar MD Work Phone: [facility] 09-25-2024 08:12-0500 Diastolic blood pressure 80 mm[Hg] Jossie Alcazar MD Work Phone: [facility] 09-25-2024 08:12-0500 Heart rate 74 /min Jossie Alcazar MD Work Phone: [facility] 09-25-2024 08:12-0500 Respiratory rate 17 /min Jossie Alcazar MD Work Phone: [facility] 09-25-2024 08:12-0500 SaO2% (BldA) [Mass fraction] 96 % Jossie Alcazar MD Work Phone: [facility] 09-25-2024 08:12-0500 Systolic blood pressure 142 mm[Hg] Jossie Alcazar MD Work Phone: [facility] 09-25-2024 06:31-0500 Body mass index (BMI) [Ratio] 37.79 kg/m2 Jossie Alcazar MD Work Phone: [facility] 09-25-2024 06:31-0500 Body weight 103 kg Jossie Alcazar MD Work Phone: [facility] 09-21-2024 23:21-0500 Body height 165.1 cm Jossie Alcazar MD Work Phone: [facility] 09-18-2024 13:00-0500 Body height 165.1 cm Cb Boudreaux MD Work Phone: [facility] 09-18-2024 13:00-0500 Body mass index (BMI) [Ratio] 39.44 kg/m2 Cb Boudreaux MD Work Phone: [facility] 09-18-2024 13:00-0500 Body weight 107.5 kg Cb Boudreaux MD Work Phone: [facility] 09-18-2024 13:00-0500 Diastolic blood pressure 80 mm[Hg] Cb Boudreaux MD Work Phone: [facility] 09-18-2024 13:00-0500 Heart rate 70 /min Cb Boudreaux MD Work Phone: [facility] 09-18-2024 13:00-0500 SaO2% (BldA) [Mass fraction] 98 % Cb Boudreaux MD Work Phone: [facility] Comment on above: 4 LPM 09-18-2024 13:00-0500 Systolic blood pressure 135 mm[Hg] Cb Boudreaux MD Work Phone: [facility] 09-03-2024 16:01-0400 Diastolic blood pressure 78 mm[Hg] Ramírez Cunningham MD Work Phone: [facility] 09-03-2024 16:01-0400 Heart rate 84 /min Ramírez Cunningham MD Work Phone: [facility] 09-03-2024 16:01-0400 SaO2% (BldA) [Mass fraction] 95 % Ramírez Cunningham MD Work Phone: [facility] 09-03-2024 16:01-0400 Systolic blood pressure 145 mm[Hg] Ramírez Cunningham MD Work Phone: [facility] 09-03-2024 11:16-0400 Body temperature 97.81 [degF] Ramírez Cunningham MD Work Phone: [facility] 09-03-2024 11:00-0400 Respiratory rate 16 /min Ramírez Cunningham MD Work Phone: [facility] 09-02-2024 18:27-0400 Body height 165.1 cm Ramírez Cunningham MD Work Phone: [facility] 09-02-2024 18:27-0400 Body mass index (BMI) [Ratio] 39.44 kg/m2 Ramírez Cunningham MD Work Phone: [facility] 09-02-2024 18:27-0400 Body weight 107.5 kg Ramírez Cunningham MD Work Phone: [facility] 09-02-2024 14:44-0400 SaO2% (BldA) [Mass fraction] 97.3 % Ramírez Cunningham MD Work Phone: [facility] 02-29-2024 14:06-0400 Body height 165.[address] Jennifer Gordon Work Phone: [facility] [place] 02-29-2024 14:06-0400 Body mass index (BMI) [Ratio] 41.4 kg/m2 Dr. Jennifer Gordon Work Phone: [facility] [place] 02-29-2024 14:06-0400 Body temperature 97.7 [degF] Dr. Jennifer Gordon Work Phone: [facility] [place] 02-29-2024 14:06-0400 Body weight [address] Jennifer Gordon Work Phone: [facility] [place] 02-29-2024 14:06-0400 Diastolic blood pressure 78 mm[Hg] Dr. Jennifer Gordon Work Phone: [facility] [place] 02-29-2024 14:06-0400 Heart rate 102 /min Dr. Jennifer Gordon Work Phone: [facility] [place] 02-29-2024 14:06-0400 Respiratory rate 20 /min Dr. Jennifer Gordon Work Phone: [facility] [place] 02-29-2024 14:06-0400 SaO2% (BldA) [Mass fraction] 96 % Dr. Jennifer Gordon Work Phone: [facility] [place] 02-29-2024 14:06-0400 Systolic blood pressure 128 mm[Hg] Dr. Jennifer Gordon Work Phone: [facility] [place] 01-15-2024 07:18-0400 Body mass index (BMI) [Ratio] 40.7 kg/m2 Dr. Jennifer Gordon Work Phone: [facility] [place] 01-15-2024 07:18-0400 Body temperature 96.9 [degF] Dr. Jennifer Gordon Work Phone: [facility] [place] 01-15-2024 07:18-0400 Body weight 111.[address] Jennifer Gordon Work Phone: [facility] [place] 01-15-2024 07:18-0400 Diastolic blood pressure 80 mm[Hg] Dr. Jennifer Gordon Work Phone: [facility] [place] 01-15-2024 07:18-0400 Heart rate 84 /min Dr. Jennifer Gordon Work Phone: [facility] [place] 01-15-2024 07:18-0400 Inhaled oxygen flow rate 4 L/min Dr. Jennifer Gordon Work Phone: [facility] [place] 01-15-2024 07:18-0400 Respiratory rate 20 /min Dr. Jennifer Gordon Work Phone: [facility] [place] 01-15-2024 07:18-0400 SaO2% (BldA) [Mass fraction] 97 % Dr. Jennifer Gordon Work Phone: [facility] [place] 01-15-2024 07:18-0400 Systolic blood pressure 141 mm[Hg] Dr. Jennifer Gordon Work Phone: [facility] [place] 12-11-2023 09:23-0500 Body mass index (BMI) [Ratio] 42.5 kg/m2 Dr. Jennifer Gordon Work Phone: [facility] [place] 12-11-2023 09:23-0500 Body temperature 98 [degF] Dr. Jennifer Gordon Work Phone: [facility] [place] 12-11-2023 09:23-0500 Body weight [address] Jennifer Gordon Work Phone: [facility] [place] 12-11-2023 09:23-0500 Diastolic blood pressure 66 mm[Hg] Dr. Jennifer Gordon Work Phone: [facility] [place] 12-11-2023 09:23-0500 Heart rate 75 /min Dr. Jennifer Gordon Work Phone: [facility] [place] 12-11-2023 09:23-0500 Respiratory rate 18 /min Dr. Jennifer Gordon Work Phone: [facility] [place] 12-11-2023 09:23-0500 SaO2% (BldA) [Mass fraction] 93 % Dr. Jennifer Gordon Work Phone: [facility] [place] 12-11-2023 09:23-0500 Systolic blood pressure 103 mm[Hg] Dr. Jennifer Gordon Work Phone: [facility] [place] 12-11-2023 09:21-0500 Body height 165.[address] Jennifer Gordon Work Phone: [facility] [place] 12-11-2023 07:33-0500 Body mass index (BMI) [Ratio] 42.4 kg/m2 Dr. Jennifer Gordon Work Phone: [facility] [place] 12-11-2023 07:33-0500 Body temperature 98.1 [degF] Dr. Jennifer Gordon Work Phone: [facility] [place] 12-11-2023 07:33-0500 Body weight 115.[address] Jennifer Gordon Work Phone: [facility] [place] 12-11-2023 07:33-0500 Diastolic blood pressure 82 mm[Hg] Dr. Jennifer Gordon Work Phone: [facility] [place] 12-11-2023 07:33-0500 Heart rate 75 /min Dr. Jennifer Gordon Work Phone: [facility] [place] 12-11-2023 07:33-0500 Inhaled oxygen flow rate 4 L/min Dr. Jennifer Gordon Work Phone: [facility] [place] 12-11-2023 07:33-0500 Respiratory rate 18 /min Dr. Jennifer Gordon Work Phone: [facility] [place] 12-11-2023 07:33-0500 SaO2% (BldA) [Mass fraction] 95 % Dr. Jennifer Gordon Work Phone: [facility] [place] 12-11-2023 07:33-0500 Systolic blood pressure 128 mm[Hg] Dr. Jennifer Gordon Work Phone: [facility] [place] 11-28-2023 14:55-0500 Body height 165.[address] Jennifer Gordon Work Phone: [facility] [place] 11-28-2023 14:55-0500 Body mass index (BMI) [Ratio] 40.2 kg/m2 Dr. Jennifer Gordon Work Phone: [facility] [place] 11-28-2023 14:55-0500 Body temperature 98 [degF] Dr. Jennifer Gordon Work Phone: [facility] [place] 11-28-2023 14:55-0500 Body weight 109.[address] Jennifer Gordon Work Phone: [facility] [place] 11-28-2023 14:55-0500 Diastolic blood pressure 66 mm[Hg] Dr. Jennifer Gordon Work Phone: [facility] [place] 11-28-2023 14:55-0500 Heart rate 96 /min Dr. Jennifer Gordon Work Phone: [facility] [place] 11-28-2023 14:55-0500 Respiratory rate 17 /min Dr. Jennifer Gordon Work Phone: [facility] [place] 11-28-2023 14:55-0500 SaO2% (BldA) [Mass fraction] 93 % Dr. Jennifer Gordon Work Phone: [facility] [place] 11-28-2023 14:55-0500 Systolic blood pressure 110 mm[Hg] Dr. Jennifer Gordon Work Phone: [facility] [place] 10-17-2023 13:57-0500 Body mass index (BMI) [Ratio] 39.6 kg/m2 Dr. Jennifer Gordon Work Phone: [facility] [place] 10-17-2023 13:57-0500 Body weight 107.[address] Jennifer oGrdon Work Phone: [facility] [place] 10-17-2023 13:57-0500 Diastolic blood pressure 81 mm[Hg] Dr. Jennifer Gordon Work Phone: [facility] [place] 10-17-2023 13:57-0500 Heart rate 74 /min Dr. Jennifer Gordon Work Phone: [facility] [place] 10-17-2023 13:57-0500 Respiratory rate 18 /min Dr. Jennifer Gordon Work Phone: [facility] [place] 10-17-2023 13:57-0500 Systolic blood pressure 122 mm[Hg] Dr. Jennifer Gordon Work Phone: [facility] [place] 06-05-2023 10:16-0400 Body height 165.[address] Rusty Dozier Work Phone: [facility] [place] 06-05-2023 10:16-0400 Body mass index (BMI) [Ratio] 37.3 kg/m2 Dr. Rusty Dozier Work Phone: [facility] [place] 06-05-2023 10:16-0400 Body temperature 95 [degF] Dr. Rusty Dozier Work Phone: [facility] [place] 06-05-2023 10:16-0400 Body weight 101.[address] Rusty Dozier Work Phone: [facility] [place] 06-05-2023 10:16-0400 Diastolic blood pressure 68 mm[Hg] Dr. Rusty Dozier Work Phone: [facility] [place] 06-05-2023 10:16-0400 Heart rate 88 /min Dr. Rusty Dozier Work Phone: [facility] [place] 06-05-2023 10:16-0400 Respiratory rate 18 /min Dr. Rusty Dozier Work Phone: 1(662)779-949938 [place] [address] 06-05-2023 10:16-0400 SaO2% (BldA) [Mass fraction] 95 % Dr. Rusty Dozier Work Phone: 1(076)176-751138 [place] [address] 06-05-2023 10:16-0400 Systolic blood pressure 124 mm[Hg] Dr. Rusty Dozier Work Phone: 4(016)736-607520 [place] [address] 04-18-2023 14:37-0400 Body height 165.[address] Rusty Dozier Work Phone: 1(044)967-009020 [place] [address] 04-18-2023 14:37-0400 Body mass index (BMI) [Ratio] 35.7 kg/m2 Dr. Rusty Dozier Work Phone: 5(856)688-734720 [place] [address] 04-18-2023 14:37-0400 Body weight 97.[address] Rusty Dozier Work Phone: 4(436)208-943520 [place] [address] 04-18-2023 14:37-0400 Diastolic blood pressure 84 mm[Hg] Dr. Rusty Dozier Work Phone: 2(867)449-811020 [place] [address] 04-18-2023 14:37-0400 Heart rate 99 /min Dr. Rusty Dozier Work Phone: 9(988)470-686320 [place] [address] 04-18-2023 14:37-0400 Respiratory rate 18 /min Dr. Rusty Dozier Work Phone: 1(172)856-501720 [place] [address] 04-18-2023 14:37-0400 Systolic blood pressure 122 mm[Hg] Dr. Rusty Dozier Work Phone: 8(917)112-940720 [place] [address] 02-24-2023 09:35-0400 Body mass index (BMI) [Ratio] 35.9 kg/m2 Dr. Rusty Dozier Work Phone: 8(435)505-352620 [place] [address] 02-24-2023 09:35-0400 Body temperature 97.9 [degF] Dr. Rusty Dozier Work Phone: 8(622)919-232520 [place] [address] 02-24-2023 09:35-0400 Body weight 97.[address] Rusty Dozier Work Phone: [facility] [place] 02-24-2023 09:35-0400 Diastolic blood pressure 81 mm[Hg] Dr. Rusty Dozier Work Phone: [facility] [place] 02-24-2023 09:35-0400 Heart rate 104 /min Dr. Rusty Dozier Work Phone: [facility] [place] 02-24-2023 09:35-0400 Inhaled oxygen flow rate 4 L/min Dr. Rusty Dozier Work Phone: [facility] [place] 02-24-2023 09:35-0400 Respiratory rate 22 /min Dr. Rusty Dozier Work Phone: [facility] [place] 02-24-2023 09:35-0400 SaO2% (BldA) [Mass fraction] 97 % Dr. Rusty Dozier Work Phone: [facility] [place] 02-24-2023 09:35-0400 Systolic blood pressure 118 mm[Hg] Dr. Rsuty Dozier Work Phone: [facility] [place] 02-07-2023 14:38-0400 Body height 165.1 cm [employer]C Jonathan Hellinger GRAIN CLEANER Work Phone: [facility] [place] 02-07-2023 14:38-0400 Body mass index (BMI) [Ratio] 35.2 kg/m2 [employer] Jonathan Hellinger GRAIN CLEANER Work Phone: [facility] [place] 02-07-2023 14:38-0400 Body temperature 98.2 [degF] [employer] Jonathan Hellinger GRAIN CLEANER Work Phone: [facility] [place] 02-07-2023 14:38-0400 Body weight 95.87 kg G[employer]C Jonathan Hellinger GRAIN CLEANER Work Phone: [facility] [place] 02-07-2023 14:38-0400 Diastolic blood pressure 70 mm[Hg] [employer] Jonathan Hellinger GRAIN CLEANER Work Phone: [facility] [place] 02-07-2023 14:38-0400 Heart rate 127 /min [employer] Jonathan Hellinger GRAIN CLEANER Work Phone: [facility] [place] 02-07-2023 14:38-0400 Inhaled oxygen flow rate 4 L/min [employer] Jonathan Hellinger GRAIN CLEANER Work Phone: [facility] [place] 02-07-2023 14:38-0400 Respiratory rate 17 /min [employer] Jonathan Hellinger GRAIN CLEANER Work Phone: [facility] [place] 02-07-2023 14:38-0400 SaO2% (BldA) [Mass fraction] 95 % [employer] Jonathan Hellinger GRAIN CLEANER Work Phone: [facility] [place] 02-07-2023 14:38-0400 Systolic blood pressure 126 mm[Hg] [employer]C Jonathan Hellinger GRAIN CLEANER Work Phone: [facility] [place] 12-01-2022 11:21-0500 Diastolic blood pressure 60 mm[Hg] [employer]C Jonathan Hellinger GRAIN CLEANER Work Phone: [facility] [place] 12-01-2022 11:21-0500 Heart rate 82 /min [employer] Jonathan Hellinger GRAIN CLEANER Work Phone: [facility] [place] 12-01-2022 11:21-0500 Systolic blood pressure 108 mm[Hg] G[employer]C Jonathan Hellinger GRAIN CLEANER Work Phone: [facility] [place] 12-01-2022 08:06-0500 Body height 165.1 cm GRA[employer]ER-C Jnoathan Hellinger GRAIN CLEANER Work Phone: [facility] [place] 12-01-2022 08:06-0500 Body mass index (BMI) [Ratio] 34.9 kg/m2 [employer] Jonathan Hellinger GRAIN CLEANER Work Phone: [facility] [place] 12-01-2022 08:06-0500 Body temperature 97.2 [degF] G[employer]C Jonathan Hellinger GRAIN CLEANER Work Phone: [facility] [place] 12-01-2022 08:06-0500 Body weight 95.25 kg GRA[employer]ER-C Jonathan Rutherford GRAIN CLEANER Work Phone: [facility] [place] 12-01-2022 08:06-0500 Inhaled oxygen flow rate 4 L/min [employer] Jonathan Gallegoer GRAIN CLEANER Work Phone: [facility] [place] 12-01-2022 08:06-0500 Respiratory rate 16 /min [employer]C Jonathan Gallegoer GRAIN CLEANER Work Phone: [facility] [place] 12-01-2022 08:06-0500 SaO2% (BldA) [Mass fraction] 99 % [employer]C Jonathan Rutherford GRAIN CLEANER Work Phone: [facility] [place] 10-06-2022 15:00-0500 Body height 165.[address] Rusty Dozier Work Phone: [facility] [place] Work Phone: 10-06-2022 15:00-0500 Body mass index (BMI) [Ratio] 36.8 kg/m2 Dr. Rusty Dozier Work Phone: [facility] [place] 10-06-2022 15:00-0500 Body temperature 97.8 [degF] Dr. Rusty Dozier Work Phone: [facility] [place] 10-06-2022 15:00-0500 Body weight 100.[address] Rusty Dozier Work Phone: [facility] [place] 10-06-2022 15:00-0500 Diastolic blood pressure 68 mm[Hg] Dr. Rusty Dozier Work Phone: [facility] [place] 10-06-2022 15:00-0500 Heart rate 51 /min Dr. Rusty Dozier Work Phone: [facility] [place] 10-06-2022 15:00-0500 Respiratory rate 16 /min Dr. Rusty Dozier Work Phone: [facility] [place] 10-06-2022 15:00-0500 SaO2% (BldA) [Mass fraction] 96 % Dr. Rusty Dozier Work Phone: [facility] [place] 10-06-2022 15:00-0500 Systolic blood pressure 138 mm[Hg] Dr. Rusty Dozier Work Phone: [facility] [place] 07-19-2022 14:30-0400 Body height 162.6 cm Debra Snow SOLDERER Work Phone: [facility] 07-19-2022 14:30-0400 Body mass index (BMI) [Ratio] 39.31 kg/m2 Debra Snow SOLDERER Work Phone: [facility] 07-19-2022 14:30-0400 Body weight 103.87 kg Debra Snow SOLDERER Work Phone: [facility] 07-19-2022 14:30-0400 Diastolic blood pressure 44 mm[Hg] Debra Snow SOLDERER Work Phone: [facility] 07-19-2022 14:30-0400 Heart rate 88 /min Debra Snow SOLDERER Work Phone: [facility] 07-19-2022 14:30-0400 SaO2% (BldA) [Mass fraction] 96 % Debra Snow SOLDERER Work Phone: [facility] Comment on above: [facility] 07-19-2022 14:30-0400 Systolic blood pressure 142 mm[Hg] Debra Snow SOLDERER Work Phone: [facility] 07-08-2022 11:26-0400 Body height 162.6 cm Estrada Garcia MD Work Phone: [facility] 07-08-2022 11:26-0400 Body mass index (BMI) [Ratio] 39.07 kg/m2 Estrada Garcia MD Work Phone: [facility] 07-08-2022 11:26-0400 Body temperature 98.91 [degF] Estrada Garcia MD Work Phone: [facility] 07-08-2022 11:26-0400 Body weight 103.24 kg Estrada Garcia MD Work Phone: [facility] 07-08-2022 11:26-0400 Diastolic blood pressure 81 mm[Hg] Estrada Garcia MD Work Phone: [facility] 07-08-2022 11:26-0400 Heart rate 73 /min Estrada Garcia MD Work Phone: [facility] 07-08-2022 11:26-0400 Respiratory rate 18 /min Estrada Garcia MD Work Phone: [facility] 07-08-2022 11:26-0400 SaO2% (BldA) [Mass fraction] 97 % Estrada Garcia MD Work Phone: [facility] 07-08-2022 11:26-0400 Systolic blood pressure 119 mm[Hg] Estrada Garcia MD Work Phone: [facility] 06-29-2022 08:54-0400 Respiratory rate 18 /min Jaiden Bagley MD Work Phone: [facility] 06-29-2022 07:47-0400 Body temperature 98.01 [degF] Jaiden Bagley MD Work Phone: [facility] 06-29-2022 07:47-0400 Diastolic blood pressure 95 mm[Hg] Jaiden Bagley MD Work Phone: [facility] 06-29-2022 07:47-0400 Heart rate 79 /min Jaiden Bagley MD Work Phone: [facility] 06-29-2022 07:47-0400 SaO2% (BldA) [Mass fraction] 95 % Jaiden Bagley MD Work Phone: [facility] 06-29-2022 07:47-0400 Systolic blood pressure 173 mm[Hg] Jaiden Bagley MD Work Phone: [facility] 06-21-2022 17:00-0400 Body height 162.6 cm Jaiden Bagley MD Work Phone: [facility] 06-21-2022 17:00-0400 Body mass index (BMI) [Ratio] 39.82 kg/m2 Jaiden Bagley MD Work Phone: [facility] 06-21-2022 17:00-0400 Body weight 105.23 kg Jaiden Bagley MD Work Phone: [facility] 04-04-2022 11:29-0400 Body temperature 97.9 [degF] Jada Vargas MD Work Phone: [facility] 04-04-2022 06:00-0400 Heart rate 87 /min Jada Vargas MD Work Phone: [facility] 04-04-2022 06:00-0400 Respiratory rate 19 /min Jada Vargas MD Work Phone: [facility] 04-04-2022 06:00-0400 SaO2% (BldA) [Mass fraction] 99 % Jada Vargas MD Work Phone: [facility] 04-04-2022 03:50-0400 Body mass index (BMI) [Ratio] 40.64 kg/m2 Jada Vargas MD Work Phone: [facility] 04-04-2022 03:50-0400 Body weight 107.4 kg Jada Vargas MD Work Phone: [facility] 04-03-2022 23:00-0400 Diastolic blood pressure 93 mm[Hg] Jada Vargas MD Work Phone: [facility] 04-03-2022 23:00-0400 Systolic blood pressure 186 mm[Hg] Jada Vargas MD Work Phone: [facility] 03-01-2022 09:47-0400 Body mass index (BMI) [Ratio] 43.36 kg/m2 Jada Vargas MD Work Phone: [facility] 03-01-2022 09:47-0400 Body weight 114.58 kg Jada Vargas MD Work Phone: [facility] 03-01-2022 09:47-0400 Diastolic blood pressure 74 mm[Hg] Jada Vargas MD Work Phone: [facility] 03-01-2022 09:47-0400 Heart rate 90 /min Jada Vargas MD Work Phone: [facility] 03-01-2022 09:47-0400 Systolic blood pressure 142 mm[Hg] Jada Vargas MD Work Phone: [facility] 12-30-2021 10:43-0500 SaO2% (BldA) [Mass fraction] 94 % Estrada Garcia MD Work Phone: [facility] Comment on above: on room air after rest 12-30-2021 10:35-0500 Body mass index (BMI) [Ratio] 41.76 kg/m2 Estrada Garcia MD Work Phone: [facility] 12-30-2021 10:35-0500 Body temperature 98.29 [degF] Estrada Garcia MD Work Phone: [facility] 12-30-2021 10:35-0500 Body weight 110.36 kg Estrada Garcia MD Work Phone: [facility] 12-30-2021 10:35-0500 Diastolic blood pressure 68 mm[Hg] Estrada Garcia MD Work Phone: [facility] 12-30-2021 10:35-0500 Heart rate 107 /min Estrada Garcia MD Work Phone: [facility] 12-30-2021 10:35-0500 Systolic blood pressure 109 mm[Hg] Estrada Garcia MD Work Phone: [facility] 08-04-2021 14:09-0400 Body height 162.6 cm Chepe Yin SOLDERER Work Phone: [facility] 08-04-2021 14:09-0400 Body mass index (BMI) [Ratio] 39.82 kg/m2 Chepe Yin SOLDERER Work Phone: [facility] 08-04-2021 14:09-0400 Body weight 105.23 kg Mo Christie SOLDERER Work Phone: [facility] 08-04-2021 14:09-0400 Diastolic blood pressure 82 mm[Hg] Mo Christie SOLDERER Work Phone: [facility] 08-04-2021 14:09-0400 Heart rate 110 /min Mo Farm Machine Operator SOLDERER Work Phone: [facility] 08-04-2021 14:09-0400 SaO2% (BldA) [Mass fraction] 93 % Mo Christie SOLDERER Work Phone: [facility] 08-04-2021 14:09-0400 Systolic blood pressure 138 mm[Hg] Mo Christie SOLDERER Work Phone: [facility] 04-14-2021 19:15-0400 Diastolic blood pressure 92 mm[Hg] Georgie Vázquez MD Work Phone: [facility] 04-14-2021 19:15-0400 Heart rate 78 /min Georgie Vázquez MD Work Phone: [facility] 04-14-2021 19:15-0400 Respiratory rate 16 /min Georgie Vázquez MD Work Phone: [facility] 04-14-2021 19:15-0400 SaO2% (BldA) [Mass fraction] 93 % Georgie Vázquez MD Work Phone: [facility] 04-14-2021 19:15-0400 Systolic blood pressure 160 mm[Hg] Georgie Vázquez MD Work Phone: [facility] 04-14-2021 15:19-0400 Body temperature 98.2 [degF] Georgie Vázquez MD Work Phone: [facility] 04-14-2021 15:10-0400 Body height 165.1 cm Georgie Vázquez MD Work Phone: [facility] 04-14-2021 15:10-0400 Body mass index (BMI) [Ratio] 39.94 kg/m2 Georgie Vázquez MD Work Phone: [facility] 04-14-2021 [id number] Body weight 108.86 kg Georgie Vázquez MD Work Phone: [facility] 11-02-2020 13:24-0500 BMI (Body Mass Index) 36.61 kg/m2 [facility] 11-02-2020 13:24-0500 Body Temperature 98.91 [degF] [facility] 11-02-2020 13:24-0500 Body weight 99.79 kg [facility] 11-02-2020 13:24-0500 BP Diastolic 91 mm[Hg] [facility] 11-02-2020 13:24-0500 BP Systolic 175 mm[Hg] [facility] 11-02-2020 13:24-0500 Height 165.1 cm [facility] 11-02-2020 13:24-0500 Pulse (Heart Rate) 97 /min [facility] 11-02-2020 13:24-0500 Pulse Oximetry 97 % [facility] 11-02-2020 13:24-0500 Respiratory Rate 20 /min [facility] 09-15-2020 14:27-0500 BMI (Body Mass Index) 34.28 kg/m2 [facility] 09-15-2020 14:27-0500 Body weight 93.44 kg [facility] 09-15-2020 14:27-0500 BP Diastolic 82 mm[Hg] [facility] 09-15-2020 14:27-0500 BP Systolic 147 mm[Hg] [facility] 09-15-2020 14:27-0500 Height 165.1 cm R[facility] 09-15-2020 14:27-0500 Pulse (Heart Rate) 120 /min [facility] 09-15-2020 14:27-0500 Respiratory Rate 18 /min [facility] 05-07-2019 15:42-0400 Body Temperature 98.2 [degF] [facility] 05-07-2019 15:42-0400 BP Diastolic 77 mm[Hg] Jose Long [facility] 05-07-2019 15:42-0400 BP Systolic 127 mm[Hg] Jose [facility] 05-07-2019 15:42-0400 Pulse (Heart Rate) 107 /min [facility] 05-07-2019 15:42-0400 Pulse Oximetry 96 % [facility] 05-07-2019 15:42-0400 Respiratory Rate 14 /min Jose [facility] 05-07-2019 15:15-0400 BMI (Body Mass Index) 34.28 kg/m2 [facility] 05-07-2019 15:15-0400 Body weight 93.44 kg [facility] 05-07-2019 15:15-0400 Height 165.1 cm [facility] 04-10-2019 13:11-0400 BMI (Body Mass Index) 34.28 kg/m2 [facility] 04-10-2019 13:11-0400 Height 165.1 cm [facility] 04-10-2019 13:11-0400 Weight 93.44 kg [facility] 04-05-2019 13:35-0400 BMI (Body Mass Index) 34.28 kg/m2 [facility] [place] 04-05-2019 13:35-0400 BP Diastolic 76 mm[Hg] Whitley [facility] 04-05-2019 13:35-0400 BP Systolic 145 mm[Hg] Whitley [facility] 04-05-2019 13:35-0400 Height 165.1 cm [facility] 04-05-2019 13:35-0400 Pulse (Heart Rate) 79 /min [facility] [place] 04-05-2019 13:35-0400 Pulse Oximetry 93 % [facility] [place] 04-05-2019 13:35-0400 Weight 93.44 kg [facility] [place] 09-17-2018 16:56-0500 Body temperature 37.0 C[facility] Comment on above: Performed By: #### CBCWOD, PT, PTT, DDIM R, EDCTNI, NTPROBNP, CHEM8, LIPASE, CMETADD #### Unless otherwise noted, all testing performed by [address] [place] [address] CLIA: [id number] [employer]: Maurice Coello M.D. 07-04-2017 [id number]:[id number] BMI (Body Mass Index) 33.28 kg/m2 Vaibhav Geddesmoon [facility] Work Phone: 07-04-2017 [id number] Height 165.1 cm Vaibhav Geddesmoon [facility] Work Phone: 07-04-2017 13:06040 Weight 90.72 kg Vaibhav Geddesmoon [facility] Work Phone: Encounters Encounter Date Encounter Type Care Provider Facility Start: 07-23-2025 ambulatory Doctor [facility] Start: 07-17-2025 Evaluation and manag ement of inpatient Dr. Elana Deshpande -[facility] Work Phone: Start: 07-11-2025 Patient encounter procedure GRAIN CLEANER Colette Black -Sleep Lab Work Phone: Start: 07-11-2025 ambulatory Jennifer Gordon Facility :[facility] Start: 07-09-2025 ambulatory Doctor [facility] Start: 06-26-2025 End: 06-26-[address] Jennifer Gordon MD Work Phone: -[facility] Start: 06-26-2025 End: 06-26-2025 Patient encounter procedure Mihaela Simpson NP-C -[facility] Work Phone: Start: 06-26-2025 End: 06-26-2025 Patient encounter procedure Mihaela MYERSC -[facility] Work Phone: Start: 06-26-2025 End: 06-26-[address] Jennifer Gordon MD Work Phone: -[facility] Start: 06-26-2025 End: 06-26-2025 ambulatory Jennifer Gordon Facility:[facility] Start: 06-24-2025 End: 06-24-[address] Jennifer Gordon MD Work Phone: -Pulmonary Services/Neurology Start: 06-24-2025 End: 06-24-2025 Patient encounter procedure GRAIN CLEANER Colette Black -Pulmonary Services/Neurology Work Phone: Start: 06-24-2025 End: 06-24-2025 ambulatory Jennifer Gordon [facility] Start: 06-17-2025 End: 06-17-2025 Patient encounter procedure GRAIN CLEANER Colette Black -[facility] Work Phone: Start: 06-17-2025 End: 06-17-[address] Jennifer Gordon MD Work Phone: -[facility] Start: 06-17-2025 End: 06-17-2025 Telephone encounter Nikolai [facility] Comment on above: Follow Up (Medical) Start: 06-11-2025 End: 06-11-2025 Telephone encounter Meliza Rust [facility] Start: 05-07-2025 End: 05-07-[address] Jennifer Gordon MD Work Phone: -Ultrasound [facility] Start: 05-07-2025 End: 05-07-[address] Jennifer Gordon MD -Ultrasound [facility] Work Phone: Start: 05-07-2025 End: 05-07-2025 ambulatory Jennifer Gordon Facility:[facility] Start: 05-02-2025 End: 05-02-2025 Telephone encounter Meaghan Valero [facility] Start: 04-30-2025 End: 04-30-2025 Office outpatient visit 25 minutes Cb Boudreaux MD Work Phone: [facility] Comment on above: NSVT (nonsustained v entricular tachycardia) ([facility]) Start: 04-30-2025 End: 04-30-2025 ambulatory PHYSICIAN NO [facility] Start: 04-28-2025 ambulatory JONATHAN RUTHERFORD [facility] Start: 04-17-2025 End: 04-17-[address] Jennifer Gordon MD Work Phone: [facility] Work Phone: Start: 04-17-2025 End: 04-17-2025 Patient encounter procedure Sasha Heredia GRAIN CLEANER-C -Cat Scan [facility] Work Phone: Start: 2025 End: [address] Jennifer Gordon MD -[facility] Work Phone: Start: 2025 End: 04-17-[address] Jennifer Gordon MD Work Phone: [facility] Work Phone: Start: 2025 End: 2025 ambulatory Jennifer Gordon Facility:[facility] Start: 04-07-2025 End: 04-07-2025 ambulatory [facility] Start: 04-04-2025 End: 04-04-2025 Patient encounter procedure BARBARA Black -[facility] Work Phone: Start: 04-04-2025 End: 04-04-[address] Jennifer Gordon MD Work Phone: [facility] Work Phone: Start: 04-03-2025 End: 04-03-[address] Cary Jacobsen MD -[facility] Work Phone: Start: 04-03-2025 End: 04-03-[address] Jennifre Gordon MD Work Phone: [facility] Work Phone: Start: 03-27-2025 End: 03-27-[address] Rusty Dozier MD -[facility] Work Phone: Start: 03-27-2025 End: 03-27-2025 ambulatory Jennifer Gordon [facility] Start: 03-05-2025 End: 06-15-2025 Telephone encounter Shaina Boykin MD Work Phone: [facility] Comment on above: Illness Start: 02-28-2025 ambulatory Cary Jacobsen Facility :[facility] Start: 02-27-2025 End: 02-27-[address] Melvin Oshea MD -[facility] Start: 02-27-2025 End: 02-27-2025 ambulatory Melvin Oshea Facility:[facility] Start: 02-27-2025 End: 02-27-2025 Patient encounter procedure Hui SANCHEZ -[facility] Work Phone: Start: 02-27-2025 End: 02-27-2025 ambulatory Hui Whitehead Facility:[facility] Start: 02-25-2025 End: 02-25-[address] Cary Jacobsen MD -[facility] Work Phone: Start: 02-25-2025 End: 02-25-2025 ambulatory Cary Jacobsen Facility:[facility] Start: 02-13-2025 End: 02-18-2025 Evaluation and management of inpatient Astrid Sanders DO Work Phone: [facility] Start: 02-05-2025 End: 02-05-2025 Refill Julissa Parikh MA [facility] Comment on above: Refill Request (Dolj enrique ) Start: 02-03-2025 End: 02-03-[address] Jennifer Gordon MD Work Phone: [facility] Work Phone: Start: 02-03-2025 End: 02-03-2025 Patient encounter procedure Hui SANCHEZ -[facility] Work Phone: Start: 02-03-2025 ambulatory Flavia Rl Facility:[facility] Start: 02-03-2025 End: 02-03-2025 ambulatory Hui Whitehead Facility:[facility] Start: 01-21-2025 End: 01-21-[address] Cary Jacobsen MD -[facility] Work Phone: Start: 01-21-2025 End: 01-21-2025 ambulatory Cary Jacobsen Facility:[facility] Start: 01-13-2025 End: 01-13-[address] Jennifer Gordon MD Work Phone: [facility] Work Phone: Start: 01-13-2025 End: 01-13-[address] Rusty Dozier MD -[facility] Work Phone: Start: 01-13-2025 End: 01-13-2025 ambulatory Jennifer Gordon Facility:[facility] Start: 01-06-2025 End: 01-06-2025 Patient encounter procedure Hui SANCHEZ -[facility] Work Phone: Start: 01-06-2025 End: 01-06-2025 ambulatory Hui Whitehead Facility:[facility] Start: 01-01-2025 End: 01-01-2025 Emergency department patient visit Dr. Teddy Rust MD -Emergency Department Work Phone: Start: 12-26-2024 End: 12-26-[address] Rusty Dozier MD -[facility] Work Phone: Start: 12-26-2024 End: 12-26-2024 ambulatory Rusty Dozier Facility:[facility] Start: 11-12-2024 End: 11-12-2024 Emergency department patient visit JONATAN [facility] Start: 10-25-2024 amb[facility] Start: 10-23-2024 End: 10-23-2024 Orders Only Cb Boudreaux MD Work Phone: [facility] Comment on above: Ventricular tachycar liv (HCC) (Primary Dx); Palpitations; NSVT (nonsustained ventricular tachycardia) (HCC) Start: 10-16-2024 End: 10-16-[address] Jennifer Gordon MD -[facility] Work Phone: Start: 10-16-2024 End: 10-16-2024 ambulatory Jennifer Gordon Facility:[facility] Start: 10-15-2024 End: 10-15-2024 Telephone encounter Cecille Johnson LPN [facility] Comment on above: Medication Prior Aut horization (General) (Dojolvi) Start: 09-21-2024 End: 09-25-2024 Evaluation and management of inpatient Sally Talbot MD Work Phone: [facility] Start: 09-18-2024 End: 09-18-2024 Office outpatient new 45 minutes Provider Not In System [facility] Comment on above: Ventricular tachycar liv (HCC); Palpitations; NSVT (nonsustained ventricular tachycardia) (HCC) Start: 09-18-2024 End: 09-18-2024 ambulatory PHYSICIAN NO [facility] Start: 09-16-2024 End: 09-16-2024 Orders Only Cb Boudreaux MD Work Phone: [facility] Comment on above: NSVT (nonsustained v entricular tachycardia) (HCC) (Primary Dx) Start: 09-02-2024 End: 09-03-2024 Evaluation and management of inpatient Thee Salmeron MD Work Phone: [facility] Start: 09-02-2024 End: 09-03-2024 Orders Only Rivas Jules MD Work Phone: [facility] Comment on above: Pain (Primary Dx) Start: 08-21-2024 ambulatory JONATHAN RUTHERFORD [facility] Start: 08-15-2024 End: 08-15-2024 ambulatory Jennifer Gordon Facility:[facility] Start: 08-14-2024 End: 08-14-2024 Transcribe Orders Provider Not In System [facility] Start: 07-29-2024 ambulatory Jennifer Gordon Facility :[facility] Start: 03-06-2024 Refill Raya Dutton MA Work Phone: [facility] Comment on above: Medication Refill (L evocarnitine ) Start: 02-29-2024 End: 02-29-[address] Jennifer Gordon Work Phone: [facility] Work Phone: Start: 02-29-2024 End: 02-29-[address] Jennifer Gordon Work Phone: [facility] Work Phone: Start: 02-21-2024 End: 02-21-[address] Jennifer Gordon Work Phone: [facility] Work Phone: Start: 02-21-2024 End: 02-21-[address] Jennifer Gordon Work Phone: [facility]-Pulmonary Services/Neurology Work Phone: Start: 02-07-2024 Non-patient / Non-visit Dr. Stevens Work Phone: [facility] Start: 01-29-2024 Refill Cecille Johnson LPN [facility] Comment on above: Medication Refill (D ojolvi) Start: 01-15-2024 End: 01-15-[address] Jennifer Gordon Work Phone: [facility] Work Phone: Start: 01-03-2024 End: 01-03-[address] Jennifer Gordon Work Phone: [facility] Work Phone: Start: 01-03-2024 End: 01-03-[address] Jennifer Gordon Work Phone: [facility] Work Phone: Start: 12-29-2023 End: 12-29-[address] Jennifer Gordon Work Phone: [facility] Work Phone: Start: 12-29-2023 End: 12-29-[address] Jennifer Gordon Work Phone: [facility]-Laboratory Work Phone: Start: 12-11-2023 End: 12-11-[address] Jennifer Gordon Work Phone: [facility] Work Phone: Start: 12-11-2023 End: 12-11-[address] Jennifer Gordon Work Phone: [facility] Work Phone: Start: 11-28-2023 End: 11-28-[address] Jennifer Gordon Work Phone: [facility] Work Phone: Start: 11-28-2023 End: 11-28-[address] Jennifer Gordon Work Phone: [facility] Neurology Work Phone: Start: 10-17-2023 Telephone encounter Meliza Rust [facility] Start: 10-17-2023 End: 10-17-[address] Jennifer Gordon Work Phone: [facility] Work Phone: Start: 10-16-2023 End: 10-16-2023 Office outpatient visit 15 minutes Rivas Jules MD Work Phone: [facility] Comment on above: Trigger finger of le ft thumb (Primary Dx) Start: 10-06-2023 Orders Only Tawanna Verma LPN [facility] Comment on above: Pain (Primary Dx) Start: 07-03-2023 End: 07-03-[address] Jennifer Gordon Work Phone: [facility] Work Phone: Start: 07-03-2023 End: 07-03-[address] Jennifer Gordon Work Phone: [facility] Work Phone: Start: 06-05-2023 Non-patient / Non-visit Dr. Ra ludy Dozier Work Phone: [facility] Start: 06-05-2023 End: 06-05-[address] Jennifer Gordon Work Phone: [facility] Work Phone: Start: 06-05-2023 End: 06-05-[address] Rusty Dozier [facility] Start: 06-05-2023 End: 06-05-[address] Rusty Dozier Work Phone: [facility] Work Phone: Start: 06-01-2023 End: 06-01-[address] Rusty Dozier Work Phone: [facility] Work Phone: Start: 06-01-2023 End: 06-01-[address] Rusty Dozier [facility] Work Phone: Start: 05-01-2023 Non-patient / Non-visit Dr. Ra ludy Dozier Work Phone: [facility] Start: 05-01-2023 End: 05-01-[address] Rusty Dozier Work Phone: [facility] Work Phone: Start: 05-01-2023 End: 05-01-[address] Rusty Dozier [facility] Work [facility] Start: 04-25-2023 End: 04-25-2023 Non-patient / Non-visit Dr. Rusty Dozier Work Phone: [facility] Work Phone: Start: 04-25-[address] Andrew Dozier Work Phone: [facility]-Cardiovascular Services Work Phone: Start: 04-18-2023 End: 04-18-[address] Rusty Dozier Work Phone: [facility] Work Phone: Start: 03-20-2023 Non-patient / Non-visit Dr. Ra ludy Dozier Work Phone: [facility] Work Phone: Start: 02-27-2023 Telephone encounter Jada Glez [facility] Comment on above: FOLLOW-UP Start: 02-24-2023 End: 02-24-[address] 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 Start: 02-07-2023 End: 02-07-2023 ambulatory GRAIN CLEANER-C Jonathan Rutherford GRAIN CLEANER Work Phone: [facility] Work Phone: Start: 02-07-2023 End: 02-07-2023 Patient encounter procedure GRAIN CLEANER-C Jonathan Rutherford GRAIN CLEANER Work Phone: [facility] Start: 02-07-2023 End: 02-07-2023 Patient encounter procedure GRAIN CLEANER-C Jonathan Yuenyonis GRAIN CLEANER Work Phone: [facility] Start: 12-28-2022 Non-patient / Non-visit GRAIN CLEANER-C Garrick Rutherford GRAIN CLEANER Work Phone: [facility] Start: 12-28-2022 End: 12-28-2022 ambulatory GRAIN CLEANER-C Jonathan Wilfridyonis GRAIN CLEANER Work Phone: [facility] Work Phone: Start: 12-28-2022 End: 12-28-2022 Patient encounter procedure GRAIN CLEANER-C Jonathan Wilfridyonis GRAIN CLEANER Work Phone: [facility] Start: 12-14-2022 Orders Only Suzan Gordon MD Work Phone: [facility] Start: 12-07-2022 End: 12-07-2022 Patient encounter procedure GRAIN CLEANER-C Jonathan Wilfridyonis GRAIN CLEANER [facility] Start: 12-06-2022 Telephone encounter Rocio Nickerson [facility] Comment on above: Medication Review [facility] (Dojolivi) Start: 12-05-2022 Documentation procedure Khadra Garcia [facility] Comment on above: Refill request for D OJOLVI. Start: 12-01-2022 End: 12-01-2022 ambulatory GRAIN CLEANER-C Jonathan Wilfridyonis GRAIN CLEANER Work Phone: [facility] Work Phone: Start: 12-01-2022 End: 12-01-2022 Patient encounter procedure GRAIN CLEANER-C Jonathan Helbayroner GRAIN CLEANER [facility] Start: 12-01-2022 End: 12-01-2022 Patient encounter procedure GRAIN CLEANER-C Jonathan Wilfridbayroner GRAIN CLEANER Work Phone: [facility] Internal Medicine Start: 11-23-2022 Telephone encounter Jada Glez [facility] Comment on above: Change Appointment Start: 10-06-2022 End: 10-06-[address] Rusty Dozier Work Phone: [facility] Work Phone: Start: 10-06-2022 End: 10-06-[address] Rusty Dozier Work Phone: [facility] Start: 10-06-2022 End: 10-06-[address] Rusty Dozier Work Phone: [facility] Start: 08-30-2022 Telephone encounter Shakira Cline MD Work Phone: [facility] Start: 07-19-2022 End: 07-19-2022 Office outpatient visit 15 minutes Debra Rosalva Adamson CNP Work Phone: [facility] Comment on above: Pain of upper abdome n (Primary Dx); Nausea; Diarrhea, unspecified type Start: 07-08-2022 End: 07-08-2022 Office outpatient visit 25 minutes Estrada Garcia MD Work Phone: [facility] Comment on above: COPD exacerbation (H CC) (Primary Dx); Screening for lung cancer Start: 06-21-2022 Critical care ill/in jured patient init 30-74 min Jaiden Bagley MD Work Phone: [facility] Start: 06-21-2022 End: 06-29-2022 Evaluation and management of inpatient Jaiden Bagley MD Work Phone: [facility] Start: 03-30-2022 End: 04-04-2022 Evaluation and management of inpatient JADA VARGAS [facility] Start: 03-30-2022 End: 04-04-2022 Evaluation and management of inpatient Jada Vargas MD Work Phone: [facility] Start: 03-28-2022 Documentation procedure Jyoti Thomas on [facility] Start: 03-21-2022 Documentation procedure Jyoti Thomas on [facility] Start: 03-08-2022 Orders Only Jyoti Reeves [facility] Comment on above: Rectal prolapse (Sarah aye Dx); Preoperative testing; Abdominal pain, unspecified abdominal location Start: 03-08-2022 Patient encounter status Jyoti mustafa [facility] Start: 03-07-2022 Orders Only Jyoti Reeves [facility] Comment on above: Rectal prolapse (Sarah aye Dx) Start: 03-01-2022 Admission to [facility] Jada Vargas MD Work Phone: [facility] Start: 03-01-2022 End: 03-01-2022 Office outpatient visit 10 minutes Jada Vargas MD Work Phone: [facility] Comment on above: Rectal prolapse Start: 02-17-2022 End: 02-17-2022 ambulatory JADAYAMINI VARGAS [facility] Start: 01-07-2022 Admission to [facility] Comment on above: Hx of colonic polyps (Primary Dx) Start: 01-07-2022 Documentation procedure America quiles [facility] Comment on above: Hx of colonic polyps (Primary Dx) Start: 12-30-2021 End: 12-30-2021 Office outpatient new 45 minutes Estrada Garcia MD Work Phone: [facility] Comment on above: Screening for lung c ancer (Primary Dx); Chronic obstructive pulmonary disease, unspecified COPD type (HCC) Start: 08-04-2021 End: 08-04-2021 Office outpatient new 30 minutes Chepe Yin CNP Work Phone: [facility] Comment on above: Dizzy (Primary Dx); Positional lightheadedness; Chronic rhinitis; Dysfunction of Eustachian tube, unspecified laterality Start: 07-29-2021 Transcribe Orders Lilliana dennison [facility] Comment on above: Rectal prolapse (Sarah aye Dx) Start: 07-22-2021 Transcribe Orders Alna Saba MD Work Phone: [facility] Comment on above: Dizzy (Primary Dx) Start: 04-23-2021 Patient encounter procedure Elana Westbrook PT Work Phone: [facility] Work Phone: Start: 2021 PTRECHADUL, Provider : Elana Westbrook, Status: Pen, Time: 4:00 PM February David ANTENNA SPECIALIST Work Phone: [facility] Work Phone: Start: 04-14-2021 Patient encounter procedure February David ANTENNA SPECIALIST Work Phone: [facility] Work Phone: Start: 04-14-2021 [email or web address], Provider : Anjana Hernandez, Status: Pen, Time: 4:30 PM February David ANTENNA SPECIALIST Work Phone: [facility] Work Phone: Start: 04-14-2021 End: 04-14-2021 Emergency department patient visit Georgie Vázquez MD Work Phone: [facility] Emergency Department Start: 04-12-2021 Patient encounter procedure February David ANTENNA SPECIALIST Work Phone: [facility] Work Phone: Start: 04-09-2021 Patient encounter procedure Eli Benjamin ANTENNA SPECIALIST Work Phone: [facility] Work Phone: Start: 03-31-2021 [email or web address], Provider : River Sweeney, Status: Pen, Time: 4:15 PM February David ANTENNA SPECIALIST Work Phone: [facility] Work Phone: Start: 03-29-2021 Patient encounter procedure Anjana Hernandez PTA Work Phone: [facility] Work Phone: Start: 01-06-2021 End: 01-06-2021 Orders Only Sheri Bergeron Work Phone: [facility] Start: 11-24-2020 End: 11-24-2020 Patient encounter procedure Rusty Dozier Work Phone: [facility] Comment on above: Polyneuropathy Start: 11-09-2020 End: 11-09-2020 Subsequent hospital visit by physician Flori Rodrigues Work Phone: [facility] Comment on above: Pain Start: 11-09-2020 End: 11-09-2020 Office outpatient new 30 minutes Flori Rodrigues Work Phone: [facility] Comment on above: Primary osteoarthrit is of right knee (Primary Dx) Start: 11-02-2020 End: 11-02-2020 Emergency department patient visit Mars Christiansen Work Phone: [facility] Emergency Department Comment on above: Right knee pain, uns pecified chronicity (Primary Dx) Start: 09-15-2020 End: 09-15-2020 Subsequent hospital visit by physician Rivas Jules Work Phone: [facility] Comment on above: Pain Start: 09-15-2020 End: 09-15-2020 Office outpatient new 30 minutes Jonathan Rutherford Work Phone: [facility] Comment on above: Chronic right should er pain Start: 05-15-2020 End: 05-15-2020 Subsequent hospital visit by physician Elana Pena Work Phone: [facility] Comment on above: Claudication of lowe r extremity (HCC) Start: 05-07-2019 End: 05-07-2019 Emergency department patient visit Jose Long Work Phone: [facility] Emergency Department Comment on above: Right leg pain (Prim samantha Dx); Chronic pain syndrome; Bursitis, unspecified site Start: 05-07-2019 End: 05-07-2019 Subsequent hospital visit by physician Whtiley Martinez Work Phone: [facility] Comment on above: Abnormal electrocard iogram ; Cardiomyopathy, unspecified type (HCC); Hypertension, unspecified type Start: 04-10-2019 End: 04-10-2019 Patient encounter procedure Rusty Tai Jacoby Work Phone: [facility] MRI Comment on above: Right hip pain Start: 04-05-2019 End: 04-05-2019 Office outpatient new 45 minutes Oscar Vinson Work Phone: [facility] Comment on above: Coronary artery dise ase, angina presence unspecified, unspecified vessel or lesion type, unspecified whether [place] or transplanted heart; Cardiomyopathy, unspecified type (HCC); Sleep apnea, unspecified type; Chronic obstructive pulmonary disease, unspecified COPD type (HCC); Hypertension, unspecified type; Abnormal electrocardiogram ; Chest pain, unspecified type; 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HCC) Start: 02-13-2019 Patient encounter procedure Facility:[id number] Start: 01-23-2019 Patient encounter procedure Facility:[id number] Start: 01-14-2019 Patient encounter procedure Facility:[facility] Start: 11-29-2018 End: 12-01-2018 Evaluation and management of inpatient Tom Nieves Facility:[place] Start: 10-10-2018 Patient encounter procedure Jonathan Rutherford Facility:[place] Start: 09-17-2018 Patient encounter procedure Oscar Vinson Facility:[place] Start: 07-11-2018 End: 07-11-2018 Patient encounter procedure Tyshawn Santos Facility:[place] Start: 07-02-2018 End: 07-02-2018 Patient encounter BETY HERNANDEZ [facility] Start: 07-02-2018 Patient encounter procedure Bety Hernandez Facility:[place] Start: 07-02-2018 End: 07-02-2018 Patient encounter Jono Daniel Work Phone: [facility] Start: 06-22-2018 Patient encounter procedure Kailee Louis Facility:[place] Start: 06-20-2018 End: 06-22-2018 Patient encounter procedure Tom Nieves Facility:[place] Start: 05-28-2018 Patient encounter procedure Vaibhav Naranjo Facility:[place] Start: 05-18-2018 Patient encounter procedure Vaibhav Lopez Marcella Facility:[place] Start: 02-05-2018 Patient encounter procedure Jono John Sernaada Facility:[place] Start: 02-05-2018 End: 02-05-2018 Ambulatory Jono Cali Sernaada Work Phone: [facility] Start: 01-29-2018 End: 01-30-2018 Patient encounter procedure Jossie Alcazar Facility:[place] Start: 01-12-2018 End: 01-12-2018 Patient encounter BETY HERNANDEZ [facility] Start: 01-12-2018 End: 01-12-2018 Ambulatory Bety Hernandez Work Phone: [facility] Start: 11-02-2017 End: 11-02-2017 Ambulatory ELANA PENA Facility:[facility] Start: 09-15-2017 End: 09-15-2017 Ambulatory Elana Pena Work Phone: [facility] Start: 08-16-2017 End: 08-16-2017 Ambulatory Bety Hernandez Work Phone: [facility] Start: 07-05-2017 End: 07-05-2017 Ambulatory Bety Hernandez Work Phone: [facility] Start: 07-04-2017 Patient encounter Vaibhav Naranjo Work Phone: [facility] Start: 08-30-2016 End: 08-30-2016 Ambulatory Brittany Rushing Work Phone: [facility] Start: 08-24-2016 End: 08-24-2016 Telephone encounter Brittany Rushing Work Phone: [facility] Comment on above: Results Procedures Date Procedure Procedure Detail Performing Clinician Start: 07-17-[address] Jennifer Gordon MD Work Phone: Start: 06-26-[address] [...] Work Phone: Start: 02-18-2025 Glucose measurement Gen [facility] Work Phone: Start: 02-17-2025 Glucose measurement Gen [facility] Work Phone: Start: 02-17-2025 Glucose measurement Gen jonatan [facility] Work Phone: Start: 02-17-2025 Basic metabolic pane l calcium total Olga Russell MD Work Phone: Start: 02-17-2025 Glucose measurement Gen jonatan [facility] Work Phone: Start: 02-16-2025 Glucose measurement Gen jonatan [facility] Work Phone: Start: 02-16-2025 Glucose measurement Gen jonatan [facility] Work Phone: Start: 02-16-2025 Glucose measurement Gen jonatan [facility] Work Phone: Start: 02-16-2025 Radiologic exam ches t single view Olga Russell MD Work Phone: Start: 02-16-2025 Natriuretic peptide Afia Russell MD Work Phone: Start: 02-16-2025 Ecg routine ecg w/le ast 12 lds w/i&r Astrid S Sanders DO Work Phone: Start: 02-16-2025 [facility] Work [facility]: Start: 02-16-2025 Basic metabolic pane l calcium total Olga Russell MD Work Phone: Start: 02-15-2025 Iadna-dna/rna gi pth gn multiplex probe tq 6-11 Olga Russell MD Work Phone: Start: 02-15-2025 Basic metabolic pane l calcium total Olga Russell MD Work Phone: Start: 02-15-2025 End: 02-15-2025 Glucose measurement Generic [facility] Work Phone: Start: 02-14-2025 End: 02-14-2025 Electrocardiogram Generic [facility] Work Phone: Start: 02-14-2025 Basic metabolic pane l calcium total Susan Thakur MD Work Phone: Start: 02-14-2025 Iadna s aureus methi cillin resist amp probe tq Andree Fraser RPh,PharmD Start: 02-13-2025 Assay of troponin quantitative Susan Thakur MD Work Phone: Start: 02-13-2025 Culture bacterial quanttative colony count urine Astrid Sanders DO Work Phone: Start: 02-13-2025 Ecg routine ecg w/le ast 12 lds w/i&r Astrid Husseinner DO Work Phone: Start: 02-13-2025 Assay of troponin quantitative Astrid Sanders DO Work Phone: Start: 02-13-2025 Culture bacterial bl ood aerobic w/id isolates Astrid Husseinner DO Work Phone: Start: 02-13-2025 Ct angiography chest w/contrast/noncontrast Astrid Sanders DO Work Phone: Start: 02-13-2025 OBTAIN VENOUS BLOOD GASES AND PERFORM Astrid Sanders DO Work Phone: Start: 02-13-2025 Gases blood ph direc t marivel xcpt pulse oximitry Astrid Sanders DO Work Phone: Start: 02-13-2025 Radiologic exam ches t single view Astrid Sanders DO Work Phone: Start: 02-13-2025 Influenza virus A an d B RNA and SARS-CoV-2 (COVID-19) N gene panel - Respiratory specimen by CATRINA with probe detection Astrid Sanders DO Work Phone: Start: 02-13-2025 Basic metabolic pane l calcium total Astrid Husseinner DO Work Phone: Start: 02-13-2025 GOODEN TOP Astrid S Sanders DO Work Phone: Start: 02-13-2025 LAVENDER TOP Astrid Herman Sanders DO Work Phone: Start: 02-13-2025 LIGHT BLUE TOP Astrid Herman Sanders DO Work Phone: Start: 02-13-2025 MINT GREEN TOP Astrid Herman Sanders DO Work Phone: Start: 02-13-2025 RAINBOW DRAW Astrid Herman Sanders DO Work Phone: Start: 02-13-2025 Ecg routine ecg w/le ast 12 lds w/i&r Astrid Herman Sanders DO Work Phone: Start: 02-03-2025 MRI of [...] Work Phone: Start: 09-22-2024 Electrocardiogram Gener ic [facility] Work Phone: Start: 09-22-2024 Assay of troponin quantitative Norman Mejía SOLDERER Work Phone: Start: 09-22-2024 Basic metabolic pane [...] Work Phone: Start: 09-02-2024 Electrocardiogram Gener ic [facility] Work Phone: Start: 09-02-2024 Assay of [...] direc t marivel xcpt pulse oximitry Thee Salmreon MD Work Phone: Start: 09-02-2024 Basic metabolic [...] Work Phone: Start: 07-03-2023 Screening mammography D ryanne. Jennifer Gordon Work Phone: Start: 07-03-2023 CT of [...] of cervical spine N P-C Jonathan Rutherford NP Work Phone: Start: 08-08-2022 Microalbumin [Mass/v olume] in Urine by Test strip Tawanna Verma LPN Start: 06-29-2022 Glucose measurement Gen [facility] Work Phone: Start: 06-29-2022 End: 06-29-2022 Renal function panel Sheri Hale MD Work Phone: Start: 06-28-2022 [facility] Work Phone: Start: 06-28-2022 Glucose measurement Gen [facility] Work Phone: Start: 06-28-2022 Glucose measurement Gen jonatan [facility] Work Phone: Start: 06-28-2022 Glucose measurement Gen [facility] Work Phone: Start: 06-28-2022 Comprehensive metabo lic panel Sheri Hale MD Work Phone: Start: 06-28-2022 Hepatic function panel Leodan Geronimo MD Work Phone: Start: 06-28-2022 Tissue transglutamin ase IgA measurement Nessa Jay SOLDERER Work Phone: Start: 06-27-2022 Glucose measurement Gen [facility] Work Phone: Start: 06-27-2022 Glucose measurement Gen [facility] Work Phone: Start: 06-27-2022 Glucose measurement Gen [facility] Work Phone: Start: 06-27-2022 Renal function panel John Hale MD Work Phone: Start: 06-26-2022 Glucose measurement Gen [facility] Work Phone: Start: 06-26-2022 Glucose measurement Gen [facility] Work Phone: Start: 06-26-2022 Glucose measurement Gen [facility] Work Phone: Start: 06-26-2022 Glucose measurement Gen [facility] Work Phone: Start: 06-26-2022 Renal function panel John Hale MD Work Phone: Start: 06-25-2022 Glucose measurement Gen [facility] Work Phone: Start: 06-25-2022 Glucose measurement Gen [facility] Work Phone: Start: 06-25-2022 SARS-CoV-2 (COVID-19 ) RNA [Presence] in Respiratory specimen by CATRINA with probe detection Sheri Hale MD Work Phone: Start: 06-25-2022 Radiologic exam ches t single view Sheri Hale MD Work Phone: Start: 06-25-2022 Glucose measurement Gen [facility] Work Phone: Start: 06-25-2022 Glucose measurement Gen [facility] Work Phone: Start: 06-25-2022 Renal function panel John Hale MD Work Phone: Start: 06-24-2022 Glucose measurement Gen [facility] Work Phone: Start: 06-24-2022 Glucose measurement Gen [facility] Work Phone: Start: 06-24-2022 Glucose measurement Gen [facility] Work Phone: Start: 06-24-2022 Assay of troponin quantitative Sheri Hale MD Work Phone: Start: 06-24-2022 Radiologic exam ches t single view Sheri Hale MD Work Phone: Start: 06-24-2022 Ecg routine ecg w/le ast 12 lds trcg only w/o i&r hSeri Hale MD Work Phone: Start: 06-24-2022 Renal function panel John Hale MD Work Phone: Start: 06-24-2022 Glucose measurement Gen [facility] Work Phone: Start: 06-23-2022 Glucose measurement Gen [facility] Work Phone: Start: 06-23-2022 Glucose measurement Gen [facility] Work Phone: Start: 06-23-2022 Level iv surg pathol ogy gross&microscopic exam Tyshawn Santos MD Work Phone: Start: 06-23-2022 Sigmoidoscopy Tyshawn Santos MD Work Phone: Start: 06-23-2022 End: 06-23-2022 SIGMOIDOSCOPY FLEXIBLE Tyshawn Santos MD Work Phone: Start: 06-23-2022 Glucose measurement Gen [facility] Work Phone: Start: 06-23-2022 Glucose measurement Gen [facility] Work Phone: Start: 06-23-2022 Basic metabolic pane l calcium total Kailee Louis SOLDERER Work Phone: Start: 06-22-2022 Glucose measurement Gen [facility] Work Phone: Start: 06-22-2022 Glucose measurement Gen [facility] Work Phone: Start: 06-22-2022 Glucose measurement Gen [facility] Work Phone: Start: 06-22-2022 Glucose measurement Gen [facility] Work Phone: Start: 06-21-2022 Glucose measurement Gen [facility] Work Phone: Start: 06-21-2022 Glucose measurement Gen [facility] Work Phone: Start: 06-21-2022 Assay of [...] Work Phone: Start: 04-02-2022 Glucose measurement William aVrgas MD Work Phone: Start: 04-02-2022 Glucose measurement [...] 04-01-2022 Basic metabolic pane l calcium total Tatianagermán Mckeonn Butt PA-C Work Phone: Start: 03-31-2022 Glucose [...] 03-31-2022 Basic metabolic pane l calcium total Tatianagermán Mckeonn Butt PA-C Work Phone: Start: 03-31-2022 Adult depression scr eening assessment Estrada Garcia MD Work Phone: Start: 03-30-2022 Assay of troponin quantitative Serina Meyers MD Work Phone: Start: 03-30-2022 Ecg routine ecg w/le ast 12 lds w/i&r Wiping Cloth Cutter Generic Start: 03-30-2022 Glucose measurement William Vargas MD Work Phone: Start: 03-30-2022 Glucose measurement William Vargas MD Work Phone: Start: 03-30-2022 End: 03-30-2022 ALTEMEIER PROCEDURE Jada Vargas MD Work Phone: Start: 03-30-2022 Blood typing serologic abo Tatiana Mckeongabriele SANCHEZ-John Work Phone: Start: 03-30-2022 Thromboplastin time partial plasma/whole blood Jada Vargas MD Work Phone: Start: 03-30-2022 Glucose measurement William Vargas MD Work Phone: Start: 02-17-2022 Colonoscopy Jada diggs MD Work Phone: Start: 01-24-2022 Microalbumin [Mass/v olume] in Urine by Test strip Jada Vargas MD Work Phone: Start: 12-30-2021 6-minute walk test Hayden as Maycol Garcia MD Work Phone: Start: 08-25-2021 Mammography [...] Phone: Start: 09-15-2020 Radex shoulder 1 view M errol Jules Work Phone: Start: 05-15-2020 Non-invas physiologi c std extremity art 2 level External Transcribed Start: 05-07-2019 LAVENDER TOP Jose sharma Revammy Work Phone: Start: 05-07-2019 LIGHT BLUE TOP Jose Long Work Phone: Start: 05-07-2019 MINT GREEN TOP Jose Mc Ethan Work Phone: Start: 05-07-2019 RAINBOW DRAW Jose sharma Revill Work Phone: Start: 05-07-2019 Echocardiography Whitley Martinez Work Phone: Start: 04-05-2019 12 lead ECG Whitley shay Work Phone: Start: 11-27-2018 End: 11-27-2018 Microscopic examination of blood, culture Oscar Vinson Comment on above: Performed By: #### C BCWOD, PT, PTT, DDIMR, EDCTNI, NTPROBNP, CHEM8, LIPASE, CMETADD #### Unless otherwise noted, all testing performed by [place] [id number] [place] [id number] CLIA: [id number] [employer] Builder: Maurice Coello M.D. Start: 07-02-2018 End: 07-02-2018 25 hydroxy includes fractions if performed Jononakul Leiva P Fredy Work Phone: Start: 07-02-2018 End: 07-02-2018 Albumin serum plasma/whole blood Jononakul Hoodra P Daphneada Work Phone: Start: 07-02-2018 End: 07-02-2018 Assay of phosphorus inorganic Jononakul Hoodra P Vadada Work Phone: Start: 07-02-2018 End: 07-02-2018 Calcium total Jononakul Hoodra P Fredy Work Phone: Start: 07-02-2018 End: 07-02-2018 Electrolyte panel Jononakul Hoodra P Vadada Work Phone: Start: 07-02-2018 End: 07-02-2018 Hemoglobin and Hematocrit panel - Blood Jono Cali P Vad[place] Work Phone: Start: 07-02-2018 End: 07-02-2018 [facility] - BUN AND CREATININE Jononakul Hoodra P Vadada Work Phone: Start: 07-02-2018 End: 07-02-2018 [facility] - PARATHYROID HORMONE Jononakul Hoodra P Vadada Work Phone: Start: 07-02-2018 End: 07-02-2018 Assay of thyroid stimulating hormone tsh Bety Hernandez Work Phone: Start: 07-02-2018 End: 07-02-2018 [facility] - PROTEIN PANEL, URINE Jononakul Shanks a P Fredy Work Phone: Start: 01-29-2018 Microscopic examinat ion of blood, culture Oscar Vinson Comment on above: Performed By: #### C BCWOD, PT, PTT, DDIMR, EDCTNI, NTPROBNP, CHEM8, LIPASE, CMETADD #### Unless otherwise noted, all testing performed by [place] [address] [address] [place] [address] CLIA: [id number] [employer] Builder: Maurice Coello M.D. Start: 07-05-2016 Arpit Cobb my Plan of Treatment Date Care Activity Detail Author Start: 2033 RSV Immunization (1 - 1-dose 75+ series) RSV Immunization (1 - 1-dose 75+ series) [facility] Start: 02-18-2032 Scre[facility] malignant [facility] Start: 06-23-2027 Screening for malignant neoplasm of colon Flexible sigmoidoscopy [facility] Start: 02-17-2027 Screening for malignant neoplasm of colon [facility] Start: 02-18-2026 Depression screening using PHQ-9 (Patient Health Questionnaire 9) score Depression Screening/Follow-Up (PHQ-2/9) [facility] Start: 02-18-2026 eGFR - Kidney Disease eGFR - Kidney Disease [facility] Start: 02-13-2026 Screening for malignant neoplasm of lung Low-dose CT Lung Cancer Screen [facility] Start: 09-23-2025 Urine screening for protein eGFR - Kidney Disease [facility] Start: 09-03-2025 Urine screening for protein eGFR - Kidney Disease [facility] Start: 09-02-2025 Urine screening for protein eGFR - Kidney Disease [facility] Start: 07-17-2025 Urinalysis complete panel - Urine [facility] Start: 07-17-2025 Verification routine [facility] Start: 07-17-2025 Admission procedure [facility] Start: 07-17-2025 Hospital admission, emergency, from emergency room, medical nature [facility] Start: 07-17-2025 [facility] Start: 07-07-2025 Influenza vaccination Influenza Vaccine (#1) [facility] Start: 07-04-2025 Polysomnography [facility] Start: 06-11-2025 End: 06-11-2025 Patient encounter procedure 06/11/2025 3:15 PM EDT Appointment [facility] [address] 4th [place] [address] [place] [id number] Herve Hyman MD [address] [place] [address] Discharge Disposition: Home [facility] Start: 04-30-2025 End: 04-30-2025 Patient encounter procedure 04/30/2025 10:20 AM EDT Office Visit [facility] [address] [place] [address] Cb Boudreaux MD [address] [place] [address] [facility] Start: 01-15-2025 End: 01-15-2025 Patient encounter procedure 01/15/2025 2:00 PM EDT Office Visit [facility] [address] [facility] [place] [address] Cb Boudreaux MD [address] [place] [address] [facility] Start: 01-06-2025 Patient referral [facility] Work Phone: Start: 01-01-2025 [facility] Start: 11-21-2024 End: 11-21-2024 Patient encounter procedure 11/21/2024 8:00 AM EST Appointment [facility] MRI [address] [place] [address] Cb Boudreaux MD [address] [place] [address] [facility] Start: 09-18-2024 End: 09-18-2024 Patient encounter procedure 09/18/2024 1:00 PM EST Office Visit [facility] [address] [place] [address] System, Provider Not In Cb Boudreaux MD [address] [place] [address] [facility] Start: 07-07-2024 COVID-19 Vaccine ( season) COVID-19 Vaccine () [facility] Start: 07-07-2024 COVID-19 Vaccine ( season) COVID-19 Vaccine ( season) [facility] Start: 07-07-2024 Influenza vaccination [facility] Start: 07-03-2024 Screening for malignant neoplasm of lung Low-dose CT Lung Cancer Screen [facility] Start: 06-03-2024 End: 06-03-2024 Patient encounter procedure 06/03/2024 2:00 PM EDT Appointment [facility] [address] [place] [address] [place] [address] Suazn Gordon MD [address] [place] [address] Discharge Disposition: Home [facility] Start: 02-29-2024 Hemoglobin A1c/Hemoglobin.total in Blood [facility] Start: 02-29-2024 [facility] Start: 02-12-2024 End: 02-12-2024 Patient encounter procedure [facility] Start: 02-07-2024 Patient referral [facility] Work Phone: Start: 11-28-2023 Burgess and lambda light chains [facility] Start: 11-28-2023 Serum immunofixation [facility] Start: 11-28-2023 Urine immunofixation [facility] Start: 11-07-2023 End: 11-07-2023 Patient encounter procedure 11/07/2023 2:45 PM EST Office Visit [facility] [address] [place] [address] [place] [address] Rivas Jules MD [address] [place] [address] [facility] Orthopedic [facility] Start: 10-16-2023 End: 10-16-2023 Patient encounter procedure 10/16/2023 2:00 PM EST Office Visit [facility] Orthopedic [facility] Sports Medicine [address] [place] [address] [place] [phone] Rivas Jules MD [facility] [place] [address] [facility] Start: 09-24-2023 Screening for malignant neoplasm of lung Low-dose CT Lung Cancer Screen [facility] Start: 08-14-2023 End: 08-14-2023 Patient encounter procedure 08/14/2023 Appointment Genetics Suzan Gordon MD [address] [place] [address] [facility]etics [facility] [place] Start: 08-08-2023 Urine screening for protein Urine Microalbumin [facility] Start: 07-07-2023 COVID-19 Vaccine ( season) COVID-19 Vaccine () [facility] Start: 07-07-2023 Influenza vaccination [facility] Start: 07-03-2023 Elastase, pancreatic (el-1), fecal; quantitative [facility] Start: 06-05-2023 Patient referral [facility] Work Phone: Start: 06-05-2023 Celiac disease screen [facility] Start: 2023 Fall risk assessment Falls Risk Assessment [facility] Start: 2023 Pneumococcal Vaccine: 65+ Years (1 of 1 - PCV) Pneumococcal Vaccine: 65+ Years (1 of 1 - PCV) [facility] Start: 03-31-2023 Depression screening using PHQ-9 (Patient Health Questionnaire 9) score [facility] Start: 03-24-2023 Hemoglobin A1c measurement A1C [facility] Start: 03-08-2023 Patient referral [facility] Work Phone: Start: 02-13-2023 End: 02-13-2023 Patient encounter procedure 02/13/2023 Appointment Suzan Solis MD [address] [place] [address] [facility]etics [facility] [place] Start: 01-30-2023 Pneumococcal Vaccine: Ped or At-Risk (2 of 4 - PPSV23) Pneumococcal Vaccine: Ped or At-Risk (2 of 4 - PPSV23) [facility] Start: 01-26-2023 End: 01-26-2023 Patient encounter procedure 01/26/2023 Appointment Radiology Estrada Garcia MD [address] [place] [address] [facility] Scan Start: 01-24-2023 Microalbumin measurement, urine, quantitative Urine Microalbumin [facility] Start: 01-24-2023 Screening for malignant neoplasm of lung Low-dose CT Lung Cancer Screen [facility] Start: 01-24-2023 Urine screening for protein Urine Microalbumin [facility] Start: 01-05-2023 End: 07-08-2023 Low dose computed tomography of thorax CT Lung Cancer Screening Imaging Routine Screening for lung cancer Expected: 01/05/2023, Expires: 07/08/2023 [facility] Comment on above: Expected: 01/05/2023, Expires: Start: 12-01-2022 Patient referral [facility] Work Phone: Start: 10-06-2022 Burgess and lambda light chains [facility] Work Phone: Start: 10-06-2022 Thiamine measurement [facility] Work Phone: Start: 08-31-2022 End: 08-31-2022 Patient encounter procedure 08/31/2022 Office Visit Pulmonology Estrada Garcia MD [address] [place] [address] [facility] Start: 08-25-2022 Screening for malignant neoplasm of breast Mammogram [facility] Start: 08-16-2022 Mammography MAMMOGRAM [facility] Start: 08-16-2022 Screening for malignant neoplasm of breast Mammogram [facility] Start: 08-15-2022 End: 08-15-2022 Admission to same day surgery center 08/15/2022 Surgery Tyshawn Santos MD [facility] [place] [address] ESOPHAGOGASTRODUODENOSCOPY [facility] Endoscopy Comment on above: ESOPHAGOGASTRODUODENOSCOPY Start: 08-15-2022 End: 08-15-2022 Esophagogastroduodenoscopy ESOPHAGOGASTRODUODENOSCOPY Pain of upper abdomen Nausea 08/15/2022 11:55 AM EDT [facility] Start: 08-15-2022 Subsequent hospital visit by physician 08/15/2022 Hospital Encounter Tyshawn Santos MD [address] [place] [address] [facility] Start: 08-02-2022 End: 08-02-2022 Patient encounter procedure 08/02/2022 Office Visit Cardiology Baskin, Roz Jacob MD [address] [place] [address] [facility] Start: 07-19-2022 End: 07-19-2022 Patient encounter procedure 07/19/2022 Office Visit Gastroenterology Debra Adamson, SOLDERER [address] [place] [address] [facility] Start: 07-08-2022 End: 07-08-2022 Patient encounter procedure 07/08/2022 Office Visit Pulmonology Estrada Garcia MD [address] [place] [address] Dr [address] [place] [address] [facility] Start: 07-07-2022 Influenza vaccination [facility] Start: 07-04-2022 End: 07-04-2022 Patient encounter procedure 07/04/2022 Office Visit Cardiology Day, Roz Jacob MD [address] [place] [address] [facility] Start: 03-30-2022 End: 03-30-2022 Admission to same day surgery center 03/30/2022 Surgery Jada Vargas MD [address] [address] [facility] Comment on above: ALTEMEIER PROCEDURE Start: 03-30-2022 End: 03-30-2022 ALTEMEIER PROCEDURE ALTEMEIER PROCEDURE Rectal prolapse 03/30/2022 11:15 AM EDT [facility] Start: 03-30-2022 End: 03-30-2022 Admission to same day surgery center 03/30/2022 Surgery Jada Vargas MD [address] [address] ALTEMEIER PROCEDURE [facility] Periop Comment on above: ALTEMEIER PROCEDURE Start: 03-30-2022 End: 03-30-2022 ALTEMEIER PROCEDURE ALTEMEIER PROCEDURE Rectal prolapse 03/30/2022 9:50 AM EDT [facility] Start: 03-30-2022 Subsequent hospital visit by physician 03/30/2022 Hospital Encounter Jada Vargas MD [address] [address] [facility] Periop Start: 03-29-2022 End: 03-29-2022 Patient encounter procedure 03/29/2022 Office Visit Pulmonology Estrada Garcia MD [address] [place] [address] Dr [address] [place] [address] [facility] Start: 03-28-2022 End: 03-28-2022 Patient encounter procedure 03/28/2022 Appointment Cardiology DayRoz MD [address] [facility] [place] [address] [facility] Start: 03-28-2022 End: 03-28-2022 Patient encounter procedure 03/28/2022 Appointment Cardiology DayRoz MD [address] [facility] [place] [address] [facility] Start: 03-22-2022 End: 03-22-2022 Patient encounter procedure 03/22/2022 Office Visit Pre-Admission Testing [facility] Preadmission Testing Start: 03-04-2022 End: 03-04-2022 Patient encounter procedure 03/04/2022 Appointment Cardiology Rusty Dozier MD [address] [place] [address] [facility] Start: 02-25-2022 COVID-19 Vaccine (3 - Booster for Lisa series) COVID-19 Vaccine (3 - Booster for Lisa series) [facility] Start: 02-17-2022 Subsequent hospital visit by physician 02/17/2022 Hospital Encounter Jada Vargas MD 340 [facility] [address] [place] [address] [facility] Endoscopy Start: 01-14-2022 Microalbumin measurement, urine, quantitative Urine Microalbumin [facility] Start: 01-10-2022 End: 01-10-2022 Patient encounter procedure 01/10/2022 Appointment Radiology Estrada Garcia MD [address] [facility] [address] [place] [address] [facility] CT Scan Start: 10-08-2021 End: 10-08-2021 Patient encounter procedure 10/08/2021 Office Visit Otolaryngology Farm Machine Operator, Chepe Jernigan, RUIZ [address] [place] [address] [facility] Start: 08-16-2021 End: 08-16-2021 Patient encounter procedure 08/16/2021 Appointment Radiology Jonathan Rutherford CNP [address] [place] [address] [facility] Mammography Start: 08-04-2021 End: 08-04-2021 Patient encounter procedure 08/04/2021 Office Visit Otolaryngology Farm Machine Operator, Chepe Jernigan, SOLDERER [address] [place] [address] [facility] Start: 08-03-2021 End: 08-03-2021 Patient encounter procedure 08/03/2021 Office Visit General Surgery Jada Vargas MD [address] [address] [facility] Start: 08-02-2021 End: 08-02-2021 Patient encounter procedure 08/02/2021 Appointment Radiology Jonathan Rutherford, SOLDERER [address] [place] [address] [facility] Mammography Start: 07-07-2021 Influenza vaccination Sequential Influenza Vaccine (#1) [facility] Start: 06-08-2021 End: 06-08-2021 Patient encounter procedure 06/08/2021 Appointment Radiology [facility] Mammography Start: 04-26-2021 [email or web address], Provider: River Sweeney, Status: Pen, Time: 4:15 PM PTFUADULT4, Provider: River Sweeney, Status: Pen, Time: 4:15 PM [facility]: Start: 04-23-2021 PTFUADULT4, Provider: Elana [place]brook, Status: Pen, Time: 3:45 PM PTFUADULT4, Provider: Elana [place], Status: Pen, Time: 3:45 PM [facility] Work Phone: Start: 04-21-2021 PTFUADULT4, Provider: Eli Alexander, Status: Pen, Time: 4:15 PM PTFUADULT4, Provider: Eli Alexander, Status: Pen, Time: 4:15 PM [facility] Work Phone: Start: 2021 PTRECHADUL, Provider: Elana [place], Status: Pen, Time: 4:00 PM PTRECHADWICHO, Provider: Elana [place], Status: Pen, Time: 4:00 PM [facility] Work Phone: Start: 04-15-2021 End: 04-14-2022 Basic metabolic 1998 panel - Serum or Plasma Chem 7 Lab Routine Expected: 04/15/2021, Expires: 04/14/2022 [facility] Comment on above: Expected: 04/15/2021, Expires: 2 Start: 04-15-2021 End: 04-14-2022 Creatine kinase [Enzymatic activity/volume] in Serum or Plasma CPK NO MB Lab Routine Expected: 04/15/2021, Expires: 04/14/2022 [facility] Comment on above: Expected: 04/15/2021, Expires: 2 Start: 04-14-2021 PTFUADULT4, Provider: Anjana Hernandez, Status: Denis, Time: 4:30 PM PTFUADULT4, Provider: Anjana Hernandez, Status: Pen, Time: 4:30 PM [facility] Work Phone: Start: 04-12-2021 PTFUADULT4, Provider: DavidFebruary, Status: Pen, Time: 4:30 PM PTFUADULT4, Provider: Anjana Hernandez, Status: Pen, Time: 4:30 PM [facility] Work Phone: Start: 04-09-2021 PTFUADULT4, Provider: Eli Alexander, Status: Pen, Time: 4:15 PM PTFUADULT4, Provider: Eli Alexander, Status: Pen, Time: 4:15 PM [facility] Work Phone: Start: 11-24-2020 End: 11-24-2020 Procedure visit 11/24/2020 Procedure visit Neurology Rusty Dozier MD [address] [address] [phone] Eugenia Conte MD [address] [facility] [address] [place] [address] [phone] [facility] Start: 10-12-2020 End: 10-12-2020 Procedure visit 10/12/2020 Procedure visit Neurology Eugenia Conte MD [address] [address] [phone] [facility] Start: 07-07-2020 Influenza vaccination given Sequential Influenza Vacci ne (#1) [facility] Start: 07-07-2019 Influenza vaccination INFLUENZA VACCINE (Season Ended) [facility] Start: 07-07-2019 Influenza vaccination given [facility] Start: 04-19-2019 End: 04-19-2019 Appointment 04/19/2019 Appointment Cardiology Whitley Martinze MD [address] [place] [address] [phone] [facility] Start: 04-10-2019 End: 04-10-2019 Appointment 04/10/2019 Appointment Radiology Rusty Dozier MD [address] [place] [address] [phone] [facility] MRI Start: 01-30-2019 Pneumococcal Vaccine: Age 50+ (2 of 2 - PCV) Pneumococcal Vaccine: Age 50+ (2 of 2 - PCV) [facility] Start: 01-30-2019 Pneumococcal Vaccine: Age 65+ (2 - PCV) Pneumococcal Vaccine: Age 65+ (2 - PCV) [facility] Start: 01-30-2019 Pneumococcal Vaccine: Age 65+ (2 of 2 - PCV) Pneumococcal Vaccine: Age 65+ (2 of 2 - PCV) [facility] Start: 01-30-2019 Pneumococcal Vaccine: Ped or At-Risk (2 - PCV) Pneumococcal Vaccine: Ped or At-Risk (2 - PCV) [facility] Start: 01-30-2019 Pneumococcal Vaccine: Ped or At-Risk (2 of 4 - PCV13) Pneumococcal Vaccine: Ped or At-Risk (2 of 4 - PCV13) [facility] Start: 07-07-2018 Influenza vaccination SEQUENTIAL INFLUENZA VACCINE (#1) [facility] Start: 2018 HEPATITIS B VACCINES (1 of 3 - Risk 3-dose series) HEPATITIS B VACCINES (1 of 3 - Risk 3-dose series) [facility] Start: 2018 Respiratory Syncytial Virus Immunization: Risk, 60-74 Risk, or 75+ (1 - Risk 60-74 years 1-dose series) Respiratory Syncytial Virus Immunization: Risk, 60-74 Risk, or 75+ (1 - Risk 60-74 years 1-dose series) [facility] Start: 2018 RSV Immunization (1 - Risk 60-74 years 1-dose series) RSV Immunization (1 - Risk 60-74 years 1-dose series) [facility] Start: 10-04-2017 Ambulatory 10/04/2017 Office Visit Sports Medicine Vaibhav Naranjo MD [address] [place] [address] [facility] Start: 07-07-2017 Influenza vaccination SEQUENTIAL INFLUENZA VACCINE (#1) [facility] Work Phone: Start: 07-07-2017 SEQUENTIAL INFLUENZA VACCINE (#1) SEQUENTIAL INFLUENZA VACCINE (#1) [facility] Work Phone: Start: 07-05-2017 Protein mass conc Mammogram [facility] Start: 07-05-2017 Screening for malignant neoplasm of breast Mammogram [facility] Start: 07-05-2017 Screening mammography Mammogram [facility] Start: 07-04-2017 Ambulatory [facility] Start: 2008 Administration of herpes zoster vaccine Zoster Vaccines (1 of 2) [facility] Start: 2008 Pneumococcal Vaccine: 50+ Years (1 of 1 - PCV) Pneumococcal Vaccine: 50+ Years (1 of 1 - PCV) [facility] Start: 2008 Protein mass conc COLON CANCER SCREENING DISCUSSION [facility] Start: 2008 Screening for malignant neoplasm of colon [facility] Start: 2008 Zoster vaccine hzv live for subcutaneous use ZOSTER (SHINGLES) VACCINE (1 of 2) [facility] Start: 06-11-2008 ZOSTER VACCINES (1 of 2) ZOSTER VACCINES (1 of 2) [facility] Start: 1998 Fasting lipid profile LIPID SCREENING [facility] Start: 1998 Protein mass conc MAMMOGRAM SCREENING DISCUSSION [facility] Start: 1979 Screening for malignant neoplasm of cervix PAP SMEAR DISCUSSION [facility] Start: 1977 Administration of herpes zoster vaccine Zoster Vaccines (1 of 2) [facility] Start: 1977 Shingles Vaccine (1 of 2) Shingles Vaccine (1 of 2) [facility] Start: 1977 Third diphtheria, tetanus and acellular pertussis (DTaP) vaccination TDAP (ADULT) [facility] Start: 1976 Hepatitis C antibody, confirmatory test Hepatitis C Screening [facility] Start: 1976 Hepatitis C screening Hepatitis C Screening [facility] Start: 1976 Tetanus vaccination TETANUS [facility] Start: 1974 COVID-19 Vaccine (1 of 2) COVID-19 Vaccine (1 of 2) [facility] Start: 1973 HIV screening HIV Screening [facility] Start: 1971 HIV screening HIV SCREENING DISCUSSION [facility] Start: 1971 Varicella Vaccine (1 of 2 - 13+ 2-dose series) Varicella Vaccine (1 of 2 - 13+ 2-dose series) [facility] Start: 1970 Adolescent depression screening assessment Depression Screening (PHQ9) [facility] [place] Start: 1970 COVID-19 Vaccine (1) COVID-19 Vaccine (1) [facility] Start: 1970 Depression screening using PHQ-9 (Patient Health Questionnaire 9) score [facility] Start: 1968 Diabetic foot examination [facility] Start: 1968 Glaucoma screening [facility] Start: 1968 Ophthalmic examination and evaluation Ophthalmology Exam [facility] Start: 1968 Urine screening for protein Urine (micro)albumin/creatinine ratio - Kidney Disease [facility] Start: 1968 Urine, microalbumin URINE MICROALBUMIN [facility] Start: 1965 DTaP/Tdap/Td Vaccine (1 - Tdap) DTaP/Tdap/Td Vaccine (1 - Tdap) [facility] Start: 1965 DTaP/Tdap/Td VACCINES (1 - Tdap) DTaP/Tdap/Td VACCINES (1 - Tdap) [facility] Start: 1964 Pneumococcal vaccination [facility] Start: 1964 Pneumococcal Vaccine: 65+ Years (1 - PCV) Pneumococcal Vaccine: 65+ Years (1 - PCV) [facility] Start: 1964 Pneumococcal Vaccine: 65+ Years (1 of 2 - PCV) Pneumococcal Vaccine: 65+ Years (1 of 2 - PCV) [facility] Start: 1964 Pneumococcal Vaccine: Ped or At-Risk (1 of 4 - PCV13) Pneumococcal Vaccine: Ped or At-Risk (1 of 4 - PCV13) [facility] Start: 1961 History and physical examination, annual for health maintenance Wellness Visit [facility] [place] Start: 1961 Medicare Wellness Visit Medicare Wellness Visit [facility] [place] Start: 1959 MMR Vaccine (1 of 1 - Standard series) MMR Vaccine (1 of 1 - Standard series) [facility] Start: 1959 MMR VACCINES (1 of 1 - Standard series) MMR VACCINES (1 of 1 - Standard series) [facility] Start: 1959 VARICELLA VACCINES (1 of 2 - 2-dose childhood series) VARICELLA VACCINES (1 of 2 - 2-dose childhood series) [facility] Start: 1958 COVID-19 Vaccine (#1) COVID-19 Vaccine (#1) [facility] Start: 1958 Depression screening using PHQ-9 (Patient Health Questionnaire 9) score Depression Screening (PHQ9) [facility] [place] Start: 1958 Hemoglobin A1c measurement A1C [facility] Start: 1958 Hepatitis C antibody, confirmatory test [facility] Start: 1958 Screening for malignant neoplasm of colon [facility] Start: 1958 Screening for malignant neoplasm of lung Low-dose CT Lung Cancer Screen [facility] Start: 1958 Screening for osteoporosis Dexa Scan [facility] Start: 1958 Thyrotropin Qn TSH [facility] Start: 1958 Colonoscopy COLONOSCOPY [facility] [place] Work Phone: Start: 1958 Cytopathology procedure, preparation of smear, genital source PAP SMEAR [facility] [place] Work Phone: Start: 1958 HEPATITIS C SCREENING HEPATITIS C SCREENING [facility] [place] Work Phone: Start: 1958 Screening colonoscopy COLONOSCOPY [facility] [place] Work Phone: Start: 1958 End: 1958 Screening for malignant neoplasm of cervix PAP SMEAR [facility] Start: 1958 TETANUS EVERY 10 YR TETANUS EVERY 10 YR [facility] [place] Work Phone: Start: 1958 End: 1958 Tetanus vaccination [facility] End: 03-08-2023 12 lead ECG ECG 12 Lead ECG Routine Rectal prolapse Preoperative testing 1 Occurrences starting 03/08/2022 until 03/08/2023 [facility] [place] Comment on above: 1 Occurrences starting 03/08/2022 until 03/08/2023 End: 09-16-2028 12 lead ECG ECG 12 Lead ECG Routine NSVT (nonsustained ventricular tachycardia) (HCC) 15 Occurrences starting 09/16/2024 until 09/16/2028 [facility] [place] Work Phone: Comment on above: 15 Occurrences starting 09/16/2024 until 09/16/2028 12 lead ECG ECG 12 Lead ECG Routine NSVT (nonsustained ventricular tachycardia) (HCC) 09/18/2024 1:09 PM EST [facility] 6-minute walk test 6 minute walk PFT Routine Chronic obstructive pulmonary disease, unspecified COPD type (HCC) 12/30/2021 12:00 PM EST [facility] Alanine aminotransfe rase [Enzymatic activity/volume] in Serum or Plasma [facility] Albumin [Mass/volume ] in Serum or Plasma [facility] Albumin [Moles/volum e] in Serum or Plasma [facility] Albumin/Globulin ratio [facility] Alkaline phosphatase [Enzymatic activity/volume] in Serum or Plasma [facility] ALTEMEIER PROCEDURE ALTEMEIER [place] OCEDURE Rectal prolapse [facility] Ambulatory ECG Event Monitor Amb ulatory ECG Event Monitor Cardiac Services Routine Ventricular tachycardia (HCC) Palpitations NSVT (nonsustained ventricular tachycardia) (HCC) Ordered: 09/18/2024 [facility] [place] Comment on above: Ordered: 09/18/2024 Ambulatory ECG Event Monitor Amb ulatory ECG Event Monitor Cardiac Services Routine Ventricular tachycardia (HCC) Palpitations NSVT (nonsustained ventricular tachycardia) (HCC) Ordered: 10/23/2024 [facility] [place] Work Phone: Comment on above: Ordered: 10/23/2024 Anion gap in Serum or Plasma [facility] Anion gap measurement [facility] Ankle brachial pressure index [facility] Work Phone: Ankle brachial pressure index [facility] Aspartate aminotrans ferase [Enzymatic activity/volume] in Serum or Plasma [facility] Bacteria identified in Blood by Culture Blood Culture Aerobic/Anaerobic Microbiology Routine 09/02/2024 11:39 AM EDT [facility] [place] Work Phone: Bacteria identified in Blood by Culture [facility] Work Phone: Bacteria identified in Blood by Culture Blood Culture Aerobic/Anaerobic Microbiology ABDELRAHMAN 02/13/2025 5:53 PM EDT [facility] [place] Work Phone: Bilirubin, total measurement [facility] BUN/Creatinine ratio [facility] BUN/Creatinine ratio [facility] Calcium [Mass/volume ] in Serum or Plasma [facility] Calcium [Mass/volume ] in Serum or Plasma [facility] Carbon dioxide, tota l [Moles/volume] in Central venous blood [facility] Carbon dioxide, tota l [Moles/volume] in Serum or Plasma [facility] End: 03-08-2023 CBC panel - Blood by Automated count CBC Lab Routine Rectal prolapse Preoperative testing 1 Occurrences starting 03/08/2022 until 03/08/2023 [facility] [place] Work Phone: Comment on above: 1 Occurrences starting 03/08/2022 until 03/08/2023 Chloride [Moles/volu me] in Serum or Plasma [facility] Colonoscopy COLONOSCOPY Hx o f colonic polyps [facility] End: 03-08-2023 Comprehensive metabolic 2000 panel - Serum or Plasma Comprehensive metabolic panel Lab Routine Rectal prolapse Preoperative testing 1 Occurrences starting 03/08/2022 until 03/08/2023 [facility] [place] Comment on above: 1 Occurrences starting 03/08/2022 until 03/08/2023 Creatinine [Mass/vol ume] in Serum or Plasma [facility] Creatinine [Moles/vo lume] in Serum or Plasma [facility] CT Chest [facility] CT Chest [facility] DXA Bone [Mass/Area] Bone density [facility] End: 04-05-2020 Echocardiography Echocardiogram complete Echocardiography Routine Abnormal electrocardiogram Cardiomyopathy, unspecified type (HCC) Hypertension, unspecified type 1 Occurrences starting 04/05/2019 until 04/05/2020 [facility] Comment on above: 1 Occurrences starting 04/05/2019 until 04/05/2020 Elastase, pancreatic (el-1), fecal; quantitative [facility] Electrophoresis: [id number] [facility] Electrophoresis: tanja ma globulin [facility] Exercise tolerance test [facility] Globulin measurement [facility] Glucose [Mass/volume ] in Serum or Plasma [facility] Glucose [Mass/volume ] in Serum or Plasma [facility] IgA [Mass/volume] in Serum or Plasma [facility] IgG [Mass/volume] in Serum or Plasma [facility] IgM [Mass/volume] in Serum or Plasma [facility] End: 03-08-2023 INR in Platelet poor plasma by Coagulation assay PT/INR Lab Routine Rectal prolapse Preoperative testing Abdominal pain, unspecified abdominal location 1 Occurrences starting 03/08/2022 until 03/08/2023 [facility] [place] Comment on above: 1 Occurrences starting 03/08/2022 until 03/08/2023 Burgess/lambda light c bud ratio [facility] Work Phone: Burgess/lambda light c bud ratio [facility] Lambda light chains. free [Mass/volume] in Serum or Plasma [facility] Work Phone: Lambda light chains. free [Mass/volume] in Serum or Plasma [facility] End: 12-30-2022 Low dose computed tomography of thorax CT Lung Cancer Screening Imaging Routine Screening for lung cancer Chronic obstructive pulmonary disease, unspecified COPD type (HCC) 1 Occurrences starting 12/30/2021 until 12/30/2022 [facility] [place] Work Phone: Comment on above: 1 Occurrences starting 12/30/2021 until 12/30/2022 Magnesium measurement [facility] Measurement of immun oglobulin A in serum specimen [facility] Measurement of renal function [facility] Measurement of renal function [facility] Measurement of respi ratory function [facility] MG Breast - bilatera l Screening [facility] MR Cervical spine [facility] Work Phone: MR Cervical spine [facility] MR Cervical spine [facility] End: 09-18-2025 MR Heart WO and W contrast IV MR Cardiac Morphology Wi th And Without Contrast Without velocity flow Imaging Routine Ventricular tachycardia (HCC) Palpitations NSVT (nonsustained ventricular tachycardia) (HCC) 1 Occurrences starting 09/18/2024 until 09/18/2025 [facility] Work Phone: Comment on above: 1 Occurrences starting 09/18/2024 until 09/18/2025 End: 04-10-2019 MR Hip Right Without Contrast MR Hip Right Without Contrast Imaging Routine Right hip pain Once for 1 Occurrences starting 04/10/2019 until 04/10/2019 [facility] Comment on above: Once for 1 Occurrences starting 04/10/20 19 until 04/10/2019 MR Hip Right Without Contrast MR Hip Right Without Contrast Imaging Routine Right hip pain 04/10/2019 1:54 PM EDT [facility] MR Lower Extremity [facility] MRI of cervical spine MRI SPINE CERVICAL WITHOUT CONTRAST Imaging Routine Cervical spine disease Ordered: 08/24/2016 [facility] Comment on above: Ordered: 08/24/2016 MRI of lower extremity MRI LONG BONE NEUROGRAPHY LOWER EXTREMITY LEFT Imaging Routine Myopathy Ordered: 08/24/2016 [facility] Comment on above: Ordered: 08/24/2016 MRI of lumbar spine MRI SPINE ANIL MBAR WITHOUT CONTRAST Imaging Routine Osteoarthritis of spine with radiculopathy, lumbar region Ordered: 08/24/2016 [facility] Comment on above: Ordered: 08/24/2016 Myoglobin [Presence] in Urine My emil, Urine Lab STAT 04/14/2021 4:26 PM EDT [facility] Patient Education ED Neck Pain E D Neck Spasm, No Trauma [facility] Work Phone: Patient referral [facility] Work Phone: Polysomnography [facility] Potassium [Moles/vol ume] in Serum or Plasma [facility] Potassium measurement [facility] Procedure on tissue specimen [employer] Work Phone: Comment on above: Release Upon Ordering for 1 Occurrences starting 03/30/2022, 1 completed Protein electrophore sis panel - Serum or Plasma [facility] Serum chloride measurement [facility] Sodium [Moles/volume ] in Serum or Plasma [facility] Sodium measurement [facility] End: 07-08-2023 Standard chest X-ray XR Chest AP/PA and LAT Imaging Routine COPD exacerbation (HCC) 1 Occurrences starting 07/08/2022 until 07/08/2023 [employer] Work Phone: Comment on above: 1 Occurrences starting 07/08/2022 until 07/08/2023 Thiamine measurement [facility] Work Phone: Thyroid stimulating hormone measurement [facility] Tissue transglutamin ase IgA Ab [Units/volume] in Serum [facility] Total protein measurement [facility] Ultrasound Duplex Ve nous Leg RIGHT Ultrasound Duplex Venous Leg RIGHT Vascular Ultrasound ABDELRAHMAN 11/02/2020 3:21 PM EST [facility] Urea nitrogen [Mass/ volume] in Serum or Plasma [facility] Urea nitrogen [Mass/ volume] in Serum or Plasma [facility] Urine kappa light ch ain measurement [facility] Work Phone: Urine kappa light ch ain measurement [facility] US Thyroid gland [facility] Walking distance 6 [address] [facility] End: 10-06-2024 XR Hand - left 2 Views XR Hand Left 2 Views Imaging Routine Pain 1 Occurrences starting 10/06/2023 until 10/06/2024 [employer] Work Phone: Comment on above: 1 Occurrences starting 10/06/2023 until 10/06/2024 End: 09-02-2025 XR Knee - bilateral AP and Lateral W standing XR Knees Standing Bilateral AP/ LAT Imaging Routine Pain 1 Occurrences starting 09/02/2024 until 09/02/2025 [employer] Work Phone: Comment on above: 1 Occurrences starting 09/02/2024 until 09/02/2025 [facility] Immunizations Immunization Date Immunization Notes Care Provider Fa cility 09-03-2024 influenza, high dose seasonal, preservative-free Ramírez Cunninghma MD Work Phone: [facility] 09-03-2024 influenza virus vacc ine, unspecified formulation Meliza Rust [facility] 10-17-2023 Covid (Spikevax) Dr. Jennifer Gordon Work Phone: [facility] 10-17-2023 influenza, injectabl e, quadrivalent, preservative free Dr. Jennifer Gordon Work Phone: [facility] 10-17-2023 influenza virus vacc ine, unspecified formulation Rivas Jules MD Work Phone: [facility] 10-14-2022 Covid Moderna Bivale nt Booster Dr. Jennifer Gordon Work Phone: [facility] 10-14-2022 Influenza, high dose seasonal Dr. Jennifer Gordon MD Work Phone: [facility] 10-14-2022 influenza, high dose seasonal, preservative-free [employer]C Jonathan Rutherford GRAIN CLEANER Work Phone: [facility] 10-14-2022 influenza, injectabl e, quadrivalent, preservative free Dr. Jennifer Gordon Work Phone: [facility] 10-14-2022 influenza virus vacc ine, unspecified formulation Provider System [facility] 10-27-2021 Covid (Moderna) [employer] Jonathan Rutherford GRAIN CLEANER Work Phone: [facility] 10-13-2021 influenza, injectabl e, quadrivalent, preservative free Dr. Jennifer Gordon Work Phone: [facility] 10-13-2021 influenza, seasonal, injectable [employer]C Jonathan Rutherford GRAIN CLEANER Work Phone: [facility] 01-08-2021 Covid (Augie & Augie) [employer]C Jonathan Rutherford GRAIN CLEANER Work Phone: [facility] 08-20-2020 influenza, injectabl e, quadrivalent, preservative free Dr. Jennifer Grodon Work Phone: [facility] 08-20-2020 influenza, seasonal, injectable [employer]C Jonathan Hellinger GRAIN CLEANER Work Phone: [facility] 08-13-2019 Influenza, high dose seasonal Dr. Jennifer Gordon MD Work Phone: [facility] 08-13-2019 influenza, high dose seasonal, preservative-free [employer] Jonathan Hellinger GRAIN CLEANER Work Phone: [facility] 09-17-2018 influenza, injectabl e, quadrivalent, preservative free Dr. Jennifer Gordon Work Phone: [facility] 09-17-2018 influenza, seasonal, injectable [employer] Jonathan Hellinger GRAIN CLEANER Work Phone: [facility] 01-30-2018 pneumococcal polysaccharide vaccine, 23 valent [employer] Jonathan Yuenlinger GRAIN CLEANER Work Phone: [facility] 09-18-2017 influenza, injectabl e, quadrivalent, preservative free Dr. Jennifer Gordon Work Phone: [facility] 09-18-2017 influenza, seasonal, injectable [employer] Jonathan Hellinger GRAIN CLEANER Work Phone: [facility] 09-18-2017 influenza, seasonal, injectable, preservative free [facility] 09-18-2017 Seasonal, quadrivale nt, recombinant, injectable influenza vaccine, preservative free Dr. Jennifer Gordon Work Phone: [facility] 09-18-2017 influenza virus vacc ine, unspecified formulation [facility] 11-14-2016 influenza, injectabl e, quadrivalent, preservative free Dr. Jennifer Gordon Work Phone: [facility] 11-14-2016 influenza, seasonal, injectable [employer]-C Jonathan Hellinger GRAIN CLEANER Work Phone: [facility] 11-14-2016 influenza, seasonal, injectable, preservative free Jada Glez [facility] 11-14-2016 Seasonal, quadrivale nt, recombinant, injectable influenza vaccine, preservative free Dr. Jennifer Gordon Work Phone: [facility] 01-18-2016 influenza, injectabl e, quadrivalent, preservative free Dr. Jennifer Gordon Work Phone: [facility] 01-18-2016 influenza, seasonal, injectable [employer] Jonathan Rutherford GRAIN CLEANER Work Phone: [facility] 01-18-2016 influenza, seasonal, injectable, preservative free Dr. Jennifer Gordon MD Work Phone: [facility] 01-18-2016 Seasonal, quadrivale nt, recombinant, injectable influenza vaccine, preservative free Dr. Jennifer Gordon Work Phone: [facility] Payers Date Payer Category Payer Self-pay [id number] 2021 Medicaid [id number] 2020 Medicaid [id number] 2020 Medicare Managed Car e (unspecified) [facility] DUAL COMPLETE (HMO SNP) [id number] 2020 Medicare [id number] 2020 Private Health Insurance [id number] 2016 Medicaid [id number] 2016 Medicaid [place] [id number] 2016-Present [id number] 2016 Medicaid [id number] 2.16.840.1.691461.3.249. 13 2013 Medicare xxxxxxxxx [id number]. 13 2013 Medicare [employer] MANAGED [facility] ADVANTAGE CHOICE PPO [id number] 2013-Present [id number] [id number] 2009 Medicare [id number]. [id number] 2009 Medicare [id number] 1958 Unknown [id number] 2.16.840.1.112795.3.579. 2.356 1958 Unknown [id number] 2.16.840.1.468060.3.579. 2.356 1958 Unknown [id number] 2.16.840.1.239820.3.579. 2.356 1958 Unknown [id number] 2.16.840.1.555225.3.579. 2.902 1958 Unknown [id number] 2.16.840.1.351643.3.579. 2.902 1958 Unknown [id number] 2.16.840.1.072319.3.579. 2.3 1958 Unknown [id number] 2.16.840.1.674078.3.579. 2. 1958 Unknown [id number] 2.16.840.1.647883.3.579. 2. 1958 Unknown [id number] 2.16.840.1.146786.3.579. 2. 1958 Unknown [id number] 2.16.840.1.845180.3.579. 2. 1958 Unknown [id number] 2.16.840.1.207011.3.579. 2. 1958 Unknown [id number] 2.16.840.1.820295.3.579. 2. 1958 Unknown [id number] 2.16.840.1.981031.3.579. 2. 1958 Unknown [id number] 2.16.840.1.904833.3.579. 2. 1958 Unknown [id number] 2.16.840.1.027372.3.579. 2.3 1958 Unknown [id number] 2.16.840.1.405015.3.579. 2.430 1958 Unknown [id number] 2.16.840.1.277252.3.579. 2.430 1958 Unknown [id number] 2.16.840.1.110803.3.579. 2.430 Medicare [id number] 2.16.840.1.059625.3.249. 13 Medicaid [id number] Unknown Unknown [id number] 2.16.840.1.529768.3.579. 2.462 Unknown [id number] 2.16.840.1.090837.3.579. 2.462 Unknown [id number] 2.16.840.1.612830.3.579. 2.462 Unknown [id number] 2.16.840.1.841571.3.579. 2.462 Unknown [id number] 2.16.840.1.850838.3.579. 2.462 Unknown [id number] 2.16.840.1.658966.3.579. 2.462 Unknown [id number] 2.16840.1.809590.3.579. 2.462 Unknown [id number] 2.16840.1.788976.3.579. 2.462 Unknown [id number] 2.840.1.878975.3.579. 2.462 Unknown [id number] 2.840.1.590336.3.579. 2.462 Unknown [id number] 2.840.1.610764.3.579. 2.462 Unknown [id number] 2.840.1.512448.3.579. 2.462 Unknown [id number] 2.840.1.205934.3.579. 2.462 Unknown [id number] 2.840.1.115292.3.579. 2.462 Unknown [id number] 2.840.1.737174.3.579. 2.462 Unknown [id number] 2.840.1.192877.3.579. 2.462 Unknown [id number] 2.840.1.395332.3.579. 2.462 Unknown [id number] 2.16840.1.062284.3.579. 2.462 Unknown [id number]. 2.462 Unknown [id number]. 2.462 Unknown [id number]. 2.462 Unknown [id number] [id number]. 2.462 Unknown [id number] [id number]. 2.462 Unknown [id number] [id number]. 2.462 Unknown [id number] [id number]. 2.462 Unknown [id number] 2.16.840.1.846401.3.579. 2.462 Unknown [id number] [id number]. 2.462 Unknown [id number] [id number]. 2.462 Unknown [id number]. 2.462 Social History Date Type Detail Facility Start: 07-04-2017 End: 07-17-2025 Tobacco smoking status [facility] Former smoker [facility] Work Phone: Start: 07-10-1993 End: 07-10-2013 History of tobacco use Current smoker [facility] Work Phone: Start: 07-04-2017 End: 06-03-2024 Cigarettes smoked current (pack per day) - Reported [facility] Start: 1960 Sex Assigned At Not on file [facility] Work Phone: Start: 07-10-1993 End: 07-10-2013 History of tobacco use Cigarette Smoker [facility] Start: 05-07-2019 End: 06-03-2024 Alcohol intake Current non-drinker of alcohol (finding) [facility] Start: 11-14-2016 End: 09-15-2020 Tobacco use and exposure Never used [facility] Start: 12-17-2021 End: 07-19-2022 Exposure to SARS-CoV-2 (event) Not sure [facility] Start: 10-06-2022 End: 02-27-2024 Tobacco smoking status NHIS Unknown if ever smoked [facility] Start: 1960 Sex Assigned At Female [facility] Start: 02-13-2023 History SDOH Financial 2 [facility] Childr en's [facility] Start: 02-13-2023 History SDOH Food Worry 1 [facility] Child osiels [facility] Start: 02-13-2023 History SDOH Food Scarcity 98 [facility] Start: 11-10-2022 End: 06-03-2024 Tobacco use panel [facility] Adult Depression Screening Assessment 0 [facility] Start: 05-18-2018 Gender identity Identifies as female gender (finding) [facility] Start: 05-07-2019 Sexual orientation Heterosexual (finding) [facility] How hard is it for y ou to pay for the very basics like food, housing, medical care, and heating Hard [facility] (I/We) worried wheroberta er (my/our) food would run out before (I/we) got money to buy more. Never true [facility] The food that (I/we) bought just didn't last, and (I/we) didn't have money to get more. DK or Refused [facility] In the past 12 month s, was there a time when you were not able to pay the mortgage or rent on time? No [facility] In the past 12 month s, was there a time when you were not able to pay the mortgage or rent on time? Yes [facility] How hard is it for y ou to pay for the very basics like food, housing, medical care, and heating Somewhat hard [facility] Start: 01-23-2025 End: 02-05-2025 Sex Female (finding) [facility] Mental Status Date Assessment Result Facility 07-17-2025 Cognitive function Level Of Cons ciousness Awake;Alert;Appropriate;Follow s Commands [facility] Work Phone: 01-01-2025 Cognitive function Level Of Cons ciousness Awake;Alert;Appropriate;Follow s Commands [facility] Work Phone: Clinical Notes 03-15-2021 to 07-17-2025 Note Date & Type Note Facility 07-17-2025 Discharge summary [facility] 07-17-2025 Discharge summary Note Date/Time July 17, 2025 10:37pm [facility] Medical Records Department [address] [place] [address] Emergency Department Summary 07/17/25 MR#: [id number] Acct: [id number] Name: RADHA SHAFER Rep #:[id number] : [id number] 65 From: Ramakrishna Maher MD PCP: Dr. 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 She is seen by a dairy store manager at [facility]. She was diagnosed with CPT II. This is a genetic disorder affecting her met embolism offat and may result in dysrhythmia, rhabdomyolysis, hypoglycemia. Patient had a letter from her dairy store manager that instructed whoever cared for her to order specific tests and to treat with D10 half-normal at 1.5 times maintenance Prior similar symptoms: Yes Recent Illness/Hospitalization: Yes PFSH PFSH Medical History Arthrosis of right acromioclavicular [...] of emotional problems Chronic bronchitis Home Medications ?Medication ?Instructions ?Recorded ?Last Taken ?Type Disability Placard #1 ea 02/07/23 Unknown Rx aspirin 81 mg tablet,delayed 81 mg PO DAILY heart heal th 04/18/23 06/12/24 History release (Adult Low Dose Aspirin) cholecalciferol (vitamin D3) 50 50 mcg PO DAILY vitami n 04/18/23 06/12/24 History mcg (2,000 unit) capsule ferrous sulfate 325 mg (65 mg 325 mg PO DAILY 04/18/23 06/12/24 History iron) tablet levocarnitine 330 mg tablet 330 mg PO TID vitamin 04/0606/12/24 History compr.stocking,thigh,short,lrg #24 ea 02/29/24 Unknown Rx vitamin E (dl, acetate) 45 mg (100 45 mg PO QDAY 01/06 Unknown History unit) capsule metoprolol tartrate 100 mg tablet 100 mg PO BID blood pressure #180 02/18/25 Unknown Rx tabs albuterol sulfate 90 mcg/actuation 2 puff inhalation Q 6H PRN 04/04/25 Unknown History aerosol inhaler fluticasone fur. 200 mcg-umeclid 1 inh inhalation JOSE Y breathing 04/04/25 Unknown Rx 62.5 mcg-vilant 25 mcg #3 ea inhalat.powder (Trelegy Ellipta) ipratropium 0.5 mg-albuterol 3 mg 3 ml inhalation Q4-6 H PRN 04/04/25 Unknown Rx (2.5 mg base)/3 mL nebulization shortness of breath or wheezing soln #180 mL doxepin 100 mg capsule 100 mg PO QHS #30 caps 04/08 Unknown Rx tizanidine 4 mg tablet See Rx Instructions .Route 0 04/08/25 Unknown Rx .COMPLEX spasms #150 tabs lisinopril 20 mg tablet 10 mg PO QDAY 04/16/25 Unkno wn History duloxetine 60 mg capsule,delayed 60 mg PO DAILY mental health #90 04/17/25 Unknown Rx release caps nifedipine 30 mg tablet,extended 30 mg PO DAILY blood pressure #90 04/17/25 Unknown Rx release tabs omeprazole 40 mg capsule,delayed 40 mg PO DAILY for ac id reflux #90 04/17/25 Unknown Rx release caps levothyroxine 175 mcg tablet 175 mcg PO DAILY thyroid #90 tabs 05/16/25 Unknown Rx albuterol sulfate 2.5 mg/3 mL mg inhalation Q6 PRN whe ezing 06/17/25 Unknown History (0.083 %) solution for nebulization roflumilast 250 mcg tablet 250 mcg PO QDAY 4 weeks #28 tabs 06/17/25 Unknown Rx (Daliresp) lovastatin 10 mg tablet 10 mg PO QPM cholesterol #90 tabs 07/17/25 Unknown Rx Allergy/AdvReac Type Severity Reaction Status Date / Time Penicillins Allergy Unknown Unknown Verified 06/26/25 14:04 [id number]-vfrm (From AdvReac Severe Diarrhea Verified 06/26/25 14:04 Ajovy Syringe) vancomycin AdvReac Rash Verified 06/26/25 14:04 Family History Mother CVA (cerebral vascular accident) [...] of hysterectomy Hx of total knee replacement Social History household members: family housing: apartment current occupational status: unemployed Smoking [...] do you feel safe at home: Yes ROS ROS ED Constitutional Constitutional ED: Denies chills, fever(s) or subjective Eyes Eyes: Denies blurry vision or change in vision ENT ENT ED: Denies ear pain or rhinorrhea Cardiovascular Cardiovascular: Denies chest pain or palpitations Respiratory/Chest Respiratory/Chest: Denies cough, dyspnea or dyspnea on exertion Gastrointestinal Gastrointestinal: Denies abdominal pain, nausea or vomiting Genitourinary Genitourinary ED: Denies dysuria, hematuria or urinary frequency Musculoskeletal Musculoskeletal: Reports myalgias; Denies arthralgias Integumentary Denies rash Neurologic Neurologic: Reports weakness Endocrine Endocrinology: Denies cold intolerance or heat intolerance EXAM Physical Exam Const Vital Signs: 07/17/25 19:06 07/17/25 19:21 07/17/25 20:31 Temperature 98.2 F Temperature Source Oral Pulse Rate 58 L 81 Respiratory Rate 16 Respiratory Effort Normal Respiratory Pattern Normal Blood Pressure 132/77 H 145/79 H Blood Pressure Mean 95 101 Pulse Ox 99 Oxygen Delivery Method Nasal Cannula Oxygen Flow Rate (L/min) 4 07/17/25 21:00 07/17/25 22:00 Temperature Temperature Source Pulse Rate 65 61 Respiratory Rate 20 H 20 H Respiratory Effort Respiratory Pattern Blood Pressure 165/86 H 168/74 H Blood Pressure Mean 112 105 Pulse Ox 100 93 Oxygen Delivery Method Nasal Cannula Room Air Oxygen Flow Rate (L/min) 4 Positive well nourished and well developed Constitutional Narrative: Appears in no distress. BMI is 37.3. General Appearance ED: well developed, NAD and pallor HEENT Reports moist mucous membranes HEENT Narrative: Head is atraumatic normocephalic. Ears normal. Nares patent. Eyes PERRL and EOMs intact bilaterally General Eye ED: Negative for pale conjunctiva or scleral icterus Neck no lymphadenopathy, supple and no JVD Chest Wall inspection of chest normal Resp normal respiratory effort and clear to auscultation bilaterally Cardio regular rate, regular rhythm, S1 normal heart sound, S2 normal heart sound and no murmurs GI normal to inspection, nondistended, normoactive bowel sounds, non-distended and no masses; Negative for non-tender or hepatosplenomegaly Palpation: tender other (Minimal generalized) Back/Spine no CVA tenderness Extremity normal to inspection General Extremety ED: Yes tenderness Neuro No oriented x3 and No CN's II-XII intact bilaterally Sensorium / Orientation: alert Skin no rashes or lesions noted and no wounds General Skin Exam: pallor; Negative for jaundice MDM MDM MDM Narrative Medical decision making narrative: Patient presents with muscle aches weakness who has a genetic disorder, CPT II (carnitine Palmitoyltransferase II). She handed me a letter from her geneticistat [facility]. Labs that were recommended were ordered. IV fluids were started D10 half-normal saline. According to the document she is not a candidate for outpatient treatment and requires IV of D10 half-normal. This disorder has to do with fat metabolism and may result in hypoglycemia, rhabdomyolysis, inflammation of liver and dysrhythmia. For this reason EKG was also obtained. Lab Data Attestation: I reviewed the patient's lab results. Lab results narrative: CBC reveals anemia. H&H is similar to prior lab results. Patient has mild hyperkalemia Which is probably due to the fact that it is hemolyzed. Since there are no EKG changes to suggest hyperkalemia this will not be repeated. BUNand creatinine are elevated 21 and 1.73. This is slightly elevated compared to prior. Labs: Laboratory Results - last 24 hr 07/17/25 20:56 WBC 7.7 RBC 4.12 L Hgb 11.0 L Hct 35.4 L MCV 85.9 MCH 26.7 L MCHC 31.1 L RDW Std Deviation 41.0 RDW Coeff of Esvin 13.2 Plt Count 254 MPV 10.1 Immature Gran % (Auto) 0.300 Neut % (Auto) 72.5 H Lymph % (Auto) 18.0 L Amador % (Auto) 6.6 Eos % (Auto) 1.6 Baso % (Auto) 1.0 Absolute Neuts (auto) 5.6 Absolute Lymphs (auto) 1.39 Nucleated RBC % 0 Sodium 130 L Potassium 5.9 H Chloride 94 L Carbon Dioxide 26.8 Anion Gap 9 BUN 21 H Creatinine 1.73 H Estim Creat Clear Calc 37.32 L Est GFR (MDRD) Non-Af 32 L BUN/Creatinine Ratio 11.9 Glucose 88 Lactic Acid < 1.0 Calcium 8.7 Total Bilirubin 0.20 AST 35 H ALT 16 Alkaline Phosphatase 89 Total Creatine Kinase 401 H Total Protein 7.1 Albumin 3.9 Globulin 3.2 Albumin/Globulin Ratio 1.2 Patient CPK is elevated approximately 2 times normal. Since this is common withher genetic metabolic abnormality, CPT II. Based on information from geneticistshe will require admission. EKG Initial EKG: Attestation: I personally reviewed and interpreted this EKG as follows: Interpretation: Sinus Rhythm (Rate is 62. The EKG is normal. NJ intervalis 166 ms. QRS duration 100 ms. QT duration 4 and 20 ms. Wiggins is normal.) Management Discussion w/another healthcare provider: Hospitalist (Spoke with Dr. Bynum. Patient was admitted to the PCU he was informed of her disorder and treatment and recommendations by her dairy store manager.) Treatment and Re-Evaluation :: It is an enzyme that plays a crucial role in metabolism fatty acids which is essential for energy production. The myopathic form which the patient has is characterized by myalgias and occasional weakness. Development of rhabdomyolysis. This may lead to kidney failure. This could be triggered by fasting, intense exercise, stress. 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 Call [facility] ([phone]) or report to the closest Emergency Room. Call 911 if necessary. 07/17/252236 <Electronically signed by Ramakrishna Maher MD> Cosigner Signature (if applicable): CC: Dr. Jennifer Gordon MD ~ Signed [facility] Work Phone: 1(728) 639-846408-12-2025 Telephone encounter Note* Telephone Encounter - Nikolai Gray - 06/17/2025 2:50 PM EDT Left message for patient to schedule a follow up appy [facility]08-12-2025 Miscellaneous Notes* Telephone Encounter - Nikolai Gray - 06/17/2025 2:50 PM EDT Left message for patient to schedule a follow up appy [facility] Telephone encounter Note* Telephone Encounter - Meliza Rust - 06/11/2025 2:35 PM EDT Patient called and was stuck in traffic . Wouldn't make it until after 4 she stayed that she will call in about a week. [facility]08-06-2025 Miscellaneous Notes* Telephone Encounter - Meliza Rust - 06/11/2025 2:35 PM EDT Patient called and was stuck in traffic . Wouldn't make it until after 4 she stayed that she will call in about a week. documented in this [facility]Children[facility]07-04-2025 Radiology Diagnostic study note [facility] Imaging Services [address] [place] [address] Thyroid MR#: [id number] Acct: [id number] Name: RADHA SHAFER ANIL Rep #: [id number] : 1960 F 65 From: Shavonne Guevara MD PCP: Dr. Jennifer Gordon MD Status: REG CLI Study:Thyroid Date of Exam: 05/07/25 Exam# [id number] Ordering Dr: Jennifer Gordon MD PROCEDURE: THYROID, [...] abnormality of the thyroidectomy bed. Reading Location: [id number] CC: Dr. Jennifer Gordon MD ~ Manager News: Signed [facility]06-27-2025 Telephone encounter Note* Telephone Encounter - Meaghan Valero - 05/02/2025 10:[address] Hyman [facility] called to see if there was an update on the patient taking or not taking the Dojolvi and if there are any side effects she may be experiencing. Please give them a call at [phone] and ask for a Pharmacist on the Dojolvi team. Thank you, Meaghan [facility]06-27-2025 Miscellaneous Notes* Telephone Encounter - Meaghan Valero - 05/02/2025 10:[address] Hyman, [facility] called to see if there was an update on the patient taking or not taking the Dojolvi and if there are any side effects she may be experiencing. Please give them a call at [phone] and ask for a Pharmacist on the Dojolvi team. Thank you, Meaghan documented in [facility]Children[facility]06-25-2025 NoteHeart & Vascular Clinic Note [facility] Visit Date: 04/30/2025 [...] #HTN #HLD #FELISA #ECHO; 04/2024. Done in [place]. LVEF-60% #CARDIAC MRI Normal biventricular size and [...] ALTEMEIER PROCEDURE; Surgeon: Jada Vargas MD; [place] [facility] [place]; Service: Colorectal CARDIAC CATHETERIZATION N/A 09/26/2022 Procedure: Coronary Angiogram; Surgeon: Tor Long MD; Location: [facility]; Service: Cardiovascular CARDIOVASCULAR STRESS TEST CHOLECYSTECTOMY COLONOSCOPY with biopsies COLONOSCOPY N/A 02/17/2022 Procedure: COLONOSCOPY; Surgeon: Jada Vargas MD; [place] [facility] [place]; Service: Colorectal EGD N/A 08/15/2022 Procedure: ESOPHAGOGASTRODUODENOSCOPY WITH BIOPSY; Surgeon: Tyshawn Santos MD; Location: Endo; Service: Gastroenterology GALLBLADDER HC LEFT HEART CATH N/A 09/26/2022 Procedure: Left Heart Cath; Surgeon: Tor Long MD; Location: [facility]; Service: Cardiovascular HYSTERECTOMY JOINT REPLACEMENT Left knee ORTHOPEDIC SURGERY r wrist surgery, left ankle, right rotator cuff ROTATOR CUFF REPAIR Right SIGMOIDOSCOPY FLEXIBLE N/A 06/23/2022 Procedure: SIGMOIDOSCOPY FLEXIBLE WITH BIOPSY; Surgeon: Tyshawn Santos MD; Location: Endo; Service: Gastroenterology THYROIDECTOMY N/A 07/15/2015 Procedure: TOTAL THYROIDECTOMY; Surgeon: Lopez Alonso MD; Location: [facility]; Service: US ECHO TRANSTHORACIC FOLLOWUP [...] Take 1 (one) table (more content not included)...[facility]06-25-2025 History of Present illness Narrative* Cb Boudreaux MD - 04/30/2025 10:29 AM EDT Heart & Vascular Clinic Note [facility] Visit Date: 04/30/2025 [...] #HTN #HLD #FELISA #ECHO; 04/2024. Done in [place]. LVEF-60% #CARDIAC MRI Normal biventricular size and [...] ALTEMEIER PROCEDURE; Surgeon: Jada Vargas MD; [place] [facility] [place]; Service: Colorectal CARDIAC CATHETERIZATION N/A 09/26/2022 Procedure: Coronary Angiogram; Surgeon: Tor Long MD; Location: [facility]; Service: Cardiovascular CARDIOVASCULAR STRESS TEST CHOLECYSTECTOMY COLONOSCOPY with biopsies COLONOSCOPY N/A 02/17/2022 Procedure: COLONOSCOPY; Surgeon: Jada Vargas MD; [place] [facility] [place]; Service: Colorectal EGD N/A 08/15/2022 Procedure: ESOPHAGOGASTRODUODENOSCOPY WITH BIOPSY; Surgeon: Tyshawn Santos MD; Location: [facility]; Service: Gastroenterology GALLBLADDER HC LEFT HEART CATH N/A 09/26/2022 Procedure: Left Heart Cath; Surgeon: Tor Long MD; Location: [facility]; Service: Cardiovascular HYSTERECTOMY JOINT REPLACEMENT Left knee ORTHOPEDIC SURGERY r wrist surgery, left ankle, right rotator cuff ROTATOR CUFF REPAIR Right SIGMOIDOSCOPY FLEXIBLE N/A 06/23/2022 Procedure: SIGMOIDOSCOPY FLEXIBLE WITH BIOPSY; Surgeon: Tyshawn Santos MD; Location: [facility]; Service: Gastroenterology THYROIDECTOMY N/A 07/15/2015 Procedure: TOTAL THYROIDECTOMY; Surgeon: Lopez Alonso MD; Location: [facility]; Service: US ECHO TRANSTHORACIC FOLLOWUP [...] total) by mouth daily with breakfast . 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 Vancomycin Rash documented in this [id number] Radiology Diagnostic study note [facility] Imaging Services [address] [place] [id number] Lung Screening MR#: [id number] Acct: [id number] Name: RADHA SHAFER Rep #: [id number] : 1960 F 65 From: Chris Tamez MD PCP: Dr. Jennifer Gordon MD Status: REG CLI Study:Low Dose CT Lung Screening Date of Exam : 04/17/25 Exam# [id number] Ordering Dr: John Heredia NP GRAIN CLEANER-C PROCEDURE: LOW DOSE CT LUNG SCREENING 04/17/2025 REASON FOR EXAM: FORMER SMOKER TECHNIQUE: Low Dose CT Lung screening without contrast. Coronal and Sagittal reconstructionseries were provided. One or more dose reduction techniques were used (e.g., Automated exposure control, adjustment of the mA and/or kV according to patient size, use of iterative reconstruction technique). REFERENCE LINK: [employer] Lung-RADS RADIATION DOSE SUMMARY: CTDlvol: 16.28 mGy [...] LDCT. Other Significant Findings: None. Reading Location: [facility] CC: YNES Heredia; Dr. Jennifer Gordon MD ~ Manager News: Signed [facility]06-11-2025 Instructions* Patient Instructions* Yareli Woodruff MA - 2025 4:26 PM EDT It was our pleasure to see you in [facility] today. Please contact: JASON Candelario [phone] FERMIN Downs RMA with questions, concerns, or if you need prescription refills before your next appointment. documented in this [id number] Evaluation note* Diagnosis Onset Date Resolution Status Admit Date Low back pain acute March 27, 025 [...] tive 2025 1:12pm Ventricular tachycardia noneactive J une [...] 17 025 2:44pm FELISA (obstructive sleep apnea) chroni c June 17, 2025 2:44pm Anemia acute June 26 025 1:54pm [facility] Work Phone: 1(248) 296-584605-22-2025 Evaluation note* Diagnosis Onset Date Resolution Status Admit Date Low back pain acute March 27, 025 [...] 16 1:12pm Chronic abdominal pain noneactive Ju 2024 1:12pm Post-operative hypothyroidism noneac tive 2025 1:12pm Ventricular tachycardia noneactive J formerly [facility] 2024 1:12pm Essential hypertension noneactive Ju ne 2024 1:12pm COPD (chronic obstructive pulmonary disease) noneactive April 16 1:12pm Obesity (BMI 30-39.9) noneactive Michael e 2024 1:12pm Smoking greater than 20 pack years acute June 17 2:44pm Stage 3 severe COPD by GOLD classification acute June 17 2:44pm Hypoxemia chronic June 17 2:44pm FELISA (obstructive sleep apnea) chroni c June 17, 2025 2:44pm Anemia acute June 26 025 1:54pm Carnitine palmitoyltransfera se II deficiency acute July 17, 2025 10:51pm Elevated CPK acute July 172024 10:51pm Generalized weakness acute Sept emb2024 10:51pm Myalgia acute July 10:51pm Obesity (BMI 30-39.9) acute Sep tember 2024 10:51pm Secondary rhabdomyolysis acute July 17, 2025 10:51pm [facility] Work Phone: 1(491) 443-800304-30-2025 Telephone encounter Note* Telephone Encounter - Shaina Boykin MD - 03/05/2025 1:47 PM EDT Received a call from Radha this afternoon. She has CPT2. She was admitted last week to [facility] due to gastroenteritis and subsequently elevated [...] She plans to get labs drawn at [place]. I asked her to give us a call if her symptoms to not improve or if she has other questions/concerns. Plan discussed with extrusion technician attending, Dr. Moon, and her primary metabolic provider, Dr. Hyman. Shaina Boykin MD PGY-4 Division of Genetic & Genomic Medicine [facility] Work Phone: [phone] Miscellaneous Notes* Telephone Encounter - Shaina Boykin MD - 03/05/2025 1:47 PM EDT Received a call from Radha this afternoon. She has CPT2. She was admitted last week to [facility] due to gastroenteritis and subsequently elevated [...] She plans to get labs drawn at [place]. I asked her to give us a call if her symptoms to not improve or if she has other questions/concerns. Plan discussed with extrusion technician attending, Dr. Moon, and her primary metabolic provider, Dr. Hyman. Shaina Boykin MD PGY-4 Division of Genetic & Genomic Medicine [facility]* Diagnosis Onset Date Resolution Status Admit Date Left cervical radiculopathy acute February 27, 2025 2:25pm Lumbar stenosis without neurogenic claudication acute February 272024 2:25pm Low back pain acute March 27, 2 025 11:29am Polyneuropathy acute March 27, 2025 [...] 16 1:12pm Chronic abdominal pain noneactive [place] 2024 1:12pm Post-operative hypothyroidism noneac tive 2025 1:12pm Ventricular tachycardia noneactive J formerly [facility] 2024 1:12pm Essential hypertension noneactive [facility] 2024 1:12pm COPD (chronic obstructive pulmonary disease) noneactive April 16 1:12pm Obesity (BMI 30-39.9) noneactive Michael e 2024 1:12pm Smoking greater than 20 pack years acute June 17 2:44pm Stage 3 severe COPD by GOLD classification acute June 17 2:44pm Hypoxemia chronic June 17 025 2:44pm FELISA (obstructive sleep apnea) chroni c June 17, 2025 2:44pm [facility] Work Phone: 1(746) 461-218304-15-2025 History of Present illness Narrative* Adelina Mejia [...] in Direct Patient Care: 5 Narrative: This retail district manager provided spiritual care and supportive presence for the patient. Ripening Room Hand remains available for emotional and spiritual support as needed. Patients Response to Pastoral Care: Expressed Gratitude for Visit Planning for Future Visits: PRN Pastoral care will remain available for emotional and spiritual support as needed. Chaplains can bereached by dialing the on-call number found within the signature of this note. Or, requested by on-call day retail district manager via [place]. Rev. Herve Rubio Ripening Room Hand Spiritual Care Department 02/17/25 2300 Visit Background Visit With Patient Visit By Staff Ripening Room Hand Visit Progression Introduction;Follow-Up Visit Requested By Ripening Room Hand Initiated Visit Source Ripening Room Hand Initiated Visit Type Inpatient Visit Circumstances and Events Routine Visit Visit Length (minutes) 5 Patient's Response to Pastoral Care Expressed Gratitude for Visit Visit Planning PRN Spiritual Assessment Not assessed during visit Druze Assessment Not assessed during this visit Family assessment provided? Unable to asess during this visit * Letitia Obrien MD - 02/17/2025 1:30 PM EDT [facility] [place] Assessment and Plan Radha Shafer is a 64 y.o. female patient of , Physician with history of COPD on home oxygen, struct of sleep apnea, hypertension, chronic kidney disease, hypothyroidism, CPT deficiency presented to [facility] on 02/13/2025 with shortness of breath. [...] with dextrose 10%/normal saline genetic specialist at [facility] CK improving, discontinue fluids on February 16 [...] Russell MD - 02/16/2025 12:43 PM EDT [facility] [place]GR[place] Assessment and Plan Radha Shafer is a 64 y.o. female patient of , Physician with history of COPD on home oxygen, struct of sleep apnea, hypertension, chronic kidney disease, hypothyroidism, CPT deficiency presented to [facility] on 02/13/2025 with shortness of breath. [...] with dextrose 10%/normal saline genetic specialist at [facility] CK improving, discontinue fluids on February 16 [...] Russell MD - 02/15/2025 12:49 PM EDT [facility] [place]GRESS NOTE Assessment and Plan Radha Shafer is a 64 y.o. female patient of , Physician with history of COPD on home oxygen, struct of sleep apnea, hypertension, chronic kidney disease, hypothyroidism, CPT deficiency presented to [facility] on 02/13/2025 with shortness of breath. 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 Muscle aches Rhabdomyolysis Elevated CK above 20,000 one presented IV hydration with dextrose 10%/normal saline genetic specialist at [facility] CK in the morning Monitor BMP/magnesium Continue [...] Russell MD - 02/14/2025 3:28 PM EDT [facility] [place]GRESS [place] Assessment and Plan Radha Shafer is a 64 y.o. female patient of , Physician with history of COPD on home oxygen, struct of sleep apnea, hypertension, chronic kidney disease, hypothyroidism, CPT deficiency presented to [facility] on 02/13/2025 with shortness of breath. [...] in Direct Patient Care: 15 Narrative: This retail district manager visited with pt Radha while rounding on the unit. Ripening Room Hand introduced selfand the role of a retail district manager. Listened empathetically while Radha shared her experience, and that shewas having a difficult time staying hydrated. Radha shared no immediate emotional/spiritual needs, but thanked the retail district manager for the visit. Pastoral Care to remain available as needed. 02/14/25 6895 Visit Background Visit With Patient Visit By Student Ripening Room Hand Visit Progression Introduction Visit Requested By Ripening Room Hand Initiated Visit Source Ripening Room Hand Initiated Visit Type Inpatient;Rounding Visit Circumstances and Events Routine Visit Visit Length (minutes) 15 Patient's Response to Pastoral Care Appeared to be well-engaged Visit Planning PRN Spiritual Assessment Not assessed during visit Druze Assessment Not assessed during this visit Family assessment provided? Unable to asess during this visit Kavya Gentile MDiv Ripening Room Hand Senior Software Quality Engineer [facility] On-Call Ripening Room Hand Hotline: [phone] * Delmy Olmedo RN - 02/14/2025 2:26 PM EDT Patient complained of burning up her arm and to her shoulder, after this nurse hung doxycycline Axt. This nurse paused said axt, notified Dr. Sidra Espinoza at this time. documented in this [id number] NoteHMS DISCHARGE SUMMARY -- [facility] Radha Shafer Admitted: 02/13/2025 Discharge Date: 02/18/25 PCP Handoff Recommended Outpatient Testing Follow-up with PCP Results Pending At Discharge None Clinical Summary Radha Shafer is a 64 y.o. female patient of , Physician with history of COPD on home oxygen, struct of sleep apnea, hypertension, chronic kidney disease, hypothyroidism, CPT deficiency presented to [facility] on 02/13/2025 with shortness of breath. [...] with dextrose 10%/normal saline genetic specialist at [facility] CK improving 500 on discharge time, discontinue [...] tablet Commonly known as: (more content not included)...[facility]04-15-2025 Hospital course Narrative* Inge, Bahzat, MD - 02/18/2025 11:52 AM EDT Images from the original note were not included. [facility] [place] -- [facility] Radha Shafer Admitted: 02/13/2025 Discharge Date: 02/18/25 PCP Handoff Recommended Outpatient Testing Follow-up with PCP Results Pending At Discharge None Clinical Summary Radha Shafer is a 64 y.o. female patient of , Physician with history of COPD on home oxygen, struct of sleep apnea, hypertension, chronic kidney disease, hypothyroidism, CPT deficiency presented to [facility] on 02/13/2025 with shortness of breath. [...] with dextrose 10%/normal saline genetic specialist at [facility] CK improving 500 on discharge time, discontinue [...] Trelegy Ellipta 200-62.5-25 mcg Dsdv Generic drug: uniilkgsxri-ctbbwjgdd-qvkpqndf Inhale 1 (one) Inhalation daily . Quantity: [...] On day of discharge I saw Radha Hollis and spent: > 30 minutes on discharge. Completed by: Jossie Alcazar MD on 02/18/25, 11:52 AM documented in this [id number] Plan of care note* Plan of Care [...] level of psychosocial functioning Outcome: Partially Met [id number] Miscellaneous Notes* Plan of Care - Delmy [...] forearm. * Quick Note - Rae Hairston, SOLDERER - 02/14/2025 10:54 PM EDT Received a call from Dr. Anjana Campbell (Genetics Attending at [facility]). Concerned that Rhabdo might need different management d/t genetic deficiency. They recommend D10.9NS @ 150 ml/hr as this deficiency also needs increased calories. 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 The # to reach her is - main office of physician is [phone]. Dr Anjana Campbell (genetics). Tell whomever answers [...] without acute dynamic changes, no STEMI. NSR. NJ interval 144 ms. QRS 90 ms. BPM: [...] ECG and sinus tachycardia Comments: Sinus tachycardia. NJ interval 140 ms. QRS [address] and T wave abnormality. No STEMI. documented in this [id number] NoteHMS PROGRESS NOTE Assessment and Plan Radha Shafer is a 64 y.o. female patient of , Physician with history of COPD on home oxygen, struct of sleep apnea, hypertension, chronic kidney disease, hypothyroidism, CPT deficiency presented to [facility] on 02/13/2025 with shortness of breath. [...] with dextrose 10%/normal saline genetic specialist at [facility] CK improving, discontinue fluids on February 16 [...] affect AUTHENTICATED BY LETITIA OBRIEN ON 02/17/2025 13:31:[address] [place] [address] 02-17-2025 Consult note* Brigette Govea RN - [...] this admission insurance coverage is listed as [facility] MANAGED MEDICARE/[employer] DUAL COMPLETE (O SNP) and [place] as a secondary insurance. Pt denies transportation, medication or food insecurity. Pt denies any concerns relating to obtaining medications or follow up medical care. DISCHARGE CARE RESOURCES: Pt has Hui Whitehead as PCP. The patient is not currently receiving home health services.. Pt's daughter as teachable lawn care worker. Pt does not have services with [facility] Agency on Aging such as [facility]/ [facility]. CM will continue to [...] routine activities due to chronic pain:: Yes [id number] Consult note* Brigette Govea RN - 02/17/2025 [...] this admission insurance coverage is listed as [facility] MANAGED MEDICARE/[facility] DUAL COMPLETE (O SNP) and MED[place] as a secondary insurance. Pt denies transportation, medication or food insecurity. Pt denies any concerns relating to obtaining medications or follow up medical care. DISCHARGE CARE RESOURCES: Pt has Hui Whitehead as PCP. The patient is not currently receiving home health services.. Pt's daughter as teachable lawn care worker. Pt does not have services with [facility] on Aging such as [facility] Waiver/ [facility]. CM will continue to [...] to chronic pain:: Yes documented in this [id number] Plan of care note* Plan of Care [...] level of psychosocial functioning Outcome: Partially Met [id number] Plan of care note* Plan of Care - Rachael Huffman RN - 02/16/2025 1:36 PM EDT Problem: Actual or potential alteration in health Goal: Absence of healthcare acquired conditions Outcome: Partially Met Goal: Knowledge of Interdisciplinary Plan of Care Outcome: Partially Met Goal: Knowledge of Enviroment Outcome: Partially Met Problem: Pressure Injury, Risk of Goal: Absence of pressure injury Outcome: Partially Met [id number] NoteHMS PROGRESS NOTE Assessment and Plan Radha Shafer is a 64 y.o. female patient of , Physician with history of COPD on home oxygen, struct of sleep apnea, hypertension, chronic kidney disease, hypothyroidism, CPT deficiency presented to [facility] on 02/13/2025 with shortness of breath. [...] with dextrose 10%/normal saline genetic specialist at [facility] CK improving, discontinue fluids on February 16 [...] affect AUTHENTICATED BY OLGA RUSSELL, ON 02/16/2025 12:46:50[facility] 02-15-2025 NoteS PROGRESS NOTE Assessment and Plan Radha Shafer is a 64 y.o. female patient of , Physician with history of COPD on home oxygen, struct of sleep apnea, hypertension, chronic kidney disease, hypothyroidism, CPT deficiency presented to [facility] on 02/13/2025 with shortness of breath. 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 Muscle aches Rhabdomyolysis Elevated CK above 20,000 one presented IV hydration with dextrose 10%/normal saline genetic specialist at [facility] CK in the morning Monitor BMP/magnesium Continue [...] affect AUTHENTICATED BY OLGA RUSSELL ON 02/15/2025 12:52:[address] [place] [address] 02-15-2025 Plan of care note* Plan of Care - Rachael Huffman RN - 02/15/2025 11:58 AM EDT Problem: Actual or potential alteration in health Goal: Absence of healthcare acquired conditions Outcome: Partially Met Goal: Knowledge of Interdisciplinary Plan of Care Outcome: Partially Met Goal: Knowledge of Enviroment Outcome: Partially Met [id number] Progress note* Quick Note - Elisabeth Frnacis RN - 02/15/2025 5:35 AM EDT Called [...] 60. Additional iv inserted into left forearm. [id number] Progress note* Quick Note - Rae Hairston CNP - 02/14/2025 10:54 PM EDT Received a call from Dr. Anjana Campbell (Genetics Attending at [facility]). Concerned that Rhabdo might need different management d/t genetic deficiency. They recommend D10.9NS @ 150 ml/hr as this deficiency also needs increased calories. 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 The # to reach her is - main office of physician is [phone]. Dr Anjana Campbell (genetics). Tell whomever answers [...] 1 L NS bolus Additional care provided: [facility] Work Phone: 1(756) 309-107504-11-2025 [facility] PROGRESS NOTE Assessment and Plan Radha Shafer is a 64 y.o. female patient of , Physician with history of COPD on home oxygen, struct of sleep apnea, hypertension, chronic kidney disease, hypothyroidism, CPT deficiency presented to [facility] on 02/13/2025 with shortness of breath. [...] and affect AUTHENTICATED BY OLGA RUSSELL, ON 02/14/2025 15:33:[address] [place] [address] 02-14-2025 Plan of care note* Plan of Care - Delmy Olmedo RN - 02/14/2025 3:27 PM EDT POC intiated Problem: Actual or potential alteration in health Goal: Absence of healthcare acquired conditions Outcome: Partially Met Goal: Knowledge of Interdisciplinary Plan of Care Outcome: Partially Met Goal: Knowledge of Enviroment Outcome: Partially Met [id number] Emergency department Note* Amelia Anderson RN - 02/14/2025 12:35 PM EDT Report called to [facility] for room 4714 [id number] Emergency department Note* Amelia Anderson RN - [...] via nasal cannula Current Needs Required 2 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 SEX: female : 1960 ENCOUNTER DATE: 02/13/25 CSN: [id number] PCP: Erin, Physician History of Presenting Illness/Medical [...] was given 4 baby aspirin by EMS ANTENNA SPECIALIST. No nitroglycerin. Patient states that she was [...] ear normal. Nose: Nose normal. Mouth/Throat: Lips: [place]. Mouth: Mucous membranes are moist. Eyes: General: [...] All other components within normal limits Narrative: [facility] Services has implemented the eGFR calculation [...] Procedure Abnormality Status --------- ------ CBC Auto Differential[[id number]] Abnormal Final result Please view results for these tests on the individual orders. OBTAIN VENOUS BLOOD GASES AND PERFORM CPK TSH BASIC METABOLIC PANEL MAGNESIUM LEVEL CBC AND DIFFERENTIAL Narrative: The following orders were created for panel order CBC and Differential. Procedure Abnormality Status --------- ------ CBC Auto Differential[[id number]] Please view results for these tests on [...] ALTEMEIER PROCEDURE; Surgeon: Jada Vargas MD; [place] [facility] [place]; Service: Colorectal CARDIAC CATHETERIZATION N/A 09/26/2022 Procedure: Coronary Angiogram; Surgeon: Tor Long MD; Location: [facility] BIOLOGY INSTRUCTOR; Service: Cardiovascular CARDIOVASCULAR STRESS TEST CHOLECYSTECTOMY COLONOSCOPY with biopsies COLONOSCOPY N/A 02/17/2022 Procedure: COLONOSCOPY; Surgeon: Jada Vargas MD; [place] [facility] [place]; Service: Colorectal EGD N/A 08/15/2022 Procedure: ESOPHAGOGASTRODUODENOSCOPY WITH BIOPSY; Surgeon: Tyshawn Santos MD; Location: [facility]; Service: Gastroenterology GALLBLADDER HC LEFT HEART CATH N/A 09/26/2022 Procedure: Left Heart Cath; Surgeon: Tor Long MD; Location: [facility] BIOLOGY INSTRUCTOR; Service: Cardiovascular HYSTERECTOMY JOINT REPLACEMENT Left knee ORTHOPEDIC SURGERY r wrist surgery, left ankle, right rotator cuff ROTATOR CUFF REPAIR Right SIGMOIDOSCOPY FLEXIBLE N/A 06/23/2022 Procedure: SIGMOIDOSCOPY FLEXIBLE WITH BIOPSY; Surgeon: Tyshawn Santos MD; Location: [facility]; Service: Gastroenterology THYROIDECTOMY N/A 07/15/2015 Procedure: TOTAL THYROIDECTOMY; Surgeon: Lopez Alonso MD; Location: [facility] NEURO OR; Service: US ECHO TRANSTHORACIC FOLLOWUP [...] total) by mouth daily with breakfast . limdgpknxaf-brtuftwql-bwjucskc (Trelegy Ellipta) 200-62.5-25 mcg DsDv Inhale 1 [...] 89 ml/min) Lung nodule Neuromuscular disorder (HCC) 2015 Obesity On home oxygen therapy Scoliosis [...] 12 mg (12 mg Oral Given 02/13/25 2659) albuterol (PROVENTIL) 2.5 mg /3 mL (0.083 [...] bolus 500 mL (0 mL Intravenous Stopped 02/13/251718) ipratropium-albuteroL (DUO-NEB) 0.5-2.5 mg/3 ml nebulizer solution [...] 5' 5 Wt 98 kg (216 lb) AbR375% BMI 35.94 kg/m In brief, patient is [...] level and did provide 500 ccIVF, unfortunately lab manager had called ED charge nurse to inform [...] Acid: 1.5 [ZW] 1716 Informed by ED outreach specialist that lab team had called to inform [...] No dense focal consolidation is seen. [ZW] 5541 Update: Elevated CPK at 28k, given the [...] . Astrid Sanders DO ED Attending Physician [facility] (Please note that portions of this note may have been completed with a voice recognition program. 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 [x] Patient updated on plan of care [x] All comfort needs addressed [x] Patient updated on duration of visit All questions answered, patient denies further needs. Call light within reach. [id number] Emergency department Note* Meaghan Butler RN - 02/14/2025 5:30 AM EDT Hourly rounding assessment completed on the patient. [x] Patient updated on plan of care [x] All comfort needs addressed [x] Patient updated on duration of visit All questions answered, patient denies further needs. Call light within reach. [id number] Emergency department Note* Meaghan Butler RN - 02/14/2025 4:28 AM EDT Hourly rounding assessment completed on the patient. [x] Patient updated on plan of care [x] All comfort needs addressed [x] Patient updated on duration of visit All questions answered, patient denies further needs. Call light within reach. [id number] Emergency department Note* Meaghan Butler RN - 02/14/2025 3:30 AM EDT Hourly rounding assessment completed on the patient. [x] Patient updated on plan of care [x] All comfort needs addressed [x] Patient updated on duration of visit All questions answered, patient denies further needs. Call light within reach. [id number] Emergency department Note* Meaghan Butler RN - 02/14/2025 2:44 AM EDT Hourly rounding assessment completed on the patient. [x] Patient updated on plan of care [x] All comfort needs addressed [x] Patient updated on duration of visit All questions answered, patient denies further needs. Call light within reach. [id number] Emergency department Note* Meaghan Butler RN - 02/14/2025 1:30 AM EDT Hourly rounding assessment completed on the patient. [x] Patient updated on plan of care [x] All comfort needs addressed [x] Patient updated on duration of visit All questions answered, patient denies further needs. Call light within reach. [id number] Emergency department Note* Meaghan Butler RN - 02/14/2025 12:03 AM EDT Hourly rounding assessment completed on the patient. [x] Patient updated on plan of care [x] All comfort needs addressed [x] Patient updated on duration of visit All questions answered, patient denies further needs. Call light within reach. [id number] Emergency department Note* Meaghan Butler RN - 02/13/2025 11:16 PM EDT Hourly rounding assessment completed on the patient. [x] Patient updated on plan of care [x] All comfort needs addressed [x] Patient updated on duration of visit All questions answered, patient denies further needs. Call light within reach. [id number] History and physical note* Susan Thakur MD - 02/13/2025 8:20 PM EDT [facility]ICAL -- [facility] Patient Name: Radha Shafer : 1960 MR #: [id number] Admit Date: 02/13/2025 Physicians: Erin, Physician (Family); No ref. provider found (Referring) Radha Shafer is a 64 y.o. female patient of Erin, Physician with history of COPD on home oxygen, struct of sleep apnea, hypertension, chronic kidney disease, hypothyroidism, CPT deficiency presented to [facility] on 02/13/2025 with shortness of breath. [...] ALTEMEIER PROCEDURE; Surgeon: Jada Vargas MD; [place] [facility] [place]; Service: Colorectal CARDIAC CATHETERIZATION N/A 09/26/2022 Procedure: Coronary Angiogram; Surgeon: Tor Long MD; Location: [facility]; Service: Cardiovascular CARDIOVASCULAR STRESS TEST CHOLECYSTECTOMY COLONOSCOPY with biopsies COLONOSCOPY N/A 02/17/2022 Procedure: COLONOSCOPY; Surgeon: Jada Vargas MD; [place] [facility] [place] Service: Colorectal EGD N/A 08/15/2022 Procedure: ESOPHAGOGASTRODUODENOSCOPY WITH BIOPSY; Surgeon: Tyshawn Santos MD; Location: Endo; Service: Gastroenterology GALLBLADDER HC LEFT HEART CATH N/A 09/26/2022 Procedure: Left Heart Cath; Surgeon: Tor Long MD; Location: [facility]; Service: Cardiovascular HYSTERECTOMY JOINT REPLACEMENT Left knee ORTHOPEDIC SURGERY r wrist surgery, left ankle, right rotator cuff ROTATOR CUFF REPAIR Right SIGMOIDOSCOPY FLEXIBLE N/A 06/23/2022 Procedure: SIGMOIDOSCOPY FLEXIBLE WITH BIOPSY; Surgeon: Tyshawn Santos MD; Location: Endo; Service: Gastroenterology THYROIDECTOMY N/A 07/15/2015 Procedure: TOTAL THYROIDECTOMY; Surgeon: Lopez Alonso MD; Location: [facility]; Service: US ECHO TRANSTHORACIC FOLLOWUP [...] 5' 5 Wt 98 kg (216 lb) YnQ877% BMI 35.94 kg/m General Appearance: alert; acutely [...] 07/10/2013 Years since quittin.6 Smokeless Tobacco Never [id number] NoteHMS HISTORY AND PHYSICAL -- [facility] Patient Name: Radha Shafer : 1960 MR #: [id number] Admit Date: 02/13/2025 Physicians: Erin, Physician (Family); No ref. provider found (Referring) Radha Shafer is a 64 y.o. female patient of Erin, Physician with history of COPD on home oxygen, struct of sleep apnea, hypertension, chronic kidney disease, hypothyroidism, CPT deficiency presented to [facility] on 02/13/2025 with shortness of breath. [...] ALTEMEIER PROCEDURE; Surgeon: Jada Vargas MD; [place] [facility] [place]; Service: Colorectal CARDIAC CATHETERIZATION N/A 09/26/2022 Procedure: Coronary Angiogram; Surgeon: Tor Long MD; Location: [facility]; Service: Cardiovascular CARDIOVASCULAR STRESS TEST CHOLECYSTECTOMY COLONOSCOPY with biopsies COLONOSCOPY N/A 02/17/2022 Procedure: COLONOSCOPY; Surgeon: Jada Vargas MD; [place] [facility] [place]; Service: Colorectal EGD N/A 08/15/2022 Procedure: ESOPHAGOGASTRODUODENOSCOPY WITH BIOPSY; Surgeon: Tyshawn Santos MD; Location: Endo; Service: Gastroenterology GALLBLADDER HC LEFT HEART CATH N/A 09/26/2022 Procedure: Left Heart Cath; Surgeon: Tor Long MD; Location: [facility]; Service: Cardiovascular HYSTERECTOMY JOINT REPLACEMENT Left knee ORTHOPEDIC SURGERY r wrist surgery, left ankle, right rotator cuff ROTATOR CUFF REPAIR Right SIGMOIDOSCOPY FLEXIBLE N/A 06/23/2022 Procedure: SIGMOIDOSCOPY FLEXIBLE WITH BIOPSY; Surgeon: Tyshawn Santos MD; Location: Endo; Service: Gastroenterology THYROIDECTOMY N/A 07/15/2015 Procedure: TOTAL THYROIDECTOMY; Surgeon: Lopez Alonso MD; Location: [facility]; Service: US ECHO TRANSTHORACIC FOLLOWUP LIMITED WRIST SURGERY Right Family History Family History Problem Relation Age of Onset Heart disease Mother Lupus Mother Stroke Mother Arthrit (more content not included)...[facility]04-10-2025 History and physical note* Susan Thakur MD - 02/13/2025 8:20 PM EDT [facility] [place] -- [facility] Patient Name: Radha Shafer : 1960 MR #: [id number] Admit Date: 02/13/2025 Physicians: No, Physician (Family); No ref. provider found (Referring) Radha Shafer is a 64 y.o. female patient of Erin, Physician with history of COPD on home oxygen, struct of sleep apnea, hypertension, chronic kidney disease, hypothyroidism, CPT deficiency presented to [facility] on 02/13/2025 with shortness of breath. [...] ALTEMEIER PROCEDURE; Surgeon: Jada Vargas MD; [place] [facility] [place]; Service: Colorectal CARDIAC CATHETERIZATION N/A 09/26/2022 Procedure: Coronary Angiogram; Surgeon: Tor Long MD; Location: [facility]; Service: Cardiovascular CARDIOVASCULAR STRESS TEST CHOLECYSTECTOMY COLONOSCOPY with biopsies COLONOSCOPY N/A 02/17/2022 Procedure: COLONOSCOPY; Surgeon: Jada Vargas MD; [place] [facility] [place]; Service: Colorectal EGD N/A 08/15/2022 Procedure: ESOPHAGOGASTRODUODENOSCOPY WITH BIOPSY; Surgeon: Tyshawn Santos MD; Location: Endo; Service: Gastroenterology GALLBLADDER HC LEFT HEART CATH N/A 09/26/2022 Procedure: Left Heart Cath; Surgeon: Tor Long MD; Location: [facility]; Service: Cardiovascular HYSTERECTOMY JOINT REPLACEMENT Left knee ORTHOPEDIC SURGERY r wrist surgery, left ankle, right rotator cuff ROTATOR CUFF REPAIR Right SIGMOIDOSCOPY FLEXIBLE N/A 06/23/2022 Procedure: SIGMOIDOSCOPY FLEXIBLE WITH BIOPSY; Surgeon: Tyshawn Santos MD; Location: [facility]; Service: Gastroenterology THYROIDECTOMY N/A 07/15/2015 Procedure: TOTAL THYROIDECTOMY; Surgeon: Lopez Alonso MD; Location: [facility]; Service: US ECHO TRANSTHORACIC FOLLOWUP [...] 5' 5 Wt 98 kg (216 lb) YbI912% BMI 35.94 kg/m General Appearance: alert; acutely [...] quittin.6 Smokeless Tobacco Never documented in this [id number] Procedure note* ED Procedure Note - Astrid [...] without acute dynamic changes, no STEMI. NSR. NJ interval 144 ms. QRS 90 ms. BPM: 94 Clinical impression: normal ECG [id number] Emergency department Note* Mihaela Chavez RN - 02/13/2025 5:18 PM EDT Received call from Lab, states CPK result will be delayed d/t machine down for maintenance Dr Sanders updated [id number] Procedure note* ED Procedure Note - Astrid [...] ECG and sinus tachycardia Comments: Sinus tachycardia. NJ interval 140 ms. QRS [address] and T wave abnormality. No STEMI. [id number] Physician Emergency department Note* Astrid Sanders DO - 02/13/2025 4:07 PM EDT EMERGENCY MEDICINE PROVIDER NOTE WELCOME TO [facility] NAME: Radha Shafer AGE: 64 y.o. SEX: female : 1960 ENCOUNTER DATE: 02/13/25 CSN: [id number] PCP: Erin, Physician History of Presenting Illness/Medical [...] was given 4 baby aspirin by EMS ANTENNA SPECIALIST. No nitroglycerin. Patient states that she was [...] ear normal. Nose: Nose normal. Mouth/Throat: Lips: [place]. Mouth: Mucous membranes are moist. Eyes: General: [...] All other components within normal limits Narrative: [facility] has implemented the eGFR calculation [...] Procedure Abnormality Status --------- ------ CBC Auto Differential[[id number]] Abnormal Final result Please view results for these tests on the individual orders. OBTAIN VENOUS BLOOD GASES AND PERFORM CPK TSH BASIC METABOLIC PANEL MAGNESIUM LEVEL CBC AND DIFFERENTIAL Narrative: The following orders were created for panel order CBC and Differential. Procedure Abnormality Status --------- ------ CBC Auto Differential[[id number]] Please view results for these tests on [...] ALTEMEIER PROCEDURE; Surgeon: Jada Vargas MD; [place] [facility] [place]; Service: Colorectal CARDIAC CATHETERIZATION N/A 09/26/2022 Procedure: Coronary Angiogram; Surgeon: Tor Long MD; Location: [facility]; Service: Cardiovascular CARDIOVASCULAR STRESS TEST CHOLECYSTECTOMY COLONOSCOPY with biopsies COLONOSCOPY N/A 02/17/2022 Procedure: COLONOSCOPY; Surgeon: Jada Vargas MD; [place] [facility] [place]; Service: Colorectal EGD N/A 08/15/2022 Procedure: ESOPHAGOGASTRODUODENOSCOPY WITH BIOPSY; Surgeon: Tyshawn Santos MD; Location: Endo; Service: Gastroenterology GALLBLADDER HC LEFT HEART CATH N/A 09/26/2022 Procedure: Left Heart Cath; Surgeon: Tor Long MD; Location: [facility]; Service: Cardiovascular HYSTERECTOMY JOINT REPLACEMENT Left knee ORTHOPEDIC SURGERY r wrist surgery, left ankle, right rotator cuff ROTATOR CUFF REPAIR Right SIGMOIDOSCOPY FLEXIBLE N/A 06/23/2022 Procedure: SIGMOIDOSCOPY FLEXIBLE WITH BIOPSY; Surgeon: Tyshawn Santos MD; Location: Endo; Service: Gastroenterology THYROIDECTOMY N/A 07/15/2015 Procedure: TOTAL THYROIDECTOMY; Surgeon: Lopez Alonso MD; Location: [facility]; Service: US ECHO TRANSTHORACIC FOLLOWUP [...] total) by mouth daily with breakfast . zxelrcondfb-iluzfutez-onjbsyvy (Trelegy Ellipta) 200-62.5-25 mcg DsDv Inhale 1 [...] 07/19/2022 Nausea 07/19/2022 Acute hypercapnic respiratory failure ([facility]) 09/02/2024 COPD exacerbation ([facility]) 09/21/2024 Resolved Ambulatory Problems Diagnosis Date Noted [...] over 89 ml/min) Lung nodule Neuromuscular disorder ([facility]) 2015 Obesity On home oxygen therapy Scoliosis [...] flush 5 mL (5 mL Intravenous Given 02/13/25 2305) And sodium chloride 0.9% (NS) (has no [...] 500 mL (0 mL Intravenous Stopped 02/13/25 1719) ipratropium-albuteroL (DUO-NEB) 0.5-2.5 mg/3 ml nebulizer solution 3 mL (3 mL Inhalation Given 02/13/25 1742) methylPREDNISolone sod suc(PF) (SOLU-medrol) Injection 60 mg (60 mg Intravenous Given 02/13/25 1800) sodium chloride (PF) (NS) 0.9 % contrast line flush 10 mL (10 mL Intravenous Given 02/13/25 1721) And sodium chloride (PF) (NS) 0.9 % contrast line flush 80 mL (80 mL Intravenous Given 02/13/25 1721) iopamidoL (ISOVUE-370) 370 mg iodine /mL (76 %) injection 75 mL (75 mL Intravenous Contrast Administered 02/13/25 1720) piperacillin-tazobactam (ZOSYN) IVPB 4.5 g (premix) (0 g Intravenous Stopped 4/10/25 1830) vancomycin (VANCOCIN) 2000 mg in sodium chloride 0.9% 500 mL IVPB (0 mg Intravenous Stopped ) furosemide (LASIX) injection 20 mg (20 mg Intravenous Given 02/13/251917) MDM/ED COURSE: BP (!) 159/87 Pulse 87 Temp 99.1 F (37.3 C) Resp (!) 23 Ht 5' 5 Wt 98 kg (216 lb) RrC126% BMI 35.94 kg/m In brief, patient is a very pleasant 64-year-old female with a PMH as stated above, who presents [facility] ED chief complaint of progressive worsening shortness [...] level and did provide 500 ccIVF, unfortunately lab manager had called ED charge nurse to inform [...] Acid: 1.5 [ZW] 1716 Informed by ED outreach specialist that lab team had called to inform [...] . Astrid Sanders DO ED Attending Physician [facility] (Please note that portions of this note may have been completed with a voice recognition program. 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 Astrid Sanders DO 02/13/25 8037 [id number] Emergency department Triage note* Astrid Connolly RN - 02/13/2025 3:40 PM EDT Pt reports sob and chest pain with hx of copd. Pt was given asa and duoneb treatment. Pt reports feeling much better after duoneb [id number] Emergency department Note* Marina Prado RN - 02/13/2025 3:40 PM EDT Bed: 25 Expected date: Expected time: Means of arrival: Comments: Nick [id number] Telephone encounter Note* Telephone Encounter - Julissa Parikh MA - 02/05/2025 7:33 AM EDT Received messaging requesting refill from [facility] Medication: Doljovi Last Office Visit: 06/03/2024 Next Scheduled Visit: Not scheduled Current Medication as of last visit (yes/no): yes [facility]04-02-2025 Miscellaneous Notes* Telephone Encounter - Julissa Parikh MA - 02/05/2025 7:33 AM EDT Received messaging requesting refill from [facility] Medication: Doljomasood Last Office Visit: 06/03/2024 Next Scheduled Visit: Not scheduled Current Medication as of last visit (yes/no): yes [facility] Evaluation note* Diagnosis Onset Date Resolution Status Admit Date Right shoulder pain acute January 21, 2025 12:57pm Left cervical radiculopathy acute February 27, 2025 2:25pm Lumbar stenosis without neur ogenic claudication acute February 27, 2025 2:25pm Low back pain acute March 27, 2 025 11:29am Polyneuropathy acute March 27, 2025 [...] tive 2025 1:12pm Ventricular tachycardia noneactive J une 2024 1:12pm Essential hypertension noneactive Ju ne 2024 1:12pm COPD (chronic obstructive pulmonary disease) noneactive April 16 1:12pm Obesity (BMI 30-39.9) noneactive Michael e 2024 1:12pm [facility] [place] Work Phone: 1(394) 158-394702-20-2025 Evaluation note* Diagnosis Onset Date Resolution Status [...] cuff acute April 03, 2025 1 :50pm [facility] Work Phone: 1(940) 622-387602-20-2025 Evaluation note* Diagnosis Onset Date Resolution Status [...] apnea) chroni c April 04, 2025 1:38pm [facility] Work Phone: 1(770) 641-714002-20-2025 Evaluation note* Diagnosis Onset Date Resolution Status [...] 2025 1:12pm Chronic abdominal pain noneactive Ju ne 2024 1:12pm Post-operative hypothyroidism noneac tive 2025 1:12pm Ventricular tachycardia noneactive J [facility] 2024 1:12pm Essential hypertension noneactive [facility] 2024 1:12pm COPD (chronic obstructive pulmonary disease) noneactive April 16 1:12pm Obesity (BMI 30-39.9) noneactive Michael e 2024 1:12pm [facility] Work Phone: 1(526) 916-774902-20-2025 Evaluation note* Diagnosis Onset Date Resolution Status [...] abdominal pain noneactive 2024 1:12pm Post-operative hypothyroidism noneac tive 2025 1:12pm Ventricular tachycardia noneactive [facility] 2024 1:12pm Essential hypertension noneactive 2024 1:12pm COPD (chronic obstructive pulmonary disease) noneactive April 16 1:12pm Obesity (BMI 30-39.9) noneactive Apr 1:12pm [facility] Work Phone: 1(161) 750-138912-11-2024 Evaluation note* Diagnosis Onset Date Resolution Status Admit Date 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, 024 1:13pm Prediabetes acute October 1:13pm FELISA (obstructive sleep apnea) chroni c October 16, 2024 1:13pm Stage 3b chronic kidney dise ase (CKD) noneactive October 16 1:13pm Moderate major depression noneactive October 16, 2024 1:13pm Screening for osteoporosis noneactiv e October 16, 2024 1:13pm Mixed hyperlipidemia noneactive Dece mber 2023 1:13pm Chronic abdominal pain noneactive De 2023 1:13pm Post-operative hypothyroidism noneac tive October 16, 2024 1:13pm Ventricular tachycardia noneactive D ecember 2023 1:13pm Essential hypertension noneactive De 2023 1:13pm COPD (chronic obstructive pulmonary disease) noneactive October 1:13pm Hospital discharge follow-up noneact radha October 16, 2024 1:13pm Obesity (BMI 30-39.9) noneactive Dec emb2023 1:13pm Left cervical radiculopathy acute December 26, [...] shoulder pain acute January 21, 2025 12:57pm [facility] [place] Work Phone: 1(260) 211-958212-10-2024 Telephone encounter Note* Telephone Encounter - Cecille Johnson LPN - 10/15/2024 1:57 PM EST Images from the original note were not included. PA for Dojolvi approved by [employer] valid 11/06/2024- 11/05/2025 PA# [id number] Updated: Genetics PA calendar Medication comments Copy of approval letter sent to HIM [id number] Miscellaneous Notes* Telephone Encounter - Cecille Johnson LPN - 10/15/2024 1:57 PM EST Images from the original note were not included. PA for Dojolvi approved by [employer] valid 11/06/2024- 11/05/2025 PA# [id number] Updated: Genetics PA calendar Medication comments Copy of approval letter sent to HIM * Telephone Encounter - Cecille Johnson LPN - 10/15/2024 10:43 AM EST Images from the original note were not included. Received PA renewal request for Dojolvi from [employer] as current PA mateo 11/05. PA submitted with office notes and labs via CMM. [facility] Telephone encounter Note* Telephone Encounter - Cecille Johnson LPN - 10/15/2024 10:43 AM EST Images from the original note were not included. Received PA renewal request for Dojolvi from [employer] as current PA mateo 11/05. PA submitted with office notes and labs via CMM. [facility]11-20-2024 History of Present illness Narrative* Marsha Miguel [...] Discharge Plan Status: In-basket message received from [employer]. Patient has [employer] Medicaid which will not [...] Alcazar MD - 09/24/2024 12:20 PM EST [facility] [place] Assessment and Plan Radha Shafer is a 64 y.o. female smoker with background history of COPD and attendant chronic respiratory failure on 4 L NC at baseline, FELISA, HTN, CKD, hypothyroidism and CPT deficiency who presented to [facility] on 09/21/2024 with SOB. CXR showed [...] deficiency CPK chronically elevated. [facility] oral intake. Morbid obesity BMI [...] Larson MD - 09/23/2024 3:32 PM EST OGJY-GP-EISM ENCOUNTER FOR HOME MEDICAL EQUIPMENT PATIENT: Radha Shafer : 1960 Statement of Care: I certify that Radha Shafer is under my care and that I, a Nurse Practitioner, Physician's Jar Filler, or Resident working with me, had a cigb-pj-ccba encounter with this patient today to evaluate and discuss the need for home medical equipment. I certify that based on the findings of this evaluation, which included but was not limited to the ldko-cb-tqzl requirements, the following home medical equipment is medically necessary: Shower chairand grab bar. Signed by: Chanel Larson MD on 09/23/2024 * Chanel Larson MD - 09/23/2024 3:28 PM EST [facility] [place] Assessment and Plan Radha Shafer is a 64 y.o. female smoker with background history of COPD and attendant chronic respiratory failure on 4 L NC at baseline, FELISA, HTN, CKD, hypothyroidism and CPT deficiency who presented to [facility] on 09/21/2024 with SOB. CXR showed [...] deficiency CPK chronically elevated. [facility] oral intake. Resolved acute medical [...] Larson MD - 09/22/2024 9:45 AM EST [facility] [place] Assessment and Plan Assessment and Plan Radha Shafer is a 64 y.o. female smoker with background history of COPD and attendant chronic respiratory failure on 4 L NC at baseline, FELISA, HTN, CKD, hypothyroidism and CPT deficiency who presented to [facility] on 09/21/2024 with SOB. CXR showed [...] deficiency CPK chronically elevated. [facility] CK 713. Continue gentle fluid hydration. [...] and affect, no agitation documented in this [id number] Miscellaneous Notes* Quick Note - Emy Strickland [...] nebulizer and MDI as needed. Discussed associated manager intermediate issues with non compliant FELISA. * Plan of Care - Jaspreet Barnes RN - 09/24/2024 10:39 AM EST Problem: Actual or potential alteration in health Goal: Absence of healthcare acquired conditions 09/24/2024 1039 by Jaspreet Barnes, JASON Outcome: Partially Met 09/24/2024 1027 by Jaspreet Barnes, JASON Outcome: Partially Met Goal: Knowledge of Interdisciplinary Plan of Care 09/24/2024 1039 by Jaspreet Barnes RN Outcome: Partially Met 09/24/2024 1027 by Jaspreet Barnes, JASON Outcome: Partially Met Goal: Knowledge of Enviroment 09/24/2024 1039 by Jsapreet Barnes, JASON Outcome: Partially Met 09/24/2024 1027 [...] Partially Met * Quick Note - Brianna Tan RD - 09/23/2024 12:19 PM EST CHART [...] functioning Outcome: Partially Met documented in this [id number] Progress note* Quick Note - Emy Strickland RN - 09/25/2024 12:30 PM EST Charting of SN Georgiahna Flores [id number] NoteHMS DISCHARGE SUMMARY -- [facility] Radha Shafer Admitted: 09/21/2024 Discharge Date: 09/25/24 PCP Handoff Recommended Outpatient Testing Follow-up with PCP Results Pending At Discharge Stool PCR Clinical Summary Radha Shafer is a 64 y.o. female smoker with background history of COPD and attendant chronic respiratory failure on 4 L NC at baseline, FELISA, HTN, CKD, hypothyroidism and CPT deficiency who presented to [facility] on 09/21/2024 with SOB. CXR showed [...] deficiency CPK chronically elevated. [facility] Liberalize oral intake. Morbid obesity BMI [...] 1 (one) capsule ( (more content not included)...[facility] 09-25-2024 Hospital course Narrative* Jossie Alcazar MD - 09/25/2024 11:04 AM EST Images from the original note were not included. [facility] [place] -- [facility] Radha Shafer Admitted: 09/21/2024 Discharge Date: 09/25/24 PCP Handoff Recommended Outpatient Testing Follow-up with PCP Results Pending At Discharge Stool PCR Clinical Summary Radha Shafer is a 64 y.o. female smoker with background history of COPD and attendant chronic respiratory failure on 4 L NC at baseline, FELISA, HTN, CKD, hypothyroidism and CPT deficiency who presented to [facility] on 09/21/2024 with SOB. CXR showed [...] deficiency CPK chronically elevated. [facility] Liberalize oral intake. Morbid obesity BMI [...] Trelegy Ellipta 200-62.5-25 mcg Dsdv Generic drug: wtyawqybmxo-rlavbwztq-pbrttcih Inhale 1 (one) Inhalation daily . Quantity: 60 each Xifaxan 550 mg tablet Generic drug: rifAXIMin Take 1 (one) tablet (550 mg total) by mouth 3 (three) times a day . * There are duplicate medications prescribed to the patient Stopped Medications fluticasone propionate 50 mcg/actuation nasal spray Commonly known as: FLONASE Physician(s) Follow Up: No follow-up provider specified. Condition at Discharge: Fair Disposition: Home I reviewed discharge recommendations with the patient in person. Patient instructions, including activity, were given to the patient/family at discharge. On day of discharge I saw Radha Shafer and spent: > 30 minutes on discharge. Completed by: Jossie Alcazar MD on 09/25/24, 11:04 AM documented in this [id number] Plan of care note* Plan of Care [...] maximum level of psychosocial functioning Outcome: Met [id number] NoteHMS PROGRESS NOTE Assessment and Plan Radha Shafer is a 64 y.o. female smoker with background history of COPD and attendant chronic respiratory failure on 4 L NC at baseline, FELISA, HTN, CKD, hypothyroidism and CPT deficiency who presented to [facility] on 09/21/2024 with SOB. CXR showed [...] deficiency CPK chronically elevated. [facility] Liberalize oral intake. Morbid obesity BMI [...] and affect, no agitation AUTHENTICATED BY JOSSIE ALCAZAR ON 09/24/2024 12:24:12[facility] 09-24-2024 Progress note* Quick Note - [...] nebulizer and MDI as needed. Discussed associated halfway issues with non compliant FELISA. [id number] Plan of care note* Plan of Care - Jaspreet Barnes RN - 09/24/2024 10:39 AM EST Problem: Actual or potential alteration in health Goal: Absence of healthcare acquired conditions 09/24/2024 1039 by Jaspreet Barnes, RN Outcome: Partially Met 09/24/2024 1027 by Jaspreet Barnes, RN Outcome: Partially Met Goal: Knowledge of Interdisciplinary Plan of Care 09/24/2024 1039 by Jaspreet Barnes, RN Outcome: Partially Met 09/24/2024 1027 by [...] by Jaspreet Barnes RN Outcome: Partially Met [place] [id number] Plan of care note* Plan of Care [...] level of psychosocial functioning Outcome: Partially Met [place] [id number] Plan of care note* Plan of Care [...] level of psychosocial functioning Outcome: Partially Met [id number] JoerHLAL-TB-BITD ENCOUNTER FOR HOME MEDICAL EQUIPMENT PATIENT: Radha Shafer : 1960 Statement of Care: I certify that Radha Shafer is under my care and that I, a Nurse Practitioner, Physician's Jar Filler, or Resident working with me, had a oxml-at-ubqn encounter with this patient today to evaluate and discuss the need for home medical equipment. I certify that based on the findings of this evaluation, which included but was not limited to the iltt-vg-shtp requirements, the following home medical equipment is medically necessary: Shower chair and grab bar. Signed by: Chanel Larson MD on 09/23/2024 AUTHENTICATED BY CHANEL LARSON, ON 09/23/2024 15:33:[address] [place], [place] [id number] NoteS PROGRESS NOTE Assessment and Plan Radha Shafer is a 64 y.o. female smoker with background history of COPD and attendant chronic respiratory failure on 4 L NC at baseline, FELISA, HTN, CKD, hypothyroidism and CPT deficiency who presented to [facility] on 09/21/2024 with SOB. CXR showed [...] deficiency CPK chronically elevated. [facility] oral intake. Resolved acute medical [...] agitation AUTHENTICATED BY CHANEL LARSON, ON 09/23/2024 15:29:[address] [place], [place] [id number] Progress note* Quick Note - Brianna Tan, [...] within 6 days. JOLIE Chang, RASHEEDN, LD [id number] Consult note* Marsha Miguel, ASSOCIATE [facility] [employer] [facility] - 09/23/2024 11:46 AM ESTAssociated Order(s): IP CONSULT TO CARE MANAGEMENT Care Management Consult Note Date: 09/23/2024 Time: 11:56 AM Patient Name: Radha Shafer Date of : 1960 Reason for Consult: Discharge Plan: Plan A: Home Discharging Transportation Plan: Discharge Plan Status: Spoke with Dr. Larson. Patient was requesting to speak with hospice social worker. In to see patient. Patient was [...] reports she follows with Dr. Gordon in [place] for primary care. Patient requesting grab bars, a shower chair, and a wedge for sleeping. No other needs identified at this time. Spoke with Aramis with [employer]. [employer] does not have wedge pillows. Secure chat sent to Dr. Larson regarding need for shower chair and grab bar. In-basket message sent to [employer]. Assessment and Background Information: Living Arrangements: Children [...] (!) Yes Location of chronic pain:: back [id number] Consult note* Marsha Miguel LISW - 09/23/2024 11:46 AM ESTAssociated Order(s): IP CONSULT TO CARE MANAGEMENT Care Management Consult Note Date: 09/23/2024 Time: 11:56 AM Patient Name: Radha Shafer Date of : 1960 Reason for Consult: Discharge Plan: Plan A: Home Discharging Transportation Plan: Discharge Plan Status: Spoke with Dr. Larson. Patient was requesting to speak with hospice social worker. In to see patient. Patient was [...] reports she follows with Dr. Gordon in [place] for primary care. Patient requesting grab bars, a shower chair, and a wedge for sleeping. No other needs identified at this time. Spoke with Aramis with [employer]. [employer] does not have wedge pillows. Secure chat sent to Dr. Larson regarding need for shower chair and grab bar. In-basket message sent to [employer]. Assessment and Background Information: Living Arrangements: Children [...] of chronic pain:: back documented in this [id number] Plan of care note* Plan of Care - Prema Fowler, RN - 09/23/2024 1:03 AM EST Problem: [...] level of psychosocial functioning Outcome: Partially Met [id number] NoteHMS PROGRESS NOTE Assessment and Plan Assessment and Plan Radha Shafer is a 64 y.o. female smoker with background history of COPD and attendant chronic respiratory failure on 4 L NC at baseline, FELISA, HTN, CKD, hypothyroidism and CPT deficiency who presented to [facility] on 09/21/2024 with SOB. CXR showed [...] deficiency CPK chronically elevated. [facility]. Continue gentle fluid hydration. [...] agitation AUTHENTICATED BY CHANEL LARSON, ON 09/23/2024 15:32:03[facility]11-17-2024 Plan of care note* Plan of [...] level of psychosocial functioning Outcome: Partially Met [id number] Emergency department Note* Meaghan Butler RN - 09/21/2024 11:10 PM EST Report given to room 3718 nurse [id number] Emergency department Note* Meaghan Butler RN - 09/21/2024 11:10 PM EST Spoke with [facility]. Pt had methylprednisolone at 2110. Next dose to be given 8 hours later [id number] Emergency department Note* Meaghan Butler RN - 09/21/2024 11:10 PM EST Report given to room 3718 nurse * Meaghan Butler RN - 09/21/2024 11:10 PM EST Spoke with [facility]. Pt had methylprednisolone at 2110. Next dose [...] Talbot MD - 09/21/2024 8:43 PM EST [facility] ED note NAME: Radha Shafer 64 y.o. CSN: [id number] PCP: No, Physician History: Chief Complaint: Shortness [...] ALTEMEIER PROCEDURE; Surgeon: Jada Vargas MD; [place] [facility]; Service: Colorectal CARDIAC CATHETERIZATION N/A 09/26/2022 Procedure: Coronary Angiogram; Surgeon: Tor Long MD; Location: [facility]; Service: Cardiovascular CARDIOVASCULAR STRESS TEST CHOLECYSTECTOMY COLONOSCOPY with biopsies COLONOSCOPY N/A 02/17/2022 Procedure: COLONOSCOPY; Surgeon: Jada Vargas MD; [place] [facility] [place]; Service: Colorectal EGD N/A 08/15/2022 Procedure: ESOPHAGOGASTRODUODENOSCOPY WITH BIOPSY; Surgeon: Tyshawn Santos MD; Location: Endo; Service: Gastroenterology GALLBLADDER HC LEFT HEART CATH N/A 09/26/2022 Procedure: Left Heart Cath; Surgeon: Tor Long MD; Location: [facility]; Service: Cardiovascular HYSTERECTOMY JOINT REPLACEMENT Left knee ORTHOPEDIC SURGERY r wrist surgery, left ankle, right rotator cuff ROTATOR CUFF REPAIR Right SIGMOIDOSCOPY FLEXIBLE N/A 06/23/2022 Procedure: SIGMOIDOSCOPY FLEXIBLE WITH BIOPSY; Surgeon: Tyshawn Santos MD; Location: [facility]; Service: Gastroenterology THYROIDECTOMY N/A 07/15/2015 Procedure: TOTAL THYROIDECTOMY; Surgeon: Lopez Alonso MD; Location: [facility]; Service: US ECHO TRANSTHORACIC FOLLOWUP [...] Socioeconomic History Marital status: Occupational History 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 cichhhakjvf-jclktnlel-scpjcool (Trelegy Ellipta) 200-62.5-25 mcg DsDv Inhale 1 [...] All other components within normal limits Narrative: [facility] has implemented the eGFR calculation [...] Procedure Abnormality Status --------- ------ CBC Auto Differential[[id number]] Abnormal Final result Please view results for these tests on the individual orders. 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 Hx of colonic polyps 01/07/2022 Rectal prolapse 03/01/2022 Diarrhea 06/21/2022 Non-traumatic rhabdomyolysis 06/25/2022 KRISTIN (acute kidney injury) ([facility]) 06/26/2022 CKD (chronic kidney disease) stage 3, GFR 30-59 ml/min ([facility]) 06/26/2022 Pain of upper abdomen 07/19/2022 Nausea 07/19/2022 Acute hypercapnic respiratory failure ([facility]) 09/02/2024 Resolved Ambulatory Problems Diagnosis Date Noted No Resolved Ambulatory Problems Past Medical History: Diagnosis Date Anxiety Arthritis Back pain Bladder problem Cancer ([facility]) Chronic pain disorder Colitis COPD (chronic obstructive pulmonary disease) ([facility]) Depression Diabetes ([facility]) Diverticulosis Emphysema of lung ([facility]) GERD (gastroesophageal reflux disease) Hepatic steatosis History of echocardiogram History of stress test Hypothyroidism Kidney disease, chronic, stage I (GFR over 89 ml/min) Lung nodule Neuromuscular disorder ([facility]) 2015 Obesity On home oxygen therapy Scoliosis [...] None Sally Talbot MD ED Attending Physician [facility] Emergency Department (Please note that portions of this note have been completed with a voice recognition software. Efforts were made to correct any errors, but occasionally words are mis-transcribed.) Sally Talbot MD 09/21/242158 * Meaghan Butler RN [...] of arrival: Comments: Alireza documented in this [id number] Emergency department Note* Meaghan Butler RN - 09/21/2024 10:14 PM EST Hourly rounding assessment completed on the patient. [x] Patient updated on plan of care [x] All comfort needs addressed [x] Patient updated on duration of visit All questions answered, patient denies further needs. Call light within reach. [id number] History and physical note* Nabila Chavez MD - 09/21/2024 10:01 PM EST [facility] [place] AND [place]YSICAL -- [facility] Patient Name: Radha Shafer : 1960 MR #: [id number] Admit Date: 09/21/2024 Physicians: No, Physician (Family); No ref. provider found (Referring) Radha Shafer is a 64 y.o. female patient of No, Physician with history of COPD, chronic hypoxemic respiratory failure on 4L NC at baseline, hypothyroidism, CPT deficiency, HTN, CKD, FELISA presentedto [facility] on 09/21/2024 with shortness of breath. [...] CPT deficiency, HTN, CKD, FELISA presented to [facility] on 09/21/2024 with shortness of breath. [...] ml/min) stage 3 Lung nodule Neuromuscular disorder ([facility]) 2015 I have cpt2 difficency Obesity On home oxygen therapy 2L via NC, PRN with walking, activity Scoliosis 03/2022 Sleep apnea noncompliant with CPAP; uses home oxygen Sleep apnea, obstructive Past Surgical History Past Surgical History: Procedure Laterality Date ALTEMEIER PROCEDURE N/A 03/30/2022 Procedure: ALTEMEIER PROCEDURE; Surgeon: Jada Vargas MD; [place] [facility] [place]; Service: Colorectal CARDIAC CATHETERIZATION N/A 09/26/2022 Procedure: Coronary Angiogram; Surgeon: Tor Long MD; Location: [facility]; Service: Cardiovascular CARDIOVASCULAR STRESS TEST CHOLECYSTECTOMY COLONOSCOPY with biopsies COLONOSCOPY N/A 02/17/2022 Procedure: COLONOSCOPY; Surgeon: Jada Vargas MD; [place] [facility] [place]; Service: Colorectal EGD N/A 08/15/2022 Procedure: ESOPHAGOGASTRODUODENOSCOPY WITH BIOPSY; Surgeon: Tyshawn Santos MD; Location: [facility]; Service: Gastroenterology GALLBLADDER HC LEFT HEART CATH N/A 09/26/2022 Procedure: Left Heart Cath; Surgeon: Tor Long MD; Location: [facility]; Service: Cardiovascular HYSTERECTOMY JOINT REPLACEMENT Left knee ORTHOPEDIC SURGERY r wrist surgery, left ankle, right rotator cuff ROTATOR CUFF REPAIR Right SIGMOIDOSCOPY FLEXIBLE N/A 06/23/2022 Procedure: SIGMOIDOSCOPY FLEXIBLE WITH BIOPSY; Surgeon: Tyshawn Santos MD; Location: Endo; Service: Gastroenterology THYROIDECTOMY N/A 07/15/2015 Procedure: TOTAL THYROIDECTOMY; Surgeon: Lopez Alonso MD; Location: [facility]; Service: US ECHO TRANSTHORACIC FOLLOWUP [...] normal coloration Psych: normal mood and affect [id number] NoteHMS HISTORY AND PHYSICAL -- [facility] Patient Name: Radha Shafer : 1960 MR #: [id number] Admit Date: 09/21/2024 Physicians: No, Physician (Family); No ref. provider found (Referring) Radha Shafer is a 64 y.o. female patient of Erin, Physician with history of COPD, chronic hypoxemic respiratory failure on 4L NC at baseline, hypothyroidism, CPT deficiency, HTN, CKD, FELISA presented to [facility] on 09/21/2024 with shortness of breath. [...] CPT deficiency, HTN, CKD, FELISA presented to [facility] on 09/21/2024 with shortness of breath. [...] ALTEMEIER PROCEDURE; Surgeon: Jada Vargas MD; [place] [facility] [place] [place]; Service: Colorectal CARDIAC CATHETERIZATION N/A 09/26/2022 Procedure: Coronary Angiogram; Surgeon: Tor Long MD; Location: [facility]; Service: Cardiovascular CARDIOVASCULAR STRESS TEST CHOLECYSTECTOMY COLONOSCOPY with biopsies COLONOSCOPY N/A 02/17/2022 Procedure: COLONOSCOPY; Surgeon: Jada Vargas MD; [place] [facility] [place]; Service: Colorectal EGD N/A 08/15/2022 Procedure: ESOPHAGOGASTRODUODENOSCOPY WITH BIOPSY; Surgeon: Tyshawn Santos MD; Location: Endo; Service: Gastroenterology GALLBLADDER HC LEFT HEART CATH N/A 09/26/2022 Procedure: Left Heart Cath; Surgeon: Tor Long MD; Location: [facility]; Service: Cardiovascular HYSTERECTOMY (more content not included)...[facility]11-16-2024 History and physical note* Nabila Chavez MD - 09/21/2024 10:01 PM EST [facility] [facility] -- [facility] Patient Name: Radha Shafer : 1960 MR #: [id number] Admit Date: 09/21/2024 Physicians: No, Physician (Family); No ref. provider found (Referring) Radha Shafer is a 64 y.o. female patient of No, Physician with history of COPD, chronic hypoxemic respiratory failure on 4L NC at baseline, hypothyroidism, CPT deficiency, HTN, CKD, FELISA presentedto [facility] on 09/21/2024 with shortness of breath. [...] CPT deficiency, HTN, CKD, FELISA presented to [facility] on 09/21/2024 with shortness of breath. [...] ALTEMEIER PROCEDURE; Surgeon: Jada Vargas MD; [place] [facility] [place]; Service: Colorectal CARDIAC CATHETERIZATION N/A 09/26/2022 Procedure: Coronary Angiogram; Surgeon: Tor Long MD; Location: [facility]; Service: Cardiovascular CARDIOVASCULAR STRESS TEST CHOLECYSTECTOMY COLONOSCOPY with biopsies COLONOSCOPY N/A 02/17/2022 Procedure: COLONOSCOPY; Surgeon: Jada Vargas MD; [place] [facility] [place]; Service: Colorectal EGD N/A 08/15/2022 Procedure: ESOPHAGOGASTRODUODENOSCOPY WITH BIOPSY; Surgeon: Tyshawn Santos MD; Location: Endo; Service: Gastroenterology GALLBLADDER HC LEFT HEART CATH N/A 09/26/2022 Procedure: Left Heart Cath; Surgeon: Tor Long MD; Location: [facility]; Service: Cardiovascular HYSTERECTOMY JOINT REPLACEMENT Left knee ORTHOPEDIC SURGERY r wrist surgery, left ankle, right rotator cuff ROTATOR CUFF REPAIR Right SIGMOIDOSCOPY FLEXIBLE N/A 06/23/2022 Procedure: SIGMOIDOSCOPY FLEXIBLE WITH BIOPSY; Surgeon: Tyshawn Snatos MD; Location: Endo; Service: Gastroenterology THYROIDECTOMY N/A 07/15/2015 Procedure: TOTAL THYROIDECTOMY; Surgeon: Lopez Alonso MD; Location: [facility]; Service: US ECHO TRANSTHORACIC FOLLOWUP [...] normal mood and affect documented in this [id number] Emergency department Note* Meaghan Butler RN - 09/21/2024 9:50 PM EST Hourly rounding assessment completed on the patient. [x] Patient updated on plan of care [x] All comfort needs addressed [x] Patient updated on duration of visit All questions answered, patient denies further needs. Call light within reach. [id number] Emergency department Note* Delmy Brock, GILDA - 09/21/2024 9:14 PM EST RT at bedside for ABG. Results given to MD. BiPAP initiated 21/04 rate of 18, FiO2 of 35%. Patient does state she wears 4L O2 at home around the clock and is noncompliant with her home CPAP.Patient educated on the importance of wearing her CPAP at night regularly. [id number] Physician Emergency department Note* Sally Talbot MD - 09/21/2024 8:43 PM EST [facility] ED note NAME: Radha Alexanderaren 64 y.o. CSN: [id number] PCP: Erin, Physician History: Chief Complaint: Shortness of Breath [...] ALTEMEIER PROCEDURE; Surgeon: Jada Vargas MD; [place] [facility] [place]; Service: Colorectal CARDIAC CATHETERIZATION N/A 09/26/2022 Procedure: Coronary Angiogram; Surgeon: Tor Long MD; Location: [facility]; Service: Cardiovascular CARDIOVASCULAR STRESS TEST CHOLECYSTECTOMY COLONOSCOPY with biopsies COLONOSCOPY N/A 02/17/2022 Procedure: COLONOSCOPY; Surgeon: Jada Vargas MD; [place] [facility] [place]; Service: Colorectal EGD N/A 08/15/2022 Procedure: ESOPHAGOGASTRODUODENOSCOPY WITH BIOPSY; Surgeon: Tyshawn Santos MD; Location: [facility]; Service: Gastroenterology GALLBLADDER HC LEFT HEART CATH N/A 09/26/2022 Procedure: Left Heart Cath; Surgeon: Tor Long MD; Location: [facility]; Service: Cardiovascular HYSTERECTOMY JOINT REPLACEMENT Left knee ORTHOPEDIC SURGERY r wrist surgery, left ankle, right rotator cuff ROTATOR CUFF REPAIR Right SIGMOIDOSCOPY FLEXIBLE N/A 06/23/2022 Procedure: SIGMOIDOSCOPY FLEXIBLE WITH BIOPSY; Surgeon: Tyshawn Santos MD; Location: Endo; Service: Gastroenterology THYROIDECTOMY N/A 07/15/2015 Procedure: TOTAL THYROIDECTOMY; Surgeon: Lopez Alonso MD; Location: [facility]; Service: US ECHO TRANSTHORACIC FOLLOWUP [...] Socioeconomic History Marital status: Occupational History 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 Hx of colonic polyps 01/07/2022 Rectal prolapse 03/01/2022 Diarrhea 06/21/2022 Non-traumatic rhabdomyolysis 06/25/2022 KRISTIN (acute kidney injury) ([facility]) 06/26/2022 CKD (chronic kidney disease) stage 3, GFR 30-59 ml/min ([facility]) 06/26/2022 Pain of upper abdomen 07/19/2022 Nausea 07/19/2022 Acute hypercapnic respiratory failure ([facility]) 09/02/2024 Resolved Ambulatory Problems Diagnosis Date Noted [...] None Sally Talbot MD ED Attending Physician [facility] (Please note that portions of this note have been completed with a voice recognition software. Efforts were made to correct any errors, but occasionally words are mis-transcribed.) Sally Talbot MD 09/21/242158 [id number] Emergency department Note* Meaghan Butler RN - 09/21/2024 8:04 PM EST PT PLACED ON 4L FOR O2 AT 84% ON RA. [id number] Emergency department Note* Meaghan Butler RN - 09/21/2024 8:00 PM EST Hourly rounding assessment completed on the patient. [x] Patient updated on plan of care [x] All comfort needs addressed [x] Patient updated on duration of visit All questions answered, patient denies further needs. Call light within reach. [id number] Emergency department Triage note* Meaghan Butler RN - 09/21/2024 7:53 PM EST PT ARRIVED VIA EMS WITH C/O SOB. 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 PT STATES THAT SHE STARTED WITH A HEADACHE THEN HEAVINESS IN CHEST HEAVINESS. PT ARRIVED TO ED ON 4L NC [id number] Emergency department Note* Selena Simms RN - 09/21/2024 7:52 PM EST Bed: 15 Expected date: Expected time: Means of arrival: Comments: Alireza [id number] NoteHeart & Vascular Clinic Note [facility] Visit Date: 09/18/2024 [...] #HTN #HLD #FELISA #ECHO; 04/2024. Done in [place]. LVEF-60% PLAN: --c/w metoprolol --pursue a cardiac [...] ALTEMEIER PROCEDURE; Surgeon: Jada Vargas MD; [place] [facility]; Service: Colorectal CARDIAC CATHETERIZATION N/A 09/26/2022 Procedure: Coronary Angiogram; Surgeon: Tor Long MD; Location: [facility]; Service: Cardiovascular CARDIOVASCULAR STRESS TEST CHOLECYSTECTOMY COLONOSCOPY with biopsies COLONOSCOPY N/A 02/17/2022 Procedure: COLONOSCOPY; Surgeon: Jada Vargas MD; [place] [facility] [place]; Service: Colorectal EGD N/A 08/15/2022 Procedure: ESOPHAGOGASTRODUODENOSCOPY WITH BIOPSY; Surgeon: Tyshawn Santos MD; Location: [facility]; Service: Gastroenterology GALLBLADDER HC LEFT HEART CATH N/A 09/26/2022 Procedure: Left Heart Cath; Surgeon: Tor Long MD; Location: [facility]; Service: Cardiovascular HYSTERECTOMY JOINT REPLACEMENT Left knee ORTHOPEDIC SURGERY r wrist surgery, left ankle, right rotator cuff ROTATOR CUFF REPAIR Right SIGMOIDOSCOPY FLEXIBLE N/A 06/23/2022 Procedure: SIGMOIDOSCOPY FLEXIBLE WITH BIOPSY; Surgeon: Tyshawn Santos MD; Location: [facility]; Service: Gastroenterology THYROIDECTOMY N/A 07/15/2015 Procedure: TOTAL THYROIDECTOMY; Surgeon: Lopez Alonso MD; Location: [facility]; Service: US ECHO TRANSTHORACIC FOLLOWUP [...] Socioeconomic History Marital status: Occupational History 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 Tobacco Use Smoking status: Former Current packs/day: 0.00 Average packs/day: 1 pack/day for 20.0 years (20.0 ttl pk-yrs) Types: Cigarettes Start date: 07/10/1993 Quit date: 07/10/2013 Years since quittin.2 Smokeless tobacco: Never Vaping Use Vaping status: Never Used Substance and Sexual Activity Alcohol use: No Drug use: Yes Frequency: 7.0 times per week Types: Marijuana Comment: currently (more content not included)...[facility] 09-18-2024 History of Present illness Narrative* Cb Boudreaux MD - 09/18/2024 1:51 PM EST Heart & Vascular Clinic Note [facility] Visit Date: 09/18/2024 [...] #HTN #HLD #FELISA #ECHO; 04/2024. Done in [place]. LVEF-60% PLAN: --c/w metoprolol --pursue a cardiac [...] ALTEMEIER PROCEDURE; Surgeon: Jada Vargas MD; [place] [facility] [place]; Service: Colorectal CARDIAC CATHETERIZATION N/A 09/26/2022 Procedure: Coronary Angiogram; Surgeon: Tor Long MD; Location: [facility]; Service: Cardiovascular CARDIOVASCULAR STRESS TEST CHOLECYSTECTOMY COLONOSCOPY with biopsies COLONOSCOPY N/A 02/17/2022 Procedure: COLONOSCOPY; Surgeon: Jada Vargas MD; [place] [facility] [place]; Service: Colorectal EGD N/A 08/15/2022 Procedure: ESOPHAGOGASTRODUODENOSCOPY WITH BIOPSY; Surgeon: Tyshawn Santos MD; Location: Endo; Service: Gastroenterology GALLBLADDER HC LEFT HEART CATH N/A 09/26/2022 Procedure: Left Heart Cath; Surgeon: Tor Long MD; Location: [facility]; Service: Cardiovascular HYSTERECTOMY JOINT REPLACEMENT Left knee ORTHOPEDIC SURGERY r wrist surgery, left ankle, right rotator cuff ROTATOR CUFF REPAIR Right SIGMOIDOSCOPY FLEXIBLE N/A 06/23/2022 Procedure: SIGMOIDOSCOPY FLEXIBLE WITH BIOPSY; Surgeon: Tyshawn Santos MD; Location: Endo; Service: Gastroenterology THYROIDECTOMY N/A 07/15/2015 Procedure: TOTAL THYROIDECTOMY; Surgeon: Lopez Alonso MD; Location: [facility]; Service: US ECHO TRANSTHORACIC FOLLOWUP [...] Socioeconomic History Marital status: Occupational History 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 TJTXHJZINTD-RNIGINQRX-NXRUMYVC (TRELEGY ELLIPTA) 200-62.5-25 MCG DSDV Inhale 1 [...] See above Cb Boudreaux documented in this [id number] Instructions* Patient Instructions* Andree Veras RN - 09/09/2024 2:32 PM EST Images from the original note were not included. It was our pleasure to see you in EP Clinic today. Please contact: JASON Wall at [phone] JASON Candelario at [phone] FERMIN Downs RMA with questions, concerns, or [...] ears, or any other implanted or prosthetic rn medical inpatient services. You have an intrauterine device (IUD) in [...] our office before restarting the medication at [phone]. Please bring your morning medications with you. [...] out of your body. documented in this [id number] History of Present illness Narrative* Jaspreet Barnes [...] Plan Status: Initial assessment completed by JASON Chairezsenior group manager, in the emergency department. Please refer to her note. Care Management will continue to follow. 1044- Patient is discharged home. Assessment and Background Information: documented in this [id number] Miscellaneous Notes* Plan of Care - Jaspreet [...] Goal: Knowledge of Enviroment Outcome: Met * Quick Note - Kayla Mujica [...] Knowledge of Interdisciplinary Plan of Care 09/02/2024 1830 by Cherie Dias RN Outcome: Partially Met 09/02/2024 1830 by Cherie Dias RN Outcome: Partially Met Goal: Knowledge of Enviroment 09/02/2024 1830 by Cherie Dias RN Outcome: [...] Enviroment Outcome: Partially Met documented in this [id number] Plan of care note* Plan of Care - Jaspreet Barnes RN - 09/03/2024 3:32 PM EDT Problem: Actual or potential alteration in health Goal: Absence of healthcare acquired conditions Outcome: Partially Met Goal: Knowledge of Interdisciplinary Plan of Care Outcome: Partially Met Goal: Knowledge of Enviroment Outcome: Partially Met [id number] NoteHMS DISCHARGE SUMMARY -- [facility] Radha Shafer Admitted: 09/02/2024 Discharge Date: 09/03/24 PCP Handoff Recommended Outpatient Testing Follow up with dairy store manager Results Pending At Discharge none Clinical Summary [...] patient brings a piece of paper from dairy store manager that says check cpk and creatine every admission - [place] [address] + but if normal creatine consider outpatient [...] Trelegy Ellipta 200-62.5-25 mcg Dsdv Generic drug: arqamlbsyhw-oaskajulc-qgleyyhk Inhale 1 (one) Inhalation daily . Quantity: [...] On day of discharge I saw Radha Hollis and spent: > 30 minutes on discharge. Completed by: Ramírez Norton (more content not included)...[facility] 09-03-2024 Hospital course Narrative* Ramírez Cunningham MD - 09/03/2024 9:38 AM EDT Images from the original note were not included. [facility] [place] [facility] Radha Shafer Admitted: 09/02/2024 Discharge Date: 09/03/24 PCP Handoff Recommended Outpatient Testing Follow up with dairy store manager Results Pending At Discharge none Clinical Summary [...] patient brings a piece of paper from dairy store manager that says check cpk and creatine every admission - [place] [address] + but if normal creatine consider outpatient [...] Trelegy Ellipta 200-62.5-25 mcg Dsdv Generic drug: xyzdkjhlbdm-kldrenxmw-awwekygm Inhale 1 (one) Inhalation daily . Quantity: [...] On day of discharge I saw Radha Hollis and spent: > 30 minutes on discharge. Completed by: Ramírez Cunningham MD on 09/03/24, 9:38 AM documented in this [id number] Progress note* Quick Note - Kayla Mujica RN - 09/03/2024 1:25 AM EDT Patient provides paper regarding POC for disease. Patient demanding IVF at this time. This RN attempts to explain reasoning for no IVF at this time; patient remains adamant. RN advises patient to speak with rounding physician regarding POC. Stable at this time; will monitor. [id number] Plan of care note* Plan of Care - Kayla Mujica RN - 09/02/2024 10:57 PM EDT Problem: Actual or potential alteration in health Goal: Absence of healthcare acquired conditions Outcome: Met Goal: Knowledge of Interdisciplinary Plan of Care Outcome: Met Goal: Knowledge of Enviroment Outcome: Met [id number] Progress note* Quick Note - Kayla Mujica RN - 09/02/2024 8:00 PM EDT Patient medications verified with patient. Patient takes dojolvi TID; patient supplied medication sent to pharmacy for verification. Per patient,takes zanaflex prn at bed time; pharmacy notified of patient schedule. [id number] Plan of care note* Plan of Care - Cherie Dias RN - 09/02/2024 6:30 PM EDT Problem: Actual or potential alteration in health Goal: Absence of healthcare acquired conditions 09/02/2024 183 by Cherie Dias RN Outcome: Partially Met 09/02/20241829 by Cherie Dias RN Outcome: Partially Met Goal: Knowledge of Interdisciplinary Plan of Care 09/02/2024 183 by Cherie Dias RN Outcome: Partially Met 09/02/20241829 by Cherie Dias RN Outcome: Partially Met Goal: Knowledge of Enviroment 09/02/20241829 by Cherie Dias RN Outcome: Partially Met 09/02/20241829 by Larissa, Cherie, RN Outcome: Partially Met [id number] Plan of care note* Plan of Care - Cherie Dias RN - 09/02/2024 6:30 PM EDT Problem: Actual or potential alteration in health Goal: Absence of healthcare acquired conditions Outcome: Partially Met Goal: Knowledge of Interdisciplinary Plan of Care Outcome: Partially Met Goal: Knowledge of Enviroment Outcome: Partially Met [id number] Consult note* Mihaela Carroll RN - 09/02/2024 [...] that her PCP is Dr. Tomas in [place] and her insurance is [facility] managed medicare and medicaid. Patient stated [...] a baby due in 9 days, offered [facility] services is needed and granddaughter declined stated [...] routine activities due to chronic pain:: Yes [id number] Emergency department Note* Tram Perez RN - 09/02/2024 3:51 PM EDT Report called to receiving RN. All questions answered [id number] Consult note* Mihaela Carroll RN - 09/02/2024 [...] that her PCP is Dr. Tomas in [place] and her insurance is [facility] managed medicare and medicaid. Patient stated [...] a baby due in 9 days, offered [facility] services is needed and granddaughter declined stated that she is very picky about the care the patient gets and the people in her home. Patient stated she has had a fall in the last 6 months and that she still drives. Patient stated that she does not drink but does smoke weed daily for the pain. Patient stated that she has medical [employer] card. Patient uses 02 @4L PRN via [...] to chronic pain:: Yes documented in this [id number] Emergency department Note* Tram Perez RN - [...] CHAND NOTIFIED. FAMILY CAN BE REACHED AT [phone]. * Anna Dutton PSA - 09/02/2024 1:36 PM EDT PT'S GRAND DAUGHTER MARYLU CALLED FOR AN UPDATE. SHE CAN BE CALLED AT [phone]. JASON CHAND NOTIFIED. * Tram Perez RN [...] and tripoding d/t SOB documented in this [id number] Emergency department Note* Tram Perez RN - 09/02/2024 2:34 PM EDT Pt family member Marylu called and updated. All questions answered. She states she will talk to additional family members and pass info along. [id number] Emergency department Note* Anna Dutton PSA - 09/02/2024 2:17 PM EDT PT'S DAUGHTER LUIS CALLED FOR AN UPDATE. JASON CHAND NOTIFIED. FAMILY CAN BE REACHED AT [phone]. [id number] Emergency department Note* Anna Dutton PSA - 09/02/2024 1:36 PM EDT PT'S GRAND DAUGHTER MARYLU CALLED FOR AN UPDATE. SHE CAN BE CALLED AT [phone]. JASON CHAND NOTIFIED. [id number] History and physical note* Nabila Lama MD - 09/02/2024 12:39 PM EDT [facility] [place] -- [facility] Patient Name: Radha Shafer : 1960 MR #: [id number] Admit Date: 09/02/2024 Physicians: No, Physician (Family); No ref. provider found (Referring) Radha Shafer is a 64 y.o. female patient of No, Physician with history of COPD chronic hypoxemic respiratory failure on 4 L of oxygen at home also history of hypertension myopathy with enzyme deficiency, hypothyroidism, GERD, hypertension, obesity and obstructive sleep apnea on CPAP presented to [facility] on 09/02/2024 with worsening shortness of [...] obstructive sleep apnea on CPAP presented to [facility] on 09/02/2024 with worsening shortness of [...] ALTEMEIER PROCEDURE; Surgeon: Jada Vargas MD; [place] [facility] [place]; Service: Colorectal CARDIAC CATHETERIZATION N/A 09/26/2022 Procedure: Coronary Angiogram; Surgeon: Tor Long MD; Location: [facility]; Service: Cardiovascular CARDIOVASCULAR STRESS TEST CHOLECYSTECTOMY COLONOSCOPY with biopsies COLONOSCOPY N/A 02/17/2022 Procedure: COLONOSCOPY; Surgeon: Jada Vargas MD; [place] [facility] [place]; Service: Colorectal EGD N/A 08/15/2022 Procedure: ESOPHAGOGASTRODUODENOSCOPY WITH BIOPSY; Surgeon: Tyshawn Santos MD; Location: Endo; Service: Gastroenterology GALLBLADDER HC LEFT HEART CATH N/A 09/26/2022 Procedure: Left Heart Cath; Surgeon: Tor Long MD; Location: [facility]; Service: Cardiovascular HYSTERECTOMY JOINT REPLACEMENT Left knee ORTHOPEDIC SURGERY r wrist surgery, left ankle, right rotator cuff ROTATOR CUFF REPAIR Right SIGMOIDOSCOPY FLEXIBLE N/A 06/23/2022 Procedure: SIGMOIDOSCOPY FLEXIBLE WITH BIOPSY; Surgeon: Tyshawn Santos MD; Location: Endo; Service: Gastroenterology THYROIDECTOMY N/A 07/15/2015 Procedure: TOTAL THYROIDECTOMY; Surgeon: Lopez Alonso MD; Location: [facility]; Service: US ECHO TRANSTHORACIC FOLLOWUP [...] normal coloration Psych: normal mood and affect [id number] NoteHMS HISTORY AND PHYSICAL -- [facility] Patient Name: Radha Shafer : 1960 MR #: [id number] Admit Date: 09/02/2024 Physicians: No, Physician (Family); No ref. provider found (Referring) Radha Shafer is a 64 y.o. female patient of No, Physician with history of COPD chronic hypoxemic respiratory failure on 4 L of oxygen at home also history of hypertension myopathy with enzyme deficiency, hypothyroidism, GERD, hypertension, obesity and obstructive sleep apnea on CPAP presented to [facility] on 09/02/2024 with worsening shortness of [...] obstructive sleep apnea on CPAP presented to [facility] on 09/02/2024 with worsening shortness of [...] ALTEMEIER PROCEDURE; Surgeon: Jada Vargas MD; [place] [facility] [place]; Service: Colorectal CARDIAC CATHETERIZATION N/A 09/26/2022 Procedure: Coronary Angiogram; Surgeon: Tor Long MD; Location: [facility]; Service: Cardiovascular CARDIOVASCULAR STRESS TEST CHOL (more content not included)...[facility]10-28-2024 History and physical note* Nabila Lama MD - 09/02/2024 12:39 PM EDT [facility] [place] [facility] Patient Name: Radha Shafer : 1960 MR #: [id number] Admit Date: 09/02/2024 Physicians: No, Physician (Family); No ref. provider found (Referring) Radha Shafer is a 64 y.o. female patient of No, Physician with history of COPD chronic hypoxemic respiratory failure on 4 L of oxygen at home also history of hypertension myopathy with enzyme deficiency, hypothyroidism, GERD, hypertension, obesity and obstructive sleep apnea on CPAP presented to [facility] on 09/02/2024 with worsening shortness of [...] obstructive sleep apnea on CPAP presented to [facility] on 09/02/2024 with worsening shortness of [...] ALTEMEIER PROCEDURE; Surgeon: Jada Vargas MD; [place] [facility] [place]; Service: Colorectal CARDIAC CATHETERIZATION N/A 09/26/2022 Procedure: Coronary Angiogram; Surgeon: Tor Long MD; Location: [facility]; Service: Cardiovascular CARDIOVASCULAR STRESS TEST CHOLECYSTECTOMY COLONOSCOPY with biopsies COLONOSCOPY N/A 02/17/2022 Procedure: COLONOSCOPY; Surgeon: Jada Vargas MD; [place] [facility] [place]; Service: Colorectal EGD N/A 08/15/2022 Procedure: ESOPHAGOGASTRODUODENOSCOPY WITH BIOPSY; Surgeon: Tyshawn Santos MD; Location: [facility]; Service: Gastroenterology GALLBLADDER HC LEFT HEART CATH N/A 09/26/2022 Procedure: Left Heart Cath; Surgeon: Tor Long MD; Location: [facility]; Service: Cardiovascular HYSTERECTOMY JOINT REPLACEMENT Left knee ORTHOPEDIC SURGERY r wrist surgery, left ankle, right rotator cuff ROTATOR CUFF REPAIR Right SIGMOIDOSCOPY FLEXIBLE N/A 06/23/2022 Procedure: SIGMOIDOSCOPY FLEXIBLE WITH BIOPSY; Surgeon: Tyshawn Santos MD; Location: Endo; Service: Gastroenterology THYROIDECTOMY N/A 07/15/2015 Procedure: TOTAL THYROIDECTOMY; Surgeon: Lopez Alonso MD; Location: [facility]; Service: US ECHO TRANSTHORACIC FOLLOWUP [...] normal mood and affect documented in this [id number] Emergency department Note* Tram Perez RN - 09/02/2024 12:00 PM EDT Hourly rounding assessment completed on the patient. [x] Patient updated on plan of care [x] All comfort needs addressed [x] Patient updated on duration of visit All questions answered, patient denies further needs. Call light within reach. [id number] Emergency department Triage note* Tram Perez RN - 09/02/2024 11:23 AM EDT Pt from orthopedic office. Pt c/o SOB. Pt wears 4lpm PRN at home, presented to ED on RA. Pt was 77%on RA. Pt with non productive cough. Placed on 6lpm NC, O2 sat improved to 99%. Pt unable to speak in full sentences and tripoding d/t SOB [id number] Telephone encounter Note* Telephone Encounter - Raya Dutton MA - 03/06/2024 12:08 PM EDT Received refill request from [facility] for Levocarnitine. Last OV: 02/13/23 Last Labs: 02/13/23 Next OV: 06/03/24 Set up request for ePrescribe. [facility]05-01-2024 Miscellaneous Notes* Telephone Encounter - Raya Dutton MA - 03/06/2024 12:08 PM EDT Received refill request from [facility] for Levocarnitine. Last OV: 02/13/23 Last Labs: 02/13/23 Next OV: 06/03/24 Set up request for ePrescribe. documented in this [facility]Children[facility]24 Telephone encounter Note* Telephone Encounter - Cecille Johnson LPN - 01/29/2024 9:34 AM EDT Received refill request from [facility] for Dojolvi Last OV: 02/13/23 Last Labs: 02/13/23 Next OV: 02/12/24 Set up request for ePrescribe. [facility]03-25-2024 Miscellaneous Notes* Telephone Encounter - Cecille Johnson LPN - 01/29/2024 9:34 AM EDT Received refill request from [facility] for Dojolvi Last OV: 02/13/23 Last Labs: 02/13/23 Next OV: 02/12/24 Set up request for ePrescribe. documented in this [facility]12-12-2023 Telephone encounter Note* Telephone Encounter - Meliza Rust - 10/17/2023 8:08 AM EST Received fax from [facility] put in the metbolic box. [facility]12-12-2023 Miscellaneous Notes* Telephone Encounter - Meliza Rust - 10/17/2023 8:08 AM EST Received fax from [facility] put in the metbolic box. documented in this [facility]12-11-2023 History of Present illness Narrative* Rivas [...] PM EST [facility] [address]) [facility] [address] [facility] [id number] Radha Shafer is a 63 y.o. female [...] improve. Rivas Jules MD documented in this [id number] Miscellaneous Notes* Telephone Encounter - Jada Glez - 02/27/2023 2:27 PM EDT Called to schedule a FU No answer Left message and recall to schedule from documented in this encounterNatFulton [facility] Center'[facility] CenterVfdeckau70-59-6463 Telephone encounter Note* Telephone Encounter - Jada Glez - 02/27/2023 2:27 PM EDT Called to schedule a FU No answer Left message and recall to schedule from [facility]04-20-2023 Telephone encounter Note* Telephone Encounter - Elisabeth Matamoros MS, RD/LD - 02/23/2023 9:05 AM EDT Called Radha regarding her diet. She said she no longer had any questions for the dietitian. Encouraged her to call if she needed meal ideas or help with picking food. Gave her RD direct number as well. [facility]04-20-2023 Miscellaneous Notes* Telephone Encounter - Elisabeth Matamoros MS, RD/LD - 02/23/2023 9:05 AM EDT Called Radha regarding her diet. She said she no longer had any questions for the dietitian. Encouraged her to call if she needed meal ideas or help with picking food. Gave her RD direct number as well. documented in this encounterNationDayton [facility]01-31-2023 Telephone encounter Note* Telephone Encounter - Rocio Nickerson LPN - 12/06/2022 3:25 PM EST Called and spoke with Kevin at [employer] ([phone]), informed them of my conversation with the patient. Kevin requested we contact them back when the patient restarts the medication. [facility]01-31-2023 Miscellaneous Notes* Telephone Encounter - Rocio Nickerson LPN - 12/06/2022 3:25 PM EST Called and spoke with Kevin at [facility] [employer] [facility] ([phone]), informed them of my conversation with the [...] EST Received phone call from Selena at [facility]. Selena informed me that the patient had declined the refill request for Dojolivi because she was told by the provider to stop the medication due to diarrhea. Will contact the pharmacy with an update after speaking to the metabolic provider. Call back number [phone] documented in this encounterChildren's [facility] Rehabilitation01-31-2023 Telephone encounter Note* Telephone Encounter - Rocio [...] she restarts the medication, patient voiced understanding. [facility]01-31-2023 Telephone encounter Note* Telephone Encounter - Rocio Nickerson LPN - 12/06/2022 1:42 PM EST Received phone call from Selena at [facility]. Selena informed me that the patient had declined the refill request for Dojolivi because she was told by the provider to stop the medication due to diarrhea. Will contact the pharmacy with an update after speaking to the metabolic provider. Call back number [phone] [facility]01-30-2023 History of Present illness Narrative* Khadra Perdomo MA - 12/05/2022 10:17 AM EST Refill request for DOJOLVI. documented in this encounterChildren's [facility] for [facility]01-18-2023 Telephone encounter Note* Telephone Encounter - Jada Glez - 11/23/2022 4:04 PM EST Third attempt and sent patient mychart message to reschedule. No answer, and patient has not read message. Sending letter in the mail. [facility]01-18-2023 Miscellaneous Notes* Telephone Encounter - Jada Glez - 11/23/2022 4:04 PM EST Third attempt and sent patient mychart message to reschedule. No answer, and patient has not read message. Sending letter in the mail. documented in this encounterChildren's [facility] for [facility]10-25-2022 Telephone encounter Note* Telephone Encounter - Shakira Gerard MD - 08/30/2022 12:38 PM EDT Previously call from [facility] regarding patient not eating (when we were [...] nothing too concerning heart cabrera. Expressed that [place] in females are notlike the typical Mis [...] understanding. Will await call back next week. [facility] Work Phone: [phone] Miscellaneous Notes* Telephone Encounter - Shakira Gerard MD - 08/30/2022 12:38 PM EDT Previously call from [facility] regarding patient not eating (when we [...] nothing too concerning heart cabrera. Expressed that [place] in females are notlike the typical Mis [...] call back next week. documented in this encounterChildren's [facility] for Rehabilitation09-13-2022 History of Present illness Narrative* Debra Adamson, SOLDERER - 07/19/2022 2:57 PM EDT Radha Shafer [...] ALTEMEIER PROCEDURE; Surgeon: Jada Vargas MD; [place] [facility] [place]; Service: Colorectal CARDIOVASCULAR STRESS TEST CHOLECYSTECTOMY COLONOSCOPY with biopsies COLONOSCOPY N/A 02/17/2022 Procedure: COLONOSCOPY; Surgeon: Jada Vargas MD; Location: [facility]; Service: Colorectal GALLBLADDER HYSTERECTOMY JOINT REPLACEMENT Left knee ORTHOPEDIC SURGERY r wrist surgery, left ankle, right rotator cuff ROTATOR CUFF REPAIR Right SIGMOIDOSCOPY FLEXIBLE N/A 06/23/2022 Procedure: SIGMOIDOSCOPY FLEXIBLE WITH BIOPSY; Surgeon: Tyshawn Santos MD; Location: [facility]; Service: Gastroenterology THYROIDECTOMY N/A 07/15/2015 Procedure: TOTAL THYROIDECTOMY; Surgeon: Lopez Alonso MD; Location: [facility]; Service: US ECHO TRANSTHORACIC FOLLOWUP LIMITED WRIST SURGERY Right Social History: Social History Socioeconomic History Marital status: Occupational History 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 16 g 3 zzmlogsjfpk-nuivcmzdz-dvkruyrm (Trelegy Ellipta) 200-62.5-25 mcg DsDv Inhale 1 [...] scheduled for EGD with Dr. Santos at [facility] on 08/15/2022 at 12:00PM. Debra Adamson CNP documented in this [id number] History of Present illness Narrative* Estrada Garcia MD - 07/08/2022 11:45 AM EDT [facility] [facility] [address] [facility] [address] Name: Radah Shafer Age: 62 y.o. : 1960 Today's [...] was has not followed with her old robotics technologist so has been going without any inhalers. [...] to episodic myopathy. She is treated at [facility]. 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 Obesity On home oxygen therapy 2L via NC, PRN with walking, activity Scoliosis 03/2022 Sleep apnea noncompliant with CPAP; uses home oxygen Sleep apnea, obstructive Past Surgical History: Procedure Laterality Date ALTEMEIER PROCEDURE N/A 03/30/2022 Procedure: ALTEMEIER PROCEDURE; Surgeon: Jada Vargas MD; [place] [facility] [place]; Service: Colorectal CARDIOVASCULAR STRESS TEST CHOLECYSTECTOMY COLONOSCOPY with biopsies COLONOSCOPY N/A 02/17/2022 Procedure: COLONOSCOPY; Surgeon: Jada Vargas MD; [place] [facility] [place]; Service: Colorectal GALLBLADDER HYSTERECTOMY JOINT REPLACEMENT Left knee ORTHOPEDIC SURGERY r wrist surgery, left ankle, right rotator cuff ROTATOR CUFF REPAIR Right SIGMOIDOSCOPY FLEXIBLE N/A 06/23/2022 Procedure: SIGMOIDOSCOPY FLEXIBLE WITH BIOPSY; Surgeon: Tyshawn Santos MD; Location: Endo; Service: Gastroenterology THYROIDECTOMY N/A 07/15/2015 Procedure: TOTAL THYROIDECTOMY; Surgeon: Lopez Alonso MD; Location: [facility]; Service: US ECHO TRANSTHORACIC FOLLOWUP [...] Socioeconomic History Marital status: Occupational History 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 mzqeipteuvr-aumqwjrmt-oviatzte (Trelegy Ellipta) 200-62.5-25 mcg DsDv Inhale 1 [...] oz) SpO2 97% BMI 39.07 kg/m from Vitals Flowsheet Date/Time Weight 12/30/21 1035 110.4 [...] Personally reviewed and agree with report. CXR 06/25/22 IMPRESSION: No acute cardiopulmonary abnormality. Personally reviewed [...] pack year former smoker who quit in 2013 with COPD who presents for follow up [...] weeks Estrada Garcia MD documented in this [id number] Hospital Discharge instructions * Discharge Instr - Other Orders* Angela Davila RN - 06/29/2022 11:01 AM EDT - The brush sander's office will be contacting you after you leave to schedule a follow up appointment. * Attachments The following attachments cannot be sent through Care Everywhere. * Diarrhea (Samoan) documented in this [id number] Hospital course Narrative* Leodan Geronimo MD - 06/29/2022 10:39 AM EDT Images from the original note were not included. [facility] [place] Radha Shafer Admitted: 06/21/2022 Discharge Date: 06/29/22 PCP Handoff Recommended Outpatient Testing Follow with GI for EGD Results Pending At Discharge None Clinical Summary Radha Shafer is a 62 y.o. female patient of Jonathan Rutherford CNP with history of chronic kidney disease stage III, hypertension, rectal prolapse s/p surgery at [place] on March 2022, anemia, thyroid cancer s/p [...] Trelegy Ellipta 200-62.5-25 mcg Dsdv Generic drug: tgvrgeguhcw-efuygceke-lffhkzbw Inhale 1 (one) Inhalation daily . Quantity: 60 each * There are duplicate medications prescribed to the patient Stopped Medications lisinopriL 40 MG tablet Commonly known as: PRINIVIL,ZESTRIL metFORMIN 500 MG tablet Commonly known as: [...] on 06/29/22, 10:39 AM documented in this [id number] History of Present illness Narrative* Leodan Geronimo MD - 06/28/2022 11:46 AM EDT [facility] [place] Assessment and Plan Radha Shafer is a 62 y.o. female patient of Jonathan Rutherford CNP with history of chronic kidney disease stage III, hypertension, rectal prolapse s/p surgery at [place] on March 2022, anemia, thyroid cancer s/p [...] on chronic kidney disease stage III-improving KRISTIN mervin 2/2 Rhabdomyolitis Hyperkalemia secondary to KRISTIN Creatinine [...] Microbiology, Medications, and Transcriptions * Dafne Mendez, RASHEED - 06/28/2022 10:32 AM EDT Nutrition Care [...] clinical information: rectal prolapse s/p surgery at [place] on March 2022 who presented to the [...] to follow as needed., while in-house. Office [phone] * Leodan Geronimo MD - 06/27/2022 11:43 AM EDT [facility] [place]GR[place] Assessment and Plan Radha Shafer is a 62 y.o. female patient of Jonathan Rutherford CNP with history of chronic kidney disease stage III, hypertension, rectal prolapse s/p surgery at [place] on March 2022, anemia, thyroid cancer s/p [...] Hale MD - 06/26/2022 1:40 PM EDT [facility] [place]GR[place] Assessment and Plan Radha Shafer is a 62 y.o. female patient of Jonathan Rutherford CNP with history of chronic kidney disease stage III, hypertension, rectal prolapse s/p surgery at [place] on March 2022, anemia, thyroid cancer s/p [...] on chronic kidney disease stage III-improving KRISTIN mervin 2/2 Rhabdomyolitis Hyperkalemia secondary to KRISTIN Creatinine [...] Hale MD - 06/25/2022 1:52 PM EDT [facility] [place]GRESS NOTE Assessment and Plan Radha Shafer is a 62 y.o. female patient of Jonathan Rutherford CNP with history of chronic kidney disease stage III, hypertension, rectal prolapse s/p surgery at [place] on March 2022, anemia, thyroid cancer s/p [...] Hale MD - 06/24/2022 5:30 PM EDT [facility] [place]GRESS NOTE Assessment and Plan Radha Shafer is a 62 y.o. female patient of Jonathan Rutherford CNP with history of chronic kidney disease stage III, hypertension, rectal prolapse s/p surgery at [place] on March 2022, anemia, thyroid cancer s/p [...] NOTE Patient Name: Radha Shafer MR #: [id number] Assessment/Plan: 62 y.o. female with past medical [...] Loo MD - 06/23/2022 2:06 PM EDT [facility] [place]GRESS [place] Assessment and Plan Radha Shafer is a 62 y.o. female patient of Jonathan Rutherford CNP with history of COPD, chronic kidney disease stage III, hypertension, rectal prolapse s/p surgery at [place] on March 2022 who presented to the [...] Louis CNP - 06/22/2022 11:41 AM EDT [facility] [place]GRESS NOTE Assessment and Plan Radha Shafer is a 62 y.o. female patient of Jonathan Rutherford CNP with history of COPD, chronic kidney disease stage III, hypertension, rectal prolapse s/p surgery at [place] on March 2022 who presented to the [...] III, hypertension, rectal prolapse s/p surgery at [place] on March 2022 who presented to the [...] Microbiology, Medications, and Transcriptions documented in this [id number] Note* Sign Off Note - Nessa Jay CNP - 06/28/2022 10:23 AM EDT Gastroenterology Inpatient Follow-up 06/28/2022 Nessa Jay CNP [facility] Patient: Radha Shafer Date of : [...] AM: Laboratory, Pathology, Radiology, Medications, and Transcriptions [facility] Work Phone: 1(500) 331-970008-23-2022 Miscellaneous Notes* Sign Off Note - Nessa Jay CNP - 06/28/2022 10:23 AM EDT Gastroenterology Inpatient Follow-up 06/28/2022 Nessa Jay CNP [facility] Patient: Radha Shafer Date of : [...] Thank you, Peace Zaragoza RN, BSN Clinical Wastewater Treatment Operator [phone] After business hours you may contact Za Pedroabhilash at [phone] (Weekdays until 10 PM and weekends 8 [...] Thank you, Peace Zaragoza RN, BSN Clinical Wastewater Treatment Operator [phone] After business hours you may contact Za Lopes at [phone] (Weekdays until 10pm) * Brief Op Note [...] Thank you, Peace Zaragoza RN, BSN Clinical Wastewater Treatment Operator [phone] After business hours you may contact Za Lopes at [phone] (Weekdays until 10 PM and weekends 8 [...] Thank you, Peace Zaragoza RN, BSN Clinical Wastewater Treatment Operator [phone] After business hours you may contact Za Valentine at [phone] (Weekdays until 10pm) * Plan of Care [...] PM EDT POC initiated documented in this [id number] Note* Plan of Care - Lawanda Baker RN - 06/27/2022 5:33 PM EDT POC updated and reviewed. IVF started. POC continues. [place] [id number] Note* Plan of Care - Angela Davila [...] discharge plan and instructions Outcome: Partially Met [place] [id number] Note* Plan of Care - Angela Davila [...] discharge plan and instructions Outcome: Partially Met [place] [id number] Note* CDI Query - Sheri Hale MD [...] Thank you, Peace Zaragoza RN, BSN Clinical Wastewater Treatment Operator [phone] After business hours you may contact Za Lopes at [phone] (Weekdays until 10 PM and weekends 8 AM - 10 PM) [id number] Note* CDI Query - Sheri Hale MD [...] Thank you, Peace Zaragoza RN, BSN Clinical Wastewater Treatment Operator [phone] After business hours you may contact Za Lopes at [phone] (Weekdays until 10pm) [id number] Nurse Note* Lois Simmons RN - 06/23/2022 12:56 PM EDT Report called to primary nurse Josue, patient to return to room 3. [id number] Nurse Note* Lois Simmons RN - 06/23/2022 12:56 PM EDT Report called to primary nurse Josue, patient to return to room 3. * Susy Shelton RN - 06/23/2022 11:47 AM EDT Pt received Tap water enema by primary nurse. States still not clear. Pt is not receiving any anesthesia today for flex sig documented in this [id number] Note* Brief Op Note - Tyshawn Santos MD - 06/23/2022 12:49 PM EDT Sigmoidoscopy revealed mild proctitis sigmoid colon was normal biopsies were taken from rectum and sigmoid colon. Proctitis could be secondary to recent surgery for rectal prolapse. [facility] Work Phone: 1(659) 267-859108-18-2022 Nurse Note* Susy Shelton RN - 06/23/2022 11:47 AM EDT Pt received Tap water enema by primary nurse. States still not clear. Pt is not receiving any anesthesia today for flex sig [id number] Consult note* Debra Adamson CNP - 06/23/2022 9:40 AM EDTAssociated Order(s): IP CONSULT TO GASTROENTEROLOGY Gastroenterology Inpatient Consult 06/23/2022 Debra Adamson CNP [facility] Patient: Radha Shafer Date of : [...] ALTEMEIER PROCEDURE; Surgeon: Jada Vargas MD; [place] [facility] [place]; Service: Colorectal CARDIOVASCULAR STRESS TEST CHOLECYSTECTOMY COLONOSCOPY with biopsies COLONOSCOPY N/A 02/17/2022 Procedure: COLONOSCOPY; Surgeon: Jada Vargas MD; [place] [facility] [place]; Service: Colorectal GALLBLADDER HYSTERECTOMY JOINT REPLACEMENT Left knee ORTHOPEDIC SURGERY r wrist surgery, left ankle, right rotator cuff ROTATOR CUFF REPAIR Right THYROIDECTOMY N/A 07/15/2015 Procedure: TOTAL THYROIDECTOMY; Surgeon: Lopez Alonso MD; Location: [facility]; Service: US ECHO TRANSTHORACIC FOLLOWUP [...] (two) sprays into each nostril daily . iofbylegbqf-ipvvcdqgq-erkdlblu (Trelegy Ellipta) 200-62.5-25 mcg DsDv, Inhale 1 [...] interviewed and examined the patient. I reviewed Debra nurse practitioner consultation report and agree with [...] take biopsies to rule out microcytic colitis. [id number] Consult note* Debra Adamson CNP - 06/23/2022 9:40 AM EDTAssociated Order(s): IP CONSULT TO GASTROENTEROLOGY Gastroenterology Inpatient Consult 06/23/2022 Debra Adamson CNP [facility] Patient: Radha Shafer Date of : [...] ALTEMEIER PROCEDURE; Surgeon: Jada Vargas MD; [place] [facility] [place]; Service: Colorectal CARDIOVASCULAR STRESS TEST CHOLECYSTECTOMY COLONOSCOPY with biopsies COLONOSCOPY N/A 02/17/2022 Procedure: COLONOSCOPY; Surgeon: Jada Vargas MD; [place] [facility] [place]; Service: Colorectal GALLBLADDER HYSTERECTOMY JOINT REPLACEMENT Left knee ORTHOPEDIC SURGERY r wrist surgery, left ankle, right rotator cuff ROTATOR CUFF REPAIR Right THYROIDECTOMY N/A 07/15/2015 Procedure: TOTAL THYROIDECTOMY; Surgeon: Lopez Alonso MD; Location: [facility]; Service: US ECHO TRANSTHORACIC FOLLOWUP [...] (two) sprays into each nostril daily . lsemvywwjac-nzajmcagl-yfqvwljt (Trelegy Ellipta) 200-62.5-25 mcg DsDv, Inhale 1 [...] interviewed and examined the patient. I reviewed [facility] nurse practitioner consultation report and agree [...] rule out microcytic colitis. documented in this [id number] Note* CDI Query - Ryan Loo MD [...] Thank you, Peace Zaragoza RN, BSN Clinical Wastewater Treatment Operator [phone] After business hours you may contact Za Lopes at [phone] (Weekdays until 10 PM and weekends 8 AM - 10 PM) [id number] Note* CDI Query - Ryan Loo MD [...] Thank you, Peace Zaragoza RN, BSN Clinical Wastewater Treatment Operator [phone] After business hours you may contact Za Lopes at [phone] (Weekdays until 10pm) [id number] Note* Plan of Care - Mariano Green [...] discharge plan and instructions Outcome: Partially Met [id number] Note* Plan of Care - Olga Russell MD - 06/21/2022 8:22 PM EDT Stool PCR still pending. Will not leave the patient uncovered overnight without antibiotics, will start the patient empirically on ciprofloxacin, ceftriaxone (allergy to penicillins) and p.o. vancomycin, de-escalate antibiotics as indicated when stool PCR finally resulted [id number] Note* Plan of Care - Mariano Green [...] discharge plan and instructions Outcome: Partially Met [id number] Note* Plan of Care - Cheryl Martini RN - 06/21/2022 5:05 PM EDT POC initiated [id number] Emergency department Note* Duke Nath RN - 06/21/2022 4:47 PM EDT Pt had a small black soft BM. Pt cleaned and depends changed [id number] Emergency department Note* Duke Nath RN - 06/21/2022 4:47 PM EDT Pt had a small black soft BM. Pt cleaned and depends changed * Duke Nath RN - 06/21/2022 4:36 PM EDT Report called to the floor * Jaiden Bagley MD - 06/21/2022 11:10 AM EDTAssociated Order(s): Critical Care Images from the original note were not included. [facility] EM[facility]Y [facility] PCP - Jonathan Rutherford [...] follow-up with a local GI services in [place]. Patient did have a couple of episodes [...] 2. Hepatic steatosis. 3. Extensive aortic calcification. Fieldoo/Omn[employer] Workstation ID: [id number] XR Chest 1 View Preliminary Result No evident acute process in the chest. Fieldoo/lab Workstation ID: [id number] Medications Ordered/Given During ED [...] ALTEMEIER PROCEDURE; Surgeon: Jada Vargas MD; [place] [facility] [place]; Service: Colorectal CARDIOVASCULAR STRESS TEST CHOLECYSTECTOMY COLONOSCOPY with biopsies COLONOSCOPY N/A 02/17/2022 Procedure: COLONOSCOPY; Surgeon: Jada Vargas MD; [place] [facility] [place]; Service: Colorectal GALLBLADDER HYSTERECTOMY JOINT REPLACEMENT Left knee ORTHOPEDIC SURGERY r wrist surgery, left ankle, right rotator cuff ROTATOR CUFF REPAIR Right THYROIDECTOMY N/A 07/15/2015 Procedure: TOTAL THYROIDECTOMY; Surgeon: Lopez Alonso MD; Location: [facility]; Service: US ECHO TRANSTHORACIC FOLLOWUP [...] Socioeconomic History Marital status: Occupational History 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 YEDILYXQHQZ-FYQTHCMJG-WVTVWIXI (TRELEGY ELLIPTA) 200-62.5-25 MCG DSDV Inhale 1 [...] arrival: Ambulance Comments: [place] documented in this [id number] Emergency department Note* Duke Nath RN - 06/21/2022 4:36 PM EDT Report called to the floor [id number] History and physical note* Olga Russell MD - 06/21/2022 2:37 PM EDT [facility] [place]YSICAL Patient Name: Radha Shafer : 1960 MR #: [id number] Admit Date: 06/21/2022 Physicians: Jonathan Rutherford CNP (Family); No ref. provider found (Referring) Radha Shafer is a 62 y.o. female patient of Jonathan Rutherford CNP with history of COPD, chronic kidney disease stage III, hypertension, rectal prolapse s/p surgery at [place] on March 2022 who presented to the [...] III, hypertension, rectal prolapse s/p surgery at [place] on March 2022 who presented to the [...] ALTEMEIER PROCEDURE; Surgeon: Jada Vargas MD; [place] [facility] [place]; Service: Colorectal CARDIOVASCULAR STRESS TEST CHOLECYSTECTOMY COLONOSCOPY with biopsies COLONOSCOPY N/A 02/17/2022 Procedure: COLONOSCOPY; Surgeon: Jada Vargas MD; [place] [facility] [place]; Service: Colorectal GALLBLADDER HYSTERECTOMY JOINT REPLACEMENT Left knee ORTHOPEDIC SURGERY r wrist surgery, left ankle, right rotator cuff ROTATOR CUFF REPAIR Right THYROIDECTOMY N/A 07/15/2015 Procedure: TOTAL THYROIDECTOMY; Surgeon: Lopez Alonso MD; Location: [facility]; Service: US ECHO TRANSTHORACIC FOLLOWUP [...] 06/21/22 2:49 PM Medications 06/21/22 2:49 PM [id number] History and physical note* Olga Russell MD - 06/21/2022 2:37 PM EDT [facility] [place] [facility] [place] Patient Name: Radha Shafer : 1960 MR #: [id number] Admit Date: 06/21/2022 Physicians: Jonathan Rutherford CNP (Family); No ref. provider found (Referring) Radha Shafer is a 62 y.o. female patient of Jonathan Rutherford CNP with history of COPD, chronic kidney disease stage III, hypertension, rectal prolapse s/p surgery at [place] on March 2022 who presented to the [...] III, hypertension, rectal prolapse s/p surgery at [place] on March 2022 who presented to the [...] ALTEMEIER PROCEDURE; Surgeon: Jada Vargas MD; [place] [facility] [place]; Service: Colorectal CARDIOVASCULAR STRESS TEST CHOLECYSTECTOMY COLONOSCOPY with biopsies COLONOSCOPY N/A 02/17/2022 Procedure: COLONOSCOPY; Surgeon: Jada Vargas MD; [place] [facility] [place]; Service: Colorectal GALLBLADDER HYSTERECTOMY JOINT REPLACEMENT Left knee ORTHOPEDIC SURGERY r wrist surgery, left ankle, right rotator cuff ROTATOR CUFF REPAIR Right THYROIDECTOMY N/A 07/15/2015 Procedure: TOTAL THYROIDECTOMY; Surgeon: Lopez Alosno MD; Location: [facility]; Service: US ECHO TRANSTHORACIC FOLLOWUP [...] Medications 06/21/22 2:49 PM documented in this [id number] Physician Emergency department Note* Jaiden Bagley MD - 06/21/2022 11:10 AM EDTAssociated Order(s): Critical Care Images from the original note were not included. [facility] PCP - Jonathan Rutherford [...] follow-up with a local GI services in [place]. Patient did have a couple of episodes [...] 2. Hepatic steatosis. 3. Extensive aortic calcification. [employer] Workstation ID: [id number] XR Chest 1 View Preliminary Result No evident acute process in the chest. JMK/lab Workstation ID: [id number] Medications Ordered/Given During ED Visit Medications sodium chloride 0.9% (NS) (100 mL/hr Intravenous New Bag 8/16/22 1135) sodium chloride (PF) (NS) flush 5 mL (has no administration in time range) And sodium chloride (PF) (NS) flush 5 mL (5 mL Intravenous Not Given 06/21/221404) And sodium chloride 0.9% (NS) (has no administration in time range) sodium chloride 0.9% (NS) (100 mL/hr Intravenous Not Given 06/21/22 140) acetaminophen (TYLENOL) tablet 650 mg (has no administration in time range) sodium chloride 0.9% (NS) bolus 500 mL (0 mL Intravenous Stopped 06/21/221134) ondansetron (ZOFRAN) injection 4 mg (4 mg Intravenous Given 06/21/221134) morphine syringe 4 mg (4 mg Intravenous Given 06/21/221135) insulin regular (HumuLIN R, NovoLIN R) injection 8 Units (8 Units Intravenous Given 06/21/221405) dextrose (D10W) 10% bolus 250 mL (250 mL Intravenous New Bag 06/21/221406) sodium bicarbonate 1 mEq/mL (8.4 %) injection [...] ALTEMEIER PROCEDURE; Surgeon: Jada Vargas MD; [place] [facility] [place]; Service: Colorectal CARDIOVASCULAR STRESS TEST CHOLECYSTECTOMY COLONOSCOPY with biopsies COLONOSCOPY N/A 02/17/2022 Procedure: COLONOSCOPY; Surgeon: Jada Vargas MD; [place] [facility] [place]; Service: Colorectal GALLBLADDER HYSTERECTOMY JOINT REPLACEMENT Left knee ORTHOPEDIC SURGERY r wrist surgery, left ankle, right rotator cuff ROTATOR CUFF REPAIR Right THYROIDECTOMY N/A 07/15/2015 Procedure: TOTAL THYROIDECTOMY; Surgeon: Lopez Alonso MD; Location: [facility]; Service: US ECHO TRANSTHORACIC FOLLOWUP [...] Socioeconomic History Marital status: Occupational History 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 MQQNKIEGDWE-EXUDQYAEM-DHUMOLJM (TRELEGY ELLIPTA) 200-62.5-25 MCG DSDV Inhale 1 [...] medications on file Jaiden Bagley MD 06/21/22 [address] [facility] Work Phone: 1(923) 159-197808-16-2022 Emergency department Triage note* Leandro Montano II, RN - 06/21/2022 10:53 AM EDT Pt to ED with c/c of blood in stool and diarrhea. PT feels weak and nauseous. PT noticed blood in stool last night. PT reports having appointment with PCP tomorrow. [id number] Emergency department Note* Christal Jon RN - 06/21/2022 10:53 AM EDT Bed: 23 Expected date: 06/21/22 Expected time: 10:40 AM Means of arrival: Ambulance Comments: [place] [id number] Evaluation note* Subjective & Objective - Serina [...] Psych: calm, cooperative, follows commands, normal affect [id number] History of Present illness Narrative* Serina Meyers [...] recorded. Serina Meyers MD, PGY6 Colorectal Fellow [phone] 04/04/2022 Associated attestation - Jada Vargas MD - 04/04/2022 8:44 AM EDT The pateint was seen and examined by me. Full note per resident. I personally reviewed the following: Laboratory 04/04/22 8:44 AM I agree with the following plan: Ok for dc. Fu in 2-3 weeks. Jada Vargas MD * Kings Allen MD - 04/03/2022 2:41 PM EDT [facility] [place] -progress note: Patient Name: Radha Shafer MR #: [id number] ASSESSMENT / PLAN: Radha Shafer is a [...] Assessmen Kings Allen MD [facility] Office: [phone] * Serina Meyers MD - 04/03/2022 8:03 [...] recorded. Serina Meyers MD, PGY6 Colorectal Fellow [phone] 04/03/2022 Associated attestation - Braveman, Jada Li MD - 04/03/2022 8:55 AM EDT The pateint was seen and examined by me. Full note per resident. I personally reviewed the following: Laboratory 04/03/22 8:54 AM I agree with the following plan: Voiding trial before dc tomorrow Low fiber diet Jada Vargas MD * Grant Archibald, DO - 04/03/2022 7:50 AM EDT [facility] [place] Assessment and Plan Radha Shafer is a 61 y.o. female patient of Jonathan Rutherford CNP with history of CPT2 deficiency, COPD, CKD, type 2 diabetes, hypothyroidism, HTN, FELISA presented on 03/30/2022 with rectal prolapse. [facility] consulted by Jada Vargas,* for management of [...] perspective, continue home medications at prescribed doses. [facility] will sign off, please call with questions. [...] recorded. Serina Meyers MD, PGY6 Colorectal Fellow [phone] 04/02/2022 Associated attestation - Jada Vargas MD - 04/02/2022 9:30 AM EDT The pateint was seen and examined by me. Full note per resident. I personally reviewed the following: Laboratory 04/02/22 9:30 AM I agree with the following plan: Consult urology D/w [facility] any unresolved medical issues before dc Jada Vargas MD * Grant Archibald, - 04/02/2022 8:37 AM EDT [facility] [place] Assessment and Plan Radha Shafer is a 61 y.o. female patient of Jonathan Rutherford CNP with history of CPT2 deficiency, COPD, CKD, type 2 diabetes, hypothyroidism, HTN, FELISA presented on 03/30/2022 with rectal prolapse. [facility] consulted by Jada Vargas,* for management of [...] Archibald DO - 04/01/2022 10:18 AM EDT [facility] [place] Assessment and Plan Radha Shafer is a 61 y.o. female patient of Jonathan Rutherford CNP with history of CPT2 deficiency, COPD, CKD, type 2 diabetes, hypothyroidism, HTN, FELISA presented on 03/30/2022 with rectal prolapse. [facility] consulted by Jada Vargas,* for management of [...] 182/94 Pulse: 87 91 84 Resp: (!) 21 15 14 Temp: 98.5 F (36.9 C) [...] TRACY tiotropium bromide 2 puff Inhalation Daily triheptanoin [...] recorded. Serina Meyers MD, PGY6 Colorectal Fellow [phone] 04/01/2022 Associated attestation - Herve Abdullahi DO [...] the note to reflect my direct input. Sofi Diaz for retention C/w liquid diet Herve [...] -admit to SDU post op -home O2 -[employer] SPECIALIST for now, discuss DC later today -CLD [...] recorded. Serina Meyers MD, PGY6 Colorectal Fellow [phone] 03/31/2022 Associated attestation - Jada Vargas MD - 03/31/2022 9:50 AM EDT The pateint was seen and examined by me. Full note per resident. I personally reviewed the following: Laboratory 03/31/22 9:44 AM I agree with the following plan: Clear liquid diet. Consult [facility] [place] management. Await bowel function. Jada Vargas MD documented in this [id number] Miscellaneous Notes* Subjective & Objective - Serina [...] - 03/30/2022 3:13 PM EDT RADHA SHAFER [facility] [id number] 1960 DATE 03/30/2022 OPERATIVE REPORT SURGEON JADA VARGAS MD DIRECTOR CALL CENTER SALES SERINA MEYERS MD, RESIDENT PREOPERATIVE DIAGNOSIS Full-thickness [...] This was done circumferentially. We used a [place] retractor for retraction and this was released [...] the case. MD Krzysztof LEMON 03/30/2022 14:46 [id number] T 03/30/2022 15:08 JMB/MODL * Brief Op Note - Serina Meyers MD - 03/30/2022 12:23 PM EDT Brief Post Operative Note Patient Name: Radha Shafer : 1960 (61 y.o.) Date of Service: 03/30/2022 CSN: [id number] Procedure(s): ALTEMEIER PROCEDURE Pre-Operative Diagnoses: * Rectal prolapse [K62.3] Post-Operative Diagnoses: * Rectal prolapse [K62.3] Surgeon(s) and Role: * Jada Vargas MD - Primary Luigi pgy6 Anesthesiologist: Alexandro Rajput MD MUSIC SPECIALIST: Gen Hartmann CRNA Senior Search Marketing Analyst: Janice Vergara RN Senior Search Marketing Analyst Relief: Rosina Cazares RN Scrub Person Relief: [...] MD 03/30/2022 2:50 PM documented in this [id number] Consult note* Kings Allen MD - 04/02/2022 [...] questions or to discuss. Kings Allen MD [facility] Phys[facility] Office: REASON FOR CONSULT: Acute [...] ALTEMEIER PROCEDURE; Surgeon: Jada Vargas MD; [place] [facility] [place]; Service: Colorectal CARDIOVASCULAR STRESS TEST CHOLECYSTECTOMY COLONOSCOPY with biopsies COLONOSCOPY N/A 02/17/2022 Procedure: COLONOSCOPY; Surgeon: Jada Vargas MD; [place] [facility] [place]; Service: Colorectal GALLBLADDER HYSTERECTOMY JOINT REPLACEMENT Left knee ORTHOPEDIC SURGERY r wrist surgery, left ankle, right rotator cuff ROTATOR CUFF REPAIR Right THYROIDECTOMY N/A 07/15/2015 Procedure: TOTAL THYROIDECTOMY; Surgeon: Lopez Alonso MD; Location: [facility]; Service: US ECHO TRANSTHORACIC FOLLOWUP LIMITED WRIST SURGERY Right Social History Socioeconomic History Marital status: Occupational History Occupation: [employer] 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 Tobacco Use Smoking status: [...] TRACY, Tatiana Butt PA-C, 1,300 mg at 05/28/22 1430 albuterol inhaler 2 puff, 2 puff, Inhalation, Q6H PRN, Tatiana Butt PA-C amLODIPine (NORVASC) tablet 10 mg, 10 mg, Oral, Daily, Tatiana Butt PA-C, 10 mg at 04/02/22 0812 aspirin chewable tablet 81 mg, 81 mg, Oral, Daily, Tatiana Butt PA-C, 81 mg at 04/02/22 0900 budesonide-formoteroL (SYMBICORT) 80-4.5 mcg/actuation inhaler 2 puff, 2 puff, Inhalation, BID, Wendy Mcclure, Fritz, 2 puff at 04/02/22 0900 buPROPion (WELLBUTRIN) [...] 0-15 Units, Subcutaneous, at bedtime, Grant Archibald, DO insulin lispro (AdmeLOG,HumaLOG) injection 0-30 Units, [...] 18 mL, Oral, 4x daily, Andree Villasenor [facility],PharmD, 18 mL at 04/02/22 1241 [...] Relevant Orders Tissue Exam Kings Allen MD [facility] Office: [phone] [id number] Consult note* Kings Allen MD - 04/02/2022 3:55 PM EDT Associated Order(s): IP CONSULT TO UROLOGY Images from the original note were not included. [facility] [place] - CONSULT NOTE: Patient Name: Radha Shafer [...] questions or to discuss. Kings Allen MD [facility] Office: REASON FOR CONSULT: Acute [...] ALTEMEIER PROCEDURE; Surgeon: Jada Vargas MD; [place] [facility] [place]; Service: Colorectal CARDIOVASCULAR STRESS TEST CHOLECYSTECTOMY COLONOSCOPY with biopsies COLONOSCOPY N/A 02/17/2022 Procedure: COLONOSCOPY; Surgeon: Jada Vargas MD; [place] [facility] [place]; Service: Colorectal GALLBLADDER HYSTERECTOMY JOINT REPLACEMENT Left knee ORTHOPEDIC SURGERY r wrist surgery, left ankle, right rotator cuff ROTATOR CUFF REPAIR Right THYROIDECTOMY N/A 07/15/2015 Procedure: TOTAL THYROIDECTOMY; Surgeon: Lopez Alonso MD; Location: [facility]; Service: US ECHO TRANSTHORACIC FOLLOWUP LIMITED WRIST SURGERY Right Social History Socioeconomic History Marital status: Occupational History 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 Tobacco Use Smoking status: [...] inhaler 2 puff, 2 puff, Inhalation, BID, Wnedy Mcclure, PharmD, 2 puff at 04/02/22 0900 [...] mL, Intravenous, Q8H TRACY, 5 mL at 04/01/220 AND sodium chloride 0.9% (NS), 0-150 mL/hr, [...] 18 mL, Oral, 4x daily, Andree Villasenor [facility],PharmD, 18 mL at 04/02/22 1241 [...] Exam Kings Allen MD [facility] Office: [phone] * Grant Hollis Cristela, DO - 03/31/2022 7:59 AM EDTAssociated Order(s): IP CONSULT TO HOSPITALIST [facility] CONS[place] Patient Name: Radha Shafer : 1960 MR #: [id number] Admit Date: 03/30/2022 Physicians: Jonathan Rutherford CNP (Family); No ref. provider found (Referring) Radha Shafer is a 61 y.o. female patient of Jonathan Rutherford CNP with history of CPT2 deficiency, COPD, CKD, type 2 diabetes, hypothyroidism, HTN, FELISA presented on 03/30/2022 with rectal prolapse. [facility] consulted by Jada Vargas,* for management of [...] Procedure: COLONOSCOPY; Surgeon: Jada Vargas MD; [place] [facility] [place]; Service: Colorectal GALLBLADDER HYSTERECTOMY JOINT REPLACEMENT Left knee ORTHOPEDIC SURGERY r wrist surgery, left ankle, right rotator cuff ROTATOR CUFF REPAIR Right THYROIDECTOMY N/A 07/15/2015 Procedure: TOTAL THYROIDECTOMY; Surgeon: Lopez Alonso MD; Location: [facility]; Service: US ECHO TRANSTHORACIC FOLLOWUP [...] Transcriptions 03/31/22 12:08 PM documented in this [id number] Note* Quick Note - Caitlyn Mishra PA-C - 03/31/2022 6:01 PM EDT Notified by RN of patient unable to void after diaz removal, bladder scan with >500 mL. Order placed for PRN bladder scans with POUR protocol. Continue to monitor. Caitlyn Mishra PA-C Hospital Medicine Service [facility] Work Phone: [phone] Evaluation + Plan note* Assessment & Plan Note - eSrina Meyers MD - 03/31/2022 8:00 AM EDTAssociated Problem(s): Rectal prolapse A: 61 yo F w/ hx CPT2 deficiency, CKD IV, COPD on home O2, HTN, EFLISA, morbid obesity, and rectal prolapse here for elective repair POD 5 from [place] procedure with Dr. Vargas with urinary retention resolved P: -admit to SDU post op -UA normal -urology consult-appreciate recs; f/u outpt -home O2 -PRN pain medications -regular low fiber diet -heparin DVT ppx -home meds -daily labs -PT/OT -medicine consult -PRNs for BP -DC flomax -DC today [id number] Consult note* Grant Archibald DO - 03/31/2022 7:59 AM EDTAssociated Order(s): IP CONSULT TO HOSPITALIST [facility] CONS[place] Patient Name: Radha Shafer : 1960 MR #: [id number] Admit Date: 03/30/2022 Physicians: Jonathan Rutherford CNP (Family); No ref. provider found (Referring) Radha Shafer is a 61 y.o. female patient of Jonathan L. Hellinger, SOLDERER with history of CPT2 deficiency, COPD, CKD, type 2 diabetes, hypothyroidism, HTN, FELISA presented on 03/30/2022 with rectal prolapse. [facility] consulted by Jada Vargas,* for management of [...] Procedure: COLONOSCOPY; Surgeon: Jada Vargas MD; [place] [facility] [place]; Service: Colorectal GALLBLADDER HYSTERECTOMY JOINT REPLACEMENT Left knee ORTHOPEDIC SURGERY r wrist surgery, left ankle, right rotator cuff ROTATOR CUFF REPAIR Right THYROIDECTOMY N/A 07/15/2015 Procedure: TOTAL THYROIDECTOMY; Surgeon: Lopez Alonso MD; Location: [facility]; Service: US ECHO TRANSTHORACIC FOLLOWUP [...] 03/31/22 12:08 PM Transcriptions 03/31/22 12:08 PM [id number] Note* Quick Note - Delonte Roa RN - 03/30/2022 10:[address] Meyres of [facility] to notify her of patient's elevated BP and patient complaint ofchest pain. Patient sates that chest pain has been going on past few days. This RN obtained an EKG which showed NSR. Physician ordered labetalol and troponin. [id number] Note* Op Note - Jada Vargas MD - 03/30/2022 3:13 PM EDT RADHA [facility]ER [facility] [id number] 1960 DATE 03/30/2022 OPERATIVE REPORT SURGEON JADA VARGAS MD DIRECTOR CALL CENTER SALES SERINA MEEYRS MD, RESIDENT PREOPERATIVE DIAGNOSIS Full-thickness rectal prolapse. [...] This was done circumferentially. We used a [place] retractor for retraction and this was released [...] case. JADA VARGAS MD D 03/30/2022 14:46 [id number] T 03/30/2022 15:08 ARON/CECI [id number] Note* Brief Op Note - Serina Meyers MD - 03/30/2022 12:23 PM EDT Brief Post Operative Note Patient Name: Radha Shafer : 1960 (61 y.o.) Date of Service: 03/30/2022 [facility]: [id number] Procedure(s): ALTEMEIER PROCEDURE Pre-Operative Diagnoses: * Rectal prolapse [K62.3] Post-Operative Diagnoses: * Rectal prolapse [K62.3] Surgeon(s) and Role: * Jada Vargas MD - Primary Luigi pgy6 Anesthesiologist: Alexandro Rajput MD MUSIC SPECIALIST: Gen Hartmann CRNA Senior Search Marketing Analyst: Janice Vergara RN Senior Search Marketing Analyst Relief: Rosina Cazares RN Scrub Person Relief: [...] * Serina Meyers MD 03/30/2022 2:50 PM [id number] Hospital course Narrative* Serina Meyers MD - 03/30/2022 12:23 PM EDT Images from the original note were not included. DISCHARGE SUMMARY Patient: Radha Shafer Date of : 1960 Site: [facility] Family Provider: Jonathan Rutherford CNP Admit Date: [...] Trelegy Ellipta 200-62.5-25 mcg Dsdv Generic drug: flvmgdwpfwb-rpaatnybc-gbjfszmz What changed: Another medication with the same [...] Physician(s) Family Provider: Jonathan Rutherford CNP, Address: [address] [place] [address] Follow Up: No follow-up provider specified. Additional [...] Fu in 2-3 weeks. documented in this [id number] Attending History and physical note* Jada Vargas MD - 03/30/2022 11:13 AM EDT INTERVAL HISTORY AND PHYSICAL Patient Name: Radha Shafer Admit Date: 5241208 MR #: [id number] : 1960 The H&P has been reviewed and the patient has been examined. I concur with the findings of the H&P. There are no significant changes. It is appropriate to proceed with the planned procedure. Jada Vargas MD 03/30/2022 11:13 AM Source Note - Jada Vargas MD - 03/25/2022 1:52 PM EDT [id number] History and physical note* Jada Vargas MD - 03/30/2022 11:13 AM EDT INTERVAL HISTORY AND PHYSICAL Patient Name: Radha Shafer Admit Date: 5241208 MR #: [id number] : 1960 The H&P has been reviewed and the patient has been examined. I concur with the findings of the H&P. There are no significant changes. It is appropriate to proceed with the planned procedure. Jada Vargas MD 03/30/2022 11:13 AM Source Note - Jada Vargas MD - 03/25/2022 1:52 PM EDT documented in this [id number] Nurse Surgical operation note* Stacy Alexander RN - 03/29/2022 11:24 AM EDT PT DENIES IMPLANTS [facility] Surgical Department Patient Instructions for [facility]: Prior to surgery: Please bathe the night [...] if desired. When you arrive at the [facility] on the day of your surgery, please note that can labeler parking is free. Pull up to the [...] to view our online educational program in [employer]? It is very helpful to watch this as it can help you understand your surgery preparation process here at [facility]. It will provide you with additional important [...] when being transported by a Medical Tax[employer] [id number] Nurse Note* Stacy Alexander RN - 03/29/2022 11:24 AM EDT PT DENIES IMPLANTS [place] Main Surgical Department Patient Instructions for [facility]: Prior to surgery: Please bathe the night [...] if desired. When you arrive at the [facility] on the day of your surgery, please note that can labeler parking is free. Pull up to the [...] to view our online educational program in StudySoup? It is very helpful to watch this as it can help you understand your surgery preparation process here at [facility]. It will provide you with additional important [...] Jonathan Rutherford CNP to be faxed to [phone]. * Elo Venegas RN - 03/28/2022 7:58 [...] cardiac clearance and labs be faxed to [phone] when completed. * Elo Venegas RN - 03/24/2022 1:45 PM EDT Secure chat message to Darlin at Dr. Vargas's office requesting orders and consent. documented in this [id number] Nurse Surgical operation note* Elo Venegas RN - 03/29/2022 8:[address] Carter who is third call today to discuss patient's chart and cardiac results. Dr. Carter reviewed patient's chart and agreed with cardiology and stated it is ok to proceed with surgery. [id number] Nurse Surgical operation note* Elo Venegas RN - 03/29/2022 8:10 AM EDT Called patient's PCP office and requested updated not from Jonathan Rutherford CNP to be faxed to [phone]. [id number] History of Present illness Narrative* Jyoti Reeves - 03/28/2022 4:15 PM EDT Pt notified cardiac clearance in chart. documented in this [id number] Nurse Surgical operation note* Elo Venegas RN - 03/28/2022 7:58 AM EDT Secure chat message to Sindhu at Dr. Vargas's office requesting orders and consent. [id number] Nurse Surgical operation note* Elo Venegas RN - 03/25/2022 12:32 PM EDT Secure chat message to Sindhu at Dr. Vargas's office inquiring about how Dr. Vargas would like to proceed since at this current time patient is not cleared for surgery from PCP or from cardiology. Also requested orders and consent to be faxed over. [id number] Nurse Surgical operation note* Elo Venegas RN - 03/24/2022 1:50 PM EDT Called patient's PCP office and requested PAT paperwork, cardiac clearance and labs be faxed to [phone] when completed. [id number] Nurse Surgical operation note* Elo Venegas RN - 03/24/2022 1:45 PM EDT Secure chat message to Darlin at Dr. Vargas's office requesting orders and consent. [id number] History of Present illness Narrative* Jyoti Reeves - 03/21/2022 2:39 PM EDT Pt needs stress test and cardiology consult before surgery. Jason Grullon at Jonathan Rutherford CNP office. She will put referrals in today with note to expedite due to surgery date 03/30. * Jyoti Reeves - 03/21/2022 1:52 PM EDT Faxed ekg to Jonathan Rutherford CNP. documented in this [id number] History of Present illness Narrative* Jyoti Reeves - 03/21/2022 1:52 PM EDT Faxed ekg to Jonathan Rutherford CNP. documented in this [id number] History of Present illness Narrative* Jada Vargas [...] urinating All questions answered. documented in this [id number] History of Present illness Narrative* America Stone MA - 01/07/2022 9:56 AM EST Pt [place] [facility] [place] @11:30am H/o polyps documented in this [id number] Note* Addendum Note - Bety Hanson LPN - 12/30/2021 12:01 PM ESTAddended by: BETY HANSON on: 12/30/2021 12:01 PM Modules accepted: Orders [id number] Note* Addendum Note - Bety Hanson LPN - 12/30/2021 12:01 PM ESTAddended by: BETY HANSON on: 12/30/2021 12:01 PM Modules accepted: Orders [id number] Note* Addendum Note - Bety Hanson LPN - 12/30/2021 12:01 PM ESTAddended by: BETY HANSON on: 12/30/2021 12:01 PM Modules accepted: Orders [id number] Miscellaneous Notes* Addendum Note - Bety Hanson LPN - 12/30/2021 12:01 PM ESTAddended by: BETY HANSON on: 12/30/2021 12:01 PM Modules accepted: Orders documented in this [id number] History of Present illness Narrative* Estrada Garcia MD - 12/30/2021 11:00 AM EST [facility] [address] [facility] [facility] [id number] Name: Radha Shafer Age: 61 y.o. : 1960 Today's date: 12/30/21 Outpatient Pulmonary Consult Note Chief Complaint Patient presents with Consult Pre-op Radha Shafer is a 61 y.o. female who presents to Pulmonary clinic for evaluation of pre-operative risk assessment. They were referred by Dr. Rutherford. HPI: Ms. Shafer is a 61 year old woman 25 pack year former smoker who quit in 2013 with COPD who presents for initial evaluation. [...] was has not followed with her old robotics technologist so has been going without any inhalers. [...] to episodic myopathy. She is treated at [facility]. 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 - ipratropium-albuteroL (DUO-NEB) 0.5-2.5 mg/3 ml nebulizer; Take 3 mL by nebulization 3 (three) times a day as needed for wheezing or shortness of breath . - Home Oxygen Concentrator with Portability Nasal cannula; 2 LPM; Continuous and/or During Exertion; [facility] Ms. 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 Mouth/Throat: Lips: [place]. No lesions. Mouth: No lacerations or oral [...] sprays into each nostril daily . Chepe iYn CNP 08/04/21 documented in this [id number] NoteTherapy Diagnosis Assessed Cervical radiculopathy, acute (723.4) [...] secs on/20 off with lbs as tolerated. ANTENNA SPECIALIST can also manual distraction and soft tissue [...] with pain, flexion chin to chest MMT: [facility] PALPATION: defer (more content not included)...[id number] Emergency department Note * Georgie Vázquez MD - 04/14/2021 3:56 PM EDT [facility] ED Attending Note: NAME: Radha Shafer 60 y.o. CSN: [id number] PCP: Jonathan Rutherford CNP History: Chief Complaint: [...] managed for this by Dr. Salinas at [facility]. 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 MYOGLOBIN, URINE No orders to display Procedures: Procedures ED Course / Medical Decision Making: Work-up of the patient has an elevated CPK of 1900 and elevated creatinine of 1.7, up from her previous creatinine 3 months ago of 1.4. Case is discussed with Dr. Gonzalez, dairy store manager on-call for thepatient's own physician Dr. Salinas. [...] for repeat CPK and chemistry at the [facility] lab system here. The patient understands to get a blood test obtained and to call Dr. Salinas's office to set up a follow-up appointment. She also agrees to call their office if she gets worse, at their suggestion, or return to the emergency department. . Clinical Impression: 1. Inborn error of metabolism Disposition: Patient is being discharged to home Georgie Vázquez MD [facility] Emergency Department (Please note that portions of this note have been completed with a voice recognition software. Efforts were made to correct any errors, but occasionally words are mis-transcribed.) Georgie Vázquez MD 04/14/211710 * Aleyda Thomas, JASON - 04/14/2021 3:08 PM EDT PT STATES SHE HAS CPT2 DEFICIENCY AND IS HAVING AN ATTACK, STATES SHE RECENTLY MOVED, STATES DR SALINAS NEEDS TO BE CONTACTED AT [facility]. * Zamzam Fink - 04/14/2021 2:58 PM EDT Bed: 25 Expected date: Expected time: Means of arrival: Comments: Triage PT documented in this [id number] Hospital Discharge instructions * Instructions* Georgie Vázquez MD - 04/14/2021 Continue to drink lots of water as you have been. Follow-up with Dr. Salinas. Return or call Dr. Salinas if you get worse. * Attachments The following attachments cannot be sent through Care Everywhere. * Cramp: Muscle (Samoan) documented in this [id number] History of Present illness Narrative* At this [...] Dizziness and giddiness [facility] Diagnosis Rectal prolapse- Primary [facility]* Diagnosis Dizzy- Primary Dizziness and giddiness Positional lightheadedness Chronic rhinitis Dysfunction of Eustachian tube, unspecified laterality [facility] Screening for lung cancer- Primary Chronic obstructive pulmonary disease, unspecified COPD type (HCC) [facility] Diagnosis Screening for lung cancer- Primary Chronic obstructive pulmonary disease, unspecified COPD type (HCC) [facility]* Diagnosis Hx of colonic polyps- Primary Personal history of colonic polyps Hx of colonic polyps- Primary Personal history of colonic polyps [facility] Diagnosis Hx of colonic polyps- Primary Personal history of colonic polyps Hx of colonic polyps- Primary Personal history of colonic polyps [facility]* Diagnosis Rectal prolapse [facility] Diagnosis Rectal prolapse- Primary Rectal prolapse- Primary [facility]* Diagnosis Rectal prolapse- Primary Rectal prolapse- Primary Preoperative testing Unspecified pre-operative examination Abdominal pain, unspecified abdominal location Rectal prolapse [facility] Diagnosis Rectal prolapse- Primary [facility] Diagnosis Acute renal failure superimposed on chronic kidney disease, unspecified CKD stage, unspecified acute renal failure type (HCC) Diarrhea, unspecified type Hyperkalemia Hyperpotassemia Chronic obstructive pulmonary disease, unspecified COPD type (HCC) Rectal bleeding Hemorrhage of rectum and anus Rectal prolapse Surgery follow-up Pain Generalized pain Non-traumatic rhabdomyolysis Chronic obstructive pulmonary disease with acute exacerbation ([facility]) 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 KRISTIN (acute kidney injury) ([facility]) CKD (chronic kidney disease) stage 3, GFR 30-59 ml/min ([facility]) Chronic kidney disease, Stage III (moderate) [facility] COPD exacerbation (HCC)- Primary Obstructive chronic bronchitis with exacerbation Screening for lung cancer [facility] Diagnosis Pain of upper abdomen- Primary Nausea Nausea alone Diarrhea, unspecified type Pain of upper abdomen Nausea Nausea alone Pain of upper abdomen Nausea Nausea alone [facility] Diagnosis Onset Date Resolution Status Carnitine palmitoyltransferase II deficiency chronic Insomnia chronic Low back pain chronic Neck pain chronic Peripheral arterial disease chronic Polyneuropathy chronic [facility] [place] Work Phone: Evaluation note* Diagnosis Onset Date [...] ctive COPD (chronic obstructive pulmonary disease) noneactive [facility] [place] Work Phone: Evaluation note* Diagnosis Onset Date [...] ctive COPD (chronic obstructive pulmonary disease) noneactive [facility] [place] Work Phone: Evaluation note* 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 documented in this encounter [facility] Diagnosis Onset Date Resolution Status Cervical radiculopathy acute Fatigue acute Insomnia chronic Low back pain chronic Neck pain chronic Peripheral arterial disease chronic Polyneuropathy chronic Chronic bronchitis chronic Hypoxia chronic FELISA (obstructive sleep apnea) chronic Smoking greater than 30 pack years chronic 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 artery disease 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 Essential hypertension chron ic FELISA (obstructive sleep apnea) chronic Palpitations chronic Syncope chronic [facility] [place] Work Phone: Evaluation note* Diagnosis Onset Date Resolution Status Cervical radiculopathy acute Fatigue acute Insomnia chronic Low back pain chronic Neck pain chronic Peripheral arterial disease chronic Polyneuropathy chronic Chronic bronchitis chronic Hypoxia chronic FELISA (obstructive sleep apnea) chronic Smoking greater than 30 pack years chronic Coronary artery disease 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 Essential hypertension chron ic FELISA (obstructive [...] disease) noneactive Screening for breast cancer noneactive [facility] [place] Work Phone: Evaluation note* Diagnosis Onset Date Resolution Status Chronic bronchitis chronic Hypoxia chronic FELISA (obstructive sleep apnea) chronic Smoking greater than 30 pack years chronic Coronary artery disease 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 Essential hypertension chron ic FELISA (obstructive [...] disease) noneactive Screening for breast cancer noneactive [facility] [place] Work Phone: Evaluation note* Diagnosis Onset Date Resolution Status Coronary artery disease 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 Essential hypertension chron ic FELISA (obstructive [...] disease) noneactive Screening for breast cancer noneactive [facility] [place] Work Phone: Evaluation note* Diagnosis Pain- Primary Generalized pain [facility] Diagnosis Trigger finger of left thumb- Primary [facility] Diagnosis Onset Date Resolution Status Coronary artery disease 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 Essential hypertension chron ic Nonsustained ventricular tachycardia chronic Obesity chronic FELISA (obstructive sleep apnea) chronic Palpitations chronic Syncope chronic Polyneuropathy acute [facility] [place] Work Phone: Evaluation note* Diagnosis Onset Date Resolution Status Coronary artery disease 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 Essential hypertension chron ic Nonsustained ventricular [...] pulmonary disease) noneactive Polyclonal gammopathy chroni c [facility] [place] Work Phone: Evaluation note* Diagnosis Onset Date [...] abdominal pain nonea ctive Post-operative hypothyroidism noneactive [facility] [place] Work Phone: Evaluation note* Diagnosis Coronary artery disease, angina presence unspecified, unspecified vessel or lesion type, unspecified whether [place] or transplanted heart Cardiomyopathy, unspecified type (HCC) [...] Primary Generalized pain documented in this encounter [facility] note* Diagnosis Coronary artery disease, angina presence unspecified, unspecified vessel or lesion type, unspecified whether [place] or transplanted heart Cardiomyopathy, unspecified type (HCC) [...] of upper abdomen Acute hypercapnic respiratory failure (HCC)- Primary Respiratory failure, unspecified chronicity, unspecified whether with hypoxia or hypercapnia ([facility]) COPD exacerbation ([facility]) Obstructive chronic bronchitis with exacerbation Cellulitis of left knee documented in this encounter [facility] note* Diagnosis Coronary artery disease, angina presence unspecified, unspecified vessel or lesion type, unspecified whether [place] or transplanted heart Cardiomyopathy, unspecified type (HCC) [...] of upper abdomen NSVT (nonsustained ventricular tachycardia) ([facility])- Primary documented in this encounter [facility] note* Diagnosis Coronary artery disease, angina presence unspecified, unspecified vessel or lesion type, unspecified whether [place] or transplanted heart Cardiomyopathy, unspecified type (HCC) [...] ventricular tachycardia Palpitations NSVT (nonsustained ventricular tachycardia) ([facility]) [facility] Diagnosis Coronary artery disease, angina presence unspecified, unspecified vessel or lesion type, unspecified whether [place] or transplanted heart Cardiomyopathy, unspecified type (HCC) [...] Stage III (moderate) KRISTIN (acute kidney injury) ([facility]) Non-traumatic rhabdomyolysis Diarrhea, unspecified type Rectal prolapse [...] joint, unspecified laterality [facility] Diagnosis Coronary artery disease, angina presence unspecified, unspecified vessel or lesion type, unspecified whether [place] or transplanted heart Cardiomyopathy, unspecified type (HCC) Sleep apnea, unspecified type Chronic obstructive pulmonary disease, unspecified COPD type (HCC) Hypertension, unspecified type Abnormal electrocardiogram Nonspecific abnormal electrocardiogram (ECG) (EKG) Chest pain, unspecified type 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 Rectal prolapse- Primary Chest pain- Primary Unspecified chest pain Stable angina (HCC) Other and unspecified angina pectoris Pain of upper abdomen Ventricular tachycardia (HCC)- Primary Paroxysmal ventricular tachycardia Palpitations NSVT (nonsustained ventricular tachycardia) ([facility]) [facility] Diagnosis Coronary artery disease, angina presence unspecified, unspecified vessel or lesion type, unspecified whether [place] or transplanted heart Cardiomyopathy, unspecified type (HCC) Sleep apnea, unspecified type Chronic obstructive pulmonary disease, unspecified COPD type (HCC) Hypertension, unspecified type Abnormal electrocardiogram Nonspecific abnormal electrocardiogram (ECG) (EKG) Chest pain, unspecified type 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 Rectal prolapse- Primary Chest pain- Primary Unspecified chest pain Stable angina (HCC) Other and unspecified angina pectoris Pain of upper abdomen SOB (shortness of breath)- Primary Shortness of breath Acute on chronic respiratory failure, unspecified whether with hypoxia or hypercapnia ([facility]) Acute on chronic congestive heart failure, unspecified heart failure type (HCC) SIRS (systemic inflammatory response syndrome) ([facility]) Systemic inflammatory response syndrome, unspecified Pneumonia Pneumonia, organism unspecified CKD (chronic kidney disease) Chronic kidney disease, unspecified Acute exacerbation of chronic obstructive pulmonary disease (COPD) ([facility]) Obstructive chronic bronchitis with exacerbation Elevated CPK Other nonspecific abnormal serum enzyme levels 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 Myalgia Unspecified myalgia and myositis COPD exacerbation ([facility]) Obstructive chronic bronchitis with exacerbation [facility] Diagnosis Coronary artery disease, angina presence unspecified, unspecified vessel or lesion type, unspecified whether [place] or transplanted heart Cardiomyopathy, unspecified type (HCC) Sleep apnea, unspecified type Chronic obstructive pulmonary disease, unspecified COPD type ([facility]) Hypertension, unspecified type Abnormal electrocardiogram Nonspecific abnormal electrocardiogram (ECG) (EKG) Chest pain, unspecified type 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 states she is having trouble breathing, she is trying to get oxygen for home. Pt. sees on Mo nday). Pt. is breathing fine during session, on [...] sent through Care Everywhere. * High-Fiber Diet (Samoan) documented in [facility] encounter[facility]HealthReason for referral (narrative)No reason for referral information [facility]WOhio[facility] Work [facility]: Reason for visit Narrative* Auth/Cert Specialty Diagnoses / Procedures Referred By Contac t Referred To Contact Diagnoses Rectal prolapse Rectal prolapse [K62.3] Procedures NJ EXCIS RECTAL PROLAPSE,PERINEAL Jada Vargas [place] [address] Referral ID Status Reason Start Date Expiration Date Visits Re quested Visits Authorized [id number] 03/07/2022 1 1 [facility] Assessments Diagnosis Surgery follow-up - Primary Diagnosis Coronary artery disease, angina presence unspecified, unspecified vessel or lesion type, unspecified whether [place] or transplanted heart Cardiomyopathy, unspecified type (HCC) [...] right knee- Primary Summary Purpose Family History Relationship Condition Age at Onset Recorded Date/T [...] Unknown grandmother Myocardial infarction Unknown Advance Directives Date Activated Date Inactivated Comments 09/02/2024 1:03 PM 09/03/2024 9:50 PM Date Activated Date Inactivated Comments 09/24/2022 3:56 AM 09/27/2022 8:25 PM Date Activated Date Inactivated Comments 06/21/2022 2:03 PM 06/29/2022 4:39 PM Date Activated Date Inactivated Comments 03/30/2022 7:25 PM 04/04/2022 2:07 PM Date Activated Date Inactivated Comments 07/15/2015 4:39 PM 07/16/2015 5:24 PM Documents on File Type Date Recorded Patient Aerodynamics Teacher Expl 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 Advance Directives and Living Will Latest Code Status on File Code Status Date Activated Date Inactivated Comments Full Code 07/15/2015 4:39 PM 07/16/2015 5:24 PM Documents on File Type Date Recorded Patient Aerodynamics Teacher Expl anation Advance Directives and Livin g Will 04/10/2019 12:40 PM Documents on File Type Date Recorded Patient Aerodynamics Teacher Expl anation Advance Directives and Livin g Will 05/07/2019 2:35 PM Documents on File Type Date Recorded Patient Aerodynamics Teacher Expl anation Advance Directives and Livin g Will 05/15/2020 12:00 AM Documents on File Type Date Recorded Patient Aerodynamics Teacher Expl anation Advance Directives and Livin g Will 09/15/2020 12:00 AM Latest Code Status on File Code Status Date Activated Date Inactivated Comments Full Code 07/15/2015 4:39 PM 07/16/2015 5:24 PM Documents on File Type Date Recorded Patient Aerodynamics Teacher Expl anation Advance Directives and Livin g Will 11/02/2020 1:59 PM Documents on File Type Date Recorded Patient Aerodynamics Teacher Expl anation Advance Directives and Livin g Will 11/09/2020 12:00 AM Documents on File Type Date Recorded Patient Aerodynamics Teacher Expl anation Advance Directives and Livin g Will 11/09/2020 12:00 AM Documents on File Type Date Recorded Patient Aerodynamics Teacher Expl anation Advance Directives and Livin g Will 05/07/2019 2:35 PM Documents on File Type Date Recorded Patient Aerodynamics Teacher Expl anation Advance Directives and Livin g Will 04/14/2021 3:22 PM Documents on File Type Date Recorded Patient Aerodynamics Teacher Expl anation Advance Directives and Livin g Will 05/30/2021 8:35 PM Documents on File Type Date Recorded Patient Aerodynamics Teacher Expl anation Advance Directives and Livin g Will 05/30/2021 8:35 PM Documents on File Type Date Recorded Patient Aerodynamics Teacher Expl anation Advance Directives and Livin g Will 12/29/2021 3:40 PM Documents on File Type Date Recorded Patient Aerodynamics Teacher Expl anation Advance Directives and Livin g Will 12/29/2021 3:40 PM Documents on File Type Date Recorded Patient Aerodynamics Teacher Expl anation Advance Directives and Livin g Will 02/25/2022 3:40 PM Documents on File Type Date Recorded Patient Aerodynamics Teacher Expl anation Advance Directives and Livin g Will 03/04/2022 3:00 PM Documents on File Type Date Recorded Patient Aerodynamics Teacher Expl anation Advance Directives and Livin g [...] Do you have a Healthcare Power of Barber Instructor? No June 12, 2024 9:25pm Living Will No January 01 5:37pm Do you have a Healthcare Power of Barber Instructor? No January 01, 2025 5:37pm Date Activated [...] Do you have a Healthcare Power of Barber Instructor? No June 12, 2024 9:25pm Advance Directive Response Recorded Date/ Time Living Will No June 12, 2024 9:25pm Do you have a Healthcare Power of Barber Instructor? No June 12, 2024 9:25pm Do you have a Healthcare Power of Barber Instructor? No July 17, 2025 7:12pm Reason for Referral Status Reason Specialty Diagnoses / Procedures Referred By Contact Referred To Contact Pending Review Cardiology Diagnoses Abnormal electrocardiogram Cardiomyopathy, unspecified type (HCC) Hypertension, unspecified type Procedures Echocardiogram complete Whitley Martinez MD [address] [place] [address] Status Reason Specialty Diagnoses / Procedures Referre d By Contact Referred To Contact Closed Diagnoses Myopathy Procedures MRI LONG BONE NEUROGRAPHY LOWER EXTREMITY LEFT Brittany Rushing MD [address] [place] [address] Status Reason Specialty Diagnoses / Procedures Referre d By Contact Referred To Contact Closed Diagnoses Osteoarthritis of spine with radiculopathy, lumbar region Procedures MRI SPINE LUMBAR WITHOUT CONTRAST Brittany Rushing MD [address] [place] [address] Status Reason Specialty Diagnoses / Procedures Referre d By Contact Referred To Contact Closed Diagnoses Cervical spine disease Procedures MRI SPINE CERVICAL WITHOUT CONTRAST Brittany Rushing MD [address] [place] [address] Status Reason Specialty Diagnoses / Procedures Referre d By Contact Referred To Contact Closed Radiology Diagnoses Right hip pain Procedures MR Hip Right Without Contrast Rusty Dozier MD [address] [place] [address] Status Reason Specialty Diagnoses / Procedures Referre d By Contact Referred To Contact Closed Cardiology Diagnoses Abnormal electrocardiogram Cardiomyopathy, unspecified type (HCC) Hypertension, unspecified type Procedures Echocardiogram complete Whitley Martinez MD [address] [place] [address] Status Reason Specialty Diagnoses / Procedures Referre d By Contact Referred To Contact Closed Cardiology Diagnoses Claudication of lower extremity (HCC) Procedures Ultrasound ankle / brachial indices extremity complete Elana Pena, [address] [place] [address] Specialty Diagnoses / Procedures Referred By Contac t Referred To Contact Otolaryngology Diagnoses Dizzy Jonathan Rutherford, SOLDERER [address] [place] [phone] Alan Saba MD [address] [place], [place] [id number] Referral ID Status Reason Start Date Expiration Date V isits Requested Visits Authorized [id number] Pending Review 07/22/2021 07/22/2022 1 1 Specialty Diagnoses / Procedures Referred By Contac t Referred To Contact General Surgery Diagnoses Rectal prolapse Jonathan Rutherford, SOLDERER [address] [phone] Jada Vargas MD [address] [place] [address] Referral ID Status Reason Start Date Expiration Date V isits Requested Visits Authorized [id number] Pending Review 07/29/2021 07/29/2022 1 1 Specialty Diagnoses / Procedures Referred By Contac t Referred To Contact Radiology Diagnoses Screening for lung cancer Chronic obstructive pulmonary disease, unspecified COPD type (HCC) Procedures CT Lung Cancer Screening Estrada Garcia MD [address] [place] [id number] Referral ID Status Reason Start Date Expiration Date V isits Requested Visits Authorized [id number] New Request 12/30/2021 12/30/2022 1 1 Specialty Diagnoses / Procedures Referred By Contac t Referred To Contact Cardiology Diagnoses Rectal prolapse Preoperative testing Procedures ECG 12 Lead Jada Vargas MD [address] [address] Referral ID Status Reason Start Date Expiration Date V isits Requested Visits Authorized [id number] Authorized 03/08/2022 03/08/2023 1 1 Specialty Diagnoses / Procedures Referred By Contac t Referred To Contact Radiology Diagnoses Screening for lung cancer Personal history of nicotine dependence Procedures CT Lung Cancer Screening Estrada Garcia MD [facility] Bonvicky Alejandre [address] [place] [id number] Referral ID Status Reason Start Date Expiration Date V isits Requested Visits Authorized [id number] New Request 01/05/2023 01/05/2024 1 1 Instructions * Patient Instructions* Hayley Glez RN - 04/05/2019 2:23 PM EDT .How to contact your Care Team: Provider: Whitley Martinez MD [facility] Nurse: Hayley Glez RN In case of an emergency please call 911. REFILLS: When in need for refills please call your care team or the office at [phone]. Please include medication name, pharmacy name, and specify 30-day or 90-day supply. Please check with your pharmacy within 24 hours of request for your refill. You must follow up as directed to continue current refills. Thank you! documented in this encounter History of Present Illness * Whitley Martinez MD - 04/05/2019 2:25 PM EDT OFFICE CONSULTATION NOTE [facility] [address] (11) [facility] [address] [facility] [address] Physicians: Elana Pena DO (Family); [...] called CPT2 deficiency. [facility] for [facility]. The patient does [...] antihypertensive regimen. COPD (chronic obstructive pulmonary disease) (HCC) She is followed by pulmonology. Sleep apnea [...] is noncardiac. Continue to observe. 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HCC) I have ordered an [...] TOTAL THYROIDECTOMY; Surgeon: Lopez Alonso MD; Location: [facility]; Service: US ECHO TRANSTHORACIC FOLLOWUP [...] Sleep Apnea Copd (Chronic Obstructive Pulmonary Disease) ([facility]) Hypertension Chest Pain Cpt2 Deficiency ([facility]) Objective: Physical Exam Constitutional: She is [...] MD Authorized by: Rivas Jules MD CPT 83412 - Large Joint Arthrocentesis: Consent given by: [...] - 09/15/2020 3:04 PM EST [facility] [address] ([address]) [facility] [address] [facility] [phone] Radha Shafer is a 60 y.o. female [...] allergies, and problem list items with Radha uL during this visit. Review of Systems Constitutional: [...] Conte MD - 11/24/2020 9:43 AM EST [facility] - Neurology [address]nd floor [place], [place] [address] Nerve Conduction & EMG Report Patient: Radha [...] Neurophysiology, Neurology, Vascular Neurology and Sleep Medicine [facility] [phone] Nota bene: Portions of this chart was created using Mixaloo voice recognition software. Occasional wrong-word or sound-like [...] CNP Authorized by: Flori Rodrigues CNP CPT 85212 - Large Joint Arthrocentesis: Consent given by: [...] CNP - 11/09/2020 10:00 AM EST Radha Shafer 1960 CC: 60 y.o. is a she with Chief Complaint Patient presents with Right Knee - Pain . HPI: Knee Pain: Patient complains of right knee pain. She has had a left total knee by Dr. Jules in the past..This is evaluated as a acute pain since [place], no injury. 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 * Joint Pain (Samoan) documented in this encounter Chief Complaint and Reason for Visit Chief Complaint FOLLOW UP R/S EORDER Reason for Visit Carnitine palmitoylt ransferase II deficiency Insomnia Low back pain Neck pain Peripheral arterial disease Polyneuropathy Chief Complaint FOLLOW UP R/S EORDER GRAIN CLEANER, EST. CARE, PT NEEDS NPP Reason for [...] disease) Chief Complaint FOLLOW UP R/S EORDER GRAIN CLEANER, EST. CARE, PT NEEDS NPP CERVICAL RAD [...] COPD (chronic obstructive pulmonary disease) Chief Complaint GRAIN CLEANER, EST. CARE, PT NE EDS NPP CERVICAL [...] for Visit Polyneuropathy Carnitine palmitoyltransferase II deficiency FEILSA (obstructive sleep apnea) Stage 3b chronic kidney [...] abdominal pain October 16 1:13pm Post-operative hypothyroidism Ramiro 1 1th, 2024 1:13pm Ventricular tachycardia October 16, 2 024 [...] 2025 9:54am Degenerative disc disease, cervical Quinn h 2024 9:54am Right shoulder pain January 21, [...] 2025 9:54am Degenerative disc disease, cervical Quinn h 2024 9:54am Right shoulder pain January 21, [...] 12pm Smoking greater than 20 pack years Aug2024 2:44pm Stage 3 severe COPD by GOLD [...] 44pm J44.9 - Chronic obstructive pulmonary di rahda uns June 24, 2025 12:50pm DISCUSS BLOODWORK [...] 2:44pm Anemia June 26, 2025 1: 54pm Chief Complaint [...] INT ORDERS June 26, 2025 3: 27pm STOP BANG 6 July 11, 2025 8:16pm pain July 17, 2025 10:51pm Reason for Visit Admit Date Low back [...] 2:44pm Anemia June 26, 2025 1: 54pm Carnitine palmitoyltransferase II defici ency July 17, 2025 10:51pm Elevated CPK July 17, 2025 10:51pm Generalized weakness July 17 10:51pm Myalgia July 17, 2025 10:51pm Obesity (BMI 30-39.9) July 17 10:51pm Secondary rhabdomyolysis July 17, 2025 10:51pm Additional Source Comments INFORMATION SOURCE (unrecogn ized section and content) DATE CREATED AUTHOR 05/01/2018 [facility] DATE CREATED AUTHOR AUTHOR'S ORGANIZ ATION 07/04/2018 [facility] DATE CREATED AUTHOR AUTHOR'S ORGANIZ ATION 01/29/2019 [facility] DATE CREATED AUTHOR AUTHOR'S ORGANIZ ATION 02/16/2019 [facility] DATE CREATED AUTHOR AUTHOR'S ORGANIZ ATION 07/25/2019 [facility] DATE CREATED AUTHOR AUTHOR'S ORGANIZ ATION 04/25/2021 [facility] DATE CREATED AUTHOR AUTHOR'S ORGANIZ ATION 07/09/2021 [facility] DATE CREATED AUTHOR AUTHOR'S ORGANIZ ATION 04/12/2022 [facility] DATE CREATED AUTHOR AUTHOR'S ORGANIZ ATION 05/01/2025 [facility] DATE CREATED AUTHOR AUTHOR'S ORGANIZ ATION 05/01/2025 [facility] DATE CREATED AUTHOR AUTHOR'S ORGANIZ ATION 07/09/2025 [facility] DATE CREATED AUTHOR AUTHOR'S ORGANIZ ATION 07/14/2025 [facility] Reason for Visit (unrecogniz ed section [...] unspecified vessel or lesion type, unspecified whether [place] or transplanted heart Cardiomyopathy, unspecified type (HCC) Oscar Vinson MD [address] [place] [address] [facility] [address] [facility] [place] [address] Reason Comments Results Status Reason Specialty Diagnoses / Procedures Referre d By Contact Referred To Contact Status Reason Specialty Diagnoses / Procedures Referre d By Contact Referred To Contact Closed Cardiology Diagnoses Abnormal electrocardiogram Cardiomyopathy, unspecified type (HCC) Hypertension, unspecified type Procedures Echocardiogram complete Whitley Martinez MD [address] [place] [address] Status Reason Specialty Diagnoses / Procedures Referre d By Contact Referred To Contact Closed Cardiology Diagnoses Claudication of lower extremity (HCC) Procedures Ultrasound ankle / brachial indices extremity complete Elana Pena, DO [address] [place] [address] Reason Comments Pain Status Reason Specialty Diagnoses / Procedures Referred By Contact Referred To Contact Closed Orthopedic Surgery Diagnoses Chronic right shoulder pain Jonathan Rutherford, SOLDERER [address] [place] [address] Rivas Jules MD [address] [place] [address] Reason Comments Joint Swelling Status Reason Specialty Diagnoses / Procedures Referred By Contact Referred To Contact Pending Review Specialty Services Required/Patien t's Best Interest Neurology Diagnoses Polyneuropathy Rusty Dozier MD [address] [facility] [address] [place] [address] Eugenia Conte MD [address] [address] Reason Comments Leg Pain R leg pain for a few days - tingling and it feels different she stated. She said that the coloration to the leg is bluish. Last few visits she has been in her D-dimer has been elevated but have not found a clot Reason Comments MUSCLE CRAMPS Reason Comments New patient dizziness Specialty Diagnoses / Procedures Referred By Contac t Referred To Contact Otolaryngology Diagnoses Dizzy WilfridbayronerJonathan, SOLDERER [address] [place] [id number] Alan Saba MD [address] [place], [place] [id number] Referral ID Status Reason Start Date Expiration Date V isits Requested Visits Authorized [id number] Pending Review 07/22/2021 07/22/2022 1 1 Reason Comments Consult Pre-op Reason Onset Date Comments Medication Refill 01/07/2022 Reason Comments Rectal Prolapse Discuss surgery Reason Comments Rectal Bleeding Specialty Diagnoses / Procedures Referred By Contac t Referred To Contact Diagnoses Diarrhea Referral ID Status Reason Start Date Expiration Date Visits Re quested Visits Authorized [id number] 1 1 Reason Comments Follow-up Reason Onset [...] Breath Specialty Diagnoses / Procedures Referred By Contac t Referred To Contact Diagnoses Acute hypercapnic respiratory failure (HCC) Referral ID Status Reason Start Date Expiration Date Visits Re quested Visits Authorized 1 1 Reason Comments Initial Visit (Intake) VT/Palpitations/ Flavia Specialty Diagnoses / Procedures Referred By Contac t Referred To Contact Cardiology Diagnoses Ventricular tachycardia (HCC) Palpitations Flavia Shine MD [address] [place] [address] Phone: tel:[phone] fax: [facility] [address] 3rd [place] [address] Phone: tel: fax: Referral ID Status Reason Start Date Expiration Date V isits Requested Visits Authorized [id number] Pending Review 08/14/2024 08/14/2025 1 1 Specialty Diagnoses / Procedures Referred By Jacob t Referred To Contact Diagnoses COPD exacerbation (HCC) Acute hypoxic respiratory failure (HCC) Referral ID Status Reason Start Date Expiration Date Visits Re quested Visits Authorized [id number] 1 1 Reason Onset Date Comments Medication Prior Authorization (General) 024 Dojolvi Reason Onset Date Comments Refill Request 02/05/2025 Doljovi Reason Comments Shortness of Breath Specialty Diagnoses / Procedures Referred By Contac t Referred To Contact Diagnoses SOB (shortness of breath) Referral ID Status Reason Start Date Expiration Date Visits Re quested Visits Authorized [id number] 1 1 Reason Comments Follow-up 4 mo [...] Associated Problem(s): COPD (chronic obstructive pulmonary disease) (HCC) She is followed by pulmonology. Associated Problem(s): [...] secti on and content) ED PROVIDER NOTE [facility] NAME: Radha Shafer AGE: 60 y.o. 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 Jonathan Rutherford CNP. Specialty: Nurse Practitioner [address] [place] [id number] 2. Rivas Jules MD. Specialty: Orthopedic Surgery [address] [place] [id number] Contact information for after-discharge care Follow-up information has not been specified. Fay Sanchez PA-C 11/02/20 1524 Pt states about 1 week ago she began having right knee swelling with pain 08/15. 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 No redness noted to the area at this time. documented in this encounter ED PROVIDER NOTE [facility] NAME: Radha Shafer AGE: 59 y.o. 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 Dozier as well as Dr. Mancini. Has also [...] morning to arrange for follow-up [address] [facility] [address] 2. Rusty Dozier MD. Specialty: Neurology Why: Call first thing in the morning to arrange for follow-up [address] [facility] [address] Contact information for after-discharge care Follow-up information [...] 5 days . Natalee Ghosh CNP 05/07/19 6731 Pt reports her leg has been numb [...] ider: Aleyda Thomas RN)1725 (Stopped - Provider: Aleyda Thomas RN) Scheduled Medication Order 04/02/2022 04/03/2022 [...] Gavin RN) 0757 (Given - Provider: Delon Gavin, JASON) amLODIPine (NORVASC) tablet 10 mg 10 mg, Oral, Daily, First dose on Mon03/30/22 at 2000, PACU to Post Procedure 0812 (Given - Provider: Shaina Juárez RN) 0853 (Given - Provider: Shaina Juárez RN) 0936 (Given - Provider: Delon Gavin, JASON) aspirin chewable tablet 81 mg 81 mg, Oral, Daily, First dose on Mon03/30/22 at 2000, PACU to Post Procedure 0900 (Given - Provider: Shania Juárez RN) 0854 (Given - Provider: Shaina Juárez RN) 0941 (Given - Provider: Delon Gavin RN) budesonide-formoteroL (SYMBICORT) 80-4.5 mcg/actuation inhaler 2 puff 2 puff, Inhalation, 2 times daily (RT), First dose on Mon03/30/22 at 2000, SPACER REQUIRED FOR ADMINISTRATION 0900 (Given - Provider: Shaina Juárez RN)215 (Given - Provider: Dinorah Arriaza RN) 0857 (Given - Provider: Shaina Juárez RN)213 (Given - Provider: Delon Gavin RN) 0936 (Given - Provider: Delon Gavin RN) buPROPion (WELLBUTRIN) tablet 75 mg 75 mg, Oral, Daily, First dose on Mon03/30/22 at 2000, PACU to Post Procedure, Do Not Crush [...] 03/31/22 at 0900, PACU to Post Procedure 0811 (Given - Provider: Shaina Juárez RN) 0853 (Given - Provider: Shaina Juárez RN) 0935 (Given - Provider: Delon Gavin, JASON) DULoxetine (CYMBALTA) DR capsule 60 mg 60 mg, Oral, Daily, First dose on Mon03/30/22 at 2100, PACU to Post Procedure, DO NOT CRUSH OR CHEW. 0811 (Given - Provider: Shaina Juárez RN) 0854 (Given - Provider: Shaina Juárez RN) 0935 (Given - Provider: Delon Gavin RN) gabapentin (NEURONTIN) capsule 100 mg 100 mg, Oral, 3 times daily, First dose on Mon03/30/22 at 2100, PACU to Post Procedure 0900 (Given - Provider: Shaina Juárez RN)1429 (Given - Provider: Shaina Juárez RN)215 (Given - Provider: Dinorah Arriaza RN) 0854 (Given - Provider: Shaina Juárez RN)1520 (Given - Provider: Shaina Juárez RN)2129 (Given - Provider: Delon Gavin RN) 0941 (Given - Provider: Delon Gavin RN) heparin (porcine) injection 5,000 Units 5,000 Units, Subcutaneous, Every 8 hours scheduled, First dose on Gege 03/31/22 at 0600, PACU to Post Procedure, Notify physician if patient refuses. 0600 (Given - Provider: Bran Piedra RN)1429 (Given - Provider: Shaina Juárez RN)2150 (Given - Provider: Dinorah Arriaza RN) 0546 (Given - Provider: Dinorah Arriaza RN)152 (Given - Provider: Shaina Juárez RN)2129 (Given - Provider: Delon Gavin RN) 0800 (Given - Provider: Delon Gavin RN) insulin lispro (AdmeLOG,HumaLOG) injection 0-15 Units 0-15 Units, Subcutaneous, At bedtime, First dose (after last modification) on Gege 03/31/22 at 2100, PACU to Post Procedure, For Nightly Insulin Dose Coverage, use: CORRECTIVE (Only) for BG greater than 300, Nightly CORRECTIVE Dose Method: Follow Corrective SCALE, Corrective Scale to use for BG > 300: Normal Sensitivity Scale, For Downtime Calculator, use: Insulin SC NIGHTtime 2100 (Not Given - Provider: Dinorah Arriaza RN - Reason: Order parameters not met) 2130 (Not Given - Provider: Delon Gavin RN [...] Piedra RN) 0543 (Given - Provider: Dinorah Arriaza RN) 0758 (Given - Provider: Delon Gavin, JASON) lisinopriL (PRINIVIL,ZESTRIL) tablet 40 mg 40 mg, Oral, Daily, First dose on Mon03/30/22 at 1999, PACU to Post Procedure 0811 (Given - Provider: Shaian Juárez RN) 0853 (Given - Provider: Shaina Juárez RN) 0935 (Given - Provider: Delon Gavin RN) pantoprazole (PROTONIX) EC tablet 40 mg 40 mg, Oral, Daily, First dose on Mon03/30/22 at 1999, PACU to Post Procedure, DO NOT CRUSH OR CHEW. 0900 (Given - Provider: Shaina Juárez RN) 0900 (Given - Provider: Shaina Juárez RN) 0941 (Given - Provider: Delon Gvain RN) sodium chloride (PF) (NS) flush 5 mL(Linked Group 1) 5 mL, Intravenous, Every 8 hours scheduled, First dose on Mon03/30/22 at 2200, PACU to Post Procedure, Saline lock 0600 (Canceled Entry - Provider: Bran Piedra RN)1400 (Canceled Entry - Provider: Shaina Juárez RN)2159 (Given - Provider: Dinorah Arriaza RN) 0547 (Given - Provider: Dinorah Arriaza RN)1400 (Given - Provider: Shaina Juárez RN)2200 (Canceled Entry - Provider: Delon Gavin RN) 0600 (Canceled Entry - Provider: Delon Gavin RN) tamsulosin (FLOMAX) 24 hr capsule 0.4 mg 0.4 mg, Oral, After evening meal, First dose on Mon04/01/22 at 1800, DO NOT CRUSH OR CHEW. Give 30 minutes after the same meal daily. Monitor for orthostasis due to potential risk of syncope. 182 (Given - Provider: Shaina Juárez RN) 165 (Given - Provider: Shaina Juárez RN)1800 (Canceled Entry - Provider: Shaina Juárez RN) tiotropium bromide (SPIRIVA RESPIMAT) 2.5 mcg/actuation inhaler 2 puff 2 puff, Inhalation, Daily (RT), First dose on Mon03/31/22 at 0900 0815 (Given - Provider: Shaina Juárez RN) 0857 (Given - Provider: Shaina Juárez RN) 0900 (Due) triheptanoin Liqd 18 mL 18 mL, Oral, 4 times daily, First dose (after last modification) on Mon03/31/22 at 1200 0814 (Given - Provider: Shaina Juárez RN)1241 (Given - Provider: Shaina Juárez RN)1822 (Given - Provider: Shaina Juárez RN)2151 (Given - Provider: Dinorah Arriaza RN) 0855 (Given - Provider: Shaina Juárez RN)1323 (Given - Provider: Shaina Juárez RN)1655 (Given - Provider: Shaina Juárez RN)2133 (Given - Provider: Delon Gavin, RN) 0944 (Given - Provider: Delon Gavin, RN) PRN Medication Order 04/02/2022 04/03/2022 04/04/2022 [...] Arriaza RN) 0204 (Given - Provider: Dinorah Arriaza, JASON)0547 (Given - Provider: Dinorah Arriaza, JASON) labetaloL (NORMODYNE,TRANDATE) injection 10 mg 10 mg, Intravenous, Every 4 hours PRN, Systolic >185, Starting on Mon04/03/22 at 0752 2345 (Given - Provider: Delon Gavin, JASON) levalbuterol (XOPENEX) nebulizer solution 1.25 mg 1.25 [...] 0828 (Given - Provider: Amelia Rice RN) 914 (Given - Provider: Rd Blank RN) 0855 (Given - Provider: Angela Davila RN) azithromycin (ZITHROMAX) tablet 250 mg (CANCELED) 250 mg, Oral, Daily, First dose on Mon06/27/22 at 0900, For 4 doses, Indication: COPD Exacerbation 08 (Given - Provider: Amelia Rice RN) buPROPion [...] she takes once daily in the morning.) 0915 (Given - Provider: Rd Blank RN)2023 (Given - Provider: Lxeis Dorado LPN) 0855 (Given - Provider: Angela Davila RN) ciprofloxacin HCl (CIPRO) tablet 500 mg 500 mg, Oral, Daily, First dose on Mon06/28/22 at 1000, For patients on continuous tube feed: Hold TF from 1 hr before until 2 hrs after each dose. TF rate may need adjustment to meet caloric needs., Indication: Infectious Diarrhea 0915 (Given - Provider: Rd Blank, RN) 0855 (Given - Provider: Angela Davila, RN) DULoxetine (CYMBALTA) DR capsule 60 mg 60 mg, Oral, Daily, First dose on Mon06/22/22 at 0900, DO NOT CRUSH OR CHEW. 0829 (Given - Provider: Amelia Rice, JASON) 0915 (Given - Provider: Rd Blank, RN) 0855 (Given - Provider: Angela Davila, RN) hydrALAZINE (APRESOLINE) tablet 25 mg (CANCELED) 25 mg, Oral, Every 8 hours scheduled, First dose (after last modification) on Mon06/25/22 at 1400 0548 (Given - Provider: Silvia Jarrett LPN) ipratropium-albuteroL (DUO-NEB) 0.5-2.5 mg/3 ml nebulizer solution 3 mL 3 mL, Inhalation, Every 6 hours while awake (RT), First dose on Mon06/26/22 at 1200 0724 (Given - Provider: Margie Huynh, NEWS GATHERING TECHNICIAN)1425 (Given - Provider: Margie Huynh, NEWS GATHERING TECHNICIAN)1913 (Given - Provider: Cecille Maria, NEWS GATHERING TECHNICIAN) 0720 (Given - Provider: Margie Huynh NEWS GATHERING TECHNICIAN)1404 (Given - Provider: Margie Huynh, NEWS GATHERING TECHNICIAN)2048 (Given - Provider: Mike Esqueda, NEWS GATHERING TECHNICIAN) 0716 (Given - Provider: Aleisha Pickett, NEWS GATHERING TECHNICIAN)1400 (Due) levothyroxine (SYNTHROID, LEVOTHROID) tablet 175 mcg 175 mcg, Oral, Daily, First dose (after last modification) on Mon06/22/22 at 0600, For patients on continuous tube feed: Hold TF from 1 hr before until 1 hr after each dose. TF rate may need adjustment to meet caloric needs. 0635 (Given - Provider: Silvia Jarrett LPN) 0536 (Given - Provider: Sapna Maldonado RN) 0554 (Given - Provider: Lexis Dorado LPN) loperamide (IMODIUM) capsule 2 mg 2 mg, Oral, 3 times daily, First dose (after last modification) on Mon06/28/22 at 1000, Do not exceed 16 MG (8 caps)/ 24 HRS 0915 (Given - Provider: Rd Blank RN)1402 (Given - Provider: Rd Blank RN)202 (Given - Provider: Lexis Dorado LPN) 0854 (Given - Provider: Angela Davila RN) magnesium sulfate 2 g in sterile water (SW) 50 mL IVPB (COMPLETED) 2 g, Intravenous, at 50 mL/hr, Once, On Mon06/28/22 at 1145, For 1 dose 1224 (New Bag - Provider: Rd Blank RN) 0900 (Stopped - Provider: Angela Davlia RN) metoprolol tartrate (LOPRESSOR) tablet 25 mg 25 mg, Oral, 2 times daily, First dose on Mon06/27/22 at 1230 1230 (Canceled Entry - Provider: Amelia Rice RN)2013 (Given - Provider: Sapna Maldonado RN) 0915 (Given - Provider: Rd Blank RN)2200 (Given - Provider: Lexis Dorado LPN) 0854 [...] Baker RN) 0915 (Given - Provider: Rd Blank RN)1325 (Given - Provider: Rd Blank RN)1648 (Given - Provider: Rd Blank RN) 0854 [...] Amelia Rice RN)2200 (Not Given - Provider: aSpna Maldonado RN - Reason: Contraindicated - Comment: IV fluids infusing at this time) 0600 (Not Given - Provider: Sapna Maldonado RN - Reason: Other - Comment: Task already completed)1400 (Not Given - Provider: Rd Blank RN - Reason: Other - Comment: iv infusing)2200 (Canceled Entry - Provider: Lexis Dorado LPN) 0600 (Canceled Entry - Provider: [...] Rice RN)1718 (Given - Provider: Lawanda Baker RN)2100 (Not Given - Provider: Sapna Maldonado RN - Reason: Patient/family refused) 0915 (Given - Provider: Rd Blakn RN)1325 (Given - Provider: Rd Blank RN)1648 (Given - Provider: Rd Blank RN)2100 (Not Given - Provider: Lexis Dorado LPN - Reason: Patient/family refused) 0854 (Given - Provider: Angela Davila, RN)1300 (Not Given - Provider: Angela Davila RN - Reason: Patient/family refused) Continuous Medication Order 06/27/2022 06/28/2022 06/29/2022 sodium chloride 0.9% (NS) () 75 mL/hr, Intravenous, Continuous, Starting on Mon06/27/22 at 1600, For 26 hours, 2 L 1528 (New Bag - Provider: Amelia Rice RN)1528 (Paused - Provider: Sapna Maldonado, RN)1528 (Restarted - Provider: Sapna Maldonado RN)1528 (Paused - Provider: Sapna Maldonado RN)1612 (Restarted - Provider: Lawanda Baker RN)2016 (Paused - Provider: Sapna Maldonado RN)2016 (Restarted - Provider: Sapna Maldonado RN)2019 (Paused [...] at 2022, May cause QT interval prolongation. 2015 (Given - Provider: Sapna Maldonado RN) hydrALAZINE [...] 8 per minute., Starting on Mon06/21/22 at 2057, Mix nalOXone (NARCAN) 0.4 mg (1mL) with 9 mL of Normal Saline to total 10 mL. Administer 0.1 mg (2.5mL) IV Push every 2 minutes until respiratory rate is 10 or greater. naloxone (NARCAN) injection 0.4 mg(Linked Group 2) 0.4 mg, Intravenous, As needed, opioid reversal, patient is pulseless, breathless, and unresponsive, Starting on Mon06/21/22 at 2057, Call a code first, then administer naloxone dose undiluted IV Push over 30 seconds. oxyCODONE (ROXICODONE) immediate release tablet 5 mg 5 mg, Oral, Every 4 hours PRN, moderate to severe pain, Starting on Mon06/21/22 at 2057 2019 (Given - Provider: Sapna Maldonado, RN) 0536 (Given - Provider: Sapna Maldonado, RN)1325 (Given - Provider: Rd Blank RN)2022 (Given - Provider: Lexis Dorado LPN) 0854 (Given - Provider: Angela Davila RN) prochlorperazine (COMPAZINE) injection 5 mg 5 mg, [...] STAT, Until discontinued, Starting on Mon06/21/22 at 2058, Until Specified
Respiratory rate less than: 8
For respiratory rate less than or equal to 8, notify physician and/or appropriate staff for additional orders. And naloxone (NARCAN) injection 0.4 mgJump to med 0.4 mg, Intravenous, As needed, opioid reversal, patient is pulseless, breathless, and unresponsive, Starting on Mon06/21/22 at 2056
Call a code first, then administer naloxone dose undiluted IV Push over 30 seconds.
Scheduled Medication Order 09/01/2024 09/02/2024 09/03/2024 albuterol (PROVENTIL) 2.5 mg /3 mL (0.083 %) nebulizer solution 2.5 mg 2.5 mg, Nebulization, Every 6 hours scheduled (RT), First dose on Mon09/02/24 at 1999 1919 (Given - Provider: Latrice Silva, GILDA) 0243 (Given - Provider: Latrice Silva, GILDA)0711 (Given - Provider: Cecille Maria, GILDA)1404 (Given - Provider: Reema Anne, GILDA) aspirin chewable tablet 81 mg 81 mg, Oral, Daily, First dose on Mon09/02/24 at 1999 1999 (Not Given - Provider: Kayla Mujica RN - Reason: Patient/family refused) 918 (Given - Provider: Jaspreet Barnes, JASON) atorvastatin (LIPITOR) tablet 5 mg 5 mg, Oral, Nightly, First dose on Mon09/02/24 at 2100 2121 (Given - Provider: Kayla Mujica RN) cefTRIAXone (ROCEPHIN) IVPB 2 g (premix) (COMPLETED) 2,000 mg, Intravenous, at 100 mL/hr, Once, On Mon09/02/24 at 1220, For 1 dose, Indication: CAP 1300 (New Bag - Provider: Tram Perez, RN)1429 (Stopped - Provider: Tram Perez, RN) docusate sodium (COLACE) capsule 100 mg 100 mg, Oral, Daily, First dose on Mon09/03/24 at 0900, [] Hold for loose stools. DO NOT CRUSH OR CHEW. 919 (Given - Provid er: Jaspreet Barnes RN) [...] Kayla Mujica RN - Reason: Patient/family refused) 18 (Given - Provider: Jaspreet Barnes RN) enoxaparin (LOVENOX) syringe 30 mg 30 mg, Subcutaneous, Daily, First dose on Mon09/02/24 at 1999, Administer in abdomen unless otherwise directed by prescriber. Notify physician if patient refuses., Indication: VTE Prophylaxis 1999 (Not Given - Provider: Kayla Mujica RN - Reason: Patient/family refused) 0916 (Given - Provider: Jaspreet Barnes, JASON) ferrous sulfate tablet 325 mg 325 mg, Oral, Daily with breakfast, First dose on Mon09/03/24 at 0900, Do not administer within 2 hours of doxycycline 0918 (Given - Provid er: Jaspreet Barnes RN) ipratropium-albuteroL (DUO-NEB) 0.5-2.5 mg/3 ml nebulizer solution 3 mL (COMPLETED) 3 mL, Inhalation, Once, On Mon09/02/24 at 1130, For 1 dose 1143 (Given - Provider: Cecille Perez, GILDA) levothyroxine (SYNTHROID, LEVOTHROID) tablet 175 mcg [...] Oral, Daily, First dose on Mon09/02/24 at 2000 1999 (Not Given - Provider: Kayla Mujica RN - Reason: Other - Comment: patient takes in am) 919 (Given - Provider: Jaspreet Barnes, JASON) magnesium sulfate 2 g in sterile water (SW) 50 mL IVPB (COMPLETED) 2 g, Intravenous, at 50 mL/hr, Once, On Mon09/02/24 at 1130, For 1 dose 1149 (New Bag - Provider: Tram Perez RN)1241 (Stopped - Provider: Tram Perez, JASON) methylPREDNISolone [...] 1 dose 1148 (Given - Provider: Tram Perez RN) metoprolol tartrate (LOPRESSOR) tablet 100 mg 100 mg, Oral, 2 times daily, First dose on Mon09/02/24 at 2100 2122 (Given - Provider: Kayla Mujica RN) 916 (Given - Provider: Jaspreet Barnes, JASON) mometasone-formoterol (DULERA) 200-5 mcg/actuation inhaler 2 puff(Linked Group 1) 2 puff, Inhalation, 2 times daily (RT), First dose on Mon09/02/24 at 1999 1999 (Not Given - Provider: Kayla Mujica RN - Reason: Patient/family refused) 0918 (Given - Provider: Jaspreet Barnes, JASON) NIFEdipine (PROCARDIA XL) 24 hr tablet 30 mg 30 mg, Oral, Daily, First dose on Mon09/02/24 at 1999, DO NOT CRUSH OR CHEW. 2122 (Given - Provider: Kayla Mujcia RN) 919 (Given - Provider: Jaspreet Barnes, JASON) pantoprazole (PROTONIX) EC tablet 40 mg 40 mg, Oral, Daily, First dose on Mon09/02/24 at 1999, DO NOT CRUSH OR CHEW. 2122 (Given - Provider: Kayla Mujica RN) 19 (Given - Provider: Jaspreet Barnes, JASON) sodium chloride (PF) (NS) flush 5 mL(Linked Group 2) 5 mL, Intravenous, Every 8 hours scheduled, First dose on Mon09/03/24 at 0600, Saline lock 0600 (Not Given - Provider: Kayla Mujica RN - Reason: Other)1400 (Given - Provider: Jaspreet Barnes, JASON) tiotropium bromide (SPIRIVA RESPIMAT) 2.5 mcg/actuation inhaler 2 puff(Linked Group 1) 2 puff, Inhalation, Daily (RT), First dose on Mon09/02/24 at 1999 1999 (Not Given - Provider: aKyla Mujica RN - Reason: Patient/family refused) 0917 (Given - Provider: Jaspreet Barnes, JASON) tiZANidine (ZANAFLEX) tablet 4 mg 4 mg, [...] (RT), First dose on Mon09/02/24 at 2000 And mometasone-formoterol (DULERA) 200-5 mcg/actuation inhaler 2 puffJump to med 2 puff, Inhalation, 2 times daily (RT), First dose on Mon09/02/24 at 2000 Group 2: Saline lock IV (CANCELED) Routine, [...] 81 mg, Oral, Daily, First dose on Mon09/22/24 at 0900 0845 (Given - Provider: Jaspreet Barnes, JASON) 0815 (Given - Provider: Anna Hairston) 0941 (Given - Provider: Berkley Back, JASON) azithromycin (ZITHROMAX) 250 mg in sodium chloride 0.9 % (NS) 250 mL IVPB (CANCELED) 250 mg, Intravenous, at 250 mL/hr, Every 24 hours scheduled, First dose on Mon09/22/24 at 2330, For 5 days, Indication: COPD Exacerbation 0955 (New Bag - Provider: Jaspreet Barnes, JASON) azithromycin (ZITHROMAX) tablet 250 mg 250 mg, Oral, Daily, First dose on Mon09/24/24 at 0900, For 3 doses, Indication: COPD Exacerbation 0816 (Given - Provider: Anna Hairston) 0941 (Given - Provider: Berkley Back, JASON) budesonide (PULMICORT) nebulizer solution 0.5 mg 0.5 mg, Nebulization, 2 times daily (RT), First dose on 09/21/24 at 2330 0751 (Given - Provider: Aye Marshall, NEWS GATHERING TECHNICIAN)1912 (Given - Provider: Bindu Watson RRT) 706 (Given - Provider: Negar Wood, NEWS GATHERING TECHNICIAN)2107 (Given - Provider: Delmy Brock, GILDA) 811 (Given - Provider: Malika Davila, GILDA) cefTRIAXone (ROCEPHIN) IVPB 2 g (premix) (CANCELED) 2,000 mg, Intravenous, at 100 mL/hr, Every 24 hours scheduled, First dose on 09/21/24 at 2330, Indication: CAP 0900 (New Bag - Provider: Jaspreet Barnes RN) cholecalciferol (vitamin D3) tablet 1,000 Units 1,000 Units, Oral, Daily, First dose on 09/22/24 at 0900 0845 (Given - Provider: Jaspreet Barnes RN) 0816 (Given - Provider: Anna aHirston) 0941 (Given - Provider: Berkley Back, RN) docusate sodium (COLACE) capsule 100 mg 100 mg, Oral, Daily, First dose on 09/22/24 at 0900, [] Hold for loose stools. DO NOT CRUSH OR CHEW. 0846 (Given - Provider: Jaspreet Barnes RN) 0900 (Not Given - Provider: Jaspreet Barnes RN - Reason: Other - Comment: patient refused) 0900 (Not Given - Provider: Berkley Back RN - Reason: Contraindicated) doxepin (SINEQUAN) capsule 100 mg 100 mg, Oral, Nightly, First dose on 09/22/24 at 0030, May cause QT interval prolongation. 2013 (Given - Provider: Prema Fowler, JASON) 2027 (Given - Provider: Lorna Velázquez RN) DULoxetine (CYMBALTA) DR capsule 60 mg 60 mg, Oral, Daily, First dose on 09/22/24 at 0900, DO NOT CRUSH OR CHEW. 0846 (Given - Provider: Jaspreet Barnes RN) 0815 (Given - Provider: Anna Hairston) 0941 (Given - Provider: Berkley Back, JASON) enoxaparin (LOVENOX) syringe 30 mg (CANCELED) 30 mg, Subcutaneous, Daily, First dose on 09/23/24 at 0900, Administer in abdomen unless otherwise directed by prescriber. Notify physician if patient refuses., Prophylaxis Indication: VTE Prophylaxis 0844 (Given - Provider: Jaspreet Barnes, JASON) enoxaparin (LOVENOX) syringe 40 mg 40 mg, Subcutaneous, Daily, First dose (after last modification) on Mon09/24/24 at 0900, Administer in abdomen unless otherwise directed by prescriber. Notify physician if patient refuses., Prophylaxis Indication: VTE Prophylaxis 1000 (Given - Provider: Anna Hairston - Comment: LLQ) 0941 (Given - Provider: Berkley Back, RN) ferrous sulfate tablet 325 mg 325 [...] Daily (in the evening), First dose on Mon09/22/24 at 0030, Avoid administration with soybean flour, cottonseed meal, walnuts, and dietary fiber. Administer at least 1 hour before breakfast. Hold continuous tube feeds for at least 1 hour before until 1 hour after each dose. Flush tube with 30mL of water before and after administration. Tube feed rate may need adjusted to meet caloric needs. 2013 (Given - Provider: Prema Fowler, JASON) 2027 (Given - Provider: Lorna Velázquez RN) lisinopriL (PRINIVIL,ZESTRIL) tablet 20 mg 20 mg, Oral, Daily, First dose on Mon09/22/24 at 1200, Hold for SBP<110 1353 (Given - Provider: Jaspreet Barnes, JASON) 1141 (Given - Provider: Anna Hairston) 1200 (Due) loratadine (CLARITIN) tablet 10 mg 10 mg, Oral, Daily, First dose on 11/17/24 at 0900 0844 (Given - Provider: Jaspreet Barnes RN) 1000 (Given - Provider: Anna Hairston) 0941 (Given - Provider: Berkley Back, JASON) methylPREDNISolone sod suc(PF) (SOLU-medrol) 40 mg () 40 mg, Intravenous, Every 8 hours scheduled, First dose on 09/21/24 at 2330, For 3 days 0537 (Given - Provider: Prema Fowler, JASON)1353 (Given - Provider: Jaspreet Barnes RN)2138 (Given - Provider: Prema oFwler RN) 0507 (Given - Provider: Prema Fowler RN)1340 (Given - Provider: Anna Hairston) metoprolol tartrate (LOPRESSOR) tablet 100 mg 100 mg, Oral, 2 times daily, First dose on 09/22/24 at 0030, Hold for HR<60 0845 (Given - Provider: Jaspreet Barnes RN)2013 (Given - Provider: Prema Fowler RN) 0815 (Given - Provider: Anna Hairston)2026 (Given - Provider: Lorna Velázquez RN) 0941 (Given - Provider: Berkley Back, JASON) NIFEdipine (PROCARDIA XL) 24 hr tablet 30 mg 30 mg, Oral, Daily, First dose on 09/22/24 at 0900, Hold for SBP<110 DO NOT CRUSH OR CHEW. 0845 (Given - Provider: Jaspreet Barnes RN) 0816 (Given - Provider: Anna Hairston) 0941 (Given - Provider: Berkley Back, JASON) pantoprazole (PROTONIX) EC tablet 40 mg 40 mg, Oral, Daily, First dose on 09/22/24 at 0900, DO NOT CRUSH OR CHEW. 0845 (Given - Provider: Jaspreet Barnes RN) 0815 (Given - Provider: Anna Hairston) 0941 (Given - Provider: Berkley Back, JASON) rifAXIMin (XIFAXAN) tablet 550 mg 550 mg, Oral, 3 times daily, First dose on Mon09/24/24 at 1500, For 14 days, Indication: IBS 1348 (Given - Provider: Anna Hairston - Comment: patient request)1499 (Canceled Entry - Provider: Jaspreet Barnes RN)2026 (Given - Provider: Lorna Velázquez, JASON) 0941 (Given - Provider: Berkley Back, RN) sodium chloride (PF) (NS) flush 5 mL(Linked Group 1) 5 mL, Intravenous, Every 8 hours scheduled, First dose on 09/22/24 at 0030, Saline lock 0600 (Given - Provider: Prema Fowler RN)1400 (Given - Provider: Jaspreet Barnes RN)2137 (Given - Provider: Prema Fowler RN) 0600 (Given - Provider: Prema Fowler RN)1400 (Given - Provider: Jaspreet Barnes RN)2026 (Given - Provider: Lorna Velázquez, JASON) 0626 (Given - Provider: Lorna Velázquez RN)1400 [...] at 2100 2013 (Given - Provider: Prema Fowler RN) 2026 (Given - Provider: Lorna Velázquez [...] Provider: Anna Hairston)1803 (Given - Provider: Jaspreet Barnes, RN) 0945 (Given - Provider: Berkley Back, JASON)1200 (Due) PRN Medication Order 09/23/2024 09/24/2024 09/25/2024 [...] at 1428 1446 (Given - Provider: Jaspreet Barnes, JASON) melatonin Tab 5 mg 5 mg, Oral, [...] RN) 0807 (Given - Provider: Marina Jarrett, JASON) atorvastatin (LIPITOR) tablet 10 mg 10 mg, Oral, Nightly, First dose on Gege 02/13/25 at 2345 2347 (Given - Provider: Reema Juarez RN) 2208 (Given - Provider: Carolyn Ryder, JASON) doxepin (SINEQUAN) capsule 100 mg 100 mg, Oral, Nightly, First dose on Gege 02/13/25 at 2345, May cause QT interval prolongation. 2347 (Given - Provider: Reema Juarez, JASON) 2208 (Given - Provider: Carolyn Ryder, JASON) [...] Gomez LPN)2355 (Given - Provider: Reema Juarez, JASON) 0541 (Given - Provider: Reema Juarez, RN)2209 (Given - Provider: Carolyn Ryder, RN) 0628 (Given - Provider: Carolyn Ryder, RN) DULoxetine (CYMBALTA) DR capsule 60 mg 60 mg, Oral, Daily, First dose on Mon02/14/25 at 0900, DO NOT CRUSH OR CHEW. 0916 (Given - Provider: Rachael Huffman, RN) 0838 (Given - Provider: Delmy Olmedo, JASON) 0807 (Given - Provider: Marina Jarrett, RN) furosemide (LASIX) injection 20 mg (COMPLETED) 20 mg, Intravenous, 2 times daily, First dose on Mon02/16/25 at 1230, For 3 doses, Administer IV push at 20 mg per minute (doses higher than 100 mg require IVPB) 1319 (Given - Provider: Rachael Huffman, RN)1802 (Given - Provider: Rachael Huffman, JASON) 0838 (Given - Provider: Delmy Olmedo, JASON) furosemide (LASIX) tablet 40 mg 40 mg, Oral, Daily, First dose on Mon02/18/25 at 0900 0807 (Given - Provider: Marina Jarrett, RN) heparin (porcine) injection 5,000 Units 5,000 Units, Subcutaneous, Every 8 hours scheduled, First dose on Mon02/13/25 at 2345, Notify physician if patient refuses. 0543 (Given - Provider: Carroll Gomez LPN)1318 (Given - Provider: Rachael Huffman RN)2349 (Given - Provider: Reema Juarez, JASON) 0542 (Given - Provider: Reema Juarez, RN)1400 (Not Given - Provider: Delmy Olmedo RN - Reason: Patient/family refused)2209 (Given - Provider: Carolyn Ryder, RN) 0628 (Given - Provider: Carolyn Ryder, RN)1400 (Not Given - Provider: Marina Jarrett RN - Reason: Patient/family refused) ipratropium-albuteroL (DUO-NEB) 0.5-2.5 mg/3 ml nebulizer solution 3 mL (CANCELED) 3 mL, Inhalation, Every 4 hours scheduled (RT), First dose on Mon02/14/25 at 0940 0423 (Given - Provider: Noris Jaramillo)0847 (Given - Provider: Alexandria Sanchez)1111 (Given - Provider: Alexandria Sanchez)1509 (Given - Provider: Esperanza Suggs, GILDA)1938 (Given - Provider: Noris Jaramillo) 0019 (Given - Provider: Noris Jaramillo)0328 (Given - Provider: Noris Jaramillo)0800 (Canceled Entry - Provider: Aleisha Pickett RRT - Comment: order changed) ipratropium-albuteroL (DUO-NEB) 0.5-2.5 [...] needs. 234 (Given - Provider: Reema Juarez, JASON) 2015 (Given - Provider: Carolyn Ryder, JASON) lisinopriL (PRINIVIL,ZESTRIL) tablet 20 mg 20 mg, Oral, Daily with lunch, First dose on Mon02/14/25 at 1200 1318 (Given - Provider: Rachael Huffman, JASON) 1127 (Given - Provider: Delmy Olmedo, RN) 1230 (Given - Provider: Marina Jarrett, RN) magnesium sulfate 2 g in sterile water (SW) 50 mL IVPB (COMPLETED) 2 g, Intravenous, at 50 mL/hr, Once, On Mon02/17/25 at 1145, For 1 dose 1134 (New Bag - Provider: Delmy Olmedo, RN)1142 (Rate/Dose Verify - Provider: Delmy Olmedo, JASON)1234 (Stopped - Provider: Delmy Olmedo, RN) metoprolol tartrate (LOPRESSOR) tablet 100 mg 100 mg, Oral, 2 times daily, First dose on Mon02/13/25 at 2345 0916 (Given - Provider: Rachael Huffman RN)2348 (Given - Provider: Reema Juraez, JASON) 0838 (Given - Provider: Delmy Olmedo, JASON)2209 (Given - Provider: Carolyn Ryder, JASON) 0824 (Given - Provider: Marina Jarrett, RN) mometasone-formoterol (DULERA) 200-5 mcg/actuation inhaler 2 puff(Linked Group 1) 2 puff, Inhalation, 2 times daily (RT), First dose on Mon02/14/25 at 0900 0931 (Given - Provider: Rachael Huffman RN)2346 (Given - Provider: Reema Juarez, AJSON) 0900 (Given - Provider: Delmy Olmedo, JASON)1999 [...] JASON) 0806 (Given - Provider: Marina Jarrett, JASON) pantoprazole (PROTONIX) EC tablet 40 mg 40 mg, Oral, Daily, First dose on Mon02/14/25 at 0900, DO NOT CRUSH OR CHEW. 0916 (Given - Provider: Rachael Huffman RN) 0838 (Given - Provider: Delmy Olmedo, JASON) 0807 (Given - Provider: Marina Jrarett, RN) predniSONE (DELTASONE) tablet 40 mg 40 mg, Oral, Daily with breakfast, First dose on 02/15/25 at 0800 0915 (Given - Provider: Rachael Huffman RN) 0837 (Given - Provider: Delmy Olmedo, JASON) 0808 (Given - Provider: Marina Jarrett, RN) senna-docusate (SENNA-S) 8.6-50 mg per tablet 1 tablet (CANCELED) 1 tablet, Oral, 2 times daily, First dose on 02/14/25 at 0900, NOT for abdominal surgery patients. [...] Pt IV infusing)1320 (Given - Provider: Rachael Huffman RN)2350 (Given - Provider: Reema Juarez RN) 0542 (Given - Provider: Reema Juarez RN)1400 (Not Given - Provider: Delmy Olmedo RN - Reason: Other - Comment: IV infusing)2217 (Given - Provider: Carolyn Ryder RN) 0628 (Given - Provider: Carolyn Ryder RN)1400 (Not Given - Provider: Marina Jarrett RN - Reason: Loss of IV access) sulfamethoxazole-trimetho prim (BACTRIM DS,SEPTRA DS) 800-160 mg per tablet 1 tablet 1 tablet, Oral, Every 12 hours scheduled, First dose on Mon02/16/25 at 1230, For 5 days, Indication: Travelers Diarrhea 1319 (Given - Provider: Rachael Huffman RN)2349 (Given - Provider: Reema Juarez RN) 0838 (Given - Provider: Delmy A Lincoln, RN)2216 (Given - Provider: Carolyn Ryder RN) 0807 [...] For 2 doses, Anginal pain, may repeat [id number] x2, then notify physician. DO NOT CRUSH [...] care, Starting on Gege 02/13/25 at 2303 sodium chloride 0.9% (NS)(Linked Group 5) 0-150 mL/hr, Intravenous, As needed, To flush line after IV infusions when no maintenance IV ordered or a compatibility issue. Infuse 20ml at the same rate as the secondary infusion, Starting on Gege 02/13/25 at 1634, Run as Primary IV. NOT intended for KVO. 1129 (New Bag - Provider: Delmy Olmedo, RN)1200 (Stopped - Provider: Carolyn Ryder RN) [...] line care, Starting on Mon02/13/25 at 2303 And sodium chloride (PF) (NS) flush 5 mLJump to med 5 mL, Intravenous, Every 8 hours scheduled, First dose on Mon02/13/25 at 2305, Saline lock And sodium chloride [...] Care Teams (unrecognized sec tion and content) Industrial Real Estate Agent Relationship Specialty Start Date End Date Jonathan Rutherford, SOLDERER [address] [place] [address] PCP - General Nurse Practitioner 11/02/20 Elana Pena, DO [address] [place] [address] Referring Physician Family Medicine 07/15/16 Jonathan Rutherford, SOLDERER [address] [place] [address] Referring Physician Nurse Practitioner 07/22/21 Industrial Real Estate Agent Relationship Specialty Start Date End Date Jonathan Rutherford SOLDERER [address] [place] [address] PCP - General Nurse Practitioner 11/02/20 Elana Pena, DO [address] [place] [address] Referring Physician Family Medicine 07/15/16 Jonathan Rutherford, SOLDERER [address] [place] [address] Referring Physician Nurse Practitioner 07/22/21 Industrial Real Estate Agent Relationship Specialty Start Date End Date Jonathan Rutherford SOLDERER [address] [place] [address] PCP - General Nurse Practitioner 11/02/20 Elana Pena, DO [address] [place] [address] Referring Physician Family Medicine 07/15/16 Jonathan Rutherford, SOLDERER [address] [place] [address] Referring Physician Nurse Practitioner 07/22/21 Industrial Real Estate Agent Relationship Specialty Start Date End Date Jonathan Rutherford, SOLDERER [address] [place] [address] PCP - General Nurse Practitioner 11/02/20 Elana Pena, DO [address] [place] [address] Referring Physician Family Medicine 07/15/16 Jonathan Rutherford, SOLDERER [address] [place] [address] Referring Physician Nurse Practitioner 07/22/21 Industrial Real Estate Agent Relationship Specialty Start Date End Date Jonathan Rutherford SOLDERER [address] [place] [address] PCP - General Nurse Practitioner 11/02/20 Elana Pena, DO [address] [place] [address] Referring Physician Family Medicine 07/15/16 Jonathan Rutherford, SOLDERER [address] [place] [address] Referring Physician Nurse Practitioner 07/22/21 Industrial Real Estate Agent Relationship Specialty Start Date End Date Jonathan Rutherford SOLDERER [address] [place] [address] PCP - General Nurse Practitioner 11/02/20 Elana Pena, DO [address] [place] [address] Referring Physician Family Medicine 07/15/16 Jonathan Rutherford, SOLDERER [address] [place] [address] Referring Physician Nurse Practitioner 07/22/21 Industrial Real Estate Agent Relationship Specialty Start Date End Date Jonathan Rutherford SOLDERER [address] [place] [address] PCP - General Nurse Practitioner 11/02/20 Elana Pena, DO [address] [place] [address] Referring Physician Family Medicine 07/15/16 Jonathan Rutherford, SOLDERER [address] [place] [address] Referring Physician Nurse Practitioner 07/22/21 Industrial Real Estate Agent Relationship Specialty Start Date End Date Jonathan Rutherford SOLDERER [address] [place] [address] PCP - General Nurse Practitioner 11/02/20 Jonathan Rutherford SOLDERER [address] [place] [address] Referring Physician Nurse Practitioner 07/22/21 Industrial Real Estate Agent Relationship Specialty Start Date End Date Jonathan Rutherford SOLDERER [address] [place] [address] PCP - General Nurse Practitioner 11/02/20 Jonathan Rutherford SOLDERER [address] [place] [address] Referring Physician Nurse Practitioner 07/22/21 Industrial Real Estate Agent Relationship Specialty Start Date End Date Jonathan Rutherford SOLDERER [address] [place] [address] PCP - General Nurse Practitioner 11/02/20 Jonathan Rutherford SOLDERER [address] [place] [address] Referring Physician Nurse Practitioner 07/22/21 Industrial Real Estate Agent Relationship Specialty Start Date End Date Jonathan Rutherford SOLDERER [address] [place] [address] PCP - General Nurse Practitioner 11/02/20 Jonathan Rutherford SOLDERER [address] [place] [address] Referring Physician Nurse Practitioner 07/22/21 Industrial Real Estate Agent Relationship Specialty Start Date End Date Jonathan Rutherford SOLDERER [address] [place] [address] PCP - General Nurse Practitioner 11/02/20 Jonathan Rutherford, SOLDERER [address] [place] [address] Referring Physician Nurse Practitioner 07/22/21 Industrial Real Estate Agent Relationship Specialty Start Date End Date Jonathan Rutherford SOLDERER [address] [place] [address] PCP - General Nurse Practitioner 11/02/20 Jonathan Rutherford SOLDERER [address] [place] [address] Referring Physician Nurse Practitioner 07/22/21 Industrial Real Estate Agent Relationship Specialty Start Date End Date Jonathan Rutherford SOLDERER [address] [place] [address] PCP - General Nurse Practitioner 11/02/20 Jonathan Rutherford, SOLDERER [address] [place] [address] Referring Physician Nurse Practitioner 07/22/21 Industrial Real Estate Agent Relationship Specialty Start Date End Date Jonathan Rutherford SOLDERER [address] [place] [address] PCP - General Nurse Practitioner 11/02/20 Joanthan Rutherford SOLDERER [address] [place] [address] Referring Physician Nurse Practitioner 07/22/21 Industrial Real Estate Agent Relationship Specialty Start Date End Date Jonathan RutherfordDonna, SOLDERER [address] [place] [address] PCP - General Nurse Practitioner 11/02/20 Wilfridyonis Jonathan BenitezDonna, SOLDERER [address] [place] [address] Referring Physician Nurse Practitioner 07/22/21 Industrial Real Estate Agent Relationship Specialty Start Date End Date Jonathan RutherfordDonna, SOLDERER [address] [place] [address] PCP - General Nurse Practitioner 11/02/20 Wilfridyonis Jonathan Monica SOLDERER [address] [place] [address] Referring Physician Nurse Practitioner 07/22/21 Industrial Real Estate Agent Relationship Specialty Start Date End Date WilfridbayronJonathan ruffinDonna, SOLDERER [address] [place] [address] PCP - General Nurse Practitioner 11/02/20 Wilfridyonis Jonathan L., SOLDERER [address] [place] [address] Referring Physician Nurse Practitioner 07/22/21 Industrial Real Estate Agent Relationship Specialty Start Date End Date Jonathan Rutherford FNP [address] [place] [address] PCP - General Nurse Practitioner 11/23/20 Industrial Real Estate Agent Relationship Specialty Start Date End Date Jonathan Rutherford FNP [address] [place] [address] PCP - General Nurse Practitioner 11/23/20 Industrial Real Estate Agent Relationship Specialty Start Date End Date Jonahtan Rutherford FNP [address] [id number] PCP - General Nurse Practitioner 11/23/20 Team Status: Active Member Role Status Dates Dr. Jennifer Gordon MD Primary Care Provider Active Team Status: Inactive Member Role Status Dates Dr. Rusty Dozier MD Attending Provider Active Team Status: Inactive Member Role Status Dates Jonathan Rutherford GRAIN CLEANER, GRAIN CLEANER-C Referring Provider Active Dr. Jennifer Grodon MD Primary Care Provider, Attendi ng Provider Active Team Status: Inactive Member Role Status Dates Jonathan Rutherford GRAIN CLEANER, GRAIN CLEANER-C Primary Care Provider Active Dr. Rusty Dozier MD Attending Provider, Referring Provider Active Team Status: Inactive Member Role Status Dates Dr. Jennifer Gordon MD Primary Care Provider Active Dr. Rusty Dozier MD Attending Provider, Referring Provider Active Team Status: Active Member Role Status Dates Dr. Jennifer Gordon MD Primary Care Provider Active EJGIA KENDALL Attending Provider Active Team Status: Active Member [...] Jennifer Gordon MD Primary Care Provider Active EJGIA Attending Provider Active Team Status: Inactive Member Role Status Dates Dr. Rusty Dozier MD Attending Provider Active Dr. Jennifer Gordon MD Primary Care Provider, Referri ng Provider Active Team Status: Active Member Role Status Dates Dr. Jennifer Gordon MD Primary Care Provider Active Dr. Oscar Arshad MD Attending Provider Active Dr. Rusty Dozier MD Referring Provider Active Industrial Real Estate Agent Relationship Specialty Start Date End Date Jonathan Rutherford Uriah, DRAMATIC TEACHER [address] [place] [address] PCP - General Nurse Practitioner 11/23/20 Team Status: Inactive Member Role Status Dates Dr. Jennifer Gordon MD Primary Care Provider, Referri ng Provider Active Sasha Heredia GRAIN CLEANER, GRAIN CLEANER-C Attending Provider Active Team Status: Inactive Member [...] Gordon MD Primary Care Provider Active Aleisha SANCHEZ PA Referring Provider, Other Provider Active Dr. Melvin Oshea MD Attending Provider Active Team Status: Inactive Member Role Status Dates Dr. Jennifer Gordon MD Primary Care Provider Active Aleisha SANCHEZ, PA Attending Provider, Referr ing Provider Active Team Status: Active Member Role Status Dates Dr. Jennifer Gordon MD Primary Care Pro vider, Attending Provider, Referring Provider Active Team Status: Inactive Member Role Status Dates Sasha Heredia GRAIN CLEANER, GRAIN CLEANER-C Attending Provider, Referrin g Provider Active Dr. Jennifer Gordon MD Primary Care Provider Active Industrial Real Estate Agent Relationship Specialty Start Date End Date Jonatahn Rutherford CNP [address] [place] [address] PCP - General Nurse Practitioner 11/02/20 Jonathan Rutherford, RUIZ [address] [facility] [place] [address] Referring Physician Nurse Practitioner 07/22/21 Industrial Real Estate Agent Relationship Specialty Start Date End Date Jonathan Rutherford, SOLDERER [address] [place] [address] PCP - General Nurse Practitioner 11/02/20 Jonathan Rutherford, SOLDERER [address] [id number] Referring Physician Nurse Practitioner 07/22/21 Industrial Real Estate Agent Relationship Specialty Start Date End Date Jonathan Rutherford, DRAMATIC TEACHER [address] [place] [address] PCP - General Nurse Practitioner 11/23/20 Team [...] MD Attending Provider, Referri ng Provider Active Industrial Real Estate Agent Relationship Specialty Start Date End Date Jonathan Rutherford, DRAMATIC TEACHER [address] [place] [address] PCP - General Nurse Practitioner 11/23/20 Team Status: Inactive Member Role Status Dates Dr. Jennifer Gordno MD Primary Care Provider, Referri ng Provider Active Dr. Cristian Joseph DO Attending Provider Active Team Status: Active Member Role Status Dates Dr. Jennifer Gordon MD Primary Care Provider, Attendi ng Provider Active Team Status: Inactive Member Role Status Dates Dr. Jennifer Gordon MD Primary Care Provider Active Dr. Cristian Joseph DO Attending Provider, Referring Pro vider Active Industrial Real Estate Agent Relationship Specialty Start Date End Date WilfridJonathan somers, SOLDERER [address] [place], [place] [id number] PCP - General Nurse Practitioner 11/02/20 Jonathan Rutherford, SOLDERER [address] [place] [address] Referring Physician Nurse Practitioner 07/22/21 Industrial Real Estate Agent Relationship Specialty Start Date End Date No, Physician [facility] PCP - General 09/02/24 Industrial Real Estate Agent Relationship Specialty Start Date End Date No, Physician [facility] PCP - General 09/02/24 Industrial Real Estate Agent Relationship Specialty Start Date End Date No, Physician [facility] PCP - General 09/02/24 Industrial Real Estate Agent Relationship Specialty Start Date End Date No, Physician [facility] PCP - General 09/02/24 Industrial Real Estate Agent Relationship Specialty Start Date End Date No, Physician [facility] PCP - General 09/02/24 Industrial Real Estate Agent Relationship Specialty Start Date End Date Jonathan Rutherford FNP [address] [place], [place] [id number] PCP - General Nurse Practitioner 11/23/20 Industrial Real Estate Agent Relationship Specialty Start Date End Date No, Physician [facility] PCP - General 09/02/24 Team Status: Inactive [...] February 03, 2025 End: February 03, 2025 Industrial Real Estate Agent Relationship Specialty Start Date End Date No, Physician [facility] PCP - General 09/02/24 Jennifer Sterling [place] Primary Care Physician 02/17/25 Team Status: Inactive [...] Active Start: April 17, 2025 Sasha Heredia GRAIN CLEANER, GRAIN CLEANER-C Attending Provider Active Start: April 17, 2025 Sasha Heredia GRAIN CLEANER, GRAIN CLEANER-C Referring Provider Active Start: April 17, 2025 Team Status: Inactive Member Role Status Dates Dr. Jennifer Gordon MD Primary Care Provider Active Start: April 17, 2025 End: April 17, 2025 Sasha Heredia GRAIN CLEANER, GRAIN CLEANER-C Attending Provider Active Start: April 17, 2025 End: April 17, 2025 Sasha Heredia GRAIN CLEANER, GRAIN CLEANER-C Referring Provider Active Start: April 17, 2025 End: April 17, 2025 Industrial Real Estate Agent Relationship Specialty Start Date End Date No, Physician [facility] PCP - General 09/02/24 Jennifer Sterling [place] Primary Care Physician 02/17/25 Industrial Real Estate Agent Relationship Specialty Start Date End Date Not On File, Doctor Medical Staff Office [address] [place] [address] PCP - General Unknown Physician Specialty 04/14/25 [...] 2025 End: March 27, 2025 Dr. Rusty Dzoier MD Attending Provider Active Start: March 27, [...] 2025 End: April 17, 2025 Sasha Heredia GRAIN CLEANER, GRAIN CLEANER-C Attending Provider Active Start: April 17, 2025 End: April 17, 2025 Sasha Heredia GRAIN CLEANER, GRAIN CLEANER-C Referring Provider Active Start: April 17, 2025 [...] May 07, 2025 End: May 07, 2025 Industrial Real Estate Agent Relationship Specialty Start Date End Date Not On File, Doctor Medical Staff Office [address] [place] [id number] PCP - General Unknown Physician Specialty 04/14/25 Industrial Real Estate Agent Relationship Specialty Start Date End Date Not On File, Doctor Medical Staff Office [address] [place] [id number] PCP - General Unknown Physician Specialty 04/14/25 [...] 2025 End: April 17, 2025 Sasha Heredia GRAIN CLEANER, GRAIN CLEANER-C Attending Provider Active Start: April 17, 2025 End: April 17, 2025 Sasha Heredia GRAIN CLEANER, GRAIN CLEANER-C Referring Provider Active Start: April 17, 2025 [...] 2025 End: April 17, 2025 Sasha Heredia GRAIN CLEANER, GRAIN CLEANER-C Attending Provider Active Start: April 17, 2025 End: April 17, 2025 Sasha Heredia GRAIN CLEANER, GRAIN CLEANER-C Referring Provider Active Start: April 17, 2025 [...] 2025 End: June 17, 2025 Colette Black GRAIN CLEANER-C Attending Provider Active Start: June 17, 2025 End: June 17, 2025 Team Status: Active Member Role/Relationship Status Dates Dr. Jennifer Gordon MD Primary Care Provider Active Start: June 24, 2025 Colette Black NP-C Attending Provider Active Start: June 24, 2025 Colette Black NP-C Referring Provider Active Start: June 24, 2025 Team Status: Inactive Member Role/Relationship Status Dates Dr. Jennifer Gordon MD Primary Care Provider Active Start: June 26, 2025 End: June 26, 2025 Dr. Jennifer Gordon MD Referring Provider Active Start: June 26, 2025 End: June 26, 2025 Mihaela Simpson GRAIN CLEANER-C Attending Provider Active Start: June 26, 2025 [...] 2025 End: April 17, 2025 Sasha Heredia GRAIN CLEANER, GRAIN CLEANER-C Attending Provider Active Start: April 17, 2025 End: April 17, 2025 Sasha Heredia GRAIN CLEANER, GRAIN CLEANER-C Referring Provider Active Start: April 17, 2025 [...] 2025 End: June 24, 2025 Colette Black GRAIN CLEANER-C Attending Provider Active Start: June 24, 2025 [...] 2025 End: June 26, 2025 Mihaela Simpson GRAIN CLEANER-C Attending Provider Active Start: June 26, 2025 End: June 26, 2025 Team Status: Active Member Role/Relationship Status Dates Dr. Jennifer Gordon MD Primary Care Provider Active Start: June 26, 2025 Mihaela Simpson , GRAIN CLEANER-C Attending Provider Active Start: June 26, 2025 Mihaela Simpson , GRAIN CLEANER-C Referring Provider Active Start: June 26, 2025 Team Status: Inactive Member Role/Relationship Status Dates Dr. Jennifer Gordon MD Primary Care Provider Active Start: June 26, 2025 End: June 26, 2025 Mihaela Sterlingr , GRAIN CLEANER-C Attending Provider Active Start: June 26, 2025 End: June 26, 2025 Mihaela Crewsereryanne , GRAIN CLEANER-C Referring Provider Active Start: June 26, 2025 End: June 26, 2025 Team Status: Active Member Role/Relationship Status Dates Dr. Jennifer Gordon MD Primary Care Provider Active Start: July 11, 2025 Colette Black NP-C Attending Provider Active Start: July 11, 2025 Colette Black BARBARA-John Referring Provider Active Start: July 11, 2025 Team Status: Active Member Role/Relationship Status Dates Dr. Jennifer Gordon MD Primary Care Provider Active Start: July 17, 2025 Dr. Ramakrishna Maher MD Emergency Provider Active Sta rt: July 17, 2025 Dr. Elana Deshpande , Admit Provider Active Start: July 17, 2025 Dr. Elana Deshpande , Attending Provider Active Start: July 17, 2025 Goals (unrecognized section and content) Goals [...] BE BASED ON THE PRIMARY CLINICAL RECORDS. [facility] [employer] [facility]. provides no warranty or guarantee of the accuracy or completeness of information in this document.
[2025-07-18 01:50] LABS: Mucous, Urine 0 SEEN /hpf (<or=2+)
[2025-07-18 01:52] LABS: Color, Urine Straw (Yellow); Glucose, Dipstick Normal (Normal); Ketone-Dipstick Negative (Negative); Leukocyte Esterase-Dipstick Negative /ul (Negative); Nitrite-Dipstick Negative (Negative); Occult Blood-Urine Negative /ul (Negative); Protein-Dipstick 30 mg/dl (Negative); Specific Gravity, Urine 1.010 (1.002-1.030); Urine Bilirubin Dipstick Negative (Negative)
[2025-07-18 02:09] LABS: Red Blood Cells-Urine 0-5 SEEN /hpf (0-5); Squamous Epithelial Cells - UA 0-5 SEEN /hpf (5-10)
[2025-07-18 05:50] LABS: Hematocrit 31.0 % (37-47); Hemoglobin 9.7 g/dL (12.0-15.0); Immature Granulocytes Count 0.010 X10^3/uL (0.0-0.0); Mean Corp Hgb Conc 31.3 g/dL (32-36); Mean Corpuscular Volume 85.4 fL (81-99); Mean Platelet Vol. 9.8 fl (6.2-12.0); NRBC Flagged by Analyzer 0 % (0-5); Platelet Count 210 K/mm3 (150-450); RBC Distribution Width CV 12.9 % (11.6-14.6); RBC Distribution Width SD 39.8 fl (35.1-43.9); Red Blood Count 3.63 M/mm3 (4.2-5.4); White Blood Count 6.4 K/mm3 (4.4-11.0)
[2025-07-18] MEDS: Budesonide Respules 0.5 MG/2 ML AMPUL.NEB. INHALATION ×2 (06:57→17:02)
[2025-07-18 07:08] LABS: AST(SGOT) 27 U/L (<=31); Alanine Aminotransfer ALT/SGPT 13 U/L (<=34); Albumin, Serum 3.5 g/dL (3.4-4.8); Alkaline Phosphatase 81 U/L (35-104); Anion Gap 10 (5-15); BUN 19 mg/dL (4-19); BUN/Creat Ratio 11.8 RATIO (10-20); Calcium,Total 8.6 mg/dL (7.6-11.0); Carbon Dioxide 25.8 mmol/L (21.0-32.0); Chloride 94 mmol/L (98-108); Estimated Creatinine Clearance 40.82 ml/min (50-250); Globulin 2.8 g/dL (2.2-4.2); Glucose 138 mg/dL (70-99); Potassium 4.4 mmol/L (3.3-5.1)
[2025-07-18] MEDS: Aspirin E.C. 81 MG Tablet PO (09:32)
[2025-07-18] MEDS: NIFEdipine 30 MG Tablet PO (09:32)
[2025-07-18] MEDS: Cholecalciferol (VIT D3) 25 MCG TABLET (1,000 UNITS) 50 MCG PO (09:33)
[2025-07-18] MEDS: Heparin Injection (Vial) 5,000 UNIT/ML VIAL 5000 UNIT SC ×2 (09:33→20:56)
--- NOTE | 2025-07-18 11:00 | CASEMGMT ---
JASON JHAVERI Assessment: Face to Face with pt for initial transition planning/care coordination assessment. JASON JHAVERI introduced self and role at [facility], pt voices understanding and consents to assessment. Pt is A&O x4 and answers all questions appropriately at this time. Pt lying in bed in no distress on oxygen. Care providers, pharmacy, and demographics verified/updated. 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 Pt reports she is I in ADLs and her granddtr and dtr assist with IADLS. Pt gets her own groceries as she orders them online and picks up at store. Pt denies concerns at home. Transportation: Pt drives self and denies concerns with transportation. DME:O2 through [facility] HHC/SNF: Denies hx of HHC and pt has had SNF stay very remotely and cannot recall name of facility. Pt states no concerns with going home at time of dc. Pt states she and her granddtr are working on her granddtr becoming her paid aide through the waiver program. Pt states that her PCP is working with [facility] to get a shower chair. Pt states her family can bring in a portable oxygen tank upon dc to go home on. Pt denies need for any home therapy or services. Pt states no further concerns/needs. CM to follow. Advised pt to ask CM if any further questions/concerns/needs arise, voices understanding. Pt Goal: Home Plan: Home, follow for change in oxygen rx Green sheet on chart for increased oxygen rx Jayashree GOMEZ CM Handoff given to GRANTS ASSISTANT CM
--- NOTE | 2025-07-18 14:01 | PCM.PN.HOSP ---
Subjective Subjective Feels better than when she came in, no issues overnight Objective Data Objective Data Vital Signs: Vital Signs Temp Pulse Resp BP Pulse Ox O2 Del Method O2 Flow Rate 96.9 F L 70 18 147/83 H 98 Room Air 2 07/18/25 10:00 07/18/25 13:02 07/18/25 13:02 07/18/25 10:00 07/18/25 10:00 07/18/25 10:00 07/18/25 10:00 Oxygen Flow Rate (L/min) 2 Oxygen Delivery Method Room Air Weight: 221 lb 5.506 oz Body Mass Index (BMI) 36.8 Intake & Output: Intake and Output for Last 24 Hours 07/17/25 07/18/25 07/19/25 03:59 03:59 03:59 Intake Total 752.1250 / 752.1250 1769.2500 / 1769.2500 Output Total 300 / 300 Balance 752.1250 / 752.1250 1469.2500 / 1469.2500 Lab / Micro Data 07/18/25 05:10 07/18/25 05:10 Labs: Laboratory Results - last 24 hr 07/17/25 20:56: WBC 7.7, RBC 4.12 L, Hgb 11.0 L, Hct 35.4 L, MCV 85.9, MCH 26.7 L, MCHC 31.1 L, RDW Std Deviation 41.0, RDW Coeff of Esvin 13.2, Plt Count 254, MPV 10.1, Immature Gran % (Auto) 0.300, Neut % (Auto) 72.5 H, Lymph % (Auto) 18.0 L, [place] % (Auto) 6.6, Eos % (Auto) 1.6, Baso % (Auto) 1.0, Absolute Neuts (auto) 5.6, Absolute Lymphs (auto) 1.39, Nucleated RBC % 0, Sodium 130 L, Potassium 5.9 H, Chloride 94 L, Carbon Dioxide 26.8, Anion Gap 9, BUN 21 H, Creatinine 1.73 H, Estim Creat Clear Calc 37.32 L, Est GFR (MDRD) Non-Af 32 L, BUN/Creatinine Ratio 11.9, Glucose 88, Lactic Acid < 1.0, Calcium 8.7, Total Bilirubin 0.20, AST 35 H, ALT 16, Alkaline Phosphatase 89, Total Creatine Kinase 401 H, Total Protein 7.1, Albumin 3.9, Globulin 3.2, Albumin/Globulin Ratio 1.2 07/18/25 00:10: Sodium 131 L, Potassium 4.8, Chloride 94 L, Carbon Dioxide 27.6, Anion Gap 9, BUN 20 H, Creatinine 1.70 H, Estim Creat Clear Calc 37.57 L, Est GFR (MDRD) Non-Af 33 L, BUN/Creatinine Ratio 11.7, Glucose 137 H, Calcium 8.8, Magnesium 2.1 07/18/25 01:30: Urine Color Straw, Urine Clarity Clear, Urine pH 7.0, Ur Specific [place] 1.010, Urine Protein 30 H, Urine Glucose (UA) Normal, Urine Ketones Negative, Urine Occult Blood Negative, Urine Nitrite Negative, Urine Bilirubin Negative, Urine Urobilinogen Normal, Ur Leukocyte Esterase Negative, Urine RBC 0-5 SEEN, Urine WBC 0-5 SEEN, Ur Squamous Epith Cells 0-5 SEEN, Urine Bacteria 0 SEEN, Urine Mucus 0 SEEN 07/18/25 05:10: WBC 6.4, RBC 3.63 L, Hgb 9.7 L, Hct 31.0 L, MCV 85.4, MCH 26.7 L, MCHC 31.3 L, RDW Std Deviation 39.8, RDW Coeff of Esvin 12.9, Plt Count 210, MPV 9.8, Immature Gran % (Auto) 0.200, Neut % (Auto) 63.7, Lymph % (Auto) 24.1, [place] % (Auto) 8.2, Eos % (Auto) 3.0, Baso % (Auto) 0.8, Absolute Neuts (auto) 4.1, Absolute Lymphs (auto) 1.55, Nucleated RBC % 0, Sodium 129 L, Potassium 4.4, Chloride 94 L, Carbon Dioxide 25.8, Anion Gap 10, BUN 19, Creatinine 1.57 H, Estim Creat Clear Calc 40.82 L, Est GFR (MDRD) Non-Af 36 L, BUN/Creatinine Ratio 11.8, Glucose 138 H, Calcium 8.6, Phosphorus 3.6, Total Bilirubin < 0.15, AST 27, ALT 13, Alkaline Phosphatase 81, Total Protein 6.3, Albumin 3.5, Globulin 2.8, Albumin/Globulin Ratio 1.2, TSH 0.077 L Physical Exam Narrative General: Alert, Oriented x3, Cooperative, No apparent distress HEENT: Atraumatic, PERRLA, EOMI, Normocephalic Oral: Moist Mucosa Neck: Supple, No JVD Lungs: Diminished, Normal air movement, No rhonchi, No wheeze, No rales Cardiovascular: Regular rate, Regular Rhythm, Normal S1, Normal S2, No murmurs Abdomen: Soft, Non Tender, Non-Distended, No Hepato-splenomegaly Extremities: No edema, Capillary Refill Less than 3 Seconds Skin: No rashes, No breakdown Musculoskeletal: No Tenderness to Palpation of Joints or Extremities Neurological: No focal neurological deficits, moves all extremities Psych/Mental Status: Normal Affect, Appropriate Assessment & Plan Assessment/Plan (1) Carnitine palmitoyltransferase II deficiency: (2) Myalgia: (3) Generalized weakness: PLAN: Plan 1. 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 She states this happens about every 2 months ? She was diagnosed in her 30s ? She sees a tire beader maker at [facility] ? Continue with D10 half-normal saline 2. Essential HTN/HLD/CAD/PAD/history of NSVT ? Continue with her home blood pressure medications ? Will monitor make adjustments as necessary ? Continue with lovastatin ? Continue with aspirin 3. Hypothyroidism ? Stable this is status post thyroidectomy ? Continue with Synthroid ? Will have her follow-up with her machine tester as her TSH is low we will likely need to cut back on Synthroid dosing, will order T3 4. CKD 4 ? Stable ? Continue to monitor renal function which is at baseline 5. Iron deficiency anemia ? Stable ? Continue replacement 6. Anxiety/depression ? Stable ? Continue with medications 7. GERD ? Stable ? Continue with PPI DVT: Heparin Charges/Coding Visit Charges Inpatient E&M: 55288 Subs Hosp L2
[2025-07-18 16:12] LABS: Free T3 2.6 pg/mL (2.18-3.98)
--- NOTE | 2025-07-18 23:18 | CPS ---
PATIENT REFUSED PAP THERAPY FOR NIGHT TIME USE, DOES NOT WEAR AT HOME.
[2025-07-19] VITALS (14 sets, daily range): BP systolic 146–190; BP diastolic 50–91; PULSE 57–77; RESP 15–20; TEMP 36.5–37.2; O2SAT 96–100; BMI 37.3
[2025-07-19] MEDS: Sodium Chloride 19.25 MEQ in Dextrose 10%-Water 250 ML 150 MEQ IV ×12 (00:07→22:51)
[2025-07-19 06:15] LABS: Hematocrit 32.2 % (37-47); Hemoglobin 10.1 g/dL (12.0-15.0); Immature Granulocytes Count 0.010 X10^3/uL (0.0-0.0); Mean Corp Hgb Conc 31.4 g/dL (32-36); Mean Corpuscular Volume 85.2 fL (81-99); Mean Platelet Vol. 10.0 fl (6.2-12.0); NRBC Flagged by Analyzer 0 % (0-5); Platelet Count 191 K/mm3 (150-450); RBC Distribution Width CV 12.8 % (11.6-14.6); RBC Distribution Width SD 39.4 fl (35.1-43.9); Red Blood Count 3.78 M/mm3 (4.2-5.4); White Blood Count 5.1 K/mm3 (4.4-11.0)
[2025-07-19] MEDS: Budesonide Respules 0.5 MG/2 ML AMPUL.NEB. INHALATION ×2 (06:52→20:44)
[2025-07-19 06:58] LABS: Anion Gap 9 (5-15); BUN 13 mg/dL (4-19); BUN/Creat Ratio 9.2 RATIO (10-20); Calcium,Total 8.6 mg/dL (7.6-11.0); Carbon Dioxide 25.5 mmol/L (21.0-32.0); Chloride 97 mmol/L (98-108); Estimated Creatinine Clearance 47.08 ml/min (50-250); Glucose 128 mg/dL (70-99); Potassium 4.6 mmol/L (3.3-5.1)
[2025-07-19 07:06] LABS: CPK Total, Creatine Kinase 128 U/L (24-195)
[2025-07-19] MEDS: Aspirin E.C. 81 MG Tablet PO (08:47)
[2025-07-19] MEDS: Cholecalciferol (VIT D3) 25 MCG TABLET (1,000 UNITS) 50 MCG PO (08:48)
[2025-07-19] MEDS: NIFEdipine 30 MG Tablet PO (08:49)
[2025-07-19] MEDS: Heparin Injection (Vial) 5,000 UNIT/ML VIAL 5000 UNIT SC ×2 (08:55→22:06)
--- NOTE | 2025-07-19 12:08 | PCM.PN.HOSP ---
Subjective Subjective Doing well, feels better. CPK is improved Objective Data Objective Data Vital Signs: Vital Signs Temp Pulse Resp BP Pulse Ox O2 Del Method O2 Flow Rate 97.7 F L 64 15 166/77 H 97 Nasal Cannula 2 07/19/25 09:02 07/19/25 09:02 07/19/25 09:02 07/19/25 09:02 07/19/25 09:02 07/19/25 09:03 07/19/25 09:02 Oxygen Flow Rate (L/min) 2 Oxygen Delivery Method Nasal Cannula Weight: 223 lb 15.834 oz Body Mass Index (BMI) 37.3 Intake & Output: Intake and Output for Last 24 Hours 07/18/25 07/19/25 07/20/25 03:59 03:59 03:59 Intake Total 752.1250 / 752.1250 4137.5375 / 4137.5375 1014.2500 / 1014.2500 Output Total 300 / 300 Balance 752.1250 / 752.1250 3837.5375 / 3837.5375 1014.2500 / 1014.2500 Lab / Micro Data 07/19/25 05:33 07/19/25 05:33 Labs: Laboratory Results - last 24 hr 07/18/25 05:10: Free T3 pg/dL 2.6 07/19/25 05:33: WBC 5.1, RBC 3.78 L, Hgb 10.1 L, Hct 32.2 L, MCV 85.2, MCH 26.7 L, MCHC 31.4 L, RDW Std Deviation 39.4, RDW Coeff of Esvin 12.8, Plt Count 191, MPV 10.0, Immature Gran % (Auto) 0.200, Neut % (Auto) 63.2, Lymph % (Auto) 24.7, [place] % (Auto) 8.3, Eos % (Auto) 2.6, Baso % (Auto) 1.0, Absolute Neuts (auto) 3.2, Absolute Lymphs (auto) 1.25, Nucleated RBC % 0, Sodium 131 L, Potassium 4.6, Chloride 97 L, Carbon Dioxide 25.5, Anion Gap 9, BUN 13, Creatinine 1.37 H, Estim Creat Clear Calc 47.08 L, Est GFR (MDRD) Non-Af 42 L, BUN/Creatinine Ratio 9.2 L, Glucose 128 H, Calcium 8.6, Phosphorus 3.6, Total Creatine Kinase 128 Physical Exam Narrative General: Alert, Oriented x3, Cooperative, No apparent distress HEENT: Atraumatic, PERRLA, EOMI, Normocephalic Oral: Moist Mucosa Neck: Supple, No JVD Lungs: Diminished, Normal air movement, No rhonchi, No wheeze, No rales Cardiovascular: Regular rate, Regular Rhythm, Normal S1, Normal S2, No murmurs Abdomen: Soft, Non Tender, Non-Distended, No Hepato-splenomegaly Extremities: No edema, Capillary Refill Less than 3 Seconds Skin: No rashes, No breakdown Musculoskeletal: No Tenderness to Palpation of Joints or Extremities Neurological: No focal neurological deficits, moves all extremities Psych/Mental Status: Normal Affect, Appropriate Assessment & Plan Assessment/Plan (1) Carnitine palmitoyltransferase II deficiency: (2) Myalgia: (3) Generalized weakness: PLAN: Plan 1. 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 She states this happens about every 2 months ? She was diagnosed in her 30s ? She sees a animal care service worker at [facility] ? Continue with D10 half-normal saline ? Continue with her home levocarnitine 2. Essential HTN/HLD/CAD/PAD/history of NSVT ? Continue with her home blood pressure medications ? Will monitor make adjustments as necessary ? Continue with lovastatin ? Continue with aspirin 3. Hypothyroidism ? Stable this is status post thyroidectomy ? Continue with Synthroid ? Her TSH is low, however T3 is normal at 2.6 4. CKD 4 ? Stable ? Continue to monitor renal function which is at baseline 5. Iron deficiency anemia ? Stable ? Continue replacement 6. Anxiety/depression ? Stable ? Continue with medications 7. GERD ? Stable ? Continue with PPI DVT: Heparin Charges/Coding Visit Charges Inpatient E&M: 30603 Subs Hosp L2
--- NOTE | 2025-07-19 16:20 | EKG12_ITS ---
Test Reason : Blood Pressure : */* mmHG Vent. Rate : 61 BPM Atrial Rate : 61 BPM P-R Int : 166 ms QRS Dur : 92 ms QT Int : 410 ms P-R-T Axes : 77 50 68 degrees QTcB Int : 412 ms Normal sinus rhythm Normal ECG When compared with ECG of 17-Jul-2025 20:48, No significant change was found Confirmed by Guillermo Boykin ([id number]), editorial manager NORAH GOTTI ([id number]) on 07/21/2025 1:28:49 PM Referred By: Confirmed By: Guillermo Boykin
[2025-07-19] MEDS: 0.9% Saline Lock 10 ML Syringe IV ×3 (17:16→23:18)
--- NOTE | 2025-07-19 21:26 | NURSING ---
This RN taking over care at this time
[2025-07-19] MEDS: DOXEPIN HCL 50 MG CAPSULE 100 MG PO (23:54)
[2025-07-20] VITALS (8 sets, daily range): BP systolic 120–177; BP diastolic 55–79; PULSE 55–76; RESP 16–18; TEMP 36.7–37.1; O2SAT 96–99; BMI 36.7
[2025-07-20] MEDS: Furosemide 20 MG/2 ML VIAL IV (00:13)
[2025-07-20] MEDS: 0.9% Saline Lock 10 ML Syringe IV ×2 (00:13→05:55)
[2025-07-20 06:30] LABS: Hematocrit 32.6 % (37-47); Hemoglobin 10.4 g/dL (12.0-15.0); Immature Granulocytes Count 0.030 X10^3/uL (0.0-0.0); Mean Corp Hgb Conc 31.9 g/dL (32-36); Mean Corpuscular Volume 84.2 fL (81-99); Mean Platelet Vol. 10.1 fl (6.2-12.0); NRBC Flagged by Analyzer 0 % (0-5); Platelet Count 238 K/mm3 (150-450); RBC Distribution Width CV 13.2 % (11.6-14.6); RBC Distribution Width SD 40.2 fl (35.1-43.9); Red Blood Count 3.87 M/mm3 (4.2-5.4); White Blood Count 6.9 K/mm3 (4.4-11.0)
[2025-07-20 06:58] LABS: Anion Gap 10 (5-15); BUN 12 mg/dL (4-19); BUN/Creat Ratio 8.2 RATIO (10-20); Calcium,Total 9.0 mg/dL (7.6-11.0); Carbon Dioxide 26.4 mmol/L (21.0-32.0); Chloride 94 mmol/L (98-108); Estimated Creatinine Clearance 43.55 ml/min (50-250); Glucose 97 mg/dL (70-99); Potassium 4.6 mmol/L (3.3-5.1)
[2025-07-20] MEDS: Budesonide Respules 0.5 MG/2 ML AMPUL.NEB. INHALATION (07:20)
--- NOTE | 2025-07-20 07:45 | PN.HOSP_ITS ---
Reason for Visit Chief Complaint: Flare of CPT-2 with Muscle Aches and Pains. Objective Data Objective Data Vital Signs: Vital Signs Temp Pulse Resp BP Pulse Ox O2 Del Method O2 Flow Rate 98.7 F 76 18 177/79 H 99 Nasal Cannula 4 07/20/25 05:50 07/20/25 07:21 07/20/25 07:21 07/20/25 05:50 07/20/25 07:21 07/20/25 07:21 07/20/25 07:21 Oxygen Flow Rate (L/min) 4 Oxygen Delivery Method Nasal Cannula Weight: 220 lb 14.451 oz Body Mass Index (BMI) 36.7 Intake & Output: Intake and Output for Last 24 Hours 07/18/25 07/19/25 07/20/25 23:59 23:59 23:59 Intake Total 3898.4125 / 3898.4125 4642.4375 / 4642.4375 0 / 0 Output Total 300 / 300 Balance 3598.4125 / 3598.4125 4642.4375 / 4642.4375 0 / 0 Lab / Micro Data 07/20/25 05:34 07/20/25 05:34 Labs: Laboratory Results - last 24 hr 07/20/25 05:34: WBC 6.9, RBC 3.87 L, Hgb 10.4 L, Hct 32.6 L, MCV 84.2, MCH 26.9 L, MCHC 31.9 L, RDW Std Deviation 40.2, RDW Coeff of Esvin 13.2, Plt Count 238, MPV 10.1, Immature Gran % (Auto) 0.400, Neut % (Auto) 67.9, Lymph % (Auto) 21.1, [place] % (Auto) 7.2, Eos % (Auto) 2.7, Baso % (Auto) 0.7, Absolute Neuts (auto) 4.7, Absolute Lymphs (auto) 1.46, Nucleated RBC % 0, Sodium 130 L, Potassium 4.6, Chloride 94 L, Carbon Dioxide 26.4, Anion Gap 10, BUN 12, Creatinine 1.47 H , Estim Creat Clear Calc 43.55 L, Est GFR (MDRD) Non-Af 39 L, BUN/Creatinine Ratio 8.2 L, Glucose 97, Calcium 9.0 Assessment & Plan Assessment/Plan (1) Carnitine palmitoyltransferase II deficiency: (2) Myalgia: (3) Generalized weakness: PLAN: Plan 65-year-old female diagnosed with CPT 2, genetic abnormality impairing her fat metabolism, body's inability to bring down fatty acids FOR ENERGY which may result in dysrhythmia rhabdomyolysis and hypoglycemia 1. 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 She states this happens about every 2 months ? She was diagnosed in her 30s ? She sees a aerospace assembler at [facility] ? Continue with D10 half-normal saline ? Continue with her home levocarnitine 2. Essential HTN/HLD/CAD/PAD/history of NSVT ? Continue with her home blood pressure medications ? Will monitor make adjustments as necessary ? Continue with lovastatin ? Continue with aspirin 3. Hypothyroidism ? Stable this is status post thyroidectomy ? Continue with Synthroid ? Her TSH is low, however T3 is normal at 2.6 4. CKD 4 ? Stable ? Continue to monitor renal function which is at baseline 5. Iron deficiency anemia ? Stable ? Continue replacement 6. Anxiety/depression ? Stable ? Continue with medications 7. GERD ? Stable ? Continue with PPI DVT: Heparin
[2025-07-20] MEDS: Cholecalciferol (VIT D3) 25 MCG TABLET (1,000 UNITS) 50 MCG PO (08:12)
[2025-07-20] MEDS: NIFEdipine 30 MG Tablet PO (08:12)
[2025-07-20] MEDS: Heparin Injection (Vial) 5,000 UNIT/ML VIAL 5000 UNIT SC (08:13)
[2025-07-20] MEDS: Aspirin E.C. 81 MG Tablet PO (08:13)
[2025-07-20] MEDS: Sodium Chloride 19.25 MEQ in Dextrose 10%-Water 250 ML 15 MEQ IV (08:18)
--- NOTE | 2025-07-20 09:01 | DCINST_ITS ---
Discharge Instructions DC O2, CPAP, BIPAP needs Home O2 Discharge instructions: No Dressing / Incision Discharge Activity: Return to Normal Activity Weight Bearing Status: Weight bearing as tolerated Dressing / Incision Call your doctor if you observe: Fever of 101 or Higher, Coldness, Increased Pain, Numbness or Tingling, Change in Color, Inability to urinate, Inability to have a bowel movement, Shortness of breath, Dizziness, Fainting spells, Swelling in the ankles, Chest pain, Prolonged hiccupping, Increased palpitations (irregular heartbeat) and Calf discomfort Follow Up Care When: IN 2 WEEKS Test Results: Test results from this visit will be discussed in further detail at your follow- up appointment, if applicable. Discharge Plan Admission Admit Date/Time: 07/17/25 23:28 Primary Reason for Your Visit: CPT-II deficiency symtoms, muscle pain Attending Provider: Vincent Hood Primary Care Provider: Jennifer Gordon Consulting Providers: Oj Deshpande; Arnel Cano Discharge Orders/Prescriptions Prescriptions: Continued (DME) Disability Placard See Rx Instructions .Route .MEDSUPPLY Qty: 1 0RF Rx Instructions: Expiration 02/07/2026 levocarnitine 330 mg tablet 330 mg PO TID aspirin [Adult Low Dose Aspirin] 81 mg tablet,delayed release (DR/EC) 81 mg PO DAILY cholecalciferol (vitamin D3) 50 mcg (2,000 unit) capsule 50 mcg PO DAILY ferrous sulfate 325 mg (65 mg iron) tablet 325 mg PO DAILY (DME) compr.stocking,thigh,short,lrg Misc See Rx Instructions .Route Qty: 24 0RF Rx Instructions: As directed albuterol sulfate 90 mcg/actuation HFA aerosol inhaler 2 puff inhalation Q6H PRN (Reason: copd) Trelegy Ellipta 200-62.5-25 mcg blister with device 1 inh inhalation DAILY Qty: 3 3RF lisinopril 20 mg tablet 10 mg PO QDAY vitamin E (dl, acetate) 45 mg (100 unit) capsule 45 mg PO QDAY albuterol sulfate 2.5 mg /3 mL (0.083 %) solution for nebulization 2.5 mg inhalation Q6 PRN (Reason: wheezing) (DME) OXYGEN - Supplemental ([facility] INFORMATIONAL USE ONLY) Gas See Rx Instructions .ROUTE Rx Instructions: As directed metoprolol tartrate 100 mg tablet 100 mg PO BID Qty: 180 3RF Patient Comments: ONLY TAKES 75 MG I BREAK THE TABLETS UP AT HOME doxepin 100 mg capsule 100 mg PO QHS Qty: 30 5RF tizanidine 4 mg tablet See Rx Instructions .ROUTE .COMPLEX Qty: 150 5RF Rx Instructions: Take 1 tablet orally twice daily and 3 tablets nightly as needed for muscle pain/spasm. omeprazole 40 mg capsule,delayed release(DR/EC) 40 mg PO DAILY Qty: 90 1RF duloxetine 60 mg capsule,delayed release(DR/EC) 60 mg PO DAILY Qty: 90 1RF nifedipine 30 mg tablet extended release 30 mg PO DAILY Qty: 90 1RF levothyroxine 175 mcg tablet 175 mcg PO DAILY Qty: 90 0RF Patient Comments: pt has been taking at night lovastatin 10 mg tablet 10 mg PO QPM Qty: 90 1RF Referrals / Follow Up: Jennifer Gordon MD [Primary Care Provider] - Within 2 Weeks Disposition Disposition (needs filled in before D/C Order can be placed): Home, Self Care
--- NOTE | 2025-07-20 09:07 | DS.PCM_ITS ---
Providers Date of Admission: 07/17/25 Date of Discharge: 07/20/25 Primary Care Physician: Dr. 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 She states this happens about every 2 months ? She was diagnosed in her 30s ? She sees a classified advertising supervisor at [facility] ? 07/20: She completed D10 half-normal saline. ? Continue with her home levocarnitine. On 2 L of oxygen. On oxygen testing, she is on baseline 2 L at rest and 4 L on exertion, home parameters. Patient is being discharged home. 2. Chronic comorbidities: Essential HTN/HLD/CAD/PAD/history of NSVT ? Continue with her home blood pressure medications ? Will monitor make adjustments as necessary ? Continue with lovastatin ? Continue with aspirin 3. Hypothyroidism ? Stable this is status post thyroidectomy ? Continue with Synthroid ? Her TSH is low, however T3 is normal at 2.6 4. CKD 4 ? Creatinine is on baseline, 1.37-1.47. ? Continue to monitor renal function which is at baseline 5. Iron deficiency anemia ? Chronic, hemoglobin stays between 10 to 11 g%. ? Continue replacement 6. Anxiety/depression ? Stable ? Continue with medications 7. GERD ? Stable ? Continue with PPI DVT: Heparin Discharge medication reconciliation done. Discharge follow-up instructions completed. Discharge process discussed with the patient and all questions were answered to patient's satisfaction. Follow with PCP in 1 to 2 weeks Total time spent, exact 35 minutes on discharge meds reconciliation, examination, coordination of care with nurses and ancillary staff, review of imaging and blood test and discussion with the patient on follow-up instructions. Medications at Discharge Home Medications Disability Placard #1 ea 02/07/23 aspirin 81 mg tablet,delayed release (Adult Low Dose Aspirin) 81 mg PO DAILY heart health 04/18/23 cholecalciferol (vitamin D3) 50 mcg (2,000 unit) capsule 50 mcg PO DAILY vitamin 04/18/23 ferrous sulfate 325 mg (65 mg iron) tablet 325 mg PO DAILY supplement 04/18/23 levocarnitine 330 mg tablet 330 mg PO TID vitamin 04/18/23 compr.stocking,thigh,short,lrg #24 ea 02/29/24 vitamin E (dl, acetate) 45 mg (100 unit) capsule 45 mg PO QDAY supplement 01/06/25 metoprolol tartrate 100 mg tablet 100 mg PO BID blood pressure #180 tabs 02/18/25 albuterol sulfate 90 mcg/actuation aerosol inhaler 2 puff inhalation Q6H PRN copd 04/04/25 fluticasone fur. 200 mcg-umeclid 62.5 mcg-vilant 25 mcg inhalat.powder (Trelegy Ellipta) 1 inh inhalation DAILY breathing #3 ea 04/04/25 doxepin 100 mg capsule 100 mg PO QHS sleep #30 caps 04/08/25 tizanidine 4 mg tablet See Rx Instructions .Route .COMPLEX spasms #150 tabs 04/08/25 lisinopril 20 mg tablet 10 mg PO QDAY hypertension 04/16/25 duloxetine 60 mg capsule,delayed release 60 mg PO DAILY mental health #90 caps 04/17/25 nifedipine 30 mg tablet,extended release 30 mg PO DAILY blood pressure #90 tabs 04/17/25 omeprazole 40 mg capsule,delayed release 40 mg PO DAILY for acid reflux #90 caps 04/17/25 levothyroxine 175 mcg tablet 175 mcg PO DAILY thyroid #90 tabs 05/16/25 albuterol sulfate 2.5 mg/3 mL (0.083 %) solution for nebulization 2.5 mg inhalation Q6 PRN wheezing 06/17/25 lovastatin 10 mg tablet 10 mg PO QPM cholesterol #90 tabs 07/17/25 OXYGEN - Supplemental ([facility] ONLY) 07/18/25 Physical Exam Narrative Seen and examined. Patient stated her myalgia/muscle pain has resolved. [facility] classified [facility] No diarrhea. No chest pain or shortness of breath. Denies dysuria. Is moving bowels. Physical exam General: Alert, Oriented x3, Cooperative. 36.8 kg/m? HEENT: Atraumatic, PERRLA, EOMI, Normocephalic. Oral: No Gingival or Mucosal Lesions/ Ulcerations Neck: Supple, No JVD, Negative Carotid Bruits Chest wall/Lungs: Air entry diminished in bilateral lung bases. No crepitation/rhonchi Cardiovascular: Regular rate and rhythm, Normal S1,S2, No M/G/R Abdomen: Bowel Sounds Present, Soft, Non Tender, Non-Distended : No dysuria. No renal angle tenderness. No suprapubic tenderness. Extremities: No edema, Capillary Refill Less than 3 Seconds Skin: No rashes, No breakdown Musculoskeletal: No Tenderness to Palpation of Joints or Extremities. ROM full. Neurological: Cranial nerves II-XII grossly intact, DTR 2+/4. No acute focal neurological deficit. Psych/Mental Status: Normal Affect, Appropriate. Weight / BMI Weight Weight: 220 lb 14.451 oz Body Mass Index (BMI) 36.7 ABG / Lab / Microbiology Data 07/20/25 05:34 07/20/25 05:34 Laboratory: Laboratory Results - last 24 hr 07/20/25 05:34: WBC 6.9, RBC 3.87 L, Hgb 10.4 L, Hct 32.6 L, MCV 84.2, MCH 26.9 L, MCHC 31.9 L, RDW Std Deviation 40.2, RDW Coeff of Esvin 13.2, Plt Count 238, MPV 10.1, Immature Gran % (Auto) 0.400, Neut % (Auto) 67.9, Lymph % (Auto) 21.1, [place] % (Auto) 7.2, Eos % (Auto) 2.7, Baso % (Auto) 0.7, Absolute Neuts (auto) 4.7, Absolute Lymphs (auto) 1.46, Nucleated RBC % 0, Sodium 130 L, Potassium 4.6, Chloride 94 L, Carbon Dioxide 26.4, Anion Gap 10, BUN 12, Creatinine 1.47 H , Estim Creat Clear Calc 43.55 L, Est GFR (MDRD) Non-Af 39 L, BUN/Creatinine Ratio 8.2 L, Glucose 97, Calcium 9.0 D/C Instructions Weight Bearing Status: Weight bearing as tolerated Call your doctor if you observe: Fever of 101 or Higher, Coldness, Increased Pain, Numbness or Tingling, Change in Color, Inability to urinate, Inability to have a bowel movement, Shortness of breath, Dizziness, Fainting spells, Swelling in the ankles, Chest pain, Prolonged hiccupping, Increased palpitations (irregular heartbeat) and Calf discomfort DC O2, CPAP, BIPAP Needs Home O2 Discharge instructions: No When: IN 2 WEEKS Meaningful Use Info Meaningful Use Meaningful Use Diagnoses (Choose all that apply): None applicable Discharge Plan Admission Admit Date/Time: 07/17/25 23:28 Primary Reason for Your Visit: CPT-II deficiency symtoms, muscle pain Attending Provider: Vincent Hood Primary Care Provider: Jennifer Gordon Consulting Providers: Oj Deshpande; Arnel Cano Discharge Orders/Prescriptions Prescriptions: Continued (DME) Disability Placard See Rx Instructions .Route .MEDSUPPLY Qty: 1 0RF Rx Instructions: Expiration 02/07/2026 levocarnitine 330 mg tablet 330 mg PO TID aspirin [Adult Low Dose Aspirin] 81 mg tablet,delayed release (DR/EC) 81 mg PO DAILY cholecalciferol (vitamin D3) 50 mcg (2,000 unit) capsule 50 mcg PO DAILY ferrous sulfate 325 mg (65 mg iron) tablet 325 mg PO DAILY (DME) compr.stocking,thigh,short,lrg Misc See Rx Instructions .Route Qty: 24 0RF Rx Instructions: As directed albuterol sulfate 90 mcg/actuation HFA aerosol inhaler 2 puff inhalation Q6H PRN (Reason: copd) Trelegy Ellipta 200-62.5-25 mcg blister with device 1 inh inhalation DAILY Qty: 3 3RF lisinopril 20 mg tablet 10 mg PO QDAY vitamin E (dl, acetate) 45 mg (100 unit) capsule 45 mg PO QDAY albuterol sulfate 2.5 mg /3 mL (0.083 %) solution for nebulization 2.5 mg inhalation Q6 PRN (Reason: wheezing) (DME) OXYGEN - Supplemental ([facility] ONLY) Gas See Rx Instructions .ROUTE Rx Instructions: As directed metoprolol tartrate 100 mg tablet 100 mg PO BID Qty: 180 3RF Patient Comments: ONLY TAKES 75 MG I BREAK THE TABLETS UP AT HOME doxepin 100 mg capsule 100 mg PO QHS Qty: 30 5RF tizanidine 4 mg tablet See Rx Instructions .ROUTE .COMPLEX Qty: 150 5RF Rx Instructions: Take 1 tablet orally twice daily and 3 tablets nightly as needed for muscle pain/spasm. omeprazole 40 mg capsule,delayed release(DR/EC) 40 mg PO DAILY Qty: 90 1RF duloxetine 60 mg capsule,delayed release(DR/EC) 60 mg PO DAILY Qty: 90 1RF nifedipine 30 mg tablet extended release 30 mg PO DAILY Qty: 90 1RF levothyroxine 175 mcg tablet 175 mcg PO DAILY Qty: 90 0RF Patient Comments: pt has been taking at night lovastatin 10 mg tablet 10 mg PO QPM Qty: 90 1RF Referrals / Follow Up: Jennifer Gordon MD [Primary Care Provider] - Within 2 Weeks Disposition Disposition (needs filled in before D/C Order can be placed): Home, Self Care Charges/Coding Visit Charges Inpatient E&M: 85395 Disch Hosp >30min
== END 2025-07-20 13:33 | disposition home or self-care (01) | DRG 642 ==
LOC: ED 20:59 → PCU 07-18 01:28
PROVIDERS: Family Medicine; Admitting Provider Internal Medicine; Emergency Provider Emergency Medicine; PCP Internal Medicine; Visit Provider Internal Medicine
DX: E71.314 Muscle carnitine palmitoyltransferase deficiency (principal); N18.4 Chronic kidney disease, stage 4 (severe); D50.9 Iron deficiency anemia, unspecified; Z99.81 Dependence on supplemental oxygen; J44.9 Chronic obstructive pulmonary disease, unspecified; F32.A Depression, unspecified; E89.0 Postprocedural hypothyroidism; I12.9 Hypertensive chronic kidney disease with stage 1 through stage 4 chronic kidney disease, or unspecified chronic kidney disease; E66.9 Obesity, unspecified; K21.9 Gastro-esophageal reflux disease without esophagitis; E78.5 Hyperlipidemia, unspecified; M79.10 Myalgia, unspecified site; I25.10 Atherosclerotic heart disease of native coronary artery without angina pectoris; F41.9 Anxiety disorder, unspecified; Z87.891 Personal history of nicotine dependence; Z68.37 Body mass index [BMI] 37.0-37.9, adult; Z90.710 Acquired absence of both cervix and uterus; Z79.51 Long term (current) use of inhaled steroids; R53.1 Weakness; Z79.82 Long term (current) use of aspirin; Z68.30 Body mass index [BMI] 30.0-30.9, adult; Z85.850 Personal history of malignant neoplasm of thyroid; Z79.899 Other long term (current) drug therapy; Z79.890 Hormone replacement therapy; Z90.49 Acquired absence of other specified parts of digestive tract; Z98.49 Cataract extraction status, unspecified eye; Z96.659 Presence of unspecified artificial knee joint
CPT/HCPCS: 36415; 80048; 80053; 81001; 82550; 83605; 83735; 84100; 84443; 84481; 85025; 93005; 94640; 94668; 99252; 99285; A4216; G0463; J1938

== ENCOUNTER → 2025-10-08 | Outpatient (CLI) | payer MEDICARE, MEDICAID, SELFPAY ==
[2025-10-08 17:55] LABS: Hematocrit 36.4 % (37-47); Hemoglobin 11.0 g/dL (12.0-15.0); Mean Corp Hgb Conc 30.2 g/dL (32-36); Mean Corpuscular Volume 88.8 fL (81-99); Mean Platelet Vol. 11.2 fl (6.2-12.0); Platelet Count 251 K/mm3 (150-450); RBC Distribution Width CV 14.4 % (11.6-14.6); RBC Distribution Width SD 46.4 fl (35.1-43.9); Red Blood Count 4.10 M/mm3 (4.2-5.4); White Blood Count 6.0 K/mm3 (4.4-11.0)
[2025-10-08 18:02] LABS: Creatinine, Urine (random) 140.00 mg/dL (28.00-217.00); Protein, Urine (Random) 67.7 mg/dL (0.0-12.0); Protein:Creat Ratio 484 mg/g CRE (0-200)
[2025-10-08 18:03] LABS: PTHIN 54 pg/mL (11-61)
[2025-10-08 18:18] LABS: Albumin, Serum 4.0 g/dL (3.4-4.8); Anion Gap 13 (5-15); BUN 22 mg/dL (4-19); BUN/Creat Ratio 12.2 RATIO (10-20); Calcium,Total 9.6 mg/dL (7.6-11.0); Carbon Dioxide 24.1 mmol/L (21.0-32.0); Chloride 100 mmol/L (98-108); Glucose 99 mg/dL (70-99); Potassium 5.1 mmol/L (3.3-5.1); Vitamin D,25 Hydroxy 65.6 ng/mL (30-100)
== END | disposition home or self-care (01) ==
LOC: MTLAB 16:05
PROVIDERS: PCP Internal Medicine; Referring Provider Nurse Practitioner Family; Visit Provider Nurse Practitioner Family
DX: N18.4 Chronic kidney disease, stage 4 (severe) (principal); R05.9 Cough, unspecified
CPT/HCPCS: 36415; 80069; 82306; 82570; 83970; 84156; 85027; 87070; 87077; 87186; 87205

== ENCOUNTER 2025-10-11 21:40 | Inpatient (IN) | payer MEDICARE, MEDICAID, SELFPAY ==
[2025-10-11 21:42] VITALS: BP 193/92; PULSE 71; RESP 21; TEMP 36.7; O2SAT 96; BMI 39.1
--- OUTSIDE RECORDS SUMMARY | 2025-10-11 22:14 | XMS RPT_ITS | CCD ---
Author Organization [facility] Care Team Providers Care Equipment Service Engineer Name Role Phone Elana Pena Unavailable Elana Pena Unavailable Unavailable Unavailable Unavailable ELANA PENA Unavailable Unavailable MANUELITO MORALES Unavailable Unavailable MANUELITO MORALES A Unavailable Unavailable ELANA PENA Unavailable Unavailable DENNIS ATKINS Unavailable Unavailable BETY HERNANDEZ Unavailable Unavailable BETY HERNANDEZ Unavailable Unavailable Oscar Vinson A Admitting Unavailable [place] Oscar A Attending Unavailable Tom, Tyshawn K Admitting Unavailable Tom, Tyshawn K Attending Unavailable Inge, Bahzat Wayne Admitting Unavailab le Inge, Bahzat Wyane Attending Unavailab le Vadada, Andre C Admitting Unavailable Vadada, Adnre C Attending Unavailable Jonathan Rutherford Admitting Unavailable Jonathan Rutherford Attending Unavailable Ezequiel, Khaldoon Wajeeh Admitting Unavail able Ezequiel, Khaldoon Wajeeh Attending Unavail able Vaibhav Naranjo Attending Unavailable Vaibhav Naranjo Admitting Unavailable Vaibhav Naranjo Admitting Unavailable Vaibhav Naranjo Attending Unavailable Ezequiel, Khaldoon Wajeeh Admitting Unavail able Ezequiel, Khaldoon Wajeeh Attending Unavail able Kailee Louis Admitting Unavailable Kailee Louis Attending Unavailable Vadada, Andre C Admitting Unavailable Vadada, Andre C Attending Unavailable Bety Hernandez Admitting Unavailable Bety Hernandez Attending Unavailable Elana Pena Primary Care Provider Elana Pena Unavailable Elana Pena Primary Care Provider [phone] Becky Elana Ramírez Primary Care Provider Becky Elana Ramírez Unavailable Jonathan Rutherford. Primary Care Provider Elana Pena DO Unavailable Wilfridlinger SQL DATA ANALYST, Jonathan L. Primary Care Provider Hellinger SQL DATA ANALYST, Jonathan L. Unavailable Elana Pena DO Unavailable Hellinger SQL DATA ANALYST, Jonathan L. Unavailable [place] SQL DATA ANALYST, Jonathan L. Primary Care Provider [phone] [place] SQL DATA ANALYST, Jonathan L. Unavailable Dr. Rusty Dozier Attending Provider Alexandre OLIVAREZP Jonathan Lee [facility] FACTORY REPRESENTATIVE, FACTORY REPRESENTATIVE-C Jonathan Referring Provider [phone] Dr. Jennifer Gordon Primary Care Provider Dr. Jennifer Gordon Attending Provider [phone] Dr. Oscar Arshad Attending Provider [facility] FACTORY REPRESENTATIVE, FACTORY REPRESENTATIVE-C Jonathan Referring Provider [phone] Dr. Jennifer Gordon Primary Care Provider Dr. Jennifer Gordon Attending Provider [phone] Dr. Oscar Arshad Attending Provider [phone] Rusty Dozier Referring Provider [phone] Dr. Rusty Dozier Attending Provider [phone] Dr. Jennifer Gordon Referring Provider [phone] Dr. Rusty Dozier Referring Provider Dr. Jennifer Gordon Primary Care Provider Dr. Jennifer Gordon Referring Provider Giovanna FACTORY REPRESENTATIVE, FACTORY REPRESENTATIVE-C Sasha Attending Provider Aleisha Chisholm Attending Provider Unavailable Dr. Flavia Shine Attending Provider [phone] Dr. Flavia Shine Referring Provider Dr. Jennifer Gordon Attending Provider [phone] Fabienne SANCHEZ, PA Aleisha Wetzel Referring Provider DANIEL Banerjee Other Provider [phone] Dr. Melvin Oshea Attending Provider Dr. Jennifer Gordon Primary Care Provider Dr. Jennifer Gordon Primary Care Provider Dr. Jennifer Gordon Referring Provider [phone] [facility] Jonathan MELCHOR Primary Care Provider [phone] [facility] Jonathan MELCHOR Unavailable Dr. Jennifer Gordon Primary Care Provider Dr. Jennifer Gordon Referring Provider [phone] Dr. Flavia Shine Attending Provider Dr. Rusty Dozier Attending Provider Dr. Jennifer Gordon Attending Provider [phone] Dr. Qiana Forde Attending Provider Dr. Jennifer Gordon Primary Care Provider Dr. Jennifer Gordon Referring Provider [phone] Dr. Rusty Dozier Attending Provider Dr. Jennifer Gordon Attending Provider [phone] Dr. Qiana Forde Attending Provider Dr. Cristian Joseph Attending Provider No, Physician Primary Care Provider Darrell Gordon MD, Dr. Rodriguez Primary Care Provider [phone] Heidi HUNTER, Dr. Rodriguez Attending Provider Heidi HUNETR, Dr. Rodriguez Referring Provider Jacoby HUNTER, Dr. Ojeda Attending Provider Jacoby HUNTER, Dr. Ojeda Referring Provider Barrera HUNTER, Dr. Espinal Attending Provider [phone] Barrera HUNTER, Dr. Espinal Emergency Provider [phone] Hui Roberts Attending Provider [phone] Dorie HUNTER, Dr. Charles Attending Provider [phone] Cary Jacobsen MD Attending Provider [phone] Hui Roberts Referring Provider [phone] Heidi HUNTER, Dr. Rodriguez Primary Care Provider [phone] Heidi HUNTER, Dr. Rodriguez Referring Provider Cary Jacobsen MD Referring Provider [phone] Wayne FACTORY REPRESENTATIVE-CColette Attending Provider Dr. Jennifer Gordon MD Attending Provider Giovanna JIMENEZ-CSasha Attending Provider Giovanna JIMENEZ-CSasha Referring Provider NO, PHYSICIAN Primary Care Unavailable CB BOUDREAUX Attending Unavailable RIVAS JULES Attending Unavailable JONATHAN RUTHERFORD Primary Care Unavailable NO, PHYSICIAN Primary Care Unavailable SYSTEM, PROVIDER NOT IN Admitting Unavaila ble URADU, CB TRINIDAD Referring Unavailable URADUCB Attending Unavailable NO, PHYSICIAN Primary Care Unavailable MIHAELA JAMES Attending Unavailable JONATHAN RUTHERFORD Primary Care Unavailable YARELI WOODRUFF Attending Unavailable Not On File, Doctor Primary Care Provider Heidi HUNTER, Dr. Rodriguez Primary Care Provider [phone] Heidi HUNTER, Dr. Rodriguez Referring Provider Dorie HUNTER, Dr. Charles Attending Provider [phone] Hui Roberts Attending Provider Jacoby HUNTER, Dr. Ojeda Attending Provider Heidi HUNTER, Dr. Rodriguez Primary Care Provider [phone] Cary Jacobsen MD Attending Provider [phone] Dr. Jennifer Gordon MD Referring Provider Hui Roberts Attending Provider Dorie HUNTER, Dr. Charles Attending Provider [phone] Heidi HUNTER, Dr. Rodriguez Primary Care Provider [phone] Cary Jacobsen MD Attending Provider [phone] Wayne FACTORY REPRESENTATIVE-C, Colette Wetzel Referring Provider Tatiana FACTORY REPRESENTATIVE-C, Mihaela Attending Provider [phone] Heidi HUNTER, Dr. Rodriguez Primary Care Provider [phone] Dr. Jennifer Gordon MD Referring Provider Ungbrandonr FACTORY REPRESENTATIVE-C, Mihaela Referring Provider Gunnar HUNTER, Dr. Durbin Emergency Provider de Jesus Alberto DO, Dr. Mcwilliams Admit Provider Unavail able de Jesus Alberto DO, Dr. Mcwilliams Attending Provider Unav ailable Dr. Ramakrishna Maher MD Emergency Provider de Jesus Alberto DO, Dr. Mcwilliams Admit Provider Unavail able de Jesus Alberto DO, Dr. Mcwilliams Other Provider Unavail able Erwin HUNTER, Dr. Kaur Attending Provider Rachael HUNTER, Dr. Arnel Beauchamp Other Provider Rachael HUNTER, Dr. Arnel Beauchamp Attending Provider Erwin HUNTER, Dr. Kaur Other Provider Michelle HUNTER, Andre Primary Care Provider LILLIAM, EMMETT Attending Unavailable ANDRE MARTINEZ Primary Care Unavailable EMMETT HYMAN Attending Unavailable JONATHAN RUTHERFORD Primary Care Unavailable LILLIAM, EMMETT Attending Unavailable NOT ON FILE, DOCTOR Primary Care Unavailable MICHELLE, ANDRE Primary Care Unavailable EMMETT HYMAN Attending Unavailable Heidi HUNTER, Dr. Rodriguez Primary Care Physician Heidi HUNTER, Dr. Rodriguez Attending Physician Heidi HUNTER, Dr. Rodriguez Referring Provider Giovanna FACTORY REPRESENTATIVE-C, Sasha Attending Physician Wayne FACTORY REPRESENTATIVE-C, Colette Wetzel Attending Physician Tatiana FACTORY REPRESENTATIVE-C, Mihaela Attending Physician Gunnar HUNTER, Dr. Durbin Emergency Department Physician Deshpande DO, Dr. Mcwilliams Admitting Physician Opal vailable Deshpande DO, Dr. Mcwilliams Nurse Practitioner Unav ailable Erwin HUNTER, Dr. Kaur Attending Physician Rachael HUNTER, Dr. Arnel Beauchamp Nurse Practitioner Rachael HUNTER, Dr. Arnle Beauchamp Attending Physician Erwin HUNTER, Dr. Kaur Nurse Practitioner NO, PHYSICIAN Primary Care Unavailable ARNEL ANN Attending Unava ilable Heidi, Jennifer Primary Care Unavailable Vincent Hood Attending Unavailable Elana Deshpande Admitting Unavailable Elana Deshpande Consulting Unavailable Arnel Cano Consulting Unavailable Heidi, Jennifer Referring Unavailable Supply, Jennifer Primary Care Unavailable Supply, Jennifer Attending Unavailable Heidi, Jennifer Referring Unavailable Heidi, Jennifer Attending Unavailable Supply, Jennifer Primary Care Unavailable Heidi, Jennifer Primary Care Unavailable Teddy Rust Attending Unavailable Supply, Jennifer Primary Care Unavailable Giovanna JIMENEZ, Sasha Attending Unavailable Sasha Heredia NP Referring Unavailable Supply, Jennifer Primary Care Unavailable Vincent Hood Attending Unavailable Elana Deshpande Consulting Unavailable Elana Deshpande Admitting Unavailable Arnel Cano Consulting Unavailable Vincent Hood Consulting Unavailable Arnel Cano Attending Unavailable Cary Jacobsen Attending Unavailable Supply, Jennifer Referring Unavailable Heidi, Jennifer Primary Care Unavailable Cary Jacobsen Referring Unavailable Heidi, Jennifer Primary Care Unavailable Cary Jacobsen Attending Unavailable Supply, Jennifer Primary Care Unavailable Melvin Oshea Attending Unavailable Heidi, Jennifer Referring Unavailable Supply, Jennifer Primary Care Unavailable Cary Jacobsen Attending Unavailable Elana Deshpande Attending Unavailable Hui Whitehead Attending Unavailable Heidi, Jennifer Referring Unavailable Supply, Jennifer Primary Care Unavailable Hui Whitehead Attending Unavailable Heidi, Jennifer Referring Unavailable Supply, Jennifer Primary Care Unavailable Heidi, Jennifer Attending Unavailable Heidi, Jennifer Referring Unavailable Heidi, Jennifer Primary Care Unavailable Supply, Jennifer Referring Unavailable Supply, Jennifer Primary Care Unavailable Rusty Dozier Attending Unavailable Supply, Jennifer Referring Unavailable Mihaela Simpson Attending Unavailable Heidi, Jennifer Primary Care Unavailable Melvin Oshea Attending Unavailable Heidi, Jennifer Primary Care Unavailable Supply, Jennifer Primary Care Unavailable Rusty Dozier Attending Unavailable Rusty Dozier Referring Unavailable Colette Black Attending Unavailable Colette Black Referring Unavailable Supply, Jennifer Primary Care Unavailable Colette Black Attending Unavailable Colette Black Referring Unavailable Heidi, Jennifer Primary Care Unavailable Cristian Joseph Attending Unavailable Flavia Shine Attending Unavailable Supply, Jennifer Referring Unavailable Heidi, Jennifer Primary Care Unavailable Colette Black Attending Unavailable Supply, Jennifer Primary Care Unavailable Supply, Jennifer Referring Unavailable Heidi, Jennifer Referring Unavailable Supply, Jennifer Attending Unavailable Heidi, Jennifer Primary Care Unavailable Colette Black Attending Unavailable Heidi, Jennifer Referring Unavailable Supply, Jennifer Primary Care Unavailable Supply, Jennifer Referring Unavailable Supply, Jennifer Primary Care Unavailable Cary Jacobsen Attending Unavailable Supply, Jennifer Referring Unavailable Heidi, Jennifer Primary Care Unavailable Rusty Dozier Attending Unavailable Dorie, Melvin Attending Unavailable Supply, Jennifer Primary Care Unavailable Ventura, Hui Attending Unavailable Ventura, Hui Referring Unavailable Supply, Jennifer Primary Care Unavailable Heidi, Jennifer Primary Care Unavailable Baddour, Rusty Attending Unavailable Baddour, Rusty Referring Unavailable Supply, Jennifer Primary Care Unavailable Ungerer, Mihaela Attending Unavailable Ungerer, Mihaela Referring Unavailable RENE LUU Attending Unavailable NO, PHYSICIAN Primary Care Unavailable NO, PHYSICIAN Primary Care Unavailable MITRARAJONATAN KRAMER Attending Unavaila ble NO, PHYSICIAN Primary Care Unavailable URADU, CB TRINIDAD Attending Unavailable URADU, CB KENYONI Referring Unavailable NO, PHYSICIAN Primary Care Unavailable INGEJOSSIE HAMILTON Attending Unavailable [facility] Consulting Unavai lable SUSAN THAKUR Admitting Unavailable NO, PHYSICIAN Primary Care Unavailable JOSSIE ALCAZAR Attending Unavailable SALEM, AHMED Admitting Unavailable [facility] Consulting Unavai lable Allergies Allergy Classification Reported Allergen(s) Allergy Type Date of Onset Reaction(s) Facility Penicillins (antibiotic) (1 source) Penicillins Drug Allergy 5 Unknown, Other (See Comments) [facility] (17 sources) naproxen Propensity to adverse reactions to drug 7 [facility] Work Phone: (20 sources) Penicillins; Translations: [PENICILLINS] Propensity to adverse reactions to drug 5 Unknown, Other (See Comments) [facility] Work Phone: Comment on above: allerigic when a chi ld (1 source) Penicillins Drug allergy (disorder) [facility] (1 source) Penicillins Propensity to adverse reactions to drug 6 [facility] (17 sources) Penicillins Propensity to adverse reactions to drug 5 Unknown, Other (See Comments) [facility] (20 sources) Penicillins Propensity to adverse reactions to drug 5 Unknown, Other (See Comments) [facility] (13 sources) Penicillins Propensity to adverse reactions to drug 5 Unknown, Other (See Comments) [facility] (20 sources) Vancomycin; Translations: [VANCOMYCIN] Drug Allergy 5 Rash [facility] (11 sources) fremanezumab Drug Allergy [address] [facility] (1 source) Penicillins Drug allergy (disorder) [address] [facility] Rep[facility] (1 source) Vancomycin Drug Allergy [address] [facility] Rep[facility] (1 source) fremanezumab-vfr m Drug allergy (disorder) [address] [facility] Repository Medications Current Medications Medication Drug Class(es) [...] 8 hour s scheduled, First dose on 03/30/22 at 2200, PACU to Post Procedure Do not give within 6 hours of last dose of IV acetaminophen (OFIRMEV) or last dose of oral acetaminophen. Maximum dose of 4 grams in 24 hours. albuterol 0.83 mg/ml inhalation solution (20 sources) beta2-Adrenergic Agonist Start: 06-17-2025 take 2.5 mg by inhalation every six hours as needed for wheezing Start: 06-17-2025 take 1 mg by inhalat ion every six hours as needed for wheezing Albuterol Sulfate 2.5 mg /3 mL (0.083 %) solution for nebulization Active mg INHALATION EVERY 6 HOURS as needed for wheezing June 17, 2025 12:00am Start: 04-04-2025 Start: 02-18-2025 End: 03-20-2025 albuterol (PROVENTIL) 2.5 [...] wheezing. 0 Active ALBUTEROL, REFILL, INHALATIO N (20 sources) ALBUTEROL, REFIL L, INHALATION Inhale by [...] 2024 12:00am As directed Compr.Stocking,Thig h,Short,Lrg misc (15 sources) Start: 02-29-2024 Compr.Stocking,Thig h,Short,Lrg misc Active [...] .MEDSUPPLY February 07, 2023 12:00am Expiration 02/07/2026 Pzmkfjcjrdz-Uncqicjtt-Qmtncd er (20 sources) Start: 04-04-2025 Start: 04-04-2025 Fluticasone-Um eclidin-Vilanter (Trelegy Ellipta) 200-62.5-25 mcg blister with device Active 1 NMA INHALATION DAILY 3 April 04, 2025 2:17pm Obstructive sleep apnea syndrome Obstructive sleep apnea (adult) (pediatric) breathing Start: 04-04-2025 Fluticasone-Um eclidin-Vilanter (Trelegy Ellipta) 200-62.5-25 mcg blister with device Active 1 NMA INHALATION DAILY April 04, 2025 2:17pm Start: 11-07-2024 End: 04-04-2025 Xcwfshbipuj-Rpfaponnb-Ohhcmf er (Trelegy Ellipta) 200-62.5-25 mcg blister with device Discontinued 1 NMA INHALATION DAILY 3 November 07, 2024 11:37am April 04, 2025 2:18pm Obstructive sleep apnea syndrome Obstructive sleep apnea (adult) (pediatric) breathing Start: 11-07-2024 End: 04-04-2025 Ojlrfserzfc-Jeekchtwi-Ehzhzx er (Trelegy Ellipta) 200-62.5-25 mcg blister with device Discontinued 1 NMA INHALATION DAILY November 07, 2024 11:37am April 04, 2025 2:18pm Start: 11-07-2024 Fluticasone-Um eclidin-Vilanter (Trelegy Ellipta) 200-62.5-25 mcg blister with device Active 1 NMA INHALATION DAILY November 07, 2024 11:37am Start: 07-17-2024 End: 11-07-2024 Ixjibsktsbv-Bufyppmva-Btxfed er (Trelegy Ellipta) 200-62.5-25 mcg blister with device Discontinued 1 NMA INHALATION DAILY 3 July 17, 2024 1:44pm November 07, 2024 11:37am Obstructive sleep apnea syndrome Obstructive sleep apnea (adult) (pediatric) breathing Start: 07-17-2024 End: 11-07-2024 Kdubnfmskuo-Amsjxyroy-Irzmzv er (Trelegy Ellipta) 200-62.5-25 mcg blister with device Discontinued 1 NMA INHALATION DAILY July 17, 2024 1:44pm November 07, 2024 11:37am Start: 02-12-2024 End: 07-17-2024 Oreeuqyykec-Gywcpezjy-Thoicy er (Trelegy Ellipta) 200-62.5-25 mcg blister with device Discontinued 1 NMA INHALATION DAILY 3 February 12, 2024 8:20am July 17, 2024 1:44pm Obstructive sleep apnea syndrome Obstructive sleep apnea (adult) (pediatric) breathing Start: 02-12-2024 End: 07-17-2024 Fmglcrhifyi-Zihgcbvvk-Hszxzj er (Trelegy Ellipta) 200-62.5-25 mcg blister with device Discontinued 1 NMA INHALATION DAILY February 12, 2024 8:20am July 17, 2024 1:44pm Start: 02-12-2024 Fluticasone-Um eclidin-Vilanter (Trelegy Ellipta) 200-62.5-25 mcg blister with device Active 1 INH INHALATION DAILY February 12, 2024 8:20am Start: 02-24-2023 End: 02-12-2024 Tbnjhfdjhza-Grexxzcsy-Onrtuz er (Trelegy Ellipta) 200-62.5-25 mcg blister with device Discontinued 1 NMA INHALATION DAILY 3 February 24, 2023 2:38pm February 12, 2024 8:20am Obstructive sleep apnea syndrome Obstructive sleep apnea (adult) (pediatric) Start: 02-24-2023 End: 02-12-2024 Pmupcqzinnj-Rwjxqjbgz-Ddgbmn er (Trelegy Ellipta) 200-62.5-25 mcg blister with device Discontinued 1 NMA INHALATION DAILY February 24, 2023 2:38pm February 12, 2024 8:20am Start: 02-24-2023 End: 02-12-2024 Coiaedlfgxu-Dufdwzqij-Zijeuk er (Trelegy Ellipta) 200-62.5-25 mcg blister with [...] 24, 2023 2:38pm Start: 02-24-2023 End: 02-24-2023 Eroezqruvzb-Eepkmakbm-Rzuzod er (Trelegy Ellipta) 200-62.5-25 mcg blister with device Discontinued 1 NMA INHALATION DAILY February 24, 2023 12:00am February 24, 2023 2:38pm Start: 02-24-2023 End: 02-24-2023 Losqlwssguv-Wmyaxfuru-Xvhxnx er (Trelegy Ellipta) 200-62.5-25 mcg blister with device Discontinued 1 INH INHALATION DAILY February 23, 2023 11:00pm February 24, 2023 1:38pm Start: 02-24-2023 End: 02-24-2023 Opimgvwoiyr-Jhmhpgleo-Sknmlb er (Trelegy Ellipta) 200-62.5-25 mcg blister with device Discontinued 1 INH INHALATION DAILY February 24, 2023 12:00am February 24, 2023 2:38pm eylitwwkfbf-wiellknlm-gjcfnk er (Trelegy Ellipta) 200-62.5-25 mcg DsDv (20 sources) Start: 12-30-2021 nspxvfyafcj-aifdbkjfi-hwtcod er (Trelegy Ellipta) 200-62.5-25 mcg DsDv Inhale [...] (20 sources) Carnitine Analog Start: 02-13-2023 End: 07-23-2025 levOCARNitine 330 mg tablet (Carnitor) Take three times a day 90 tablet 11 07/23/2025 Active lidocaine 0.05 mg/mg medicated patch (4 sources) [...] take 10 mg by mouth once daily Start: 02-14-2025 End: 02-14-2025 take 20 mg [...] tablet Discontinued 10 mg PO DAILY 90 3 2024 12:00am October 16, 2024 2:22pm blood [...] Mon03/30/22 at 2000, PACU to Post Procedure take 2 tablets [...] when walking or with activity . 0 Oxygen - Supplemental ([facility] Informational Use Only) gas (2 sources) Start: 07-18-2025 Oxygen - Suppl emental ([facility] Informational Use Only) gas Active 0 .ROUTE July 18, 2025 12:00am Low spo2 As directed predniSONE 20 mg oral tablet (11 sources) [...] Every 12 hours scheduled, First dose on [place] 02/16/25 at 1230, For 5 days, Indication: [...] mcg tablet Discontinued 150 ug PO DAILY August 09, 2023 12:59pm January 01, 2024 [...] 2 times prashant ly, First dose on Tu09/03/24 at 0900 Start: 09-02-2024 End: 09-03-2024 take [...] 06/18/2018 Active take 3 tablets by mo uth at bedtime, then take 2 tablets by [...] a total of 12mg . 0 Active triheptanoin 1000 mg/ml oral solution (20 sources) [...] 01, 2022 1:00am March 20, 2023 2:23pm vitamin e 100 unt oral capsu le (15 sources) Start: 01-06-2025 take 1 capsule by [facility] once daily Completed/Discontinued Medications Medication Drug Class(es) Dates Sig [...] / oxyCODONE hydrochloride 5 mg oral tablet (15 sources) Opioid Agonist Start: 01-01-2025 End: 02-27-2025 [...] 06/18/2018 Active take 2 tablets by mo nch once daily amLODIPine (NORVASC) 5 MG tablet [...] dose on Mon09/02/24 at 2000 Start: 04-18-2023 Start: 03-30-2022 End: 04-04-2022 take 81 mg [...] Nonsteroidal Anti-inflammator y Drug Start: 03-30-2022 End: 05-25-2022 celecoxib (CELEBREX) capsule 200 mg chlorthalidone 25 [...] Start: 04-18-2023 take 1 capsule by [facility] once daily Start: 03-08-2023 End: 04-18-2023 take 1 capsule [...] CHEW. docusate sodium 50 mg / sennosides, residential 8.6 mg oral tablet (1 source) Start: [...] at bedtime. Active take 1 capsule by [facility] once daily as needed for sleep doxepin [...] take 1 tablet by mouth once daily ferrous sulfate 324 mg (65 mg iron) [...] 03/31/22 at 0600, PACU to Post Procedure Notify [...] NaCl (DILAUDID) 15 mg/30 mL (0.5 mg/mL) TREASURY ANALYST (1 source) Start: 03-30-2022 End: 03-31-2022 Intravenous, Continuous, Starting on Mon03/30/22 at 2000, PACU to Post Procedure Use Port-Free Tubing in Non-Procedural Areas. hyoscyamine sulfate 0.125 mg oral tablet (19 sources) Start: 12-11-2023 End: 06-17-2024 take 1 [...] Intravenous, Once in imaging, contrast, Starting on [facility] 02/13/25 at 1705, For 1 dose iron [...] Discontinued 10 mg PO EVERY EVENING 90 October 17, 2024 8:41am July 17, 2025 12:58pm cholesterol 50 ml magnesium sulfate 40 mg/ml [...] Intravenous, Every 8 hours, First dose on 02/14/25 at 0200 Start: 02-13-2025 End: 02-13-2025 60 [...] For 2 doses, Anginal pain, may repeat X1tjjenlz x2, then notify physician. DO NOT CRUSH [...] g, Intravenous, at 12.5 mL/hr, Once, On [place] 02/13/25 at 2130, For 1 dose, Start infuse 3 hours after loading dose of Zosyn 4.5 gm VESICANT, Indication: Sepsis Start: 02-13-2025 End: 02-13-2025 4.5 g, Intravenous, at 200 m L/hr, Once, On [place] 02/13/25 at 1800, For 1 dose, VESICANT, [...] 2023 9:15am rifAXIMin 550 mg oral tablet (20 sources) Rifamycin Antibacterial Start: 07-02-2024 End: 02-18-2025 take 1 tablet by mouth three times daily Rifaximin (Xifaxan) 550 mg tablet Discontinued 550 mg PO THREE TIMES A DAY July 02, 2024 12:00am January 06, 2025 11:22am roflumilast 0.25 mg oral tablet (18 sources) Phosphodiesterase 4 Inhibitor Start: 06-17-2025 End: 07-17-2025 take 1 tablet by mouth once daily Roflumilast (Daliresp) 250 mcg tablet Discontinued 250 ug PO daily June 17, 2025 3:25pm July 17, 2025 11:03pm Stage 3 severe COPD by GOLD classification Chronic obstructive pulmonary disease, unspecified Start: 06-17-2025 take 1 tablet by ines once daily Roflumilast (Daliresp) 250 mcg tablet Active 250 ug PO daily 2 June 17, 2025 3:25pm Stage 3 severe COPD by GOLD classification Chronic obstructive pulmonary disease, unspecified Start: 04-04-2025 End: 07-17-2025 take 1 tablet by mouth [...] PO daily April 04, 2025 12:00am sennosides, residential 8.6 mg oral tablet (2 sources) Start: [...] 100 mL/hr, Intrav enous, Continuous, Starting on 09/03/24 at 0930, For 5 hours Start: 09-03-2024 [...] kimber garry 1,000 mL sodium zirconium cyclosilicate 43932 mg powder for oral suspension (1 source) [...] X1 in 30 minutes if still awake. vancomycin 125 mg oral capsule (1 source) Glycopeptide Antibacterial Start: 06-21-2022 End: 06-22-2022 vancomycin (VANCOCIN) capsule 125 mg vancomycin (VANCOCIN) 2000 mg in sodium chloride 0.9% 500 mL IVPB (1 source) Start: 02-13-2025 End: 02-13-2025 2,000 mg, Intravenous, at 250 mL/hr, Once, On [place] 02/13/25 at 1740, For 1 dose, Indication: Sepsis Problems Active Problems Problem Classification Problem Date Documented Date Episodic/Chronic Administrative/social admission (3 sources) Persons encountering health services in other specified circumstances; Translations: [Other reasons for seeking consultation] 12-01-2022 Episodic Cancer of thyroid (20 sources) Malignant tumor of thyroid gland; Translations: [Malignant neoplasm of thyroid gland] 03-20-2023 Chronic Cardiac dysrhythmias (20 sources) Ventricular tachycardia; Translations: [Recurrent ventricular tachycardia] 06-05-2023 Chronic Chronic kidney disease (20 sources) Chronic kidney disease stage 3; Translations: [CKD (chronic kidney disease) stage 3, GFR 30-59 ml/min ([facility])] Onset: 06-17-20 Chronic Chronic kidney disease (2 [...] Coronary arteriosclerosis; Translations: [Atherosclerotic heart disease of [place] coronary artery without angina pectoris] 04-18-2023 Chronic Deficiency and other anemia (10 sources) Anemia; Translations: [Anemia, unspecified] 06-26-2025 Episodic Deficiency and other anemia (1 source) Anemia, unspecified; Translations: [Anemia, unspecified] Onset: 07-02-20 Episodic Diabetes mellitus without complication (20 sources) Other abnormal glucose; Translations: [Other abnormal glucose] 02-29-2024 Episodic Disorders of lipid metabolism (17 sources) Mixed hyperlipidemia; Translations: [Mixed hyperlipidemia] 12-11-2023 Chronic Essential hypertension (20 sources) Hypertensive disorder; Translations: [Essential (primary) hypertension] Onset: 04-05-20 19 04-05-2019 Chronic Fluid and electrolyte disorders (16 sources) Hyperkalemia; Translations: [Hyperkalemia] Episodic Gastrointestinal hemorrhage [...] fatigue (20 sources) Fatigue; Translations: [Other fatigue] Onset: 07-20-20 25 03-08-2023 Episodic Mood disorders (20 sources) Depressive disorder; Translations: [Depression] Onset: 06-17-20 19 06-17-2019 Chronic Noninfectious gastroenteritis (20 sources) Chronic diarrhea; Translations: [Noninfective gastroenteritis and colitis, unspecified] 12-01-2022 Episodic Osteoarthritis (20 sources) Localized, primary osteoarthritis [...] malignant neoplasm] 10-16-2024 Episodic Other circulatory disease (14 sources) History of cardiac arrhythmia; Translations: [Personal history of other diseases of the circulatory system] 04-22-2024 Episodic Other circulatory disease (1 source) History of supraventricular tachycardia; Translations: [Personal history of other diseases of [...] Episodic Other connective tissue disease (15 sources) Spasm; Translations: [Other muscle spasm] 01-09-2025 Episodic Other connective tissue disease (20 sources) Tendinosis of right shoulder; Translations: [Other specified disorders of tendon, right shoulder] 04-03-2025 Episodic Other connective tissue disease (6 sources) Secondary rhabdomyolysis; Translations: [Rhabdomyolysis] 07-17-2025 Episodic Other connective tissue disease (2 sources) Pain in right toe(s); Translations: [Pain in right toe(s)] Onset: 08-11-20 Episodic Other gastrointestinal disorders (15 sources) Acute constipation; Translations: [Constipation, unspecified] 06-18-2024 Episodic Other injuries and conditions due to external causes (1 source) Systemic inflammatory response syndrome; Translations: [Systemic inflammatory response syndrome (SIRS) of non-infectious origin without acute organ dysfunction] 02-13-2025 Episodic Other liver diseases (20 sources) Steatosis of liver; Translations: [Fatty (change of) liver, not elsewhere classified] 11-22-2022 Chronic Other liver diseases (7 sources) Increased creatine kinase level; Translations: [Abnormal levels of other serum enzymes] 02-13-2025 Episodic Other lower respiratory disease (20 sources) Hypoxia; Translations: [Hypoxemia] 02-24-2023 Episodic Other lower respiratory disease (3 sources) Hypoxemia; Translations: [Hypoxemia] 02-24-2023 Episodic Other lower respiratory disease (4 sources) Dyspnea; Translations: [Shortness of breath] Onset: 02-14-2002-13-2025 Episodic Other lower respiratory disease (20 sources) Hypoxemia; Translations: [Hypoxemia] 04-04-2025 Episodic Other lower respiratory disease (7 sources) Wheezing; Translations: [Wheezing] 06-17-2025 Episodic Other [...] [Disease of spinal cord, unspecified] Onset: 02-06-20 25 Chronic Other non-traumatic joint disorders (20 sources) [...] nutritional; endocrine; and metabolic disorders (18 sources) Muscle carnitine palmitoyltransferase deficiency; 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] Onset: 06-18-20 18 Chronic Other nutritional; endocrine; and metabolic disorders (20 sources) Obesity; Translations: [Obesity, unspecified] 10-17-2023 Chronic Other nutritional; endocrine; and metabolic disorders (4 sources) Obesity, unspecified; Translations: [Obesity, unspecified] Onset: 07-20-20 25 10-17-2023 Chronic Other nutritional; endocrine; and metabolic disorders (4 sources) Morbid (severe) obesity due to excess calories; Translations: [Morbid obesity] 12-11-2023 Chronic Other nutritional; endocrine; and metabolic disorders (15 sources) Body mass index 40+ - severely obese; Translations: [Morbid (severe) obesity due to excess calories] 04-22-2024 Chronic Other nutritional; endocrine; and metabolic disorders (19 sources) Body mass index 30+ - obesity; Translations: [Obesity, unspecified] 10-16-2024 Chronic Other nutritional; endocrine; and metabolic disorders (20 sources) History of nutritional deficiency; Translations: [Personal history of other endocrine, nutritional and metabolic disease] 11-06-2022 Episodic Other screening for suspected conditions (not mental disorders or infectious disease) (15 sources) Abnormal findings on diagnostic imaging of other specified body structures; Translations: [Abnormal chest x-ray] 04-22-2024 Chronic Other screening for suspected conditions (not mental disorders or infectious disease) (20 sources) Electrocardiogram abnormal; Translations: [Patient encounter status] Episodic Other upper respiratory disease (1 source) [...] sources) Pneumonia; Translations: [Pneumonia, unspecified organism] Onset: 09-11-2002-13-2025 Episodic Residual codes; unclassified (20 sources) Sleep [...] Translations: [Chronic respiratory failure with hypoxia] Onset: 02-14-20 25 01-15-2024 Chronic Skin and subcutaneous tissue infections (1 source) Cellulitis of left knee; Translations: [Cellulitis of left lower limb] 09-02-2024 Episodic Spondylosis; intervertebral disc disorders; other back problems [...] unspecified; Translations: [Ventricular tachycardia, unspecified] Onset: 09-18-20 24 Unclassified (1 source) 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 Unclassified (1 source) Low back pain, unspecified; Translations: [Low back pain, unspecified] Onset: 02-28-20 Unclassified (1 source) Personal history of colon polyps, unspecified; Translations: [Personal history of colon polyps, unspecified] Onset: 01-08-20 Past or Other Problems Problem Classification Problem Date Documented Da te Episodic/Chronic Abdominal pain (20 sources) Abdominal pain; Translations: [Unspecified abdominal pain] Onset: 07-19-2022 Episodic Acute and unspecified renal failure (20 sources) [id number] renal failure; Translations: [Acute kidney failure, unspecified] Onset: 06-26-2022 Episodic Anal and rectal conditions (20 sources) Rectal prolapse; Translations: [Rectal prolapse] Onset: 03-01-2022 Episodic Cancer of thyroid (1 source) Personal history of malignant neoplasm of thyroid; Translations: [Personal history of malignant neoplasm of thyroid] Onset: 05-14-2025 Episodic Cardiac dysrhythmias (20 sources) Palpitations; Translations: [Palpitations] Onset: 09-18-2024 04-18-2023 Episodic Medical examination/evaluation (2 sources) Encounter for general adult medical examination without abnormal findings; Translations: [Encounter for general adult medical examination without abnormal findings] Onset: 01-12-2018 Episodic Mood disorders (3 sources) Mood disorders Onset: 02-18-2025 02-18-2025 Nausea and vomiting (17 sources) Nausea; Translations: [Nausea] Onset: 07-19-2022 Episodic Nonspecific chest pain (20 sources) Chest pain; Translations: [Chest pain, unspecified] Onset: 04-05-2019 04-05-2019 Episodic Other aftercare (20 sources) Surgical follow-up; [...] Onset: 06-25-2022 Episodic Other connective tissue disease (20 sources) Muscle pain; Translations: [Myalgia, unspecified site] Onset: 11-14-2016 11-14-2016 Episodic Other connective tissue disease (20 sources) Muscle weakness; Translations: [Muscle weakness (generalized)] Onset: 11-14-2016 11-14-2016 Episodic Other connective tissue disease (17 sources) Rhabdomyolysis; Translations: [Paroxysmal rhabdomyolysis] Onset: 06-25-2022 06-10-2024 Episodic Other connective tissue disease (4 sources) Myalgia, unspecified site; Translations: [Myalgia, unspecified site] Onset: 01-22-2025 Episodic Other connective tissue disease (1 source) Other specified disorders of tendon, right shoulder; Translations: [Other specified disorders of tendon, right shoulder] Onset: 04-04-2025 Episodic Other gastrointestinal disorders (18 sources) Diarrhea; Translations: [Diarrhea, unspecified] Onset: 06-21-2022 Episodic Other gastrointestinal disorders (2 sources) Diarrhea, unspecified; Translations: [Diarrhea, unspecified] Onset: 06-21-2022 Episodic Other injuries and conditions due to external causes (2 sources) Systemic inflammatory response syndrome (SIRS) of non-infectious origin without acute organ dysfunction; Translations: [Systemic inflammatory response syndrome (sirs) of non-infectious origin without acute organ dysfunction] Onset: 02-13-2025 Episodic Other liver diseases (2 sources) Abnormal levels of other serum enzymes; Translations: [Abnormal levels of other serum enzymes] Onset: 02-13-2025 Episodic Other nervous system disorders (1 source) Chronic pain syndrome; Translations: [Chronic pain syndrome] Episodic Other non-traumatic joint disorders (20 sources) Pain in right shoulder; Translations: [Right shoulder pain] Onset: 04-04-2025 01-21-2025 Episodic Other non-traumatic joint disorders (1 [...] 05-18-2018 Episodic Respiratory failure; insufficiency; arrest (adult) (17 sources) Acute hypercapnic respiratory failure; Translations: [Acute respiratory failure with hypercapnia] Onset: 09-02-2024 09-02-2024 Episodic Unclassified (20 sources) [...] Test Name Value Interpretation Reference Range Facility ED Procedureon 09-12-2025 ED Procedure EKG 12-lead Date/Time: 09/11/2025 10:52 PM Performed by: Rene Luu MD Authorized by: Rene Luu MD Interpreted by ED attending physician Rhythm: sinus rhythm BPM: 72 Clinical impression: normal ECG AUTHENTICATED BY RENE LUU, ON 09/12/2025 04:15:26 Normal [facility] TROPONIN X 2 (NOW AND REPEAT IN 2 HOURS)on 09-12-2025 TROPONIN T DELTA CHANGE INTERPRETATION Probable non-acute cardiac injury or late presentation of acute injury. Normal [facility] Comment on above: Performed By: #### [id number] #### LAB [address] [address] Maurice Coello M.D. [id number] TROPONIN T DELTA DIFFERENCE -1 ng/L Normal < = -/+ 7 change [facility] Comment on above: Performed By: #### 4 [id number] #### LAB [address] [address] Maurice Coello M.D. [id number] TROPONIN T NG/L 17 ng/L Off scale high <=14 [facility] Comment on above: Performed By: #### 4 [id number] #### LAB [address] [address] Maurice Coello M.D. [id number] BASIC METABOLIC PANELon 0 Anion gap [Moles/Vol] 13 mmol/L Normal 10-20 [facility] Comment on above: Order Comment: [facility] has implemented the eGFR calculation approach that does not have a coefficient for race that conforms to the NKF-ASN Task Force Recommendations. Performed By: #### 4 [id number] #### LAB [address] [address] Maurice Coello M.D. [id number] Calcium [Mass/Vol] 9.2 mg/dL Normal 8.4-10.2 [facility] Comment on above: Order Comment: [facility] has implemented the eGFR calculation approach that does not have a coefficient for race that conforms to the NKF-ASN Task Force Recommendations. Performed By: #### 4 [id number] #### LAB [address] [place], [place] [address] Maurice Coello M.D. [id number] Chloride [Moles/Vol] 95 mmol/L Low 98-108 [facility] Comment on above: Order Comment: [facility] has implemented the eGFR calculation approach that does not have a coefficient for race that conforms to the NKF-ASN Task Force Recommendations. Performed By: #### 4 [id number] ####[facility] [address] [place], [place] [address] Maurice Coello M.D. [id number] Creatinine [Mass/Vol] 1.45 mg/dL High 0.60-1.20 [facility] Comment on above: Order Comment: [facility] has implemented the eGFR calculation approach that does not have a coefficient for race that conforms to the NKF-ASN Task Force Recommendations. Performed By: #### 4 [id number] #### LAB [address] [place], [place] [address] Maurice Coello M.D. [id number] EGFR 40 mL/min/1.73 m2 Low >=60 [facility] Comment on above: Order Comment: [facility] has implemented the eGFR calculation approach that does not have a coefficient for race that conforms to the NKF-ASN Task Force Recommendations. Result Comment: Ericka mated GFR was calculated using the 2020 CKD-EPI creatinine equation. Performed By: #### 4 [id number] ####[facility] [address] [place], [place] [address] Maurice Coello M.D. [id number] Glucose [Mass/Vol] 98 mg/dL Normal 65-99 [facility] Comment on above: Order Comment: [facility] has implemented the eGFR calculation approach that does not have a coefficient for race that conforms to the NKF-ASN Task Force Recommendations. Performed By: #### 4 [id number] #### LAB [address] [address] Maurice Coello M.D. [id number] HCO3 (Bld) [Moles/Vol] 29 mmol/L Normal 21-32 [facility] Comment on above: Order Comment: [facility] has implemented the eGFR calculation approach that does not have a coefficient for race that conforms to the NKF-ASN Task Force Recommendations. Performed By: #### 4 [id number] #### LAB [address] [address] Maurice Coello M.D. [id number] Potassium [Moles/Vol] 4.6 mmol/L Normal 3.5-5.1 [facility] Comment on above: Order Comment: [facility] has implemented the eGFR calculation approach that does not have a coefficient for race that conforms to the NKF-ASN Task Force Recommendations. Performed By: #### 4 [id number] #### LAB [address] [address] Maurice Coello M.D. [id number] Sodium [Moles/Vol] 132 mmol/L Low 135-145 [facility] Comment on above: Order Comment: [facility] has implemented the eGFR calculation approach that does not have a coefficient for race that conforms to the NKF-ASN Task Force Recommendations. Performed By: #### 4 [id number] ####[facility] [address] [address] Maurice Coello M.D. [id number] Urea nitrogen [Mass/Vol] 13 mg/dL Normal 8-25 [facility] Comment on above: Order Comment: [facility] has implemented the eGFR calculation approach that does not have a coefficient for race that conforms to the NKF-ASN Task Force Recommendations. Performed By: #### 4 [id number] #### LAB [address] [address] Maurice Coello M.D. [id number] Urea nitrogen/Creatinine [Mass ratio] 9.0 mg/mg Low 10.0-20.0 [facility] Comment on above: Order Comment: [facility] has implemented the eGFR calculation approach that does not have a coefficient for race that conforms to the NKF-ASN Task Force Recommendations. Performed By: #### 4 [id number] #### LAB [address] [place] [address] Maurice Coello M.D. [id number] CBC WITH AUTO DIFFERENTIALon 09-11-2025 AUTO NRBC 0.0 % [facility] Comment on above: Performed By: #### L [id number] #### LAB [address] [place] [address] Maurice Coello M.D. [id number] AUTO NRBC ABS COUNT 0.00 K/mcL Normal 0.00-0.00 [facility] Comment on above: Performed By: #### L [id number] #### LAB [address] [place] [address] Maurice Coello M.D. [id number] BASOPHILS ABSOLUTE COUNT 0.05 K/mcL Normal 0.00-0.30 [facility] Comment on above: Performed By: #### L [id number] #### LAB [address] [place] [address] Maurice Coello M.D. [id number] Basophils/100 WBC (Bld) 0.5 % Normal [facility] Comment on above: Performed By: #### L [id number] #### LAB [address] [place] [address] Maurice Coello M.D. [id number] Eosinophils (Bld) [#/Vol] 0.17 10*3/uL Normal 0.00-0.50 [facility] Comment on above: Performed By: #### L [id number] #### LAB [address] [place] [address] Maurice Coello M.D. [id number] Eosinophils/100 WBC (Bld) 1.8 % [facility] Comment on above: Performed By: #### L [id number] #### LAB [address] [place] [address] Maurice Coello M.D. [id number] Erythrocyte distribution width (RBC) [Ratio] 14.0 % Normal 11.6-14.8 [facility] Comment on above: Performed By: #### L [id number] #### LAB [address] [address] Maurice Coello M.D. [id number] Hematocrit (Bld) [Volume fraction] 32.9 % Low 36.0-46.0 [facility] Comment on above: Performed By: #### L [id number] #### LAB [address] [place] [address] Maurice Coello M.D. [id number] Hemoglobin (Bld) [Mass/Vol] 9.8 g/dL Low 12.0-16.0 [facility] Comment on above: Performed By: #### L [id number] #### LAB [address] [place] [address] Maurice Coello M.D. [id number] IG ABSOLUTE 0.04 K/mcL Normal 0.00-0.30 [facility] Comment on above: Performed By: #### L [id number] #### LAB [address] [place] [address] Maurice Coello M.D. [id number] IG PERCENT 0.40 % Normal [facility] Comment on above: Result Comment: The IG parameter is the percentage of metamyelocytes, myelocytes and promyelocytes. An immature granulocyte count (IG) of 1% or more suggests the possibility of infection, an IG count of 3% is very likely related to an infection. Performed By: #### L [id number] #### LAB [address] [place] [address] Maurice Coello M.D. [id number] Lymphocytes (Bld) [#/Vol] 1.52 10*3/uL Normal 0.90-4.00 [facility] Comment on above: Performed By: #### L [id number] #### LAB [address] [place], [place] [address] Maurice Coello M.D. [id number] Lymphocytes/100 WBC (Bld) 16.0 % Normal [facility] Comment on above: Performed By: #### L [id number] #### LAB [address] [address] Maurice Coello M.D. [id number] MCH (RBC) [Entitic mass] 26.6 pg Normal 26.0-34.0 [facility] Comment on above: Performed By: #### L [id number] #### LAB [address] [address] Maurice Coello M.D. [id number] MCV (RBC) [Entitic vol] 89.2 fL Normal 80.0-100.0 [facility] Comment on above: Performed By: #### L [id number] #### LAB [address] [address] Maurice Coello M.D. [id number] MEAN CORPUSCULAR HEMOGLOBIN CONC 29.8 g/dL Low 31.0-37.0 [facility] Comment on above: Performed By: #### L [id number] #### LAB [address] [address] Maurice Coello M.D. [id number] Monocytes (Bld) [#/Vol] 0.65 10*3/uL Normal 0.30-0.90 [facility] Comment on above: Performed By: #### L [id number] #### LAB [address] [address] Maurice Coello M.D. [id number] Monocytes/100 WBC (Bld) 6.8 % Normal [facility] Comment on above: Performed By: #### L [id number] #### LAB [address] [address] Maurice Coello M.D. [id number] NEUTROPHILS ABSOLUTE COUNT 7.06 K/mcL High 1.70-7.00 [facility] Comment on above: Performed By: #### L [id number] #### LAB [address] [address] Maurice Coello M.D. [id number] Neutrophils/100 WBC (Bld) 74.5 % Normal [facility] Comment on above: Performed By: #### L [id number] #### LAB [address] [address] Maurice Coello M.D. [id number] Platelet mean volume (Bld) [Entitic vol] 9.6 fL Normal 9.4-12.4 [facility] Comment on above: Performed By: #### L [id number] #### LAB [address] [address] Maurice Coello M.D. [id number] Platelets (Bld) [#/Vol] 230 10*3/uL Normal 150-400 [facility] Comment on above: Performed By: #### L [id number] #### LAB [address] [address] Maurice Coello M.D. [id number] RBC (Bld) [#/Vol] 3.69 10*6/uL Low 4.00-5.20 [facility] Comment on above: Performed By: #### L [id number] #### LAB [address] [address] Maurice Coello M.D. [id number] WBC (Bld) [#/Vol] 9.49 10*3/uL Normal 4.50-11.00 [facility] Comment on above: Performed By: #### L [id number] #### LAB [address] [place] [address] Maurice Coello M.D. [id number] COVID-19/INFLUENZA A,B MARIA DOLORES [place] 09-11-2025 SARS-CoV-2 (COVID-19) Ab IA Ql SARS-COV-2 (SOFIE) Not Detected INFLUENZA A (SOFIE) Not Detected INFLUENZA B (SOFIE) Not Detected Normal Not Detected [facility] Comment on above: Performed By: #### L [id number] #### LAB [address] [place] [address] Maurice Coello M.D. [id number] CPKon 09-11-2025 CPK 251 U/L High 40-170 [facility] Comment on above: Performed By: #### 4 [id number] #### LAB [address] [place], [place] [address] Maurice Co[address] M[address]D. [id number] CT PULMONARY ARTERIESon 11-0 CT PULMONARY ARTERIES EXAMINATION: CT PULMONARY ARTERIES HISTORY: ORDERING SYSTEM PROVIDED HISTORY: Pulmonary embolism (PE) suspected, low to intermediate prob, positive D-dimer, TECHNOLOGIST PROVIDED HISTORY: Illness/Other Reason for exam: Pt to ED by EMS from home with c/o SOB. Pt states this has been going on for about 2 weeks worse than normal with congestion and mucus build up. Pt is chronic on 3lt oxygen. PT states today she had pressure in her chest and a pain shoot in the corner of her L shoulder that went to her neck and back of her throat. Encounter Type: Initial Additional signs and symptoms: . ORDERING SYSTEM PROVIDED DIAGNOSIS CODES: COMPARISON: 09/24/2022 TECHNIQUE: CT angiography of the pulmonary arteries following the administration of intravenous contrast. Coronal and sagittal MIP images were performed. Dose reduction techniques were achieved by using automated exposure control and/or adjustment of mA and/or kV according to patient size and/or use of iterative reconstruction technique. CONTRAST: IOPAMIDOL 370 MG IODINE/ML (76 %) INTRAVENOUS SOLUTION - 75 mL, FINDINGS: Lungs: Interval development of a moderate lingular infiltrate. There is additional tiny left upper lung infiltrate. There is also mild right basilar infiltrate. Pleura: No effusions. No pneumothorax. Cardiovascular: No evidence of pulmonary embolism. The heart and aorta are normal. The main pulmonary artery is normal. Mediastinum: Normal thyroid, trachea, and esophagus. Lymph nodes: No adenopathy. Upper abdomen: Cholecystectomy. Skeletal: No lytic or sclerotic lesions. There are no fractures. IMPRESSION: 1. Interval development of a moderate lingular infiltrate with tiny additional left upper lung infiltrate consistent with pneumonia. Small additional right basilar infiltrate. 2. No sign of pulmonary embolism. Workstation ID: [id number] Dictated by: CARY MARTINEZ on MonSep 12, 2025 2:03:37 AM EST Transcribed by: CARY MARTINEZ on MonSep 12, 2025 2:03:37 AM EST Finalized by: CARY MARTINEZ on MonSep 12, 2025 2:03:37 AM EST Normal [facility] Comment on above: Order Comment: Injur y/Trauma or Illness?:Illness/OtherHow long have you had these symptoms (acute/chronic)?:AcuteReason for exam?:Pt to ED by EMS from home with c/o SOB. Pt states this has been going on for about 2 weeks worse than normal with congestion and mucus build up. Pt is chronic on 3lt oxygen. PT states today she had pressure in her chest and a pain shoot in the corner of her L shoulder that went to her neck and back of her throat.Type of Exam?:InitialAdditional signs and symptoms?:. D-DIMER, QUANTITATIVEon 11-0 D-DIMER QUANTITATIVE 1.31 mcg/mL FEU High 0.27-0.49 [facility] Comment on above: Order Comment: A D-d veronica concentration of <0.5 micrograms per milliliter FEU is considered a low probability for pulmonary embolus (PE) and deep venous thrombosis (DVT). Results of this test should always be interpreted in conjunction with the patient's medical history,clinical presentation, and other findings. Clinical diagnosis should not be based on the results of the D-dimer alone. Performed By: #### [id number] #### [facility] [address] [id number] Maurice Coello M.D. [id number] ED Prov Noteon 09-11-2025 ED Prov Note [facility] EMERGENCY DEPARTMENT ATTENDING NOTE: NAME: Radha Shafer CSN: [id number] 65 y.o. PCP: No, Physician History: Chief Complaint: Shortness of Breath HPI: The history was obtained from the patient. Radha is a 65 y.o. female who presents with a chief complaint of Shortness of Breath. Per triage Pt to ED by EMS from home with c/o SOB. Pt states this has been going on for about 2 weeks worse than normal with congestion and mucus build up. Pt is chronic on 3lt oxygen. PT states today she had pressure in her chest and a pain shoot in the corner of her L shoulder that went to her neck and back of her throat. PMHx: Past Medical History: Diagnosis Date Anxiety [...] Angiogram; Surgeon: Tor Long MD; Location: [facility]; Service: Cardiovascular CARDIOVASCULAR STRESS TEST CHOLECYSTECTOMY COLONOSCOPY with biopsies COLONOSCOPY N/A 02/17/2022 Procedure: COLONOSCOPY; Surgeon: Jada Vargas MD; [place] [facility] [place] Service: Colorectal EGD N/A 08/15/2022 Procedure: ESOPHAGOGASTRODUODENOSC OPY WITH BIOPSY; Surgeon: Tyshawn Santos MD; Location: [facility]; Service: Gastroenterology GALLBLADDER HC LEFT HEART CATH N/A 09/26/2022 Procedure: Left Heart Cath; Surgeon: Tor Long MD; Location: [facility]; Service: Cardiovascular HYSTERECTOMY JOINT REPLACEMENT Left knee ORTHOPEDIC SURGERY r wrist surgery, left ankle, right rotator cuff ROTATOR CUFF REPAIR Right SIGMOIDOSCOPY FLEXIBLE N/A 06/23/2022 Procedure: SIGMOIDOSCOPY FLEXIBLE WITH BIOPSY; Surgeon: Tyshawn Santos MD; Location: [facility]; Service: Gastroenterology THYROIDECTOMY N/A 07/15/2015 Procedure: TOTAL THYROIDECTOMY; Surgeon: Lopez Alonso MD; Location: [facility]; Service: US ECHO TRANSTHORACIC FOLLOWUP [...] cancer Neg Hx SOC. Hx: Social History [1] MEDs: Previous Medications Medication Sig albuterol (PROVENTIL) 2.5 mg /3 mL (0.083 %) nebulizer solution Take by nebulization every 6 (six) hours as needed for wheezing . (Patient not taking: Reported on 04/30/2025 .) albuterol 90 mcg/actuation inhaler Inhale 2 (two) [...] total) by mouth daily with breakfast . slawbleyjdo-nmozdcoad-p ilanter (Trelegy Ellipta) 200-62.5-25 mcg DsDv Inhale 1 (one) Inhalation daily . furosemide (LASIX) 20 MG tablet Take 1 (one) tablet (20 mg total) by mouth daily . (Patient not taking: Reported on 04/30/2025 .) levothyroxine (SYNTHROID, LEVOTHROID) 175 MCG tablet Take 1 (one) tablet (175 mcg total) by mouth daily in the evening . lisinopriL (PRINIVIL,ZESTRIL) 20 MG tablet Take 1 (one) tablet (20 mg total) by mouth daily . lovastatin (MEVACOR) 10 MG tablet Ronal (more content not included)... Normal [facility] NT PRO BNPon 09-11-2025 Natriuretic peptide B (Bld) [Mass/Vol] 621 pg/mL High 0-300 [facility] Comment on above: Order Comment: Injur y/Trauma or Illness?:Illness/Other How long have you had these symptoms (acute/chronic)?:Acute Reason for exam?:sob. Hx of COPD History of cancer?:unknown Surgeries, chemotherapy, or radiation?:cholecystectomy, hysterectomy, oophrectomy, left knee replacement Type of Exam?:Initial Additional signs and symptoms?:. Performed By: #### [id number] #### LAB [address] [place], [place] [address] Maurice Coello M.D. [id number] POC VENOUS BLOOD GAS ONLY PA NELon 09-11-2025 BASE EXCESS, VENOUS 4.8 mmol/L High -2.0-2.0 [facility] FIO2 32 Normal [facility] HCO3 (Bld) [Moles/Vol] 30.8 mmol/L High 24.0-28.0 [facility] Hematocrit (Bld) [Volume fraction] 30.0 % Low 36.0-46.0 [facility] Hemoglobin (Bld) [Mass/Vol] 10.0 g/dL Low 12.0-16.0 [facility] LITER FLOW 3 Normal [facility] Oxygen saturation in Blood 74.4 % High 40.0-70.0 [facility] PCO2 VENOUS 52.0 mm Hg High 41.0-51.0 [facility] PH VENOUS 7.38 Normal 7.32-7.42 [facility] PO2 VENOUS 45 mm Hg High 25-40 [facility] TROPONIN X 2 (NOW AND REPEAT IN 2 HOURS)on 09-11-2025 BASELINE TROPONIN T NG/L 18 ng/L Off scale high <=14 [facility] Comment on above: Performed By: #### [id number] #### LAB [address] [place], [place] [address] Maurice Coello M.D. [id number] TROPONIN T INTERPRETATION Possible acute cardiac injury. Normal [facility] Comment on above: Performed By: #### 4 [id number] #### LAB [address] [place], [place] [address] Maurice Coello M.D. [id number] XR CHEST PA/APon 09-11-2025 XR CHEST PA/AP EXAMINATION: XR CHEST PA/AP HISTORY: ORDERING SYSTEM PROVIDED HISTORY: sob cp, TECHNOLOGIST PROVIDED HISTORY: Illness/Other Reason for exam: sob cp, pt has worsening cough and congesion x2 weeks Cancer History: unknown Surgery, RadiationHistory: cholecystectomy, hysterectomy, oophrectomy, left knee replacement Encounter Type: Initial Additional signs and symptoms: pt chronically wears oxygen ORDERING SYSTEM PROVIDED DIAGNOSIS CODES: COMPARISON: 02/16/2025 FINDINGS: The lungs are clear of airspace consolidation. There is no appreciable pneumothorax or pleural effusion. The pulmonary vascularity is within normal limits for technique. The cardiomediastinal silhouette is within normal limits. IMPRESSION: Lungs are clear of airspace infiltrates. Workstation ID: [id number] Dictated by: JONATAN CARDENAS on MonSep 11, 2025 10:01:18 PM EST Transcribed by: JONATAN CARDENAS on MonSep 11, 2025 10:01:18 PM EST Finalized by: JONATAN CARDENAS on MonSep 11, 2025 10:01:18 PM EST Normal [facility] Comment on above: Order Comment: Injur y/Trauma or Illness?:Illness/OtherHow long have you had these symptoms (acute/chronic)?:AcuteReason for exam?:sob cp, pt has worsening cough and congesion x2 weeksHistory of cancer?:unknownSurgeries, chemotherapy, or radiation?:cholecystectomy, hysterectomy, oophrectomy, left knee replacementType of Exam?:InitialAdditional signs and symptoms?:pt chronically wears oxygen Neurology Visit Reporton Neurology Visit Report Normal [facility] ED Prov Noteon 08-11-2025 ED Prov Note ED PROVIDER NOTE [facility] EMERGENCY DEPARTMENT NAME: Radha Shafer AGE: 65 y.o. : 1960 VISIT DATE: 08/11/2025 CSN: [id number] PCP: No, Physician Chief Complaint Patient presents with Toe Pain Patient is a 65-year-old female with a past medical history of arthritis, cancer, depression, diabetes, GERD, hypertension, chronic kidney disease, lung disease, neuromuscular disorder, who presents today for concern of foot pain. Patient states he got up in melanite and excellently kicked a vacuum. Patient admits to pain in her right 4th and 5th digits. Patient states she typically has neuropathy but now has pain. Patient not wanting pain medication because she states she smokes marijuana for pain. Patient denies any previous fractures or dislocations of the right foot. Patient Nuys any paresthesias or loss of function or distal constitutional symptoms. Past Medical History: Diagnosis Date Anxiety Arthritis [...] Angiogram; Surgeon: Tor Long MD; Location: [facility]; Service: Cardiovascular CARDIOVASCULAR STRESS TEST CHOLECYSTECTOMY COLONOSCOPY with biopsies COLONOSCOPY N/A 02/17/2022 Procedure: COLONOSCOPY; Surgeon: Jada Vargas MD; [place] [facility] [place]; Service: Colorectal EGD N/A 08/15/2022 Procedure: ESOPHAGOGASTRODUODENOSC OPY WITH BIOPSY; Surgeon: yTshawn Santos MD; Location: [facility]; Service: Gastroenterology GALLBLADDER HC LEFT HEART CATH N/A 09/26/2022 Procedure: Left Heart Cath; Surgeon: Tor Long MD; Location: [facility]; Service: Cardiovascular HYSTERECTOMY JOINT REPLACEMENT Left knee ORTHOPEDIC SURGERY r wrist surgery, left ankle, right rotator cuff ROTATOR CUFF REPAIR Right SIGMOIDOSCOPY FLEXIBLE N/A 06/23/2022 Procedure: SIGMOIDOSCOPY FLEXIBLE WITH BIOPSY; Surgeon: Tyshawn Santos MD; Location: [facility]; Service: Gastroenterology THYROIDECTOMY N/A 07/15/2015 Procedure: TOTAL THYROIDECTOMY; Surgeon: Lopez Alonso MD; Location: [facility]; Service: US ECHO TRANSTHORACIC FOLLOWUP [...] Grandfather Breast cancer Neg Hx Social History [1] Previous Medications Medication Sig albuterol (PROVENTIL) 2.5 mg /3 mL (0.083 %) nebulizer solution Take by nebulization every 6 (six) hours as needed for wheezing . (Patient not taking: Reported on 04/30/2025 .) albuterol 90 mcg/actuation inhaler Inhale 2 (two) [...] total) by mouth daily with breakfast . rlwcezjmtvr-xythoylyq-e ilanter (Trelegy Ellipta) 200-62.5-25 mcg DsDv Inhale 1 (one) Inhalation daily . furosemide (LASIX) 20 MG tablet Take 1 (one) tablet (20 mg total) by mouth daily . (Patient not taking: Reported on 04/30/2025 .) levothyroxine (SYNTHROID, LEVOTHROID) 175 MCG (more content not included)... [facility] XR FOOT RIGHT 3+ VIEWS (LUKE HENDERSON)on 08-11-2025 XR FOOT RIGHT 3+ VIEWS (STANDARD) EXAMINATION: XR FOOT RIGHT 3+ VIEWS (STANDARD) 08/11/2025 1:18 pm HISTORY: ORDERING SYSTEM PROVIDED HISTORY: kicked vacuum,4th and fifth digit pain, TECHNOLOGIST PROVIDED HISTORY: Injury/Trauma Reason for exam: 4th and 5th toe pain Cancer History: unknown Surgery, RadiationHistory: cholecystectomy, hysterectomy, oophrectomy, left knee replacement Encounter Type: Initial Mechanism of injury: Pt reports got out of bed last night and kicked vacuum. Pain mostly in 5th digit ORDERING SYSTEM PROVIDED DIAGNOSIS CODES: M79.674 Pain of toe of right foot FINDINGS: Three views of the left foot, cone down view of the 5th digit included. Examination is mildly limited by flexion of the 3rd through 5th digits at the PIP joints. The alignment is anatomic. The joints are maintained. The soft tissues are grossly unremarkable IMPRESSION: No acute osseous abnormality within the limitations of the study. Workstation ID: [id number] Dictated by: BRANDO MORENO on MonAug 11, 2025 5:45:53 PM EDT Transcribed by: BRANDO MORENO on MonAug 11, 2025 5:45:53 PM EDT Finalized by: BRANDO MORENO on MonAug 11, 2025 5:45:53 PM EDT [facility] Comment on above: Order Comment: Injur y/Trauma or Illness?:Injury/Trauma How long have you had these symptoms (acute/chronic)?:Acute Reason for exam?:4th and 5th toe pain History of cancer?:unknown Surgeries, chemotherapy, or radiation?:cholecystectomy, hysterectomy, oophrectomy, left knee replacement Type of Exam?:Initial Mechanism of injury?:Pt reports got out of bed last night and kicked vacuum. Pain mostly in 5th digit Acylcarnitines, Quantitative , Plasma & Serumon 07-24-2025 C10, Decanoylcarnitine 0.26 umol/L Normal <1.05 [facility] Comment on above: Performed By: #### S PACP #### [place] [address] C10_1, Decenoylcarnitine 0.13 umol/L Normal <0.53 [facility] Comment on above: Performed By: #### S PACP #### [place] [address] C10_2, Decadienoylcarnitine <0.03 Normal <0.30 [facility] Comment on above: Performed By: #### S PACP #### [place] [address] C12, Dodecanoylcarnitine 0.24 umol/L Normal <0.34 [facility] Comment on above: Performed By: #### S PACP #### [place] [address] C12-OH, 7-YO-glrqsuvgkbqnaa <0.03 Normal <0.09 [facility] Comment on above: Performed By: #### S PACP #### [place] [address] C12_1, Dodecenoylcarnitine 0.13 umol/L Normal <0.35 [facility] Comment on above: Performed By: #### S PACP #### [place] [address] C14, Tetradecanoylcarnitine 0.23 umol/L High <0.17 [facility] Comment on above: Performed By: #### S PACP #### [place] [address] C14-OH, 5-UZ-hcbtwtayofzsnjlkx <0.02 Normal <0.08 [facility] Comment on above: Performed By: #### S PACP #### [place] [address] C14_1, Tetradecenoylcarn 0.13 umol/L Normal <0.32 [facility] Comment on above: Performed By: #### S PACP #### [place] [address] J46_4-EY, 1-VI-Slydzwpzzbxpkqv 0.05 umol/L Normal <0.13 [facility] Comment on above: Performed By: #### S PACP #### Performed at [facility], [address], [place] [address] C14_2, Tetradecadienoylcarn 0.04 umol/L Normal <0.22 [facility] Comment on above: Performed By: #### S PACP #### [place] [address] C16, Hexadecanoylcarnitine 0.82 umol/L High <0.29 [facility] Comment on above: Performed By: #### S PACP #### [place] [address] C16-OH, 1-EO-ctkplfbiybsjbczd <0.04 Normal <0.06 [facility] Comment on above: Performed By: #### S PACP #### [place] [address] C16_1, Hexadecenoylcarnitine 0.25 umol/L High <0.10 [facility] Comment on above: Performed By: #### S PACP #### [place] [address] E92_4-AJ, 6-EN-bvjruanuieukvej 0.04 umol/L Normal <0.07 [facility] Comment on above: Performed By: #### S PACP #### [place] [address] C18, Stearoylcarnitine 0.22 umol/L High <0.17 [facility] Comment on above: Performed By: #### S PACP #### [place] [address] C18-OH, 9-CI-Aijeublobobxvequi <0.05 Normal <0.07 [facility] Comment on above: Performed By: #### S PACP #### [place] [address] C18_1, Oleylcarnitine 0.99 umol/L High <0.43 [facility] Comment on above: Performed By: #### S PACP #### [place] [address] W94_0-XU, 4-QJ-rvmrwiupz <0.05 Normal <0.10 [facility] Comment on above: Performed By: #### S PACP #### [place] [address] C18_2, Linoleylcarnitine 0.29 umol/L High <0.26 [facility] Comment on above: Performed By: #### S PACP #### [place] [address] Z11_3-RG, 2-UH-komaknbludxz <0.05 Normal <0.11 [facility] Comment on above: Performed By: #### S PACP #### [place] [address] C2, Acetylcarnitine 11.09 umol/L Normal 2.84-25.30 [facility] Comment on above: Performed By: #### S PACP #### [place] [address] C3, Propionylcarnitine 0.56 umol/L Normal <1.00 [facility] Comment on above: Performed By: #### S PACP #### [place] [address] C3-DC, Malonylcarnitine <0.06 Normal <0.14 [facility] Comment on above: Performed By: #### S PACP #### [place] [address] C4, Iso-/Butyrylcarnitine 0.60 umol/L Normal <1.01 [facility] Comment on above: Performed By: #### S PACP #### [place] [address] C4-DC, Methylmalonyl-/succinyl 0.06 umol/L Normal <0.25 [facility] Comment on above: Performed By: #### S PACP #### [place] [address] C4-OH, 3-OH-iso/butyrylcarn <0.03 Normal <0.40 [facility] Comment on above: Performed By: #### S PACP #### [place] [address] C5, Isovaleryl-/2-Methylbut yry 0.10 umol/L Normal <0.65 [facility] Comment on above: Performed By: #### S PACP #### [place] [address] C5-DC, Glutarylcarnitine 0.05 umol/L Normal <0.18 [facility] Comment on above: Performed By: #### S PACP #### [place] [address] C5-OH, 4-ZJ-pbebynpkjqtzxp <0.04 Normal <0.20 [facility] Comment on above: Performed By: #### S PACP #### [place] [address] C5_1, Tiglylcarnitine <0.05 Normal <0.15 [facility] Comment on above: Performed By: #### S PACP #### [place] [address] C6, Hexanoylcarnitine 0.06 umol/L Normal <0.42 [facility] Comment on above: Performed By: #### S PACP #### [place] [address] C6-DC, Adipylcarnitine 0.09 umol/L Normal <0.13 [facility] Comment on above: Performed By: #### S PACP #### [place] [address] C6-OH, 4-MM-aqbpfytonneyetppl <0.02 Normal <0.20 [facility] Comment on above: Performed By: #### S PACP #### [place] [address] C8, Octanoylcarnitine 0.14 umol/L Normal <1.00 [facility] Comment on above: Performed By: #### S PACP #### [place] [address] C8-DC, Suberylcarnitine <0.04 Normal <0.10 [facility] Comment on above: Performed By: #### S PACP #### [place] [address] C8_1, Octenoylcarnitine 0.27 umol/L Normal <0.97 [facility] Comment on above: Performed By: #### S PACP #### [place] [address] Free Carnitine 46.60 umol/L Normal 22-52 [facility] Comment on above: Performed By: #### S PACP #### [place] [address] Interpretation Normal [facility] Comment on above: Result Comment: Inte rpretation: Clinical correlation suggested. 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 Performed By: #### S PACP #### [place] [address] Total Carnitine 60.28 umol/L Normal 27-66 [facility] Comment on above: Performed By: #### S PACP #### [place] [address] Acylcarnitines, Quantitative , Plasma & Serumon 07-23-2025 Note: This test was develo ped and its performance characteristics determined by [facility]. It has not been cleared or approved by the FDA. The laboratory is regulated under CLIA as qualified to perform high complexity testing. This test is used for clinical purposes. It should not be regarded as investigational or for research. Normal [facility] Comment on above: Performed By: #### S PACP #### [place] [address] CBC Auto Diff Reflex Manualo n 07-23-2025 Absolute Basophils 0.1 10*3/uL High <0.1 [facility] Absolute Eosinophils 0.2 10*3/uL Normal 0.0-0.4 [facility] Absolute Immature Granulocytes 0.0 10*3/uL Normal <0.1 [facility] Absolute Lymphocytes 1.5 10*3/uL Normal 1.2-3.5 [facility] Absolute Monocytes 0.6 10*3/uL Normal 0.2-0.9 [facility] Absolute Neutrophils 7.8 10*3/uL High 1.6-7.3 [facility] Automated Absolute Neutrophil 7.8 10*3/uL High 1.6-7.3 [facility] Comment on above: Result Comment: Auto mated Absolute Neutrophil Count (ANC) is directly measured using a hematology instrument. ANC determined from manual differential cell count may differ. Basophil 0.9 % Normal 0.2-1.6 [facility] Differential Type Automated Normal [facility] Eosinophil 1.8 % Normal 0.2-8.1 [facility] Immature Granulocytes 0.3 % Normal <0.7 [facility] Lymphocyte 14.2 % Normal 9.0-51.0 [facility] MCH 26.9 pg Normal 26.0-34.0 [facility] MCHC 31.3 % Normal 31.0-37.0 [facility] MCV 85.8 fL Normal 80.0-100.0 [facility] Monocyte 6.2 % Normal 4.0-13.0 [facility] MPV 10.8 fL Normal 8.8-13.0 [facility] Neutrophil 76.6 % Normal 40.8-78.2 [facility] Platelet Count 288 10*3/uL Normal 142-508 [facility] RBC 4.1 10*6/uL Normal 4.0-5.2 [facility] RDW 13.2 % Normal 10-14.1 [facility] WBC 10.2 10*3/uL Normal 4.5-11.0 [facility] CBC W Differential panel, me thod unspecified (Bld)on 07-23-2025 Basophils (Bld) [#/Vol] 0.1 10*3/uL High NINF - 0.1 10*3/uL [facility] Basophils/100 WBC (Bld) 0.9 % 0.2 - 1.6 % [facility] Differential cell count method Nom (Bld) Automated [facility] Eosinophils (Bld) [#/Vol] 0.2 10*3/uL 0.0 - 0.4 10*3/uL [facility] Eosinophils/100 WBC (Bld) 1.8 % 0.2 - 8.1 % [facility] Erythrocyte distribution width (RBC) [Ratio] 13.2 % 10 - 14.1 % [facility] Hematocrit (Bld) [Volume fraction] 35.1 % Low 36.0 - 46.0 % [facility] Hemoglobin (Bld) [Mass/Vol] 11.0 g/dL Low 12.0 - 16.0 g/dL [facility] Immature granulocytes (Bld) [#/Vol] 0.0 10*3/uL NINF - 0.1 10*3/uL [facility] Immature granulocytes/100 WBC (Bld) 0.3 % NINF - 0.7 % [facility] Interpretation and review of laboratory results Abnormal [facility] Lymphocytes (Bld) [#/Vol] 1.5 10*3/uL 1.2 - 3.5 10*3/uL [facility] Lymphocytes/100 WBC (Bld) 14.2 % 9.0 - 51.0 % [facility] MCH (RBC) [Entitic mass] 26.9 pg 26.0 - 34.0 pg [facility] MCHC (RBC) [Mass/Vol] 31.3 % 31.0 - 37.0 % [facility] MCV (RBC) [Entitic vol] 85.8 fL 80.0 - 100.0 fL [facility] Monocytes (Bld) [#/Vol] 0.6 10*3/uL 0.2 - 0.9 10*3/uL [facility] Monocytes/100 WBC (Bld) 6.2 % 4.0 - 13.0 % [facility] Neutrophils (Bld) [#/Vol] 7.8 10*3/uL High 1.6 - 7.3 10*3/uL [facility] Comment on above: Automated Absolute N eutrophil Count (ANC) is directly measured using a hematology instrument. ANC determined from manual differential cell count may differ. Neutrophils/100 WBC (Bld) 76.6 % 40.8 - 78.2 % [facility] Platelet mean volume (Bld) [Entitic vol] 10.8 fL 8.8 - 13.0 fL [facility] Platelets (Bld) [#/Vol] 288 10*3/uL 142 - 508 10*3/uL [facility] RBC (Bld) [#/Vol] 4.1 10*6/uL 4.0 - 5.2 10*6/uL [facility] WBC (Bld) [#/Vol] 10.2 10*3/uL 4.5 - 11.0 10*3/uL [facility] CKon 07-23-2025 CK [Catalytic activity/Vol] 73 U/L Normal <289 [facility] Comprehensive Metabolic Pane jett 07-23-2025 Albumin [Mass/Vol] 4.2 g/dL Normal 3.4-5.2 [facility] ALP [Catalytic activity/Vol] 87 U/L Normal 50-136 [facility] ALT [Catalytic activity/Vol] 18 U/L Normal <36 [facility] AST [Catalytic activity/Vol] 28 U/L Normal 15-50 [facility] Bilirubin [Mass/Vol] 0.2 mg/dL Normal 0.1-1.0 [facility] Calcium [Mass/Vol] 8.7 mg/dL Normal 8-10.5 [facility] Chloride [Moles/Vol] 93 mmol/L Low 98-110 [facility] CO2 [Moles/Vol] 30 mmol/L Normal 21-30 [facility] Creatinine [Mass/Vol] 1.72 mg/dL High 0.5-1 [facility] Glucose [Mass/Vol] 95 mg/dL Normal 60-115 [facility] Potassium [Moles/Vol] 5.2 mmol/L High 3.6-4.9 [facility] Protein [Mass/Vol] 7.9 g/dL Normal 6.5-8.6 [facility] Sodium [Moles/Vol] 131 mmol/L Low 135-145 [facility] Urea nitrogen [Mass/Vol] 28 mg/dL High 5-18 [facility] Comprehensive metabolic 2000 panelon 07-23-2025 Interpretation and review of laboratory results Abnormal [facility] No Panel Informationon 07-23 [facility] Absolute lymphocyte countOrd ered By: Arnel Cano on 07-20-2025 Lymphocytes Auto (Unsp spec) [#/Vol] 1.46 10*3/uL 0.83-4.[address] [facility] Absolute neutrophil countOrd ered By: Arnel Cano on 07-20-2025 Neutrophils (Bld) [#/Vol] 4.7 10*3/uL 2.0-7.[address] [facility] Anion gap in Serum or Plasma Ordered By: Arnel Cano on 07-20-2025 Anion gap [Moles/Vol] 10 mmol/L 5-15 [facility] Automated lymphocyte count a s percentage of total leukocytesOrdered By: Arnel Cano on 07-20-2025 Lymphocytes/100 WBC Auto (Unsp spec) 21.1 % -[address] [facility] BUN/creatinine ratioOrdered By: Arnel Cano on 07-20-2025 Urea nitrogen/Creatinine [Mass ratio] 8.2 mg/mg Low 10-[address] [facility] Basic Metabolic Profile (BMP )on 07-20-2025 BUN/CRE 8.2 RATIO Low 10-[address] [facility] Comment on above: Performed By: #### L 500.2500, L100.0100 ####[facility] [id number] [place], [address] Calcium [Mass/Vol] 9.0 mg/dL Normal 7.6-11.0 [facility] [facility] Comment on above: Performed By: #### L 500.2500, L100.0100 ####[facility] [address] [place], [address] Chloride [Moles/Vol] 94 mmol/L Low 98-108 [facility] Comment on above: Performed By: #### L 500.2500, L100.0100 ####[facility] [address] [place], [address] CO2 [Moles/Vol] 26.4 mmol/L Normal 21.0-32.[address] [facility] Comment on above: Performed By: #### L 500.2500, L100.0100 ####[facility] [address] [place], [address] Creatinine [Mass/Vol] 1.47 mg/dL High 0.70-1.20 [facility] Comment on above: Performed By: #### L 500.2500, L100.0100 ####[facility] [address] [place], [address] ECRCL 43.55 ml/min Low 50-[address] [facility] Comment on above: Performed By: #### L 500.2500, L100.0100 ####[facility] [address] [place], [address] GAP 10 Normal 5-[address] [facility] Comment on above: Performed By: #### L 500.2500, L100.0100 ####[facility] [address] [place], [address] GFR/1.73 sq M.predicted among non-blacks MDRD (S/P/Bld) [Vol rate/Area] 39 mL/min/{1.73_m2} Low >[address] [facility] Comment on above: Result Comment: mL/m in/1.73m2 CKD-EPI Creatinine Equation (2020) Performed By: #### L 500.2500, L100.0100 ####[facility] [address] [place], [address] Glucose [Mass/Vol] 97 mg/dL Normal 70-99 [facility] Comment on above: Performed By: #### L 500.2500, L100.0100 ####[facility] [address] [place], [address] Potassium [Moles/Vol] 4.6 mmol/L Normal 3.3-5.1 [facility] Comment on above: Performed By: #### L 500.2500, L100.0100 ####[facility] [address] [place], [address] Sodium [Moles/Vol] 130 mmol/L Low 133-145 [facility] Comment on above: Performed By: #### L 500.2500, L100.0100 ####[facility] [address] [place], [address] Urea nitrogen [Mass/Vol] 12 mg/dL Normal 4-[address] [facility] Comment on above: Performed By: #### L 500.2499, L100.0100 ####[facility] [address] [place], [address] Basophil percentageOrdered B y: Arnel Cano on 07-20-2025 Basophils/100 WBC (Bld) 0.7 % 0-1 [facility] CBC W/Diff, Automatedon 07-07 Absolute Lymph 1.46 X10 3/uL Normal 0.83-4.[address] [facility] Comment on above: Performed By: #### L 500.2499, L100.0100 ####[facility] [address] [place], [address] Absolute Neut 4.7 X10 3/uL Normal 2.0-7.[address] [facility] Comment on above: Performed By: #### L 500.2500, L100.0100 ####[facility] [address] [place], [address] Basophils/100 WBC (Bld) 0.7 % Normal 0-1 [facility] Comment on above: Performed By: #### L 500.2500, L100.0100 ####[facility] [address] [place], [address] Eosinophils/100 WBC (Bld) 2.7 % Normal 0-[address] [facility] Comment on above: Performed By: #### L 500.2500, L100.0100 ####[facility] [address] [place], [address] Erythrocyte distribution width (RBC) [Ratio] 13.2 % Normal 11.6-14.[address] [facility] Comment on above: Performed By: #### L 500.2500, L100.0100 ####[facility] [address] [place], [address] Hematocrit (Bld) [Volume fraction] 32.6 % Low 37-[address] [facility] Comment on above: Performed By: #### L 500.2500, L100.0100 ####[facility] [address] [place], [address] Hemoglobin (Bld) [Mass/Vol] 10.4 g/dL Low 12.0-15.[address] [facility] Comment on above: Performed By: #### L 500.2500, L100.0100 ####[facility] [address] [place], [address] IG% 0.400 Normal 0.0-0.[address] [facility] Comment on above: Result Comment: IG% - Immature Granulocytes (promyelocytes, myelocytes andmetamyelocytes) > 1% indicates that a LEFT SHIFT is Present. Performed By: #### L 500.2500, L100.0100 ####[facility] [address] [place], [address] Lymphocytes/100 WBC (Bld) 21.1 % Normal 19-[address] [facility] Comment on above: Performed By: #### L 500.2500, L100.0100 ####[facility] [address] [place], [address] MCH (RBC) [Entitic mass] 26.9 pg Low 27.0-32.[address] [facility] Comment on above: Performed By: #### L 500.2500, L100.0100 ####[facility] [address] [place], [address] MCHC (RBC) [Mass/Vol] 31.9 g/dL Low 32-36 [facility] Comment on above: Performed By: #### L 500.2500, L100.0100 ####[facility] [address] [place], [address] MCV (RBC) [Entitic vol] 84.2 fL Normal 81-99 [facility] Comment on above: Performed By: #### L 500.2500, L100.0100 ####[facility] [address] [place], [address] Monocytes/100 WBC (Bld) 7.2 % Normal 0-10 [facility] Comment on above: Performed By: #### L 500.2500, L100.0100 ####[facility] [address] [place], [address] Neutrophils/100 WBC (Bld) 67.9 % Normal 47-[address] [facility] Comment on above: Performed By: #### L 500.2500, L100.0100 ####[facility] [address] [place], [address] Nucleated RBC (Bld) [#/Vol] 0 10*3/uL Normal 0-[address] [facility] Comment on above: Performed By: #### L 500.2500, L100.0100 ####[facility] [address] [place], [address] Platelet mean volume (Bld) [Entitic vol] 10.1 fL Normal 6.2-12.[address] [facility] Comment on above: Performed By: #### L 500.2500, L100.0100 ####[facility] [address] [place], [address] Platelets (Bld) [#/Vol] 238 10*3/uL Normal 150-[address] [facility] Comment on above: Performed By: #### L 500.2500, L100.0100 ####[facility] [address] [place], [address] RBC (Bld) [#/Vol] 3.87 10*6/uL Low 4.2-5.4 [facility] Comment on above: Performed By: #### L 500.2500, L100.0100 ####[facility] [address] [place], [address] RDW SD 40.2 fl Normal 35.1-43.[address] [facility] Comment on above: Performed By: #### L 500.2500, L100.0100 ####[facility] [address] [place], [address] WBC (Bld) [#/Vol] 6.9 10*3/uL Normal 4.4-11.0 [facility] Comment on above: Performed By: #### L 500.2500, L100.0100 ####[facility] [address] [place], [address] Carbon dioxide, total [Moles /volume] in Central venous bloodOrdered By: Arnel Cano on 07-20-2025 CO2 [Moles/Vol] 26.4 mmol/L 21.0-32.[address] [facility] Chloride assayOrdered By: aMlly Cano on 07-20-2025 Chloride [Moles/Vol] 94 mmol/L Low 98-108 [facility] Discharge Instructionon 07-07 Discharge Instruction Normal [facility] Eosinophil percentageOrdered By: Arnel Cano on 07-20-2025 Eosinophils/100 WBC (Bld) 2.7 % 0-[address] [facility] Erythrocyte distribution wid th ratioOrdered By: Arnel Cano on 07-20-2025 Erythrocyte distribution width (RBC) [Ratio] 13.2 % 11.6-14.[address] [facility] Erythrocyte distribution wid th standard deviationOrdered By: Arnel Cano on 07-20-2025 Erythrocyte distribution width (RBC) [Ratio] 40.2 fl 35.1-43.[address] [facility] Glomerular filtration rate ( GFR) estimation/1.73 sq m using serum, plasma, or whole bOrdered By: Arnel Cano on 07-20-2025 GFR/1.73 sq M.predicted among non-blacks MDRD (S/P/Bld) [Vol rate/Area] 39 mL/min/{1.73_m2} Low >[address] [facility] Comment on above: mL/min/1.73m2 CKD-EP I Creatinine Equation (2020) Hematocrit Auto (Bld) [Volum e fraction]Ordered By: Arnel Cano on 07-20-2025 Hematocrit (Bld) [Volume fraction] 32.6 % Low 37-[address] [facility] Hemoglobin measurementOrdere d By: Arnel Cano on 07-20-2025 Hemoglobin (Bld) [Mass/Vol] 10.4 g/dL Low 12.0-15.[address] [facility] Immature granulocytes/100 WB C Auto (Bld)Ordered By: Arnel Cano on 07-20-2025 Immature granulocytes/100 WBC (Bld) 0.400 % 0.0-0.[address] [facility] Comment on above: IG% - Immature Granu locytes (promyelocytes, myelocytes and metamyelocytes) > 1% indicates that a LEFT SHIFT is Present. MCV (mean corpuscular volume ) determinationOrdered By: Arnel Cano on 07-20-2025 MCV (RBC) [Entitic vol] 84.2 fL 81-99 [facility] Mean corpuscular hemoglobin (MCH) determinationOrdered By: Arnel Cano 07-20-2025 MCH (RBC) [Entitic mass] 26.9 pg Low 27.0-32.[address] [facility] Mean corpuscular hemoglobin concentration (MCHC) determinationOrdered By: Arnel Cano on 07-20-2025 MCHC (RBC) [Mass/Vol] 31.9 g/dL Low 32-36 [facility] Mean platelet volume determi nationOrdered By: Arnel Cano on 07-20-2025 Platelet mean volume (Bld) [Entitic vol] 10.1 fL 6.2-12.[address] [facility] Monocyte percentageOrdered B y: Arnel Cano on 07-20-2025 Monocytes/100 WBC (Bld) 7.2 % 0-10 [facility] Neutrophil percentageOrdered By: Arnel Cano on 07-20-2025 Neutrophils/100 WBC (Bld) 67.9 % 47-[address] [facility] Nucleated red blood cell per centageOrdered By: Arnel Cano on 07-20-2025 Nucleated RBC/100 WBC (Bld) [Ratio] 0 % 0-[address] [facility] Platelet countOrdered By: Mally Cano on 07-20-2025 Platelets (Bld) [#/Vol] 238 10*3/uL 150-[address] [facility] Potassium measurement (mass/ volume)Ordered By: Arnel Cano on 07-20-2025 Potassium (Unsp spec) [Mass/Vol] 4.6 mmol/L 3.3-5.[address] [facility] RBC Auto (Bld) [#/Vol]Ordere d By: Arnel Cano on 07-20-2025 RBC (Bld) [#/Vol] 3.87 10*6/uL Low 4.2-5.4 [facility] Serum creatinine measurement (mass/volume)Ordered By: Arnel Cano on 07-20-2025 Creatinine [Mass/Vol] 1.47 mg/dL High 0.70-1.20 [facility] Serum glucose measurement (m ass/volume)Ordered By: Arnel Cano on 07-20-2025 Glucose [Mass/Vol] 97 mg/dL 70-99 [facility] Serum or plasma calcium marivel urement (mass/volume)Ordered By: Arnel Cano on 07-20-2025 Calcium [Mass/Vol] 9.0 mg/dL 7.6-11.0 [facility] Serum or plasma urea nitroge n measurement (mass/volume)Ordered By: Arnel Cano on 07-20-2025 Urea nitrogen [Mass/Vol] 12 mg/dL 4-[address] [facility] Sodium levelOrdered By: Osvaldo Cano on 07-20-2025 Sodium [Moles/Vol] 130 mmol/L Low 133-145 [facility] White blood cell (WBC) count Ordered By: Arnel Cano on 07-20-2025 WBC (Bld) [#/Vol] 6.9 10*3/uL 4.4-11.0 [facility] 12 Lead EKGon 07-19-2025 12 Lead EKG Normal [facility] Basic Metabolic Profile (BMP )on 07-19-2025 BUN/CRE 9.2 RATIO Low 10-[address] [facility] Comment on above: Performed By: #### L 501.2300, L500.2500 ####[facility] [address] [place], [address] Calcium [Mass/Vol] 8.6 mg/dL Normal 7.6-11.0 [facility] Comment on above: Performed By: #### L 501.2300, L500.2500 ####[facility] [address] [place], [address] Chloride [Moles/Vol] 97 mmol/L Low 98-108 [facility] Comment on above: Performed By: #### L 501.2300, L500.2500 ####[facility] [address] [place], [address] CO2 [Moles/Vol] 25.5 mmol/L Normal 21.0-32.[address] [facility] Comment on above: Performed By: #### L 501.2300, L500.2500 ####[facility] [address] [place], [address] Creatinine [Mass/Vol] 1.37 mg/dL High 0.70-1.20 [facility] Comment on above: Performed By: #### L 501.2300, L500.2500 ####[facility] [address] [place], [address] ECRCL 47.08 ml/min Low 50-[address] [facility] Comment on above: Performed By: #### L 501.2300, L500.2500 ####[facility] [address] [place], [address] GAP 9 Normal 5-[address] [facility] Comment on above: Performed By: #### L 501.2300, L500.2500 ####[facility] [address] [place], [address] GFR/1.73 sq M.predicted among non-blacks MDRD (S/P/Bld) [Vol rate/Area] 42 mL/min/{1.73_m2} Low >[address] [facility] Comment on above: Result Comment: mL/m in/1.73m2 CKD-EPI Creatinine Equation (2020) Performed By: #### L 501.2300, L500.2500 ####[facility] [address] [place], [address] Glucose [Mass/Vol] 128 mg/dL High 70-99 [facility] Comment on above: Performed By: #### L 501.2300, L500.2500 ####[facility] [address] [place], [address] Potassium [Moles/Vol] 4.6 mmol/L Normal 3.3-5.1 [facility] Comment on above: Performed By: #### L 501.2300, L500.2500 ####[facility] [address] [place], [address] Sodium [Moles/Vol] 131 mmol/L Low 133-145 [facility] Comment on above: Performed By: #### L 501.2300, L500.2500 ####[facility] [address] [place], [address] Urea nitrogen [Mass/Vol] 13 mg/dL Normal 4-[address] [facility] Comment on above: Performed By: #### L 501.2300, L500.2500 ####[facility] [address] [place], [address] CBC W/Diff, Automatedon - 3-2024 Absolute Lymph 1.25 X10 3/uL Normal 0.83-4.[address] [facility] Comment on above: Performed By: #### L 100.0100 ####[facility] [address] [place], [address] Absolute Neut 3.2 X10 3/uL Normal 2.0-7.[address] [facility] Comment on above: Performed By: #### L 100.0100 ####[facility] [address] [place], [address] Basophils/100 WBC (Bld) 1.0 % Normal 0-1 [facility] Comment on above: Performed By: #### L 100.0100 ####[facility] [address] [place], [address] Eosinophils/100 WBC (Bld) 2.6 % Normal 0-[address] [facility] Comment on above: Performed By: #### L 100.0100 ####[facility] [address] [place], [address] Erythrocyte distribution width (RBC) [Ratio] 12.8 % Normal 11.6-14.[address] [facility] Comment on above: Performed By: #### L 100.0100 ####[facility] [address] [place], [address] Hematocrit (Bld) [Volume fraction] 32.2 % Low 37-[address] [facility] Comment on above: Performed By: #### L 100.0100 ####[facility] [address] [place], [address] Hemoglobin (Bld) [Mass/Vol] 10.1 g/dL Low 12.0-15.[address] [facility] Comment on above: Performed By: #### L 100.0100 ####[facility] [address] [place], [address] IG% 0.200 Normal 0.0-0.[address] [facility] Comment on above: Result Comment: IG% - Immature Granulocytes (promyelocytes, myelocytes andmetamyelocytes) > 1% indicates that a LEFT SHIFT is Present. Performed By: #### L 100.0100 ####[facility] [address] [place], [address] Lymphocytes/100 WBC (Bld) 24.7 % Normal 19-[address] [facility] Comment on above: Performed By: #### L 100.0100 ####[facility] [address] [place], [address] MCH (RBC) [Entitic mass] 26.7 pg Low 27.0-32.[address] [facility] Comment on above: Performed By: #### L 100.0100 ####[facility] [address] [place], [address] MCHC (RBC) [Mass/Vol] 31.4 g/dL Low 32-36 [facility] Comment on above: Performed By: #### L 100.0100 ####[facility] [address] [place], [address] MCV (RBC) [Entitic vol] 85.2 fL Normal 81-99 [facility] Comment on above: Performed By: #### L 100.0100 ####[facility] [address] [place], [address] Monocytes/100 WBC (Bld) 8.3 % Normal 0-10 [facility] Comment on above: Performed By: #### L 100.0100 ####[facility] [address] [place], [address] Neutrophils/100 WBC (Bld) 63.2 % Normal 47-[address] [facility] Comment on above: Performed By: #### L 100.0100 ####[facility] [address] [place], [address] Nucleated RBC (Bld) [#/Vol] 0 10*3/uL Normal 0-[address] [facility] Comment on above: Performed By: #### L 100.0100 ####[facility] [address] [place], [address] Platelet mean volume (Bld) [Entitic vol] 10.0 fL Normal 6.2-12.[address] [facility] Comment on above: Performed By: #### L 100.0100 ####[facility] [address] [place], [address] Platelets (Bld) [#/Vol] 191 10*3/uL Normal 150-[address] [facility] Comment on above: Performed By: #### L 100.0100 ####[facility] [address] [place], [address] RBC (Bld) [#/Vol] 3.78 10*6/uL Low 4.2-5.4 [facility] Comment on above: Performed By: #### L 100.0100 ####[facility] [address] [place], [address] RDW SD 39.4 fl Normal 35.1-43.[address] [facility] Comment on above: Performed By: #### L 100.0100 ####[facility] [address] [place], [address] WBC (Bld) [#/Vol] 5.1 10*3/uL Normal 4.4-11.0 [facility] Comment on above: Performed By: #### L 100.0100 ####[facility] [address] [place], [address] CPK Total, Creatine Kinaseon 07-19-2025 CPK TOTAL 128 U/L Normal - [facility] Comment on above: Performed By: #### L 501.3620 ####[facility] [address] [place], [address] Phosphoruson 07-19-2025 Phosphate [Mass/Vol] 3.6 mg/dL Normal 2.7-4.5 [facility] Comment on above: Performed By: #### L 501.2300, L500.2500 ####[facility] [address] [place], [address] Serum or plasma creatine kin ase activityOrdered By: Arnel Cano on 07-19-2025 CK [Catalytic activity/Vol] 128 U/L - [facility] Basic Metabolic Profile (BMP )on 07-18-2025 BUN/CRE 11.7 RATIO Normal 10-[address] [facility] Comment on above: Performed By: #### L 500.2500, L501.5200 ####[facility] [address] [place], [address] Calcium [Mass/Vol] 8.8 mg/dL Normal 7.6-11.0 [facility] Comment on above: Performed By: #### L 500.2500, L501.5200 ####[facility] [address] [place], [address] Chloride [Moles/Vol] 94 mmol/L Low 98-108 [facility] Comment on above: Performed By: #### L 500.2500, L501.5200 ####[facility] [address] [place], [address] CO2 [Moles/Vol] 27.6 mmol/L Normal 21.0-32.[address] [facility] Comment on above: Performed By: #### L 500.2500, L501.5200 ####[facility] [address] [place], [address] Creatinine [Mass/Vol] 1.70 mg/dL High 0.70-1.20 [facility] Comment on above: Performed By: #### L 500.2500, L501.5200 ####[facility] [address] [place], [address] ECRCL 37.57 ml/min Low 50-[address] [facility] Comment on above: Performed By: #### L 500.2500, L501.5200 ####[facility] [address] [place], [address] GAP 9 Normal 5-[address] [facility] Comment on above: Performed By: #### L 500.2500, L501.5200 ####[facility] [address] [place], [address] GFR/1.73 sq M.predicted among non-blacks MDRD (S/P/Bld) [Vol rate/Area] 33 mL/min/{1.73_m2} Low >[address] [facility] Comment on above: Result Comment: mL/m in/1.73m2 CKD-EPI Creatinine Equation (2020) Performed By: #### L 500.2500, L501.5200 ####[facility] [address] [place], [address] Glucose [Mass/Vol] 137 mg/dL High 70-99 [facility] Comment on above: Performed By: #### L 500.2500, L501.5200 ####[facility] [address] [place], [address] Potassium [Moles/Vol] 4.8 mmol/L Normal 3.3-5.1 [facility] Comment on above: Performed By: #### L 500.2500, L501.5200 ####[facility] [address] [place], [address] Sodium [Moles/Vol] 131 mmol/L Low 133-145 [facility] Comment on above: Performed By: #### L 500.2500, L501.5200 ####[facility] [address] [place], [address] Urea nitrogen [Mass/Vol] 20 mg/dL High 4-[address] [facility] Comment on above: Performed By: #### L 500.2500, L501.5200 ####[facility] [address] [place], [address] Bilirubin Test strip Ql (U)O rdered By: Elana Granda on 07-18-2025 Bilirubin Ql (U) Negative Negative [facility] Bilirubin, totalOrdered By: Elana Granda on 07-18-2025 Bilirubin [Mass/Vol] mg/dL 0.00-1.30 [facility] CBC W/Diff, Automatedon 07-07 Absolute Lymph 1.55 X10 3/uL Normal 0.83-4.[address] [facility] Comment on above: Performed By: #### L 500.4050, L501.2300, L501.9520, L100.0100 ####[facility] [address] [place], [address] Absolute Neut 4.1 X10 3/uL Normal 2.0-7.[address] [facility] Comment on above: Performed By: #### L 500.4050, L501.2300, L501.9520, L100.0100 ####[facility] [address] [place], [address] Basophils/100 WBC (Bld) 0.8 % Normal 0-1 [facility] Comment on above: Performed By: #### L 500.4050, L501.2300, L501.9520, L100.0100 ####[facility] [address] [place], [address] Eosinophils/100 WBC (Bld) 3.0 % Normal 0-[address] [facility] Comment on above: Performed By: #### L 500.4050, L501.2300, L501.9520, L100.0100 ####[facility] [address] [place], [address] Erythrocyte distribution width (RBC) [Ratio] 12.9 % Normal 11.6-14.[address] [facility] Comment on above: Performed By: #### L 500.4050, L501.2300, L501.9520, L100.0100 ####[facility] [address] [place], [address] Hematocrit (Bld) [Volume fraction] 31.0 % Low 37-[address] [facility] Comment on above: Performed By: #### L 500.4050, L501.2300, L501.9520, L100.0100 ####[facility] [address] [place], [address] Hemoglobin (Bld) [Mass/Vol] 9.7 g/dL Low 12.0-15.[address] [facility] Comment on above: Performed By: #### L 500.4050, L501.2300, L501.9520, L100.0100 ####[facility] [address] [place], [address] IG% 0.200 Normal 0.0-0.[address] [facility] Comment on above: Result Comment: IG% - Immature Granulocytes (promyelocytes, myelocytes andmetamyelocytes) > 1% indicates that a LEFT SHIFT is Present. Performed By: #### L 500.4050, L501.2300, L501.9520, L100.0100 ####[facility] [address] [place], [address] Lymphocytes/100 WBC (Bld) 24.1 % Normal 19-[address] [facility] Comment on above: Performed By: #### L 500.4050, L501.2300, L501.9520, L100.0100 ####[facility] [address] [place], [address] MCH (RBC) [Entitic mass] 26.7 pg Low 27.0-32.[address] [facility] Comment on above: Performed By: #### L 500.4050, L501.2300, L501.9520, L100.0100 ####[facility] [address] [place], [address] MCHC (RBC) [Mass/Vol] 31.3 g/dL Low 32-36 [facility] Comment on above: Performed By: #### L 500.4050, L501.2300, L501.9520, L100.0100 ####[facility] [address] [place], [address] MCV (RBC) [Entitic vol] 85.4 fL Normal 81-99 [facility] Comment on above: Performed By: #### L 500.4050, L501.2300, L501.9520, L100.0100 ####[facility] [address] [place], [address] Monocytes/100 WBC (Bld) 8.2 % Normal 0-10 [facility] Comment on above: Performed By: #### L 500.4050, L501.2300, L501.9520, L100.0100 ####[facility] [address] [place], [address] Neutrophils/100 WBC (Bld) 63.7 % Normal 47-[address] [facility] Comment on above: Performed By: #### L 500.4050, L501.2300, L501.9520, L100.0100 ####[facility] [address] [place], [address] Nucleated RBC (Bld) [#/Vol] 0 10*3/uL Normal 0-[address] [facility] Comment on above: Performed By: #### L 500.4050, L501.2300, L501.9520, L100.0100 ####[facility] [address] [place], [address] Platelet mean volume (Bld) [Entitic vol] 9.8 fL Normal 6.2-12.[address] [facility] Comment on above: Performed By: #### L 500.4050, L501.2300, L501.9520, L100.0100 ####[facility] [address] [place], [address] Platelets (Bld) [#/Vol] 210 10*3/uL Normal 150-[address] [facility] Comment on above: Performed By: #### L 500.4050, L501.2300, L501.9520, L100.0100 ####[facility] [address] [place], [address] RBC (Bld) [#/Vol] 3.63 10*6/uL Low 4.2-5.4 [facility] Comment on above: Performed By: #### L 500.4050, L501.2300, L501.9520, L100.0100 ####[facility] [address] [place], [address] RDW SD 39.8 fl Normal 35.1-43.[address] [facility] Comment on above: Performed By: #### L 500.4050, L501.2300, L501.9520, L100.0100 ####[facility] [address] [place], [address] WBC (Bld) [#/Vol] 6.4 10*3/uL Normal 4.4-11.0 [facility] Comment on above: Performed By: #### L 500.4050, L501.2300, L501.9520, L100.0100 ####[facility] [address] [place], [address] Comprehensive Metabolic Prof ilon 07-18-2025 Albumin [Mass/Vol] 3.5 g/dL Normal 3.4-4.8 [facility] Comment on above: Performed By: #### L 500.4050, L501.2300, L501.9520, L100.0100 ####[facility] [address] [place], [address] Albumin/Globulin [Mass ratio] 1.2 {ratio} Normal 0.9-2.[address] [facility] Comment on above: Performed By: #### L 500.4050, L501.2300, L501.9520, L100.0100 ####[facility] [address] [place], [address] ALK PHOS 81 U/L Normal 35-[address] [facility] Comment on above: Performed By: #### L 500.4050, L501.2300, L501.9520, L100.0100 ####[facility] [address] [place], [address] ALT [Catalytic activity/Vol] 13 U/L Normal <=[address] [facility] Comment on above: Performed By: #### L 500.4050, L501.2300, L501.9520, L100.0100 ####[facility] [address] [place], [address] AST [Catalytic activity/Vol] 27 U/L Normal <=[address] [facility] Comment on above: Performed By: #### L 500.4050, L501.2300, L501.9520, L100.0100 ####[facility] [address] [place], [address] BUN/CRE 11.8 RATIO Normal 10-[address] [facility] Comment on above: Performed By: #### L 500.4050, L501.2300, L501.9520, L100.0100 ####[facility] [address] [place], [address] Calcium [Mass/Vol] 8.6 mg/dL Normal 7.6-11.0 [facility] Comment on above: Performed By: #### L 500.4050, L501.2300, L501.9520, L100.0100 ####[facility] [address] [place], [address] Chloride [Moles/Vol] 94 mmol/L Low 98-108 [facility] Comment on above: Performed By: #### L 500.4050, L501.2300, L501.9520, L100.0100 ####[facility] [address] [place], [address] CO2 [Moles/Vol] 25.8 mmol/L Normal 21.0-32.[address] [facility] Comment on above: Performed By: #### L 500.4050, L501.2300, L501.9520, L100.0100 ####[facility] [address] [place], [address] Creatinine [Mass/Vol] 1.57 mg/dL High 0.70-1.20 [facility] Comment on above: Performed By: #### L 500.4050, L501.2300, L501.9520, L100.0100 ####[facility] [address] [place], [address] ECRCL 40.82 ml/min Low 50-[address] [facility] Comment on above: Performed By: #### L 500.4050, L501.2300, L501.9520, L100.0100 ####[facility] [address] [place], [address] GAP 10 Normal 5-[address] [facility] Comment on above: Performed By: #### L 500.4050, L501.2300, L501.9520, L100.0100 ####[facility] [address] [place], [address] GFR/1.73 sq M.predicted among non-blacks MDRD (S/P/Bld) [Vol rate/Area] 36 mL/min/{1.73_m2} Low >[address] [facility] Comment on above: Result Comment: mL/m in/1.73m2 CKD-EPI Creatinine Equation (2020) Performed By: #### L 500.4050, L501.2300, L501.9520, L100.0100 ####[facility] [address] [place], [address] Globulin (S) [Mass/Vol] 2.8 g/dL Normal 2.2-4.2 [facility] Comment on above: Performed By: #### L 500.4050, L501.2300, L501.9520, L100.0100 ####[facility] [address] [place], [address] Glucose [Mass/Vol] 138 mg/dL High 70-99 [facility] Comment on above: Performed By: #### L 500.4050, L501.2300, L501.9520, L100.0100 ####[facility] [address] [place], [address] Potassium [Moles/Vol] 4.4 mmol/L Normal 3.3-5.1 [facility] Comment on above: Performed By: #### L 500.4050, L501.2300, L501.9520, L100.0100 ####[facility] [address] [place], [address] Sodium [Moles/Vol] 129 mmol/L Low 133-145 [facility] Comment on above: Performed By: #### L 500.4050, L501.2300, L501.9520, L100.0100 ####[facility] [address] [place], [address] T BILI < 0.15 Normal 0.00-1.[address] [facility] Comment on above: Performed By: #### L 500.4050, L501.2300, L501.9520, L100.0100 ####[facility] [address] [place], [address] T PROT 6.3 g/dL Normal 5.9-8.[address] [facility] Comment on above: Performed By: #### L 500.4050, L501.2300, L501.9520, L100.0100 ####[facility] [address] [place], [address] Urea nitrogen [Mass/Vol] 19 mg/dL Normal 4-[address] [facility] Comment on above: Performed By: #### L 500.4050, L501.2300, L501.9520, L100.0100 ####[facility] [address] [place], [address] Free T3on 07-18-2025 Free T3 [Mass/Vol] 2.6 pg/mL Normal 2.18-3.98 [facility] Comment on above: Performed By: #### L 501.11846 ####[facility] [address] [place], [address] Free M2Bjnrfry By: Arnel Cano on 07-18-2025 Free T3 [Mass/Vol] 2.6 pg/mL 2.18-3.98 [facility] Ketones Test strip Ql (U)Ord ered By: Elana Granda on 07-18-2025 Ketones Ql (U) Negative Negative [facility] Laboratory - Chemistry and C hemistry - challengeOrdered By: Elana Granda on 07-18-2025 AST [Catalytic activity/Vol] 27 U/L <[address] [facility] Magnesiumon 07-18-2025 Magnesium [Mass/Vol] 2.1 mg/dL Normal 1.5-2.2 [facility] Comment on above: Performed By: #### L 500.2500, L501.5200 ####[facility] [address] [place], [place], [address] Magnesium measurement (mass/ volume)Ordered By: Elana Granda on 07-18-2025 Magnesium (Unsp spec) [Mass/Vol] 2.1 mg/dL 1.5-2.[address] [facility] Microscopic analysis of urin e for red blood cells (RBC)Ordered By: Elana Granda on 07-18-2025 Microscopic analysis of urine for red blood cells (RBC) 0-5 SEEN /hpf 0-[address] [facility] Mucus LM Ql (Urine sed)Order ed By: Elana Granda on 07-18-2025 Mucus Ql (Urine sed) 0 SEEN /hpf [facility] Nitrite Test strip Ql (U)Ord ered By: Elana Granda on 07-18-2025 Nitrite Ql (U) Negative Negative [facility] Phosphoruson 07-18-2025 Phosphate [Mass/Vol] 3.6 mg/dL Normal 2.7-4.5 [facility] Comment on above: Performed By: #### L 500.4050, L501.2300, L501.9520, L100.0100 ####[facility] [address] [place], [address] Protein Test strip Ql (U)Ord ered By: Elana Granda on 07-18-2025 Protein Ql (U) 30 mg/dl High Negative [facility] Serum globulin measurementOr dered By: Elana Granda on 07-18-2025 Globulin (S) [Mass/Vol] 2.8 g/dL 2.2-4.2 [facility] Serum or plasma alanine hester otransferase (ALT) measurementOrdered By: Elana Granda on 07-18-2025 ALT [Catalytic activity/Vol] 13 U/L <[address] [facility] Serum or plasma albumin marivel urement (mass/volume)Ordered By: Elana Granda on 07-18-2025 Albumin [Mass/Vol] 3.5 g/dL 3.4-4.8 [facility] Serum or plasma albumin/glob ulin mass ratioOrdered By: Elana Granda on 07-18-2025 Albumin/Globulin [Mass ratio] 1.2 {ratio} 0.9-2.[address] [facility] Serum or plasma alkaline wai sphatase measurementOrdered By: Elana Granda on 07-18-2025 ALP [Catalytic activity/Vol] 81 U/L 35-[address] [facility] Squamous epithelial cells de tection in urine sediment by light microscopyOrdered By: Elana Granda on 07-18-2025 Epithelial cells.squamous LM Ql (Urine sed) 0-5 SEEN /hpf 5-[address] [facility] TSH DL <= 0.005 mIU/L QnOrde red By: Elana Granda on 07-18-2025 TSH Qn 0.077 uIU/mL Low 0.300-4.[address] [facility] Thyroid Stim Hormone (TSH)on 07-18-2025 TSH 0.077 uIU/mL Low 0.300-4.[address] [facility] Comment on above: Performed By: #### L 500.4050, L501.2300, L501.9520, L100.0100 ####[facility] [address] [place], [address] Total proteinOrdered By: Arpit Granda on 07-18-2025 Protein [Mass/Vol] 6.3 g/dL 5.9-8.4 [facility] Urinalysis, Completeon 07-18 EPI,SQUAMOUS 0-5 SEEN Normal 5-[address] [facility] Comment on above: Order Comment: CLEAN CATCH Performed By: #### L 400.0001 ####[facility] [address] [place], [address] RBC 0-5 SEEN Normal 0-[address] [facility] Comment on above: Order Comment: CLEAN CATCH Performed By: #### L 400.0001 ####[facility] [address] [place], [address] WBC 0-5 SEEN Normal 0-[address] [facility] Comment on above: Order Comment: CLEAN CATCH Performed By: #### L 400.0001 ####[facility] [address] [place], [address] BACTERIA 0 SEEN Normal None Seen [facility] Comment on above: Order Comment: CLEAN CATCH Performed By: #### L 400.0001 ####[facility] [address] [place], [address] Mucus Ql (Urine sed) 0 SEEN Normal [facility] Comment on above: Order Comment: CLEAN CATCH Performed By: #### L 400.0001 ####[facility] [address] [place], [address] Urine clarityOrdered By: Arpit Granda on 07-18-2025 Clarity (U) Clear Clear [facility] Urine color determinationOrd ered By: Elana Granda on 07-18-2025 Color (U) Straw Yellow [facility] Urine glucose detectionOrder ed By: Elana Granda on 07-18-2025 Glucose Ql (U) Normal mg/dl Normal [facility] Urine leukocyte esterase det ection by dipstickOrdered By: Elana Granda on 07-18-2025 Leukocyte esterase Test strip Ql (U) Negative Negative [facility] Urine pHOrdered By: Elana kam on 07-18-2025 pH (U) 7.0 [pH] 5.0 - 8.[address] [facility] Urine sediment bacteria coun t by microscopy (number/high power field)Ordered By: Elana Granda on 07-18-2025 Bacteria LM.HPF (Urine sed) [#/Area] 0 /[HPF] None Seen [facility] Urine specific gravity measu rementOrdered By: Elana Granda on 07-18-2025 Specific gravity (U) [Rel density] 1.010 1.002-1.[address] [facility] Urine urobilinogen measureme ntOrdered By: Elana Jesus Alberto on 07-18-2025 Urobilinogen Ql (U) Normal mg/dl Normal [facility] White blood cell countOrdere d By: Elana Granda on 07-18-2025 White blood cell count 0-5 SEEN /hpf 0-[address] [facility] Absolute lymphocyte countOrd ered By: Ramakrishna Maher on 07-17-2025 Lymphocytes Auto (Unsp spec) [#/Vol] 1.39 10*3/uL 0.83-4.[address] [facility] Absolute neutrophil countOrd ered By: Ramakrishnaglo Maher on 07-17-2025 Neutrophils (Bld) [#/Vol] 5.6 10*3/uL 2.0-7.[address] [facility] Anion gap in Serum or Plasma Ordered By: Ramakrishnaglo Maher on 07-17-2025 Anion gap [Moles/Vol] 9 mmol/L 5-15 [facility] Automated lymphocyte count a s percentage of total leukocytesOrdered By: Ramakrishnaglo Maher on 07-17-2025 Lymphocytes/100 WBC Auto (Unsp spec) 18.0 % Low 19-[address] [facility] BUN/creatinine ratioOrdered By: Ramakrishnaglo Maher on 07-17-2025 Urea nitrogen/Creatinine [Mass ratio] 11.9 mg/mg 10-[address] [facility] Basophil percentageOrdered B y: Ramakrishna Maher on 07-17-2025 Basophils/100 WBC (Bld) 1.0 % 0-1 [facility] Bilirubin, totalOrdered By: Ramakrishnaglo Maher on 07-17-2025 Bilirubin [Mass/Vol] 0.20 mg/dL 0.00-1.30 [facility] CBC W/Diff, Automatedon 07-07 Absolute Lymph 1.39 X10 3/uL Normal 0.83-4.[address] [facility] Comment on above: Performed By: #### L 503.6005, L500.4050, L100.0100 ####[facility] [address] [place], [address] Absolute Neut 5.6 X10 3/uL Normal 2.0-7.[address] [facility] Comment on above: Performed By: #### L 503.6005, L500.4050, L100.0100 ####[facility] [address] [place], [address] Basophils/100 WBC (Bld) 1.0 % Normal 0-1 [facility] Comment on above: Performed By: #### L 503.6005, L500.4050, L100.0100 ####[facility] [address] [place], [address] Eosinophils/100 WBC (Bld) 1.6 % Normal 0-[address] [facility] Comment on above: Performed By: #### L 503.6005, L500.4050, L100.0100 ####[facility] [address] [place], [address] Erythrocyte distribution width (RBC) [Ratio] 13.2 % Normal 11.6-14.[address] [facility] Comment on above: Performed By: #### L 503.6005, L500.4050, L100.0100 ####[facility] [address] [place], [address] Hematocrit (Bld) [Volume fraction] 35.4 % Low 37-[address] [facility] Comment on above: Performed By: #### L 503.6005, L500.4050, L100.0100 ####[facility] [address] [place], [address] Hemoglobin (Bld) [Mass/Vol] 11.0 g/dL Low 12.0-15.[address] [facility] Comment on above: Performed By: #### L 503.6005, L500.4050, L100.0100 ####[facility] [address] [place], [address] IG% 0.300 Normal 0.0-0.[address] [facility] Comment on above: Result Comment: IG% - Immature Granulocytes (promyelocytes, myelocytes andmetamyelocytes) > 1% indicates that a LEFT SHIFT is Present. Performed By: #### L 503.6005, L500.4050, L100.0100 ####[facility] [address] [place], [address] Lymphocytes/100 WBC (Bld) 18.0 % Low 19-[address] [facility] Comment on above: Performed By: #### L 503.6005, L500.4050, L100.0100 ####[facility] [address] [place], [address] MCH (RBC) [Entitic mass] 26.7 pg Low 27.0-32.[address] [facility] Comment on above: Performed By: #### L 503.6005, L500.4050, L100.0100 ####[facility] [address] [place], [address] MCHC (RBC) [Mass/Vol] 31.1 g/dL Low 32-36 [facility] Comment on above: Performed By: #### L 503.6005, L500.4050, L100.0100 ####[facility] [address] [place], [address] MCV (RBC) [Entitic vol] 85.9 fL Normal 81-99 [facility] Comment on above: Performed By: #### L 503.6005, L500.4050, L100.0100 ####[facility] [address] [place], [address] Monocytes/100 WBC (Bld) 6.6 % Normal 0-10 [facility] Comment on above: Performed By: #### L 503.6005, L500.4050, L100.0100 ####[facility] [address] [place], [address] Neutrophils/100 WBC (Bld) 72.5 % High 47-[address] [facility] Comment on above: Performed By: #### L 503.6005, L500.4050, L100.0100 ####[facility] [address] [place], [address] Nucleated RBC (Bld) [#/Vol] 0 10*3/uL Normal 0-[address] [facility] Comment on above: Performed By: #### L 503.6005, L500.4050, L100.0100 ####[facility] [address] [place], [address] Platelet mean volume (Bld) [Entitic vol] 10.1 fL Normal 6.2-12.[address] [facility] Comment on above: Performed By: #### L 503.6005, L500.4050, L100.0100 ####[facility] [address] [place], [address] Platelets (Bld) [#/Vol] 254 10*3/uL Normal 150-[address] [facility] Comment on above: Performed By: #### L 503.6005, L500.4050, L100.0100 ####[facility] [address] [place], [address] RBC (Bld) [#/Vol] 4.12 10*6/uL Low 4.2-5.4 [facility] Comment on above: Performed By: #### L 503.6005, L500.4050, L100.0100 ####[facility] [address] [place], [address] RDW SD 41.0 fl Normal 35.1-43.[address] [facility] Comment on above: Performed By: #### L 503.6005, L500.4050, L100.0100 ####[facility] [address] [place], [address] WBC (Bld) [#/Vol] 7.7 10*3/uL Normal 4.4-11.0 [facility] Comment on above: Performed By: #### L 503.6005, L500.4050, L100.0100 ####[facility] [address] [place], [address] CPK Total, Creatine Kinaseon 07-17-2025 CPK TOTAL 401 U/L High 24-[address] [facility] Comment on above: Performed By: #### L 501.3620 ####[facility] [address] [place], [address] Carbon dioxide, total [Moles /volume] in Central venous bloodOrdered By: Ramakrishna Maher on 07-17-2025 CO2 [Moles/Vol] 26.8 mmol/L 21.0-32.[address] [facility] Chloride assayOrdered By: Ug o Maher on 07-17-2025 Chloride [Moles/Vol] 94 mmol/L Low 98-108 [facility] Comprehensive Metabolic Prof ilon 07-17-2025 Albumin [Mass/Vol] 3.9 g/dL Normal 3.4-4.8 [facility] Comment on above: Performed By: #### L 503.6005, L500.4050, L100.0100 ####[facility] [address] [place], [address] Albumin/Globulin [Mass ratio] 1.2 {ratio} Normal 0.9-2.[address] [facility] Comment on above: Performed By: #### L 503.6005, L500.4050, L100.0100 ####[facility] [address] [place], [address] ALK PHOS 89 U/L Normal 35-[address] [facility] Comment on above: Performed By: #### L 503.6005, L500.4050, L100.0100 ####[facility] [address] [place], [address] ALT [Catalytic activity/Vol] 16 U/L Normal <=[address] [facility] Comment on above: Performed By: #### L 503.6005, L500.4050, L100.0100 ####[facility] [address] [place], [address] AST [Catalytic activity/Vol] 35 U/L High <=[address] [facility] Comment on above: Result Comment: Hemo lysis present, Results??could be affected.?? Performed By: #### L 503.6005, L500.4050, L100.0100 ####[facility] [address] [place], [address] Bilirubin [Mass/Vol] 0.20 mg/dL Normal 0.00-1.30 [facility] Comment on above: Performed By: #### L 503.6005, L500.4050, L100.0100 ####[facility] [address] [place], [address] BUN/CRE 11.9 RATIO Normal 10-[address] [facility] Comment on above: Performed By: #### L 503.6005, L500.4050, L100.0100 ####[facility] [address] [place], [place], [id number] Calcium [Mass/Vol] 8.7 mg/dL Normal 7.6-11.0 [facility] Comment on above: Performed By: #### L 503.6005, L500.4050, L100.0100 ####[facility] [address] [place], [address] Chloride [Moles/Vol] 94 mmol/L Low 98-108 [facility] Comment on above: Performed By: #### L 503.6005, L500.4050, L100.0100 ####[facility] [address] [place], [address] CO2 [Moles/Vol] 26.8 mmol/L Normal 21.0-32.[address] [facility] Comment on above: Performed By: #### L 503.6005, L500.4050, L100.0100 ####[facility] [address] [place], [address] Creatinine [Mass/Vol] 1.73 mg/dL High 0.70-1.20 [facility] Comment on above: Performed By: #### L 503.6005, L500.4050, L100.0100 ####[facility] [address] [place], [address] ECRCL 37.32 ml/min Low 50-[address] [facility] Comment on above: Performed By: #### L 503.6005, L500.4050, L100.0100 ####[facility] [address] [place], [address] GAP 9 Normal 5-[address] [facility] Comment on above: Performed By: #### L 503.6005, L500.4050, L100.0100 ####[facility] [address] [place], [address] GFR/1.73 sq M.predicted among non-blacks MDRD (S/P/Bld) [Vol rate/Area] 32 mL/min/{1.73_m2} Low >[address] [facility] Comment on above: Result Comment: mL/m in/1.73m2 CKD-EPI Creatinine Equation (2020) Performed By: #### L 503.6005, L500.4050, L100.0100 ####[facility] [address] [place], [address] Globulin (S) [Mass/Vol] 3.2 g/dL Normal 2.2-4.2 [facility] Comment on above: Performed By: #### L 503.6005, L500.4050, L100.0100 ####[facility] [address] [place], [address] Glucose [Mass/Vol] 88 mg/dL Normal 70-99 [facility] Comment on above: Performed By: #### L 503.6005, L500.4050, L100.0100 ####[facility] [address] [place], [address] Potassium [Moles/Vol] 5.9 mmol/L High 3.3-5.1 [facility] Comment on above: Result Comment: Hemo lysis present, Results??could be affected.?? Performed By: #### L 503.6005, L500.4050, L100.0100 ####[facility] [address] [place], [address] Sodium [Moles/Vol] 130 mmol/L Low 133-145 [facility] Comment on above: Performed By: #### L 503.6005, L500.4050, L100.0100 ####[facility] [address] [place], [address] T PROT 7.1 g/dL Normal 5.9-8.[address] [facility] Comment on above: Performed By: #### L 503.6005, L500.4050, L100.0100 ####[facility] [address] [place], [address] Urea nitrogen [Mass/Vol] 21 mg/dL High 4-[address] [facility] Comment on above: Performed By: #### L 503.6005, L500.4050, L100.0100 ####[facility] [address] [place], [address] Emergency Department Summary on 07-17-2025 Emergency Department Summary Normal [facility] Eosinophil percentageOrdered By: Ramakrishna Maher on 07-17-2025 Eosinophils/100 WBC (Bld) 1.6 % 0-[address] [facility] Erythrocyte distribution wid th ratioOrdered By: Ramakrishnaglo Maher on 07-17-2025 Erythrocyte distribution width (RBC) [Ratio] 13.2 % 11.6-14.[address] [facility] Erythrocyte distribution wid th standard deviationOrdered By: Ramakrishnaglo Maher on 07-17-2025 Erythrocyte distribution width (RBC) [Ratio] 41.0 fl 35.1-43.[address] [facility] Glomerular filtration rate ( GFR) estimation/1.73 sq m using serum, plasma, or whole bOrdered By: Ramakrishnaglo Maher on 07-17-2025 GFR/1.73 sq M.predicted among non-blacks MDRD (S/P/Bld) [Vol rate/Area] 32 mL/min/{1.73_m2} Low >[address] [facility] Comment on above: mL/min/1.73m2 CKD-EP I Creatinine Equation (2020) H AND P Exam - Hospitaliston 07-17-2025 H&P Exam - Hospitalist Normal [facility] Hematocrit Auto (Bld) [Volum e fraction]Ordered By: Ramakrishnaglo Maher on 07-17-2025 Hematocrit (Bld) [Volume fraction] 35.4 % Low 37-[address] [facility] Hemoglobin measurementOrdere d By: Ramakrishnaglo Maher on 07-17-2025 Hemoglobin (Bld) [Mass/Vol] 11.0 g/dL Low 12.0-15.[address] [facility] Immature granulocytes/100 WB C Auto (Bld)Ordered By: Ramakrishnaglo Maher on 07-17-2025 Immature granulocytes/100 WBC (Bld) 0.300 % 0.0-0.[address] [facility] Comment on above: IG% - Immature Granu locytes (promyelocytes, myelocytes and metamyelocytes) > 1% indicates that a LEFT SHIFT is Present. Laboratory - Chemistry and C hemistry - challengeOrdered By: Ramakrishnaglo Maher on 07-17-2025 AST [Catalytic activity/Vol] 35 U/L High <[address] [facility] Comment on above: Hemolysis present, R esults could be affected. Lactic Acidon 07-17-2025 Lactate [Moles/Vol] mmol/L Normal 0.0-2.0 [facility] Comment on above: Order Comment: Y Performed By: #### L 503.6005, L500.4050, L100.0100 ####[facility] [address] [place], [address] Lactic acid measurementOrder ed By: Ramakrishnaglo Maher on 07-17-2025 Lactate [Moles/Vol] mmol/L 0.0-2.0 [facility] MCV (mean corpuscular volume ) determinationOrdered By: Ramakrishna Maher on 07-17-2025 MCV (RBC) [Entitic vol] 85.9 fL 81-99 [facility] Mean corpuscular hemoglobin (MCH) determinationOrdered By: [facility] on 07-17-2025 MCH (RBC) [Entitic mass] 26.7 pg Low 27.0-32.[address] [facility] Mean corpuscular hemoglobin concentration (MCHC) determinationOrdered By: [facility] on 07-17-2025 MCHC (RBC) [Mass/Vol] 31.1 g/dL Low 32-36 [facility] Mean platelet volume determi nationOrdered By: [facility] on 07-[facility] Platelet mean volume (Bld) [Entitic vol] 10.1 fL 6.2-12.[address] [facility] Monocyte percentageOrdered B y: Ramakrishnaglo Maher on 07-17-2025 Monocytes/100 WBC (Bld) 6.6 % 0-10 [facility] Neutrophil percentageOrdered By: [facility] on 07-17-2025 Neutrophils/100 WBC (Bld) 72.5 % High 47-[address] [facility] Nucleated red blood cell per centageOrdered By: [facility] on 07-17-2025 Nucleated RBC/100 WBC (Bld) [Ratio] 0 % 0-[address] [facility] Platelet countOrdered By: [facility] on 07-17-2025 Platelets (Bld) [#/Vol] 254 10*3/uL 150-[address] [facility] Potassium measurement (mass/ volume)Ordered By: Ramakrishna [facility] on 07-17-2025 Potassium (Unsp spec) [Mass/Vol] 5.9 mmol/L High 3.3-5.[address] [facility] Comment on above: Hemolysis present, R esults could be affected. RBC Auto (Bld) [#/Vol]Ordere d By: Ramakrishna Maher on 07-17-2025 RBC (Bld) [#/Vol] 4.12 10*6/uL Low 4.2-5.4 [facility] Serum creatinine measurement (mass/volume)Ordered By: Ramakrishna Maher on 07-17-2025 Creatinine [Mass/Vol] 1.73 mg/dL High 0.70-1.20 [facility] Serum globulin measurementOr dered By: Ramakrishna Maher on 07-17-2025 Globulin (S) [Mass/Vol] 3.2 g/dL 2.2-4.2 [facility] Serum glucose measurement (m ass/volume)Ordered By: Ramakrishna Maher on 07-17-2025 Glucose [Mass/Vol] 88 mg/dL 70-99 [facility] Serum or plasma alanine hester otransferase (ALT) measurementOrdered By: Ramakrishna Maher on 07-17-2025 ALT [Catalytic activity/Vol] 16 U/L <[address] [facility] Serum or plasma albumin marivel urement (mass/volume)Ordered By: Ramakrishna Maher 07-17-2025 Albumin [Mass/Vol] 3.9 g/dL 3.4-4.8 [facility] Serum or plasma albumin/glob ulin mass ratioOrdered By: Ramakrishna Maher 07-17-2025 Albumin/Globulin [Mass ratio] 1.2 {ratio} 0.9-2.[address] [facility] Serum or plasma alkaline wai sphatase measurementOrdered By: Ramakrishna Maher on 07-17-2025 ALP [Catalytic activity/Vol] 89 U/L 35-[address] [facility] Serum or plasma calcium marivel urement (mass/volume)Ordered By: Ramakrishna Maher 07-17-2025 Calcium [Mass/Vol] 8.7 mg/dL 7.6-11.0 [facility] Serum or plasma creatine kin ase activityOrdered By: Ramakrishna Maher on 07-17-2025 CK [Catalytic activity/Vol] 401 U/L High 24-[address] [facility] Serum or plasma urea nitroge n measurement (mass/volume)Ordered By: Ramakrishna Maehr on 07-17-2025 Urea nitrogen [Mass/Vol] 21 mg/dL High 4-[address] [facility] Sodium levelOrdered By: Ramakrishna Maher on 07-17-2025 Sodium [Moles/Vol] 130 mmol/L Low 133-145 [facility] Total proteinOrdered By: Ramakrishna Maher on 07-17-2025 Protein [Mass/Vol] 7.1 g/dL 5.9-8.4 [facility] White blood cell (WBC) count Ordered By: Ramakrishna Maher on 07-17-2025 WBC (Bld) [#/Vol] 7.7 10*3/uL 4.4-11.0 [facility] Absolute lymphocyte countOrd ered By: Mihaela Simpson on 06-26-2025 Lymphocytes Auto (Unsp spec) [#/Vol] 2.19 10*3/uL 0.83-4.[address] [facility] Absolute neutrophil countOrd ered By: Mihaela Simpson on 06-26-2025 Neutrophils (Bld) [#/Vol] 7.4 10*3/uL 2.0-7.[address] [facility] Automated lymphocyte count a s percentage of total leukocytesOrdered By: Mihaela Simpson on 06-26-2025 Lymphocytes/100 WBC Auto (Unsp spec) 21.1 % 19- [facility] Basophil percentageOrdered B y: Mihaela Simpson on 06-26-2025 Basophils/100 WBC (Bld) 0.8 % 0-1 [facility] CBC W/Diff, Automatedon 06-07 Absolute Lymph 2.19 X10 3/uL Normal 0.83-4.[address] [facility] Comment on above: Performed By: #### L 100.9950, L503.6550, L100.0100, L503.0106, L506.1001, L503.6030 ####[facility] [address] [place], [place], [address] Absolute Neut 7.4 X10 3/uL Normal 2.0-7.[address] [facility] Comment on above: Performed By: #### L 100.9950, L503.6550, L100.0100, L503.0106, L506.1001, L503.6030 ####[facility] [address] [place], [address] Basophils/100 WBC (Bld) 0.8 % Normal 0-1 [facility] Comment on above: Performed By: #### L 100.9950, L503.6550, L100.0100, L503.0106, L506.1001, L503.6030 ####[facility] [address] [place], [address] Eosinophils/100 WBC (Bld) 1.4 % Normal 0-[address] [facility] Comment on above: Performed By: #### L 100.9950, L503.6550, L100.0100, L503.0106, L506.1001, L503.6030 ####[facility] [address] [place], [address] Erythrocyte distribution width (RBC) [Ratio] 13.9 % Normal 11.6-14.[address] [facility] Comment on above: Performed By: #### L 100.9950, L503.6550, L100.0100, L503.0106, L506.1001, L503.6030 ####[facility] [address] [place], [address] Hematocrit (Bld) [Volume fraction] 35.8 % Low 37-[address] [facility] Comment on above: Performed By: #### L 100.9950, L503.6550, L100.0100, L503.0106, L506.1001, L503.6030 ####[facility] [address] [place], [address] Hemoglobin (Bld) [Mass/Vol] 11.1 g/dL Low 12.0-15.[address] [facility] Comment on above: Performed By: #### L 100.9950, L503.6550, L100.0100, L503.0106, L506.1001, L503.6030 ####[facility] [address] [place], [address] IG% 0.300 Normal 0.0-0.[address] [facility] Comment on above: Result Comment: IG% - Immature Granulocytes (promyelocytes, myelocytes andmetamyelocytes) > 1% indicates that a LEFT SHIFT is Present. Performed By: #### L 100.9950, L503.6550, L100.0100, L503.0106, L506.1001, L503.6030 ####[facility] [address] [place], [address] Lymphocytes/100 WBC (Bld) 21.1 % Normal 19-[address] [facility] Comment on above: Performed By: #### L 100.9950, L503.6550, L100.0100, L503.0106, L506.1001, L503.6030 ####[facility] [address] [place], [address] MCH (RBC) [Entitic mass] 27.0 pg Normal 27.0-32.[address] [facility] Comment on above: Performed By: #### L 100.9950, L503.6550, L100.0100, L503.0106, L506.1001, L503.6030 ####[facility] [address] [place], [address] MCHC (RBC) [Mass/Vol] 31.0 g/dL Low 32-36 [facility] Comment on above: Performed By: #### L 100.9950, L503.6550, L100.0100, L503.0106, L506.1001, L503.6030 ####[facility] [address] [place], [address] MCV (RBC) [Entitic vol] 87.1 fL Normal 81-99 [facility] Comment on above: Performed By: #### L 100.9950, L503.6550, L100.0100, L503.0106, L506.1001, L503.6030 ####[facility] [address] [place], [address] Monocytes/100 WBC (Bld) 5.4 % Normal 0-10 [facility] Comment on above: Performed By: #### L 100.9950, L503.6550, L100.0100, L503.0106, L506.1001, L503.6030 ####[facility] [address] [place], [address] Neutrophils/100 WBC (Bld) 71.0 % High 47-[address] [facility] Comment on above: Performed By: #### L 100.9950, L503.6550, L100.0100, L503.0106, L506.1001, L503.6030 ####[facility] [address] [place], [address] Nucleated RBC (Bld) [#/Vol] 0 10*3/uL Normal 0-[address] [facility] Comment on above: Performed By: #### L 100.9950, L503.6550, L100.0100, L503.0106, L506.1001, L503.6030 ####[facility] [address] [place], [address] Platelet mean volume (Bld) [Entitic vol] 10.2 fL Normal 6.2-12.[address] [facility] Comment on above: Performed By: #### L 100.9950, L503.6550, L100.0100, L503.0106, L506.1001, L503.6030 ####[facility] [address] [place], [address] Platelets (Bld) [#/Vol] 332 10*3/uL Normal 150-[address] [facility] Comment on above: Performed By: #### L 100.9950, L503.6550, L100.0100, L503.0106, L506.1001, L503.6030 ####[facility] [address] [place], [address] RBC (Bld) [#/Vol] 4.11 10*6/uL Low 4.2-5.4 [facility] Comment on above: Performed By: #### L 100.9950, L503.6550, L100.0100, L503.0106, L506.1001, L503.6030 ####[facility] [address] [place], [address] RDW SD 44.4 fl High 35.1-43.[address] [facility] Comment on above: Performed By: #### L 100.9950, L503.6550, L100.0100, L503.0106, L506.1001, L503.6030 ####[facility] [address] [place], [address] WBC (Bld) [#/Vol] 10.4 10*3/uL Normal 4.4-11.0 [facility] Comment on above: Performed By: #### L 100.9950, L503.6550, L100.0100, L503.0106, L506.1001, L503.6030 ####[facility] [address] [place], [address] Eosinophil percentageOrdered By: Mihaela Simpson on 06-26-2025 Eosinophils/100 WBC (Bld) 1.4 % 0-[address] [facility] Erythrocyte distribution wid th ratioOrdered By: Mihaela Simpson on 06-26-2025 Erythrocyte distribution width (RBC) [Ratio] 13.9 % 11.6-14.[address] [facility] Erythrocyte distribution wid th standard deviationOrdered By: Mihaela Simpson on 06-26-2025 Erythrocyte distribution width (RBC) [Ratio] 44.4 fl High 35.1-43.[address] [facility] Ferritinon 06-26-2025 Ferritin [Mass/Vol] 150 ng/mL Normal 22-378 [facility] Comment on above: Performed By: #### L 100.9950, L503.6550, L100.0100, L503.0106, L506.1001, L503.6030 ####[facility] [address] [place], [address] Hematocrit Auto (Bld) [Volum e fraction]Ordered By: Mihaela Simpson on 06-26-2025 Hematocrit (Bld) [Volume fraction] 35.8 % Low 37-[address] [facility] Hemoglobin measurementOrdere d By: Mihaela Simpson on 06-26-2025 Hemoglobin (Bld) [Mass/Vol] 11.1 g/dL Low 12.0-15.[address] [facility] Immature granulocytes/100 WB C Auto (Bld)Ordered By: Mihaelagermán Simpson on 06-26-2025 Immature granulocytes/100 WBC (Bld) 0.300 % 0.0-0.[address] [facility] Comment on above: IG% - Immature Granu locytes (promyelocytes, myelocytes and metamyelocytes) > 1% indicates that a LEFT SHIFT is Present. Internal Medicine Office Vis iton 06-26-2025 Internal Medicine Office Visit Normal [facility] Iron measurement (mass/mass) Ordered By: Mihaela Simpson on 06-26-2025 Iron (Unsp spec) [Mass/Mass] 40 ug/dL Low 50-[address] [facility] Iron+Iron Binding Capacityon 06-26-2025 Iron [Mass/Vol] 40 ug/dL Low 50-[address] [facility] Comment on above: Performed By: #### L 100.9950, L503.6550, L100.0100, L503.0106, L506.1001, L503.6030 ####[facility] [address] [place], [address] IRON SATURATION 16.0 Normal 13-[address] [facility] Comment on above: Performed By: #### L 100.9950, L503.6550, L100.0100, L503.0106, L506.1001, L503.6030 ####[facility] [address] [place], [address] TIBC 256 ug/dL Normal 250-[address] [facility] Comment on above: Performed By: #### L 100.9950, L503.6550, L100.0100, L503.0106, L506.1001, L503.6030 ####[facility] [address] [place], [address] UIBC 216 ug/dL Low 228-[address] [facility] Comment on above: Performed By: #### L 100.9950, L503.6550, L100.0100, L503.0106, L506.1001, L503.6030 ####[facility] [address] [place], [address] MCV (mean corpuscular volume ) determinationOrdered By: Mihaela Simpson on 06-26-2025 MCV (RBC) [Entitic vol] 87.1 fL 81-99 [facility] Mean corpuscular hemoglobin (MCH) determinationOrdered By: Mihaela Simpson on 06-26-2025 MCH (RBC) [Entitic mass] 27.0 pg 27.0-32.[address] [facility] Mean corpuscular hemoglobin concentration (MCHC) determinationOrdered By: Mihaela Simpson on 06-26-2025 MCHC (RBC) [Mass/Vol] 31.0 g/dL Low 32-36 [facility] Mean platelet volume determi nationOrdered By: Mihaela Simpson on 06-26-2025 Platelet mean volume (Bld) [Entitic vol] 10.2 fL 6.2-12.[address] [facility] Monocyte percentageOrdered B y: Mihaela Simpson on 06-26-2025 Monocytes/100 WBC (Bld) 5.4 % 0-10 [facility] Neutrophil percentageOrdered By: Mihaela Simpson on 06-26-2025 Neutrophils/100 WBC (Bld) 71.0 % High 47-[address] [facility] No Panel InformationOrdered By: Mihaela Simpson on 06-26-2025 Unsaturated Iron Binding Capacity 216 ug/dL Low 228-[address] [facility] Nucleated red blood cell per centageOrdered By: Mihaela Simpson on 06-26-2025 Nucleated RBC/100 WBC (Bld) [Ratio] 0 % 0-[address] [facility] Platelet countOrdered By: Clifton Simpson on 06-26-2025 Platelets (Bld) [#/Vol] 332 10*3/uL 150-[address] [facility] RBC Auto (Bld) [#/Vol]Ordere d By: Mihaela Simpson on 06-26-2025 RBC (Bld) [#/Vol] 4.11 10*6/uL Low 4.2-5.4 [facility] Retic Panelon 06-26-2025 IM RET FRACTION 7.70 Normal 3.00-15.[address] [facility] Comment on above: Performed By: #### L 100.9950, L503.6550, L100.0100, L503.0106, L506.1001, L503.6030 ####[facility] [address] [place], [place], [id number] RET-HE 27.3 pg Low 30-[address] [facility] Comment on above: Performed By: #### L 100.9950, L503.6550, L100.0100, L503.0106, L506.1001, L503.6030 ####[facility] [address] [place], [place], [id number]) Retic Count 2.20 High 0.5-1.[address] [facility] Comment on above: Performed By: #### L 100.9950, L503.6550, L100.0100, L503.0106, L506.1001, L503.6030 ####[facility] [address] [place], [place], [id number] Reticulocyte hemoglobin equi valent (RET-He) measurementOrdered By: Mihaela Simpson on 06-26-2025 Hemoglobin (Reticulocytes) [Entitic mass] 27.3 pg Low 30-[address] [facility] Reticulocytes Auto (Bld) [#/ Vol]Ordered By: Mihaela Simpson on 06-26-2025 Reticulocytes/100 RBC (Bld) 2.20 % High 0.5-1.[address] [facility] Serum or plasma ferritin josé miguel surement (mass/volume)Ordered By: Mihaela Simpson on 06-26-2025 Ferritin [Mass/Vol] 150 ng/mL 22-378 [facility] Serum or plasma iron saturat ion measurement (mass fraction)Ordered By: Mihaela Simpson on 06-26-2025 Iron saturation [Mass fraction] 16.0 % 13-[address] [facility] Vitamin B12on 06-26-2025 Cobalamin (Vitamin B12) [Mass/Vol] 472 pg/mL Normal 180-[address] [facility] Comment on above: Performed By: #### L 100.9950, L503.6550, L100.0100, L503.0106, L506.1001, L503.6030 ####[facility] [address] [place], [place], [id number] Vitamin B12 ser/plasOrdered By: Mihaela Simpson on 06-26-2025 Cobalamin (Vitamin B12) [Mass/Vol] 472 pg/mL 180-[address] [facility] Vitamin D,25 Hydroxyon 06-26 Vitamin D 25-OH 69.4 ng/mL Normal 30-[address] [facility] Comment on above: Result Comment: Shania min D StatusDeficiency: <20 ng/mL (50nmol/L)Insufficiency: 20-30 ng/mL (50-75 nmol/L)Sufficiency: 30-100 ng/mL (75-250 nmol/L)Toxicity: >100 ng/mL (>250 nmol/L) Performed By: #### L 100.9950, L503.6550, L100.0100, L503.0106, L506.1001, L503.6030 ####[facility] [address] [place], [address] White blood cell (WBC) count Ordered By: Mihaela Simpson on 06-26-2025 WBC (Bld) [#/Vol] 10.4 10*3/uL 4.4-11.0 [facility] Pulmonary Visit Reporton Pulmonary Visit Report Normal [facility] Thyroidon 05-07-[address]25 Thyroid [address] [facility] ECG 12-LEADon 04-30-2025 ECG 12-LEAD Sinus Rhythm -Right atrial enlargement. BORDERLINE Normal [facility] No Panel Informationon 04-30 Sinus Rhythm -Right atrial enlargement. BORDERLINE [facility] Low Dose CT Lung Screeningon 04-17-[address] Lung Screening Normal [facility] Absolute lymphocyte countOrd ered By: Jennifer Gordon on 2025 Lymphocytes Auto (Unsp spec) [#/Vol] 1.98 10*3/uL 0.83-4.[address] [facility] Absolute neutrophil countOrd ered By: Jennifer Gordon on 2025 Neutrophils (Bld) [#/Vol] 7.8 10*3/uL High 2.0-7.[address] [facility] Anion gap in Serum or Plasma Ordered By: Jennifer Gordon on 2025 Anion gap [Moles/Vol] 10 mmol/L 5-15 [facility] Automated lymphocyte count a s percentage of total leukocytesOrdered By: Jennifer Gordon on 2025 Lymphocytes/100 WBC Auto (Unsp spec) 18.1 % Low 19-[address] [facility] BUN/creatinine ratioOrdered By: Jennifer Gordon on 2025 Urea nitrogen/Creatinine [Mass ratio] 13.9 mg/mg 10-[address] [facility] Basophil percentageOrdered B y: Jennifer Gordon on 2025 Basophils/100 WBC (Bld) 1.0 % 0-1 [facility] Bilirubin Test strip Ql (U)O rdered By: Jennifer Gordon on 2025 Bilirubin Ql (U) Negative Negative [facility] Bilirubin, totalOrdered By: Jennifer Gordon on 2025 Bilirubin [Mass/Vol] 0.17 mg/dL 0.00-1.30 [facility] CBC W/Diff, Automatedon 04-06 Absolute Lymph 1.98 X10 3/uL Normal 0.83-4.[address] [facility] Comment on above: Performed By: #### L 100.0100, L500.4100, L501.9985, L500.4050 ####[facility] [address] [place], [address] Absolute Neut 7.8 X10 3/uL High 2.0-7.[address] [facility] Comment on above: Performed By: #### L 100.0100, L500.4100, L501.9985, L500.4050 ####[facility] [address] [place], [address] Basophils/100 WBC (Bld) 1.0 % Normal 0-1 [facility] Comment on above: Performed By: #### L 100.0100, L500.4100, L501.9985, L500.4050 ####[facility] [address] [place], [address] Eosinophils/100 WBC (Bld) 2.2 % Normal 0-[address] [facility] Comment on above: Performed By: #### L 100.0100, L500.4100, L501.9985, L500.4050 ####[facility] [address] [place], [address] Erythrocyte distribution width (RBC) [Ratio] 15.2 % High 11.6-14.[address] [facility] Comment on above: Performed By: #### L 100.0100, L500.4100, L501.9985, L500.4050 ####[facility] [address] [place], [address] Hematocrit (Bld) [Volume fraction] 34.9 % Low 37-[address] [facility] Comment on above: Performed By: #### L 100.0100, L500.4100, L501.9985, L500.4050 ####[facility] [address] [place], [address] Hemoglobin (Bld) [Mass/Vol] 10.5 g/dL Low 12.0-15.[address] [facility] Comment on above: Performed By: #### L 100.0100, L500.4100, L501.9985, L500.4050 ####[facility] [address] [place], [address] IG% 0.500 Normal 0.0-0.[address] [facility] Comment on above: Result Comment: IG% - Immature Granulocytes (promyelocytes, myelocytes andmetamyelocytes) > 1% indicates that a LEFT SHIFT is Present. Performed By: #### L 100.0100, L500.4100, L501.9985, L500.4050 ####[facility] [address] [place], [address] Lymphocytes/100 WBC (Bld) 18.1 % Low 19-[address] [facility] Comment on above: Performed By: #### L 100.0100, L500.4100, L501.9985, L500.4050 ####[facility] [address] [place], [address] MCH (RBC) [Entitic mass] 25.9 pg Low 27.0-32.[address] [facility] Comment on above: Performed By: #### L 100.0100, L500.4100, L501.9985, L500.4050 ####[facility] [address] [place], [address] MCHC (RBC) [Mass/Vol] 30.1 g/dL Low 32-36 [facility] Comment on above: Performed By: #### L 100.0100, L500.4100, L501.9985, L500.4050 ####[facility] [address] [place], [address] MCV (RBC) [Entitic vol] 86.2 fL Normal 81-99 [facility] Comment on above: Performed By: #### L 100.0100, L500.4100, L501.9985, L500.4050 ####[facility] [address] [place], [address] Monocytes/100 WBC (Bld) 7.0 % Normal 0-10 [facility] Comment on above: Performed By: #### L 100.0100, L500.4100, L501.9985, L500.4050 ####[facility] [address] [place], [address] Neutrophils/100 WBC (Bld) 71.2 % High 47-[address] [facility] Comment on above: Performed By: #### L 100.0100, L500.4100, L501.9985, L500.4050 ####[facility] [address] [place], [address] Nucleated RBC (Bld) [#/Vol] 0 10*3/uL Normal 0-[address] [facility] Comment on above: Performed By: #### L 100.0100, L500.4100, L501.9985, L500.4050 ####[facility] [address] [place], [address] Platelet mean volume (Bld) [Entitic vol] 10.5 fL Normal 6.2-12.[address] [facility] Comment on above: Performed By: #### L 100.0100, L500.4100, L501.9985, L500.4050 ####[facility] [address] [place], [address] Platelets (Bld) [#/Vol] 347 10*3/uL Normal 150-[address] [facility] Comment on above: Performed By: #### L 100.0100, L500.4100, L501.9985, L500.4050 ####[facility] [address] [place], [address] RBC (Bld) [#/Vol] 4.05 10*6/uL Low 4.2-5.4 [facility] Comment on above: Performed By: #### L 100.0100, L500.4100, L501.9985, L500.4050 ####[facility] [address] [place], [address] RDW SD 47.7 fl High 35.1-43.[address] [facility] Comment on above: Performed By: #### L 100.0100, L500.4100, L501.9985, L500.4050 ####[facility] [address] [place], [address] WBC (Bld) [#/Vol] 10.9 10*3/uL Normal 4.4-11.0 [facility] Comment on above: Performed By: #### L 100.0100, L500.4100, L501.9985, L500.4050 ####[facility] [address] [place], [address] Calculated very low density lipoprotein (VLDL) cholesterol measurementOrdered By: Jennifer Heidi on 2025 Calculated very low density lipoprotein (VLDL) cholesterol measurement 32 mg/dL 5-[address] [facility] Carbon dioxide, total [Moles /volume] in Central venous bloodOrdered By: Jennifer Heidi on 2025 CO2 [Moles/Vol] 29.0 mmol/L 21.0-32.[address] [facility] Chloride assayOrdered By: Al ycia Heidi on 2025 Chloride [Moles/Vol] 97 mmol/L Low 98-108 [facility] Comprehensive Metabolic Prof ilon 2025 Albumin [Mass/Vol] 4.2 g/dL Normal 3.4-4.8 [facility] Comment on above: Performed By: #### L 100.0100, L500.4100, L501.9985, L500.4050 ####[facility] [address] [place], [address] Albumin/Globulin [Mass ratio] 1.3 {ratio} Normal 0.9-2.[address] [facility] Comment on above: Performed By: #### L 100.0100, L500.4100, L501.9985, L500.4050 ####[facility] [address] [place], [address] ALK PHOS 80 U/L Normal 35-[address] [facility] Comment on above: Performed By: #### L 100.0100, L500.4100, L501.9985, L500.4050 ####[facility] [address] [place], [address] ALT [Catalytic activity/Vol] 27 U/L Normal <=[address] [facility] Comment on above: Performed By: #### L 100.0100, L500.4100, L501.9985, L500.4050 ####[facility] [address] [place], [address] AST [Catalytic activity/Vol] 27 U/L Normal <=[address] [facility] Comment on above: Performed By: #### L 100.0100, L500.4100, L501.9985, L500.4050 ####[facility] [address] [place], [address] Bilirubin [Mass/Vol] 0.17 mg/dL Normal 0.00-1.30 [facility] Comment on above: Performed By: #### L 100.0100, L500.4100, L501.9985, L500.4050 ####[facility] [address] [place], [address] BUN/CRE 13.9 RATIO Normal 10-[address] [facility] Comment on above: Performed By: #### L 100.0100, L500.4100, L501.9985, L500.4050 ####[facility] [address] [place], [address] Calcium [Mass/Vol] 9.5 mg/dL Normal 7.6-11.0 [facility] Comment on above: Performed By: #### L 100.0100, L500.4100, L501.9985, L500.4050 ####[facility] [address] [place], [address] Chloride [Moles/Vol] 97 mmol/L Low 98-108 [facility] Comment on above: Performed By: #### L 100.0100, L500.4100, L501.9985, L500.4050 ####[facility] [address] [place], [address] CO2 [Moles/Vol] 29.0 mmol/L Normal 21.0-32.[address] [facility] Comment on above: Performed By: #### L 100.0100, L500.4100, L501.9985, L500.4050 ####[facility] [address] [place], [address] Creatinine [Mass/Vol] 1.47 mg/dL High 0.70-1.20 [facility] Comment on above: Performed By: #### L 100.0100, L500.4100, L501.9985, L500.4050 ####[facility] [address] [place], [address] GAP 10 Normal 5-[address] [facility] Comment on above: Performed By: #### L 100.0100, L500.4100, L501.9985, L500.4050 ####[facility] [address] [place], [address] GFR/1.73 sq M.predicted among non-blacks MDRD (S/P/Bld) [Vol rate/Area] 39 mL/min/{1.73_m2} Low >[address] [facility] Comment on above: Result Comment: mL/m in/1.73m2 CKD-EPI Creatinine Equation (2020) Performed By: #### L 100.0100, L500.4100, L501.9985, L500.4050 ####[facility] [address] [place], [address] Globulin (S) [Mass/Vol] 3.3 g/dL Normal 2.2-4.2 [facility] Comment on above: Performed By: #### L 100.0100, L500.4100, L501.9985, L500.4050 ####[facility] [address] [place], [address] Glucose [Mass/Vol] 98 mg/dL Normal 70-99 [facility] Comment on above: Performed By: #### L 100.0100, L500.4100, L501.9985, L500.4050 ####[facility] [address] [place], [address] Potassium [Moles/Vol] 5.6 mmol/L High 3.3-5.1 [facility] Comment on above: Performed By: #### L 100.0100, L500.4100, L501.9985, L500.4050 ####[facility] [address] [place], [address] Sodium [Moles/Vol] 135 mmol/L Normal 133-145 [facility] Comment on above: Performed By: #### L 100.0100, L500.4100, L501.9985, L500.4050 ####[facility] [address] [place], [address] T PROT 7.5 g/dL Normal 5.9-8.[address] [facility] Comment on above: Performed By: #### L 100.0100, L500.4100, L501.9985, L500.4050 ####[facility] [address] [place], [address] Urea nitrogen [Mass/Vol] 20 mg/dL High 4-[address] [facility] Comment on above: Performed By: #### L 100.0100, L500.4100, L501.9985, L500.4050 ####[facility] [address] [place], [address] Eosinophil percentageOrdered By: Jennifer Gordon on 2025 Eosinophils/100 WBC (Bld) 2.2 % 0-[address] [facility] Erythrocyte distribution wid th ratioOrdered By: Jennifer Gordon on 2025 Erythrocyte distribution width (RBC) [Ratio] 15.2 % High 11.6-14.[address] [facility] Erythrocyte distribution wid th standard deviationOrdered By: Jennifer Gordon on 2025 Erythrocyte distribution width (RBC) [Ratio] 47.7 fl High 35.1-43.[address] [facility] Glomerular filtration rate ( GFR) estimation/1.73 sq m using serum, plasma, or whole bOrdered By: Jennifer Gordon on 2025 GFR/1.73 sq M.predicted among non-blacks MDRD (S/P/Bld) [Vol rate/Area] 39 mL/min/{1.73_m2} Low >[address] [facility] Comment on above: mL/min/1.73m2 CKD-EP I Creatinine Equation (2020) Hematocrit Auto (Bld) [Volum e fraction]Ordered By: Jennifer Gordon on 2025 Hematocrit (Bld) [Volume fraction] 34.9 % Low 37-[address] [facility] Hemoglobin A1con 2025 HbA1c (Bld) [Mass fraction] 5.7 % Normal <=5.[address] [facility] Comment on above: Result Comment: Norm al < 5.7 % Prediabetic 5.7 - 6.4 % Diabetic >or= 6.5 % Please note range changes. Performed By: #### L 100.0100, L500.4100, L501.9985, L500.4050 ####[facility] [address] [place], [address] Hemoglobin A1c percentageOrd ered By: Jennifer Gordon on 2025 HbA1c (Bld) [Mass fraction] 5.7 % <5.[address] [facility] Comment on above: Normal < 5.7 % Predi abetic 5.7 - 6.4 % Diabetic >or= 6.5 % Please note range changes. Hemoglobin measurementOrdere d By: Jennifer Gordon on 2025 Hemoglobin (Bld) [Mass/Vol] 10.5 g/dL Low 12.0-15.[address] [facility] Immature granulocytes/100 WB C Auto (Bld)Ordered By: Jennifer Gordon on 2025 Immature granulocytes/100 WBC (Bld) 0.500 % 0.0-0.[address] [facility] Comment on above: IG% - Immature Granu locytes (promyelocytes, myelocytes and metamyelocytes) > 1% indicates that a LEFT SHIFT is Present. Ketones Test strip Ql (U)Ord ered By: Jennifer Gordon on 2025 Ketones Ql (U) Negative Negative [facility] LDL calc ser/plasOrdered By: Jennifer Gordon on 2025 Cholesterol in LDL [Mass/Vol] 137 mg/dL [facility] Comment on above: Cqqmyiapik=409-816 m g/dL & Higher Yjhf=277 mg/dL or greater Laboratory - Chemistry and C hemistry - challengeOrdered By: Jennifer Gordon on 2025 AST [Catalytic activity/Vol] 27 U/L <[address] [facility] Lipid Profileon 2025 CHOL:HDL 4.[address] [facility] Comment on above: Performed By: #### L 100.0100, L500.4100, L501.9985, L500.4050 ####[facility] [address] [place], [address] Cholesterol [Mass/Vol] 214 mg/dL High <=200 [facility] Comment on above: Result Comment: Chol esterol level, Desirable <200 mg/dLBorderline high cholesterol 200-239 mg/dLHigh cholesterol >=240 mg/dLRecommendations of the NCEP Adult Treatment Panel for thefollowing risk-cutoff thresholds for the [place] [facility] center[facility]. Performed By: #### L 100.0100, L500.4100, L501.9985, L500.4050 ####[facility] [address] [place], [address] Cholesterol in HDL [Mass/Vol] 45 mg/dL Normal [facility] Comment on above: Result Comment: Vibha onal Cholesterol Education Program (NCEP) guidelines:<40 mg/dL: Low HDL-cholesterol (major risk factor for CHD)>= 60 mg/dL: High HDL-cholesterol (negative risk factor forCHD)HDL-cholesterol is affected by a number of factors, e.g.smoking, exercise, hormones, sex and age. Performed By: #### L 100.0100, L500.4100, L501.9985, L500.4050 ####[facility] [address] [place], [address] Cholesterol in LDL [Mass/Vol] 137 mg/dL Normal [facility] Comment on above: Result Comment: Bord qqaqpk=017-844 mg/dL Higher Sddc=560 mg/dL or greater Performed By: #### L 100.0100, L500.4100, L501.9985, L500.4050 ####[facility] [address] [place], [address] Cholesterol in VLDL [Mass/Vol] 32 mg/dL Normal 5-[address] [facility] Comment on above: Performed By: #### L 100.0100, L500.4100, L501.9985, L500.4050 ####[facility] [address] [place], [address] Triglyceride [Mass/Vol] 160 mg/dL Normal [facility] Comment on above: Result Comment: The drugs N-Acetylcysteine and Metamizole may falselydepress this assay.Normal range: <150 mg/dLBorderline High: 150-199 mg/dLHigh: 200-499 mg/dLVery High: >500 mg/dL Performed By: #### L 100.0100, L500.4100, L501.9985, L500.4050 ####[facility] [address] [place], [place], [address] MCV (mean corpuscular volume ) determinationOrdered By: Jennifer Gordon on 2025 MCV (RBC) [Entitic vol] 86.2 fL 81-99 [facility] Mean corpuscular hemoglobin (MCH) determinationOrdered By: Jennifer Gordon on 2025 MCH (RBC) [Entitic mass] 25.9 pg Low 27.0-32.[address] [facility] Mean corpuscular hemoglobin concentration (MCHC) determinationOrdered By: Jennifer Gordon on 2025 MCHC (RBC) [Mass/Vol] 30.1 g/dL Low 32-36 [facility] Mean platelet volume determi nationOrdered By: Jennifer Gordon on 2025 Platelet mean volume (Bld) [Entitic vol] 10.5 fL 6.2-12.[address] [facility] Microscopic analysis of urin e for red blood cells (RBC)Ordered By: Jennifer Gordon on 2025 Microscopic analysis of urine for red blood cells (RBC) 0-5 SEEN /hpf 0-[address] [facility] Monocyte percentageOrdered B y: Jennifer Gordon on 2025 Monocytes/100 WBC (Bld) 7.0 % 0-10 [facility] Mucus LM Ql (Urine sed)Order ed By: Jennifer Gordon on 2025 Mucus Ql (Urine sed) 0 SEEN /hpf [facility] Neutrophil percentageOrdered By: Jennifer Gordon on 2025 Neutrophils/100 WBC (Bld) 71.2 % High 47-[address] [facility] Nitrite Test strip Ql (U)Ord ered By: Jennifer Gordon on 2025 Nitrite Ql (U) Negative Negative [facility] Nucleated red blood cell per centageOrdered By: Jennifer Gordon on 2025 Nucleated RBC/100 WBC (Bld) [Ratio] 0 % 0-[address] [facility] Platelet countOrdered By: Felipe Gordon on 2025 Platelets (Bld) [#/Vol] 347 10*3/uL 150-[address] [facility] Potassium measurement (mass/ volume)Ordered By: Jennifer Gordon on 2025 Potassium (Unsp spec) [Mass/Vol] 5.6 mmol/L High 3.3-5.[address] [facility] Protein Test strip Ql (U)Ord ered By: Jennifer Gordon on 2025 Protein Ql (U) 100 mg/dl High Negative [facility] RBC Auto (Bld) [#/Vol]Ordere d By: Jennifer Gordon on 2025 RBC (Bld) [#/Vol] 4.05 10*6/uL Low 4.2-5.4 [facility] Screening total cholesterol/ high density lipoprotein (HDL) cholesterol ratioOrdered By: Jennifer Gordon on 2025 Cholesterol.total/Camille sterol in HDL [Mass ratio] 4.76 {ratio} [facility] Serum creatinine measurement (mass/volume)Ordered By: Jennifer Gordon on 2025 Creatinine [Mass/Vol] 1.47 mg/dL High 0.70-1.20 [facility] Serum globulin measurementOr dered By: Jennifer Gordon on 2025 Globulin (S) [Mass/Vol] 3.3 g/dL 2.2-4.2 [facility] Serum glucose measurement (m ass/volume)Ordered By: Jennifer Gordon on 2025 Glucose [Mass/Vol] 98 mg/dL 70-99 [facility] Serum or plasma alanine hester otransferase (ALT) measurementOrdered By: Jennifer Gordon on 2025 ALT [Catalytic activity/Vol] 27 U/L <[address] [facility] Serum or plasma albumin marivel urement (mass/volume)Ordered By: Jennifer Gordon on 2025 Albumin [Mass/Vol] 4.2 g/dL 3.4-4.8 [facility] Serum or plasma albumin/glob ulin mass ratioOrdered By: Jennifer Gordon on 2025 Albumin/Globulin [Mass ratio] 1.3 {ratio} 0.9-2.[address] [facility] Serum or plasma alkaline wai sphatase measurementOrdered By: Jennifer Gordon on 2025 ALP [Catalytic activity/Vol] 80 U/L 35-[address] [facility] Serum or plasma calcium marivel urement (mass/volume)Ordered By: Jennifer Gordon on 2025 Calcium [Mass/Vol] 9.5 mg/dL 7.6-11.0 [facility] Serum or plasma cholesterol in HDL measurement (mass/volume)Ordered By: Jennifer Gordon on 2025 Cholesterol in HDL [Mass/Vol] 45 mg/dL >[address] [facility] Comment on above: National Cholesterol Education Program (NCEP) guidelines:<40 mg/dL: Low HDL-cholesterol (major risk factor for CHD)>= 60 mg/dL: High HDL-cholesterol (negative risk factor for CHD)HDL-cholesterol is affected by a number of factors, e.g. smoking, exercise, hormones, sex and age. Serum or plasma cholesterol measurement (mass/volume)Ordered By: Jennifer Gordon on 2025 Cholesterol [Mass/Vol] 214 mg/dL High <201 [facility] Comment on above: Cholesterol level, D esirable <200 mg/dLBorderline high cholesterol 200-239 mg/dLHigh cholesterol >=240 mg/dLRecommendations of the NCEP Adult Treatment Panel for the following risk-cutoff thresholds for the [place] population. Serum or plasma urea nitroge n measurement (mass/volume)Ordered By: Jennifer Gordon on 2025 Urea nitrogen [Mass/Vol] 20 mg/dL High 4-[address] [facility] Sodium levelOrdered By: Ashley Gordon on 2025 Sodium [Moles/Vol] 135 mmol/L 133-145 [facility] Squamous epithelial cells de tection in urine sediment by light microscopyOrdered By: Jennifer Gordon on 2025 Epithelial cells.squamous LM Ql (Urine sed) 0-5 SEEN /hpf - [facility] TSH DL <= 0.005 mIU/L QnOrde red By: Jennifer Gordon on 2025 TSH Qn 0.566 uIU/mL 0.300-4.[address] [facility] Thyroid Stim Hormone (TSH)on 2025 TSH 0.566 uIU/mL Normal 0.300-4.[address] [facility] Comment on above: Performed By: #### L 501.9520 ####[facility] [address] [place], [place], [id number] Total proteinOrdered By: Amadou Gordon on 2025 Protein [Mass/Vol] 7.5 g/dL 5.9-8.4 [facility] Triglycerides measurementOrd ered By: Jennifer Gordon on 2025 Triglyceride [Mass/Vol] 160 mg/dL <199 [facility] Comment on above: The drugs N-Acetylcy steine and Metamizole may falsely depress this assay. Normal range: <150 mg/dLBorderline High: 150-199 mg/dLHigh: 200-499 mg/dLVery High: >500 mg/dL Urinalysis, Completeon 04-16 EPI,SQUAMOUS 0-5 SEEN Normal 03-[address] [facility] Comment on above: Order Comment: COLLE CTOR TO SPECIFY Performed By: #### L 400.0001 ####[facility] [address] [place], [address] RBC 0-5 SEEN Normal 0-[address] [facility] Comment on above: Order Comment: MAE CTOR TO SPECIFY Performed By: #### L 400.0001 ####[facility] [address] [place], [address] WBC 0-5 SEEN Normal 0-[address] [facility] Comment on above: Order Comment: MAE CTOR TO SPECIFY Performed By: #### L 400.0001 ####[facility] [address] [place], [address] BACTERIA 0 SEEN Normal None Seen [facility] Comment on above: Order Comment: MAE CTOR TO SPECIFY Performed By: #### L 400.0001 ####[facility] [address] [place], [address] Mucus Ql (Urine sed) 0 SEEN Normal [facility] Comment on above: Order Comment: MAE CTOR TO SPECIFY Performed By: #### L 400.0001 ####[facility] [address] [place], [address] Urine clarityOrdered By: Amadou Gordon on 2025 Clarity (U) Clear Clear [facility] Urine color determinationOrd ered By: Jennifer Gordon on 2025 Color (U) Straw Yellow [facility] Urine glucose detectionOrder ed By: Jennifer Gordon on 2025 Glucose Ql (U) Normal mg/dl Normal [facility] Urine leukocyte esterase det ection by dipstickOrdered By: Jennifer Gordon on 2025 Leukocyte esterase Test strip Ql (U) Negative Negative [facility] Urine pHOrdered By: Jennifer ayala on 2025 pH (U) 6.5 [pH] 5.0 - 8.[address] [facility] Urine sediment bacteria coun t by microscopy (number/high power field)Ordered By: Jennifer Gordon on 2025 Bacteria LM.HPF (Urine sed) [#/Area] 0 /[HPF] None Seen [facility] Urine specific gravity measu rementOrdered By: Jeninfer Gordon on 2025 Specific gravity (U) [Rel density] 1.010 1.002-1.[address] [facility] Urine urobilinogen measureme ntOrdered By: Jennifer Gordon on 2025 Urobilinogen Ql (U) Normal mg/dl Normal [facility] White blood cell (WBC) count Ordered By: Jennifer Gordon on 2025 WBC (Bld) [#/Vol] 10.9 10*3/uL 4.4-11.0 [facility] White blood cell countOrdere d By: Jennifer Gordon on 2025 White blood cell count 0-5 SEEN /hpf 0-[address] [facility] Internal Medicine Office Vis iton 04-15-2025 Internal Medicine Office Visit Normal [facility] MR CARDIAC MORPHOLOGY WITH A ND WITHOUT CONTRAST WITHOUT VELOCITY FLOWon 04-07-2025 MR CARDIAC MORPHOLOGY WITH AND WITHOUT CONTRAST WITHOUT VELOCITY FLOW [facility] CMR Report Name: RADHA SHAFER Eli : [...] None Karishma (more content not included)... Normal [facility] Comment on above: Order Comment: Injur y/Trauma or Illness?:Illness/Other How long have you had these symptoms (acute/chronic)?:Chronic Reason for exam?:A-fib [facility] TO READ Type of Exam?:Initial Additional signs and symptoms?:n POC CREATININE - RALSon Creatinine [Mass/Vol] 1.5 mg/dL High 0.6-1.2 [facility] Comment on above: Performed By: #### 4 [id number] #### LAB [address] [place] [address] Maurice Coello M.D. [id number] Pulmonary Visit Reporton Pulmonary Visit Report Normal [facility] Orthopedic Visit Reporton Orthopedic Visit Report Normal [facility] Neurology Visit Reporton Neurology Visit Report Normal [facility] L/S Spine Min 4 Viewson 02-05 L/S Spine Min 4 Views Normal [facility] Orthopedic Visit Reporton Orthopedic Visit Report Normal [facility] Upper Ext Joint Only(Routine )on 02-25-2025 Upper Ext Joint Only(Routine) Normal [facility] BASIC METABOLIC PANELon 02-04 Anion gap [Moles/Vol] 16 mmol/L Normal 10-20 [facility] Comment on above: Order Comment: [facility] has implemented the eGFR calculation approach that does not have a coefficient for race that conforms to the NKF-ASN Task Force Recommendations. Performed By: #### 4 6124 #### LAB [address] [place], [place] [address] Maurice Coello M.D. [id number] Calcium [Mass/Vol] 9.1 mg/dL Normal 8.4-10.2 [facility] Comment on above: Order Comment: [facility] has implemented the eGFR calculation approach that does not have a coefficient for race that conforms to the NKF-ASN Task Force Recommendations. Performed By: #### 4 6124 #### LAB [address] [place], [place] [address] Maurice Coello M.D. [id number] Chloride [Moles/Vol] 99 mmol/L Normal 98-108 [facility] Comment on above: Order Comment: [facility] has implemented the eGFR calculation approach that does not have a coefficient for race that conforms to the NKF-ASN Task Force Recommendations. Performed By: #### 4 6124 #### LAB [address] [place], [place] [address] Maurice Coello M.D. [id number] Creatinine [Mass/Vol] 1.70 mg/dL High 0.60-1.10 [facility] Comment on above: Order Comment: [facility] has implemented the eGFR calculation approach that does not have a coefficient for race that conforms to the NKF-ASN Task Force Recommendations. Performed By: #### 4 6124 #### LAB [address] [address] Maurice Coello M.D. [id number] EGFR 33 mL/min/1.73 m2 Low >=60 [facility] Comment on above: Order Comment: [facility] has implemented the eGFR calculation approach that does not have a coefficient for race that conforms to the NKF-ASN Task Force Recommendations. Result Comment: Ericka mated GFR was calculated using the 2020 CKD-EPI creatinine equation. Performed By: #### 4 6124 #### LAB [address] [id number] Maurice Coello M.D. [id number] Glucose [Mass/Vol] 119 mg/dL High 65-99 [facility] Comment on above: Order Comment: [facility] has implemented the eGFR calculation approach that does not have a coefficient for race that conforms to the NKF-ASN Task Force Recommendations. Performed By: #### 4 6124 #### LAB [address] [address] Maurice Coello M.D. [id number] HCO3 (Bld) [Moles/Vol] 26 mmol/L Normal 21-32 [facility] Comment on above: Order Comment: [facility] has implemented the eGFR calculation approach that does not have a coefficient for race that conforms to the NKF-ASN Task Force Recommendations. Performed By: #### 4 6124 #### LAB [address] [address] Maurice Coello M.D. [id number] Potassium [Moles/Vol] 3.8 mmol/L Normal 3.5-5.1 [facility] Comment on above: Order Comment: [facility] has implemented the eGFR calculation approach that does not have a coefficient for race that conforms to the NKF-ASN Task Force Recommendations. Performed By: #### 4 6124 #### LAB [address] [place], [place] [address] Maurice Coello M.D. [id number] Sodium [Moles/Vol] 137 mmol/L Normal 135-145 [facility] Comment on above: Order Comment: [facility] has implemented the eGFR calculation approach that does not have a coefficient for race that conforms to the NKF-ASN Task Force Recommendations. Performed By: #### 4 6124 #### LAB [address] [address] Maurice Coello M.D. [id number] Urea nitrogen [Mass/Vol] 22 mg/dL Normal 8-25 [facility] Comment on above: Order Comment: [facility] has implemented the eGFR calculation approach that does not have a coefficient for race that conforms to the NKF-ASN Task Force Recommendations. Performed By: #### 4 6124 #### LAB [address] [address] Maurice Coello M.D. [id number] Urea nitrogen/Creatinine [Mass ratio] 12.9 mg/mg Normal 10.0-20.0 [facility] Comment on above: Order Comment: [facility] has implemented the eGFR calculation approach that does not have a coefficient for race that conforms to the NKF-ASN Task Force Recommendations. Performed By: #### 4 6124 #### LAB [address] [place], [place] [address] Maurice Coello M.D. [id number] Basic metabolic 2000 panelon 02-18-2025 Anion gap [Moles/Vol] 16 mmol/L 10 - 2 0 mmol/L [facility] Calcium [Mass/Vol] 9.1 mg/dL 8.4 - 10. 2 mg/dL [facility] Chloride [Moles/Vol] 99 mmol/L 98 - 10 8 mmol/L [facility] Creatinine [Mass/Vol] 1.7 mg/dL High 0.60 - 1.20 mg/dL [facility] GFR/1.73 sq M.predicted CKD-EPI (S/P/Bld) [Vol rate/Area] 33 Low - PINF [facility] Comment on above: Estimated GFR was ca lculated using the 2020 CKD-EPI creatinine equation. Glucose [Mass/Vol] 119 mg/dL High 65 - 99 mg/dL [facility] HCO3 [Moles/Vol] 26 mmol/L 21 - 32 mmol/L [facility] Interpretation and review of laboratory results Abnormal [facility] Potassium [Moles/Vol] 3.8 mmol/L 3.5 - 5.1 mmol/L [facility] Sodium [Moles/Vol] 137 mmol/L 135 - 145 mmol/L [facility] Urea nitrogen [Mass/Vol] 22 mg/dL 8 - 25 mg/dL [facility] Urea nitrogen/Creatinine [Mass ratio] 12.9 mg/mg 10.0 - 20.0 [facility] has implemented the eGFR calculation approach that does not have a coefficient for race that conforms to the NKF-ASN Task Force Recommendations. [facility] CBC Auto Differentialon 02-04 Basophils (Bld) [#/Vol] 0.03 10*3/uL [facility] Basophils/100 WBC (Bld) 0.3 % [facility] Eosinophils (Bld) [#/Vol] 0.09 10*3/uL [facility] Eosinophils/100 WBC (Bld) 1 % [facility] Erythrocyte distribution width (RBC) [Entitic vol] 14.2 % 11.6 - 14.8 % [facility] Hematocrit (Bld) [Volume fraction] 33.1 % Low 36.0 - 46.0 % [facility] Hemoglobin (Bld) [Mass/Vol] 9.9 g/dL Low 12.0 - 16.0 g/dL [facility] Immature granulocytes (Bld) [#/Vol] 0.16 10*3/uL [facility] Immature granulocytes/100 WBC (Bld) 1.7 % [facility] Comment on above: The IG parameter is the percentage of metamyelocytes, myelocytes and promyelocytes. An immature granulocyte count (IG) of 1% or more suggests the possibility of infection, an IG count of 3% is very likely related to an infection. Interpretation and review of laboratory results Abnormal [facility] Lymphocytes (Bld) [#/Vol] 1.29 10*3/uL [facility] Lymphocytes/100 WBC (Bld) 13.8 % [facility] MCH (RBC) [Entitic mass] 25.8 pg Low 26.0 - 34.0 pg [facility] MCHC (RBC) [Mass/Vol] 29.9 g/dL Low 31.0 - 37.0 g/dL [facility] MCV (RBC) [Entitic vol] 86.4 fL 80.0 - 100.0 fL [facility] Monocytes (Bld) [#/Vol] 0.6 10*3/uL [facility] Monocytes/100 WBC (Bld) 6.4 % [facility] Neutrophils (Bld) [#/Vol] 7.15 10*3/uL High [facility] Neutrophils/100 WBC (Bld) 76.8 % [facility] Nucleated RBC (Bld) [#/Vol] 0 10*3/uL [facility] Nucleated RBC/100 WBC (Bld) [Ratio] 0 % [facility] Platelet mean volume (Bld) [Entitic vol] 9.9 fL 9.4 - 12.4 fL [facility] Platelets (Bld) [#/Vol] 277 10*3/uL [facility] RBC (Bld) [#/Vol] 3.83 10*6/uL Low [facility] WBC (Bld) [#/Vol] 9.32 10*3/uL [facility] CBC WITH AUTO DIFFERENTIALon 02-18-2025 AUTO NRBC 0.0 % Normal [facility] Comment on above: Performed By: #### L [id number] ####[facility] LAB [address] [place], [place] [address] Maurice Coello M.D. [id number] AUTO NRBC ABS COUNT 0.00 K/mcL Normal 0.00-0.00 [facility] Comment on above: Performed By: #### L [id number] ####[facility] LAB [address] [address] Maurice Coello M.D. [id number] BASOPHILS ABSOLUTE COUNT 0.03 K/mcL Normal 0.00-0.30 [facility] Comment on above: Performed By: #### L [id number] #### LAB [address] [address] Maurice Coello M.D. [id number] Basophils/100 WBC (Bld) 0.3 % Normal [facility] Comment on above: Performed By: #### L [id number] #### LAB [address] [address] Maurice Coello M.D. [id number] Eosinophils (Bld) [#/Vol] 0.09 10*3/uL Normal 0.00-0.50 [facility] Comment on above: Performed By: #### L [id number] #### LAB [address] [place] [address] Maurice Coello M.D. [id number] Eosinophils/100 WBC (Bld) 1.0 % Normal [facility] Comment on above: Performed By: #### L [id number] #### LAB [address] [place] [address] Maurice Coello M.D. [id number] Erythrocyte distribution width (RBC) [Ratio] 14.2 % Normal 11.6-14.8 [facility] Comment on above: Performed By: #### L [id number] #### LAB [address] [place] [address] Maurice Coello M.D. [id number] Hematocrit (Bld) [Volume fraction] 33.1 % Low 36.0-46.0 [facility] Comment on above: Performed By: #### L [id number] #### LAB [address] [place] [address] Maurice Coello M.D. [id number] Hemoglobin (Bld) [Mass/Vol] 9.9 g/dL Low 12.0-16.0 [facility] Comment on above: Performed By: #### L [id number] #### LAB [address] [address] Maurice Coello M.D. [id number] IG ABSOLUTE 0.16 K/mcL Normal 0.00-0.30 [facility] Comment on above: Performed By: #### L [id number] #### LAB [address] [place] [address] Maurice Coello M.D. [id number] IG PERCENT 1.70 % [facility] Comment on above: Result Comment: The IG parameter is the percentage of metamyelocytes, myelocytes and promyelocytes. An immature granulocyte count (IG) of 1% or more suggests the possibility of infection, an IG count of 3% is very likely related to an infection. Performed By: #### L [id number] #### LAB [address] [address] Maurice Coello M.D. [id number] Lymphocytes (Bld) [#/Vol] 1.29 10*3/uL Normal 0.90-4.00 [facility] Comment on above: Performed By: #### L [id number] #### LAB [address] [address] Maurice Coello M.D. [id number] Lymphocytes/100 WBC (Bld) 13.8 % [facility] Comment on above: Performed By: #### L [id number] #### LAB [address] [address] Maurice Coello M.D. [id number] MCH (RBC) [Entitic mass] 25.8 pg Low 26.0-34.0 [facility] Comment on above: Performed By: #### L [id number] #### LAB [address] [address] Maurice Coello M.D. [id number] MCV (RBC) [Entitic vol] 86.4 fL Normal 80.0-100.0 [facility] Comment on above: Performed By: #### L [id number] #### LAB [address] [place] [address] Maurice Coello M.D. [id number] MEAN CORPUSCULAR HEMOGLOBIN CONC 29.9 g/dL Low 31.0-37.0 [facility] Comment on above: Performed By: #### L [id number] #### LAB [address] [address] Maurice Coello M.D. [id number] Monocytes (Bld) [#/Vol] 0.60 10*3/uL Normal 0.30-0.90 [facility] Comment on above: Performed By: #### L [id number] ####[facility] LAB [address] [address] Maurice Coello M.D. [id number] Monocytes/100 WBC (Bld) 6.4 % Normal [facility] Comment on above: Performed By: #### L [id number] #### LAB [address] [address] Maurice Coello M.D. [id number] NEUTROPHILS ABSOLUTE COUNT 7.15 K/mcL High 1.70-7.00 [facility] Comment on above: Performed By: #### L [id number] #### LAB [address] [address] Maurice Coello M.D. [id number] Neutrophils/100 WBC (Bld) 76.8 % Normal [facility] Comment on above: Performed By: #### L [id number] #### LAB [address] [place] [address] Maurice Coello M.D. [id number] Platelet mean volume (Bld) [Entitic vol] 9.9 fL Normal 9.4-12.4 [facility] Comment on above: Performed By: #### L [id number] #### LAB [address] [place] [address] Maurice Coello M.D. [id number] Platelets (Bld) [#/Vol] 277 10*3/uL Normal 150-400 [facility] Comment on above: Performed By: #### L [id number] #### LAB [address] [place] [address] Maurice Coello M.D. [id number] RBC (Bld) [#/Vol] 3.83 10*6/uL Low 4.00-5.20 [facility] Comment on above: Performed By: #### L [id number] ####[facility] LAB [address] [place], [place] [address] Maurice Coello M.D. [id number] WBC (Bld) [#/Vol] 9.32 10*3/uL Normal 4.50-11.00 [facility] Comment on above: Performed By: #### L [id number] ####[facility] LAB [address] [address] Maurice Coello M.D. [id number] CK [Catalytic activity/Vol]o n 02-18-2025 Interpretation and review of laboratory results Abnormal [facility] CPKon 02-18-2025 CPK 539 U/L High 40-170 [facility] Comment on above: Performed By: #### 4 7395 #### [facility] LAB [address] [address] Maurice Coello M.D. [id number] CPK NO MBon 02-18-2025 CK [Catalytic activity/Vol] 539 U/L High 40 - 170 U/L [facility] EKGon 02-18-2025 [facility] Glucose (Bld) [Mass/Vol]on 0 02-18-2025 Glucose [Mass/Vol] 115 mg/dL High 65 - 99 mg/dL [facility] Interpretation and review of laboratory results Abnormal [facility] POC GLUCOSE - RALSon 025 Glucose [Mass/Vol] 115 mg/dL High 65-99 [facility] Comment on above: Performed By: #### 4 6932 #### [facility] LAB [address] [address] Maurice Coello M.D. [id number] BASIC METABOLIC PANELon - Anion gap [Moles/Vol] 13 mmol/L Normal 10-20 [facility] Comment on above: Order Comment: Injur y/Trauma or Illness?:Illness/Other How long have you had these symptoms (acute/chronic)?:Acute Reason for exam?:sob. Hx of COPD History of cancer?:unknown Surgeries, chemotherapy, or radiation?:cholecystectomy, hysterectomy, oophrectomy, left knee replacement Type of Exam?:Initial Additional signs and symptoms?:. Performed By: #### 4 6109 #### LAB [address] [address] Maurice Coello M.D. [id number] Calcium [Mass/Vol] 8.5 mg/dL Normal 8.4-10.2 [facility] Comment on above: Order Comment: Injur y/Trauma or Illness?:Illness/Other How long have you had these symptoms (acute/chronic)?:Acute Reason for exam?:sob. Hx of COPD History of cancer?:unknown Surgeries, chemotherapy, or radiation?:cholecystectomy, hysterectomy, oophrectomy, left knee replacement Type of Exam?:Initial Additional signs and symptoms?:. Performed By: #### 4 6178 #### LAB [address] [place] [address] Maurice Coello M.D. [id number] Chloride [Moles/Vol] 104 mmol/L Normal 98-108 [facility] Comment on above: Order Comment: Injur y/Trauma or Illness?:Illness/Other How long have you had these symptoms (acute/chronic)?:Acute Reason for exam?:sob. Hx of COPD History of cancer?:unknown Surgeries, chemotherapy, or radiation?:cholecystectomy, hysterectomy, oophrectomy, left knee replacement Type of Exam?:Initial Additional signs and symptoms?:. Performed By: #### 4 6121 #### LAB [address] [address] Maurice Coello M.D. [id number] Creatinine [Mass/Vol] 1.48 mg/dL High 0.60-1.10 [facility] Comment on above: Order Comment: Injur y/Trauma or Illness?:Illness/Other How long have you had these symptoms (acute/chronic)?:Acute Reason for exam?:sob. Hx of COPD History of cancer?:unknown Surgeries, chemotherapy, or radiation?:cholecystectomy, hysterectomy, oophrectomy, left knee replacement Type of Exam?:Initial Additional signs and symptoms?:. Performed By: #### 4 6135 #### LAB [address] [address] Maurice Coello M.D. [id number] EGFR 39 mL/min/1.73 m2 Low >=60 [facility] Comment on above: Order Comment: Injur y/Trauma or Illness?:Illness/Other How long have you had these symptoms (acute/chronic)?:Acute Reason for exam?:sob. Hx of COPD History of cancer?:unknown Surgeries, chemotherapy, or radiation?:cholecystectomy, hysterectomy, oophrectomy, left knee replacement Type of Exam?:Initial Additional signs and symptoms?:. Result Comment: Ericka mated GFR was calculated using the 2020 CKD-EPI creatinine equation. Performed By: #### 4 6199 #### LAB [address] [address] Maurice Coello M.D. [id number] Glucose [Mass/Vol] 83 mg/dL Normal 65-99 [facility] Comment on above: Order Comment: Injur y/Trauma or Illness?:Illness/Other How long have you had these symptoms (acute/chronic)?:Acute Reason for exam?:sob. Hx of COPD History of cancer?:unknown Surgeries, chemotherapy, or radiation?:cholecystectomy, hysterectomy, oophrectomy, left knee replacement Type of Exam?:Initial Additional signs and symptoms?:. Performed By: #### 4 6164 #### LAB [address] [address] Maurice Coello M.D. [id number] HCO3 (Bld) [Moles/Vol] 25 mmol/L Normal 21-32 [facility] Comment on above: Order Comment: Injur y/Trauma or Illness?:Illness/Other How long have you had these symptoms (acute/chronic)?:Acute Reason for exam?:sob. Hx of COPD History of cancer?:unknown Surgeries, chemotherapy, or radiation?:cholecystectomy, hysterectomy, oophrectomy, left knee replacement Type of Exam?:Initial Additional signs and symptoms?:. Performed By: #### 4 6179 #### LAB [address] [address] Maurice Coello M.D. [id number] Potassium [Moles/Vol] 3.7 mmol/L Normal 3.5-5.1 [facility] Comment on above: Order Comment: Injur y/Trauma or Illness?:Illness/Other How long have you had these symptoms (acute/chronic)?:Acute Reason for exam?:sob. Hx of COPD History of cancer?:unknown Surgeries, chemotherapy, or radiation?:cholecystectomy, hysterectomy, oophrectomy, left knee replacement Type of Exam?:Initial Additional signs and symptoms?:. Performed By: #### 4 6124 #### LAB [address] [address] Maurice Coello M.D. [id number] Sodium [Moles/Vol] 138 mmol/L Normal 135-145 [facility] Comment on above: Order Comment: Injur y/Trauma or Illness?:Illness/Other How long have you had these symptoms (acute/chronic)?:Acute Reason for exam?:sob. Hx of COPD History of cancer?:unknown Surgeries, chemotherapy, or radiation?:cholecystectomy, hysterectomy, oophrectomy, left knee replacement Type of Exam?:Initial Additional signs and symptoms?:. Performed By: #### 4 6181 #### LAB [address] [address] Maurice Coello M.D. [id number] Urea nitrogen [Mass/Vol] 17 mg/dL Normal 8-25 [facility] Comment on above: Order Comment: Injur y/Trauma or Illness?:Illness/Other How long have you had these symptoms (acute/chronic)?:Acute Reason for exam?:sob. Hx of COPD History of cancer?:unknown Surgeries, chemotherapy, or radiation?:cholecystectomy, hysterectomy, oophrectomy, left knee replacement Type of Exam?:Initial Additional signs and symptoms?:. Performed By: #### 4 6113 #### LAB [address] [address] Maurice Coello M.D. [id number] Urea nitrogen/Creatinine [Mass ratio] 11.5 mg/mg Normal 10.0-20.0 [facility] Comment on above: Order Comment: Injur y/Trauma or Illness?:Illness/Other How long have you had these symptoms (acute/chronic)?:Acute Reason for exam?:sob. Hx of COPD History of cancer?:unknown Surgeries, chemotherapy, or radiation?:cholecystectomy, hysterectomy, oophrectomy, left knee replacement Type of Exam?:Initial Additional signs and symptoms?:. Performed By: #### 4 6124 ####[facility] [address] [place], [place] [address] Maurice Coello M.D. [id number] Basic metabolic 2000 panelon 02-17-2025 Anion gap [Moles/Vol] 13 mmol/L 10 - 2 0 mmol/L [facility] Calcium [Mass/Vol] 8.5 mg/dL 8.4 - 10. 2 mg/dL [facility] Chloride [Moles/Vol] 104 mmol/L 98 - 10 8 mmol/L [facility] Creatinine [Mass/Vol] 1.48 mg/dL High 0.60 - 1.20 mg/dL [facility] GFR/1.73 sq M.predicted CKD-EPI (S/P/Bld) [Vol rate/Area] 39 Low - PINF [facility] Comment on above: Estimated GFR was ca lculated using the 2020 CKD-EPI creatinine equation. Glucose [Mass/Vol] 83 mg/dL 65 - 99 mg/dL [facility] HCO3 [Moles/Vol] 25 mmol/L 21 - 32 mmol/L [facility] Potassium [Moles/Vol] 3.7 mmol/L 3.5 - 5.1 mmol/L [facility] Sodium [Moles/Vol] 138 mmol/L 135 - 145 mmol/L [facility] Urea nitrogen [Mass/Vol] 17 mg/dL 8 - 25 mg/dL [facility] Urea nitrogen/Creatinine [Mass ratio] 11.5 mg/mg 10.0 - 20.0 [facility] has implemented the eGFR calculation approach that does not have a coefficient for race that conforms to the NKF-ASN Task Force Recommendations. [facility] CBC Auto Differentialon 02-04 Basophils (Bld) [#/Vol] 0.04 10*3/uL [facility] Basophils/100 WBC (Bld) 0.5 % [facility] Eosinophils (Bld) [#/Vol] 0.06 10*3/uL [facility] Eosinophils/100 WBC (Bld) 0.8 % [facility] Erythrocyte distribution width (RBC) [Entitic vol] 14.1 % 11.6 - 14.8 % [facility] Hematocrit (Bld) [Volume fraction] 31.4 % Low 36.0 - 46.0 % [facility] Hemoglobin (Bld) [Mass/Vol] 9.3 g/dL Low 12.0 - 16.0 g/dL [facility] Immature granulocytes (Bld) [#/Vol] 0.13 10*3/uL [facility] Immature granulocytes/100 WBC (Bld) 1.7 % [facility] Comment on above: The IG parameter is the percentage of metamyelocytes, myelocytes and promyelocytes. An immature granulocyte count (IG) of 1% or more suggests the possibility of infection, an IG count of 3% is very likely related to an infection. Interpretation and review of laboratory results Abnormal [facility] Lymphocytes (Bld) [#/Vol] 1.54 10*3/uL [facility] Lymphocytes/100 WBC (Bld) 19.6 % [facility] MCH (RBC) [Entitic mass] 25.9 pg Low 26.0 - 34.0 pg [facility] MCHC (RBC) [Mass/Vol] 29.6 g/dL Low 31.0 - 37.0 g/dL [facility] MCV (RBC) [Entitic vol] 87.5 fL 80.0 - 100.0 fL [facility] Monocytes (Bld) [#/Vol] 0.72 10*3/uL [facility] Monocytes/100 WBC (Bld) 9.2 % [facility] Neutrophils (Bld) [#/Vol] 5.35 10*3/uL [facility] Neutrophils/100 WBC (Bld) 68.2 % [facility] Nucleated RBC (Bld) [#/Vol] 0 10*3/uL [facility] Nucleated RBC/100 WBC (Bld) [Ratio] 0 % [facility] Platelet mean volume (Bld) [Entitic vol] 10.2 fL 9.4 - 12.4 fL [facility] Platelets (Bld) [#/Vol] 221 10*3/uL [facility] RBC (Bld) [#/Vol] 3.59 10*6/uL [facility] WBC (Bld) [#/Vol] 7.84 10*3/uL [facility] CBC WITH AUTO DIFFERENTIALon 02-17-2025 AUTO NRBC 0.0 % Normal [facility] Comment on above: Performed By: #### L [id number] #### LAB [address] [address] Maurice Coello M.D. [id number] AUTO NRBC ABS COUNT 0.00 K/mcL Normal 0.00-0.00 [facility] Comment on above: Performed By: #### L [id number] #### LAB [address] [address] Maurice Coello M.D. [id number] BASOPHILS ABSOLUTE COUNT 0.04 K/mcL Normal 0.00-0.30 [facility] Comment on above: Performed By: #### L [id number] #### LAB [address] [address] Maurice Coello M.D. [id number] Basophils/100 WBC (Bld) 0.5 % Normal [facility] Comment on above: Performed By: #### L [id number] #### LAB [address] [address] Maurice Coello M.D. [id number] Eosinophils (Bld) [#/Vol] 0.06 10*3/uL Normal 0.00-0.50 [facility] Comment on above: Performed By: #### L [id number] #### LAB [address] [place] [address] Maurice Coello M.D. [id number] Eosinophils/100 WBC (Bld) 0.8 % Normal [facility] Comment on above: Performed By: #### L [id number] #### LAB [address] [address] Maurice Coello M.D. [id number] Erythrocyte distribution width (RBC) [Ratio] 14.1 % Normal 11.6-14.8 [facility] Comment on above: Performed By: #### L [id number] #### LAB [address] [place] [address] Maurice Coello M.D. [id number] Hematocrit (Bld) [Volume fraction] 31.4 % Low 36.0-46.0 [facility] Comment on above: Performed By: #### L [id number] #### LAB [address] [address] Maurice Coello M.D. [id number] Hemoglobin (Bld) [Mass/Vol] 9.3 g/dL Low 12.0-16.0 [facility] Comment on above: Performed By: #### L [id number] #### LAB [address] [address] Maurice Coello M.D. [id number] IG ABSOLUTE 0.13 K/mcL Normal 0.00-0.30 [facility] Comment on above: Performed By: #### L [id number] #### LAB [address] [address] Maurice Coello M.D. [id number] IG PERCENT 1.70 % Normal [facility] Comment on above: Result Comment: The IG parameter is the percentage of metamyelocytes, myelocytes and promyelocytes. An immature granulocyte count (IG) of 1% or more suggests the possibility of infection, an IG count of 3% is very likely related to an infection. Performed By: #### L [id number] #### LAB [address] [address] Maurice Coello M.D. [id number] Lymphocytes (Bld) [#/Vol] 1.54 10*3/uL Normal 0.90-4.00 [facility] Comment on above: Performed By: #### L [id number] #### LAB [address] [address] Maurice Coello M.D. [id number] Lymphocytes/100 WBC (Bld) 19.6 % Normal [facility] Comment on above: Performed By: #### L [id number] #### LAB [address] [place] [address] Maurice Coello M.D. [id number] MCH (RBC) [Entitic mass] 25.9 pg Low 26.0-34.0 [facility] Comment on above: Performed By: #### L [id number] #### LAB [address] [address] Maurice Coello M.D. [id number] MCV (RBC) [Entitic vol] 87.5 fL Normal 80.0-100.0 [facility] Comment on above: Performed By: #### L [id number] #### LAB [address] [address] Maurice Coello M.D. [id number] MEAN CORPUSCULAR HEMOGLOBIN CONC 29.6 g/dL Low 31.0-37.0 [facility] Comment on above: Performed By: #### L [id number] #### LAB [address] [address] Maurice Coello M.D. [id number] Monocytes (Bld) [#/Vol] 0.72 10*3/uL Normal 0.30-0.90 [facility] Comment on above: Performed By: #### L [id number] #### LAB [address] [address] Maurice Coello M.D. [id number] Monocytes/100 WBC (Bld) 9.2 % Normal [facility] Comment on above: Performed By: #### L [id number] #### LAB [address] [address] Maurice Coello M.D. [id number] NEUTROPHILS ABSOLUTE COUNT 5.35 K/mcL Normal 1.70-7.00 [facility] Comment on above: Performed By: #### L [id number] #### LAB [address] [address] Maurice Coello M.D. [id number] Neutrophils/100 WBC (Bld) 68.2 % Normal [facility] Comment on above: Performed By: #### L [id number] #### LAB [address] [address] Maurice Coello M.D. [id number] Platelet mean volume (Bld) [Entitic vol] 10.2 fL Normal 9.4-12.4 [facility] Comment on above: Performed By: #### L [id number] ####[facility] LAB [address] [address] Maurice Coello M.D. [id number] Platelets (Bld) [#/Vol] 221 10*3/uL Normal 150-400 [facility] Comment on above: Performed By: #### L [id number] ####[facility] LAB [address] [address] Maurice Coello M.D. [id number] RBC (Bld) [#/Vol] 3.59 10*6/uL Low 4.00-5.20 [facility] Comment on above: Performed By: #### L [id number] ####[facility] LAB [address] [address] Maurice Coello M.D. [id number] WBC (Bld) [#/Vol] 7.84 10*3/uL Normal 4.50-11.00 [facility] Comment on above: Performed By: #### L [id number] #### LAB [address] [address] Maurice Coello M.D. [id number] CPKon 02-17-2025 CPK 1606 U/L High 40-170 [facility] Comment on above: Performed By: #### 4 [id number] #### LAB [address] [address] Maurice Coello M.D. [id number] CPK NO MBon 02-17-2025 CK [Catalytic activity/Vol] 1606 U/L High 40 - 170 U/L [facility] Glucose (Bld) [Mass/Vol]on 0 02-17-2025 Glucose [Mass/Vol] 132 mg/dL High 65 - 99 mg[facility] Interpretation and review of laboratory results Abnormal [facility] Glucose [Mass/Vol] 167 mg/dL High 65 - 99 mg/dL [facility] Interpretation and review of laboratory results Abnormal [facility] Glucose [Mass/Vol] 101 mg/dL High 65 - 99 mg/dL [facility] Interpretation and review of laboratory results Abnormal [facility] MAGNESIUM LEVELon 02-17-2025 Magnesium [Mass/Vol] 1.5 mg/dL Low 1.6-2.4 [facility] Comment on above: Performed By: #### 4 [id number] #### LAB [address] [address] Maurice Coello M.D. [id number] Magnesium Levelon 02-17-2025 Magnesium [Mass/Vol] 1.5 mg/dL Low 1.6 - 2 .4 mg/dL [facility] No Panel Informationon 02-17 Interpretation and review of laboratory results Abnormal [facility] POC GLUCOSE - RALSon 025 Glucose [Mass/Vol] 132 mg/dL High [address] [place] [address] Comment on above: Performed By: #### 4 6932 #### LAB [address] [address] Maurice Coello M.D. [id number] Glucose [Mass/Vol] 167 mg/dL High [address] [place] [address] Comment on above: Performed By: #### 4 6932 #### LAB [address] [address] Maurice Coello M.D. [id number] Glucose [Mass/Vol] 101 mg/dL High [address] [place] [address] Comment on above: Performed By: #### 4 6932 #### LAB [address] [address] Maurice Coello M.D. [id number] BASIC METABOLIC PANELon 02-04 Anion gap [Moles/Vol] 13 mmol/L Normal 10-20 [facility] Comment on above: Order Comment: [facility] has implemented the eGFR calculation approach that does not have a coefficient for race that conforms to the NKF-ASN Task Force Recommendations. Performed By: #### 4 6124 ####[facility] LAB [address] [address] Maurice Coello M.D. [id number] Calcium [Mass/Vol] 8.0 mg/dL Low 8.4-10.2 [facility] Comment on above: Order Comment: [facility] has implemented the eGFR calculation approach that does not have a coefficient for race that conforms to the NKF-ASN Task Force Recommendations. Performed By: #### 4 6124 #### LAB [address] [place], [place] [address] Maurice Coello M.D. [id number] Chloride [Moles/Vol] 106 mmol/L Normal 98-108 [facility] Comment on above: Order Comment: [facility] has implemented the eGFR calculation approach that does not have a coefficient for race that conforms to the NKF-ASN Task Force Recommendations. Performed By: #### 4 6124 #### LAB [address] [address] Maurice Coello M.D. [id number] Creatinine [Mass/Vol] 1.28 mg/dL High 0.60-1.10 [facility] Comment on above: Order Comment: [facility] has implemented the eGFR calculation approach that does not have a coefficient for race that conforms to the NKF-ASN Task Force Recommendations. Performed By: #### 4 6124 #### LAB [address] [address] Maurice Coello M.D. [id number] EGFR 46 mL/min/1.73 m2 Low >=60 [facility] Comment on above: Order Comment: [facility] has implemented the eGFR calculation approach that does not have a coefficient for race that conforms to the NKF-ASN Task Force Recommendations. Result Comment: Ericka mated GFR was calculated using the 2020 CKD-EPI creatinine equation. Performed By: #### 4 6124 #### LAB [address] [address] Maurice Coello M.D. [id number] Glucose [Mass/Vol] 128 mg/dL High 65-99 [facility] Comment on above: Order Comment: [facility] has implemented the eGFR calculation approach that does not have a coefficient for race that conforms to the NKF-ASN Task Force Recommendations. Performed By: #### 4 6124 #### LAB [address] [address] Maurice Coello M.D. [id number] HCO3 (Bld) [Moles/Vol] 22 mmol/L Normal 21-32 [facility] Comment on above: Order Comment: [facility] has implemented the eGFR calculation approach that does not have a coefficient for race that conforms to the NKF-ASN Task Force Recommendations. Performed By: #### 4 6124 #### LAB [address] [address] Maurice Coello M.D. [id number] Potassium [Moles/Vol] 3.9 mmol/L Normal 3.5-5.1 [facility] Comment on above: Order Comment: [facility] has implemented the eGFR calculation approach that does not have a coefficient for race that conforms to the NKF-ASN Task Force Recommendations. Performed By: #### 4 6124 #### LAB [address] [address] Maurice Coello M.D. [id number] Sodium [Moles/Vol] 137 mmol/L Normal 135-145 [facility] Comment on above: Order Comment: [facility] has implemented the eGFR calculation approach that does not have a coefficient for race that conforms to the NKF-ASN Task Force Recommendations. Performed By: #### 4 6124 #### LAB [address] [address] Maurice Coello M.D. [id number] Urea nitrogen [Mass/Vol] 15 mg/dL Normal 8-25 [facility] Comment on above: Order Comment: [facility] has implemented the eGFR calculation approach that does not have a coefficient for race that conforms to the NKF-ASN Task Force Recommendations. Performed By: #### 4 6124 #### LAB [address] [address] Maurice Coello M.D. [id number] Urea nitrogen/Creatinine [Mass ratio] 11.7 mg/mg Normal 10.0-20.0 [facility] Comment on above: Order Comment: [facility] has implemented the eGFR calculation approach that does not have a coefficient for race that conforms to the NKF-ASN Task Force Recommendations. Performed By: #### 4 6124 ####[facility] LAB [address] [place] [address] Maurice Coello M.D. [id number] Basic metabolic 2000 panelon 02-16-2025 Anion gap [Moles/Vol] 13 mmol/L 10 - 2 0 mmol/L [facility] Calcium [Mass/Vol] 8 mg/dL Low 8.4 - 10. 2 mg/dL [facility] Chloride [Moles/Vol] 106 mmol/L 98 - 10 8 mmol/L [facility] Creatinine [Mass/Vol] 1.28 mg/dL High 0.60 - 1.20 mg/dL [facility] GFR/1.73 sq M.predicted CKD-EPI (S/P/Bld) [Vol rate/Area] 46 Low - PINF [facility] Comment on above: Estimated GFR was ca lculated using the 2020 CKD-EPI creatinine equation. Glucose [Mass/Vol] 128 mg/dL High 65 - 99 mg/dL [facility] HCO3 [Moles/Vol] 22 mmol/L 21 - 32 mmol/L [facility] Interpretation and review of laboratory results Abnormal [facility] Potassium [Moles/Vol] 3.9 mmol/L 3.5 - 5.1 mmol/L [facility] Sodium [Moles/Vol] 137 mmol/L 135 - 145 mmol/L [facility] Urea nitrogen [Mass/Vol] 15 mg/dL 8 - 25 mg/dL [facility] Urea nitrogen/Creatinine [Mass ratio] 11.7 mg/mg 10.0 - 20.0 [facility] has implemented the eGFR calculation approach that does not have a coefficient for race that conforms to the NKF-ASN Task Force Recommendations. [facility] CBC Auto Differentialon 02-04 Basophils (Bld) [#/Vol] 0.04 10*3/uL [facility] Basophils/100 WBC (Bld) 0.5 % [facility] Eosinophils (Bld) [#/Vol] 0.03 10*3/uL [facility] Eosinophils/100 WBC (Bld) 0.4 % [facility] Erythrocyte distribution width (RBC) [Entitic vol] 13.9 % 11.6 - 14.8 % [facility] Hematocrit (Bld) [Volume fraction] 31.8 % Low 36.0 - 46.0 % [facility] Hemoglobin (Bld) [Mass/Vol] 9.5 g/dL Low 12.0 - 16.0 g/dL [facility] Immature granulocytes (Bld) [#/Vol] 0.06 10*3/uL [facility] Immature granulocytes/100 WBC (Bld) 0.8 % [facility] Comment on above: The IG parameter is the percentage of metamyelocytes, myelocytes and promyelocytes. An immature granulocyte count (IG) of 1% or more suggests the possibility of infection, an IG count of 3% is very likely related to an infection. Interpretation and review of laboratory results Abnormal [facility] Lymphocytes (Bld) [#/Vol] 1.24 10*3/uL [facility] Lymphocytes/100 WBC (Bld) 15.8 % [facility] MCH (RBC) [Entitic mass] 26.2 pg 26.0 - 34.0 pg [facility] MCHC (RBC) [Mass/Vol] 29.9 g/dL Low 31.0 - 37.0 g/dL [facility] MCV (RBC) [Entitic vol] 87.6 fL 80.0 - 100.0 fL [facility] Monocytes (Bld) [#/Vol] 0.61 10*3/uL [facility] Monocytes/100 WBC (Bld) 7.8 % [facility] Neutrophils (Bld) [#/Vol] 5.85 10*3/uL [facility] Neutrophils/100 WBC (Bld) 74.7 % [facility] Nucleated RBC (Bld) [#/Vol] 0 10*3/uL [facility] Nucleated RBC/100 WBC (Bld) [Ratio] 0 % [facility] Platelet mean volume (Bld) [Entitic vol] 9.8 fL 9.4 - 12.4 fL [facility] Platelets (Bld) [#/Vol] 199 10*3/uL [facility] RBC (Bld) [#/Vol] 3.63 10*6/uL Low [facility] WBC (Bld) [#/Vol] 7.83 10*3/uL [facility] CBC WITH AUTO DIFFERENTIALon 02-16-2025 AUTO NRBC 0.0 % Normal [facility] Comment on above: Performed By: #### L [id number] ####[facility] LAB [address] [address] Maurice Coello M.D. [id number] AUTO NRBC ABS COUNT 0.00 K/mcL Normal 0.00-0.00 [facility] Comment on above: Performed By: #### L [id number] #### LAB [address] [address] Maurice Coello M.D. [id number] BASOPHILS ABSOLUTE COUNT 0.04 K/mcL Normal 0.00-0.30 [facility] Comment on above: Performed By: #### L [id number] #### LAB [address] [address] Maurice Coello M.D. [id number] Basophils/100 WBC (Bld) 0.5 % Normal [facility] Comment on above: Performed By: #### L [id number] #### LAB [address] [address] Maurice Coello M.D. [id number] Eosinophils (Bld) [#/Vol] 0.03 10*3/uL Normal 0.00-0.50 [facility] Comment on above: Performed By: #### L [id number] #### LAB [address] [address] Maurice Coello M.D. [id number] Eosinophils/100 WBC (Bld) 0.4 % Normal [facility] Comment on above: Performed By: #### L [id number] #### LAB [address] [address] Maurice Coello M.D. [id number] Erythrocyte distribution width (RBC) [Ratio] 13.9 % Normal 11.6-14.8 [facility] Comment on above: Performed By: #### L [id number] #### LAB [address] [address] Maurice Coello M.D. [id number] Hematocrit (Bld) [Volume fraction] 31.8 % Low 36.0-46.0 [facility] Comment on above: Performed By: #### L [id number] #### LAB [address] [address] Maurice Coello M.D. [id number] Hemoglobin (Bld) [Mass/Vol] 9.5 g/dL Low 12.0-16.0 [facility] Comment on above: Performed By: #### L [id number] #### LAB [address] [address] Maurice Coello M.D. [id number] IG ABSOLUTE 0.06 K/mcL Normal 0.00-0.30 [facility] Comment on above: Performed By: #### L [id number] #### LAB [address] [address] Maurice Coello M.D. [id number] IG PERCENT 0.80 % Normal [facility] Comment on above: Result Comment: The IG parameter is the percentage of metamyelocytes, myelocytes and promyelocytes. An immature granulocyte count (IG) of 1% or more suggests the possibility of infection, an IG count of 3% is very likely related to an infection. Performed By: #### L [id number] #### LAB [address] [address] Maurice Coello M.D. [id number] Lymphocytes (Bld) [#/Vol] 1.24 10*3/uL Normal 0.90-4.00 [facility] Comment on above: Performed By: #### L [id number] #### LAB [address] [address] Maurice Coello M.D. [id number] Lymphocytes/100 WBC (Bld) 15.8 % Normal [facility] Comment on above: Performed By: #### L [id number] #### LAB [address] [address] Maurice Coello M.D. [id number] MCH (RBC) [Entitic mass] 26.2 pg Normal 26.0-34.0 [facility] Comment on above: Performed By: #### L [id number] #### LAB [address] [place] [address] Maurice Coello M.D. [id number] MCV (RBC) [Entitic vol] 87.6 fL Normal 80.0-100.0 [facility] Comment on above: Performed By: #### L [id number] #### LAB [address] [address] Maurice Coello M.D. [id number] MEAN CORPUSCULAR HEMOGLOBIN CONC 29.9 g/dL Low 31.0-37.0 [facility] Comment on above: Performed By: #### L [id number] #### LAB [address] [address] Maurice Coello M.D. [id number] Monocytes (Bld) [#/Vol] 0.61 10*3/uL Normal 0.30-0.90 [facility] Comment on above: Performed By: #### L [id number] #### LAB [address] [address] Maurice Coello M.D. [id number] Monocytes/100 WBC (Bld) 7.8 % Normal [facility] Comment on above: Performed By: #### L [id number] #### LAB [address] [address] Maurice Coello M.D. [id number] NEUTROPHILS ABSOLUTE COUNT 5.85 K/mcL Normal 1.70-7.00 [facility] Comment on above: Performed By: #### L [id number] #### LAB [address] [address] Maurice Coello M.D. [id number] Neutrophils/100 WBC (Bld) 74.7 % Normal [facility] Comment on above: Performed By: #### L [id number] #### LAB [address] [address] Maurice Coello M.D. [id number] Platelet mean volume (Bld) [Entitic vol] 9.8 fL Normal 9.4-12.4 [facility] Comment on above: Performed By: #### L [id number] #### LAB [address] [address] Maurice Coello M.D. [id number] Platelets (Bld) [#/Vol] 199 10*3/uL Normal 150-400 [facility] Comment on above: Performed By: #### L [id number] ####[facility] LAB [address] [place], [place] [address] Maurice Coello M.D. [id number] RBC (Bld) [#/Vol] 3.63 10*6/uL Low 4.00-5.20 [facility] Comment on above: Performed By: #### L [id number] ####[facility] LAB [address] [address] Maurice Coello M.D. [id number] WBC (Bld) [#/Vol] 7.83 10*3/uL Normal 4.50-11.00 [facility] Comment on above: Performed By: #### L [id number] ####[facility] LAB [address] [address] Maurice Coello M.D. [id number] CK [Catalytic activity/Vol]o n 02-16-2025 Interpretation and review of laboratory results Abnormal [facility] Interpretation and review of laboratory results Abnormal [facility] CPKon 02-16-2025 CPK 4535 U/L High 40-170 [facility] Comment on above: Performed By: #### 4 7395 #### [facility] LAB [address] [address] Maurice Coello M.D. [id number] CPK 5003 U/L High 40-170 [facility] Comment on above: Performed By: #### 4 6932 #### [facility] LAB [address] [address] Maurice Coello M.D. [id number] CPK NO MBon 02-16-2025 CK [Catalytic activity/Vol] 4535 U/L High 40 - 170 U/L [facility] CK [Catalytic activity/Vol] 5003 U/L High 40 - 170 U/L [facility] Glucose (Bld) [Mass/Vol]on 0 02-16-2025 Glucose [Mass/Vol] 170 mg/dL High 65 - 99 mg/dL [facility] Interpretation and review of laboratory results Abnormal [facility] Glucose [Mass/Vol] 119 mg/dL High 65 - 99 mg/[facility] Interpretation and review of laboratory results Abnormal [facility] Glucose [Mass/Vol] 109 mg/dL High 65 - 99 mg/dL [facility] Interpretation and review of laboratory results Abnormal [facility] Glucose [Mass/Vol] 126 mg/dL High 65 - 99 mg/dL [facility] Interpretation and review of laboratory results Abnormal [facility] MAGNESIUM LEVELon 02-16-2025 Magnesium [Mass/Vol] 1.6 mg/dL Normal 1.6-2.4 [facility] Comment on above: Performed By: #### 4 6109 #### LAB [address] [place], [place] [address] Maurice Coello M.D. [id number] Magnesium Levelon 02-16-2025 Magnesium [Mass/Vol] 1.6 mg/dL 1.6 - 2 .4 mg/dL [facility] Magnesium [Mass/Vol]on 02-16 Interpretation and review of laboratory results Normal [facility] NT PRO BNPon 02-16-2025 Natriuretic peptide B (Bld) [Mass/Vol] 3770 pg/mL High 0-300 [facility] Comment on above: Order Comment: Pride Study Cut-offsRule In:< /= 50 Years >450 pg/mL51 Years - 75 Years >900 pg/mL76 Years - 99 Years >1800 pg/mLRule Out:All patients <300 pg/mL Performed By: #### 4 7395 #### LAB [address] [place], [place] [address] Maurice Coello M.D. [id number] NT Pro BNPon 02-16-2025 Natriuretic peptide.B prohormone N-Terminal [Mass/Vol] 3770 pg/mL High 0 - 300 pg/mL [facility] Natriuretic peptide.B prohor curly N-Terminal [Mass/Vol]on 02-16-2025 Interpretation and review of laboratory results Abnormal [facility] [employer] Study Cut-offs Rule In: < /= 50 Years >450 pg/mL 51 Years - 75 Years >900 pg/mL 76 Years - 99 Years >1800 pg/mL Rule Out: All patients <300 pg/mL [facility] POC GLUCOSE - Lexa 025 Glucose [Mass/Vol] 170 mg/dL [address] Comment on above: Performed By: #### 4 [id number] #### MH LAB [address] [place] [address] Maurice Coello M.D. [id number] Glucose [Mass/Vol] 119 mg/dL [address] Comment on above: Performed By: #### 4 [id number] #### MH LAB [address] [place] [address] Maurice Coello M.D. [id number] Glucose [Mass/Vol] 109 mg/dL [address] Comment on above: Performed By: #### 4 [id number] #### MH LAB [address] [place] [address] Maurice Coello M.D. [id number] Glucose [Mass/Vol] 126 mg/dL [address] Comment on above: Performed By: #### 4 [id number] #### LAB [address] [place] [address] Maurice Coello M.D. [id number] Repeat EKGon 02-16-2025 Atrial Rate 75 BPM [facility] P Tollhouse 74 degrees [facility] P-R Interval 136 ms [facility] Q-T Interval 424 ms [facility] QRS Duration 104 ms [facility] QTC Calculation (Bezet) 473 ms O [facility] R Tollhouse 20 degrees [facility] T Tollhouse -116 degrees [facility] Ventricular Rate 75 BPM [facility] th Normal sinus rhythm ST & T wave abnormality, consider inferior ischemia ST & T wave abnormality, consider anterolateral ischemia Prolonged QT Abnormal ECG ECG Cart Interpretation see physician note for interpretation. Confirmed by Yajaira Hernandez ([id number]) on 02/16/2025 5:24:09 PM [facility] TROPONIN (ONCE)on 02-16-2025 BASELINE TROPONIN T NG/L 40 ng/L Off scale high <=14 [facility] Comment on above: Performed By: #### 4 6922 #### MH LAB [address] [place], [place] [address] Maurice Coello M.D. [id number] TROPONIN T INTERPRETATION Possible acute cardiac injury. Normal [facility] Comment on above: Performed By: #### 4 6932 #### MH LAB [address] [place], [place] [address] Maurice Coello M.D. [id number] Troponin (Once)on 02-16-2025 Interpretation and review of laboratory results Abnormal [facility] Troponin T 40 ng/L Critically high NINF - 14 ng/L [facility] Troponin T Interpretation Possible acute cardiac injury. 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 Allowing for AP portable technique, the heart size is borderline. There are calcified right upper lobe pulmonary nodules. There is no focal lung consolidation. There is no pneumothorax or pleural effusion. IMPRESSION: Old granulomatous disease. Borderline heart size. No acute consolidation. Workstation ID: [id number] Dictated by: RIVAS KHAN on [place] Feb 16, 2025 4:39:53 PM EDT Transcribed by: RIVAS KHAN on [place] Feb 16, 2025 4:39:53 PM EDT Finalized by: RIVAS KHAN on [place] Feb 16, 2025 4:39:53 PM EDT [facility] Comment on above: Order Comment: Injur y/Trauma or Illness?:Illness/OtherHow long have you had these symptoms (acute/chronic)?:AcuteReason for exam?:sobHistory of cancer?:unknownSurgeries, chemotherapy, or radiation?:cholecystectomy, hysterectomy, oophrectomy, left knee replacementType of Exam?:OngoingAdditional signs and symptoms?:contact iso;ation XR Chest PA and Abdomen APon 02-16-2025 Old granulomatous disease. Borderline heart size. No acute consolidation. 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 Allowing for AP portable technique, the heart size is borderline. There are calcified right upper lobe pulmonary nodules. There is no focal lung consolidation. There is no pneumothorax or pleural effusion. 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 Allowing for AP portable technique, the heart size is borderline. There are calcified right upper lobe pulmonary nodules. There is no focal lung consolidation. There is no pneumothorax or pleural effusion. IMPRESSION: Old granulomatous disease. Borderline heart size. No acute consolidation. Workstation ID: [id number] [facility] Radiology [facility] (narrative[facility] PA and Abdomen APOr dered By: Rivas Khan on 02-16-2025 [facility] Work Phone: BASIC METABOLIC PANELon 02-04 Anion gap [Moles/Vol] 15 mmol/L Normal 10-20 [facility] Comment on above: Order Comment: Pride Study Cut-offs Rule In: < /= 50 Years >450 pg/mL 51 Years - 75 Years >900 pg/mL 76 Years - 99 Years >1800 pg/mL Rule Out: All patients <300 pg/mL Performed By: #### 4 [id number] #### MH LAB [address] [place], [place] [address] Maurice Coello M.D. [id number] Calcium [Mass/Vol] 7.9 mg/dL Low 8.4-10.2 [facility] Comment on above: Order Comment: Pride Study Cut-offs Rule In: < /= 50 Years >450 pg/mL 51 Years - 75 Years >900 pg/mL 76 Years - 99 Years >1800 pg/mL Rule Out: All patients <300 pg/mL Performed By: #### 4 7395 #### LAB [address] [place], [place] [address] Maurice Coello M.D. [id number] Chloride [Moles/Vol] 98 mmol/L Normal 98-108 [facility] Comment on above: Order Comment: Pride Study Cut-offs Rule In: < /= 50 Years >450 pg/mL 51 Years - 75 Years >900 pg/mL 76 Years - 99 Years >1800 pg/mL Rule Out: All patients <300 pg/mL Performed By: #### 4 [id number] #### LAB [address] [place], [place] [address] Maurice Coello M.D. [id number] Creatinine [Mass/Vol] 1.54 mg/dL High 0.60-1.10 [facility] Comment on above: Order Comment: Pride Study Cut-offs Rule In: < /= 50 Years >450 pg/mL 51 Years - 75 Years >900 pg/mL 76 Years - 99 Years >1800 pg/mL Rule Out: All patients <300 pg/mL Performed By: #### 4 7395 #### LAB [address] [place], [place] [address] Maurice Coello M.D. [id number] EGFR 37 mL/min/1.73 m2 Low >=60 [facility] Comment on above: Order Comment: Pride Study Cut-offs Rule In: < /= 50 Years >450 pg/mL 51 Years - 75 Years >900 pg/mL 76 Years - 99 Years >1800 pg/mL Rule Out: All patients <300 pg/mL Result Comment: Ericka mated GFR was calculated using the 2020 CKD-EPI creatinine equation. Performed By: #### 4 [id number] #### LAB [address] [place], [place] [address] Maurice Coello M.D. [id number] Glucose [Mass/Vol] 137 mg/dL High 65-99 [facility] Comment on above: Order Comment: Pride Study Cut-offs Rule In: < /= 50 Years >450 pg/mL 51 Years - 75 Years >900 pg/mL 76 Years - 99 Years >1800 pg/mL Rule Out: All patients <300 pg/mL Performed By: #### 4 [id number] #### LAB [address] [place], [place] [address] Maurice Coello M.D. [id number] HCO3 (Bld) [Moles/Vol] 24 mmol/L Normal 21-32 [facility] Comment on above: Order Comment: Pride Study Cut-offs Rule In: < /= 50 Years >450 pg/mL 51 Years - 75 Years >900 pg/mL 76 Years - 99 Years >1800 pg/mL Rule Out: All patients <300 pg/mL Performed By: #### 4 [id number] #### LAB [address] [place], [place] [address] Maurice Coello M.D. [id number] Potassium [Moles/Vol] 3.7 mmol/L Normal 3.5-5.1 [facility] Comment on above: Order Comment: Pride Study Cut-offs Rule In: < /= 50 Years >450 pg/mL 51 Years - 75 Years >900 pg/mL 76 Years - 99 Years >1800 pg/mL Rule Out: All patients <300 pg/mL Performed By: #### 4 [id number] #### LAB [address] [place], [place] [address] Maurice Coello M.D. [id number] Sodium [Moles/Vol] 133 mmol/L Low 135-145 [facility] Comment on above: Order Comment: Pride Study Cut-offs Rule In: < /= 50 Years >450 pg/mL 51 Years - 75 Years >900 pg/mL 76 Years - 99 Years >1800 pg/mL Rule Out: All patients <300 pg/mL Performed By: #### 4 7395 #### LAB [address] [place], [place] [address] Maurice Coello M.D. [id number] Urea nitrogen [Mass/Vol] 23 mg/dL Normal 8-25 [facility] Comment on above: Order Comment: Pride Study Cut-offs Rule In: < /= 50 Years >450 pg/mL 51 Years - 75 Years >900 pg/mL 76 Years - 99 Years >1800 pg/mL Rule Out: All patients <300 pg/mL Performed By: #### 4 7395 #### LAB [address] [place], [place] [address] Maurice Coello M.D. [id number] Urea nitrogen/Creatinine [Mass ratio] 14.9 mg/mg Normal 10.0-20.0 [facility] Comment on above: Order Comment: Pride Study Cut-offs Rule In: < /= 50 Years >450 pg/mL 51 Years - 75 Years >900 pg/mL 76 Years - 99 Years >1800 pg/mL Rule Out: All patients <300 pg/mL Performed By: #### 4 [id number] #### MH LAB [address] [place] [address] Maurice Coello M.D. [id number] Bacteria identified Aer cx N om (Unsp spec)Ordered By: Amalia Kendall on 02-15-2025 [facility] Basic metabolic 2000 panelOr dered By: Alea Joseph on 02-15-2025 Anion gap [Moles/Vol] 15 mmol/L 10 - 2 0 mmol/L [facility] Calcium [Mass/Vol] 7.9 mg/dL Low 8.4 - 10. 2 mg/dL [facility] Chloride [Moles/Vol] 98 mmol/L 98 - 10 8 mmol/L [facility] Creatinine [Mass/Vol] 1.54 mg/dL High 0.60 - 1.20 mg/dL [facility] GFR/1.73 sq M.predicted CKD-EPI (S/P/Bld) [Vol rate/Area] 37 Low - PINF [facility] Comment on above: Estimated GFR was ca lculated using the 2020 CKD-EPI creatinine equation. Glucose [Mass/Vol] 137 mg/dL High 65 - 99 mg/dL [facility] HCO3 [Moles/Vol] 24 mmol/L 21 - 32 mmol/L [facility] Interpretation and review of laboratory results Abnormal [facility] Potassium [Moles/Vol] 3.7 mmol/L 3.5 - 5.1 mmol/L [facility] Sodium [Moles/Vol] 133 mmol/L Low 135 - 145 mmol/L [facility] Urea nitrogen [Mass/Vol] 23 mg/dL 8 - 25 mg/dL [facility] Urea nitrogen/Creatinine [Mass ratio] 14.9 mg/mg 10.0 - 20.0 [facility] has implemented the eGFR calculation approach that does not have a coefficient for race that conforms to the NKF-ASN Task Force Recommendations. [facility] CBC Auto Differentialon 02-04 Basophils (Bld) [#/Vol] 0.02 10*3/uL [facility] Basophils/100 WBC (Bld) 0.2 % [facility] Eosinophils (Bld) [#/Vol] 0.05 10*3/uL [facility] Eosinophils/100 WBC (Bld) 0.5 % [facility] Erythrocyte distribution width (RBC) [Entitic vol] 13.8 % 11.6 - 14.8 % [facility] Hematocrit (Bld) [Volume fraction] 31.4 % Low 36.0 - 46.0 % [facility] Hemoglobin (Bld) [Mass/Vol] 9.3 g/dL Low 12.0 - 16.0 g/dL [facility] Immature granulocytes (Bld) [#/Vol] 0.06 10*3/uL [facility] Immature granulocytes/100 WBC (Bld) 0.6 % [facility] Comment on above: The IG parameter is the percentage of metamyelocytes, myelocytes and promyelocytes. An immature granulocyte count (IG) of 1% or more suggests the possibility of infection, an IG count of 3% is very likely related to an infection. Interpretation and review of laboratory results Abnormal [facility] Lymphocytes (Bld) [#/Vol] 1.33 10*3/uL [facility] Lymphocytes/100 WBC (Bld) 12.3 % [facility] MCH (RBC) [Entitic mass] 25.8 pg Low 26.0 - 34.0 pg [facility] MCHC (RBC) [Mass/Vol] 29.6 g/dL Low 31.0 - 37.0 g/dL [facility] MCV (RBC) [Entitic vol] 87.2 fL 80.0 - 100.0 fL [facility] Monocytes (Bld) [#/Vol] 0.77 10*3/uL [facility] Monocytes/100 WBC (Bld) 7.1 % [facility] Neutrophils (Bld) [#/Vol] 8.55 10*3/uL High [facility] Neutrophils/100 WBC (Bld) 79.3 % [facility] Nucleated RBC (Bld) [#/Vol] 0 10*3/uL [facility] Nucleated RBC/100 WBC (Bld) [Ratio] 0 % [facility] Platelet mean volume (Bld) [Entitic vol] 10.1 fL 9.4 - 12.4 fL [facility] Platelets (Bld) [#/Vol] 233 10*3/uL [facility] RBC (Bld) [#/Vol] 3.6 10*6/uL Low [facility] alth WBC (Bld) [#/Vol] 10.78 10*3/uL [facility] CBC WITH AUTO DIFFERENTIALon 02-15-2025 AUTO NRBC 0.0 % Normal [facility] Comment on above: Performed By: #### L [id number] #### LAB [address] [place] [address] Maurice Coello M.D. [id number] AUTO NRBC ABS COUNT 0.00 K/mcL Normal 0.00-0.00 [facility] Comment on above: Performed By: #### L [id number] #### LAB [address] [place] [address] Maurice Coello M.D. [id number] BASOPHILS ABSOLUTE COUNT 0.02 K/mcL Normal 0.00-0.30 [facility] Comment on above: Performed By: #### L [id number] #### LAB [address] [place] [address] Maurice Coello M.D. [id number] Basophils/100 WBC (Bld) 0.2 % Normal [facility] Comment on above: Performed By: #### L [id number] #### LAB [address] [place] [address] Maurice Coello M.D. [id number] Eosinophils (Bld) [#/Vol] 0.05 10*3/uL Normal 0.00-0.50 [facility] Comment on above: Performed By: #### L [id number] #### LAB [address] [place] [address] Maurice Coello M.D. [id number] Eosinophils/100 WBC (Bld) 0.5 % Normal [facility] Comment on above: Performed By: #### L [id number] #### LAB [address] [place] [address] Maurice Coello M.D. [id number] Erythrocyte distribution width (RBC) [Ratio] 13.8 % Normal 11.6-14.8 [facility] Comment on above: Performed By: #### L [id number] #### LAB [address] [place] [address] Maurice Coello M.D. [id number] Hematocrit (Bld) [Volume fraction] 31.4 % Low 36.0-46.0 [facility] Comment on above: Performed By: #### L [id number] #### LAB [address] [place] [address] Maurice Coello M.D. [id number] Hemoglobin (Bld) [Mass/Vol] 9.3 g/dL Low 12.0-16.0 [facility] Comment on above: Performed By: #### L [id number] #### LAB [address] [place] [address] Maurice Coello M.D. [id number] IG ABSOLUTE 0.06 K/mcL Normal 0.00-0.30 [facility] Comment on above: Performed By: #### L [id number] #### LAB [address] [place] [address] Maurice Coello M.D. [id number] IG PERCENT 0.60 % [facility] Comment on above: Result Comment: The IG parameter is the percentage of metamyelocytes, myelocytes and promyelocytes. An immature granulocyte count (IG) of 1% or more suggests the possibility of infection, an IG count of 3% is very likely related to an infection. Performed By: #### L [id number] #### LAB [address] [place] [address] Maurice Coello M.D. [id number] Lymphocytes (Bld) [#/Vol] 1.33 10*3/uL Normal 0.90-4.00 [facility] Comment on above: Performed By: #### L [id number] #### LAB [address] [place] [address] Maurice Coello M.D. [id number] Lymphocytes/100 WBC (Bld) 12.3 % Normal [facility] Comment on above: Performed By: #### L [id number] #### LAB [address] [place] [address] Maurice Coello M.D. [id number] MCH (RBC) [Entitic mass] 25.8 pg Low 26.0-34.0 [facility] Comment on above: Performed By: #### L [id number] ####MH LAB [address] [place] [address] Maurice Coello M.D. [id number] MCV (RBC) [Entitic vol] 87.2 fL Normal 80.0-100.0 [facility] Comment on above: Performed By: #### L [id number] #### LAB [address] [place] [address] Maurice Coello M.D. [id number] MEAN CORPUSCULAR HEMOGLOBIN CONC 29.6 g/dL Low 31.0-37.0 [facility] Comment on above: Performed By: #### L [id number] #### LAB [address] [place] [address] Maurice Coello M.D. [id number] Monocytes (Bld) [#/Vol] 0.77 10*3/uL Normal 0.30-0.90 [facility] Comment on above: Performed By: #### L [id number] #### LAB [address] [place] [address] Maurice Coello M.D. [id number] Monocytes/100 WBC (Bld) 7.1 % Normal [facility] Comment on above: Performed By: #### L [id number] #### LAB [address] [place] [address] Maurice Coello M.D. [id number] NEUTROPHILS ABSOLUTE COUNT 8.55 K/mcL High 1.70-7.00 [facility] Comment on above: Performed By: #### L [id number] #### LAB [address] [place] [address] Maurice Coello M.D. [id number] Neutrophils/100 WBC (Bld) 79.3 % Normal [facility] Comment on above: Performed By: #### L [id number] #### LAB [address] [place] [address] Maurice Coello M.D. [id number] Platelet mean volume (Bld) [Entitic vol] 10.1 fL Normal 9.4-12.4 [facility] Comment on above: Performed By: #### L [id number] ####MH LAB [address] [place], [place] [address] Maurice oCello M.D. [id number] Platelets (Bld) [#/Vol] 233 10*3/uL Normal 150-400 [facility] Comment on above: Performed By: #### L [id number] ####MH LAB [address] [place] [address] Maurice Coello M.D. [id number] RBC (Bld) [#/Vol] 3.60 10*6/uL Low 4.00-5.20 [facility] Comment on above: Performed By: #### L [id number] ####MH LAB [address] [place] [address] Maurice Coello M.D. [id number] WBC (Bld) [#/Vol] 10.78 10*3/uL Normal 4.50-11.00 [facility] Comment on above: Performed By: #### L [id number] ####MH LAB [address] [place] [address] Maurice Coello M.D. [id number] CK [Catalytic activity/Vol]o n 02-15-2025 Interpretation and review of laboratory results Abnormal [facility] CPKon 02-15-2025 CPK 82829 U/L High 40-170 [facility] Comment on above: Performed By: #### 4 [id number] #### LAB [address] [place] [address] Maurice Coello M.D. [id number] CPK NO MBon 02-15-2025 CK [Catalytic activity/Vol] 75010 U/L High 40 - 170 U/L [facility] EKG 12-leadon 02-15-2025 Atrial Rate 94 BPM [facility] P Tollhouse 71 degrees [facility] P-R Interval 144 ms [facility] Q-T Interval 330 ms [facility] QRS Duration 90 ms [facility] QTC Calculation (Bezet) 412 ms [facility] R Tollhouse -12 degrees [facility] T Tollhouse 63 degrees [facility] Ventricular Rate 94 BPM [facility] Normal sinus rhythm Normal ECG ECG Cart Interpretation see physician note for interpretation. Confirmed by Yajaira Hernandez ([id number]) on 02/15/2025 12:15:20 PM MUSE [facility] Gastrointestinal pathogens D NA and RNA panel CATRINA+non-probe (Stl)Ordered By: Donna Melendez on 02-15-2025 Adenovirus 40+41 DNA CATRINA+non-probe Ql (Stl) Not detected Not Detected [facility] Astrovirus subtypes 1-8 RNA CATRINA+non-probe Ql (Stl) Not detected Not Detected [facility] C. cayetanensis DNA CATRINA+non-probe Ql (Stl) Not detected Not Detected [facility] C. coli+jejuni+upsaliensis DNA CATRINA+non-probe Ql (Stl) Not detected Not Detected [facility] C. difficile toxin A+B tcdA+tcdB genes CATRINA+non-probe Ql (Stl) Not detected Not Detected [facility] Cryptosporidium sp DNA CATRINA+non-probe Ql (Stl) Not detected Not Detected [facility] E. coli enteroaggregative Clayton plasmid aggR+aatA genes CATRINA+non-probe Ql (Stl) Detected Abnormal Not Detected [facility] Comment on above: EPEC is associated w ith acute or prolonged watery diarrhea with vomiting and fever. EPEC carriage may also be asymptomatic. Treatment with antibiotics is not recommended. E. coli enteropathogenic eae gene CATRINA+non-probe Ql (Stl) Not detected Not Detected [facility] E. coli enterotoxigenic ltA+st1a+st1b genes CATRINA+non-probe Ql (Stl) Not detected Not Detected [facility] E. coli stx1+stx2 genes CATRINA+non-probe Ql (Stl) Not detected Not Detected [facility] E. histolytica DNA CATRINA+non-probe Ql (Stl) Not detected Not Detected [facility] G. lamblia DNA CATRINA+non-probe Ql (Stl) Not detected Not Detected [facility] Interpretation and review of laboratory results Abnormal [facility] Norovirus genogroup I+II RNA CATRINA+non-probe Ql (Stl) Detected Abnormal Not Detected [facility] Comment on above: Highly contagious; [...] CATRINA+non-probe Ql (Stl) Not detected Not Detected [facility] Rotavirus A RNA CATRINA+non-probe Ql (Stl) Not detected Not Detected [facility] S. enterica+bongori DNA CATRINA+non-probe Ql (Stl) Not detected Not Detected [facility] Sapovirus genogroups I+II+IV+V RNA CATRINA+non-probe Ql (Stl) Not detected Not Detected [facility] Shigella species+EIEC invasion plasmid antigen H ipaH gene CATRINA+non-probe Ql (Stl) Not detected Not Detected [facility] V. cholerae DNA CATRINA+non-probe Ql (Stl) Not detected Not Detected [facility] V. cholerae+parahaemolytic us+vulnificus DNA CATRINA+non-probe Ql (Stl) Not detected Not Detected [facility] Y. enterocolitica DNA CATRINA+non-probe Ql (Stl) Not detected Not Detected [facility] Results of PCR testi ng for [...] well as select bacterial infections. [facility] Glucose (Bld) [Mass/Vol]on 0 02-15-2025 Glucose [Mass/Vol] 172 mg/dL High 65 - 99 mg/dL [facility] Interpretation and review of laboratory results Abnormal [facility] Glucose [Mass/Vol] 173 mg/dL High 65 - 99 mg/dL [facility] Interpretation and review of laboratory results Abnormal [facility] Glucose [Mass/Vol] 155 mg/dL High 65 - 99 mg/dL [facility] Interpretation and review of laboratory results Abnormal [facility] Glucose [Mass/Vol] 140 mg/dL High 65 - 99 mg/dL [facility] Interpretation and review of laboratory results Abnormal [facility] Glucose [Mass/Vol] 211 mg/dL High 65 - 99 mg/dL [facility] Interpretation and review of laboratory results Abnormal [facility] MAGNESIUM LEVELon 02-15-2025 Magnesium [Mass/Vol] 1.7 mg/dL Normal 1.6-2.4 [facility] Comment on above: Performed By: #### 4 [id number] ####MH LAB [address] [place], [place] [address] Maurice Coello M.D. [id number] Magnesium Levelon 02-15-2025 Magnesium [Mass/Vol] 1.7 mg/dL 1.6 - 2 .4 mg/dL [facility] Magnesium [Mass/Vol]on 02-15 Interpretation and review of laboratory results Normal [facility] No Panel InformationOrdered By: Alea Joseph on 02-15-2025 [facility] POC GLUCOSE - RALSon 025 Glucose [Mass/Vol] 172 mg/dL High [address] [place] [address] Comment on above: Performed By: #### 4 [id number] #### MH LAB [address] [place] [address] Maurice Coello M.D. [id number] Glucose [Mass/Vol] 173 mg/dL High 67 [place] [address] Comment on above: Performed By: #### 4 6932 #### [facility] [address] [address] Maurice Coello M.D. [id number] Glucose [Mass/Vol] 155 mg/dL [address] Comment on above: Performed By: #### 4 6932 #### [facility] [address] [id number] Maurice Coello M.D. [id number] Glucose [Mass/Vol] 140 mg/dL [address] Comment on above: Performed By: #### 4 6952 #### [facility] [address] [id number] Maurice Coello M.D. [id number] Glucose [Mass/Vol] 211 mg/dL [address] Comment on above: Performed By: #### 4 6945 #### [facility] [address] [place], [place] [address] Maurice Coello M.D. [id number] STOOL/GI PCR PANELon 025 STOOL/GI PCR PANEL [...] Detected SAPOVIRUS Not Detected Abnormal Not Detected [facility] Comment on above: Order Comment: Resul [...] select bacterial infections. Performed By: #### L [id number] ####[facility] [address] [place], [place] [address] Maurice Coello M.D. [id number] Urine Aerobic CultureOrdered By: Amalia Kendall on 02-15-2025 Bacteria identified Aer cx Nom (Unsp spec) < 10,000 CFU/mL of normal urogenital microbiota [facility] BASIC METABOLIC PANELon 02-04 Anion gap [Moles/Vol] 20 mmol/L Normal 10-20 [facility] Comment on above: Order Comment: Injur y/Trauma or Illness?:Illness/Other How long have you had these symptoms (acute/chronic)?:Chronic Reason for exam?:A-fib [facility] TO READ Type of Exam?:Initial Additional signs and symptoms?:n Performed By: #### 4 6124 #### LAB [address] [address] Maurice Coello M.D. [id number] Calcium [Mass/Vol] 9.1 mg/dL Normal 8.4-10.2 [facility] Comment on above: Order Comment: Injur y/Trauma or Illness?:Illness/Other How long have you had these symptoms (acute/chronic)?:Chronic Reason for exam?:A-fib [facility] TO READ Type of Exam?:Initial Additional signs and symptoms?:n Performed By: #### 4 6124 #### LAB [address] [address] Maurice Coello M.D. [id number] Chloride [Moles/Vol] 95 mmol/L Low 98-108 [facility] Comment on above: Order Comment: Injur y/Trauma or Illness?:Illness/Other How long have you had these symptoms (acute/chronic)?:Chronic Reason for exam?:A-fib [facility] TO READ Type of Exam?:Initial Additional signs and symptoms?:n Performed By: #### 4 6124 #### LAB [address] [address] Maurice Coello M.D. [id number] Creatinine [Mass/Vol] 1.78 mg/dL High 0.60-1.10 [facility] Comment on above: Order Comment: Injur y/Trauma or Illness?:Illness/Other How long have you had these symptoms (acute/chronic)?:Chronic Reason for exam?:A-fib [facility] TO READ Type of Exam?:Initial Additional signs and symptoms?:n Performed By: #### 4 6162 #### LAB [address] [address] Maurice Coello M.D. [id number] EGFR 31 mL/min/1.73 m2 Low >=60 [facility] Comment on above: Order Comment: Injur y/Trauma or Illness?:Illness/Other How long have you had these symptoms (acute/chronic)?:Chronic Reason for exam?:A-fib [facility] TO READ Type of Exam?:Initial Additional signs and symptoms?:n Result Comment: Ericka mated GFR was calculated using the 2020 CKD-EPI creatinine equation. Performed By: #### 4 6152 #### LAB [address] [address] Maurice Coello M.D. [id number] Glucose [Mass/Vol] 194 mg/dL High 65-99 [facility] Comment on above: Order Comment: Injur y/Trauma or Illness?:Illness/Other How long have you had these symptoms (acute/chronic)?:Chronic Reason for exam?:A-fib [facility] TO READ Type of Exam?:Initial Additional signs and symptoms?:n Performed By: #### 4 6101 #### LAB [address] [address] Maurice Coello M.D. [id number] HCO3 (Bld) [Moles/Vol] 23 mmol/L Normal 21-32 [facility] Comment on above: Order Comment: Injur y/Trauma or Illness?:Illness/Other How long have you had these symptoms (acute/chronic)?:Chronic Reason for exam?:A-fib [facility] TO READ Type of Exam?:Initial Additional signs and symptoms?:n Performed By: #### 4 6191 #### LAB [address] [address] Maurice Coello M.D. [id number] Potassium [Moles/Vol] 4.9 mmol/L Normal 3.5-5.1 [facility] Comment on above: Order Comment: Injur y/Trauma or Illness?:Illness/Other How long have you had these symptoms (acute/chronic)?:Chronic Reason for exam?:A-fib [facility] TO READ Type of Exam?:Initial Additional signs and symptoms?:n Performed By: #### 4 6124 #### LAB [address] [address] Maurice Coello M.D. [id number] Sodium [Moles/Vol] 133 mmol/L Low 135-145 [facility] Comment on above: Order Comment: Injur y/Trauma or Illness?:Illness/Other How long have you had these symptoms (acute/chronic)?:Chronic Reason for exam?:A-fib [facility] TO READ Type of Exam?:Initial Additional signs and symptoms?:n Performed By: #### 4 6124 #### LAB [address] [address] Maurice Coello M.D. [id number] Urea nitrogen [Mass/Vol] 20 mg/dL Normal 8-25 [facility] Comment on above: Order Comment: Injur y/Trauma or Illness?:Illness/Other How long have you had these symptoms (acute/chronic)?:Chronic Reason for exam?:A-fib [facility] TO READ Type of Exam?:Initial Additional signs and symptoms?:n Performed By: #### 4 6124 #### LAB [address] [address] Maurice Coello M.D. [id number] Urea nitrogen/Creatinine [Mass ratio] 11.2 mg/mg Normal 10.0-20.0 [facility] Comment on above: Order Comment: Injur y/Trauma or Illness?:Illness/Other How long have you had these symptoms (acute/chronic)?:Chronic Reason for exam?:A-fib [facility] TO READ Type of Exam?:Initial Additional signs and symptoms?:n Performed By: #### 4 6124 ####[facility] [address] [address] Maurice Coello M.D. [id number] Basic metabolic 2000 panelon 02-14-2025 Anion gap [Moles/Vol] 20 mmol/L 10 - 2 0 mmol/L [facility] Calcium [Mass/Vol] 9.1 mg/dL 8.4 - 10. 2 mg/dL [facility] Chloride [Moles/Vol] 95 mmol/L Low 98 - 10 8 mmol/L [facility] Creatinine [Mass/Vol] 1.78 mg/dL High 0.60 - 1.20 mg/dL [facility] GFR/1.73 sq M.predicted CKD-EPI (S/P/Bld) [Vol rate/Area] 31 Low - PINF [facility] Comment on above: Estimated GFR was ca lculated using the 2020 CKD-EPI creatinine equation. Glucose [Mass/Vol] 194 mg/dL High 65 - 99 mg/dL [facility]3 [Moles/Vol] 23 mmol/L 21 - 32 mmol/L [facility] Potassium [Moles/Vol] 4.9 mmol/L 3.5 - 5.1 mmol/L [facility] Sodium [Moles/Vol] 133 mmol/L Low 135 - 145 mmol/L [facility] Urea nitrogen [Mass/Vol] 20 mg/dL 8 - 25 mg/dL [facility] Urea nitrogen/Creatinine [Mass ratio] 11.2 mg/mg 10.0 - 20.0 [facility] has implemented the eGFR calculation approach that does not have a coefficient for race that conforms to the NKF-ASN Task Force Recommendations. [facility] CBC Auto Differentialon 02-04 Basophils (Bld) [#/Vol] 0.01 10*3/uL [facility] Basophils/100 WBC (Bld) 0.1 % [facility] Eosinophils (Bld) [#/Vol] 0 10*3/uL [facility] Eosinophils/100 WBC (Bld) 0 % [facility] Erythrocyte distribution width (RBC) [Entitic vol] 13.7 % 11.6 - 14.8 % [facility] Hematocrit (Bld) [Volume fraction] 36.6 % 36.0 - 46.0 % [facility] Hemoglobin (Bld) [Mass/Vol] 11.3 g/dL Low 12.0 - 16.0 g/dL [facility] Immature granulocytes (Bld) [#/Vol] 0.03 10*3/uL [facility] Immature granulocytes/100 WBC (Bld) 0.4 % [facility] Comment on above: The IG parameter is the percentage of metamyelocytes, myelocytes and promyelocytes. An immature granulocyte count (IG) of 1% or more suggests the possibility of infection, an IG count of 3% is very likely related to an infection. Interpretation and review of laboratory results Abnormal [facility] Lymphocytes (Bld) [#/Vol] 0.76 10*3/uL Low [facility] Lymphocytes/100 WBC (Bld) 9.6 % [facility] MCH (RBC) [Entitic mass] 25.7 pg Low 26.0 - 34.0 pg [facility] MCHC (RBC) [Mass/Vol] 30.9 g/dL Low 31.0 - 37.0 g/dL [facility] MCV (RBC) [Entitic vol] 83.4 fL 80.0 - 100.0 fL [facility] Monocytes (Bld) [#/Vol] 0.08 10*3/uL Low [facility] Monocytes/100 WBC (Bld) 1 % [facility] Neutrophils (Bld) [#/Vol] 7.04 10*3/uL High [facility] Neutrophils/100 WBC (Bld) 88.9 % [facility] Nucleated RBC (Bld) [#/Vol] 0 10*3/uL [facility] Nucleated RBC/100 WBC (Bld) [Ratio] 0 % [facility] Platelet mean volume (Bld) [Entitic vol] 10.2 fL 9.4 - 12.4 fL [facility] Platelets (Bld) [#/Vol] 278 10*3/uL [facility] RBC (Bld) [#/Vol] 4.39 10*6/uL [facility] WBC (Bld) [#/Vol] 7.92 10*3/uL [facility] CBC WITH AUTO DIFFERENTIALon 02-14-2025 AUTO NRBC 0.0 % Normal [facility] Comment on above: Performed By: #### 4 6932 #### [facility] [address] [place], [place] [address] Maurice Coello M.D. [id number] AUTO NRBC ABS COUNT 0.00 K/mcL Normal 0.00-0.00 [facility] Comment on above: Performed By: #### 4 9393 #### LAB [address] [address] Maurice Coello M.D. [id number] BASOPHILS ABSOLUTE COUNT 0.01 K/mcL Normal 0.00-0.30 [facility] Comment on above: Performed By: #### 4 4518 #### LAB [address] [address] Maurice Coello M.D. [id number] Basophils/100 WBC (Bld) 0.1 % Normal [facility] Comment on above: Performed By: #### 4 2513 #### LAB [address] [address] Maurice Coello M.D. [id number] Eosinophils (Bld) [#/Vol] 0.00 10*3/uL Normal 0.00-0.50 [facility] Comment on above: Performed By: #### 4 0622 #### LAB [address] [address] Maurice Coello M.D. [id number] Eosinophils/100 WBC (Bld) 0.0 % Normal [facility] Comment on above: Performed By: #### 4 6016 #### LAB [address] [place] [address] Maurice Coello M.D. [id number] Erythrocyte distribution width (RBC) [Ratio] 13.7 % Normal 11.6-14.8 [facility] Comment on above: Performed By: #### 4 3419 #### LAB [address] [address] Maurice Coello M.D. [id number] Hematocrit (Bld) [Volume fraction] 36.6 % Normal 36.0-46.0 [facility] Comment on above: Performed By: #### 4 1848 #### LAB [address] [place] [address] Maurice Coello M.D. [id number] Hemoglobin (Bld) [Mass/Vol] 11.3 g/dL Low 12.0-16.0 [facility] Comment on above: Performed By: #### 4 4302 #### LAB [address] [address] Maurice Coello M.D. [id number] IG ABSOLUTE 0.03 K/mcL Normal 0.00-0.30 [facility] Comment on above: Performed By: #### 4 9838 #### LAB [address] [address] Maurice Coello M.D. [id number] IG PERCENT 0.40 % [facility] Comment on above: Result Comment: The IG parameter is the percentage of metamyelocytes, myelocytes and promyelocytes. An immature granulocyte count (IG) of 1% or more suggests the possibility of infection, an IG count of 3% is very likely related to an infection. Performed By: #### 4 5307 #### LAB [address] [address] Maurice Coello M.D. [id number] Lymphocytes (Bld) [#/Vol] 0.76 10*3/uL Low 0.90-4.00 [facility] Comment on above: Performed By: #### 4 5271 #### LAB [address] [address] Maurice Coello M.D. [id number] Lymphocytes/100 WBC (Bld) 9.6 % [facility] Comment on above: Performed By: #### 4 0461 #### LAB [address] [address] Maurice Coello M.D. [id number] MCH (RBC) [Entitic mass] 25.7 pg Low 26.0-34.0 [facility] Comment on above: Performed By: #### 4 0613 #### LAB [address] [address] Maurice Coello M.D. [id number] MCV (RBC) [Entitic vol] 83.4 fL Normal 80.0-100.0 [facility] Comment on above: Performed By: #### 4 0312 #### LAB [address] [address] Maurice Coello M.D. [id number] MEAN CORPUSCULAR HEMOGLOBIN CONC 30.9 g/dL Low 31.0-37.0 [facility] Comment on above: Performed By: #### 4 6932 #### LAB [address] [address] Maurice Coello M.D. [id number] Monocytes (Bld) [#/Vol] 0.08 10*3/uL Low 0.30-0.90 [facility] Comment on above: Performed By: #### 4 6932 #### LAB [address] [address] Maurice Coello M.D. [id number] Monocytes/100 WBC (Bld) 1.0 % Normal [facility] Comment on above: Performed By: #### 4 6932 #### LAB [address] [address] Maurice Coello M.D. [id number] NEUTROPHILS ABSOLUTE COUNT 7.04 K/mcL High 1.70-7.00 [facility] Comment on above: Performed By: #### 4 6932 #### LAB [address] [address] Maurice Coello M.D. [id number] Neutrophils/100 WBC (Bld) 88.9 % Normal [facility] Comment on above: Performed By: #### 4 6932 #### LAB [address] [address] Maurice Coello M.D. [id number] Platelet mean volume (Bld) [Entitic vol] 10.2 fL Normal 9.4-12.4 [facility] Comment on above: Performed By: #### 4 6916 #### LAB [address] [address] Maurice Coello M.D. [id number] Platelets (Bld) [#/Vol] 278 10*3/uL Normal 150-400 [facility] Comment on above: Performed By: #### 4 6975 #### [facility] [address] [address] Maurice Coello M.D. [id number] RBC (Bld) [#/Vol] 4.39 10*6/uL Normal 4.00-5.20 [facility] Comment on above: Performed By: #### 4 6932 #### [facility] [address] [address] Maurice Coello M.D. [id number] WBC (Bld) [#/Vol] 7.92 10*3/uL Normal 4.50-11.00 [facility] Comment on above: Performed By: #### 4 6932 #### LAB [address] [address] Maurice Coello M.D. [id number] CK [Catalytic activity/Vol]o n 02-14-2025 Interpretation and review of laboratory results Abnormal [facility] CPKon 02-14-2025 CPK 04713 U/L High 40-170 [facility] Comment on above: Performed By: #### 4 8261 #### LAB [address] [address] Maurice Coello M.D. [id number] CPK NO MBon 02-14-2025 CK [Catalytic activity/Vol] 75112 U/L High 40 - 170 U/L [facility] EKGon 02-14-2025 [facility] MAGNESIUM LEVELon 02-14-2025 Magnesium [Mass/Vol] 1.8 mg/dL Normal 1.6-2.4 [facility] Comment on above: Performed By: #### 4 6109 ####[facility] [address] [address] Maurice Coello M.D. [id number] MRSA DNA AMPLIFIED PROBEon 0 02-14-2025 MRSA DNA AMPLIFIED PROBE Negative Normal Not Detected, MRSA NEGATIVE [facility] Comment on above: Performed By: #### 4 8061 ####[facility] [address] [address] Maurice Coello M.D. [id number] MRSA DNA Amplified ProbeOrde red By: Jonatan West on 02-14-2025 MRSA DNA CATRINA+probe Ql (Unsp spec) Negative Not Detected, MRSA NEGATIVE [facility] MRSA DNA CATRINA+probe Ql (Unsp spec)Ordered By: Jonatan West on 02-14-2025 Interpretation and review of laboratory results Normal [facility] Magnesiumon 02-14-2025 Magnesium [Mass/Vol] 1.8 mg/dL 1.6 - 2 .4 mg/dL [facility] Magnesium [Mass/Vol]on 02-14 Interpretation and review of laboratory results Normal [facility] No Panel Informationon 02-14 Interpretation and review of laboratory results Abnormal [facility] TROPONIN X 2 (NOW AND REPEAT IN 2 HOURS)on 02-14-2025 TROPONIN T DELTA % NG/L -23 % Off scale low <20 % of Baseline Troponin [facility] Comment on above: Performed By: #### 4 6932 #### LAB [address] [address] Maurice Coello M.D. [id number] TROPONIN T DELTA CHANGE INTERPRETATION Probable acute injury or myocardial infarction. Normal [facility] Comment on above: Performed By: #### 4 6932 #### LAB [address] [address] Maurice Coello M.D. [id number] TROPONIN T NG/L 76 ng/L Off scale high <=14 [facility] Comment on above: Performed By: #### 4 6932 #### LAB [address] [address] Maurice Coello M.D. [id number] TSHon 02-14-2025 TSH Qn 0.13 m[IU]/L Low 0.27-4.20 [facility] Comment on above: Performed By: #### 4 6613 #### LAB [address] [address] Maurice Coello M.D. [id number] TSH DL <= 0.005 mIU/L Qnon 0 02-14-2025 TSH Qn 0.13 m[IU]/L Low [facility] Troponin x 2 (Now and Repeat in 2 Hours)on 02-14-2025 Interp Troponin T Delta Change Probable acute injury or myocardial infarction. [facility] Interpretation and review of laboratory results Abnormal [facility] Troponin T Delta % -23 % Critically low <20% of Baseline Troponin [facility] Troponin T.cardiac High sensitivity method [Mass/Vol] 76 ng/L Critically high NINF - 14 ng/L [facility] Inter Troponin T Delta Change Probable non-acute cardiac injury or late presentation of acute injury. [facility] Interpretation and review of laboratory results Abnormal [facility] Troponin T Delta % -16 % <20% of Baseline Troponin [facility] Troponin T.cardiac High sensitivity method [Mass/Vol] 83 ng/L Critically high NINF - 14 ng/L [facility] BASIC METABOLIC PANELon 02-04 Anion gap [Moles/Vol] 18 mmol/L Normal 10-20 [facility] Comment on above: Order Comment: Pride Study Cut-offs Rule In: < /= 50 Years >450 pg/mL 51 Years - 75 Years >900 pg/mL 76 Years - 99 Years >1800 pg/mL Rule Out: All patients <300 pg/mL Performed By: #### 4 7395 #### LAB [address] [address] Maurice Coello M.D. [id number] Calcium [Mass/Vol] 9.7 mg/dL Normal 8.4-10.2 [facility] Comment on above: Order Comment: Pride Study Cut-offs Rule In: < /= 50 Years >450 pg/mL 51 Years - 75 Years >900 pg/mL 76 Years - 99 Years >1800 pg/mL Rule Out: All patients <300 pg/mL Performed By: #### 4 7395 #### LAB [address] [address] Maurice Coello M.D. [id number] Chloride [Moles/Vol] 95 mmol/L Low 98-108 [facility] Comment on above: Order Comment: Pride Study Cut-offs Rule In: < /= 50 Years >450 pg/mL 51 Years - 75 Years >900 pg/mL 76 Years - 99 Years >1800 pg/mL Rule Out: All patients <300 pg/mL Performed By: #### 4 7395 #### LAB [address] [place], [place] [address] aMurice Coello M.D. [id number] Creatinine [Mass/Vol] 1.66 mg/dL High 0.60-1.10 [facility] Comment on above: Order Comment: Pride Study Cut-offs Rule In: < /= 50 Years >450 pg/mL 51 Years - 75 Years >900 pg/mL 76 Years - 99 Years >1800 pg/mL Rule Out: All patients <300 pg/mL Performed By: #### 4 7395 #### LAB [address] [address] Maurice Coello M.D. [id number] EGFR 34 mL/min/1.73 m2 Low >=60 [facility] Comment on above: Order Comment: Pride Study Cut-offs Rule In: < /= 50 Years >450 pg/mL 51 Years - 75 Years >900 pg/mL 76 Years - 99 Years >1800 pg/mL Rule Out: All patients <300 pg/mL Result Comment: Ericka mated GFR was calculated using the 2020 CKD-EPI creatinine equation. Performed By: #### 4 7395 #### LAB [address] [address] Maurice Coello M.D. [id number] Glucose [Mass/Vol] 128 mg/dL High 65-99 [facility] Comment on above: Order Comment: Pride Study Cut-offs Rule In: < /= 50 Years >450 pg/mL 51 Years - 75 Years >900 pg/mL 76 Years - 99 Years >1800 pg/mL Rule Out: All patients <300 pg/mL Performed By: #### 4 7395 #### LAB [address] [place], [place] [address] Maurice Coello M.D. [id number] HCO3 (Bld) [Moles/Vol] 27 mmol/L Normal 21-32 [facility] Comment on above: Order Comment: Pride Study Cut-offs Rule In: < /= 50 Years >450 pg/mL 51 Years - 75 Years >900 pg/mL 76 Years - 99 Years >1800 pg/mL Rule Out: All patients <300 pg/mL Performed By: #### 4 7395 #### LAB [address] [place], [place] [address] Maurice Coello M.D. [id number] Potassium [Moles/Vol] 4.5 mmol/L Normal 3.5-5.1 [facility] Comment on above: Order Comment: Pride Study Cut-offs Rule In: < /= 50 Years >450 pg/mL 51 Years - 75 Years >900 pg/mL 76 Years - 99 Years >1800 pg/mL Rule Out: All patients <300 pg/mL Performed By: #### 4 7395 #### LAB [address] [place], [place] [address] Maurice Coello M.D. [id number] Sodium [Moles/Vol] 135 mmol/L Normal 135-145 [facility] Comment on above: Order Comment: Pride Study Cut-offs Rule In: < /= 50 Years >450 pg/mL 51 Years - 75 Years >900 pg/mL 76 Years - 99 Years >1800 pg/mL Rule Out: All patients <300 pg/mL Performed By: #### 4 7395 #### LAB [address] [place], [place] [address] Maurice Coello M.D. [id number] Urea nitrogen [Mass/Vol] 18 mg/dL Normal 8- [facility] Comment on above: Order Comment: Pride Study Cut-offs Rule In: < /= 50 Years >450 pg/mL 51 Years - 75 Years >900 pg/mL 76 Years - 99 Years >1800 pg/mL Rule Out: All patients <300 pg/mL Performed By: #### 4 7395 #### LAB [address] [address] Maurice Coello M.D. [id number] Urea nitrogen/Creatinine [Mass ratio] 10.8 mg/mg Normal 10.0-20.0 [facility] Comment on above: Order Comment: Pride Study Cut-offs Rule In: < /= 50 Years >450 pg/mL 51 Years - 75 Years >900 pg/mL 76 Years - 99 Years >1800 pg/mL Rule Out: All patients <300 pg/mL Performed By: #### 4 7395 #### LAB [address] [address] Maurice Coello M.D. [id number] BLOOD CULTURE AEROBIC/ANAERO BICon 02-13-2025 BLOOD CULTURE AEROBIC/ANAEROBIC BLOOD CULTURE No Growth after 5 days Normal [facility] Comment on above: Performed By: #### 4 4014 #### LAB [address] [place], [place] [address] Maurice Coello M.D. [id number] BNP (NT Pro BNP)on Natriuretic peptide.B prohormone N-Terminal [Mass/Vol] 3931 pg/mL High 0 - 300 pg/mL [facility] Basic metabolic 2000 panelon 02-13-2025 Anion gap [Moles/Vol] 18 mmol/L 10 - 2 0 mmol/L [facility] Calcium [Mass/Vol] 9.7 mg/dL 8.4 - 10. 2 mg/dL [facility] Chloride [Moles/Vol] 95 mmol/L Low 98 - 10 8 mmol/L [facility] Creatinine [Mass/Vol] 1.66 mg/dL High 0.60 - 1.20 mg/dL [facility] GFR/1.73 sq M.predicted CKD-EPI (S/P/Bld) [Vol rate/Area] 34 Low - PINF [facility] Comment on above: Estimated GFR was ca lculated using the 2020 CKD-EPI creatinine equation. Glucose [Mass/Vol] 128 mg/dL High 65 - 99 mg/dL [facility] HCO3 [Moles/Vol] 27 mmol/L 21 - 32 mmol/L [facility] Potassium [Moles/Vol] 4.5 mmol/L 3.5 - 5.1 mmol/L [facility] Sodium [Moles/Vol] 135 mmol/L 135 - 145 mmol/L [facility] Urea nitrogen [Mass/Vol] 18 mg/dL 8 - 25 mg/dL [facility] Urea nitrogen/Creatinine [Mass ratio] 10.8 mg/mg 10.0 - 20.0 [facility] has implemented the eGFR calculation approach that does not have a coefficient for race that conforms to the NKF-ASN Task Force Recommendations. [facility] CBC Auto Differentialon 02-04 Basophils (Bld) [#/Vol] 0.04 10*3/uL [facility] Basophils/100 WBC (Bld) 0.4 % [facility] Eosinophils (Bld) [#/Vol] 0.01 10*3/uL [facility] Eosinophils/100 WBC (Bld) 0.1 % [facility] Erythrocyte distribution width (RBC) [Entitic vol] 13.7 % 11.6 - 14.8 % [facility] Hematocrit (Bld) [Volume fraction] 42.7 % 36.0 - 46.0 % [facility] Hemoglobin (Bld) [Mass/Vol] 13 g/dL 12.0 - 16.0 g/dL [facility] Immature granulocytes (Bld) [#/Vol] 0.05 10*3/uL [facility] Immature granulocytes/100 WBC (Bld) 0.4 % [facility] Comment on above: The IG parameter is the percentage of metamyelocytes, myelocytes and promyelocytes. An immature granulocyte count (IG) of 1% or more suggests the possibility of infection, an IG count of 3% is very likely related to an infection. Interpretation and review of laboratory results Abnormal [facility] Lymphocytes (Bld) [#/Vol] 0.93 10*3/uL [facility] Lymphocytes/100 WBC (Bld) 8.2 % [facility] MCH (RBC) [Entitic mass] 25.5 pg Low 26.0 - 34.0 pg [facility] MCHC (RBC) [Mass/Vol] 30.4 g/dL Low 31.0 - 37.0 g/dL [facility] MCV (RBC) [Entitic vol] 83.7 fL 80.0 - 100.0 fL [facility] Monocytes (Bld) [#/Vol] 0.55 10*3/uL [facility] Monocytes/100 WBC (Bld) 4.8 % [facility] Neutrophils (Bld) [#/Vol] 9.81 10*3/uL High [facility] Neutrophils/100 WBC (Bld) 86.1 % [facility] Nucleated RBC (Bld) [#/Vol] 0 10*3/uL [facility] Nucleated RBC/100 WBC (Bld) [Ratio] 0 % [facility] Platelet mean volume (Bld) [Entitic vol] 10.1 fL 9.4 - 12.4 fL [facility] Platelets (Bld) [#/Vol] 319 10*3/uL [facility] RBC (Bld) [#/Vol] 5.1 10*6/uL [facility] alth WBC (Bld) [#/Vol] 11.39 10*3/uL [facility] CBC WITH AUTO DIFFERENTIALon 02-13-2025 AUTO NRBC 0.0 % Normal [facility] Comment on above: Performed By: #### L [id number] #### LAB [address] [address] Maurice Coello M.D. [id number] AUTO NRBC ABS COUNT 0.00 K/mcL Normal 0.00-0.00 [facility] Comment on above: Performed By: #### L [id number] #### LAB [address] [address] Maurice Coello M.D. [id number] BASOPHILS ABSOLUTE COUNT 0.04 K/mcL Normal 0.00-0.30 [facility] Comment on above: Performed By: #### L [id number] #### LAB [address] [address] Maurice Coello M.D. [id number] Basophils/100 WBC (Bld) 0.4 % Normal [facility] Comment on above: Performed By: #### L [id number] #### LAB [address] [place] [address] Maurice Coello M.D. [id number] Eosinophils (Bld) [#/Vol] 0.01 10*3/uL Normal 0.00-0.50 [facility] Comment on above: Performed By: #### L [id number] #### LAB [address] [place] [address] Maurice Coello M.D. [id number] Eosinophils/100 WBC (Bld) 0.1 % Normal [facility] Comment on above: Performed By: #### L [id number] #### LAB [address] [address] Maurice Coello M.D. [id number] Erythrocyte distribution width (RBC) [Ratio] 13.7 % Normal 11.6-14.8 [facility] Comment on above: Performed By: #### L [id number] #### LAB [address] [address] Maurice Coello M.D. [id number] Hematocrit (Bld) [Volume fraction] 42.7 % Normal 36.0-46.0 [facility] Comment on above: Performed By: #### L [id number] #### LAB [address] [address] Maurice Coello M.D. [id number] Hemoglobin (Bld) [Mass/Vol] 13.0 g/dL Normal 12.0-16.0 [facility] Comment on above: Performed By: #### L [id number] #### LAB [address] [address] Maurice Coello M.D. [id number] IG ABSOLUTE 0.05 K/mcL Normal 0.00-0.30 [facility] Comment on above: Performed By: #### L [id number] #### LAB [address] [address] Maurice Coello M.D. [id number] IG PERCENT 0.40 % [facility] Comment on above: Result Comment: The IG parameter is the percentage of metamyelocytes, myelocytes and promyelocytes. An immature granulocyte count (IG) of 1% or more suggests the possibility of infection, an IG count of 3% is very likely related to an infection. Performed By: #### L [id number] #### LAB [address] [address] Maurice Coello M.D. [id number] Lymphocytes (Bld) [#/Vol] 0.93 10*3/uL Normal 0.90-4.00 [facility] Comment on above: Performed By: #### L [id number] #### LAB [address] [address] Maurice Coello M.D. [id number] Lymphocytes/100 WBC (Bld) 8.2 % [facility] Comment on above: Performed By: #### L [id number] #### LAB [address] [place] [address] Maurice Coello M.D. [id number] MCH (RBC) [Entitic mass] 25.5 pg Low 26.0-34.0 [facility] Comment on above: Performed By: #### L [id number] #### LAB [address] [address] Maurice Coello M.D. [id number] MCV (RBC) [Entitic vol] 83.7 fL Normal 80.0-100.0 [facility] Comment on above: Performed By: #### L [id number] #### LAB [address] [address] Maurice Coello M.D. [id number] MEAN CORPUSCULAR HEMOGLOBIN CONC 30.4 g/dL Low 31.0-37.0 [facility] Comment on above: Performed By: #### L [id number] #### LAB [address] [address] Maurice Coello M.D. [id number] Monocytes (Bld) [#/Vol] 0.55 10*3/uL Normal 0.30-0.90 [facility] Comment on above: Performed By: #### L [id number] #### LAB [address] [address] Maurice Coello M.D. [id number] Monocytes/100 WBC (Bld) 4.8 % Normal [facility] Comment on above: Performed By: #### L [id number] #### LAB [address] [address] Maurice Coello M.D. [id number] NEUTROPHILS ABSOLUTE COUNT 9.81 K/mcL High 1.70-7.00 [facility] Comment on above: Performed By: #### L [id number] #### LAB [address] [address] Maurice Coello M.D. [id number] Neutrophils/100 WBC (Bld) 86.1 % Normal [facility] Comment on above: Performed By: #### L [id number] #### LAB [address] [address] Maurice Coello M.D. [id number] Platelet mean volume (Bld) [Entitic vol] 10.1 fL Normal 9.4-12.4 [facility] Comment on above: Performed By: #### L [id number] ####[facility] LAB [address] [address] Maurice Coello M.D. [id number] Platelets (Bld) [#/Vol] 319 10*3/uL Normal 150-400 [facility] Comment on above: Performed By: #### L [id number] ####[facility] LAB [address] [address] Maurice Coello M.D. [id number] RBC (Bld) [#/Vol] 5.10 10*6/uL Normal 4.00-5.20 [facility] Comment on above: Performed By: #### L [id number] #### LAB [address] [address] Maurice Coello M.D. [id number] WBC (Bld) [#/Vol] 11.39 10*3/uL High 4.50-11.00 [facility] Comment on above: Performed By: #### L [id number] #### LAB [address] [address] Maurice Coello M.D. [id number] CK [Catalytic activity/Vol]o n 02-13-2025 Interpretation and review of laboratory results Abnormal [facility] Manual dilution performed [facility] COVID-19/INFLUENZA A,B MOLEC ULARon 02-13-2025 SARS-CoV-2 (COVID-19) Ab IA Ql SARS-COV-2 (SOFIE) Not Detected INFLUENZA A (SOFIE) Not Detected INFLUENZA B (SOFIE) Not Detected Normal Not Detected [facility] Comment on above: Performed By: #### L [id number] ####[facility] LAB [address] [address] Maurice Coello M.D. [id number] CPKon 02-13-2025 CPK 70734 U/L High 40-170 [facility] Comment on above: Order Comment: Pride Study Cut-offs Rule In: < /= 50 Years >450 pg/mL 51 Years - 75 Years >900 pg/mL 76 Years - 99 Years >1800 pg/mL Rule Out: All patients <300 pg/mL Performed By: #### 4 7395 #### MH LAB [address] [place], [place] [address] Maurice Coello M.D. [id number] CPK NO MBon 02-13-2025 CK [Catalytic activity/Vol] 89376 U/L High 40 - 170 U/L [facility] CT Abdomen and Pelvis W [...] focal consolidation is seen. Workstation ID: [id number] Portable Scores EXAMINATION: CTA PULM ART AND CT ABD [...] changes of the lumbar spine is seen. [employer] Matias Holguin MD - 02/13/2025 EXAMINATION: CTA [...] consolidation is seen. Workstation ID: [id number] [facility] Radiology Study observation (narrative) [facility] CT Abdomen and Pelvis W cont rast IVOrdered By: Matias Adler on 02-13-2025 [facility] Work Phone: CTA PULM ART [...] on MonFeb 13, 2025 7:20:00 PM EDT [facility] Comment on above: Order Comment: Injur y/Trauma or Illness?:Illness/Other How long have you had these symptoms (acute/chronic)?:Acute Reason for exam?:sob, assess for PE and other acute etiologies, diarrhea Type of Exam?:Initial Additional signs and symptoms?:. ED Procedureon 02-13-2025 ED Procedure Repeat EKG Date/Time: 02/13/2025 5:57 PM Performed by: Astrid Sanders DO Authorized by: Astrid Sanders DO Interpreted by ED attending physician Comparison: compared with previous ECG from 02/13/2025 Similar to previous ECG Comparison to previous ECG: This is a repeat EKG. Reassuring without acute dynamic changes, no STEMI. NSR. MI interval 144 ms. QRS 90 ms. BPM: 94 Clinical impression: normal ECG AUTHENTICATED BY ASTRID SANDERS, ON 02/13/2025 19:13:57 Normal [facility] ED Procedure EKG 12-lead Date/Time: 02/13/2025 3:51 PM Performed by: Astrid Sanders DO Authorized by: Astrid Sanders DO Interpreted by ED attending physician Comparison: compared with previous ECG from 09/21/2024 Similar to previous ECG Rhythm: sinus rhythm and sinus tachycardia BPM: 101 Clinical impression: abnormal ECG and sinus tachycardia Comments: Sinus tachycardia. MI interval 140 ms. QRS [address] and T wave abnormality. No STEMI. AUTHENTICATED BY ASTRID SANDERS, ON 02/13/2025 16:34:05 Normal [facility] ED Prov Noteon 02-13-2025 ED Prov Note EMERGENCY MEDICINE PROVIDER NOTE [facility] NAME: Radha Shafer AGE: 64 y.o. 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 No nitroglycerin. Patient states that she was [...] ear normal. Nose: Nose normal. Mouth/Throat: Lips: Hoyt. Mouth: Mucous membranes are moist. Eyes: General: [...] other components within normal limits Narrative: [facility] Laboratory Services has implemented the eGFR calculation approach that does not have a coefficient for race that conforms to the NKF-ASN Task Force Recommendations. NT PRO BNP - Abnormal; Notable for the following components: NT-Pro BNP 3,931 (*) All other components within normal limits Narra (more content not included)... Normal [facility] EKG 12-leadon 02-13-2025 Atrial Rate 101 BPM [facility] P [place]oll[place] 65 degrees [facility] P-R Interval 148 ms [facility] Q-T Interval 368 ms [facility] QRS Duration 82 ms [facility] QTC Calculation (Bezet) 477 ms [facility] R [place] -11 degrees [facility] T [place]oll[place] 65 degrees [facility] Ventricular Rate 101 BPM [facility] Sinus tachycardia Minimal voltage criteria for LVH, may be normal variant ( R in aVL ) Nonspecific ST and T wave abnormality Abnormal ECG ECG Cart Interpretation see physician note for interpretation. Confirmed by Yajaira Hernandez ([id number]) on 02/13/2025 8:27:59 PM MUSE [facility] Influenza virus A and B RNA and SARS-CoV-2 (COVID-19) N gene panel CATRINA+probe (Resp)Ordered By: Christine Dahl on 02-13-2025 FLUAV RNA CATRINA+probe Ql (Unsp spec) Not detected Not Detected [facility] FLUBV RNA CATRINA+probe Ql (Unsp spec) Not detected Not Detected [facility] Interpretation and review of laboratory results Normal [facility] SARS-CoV-2 (COVID-19) RNA CATRINA+probe Ql (Resp) Not detected Not Detected [facility] NT PRO BNPon 02-13-2025 Natriuretic peptide B (Bld) [Mass/Vol] 3931 pg/mL High 0-300 [facility] Comment on above: Order Comment: Pride Study Cut-offs Rule In: < /= 50 Years >450 pg/mL 51 Years - 75 Years >900 pg/mL 76 Years - 99 Years >1800 pg/mL Rule Out: All patients <300 pg/mL Performed By: #### 4 7395 #### LAB [address] [place], [place] [address] Maurice Coello M.D. [id number] Natriuretic peptide.B jovon rawls N-Terminal [Mass/Vol]on 02-13-2025 Pride Study Cut-offs Rule In: < /= 50 Years >450 pg/mL 51 Years - 75 Years >900 pg/mL 76 Years - 99 Years >1800 pg/mL Rule Out: All patients <300 pg/mL [facility] No Panel Informationon 02-13 Extra Tube Hold for add-ons. [facility] Comment on above: Auto resulted. [facility] Interpretation and review of laboratory results Abnormal [facility] POC VENOUS BLOOD GAS PANEL-P ULDamari - Lexa 02-13-2025 BASE EXCESS, VENOUS 3.4 High -2.0-2.0 [facility] Comment on above: Performed By: #### 4 6902 #### LAB [address] [address] Maurice Coello M.D. [id number] CALCIUM IONIZED 4.6 mg/dL Normal 4.5-5.3 [facility] Comment on above: Performed By: #### 4 6980 #### [facility] [address] [address] Maurice Coello M.D. [id number] CARBOXYHEMOGLOBIN 2.0 % of total Hb High <=1.5 [facility] Comment on above: Result Comment: Refe rence Ranges: Suburban Non-smokers: <1.5% Smokers: 1.5-5.0% Heavy Smokers: 5.0-9.0% Performed By: #### 4 6934 #### LAB [address] [address] Maurice Coello M.D. [id number] Chloride [Moles/Vol] 95 mmol/L Low 98-108 [facility] Comment on above: Performed By: #### 4 6992 #### MH LAB [address] [address] Maurice Coello M.D. [id number] FIO2 21 Normal [facility] Comment on above: Performed By: #### 4 6953 #### MH LAB [address] [place], [place] [address] Maurice Coello M.D. [id number] Glucose [Mass/Vol] 124 mg/dL High 65-99 [facility] Comment on above: Performed By: #### 4 6932 #### LAB [address] [address] Maurice Coello M.D. [id number] HCO3 (Bld) [Moles/Vol] 30.7 mmol/L High 24.0-28.0 [facility] Comment on above: Performed By: #### 4 6935 #### LAB [address] [address] Maurice Coello M.D. [id number] Hematocrit (Bld) [Volume fraction] 42.1 % Normal 36.0-46.0 [facility] Comment on above: Performed By: #### 4 6971 #### LAB [address] [address] Maurice Coello M.D. [id number] Hemoglobin (Bld) [Mass/Vol] 13.7 g/dL Normal 12.0-16.0 [facility] Comment on above: Performed By: #### 4 0947 #### LAB [address] [address] Maurice Coello M.D. [id number] LACTIC ACID, WHOLE BLOOD 1.5 mmol/L Normal 0.6-2.0 [facility] Comment on above: Performed By: #### 4 6970 #### LAB [address] [address] Maurice Coello M.D. [id number] METHEMOGLOBIN < Normal 0.0-2.0 [facility] Comment on above: Performed By: #### 4 7234 #### LAB [address] [address] Maurice Coello M.D. [id number] O2HB 53.3 % Normal No established reference range [facility] Comment on above: Performed By: #### 4 5969 #### LAB [address] [address] Maurice Coello M.D. [id number] Oxygen saturation in Blood 54.8 % Normal 40.0-70.0 [facility] Comment on above: Performed By: #### 4 0318 #### MH LAB [address] [address] Maurice Coello M.D. [id number] PCO2 VENOUS 57.1 mm Hg High 41.0-51.0 [facility] Comment on above: Performed By: #### 4 6932 #### [facility] LAB [address] [address] Maurice Coello M.D. [id number] PH VENOUS 7.34 Normal 7.32-7.42 [facility] Comment on above: Performed By: #### 4 6932 #### [facility] LAB [address] [address] Maurice Coello M.D. [id number] PO2 VENOUS 30 mm Hg Normal 25-40 [facility] Comment on above: Performed By: #### 4 6932 #### MH LAB [address] [address] Maurice Coello M.D. [id number] Potassium [Moles/Vol] 4.3 mmol/L Normal 3.5-5.1 [facility] Comment on above: Performed By: #### 4 6932 #### LAB [address] [address] Maurice Coello M.D. [id number] Sodium [Moles/Vol] 137 mmol/L Normal 135-145 [facility] Comment on above: Performed By: #### 4 6932 #### LAB [address] [address] Maurice Coello M.D. [id number] SPECIMEN SOURCE RADIANCE Not specified Normal [facility] Comment on above: Performed By: #### 4 6932 #### MH LAB [address] [address] Maurice Coello M.D. [id number] POC Venous Blood Gas Panel-P [facility] 02-13-2025 Base excess Calc (BldV) [Moles/Vol] 3.4 mmol/L High -2.0 - 2.0 [facility] Calcium.ionized [Mass/Vol] 4.6 mg/dL 4.5 - 5.3 mg/dL [facility] Carboxyhemoglobin (BldA) [Mass fraction] 2 High NINF [facility] Comment on above: Reference Ranges: [place]urban Non-smokers: <1.5% Smokers: 1.5-5.0% Heavy Smokers: 5.0-9.0% CO2 (BldV) [Partial pressure] 57.1 mm[Hg] High [facility] Glucose post fast [Mass/Vol] 124 mg/dL High 65 - 99 mg/dL [facility] Hematocrit (BldA) [Volume fraction] 42.1 % 36.0 - 46.0 % [facility] Inhaled oxygen concentration 21 % [facility] Interpretation and review of laboratory results Abnormal [facility] Lactate [Moles/Vol] 1.5 mmol/L 0.6 - 2. 0 mmol/L [facility] Methemoglobin (BldA) [Mass fraction] % 0.0 - 2.0 % [facility] Oxygen (BldV) [Partial pressure] 30 mm[Hg] [facility] Oxygen saturation in Venous blood 54.8 % 40.0 - 70.0 % [facility] Oxyhemoglobin (BldA) [Mass fraction] 53.3 % -100.0 - 101.0 % [facility] pH (BldV) 7.34 [pH] 7.32 - 7.42 [facility] Specimen source Nom (Unsp spec) Not specified [facility] TROPONIN X 2 (NOW AND REPEAT IN 2 HOURS)on 02-13-2025 TROPONIN T DELTA % NG/L -16 % Normal <20% of Baseline Troponin [facility] Comment on above: Performed By: #### 4 6966 #### LAB [address] [address] Maurice Coello M.D. [id number] TROPONIN T DELTA CHANGE INTERPRETATION Probable non-acute cardiac injury or late presentation of acute injury. Normal [facility] Comment on above: Performed By: #### 4 6917 #### [facility] LAB [address] [address] Maurice Coello M.D. [id number] TROPONIN T NG/L 83 ng/L Off scale high <=14 [facility] Comment on above: Performed By: #### 4 6989 #### LAB [address] [address] Maurice Coello M.D. [id number] BASELINE TROPONIN T NG/L 99 ng/L Off scale high <=14 [facility] Comment on above: Performed By: #### 4 6608 ####[facility] LAB [address] [address] Maurice Coello M.D. [id number] TROPONIN T INTERPRETATION Possible acute cardiac injury. [facility] Comment on above: Performed By: #### 4 6608 ####[facility] LAB [address] [address] Maurice Coello M.D. [id number] BASELINE TROPONIN T NG/L 100 ng/L Off scale high <=14 [facility] Comment on above: Performed By: #### 4 6608 ####[facility] LAB [address] [address] Maurice Coello M.D. [id number] TROPONIN T INTERPRETATION Possible acute cardiac injury. [facility] Comment on above: Performed By: #### 4 6608 ####[facility] LAB [address] [address] Maurice Coello M.D. [id number] Troponin x 2 (Now and Repeat in 2 hours)on 02-13-2025 Interpretation and review of laboratory results Abnormal [facility] Troponin T 99 ng/L Critically high NINF - 14 ng/L [facility] Troponin T Interpretation Possible acute cardiac injury. [facility] Troponin x 2 (Now and Repeat in 2 hours)Ordered By: Zaire Sparrow on 02-13-2025 Interpretation and review of laboratory results Abnormal [facility] Troponin T 100 ng/L Critically high NINF - 14 ng/L [facility] Troponin T Interpretation Possible acute cardiac injury. [facility] URINALYSISon 02-13-2025 AMORPHOUS CRYSTALS Few Abnormal None Seen , Rare [facility] Comment on above: Order Comment: Micro scopic examination is performed on all urinalysis samples and only positive findings are reported. The test for blood on the chemical analytic portion of urinalysis may also be positive due to hemoglobinuria and myoglobinuria and if red blood cells are present they are quantified by microscopic examination. Performed By: #### 4 6625 ####[facility] LAB [address] [address] Maurice Coello M.D. [id number] BACTERIA, URINE None Seen Normal None Seen [facility] Comment on above: Order Comment: Micro scopic examination is performed on all urinalysis samples and only positive findings are reported. The test for blood on the chemical analytic portion of urinalysis may also be positive due to hemoglobinuria and myoglobinuria and if red blood cells are present they are quantified by microscopic examination. Performed By: #### 4 6625 #### LAB [address] [address] Maurice Coello M.D. [id number] BILIRUBIN, URINE Negative Normal Negative [facility] Comment on above: Order Comment: Micro scopic examination is performed on all urinalysis samples and only positive findings are reported. The test for blood on the chemical analytic portion of urinalysis may also be positive due to hemoglobinuria and myoglobinuria and if red blood cells are present they are quantified by microscopic examination. Performed By: #### 4 6625 #### LAB [address] [address] Maurice Coello M.D. [id number] BLOOD, URINE Large Abnormal Negative [facility] Comment on above: Order Comment: Micro scopic examination is performed on all urinalysis samples and only positive findings are reported. The test for blood on the chemical analytic portion of urinalysis may also be positive due to hemoglobinuria and myoglobinuria and if red blood cells are present they are quantified by microscopic examination. Performed By: #### 4 6625 #### LAB [address] [address] Maurice Coello M.D. [id number] Clarity (U) Clear Normal Clear [facility] Comment on above: Order Comment: Micro scopic examination is performed on all urinalysis samples and only positive findings are reported. The test for blood on the chemical analytic portion of urinalysis may also be positive due to hemoglobinuria and myoglobinuria and if red blood cells are present they are quantified by microscopic examination. Performed By: #### 4 6625 ####[facility] LAB [address] [address] Maurice Coello M.D. [id number] Color (U) Colorless Normal Colorless, Yellow [facility] Comment on above: Order Comment: Micro scopic examination is performed on all urinalysis samples and only positive findings are reported. The test for blood on the chemical analytic portion of urinalysis may also be positive due to hemoglobinuria and myoglobinuria and if red blood cells are present they are quantified by microscopic examination. Performed By: #### 4 6625 #### LAB [address] [address] Maurice Coello M.D. [id number] Glucose Ql (U) Negative Normal Negative [facility] Comment on above: Order Comment: Micro scopic examination is performed on all urinalysis samples and only positive findings are reported. The test for blood on the chemical analytic portion of urinalysis may also be positive due to hemoglobinuria and myoglobinuria and if red blood cells are present they are quantified by microscopic examination. Performed By: #### 4 6625 #### LAB [address] [place] [address] Maurice Coello M.D. [id number] Ketones Ql (U) Negative Normal Negative [facility] Comment on above: Order Comment: Micro scopic examination is performed on all urinalysis samples and only positive findings are reported. The test for blood on the chemical analytic portion of urinalysis may also be positive due to hemoglobinuria and myoglobinuria and if red blood cells are present they are quantified by microscopic examination. Performed By: #### 4 [id number] #### LAB [address] [address] Maurice Coello M.D. [id number] Leukocyte esterase Test strip Ql (U) Negative Normal Negative [facility] Comment on above: Order Comment: Micro scopic examination is performed on all urinalysis samples and only positive findings are reported. The test for blood on the chemical analytic portion of urinalysis may also be positive due to hemoglobinuria and myoglobinuria and if red blood cells are present they are quantified by microscopic examination. Performed By: #### 4 [id number] #### LAB [address] [address] Maurice Coello M.D. [id number] NITRITE, URINE Negative Normal Negative [facility] Comment on above: Order Comment: Micro scopic examination is performed on all urinalysis samples and only positive findings are reported. The test for blood on the chemical analytic portion of urinalysis may also be positive due to hemoglobinuria and myoglobinuria and if red blood cells are present they are quantified by microscopic examination. Performed By: #### 4 [id number] #### LAB [address] [address] Maurice Coello M.D. [id number] pH (U) 5.5 [pH] Normal 5.0-7.0 [facility] Comment on above: Order Comment: Micro scopic examination is performed on all urinalysis samples and only positive findings are reported. The test for blood on the chemical analytic portion of urinalysis may also be positive due to hemoglobinuria and myoglobinuria and if red blood cells are present they are quantified by microscopic examination. Performed By: #### 4 [id number] #### LAB [address] [place] [address] Maurice Coello M.D. [id number] Protein (U) [Mass/Vol] 30 mg/dL Abnormal Negative [facility] Comment on above: Order Comment: Micro scopic examination is performed on all urinalysis samples and only positive findings are reported. The test for blood on the chemical analytic portion of urinalysis may also be positive due to hemoglobinuria and myoglobinuria and if red blood cells are present they are quantified by microscopic examination. Result Comment: Fals e positive results may occur in urines with large amounts of hemoglobin, pH greater than 8.0, contrast medium, or disinfectants including ammonium compounds. Performed By: #### 4 [id number] #### LAB [address] [place], [place] [address] Maurice Coello M.D. [id number] Specific gravity (U) [Rel density] 1.016 Normal 1.005-1.025 [facility] Comment on above: Order Comment: Micro scopic examination is performed on all urinalysis samples and only positive findings are reported. The test for blood on the chemical analytic portion of urinalysis may also be positive due to hemoglobinuria and myoglobinuria and if red blood cells are present they are quantified by microscopic examination. Performed By: #### 4 [id number] #### LAB [address] [place], [place] [address] Maurice Coello M.D. [id number] SQUAMOUS EPITHELIAL < Normal 0-4 [facility] Comment on above: Order Comment: Micro scopic examination is performed on all urinalysis samples and only positive findings are reported. The test for blood on the chemical analytic portion of urinalysis may also be positive due to hemoglobinuria and myoglobinuria and if red blood cells are present they are quantified by microscopic examination. Performed By: #### 4 [id number] #### LAB [address] [place], [place] [address] Maurice Coello M.D. [id number] TRANSITIONAL EPITHELIAL < Normal 0-1 [facility] Comment on above: Order Comment: Micro scopic examination is performed on all urinalysis samples and only positive findings are reported. The test for blood on the chemical analytic portion of urinalysis may also be positive due to hemoglobinuria and myoglobinuria and if red blood cells are present they are quantified by microscopic examination. Performed By: #### 4 [id number] #### LAB [address] [place], [place] [address] Maurice Coello M.D. [id number] UROBILINOGEN, URINE <2.0 Normal <2.0 [facility] Comment on above: Order Comment: Micro scopic examination is performed on all urinalysis samples and only positive findings are reported. The test for blood on the chemical analytic portion of urinalysis may also be positive due to hemoglobinuria and myoglobinuria and if red blood cells are present they are quantified by microscopic examination. Performed By: #### 4 [id number] #### LAB [address] [place], [place] [address] Maurice Coello M.D. [id number] WBC LM.HPF (Urine sed) [#/Area] 1 /[HPF] Normal 0-5 [facility] Comment on above: Order Comment: Micro scopic examination is performed on all urinalysis samples and only positive findings are reported. The test for blood on the chemical analytic portion of urinalysis may also be positive due to hemoglobinuria and myoglobinuria and if red blood cells are present they are quantified by microscopic examination. Performed By: #### 4 [id number] #### LAB [address] [place], [place] [address] Maurice Coello M.D. [id number] URINE AEROBIC CULTUREon 02-04 URINE AEROBIC CULTURE URINE CULTURE < 10,000 CFU/mL of normal urogenital microbiota Normal [facility] Comment on above: Performed By: #### 4 [id number] #### [facility] [address] [place], [place] [address] Arnel Marie M.D. [id number] UrinalysisOrdered By: Bhumi Teixeira on 02-13-2025 Bacteria Auto Ql (U) None Seen None Se en /hpf [facility] Bilirubin Ql (U) Negative Negative [facility] th Clarity Refractometry automated (U) Clear Clear [facility] Color (U) Colorless Colorless, Yellow [facility] Crystals.amorphous Computer assisted (U) [#/Area] Few Abnormal None Seen, Rare /hpf [facility] Epithelial cells.squamous Auto (Urine sed) [#/Area] [facility] Glucose Auto test strip (U) [Mass/Vol] Negative Negative mg/dL [facility] Hemoglobin Auto test strip Ql (U) Large Abnormal Negative [facility] Interpretation and review of laboratory results Abnormal [facility] Ketones (U) [Mass/Vol] Negative Negat radha mg/dL [facility] Leukocyte esterase Auto test strip Ql (U) Negative Negative [facility] Nitrite Auto test strip Ql (U) Negative Negative [facility] pH (U) 5.5 [pH] 5.0 - 7.0 [facility] Protein (U) [Mass/Vol] 30 mg/dL Abnormal Negative [facility] Comment on above: False positive resul ts may occur in urines with large amounts of hemoglobin, pH greater than 8.0, contrast medium, or disinfectants including ammonium compounds. Specific gravity (U) [Rel density] 1.016 1.005 - 1.025 [facility] Transitional cells Computer assisted (U) [#/Area] [facility] Urobilinogen (U) [Mass/Vol] mg/dL NINF - 2.0 mg/dL [facility] WBC Auto (Urine sed) [#/Area] 1 [facility] Microscopic examinat ion is performed on all urinalysis samples and only positive findings are reported. The test for blood on the chemical analytic portion of urinalysis may also be positive due to hemoglobinuria and myoglobinuria and if red blood cells are present they are quantified by microscopic examination. [facility] VBG (obtain and perform)on 0 02-13-2025 [facility] XR CHEST PA/APon 02-13-2025 XR [...] on MonFeb 13, 2025 5:20:06 PM EDT [facility] Comment on above: Order Comment: Injur y/Trauma or Illness?:Illness/OtherHow long have you had these symptoms (acute/chronic)?:AcuteReason for exam?:SOBHistory of cancer?:unknownSurgeries, chemotherapy, or radiation?:cholecystectomy, hysterectomy, oophrectomy, left knee replacementType of Exam?:InitialAdditional signs and symptoms?:n XR Chest PA and Abdomen APon 02-13-2025 [...] lung. The cardiac silhouette is not enlarged. [employer] Jason Panchal Serenity ryanne, DO - 02/13/2025 EXAMINATION: XR CHEST PA/AP [...] acute cardiopulmonary abnormality. Workstation ID: [id number] [facility] Radiology Study observation (narrative) [facility] XR Chest PA and Abdomen APOr dered By: Jason Panchal on 02-13-2025 [facility] Work Phone: Magnetic resonance imaging r eportOrdered By: Dev Escobar on 02-04-2025 Study report [facility] Imaging Services [address] [place] [address] Spine Cervical (Routine) MR#: [id number] Acct: [id number] Name: RADHA SHAFER ANIL Rep #: [id number] : 1960 F 64 From: Pet er Peer DO PCP: Dr. Jennifer Gordon MD Status: REG CLI Study:Spine Cervical (Routine) Date of Exam: 02/03/25 Exam# [id number] Ordering Dr: Paul Whitehead PROCEDURE: SPINE CERVICAL [...] severe at the C5-6 level. Reading Location: [facility] CC: DANIEL Archer; Dr. Jennifer Gordon MD ~ Diver Tender: Signed [facility] Spine Cervical (Routine)on 0 02-03-2025 Spine Cervical (Routine) Normal [facility] Orthopedic Visit Reporton Orthopedic Visit Report Normal [facility] Shoulder min 2 Viewson 01-21 Shoulder min 2 Views Normal [facility] Magnetic resonance imaging r eportOrdered By: Vaibhav Guevara on 01-14-2025 Study report [facility] Imaging Services [address] [place] [address] Spine Lumbar (Routine) MR#: [id number] Acct: [id number] Name: RADHA SHAFER Rep #: [id number] : 1960 F 64 From: Shavonne Guevara MD PCP: Dr. Jennifer Gordon MD Status: REG CLI Study:Spine Lumbar (Routine) Date of Exam: 01/13/25 Exam# [id number] Ordering Dr: Rusty Dozier MD PROCEDURE: SPINE [...] significant spinal canal or foraminal stenosis. L1-2: Qqtsakww-cx-vnmkcb loss of disc height with diffuse disc bulging and anterior disc/osteophyte complex. No significant spinal canal or foraminal stenosis. L2-3: Diffuse disc bulging, asymmetric to the right with a superimposed right lateral disc protrusion, with dztsesli-ii-odwsyl loss of disc height. Relative narrowing of the right lateral recess. Mild facet arthropathy. Mild foraminal stenoses bilaterally. L3-4: Prominent diffuse disc bulging with moderate loss of disc height and lateral/anterior disc/osteophyte complexes. Small superimposed central disc protrusion. Wflkapvt-fi-kuqrtw spinal canal stenosis with near-complete effacement of CSF. Facet arthropathy. Mild ligamentum flavum hypertrophy. Moderate right and mild/moderate left foraminal stenoses. Narrowing of bilateral lateral recesses. L4-5: Yhiiagkf-kn-glczch loss of disc height with diffuse disc bulging, asymmetric to the right. Small superimposed central and left paracentral as well as right lateral disc protrusions. Facet arthropathy. Mild ligamentum flavum hypertrophy. Wkvfervx-vn-mbdtlh spinal canal stenosis with virtually complete effacement of CSF. Qsavmtng-ix-fjkdsi right and moderate left foraminal stenoses. Effacement of ljwun-cpzdiba-hfoj-left lateral recesses L5-S1: Bulging with superimposed left mild diffuse disc foraminal and lateral disc protrusion contacting the exiting nerve root. Mild ligamentum flavum hypertrophy. No significant focal spinal canal stenosis. Facet arthropathy. Jrrujkfp-ys-yluejr left foraminal stenosis. Other: Focal narrowing of the spinal canal at T10-T11, not well evaluated as this is above the field of view of axial imaging. This may be related to a synovial cyst or facet arthropathy given the configuration on sagittal images. Additional cervicothoracic spondylosis on the park warden, not well evaluated. Mild ectasia of the abdominal aorta to 2.4 x 2.4 cm. Tiny presumed renal cysts, incompletely characterized. MRI/Spine Lumbar (Routine) IMPRESSION: 1. Multilevel spondylosis with variable both spinal canal and foraminal stenosesup to moderate/severe as detailed. 2. Additional description as above. Reading Location: [facility] CC: Dr. Jennifer Gordon MD; Dr. Rusty Dozier MD ~ Diver Tender: Signed [facility] Spine Lumbar (Routine)on Spine Lumbar (Routine) Normal [facility] Cerv Spine 4 or 5 Viewson Cerv Spine 4 or 5 Views Normal [facility] Orthopedic Visit Reporton Orthopedic Visit Report Normal [facility] Emergency Department Summary on 01-01-2025 Emergency Department Summary Normal [facility] Neurology Visit Reporton Neurology Visit Report Normal [facility] CBC WITH AUTO DIFFERENTIALon 11-12-2024 AUTO NRBC 0.0 % Normal [facility] Comment on above: Performed By: #### L [id number] ####[facility] LAB [address] [place], [place] [address] Maurice Coello M.D. [id number] AUTO NRBC ABS COUNT 0.00 K/mcL Normal 0.00-0.00 [facility] Comment on above: Performed By: #### L [id number] ####[facility] [address] [place], [place] [address] Maurice Coello M.D. [id number] BASOPHILS ABSOLUTE COUNT 0.06 K/mcL Normal 0.00-0.30 [facility] Comment on above: Performed By: #### L [id number] #### LAB [address] [address] Maurice Coello M.D. [id number] Basophils/100 WBC (Bld) 0.8 % Normal [facility] Comment on above: Performed By: #### L [id number] #### LAB [address] [address] Maurice Coello M.D. [id number] Eosinophils (Bld) [#/Vol] 0.17 10*3/uL Normal 0.00-0.50 [facility] Comment on above: Performed By: #### L [id number] #### LAB [address] [address] Maurice Coello M.D. [id number] Eosinophils/100 WBC (Bld) 2.3 % Normal [facility] Comment on above: Performed By: #### L [id number] #### LAB [address] [address] Maurice Coello M.D. [id number] Erythrocyte distribution width (RBC) [Ratio] 14.1 % Normal 11.6-14.8 [facility] Comment on above: Performed By: #### L [id number] #### LAB [address] [address] Maurice Coello M.D. [id number] Hematocrit (Bld) [Volume fraction] 36.2 % Normal 36.0-46.0 [facility] Comment on above: Performed By: #### L [id number] #### LAB [address] [address] Maurice Coello M.D. [id number] Hemoglobin (Bld) [Mass/Vol] 11.0 g/dL Low 12.0-16.0 [facility] Comment on above: Performed By: #### L [id number] ####[facility] LAB [address] [address] Maurice Coello M.D. [id number] IG ABSOLUTE 0.03 K/mcL Normal 0.00-0.30 [facility] Comment on above: Performed By: #### L [id number] #### LAB [address] [address] Maurice Coello M.D. [id number] IG PERCENT 0.40 % Normal [facility] Comment on above: Result Comment: The IG parameter is the percentage of metamyelocytes, myelocytes and promyelocytes. An immature granulocyte count (IG) of 1% or more suggests the possibility of infection, an IG count of 3% is very likely related to an infection. Performed By: #### L [id number] #### LAB [address] [address] Maurice Coello M.D. [id number] Lymphocytes (Bld) [#/Vol] 1.60 10*3/uL Normal 0.90-4.00 [facility] Comment on above: Performed By: #### L [id number] #### LAB [address] [place] [address] Maurice Coello M.D. [id number] Lymphocytes/100 WBC (Bld) 21.3 % Normal [facility] Comment on above: Performed By: #### L [id number] #### LAB [address] [place] [address] Maurice Coello M.D. [id number] MCH (RBC) [Entitic mass] 26.3 pg Normal 26.0-34.0 [facility] Comment on above: Performed By: #### L [id number] #### LAB [address] [address] Maurice Coello M.D. [id number] MCV (RBC) [Entitic vol] 86.6 fL Normal 80.0-100.0 [facility] Comment on above: Performed By: #### L [id number] #### LAB [address] [place] [address] Maurice Coello M.D. [id number] MEAN CORPUSCULAR HEMOGLOBIN CONC 30.4 g/dL Low 31.0-37.0 [facility] Comment on above: Performed By: #### L [id number] #### LAB [address] [address] Maurice Coello M.D. [id number] Monocytes (Bld) [#/Vol] 0.56 10*3/uL Normal 0.30-0.90 [facility] Comment on above: Performed By: #### L [id number] #### LAB [address] [address] Maurice Coelol M.D. [id number] Monocytes/100 WBC (Bld) 7.5 % Normal [facility] Comment on above: Performed By: #### L [id number] #### LAB [address] [address] Maurice Coello M.D. [id number] NEUTROPHILS ABSOLUTE COUNT 5.09 K/mcL Normal 1.70-7.00 [facility] Comment on above: Performed By: #### L [id number] #### LAB [address] [address] Maurice Coello M.D. [id number] Neutrophils/100 WBC (Bld) 67.7 % Normal [facility] Comment on above: Performed By: #### L [id number] #### LAB [address] [address] Maurice Coello M.D. [id number] Platelet mean volume (Bld) [Entitic vol] 10.5 fL Normal 9.4-12.4 [facility] Comment on above: Performed By: #### L [id number] #### LAB [address] [address] Maurice Coello M.D. [id number] Platelets (Bld) [#/Vol] 264 10*3/uL Normal 150-400 [facility] Comment on above: Performed By: #### L [id number] #### LAB [address] [address] Maurice Coello M.D. [id number] RBC (Bld) [#/Vol] 4.18 10*6/uL Normal 4.00-5.20 [facility] Comment on above: Performed By: #### L [id number] ####[facility] LAB [address] [address] Maurice Coello M.D. [id number] WBC (Bld) [#/Vol] 7.51 10*3/uL Normal 4.50-11.00 [facility] Comment on above: Performed By: #### L [id number] ####[facility] [address] [address] Maurice Coello M.D. [id number] COMPREHENSIVE METABOLIC PANE Jett 11-12-2024 Albumin [Mass/Vol] 4.1 g/dL Normal 3.2-5.2 [facility] Comment on above: Order Comment: [facility] has implemented the eGFR calculation approach that does not have a coefficient for race that conforms to the NKF-ASN Task Force Recommendations. Performed By: #### 4 6932 #### LAB [address] [address] Maurice Coello M.D. [id number] ALP [Catalytic activity/Vol] 72 U/L Normal 40-150 [facility] Comment on above: Order Comment: [facility] has implemented the eGFR calculation approach that does not have a coefficient for race that conforms to the NKF-ASN Task Force Recommendations. Performed By: #### 4 6932 #### LAB [address] [address] Maurice Coello M.D. [id number] ALT [Catalytic activity/Vol] 16 U/L Normal 0-35 U/L [facility] Comment on above: Order Comment: [facility] has implemented the eGFR calculation approach that does not have a coefficient for race that conforms to the NKF-ASN Task Force Recommendations. Performed By: #### 4 6932 #### [facility] [address] [address] Maurice Coello M.D. [id number] Anion gap [Moles/Vol] 14 mmol/L Normal 10-20 [facility] Comment on above: Order Comment: [facility] has implemented the eGFR calculation approach that does not have a coefficient for race that conforms to the NKF-ASN Task Force Recommendations. Performed By: #### 4 6932 #### LAB [address] [address] Maurice Coello M.D. [id number] AST [Catalytic activity/Vol] 17 U/L Normal 0-35 U/L [facility] Comment on above: Order Comment: [facility] has implemented the eGFR calculation approach that does not have a coefficient for race that conforms to the NKF-ASN Task Force Recommendations. Performed By: #### 4 6932 #### LAB [address] [address] Maurice Coello M.D. [id number] BILIRUBIN TOTAL < Normal 0.0-1.3 [facility] Comment on above: Order Comment: [facility] has implemented the eGFR calculation approach that does not have a coefficient for race that conforms to the NKF-ASN Task Force Recommendations. Performed By: #### 4 6932 #### LAB [address] [address] Maurice Coello M.D. [id number] Calcium [Mass/Vol] 9.0 mg/dL Normal 8.4-10.2 [facility] Comment on above: Order Comment: [facility] has implemented the eGFR calculation approach that does not have a coefficient for race that conforms to the NKF-ASN Task Force Recommendations. Performed By: #### 4 6932 #### LAB [address] [address] Maurice Coello M.D. [id number] Chloride [Moles/Vol] 97 mmol/L Low 98-108 [facility] Comment on above: Order Comment: [facility] has implemented the eGFR calculation approach that does not have a coefficient for race that conforms to the NKF-ASN Task Force Recommendations. Performed By: #### 4 6932 #### LAB [address] [address] Maurice Coello M.D. [id number] Creatinine [Mass/Vol] 2.18 mg/dL High 0.60-1.10 [facility] Comment on above: Order Comment: [facility] has implemented the eGFR calculation approach that does not have a coefficient for race that conforms to the NKF-ASN Task Force Recommendations. Performed By: #### 4 6940 #### LAB [address] [place], [place] [address] Maurice Coello M.D. [id number] EGFR 24 mL/min/1.73 m2 Low >=60 [facility] Comment on above: Order Comment: [facility] has implemented the eGFR calculation approach that does not have a coefficient for race that conforms to the NKF-ASN Task Force Recommendations. Result Comment: Ericka mated GFR was calculated using the 2020 CKD-EPI creatinine equation. Performed By: #### 4 6932 #### LAB [address] [place], [place] [address] Maurice Coello M.D. [id number] Glucose [Mass/Vol] 92 mg/dL Normal 65-99 [facility] Comment on above: Order Comment: [facility] has implemented the eGFR calculation approach that does not have a coefficient for race that conforms to the NKF-ASN Task Force Recommendations. Performed By: #### 4 6941 #### LAB [address] [address] Maurice Coello M.D. [id number] HCO3 (Bld) [Moles/Vol] 28 mmol/L Normal 21-32 [facility] Comment on above: Order Comment: [facility] has implemented the eGFR calculation approach that does not have a coefficient for race that conforms to the NKF-ASN Task Force Recommendations. Performed By: #### 4 6992 #### LAB [address] [address] Maurice Coello M.D. [id number] Potassium [Moles/Vol] 5.1 mmol/L Normal 3.5-5.1 [facility] Comment on above: Order Comment: [facility] has implemented the eGFR calculation approach that does not have a coefficient for race that conforms to the NKF-ASN Task Force Recommendations. Performed By: #### 4 6932 #### LAB [address] [place], [place] [address] Maurice Coello M.D. [id number] Protein [Mass/Vol] 7.2 g/dL Normal 6.0-8.0 [facility] Comment on above: Order Comment: [facility] has implemented the eGFR calculation approach that does not have a coefficient for race that conforms to the NKF-ASN Task Force Recommendations. Performed By: #### 4 6932 #### LAB [address] [place], [place] [address] Maurice Coello M.D. [id number] Sodium [Moles/Vol] 134 mmol/L Low 135-145 [facility] Comment on above: Order Comment: [facility] has implemented the eGFR calculation approach that does not have a coefficient for race that conforms to the NKF-ASN Task Force Recommendations. Performed By: #### 4 6932 #### LAB [address] [address] Maurice Coello M.D. [id number] Urea nitrogen [Mass/Vol] 38 mg/dL High 8-25 [facility] Comment on above: Order Comment: [facility] has implemented the eGFR calculation approach that does not have a coefficient for race that conforms to the NKF-ASN Task Force Recommendations. Performed By: #### 4 6932 #### LAB [address] [place], [place] [address] Maurice Coello M.D. [id number] Urea nitrogen/Creatinine [Mass ratio] 17.4 mg/mg Normal 10.0-20.0 [facility] Comment on above: Order Comment: [facility] has implemented the eGFR calculation approach that does not have a coefficient for race that conforms to the NKF-ASN Task Force Recommendations. Performed By: #### 4 6932 #### LAB [address] [place], [place] [address] Maurice Coello M.D. [id number] CT KIDNEY STONEon 11-12-2024 CT KIDNEY STONE [...] MonNov 12, 2024 7:20:28 PM EST Normal [facility] Comment on above: Order Comment: Injur y/Trauma or Illness?:Illness/OtherHow long have you had these symptoms (acute/chronic)?:AcuteReason for exam?:Right sided abdominal/flank pain x2 weeksType of Exam?:InitialAdditional signs and symptoms?:Denies N/V/D, CKD hx thus no IV contrast ED Prov Noteon 11-12-2024 ED Prov Note ED PROVIDER NOTE [facility] NAME: Radha Shafer AGE: 64 y.o. : 1960 VISIT DATE: 11/12/2024 CSN: [id number] PCP: Erin, Physician Chief Complaint Patient presents [...] Angiogram; Surgeon: Tor Long MD; Location: [facility]; Service: Cardiovascular CARDIOVASCULAR STRESS TEST CHOLECYSTECTOMY COLONOSCOPY with biopsies COLONOSCOPY N/A 02/17/2022 Procedure: COLONOSCOPY; Surgeon: Jada Vargas MD; [place] [facility] [place] Service: Colorectal EGD N/A 08/15/2022 Procedure: ESOPHAGOGASTRODUODENOSC OPY WITH BIOPSY; Surgeon: Tyshawn Santos MD; Location: Endo; Service: Gastroenterology GALLBLADDER HC LEFT HEART CATH N/A 09/26/2022 Procedure: Left Heart Cath; Surgeon: Tor Long MD; Location: [facility]; Service: Cardiovascular HYSTERECTOMY JOINT REPLACEMENT Left knee ORTHOPEDIC SURGERY r wrist surgery, left ankle, right rotator cuff ROTATOR CUFF REPAIR Right SIGMOIDOSCOPY FLEXIBLE N/A 06/23/2022 Procedure: SIGMOIDOSCOPY FLEXIBLE WITH BIOPSY; Surgeon: Tyshawn Santos MD; Location: Endo; Service: Gastroenterology THYROIDECTOMY N/A 07/15/2015 Procedure: TOTAL THYROIDECTOMY; Surgeon: Lopez Alonso MD; Location: [facility]; Service: US ECHO TRANSTHORACIC FOLLOWUP [...] Socioeconomic History Marital status: Occupational History 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 Normal [facility] LIPASEon 11-12-2024 Lipase [Catalytic activity/Vol] 66 U/L High 15-65 [facility] Comment on above: Performed By: #### 4 [id number] #### LAB [address] [place] [address] Maurice Coello M.D. [id number] URINALYSISon 11-12-2024 BACTERIA, URINE Rare Abnormal None Seen [facility] Comment on above: Order Comment: Micro scopic examination is performed on all urinalysis samples and only positive findings are reported. The test for blood on the chemical analytic portion of urinalysis may also be positive due to hemoglobinuria and myoglobinuria and if red blood cells are present they are quantified by microscopic examination. Performed By: #### 4 [id number] #### LAB [address] [place] [address] Maurice Coello M.D. [id number] BILIRUBIN, URINE Negative Normal Negative [facility] Comment on above: Order Comment: Micro scopic examination is performed on all urinalysis samples and only positive findings are reported. The test for blood on the chemical analytic portion of urinalysis may also be positive due to hemoglobinuria and myoglobinuria and if red blood cells are present they are quantified by microscopic examination. Performed By: #### 4 [id number] #### LAB [address] [place] [address] Maurice Coello M.D. [id number] BLOOD, URINE Negative Normal Negative [facility] Comment on above: Order Comment: Micro scopic examination is performed on all urinalysis samples and only positive findings are reported. The test for blood on the chemical analytic portion of urinalysis may also be positive due to hemoglobinuria and myoglobinuria and if red blood cells are present they are quantified by microscopic examination. Performed By: #### 4 [id number] #### LAB [address] [place] [address] Maurice Coello M.D. [id number] Clarity (U) Clear Normal Clear [facility] Comment on above: Order Comment: Micro scopic examination is performed on all urinalysis samples and only positive findings are reported. The test for blood on the chemical analytic portion of urinalysis may also be positive due to hemoglobinuria and myoglobinuria and if red blood cells are present they are quantified by microscopic examination. Performed By: #### 4 [id number] #### LAB [address] [place] [address] Maurice Coello M.D. [id number] Color (U) Colorless Normal Colorless, Yellow [facility] Comment on above: Order Comment: Micro scopic examination is performed on all urinalysis samples and only positive findings are reported. The test for blood on the chemical analytic portion of urinalysis may also be positive due to hemoglobinuria and myoglobinuria and if red blood cells are present they are quantified by microscopic examination. Performed By: #### 4 [id number] #### LAB [address] [place] [address] Maurice Coello M.D. [id number] Glucose Ql (U) Negative Normal Negative, >=1000 [facility] Comment on above: Order Comment: Micro scopic examination is performed on all urinalysis samples and only positive findings are reported. The test for blood on the chemical analytic portion of urinalysis may also be positive due to hemoglobinuria and myoglobinuria and if red blood cells are present they are quantified by microscopic examination. Performed By: #### 4 [id number] #### LAB [address] [place] [address] Maurice Coello M.D. [id number] Hyaline casts LM Ql (Urine sed) 0-2 Normal 0-2 [facility] Comment on above: Order Comment: Micro scopic examination is performed on all urinalysis samples and only positive findings are reported. The test for blood on the chemical analytic portion of urinalysis may also be positive due to hemoglobinuria and myoglobinuria and if red blood cells are present they are quantified by microscopic examination. Performed By: #### 4 [id number] #### LAB [address] [place] [address] Maurice Coello M.D. [id number] Ketones Ql (U) Negative Normal Negative [facility] Comment on above: Order Comment: Micro scopic examination is performed on all urinalysis samples and only positive findings are reported. The test for blood on the chemical analytic portion of urinalysis may also be positive due to hemoglobinuria and myoglobinuria and if red blood cells are present they are quantified by microscopic examination. Performed By: #### 4 [id number] #### LAB [address] [place] [address] Maurice Coello M.D. [id number] Leukocyte esterase Test strip Ql (U) Trace Abnormal Negative [facility] Comment on above: Order Comment: Micro scopic examination is performed on all urinalysis samples and only positive findings are reported. The test for blood on the chemical analytic portion of urinalysis may also be positive due to hemoglobinuria and myoglobinuria and if red blood cells are present they are quantified by microscopic examination. Performed By: #### 4 [id number] #### LAB [address] [place] [address] Maurice Coello M.D. [id number] NITRITE, URINE Negative Normal Negative [facility] Comment on above: Order Comment: Micro scopic examination is performed on all urinalysis samples and only positive findings are reported. The test for blood on the chemical analytic portion of urinalysis may also be positive due to hemoglobinuria and myoglobinuria and if red blood cells are present they are quantified by microscopic examination. Performed By: #### 4 [id number] #### LAB [address] [place] [address] Maurice Coello M.D. [id number] pH (U) 5.0 [pH] Normal 5.0-7.0 [facility] Comment on above: Order Comment: Micro scopic examination is performed on all urinalysis samples and only positive findings are reported. The test for blood on the chemical analytic portion of urinalysis may also be positive due to hemoglobinuria and myoglobinuria and if red blood cells are present they are quantified by microscopic examination. Performed By: #### 4 6625 #### LAB [address] [place] [address] Maurice Coello M.D. [id number] PROTEIN, URINE Negative Normal Negative [facility] Comment on above: Order Comment: Micro scopic examination is performed on all urinalysis samples and only positive findings are reported. The test for blood on the chemical analytic portion of urinalysis may also be positive due to hemoglobinuria and myoglobinuria and if red blood cells are present they are quantified by microscopic examination. Performed By: #### 4 [id number] #### LAB [address] [place] [address] Maurice Coello M.D. [id number] RBC, URINE < Normal 0-3 [facility] Comment on above: Order Comment: Micro scopic examination is performed on all urinalysis samples and only positive findings are reported. The test for blood on the chemical analytic portion of urinalysis may also be positive due to hemoglobinuria and myoglobinuria and if red blood cells are present they are quantified by microscopic examination. Performed By: #### 4 [id number] #### LAB [address] [place] [address] Maurice Coello M.D. [id number] Specific gravity (U) [Rel density] 1.009 Normal 1.005-1.025 [facility] Comment on above: Order Comment: Micro scopic examination is performed on all urinalysis samples and only positive findings are reported. The test for blood on the chemical analytic portion of urinalysis may also be positive due to hemoglobinuria and myoglobinuria and if red blood cells are present they are quantified by microscopic examination. Performed By: #### 4 [id number] #### LAB [address] [place] [address] Maurice Coello M.D. [id number] SQUAMOUS EPITHELIAL 3 /hpf Normal 0-4 [facility] Comment on above: Order Comment: Micro scopic examination is performed on all urinalysis samples and only positive findings are reported. The test for blood on the chemical analytic portion of urinalysis may also be positive due to hemoglobinuria and myoglobinuria and if red blood cells are present they are quantified by microscopic examination. Performed By: #### 4 6625 #### LAB [address] [place] [address] Maurice Coello M.D. [id number] TRANSITIONAL EPITHELIAL 1 /hpf Normal 0-1 [facility] Comment on above: Order Comment: Micro scopic examination is performed on all urinalysis samples and only positive findings are reported. The test for blood on the chemical analytic portion of urinalysis may also be positive due to hemoglobinuria and myoglobinuria and if red blood cells are present they are quantified by microscopic examination. Performed By: #### 4 6625 #### LAB [address] [place], [place] [address] Maurice Coello M.D. [id number] UROBILINOGEN, URINE <2.0 Normal <2.0 [facility] Comment on above: Order Comment: Micro scopic examination is performed on all urinalysis samples and only positive findings are reported. The test for blood on the chemical analytic portion of urinalysis may also be positive due to hemoglobinuria and myoglobinuria and if red blood cells are present they are quantified by microscopic examination. Performed By: #### 4 [id number] #### LAB [address] [place], [place] [address] Maurice Coello M.D. [id number] WBC LM.HPF (Urine sed) [#/Area] 2 /[HPF] Normal 0-5 [facility] Comment on above: Order Comment: Micro scopic examination is performed on all urinalysis samples and only positive findings are reported. The test for blood on the chemical analytic portion of urinalysis may also be positive due to hemoglobinuria and myoglobinuria and if red blood cells are present they are quantified by microscopic examination. Performed By: #### 4 [id number] #### LAB [address] [place], [place] [address] Maurice Coello M.D. [id number] Internal Medicine Office Vis tyshawn 09-30-2024 Internal Medicine Office Visit Normal [facility] CBC Auto Differentialon 09-06 Basophils (Bld) [#/Vol] 0.01 10*3/uL [facility] Basophils/100 WBC (Bld) 0.1 % [facility] Eosinophils (Bld) [#/Vol] 0 10*3/uL [facility] Eosinophils/100 WBC (Bld) 0 % [facility] Erythrocyte distribution width (RBC) [Entitic vol] 14.5 % 11.6 - 14.8 % [facility] Hematocrit (Bld) [Volume fraction] 34.2 % Low 36.0 - 46.0 % [facility] Hemoglobin (Bld) [Mass/Vol] 10.2 g/dL Low 12.0 - 16.0 g/dL [facility] Immature granulocytes (Bld) [#/Vol] 0.08 10*3/uL [facility] Immature granulocytes/100 WBC (Bld) 0.7 % [facility] Comment on above: The IG parameter is the percentage of metamyelocytes, myelocytes and promyelocytes. An immature granulocyte count (IG) of 1% or more suggests the possibility of infection, an IG count of 3% is very likely related to an infection. Interpretation and review of laboratory results Abnormal [facility] Lymphocytes (Bld) [#/Vol] 0.72 10*3/uL Low [facility] Lymphocytes/100 WBC (Bld) 6.4 % [facility] MCH (RBC) [Entitic mass] 25.9 pg Low 26.0 - 34.0 pg [facility] MCHC (RBC) [Mass/Vol] 29.8 g/dL Low 31.0 - 37.0 g/dL [facility] MCV (RBC) [Entitic vol] 86.8 fL 80.0 - 100.0 fL [facility] Monocytes (Bld) [#/Vol] 0.32 10*3/uL [facility] Monocytes/100 WBC (Bld) 2.9 % [facility] Neutrophils (Bld) [#/Vol] 10.09 10*3/uL High [facility] Neutrophils/100 WBC (Bld) 89.9 % [facility] Nucleated RBC (Bld) [#/Vol] 0 10*3/uL [facility] Nucleated RBC/100 WBC (Bld) [Ratio] 0 % [facility] Platelet mean volume (Bld) [Entitic vol] 10.2 fL 9.4 - 12.4 fL [facility] Platelets (Bld) [#/Vol] 231 10*3/uL [facility] RBC (Bld) [#/Vol] 3.94 10*6/uL Low [facility] ealth WBC (Bld) [#/Vol] 11.22 10*3/uL High [facility] CBC WITH AUTO DIFFERENTIALon 09-23-2024 AUTO NRBC 0.0 % Normal [facility] Comment on above: Performed By: #### L [id number] ####[facility] LAB [address] [place], [place] [address] Maurice Coello M.D. [id number] AUTO NRBC ABS COUNT 0.00 K/mcL Normal 0.00-0.00 [facility] Comment on above: Performed By: #### L [id number] #### LAB [address] [place] [address] Maurice Coello M.D. [id number] BASOPHILS ABSOLUTE COUNT 0.01 K/mcL Normal 0.00-0.30 [facility] Comment on above: Performed By: #### L [id number] #### LAB [address] [place] [address] Maurice Coello M.D. [id number] Basophils/100 WBC (Bld) 0.1 % Normal [facility] Comment on above: Performed By: #### L [id number] #### LAB [address] [place] [address] Maurice Coello M.D. [id number] Eosinophils (Bld) [#/Vol] 0.00 10*3/uL Normal 0.00-0.50 [facility] Comment on above: Performed By: #### L [id number] #### LAB [address] [place] [address] Maurice Coello M.D. [id number] Eosinophils/100 WBC (Bld) 0.0 % Normal [facility] Comment on above: Performed By: #### L [id number] #### LAB [address] [place] [address] Maurice Coello M.D. [id number] Erythrocyte distribution width (RBC) [Ratio] 14.5 % Normal 11.6-14.8 [facility] Comment on above: Performed By: #### L [id number] #### LAB [address] [place] [address] Maurice Coello M.D. [id number] Hematocrit (Bld) [Volume fraction] 34.2 % Low 36.0-46.0 [facility] Comment on above: Performed By: #### L [id number] #### LAB [address] [place] [address] Maurice Coello M.D. [id number] Hemoglobin (Bld) [Mass/Vol] 10.2 g/dL Low 12.0-16.0 [facility] Comment on above: Performed By: #### L [id number] #### LAB [address] [place] [address] Maurice Coello M.D. [id number] IG ABSOLUTE 0.08 K/mcL Normal 0.00-0.30 [facility] Comment on above: Performed By: #### L [id number] #### LAB [address] [place] [address] Maurice Coello M.D. [id number] IG PERCENT 0.70 % [facility] Comment on above: Result Comment: The IG parameter is the percentage of metamyelocytes, myelocytes and promyelocytes. An immature granulocyte count (IG) of 1% or more suggests the possibility of infection, an IG count of 3% is very likely related to an infection. Performed By: #### L [id number] #### LAB [address] [place] [address] Maurice Coello M.D. [id number] Lymphocytes (Bld) [#/Vol] 0.72 10*3/uL Low 0.90-4.00 [facility] Comment on above: Performed By: #### L [id number] #### LAB [address] [place] [address] Maurice Coello M.D. [id number] Lymphocytes/100 WBC (Bld) 6.4 % [facility] Comment on above: Performed By: #### L [id number] #### LAB [address] [place] [address] Maurice Coello M.D. [id number] MCH (RBC) [Entitic mass] 25.9 pg Low 26.0-34.0 [facility] Comment on above: Performed By: #### L [id number] #### LAB [address] [place] [address] Maurice Coello M.D. [id number] MCV (RBC) [Entitic vol] 86.8 fL Normal 80.0-100.0 [facility] Comment on above: Performed By: #### L [id number] #### LAB [address] [place] [address] Maurice Coello M.D. [id number] MEAN CORPUSCULAR HEMOGLOBIN CONC 29.8 g/dL Low 31.0-37.0 [facility] Comment on above: Performed By: #### L [id number] #### LAB [address] [place] [address] Maurice Coello M.D. [id number] Monocytes (Bld) [#/Vol] 0.32 10*3/uL Normal 0.30-0.90 [facility] Comment on above: Performed By: #### L [id number] #### LAB [address] [place] [address] Maurice Coello M.D. [id number] Monocytes/100 WBC (Bld) 2.9 % Normal [facility] Comment on above: Performed By: #### L [id number] #### LAB [address] [place] [address] Maurice Coello M.D. [id number] NEUTROPHILS ABSOLUTE COUNT 10.09 K/mcL High 1.70-7.00 [facility] Comment on above: Performed By: #### L [id number] #### LAB [address] [place] [address] Maurice Coello M.D. [id number] Neutrophils/100 WBC (Bld) 89.9 % Normal [facility] Comment on above: Performed By: #### L [id number] #### LAB [address] [place] [address] Maurice Coello M.D. [id number] Platelet mean volume (Bld) [Entitic vol] 10.2 fL Normal 9.4-12.4 [facility] Comment on above: Performed By: #### L [id number] #### LAB [address] [place] [address] Maurice Coello M.D. [id number] Platelets (Bld) [#/Vol] 231 10*3/uL Normal 150-400 [facility] Comment on above: Performed By: #### L [id number] ####[facility] LAB [address] [place] [address] Maurice Coello M.D. [id number] RBC (Bld) [#/Vol] 3.94 10*6/uL Low 4.00-5.20 [facility] Comment on above: Performed By: #### L [id number] ####[facility] LAB [address] [place] [address] Maurice Coello M.D. [id number] WBC (Bld) [#/Vol] 11.22 10*3/uL High 4.50-11.00 [facility] Comment on above: Performed By: #### L [id number] ####[facility] LAB [address] [place] [address] Maurice Coello M.D. [id number] CK [Catalytic activity/Vol]o n 09-23-2024 Interpretation and review of laboratory results Abnormal [facility] COMPREHENSIVE METABOLIC PANE Jett 09-23-2024 Albumin [Mass/Vol] 3.7 g/dL Normal 3.2-5.2 [facility] Comment on above: Order Comment: Injur y/Trauma or Illness?:Illness/Other How long have you had these symptoms (acute/chronic)?:Chronic Reason for exam?:A-fib [facility] TO READ Type of Exam?:Initial Additional signs and symptoms?:n Performed By: #### 4 6126 ####[facility] LAB [address] [place] [address] Maurice Coello M.D. [id number] ALP [Catalytic activity/Vol] 82 U/L Normal 40-150 [facility] Comment on above: Order Comment: Injur y/Trauma or Illness?:Illness/Other How long have you had these symptoms (acute/chronic)?:Chronic Reason for exam?:A-fib [facility] TO READ Type of Exam?:Initial Additional signs and symptoms?:n Performed By: #### 4 6126 ####[facility] LAB [address] [place] [address] Maurice Coello M.D. [id number] ALT [Catalytic activity/Vol] 17 U/L Normal 0-35 U/L [facility] Comment on above: Order Comment: Injur y/Trauma or Illness?:Illness/Other How long have you had these symptoms (acute/chronic)?:Chronic Reason for exam?:A-fib [facility] TO READ Type of Exam?:Initial Additional signs and symptoms?:n Performed By: #### 4 6126 #### LAB [address] [place] [address] Maurice Coello M.D. [id number] Anion gap [Moles/Vol] 13 mmol/L Normal 10-20 [facility] Comment on above: Order Comment: Injur y/Trauma or Illness?:Illness/Other How long have you had these symptoms (acute/chronic)?:Chronic Reason for exam?:A-fib [facility] TO READ Type of Exam?:Initial Additional signs and symptoms?:n Performed By: #### 4 6126 #### LAB [address] [place] [address] Maurice Coello M.D. [id number] AST [Catalytic activity/Vol] 42 U/L High 0-35 U/L [facility] Comment on above: Order Comment: Injur y/Trauma or Illness?:Illness/Other How long have you had these symptoms (acute/chronic)?:Chronic Reason for exam?:A-fib [facility] TO READ Type of Exam?:Initial Additional signs and symptoms?:n Performed By: #### 4 6126 #### LAB [address] [place] [address] Maurice Coello M.D. [id number] BILIRUBIN TOTAL < Normal 0.0-1.3 [facility] Comment on above: Order Comment: Injur y/Trauma or Illness?:Illness/Other How long have you had these symptoms (acute/chronic)?:Chronic Reason for exam?:A-fib [facility] TO READ Type of Exam?:Initial Additional signs and symptoms?:n Performed By: #### 4 6126 #### LAB [address] [place] [address] Maurice Coello M.D. [id number] Calcium [Mass/Vol] 9.0 mg/dL Normal 8.4-10.2 [facility] Comment on above: Order Comment: Injur y/Trauma or Illness?:Illness/Other How long have you had these symptoms (acute/chronic)?:Chronic Reason for exam?:A-fib [facility] TO READ Type of Exam?:Initial Additional signs and symptoms?:n Performed By: #### 4 6126 #### LAB [address] [place] [address] Maurice Coello M.D. [id number] Chloride [Moles/Vol] 98 mmol/L Normal 98-108 [facility] Comment on above: Order Comment: Injur y/Trauma or Illness?:Illness/Other How long have you had these symptoms (acute/chronic)?:Chronic Reason for exam?:A-fib [facility] TO READ Type of Exam?:Initial Additional signs and symptoms?:n Performed By: #### 4 6126 #### LAB [address] [place] [address] Maurice Coello M.D. [id number] Creatinine [Mass/Vol] 1.28 mg/dL High 0.60-1.10 [facility] Comment on above: Order Comment: Injur y/Trauma or Illness?:Illness/Other How long have you had these symptoms (acute/chronic)?:Chronic Reason for exam?:A-fib [facility] TO READ Type of Exam?:Initial Additional signs and symptoms?:n Performed By: #### 4 6126 #### LAB [address] [place] [address] Maurice Coello M.D. [id number] EGFR 46 mL/min/1.73 m2 Low >=60 [facility] Comment on above: Order Comment: Injur y/Trauma or Illness?:Illness/Other How long have you had these symptoms (acute/chronic)?:Chronic Reason for exam?:A-fib [facility] TO READ Type of Exam?:Initial Additional signs and symptoms?:n Result Comment: Ericka rodriguez GFR was calculated using the 2020 CKD-EPI creatinine equation. Performed By: #### 4 6126 #### LAB [address] [place] [address] Maurice Colelo M.D. [id number] Glucose [Mass/Vol] 121 mg/dL High 65-99 [facility] Comment on above: Order Comment: Injur y/Trauma or Illness?:Illness/Other How long have you had these symptoms (acute/chronic)?:Chronic Reason for exam?:A-fib [facility] TO READ Type of Exam?:Initial Additional signs and symptoms?:n Performed By: #### 4 6126 #### LAB [address] [address] Maurice Coello M.D. [id number] HCO3 (Bld) [Moles/Vol] 30 mmol/L Normal 21-32 [facility] Comment on above: Order Comment: Injur y/Trauma or Illness?:Illness/Other How long have you had these symptoms (acute/chronic)?:Chronic Reason for exam?:A-fib [facility] TO READ Type of Exam?:Initial Additional signs and symptoms?:n Performed By: #### 4 6126 #### LAB [address] [address] Maurice Coello M.D. [id number] Potassium [Moles/Vol] 4.8 mmol/L Normal 3.5-5.1 [facility] Comment on above: Order Comment: Injur y/Trauma or Illness?:Illness/Other How long have you had these symptoms (acute/chronic)?:Chronic Reason for exam?:A-fib [facility] TO READ Type of Exam?:Initial Additional signs and symptoms?:n Performed By: #### 4 6126 #### LAB [address] [address] Maurice Coello M.D. [id number] Protein [Mass/Vol] 6.4 g/dL Normal 6.0-8.0 [facility] Comment on above: Order Comment: Injur y/Trauma or Illness?:Illness/Other How long have you had these symptoms (acute/chronic)?:Chronic Reason for exam?:A-fib [facility] TO READ Type of Exam?:Initial Additional signs and symptoms?:n Performed By: #### 4 6126 #### LAB [address] [address] Maurice Coello M.D. [id number] Sodium [Moles/Vol] 136 mmol/L Normal 135-145 [facility] Comment on above: Order Comment: Injur y/Trauma or Illness?:Illness/Other How long have you had these symptoms (acute/chronic)?:Chronic Reason for exam?:A-fib [facility] TO READ Type of Exam?:Initial Additional signs and symptoms?:n Performed By: #### 4 6126 #### LAB [address] [address] Maurice Coello M.D. [id number] Urea nitrogen [Mass/Vol] 24 mg/dL Normal 8-25 [facility] Comment on above: Order Comment: Injur y/Trauma or Illness?:Illness/Other How long have you had these symptoms (acute/chronic)?:Chronic Reason for exam?:A-fib [facility] TO READ Type of Exam?:Initial Additional signs and symptoms?:n Performed By: #### 4 6126 #### LAB [address] [address] Maurice Coello M.D. [id number] Urea nitrogen/Creatinine [Mass ratio] 18.8 mg/mg Normal 10.0-20.0 [facility] Comment on above: Order Comment: Injur y/Trauma or Illness?:Illness/Other How long have you had these symptoms (acute/chronic)?:Chronic Reason for exam?:A-fib [facility] TO READ Type of Exam?:Initial Additional signs and symptoms?:n Performed By: #### 4 6126 #### LAB [address] [place], [place] [address] Maurice Coello M.D. [id number] CPKon 09-23-2024 CPK 478 U/L High 40-170 [facility] Comment on above: Performed By: #### 4 8261 #### LAB [address] [place], [place] [address] Maurice Coello M.D. [id number] CPK NO MBon 09-23-2024 CK [Catalytic activity/Vol] 478 U/L High 40 - 170 U/L [facility] Comprehensive metabolic 2000 panelOrdered By: Rachel Hobson on 09-23-2024 Albumin [Mass/Vol] 3.7 g/dL 3.2 - 5.2 g/dL [facility] ALP [Catalytic activity/Vol] 82 U/L 40 - 150 U/L [facility] ALT [Catalytic activity/Vol] 17 U/L 0-35 U/L [facility] Anion gap [Moles/Vol] 13 mmol/L 10 - 2 0 mmol/L [facility] AST [Catalytic activity/Vol] 42 U/L High 0-35 U/L [facility] Bilirubin [Mass/Vol] mg/dL 0.0 - 1 .3 mg/dL [facility] Calcium [Mass/Vol] 9 mg/dL 8.4 - 10. 2 mg/dL [facility] Chloride [Moles/Vol] 98 mmol/L 98 - 10 8 mmol/L [facility] Creatinine [Mass/Vol] 1.28 mg/dL High 0.60 - 1.10 mg/dL [facility] GFR/1.73 sq M.predicted CKD-EPI (S/P/Bld) [Vol rate/Area] 46 Low - PINF [facility] Comment on above: Estimated GFR was ca lculated using the 2020 CKD-EPI creatinine equation. Glucose [Mass/Vol] 121 mg/dL High 65 - 99 mg/dL [facility] HCO3 [Moles/Vol] 30 mmol/L 21 - 32 mmol/L [facility] Interpretation and review of laboratory results Abnormal [facility] Potassium [Moles/Vol] 4.8 mmol/L 3.5 - 5.1 mmol/L [facility] Protein [Mass/Vol] 6.4 g/dL 6.0 - 8.0 g/dL [facility] Sodium [Moles/Vol] 136 mmol/L 135 - 145 mmol/L [facility] Urea nitrogen [Mass/Vol] 24 mg/dL 8 - 25 mg/dL [facility] Urea nitrogen/Creatinine [Mass ratio] 18.8 mg/mg 10.0 - 20.0 [facility] has implemented the eGFR calculation approach that does not have a coefficient for race that conforms to the NKF-ASN Task Force Recommendations. [facility] ECHOCARDIOGRAM COMPLETEon ECHOCARDIOGRAM COMPLETE Patient Info Name: RADHA SHAFER Age: 64 years : 1960 Gender: Female Ht: 165 cm Wt: 104 kg BSA: 2.23 m2 HR: 73 bpm BP: 153 / 74 mmHg Heart Rhythm: Sinus Rhythm Technical Quality: Fair Exam Date: 09/23/2024 2:31 PM Patient Status: Inpatient [employer] Leader: Martin Mace RCDS Exam Type: ECHOCARDIOGRAM COMPLETE Study Info Indications - Dyspnea R06.00 - Dyspnea, unspecified Referring Physician: ALEKSANDAR Mccoy; [id number] BMI: 38.11 kg/m2 Summary 1. Normal LV [...] Hypertension: Yes Diabetic Therapy: Oral Myocardial Infarction (WA): No Obesity: Yes Date of Last Tobacco [...] mmHg MV VTI 36 cm MV Decel [place] 408 cm/s2 MV PHT 67 ms MV [...] cm/s >=9.5 (more content not included)... Normal [facility] Echo completeOrdered By: Sravani Back on 09-23-2024 Aortic valve area 3.78166 cm [facility] Work Phone: AV mean gradient 3.78136 mmHg [facility] Work Phone: [phone] AV peak gradient 5.61383 mmHg [facility] Work Phone: EF [phone] % [facility] Work Phone: [phone] [facility] Work Phone: Echo completeon 09-23-2024 Patient Info Name: RADHA SHAFER Age: 64 years : 1960 Gender: Female Ht: 165 cm Wt: 104 kg BSA: 2.23 m2 HR: 73 bpm BP: 153 / 74 mmHg Heart Rhythm: Sinus Rhythm Technical Quality: Fair Exam Date: 09/23/2024 2:31 PM Patient Status: Inpatient [employer] Leader: Martin Mace RCDS Exam Type: ECHOCARDIOGRAM COMPLETE Study Info Indications - Dyspnea R06.00 - Dyspnea, unspecified Referring Physician: ALEKSANDAR Mccoy; [id number] BMI: 38.11 kg/m2 Summary 1. Normal LV [...] Hypertension: Yes Diabetic Therapy: Oral Myocardial Infarction (WA): No Obesity: Yes Date of Last Tobacco [...] Date: 09/23/2024 2:31 PM Patient Status: Inpatient [employer] Leader: Martin Mace RCDS Exam Type: ECHOCARDIOGRAM COMPLETE Study Info Indications - Dyspnea R06.00 - Dyspnea, unspecified Referring Physician: ALEKSANDAR Mccoy; [id number] BMI: 38.11 kg/m2 Summary 1. Normal LV [...] Hypertension: Yes Diabetic Therapy: Oral Myocardial Infarction ([place]): No Obesity: Yes Date of Last Tobacco [...] mmHg MV VTI 36 cm MV Decel [place] 408 cm/s2 MV PHT 67 ms MV [...] TDI ------ (more content not included)... [facility] MAGNESIUM LEVELon 09-23-2024 Magnesium [Mass/Vol] 2.0 mg/dL Normal 1.6-2.4 [facility] Comment on above: Performed By: #### 4 6109 #### LAB [address] [place], [place] [address] Maurice Coello M.D. [id number] Magnesium Levelon 09-23-2024 Magnesium [Mass/Vol] 2 mg/dL 1.6 - 2 .4 mg/dL [facility] Magnesium [Mass/Vol]on 09-23 Interpretation and review of laboratory results Normal [facility] NT PRO BNPon 09-23-2024 Natriuretic peptide B (Bld) [Mass/Vol] 2680 pg/mL High 0-300 [facility] Comment on above: Order Comment: Injur y/Trauma or Illness?:Illness/Other How long have you had these symptoms (acute/chronic)?:Chronic Reason for exam?:A-fib [facility] TO READ Type of Exam?:Initial Additional signs and symptoms?:n Performed By: #### 4 7395 #### LAB [address] [place], [place] [address] Maurice Coello M.D. [id number] NT Pro BNPon 09-23-2024 Natriuretic peptide.B prohormone N-Terminal [Mass/Vol] 2680 pg/mL High 0 - 300 pg/mL [facility] Natriuretic peptide.B prohor curly N-Terminal [Mass/Vol]on 09-23-2024 Interpretation and review of laboratory results Abnormal [facility] Pride Study Cut-offs Rule In: < /= 50 Years >450 pg/mL 51 Years - 75 Years >900 pg/mL 76 Years - 99 Years >1800 pg/mL Rule Out: All patients <300 pg/mL [facility] No Panel InformationOrdered By: Rachel Hobson on 09-23-2024 [facility] BASIC METABOLIC PANELon 09-06 Anion gap [Moles/Vol] 16 mmol/L Normal 10-20 [facility] Comment on above: Order Comment: Injur y/Trauma or Illness?:Illness/Other How long have you had these symptoms (acute/chronic)?:Acute Reason for exam?:sob. Hx of COPD History of cancer?:unknown Surgeries, chemotherapy, or radiation?:cholecystectomy, hysterectomy, oophrectomy, left knee replacement Type of Exam?:Initial Additional signs and symptoms?:. Performed By: #### 4 6124 #### LAB [address] [place], [place] [address] Maurice Coello M.D. [id number] Calcium [Mass/Vol] 8.3 mg/dL Low 8.4-10.2 [facility] Comment on above: Order Comment: Injur y/Trauma or Illness?:Illness/Other How long have you had these symptoms (acute/chronic)?:Acute Reason for exam?:sob. Hx of COPD History of cancer?:unknown Surgeries, chemotherapy, or radiation?:cholecystectomy, hysterectomy, oophrectomy, left knee replacement Type of Exam?:Initial Additional signs and symptoms?:. Performed By: #### 4 6100 #### LAB [address] [address] Maurice Coello M.D. [id number] Chloride [Moles/Vol] 93 mmol/L Low 98-108 [facility] Comment on above: Order Comment: Injur y/Trauma or Illness?:Illness/Other How long have you had these symptoms (acute/chronic)?:Acute Reason for exam?:sob. Hx of COPD History of cancer?:unknown Surgeries, chemotherapy, or radiation?:cholecystectomy, hysterectomy, oophrectomy, left knee replacement Type of Exam?:Initial Additional signs and symptoms?:. Performed By: #### 4 6124 #### LAB [address] [address] Maurice Coello M.D. [id number] Creatinine [Mass/Vol] 1.75 mg/dL High 0.60-1.10 [facility] Comment on above: Order Comment: Injur y/Trauma or Illness?:Illness/Other How long have you had these symptoms (acute/chronic)?:Acute Reason for exam?:sob. Hx of COPD History of cancer?:unknown Surgeries, chemotherapy, or radiation?:cholecystectomy, hysterectomy, oophrectomy, left knee replacement Type of Exam?:Initial Additional signs and symptoms?:. Performed By: #### 4 6137 #### LAB [address] [address] Maurice Coello M.D. [id number] EGFR 32 mL/min/1.73 m2 Low >=60 [facility] Comment on above: Order Comment: Injur y/Trauma or Illness?:Illness/Other How long have you had these symptoms (acute/chronic)?:Acute Reason for exam?:sob. Hx of COPD History of cancer?:unknown Surgeries, chemotherapy, or radiation?:cholecystectomy, hysterectomy, oophrectomy, left knee replacement Type of Exam?:Initial Additional signs and symptoms?:. Result Comment: Ericka mated GFR was calculated using the 2020 CKD-EPI creatinine equation. Performed By: #### 4 6186 #### LAB [address] [address] Maurice Coello M.D. [id number] Glucose [Mass/Vol] 272 mg/dL High 65-99 [facility] Comment on above: Order Comment: Injur y/Trauma or Illness?:Illness/Other How long have you had these symptoms (acute/chronic)?:Acute Reason for exam?:sob. Hx of COPD History of cancer?:unknown Surgeries, chemotherapy, or radiation?:cholecystectomy, hysterectomy, oophrectomy, left knee replacement Type of Exam?:Initial Additional signs and symptoms?:. Performed By: #### 4 6124 #### LAB [address] [address] Maurice Coello M.D. [id number] HCO3 (Bld) [Moles/Vol] 29 mmol/L Normal 21-32 [facility] Comment on above: Order Comment: Injur y/Trauma or Illness?:Illness/Other How long have you had these symptoms (acute/chronic)?:Acute Reason for exam?:sob. Hx of COPD History of cancer?:unknown Surgeries, chemotherapy, or radiation?:cholecystectomy, hysterectomy, oophrectomy, left knee replacement Type of Exam?:Initial Additional signs and symptoms?:. Performed By: #### 4 6109 #### LAB [address] [address] Maurice Coello M.D. [id number] Potassium [Moles/Vol] 5.0 mmol/L Normal 3.5-5.1 [facility] Comment on above: Order Comment: Injur y/Trauma or Illness?:Illness/Other How long have you had these symptoms (acute/chronic)?:Acute Reason for exam?:sob. Hx of COPD History of cancer?:unknown Surgeries, chemotherapy, or radiation?:cholecystectomy, hysterectomy, oophrectomy, left knee replacement Type of Exam?:Initial Additional signs and symptoms?:. Performed By: #### 4 6199 #### LAB [address] [address] Maurice Coello M.D. [id number] Sodium [Moles/Vol] 133 mmol/L Low 135-145 [facility] Comment on above: Order Comment: Injur y/Trauma or Illness?:Illness/Other How long have you had these symptoms (acute/chronic)?:Acute Reason for exam?:sob. Hx of COPD History of cancer?:unknown Surgeries, chemotherapy, or radiation?:cholecystectomy, hysterectomy, oophrectomy, left knee replacement Type of Exam?:Initial Additional signs and symptoms?:. Performed By: #### 4 6168 #### LAB [address] [address] Maurice Coello M.D. [id number] Urea nitrogen [Mass/Vol] 31 mg/dL High 06-30 [facility] Comment on above: Order Comment: Injur y/Trauma or Illness?:Illness/Other How long have you had these symptoms (acute/chronic)?:Acute Reason for exam?:sob. Hx of COPD History of cancer?:unknown Surgeries, chemotherapy, or radiation?:cholecystectomy, hysterectomy, oophrectomy, left knee replacement Type of Exam?:Initial Additional signs and symptoms?:. Performed By: #### 4 6197 #### LAB [address] [address] Maurice Coello M.D. [id number] Urea nitrogen/Creatinine [Mass ratio] 17.7 mg/mg Normal 10.0-20.0 [facility] Comment on above: Order Comment: Injur y/Trauma or Illness?:Illness/Other How long have you had these symptoms (acute/chronic)?:Acute Reason for exam?:sob. Hx of COPD History of cancer?:unknown Surgeries, chemotherapy, or radiation?:cholecystectomy, hysterectomy, oophrectomy, left knee replacement Type of Exam?:Initial Additional signs and symptoms?:. Performed By: #### 4 6124 #### LAB [address] [address] Maurice Coello M.D. [id number] Bacteria identified Aer cx N om (Sput)Ordered By: Nahum Coello on 09-22-2024 Microscopic observation Gram stain Nom (Sput) Specimen screened and found unsatisfactory for culture. [facility] Basic metabolic 2000 panelon 09-22-2024 Anion gap [Moles/Vol] 16 mmol/L 10 - 2 0 mmol/L [facility] Calcium [Mass/Vol] 8.3 mg/dL Low 8.4 - 10. 2 mg/dL [facility] Chloride [Moles/Vol] 93 mmol/L Low 98 - 10 8 mmol/L [facility] Creatinine [Mass/Vol] 1.75 mg/dL High 0.60 - 1.10 mg/dL [facility] GFR/1.73 sq M.predicted CKD-EPI (S/P/Bld) [Vol rate/Area] 32 Low - PINF [facility] Comment on above: Estimated GFR was ca lculated using the 2020 CKD-EPI creatinine equation. Glucose [Mass/Vol] 272 mg/dL High 65 - 99 mg/dL [facility] HCO3 [Moles/Vol] 29 mmol/L 21 - 32 mmol/L [facility] Potassium [Moles/Vol] 5 mmol/L 3.5 - 5.1 mmol/L [facility] Sodium [Moles/Vol] 133 mmol/L Low 135 - 145 mmol/L [facility] Urea nitrogen [Mass/Vol] 31 mg/dL High 8 - 25 mg/dL [facility] Urea nitrogen/Creatinine [Mass ratio] 17.7 mg/mg 10.0 - 20.0 [facility] has implemented the eGFR calculation approach that does not have a coefficient for race that conforms to the NKF-ASN Task Force Recommendations. [facility] CBCon 09-22-2024 AUTO NRBC 0.0 % Normal [facility] Comment on above: Performed By: #### 4 6961 #### MH LAB [address] [address] Maurice Coello M.D. [id number] AUTO NRBC ABS COUNT 0.00 K/mcL Normal 0.00-0.00 [facility] Comment on above: Performed By: #### 4 6946 #### MH LAB [address] [address] Maurice Coello M.D. [id number] Erythrocyte distribution width (RBC) [Ratio] 14.3 % Normal 11.6-14.8 [facility] Comment on above: Performed By: #### 4 6964 #### LAB [address] [address] aMurice Coello M.D. [id number] Hematocrit (Bld) [Volume fraction] 35.1 % Low 36.0-46.0 [facility] Comment on above: Performed By: #### 4 6932 #### LAB [address] [address] Maurice Coello M.D. [id number] Hemoglobin (Bld) [Mass/Vol] 10.3 g/dL Low 12.0-16.0 [facility] Comment on above: Performed By: #### 4 6932 #### LAB [address] [address] Maurice Coello M.D. [id number] MCH (RBC) [Entitic mass] 26.3 pg Normal 26.0-34.0 [facility] Comment on above: Performed By: #### 4 6932 #### LAB [address] [address] Maurice Coello M.D. [id number] MCV (RBC) [Entitic vol] 89.5 fL Normal 80.0-100.0 [facility] Comment on above: Performed By: #### 4 4279 #### LAB [address] [address] Maurice Coello M.D. [id number] MEAN CORPUSCULAR HEMOGLOBIN CONC 29.3 g/dL Low 31.0-37.0 [facility] Comment on above: Performed By: #### 4 6932 #### LAB [address] [address] Maurice Coello M.D. [id number] Platelet mean volume (Bld) [Entitic vol] 10.3 fL Normal 9.4-12.4 [facility] Comment on above: Performed By: #### 4 6372 #### LAB [address] [address] Maurice Coello M.D. [id number] Platelets (Bld) [#/Vol] 194 10*3/uL Normal 150-400 [facility] Comment on above: Performed By: #### 4 6823 #### LAB [address] [address] Maurice Coello M.D. [id number] RBC (Bld) [#/Vol] 3.92 10*6/uL Low 4.00-5.20 [facility] Comment on above: Performed By: #### 4 6932 #### LAB [address] [place], [place] [address] Maurice Coello M.D. [id number] WBC (Bld) [#/Vol] 7.07 10*3/uL Normal 4.50-11.00 [facility] Comment on above: Performed By: #### 4 6932 #### LAB [address] [place], [place] [address] Maurice Coello M.D. [id number] CBC panel Auto (Bld)on 09-22 Erythrocyte distribution width (RBC) [Entitic vol] 14.3 % 11.6 - 14.8 % [facility] Hematocrit (Bld) [Volume fraction] 35.1 % Low 36.0 - 46.0 % [facility] Hemoglobin (Bld) [Mass/Vol] 10.3 g/dL Low 12.0 - 16.0 g/dL [facility] Interpretation and review of laboratory results Abnormal [facility] MCH (RBC) [Entitic mass] 26.3 pg 26.0 - 34.0 pg [facility] MCHC (RBC) [Mass/Vol] 29.3 g/dL Low 31.0 - 37.0 g/dL [facility] MCV (RBC) [Entitic vol] 89.5 fL 80.0 - 100.0 fL [facility] Nucleated RBC (Bld) [#/Vol] 0 10*3/uL [facility] Nucleated RBC/100 WBC (Bld) [Ratio] 0 % [facility] Platelet mean volume (Bld) [Entitic vol] 10.3 fL 9.4 - 12.4 fL [facility] Platelets (Bld) [#/Vol] 194 10*3/uL [facility] RBC (Bld) [#/Vol] 3.92 10*6/uL Low [facility] WBC (Bld) [#/Vol] 7.07 10*3/uL [facility] EKGon 09-22-2024 [facility] LEGIONELLA ANTIGEN, URINEon 09-22-2024 LEGIONELLA ANTIGEN, URINE LEGIONELLA ANTIGEN Negative for Legionella antigen COMMENT: Results may be affected if patient is on diuretics. INTERPRETATION OF RESULTS: Test detects Legionella pneumophilia serogroup 1 antigens in urine. Legionnaires disease cannot be ruled out since other serogroups and species may also cause disease. Normal [facility] Comment on above: Performed By: #### 4 4090 #### LAB [address] [place], [place] [address] Maurice Coello M.D. [id number] Legionella Antigen, UrineOrd ered By: Malgorzata Carlton on 09-22-2024 Interpretation and review of laboratory results Normal [facility] L. pneumophila Ag Ql (U) Negative Negative for Legionella antigen [facility] Comment on above: COMMENT: Results may be affected if patient is on diuretics. INTERPRETATION OF RESULTS: Test detects Legionella pneumophilia serogroup 1 antigens in urine. Legionnaires disease cannot be ruled out since other serogroups and species may also cause disease. [facility] M. pneumoniae IgM Ql (S)Orde red By: Vane Garzon on 09-22-2024 Interpretation and review of laboratory results Normal [facility] M. pneumoniae IgM IA Qn (S) Non-Reactive for Mycoplasma pneumoniae IgM Non-Reactive for Mycoplasma pneumoniae IgM [facility] Interpretation Non-Reactive: Absence of IgM to Mycoplasma pneumoniae or levels below the limit of the assay. [facility] MAGNESIUM LEVELon 09-22-2024 Magnesium [Mass/Vol] 1.9 mg/dL Normal 1.6-2.4 [facility] Comment on above: Performed By: #### 4 6932 #### LAB [address] [place], [place] [address] Maurice Coello M.D. [id number] MRSA DNA Amplified Probeon 1 11-22-2023 MRSA DNA CATRINA+probe Ql (Unsp spec) Negative Not Detected, MRSA NEGATIVE [facility] MRSA DNA CATRINA+probe Ql (Unsp spec)on 09-22-2024 Interpretation and review of laboratory results Normal [facility] Magnesiumon 09-22-2024 Magnesium [Mass/Vol] 1.9 mg/dL 1.6 - 2 .4 mg/dL [facility] Magnesium [Mass/Vol]on 09-22 Interpretation and review of laboratory results Normal [facility] No Panel Informationon 09-22 Interpretation and review of laboratory results Abnormal [facility] PHOSPHORUSon 09-22-2024 Phosphate [Mass/Vol] 4.3 mg/dL High 2.8-4.1 [facility] Comment on above: Performed By: #### 4 6299 #### LAB [address] [place], [place] [address] Maurice Coello M.D. [id number] Phosphoruson 09-22-2024 Phosphate [Mass/Vol] 4.3 mg/dL High 2.8 - 4 .1 mg/dL [facility] S. pneumoniae Urine Antigeno n 09-22-2024 Interpretation and review of laboratory results Normal [facility] S. pneumoniae Ag Ql (U) Negative Pres umptive Negative for Pneumococcal pneumoniae [facility] Comment on above: A negative result cristina ggests no current or recent pneumococcal infection. A negative result does not rule out Streptococcus pneumoniae infection since the antigen present in the sample may be below the detection limit of the test. [facility] S.PNEUMONIAE URINE ANTIGENon 09-22-2024 S.PNEUMONIAE URINE ANTIGEN STREP PNEUMONIAE ANTIGEN, URINE Presumptive Negative for Pneumococcal pneumoniae A negative result suggests no current or recent pneumococcal infection. A negative result does not rule out Streptococcus pneumoniae infection since the antigen present in the sample may be below the detection limit of the test. [facility] Comment on above: Performed By: #### 4 7222 #### LAB [address] [place], [place] [address] Maurice Coello M.D. [id number] SPUTUM AEROBIC CULTUREon SPUTUM AEROBIC CULTURE RESPIRATORY CULTU RE See Gram Stain Result GRAM STAIN RESULT Specimen screened and found unsatisfactory for culture. [facility] Comment on above: Performed By: #### 4 4046 ####[facility] LAB [facility] [address] Arnel Marie M.D. [id number] Sputum Aerobic CultureOrdere d By: Nahum Coello on 09-22-2024 Bacteria identified Aer cx Nom (Sput) See Gram Stain Result [facility] TROPONINon 09-22-2024 TROPONIN T DELTA CHANGE INTERPRETATION Probable non-acute cardiac injury or late presentation of acute injury. [facility] Comment on above: Performed By: #### 4 [id number] #### LAB [address] [address] Maurice Coello M.D. [id number] TROPONIN T DELTA DIFFERENCE -5 ng/L Normal < = -/+ 7 change [facility] Comment on above: Performed By: #### 4 7395 #### LAB [address] [place], [place] [address] Maurice Coello M.D. [id number] TROPONIN T NG/L 15 ng/L Off scale high <=14 [facility] Comment on above: Performed By: #### 4 7395 #### LAB [address] [place], [place] [address] Maurice Coello M.D. [id number] TROPONIN T DELTA CHANGE INTERPRETATION Probable non-acute cardiac injury or late presentation of acute injury. Normal [facility] Comment on above: Performed By: #### 4 [id number] #### LAB [address] [place], [place] [address] Maurice Coello M.D. [id number] TROPONIN T DELTA DIFFERENCE -5 ng/L Normal < = -/+ 7 change [facility] Comment on above: Performed By: #### 4 [id number] #### LAB [address] [place], [place] [address] Maurice Coello M.D. [id number] TROPONIN T NG/L 15 ng/L Off scale high <=14 [facility] Comment on above: Performed By: #### 4 [id number] #### LAB [address] [place], [place] [address] Maurice Coello M.D. [id number] Troponin x 2 (Now and Repeat in 3 hours)on 09-22-2024 Delta Difference Troponin T -5 ng/L < = -/+ 7 change [facility] Inter Troponin T Delta Change Probable non-acute cardiac injury or late presentation of acute injury. [facility] Interpretation and review of laboratory results Abnormal [facility] Troponin T 15 ng/L Critically high NINF - 14 ng/L [facility] Delta Difference Troponin T -5 ng/L < = -/+ 7 change [facility] Inter Troponin T Delta Change Probable non-acute cardiac injury or late presentation of acute injury. [facility] Interpretation and review of laboratory results Abnormal [facility] Troponin T 15 ng/L Critically high NINF - 14 ng/L [facility] BLOOD CULTURE AEROBIC/ANAERO BICon 09-21-2024 BLOOD CULTURE AEROBIC/ANAEROBIC BLOOD CULTURE No Growth after 5 days Normal [facility] Comment on above: Performed By: #### 4 [id number] #### LAB [address] [place], [place] [address] Maurice Coello M.D. [id number] CBC Auto Differentialon 09-06 Basophils (Bld) [#/Vol] 0.07 10*3/uL [facility] Basophils/100 WBC (Bld) 0.7 % [facility] Eosinophils (Bld) [#/Vol] 0.14 10*3/uL [facility] Eosinophils/100 WBC (Bld) 1.5 % [facility] Erythrocyte distribution width (RBC) [Entitic vol] 14.4 % 11.6 - 14.8 % [facility] Hematocrit (Bld) [Volume fraction] 36.7 % 36.0 - 46.0 % [facility] Hemoglobin (Bld) [Mass/Vol] 10.8 g/dL Low 12.0 - 16.0 g/dL [facility] Immature granulocytes (Bld) [#/Vol] 0.03 10*3/uL [facility] Immature granulocytes/100 WBC (Bld) 0.3 % [facility] Comment on above: The IG parameter is the percentage of metamyelocytes, myelocytes and promyelocytes. An immature granulocyte count (IG) of 1% or more suggests the possibility of infection, an IG count of 3% is very likely related to an infection. Interpretation and review of laboratory results Abnormal [facility] Lymphocytes (Bld) [#/Vol] 1.21 10*3/uL [facility] Lymphocytes/100 WBC (Bld) 12.8 % [facility] MCH (RBC) [Entitic mass] 26.3 pg 26.0 - 34.0 pg [facility] MCHC (RBC) [Mass/Vol] 29.4 g/dL Low 31.0 - 37.0 g/dL [facility] MCV (RBC) [Entitic vol] 89.5 fL 80.0 - 100.0 fL [facility] Monocytes (Bld) [#/Vol] 0.62 10*3/uL [facility] Monocytes/100 WBC (Bld) 6.6 % [facility] Neutrophils (Bld) [#/Vol] 7.37 10*3/uL High [facility] Neutrophils/100 WBC (Bld) 78.1 % [facility] Nucleated RBC (Bld) [#/Vol] 0 10*3/uL [facility] Nucleated RBC/100 WBC (Bld) [Ratio] 0 % [facility] Platelet mean volume (Bld) [Entitic vol] 10 fL 9.4 - 12.4 fL [facility] Platelets (Bld) [#/Vol] 249 10*3/uL [facility] RBC (Bld) [#/Vol] 4.1 10*6/uL [facility] alth WBC (Bld) [#/Vol] 9.44 10*3/uL [facility] CBC WITH AUTO DIFFERENTIALon 09-21-2024 AUTO NRBC 0.0 % Normal [facility] Comment on above: Performed By: #### L [id number] #### LAB [address] [place] [address] Maurice Coello M.D. [id number] AUTO NRBC ABS COUNT 0.00 K/mcL Normal 0.00-0.00 [facility] Comment on above: Performed By: #### L [id number] #### LAB [address] [place] [address] Maurice Coello M.D. [id number] BASOPHILS ABSOLUTE COUNT 0.07 K/mcL Normal 0.00-0.30 [facility] Comment on above: Performed By: #### L [id number] #### LAB [address] [place] [address] Maurice Coello M.D. [id number] Basophils/100 WBC (Bld) 0.7 % Normal [facility] Comment on above: Performed By: #### L [id number] #### LAB [address] [place] [address] Maurice Coello M.D. [id number] Eosinophils (Bld) [#/Vol] 0.14 10*3/uL Normal 0.00-0.50 [facility] Comment on above: Performed By: #### L [id number] #### LAB [address] [place] [address] Maurice Coello M.D. [id number] Eosinophils/100 WBC (Bld) 1.5 % Normal [facility] Comment on above: Performed By: #### L [id number] #### LAB [address] [address] Maurice Coello M.D. [id number] Erythrocyte distribution width (RBC) [Ratio] 14.4 % Normal 11.6-14.8 [facility] Comment on above: Performed By: #### L [id number] #### LAB [address] [address] Maurice Coello M.D. [id number] Hematocrit (Bld) [Volume fraction] 36.7 % Normal 36.0-46.0 [facility] Comment on above: Performed By: #### L [id number] #### LAB [address] [address] Maurice Coello M.D. [id number] Hemoglobin (Bld) [Mass/Vol] 10.8 g/dL Low 12.0-16.0 [facility] Comment on above: Performed By: #### L [id number] #### LAB [address] [address] Maurice Coello M.D. [id number] IG ABSOLUTE 0.03 K/mcL Normal 0.00-0.30 [facility] Comment on above: Performed By: #### L [id number] #### LAB [address] [address] Maurice Coello M.D. [id number] IG PERCENT 0.30 % Normal [facility] Comment on above: Result Comment: The IG parameter is the percentage of metamyelocytes, myelocytes and promyelocytes. An immature granulocyte count (IG) of 1% or more suggests the possibility of infection, an IG count of 3% is very likely related to an infection. Performed By: #### L [id number] #### LAB [address] [place] [address] Maurice Coello M.D. [id number] Lymphocytes (Bld) [#/Vol] 1.21 10*3/uL Normal 0.90-4.00 [facility] Comment on above: Performed By: #### L [id number] #### LAB [address] [address] Maurice Coello M.D. [id number] Lymphocytes/100 WBC (Bld) 12.8 % Normal [facility] Comment on above: Performed By: #### L [id number] #### LAB [address] [address] Maurice Coello M.D. [id number] MCH (RBC) [Entitic mass] 26.3 pg Normal 26.0-34.0 [facility] Comment on above: Performed By: #### L [id number] #### LAB [address] [address] Maurice Coello M.D. [id number] MCV (RBC) [Entitic vol] 89.5 fL Normal 80.0-100.0 [facility] Comment on above: Performed By: #### L [id number] #### LAB [address] [place] [address] Maurice Coello M.D. [id number] MEAN CORPUSCULAR HEMOGLOBIN CONC 29.4 g/dL Low 31.0-37.0 [facility] Comment on above: Performed By: #### L [id number] #### LAB [address] [place] [address] Maurice Coello M.D. [id number] Monocytes (Bld) [#/Vol] 0.62 10*3/uL Normal 0.30-0.90 [facility] Comment on above: Performed By: #### L [id number] #### LAB [address] [place] [address] Maurice Coello M.D. [id number] Monocytes/100 WBC (Bld) 6.6 % Normal [facility] Comment on above: Performed By: #### L [id number] #### LAB [address] [place] [address] Maurice Coello M.D. [id number] NEUTROPHILS ABSOLUTE COUNT 7.37 K/mcL High 1.70-7.00 [facility] Comment on above: Performed By: #### L [id number] ####MH LAB [address] [address] Maurice Coello M.D. [id number] Neutrophils/100 WBC (Bld) 78.1 % Normal [facility] Comment on above: Performed By: #### L [id number] ####[facility] LAB [address] [address] Maurice Coello M.D. [id number] Platelet mean volume (Bld) [Entitic vol] 10.0 fL Normal 9.4-12.4 [facility] Comment on above: Performed By: #### L [id number] ####[facility] LAB [address] [address] Maurice Coello M.D. [id number] Platelets (Bld) [#/Vol] 249 10*3/uL Normal 150-400 [facility] Comment on above: Performed By: #### L [id number] ####[facility] LAB [address] [address] Maurice Coello M.D. [id number] RBC (Bld) [#/Vol] 4.10 10*6/uL Normal 4.00-5.20 [facility] Comment on above: Performed By: #### L [id number] ####[facility] LAB [address] [address] Maurice Coello M.D. [id number] WBC (Bld) [#/Vol] 9.44 10*3/uL Normal 4.50-11.00 [facility] Comment on above: Performed By: #### L [id number] ####[facility] LAB [address] [address] Maurice Coello M.D. [id number] CK [Catalytic activity/Vol]o n 09-21-2024 Interpretation and review of laboratory results Abnormal [facility] METABOLIC PANE Jett 09-21-2024 Albumin [Mass/Vol] 4.1 g/dL Normal 3.2-5.2 [facility] Comment on above: Order Comment: Injur y/Trauma or Illness?:Illness/Other How long have you had these symptoms (acute/chronic)?:Acute Reason for exam?:sob. Hx of COPD History of cancer?:unknown Surgeries, chemotherapy, or radiation?:cholecystectomy, hysterectomy, oophrectomy, left knee replacement Type of Exam?:Initial Additional signs and symptoms?:. Performed By: #### 4 [id number] #### LAB [address] [address] Maurice Coello M.D. [id number] ALP [Catalytic activity/Vol] 97 U/L Normal 40-150 [facility] Comment on above: Order Comment: Injur y/Trauma or Illness?:Illness/Other How long have you had these symptoms (acute/chronic)?:Acute Reason for exam?:sob. Hx of COPD History of cancer?:unknown Surgeries, chemotherapy, or radiation?:cholecystectomy, hysterectomy, oophrectomy, left knee replacement Type of Exam?:Initial Additional signs and symptoms?:. Performed By: #### 4 [id number] #### LAB [address] [address] Maurice Coello M.D. [id number] ALT [Catalytic activity/Vol] 23 U/L Normal 0-35 U/L [facility] Comment on above: Order Comment: Injur y/Trauma or Illness?:Illness/Other How long have you had these symptoms (acute/chronic)?:Acute Reason for exam?:sob. Hx of COPD History of cancer?:unknown Surgeries, chemotherapy, or radiation?:cholecystectomy, hysterectomy, oophrectomy, left knee replacement Type of Exam?:Initial Additional signs and symptoms?:. Performed By: #### 4 61 #### LAB [address] [address] Maurice Coello M.D. [id number] Anion gap [Moles/Vol] 15 mmol/L Normal 10-20 [facility] Comment on above: Order Comment: Injur y/Trauma or Illness?:Illness/Other How long have you had these symptoms (acute/chronic)?:Acute Reason for exam?:sob. Hx of COPD History of cancer?:unknown Surgeries, chemotherapy, or radiation?:cholecystectomy, hysterectomy, oophrectomy, left knee replacement Type of Exam?:Initial Additional signs and symptoms?:. Performed By: #### 4 61 #### LAB [address] [address] Maurice Coello M.D. [id number] AST [Catalytic activity/Vol] 47 U/L High 0-35 U/L [facility] Comment on above: Order Comment: Injur y/Trauma or Illness?:Illness/Other How long have you had these symptoms (acute/chronic)?:Acute Reason for exam?:sob. Hx of COPD History of cancer?:unknown Surgeries, chemotherapy, or radiation?:cholecystectomy, hysterectomy, oophrectomy, left knee replacement Type of Exam?:Initial Additional signs and symptoms?:. Result Comment: Slig htly Hemolyzed Performed By: #### 4 6103 #### LAB [address] [address] Maurice Coello M.D. [id number] Bilirubin [Mass/Vol] 0.2 mg/dL Normal 0.0-1.3 [facility] Comment on above: Order Comment: Injur y/Trauma or Illness?:Illness/Other How long have you had these symptoms (acute/chronic)?:Acute Reason for exam?:sob. Hx of COPD History of cancer?:unknown Surgeries, chemotherapy, or radiation?:cholecystectomy, hysterectomy, oophrectomy, left knee replacement Type of Exam?:Initial Additional signs and symptoms?:. Performed By: #### 4 6126 #### LAB [address] [address] Maurice Coello M.D. [id number] Calcium [Mass/Vol] 8.8 mg/dL Normal 8.4-10.2 [facility] Comment on above: Order Comment: Injur y/Trauma or Illness?:Illness/Other How long have you had these symptoms (acute/chronic)?:Acute Reason for exam?:sob. Hx of COPD History of cancer?:unknown Surgeries, chemotherapy, or radiation?:cholecystectomy, hysterectomy, oophrectomy, left knee replacement Type of Exam?:Initial Additional signs and symptoms?:. Performed By: #### 4 0406 #### LAB [address] [address] Maurice Coello M.D. [id number] Chloride [Moles/Vol] 94 mmol/L Low 98-108 [facility] Comment on above: Order Comment: Injur y/Trauma or Illness?:Illness/Other How long have you had these symptoms (acute/chronic)?:Acute Reason for exam?:sob. Hx of COPD History of cancer?:unknown Surgeries, chemotherapy, or radiation?:cholecystectomy, hysterectomy, oophrectomy, left knee replacement Type of Exam?:Initial Additional signs and symptoms?:. Performed By: #### 4 6126 #### LAB [address] [address] Maurice Coello M.D. [id number] Creatinine [Mass/Vol] 1.72 mg/dL High 0.60-1.10 [facility] Comment on above: Order Comment: Injur y/Trauma or Illness?:Illness/Other How long have you had these symptoms (acute/chronic)?:Acute Reason for exam?:sob. Hx of COPD History of cancer?:unknown Surgeries, chemotherapy, or radiation?:cholecystectomy, hysterectomy, oophrectomy, left knee replacement Type of Exam?:Initial Additional signs and symptoms?:. Performed By: #### 4 5552 #### LAB [address] [address] Maurice Coello M.D. [id number] EGFR 32 mL/min/1.73 m2 Low >=60 [facility] Comment on above: Order Comment: Injur y/Trauma or Illness?:Illness/Other How long have you had these symptoms (acute/chronic)?:Acute Reason for exam?:sob. Hx of COPD History of cancer?:unknown Surgeries, chemotherapy, or radiation?:cholecystectomy, hysterectomy, oophrectomy, left knee replacement Type of Exam?:Initial Additional signs and symptoms?:. Result Comment: Ericka mated GFR was calculated using the 2020 CKD-EPI creatinine equation. Performed By: #### 4 6147 #### LAB [address] [address] Maurice Coello M.D. [id number] Glucose [Mass/Vol] 102 mg/dL High 65-99 [facility] Comment on above: Order Comment: Injur y/Trauma or Illness?:Illness/Other How long have you had these symptoms (acute/chronic)?:Acute Reason for exam?:sob. Hx of COPD History of cancer?:unknown Surgeries, chemotherapy, or radiation?:cholecystectomy, hysterectomy, oophrectomy, left knee replacement Type of Exam?:Initial Additional signs and symptoms?:. Performed By: #### 4 6126 #### LAB [address] [address] Maurice Coello M.D. [id number] HCO3 (Bld) [Moles/Vol] 30 mmol/L Normal 21-32 [facility] Comment on above: Order Comment: Injur y/Trauma or Illness?:Illness/Other How long have you had these symptoms (acute/chronic)?:Acute Reason for exam?:sob. Hx of COPD History of cancer?:unknown Surgeries, chemotherapy, or radiation?:cholecystectomy, hysterectomy, oophrectomy, left knee replacement Type of Exam?:Initial Additional signs and symptoms?:. Performed By: #### 4 6126 #### LAB [address] [address] Maurice Coello M.D. [id number] Potassium [Moles/Vol] 5.8 mmol/L High 3.5-5.1 [facility] Comment on above: Order Comment: Injur y/Trauma or Illness?:Illness/Other How long have you had these symptoms (acute/chronic)?:Acute Reason for exam?:sob. Hx of COPD History of cancer?:unknown Surgeries, chemotherapy, or radiation?:cholecystectomy, hysterectomy, oophrectomy, left knee replacement Type of Exam?:Initial Additional signs and symptoms?:. Result Comment: Slig htly Hemolyzed Performed By: #### 4 6169 #### LAB [address] [address] Maurice Coello M.D. [id number] Protein [Mass/Vol] 7.3 g/dL Normal 6.0-8.0 [facility] Comment on above: Order Comment: Injur y/Trauma or Illness?:Illness/Other How long have you had these symptoms (acute/chronic)?:Acute Reason for exam?:sob. Hx of COPD History of cancer?:unknown Surgeries, chemotherapy, or radiation?:cholecystectomy, hysterectomy, oophrectomy, left knee replacement Type of Exam?:Initial Additional signs and symptoms?:. Performed By: #### 4 6126 #### LAB [address] [address] Maurice Coello M.D. [id number] Sodium [Moles/Vol] 133 mmol/L Low 135-145 [facility] Comment on above: Order Comment: Injur y/Trauma or Illness?:Illness/Other How long have you had these symptoms (acute/chronic)?:Acute Reason for exam?:sob. Hx of COPD History of cancer?:unknown Surgeries, chemotherapy, or radiation?:cholecystectomy, hysterectomy, oophrectomy, left knee replacement Type of Exam?:Initial Additional signs and symptoms?:. Performed By: #### 4 6126 #### LAB [address] [address] Maurice Coello M.D. [id number] Urea nitrogen [Mass/Vol] 32 mg/dL High 8-25 [facility] Comment on above: Order Comment: Injur y/Trauma or Illness?:Illness/Other How long have you had these symptoms (acute/chronic)?:Acute Reason for exam?:sob. Hx of COPD History of cancer?:unknown Surgeries, chemotherapy, or radiation?:cholecystectomy, hysterectomy, oophrectomy, left knee replacement Type of Exam?:Initial Additional signs and symptoms?:. Performed By: #### 4 6126 #### LAB [address] [address] Maurice Coello M.D. [id number] Urea nitrogen/Creatinine [Mass ratio] 18.6 mg/mg Normal 10.0-20.0 [facility] Comment on above: Order Comment: Injur y/Trauma or Illness?:Illness/Other How long have you had these symptoms (acute/chronic)?:Acute Reason for exam?:sob. Hx of COPD History of cancer?:unknown Surgeries, chemotherapy, or radiation?:cholecystectomy, hysterectomy, oophrectomy, left knee replacement Type of Exam?:Initial Additional signs and symptoms?:. Performed By: #### 4 6126 ####[facility] LAB [address] [place], [place] [address] Maurice Coello M.D. [id number] CPKon 09-21-2024 CPK 713 U/L High 40-170 [facility] Comment on above: Performed By: #### 4 7395 #### LAB [address] [place], [place] [address] Maurice Coello M.D. [id number] CPK NO MBon 09-21-2024 CK [Catalytic activity/Vol] 713 U/L High 40 - 170 U/L [facility] Comprehensive metabolic 2000 panelOrdered By: Michael Galvez on 09-21-2024 Albumin [Mass/Vol] 4.1 g/dL 3.2 - 5.2 g/dL [facility] ALP [Catalytic activity/Vol] 97 U/L 40 - 150 U/L [facility] ALT [Catalytic activity/Vol] 23 U/L 0-35 U/L [facility] Anion gap [Moles/Vol] 15 mmol/L 10 - 2 0 mmol/L [facility] AST [Catalytic activity/Vol] 47 U/L High 0-35 U/L [facility] Comment on above: Slightly Hemolyzed Bilirubin [Mass/Vol] 0.2 mg/dL 0.0 - 1 .3 mg/dL [facility] Calcium [Mass/Vol] 8.8 mg/dL 8.4 - 10. 2 mg/dL [facility] Chloride [Moles/Vol] 94 mmol/L Low 98 - 10 8 mmol/L [facility] Creatinine [Mass/Vol] 1.72 mg/dL High 0.60 - 1.10 mg/dL [facility] GFR/1.73 sq M.predicted CKD-EPI (S/P/Bld) [Vol rate/Area] 32 Low - PINF [facility] Comment on above: Estimated GFR was ca lculated using the 2020 CKD-EPI creatinine equation. Glucose [Mass/Vol] 102 mg/dL High 65 - 99 mg/dL [facility] HCO3 [Moles/Vol] 30 mmol/L 21 - 32 mmol/L [facility] Potassium [Moles/Vol] 5.8 mmol/L High 3.5 - 5.1 mmol/L [facility] Comment on above: Slightly Hemolyzed Protein [Mass/Vol] 7.3 g/dL 6.0 - 8.0 g/dL [facility] Sodium [Moles/Vol] 133 mmol/L Low 135 - 145 mmol/L [facility] Urea nitrogen [Mass/Vol] 32 mg/dL High 8 - 25 mg/dL [facility] Urea nitrogen/Creatinine [Mass ratio] 18.6 mg/mg 10.0 - 20.0 [facility] has implemented the eGFR calculation approach that does not have a coefficient for race that conforms to the NKF-ASN Task Force Recommendations. [facility] ED Prov Noteon 09-21-2024 ED Prov Note [facility] ED note NAME: Radha Shafer 64 y.o. CSN: [id number] PCP: No, Physician History: Chief Complaint: Shortness [...] Angiogram; Surgeon: Tor Long MD; Location: [employer]; Service: Cardiovascular CARDIOVASCULAR STRESS TEST CHOLECYSTECTOMY COLONOSCOPY with biopsies COLONOSCOPY N/A 02/17/2022 Procedure: COLONOSCOPY; Surgeon: Jada Vargas MD; [place] [facility] [place]; Service: Colorectal EGD N/A 08/15/2022 Procedure: ESOPHAGOGASTRODUODENOSC OPY WITH BIOPSY; Surgeon: Tyshawn Santos MD; Location: Endo; Service: Gastroenterology GALLBLADDER HC LEFT HEART CATH N/A 09/26/2022 Procedure: Left Heart Cath; Surgeon: Tor Long MD; Location: [employer]; Service: Cardiovascular HYSTERECTOMY JOINT REPLACEMENT Left knee ORTHOPEDIC SURGERY r wrist surgery, left ankle, right rotator cuff ROTATOR CUFF REPAIR Right SIGMOIDOSCOPY FLEXIBLE N/A 06/23/2022 Procedure: SIGMOIDOSCOPY FLEXIBLE WITH BIOPSY; Surgeon: Tyshawn Santso MD; Location: Endo; Service: Gastroenterology THYROIDECTOMY N/A 07/15/2015 Procedure: TOTAL THYROIDECTOMY; Surgeon: Lopez Alonso MD; Location: [facility]; Service: US ECHO TRANSTHORACIC FOLLOWUP [...] Socioeconomic History Marital status: Occupational History 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 Normal [facility] EKG 12-leadon 09-21-2024 Atrial Rate 75 BPM [facility] P Tollhouse 74 degrees [facility] P-R Interval 152 ms [facility] Q-T Interval 362 ms [facility] QRS Duration 90 ms [facility] QTC Calculation (Bezet) 404 ms [facility] R [place] 34 degrees [facility] T Tollhouse 65 degrees [facility] Ventricular Rate 75 BPM [facility] th Normal sinus rhythm Normal ECG ECG Cart Interpretation see physician note for interpretation. Confirmed by Rasheeda Bedolla ([id number]) on 09/21/2024 8:48:03 PM [facility] MRSA DNA AMPLIFIED PROBEon 1 11-21-2023 MRSA DNA AMPLIFIED PROBE Negative Normal Not Detected, MRSA NEGATIVE [facility] Comment on above: Performed By: #### 4 8061 #### LAB [address] [place], [place] [address] Maurice Coello M.D. [id number] MYCOPLASMA PNEUMONIAE ANTIBO DY, IGMon 09-21-2024 MYCOPLASMA PNEUMONIAE IGM Non-Reactive for Mycoplasma pneumoniae IgM Normal Non-Reactive for Mycoplasma pneumoniae IgM [facility] Comment on above: Order Comment: Inter pretationNon-Reactive: Absence of IgM to Mycoplasma pneumoniae or levels below the limit of the assay. Performed By: #### 4 [id number] ####[facility] [address], [place] [address] Arnel Marie M.D. [id number] No Panel Informationon 09-21 Extra Tube Hold for add-ons. [facility] Comment on above: Auto resulted. [facility] No Panel InformationOrdered By: Michael Galvez on 09-21-2024 Interpretation and review of laboratory results Abnormal [facility] POC VENOUS BLOOD GAS PANEL-P SHAW Lindquist 09-21-2024 BASE EXCESS, VENOUS 5.2 High -2.0-2.0 [facility] Comment on above: Performed By: #### 4 6938 #### [facility] [address] [address] Maurice Coello M.D. [id number] FIO2 36 [facility] Comment on above: Performed By: #### 4 6973 #### [facility] [address] [address] Maurice Coello M.D. [id number] HCO3 (Bld) [Moles/Vol] 33.6 mmol/L High 24.0-28.0 [facility] Comment on above: Performed By: #### 4 2559 #### [facility] [address] [address] Maurice oCello M.D. [id number] Hematocrit (Bld) [Volume fraction] 38.6 % Normal 36.0-46.0 [facility] Comment on above: Performed By: #### 4 2494 #### [facility] [address] [address] Maurice Coello M.D. [id number] Hemoglobin (Bld) [Mass/Vol] 12.6 g/dL Normal 12.0-16.0 [facility] Comment on above: Performed By: #### 4 6218 #### [facility] [address] [address] Maurice Coello M.D. [id number] LITER FLOW 4 [facility] Comment on above: Performed By: #### 4 6298 #### [facility] [address] [address] Maurice Coello M.D. [id number] Oxygen saturation in Blood 94.8 % High 40.0-70.0 [facility] Comment on above: Performed By: #### 4 3804 #### [facility] [address] [id number] Maurice Coello M.D. [id number] PCO2 VENOUS 67.4 mm Hg High 41.0-51.0 [facility] Comment on above: Performed By: #### 4 6932 #### LAB [address] [address] Maurice Coello M.D. [id number] PH VENOUS 7.31 Low 7.32-7.42 [facility] Comment on above: Performed By: #### 4 6932 #### LAB [address] [address] Maurice Coello M.D. [id number] PO2 VENOUS 76 mm Hg High 25-40 [facility] Comment on above: Performed By: #### 4 6932 #### LAB [address] [address] Maurice Coello M.D. [id number] SPECIMEN SOURCE RADIANCE Radial, right Normal [facility] Comment on above: Performed By: #### 4 6932 #### LAB [address] [address] Maurice Coello M.D. [id number] POC Venous Blood Gas Panel-P [facility] 09-21-2024 Base excess Calc (BldV) [Moles/Vol] 5.2 mmol/L High -2.0 - 2.0 [facility] CO2 (BldV) [Partial pressure] 67.4 mm[Hg] High [facility] Hematocrit (BldA) [Volume fraction] 38.6 % 36.0 - 46.0 % [facility] Inhaled oxygen concentration 36 % [facility] Inhaled oxygen flow rate 4 L/min [facility] Interpretation and review of laboratory results Abnormal [facility] Oxygen (BldV) [Partial pressure] 76 mm[Hg] High [facility] Oxygen saturation in Venous blood 94.8 % High 40.0 - 70.0 % [facility] pH (BldV) 7.31 [pH] Low 7.32 - 7.42 [facility] Specimen source Nom (Unsp spec) Radial, right [facility] PROCALCITONINon 09-21-2024 PROCALCITONIN 0.14 ng/ml Normal <0.50 [facility] Comment on above: Order Comment: Resul ts <0.50 ng/ml represent a low risk of severe sepsis and/or septic shock. Performed By: #### 4 6932 #### LAB [address] [place], [place] [address] Maurice Coello M.D. [id number] Procalcitoninon 09-21-2024 Procalcitonin [Mass/Vol] 0.14 ng/mL NINF - 0.50 ng/ml [facility] Procalcitonin [Mass/Vol]on 11-21-2023 Interpretation and review of laboratory results Normal [facility] Results <0.50 ng/ml represent a low risk of severe sepsis and/or septic shock. [facility] TROPONINon 09-21-2024 BASELINE TROPONIN T NG/L 20 ng/L Off scale high <=14 [facility] Comment on above: Performed By: #### 4 6608 #### LAB [address] [place], [place] [address] Maurice Coello M.D. [id number] TROPONIN T INTERPRETATION Possible acute cardiac injury. Normal [facility] Comment on above: Performed By: #### 4 6608 #### LAB [address] [place], [place] [address] Maurice Coello M.D. [id number] TroponinOrdered By: Carole hughes on 09-21-2024 Troponin T 20 ng/L Critically high NINF - 14 ng/L [facility] Troponin T Interpretation Possible acute cardiac injury. [facility] XR CHEST PA/APon 09-21-2024 XR [...] Sep 21, 2024 10:47:11 PM EST Normal [facility] Comment on above: Order Comment: Injur y/Trauma or Illness?:Illness/Other How long have you had these symptoms (acute/chronic)?:Acute Reason for exam?:sob. Hx of COPD History of cancer?:unknown Surgeries, chemotherapy, or radiation?:cholecystectomy, hysterectomy, oophrectomy, left knee replacement Type of Exam?:Initial Additional signs and symptoms?:. XR Chest PA and Abdomen APon 09-21-2024 No acute cardiopulmonary process. Stable chest x-ray. Workstation ID: [id number] [facility] EXAMINATION: XR CHEST PA/AP HISTORY: [...] unremarkable. Multiple calcified granulomas are again seen. [facility] Paco Downs MD - 09/21/2024 EXAMINATION: XR [...] Stable chest x-ray. Workstation ID: [id number] [facility] Radiology Study observation (narrative) [facility] XR Chest PA and Abdomen APOr dered By: Paco Downs on 09-21-2024 [facility] Work Phone: Basic metabolic 2000 panelon 09-03-2024 Anion gap [Moles/Vol] 15 mmol/L 10 - 2 0 mmol/L [facility] Calcium [Mass/Vol] 9.1 mg/dL 8.4 - 10. 2 mg/dL [facility] Chloride [Moles/Vol] 98 mmol/L 98 - 10 8 mmol/L [facility] Creatinine [Mass/Vol] 1.61 mg/dL High 0.60 - 1.10 mg/dL [facility] GFR/1.73 sq M.predicted CKD-EPI (S/P/Bld) [Vol rate/Area] 35 Low - PINF [facility] Comment on above: Estimated GFR was ca lculated using the 2020 CKD-EPI creatinine equation. Glucose [Mass/Vol] 120 mg/dL High 65 - 99 mg/dL [facility] HCO3 [Moles/Vol] 25 mmol/L 21 - 32 mmol/L [facility] Interpretation and review of laboratory results Abnormal [facility] Potassium [Moles/Vol] 5.7 mmol/L High 3.5 - 5.1 mmol/L [facility] Sodium [Moles/Vol] 132 mmol/L Low 135 - 145 mmol/L [facility] Urea nitrogen [Mass/Vol] 35 mg/dL High 8 - 25 mg/dL [facility] Urea nitrogen/Creatinine [Mass ratio] 21.7 mg/mg High 10.0 - 20.0 [facility] has implemented the eGFR calculation approach that does not have a coefficient for race that conforms to the NKF-ASN Task Force Recommendations. [facility] CBC Auto Differentialon 08-07 Basophils (Bld) [#/Vol] 0.02 10*3/uL [facility] Basophils/100 WBC (Bld) 0.2 % [facility] Eosinophils (Bld) [#/Vol] 0 10*3/uL [facility] Eosinophils/100 WBC (Bld) 0 % [facility] Erythrocyte distribution width (RBC) [Entitic vol] 14.4 % 11.6 - 14.8 % [facility] Hematocrit (Bld) [Volume fraction] 35.3 % Low 36.0 - 46.0 % [facility] Hemoglobin (Bld) [Mass/Vol] 10.6 g/dL Low 12.0 - 16.0 g/dL [facility] Immature granulocytes (Bld) [#/Vol] 0.06 10*3/uL [facility] Immature granulocytes/100 WBC (Bld) 0.7 % [facility] Comment on above: The IG parameter is the percentage of metamyelocytes, myelocytes and promyelocytes. An immature granulocyte count (IG) of 1% or more suggests the possibility of infection, an IG count of 3% is very likely related to an infection. Interpretation and review of laboratory results Abnormal [facility] Lymphocytes (Bld) [#/Vol] 0.6 10*3/uL Low [facility] Lymphocytes/100 WBC (Bld) 7.4 % [facility] MCH (RBC) [Entitic mass] 25.9 pg Low 26.0 - 34.0 pg [facility] MCHC (RBC) [Mass/Vol] 30 g/dL Low 31.0 - 37.0 g/dL [facility] MCV (RBC) [Entitic vol] 86.1 fL 80.0 - 100.0 fL [facility] Monocytes (Bld) [#/Vol] 0.22 10*3/uL Low [facility] Monocytes/100 WBC (Bld) 2.7 % [facility] Neutrophils (Bld) [#/Vol] 7.26 10*3/uL High [facility] Neutrophils/100 WBC (Bld) 89 % [facility] Nucleated RBC (Bld) [#/Vol] 0 10*3/uL [facility] Nucleated RBC/100 WBC (Bld) [Ratio] 0 % [facility] Platelet mean volume (Bld) [Entitic vol] 10.5 fL 9.4 - 12.4 fL [facility] Platelets (Bld) [#/Vol] 229 10*3/uL [facility] RBC (Bld) [#/Vol] 4.1 10*6/uL [facility] alth WBC (Bld) [#/Vol] 8.16 10*3/uL [facility] E[facility] 12-leadon 09-03-2024 Atrial Rate 75 BPM [facility] P Tollhouse 60 degrees [facility] P-R Interval 166 ms [facility] Q-T Interval 378 ms [facility] QRS Duration 104 ms [facility] QTC Calculation (Bezet) 422 ms [facility] R [place] 28 degrees [facility] T Tollhouse 46 degrees [facility] Ventricular Rate 75 BPM [facility] Normal sinus rhythm Normal ECG ECG Cart Interpretation see physician note for interpretation. Confirmed by Rasheeda Bedolla ([id number]) on 09/03/2024 3:10:10 PM MUSE [facility] Basic metabolic 2000 panelon 09-02-2024 Anion gap [Moles/Vol] 17 mmol/L 10 - 2 0 mmol/L [facility] Calcium [Mass/Vol] 9.1 mg/dL 8.4 - 10. 2 mg/dL [facility] Chloride [Moles/Vol] 99 mmol/L 98 - 10 8 mmol/L [facility] Creatinine [Mass/Vol] 2.09 mg/dL High 0.60 - 1.10 mg/dL [facility] GFR/1.73 sq M.predicted CKD-EPI (S/P/Bld) [Vol rate/Area] 26 Low - PINF [facility] Comment on above: Estimated GFR was ca lculated using the 2020 CKD-EPI creatinine equation. Glucose [Mass/Vol] 112 mg/dL High 65 - 99 mg/dL [facility] HCO3 [Moles/Vol] 27 mmol/L 21 - 32 mmol/L [facility] Interpretation and review of laboratory results Abnormal [facility] Potassium [Moles/Vol] 5.2 mmol/L High 3.5 - 5.1 mmol/L [facility] Sodium [Moles/Vol] 138 mmol/L 135 - 145 mmol/L [facility] Urea nitrogen [Mass/Vol] 37 mg/dL High 8 - 25 mg/dL [facility] Urea nitrogen/Creatinine [Mass ratio] 17.7 mg/mg 10.0 - 20.0 [facility] has implemented the eGFR calculation approach that does not have a coefficient for race that conforms to the NKF-ASN Task Force Recommendations. [facility] CBC Auto Differentialon 08-07 Basophils (Bld) [#/Vol] 0.07 10*3/uL [facility] Basophils/100 WBC (Bld) 1 % [facility] Eosinophils (Bld) [#/Vol] 0.12 10*3/uL [facility] Eosinophils/100 WBC (Bld) 1.7 % [facility] Erythrocyte distribution width (RBC) [Entitic vol] 14.5 % 11.6 - 14.8 % [facility] Hematocrit (Bld) [Volume fraction] 40.6 % 36.0 - 46.0 % [facility] Hemoglobin (Bld) [Mass/Vol] 11.9 g/dL Low 12.0 - 16.0 g/dL [facility] Immature granulocytes (Bld) [#/Vol] 0.01 10*3/uL [facility] Immature granulocytes/100 WBC (Bld) 0.1 % [facility] Comment on above: The IG parameter is the percentage of metamyelocytes, myelocytes and promyelocytes. An immature granulocyte count (IG) of 1% or more suggests the possibility of infection, an IG count of 3% is very likely related to an infection. Interpretation and review of laboratory results Abnormal [facility] Lymphocytes (Bld) [#/Vol] 0.98 10*3/uL [facility] Lymphocytes/100 WBC (Bld) 14 % [facility] MCH (RBC) [Entitic mass] 25.8 pg Low 26.0 - 34.0 pg [facility] MCHC (RBC) [Mass/Vol] 29.3 g/dL Low 31.0 - 37.0 g/dL [facility] MCV (RBC) [Entitic vol] 88.1 fL 80.0 - 100.0 fL [facility] Monocytes (Bld) [#/Vol] 0.41 10*3/uL [facility] Monocytes/100 WBC (Bld) 5.8 % [facility] Neutrophils (Bld) [#/Vol] 5.43 10*3/uL [facility] Neutrophils/100 WBC (Bld) 77.4 % [facility] Nucleated RBC (Bld) [#/Vol] 0 10*3/uL [facility] Nucleated RBC/100 WBC (Bld) [Ratio] 0 % [facility] Platelet mean volume (Bld) [Entitic vol] 10.6 fL 9.4 - 12.4 fL [facility] Platelets (Bld) [#/Vol] 298 10*3/uL [facility] RBC (Bld) [#/Vol] 4.61 10*6/uL [facility] ealth WBC (Bld) [#/Vol] 7.02 10*3/uL [facility] CK [Catalytic activity/Vol]o n 09-02-2024 Interpretation and review of laboratory results Abnormal [facility] CPK NO MBon 09-02-2024 CK [Catalytic activity/Vol] 659 U/L High 40 - 170 U/L [facility] EKGon 09-02-2024 [facility] INR Coag (PPP) [Relative pablo e]on 09-02-2024 Interpretation and review of laboratory results Normal [facility] PT Coag (PPP) [Time] 12.5 s [facility] During the induction phase of oral anticoagulation, the INR may not reflect the anticoagulation status of the patient. Therapeutic ranges for INR's are: Most clinical situations: INR 2.0-3.0 Mechanical Prosthetic Valve: INR 2.5-3.5 Critical: INR >5.0 [facility] Influenza virus A and B RNA and SARS-CoV-2 (COVID-19) N gene panel CATRINA+probe (Resp)Ordered By: Mahogany Schultz on 09-02-2024 FLUAV RNA CATRINA+probe Ql (Unsp spec) Not detected Not Detected [facility] FLUBV RNA CATRINA+probe Ql (Unsp spec) Not detected Not Detected [facility] Interpretation and review of laboratory results Normal [facility] SARS-CoV-2 (COVID-19) RNA CATRINA+probe Ql (Resp) Not detected Not Detected [facility] POC Arterial Blood Gas Panel -Pulmon 09-02-2024 Alveolar-arterial oxygen Partial pressure difference 85.7 mm Hg [facility] Base excess Calc (Bld) [Moles/Vol] 0 mmol/L -2.0 - 2.0 [facility] CO2 (Bld) [Partial pressure] 53.5 mm[Hg] High [facility] HCO3 (Bld) [Moles/Vol] 26.9 mmol/L High 22.0 - 26.0 mmol/L [facility] Hematocrit (BldA) [Volume fraction] 36 % 36.0 - 46.0 % [facility] Hemoglobin (Bld) [Mass/Vol] 11.8 g/dL Low 12.0 - 16.0 g/dL [facility] Inhaled oxygen concentration 35 % [facility] Interpretation and review of laboratory results Abnormal [facility] Oxygen (Bld) [Partial pressure] 94 mm[Hg] High [facility] pH (Bld) 7.31 [pH] Low 7.35 - 7.45 [facility] Specimen source Nom (Unsp spec) Brachial, left [facility] POC Venous Blood Gas Panel-P ulmon 09-02-2024 Base excess Calc (BldV) [Moles/Vol] -0.2000 mmol/L -2.0 - 2.0 [facility] CO2 (BldV) [Partial pressure] 67.6 mm[Hg] High [facility] HCO3 (Bld) [Moles/Vol] 28.8 mmol/L High 24.0 - 28.0 mmol/L [facility] Hematocrit (BldA) [Volume fraction] 38 % 36.0 - 46.0 % [facility] Hemoglobin (Bld) [Mass/Vol] 12.4 g/dL 12.0 - 16.0 g/dL [facility] Inhaled oxygen concentration 36 % [facility] Inhaled oxygen flow rate 4 L/min [facility] Interpretation and review of laboratory results Abnormal [facility] Oxygen (BldV) [Partial pressure] 46 mm[Hg] High [facility] Oxygen saturation in Venous blood 78 % High 40.0 - 70.0 % [facility] pH (BldV) 7.24 [pH] Low 7.32 - 7.42 [facility] Specimen source Nom (Unsp spec) Not specified [facility] PT/INRon 09-02-2024 INR Coag (PPP) [Relative time] 0.9 {INR} 0.8 - 1.1 [facility] Troponin x 2 (Now and Repeat in 3 hours)Ordered By: Bhumi Teixeira on 09-02-2024 Delta Difference Troponin T -4 ng/L < = -/+ 7 change [facility] Interp Troponin T Delta Change Probable non-acute cardiac injury or late presentation of acute injury. [facility] Troponin T 14 ng/L NINF - 14 ng/L [facility] Troponin x 2 (Now and Repeat in 3 hours)Ordered By: Sunita Rodriguez on 09-02-2024 Interpretation and review of laboratory results Abnormal [facility] Troponin T 18 ng/L Critically high NINF - 14 ng/L [facility] Troponin T Interpretation Possible acute cardiac injury. [facility] Ultrasound duplex venous leg lefton 09-02-2024 Patient Info Name: RADHA SHAFER Age: 64 years : 1960 Gender: Female Exam Date: 09/02/2024 1:42 PM Patient Status: Inpatient Mobile Product Manager: Prema Hale RVT Referring Physician: OLIVIA Contreras; Indications R60.0 - Localized edema Procedure Description 28488 Duplex examination using B-mode, color and spectral [...] - Small Saphenous: - - FUJI SYNAPSE CV Tadeo Hoang MD - 09/02/2024 Patient Info Name: RADHA SHAFER Age: 64 years : 1960 Gender: Female Exam Date: 09/02/2024 1:42 PM Patient Status: Inpatient Mobile Product Manager: Prema Hale RVT Referring Physician: OLIVIA Contreras; Indications R60.0 - Localized edema Procedure Description 89038 Duplex examination using B-mode, color and spectral [...] Saphenous: - Small Saphenous: - - [facility] UrinalysisOrdered By: Nicol Perez on 09-02-2024 Bacteria Auto Ql (U) None Seen None Se en /hpf [facility] Bilirubin Ql (U) Negative Negative [facility] th Clarity Refractometry automated (U) Clear Clear [facility] Color (U) Colorless Colorless, Yellow [facility] Epithelial cells.squamous Auto (Urine sed) [#/Area] [facility] Glucose Auto test strip (U) [Mass/Vol] Negative Negative mg/dL [facility] Hemoglobin Auto test strip Ql (U) Small Abnormal Negative [facility] Interpretation and review of laboratory results Abnormal [facility] Ketones (U) [Mass/Vol] Negative Negat radha mg/dL [facility] Leukocyte esterase Auto test strip Ql (U) Negative Negative [facility] Mucus Auto (Urine sed) [#/Area] Rare None Seen, Rare /lpf [facility] Nitrite Auto test strip Ql (U) Negative Negative [facility] pH (U) 5 [pH] 5.0 - 7.0 [facility] Protein (U) [Mass/Vol] Negative Negat radha mg/dL [facility] Specific gravity (U) [Rel density] 1.008 1.005 - 1.025 [facility] Urobilinogen (U) [Mass/Vol] mg/dL NINF - 2.0 mg/dL [facility] WBC Auto (Urine sed) [#/Area] 3 [facility] Microscopic examinat ion is performed on all urinalysis samples and only positive findings are reported. The test for blood on the chemical analytic portion of urinalysis may also be positive due to hemoglobinuria and myoglobinuria and if red blood cells are present they are quantified by microscopic examination. [facility] VBG (obtain and perform)on [facility] XR Chest PA and Abdomen APon 09-02-2024 No acute cardiopulmonary process. [facility] Workstation ID: [id number] [employer] EXAMINATION: XR CHEST PA/AP HISTORY: ORDERING SYSTEM [...] normal in size. Bony thorax is unremarkable. [facility] Maria Victoria Day, DO - 09/02/2024 EXAMINATION: [...] is unremarkable. IMPRESSION: No acute cardiopulmonary process. [facility] Workstation ID: [id number] [facility] Radiology Study observation (narrative) [facility] XR Chest PA and Abdomen APOr dered By: Maria Victoria Day on 09-02-2024 [facility] Work Phone: XR Knee - left 2 [employer]son No acute osseous abnormality. Intact total knee replacement. ST/lab Workstation ID: [id number] [employer] RIS EXAMINATION: XR KNEE LEFT 2 VIEWS [...] the lateral view. No significant joint effusion. [facility] Xavier, Africatuan Claudeglo alexis, DO - 09/02/2024 EXAMINATION: XR KNEE LEFT [...] replacement. ST/lab Workstation ID: [id number] [facility] Radiology Study observation (narrative) [facility] Basophil percentageOrdered B y: Jennifer Supply on 04-25-2024 Bilirubin [Mass/Vol] 0.20 mg/dL 0.20-1.00 [facility] Comment on above: For patients on eltr ombopag therapy, use of [facility] [place] TBIL is not recommended. Chloride [Moles/Vol] 104 mmol/L 98-107 [facility] Glucose [Mass/Vol] 137 mg/dL 74-106 [facility] Comment on above: Fasting Glucose resu lt greater than or equal to 126 mg/dL suggests DIABETES MELLITUS per A.D.A. criteria. Potassium [Moles/Vol] 4.7 mmol/L 3.5-5.1 [facility] Protein [Mass/Vol] 7.9 g/dL 6.4-8.2 [facility] Sodium [Moles/Vol] 138 mmol/L 136-145 [facility] Laboratory - Chemistry and C hemistry - challengeOrdered By: Jennifer Gordon on 02-29-2024 Albumin/Globulin [Mass ratio] 0.8 {ratio} 0.9-2.[address] [facility] ALP [Catalytic activity/Vol] 85 U/L 45-[address] [facility] ALT [Catalytic activity/Vol] 29 U/L 13-[address] [facility] CO2 [Moles/Vol] 26.0 mmol/L 21.0-32.[address] [facility] Globulin (S) [Mass/Vol] 4.4 g/dL 2.2-4.2 [facility] [place] Urea nitrogen/Creatinine [Mass ratio] 10.6 mg/mg 10-[address] [facility] No Panel InformationOrdered By: Jennifer Gordon on 02-29-2024 Estimated GFR (MDRD) Amer 34 mL/min >[address] [facility] Comment on above: GFR Calc Estimated GFR (MDRD) Non-Af Amer 28 mL/min >[address] [facility] Comment on above: Non- GFR Calc Serum or plasma calcium marivel urement (mass/volume)Ordered By: Jennifer Gordon on 02-29-2024 Calcium [Mass/Vol] 9.3 mg/dL 8.5-10.1 [facility] Serum or plasma creatinine m easurement (mass/volume)Ordered By: Jennifer Gordon on 02-29-2024 Creatinine [Mass/Vol] 1.89 mg/dL 0.55-1.02 [facility] Comment on above: The validity of the calculated GFR & GFRAA in patients over 70 years has not been determined. Clinical correlation is essential. Serum or plasma thyroid stim ulating hormone (TSH) measurement (units/volume)Ordered By: Jennifer Gordon on 02-29-2024 TSH Qn 1.67 uIU/mL 0.358-3.[address] [facility] Serum or plasma urea nitroge n measurement (mass/volume)Ordered By: Jennifer Gordon on 02-29-2024 Urea nitrogen [Mass/Vol] 20 mg/dL 7-[address] [facility] Thin prep Papanicolaou smear with manual screeningOrdered By: Jennifer Gordon on 02-29-2024 Thin prep Papanicolaou smear with manual screening 3.5 g/dL 3.2-5.[address] [facility] Thin prep Papanicolaou smear with manual screening 45 U/L 15-[address] [facility] Thin prep Papanicolaou smear with manual screening 8 5-[address] [facility] Whole blood hemoglobin A1c/t otal hemoglobin ratio (mass fraction)Ordered By: Jennifer Gordon on 02-29-2024 HbA1c (Bld) [Mass fraction] 5.9 % 3.8-5.[address] [facility] Comment on above: Normal < 5.7 % Predi abetic 5.7 - 6.4 % Diabetic >or= 6.5 % Please note range changes. Absolute lymphocyte countOrd ered By: German Kamara on 12-29-2023 Lymphocytes Auto (Unsp spec) [#/Vol] 1.90 10*3/uL 0.83-4.[address] [facility] Automated lymphocyte count a s percentage of total leukocytesOrdered By: German Kamara on 12-29-2023 Lymphocytes/100 WBC Auto (Unsp spec) 17.8 % 19-[address] [facility] Basophil percentageOrdered B y: Jennifer Gordon on 12-29-2023 Bilirubin [Mass/Vol] 0.20 mg/dL 0.20-1.00 [facility] Comment on above: For patients on eltr ombopag therapy, use of Dimension [place] TBIL is not recommended. Chloride [Moles/Vol] 106 mmol/L 98-107 [facility] Cholesterol [Mass/Vol] 210 mg/dL <200 [facility] Comment on above: <200 mg/dL Desirable 200-240 mg/dL Borderline >240 mg/dL High Risk Glucose [Mass/Vol] 141 mg/dL 74-106 [facility] Comment on above: Fasting Glucose resu lt greater than or equal to 126 mg/dL suggests DIABETES MELLITUS per A.D.A. criteria. Potassium [Moles/Vol] 4.6 mmol/L 3.5-5.1 [facility] Protein [Mass/Vol] 7.7 g/dL 6.4-8.2 [facility] Sodium [Moles/Vol] 137 mmol/L 136-145 [facility] Triglyceride [Mass/Vol] 265 mg/dL <199 [facility] Comment on above: The drugs N-Acetylcy steine and Metamizole may falsely depress this assay.Serum Triglycerides Reference Interval Normal <150 mg/dL Borderline high 150 - 199 mg/dL High 200 - 499 mg/dL Very High > or = 500 mg/dL Basophil percentageOrdered B y: German Kamara on 12-29-2023 Basophils/100 WBC (Bld) 0.8 % 0-1 [facility] Eosinophils/100 WBC (Bld) 2.2 % 0-[address] [facility] Hemoglobin (Bld) [Mass/Vol] 11.7 g/dL 12.0-15.[address] [facility] Monocytes/100 WBC (Bld) 6.9 % 0-10 [facility] [place] Neutrophils (Bld) [#/Vol] 7.7 10*3/uL 2.0-7.[address] [facility] Neutrophils/100 WBC (Bld) 71.8 % 47-[address] [facility] WBC (Bld) [#/Vol] 10.7 10*3/uL 4.4-11.0 [facility] Bilirubin Test strip Ql (U)O rdered By: German Kamara on 12-29-2023 Bilirubin Ql (U) Negative Negative [facility] Determination of erythrocyte mean corpuscular volume (MCV)Ordered By: German Kamara on 12-29-2023 MCV (RBC) [Entitic vol] 85.8 fL 81-99 [facility] Erythrocyte distribution wid th ratioOrdered By: German Kamara on 12-29-2023 Erythrocyte distribution width (RBC) [Ratio] 15.9 % 11.6-14.[address] [facility] Erythrocyte distribution wid th standard deviationOrdered By: German Kamara on 12-29-2023 Erythrocyte distribution width (RBC) [Entitic vol] 50.2 fL 35.1-43.[address] [facility] Hematocrit Auto (Bld) [Volum e fraction]Ordered By: German Kamara on 12-29-2023 Hematocrit (Bld) [Volume fraction] 39.3 % 37-[address] [facility] Immature granulocytes/100 WB C Auto (Bld)Ordered By: German Kamara on 12-29-2023 Immature granulocytes/100 WBC (Bld) 0.500 % 0.0-0.[address] [facility] Comment on above: IG% - Immature Granu locytes (promyelocytes, myelocytes and metamyelocytes) > 1% indicates that a LEFT SHIFT is Present. Ketones Test strip Ql (U)Ord ered By: German Kamara on 12-29-2023 Ketones Ql (U) Negative Negative [facility] Laboratory - Chemistry and C hemistry - challengeOrdered By: Jennifer Gordon on 12-29-2023 Albumin/Globulin [Mass ratio] 0.8 {ratio} 0.9-2.[address] [facility] ALP [Catalytic activity/Vol] 89 U/L 45-[address] [facility] ALT [Catalytic activity/Vol] 21 U/L 13-[address] [facility] Cholesterol in HDL [Mass/Vol] 36 mg/dL >[address] [facility] Comment on above: The drugs N-Acetylcy steine and Metamizole may falsely depress this assay. Reference Range HDL <40 mg/dL Low HDL Cholesterol HDL >or= 60 mg/dL High HDL Cholesterol Cholesterol in LDL [Mass/Vol] 121 mg/dL 0-[address] [facility] CO2 [Moles/Vol] 26.0 mmol/L 21.0-32.[address] [facility] Globulin (S) [Mass/Vol] 4.3 g/dL 2.2-4.2 [facility] Magnesium [Mass/Vol] 2.3 mg/dL 1.6-2.6 [facility] Urea nitrogen/Creatinine [Mass ratio] 13.5 mg/mg 10-[address] [facility] Laboratory - Hematology and Cell countsOrdered By: German Kamara on 12-29-2023 MCH (RBC) [Entitic mass] 25.5 pg 27.0-32.[address] [facility] MCHC (RBC) [Mass/Vol] 29.8 g/dL 32-36 [facility] Nucleated RBC/100 WBC (Bld) [Ratio] 0 % 0-[address] [facility] Platelet mean volume (Bld) [Entitic vol] 10.2 fL 6.2-12.[address] [facility] Platelets (Bld) [#/Vol] 350 10*3/uL 150-[address] [facility] Nitrite Test strip Ql (U)Ord ered By: German Kamara on 12-29-2023 Nitrite Ql (U) Negative Negative [facility] No Panel InformationOrdered By: Jennifer Gordon on 12-29-2023 Estimated GFR (MDRD) Amer 33 mL/min >[address] [facility] Comment on above: GFR Calc Estimated GFR (MDRD) Non-Af Amer 28 mL/min >[address] [facility] Comment on above: Non- GFR Calc VLDL Cholesterol 53 mg/dL 5-[address] [facility] No Panel InformationOrdered By: German Kamara on 12-29-2023 Parathyroid Hormone (Intact) 96.2 pg/mL 18.4-80.[address] [facility] Vitamin D 25-Hydroxy 65.9 ng/mL [facility] Comment on above: Vitamin D 25(OH) Sta tus Range Deficiency <20 ng/mL (50nmol/L) Insufficiency 20 - 30 ng/mL (50 - 75 nmol/L) Sufficiency 30 - 100 ng/mL (75 - 250 nmol/L) Toxicity >100 ng/mL (>250 nmol/L) Protein Test strip Ql (U)Ord ered By: German Kamara on 12-29-2023 Protein Ql (U) 100 mg/dl Negative [facility] RBC Auto (Bld) [#/Vol]Ordere d By: German Kamara on 12-29-2023 RBC (Bld) [#/Vol] 4.58 10*6/uL 4.2-5.4 [facility] Serum or plasma calcium marivel urement (mass/volume)Ordered By: Jennifer Gordon on 12-29-2023 Calcium [Mass/Vol] 8.9 mg/dL 8.5-10.1 [facility] Serum or plasma creatinine m easurement (mass/volume)Ordered By: Jennifer Gordon on 12-29-2023 Creatinine [Mass/Vol] 1.93 mg/dL 0.55-1.02 [facility] Comment on above: The validity of the calculated GFR & GFRAA in patients over 70 years has not been determined. Clinical correlation is essential. Serum or plasma thyroid stim ulating hormone (TSH) measurement (units/volume)Ordered By: Jennifer Gordon on 12-29-2023 TSH Qn 24.50 uIU/mL 0.358-3.[address] [facility] Serum or plasma triiodothyro nine measurement by immunoassay (mass/volume)Ordered By: Jennifer Gordon on 12-29-2023 T3 IA [Mass/Vol] 1.06 ng/mL 0.6-1.[address] [facility] Serum or plasma urea nitroge n measurement (mass/volume)Ordered By: Jennifer Gordon on 12-29-2023 Urea nitrogen [Mass/Vol] 26 mg/dL 7-[address] [facility] Thin prep Papanicolaou smear with manual screeningOrdered By: Jennifer Gordon on 12-29-2023 Thin prep Papanicolaou smear with manual screening 3.4 g/dL 3.2-5.[address] [facility] Thin prep Papanicolaou smear with manual screening 20 U/L 15-[address] [facility] Thin prep Papanicolaou smear with manual screening 5 5-[address] [facility] Thin prep Papanicolaou smear with manual screening 1.10 ng/dL 0.76-1.[address] [facility] Thin prep Papanicolaou smear with manual screeningOrdered By: German Kamara on 12-29-2023 Protein (U) [Mass/Vol] 62.0 mg/dL 0.0-11.8 [facility] Urine blood detectionOrdered By: German Kamara on 12-29-2023 RBC Ql (U) Negative Negative [facility] Urine clarityOrdered By: Ludin Kamara on 12-29-2023 Clarity (U) Clear Clear [facility] Urine color determinationOrd ered By: German Kamara on 12-29-2023 Color (U) Yellow Yellow [facility] Urine creatinine measurement (mass/volume)Ordered By: German Kamara on 12-29-2023 Creatinine (U) [Mass/Vol] 98.60 mg/dL NO RANGE EST. [facility] Urine glucose detectionOrder ed By: German Kamara on 12-29-2023 Glucose Ql (U) Normal mg/dl Normal [facility] Urine leukocyte esterase det ection by dipstickOrdered By: German Kamara on 12-29-2023 Leukocyte esterase Test strip Ql (U) 100 /ul Negative [facility] Urine pHOrdered By: Harriet Kamara on 12-29-2023 pH (U) 6.0 [pH] 5.0 - 8.[address] [facility] Urine protein/creatinine mas s ratioOrdered By: German Kamara on 12-29-2023 Protein/Creatinine (U) [Mass ratio] 629 mg/g CRE 0-[address] [facility] Urine specific gravity measu rementOrdered By: German Kamara on 12-29-2023 Specific gravity (U) [Rel density] 1.015 1.002-1.[address] [facility] Urine urobilinogen measureme ntOrdered By: German Kamara on 12-29-2023 Urobilinogen Ql (U) Normal mg/dl Normal [facility] Albumin Elph [Mass/Vol]Order ed By: Rusty Dozier on 11-28-2023 Albumin [Mass/Vol] 3.8 g/dL 2.9-4.4 [facility] Basophil percentageOrdered B y: Rusty Dozier on 01-23-2024 Basophil percentage Comment . [facility] Comment on above: Bence Davila Protein positive; kappa type.Performed at: [employer] [facility] [id number] Director: Myron Kennedy PhD, Phone: [phone] Interpretation of serum or p lasma protein pattern by immunofixation (narrative resultOrdered By: Rusty Dozier on 11-28-2023 Protein Fractions Immunofixation Jamison [Interp] Not Observed g/dL Not Observed [facility] Laboratory - Chemistry and C hemistry - challengeOrdered By: Rusty Dozier on 11-28-2023 IgM (U) [Mass/Vol] 58 mg/dL 26-217 [facility] No Panel InformationOrdered By: Rusty Dozier on 11-28-2023 Addendum Document Comment . [facility] Comment on above: Protein electrophore sis scan will follow via computer,mail, or roofing technician delivery. Free Lambda Light Chains, Quant 41.5 mg/L 5.7-26.[address] [facility] Serum [id number]-[id number] measu rement by electrophoresisOrdered By: Rusty Dozier on 11-28-2023 Alpha 1 globulin Elph [Mass/Vol] 0.2 g/dL 0.0-0.[address] [facility] Alpha 1 globulin Elph [Mass/Vol] 1.0 g/dL 0.4-1.[address] [facility] Serum globulin measurement ( mass/volume)Ordered By: Rusty Dozier on 11-28-2023 Globulin (S) [Mass/Vol] 3.6 g/dL 2.2-3.9 [facility] Serum immunoglobulin kappa l ight chains/immunoglobulin lambda light chains mass ratioOrdered By: Rusty Dozier on 11-28-2023 Immunoglobulin light chains.kappa/Immunoglob ulin light chains.lambda (S) [Mass ratio] 1.26 0.26-1.[address] [facility] Serum or plasma IgA measurem ent (mass/volume)Ordered By: Rusty Dozier on 11-28-2023 IgA [Mass/Vol] 147 mg/dL 87-[address] [facility] Serum or plasma IgG measurem ent (mass/volume)Ordered By: Rusty Dozier on 11-28-2023 IgG [Mass/Vol] 1444 mg/dL 586-[address] [facility] Serum or plasma beta globuli n measurement by electrophoresis (mass/volume)Ordered By: Rusty Dozier on 11-28-2023 Beta globulin Elph [Mass/Vol] 1.1 g/dL 0.7-1.[address] [facility] Serum or plasma gamma globul in measurement by electrophoresis (mass/volume)Ordered By: Rusty Dozier on 11-28-2023 Gamma globulin Elph [Mass/Vol] 1.3 g/dL 0.4-1.[address] [facility] Serum or plasma immunoelectr ophoresis interpretation (nominal result)Ordered By: Rusty Dozier on 11-28-2023 Interpretation IEP [Interp] Comment . [facility] Comment on above: No monoclonality det ected. Serum or plasma immunoglobul in kappa light chains measurement (mass/volume)Ordered By: Rusty Dozier on 11-28-2023 Immunoglobulin light chains.kappa [Mass/Vol] 52.2 mg/L 3.3-19.[address] [facility] Thin prep Papanicolaou smear with manual screeningOrdered By: Rusty Dozier on 11-28-2023 Thin prep Papanicolaou smear with manual screening 1.1 0.7-1.[address] [facility] Total protein bloodOrdered B y: Rusty Dozier on 11-28-2023 Protein [Mass/Vol] 7.4 g/dL 6.0-8.5 [facility] Tendon Injection: Flexor Ten don Sheathon 10-16-2023 Rivas Jules MD 10/16/2023 2:42 PM Tendon Injection: Flexor Tendon Sheath Performed by: Rivas Jules MD Authorized by: Rivas Jules MD Consent given by: Patient Timeout performed at: 10/16/2023 2:41 PM Indications: Pain Location: Thumb Laterality: Left Needle size: 22 G Medications: 80 mg methylPREDNISolone acetate 40 mg/mL Anesthetic used: Lidocaine 1% [facility] Absolute lymphocyte countOrd ered By: Jennifer Gordon on 06-05-2023 Lymphocytes Auto (Unsp spec) [#/Vol] 2.66 10*3/uL 0.83-4.[address] [facility] Basophil percentageOrdered B y: Jennifer Gordon on 06-05-2023 Basophils/100 WBC (Bld) 0.8 % 0-1 [facility] Bilirubin [Mass/Vol] 0.20 mg/dL 0.20-1.00 [facility] Comment on above: For patients on eltr ombopag therapy, use of Dimension [place] TBIL is not recommended. Chloride [Moles/Vol] 104 mmol/L 98-107 [facility] Cholesterol [Mass/Vol] 220 mg/dL <200 [facility] Comment on above: <200 mg/dL Desirable 200-240 mg/dL Borderline >240 mg/dL High Risk Eosinophils/100 WBC (Bld) 3.4 % 0-[address] [facility] Glucose [Mass/Vol] 107 mg/dL 74-106 [facility] Comment on above: Fasting Glucose resu lt from 100 to 125 mg/dL suggests IMPAIRED HOMEOSTASIS per A.D.A. criteria. Neutrophils (Bld) [#/Vol] 6.1 10*3/uL 2.0-7.[address] [facility] Neutrophils/100 WBC (Bld) 60.7 % 47-[address] [facility] Potassium [Moles/Vol] 5.4 mmol/L 3.5-5.1 [facility] Protein [Mass/Vol] 8.1 g/dL 6.4-8.2 [facility] Sodium [Moles/Vol] 136 mmol/L 136-145 [facility] Triglyceride [Mass/Vol] 240 mg/dL <199 [facility] Comment on above: The drugs N-Acetylcy steine and Metamizole may falsely depress this assay.Serum Triglycerides Reference Interval Normal <150 mg/dL Borderline high 150 - 199 mg/dL High 200 - 499 mg/dL Very High > or = 500 mg/dL WBC (Bld) [#/Vol] 10.0 10*3/uL 4.4-11.0 [facility] Blood erythrocytes count (nu mber/volume)Ordered By: Jennifer Gordon on 06-05-2023 RBC (Bld) [#/Vol] 4.74 10*6/uL 4.2-5.4 [facility] Blood hemoglobin measurement (mass/volume)Ordered By: Jennifer Gordon on 06-05-2023 Hemoglobin (Bld) [Mass/Vol] 11.5 g/dL 12.0-15.[address] [facility] Blood lymphocytes/100 leukoc ytesOrdered By: Jennifer Gordon on 06-05-2023 Lymphocytes/100 WBC (Bld) 26.7 % 19-[address] [facility] Blood monocytes/100 leukocyt esOrdered By: Jennifer Gordon on 06-05-2023 Monocytes/100 WBC (Bld) 7.9 % 0-10 [facility] Blood platelet mean volumeOr dered By: Jennifer Gordon on 06-05-2023 Platelet mean volume (Bld) [Entitic vol] 10.5 fL 6.2-12.[address] [facility] Determination of erythrocyte mean corpuscular volume (MCV)Ordered By: Jennifer Gordon on 06-05-2023 MCV (RBC) [Entitic vol] 83.8 fL 81-99 [facility] Hematocrit Auto (Bld) [Volum e fraction]Ordered By: Jennifer Gordon on 06-05-2023 Hematocrit (Bld) [Volume fraction] 39.7 % 37-[address] [facility] Laboratory - Chemistry and C hemistry - challengeOrdered By: Jennifer Gordon on 06-05-2023 ALP [Catalytic activity/Vol] 105 U/L 45-[address] [facility] ALT [Catalytic activity/Vol] 18 U/L 13-[address] [facility] CO2 [Moles/Vol] 26.0 mmol/L 21.0-32.[address] [facility] Globulin (S) [Mass/Vol] 4.6 g/dL 2.2-4.2 [facility] Lipase [Catalytic activity/Vol] 69 U/L 13-[address] [facility] Comment on above: Please note:LIPASE r evised reference range effective 23. New Lipase methodology. Expected to produce lower values than the previous assay method. NEW Reference Range: 13 - 75 U/L Urea nitrogen/Creatinine [Mass ratio] 12.2 mg/mg 10-[address] [facility] Laboratory - Hematology and Cell countsOrdered By: Jennifer Gordon on 06-05-2023 Erythrocyte distribution width (RBC) [Entitic vol] 50.5 fL 35.1-43.[address] [facility] Erythrocyte distribution width (RBC) [Ratio] 16.6 % 11.6-14.[address] [facility] Immature granulocytes/100 WBC (Bld) 0.500 % 0.0-0.[address] [facility] Comment on above: IG% - Immature Granu locytes (promyelocytes, myelocytes and metamyelocytes) > 1% indicates that a LEFT SHIFT is Present. MCH (RBC) [Entitic mass] 24.3 pg 27.0-32.[address] [facility] Nucleated RBC/100 WBC (Bld) [Ratio] 0 % 0-[address] [facility] MCHC Auto (RBC) [Mass/Vol]Or dered By: Jennifer Gordon on 06-05-2023 MCHC (RBC) [Mass/Vol] 29.0 g/dL 32-36 [facility] No Panel InformationOrdered By: Jennifer Gordon on 06-05-2023 Endomysial IgA Antibody Negative Negative [facility] Estimated GFR (MDRD) Amer 36 mL/min >[address] [facility] Comment on above: GFR Calc Estimated GFR (MDRD) Non-Af Amer 30 mL/min >[address] [facility] Comment on above: Non- GFR Calc Thyroid Stimulating Hormone (TSH) 0.12 uIU/mL 0.358-3.[address] [facility] Vitamin D 25-Hydroxy 42.0 ng/mL [facility] Comment on above: Vitamin D 25(OH) Sta tus Range Deficiency <20 ng/mL (50nmol/L) Insufficiency 20 - 30 ng/mL (50 - 75 nmol/L) Sufficiency 30 - 100 ng/mL (75 - 250 nmol/L) Toxicity >100 ng/mL (>250 nmol/L) Platelets bldOrdered By: Amadou Gordon on 06-05-2023 Platelets (Bld) [#/Vol] 370 10*3/uL 150-[address] [facility] Serum IgA measurement (units /volume)Ordered By: Jennifer Gordon on 06-05-2023 IgA Qn (S) 135 mg/dL 87-[address] [facility] Comment on above: Performed at: [employer] [id number] [place], [place] [id number] Director: Myron Kennedy PhD, Phone: [phone] Serum or plasma albumin marivel urement (mass/volume)Ordered By: Jennifer Gordon on 06-05-2023 Albumin [Mass/Vol] 3.5 g/dL 3.2-5.0 [facility] Serum or plasma albumin/glob ulin mass ratioOrdered By: Jennifer Gordon on 06-05-2023 Albumin/Globulin [Mass ratio] 0.8 {ratio} 0.9-2.[address] [facility] Serum or plasma calcium marivel urement (mass/volume)Ordered By: Jennifer Gordon on 06-05-2023 Calcium [Mass/Vol] 9.1 mg/dL 8.5-10.1 [facility] Serum or plasma cholesterol in HDL measurement (mass/volume)Ordered By: Jennifer Gordon on 06-05-2023 Cholesterol in HDL [Mass/Vol] 40 mg/dL >[address] [facility] Comment on above: The drugs N-Acetylcy steine and Metamizole may falsely depress this assay. Reference Range HDL <40 mg/dL Low HDL Cholesterol HDL >or= 60 mg/dL High HDL Cholesterol Serum or plasma cholesterol in VLDL measurement (mass/volume)Ordered By: Jennifer Gordon on 06-05-2023 Cholesterol in VLDL [Mass/Vol] 48 mg/dL 5-[address] [facility] Serum or plasma creatinine m easurement (mass/volume)Ordered By: Jennifer Gordon on 06-05-2023 Creatinine [Mass/Vol] 1.80 mg/dL 0.55-1.02 [facility] Comment on above: The validity of the calculated GFR & GFRAA in patients over 70 years has not been determined. Clinical correlation is essential. Serum or plasma low density lipoprotein (LDL) cholesterol measurement (mass/volume)Ordered By: Jennifer Gordon on 06-05-2023 Cholesterol in LDL [Mass/Vol] 132 mg/dL 0-[address] [facility] Serum or plasma urea nitroge n measurement (mass/volume)Ordered By: Jennifer Gordon on 06-05-2023 Urea nitrogen [Mass/Vol] 22 mg/dL 7-[address] [facility] Serum tissue transglutaminas e IgA antibody assay (units/volume)Ordered By: Jennifer Gordon on 06-05-2023 tTG IgA Qn (S) <2 U/mL 0-[address] [facility] Comment on above: Negative 0 - 3 Weak Positive 4 - 10 Positive >10 Tissue Transglutaminase (tTG) has been identified as the endomysial antigen. Studies have demonstr- ated that endomysial IgA antibodies have over 99% specificity for gluten sensitive enteropathy. Thin prep Papanicolaou smear with manual screeningOrdered By: Jennifer Gordon on 06-05-2023 Thin prep Papanicolaou smear with manual screening 17 U/L 15-[address] [facility] Thin prep Papanicolaou smear with manual screening 6 5-[address] [facility] ACYLCARNITINES, QUANTITATIVE , BLOOD SPOT FILTER PAPERon 02-15-2023 3-Hydroxyisovalerylcarn itine (C5-OH) (DBS) [Moles/Vol] 0.12 umol/L NINF - 0.40 umol/L [facility] Acylcarnitine pattern [Interp] Interpretation: [facility] Comment on above: Clinical correlation suggested. Mild elevation in isovalerylcarnitine (C5), can be seen in isovaleric acidemia. Otherwise unremarkable profile. Adipoylcarnitine (C6-DC) (DBS) [Moles/Vol] <0.01 NINF - 0.10 umol/L [facility] C0 (DBS) [Moles/Vol] 19.70 umol/L 15.0 - 55.0 umol/L [facility] C10 (DBS) [Moles/Vol] 0.09 umol/L NINF - 0.25 umol/L [facility] C10:1 (DBS) [Moles/Vol] <0.08 NINF - 0.50 umol/L [facility] C10:2 (DBS) [Moles/Vol] <0.04 NINF - 0.28 umol/L [facility] C12 (DBS) [Moles/Vol] 0.14 umol/L High NINF - 0.13 umol/L [facility] C12:1 (DBS) [Moles/Vol] 0.03 umol/L NINF - 0.19 umol/L [facility] C14 (DBS) [Moles/Vol] 0.17 umol/L High NINF - 0.15 umol/L [facility] C14-OH (DBS) [Moles/Vol] 0.02 umol/L NINF - 0.13 umol/L [facility] C14:1 (DBS) [Moles/Vol] 0.05 umol/L NINF - 0.21 umol/L [facility] C14:2 (DBS) [Moles/Vol] 0.02 umol/L NINF - 0.12 umol/L [facility] C16 (DBS) [Moles/Vol] 1.25 umol/L NINF - 1.73 umol/L [facility] C16-OH (DBS) [Moles/Vol] 0.02 umol/L NINF - 0.10 umol/L [facility] C16:1 (DBS) [Moles/Vol] 0.12 umol/L NINF - 0.19 umol/L [facility] C16:1-OH (DBS) [Moles/Vol] 0.11 umol/L High NINF - 0.11 umol/L [facility] C18 (DBS) [Moles/Vol] 0.46 umol/L NINF - 1.19 umol/L [facility] C18-OH (DBS) [Moles/Vol] 0.02 umol/L NINF - 0.04 umol/L [facility] C18:1 (DBS) [Moles/Vol] 0.87 umol/L 0.24 - 2.64 umol/L [facility] C18:1-OH (DBS) [Moles/Vol] <0.07 NINF - 0.07 umol/L [facility] C18:2 (DBS) [Moles/Vol] 0.25 umol/L NINF - 1.00 umol/L [facility] C18:2-OH (DBS) [Moles/Vol] <0.03 NINF - 0.15 umol/L [facility] C2 (DBS) [Moles/Vol] 10.45 umol/L 2.77 - 30.47 umol/L [facility] C3 (DBS) [Moles/Vol] 1.63 umol/L NINF - 2.35 umol/L [facility] C3-DC (DBS) [Moles/Vol] <0.04 NINF - 0.15 umol/L [facility] C4-DC (DBS) [Moles/Vol] 0.28 umol/L NINF - 0.84 umol/L [facility] C4-OH (DBS) [Moles/Vol] 0.03 umol/L NINF - 0.21 umol/L [facility] C5-DC (DBS) [Moles/Vol] 0.03 umol/L NINF - 0.11 umol/L [facility] C6 (DBS) [Moles/Vol] 0.05 umol/L NINF - 0.16 umol/L [facility] C8 (DBS) [Moles/Vol] 0.05 umol/L NINF - 0.14 umol/L [facility] C8:1 (DBS) [Moles/Vol] 0.08 umol/L NINF - 0.35 umol/L [facility] Interpretation and review of laboratory results Abnormal [facility] Isobutyrylcarnitine (C4) (DBS) [Moles/Vol] 0.21 umol/L NINF - 0.50 umol/L [facility] Isovalerylcarnitine+Met hylbutyrylcarnitine (C5) (DBS) [Moles/Vol] 0.44 umol/L High NINF - 0.28 umol/L [facility] Service comment 02 (Unsp spec) [Interp] This test was developed and its performance characteristics determined by [facility]. It has not been cleared or approved by the FDA. The laboratory is regulated under CLIA as qualified to perform high complexity testing. This test is used for clinical purposes. It should not be regarded as investigational or for research. [facility] Tiglylcarnitine (C5:1) (DBS) [Moles/Vol] 0.01 umol/L NINF - 0.50 umol/L [facility] Acylcarnitine panelon 2022 3-Hydroxyisovalerylcarn itine (C5-OH) [Moles/Vol] Test ordered in error based on source collected. Appropriate test code has been ordered. NINF - 0.20 umol/L [facility] Comment on above: PER SAMPLE RECVD REO RDERED FPACP SEE 3-Hydroxytetradecenoylc arnitine (C14:1-OH) [Moles/Vol] Test ordered in error based on source collected. Appropriate test code has been ordered. NINF - 0.13 umol/L [facility] Comment on above: PER SAMPLE RECVD REO RDERED FPACP SEE Acylcarnitine pattern [Interp] Test ordered in error based on source collected. Appropriate test code has been ordered. [facility] Comment on above: PER SAMPLE RECVD REO RDERED FP[facility] SEE Adipoylcarnitine (C6-DC) [Moles/Vol] Test ordered in error based on source collected. Appropriate test code has been ordered. NINF - 0.13 umol/L [facility] Comment on above: PER SAMPLE RECVD REO RDERED FPACP SEE C0 [Moles/Vol] Test ordered in erro r based on source collected. Appropriate test code has been ordered. 22 - 52 umol/L [facility] Comment on above: PER SAMPLE RECVD REO RDERED FPACP SEE C10 [Moles/Vol] Test ordered in erro r based on source collected. Appropriate test code has been ordered. NINF - 1.05 umol/L [facility] Comment on above: PER SAMPLE RECVD REO RDERED FPACP SEE C10:1 [Moles/Vol] Test ordered in erro r based on source collected. Appropriate test code has been ordered. NINF - 0.53 umol/L [facility] Comment on above: PER SAMPLE RECVD REO RDERED FPACP SEE C10:2 [Moles/Vol] Test ordered in erro r based on source collected. Appropriate test code has been ordered. NINF - 0.30 umol/L [facility] Comment on above: PER SAMPLE RECVD REO RDERED FPACP SEE C12 [Moles/Vol] Test ordered in erro r based on source collected. Appropriate test code has been ordered. NINF - 0.34 umol/L [facility] Comment on above: PER SAMPLE RECVD REO RDERED FP[facility] SEE C12-OH [Moles/Vol] Test ordered in erro r based on source collected. Appropriate test code has been ordered. NINF - 0.09 umol/L [facility] Comment on above: PER SAMPLE RECVD REO RDERED FPACP SEE C12:1 [Moles/Vol] Test ordered in erro r based on source collected. Appropriate test code has been ordered. NINF - 0.35 umol/L [facility] Comment on above: PER SAMPLE RECVD REO RDERED FP[facility] SEE C14 [Moles/Vol] Test ordered in erro r based on source collected. Appropriate test code has been ordered. NINF - 0.17 umol/L [facility] Comment on above: PER SAMPLE RECVD REO RDERED [facility] SEE C14-OH [Moles/Vol] Test ordered in erro r based on source collected. Appropriate test code has been ordered. NINF - 0.08 umol/L [facility] Comment on above: PER SAMPLE RECVD REO RDERED FP[facility] SEE C14:1 [Moles/Vol] Test ordered in erro r based on source collected. Appropriate test code has been ordered. NINF - 0.32 umol/L [facility] Comment on above: PER SAMPLE RECVD REO RDERED FP[facility] SEE C14:2 [Moles/Vol] Test ordered in erro r based on source collected. Appropriate test code has been ordered. NINF - 0.22 umol/L [facility] Comment on above: PER SAMPLE RECVD REO RDERED FP[facility] SEE C16 [Moles/Vol] Test ordered in erro r based on source collected. Appropriate test code has been ordered. NINF - 0.29 umol/L [facility] Comment on above: PER SAMPLE RECVD REO RDERED FP[facility] SEE C16-OH [Moles/Vol] Test ordered in erro r based on source collected. Appropriate test code has been ordered. NINF - 0.06 umol/L [facility] Comment on above: PER SAMPLE RECVD REO RDERED FP[facility] SEE C16:1 [Moles/Vol] Test ordered in erro r based on source collected. Appropriate test code has been ordered. NINF - 0.10 umol/L [facility] Comment on above: PER SAMPLE RECVD REO RDERED FP[facility] SEE C16:1-OH [Moles/Vol] Test ordered in err or based on source collected. Appropriate test code has been ordered. NINF - 0.07 umol/L [facility] Comment on above: PER SAMPLE RECVD REO RDERED FP[facility] SEE C18 [Moles/Vol] Test ordered in erro r based on source collected. Appropriate test code has been ordered. NINF - 0.17 umol/L [facility] Comment on above: PER SAMPLE RECVD REO RDERED FP[facility] SEE C18-OH [Moles/Vol] Test ordered in erro r based on source collected. Appropriate test code has been ordered. NINF - 0.07 umol/L [facility] Comment on above: PER SAMPLE RECVD REO RDERED FP[facility] SEE C18:1 [Moles/Vol] Test ordered in erro r based on source collected. Appropriate test code has been ordered. NINF - 0.43 umol/L [facility] Comment on above: PER SAMPLE RECVD REO RDERED FP[facility] SEE C18:1-OH [Moles/Vol] Test ordered in err or based on source collected. Appropriate test code has been ordered. NINF - 0.10 umol/L [facility] Comment on above: PER SAMPLE RECVD REO RDERED FP[facility] SEE C18:2 [Moles/Vol] Test ordered in erro r based on source collected. Appropriate test code has been ordered. NINF - 0.26 umol/L [facility] Comment on above: PER SAMPLE RECVD REO RDERED FP[facility] SEE C18:2-OH [Moles/Vol] Test ordered in err or based on source collected. Appropriate test code has been ordered. NINF - 0.11 umol/L [facility] Comment on above: PER SAMPLE RECVD REO RDERED FP[facility] SEE C2 [Moles/Vol] Test ordered in erro r based on source collected. Appropriate test code has been ordered. 2.84 - 25.30 umol/L [facility] Comment on above: PER SAMPLE RECVD REO RDERED FP[facility] SEE C3 [Moles/Vol] Test ordered in erro r based on source collected. Appropriate test code has been ordered. NINF - 1.00 umol/L [facility] Comment on above: PER SAMPLE RECVD REO RDERED FP[facility] SEE C3-DC [Moles/Vol] Test ordered in erro r based on source collected. Appropriate test code has been ordered. NINF - 0.14 umol/L [facility] Comment on above: PER SAMPLE RECVD REO RDERED FP[facility] SEE C4-DC [Moles/Vol] Test ordered in erro r based on source collected. Appropriate test code has been ordered. NINF - 0.25 umol/L [facility] Comment on above: PER SAMPLE RECVD REO RDERED FP[facility] SEE C4-OH [Moles/Vol] Test ordered in erro r based on source collected. Appropriate test code has been ordered. NINF - 0.40 umol/L [facility] Comment on above: PER SAMPLE RECVD REO RDERED FP[facility] SEE C5-DC [Moles/Vol] Test ordered in erro r based on source collected. Appropriate test code has been ordered. NINF - 0.18 umol/L [facility] Comment on above: PER SAMPLE RECVD REO RDERED FP[facility] SEE C6 [Moles/Vol] Test ordered in erro r based on source collected. Appropriate test code has been ordered. NINF - 0.42 umol/L [facility] Comment on above: PER SAMPLE RECVD REO RDERED FP[facility] SEE C6-OH [Moles/Vol] Test ordered in erro r based on source collected. Appropriate test code has been ordered. NINF - 0.20 umol/L [facility] Comment on above: PER SAMPLE RECVD REO RDERED FPACP SEE C8 [Moles/Vol] Test ordered in erro r based on source collected. Appropriate test code has been ordered. NINF - 1.00 umol/L [facility] Comment on above: PER SAMPLE RECVD REO RDERED FPACP SEE C8-DC [Moles/Vol] Test ordered in erro r based on source collected. Appropriate test code has been ordered. NINF - 0.10 umol/L [facility] Comment on above: PER SAMPLE RECVD REO RDERED FP[facility] SEE C8:1 [Moles/Vol] Test ordered in erro r based on source collected. Appropriate test code has been ordered. NINF - 0.97 umol/L [facility] Comment on above: PER SAMPLE RECVD REO RDERED [facility] SEE Carnitine [Moles/Vol] Test ordered in er ror based on source collected. Appropriate test code has been ordered. 27 - 66 umol/L [facility] Comment on above: PER SAMPLE RECVD REO RDERED FP[facility] SEE Isobutyrylcarnitine (C4) [Moles/Vol] Test ordered in error based on source collected. Appropriate test code has been ordered. NINF - 1.01 umol/L [facility] Comment on above: PER SAMPLE RECVD REO RDERED [facility] SEE Isovalerylcarnitine+Met hylbutyrylcarnitine (C5) [Moles/Vol] Test ordered in error based on source collected. Appropriate test code has been ordered. NINF - 0.65 umol/L [facility] Comment on above: PER SAMPLE RECVD REO RDERED FP[facility] SEE Service comment 02 (Unsp spec) [Interp] Test ordered in error based on source collected. Appropriate test code has been ordered. [facility] Comment on above: PER SAMPLE RECVD REO RDERED FP[facility] SEE CORRECTED on 02/14 AT 0956: Result was previously reported as: This test was developed and its performance characteristics determined by [facility]. It has not been cleared or approved by the FDA. The laboratory is regulated under CLIA as qualified to perform high complexity testing. This test is used for clinical purposes. It should not be regarded as investigational or for research. Tiglylcarnitine (C5:1) [Moles/Vol] Test ordered in error based on source collected. Appropriate test code has been ordered. NINF - 0.15 umol/L [facility] Comment on above: PER SAMPLE RECVD REO RDERED FPACP SEE [facility] Albumin Elph [Mass/Vol]Order ed By: Dr. Dozier on 02-07-2023 Albumin [Mass/Vol] 3.7 g/dL 2.9-4.4 [facility] Basophil percentageOrdered B y: Dr. Dozier on 02-07-2023 Basophil percentage Comment . [facility] Comment on above: Bence Davila Protein positive; kappa type.Performed at: - [facility] [id number] Director: Myron Kennedy PhD, Phone: [phone] Chloride [Moles/Vol] 103 mmol/L 98-107 [facility] Glucose [Mass/Vol] 107 mg/dL 74-106 [facility] Comment on above: Fasting Glucose resu lt from 100 to 125 mg/dL suggests IMPAIRED HOMEOSTASIS per A.D.A. criteria. Potassium [Moles/Vol] 5.1 mmol/L 3.5-5.1 [facility] Sodium [Moles/Vol] 134 mmol/L 136-145 [facility] Interpretation of serum or p lasma protein pattern by immunofixation (narrative resultOrdered By: Dr. Dozier on 02-07-2023 Protein Fractions Immunofixation Jamison [Interp] See comment [facility] Comment on above: Result: Not Observed Laboratory - Chemistry and C hemistry - challengeOrdered By: Dr. Dozier on 02-07-2023 CO2 [Moles/Vol] 26.0 mmol/L 21.0-32.[address] [facility] Urea nitrogen/Creatinine [Mass ratio] 14.0 mg/mg 10-[address] [facility] No Panel InformationOrdered By: Dr. Dozier on 02-07-2023 Addendum Document Comment . [facility] Comment on above: Protein electrophore sis scan will follow via computer,mail, or roofing technician delivery. Estimated GFR (MDRD) Amer 37 mL/min >[address] [facility] Comment on above: GFR Calc Estimated GFR (MDRD) Non-Af Amer 30 mL/min >[address] [facility] Comment on above: Non- GFR Calc Free Lambda Light Chains, Quant 46.9 mg/L 5.7-26.[address] [facility] Serum [id number] measu rement by electrophoresisOrdered By: Dr. Dozier on 02-07-2023 Alpha 1 globulin Elph [Mass/Vol] 0.3 g/dL 0.0-0.[address] [facility] Alpha 1 globulin Elph [Mass/Vol] 1.1 g/dL 0.4-1.[address] [facility] Serum globulin measurement ( mass/volume)Ordered By: Dr. Dozier on 02-07-2023 Globulin (S) [Mass/Vol] 4.2 g/dL 2.2-3.9 [facility] Serum immunoglobulin kappa l ight chains/immunoglobulin lambda light chains mass ratioOrdered By: Dr. Dozier on 02-07-2023 Immunoglobulin light chains.kappa/Immunoglob ulin light chains.lambda (S) [Mass ratio] 1.34 0.26-1.[address] [facility] Serum or plasma IgA measurem ent (mass/volume)Ordered By: Dr. Dozier on 02-07-2023 IgA [Mass/Vol] 119 mg/dL 87-[address] [facility] Serum or plasma IgG measurem ent (mass/volume)Ordered By: Dr. Dozier on 02-07-2023 IgG [Mass/Vol] 1604 mg/dL [phone] [facility] Serum or plasma IgM measurem ent (mass/volume)Ordered By: Dr. Dozier on 02-07-2023 IgM [Mass/Vol] 58 mg/dL 26-[address] [facility] Serum or plasma beta globuli n measurement by electrophoresis (mass/volume)Ordered By: Dr. Dozier on 02-07-2023 Beta globulin Elph [Mass/Vol] 1.2 g/dL 0.7-1.[address] [facility] Serum or plasma calcitriol m easurement (mass/volume)Ordered By: Dr. Dozier on 02-07-2023 1,25-dihydroxyvitamin D3 [Mass/Vol] 17.1 pg/mL 24.8-81.[address] [facility] Comment on above: Performed at: [address] [id number] Director: Braulio Rubio MD, Phone: [phone] Serum or plasma calcium marivel urement (mass/volume)Ordered By: Dr. Dozier on 02-07-2023 Calcium [Mass/Vol] 9.5 mg/dL 8.5-10.1 [facility] Serum or plasma creatinine m easurement (mass/volume)Ordered By: Dr. Dozier on 02-07-2023 Creatinine [Mass/Vol] 1.78 mg/dL 0.55-1.02 [facility] Comment on above: The validity of the calculated GFR & GFRAA in patients over 70 years has not been determined. Clinical correlation is essential. Serum or plasma gamma globul in measurement by electrophoresis (mass/volume)Ordered By: Dr. Dozier on 02-07-2023 Gamma globulin Elph [Mass/Vol] 1.6 g/dL 0.4-1.[address] [facility] Serum or plasma immunoelectr ophoresis interpretation (nominal result)Ordered By: Dr. Dozier on 02-07-2023 Interpretation IEP [Interp] Comment . [facility] Comment on above: No monoclonality det ected. Serum or plasma immunoglobul in kappa light chains measurement (mass/volume)Ordered By: Dr. Dozier on 02-07-2023 Immunoglobulin light chains.kappa [Mass/Vol] 62.9 mg/L 3.3-19.[address] [facility] Serum or plasma urea nitroge n measurement (mass/volume)Ordered By: Dr. Dozier on 02-07-2023 Urea nitrogen [Mass/Vol] 25 mg/dL 7-[address] [facility] Thin prep Papanicolaou smear with manual screeningOrdered By: Dr. Dozier on 02-07-2023 Thin prep Papanicolaou smear with manual screening 5 5-[address] [facility] Thin prep Papanicolaou smear with manual screening 0.9 0.7-1.[address] [facility] Total protein bloodOrdered B y: Dr. Dozier on 02-07-2023 Protein [Mass/Vol] 7.9 g/dL 6.0-8.5 [facility] Basophil percentageOrdered B y: Dr. Dozier on 12-07-2022 Basophil percentage Comment: . [facility] Comment on above: Presence of monoclon al protein is unclear at this time. Suggestrepeat in 3 to 6 months if clinically indicated.Performed at: [place] [id number] Director: Myron Kennedy PhD, Phone: [phone] Basophil percentageon 2022 Basophil percentage 3.6 mg/dL 2.5-4.9 [facility] Chloride [Moles/Vol] 97 mmol/L 98-107 [facility] Glucose [Mass/Vol] 120 mg/dL 74-106 [facility] Comment on above: Fasting Glucose resu lt from 100 to 125 mg/dL suggests IMPAIRED HOMEOSTASIS per A.D.A. criteria. Potassium [Moles/Vol] 4.6 mmol/L 3.5-5.1 [facility] Sodium [Moles/Vol] 134 mmol/L 136-145 [facility] Bilirubin Test strip Ql (U)o n 12-07-2022 Bilirubin Ql (U) Negative Negative [facility] Ketones Test strip Ql (U)on 12-07-2022 Ketones Ql (U) Negative Negative [facility] Laboratory - Chemistry and C hemistry - challengeon 12-07-2022 CO2 [Moles/Vol] 28.0 mmol/L 21.0-32.[address] [facility] Urea nitrogen/Creatinine [Mass ratio] 12.2 mg/mg 10-[address] [facility] Nitrite Test strip Ql (U)on 12-07-2022 Nitrite Ql (U) Negative Negative [facility] No Panel Informationon 12-07 Estimated GFR (MDRD) Amer 46 mL/min >[address] [facility] Comment on above: GFR Calc Estimated GFR (MDRD) Non-Af Amer 38 mL/min >[address] [facility] Comment on above: Non- GFR Calc Protein Test strip Ql (U)on 12-07-2022 Protein Ql (U) 15 mg/dl Negative [facility] Serum or plasma albumin marivel urement (mass/volume)on 12-07-2022 Albumin [Mass/Vol] 3.3 g/dL 3.2-5.0 [facility] Serum or plasma calcium marivel urement (mass/volume)on 12-07-2022 Calcium [Mass/Vol] 9.4 mg/dL 8.5-10.1 [facility] Serum or plasma creatinine m easurement (mass/volume)on 12-07-2022 Creatinine [Mass/Vol] 1.48 mg/dL 0.55-1.02 [facility] Comment on above: The validity of the calculated GFR & GFRAA in patients over 70 years has not been determined. Clinical correlation is essential. Serum or plasma urea nitroge n measurement (mass/volume)on 12-07-2022 Urea nitrogen [Mass/Vol] 18 mg/dL 7-[address] [facility] Urine blood detectionon RBC Ql (U) Negative Negative [facility] Urine clarityon 12-07-2022 Clarity (U) Clear Clear [facility] Urine color determinationon 12-07-2022 Color (U) Yellow Yellow [facility] Urine creatinine measurement (mass/volume)on 12-07-2022 Creatinine (U) [Mass/Vol] 43.10 mg/dL NO RANGE EST. [facility] Urine glucose detectionon Glucose Ql (U) Normal mg/dl Normal [facility] Urine leukocyte esterase det ection by dipstickon 12-07-2022 Leukocyte esterase Test strip Ql (U) Negative Negative [facility] Urine pHon 12-07-2022 pH (U) 7.0 [pH] 5.0 - 8.[address] [facility] Urine protein measurement (m ass/volume)on 12-07-2022 Protein (U) [Mass/Vol] 13.8 mg/dL 0.0-11.8 [facility] Urine protein/creatinine mas s ratioon 12-07-2022 Protein/Creatinine (U) [Mass ratio] 320 mg/g CRE 0-[address] [facility] Urine specific gravity measu rementon 12-07-2022 Specific gravity (U) [Rel density] 1.010 1.002-1.[address] [facility] Urobilinogen Auto test strip Ql (U)on 12-07-2022 Urobilinogen Ql (U) Normal mg/dl Normal [facility] Albumin Elph [Mass/Vol]Order ed By: Dr. Dozier on 12-01-2022 Albumin [Mass/Vol] 3.5 g/dL 2.9-4.4 [facility] Basophil percentageOrdered B y: Dr. Dozier on 12-01-2022 Chloride [Moles/Vol] 89 mmol/L 98-107 [facility] Glucose [Mass/Vol] 109 mg/dL 74-106 [facility] Comment on above: Fasting Glucose resu lt from 100 to 125 mg/dL suggests IMPAIRED HOMEOSTASIS per A.D.A. criteria. Potassium [Moles/Vol] 3.5 mmol/L 3.5-5.1 [facility] Sodium [Moles/Vol] 125 mmol/L 136-145 [facility] Interpretation of serum or p lasma protein pattern by immunofixation (narrative resultOrdered By: Dr. Dozier on 12-01-2022 Protein Fractions Immunofixation Jamison [Interp] See comment [facility] Comment on above: NOT OBSERVED Iron measurement (mass/mass) Ordered By: Dr. Dozier on 12-01-2022 Iron (Unsp spec) [Mass/Mass] 19 ug/dL 50-[address] [facility] Laboratory - Chemistry and C hemistry - challengeOrdered By: Dr. Dozier on 12-01-2022 CO2 [Moles/Vol] 22.0 mmol/L 21.0-32.[address] [facility] Urea nitrogen/Creatinine [Mass ratio] 13.1 mg/mg 10-[address] [facility] No Panel InformationOrdered By: Dr. Dozier on 12-01-2022 Addendum Document Comment . [facility] Comment on above: Protein electrophore sis scan will follow via computer,mail, or roofing technician delivery.Performed at: [address] [id number] Director: Myron Kennedy PhD, Phone: [phone] Estimated GFR (MDRD) Amer 25 mL/min >[address] [facility] Comment on above: GFR Calc Estimated GFR (MDRD) Non-Af Amer 21 mL/min >[address] [facility] Comment on above: Non- GFR Calc Serum [id number] measu rement by electrophoresisOrdered By: Dr. Dozier on 12-01-2022 Alpha 1 globulin Elph [Mass/Vol] 0.3 g/dL 0.0-0.[address] [facility] Alpha 1 globulin Elph [Mass/Vol] 1.1 g/dL 0.4-1.[address] [facility] Serum globulin measurement ( mass/volume)Ordered By: Dr. Dozier on 12-01-2022 Globulin (S) [Mass/Vol] 3.5 g/dL 2.2-3.9 [facility] Serum or plasma IgA measurem ent (mass/volume)Ordered By: Dr. Dozier on 12-01-2022 IgA [Mass/Vol] 107 mg/dL 87-[address] [facility] Serum or plasma IgG measurem ent (mass/volume)Ordered By: Dr. Dozier on 12-01-2022 IgG [Mass/Vol] 1343 mg/dL [phone] [facility] Serum or plasma IgM measurem ent (mass/volume)Ordered By: Dr. Dozier on 12-01-2022 IgM [Mass/Vol] 42 mg/dL 26-[address] [facility] Serum or plasma beta globuli n measurement by electrophoresis (mass/volume)Ordered By: Dr. Dozier on 12-01-2022 Beta globulin Elph [Mass/Vol] 1.0 g/dL 0.7-1.[address] [facility] Serum or plasma calcitriol m easurement (mass/volume)Ordered By: Dr. Dozier on 12-01-2022 1,25-dihydroxyvitamin D3 [Mass/Vol] 32.2 pg/mL 24.8-81.[address] [facility] Comment on above: Performed at: - [address] [id number] Director: Braulio Rubio MD, Phone: [phone] Serum or plasma calcium marivel urement (mass/volume)Ordered By: Dr. Dozier on 12-01-2022 Calcium [Mass/Vol] 8.9 mg/dL 8.5-10.1 [facility] Serum or plasma creatinine m easurement (mass/volume)Ordered By: Dr. Dozier on 12-01-2022 Creatinine [Mass/Vol] 2.51 mg/dL 0.55-1.02 [facility] Comment on above: The validity of the calculated GFR & GFRAA in patients over 70 years has not been determined. Clinical correlation is essential. Serum or plasma ferritin josé miguel surement (mass/volume)Ordered By: Dr. Dozier on 12-01-2022 Ferritin [Mass/Vol] 70 ng/mL 8-252 [facility] Serum or plasma gamma globul in measurement by electrophoresis (mass/volume)Ordered By: Dr. Dozier on 12-01-2022 Gamma globulin Elph [Mass/Vol] 1.2 g/dL 0.4-1.[address] [facility] Serum or plasma immunoelectr ophoresis interpretation (nominal result)Ordered By: Dr. Dozier on 12-01-2022 Interpretation IEP [Interp] Comment: . [facility] Comment on above: Presence of monoclon al protein is unclear at this time. Suggestrepeat in 3 to 6 months if clinically indicated. Serum or plasma urea nitroge n measurement (mass/volume)Ordered By: Dr. Dozier on 12-01-2022 Urea nitrogen [Mass/Vol] 33 mg/dL 7-[address] [facility] Thin prep Papanicolaou smear with manual screeningOrdered By: Dr. Dozier on 12-01-2022 Thin prep Papanicolaou smear with manual screening 14 5-[address] [facility] Thin prep Papanicolaou smear with manual screening 1.1 0.7-1.[address] [facility] Total protein bloodOrdered B y: Dr. Dozier on 12-01-2022 Protein [Mass/Vol] 7.0 g/dL 6.0-8.5 [facility] Absolute lymphocyte countOrd ered By: Dr. Dozier on 10-06-2022 Lymphocytes Auto (Unsp spec) [#/Vol] 2.62 10*3/uL 0.83-4.[address] [facility] Basophil percentageOrdered B y: Dr. Dozier on 10-06-2022 Basophils/100 WBC (Bld) 0.9 % 0-1 [facility] Bilirubin [Mass/Vol] 0.20 mg/dL 0.20-1.00 [facility] Comment on above: For patients on eltr ombopag therapy, use of [facility] [place] TBIL is not recommended. Chloride [Moles/Vol] 101 mmol/L 98-107 [facility] Eosinophils/100 WBC (Bld) 2.2 % 0-[address] [facility] Glucose [Mass/Vol] 96 mg/dL 74-106 [facility] Neutrophils (Bld) [#/Vol] 7.5 10*3/uL 2.0-7.[address] [facility] Neutrophils/100 WBC (Bld) 66.2 % 47-[address] [facility] Potassium [Moles/Vol] 5.4 mmol/L 3.5-5.1 [facility] Protein [Mass/Vol] 8.2 g/dL 6.4-8.2 [facility] Sodium [Moles/Vol] 135 mmol/L 136-145 [facility] WBC (Bld) [#/Vol] 11.3 10*3/uL 4.4-11.0 [facility] Blood erythrocytes count (nu mber/volume)Ordered By: Dr. Dozier on 10-06-2022 RBC (Bld) [#/Vol] 4.86 10*6/uL 4.2-5.4 [facility] Blood hemoglobin measurement (mass/volume)Ordered By: Dr. Dozier on 10-06-2022 Hemoglobin (Bld) [Mass/Vol] 11.5 g/dL 12.0-15.[address] [facility] Blood lymphocytes/100 leukoc ytesOrdered By: Dr. Dozier on 10-06-2022 Lymphocytes/100 WBC (Bld) 23.2 % 19-[address] [facility] Blood monocytes/100 leukocyt esOrdered By: Dr. Dozier on 10-06-2022 Monocytes/100 WBC (Bld) 7.3 % 0-10 [facility] Blood platelet mean volumeOr dered By: Dr. Dozier on 10-06-2022 Platelet mean volume (Bld) [Entitic vol] 10.6 fL 6.2-12.[address] [facility] Determination of erythrocyte mean corpuscular volume (MCV)Ordered By: Dr. Dozier on 10-06-2022 MCV (RBC) [Entitic vol] 79.8 fL 81-99 [facility] Hematocrit Auto (Bld) [Volum e fraction]Ordered By: Dr. Dozier on 10-06-2022 Hematocrit (Bld) [Volume fraction] 38.8 % 37-[address] [facility] Laboratory - Chemistry and C hemistry - challengeOrdered By: Dr. Dozier on 10-06-2022 ALP [Catalytic activity/Vol] 84 U/L 45-[address] [facility] ALT [Catalytic activity/Vol] 25 U/L 13-[address] [facility] CO2 [Moles/Vol] 25.0 mmol/L 21.0-32.[address] [facility] Globulin (S) [Mass/Vol] 4.3 g/dL 2.2-4.2 [facility] Urea nitrogen/Creatinine [Mass ratio] 11.6 mg/mg 10-[address] [facility] Laboratory - Hematology and Cell countsOrdered By: Dr. Dozier on 10-06-2022 Erythrocyte distribution width (RBC) [Entitic vol] 48.3 fL 35.1-43.[address] [facility] Erythrocyte distribution width (RBC) [Ratio] 16.7 % 11.6-14.[address] [facility] Immature granulocytes/100 WBC (Bld) 0.200 % 0.0-0.[address] [facility] Comment on above: IG% - Immature Granu locytes (promyelocytes, myelocytes and metamyelocytes) > 1% indicates that a LEFT SHIFT is Present. MCH (RBC) [Entitic mass] 23.7 pg 27.0-32.[address] [facility] Nucleated RBC/100 WBC (Bld) [Ratio] 0 % 0-5 [facility] Auto (RBC) [Mass/Vol]Or dered By: Dr. Dozier on 10-06-2022 MCHC (RBC) [Mass/Vol] 29.6 g/dL 32-36 [facility] No Panel InformationOrdered By: Dr. Dozier on 10-06-2022 Estimated GFR (MDRD) Amer 34 mL/min >[address] [facility] Comment on above: GFR Calc Estimated GFR (MDRD) Non-Af Amer 28 mL/min >[address] [facility] Comment on above: Non- GFR Calc Free Lambda Light Chains, Quant 41.7 mg/L 5.7-26.[address] [facility] Thyroid Stimulating Hormone (TSH) 0.42 uIU/mL 0.358-3.[address] [facility] Vitamin B12 Level > 2000 pg/mL 211-911 [facility] Whole Blood Vitamin B1 Level 146.3 nmol/L 66.5-200.[address] [facility] Comment on above: Performed at: [facility] [address] [id number] Director: Myron Kennedy PhD, Phone: [phone] at: - [facility] [id number] Director: Braulio Rubio MD, Phone: [phone] Platelets bldOrdered By: Dr. Dozier on 10-06-2022 Platelets (Bld) [#/Vol] 513 10*3/uL 150-[address] [facility] Serum immunoglobulin kappa l ight chains/immunoglobulin lambda light chains mass ratioOrdered By: Dr. Dozier on 10-06-2022 Immunoglobulin light chains.kappa/Immunoglob ulin light chains.lambda (S) [Mass ratio] 1.34 0.26-1.[address] [facility] Serum or plasma albumin marivel urement (mass/volume)Ordered By: Dr. Dozier on 10-06-2022 Albumin [Mass/Vol] 3.9 g/dL 3.2-5.0 [facility] Serum or plasma albumin/glob ulin mass ratioOrdered By: Dr. Dozier on 10-06-2022 Albumin/Globulin [Mass ratio] 0.9 {ratio} 0.9-2.[address] [facility] Serum or plasma calcium marivel urement (mass/volume)Ordered By: Dr. Dozier on 10-06-2022 Calcium [Mass/Vol] 9.4 mg/dL 8.5-10.1 [facility] Serum or plasma creatinine m easurement (mass/volume)Ordered By: Dr. Dozeir on 10-06-2022 Creatinine [Mass/Vol] 1.90 mg/dL 0.55-1.02 [facility] Comment on above: The validity of the calculated GFR & GFRAA in patients over 70 years has not been determined. Clinical correlation is essential. Serum or plasma folate measu rement (mass/volume)Ordered By: Dr. Doizer on 10-06-2022 Folate [Mass/Vol] 6.60 ng/mL 3.1-55.[address] [facility] Serum or plasma immunoglobul in kappa light chains measurement (mass/volume)Ordered By: Dr. Dozier on 10-06-2022 Immunoglobulin light chains.kappa [Mass/Vol] 55.8 mg/L 3.3-19.[address] [facility] Serum or plasma urea nitroge n measurement (mass/volume)Ordered By: Dr. Dozier on 10-06-2022 Urea nitrogen [Mass/Vol] 22 mg/dL 7-[address] [facility] Thin prep Papanicolaou smear with manual screeningOrdered By: Dr. Dozier on 10-06-2022 Thin prep Papanicolaou smear with manual screening 16 U/L 15-[address] [facility] Thin prep Papanicolaou smear with manual screening 9 5-[address] [facility] Comprehensive metabolic 2000 panelon 07-08-2022 Albumin [Mass/Vol] 3.8 g/dL 3.2 - 5.2 g/dL [facility] ALP [Catalytic activity/Vol] 108 U/L 40 - 150 U/L [facility] ALT [Catalytic activity/Vol] 34 U/L 14 - 65 U/L [facility] Anion gap [Moles/Vol] 13 mmol/L 10 - 2 0 mmol/L [facility] AST [Catalytic activity/Vol] 28 U/L 0 - 45 U/L [facility] Bilirubin [Mass/Vol] 0.2 mg/dL 0 - 1.3 mg/dL [facility] Calcium [Mass/Vol] 8.7 mg/dL 8.4 - 10. 2 mg/dL [facility] Chloride [Moles/Vol] 99 mmol/L 98 - 10 8 mmol/L [facility] Creatinine [Mass/Vol] 1.93 mg/dL High 0.60 - 1.20 mg/dL [facility] GFR/1.73 sq M.predicted CKD-EPI (S/P/Bld) [Vol rate/Area] 29 Low - PINF [facility] Comment on above: Estimated GFR was ca lculated using the 2020 CKD-EPI creatinine equation. Glucose [Mass/Vol] 110 mg/dL High 65 - 99 mg/dL [facility] HCO3 [Moles/Vol] 27 mmol/L 21 - 32 mmol/L [facility] Potassium [Moles/Vol] 5.2 mmol/L High 3.5 - 5.1 mmol/L [facility] Protein [Mass/Vol] 7.8 g/dL 6 - 8 g/dL [facility] alth Sodium [Moles/Vol] 134 mmol/L Low 135 - 145 mmol/L [facility] Urea nitrogen [Mass/Vol] 27 mg/dL High 8 - 25 mg/dL [facility] Urea nitrogen/Creatinine [Mass ratio] 14.0 mg/mg 10 - 20 [facility] has implemented the eGFR calculation approach that does not have a coefficient for race that conforms to the NKF-ASN Task Force Recommendations. [facility] NT Pro BNPon 07-08-2022 Natriuretic peptide.B prohormone N-Terminal [Mass/Vol] 369 pg/mL High 0 - 300 pg/mL [facility] Natriuretic peptide.B prohor curly N-Terminal [Mass/Vol]on 07-08-2022 Pride Study Cut-offs Rule In: < /= 50 Years >450 pg/mL 51 Years - 75 Years >900 pg/mL 76 Years - 99 Years >1800 pg/mL Rule Out: All patients <300 pg/mL [facility] No Panel Informationon 07-08 Interpretation and review of laboratory results Abnormal [facility] CBC Auto Differentialon 06-07 Basophils (Bld) [#/Vol] 0.09 10*3/uL [facility] Basophils/100 WBC (Bld) 0.8 % [facility] Eosinophils (Bld) [#/Vol] 0.46 10*3/uL [facility] Eosinophils/100 WBC (Bld) 4.1 % [facility] Erythrocyte distribution width (RBC) [Entitic vol] 16.0 % High 11.6 - 14.8 % [facility] Hematocrit (Bld) [Volume fraction] 31.2 % Low 36 - 46 % [facility] Hemoglobin (Bld) [Mass/Vol] 9.1 g/dL Low 12 - 16 g/dL [facility] Immature granulocytes (Bld) [#/Vol] 0.24 10*3/uL [facility] Immature granulocytes/100 WBC (Bld) 2.10 % [facility] Comment on above: The IG parameter is the percentage of metamyelocytes, myelocytes and promyelocytes. An immature granulocyte count (IG) of 1% or more suggests the possibility of infection, an IG count of 3% is very likely related to an infection. Interpretation and review of laboratory results Abnormal [facility] Lymphocytes (Bld) [#/Vol] 2.12 10*3/uL [facility] Lymphocytes/100 WBC (Bld) 18.8 % [facility] MCH (RBC) [Entitic mass] 24.3 pg Low 26 - 34 pg [facility] MCHC (RBC) [Mass/Vol] 29.2 g/dL Low 31 - 37 g/dL [facility] MCV (RBC) [Entitic vol] 83.2 fL 80 - 100 fL [facility] Monocytes (Bld) [#/Vol] 1.08 10*3/uL High [facility] Monocytes/100 WBC (Bld) 9.6 % [facility] Neutrophils (Bld) [#/Vol] 7.26 10*3/uL High [facility] Neutrophils/100 WBC (Bld) 64.6 % [facility] Nucleated RBC (Bld) [#/Vol] 0.00 10*3/uL [facility] Nucleated RBC/100 WBC (Bld) [Ratio] 0.0 % [facility] Platelet mean volume (Bld) [Entitic vol] 9.9 fL 9.4 - 12.4 fL [facility] Platelets (Bld) [#/Vol] 423 10*3/uL High [facility] RBC (Bld) [#/Vol] 3.75 10*6/uL Low [facility] ealth WBC (Bld) [#/Vol] 11.25 10*3/uL High [facility] CK [Catalytic activity/Vol]o n 06-29-2022 Interpretation and review of laboratory results Abnormal [facility] CPK NO MBon 06-29-2022 CK [Catalytic activity/Vol] 698 U/L High 40 - 170 U/L [facility] Glucose (Bld) [Mass/Vol]on 0 06-29-2022 Glucose [Mass/Vol] 94 mg/dL 65 - 99 mg/dL [facility] Interpretation and review of laboratory results Normal [facility] Magnesium Levelon 06-29-2022 Magnesium [Mass/Vol] 1.8 mg/dL 1.6 - 2 .4 mg/dL [facility] Magnesium [Mass/Vol]on 06-29 Interpretation and review of laboratory results Normal [facility] Renal function 2000 panelon 06-29-2022 Albumin [Mass/Vol] 2.9 g/dL Low 3.2 - 5.2 g/dL [facility] Anion gap [Moles/Vol] 13 mmol/L 10 - 2 0 mmol/L [facility] Calcium [Mass/Vol] 8.0 mg/dL Low 8.4 - 10. 2 mg/dL [facility] Chloride [Moles/Vol] 106 mmol/L 98 - 10 8 mmol/L [facility] Creatinine [Mass/Vol] 1.85 mg/dL High 0.60 - 1.20 mg/dL [facility] GFR/1.73 sq M.predicted CKD-EPI (S/P/Bld) [Vol rate/Area] 30 Low - PINF [facility] Comment on above: Estimated GFR was ca lculated using the 2020 CKD-EPI creatinine equation. Glucose [Mass/Vol] 91 mg/dL 65 - 99 mg/dL [facility] HCO3 [Moles/Vol] 25 mmol/L 21 - 32 mmol/L [facility] Interpretation and review of laboratory results Abnormal [facility] Phosphate [Mass/Vol] 5.4 mg/dL High 2.8 - 4 .1 mg/dL [facility] Potassium [Moles/Vol] 5.1 mmol/L 3.5 - 5.1 mmol/L [facility] Sodium [Moles/Vol] 139 mmol/L 135 - 145 mmol/L [facility] Urea nitrogen [Mass/Vol] 26 mg/dL High 8 - 25 mg/dL [facility] Urea nitrogen/Creatinine [Mass ratio] 14.1 mg/mg 10 - 20 [facility] has implemented the eGFR calculation approach that does not have a coefficient for race that conforms to the NKF-ASN Task Force Recommendations. [facility] CBC Auto Differentialon 06-07 Basophils (Bld) [#/Vol] 0.06 10*3/uL [facility] Basophils/100 WBC (Bld) 0.5 % [facility] Eosinophils (Bld) [#/Vol] 0.09 10*3/uL [facility] Eosinophils/100 WBC (Bld) 0.8 % [facility] Erythrocyte distribution width (RBC) [Entitic vol] 15.9 % High 11.6 - 14.8 % [facility] Hematocrit (Bld) [Volume fraction] 29.0 % Low 36 - 46 % [facility] Hemoglobin (Bld) [Mass/Vol] 8.9 g/dL Low 12 - 16 g/dL [facility] Immature granulocytes (Bld) [#/Vol] 0.31 10*3/uL High [facility] Immature granulocytes/100 WBC (Bld) 2.60 % [facility] Comment on above: The IG parameter is the percentage of metamyelocytes, myelocytes and promyelocytes. An immature granulocyte count (IG) of 1% or more suggests the possibility of infection, an IG count of 3% is very likely related to an infection. Interpretation and review of laboratory results Abnormal [facility] Lymphocytes (Bld) [#/Vol] 1.98 10*3/uL [facility] Lymphocytes/100 WBC (Bld) 16.8 % [facility] MCH (RBC) [Entitic mass] 24.5 pg Low 26 - 34 pg [facility] MCHC (RBC) [Mass/Vol] 30.7 g/dL Low 31 - 37 g/dL [facility] MCV (RBC) [Entitic vol] 79.9 fL Low 80 - 100 fL [facility] Monocytes (Bld) [#/Vol] 0.99 10*3/uL High [facility] Monocytes/100 WBC (Bld) 8.4 % [facility] Neutrophils (Bld) [#/Vol] 8.39 10*3/uL High [facility] Neutrophils/100 WBC (Bld) 70.9 % [facility] Nucleated RBC (Bld) [#/Vol] 0.00 10*3/uL [facility] Nucleated RBC/100 WBC (Bld) [Ratio] 0.0 % [facility] Platelet mean volume (Bld) [Entitic vol] 9.3 fL Low 9.4 - 12.4 fL [facility] Platelets (Bld) [#/Vol] 406 10*3/uL High [facility] RBC (Bld) [#/Vol] 3.63 10*6/uL Low [facility]alth WBC (Bld) [#/Vol] 11.82 10*3/uL High [facility] CK [Catalytic activity/Vol]o n 06-28-2022 Interpretation and review of laboratory results Abnormal [facility] CPK NO MBon 06-28-2022 CK [Catalytic activity/Vol] 1164 U/L High 40 - 170 U/L [facility] Glucose (Bld) [Mass/Vol]on 0 06-28-2022 Glucose [Mass/Vol] 118 mg/dL High 65 - 99 mg/dL [facility] Interpretation and review of laboratory results Abnormal [facility] Glucose [Mass/Vol] 99 mg/dL 65 - 99 mg/dL [facility] Interpretation and review of laboratory results Normal [facility] Glucose [Mass/Vol] 82 mg/dL 65 - 99 mg/dL [facility] Interpretation and review of laboratory results Normal [facility] Glucose [Mass/Vol] 83 mg/dL 65 - 99 mg/dL [facility] Interpretation and review of laboratory results Normal [facility] Hepatic function 2000 panelo n 06-28-2022 Albumin [Mass/Vol] 2.8 g/dL Low 3.2 - 5.2 g/dL [facility] ALP [Catalytic activity/Vol] 82 U/L 40 - 150 U/L [facility] ALT [Catalytic activity/Vol] 97 U/L High 14 - 65 U/L [facility] AST [Catalytic activity/Vol] 64 U/L High 0 - 45 U/L [facility] Bilirubin [Mass/Vol] 0.2 mg/dL 0 - 1.3 mg/dL [facility] Bilirubin.conjugated [Mass/Vol] mg/dL 0 - 0.4 mg/dL [facility] Interpretation and review of laboratory results Abnormal [facility] Protein [Mass/Vol] 6.1 g/dL 6 - 8 g/dL [facility] Iron Study with Ferritinon 0 06-28-2022 Ferritin [Mass/Vol] 46 ng/mL 13 - 150 ng/mL [facility] Interpretation and review of laboratory results Abnormal [facility] Iron [Mass/Vol] 40 ug/dL [facility] Iron binding capacity [Mass/Vol] 255 [facility] Iron saturation [Mass fraction] 16 % Low 20 - 50 % [facility] Lipaseon 06-28-2022 Lipase [Catalytic activity/Vol] 228 U/L 73 - 393 U/L [facility] Lipase [Catalytic activity/V ol]on 06-28-2022 Interpretation and review of laboratory results Normal [facility] Magnesium Levelon 06-28-2022 Magnesium [Mass/Vol] 1.4 mg/dL Low 1.6 - 2 .4 mg/dL [facility] Magnesium [Mass/Vol]on 06-28 Interpretation and review of laboratory results Abnormal [facility] Renal function 2000 panelon 06-28-2022 Albumin [Mass/Vol] 2.9 g/dL Low 3.2 - 5.2 g/dL [facility] Anion gap [Moles/Vol] 12 mmol/L 10 - 2 0 mmol/L [facility] Calcium [Mass/Vol] 8.0 mg/dL Low 8.4 - 10. 2 mg/dL [facility] Chloride [Moles/Vol] 104 mmol/L 98 - 10 8 mmol/L [facility] Creatinine [Mass/Vol] 1.85 mg/dL High 0.60 - 1.20 mg/dL [facility] GFR/1.73 sq M.predicted CKD-EPI (S/P/Bld) [Vol rate/Area] 30 Low - PINF [facility] Comment on above: Estimated GFR was ca lculated using the 2020 CKD-EPI creatinine equation. Glucose [Mass/Vol] 92 mg/dL 65 - 99 mg/dL [facility] HCO3 [Moles/Vol] 27 mmol/L 21 - 32 mmol/L [facility] Interpretation and review of laboratory results Abnormal [facility] Phosphate [Mass/Vol] 5.2 mg/dL High 2.8 - 4 .1 mg/dL [facility] Potassium [Moles/Vol] 4.7 mmol/L 3.5 - 5.1 mmol/L [facility] Sodium [Moles/Vol] 138 mmol/L 135 - 145 mmol/L [facility] Urea nitrogen [Mass/Vol] 29 mg/dL High 8 - 25 mg/dL [facility] Urea nitrogen/Creatinine [Mass ratio] 15.7 mg/mg 10 - 20 [facility] has implemented the eGFR calculation approach that does not have a coefficient for race that conforms to the NKF-ASN Task Force Recommendations. [facility] Tissue Transglutaminase, IgA on 06-28-2022 Interpretation and review of laboratory results Normal [facility] Tissue Transglutaminase, IgA [facility] Comment on above: Reference Ranges: <20 CU Negative 20-30 CU Weak Positive >30 CU Positive The following results were obtained with the hoozinA Flash h-tTG IgA chemiluminescent immunoassay. Values obtained with different manufacturers' assay methods may not be used interchangeably. [facility] CBC Auto Differentialon 06-07 Basophils (Bld) [#/Vol] 0.04 10*3/uL [facility] Basophils/100 WBC (Bld) 0.3 % [facility] Eosinophils (Bld) [#/Vol] 0.01 10*3/uL [facility] Eosinophils/100 WBC (Bld) 0.1 % [facility] Erythrocyte distribution width (RBC) [Entitic vol] 15.8 % High 11.6 - 14.8 % [facility] Hematocrit (Bld) [Volume fraction] 29.5 % Low 36 - 46 % [facility] Hemoglobin (Bld) [Mass/Vol] 9.0 g/dL Low 12 - 16 g/dL [facility] Immature granulocytes (Bld) [#/Vol] 0.17 10*3/uL [facility] Immature granulocytes/100 WBC (Bld) 1.30 % [facility] Comment on above: The IG parameter is the percentage of metamyelocytes, myelocytes and promyelocytes. An immature granulocyte count (IG) of 1% or more suggests the possibility of infection, an IG count of 3% is very likely related to an infection. Interpretation and review of laboratory results Abnormal [facility] Lymphocytes (Bld) [#/Vol] 1.07 10*3/uL [facility] Lymphocytes/100 WBC (Bld) 8.3 % [facility] MCH (RBC) [Entitic mass] 24.1 pg Low 26 - 34 pg [facility] MCHC (RBC) [Mass/Vol] 30.5 g/dL Low 31 - 37 g/dL [facility] MCV (RBC) [Entitic vol] 79.1 fL Low 80 - 100 fL [facility] Monocytes (Bld) [#/Vol] 0.94 10*3/uL High [facility] Monocytes/100 WBC (Bld) 7.3 % [facility] (Bld) [#/Vol] 10.63 10*3/uL High [facility] Neutrophils/100 WBC (Bld) 82.7 % [facility] Nucleated RBC (Bld) [#/Vol] 0.00 10*3/uL [facility] Nucleated RBC/100 WBC (Bld) [Ratio] 0.0 % [facility] Platelet mean volume (Bld) [Entitic vol] 9.7 fL 9.4 - 12.4 fL [facility] Hospital Platelets (Bld) [#/Vol] 379 10*3/uL [facility] RBC (Bld) [#/Vol] 3.73 10*6/uL Low [facility] ealt WBC (Bld) [#/Vol] 12.86 10*3/uL [facility] CK [Catalytic activity/Vol]o n 06-27-2022 Interpretation and review of laboratory results Abnormal [facility] CPK NO MBon 06-27-2022 CK [Catalytic activity/Vol] 918 U/L High 40 - 170 U/L [facility] Glucose (Bld) [Mass/Vol]on 0 06-27-2022 Glucose [Mass/Vol] 126 mg/dL High 65 - 99 mg/dL [facility] Interpretation and review of laboratory results Abnormal [facility] Glucose [Mass/Vol] 162 mg/dL High 65 - 99 mg/[facility] Interpretation and review of laboratory results Abnormal [facility] Glucose [Mass/Vol] 112 mg/dL High 65 - 99 mg/dL [facility] Interpretation and review of laboratory results Abnormal [facility] Magnesium Levelon 06-27-2022 Magnesium [Mass/Vol] 1.6 mg/dL 1.6 - 2 .4 mg/dL [facility] Magnesium [Mass/Vol]on 06-27 Interpretation and review of laboratory results Normal [facility] Renal function 2000 panelon 06-27-2022 Albumin [Mass/Vol] 3.0 g/dL Low 3.2 - 5.2 g/dL [facility] Anion gap [Moles/Vol] 11 mmol/L 10 - 2 0 mmol/L [facility] Calcium [Mass/Vol] 8.6 mg/dL 8.4 - 10. 2 mg/dL [facility] Chloride [Moles/Vol] 101 mmol/L 98 - 10 8 mmol/L [facility] Creatinine [Mass/Vol] 1.85 mg/dL High 0.60 - 1.20 mg/dL [facility] GFR/1.73 sq M.predicted CKD-EPI (S/P/Bld) [Vol rate/Area] 30 Low - PINF [facility] Comment on above: Estimated GFR was ca lculated using the 2020 CKD-EPI creatinine equation. Glucose [Mass/Vol] 104 mg/dL High 65 - 99 mg/dL [facility] HCO3 [Moles/Vol] 27 mmol/L 21 - 32 mmol/L [facility] Interpretation and review of laboratory results Abnormal [facility] Phosphate [Mass/Vol] 3.7 mg/dL 2.8 - 4 .1 mg/dL [facility] Potassium [Moles/Vol] 4.4 mmol/L 3.5 - 5.1 mmol/L [facility] Sodium [Moles/Vol] 135 mmol/L 135 - 145 mmol/L [facility] Urea nitrogen [Mass/Vol] 28 mg/dL High 8 - 25 mg/dL [facility] Urea nitrogen/Creatinine [Mass ratio] 15.1 mg/mg 10 - 20 [facility] has implemented the eGFR calculation approach that does not have a coefficient for race that conforms to the NKF-ASN Task Force Recommendations. [facility] Bacteria identified Cx Nom ( Bld)on 06-26-2022 Interpretation and review of laboratory results Normal [facility] CBC Auto Differentialon 06-07 Basophils (Bld) [#/Vol] 0.06 10*3/uL [facility] Basophils/100 WBC (Bld) 0.6 % [facility] Eosinophils (Bld) [#/Vol] 0.24 10*3/uL [facility] Eosinophils/100 WBC (Bld) 2.4 % [facility] Erythrocyte distribution width (RBC) [Entitic vol] 15.8 % High 11.6 - 14.8 % [facility] Hematocrit (Bld) [Volume fraction] 31.1 % Low 36 - 46 % [facility] Hemoglobin (Bld) [Mass/Vol] 9.6 g/dL Low 12 - 16 g/dL [facility] Immature granulocytes (Bld) [#/Vol] 0.11 10*3/uL [facility] Immature granulocytes/100 WBC (Bld) 1.10 % [facility] Comment on above: The IG parameter is the percentage of metamyelocytes, myelocytes and promyelocytes. An immature granulocyte count (IG) of 1% or more suggests the possibility of infection, an IG count of 3% is very likely related to an infection. Interpretation and review of laboratory results Abnormal [facility] Lymphocytes (Bld) [#/Vol] 1.22 10*3/uL [facility] Lymphocytes/100 WBC (Bld) 12.2 % [facility] MCH (RBC) [Entitic mass] 24.6 pg Low 26 - 34 pg [facility] MCHC (RBC) [Mass/Vol] 30.9 g/dL Low 31 - 37 g/dL [facility] MCV (RBC) [Entitic vol] 79.7 fL Low 80 - 100 fL [facility] Monocytes (Bld) [#/Vol] 0.84 10*3/uL [facility] Monocytes/100 WBC (Bld) 8.4 % [facility] Neutrophils (Bld) [#/Vol] 7.57 10*3/uL High [facility] Neutrophils/100 WBC (Bld) 75.3 % [facility] Nucleated RBC (Bld) [#/Vol] 0.00 10*3/uL [facility] Nucleated RBC/100 WBC (Bld) [Ratio] 0.0 % [facility] Platelet mean volume (Bld) [Entitic vol] 9.8 fL 9.4 - 12.4 fL [facility] Platelets (Bld) [#/Vol] 400 10*3/uL [facility] RBC (Bld) [#/Vol] 3.90 10*6/uL Low [facility] W[facility] (Bld) [#/Vol] 9.89 10*3/uL [facility] CK [Catalytic activity/Vol]o n 06-26-2022 Interpretation and review of laboratory results Abnormal [facility] CPK NO MBon 06-26-2022 CK [Catalytic activity/Vol] 1703 U/L High 40 - 170 U/L [facility] Glucose (Bld) [Mass/Vol]on 0 06-26-2022 Glucose [Mass/Vol] 225 mg/dL High 65 - 99 mg/dL [facility] Interpretation and review of laboratory results Abnormal [facility] Glucose [Mass/Vol] 134 mg/dL High 65 - 99 mg/dL [facility] Interpretation and review of laboratory results Abnormal [facility] Glucose [Mass/Vol] 121 mg/dL High 65 - 99 mg/dL [facility] Interpretation and review of laboratory results Abnormal [facility] Glucose [Mass/Vol] 109 mg/dL High 65 - 99 mg/dL [facility] Interpretation and review of laboratory results Abnormal [facility] Laboratory - Microbiology an d Antimicrobial susceptibilityon 06-26-2022 Bacteria identified Cx Nom (Bld) No Growth [facility] Magn[facility] Levelon 06-26-2022 Magnesium [Mass/Vol] 1.6 mg/dL 1.6 - 2 .4 mg/dL [facility] Magnesium [Mass/Vol]on 06-26 Interpretation and review of laboratory results Normal [facility] Renal function 2000 panelon 06-26-2022 Albumin [Mass/Vol] 3.0 g/dL Low 3.2 - 5.2 g/dL [facility] Anion gap [Moles/Vol] 13 mmol/L 10 - 2 0 mmol/L [facility] Calcium [Mass/Vol] 8.6 mg/dL 8.4 - 10. 2 mg/dL [facility] Chloride [Moles/Vol] 102 mmol/L 98 - 10 8 mmol/L [facility] Creatinine [Mass/Vol] 1.87 mg/dL High 0.60 - 1.20 mg/dL [facility] GFR/1.73 sq M.predicted CKD-EPI (S/P/Bld) [Vol rate/Area] 30 Low - PINF [facility] Comment on above: Estimated GFR was ca lculated using the 2020 CKD-EPI creatinine equation. Glucose [Mass/Vol] 105 mg/dL High 65 - 99 mg/dL [facility] HCO3 [Moles/Vol] 26 mmol/L 21 - 32 mmol/L [facility] Interpretation and review of laboratory results Abnormal [facility] Phosphate [Mass/Vol] 4.5 mg/dL High 2.8 - 4 .1 mg/dL [facility] Potassium [Moles/Vol] 4.6 mmol/L 3.5 - 5.1 mmol/L [facility] Sodium [Moles/Vol] 136 mmol/L 135 - 145 mmol/L [facility] Urea nitrogen [Mass/Vol] 23 mg/dL 8 - 25 mg/dL [facility] Urea nitrogen/Creatinine [Mass ratio] 12.3 mg/mg [facility] has implemented the eGFR calculation approach that does not have a coefficient for race that conforms to the NKF-ASN Task Force Recommendations. [facility] XR Chest 1 Viewon 06-26-2022 No acute cardiopulmonary abnormality. [facility]/ Workstation ID: [id number] Portable Scores EXAMINATION: XR CHEST PA/AP 06/25/2022 1:41 pm [...] abdomen are unremarkable. No acute osseous abnormalities. Portable Scores Huy Dial M D - 06/26/2022 EXAMINATION: XR CHEST [...] osseous abnormalities. IMPRESSION: No acute cardiopulmonary abnormality. [facility]/ Workstation ID: [id number] [facility] XR Chest 1 ViewOrdered By: Virgil Dial on 06-26-2022 [facility] Work Phone: CBC Auto Differentialon 06-07 Basophils (Bld) [#/Vol] 0.05 10*3/uL [facility] Basophils/100 WBC (Bld) 0.6 % [facility] Eosinophils (Bld) [#/Vol] 0.18 10*3/uL [facility] Eosinophils/100 WBC (Bld) 2.3 % [facility] Erythrocyte distribution width (RBC) [Entitic vol] 15.5 % High 11.6 - 14.8 % [facility] Hematocrit (Bld) [Volume fraction] 28.6 % Low 36 - 46 % [facility] Hemoglobin (Bld) [Mass/Vol] 8.6 g/dL Low 12 - 16 g/dL [facility] Immature granulocytes (Bld) [#/Vol] 0.04 10*3/uL [facility] Immature granulocytes/100 WBC (Bld) 0.50 % [facility] Comment on above: The IG parameter is the percentage of metamyelocytes, myelocytes and promyelocytes. An immature granulocyte count (IG) of 1% or more suggests the possibility of infection, an IG count of 3% is very likely related to an infection. Interpretation and review of laboratory results Abnormal [facility] Lymphocytes (Bld) [#/Vol] 0.99 10*3/uL [facility] Lymphocytes/100 WBC (Bld) 12.7 % [facility] MCH (RBC) [Entitic mass] 24.3 pg Low 26 - 34 pg [facility] MCHC (RBC) [Mass/Vol] 30.1 g/dL Low 31 - 37 g/dL [facility] MCV (RBC) [Entitic vol] 80.8 fL 80 - 100 fL [facility] Monocytes (Bld) [#/Vol] 0.57 10*3/uL [facility] Monocytes/100 WBC (Bld) 7.3 % [facility] Neutrophils (Bld) [#/Vol] 5.94 10*3/uL [facility] Neutrophils/100 WBC (Bld) 76.6 % [facility] Nucleated RBC (Bld) [#/Vol] 0.00 10*3/uL [facility] Nucleated RBC/100 WBC (Bld) [Ratio] 0.0 % [facility] Platelet mean volume (Bld) [Entitic vol] 9.4 fL 9.4 - 12.4 fL [facility] Platelets (Bld) [#/Vol] 279 10*3/uL [facility] RBC (Bld) [#/Vol] 3.54 10*6/uL Low [facility] ealt WBC (Bld) [#/Vol] 7.77 10*3/uL [facility] CK [Catalytic activity/Vol]o n 06-25-2022 Interpretation and review of laboratory results Abnormal [facility] COVID-19, MolecularOrdered B y: Katina Cortés on 06-25-2022 SARS-CoV-2 (COVID-19) RNA CATRINA+probe Ql (Resp) Not detected Not Detected [facility] th CPK NO MBon 06-25-2022 CK [Catalytic activity/Vol] 4769 U/L High 40 - 170 U/L [facility] ECG 12 Leadon 06-25-2022 Atrial Rate 85 BPM [facility] P [place] 75 degrees [facility] P-R Interval 152 ms [facility] Q-T Interval 356 ms [facility] QRS Duration 88 ms [facility] QTC Calculation (Bezet) 423 ms [facility] R [place] 37 degrees [facility] T [place] 52 degrees [facility] Ventricular Rate 85 BPM [facility] Normal sinus rhythm Normal ECG Confirmed by Jean-Pierre Middleton MD ([id number]) on 06/25/2022 12:32:18 PM MUSE [facility] Glucose (Bld) [Mass/Vol]on 0 06-25-2022 Glucose [Mass/Vol] 119 mg/dL High 65 - 99 mg/dL [facility] Interpretation and review of laboratory results Abnormal [facility] Glucose [Mass/Vol] 98 mg/dL 65 - 99 mg/dL [facility] Interpretation and review of laboratory results Normal [facility] Glucose [Mass/Vol] 119 mg/dL High 65 - 99 mg/dL [facility] Interpretation and review of laboratory results Abnormal [facility] Glucose [Mass/Vol] 107 mg/dL High 65 - 99 mg/dL [facility] Interpretation and review of laboratory results Abnormal [facility] Magnesium Levelon 06-25-2022 Magnesium [Mass/Vol] 1.5 mg/dL Low 1.6 - 2 .4 mg/dL [facility] No Panel Informationon 06-25 Interpretation and review of laboratory results Abnormal [facility] Renal function 2000 panelon 06-25-2022 Albumin [Mass/Vol] 2.7 g/dL Low 3.2 - 5.2 g/dL [facility] Anion gap [Moles/Vol] 15 mmol/L 10 - 2 0 mmol/L [facility] Calcium [Mass/Vol] 8.6 mg/dL 8.4 - 10. 2 mg/dL [facility] Chloride [Moles/Vol] 106 mmol/L 98 - 10 8 mmol/L [facility] Creatinine [Mass/Vol] 2.05 mg/dL High 0.60 - 1.20 mg/dL [facility] GFR/1.73 sq M.predicted CKD-EPI (S/P/Bld) [Vol rate/Area] 27 Low - PINF [facility] Comment on above: Estimated GFR was ca lculated using the 2020 CKD-EPI creatinine equation. Glucose [Mass/Vol] 94 mg/dL 65 - 99 mg/dL [facility] HCO3 [Moles/Vol] 23 mmol/L 21 - 32 mmol/L [facility] Phosphate [Mass/Vol] 4.4 mg/dL High 2.8 - 4 .1 mg/dL [facility] Potassium [Moles/Vol] 5.1 mmol/L 3.5 - 5.1 mmol/L [facility] Sodium [Moles/Vol] 139 mmol/L 135 - 145 mmol/L [facility] Urea nitrogen [Mass/Vol] 28 mg/dL High 8 - 25 mg/dL [facility] Urea nitrogen/Creatinine [Mass ratio] 13.7 mg/mg 10 - 20 [facility] has implemented the eGFR calculation approach that does not have a coefficient for race that conforms to the NKF-ASN Task Force Recommendations. [facility] SARS-CoV-2 (COVID-19) RNA NA A+probe Ql (Resp)Ordered By: Katina Cortés on 06-25-2022 Interpretation and review of laboratory results Normal [facility] This test was perfor med [...] the following links: For Healthcare Providers: https://www.fda.gov/med ia/642245/download For Patients: https://www.fda.gov/med ia/126088/download [facility] XR Chest 1 Viewon 06-25-2022 Radiology Study observation (narrative) [facility] Auto Differential[place] 06-06 Basophils (Bld) [#/Vol] 0.03 10*3/uL [facility] Basophils/100 WBC (Bld) 0.4 % [facility] Eosinophils (Bld) [#/Vol] 0.12 10*3/uL [facility] Eosinophils/100 WBC (Bld) 1.6 % [facility] Erythrocyte distribution width (RBC) [Entitic vol] 15.3 % High 11.6 - 14.8 % [facility] Hematocrit (Bld) [Volume fraction] 29.6 % Low 36 - 46 % [facility] Hemoglobin (Bld) [Mass/Vol] 8.6 g/dL Low 12 - 16 g/dL [facility] Immature granulocytes (Bld) [#/Vol] 0.04 10*3/uL [facility] Immature granulocytes/100 WBC (Bld) 0.50 % [facility] Comment on above: The IG parameter is the percentage of metamyelocytes, myelocytes and promyelocytes. An immature granulocyte count (IG) of 1% or more suggests the possibility of infection, an IG count of 3% is very likely related to an infection. Interpretation and review of laboratory results Abnormal [facility] Lymphocytes (Bld) [#/Vol] 0.86 10*3/uL Low [facility] Lymphocytes/100 WBC (Bld) 11.4 % [facility] MCH (RBC) [Entitic mass] 24.2 pg Low 26 - 34 pg [facility] MCHC (RBC) [Mass/Vol] 29.1 g/dL Low 31 - 37 g/dL [facility] MCV (RBC) [Entitic vol] 83.4 fL 80 - 100 fL [facility] Monocytes (Bld) [#/Vol] 0.56 10*3/uL [facility] Monocytes/100 WBC (Bld) 7.4 % [facility] Neutrophils (Bld) [#/Vol] 5.93 10*3/uL [facility] Neutrophils/100 WBC (Bld) 78.7 % [facility] Nucleated RBC (Bld) [#/Vol] 0.00 10*3/uL [facility] Nucleated RBC/100 WBC (Bld) [Ratio] 0.0 % [facility] Platelet mean volume (Bld) [Entitic vol] 9.4 fL 9.4 - 12.4 fL [facility] Platelets (Bld) [#/Vol] 281 10*3/uL [facility] RBC (Bld) [#/Vol] 3.55 10*6/uL Low [facility] WBC (Bld) [#/Vol] 7.54 10*3/uL [facility] eah [facility] CK [Catalytic activity/Vol]o n 06-24-2022 Interpretation and review of laboratory results Abnormal [facility] CPK NO MBon 06-24-2022 CK [Catalytic activity/Vol] 90538 U/L High 40 - 170 U/L [facility] Glucose (Bld) [Mass/Vol]on 0 06-24-2022 Glucose [Mass/Vol] 100 mg/dL High 65 - 99 mg/dL [facility] Interpretation and review of laboratory results Abnormal [facility] Glucose [Mass/Vol] 82 mg/dL 65 - 99 mg/dL [facility] Interpretation and review of laboratory results Normal [facility] Glucose [Mass/Vol] 96 mg/dL 65 - 99 mg/dL [facility] Interpretation and review of laboratory results Normal [facility] Glucose [Mass/Vol] 91 mg/dL 65 - 99 mg/dL [facility] Interpretation and review of laboratory results Normal [facility] Magnesium Levelon 06-24-2022 Magnesium [Mass/Vol] 1.7 mg/dL 1.6 - 2 .4 mg/dL [facility] Magnesium [Mass/Vol]on 06-24 Interpretation and review of laboratory results Normal [facility] Renal function 2000 panelon 06-24-2022 Albumin [Mass/Vol] 2.7 g/dL Low 3.2 - 5.2 g/dL [facility] Anion gap [Moles/Vol] 13 mmol/L 10 - 2 0 mmol/L [facility] Calcium [Mass/Vol] 8.5 mg/dL 8.4 - 10. 2 mg/dL [facility] Chloride [Moles/Vol] 107 mmol/L 98 - 10 8 mmol/L [facility] Creatinine [Mass/Vol] 2.48 mg/dL High 0.60 - 1.20 mg/dL [facility] GFR/1.73 sq M.predicted CKD-EPI (S/P/Bld) [Vol rate/Area] 21 Low - PINF [facility] Comment on above: Estimated GFR was ca lculated using the 2020 CKD-EPI creatinine equation. Glucose [Mass/Vol] 80 mg/dL 65 - 99 mg/dL [facility] HCO3 [Moles/Vol] 21 mmol/L 21 - 32 mmol/L [facility] Interpretation and review of laboratory results Abnormal [facility] Phosphate [Mass/Vol] 4.6 mg/dL High 2.8 - 4 .1 mg/dL [facility] Potassium [Moles/Vol] 5.3 mmol/L High 3.5 - 5.1 mmol/L [facility] Sodium [Moles/Vol] 136 mmol/L 135 - 145 mmol/L [facility] Urea nitrogen [Mass/Vol] 34 mg/dL High 8 - 25 mg/dL [facility] Urea nitrogen/Creatinine [Mass ratio] 13.7 mg/mg 10 - 20 [facility] has implemented the eGFR calculation approach that does not have a coefficient for race that conforms to the NKF-ASN Task Force Recommendations. [facility] Tissue ExamOrdered By: Marco A garcia on 06-24-2022 Case Report Surgical Pathology Report Case: [id number] Authorizing Provider: Tyshawn Santos, Collected: 06/23/2022 12:36 PM Ordering Location: [facility] Received: 06/23/2022 01:21 PM Endoscopy Pathologist: Marco A Romero DO Specimens: A) - Colon, Sigmoid Colon B) - Rectum [facility] Work Phone: Pathology report final diagnosis Narrative f6ploRKySGAdgPEpNWNfVYt nrwLvCSWawQWfD5LwxtdnVE uhYN4dTT0gvDlwrWFikLMdV WUvEuPtu8wno815eDCgn7gu VDYSvirihUa5zRpuL97km0X 7KpyiM4gaWVQkZBztKYQcRV hpyILaNZl1WMRcyVXdxzAlF pSqFJRuhYQgfQJ3YGBgEK7l oewuFWcvPHdtTCCbbdX6CMA kcRQvI1HrQMTfTD5yhvjaAV B4EWubBTWtHGQ4YbMfKZKdi 6Kvhka8YkZrlXZbYWsheDZp cuozPFAyNtGgYP6fUBgfzo8 6CYG8j7lrwVXoAQtcEqwgmJ FbmoD2VUoSZKNRDCyPXiGgZ Y0tIKdUP4MBYFcJWsyqIFX1 JDkefWP0w1zxdWCnt3h7AVf lLWD5bMLaaE0tFFO5BDVlCV lyd1oaLYGfNYzxv4UwPNtSN SGITG0SLK5aiTG4UAoIQHET Y0dAkSK4WCHjbXC6i9okrUH it1s7ENayZIS3xBVwN25evZ X4ZZHbRFzce0ooCPJqRJjqz 7GfQAdHCMRBIE1OFW6djTP6 WHzFTCYFYUndBHP2ZOcagHd jQmhbirJgkQJsThQcfN2rnA dqqV7xtRTtqIRuqPehQVImP eCuRCI5IPUrEYqwg2rwNWWy ZYaqm7RkYWhXXBGCDE5EBA9 kyTY2ZLuNOVBOJ4aEpQA2IT L7gNZ5u7sgcKDea5p3TVsaX RM1oHTlx8UwgZedSlrszIL2 SZirGdsboT4gsTMBROHULta MTwrmmdEdWK1SJXCFBK4TmB U4OMP3uFI7b0ulaQPxo0v8N WxqZLK5hJprrOBovvdmbn95 MTX6WCEnGcGjMYF6v3bgeNZ zGDyjWusaxBFwmhH5DQgNRL ZRFYbUItBaUZ2bFQjOZ1SKE hB7KvGtZHF1MIpdhLlhAwgy qlOhqZZfBmQfnA2enKubpD5 cYlxmczIwXHBhclxsaTcyMF qibW13WmHzKvYlY56bv56yL tDgtTFcu8Owz0a4aC82cLZq cZNenn0rvAaxHQTokl1igUT fnVT6DukwUBIdbPyuZJtfbk ArkLFeJQFmRr4yTZvfpa02G NX7u3adcWRiFUjsAuucfDMa scT6XZjGFPQGOFmLDnOeXE3 mMOgIP9WKRUkPNllrRVV1PP t7iNQ9x7ekqBIyn1d0SCwmB EC9uZStgW4cWTR7QHXzZQcg y3xwLNRwAMdec4NnRRgDPQM QJX4MCO7emNX5LMwBXVMOG7 qNkED1SPTgvQB5u7damBAgf 7i0KIphPAG1hLThZ3B0wBex NcdqzLI3GXkkGfbznP9zhWW TMAQGMpnUGybobeUkNR6QGK AYXJ0YyXZ8PGPymFF7t5zgi UTzj9f4VVluJML4rQogcETi gtfxlh83QDW4APBqVkWdVQP hELquCrsshUM3PJgxQkqtaY 5zdCBIWVBFUkxJTksgbmFtZ X6AVNLIBjGNBS28KvU0OAo0 Zh48ZMEwSBKwjIMpXFnhM57 5ZfazxBV5d8kagSShTDhgRi mihXLprfW4EIdYBUBNAIxZR eEsQK1eLUnFR0GEZqL6IoE8 NMj1Tk90SEGzODSsgNCyRJe tN073BQGrSLriETSnn1IaW9 SaMerdsrLmMBu0EJCbQRkzg 1dpLHBkMDsko4YtTKlQSGIL YB3NUV7mdSX7CNaESNDBAZe aCUT1QFn5mYL3m1ocnPNjy7 z9WJqcAUS2kXtbkXHontysR GZzMjBccGFyXGxpNzIwXGxp rbpsIVn9tGIxlJraWWLwVxJ tJ4MzCTUeC6XmVOLavHz7GG Vkj0xmoSjaBJMfNIBomp01X P7jlUOgDBPqcejfKX2fmIF5 UWPRNFR9yTAntjMqRiIddQM arclbiQN1TAQqYEUij3YiCX AjemLrbWB1RQLhGC9wFOLoD WRyNFejBL3bVYN4bYWwqeOi JT6rCOW2c4KyWDQoKR4yEYB oZSBkaWZmZXJlbnRpYWwgZG gcS30ky8qpNLfqV1g0DCUrI AlyFpQeoTcpqhxgRMJ6CXXb INUyvkUbVEDeQSY7pA7zLSE gHDGol2CkZR8qSA1joHFxTD IcJ44KPvNGQJWMP47CNONDM KXYE3BXS5fEEUU0ZiF3eXN4 JrKsGdXzIntrSnE0PEC1Ht9 7LbC0TVD7nBO0CZ6iZLK1RY y3YIC2TQz1SJB3XiO7RDQlk QB6VB5gFFFlFSr8WADoL03X DqPEUMHMJ63CUKGINRHIE6G JXRCSMWbOU6RIPW7BRUPEXT ZLDM7ZAUyVXwVKNEcIJ2GVP E1GBFYNOPOYYH7AXhIcOEfZ P7OHL7xTQSRuBMOKUUDZWES rSuTZKR2dCRl9CFHfELV3rx onEMY1LWp2Mwe0MTXzm7dsy unsLAB3FHd2U9g7GZErfCEr eL3huRB7MiG9PAmtsCDoc0D AdDAqeDM9BvCuSHZszWJlr4 ABC82ce403HbP3CBFkzGRny 6WZPbo6i7ZjfFvfZeS3SQY5 ZI6rDDpON9LIX9dBAUBbYFJ OMJIIDYWaZP4QGCmYIQ3TUK YwVJJMKJQBYFXdWjCYOG9tO UrQXC3KKSQbYUOYCAIGHXTu SV7PPXTHKR0TCZAGQVTHG98 GBPFDFLOMF4OSD6qYRAISTX IEIsYUBnGEJC2IPMELOFVIG U3AZfA4 [facility] Work Phone: Pathology report gross observation Narrative s1jmzIQdKRIadIDiSNRdDJa ovnByTTUlvWAuM7GitrkmNO uxLX6gCG0zhDdsqQBvvMQeF AHeAbQyl9vyy328cQGho3yj JJLTaozaxUf1nFglI39rl0Y 5DmqwO4vqVSHqILvrJBBdRO pxwDQuUXx7ZJKqjOJikdZyE aJeFLUqlVMqvPT7OZRnYW8q kdfsNJubDAhfSNAxirJ7EAD jpWGhC4GuGJFkYD9apzynHK S2GDihPPNlYMP8IxLyFJUdf 5Zpugh1OeCoyBr3o0jqIIKw AXUzvRqym6pvYDD3RDIklHI yG1qawN3nILDaBW9vgxgpo4 rlTJprNVshCOOqwPL2ikE4D NIzcKMhL9EnaR0wQKQiFIFs fjYwpYqzuR4rBbEfRNnfSdR sSP5pLLRxZEMBNUMgbDQtLU UrvlSjd9MkGKuikekcRNYvo ZobTNYwDUBhULHMv0ishnxn F6llnN9wSYNHi8wnlxVYmZ0 fu8ciYAHmgEVapLXfwNbtCd pvqGL7IZllFrotbX7ntUDVB JCWCelATxwfwaYqBI6QQHLS IhLUZK84AiCzPEQ9VBabhMr xPriamdYkoNMeHvColN1jna CoG7ocZdcrlWT1FTnkNshic B9luLSJEDUOXuhRGzgeksLs VW6FKEZROP0KiNK1BAHndFQ 8YR29KQEsRUQrbGCxOOhqD3 19XHBsYWluXGZzMjAgIHRhb iBmcmFnbWVudChzKSBvZiB0 bTIbhZTzgWUrv4CmyR2kAZF pDIL0VVXvUNU9NBPcDuWvuE zcwz53JPU8s1qphUOdBPnlL mngwIUdjtK1QRgMCRGCNQhT FcCfNX4iAUaTS9EZVViLZot gTXH9X5cxnML2t9uqlTSam5 z4OSdcDGR1oPRrfuGcT4ggK ProsPYsp7wtlWOcLOmgPyrg lOHfjvS6YLaSPNNRAVjQPjV pKE5oZRjLT5NORhH0XjKvUV J8JnqknGyqIybsjqZmwHOzQ lZcqL4zpLlgsV1dRjAkDXNz XGUodHUfdMkiv0HncMq6iGB eOJyeSOVkF5Nqa0A5bXBvvz kuXHBhclxwYXJkXHBhciBCL fWWXGPadILoKELbpvInd4Fb YWxpbiwgZGVzaWduYXRlZCA hMpERVUH7kY9uXigbpLA4Cq zlBGLdy1DpS5D4KISlATwgi 9brEZDlSDrbq7NcJVoAGUKT VM8XHL9plWU6IIjXGNEMK5z JhJL6BZRgwOK5Z446MILeCV AjyOMbXXxxT158UFMmZNK6R XPrABteu4vdLWVaLNnwr1Bp ORyNBOIUJZ0HIT6toPT5MPh PEEAXPRmkRDL1JThbxMR2p7 ceoXFjc9m6SObsBGU8hJtqn RMxijmzfwYuLZY1GW5zXjWy K95gfvQyjbjhh7UsnSepu1X dXI7dUEB8fltkJtPxPfEsfJ QnJgOujQTfHfPjT75wuXOhy OAcyJsrSrgvnJV5ENjjFpnm gF6jhASUGBYNHgzCTpaqrtU kBR8ADGEPLoWHXH54ZiTbJM W1IDq8yQekTqegjkVojOIkI cIyoE5ixJ3cVEgdkdUnMYPe MmnbJvitrNV4IZgbPnaoqH0 zdCBIWVBFUkxJTksgbmFtZT 9XCVQKXP2KhBC8BFLknAN5O L57XHMaPIGxzGZsGOteI058 CRWhFJujRYMiPoOxDSLXm5N osUz6EGC9Yl2suRWtEYUqid BzCNSqh9BraBPrSQGqIcdvQ JKntTUxVYgeNQEcI1dcbYPv CQHpLQOTyo7chvBvuHRdbN8 ygWoafpWuFQZbw8CfUEEjUP U9VR8wyiEfrBKgSJITz5Kgt OYdhHMuZDOeYVKFfILrr24t qpJSkkKbwOTlPYRyq4WhLTo qDJUBKGF8QBtsF9ljPFEeoh UXJPIWTAuER0ByGGVYVKVCA GPdHmCVIS1bEdRhTDL4AT94 OuP0RZLceTS1BG6cSRS4RWh uHVnwLzJeBAP6YG5cJGVLIU FUIEoODH5ZQOVHTLDBXN3WM rMmC4zLAZIZJgYiBPZQCDMZ YUClQbBOER8uJ6wRVXLEWkO pKCOTYYEIDIAdVC7XEKPMQK HYMF9TRRDXO65FYRJQTSDCL 2LBI5aEKCHrs6PWobFiXcAw WT22FnY8ANNsAM5xAPiUKZW jxfLiQ4hnWZonfAV1OfUmJZ VdeMXao2BJjyVoVpJqQE80K fK7FMSvFN45QJoDHSPgcuRv N2tlURnvdOV0HiXbMBOjlNN YKRFSAEcLFSSIBk8LZNNSOX DTZB2LFpFoN0MQOQ5PWp3YQ VMDQJUGKS1RDCbANbZfX5DX EH9RDg1HWUWEBKOOZH9ZGiT wCXRGA3WCTvBEP7yeREZVRI SBWNZwXjSJNX1vAVLFLL5JF RQKEYCEW10QDUWHCQJWE2UV RH0= [facility] Work Phone: Pathology report microscopic observation Narrative Other stain q3ujsEYeMVLsiJNxDyTeICY dJIUrw2ezWCVdnXFeVrLaKi NcZnRuYmpcdWMxXGRlZmYwe 9ktz219dGBlw3uyMKZaDuG0 hRHlEDGhbQTvU688OKCkKPb wn4arv9TiOBYknWFzr7A3KO NFzyrzqAw1bUdgX98ll4L0X bxzR5zrKXAeLFUhI5PpTG8q IWNvPoj4OBJ2NVY1LQQxOBB yI4BtGY1gRXVfxCGtREa1o3 oehWxhWFVaDLJ7n0dmPYwrt hQkNB8fcq9qxGq5b8jowfFc ZDTvEBXhsXKTWWQnE4JgkSl cHb9ewYb1hRdoDvyoGSJ6Vf m3JN7jlg96cel2hNchSSBeq xhjKwD5CDhgWXSdbskmAGt1 VXsvNOAdqLJ7SIJopDYuT7P yXWEwXV9ucbz8GTU2CFyaQC EfGpT0INIvmKWlGCHmmWujZ Peeg589MIC3HrUrRZ2eV4Hy f8T8gH2efNJnTCUfsVEiSzG jOJBxpn5rgITvJAuvq8QjAJ Q5wnK0bZEafWPjDJVnTG54R ltgu5FxWohkMSQ0FLVcsxDx j2Efw7unTgUsisQjE8afV9Q yZHJoZWFkXHBnYnJkcmZvb3 Vxy6QxvAFprAl4c7qzJHUrZ JQaoPpss5nlJIG1FOTnQ7Z2 iDHst6woIOsiHQWwiKE4luE 2MLAbdZXhY5KdnB5xNUJiTG 9bieu5u4qlNSX3TTodDGSiL wC5opW1YONrdRRtORFngUyf ZByhy431GWE9OiQiYDJdu1G kK5XiiFlqL83ngYdhS50aUP YyyOypqD5gbNzaxZ7zSpBgD nMyNFxxbFxwbGFpblxmMVxm iaEjOWpievnrMDLjICohD0v vLeWmGXAoiHyuCRixw3WeBP ShPDBaXsRnLUgoai5lU31mg BOrDOalhMbiAYTce34dlNEg aHIxPt1ilILaSnxcFRH0 [facility] Work Phone: [facility] Work Phone: Troponin x 2 (Now and Repeat in 3 hours)on 06-24-2022 [employer] Troponin I 1 ng/L < -/+ 12 change [facility] Troponin I Delta Change No biomarker evidence of cardiac injury. [facility] Troponin I 31 ng/L NINF - 59 ng/L [facility] Troponin I 30 ng/L NINF - 59 ng/L [facility] Troponin I Interpretation Normal [facility] XR Chest 1 Viewon 06-24-2022 1. New mild pulmonary vascular congestion. 2. No focal airspace consolidation. Workstation ID: [id number] [employer] EXAMINATION: XR CHEST PA/AP 06/24/2022 9:59 am [...] No acute osseous or soft tissue abnormalities. [employer] Meaghan Canada, DO - 06/24/2022 EXAMINATION: XR [...] focal airspace consolidation. Workstation ID: [id number] [facility] Radiology Study [facility] (narrative) [facility] 1 ViewOrdered By: Virgil Canada on 06-24-2022 [facility] Work Phone: Basic metabolic 2000 panelOr dered By: Ronal Allan on 06-23-2022 Anion gap [Moles/Vol] 14 mmol/L 10 - 2 0 mmol/L [facility] Calcium [Mass/Vol] 8.0 mg/dL Low 8.4 - 10. 2 mg/dL [facility] Chloride [Moles/Vol] 105 mmol/L 98 - 10 8 mmol/L [facility] Creatinine [Mass/Vol] 2.86 mg/dL High 0.60 - 1.20 mg/dL [facility] GFR/1.73 sq M.predicted CKD-EPI (S/P/Bld) [Vol rate/Area] 18 Low - PINF [facility] Comment on above: Estimated GFR was ca lculated using the 2020 CKD-EPI creatinine equation. Glucose [Mass/Vol] 85 mg/dL 65 - 99 mg/dL [facility] HCO3 [Moles/Vol] 20 mmol/L Low 21 - 32 mmol/L [facility] Interpretation and review of laboratory results Abnormal [facility] Potassium [Moles/Vol] 5.3 mmol/L High 3.5 - 5.1 mmol/L [facility] Sodium [Moles/Vol] 134 mmol/L Low 135 - 145 mmol/L [facility] Urea nitrogen [Mass/Vol] 45 mg/dL High 8 - 25 mg/dL [facility] Urea nitrogen/Creatinine [Mass ratio] 15.7 mg/mg 10 - 20 [facility] has implemented the eGFR calculation approach that does not have a coefficient for race that conforms to the NKF-ASN Task Force Recommendations. [facility] CBC panel Auto (Bld)on 06-23 Erythrocyte distribution width (RBC) [Entitic vol] 15.8 % High 11.6 - 14.8 % [facility] Hematocrit (Bld) [Volume fraction] 28.1 % Low 36 - 46 % [facility] Hemoglobin (Bld) [Mass/Vol] 8.4 g/dL Low 12 - 16 g/dL [facility] Interpretation and review of laboratory results Abnormal [facility] MCH (RBC) [Entitic mass] 24.9 pg Low 26 - 34 pg [facility] MCHC (RBC) [Mass/Vol] 29.9 g/dL Low 31 - 37 g/dL [facility] MCV (RBC) [Entitic vol] 83.4 fL 80 - 100 fL [facility] Nucleated RBC (Bld) [#/Vol] 0.00 10*3/uL [facility] Nucleated RBC/100 WBC (Bld) [Ratio] 0.0 % [facility] Platelet mean volume (Bld) [Entitic vol] 9.9 fL 9.4 - 12.4 fL [facility] Platelets (Bld) [#/Vol] 303 10*3/uL [facility] RBC (Bld) [#/Vol] 3.37 10*6/uL Low [facility] ealth WBC (Bld) [#/Vol] 10.12 10*3/uL [facility] Glucose (Bld) [Mass/Vol]on 0 06-23-2022 Glucose [Mass/Vol] 102 mg/dL High 65 - 99 mg/[facility] Interpretation and review of laboratory results Abnormal [facility] Glucose [Mass/Vol] 97 mg/dL 65 - 99 mg/dL [facility] Interpretation and review of laboratory results Normal [facility] Glucose [Mass/Vol] 90 mg/dL 65 - 99 mg/dL [facility]al Interpretation and review of laboratory results Normal [facility] Glucose [Mass/Vol] 90 mg/dL 65 - 99 mg/dL [facility] Interpretation and review of laboratory results Normal [facility] SIGMOIDOSCOPYon 06-23-2022 [facility] TSH DL <= 0.005 mIU/L Qnon 0 06-23-2022 Interpretation and review of laboratory results Normal [facility] TSH Qn 0.68 m[IU]/L [facility] Gastrointestinal pathogens D NA and RNA panel CATRINA+non-probe (Stl)Ordered By: Andree Chapa on 06-22-2022 Adenovirus 40+41 DNA CATRINA+non-probe Ql (Stl) Not detected Not Detected [facility] Astrovirus subtypes 1-8 RNA CATRINA+non-probe Ql (Stl) Not detected Not Detected [facility] C. cayetanensis DNA CATRINA+non-probe Ql (Stl) Not detected Not Detected [facility] C. coli+jejuni+upsaliensis DNA CATRINA+non-probe Ql (Stl) Not detected Not Detected [facility] C. difficile toxin A+B tcdA+tcdB genes CATRINA+non-probe Ql (Stl) Not detected Not Detected [facility] Cryptosporidium sp DNA CATRINA+non-probe Ql (Stl) Not detected Not Detected [facility] E. coli enteroaggregative Clayton plasmid aggR+aatA genes CATRINA+non-probe Ql (Stl) Not detected Not Detected [facility] E. coli enteropathogenic eae gene CATRINA+non-probe Ql (Stl) Not detected Not Detected [facility] E. coli enterotoxigenic ltA+st1a+st1b genes CATRINA+non-probe Ql (Stl) Not detected Not Detected [facility] E. coli stx1+stx2 genes CATRINA+non-probe Ql (Stl) Not detected Not Detected [facility] E. histolytica DNA CATRINA+non-probe Ql (Stl) Not detected Not Detected [facility] G. lamblia DNA CATRINA+non-probe Ql (Stl) Not detected Not Detected [facility] Interpretation and review of laboratory results Normal [facility] Norovirus genogroup I+II RNA CATRINA+non-probe Ql (Stl) Not detected Not Detected [facility] P. shigelloides DNA CATRINA+non-probe Ql (Stl) Not detected Not Detected [facility] Rotavirus A RNA CATRINA+non-probe Ql (Stl) Not detected Not Detected [facility] S. enterica+bongori DNA CATRINA+non-probe Ql (Stl) Not detected Not Detected [facility] Sapovirus genogroups I+II+IV+V RNA CATRINA+non-probe Ql (Stl) Not detected Not Detected [facility] Shigella species+EIEC invasion plasmid antigen H ipaH gene CATRINA+non-probe Ql (Stl) Not detected Not Detected [facility] V. cholerae DNA CATRINA+non-probe Ql (Stl) Not detected [facility] V. cholerae+parahaemolytic us+vulnificus DNA CATRINA+non-probe Ql (Stl) Not detected Not Detected [facility] Y. enterocolitica DNA CATRINA+non-probe Ql (Stl) Not detected Not Detected [facility] Results of PCR testi ng [...] well as select bacterial infections. [facility] Glucose (Bld) [Mass/Vol]on 0 06-22-2022 Glucose [Mass/Vol] 98 mg/dL 65 - 99 mg/dL [facility] Interpretation and review of laboratory results Normal [facility] Glucose [Mass/Vol] 95 mg/dL 65 - 99 mg/dL [facility] Interpretation and review of laboratory results Normal [facility] Glucose [Mass/Vol] 121 mg/dL High 65 - 99 mg/dL [facility] Interpretation and review of laboratory results Abnormal [facility] Glucose [Mass/Vol] 99 mg/dL 65 - 99 mg/dL [facility] Interpretation and review of laboratory results Normal [facility] Basic metabolic 1998 panelon 06-21-2022 [facility] CBC Auto Differentialon 06-06 Basophils (Bld) [#/Vol] 0.06 10*3/uL [facility] Basophils/100 WBC (Bld) 0.3 % [facility] Eosin[facility] (Bld) [#/Vol] 0.03 10*3/uL [facility] Eosinophils/100 WBC (Bld) 0.1 % [facility] Erythrocyte distribution width (RBC) [Entitic vol] 15.8 % High 11.6 - 14.8 % [facility] Hematocrit (Bld) [Volume fraction] 36.1 % 36 - 46 % [facility] Hemoglobin (Bld) [Mass/Vol] 10.9 g/dL Low 12 - 16 g/dL [facility] Immature granulocytes (Bld) [#/Vol] 0.12 10*3/uL [facility] Immature granulocytes/100 WBC (Bld) 0.60 % [facility] Comment on above: The IG parameter is the percentage of metamyelocytes, myelocytes and promyelocytes. An immature granulocyte count (IG) of 1% or more suggests the possibility of infection, an IG count of 3% is very likely related to an infection. Interpretation and review of laboratory results Abnormal [facility] Lymphocytes (Bld) [#/Vol] 1.18 10*3/uL [facility] Lymphocytes/100 WBC (Bld) 5.7 % [facility] MCH (RBC) [Entitic mass] 24.7 pg Low 26 - 34 pg [facility] MCHC (RBC) [Mass/Vol] 30.2 g/dL Low 31 - 37 g/dL [facility] MCV (RBC) [Entitic vol] 81.9 fL 80 - 100 fL [facility] Monocytes (Bld) [#/Vol] 0.99 10*3/uL High [facility] Monocytes/100 WBC (Bld) 4.8 % [facility] Neutrophils (Bld) [#/Vol] 18.32 10*3/uL High [facility] Neutrophils/100 WBC (Bld) 88.5 % [facility] Nucleated RBC (Bld) [#/Vol] 0.00 10*3/uL [facility] Nucleated RBC/100 WBC (Bld) [Ratio] 0.0 % [facility] Platelet mean volume (Bld) [Entitic vol] 9.7 fL 9.4 - 12.4 fL [facility] Platelets (Bld) [#/Vol] 503 10*3/uL High [facility] RBC (Bld) [#/Vol] 4.41 10*6/uL [facility] ealth WBC (Bld) [#/Vol] 20.70 10*3/uL [facility] CT Abdomen Pelvis Without Co ntraston 06-21-2022 1. There is fluid throughout the colon which may be consistent with rapid transit/diarrhea. 2. Hepatic steatosis. 3. Extensive aortic calcification. [employer] Workstation ID: [id number] Portable [employer] EXAMINATION: CT ABDOMEN PELVIS WITHOUT CONTRAST HISTORY: [...] the lumbar spine. No suspicious osseous lesion. [employer] [facility] Vasiliy Lopez MD - 06/21/2022 EXAMINATION: CT [...] 2. Hepatic steatosis. 3. Extensive aortic calcification. [employer] Workstation ID: [id number] [facility] Radiology Study observation (narrative) [facility] Comprehensive metabolic 2000 panelon 06-21-2022 Albumin [Mass/Vol] 3.2 g/dL 3.2 - 5.2 g/dL [facility] ALP [Catalytic activity/Vol] 81 U/L 40 - 150 U/L [facility] ALT [Catalytic activity/Vol] 131 U/L High 14 - 65 U/L [facility] AST [Catalytic activity/Vol] 712 U/L High 0 - 45 U/L [facility] Bilirubin [Mass/Vol] 0.2 mg/dL 0 - 1.3 mg/dL [facility] Calcium [Mass/Vol] 9.4 mg/dL 8.4 - 10. 2 mg/dL [facility] Protein [Mass/Vol] 8.0 g/dL 6 - 8 g/dL [facility] Critical Careon 06-21-2022 Jaiden Bagley MD 06/21/2022 2:29 PM Critical Care Performed by: Jaiden Bagley MD Authorized by: Jaiden Bagley MD Total critical care time: 30 minutes [facility] Glucose (Bld) [Mass/Vol]on 0 06-21-2022 Glucose [Mass/Vol] 122 mg/dL High 65 - 99 mg/dL [facility] Interpretation and review of laboratory results Abnormal [facility] Glucose [Mass/Vol] 98 mg/dL 65 - 99 mg/dL [facility] Interpretation and review of laboratory results Normal [facility] INR Coag (PPP) [Relative pablo e]on 06-21-2022 Interpretation and review of laboratory results Normal [facility] PT Coag (PPP) [Time] 14.2 s [facility] During the induction phase of oral anticoagulation, the INR may not reflect the anticoagulation status of the patient. Therapeutic ranges for INR's are: Most clinical situations: INR 2.0-3.0 Mechanical Prosthetic Valve: INR 2.5-3.5 Critical: INR >5.0 [facility] Laboratory - Chemistry and C hemistry - challengeon 06-21-2022 Anion gap [Moles/Vol] 15 mmol/L 10 - 2 0 mmol/L [facility] Chloride [Moles/Vol] 97 mmol/L Low 98 - 10 8 mmol/L [facility] Creatinine [Mass/Vol] 2.61 mg/dL High 0.60 - 1.20 mg/dL [facility] GFR/1.73 sq M.predicted CKD-EPI (S/P/Bld) [Vol rate/Area] 20 Low - PINF [facility] Comment on above: Estimated GFR was ca lculated using the 2020 CKD-EPI creatinine equation. Glucose [Mass/Vol] 124 mg/dL High 65 - 99 mg/dL [facility] HCO3 [Moles/Vol] 23 mmol/L 21 - 32 mmol/L [facility] Potassium [Moles/Vol] 5.2 mmol/L High 3.5 - 5.1 mmol/L [facility] Sodium [Moles/Vol] 130 mmol/L Low 135 - 145 mmol/L [facility] Urea nitrogen [Mass/Vol] 48 mg/dL High 8 - 25 mg/dL [facility] Urea nitrogen/Creatinine [Mass ratio] 18.4 mg/mg 10 - 20 [facility] Lactate [Moles/Vol]on 2021 Interpretation and review of laboratory results Normal [facility] Lactic Acid, Plasmaon 2021 Lactate [Moles/Vol] 0.9 mmol/L 0.6 - 2 mmol/L [facility] Lipaseon 06-21-2022 Lipase [Catalytic activity/Vol] 133 U/L 73 - 393 U/L [facility] Lipase [Catalytic activity/V ol]on 06-21-2022 Interpretation and review of laboratory results Normal [facility] No Panel Informationon 06-21 [facility] Interpretation and review of laboratory results Abnormal [facility] has implemented the eGFR calculation approach that does not have a coefficient for race that conforms to the NKF-ASN Task Force Recommendations. [facility] PT/INRon 06-21-2022 INR Coag (PPP) [Relative time] 1.1 {INR} 0.8 - 1.1 [facility] Troponinon 06-21-2022 Troponin I 34 ng/L NINF - 59 ng/L [facility] Troponin I Interpretation Normal [facility] XR Chest 1 Viewon 06-21-2022 No evident acute process in the chest. [employer] Workstation ID: [id number] [employer] EXAMINATION: XR CHEST PA/AP HISTORY: Weakness. COMPARISON: Chest x-ray 03/31/2022. TECHNIQUE: A portable frontal upright view of the chest. FINDINGS: Calcified granulomas at the right upper lobe. No airspace opacity. No pneumothorax or pleural effusion. Cardiomediastinal silhouette and pulmonary vasculature are within normal limits. Surgical clips project at the left neck. Surgical anchor at the right humeral head. [facility] Vasiliy Lopez MD - 06/21/2022 EXAMINATION: XR [...] No evident acute process in the chest. [employer] Workstation ID: [id number] [facility] Radiology Study observation (narrative) XR Chest 1 ViewOrdered By: Brandie Lopez on 06-21-2022 [facility] Work Phone: Basic metabolic 2000 panelon 04-04-2022 Anion gap [Moles/Vol] 13 mmol/L 10 - 2 0 mmol/L [facility] Calcium [Mass/Vol] 9.1 mg/dL 8.4 - 10. 2 mg/dL [facility] Chloride [Moles/Vol] 99 mmol/L 98 - 10 8 mmol/L [facility] Creatinine [Mass/Vol] 1.23 mg/dL High 0.60 - 1.20 mg/dL [facility] GFR/1.73 sq M.predicted CKD-EPI (S/P/Bld) [Vol rate/Area] 47 Low - PINF [facility] Glucose [Mass/Vol] 101 mg/dL High 65 - 99 mg/dL [facility] HCO3 [Moles/Vol] 28 mmol/L 21 - 32 mmol/L [facility] Interpretation and review of laboratory results Abnormal [facility] Potassium [Moles/Vol] 4.3 mmol/L 3.5 - 5.1 mmol/L [facility] Sodium [Moles/Vol] 136 mmol/L 135 - 145 mmol/L [facility] Urea nitrogen [Mass/Vol] 10 mg/dL 8 - 25 mg/dL [facility] Urea nitrogen/Creatinine [Mass ratio] 8.1 mg/mg Low 10 - 20 [facility] The eGFR should be u sed for monitoring renal function only and not for medication dosing. [facility] CBC panel Auto (Bld)on 04-04 Erythrocyte distribution width (RBC) [Entitic vol] 16.1 % High 11.6 - 14.8 % [facility] Hematocrit (Bld) [Volume fraction] 32.8 % Low 36 - 46 % [facility] Hemoglobin (Bld) [Mass/Vol] 9.9 g/dL Low 12 - 16 g/dL [facility] Interpretation and review of laboratory results Abnormal [facility] MCH (RBC) [Entitic mass] 24.6 pg Low 26 - 34 pg [facility] MCHC (RBC) [Mass/Vol] 30.2 g/dL Low 31 - 37 g/dL [facility] MCV (RBC) [Entitic vol] 81.6 fL 80 - 100 fL [facility] Nucleated RBC (Bld) [#/Vol] 0.00 10*3/uL [facility] Nucleated RBC/100 WBC (Bld) [Ratio] 0.0 % [facility] Platelet mean volume (Bld) [Entitic vol] 10.0 fL 9.4 - 12.4 fL [facility] Platelets (Bld) [#/Vol] 267 10*3/uL [facility] RBC (Bld) [#/Vol] 4.02 10*6/uL [facility] WBC (Bld) [#/Vol] 6.14 10*3/uL [facility] Glucose (Bld) [Mass/Vol]on 0 04-04-2022 Glucose [Mass/Vol] 106 mg/dL High 65 - 99 mg/dL [facility] Interpretation and review of laboratory results Abnormal [facility] Magnesium Levelon 04-04-2022 Magnesium [Mass/Vol] 1.9 mg/dL 1.6 - 2 .4 mg/dL [facility] Magnesium [Mass/Vol]on 04-04 Interpretation and review of laboratory results Normal [facility] Phosphate [Mass/Vol]on 04-04 Interpretation and review of laboratory results Abnormal [facility] Phosphoruson 04-04-2022 Phosphate [Mass/Vol] 4.4 mg/dL High 2.8 - 4 .1 mg/dL [facility] Basic metabolic 2000 panelon 04-03-2022 Anion gap [Moles/Vol] 15 mmol/L 10 - 2 0 mmol/L [facility] Calcium [Mass/Vol] 9.1 mg/dL 8.4 - 10. 2 mg/dL [facility] Chloride [Moles/Vol] 101 mmol/L 98 - 10 8 mmol/L [facility] Creatinine [Mass/Vol] 1.14 mg/dL 0.60 - 1.20 mg/dL [facility] GFR/1.73 sq M.predicted CKD-EPI (S/P/Bld) [Vol rate/Area] 51 Low - PINF [facility] Glucose [Mass/Vol] 101 mg/dL High 65 - 99 mg/dL [facility] HCO3 [Moles/Vol] 26 mmol/L 21 - 32 mmol/L [facility] Interpretation and review of laboratory results Abnormal [facility] Potassium [Moles/Vol] 4.7 mmol/L 3.5 - 5.1 mmol/L [facility] Sodium [Moles/Vol] 137 mmol/L 135 - 145 mmol/L [facility] Urea nitrogen [Mass/Vol] 10 mg/dL 8 - 25 mg/dL [facility] Urea nitrogen/Creatinine [Mass ratio] 8.8 mg/mg Low 10 - 20 [facility] The eGFR should be u sed for monitoring renal function only and not for medication dosing. [facility] CBC panel Auto (Bld)on 04-03 Erythrocyte distribution width (RBC) [Entitic vol] 16.2 % High 11.6 - 14.8 % [facility] Hematocrit (Bld) [Volume fraction] 30.9 % Low 36 - 46 % [facility] Hemoglobin (Bld) [Mass/Vol] 9.3 g/dL Low 12 - 16 g/dL [facility] Interpretation and review of laboratory results Abnormal [facility] MCH (RBC) [Entitic mass] 24.4 pg Low 26 - 34 pg [facility] MCHC (RBC) [Mass/Vol] 30.1 g/dL Low 31 - 37 g/dL [facility] MCV (RBC) [Entitic vol] 81.1 fL 80 - 100 fL [facility] Nucleated RBC (Bld) [#/Vol] 0.00 10*3/uL [facility] Nucleated RBC/100 WBC (Bld) [Ratio] 0.0 % [facility] Platelet mean volume (Bld) [Entitic vol] 10.3 fL 9.4 - 12.4 fL [facility] Platelets (Bld) [#/Vol] 286 10*3/uL [facility] RBC (Bld) [#/Vol] 3.81 10*6/uL Low [facility] WBC (Bld) [#/Vol] 7.32 10*3/uL [facility] Glucose (Bld) [Mass/Vol]on 0 04-03-2022 Glucose [Mass/Vol] 118 mg/dL High 65 - 99 mg/dL [facility] Interpretation and review of laboratory results Abnormal [facility] Glucose [Mass/Vol] 141 mg/dL High 65 - 99 mg/[facility] and review of laboratory results Abnormal [facility] Glucose [Mass/Vol] 98 mg/dL 65 - 99 mg/dL [facility] Interpretation and review of laboratory results Normal [facility] Glucose [Mass/Vol] 109 mg/dL High 65 - 99 mg/dL [facility] Interpretation and review of laboratory results Abnormal [facility] Magnesium Levelon 04-03-2022 Magnesium [Mass/Vol] 1.9 mg/dL 1.6 - 2 .4 mg/dL [facility] Magnesium [Mass/Vol]on 04-03 Interpretation and review of laboratory results Normal [facility] Phosphate [Mass/Vol]on 04-03 Interpretation and review of laboratory results Normal [facility] Phosphoruson 04-03-2022 Phosphate [Mass/Vol] 4.1 mg/dL 2.8 - 4 .1 mg/dL [facility] Basic metabolic 2000 panelon 04-02-2022 Anion gap [Moles/Vol] 16 mmol/L 10 - 2 0 mmol/L [facility] Calcium [Mass/Vol] 8.6 mg/dL 8.4 - 10. 2 mg/dL [facility] Chloride [Moles/Vol] 101 mmol/L 98 - 10 8 mmol/L [facility] Creatinine [Mass/Vol] 1.12 mg/dL 0.60 - 1.20 mg/dL [facility] GFR/1.73 sq M.predicted CKD-EPI (S/P/Bld) [Vol rate/Area] 52 Low - PINF [facility] Glucose [Mass/Vol] 95 mg/dL 65 - 99 mg/dL [facility] HCO3 [Moles/Vol] 24 mmol/L 21 - 32 mmol/L [facility] Interpretation and review of laboratory results Abnormal [facility] Potassium [Moles/Vol] 5.0 mmol/L 3.5 - 5.1 mmol/L [facility] Sodium [Moles/Vol] 136 mmol/L 135 - 145 mmol/L [facility] Urea nitrogen [Mass/Vol] 11 mg/dL 8 - 25 mg/dL [facility] Urea nitrogen/Creatinine [Mass ratio] 9.8 mg/mg Low 10 - 20 [facility] The eGFR should be u sed for monitoring renal function only and not for medication dosing. [facility] CBC panel Auto (Bld)on 04-02 Erythrocyte distribution width (RBC) [Entitic vol] 16.4 % High 11.6 - 14.8 % [facility] Hematocrit (Bld) [Volume fraction] 31.9 % Low 36 - 46 % [facility] Hemoglobin (Bld) [Mass/Vol] 9.4 g/dL Low 12 - 16 g/dL [facility] Interpretation and review of laboratory results Abnormal [facility] MCH (RBC) [Entitic mass] 24.4 pg Low 26 - 34 pg [facility] MCHC (RBC) [Mass/Vol] 29.5 g/dL Low 31 - 37 g/[facility]CV (RBC) [Entitic vol] 82.9 fL 80 - 100 fL [facility] Nucleated RBC (Bld) [#/Vol] 0.00 10*3/uL [facility] Nucleated RBC/100 WBC (Bld) [Ratio] 0.0 % [facility] Platelet mean volume (Bld) [Entitic vol] 9.9 fL 9.4 - 12.4 fL [facility] Platelets (Bld) [#/Vol] 280 10*3/uL [facility] RBC (Bld) [#/Vol] 3.85 10*6/uL Low [facility] WBC (Bld) [#/Vol] 7.21 10*3/uL [facility] ECG 12 Leadon 04-02-2022 Atrial Rate 82 BPM [facility] P Tollhouse 70 degrees [facility] P-R Interval 152 ms [facility] Q-T Interval 368 ms [facility] QRS Duration 94 ms [facility] QTC Calculation (Bezet) 429 ms [facility] R [place] 45 degrees [facility] T Tollhouse 16 degrees [facility] Ventricular Rate 82 BPM [facility] Normal sinus rhythm Nonspecific T wave abnormality Abnormal ECG Confirmed by RIVER ZAVALA MD ([id number]) on 04/02/2022 8:18:58 AM MUSE [facility] Atrial Rate 75 BPM [facility] P [place]ollhouse 56 degrees [facility] P-R Interval 144 ms [facility] Q-T Interval 366 ms [facility] QRS Duration 98 ms [facility] QTC Calculation (Bezet) 408 ms [facility] R [place] 31 degrees [facility] T [place]ollhouse 1 degrees [facility] Ventricular Rate 75 BPM [facility] Normal sinus rhythm Nonspecific T wave abnormality Abnormal ECG Confirmed by RIVER ZAVALA MD ([id number]) on 04/02/2022 8:13:22 AM [facility] Glucose (Bld) [Mass/Vol]on 0 04-02-2022 Glucose [Mass/Vol] 101 mg/dL High 65 - 99 mg/dL [facility] Interpretation and review of laboratory results Abnormal [facility] Glucose [Mass/Vol] 107 mg/dL High 65 - 99 mg/dL [facility] Interpretation and review of laboratory results Abnormal [facility] Glucose [Mass/Vol] 153 mg/dL High 65 - 99 mg/dL [facility] Interpretation and review of laboratory results Abnormal [facility] Glucose [Mass/Vol] 95 mg/dL 65 - 99 mg/dL [facility] Interpretation and review of laboratory results Normal [facility] Magnesium Levelon 04-02-2022 Magnesium [Mass/Vol] 1.9 mg/dL 1.6 - 2 .4 mg/dL [facility] Magnesium [Mass/Vol]on 04-02 Interpretation and review of laboratory results Normal [facility] Phosphate [Mass/Vol]on 04-02 Interpretation and review of laboratory results Normal [facility] Phosphoruson 04-02-2022 Phosphate [Mass/Vol] 3.1 mg/dL 2.8 - 4 .1 mg/dL [facility] UrinalysisOrdered By: Surendra Patel on 04-02-2022 Bacteria Auto Ql (U) Rare Abnormal None Se en /hpf [facility] Bilirubin Ql (U) Negative Negative [facility] th Clarity Refractometry automated (U) Clear Clear [facility] Color (U) Yellow Colorless, Yellow [facility] Glucose Auto test strip (U) [Mass/Vol] Negative Negative mg/dL [facility] Hemoglobin Auto test strip Ql (U) Moderate Abnormal Negative [facility] Interpretation and review of laboratory results Abnormal [facility] Ketones (U) [Mass/Vol] Negative Negat radha mg/dL [facility] Leukocyte esterase Auto test strip Ql (U) Trace Abnormal Negative [facility] Mucus Auto (Urine sed) [#/Area] Rare None Seen, Rare /lpf [facility] Nitrite Auto test strip Ql (U) Negative Negative [facility] pH (U) 6.0 [pH] 5 - 7 [facility] Protein (U) [Mass/Vol] 100 mg/dL Abnormal Negat radha mg/dL [facility] RBC Auto (Urine sed) [#/Area] 64 High [facility] Specific gravity (U) [Rel density] 1.010 1.005 - 1.025 [facility] Urobilinogen (U) [Mass/Vol] mg/dL NINF - 2.0 mg/dL [facility] WBC Auto (Urine sed) [#/Area] 4 [facility] Microscopic examinat ion is performed on all urinalysis samples and only positive findings are reported. The test for blood on the chemical analytic portion of urinalysis may also be positive due to hemoglobinuria and myoglobinuria and if red blood cells are present they are quantified by microscopic examination. [facility] Basic metabolic 2000 panelon 04-01-2022 Anion gap [Moles/Vol] 13 mmol/L 10 - 2 0 mmol/L [facility] Calcium [Mass/Vol] 8.5 mg/dL 8.4 - 10. 2 mg/dL [facility] Chloride [Moles/Vol] 102 mmol/L 98 - 10 8 mmol/L [facility] Creatinine [Mass/Vol] 1.48 mg/dL High 0.60 - 1.20 mg/dL [facility] GFR/1.73 sq M.predicted CKD-EPI (S/P/Bld) [Vol rate/Area] 37 Low - PINF [facility] Glucose [Mass/Vol] 92 mg/dL 65 - 99 mg/dL [facility] HCO3 [Moles/Vol] 24 mmol/L 21 - 32 mmol/L [facility] Interpretation and review of laboratory results Abnormal [facility] Potassium [Moles/Vol] 4.8 mmol/L 3.5 - 5.1 mmol/L [facility] Sodium [Moles/Vol] 134 mmol/L Low 135 - 145 mmol/L [facility] Urea nitrogen [Mass/Vol] 15 mg/dL 8 - 25 mg/dL [facility] Urea nitrogen/Creatinine [Mass ratio] 10.1 mg/mg 10 - 20 [facility] The eGFR should be u sed for monitoring renal function only and not for medication dosing. [facility] CBC panel Auto (Bld)on 04-01 Erythrocyte distribution width (RBC) [Entitic vol] 16.3 % High 11.6 - 14.8 % [facility] Hematocrit (Bld) [Volume fraction] 31.8 % Low 36 - 46 % [facility] Hemoglobin (Bld) [Mass/Vol] 9.4 g/dL Low 12 - 16 g/dL [facility] Interpretation and review of laboratory results Abnormal [facility] MCH (RBC) [Entitic mass] 24.7 pg Low 26 - 34 pg [facility] MCHC (RBC) [Mass/Vol] 29.6 g/dL Low 31 - 37 g/dL [facility] MCV (RBC) [Entitic vol] 83.5 fL 80 - 100 fL [facility] Nucleated RBC (Bld) [#/Vol] 0.00 10*3/uL [facility] Nucleated RBC/100 WBC (Bld) [Ratio] 0.0 % [facility] Platelet mean volume (Bld) [Entitic vol] 9.8 fL 9.4 - 12.4 fL [facility] Platelets (Bld) [#/Vol] 269 10*3/uL [facility] RBC (Bld) [#/Vol] 3.81 10*6/uL Low [facility] WBC (Bld) [#/Vol] 7.70 10*3/uL [facility] Glucose (Bld) [Mass/Vol]on 0 04-01-2022 Glucose [Mass/Vol] 133 mg/dL High 65 - 99 mg/dL [facility] Interpretation and review of laboratory results Abnormal [facility] Glucose [Mass/Vol] 103 mg/dL High 65 - 99 mg/dL [facility] Interpretation and review of laboratory results Abnormal [facility] Glucose [Mass/Vol] 97 mg/dL 65 - 99 mg/dL [facility] Interpretation and review of laboratory results Normal [facility] Glucose [Mass/Vol] 95 mg/dL 65 - 99 mg/dL [facility] Interpretation and review of laboratory results Normal [facility] Magnesium Levelon 04-01-2022 Magnesium [Mass/Vol] 1.9 mg/dL 1.6 - 2 .4 mg/dL [facility] Magnesium [Mass/Vol]on 04-01 Interpretation and review of laboratory results Normal [facility] Phosphate [Mass/Vol]on 04-01 Interpretation and review of laboratory results Normal [facility] Phosphoruson 04-01-2022 Phosphate [Mass/Vol] 3.5 mg/dL 2.8 - 4 .1 mg/dL [facility] Basic metabolic 2000 panelon 03-31-2022 Anion gap [Moles/Vol] 17 mmol/L 10 - 2 0 mmol/L [facility] Calcium [Mass/Vol] 8.5 mg/dL 8.4 - 10. 2 mg/dL [facility] Chloride [Moles/Vol] 98 mmol/L 98 - 10 8 mmol/L [facility] Creatinine [Mass/Vol] 1.97 mg/dL High 0.60 - 1.20 mg/dL [facility] GFR/1.73 sq M.predicted CKD-EPI (S/P/Bld) [Vol rate/Area] 26 Low - PINF [facility] Glucose [Mass/Vol] 97 mg/dL 65 - 99 mg/dL [facility] HCO3 [Moles/Vol] 24 mmol/L 21 - 32 mmol/L [facility] Interpretation and review of laboratory results Abnormal [facility] Potassium [Moles/Vol] 4.8 mmol/L 3.5 - 5.1 mmol/L [facility] Sodium [Moles/Vol] 134 mmol/L Low 135 - 145 mmol/L [facility] Urea nitrogen [Mass/Vol] 22 mg/dL 8 - 25 mg/dL [facility] Urea nitrogen/Creatinine [Mass ratio] 11.2 mg/mg 10 - 20 [facility] The eGFR should be u sed for monitoring renal function only and not for medication dosing. [facility] CBC panel Auto (Bld)on 03-31 Erythrocyte distribution width (RBC) [Entitic vol] 16.5 % High 11.6 - 14.8 % [facility] Hematocrit (Bld) [Volume fraction] 34.1 % Low 36 - 46 % [facility] Hemoglobin (Bld) [Mass/Vol] 10.0 g/dL Low 12 - 16 g/dL [facility] Interpretation and review of laboratory results Abnormal [facility] MCH (RBC) [Entitic mass] 24.5 pg Low 26 - 34 pg [facility] MCHC (RBC) [Mass/Vol] 29.3 g/dL Low 31 - 37 g/dL [facility] MCV (RBC) [Entitic vol] 83.6 fL 80 - 100 fL [facility] Nucleated RBC (Bld) [#/Vol] 0.00 10*3/uL [facility] Nucleated RBC/100 WBC (Bld) [Ratio] 0.0 % [facility] Platelet mean volume (Bld) [Entitic vol] 10.0 fL 9.4 - 12.4 fL [facility] Platelets (Bld) [#/Vol] 413 10*3/uL High [facility] RBC (Bld) [#/Vol] 4.08 10*6/uL [facility] ealth WBC (Bld) [#/Vol] 12.23 10*3/uL [facility] EKGon 03-31-2022 Ordered by an unspecified provider. [facility] Glucose (Bld) [Mass/Vol]on 0 03-31-2022 Glucose [Mass/Vol] 119 mg/dL High 65 - 99 mg/dL [facility] Interpretation and review of laboratory results Abnormal [facility] Glucose [Mass/Vol] 113 mg/dL High 65 - 99 mg/dL [facility] Interpretation and review of laboratory results Abnormal [facility] Glucose [Mass/Vol] 121 mg/dL High 65 - 99 mg/dL [facility] Interpretation and review of laboratory results Abnormal [facility] Glucose [Mass/Vol] 114 mg/dL High 65 - 99 mg/dL [facility] Interpretation and review of laboratory results Abnormal [facility] Magnesium Levelon 03-31-2022 Magnesium [Mass/Vol] 1.9 mg/dL 1.6 - 2 .4 mg/dL [facility] Magnesium [Mass/Vol]on 03-31 Interpretation and review of laboratory results Normal [facility] Phosphate [Mass/Vol]on 03-31 Interpretation and review of laboratory results Abnormal [facility] Phosphoruson 05-26-2022 Phosphate [Mass/Vol] 5.2 mg/dL High 2.8 - 4 .1 mg/dL [facility] Troponin OnceOrdered By: Ana Win on 03-31-2022 Delta Difference Troponin T 1 ng/L < = -/+ 7 change [facility] Interp Troponin T Delta Change Probable non-acute cardiac injury or late presentation of acute injury. [facility] Interpretation and review of laboratory results Abnormal [facility] Troponin T 33 ng/L Critically high NINF - 14 ng/L [facility] XR Chest AP/PA and LATon 1. No active pulmonary disease. Workstation ID: [id number] Portable Scores EXAMINATION: TWO XRAY VIEWS OF THE CHEST [...] are noted. There are scattered calcified granulomas. [facility] Magdy Mcintosh MD - 03/31/2022 EXAMINATION: TWO XRAY VIEWS [...] active pulmonary disease. Workstation ID: [id number] [facility] Radiology Study observation (narrative) [facility] X[facility] AP/PA and LATOrdere d By: Magdy Mcintosh on 03-31-2022 [facility] Work Phone: APTTon 03-30-2022 aPTT Coag (Bld) [Time] 33 s [facility] Blood type and Indirect anti body screen panel (Bld)on 03-30-2022 ABO and Rh group Nom (Bld) Blood group A Rh(D) positive [facility] Blood group antibody screen Ql Negative [facility] Specimen Expires 04/02/2022 23:59 EST [facility] Glucose (Bld) [Mass/Vol]on 0 03-30-2022 Glucose [Mass/Vol] 105 mg/dL High 65 - 99 mg/dL [facility] Interpretation and review of laboratory results Abnormal [facility] Glucose [Mass/Vol] 131 mg/dL High 65 - 99 mg/dL [facility] Interpretation and review of laboratory results Abnormal [facility] Glucose [Mass/Vol] 145 mg/dL High 65 - 99 mg/dL [facility] Interpretation and review of laboratory results Abnormal [facility] Troponin OnceOrdered By: Hong Davison on 03-30-2022 Interpretation and review of laboratory results Abnormal [facility] Troponin T 32 ng/L Critically high NINF - 14 ng/L [facility] Troponin T Interpretation Possible acute cardiac injury. [facility] aPTT Coag (Bld) [Time]on Interpretation and review of laboratory results Normal [facility] Therapeutic range fo r APTT's is 68 - 104 seconds [facility] No Panel Informationon 12-30 6 min walk [...] O2 2 lpm [facility] PFT LAB [facility] HGB + HCTon 07-05-2021 Hematocrit (Bld) [Volume fraction] 35.9 % Low 36.0 - 46.0 [facility] Comment on above: Performed By: #### H H #### [address] [address] Hemoglobin (Bld) [Mass/Vol] 11.3 g/dL Low 12.0 - 16.0 [facility] Comment on above: Performed By: #### H H #### [address] [address] RENAL FUNCTION PANELon 07-05 Albumin [Mass/Vol] 4.0 g/dL Normal 3.4 - 5.0 [facility] Comment on above: Performed By: #### R ENAL #### [address] [address] Anion gap [Moles/Vol] 11 mmol/L Normal 10 - 20 [facility] Comment on above: Performed By: #### R ENAL #### [address] [address] Calcium [Mass/Vol] 8.8 mg/dL Normal 8.6 - 10.3 [facility] Comment on above: Performed By: #### R ENAL #### [address] [address] Chloride [Moles/Vol] 103 mmol/L Normal 98 - 107 [facility] Comment on above: Performed By: #### R ENAL #### [address] [address] Creatinine [Mass/Vol] 1.28 mg/dL High 0.50 - 1.05 [facility] Comment on above: Performed By: #### R ENAL #### [address] [address] GFR- AM. 51 mL/min/1.73m2 Abnormal >60 [facility] Comment on above: Result Comment: CALC ULATIONS OF ESTIMATED GFR ARE PERFORMED USING THE MDRD STUDY EQUATION FOR THE IDMS-TRACEABLE CREATININE METHODS. CLIN CHEM 2007;[id number] Performed By: #### R ENAL #### [address] [address] GFR-NON AM. 42 mL/min/1.73m2 Abnormal >60 [facility] Comment on above: Performed By: #### R ENAL #### [address] [address] Glucose [Mass/Vol] 97 mg/dL Normal 74 - 99 [facility] Comment on above: Performed By: #### R ENAL #### [address] [address] HCO3 (Bld) [Moles/Vol] 27 mmol/L Normal 21 - 32 [facility] Comment on above: Performed By: #### R ENAL #### [address] [address] Phosphate [Mass/Vol] 4.0 mg/dL Normal 2.5 - 4.9 [facility] Comment on above: Result Comment: The performance characteristics of phosphorus testing in heparinized plasma have been validated by the individual laboratory site where testing is performed. Testing on heparinized plasma is not approved by the FDA; however, such approval is not necessary. Performed By: #### R ENAL #### [address] [address] Potassium [Moles/Vol] 4.8 mmol/L Normal 3.5 - 5.3 [facility] Comment on above: Performed By: #### R ENAL #### [address] [address] Sodium [Moles/Vol] 136 mmol/L Normal 136 - 145 [facility] Comment on above: Performed By: #### R ENAL #### [address] [address] Urea nitrogen [Mass/Vol] 32 mg/dL High 6 - 23 [facility] Comment on above: Performed By: #### R ENAL #### [address] [address] TOTAL PROTEIN, URINE SPOTon 07-05-2021 CREATININE,URINE 37.0 mg/dL Normal 20.0 - 320.0 [facility] Comment on above: Performed By: #### T PS2 #### [address] [address] T. PROTEIN/CREAT RATIO 0.32 mg/mg Creat High 0.00 - 0.17 [facility] Comment on above: Performed By: #### T PS2 #### [address] [address] TOTAL PROT,URINE SPOT 12 mg/dL Normal 5 - 24 [facility] Comment on above: Performed By: #### T PS2 #### [address] [address] KAPPA/LAMBDA FREE LIGHT Aaron VILLA 06-20-2021 FREE KAPPA LIGHT CHAINS,S 5.60 mg/dL High 0.33 - 1.94 [facility] Comment on above: Performed By: #### K STEWART #### [facility] [address] [place] [address] FREE KAPPA/LAMBDA RATIO,S 1.19 Normal 0.26 - 1.65 [facility] Comment on above: Result Comment: Unde tected [...] laboratory. Performed By: #### K STEWART #### [facility] [address] [place] [address] FREE LAMBDA LIGHT CHAIN,S 4.72 mg/dL High 0.57 - 2.63 [facility] Comment on above: Performed By: #### K STEWART #### [facility] [address] [place] [address] CBCon 06-18-2021 Erythrocyte distribution width (RBC) [Ratio] 18.8 % High 11.5 - 14.5 [facility] Comment on above: Performed By: #### C BC #### [address] [address] Hematocrit (Bld) [Volume fraction] 35.3 % Low 36.0 - 46.0 [facility] Comment on above: Performed By: #### C BC #### [address] [address] Hemoglobin (Bld) [Mass/Vol] 10.9 g/dL Low 12.0 - 16.0 [facility] Comment on above: Performed By: #### C BC #### [address] [address] MCHC (RBC) [Mass/Vol] 31.0 g/dL Low 32.0 - 36.0 [facility] Comment on above: Performed By: #### C BC #### [address] [address] MCV (RBC) [Entitic vol] 78 fL Low 80 - 100 [facility] Comment on above: Performed By: #### C BC #### [address] [address] Platelets (Bld) [#/Vol] 291 10*3/uL Normal 150 - 450 [facility] Comment on above: Performed By: #### C BC #### [address] [address] RBC 4.49 x10E12/L Normal 4.00 - 5.20 [facility] Comment on above: Performed By: #### C BC #### [address] [address] WBC (Bld) [#/Vol] 7.1 10*3/uL Normal 4.4 - 11.3 [facility] Comment on above: Performed By: #### C BC #### [address] [address] COMPREHENSIVE PANELon 2020 Albumin [Mass/Vol] 3.9 g/dL Normal 3.4 - 5.0 [facility] Comment on above: Performed By: #### C MP #### [address] [address] ALP [Catalytic activity/Vol] 62 U/L Normal 33 - 136 [facility] Comment on above: Performed By: #### C MP #### [address] [address] ALT [Catalytic activity/Vol] 13 U/L Normal 7 - 45 [facility] Comment on above: Result Comment: Michelle ents treated with Sulfasalazine may generate falsely decreased results for ALT. Performed By: #### C MP #### [place] [id number] Anion gap [Moles/Vol] 12 mmol/L Normal 10 - 20 [facility] Comment on above: Performed By: #### C MP #### [address] [address] AST [Catalytic activity/Vol] 14 U/L Normal 9 - 39 [facility] Comment on above: Performed By: #### C MP #### [address] [address] Bilirubin [Mass/Vol] 0.3 mg/dL Normal 0.0 - 1.2 [facility] Comment on above: Performed By: #### C MP #### [address] [address] Calcium [Mass/Vol] 9.0 mg/dL Normal 8.6 - 10.3 [facility] Comment on above: Performed By: #### C MP #### [address] [address] Chloride [Moles/Vol] 101 mmol/L Normal 98 - 107 [facility] Comment on above: Performed By: #### C MP #### [address] [address] Creatinine [Mass/Vol] 1.68 mg/dL High 0.50 - 1.05 [facility] Comment on above: Performed By: #### C MP #### [address] [address] GFR- AM. 38 mL/min/1.73m2 Abnormal >60 [facility] Comment on above: Result Comment: CALC ULATIONS OF ESTIMATED GFR ARE PERFORMED USING THE MDRD STUDY EQUATION FOR THE IDMS-TRACEABLE CREATININE METHODS. CLIN CHEM 2007;53:766-72 Performed By: #### C MP #### [address] [address] GFR-NON AM. 31 mL/min/1.73m2 Abnormal >60 [facility] Comment on above: Performed By: #### C MP #### [address] [address] Glucose [Mass/Vol] 89 mg/dL Normal 74 - 99 [facility] Comment on above: Performed By: #### C MP #### [address] [address] HCO3 (Bld) [Moles/Vol] 24 mmol/L Normal 21 - 32 [facility] Comment on above: Performed By: #### C MP #### [address] [address] Potassium [Moles/Vol] 5.0 mmol/L Normal 3.5 - 5.3 [facility] Comment on above: Performed By: #### C MP #### [address] [address] Protein [Mass/Vol] 7.1 g/dL Normal 6.4 - 8.2 [facility] Comment on above: Performed By: #### C MP #### [address] [address] Sodium [Moles/Vol] 132 mmol/L Low 136 - 145 [facility] Comment on above: Performed By: #### C MP #### [address] [address] Urea nitrogen [Mass/Vol] 45 mg/dL High 6 - 23 [facility] Comment on above: Performed By: #### C MP #### [address] [address] FOLATE, SERUMon 06-18-2021 Folate [Mass/Vol] 11.9 ng/mL Normal >5.0 [facility] Comment on above: Result Comment: Low <3.4 Borderline 3.4-5.0 Normal >5.0 . Patients receiving more than 5 mg/day of biotin may have interference in test results. A sample should be taken no sooner than eight hours after previous dose. Contact the testing laboratory for additional information. Performed By: #### F OLA2 #### [address] [address] TSHon 06-18-2021 TSH Qn 1.76 m[IU]/L Normal 0.44 - 3.98 [facility] Comment on above: Result Comment: TSH testing is performed using different testing methodology at [facility] than at other [facility]. Direct result comparisons should only be made within the same method. Performed By: #### T SH2 #### [address] [address] VITAMIN B12on 06-18-2021 Cobalamin (Vitamin B12) [Mass/Vol] 467 pg/mL Normal 211 - 911 [facility] Comment on above: Performed By: #### V TB12 #### [address] [address] PT Progress Noteon PT Progress Note Therapy [...] secs on/20 off with lbs as tolerated. STEAMFITTER SUPERVISOR can also manual distraction and soft tissue [...] with pain, flexion chin to chest MMT: [facility] PALPATION: defer (more content not included)... Normal [facility] Basic metabolic 2000 panelOr dered By: Georgie Vázquez on 04-14-2021 Anion gap [Moles/Vol] 12 mmol/L 10 - 2 0 mmol/L [facility] Calcium [Mass/Vol] 9.2 mg/dL 8.4 - 10. 2 mg/dL [facility] Chloride [Moles/Vol] 104 mmol/L 98 - 10 8 mmol/L [facility] Creatinine [Mass/Vol] 1.77 mg/dL High 0.60 - 1.20 [facility] GFR/1.73 sq M.predicted CKD-EPI (S/P/Bld) [Vol rate/Area] 30 Low >=60 mL/min/1.73 m2 [facility] Glucose [Mass/Vol] 112 mg/dL High 65 - 99 mg/dL [facility] HCO3 [Moles/Vol] 25 mmol/L 21 - 32 mmol/L [facility] Potassium [Moles/Vol] 4.8 mmol/L 3.5 - 5.1 mmol/L [facility] Sodium [Moles/Vol] 136 mmol/L 135 - 145 mmol/L [facility] Urea nitrogen [Mass/Vol] 35 mg/dL High 8 - 25 mg/dL [facility] Urea nitrogen/Creatinine [Mass ratio] 19.8 mg/mg [facility] The eGFR should be u sed for monitoring renal function only and not for medication dosing. [facility] CBC WITH AUTO DIFFERENTIALOr dered By: Georgie Vázquez on 04-14-2021 Basophils (Bld) [#/Vol] 0.07 10*3/uL [facility] Basophils/100 WBC (Bld) 1.0 % [facility] Eosinophils (Bld) [#/Vol] 0.12 10*3/uL [facility] Eosinophils/100 WBC (Bld) 1.6 % [facility] Erythrocyte distribution width (RBC) [Entitic vol] 17.5 % High 11.6 - 14.8 % [facility] Hematocrit (Bld) [Volume fraction] 39.6 % 36.0 - 46.0 % [facility] Hemoglobin (Bld) [Mass/Vol] 12.0 g/dL 12.0 - 16.0 g/dL [facility] Immature granulocytes (Bld) [#/Vol] 0.02 10*3/uL [facility] Immature granulocytes/100 WBC (Bld) 0.30 % [facility] Comment on above: The IG parameter is the percentage of metamyelocytes, myelocytes and promyelocytes. An immature granulocyte count (IG) of 1% or more suggests the possibility of infection, an IG count of 3% is very likely related to an infection. Interpretation and review of laboratory results Abnormal [facility] Lymphocytes (Bld) [#/Vol] 1.44 10*3/uL [facility] Lymphocytes/100 WBC (Bld) 19.6 % [facility] MCH (RBC) [Entitic mass] 24.0 pg Low 26.0 - 34.0 pg [facility] MCHC (RBC) [Mass/Vol] 30.3 g/dL Low 31.0 - 37.0 g/dL [facility] MCV (RBC) [Entitic vol] 79.4 fL Low 80.0 - 100.0 fL [facility] Monocytes (Bld) [#/Vol] 0.52 10*3/uL [facility] Monocytes/100 WBC (Bld) 7.1 % [facility] Neutrophils (Bld) [#/Vol] 5.16 10*3/uL [facility] Neutrophils/100 WBC (Bld) 70.4 % [facility] Nucleated RBC (Bld) [#/Vol] 0.00 10*3/uL [facility] Nucleated RBC/100 WBC (Bld) [Ratio] 0.0 % [facility] Platelet mean volume (Bld) [Entitic vol] 10.9 fL 9.4 - 12.4 fL [facility] Platelets (Bld) [#/Vol] 282 10*3/uL [facility] RBC (Bld) [#/Vol] 4.99 10*6/uL [facility] eah WBC (Bld) [#/Vol] 7.33 10*3/uL [facility] CPK NO MBOrdered By: Georgie Vázquez on 04-14-2021 CK [Catalytic activity/Vol] 1936 U/L High 40 - 170 U/L [facility] Gold TopOrdered By: Georgie carey on 04-14-2021 Extra Tube Hold for add-ons. [facility] Comment on above: Auto resulted. [facility] Magnesium LevelOrdered By: Damari Vázquez on 04-14-2021 Magnesium [Mass/Vol] 2.2 mg/dL 1.6 - 2 .4 mg/dL [facility] Magnesium [Mass/Vol]Ordered By: Georgie Vázquez on 04-14-2021 [facility] No Panel InformationOrdered By: Georgie Vázquez on 04-14-2021 Extra Tube Hold for add-ons. [facility] Comment on above: Auto resulted. [facility] Extra Tube Hold for add-ons. [facility] Comment on above: Auto resulted. [facility] Interpretation and review of laboratory results Abnormal [facility] Interpretation and review of laboratory results Normal [facility] PhosphorusOrdered By: Georgie Vázquez on 04-14-2021 Phosphate [Mass/Vol] 3.5 mg/dL 2.8 - 4 .1 mg/dL [facility] Therapy Communicationon Therapy Communication Message RADHA SHAFER no showed today . No voicemail set up. Signatures Electronically signed by : Anjana Hernandez PTA; Apr 14 2021 4:45PM EST (Author) Normal [facility] URINALYSISOrdered By: Georgie Vázquez on 04-14-2021 Bacteria Auto Ql (U) None Seen None Se en /hpf [facility] Clarity Refractometry automated (U) Clear Clear [facility] Color (U) Yellow Colorless, Yellow [facility] Glucose Auto test strip (U) [Mass/Vol] Negative Negative mg/dL [facility] Ketones (U) [Mass/Vol] Negative Negat radha mg/dL [facility] Leukocyte esterase Auto test strip Ql (U) Negative Negative [facility] pH (U) 5.5 [pH] [facility] Specific gravity (U) [Rel density] 1.014 [facility] UrinalysisOrdered By: Georgie Vázquez on 04-14-2021 Bilirubin Ql (U) Negative Negative [facility] th Epithelial cells.squamous Auto (Urine sed) [#/Area] <1 [facility] Hemoglobin Auto test strip Ql (U) Small Abnormal Negative [facility] Interpretation and review of laboratory results Abnormal [facility] Mucus Auto (Urine sed) [#/Area] Rare None Seen, Rare /lpf [facility] Nitrite Auto test strip Ql (U) Negative Negative [facility] Protein (U) [Mass/Vol] 30 mg/dL Abnormal Negat radha mg/dL [facility] Comment on above: False positive resul ts may occur in urines with large amounts of hemoglobin, pH greater than 8.0, contrast medium, or disinfectants including ammonium compounds. Urobilinogen (U) [Mass/Vol] mg/dL <2.0 mg/dL [facility] WBC Auto (Urine sed) [#/Area] 1 [facility] Microscopic examinat ion is performed on all urinalysis samples and only positive findings are reported. The test for blood on the chemical analytic portion of urinalysis may also be positive due to hemoglobinuria and myoglobinuria and if red blood cells are present they are quantified by microscopic examination. [facility] Therapy Communicationon Therapy Communication Message RADHA SHAFER [...] secs on/20 off with lbs as tolerated. STEAMFITTER SUPERVISOR can also manual distraction and soft tissue [...] code time is 50 minutes. Therapeutic exercise (54844): timed minutes 25, units 2 . UBE L2 3'fwd/3''bwd scap retraction 2x10 (X) bwd shoulder rolls 2x10 (X) UT stretch 20 x2 B (X) LS stretch 20 x2B (X) chin tucks supine 2x10 3 hold cervical rotation supine x10 each supine B ER pull aparts orange x10 (X) supine B H abd pull aparts orange x10 (X). Manual Therapy (31673): timed minutes 10, units 1 . STW to B UT, LS, SCM, paraspinals. Modalities: untimed minutes 15, units 1 . Intermittent Mechanical Traction: 20#/10# on 30/10 cycle x 15 mins 6step progressive/regressive. 'Scores and Scales' Signatures Electronically signed by : Eli Alexander STEAMFITTER SUPERVISOR; Apr 09 2021 4:58PM EST (Author) Electronically signed by : Elana Westbroko PT; Apr 15 2021 9:11AM EST Normal [facility] PT Progress Noteon PT Progress [...] secs on/20 off with lbs as tolerated. STEAMFITTER SUPERVISOR can also manual distraction and soft tissue [...] Patient continues to present with cervical tightness/restriction, STEAMFITTER SUPERVISOR notes palpable increase in tissue density throughout [...] in clinic is 58 minutes. Therapeutic exercise (27855): timed minutes 30, units 2 . UBE L2 2'fwd/2'bwd scap retraction 2x10 bwd shoulder rolls 2x10 UT stretch 20 x2 B LS stretch 20 x2B chin tucks supine 2x10 3 hold cervical rotation supine x10 each supine B ER pull aparts orange x10 supine B H abd pull aparts orange x10. Manual Therapy (39278): timed minutes 10, units 1 . STW to B UT, LS, SCM, paraspinals. Modalities: untimed minutes 15, units 1 . Intermittent Mechanical Traction: 20#/10# on 30/10 cycle x 15 mins 6step progressive/regressive. 'Scores and Scales' Signatures Electronically signed by : River Sweeney PTA; Apr 01 2021 7:45AM EST (Author) Electronically signed by : Elana Westbrook PT; Apr 06 2021 3:40PM EST Normal [facility] Therapy Communicationon 03-07 Therapy Communication Message RADHA HOLLIS canceled today . Signatures Electronically signed by : Anjana Hernandez PTA; Mar 29 2021 2:14PM EST (Author) Normal [facility] PT Progress Noteon PT Progress Note Therapy [...] secs on/20 off with lbs as tolerated. STEAMFITTER SUPERVISOR can also manual distraction and soft tissue [...] code time is 40 minutes. Therapeutic exercise (94726): timed minutes 30, units 2 . UBE L2 2'fwd/2'bwd scap retraction 2x10 bwd shoulder rolls 2x10 UT stretch 20 x2 B LS stretch 20 x2B chin tucks supine 2x10 3 hold cervical rotation supine x5 each supine B ER pull aparts orange x10 supine B H abd pull aparts orange x10. Manual Therapy (40780): timed minutes 10, units 1 . STW to B UT, LS, SCM, paraspinals. Modalities: untimed minutes 15, units 1 . Intermittent Mechanical Traction: 20#/10# on 30/10 cycle x 15 mins 6step progressive/regressive. 'Scores and Scales' Signatures Electronically signed by : River Sweeney STEAMFITTER SUPERVISOR; Mar 26 2021 4:31PM EST (Author) Electronically signed by : Elana Westbrook, PT; Mar 31 2021 11:38AM EST Normal [facility] PT Progress Noteon 1 PT Progress Note [...] secs on/20 off with lbs as tolerated. STEAMFITTER SUPERVISOR can also manual distraction and soft tissue [...] code time is 38 minutes. Therapeutic exercise (85590): timed minutes 30, units 2 . UBE L2 2'fwd/2'bwd scap retraction 2x10 bwd shoulder rolls 2x10 UT stretch 20 x2 B LS stretch 20 x2B chin tucks supine 2x10 3 hold cervical rotation supine x5 each supine B ER pull aparts orange x10 supine B H abd pull aparts orange x10. Manual Therapy (62181): timed minutes 8, units 1 . STW to B UT, LS, SCM, paraspinals. Modalities: untimed minutes 14, units 1 . mechanical traction intermittent with 30 secs on/20 off with 20 lbs , 2 step, 50% rope speed. 'Scores and Scales' Signatures Electronically signed by : Anjana Hernandez STEAMFITTER SUPERVISOR; Mar 24 2021 5:37PM EST (Author) Electronically signed by : Elana Westbrook, PT; Mar 31 2021 11:38AM EST Normal [facility] Initial Evaluationon 03-06 PT Initial Evaluation [...] secs on/20 off with lbs as tolerated. STEAMFITTER SUPERVISOR can also manual distraction and soft tissue [...] aren't converted (more content not included)... Normal [facility] Therapy Communicationon 11-07 Therapy Communication Message RADHA SHAFER was (D/C)- last seen: . eval only-patient never called back to schedule, a VM was left at 1022am on 10-20-20. Will discharge at this tiem. Signatures Electronically signed by : Elana Westbrook PT; Nov 25 2020 7:37AM EST (Author) Normal [facility] [place] ORT LARGE JOINT ARTHROCEN TESISon 11-09-2020 John Marcial NP 11/09/2020 10:32 AM LG Jt Injection/Arthrocentesi s: R knee Performed by: Flori Rodrigues CNP Authorized by: Flori Rodrigues CNP CPT 72273 - Large Joint Arthrocentesis: Consent given by: [...] procedure well with no immediate complications [facility] XR Knee Right 4+VWS (Note in Comments)on 11-09-2020 No acute right knee abnormality. Degenerative joint disease findings are present. Previous left knee replacement is noted. [employer] Workstation ID: [id number] [facility] EXAMINATION: XR KNEE RIGHT 4+ [...] is noted without evidence displacement disruption. [facility] Interface, Rad In Fu ji [...] is noted. RWA/ges Workstation ID: [id number] [facility] XR Knee Right 2 Views [...] effusion is suspected. Workstation ID: [id number] [facility] EXAMINATION: XR KNEE RIGHT 2 VIEWS (STANDARD) 11/02/2020 1:48 pm HISTORY: ORDERING SYSTEM PROVIDED HISTORY: pain, TECHNOLOGIST PROVIDED HISTORY: Illness/Other Reason for exam: Right knee pain x 5 days Cancer History: thyroid Surgery, RadiationHistory: bilateral thyroidectomy Encounter Type: Initial Additional signs and symptoms: No known injury ORDERING SYSTEM PROVIDED DIAGNOSIS CODES: COMPARISON: 06/09/2013 [facility] - 11/02/2020 2:04 PM EST EXAMINATION: XR [...] effusion is suspected. Workstation ID: [id number] [facility] PT Initial Evaluationon PT Initial [...] wild horses). (more content not included)... Normal [facility] [place] ORT LARGE JOINT ARTHROCEN [facility] 09-15-2020 Rivas Jules MD 09/15/2020 3:06 PM LG Jt Injection/Arthrocentesi s: R subacromial bursa Performed by: Rivas Jules MD Authorized by: Rivas Jules MD CPT 18746 - Large Joint Arthrocentesis: Consent given by: Patient Timeout performed at: 09/15/2020 3:05 PM Physician or proceduralist has discussed critical or nonroutine steps, procedure duration and anticipated blood loss: Yes Supporting Documentation: Indications: Pain Procedure Details: Location: Shoulder Site: R subacromial bursa Needle size: 22 G Medications: 40 mg methylPREDNISolone acetate 40 mg/mL Anesthetic used: Lidocaine 1% [facility] XR Shoulder Right 1 Viewon 1 11-15-2019 Postsurgical and degenerative changes without acute osseous abnormality. Workstation ID: [id number] [facility] EXAMINATION: XR SHOULDER RIGHT 1 [...] spur. Calcifications overlie the right hemithorax. [facility] Interface, Rad In Fu ji [...] acute osseous abnormality. Workstation ID: [id number] [facility] Ultrasound ankle / brachial indices extremity completeon 05-15-2020 Patient Info Name: RADHA SHAFER Age: 60 years : 1960 Gender: Female Exam Date: 05/15/2020 2:11 PM Site Location: [facility] Patient Status: Outpatient Staff Ordering Physician: ELANA PENA [employer] Leader: Kia Peacock RVT Referring Physician: ELANA PENA ; Indications I73.9 - Peripheral vascular disease, unspecified Procedure Description 31744 Limited bilateral noninvasive physiologic studies of upper [...] MD, RPVI on 05/15/2020 05:02 PM [facility] Interface, Rad In Heart[facility] Xper [facility] - 05/15/2020 5:03 PM EDT Patient Info Name: RADHA SHAFER Age: 60 years : 1960 Gender: Female Exam Date: 05/15/2020 2:11 PM Site Location: [facility] Patient Status: Outpatient Staff Ordering Physician: ELANA PENA [employer] Leader: Kia Peacock RVT Referring Physician: ELANA PENA ; Indications I73.9 - Peripheral vascular disease, unspecified Procedure Description 78808 Limited bilateral noninvasive physiologic studies of upper [...] MD, RPVI on 05/15/2020 05:02 PM [facility] XR Foot 3+ Views Righton XR Foot 3+ Views Right Exam Date/Time: 07/24/2019 16:05 EDT Reason for Exam: pain in right foot Report STUDY: XR Foot 3+ Views Right; 07/24/2019 4:05 pm INDICATION: pain in right foot. COMPARISON: None. ACCESSION NUMBER(S): [id number] ORDERING CLINICIAN: Rusty Dozier TECHNIQUE: Three views [...] Signed by: Uriah Elizalde MD Technologist: VINNY [facility] ECHOCARDIOGRAM COMPLETEon Transthoracic Echocardiogram _ Patient: HOLLIS Benitez [facility] Rec#: [id number] (Age): 1960(59y) Height: 165.1(cm)/64(in Study Date: 05/07/2019 Weight: 93.44(kg)/206(l Room#: MOB BSA: [id number] Type: Outpatient Loc: Echo Room 1 Sex: F _ Reading: Eleonora Sawyer MD Referring: WHITLEY Kaufman M.D. [employer] Leader: Rina Shay RN, [facility] History: Cancer. -thyroidCOPD. Hypertension. Hypothyroidism. Renal [...] ILSA (continuity Vmax) index 1.52 cm2/m2 none ISLA (continuity VTI) 2.85 cm2 none ILSA (continuity [...] none Electronically Signed at 05/07/2019 16:22:37 by: Elenoora Sawyer MD [facility] Interface, Rad In Heartlab Xper [facility] - 05/07/2019 4:40 PM EDT Transthoracic Echocardiogram _ Patient: HOLLIS Benitez [facility] Rec#: [id number] (Age): 1960(59y) Height: 165.1(cm)/64(in Study Date: 05/07/2019 Weight: 93.44(kg)/206(l Room#: MOB BSA: [id number] Type: Outpatient Loc: Echo Room 1 Sex: F _ Reading: Eleonora Sawyer MD Referring: WHITLEY Kaufman M.D. [employer] Leader: Rina Shay RN, [facility] History: Cancer. -thyroidCOPD. Hypertension. Hypothyroidism. Renal [...] 05/07/2019 16:22:37 by: Eleonora Sawyer MD [facility] Otheron 05-07-2019 Extra Tube Hold for add-ons. [facility] Comment on above: Auto resulted. ECG 12-LEADon 04-05-2019 Atrial Rate [facility] P [place] [facility] P-R Interval [facility] Q-T Interval [facility] Q-T Interval (corrected) [facility] QRS Duration [facility] QTC Calculation (Bezet) [facility] [place] [facility] T [place] [facility] Ventricular Rate [facility] th Albuminon 02-13-2019 Albumin [Mass/Vol] 4.0 g/dL Normal 3.4-5.0 [facility] Comment on above: Performed By: #### 2 [id number] #### [facility] [address] [place] [address] BUNon 02-13-2019 Urea nitrogen [Mass/Vol] 23 mg/dL Normal 6-23 [facility] Comment on above: Performed By: #### 2 [id number] #### [facility] [employer] [address] [place] [address] Calciumon 02-13-2019 Calcium [Mass/Vol] 9.1 mg/dL Normal 8.6-10.3 [facility] Comment on above: Performed By: #### 2 [id number] #### [facility] [employer] [address] [place] [address] Creatinineon 02-13-2019 Creatinine [Mass/Vol] 1.4 mg/dL High 0.5-1.1 [facility] Comment on above: Performed By: #### 2 [id number] #### [facility] [employer] [address] [place] [address] Hct & Hgbon 02-13-2019 Hematocrit (Bld) [Volume fraction] 38.3 % Normal 36.0-48.0 [facility] Comment on above: Performed By: #### 1 [id number] #### [facility] [employer] [address] [place] [address] Hemoglobin (Bld) [Mass/Vol] 12.1 g/dL Normal 12.0-16.0 [facility] Comment on above: Performed By: #### 1 [id number] #### [facility] [employer] [address] [place] [address] Lyteson 02-13-2019 Anion gap [Moles/Vol] 11 mmol/L Normal 10-20 [facility] Comment on above: Performed By: #### 2 [id number] #### [facility] [employer] [address] [place] [address] Chloride [Moles/Vol] 103 mmol/L Normal 98-107 [facility] Comment on above: Performed By: #### 2 [id number] #### [facility] [employer] [address] [place] [address] CO2 [Moles/Vol] 28.0 mmol/L Normal 21.0-32.0 [facility] Comment on above: Performed By: #### 2 [id number] #### [facility] [employer] [address] [place] [address] Potassium [Moles/Vol] 4.8 mmol/L Normal 3.5-5.3 [facility] Comment on above: Performed By: #### 2 [id number] #### [facility] [employer] [address] [place], [place] [address] Sodium [Moles/Vol] 137 mmol/L Normal 136-145 [facility] Comment on above: Performed By: #### 2 [id number] #### B[facility] [employer] [address] [place] [address] Phosphoruson 02-13-2019 Phosphate [Mass/Vol] 4.0 mg/dL Normal 2.5-4.9 [facility] Comment on above: Performed By: #### 2 [id number] #### BREANA [employer] [address] [place] [address] U Creatinineon 02-13-2019 U Creatinine 39 mg/dL Normal 20-300 [facility] Comment on above: Performed By: #### 2 [id number] #### [facility] [employer] [address] [place] [address] U Proteinon 02-13-2019 Protein [Mass/Vol] 18 mg/dL High 1-14 [facility] Comment on above: Performed By: #### 1 [id number] #### BREANA [employer] [address] [place] [address] eGFRon 02-13-2019 GFR/1.73 sq M predicted among non-blacks MDRD (S/P/Bld) [Vol rate/Area] 45 mL/min/1.73 m2 [facility] Comment on above: Order Comment: Order added by Discern Expert. Performed By: #### 1 [id number] #### BREANA [employer] [address] [place] [address] GFR/1.73 sq M predicted among non-blacks MDRD (S/P/Bld) [Vol rate/Area] 37 mL/min/1.73 m2 [facility] Comment on above: Order Comment: Order added by Discern Expert. Performed By: #### 1 [id number] #### BREANA [facility] [place] [address] XR Hip 2-3 Views Right + Pel vison 01-24-2019 XR Hip 2-3 Views Right + Pelvis Exam Date/Time: 01/23/2019 13:20 EDT Reason for Exam: pain in right hip Report STUDY: XR Hip 2-3 Views Right + Pelvis;; 01/23/2019 1:20 pm INDICATION: pain in right hip. COMPARISON: None. ACCESSION NUMBER(S): [id number] ORDERING CLINICIAN: Rusty Dozier FINDINGS: Pelvis and [...] by: Jair Santos MD Technologist: DAVEY Normal [facility] Comprehensive Metabolic Pane jett 12-01-2018 Albumin mass conc 3.0 g/dL Low 3.2-5.2 [facility] Comment on above: Performed By: #### C BCWOD, PT, PTT, DDIMR, EDCTNI, NTPROBNP, CHEM8, LIPASE, CMETADD #### Unless otherwise noted, all testing performed by [place] [address] CLIA: [id number] Refuge Manager: Maurice Coello M.D. ALP enzyme act/vol 88 U/L Normal 40-150 [facility] Comment on above: Performed By: #### C BCWOD, PT, PTT, DDIMR, EDCTNI, NTPROBNP, CHEM8, LIPASE, CMETADD #### Unless otherwise noted, all testing performed by [place] [address] CLIA: [id number] Refuge Manager: Maurice Coello M.D. ALT enzyme act/vol 34 U/L Normal 14-65 [facility] Comment on above: Result Comment: This test result might be falsely depressed or falsely elevated on samples drawn from patients taking Sulfasalazine and Sulfapyridine. Venipuncture should occur prior to taking either of these drugs. Performed By: #### C BCWOD, PT, PTT, DDIMR, EDCTNI, NTPROBNP, CHEM8, LIPASE, CMETADD #### Unless otherwise noted, all testing performed by [place] [address] CLIA: [id number] Refuge Manager: Maurice Coello M.D. AST enzyme act/vol 67 U/L High 0-45 [facility] Comment on above: Result Comment: This test result might be falsely depressed or falsely elevated on samples drawn from patients taking Sulfasalazine and Sulfapyridine. Venipuncture should occur prior to taking either of these drugs. Performed By: #### C BCWOD, PT, PTT, DDIMR, EDCTNI, NTPROBNP, CHEM8, LIPASE, CMETADD #### Unless otherwise noted, all testing performed by [place] [address] CLIA: [id number] Refuge Manager: Maurice Coello M.D. Bilirubin mass conc 0.3 mg/dL Normal 0.3-1.[address] [facility] Comment on above: Performed By: #### C BCWOD, PT, PTT, DDIMR, EDCTNI, NTPROBNP, CHEM8, LIPASE, CMETADD #### Unless otherwise noted, all testing performed by [place] [address] CLIA: [id number] Refuge Manager: Maurice Coello M.D. Calcium mass conc 8.6 mg/dL Normal 8.4-10.2 [facility] Comment on above: Performed By: #### C BCWOD, PT, PTT, DDIMR, EDCTNI, NTPROBNP, CHEM8, LIPASE, CMETADD #### Unless otherwise noted, all testing performed by [place] [address] CLIA: [id number] Refuge Manager: Maurice Coello M.D. Chloride molar conc 112 mmol/L High 98-[address] [facility] Comment on above: Performed By: #### C BCWOD, PT, PTT, DDIMR, EDCTNI, NTPROBNP, CHEM8, LIPASE, CMETADD #### Unless otherwise noted, all testing performed by [place] [address] CLIA: [id number] Refuge Manager: Maurice Coello M.D. CO2 molar conc 21 mmol/L Normal 21-32 [facility] Comment on above: Performed By: #### C BCWOD, PT, PTT, DDIMR, EDCTNI, NTPROBNP, CHEM8, LIPASE, CMETADD #### Unless otherwise noted, all testing performed by [place] [address] CLIA: [id number] Refuge Manager: Maurice Coello M.D. Creatinine mass conc 1.28 mg/dL High 0.40-1.10 [facility] Comment on above: Performed By: #### C BCWOD, PT, PTT, DDIMR, EDCTNI, NTPROBNP, CHEM8, LIPASE, CMETADD #### Unless otherwise noted, all testing performed by [place] [address] CLIA: [id number] Refuge Manager: Maurice Coello M.D. GFR/1.73 sq M predicted among blacks MDRD vol rate/area (S/P/Bld) 51 mL/min/{1.73_m2} Low >60 [facility] Comment on above: Result Comment: Afri can Kenyan GFR Calc Performed By: #### C BCWOD, PT, PTT, DDIMR, EDCTNI, NTPROBNP, CHEM8, LIPASE, CMETADD #### Unless otherwise noted, all testing performed by [place] [address] CLIA: [id number] Refuge Manager: Maurice Coello M.D. GFR/1.73 sq M predicted among non-blacks MDRD vol rate/area (S/P/Bld) 42 mL/min/{1.73_m2} Low >60 [facility] Comment on above: Result Comment: Non- GFR [...] Unless otherwise noted, all testing performed by [place] [address] CLIA: [id number] Refuge Manager: Maurice Coello M.D. Glucose mass conc 88 mg/dL Normal 70-99 [facility] Comment on above: Result Comment: This test result might be falsely depressed or falsely elevated on samples drawn from patients taking Sulfasalazine and Sulfapyridine. Venipuncture should occur prior to taking either of these drugs. Performed By: #### C BCWOD, PT, PTT, DDIMR, EDCTNI, NTPROBNP, CHEM8, LIPASE, CMETADD #### Unless otherwise noted, all testing performed by [place] [phone] CLIA: [id number] Refuge Manager: Maurice Coello M.D. Potassium molar conc 4.0 mmol/L Normal 3.5-5.1 [facility] Comment on above: Performed By: #### C BCWOD, PT, PTT, DDIMR, EDCTNI, NTPROBNP, CHEM8, LIPASE, CMETADD #### Unless otherwise noted, all testing performed by [place] [address] CLIA: [id number] Refuge Manager: Maurice Coello M.D. Protein mass conc 7.0 g/dL Normal 6.0-8.0 [facility] Comment on above: Performed By: #### C BCWOD, PT, PTT, DDIMR, EDCTNI, NTPROBNP, CHEM8, LIPASE, CMETADD #### Unless otherwise noted, all testing performed by [place] [address] CLIA: [id number] Refuge Manager: Maurice Coello M.D. Sodium molar conc 139 mmol/L Normal 135-145 [facility] Comment on above: Performed By: #### C BCWOD, PT, PTT, DDIMR, EDCTNI, NTPROBNP, CHEM8, LIPASE, CMETADD #### Unless otherwise noted, all testing performed by [place] [address] CLIA: [id number] Refuge Manager: Maurice Coello M.D. Urea nitrogen mass conc 7 mg/dL Low 8-25 [facility] Comment on above: Performed By: #### C BCWOD, PT, PTT, DDIMR, EDCTNI, NTPROBNP, CHEM8, LIPASE, CMETADD #### Unless otherwise noted, all testing performed by [place] [address] CLIA: [id number] Refuge Manager: Maurice Coello M.D. BUN and Creatinineon 019 Creatinine mass conc 1.44 mg/dL High 0.40-1.10 [facility] Comment on above: Performed By: #### C BCWOD, PT, PTT, DDIMR, EDCTNI, NTPROBNP, CHEM8, LIPASE, CMETADD #### Unless otherwise noted, all testing performed by [place] [address] CLIA: [id number] Refuge Manager: Maurice Coello M.D. GFR/1.73 sq M predicted among blacks MDRD vol rate/area (S/P/Bld) 45 mL/min/{1.73_m2} Low >60 [facility] Comment on above: Result Comment: Afri can Kenyan GFR Calc Performed By: #### C BCWOD, PT, PTT, DDIMR, EDCTNI, NTPROBNP, CHEM8, LIPASE, CMETADD #### Unless otherwise noted, all testing performed by [place] [id number] CLIA: [id number] Refuge Manager: Maurice Coello M.D. GFR/1.73 sq M predicted among non-blacks MDRD vol rate/area (S/P/Bld) 37 mL/min/{1.73_m2} Low >60 [facility] Comment on above: Result Comment: Non- GFR [...] Unless otherwise noted, all testing performed by [place] [address] CLIA: [id number] Refuge Manager: Maurice Coello M.D. Urea nitrogen mass conc 13 mg/dL Normal 8-25 [facility] Comment on above: Performed By: #### C BCWOD, PT, PTT, DDIMR, EDCTNI, NTPROBNP, CHEM8, LIPASE, CMETADD #### Unless otherwise noted, all testing performed by [place] [address] CLIA: [id number] Refuge Manager: Maurice Coello M.D. C. difficile Assayon 019 C. difficile interpretation Negative Normal [facility] Comment on above: Result Comment: Rapi d test procedural control acceptable. Performed By: #### C BCWOD, PT, PTT, DDIMR, EDCTNI, NTPROBNP, CHEM8, LIPASE, CMETADD #### Unless otherwise noted, all testing performed by [facility] [address] [place], [place] [address] CLIA: [id number] Refuge Manager: Maurice Coello M.D. CT ABDO,PELVIS W/O CONTRASTo n 11-30-2018 CT ABDO,PELVIS W/O CONTRAST Final Report Accession No: [id number] Performed: Nov 30 2018 11:24AM Examination: [...] PERKINS D.O. Trans: mh : cc: Normal [facility] Culture, Stoolon 11-30-2018 Culture, Stool Test Name: Culture, Stool Culture Status: Final Culture Report: Lack of Normal Dawna Noted. No Salmonella, Shigella, Yersinia, or Campylobacter isolated. Micro Source: Stool Shiga Toxin 1: Insufficient growth to perform test. Shiga Toxin 2: Insufficient growth to perform test. Normal [facility] Comment on above: Performed By: #### C BCWOD, PT, PTT, DDIMR, EDCTNI, NTPROBNP, CHEM8, LIPASE, CMETADD #### Unless otherwise noted, all testing performed by [place] [address] CLIA: [id number] Refuge Manager: Maurice Coello M.D. Gram Stainon 11-30-2018 Microscopic observation Gram stain Nom (Unsp spec) Test Name: Gram Stain Culture Status: Final Gram Stain: No WBC's Many mixed bowel dawna. Normal F [facility] Comment on above: Performed By: #### C BCWOD, PT, PTT, DDIMR, EDCTNI, NTPROBNP, CHEM8, LIPASE, CMETADD #### Unless otherwise noted, all testing performed by [place] [address] CLIA: [id number] Refuge Manager: Maurice Coello M.D. Lactic Acidon 11-30-2018 Lactate molar conc 0.8 mmol/L Normal 0.6-2.0 [facility] Comment on above: Performed By: #### C BCWOD, PT, PTT, DDIMR, EDCTNI, NTPROBNP, CHEM8, LIPASE, CMETADD #### Unless otherwise noted, all testing performed by [place] [address] [address] [place], [place] [address] CLIA: [id number] Refuge Manager: Maurice Coello M.D. Progress Noteon 11-30-2018 Protein mass conc [facility] [address] [place] [id number] NAME RADHA SHAFER [facility] [id number] 1960 DATE PROGRESS NOTE ORTHOPEDIC PROGRESS NOTE [...] left knee. MD Krzysztof HENDERSON 11/30/2018 12:22 [id number] T 11/30/2018 13:43 MCB/MODL Electronically Signed By Maycol Alvarado M.D. on 01 Dec 2018 15:44:03 GMT Normal [facility] Specimen Acceptable (CDIF)on 11-30-2018 Specimen Acceptable (CDIF) YES Normal [facility] Comment on above: Result Comment: Trudi perdomo ifficile testing result(s) to follow. Performed By: #### C BCWOD, PT, PTT, DDIMR, EDCTNI, NTPROBNP, CHEM8, LIPASE, CMETADD #### Unless otherwise noted, all testing performed by [place] [address] CLIA: [id number] Refuge Manager: Maurice Coello M.D. BUN and Creatinineon 019 Creatinine mass conc 1.26 mg/dL High 0.40-1.10 [facility] Comment on above: Performed By: #### C BCWOD, PT, PTT, DDIMR, EDCTNI, NTPROBNP, CHEM8, LIPASE, CMETADD #### Unless otherwise noted, all testing performed by [place] [address] CLIA: [id number] Refuge Manager: Maurice Coello M.D. GFR/1.73 sq M predicted among blacks MDRD vol rate/area (S/P/Bld) 52 mL/min/{1.73_m2} Low >60 [facility] Comment on above: Result Comment: Afri can Kenyan GFR Calc Performed By: #### C BCWOD, PT, PTT, DDIMR, EDCTNI, NTPROBNP, CHEM8, LIPASE, CMETADD #### Unless otherwise noted, all testing performed by [place] [address] CLIA: [id number] Refuge Manager: Maurice Coello M.D. GFR/1.73 sq M predicted among non-blacks MDRD vol rate/area (S/P/Bld) 43 mL/min/{1.73_m2} Low >60 [facility] Comment on above: Result Comment: Non- GFR [...] Unless otherwise noted, all testing performed by [place] [address] CLIA: [id number] Refuge Manager: Maurice Coello M.D. Urea nitrogen mass conc 10 mg/dL Normal 8-25 [facility] Comment on above: Performed By: #### C BCWOD, PT, PTT, DDIMR, EDCTNI, NTPROBNP, CHEM8, LIPASE, CMETADD #### Unless otherwise noted, all testing performed by [place] [address] CLIA: [id number] Refuge Manager: Maurice Coello M.D. CBC with Diffon 11-28-2018 Basophils #/vol (Bld) 0.1 K/mcL Normal 0-0.2 [facility] Comment on above: Performed By: #### C BCWOD, PT, PTT, DDIMR, EDCTNI, NTPROBNP, CHEM8, LIPASE, CMETADD #### Unless otherwise noted, all testing performed by [place] [address] CLIA: [id number] Refuge Manager: Maurice Coello M.D. Basophils/100 WBC (Bld) 0.9 % Normal [facility] Comment on above: Performed By: #### C BCWOD, PT, PTT, DDIMR, EDCTNI, NTPROBNP, CHEM8, LIPASE, CMETADD #### Unless otherwise noted, all testing performed by [place] [address] CLIA: [id number] Refuge Manager: Maurice Coello M.D. Eosinophils #/vol (Bld) 0.1 K/mcL Normal 0-0.5 [facility] Comment on above: Performed By: #### C BCWOD, PT, PTT, DDIMR, EDCTNI, NTPROBNP, CHEM8, LIPASE, CMETADD #### Unless otherwise noted, all testing performed by [place] [address] CLIA: [id number] Refuge Manager: Maurice Coello M.D. Eosinophils/100 WBC (Bld) 1.5 % Normal [facility] Comment on above: Performed By: #### C BCWOD, PT, PTT, DDIMR, EDCTNI, NTPROBNP, CHEM8, LIPASE, CMETADD #### Unless otherwise noted, all testing performed by [place] [address] CLIA: [id number] Refuge Manager: Maurice Coello M.D. Erythrocyte distribution width Ratio (RBC) 16.8 % High 10.0-14.4 [facility] Comment on above: Performed By: #### C BCWOD, PT, PTT, DDIMR, EDCTNI, NTPROBNP, CHEM8, LIPASE, CMETADD #### Unless otherwise noted, all testing performed by [place] [address] CLIA: [id number] Refuge Manager: Maurice Mode, M.D. Hematocrit Volume Fraction (Bld) 32.8 % Low 34.4-44.8 [facility] Comment on above: Performed By: #### C BCWOD, PT, PTT, DDIMR, EDCTNI, NTPROBNP, CHEM8, LIPASE, CMETADD #### Unless otherwise noted, all testing performed by [place] [address] CLIA: [id number] Refuge Manager: Maurice Coello M.D. Hemoglobin mass conc (Bld) 10.8 g/dL Low 11.6-15.4 [facility] Comment on above: Performed By: #### C BCWOD, PT, PTT, DDIMR, EDCTNI, NTPROBNP, CHEM8, LIPASE, CMETADD #### Unless otherwise noted, all testing performed by [place] [address] CLIA: [id number] Refuge Manager: Maurice Coello M.D. Lymphocytes #/vol (Bld) 1.8 K/mcL Normal 1.0-3.7 [facility] Comment on above: Performed By: #### C BCWOD, PT, PTT, DDIMR, EDCTNI, NTPROBNP, CHEM8, LIPASE, CMETADD #### Unless otherwise noted, all testing performed by [place] [address] CLIA: [id number] Refuge Manager: Maurice Coello M.D. Lymphocytes/100 WBC (Bld) 20.7 % Normal [facility] Comment on above: Performed By: #### C BCWOD, PT, PTT, DDIMR, EDCTNI, NTPROBNP, CHEM8, LIPASE, CMETADD #### Unless otherwise noted, all testing performed by [place] [address] CLIA: [id number] Refuge Manager: Maurice Coello M.D. MCH Entitic mass (RBC) 25.3 pg Low 27.9-33.9 [facility] Comment on above: Performed By: #### C BCWOD, PT, PTT, DDIMR, EDCTNI, NTPROBNP, CHEM8, LIPASE, CMETADD #### Unless otherwise noted, all testing performed by [place] [address] CLIA: [id number] Refuge Manager: Maurice Coello M.D. MCHC mass conc (RBC) 33.0 g/dL Low 33.1-35.1 [facility] Comment on above: Performed By: #### C BCWOD, PT, PTT, DDIMR, EDCTNI, NTPROBNP, CHEM8, LIPASE, CMETADD #### Unless otherwise noted, all testing performed by [place] [address] CLIA: [id number] Refuge Manager: Maurice Coello M.D. MCV Entitic volume (RBC) 76.7 fL Low 82.6-98.9 [facility] Comment on above: Performed By: #### C BCWOD, PT, PTT, DDIMR, EDCTNI, NTPROBNP, CHEM8, LIPASE, CMETADD #### Unless otherwise noted, all testing performed by [place] [address] CLIA: [id number] Refuge Manager: Maurice Coello M.D. Monocytes #/vol (Bld) 0.7 K/mcL High 0.1-0.6 [facility] Comment on above: Performed By: #### C BCWOD, PT, PTT, DDIMR, EDCTNI, NTPROBNP, CHEM8, LIPASE, CMETADD #### Unless otherwise noted, all testing performed by [place] [address] CLIA: [id number] Refuge Manager: Maurice Coello M.D. Monocytes/100 WBC (Bld) 8.1 % Normal [facility] Comment on above: Performed By: #### C BCWOD, PT, PTT, DDIMR, EDCTNI, NTPROBNP, CHEM8, LIPASE, CMETADD #### Unless otherwise noted, all testing performed by [place] [address] CLIA: [id number] Refuge Manager: Maurice Coello M.D. Neutrophils #/vol (Bld) 5.8 K/mcL Normal 1.2-6.9 [facility] Comment on above: Performed By: #### C BCWOD, PT, PTT, DDIMR, EDCTNI, NTPROBNP, CHEM8, LIPASE, CMETADD #### Unless otherwise noted, all testing performed by [place] [address] CLIA: [id number] Refuge Manager: Maurice Coello M.D. Platelet mean volume Entitic volume (Bld) 8.7 fL Normal 7.0-10.6 [facility] Comment on above: Performed By: #### C BCWOD, PT, PTT, DDIMR, EDCTNI, NTPROBNP, CHEM8, LIPASE, CMETADD #### Unless otherwise noted, all testing performed by [place] [address] CLIA: [id number] Refuge Manager: Maurice Coello M.D. Platelets #/vol (Bld) 274 K/mcL Normal 162-402 [facility] Comment on above: Performed By: #### C BCWOD, PT, PTT, DDIMR, EDCTNI, NTPROBNP, CHEM8, LIPASE, CMETADD #### Unless otherwise noted, all testing performed by [place] [address] CLIA: [id number] Refuge Manager: Maurice Coello M.D. RBC #/vol (Bld) 4.28 M/mcL Normal 3.7-5.0 [facility] Comment on above: Performed By: #### C BCWOD, PT, PTT, DDIMR, EDCTNI, NTPROBNP, CHEM8, LIPASE, CMETADD #### Unless otherwise noted, all testing performed by [place] [address] CLIA: [id number] Refuge Manager: Maurice Coello M.D. Segmented Neut % 68.8 % Normal [facility] Comment on above: Performed By: #### C BCWOD, PT, PTT, DDIMR, EDCTNI, NTPROBNP, CHEM8, LIPASE, CMETADD #### Unless otherwise noted, all testing performed by [place] [address] CLIA: [id number] Refuge Manager: Maurice Coello M.D. WBC #/vol (Bld) 8.5 K/mcL Normal 3.4-10.6 [facility] Comment on above: Performed By: #### C BCWOD, PT, PTT, DDIMR, EDCTNI, NTPROBNP, CHEM8, LIPASE, CMETADD #### Unless otherwise noted, all testing performed by [place] [address] CLIA: [id number] Refuge Manager: Maurice Coello M.D. CHEMG (Basic Metabolic and M g)on 11-28-2018 Calcium mass conc 8.1 mg/dL Low 8.4-10.2 [facility] Comment on above: Performed By: #### C BCWOD, PT, PTT, DDIMR, EDCTNI, NTPROBNP, CHEM8, LIPASE, CMETADD #### Unless otherwise noted, all testing performed by [place] [address] CLIA: [id number] Refuge Manager: Maurice Coello M.D. Chloride molar conc 106 mmol/L Normal 98-[address] [facility] Comment on above: Performed By: #### C BCWOD, PT, PTT, DDIMR, EDCTNI, NTPROBNP, CHEM8, LIPASE, CMETADD #### Unless otherwise noted, all testing performed by [place] [address] CLIA: [id number] Refuge Manager: Maurice Coello M.D. CO2 molar conc 28 mmol/L Normal 21-32 [facility] Comment on above: Performed By: #### C BCWOD, PT, PTT, DDIMR, EDCTNI, NTPROBNP, CHEM8, LIPASE, CMETADD #### Unless otherwise noted, all testing performed by [place] [address] CLIA: [id number] Refuge Manager: Maurice Coello M.D. Creatinine mass conc 1.51 mg/dL High 0.40-1.10 [facility] Comment on above: Performed By: #### C BCWOD, PT, PTT, DDIMR, EDCTNI, NTPROBNP, CHEM8, LIPASE, CMETADD #### Unless otherwise noted, all testing performed by [place] [address] CLIA: [id number] Refuge Manager: Maurice Coello M.D. GFR/1.73 sq M predicted among blacks MDRD vol rate/area (S/P/Bld) 42 mL/min/{1.73_m2} Low >60 [facility] Comment on above: Result Comment: Afri can Kenyan GFR Calc Performed By: #### C BCWOD, PT, PTT, DDIMR, EDCTNI, NTPROBNP, CHEM8, LIPASE, CMETADD #### Unless otherwise noted, all testing performed by [place] [address] CLIA: [id number] Refuge Manager: Maurice Coello M.D. GFR/1.73 sq M predicted among non-blacks MDRD vol rate/area (S/P/Bld) 35 mL/min/{1.73_m2} Low >60 [facility] Comment on above: Result Comment: Non- GFR [...] Unless otherwise noted, all testing performed by [place] [address] CLIA: [id number] Refuge Manager: Maurice Coello M.D. Glucose mass conc 91 mg/dL Normal 70-99 [facility] Comment on above: Result Comment: This test result might be falsely depressed or falsely elevated on samples drawn from patients taking Sulfasalazine and Sulfapyridine. Venipuncture should occur prior to taking either of these drugs. Performed By: #### C BCWOD, PT, PTT, DDIMR, EDCTNI, NTPROBNP, CHEM8, LIPASE, CMETADD #### Unless otherwise noted, all testing performed by [place] [address] CLIA: [id number] Refuge Manager: Maurice Coello M.D. Magnesium mass conc 2.0 mg/dL Normal 1.6-2.[address] [facility] Comment on above: Performed By: #### C BCWOD, PT, PTT, DDIMR, EDCTNI, NTPROBNP, CHEM8, LIPASE, CMETADD #### Unless otherwise noted, all testing performed by [place] [phone] CLIA: [id number] Refuge Manager: Maurice Coello M.D. Potassium molar conc 4.4 mmol/L Normal 3.5-5.1 [facility] Comment on above: Performed By: #### C BCWOD, PT, PTT, DDIMR, EDCTNI, NTPROBNP, CHEM8, LIPASE, CMETADD #### Unless otherwise noted, all testing performed by [place] [address] CLIA: [id number] Refuge Manager: Maurice Coello M.D. Sodium molar conc 137 mmol/L Normal 135-145 [facility] Comment on above: Performed By: #### C BCWOD, PT, PTT, DDIMR, EDCTNI, NTPROBNP, CHEM8, LIPASE, CMETADD #### Unless otherwise noted, all testing performed by [place] [address] CLIA: [id number] Refuge Manager: Maurice Coello M.D. Urea nitrogen mass conc 14 mg/dL Normal 8-25 [facility] Comment on above: Performed By: #### C BCWOD, PT, PTT, DDIMR, EDCTNI, NTPROBNP, CHEM8, LIPASE, CMETADD #### Unless otherwise noted, all testing performed by [place] [address] CLIA: [id number] Refuge Manager: Maurice Coello M.D. Cell Count, Body Fluidon Avni Swift.F. Cloudy Abnormal Clear [facility] Comment on above: Performed By: #### C BCWOD, PT, PTT, DDIMR, EDCTNI, NTPROBNP, CHEM8, LIPASE, CMETADD #### Unless otherwise noted, all testing performed by [place] [address] CLIA: [id number] Refuge Manager: Maurice Coello M.D. Color, Body Fl. Yellow Normal [facility] Comment on above: Performed By: #### C BCWOD, PT, PTT, DDIMR, EDCTNI, NTPROBNP, CHEM8, LIPASE, CMETADD #### Unless otherwise noted, all testing performed by [place] [address] CLIA: [id number] Refuge Manager: Maurice Coello M.D. Lymphocytes/100 WBC (Bld) 7.0 % Normal [facility] Comment on above: Result Comment: Syno vial fld. Lymph% ref. range is <75%. Performed By: #### C BCWOD, PT, PTT, DDIMR, EDCTNI, NTPROBNP, CHEM8, LIPASE, CMETADD #### Unless otherwise noted, all testing performed by [place] [address] CLIA: [id number] Refuge Manager: Maurice Mode, M.D. [place]/Macrophage 26.0 % Normal [facility] Comment on above: Result Comment: Syno vial fld. monocyte/macrophage% ref. range is <70%. Performed By: #### C BCWOD, PT, PTT, DDIMR, EDCTNI, NTPROBNP, CHEM8, LIPASE, CMETADD #### Unless otherwise noted, all testing performed by [place] [phone] CLIA: [id number] Refuge Manager: Maurice Coello M.D. RBC #/vol (Bld) 4014 /mcL Normal [facility] Comment on above: Result Comment: Syno vial fld. RBC ref. range is 0/mcL. Performed By: #### C BCWOD, PT, PTT, DDIMR, EDCTNI, NTPROBNP, CHEM8, LIPASE, CMETADD #### Unless otherwise noted, all testing performed by [place] [phone] CLIA: [id number] Refuge Manager: Maurice Coello M.D. Seg, Body Fl. 67.0 % Normal [facility] Comment on above: Result Comment: Syno vial fld. Seg% ref. range is <25%. Performed By: #### C BCWOD, PT, PTT, DDIMR, EDCTNI, NTPROBNP, CHEM8, LIPASE, CMETADD #### Unless otherwise noted, all testing performed by [place] [address] CLIA: [id number] Refuge Manager: Maurice Coello M.D. Spec. Type, B.F. Synovial Fluid Normal [facility] Comment on above: Performed By: #### C BCWOD, PT, PTT, DDIMR, EDCTNI, NTPROBNP, CHEM8, LIPASE, CMETADD #### Unless otherwise noted, all testing performed by [place] [address] CLIA: [id number] Refuge Manager: Maurice Coello M.D. WBC #/vol (Bld) 62082 /mcL Normal [facility] Comment on above: Result Comment: Syno vial fld. WBC ref. range is 0-200/mcL. Performed By: #### C BCWOD, PT, PTT, DDIMR, EDCTNI, NTPROBNP, CHEM8, LIPASE, CMETADD #### Unless otherwise noted, all testing performed by [place] [address] CLIA: [id number] Refuge Manager: Maurice Coello M.D. Crystals, Syn Fldon 11-28-19 19 Crystal, Intra None Seen Normal None Seen [facility] Comment on above: Performed By: #### C BCWOD, PT, PTT, DDIMR, EDCTNI, NTPROBNP, CHEM8, LIPASE, CMETADD #### Unless otherwise noted, all testing performed by [place] [address] CLIA: [id number] Refuge Manager: Maurice Coello M.D. Crystals, Extra None Seen Normal None Seen [facility] Comment on above: Performed By: #### C BCWOD, PT, PTT, DDIMR, EDCTNI, NTPROBNP, CHEM8, LIPASE, CMETADD #### Unless otherwise noted, all testing performed by [place] [address] CLIA: [id number] Refuge Manager: Maurice Coello M.D. Culture, Acid-Faston 019 Culture, Acid-Fast Test Name: Culture, Acid-Fast Site: Left knee (tka) Culture Status: Final Culture Report: No Acid-Fast Bacillus isolated after 8 weeks. Acid-Fast Smear: No Acid-Fast Bacillus seen on smear. Micro Source: Synovial Fluid Normal [facility] Comment on above: Performed By: #### C BCWOD, PT, PTT, DDIMR, EDCTNI, NTPROBNP, CHEM8, LIPASE, CMETADD #### Unless otherwise noted, all testing performed by [place] [address] CLIA: [id number] Refuge Manager: Maurice Coello M.D. Culture, Anaerobicon 019 Culture, Anaerobic Test Name: Culture, Anaerobic Site: left knee (TKA) Culture Status: Final Culture Report: No anaerobes isolated. Micro Source: Synovial Fluid Normal [facility] Comment on above: Performed By: #### C BCWOD, PT, PTT, DDIMR, EDCTNI, NTPROBNP, CHEM8, LIPASE, CMETADD #### Unless otherwise noted, all testing performed by [place] [address] CLIA: [id number] Refuge Manager: Maurice Coello M.D. Culture, Fungus,Otheron 11-07 Culture, Fungus,Other Test Name: Culture , Fungus,Other Site: left knee (tka) Culture Status: Final Culture Report: No Fungi isolated after 6 weeks. CATERINA Prep: No Fungal Elements Seen Micro Source: Synovial Fluid Normal [facility] Comment on above: Performed By: #### C BCWOD, PT, PTT, DDIMR, EDCTNI, NTPROBNP, CHEM8, LIPASE, CMETADD #### Unless otherwise noted, all testing performed by [place] [address] CLIA: [id number] Refuge Manager: Maurice Coello M.D. Culture,Bacterialon 11-28-19 19 Culture,Bacterial Test Name: Culture,Bacterial Site: left knee (TKA) Culture Status: Final Culture Report: No Growth - Day 5 Gram Stain: Moderate WBC's No Organisms Seen Micro Source: Synovial Fluid Normal [facility] Comment on above: Performed By: #### C BCWOD, PT, PTT, DDIMR, EDCTNI, NTPROBNP, CHEM8, LIPASE, CMETADD #### Unless otherwise noted, all testing performed by [place] [address] CLIA: [id number] Refuge Manager: Maurice Coello M.D. CBC with Diffon 11-27-2018 Basophils #/vol (Bld) 0.1 K/mcL Normal 0-0.2 [facility] Comment on above: Performed By: #### C BCWOD, PT, PTT, DDIMR, EDCTNI, NTPROBNP, CHEM8, LIPASE, CMETADD #### Unless otherwise noted, all testing performed by [place] [address] CLIA: [id number] Refuge Manager: Maurice Coello M.D. Basophils/100 WBC (Bld) 0.8 % Normal [facility] Comment on above: Performed By: #### C BCWOD, PT, PTT, DDIMR, EDCTNI, NTPROBNP, CHEM8, LIPASE, CMETADD #### Unless otherwise noted, all testing performed by [place] [address] CLIA: [id number] Refuge Manager: Maurice Coello M.D. Eosinophils #/vol (Bld) 0.1 K/mcL Normal 0-0.5 [facility] Comment on above: Performed By: #### C BCWOD, PT, PTT, DDIMR, EDCTNI, NTPROBNP, CHEM8, LIPASE, CMETADD #### Unless otherwise noted, all testing performed by [facility] [place] [address] CLIA: [id number] Refuge Manager: Maurice Coello M.D. Eosinophils/100 WBC (Bld) 1.3 % Normal [facility] Comment on above: Performed By: #### C BCWOD, PT, PTT, DDIMR, EDCTNI, NTPROBNP, CHEM8, LIPASE, CMETADD #### Unless otherwise noted, all testing performed by [place] [address] CLIA: [id number] Refuge Manager: Maurice Coello M.D. Erythrocyte distribution width Ratio (RBC) 16.8 % High 10.0-14.4 [facility] Comment on above: Performed By: #### C BCWOD, PT, PTT, DDIMR, EDCTNI, NTPROBNP, CHEM8, LIPASE, CMETADD #### Unless otherwise noted, all testing performed by [place] [address] CLIA: [id number] Refuge Manager: Maurice Coello M.D. Hematocrit Volume Fraction (Bld) 37.1 % Normal 34.4-44.8 [facility] Comment on above: Performed By: #### C BCWOD, PT, PTT, DDIMR, EDCTNI, NTPROBNP, CHEM8, LIPASE, CMETADD #### Unless otherwise noted, all testing performed by [place] [address] CLIA: [id number] Refuge Manager: Maurice Coello M.D. Hemoglobin mass conc (Bld) 11.7 g/dL Normal 11.6-15.4 [facility] Comment on above: Performed By: #### C BCWOD, PT, PTT, DDIMR, EDCTNI, NTPROBNP, CHEM8, LIPASE, CMETADD #### Unless otherwise noted, all testing performed by [place] [address] CLIA: [id number] Refuge Manager: Maurice Coello M.D. Lymphocytes #/vol (Bld) 1.6 K/mcL Normal 1.0-3.7 [facility] Comment on above: Performed By: #### C BCWOD, PT, PTT, DDIMR, EDCTNI, NTPROBNP, CHEM8, LIPASE, CMETADD #### Unless otherwise noted, all testing performed by [place] [address] CLIA: [id number] Refuge Manager: Maurice Coello M.D. Lymphocytes/100 WBC (Bld) 19.2 % Normal [facility] Comment on above: Performed By: #### C BCWOD, PT, PTT, DDIMR, EDCTNI, NTPROBNP, CHEM8, LIPASE, CMETADD #### Unless otherwise noted, all testing performed by [place] [address] CLIA: [id number] Refuge Manager: Maurice Coello M.D. MCH Entitic mass (RBC) 24.2 pg Low 27.9-33.9 [facility] Comment on above: Performed By: #### C BCWOD, PT, PTT, DDIMR, EDCTNI, NTPROBNP, CHEM8, LIPASE, CMETADD #### Unless otherwise noted, all testing performed by [place] [address] CLIA: [id number] Refuge Manager: Maurice Coello M.D. MCHC mass conc (RBC) 31.5 g/dL Low 33.1-35.1 [facility] Comment on above: Performed By: #### C BCWOD, PT, PTT, DDIMR, EDCTNI, NTPROBNP, CHEM8, LIPASE, CMETADD #### Unless otherwise noted, all testing performed by [place] [address] CLIA: [id number] Refuge Manager: Maurice Coello M.D. MCV Entitic volume (RBC) 77.0 fL Low 82.6-98.9 [facility] Comment on above: Performed By: #### C BCWOD, PT, PTT, DDIMR, EDCTNI, NTPROBNP, CHEM8, LIPASE, CMETADD #### Unless otherwise noted, all testing performed by [place] [phone] CLIA: [id number] Refuge Manager: Maurice Coello M.D. Monocytes #/vol (Bld) 0.5 K/mcL Normal 0.1-0.6 [facility] Comment on above: Performed By: #### C BCWOD, PT, PTT, DDIMR, EDCTNI, NTPROBNP, CHEM8, LIPASE, CMETADD #### Unless otherwise noted, all testing performed by [place] [address] CLIA: [id number] Refuge Manager: Maurice Coello M.D. Monocytes/100 WBC (Bld) 6.5 % Normal [facility] Comment on above: Performed By: #### C BCWOD, PT, PTT, DDIMR, EDCTNI, NTPROBNP, CHEM8, LIPASE, CMETADD #### Unless otherwise noted, all testing performed by [place] [address] CLIA: [id number] Refuge Manager: Maurice Coello M.D. Neutrophils #/vol (Bld) 5.9 K/mcL Normal 1.2-6.9 [facility] Comment on above: Performed By: #### C BCWOD, PT, PTT, DDIMR, EDCTNI, NTPROBNP, CHEM8, LIPASE, CMETADD #### Unless otherwise noted, all testing performed by [place] [address] CLIA: [id number] Refuge Manager: Maurice Coello M.D. Platelet mean volume Entitic volume (Bld) 8.5 fL Normal 7.0-10.6 [facility] Comment on above: Performed By: #### C BCWOD, PT, PTT, DDIMR, EDCTNI, NTPROBNP, CHEM8, LIPASE, CMETADD #### Unless otherwise noted, all testing performed by [place] [address] CLIA: [id number] Refuge Manager: Maurice Coello M.D. Platelets #/vol (Bld) 279 K/mcL Normal 162-402 [facility] Comment on above: Performed By: #### C BCWOD, PT, PTT, DDIMR, EDCTNI, NTPROBNP, CHEM8, LIPASE, CMETADD #### Unless otherwise noted, all testing performed by [place] [address] CLIA: [id number] Refuge Manager: Maurice Coello M.D. RBC #/vol (Bld) 4.83 M/mcL Normal 3.7-5.0 [facility] Comment on above: Performed By: #### C BCWOD, PT, PTT, DDIMR, EDCTNI, NTPROBNP, CHEM8, LIPASE, CMETADD #### Unless otherwise noted, all testing performed by [address] [place], [place] [address] CLIA: [id number] Refuge Manager: Maurice Coello M.D. Segmented Neut % 72.2 % Normal [facility] Comment on above: Performed By: #### C BCWOD, PT, PTT, DDIMR, EDCTNI, NTPROBNP, CHEM8, LIPASE, CMETADD #### Unless otherwise noted, all testing performed by [place] [address] CLIA: [id number] Refuge Manager: Maurice Coello M.D. WBC #/vol (Bld) 8.2 K/mcL Normal 3.4-10.6 [facility] Comment on above: Performed By: #### C BCWOD, PT, PTT, DDIMR, EDCTNI, NTPROBNP, CHEM8, LIPASE, CMETADD #### Unless otherwise noted, all testing performed by [place] [address] CLIA: [id number] Refuge Manager: Maurice Coello M.D. CRP, C-Reactive Proteinon Protein mass conc 145.0 mg/L High 0.0-10.0 [facility] Comment on above: Performed By: #### C BCWOD, PT, PTT, DDIMR, EDCTNI, NTPROBNP, CHEM8, LIPASE, CMETADD #### Unless otherwise noted, all testing performed by [place] [address] CLIA: [id number] Refuge Manager: Maurice Coello M.D. Comprehensive Metabolic Pane jett 11-27-2018 Albumin mass conc 3.6 g/dL Normal 3.2-5.2 [facility] Comment on above: Performed By: #### C BCWOD, PT, PTT, DDIMR, EDCTNI, NTPROBNP, CHEM8, LIPASE, CMETADD #### Unless otherwise noted, all testing performed by [place] [address] CLIA: [id number] Refuge Manager: Maurice Coello M.D. ALP enzyme act/vol 102 U/L Normal 40-150 [facility] Comment on above: Performed By: #### C BCWOD, PT, PTT, DDIMR, EDCTNI, NTPROBNP, CHEM8, LIPASE, CMETADD #### Unless otherwise noted, all testing performed by [place] [phone] CLIA: [id number] Refuge Manager: Maurice Coello M.D. ALT enzyme act/vol 21 U/L Normal 14-65 [facility] Comment on above: Result Comment: This test result might be falsely depressed or falsely elevated on samples drawn from patients taking Sulfasalazine and Sulfapyridine. Venipuncture should occur prior to taking either of these drugs. Performed By: #### C BCWOD, PT, PTT, DDIMR, EDCTNI, NTPROBNP, CHEM8, LIPASE, CMETADD #### Unless otherwise noted, all testing performed by [place] [address] CLIA: [id number] Refuge Manager: Maurice Coello M.D. AST enzyme act/vol 18 U/L Normal 0-45 [facility] Comment on above: Result Comment: This test result might be falsely depressed or falsely elevated on samples drawn from patients taking Sulfasalazine and Sulfapyridine. Venipuncture should occur prior to taking either of these drugs. Performed By: #### C BCWOD, PT, PTT, DDIMR, EDCTNI, NTPROBNP, CHEM8, LIPASE, CMETADD #### Unless otherwise noted, all testing performed by [place] [address] CLIA: [id number] Refuge Manager: Maurice Coello M.D. Bilirubin mass conc 0.3 mg/dL Normal 0.3-1.[address] [facility] Comment on above: Performed By: #### C BCWOD, PT, PTT, DDIMR, EDCTNI, NTPROBNP, CHEM8, LIPASE, CMETADD #### Unless otherwise noted, all testing performed by [place] [address] CLIA: [id number] Refuge Manager: Maurice Coello M.D. Calcium mass conc 8.7 mg/dL Normal 8.4-10.2 [facility] Comment on above: Performed By: #### C BCWOD, PT, PTT, DDIMR, EDCTNI, NTPROBNP, CHEM8, LIPASE, CMETADD #### Unless otherwise noted, all testing performed by [place] [address] CLIA: [id number] Refuge Manager: Maurice Coello M.D. Chloride molar conc 105 mmol/L Normal 98-[address] [facility] Comment on above: Performed By: #### C BCWOD, PT, PTT, DDIMR, EDCTNI, NTPROBNP, CHEM8, LIPASE, CMETADD #### Unless otherwise noted, all testing performed by [place] [address] CLIA: [id number] Refuge Manager: Maurice Coello M.D. CO2 molar conc 27 mmol/L Normal 21-32 [facility] Comment on above: Performed By: #### C BCWOD, PT, PTT, DDIMR, EDCTNI, NTPROBNP, CHEM8, LIPASE, CMETADD #### Unless otherwise noted, all testing performed by [place] [address] CLIA: [id number] Refuge Manager: Maurice Coello M.D. Creatinine mass conc 1.53 mg/dL High 0.40-1.10 [facility] Comment on above: Performed By: #### C BCWOD, PT, PTT, DDIMR, EDCTNI, NTPROBNP, CHEM8, LIPASE, CMETADD #### Unless otherwise noted, all testing performed by [place] [address] CLIA: [id number] Refuge Manager: Maurice Coello M.D. GFR/1.73 sq M predicted among blacks MDRD vol rate/area (S/P/Bld) 42 mL/min/{1.73_m2} Low >60 [facility] Comment on above: Result Comment: Afri can Ken[place] GFR Calc Performed By: #### C BCWOD, PT, PTT, DDIMR, EDCTNI, NTPROBNP, CHEM8, LIPASE, CMETADD #### Unless otherwise noted, all testing performed by [place] [address] CLIA: [id number] Refuge Manager: Maurice Coello M.D. GFR/1.73 sq M predicted among non-blacks MDRD vol rate/area (S/P/Bld) 35 mL/min/{1.73_m2} Low >60 [facility] Comment on above: Result Comment: Non- GFR [...] Unless otherwise noted, all testing performed by [place] [address] CLIA: [id number] Refuge Manager: Maurice Coello M.D. Glucose mass conc 96 mg/dL Normal 70-99 [facility] Comment on above: Result Comment: This test result might be falsely depressed or falsely elevated on samples drawn from patients taking Sulfasalazine and Sulfapyridine. Venipuncture should occur prior to taking either of these drugs. Performed By: #### C BCWOD, PT, PTT, DDIMR, EDCTNI, NTPROBNP, CHEM8, LIPASE, CMETADD #### Unless otherwise noted, all testing performed by [place] [phone] CLIA: [id number] Refuge Manager: Maurice Coello M.D. Potassium molar conc 3.9 mmol/L Normal 3.5-5.1 [facility] Comment on above: Performed By: #### C BCWOD, PT, PTT, DDIMR, EDCTNI, NTPROBNP, CHEM8, LIPASE, CMETADD #### Unless otherwise noted, all testing performed by [place] [address] CLIA: [id number] Refuge Manager: Maurice Coello M.D. Protein mass conc 7.9 g/dL Normal 6.0-8.0 [facility] Comment on above: Performed By: #### C BCWOD, PT, PTT, DDIMR, EDCTNI, NTPROBNP, CHEM8, LIPASE, CMETADD #### Unless otherwise noted, all testing performed by [place] [address] CLIA: [id number] Refuge Manager: Maurice Coello M.D. Sodium molar conc 139 mmol/L Normal 135-145 [facility] Comment on above: Performed By: #### C BCWOD, PT, PTT, DDIMR, EDCTNI, NTPROBNP, CHEM8, LIPASE, CMETADD #### Unless otherwise noted, all testing performed by [place] [address] CLIA: [id number] Refuge Manager: Maurice Coello M.D. Urea nitrogen mass conc 13 mg/dL Normal 8-25 [facility] Comment on above: Performed By: #### C BCWOD, PT, PTT, DDIMR, EDCTNI, NTPROBNP, CHEM8, LIPASE, CMETADD #### Unless otherwise noted, all testing performed by [place] [address] CLIA: [id number] Refuge Manager: Maurice Coello M.D. D-Dimeron 11-27-2018 D-Dimer 1.18 mcg/ml (FEU) High < .5 [facility] Comment on above: Result Comment: This test is intended for use in conjunction with a clinical pretest probability (PTP) assessment model to exclude pulmonary embolism (PE) and deep vein thrombosis (DVT) in outpatients suspected of PE or DVT. Performed By: #### C BCWOD, PT, PTT, DDIMR, EDCTNI, NTPROBNP, CHEM8, LIPASE, CMETADD #### Unless otherwise noted, all testing performed by [place] [address] CLIA: [id number] Refuge Manager: Maurice Coello M.D. KNEE W/ONE OBLIQUEon 019 KNEE W/ONE OBLIQUE Final Report Accession No: [id number] Performed: Nov 27 2018 7:33PM Examination: [...] complications. Interpreting Physician: MATIAS ADLER M.D. Trans: [id number] : cc: Normal [facility] Lactic Acidon 11-27-2018 Lactate molar conc 0.9 mmol/L Normal 0.6-2.0 [facility] Comment on above: Performed By: #### C BCWOD, PT, PTT, DDIMR, EDCTNI, NTPROBNP, CHEM8, LIPASE, CMETADD #### Unless otherwise noted, all testing performed by [place] [address] CLIA: [id number] Refuge Manager: Maurice Coello M.D. Sed Rateon 11-27-2018 Sed Rate 53 MM/hr. High 0-20 [facility] Comment on above: Performed By: #### C BCWOD, PT, PTT, DDIMR, EDCTNI, NTPROBNP, CHEM8, LIPASE, CMETADD #### Unless otherwise noted, all testing performed by [place] [address] CLIA: [id number] Refuge Manager: Maurice Coello M.D. US EXTREMITY NON-VASCULAR LM ITEDon 10-10-2018 US EXTREMITY NON-VASCULAR LMITED Final Report Accession No: [id number] Performed: Oct 10 2018 12:32PM Examination: [...] DAY D.O. Trans: dcarr : cc: Normal [facility] Blood Gas, Arterialon 2017 Aa Ratio 77.0 % Normal [facility] Comment on above: Performed By: #### C BCWOD, PT, PTT, DDIMR, EDCTNI, NTPROBNP, CHEM8, LIPASE, CMETADD #### Unless otherwise noted, all testing performed by [place] [address] CLIA: [id number] Refuge Manager: Maurice Coello M.D. KbV9bzyojgin 21.5 mm Hg Normal [facility] Comment on above: Performed By: #### C BCWOD, PT, PTT, DDIMR, EDCTNI, NTPROBNP, CHEM8, LIPASE, CMETADD #### Unless otherwise noted, all testing performed by [place] [address] CLIA: [id number] Refuge Manager: Maurice Coello M.D. Allen Test N/A Normal [facility] Comment on above: Performed By: #### C BCWOD, PT, PTT, DDIMR, EDCTNI, NTPROBNP, CHEM8, LIPASE, CMETADD #### Unless otherwise noted, all testing performed by [place] [address] CLIA: [id number] Refuge Manager: Maurice Mode, M.D. Base Excess 1.2 mmol/L Normal -2-2 [facility] Comment on above: Performed By: #### C BCWOD, PT, PTT, DDIMR, EDCTNI, NTPROBNP, CHEM8, LIPASE, CMETADD #### Unless otherwise noted, all testing performed by [place] [address] CLIA: [id number] Refuge Manager: Maurice Coello M.D. Blood Gas Instrument ;ICU Normal [facility] Comment on above: Performed By: #### C BCWOD, PT, PTT, DDIMR, EDCTNI, NTPROBNP, CHEM8, LIPASE, CMETADD #### Unless otherwise noted, all testing performed by [place] [address] CLIA: [id number] Refuge Manager: Maurice Coello M.D. Carboxyhemoglobin 1.2 % Normal [facility] Comment on above: Result Comment: Subu rban Non-Smoker <1.5% of total Hgb Smoker 1.5 - 5.0 % of total Hgb Heavy Smoker 5.0 - 9.0 % of total Hgb Performed By: #### C BCWOD, PT, PTT, DDIMR, EDCTNI, NTPROBNP, CHEM8, LIPASE, CMETADD #### Unless otherwise noted, all testing performed by [place] [address] CLIA: [id number] Refuge Manager: Maurice Coello M.D. DeOxyhemoglobin (HHB) 5.5 % High 0.0-5.0 [facility] Comment on above: Performed By: #### C BCWOD, PT, PTT, DDIMR, EDCTNI, NTPROBNP, CHEM8, LIPASE, CMETADD #### Unless otherwise noted, all testing performed by [facility] [place] [address] CLIA: [id number] Refuge Manager: Maurice Coello M.D. Drawn By (Bld Gas) pdb Normal [facility] Comment on above: Performed By: #### C BCWOD, PT, PTT, DDIMR, EDCTNI, NTPROBNP, CHEM8, LIPASE, CMETADD #### Unless otherwise noted, all testing performed by [place] [address] CLIA: [id number] Refuge Manager: Maurice Coello M.D. FIO2 21.0 % Normal 21-100 [facility] Comment on above: Performed By: #### C BCWOD, PT, PTT, DDIMR, EDCTNI, NTPROBNP, CHEM8, LIPASE, CMETADD #### Unless otherwise noted, all testing performed by [place] [address] CLIA: [id number] Refuge Manager: Maurice Coello M.D. HCO3 molar conc (Bld) 26.6 mmol/L High 22-26 [facility] Comment on above: Performed By: #### C BCWOD, PT, PTT, DDIMR, EDCTNI, NTPROBNP, CHEM8, LIPASE, CMETADD #### Unless otherwise noted, all testing performed by [place] [address] CLIA: [id number] Refuge Manager: Maurice Coello M.D. Hematocrit Volume Fraction (Bld) 37.9 % Normal 36-46 [facility] Comment on above: Performed By: #### C BCWOD, PT, PTT, DDIMR, EDCTNI, NTPROBNP, CHEM8, LIPASE, CMETADD #### Unless otherwise noted, all testing performed by [place] [address] CLIA: [id number] Refuge Manager: Maurice Coello M.D. Hemoglobin mass conc (Bld) 94.4 % Normal 92-99 [facility] Comment on above: Performed By: #### C BCWOD, PT, PTT, DDIMR, EDCTNI, NTPROBNP, CHEM8, LIPASE, CMETADD #### Unless otherwise noted, all testing performed by [place] [address] CLIA: [id number] Refuge Manager: Maurice Coello M.D. Hemoglobin mass conc (Bld) 12.4 g/dL Normal 12.0-16.0 [facility] Comment on above: Performed By: #### C BCWOD, PT, PTT, DDIMR, EDCTNI, NTPROBNP, CHEM8, LIPASE, CMETADD #### Unless otherwise noted, all testing performed by [place] [address] CLIA: [id number] Refuge Manager: Maurice Coello M.D. Hemoglobin mass conc (Bld) 92.2 % Normal 92-99 [facility] Comment on above: Performed By: #### C BCWOD, PT, PTT, DDIMR, EDCTNI, NTPROBNP, CHEM8, LIPASE, CMETADD #### Unless otherwise noted, all testing performed by [place] [address] CLIA: [id number] Refuge Manager: Maurice Coello M.D. Methemoglobin 1.1 % Normal < 2.0 [facility] Comment on above: Performed By: #### C BCWOD, PT, PTT, DDIMR, EDCTNI, NTPROBNP, CHEM8, LIPASE, CMETADD #### Unless otherwise noted, all testing performed by [place] [address] CLIA: [id number] Refuge Manager: Maurice Coello M.D. O2 Device Room Air Normal [facility] Comment on above: Performed By: #### C BCWOD, PT, PTT, DDIMR, EDCTNI, NTPROBNP, CHEM8, LIPASE, CMETADD #### Unless otherwise noted, all testing performed by [place] [address] CLIA: [id number] Refuge Manager: Maurice Coello M.D. O2CT 7.2 mmol/L Normal [facility] Comment on above: Performed By: #### C BCWOD, PT, PTT, DDIMR, EDCTNI, NTPROBNP, CHEM8, LIPASE, CMETADD #### Unless otherwise noted, all testing performed by [place] [address] CLIA: [id number] Refuge Manager: Maurice Coello M.D. Oxygen ppres (Bld) 71.8 mm Hg Low 80-100 [facility] Comment on above: Performed By: #### C BCWOD, PT, PTT, DDIMR, EDCTNI, NTPROBNP, CHEM8, LIPASE, CMETADD #### Unless otherwise noted, all testing performed by [place] [address] CLIA: [id number] Refuge Manager: Maurice Coello M.D. PCO2 44.1 mm Hg Normal 35-45 [facility] Comment on above: Performed By: #### C BCWOD, PT, PTT, DDIMR, EDCTNI, NTPROBNP, CHEM8, LIPASE, CMETADD #### Unless otherwise noted, all testing performed by [place] [address] CLIA: [id number] Refuge Manager: Maurice Coello M.D. pCO2 (temp conv.) 44.1 mm Hg Normal 35.0-45.0 [facility] Comment on above: Performed By: #### C BCWOD, PT, PTT, DDIMR, EDCTNI, NTPROBNP, CHEM8, LIPASE, CMETADD #### Unless otherwise noted, all testing performed by [place] [address] CLIA: [id number] Refuge Manager: Maurice Coello M.D. pH (Bld) 7.389 [pH] Normal 7.350-7.450 [facility] Comment on above: Performed By: #### C BCWOD, PT, PTT, DDIMR, EDCTNI, NTPROBNP, CHEM8, LIPASE, CMETADD #### Unless otherwise noted, all testing performed by [place] [address] CLIA: [id number] Refuge Manager: Maurice Coello M.D. Site (Bld Gas) RTBRACH [facility] Comment on above: Performed By: #### C BCWOD, PT, PTT, DDIMR, EDCTNI, NTPROBNP, CHEM8, LIPASE, CMETADD #### Unless otherwise noted, all testing performed by [place] [address] CLIA: [id number] Refuge Manager: Maurice Coello M.D. 25-Hydroxy D Totalon 08-27-2 018 25-Hydroxy D Total 52 ng/mL Normal 30-100 [facility] Comment on above: Result Comment: Plea note that Fluorescein which is used in [...] Unless otherwise noted, all testing performed by [place] [address] CLIA: [id number] Refuge Manager: Maurice Coello M.D. Albuminon 07-02-2018 Albumin mass conc 3.5 g/dL Normal 3.2-5.2 [facility] Comment on above: Performed By: #### C BCWOD, PT, PTT, DDIMR, EDCTNI, NTPROBNP, CHEM8, LIPASE, CMETADD #### Unless otherwise noted, all testing performed by [place] [address] CLIA: [id number] Refuge Manager: Maurice Coello M.D. Albumin mass conc 3.5 g/dL Invalid Interpretation Code 3.2 - 5.2 g/dL [facility] BUN and Creatinineon 018 Creatinine mass conc 1.48 mg/dL High 0.40-1.10 [facility] Comment on above: Performed By: #### C BCWOD, PT, PTT, DDIMR, EDCTNI, NTPROBNP, CHEM8, LIPASE, CMETADD #### Unless otherwise noted, all testing performed by [place] [address] CLIA: [id number] Refuge Manager: Maurice Coello M.D. GFR/1.73 sq M predicted among blacks MDRD vol rate/area (S/P/Bld) 43 mL/min/{1.73_m2} Low >60 [facility] Comment on above: Result Comment: Afri can Kenyan GFR Calc Performed By: #### C BCWOD, PT, PTT, DDIMR, EDCTNI, NTPROBNP, CHEM8, LIPASE, CMETADD #### Unless otherwise noted, all testing performed by [place] [address] CLIA: [id number] Refuge Manager: Maurice Coello M.D. GFR/1.73 sq M predicted among non-blacks MDRD vol rate/area (S/P/Bld) 36 mL/min/{1.73_m2} Low >60 [facility] Comment on above: Result Comment: Non- GFR [...] Unless otherwise noted, all testing performed by [place] [address] CLIA: [id number] Refuge Manager: Maurice Coello M.D. Urea nitrogen mass conc 14 mg/dL Normal 8-25 [facility] Comment on above: Performed By: #### C BCWOD, PT, PTT, DDIMR, EDCTNI, NTPROBNP, CHEM8, LIPASE, CMETADD #### Unless otherwise noted, all testing performed by [place] [id number] CLIA: [id number] Refuge Manager: Maurice Coello M.D. Creatinine mass conc 1.48 mg/dL High 0.4 - 1 .1 mg/dL [facility] GFR/1.73 sq M predicted among blacks MDRD vol rate/area (S/P/Bld) 43 mL/min/{1.73_m2} Low >60 ml/min/1.73sq .m [facility] Comment on above: GFR Calc GFR/1.73 sq M predicted among non-blacks MDRD vol rate/area (S/P/Bld) 36 mL/min/{1.73_m2} Low >60 ml/min/1.73sq .[facility] Comment on above: Non- GFR Calc eGFR [...] Invalid Interpretation Code 8 - 25 mg/dL [facility] Calciumon 07-02-2018 Calcium mass conc 9.0 mg/dL Normal 8.4-10.2 [facility] Comment on above: Performed By: #### C BCWOD, PT, PTT, DDIMR, EDCTNI, NTPROBNP, CHEM8, LIPASE, CMETADD #### Unless otherwise noted, all testing performed by [facility] [place] [address] [place], [place] [address] CLIA: [id number] Refuge Manager: Maurice Coello M.D. Calcium Levelon 07-02-2018 Calcium mass conc 9.0 mg/dL Invalid Interpretation Code 8.4 - 10.2 mg/dL [facility] Electrolyte Panelon 07-02-20 18 Chloride molar conc 100 mmol/L Invalid Interpretation Code 98 - 108 mmol/L [facility] CO2 molar conc 28 mmol/L Invalid Interpretation Code 21 - 32 mmol/L [facility] Potassium molar conc 4.7 mmol/L Invalid Interpretation Code 3.5 - 5.1 mmol/L [facility] Sodium molar conc 133 mmol/L Low 135 - 145 mmol/L [facility] Electrolyteson 07-02-2018 Chloride molar conc 100 mmol/L Normal 98-[address] [facility] Comment on above: Performed By: #### C BCWOD, PT, PTT, DDIMR, EDCTNI, NTPROBNP, CHEM8, LIPASE, CMETADD #### Unless otherwise noted, all testing performed by [place] [address] CLIA: [id number] Refuge Manager: Maurice Coello M.D. CO2 molar conc 28 mmol/L Normal 21-32 [facility] Comment on above: Performed By: #### C BCWOD, PT, PTT, DDIMR, EDCTNI, NTPROBNP, CHEM8, LIPASE, CMETADD #### Unless otherwise noted, all testing performed by [place] [address] CLIA: [id number] Refuge Manager: Maurice Coello M.D. Potassium molar conc 4.7 mmol/L Normal 3.5-5.1 [facility] Comment on above: Performed By: #### C BCWOD, PT, PTT, DDIMR, EDCTNI, NTPROBNP, CHEM8, LIPASE, CMETADD #### Unless otherwise noted, all testing performed by [place] [address] CLIA: [id number] Refuge Manager: Maurice Coello M.D. Sodium molar conc 133 mmol/L Low 135-145 [facility] Comment on above: Performed By: #### C BCWOD, PT, PTT, DDIMR, EDCTNI, NTPROBNP, CHEM8, LIPASE, CMETADD #### Unless otherwise noted, all testing performed by [place] [address] CLIA: [id number] Refuge Manager: Maurice Coello M.D. Hemoglobin and Hematocriton 07-02-2018 Hematocrit Auto Volume Fraction (Bld) 36.3 % Invalid Interpretation Code 34.4 - 44.8 % [facility] Hemoglobin mass conc (Bld) 11.7 g/dL Invalid Interpretation Code 11.6 - 15.4 g/dL [facility] Hgb and Hcton 07-02-2018 Hematocrit Volume Fraction (Bld) 36.3 % Normal 34.4-44.8 [facility] Comment on above: Performed By: #### C BCWOD, PT, PTT, DDIMR, EDCTNI, NTPROBNP, CHEM8, LIPASE, CMETADD #### Unless otherwise noted, all testing performed by [place] [address] CLIA: [id number] Refuge Manager: Maurice Coello M.D. Hemoglobin mass conc (Bld) 11.7 g/dL Normal 11.6-15.4 [facility] Comment on above: Performed By: #### C BCWOD, PT, PTT, DDIMR, EDCTNI, NTPROBNP, CHEM8, LIPASE, CMETADD #### Unless otherwise noted, all testing performed by [place] [address] CLIA: [id number] Refuge Manager: Maurice Coello M.D. Otheron 07-02-2018 Interpretation and review of laboratory results Abnormal Invalid Interpretation Code [facility] Parathyroid Hormoneon 2017 Parathyroid Hormone 107.5 pg/mL High 18.4-80.1 [facility] Comment on above: Result Comment: Samp les from patients routinely receiving high dose biotin therapy may show falsely depressed results. Additional information may be required for diagnosis. Performed By: #### C BCWOD, PT, PTT, DDIMR, EDCTNI, NTPROBNP, CHEM8, LIPASE, CMETADD #### Unless otherwise noted, all testing performed by [place] [address] CLIA: [id number] Refuge Manager: Maurice Coello M.D. Interpretation and review of laboratory results Abnormal Invalid Interpretation Code [facility] Parathyroid Hormone 107.5 pg/mL High 18.4 - 8 0.1 pg/mL [facility] Comment on above: Samples from patient s routinely receiving high dose biotin therapy may show falsely depressed results. Additional information may be required for diagnosis. Phosphoruson 07-02-2018 Phosphate mass conc 3.1 mg/dL Normal 2.7-4.[address] [facility] Comment on above: Performed By: #### C BCWOD, PT, PTT, DDIMR, EDCTNI, NTPROBNP, CHEM8, LIPASE, CMETADD #### Unless otherwise noted, all testing performed by [place] [address] CLIA: [id number] Refuge Manager: Maurice Coello M.D. Phosphate mass conc 3.1 mg/dL Invalid Interpretation Code 2.7 - 4.5 mg/dL [facility] Protein Panel, Urineon 07-02 Creatinine, Urine Random 83.50 mg/dL Normal [facility] Comment on above: Result Comment: No e stablished reference range. Performed By: #### C BCWOD, PT, PTT, DDIMR, EDCTNI, NTPROBNP, CHEM8, LIPASE, CMETADD #### Unless otherwise noted, all testing performed by [place] [address] CLIA: [id number] Refuge Manager: Maurice Coello M.D. Protein Creatinine Ratio 0.50 High 0.0-0.2 [facility] Comment on above: Performed By: #### C BCWOD, PT, PTT, DDIMR, EDCTNI, NTPROBNP, CHEM8, LIPASE, CMETADD #### Unless otherwise noted, all testing performed by [place] [address] CLIA: [id number] Refuge Manager: Maurice Coello M.D. Protein mass conc (U) 42.0 mg/dL Normal [facility] Comment on above: Performed By: #### C BCWOD, PT, PTT, DDIMR, EDCTNI, NTPROBNP, CHEM8, LIPASE, CMETADD #### Unless otherwise noted, all testing performed by [place] [address] CLIA: [id number] Refuge Manager: Maurice Coello M.D. Creatinine, Urine Random 83.50 mg/dL Invalid Interpretation Code [facility] Comment on above: No established refer ence range. Interpretation and review of laboratory results Abnormal Invalid Interpretation Code [facility] Protein, Urine Random 42.0 mg/dL Invalid Interpretation Code [facility] Protein/Creatinine Ratio, Urine 0.50 High [facility] TSHon 07-02-2018 Thyrotropin Qn 2.08 uIU/mL Normal 0.320-5.000 [facility] Comment on above: Result Comment: Samp les from patients routinely receiving high dose biotin therapy (100-300 mg/day) may show falsely decreased results. Please correlate clinically. Performed By: #### C BCWOD, PT, PTT, DDIMR, EDCTNI, NTPROBNP, CHEM8, LIPASE, CMETADD #### Unless otherwise noted, all testing performed by [place] [address] CLIA: [id number] Refuge Manager: Maurice Coello M.D. Thyrotropin Qn 2.08 m[IU]/L Invalid Interpretation Code [facility] Comment on above: Samples from patient s routinely receiving high dose biotin therapy (100-300 mg/day) may show falsely decreased results. Please correlate clinically. Thryroglobulin Tumor Mrkron 07-02-2018 Thyroglobulin Ab Qn 1.6 [IU]/mL Normal 0.0-3.9 [facility] Comment on above: Result Comment: Valu es obtained from different assay methods or kits may be different and cannot be used intergchangeably. Assay performed by [employer]. Test Performed by [facility] [employer] [address] [place] [address] Performed By: #### C BCWOD, PT, PTT, DDIMR, EDCTNI, NTPROBNP, CHEM8, LIPASE, CMETADD #### Unless otherwise noted, all testing performed by [place] [address] CLIA: [id number] Refuge Manager: Maurice Coello M.D. Thyroglobulin, Serum < 0.1 Normal <0.1 [facility] Comment on above: Result Comment: Refe rence range applies to athyrotic individuals. Patients with an intact thyroid are expected to have levels less than or equal to 35 ng/ml. Assay performed by Kellen Covington [employer] Performed By: #### C BCWOD, PT, PTT, DDIMR, EDCTNI, NTPROBNP, CHEM8, LIPASE, CMETADD #### Unless otherwise noted, all testing performed by [place] [address] CLIA: [id number] Refuge Manager: Maurice Coello M.D. Vitamin D, Total, 25-OHon Vitamin D, 25-Hydroxy, Total 52 ng/mL Invalid Interpretation Code 30 - 100 ng/mL [facility] Comment on above: Please note that [...] mg/dL Normal 8.4-10.2 [facility] Comment on above: Performed By: #### C BCWOD, PT, PTT, DDIMR, EDCTNI, NTPROBNP, CHEM8, LIPASE, CMETADD #### Unless otherwise noted, all testing performed by [place] [address] CLIA: [id number] Refuge Manager: Maurice Coello M.D. Chloride molar conc 99 mmol/L Normal 98-[address] [facility] Comment on above: Performed By: #### C BCWOD, PT, PTT, DDIMR, EDCTNI, NTPROBNP, CHEM8, LIPASE, CMETADD #### Unless otherwise noted, all testing performed by [place] [address] CLIA: [id number] Refuge Manager: Maurice Coello M.D. CO2 molar conc 29 mmol/L Normal 21-32 [facility] Comment on above: Performed By: #### C BCWOD, PT, PTT, DDIMR, EDCTNI, NTPROBNP, CHEM8, LIPASE, CMETADD #### Unless otherwise noted, all testing performed by [place] [address] CLIA: [id number] Refuge Manager: Maurice Coello M.D. Creatinine mass conc 1.50 mg/dL High 0.40-1.10 [facility] Comment on above: Performed By: #### C BCWOD, PT, PTT, DDIMR, EDCTNI, NTPROBNP, CHEM8, LIPASE, CMETADD #### Unless otherwise noted, all testing performed by [place] [address] CLIA: [id number] Refuge Manager: Maurice Coello M.D. GFR/1.73 sq M predicted among blacks MDRD vol rate/area (S/P/Bld) 43 mL/min/{1.73_m2} Low >60 [facility] Comment on above: Result Comment: Afri can [place] GFR Calc Performed By: #### C BCWOD, PT, PTT, DDIMR, EDCTNI, NTPROBNP, CHEM8, LIPASE, CMETADD #### Unless otherwise noted, all testing performed by [place] [address] CLIA: [id number] Refuge Manager: Maurice Coello M.D. GFR/1.73 sq M predicted among non-blacks MDRD vol rate/area (S/P/Bld) 35 mL/min/{1.73_m2} Low >60 [facility] Comment on above: Result Comment: Non- GFR [...] Unless otherwise noted, all testing performed by [place] [address] CLIA: [id number] Refuge Manager: Maurice Coello M.D. Glucose mass conc 108 mg/dL High 70-99 [facility] Comment on above: Result Comment: This test result might be falsely depressed or falsely elevated on samples drawn from patients taking Sulfasalazine and Sulfapyridine. Venipuncture should occur prior to taking either of these drugs. Performed By: #### C BCWOD, PT, PTT, DDIMR, EDCTNI, NTPROBNP, CHEM8, LIPASE, CMETADD #### Unless otherwise noted, all testing performed by [place] [phone] CLIA: [id number] Refuge Manager: Maurice Coello M.D. Potassium molar conc 5.2 mmol/L High 3.5-5.1 [facility] Comment on above: Performed By: #### C BCWOD, PT, PTT, DDIMR, EDCTNI, NTPROBNP, CHEM8, LIPASE, CMETADD #### Unless otherwise noted, all testing performed by [place] [address] CLIA: [id number] Refuge Manager: Maurice Coello M.D. Sodium molar conc 133 mmol/L Low 135-145 [facility] Comment on above: Performed By: #### C BCWOD, PT, PTT, DDIMR, EDCTNI, NTPROBNP, CHEM8, LIPASE, CMETADD #### Unless otherwise noted, all testing performed by [place] [address] CLIA: [id number] Refuge Manager: Maurice Coello M.D. Urea nitrogen mass conc 13 mg/dL Normal 8-25 [facility] Comment on above: Performed By: #### C BCWOD, PT, PTT, DDIMR, EDCTNI, NTPROBNP, CHEM8, LIPASE, CMETADD #### Unless otherwise noted, all testing performed by [place] [address] CLIA: [id number] Refuge Manager: Maurice Coello M.D. CBC with Diffon 06-21-2018 Basophils #/vol (Bld) 0.1 K/mcL Normal 0-0.2 [facility] Comment on above: Performed By: #### C BCWOD, PT, PTT, DDIMR, EDCTNI, NTPROBNP, CHEM8, LIPASE, CMETADD #### Unless otherwise noted, all testing performed by [place] [address] CLIA: [id number] Refuge Manager: Maurice Coello M.D. Basophils/100 WBC (Bld) 1.0 % Normal [facility] Comment on above: Performed By: #### C BCWOD, PT, PTT, DDIMR, EDCTNI, NTPROBNP, CHEM8, LIPASE, CMETADD #### Unless otherwise noted, all testing performed by [place] [address] CLIA: [id number] Refuge Manager: Maurice Coello M.D. Eosinophils #/vol (Bld) 0.2 K/mcL Normal 0-0.5 [facility] Comment on above: Performed By: #### C BCWOD, PT, PTT, DDIMR, EDCTNI, NTPROBNP, CHEM8, LIPASE, CMETADD #### Unless otherwise noted, all testing performed by [place] [address] CLIA: [id number] Refuge Manager: Maurice Coello M.D. Eosinophils/100 WBC (Bld) 2.3 % Normal [facility] Comment on above: Performed By: #### C BCWOD, PT, PTT, DDIMR, EDCTNI, NTPROBNP, CHEM8, LIPASE, CMETADD #### Unless otherwise noted, all testing performed by [place] [address] CLIA: [id number] Refuge Manager: Maurice Coello M.D. Erythrocyte distribution width Ratio (RBC) 15.4 % High 10.0-14.4 [facility] Comment on above: Performed By: #### C BCWOD, PT, PTT, DDIMR, EDCTNI, NTPROBNP, CHEM8, LIPASE, CMETADD #### Unless otherwise noted, all testing performed by [place] [address] CLIA: [id number] Refuge Manager: Maurice Coello M.D. Hematocrit Volume Fraction (Bld) 33.9 % Low 34.4-44.8 [facility] Comment on above: Performed By: #### C BCWOD, PT, PTT, DDIMR, EDCTNI, NTPROBNP, CHEM8, LIPASE, CMETADD #### Unless otherwise noted, all testing performed by [place] [address] CLIA: [id number] Refuge Manager: Maurice Coello M.D. Hemoglobin mass conc (Bld) 10.7 g/dL Low 11.6-15.4 [facility] Comment on above: Performed By: #### C BCWOD, PT, PTT, DDIMR, EDCTNI, NTPROBNP, CHEM8, LIPASE, CMETADD #### Unless otherwise noted, all testing performed by [place] [address] CLIA: [id number] Refuge Manager: Maurice Coello M.D. Lymphocytes #/vol (Bld) 1.6 K/mcL Normal 1.0-3.7 [facility] Comment on above: Performed By: #### C BCWOD, PT, PTT, DDIMR, EDCTNI, NTPROBNP, CHEM8, LIPASE, CMETADD #### Unless otherwise noted, all testing performed by [place] [address] CLIA: [id number] Refuge Manager: Maurcie Coello M.D. Lymphocytes/100 WBC (Bld) 24.6 % Normal [facility] Comment on above: Performed By: #### C BCWOD, PT, PTT, DDIMR, EDCTNI, NTPROBNP, CHEM8, LIPASE, CMETADD #### Unless otherwise noted, all testing performed by [place] [address] CLIA: [id number] Refuge Manager: Maurice Coello M.D. MCH Entitic mass (RBC) 25.4 pg Low 27.9-33.9 [facility] Comment on above: Performed By: #### C BCWOD, PT, PTT, DDIMR, EDCTNI, NTPROBNP, CHEM8, LIPASE, CMETADD #### Unless otherwise noted, all testing performed by [place] [address] CLIA: [id number] Refuge Manager: Maurice Coello M.D. MCHC mass conc (RBC) 31.5 g/dL Low 33.1-35.1 [facility] Comment on above: Performed By: #### C BCWOD, PT, PTT, DDIMR, EDCTNI, NTPROBNP, CHEM8, LIPASE, CMETADD #### Unless otherwise noted, all testing performed by [place] [address] CLIA: [id number] Refuge Manager: Maurice Coello M.D. MCV Entitic volume (RBC) 80.7 fL Low 82.6-98.9 [facility] Comment on above: Performed By: #### C BCWOD, PT, PTT, DDIMR, EDCTNI, NTPROBNP, CHEM8, LIPASE, CMETADD #### Unless otherwise noted, all testing performed by [place] [address] CLIA: [id number] Refuge Manager: Maurice Coello M.D. Monocytes #/vol (Bld) 0.6 K/mcL Normal 0.1-0.6 [facility] Comment on above: Performed By: #### C BCWOD, PT, PTT, DDIMR, EDCTNI, NTPROBNP, CHEM8, LIPASE, CMETADD #### Unless otherwise noted, all testing performed by [place] [address] CLIA: [id number] Refuge Manager: Maurice Coello M.D. Monocytes/100 WBC (Bld) 8.8 % Normal [facility] Comment on above: Performed By: #### C BCWOD, PT, PTT, DDIMR, EDCTNI, NTPROBNP, CHEM8, LIPASE, CMETADD #### Unless otherwise noted, all testing performed by [place] [address] CLIA: [id number] Refuge Manager: Maurice Coello M.D. Neutrophils #/vol (Bld) 4.2 K/mcL Normal 1.2-6.9 [facility] Comment on above: Performed By: #### C BCWOD, PT, PTT, DDIMR, EDCTNI, NTPROBNP, CHEM8, LIPASE, CMETADD #### Unless otherwise noted, all testing performed by [address] [address] CLIA: [id number] Refuge Manager: Maurice Coello M.D. Platelet mean volume Entitic volume (Bld) 8.1 fL Normal 7.0-10.6 [facility] Comment on above: Performed By: #### C BCWOD, PT, PTT, DDIMR, EDCTNI, NTPROBNP, CHEM8, LIPASE, CMETADD #### Unless otherwise noted, all testing performed by [place] [address] CLIA: [id number] Refuge Manager: Maurice Coello M.D. Platelets #/vol (Bld) 309 K/mcL Normal 162-402 [facility] Comment on above: Performed By: #### C BCWOD, PT, PTT, DDIMR, EDCTNI, NTPROBNP, CHEM8, LIPASE, CMETADD #### Unless otherwise noted, all testing performed by [place] [address] CLIA: [id number] Refuge Manager: Maurice Coello M.D. RBC #/vol (Bld) 4.20 M/mcL Normal 3.7-5.0 [facility] Comment on above: Performed By: #### C BCWOD, PT, PTT, DDIMR, EDCTNI, NTPROBNP, CHEM8, LIPASE, CMETADD #### Unless otherwise noted, all testing performed by [place] [address] CLIA: [id number] Refuge Manager: Maurice Coello M.D. Segmented Neut % 63.3 % Normal [facility] Comment on above: Performed By: #### C BCWOD, PT, PTT, DDIMR, EDCTNI, NTPROBNP, CHEM8, LIPASE, CMETADD #### Unless otherwise noted, all testing performed by [place] [address] CLIA: [id number] Refuge Manager: Maurice Coello M.D. WBC #/vol (Bld) 6.6 K/mcL Normal 3.4-10.6 [facility] Comment on above: Performed By: #### C BCWOD, PT, PTT, DDIMR, EDCTNI, NTPROBNP, CHEM8, LIPASE, CMETADD #### Unless otherwise noted, all testing performed by [place] [address] CLIA: [id number] Refuge Manager: Maurice Coello M.D. Cardiac Troponin-Ion 018 Troponin I.cardiac mass conc No Biomarker evidence of myocardial injury within the past 14 hours. Normal [facility] Comment on above: Performed By: #### C BCWOD, PT, PTT, DDIMR, EDCTNI, NTPROBNP, CHEM8, LIPASE, CMETADD #### Unless otherwise noted, all testing performed by [place] [address] CLIA: [id number] Refuge Manager: Maurice Coello M.D. Troponin I.cardiac mass conc ng/mL Normal < 45.0 [facility] Comment on above: Result Comment: Elev [...] Unless otherwise noted, all testing performed by [address] [address] CLIA: [id number] Refuge Manager: Maurice Coello M.D. LUNG VENTILATION AND PERFUSI ONon 06-21-2018 LUNG VENTILATION AND PERFUSION Final Report Accession No: [id number] Performed: Jun 21 2018 12:54PM Examination: [...] FINCH M.D. Trans: dw : cc: Normal [facility] Basic Metabolic Panelon 06-06 Calcium mass conc 8.8 mg/dL Normal 8.4-10.2 [facility] Comment on above: Performed By: #### C BCWOD, PT, PTT, DDIMR, EDCTNI, NTPROBNP, CHEM8, LIPASE, CMETADD #### Unless otherwise noted, all testing performed by [place] [address] CLIA: [id number] Refuge Manager: Maurice Coello M.D. Chloride molar conc 98 mmol/L Normal 98-[address] [facility] Comment on above: Performed By: #### C BCWOD, PT, PTT, DDIMR, EDCTNI, NTPROBNP, CHEM8, LIPASE, CMETADD #### Unless otherwise noted, all testing performed by [place] [address] CLIA: [id number] Refuge Manager: Maurice Coello M.D. CO2 molar conc 24 mmol/L Normal 21-32 [facility] [facility] Comment on above: Performed By: #### C BCWOD, PT, PTT, DDIMR, EDCTNI, NTPROBNP, CHEM8, LIPASE, CMETADD #### Unless otherwise noted, all testing performed by [place] [address] CLIA: [id number] Refuge Manager: Maurice Coello M.D. Creatinine mass conc 1.51 mg/dL High 0.40-1.10 [facility] Comment on above: Performed By: #### C BCWOD, PT, PTT, DDIMR, EDCTNI, NTPROBNP, CHEM8, LIPASE, CMETADD #### Unless otherwise noted, all testing performed by [place] [address] CLIA: [id number] Refuge Manager: Maurice Coello M.D. GFR/1.73 sq M predicted among blacks MDRD vol rate/area (S/P/Bld) 43 mL/min/{1.73_m2} Low >60 [facility] Comment on above: Result Comment: Afri can [place] GFR Calc Performed By: #### C BCWOD, PT, PTT, DDIMR, EDCTNI, NTPROBNP, CHEM8, LIPASE, CMETADD #### Unless otherwise noted, all testing performed by [place] [address] CLIA: [id number] Refuge Manager: Maurice Coello M.D. GFR/1.73 sq M predicted among non-blacks MDRD vol rate/area (S/P/Bld) 35 mL/min/{1.73_m2} Low >60 [facility] Comment on above: Result Comment: Non- GFR [...] Unless otherwise noted, all testing performed by [place] [address] CLIA: [id number] Refuge Manager: Maurice Coello M.D. Glucose mass conc 113 mg/dL High 70-99 [facility] Comment on above: Result Comment: This test result might be falsely depressed or falsely elevated on samples drawn from patients taking Sulfasalazine and Sulfapyridine. Venipuncture should occur prior to taking either of these drugs. Performed By: #### C BCWOD, PT, PTT, DDIMR, EDCTNI, NTPROBNP, CHEM8, LIPASE, CMETADD #### Unless otherwise noted, all testing performed by [place] [address] CLIA: [id number] Refuge Manager: Maurice Coello M.D. Potassium molar conc 4.9 mmol/L Normal 3.5-5.1 [facility] Comment on above: Performed By: #### C BCWOD, PT, PTT, DDIMR, EDCTNI, NTPROBNP, CHEM8, LIPASE, CMETADD #### Unless otherwise noted, all testing performed by [place] [address] CLIA: [id number] Refuge Manager: Maurice Coello M.D. Sodium molar conc 132 mmol/L Low 135-145 [facility] Comment on above: Performed By: #### C BCWOD, PT, PTT, DDIMR, EDCTNI, NTPROBNP, CHEM8, LIPASE, CMETADD #### Unless otherwise noted, all testing performed by [place] [address] CLIA: [id number] Refuge Manager: Maurice Coello M.D. Urea nitrogen mass conc 13 mg/dL Normal 8-25 [facility] Comment on above: Performed By: #### C BCWOD, PT, PTT, DDIMR, EDCTNI, NTPROBNP, CHEM8, LIPASE, CMETADD #### Unless otherwise noted, all testing performed by [place] [address] CLIA: [id number] Refuge Manager: Maurice Coello M.D. CBC w/o Diffon 06-20-2018 Erythrocyte distribution width Ratio (RBC) 15.4 % High 10.0-14.4 [facility] Comment on above: Performed By: #### C BCWOD, PT, PTT, DDIMR, EDCTNI, NTPROBNP, CHEM8, LIPASE, CMETADD #### Unless otherwise noted, all testing performed by [place] [address] CLIA: [id number] Refuge Manager: Maurice Coello M.D. Hematocrit Volume Fraction (Bld) 36.2 % Normal 34.4-44.8 [facility] Comment on above: Performed By: #### C BCWOD, PT, PTT, DDIMR, EDCTNI, NTPROBNP, CHEM8, LIPASE, CMETADD #### Unless otherwise noted, all testing performed by [place] [address] CLIA: [id number] Refuge Manager: Maurice Coello M.D. Hemoglobin mass conc (Bld) 11.7 g/dL Normal 11.6-15.4 [facility] Comment on above: Performed By: #### C BCWOD, PT, PTT, DDIMR, EDCTNI, NTPROBNP, CHEM8, LIPASE, CMETADD #### Unless otherwise noted, all testing performed by [place] [address] CLIA: [id number] Refuge Manager: Maurice Coello M.D. MCH Entitic mass (RBC) 25.8 pg Low 27.9-33.9 [facility] Comment on above: Performed By: #### C BCWOD, PT, PTT, DDIMR, EDCTNI, NTPROBNP, CHEM8, LIPASE, CMETADD #### Unless otherwise noted, all testing performed by [place] [address] CLIA: [id number] Refuge Manager: Maurice Coello M.D. MCHC mass conc (RBC) 32.3 g/dL Low 33.1-35.1 [facility] Comment on above: Performed By: #### C BCWOD, PT, PTT, DDIMR, EDCTNI, NTPROBNP, CHEM8, LIPASE, CMETADD #### Unless otherwise noted, all testing performed by [place] [address] CLIA: [id number] Refuge Manager: Maurice Coello M.D. MCV Entitic volume (RBC) 79.7 fL Low 82.6-98.9 [facility] Comment on above: Performed By: #### C BCWOD, PT, PTT, DDIMR, EDCTNI, NTPROBNP, CHEM8, LIPASE, CMETADD #### Unless otherwise noted, all testing performed by [place] [address] CLIA: [id number] Refuge Manager: Maurice Coello M.D. Platelet mean volume Entitic volume (Bld) 7.5 fL Normal 7.0-10.6 [facility] Comment on above: Performed By: #### C BCWOD, PT, PTT, DDIMR, EDCTNI, NTPROBNP, CHEM8, LIPASE, CMETADD #### Unless otherwise noted, all testing performed by [place] [address] CLIA: [id number] Refuge Manager: Maurice Coello M.D. Platelets #/vol (Bld) 341 K/mcL Normal 162-402 [facility] Comment on above: Performed By: #### C BCWOD, PT, PTT, DDIMR, EDCTNI, NTPROBNP, CHEM8, LIPASE, CMETADD #### Unless otherwise noted, all testing performed by [place] [address] CLIA: [id number] Refuge Manager: Maurice Coello M.D. RBC #/vol (Bld) 4.53 M/mcL Normal 3.7-5.0 [facility] Comment on above: Performed By: #### C BCWOD, PT, PTT, DDIMR, EDCTNI, NTPROBNP, CHEM8, LIPASE, CMETADD #### Unless otherwise noted, all testing performed by [place] [address] CLIA: [id number] Refuge Manager: Maurice Coello M.D. WBC #/vol (Bld) 9.1 K/mcL Normal 3.4-10.6 [facility] Comment on above: Performed By: #### C BCWOD, PT, PTT, DDIMR, EDCTNI, NTPROBNP, CHEM8, LIPASE, CMETADD #### Unless otherwise noted, all testing performed by [facility] [address], [place] [address] CLIA: [id number] Refuge Manager: Maurice Coello M.D. CHEST (ONE VIEW ONLY)on 06-06 CHEST (ONE VIEW ONLY) Final Report Accession No: [id number] Performed: Jun 20 2018 5:35PM Examination: [...] SCHMITZ M.D. Trans: tk : cc: Normal [facility] CPKon 06-20-2018 CPK 413 U/L High 40-170 [facility] Comment on above: Performed By: #### C BCWOD, PT, PTT, DDIMR, EDCTNI, NTPROBNP, CHEM8, LIPASE, CMETADD #### Unless otherwise noted, all testing performed by [facility] [address], [place] [address] CLIA: [id number] Refuge Manager: Maurice Coello M.D. Cardiac Troponin-Ion 018 Troponin I.cardiac mass conc ng/mL Normal < 45.0 [facility] Comment on above: Result Comment: Elev [...] Unless otherwise noted, all testing performed by [facility] [address] [facility]. [place], [place] [address] CLIA: [id number] Refuge Manager: Maurice Coello M.D. D-Dimeron 06-20-2018 D-Dimer 0.90 mcg/ml (FEU) High < .5 [facility] Comment on above: Result Comment: This test is intended for use in conjunction with a clinical pretest probability (PTP) assessment model to exclude pulmonary embolism (PE) and deep vein thrombosis (DVT) in outpatients suspected of PE or DVT. Performed By: #### C BCWOD, PT, PTT, DDIMR, EDCTNI, NTPROBNP, CHEM8, LIPASE, CMETADD #### Unless otherwise noted, all testing performed by [facility] [address] [facility]. [place], [place] [address] CLIA: [id number] Refuge Manager: Maurice Coello M.D. ED Cardiac Troponin-Ion 06-06 Troponin I.cardiac mass conc ng/mL Normal < 45 [facility] Comment on above: Result Comment: Elev [...] Unless otherwise noted, all testing performed by [place] [address] CLIA: [id number] Refuge Manager: Maurice Coello M.D. Lipid Panelon 06-20-2018 Cholesterol in HDL mass conc 41 mg/dL Normal 40-59 [facility] Comment on above: Performed By: #### C BCWOD, PT, PTT, DDIMR, EDCTNI, NTPROBNP, CHEM8, LIPASE, CMETADD #### Unless otherwise noted, all testing performed by [place] [address] CLIA: [id number] Refuge Manager: Maurice Coello M.D. Cholesterol in LDL mass conc 122 mg/dL Normal 10-150 [facility] Comment on above: Performed By: #### C BCWOD, PT, PTT, DDIMR, EDCTNI, NTPROBNP, CHEM8, LIPASE, CMETADD #### Unless otherwise noted, all testing performed by [place] [address] CLIA: [id number] Refuge Manager: Maurice Coello M.D. Cholesterol in VLDL mass conc 42 mg/dL High 5-40 [facility] Comment on above: Performed By: #### C BCWOD, PT, PTT, DDIMR, EDCTNI, NTPROBNP, CHEM8, LIPASE, CMETADD #### Unless otherwise noted, all testing performed by [place] [address] CLIA: [id number] Refuge Manager: Maurice Coello M.D. Cholesterol mass conc 205 mg/dL High 100-199 [facility] Comment on above: Performed By: #### C BCWOD, PT, PTT, DDIMR, EDCTNI, NTPROBNP, CHEM8, LIPASE, CMETADD #### Unless otherwise noted, all testing performed by [place] [address] CLIA: [id number] Refuge Manager: Maurice Coello M.D. Cholesterol.total/Camille sterol in HDL mass ratio 5.0 {ratio} Normal 3.2-5.0 [facility] Comment on above: Result Comment: Fema le Coronary Heart Disease Risk Factor (CHDRF): Average risk= 4.4 1/2 Average risk= 3.3 2 times Average risk= 7.1 Performed By: #### C BCWOD, PT, PTT, DDIMR, EDCTNI, NTPROBNP, CHEM8, LIPASE, CMETADD #### Unless otherwise noted, all testing performed by [place] [address] CLIA: [id number] Refuge Manager: Maurice Coello M.D. Triglyceride mass conc 209 mg/dL High 25-120 [facility] Comment on above: Performed By: #### C BCWOD, PT, PTT, DDIMR, EDCTNI, NTPROBNP, CHEM8, LIPASE, CMETADD #### Unless otherwise noted, all testing performed by [place] [address] CLIA: [id number] Refuge Manager: Maurice Coello M.D. Troponin I.cardiac mass conc No Biomarker evidence of myocardial injury within the past 14 hours. Normal [facility] Comment on above: Performed By: #### C BCWOD, PT, PTT, DDIMR, EDCTNI, NTPROBNP, CHEM8, LIPASE, CMETADD #### Unless otherwise noted, all testing performed by [place] [address] CLIA: [id number] Refuge Manager: Maurice Coello M.D. NT-Pro BNP, Serumon 06-20-20 18 Natriuretic peptide B mass conc (Bld) 494 pg/mL High 0-125 [facility] Comment on above: Performed By: #### C BCWOD, PT, PTT, DDIMR, EDCTNI, NTPROBNP, CHEM8, LIPASE, CMETADD #### Unless otherwise noted, all testing performed by [place] [address] CLIA: [id number] Refuge Manager: Maurice Coello M.D. Partial Thromboplastin Timeo n 06-20-2018 aPTT Coag time (Bld) 30 s Normal 23.0-34.0 [facility] Comment on above: Result Comment: Uday silva therapeutic range for PTT is 68-104 sec. Performed By: #### C BCWOD, PT, PTT, DDIMR, EDCTNI, NTPROBNP, CHEM8, LIPASE, CMETADD #### Unless otherwise noted, all testing performed by [place] [address] CLIA: [id number] Refuge Manager: Maurice Coello M.D. Protimeon 06-20-2018 INR Coag RelTime (PPP) 0.99 {INR} Normal [facility] Comment on above: Result Comment: The [place] [employer] recommended therapeutic range for Warfarin (Coumadin) therapy goals: PROPHYLAXIS/TREATMENT of: INR Venous Thrombosis, Pulmonary Embolism 2.0-3.0 Prevention of VTE (Orthopedic Surgery) 2.0-3.0 Atrial Fibrillation 2.0-3.0 Myocardial Infarction 2.0-3.0 Mechanical Prosthetic Heart Valves (Aortic position) 2.0-3.0 Mechanical Prosthetic Heart Valves (Mitral Position) 2.5-3.5 [place] [employer] evidence-based clinical practice guidelines. CHEST. 2012 (9th ed) Performed By: #### C BCWOD, PT, PTT, DDIMR, EDCTNI, NTPROBNP, CHEM8, LIPASE, CMETADD #### Unless otherwise noted, all testing performed by [place] [address] CLIA: [id number] Refuge Manager: Maurice Coello M.D. Prothrombin time (PT) Coag time (PPP) 12.8 s Normal 11.8-14.3 [facility] Comment on above: Performed By: #### C BCWOD, PT, PTT, DDIMR, EDCTNI, NTPROBNP, CHEM8, LIPASE, CMETADD #### Unless otherwise noted, all testing performed by [place] [address] CLIA: [id number] Refuge Manager: Maurice Coello M.D. Urinalysis, Routineon 2017 Bilirubin,Urine Negative Normal NEG;NEGATIVE [facility] Comment on above: Performed By: #### C BCWOD, PT, PTT, DDIMR, EDCTNI, NTPROBNP, CHEM8, LIPASE, CMETADD #### Unless otherwise noted, all testing performed by [place] [address] CLIA: [id number] Refuge Manager: Maurice Coello M.D. Blood,Urine Negative Normal NEG;NEGATIVE [facility] Comment on above: Performed By: #### C BCWOD, PT, PTT, DDIMR, EDCTNI, NTPROBNP, CHEM8, LIPASE, CMETADD #### Unless otherwise noted, all testing performed by [place] [address] CLIA: [id number] Refuge Manager: Maurice Coello M.D. Character Nom (U) Clear Normal [facility] Comment on above: Performed By: #### C BCWOD, PT, PTT, DDIMR, EDCTNI, NTPROBNP, CHEM8, LIPASE, CMETADD #### Unless otherwise noted, all testing performed by [place] [address] CLIA: [id number] Refuge Manager: Maurice Coello M.D. Color Nom (U) Yellow Normal [facility] Comment on above: Performed By: #### C BCWOD, PT, PTT, DDIMR, EDCTNI, NTPROBNP, CHEM8, LIPASE, CMETADD #### Unless otherwise noted, all testing performed by [place] [phone] CLIA: [id number] Refuge Manager: Maurice Coello M.D. Glucose Ql (U) Negative Normal NEG;NEGATIVE [facility] Comment on above: Performed By: #### C BCWOD, PT, PTT, DDIMR, EDCTNI, NTPROBNP, CHEM8, LIPASE, CMETADD #### Unless otherwise noted, all testing performed by [place] [address] CLIA: [id number] Refuge Manager: Maurice Coello M.D. Ketone,Urine Negative Normal NEG;NEGATIVE [facility] Comment on above: Performed By: #### C BCWOD, PT, PTT, DDIMR, EDCTNI, NTPROBNP, CHEM8, LIPASE, CMETADD #### Unless otherwise noted, all testing performed by [place] [address] CLIA: [id number] Refuge Manager: Maurice Coello M.D. Leuk.Esterase,Urine Negative Normal Negative [facility] Comment on above: Performed By: #### C BCWOD, PT, PTT, DDIMR, EDCTNI, NTPROBNP, CHEM8, LIPASE, CMETADD #### Unless otherwise noted, all testing performed by [place] [address] CLIA: [id number] Refuge Manager: Maurice Coello M.D. Nitrite,Urine Negative Normal NEG;NEGATIVE [facility] Comment on above: Performed By: #### C BCWOD, PT, PTT, DDIMR, EDCTNI, NTPROBNP, CHEM8, LIPASE, CMETADD #### Unless otherwise noted, all testing performed by [place] [address] CLIA: [id number] Refuge Manager: Maurice Coello M.D. pH (U) 5.0 [pH] Normal 4.5-8.0 [facility] Comment on above: Performed By: #### C BCWOD, PT, PTT, DDIMR, EDCTNI, NTPROBNP, CHEM8, LIPASE, CMETADD #### Unless otherwise noted, all testing performed by [place] [address] CLIA: [id number] Refuge Manager: Maurice Coello M.D. Protein mass conc (U) Negative Normal NEG;NEGATIVE [facility] Comment on above: Performed By: #### C BCWOD, PT, PTT, DDIMR, EDCTNI, NTPROBNP, CHEM8, LIPASE, CMETADD #### Unless otherwise noted, all testing performed by [place] [address] CLIA: [id number] Refuge Manager: Maurice Coello M.D. Specific [place],Urine 1.004 Normal 1.003-1.029 [facility] Comment on above: Performed By: #### C BCWOD, PT, PTT, DDIMR, EDCTNI, NTPROBNP, CHEM8, LIPASE, CMETADD #### Unless otherwise noted, all testing performed by [place] [address] CLIA: [id number] Refuge Manager: Maurice Coello M.D. Squamous Epithelial < 1 Normal 0-[address] [facility] Comment on above: Performed By: #### C BCWOD, PT, PTT, DDIMR, EDCTNI, NTPROBNP, CHEM8, LIPASE, CMETADD #### Unless otherwise noted, all testing performed by [place] [address] CLIA: [id number] Refuge Manager: Maurice Coello M.D. Urobilinogen,Urine < 2.0 Normal <2 [facility] Comment on above: Performed By: #### C BCWOD, PT, PTT, DDIMR, EDCTNI, NTPROBNP, CHEM8, LIPASE, CMETADD #### Unless otherwise noted, all testing performed by [place] [address] CLIA: [id number] Refuge Manager: Maurice Coello M.D. WBC LM.HPF #/area (Urine sed) /[HPF] Normal 0-5 [facility] Comment on above: Performed By: #### C BCWOD, PT, PTT, DDIMR, EDCTNI, NTPROBNP, CHEM8, LIPASE, CMETADD #### Unless otherwise noted, all testing performed by [place] [address] CLIA: [id number] Refuge Manager: Maurice Coello M.D. SHOULDER 2 OR MORE VIEWSon 0 05-18-2018 SHOULDER 2 OR MORE VIEWS Final Report Accession No: [id number] Performed: May 18 2018 9:38AM Examination: [...] CADENA M.D. Trans: n/a : cc: Normal [facility] BUN and Creatinineon 04--2 018 Creatinine 1.60 mg/dL High 0.40-1.10 [facility] Comment on above: Performed By: #### C BCWOD, PT, PTT, DDIMR, EDCTNI, NTPROBNP, CHEM8, LIPASE, CMETADD #### Unless otherwise noted, all testing performed by [place] [address] CLIA: [id number] Refuge Manager: Maurice Coello M.D. eGFR (black) 40 mL/min/{1.73_m2} Low >60 [facility] Comment on above: Result Comment: Afri can [place] GFR Calc Performed By: #### C BCWOD, PT, PTT, DDIMR, EDCTNI, NTPROBNP, CHEM8, LIPASE, CMETADD #### Unless otherwise noted, all testing performed by [place] [address] CLIA: [id number] Refuge Manager: Maurice Coello M.D. eGFR (non-black) 33 mL/min/{1.73_m2} Low >60 [facility] Comment on above: Result Comment: Non- [...] Unless otherwise noted, all testing performed by [place] [address] CLIA: [id number] Refuge Manager: Maurice Coello M.D. Interpretation and review of laboratory results Abnormal Invalid Interpretation Code [facility] Urea nitrogen 14 mg/dL Normal 8-25 [facility] Comment on above: Performed By: #### C BCWOD, PT, PTT, DDIMR, EDCTNI, NTPROBNP, CHEM8, LIPASE, CMETADD #### Unless otherwise noted, all testing performed by [place] [address] CLIA: [id number] Refuge Manager: Maurice Coello M.D. Electrolyte Panelon 02-06-20 18 Chloride 104 mmol/L Normal 98-108 [facility] Comment on above: Performed By: #### C BCWOD, PT, PTT, DDIMR, EDCTNI, NTPROBNP, CHEM8, LIPASE, CMETADD #### Unless otherwise noted, all testing performed by [place] [address] CLIA: [id number] Refuge Manager: Maurice Coello M.D. CO2 27 mmol/L Normal 21-32 [facility] Comment on above: Performed By: #### C BCWOD, PT, PTT, DDIMR, EDCTNI, NTPROBNP, CHEM8, LIPASE, CMETADD #### Unless otherwise noted, all testing performed by [place] [address] CLIA: [id number] Refuge Manager: Maurice Coello M.D. Potassium 4.5 mmol/L Normal 3.5-5.1 [facility] Comment on above: Performed By: #### C BCWOD, PT, PTT, DDIMR, EDCTNI, NTPROBNP, CHEM8, LIPASE, CMETADD #### Unless otherwise noted, all testing performed by [place] [address] CLIA: [id number] Refuge Manager: Maurice Coello M.D. Sodium 139 mmol/L Normal 135-145 [facility] Comment on above: Performed By: #### C BCWOD, PT, PTT, DDIMR, EDCTNI, NTPROBNP, CHEM8, LIPASE, CMETADD #### Unless otherwise noted, all testing performed by [place] [address] CLIA: [id number] Refuge Manager: Maurice Coello M.D. Hemoglobin and Hematocriton 02-05-2018 Hematocrit (HCT) 37.8 % Invalid Interpretation Code 34.4 - 44.8 % [facility] Hemoglobin (HGB) 12.2 g/dL Normal 11.6-15.4 [facility] Comment on above: Performed By: #### C BCWOD, PT, PTT, DDIMR, EDCTNI, NTPROBNP, CHEM8, LIPASE, CMETADD #### Unless otherwise noted, all testing performed by [place] [address] CLIA: [id number] Refuge Manager: Maurice Coello M.D. Hgb and Hcton 02-05-2018 Hematocrit Volume Fraction (Bld) 37.8 % Normal 34.4-44.8 [facility] Comment on above: Performed By: #### C BCWOD, PT, PTT, DDIMR, EDCTNI, NTPROBNP, CHEM8, LIPASE, CMETADD #### Unless otherwise noted, all testing performed by [place] [address] CLIA: [id number] Refuge Manager: Maurice Coello M.D. Protein Panel, Urineon 02-05 Creatinine, Urine Random 67.60 mg/dL Normal [facility] Comment on above: Result Comment: No e stablished reference range. Performed By: #### C BCWOD, PT, PTT, DDIMR, EDCTNI, NTPROBNP, CHEM8, LIPASE, CMETADD #### Unless otherwise noted, all testing performed by [place] [address] CLIA: [id number] Refuge Manager: Maurice Coello M.D. Interpretation and review of laboratory results Abnormal Invalid Interpretation Code [facility] Protein Creatinine Ratio 0.21 High 0.0-0.2 [facility] Comment on above: Performed By: #### C BCWOD, PT, PTT, DDIMR, EDCTNI, NTPROBNP, CHEM8, LIPASE, CMETADD #### Unless otherwise noted, all testing performed by [place] [address] CLIA: [id number] Refuge Manager: Maurice Coello M.D. Protein mass conc (U) 14.3 mg/dL Normal [facility] Comment on above: Performed By: #### C BCWOD, PT, PTT, DDIMR, EDCTNI, NTPROBNP, CHEM8, LIPASE, CMETADD #### Unless otherwise noted, all testing performed by [place] [address] CLIA: [id number] Refuge Manager: Maurice Coello M.D. Protein, Urine Random 14.3 mg/dL Invalid Interpretation Code [facility] Protein/Creatinine Ratio, Urine 0.21 1 High 0.0 - 0.2 [facility] Basic Metabolic Panelon - Calcium mass conc 8.4 mg/dL Normal 8.4-10.2 [facility] Comment on above: Performed By: #### C BCWOD, PT, PTT, DDIMR, EDCTNI, NTPROBNP, CHEM8, LIPASE, CMETADD #### Unless otherwise noted, all testing performed by [place] [address] CLIA: [id number] Refuge Manager: Maurice Coello M.D. Chloride molar conc 107 mmol/L Normal 98-[address] [facility] Comment on above: Performed By: #### C BCWOD, PT, PTT, DDIMR, EDCTNI, NTPROBNP, CHEM8, LIPASE, CMETADD #### Unless otherwise noted, all testing performed by [place] [address] CLIA: [id number] Refuge Manager: Maurice Coello M.D. CO2 molar conc 24 mmol/L Normal 21-32 [facility] Comment on above: Performed By: #### C BCWOD, PT, PTT, DDIMR, EDCTNI, NTPROBNP, CHEM8, LIPASE, CMETADD #### Unless otherwise noted, all testing performed by [place] [address] CLIA: [id number] Refuge Manager: Maurice Coello M.D. Creatinine mass conc 1.53 mg/dL High 0.40-1.10 [facility] Comment on above: Performed By: #### C BCWOD, PT, PTT, DDIMR, EDCTNI, NTPROBNP, CHEM8, LIPASE, CMETADD #### Unless otherwise noted, all testing performed by [place] [address] CLIA: [id number] Refuge Manager: Maurice Coello M.D. GFR/1.73 sq M predicted among blacks MDRD vol rate/area (S/P/Bld) 42 mL/min/{1.73_m2} Low >60 [facility] Comment on above: Result Comment: Afri can [place] GFR Calc Performed By: #### C BCWOD, PT, PTT, DDIMR, EDCTNI, NTPROBNP, CHEM8, LIPASE, CMETADD #### Unless otherwise noted, all testing performed by [place] [address] CLIA: [id number] Refuge Manager: Maurice Coello M.D. GFR/1.73 sq M predicted among non-blacks MDRD vol rate/area (S/P/Bld) 35 mL/min/{1.73_m2} Low >60 [facility] Comment on above: Result Comment: Non- GFR [...] Unless otherwise noted, all testing performed by [place] [address] CLIA: [id number] Refuge Manager: Maurice Coello M.D. Glucose mass conc 147 mg/dL High 70-99 [facility] Comment on above: Result Comment: This test result might be falsely depressed or falsely elevated on samples drawn from patients taking Sulfasalazine and Sulfapyridine. Venipuncture should occur prior to taking either of these drugs. Performed By: #### C BCWOD, PT, PTT, DDIMR, EDCTNI, NTPROBNP, CHEM8, LIPASE, CMETADD #### Unless otherwise noted, all testing performed by [place] [address] CLIA: [id number] Refuge Manager: Maurice Coello M.D. Potassium molar conc 5.3 mmol/L High 3.5-5.1 [facility] Comment on above: Performed By: #### C BCWOD, PT, PTT, DDIMR, EDCTNI, NTPROBNP, CHEM8, LIPASE, CMETADD #### Unless otherwise noted, all testing performed by [place] [address] CLIA: [id number] Refuge Manager: Maurice Coello M.D. Sodium molar conc 138 mmol/L Normal 135-145 [facility] Comment on above: Performed By: #### C BCWOD, PT, PTT, DDIMR, EDCTNI, NTPROBNP, CHEM8, LIPASE, CMETADD #### Unless otherwise noted, all testing performed by [place] [address] CLIA: [id number] Refuge Manager: Maurice Coello M.D. Urea nitrogen mass conc 14 mg/dL Normal 8-25 [facility] Comment on above: Performed By: #### C BCWOD, PT, PTT, DDIMR, EDCTNI, NTPROBNP, CHEM8, LIPASE, CMETADD #### Unless otherwise noted, all testing performed by [place] [address] CLIA: [id number] Refuge Manager: Maurice Coello M.D. CBC with Diffon 01-30-2018 Basophils #/vol (Bld) 0.0 K/mcL Normal 0-0.2 [facility] Comment on above: Performed By: #### C BCWOD, PT, PTT, DDIMR, EDCTNI, NTPROBNP, CHEM8, LIPASE, CMETADD #### Unless otherwise noted, all testing performed by [place] [address] CLIA: [id number] Refuge Manager: Maurice Coello M.D. Basophils/100 WBC (Bld) 0.3 % Normal [facility] Comment on above: Performed By: #### C BCWOD, PT, PTT, DDIMR, EDCTNI, NTPROBNP, CHEM8, LIPASE, CMETADD #### Unless otherwise noted, all testing performed by [place] [address] CLIA: [id number] Refuge Manager: Maurice Coello M.D. Eosinophils #/vol (Bld) 0.0 K/mcL Normal 0-0.5 [facility] Comment on above: Performed By: #### C BCWOD, PT, PTT, DDIMR, EDCTNI, NTPROBNP, CHEM8, LIPASE, CMETADD #### Unless otherwise noted, all testing performed by [place] [address] CLIA: [id number] Refuge Manager: Maurice Coello M.D. Eosinophils/100 WBC (Bld) 0.1 % Normal [facility] Comment on above: Performed By: #### C BCWOD, PT, PTT, DDIMR, EDCTNI, NTPROBNP, CHEM8, LIPASE, CMETADD #### Unless otherwise noted, all testing performed by [place] [address] CLIA: [id number] Refuge Manager: Maurice Coello M.D. Erythrocyte distribution width Ratio (RBC) 17.8 % High 10.0-14.4 [facility] Comment on above: Performed By: #### C BCWOD, PT, PTT, DDIMR, EDCTNI, NTPROBNP, CHEM8, LIPASE, CMETADD #### Unless otherwise noted, all testing performed by [place] [address] CLIA: [id number] Refuge Manager: Maurice Coello M.D. Hematocrit Volume Fraction (Bld) 34.8 % Normal 34.4-44.8 [facility] Comment on above: Performed By: #### C BCWOD, PT, PTT, DDIMR, EDCTNI, NTPROBNP, CHEM8, LIPASE, CMETADD #### Unless otherwise noted, all testing performed by [place] [address] CLIA: [id number] Refuge Manager: Maurice Coello M.D. Hemoglobin mass conc (Bld) 11.3 g/dL Low 11.6-15.4 [facility] Comment on above: Performed By: #### C BCWOD, PT, PTT, DDIMR, EDCTNI, NTPROBNP, CHEM8, LIPASE, CMETADD #### Unless otherwise noted, all testing performed by [place] [address] CLIA: [id number] Refuge Manager: Maurice Coello M.D. Lymphocytes #/vol (Bld) 0.6 K/mcL Low 1.0-3.7 [facility] Comment on above: Performed By: #### C BCWOD, PT, PTT, DDIMR, EDCTNI, NTPROBNP, CHEM8, LIPASE, CMETADD #### Unless otherwise noted, all testing performed by [place] [address] CLIA: [id number] Refuge Manager: Maurice Coello M.D. Lymphocytes/100 WBC (Bld) 8.3 % Normal [facility] Comment on above: Performed By: #### C BCWOD, PT, PTT, DDIMR, EDCTNI, NTPROBNP, CHEM8, LIPASE, CMETADD #### Unless otherwise noted, all testing performed by [place] [address] CLIA: [id number] Refuge Manager: Maurice Coello M.D. MCH Entitic mass (RBC) 26.1 pg Low 27.9-33.9 [facility] Comment on above: Performed By: #### C BCWOD, PT, PTT, DDIMR, EDCTNI, NTPROBNP, CHEM8, LIPASE, CMETADD #### Unless otherwise noted, all testing performed by [place] [address] CLIA: [id number] Refuge Manager: Maurice Coello M.D. MCHC mass conc (RBC) 32.5 g/dL Low 33.1-35.1 [facility] Comment on above: Performed By: #### C BCWOD, PT, PTT, DDIMR, EDCTNI, NTPROBNP, CHEM8, LIPASE, CMETADD #### Unless otherwise noted, all testing performed by [place] [address] CLIA: [id number] Refuge Manager: Maurice Coello M.D. MCV Entitic volume (RBC) 80.3 fL Low 82.6-98.9 [facility] Comment on above: Performed By: #### C BCWOD, PT, PTT, DDIMR, EDCTNI, NTPROBNP, CHEM8, LIPASE, CMETADD #### Unless otherwise noted, all testing performed by [place] [address] CLIA: [id number] Refuge Manager: Maurice Coello M.D. Monocytes #/vol (Bld) 0.1 K/mcL Normal 0.1-0.6 [facility] Comment on above: Performed By: #### C BCWOD, PT, PTT, DDIMR, EDCTNI, NTPROBNP, CHEM8, LIPASE, CMETADD #### Unless otherwise noted, all testing performed by [place] [address] CLIA: [id number] Refuge Manager: Maurice Coello M.D. Monocytes/100 WBC (Bld) 0.7 % Normal [facility] Comment on above: Performed By: #### C BCWOD, PT, PTT, DDIMR, EDCTNI, NTPROBNP, CHEM8, LIPASE, CMETADD #### Unless otherwise noted, all testing performed by [place] [address] CLIA: [id number] Refuge Manager: Maurice Coello M.D. Neutrophils #/vol (Bld) 6.8 K/mcL Normal 1.2-6.9 [facility] Comment on above: Performed By: #### C BCWOD, PT, PTT, DDIMR, EDCTNI, NTPROBNP, CHEM8, LIPASE, CMETADD #### Unless otherwise noted, all testing performed by [place] [address] CLIA: [id number] Refuge Manager: Maurice Coello M.D. Platelet mean volume Entitic volume (Bld) 8.3 fL Normal 7.0-10.6 [facility] Comment on above: Performed By: #### C BCWOD, PT, PTT, DDIMR, EDCTNI, NTPROBNP, CHEM8, LIPASE, CMETADD #### Unless otherwise noted, all testing performed by [place] [address] CLIA: [id number] Refuge Manager: Maurice Coello M.D. Platelets #/vol (Bld) 281 K/mcL Normal 162-402 [facility] Comment on above: Performed By: #### C BCWOD, PT, PTT, DDIMR, EDCTNI, NTPROBNP, CHEM8, LIPASE, CMETADD #### Unless otherwise noted, all testing performed by [place] [address] CLIA: [id number] Refuge Manager: Maurice Coello M.D. RBC #/vol (Bld) 4.34 M/mcL Normal 3.7-5.0 [facility] Comment on above: Performed By: #### C BCWOD, PT, PTT, DDIMR, EDCTNI, NTPROBNP, CHEM8, LIPASE, CMETADD #### Unless otherwise noted, all testing performed by [place] [address] CLIA: [id number] Refuge Manager: Maurice Coello M.D. Segmented Neut % 90.6 % Normal [facility] Comment on above: Performed By: #### C BCWOD, PT, PTT, DDIMR, EDCTNI, NTPROBNP, CHEM8, LIPASE, CMETADD #### Unless otherwise noted, all testing performed by [address] [place], [place] [address] CLIA: [id number] Refuge Manager: Maurice Coello M.D. WBC #/vol (Bld) 7.5 K/mcL Normal 3.4-10.6 [facility] Comment on above: Performed By: #### C BCWOD, PT, PTT, DDIMR, EDCTNI, NTPROBNP, CHEM8, LIPASE, CMETADD #### Unless otherwise noted, all testing performed by [place] [address] CLIA: [id number] Refuge Manager: Maurice Coello M.D. Cardiac Troponin-Ion 018 Troponin I.cardiac mass conc No Biomarker evidence of myocardial injury within the past 14 hours. Normal [facility] Comment on above: Performed By: #### C BCWOD, PT, PTT, DDIMR, EDCTNI, NTPROBNP, CHEM8, LIPASE, CMETADD #### Unless otherwise noted, all testing performed by [place] [address] CLIA: [id number] Refuge Manager: Maurice Coelol M.D. Troponin I.cardiac mass conc ng/mL Normal < 45.0 [facility] Comment on above: Result Comment: Elev [...] Unless otherwise noted, all testing performed by [place] [address] CLIA: [id number] Refuge Manager: Maurice Coello M.D. Troponin I.cardiac mass conc No Biomarker evidence of myocardial injury within the past 14 hours. Normal [facility] Comment on above: Performed By: #### C BCWOD, PT, PTT, DDIMR, EDCTNI, NTPROBNP, CHEM8, LIPASE, CMETADD #### Unless otherwise noted, all testing performed by [place] [address] CLIA: [id number] Refuge Manager: Maurice Coello M.D. LUNG VENTILATION AND PERFUSI ONon 01-30-2018 LUNG VENTILATION AND PERFUSION Final Report Accession No: [id number] Performed: Jan 30 2018 2:17PM Examination: [...] embolism. Interpreting Physician: ARNOL PEREZ M.D. Trans: [email or web address] : cc: Normal [facility] Basic Metabolic Panelon 01-05 Calcium mass conc 8.9 mg/dL Normal 8.4-10.2 [facility] Comment on above: Performed By: #### C BCWOD, PT, PTT, DDIMR, EDCTNI, NTPROBNP, CHEM8, LIPASE, CMETADD #### Unless otherwise noted, all testing performed by [address] [place] [address] CLIA: [id number] Refuge Manager: Maurice Coello M.D. Chloride molar conc 104 mmol/L Normal 98-[address] [facility] Comment on above: Performed By: #### C BCWOD, PT, PTT, DDIMR, EDCTNI, NTPROBNP, CHEM8, LIPASE, CMETADD #### Unless otherwise noted, all testing performed by [place] [address] CLIA: [id number] Refuge Manager: Maurice Coello M.D. CO2 molar conc 27 mmol/L Normal 21-32 [facility] Comment on above: Performed By: #### C BCWOD, PT, PTT, DDIMR, EDCTNI, NTPROBNP, CHEM8, LIPASE, CMETADD #### Unless otherwise noted, all testing performed by [place] [address] CLIA: [id number] Refuge Manager: Maurice Coello M.D. Creatinine mass conc 1.66 mg/dL High 0.40-1.10 [facility] Comment on above: Performed By: #### C BCWOD, PT, PTT, DDIMR, EDCTNI, NTPROBNP, CHEM8, LIPASE, CMETADD #### Unless otherwise noted, all testing performed by [place] [address] CLIA: [id number] Refuge Manager: Maurice Coello M.D. GFR/1.73 sq M predicted among blacks MDRD vol rate/area (S/P/Bld) 38 mL/min/{1.73_m2} Low >60 [facility] Comment on above: Result Comment: Afri can [place] GFR Calc Performed By: #### C BCWOD, PT, PTT, DDIMR, EDCTNI, NTPROBNP, CHEM8, LIPASE, CMETADD #### Unless otherwise noted, all testing performed by [address] [place] [address] CLIA: [id number] Refuge Manager: Maurice Coello M.D. GFR/1.73 sq M predicted among non-blacks MDRD vol rate/area (S/P/Bld) 32 mL/min/{1.73_m2} Low >60 [facility] Comment on above: Result Comment: Non- GFR [...] Unless otherwise noted, all testing performed by [place] [address] CLIA: [id number] Refuge Manager: Maurice Coello M.D. Glucose mass conc 124 mg/dL High 70-99 [facility] Comment on above: Result Comment: This test result might be falsely depressed or falsely elevated on samples drawn from patients taking Sulfasalazine and Sulfapyridine. Venipuncture should occur prior to taking either of these drugs. Performed By: #### C BCWOD, PT, PTT, DDIMR, EDCTNI, NTPROBNP, CHEM8, LIPASE, CMETADD #### Unless otherwise noted, all testing performed by [place] [address] CLIA: [id number] Refuge Manager: Maurice Coello M.D. Potassium molar conc 4.5 mmol/L Normal 3.5-5.1 [facility] Comment on above: Performed By: #### C BCWOD, PT, PTT, DDIMR, EDCTNI, NTPROBNP, CHEM8, LIPASE, CMETADD #### Unless otherwise noted, all testing performed by [place] [address] CLIA: [id number] Refuge Manager: Maurice Coello M.D. Sodium molar conc 137 mmol/L Normal 135-145 [facility] Comment on above: Performed By: #### C BCWOD, PT, PTT, DDIMR, EDCTNI, NTPROBNP, CHEM8, LIPASE, CMETADD #### Unless otherwise noted, all testing performed by [place] [address] CLIA: [id number] Refuge Manager: Maurice Coello M.D. Urea nitrogen mass conc 15 mg/dL Normal 8-25 [facility] Comment on above: Performed By: #### C BCWOD, PT, PTT, DDIMR, EDCTNI, NTPROBNP, CHEM8, LIPASE, CMETADD #### Unless otherwise noted, all testing performed by [place] [address] CLIA: [id number] Refuge Manager: Maurice Coello M.D. CBC w/o Diffon 01-29-2018 Erythrocyte distribution width Ratio (RBC) 17.5 % High 10.0-14.4 [facility] Comment on above: Performed By: #### C BCWOD, PT, PTT, DDIMR, EDCTNI, NTPROBNP, CHEM8, LIPASE, CMETADD #### Unless otherwise noted, all testing performed by [place] [address] CLIA: [id number] Refuge Manager: Maurice Coello M.D. Hematocrit Volume Fraction (Bld) 38.5 % Normal 34.4-44.8 [facility] Comment on above: Performed By: #### C BCWOD, PT, PTT, DDIMR, EDCTNI, NTPROBNP, CHEM8, LIPASE, CMETADD #### Unless otherwise noted, all testing performed by [place] [address] CLIA: [id number] Refuge Manager: Maurice Coello M.D. Hemoglobin mass conc (Bld) 12.7 g/dL Normal 11.6-15.4 [facility] Comment on above: Performed By: #### C BCWOD, PT, PTT, DDIMR, EDCTNI, NTPROBNP, CHEM8, LIPASE, CMETADD #### Unless otherwise noted, all testing performed by [place] [phone] CLIA: [id number] Refuge Manager: Maurice Coello M.D. MCH Entitic mass (RBC) 26.1 pg Low 27.9-33.9 [facility] Comment on above: Performed By: #### C BCWOD, PT, PTT, DDIMR, EDCTNI, NTPROBNP, CHEM8, LIPASE, CMETADD #### Unless otherwise noted, all testing performed by [place] [address] CLIA: [id number] Refuge Manager: Maurice Coello M.D. MCHC mass conc (RBC) 32.9 g/dL Low 33.1-35.1 [facility] Comment on above: Performed By: #### C BCWOD, PT, PTT, DDIMR, EDCTNI, NTPROBNP, CHEM8, LIPASE, CMETADD #### Unless otherwise noted, all testing performed by [place] [address] CLIA: [id number] Refuge Manager: Maurice Coello M.D. MCV Entitic volume (RBC) 79.4 fL Low 82.6-98.9 [facility] Comment on above: Performed By: #### C BCWOD, PT, PTT, DDIMR, EDCTNI, NTPROBNP, CHEM8, LIPASE, CMETADD #### Unless otherwise noted, all testing performed by [place] [address] CLIA: [id number] Refuge Manager: Maurice Coello M.D. Platelet mean volume Entitic volume (Bld) 7.8 fL Normal 7.0-10.6 [facility] Comment on above: Performed By: #### C BCWOD, PT, PTT, DDIMR, EDCTNI, NTPROBNP, CHEM8, LIPASE, CMETADD #### Unless otherwise noted, all testing performed by [place] [address] CLIA: [id number] Refuge Manager: Maurice Coello M.D. Platelets #/vol (Bld) 351 K/mcL Normal 162-402 [facility] Comment on above: Performed By: #### C BCWOD, PT, PTT, DDIMR, EDCTNI, NTPROBNP, CHEM8, LIPASE, CMETADD #### Unless otherwise noted, all testing performed by [place] [address] CLIA: [id number] Refuge Manager: Maurice Coello M.D. RBC #/vol (Bld) 4.84 M/mcL Normal 3.7-5.0 [facility] Comment on above: Performed By: #### C BCWOD, PT, PTT, DDIMR, EDCTNI, NTPROBNP, CHEM8, LIPASE, CMETADD #### Unless otherwise noted, all testing performed by [place] [address] CLIA: [id number] Refuge Manager: Maurice Coello M.D. WBC #/vol (Bld) 7.6 K/mcL Normal 3.4-10.6 [facility] Comment on above: Performed By: #### C BCWOD, PT, PTT, DDIMR, EDCTNI, NTPROBNP, CHEM8, LIPASE, CMETADD #### Unless otherwise noted, all testing performed by [place] [address] CLIA: [id number] Refuge Manager: Maurice Coello M.D. CHEST (ONE VIEW ONLY)on 01-05 CHEST (ONE VIEW ONLY) Final Report Accession No: [id number] Performed: Jan 29 2018 6:55PM Examination: [...] SCHMITZ M.D. Trans: [email or web address] : cc: Normal [facility] CMET Add-On Testson 01-30-20 Albumin mass conc 3.7 g/dL Normal 3.2-5.2 [facility] Comment on above: Performed By: #### C BCWOD, PT, PTT, DDIMR, EDCTNI, NTPROBNP, CHEM8, LIPASE, CMETADD #### Unless otherwise noted, all testing performed by [place] [address] CLIA: [id number] Refuge Manager: Maurice Coello M.D. ALP enzyme act/vol 107 U/L Normal 40-150 [facility] Comment on above: Performed By: #### C BCWOD, PT, PTT, DDIMR, EDCTNI, NTPROBNP, CHEM8, LIPASE, CMETADD #### Unless otherwise noted, all testing performed by [place] [address] CLIA: [id number] Refuge Manager: Maurice Coello M.D. ALT enzyme act/vol 29 U/L Normal 14-65 [facility] Comment on above: Result Comment: This test result might be falsely depressed or falsely elevated on samples drawn from patients taking Sulfasalazine and Sulfapyridine. Venipuncture should occur prior to taking either of these drugs. Performed By: #### C BCWOD, PT, PTT, DDIMR, EDCTNI, NTPROBNP, CHEM8, LIPASE, CMETADD #### Unless otherwise noted, all testing performed by [place] [address] CLIA: [id number] Refuge Manager: Maurice Coello M.D. AST enzyme act/vol 21 U/L Normal 0-45 [facility] Comment on above: Result Comment: This test result might be falsely depressed or falsely elevated on samples drawn from patients taking Sulfasalazine and Sulfapyridine. Venipuncture should occur prior to taking either of these drugs. Performed By: #### C BCWOD, PT, PTT, DDIMR, EDCTNI, NTPROBNP, CHEM8, LIPASE, CMETADD #### Unless otherwise noted, all testing performed by [place] [address] CLIA: [id number] Refuge Manager: Maurice Coello M.D. Bilirubin mass conc 0.2 mg/dL Low 0.3-1.[address] [facility] Comment on above: Performed By: #### C BCWOD, PT, PTT, DDIMR, EDCTNI, NTPROBNP, CHEM8, LIPASE, CMETADD #### Unless otherwise noted, all testing performed by [place] [address] CLIA: [id number] Refuge Manager: Maurice Coello M.D. Protein mass conc 8.2 g/dL High 6.0-8.0 [facility] Comment on above: Performed By: #### C BCWOD, PT, PTT, DDIMR, EDCTNI, NTPROBNP, CHEM8, LIPASE, CMETADD #### Unless otherwise noted, all testing performed by [place] [address] CLIA: [id number] Refuge Manager: Maurice Coello M.D. Cardiac Troponin-Ion 018 Troponin I.cardiac mass conc ng/mL Normal < 45 [facility] Comment on above: Result Comment: Elev [...] Unless otherwise noted, all testing performed by [place] [address] CLIA: [id number] Refuge Manager: Maurice Coello M.D. D-Dimeron 01-29-2018 D-Dimer 1.88 mcg/ml (FEU) High < .5 [facility] Comment on above: Result Comment: This test is intended for use in conjunction with a clinical pretest probability (PTP) assessment model to exclude pulmonary embolism (PE) and deep vein thrombosis (DVT) in outpatients suspected of PE or DVT. Performed By: #### C BCWOD, PT, PTT, DDIMR, EDCTNI, NTPROBNP, CHEM8, LIPASE, CMETADD #### Unless otherwise noted, all testing performed by [place] [address] CLIA: [id number] Refuge Manager: Maurice Coello M.D. Lactic Acidon 01-29-2018 Lactate molar conc 1.3 mmol/L Normal 0.6-2.0 [facility] Comment on above: Performed By: #### C BCWOD, PT, PTT, DDIMR, EDCTNI, NTPROBNP, CHEM8, LIPASE, CMETADD #### Unless otherwise noted, all testing performed by [place] [address] CLIA: [id number] Refuge Manager: Maurice Coello M.D. Lipaseon 01-29-2018 Lipase enzyme act/vol 250 U/L Normal 73-393 [facility] Comment on above: Performed By: #### C BCWOD, PT, PTT, DDIMR, EDCTNI, NTPROBNP, CHEM8, LIPASE, CMETADD #### Unless otherwise noted, all testing performed by [place] [address] CLIA: [id number] Refuge Manager: Maurice Coello M.D. NT-Pro BNP, Serumon 01-30-20 18 Natriuretic peptide B mass conc (Bld) 97 pg/mL Normal 0-125 [facility] Comment on above: Performed By: #### C BCWOD, PT, PTT, DDIMR, EDCTNI, NTPROBNP, CHEM8, LIPASE, CMETADD #### Unless otherwise noted, all testing performed by [place] [address] CLIA: [id number] Refuge Manager: Maurice Coello M.D. Partial Thromboplastin Timeo n 01-29-2018 aPTT Coag time (Bld) 31 s Normal 23.0-34.0 [facility] Comment on above: Result Comment: Uday silva therapeutic range for PTT is 68-104 sec. Performed By: #### C BCWOD, PT, PTT, DDIMR, EDCTNI, NTPROBNP, CHEM8, LIPASE, CMETADD #### Unless otherwise noted, all testing performed by [place] [address] CLIA: [id number] Refuge Manager: Maurice Coello M.D. Protimeon 01-29-2018 INR Coag RelTime (PPP) 0.93 {INR} Normal [facility] Comment on above: Result Comment: The [place] [employer] recommended therapeutic range for Warfarin (Coumadin) therapy goals: PROPHYLAXIS/TREATMENT of: INR Venous Thrombosis, Pulmonary Embolism 2.0-3.0 Prevention of VTE (Orthopedic Surgery) 2.0-3.0 Atrial Fibrillation 2.0-3.0 Myocardial Infarction 2.0-3.0 Mechanical Prosthetic Heart Valves (Aortic position) 2.0-3.0 Mechanical Prosthetic Heart Valves (Mitral Position) 2.5-3.5 [place] [employer] evidence-based clinical practice guidelines. CHEST. 2012 (9th ed) Performed By: #### C BCWOD, PT, PTT, DDIMR, EDCTNI, NTPROBNP, CHEM8, LIPASE, CMETADD #### Unless otherwise noted, all testing performed by [place] [address] CLIA: [id number] Refuge Manager: Maurice Coello M.D. Prothrombin time (PT) Coag time (PPP) 12.1 s Normal 11.8-14.3 [facility] Comment on above: Performed By: #### C BCWOD, PT, PTT, DDIMR, EDCTNI, NTPROBNP, CHEM8, LIPASE, CMETADD #### Unless otherwise noted, all testing performed by [facility] Dina Parikh [place] [id number] CLIA: [id number] Refuge Manager: Maurice Coello M.D. TSHon 01-12-2018 Interpretation and review of laboratory results Abnormal Invalid Interpretation Code [facility] Thyroid stimulating hormone (TSH) 24.40 uIU/mL High 0.320 - 5.000 [facility] Thyroxine (T4) free 1.0 ng/dL Invalid Interpretation Code 0.76 - 1.79 ng/dL [facility] CBC with DIFFERENTIALon 10-07 Basophils Auto #/vol (Bld) 0.04 10*3/uL Normal <=0.70 [facility] Comment on above: Performed By: #### 5 7021-8 ####[place] [address] Director - Gail Allison [id number] Basophils/100 WBC Auto (Bld) 0.3 % Normal <=2.0 [facility] Comment on above: Performed By: #### 5 7021-8 ####[place] [address] [address] Director - Gail Borrego [place] [id number] Eosinophils 0.04 10*3/uL Normal <=0.70 [facility] Comment on above: Performed By: #### 5 7021-8 ####[place] [address] Director - Gail Allison [id number] Eosinophils/100 leukocytes 0.3 % Normal <=10.0 [facility] Comment on above: Performed By: #### 5 7021-8 ####[place] [address] [facility].[address] Director - Gail Allison [id number] Erythrocyte distribution width Auto Entitic volume (RBC) 46.7 fL High 36.4-46.3 [facility] Comment on above: Performed By: #### 5 7021-8 ####[facility] Director - Gailpaulo MadrigalrellCLIA [id number] Erythrocytes (RBC) 4.90 10*6/uL Normal 4.00-6.30 [facility] Comment on above: Performed By: #### 5 7021-8 ####[facility] Director - Gail RohanrellCLIA [id number] Hematocrit (HCT) 38.1 % Normal 37.0-47.0 [facility] Comment on above: Performed By: #### 5 7021-8 ####[facility] Director - Gailpaulo Allison [id number] Hemoglobin mass conc (Bld) 12.2 g/dL Normal 12.0-16.0 [facility] Comment on above: Performed By: #### 5 7021-8 ####[facility] Director - Gail FarrellCLIA [id number] Immature granulocytes #/vol (Bld) 0.03 10*3/uL Normal <=0.10 [facility] Comment on above: Performed By: #### 5 7021-8 ####[facility] Director - Gail FarrellCLIA [id number] Immature granulocytes/100 WBC (Bld) 0.30 % Normal <=1.50 [facility] Comment on above: Performed By: #### 5 7021-8 ####[facility] Director - Gail FarrellCLIA [id number] Lymphocytes 1.42 10*3/uL Normal 1.20-3.40 [facility] Comment on above: Performed By: #### 5 7021-8 ####[facility] Director - Gail FarrellCLIA [id number] Lymphocytes/100 leukocytes 11.9 % Low 20.0-40.0 [facility] Comment on above: Performed By: #### 5 7021-8 ####[facility] Director - Gail Allison [id number] MCH 24.9 pg Low 27.0-31.0 [facility] Comment on above: Performed By: #### 5 7021-8 ####[facility] Director - Gail Allison [id number] MCHC mass conc (RBC) 32.0 g/dL Normal 32.0-36.0 [facility] Comment on above: Performed By: #### 5 7021-8 ####[facility] Director - Gail Allison [id number] MCV 77.8 fL Low 80.0-100.0 [facility] Comment on above: Performed By: #### 5 7021-8 ####[facility] Director - Gail Allison [id number] Monocytes 0.53 10*3/uL Normal 0.10-0.60 [facility] Comment on above: Performed By: #### 5 7021-8 ####[facility] Director - Gail Allison [id number] Monocytes/100 leukocytes 4.5 % Normal <=8.0 [facility] Comment on above: Performed By: #### 5 7021-8 ####[facility] Director - Gail Allison [id number] Neutrophils 9.84 10*3/uL High 1.40-6.50 [facility] Comment on above: Performed By: #### 5 7021-8 ####[facility] Director - Gail Allison [id number] Neutrophils/100 WBC Auto (Bld) 82.7 % High 50.0-70.0 [facility] Comment on above: Performed By: #### 5 7021-8 ####[facility] Director - Gail Allison [id number] Nucleated erythrocytes 0.00 10*3/uL Normal <=0.10 [facility] Comment on above: Performed By: #### 5 7021-8 ####[facility] Director - Gail Allison [id number] Platelet mean volume (PMV) 10.2 fL Normal 9.0-13.0 [facility] Comment on above: Performed By: #### 5 7021-8 ####[facility] Director - Gail Allison [id number] Platelets 269 10*3/uL Normal 130-400 [facility] Comment on above: Performed By: #### 5 7021-8 ####[facility] Director - Gail Allison [id number] WBC (Leukocytes) 11.90 10*3/uL High 4.80-10.80 [facility] Comment on above: Performed By: #### 5 7021-8 ####[facility] Director - Gail Allison [id number] [facility] Creatine kinase (CK) 617 U/L High 21-215 [facility] Comment on above: Performed By: #### 2 157-6, 03013-1, 3040-3 ####[facility] Director - Gail Allison [id number] COMPREHENSIVE METABOLIC PANE Jett 11-02-2017 Alanine aminotransferase (ALT) 31 U/L Normal 14-59 [facility] Comment on above: Performed By: #### 2 157-6, 67987-0, 0-3 ####[facility], [place] [address]Kntqupy Director - Gail Allison [id number] Albumin 3.7 g/dL Normal 3.4-5.0 [facility] Comment on above: Performed By: #### 2 157-6, 66035-5, 0-3 ####[facility] Director - Gail Allison [id number] Alkaline phosphatase (ALP) 109 U/L Normal 50-136 [facility] Comment on above: Performed By: #### 2 157-6, 49912-6, 0-3 ####[facility] Director - Gail Allison [id number] Anion gap 7.0 mmol/L Normal <=15.0 [facility] Comment on above: Performed By: #### 2 157-6, 61477-4, 0-3 ####[facility] Director - Gail Allison [id number] Aspartate aminotransferase (AST) 34 U/L Normal 15-37 [facility] Comment on above: Performed By: #### 2 157-6, 91709-7, 0-3 ####[facility] Director - Gail Allison [id number] Bilirubin (total) 0.3 mg/dL Normal 0.2-1.0 [facility] Comment on above: Performed By: #### 2 157-6, 82217-0, 0-3 ####[facility], [place] [address]Kenphqu Director - Gail Allison [id number] Calcium 9.1 mg/dL Normal 8.5-10.1 [facility] Comment on above: Performed By: #### 2 157-6, 42298-7, 3040-3 ####[facility] Director - Gail Allison [id number] Chloride 102 mmol/L Normal 98-107 [facility] Comment on above: Performed By: #### 2 157-6, 39277-5, 3040-3 ####[facility] Director - Gail ThompsonBAMBI [id number] CO2 27 mmol/L Normal 21-32 [facility] Comment on above: Performed By: #### 2 157-6, 14520-5, 3040-3 ####[facility] [facility] [id number] Creatinine 1.34 mg/dL High 0.51-0.95 [facility] Comment on above: Performed By: #### 2 157-6, 76972-6, 3040-3 ####[facility] [facility] [id number] eGFR (MDRD) 40 mL/min/{1.73_m2} Low >=59 [facility] Comment on above: Performed By: #### 2 157-6, 54657-0, 3040-3 ####[facility] [facility] [id number] eGFR (non-black) GLOMERULAR FILTRATIO N RATE INTERPRETATION~The [...] months, with or without kidney damage.~ Normal [facility] Comment on above: Performed By: #### 2 157-6, 39010-5, 3040-3 ####[facility] Director - Gail JayJOHN [place] [id number] Glucose mass conc 115 mg/dL High 74-106 [facility] Comment on above: Performed By: #### 2 157-6, 15023-6, 0-3 ####[facility] Director - Gail KebedeCA [id number] Potassium molar conc 4.3 mmol/L Normal 3.5-5.1 [facility] Comment on above: Performed By: #### 2 157-6, 95494-8, 0-3 ####[facility] Director - Gail Allison [id number] Protein 7.7 g/dL Normal 6.4-8.2 [facility] Comment on above: Performed By: #### 2 157-6, 88927-6, 0-3 ####[facility] Director - Gail Allison [id number] Sodium 136 mmol/L Normal 136-145 [facility] Comment on above: Performed By: #### 2 157-6, 30005-3, 0-3 ####[facility] Director - Gail YandyCA [id number] Urea nitrogen 17 mg/dL Normal 7-17 [facility] Comment on above: Performed By: #### 2 157-6, 06840-2, 0-3 ####[facility], [place] [address]Xuthclk Director - Gail Allison [id number] LACTATEon 11-02-2017 Lactate 0.6 mmol/L Normal 0.4-2.0 [facility] Comment on above: Performed By: #### 2 524-7 ####[facility], [place] [address]Ohmselg Director - Gail Allison [id number] LIPASEon 11-02-2017 Lipase 183 U/L Normal 73-393 [facility] Comment on above: Performed By: #### 2 157-6, 09628-8, 3040-3 ####[place] [address], [place] [address]Ulcyqng Director - Gail Allison [id number] PT with INRon 11-02-2017 INR Coag RelTime (Bld) INR REFERENCE RAN GE INTERPRETATION Patients on Coumadin 2.0 - 3.0 Patients with mechanical heart valves 2.5 - 3.5 Normal [facility] Comment on above: Performed By: #### 5 902-2, 47104-5 ####[facility] Director - Gail Allison [id number] INR Coag RelTime (PPP) 1.0 {INR} Normal 0.8-1.1 [facility] Comment on above: Performed By: #### 5 902-2, 89981-2 ####[facility], [place] [address]Ozjqqaq Director - Gail Allison [id number] Prothrombin time (PT) Coag time (PPP) 10.6 Secs Normal 9.3-11.5 [facility] Comment on above: Performed By: #### 5 902-2, 78802-1 ####[facility], [place] [address]Vvvssyi Director - Gail Allison [id number] PTTon 11-02-2017 aPTT 27.6 Sec Normal 23.5-31.3 [facility] Comment on above: Performed By: #### 5 902-2, 02916-9 ####[facility] [address]Medical Director - Gail Allison [id number] BUN and Creatinineon 017 Creatinine 1.53 mg/dL High 0.4 - 1.1 mg/dL [facility] eGFR (black) 42 mL/min/{1.73_m2} Low >60 [place] [facility] eGFR (non-black) 35 mL/min/{1.73_m2} Low >60 [facility] Interpretation and review of laboratory results Abnormal Invalid Interpretation Code [facility] Urea nitrogen 15 mg/dL Invalid Interpretation Code 8 - 25 mg/dL [facility] Calcium Levelon 07-05-2017 Calcium 9.0 mg/dL Invalid Interpretation Code 8.4 - 10.2 mg/dL [facility] Electrolyte Panelon 07-05-20 17 Chloride 104 mmol/L Invalid Interpretation Code 98 - 108 mmol/L [facility] CO2 23 mmol/L Invalid Interpretation Code 21 - 32 mmol/L [facility] Potassium 4.7 mmol/L Invalid Interpretation Code 3.5 - 5.1 mmol/L [facility] Sodium 136 mmol/L Invalid Interpretation Code 135 - 145 mmol/L [facility] Hemoglobin and Hematocriton 07-05-2017 Hematocrit (HCT) 37.0 % Invalid Interpretation Code 34.4 - 44.8 % [facility] Hemoglobin (HGB) 12.1 g/dL Invalid Interpretation Code 11.6 - 15.4 g/dL [facility] Parathyroid Hormoneon 2016 Parathyroid Hormone 90.3 pg/mL High 14.1 - 7 2 pg/mL [facility] Protein Panel, Urineon 07-05 Creatinine, Urine Random 64.80 mg/dL Invalid Interpretation Code [facility] Interpretation and review of laboratory results Abnormal Invalid Interpretation Code [facility] Protein, Urine Random 15.5 mg/dL Invalid Interpretation Code [facility] Protein/Creatinine Ratio, Urine 0.24 1 High 0.0 - 0.2 [facility] TSHon 07-05-2017 Thyroid stimulating hormone (TSH) 0.90 uIU/mL Invalid Interpretation Code 0.320 - 5.000 [facility] Vitamin D, Total, 25-OHon Vitamin D, 25-Hydroxy, Total 26.6 ng/mL Invalid Interpretation Code [facility] Vital Signs Date Time Vital Sign Value Performing Clinician Facility 07-23-2025 13:10-0400 Body height 162 cm Emmett Hyman MD Work Phone: [facility] 07-23-2025 13:10-0400 Body mass index (BMI) [Ratio] 37.95 kg/m2 Emmett Hyman MD Work Phone: [facility] 07-23-2025 13:10-0400 Body weight 99.6 kg Emmett Hyman MD Work Phone: [facility] 07-23-2025 13:10-0400 Diastolic blood pressure 78 mm[Hg] Emmett Hyman MD Work Phone: [facility] 07-23-2025 13:10-0400 Heart rate 61 /min Emmett Hyman MD Work Phone: [facility] 07-23-2025 13:10-0400 Systolic blood pressure 129 mm[Hg] Emmett Hyman MD Work Phone: [facility] 07-20-2025 10:07-0400 Diastolic blood pressure 55 mm[Hg] Dr. Jennifer Gordon MD Work Phone: [facility] 07-20-2025 10:07-0400 Systolic blood pressure 129 mm[Hg] Dr. Jennifer Gordon MD Work Phone: [facility] 07-20-2025 08:12-0400 Heart rate 71 /min Dr. Jennifer Gordon MD Work Phone: [facility] 07-20-2025 08:00-0400 Body temperature 98 [degF] Dr. Jennifer Gordon MD Work Phone: [facility] 07-20-2025 08:00-0400 Inhaled oxygen flow rate 2 L/min Dr. Jennifer Gordon MD Work Phone: [facility] 07-20-2025 08:00-0400 Respiratory rate 16 /min Dr. Jennifer Gordon MD Work Phone: [facility] 07-20-2025 08:00-0400 SaO2% (BldA) [Mass fraction] 96 % Dr. Jennifer Gordon MD Work Phone: [facility] 07-20-2025 05:31-0400 Body mass index (BMI) [Ratio] 36.7 kg/m2 Dr. Jennifer Gordon MD Work Phone: [facility] 07-20-2025 05:31-0400 Body weight 100.[address] Jennifer Gordon MD Work Phone: [facility] 07-18-2025 10:59-0400 Body height 165.[address] Jennifer Gordon MD Work Phone: [facility] 07-17-2025 23:08-0400 Body temperature 98.1 [degF] Dr. Jennifer Gordon MD Work Phone: [facility] 07-17-2025 23:08-0400 Diastolic blood pressure 91 mm[Hg] Dr. Jennifer Gordon MD Work Phone: [facility] 07-17-2025 23:08-0400 Heart rate 69 /min Dr. Jennifer Gordon MD Work Phone: [facility] 07-17-2025 23:08-0400 Respiratory rate 18 /min Dr. Jennifer Gordon MD Work Phone: [facility] 07-17-2025 23:08-0400 SaO2% (BldA) [Mass fraction] 97 % Dr. Jennifer Gordon MD Work Phone: [facility] 07-17-2025 23:08-0400 Systolic blood pressure 182 mm[Hg] Dr. Jennifer Gordon MD Work Phone: [facility] 07-17-2025 21:00-0400 Inhaled oxygen flow rate 4 L/min Dr. Jennifer Gordon MD Work Phone: [facility] 07-17-2025 19:06-0400 Body height 165.[address] Jennifer Gordon MD Work Phone: [facility] 07-17-2025 19:06-0400 Body mass index (BMI) [Ratio] 37.3 kg/m2 Dr. Jennifer Gordon MD Work Phone: [facility] 07-17-2025 19:06-0400 Body weight 101.[address] Jennifer Gordon MD Work Phone: [facility] 06-26-2025 14:03-0400 Body height 165.[address] Jennifer Gordon MD Work Phone: [facility] 06-26-2025 14:03-0400 Body mass index (BMI) [Ratio] 35.9 kg/m2 Dr. Jennifer Gordon MD Work Phone: [facility] 06-26-2025 14:03-0400 Body temperature 98 [degF] Dr. Jennifer Gordon MD Work Phone: [facility] 06-26-2025 14:03-0400 Body weight 97.[address] Jennifer Gordon MD Work Phone: [facility] 06-26-2025 14:03-0400 Diastolic blood pressure 68 mm[Hg] Dr. Jennifer Gordon MD Work Phone: [facility] 06-26-2025 14:03-0400 Heart rate 103 /min Dr. Jennifer Gordon MD Work Phone: [facility] 06-26-2025 14:03-0400 Respiratory rate 18 /min Dr. Jennifer Gordon MD Work Phone: [facility] 06-26-2025 14:03-0400 SaO2% (BldA) [Mass fraction] 97 % Dr. Jennifer Gordon MD Work Phone: [facility] 06-26-2025 14:03-0400 Systolic blood pressure 142 mm[Hg] Dr. Jennifer Gordon MD Work Phone: [facility] 06-17-2025 08:29-0400 Body height 165.[address] Jennifer Gordon MD Work Phone: [facility] 06-17-2025 08:29-0400 Body mass index (BMI) [Ratio] 36.6 kg/m2 Dr. Jennifer Gordon MD Work Phone: [facility] 06-17-2025 08:29-0400 Body temperature 97.1 [degF] Dr. Jennifer Gordon MD Work Phone: [facility] 06-17-2025 08:29-0400 Body weight 99.[address] Jennifer Gordon MD Work Phone: [facility] 06-17-2025 08:29-0400 Diastolic blood pressure 65 mm[Hg] Dr. Jennifer Gordon MD Work Phone: [facility] 06-17-2025 08:29-0400 Heart rate 75 /min Dr. Jennifer Gordon MD Work Phone: [facility] 06-17-2025 08:29-0400 Inhaled oxygen flow rate 4 L/min Dr. Jennifer Gordon MD Work Phone: [facility] 06-17-2025 08:29-0400 Respiratory rate 18 /min Dr. Jennifer Gordon MD Work Phone: [facility] 06-17-2025 08:29-0400 SaO2% (BldA) [Mass fraction] 97 % Dr. Jennifer Gordon MD Work Phone: [facility] 06-17-2025 08:29-0400 Systolic blood pressure 136 mm[Hg] Dr. Jennifer Gordon MD Work Phone: [facility] 04-30-2025 10:06-0400 Body height 165.1 cm Cb Boudreaux MD Work Phone: [facility] 04-30-2025 10:06-0400 Body mass index (BMI) [Ratio] 36.11 kg/m2 Cb Boudreaux MD Work Phone: [facility] 04-30-2025 10:06-0400 Body weight 98.43 kg Cb Boudreaux MD Work Phone: [facility] 04-30-2025 10:06-0400 Diastolic blood pressure 93 mm[Hg] Cb Boudreaux MD Work Phone: [facility] 04-30-2025 10:06-0400 Heart rate 64 /min Cb Boudreaux MD Work Phone: [facility] 04-30-2025 10:06-0400 SaO2% (BldA) [Mass fraction] 94 % Cb Boudreaux MD Work Phone: [facility] Comment on above: 2 M 04-30-2025 10:06-0400 Systolic blood pressure 145 mm[Hg] Cb Boudreaux MD Work Phone: [facility] 2025 13:25-0400 Body height 165.[address] Jennifer Gordon MD Work Phone: [facility] 2025 13:25-0400 Body mass index (BMI) [Ratio] 35.6 kg/m2 Dr. Jennifer Gordon MD Work Phone: [facility] 2025 13:25-0400 Body temperature 98.6 [degF] Dr. Jennifer Gordon MD Work Phone: [facility] 2025 13:25-0400 Body weight 97.[address] Jennifer Gordon MD Work Phone: [facility] 2025 13:25-0400 Diastolic blood pressure 84 mm[Hg] Dr. Jennifer Gordon MD Work Phone: [facility] 2025 13:25-0400 Heart rate 71 /min Dr. Jennifer Gordon MD Work Phone: [facility] 2025 13:25-0400 Inhaled oxygen flow rate 4 L/min Dr. Jennifer Gordon MD Work Phone: [facility] 2025 13:25-0400 Respiratory rate 20 /min Dr. Jennifer Gordon MD Work Phone: [facility] 2025 13:25-0400 SaO2% (BldA) [Mass fraction] 99 % Dr. Jennifer Gordon MD Work Phone: [facility] 2025 13:25-0400 Systolic blood pressure 160 mm[Hg] Dr. Jennifer Gordon MD Work Phone: [facility] 04-04-2025 14:41-0400 Heart rate 97 /min Dr. Jennifer Gordon MD Work Phone: [facility] 04-04-2025 14:41-0400 Inhaled oxygen flow rate 4 L/min Dr. Jennifer Gordon MD Work Phone: [facility] 04-04-2025 14:41-0400 SaO2% (BldA) [Mass fraction] 96 % Dr. Jennifer Gordon MD Work Phone: [facility] 04-04-2025 08:16-0400 Body mass index (BMI) [Ratio] 34.9 kg/m2 Dr. Jennifer Gordon MD Work Phone: [facility] 04-04-2025 08:16-0400 Body temperature 97.4 [degF] Dr. Jennifer Gordon MD Work Phone: [facility] 04-04-2025 08:16-0400 Body weight 95.[address] Jennifer Gordon MD Work Phone: [facility] 04-04-2025 08:16-0400 Diastolic blood pressure 82 mm[Hg] Dr. Jennifer Gordon MD Work Phone: [facility] 04-04-2025 08:16-0400 Heart rate 68 /min Dr. Jennifer Gordon MD Work Phone: [facility] 04-04-2025 08:16-0400 Inhaled oxygen flow rate 4 L/min Dr. Jennifer Gordon MD Work Phone: [facility] 04-04-2025 08:16-0400 Respiratory rate 20 /min Dr. Jennifer Gordon MD Work Phone: [facility] 04-04-2025 08:16-0400 SaO2% (BldA) [Mass fraction] 99 % Dr. Jennifer Gordon MD Work Phone: [facility] 04-04-2025 08:16-0400 Systolic blood pressure 165 mm[Hg] Dr. Jennifer Gordon MD Work Phone: [facility] 03-27-2025 11:34-0400 Body height 165.[address] Jennifer Gordon MD Work Phone: [facility] 03-27-2025 11:34-0400 Body mass index (BMI) [Ratio] 36.1 kg/m2 Dr. Jennifer Gordon MD Work Phone: [facility] 03-27-2025 11:34-0400 Body temperature 98.2 [degF] Dr. Jennifer Gordon MD Work Phone: [facility] 03-27-2025 11:34-0400 Body weight 98.[address] Jennifer Gordon MD Work Phone: [facility] 03-27-2025 11:34-0400 Diastolic blood pressure 79 mm[Hg] Dr. Jennifer Gordon MD Work Phone: [facility] 03-27-2025 11:34-0400 Heart rate 96 /min Dr. Jennifer Gordon MD Work Phone: [facility] 03-27-2025 11:34-0400 Inhaled oxygen flow rate 4 L/min Dr. Jennifer Gordon MD Work Phone: [facility] 03-27-2025 11:34-0400 Respiratory rate 17 /min Dr. Jennifer Gordon MD Work Phone: [facility] 03-27-2025 11:34-0400 SaO2% (BldA) [Mass fraction] 95 % Dr. Jennifer Gordon MD Work Phone: [facility] 03-27-2025 11:34-0400 Systolic blood pressure 169 mm[Hg] Dr. Jennifer Gordon MD Work Phone: [facility] 02-18-2025 11:31-0400 Body temperature 98.1 [degF] Jossie Aclazar MD Work Phone: [facility] 02-18-2025 11:31-0400 Diastolic blood pressure 73 mm[Hg] Jossei Alcazar MD Work Phone: [facility] 02-18-2025 11:31-0400 Heart rate 61 /min Jossie Alcazar MD Work Phone: [facility] 02-18-2025 11:31-0400 Respiratory rate 18 /min Jossie Alcazar MD Work Phone: [facility] 02-18-2025 11:31-0400 SaO2% (BldA) [Mass fraction] 97 % Jossie Alcazar MD Work Phone: [facility] 02-18-2025 11:31-0400 Systolic blood pressure 138 mm[Hg] Jossie Alcazar MD Work Phone: [facility] 02-13-2025 15:45-0400 Body height 165.1 cm Bahzat Inge MD Work Phone: [facility] 02-13-2025 15:45-0400 Body mass index (BMI) [Ratio] 35.94 kg/m2 Jossie Alcazar MD Work Phone: [facility] 02-13-2025 15:45-0400 Body weight 97.98 kg Jossie Alcazar MD Work Phone: [facility] 01-06-2025 10:18-0500 Body height 165.[address] Jennifer Gordon MD Work Phone: [facility] 01-06-2025 10:18-0500 Body mass index (BMI) [Ratio] 37.5 kg/m2 Dr. Jennifer Gordon MD Work Phone: [facility] 01-06-2025 10:18-0500 Body weight 102.[address] Jennifer Gordon MD Work Phone: [facility] 01-01-2025 16:41-0500 Body temperature 98 [degF] Dr. Jennifer Gordon MD Work Phone: [facility] 01-01-2025 16:41-0500 Diastolic blood pressure 79 mm[Hg] Dr. Jennifer Gordon MD Work Phone: [facility] 01-01-2025 16:41-0500 Heart rate 85 /min Dr. Jennifer Gordon MD Work Phone: [facility] 01-01-2025 16:41-0500 Respiratory rate 19 /min Dr. Jennifer Gordon MD Work Phone: [facility] 01-01-2025 16:41-0500 SaO2% (BldA) [Mass fraction] 94 % Dr. Jennifer Gordon MD Work Phone: [facility] 01-01-2025 16:41-0500 Systolic blood pressure 128 mm[Hg] Dr. Jennifer Gordon MD Work Phone: [facility] 01-01-2025 15:33-0500 Body mass index (BMI) [Ratio] 36.6 kg/m2 Dr. Jennifer Gordon MD Work Phone: [facility] 01-01-2025 15:33-0500 Body weight 99.[address] Jennifer Gordon MD Work Phone: [facility] 12-26-2024 11:24-0500 Body mass index (BMI) [Ratio] 38.1 kg/m2 Dr. Jennifer Gordon MD Work Phone: [facility] 12-26-2024 11:24-0500 Body temperature 98.2 [degF] Dr. Jennifer Gordon MD Work Phone: [facility] 12-26-2024 11:24-0500 Body weight 103.[address] Jennifer Gordon MD Work Phone: [facility] 12-26-2024 11:24-0500 Diastolic blood pressure 84 mm[Hg] Dr. Jennifer Gordon MD Work Phone: [facility] 12-26-2024 11:24-0500 Heart rate 82 /min Dr. Jennifer Gordon MD Work Phone: [facility] 12-26-2024 11:24-0500 Inhaled oxygen flow rate 4 L/min Dr. Jennifer Gordon MD Work Phone: [facility] 12-26-2024 11:24-0500 Respiratory rate 17 /min Dr. Jennifer Gordon MD Work Phone: [facility] 12-26-2024 11:24-0500 SaO2% (BldA) [Mass fraction] 95 % Dr. Jennifer Gordon MD Work Phone: [facility] 12-26-2024 11:24-0500 Systolic blood pressure 158 mm[Hg] Dr. Jennifer Gordon MD Work Phone: [facility] 10-16-2024 13:23-0500 Body mass index (BMI) [Ratio] 38.2 kg/m2 Dr. Jennifer Gordon MD Work Phone: [facility] 10-16-2024 13:23-0500 Body temperature 97.1 [degF] Dr. Jennifer Gordon MD Work Phone: [facility] 10-16-2024 13:23-0500 Body weight 104.[address] Jennifer Gordon MD Work Phone: [facility] 10-16-2024 13:23-0500 Diastolic blood pressure 78 mm[Hg] Dr. Jennifer Gordon MD Work Phone: [facility] 10-16-2024 13:23-0500 Heart rate 64 /min Dr. Jennifer Gordon MD Work Phone: [facility] 10-16-2024 13:23-0500 Inhaled oxygen flow rate 4 L/min Dr. Jennifer Gordon MD Work Phone: [facility] 10-16-2024 13:23-0500 Respiratory rate 20 /min Dr. Jennifer Gordon MD Work Phone: [facility] 10-16-2024 13:23-0500 SaO2% (BldA) [Mass fraction] 99 % Dr. Jennifer Gordon MD Work Phone: [facility] 10-16-2024 13:23-0500 Systolic blood pressure 122 mm[Hg] Dr. Jennifer Gordon MD Work Phone: [facility] 09-25-2024 08:12-0500 Body temperature 98.2 [degF] Jossie Alcazar MD Work Phone: [facility] 09-25-2024 08:12-0500 Diastolic blood pressure 80 mm[Hg] Jossie Alcazar MD Work Phone: [facility] 09-25-2024 08:12-0500 Heart rate 74 /min Jossie Alcazar MD Work Phone: [facility] 09-25-2024 08:12-0500 Respiratory rate 17 /min Jossie Alcazar MD Work Phone: [facility] 09-25-2024 08:12-0500 SaO2% (BldA) [Mass fraction] 96 % Jossie Alcazar MD Work Phone: [facility] 09-25-2024 08:12-0500 Systolic blood pressure 142 mm[Hg] Jossie Alcazar MD Work Phone: [facility] 09-25-2024 06:31-0500 Body mass index (BMI) [Ratio] 37.79 kg/m2 Jossie Alcazar MD Work Phone: [facility] 09-25-2024 06:31-0500 Body weight 103 kg Jossie Alcazar MD Work Phone: [facility] 09-21-2024 23:21-0500 Body height 165.1 cm Jossie Alcazar MD Work Phone: [facility] 09-18-2024 13:00-0500 Body height 165.1 cm Cb Boudreaux MD Work Phone: [facility] 09-18-2024 13:00-0500 Body mass index (BMI) [Ratio] 39.44 kg/m2 Cb Boudreaux MD Work Phone: [facility] 09-18-2024 13:00-0500 Body weight 107.5 kg Cb Boudreaux MD Work Phone: [facility] 09-18-2024 13:00-0500 Diastolic blood pressure 80 mm[Hg] Cb Boudreaux MD Work Phone: [facility] 09-18-2024 13:00-0500 Heart rate 70 /min Cb Boudreaux MD Work Phone: [facility] 09-18-2024 13:00-0500 SaO2% (BldA) [Mass fraction] 98 % Cb Boudreaux MD Work Phone: [facility] Comment on above: 4 LPM 09-18-2024 13:00-0500 Systolic blood pressure 135 mm[Hg] Cb Boudreaux MD Work Phone: [facility] 09-03-2024 16:01-0400 Diastolic blood pressure 78 mm[Hg] Ramírez Cunningham MD Work Phone: [facility] 09-03-2024 16:01-0400 Heart rate 84 /min Ramírez Cunningham MD Work Phone: [facility] 09-03-2024 16:01-0400 SaO2% (BldA) [Mass fraction] 95 % Ramírez Cunningham MD Work Phone: [facility] 09-03-2024 16:01-0400 Systolic blood pressure 145 mm[Hg] Ramírez Cunningham MD Work Phone: [facility] 09-03-2024 11:16-0400 Body temperature 97.81 [degF] Ramírez Cunningham MD Work Phone: [facility] 09-03-2024 11:00-0400 Respiratory rate 16 /min Ramírez Cunningham MD Work Phone: [facility] 09-02-2024 18:27-0400 Body height 165.1 cm Ramírez Cunningham MD Work Phone: [facility] 09-02-2024 18:27-0400 Body mass index (BMI) [Ratio] 39.44 kg/m2 Ramírez Cunningham MD Work Phone: [facility] 09-02-2024 18:27-0400 Body weight 107.5 kg Ramírez Cunningham MD Work Phone: [facility] 09-02-2024 14:44-0400 SaO2% (BldA) [Mass fraction] 97.3 % Ramírez Cunningham MD Work Phone: [facility] 02-29-2024 14:06-0400 Body height 165.[address] Jennifer Gordon Work Phone: [facility] 02-29-2024 14:06-0400 Body mass index (BMI) [Ratio] 41.4 kg/m2 Dr. Jennifer Gordon Work Phone: [facility] 02-29-2024 14:06-0400 Body temperature 97.7 [degF] Dr. Jennifer Gordon Work Phone: [facility] 02-29-2024 14:06-0400 Body weight [address] Jennifer Gordon Work Phone: [facility] 02-29-2024 14:06-0400 Diastolic blood pressure 78 mm[Hg] Dr. Jennifer Gordon Work Phone: [facility] 02-29-2024 14:06-0400 Heart rate 102 /min Dr. Jennifer Gordon Work Phone: [facility] 02-29-2024 14:06-0400 Respiratory rate 20 /min Dr. Jennifer Gordon Work Phone: [facility] 02-29-2024 14:06-0400 SaO2% (BldA) [Mass fraction] 96 % Dr. Jennifer Gordon Work Phone: [facility] 02-29-2024 14:06-0400 Systolic blood pressure 128 mm[Hg] Dr. Jennifer Gordon Work Phone: [facility] 01-15-2024 07:18-0400 Body mass index (BMI) [Ratio] 40.7 kg/m2 Dr. Jennifer Gordon Work Phone: [facility] 01-15-2024 07:18-0400 Body temperature 96.9 [degF] Dr. Jennifer Gordon Work Phone: [facility] 01-15-2024 07:18-0400 Body weight 111.[address] Jennifer Gordon Work Phone: [facility] 01-15-2024 07:18-0400 Diastolic blood pressure 80 mm[Hg] Dr. Jennifer Gordon Work Phone: [facility] 01-15-2024 07:18-0400 Heart rate 84 /min Dr. Jennifer Gordon Work Phone: [facility] 01-15-2024 07:18-0400 Inhaled oxygen flow rate 4 L/min Dr. Jennifer Gordon Work Phone: [facility] 01-15-2024 07:18-0400 Respiratory rate 20 /min Dr. Jennifer Gordon Work Phone: [facility] 01-15-2024 07:18-0400 SaO2% (BldA) [Mass fraction] 97 % Dr. Jennifer Gordon Work Phone: [facility] 01-15-2024 07:18-0400 Systolic blood pressure 141 mm[Hg] Dr. Jennifer Gordon Work Phone: [facility] 12-11-2023 09:23-0500 Body mass index (BMI) [Ratio] 42.5 kg/m2 Dr. Jennifer Gordon Work Phone: [facility] 12-11-2023 09:23-0500 Body temperature 98 [degF] Dr. Jennifer Gordon Work Phone: [facility] 12-11-2023 09:23-0500 Body weight [address] Jennifer Gordon Work Phone: [facility] 12-11-2023 09:23-0500 Diastolic blood pressure 66 mm[Hg] Dr. Jennifer Gordon Work Phone: [facility] 12-11-2023 09:23-0500 Heart rate 75 /min Dr. Jennifer Gordon Work Phone: [facility] 12-11-2023 09:23-0500 Respiratory rate 18 /min Dr. Jennifer Gordon Work Phone: [facility] 12-11-2023 09:23-0500 SaO2% (BldA) [Mass fraction] 93 % Dr. Jennifer Gordon Work Phone: [facility] 12-11-2023 09:23-0500 Systolic blood pressure 103 mm[Hg] Dr. Jennifer Gordon Work Phone: [facility] 12-11-2023 09:21-0500 Body height 165.[address] Jennifer Gordon Work Phone: [facility] 12-11-2023 07:33-0500 Body mass index (BMI) [Ratio] 42.4 kg/m2 Dr. Jennifer Gordon Work Phone: [facility] 12-11-2023 07:33-0500 Body temperature 98.1 [degF] Dr. Jennifer Gordon Work Phone: [facility] 12-11-2023 07:33-0500 Body weight 115.[address] Jennifer Gordon Work Phone: [facility] 12-11-2023 07:33-0500 Diastolic blood pressure 82 mm[Hg] Dr. Jennifer Gordon Work Phone: [facility] 12-11-2023 07:33-0500 Heart rate 75 /min Dr. Jennifer Gordon Work Phone: [facility] 12-11-2023 07:33-0500 Inhaled oxygen flow rate 4 L/min Dr. Jennifer Gordon Work Phone: [facility] 12-11-2023 07:33-0500 Respiratory rate 18 /min Dr. Jennifer Gordon Work Phone: [facility] 12-11-2023 07:33-0500 SaO2% (BldA) [Mass fraction] 95 % Dr. Jennifer Gordon Work Phone: [facility] 12-11-2023 07:33-0500 Systolic blood pressure 128 mm[Hg] Dr. Jennifer Gordon Work Phone: [facility] 11-28-2023 14:55-0500 Body height 165.[address] Jennifer Gordon Work Phone: [facility] 11-28-2023 14:55-0500 Body mass index (BMI) [Ratio] 40.2 kg/m2 Dr. Jennifer Gordon Work Phone: [facility] 11-28-2023 14:55-0500 Body temperature 98 [degF] Dr. Jennifer Gordon Work Phone: [facility] 11-28-2023 14:55-0500 Body weight 109.[address] Jennifer Gordon Work Phone: [facility] 11-28-2023 14:55-0500 Diastolic blood pressure 66 mm[Hg] Dr. Jennifer Gordon Work Phone: [facility] 11-28-2023 14:55-0500 Heart rate 96 /min Dr. Jennifer Gordon Work Phone: [facility] 11-28-2023 14:55-0500 Respiratory rate 17 /min Dr. Jennifer Gordon Work Phone: [facility] 11-28-2023 14:55-0500 SaO2% (BldA) [Mass fraction] 93 % Dr. Jennifer Gordon Work Phone: [facility] 11-28-2023 14:55-0500 Systolic blood pressure 110 mm[Hg] Dr. Jennifer Gordon Work Phone: [facility] 10-17-2023 13:57-0500 Body mass index (BMI) [Ratio] 39.6 kg/m2 Dr. Jennifer Gordon Work Phone: [facility] 10-17-2023 13:57-0500 Body weight 107.[address] Jennifer Gordon Work Phone: [facility] 10-17-2023 13:57-0500 Diastolic blood pressure 81 mm[Hg] Dr. Jennifer Gordon Work Phone: [facility] 10-17-2023 13:57-0500 Heart rate 74 /min Dr. Jennifer Gordon Work Phone: [facility] 10-17-2023 13:57-0500 Respiratory rate 18 /min Dr. Jennifer Gordon Work Phone: [facility] 10-17-2023 13:57-0500 Systolic blood pressure 122 mm[Hg] Dr. Jennifer Gordon Work Phone: [facility] 06-05-2023 10:16-0400 Body height 165.[address] Rusty Dozier Work Phone: [facility] 06-05-2023 10:16-0400 Body mass index (BMI) [Ratio] 37.3 kg/m2 Dr. Rusty Dozier Work Phone: [facility] 06-05-2023 10:16-0400 Body temperature 95 [degF] Dr. Rusty Dozier Work Phone: [facility] 06-05-2023 10:16-0400 Body weight 101.[address] Rusty Dozier Work Phone: [facility] 06-05-2023 10:16-0400 Diastolic blood pressure 68 mm[Hg] Dr. Rusty Dozier Work Phone: [facility] 06-05-2023 10:16-0400 Heart rate 88 /min Dr. Rusty Dozier Work Phone: [facility] 06-05-2023 10:16-0400 Respiratory rate 18 /min Dr. Rusty Dozier Work Phone: [facility] 06-05-2023 10:16-0400 SaO2% (BldA) [Mass fraction] 95 % Dr. Rusty Dozier Work Phone: 9(856)543-468187 [place] [address] 06-05-2023 10:16-0400 Systolic blood pressure 124 mm[Hg] Dr. Rusty Dozier Work Phone: 8(487)096-407262 [place] [address] 04-18-2023 14:37-0400 Body height 165.[address] Rusty Dozier Work Phone: 2(741)083-254562 [place] [address] 04-18-2023 14:37-0400 Body mass index (BMI) [Ratio] 35.7 kg/m2 Dr. Rusty Dozier Work Phone: 9(501)408-116562 [place] [address] 04-18-2023 14:37-0400 Body weight 97.[address] Rusty Dozier Work Phone: 1(838)638-442462 [place] [address] 04-18-2023 14:37-0400 Diastolic blood pressure 84 mm[Hg] Dr. Rusty Dozier Work Phone: 1(366)751-816662 [place] [address] 04-18-2023 14:37-0400 Heart rate 99 /min Dr. Rusty Dozier Work Phone: 4(515)570-654562 [place] [address] 04-18-2023 14:37-0400 Respiratory rate 18 /min Dr. Rusty Dozier Work Phone: 3(547)304-699762 [place] [address] 04-18-2023 14:37-0400 Systolic blood pressure 122 mm[Hg] Dr. Rusty Dozier Work Phone: 7(245)841-435162 [place] [address] 02-24-2023 09:35-0400 Body mass index (BMI) [Ratio] 35.9 kg/m2 Dr. Rusty Dozier Work Phone: 6(247)305-978862 [place] [address] 02-24-2023 09:35-0400 Body temperature 97.9 [degF] Dr. Rusty Dozier Work Phone: 5(500)099-612062 [place] [address] 02-24-2023 09:35-0400 Body weight 97.[address] Rusty Dozier Work Phone: 7(929)663-748462 [place] [address] 02-24-2023 09:35-0400 Diastolic blood pressure 81 mm[Hg] Dr. Rusty Dozier Work Phone: [facility] 02-24-2023 09:35-0400 Heart rate 104 /min Dr. Rusty Dozier Work Phone: [facility] 02-24-2023 09:35-0400 Inhaled oxygen flow rate 4 L/min Dr. Rusty Dozier Work Phone: [facility] 02-24-2023 09:35-0400 Respiratory rate 22 /min Dr. Rusty Dozier Work Phone: [facility] 02-24-2023 09:35-0400 SaO2% (BldA) [Mass fraction] 97 % Dr. Rusty Dozier Work Phone: [facility] 02-24-2023 09:35-0400 Systolic blood pressure 118 mm[Hg] Dr. Rusty Dozier Work Phone: [facility] 02-07-2023 14:38-0400 Body height 165.1 cm FACTORY REPRESENTATIVE-C Jonathan Hellinger FACTORY REPRESENTATIVE Work Phone: [facility] 02-07-2023 14:38-0400 Body mass index (BMI) [Ratio] 35.2 kg/m2 FACTORY REPRESENTATIVE-C Jonathan Hellinger FACTORY REPRESENTATIVE Work Phone: [facility] 02-07-2023 14:38-0400 Body temperature 98.2 [degF] FACTORY REPRESENTATIVE-C Jonathan Hellinger FACTORY REPRESENTATIVE Work Phone: [facility] 02-07-2023 14:38-0400 Body weight 95.87 kg FACTORY REPRESENTATIVE-C Jonathan Hellinger FACTORY REPRESENTATIVE Work Phone: [facility] 02-07-2023 14:38-0400 Diastolic blood pressure 70 mm[Hg] FACTORY REPRESENTATIVE-C Jonathan Hellinger FACTORY REPRESENTATIVE Work Phone: [facility] 02-07-2023 14:38-0400 Heart rate 127 /min FACTORY REPRESENTATIVE-C Jonathan Hellinger FACTORY REPRESENTATIVE Work Phone: [facility] 02-07-2023 14:38-0400 Inhaled oxygen flow rate 4 L/min FACTORY REPRESENTATIVE-C Jonathan Hellinger FACTORY REPRESENTATIVE Work Phone: [facility] 02-07-2023 14:38-0400 Respiratory rate 17 /min FACTORY REPRESENTATIVE-C Jonathan Hellinger FACTORY REPRESENTATIVE Work Phone: [facility] 02-07-2023 14:38-0400 SaO2% (BldA) [Mass fraction] 95 % FACTORY REPRESENTATIVE-C Jonathan Hellinger FACTORY REPRESENTATIVE Work Phone: [facility] 02-07-2023 14:38-0400 Systolic blood pressure 126 mm[Hg] FACTORY REPRESENTATIVE-C Jonathan Hellinger FACTORY REPRESENTATIVE Work Phone: [facility] 12-01-2022 11:21-0500 Diastolic blood pressure 60 mm[Hg] FACTORY REPRESENTATIVE-C Jonathan Hellinger FACTORY REPRESENTATIVE Work Phone: [facility] 12-01-2022 11:21-0500 Heart rate 82 /min FACTORY REPRESENTATIVE-C Jonathna Hellinger FACTORY REPRESENTATIVE Work Phone: [facility] 12-01-2022 11:21-0500 Systolic blood pressure 108 mm[Hg] FACTORY REPRESENTATIVE-C Jonathan Hellinger FACTORY REPRESENTATIVE Work Phone: [facility] 12-01-2022 08:06-0500 Body height 165.1 cm FACTORY REPRESENTATIVE-C Jonathan Hellinger FACTORY REPRESENTATIVE Work Phone: [facility] 12-01-2022 08:06-0500 Body mass index (BMI) [Ratio] 34.9 kg/m2 FACTORY REPRESENTATIVE-C Jonathan Hellinger FACTORY REPRESENTATIVE Work Phone: [facility] 12-01-2022 08:06-0500 Body temperature 97.2 [degF] FACTORY REPRESENTATIVE-C Jonathan Hellinger FACTORY REPRESENTATIVE Work Phone: [facility] 12-01-2022 08:06-0500 Body weight 95.25 kg FACTORY REPRESENTATIVE-C Jonathan Hellinger FACTORY REPRESENTATIVE Work Phone: [facility] 12-01-2022 08:06-0500 Inhaled oxygen flow rate 4 L/min FACTORY REPRESENTATIVE-C Jonathan Rutherford FACTORY REPRESENTATIVE Work Phone: [facility] 12-01-2022 08:06-0500 Respiratory rate 16 /min FACTORY REPRESENTATIVE-C Jonathan Rutherford FACTORY REPRESENTATIVE Work Phone: [facility] 12-01-2022 08:06-0500 SaO2% (BldA) [Mass fraction] 99 % FACTORY REPRESENTATIVE-C Jonathan Rutherford FACTORY REPRESENTATIVE Work Phone: [facility] 10-06-2022 15:00-0500 Body height 165.[address] Rusty Dozier Work Phone: [facility] Work Phone: 10-06-2022 15:00-0500 Body mass index (BMI) [Ratio] 36.8 kg/m2 Dr. Rusty Dozier Work Phone: [facility] 10-06-2022 15:00-0500 Body temperature 97.8 [degF] Dr. Rusty Dozier Work Phone: [facility] 10-06-2022 15:00-0500 Body weight 100.[address] Rusty Dozier Work Phone: [facility] 10-06-2022 15:00-0500 Diastolic blood pressure 68 mm[Hg] Dr. Rusyt Dozier Work Phone: [facility] 10-06-2022 15:00-0500 Heart rate 51 /min Dr. Rusty Dozier Work Phone: [facility] 10-06-2022 15:00-0500 Respiratory rate 16 /min Dr. Rusty Dozier Work Phone: [facility] 10-06-2022 15:00-0500 SaO2% (BldA) [Mass fraction] 96 % Dr. Rusty Dozier Work Phone: [facility] 10-06-2022 15:00-0500 Systolic blood pressure 138 mm[Hg] Dr. Rusty Dozier Work Phone: [facility] 07-19-2022 14:30-0400 Body height 162.6 cm Debrapatrick Adamson SQL DATA ANALYST Work Phone: [facility] 07-19-2022 14:30-0400 Body mass index (BMI) [Ratio] 39.31 kg/m2 Debra Snow SQL DATA ANALYST Work Phone: [facility] 07-19-2022 14:30-0400 Body weight 103.87 kg Debra Snow SQL DATA ANALYST Work Phone: [facility] 07-19-2022 14:30-0400 Diastolic blood pressure 44 mm[Hg] Debra Snow SQL DATA ANALYST Work Phone: [facility] 07-19-2022 14:30-0400 Heart rate 88 /min Debra Snow SQL DATA ANALYST Work Phone: [facility] 07-19-2022 14:30-0400 SaO2% (BldA) [Mass fraction] 96 % Debra Snow SQL DATA ANALYST Work Phone: [facility] Comment on above: [facility] 07-19-2022 14:30-0400 Systolic blood pressure 142 mm[Hg] Debra Snow SQL DATA ANALYST Work Phone: [facility] 07-08-2022 11:26-0400 Body height 162.6 cm Estrada Garcia MD Work Phone: [facility] 07-08-2022 11:26-0400 Body mass index (BMI) [Ratio] 39.07 kg/m2 Estrada Garcia MD Work Phone: [facility] 07-08-2022 11:26-0400 Body temperature 98.91 [degF] Estrada Garcia MD Work Phone: [facility] 07-08-2022 11:26-0400 Body weight 103.24 kg Estrada Garcia MD Work Phone: [facility] 07-08-2022 11:26-0400 Diastolic blood pressure 81 mm[Hg] Estrada Garcia MD Work Phone: [facility] 07-08-2022 11:26-0400 Heart rate 73 /min Estrada Garcia MD Work Phone: [facility] 07-08-2022 11:26-0400 Respiratory rate 18 /min Estrada Garcia MD Work Phone: [facility] 07-08-2022 11:26-0400 SaO2% (BldA) [Mass fraction] 97 % Estrada Garcia MD Work Phone: [facility] 07-08-2022 11:26-0400 Systolic blood pressure 119 mm[Hg] Estrada Garcia MD Work Phone: [facility] 06-29-2022 08:54-0400 Respiratory rate 18 /min Jaiden Bagley MD Work Phone: [facility] 06-29-2022 07:47-0400 Body temperature 98.01 [degF] Jaiden Bagley MD Work Phone: [facility] 06-29-2022 07:47-0400 Diastolic blood pressure 95 mm[Hg] Jaiden Bagley MD Work Phone: [facility] 06-29-2022 07:47-0400 Heart rate 79 /min Jaiden Bagley MD Work Phone: [facility] 06-29-2022 07:47-0400 SaO2% (BldA) [Mass fraction] 95 % Jaiden Bagley MD Work Phone: [facility] 06-29-2022 07:47-0400 Systolic blood pressure 173 mm[Hg] Jaiden Bagley MD Work Phone: [facility] 06-21-2022 17:00-0400 Body height 162.6 cm Jaiden Bagley MD Work Phone: [facility] 06-21-2022 17:00-0400 Body mass index (BMI) [Ratio] 39.82 kg/m2 Jaiden Bagley MD Work Phone: [facility] 06-21-2022 17:00-0400 Body weight 105.23 kg Jaiden Bagley MD Work Phone: [facility] 04-04-2022 11:29-0400 Body temperature 97.9 [degF] Jada Vargas MD Work Phone: [facility] 04-04-2022 06:00-0400 Heart rate 87 /min Jada Vargas MD Work Phone: [facility] 04-04-2022 06:00-0400 Respiratory rate 19 /min Jada Vargas MD Work Phone: [facility] 04-04-2022 06:00-0400 SaO2% (BldA) [Mass fraction] 99 % Jada Vargas MD Work Phone: [facility] 04-04-2022 03:50-0400 Body mass index (BMI) [Ratio] 40.64 kg/m2 Jada Vargas MD Work Phone: [facility] 04-04-2022 03:50-0400 Body weight 107.4 kg Jada Vargas MD Work Phone: [facility] 04-03-2022 23:00-0400 Diastolic blood pressure 93 mm[Hg] Jada Vargas MD Work Phone: [facility] 04-03-2022 23:00-0400 Systolic blood pressure 186 mm[Hg] Jada Vargas MD Work Phone: [facility] 03-01-2022 09:47-0400 Body mass index (BMI) [Ratio] 43.36 kg/m2 Jada Vargas MD Work Phone: [facility] 03-01-2022 09:47-0400 Body weight 114.58 kg Jada Vargas MD Work Phone: [facility] 03-01-2022 09:47-0400 Diastolic blood pressure 74 mm[Hg] Jada Vargas MD Work Phone: [facility] 03-01-2022 09:47-0400 Heart rate 90 /min Jada Vargas MD Work Phone: [facility] 03-01-2022 09:47-0400 Systolic blood pressure 142 mm[Hg] Jada Vargas MD Work Phone: [facility] 12-30-2021 10:43-0500 SaO2% (BldA) [Mass fraction] 94 % Estrada Garcia MD Work Phone: [facility] Comment on above: on room air after rest 12-30-2021 10:35-0500 Body mass index (BMI) [Ratio] 41.76 kg/m2 Estrada Garcia MD Work Phone: [facility] 12-30-2021 10:35-0500 Body temperature 98.29 [degF] Estrada Garcia MD Work Phone: [facility] 12-30-2021 10:35-0500 Body weight 110.36 kg Estrada Garcia MD Work Phone: [facility] 12-30-2021 10:35-0500 Diastolic blood pressure 68 mm[Hg] Estrada Garcia MD Work Phone: [facility] 12-30-2021 10:35-0500 Heart rate 107 /min Estrada Garcia MD Work Phone: [facility] 12-30-2021 10:35-0500 Systolic blood pressure 109 mm[Hg] Estrada Garcia MD Work Phone: [facility] 08-04-2021 14:09-0400 Body height 162.6 cm Mo [employer] SQL DATA ANALYST Work Phone: [facility] 08-04-2021 14:09-0400 Body mass index (BMI) [Ratio] 39.82 kg/m2 Mo [employer] SQL DATA ANALYST Work Phone: [facility] 08-04-2021 14:09-0400 Body weight 105.23 kg Mo [employer] SQL DATA ANALYST Work Phone: [facility] 08-04-2021 14:09-0400 Diastolic blood pressure 82 mm[Hg] Mo Professor [employer] Art [employer] SQL DATA ANALYST Work Phone: [facility] 08-04-2021 14:09-0400 Heart rate 110 /min Mo Powderly SQL DATA ANALYST Work Phone: [facility] 08-04-2021 14:09-0400 SaO2% (BldA) [Mass fraction] 93 % Mo Professor Of Art History SQL DATA ANALYST Work Phone: [facility] 08-04-2021 14:09-0400 Systolic blood pressure 138 mm[Hg] Mo Powderly SQL DATA ANALYST Work Phone: [facility] 04-14-2021 19:15-0400 Diastolic blood pressure 92 mm[Hg] Georgie Vázquez MD Work Phone: [facility] 04-14-2021 19:15-0400 Heart rate 78 /min Georgie Vázquez MD Work Phone: [facility] 04-14-2021 19:15-0400 Respiratory rate 16 /min Georgie Vázquez MD Work Phone: [facility] 04-14-2021 19:15-0400 SaO2% (BldA) [Mass fraction] 93 % Georgie Vázquez MD Work Phone: [facility] 04-14-2021 19:15-0400 Systolic blood pressure 160 mm[Hg] Georgie Vázquez MD Work Phone: [facility] 04-14-2021 15:19-0400 Body temperature 98.2 [degF] Georgie Vázquez MD Work Phone: [facility] 04-14-2021 15:10-0400 Body height 165.1 cm Georgie Vázquez MD Work Phone: [facility] 04-14-2021 15:10-0400 Body mass index (BMI) [Ratio] 39.94 kg/m2 Georgie Vázquez MD Work Phone: [facility] 04-14-2021 15:10-0400 Body weight 108.86 kg Georgie Vázquez MD Work Phone: [facility] 11-02-2020 13:24-0500 BMI (Body Mass Index) 36.61 kg/m2 [facility] 11-02-2020 13:24-0500 Body Temperature 98.91 [degF] [facility] 11-02-2020 13:24-0500 Body weight 99.79 kg [facility] 11-02-2020 13:24-0500 BP Diastolic 91 mm[Hg] [facility] 11-02-2020 13:24-0500 BP Systolic 175 mm[Hg] [facility] 11-02-2020 13:24-0500 Height 165.1 cm [facility] 11-02-2020 13:24-0500 Pulse (Heart Rate) 97 /min [facility] 11-02-2020 13:24-0500 Pulse Oximetry 97 % [facility] 11-02-2020 13:24-0500 Respiratory Rate 20 /min [facility] 09-15-2020 14:27-0500 BMI (Body Mass Index) 34.28 kg/m2 [facility] 09-15-2020 14:27-0500 Body weight 93.[address] [facility] 09-15-2020 14:27-0500 BP Diastolic 82 mm[Hg] [facility] 09-15-2020 14:27-0500 BP Systolic 147 mm[Hg] [facility] 09-15-2020 14:27-0500 Height 165.1 cm [facility] 09-15-2020 14:27-0500 Pulse (Heart Rate) 120 /min [facility] 09-15-2020 14:27-0500 Respiratory Rate 18 /min [facility] 05-07-2019 15:42-0400 Body Temperature 98.2 [degF] [facility] 05-07-2019 15:42-0400 BP Diastolic 77 mm[Hg] [facility] 05-07-2019 15:42-0400 BP Systolic 127 mm[Hg] [facility] 05-07-2019 15:42-0400 Pulse (Heart Rate) 107 /min [facility] 05-07-2019 15:42-0400 Pulse Oximetry 96 % [facility] 05-07-2019 15:42-0400 Respiratory Rate 14 /min [facility] 05-07-2019 15:15-0400 BMI (Body Mass Index) 34.28 kg/m2 Jose [facility] 05-07-2019 15:15-0400 Body weight 93.44 kg [facility] 05-07-2019 15:15-0400 Height 165.1 cm [facility] 04-10-2019 13:11-0400 BMI (Body Mass Index) 34.28 kg/m2 [facility] 04-10-2019 13:11-0400 Height 165.1 cm [facility] 04-10-2019 13:11-0400 Weight 93.44 kg [facility] 04-05-2019 13:35-0400 BMI (Body Mass Index) 34.28 kg/m2 Whitley [facility] 04-05-2019 13:35-0400 BP Diastolic 76 mm[Hg] [facility] 04-05-2019 13:35-0400 BP Systolic 145 mm[Hg] [facility] 04-05-2019 13:35-0400 Height 165.1 cm [facility] 04-05-2019 13:35-0400 Pulse (Heart Rate) 79 /min [facility] 04-05-2019 13:35-0400 Pulse Oximetry 93 % [facility] 04-05-2019 13:35-0400 Weight 93.44 kg [facility] 09-17-2018 16:56-0500 Body temperature 37.[address] [facility] Comment on above: Performed By: #### CBCWOD, PT, PTT, DDIM R, EDCTNI, NTPROBNP, CHEM8, LIPASE, CMETADD #### Unless otherwise noted, all testing performed by [facility] [place] [address] [place] [place], [place] [address] CLIA: [id number] Refuge Manager: Maurice Coello M.D. 07-04-2017 13:06-0400 BMI (Body Mass Index) 33.28 kg/m2 Vaibhav Naranjo [facility] Work Phone: 07-04-2017 13:06-0400 Height 165.1 cm Vaibhav Naranjo [facility] Work Phone: 07-04-2017 13:06-0400 Weight 90.72 kg Vaibhav Naranjo [facility] Work Phone: Encounters Encounter Date Encounter Type Care Provider Facility Start: 09-11-2025 End: 09-12-2025 Emergency department patient visit [facility] Start: 09-01-2025 End: 09-01-2025 ambulatory [facility] [place] Start: 08-28-2025 End: 08-28-2025 Telephone encounter Garland Kumar RD, [facility] Start: 08-27-2025 End: 08-27-2025 Telephone encounter Garland Kumar RD, [facility] Start: 08-11-2025 End: 08-11-2025 Emergency department patient visit PHYSICIAN [facility] Start: 08-07-2025 End: 08-07-2025 Telephone encounter Meliza Rust [facility] Start: 08-05-2025 End: 08-05-2025 Documentation procedure Garland Kumar RD, LD [facility] Comment on above: CMN and clinic notes securely faxed to [employer] @ Start: 07-23-2025 End: 07-23-2025 ambulatory ANDRE MARTINEZ [facility] Start: 07-23-2025 End: 07-23-2025 ambulatory EMMETT HYMAN [facility] Start: 07-23-2025 End: 07-23-2025 Office outpatient visit 40 minutes Emmett Hyman MD Work Phone: [facility] Comment on above: Follow Up (Medical) Start: 07-20-2025 Non-patient / Non-visit Dr. Vincent Hood MD -[facility] Work Phone: Start: 07-19-2025 Non-patient / Non-visit Dr. Mally Cano MD -[facility] Work Phone: Start: 07-18-2025 Non-patient / Non-visit Dr. Mally Cano MD -[facility] Work Phone: Start: 07-17-2025 ambulatory Jennifer Gordon [place] [facility] Start: 07-17-2025 End: 07-20-2025 Evaluation and management of inpatient Dr. Elana Deshpande DO -Progressive Care Unit Work Phone: Start: 07-11-2025 End: 07-11-[address] Jennifer Gordon MD Work Phone: -Sleep Lab Start: 07-11-2025 End: 07-11-2025 Patient encounter procedure BARBARA Black -Sleep Lab Work Phone: Start: 07-11-2025 End: 07-11-2025 ambulatory Colette Black Facility:[facility] Start: 07-09-2025 ambulatory [facility] Start: 06-26-2025 End: 06-26-[address] Jennifer Gordon MD Work Phone: -Laboratory [place] Start: 06-26-2025 End: 06-26-2025 Patient encounter procedure Mihaela Sipmson NP-C -[facility] Work Phone: Start: 06-26-2025 End: 06-26-2025 Patient encounter procedure Mihaela Simpson NP-C -[facility] Work Phone: Start: 06-26-2025 End: 06-26-[address] Jennifer Gordon MD Work Phone: -[facility] Start: 06-26-2025 End: 06-26-2025 ambulatory Jennifer Gordon Facility:[facility] Start: 06-24-2025 End: 06-24-[address] Jennifer Gordon MD Work Phone: -Pulmonary Services/Neurology Start: 06-24-2025 End: 06-24-2025 Patient encounter procedure BARBARA Black -Pulmonary Services/Neurology Work Phone: Start: 06-24-2025 End: 06-24-2025 ambulatory Colette Black Facility:[facility] Start: 06-17-2025 End: 06-17-2025 Patient encounter procedure FACTORY REPRESENTATIVE Colette Black -[facility] Work Phone: Start: 06-17-2025 End: 06-17-[address] Jennifer Gordon MD Work Phone: -[facility] Start: 06-17-2025 End: 06-17-2025 Telephone encounter Nikolai Gray [facility] Comment on above: Follow Up (Medical) Start: 06-11-2025 End: 06-11-2025 Telephone encounter Meliza Rust [facility] Start: 05-07-2025 End: 05-07-[address] Jennifer Gordon MD Work Phone: -Ultrasound [facility] Start: 05-07-2025 End: 05-07-[address] Jennifer Gordon MD -Ultrasound [facility] Work Phone: Start: 05-07-2025 End: 05-07-2025 ambulatory Jennifer Gordon Facility:[facility] Start: 05-02-2025 End: 05-02-2025 Telephone encounter Meaghan Valero [facility] Start: 04-30-2025 End: 04-30-2025 Office outpatient visit 25 minutes Cb Boudreaux MD Work Phone: [facility] Comment on above: NSVT (nonsustained v entricular tachycardia) (HCC) Start: 04-30-2025 End: 04-30-2025 ambulatory PHYSICIAN NO [facility] Start: 04-28-2025 ambulatory [facility] Start: 04-17-2025 End: 04-17-[address] Jennifer Gordon MD Work Phone: [facility] Work Phone: Start: 04-17-2025 End: 04-17-2025 Patient encounter procedure Sasha Heredia FACTORY REPRESENTATIVE-C -Cat Scan [facility] Work Phone: Start: 2025 End: [address] Jennifer Gordon MD -[facility] Work Phone: Start: 2025 End: 04-17-[address] Jennifer Gordon MD Work Phone: [facility] Work Phone: Start: 2025 End: 2025 ambulatory Jennifer Gordon Facility:[facility] Start: 04-07-2025 End: 04-07-2025 ambulatory PHYSICIAN [facility] Start: 04-04-2025 End: 04-04-2025 Patient encounter procedure BARBARA Black -[facility] Work Phone: Start: 04-04-2025 End: 04-04-[address] Jennifer Gordon MD Work Phone: [facility] Work Phone: Start: 04-03-2025 End: 04-03-[address] Cary Jacobsen MD -[facility] Work Phone: Start: 04-03-2025 End: 04-03-[address] Jennifer Gordon MD Work Phone: [facility] Work Phone: Start: 03-27-2025 End: 03-27-[address] Rusty Dozier MD -[facility] Work Phone: Start: 03-27-2025 End: 03-27-2025 ambulatory Jennifer Gordon Facility:[facility] Start: 03-05-2025 End: 06-15-2025 Telephone encounter Shaina Boykin MD Work Phone: [facility] Comment on above: Illness Start: 02-28-2025 ambulatory Cary Jacobsen Facility :[facility] Start: 02-27-2025 End: 02-27-[address] Melvin Oshea MD -[facility] Start: 02-27-2025 End: 02-27-2025 ambulatory Melvin Oshea Facility:[facility] Start: 02-27-2025 End: 02-27-2025 Patient encounter procedure Hui SANCHEZ -[facility] Work Phone: Start: 02-27-2025 End: 02-27-2025 ambulatory Hui Ventura Facility:[facility] Start: 02-25-2025 End: 02-25-[address] Cary Jacobsen MD -[facility] Work Phone: Start: 02-25-2025 End: 02-25-2025 ambulatory Cary Jacobsen Facility:[facility] Start: 02-13-2025 End: 02-18-2025 Evaluation and management of inpatient Astrid Sanders DO Work Phone: [facility] Start: 02-05-2025 End: 02-05-2025 Refill Julissa Parikh [facility] Comment on above: Refill Request (Dolj enrique ) Start: 02-03-2025 End: 02-03-[address] Jennifer Gordon MD Work Phone: [facility] Work Phone: Start: 02-03-2025 End: 02-03-2025 Patient encounter procedure Hui SANCHEZ -[facility] Work Phone: Start: 02-03-2025 ambulatory Flavia Shine Facility:[facility] Start: 02-03-2025 End: 02-03-2025 ambulatory Hui Ventura Facility:[facility] Start: 01-21-2025 End: 01-21-[address] Cary Jacobsen MD -[facility] Work Phone: Start: 01-21-2025 End: 01-21-2025 ambulatory Jennifer Gordon Facility:[facility] Start: 01-13-2025 End: 01-13-[address] Jennifer Gordon MD Work Phone: [facility] Work Phone: Start: 01-13-2025 End: 01-13-[address] Rusty Dozier MD -[facility] Work Phone: Start: 01-13-2025 End: 01-13-2025 ambulatory Jennifer Gordon Facility:[facility] Start: 01-06-2025 End: 01-06-2025 Patient encounter procedure Hui SANCHEZ -[facility] Work Phone: Start: 01-06-2025 End: 01-06-2025 ambulatory Hui Whitehead Facility:[facility] Start: 01-01-2025 End: 01-01-2025 Emergency department patient visit Dr. Teddy Rust MD -Emergency Department Work Phone: Start: 12-26-2024 End: 12-26-[address] Rusty Dozier MD -[facility] Work Phone: Start: 12-26-2024 End: 12-26-2024 ambulatory Jennifer Heidi Facility:[facility] Start: 11-12-2024 End: 11-12-2024 Emergency department patient visit PHYSICIAN NO [facility] Start: 10-25-2024 ambulatory PHYSICIAN NO [facility] Start: 10-23-2024 End: 10-23-2024 Orders Only Cb Boudreaux MD Work Phone: [facility] Comment on above: Ventricular tachycar liv (HCC) (Primary Dx); Palpitations; NSVT (nonsustained ventricular tachycardia) (HCC) Start: 10-16-2024 End: 10-16-[address] Jennifer Gordon MD -[facility] Work Phone: Start: 10-16-2024 End: 10-16-2024 ambulatory Jennifer Gordon Facility:[facility] Start: 10-15-2024 End: 10-15-2024 Telephone encounter Cecille Johnson LPN [facility] Comment on above: Medication Prior Aut horization (General) (Dojolvi) Start: 09-21-2024 End: 09-25-2024 Evaluation and management of inpatient Sally Talbot MD Work Phone: [facility] Intermediate Start: 09-18-2024 End: 09-18-2024 Office outpatient new 45 minutes Provider Not In System [facility] Comment on above: Ventricular tachycar liv (HCC); Palpitations; NSVT (nonsustained ventricular tachycardia) (HCC) Start: 09-18-2024 End: 09-18-2024 ambulatory PHYSICIAN NO [facility] Start: 09-16-2024 End: 09-16-2024 Orders Only Cb Boudreaux MD Work Phone: [facility] Comment on above: NSVT (nonsustained v entricular tachycardia) (HCC) (Primary Dx) Start: 09-02-2024 End: 09-03-2024 Evaluation and management of inpatient Thee Salmeron MD Work Phone: [facility] Start: 09-02-2024 End: 09-02-2024 Orders Only Rivas Jules MD Work Phone: [facility] Orthopedic [facility] Sports Medicine Comment on above: Pain (Primary Dx) Start: 08-21-2024 ambulatory JONATHAN RUTHERFORD [facility] Ambulatory Start: 08-14-2024 End: 08-14-2024 Transcribe Orders Provider Not In System [facility] Start: 03-06-2024 Refill Raya Dutton MA Work Phone: [facility] Comment on above: Medication Refill (L evocarnitine ) Start: 02-29-2024 End: 02-29-[address] Jennifer Gordon Work Phone: [facility] Work Phone: Start: 02-29-2024 End: 02-29-[address] Jennifer Gordon Work Phone: [facility] Internal Medicine Work Phone: Start: 02-21-2024 End: 02-21-[address] Jennifer Gordon Work Phone: [facility] Work Phone: Start: 02-21-2024 End: 02-21-[address] Jennifer Gordon Work Phone: [facility]-Pulmonary Services/Neurology Work Phone: Start: 02-07-2024 Non-patient / Non-visit Dr. Stevens Work Phone: [facility] Start: 01-29-2024 Refill Cecille Johnson LPN [facility] Comment on above: Medication Refill (D ojolvi) Start: 01-15-2024 End: 01-15-[address] Jennifer Gordon Work Phone: [facility] Pulmonary Medicine Work Phone: Start: 01-03-2024 End: 01-03-[address] Jennifer Gordon Work Phone: [facility] Work Phone: Start: 01-03-2024 End: 01-03-[address] Jennifer Gordon Work Phone: [facility] Work Phone: Start: 12-29-2023 End: 12-29-[address] Jennifer Gordon Work Phone: [facility] Work Phone: Start: 12-29-2023 End: 12-29-[address] Jennifer Gordon Work Phone: [facility]-Laboratory Work Phone: Start: 12-11-2023 End: 12-11-[address] Jennifer Gordon Work Phone: [facility] Work Phone: Start: 12-11-2023 End: 12-11-[address] Jennifer Gordon Work Phone: [facility] Internal Medicine Work Phone: Start: 11-28-2023 End: 11-28-[address] Jennifer Gordon Work Phone: [facility] Work Phone: Start: 11-28-2023 End: 11-28-[address] Jennifer Gordon Work Phone: [facility] Neurology Work Phone: Start: 10-17-2023 Telephone encounter Meliza Rust [facility] Start: 10-17-2023 End: 10-17-[address] Jennifer Gordon Work Phone: [facility] Work Phone: Start: 10-16-2023 End: 10-16-2023 Office outpatient visit 15 minutes Rivas Jules MD Work Phone: [facility] Comment on above: Trigger finger of le ft thumb (Primary Dx) Start: 10-06-2023 Orders Only Tawanna Verma LPN [facility] Comment on above: Pain (Primary Dx) Start: 07-03-2023 End: 07-03-[address] Jennifer Gordon Work Phone: [facility] Work Phone: Start: 07-03-2023 End: 07-03-[address] Jennifer Gordon Work Phone: [facility] Work Phone: Start: 06-05-2023 Non-patient / Non-visit Dr. Ra ludy Dozier Work Phone: [facility] Start: 06-05-2023 End: 06-05-[address] Jennifer Gordon Work Phone: [facility] Work Phone: Start: 06-05-2023 End: 06-05-[address] Rusty Dozier Work Phone: [facility]-Laboratory, [facility] Start: 06-05-2023 End: 06-05-[address] Rusty Dozier Work Phone: [facility] Internal Medicine Work Phone: Start: 06-01-2023 End: 06-01-[address] Rusty Dozier Work Phone: [facility] Work Phone: Start: 06-01-2023 End: 06-01-[address] [facility] Start: 05-01-2023 Non-patient / Non-visit Dr. Ra ludy Dozier Work Phone: [facility] Start: 05-01-2023 End: 05-01-[address] Rusty Dozier Work Phone: [facility] Work Phone: Start: 05-01-2023 End: 05-01-[address] Rust[facility] Dozier [facility] Start: 04-25-2023 End: 04-25-2023 Non-patient / Non-visit Dr. Rusty Dozier Work Phone: [facility] Work Phone: Start: 04-25-[address] Andrew Dozier [facility] Start: 04-18-2023 End: 04-18-[address] Rusty Dozier Work Phone: [facility] Work Phone: Start: 03-20-2023 Non-patient / Non-visit Dr. Ra ludy Dozier Work Phone: [facility] Work Phone: Start: 02-27-2023 Telephone encounter Jada Newton [facility] Comment on above: FOLLOW-UP Start: 02-24-2023 End: 02-24-[address] 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 Work Phone: Start: 02-07-2023 End: 02-07-2023 Patient encounter procedure FACTORY REPRESENTATIVE-C Jonathan Rutherford FACTORY REPRESENTATIVE Work Phone: [facility] Start: 02-07-2023 End: 02-07-2023 Patient encounter procedure FACTORY REPRESENTATIVE-C Jonathan Rutherford FACTORY REPRESENTATIVE Work Phone: [facility] Neurology Start: 12-28-2022 Non-patient / Non-visit FACTORY REPRESENTATIVE-C T yanet Rutherford FACTORY REPRESENTATIVE Work Phone: [facility] Start: 12-28-2022 End: 12-28-2022 ambulatory FACTORY REPRESENTATIVE-C Jonathan Rutherford FACTORY REPRESENTATIVE Work Phone: [facility] Work Phone: Start: 12-28-2022 End: 12-28-2022 Patient encounter procedure FACTORY REPRESENTATIVE-C Jonathan Rutherford FACTORY REPRESENTATIVE Work Phone: [facility] Start: 12-14-2022 Orders Only Suzan Gordon MD Work Phone: [facility] Start: 12-07-2022 End: 12-07-2022 Patient encounter procedure FACTORY REPRESENTATIVE-C Jonathan Rutherford FACTORY REPRESENTATIVE Work Phone: [facility] [place] Start: 12-06-2022 Telephone encounter Rocio Nickerson [facility] Comment on above: Medication Review [facility] (Dojolivi) Start: 12-05-2022 Documentation procedure Khadra Garcia [facility] Comment on above: Refill request for D OJOLVI. Start: 12-01-2022 End: 12-01-2022 ambulatory FACTORY REPRESENTATIVE-C Jonathan Rutherford FACTORY REPRESENTATIVE Work Phone: [facility] Work Phone: Start: 12-01-2022 End: 12-01-2022 Patient encounter procedure FACTORY REPRESENTATIVE-C Jonathan Rutherford FACTORY REPRESENTATIVE Work Phone: [facility] [place] Start: 12-01-2022 End: 12-01-2022 Patient encounter procedure FACTORY REPRESENTATIVE-C Jonathan Rutherford FACTORY REPRESENTATIVE Work Phone: [facility] Internal Medicine Start: 11-23-2022 Telephone encounter Jada Glez [facility] Comment on above: Change Appointment Start: 10-06-2022 End: 10-06-[address] Rusty Dozier Work Phone: [facility] Work Phone: Start: 10-06-2022 End: 10-06-[address] Rusty Dozier Work Phone: [facility] Start: 10-06-2022 End: 10-06-[address] Rusty Dozier Work Phone: [facility] Neurology Start: 08-30-2022 Telephone encounter Shakira Cline MD Work Phone: [facility] Start: 07-19-2022 End: 07-19-2022 Office outpatient visit 15 minutes Debra Adamson RUIZ Work Phone: [facility] Gastro[facility]ology Comment on above: Pain of upper abdome n (Primary Dx); Nausea; Diarrhea, unspecified type Start: 07-08-2022 End: 07-08-2022 Office outpatient visit 25 minutes Estrada Garcia MD Work Phone: [facility] Comment on above: COPD exacerbation (H CC) (Primary Dx); Screening for lung cancer Start: 06-21-2022 Critical care ill/in jured patient init 30-74 min Jaiden Bagley MD Work Phone: [facility] Start: 06-21-2022 End: 06-29-2022 Evaluation and management of inpatient Jaiden Bagley MD Work Phone: [facility] Start: 03-30-2022 End: 04-04-2022 Evaluation and management of inpatient Jada Vargas MD Work Phone: [facility] [place] [facility] [place] Start: 03-28-2022 Documentation procedure Jyoti Thomas on [facility] Start: 03-21-2022 Documentation procedure Jyoti Thomas on [facility] Start: 03-08-2022 Orders Only Jyoti Reeves [facility] Comment on above: Rectal prolapse (Sarah aye Dx); Preoperative testing; Abdominal pain, unspecified abdominal location Start: 03-08-2022 Patient encounter status Jyoti Patel son [facility] Start: 03-07-2022 Orders Only Jyoti Reeves [facility] Comment on above: Rectal prolapse (Sarah aye Dx) Start: 03-01-2022 [facility] Jada Vargas MD Work Phone: [facility] Start: 03-01-2022 End: 03-01-2022 Office outpatient visit 10 minutes Jada Vargas MD Work Phone: [facility] Comment on above: Rectal prolapse Start: 01-07-2022 [facility] Americaanibal Stone [facility] Comment on above: Hx of colonic polyps (Primary Dx) Start: 01-07-2022 Documentation procedure America quiles [facility] Comment on above: Hx of colonic polyps (Primary Dx) Start: 12-30-2021 End: 12-30-2021 Office outpatient new 45 minutes Estrada Garcia MD Work Phone: [facility] Pulmonary Physicians Comment on above: Screening for lung c ancer (Primary Dx); Chronic obstructive pulmonary disease, unspecified COPD type (HCC) Start: 08-04-2021 End: 08-04-2021 Office outpatient new 30 minutes Chepe Yin CNP Work Phone: [facility] Th[facility]at Phys[facility] Comment on above: Dizzy (Primary Dx); Positional lightheadedness; Chronic rhinitis; Dysfunction of Eustachian tube, unspecified laterality Start: 07-29-2021 Transcribe Orders Lilliana dennison [facility] Comment on above: Rectal prolapse (Sarah aye Dx) Start: 07-22-2021 Transcribe Orders Alan Saba MD Work Phone: [facility] Comment on above: Dizzy (Primary Dx) Start: 04-23-2021 Patient encounter procedure Elana Westbrook PT Work Phone: [facility] Work Phone: Start: 2021 PTRECHADUL, Provider : Elana Westbrook, Status: Pen, Time: 4:00 PM February STEAMFITTER SUPERVISOR Work Phone: [facility] Work Phone: Start: 04-14-2021 Patient encounter procedure February David STEAMFITTER SUPERVISOR Work Phone: [facility] [place] Work Phone: Start: 04-14-2021 [id number], Provider : Anjana Hernandez, Status: Pen, Time: 4:30 PM February David STEAMFITTER SUPERVISOR Work Phone: [facility] Work Phone: Start: 04-14-2021 End: 04-14-2021 Emergency department patient visit Georgie Vázquez MD Work Phone: [facility] Emergency Department Start: 04-12-2021 Patient encounter procedure February David STEAMFITTER SUPERVISOR Work Phone: [facility] Work Phone: Start: 04-09-2021 Patient encounter procedure Eli Benjamin STEAMFITTER SUPERVISOR Work Phone: [facility] Work Phone: Start: 03-31-2021 PTFUADULT4, Provider : River Sweeney, Status: Pen, Time: 4:15 PM February David STEAMFITTER SUPERVISOR Work Phone: [facility] Work Phone: Start: 03-29-2021 Patient encounter procedure February David STEAMFITTER SUPERVISOR Work Phone: [facility] Work Phone: Start: 01-06-2021 End: 01-06-2021 Orders Only Sheri Bergeron Work Phone: [facility] Start: 11-24-2020 End: 11-24-2020 Patient encounter procedure Rusty Dozier Work Phone: [facility] Neurological Physicians Comment on above: Polyneuropathy Start: 11-09-2020 End: 11-09-2020 Subsequent hospital visit by physician Flori Rodrigues Work Phone: [facility] Comment on above: Pain Start: 11-09-2020 End: 11-09-2020 Office outpatient new 30 minutes Flori Risavenecia Rodrigues Work Phone: [facility] Orthopedic [facility] Sports Medicine Comment on above: Primary osteoarthrit is of right knee (Primary Dx) Start: 11-02-2020 End: 11-02-2020 Emergency department patient visit Mars Christiansen Work Phone: [facility] Emergency Department Comment on above: Right knee pain, uns pecified chronicity (Primary Dx) Start: 09-15-2020 End: 09-15-2020 Subsequent hospital visit by physician Rivas Jules Work Phone: [facility] Comment on above: Pain Start: 09-15-2020 End: 09-15-2020 Office outpatient new 30 minutes Jonathan Rutherford Work Phone: [facility] Comment on above: Chronic right should er pain Start: 05-15-2020 End: 05-15-2020 Subsequent hospital visit by physician Elana Pena Work Phone: [facility] Heart & Vascular Phys[facility] Comment on above: Claudication of lowe r extremity (HCC) Start: 05-07-2019 End: 05-07-2019 Emergency department patient visit Jose Long Work Phone: [facility] Emergency Department Comment on above: Right leg pain (Prim samantha Dx); Chronic pain syndrome; Bursitis, unspecified site Start: 05-07-2019 End: 05-07-2019 Subsequent hospital visit by physician Whitley Martinez Work Phone: [facility] Comment on above: Abnormal electrocard iogram ; Cardiomyopathy, unspecified type (HCC); Hypertension, unspecified type Start: 04-10-2019 End: 04-10-2019 Patient encounter procedure Rusty Dozier Work Phone: [facility] MRI Comment on above: Right hip pain Start: 04-05-2019 End: 04-05-2019 Office outpatient new 45 minutes Oscar Vinson Work Phone: [facility] Comment on above: Coronary artery dise ase, angina presence unspecified, unspecified vessel or lesion type, unspecified whether chitimacha or transplanted heart; Cardiomyopathy, unspecified type (HCC); Sleep apnea, unspecified type; Chronic obstructive pulmonary disease, unspecified COPD type (HCC); Hypertension, unspecified type; Abnormal electrocardiogram ; Chest pain, unspecified type; 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[facility]) Start: 02-13-2019 Patient encounter procedure Facility:[id number] Start: 01-23-2019 Patient encounter procedure Facility:[facility] Start: 01-14-2019 Patient encounter procedure Facility:[facility] Start: 11-29-2018 End: 12-01-2018 Evaluation and management of inpatient Tom Nieves Facility:[place] Start: 10-10-2018 Patient encounter procedure Jonathan Rutherford Facility:[place] Start: 09-17-2018 Patient encounter procedure Oscar Vinson Facility:[place] Start: 07-11-2018 End: 07-11-2018 Patient encounter procedure Tyshawn Santos Facility:[place] Start: 07-02-2018 End: 07-02-2018 Patient encounter [facility] Start: 07-02-2018 Patient encounter procedure Bety Hernandez Facility:[place] Start: 07-02-2018 End: 07-02-2018 Patient encounter Andre Martinez Work Phone: [facility] Start: 06-22-2018 Patient encounter procedure Kailee Louis Facility:[place] Start: 06-20-2018 End: 06-22-2018 Patient encounter procedure Tom Nieves Facility:[place] Start: 05-28-2018 Patient encounter procedure Vaibhav Naranjo Facility:[place] Start: 05-18-2018 Patient encounter procedure Vaibhav Naranjo Facility:[place] Start: 02-05-2018 Patient encounter procedure Andre Sernaada Facility:[place] Start: 02-05-2018 End: 02-05-2018 Ambulatory Andre Martinez Work Phone: [facility] Start: 01-29-2018 End: 01-30-2018 Patient encounter procedure Jossie Alcazar Facility:[place] Start: 01-12-2018 End: 01-12-2018 Patient encounter [facility] Start: 01-12-2018 End: 01-12-2018 Ambulatory Bety Hernandez Work Phone: [facility] Start: 11-02-2017 End: 11-02-2017 Ambulatory ELANA PENA Facility:[facility] Start: 09-15-2017 End: 09-15-2017 Ambulatory Elana Pena Work Phone: [facility] Start: 08-16-2017 End: 08-16-2017 Ambulatory Bety Hernandez Work Phone: [facility] Start: 07-05-2017 End: 07-05-2017 Ambulatory Bety Hernandez Work Phone: [facility] Start: 07-04-2017 Patient encounter Vaibhav Naranjo Work Phone: [facility] Start: 08-30-2016 End: 08-30-2016 Ambulatory Brittany Rushing Work Phone: [facility] Start: 08-24-2016 End: 08-24-2016 Telephone encounter Brittany Rushing Work Phone: [facility] Comment on above: Results Procedures Date Procedure Procedure Detail Performing Clinician Start: 07-23-2025 Blood count hemoglobin EMMETT HYMAN Start: 07-23-2025 Follow-up visit Follow Up (Medical) EMMETT HYMAN Start: 07-20-[address] Jennifer Gordon MD Work Phone: Start: 07-19-2025 Serum inorganic phos phate measurement Dr. Jennifer Gordon MD Work Phone: Start: 07-18-2025 Urnls dip stick/tabl et reagent auto microscopy Dr. Jennifer Gordon MD Work Phone: Start: 07-17-[address] Jennifer [...] Work Phone: Start: 02-18-2025 Glucose measurement Gen [facility] Work Phone: Start: 02-17-2025 Glucose measurement Gen [facility] Work Phone: Start: 02-17-2025 Glucose measurement Gen [facility] Work Phone: Start: 02-17-2025 Basic metabolic pane l calcium total Olga Russell MD Work Phone: Start: 02-17-2025 Glucose measurement Gen jonatan [facility] Work Phone: Start: 02-16-2025 Glucose measurement Gen jonatan [facility] Work Phone: Start: 02-16-2025 Glucose measurement Gen jonatan [facility] Work Phone: Start: 02-16-2025 Glucose measurement Gen jonatan [facility] Work Phone: Start: 02-16-2025 Radiologic exam ches t single view Olga Russell MD Work Phone: Start: 02-16-2025 Natriuretic peptide Afia Russell MD Work Phone: Start: 02-16-2025 Ecg routine ecg w/le ast 12 lds w/i&r Astrid S Sanders DO Work Phone: Start: 02-16-2025 Glucose measurement Gen jonatan [facility] Work Phone: Start: 02-16-2025 Basic metabolic pane l calcium total Olga Russell MD Work Phone: Start: 02-15-2025 Iadna-dna/rna gi pth gn multiplex probe tq 6-11 Olga Russell MD Work Phone: Start: 02-15-2025 Basic metabolic pane l calcium total Olga Russell MD Work Phone: Start: 02-15-2025 End: 02-15-2025 Glucose measurement Generic [facility] Work Phone: Start: 02-14-2025 End: 02-14-2025 Electrocardiogram Generic [facility] Work Phone: Start: 02-14-2025 Basic metabolic pane l calcium total Susan Thakur MD Work Phone: Start: 02-14-2025 Iadna s aureus methi cillin resist amp probe tq Andreeluiz Raineshens [facility],PharmD Start: 02-13-2025 Assay of troponin quantitative Susan Thakur MD Work Phone: Start: 02-13-2025 Culture bacterial quanttative colony count urine Astrid Sanders DO Work Phone: Start: 02-13-2025 Ecg routine ecg w/le ast 12 lds w/i&r Astrid Sanders DO Work Phone: Start: 02-13-2025 Assay of troponin quantitative Astrid Sanders DO Work Phone: Start: 02-13-2025 Culture bacterial bl ood aerobic w/id isolates Astrid Sanders DO Work Phone: Start: 02-13-2025 Ct [...] Basic metabolic pane l calcium total Astrid Sanders DO Work Phone: Start: 02-13-2025 GOODEN TOP Astrid Sanders DO Work Phone: Start: 02-13-2025 LAVENDER TOP Astrid S Sanders DO Work Phone: Start: 02-13-2025 LIGHT BLUE TOP Astrid Sanders DO Work Phone: Start: 02-13-2025 MINT GREEN TOP Astrid Sanders DO Work Phone: Start: 02-13-2025 RAINBOW DRAW Astrid Sanders DO Work Phone: Start: 02-13-2025 Ecg routine ecg w/le ast 12 lds w/i&r Astrid Sanders DO Work Phone: Start: 02-03-2025 MRI of cervical spine Krzysztof Gordon MD Work Phone: Start: 01-21-2025 Plain X-ray of shoulder Dr. Jennifer Gordon MD Work Phone: Start: 01-13-2025 MRI of lumbar spine Dr. Jennifer Gordon MD Work Phone: Start: 01-06-2025 X-ray of cervical spine Dr. Jennifer Gordon MD Work Phone: Start: 09-23-2024 Echo tthrc r-t 2d w/wom-mode compl spec&colr d Chanel Larson MD Work Phone: Start: 09-23-2024 Comprehensive metabo lic panel Chanel Larson MD Work Phone: Start: 09-22-2024 Electrocardiogram Gener ic [facility] Work Phone: Start: 09-22-2024 Assay of troponin quantitative Norman Mejía SQL DATA ANALYST Work Phone: Start: 09-22-2024 Basic metabolic pane [...] 09-03-2024 Basic metabolic pane l calcium total Ahmed Mohamed Mosalem MD Work Phone: Start: 09-02-2024 Electrocardiogram Gener ic [facility] Work Phone: Start: 09-02-2024 Assay of [...] Verma LPN Start: 06-29-2022 Glucose measurement Gen [facility] Work Phone: Start: 06-29-2022 End: 06-29-2022 Renal function panel Sheri Hale MD Work Phone: Start: 06-28-2022 Glucose measurement Gen [facility] Work Phone: Start: 06-28-2022 Glucose measurement Gen [facility] Work Phone: Start: 06-28-2022 Glucose measurement Gen [facility] Work Phone: Start: 06-28-2022 Glucose measurement Gen [facility] Work Phone: Start: 06-28-2022 Comprehensive metabo lic panel Sheri Hale MD Work Phone: Start: 06-28-2022 Hepatic function panel Leodan Geronimo MD Work Phone: Start: 06-28-2022 Tissue transglutamin ase IgA measurement Nessa Jay SQL DATA ANALYST Work Phone: Start: 06-27-2022 Glucose measurement Gen [facility] Work Phone: Start: 06-27-2022 Glucose measurement Gen [facility] Work Phone: Start: 06-27-2022 Glucose measurement Gen [facility] Work Phone: Start: 06-27-2022 Renal function panel John Hale MD Work Phone: Start: 06-26-2022 Glucose measurement Gen [facility] Work Phone: Start: 06-26-2022 Glucose measurement Gen [facility] Work Phone: Start: 06-26-2022 Glucose measurement Gen [facility] Work Phone: Start: 06-26-2022 Glucose measurement Gen [facility] Work Phone: Start: 06-26-2022 Renal function panel John Hale MD Work Phone: Start: 06-25-2022 Glucose measurement Gen [facility] Work Phone: Start: 06-25-2022 Glucose measurement Gen [facility] Work Phone: Start: 06-25-2022 SARS-CoV-2 (COVID-19 ) RNA [Presence] in Respiratory specimen by CATRINA with probe detection Sheri Hale MD Work Phone: Start: 06-25-2022 Radiologic exam ches t single view Sheri Hale MD Work Phone: Start: 06-25-2022 Glucose measurement Gen [facility] Work Phone: Start: 06-25-2022 Glucose measurement Gen [facility] Work Phone: Start: 06-25-2022 Renal function panel John Hale MD Work Phone: Start: 06-24-2022 Glucose measurement Gen [facility] Work Phone: Start: 06-24-2022 Glucose measurement Gen [facility] Work Phone: Start: 06-24-2022 Glucose measurement Gen [facility] Work Phone: Start: 06-24-2022 Assay of troponin quantitative Sheri Hale MD Work Phone: Start: 06-24-2022 Radiologic exam ches t single view Sheri Hale MD Work Phone: Start: 06-24-2022 Ecg routine ecg w/le ast 12 lds trcg only w/o i&r Sheri Hale MD Work Phone: Start: 06-24-2022 Renal function panel John Hale MD Work Phone: Start: 06-24-2022 Glucose measurement Gen [facility] Work Phone: Start: 06-23-2022 Glucose measurement Gen [facility] Work Phone: Start: 06-23-2022 Glucose measurement Gen [facility] Work Phone: Start: 06-23-2022 Level iv surg pathol ogy gross&microscopic exam Tyshawn Santos MD Work Phone: Start: 06-23-2022 Sigmoidoscopy Tyshawn Santos MD Work Phone: Start: 06-23-2022 End: 06-23-2022 SIGMOIDOSCOPY FLEXIBLE Tyshawn Santos MD Work Phone: Start: 06-23-2022 Glucose measurement Gen [facility] Work Phone: Start: 06-23-2022 Glucose measurement Gen [facility] Work Phone: Start: 06-23-2022 Basic metabolic pane l calcium total Kailee Louis SQL DATA ANALYST Work Phone: Start: 06-22-2022 Glucose measurement Gen [facility] Work Phone: Start: 06-22-2022 Glucose measurement Gen [facility] Work Phone: Start: 06-22-2022 Glucose measurement Gen [facility] Work Phone: Start: 06-22-2022 Glucose measurement Gen [facility] Work Phone: Start: 06-21-2022 Glucose measurement Gen [facility] Work Phone: Start: 06-21-2022 Glucose measurement Gen [facility] Work Phone: Start: 06-21-2022 Assay [...] Basic metabolic pane l calcium total Tatiana Mccoy Butt PA-C Work Phone: Start: 03-31-2022 Glucose measurement William Vargas MD Work Phone: Start: 03-31-2022 Glucose measurement William Vargas MD Work Phone: Start: 03-31-2022 End: 03-31-2022 Ecg routine ecg w/least 12 lds trcg only w/o i&r Grant Hollis Archibald DO Work Phone: Start: 03-31-2022 Glucose measurement William Vargas MD Work Phone: Start: 03-31-2022 Radiologic exam ches t 2 views Tatiana Nadine Ritchieen PA-C Work Phone: Start: 03-31-2022 Glucose measurement William Vargas MD Work Phone: Start: 03-31-2022 Basic metabolic pane l calcium total Tatiana Mckeonn Butt PA-C Work Phone: Start: 03-31-2022 Adult depression scr eening assessment Estrada Garcia MD Work Phone: Start: 03-30-2022 Assay of troponin quantitative Serina Meyers MD Work Phone: Start: 03-30-2022 Ecg routine ecg w/le ast 12 lds w/i&r Pet Care Worker Generic Start: 03-30-2022 Glucose measurement William Vargas MD Work Phone: Start: 03-30-2022 Glucose measurement William Vargas MD Work Phone: Start: 03-30-2022 End: 03-30-2022 ALTEMEIER PROCEDURE Jada Vargas MD Work Phone: Start: 03-30-2022 Blood typing serologic abo Tatiana Nadine Butt PA-C Work Phone: Start: 03-30-2022 Thromboplastin time partial [...] Radiologic exam knee complete 4/more views Flori Ragsdalexu Work Phone: Start: 11-02-2020 Dup-scan xtr veins [...] Phone: Start: 05-07-2019 LIGHT BLUE TOP Jose Mc Ethan Work Phone: Start: 05-07-2019 MINT GREEN TOP Jose Alexandro Ethan Work Phone: Start: 05-07-2019 RAINBOW DRAW Jose Joselin edith Revill Work Phone: Start: 05-07-2019 Echocardiography Whitley Martinez Work Phone: Start: 04-05-2019 12 lead ECG Whitley shay Work Phone: Start: 11-27-2018 End: 11-27-2018 Microscopic examination of blood, culture Oscar Vinson Comment on above: Performed By: #### C BCWOD, PT, PTT, DDIMR, EDCTNI, NTPROBNP, CHEM8, LIPASE, CMETADD #### Unless otherwise noted, all testing performed by [facility] [address] [address] [place] [address] CLIA: [id number] Refuge Manager: Maurice Coello M.D. Start: 07-02-2018 End: 07-02-2018 25 hydroxy includes fractions if performed Andre Martinez Work Phone: Start: 07-02-2018 End: 07-02-2018 Albumin serum plasma/whole blood Andre Martinez Work Phone: Start: 07-02-2018 End: 07-02-2018 Assay of phosphorus inorganic Andrenakul Martinez Work Phone: Start: 07-02-2018 End: 07-02-2018 Calcium total Andrenakul Martinez Work Phone: Start: 07-02-2018 End: 07-02-2018 Electrolyte panel Andre Martinez Work Phone: Start: 07-02-2018 End: 07-02-2018 Hemoglobin and Hematocrit panel - Blood Andre Martinez Work Phone: Start: 07-02-2018 End: 07-02-2018 [facility] - BUN AND CREATININE Andre Martinez Work Phone: Start: 07-02-2018 End: 07-02-2018 [facility] - PARATHYROID HORMONE Andre Martinez Work Phone: Start: 07-02-2018 End: 07-02-2018 Assay of thyroid stimulating hormone tsh Bety Hernandez Work Phone: Start: 07-02-2018 End: 07-02-2018 [facility] - PROTEIN PANEL, URINE Andre Martinez Work Phone: Start: 01-29-2018 Microscopic examinat ion of blood, culture Oscar Vinson Comment on above: Performed By: #### C BCWOD, PT, PTT, DDIMR, EDCTNI, NTPROBNP, CHEM8, LIPASE, CMETADD #### Unless otherwise noted, all testing performed by [place] [address] CLIA: [id number] Refuge Manager: Maurice Coello M.D. Start: 07-05-2016 Mammography Whitley Cobb my Plan of Treatment Date Care Activity Detail Author Start: 2033 RSV Immunization (1 - 1-dose 75+ series) RSV Immunization (1 - 1-dose 75+ series) [facility] Start: 02-18-2032 Screening for malignant neoplasm of colon [facility] Start: 06-23-2027 Screening for malignant neoplasm of colon Flexible sigmoidoscopy [facility] Start: 02-17-2027 Screening for malignant neoplasm of colon [facility] Start: 02-18-2026 Depression screening using PHQ-9 (Patient Health Questionnaire 9) score Depression Screening/Follow-Up (PHQ-2/9) [facility] Start: 02-18-2026 eGFR - Kidney Disease eGFR - Kidney Disease [facility] Start: 02-13-2026 Screening for malignant neoplasm of lung Low-dose CT Lung Cancer Screen [facility] Start: 09-23-2025 Urine screening for protein eGFR - Kidney Disease [facility] Start: 09-03-2025 Urine screening for protein eGFR - Kidney Disease [facility] Start: 09-02-2025 Urine screening for protein eGFR - Kidney Disease [facility] Start: 07-23-2025 End: 07-23-2026 ACYLCARNITINES, QUANTITATIVE, PLASMA & SERUM ACYLCARNITINES, QUANTITATIVE, PLASMA & SERUM Lab Routine CPT2 deficiency Expected: 07/23/2025 (Approximate), Expires: 07/23/2026 [facility] Work Phone: Comment on above: Expected: 07/23/2025 (Approximate), Expi res: 07/23/2026 Start: 07-20-[address]25 Patient discharge [facility] Start: 07-18-2025 Continuous positive airway pressure ventilation treatment [facility] Start: 07-18-2025 Following clinical pathway protocol [facility] Start: 07-18-2025 Patient referral to dietitian [facility] Start: 07-17-2025 Assessment of risk of venous thromboembolism [facility] Start: 07-17-2025 Inhalation therapy procedure [facility] Start: 07-17-2025 Insertion of catheter into peripheral vein [facility] Start: 07-17-2025 Measuring intake and output [facility] Start: 07-17-[address] [facility] Start: 07-17-2025 Providing care according to standard [facility] Start: 07-17-2025 Provision of activity privileges [facility] Start: 07-17-2025 Referral for physical therapy [facility] Start: 07-17-2025 Referral [facility] occupational therapist [facility] [facility] Start: 07-17-2025 Referral to service [facility] Start: 07-17-[address] [facility] Start: 07-17-2025 Urinalysis complete panel - Urine [facility] Start: 07-17-2025 Verification routine [facility] Start: 07-17-2025 Admission procedure [facility] Start: 07-17-2025 Hospital admission, emergency, from emergency room, medical nature [facility] Start: 07-17-[address] [facility] Start: 07-07-2025 COVID-19 Vaccine ( season) COVID-19 Vaccine ( season) [facility] Start: 07-07-2025 Influenza vaccination Influenza Vaccine (#1) [facility] Start: 07-04-[address] [facility] Start: 06-11-2025 End: 06-11-2025 Patient encounter procedure 06/11/2025 3:15 PM EDT Appointment [facility] [address] [facility] 4th [place] [address] [place] [address] Emmett Hyman MD [address] [place] [address] Discharge Disposition: Home [facility] Start: 04-30-2025 End: 04-30-2025 Patient encounter procedure 04/30/2025 10:20 AM EDT Office Visit [facility] [address] 3[address] [place] [address] Cb Boudreaux MD [address] [place] [address] [facility] Start: 01-15-2025 End: 01-15-2025 Patient encounter procedure 01/15/2025 2:00 PM EDT Office Visit [facility] [address] 3rd floor [place] [phone] Cb Boudreaux MD [address] [place] [address] [facility] Start: 01-06-2025 Patient referral [facility] Work Phone: Start: 01-01-[address] [facility] Start: 11-21-2024 End: 11-21-2024 Patient encounter procedure 11/21/2024 8:00 AM EST Appointment [facility] MRI [address] [place] [phone] Cb Boudreaux MD [address] [place] [address] [facility] MRI Start: 09-18-2024 End: 09-18-2024 Patient encounter procedure 09/18/2024 1:00 PM EST Office Visit [facility] [address] [facility] [place] [phone] System, Provider Not In Cb Boudreaux MD [address] [facility] [place] [address] [facility] Start: 07-07-2024 COVID-19 Vaccine ( season) COVID-19 Vaccine ( season) [facility] Start: 07-07-2024 COVID-19 Vaccine ( season) COVID-19 Vaccine ( season) [facility] Start: 07-07-2024 Influenza vaccination [facility] Start: 07-03-2024 Screening for malignant neoplasm of lung Low-dose CT Lung Cancer Screen [facility] Start: 06-03-2024 End: 06-03-2024 Patient encounter procedure 06/03/2024 2:00 PM EDT Appointment [facility] [address] 4th [place] [address] [place] [address] Suzan Gordon MD [address] [place] [address] Discharge Disposition: Home [facility] Start: 02-29-2024 Hemoglobin A1c/Hemoglobin.total in Blood [facility] Start: 02-29-[address] [facility] Start: 02-12-2024 End: 02-12-2024 Patient encounter procedure [facility] Start: 02-07-[address] Patient [address] [facility] Work Phone: Start: 11-28-2023 Tripp and lambda light chains [facility] Start: 11-28-2023 Serum immunof[address]ation [facility] Start: 11-28-2023 Urine immunofixation [facility] Start: 11-07-2023 End: 11-07-2023 Patient encounter procedure 11/07/2023 2:45 PM EST Office Visit [facility] Orthopedic and Sports Medicine [address] [place] [address] [place] [address] Rivas Jules MD [address] [place] [address] [facility] Start: 10-16-2023 End: 10-16-2023 Patient encounter procedure 10/16/2023 2:00 PM EST Office Visit [facility] Orthopedic and [facility] Medicine [address] [place] [address] [place] [address] [phone] Rivas Jules MD [address] [place] [address] [facility] Start: 09-24-2023 Screening for malignant neoplasm of lung Low-dose CT Lung Cancer Screen [facility] Start: 08-14-2023 End: 08-14-2023 Patient encounter procedure 08/14/2023 Appointment Genetics Suzan Gordon MD [address] [place] [address] [facility]etics [facility] Start: 08-08-2023 Urine screening for protein Urine Microalbumin [facility] Start: 07-07-2023 COVID-19 Vaccine ( season) COVID-19 Vaccine ( season) [facility] Start: 07-07-2023 Influenza vaccination [facility] Start: 07-03-2023 Elastase, pancreatic (el-1), fecal; quantitative [facility] Start: 06-05-2023 Patient referral [facility] Work Phone: Start: 06-05-2023 Celiac disease screen [facility] Start: 2023 Fall risk assessment Falls Risk Assessment [facility] Start: 2023 Pneumococcal Vaccine: 65+ Years (1 of 1 - PCV) Pneumococcal Vaccine: 65+ Years (1 of 1 - PCV) [facility] Start: 03-31-2023 Depression screening using PHQ-9 (Patient Health Questionnaire 9) score [facility] Start: 03-24-2023 Hemoglobin A1c measurement A1C [facility] Start: 03-08-2023 Patient referral [facility] Work Phone: Start: 02-13-2023 End: 02-13-2023 Patient encounter procedure 02/13/2023 Appointment Genetics Suzan Gordon MD [address] [place] [address] [facility] Start: 01-30-2023 Pneumococcal Vaccine: Ped or At-Risk (2 of 4 - PPSV23) Pneumococcal Vaccine: Ped or At-Risk (2 of 4 - PPSV23) [facility] Start: 01-26-2023 End: 01-26-2023 Patient encounter procedure 01/26/2023 Appointment Radiology Estrada Garcia MD [address] [place] [address] [address] [facility] Scan Start: 01-24-2023 Microalbumin measurement, urine, quantitative Urine Microalbumin [facility] Start: 01-24-2023 Screening for malignant neoplasm of lung Low-dose CT Lung Cancer Screen [facility] Start: 01-24-2023 Urine screening for protein Urine Microalbumin [facility] Start: 01-05-2023 End: 07-08-2023 Low dose computed tomography of thorax CT Lung Cancer Screening Imaging Routine Screening for lung cancer Expected: 01/05/2023, Expires: 07/08/2023 [facility] Comment on above: Expected: 01/05/2023, Expires: Start: 12-01-[address] [facility] Work Phone: Start: 10-06-2022 Tripp and lambda light chains [facility] Work Phone: Start: 10-06-20[address] Thiamine [address] [facility] Work Phone: Start: 08-31-2022 End: 08-31-2022 Patient encounter procedure 08/31/2022 Office Visit Pulmonology Estrada Garcia MD [address] [place] [address] [address] [facility] Start: 08-25-2022 Screening for malignant neoplasm of breast Mammogram [facility] Start: 08-16-2022 Mammography MAMMOGRAM [facility] Start: 08-16-2022 Screening for malignant neoplasm of breast Mammogram [facility] Start: 08-15-2022 End: 08-15-2022 Admission to same day surgery center 08/15/2022 Surgery Tyshawn Santos MD [address] [place] [address] ESOPHAGOGASTRODUODENOSCOPY [facility] Endoscopy Comment on above: ESOPHAGOGASTRODUODENOSCOPY Start: 08-15-2022 End: 08-15-2022 Esophagogastroduodenoscopy ESOPHAGOGASTRODUODENOSCOPY Pain of upper abdomen Nausea 08/15/2022 11:55 AM EDT [facility] Start: 08-15-2022 Subsequent hospital visit by physician 08/15/2022 Hospital Encounter Tyshawn Santos MD [address] [place] [address] [facility] Endoscopy Start: 08-02-2022 End: 08-02-2022 Patient encounter procedure 08/02/2022 Office Visit Cardiology Day, Roz Jacob MD [address] [place], [place] [address] [place] [address] [facility] Start: 07-19-2022 End: 07-19-2022 Patient encounter procedure 07/19/2022 Office Visit Gastroenterology Debra Adamson, SQL DATA ANALYST [address] [place] [address] [facility] Start: 07-08-2022 End: 07-08-2022 Patient encounter procedure 07/08/2022 Office Visit Pulmonology Estrada Garcia MD [address] [address] [facility] Start: 07-07-2022 Influenza vaccination [facility] Start: 07-04-2022 End: 07-04-2022 Patient encounter procedure 07/04/2022 Office Visit Cardiology Day, Roz Jacob MD [address] [place] [address] [facility] Start: 03-30-2022 End: 03-30-2022 Admission to same day surgery center 03/30/2022 Surgery Jada Vargas MD [address] [place] [address] [facility] PROCEDURE [facility] Periop Comment on above: [facility] PROCEDURE Start: 03-30-2022 End: 03-30-2022 ALTEMEIER PROCEDURE [facility] PROCEDURE Rectal prolapse 03/30/2022 11:15 AM EDT [facility] Start: 03-30-2022 End: 03-30-2022 Admission to same day surgery center 03/30/2022 Surgery Jada Vargas MD [address] [facility] [address] [place] [address] [facility]TEMEIER PROCEDURE [facility] Comment on above: [facility]TEMEIER PROCEDURE Start: 03-30-2022 End: 03-30-2022 ALTEMEIER PROCEDURE ALTEMEIER PROCEDURE Rectal prolapse 03/30/2022 9:50 AM EDT [facility] Start: 03-30-2022 Subsequent hospital visit by physician 03/30/2022 Hospital Encounter Jada Vargas MD [address] [facility] [address] [place] [address] [facility] Start: 03-29-2022 End: 03-29-2022 Patient encounter procedure 03/29/2022 Office Visit Pulmonology Estrada Garcia MD [address] [place] [address] [facility] Start: 03-28-2022 End: 03-28-2022 Patient encounter procedure 03/28/2022 Appointment Cardiology Roz Fontenot MD [address] [place] [address] [facility] Start: 03-28-2022 End: 03-28-2022 Patient encounter procedure 03/28/2022 Appointment Cardiology Rzo Fontenot MD [address] [place] [address] [facility] Start: 03-22-2022 End: 03-22-2022 Patient encounter procedure 03/22/2022 Office Visit Pre-Admission Testing [facility] Preadmission Testing Start: 03-04-2022 End: 03-04-2022 Patient encounter procedure 03/04/2022 Appointment Cardiology Rusty Dozier MD [address] [address] [facility] Start: 02-25-2022 COVID-19 Vaccine (3 - Booster for Lisa series) COVID-19 Vaccine (3 - Booster for Lisa series) [facility] Start: 02-17-2022 Subsequent hospital visit by physician 02/17/2022 Hospital Encounter Jada Vargas MD [address] [facility] [address] [place] [address] [facility] Start: 01-14-2022 Microalbumin measurement, urine, quantitative Urine Microalbumin [facility] Start: 01-10-2022 End: 01-10-2022 Patient encounter procedure 01/10/2022 Appointment Radiology Estrada Garcia MD [address] [place] [address] [facility] Scan Start: 10-08-2021 End: 10-08-2021 Patient encounter procedure 10/08/2021 Office Visit Otolaryngology Professor Of Art HistoryChepe ruffin CNP [address] [place] [address] [facility] Start: 08-16-2021 End: 08-16-2021 Patient encounter procedure 08/16/2021 Appointment Radiology Jonathan Rutherford CNP [address] [place] [address] [facility] Mammography Start: 08-04-2021 End: 08-04-2021 Patient encounter procedure 08/04/2021 Office Visit Otolaryngology Chepe Yin CNP [address] [facility] [address] [place] [address] [facility] Start: 08-03-2021 End: 08-03-2021 Patient encounter procedure 08/03/2021 Office Visit General Surgery Jada Vargas MD [address] [facility] [address] [place] [address] [facility] Start: 08-02-2021 End: 08-02-2021 Patient encounter procedure 08/02/2021 Appointment Radiology Jonathan Rutherford, SQL DATA ANALYST [address] [place] [address] [facility] Mammography Start: 07-07-2021 Influenza vaccination Sequential Influenza Vaccine (#1) [facility] Start: 06-08-2021 End: 06-08-2021 Patient encounter procedure 06/08/2021 Appointment Radiology [facility] Mammography Start: 04-26-2021 [email or web address], Provider: River Sweeney, Status: Pen, Time: 4:15 PM PTFUADULT4, Provider: River Sweeney, Status: Pen, Time: 4:15 PM [facility] Start: 04-23-2021 [email or web address], Provider: Elana Westbrook, Status: Pen, Time: 3:45 PM PTFUADULT4, Provider: Elana Westbrook, Status: Pen, Time: 3:45 PM [facility] Work Phone: Start: 04-21-2021 PTFUADULT4, Provider: Eli Alexander, Status: Pen, Time: 4:15 PM PTFUADULT4, Provider: Eli Alexander, Status: Pen, Time: 4:15 PM [facility] Work Phone: Start: 2021 PTRECHADUL, Provider: Elana Westbrook, Status: Pen, Time: 4:00 PM PTRECHADWICHO, Provider: Elana Westbrook, Status: Pen, Time: 4:00 PM [facility]: Start: 04-15-2021 End: 04-14-2022 Basic metabolic 1998 panel - Serum or Plasma Chem 7 Lab Routine Expected: 04/15/2021, Expires: 04/14/2022 [facility] Comment on above: Expected: 04/15/2021, Expires: 2 Start: 04-15-2021 End: 04-14-2022 Creatine kinase [Enzymatic activity/volume] in Serum or Plasma CPK NO MB Lab Routine Expected: 04/15/2021, Expires: 04/14/2022 [facility] Comment on above: Expected: 04/15/2021, Expires: 2 Start: 04-14-2021 PTFUADULT4, Provider: DavidFebruary, Status: Pen, Time: 4:30 PM PTFUADULT4, Provider: DavidFebruary, Status: Pen, Time: 4:30 PM [facility]: Start: 04-12-2021 PTFUADULT4, Provider: DavidFebruary, Status: Pen, Time: 4:30 PM PTFUADULT4, Provider: DavidFebruary, Status: Pen, Time: 4:30 PM [facility] Work Phone: Start: 04-09-2021 PTFUADULT4, Provider: Eli Alexander, Status: Pen, Time: 4:15 PM PTFUADULT4, Provider: Eli Alexander, Status: Pen, Time: 4:15 PM [facility] Work Phone: Start: 11-24-2020 End: 11-24-2020 Procedure visit 11/24/2020 Procedure visit Neurology Rusty Dozier MD [address] [address] [phone] Eugenia Conte MD [address] [facility] [address] [place] [address] [phone] [facility] Start: 10-12-2020 End: 10-12-2020 Procedure visit 10/12/2020 Procedure visit Neurology Eugenia Conte MD [address] [address] [phone] [facility] Start: 07-07-2020 Influenza vaccination given Sequential Influenza Vacci ne (#1) [facility] Start: 07-07-2019 Influenza vaccination INFLUENZA VACCINE (Season Ended) [facility] Start: 07-07-2019 Influenza vaccination given [facility] Start: 04-19-2019 End: 04-19-2019 Appointment 04/19/2019 Appointment Cardiology Whitley Martinez MD [address] [place] [address] [phone] [facility] Start: 04-10-2019 End: 04-10-2019 Appointment 04/10/2019 Appointment Radiology Rusty Dozier MD [address] [place] [address] [phone] [facility] MRI Start: 01-30-2019 Pneumococcal Vaccine: Age 50+ (2 of 2 - PCV) Pneumococcal Vaccine: Age 50+ (2 of 2 - PCV) [facility] Start: 01-30-2019 Pneumococcal Vaccine: Age 65+ (2 - PCV) Pneumococcal Vaccine: Age 65+ (2 - PCV) [facility] Start: 01-30-2019 Pneumococcal Vaccine: Age 65+ (2 of 2 - PCV) Pneumococcal Vaccine: Age 65+ (2 of 2 - PCV) [facility] Start: 01-30-2019 Pneumococcal Vaccine: Ped or At-Risk (2 - PCV) Pneumococcal Vaccine: Ped or At-Risk (2 - PCV) [facility] Start: 01-30-2019 Pneumococcal Vaccine: Ped or At-Risk (2 of 4 - PCV13) Pneumococcal Vaccine: Ped or At-Risk (2 of 4 - PCV13) [facility] Start: 07-07-2018 Influenza vaccination SEQUENTIAL INFLUENZA VACCINE (#1) [facility] Start: 2018 HEPATITIS B VACCINES (1 of 3 - Risk 3-dose series) HEPATITIS B VACCINES (1 of 3 - Risk 3-dose series) [facility] Start: 2018 Respiratory Syncytial Virus Immunization: Risk, 60-74 Risk, or 75+ (1 - Risk 60-74 years 1-dose series) Respiratory Syncytial Virus Immunization: Risk, 60-74 Risk, or 75+ (1 - Risk 60-74 years 1-dose series) [facility] Start: 2018 RSV Immunization (1 - Risk 60-74 years 1-dose series) RSV Immunization (1 - Risk 60-74 years 1-dose series) [facility] Start: 10-04-2017 Ambulatory 10/04/2017 Office Visit Sports Medicine Vaibhav Naranjo MD 24 [facility] [place] [address] [place] [address] [phone] [facility] Start: 07-07-2017 Influenza vaccination SEQUENTIAL INFLUENZA VACCINE (#1) [facility] Work Phone: Start: 07-07-2017 SEQUENTIAL INFLUENZA VACCINE (#1) SEQUENTIAL INFLUENZA VACCINE (#1) [facility] Work Phone: Start: 07-05-2017 Protein mass conc Mammogram [facility] Start: 07-05-2017 Screening for malignant neoplasm of breast Mammogram [facility] Start: 07-05-2017 Screening mammography Mammogram [facility] Start: 07-04-2017 Ambulatory [facility] Start: 2008 Administration of herpes zoster vaccine Zoster Vaccines (1 of 2) [facility] Start: 2008 Pneumococcal Vaccine: 50+ Years (1 of 1 - PCV) Pneumococcal Vaccine: 50+ Years (1 of 1 - PCV) [facility] Start: 2008 Protein mass conc COLON CANCER SCREENING DISCUSSION [facility] Start: 2008 Screening for malignant neoplasm of colon [facility] Start: 2008 Zoster vaccine hzv live for subcutaneous use ZOSTER (SHINGLES) VACCINE (1 of 2) [facility] Start: 2008 ZOSTER VACCINES (1 of 2) ZOSTER VACCINES (1 of 2) [facility] Start: 1998 Fasting lipid profile LIPID SCREENING [facility] Start: 1998 Protein mass conc MAMMOGRAM SCREENING DISCUSSION [facility] Start: 1979 Screening for malignant neoplasm of cervix PAP SMEAR DISCUSSION [facility] Start: 1977 Administration of herpes zoster vaccine Zoster Vaccines (1 of 2) [facility] Start: 1977 Shingles Vaccine (1 of 2) Shingles Vaccine (1 of 2) [facility] Start: 1977 Third diphtheria, tetanus and acellular pertussis (DTaP) vaccination TDAP (ADULT) [facility] Start: 1976 Hepatitis C antibody, confirmatory test Hepatitis C Screening [facility] Start: 1976 Hepatitis C screening Hepatitis C Screening [facility] Start: 1976 Tetanus vaccination TETANUS [facility] Start: 1974 COVID-19 Vaccine (1 of 2) COVID-19 Vaccine (1 of 2) [facility] Start: 1973 HIV screening HIV Screening [facility] Start: 1971 HIV screening HIV SCREENING DISCUSSION [facility] Start: 1971 Varicella Vaccine (1 of 2 - 13+ 2-dose series) Varicella Vaccine (1 of 2 - 13+ 2-dose series) [facility] Start: 1970 Adolescent depression screening assessment Depression Screening (PHQ9) [facility] Start: 1970 COVID-19 Vaccine (1) COVID-19 Vaccine (1) [facility] Start: 1970 Depression screening using PHQ-9 (Patient Health Questionnaire 9) score [facility] Start: 1968 Diabetic foot examination [facility] Start: 1968 Glaucoma screening [facility] Start: 1968 Ophthalmic examination and evaluation Ophthalmology Exam [facility] Start: 1968 Urine screening for protein Urine (micro)albumin/creatinine ratio - Kidney Disease [facility] Start: 1968 Urine, microalbumin URINE MICROALBUMIN [facility] Start: 1965 DTaP/Tdap/Td Vaccine (1 - Tdap) DTaP/Tdap/Td Vaccine (1 - Tdap) [facility] Start: 1965 DTaP/Tdap/Td VACCINES (1 - Tdap) DTaP/Tdap/Td VACCINES (1 - Tdap) [facility] Start: 1964 Pneumococcal vaccination [facility] Start: 1964 Pneumococcal Vaccine: 65+ Years (1 - PCV) Pneumococcal Vaccine: 65+ Years (1 - PCV) [facility] Start: 1964 Pneumococcal Vaccine: 65+ Years (1 of 2 - PCV) Pneumococcal Vaccine: 65+ Years (1 of 2 - PCV) [facility] Start: 1964 Pneumococcal Vaccine: Ped or At-Risk (1 of 4 - PCV13) Pneumococcal Vaccine: Ped or At-Risk (1 of 4 - PCV13) [facility] Start: 1961 History and physical examination, annual for health maintenance Wellness Visit [facility] Start: 1961 Medicare Wellness Visit Medicare Wellness Visit [facility] Start: 1959 MMR Vaccine (1 of 1 - Standard series) MMR Vaccine (1 of 1 - Standard series) [facility] Start: 1959 MMR VACCINES (1 of 1 - Standard series) MMR VACCINES (1 of 1 - Standard series) [facility] Start: 1959 VARICELLA VACCINES (1 of 2 - 2-dose childhood series) VARICELLA VACCINES (1 of 2 - 2-dose childhood series) [facility] Start: 1958 COVID-19 Vaccine (#1) COVID-19 Vaccine (#1) [facility] Start: 1958 Depression screening using PHQ-9 (Patient Health Questionnaire 9) score Depression Screening (PHQ9) [facility] Start: 1958 Hemoglobin A1c measurement A1C [facility] Start: 1958 Hepatitis C antibody, confirmatory test [facility] Start: 1958 Screening for malignant neoplasm of colon [facility] Start: 1958 Screening for malignant neoplasm of lung Low-dose CT Lung Cancer Screen [facility] Start: 1958 Screening for osteoporosis Dexa Scan [facility] Start: 1958 Thyrotropin Qn TSH [facility] Start: 1958 Colonoscopy COLONOSCOPY [facility] Work Phone: Start: 1958 Cytopathology procedure, preparation of smear, genital source PAP SMEAR [facility] Work Phone: Start: 1960 HEPATITIS C SCREENING HEPATITIS C SCREENING [facility] Work Phone: Start: 1960 Screening colonoscopy COLONOSCOPY [facility] Work Phone: Start: 1960 End: 1960 Screening for malignant neoplasm of cervix PAP SMEAR [facility] Start: 1960 TETANUS EVERY 10 YR TETANUS EVERY 10 YR [facility] Work Phone: Start: 1960 End: 1960 Tetanus vaccination [facility] End: 03-08-2023 12 lead ECG ECG 12 Lead ECG Routine Rectal prolapse Preoperative testing 1 Occurrences starting 03/08/2022 until 03/08/2023 [facility] Comment on above: 1 Occurrences starting 03/08/2022 until 03/08/2023 End: 09-16-2028 12 lead ECG ECG 12 Lead ECG Routine NSVT (nonsustained ventricular tachycardia) ([facility]) 15 Occurrences starting 09/16/2024 until 09/16/2028 [facility] Work Phone: Comment on above: 15 Occurrences starting 09/16/2024 until 09/16/2028 12 lead ECG ECG 12 Lead ECG Routine NSVT (nonsustained ventricular tachycardia) ([facility]) 09/18/2024 1:09 PM EST [facility] 6-minute walk test 6 minute walk PFT Routine Chronic obstructive pulmonary disease, unspecified COPD type ([facility]) 12/30/2021 12:00 PM EST [facility] Acylcarnitine panel - Serum or Plasma ACYLCARNITINES, QUANTITATIVE, PLASMA & SERUM Lab Routine CPT2 deficiency 07/23/2025 3:46 PM EDT [facility] Alanine aminotransfe rase [Enzymatic activity/volume] in Serum or Plasma [facility] Albumin [Mass/volume ] in Serum or Plasma [facility] Albumin [Moles/volum e] in Serum or Plasma [facility] Albumin/Globulin ratio [facility] Alkaline phosphatase [Enzymatic activity/volume] in Serum or Plasma [facility] ALTEMEIER PROCEDURE [place] OCEDURE Rectal prolapse [facility] Ambulatory ECG Event Monitor Amb ulatory ECG Event Monitor Cardiac Services Routine Ventricular tachycardia (HCC) Palpitations NSVT (nonsustained ventricular tachycardia) (HCC) Ordered: 09/18/2024 [facility] Comment on above: Ordered: 09/18/2024 Ambulatory ECG Event Monitor Amb ulatory ECG Event Monitor Cardiac Services Routine Ventricular tachycardia (HCC) Palpitations NSVT (nonsustained ventricular tachycardia) (HCC) Ordered: 10/23/2024 [facility] Work Phone: Comment on above: Ordered: 10/23/2024 Anion gap in Serum or Plasma [facility] Anion gap measurement [facility] Ankle brachial pressure index [facility] Work Phone: Ankle brachial pressure index [facility] Aspartate aminotrans ferase [Enzymatic activity/volume] in Serum or Plasma [facility] Bacteria identified in Blood by Culture Blood Culture Aerobic/Anaerobic Microbiology Routine 09/02/2024 11:39 AM EDT [facility] Work Phone: Bacteria identified in Blood by Culture [facility] Work Phone: Bacteria identified in Blood by Culture Blood Culture Aerobic/Anaerobic Microbiology ABDELRAHMAN 02/13/2025 5:53 PM EDT [facility] Work Phone: Bilirubin, total measurement [facility] BUN/Creatinine ratio [facility] BUN/Creatinine ratio [facility] Calcium [Mass/volume ] in Serum or Plasma [facility] Calcium [Mass/volume ] in Serum or Plasma [facility] Carbon dioxide, tota l [Moles/volume] in Central venous blood [facility] Carbon dioxide, tota l [Moles/volume] in Serum or Plasma [facility] End: 03-08-2023 CBC panel - Blood by Automated count CBC Lab Routine Rectal prolapse Preoperative testing 1 Occurrences starting 03/08/2022 until 03/08/2023 [facility] Work Phone: Comment on above: 1 Occurrences starting 03/08/2022 until 03/08/2023 Chloride [Moles/volu me] in Serum or Plasma [facility] Colonoscopy COLONOSCOPY Hx o f colonic polyps [facility] End: 03-08-2023 Comprehensive metabolic 2000 panel - Serum or Plasma Comprehensive metabolic panel Lab Routine Rectal prolapse Preoperative testing 1 Occurrences starting 03/08/2022 until 03/08/2023 [facility] Comment on above: 1 Occurrences starting 03/08/2022 until 03/08/2023 Creatinine [Mass/vol ume] in Serum or Plasma [facility] Creatinine [Moles/vo lume] in Serum or Plasma [facility] CT Chest [facility] CT Chest [facility] DXA Bone [Mass/Area] Bone density [facility] End: 04-05-2020 Echocardiography Echocardiogram complete Echocardiography Routine Abnormal electrocardiogram Cardiomyopathy, unspecified type (HCC) Hypertension, unspecified type 1 Occurrences starting 04/05/2019 until 04/05/2020 [facility] Comment on above: 1 Occurrences starting 04/05/2019 until 04/05/2020 Elastase, pancreatic (el-1), fecal; quantitative [facility] Electrophoresis: [id number] [facility] Electrophoresis: tanja ma globulin [facility] Exercise tolerance test [facility] Globulin measurement [facility] Glucose [Mass/volume ] in Serum or Plasma [facility] Glucose [Mass/volume ] in Serum or Plasma [facility] IgA [Mass/volume] in Serum or Plasma [facility] IgG [Mass/volume] in Serum or Plasma [facility] IgM [Mass/volume] in Serum or Plasma [facility] End: 03-08-2023 INR in Platelet poor plasma by Coagulation assay PT/INR Lab Routine Rectal prolapse Preoperative testing Abdominal pain, unspecified abdominal location 1 Occurrences starting 03/08/2022 until 03/08/2023 [facility] Comment on above: 1 Occurrences starting 03/08/2022 until 03/08/2023 Tripp/lambda light c bud ratio [facility] Work Phone: Tripp/lambda light c bud ratio [facility] Lambda light chains. free [Mass/volume] in Serum or Plasma [facility] Work Phone: Lambda light chains. free [Mass/volume] in Serum or Plasma [facility] End: 12-30-2022 Low dose computed tomography of thorax CT Lung Cancer Screening Imaging Routine Screening for lung cancer Chronic obstructive pulmonary disease, unspecified COPD type (HCC) 1 Occurrences starting 12/30/2021 until 12/30/2022 [facility] Work Phone: Comment on above: 1 Occurrences starting 12/30/2021 until 12/30/2022 Magnesium measurement [facility] Measurement of immun oglobulin A in serum specimen [facility] Measurement of renal function [facility] Measurement of renal function [facility] Measurement of respi ratory function [facility] MG Breast - bilatera l Screening [facility] MR Cervical spine [facility] Work Phone: MR Cervical spine [facility] MR Cervical spine [facility] End: 09-18-2025 MR Heart WO and W contrast IV MR Cardiac Morphology Wi th And Without Contrast Without velocity flow Imaging Routine Ventricular tachycardia (HCC) Palpitations NSVT (nonsustained ventricular tachycardia) ([facility]) 1 Occurrences starting 09/18/2024 until 09/18/2025 [facility] Work Phone: Comment on above: 1 Occurrences starting 09/18/2024 until 09/18/2025 End: 04-10-2019 MR Hip Right Without Contrast MR Hip Right Without Contrast Imaging Routine Right hip pain Once for 1 Occurrences starting 04/10/2019 until 04/10/2019 [facility] Comment on above: Once for 1 Occurrences starting 04/10/20 until 04/10/2019 MR Hip Right Without Contrast MR Hip Right Without Contrast Imaging Routine Right hip pain 04/10/2019 1:54 PM EDT [facility] MR Lower Extremity Joint [facility] MRI of cervical spine MRI SPINE CERVICAL WITHOUT CONTRAST Imaging Routine Cervical spine disease Ordered: 08/24/2016 [facility] Comment on above: Ordered: 08/24/2016 MRI of lower extremity MRI LONG BONE NEUROGRAPHY LOWER EXTREMITY LEFT Imaging Routine Myopathy Ordered: 08/24/2016 [facility] Comment on above: Ordered: 08/24/2016 MRI of lumbar spine MRI SPINE ANIL MBAR WITHOUT CONTRAST Imaging Routine Osteoarthritis of spine with radiculopathy, lumbar region Ordered: 08/24/2016 [facility] Comment on above: Ordered: 08/24/2016 Myoglobin [Presence] in Urine My oglobin, Urine Lab STAT 04/14/2021 4:26 PM EDT [facility] Patient Education ED Neck Pain E D Neck Spasm, No Trauma [facility] Work Phone: Patient referral [facility] Work Phone: Polysomnography [facility] Potassium [Moles/vol ume] in Serum or Plasma [facility] Potassium measurement [facility] Procedure on tissue specimen [facility] Work Phone: Comment on above: Release Upon Ordering for 1 Occurrences starting 03/30/2022, 1 completed Protein electrophore sis panel - Serum or Plasma [facility] Serum chloride measurement [facility] Sodium [Moles/volume ] in Serum or Plasma [facility] Sodium measurement [facility] End: 07-08-2023 Standard chest X-ray XR Chest AP/PA and LAT Imaging Routine COPD exacerbation (HCC) 1 Occurrences starting 07/08/2022 until 07/08/2023 [facility] Work Phone: Comment on above: 1 Occurrences starting 07/08/2022 until 07/08/2023 Thiamine [address] [facility] Work Phone: Thyroid stimulating hormone measurement [facility] Tissue transglutamin ase IgA Ab [Units/volume] in Serum [facility] Total protein measurement [facility] Ultrasound Duplex Ve nous Leg RIGHT Ultrasound Duplex Venous Leg RIGHT Vascular Ultrasound ABDELRAHMAN 11/02/2020 3:21 PM EST [facility] Urea nitrogen [Mass/ volume] in Serum or Plasma [facility] Urea nitrogen [Mass/ volume] in Serum or Plasma [facility] Urine kappa light ch ain measurement [facility] Work Phone: Urine kappa light ch ain measurement [facility] US Thyroid gland [facility] Walking distance 6 minutes [facility] End: 10-06-2024 XR Hand - left 2 Views XR Hand Left 2 Views Imaging Routine Pain 1 Occurrences starting 10/06/2023 until 10/06/2024 [facility] Work Phone: Comment on above: 1 Occurrences starting 10/06/2023 until 10/06/2024 End: 09-02-2025 XR Knee - bilateral AP and Lateral W standing XR Knees Standing Bilateral AP/ LAT Imaging Routine Pain 1 Occurrences starting 09/02/2024 until 09/02/2025 [facility] Work Phone: Comment on above: 1 Occurrences starting 09/02/2024 until 09/02/2025 [facility] Immunizations Immunization Date Immunization Notes Care Provider [facility] 09-03-2024 influenza, high dose seasonal, preservative-free Ramírez Cunningham MD Work Phone: [facility] 09-03-2024 influenza virus vacc ine, unspecified formulation Meliza Rust [facility] 10-17-2023 Covid (Spikevax) Dr. Jennifer Gordon Work Phone: [facility] 10-17-2023 influenza, injectabl e, quadrivalent, preservative free Dr. Jennifer Gordon Work Phone: [facility] 10-17-2023 influenza virus vacc ine, unspecified formulation Rivas Jules MD Work Phone: [facility] 10-14-2022 Covid Moderna Bivale nt Booster Dr. Jennifer Gordon Work Phone: [facility] 10-14-2022 Influenza, high dose seasonal Dr. Jennifer Gordon MD Work Phone: [facility] 10-14-2022 influenza, high dose seasonal, preservative-free FACTORY REPRESENTATIVE-C Jonathan Rutherford FACTORY REPRESENTATIVE Work Phone: [facility] 10-14-2022 influenza, injectabl e, quadrivalent, preservative free Dr. Jennifer Gordon Work Phone: [facility] 10-14-2022 influenza virus vacc ine, unspecified formulation Provider System [facility] 10-27-2021 Covid (Moderna) FACTORY REPRESENTATIVE-C Jonathan Gallgeoer FACTORY REPRESENTATIVE Work Phone: [facility] 10-13-2021 influenza, injectabl e, quadrivalent, preservative free Dr. Jennifer Gordon Work Phone: [facility] 10-13-2021 influenza, seasonal, injectable FACTORY REPRESENTATIVE-C Jonathan Helvaleriaer FACTORY REPRESENTATIVE Work Phone: [facility] 01-08-2021 Covid (Augie & Augie) FACTORY REPRESENTATIVE-C Jonathan Hellinger FACTORY REPRESENTATIVE Work Phone: [facility] 08-20-2020 influenza, injectabl e, quadrivalent, preservative free Dr. Jennifer Gordon Work Phone: [facility] 08-20-2020 influenza, seasonal, injectable FACTORY REPRESENTATIVE-C Jonathan Hellinger FACTORY REPRESENTATIVE Work Phone: [facility] 08-13-2019 Influenza, high dose seasonal Dr. Jennifer Gordon MD Work Phone: [facility] 08-13-2019 influenza, high dose seasonal, preservative-free FACTORY REPRESENTATIVE-C Jonathan Gallegoer FACTORY REPRESENTATIVE Work Phone: [facility] 09-17-2018 influenza, injectabl e, quadrivalent, preservative free Dr. Jennifer Gordon Work Phone: [facility] 09-17-2018 influenza, seasonal, injectable FACTORY REPRESENTATIVE-C Jonathan Gallegoer FACTORY REPRESENTATIVE Work Phone: [facility] 01-30-2018 pneumococcal polysaccharide vaccine, 23 valent FACTORY REPRESENTATIVE-C Jonathan Gallegoer FACTORY REPRESENTATIVE Work Phone: [facility] 09-18-2017 influenza, injectabl e, quadrivalent, preservative free Dr. Jennifre Gordon Work Phone: [facility] 09-18-2017 influenza, seasonal, injectable FACTORY REPRESENTATIVE-C Jonathan Gallegoer FACTORY REPRESENTATIVE Work Phone: [facility] 09-18-2017 influenza, seasonal, injectable, preservative free [facility] 09-18-2017 Seasonal, quadrivale nt, recombinant, injectable influenza vaccine, preservative free Dr. Jennifer Gordon Work Phone: [facility] 09-18-2017 influenza virus vacc ine, unspecified formulation [facility] 11-14-2016 influenza, injectabl e, quadrivalent, preservative free Dr. Jennifer Gordon Work Phone: [facility] 11-14-2016 influenza, seasonal, injectable FACTORY REPRESENTATIVE-C Jonathan Gallegoer FACTORY REPRESENTATIVE Work Phone: [facility] 11-14-2016 influenza, seasonal, injectable, preservative free [facility] 11-14-2016 Seasonal, quadrivale nt, recombinant, injectable influenza vaccine, preservative free Dr. Jennifer Gordon Work Phone: [facility] 01-18-2016 influenza, injectabl e, quadrivalent, preservative free Dr. Jennifer Gordon Work Phone: [facility] 01-18-2016 influenza, seasonal, injectable FACTORY REPRESENTATIVE-C Jonathan Rutherford FACTORY REPRESENTATIVE Work Phone: [facility] 01-18-2016 influenza, seasonal, injectable, preservative free Dr. Jennifer Gordon MD Work Phone: [facility] 01-18-2016 Seasonal, quadrivale nt, recombinant, injectable influenza vaccine, preservative free Dr. Jennifer Gordon Work Phone: [facility] Payers Date Payer Category Payer Self-pay [id number] 2020 Medicaid [id number] 2020 Medicare Managed Car e (unspecified) [facility] DUAL [place]PLETE (O [place]) [place] [address] [id number] 2020 Private Health Insurance [id number] 2020 Unknown [id number] 2019 Medicaid [id number]. [id number] 2019 Medicaid [id number] 2.16.840.1.936458.3.249. 13 2016 Medicaid [id number] 2.16.840.1.695796.3.249. 13 2016 Medicaid MEDICAID [facility] [id number] 2016-Present [id number]. 2.7.3.446571.315 2013 Medicare [id number] 2.16.840.1.564486.3.249. 13 2013 Medicare HUMANA MANAGED M EDICARE HUMANA MCR ADVANTAGE CHOICE PPO [id number] 2013-Present [id number] [id number]. 2.7.3.994936.315 2009 Medicare [id number]. 1.13.385. 2.7.3.978414.315 2009 Medicare [id number] 1958 Unknown [id number] 2.16.840.1.838344.3.579. 2.356 1958 Unknown [id number] 2.16.840.1.311073.3.579. 2.356 1958 Unknown [id number] 2.16.840.1.882735.3.579. 2.356 1958 Unknown [id number] 2.16.840.1.118303.3.579. 2.903 1958 Unknown [id number] 2.16.840.1.538556.3.579. 2.903 1958 Unknown [id number] 2.16.840.1.570492.3.579. 2.903 1958 Unknown [id number] 2.16.840.1.129439.3.579. 2.903 1958 Unknown [id number] 2.16.840.1.157001.3.579. 2.903 1958 Unknown [id number] 2.16.840.1.130367.3.579. 2.430 1958 Unknown [id number] 2.16.840.1.220140.3.579. 2.430 1958 Unknown [id number] 2.16.840.1.276998.3.579. 2.430 1958 Unknown [id number] 2.16.840.1.581670.3.579. 2.430 1958 Unknown [id number] 2.16.840.1.595551.3.579. 2. 1958 Unknown [id number] 2.16.840.1.010451.3.579. 2.3 1958 Unknown [id number] 2.840.1.595602.3.579. 2. 1958 Unknown [id number] 2.16840.1.289472.3.579. 2.3 1958 Unknown [id number] 2.16840.1.435694.3.579. 2.3 1958 Unknown [id number] 2.16.840.1.216086.3.579. 2.903 Medicare [id number] 2.16840.1.801412.3.249. 13 Medicaid [id number] Unknown Unknown [id number] 2.16.840.1.004812.3.579. 2.462 Unknown [id number] 2.16.840.1.381374.3.579. 2.462 Unknown [id number] 2.16.840.1.995627.3.579. 2.462 Unknown [id number] 2.16.840.1.468637.3.579. 2.462 Unknown [id number] 2.16.840.1.039580.3.579. 2.462 Unknown [id number] 2.16.840.1.748035.3.579. 2.462 Unknown [id number] 2.16.840.1.452637.3.579. 2.462 Unknown [id number] 2.16.840.1.594058.3.579. 2.462 Unknown [id number] 2.16840.1.810462.3.579. 2.462 Unknown [id number] 2.16840.1.065269.3.579. 2.462 Unknown [id number] 2.840.1.812775.3.579. 2.462 Unknown [id number] 2.840.1.126681.3.579. 2.462 Unknown [id number] 2.840.1.714535.3.579. 2.462 Unknown [id number] 2.840.1.326316.3.579. 2.462 Unknown [id number] 2.840.1.186390.3.579. 2.462 Unknown [id number] 2.840.1.034729.3.579. 2.462 Unknown [id number] 2.840.1.062958.3.579. 2.462 Unknown [id number] 2.840.1.826003.3.579. 2.462 Unknown [id number] 2.840.1.685351.3.579. 2.462 Unknown [id number] 2.16840.1.151872.3.579. 2.462 Unknown [id number] 2.16840.1.099906.3.579. 2.462 Unknown [id number] 2.16840.1.294385.3.579. 2.462 Unknown [id number] 2.16840.1.531001.3.579. 2.462 Unknown [id number] 2.16.840.1.488182.3.579. 2.462 Unknown [id number] 2.16.840.1.522616.3.579. 2.462 Unknown [id number] 2.16.840.1.747763.3.579. 2.462 Unknown [id number] 2.16.840.1.788825.3.579. 2.462 Unknown [id number] 2.16.840.1.654820.3.579. 2.462 Unknown [id number] 2.16.840.1.594551.3.579. 2.462 Unknown [id number] 2.16.840.1.258884.3.579. 2.462 Unknown [id number] 2.16.840.1.605425.3.579. 2.462 Unknown [id number] 2.16.840.1.631493.3.579. 2.462 Unknown [id number] 2.16.840.1.921164.3.579. 2.462 Social History Date Type Detail Facility Start: 11-14-2016 End: 07-04-2017 Tobacco smoking status SCIS Former smoker [facility] Work Phone: Start: 07-10-1993 End: 07-10-2013 History of tobacco use Current smoker [facility] Work Phone: Start: 07-04-2017 End: 06-03-2024 Cigarettes smoked current (pack per day) - Reported [facility] Start: 1960 Sex Assigned At Not on file [facility] Work Phone: Start: 07-10-1993 End: 07-10-2013 History of tobacco use Cigarette Smoker [facility] Start: 05-07-2019 End: 07-23-2025 Alcohol intake Current non-drinker of alcohol (finding) [facility] Start: 11-14-2016 End: 09-15-2020 Tobacco use and exposure Never used [facility] Start: 12-17-2021 End: 07-19-2022 Exposure to SARS-CoV-2 (event) Not sure [facility] Start: 10-06-2022 End: 02-27-2024 Tobacco smoking status NHIS Unknown if ever smoked [facility] Start: 1960 Sex Assigned At Female [facility] Start: 02-13-2023 History SDOH Financial 2 [facility] Start: 02-13-2023 History SDOH Food Worry 1 [facility] Start: 02-13-2023 History SDOH Food Scarcity 98 [facility] Start: 11-10-2022 End: 06-03-2024 Tobacco use panel [facility] Start: 10-14-2016 Adult Depression Screening Assessment 0 [facility] Start: 05-18-2018 Gender identity Identifies as female gender (finding) [facility] Start: 05-07-2019 Sexual orientation Heterosexual (finding) [facility] How hard is it for y ou to pay for the very basics like food, housing, medical care, and heating Hard [facility] (I/We) worried kaylee er (my/our) food would run out before (I/we) got money to buy more. Never true [facility] The food that (I/we) bought just didn't last, and (I/we) didn't have money to get more. DK or Refused [facility] In the past 12 month s, was there a time when you were not able to pay the mortgage or rent on time? No [facility] In the past 12 month s, was there a time when you were not able to pay the mortgage or rent on time? Yes [facility] How hard is it for y ou to pay for the very basics like food, housing, medical care, and heating Somewhat hard [facility] Start: 01-23-2025 End: 02-05-2025 Sex Female (finding) [facility] Goals Date Patient Goal Desired Activity /State Functional Status Date Assessment Result Facility 07-20-2025 Functional status Ambulates [facility] Work Phone: Mental Status Date Assessment Result Facility 07-20-2025 Cognitive function Voice/Name [facility] Work Phone: 07-17-2025 Cognitive function Level Of Cons ciousness Awake;Alert;Appropriate;Follow s Commands [facility] Work Phone: 01-01-2025 Cognitive function Level Of Cons ciousness Awake;Alert;Appropriate;Follow s Commands [facility] Work Phone: Clinical Notes 03-15-2021 to 08-28-2025 Telephone Encounter - Garland Kumar RD, LD - 08/28/2025 1:13 PM EDTTelephone Encounter - Garland Kumar RD, LD - 08/28/2025 1:13 PM EDTTelephone Encounter - Garland Kumar RD, LD - 08/27/2025 2:11 PM EDT Note Date & Type Note Facility 08-28-2025 Telephone encounter Note Called Radha to let her know [facility] is trying to reach her to setup formula delivery. FWD [phone] is Ali from [facility] 08-28-2025 Miscellaneous Notes Called Radha to let her know [facility] is trying to reach her to setup formula delivery. FWD [phone] is Ali from [facility] documented in this encounter [facility] 08-27-2025 Telephone encounter Note Reached out to Radha because [facility] is trying to get in touch with her. No Answer left VM with RD callback number [facility] 08-27-2025 Miscellaneous Notes Reached out to Radha because [facility] is trying to get in touch with her. No Answer left VM with RD callback number documented in this encounter [facility] 08-07-2025 Telephone encounter Note Pharmacy called Eileen Badillo wanted to see if the patient was goint to put back on Dojolvi. [facility] 08-07-2025 Miscellaneous Notes Pharmacy called iEleen Badillo wanted to see if the patient was goint to put back on Dojolvi. documented in this encounter [facility] 08-05-2025 History of Presen t illness Narrative Attached media from the original note were not included. CMN and clinic notes securely faxed to [facility] @ documented in this encounter [facility] 07-23-2025 History of Presen t illness Narrative Nutrition Follow up Assessment: Radha Shafer is a 65 year old female with Patient Active Problem List Diagnosis Muscle pain Muscle weakness (generalized) CPT2 deficiency Chronic renal failure syndrome, stage 3 (moderate) COPD (chronic obstructive pulmonary disease) Hypertension Depression Percentiles from [facility]-Normal growth charts. Weight: 99.6 kg (219 lb 9.3 oz), Facility age limit for growth %janis is 16 years. Weight change from 06/03/2024 to 07/23/2025 is -9.8 kg (-9%) based on measurements: 99.6 kg taken on 07/23/2025 1:10 PM 109.4 kg taken on 06/03/2024 2:21 PM Height: 162 cm (63.78), Facility age limit for growth %janis is 16 years. Height change from 06/03/2024 to 07/23/2025 is +0.5 cm (+0.3%) based on measurements: 162 cm taken on 07/23/2025 1:10 PM 161.5 cm taken on 06/03/2024 2:21 PM Facility age limit for growth %janis is 18 years. Facility age limit for growth %janis is 16 years. Z-score interpretation: Per z score and on visual exam, no malnutrition present. RD note recent weight loss. Caregiver/Learner Assessment: Radha Shafer asked appropriate nutrition related questions and appeared to understand information provided. Nutrition Relevant Labs: Appointment on 06/03/2024 Component Date Value Ref Range Status SODIUM 06/03/2024 133 (L) 135 - 145 mmol/L Final POTASSIUM 06/03/2024 5.7 (H) 3.6 - 4.9 mmol/L Final CHLORIDE 06/03/2024 102 98 - 110 mmol/L Final CARBON DIOXIDE 06/03/2024 20 (L) 21 - 30 mmol/L Final BUN 06/03/2024 47 (*H) 5 - 18 mg/dL Final CREATININE 06/03/2024 2.13 (*H) 0.5 - 1 mg/dL Final GLUCOSE 06/03/2024 89 60 - 115 mg/dL Final CALCIUM 06/03/2024 9.4 8 - 10.5 mg/dL Final TOTAL PROTEIN 06/03/2024 8.0 6.5 - 8.6 g/dL Final ALBUMIN 06/03/2024 4.5 3.4 - 5.2 g/dL Final ALT 06/03/2024 137 (H) <36 U/L Final AST 06/03/2024 78 (H) 15 - 50 U/L Final ALKALINE PHOSPHATASE 06/03/2024 228 (H) 50 - 136 U/L Final BILIRUBIN TOTAL (TBILR) 06/03/2024 0.2 0.1 - 1.0 mg/dL Final FREE CARNITINE 06/03/2024 50.71 22 - 52 umol/L Final TOTAL CARNITINE 06/03/2024 67.85 (H) 27 - 66 umol/L Final NOTE: 06/03/2024 Final Value:This test was developed and its performance characteristics determined by [facility]. It has not been cleared or approved by the FDA. The laboratory is regulated under CLIA as qualified to perform high complexity testing. This test is used for clinical purposes. It should not be regarded as investigational or for research. CK 06/03/2024 257 <289 U/L Final Allergies: Allergies Allergen Reactions Penicillins Unknown Was told as a child that she is allergic, but has never taken it to know the reaction. Vancomycin Rash Nutrition Information: Current diet/formula order: Radha was here today for her annual check in, her main concern was that she has been in and out of the hospital recently for recurrent episodes of rhabdomyolysis. She continues to take carnitine 3x/day, but has stopped taking Dojolvi due to GI issues. RD stressed the importance of Dojolvi, but Radha was not open to restarting even in lower doses. Radha was open to MCT oil and calories supplement. Diet cabrera, Radha eats 2 meals a day, she does not track grams of fat, but opts for low fat foods. Breakfast will be a bowl of cereal and milk. Dinner will be a variety, containing either rice, pasta, vegetables, and a meat. She drinks tons of water, and snacks on 2-3 ding dongs throughout the day. RD recommended trying to eat another meal throughout the day, due to stopping Dojolvi that is a decrease in a lot of calories, and with recent weight loss can lead to rhabdo. Radha was open to the idea, though she does not get hungry throughout the day. RD recommended a calorie supplement/shake that way she can drink some of her calories. Marylu mentioned that she recently got approved for [employer] meal delivery, and will soon get 3 meals delivered a day. Radha was happy for the approval, because it will lift the burden of cooking. In the meantime RD will look into calorie supplements, and MCT procal as an option for Radha, RD to discuss options with MD, and reach out to family with any dietary changes. Formula (current) provides. Radha is currently not taking dojolvi. 0 calories 0 protein Estimated energy needs: 0246-3608 kcals/day (based on EER for age and weight with a PAF of sedentary.) Estimated protein needs: 79 gms/day (based on DRI of 0.8gms/kg) Medications: Current Outpatient Medications on File Prior to Visit Medication Sig Dispense Refill ferrous sulfate 324 mg (65 mg iron) tablet,delayed release Take 324 mg by mouth. levOCARNitine 330 mg tablet (Carnitor) Take three times a day 90 tablet 11 DULoxetine (CYMBALTA) 30 mg oral capsule, delayed release Take 2 capsules by mouth once daily. tiZANidine (ZANAFLEX) 2 mg oral tablet Take 1 tablet by mouth once daily. amLODIPine (NORVASC) 5 mg oral tablet Take 1 tablet by mouth once daily. levothyroxine 150 mcg tablet Take 175 mcg by mouth once daily. lisinopril (ZESTRIL) 20 mg oral tablet Take 2 tablets by mouth once daily. Takes 40mg daily. omeprazole (PRILOSEC) 20 mg oral capsule, delayed-release Take 2 capsules by mouth once daily. ALBUTEROL, REFILL, INHALATION Inhale by mouth. albuterol HFA 90 mcg/actuation inhalation inhaler Inhale 2 puffs by mouth every 4 hours as needed for Wheezing, Shortness of breath or Cough. Doxepin 50 mg oral Cap Take 75 mg by mouth every night at bedtime. cholecalciferol (vitamin D3) 50 mcg (2,000 unit) tablet Take 1 tablet by mouth once daily. Can't afford it Takes 50,000 weekly Dojolvi 8.3 kcal/mL oral liquid (triheptanoin) Take 20 mL by mouth three times a day.Calculated daily calorie 1667 kcal.Target calories from Dojolvi 500 kcal (30%) (Patient taking differently: Take 20 mL by mouth three times a day.Calculated daily calorie 1667 kcal.Target calories from Dojolvi 500 kcal (30%) Pt reported bad side effects) 2500 mL 11 No current facility-administered medications on file prior to visit. Potential food/drug interactions: None noted Nutrition Diagnosis: Impaired nutrient utilization related to CPT 2 deficiency as evidence by need for fat restricted diet and supplementation to meet caloric needs . Nutrition Prescription (Recommendations): 1.) Continue a low fat diet, try to eat 3 meals a day and snacks every 3-[address] 2.) RD to looking MCT supplementation, and diet recommendations. 3.) For additional questions or concerns call Garland Kumar RD, ZAC [phone] Miguel Hyman. Follow-Up: Recommend Radhamary ellen Alexanderrayne return to [facility] per MD recommendations. Total Patient Care Time: 30 minutes in direct patient care; [address], ZAC [facility] [address] [facility] [address] [place] [id number] DATE (TIME): 07/23/2025 PATIENT: Radha Shafer : 1960 PARENTS: fathers name not listed mothers name not listed Radha Shafer [address] [facility] [address] REFERRING PROVIDER: No referring provider defined for this encounter. PRIMARY-CARE PROVIDER: Andre Martinez MD [address] [place] [address] Impression/Recommendations: aRdha Shafer is a 65 year old female with CPT2 deficiency. Overall, Radha appears to be doing worse. She is now on oxygen all day but has come off CPAP. She is reporting worse weight gain and concern about her anemia. She is also reporting a long history of diarrhea that did not improve even off Dojolvi. With her multiple concerns, I believe she would benefit from seeing hematology regarding her anemia since it has no response to iron and to see GI for her post-rectal prolapse concerns. Her previous attempts to get treatment did not go well. They are also requesting information on a PCP even if it requires driving to [place]. I will have to investigate possible options for the family since I am newer to the area. Per Radha and her granddaughter, Dojolvi caused significantly worse symptoms. However, given her weight concerns and worsening muscle issues, we do need to start an alternative. In this case, we discussed a trial of powder MCT. Family was okay with a trial. Also provided levocarnitine prescription. Her strength is quite good today but she reports rapid worsening if moving or using muscles after 10 minutes or so. She should continue her carnitine for now. We will check some labs today including updated CBC. Please see additional note from our metabolic cmv driver, Garland Kumar RD, LD, for detailed dietary assessment and plan. Plan: 1) Metabolic testing performed today: CMP, CK, Acylcarnitine profile, CBC 2) Dietary changes: Will plan to trial MCT 3) Routine monitoring: annually acylcarnitine 4) Medication: continue levocarnitine 5) Follow up appointments: referrals to GI and hematology Reason for Visit: Radha Shafer is a 65years female referred by Andre Martinez MD who returns with her patient and and granddaughter for follow-up of CPT2 deficiency. Radha was last seen on 06/03/2024. Radha has worsening symptoms of muscle fatigue. She has multiple instances of rhabdomyolysis since last visit with admissions. They refuse to call our office or listen to our letters per Radha. She believes her anemia is making her CPT2 and muscle issues worse. Her licensed funeral director is also concerned. She feels her fatigue sets in after only 5-10 minutes. She is now on oxygen but did get off CPAP overnight. They are reporting weight loss and poor eating habits. Additional history was obtained from the available records. The patient was seen along with our metabolic cmv driver, Garland Kumar RD, LD. Radha is doing worse since last visit. Since last visit there have been several visits to the emergency room and several admissions to hospital. Poor weight gain recently. Acquisition of gross motor and fine motor skills was normal. There have been no delays in expressive and receptive language skills. Regressions have not been described. Problem list includes: Patient Active Problem List Diagnosis Muscle pain Muscle weakness (generalized) CPT2 deficiency Chronic renal failure syndrome, stage 3 (moderate) COPD (chronic obstructive pulmonary disease) Hypertension Depression Past Medical, Surgical, and Family History: Past medical history: Past Medical History: Diagnosis Date Chronic renal disease, stage 3, moderately decreased glomerular filtration rate between 30-59 mL/min/1.73 square meter COPD (chronic obstructive pulmonary disease) Depression, major, recurrent Hypertension Hypothyroidism, postsurgical Thyroid cancer There are no updates from last visit. Past surgical history: Past Surgical History: Procedure Laterality Date HX TOTAL ABDOMINAL HYSTERECTOMY HX TOTAL KNEE ARTHROPLASTY Left . There are no updates from last visit. Medications: Current Outpatient Medications: levOCARNitine 330 mg tablet (Carnitor), Take three times a day, Disp: 90 tablet, Rfl: 11 ferrous sulfate 324 mg (65 mg iron) tablet,delayed release, Take 324 mg by mouth., Disp: , Rfl: DULoxetine (CYMBALTA) 30 mg oral capsule, delayed release, Take 2 capsules by mouth once daily., Disp: , Rfl: tiZANidine (ZANAFLEX) 2 mg oral tablet, Take 1 tablet by mouth once daily., Disp: , Rfl: amLODIPine (NORVASC) 5 mg oral tablet, Take 1 tablet by mouth once daily., Disp: , Rfl: levothyroxine 150 mcg tablet, Take 175 mcg by mouth once daily., Disp: , Rfl: lisinopril (ZESTRIL) 20 mg oral tablet, Take 2 tablets by mouth once daily. Takes 40mg daily., Disp: , Rfl: omeprazole (PRILOSEC) 20 mg oral capsule, delayed-release, Take 2 capsules by mouth once daily., Disp: , Rfl: ALBUTEROL, REFILL, INHALATION, Inhale by mouth., Disp: , Rfl: albuterol HFA 90 mcg/actuation inhalation inhaler, Inhale 2 puffs by mouth every 4 hours as needed for Wheezing, Shortness of breath or Cough., Disp: , Rfl: Doxepin 50 mg oral Cap, Take 75 mg by mouth every night at bedtime., Disp: , Rfl: cholecalciferol (vitamin D3) 50 mcg (2,000 unit) tablet, Take 1 tablet by mouth once daily. Can't afford it Takes 50,000 weekly, Disp: , Rfl: Dojolvi 8.3 kcal/mL oral liquid (triheptanoin), Take 20 mL by mouth three times a day.Calculated daily calorie 1667 kcal.Target calories from Dojolvi 500 kcal (30%) (Patient taking differently: Take 20 mL by mouth three times a day.Calculated daily calorie 1667 kcal.Target calories from Dojolvi 500 kcal (30%) Pt reported bad side effects), Disp: 2500 mL, Rfl: 11 Allergies: Allergies Allergen Reactions Penicillins Unknown Was told as a child that she is allergic, but has never taken it to know the reaction. Vancomycin Rash Social history: Radha lives with her daughter. There are no updates from last visit. Family history: Review is notable for no other affected family members. There are no updates from last visit. Review of Systems: A complete review of systems including diet and growth was performed, and was noncontributory except as outlined in HPI and below . Physical Exam: Weight: 99.6 kg (219 lb 9.3 oz), Facility age limit for growth %janis is 16 years. Weight change from 06/03/2024 to 07/23/2025 is -9.8 kg (-9%) based on measurements: 99.6 kg taken on 07/23/2025 1:10 PM 109.4 kg taken on 06/03/2024 2:21 PM Height: 162 cm (63.78), Facility age limit for growth %janis is 16 years. Head Circumference: 56 cm (22.05) No head circumference on file. (within normal limits) BP: 129/78, Growth %ile [employer] can only be used for patients less than 18 years old. Last Vital Signs Pulse: 61 BP: 129/78 Body mass index is 37.95 kg/m . Facility age limit for growth %janis is 16 years. General: alert, active; no dysmorphic features noted. Talkative, good historian, seemed fatigued Skin: no rashes or lesions noted. No bruising nor abnormal scars noted . HEENT: Normal shape. BOB, EOMI; normal appearing iris/pupil. Pale appearance to the eyes. Oropharynx appeared normal. Palate normal. Ears appeared normal, normal rotation. No pits/creases/tags noted. Cardiovascular: Normal S1/S2, RRR; no murmurs, rubs or gallops noted. Symmetrical pulses. Respiratory: clear to auscultation bilaterally. GI/: soft, non-tender; normal bowel sounds. No organomegaly appreciated. Musculoskeletal: normal appearing digits. No syndactyly, clinodactyly, polydactyly noted. Feet appeared normal, no evidence of metatarsal adduction, flat feet. Normal joint mobility. Neurological: Development consistent with history given. Normal strength and tone. No facial asymmetry. Pupils are round and reactive to light. EOMI. Non ambulatory today. No abnormal posturing or spasticity noted. Relevant Labs/Studies: Diagnostic studies: No visits with results within 3 Month(s) from this visit. Latest known visit with results is: Appointment on 06/03/2024 Component Date Value Ref Range Status SODIUM 06/03/2024 133 (L) 135 - 145 mmol/L Final POTASSIUM 06/03/2024 5.7 (H) 3.6 - 4.9 mmol/L Final CHLORIDE 06/03/2024 102 98 - 110 mmol/L Final CARBON DIOXIDE 06/03/2024 20 (L) 21 - 30 mmol/L Final BUN 06/03/2024 47 (*H) 5 - 18 mg/dL Final CREATININE 06/03/2024 2.13 (*H) 0.5 - 1 mg/dL Final GLUCOSE 06/03/2024 89 60 - 115 mg/dL Final CALCIUM 06/03/2024 9.4 8 - 10.5 mg/dL Final TOTAL PROTEIN 06/03/2024 8.0 6.5 - 8.6 g/dL Final ALBUMIN 06/03/2024 4.5 3.4 - 5.2 g/dL Final ALT 06/03/2024 137 (H) <36 U/L Final AST 06/03/2024 78 (H) 15 - 50 U/L Final ALKALINE PHOSPHATASE 06/03/2024 228 (H) 50 - 136 U/L Final BILIRUBIN TOTAL (TBILR) 06/03/2024 0.2 0.1 - 1.0 mg/dL Final FREE CARNITINE 06/03/2024 50.71 22 - 52 umol/L Final TOTAL CARNITINE 06/03/2024 67.85 (H) 27 - 66 umol/L Final NOTE: 06/03/2024 Final Value:This test was developed and its performance characteristics determined by [facility]. It has not been cleared or approved by the FDA. The laboratory is regulated under CLIA as qualified to perform high complexity testing. This test is used for clinical purposes. It should not be regarded as investigational or for research. CK 06/03/2024 257 <289 U/L Final Assessment and plan at the beginning of note. 78 minutes were spent by the Attending (precepting physician) or Advanced Practice Provider time in the care of this patient. This includes face to face time and non face to face including the following: Preparing to see the patient (review of tests) Obtaining and/or reviewing separately obtained history Counseling and educating the patient/family/caregiver Ordering medications, tests, or procedures Referring/communicating with other health pediatric care coordinator Independently interpreting results and communicating results to the patient/family/caregiver Care-coordination Thank you for including us in the care of this patient. Emmett Hyman MD documented in this encounter [facility] 07-23-2025 Instructions Emmett Hyman MD - 07/23/2025 1:45 PM EDT It was a pleasure to see y'all today! I am sorry to hear about the worsening symptoms. We will see if the MCT can help and then also get you referred to hematology at [facility] for follow up of your anemia. Follow up with us in 1 year. documented in this encounter [facility] 07-20-2025 Discharge summary Note Date/Time July 20, 2025 11:27am [facility] Medical Records Department [address] [place] [address] Discharge Summary 07/20/25 0907 MR#: [id number] Acct: [id number] Name: RADHA SHAFER Rep #:[id number] : 1960 65 From: [facility] Perdomo PCP: Dr. Jennifer Gordon MD Status:ADM IN Location: [place] [address] Providers Date of Admission: 07/17/25 Date of Discharge: 07/20/25 Primary Care Physician: Dr. 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 She states this happens about every 2 months ? She was diagnosed in her 30s ? 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 07/20: She completed D10 half-normal saline. ? Continue with her home levocarnitine. On 2 L of oxygen. On oxygen testing, she is on baseline 2 L at rest and 4 L on exertion, home parameters. Patient isbeing discharged home. 2. Chronic comorbidities: Essential HTN/HLD/CAD/PAD/history of NSVT ? Continue with her home blood pressure medications ? Will monitor make adjustments as necessary ? Continue with lovastatin ? Continue with aspirin 3. Hypothyroidism ? Stable this is status post thyroidectomy ? Continue with Synthroid ? Her TSH is low, however T3 is normal at 2.6 4. CKD 4 ? Creatinine is on baseline, 1.37-1.47. ? Continue to monitor renal function which is at baseline 5. Iron deficiency anemia ? Chronic, hemoglobin stays between 10 to 11 g%. ? Continue replacement 6. Anxiety/depression ? Stable ? Continue with medications 7. GERD ? Stable ? Continue with PPI DVT: Heparin Discharge medication reconciliation done. Discharge follow-up instructions completed. Discharge process discussed with the patient and all questions wereanswered to patient's satisfaction. Follow with PCP in 1 to 2 weeks Total time spent, exact 35 minutes on discharge meds reconciliation, examination, coordination of care with nurses and ancillary staff, review of imaging and blood test and discussion with the patient on follow-up instructions. Medications at Discharge Home Medications Disability Placard #1 ea 02/07/23 aspirin 81 mg tablet,delayed release (Adult Low Dose Aspirin) 81 mg PO DAILY heart health 04/18/23 cholecalciferol (vitamin D3) 50 mcg (2,000 unit) capsule 50 mcg PO DAILY [id number] ferrous sulfate 325 mg (65 mg iron) tablet 325 mg PO DAILY supplement 04/18/23 levocarnitine 330 mg tablet 330 mg PO TID vitamin 04/18/23 compr.stocking,thigh,short,lrg #24 ea 02/29/24 vitamin E (dl, acetate) 45 mg (100 unit) capsule 45 mg PO QDAY supplement 01/06/25 metoprolol tartrate 100 mg tablet 100 mg PO BID blood pressure #180 tabs 02/18/25 albuterol sulfate 90 mcg/actuation aerosol inhaler 2 puff inhalation Q6H PRN copd 04/04/25 fluticasone fur. 200 mcg-umeclid 62.5 mcg-vilant 25 mcg inhalat.powder (Trelegy Ellipta) 1 inh inhalation DAILY breathing #3 ea 04/04/25 doxepin 100 mg capsule 100 mg PO QHS sleep #30 caps 04/08/25 tizanidine 4 mg tablet See Rx Instructions .Route .COMPLEX spasms #150 tabs 04/08/25 lisinopril 20 mg tablet 10 mg PO QDAY hypertension 04/16/25 duloxetine 60 mg capsule,delayed release 60 mg PO DAILY mental health #90 caps 04/17/25 nifedipine 30 mg tablet,extended release 30 mg PO DAILY blood pressure #90 tabs 04/17/25 omeprazole 40 mg capsule,delayed release 40 mg PO DAILY for acid reflux #90 caps04/17/25 levothyroxine 175 mcg tablet 175 mcg PO DAILY thyroid #90 tabs 05/16/25 albuterol sulfate 2.5 mg/3 mL (0.083 %) solution for nebulization 2.5 mg inhalation Q6 PRN wheezing 06/17/25 lovastatin 10 mg tablet 10 mg PO QPM cholesterol #90 tabs 07/17/25 OXYGEN - Supplemental ([facility] INFORMATIONAL USE ONLY) 07/18/25 Physical Exam Narrative Seen and examined. Patient stated her myalgia/muscle pain has resolved. She follows professor of architecture forCPT 2 deficiency in [facility] [place]. No diarrhea. No chest pain or shortness of breath. Denies dysuria. Is moving bowels. Physical exam General: Alert, Oriented x3, Cooperative. 36.8 kg/m? HEENT: Atraumatic, PERRLA, EOMI, Normocephalic. Oral: No Gingival or Mucosal Lesions/ Ulcerations Neck: Supple, No JVD, Negative Carotid Bruits Chest wall/Lungs: Air entry diminished in bilateral lung bases. No crepitation/rhonchi Cardiovascular: Regular rate and rhythm, Normal S1,S2, No M/G/R Abdomen: Bowel Sounds Present, Soft, Non Tender, Non-Distended : No dysuria. No renal angle tenderness. No suprapubic tenderness. Extremities: No edema, Capillary Refill Less than 3 Seconds Skin: No rashes, No breakdown Musculoskeletal: No Tenderness to Palpation of Joints or Extremities. ROM full. Neurological: Cranial nerves II-XII grossly intact, DTR 2+/4. No acute focal neurological deficit. Psych/Mental Status: Normal Affect, Appropriate. Weight / BMI Weight Weight: 220 lb 14.451 oz Body Mass Index (BMI) 36.7 ABG / Lab / Microbiology Data 07/20/25 05:34 07/20/25 05:34 Laboratory: Laboratory Results - last 24 hr 07/20/25 05:34: WBC 6.9, RBC 3.87 L, Hgb 10.4 L, Hct 32.6 L, MCV 84.2, MCH 26.9 L, MCHC 31.9 L, RDW Std Deviation 40.2, RDW Coeff of Esvin 13.2, Plt Count 238, MPV 10.1, Immature Gran % (Auto) 0.400, Neut % (Auto) 67.9, Lymph % (Auto) 21.1,[place] % (Auto) 7.2, Eos % (Auto) 2.7, Baso % (Auto) 0.7, Absolute Neuts (auto) 4.7, Absolute Lymphs (auto) 1.46, Nucleated RBC % 0, Sodium 130 L, Potassium 4.6, Chloride 94 L, Carbon Dioxide 26.4, Anion Gap 10, BUN 12, Creatinine 1.47 H, Estim Creat Clear Calc 43.55 L, Est GFR (MDRD) Non-Af 39 L, BUN/Creatinine Ratio 8.2 L, Glucose 97, Calcium 9.0 D/C Instructions Weight Bearing Status: Weight bearing as tolerated Call your doctor if you observe: Fever of 101 or Higher, Coldness, Increased Pain, Numbness or Tingling, Change in Color, Inability to urinate, Inability to have a bowel movement, Shortness of breath, Dizziness, Fainting spells, Swellingin the ankles, Chest pain, Prolonged hiccupping, Increased palpitations (irregular heartbeat) and Calf discomfort DC O2, CPAP, BIPAP Needs Home O2 Discharge instructions: No When: IN 2 WEEKS Meaningful Use Info Meaningful Use Meaningful Use Diagnoses (Choose all that apply): None applicable Discharge Plan Admission Admit Date/Time: 07/17/25 23:28 Primary Reason for Your Visit: CPT-II deficiency symtoms, muscle pain Attending Provider: Vincent Hood Primary Care Provider: Jennifer Gordon Consulting Providers: Elana Deshpande; Arnel Cano Discharge Orders/Prescriptions Prescriptions: Continued (DME) Disability Placard See Rx Instructions .Route .MEDSUPPLY Qty: 1 0RF Rx Instructions: Expiration 02/07/2026 levocarnitine 330 mg tablet 330 mg PO TID aspirin [Adult Low Dose Aspirin] 81 mg tablet,delayed release (DR/EC) 81 mg PO DAILY cholecalciferol (vitamin D3) 50 mcg (2,000 unit) capsule 50 mcg PO DAILY ferrous sulfate 325 mg (65 mg iron) tablet 325 mg PO DAILY (DME) compr.stocking,thigh,short,lrg Misc See Rx Instructions .Route Qty: 24 0RF Rx Instructions: As directed albuterol sulfate 90 mcg/actuation HFA aerosol inhaler 2 puff inhalation Q6H PRN (Reason: copd) Trelegy Ellipta 200-62.5-25 mcg blister with device 1 inh inhalation DAILY Qty: 3 3RF lisinopril 20 mg tablet 10 mg PO QDAY vitamin E (dl, acetate) 45 mg (100 unit) capsule 45 mg PO QDAY albuterol sulfate 2.5 mg /3 mL (0.083 %) solution for nebulization 2.5 mg inhalation Q6 PRN (Reason: wheezing) (DME) OXYGEN - Supplemental ([facility] INFORMATIONAL USE ONLY) Gas See Rx Instructions .ROUTE Rx Instructions: As directed metoprolol tartrate 100 mg tablet 100 mg PO BID Qty: 180 3RF Patient Comments: ONLY TAKES 75 MG I BREAK THE TABLETS UP AT HOME doxepin 100 mg capsule 100 mg PO QHS Qty: 30 5RF tizanidine 4 mg tablet See Rx Instructions .ROUTE .COMPLEX Qty: 150 5RF Rx Instructions: Take 1 tablet orally twice daily and 3 tablets nightly as needed for muscle pain/spasm. omeprazole 40 mg capsule,delayed release(DR/EC) 40 mg PO DAILY Qty: 90 1RF duloxetine 60 mg capsule,delayed release(DR/EC) 60 mg PO DAILY Qty: 90 1RF nifedipine 30 mg tablet extended release 30 mg PO DAILY Qty: 90 1RF levothyroxine 175 mcg tablet 175 mcg PO DAILY Qty: 90 0RF Patient Comments: pt has been taking at night lovastatin 10 mg tablet 10 mg PO QPM Qty: 90 1RF Referrals / Follow Up: Jennifer Gordon MD [Primary Care Provider] - Within 2 Weeks Disposition Disposition (needs filled in before D/C Order can be placed): Home, Self Care Charges/Coding Visit Charges Inpatient E&M: 96427 Disch Hosp >30min 07/20/25 1127 <Electronically signed by Vincent Hood MD> Cosigner Signature (if applicable): CC: Dr. Jennifer Gordon MD; Dr. Vincent Hood MD~ Signed [facility] Work Phone: [phone]) 686-140809-14-2025 Discharge summary Author Vincent Hood [facility] Note Date/Time July 20, 2025 11:26am [facility] Medical Records Department [address] [place] [address] Instructions for Home/Discharge Instructions 07/20/25 0901 MR#: [id number] Acct: [id number] Name: RADHA SHAFER Rep #:[id number] : 1960 65 From: Vincent Perdomo PCP: Dr. Jennifer Gordon MD Status:ADM IN Discharge Instructions DC O2, CPAP, BIPAP needs Home O2 Discharge instructions: No Dressing / Incision Discharge Activity: Return to Normal Activity Weight Bearing Status: Weight bearing as tolerated Dressing / Incision Call your doctor if you observe: Fever of 101 or Higher, Coldness, Increased Pain, Numbness or Tingling, Change in Color, Inability to urinate, Inability to have a bowel movement, Shortness of breath, Dizziness, Fainting spells, Swellingin the ankles, Chest pain, Prolonged hiccupping, Increased palpitations (irregular heartbeat) and Calf discomfort Follow Up Care When: IN 2 WEEKS Test Results: Test results from this visit will be discussed in further detail at your follow- up appointment, if applicable. Discharge Plan Admission Admit Date/Time: 07/17/25 23:28 Primary Reason for Your Visit: CPT-II deficiency symtoms, muscle pain Attending Provider: Vincent Hood Primary Care Provider: Jennifer Gordon Consulting Providers: Elana Deshpande; Arnel Cano Discharge Orders/Prescriptions Prescriptions: Continued (DME) Disability Placard See Rx Instructions .Route .MEDSUPPLY Qty: 1 0RF Rx Instructions: Expiration 02/07/2026 levocarnitine 330 mg tablet 330 mg PO TID aspirin [Adult Low Dose Aspirin] 81 mg tablet,delayed release (DR/EC) 81 mg PO DAILY cholecalciferol (vitamin D3) 50 mcg (2,000 unit) capsule 50 mcg PO DAILY ferrous sulfate 325 mg (65 mg iron) tablet 325 mg PO DAILY (DME) compr.stocking,thigh,short,lrg Misc See Rx Instructions .Route Qty: 24 0RF Rx Instructions: As directed albuterol sulfate 90 mcg/actuation HFA aerosol inhaler 2 puff inhalation Q6H PRN (Reason: copd) Trelegy Ellipta 200-62.5-25 mcg blister with device 1 inh inhalation DAILY Qty: 3 3RF lisinopril 20 mg tablet 10 mg PO QDAY vitamin E (dl, acetate) 45 mg (100 unit) capsule 45 mg PO QDAY albuterol sulfate 2.5 mg /3 mL (0.083 %) solution for nebulization 2.5 mg inhalation Q6 PRN (Reason: wheezing) (DME) OXYGEN - Supplemental ([facility] INFORMATIONAL USE ONLY) Gas See Rx Instructions .ROUTE Rx Instructions: As directed metoprolol tartrate 100 mg tablet 100 mg PO BID Qty: 180 3RF Patient Comments: ONLY TAKES 75 MG I BREAK THE TABLETS UP AT HOME doxepin 100 mg capsule 100 mg PO QHS Qty: 30 5RF tizanidine 4 mg tablet See Rx Instructions .ROUTE .COMPLEX Qty: 150 5RF Rx Instructions: Take 1 tablet orally twice daily and 3 tablets nightly as needed for muscle pain/spasm. omeprazole 40 mg capsule,delayed release(DR/EC) 40 mg PO DAILY Qty: 90 1RF duloxetine 60 mg capsule,delayed release(DR/EC) 60 mg PO DAILY Qty: 90 1RF nifedipine 30 mg tablet extended release 30 mg PO DAILY Qty: 90 1RF levothyroxine 175 mcg tablet 175 mcg PO DAILY Qty: 90 0RF Patient Comments: pt has been taking at night lovastatin 10 mg tablet 10 mg PO QPM Qty: 90 1RF Referrals / Follow Up: Jennifer Gordon MD [Primary Care Provider] - Within 2 Weeks Disposition Disposition (needs filled in before D/C Order can be placed): Home, Self Care 07/20/25 1126<Electronically signed by Vincent Hood MD>Vincent Hood MD CC: Dr. Jennifer Gordon MD; Dr. Elana Deshpande DO; Dr. Arnel Cano MD ~ Signed [facility] Work Phone: [phone] Discharge summary [facility] Medical Records Department [address] [place] [address] Discharge Summary 07/20/25 0907 MR#: [id number] Acct: [id number] Name: RADHA SHAFER Rep #:[id number] : 1960 65 From: Vincent Perdomo PCP: Dr. Jennifer Gordon MD Status:ADM IN Location: [place] [address] Providers Date of Admission: 07/17/25 Date of Discharge: 07/20/25 Primary Care Physician: Dr. 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 She states this happens about every 2 months ? She was diagnosed in her 30s ? 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 07/20: She completed D10 half-normal saline. ? Continue with her home levocarnitine. On 2 L of oxygen. On oxygen testing, she is on baseline 2 Lat rest and 4 L on exertion, home parameters. Patient isbeing discharged home. 2. Chronic comorbidities: Essential HTN/HLD/CAD/PAD/history of NSVT ? Continue with her home blood pressure medications ? Will monitor make adjustments as necessary ? Continue with lovastatin ? Continue with aspirin 3. Hypothyroidism ? Stable this is status post thyroidectomy ? Continue with Synthroid ? Her TSH is low, however T3 is normal at 2.6 4. CKD 4 ? Creatinine is on baseline, 1.37-1.47. ? Continue to monitor renal function which is at baseline 5. Iron deficiency anemia ? Chronic, hemoglobin stays between 10 to 11 g%. ? Continue replacement 6. Anxiety/depression ? Stable ? Continue with medications 7. GERD ? Stable ? Continue with PPI DVT: Heparin Discharge medication reconciliation done. Discharge follow-up instructions completed. Discharge process discussed with the patient and all questions wereanswered to patient's satisfaction. Follow with PCP in 1 to 2 weeks Total time spent, exact 35 minutes on discharge meds reconciliation, examination, coordination of care with nurses and ancillary staff, review of imaging and blood test and discussion with the patient on follow-up instructions. Medications at Discharge Home Medications Disability Placard #1 ea 02/07/23 aspirin 81 mg tablet,delayed release (Adult Low Dose Aspirin) 81 mg PO DAILY heart health 04/18/23 cholecalciferol (vitamin D3) 50 mcg (2,000 unit) capsule 50 mcg PO DAILY padbkdw54/13/23 ferrous sulfate 325 mg (65 mg iron) tablet 325 mg PO DAILY supplement 04/18/23 levocarnitine 330 mg tablet 330 mg PO TID vitamin 04/18/23 compr.stocking,thigh,short,lrg #24 ea 02/29/24 vitamin E (dl, acetate) 45 mg (100 unit) capsule 45 mg PO QDAY supplement 01/06/25 metoprolol tartrate 100 mg tablet 100 mg PO BID blood pressure #180 tabs 02/18/25 albuterol sulfate 90 mcg/actuation aerosol inhaler 2 puff inhalation Q6H PRN copd 04/04/25 fluticasone fur. 200 mcg-umeclid 62.5 mcg-vilant 25 mcg inhalat.powder (Trelegy Ellipta) 1 inh inhalation DAILY breathing #3 ea 04/04/25 doxepin 100 mg capsule 100 mg PO QHS sleep #30 caps 04/08/25 tizanidine 4 mg tablet See Rx Instructions .Route .COMPLEX spasms #150 tabs 04/08/25 lisinopril 20 mg tablet 10 mg PO QDAY hypertension 04/16/25 duloxetine 60 mg capsule,delayed release 60 mg PO DAILY mental health #90 caps 04/17/25 nifedipine 30 mg tablet,extended release 30 mg PO DAILY blood pressure #90 tabs 04/17/25 omeprazole 40 mg capsule,delayed release 40 mg PO DAILY for acid reflux #90 caps04/17/25 levothyroxine 175 mcg tablet 175 mcg PO DAILY thyroid #90 tabs 05/16/25 albuterol sulfate 2.5 mg/3 mL (0.083 %) solution for nebulization 2.5 mg inhalation Q6 PRN [id number]/12/25 lovastatin 10 mg tablet 10 mg PO QPM cholesterol #90 tabs 07/17/25 OXYGEN - Supplemental ([facility] INFORMATIONAL USE ONLY) 07/18/25 Physical Exam Narrative Seen and examined. Patient stated her myalgia/muscle pain has resolved. [facility] No diarrhea. No chest pain or shortness of breath. Denies dysuria. Is moving bowels. Physical exam General: Alert, Oriented x3, Cooperative. 36.8 kg/m? HEENT: Atraumatic, PERRLA, EOMI, Normocephalic. Oral: No Gingival or Mucosal Lesions/ Ulcerations Neck: Supple, No JVD, Negative Carotid Bruits Chest wall/Lungs: Air entry diminished in bilateral lung bases. No crepitation/rhonchi Cardiovascular: Regular rate and rhythm, Normal S1,S2, No M/G/R Abdomen: Bowel Sounds Present, Soft, Non Tender, Non-Distended : No dysuria. No renal angle tenderness. No suprapubic tenderness. Extremities: No edema, Capillary Refill Less than 3 Seconds Skin: No rashes, No breakdown Musculoskeletal: No Tenderness to Palpation of Joints or Extremities. ROM full. Neurological: Cranial nerves II-XII grossly intact, DTR 2+/4. No acute focal neurological deficit. Psych/Mental Status: Normal Affect, Appropriate. Weight / BMI Weight Weight: 220 lb 14.451 oz Body Mass Index (BMI) 36.7 ABG / Lab / Microbiology Data 07/20/25 05:34 07/20/25 05:34 Laboratory: Laboratory Results - last 24 hr 07/20/25 05:34: WBC 6.9, RBC 3.87 L, Hgb 10.4 L, Hct 32.6 L, MCV 84.2, MCH 26.9 L, MCHC 31.9 L, RDWStd Deviation 40.2, RDW Coeff of Esvin 13.2, Plt Count 238, MPV 10.1, Immature Gran % (Auto) 0.400, Neut % (Auto) 67.9, Lymph % (Auto) 21.1,[place] % (Auto) 7.2, Eos % (Auto) 2.7, Baso % (Auto) 0.7, Absolute Neuts (auto) 4.7, Absolute Lymphs (auto) 1.46, Nucleated RBC % 0, Sodium 130 L, Potassium 4.6, Ch loride 94 L, Carbon Dioxide 26.4, Anion Gap 10, BUN 12, Creatinine 1.47 H, Estim Creat Clear Calc 43.55 L, Est GFR (MDRD) Non-Af 39 L, BUN/Creatinine Ratio 8.2 L, Glucose 97, Calcium 9.0 D/C Instructions Weight Bearing Status: Weight bearing as tolerated Call your doctor if you observe: Fever of 101 or Higher, Coldness, Increased Pain, Numbness or Tingling, Change in Color, Inability to urinate, Inability to have a bowel movement, Shortness of breath, Dizziness, Fainting spells, Swellingin the ankles, Chest pain, Prolonged hiccupping, Increased palpitations (irregular heartbeat) and Calf discomfort DC O2, CPAP, BIPAP Needs Home O2 Discharge instructions: No When: IN 2 WEEKS Meaningful Use Info Meaningful Use Meaningful Use Diagnoses (Choose all that apply): None applicable Discharge Plan Admission Admit Date/Time: 07/17/25 23:28 Primary Reason for Your Visit: CPT-II deficiency symtoms, muscle pain Attending Provider: Vincent Hood Primary Care Provider: Jennifer Gordon Consulting Providers: Elana Deshpande; Arnel Cano Discharge Orders/Prescriptions Prescriptions: Continued (DME) Disability Placard See Rx Instructions .Route .MEDSUPPLY Qty: 1 0RF Rx Instructions: Expiration 02/07/2026 levocarnitine 330 mg tablet 330 mg PO TID aspirin [Adult Low Dose Aspirin] 81 mg tablet,delayed release (DR/EC) 81 mg PO DAILY cholecalciferol (vitamin D3) 50 mcg (2,000 unit) capsule 50 mcg PO DAILY ferrous sulfate 325 mg (65 mg iron) tablet 325 mg PO DAILY (DME) compr.stocking,thigh,short,lrg Misc See Rx Instructions .Route Qty: 24 0RF Rx Instructions: As directed albuterol sulfate 90 mcg/actuation HFA aerosol inhaler 2 puff inhalation Q6H PRN (Reason: copd) Trelegy Ellipta 200-62.5-25 mcg blister with device 1 inh inhalation DAILY Qty: 3 3RF lisinopril 20 mg tablet 10 mg PO QDAY vitamin E (dl, acetate) 45 mg (100 unit) capsule 45 mg PO QDAY albuterol sulfate 2.5 mg /3 mL (0.083 %) solution for nebulization 2.5 mg inhalation Q6 PRN (Reason: wheezing) (DME) OXYGEN - Supplemental ([facility] INFORMATIONAL USE ONLY) Gas See Rx Instructions .ROUTE Rx Instructions: As directed metoprolol tartrate 100 mg tablet 100 mg PO BID Qty: 180 3RF Patient Comments: ONLY TAKES 75 MG I BREAK THE TABLETS UP AT HOME doxepin 100 mg capsule 100 mg PO QHS Qty: 30 5RF tizanidine 4 mg tablet See Rx Instructions .ROUTE .COMPLEX Qty: 150 5RF Rx Instructions: Take 1 tablet orally twice daily and 3 tablets nightly as needed for muscle pain/spasm. omeprazole 40 mg capsule,delayed release(DR/EC) 40 mg PO DAILY Qty: 90 1RF duloxetine 60 mg capsule,delayed release(DR/EC) 60 mg PO DAILY Qty: 90 1RF nifedipine 30 mg tablet extended release 30 mg PO DAILY Qty: 90 1RF levothyroxine 175 mcg tablet 175 mcg PO DAILY Qty: 90 0RF Patient Comments: pt has been taking at night lovastatin 10 mg tablet 10 mg PO QPM Qty: 90 1RF Referrals / Follow Up: Jennifer Gordon MD [Primary Care Provider] - Within 2 Weeks Disposition Disposition (needs filled in before D/C Order can be placed): Home, Self Care Charges/Coding Visit Charges Inpatient E&M: 12558 Disch Hosp >30min 07/20/25 1127 Cosigner Signature (if applicable): CC: Dr. Jennifer Gordon MD; Dr. Vincent Hood MD~ Signed [facility]09-14-2025 Discharge summary [facility] Medical Records Department [address] [place] [address] Instructions for Home/Discharge Instructions 07/20/25 09 MR#: [id number] Acct: [id number] Name: RADHA SHAFER ANIL Rep #:[id number] : 1960 65 From: Vincent Perdomo PCP: Dr. Jennifer Gordon MD Status:ADM IN Discharge Instructions DC O2, CPAP, BIPAP needs Home O2 Discharge instructions: No Dressing / Incision Discharge Activity: Return to Normal Activity Weight Bearing Status: Weight bearing as tolerated Dressing / Incision Call your doctor if you observe: Fever of 101 or Higher, Coldness, Increased Pain, Numbness or Tingling, Change in Color, Inability to urinate, Inability to have a bowel movement, Shortness of breath, Dizziness, Fainting spells, Swellingin the ankles, Chest pain, Prolonged hiccupping, Increased palpitations (irregular heartbeat) and Calf discomfort Follow Up Care When: IN 2 WEEKS Test Results: Test results from this visit will be discussed in further detail at your follow- up appointment, if applicable. Discharge Plan Admission Admit Date/Time: 07/17/25 23:28 Primary Reason for Your Visit: CPT-II deficiency symtoms, muscle pain Attending Provider: Vincent Hood Primary Care Provider: Jennifer Gordon Consulting Providers: Elana Deshpande; Arnel Cano Discharge Orders/Prescriptions Prescriptions: Continued (DME) Disability Placard See Rx Instructions .Route .MEDSUPPLY Qty: 1 0RF Rx Instructions: Expiration 02/07/2026 levocarnitine 330 mg tablet 330 mg PO TID aspirin [Adult Low Dose Aspirin] 81 mg tablet,delayed release (DR/EC) 81 mg PO DAILY cholecalciferol (vitamin D3) 50 mcg (2,000 unit) capsule 50 mcg PO DAILY ferrous sulfate 325 mg (65 mg iron) tablet 325 mg PO DAILY (DME) compr.stocking,thigh,short,lrg Misc See Rx Instructions .Route Qty: 24 0RF Rx Instructions: As directed albuterol sulfate 90 mcg/actuation HFA aerosol inhaler 2 puff inhalation Q6H PRN (Reason: copd) Trelegy Ellipta 200-62.5-25 mcg blister with device 1 inh inhalation DAILY Qty: 3 3RF lisinopril 20 mg tablet 10 mg PO QDAY vitamin E (dl, acetate) 45 mg (100 unit) capsule 45 mg PO QDAY albuterol sulfate 2.5 mg /3 mL (0.083 %) solution for nebulization 2.5 mg inhalation Q6 PRN (Reason: wheezing) (DME) OXYGEN - Supplemental ([facility] INFORMATIONAL USE ONLY) Gas See Rx Instructions .ROUTE Rx Instructions: As directed metoprolol tartrate 100 mg tablet 100 mg PO BID Qty: 180 3RF Patient Comments: ONLY TAKES 75 MG I BREAK THE TABLETS UP AT HOME doxepin 100 mg capsule 100 mg PO QHS Qty: 30 5RF tizanidine 4 mg tablet See Rx Instructions .ROUTE .COMPLEX Qty: 150 5RF Rx Instructions: Take 1 tablet orally twice daily and 3 tablets nightly as needed for muscle pain/spasm. omeprazole 40 mg capsule,delayed release(DR/EC) 40 mg PO DAILY Qty: 90 1RF duloxetine 60 mg capsule,delayed release(DR/EC) 60 mg PO DAILY Qty: 90 1RF nifedipine 30 mg tablet extended release 30 mg PO DAILY Qty: 90 1RF levothyroxine 175 mcg tablet 175 mcg PO DAILY Qty: 90 0RF Patient Comments: pt has been taking at night lovastatin 10 mg tablet 10 mg PO QPM Qty: 90 1RF Referrals / Follow Up: Jennifer Gordon MD [Primary Care Provider] - Within 2 Weeks Disposition Disposition (needs filled in before D/C Order can be placed): Home, Self Care 07/20/25 1126Vincent Hood MD CC: Dr. Jennifer Gordon MD; Dr. Elana Deshpande DO; Dr. Arnel Cano MD ~ Signed [facility]09-14-2025 [facility] Progress note Author Arnel Cano [facility] Note Date/Time July 19, 2025 12:12pm [facility] Medical Records Department [address] [place] [address] Progress Note - Hospitalist 07/19/25 1208 MR#: [id number] Acct: [id number] Name: RADHA SHAFER Rep #:[id number] : 1960 65 From: Arnel parisi MD PCP: Dr. Jennifer Gordon MD Status:ADM IN Location: [place] [address] 1 Subjective Subjective Doing well, feels better. CPK is improved Objective Data Objective Data Vital Signs: Vital Signs Temp Pulse Resp BP Pulse Ox O2 Del Method O2 Flow Rate 97.7 F L 64 15 166/77 H 97 Nasal Cannula 2 07/19/25 09:02 07/19/25 09:02 07/19/25 09:02 07/19/25 09:02 07/19/25 09:02 07/19/25 09:03 07/19/25 09:02 Oxygen Flow Rate (L/min) 2 Oxygen Delivery Method Nasal Cannula Weight: 223 lb 15.834 oz Body Mass Index (BMI) 37.3 Intake & Output: Intake and Output for Last 24 Hours 07/18/25 07/19/25 07/20/25 03:59 03:59 03:59 Intake Total 752.1250 / 752.1250 4137.5375 / 4137.5375 1014.2500 / 1014.2500 Output Total 300 / 300 Balance 752.1250 / 752.1250 3837.5375 / 3837.5375 1014.2500 / 1014.2500 Lab / Micro Data 07/19/25 05:33 07/19/25 05:33 Labs: Laboratory Results - last 24 hr 07/18/25 05:10: Free T3 pg/dL 2.6 07/19/25 05:33: WBC 5.1, RBC 3.78 L, Hgb 10.1 L, Hct 32.2 L, MCV 85.2, MCH 26.7 L, MCHC 31.4 L, RDW Std Deviation 39.4, RDW Coeff of Esvin 12.8, Plt Count 191, MPV 10.0, Immature Gran % (Auto) 0.200, Neut % (Auto) 63.2, Lymph % (Auto) 24.7,[place] % (Auto) 8.3, Eos % (Auto) 2.6, Baso % (Auto) 1.0, Absolute Neuts (auto) 3.2, Absolute Lymphs (auto) 1.25, Nucleated RBC % 0, Sodium 131 L, Potassium 4.6, Chloride 97 L, Carbon Dioxide 25.5, Anion Gap 9, BUN 13, Creatinine 1.37 H,Estim Creat Clear Calc 47.08 L, Est GFR (MDRD) Non-Af 42 L, BUN/Creatinine Ratio9.2 L, Glucose 128 H, Calcium 8.6, Phosphorus 3.6, Total Creatine Kinase 128 Physical Exam Narrative General: Alert, Oriented x3, Cooperative, No apparent distress HEENT: Atraumatic, PERRLA, EOMI, Normocephalic Oral: Moist Mucosa Neck: Supple, No JVD Lungs: Diminished, Normal air movement, No rhonchi, No wheeze, No rales Cardiovascular: Regular rate, Regular Rhythm, Normal S1, Normal S2, No murmurs Abdomen: Soft, Non Tender, Non-Distended, No Hepato-splenomegaly Extremities: No edema, Capillary Refill Less than 3 Seconds Skin: No rashes, No breakdown Musculoskeletal: No Tenderness to Palpation of Joints or Extremities Neurological: No focal neurological deficits, moves all extremities Psych/Mental Status: Normal Affect, Appropriate Assessment & Plan Assessment/Plan (1) Carnitine palmitoyltransferase II deficiency: (2) Myalgia: (3) Generalized weakness: PLAN: Plan 1. 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 She states this happens about every 2 months ? She was diagnosed in her 30s ? 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 Continue with D10 half-normal saline ? Continue with her home levocarnitine 2. Essential HTN/HLD/CAD/PAD/history of NSVT ? Continue with her home blood pressure medications ? Will monitor make adjustments as necessary ? Continue with lovastatin ? Continue with aspirin 3. Hypothyroidism ? Stable this is status post thyroidectomy ? Continue with Synthroid ? Her TSH is low, however T3 is normal at 2.6 4. CKD 4 ? Stable ? Continue to monitor renal function which is at baseline 5. Iron deficiency anemia ? Stable ? Continue replacement 6. Anxiety/depression ? Stable ? Continue with medications 7. GERD ? Stable ? Continue with PPI DVT: Heparin Charges/Coding Visit Charges Inpatient E&M: 14234 Subs Hosp L2 07/19/25 1212 <Electronically signed by Arnel Cano MD> Cosigner Signature (if applicable): CC: ~ Signed [facility] Work Phone: 1(220) 729-315009-13-2025 Progress note [facility] Medical Records Department [address] [place] [address] Progress Note - Hospitalist 07/19/25 1208 MR#: [id number] Acct: [id number] Name: RADHA SHAFER Rep #:[id number] : 1960 65 From: Arnel parisi MD PCP: Dr. Jennifer Gordon MD Status:ADM IN Location: [place] [address]- Subjective Subjective Doing well, feels better. CPK is improved Objective Data Objective Data Vital Signs: Vital Signs Temp Pulse Resp BP Pulse Ox O2 Del Method O2 Flow Rate 97.7 F L 64 15 166/77 H 97 Nasal Cannula 2 07/19/25 09:02 07/19/25 09:02 07/19/25 09:02 07/19/25 09:02 07/19/25 09:02 07/19/25 09:03 07/19/25 09:02 Oxygen Flow Rate (L/min) 2 Oxygen Delivery Method Nasal Cannula Weight: 223 lb 15.834 oz Body Mass Index (BMI) 37.3 Intake & Output: Intake and Output for Last 24 Hours 07/18/25 07/19/25 07/20/25 03:59 03:59 03:59 Intake Total 752.1250 / 752.1250 4137.5375 / 4137.5375 1014.2500 / 1014.2500 Output Total 300 / 300 Balance 752.1250 / 752.1250 3837.5375 / 3837.5375 1014.2500 / 1014.2500 Lab / Micro Data 07/19/25 05:33 07/19/25 05:33 Labs: Laboratory Results - last 24 hr 07/18/25 05:10: Free T3 pg/dL 2.6 07/19/25 05:33: WBC 5.1, RBC 3.78 L, Hgb 10.1 L, Hct 32.2 L, MCV 85.2, MCH 26.7 L, MCHC 31.4 L, RDWStd Deviation 39.4, RDW Coeff of Esvin 12.8, Plt Count 191, MPV 10.0, Immature Gran % (Auto) 0.200, Neut % (Auto) 63.2, Lymph % (Auto) 24.7,[place] % (Auto) 8.3, Eos % (Auto) 2.6, Baso % (Auto) 1.0, Absolute Neuts (auto) 3.2, Absolute Lymphs (auto) 1.25, Nucleated RBC % 0, Sodium 131 L, Potassium 4.6, Ch loride 97 L, Carbon Dioxide 25.5, Anion Gap 9, BUN 13, Creatinine 1.37 H,Estim Creat Clear Calc 47.08 L, Est GFR (MDRD) Non-Af 42 L, BUN/Creatinine Ratio9.2 L, Glucose 128 H, Calcium 8.6, Phosphorus 3.6, Total Creatine Kinase 128 Physical Exam Narrative General: Alert, Oriented x3, Cooperative, No apparent distress HEENT: Atraumatic, PERRLA, EOMI, Normocephalic Oral: Moist Mucosa Neck: Supple, No JVD Lungs: Diminished, Normal air movement, No rhonchi, No wheeze, No rales Cardiovascular: Regular rate, Regular Rhythm, Normal S1, Normal S2, No murmurs Abdomen: Soft, Non Tender, Non-Distended, No Hepato-splenomegaly Extremities: No edema, Capillary Refill Less than 3 Seconds Skin: No rashes, No breakdown Musculoskeletal: No Tenderness to Palpation of Joints or Extremities Neurological: No focal neurological deficits, moves all extremities Psych/Mental Status: Normal Affect, Appropriate Assessment & Plan Assessment/Plan (1) Carnitine palmitoyltransferase II deficiency: (2) Myalgia: (3) Generalized weakness: PLAN: Plan 1. 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 She states this happens about every 2 months ? She was diagnosed in her 30s ? 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 Continue with D10 half-normal saline ? Continue with her home levocarnitine 2. Essential HTN/HLD/CAD/PAD/history of NSVT ? Continue with her home blood pressure medications ? Will monitor make adjustments as necessary ? Continue with lovastatin ? Continue with aspirin 3. Hypothyroidism ? Stable this is status post thyroidectomy ? Continue with Synthroid ? Her TSH is low, however T3 is normal at 2.6 4. CKD 4 ? Stable ? Continue to monitor renal function which is at baseline 5. Iron deficiency anemia ? Stable ? Continue replacement 6. Anxiety/depression ? Stable ? Continue with medications 7. GERD ? Stable ? Continue with PPI DVT: Heparin Charges/Coding Visit Charges Inpatient E&M: 87931 Subs Hosp L2 07/19/25 1212 Cosigner Signature (if applicable): CC: ~ Signed [facility]09-12-2025 Progress note Author Arnel Cano [facility] Note Date/Time July 18, 2025 2:16pm [facility] Medical Records Department [address] [place] [address] Progress Note - Hospitalist 07/18/25 1401 MR#: [id number] Acct: [id number] Name: RADHA SHAFER Rep #:[id number] : 1960 65 From: Arnel parisi MD PCP: Dr. Jennifer Gordon MD Status:ADM IN Location: [place] [address] Subjective Subjective Feels better than when she came in, no issues overnight Objective Data Objective Data Vital Signs: Vital Signs Temp Pulse Resp BP Pulse Ox O2 Del Method O2 Flow Rate 96.9 F L 70 18 147/83 H 98 Room Air 2 07/18/25 10:00 07/18/25 13:02 07/18/25 13:02 07/18/25 10:00 07/18/25 10:00 07/18/25 10:00 07/18/25 10:00 Oxygen Flow Rate (L/min) 2 Oxygen Delivery Method Room Air Weight: 221 lb 5.506 oz Body Mass Index (BMI) 36.8 Intake & Output: Intake and Output for Last 24 Hours 07/17/25 07/18/25 07/19/25 03:59 03:59 03:59 Intake Total 752.1250 / 752.1250 1769.2500 / 1769.2500 Output Total 300 / 300 Balance 752.1250 / 752.1250 1469.2500 / 1469.2500 Lab / Micro Data 07/18/25 05:10 07/18/25 05:10 Labs: Laboratory Results - last 24 hr 07/17/25 20:56: WBC 7.7, RBC 4.12 L, Hgb 11.0 L, Hct 35.4 L, MCV 85.9, MCH 26.7 L, MCHC 31.1 L, RDW Std Deviation 41.0, RDW Coeff of Esvin 13.2, Plt Count 254, MPV 10.1, Immature Gran % (Auto) 0.300, Neut % (Auto) 72.5 H, Lymph % (Auto) 18.0 L, [place] % (Auto) 6.6, Eos % (Auto) 1.6, Baso % (Auto) 1.0, Absolute Neuts (auto) 5.6, Absolute Lymphs (auto) 1.39, Nucleated RBC % 0, Sodium 130 L, Potassium 5.9 H, Chloride 94 L, Carbon Dioxide 26.8, Anion Gap 9, BUN 21 H, Creatinine 1.73 H, Estim Creat Clear Calc 37.32 L, Est GFR (MDRD) Non-Af 32 L, BUN/Creatinine Ratio 11.9, Glucose 88, Lactic Acid < 1.0, Calcium 8.7, Total Bilirubin 0.20, AST 35 H, ALT 16, Alkaline Phosphatase 89, Total Creatine [id number] H, Total Protein 7.1, Albumin 3.9, Globulin 3.2, Albumin/Globulin Ratio 1.2 07/18/25 00:10: Sodium 131 L, Potassium 4.8, Chloride 94 L, Carbon Dioxide 27.6,Anion Gap 9, BUN 20 H, Creatinine 1.70 H, Estim Creat Clear Calc 37.57 L, Est GFR (MDRD) Non-Af 33 L, BUN/Creatinine Ratio 11.7, Glucose 137 H, Calcium 8.8, Magnesium 2.1 07/18/25 01:30: Urine Color Straw, Urine Clarity Clear, Urine pH 7.0, Ur Specific [place] 1.010, Urine Protein 30 H, Urine Glucose (UA) Normal, Urine Ketones Negative, Urine Occult Blood Negative, Urine Nitrite Negative, Urine Bilirubin Negative, Urine Urobilinogen Normal, Ur Leukocyte Esterase Negative, Urine RBC 0-5 SEEN, Urine WBC 0-5 SEEN, Ur Squamous Epith Cells 0-5 SEEN, Urine Bacteria 0 SEEN, Urine Mucus 0 SEEN 07/18/25 05:10: WBC 6.4, RBC 3.63 L, Hgb 9.7 L, Hct 31.0 L, MCV 85.4, MCH 26.7 L, MCHC 31.3 L, RDW Std Deviation 39.8, RDW Coeff of Esvin 12.9, Plt Count 210, MPV9.8, Immature Gran % (Auto) 0.200, Neut % (Auto) 63.7, Lymph % (Auto) 24.1, [place]% (Auto) 8.2, Eos % (Auto) 3.0, Baso % (Auto) 0.8, Absolute Neuts (auto) 4.1, Absolute Lymphs (auto) 1.55, Nucleated RBC % 0, Sodium 129 L, Potassium 4.4, Chloride 94 L, Carbon Dioxide 25.8, Anion Gap 10, BUN 19, Creatinine 1.57 H, Estim Creat Clear Calc 40.82 L, Est GFR (MDRD) Non-Af 36 L, BUN/Creatinine Ratio 11.8, Glucose 138 H, Calcium 8.6, Phosphorus 3.6, Total Bilirubin < 0.15, AST 27, ALT 13, Alkaline Phosphatase 81, Total Protein 6.3, Albumin 3.5, Globulin 2.8, Albumin/Globulin Ratio 1.2, TSH 0.077 L Physical Exam Narrative General: Alert, Oriented x3, Cooperative, No apparent distress HEENT: Atraumatic, PERRLA, EOMI, Normocephalic Oral: Moist Mucosa Neck: Supple, No JVD Lungs: Diminished, Normal air movement, No rhonchi, No wheeze, No rales Cardiovascular: Regular rate, Regular Rhythm, Normal S1, Normal S2, No murmurs Abdomen: Soft, Non Tender, Non-Distended, No Hepato-splenomegaly Extremities: No edema, Capillary Refill Less than 3 Seconds Skin: No rashes, No breakdown Musculoskeletal: No Tenderness to Palpation of Joints or Extremities Neurological: No focal neurological deficits, moves all extremities Psych/Mental Status: Normal Affect, Appropriate Assessment & Plan Assessment/Plan (1) Carnitine palmitoyltransferase II deficiency: (2) Myalgia: (3) Generalized weakness: PLAN: Plan 1. 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 She states this happens about every 2 months ? She was diagnosed in her 30s ? 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 Continue with D10 half-normal saline 2. Essential HTN/HLD/CAD/PAD/history of NSVT ? Continue with her home blood pressure medications ? Will monitor make adjustments as necessary ? Continue with lovastatin ? Continue with aspirin 3. Hypothyroidism ? Stable this is status post thyroidectomy ? Continue with Synthroid ? 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 CKD 4 ? Stable ? Continue to monitor renal function which is at baseline 5. Iron deficiency anemia ? Stable ? Continue replacement 6. Anxiety/depression ? Stable ? Continue with medications 7. GERD ? Stable ? Continue with PPI DVT: Heparin Charges/Coding Visit Charges Inpatient E&M: 17872 Subs Hosp L2 07/18/25 3783 <Electronically signed by Arnel Cano MD> Cosigner Signature (if applicable): CC: ~ Signed [facility] Work Phone: 1(874) 157-869009-12-2025 Progress note [facility] Medical Records Department [address] [place] [address] Progress Note - Hospitalist 07/18/25 1401 MR#: [id number] Acct: [id number] Name: RADHA SHAFER Rep #:[id number] : 1960 65 From: Arnel parisi MD PCP: Dr. Jennifer Gordon MD Status:ADM IN Location: [place] [address] Subjective Subjective Feels better than when she came in, no issues overnight Objective Data Objective Data Vital Signs: Vital Signs Temp Pulse Resp BP Pulse Ox O2 Del Method O2 Flow Rate 96.9 F L 70 18 147/83 H 98 Room Air 2 07/18/25 10:00 07/18/25 13:02 07/18/25 13:02 07/18/25 10:00 07/18/25 10:00 07/18/25 10:00 07/18/25 10:00 Oxygen Flow Rate (L/min) 2 Oxygen Delivery Method Room Air Weight: 221 lb 5.506 oz Body Mass Index (BMI) 36.8 Intake & Output: Intake and Output for Last 24 Hours 07/17/25 07/18/25 07/19/25 03:59 03:59 03:59 Intake Total 752.1250 / 752.1250 1769.2500 / 1769.2500 Output Total 300 / 300 Balance 752.1250 / 752.1250 1469.2500 / 1469.2500 Lab / Micro Data 07/18/25 05:10 07/18/25 05:10 Labs: Laboratory Results - last 24 hr 07/17/25 20:56: WBC 7.7, RBC 4.12 L, Hgb 11.0 L, Hct 35.4 L, MCV 85.9, MCH 26.7 L, MCHC 31.1 L, RDWStd Deviation 41.0, RDW Coeff of Esvin 13.2, Plt Count 254, MPV 10.1, Immature Gran % (Auto) 0.300, Neut % (Auto) 72.5 H, Lymph % (Auto) 18.0 L, [place] % (Auto) 6.6, Eos % (Auto) 1.6, Baso % (Auto) 1.0, Absolute Neuts (auto) 5.6, Absolute Lymphs (auto) 1.39, Nucleated RBC % 0, Sodium 130 L, Potassium 5.9 H, Chloride 94 L, Carbon Dioxide 26.8, Anion Gap 9, BUN 21 H, Creatinine 1.73 H, Estim Creat Clear Calc 37.32 L, Est GFR (MDRD) Non-Af 32 L, BUN/Creatinine Ratio 11.9, Glucose 88, Lactic Acid < 1.0, Calcium 8.7, Total Bilirubin 0.20, AST 35 H, ALT 16, Alkaline Phosphatase 89, Total Creatine [id number] H, Total Protein 7.1, Albumin 3.9, Globulin 3.2, Albumin/Globulin Ratio 1.2 07/18/25 00:10: Sodium 131 L, Potassium 4.8, Chloride 94 L, Carbon Dioxide 27.6,Anion Gap 9, BUN 20H, Creatinine 1.70 H, Estim Creat Clear Calc 37.57 L, Est GFR (MDRD) Non-Af 33 L, BUN/Creatinine Ratio 11.7, Glucose 137 H, Calcium 8.8, Magnesium 2.1 07/18/25 01:30: Urine Color Straw, Urine Clarity Clear, Urine pH 7.0, Ur Specific [place] 1.010, Urine Protein 30 H, Urine Glucose (UA) Normal, Urine Ketones Negative, Urine Occult Blood Negative, Urine Nitrite Negative, Urine Bilirubin Negative, Urine Urobilinogen Normal, Ur Leukocyte Esterase Negative, Urine RBC 0-5 SEEN, Urine WBC 0-5 SEEN, Ur Squamous Epith Cells 0-5 SEEN, Urine Bacteria 0 SEEN, Urine Mucus 0 SEEN 07/18/25 05:10: WBC 6.4, RBC 3.63 L, Hgb 9.7 L, Hct 31.0 L, MCV 85.4, MCH 26.7 L, MCHC 31.3 L, RDW Std Deviation 39.8, RDW Coeff of Esvin 12.9, Plt Count 210, MPV9.8, Immature Gran % (Auto) 0.200, Neut% (Auto) 63.7, Lymph % (Auto) 24.1, [place]% (Auto) 8.2, Eos % (Auto) 3.0, Baso % (Auto) 0.8, AbsoluteNeuts (auto) 4.1, Absolute Lymphs (auto) 1.55, Nucleated RBC % 0, Sodium 129 L, Potassium 4.4, Chloride 94 L, Carbon Dioxide 25.8, Anion Gap 10, BUN 19, Creatinine 1.57 H, Estim Creat Clear Calc 40.82 L, Est GFR (MDRD) Non-Af 36 L, BUN/Creatinine Ratio 11.8, Glucose 138 H, Calcium 8.6, Phosphorus 3.6, Total Bilirubin < 0.15, AST 27, ALT 13, Alkaline Phosphatase 81, Total Protein 6.3, Albumin 3.5, Globulin 2.8, Albumin/Globulin Ratio 1.2, TSH 0.077 L Physical Exam Narrative General: Alert, Oriented x3, Cooperative, No apparent distress HEENT: Atraumatic, PERRLA, EOMI, Normocephalic Oral: Moist Mucosa Neck: Supple, No JVD Lungs: Diminished, Normal air movement, No rhonchi, No wheeze, No rales Cardiovascular: Regular rate, Regular Rhythm, Normal S1, Normal S2, No murmurs Abdomen: Soft, Non Tender, Non-Distended, No Hepato-splenomegaly Extremities: No edema, Capillary Refill Less than 3 Seconds Skin: No rashes, No breakdown Musculoskeletal: No Tenderness to Palpation of Joints or Extremities Neurological: No focal neurological deficits, moves all extremities Psych/Mental Status: Normal Affect, Appropriate Assessment & Plan Assessment/Plan (1) Carnitine palmitoyltransferase II deficiency: (2) Myalgia: (3) Generalized weakness: PLAN: Plan 1. 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 She states this happens about every 2 months ? She was diagnosed in her 30s ? 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 Continue with D10 half-normal saline 2. Essential HTN/HLD/CAD/PAD/history of NSVT ? Continue with her home blood pressure medications ? Will monitor make adjustments as necessary ? Continue with lovastatin ? Continue with aspirin 3. Hypothyroidism ? Stable this is status post thyroidectomy ? Continue with Synthroid ? 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 CKD 4 ? Stable ? Continue to monitor renal function which is at baseline 5. Iron deficiency anemia ? Stable ? Continue replacement 6. Anxiety/depression ? Stable ? Continue with medications 7. GERD ? Stable ? Continue with PPI DVT: Heparin Charges/Coding Visit Charges Inpatient E&M: 33599 Subs Hosp L2 07/18/25 1416 Cosigner Signature (if applicable): CC: ~ Signed [facility]09-12-2025 History and physical note Author Elana Granda [facility] Note Date/Time July 18, 2025 6:22am [facility] Medical Records Department [address] [place] [address] H&P Exam - Hospitalist 07/17/252234 MR#: [id number] Acct: [id number] Name: RADHA SHAFER Rep #:[id number] : 1960 65 From: Elana Adames DO PCP: Dr. Jennifer Gordon MD Status:ADM IN Location: [place] [address] HPI - General General Date of Admission: 07/17/25 Date of Service: 07/17/25 Chief Complaint: Flare of CPT-2 with Muscle Aches and Pains. HPI Narrative RADHA SHAFER, is a 65 F with a past medical history of essential hypertension; on metoprolol and nifedipine, hyperlipidemia; on lovastatin, history of thyroid cancer; s/p thyroidectomy on levothyroxine, obesity (class II); with BMI of 37.3 this admission, obstructive sleep apnea, history of tobacco abuse with chronic bronchitis; ~1 pack/day times ~20 years (quit 2012), CAD, PAD, CKD; stage IV with baseline creatinine of ~1.8 mg/dL, NANCIE; on ferrous sulfate, history of polyclonal gammopathy, history of carnitine palmitoyl transferase II deficiency; followed by professor of architecture at [employer] on levocarnitine, polyneuropathy; history of cervical radiculopathy, history of NSVT; followed by Dr. Shine of [facility], history of syncope, depression; on duloxetine,chronic diarrhea, GERD; on omeprazole, history of hysterectomy, history of rotator cuff repair, history of cataract; s/p extraction and osteoarthritis; with history of low back pain and total knee replacement who presents to [facility] ER complaining of flare of CPT-2 with muscle aches and pains. Ms. Shafer reports her symptoms began a few hours prior to admission with the sudden-onset of generalized muscle aches and pain that are mild but herald aflare of CPT-2 so she was instructed by her professor of architecture to come in and be treatedwith D10 1/2 NS at 1.5 x maintenance to manage her underlying genetic disorder affecting her metabolism of fat which may result in dysrhythmia, rhabdomyolysis and hypoglycemia. Additional resources revealed that NSAIDs and benzodiazepinesshould also be avoided in an effort to minimize risk of complications. She admits to myalgias and generalized weakness. She denies associated fever, chills, nausea, vomiting, constipation, abdominal pain, chest pain, palpitations, heart racing, SOB, dysuria, hematuria or rash. In the ER she was diagnosed with CPT-2 flare that was treated with the recommended D10 1/2 NS complicated by a hemolyzed blood panel that spuriously revealed Hyperkalemia of 5.9 mmol/L with repeat study pending at this time. [facility] that [facility] expected [facility] extend beyond 2 midnights. [facility] Medical History Arthrosis of right acromioclavicular joint [...] ?Medication ?Instructions ?Recorded ?Last Taken ?Type Disability [place] #1 ea 02/07/23 Unknown Rx aspirin 81 mg tablet,delayed 81 mg PO DAILY heart heal th 04/18/23 07/17/25 History release (Adult Low Dose Aspirin) cholecalciferol (vitamin D3) 50 50 mcg PO DAILY vitami n 04/18/23 07/17/25 History mcg (2,000 unit) capsule ferrous sulfate 325 mg (65 mg 325 mg PO DAILY suppleme nt 04/18/23 07/17/25 History iron) tablet levocarnitine 330 mg tablet 330 mg PO TID vitamin 04/0607/17/25 History compr.stocking,thigh,short,lrg #24 ea 02/29/24 Unknown Rx vitamin E (dl, acetate) 45 mg (100 45 mg PO QDAY suppl ement 01/06/25 07/17/25 History unit) capsule metoprolol tartrate 100 mg tablet 100 mg PO BID blood pressure #180 02/18/25 07/17/25 Rx tabs albuterol sulfate 90 mcg/actuation 2 puff inhalation Q 6H PRN copd 04/04/25 Unknown History aerosol inhaler fluticasone fur. 200 mcg-umeclid 1 inh inhalation JOSE Y breathing 04/04/25 07/17/25 Rx 62.5 mcg-vilant 25 mcg #3 ea inhalat.powder (Trelegy Ellipta) doxepin 100 mg capsule 100 mg PO QHS sleep #30 caps 04/08/25 07/16/25 Rx tizanidine 4 mg tablet See Rx Instructions .Route 0 04/08/25 07/16/25 Rx .COMPLEX spasms #150 tabs lisinopril 20 mg tablet 10 mg PO QDAY hypertension 0 04/16/25 07/17/25 History duloxetine 60 mg capsule,delayed 60 mg PO DAILY mental health #90 04/17/25 07/17/25 Rx release caps nifedipine 30 mg tablet,extended 30 mg PO DAILY blood pressure #90 04/17/25 07/17/25 Rx release tabs omeprazole 40 mg capsule,delayed 40 mg PO DAILY for ac id reflux #90 04/17/25 07/17/25 Rx release caps levothyroxine 175 mcg tablet 175 mcg PO DAILY thyroid #90 tabs 05/16/25 07/16/25 Rx albuterol sulfate 2.5 mg/3 mL 2.5 mg inhalation Q6 PRN wheezing 06/17/25 07/17/25 History (0.083 %) solution for nebulization lovastatin 10 mg tablet 10 mg PO QPM cholesterol #90 tabs 07/17/25 07/16/25 Rx Allergy/AdvReac Type Severity Reaction Status Date [...] feel safe at home: Yes ROS ROS Narrative Review of Systems: Constitutional: Patient denies fever or chills. Eyes: Patient denies changes in vision or discharge from eyes. ENT: Patient denies runny nose, sore throat or ear pain. Resp: Patient denies SOB or cough. CV: Patient denies chest pain, palpitations, heart racing or LE edema. GI: Patient denies abdominal pain, nausea, vomiting or constipation. : Patient denies dysuria or hematuria. MSK: Patient admits to myalgias and generalized weakness as per HPI. Skin: Patient denies rash, abscess or wounds. Psych: Patient denies symptoms of uncontrolled depression or anxiety. Neuro: Patient denies headache, paresthesias or focal neurologic weakness. Allergy: Patient denies lip swelling, tongue swelling or urticaria. Hematology: Patient denies easy bleeding or easy bruisability. Endocrinology: Patient denies polyuria, polydipsia, polyphagia or heat/cold intolerance. 14 point ROS otherwise negative except for positives noted above. Vital Signs Vital Signs Vital Signs: 07/17/25 19:06 07/17/25 19:21 07/17/25 [...] Room Air Oxygen Flow Rate (L/min) 4 Weight Weight: 224 lb 6.889 oz Body Mass Index (BMI) 37.3 Physical Exam Const alert, oriented x3, no apparent distress and average body habitus Constitutional Narrative: Obese and nontoxic in appearance. General Appearance: cooperative HEENT normocephalic, head/scalp atraumatic, hearing grossly normal bilaterally and moist oral mucous membranes Eyes PERRL, EOMs intact bilaterally and conjunctivae normal Neck no lymphadenopathy, supple and no JVD Resp normal respiratory effort, no retractions, no use of accessory muscles and clearto auscultation bilaterally Cardio regular rate and regular rhythm GI normal to inspection, nondistended, normoactive bowel sounds, soft to palpation,non-tender and non-distended GI Narrative: Obese. Extremity normal to inspection, full ROM and no clubbing, cyanosis or edema Skin Skin Narrative: Patient has no evidence of rash, abscess, wounds or jaundice. Neuro oriented x3, CN's II-XII intact bilaterally, moves all extremities and no focal motor deficits Sensorium / Orientation: awake, alert, oriented to person, oriented to place andoriented to time Speech: speech normal Psych affect normal Results Medical Records Data Attestation: I reviewed the patient's medical records Lab / Micro Data Attestation: I reviewed the patient's lab results. 07/17/25 20:56 07/18/25 00:10 Labs: Laboratory Results - last 24 hr 07/17/25 20:56: WBC 7.7, RBC 4.12 L, Hgb 11.0 L, Hct 35.4 L, MCV 85.9, MCH 26.7 L, MCHC 31.1 L, RDW Std Deviation 41.0, RDW Coeff of Esvin 13.2, Plt Count 254, MPV 10.1, Immature Gran % (Auto) 0.300, Neut % (Auto) 72.5 H, Lymph % (Auto) 18.0 L, [place] % (Auto) 6.6, Eos % (Auto) 1.6, Baso % (Auto) 1.0, Absolute Neuts (auto) 5.6, Absolute Lymphs (auto) 1.39, Nucleated RBC % 0, Sodium 130 L, Potassium 5.9 H, Chloride 94 L, Carbon Dioxide 26.8, Anion Gap 9, BUN 21 H, Creatinine 1.73 H, Estim Creat Clear Calc 37.32 L, Est GFR (MDRD) Non-Af 32 L, BUN/Creatinine Ratio 11.9, Glucose 88, Lactic Acid < 1.0, Calcium 8.7, Total Bilirubin 0.20, AST 35 H, ALT 16, Alkaline Phosphatase 89, Total Creatine [id number] H, Total Protein 7.1, Albumin 3.9, Globulin 3.2, Albumin/Globulin Ratio 1.2 Assessment & Plan Assessment/Plan (1) Carnitine palmitoyltransferase II deficiency: (2) Myalgia: (3) Generalized weakness: (4) Obesity (BMI 30-39.9): PLAN: Plan 1. CPT-2 flare with Myalgias and Generalized Weakness; followed by professor of architecture at [employer] on levocarnitine - Admit to PCU. Continue D10 1/2 NS as per professor of architecture'srecommendations. Give acetaminophen prn for pain or fever. PT/OT and Case Management to consult and treat in the AM on-rounds for further recommendations with help appreciated in advance. Recheck of BMP confirms normal potassium of 4.8 mmol/L. 2. Obesity (class II); with BMI of 37.3 this admission plus obstructive sleep apnea - Weight loss will be recommended. Check TSH. This complicates her case and may hamper recovery. Offer nocturnal CPAP. 3. Essential hypertension; on metoprolol and nifedipine - Continue home regimenplus give hydralazine IV prn for systolic blood pressure > 160 mmHg. 4. Hyperlipidemia; on lovastatin - Maintain low-dose statin for now. 5. History of thyroid cancer; s/p thyroidectomy on levothyroxine - Resume levothyroxine check TSH. 6. History of tobacco abuse with chronic bronchitis; ~1 pack/day times ~20 years (quit 2012) - Stable with no evidence of flare at this time. Continue prnnebulizers. 7. CAD - Stable. 8. PAD - Stable. 9. CKD; stage IV with baseline creatinine of ~1.8 mg/dL - Stable with serum creatinine of 1.7 mg/dL and eGFR of 33 mL/min. 10. NANCIE; on ferrous sulfate - Stable with hemoglobin of 11 g/dL and MCV of 85.9fL present on admission. 11. History of polyclonal gammopathy - Noted. 12. Polyneuropathy - Stable. 13. History of cervical radiculopathy - Noted. 14. History of NSVT; followed by Dr. Shine of [facility] - Noted. 15. History of syncope - Noted. 16. Depression; on duloxetine - Continue current treatment. 17. Chronic diarrhea - Stable with no new active issues at this time. 18. GERD; on omeprazole - Maintain PPI. 19. History of hysterectomy - Noted for the sake of completeness. 20. History of rotator cuff repair - Noted. 21. History of cataract; s/p extraction - Stable. 22. Osteoarthritis; with history of low back pain and total knee replacement - Give acetaminophen prn for pain or fever. 23. DVT prophylaxis - Heparin 5,000U sq BID plus SCD's. Total time: Approximately (but not less than) 55 minutes. Charges/Coding Visit Charges Inpatient E&M: 36198 Init Hosp L2 07/18/25 0622 <Electronically signed by Elana Deshpande DO> Cosigner Signature (if applicable): CC: Dr. Jennifer Gordon MD; Dr. Elana Deshpande DO~ Signed [facility] Work Phone: 1(754) 146-377109-12-2025 History and physical note [facility] Medical Records Department [address] [facility] [place] [address] H&P Exam - Hospitalist 07/17/252234 MR#: [id number] Acct: [id number] Name: RADHA SHAFER ANIL Rep #:[id number] : 1960 65 From: Elana Adames DO PCP: Dr. Jennifer Gordon MD Status:ADM IN Location: [facility] [id number] HPI - General General Date of Admission: 07/17/25 Date of Service: 07/17/25 Chief Complaint: Flare of CPT-2 with Muscle Aches and Pains. 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 Shine of [facility], history of syncope, depression; on duloxetine,chronic diarrhea, GERD; on omeprazole, history of hysterectomy, history of rotator cuff repair, history of cataract; s/p extraction and osteoarthritis; with history of low back pain and total knee replacement who presents to [facility] ER complaining of flare of CPT-2 with muscle aches and pains. Ms. Shafer reports her symptoms began a few hours prior to admission with the sudden-onset of generalized muscle aches and pain that are mild but herald aflare of CPT-2 so she was instructed by her professor of architecture to come in and be treatedwith D10 1/2 NS at 1.5 x maintenance to manage her underlyinggenetic disorder affecting her metabolism of fat which may result in dysrhythmia, rhabdomyolysis and hypoglycemia. Additional resources revealed that NSAIDs and benzodiazepinesshould also be avoided in an effort to minimize risk of complications. She admits to myalgias and generalized weakness. Shedenies associated fever, chills, nausea, vomiting, constipation, abdominal pain, chest pain, palpitations, heart racing, SOB, dysuria, hematuria or rash. In the ER she was diagnosed with CPT-2 flare that was treated with the recommended D10 1/2 NS complicated by a hemolyzed blood panel that spuriously revealed Hyperkalemia of 5.9 mmol/L with repeat study pending at this time. She was then admitted to [facility] ongoing care for a stay that is expected to extend beyond 2 midnights. [facility] Medical History Arthrosis of right acromioclavicular joint [...] mg PO DAILY heart heal th 04/18/23 07/17/25 History release (Adult Low Dose Aspirin) cholecalciferol (vitamin D3) 50 50 mcg PO DAILY vitami n 04/18/23 07/17/25 History mcg (2,000 unit) capsule ferrous sulfate 325 mg (65 mg 325 mg PO DAILY suppleme nt 04/18/23 07/17/25 History iron) tablet levocarnitine 330 mg tablet 330 mg PO TID vitamin 04/0607/17/25 History compr.stocking,thigh,short,lrg #24 ea 02/29/24 Unknown Rx vitamin E (dl, acetate) 45 mg (100 45 mg PO QDAY suppl ement 01/06/25 07/17/25 History unit) capsule metoprolol tartrate 100 mg tablet 100 mg PO BID blood pressure #180 02/18/25 07/17/25 Rx tabs albuterol sulfate 90 mcg/actuation 2 puff inhalation Q 6H PRN copd 04/04/25 Unknown History aerosol inhaler fluticasone fur. 200 mcg-umeclid 1 inh inhalation JOSE Y breathing 04/04/25 07/17/25 Rx 62.5 mcg-vilant 25 mcg #3 ea inhalat.powder (Trelegy Ellipta) doxepin 100 mg capsule 100 mg PO QHS sleep #30 caps 04/08/25 07/16/25 Rx tizanidine 4 mg tablet See Rx Instructions .Route 0 04/08/25 07/16/25 Rx .COMPLEX spasms #150 tabs lisinopril 20 mg tablet 10 mg PO QDAY hypertension 0 04/16/25 07/17/25 History duloxetine 60 mg capsule,delayed 60 mg PO DAILY mental health #90 04/17/25 07/17/25 Rx release caps nifedipine 30 mg tablet,extended 30 mg PO DAILY blood pressure #90 04/17/25 07/17/25 Rx release tabs omeprazole 40 mg capsule,delayed 40 mg PO DAILY for ac id reflux #90 04/17/25 07/17/25 Rx release caps levothyroxine 175 mcg tablet 175 mcg PO DAILY thyroid #90 tabs 05/16/25 07/16/25 Rx albuterol sulfate 2.5 mg/3 mL 2.5 mg inhalation Q6 PRN wheezing 06/17/25 07/17/25 History (0.083 %) solution for nebulization lovastatin 10 mg tablet 10 mg PO QPM cholesterol #90 tabs 07/17/25 07/16/25 Rx Allergy/AdvReac Type Severity Reaction Status Date [...] feel safe at home: Yes ROS ROS Narrative Review of Systems: Constitutional: Patient denies fever or chills. Eyes: Patient denies changes in vision or discharge from eyes. ENT: Patient denies runny nose, sore throat or ear pain. Resp: Patient denies SOB or cough. CV: Patient denies chest pain, palpitations, heart racing or LE edema. GI: Patient denies abdominal pain, nausea, vomiting or constipation. : Patient denies dysuria or hematuria. MSK: Patient admits to myalgias and generalized weakness as per HPI. Skin: Patient denies rash, abscess or wounds. Psych: Patient denies symptoms of uncontrolled depression or anxiety. Neuro: Patient denies headache, paresthesias or focal neurologic weakness. Allergy: Patient denies lip swelling, tongue swelling or urticaria. Hematology: Patient denies easy bleeding or easy bruisability. Endocrinology: Patient denies polyuria, polydipsia, polyphagia or heat/cold intolerance. 14 point ROS otherwise negative except for positives noted above. Vital Signs Vital Signs Vital Signs: 07/17/25 19:06 07/17/25 19:21 07/17/25 [...] Room Air Oxygen Flow Rate (L/min) 4 Weight Weight: 224 lb 6.889 oz Body Mass Index (BMI) 37.3 Physical Exam Const alert, oriented x3, no apparent distress and average body habitus Constitutional Narrative: Obese and nontoxic in appearance. General Appearance: cooperative HEENT normocephalic, head/scalp atraumatic, hearing grossly normal bilaterally and moist oral mucous membranes Eyes PERRL, EOMs intact bilaterally and conjunctivae normal Neck no lymphadenopathy, supple and no JVD Resp normal respiratory effort, no retractions, no use of accessory muscles and clearto auscultation bilaterally Cardio regular rate and regular rhythm GI normal to inspection, nondistended, normoactive bowel sounds, soft to palpation,non-tender and non-distended GI Narrative: Obese. Extremity normal to inspection, full ROM and no clubbing, cyanosis or edema Skin Skin Narrative: Patient has no evidence of rash, abscess, wounds or jaundice. Neuro oriented x3, CN's II-XII intact bilaterally, moves all extremities and no focal motor deficits Sensorium / Orientation: awake, alert, oriented to person, oriented to place andoriented to time Speech: speech normal Psych affect normal Results Medical Records Data Attestation: I reviewed the patient's medical records Lab / Micro Data Attestation: I reviewed the patient's lab results. 07/17/25 20:56 07/18/25 00:10 Labs: Laboratory Results - last 24 hr 07/17/25 20:56: WBC 7.7, RBC 4.12 L, Hgb 11.0 L, Hct 35.4 L, MCV 85.9, MCH 26.7 L, MCHC 31.1 L, RDWStd Deviation 41.0, RDW Coeff of Esvin 13.2, Plt Count 254, MPV 10.1, Immature Gran % (Auto) 0.300, Neut % (Auto) 72.5 H, Lymph % (Auto) 18.0 L, Bossier % (Auto) 6.6, Eos % (Auto) 1.6, Baso % (Auto) 1.0, Absolute Neuts (auto) 5.6, Absolute Lymphs (auto) 1.39, Nucleated RBC % 0, Sodium 130 L, Potassium 5.9 H, Chloride 94 L, Carbon Dioxide 26.8, Anion Gap 9, BUN 21 H, Creatinine 1.73 H, Estim Creat Clear Calc 37.32 L, Est GFR (MDRD) Non-Af 32 L, BUN/Creatinine Ratio 11.9, Glucose 88, Lactic Acid < 1.0, Calcium 8.7, Total Bilirubin 0.20, AST 35 H, ALT 16, Alkaline Phosphatase 89, Total Creatine Xknyiv113 H, Total Protein 7.1, Albumin 3.9, Globulin 3.2, Albumin/Globulin Ratio 1.2 Assessment & Plan Assessment/Plan (1) Carnitine palmitoyltransferase II deficiency: (2) Myalgia: (3) Generalized weakness: (4) Obesity (BMI 30-39.9): PLAN: Plan 1. CPT-2 flare with Myalgias and Generalized Weakness; followed by professor of architecture at [employer] on levocarnitine - Admit to PCU. Continue D10 1/2 NS as per professor of architecture'srecommendations. Give acetaminophen prn for pain or fever. PT/OT and Case Management to consult and treat in the AM on-rounds for further recom mendations with help appreciated in advance. Recheck of BMP confirms normal potassium of 4.8 mmol/L. 2. Obesity (class II); with BMI of 37.3 this admission plus obstructive sleep apnea - Weight loss will be recommended. Check TSH. This complicates her case and may hamper recovery. Offer nocturnal CPAP. 3. Essential hypertension; on metoprolol and nifedipine - Continue home regimenplus give hydralazine IV prn for systolic blood pressure > 160 mmHg. 4. Hyperlipidemia; on lovastatin - Maintain low-dose statin for now. 5. History of thyroid cancer; s/p thyroidectomy on levothyroxine - Resume levothyroxine check TSH. 6. History of tobacco abuse with chronic bronchitis; ~1 pack/day times ~20 years (quit 2012) - Stable with no evidence of flare at this time. Continue prnnebulizers. 7. CAD - Stable. 8. PAD - Stable. 9. CKD; stage IV with baseline creatinine of ~1.8 mg/dL - Stable with serum creatinine of 1.7 mg/dLand eGFR of 33 mL/min. 10. NANCIE; on ferrous sulfate - Stable with hemoglobin of 11 g/dL and MCV of 85.9fL present on admission. 11. History of polyclonal gammopathy - Noted. 12. Polyneuropathy - Stable. 13. History of cervical radiculopathy - Noted. 14. History of NSVT; followed by Dr. Shine of [facility] - Noted. 15. History of syncope - Noted. 16. Depression; on duloxetine - Continue current treatment. 17. Chronic diarrhea - Stable with no new active issues at this time. 18. GERD; on omeprazole - Maintain PPI. 19. History of hysterectomy - Noted for the sake of completeness. 20. History of rotator cuff repair - Noted. 21. History of cataract; s/p extraction - Stable. 22. Osteoarthritis; with history of low back pain and total knee replacement - Give acetaminophen prn for pain or fever. 23. DVT prophylaxis - Heparin 5,000U sq BID plus SCD's. Total time: Approximately (but not less than) 55 minutes. Charges/Coding Visit Charges Inpatient E&M: 51204 Init Hosp L2 07/18/25 0622 Cosigner Signature (if applicable): CC: Dr. Jennifer Gordon MD; Dr. Elana Deshpande, DO~ Signed [facility]09-12-2025 Discharge summary Author Ramakrishna Maher [facility] Note Date/Time July 17, 2025 10:37pm [facility] Medical Records Department [address] [place] [address] Emergency Department Summary 07/17/25 MR#: [id number] Acct: [id number] Name: RADHA SHAFER ANIL Rep #:[id number] : 1960 65 From: Ramakrishna Maher MD PCP: Dr. Jennifer Gordon MD Status:REG [...] 65-year-old woman. She is seen by a professor of architecture at [employer]. She was diagnosed with CPT II. This is a genetic disorder affecting her met embolism offat and may result in dysrhythmia, rhabdomyolysis, hypoglycemia. Patient had a letter from her professor of architecture that instructed whoever cared for her to order specific tests and to treat with D10 half-normal at 1.5 times maintenance Prior similar symptoms: Yes Recent Illness/[facility]ospital[facility] Medical History Arthrosis of right acromioclavicular joint [...] were ordered. IV fluids were started D10 half- normal saline. According to the document she is [...] 72.5 H Lymph % (Auto) 18.0 L Bossier % (Auto) 6.6 Eos % (Auto) 1.6 [...] (Rate is 62. The EKG is normal. MI intervalis 166 ms. QRS duration 100 ms. QT duration 4 and 20 ms. Tollhouse is normal.) Management Discussion w/another healthcare provider: Hospitalist (Spoke with Dr. Bynum. Patient was admitted to the PCU he was informed of her disorder and treatment and recommendations by her professor of architecture.) Treatment and Re-Evaluation :: It is an [...] deficiency, Elevated CPK, Secondary rhabdomyolysis Disposition Disposition: Acute Care Hospital [facility] What to do if you have Problems For any increased pain, shortness of breath, bleeding, nausea or vomiting, chestpain, or any unexpected problems, contact your Primary Care Provider. Call [facility] ([phone]) or report to the closest Emergency Room. Call 911 if necessary. 07/17/252236 <Electronically signed by Ramakrishna Maher MD> Cosigner Signature (if applicable): CC: Dr. Jennifer Gordon MD ~ Signed [facility] Work Phone: 1(644) 311-211709-11-2025 Discharge summary [facility] Medical Records Department [address] [place] [address] Emergency Department Summary 07/17/25 MR#: [id number] Acct: [id number] Name: RADHA SHAFER Rep #:[id number] : 1960 65 From: Ramakrishna Maher MD PCP: Dr. Jennifer Gordon MD Status:REG [...] 65-year-old woman. She is seen by a professor of architecture at [employer]. She was diagnosed with CPT II. This is a genetic disorder affecting her met embolism offat and may result in dysrhythmia, rhabdomyolysis, hypoglycemia. Patient had a letter from her professor of architecture that instructed whoever cared for her to [...] normoactive bowel sounds, non-distended and no masses; Negativefor non-tender or hepatosplenomegaly Palpation: tender other (Minimal [...] lab results. Patient has mild hyperkalemia Which isprobably due to the fact that it is [...] 72.5 H Lymph % (Auto) 18.0 L Bossier % (Auto) 6.6 Eos % (Auto) 1.6 [...] (Rate is 62. The EKG is normal. MI intervalis 166 ms. QRS duration 100ms. QT duration 4 and 20 ms. Tollhouse is normal.) Management Discussion w/another healthcare provider: Hospitalist (Spoke with Dr. Bynum. Patient was admitted to the PCU he was informed of her disorder and treatment and recommendations by her professor of architecture.) Treatment and Re-Evaluation :: It is an enzyme that plays a crucial role in metabolism fatty acids which is essential for energy production. The myopathic form which the patient has is characterized by myalgias and occasional weakness. Development of rhabdomyolysis. This may lead to kidney failure. This could be triggered by fast ing, intense exercise, stress. 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 Call [facility] ([phone]) or report tothe closest Emergency Room. Call 911 if necessary. 07/17/252236 Cosigner Signature (if applicable): CC: Dr. Jennifer Gordon MD ~ Signed [facility]08-12-2025 Telephone encounter Note* Telephone Encounter - Nikolai Gray - 06/17/2025 2:50 PM EDT Left message for patient to schedule a follow up appy [facility]08-12-2025 Miscellaneous Notes* Telephone Encounter - Nikolai Gray - 06/17/2025 2:50 PM EDT Left message for patient to schedule a follow up appy [facility] Telephone encounter Note* Telephone Encounter - Meliza Rust - 06/11/2025 2:35 PM EDT Patient called and was stuck in traffic . Wouldn't make it until after 4 she stayed that she will call in about a week. [facility]08-06-2025 Miscellaneous Notes* Telephone Encounter - Meliza Rust - 06/11/2025 2:35 PM EDT Patient called and was stuck in traffic . Wouldn't make it until after 4 she stayed that she will call in about a week. [facility] Radiology Diagnostic study note [facility] Imaging Services [address] [place], [place] [address] Thyroid MR#: [id number] Acct: [id number] Name: RADHA SHAFER ANIL Rep #: [id number] : 1960 F 65 From: Shavonne Guevara MD PCP: Dr. Jennifer Gordon MD Status: REG CLI Study:Thyroid Date of Exam: 05/07/25 Exam# [id number] Ordering Dr: Jennifer Gordon MD PROCEDURE: THYROID, [...] abnormality of the thyroidectomy bed. Reading Location: [id number] CC: Dr. Jennifer Gordon MD ~ Diver Tender: Signed [facility]06-27-2025 Telephone encounter Note* Telephone Encounter - Celinalidia Meaghan - 05/02/2025 10:02 AM EDT [facility] called to see if there was an update on the patient taking or not taking the Dojolvi and if there are any side effects she may be experiencing. Please give them a call at [phone] and ask for a Pharmacist on the Dojolvi team. Thank you, Meaghan [facility]06-27-2025 Miscellaneous Notes* Telephone Encounter - Meaghan Valero - 05/02/2025 10:02 AM EDT [facility] called to see if there was an update on the patient taking or not taking the Dojolvi and if there are any side effects she may be experiencing. Please give them a call at [phone] and ask for a Pharmacist on the Dojolvi team. Thank you, Meaghan [facility]25 NoteHeart & Vascular Clinic Note [facility] Visit Date: [...] #HTN #HLD #FELISA #ECHO; 04/2024. Done in [place]. LVEF-60% #CARDIAC MRI Normal biventricular size and [...] Angiogram; Surgeon: Tor Long MD; Location: [facility]; Service: Cardiovascular CARDIOVASCULAR STRESS TEST CHOLECYSTECTOMY COLONOSCOPY with biopsies COLONOSCOPY N/A 02/17/2022 Procedure: COLONOSCOPY; Surgeon: Jada Vargas MD; [place] [facility] [place]; Service: Colorectal EGD N/A 08/15/2022 Procedure: ESOPHAGOGASTRODUODENOSCOPY WITH BIOPSY; Surgeon: Tyshawn Santos MD; Location: Endo; Service: Gastroenterology GALLBLADDER HC LEFT HEART CATH N/A 09/26/2022 Procedure: Left Heart Cath; Surgeon: Tor Long MD; Location: [facility]; Service: Cardiovascular HYSTERECTOMY JOINT REPLACEMENT Left knee ORTHOPEDIC SURGERY r wrist surgery, left ankle, right rotator cuff ROTATOR CUFF REPAIR Right SIGMOIDOSCOPY FLEXIBLE N/A 06/23/2022 Procedure: SIGMOIDOSCOPY FLEXIBLE WITH BIOPSY; Surgeon: Tyshawn Santos MD; Location: Endo; Service: Gastroenterology THYROIDECTOMY N/A 07/15/2015 Procedure: TOTAL THYROIDECTOMY; Surgeon: Lopez Alonso MD; Location: [facility]; Service: US ECHO TRANSTHORACIC FOLLOWUP [...] Take 1 (one) table (more content not included)...[facility] [id number] History of Present illness Narrative* Cb Boudreaux MD - 04/30/2025 10:29 AM EDT Heart & Vascular Clinic Note [facility] Visit Date: [...] #HTN #HLD #FELISA #ECHO; 04/2024. Done in [place]. LVEF-60% #CARDIAC MRI Normal biventricular size and [...] Angiogram; Surgeon: Tor Long MD; Location: [facility]; Service: Cardiovascular CARDIOVASCULAR STRESS TEST CHOLECYSTECTOMY COLONOSCOPY with biopsies COLONOSCOPY N/A 02/17/2022 Procedure: COLONOSCOPY; Surgeon: Jada Vargas MD; [place] [facility] [place]; Service: Colorectal EGD N/A 08/15/2022 Procedure: ESOPHAGOGASTRODUODENOSCOPY WITH BIOPSY; Surgeon: Tyshawn Santos MD; Location: [facility]; Service: Gastroenterology GALLBLADDER HC LEFT HEART CATH N/A 09/26/2022 Procedure: Left Heart Cath; Surgeon: Tor Long MD; Location: [facility]; Service: Cardiovascular HYSTERECTOMY JOINT REPLACEMENT Left knee ORTHOPEDIC SURGERY r wrist surgery, left ankle, right rotator cuff ROTATOR CUFF REPAIR Right SIGMOIDOSCOPY FLEXIBLE N/A 06/23/2022 Procedure: SIGMOIDOSCOPY FLEXIBLE WITH BIOPSY; Surgeon: Tyshawn Santos MD; Location: [facility]; Service: Gastroenterology THYROIDECTOMY N/A 07/15/2015 Procedure: TOTAL THYROIDECTOMY; Surgeon: Lopez Alonso MD; Location: [facility]; Service: US ECHO TRANSTHORACIC FOLLOWUP [...] total) by mouth daily with breakfast . 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 Overall Financial Resource Strain (CARDIA) Difficulty of [...] the reaction. Vancomycin Rash documented in this [id number] Radiology Diagnostic study note [facility] Imaging Services [address] [place] [address] Lung Screening MR#: [id number] Acct: [id number] Name: RADHA SHAFER Rep #: [id number] : 1960 F 65 From: Chris Tamez MD PCP: Dr. Jennifer Gordon MD Status: REG CLI Study:Low Dose CT Lung Screening Date of Exam : 04/17/25 Exam# [id number] Ordering Dr: John Heredia NP FACTORY REPRESENTATIVE-C PROCEDURE: LOW DOSE CT LUNG SCREENING 04/17/2025 REASON FOR EXAM: FORMER SMOKER TECHNIQUE: Low Dose CT Lung screening without contrast. Coronal and Sagittal reconstructionseries were provided. One or more dose reduction techniques were used (e.g., Automated exposure control, adjustment of the mA and/or kV according to patient size, use of iterative reconstruction technique). REFERENCE LINK: [facility] Lung-RADS RADIATION DOSE SUMMARY: CTDlvol: 16.28 mGy [...] LDCT. Other Significant Findings: None. Reading Location: [id number] CC: FACTORY REPRESENTATIVE-John Heredia; Dr. Jennifer Gordon MD ~ Diver Tender: Signed [facility]06-11-2025 Instructions* Patient Instructions* Yareli Woodruff MA - 2025 4:26 PM EDT It was our pleasure to see you in [facility] today. Please contact: JASON Candelario [phone] FERMIN Downs RMA with questions, concerns, or if you need prescription refills before your next appointment. documented in this [id number] Evaluation note* Diagnosis Onset Date Resolution Status Admit Date Prediabetes acute April 16 1:12pm FELISA (obstructive sleep apnea) chroni c 2025 1:12pm Carnitine palmitoyltransfera se II deficiency inactive 2025 1:12pm Stage 3b chronic kidney dise ase (CKD) noneactive 2025 1:12pm Moderate major depression noneactive 2025 1:12pm Mixed hyperlipidemia noneactive 2025 1:12pm Foamy urine noneactive April 16 1:12pm Chronic abdominal pain noneactive [facility] 2024 1:12pm Post-operative hypothyroidism noneac tive 2025 1:12pm Ventricular tachycardia noneactive [facility] 2024 1:12pm Essential hypertension noneactive [facility] 2024 1:12pm COPD (chronic obstructive pulmonary disease) noneactive April 16 1:12pm Obesity (BMI 30-39.9) noneactive [facility] 2024 1:12pm Smoking greater than 20 pack years acute June 17 2:44pm Stage 3 severe COPD by GOLD classification acute June 17 2:44pm Hypoxemia chronic June 17 025 2:44pm FELISA (obstructive sleep apnea) chroni c June 17, 2025 2:44pm Anemia acute June 26 025 1:54pm Obesity (BMI 30-39.9) acute Sep tember 2024 11:28pm Elevated CPK resolved July 172024 11:28pm Myalgia resolved July 11:28pm Secondary rhabdomyolysis resolved July 17, 2025 11:28pm Carnitine palmitoyltransfera se II deficiency inactive July 17, 2025 11:28pm Generalized weakness inactive Jul 11:28pm [facility] Work Phone: 1(390) 105-888205-22-2025 Evaluation note* Diagnosis Onset Date Resolution Status Admit Date Low back pain acute March 27, 2 [...] 16 1:12pm Chronic abdominal pain noneactive Ju sd 2024 1:12pm Post-operative hypothyroidism noneac tive 2025 1:12pm Ventricular tachycardia noneactive [facility] 2024 1:12pm Essential hypertension noneactive [facility] 2024 1:12pm COPD (chronic obstructive pulmonary disease) noneactive April 16 1:12pm Obesity (BMI 30-39.9) noneactive Michael e 2024 1:12pm Smoking greater than 20 pack years acute June 17 2:44pm Stage 3 severe COPD by GOLD classification acute June 17 2:44pm Hypoxemia chronic June 17 2:44pm FELISA (obstructive sleep apnea) chroni c June 17, 2025 2:44pm Anemia acute June 26 1:54pm [facility] Work Phone: 1(879) 537-805505-22-2025 Evaluation note* Diagnosis Onset Date Resolution Status [...] tive 2025 1:12pm Ventricular tachycardia noneactive [facility] 2024 1:12pm Essential hypertension noneactive 2024 1:12pm [...] June 17, 2025 2:44pm Anemia acute June 26, 025 1:54pm Carnitine palmitoyltransfera se II deficiency acute July 17, 2025 10:51pm Elevated CPK acute July 172024 10:51pm Generalized weakness acute Jul 10:51pm Myalgia acute July 10:51pm Obesity (BMI 30-39.9) acute Jul 10:51pm Secondary rhabdomyolysis acute July 17, 2025 10:51pm [facility] Work Phone: 1(189) 363-716505-22-2025 Evaluation note* Diagnosis Onset Date Resolution Status [...] se II deficiency acute July 17, 2025 11:28pm Elevated CPK acute July 172024 11:28pm Generalized weakness acute Jul 11:28pm Myalgia acute July 11:28pm Obesity (BMI 30-39.9) acute Jul 11:28pm Secondary rhabdomyolysis acute July 17, 2025 11:28pm [facility] Work Phone: 1(193) 750-162904-30-2025 Telephone encounter Note* Telephone Encounter - Shaina Boykin MD - 03/05/2025 1:47 PM EDT Received a call from Radha this afternoon. She has CPT2. She was admitted last week to [facility] due to gastroenteritis and subsequently elevated [...] She plans to get labs drawn at [facility]. I asked her to give us a call if her symptoms to not improve or if she has other questions/concerns. Plan discussed with fire battalion chief attending, Dr. Moon, and her primary metabolic provider, Dr. Hyman. Shaina Boykin MD PGY-4 Division of Genetic & Genomic Medicine [facility] Work Phone: [phone] Miscellaneous Notes* Telephone Encounter - Shaina Boykin MD - 03/05/2025 1:47 PM EDT Received a call from Radha this afternoon. She has CPT2. She was admitted last week to [facility] due to gastroenteritis and subsequently elevated [...] She plans to get labs drawn at [facility]. I asked her to give us a call if her symptoms to not improve or if she has other questions/concerns. Plan discussed with fire battalion chief attending, Dr. Moon, and her primary metabolic provider, Dr. Hyman. Shaina Boykin MD PGY-4 Division of Genetic & Genomic Medicine [facility] Evaluation note* Diagnosis Onset Date Resolution [...] April 16 1:12pm Chronic abdominal pain noneactive [facility] 2024 1:12pm Post-operative hypothyroidism noneac tive 2025 1:12pm Ventricular tachycardia noneactive [facility] 2024 1:12pm Essential hypertension noneactive [facility] 2024 1:12pm COPD (chronic obstructive pulmonary disease) noneactive April 16 1:12pm Obesity (BMI 30-39.9) noneactive Michael e 2024 1:12pm Smoking greater than 20 pack years acute June 17 2:44pm Stage 3 severe COPD by GOLD classification acute June 17 2:44pm Hypoxemia chronic June 17, 025 2:44pm FELISA (obstructive sleep apnea) chroni c June 17, 2025 2:44pm [facility] Work Phone: 1(190) 675-150204-15-2025 History of Present illness Narrative* Adelina Mejia [...] further needs. Assessment and Background Information: * Emmett Rubio - 02/17/2025 11:23 PM EDT Spiritual Care Progress Note Completed by: Emmett Rubio Person(s) Present During this Visit: Patient Time Spent in Direct Patient Care: 5 Narrative: This cattle brander provided spiritual care and supportive presence for the patient. [facility] remains available for emotional and spiritual support as needed. Patients Response to Pastoral Care: Expressed Gratitude for Visit Planning for Future Visits: PRN Pastoral care will remain available for emotional and spiritual support as needed. Chaplains can bereached by dialing the on-call number found within the signature of this note. Or, requested by on-call day cattle brander via [employer]. Rev. Emmett Rubio [facility] Spiritual Care Department 02/17/25 8198 Visit Background Visit With Patient Visit By Staff [facility] Visit Progression Introduction;Follow-Up Visit Requested By [facility] Initiated Visit Source [facility] Initiated Visit Type Inpatient Visit Circumstances and Events Routine Visit Visit Length (minutes) 5 Patient's Response to Pastoral Care Expressed Gratitude for Visit Visit Planning PRN Spiritual Assessment Not assessed during visit Hindu Assessment Not assessed during this visit Family assessment provided? Unable to asess during this visit * Letitia Obrien MD - 02/17/2025 1:30 PM EDT [facility] PROGRESS NOTE Assessment and Plan Radha Shafer is a 64 y.o. female patient of , Physician with history of COPD on home oxygen, struct of sleep apnea, hypertension, chronic kidney disease, hypothyroidism, CPT deficiency presented to [facility] on 02/13/2025 with shortness of breath. [...] with dextrose 10%/normal saline genetic specialist at [facility] CK improving, discontinue fluids on February 16 [...] Russell MD - 02/16/2025 12:43 PM EDT [facility] PROGRESS NOTE Assessment and Plan Radha Shafer is a 64 y.o. female patient of , Physician with history of COPD on home oxygen, struct of sleep apnea, hypertension, chronic kidney disease, hypothyroidism, CPT deficiency presented to [facility] on 02/13/2025 with shortness of breath. [...] with dextrose 10%/normal saline genetic specialist at [facility] CK improving, discontinue fluids on February 16 [...] Russell MD - 02/15/2025 12:49 PM EDT [facility] PROGRESS NOTE Assessment and Plan Radha Shafer is a 64 y.o. female patient of , Physician with history of COPD on home oxygen, struct of sleep apnea, hypertension, chronic kidney disease, hypothyroidism, CPT deficiency presented to [facility] on 02/13/2025 with shortness of breath. 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 Muscle aches Rhabdomyolysis Elevated CK above 20,000 one presented IV hydration with dextrose 10%/normal saline genetic specialist at [facility] CK in the morning Monitor BMP/magnesium Continue [...] Russell MD - 02/14/2025 3:28 PM EDT [facility] PROGRESS NOTE Assessment and Plan Radha Shafer is a 64 y.o. female patient of , Physician with history of COPD on home oxygen, struct of sleep apnea, hypertension, chronic kidney disease, hypothyroidism, CPT deficiency presented to [facility] on 02/13/2025 with shortness of breath. [...] in Direct Patient Care: 15 Narrative: This cattle brander visited with pt Radha while rounding on the unit. [facility] introduced selfand the role of a cattle brander. Listened empathetically while Radha shared her experience, and that shewas having a difficult time staying hydrated. Radha shared no immediate emotional/spiritual needs, but thanked the cattle brander for the visit. Pastoral Care to remain available as needed. 02/14/25 1445 Visit Background Visit With Patient Visit By Student [facility] Visit Progression Introduction Visit Requested By [facility] Initiated Visit Source [facility] Initiated Visit Type Inpatient;Rounding Visit Circumstances and Events Routine Visit Visit Length (minutes) 15 Patient's Response to Pastoral Care Appeared to be well-engaged Visit Planning PRN Spiritual Assessment Not assessed during visit Hindu Assessment Not assessed during this visit Family assessment provided? Unable to asess during this visit Kavya Gentile MDiv [facility] Tax Accounting Manager [facility] On-Call [facility] Hotline: [phone] * Delmy Olmedo RN - 02/14/2025 2:26 PM EDT Patient complained of burning up her arm and to her shoulder, after this nurse hung doxycycline Axt. This nurse paused said axt, notified Dr. Sidra Espinoza at this time. documented in this [id number] NoteS DISCHARGE SUMMARY -- [facility] Radha Shafer Admitted: 02/13/2025 Discharge Date: 02/18/25 PCP Handoff Recommended Outpatient Testing Follow-up with PCP Results Pending At Discharge None Clinical Summary Radha Shafer is a 64 y.o. female patient of , Physician with history of COPD on home oxygen, struct of sleep apnea, hypertension, chronic kidney disease, hypothyroidism, CPT deficiency presented to [facility] on 02/13/2025 with shortness of breath. [...] with dextrose 10%/normal saline genetic specialist at [facility] CK improving 500 on discharge time, discontinue [...] tablet Commonly known as: (more content not included)...[facility]04-15-2025 Hospital course Narrative* Jossie Alcazar MD - 02/18/2025 11:52 AM EDT Images from the original note were not included. [facility] DISCHARGE SUMMARY -- [facility] Radha Shafer Admitted: 02/13/2025 Discharge Date: 02/18/25 PCP Handoff Recommended Outpatient Testing Follow-up with PCP Results Pending At Discharge None Clinical Summary Radha Shafer is a 64 y.o. female patient of , [facility] with history of COPD on home oxygen, struct of sleep apnea, hypertension, chronic kidney disease, hypothyroidism, CPT deficiency presented to [facility] on 02/13/2025 with shortness of breath. [...] with dextrose 10%/normal saline genetic specialist at [facility] CK improving 500 on discharge time, discontinue [...] Trelegy Ellipta 200-62.5-25 mcg Dsdv Generic drug: rilwaxibfla-uuaryjrvl-acefoemr Inhale 1 (one) Inhalation daily . Quantity: [...] on 02/18/25, 11:52 AM documented in this [id number] Plan of care note* Plan of Care [...] level of psychosocial functioning Outcome: Partially Met [id number] Miscellaneous Notes* Plan of Care - Delmy [...] left forearm. * Quick Note - Rae Hairston CNP - 02/14/2025 10:54 PM EDT Received a call from Dr. Anjana Campbell (Genetics Attending at [facility]). Concerned that Joelo might need different management d/t genetic deficiency. They recommend D10.9NS @ 150 ml/hr as this deficiency also needs increased calories. 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 The # to reach her is - main office of physician is [phone]. Dr Anjana Campbell (genetics). Tell whomever answers [...] without acute dynamic changes, no STEMI. NSR. MI interval 144 ms. QRS 90 ms. BPM: [...] ECG and sinus tachycardia Comments: Sinus tachycardia. MI interval 140 ms. QRS [address] and T wave abnormality. No STEMI. documented in this [id number] NoteS PROGRESS NOTE Assessment and Plan Radha Shafer is a 64 y.o. female patient of , Physician with history of COPD on home oxygen, struct of sleep apnea, hypertension, chronic kidney disease, hypothyroidism, CPT deficiency presented to [facility] on 02/13/2025 with shortness of breath. [...] with dextrose 10%/normal saline genetic specialist at [facility] CK improving, discontinue fluids on February 16 [...] normal mood and affect AUTHENTICATED BY LETITIA OBRIEN, ON 02/17/2025 13:31:[address] [place] [address] 02-17-2025 Consult note* Brigette Govea RN - [...] this admission insurance coverage is listed as [facility] DUAL [place]PLE[place] (HMO SNP) and MEDICAID[place] as a secondary insurance. Pt denies transportation, medication or food insecurity. Pt denies any concerns relating to obtaining medications or follow up medical care. DISCHARGE CARE RESOURCES: Pt has Hui Whitehead as PCP. The patient is not currently receiving home health services.. Pt's daughter as teachable critical care rn. Pt does not have services with [facility] on Aging such as [facility]/ [facility]. CM will continue to follow [...] routine activities due to chronic pain:: Yes [id number] Consult note* Brigette Govea RN - 02/17/2025 [...] this admission insurance coverage is listed as [facility]ICARE/[facility] DUAL COMPLETE (O SNP) and MEDICAID/[place] as a secondary insurance. Pt denies transportation, medication or food insecurity. Pt denies any concerns relating to obtaining medications or follow up medical care. DISCHARGE CARE RESOURCES: Pt has Hui Whitehead as PCP. The patient is not currently receiving home health services.. Pt's daughter as teachable critical care rn. Pt does not have services with [facility] on Aging such as [facility]/ [facility]. CM will continue to [...] to chronic pain:: Yes documented in this [id number] Plan of care note* Plan of Care [...] level of psychosocial functioning Outcome: Partially Met [id number] Plan of care note* Plan of Care - Rachael Huffman RN - 02/16/2025 1:36 PM EDT Problem: Actual or potential alteration in health Goal: Absence of healthcare acquired conditions Outcome: Partially Met Goal: Knowledge of Interdisciplinary Plan of Care Outcome: Partially Met Goal: Knowledge of Enviroment Outcome: Partially Met Problem: Pressure Injury, Risk of Goal: Absence of pressure injury Outcome: Partially Met [id number] NoteS PROGRESS NOTE Assessment and Plan Radha Shafer is a 64 y.o. female patient of , Physician with history of COPD on home oxygen, struct of sleep apnea, hypertension, chronic kidney disease, hypothyroidism, CPT deficiency presented to [facility] on 02/13/2025 with shortness of breath. [...] with dextrose 10%/normal saline genetic specialist at [facility] CK improving, discontinue fluids on February 16 [...] affect AUTHENTICATED BY OLGA RUSSELL, ON 02/16/2025 12:46:50[facility] 02-15-2025 NoteS PROGRESS NOTE Assessment and Plan Radha Shafer is a 64 y.o. female patient of , Physician with history of COPD on home oxygen, struct of sleep apnea, hypertension, chronic kidney disease, hypothyroidism, CPT deficiency presented to [facility] on 02/13/2025 with shortness of breath. 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 Muscle aches Rhabdomyolysis Elevated CK above 20,000 one presented IV hydration with dextrose 10%/normal saline genetic specialist at [facility] CK in the morning Monitor BMP/magnesium Continue [...] and affect AUTHENTICATED BY OLGA RUSSELL, ON 02/15/2025 12:52:[address] [place] [address] 02-15-2025 Plan of care note* Plan of Care - Rachael Huffman RN - 02/15/2025 11:58 AM EDT Problem: Actual or potential alteration in health Goal: Absence of healthcare acquired conditions Outcome: Partially Met Goal: Knowledge of Interdisciplinary Plan of Care Outcome: Partially Met Goal: Knowledge of Enviroment Outcome: Partially Met [id number] Progress note* Quick Note - Elisabteh Francis RN - 02/15/2025 5:35 AM EDT [...] 60. Additional iv inserted into left forearm. [id number] Progress note* Quick Note - Rae Hairston CNP - 02/14/2025 10:54 PM EDT Received a call from Dr. Anjana Campbell (Genetics Attending at [facility]). Concerned that Rhabdo might need different management d/t genetic deficiency. They recommend D10.9NS @ 150 ml/hr as this deficiency also needs increased calories. 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 The # to reach her is - main office of physician is [phone]. Dr Anjana Campbell (genetics). Tell whomever answers [...] L NS bolus Additional care provided: [facility] Work Phone: 1(681) 395-153804-11-2025 [facility] PROGRESS NOTE Assessment and Plan Radha Shafer is a 64 y.o. female patient of , Physician with history of COPD on home oxygen, struct of sleep apnea, hypertension, chronic kidney disease, hypothyroidism, CPT deficiency presented to [facility] on 02/13/2025 with shortness of breath. [...] affect AUTHENTICATED BY OLGA RUSSELL ON 02/14/2025 15:33:[address] [place] [address] 02-14-2025 Plan of care note* Plan of Care - Delmy Olmedo RN - 02/14/2025 3:27 PM EDT POC intiated Problem: Actual or potential alteration in health Goal: Absence of healthcare acquired conditions Outcome: Partially Met Goal: Knowledge of Interdisciplinary Plan of Care Outcome: Partially Met Goal: Knowledge of Enviroment Outcome: Partially Met [id number] Emergency department Note* Amelia Anderson RN - 02/14/2025 12:35 PM EDT Report called to [facility] for room 4714 [id number] Emergency department Note* Amelia Anderson RN - [...] via nasal cannula Current Needs Required 2 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 SEX: female : 1960 ENCOUNTER DATE: 02/13/25 CSN: [id number] PCP: Erin Physician History of Presenting Illness/Medical [...] was given 4 baby aspirin by EMS STEAMFITTER SUPERVISOR. No nitroglycerin. Patient states that she was [...] ear normal. Nose: Nose normal. Mouth/Throat: Lips: Hoyt. Mouth: Mucous membranes are moist. Eyes: General: [...] other components within normal limits Narrative: [facility] Services has implemented the [...] Procedure Abnormality Status --------- ------ CBC Auto Differential[[id number]] Abnormal Final result Please view results for these tests on the individual orders. OBTAIN VENOUS BLOOD GASES AND PERFORM CPK TSH BASIC METABOLIC PANEL MAGNESIUM LEVEL CBC AND DIFFERENTIAL Narrative: The following orders were created for panel order CBC and Differential. Procedure Abnormality Status --------- ------ CBC Auto Differential[[id number]] Please view results for these tests on [...] Coronary Angiogram; Surgeon: Tor Long MD; Location: [facility] SENIOR LEAD JAVA DEVELOPER; Service: Cardiovascular CARDIOVASCULAR STRESS TEST CHOLECYSTECTOMY COLONOSCOPY with biopsies COLONOSCOPY N/A 02/17/2022 Procedure: COLONOSCOPY; Surgeon: Jada Vargas MD; [place] [facility] [place]; Service: Colorectal EGD N/A 08/15/2022 Procedure: ESOPHAGOGASTRODUODENOSCOPY WITH BIOPSY; Surgeon: Tyshawn Santos MD; Location: Endo; Service: Gastroenterology GALLBLADDER HC LEFT HEART CATH N/A 09/26/2022 Procedure: Left Heart Cath; Surgeon: Tor Long MD; Location: [facility] HYBRID SENIOR LEAD JAVA DEVELOPER; Service: Cardiovascular HYSTERECTOMY JOINT REPLACEMENT Left knee ORTHOPEDIC SURGERY r wrist surgery, left ankle, right rotator cuff ROTATOR CUFF REPAIR Right SIGMOIDOSCOPY FLEXIBLE N/A 06/23/2022 Procedure: SIGMOIDOSCOPY FLEXIBLE WITH BIOPSY; Surgeon: Tyshawn Santos MD; Location: Endo; Service: Gastroenterology THYROIDECTOMY N/A 07/15/2015 Procedure: TOTAL THYROIDECTOMY; Surgeon: Lopez Alonso MD; Location: [facility]; Service: ECHO TRANSTHORACIC FOLLOWUP LIMITED WRIST SURGERY Right [...] total) by mouth daily with breakfast . jkkjuzpaiqr-hbkyoihjq-hltkyydj (Trelegy Ellipta) 200-62.5-25 mcg DsDv Inhale 1 [...] (premix) (3.375 g Intravenous New Bag 02/13/25 508) fentaNYL (SUBLIMAZE) inj syringe 25 mcg (has [...] 5' 5 Wt 98 kg (216 lb) EtF813% BMI 35.94 kg/m In brief, patient is a very pleasant 64-year-old female with a PMH as stated above, who presents tothe ED chief complaint of progressive worsening shortness [...] level and did provide 500 ccIVF, unfortunately labor law professor had called ED charge nurse to inform [...] Acid: 1.5 [ZW] 1716 Informed by ED independent freight agent that lab team had called to inform [...] No dense focal consolidation is seen. [ZW] 6480 Update: Elevated CPK at 28k, given the [...] . Astrid Sanders DO ED Attending Physician [facility] (Please note that portions of this note may have been completed with a voice recognition program. 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 Astrid Sanders DO 02/13/25 7347 * Astrid Connolly RN - 02/13/2025 3:40 PM EDT Pt reports sob and chest pain with hx of copd. Pt was given asa and duoneb treatment. Pt reports feeling much better after duoneb * Marina Prado RN - 02/13/2025 3:40 PM EDT Bed: 25 Expected date: Expected time: Means of arrival: Comments: Nick documented in this [id number] Emergency department Note* Fany De Leon - 02/14/2025 9:50 AM EDT Meal Tray delivered at this time. 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 [x] Patient updated on plan of care [x] All comfort needs addressed [x] Patient updated on duration of visit All questions answered, patient denies further needs. Call light within reach. [id number] Emergency department Note* Meaghan Butler RN - 02/14/2025 5:30 AM EDT Hourly rounding assessment completed on the patient. [x] Patient updated on plan of care [x] All comfort needs addressed [x] Patient updated on duration of visit All questions answered, patient denies further needs. Call light within reach. [id number] Emergency department Note* Meaghan Butler RN - 02/14/2025 4:28 AM EDT Hourly rounding assessment completed on the patient. [x] Patient updated on plan of care [x] All comfort needs addressed [x] Patient updated on duration of visit All questions answered, patient denies further needs. Call light within reach. [id number] Emergency department Note* Meaghan Butler RN - 02/14/2025 3:30 AM EDT Hourly rounding assessment completed on the patient. [x] Patient updated on plan of care [x] All comfort needs addressed [x] Patient updated on duration of visit All questions answered, patient denies further needs. Call light within reach. [id number] Emergency department Note* Meaghan Butler RN - 02/14/2025 2:44 AM EDT Hourly rounding assessment completed on the patient. [x] Patient updated on plan of care [x] All comfort needs addressed [x] Patient updated on duration of visit All questions answered, patient denies further needs. Call light within reach. [id number] Emergency department Note* Meaghan Butler RN - 02/14/2025 1:30 AM EDT Hourly rounding assessment completed on the patient. [x] Patient updated on plan of care [x] All comfort needs addressed [x] Patient updated on duration of visit All questions answered, patient denies further needs. Call light within reach. [id number] Emergency department Note* Meaghan Butler RN - 02/14/2025 12:03 AM EDT Hourly rounding assessment completed on the patient. [x] Patient updated on plan of care [x] All comfort needs addressed [x] Patient updated on duration of visit All questions answered, patient denies further needs. Call light within reach. [id number] Emergency department Note* Meaghan Butler RN - 02/13/2025 11:16 PM EDT Hourly rounding assessment completed on the patient. [x] Patient updated on plan of care [x] All comfort needs addressed [x] Patient updated on duration of visit All questions answered, patient denies further needs. Call light within reach. T [id number] History and physical note* Susan Thakur MD - 02/13/2025 8:20 PM EDT [facility] HISTORY AND PHYSICAL -- [facility] Patient Name: Radha Shafer : 1960 MR #: [id number] Admit Date: 02/13/2025 Physicians: No, Physician (Family); No ref. provider found (Referring) Radha Shafer is a 64 y.o. female patient of No, Physician with history of COPD on home oxygen, struct of sleep apnea, hypertension, chronic kidney disease, hypothyroidism, CPT deficiency presented to [facility] on 02/13/2025 with shortness of breath. [...] Angiogram; Surgeon: Tor Long MD; Location: [facility]; Service: Cardiovascular CARDIOVASCULAR STRESS TEST CHOLECYSTECTOMY COLONOSCOPY with biopsies COLONOSCOPY N/A 02/17/2022 Procedure: COLONOSCOPY; Surgeon: Jada Vargas MD; [place] [facility] [place] Service: Colorectal EGD N/A 08/15/2022 Procedure: ESOPHAGOGASTRODUODENOSCOPY WITH BIOPSY; Surgeon: Tyshawn Santos MD; Location: Endo; Service: Gastroenterology GALLBLADDER HC LEFT HEART CATH N/A 09/26/2022 Procedure: Left Heart Cath; Surgeon: Tor Long MD; Location: [facility]; Service: Cardiovascular HYSTERECTOMY JOINT REPLACEMENT Left knee ORTHOPEDIC SURGERY r wrist surgery, left ankle, right rotator cuff ROTATOR CUFF REPAIR Right SIGMOIDOSCOPY FLEXIBLE N/A 06/23/2022 Procedure: SIGMOIDOSCOPY FLEXIBLE WITH BIOPSY; Surgeon: Tyshawn Santos MD; Location: [facility]; Service: Gastroenterology THYROIDECTOMY N/A 07/15/2015 Procedure: TOTAL THYROIDECTOMY; Surgeon: Lopez Alonso MD; Location: [facility]; Service: US ECHO TRANSTHORACIC FOLLOWUP [...] 5' 5 Wt 98 kg (216 lb) NwH928% BMI 35.94 kg/m General Appearance: alert; acutely [...] 07/10/2013 Years since quittin.6 Smokeless Tobacco Never [id number] NoteHMS HISTORY AND PHYSICAL -- [facility] Patient Name: Radha Shafer : 1960 MR #: [id number] Admit Date: 02/13/2025 Physicians: No, Physician (Family); No ref. provider found (Referring) Radha Shafer is a 64 y.o. female patient of Erin, Physician with history of COPD on home oxygen, struct of sleep apnea, hypertension, chronic kidney disease, hypothyroidism, CPT deficiency presented to [facility] on 02/13/2025 with shortness of breath. [...] Angiogram; Surgeon: Tor Long MD; Location: [facility]; Service: Cardiovascular CARDIOVASCULAR STRESS TEST CHOLECYSTECTOMY COLONOSCOPY with biopsies COLONOSCOPY N/A 02/17/2022 Procedure: COLONOSCOPY; Surgeon: Jada Vargas MD; [place] [facility] [place]; Service: Colorectal EGD N/A 08/15/2022 Procedure: ESOPHAGOGASTRODUODENOSCOPY WITH BIOPSY; Surgeon: Tyshawn Santos MD; Location: Endo; Service: Gastroenterology GALLBLADDER HC LEFT HEART CATH N/A 09/26/2022 Procedure: Left Heart Cath; Surgeon: Tor Long MD; Location: [facility]; Service: Cardiovascular HYSTERECTOMY JOINT REPLACEMENT Left knee ORTHOPEDIC SURGERY r wrist surgery, left ankle, right rotator cuff ROTATOR CUFF REPAIR Right SIGMOIDOSCOPY FLEXIBLE N/A 06/23/2022 Procedure: SIGMOIDOSCOPY FLEXIBLE WITH BIOPSY; Surgeon: Tyshawn Santos MD; Location: [facility]; Service: Gastroenterology THYROIDECTOMY N/A 07/15/2015 Procedure: TOTAL THYROIDECTOMY; Surgeon: Lopez Alonso MD; Location: [facility]; Service: US ECHO TRANSTHORACIC FOLLOWUP LIMITED WRIST SURGERY Right Family History Family History Problem Relation Age of Onset Heart disease Mother Lupus Mother Stroke Mother Arthrit (more content not included)...[facility]04-10-2025 History and physical note* Susan Thakur MD - 02/13/2025 8:20 PM EDT [facility] HISTORY AND PHYSICAL -- [facility] Patient Name: Radha Shafer : 1960 MR #: [id number] Admit Date: 02/13/2025 Physicians: No, Physician (Family); No ref. provider found (Referring) Radha Shafer is a 64 y.o. female patient of No, Physician with history of COPD on home oxygen, struct of sleep apnea, hypertension, chronic kidney disease, hypothyroidism, CPT deficiency presented to [facility] on 02/13/2025 with shortness of breath. [...] Angiogram; Surgeon: Tor Long MD; Location: [facility]; Service: Cardiovascular CARDIOVASCULAR STRESS TEST CHOLECYSTECTOMY COLONOSCOPY with biopsies COLONOSCOPY N/A 02/17/2022 Procedure: COLONOSCOPY; Surgeon: Jada Vargas MD; [place] [facility] [place]; Service: Colorectal EGD N/A 08/15/2022 Procedure: ESOPHAGOGASTRODUODENOSCOPY WITH BIOPSY; Surgeon: Tyshawn Santos MD; Location: Endo; Service: Gastroenterology GALLBLADDER HC LEFT HEART CATH N/A 09/26/2022 Procedure: Left Heart Cath; Surgeon: Tor Long MD; Location: [facility]; Service: Cardiovascular HYSTERECTOMY JOINT REPLACEMENT Left knee ORTHOPEDIC SURGERY r wrist surgery, left ankle, right rotator cuff ROTATOR CUFF REPAIR Right SIGMOIDOSCOPY FLEXIBLE N/A 06/23/2022 Procedure: SIGMOIDOSCOPY FLEXIBLE WITH BIOPSY; Surgeon: Tyshawn Santos MD; Location: [facility]; Service: Gastroenterology THYROIDECTOMY N/A 07/15/2015 Procedure: TOTAL THYROIDECTOMY; Surgeon: Lopez Alonso MD; Location: [facility]; Service: US ECHO TRANSTHORACIC FOLLOWUP [...] 5 Wt 98 kg (216 lb) SpO2 95% BMI 35.94 kg/m General Appearance: alert; acutely [...] quittin.6 Smokeless Tobacco Never documented in this [id number] Procedure note* ED Procedure Note - Astrid [...] without acute dynamic changes, no STEMI. NSR. MI interval 144 ms. QRS 90 ms. BPM: 94 Clinical impression: normal ECG [id number] Emergency department Note* Mihaela Chavez RN - 02/13/2025 5:18 PM EDT Received call from Lab, states CPK result will be delayed d/t machine down for maintenance Dr Sanders updated [id number] Procedure note* ED Procedure Note - Astrid [...] ECG and sinus tachycardia Comments: Sinus tachycardia. MI interval 140 ms. QRS [address] and T wave abnormality. No STEMI. [id number] Physician Emergency department Note* Astrid Sanders DO - 02/13/2025 4:07 PM EDT EMERGENCY MEDICINE PROVIDER NOTE WELCOME TO [facility] NAME: Radha Shafer AGE: 64 y.o. SEX: female : 1960 ENCOUNTER DATE: 02/13/25 CSN: [id number] PCP: Erin, Physician History of Presenting Illness/Medical [...] was given 4 baby aspirin by EMS STEAMFITTER SUPERVISOR. No nitroglycerin. Patient states that she was [...] ear normal. Nose: Nose normal. Mouth/Throat: Lips: Hoyt. Mouth: Mucous membranes are moist. Eyes: General: [...] other components within normal limits Narrative: [facility] has implemented the [...] Procedure Abnormality Status --------- ------ CBC Auto Differential[[id number]] Abnormal Final result Please view results for these tests on the individual orders. OBTAIN VENOUS BLOOD GASES AND PERFORM CPK TSH BASIC METABOLIC PANEL MAGNESIUM LEVEL CBC AND DIFFERENTIAL Narrative: The following orders were created for panel order CBC and Differential. Procedure Abnormality Status --------- ------ CBC Auto Differential[[id number]] Please view results for these tests on [...] Angiogram; Surgeon: Tor Long MD; Location: [facility]; Service: Cardiovascular CARDIOVASCULAR STRESS TEST CHOLECYSTECTOMY COLONOSCOPY with biopsies COLONOSCOPY N/A 02/17/2022 Procedure: COLONOSCOPY; Surgeon: Jada Vargas MD; [place] [facility] [place]; Service: Colorectal EGD N/A 08/15/2022 Procedure: ESOPHAGOGASTRODUODENOSCOPY WITH BIOPSY; Surgeon: Tyshawn Santos MD; Location: Endo; Service: Gastroenterology GALLBLADDER HC LEFT HEART CATH N/A 09/26/2022 Procedure: Left Heart Cath; Surgeon: Tor Long MD; Location: [facility]; Service: Cardiovascular HYSTERECTOMY JOINT REPLACEMENT Left knee ORTHOPEDIC SURGERY r wrist surgery, left ankle, right rotator cuff ROTATOR CUFF REPAIR Right SIGMOIDOSCOPY FLEXIBLE N/A 06/23/2022 Procedure: SIGMOIDOSCOPY FLEXIBLE WITH BIOPSY; Surgeon: Tyshawn Santos MD; Location: [facility]; Service: Gastroenterology THYROIDECTOMY N/A 07/15/2015 Procedure: TOTAL THYROIDECTOMY; Surgeon: Lopez Alonso MD; Location: [facility]; Service: US ECHO TRANSTHORACIC FOLLOWUP [...] total) by mouth daily with breakfast . lxbrenqzfwx-vkmbeffro-adgfmhyk (Trelegy Ellipta) 200-62.5-25 mcg DsDv Inhale 1 [...] disease) stage 3, GFR 30-59 ml/min ([facility]) 06/26/2022 Pain of upper abdomen 07/19/2022 Nausea 07/19/2022 Acute hypercapnic respiratory failure ([facility]) 09/02/2024 COPD exacerbation ([facility]) 09/21/2024 Resolved Ambulatory Problems Diagnosis Date Noted [...] 89 ml/min) Lung nodule Neuromuscular disorder ([facility]) 2015 Obesity On home oxygen therapy Scoliosis [...] 5' 5 Wt 98 kg (216 lb) RtF231% BMI 35.94 kg/m In brief, patient is [...] level and did provide 500 ccIVF, unfortunately labor law professor had called ED charge nurse to inform [...] Acid: 1.5 [ZW] 1716 Informed by ED independent freight agent that lab team had called to inform [...] [ZW] ED Course User Index [ZW] Astrid Sanders DO The patient will require admission to [...] (HCC) 7. Elevated CPK 8. 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[facility]) 9. Myalgia Discussed with: Hospitalist ED Disposition ED Disposition Hospitalize Condition -- Comment Reason for inpatient over two midnights: IV lasix . . Astrid Sanders DO ED Attending Physician [facility] (Please note that portions of this note may have been completed with a voice recognition program. 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 Astrid Sanders DO 02/13/25 1779 [id number] Emergency department Triage note* Astrid Connolly RN - 02/13/2025 3:40 PM EDT Pt reports sob and chest pain with hx of copd. Pt was given asa and duoneb treatment. Pt reports feeling much better after duoneb [id number] Emergency department Note* Marina Prado RN - 02/13/2025 3:40 PM EDT Bed: 25 Expected date: Expected time: Means of arrival: Comments: Nick [id number] Telephone encounter Note* Telephone Encounter - Julissa Parikh MA - 02/05/2025 7:33 AM EDT Received messaging requesting refill from [facility] Medication: Doljovi Last Office Visit: 06/03/2024 Next Scheduled Visit: Not scheduled Current Medication as of last visit (yes/no): yes [facility]04-02-2025 Miscellaneous Notes* Telephone Encounter - Julissa Parikh MA - 02/05/2025 7:33 AM EDT Received messaging requesting refill from [facility] Medication: Doljovi Last Office Visit: 06/03/2024 Next Scheduled Visit: Not scheduled Current Medication as of last visit (yes/no): yes [facility] Evaluation note* Diagnosis Onset Date Resolution Status [...] 16 1:12pm Chronic abdominal pain noneactive Ju sd 2024 1:12pm Post-operative hypothyroidism noneac tive 2025 1:12pm Ventricular tachycardia noneactive [facility] 2024 1:12pm Essential hypertension noneactive [facility] 2024 1:12pm COPD (chronic obstructive pulmonary disease) noneactive April 16 1:12pm Obesity (BMI 30-39.9) noneactive Michael e 2024 1:12pm [facility] Work Phone: 1(659) 836-402002-20-2025 Evaluation note* Diagnosis Onset Date Resolution Status [...] cuff acute April 03, 2025 1 :50pm [facility] Work Phone: 1(170) 492-4138855424-86-9432 Evaluation note* Diagnosis Onset Date Resolution Status [...] apnea) chroni c April 04, 2025 1:38pm [facility] Work Phone: 1(272) 332-864102-20-2025 Evaluation note* Diagnosis Onset Date Resolution Status [...] noneactive 2025 1:12pm Chronic abdominal pain noneactive [facility] 2024 1:12pm Post-operative hypothyroidism noneac tive 2025 1:12pm Ventricular tachycardia noneactive [facility] 2024 1:12pm Essential hypertension noneactive [facility] 2024 1:12pm COPD (chronic obstructive pulmonary disease) noneactive April 16 1:12pm Obesity (BMI 30-39.9) noneactive [facility] 2024 1:12pm [facility] Work Phone: 1(767) 218-276202-20-2025 Evaluation note* Diagnosis Onset Date Resolution Status [...] noneac tive 2025 1:12pm Ventricular tachycardia noneactive [facility] 2024 1:12pm Essential hypertension noneactive 2024 1:12pm COPD (chronic obstructive pulmonary disease) noneactive April 16 1:12pm Obesity (BMI 30-39.9) noneactive Michael 2024 1:12pm 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, 024 1:13pm Prediabetes acute October 1:13pm FELISA (obstructive sleep apnea) chroni c October 16, 2024 1:13pm Stage 3b chronic kidney dise ase (CKD) noneactive October 16, 024 1:13pm Moderate major depression noneactive October 16, 2024 1:13pm Screening for osteoporosis noneactiv e October 16, 2024 1:13pm Mixed hyperlipidemia noneactive Dece mber 2023 1:13pm Chronic abdominal pain noneactive De cem2023 1:13pm Post-operative hypothyroidism noneac tive October 16, 2024 1:13pm Ventricular tachycardia noneactive D ecember 2023 1:13pm Essential hypertension noneactive De cem2023 1:13pm COPD (chronic obstructive pulmonary disease) noneactive [...] shoulder pain acute January 21, 2025 12:57pm [facility] Work Phone: 1(873) 180-513212-10-2024 Telephone encounter Note* Telephone Encounter - Cecille Johnson LPN - 10/15/2024 1:57 PM EST Images from the original note were not included. PA for Dojolvi approved by [employer] valid 11/06/2024- 11/05/2025 PA# [id number] Updated: Genetics PA calendar Medication comments Copy of approval letter sent to HIM [employer] [facility]12-10-2024 Miscellaneous Notes* Telephone Encounter - Cecille Johnson LPN - 10/15/2024 1:57 PM EST Images from the original note were not included. PA for Dojolvi approved by [employer] valid 11/06/2024- 11/05/2025 PA# [id number] Updated: Genetics PA calendar Medication comments Copy of approval letter sent to HIM * Telephone Encounter - Cecille Johnson LPN - 10/15/2024 10:43 AM EST Images from the original note were not included. Received PA renewal request for Dojolvi from [employer] as current PA mateo 11/05. PA submitted with office notes and labs via CMM. documented in this encounterNatJ.[facility]. [facility]12-10-20[facility] Telephone encounter Note* Telephone Encounter - Cecille Johnson LPN - 10/15/2024 10:43 AM EST Images from the original note were not included. Received PA renewal request for Dojolvi from [employer] as current PA mateo 11/05. PA submitted with office notes and labs via CMM. [facility]11-20-2024 History of Present illness Narrative* Marsha Miguel [...] Discharge Plan Status: In-basket message received from [employer]. Patient has [place] Medicaid which will not cover bathroom equipment. JASON oGoden updated the patient. Berkley to update this [...] Alcazar MD - 09/24/2024 12:20 PM EST [facility] PROGRESS NOTE Assessment and Plan Radha Shafer is a 64 y.o. female smoker with background history of COPD and attendant chronic respiratory failure on 4 L NC at baseline, FELISA, HTN, CKD, hypothyroidism and CPT deficiency who presented to [facility] on 09/21/2024 with SOB. CXR showed [...] deficiency CPK chronically elevated. She follows with [facility] Liberalize oral intake. Morbid obesity BMI 38.1 [...] Larson MD - 09/23/2024 3:32 PM EST OACO-HM-YZDO ENCOUNTER FOR HOME MEDICAL EQUIPMENT PATIENT: Radha Shafer : 1960 Statement of Care: I certify that Radha Shafer is under my care and that I, a Nurse Practitioner, Physician's Outside Sales Engineer, or Resident working with me, had a iynm-pe-mmgt encounter with this patient today to evaluate and discuss the need for home medical equipment. I certify that based on the findings of this evaluation, which included but was not limited to the iocp-tf-pcsa requirements, the following home medical equipment is medically necessary: Shower chairand grab bar. Signed by: Chanel Larson MD on 09/23/2024 * Chanel Larson MD - 09/23/2024 3:28 PM EST [facility] PROGRESS NOTE Assessment and Plan Radha Shafer is a 64 y.o. female smoker with background history of COPD and attendant chronic respiratory failure on 4 L NC at baseline, FELISA, HTN, CKD, hypothyroidism and CPT deficiency who presented to [facility] on 09/21/2024 with SOB. CXR showed [...] deficiency CPK chronically elevated. She follows with [facility] Liberalize oral intake. Resolved acute medical issues [...] Larson MD - 09/22/2024 9:45 AM EST [facility] PROGRESS NOTE Assessment and Plan Assessment and Plan Radha Shafer is a 64 y.o. female smoker with background history of COPD and attendant chronic respiratory failure on 4 L NC at baseline, FELISA, HTN, CKD, hypothyroidism and CPT deficiency who presented to [facility] on 09/21/2024 with SOB. CXR showed [...] deficiency CPK chronically elevated. She follows with [facility] CK 713. Continue gentle fluid hydration. Resolved [...] and affect, no agitation documented in this [id number] Miscellaneous Notes* Quick Note - Emy Strickland [...] Outcome: Partially Met 09/24/2024 1027 by Jaspreet aBrnes, RN Outcome: Partially Met Goal: Knowledge of [...] Met * Plan of Care - Prema Fowler, RN - 09/23/2024 10:33 PM EST Problem: [...] functioning Outcome: Partially Met documented in this [id number] Progress note* Quick Note - Emy Strickland RN - 09/25/2024 12:30 PM EST Charting of SN Caity Flores reviewed [id number] NoteHMS DISCHARGE SUMMARY -- [facility] Radha Shafer Admitted: 09/21/2024 Discharge Date: 09/25/24 PCP Handoff Recommended Outpatient Testing Follow-up with PCP Results Pending At Discharge Stool PCR Clinical Summary Radha Shafer is a 64 y.o. female smoker with background history of COPD and attendant chronic respiratory failure on 4 L NC at baseline, FELISA, HTN, CKD, hypothyroidism and CPT deficiency who presented to [facility] on 09/21/2024 with SOB. CXR showed [...] deficiency CPK chronically elevated. She follows with [facility] Liberalize oral intake. Morbid obesity BMI 38.1 [...] 1 (one) capsule ( (more content not included)...[facility] 09-25-2024 Hospital course Narrative* Jossie Alcazar MD - 09/25/2024 11:04 AM EST Images from the original note were not included. [facility] DISCHARGE SUMMARY -- [facility] Radha Shafer Admitted: 09/21/2024 Discharge Date: 09/25/24 PCP Handoff Recommended Outpatient Testing Follow-up with PCP Results Pending At Discharge Stool PCR Clinical Summary Radha Shafer is a 64 y.o. female smoker with background history of COPD and attendant chronic respiratory failure on 4 L NC at baseline, FELISA, HTN, CKD, hypothyroidism and CPT deficiency who presented to [facility] on 09/21/2024 with SOB. CXR showed [...] deficiency CPK chronically elevated. She follows with [facility] Liberalize oral intake. Morbid obesity BMI 38.1 [...] Trelegy Ellipta 200-62.5-25 mcg Dsdv Generic drug: kaafvqwqwtb-xswokatti-yxerknly Inhale 1 (one) Inhalation daily . Quantity: [...] on 09/25/24, 11:04 AM documented in this [id number] Plan of care note* Plan of Care [...] maximum level of psychosocial functioning Outcome: Met [id number] NoteHMS PROGRESS NOTE Assessment and Plan Radha Shafer is a 64 y.o. female smoker with background history of COPD and attendant chronic respiratory failure on 4 L NC at baseline, FELISA, HTN, CKD, hypothyroidism and CPT deficiency who presented to [facility] on 09/21/2024 with SOB. CXR showed [...] deficiency CPK chronically elevated. She follows with [facility] Liberalize oral intake. Morbid obesity BMI 38.1 [...] agitation AUTHENTICATED BY JOSSIE ALCAZAR ON 09/24/2024 12:24:12[facility] 09-24-2024 Progress note* Quick Note - [...] nebulizer and MDI as needed. Discussed associated confidential investigator issues with non compliant FELISA. [id number] Plan of care note* Plan of Care [...] by Jaspreet Barnes RN Outcome: Partially Met [id number] Plan of care note* Plan of Care [...] level of psychosocial functioning Outcome: Partially Met [facility] [id number] Plan of care note* Plan of Care [...] level of psychosocial functioning Outcome: Partially Met [facility] HealthFdbpVtuzid77-25-8013 ZoveTVNH-KP-KQAN ENCOUNTER FOR HOME MEDICAL EQUIPMENT PATIENT: Radha Shafer : 1960 Statement of Care: I certify that Radha Shafer is under my care and that I, a Nurse Practitioner, Physician's Outside Sales Engineer, or Resident working with me, had a arcw-st-wtal encounter with this patient today to evaluate and discuss the need for home medical equipment. I certify that based on the findings of this evaluation, which included but was not limited to the lrro-nu-jhzz requirements, the following home medical equipment is medically necessary: Shower chair and grab bar. Signed by: Chanel Larson MD on 09/23/2024 AUTHENTICATED BY CHANEL LARSON, ON 09/23/2024 15:33:43[facility]11-18-2024 NoteHMS PROGRESS NOTE Assessment and Plan Radha Shafer is a 64 y.o. female smoker with background history of COPD and attendant chronic respiratory failure on 4 L NC at baseline, FELISA, HTN, CKD, hypothyroidism and CPT deficiency who presented to [facility] on 09/21/2024 with SOB. CXR showed [...] deficiency CPK chronically elevated. She follows with [facility] Liberalize oral intake. Resolved acute medical issues [...] agitation AUTHENTICATED BY CHANEL LARSON, ON 09/23/2024 15:29:[address] [place], [place] [id number] Progress note* Quick Note - Brianna Tan, [...] within 6 days. JOLIE Chang, RASHEEDN, LD [id number] Consult note* Marsha Miguel, PERSONALIZED LIVING ASSISTANT - 09/23/2024 11:46 AM ESTAssociated Order(s): IP CONSULT TO CARE MANAGEMENT Care Management Consult Note Date: 09/23/2024 Time: 11:56 AM Patient Name: Radha Shafer Date of : 1960 Reason for Consult: Discharge Plan: Plan A: Home Discharging Transportation Plan: Discharge Plan Status: Spoke with Dr. Larson. Patient was requesting to speak with social worker masters. In to see patient. Patient was educated [...] reports she follows with Dr. Gordon in [place] for primary care. Patient requesting grab bars, a shower chair, and a wedge for sleeping. No other needs identified at this time. Spoke with Aramis with [employer]. [employer] does not have wedge pillows. Secure chat sent to Dr. Larson regarding need for shower chair and grab bar. In-basket message sent to [employer]. Assessment and Background Information: Living Arrangements: Children [...] (!) Yes Location of chronic pain:: back [id number] Consult note* Marsha Miguel LISW - 09/23/2024 11:46 AM ESTAssociated Order(s): IP CONSULT TO CARE MANAGEMENT Care Management Consult Note Date: 09/23/2024 Time: 11:56 AM Patient Name: Radha Shafer Date of : 1960 Reason for Consult: Discharge Plan: Plan A: Home Discharging Transportation Plan: Discharge Plan Status: Spoke with Dr. Larson. Patient was requesting to speak with social worker masters. In to see patient. Patient was educated [...] reports she follows with Dr. Gordon in [place] for primary care. Patient requesting grab bars, a shower chair, and a wedge for sleeping. No other needs identified at this time. Spoke with Aramis with [employer]. [employer] does not have wedge pillows. Secure chat sent to Dr. Larson regarding need for shower chair and grab bar. In-basket message sent to [employer]. Assessment and Background Information: Living Arrangements: Children [...] of chronic pain:: back documented in this [id number] Plan of care note* Plan of Care - Prema Folwer RN - 09/23/2024 1:03 AM EST Problem: [...] level of psychosocial functioning Outcome: Partially Met [id number] NoteHMS PROGRESS NOTE Assessment and Plan Assessment and Plan Radha Shafer is a 64 y.o. female smoker with background history of COPD and attendant chronic respiratory failure on 4 L NC at baseline, FELISA, HTN, CKD, hypothyroidism and CPT deficiency who presented to [facility] on 09/21/2024 with SOB. CXR showed [...] deficiency CPK chronically elevated. She follows with [facility] CK 713. Continue gentle fluid hydration. Resolved [...] agitation AUTHENTICATED BY CHANEL LARSON, ON 09/23/2024 15:32:03[facility]11-17-2024 Plan of care note* Plan of [...] level of psychosocial functioning Outcome: Partially Met [id number] Emergency department Note* Meaghan Butler RN - 09/21/2024 11:10 PM EST Report given to room 3718 nurse [id number] Emergency department Note* Meaghan Butler RN - 09/21/2024 11:10 PM EST Spoke with [facility]. Pt had methylprednisolone at 2110. Next dose to be given 8 hours later [id number] Emergency department Note* Meaghan Butler RN - 09/21/2024 11:10 PM EST Report given to room 3718 nurse * Meaghan Butler RN - 09/21/2024 11:10 PM EST Spoke with [facility]. Pt had methylprednisolone at 2110. Next dose [...] Talbot MD - 09/21/2024 8:43 PM EST [facility] ED note NAME: Radha Shafer 64 y.o. CSN: [id number] PCP: No, Physician History: Chief Complaint: Shortness [...] Angiogram; Surgeon: Tor Long MD; Location: [facility]; Service: Cardiovascular CARDIOVASCULAR STRESS TEST CHOLECYSTECTOMY COLONOSCOPY with biopsies COLONOSCOPY N/A 02/17/2022 Procedure: COLONOSCOPY; Surgeon: Jada Vargas MD; [place] [facility]; Service: Colorectal EGD N/A 08/15/2022 Procedure: ESOPHAGOGASTRODUODENOSCOPY WITH BIOPSY; Surgeon: Tyshawn Santos MD; Location: [facility]; Service: Gastroenterology GALLBLADDER HC LEFT HEART CATH N/A 09/26/2022 Procedure: Left Heart Cath; Surgeon: Tor Long MD; Location: [facility]; Service: Cardiovascular HYSTERECTOMY JOINT REPLACEMENT Left knee ORTHOPEDIC SURGERY r wrist surgery, left ankle, right rotator cuff ROTATOR CUFF REPAIR Right SIGMOIDOSCOPY FLEXIBLE N/A 06/23/2022 Procedure: SIGMOIDOSCOPY FLEXIBLE WITH BIOPSY; Surgeon: Tyshawn Santos MD; Location: [facility]; Service: Gastroenterology THYROIDECTOMY N/A 07/15/2015 Procedure: TOTAL THYROIDECTOMY; Surgeon: Lopez Alonso MD; Location: [facility]; Service: US ECHO TRANSTHORACIC FOLLOWUP [...] Socioeconomic History Marital status: Occupational History 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 iitxvtvfgno-vcxuhcyue-lnaxmsfi (Trelegy Ellipta) 200-62.5-25 mcg DsDv Inhale 1 [...] other components within normal limits Narrative: [facility] has implemented the [...] Procedure Abnormality Status --------- ------ CBC Auto Differential[[id number]] Abnormal Final result Please view results for these tests on the individual orders. 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 Hx of colonic polyps 01/07/2022 Rectal prolapse 03/01/2022 Diarrhea 06/21/2022 Non-traumatic rhabdomyolysis 06/25/2022 KRISTIN (acute kidney injury) ([facility]) 06/26/2022 CKD (chronic kidney disease) stage 3, GFR 30-59 ml/min ([facility]) 06/26/2022 Pain of upper abdomen 07/19/2022 Nausea 07/19/2022 Acute hypercapnic respiratory failure ([facility]) 09/02/2024 Resolved Ambulatory Problems Diagnosis Date Noted No Resolved Ambulatory Problems Past Medical History: Diagnosis Date Anxiety Arthritis Back pain Bladder problem Cancer (HCC) Chronic pain disorder Colitis COPD (chronic obstructive pulmonary disease) ([facility]) Depression Diabetes (HCC) Diverticulosis Emphysema of lung [...] None Sally Talbot MD ED Attending Physician [facility] Emergency Department (Please note that portions [...] date: Expected time: Means of arrival: Comments: [place] documented in this [id number] Emergency department Note* Meaghan Butler RN - 09/21/2024 10:14 PM EST Hourly rounding assessment completed on the patient. [x] Patient updated on plan of care [x] All comfort needs addressed [x] Patient updated on duration of visit All questions answered, patient denies further needs. Call light within reach. [id number] History and physical note* Nabila Chavez MD - 09/21/2024 10:01 PM EST [facility] HISTORY AND PHYSICAL -- [facility] Patient Name: Radha Shafer : 1960 MR #: [id number] Admit Date: 09/21/2024 Physicians: Erin, Physician (Family); No ref. provider found (Referring) Radha Shafer is a 64 y.o. female patient of Erin, Physician with history of COPD, chronic hypoxemic respiratory failure on 4L NC at baseline, hypothyroidism, CPT deficiency, HTN, CKD, FELISA presentedto [facility] on 09/21/2024 with shortness of breath. [...] CPT deficiency, HTN, CKD, FELISA presented to [facility] on 09/21/2024 with shortness of breath. [...] Angiogram; Surgeon: Tor Long MD; Location: [facility]; Service: Cardiovascular CARDIOVASCULAR STRESS TEST CHOLECYSTECTOMY COLONOSCOPY with biopsies COLONOSCOPY N/A 02/17/2022 Procedure: COLONOSCOPY; Surgeon: Jada Vargas MD; [place] [facility] [place]; Service: Colorectal EGD N/A 08/15/2022 Procedure: ESOPHAGOGASTRODUODENOSCOPY WITH BIOPSY; Surgeon: Tyshawn Santos MD; Location: Endo; Service: Gastroenterology GALLBLADDER HC LEFT HEART CATH N/A 09/26/2022 Procedure: Left Heart Cath; Surgeon: Tor Long MD; Location: [facility]; Service: Cardiovascular HYSTERECTOMY JOINT REPLACEMENT Left knee ORTHOPEDIC SURGERY r wrist surgery, left ankle, right rotator cuff ROTATOR CUFF REPAIR Right SIGMOIDOSCOPY FLEXIBLE N/A 06/23/2022 Procedure: SIGMOIDOSCOPY FLEXIBLE WITH BIOPSY; Surgeon: Tyshawn Santos MD; Location: Endo; Service: Gastroenterology THYROIDECTOMY N/A 07/15/2015 Procedure: TOTAL THYROIDECTOMY; Surgeon: Lopez Alonso MD; Location: [facility]; Service: US ECHO TRANSTHORACIC FOLLOWUP [...] normal coloration Psych: normal mood and affect [id number] NoteHMS HISTORY AND PHYSICAL -- [facility] Patient Name: Radha Shafer : 1960 MR #: [id number] Admit Date: 09/21/2024 Physicians: No, Physician (Family); No ref. provider found (Referring) Radha Shafer is a 64 y.o. female patient of No, Physician with history of COPD, chronic hypoxemic respiratory failure on 4L NC at baseline, hypothyroidism, CPT deficiency, HTN, CKD, FELISA presented to [facility] on 09/21/2024 with shortness of breath. [...] CPT deficiency, HTN, CKD, FELISA presented to [facility] on 09/21/2024 with shortness of breath. [...] Angiogram; Surgeon: Tor Long MD; Location: [facility]; Service: Cardiovascular CARDIOVASCULAR STRESS TEST CHOLECYSTECTOMY COLONOSCOPY with biopsies COLONOSCOPY N/A 02/17/2022 Procedure: COLONOSCOPY; Surgeon: Jada Vargas MD; [place] [facility] [place]; Service: Colorectal EGD N/A 08/15/2022 Procedure: ESOPHAGOGASTRODUODENOSCOPY WITH BIOPSY; Surgeon: Tyshawn Santos MD; Location: Endo; Service: Gastroenterology GALLBLADDER HC LEFT HEART CATH N/A 09/26/2022 Procedure: Left Heart Cath; Surgeon: Tor Long MD; Location: [facility]; Service: Cardiovascular HYSTERECTOMY (more content not included)...[facility]11-16-2024 History and physical note* Nabila Chavez MD - 09/21/2024 10:01 PM EST [facility] HISTORY AND PHYSICAL -- [facility] Patient Name: Radha Shafer : 1960 MR #: [id number] Admit Date: 09/21/2024 Physicians: No, Physician (Family); No ref. provider found (Referring) Radha Shafer is a 64 y.o. female patient of No, Physician with history of COPD, chronic hypoxemic respiratory failure on 4L NC at baseline, hypothyroidism, CPT deficiency, HTN, CKD, FELISA presentedto [facility] on 09/21/2024 with shortness of breath. [...] CPT deficiency, HTN, CKD, FELISA presented to [facility] on 09/21/2024 with shortness of breath. [...] Angiogram; Surgeon: Tor Long MD; Location: [facility]; Service: Cardiovascular CARDIOVASCULAR STRESS TEST CHOLECYSTECTOMY COLONOSCOPY with biopsies COLONOSCOPY N/A 02/17/2022 Procedure: COLONOSCOPY; Surgeon: Jada Vargas MD; [place] [facility] [place]; Service: Colorectal EGD N/A 08/15/2022 Procedure: ESOPHAGOGASTRODUODENOSCOPY WITH BIOPSY; Surgeon: Tyshawn Santos MD; Location: Endo; Service: Gastroenterology GALLBLADDER HC LEFT HEART CATH N/A 09/26/2022 Procedure: Left Heart Cath; Surgeon: Tor Long MD; Location: [facility]; Service: Cardiovascular HYSTERECTOMY JOINT REPLACEMENT Left knee ORTHOPEDIC SURGERY r wrist surgery, left ankle, right rotator cuff ROTATOR CUFF REPAIR Right SIGMOIDOSCOPY FLEXIBLE N/A 06/23/2022 Procedure: SIGMOIDOSCOPY FLEXIBLE WITH BIOPSY; Surgeon: Tyshawn Santos MD; Location: Endo; Service: Gastroenterology THYROIDECTOMY N/A 07/15/2015 Procedure: TOTAL THYROIDECTOMY; Surgeon: Lopez Alonso MD; Location: [facility]; Service: US ECHO TRANSTHORACIC FOLLOWUP [...] normal mood and affect documented in this [id number] Emergency department Note* Meaghan Butler RN - 09/21/2024 9:50 PM EST Hourly rounding assessment completed on the patient. [x] Patient updated on plan of care [x] All comfort needs addressed [x] Patient updated on duration of visit All questions answered, patient denies further needs. Call light within reach. [id number] Emergency department Note* Delmy Brock RRT - 09/21/2024 9:14 PM EST RT at bedside for ABG. Results given to . BiPAP initiated 21/04 rate of 18, FiO2 of 35%. Patient does state she wears 4L O2 at home around the clock and is noncompliant with her home CPAP.Patient educated on the importance of wearing her CPAP at night regularly. [id number] Physician Emergency department Note* Sally Talbot MD - 09/21/2024 8:43 PM EST [facility] ED note NAME: Radha Shafer 64 y.o. CSN: [id number] PCP: No, Physician History: Chief Complaint: Shortness [...] Angiogram; Surgeon: Tor Long MD; Location: [facility]; Service: Cardiovascular CARDIOVASCULAR STRESS TEST CHOLECYSTECTOMY COLONOSCOPY with biopsies COLONOSCOPY N/A 02/17/2022 Procedure: COLONOSCOPY; Surgeon: Jada Vargas MD; [place] [facility] [place]; Service: Colorectal EGD N/A 08/15/2022 Procedure: ESOPHAGOGASTRODUODENOSCOPY WITH BIOPSY; Surgeon: Tyshawn Santos MD; Location: Endo; Service: Gastroenterology GALLBLADDER HC LEFT HEART CATH N/A 09/26/2022 Procedure: Left Heart Cath; Surgeon: Tor Long MD; Location: [facility]; Service: Cardiovascular HYSTERECTOMY JOINT REPLACEMENT Left knee ORTHOPEDIC SURGERY r wrist surgery, left ankle, right rotator cuff ROTATOR CUFF REPAIR Right SIGMOIDOSCOPY FLEXIBLE N/A 06/23/2022 Procedure: SIGMOIDOSCOPY FLEXIBLE WITH BIOPSY; Surgeon: Tyshawn Santos MD; Location: Endo; Service: Gastroenterology THYROIDECTOMY N/A 07/15/2015 Procedure: TOTAL THYROIDECTOMY; Surgeon: Lopez Alonso MD; Location: [facility]; Service: US ECHO TRANSTHORACIC FOLLOWUP [...] Socioeconomic History Marital status: Occupational History Occupation: [employer] 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 ahycpwbdcrh-seiiundri-vqixzysc (Trelegy Ellipta) 200-62.5-25 mcg DsDv Inhale 1 [...] other components within normal limits Narrative: [facility] has implemented the [...] Procedure Abnormality Status --------- ------ CBC Auto Differential[[id number]] Abnormal Final result Please view results for [...] rhabdomyolysis 06/25/2022 KRISTIN (acute kidney injury) ([facility]) 06/26/2022 CKD (chronic kidney disease) stage 3, GFR 30-59 ml/min ([facility]) 06/26/2022 Pain of upper abdomen 07/19/2022 Nausea 07/19/2022 Acute hypercapnic respiratory failure ([facility]) 09/02/2024 Resolved Ambulatory Problems Diagnosis Date Noted [...] 89 ml/min) Lung nodule Neuromuscular disorder ([facility]) 2015 Obesity On home oxygen therapy Scoliosis [...] None Sally Talbot MD ED Attending Physician [facility] Emergency Department (Please note that portions of this note have been completed with a voice recognition software. Efforts were made to correct any errors, but occasionally words are mis-transcribed.) Sally Talbot MD 09/21/242158 [id number] Emergency department Note* Meaghan Butler RN - 09/21/2024 8:04 PM EST PT PLACED ON 4L FOR O2 AT 84% [address]. [id number] Emergency department Note* Meaghan Butler RN - 09/21/2024 8:00 PM EST Hourly rounding assessment completed on the patient. [x] Patient updated on plan of care [x] All comfort needs addressed [x] Patient updated on duration of visit All questions answered, patient denies further needs. Call light within reach. [id number] Emergency department Triage note* Meaghan Butler RN - 09/21/2024 7:53 PM EST PT ARRIVED VIA EMS WITH C/O SOB. 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 PT STATES THAT SHE STARTED WITH A HEADACHE THEN HEAVINESS IN CHEST HEAVINESS. PT ARRIVED TO ED ON 4L NC [id number] Emergency department Note* Selena Simms RN - 09/21/2024 7:52 PM EST Bed: 15 Expected date: Expected time: Means of arrival: Comments: Alireza [id number] NoteHeart & Vascular Clinic Note [facility] Visit Date: [...] #HTN #HLD #FELISA #ECHO; 04/2024. Done in [place]. LVEF-60% PLAN: --c/w metoprolol --pursue a cardiac [...] Angiogram; Surgeon: Tor Long MD; Location: [facility]; Service: Cardiovascular CARDIOVASCULAR STRESS TEST CHOLECYSTECTOMY COLONOSCOPY with biopsies COLONOSCOPY N/A 02/17/2022 Procedure: COLONOSCOPY; Surgeon: Jada Vargas MD; [place] [facility] [place] [place]; Service: Colorectal EGD N/A 08/15/2022 Procedure: ESOPHAGOGASTRODUODENOSCOPY WITH BIOPSY; Surgeon: Tyshawn Santos MD; Location: [facility]; Service: Gastroenterology GALLBLADDER HC LEFT HEART CATH N/A 09/26/2022 Procedure: Left Heart Cath; Surgeon: Tor Long MD; Location: [facility]; Service: Cardiovascular HYSTERECTOMY JOINT REPLACEMENT Left knee ORTHOPEDIC SURGERY r wrist surgery, left ankle, right rotator cuff ROTATOR CUFF REPAIR Right SIGMOIDOSCOPY FLEXIBLE N/A 06/23/2022 Procedure: SIGMOIDOSCOPY FLEXIBLE WITH BIOPSY; Surgeon: Tyshawn Santos MD; Location: Endo; Service: Gastroenterology THYROIDECTOMY N/A 07/15/2015 Procedure: TOTAL THYROIDECTOMY; Surgeon: Lopez Alonso MD; Location: [facility]; Service: US ECHO TRANSTHORACIC FOLLOWUP [...] Socioeconomic History Marital status: Occupational History Occupation: [employer] 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 Tobacco Use Smoking status: Former Current packs/day: 0.00 Average packs/day: 1 pack/day for 20.0 years (20.0 ttl pk-yrs) Types: Cigarettes Start date: 07/10/1993 Quit date: 07/10/2013 Years since quittin.2 Smokeless tobacco: Never Vaping Use Vaping status: Never Used Substance and Sexual Activity Alcohol use: No Drug use: Yes Frequency: 7.0 times per week Types: Marijuana Comment: currently (more content not included)...[facility] Ambulatory 09-18-2024 History of Present illness Narrative* Cb Boudreaux MD - 09/18/2024 1:51 PM EST Heart & Vascular Clinic Note [facility] Visit Date: [...] #HTN #HLD #FELISA #ECHO; 04/2024. Done in [place]. LVEF-60% PLAN: --c/w metoprolol --pursue a cardiac [...] Angiogram; Surgeon: Tor Long MD; Location: [facility]; Service: Cardiovascular CARDIOVASCULAR STRESS TEST CHOLECYSTECTOMY COLONOSCOPY with biopsies COLONOSCOPY N/A 02/17/2022 Procedure: COLONOSCOPY; Surgeon: Jada Vargas MD; [place] [facility] [place]; Service: Colorectal EGD N/A 08/15/2022 Procedure: ESOPHAGOGASTRODUODENOSCOPY WITH BIOPSY; Surgeon: Tyshawn Santos MD; Location: Endo; Service: Gastroenterology GALLBLADDER HC LEFT HEART CATH N/A 09/26/2022 Procedure: Left Heart Cath; Surgeon: Tor Long MD; Location: [facility]; Service: Cardiovascular HYSTERECTOMY JOINT REPLACEMENT Left knee ORTHOPEDIC SURGERY r wrist surgery, left ankle, right rotator cuff ROTATOR CUFF REPAIR Right SIGMOIDOSCOPY FLEXIBLE N/A 06/23/2022 Procedure: SIGMOIDOSCOPY FLEXIBLE WITH BIOPSY; Surgeon: Tyshawn Santos MD; Location: Endo; Service: Gastroenterology THYROIDECTOMY N/A 07/15/2015 Procedure: TOTAL THYROIDECTOMY; Surgeon: Lopez Alonso MD; Location: [facility]; Service: US ECHO TRANSTHORACIC FOLLOWUP [...] Socioeconomic History Marital status: Occupational History Occupation: [employer] 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 ATDTZXNZELR-QZCHDHUSH-ZJWUIGLD (TRELEGY ELLIPTA) 200-62.5-25 MCG DSDV Inhale 1 [...] See above Cb Boudreaux documented in this [id number] Instructions* Patient Instructions* Andree Veras RN - 09/09/2024 2:32 PM EST Images from the original note were not included. It was our pleasure to see you in EP Clinic today. Please contact: JASON Wall at [phone] JASON Candelario at [phone] FERMIN Downs RMA with questions, concerns, or [...] ears, or any other implanted or prosthetic medical officer. You have an intrauterine device (IUD) in [...] our office before restarting the medication at [phone]. Please bring your morning medications with you. [...] out of your body. documented in this [id number] History of Present illness Narrative* Jaspreet Barnes [...] Plan Status: Initial assessment completed by JASON Chairezlapping machine set up operator, in the emergency department. Please refer to her note. Care Management will continue to follow. 1044- Patient is discharged home. Assessment and Background Information: documented in this [id number] Miscellaneous Notes* Plan of Care - Jaspreet [...] Enviroment Outcome: Partially Met documented in this [id number] Plan of care note* Plan of Care - Jaspreet Barnes RN - 09/03/2024 3:32 PM EDT Problem: Actual or potential alteration in health Goal: Absence of healthcare acquired conditions Outcome: Partially Met Goal: Knowledge of Interdisciplinary Plan of Care Outcome: Partially Met Goal: Knowledge of Enviroment Outcome: Partially Met [id number] Hospital course Narrative* Ramírez Cunningham MD - 09/03/2024 9:38 AM EDT Images from the original note were not included. [facility] DISCHARGE SUMMARY -- [facility] Radha Shafer Admitted: 09/02/2024 Discharge Date: 09/03/24 PCP Handoff Recommended Outpatient Testing Follow up with professor of architecture Results Pending At Discharge none Clinical Summary [...] patient brings a piece of paper from professor of architecture that says check cpk and creatine every admission - [place] [address] + but if normal creatine consider outpatient [...] Trelegy Ellipta 200-62.5-25 mcg Dsdv Generic drug: ddhlakfamdd-hrfrggakk-tmyyeikg Inhale 1 (one) Inhalation daily . Quantity: [...] on 09/03/24, 9:38 AM documented in this [id number] Progress note* Quick Note - Kayla Mujica RN - 09/03/2024 1:25 AM EDT Patient provides paper regarding POC for disease. Patient demanding IVF at this time. This RN attempts to explain reasoning for no IVF at this time; patient remains adamant. RN advises patient to speak with rounding physician regarding POC. Stable at this time; will monitor. [id number] Plan of care note* Plan of Care - Kayla Mujica RN - 09/02/2024 10:57 PM EDT Problem: Actual or potential alteration in health Goal: Absence of healthcare acquired conditions Outcome: Met Goal: Knowledge of Interdisciplinary Plan of Care Outcome: Met Goal: Knowledge of Enviroment Outcome: Met [id number] Progress note* Quick Note - Kayla Mujica RN - 09/02/2024 8:00 PM EDT Patient medications verified with patient. Patient takes dojolvi TID; patient supplied medication sent to pharmacy for verification. Per patient,takes zanaflex prn at bed time; pharmacy notified of patient schedule. [id number] Plan of care note* Plan of Care [...] by Cherie Dias RN Outcome: Partially Met [id number] Plan of care note* Plan of Care - Cherie Dias RN - 09/02/2024 6:30 PM EDT Problem: Actual or potential alteration in health Goal: Absence of healthcare acquired conditions Outcome: Partially Met Goal: Knowledge of Interdisciplinary Plan of Care Outcome: Partially Met Goal: Knowledge of Enviroment Outcome: Partially Met [id number] Consult note* Mihaela Carroll RN - 09/02/2024 [...] that her PCP is Dr. Tomas in [place] and her insurance is [facility] managed medicare and medicaid. Patient stated [...] a baby due in 9 days, offered [facility] services is needed and granddaughter declined [...] routine activities due to chronic pain:: Yes [id number] Emergency department Note* Tram Perez RN - 09/02/2024 3:51 PM EDT Report called to receiving RN. All questions answered [id number] Consult note* Mihaela Carroll RN - 09/02/2024 [...] that her PCP is Dr. Tomas in [place] and her insurance is [facility] managed medicare and medicaid. Patient stated [...] a baby due in 9 days, offered [facility] services is needed and granddaughter declined [...] to chronic pain:: Yes documented in this [id number] Emergency department Note* Tram Perez RN - [...] CHAND NOTIFIED. FAMILY CAN BE REACHED AT [phone]. * Anna Dutton PSA - 09/02/2024 1:36 PM EDT PT'S GRAND DAUGHTER MARYLU CALLED FOR AN UPDATE. SHE CAN BE CALLED AT [phone]. JASON CHAND NOTIFIED. * Tram Perez RN [...] and tripoding d/t SOB documented in this [id number] Emergency department Note* Tram Perez RN - 09/02/2024 2:34 PM EDT Pt family member Marylu called and updated. All questions answered. She states she will talk to additional family members and pass info along. [id number] Emergency department Note* Anna Dutton PSA - 09/02/2024 2:17 PM EDT PT'S DAUGHTER LUIS CALLED FOR AN UPDATE. JASON CHAND NOTIFIED. FAMILY CAN BE REACHED AT [phone]. [id number] Emergency department Note* Anna Dutton PSA - 09/02/2024 1:36 PM EDT PT'S GRAND DAUGHTER MARYLU CALLED FOR AN UPDATE. SHE CAN BE CALLED AT [phone]. JASON CHAND NOTIFIED. [id number] History and physical note* Nabila Lama MD - 09/02/2024 12:39 PM EDT [facility] HISTORY AND PHYSICAL -- [facility] Patient Name: Radha Shafer : 1960 MR #: [id number] Admit Date: 09/02/2024 Physicians: No, Physician (Family); No ref. provider found (Referring) Radha Shafer is a 64 y.o. female patient of No, Physician with history of COPD chronic hypoxemic respiratory failure on 4 L of oxygen at home also history of hypertension myopathy with enzyme deficiency, hypothyroidism, GERD, hypertension, obesity and obstructive sleep apnea on CPAP presented to [facility] on 09/02/2024 with worsening shortness of [...] obstructive sleep apnea on CPAP presented to [facility] on 09/02/2024 with worsening shortness of [...] sigmoid COPD (chronic obstructive pulmonary disease) ([facility]) 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HCC) Per pt. - Depression Diabetes (HCC) Diverticulosis Emphysema of lung (HCC) GERD (gastroesophageal reflux disease) Hepatic steatosis History of echocardiogram History of stress test Hypertension Hypothyroidism Kidney disease, chronic, stage I (GFR over 89 ml/min) stage 3 Lung nodule Neuromuscular disorder ([facility]) 2015 I have cpt2 difficency Obesity On [...] Coronary Angiogram; Surgeon: Tor Long MD; Location: [facility] [employer]; Service: Cardiovascular CARDIOVASCULAR STRESS TEST CHOLECYSTECTOMY COLONOSCOPY with biopsies COLONOSCOPY N/A 02/17/2022 Procedure: COLONOSCOPY; Surgeon: Jada Vargas MD; [place] [facility] [place]; Service: Colorectal EGD N/A 08/15/2022 Procedure: ESOPHAGOGASTRODUODENOSCOPY WITH BIOPSY; Surgeon: Tyshawn Santos MD; Location: [facility]; Service: Gastroenterology GALLBLADDER HC LEFT HEART CATH N/A 09/26/2022 Procedure: Left Heart Cath; Surgeon: Tor Long MD; Location: [facility] [employer]; Service: Cardiovascular HYSTERECTOMY JOINT REPLACEMENT Left knee ORTHOPEDIC SURGERY r wrist surgery, left ankle, right rotator cuff ROTATOR CUFF REPAIR Right SIGMOIDOSCOPY FLEXIBLE N/A 06/23/2022 Procedure: SIGMOIDOSCOPY FLEXIBLE WITH BIOPSY; Surgeon: Tyshawn Santos MD; Location: Endo; Service: Gastroenterology THYROIDECTOMY N/A 07/15/2015 Procedure: TOTAL THYROIDECTOMY; Surgeon: Lopez Alonso MD; Location: [facility]; Service: US ECHO TRANSTHORACIC FOLLOWUP [...] normal coloration Psych: normal mood and affect [id number] History and physical note* Nabila Lama MD - 09/02/2024 12:39 PM EDT [facility] HISTORY AND PHYSICAL -- [facility] Patient Name: Radha Shafer : 1960 MR #: [id number] Admit Date: 09/02/2024 Physicians: No, Physician (Family); No ref. provider found (Referring) Radha Shafer is a 64 y.o. female patient of No, Physician with history of COPD chronic hypoxemic respiratory failure on 4 L of oxygen at home also history of hypertension myopathy with enzyme deficiency, hypothyroidism, GERD, hypertension, obesity and obstructive sleep apnea on CPAP presented to [facility] on 09/02/2024 with worsening shortness of [...] obstructive sleep apnea on CPAP presented to [facility] on 09/02/2024 with worsening shortness of [...] Angiogram; Surgeon: Tor Long MD; Location: [facility]; Service: Cardiovascular CARDIOVASCULAR STRESS TEST CHOLECYSTECTOMY COLONOSCOPY with biopsies COLONOSCOPY N/A 02/17/2022 Procedure: COLONOSCOPY; Surgeon: Jada Vargas MD; [place] [facility] [place]; Service: Colorectal EGD N/A 08/15/2022 Procedure: ESOPHAGOGASTRODUODENOSCOPY WITH BIOPSY; Surgeon: Tyshawn Santos MD; Location: Endo; Service: Gastroenterology GALLBLADDER HC LEFT HEART CATH N/A 09/26/2022 Procedure: Left Heart Cath; Surgeon: Tor Long MD; Location: [facility]; Service: Cardiovascular HYSTERECTOMY JOINT REPLACEMENT Left knee ORTHOPEDIC SURGERY r wrist surgery, left ankle, right rotator cuff ROTATOR CUFF REPAIR Right SIGMOIDOSCOPY FLEXIBLE N/A 06/23/2022 Procedure: SIGMOIDOSCOPY FLEXIBLE WITH BIOPSY; Surgeon: Tyshawn Santos MD; Location: [facility]; Service: Gastroenterology THYROIDECTOMY N/A 07/15/2015 Procedure: TOTAL THYROIDECTOMY; Surgeon: Lopez Alonso MD; Location: [facility]; Service: US ECHO TRANSTHORACIC FOLLOWUP [...] normal mood and affect documented in this [id number] Emergency department Note* Tram Perez RN - 09/02/2024 12:00 PM EDT Hourly rounding assessment completed on the patient. [x] Patient updated on plan of care [x] All comfort needs addressed [x] Patient updated on duration of visit All questions answered, patient denies further needs. Call light within reach. [id number] Emergency department Triage note* Tram Perez RN - 09/02/2024 11:23 AM EDT Pt from orthopedic office. Pt c/o SOB. Pt wears 4lpm PRN at home, presented to ED on RA. Pt was 77%on RA. Pt with non productive cough. Placed on 6lpm NC, O2 sat improved to 99%. Pt unable to speak in full sentences and tripoding d/t SOB [id number] Telephone encounter Note* Telephone Encounter - Raya Dutton MA - 03/06/2024 12:08 PM EDT Received refill request from [facility] for Levocarnitine. Last OV: 02/13/23 Last Labs: 02/13/23 Next OV: 06/03/24 Set up request for ePrescribe. [facility]05-01-2024 Miscellaneous Notes* Telephone Encounter - Raya Dutton MA - 03/06/2024 12:08 PM EDT Received refill request from [facility] for Levocarnitine. Last OV: 02/13/23 Last Labs: 02/13/23 Next OV: 06/03/24 Set up request for ePrescribe. documented in [facility]Cl[facility] Telephone encounter Note* Telephone Encounter - Cecille Johnson LPN - 01/29/2024 9:34 AM EDT Received refill request from [facility] for Dojolvi Last OV: 02/13/23 Last Labs: 02/13/23 Next OV: 02/12/24 Set up request for ePrescribe. [facility]03-25-2024 Miscellaneous Notes* Telephone Encounter - Cecille Johnson LPN - 01/29/2024 9:34 AM EDT Received refill request from [facility] for Dojolvi Last OV: 02/13/23 Last Labs: 02/13/23 Next OV: 02/12/24 Set up request for ePrescribe. documented in this encounterCl[facility]12-[facility]23 Telephone encounter Note* Telephone Encounter - Meliza Rust - 10/17/2023 8:08 AM EST Received fax from [facility] put in the metbolic box. [facility]12-12-2023 Miscellaneous Notes* Telephone Encounter - Meliza Rust - 10/17/2023 8:08 AM EST Received fax from [facility] put in the metbolic box. documented in this encounterCl[facility]12-[facility]-2023 History of Present illness Narrative* Rivas [...] PM EST [facility] [address] ([address]) [facility] [address] [facility] [id number] Radha Shafer is a 63 y.o. [...] allergies, and problem list items with Radha Aly during this visit. Review of Systems Constitutional: [...] improve. Rivas Jules MD documented in this [id number] Miscellaneous Notes* Telephone Encounter - Jada Glez - 02/27/2023 2:27 PM EDT Called to schedule a FU No answer Left message and recall to schedule from documented in this encounterNatJ.W. [facility]04-[facility] Telephone encounter Note* Telephone Encounter - Jada Glez - 02/27/2023 2:27 PM EDT Called to schedule a FU No answer Left message and recall to schedule from [facility]04-20-2023 Telephone encounter Note* Telephone Encounter - Elisabeth Matamoros MS, RD/LD - 02/23/2023 9:05 AM EDT Called Radha regarding her diet. She said she no longer had any questions for the dietitian. Encouraged her to call if she needed meal ideas or help with picking food. Gave her RD direct number as well. [facility]04-20-2023 Miscellaneous Notes* Telephone Encounter - Elisabeth Matamoros MS, RD/LD - 02/23/2023 9:05 AM EDT Called Radha regarding her diet. She said she no longer had any questions for the dietitian. Encouraged her to call if she needed meal ideas or help with picking food. Gave her RD direct number as well. documented in this encounterNationSt. [facility]01-31-2023 Telephone encounter Note* Telephone Encounter - Rocio Nickerson LPN - 12/06/2022 3:25 PM EST Called and spoke with Kevin at [facility] ([phone]), informed them of my conversation with the patient. Kevin requested we contact them back when the patient restarts the medication. [facility]01-31-2023 Miscellaneous Notes* Telephone Encounter - Rocio Nickerson LPN - 12/06/2022 3:25 PM EST Called and spoke with Kevin at [facility] ([phone]), informed them of my conversation with the [...] phone call from Selena at [facility]. Selena informed me that the patient had declined the refill request for Dojolivi because she was told by the provider to stop the medication due to diarrhea. Will contact the pharmacy with an update after speaking to the metabolic provider. Call back number [phone] documented in this encounterCl[facility]01-31-2023 Telephone encounter Note* Telephone Encounter - Roico Nickerson LPN - 12/06/2022 3:16 PM EST [...] she restarts the medication, patient voiced understanding. [facility]01-31-2023 Telephone encounter Note* Telephone Encounter - Rocio Nickerson LPN - 12/06/2022 1:42 PM EST Received phone call from Selena at [facility]. Selena informed me that the patient had declined the refill request for Dojolivi because she was told by the provider to stop the medication due to diarrhea. Will contact the pharmacy with an update after speaking to the metabolic provider. Call back number [phone] [facility]01-30-2023 History of Present illness Narrative* Khadra Perdomo MA - 12/05/2022 10:17 AM EST Refill request for DOJOLVI. documented in this encounterClinton [facility]01-18-2023 Telephone encounter Note* Telephone Encounter - Jada Glez - 11/23/2022 4:04 PM EST Third attempt and sent patient mychart message to reschedule. No answer, and patient has not read message. Sending letter in the mail. [facility]01-18-2023 Miscellaneous Notes* Telephone Encounter - Jada Glez - 11/23/2022 4:04 PM EST Third attempt and sent patient mychart message to reschedule. No answer, and patient has not read message. Sending letter in the mail. documented in this encounterClinton [facility] Hospital10-25-2022 Telephone encounter Note* Telephone Encounter - Shakira Gerard MD - 08/30/2022 12:38 PM EDT Previously call from [facility] regarding patient not eating (when we [...] nothing too concerning heart cabrera. Expressed that [place] in females are notlike the typical Mis [...] understanding. Will await call back next week. [facility] Work Phone: 1(726) 783-474810-25-2022 Miscellaneous Notes* Telephone Encounter - Shakira Gerard MD - 08/30/2022 12:38 PM EDT Previously call from [facility] regarding patient not eating (when we [...] nothing too concerning heart cabrera. Expressed that [place] in females are notlike the typical Mis [...] call back next week. documented in this encounterMer[facility]'s Ptojyboz45-59-1508 History of Present illness Narrative* Debra Rosalvayuniel Adamson, SQL DATA ANALYST - 07/19/2022 2:57 PM EDT Radha Benitez Hollis 62 y.o. 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 16 g 3 umajdehissx-newnszarj-gvkctrwz (Trelegy Ellipta) 200-62.5-25 mcg DsDv Inhale 1 [...] scheduled for EGD with Dr. Santos at [facility] on 08/15/2022 at 12:00PM. Debra Adamson CNP documented in this [id number] History of Present illness Narrative* Estrada Garcia MD - 07/08/2022 11:45 AM EDT [facility] [address] [facility] [address] [facility] [id number] Name: Radha Shafer Age: 62 y.o. 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 [...] to episodic myopathy. She is treated at [facility]. 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 piqxbziivov-dujfwlpdd-khwpfdqh (Trelegy Ellipta) 200-62.5-25 mcg DsDv Inhale 1 [...] weeks Estrada Garcia MD documented in this [id number] Hospital Discharge instructions * Discharge Instr - Other Orders* Angela Davila RN - 06/29/2022 11:01 AM EDT - The grip boss's office will be contacting you after you leave to schedule a follow up appointment. * Attachments The following attachments cannot be sent through Care Everywhere. * Diarrhea (Mauritanian) documented in this [id number] Hospital course Narrative* Leodan Geronimo MD - 06/29/2022 10:39 AM EDT Images from the original note were not included. [facility] DISCHARGE SUMMARY Radha Shafer Admitted: 06/21/2022 Discharge Date: 06/29/22 PCP Handoff Recommended Outpatient Testing Follow with GI for EGD Results Pending At Discharge None Clinical Summary Radha Shafer is a 62 y.o. female patient of Jonathan Rutherford CNP with history of chronic kidney disease stage III, hypertension, rectal prolapse s/p surgery at [facility] on March 2022, anemia, thyroid cancer s/p [...] Trelegy Ellipta 200-62.5-25 mcg Dsdv Generic drug: hofmroduojx-incfrtaeb-kagmilvf Inhale 1 (one) Inhalation daily . Quantity: [...] on 06/29/22, 10:39 AM documented in this [id number] History of Present illness Narrative* Leodan Geronimo MD - 06/28/2022 11:46 AM EDT [facility] PROGRESS NOTE Assessment and Plan Radha Shafer is a 62 y.o. female patient of Jonathan Rutherford CNP with history of chronic kidney disease stage III, hypertension, rectal prolapse s/p surgery at [facility] on March 2022, anemia, thyroid cancer s/p [...] Laboratory, Microbiology, Medications, and Transcriptions * Dafne Mendez RD - 06/28/2022 10:32 AM EDT Nutrition [...] clinical information: rectal prolapse s/p surgery at [facility] on March 2022 who presented to the [...] to follow as needed., while in-house. Office [phone] * Leodan Geronimo MD - 06/27/2022 11:43 AM EDT [facility] PROGRESS NOTE Assessment and Plan Radha Shafer is a 62 y.o. female patient of Jonathan Rutherford CNP with history of chronic kidney disease stage III, hypertension, rectal prolapse s/p surgery at [facility] on March 2022, anemia, thyroid cancer s/p [...] Hale MD - 06/26/2022 1:40 PM EDT [facility] PROGRESS NOTE Assessment and Plan Radha Shafer is a 62 y.o. female patient of Jonathan Rutherford CNP with history of chronic kidney disease stage III, hypertension, rectal prolapse s/p surgery at [facility] on March 2022, anemia, thyroid cancer s/p [...] Hale MD - 06/25/2022 1:52 PM EDT [facility] PROGRESS NOTE Assessment and Plan Radha Shafer is a 62 y.o. female patient of Jonathan Rutherford CNP with history of chronic kidney disease stage III, hypertension, rectal prolapse s/p surgery at [facility] on March 2022, anemia, thyroid cancer s/p [...] Hale MD - 06/24/2022 5:30 PM EDT [facility] PROGRESS NOTE Assessment and Plan Radha Shafer is a 62 y.o. female patient of Jonathan Rutherford CNP with history of chronic kidney disease stage III, hypertension, rectal prolapse s/p surgery at [facility] on March 2022, anemia, thyroid cancer s/p [...] NOTE Patient Name: Radha Shafer MR #: [id number] Assessment/Plan: 62 y.o. female with past medical [...] Loo MD - 06/23/2022 2:06 PM EDT [facility] PROGRESS NOTE Assessment and Plan Radha Shafer is a 62 y.o. female patient of Jonathan Rutherford CNP with history of COPD, chronic kidney disease stage III, hypertension, rectal prolapse s/p surgery at [facility] on March 2022 who presented to the [...] Louis CNP - 06/22/2022 11:41 AM EDT [facility] PROGRESS NOTE Assessment and Plan Radha Shafer is a 62 y.o. female patient of Jonathan Rutherford CNP with history of COPD, chronic kidney disease stage III, hypertension, rectal prolapse s/p surgery at [facility] on March 2022 who presented to the [...] III, hypertension, rectal prolapse s/p surgery at [facility] on March 2022 who presented to the [...] Microbiology, Medications, and Transcriptions documented in this [id number] Note* Sign Off Note - Nessa Jay CNP - 06/28/2022 10:23 AM EDT Gastroenterology Inpatient Follow-up 06/28/2022 Nessa Jay CNP [facility] Patient: Radha Shafer Date of : [...] AM: Laboratory, Pathology, Radiology, Medications, and Transcriptions [facility] Work Phone: 1(159) 743-887008-23-2022 Miscellaneous Notes* Sign Off Note - Nessa Jay CNP - 06/28/2022 10:23 AM EDT Gastroenterology Inpatient Follow-up 06/28/2022 Nessa Jay CNP [facility] Patient: Radha Shafer Date of : [...] Thank you, Peace Zaragoza RN, BSN [employer] [phone] After business hours you may contact Za Lopes at [phone] (Weekdays until 10 PM and weekends 8 [...] Thank you, Peace Zaragoza RN, BSN [employer] [phone] After business hours you may contact Za Lopes at [phone] (Weekdays until 10pm) * Brief Op Note [...] Thank you, Peace Zaragoza RN, BSN [employer] [phone] After business hours you may contact Za Lopes at [phone] (Weekdays until 10 PM and weekends 8 [...] Thank you, Peace Zaragoza RN, BSN [employer] [phone] After business hours you may contact Za Lopes at [phone] ( until 10pm) * Plan of Care - Annabelle Green RN - 06/22/2022 6:04 PM EDT [...] finally resulted * Plan of Care - Annabelle Green RN - 06/21/2022 7:02 PM EDT [...] PM EDT POC initiated documented in this [id number] Note* Plan of Care - Lawanda Baker RN - 06/27/2022 5:33 PM EDT POC updated and reviewed. IVF started. POC continues. [id number] Note* Plan of Care - Angela Davila [...] plan and instructions Outcome: Partially Met T [id number] Note* Plan of Care - Angela Davila [...] plan and instructions Outcome: Partially Met T [id number] Note* CDI Query - Sheri Hale MD [...] Thank you, Peace Zaragoza RN, BSN [employer] [phone] After business hours you may contact Za Lopes at [phone] (Weekdays until 10 PM and weekends 8 AM - 10 PM) [id number] Note* CDI Query - Sheri Hale MD [...] Thank you, Peace Zaragoza RN, BSN [employer] [phone] After business hours you may contact Za Lopes at [phone] (Weekdays until 10pm) [id number] Nurse Note* Lois Simmons RN - 06/23/2022 12:56 PM EDT Report called to primary nurse Josue, patient to return to room 2123. [id number] Nurse Note* Lois Simmons RN - 06/23/2022 12:56 PM EDT Report called to primary nurse Josue, patient to return to room 2123. * Susy Shelton RN - 06/23/2022 11:47 AM EDT Pt received Tap water enema by primary nurse. States still not clear. Pt is not receiving any anesthesia today for flex sig documented in this [id number] Note* Brief Op Note - Tyshawn Santos MD - 06/23/2022 12:49 PM EDT Sigmoidoscopy revealed mild proctitis sigmoid colon was normal biopsies were taken from rectum and sigmoid colon. Proctitis could be secondary to recent surgery for rectal prolapse. [facility] Work Phone: 1(262) 343-940708-18-2022 Nurse Note* Susy Shelton RN - 06/23/2022 11:47 AM EDT Pt received Tap water enema by primary nurse. States still not clear. Pt is not receiving any anesthesia today for flex sig [id number] Consult note* Debra Adamson CNP - 06/23/2022 9:40 AM EDTAssociated Order(s): IP CONSULT TO GASTROENTEROLOGY Gastroenterology Inpatient Consult 06/23/2022 Debra Adamson CNP [facility] Patient: Radha Shafer Date of : [...] TOTAL THYROIDECTOMY; Surgeon: Lopez Alonso MD; Location: [facility]; Service: US ECHO TRANSTHORACIC FOLLOWUP [...] (two) sprays into each nostril daily . gavqalyrpav-cejiwwroy-lrigqawc (Trelegy Ellipta) 200-62.5-25 mcg DsDv, Inhale 1 [...] Radiology, Medications, and Transcriptions Associated attestation - Tom, Tyshawn Gonzalez MD - 06/23/2022 12:40 PM EDT I personally interviewed and examined the patient. I reviewed [facility] nurse practitioner consultation report and agree [...] take biopsies to rule out microcytic colitis. [id number] Consult note* Debra Adamson CNP - 06/23/2022 9:40 AM EDTAssociated Order(s): IP CONSULT TO GASTROENTEROLOGY Gastroenterology Inpatient Consult 06/23/2022 Debra Adamson CNP [facility] Patient: Radha Shafer Date of : [...] TOTAL THYROIDECTOMY; Surgeon: Lopez Alonso MD; Location: [facility]; Service: US ECHO TRANSTHORACIC FOLLOWUP [...] (two) sprays into each nostril daily . qgpmcnimlci-mkwvjgxbo-lniyomnj (Trelegy Ellipta) 200-62.5-25 mcg DsDv, Inhale 1 [...] Radiology, Medications, and Transcriptions Associated attestation - Tom, Tyshawn Gonzalez MD - 06/23/2022 12:40 PM EDT I personally interviewed and examined the patient. I reviewed [facility] nurse practitioner consultation report and agree [...] rule out microcytic colitis. documented in this [id number] Note* CDI Query - Ryan Loo MD [...] Thank you, Peace Zaragoza RN, BSN [employer] [phone] After business hours you may contact Za Lopes at [phone] (Weekdays until 10 PM and weekends 8 AM - 10 PM) [id number] Note* CDI Query - Ryan Loo MD [...] Thank you, Peace Zaragoza RN, BSN [employer] [phone] After business hours you may contact Za Lopes at [phone] (Weekdays until 10pm) [id number] Note* Plan of Care - Annabelle Green RN - 06/22/2022 6:04 PM EDT [...] discharge plan and instructions Outcome: Partially Met [id number] Note* Plan of Care - Olga Russell MD - 06/21/2022 8:22 PM EDT Stool PCR still pending. Will not leave the patient uncovered overnight without antibiotics, will start the patient empirically on ciprofloxacin, ceftriaxone (allergy to penicillins) and p.o. vancomycin, de-escalate antibiotics as indicated when stool PCR finally resulted [id number] Note* Plan of Care - Annabelle Green RN - 06/21/2022 7:02 PM EDT [...] discharge plan and instructions Outcome: Partially Met [id number] Note* Plan of Care - Cheryl Martini RN - 06/21/2022 5:05 PM EDT POC initiated [id number] Emergency department Note* Duke Nath RN - 06/21/2022 4:47 PM EDT Pt had a small black soft BM. Pt cleaned and depends changed [id number] Emergency department Note* Duke Nath RN - 06/21/2022 4:47 PM EDT Pt had a small black soft BM. Pt cleaned and depends changed * Duke Nath RN - 06/21/2022 4:36 PM EDT Report called to the floor * Jaiden Bagley MD - 06/21/2022 11:10 AM EDTAssociated Order(s): Critical Care Images from the original note were not included. [facility] EMERGENCY [facility] PCP - Jonathan Rutherford [...] follow-up with a local GI services in [place]. Patient did have a couple of episodes [...] 2. Hepatic steatosis. 3. Extensive aortic calcification. [employer] Workstation ID: [id number] XR Chest 1 View Preliminary Result No evident acute process in the chest. 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 VFGNOKOQYWU-VSXXEISBG-ZZIMEGAS (TRELEGY ELLIPTA) 200-62.5-25 MCG DSDV Inhale 1 [...] arrival: Ambulance Comments: [place] documented in this [id number] Emergency department Note* Duke Nath RN - 06/21/2022 4:36 PM EDT Report called to the floor [id number] History and physical note* Olga Russell MD - 06/21/2022 2:37 PM EDT [facility] HISTORY AND PHYSICAL Patient Name: Radha Shafer : 1960 MR #: [id number] Admit Date: 06/21/2022 Physicians: Jonathan Rutherford CNP (Family); No ref. provider found (Referring) Radha Shafer is a 62 y.o. female patient of Jonathan Rutherford CNP with history of COPD, chronic kidney disease stage III, hypertension, rectal prolapse s/p surgery at [facility] on March 2022 who presented to the [...] III, hypertension, rectal prolapse s/p surgery at [facility] on March 2022 who presented to the [...] TOTAL THYROIDECTOMY; Surgeon: Lopez Alonso MD; Location: [facility]; Service: US ECHO TRANSTHORACIC FOLLOWUP [...] 06/21/22 2:49 PM Medications 06/21/22 2:49 PM [id number] History and physical note* Olga Russell MD - 06/21/2022 2:37 PM EDT [facility] HISTORY AND PHYSICAL Patient Name: Radha Shafer : 1960 [facility]: [id number] [id number] Admit Date: 06/21/2022 Physicians: Jonathan Rutherford CNP (Family); No ref. provider found (Referring) Radha Shafer is a 62 y.o. female patient of Jonathan Rutherford CNP with history of COPD, chronic kidney disease stage III, hypertension, rectal prolapse s/p surgery at [facility] on March 2022 who presented to the [...] III, hypertension, rectal prolapse s/p surgery at [facility] on March 2022 who presented to the [...] TOTAL THYROIDECTOMY; Surgeon: Lopez Alonso MD; Location: [facility]; Service: US ECHO TRANSTHORACIC FOLLOWUP [...] Medications 06/21/22 2:49 PM documented in this [id number] Physician Emergency department Note* Jaiden Bagley MD - 06/21/2022 11:10 AM EDTAssociated Order(s): Critical Care Images from the original note were not included. [facility] PCP - Jonathan Rutherford [...] follow-up with a local GI services in [place]. Patient did have a couple of episodes [...] 2. Hepatic steatosis. 3. Extensive aortic calcification. 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 VCXIXUMAXDN-BNMSHWUZZ-MWUSRDIY (TRELEGY ELLIPTA) 200-62.5-25 MCG DSDV Inhale 1 [...] medications on file Jaiden Bagley MD 06/21/22 1420 [facility] Work Phone: [phone]) 814-530408-16-2022 Emergency department Triage note* Leandro Montano II, RN - 06/21/2022 10:53 AM EDT Pt to ED with c/c of blood in stool and diarrhea. PT feels weak and nauseous. PT noticed blood in stool last night. PT reports having appointment with PCP tomorrow. [id number] Emergency department Note* Christal Jon RN - 06/21/2022 10:53 AM EDT Bed: 23 Expected date: 06/21/22 Expected time: 10:40 AM Means of arrival: Ambulance Comments: [place] [id number] Evaluation note* Subjective & Objective - Serina [...] Psych: calm, cooperative, follows commands, normal affect [id number] History of Present illness Narrative* Serina Meyers [...] Hospital Medications: acetaminophen 1,300 mg Oral Q8H [facility] amLODIPine 10 mg Oral Daily aspirin 81 mg Oral Daily budesonide-formoteroL 2 puff Inhalation BID buPROPion 75 mg Oral Daily cholecalciferol (vitamin D3) 1,000 Units Oral Daily DULoxetine 60 mg Oral Daily gabapentin 100 mg Oral TID heparin (porcine) 5,000 Units Subcutaneous Q8H [facility] lispro insulin 0-15 Units Subcutaneous at bedtime insulin lispro 0-30 Units Subcutaneous TID AC levothyroxine 112 mcg Oral Daily lisinopriL 40 mg Oral Daily pantoprazole 40 mg Oral Daily sodium chloride (PF) 5 mL Intravenous Q8H [facility] tamsulosin 0.4 mg Oral After evening meal [...] recorded. Serina Meyers MD, PGY6 Colorectal Fellow [phone] 04/04/2022 Associated attestation - Jada Vargas MD - 04/04/2022 8:44 AM EDT The pateint was seen and examined by me. Full note per resident. I personally reviewed the following: Laboratory 04/04/22 8:44 AM I agree with the following plan: Ok for dc. Fu in 2-3 weeks. Jada Vargas MD * Kings Sanchez MD - 04/03/2022 2:41 PM EDT [facility] Ruddy -progress note: Patient Name: Radha Shafer MR #: [id number] ASSESSMENT / PLAN: Radha Shafer is a [...] 3. Uterus is surgically absent. Assessmen Kings Sanchez MD [facility] Office: [phone] * Serina Meyers MD - 04/03/2022 8:03 [...] looking forward to following up with Dr. Sanchez. She has minimal pain and isn't taking [...] recorded. Serina Meyers MD, PGY6 Colorectal Fellow [phone] 04/03/2022 Associated attestation - Jada Vargas MD - 04/03/2022 8:55 AM EDT The pateint was seen and examined by me. Full note per resident. I personally reviewed the following: Laboratory 04/03/22 8:54 AM I agree with the following plan: Voiding trial before dc tomorrow Low fiber diet Jada Vargas MD * Grant Archibald DO - 04/03/2022 7:50 AM EDT [facility] PROGRESS NOTE Assessment and Plan Radha Shafer is a 61 y.o. female patient of Jonathan Rutherford CNP with history of CPT2 deficiency, COPD, CKD, type 2 diabetes, hypothyroidism, HTN, FELISA presented on 03/30/2022 with rectal prolapse. [facility] consulted by Jada Vargas,* for management of [...] perspective, continue home medications at prescribed doses. [facility] will sign off, please call with questions. [...] sodium chloride (PF) 5 mL Intravenous Q8H [facility] tamsulosin 0.4 mg Oral After evening meal [...] recorded. Serina Meyers MD, PGY6 Colorectal Fellow [phone] 04/02/2022 Associated attestation - Jada Vargas MD - 04/02/2022 9:30 AM EDT The pateint was seen and examined by me. Full note per resident. I personally reviewed the following: Laboratory 04/02/22 9:30 AM I agree with the following plan: Consult urology D/w [facility] any unresolved medical issues before dc Jada Vargas MD * Grant Archibald, - 04/02/2022 8:37 AM EDT [facility] PROGRESS NOTE Assessment and Plan Radha Shafer is a 61 y.o. female patient of Jonathan Rutherford CNP with history of CPT2 deficiency, COPD, CKD, type 2 diabetes, hypothyroidism, HTN, FELISA presented on 03/30/2022 with rectal prolapse. [facility] consulted by Jada Vargas,* for management of [...] Archibald DO - 04/01/2022 10:18 AM EDT [facility] PROGRESS NOTE Assessment and Plan Radha Shafer is a 61 y.o. female patient of Jonathan Rutherford CNP with history of CPT2 deficiency, COPD, CKD, type 2 diabetes, hypothyroidism, HTN, FELISA presented on 03/30/2022 with rectal prolapse. [facility] consulted by Jada Vargas,* for management of [...] recorded. Serina Meyers MD, PGY6 Colorectal Fellow [phone] 04/01/2022 Associated attestation - Emmett Abdullahi DO - 04/01/2022 10:54 AM EDT [...] Reinsert Diaz for retention C/w liquid diet Emmett Abdullahi DO, FACS, FASCRS * Serina Meyers [...] -admit to SDU post op -home O2 -TREASURY ANALYST for now, discuss DC later today -CLD [...] sodium chloride (PF) 5 mL Intravenous Q8H [facility] tiotropium bromide 2 puff Inhalation Daily Labs [...] recorded. Serina Meyers MD, PGY6 Colorectal Fellow [phone] 03/31/2022 Associated attestation - Jada Vargas MD - 03/31/2022 9:50 AM EDT The pateint was seen and examined by me. Full note per resident. I personally reviewed the following: Laboratory 03/31/22 9:44 AM I agree with the following plan: Clear liquid diet. Consult [facility] for medical management. Await bowel function. Jada Vargas MD documented in this [id number] Miscellaneous Notes* Subjective & Objective - Serina [...] PM EDT RADHA SHAFER [facility] [id number] 1960 DATE 03/30/2022 OPERATIVE REPORT SURGEON JADA VARGAS MD SALES DEVELOPMENT MANAGER SERINA MEYERS MD, RESIDENT PREOPERATIVE DIAGNOSIS Full-thickness [...] This was done circumferentially. We used a [place] retractor for retraction and this was released [...] case. JADA VARGAS MD D 03/30/2022 14:46 [id number] T 03/30/2022 15:08 JMAvni/CECI * Brief Op Note - Serina Meyers MD - 03/30/2022 12:23 PM EDT Brief Post Operative Note Patient Name: Radha Shafer : 1960 (61 y.o.) Date of Service: 03/30/2022 CSN: [id number] Procedure(s): ALTEMEIER PROCEDURE Pre-Operative Diagnoses: * Rectal prolapse [K62.3] Post-Operative Diagnoses: * Rectal prolapse [K62.3] Surgeon(s) and Role: * Jada Vargas MD - [facility] pgy6 Anesthesiologist: Alexandro Rajput MD AUTOMOTIVE FUEL INJECTION SERVICER: Gen Hartmann CRNA Crew Trainer: Janice Vergara RN Crew Trainer Relief: Rosina Licea RN Scrub Person Relief: ST Stella Scrub [...] MD 03/30/2022 2:50 PM documented in this [id number] Consult note* Kings Sanchez MD - 04/02/2022 3:55 PM EDTAssociated Order(s): [...] call with questions or to discuss. 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 Tobacco Use Smoking status: [...] 1,300 mg, 1,300 mg, Oral, Q8H TRACY, DANIEL Duron-John, 1,300 mg at 04/02/22 1430 albuterol inhaler [...] puff, 2 puff, Inhalation, BID, Wendy Mcclure, SowmyaD, 2 puff at 04/02/22 0900 buPROPion (WELLBUTRIN) [...] mL, 18 mL, Oral, 4x daily, Andree Villasenor, [facility],PharmD, 18 mL at 04/02/22 1241 [...] continue flomax Relevant Orders Tissue Exam Kings Sanchez MD [facility] Office: [phone] [id number] Consult note* Kings Sanchez MD - 04/02/2022 3:55 PM EDT Associated Order(s): IP CONSULT TO UROLOGY Images from the original note were not included. [facility] [place] - CONSULT NOTE: Patient Name: Radha Shafer [...] call with questions or to discuss. 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 Tobacco Use Smoking status: [...] 1,300 mg, 1,300 mg, Oral, Q8H TRACY, DANIEL Duron-John, 1,300 mg at 04/02/22 1430 albuterol inhaler 2 puff, 2 puff, Inhalation, Q6H PRN, Tatiana Butt PA-C amLODIPine (NORVASC) tablet 10 mg, 10 mg, Oral, Daily, DANIEL Duron-John, 10 mg at 04/02/22 0812 aspirin chewable tablet 81 mg, 81 mg, Oral, Daily, Tatiana Butt PA-C, 81 mg at 04/02/22 0900 budesonide-formoteroL (SYMBICORT) 80-4.5 mcg/actuation inhaler 2 puff, 2 puff, Inhalation, BID, Wendy Mcclure PharmD, 2 puff at 04/02/22 0900 buPROPion (WELLBUTRIN) tablet 75 mg, 75 mg, Oral, Daily, DANIEL Duron-John, 75 mg at 04/02/22 0812 cholecalciferol (vitamin [...] 18 mL, Oral, 4x daily, Andree Villasenor [facility],PharmD, 18 mL at 04/02/22 1241 [...] continue flomax Relevant Orders Tissue Exam Kings Sanchez MD [facility] Office: [phone] * Grant Archibald, DO - 03/31/2022 7:59 AM EDTAssociated Order(s): IP CONSULT TO HOSPITALIST [facility] CONSULTATION NOTE Patient Name: Radha Shafer : 1960 MR #: [id number] Admit Date: 03/30/2022 Physicians: Jonathan Rutherford CNP (Family); No ref. provider found (Referring) Radha Shafer is a 61 y.o. female patient of Jonathan Rutherford CNP with history of CPT2 deficiency, COPD, CKD, type 2 diabetes, hypothyroidism, HTN, FELISA presented on 03/30/2022 with rectal prolapse. [facility] consulted by Jada Vargas,* for management of [...] TOTAL THYROIDECTOMY; Surgeon: Lopez Alonso MD; Location: [facility]; Service: US ECHO TRANSTHORACIC FOLLOWUP [...] Transcriptions 03/31/22 12:08 PM documented in this [id number] Note* Quick Note - Caitlyn Mishra PA-C - 03/31/2022 6:01 PM EDT Notified by RN of patient unable to void after diaz removal, bladder scan with >500 mL. Order placed for PRN bladder scans with POUR protocol. Continue to monitor. Caitlyn Mishra PA-C Hospital Medicine Service [facility] Work Phone: [phone] Evaluation + Plan note* Assessment & Plan [...] -PRNs for BP -DC flomax -DC today [id number] Consult note* Grant Archibald DO - 03/31/2022 7:59 AM EDTAssociated Order(s): IP CONSULT TO HOSPITALIST [facility] CONSULTATION NOTE Patient Name: Radha Shfaer : 1960 MR #: [id number] Admit Date: 03/30/2022 Physicians: Jonathan Rutherford CNP (Family); No ref. provider found (Referring) Radha Shafer is a 61 y.o. female patient of Jonathan Rutherford CNP with history of CPT2 deficiency, COPD, CKD, type 2 diabetes, hypothyroidism, HTN, FELISA presented on 03/30/2022 with rectal prolapse. [facility] consulted by Jada Vargas,* for management of [...] Procedure: COLONOSCOPY; Surgeon: Jada Vargas MD; Location: [facility]; Service: Colorectal GALLBLADDER HYSTERECTOMY JOINT REPLACEMENT Left knee ORTHOPEDIC SURGERY r wrist surgery, left ankle, right rotator cuff ROTATOR CUFF REPAIR Right THYROIDECTOMY N/A 07/15/2015 Procedure: TOTAL THYROIDECTOMY; Surgeon: Lopez Alonso MD; Location: [facility]; Service: US ECHO TRANSTHORACIC FOLLOWUP [...] 03/31/22 12:08 PM Transcriptions 03/31/22 12:08 PM [id number] Note* Quick Note - Delonte Roa RN - 03/30/2022 10:[address] Meyers of colorectal to notify her of patient's elevated BP and patient complaint ofchest pain. Patient sates that chest pain has been going on past few days. This RN obtained an EKG which showed NSR. Physician ordered labetalol and troponin. [id number] Note* Op Note - Jada Vargas MD - 03/30/2022 3:13 PM EDT HOLLIS RADHA L [facility] [id number] 1960 DATE 03/30/2022 OPERATIVE REPORT SURGEON JADA VARGAS MD SALES DEVELOPMENT MANAGER SERINA MEYERS MD, RESIDENT PREOPERATIVE DIAGNOSIS Full-thickness [...] This was done circumferentially. We used a [place] retractor for retraction and this was released [...] case. JADA VARGAS MD D 03/30/2022 14:46 [id number] T 03/30/2022 15:08 JMAvni/SHILOHL [id number] Note* Brief Op Note - Serina Meyers MD - 03/30/2022 12:23 PM EDT Brief Post Operative Note Patient Name: Radha Shafer : 1960 (61 y.o.) Date of Service: 03/30/2022 CSN: [id number] Procedure(s): ALTEMEIER PROCEDURE Pre-Operative Diagnoses: * Rectal prolapse [K62.3] Post-Operative Diagnoses: * Rectal prolapse [K62.3] Surgeon(s) and Role: * Jada Vargas MD - [facility] Anesthesiologist: Alexandro Rajput MD AUTOMOTIVE FUEL INJECTION SERVICER: Gen Hartmann CRNA Crew Trainer: Janice Vergara RN Crew Trainer Relief: Rosina Licea RN Scrub Person Relief: ST Stella Scrub [...] * Serina Meyers MD 03/30/2022 2:50 PM [id number] Hospital course Narrative* Serina Meyers MD - 03/30/2022 12:23 PM EDT Images from the original note were not included. DISCHARGE SUMMARY Patient: Radha Shafer Date of : 1960 Site: [facility] Family Provider: Jonathan Rutherford CNP [...] Trelegy Ellipta 200-62.5-25 mcg Dsdv Generic drug: qbcruvdmpvl-pohrmumqo-efcvleoc What changed: Another medication with the same [...] Physician(s) Family Provider: Jonathan Rutherford CNP, Address: [address] [place] [address] Follow Up: No follow-up provider specified. Additional [...] 04/04/2022 8:45 AM EDT Ok for dc. [place] in 2-3 weeks. documented in this [id number] Attending History and physical note* Jada Vargas MD - 03/30/2022 11:13 AM EDT INTERVAL HISTORY AND PHYSICAL Patient Name: Radha Shafer Admit Date: 5241208 MR #: [id number] : 1960 The H&P has been reviewed and the patient has been examined. I concur with the findings of the H&P. There are no significant changes. It is appropriate to proceed with the planned procedure. Jada Vargas MD 03/30/2022 11:13 AM Source Note - Jada Vargas MD - 03/25/2022 1:52 PM EDT [id number] History and physical note* Jada Vargas MD - 03/30/2022 11:13 AM EDT INTERVAL HISTORY AND PHYSICAL Patient Name: Radha Shafer Admit Date: 5241208 MR #: [id number] : 1960 The H&P has been reviewed and the patient has been examined. I concur with the findings of the H&P. There are no significant changes. It is appropriate to proceed with the planned procedure. Jada Vargas MD 03/30/2022 11:13 AM Source Note - Jada Vargas MD - 03/25/2022 1:52 PM EDT documented in this [id number] Nurse Surgical operation note* Stacy Alexander RN - 03/29/2022 11:24 AM EDT PT DENIES IMPLANTS [facility] Surgical Department Patient Instructions for [facility]: Prior to surgery: Please bathe the [...] if desired. When you arrive at the [facility] on the day of your surgery, please note that hydrogenation operator parking is free. Pull up to the [...] to view our online educational program in [place]? It is very helpful to watch this as it can help you understand your surgery preparation process here at [facility]. It will provide you with [...] when being transported by a [employer] Tax[employer] [id number] Nurse Note* Stacy Alexander RN - 03/29/2022 11:24 AM EDT PT DENIES IMPLANTS [facility] Surgical Department Patient Instructions for [facility]: Prior to surgery: Please bathe the [...] if desired. When you arrive at the [facility] on the day of your surgery, please note that hydrogenation operator parking is free. Pull up to the [...] to view our online educational program in [place]? It is very helpful to watch this as it can help you understand your surgery preparation process here at [facility]. It will provide you with [...] Jonathan Rutherford CNP to be faxed to [phone]. * Elo Venegas RN - 03/28/2022 7:58 [...] cardiac clearance and labs be faxed to [phone] when completed. * Elo Venegas RN - 03/24/2022 1:45 PM EDT Secure chat message to Darlin at Dr. Vargas's office requesting orders and consent. documented in this [id number] Nurse Surgical operation note* Elo Venegas RN - 03/29/2022 8:[address] Carter who is third call today to discuss patient's chart and cardiac results. Dr. Carter reviewed patient's chart and agreed with cardiology and stated it is ok to proceed with surgery. [id number] Nurse Surgical operation note* Elo Venegas RN - 03/29/2022 8:10 AM EDT Called patient's PCP office and requested updated not from Jonathan Rutherford CNP to be faxed to [phone]. [id number] History of Present illness Narrative* Jyoti Reeves - 03/28/2022 4:15 PM EDT Pt notified cardiac clearance in chart. documented in this [id number] Nurse Surgical operation note* Elo Venegas RN - 03/28/2022 7:58 AM EDT Secure chat message to Sindhu at Dr. Vargas's office requesting orders and consent. [id number] Nurse Surgical operation note* Elo Venegas RN - 03/25/2022 12:32 PM EDT Secure chat message to Sindhu at Dr. Vargas's office inquiring about how Dr. Vargas would like to proceed since at this current time patient is not cleared for surgery from PCP or from cardiology. Also requested orders and consent to be faxed over. [id number] Nurse Surgical operation note* Elo Venegas RN - 03/24/2022 1:50 PM EDT Called patient's PCP office and requested PAT paperwork, cardiac clearance and labs be faxed to [phone] when completed. [id number] Nurse Surgical operation note* Elo Venegas RN - 03/24/2022 1:45 PM EDT Secure chat message to Darlin at Dr. Vargas's office requesting orders and consent. [id number] History of Present illness Narrative* Jyoti Reeves - 03/21/2022 2:39 PM EDT Pt needs stress test and cardiology consult before surgery. Jason Grullon at Jonathan Rutherford CNP office. She will put referrals in today with note to expedite due to surgery date 03/30. * Jyoti Reeves - 03/21/2022 1:52 PM EDT Faxed ekg to Jonathan Rutherford CNP. documented in this [id number] History of Present illness Narrative* Jyoti Reeves - 03/21/2022 1:52 PM EDT Faxed ekg to Jonathan Rutherford CNP. documented in this [id number] History of Present illness Narrative* Jada Vargas [...] urinating All questions answered. documented in this [id number] History of Present illness Narrative* America Stone MA - 01/07/2022 9:56 AM EST Pt [place] [facility] [place] [facility] [place] @11:30am H/o polyps documented in this [id number] Note* Addendum Note - Bety Hanson LPN - 12/30/2021 12:01 PM ESTAddended by: BETY HANSON on: 12/30/2021 12:01 PM Modules accepted: Orders [id number] Note* Addendum Note - Bety Hanson LPN - 12/30/2021 12:01 PM ESTAddended by: BETY HANSON on: 12/30/2021 12:01 PM Modules accepted: Orders [id number] Note* Addendum Note - Bety Hanson LPN - 12/30/2021 12:01 PM ESTAddended by: BETY HANSON on: 12/30/2021 12:01 PM Modules accepted: Orders [id number] Miscellaneous Notes* Addendum Note - Bety Hanson LPN - 12/30/2021 12:01 PM ESTAddended by: BETY HANSON on: 12/30/2021 12:01 PM Modules accepted: Orders documented in this [id number] History of Present illness Narrative* Estrada Garcia MD - 12/30/2021 11:00 AM EST [facility] [address] [facility] [address] [place] [id number] Name: Radha Shafer Age: 61 y.o. 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 [...] to episodic myopathy. She is treated at [facility]. 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 - ipratropium-albuteroL (DUO-NEB) 0.5-2.5 mg/3 ml nebulizer; Take 3 mL by nebulization 3 (three) times a day as needed for wheezing or shortness of breath . - Home Oxygen Concentrator with Portability Nasal cannula; 2 LPM; Continuous and/or During Exertion; [facility] Ms. Shafer is a 61 year [...] months Estrada Garcia MD documented in this [id number] History of Present illness Narrative* Chepe Yin CNP - 08/04/2021 2:00 PM EDT ENT New Patient Visit Patient Name: Radha Shafer MR #: [id number] : 1960 Physicians: Jonathan Rutherford CNP (Family); [...] TOTAL THYROIDECTOMY; Surgeon: Lopez Alonso MD; Location: 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 Mouth/Throat: Lips: Hoyt. No lesions. Mouth: No lacerations or oral [...] Chepe Yin CNP 08/04/21 documented in this [id number] NoteTherapy Diagnosis Assessed Cervical radiculopathy, acute (723.4) [...] secs on/20 off with lbs as tolerated. 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 [id number] Emergency department Note * Georgie Vázquez MD - 04/14/2021 3:56 PM EDT [facility] ED Attending Note: NAME: Radha Shafer 60 y.o. CSN: [id number] PCP: Jonathan Rutherford CNP History: Chief Complaint: [...] managed for this by Dr. Salinas at [facility]. 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 MYOGLOBIN, URINE No orders to display Procedures: Procedures ED Course / Medical Decision Making: Work-up of the patient has an elevated CPK of 1900 and elevated creatinine of 1.7, up from her previous creatinine 3 months ago of 1.4. Case is discussed with Dr. Gonzalez, professor of architecture on-call for thepatient's own physician Dr. Salinas. [...] for repeat CPK and chemistry at the [facility] lab system here. The patient understands to get a blood test obtained and to call Dr. Salinas's office to set up a follow-up appointment. She also agrees to call their office if she gets worse, at their suggestion, or return to the emergency department. . Clinical Impression: 1. Inborn error of metabolism Disposition: Patient is being discharged to home Georgie Vázquez MD [facility] Emergency Department (Please note that portions of this note have been completed with a voice recognition software. 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 * Zamzam Fink - 04/14/2021 2:58 PM EDT Bed: 25 Expected date: Expected time: Means of arrival: Comments: Triage PT documented in this [id number] Hospital Discharge instructions * Instructions* Georgie Vázquez MD - 04/14/2021 Continue to drink lots of water as you have been. Follow-up with Dr. Salinas. Return or call Dr. Salinas if you get worse. * Attachments The following attachments cannot be sent through Care Everywhere. * Cramp: Muscle (Mauritanian) documented in this [id number] History of Present illness Narrative* At this [...] location [facility] Diagnosis Rectal [facility]apse- Primary [facility]* Diagnosis Acute renal failure superimposed on chronic kidney disease, unspecified CKD stage, unspecified acute renal failure type (HCC) Diarrhea, unspecified type Hyperkalemia Hyperpotassemia Chronic obstructive pulmonary disease, unspecified COPD type (HCC) Rectal bleeding Hemorrhage of rectum and anus Rectal prolapse Surgery follow-up Pain Generalized pain Non-traumatic rhabdomyolysis Chronic obstructive pulmonary disease with acute exacerbation (HCC) 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 KRISTIN (acute kidney injury) (HCC) CKD (chronic kidney disease) stage 3, GFR 30-59 ml/min (HCC) Chronic kidney disease, Stage III (moderate) [facility] Diagnosis COPD exacerbation (HCC)- Primary Obstructive chronic bronchitis with exacerbation Screening for lung cancer [facility] Diagnosis Pain of upper abdomen- Primary Nausea Nausea alone Diarrhea, unspecified type Pain of upper abdomen Nausea Nausea alone Pain of upper abdomen Nausea Nausea alone [facility] Diagnosis Onset Date Resolution Status Carnitine palmitoyltransferase II deficiency chronic Insomnia chronic Low back pain chronic Neck pain chronic Peripheral arterial disease chronic Polyneuropathy chronic [facility] Work Phone: Evaluation note* Diagnosis Onset Date [...] ctive COPD (chronic obstructive pulmonary disease) noneactive [facility] Work Phone: Evaluation note* Diagnosis Onset Date [...] ctive COPD (chronic obstructive pulmonary disease) noneactive 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 [facility] Diagnosis Onset Date Resolution Status Cervical radiculopathy acute Fatigue acute Insomnia chronic Low back pain chronic Neck pain chronic Peripheral arterial disease chronic Polyneuropathy chronic Chronic bronchitis chronic Hypoxia chronic FELISA (obstructive sleep apnea) chronic Smoking greater than 30 pack years chronic Coronary artery disease modeling manager teofilo Essential hypertension chron ic FELISA (obstructive sleep apnea) chronic Palpitations chronic Syncope chronic 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 Work Phone: Evaluation note* Diagnosis Onset Date [...] abdominal pain nonea ctive Post-operative hypothyroidism noneactive [facility] Work Phone: Evaluation note* Diagnosis Coronary artery disease, angina presence unspecified, unspecified vessel or lesion type, unspecified whether chitimacha or transplanted heart Cardiomyopathy, unspecified type ([facility]) Sleep apnea, unspecified type Chronic obstructive pulmonary disease, unspecified COPD type ([facility]) Hypertension, unspecified type Abnormal electrocardiogram Nonspecific abnormal electrocardiogram (ECG) (EKG) Chest pain, unspecified type 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[facility]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 Rectal prolapse- Primary Chest pain- Primary Unspecified chest pain Stable angina (HCC) Other and unspecified angina pectoris Pain of upper abdomen Pain- Primary Generalized pain documented in [facility]* Diagnosis Coronary artery disease, angina presence unspecified, unspecified vessel or lesion type, unspecified whether chitimacha or transplanted heart Cardiomyopathy, unspecified type (HCC) Sleep apnea, unspecified type Chronic obstructive pulmonary disease, unspecified COPD type (HCC) Hypertension, unspecified type Abnormal electrocardiogram Nonspecific abnormal electrocardiogram (ECG) (EKG) Chest pain, unspecified type 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[facility]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 Rectal prolapse- Primary Chest pain- Primary Unspecified chest pain Stable angina (HCC) Other and unspecified angina pectoris Pain of upper abdomen Acute hypercapnic respiratory failure (HCC)- Primary Respiratory failure, unspecified chronicity, unspecified whether with hypoxia or hypercapnia ([facility]) COPD exacerbation ([facility]) Obstructive chronic bronchitis with exacerbation Cellulitis of left knee documented in this encounter [facility]* Diagnosis Coronary artery disease, angina presence unspecified, unspecified vessel or lesion type, unspecified whether chitimacha or transplanted heart Cardiomyopathy, unspecified type ([facility]) Sleep apnea, unspecified type Chronic obstructive pulmonary disease, unspecified COPD type ([facility]) Hypertension, unspecified type Abnormal electrocardiogram Nonspecific abnormal electrocardiogram (ECG) (EKG) Chest pain, unspecified type 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[facility]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 Rectal prolapse- Primary Chest pain- Primary Unspecified chest pain Stable angina (HCC) Other and unspecified angina pectoris Pain of upper abdomen NSVT (nonsustained ventricular tachycardia) ([facility])- Primary documented in this encounter [facility] note* Diagnosis Coronary artery disease, angina presence unspecified, unspecified vessel or lesion type, unspecified whether chitimacha or transplanted heart Cardiomyopathy, unspecified type (HCC) Sleep apnea, unspecified type Chronic obstructive pulmonary disease, unspecified COPD type (HCC) Hypertension, unspecified type Abnormal electrocardiogram Nonspecific abnormal electrocardiogram (ECG) (EKG) Chest pain, unspecified type 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[facility]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 Rectal prolapse- Primary Chest pain- Primary Unspecified chest pain Stable angina (HCC) Other and unspecified angina pectoris Pain of upper abdomen Ventricular tachycardia (HCC) Paroxysmal ventricular tachycardia Palpitations NSVT (nonsustained ventricular tachycardia) ([facility]) documented in this encounter [facility] note* Diagnosis Coronary artery disease, angina presence unspecified, unspecified vessel or lesion type, unspecified whether chitimacha or transplanted heart Cardiomyopathy, unspecified type (HCC) [...] III (moderate) KRISTIN (acute kidney injury) ([facility]) Non-traumatic rhabdomyolysis Diarrhea, unspecified type Rectal prolapse [...] joint, unspecified laterality [facility]* Diagnosis Coronary artery disease, angina presence unspecified, unspecified vessel or lesion type, unspecified whether chitimacha or transplanted heart Cardiomyopathy, unspecified type (HCC) [...] ventricular tachycardia Palpitations NSVT (nonsustained ventricular tachycardia) ([facility]) [facility]* Diagnosis Coronary artery disease, angina presence unspecified, unspecified vessel or lesion type, unspecified whether chitimacha or transplanted heart Cardiomyopathy, unspecified type (HCC) [...] unspecified whether with hypoxia or hypercapnia (HCC) Acute on chronic congestive heart failure, unspecified heart failure type ([facility]) SIRS (systemic inflammatory response syndrome) (HCC) Systemic inflammatory response syndrome, unspecified Pneumonia Pneumonia, organism unspecified CKD (chronic kidney disease) Chronic kidney disease, unspecified Acute exacerbation of chronic obstructive pulmonary disease (COPD) (HCC) Obstructive chronic bronchitis with exacerbation Elevated CPK Other nonspecific abnormal serum enzyme levels 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[facility]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 Myalgia Unspecified myalgia and myositis COPD exacerbation ([facility]) Obstructive chronic bronchitis with exacerbation [facility]* Diagnosis Coronary artery disease, angina presence unspecified, unspecified vessel or lesion type, unspecified whether chitimacha or transplanted heart Cardiomyopathy, unspecified type ([facility]) Sleep apnea, unspecified type Chronic obstructive pulmonary disease, unspecified COPD type ([facility]) Hypertension, unspecified type Abnormal electrocardiogram Nonspecific abnormal electrocardiogram (ECG) (EKG) Chest pain, unspecified type 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[facility]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 Rectal prolapse- Primary Chest pain- Primary Unspecified chest pain Stable angina (HCC) Other and unspecified angina pectoris Pain of upper abdomen NSVT (nonsustained ventricular tachycardia) ([facility]) [facility]* Diagnosis CPT2 deficiency- Primary Disorders of fatty acid oxidation [facility] N[facility]* (Pt. states [...] sent through Care Everywhere. * High-Fiber Diet (Mauritanian) [facility] Dis[facility] instructions[facility] Instructions Date [facility] Dis[facility]: [facility]20/25[facility]: Rewljf for referral (narrative)No reason for referral information availableWVeterans Health Administration Work Phone: reason for visit Narrative* Auth/Cert Specialty Diagnoses / Procedures Referred By Contac t Referred To Contact Diagnoses Rectal prolapse Rectal prolapse [K62.3] Procedures MI EXCIS RECTAL PROLAPSE,PERINEAL Jada Vargas MD [address] [facility] [address] [place] [address] Referral ID Status Reason Start Date Expiration Date Visits Re quested Visits Authorized [id number] 03/07/2022 1 1 [facility] Assessments Diagnosis Surgery follow-up - Primary Diagnosis Coronary artery disease, angina presence unspecified, unspecified vessel or lesion type, unspecified whether chitimacha or transplanted heart Cardiomyopathy, unspecified type ([facility]) Sleep apnea, unspecified type Chronic obstructive pulmonary disease, unspecified COPD type (HCC) Hypertension, unspecified type Abnormal electrocardiogram Nonspecific abnormal electrocardiogram (ECG) (EKG) Chest pain, unspecified type 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[facility]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 Diagnosis Cervical [...] Documents on File Type Date Recorded Patient Associate Professor Of Education Expl anation Advance Directives and Living Will Latest Code Status on File Code Status Date Activated Date Inactivated Comments Full Code 07/15/2015 4:39 PM 07/16/2015 5:24 PM Documents on File Type Date Recorded Patient Associate Professor Of Education Expl anation Advance Directives and Livin g Will 04/10/2019 12:40 PM Documents on File Type Date Recorded Patient Associate Professor Of Education Expl anation Advance Directives and Livin g Will 05/07/2019 2:35 PM Documents on File Type Date Recorded Patient Associate Professor Of Education Expl anation Advance Directives and Livin g Will 05/15/2020 12:00 AM Documents on File Type Date Recorded Patient Associate Professor Of Education Expl anation Advance Directives and Livin g Will 09/15/2020 12:00 AM Latest Code Status on File Code Status Date Activated Date Inactivated Comments Full Code 07/15/2015 4:39 PM 07/16/2015 5:24 PM Documents on File Type Date Recorded Patient Associate Professor Of Education Expl anation Advance Directives and Livin g Will 11/02/2020 1:59 PM Documents on File Type Date Recorded Patient Associate Professor Of Education Expl anation Advance Directives and Livin g Will 11/09/2020 12:00 AM Documents on File Type Date Recorded Patient Associate Professor Of Education Expl anation Advance Directives and Livin g Will 11/09/2020 12:00 AM Documents on File Type Date Recorded Patient Associate Professor Of Education Expl anation Advance Directives and Livin g Will 05/07/2019 2:35 PM Documents on File Type Date Recorded Patient Associate Professor Of Education Expl anation Advance Directives and Livin g Will 04/14/2021 3:22 PM Documents on File Type Date Recorded Patient Associate Professor Of Education Expl anation Advance Directives and Livin g Will 05/30/2021 8:35 PM Documents on File Type Date Recorded Patient Associate Professor Of Education Expl anation Advance Directives and Livin g Will 05/30/2021 8:35 PM Documents on File Type Date Recorded Patient Associate Professor Of Education Expl anation Advance Directives and Livin g Will 12/29/2021 3:40 PM Documents on File Type Date Recorded Patient Associate Professor Of Education Expl anation Advance Directives and Livin g Will 12/29/2021 3:40 PM Documents on File Type Date Recorded Patient Associate Professor Of Education Expl anation Advance Directives and Livin g Will 02/25/2022 3:40 PM Documents on File Type Date Recorded Patient Associate Professor Of Education Expl anation Advance Directives and Livin g Will 03/04/2022 3:00 PM Documents on File Type Date Recorded Patient Associate Professor Of Education Expl anation Advance Directives and Livin g [...] Do you have a Healthcare Power of Icer Machine? No June 12, 2024 9:25pm Living Will No January 01 5:37pm Do you have a Healthcare Power of Icer Machine? No January 01, 2025 5:37pm Date Activated [...] Do you have a Healthcare Power of Icer Machine? No June 12, 2024 9:25pm Advance Directive Response Recorded Date/ Time Living Will No June 12, 2024 9:25pm Do you have a Healthcare Power of Icer Machine? No June 12, 2024 9:25pm Do you have a Healthcare Power of Icer Machine? No July 17, 2025 7:12pm Advance Directive Response Recorded Date/ Time Living Will No June 12, 2024 9:25pm Do you have a Healthcare Power of Icer Machine? No June 12, 2024 9:25pm Do you have a Healthcare Power of Icer Machine? No July 17, 2025 11:58pm Reason for Referral Status Reason Specialty Diagnoses / Procedures Referred By Contact Referred To Contact Pending Review Cardiology Diagnoses Abnormal electrocardiogram Cardiomyopathy, unspecified type (HCC) Hypertension, unspecified type Procedures Echocardiogram complete Whitley Martinez MD [address] [place] [address] Status Reason Specialty Diagnoses / Procedures Referre d By Contact Referred To Contact Closed Diagnoses Myopathy Procedures MRI LONG BONE NEUROGRAPHY LOWER EXTREMITY LEFT Brittany Rushing MD [address] [place] [address] Status Reason Specialty Diagnoses / Procedures Referre d By Contact Referred To Contact Closed Diagnoses Osteoarthritis of spine with radiculopathy, lumbar region Procedures MRI SPINE LUMBAR WITHOUT CONTRAST Brittany Rushing MD [address] [place] [address] Status Reason Specialty Diagnoses / Procedures Referre d By Contact Referred To Contact Closed Diagnoses Cervical spine disease Procedures MRI SPINE CERVICAL WITHOUT CONTRAST Brittany Rushing MD [address] [place] [address] Status Reason Specialty Diagnoses / Procedures Referre d By Contact Referred To Contact Closed Radiology Diagnoses Right hip pain Procedures MR Hip Right Without Contrast Rusty Dozier MD [address] [place] [address] Status Reason Specialty Diagnoses / Procedures Referre d By Contact Referred To Contact Closed Cardiology Diagnoses Abnormal electrocardiogram Cardiomyopathy, unspecified type (HCC) Hypertension, unspecified type Procedures Echocardiogram complete Whitley Martinez MD [address] [place] [address] Status Reason Specialty Diagnoses / Procedures Referre d By Contact Referred To Contact Closed Cardiology Diagnoses Claudication of lower extremity (HCC) Procedures Ultrasound ankle / brachial indices extremity complete Elana Pena, DO [address] [place] [address] Specialty Diagnoses / Procedures Referred By Contac t Referred To Contact Otolaryngology Diagnoses Dizzy Jonathan RutherfordDonna, SQL DATA ANALYST [address] [place] [address] Alan Saba MD [address] [facility] Destiny [address] [place] [address] Referral ID Status Reason Start Date Expiration Date V isits Requested Visits Authorized [id number] Pending Review 07/22/2021 07/22/2022 1 1 Specialty Diagnoses / Procedures Referred By Contac t Referred To Contact General Surgery Diagnoses Rectal prolapse Jonathan Rutherford Monica, SQL DATA ANALYST [address] [phone] Jada Vargas MD [address] [address] Referral ID Status Reason Start Date Expiration Date V isits Requested Visits Authorized [id number] Pending Review 07/29/2021 07/29/2022 1 1 Specialty Diagnoses / Procedures Referred By Contac t Referred To Contact Radiology Diagnoses Screening for lung cancer Chronic obstructive pulmonary disease, unspecified COPD type (HCC) Procedures CT Lung Cancer Screening Estrada Garcia MD [address] [address] Referral ID Status Reason Start Date Expiration Date V isits Requested Visits Authorized [id number] New Request 12/30/2021 12/30/2022 1 1 Specialty Diagnoses / Procedures Referred By Contac t Referred To Contact Cardiology Diagnoses Rectal prolapse Preoperative testing Procedures ECG 12 Lead Jada Vargas MD [address] [address] [place] [address] Referral ID Status Reason Start Date Expiration Date V isits Requested Visits Authorized [id number] Authorized 03/08/2022 03/08/2023 1 1 Specialty Diagnoses / Procedures Referred By Jacob mccauley Referred To Contact Radiology Diagnoses Screening for lung cancer Personal history of nicotine dependence Procedures CT Lung Cancer Screening Estrada Garcia MD [facility] Vini Fraser [address] [address] Referral ID Status Reason Start Date Expiration Date V isits Requested Visits Authorized [id number] New Request 01/05/2023 01/05/2024 1 1 Instructions * Patient Instructions* Hayley Glez RN - 04/05/2019 2:23 PM EDT .How to contact your Care Team: Provider: Whitley Martinez MD [facility] Nurse: Hayley Glez RN In case of an emergency please call 911. REFILLS: When in need for refills please call your care team or the office at [phone]. Please include medication name, pharmacy name, and specify 30-day or 90-day supply. Please check with your pharmacy within 24 hours of request for your refill. You must follow up as directed to continue current refills. Thank you! 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 The patient does note anterior [...] TOTAL THYROIDECTOMY; Surgeon: Lopez Alonso MD; Location: [facility]; Service: US ECHO TRANSTHORACIC FOLLOWUP [...] Disease) (Hcc) Hypertension Chest Pain Cpt2 Deficiency (Hcc) Objective: Physical Exam Constitutional: She is oriented [...] MD Authorized by: Rivas Jules MD CPT 41979 - Large Joint Arthrocentesis: Consent given by: [...] 09/15/2020 3:04 PM EST [facility] [address] (11) [facility] [address] [facility] [id number] Radha Shafer is a 60 y.o. female [...] MD - 11/24/2020 9:43 AM EST [facility] - Neurology [address] 2nd floor [place], [place] [id number] Nerve Conduction & EMG Report Patient: Radha [...] Neurophysiology, Neurology, Vascular Neurology and Sleep Medicine [facility] [place] [phone] Nota bene: Portions of this chart was created using [employer] voice recognition software. Occasional wrong-word or sound-like [...] Normal Normal documented in this encounter* Flori Rodrigues, [facility] - 11/09/2020 10:30 AM EST Associated Order(s): LG Jt Injection/Arthrocentesis: R knee Post-Procedure Diagnose(s): Primary osteoarthritis of right knee LG Jt Injection/Arthrocentesis: R knee Performed by: Flori Rodrigues CNP Authorized by: Flori Rodrigues CNP CPT 13439 - Large Joint Arthrocentesis: Consent given by: [...] is evaluated as a acute pain since Konstantin, no injury. 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 CARE, PT NEEDS NPP CERVICAL RAD [...] COPD (chronic obstructive pulmonary disease) Chief Complaint FACTORY REPRESENTATIVE, EST. CARE, PT NE EDS NPP CERVICAL [...] 10:51pm Secondary rhabdomyolysis July 17, 2025 10:51pm Chief Complaint Admit Date FOLLOW UP / [...] STOP BANG 6 July 11, 2025 8:16pm CPT-2 FLARE WITH MYALGIAS & GENERALIZED July 17, 2025 11:28pm CPT-2 FLARE WITH MYALGIAS & GENERALIZED July 18, 2025 2:01pm CPT-2 FLARE WITH MYALGIAS & GENERALIZED July 19, 2025 12:08pm CPT-2 FLARE WITH MYALGIAS & GENERALIZED July 20, 2025 9:07am Reason for Visit Admit Date Low back [...] palmitoyltransferase II defici ency July 17, 2025 11:28pm Elevated CPK July 17, 2025 11:28pm Generalized weakness July 17 11:28pm Myalgia July 17, 2025 11:28pm Obesity (BMI 30-39.9) July 17 11:28pm Secondary rhabdomyolysis July 17, 2025 11:28pm Chief Complaint Admit Date 6 M FU 2025 1:12 pm Nicotine [...] STOP BANG 6 July 11, 2025 8:16pm CPT-2 FLARE WITH MYALGIAS & GENERALIZED July 17, 2025 11:28pm CPT-2 FLARE WITH MYALGIAS & GENERALIZED July 18, 2025 2:01pm CPT-2 FLARE WITH MYALGIAS & GENERALIZED July 19, 2025 12:08pm CPT-2 FLARE WITH MYALGIAS & GENERALIZED July 20, 2025 9:07am Reason for Visit Admit Date Prediabetes 2025 1:12 pm FELISA (obstructive sleep apnea) 2025 1:12pm Carnitine palmitoyltransferase II defici ency 2025 1:12pm Stage 3b chronic kidney disease [...] 2:44pm Anemia June 26, 2025 1: 54pm Obesity (BMI 30-39.9) July 17 11:28pm Elevated CPK July 17, 2025 11:28pm Myalgia July 17, 2025 11:28pm Secondary rhabdomyolysis July 17, 2025 11:28pm Carnitine palmitoyltransferase II defici ency July 17, 2025 11:28pm Generalized weakness July 17 11:28pm Additional Source Comments INFORMATION SOURCE (unrecogn ized section and content) DATE CREATED AUTHOR 05/01/2018 [facility] DATE CREATED AUTHOR AUTHOR'S ORGANIZ ATION 07/04/2018 [facility] DATE CREATED AUTHOR AUTHOR'S ORGANIZ ATION 01/29/2019 [facility] DATE CREATED AUTHOR AUTHOR'S ORGANIZ ATION 02/16/2019 [facility] DATE CREATED AUTHOR AUTHOR'S ORGANIZ ATION 07/25/2019 [facility] [place] [facility] DATE CREATED AUTHOR AUTHOR'S ORGANIZ ATION 04/25/2021 [employer] DATE CREATED AUTHOR AUTHOR'S ORGANIZ ATION 07/09/2021 [facility] DATE CREATED AUTHOR AUTHOR'S ORGANIZ ATION 05/01/2025 [facility] DATE CREATED AUTHOR AUTHOR'S ORGANIZ ATION 07/26/2025 [facility] DATE CREATED AUTHOR AUTHOR'S ORGANIZ ATION 08/18/2025 [facility] DATE CREATED AUTHOR AUTHOR'S ORGANIZ ATION 09/07/2025 [facility] DATE CREATED AUTHOR AUTHOR'S ORGANIZ ATION 09/13/2025 [facility] Reason for Visit (unrecogniz ed section [...] unspecified vessel or lesion type, unspecified whether chitimacha or transplanted heart Cardiomyopathy, unspecified type (HCC) Oscar Vinson MD [facility] [place] [address] [facility] [address] [facility] [place] [address] Reason Comments Results Status Reason Specialty Diagnoses / Procedures Referre d By Contact Referred To Contact Status Reason Specialty Diagnoses / Procedures Referre d By Contact Referred To Contact Closed Cardiology Diagnoses Abnormal electrocardiogram Cardiomyopathy, unspecified type (HCC) Hypertension, unspecified type Procedures Echocardiogram complete Whitley Martinez MD [address] [place] [address] Status Reason Specialty Diagnoses / Procedures Referre d By Contact Referred To Contact Closed Cardiology Diagnoses Claudication of lower extremity (HCC) Procedures Ultrasound ankle / brachial indices extremity complete Elana Pena, DO [address] [place] [address] Reason Comments Pain Status Reason Specialty Diagnoses / Procedures Referred By Contact Referred To Contact Closed Orthopedic Surgery Diagnoses Chronic right shoulder pain Jonathan Rutherford, SQL DATA ANALYST [address] [place] [address] Rivas Jules MD [address] [place] [address] Reason Comments Joint Swelling Status Reason Specialty Diagnoses / Procedures Referred By Contact Referred To Contact Pending Review Specialty Services Required/Patien t's Best Interest Neurology Diagnoses Polyneuropathy Rusty Dozier MD [address] [place] [address] Eugenia Conte MD [address] [address] Reason Comments Leg Pain R leg pain [...] t Referred To Contact Otolaryngology Diagnoses Dizzy Alexandre Jonathan Monica, SQL DATA ANALYST [address] [place] [address] Alan Saba MD [address] [place] [address] Referral ID Status Reason Start Date Expiration Date V isits Requested Visits Authorized [id number] Pending Review 07/22/2021 07/22/2022 1 1 Reason Comments Consult Pre-op Reason Onset Date Comments Medication Refill 01/07/2022 Reason Comments Rectal Prolapse Discuss surgery Reason Comments Rectal Bleeding Specialty Diagnoses / Procedures Referred By Contac t Referred To Contact Diagnoses Diarrhea Referral ID Status Reason Start Date Expiration Date Visits Re quested Visits Authorized [id number] 1 1 Reason Comments Follow-up Reason Onset [...] Expiration Date Visits Re quested Visits Authorized [id number] 1 1 Reason Comments Initial Visit (Intake) VT/Palpitations/ Flavia Specialty Diagnoses / Procedures Referred By Contac t Referred To Contact Cardiology Diagnoses Ventricular tachycardia (HCC) Palpitations Flavia Shine MD [address] [place] [address] Phone: tel:[phone] fax: [facility] [address], 3rd [place] [address] Phone: tel: fax: Referral ID Status Reason Start Date Expiration Date V isits Requested Visits Authorized [id number] Pending Review 08/14/2024 08/14/2025 1 1 Specialty Diagnoses / Procedures Referred By Jacob mccauley Referred To Contact Diagnoses COPD exacerbation (HCC) Acute hypoxic respiratory failure (HCC) Referral ID Status Reason Start Date Expiration Date Visits Re quested Visits Authorized [id number] 1 1 Reason Onset Date Comments Medication Prior Authorization (General) 024 Dojolvi Reason Onset Date Comments Refill Request 02/05/2025 Doljovi Reason Comments Shortness of Breath Specialty Diagnoses / Procedures Referred By Jacob mccauley Referred To Contact Diagnoses SOB (shortness of breath) Referral ID Status Reason Start Date Expiration Date Visits Re quested Visits Authorized [id number] 1 1 Reason Comments Follow-up 4 mo NSVT Cardiac MR I Reason Onset Date Comments Illness 03/05/2025 Reason Onset Date Comments Follow Up (Medical) 06/17/2025 Reason Comments Follow Up (Medical) Assessment & Plan Note - Whitley Martinez [...] secti on and content) ED PROVIDER NOTE [facility] NAME: Radha Shafer AGE: 60 y.o. 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 Jonathan Rutherford CNP. Specialty: Nurse Practitioner [address] [facility] [address] 2. Rivas Jules MD. Specialty: Orthopedic Surgery [address] [place] [address] Contact information for after-discharge care Follow-up information has not been specified. Fay Sanchez PA-C 11/02/20 1524 Pt states about 1 week ago she began having right knee swelling with pain /10. 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 No redness noted to the area at this time. documented in this encounter ED PROVIDER NOTE [facility] NAME: Radha Shafer AGE: 59 y.o. : 1960 VISIT DATE: 05/07/2019 CSN: [id number] PCP: Elana Pena DO Chief Complaint Patient [...] TOTAL THYROIDECTOMY; Surgeon: Lopez Alonso MD; Location: 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 Follow-up Information 1. Rivas Mancini DO. Specialties: General Surgery, Pain Management, Physical Medicine/Rehabilitation Why: Call first thing in the morning to arrange for follow-up [address] [facility] [address] 2. Rusty Dozier MD. Specialty: Neurology Why: Call first thing in the morning to arrange for follow-up [address] [facility] [address] Contact information for after-discharge care Follow-up information [...] 0935 (Given - Provider: Delon Gavin RN) DULoxetine (CYMBALTA) DR capsule 60 mg [...] Juárez RN)1429 (Given - Provider: Shaina Juárez RN)2159 (Given - Provider: Dinorah Arriaza RN) 0854 (Given - Provider: Shaina Juárez RN)1520 (Given - Provider: Shaina Juárez RN)2130 (Given - Provider: Delon Gavin RN) 0941 (Given - Provider: Delon Gavin RN) heparin (porcine) injection 5,000 Units 5,000 Units, Subcutaneous, Every 8 hours scheduled, First dose on Egge 03/31/22 at 0600, PACU to Post Procedure, Notify physician if patient refuses. 0600 (Given - Provider: Bran Piedra RN)1429 (Given - Provider: Shaina Juárez RN)2151 (Given - Provider: Dinorah Arriaza RN) 0546 [...] 0935 (Given - Provider: Delon Gavin, JASON) pantoprazole (PROTONIX) EC tablet 40 mg 40 mg, Oral, Daily, First dose on Mon03/30/22 at 2000, PACU to Post Procedure, DO NOT CRUSH OR CHEW. 0900 (Given - Provider: Shaina Juárez RN) 0900 (Given - Provider: Shaina Juárez RN) 0941 (Given - Provider: Delon Gavin RN) sodium chloride (PF) (NS) flush 5 [...] Juárez RN)2200 (Canceled Entry - Provider: Delon Gavin, RN) 0600 (Canceled Entry - Provider: Delon Gavin RN) tamsulosin (FLOMAX) 24 hr capsule 0.4 mg 0.4 mg, Oral, After evening meal, First dose on Mon04/01/22 at 1800, DO NOT CRUSH OR CHEW. Give 30 minutes after the same meal daily. Monitor for orthostasis due to potential risk of syncope. 182 (Given - Provider: Shaina Juárez RN) 1657 [...] Juárez RN)2133 (Given - Provider: Delon Gavin, JASON) 0944 (Given - Provider: Delon Gavin, RN) [...] Bran Piedra RN)1634 (Given - Provider: Shaina Juárez, RN)2210 (Given - Provider: Dinorah Arriaza RN) [...] 0828 (Given - Provider: Amelia Rice RN) 09 (Given - Provider: Rd Blank RN) 0855 (Given - Provider: Angela Davila, RN) azithromycin (ZITHROMAX) tablet 250 mg (CANCELED) [...] to meet caloric needs., Indication: Infectious Diarrhea 09 (Given - Provider: Rd Blank RN) 0855 (Given - Provider: Angela Davila RN) DULoxetine (CYMBALTA) DR capsule 60 mg 60 mg, Oral, Daily, First dose on Mon06/22/22 at 0900, DO NOT CRUSH OR CHEW. 0829 (Given - Provider: Amelia Rice RN) 09 (Given - Provider: Rd Blank RN) 0855 (Given - Provider: Angela Davila RN) hydrALAZINE (APRESOLINE) tablet 25 mg (CANCELED) 25 mg, Oral, Every 8 hours scheduled, First dose (after last modification) on Mon06/25/22 at 1400 0548 (Given - Provider: Silvia Jarrett LPN) ipratropium-albuteroL (DUO-NEB) 0.5-2.5 mg/3 ml nebulizer solution 3 mL 3 mL, Inhalation, Every 6 hours while awake (RT), First dose on Mon06/26/22 at 1200 0724 (Given - Provider: Margie Huynh, REWRITE EDITOR)1425 (Given - Provider: Margie Huynh, REWRITE EDITOR)1913 (Given - Provider: Cecille Maria, REWRITE EDITOR) 0720 (Given - Provider: Margie Huynh, REWRITE EDITOR)1404 (Given - Provider: Margie Huynh, REWRITE EDITOR)2048 (Given - Provider: Mike Esqueda, REWRITE EDITOR) 0716 (Given - Provider: Aleisha Pickett, GILDA)1400 [...] 24 HRS 0915 (Given - Provider: Rd Blank, JASON)1402 (Given - Provider: Rd Blank, JASON)2024 (Given - Provider: Lexis Dorado LPN) 0854 (Given - Provider: Angela Davila, JASON) magnesium sulfate 2 g in sterile water (SW) 50 mL IVPB (COMPLETED) 2 g, Intravenous, at 50 mL/hr, Once, On Mon06/28/22 at 1145, For 1 dose 1224 (New Bag - Provider: Rd Blank RN) 0900 (Stopped - Provider: Angela Davila RN) metoprolol tartrate (LOPRESSOR) tablet 25 mg [...] Sapna Maldonado RN)1612 (Restarted - Provider: Lawanda Baker, JASON)2017 (Paused - Provider: Sapna Maldonado, RN)2017 (Restarted - Provider: Sapna Maldonado RN)2019 [...] 8 per minute., Starting on Mon06/21/22 at 2056, Mix nalOXone (NARCAN) 0.4 mg (1mL) with 9 mL of Normal Saline to total 10 mL. Administer 0.1 mg (2.5mL) IV Push every 2 minutes until respiratory rate is 10 or greater. naloxone (NARCAN) injection 0.4 mg(Linked Group 2) 0.4 mg, Intravenous, As needed, opioid reversal, patient is pulseless, breathless, and unresponsive, Starting on Mon06/21/22 at 2056, Call a code first, then administer naloxone dose undiluted IV Push over 30 seconds. oxyCODONE (ROXICODONE) immediate release tablet 5 mg 5 mg, Oral, Every 4 hours PRN, moderate to severe pain, Starting on Mon06/21/22 at 2056 2019 (Given - Provider: Sapna Maldonado, RN) 0536 (Given - Provider: Sapna Maldonado RN)1325 (Given - Provider: Rd Blank, JASON)202 (Given - Provider: Lexis Dorado LPN) 0854 [...] Silva, GILDA)0711 (Given - Provider: Cecille Maria, REWRITE EDITOR)1404 (Given - Provider: Reema Anne, GILDA) aspirin chewable tablet 81 mg 81 mg, Oral, Daily, First dose on Mon09/02/24 at 1999 2000 (Not Given - Provider: Kayla Mujica, RN - Reason: Patient/family refused) 0919 (Given - Provider: Jaspreet Barnes, JASON) atorvastatin (LIPITOR) tablet 5 mg 5 mg, Oral, Nightly, First dose on Mon09/02/24 at 2100 2122 (Given - Provider: Kayla Mujica, RN) cefTRIAXone (ROCEPHIN) IVPB 2 g (premix) (COMPLETED) 2,000 mg, Intravenous, at 100 mL/hr, Once, On Mon09/02/24 at 1220, For 1 dose, Indication: CAP 1300 (New Bag - Provider: Tram Perez, RN)1429 (Stopped - Provider: Tram Perez, JASON) docusate sodium (COLACE) capsule 100 mg [...] Mujica RN) 917 (Given - Provider: Jaspreet Barnes, JASON) DULoxetine (CYMBALTA) DR capsule 60 mg 60 mg, Oral, Daily, First dose on Mon09/02/24 at 1999, DO NOT CRUSH OR CHEW. 1999 (Not Given - Provider: Kayla Mujica RN - Reason: Patient/family refused) 917 (Given - Provider: Jaspreet Barnes, JASON) enoxaparin (LOVENOX) syringe 30 mg 30 mg, Subcutaneous, Daily, First dose on Mon09/02/24 at 1999, Administer in abdomen unless otherwise directed by prescriber. Notify physician if patient refuses., Indication: VTE Prophylaxis 1999 (Not Given - Provider: Kayla Mujica RN - Reason: Patient/family refused) 915 (Given - Provider: Jaspreet Barnes, JASON) ferrous [...] 4 doses 2123 (Given - Provider: Kayla Mujica, JASON) 09 (Given - Provider: Jaspreet Barnes, RN) methylPREDNISolone sod suc(PF) (SOLU-medrol) Injection 125 mg (COMPLETED) 125 mg, Intravenous, Once, On Mon09/02/24 at 1130, For 1 dose 114 (Given - Provider: Tram Perez, JASON) metoprolol [...] 18 (Given - Provider: Jaspreet Barnes RN) NIFEdipine (PROCARDIA XL) 24 hr tablet 30 mg 30 mg, Oral, Daily, First dose on Mon09/02/24 at 1999, DO NOT CRUSH OR CHEW. 2122 (Given - Provider: Kayla Mujica RN) 919 (Given - Provider: Jaspreet Barnes RN) pantoprazole (PROTONIX) EC tablet 40 mg 40 mg, Oral, Daily, First dose on Mon09/02/24 at 1999, DO NOT CRUSH OR CHEW. 2122 (Given - Provider: Kayla Mujica RN) 918 (Given - Provider: Jaspreet Barnes RN) sodium [...] 2330 0751 (Given - Provider: Aye Marshall, REWRITE EDITOR)1912 (Given - Provider: Bindu Watson, REWRITE EDITOR) 0707 (Given - Provider: Negar Wood, REWRITE EDITOR)2108 (Given - Provider: Delmy Brock, REWRITE EDITOR) 0812 (Given - Provider: Malika Davila, REWRITE EDITOR) cefTRIAXone (ROCEPHIN) IVPB 2 g (premix) (CANCELED) [...] interval prolongation. 2013 (Given - Provider: Prema Fowler RN) 2027 (Given - Provider: Lorna Velázquez RN) DULoxetine (CYMBALTA) DR capsule 60 mg 60 mg, Oral, Daily, First dose on 09/22/24 at 0900, DO NOT CRUSH OR CHEW. 0846 (Given - Provider: Jaspreet Barnes RN) 0815 (Given - Provider: Anna Hairston) 0941 (Given - Provider: Berkley Back, RN) enoxaparin (LOVENOX) syringe 30 mg (CANCELED) 30 [...] Oral, Daily with breakfast, First dose on 09/22/24 at 0800 0845 (Given - Provider: Jaspreet Barnes RN) 0815 (Given - Provider: Anna Hairston) 0941 (Given - Provider: Berkley Back, RN) furosemide (LASIX) tablet 20 mg 20 mg, [...] Fowler RN) 2027 (Given - Provider: Lorna Velázquez [...] Fowler RN) 0507 (Given - Provider: Prema Fowler, JASON)1340 (Given - Provider: Anna Hairston) metoprolol tartrate (LOPRESSOR) tablet 100 mg 100 mg, Oral, 2 times daily, First dose on 09/22/24 at 0030, Hold for HR<60 0845 (Given - Provider: Jaspreet Barnes RN)2013 (Given - Provider: Prema Fowler, JASON) 0815 (Given - Provider: Anna Hairston)2026 (Given - Provider: Lorna Velázquez, JASON) 0941 (Given - Provider: Berkley Back, RN) NIFEdipine (PROCARDIA XL) 24 hr tablet 30 [...] Saline lock 0600 (Given - Provider: Prema Fowler, JASON)1400 (Given - Provider: Jaspreet Barnes, JASON)2137 (Given - Provider: Prema Fowler RN) 0600 (Given - Provider: Prema Heeke, RN)1400 (Given - Provider: Jaspreet Barnes RN)2026 [...] 2100 2013 (Given - Provider: Prema Fowler, JASON) 2026 (Given - Provider: Lorna Velázquez RN) [...] Barnes RN) 0945 (Given - Provider: Berkley Back, RN)1200 (Due) PRN Medication Order 09/23/2024 09/24/2024 [...] than 170, Starting on Mon09/24/24 at 1428 1446 (Given - Provider: Jaspreet Barnes RN) melatonin Tab 5 mg 5 mg, Oral, Nightly PRN, Sleep, Starting on 09/21/24 at 2340 perflutren lipid microspheres (DEFINITY) 0.143 mg/mL solution 0-10 mL of mixture 0-10 mL of mixture, Intravenous, Once in imaging, contrast, IF suboptimal echo, Starting on Mon09/23/24 at 1048, For 48 hours, Prepare syringe [...] dose on 09/22/24 at 0030, Saline lock And sodium chloride [...] at 0900 0916 (Given - Provider: Rachael Huffman, JASON) 0838 (Given - Provider: Delmy Olmedo, JASON) 0807 (Given - Provider: Marina Jarrett RN) atorvastatin (LIPITOR) tablet 10 mg 10 [...] Juarez, JASON) 0541 (Given - Provider: Reema Juarez RN)220 (Given - Provider: Carolyn Ryder, JASON) 0628 (Given - Provider: Carolyn Ryder, JASON) DULoxetine (CYMBALTA) DR capsule 60 mg 60 mg, Oral, Daily, First dose on Mon02/14/25 at 0900, DO NOT CRUSH OR CHEW. 0916 (Given - Provider: Rachael Huffman, RN) 0838 (Given - Provider: Delmy Olmedo, RN) 0807 (Given - Provider: Marina Jarrett, RN) furosemide (LASIX) injection 20 mg (COMPLETED) 20 mg, Intravenous, 2 times daily, First dose on Mon02/16/25 at 1230, For 3 doses, Administer IV push at 20 mg per minute (doses higher than 100 mg require IVPB) 1319 (Given - Provider: Rachael Huffman, RN)1802 (Given - Provider: Rachael Huffman, RN) 0838 [...] Carroll Gomez LPN)1318 (Given - Provider: Rachael Huffman, JASON)2349 (Given - Provider: Reema Juarez, JASON) 0542 (Given - Provider: Reema Juarez, JASON)1400 (Not Given - Provider: Delmy Olmedo RN - Reason: Patient/family refused)2209 (Given - Provider: Carolyn Ryder, RN) 0628 (Given - Provider: Carolyn Ryder, RN)1400 (Not Given - Provider: Marina Jarrett, RN - Reason: Patient/family refused) ipratropium-albuteroL (DUO-NEB) 0.5-2.5 mg/3 ml nebulizer solution 3 mL (CANCELED) 3 mL, Inhalation, Every 4 hours scheduled (RT), First dose on Mon02/14/25 at 0940 0423 (Given - Provider: Noris Jaramillo)0847 (Given - Provider: Alexandria Sanchez)1111 (Given - Provider: Alexandria Sanchez)1509 (Given - Provider: Esperanza Suggs, REWRITE EDITOR)1938 (Given - Provider: Noris Jaramillo) 0019 (Given - Provider: Noris Jaramillo)0328 (Given - Provider: Noris Jaramillo)0800 (Canceled Entry - Provider: Aleisha Pickett, REWRITE EDITOR - Comment: order changed) ipratropium-albuteroL (DUO-NEB) 0.5-2.5 mg/3 ml nebulizer solution 3 mL 3 mL, Inhalation, Every 6 hours scheduled (RT), First dose (after last modification) on Mon02/17/25 at 0815 0846 (Given - Provider: Aleisha Pickett, REWRITE EDITOR)1326 (Given - Provider: Evelina Ca, GILDA)1951 (Given - Provider: Belkys Silva, REWRITE EDITOR) 0101 (Given - Provider: Belkys Silva, GILDA)0724 (Given - Provider: Cecille Maria, GILDA)1437 (Given - Provider: Reema Anne, GILDA) levothyroxine [...] may need adjusted to meet caloric needs. 2349 (Given - Provider: Reema Juarez, JASON) 2015 (Given - Provider: Carolyn Ryder, JASON) lisinopriL (PRINIVIL,ZESTRIL) tablet 20 mg 20 mg, Oral, Daily with lunch, First dose on Mon02/14/25 at 1200 1318 (Given - Provider: Rachael Huffman, RN) 1127 (Given - Provider: Delmy Olmedo, JASON) 1230 (Given - Provider: Marina Jarrett, JASON) magnesium sulfate 2 g in sterile [...] First dose on Gege 02/13/25 at 2345 0916 (Given - Provider: Rachael Huffman RN)2348 (Given - Provider: Reema Juarez, RN) 0838 (Given - Provider: Delmy Olmedo, JASON)2209 (Given - Provider: Carolyn Ryder, RN) 0824 (Given - Provider: Marina Jarrett, RN) mometasone-formoterol (DULERA) 200-5 mcg/actuation inhaler 2 puff(Linked Group 1) 2 puff, Inhalation, 2 times daily (RT), First dose on Mon02/14/25 at 0900 0931 (Given - Provider: Rachael Huffman RN)2346 (Given - Provider: Reema Juarez, JASON) 0900 (Given - Provider: Delmy Olmedo, JASON)1999 (Given - Provider: Carolyn Ryder, JASON) 0806 (Not Given - Provider: Marina Jarrett RN - Reason: Patient/family refused) NIFEdipine (PROCARDIA XL) 24 hr tablet 30 mg 30 mg, Oral, Daily, First dose on 02/14/25 at 0900, DO NOT CRUSH OR CHEW. [...] dose on Mon02/13/25 at 2305, Saline lock 0600 (Not Given [...] Ryder RN)1400 (Not Given - Provider: Marina Jarertt RN - Reason: Loss of IV access) sulfamethoxazole-trimetho prim (BACTRIM DS,SEPTRA DS) 800-160 mg per tablet 1 tablet 1 tablet, Oral, Every 12 hours scheduled, First dose on Mon02/16/25 at 1230, For 5 days, Indication: Travelers Diarrhea 1319 (Given - Provider: Rachael Huffman, RN)2349 (Given - Provider: Reema Juarez RN) 0838 (Given - Provider: Delmy Olmedo, JASON)2216 (Given - Provider: Carolyn Ryder, JASON) 0807 (Given - Provider: Marina Jarrett, JASON) tiZANidine (ZANAFLEX) tablet 12 mg 12 mg, Oral, At bedtime, First dose on Mon02/13/25 at 2345 2349 (Given - Provider: Reema Juarez RN) 2209 (Given - Provider: Carolyn Ryder, JASON) Continuous Medication Order 02/16/2025 02/17/2025 02/18/2025 dextrose [...] For 2 doses, Anginal pain, may repeat [id number] x2, then notify physician. DO NOT CRUSH [...] as the secondary infusion, Starting on Gege /10/25 at 2303, Run as Primary IV. NOT [...] equal to 8 per minute., Starting on Mon02/13/25 at 2303, Mix nalOXone (NARCAN) 0.4 mg (1mL) with 9 mL of Normal Saline to total 10 mL. Administer 0.1 mg (2.5mL) IV Push every 2 minutes until respiratory rate is 10 or greater. And Notify physician (CANCELED) STAT, Until discontinued, Starting on Mon02/13/25 at 2304, Until Specified, Respiratory rate less [...] Care Teams (unrecognized sec tion and content) Equipment Service Engineer Relationship Specialty Start Date End Date Jonathan Rutherford, SQL DATA ANALYST [address] [place] [address] PCP - General Nurse Practitioner 11/02/20 Elana Pena, DO [address] [place] [address] Referring Physician Family Medicine 07/15/16 Jonathan Rutherford, SQL DATA ANALYST [address] [place] [address] Referring Physician Nurse Practitioner 07/22/21 Equipment Service Engineer Relationship Specialty Start Date End Date Jonathan Rutherford, SQL DATA ANALYST [address] [place] [address] PCP - General Nurse Practitioner 11/02/20 Elana Pena, DO [address] [place] [address] Referring Physician Family Medicine 07/15/16 Jonathan Rutherford, SQL DATA ANALYST [address] [place] [address] Referring Physician Nurse Practitioner 07/22/21 Equipment Service Engineer Relationship Specialty Start Date End Date Jonathan Rutherford CNP [address] [place] [address] PCP - General Nurse Practitioner 11/02/20 Elana Pena, DO [address] [place] [address] Referring Physician Family Medicine 07/15/16 Jonathan Rutherford, SQL DATA ANALYST [address] [place] [address] Referring Physician Nurse Practitioner 07/22/21 Equipment Service Engineer Relationship Specialty Start Date End Date Jonathan Rutherford, SQL DATA ANALYST [address] [place] [address] PCP - General Nurse Practitioner 11/02/20 Elana Pena, DO [address] [place] [address] Referring Physician Family Medicine 07/15/16 Jonathan Rutherford, SQL DATA ANALYST [address] [place] [address] Referring Physician Nurse Practitioner 07/22/21 Equipment Service Engineer Relationship Specialty Start Date End Date Jonathan Rutherford, SQL DATA ANALYST [address] [place] [address] PCP - General Nurse Practitioner 11/02/20 Elana Pena, DO [address] [place] [address] Referring Physician Family Medicine 07/15/16 Jonathan Rutherford, SQL DATA ANALYST [address] [place] [address] Referring Physician Nurse Practitioner 07/22/21 Equipment Service Engineer Relationship Specialty Start Date End Date Jonathan Rutherford, SQL DATA ANALYST [address] [place] [address] PCP - General Nurse Practitioner 11/02/20 Elnaa Pena, DO [address] [place] [address] Referring Physician Family Medicine 07/15/16 Jonathan Rutherford, SQL DATA ANALYST [address] [place] [address] Referring Physician Nurse Practitioner 07/22/21 Equipment Service Engineer Relationship Specialty Start Date End Date Jonathan Rutherford, SQL DATA ANALYST [address] [place] [address] PCP - General Nurse Practitioner 11/02/20 Elana Pena, DO [address] [place] [address] Referring Physician Family Medicine 07/15/16 Jonathan Rutherford, SQL DATA ANALYST [address] [place] [address] Referring Physician Nurse Practitioner 07/22/21 Equipment Service Engineer Relationship Specialty Start Date End Date Jonathan Rutherford SQL DATA ANALYST [address] [place] [address] PCP - General Nurse Practitioner 11/02/20 Jonathan Rutherford SQL DATA ANALYST [address] [place] [address] Referring Physician Nurse Practitioner 07/22/21 Equipment Service Engineer Relationship Specialty Start Date End Date Jonathan Rutherford SQL DATA ANALYST [address] [place] [address] PCP - General Nurse Practitioner 11/02/20 Jonathan RutherfordDonna SQL DATA ANALYST [address] [place] [address] Referring Physician Nurse Practitioner 07/22/21 Equipment Service Engineer Relationship Specialty Start Date End Date Jonathan Rutherford SQL DATA ANALYST [address] [place] [address] PCP - General Nurse Practitioner 11/02/20 Jonathan RutherfordDonna SQL DATA ANALYST [address] [place] [address] Referring Physician Nurse Practitioner 07/22/21 Equipment Service Engineer Relationship Specialty Start Date End Date Jonathan RutherfordDonna SQL DATA ANALYST [address] [place] [address] PCP - General Nurse Practitioner 11/02/20 Jonathan RutherfordDonna, SQL DATA ANALYST [address] [place] [address] Referring Physician Nurse Practitioner 07/22/21 Equipment Service Engineer Relationship Specialty Start Date End Date Jonathan RutherfordDonna SQL DATA ANALYST [address] [place] [address] PCP - General Nurse Practitioner 11/02/20 Jonathan Rutherford, SQL DATA ANALYST [address] [place] [address] Referring Physician Nurse Practitioner 07/22/21 Equipment Service Engineer Relationship Specialty Start Date End Date Wilfridyonis Jonathan L., SQL DATA ANALYST [address] [place] [address] PCP - General Nurse Practitioner 11/02/20 Jonathan Rutherford, SQL DATA ANALYST [address] [place] [address] Referring Physician Nurse Practitioner 07/22/21 Equipment Service Engineer Relationship Specialty Start Date End Date Wilfridvaleriaaugustin Jonathan L., SQL DATA ANALYST [address] [place] [address] PCP - General Nurse Practitioner 11/02/20 Jonathan Rutherford SQL DATA ANALYST [address] [place] [address] Referring Physician Nurse Practitioner 07/22/21 Equipment Service Engineer Relationship Specialty Start Date End Date Jonathan Rutherford SQL DATA ANALYST [address] [place] [address] PCP - General Nurse Practitioner 11/02/20 Jonathan Rutherford SQL DATA ANALYST [address] [place] [address] Referring Physician Nurse Practitioner 07/22/21 Equipment Service Engineer Relationship Specialty Start Date End Date Jonathan Rutherford SQL DATA ANALYST [address] [place] [address] PCP - General Nurse Practitioner 11/02/20 Jonathan Rutherford SQL DATA ANALYST [address] [place] [address] Referring Physician Nurse Practitioner 07/22/21 Equipment Service Engineer Relationship Specialty Start Date End Date Jonathan Rutherford, SQL DATA ANALYST [address] [place] [address] PCP - General Nurse Practitioner 11/02/20 Jonathan Rutherford, SQL DATA ANALYST [address] [place] [address] Referring Physician Nurse Practitioner 07/22/21 Equipment Service Engineer Relationship Specialty Start Date End Date Jonathan Rutherford, SQL DATA ANALYST [address] [place] [address] PCP - General Nurse Practitioner 11/02/20 Jonathan Rutherford, SQL DATA ANALYST [address] [place] [address] Referring Physician Nurse Practitioner 07/22/21 Equipment Service Engineer Relationship Specialty Start Date End Date Jonathan Rutherford, LOOM CHANGER [address] [facility] [place] [address] PCP - General Nurse Practitioner 11/23/20 Equipment Service Engineer Relationship Specialty Start Date End Date Jonathan Rutherford, LOOM CHANGER [address] [facility] [place] [address] PCP - General Nurse Practitioner 11/23/20 Equipment Service Engineer Relationship Specialty Start Date End Date Jonathan Rutherford, LOOM CHANGER [address] [facility] [place] [address] PCP - General Nurse Practitioner 11/23/20 Team Status: Active Member Role Status Dates Dr. Jennifer Gordon MD Primary Care Provider Active Team Status: Inactive Member Role Status Dates Dr. Rusty Dozier MD Attending Provider Active Team Status: Inactive Member Role Status Dates Jonathan Rutherford FACTORY REPRESENTATIVE, FACTORY REPRESENTATIVE-C Referring Provider Active Dr. Jennifer Gordon MD Primary Care Provider, [facility] Active Team Status: Inactive Member Role Status Dates Jonathan Rutherford FACTORY REPRESENTATIVE, FACTORY REPRESENTATIVE-C Primary Care Provider Active Dr. Rusty Dozier [...] Dr. Rusty Dozier MD Referring Provider Active Equipment Service Engineer Relationship Specialty Start Date End Date Jonathan Rutherford, LOOM CHANGER [address] [place] [address] PCP - General Nurse Practitioner 11/23/20 Team Status: Inactive Member Role Status Dates Dr. Jennifer Gordon MD Primary Care Provider, Referri ng Provider Active Sasha Heredia FACTORY REPRESENTATIVE, FACTORY REPRESENTATIVE-C Attending Provider Active Team Status: Inactive Member [...] Inactive Member Role Status Dates Sasha Heredia FACTORY REPRESENTATIVE, FACTORY REPRESENTATIVE-C Attending Provider, Referrin g Provider Active Dr. Jennifer Gordon MD Primary Care Provider Active Equipment Service Engineer Relationship Specialty Start Date End Date Jonathan Rutherford, SQL DATA ANALYST [address] [place] [address] PCP - General Nurse Practitioner 11/02/20 Jonathan Rutherford, SQL DATA ANALYST [address] [place] [address] Referring Physician Nurse Practitioner 07/22/21 Equipment Service Engineer Relationship Specialty Start Date End Date Jonathan Rutherford, SQL DATA ANALYST [address] [place] [address] PCP - General Nurse Practitioner 11/02/20 Jonathan Rutherford, SQL DATA ANALYST [address] [place] [address] Referring Physician Nurse Practitioner 07/22/21 Equipment Service Engineer Relationship Specialty Start Date End Date Jonathan Rutherford, [facility] [address] [place] [address] PCP - General Nurse Practitioner 11/23/20 Team [...] MD Attending Provider, Referri ng Provider Active Equipment Service Engineer Relationship Specialty Start Date End Date Jonathan Rutherford, [facility] [address] [id number] PCP - General Nurse Practitioner 11/23/20 Team [...] DO Attending Provider, Referring Pro vider Active Equipment Service Engineer Relationship Specialty Start Date End Date Jonathan Rutherford, RUIZ [address] [place] [address] PCP - General Nurse Practitioner 11/02/20 Jonathan Rutherford, RUIZ [address] [place] [address] Referring Physician Nurse Practitioner 07/22/21 Equipment Service Engineer Relationship Specialty Start Date End Date No, Physician [facility] PCP - General 09/02/24 Equipment Service Engineer Relationship Specialty Start Date End Date No, Physician [facility] PCP - General 09/02/24 Equipment Service Engineer Relationship Specialty Start Date End Date No, Physician [facility] PCP - General 09/02/24 Equipment Service Engineer Relationship Specialty Start Date End Date No, Physician [facility] PCP - General 09/02/24 Equipment Service Engineer Relationship Specialty Start Date End Date No, Physician [facility] PCP - General 09/02/24 Equipment Service Engineer Relationship Specialty Start Date End Date Alexandre Jonathan JUANIS KruseP [address] [place] [address] PCP - General Nurse Practitioner 11/23/20 Equipment Service Engineer Relationship Specialty Start Date End Date No, Physician [facility] PCP - General 09/02/24 Team [...] February 03, 2025 End: February 03, 2025 Equipment Service Engineer Relationship Specialty Start Date End Date No, Physician [facility] PCP - General 09/02/24 Jennifer Sterling [place] Primary Care Physician 02/17/25 Team Status: Inactive [...] Active Start: April 17, 2025 Sasha Heredia FACTORY REPRESENTATIVE, FACTORY REPRESENTATIVE-C Attending Provider Active Start: April 17, 2025 Sasha Heredia FACTORY REPRESENTATIVE, FACTORY REPRESENTATIVE-C Referring Provider Active Start: April 17, 2025 Team Status: Inactive Member Role Status Dates Dr. Jennifer Gordon MD Primary Care Provider Active Start: April 17, 2025 End: April 17, 2025 Sasha Heredia FACTORY REPRESENTATIVE, FACTORY REPRESENTATIVE-C Attending Provider Active Start: April 17, 2025 End: April 17, 2025 Sasha Heredia FACTORY REPRESENTATIVE, FACTORY REPRESENTATIVE-C Referring Provider Active Start: April 17, 2025 End: April 17, 2025 Equipment Service Engineer Relationship Specialty Start Date End Date No, Physician [facility] PCP - General 09/02/24 Jennifer Sterling [place] Primary Care Physician 02/17/25 Equipment Service Engineer Relationship Specialty Start Date End Date Not On File, [facility] [address] [place] [address] PCP - General Unknown Physician Specialty 04/14/25 [...] 2025 End: April 17, 2025 Sasha Heredia NP, FACTORY REPRESENTATIVE-C Attending Provider Active Start: April 17, 2025 End: April 17, 2025 Sasha Heredia FACTORY REPRESENTATIVE, FACTORY REPRESENTATIVE-C Referring Provider Active Start: April 17, 2025 [...] May 07, 2025 End: May 07, 2025 Equipment Service Engineer Relationship Specialty Start Date End Date Not On File, [facility] [address] [place] [address] PCP - General Unknown Physician Specialty 04/14/25 Equipment Service Engineer Relationship Specialty Start Date End Date Not On File, [facility] [address] [place] [address] PCP - General Unknown Physician Specialty 04/14/25 [...] 2025 End: April 17, 2025 Sasha Heredia NP, FACTORY REPRESENTATIVE-C Attending Provider Active Start: April 17, 2025 End: April 17, 2025 Sasha Heredia NP, FACTORY REPRESENTATIVE-C Referring Provider Active Start: April 17, 2025 [...] Inactive Member Role/Relationship Status Dates Dr. Jennifer Grodon MD Primary Care Provider Active Start: April [...] 2025 End: April 17, 2025 Sasha Heredia FACTORY REPRESENTATIVE, FACTORY REPRESENTATIVE-C Attending Provider Active Start: April 17, 2025 End: April 17, 2025 Sasha Heredia FACTORY REPRESENTATIVE, FACTORY REPRESENTATIVE-C Referring Provider Active Start: April 17, 2025 [...] 27, 2025 End: March 27, 2025 Dr. Jennfier Gordon MD Referring Provider Active Start: March [...] 2025 End: April 17, 2025 Sasha Heredia FACTORY REPRESENTATIVE, FACTORY REPRESENTATIVE-C Attending Provider Active Start: April 17, 2025 End: April 17, 2025 Sasha Heredia FACTORY REPRESENTATIVE, FACTORY REPRESENTATIVE-C Referring Provider Active Start: April 17, 2025 [...] 2025 End: June 17, 2025 Colette Black FACTORY REPRESENTATIVE-C Attending Provider Active Start: June 17, 2025 End: June 17, 2025 Team Status: Inactive Member Role/Relationship Status Dates Dr. Jennifer Gordon MD Primary Care Provider Active Start: June 24, 2025 End: June 24, 2025 Colette Black NP-C Attending Provider Active Start: June 24, 2025 End: June 24, 2025 Colette Black FACTORY REPRESENTATIVE-C Referring Provider Active Start: June 24, 2025 End: June 24, 2025 Team Status: Inactive Member Role/Relationship Status Dates Dr. Jennifer Gordon MD Primary Care Provider Active Start: June 26, 2025 End: June 26, 2025 Dr. Jennifer Gordon MD Referring Provider Active Start: June 26, 2025 End: June 26, 2025 Mihaela Ungerer , FACTORY REPRESENTATIVE-C Attending Provider Active Start: June 26, 2025 End: June 26, 2025 Team Status: Active Member Role/Relationship Status Dates Dr. Jennifer Gordon MD Primary Care Provider Active Start: June 26, 2025 Mihaela Ungerer , FACTORY REPRESENTATIVE-C Attending Provider Active Start: June 26, 2025 Mihaela Ungerer , FACTORY REPRESENTATIVE-C Referring Provider Active Start: June 26, 2025 Team Status: Inactive Member Role/Relationship Status Dates Dr. Jennifer Gordon MD Primary Care Provider Active Start: June 26, 2025 End: June 26, 2025 Mihaela Ungerer , FACTORY REPRESENTATIVE-C Attending Provider Active Start: June 26, 2025 End: June 26, 2025 Mihaela Ungerer , FACTORY REPRESENTATIVE-C Referring Provider Active Start: June 26, 2025 End: June 26, 2025 Team Status: Active Member Role/Relationship Status Dates Dr. Jennifer Gordon MD Primary Care Provider Active Start: July 11, 2025 Colette Black FACTORY REPRESENTATIVE-C Attending Provider Active Start: July 11, 2025 Colette Black FACTORY REPRESENTATIVE-C Referring Provider Active Start: July 11, 2025 Team Status: Active Member Role/Relationship Status Dates Dr. Jennifer Gordon MD Primary Care Provider Active Start: July 17, 2025 Dr. Ramakrishna Maher MD Emergency Provider Active Sta rt: July 17, 2025 Dr. Elana Deshpande DO Admit Provider Active Start: July 17, 2025 Dr. Elana Deshpande DO Attending Provider Active Start: July 17, 2025 Team Status: Inactive Member Role/Relationship Status Dates Dr. Jennifer Gordon MD Primary Care Provider Active Start: July 17, 2025 End: July 20, 2025 Dr. Ramakrishna Maher MD Emergency Provider Active Sta rt: July 17, 2025 End: July 20, 2025 Dr. Elana Deshpande DO Admit Provider Active Start: July 17, 2025 End: July 20, 2025 Dr. Elana Deshpande DO Other Provider Active Start: July 17, 2025 End: July 20, 2025 Dr. Vincent Hood MD Attending Provider Active Start: July 17, 2025 End: July 20, 2025 Dr. Arnel Cano MD Other Provider Active Start: July 17, 2025 End: July 20, 2025 Team Status: Active Member Role/Relationship Status Dates Dr. Jennifer Gordon MD Primary Care Provider Active Start: July 18, 2025 Dr. Ramakrishna Maher MD Emergency Provider Active Sta rt: July 18, 2025 Dr. Elana Deshpande DO Admit Provider Active Start: July 18, 2025 Dr. Elana Deshpande DO Other Provider Active Start: July 18, 2025 Dr. Arnel Cano MD Attending Provider Active Start: July 18, 2025 Dr. Arnel Cano MD Other Provider Active Start: July 18, 2025 Team Status: Active Member Role/Relationship Status Dates Dr. Jennifer Gordon MD Primary Care Provider Active Start: July 19, 2025 Dr. Ramakrishna Maher MD Emergency Provider Active Sta rt: July 19, 2025 Dr. Elana Deshpande DO Admit Provider Active Start: July 19, 2025 Dr. Elana Deshpande DO Other Provider Active Start: July 19, 2025 Dr. Arnel Cano MD Attending Provider Active Start: July 19, 2025 Dr. Arnel Cano MD Other Provider Active Start: July 19, 2025 Team Status: Active Member Role/Relationship Status Dates Dr. Jennifer Gordon MD Primary Care Provider Active Start: July 20, 2025 Dr. Ramakrishna Maher MD Emergency Provider Active Sta rt: July 20, 2025 Dr. Elana de Jesus Alberto , DO Admit Provider Active Start: July 20, 2025 Dr. Elana Deshpande DO Other Provider Active Start: July 20, 2025 Dr. Vincent Hood MD Attending Provider Active Start: July 20, 2025 Dr. Vincent Hood MD Other Provider Active Sta rt: July 20, 2025 Dr. Arnel Cano MD Other Provider Active Start: July 20, 2025 Equipment Service Engineer Relationship Specialty Start Date End Date Andre Martinez MD [address] [place] [address] PCP - General Internal Medicine 07/22/25 Team Status: Active Member Role/Relationship Status Dates Dr. Jennifer Gordon MD Primary care physician Active Team Status: Inactive Member Role/Relationship Status Dates Dr. Jennifer Gordon MD Primary care physician Active Start: 2025 End: 2025 Dr. Jennifer Gordon MD Attending physician Active Start: 2025 End: 2025 Dr. Jennifer Gordon MD Referring Provider Active Start: 2025 End: 2025 Team Status: Inactive Member Role/Relationship Status Dates Dr. Jennifer Gordon MD Primary care physician Active Start: 2025 End: 2025 Dr. Jennifer Gordon MD Attending physician Active Start: 2025 End: 2025 Dr. Jennifer Gordon MD Referring Provider Active Start: 2025 End: 2025 Team Status: Inactive Member Role/Relationship Status Dates Dr. Jennifer Gordon MD Primary care physician Active Start: April 17, 2025 End: April 17, 2025 Sasha Heredia FACTORY REPRESENTATIVE, FACTORY REPRESENTATIVE-C Attending physician Active Start: April 17, 2025 End: April 17, 2025 Sasha Heredia FACTORY REPRESENTATIVE, FACTORY REPRESENTATIVE-C Referring Provider Active Start: April 17, 2025 End: April 17, 2025 Team Status: Inactive Member Role/Relationship Status Dates Dr. Jennifer Gordon MD Primary care physician Active Start: May 07, 2025 End: May 07, 2025 Dr. Jennifer Gordon MD Attending physician Active Start: May 07, 2025 End: May 07, 2025 Dr. Jennifer Gordon MD Referring Provider Active Start: May 07, 2025 End: May 07, 2025 Team Status: Inactive Member Role/Relationship Status Dates Dr. Jennifer Gordon MD Primary care physician Active Start: June 17, 2025 End: June 17, 2025 Dr. Jennifer Gordon MD Referring Provider Active Start: June 17, 2025 End: June 17, 2025 Colette Black NP-C Attending physician Active Start: June 17, 2025 End: June 17, 2025 Team Status: Inactive Member Role/Relationship Status Dates Dr. eJnnifer Gordon MD Primary care physician Active Start: June 24, 2025 End: June 24, 2025 LOUIS BarrosC Attending physician Active Start: June 24, 2025 End: June 24, 2025 Colette Black NP-C Referring Provider Active Start: June 24, 2025 End: June 24, 2025 Team Status: Inactive Member Role/Relationship Status Dates Dr. Jennifer Gordon MD Primary care physician Active Start: June 26, 2025 End: June 26, 2025 Dr. Jennifer Gordon MD Referring Provider Active Start: June 26, 2025 End: June 26, 2025 Mihaela Simpson NP-C Attending physician Active Start: June 26, 2025 End: June 26, 2025 Team Status: Inactive Member Role/Relationship Status Dates Dr. Jennifer Gordon MD Primary care physician Active Start: June 26, 2025 End: June 26, 2025 Mihaela Simpson NP-C Attending physician Active Start: June 26, 2025 End: June 26, 2025 Mihaela Simpson FACTORY REPRESENTATIVE-C Referring Provider Active Start: June 26, 2025 End: June 26, 2025 Team Status: Inactive Member Role/Relationship Status Dates Dr. Jennifer Gordon MD Primary care physician Active Start: July 11, 2025 End: July 11, 2025 LOUIS BarrosC Attending physician Active Start: July 11, 2025 End: July 11, 2025 Colette M Rufener , FACTORY REPRESENTATIVE-C Referring Provider Active Start: July 11, 2025 End: July 11, 2025 Team Status: Inactive Member Role/Relationship Status Dates Dr. Jennifer Gordon MD Primary care physician Active Start: July 17, 2025 End: July 20, 2025 Dr. Ramakrishna Maher MD Emergency Department Physician Active Start: July 17, 2025 End: July 20, 2025 Dr. Elana Deshpande DO Admitting physician Active Start: July 17, 2025 End: July 20, 2025 Dr. Elana Deshpande DO Nurse Practitioner Active Start: July 17, 2025 End: July 20, 2025 Dr. Vincent Hood MD Attending physician Active Start: July 17, 2025 End: July 20, 2025 Dr. Arnel Cano MD Nurse Practitioner Active Start: July End: July 20, 2025 Team Status: Active Member Role/Relationship Status Dates Dr. Jennifer Gordon MD Primary care physician Active Start: July 18, 2025 Dr. Ramakrishna Maher MD Emergency Department Physician Active Start: July 18, 2025 Dr. Elana Deshpande DO Admitting physician Active Start: July 18, 2025 Dr. Elana Deshpande DO Nurse Practitioner Active Start: July 18, 2025 Dr. Arnel Cano MD Attending physician Active Start: July Dr. Arnel Cano MD Nurse Practitioner Active Start: July Team Status: Active Member Role/Relationship Status Dates Dr. Jennifer Gordon MD Primary care physician Active Start: July 19, 2025 Dr. Ramakrishna Maher MD Emergency Department Physician Active Start: July 19, 2025 Dr. Elana Deshpande DO Admitting physician Active Start: July 19, 2025 Dr. Elana Deshpande DO Nurse Practitioner Active Start: July 19, 2025 Dr. Arnel Cano MD Attending physician Active Start: July Dr. Arnel Cano MD Nurse Practitioner Active Start: July Team Status: Active Member Role/Relationship Status Dates Dr. Jennifer Gordon MD Primary care physician Active Start: July 20, 2025 Dr. Ramakrishna Maher MD Emergency Department Physician Active Start: July 20, 2025 Dr. Elana Deshpande DO Admitting physician Active Start: July 20, 2025 Dr. Elana Deshpande DO Nurse Practitioner Active Start: July 20, 2025 Dr. Vincent Hood MD Attending physician Active Start: July 20, 2025 Dr. Vincent Hood MD Nurse Practitioner Active Start: July 20, 2025 Dr. Arnel Cano MD Nurse Practitioner Active Start: July Equipment Service Engineer Relationship Specialty Start Date End Date Andre Martinez MD [address] [place] [address] PCP - General Internal Medicine 07/22/25 Goals (unrecognized section and content) Goals may [...] BE BASED ON THE PRIMARY CLINICAL RECORDS. [facility]. provides no warranty or guarantee of the accuracy or completeness of information in this document.
[2025-10-11] MEDS: Sodium Chloride 19.25 MEQ in Dextrose 10%-Water 250 ML 12 MEQ IV (22:21)
[2025-10-11 22:34] LABS: Hematocrit 32.6 % (37-47); Hemoglobin 10.4 g/dL (12.0-15.0); Immature Granulocytes Count 0.060 X10^3/uL (0.0-0.0); Mean Corp Hgb Conc 31.9 g/dL (32-36); Mean Corpuscular Volume 86.0 fL (81-99); Mean Platelet Vol. 9.9 fl (6.2-12.0); NRBC Flagged by Analyzer 0 % (0-5); Platelet Count 297 K/mm3 (150-450); RBC Distribution Width CV 14.3 % (11.6-14.6); RBC Distribution Width SD 45.0 fl (35.1-43.9); Red Blood Count 3.79 M/mm3 (4.2-5.4); White Blood Count 9.6 K/mm3 (4.4-11.0)
[2025-10-11 23:20] LABS: AST(SGOT) 137 U/L (<=31); Alanine Aminotransfer ALT/SGPT 27 U/L (<=34); Albumin, Serum 4.2 g/dL (3.4-4.8); Alkaline Phosphatase 83 U/L (35-104); Anion Gap 10 (5-15); BUN 27 mg/dL (4-19); BUN/Creat Ratio 13.3 RATIO (10-20); Calcium,Total 8.7 mg/dL (7.6-11.0); Carbon Dioxide 26.3 mmol/L (21.0-32.0); Chloride 93 mmol/L (98-108); Estimated Creatinine Clearance 32.30 ml/min (50-250); Globulin 3.5 g/dL (2.2-4.2); Glucose 91 mg/dL (70-99); Magnesium 1.9 mg/dL (1.5-2.2); Potassium 5.0 mmol/L (3.3-5.1)
[2025-10-11 23:31] LABS: CPK Total, Creatine Kinase 3743 U/L (24-195)
[2025-10-11 23:41] VITALS: BP 172/81; PULSE 67; RESP 16; O2SAT 97
[2025-10-12] VITALS (19 sets, daily range): BP systolic 110–171; BP diastolic 52–117; PULSE 60–79; RESP 16–20; TEMP 36–36.9; O2SAT 92–98; BMI 36.8
--- NOTE | 2025-10-12 00:19 | EDS_ITS ---
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 She states that yesterday she had to harkins around to make it to julien ointments and forgot to eat. She states after doing this she began to feel diffuse muscle soreness and fatigue that she states is common with her CPT 2 deficiency. She states she ate and rested hoping that symptoms would improve. However despite doing this her pain persisted and increased. She states in the past when the symptoms have occurred she has required admission to the hospital and therefore presents for evaluation. [facility] Medical History Generalized weakness Arthrosis of right acromioclavicular joint Tendinosis of right rotator cuff Impingement of right shoulder Right shoulder pain Myalgia Neck pain Low back pain Anxiety Depression Osteoporosis Smoker On home oxygen therapy COPD (chronic obstructive pulmonary disease) Hypertension Hx of ventricular tachycardia COPD (chronic obstructive pulmonary disease) Chronic hypoxemic respiratory failure Polyclonal gammopathy Bence Davila protein present in urine Obesity Nonsustained ventricular tachycardia Coronary artery disease Syncope Palpitations Thyroid cancer Syncope and collapse Essential hypertension Fatigue Cervical radiculopathy Smoking greater than 30 pack years Hypoxia Chronic diarrhea Recurrent falls Fatty liver FELISA (obstructive sleep apnea) CKD (chronic kidney disease) stage 4, GFR 15-29 ml/min Acquired hypothyroidism History of vitamin D deficiency Peripheral arterial disease Vertigo Polyneuropathy Insomnia Carnitine palmitoyltransferase II deficiency Vision problems Thyroid cancer GERD (gastroesophageal reflux disease) Osteoarthritis Hypothyroid Neuropathy Kidney disease Hypertension History of emotional problems Chronic bronchitis Home Medications ?Medication ?Instructions ?Recorded ?Last Taken ?Type Disability Rogelioard #1 ea 02/07/23 Unknown Rx aspirin 81 mg tablet,delayed 81 mg PO DAILY heart heal th 04/18/23 07/17/25 History release (Adult Low Dose Aspirin) cholecalciferol (vitamin D3) 50 50 mcg PO DAILY vitami n 04/18/23 07/17/25 History mcg (2,000 unit) capsule ferrous sulfate 325 mg (65 mg 325 mg PO BID supplement 04/18/23 07/17/25 History iron) tablet levocarnitine 330 mg tablet 330 mg PO TID vitamin 04/0607/17/25 History compr.stocking,thigh,short,lrg #24 ea 02/29/24 Unknown Rx vitamin E (dl, acetate) 45 mg (100 45 mg PO QDAY suppl ement 01/06/25 07/17/25 History unit) capsule metoprolol tartrate 100 mg tablet 100 mg PO BID blood pressure #180 02/18/25 07/17/25 Rx tabs albuterol sulfate 90 mcg/actuation 2 puff inhalation Q 6H PRN copd 04/04/25 Unknown History aerosol inhaler lisinopril 20 mg tablet 10 mg PO QDAY hypertension 0 04/16/25 07/17/25 History duloxetine 60 mg capsule,delayed 60 mg PO DAILY mental health #90 04/17/25 07/17/25 Rx release caps nifedipine 30 mg tablet,extended 30 mg PO DAILY blood pressure #90 04/17/25 07/17/25 Rx release tabs omeprazole 40 mg capsule,delayed 40 mg PO DAILY for ac id reflux #90 04/17/25 07/17/25 Rx release caps albuterol sulfate 2.5 mg/3 mL 2.5 mg inhalation Q6 PRN wheezing 06/17/25 07/17/25 History (0.083 %) solution for nebulization lovastatin 10 mg tablet 10 mg PO QPM cholesterol #90 tabs 07/17/25 07/16/25 Rx OXYGEN - Supplemental ([facility] 07/18/25 Unknown History INFORMATIONAL USE ONLY) nebulizer kits #1 ea 08/26/25 Unknown Rx neublizer machine #1 ea 08/26/25 Unknown Rx levothyroxine 175 mcg tablet 175 mcg PO DAILY thyroid #90 tabs 09/05/25 Unknown Rx doxepin 100 mg capsule 100 mg PO QHS sleep #30 caps 09/07/25 Unknown Rx tizanidine 4 mg tablet See Rx Instructions .Route 1 11/07/24 Unknown Rx .COMPLEX spasms #150 tabs fluticasone fur. 200 mcg-umeclid 1 inh inhalation JOSE Y breathing 09/24/25 Unknown Rx 62.5 mcg-vilant 25 mcg #3 ea inhalat.powder (Trelegy Ellipta) guaifenesin 1,200 mg tablet, 1,200 mg PO BID #60 tabs 09/24/25 Unknown Rx extended release 12 hr (Mucinex) mepolizumab 100 mg/mL subcutaneous 100 mg subcut Q4W # 1 mL 09/24/25 Unknown Rx auto-injector (Nucala) levofloxacin 750 mg tablet 750 mg PO Q24H #10 tabs 03/30 Unknown Rx Allergy/AdvReac Type Severity Reaction Status Date / Time Penicillins Allergy Unknown Unknown Verified 10/11/25 21:46 [id number] (From AdvReac Severe Diarrhea Verified 10/11/25 21:46 Ajovy Syringe) vancomycin AdvReac Rash Verified 10/11/25 21:46 Family History Mother CVA (cerebral vascular accident) Heart disease Arthritis Lupus Father Myocardial infarction Hypertension Brother Colon cancer Brother Colon cancer Brother Cancer stomach Sister Seizures Grandfather Myocardial infarction Grandmother Myocardial infarction Surgical History History of cholecystectomy Cataract extraction status History of surgical procedure H/O thyroidectomy S/P cholecystectomy History of surgical procedure H/O wrist surgery History of repair of rotator cuff History of hysterectomy Hx of total knee replacement Social History household members: family housing: apartment current occupational status: unemployed Smoking Status: Former smoker quit date: 07/10/13 pack-years: 20 Tobacco: How many years used: 20 Electronic Cigarette Use: not used second hand exposure: No alcohol intake: never substance use type: marijuana and other details: THC gummy caffeine: Yes Type: coffee Number of servings: 2 what type of physical activity do you participate in: none seatbelt use: always do you feel safe at home: Yes ROS ROS ED Constitutional Constitutional ED: Reports other Details: Positive fatigue ; Denies chills or fever(s) ENT ENT ED: Denies sore throat Cardiovascular Cardiovascular: Denies chest pain, palpitations or racing heartbeat Respiratory/Chest Respiratory/Chest: Reports cough, dyspnea and other Details: Patient reports this is chronic in nature since she was diagnosed with pneumonia Gastrointestinal Gastrointestinal: Denies abdominal pain, diarrhea, nausea or vomiting Musculoskeletal Musculoskeletal: Reports myalgias Integumentary Denies rash Neurologic Neurologic: Reports weakness; Denies headache(s) Hematologic/Lymphatic Hematologic/Lymphatic: Denies easy bleeding or easy bruising EXAM Physical Exam Const Vital Signs: 10/11/25 21:42 10/11/25 21:47 10/11/25 23:41 Temperature 98.1 F Temperature Source Oral Pulse Rate 71 67 Respiratory Rate 21 H 16 Respiratory Effort Normal Respiratory Pattern Normal Blood Pressure 193/92 H 172/81 H Blood Pressure Mean 125 111 Pulse Ox 96 97 Oxygen Delivery Method Room Air Nasal Cannula Oxygen Flow Rate (L/min) 4 Positive well nourished, well developed and obese General Appearance ED: well developed; Negative for pallor Nutritional Appearance: obese HEENT Reports dry mucous membranes HEENT Narrative: Normocephalic atraumatic No tongue or lip swelling no oral lesions no airway edema or compromise; no secondary findings in the posterior pharynx to suggest infection Mucous membranes are dry and tacky Mouth ED: Yes dry mucous membranes Mouth: dry mucous membranes Eyes PERRL and EOMs intact bilaterally General Eye ED: Negative for scleral icterus Neck supple Neck Narrative: No nuchal rigidity or meningeal signs noted Resp Resp Narrative: Breath sounds are diminished throughout with diffuse expiratory wheeze and rhonchi in the bilateral bases Mild tachypnea is noted No nasal flaring retractions or accessory muscle use Cardio regular rate and regular rhythm Rate: other Other Details: Radial and carotid pulses are equal and symmetric GI normal to inspection, nondistended, normoactive bowel sounds, non-tender, non- distended and no masses GI Narrative: No voluntary guarding or rigidity or pulsatile mass No peritoneal signs Auscultation: normoactive bowel sounds Palpation: soft Extremity normal to inspection Neuro oriented x3, CN's II-XII intact bilaterally and no sensory deficits noted Sensorium / Orientation: alert Psych mental status grossly normal Skin no rashes or lesions noted General Skin Exam: Negative for jaundice or pallor MDM MDM MDM Narrative Medical decision making narrative: Patient arrived to the ER hypertensive but was satting in the mid 90s on 4 L nasal cannula oxygen which she states she has been on since her diagnosis of pneumonia and following up with pulmonology. With her known CPT 2 deficiency and report of diffuse myalgias there is high likelihood for a flare causing rhabdomyolysis. Secondary to this basic labs were obtained. Workup confirmed rhabdomyolysis with CPK level close to 4000. Her creatinine is elevated 2.05 but chart review reveals that her baseline creatinine is approximate 1.5-1.8 with known history of chronic kidney disease. Her sodium is slightly down at 130 but chart review reveals this is near baseline. Chloride is also slightly down at 93 but chart review also reveals this is baseline. Otherwise potassium magnesium phosphorus are within normal limits. The patient was started on D10 half-normal saline at the recommendation of her secondary social studies teacher. With administration of fluids her blood sugar held stable and she reported feeling somewhat better. At this time as she will take multiple days to resolve the CPT2 flare and rhabdomyolysis the hospitalist was consulted and the patient was admitted to the facility for continued treatment I did discuss the case with her secondary social studies teacher from [facility] and he agrees with the plan of care and feels comfortable with the patient staying here but states we can always contact them if needed for treatment regimen adjustment or transfer if patient fails to improve History & Record Review Discussion w/independent historian: Patient Lab Data Attestation: I reviewed the patient's lab results. Labs: Laboratory Results - last 24 hr 10/11/25 10/11/25 21:47 23:46 WBC 9.6 RBC 3.79 L Hgb 10.4 L Hct 32.6 L MCV 86.0 MCH 27.4 MCHC 31.9 L D RDW Std Deviation 45.0 H RDW Coeff of Esvin 14.3 Plt Count 297 MPV 9.9 Immature Gran % (Auto) 0.600 Neut % (Auto) 66.7 Lymph % (Auto) 22.7 [place] % (Auto) 7.2 Eos % (Auto) 2.2 Baso % (Auto) 0.6 Absolute Neuts (auto) 6.4 Absolute Lymphs (auto) 2.17 Nucleated RBC % 0 Sodium 130 L Potassium 5.0 Chloride 93 L Carbon Dioxide 26.3 Anion Gap 10 BUN 27 H Creatinine 2.05 H Estim Creat Clear Calc 32.30 L Est GFR (MDRD) Non-Af 26 L BUN/Creatinine Ratio 13.3 Glucose 91 Calcium 8.7 Phosphorus 3.9 Magnesium 1.9 Total Bilirubin 0.25 AST 137 H ALT 27 Alkaline Phosphatase 83 Total Creatine Kinase 3743 H Total Protein 7.7 Albumin 4.2 Globulin 3.5 Albumin/Globulin Ratio 1.2 POC Glucose 105 Management Discussion w/another healthcare provider: Hospitalist and General Dentist Discharge Plan Dx/Rx/DC Orders Clinical Impression: Rhabdomyolysis, CPT2 deficiency, CKD (chronic kidney disease) stage 4, GFR 15- 29 ml/min, Hypertension Disposition Disposition: [facility]
--- NOTE | 2025-10-12 00:36 | HP.PCM.HOS_ITS ---
HPI - General General Date of Admission: 10/12/25 Date of Service: 10/12/25 Chief Complaint: Diffuse muscle aches and pain for 2 days HPI Narrative LENNY SHAFER, is a 65 F who presents to ED with diffuse muscle pain and aches along with hardness and stiffness for the last 2 days after she was rushing and exerting herself. She has history of CPT-2, deficiency, Carnitine palmitoyltransferase II deficiency diagnosed by rheostat assembler, Dr. Bonner in [facility] in [place] sometime ago. She complained of muscle ache stiffness and lower extremity and in the back and paravertebral muscles. She was last admitted in July 2025 for similar complaint and was treated with D10 half-normal saline. ER physician Dr. Montano talked to rheostat assembler and advised same D10 half-normal saline. In ED, her CPK is elevated 3743. Her blood pressure high, BP 193/92, improved to 172/81. She said usually her blood pressure is 110/68. She was admitted in outside hospital about 2 weeks ago with pneumonia and was not treated with antibiotic as per organism. She was started on right antibiotic yesterday Levaquin 750 mg daily and supposed to complete 10 days total treatment. She follows [place] [facility] with Dr. Joseph. History of COPD stage III on Trelegy Ellipta and albuterol inhaler. She has history of smoking about 1 pack/day since teenage but quit in 07/10/2013. Recently she was found to have asthma component of COPD but sleep study was negative for sleep apnea. COUNT INCLUDES [facility] Medical History Generalized weakness Arthrosis of right acromioclavicular joint Tendinosis of right rotator cuff Impingement of right shoulder Right shoulder pain Myalgia Neck pain Low back pain Anxiety Depression Osteoporosis Smoker On home oxygen therapy COPD (chronic obstructive pulmonary disease) Hypertension Hx of ventricular tachycardia COPD (chronic obstructive pulmonary disease) Chronic hypoxemic respiratory failure Polyclonal gammopathy Bence Davila protein present in urine Obesity Nonsustained ventricular tachycardia Coronary artery disease Syncope Palpitations Thyroid cancer Syncope and collapse Essential hypertension Fatigue Cervical radiculopathy Smoking greater than 30 pack years Hypoxia Chronic diarrhea Recurrent falls Fatty liver FELISA (obstructive sleep apnea) CKD (chronic kidney disease) stage 4, GFR 15-29 ml/min Acquired hypothyroidism History of vitamin D deficiency Peripheral arterial disease Vertigo Polyneuropathy Insomnia Carnitine palmitoyltransferase II deficiency Vision problems Thyroid cancer GERD (gastroesophageal reflux disease) Osteoarthritis Hypothyroid Neuropathy Kidney disease Hypertension History of emotional problems Chronic bronchitis Home Medications ?Medication ?Instructions ?Recorded ?Last Taken ?Type Disability Placmadeleine #1 ea 02/07/23 Unknown Rx aspirin 81 mg tablet,delayed 81 mg PO DAILY heart heal th 04/18/23 07/17/25 History release (Adult Low Dose Aspirin) cholecalciferol (vitamin D3) 50 50 mcg PO DAILY vitami n 04/18/23 07/17/25 History mcg (2,000 unit) capsule ferrous sulfate 325 mg (65 mg 325 mg PO BID supplement 04/18/23 07/17/25 History iron) tablet levocarnitine 330 mg tablet 330 mg PO TID vitamin 04/0607/17/25 History compr.stocking,thigh,short,lrg #24 ea 02/29/24 Unknown Rx vitamin E (dl, acetate) 45 mg (100 45 mg PO QDAY suppl ement 01/06/25 07/17/25 History unit) capsule metoprolol tartrate 100 mg tablet 100 mg PO BID blood pressure #180 02/18/25 07/17/25 Rx tabs albuterol sulfate 90 mcg/actuation 2 puff inhalation Q 6H PRN copd 04/04/25 Unknown History aerosol inhaler lisinopril 20 mg tablet 10 mg PO QDAY hypertension 0 04/16/25 07/17/25 History duloxetine 60 mg capsule,delayed 60 mg PO DAILY mental health #90 04/17/25 07/17/25 Rx release caps nifedipine 30 mg tablet,extended 30 mg PO DAILY blood pressure #90 04/17/25 07/17/25 Rx release tabs omeprazole 40 mg capsule,delayed 40 mg PO DAILY for ac id reflux #90 04/17/25 07/17/25 Rx release caps albuterol sulfate 2.5 mg/3 mL 2.5 mg inhalation Q6 PRN wheezing 06/17/25 07/17/25 History (0.083 %) solution for nebulization lovastatin 10 mg tablet 10 mg PO QPM cholesterol #90 tabs 07/17/25 07/16/25 Rx OXYGEN - Supplemental ([facility] 07/18/25 Unknown History INFORMATIONAL USE ONLY) nebulizer kits #1 ea 08/26/25 Unknown Rx neublizer machine #1 ea 08/26/25 Unknown Rx levothyroxine 175 mcg tablet 175 mcg PO DAILY thyroid #90 tabs 09/05/25 Unknown Rx doxepin 100 mg capsule 100 mg PO QHS sleep #30 caps 09/07/25 Unknown Rx tizanidine 4 mg tablet See Rx Instructions .Route 1 11/07/24 Unknown Rx .COMPLEX spasms #150 tabs fluticasone fur. 200 mcg-umeclid 1 inh inhalation JOSE Y breathing 09/24/25 Unknown Rx 62.5 mcg-vilant 25 mcg #3 ea inhalat.powder (Trelegy Ellipta) guaifenesin 1,200 mg tablet, 1,200 mg PO BID #60 tabs 09/24/25 Unknown Rx extended release 12 hr (Mucinex) mepolizumab 100 mg/mL subcutaneous 100 mg subcut Q4W # 1 mL 09/24/25 Unknown Rx auto-injector (Nucala) levofloxacin 750 mg tablet 750 mg PO Q24H #10 tabs 03/30 Unknown Rx Allergy/AdvReac Type Severity Reaction Status Date / Time Penicillins Allergy Unknown Unknown Verified 10/11/25 21:46 [id number] (From AdvReac Severe Diarrhea Verified 10/11/25 21:46 Ajovy Syringe) vancomycin AdvReac Rash Verified 10/11/25 21:46 Family History Mother CVA (cerebral vascular accident) Heart disease Arthritis Lupus Father Myocardial infarction Hypertension Brother Colon cancer Brother Colon cancer Brother Cancer stomach Sister Seizures Grandfather Myocardial infarction Grandmother Myocardial infarction Surgical History History of cholecystectomy Cataract extraction status History of surgical procedure H/O thyroidectomy S/P cholecystectomy History of surgical procedure H/O wrist surgery History of repair of rotator cuff History of hysterectomy Hx of total knee replacement Social History household members: family housing: apartment current occupational status: unemployed Smoking Status: Former smoker quit date: 07/10/13 pack-years: 20 Tobacco: How many years used: 20 Electronic Cigarette Use: not used second hand exposure: No alcohol intake: never substance use type: marijuana and other details: THC gummy caffeine: Yes Type: coffee Number of servings: 2 what type of physical activity do you participate in: none seatbelt use: always do you feel safe at home: Yes ROS ROS Narrative Constitutional: Reports acute onset of fatigue and weakness. No fever. HEENT: Reports systems reviewed and no addt'l complaints, except as documented Respiratory/Chest: Recent diagnosis of pneumonia and COPD flare, recovering. On antibiotic Levaquin admission HPI. CVS: Denies chest pain or tightness Gastrointestinal: Denies coffee ground emesis, hematemesis or vomiting Genitourinary: Denies burning urination or new urinary tract symptoms Musculoskeletal: As described in HPI. Neurologic: Denies seizure-like symptoms. skin: No ulcer. No rash Endocrinology: Reports systems reviewed and no addt'l complaints, except as documented Hematologic/Lymphatic: Reports systems reviewed and no addt'l complaints, except as documented Rest 14 ROS are negative except as mentioned in HPI Vital Signs Vital Signs Vital Signs: 10/11/25 21:42 10/11/25 21:47 10/11/25 23:41 Temperature 98.1 F Temperature Source Oral Pulse Rate 71 67 Respiratory Rate 21 H 16 Respiratory Effort Normal Respiratory Pattern Normal Blood Pressure 193/92 H 172/81 H Blood Pressure Mean 125 111 Pulse Ox 96 97 Oxygen Delivery Method Room Air Nasal Cannula Oxygen Flow Rate (L/min) 4 Weight Weight: 235 lb Body Mass Index (BMI) 39.1 Physical Exam Narrative General: Alert, Oriented x3, Cooperative. BMI 39.1 [place] per square meter obesity grade 2 HEENT: Atraumatic, PERRLA, EOMI, Normocephalic. Oral: No Gingival or Mucosal Lesions/ Ulcerations Neck: Supple, No JVD, Negative Carotid Bruits Chest wall/Lungs: Air entry diminished in bilateral lung bases. Mild bilateral expiratory rhonchi Cardiovascular: Regular rate and rhythm, Normal S1,S2, No M/G/R Abdomen: Bowel Sounds Present, Soft, Non Tender, Non-Distended : No dysuria. No renal angle tenderness. No suprapubic tenderness. Extremities: Mild subtle nonpitting edema, Capillary Refill Less than 3 Seconds Skin: No rashes, No breakdown Musculoskeletal: Muscle tenderness present in thighs and calf. Mild stiffness, ROM restricted at knees and hip joints. Neurological: Cranial nerves II-XII grossly intact, DTR 2+/4. No acute focal neurological deficit. Psych/Mental Status: Normal Affect, Appropriate. Results Lab / Micro Data 10/11/25 21:47 10/11/25 21:47 Labs: Laboratory Results - last 24 hr 10/11/25 21:47: WBC 9.6, RBC 3.79 L, Hgb 10.4 L, Hct 32.6 L, MCV 86.0, MCH 27.4, MCHC 31.9 L D, RDW Std Deviation 45.0 H, RDW Coeff of Esvin 14.3, Plt Count 297, MPV 9.9, Immature Gran % (Auto) 0.600, Neut % (Auto) 66.7, Lymph % (Auto) 22.7, [place] % (Auto) 7.2, Eos % (Auto) 2.2, Baso % (Auto) 0.6, Absolute Neuts (auto) 6.4, Absolute Lymphs (auto) 2.17, Nucleated RBC % 0, Sodium 130 L, Potassium 5.0, Chloride 93 L, Carbon Dioxide 26.3, Anion Gap 10, BUN 27 H, Creatinine 2.05 H, Estim Creat Clear Calc 32.30 L, Est GFR (MDRD) Non-Af 26 L, BUN/Creatinine Ratio 13.3, Glucose 91, Calcium 8.7, Phosphorus 3.9, Magnesium 1.9, Total Bilirubin 0.25, AST 137 H, ALT 27, Alkaline Phosphatase 83, Total Creatine Kinase 3743 H, Total Protein 7.7, Albumin 4.2, Globulin 3.5, Albumin/Globulin Ratio 1.2 10/11/25 23:46: POC Glucose 105 Assessment & Plan Assessment/Plan (1) Rhabdomyolysis: (2) CPT2 deficiency: (3) Hypertensive urgency: PLAN: Plan This is a 65-year-old female being admitted for generalized muscle pain, and stiffness due to history of CPT 2 deficiency and flareup after recent exertion 1. Acute rhabdomyolysis with CPK deficiency and flareup: Patient is diagnosed with CPT-2 deficiency long time ago and was last admitted in July 2025. Admitted to PCU. IV fluid D10 half-normal saline as per rheostat assembler. Patient is not supposed to have NSAIDs because of CKD therefore ordered Tylenol and oxycodone as needed for pain control. She is also tizanidine at home and discontinued. Continue with home levocarnitine, and vitamin E 2. COPD/asthma overlap stage III with recent pneumonia: Patient has been treated for COPD exacerbation and her breathing is on baseline. Currently not in exacerbation. Started on Levaquin 750 mg yesterday and supposed to continue for 9 more days. 3. Chronic hypoxic respiratory failure: Patient was increased from 2 L to 4 L oxygen about 2 to 3 months ago. 4. Hypertensive urrgency: In triage, her blood pressure high, BP 193/92, improved to 172/81. On lisinopril, metoprolol to tartrate, nifedipine continued. IV labetalol as needed for SBP more than 180 mmHg and IV as needed hydralazine ordered. She said usually her blood pressure is 110/68. 5. CAD/PAD history of NSVT: Continue metoprolol. Currently heart rate is controlled with no chest pain. Continue baby aspirin 6. Dyslipidemia: Hold lovastatin. 7. Hypothyroidism status post thyroidectomy: Continue with Synthroid. TSH and free T4 ordered for tomorrow a.m. 8. CKD 3b: Gradual worsening of creatinine from 1.37-1.81 from July to October 30. Admitting BUN/creatinine 27/2.05. Estimated creatinine clearance 32 mL/min. Monitor kidney function 9. Chronic iron-deficiency anemia: H&H 10.4/32.6% on baseline. Continue ferrous sulfate 10. Chronic anxiety/depression: On doxepin and duloxetine continued 11. GERD: On omeprazole continued. DVT prophylaxis, high risk: Lovenox 30 mg subcu daily adjusted to creatinine clearance. Living will/advanced directive/end of life care: Patient does have living will or advanced directive. After discussion of benefits/risks procedures involved with full code, DNR CC arrest and DNR CC, the patient opted for full code. Patient does want artificial life support including intubation, tube feed, ventilator and/chest compression, central venous catheter, vasopressor and DC shock if needed. She said she is also listed for organ donation with organ donor bank. Total time spent in [id number] encounter in discussion of advanced directive 17 minutes. Charges/Coding Visit Charges Inpatient E&M: 71265 Init Hosp L3 Procedures Hospitalists Procedures: 26454 Advncd Care Plan 30 Min
--- OUTSIDE RECORDS SUMMARY | 2025-10-12 00:42 | XMS RPT_ITS | CCD ---
Author Organization [facility] Care Team Providers Care Towel Sorter Name Role Phone Elana Pena Unavailable [phone] Elana Pena Unavailable [phone] Unavailable Unavailable Unavailable ELANA PENA Unavailable Unavailable MANUELITO MORALES Unavailable Unavailable MANUELITO MORALES A Unavailable Unavailable ELANA PENA Unavailable Unavailable DENNIS ATKINS Unavailable Unavailable BETY HERNANDEZ Unavailable Unavailable BETY HERNANDEZ Unavailable Unavailable Oscar Vinson A Admitting Unavailable Cameron Oscar A Attending Unavailable Tom, Tyshawn K Admitting Unavailable Tom, Tyshawn K Attending Unavailable Inge, Bahzat Wayne Admitting Unavailab le Inge, Bahzat Wayne Attending Unavailab le Vadada, Andre C Admitting Unavailable Vadada, Andre C Attending Unavailable Jonathan Rutherford Admitting Unavailable Jonathan Rutherford Attending Unavailable Ezequiel, Khaldoon Wajeeh Admitting Unavail able Ezequiel, Khaldoon Wajeeh Attending Unavail able Vaibhav Naranjo Attending Unavailable Vaibhav Naranjo Admitting Unavailable Vaibhav Naranjo Admitting Unavailable Vaibhav Naranjo Attending Unavailable Ezequiel, Khaldoon Wajeeh Admitting Unavail able Ezequiel, Khaldoon Wajeeh Attending Unavail able Kailee Louis Admitting Unavailable Kailee Louis Attending Unavailable Vadada, Nadre C Admitting Unavailable Vadada, Andre C Attending Unavailable Bety Hernandez Admitting Unavailable Bety Hernandez Attending Unavailable Elana Pena Primary Care Provider [phone] Elana Pena Unavailable Elana Pena Primary Care Provider [phone] Becky Elana Ramírez Primary Care Provider Becky Elana Ramírez Unavailable Jonathan Rutherford. Primary Care Provider Elana Pena DO Unavailable Wilfridlinger CHIEF OF ANESTHESIOLOGY, Jonathan L. Primary Care Provider [phone] Hellinger CHIEF OF ANESTHESIOLOGY, Jonathan L. Unavailable Elana Pena DO Unavailable Hellinger CHIEF OF ANESTHESIOLOGY, Jonathan L. Unavailable Hellinger CHIEF OF ANESTHESIOLOGY, Jonathan L. Primary Care Provider [phone] Hellinger CHIEF OF ANESTHESIOLOGY, Jonathan L. Unavailable Dr. Rusty Dozier Attending Provider Alexandre OLIVAREZP Jonathan Lee Primary Care Provider Hel[facility] MANAGER SCHEDULING, MANAGER SCHEDULING-C Jonathan Referring Provider [phone] Dr. Jennifer Gordon Primary Care Provider Dr. Jennifer Gordon Attending Provider [phone] Dr. Oscar Arshad Attending Provider [facility] MANAGER SCHEDULING, MANAGER SCHEDULING-C Jonathan Referring Provider [phone] Dr[address] Jennifer Gordon Primary Care Provider Dr. Jennifer Gordon Attending Provider [phone] Dr. Oscar Arshad Attending Provider [phone] Rusty Dozier Referring Provider [phone] Dr. Rusty Dozier Attending Provider [phone] Dr. Jennifer Gordon Referring Provider [phone] Dr. Rusty Dozier Referring Provider Dr. Jennifer Gordon Primary Care Provider Dr. Jennifer Gordon Referring Provider Giovanna MANAGER SCHEDULING, MANAGER SCHEDULING-C Sasha Attending Provider Aleisha Chisholm Attending Provider [...] Dr. Jennifer Gordon Referring Provider [phone] [facility] Jonathan MELCHOR Primary Care Provider [facility] Jonathan MELCHOR Unavailable Dr. Jennifer Gordon [...] Provider Barrera HUNTER, Dr. Espinal Attending Provider [phone] Barrera HUNTER, Dr. Espinal Emergency Provider Hui Roberts Attending Provider [phone] Dorie HUNTER, Dr. Charles Attending Provider [phone] Cary Jacobsen MD Attending Provider [phone] Hui Roberts Referring Provider [phone] Heidi HUNTER, Dr. Rodriugez Primary Care Provider [phone] Heidi HUNTER, Dr. Rodriguez Referring Provider Cary Jacobsen MD Referring Provider [phone] Wayne MANAGER SCHEDULING-CColette Attending Provider Dr. Jennifer Gordon MD Attending [...] HUNTER, Dr. Rodriguez Primary Care Provider [phone] Heidi HUNTER, Dr. Rodriguez Referring Provider Dorie HUNTER, Dr. Charles Attending Provider [phone] Hui Roberts Attending Provider Jacoby HUNTER, Dr. Ojeda Attending Provider Heidi HUNTER, Dr. Rodriguez Primary Care Provider [phone] Cary Jacobsen MD Attending Provider [phone] Dr. Jennifer Gordon MD Referring Provider Hui Roberts Attending Provider Dorie HUNTER, Dr. Charles Attending Provider [phone] Heidi HUNTER, Dr. Rodriguez Primary Care Provider [phone] Cary Jacobsen MD Attending Provider [phone] Wayne MANAGER SCHEDULING-C, Colette Wetzel Referring Provider Tatiana MANAGER SCHEDULING-C, Mihaela Attending Provider [phone] Heidi HUNTER, Dr. Rodriguez Primary Care Provider [phone] Dr. Jennifer Gordon MD Referring Provider Ungbrandonr MANAGER SCHEDULING-C, Mihaela Referring Provider Gunnar HUNTER, Dr. Durbin [...] Heidi HUNTER, Dr. Rodriguez Referring Provider Giovanna MANAGER SCHEDULING-C, Sasha Attending Physician Wayne MANAGER SCHEDULING-C, Colette Wetzel Attending Physician Tatiana MANAGER SCHEDULING-C, Mihaela Attending Physician Gunnar HUNTER, Dr. Durbin Emergency Department Physician Deshpande DO, Dr. Mcwilliams Admitting Physician Opal vailable Deshpande DO, Dr. Mcwilliams Nurse Practitioner Unav ailable Erwin HUNTER, Dr. Kaur Attending Physician Rachael HUNTER, Dr. Arnel Beauchamp Nurse Practitioner Rachael HUNTER, Dr. Arnel Beauchamp Attending Physician Erwin HUNTER, Dr. Kaur Nurse Practitioner NO, PHYSICIAN Primary Care Unavailable ARNEL ANN Attending Unava ilable Heidi, Jennifer Primary Care Unavailable Vincent Hood Attending Unavailable Elana Deshpande Admitting Unavailable Elana Deshpande Consulting Unavailable Arnel Cano Consulting Unavailable Heidi, Jennifer Referring Unavailable Woodstock, Jennifer Primary Care Unavailable Woodstock, Jennifer Attending Unavailable Heidi, Jennifer Referring Unavailable Heidi, Jennifer Attending Unavailable [place]stock, Jennifer Primary Care Unavailable Heidi, Jennifer Primary Care Unavailable Teddy Rust Attending Unavailable [place], Jennifer Primary Care Unavailable Giovanna JIMENEZ, Sasha Attending Unavailable Sasha Heredia NP Referring Unavailable [place]stock, Jennifer Primary Care Unavailable Vincent Hood Attending Unavailable Elana Deshpande Consulting Unavailable Elana Deshpande Admitting Unavailable Arnel Cano Consulting Unavailable Vincent Hood Consulting Unavailable Arnel Cano Attending Unavailable Cary Jacobsen Attending Unavailable Woodstock, Jennifer Referring Unavailable Heidi, Jennifer Primary Care Unavailable Cary Jacobsen Referring Unavailable Heidi, Jennifer Primary Care Unavailable Cary Jacobsen Attending Unavailable Woodstock, Jennifer Primary Care Unavailable Melvin Oshea Attending Unavailable Heidi, Jennifer Referring Unavailable Woodstock, Jennifer Primary Care Unavailable Cary Jacobsen Attending Unavailable Elana Deshpande Attending Unavailable Hui Whitehead Attending Unavailable Heidi, Jennifer Referring Unavailable Woodstock, Jennifer Primary Care Unavailable Hui Whitehead Attending Unavailable Heidi, Jennifer Referring Unavailable Woodstock, Jennifer Primary Care Unavailable Heidi, Jennifer Attending Unavailable Heidi, Jennifer Referring Unavailable Heidi, Jennifer Primary Care Unavailable Woodstock, Jennifer Referring Unavailable [place], Jennifer Primary Care Unavailable Rusty Dozier Attending Unavailable [place], Jennifer Referring Unavailable Mihaela Simpson Attending Unavailable Heidi, Jennifer Primary Care Unavailable Melvin Oshea Attending Unavailable Heidi, Jennifer Primary Care Unavailable Woodstock, Jennifer Primary Care Unavailable Rusty Dozier Attending Unavailable Rusty Dozier Referring Unavailable Colette Black Attending Unavailable Colette Black Referring Unavailable [place], Jennifer Primary Care Unavailable Colette Black Attending Unavailable Colette Black Referring Unavailable Heidi, Jennifer Primary Care Unavailable Cristian Joseph Attending Unavailable Flavia Shine Attending Unavailable [place], Jennifer Referring Unavailable Heidi, Jennifer Primary Care Unavailable Colette Black Attending Unavailable [place], Jennifer Primary Care Unavailable [place], Jennifer Referring Unavailable Heidi, Jennifer Referring Unavailable Woodstock, Jennifer Attending Unavailable Heidi, Jennifer Primary Care Unavailable Colette Black Attending Unavailable Heidi, Jennifer Referring Unavailable Woodstock, Jennifer Primary Care Unavailable Woodstock, Jennifer Referring Unavailable [place]stock, Jennifer Primary Care Unavailable Cary Jacobsen Attending Unavailable [place], Jennifer Referring Unavailable Heidi, Jennifer Primary Care Unavailable Rusty Dozier Attending Unavailable Dorie, Melvin Attending Unavailable [place], Jennifer Primary Care Unavailable Ventura, Hui Attending Unavailable Ventura, Hui Referring Unavailable Woodstock, Jennifer Primary Care Unavailable Heidi, Jennifer Primary Care Unavailable Baddour, Rusty Attending Unavailable Baddour, Rusty Referring Unavailable Woodstock, Jennifer Primary Care Unavailable Ungerer, Mihaela Attending Unavailable Ungerer, Mihaela Referring Unavailable RENE LUU Attending Unavailable NO, PHYSICIAN Primary Care Unavailable NO, PHYSICIAN Primary Care Unavailable MITRARAJONATAN KRAMER Attending Unavaila ble NO, PHYSICIAN Primary Care Unavailable URADU, CB TRINIDAD Attending Unavailable URADU, CB KENYONI Referring Unavailable NO, PHYSICIAN Primary Care Unavailable INGEJOSSIE HAMILTON Attending Unavailable [facility] Consulting Unavai lable SUSAN THAKUR Admitting Unavailable NO, PHYSICIAN Primary Care Unavailable JOSSIE ALCAZAR Attending Unavailable SAL[place], AHMED Admitting Unavailable [facility] Consulting Unavai lable Allergies Allergy Classification Reported Allergen(s) Allergy Type Date of Onset Reaction(s) Facility Penicillins (antibiotic) (1 source) Penicillins Drug Allergy 5 Unknown, Other (See Comments) [facility] (17 sources) naproxen Propensity to adverse reactions to drug 7 [facility] Work Phone: (20 sources) Penicillins; Translations: [PENICILLINS] Propensity to adverse reactions to drug 5 Unknown, Other (See Comments) [facility] Work Phone: Comment on above: allerigic when a chi ld (1 source) Penicillins Drug allergy (disorder) [facility] (1 source) Penicillins Propensity to adverse reactions to drug 6 [facility] (17 sources) Penicillins Propensity to adverse reactions to drug 5 Unknown, Other (See Comments) [facility] (20 sources) Penicillins Propensity to adverse reactions to drug 5 Unknown, Other (See Comments) [facility] (13 sources) Penicillins Propensity to adverse reactions to drug 5 Unknown, Other (See Comments) [facility] (20 sources) Vancomycin; Translations: [VANCOMYCIN] Drug Allergy 5 Rash [facility] (11 sources) fremanezumab Drug Allergy 5 Diarrhea [facility] (1 source) Penicillins Drug allergy (disorder) 5 [facility] (1 source) Vancomycin Drug Allergy 5 [facility] (1 source) fremanezumab-vfr m Drug allergy (disorder) 5 [facility] Medications Current Medications Medication Drug [...] .MEDSUPPLY February 07, 2023 12:00am Expiration 02/07/2026 Tfgywzwatwn-Bgomdrnxh-Zydnuw er (20 sources) Start: 04-04-2025 Start: 04-04-2025 Fluticasone-Um eclidin-Vilanter (Trelegy Ellipta) 200-62.5-25 mcg blister with device Active 1 NMA INHALATION DAILY 3 April 04, 2025 2:17pm Obstructive sleep apnea syndrome Obstructive sleep apnea (adult) (pediatric) breathing Start: 04-04-2025 Fluticasone-Um eclidin-Vilanter (Trelegy Ellipta) 200-62.5-25 mcg blister with device Active 1 NMA INHALATION DAILY April 04, 2025 2:17pm Start: 11-07-2024 End: 04-04-2025 Icudamptxee-Gpswwvycu-Lfmmlc er (Trelegy Ellipta) 200-62.5-25 mcg blister with device Discontinued 1 NMA INHALATION DAILY 3 November 07, 2024 11:37am April 04, 2025 2:18pm Obstructive sleep apnea syndrome Obstructive sleep apnea (adult) (pediatric) breathing Start: 11-07-2024 End: 04-04-2025 Twjwveprwwi-Dpuiikgxy-Taftgb er (Trelegy Ellipta) 200-62.5-25 mcg blister with device Discontinued 1 NMA INHALATION DAILY November 07, 2024 11:37am April 04, 2025 2:18pm Start: 11-07-2024 Fluticasone-Um eclidin-Vilanter (Trelegy Ellipta) 200-62.5-25 mcg blister with device Active 1 NMA INHALATION DAILY November 07, 2024 11:37am Start: 07-17-2024 End: 11-07-2024 Edudwyjpxir-Vikizvseu-Vxbacc er (Trelegy Ellipta) 200-62.5-25 mcg blister with device Discontinued 1 NMA INHALATION DAILY 3 July 17, 2024 1:44pm November 07, 2024 11:37am Obstructive sleep apnea syndrome Obstructive sleep apnea (adult) (pediatric) breathing Start: 07-17-2024 End: 11-07-2024 Wstiefsoibp-Qoeouqtvi-Fdeufu er (Trelegy Ellipta) 200-62.5-25 mcg blister with device Discontinued 1 NMA INHALATION DAILY July 17, 2024 1:44pm November 07, 2024 11:37am Start: 02-12-2024 End: 07-17-2024 Aerpwpecitq-Vlglqnbgu-Ikociv er (Trelegy Ellipta) 200-62.5-25 mcg blister with device Discontinued 1 NMA INHALATION DAILY 3 February 12, 2024 8:20am July 17, 2024 1:44pm Obstructive sleep apnea syndrome Obstructive sleep apnea (adult) (pediatric) breathing Start: 02-12-2024 End: 07-17-2024 Ojfyxfixbem-Napzlaaew-Ttmfcg er (Trelegy Ellipta) 200-62.5-25 mcg blister with device Discontinued 1 NMA INHALATION DAILY February 12, 2024 8:20am July 17, 2024 1:44pm Start: 02-12-2024 Fluticasone-Um eclidin-Vilanter (Trelegy Ellipta) 200-62.5-25 mcg blister with device Active 1 INH INHALATION DAILY February 12, 2024 8:20am Start: 02-24-2023 End: 02-12-2024 Vhyuidmdplj-Vrneessvb-Ygferf er (Trelegy Ellipta) 200-62.5-25 mcg blister with device Discontinued 1 NMA INHALATION DAILY 3 February 24, 2023 2:38pm February 12, 2024 8:20am Obstructive sleep apnea syndrome Obstructive sleep apnea (adult) (pediatric) Start: 02-24-2023 End: 02-12-2024 Jlycvgugmuu-Ymvvxbome-Dkriwp er (Trelegy Ellipta) 200-62.5-25 mcg blister with device Discontinued 1 NMA INHALATION DAILY February 24, 2023 2:38pm February 12, 2024 8:20am Start: 02-24-2023 End: 02-12-2024 Zxlfbxaxvzm-Dtvwsieix-Txzczx er (Trelegy Ellipta) 200-62.5-25 mcg blister with [...] 24, 2023 2:38pm Start: 02-24-2023 End: 02-24-2023 Opwxzdwkaii-Qjrqouuxq-Yghfua er (Trelegy Ellipta) 200-62.5-25 mcg blister with device Discontinued 1 NMA INHALATION DAILY February 24, 2023 12:00am February 24, 2023 2:38pm Start: 02-24-2023 End: 02-24-2023 Dxnizhytafp-Lrzorvqcb-Xyvrla er (Trelegy Ellipta) 200-62.5-25 mcg blister with device Discontinued 1 INH INHALATION DAILY February 23, 2023 11:00pm February 24, 2023 1:38pm Start: 02-24-2023 End: 02-24-2023 Xvwfckclwwb-Jdyevhsmo-Rduzja er (Trelegy Ellipta) 200-62.5-25 mcg blister with device Discontinued 1 INH INHALATION DAILY February 24, 2023 12:00am February 24, 2023 2:38pm qmkvdtojvtb-vqxvfvwau-gtqdag er (Trelegy Ellipta) 200-62.5-25 mcg DsDv (20 sources) Start: 12-30-2021 vzbzkfpajxb-tmejfwmuk-tapfeb er (Trelegy Ellipta) 200-62.5-25 mcg DsDv Inhale [...] with activity . 0 Oxygen - Supplemental ([facility] Informational Use Only) gas (2 sources) Start: 07-18-2025 Oxygen - Suppl emental ([facility] Informational Use Only) gas Active 0 [...] Every 12 hours scheduled, First dose on [place] 02/16/25 at 1230, For 5 days, Indication: [...] sources) Start: 01-06-2025 take 1 capsule by [facility] once daily Completed/Discontinued Medications Medication Drug Class(es) [...] 06/18/2018 Active take 2 tablets by mo coh once daily amLODIPine (NORVASC) 5 MG tablet [...] Start: 04-18-2023 take 1 capsule by mo [facility] once daily Start: 03-08-2023 End: 04-18-2023 take [...] CHEW. docusate sodium 50 mg / sennosides, [facility] 8.6 mg oral tablet (1 source) Start: [...] at bedtime. Active take 1 capsule by [facility] once daily as needed for sleep doxepin [...] NaCl (DILAUDID) 15 mg/30 mL (0.5 mg/mL) MEDICAL INFORMATION SPECIALIST (1 source) Start: 03-30-2022 End: 03-31-2022 [...] June 17, 2024 4:17pm Start: 12-11-2023 Hyoscyamine Crisitna lfate Active MG PO December 11, 2023 [...] Intravenous, Once in imaging, contrast, Starting on [facility] 02/13/25 at 1705, For 1 dose [...] oral tablet (20 sources) Dihydropyridine Calcium Channel Asira Start: 02-14-2025 End: 02-18-2025 take 30 mg [...] For 2 doses, Anginal pain, may repeat S2clyumsp x2, then notify physician. DO NOT CRUSH [...] PO daily April 04, 2025 12:00am sennosides, [facility] 8.6 mg oral tablet (2 sources) Start: [...] kimber garry 1,000 mL sodium zirconium cyclosilicate 59331 mg powder for oral suspension (1 source) [...] kidney disease) stage 3, GFR 30-59 ml/min ([facility])] Onset: 06-17-20 Chronic Chronic kidney disease (2 [...] Coronary arteriosclerosis; Translations: [Atherosclerotic heart disease of [place] coronary artery without angina pectoris] 04-18-2023 Chronic [...] Acute and unspecified renal failure (20 sources) Jxkwv-ax-hccidmf renal failure; Translations: [Acute kidney failure, unspecified] [...] BY RENE LUU, ON 09/12/2025 04:15:26 Normal [facility] TROPONIN X 2 (NOW AND REPEAT IN 2 HOURS)on 09-12-2025 TROPONIN T DELTA CHANGE INTERPRETATION Probable non-acute cardiac injury or late presentation of acute injury. Normal [facility] Comment on above: Performed By: #### [id number] #### LAB [address] [address] Maurice Coello M.D. [id number] TROPONIN T DELTA DIFFERENCE -1 ng/L Normal < = -/+ 7 change [facility] Comment on above: Performed By: #### 4 [id number] #### LAB [address] [address] Maurice Coello M.D. [id number] TROPONIN T NG/L 17 ng/L Off scale high <=14 [facility] Comment on above: Performed By: #### 4 [id number] #### LAB [address] [address] Maurice Coello M.D. [id number] BASIC METABOLIC PANELon 0 Anion gap [Moles/Vol] 13 mmol/L Normal 10-[address] [facility] Comment on above: Order Comment: [facility] has implemented the eGFR calculation approach that does not have a coefficient for race that conforms to the NKF-ASN Task Force Recommendations. Performed By: #### [id number] #### LAB [address] [address] Maurice Coello M.D. [id number] Calcium [Mass/Vol] 9.2 mg/dL Normal 8.4-10.2 [facility] Comment on above: Order Comment: [facility] has implemented the eGFR calculation approach that does not have a coefficient for race that conforms to the NKF-ASN Task Force Recommendations. Performed By: #### 4 [id number] #### LAB [address] [place], [place] [address] Maurice Coello M.D. [id number] Chloride [Moles/Vol] 95 mmol/L Low 98-108 [facility] Comment on above: Order Comment: [facility] has implemented the eGFR calculation approach that does not have a coefficient for race that conforms to the NKF-ASN Task Force Recommendations. Performed By: #### 4 [id number] ####[facility] [address], [place] [address] Maurice Coello M.D. [id number] Creatinine [Mass/Vol] 1.45 mg/dL High 0.60-1.[address] [facility] Comment on above: Order Comment: [facility] has implemented the eGFR calculation approach that does not have a coefficient for race that conforms to the NKF-ASN Task Force Recommendations. Performed By: #### 4 [id number] #### LAB [address] [place], [place] [address] Maurice Coello M.D. [id number] EGFR 40 mL/min/1.73 m2 Low >=60 [facility] Comment on above: Order Comment: [facility] has implemented the eGFR calculation approach that does not have a coefficient for race that conforms to the NKF-ASN Task Force Recommendations. Result Comment: Ericka mated GFR was calculated using the 2020 CKD-EPI creatinine equation. Performed By: #### 4 [id number] ####[facility] [address] [place], [place] [address] Maurice Coello M.D. [id number] Glucose [Mass/Vol] 98 mg/dL Normal 65-99 [facility] Comment on above: Order Comment: [facility] has implemented the eGFR calculation approach that does not have a coefficient for race that conforms to the NKF-ASN Task Force Recommendations. Performed By: #### 4 [id number] #### LAB [address] [address] Maurice Coello M.D. [id number] HCO3 (Bld) [Moles/Vol] 29 mmol/L Normal 21-32 [facility] Comment on above: Order Comment: [facility] has implemented the eGFR calculation approach that does not have a coefficient for race that conforms to the NKF-ASN Task Force Recommendations. Performed By: #### 4 [id number] #### LAB [address] [address] Maurice Coello M.D. [id number] Potassium [Moles/Vol] 4.6 mmol/L Normal 3.5-5.[address] [facility] Comment on above: Order Comment: [facility] has implemented the eGFR calculation approach that does not have a coefficient for race that conforms to the NKF-ASN Task Force Recommendations. Performed By: #### 4 [id number] #### LAB [address] [address] Maurice Coello M.D. [id number] Sodium [Moles/Vol] 132 mmol/L Low 135-145 [facility] Comment on above: Order Comment: [facility] has implemented the eGFR calculation approach that does not have a coefficient for race that conforms to the NKF-ASN Task Force Recommendations. Performed By: #### 4 [id number] ####[facility] [address] [address] Maurice Coello M.D. [id number] Urea nitrogen [Mass/Vol] 13 mg/dL Normal 8-25 [facility] Comment on above: Order Comment: [facility] has implemented the eGFR calculation approach that does not have a coefficient for race that conforms to the NKF-ASN Task Force Recommendations. Performed By: #### 4 [id number] #### LAB [address] [address] Maurice Coello M.D. [id number] Urea nitrogen/Creatinine [Mass ratio] 9.0 mg/mg Low 10.0-20.0 [facility] Comment on above: Order Comment: [facility] has implemented the eGFR calculation approach that does not have a coefficient for race that conforms to the NKF-ASN Task Force Recommendations. Performed By: #### 4 [id number] #### LAB [address] [place] [address] Maurice Coello M.D. [id number] CBC WITH AUTO DIFFERENTIALon 09-11-2025 AUTO NRBC 0.0 % [facility] Comment on above: Performed By: #### L [id number] #### LAB [address] [place] [address] Maurice Coello M.D. [id number] AUTO NRBC ABS COUNT 0.00 K/mcL Normal 0.00-0.00 [facility] Comment on above: Performed By: #### L [id number] #### LAB [address] [place] [address] Maurice Coello M.D. [id number] BASOPHILS ABSOLUTE COUNT 0.05 K/mcL Normal 0.00-0.30 [facility] Comment on above: Performed By: #### L [id number] #### LAB [address] [place] [address] Maurice Coello M.D. [id number] Basophils/100 WBC (Bld) 0.5 % Normal [facility] [place] [facility] Comment on above: Performed By: #### L [id number] #### LAB [address] [place] [address] Maurice Coello M.D. [id number] Eosinophils (Bld) [#/Vol] 0.17 10*3/uL Normal 0.00-0.50 [facility] Comment on above: Performed By: #### L [id number] #### LAB [address] [place] [address] Maurice Coello M.D. [id number] Eosinophils/100 WBC (Bld) 1.8 % [facility] Comment on above: Performed By: #### L [id number] #### LAB [address] [place] [address] Maurice Coello M.D. [id number] Erythrocyte distribution width (RBC) [Ratio] 14.0 % Normal 11.6-14.8 [facility] Comment on above: Performed By: #### L [id number] #### LAB [address] [address] Maurice Coello M.D. [id number] Hematocrit (Bld) [Volume fraction] 32.9 % Low 36.0-46.0 [facility] Comment on above: Performed By: #### L [id number] #### LAB [address] [place] [address] Maurice Coello M.D. [id number] Hemoglobin (Bld) [Mass/Vol] 9.8 g/dL Low 12.0-16.0 [facility] Comment on above: Performed By: #### L [id number] #### LAB [address] [place] [address] Maurice Coello M.D. [id number] IG ABSOLUTE 0.04 K/mcL Normal 0.00-0.30 [facility] Comment on above: Performed By: #### L [id number] #### LAB [address] [place] [address] Maurice Coello M.D. [id number] IG PERCENT 0.40 % Normal [facility] Comment on above: Result Comment: The IG parameter is the percentage of metamyelocytes, myelocytes and promyelocytes. An immature granulocyte count (IG) of 1% or more suggests the possibility of infection, an IG count of 3% is very likely related to an infection. Performed By: #### L [id number] #### LAB [address] [place] [address] Maurice Coello M.D. [id number] Lymphocytes (Bld) [#/Vol] 1.52 10*3/uL Normal 0.90-4.00 [facility] Comment on above: Performed By: #### L [id number] #### LAB [address] [place], [place] [id number] Maurice Coello M.D. [id number] Lymphocytes/100 WBC (Bld) 16.0 % Normal [facility] Comment on above: Performed By: #### L [id number] #### LAB [address] [address] Maurice Coello M.D. [id number] MCH (RBC) [Entitic mass] 26.6 pg Normal 26.0-34.0 [facility] Comment on above: Performed By: #### L [id number] #### LAB [address] [address] Maurice Coello M.D. [id number] MCV (RBC) [Entitic vol] 89.2 fL Normal 80.0-100.0 [facility] [place] [facility] Comment on above: Performed By: #### L [id number] #### LAB [address] [address] Maurice Coello M.D. [id number] MEAN CORPUSCULAR HEMOGLOBIN CONC 29.8 g/dL Low 31.0-37.0 [facility] Comment on above: Performed By: #### L [id number] #### LAB [address] [address] Maurice Coello M.D. [id number] Monocytes (Bld) [#/Vol] 0.65 10*3/uL Normal 0.30-0.90 [facility] Comment on above: Performed By: #### L [id number] #### LAB [address] [address] Maurice Coello M.D. [id number] Monocytes/100 WBC (Bld) 6.8 % Normal [facility] [place] [facility] Comment on above: Performed By: #### L [id number] #### LAB [address] [address] Maurice Coello M.D. [id number] NEUTROPHILS ABSOLUTE COUNT 7.06 K/mcL High 1.70-7.00 [facility] Comment on above: Performed By: #### L [id number] #### LAB [address] [address] Maurice Coello M.D. [id number] Neutrophils/100 WBC (Bld) 74.5 % Normal [facility] Comment on above: Performed By: #### L [id number] #### LAB [address] [address] Maurice Coello M.D. [id number] Platelet mean volume (Bld) [Entitic vol] 9.6 fL Normal 9.4-12.4 [facility] Comment on above: Performed By: #### L [id number] #### LAB [address] [address] Maurice Coello M.D. [id number] Platelets (Bld) [#/Vol] 230 10*3/uL Normal 150-400 [facility] Comment on above: Performed By: #### L [id number] #### LAB [address] [address] Maurice Coello M.D. [id number] RBC (Bld) [#/Vol] 3.69 10*6/uL Low 4.00-5.20 [facility] Comment on above: Performed By: #### L [id number] #### LAB [address] [address] Maurice Coello M.D. [id number] WBC (Bld) [#/Vol] 9.49 10*3/uL Normal 4.50-11.00 [facility] Comment on above: Performed By: #### L [id number] #### LAB [address] [place] [address] Maurice Coello M.D. [id number] COVID-19/INFLUENZA A,B MARIA DOLORES [place] 09-11-2025 SARS-CoV-2 (COVID-19) Ab IA Ql SARS-COV-2 (SOFIE) Not Detected INFLUENZA A (SFOIE) Not Detected INFLUENZA B (SOFIE) Not Detected Normal Not Detected [facility] Comment on above: Performed By: #### L [id number] #### LAB [address] [place] [address] Maurice Coello M.D. [id number] CPKon 09-11-2025 CPK 251 U/L High 40-170 [facility] Comment on above: Performed By: #### 4 [id number] #### LAB [address] [place], [place] [address] [address] [id number] CT PULMONARY ARTERIESon 11-0 CT PULMONARY ARTERIES [...] MonSep 12, 2025 2:03:37 AM EST Normal [facility] Comment on above: Order Comment: Injur y/Trauma [...] D-DIMER QUANTITATIVE 1.31 mcg/mL FEU High 0.27-0.49 [facility] Comment on above: Order Comment: A D-d [...] #### 4 [id number] #### MH LAB [address] [id number] Maurice Coello M.D. [id number] ED Prov Noteon 09-11-2025 ED Prov Note [facility] EMERGENCY DEPARTMENT ATTENDING NOTE: NAME: Radha Shafer CSN: [id number] 65 y.o. PCP: No, Physician History: Chief [...] ALTEMEIER PROCEDURE; Surgeon: Jada Vargas MD; Location: [facility] Main OR; Service: Colorectal CARDIAC CATHETERIZATION N/A 09/26/2022 Procedure: Coronary Angiogram; Surgeon: Tor Long MD; Location: [facility]; Service: Cardiovascular CARDIOVASCULAR STRESS TEST CHOLECYSTECTOMY COLONOSCOPY with biopsies COLONOSCOPY N/A 02/17/2022 Procedure: COLONOSCOPY; Surgeon: Jada Vargas MD; Location: [facility] Endo; Service: Colorectal EGD N/A 08/15/2022 Procedure: ESOPHAGOGASTRODUODENOSC OPY WITH BIOPSY; Surgeon: Tyshawn Santos MD; Location: [facility]; Service: Gastroenterology GALLBLADDER HC LEFT HEART CATH N/A 09/26/2022 Procedure: Left Heart Cath; Surgeon: Tor Long MD; Location: [facility] [employer] [facility] [facility]; Service: Cardiovascular HYSTERECTOMY JOINT REPLACEMENT Left knee ORTHOPEDIC SURGERY r wrist surgery, left ankle, right rotator cuff ROTATOR CUFF REPAIR Right SIGMOIDOSCOPY FLEXIBLE N/A 06/23/2022 Procedure: SIGMOIDOSCOPY FLEXIBLE WITH BIOPSY; Surgeon: Tyshawn Santos MD; Location: [facility]; Service: Gastroenterology THYROIDECTOMY N/A 07/15/2015 Procedure: TOTAL THYROIDECTOMY; Surgeon: Lopez Alonso MD; Location: [facility] NEURO OR; Service: US ECHO TRANSTHORACIC [...] total) by mouth daily with breakfast . qpdmwngbnvu-xzoyrbulk-f ilanter (Trelegy Ellipta) 200-62.5-25 mcg DsDv Inhale [...] tablet Ronal (more content not included)... Normal [facility] NT PRO BNPon 09-11-2025 Natriuretic peptide B (Bld) [Mass/Vol] 621 pg/mL High 0-300 [facility] Comment on above: Order Comment: Injur y/Trauma or Illness?:Illness/Other How long have you had these symptoms (acute/chronic)?:Acute Reason for exam?:sob. Hx of COPD History of cancer?:unknown Surgeries, chemotherapy, or radiation?:cholecystectomy, hysterectomy, oophrectomy, left knee replacement Type of Exam?:Initial Additional signs and symptoms?:. Performed By: #### 4 [id number] #### LAB [address] [place], [place] [address] Maurice Coello M.D. [id number] POC VENOUS BLOOD GAS ONLY PA NELon 09-11-2025 BASE EXCESS, VENOUS 4.8 mmol/L High -2.0-2.0 [facility] FIO2 32 Normal [facility] HCO3 (Bld) [Moles/Vol] 30.8 mmol/L High 24.0-28.0 [facility] [place] [facility] Hematocrit (Bld) [Volume fraction] 30.0 % Low 36.0-46.0 [facility] Hemoglobin (Bld) [Mass/Vol] 10.0 g/dL Low 12.0-16.0 [facility] LITER FLOW 3 Normal [facility] Oxygen saturation in Blood 74.4 % High 40.0-70.0 [facility] PCO2 VENOUS 52.0 mm Hg High 41.0-51.0 [facility] PH VENOUS 7.38 Normal 7.32-7.42 [facility] PO2 VENOUS 45 mm Hg High 25-40 [facility] TROPONIN X 2 (NOW AND REPEAT IN 2 HOURS)on 09-11-2025 BASELINE TROPONIN T NG/L 18 ng/L Off scale high <=14 [facility] Comment on above: Performed By: #### 4 [id number] #### LAB [address] [place], [place] [address] Maurice Coello M.D. [id number] TROPONIN T INTERPRETATION Possible acute cardiac injury. Normal [facility] Comment on above: Performed By: #### 4 [id number] #### LAB [address] [place], [place] [address] Maurice Coello M.D. [id number] XR CHEST PA/APon 09-11-2025 XR CHEST PA/AP [...] airspace infiltrates. Workstation ID: [id number] Dictated by: JONATNA CARDENAS on MonSep 11, 2025 10:01:18 PM EST Transcribed by: JONATAN CARDENAS on MonSep 11, 2025 10:01:18 PM EST Finalized by: JONATAN CARDENAS on MonSep 11, 2025 10:01:18 PM EST Normal [facility] Comment on above: Order Comment: Injur y/Trauma or Illness?:Illness/OtherHow long have you had these symptoms (acute/chronic)?:AcuteReason for exam?:sob cp, pt has worsening cough and congesion x2 weeksHistory of cancer?:unknownSurgeries, chemotherapy, or radiation?:cholecystectomy, hysterectomy, oophrectomy, left knee replacementType of Exam?:InitialAdditional signs and symptoms?:pt chronically wears oxygen Neurology Visit Reporton Neurology Visit Report Normal [facility] ED Prov Noteon 08-11-2025 ED Prov Note ED PROVIDER NOTE [facility] EMERGENCY DEPARTMENT NAME: Radha Shafer AGE: 65 y.o. : 1960 VISIT DATE: 08/11/2025 CSN: [id number] PCP: No, Physician Chief Complaint Patient presents [...] PROCEDURE N/A 03/30/2022 Procedure: ALTEMEIER PROCEDURE; Surgeon: Jaad Vargas MD; Location: [facility] Main OR; Service: Colorectal CARDIAC CATHETERIZATION N/A 09/26/2022 Procedure: Coronary Angiogram; Surgeon: Tor Long MD; Location: [facility] [facility] [facility]; Service: Cardiovascular CARDIOVASCULAR STRESS TEST CHOLECYSTECTOMY COLONOSCOPY with biopsies COLONOSCOPY N/A 02/17/2022 Procedure: COLONOSCOPY; Surgeon: Jada Vargas MD; Location: [facility] Endo; Service: Colorectal EGD N/A 08/15/2022 Procedure: ESOPHAGOGASTRODUODENOSC OPY WITH BIOPSY; Surgeon: Tyshawn Santos MD; Location: [facility]; Service: Gastroenterology GALLBLADDER HC LEFT HEART CATH N/A 09/26/2022 Procedure: Left Heart Cath; Surgeon: Tor Long MD; Location: [facility]; Service: Cardiovascular HYSTERECTOMY JOINT REPLACEMENT Left knee ORTHOPEDIC SURGERY r wrist surgery, left ankle, right rotator cuff ROTATOR CUFF REPAIR Right SIGMOIDOSCOPY FLEXIBLE N/A 06/23/2022 Procedure: SIGMOIDOSCOPY FLEXIBLE WITH BIOPSY; Surgeon: Tyshawn Santos MD; Location: [facility]; Service: Gastroenterology THYROIDECTOMY N/A 07/15/2015 Procedure: TOTAL THYROIDECTOMY; Surgeon: Lopez Alonso MD; Location: [facility] OR; Service: US ECHO TRANSTHORACIC [...] total) by mouth daily with breakfast . hqdubvepnlw-veetmhfyb-n ilanter (Trelegy Ellipta) 200-62.5-25 mcg DsDv Inhale 1 (one) Inhalation daily . furosemide (LASIX) 20 MG tablet Take 1 (one) tablet (20 mg total) by mouth daily . (Patient not taking: Reported on 04/30/2025 .) levothyroxine (SYNTHROID, LEVOTHROID) 175 MCG (more content not included)... [facility] XR FOOT RIGHT 3+ VIEWS (LUKE HENDERSON)on [...] on MonAug 11, 2025 5:45:53 PM EDT [facility] Comment on above: Order Comment: [...] C10, Decanoylcarnitine 0.26 umol/L Normal <1.05 [facility] Comment on above: Performed By: #### S PACP #### [place] [address] C10_1, Decenoylcarnitine 0.13 umol/L Normal <0.53 [facility] Comment on above: Performed By: #### S PACP #### [place] [address] C10_2, Decadienoylcarnitine <0.03 Normal <0.30 [facility] Comment on above: Performed By: #### S PACP #### [place] [address] C12, Dodecanoylcarnitine 0.24 umol/L Normal <0.34 [facility] Comment on above: Performed By: #### S PACP #### [place] [address] C12-OH, 6-GZ-frdyrshaovwhkg <0.03 Normal <0.09 [facility] Comment on above: Performed By: #### S PACP #### [place] [address] C12_1, Dodecenoylcarnitine 0.13 umol/L Normal <0.35 [facility] Comment on above: Performed By: #### S PACP #### [place] [address] C14, Tetradecanoylcarnitine 0.23 umol/L High <0.17 [facility] Comment on above: Performed By: #### S PACP #### [place] [address] C14-OH, 1-AG-bkmlypiiymetsqxdn <0.02 Normal <0.08 [facility] Comment on above: Performed By: #### S PACP #### [place] [address] C14_1, Tetradecenoylcarn 0.13 umol/L Normal <0.32 [facility] Comment on above: Performed By: #### S PACP #### [place] [address] Z22_3-HA, 5-RL-Rrcilxitwnojhbl 0.05 umol/L Normal <0.13 [facility] Comment on above: Performed By: #### S PACP #### Performed at [facility], [address], [place] [address] C14_2, Tetradecadienoylcarn 0.04 umol/L Normal <0.22 [facility] Comment on above: Performed By: #### S PACP #### [place] [address] C16, Hexadecanoylcarnitine 0.82 umol/L High <0.29 [facility] Comment on above: Performed By: #### S PACP #### [place] [address] C16-OH, 9-LZ-lraaxrorujnzdmli <0.04 Normal <0.06 [facility] Comment on above: Performed By: #### S PACP #### [place] [address] C16_1, Hexadecenoylcarnitine 0.25 umol/L High <0.10 [facility] Comment on above: Performed By: #### S PACP #### [place] [address] R00_3-LR, 3-NT-tregpshpdyhnyiy 0.04 umol/L Normal <0.07 [facility] Comment on above: Performed By: #### S PACP #### [place] [address] C18, Stearoylcarnitine 0.22 umol/L High <0.17 [facility] Comment on above: Performed By: #### S PACP #### [place] [address] C18-OH, 4-TW-Uzlnxmjaubcayyuux <0.05 Normal <0.07 [facility] Comment on above: Performed By: #### S PACP #### [place] [address] C18_1, Oleylcarnitine 0.99 umol/L High <0.43 [facility] Comment on above: Performed By: #### S PACP #### [place] [address] E42_0-JF, 5-XV-yrtnjzffu <0.05 Normal <0.10 [facility] Comment on above: Performed By: #### S PACP #### [place] [address] C18_2, Linoleylcarnitine 0.29 umol/L High <0.26 [facility] Comment on above: Performed By: #### S PACP #### [place] [address] I56_9-LX, 2-AU-pezpunsplsbp <0.05 Normal <0.11 [facility] Comment on above: Performed By: #### S PACP #### [place] [address] C2, Acetylcarnitine 11.09 umol/L Normal 2.84-25.30 [facility] Comment on above: Performed By: #### S PACP #### [place] [address] C3, Propionylcarnitine 0.56 umol/L Normal <1.00 [facility] Comment on above: Performed By: #### S PACP #### [place] [address] C3-DC, Malonylcarnitine <0.06 Normal <0.14 [facility] Comment on above: Performed By: #### S PACP #### [place] [address] C4, Iso-/Butyrylcarnitine 0.60 umol/L Normal <1.01 [facility] Comment on above: Performed By: #### S PACP #### [place] [address] C4-DC, Methylmalonyl-/succinyl 0.06 umol/L Normal <0.25 [facility] Comment on above: Performed By: #### S PACP #### [place] [address] C4-OH, 3-OH-iso/butyrylcarn <0.03 Normal <0.40 [facility] Comment on above: Performed By: #### S PACP #### [place] [address] C5, Isovaleryl-/2-Methylbut yry 0.10 umol/L Normal <0.65 [facility] Comment on above: Performed By: #### S PACP #### [place] [address] C5-DC, Glutarylcarnitine 0.05 umol/L Normal <0.18 [facility] Comment on above: Performed By: #### S PACP #### [place] [address] C5-OH, 3-PK-hmvqpencjdglzn <0.04 Normal <0.20 [facility] Comment on above: Performed By: #### S PACP #### [place] [address] C5_1, Tiglylcarnitine <0.05 Normal <0.15 [facility] Comment on above: Performed By: #### S PACP #### [place] [address] C6, Hexanoylcarnitine 0.06 umol/L Normal <0.42 [facility] Comment on above: Performed By: #### S PACP #### [place] [address] C6-DC, Adipylcarnitine 0.09 umol/L Normal <0.13 [facility] Comment on above: Performed By: #### S PACP #### [place] [address] C6-OH, 3-PS-gysmyjlhamufccifa <0.02 Normal <0.20 [facility] Comment on above: Performed By: #### S PACP #### [place] [address] C8, Octanoylcarnitine 0.14 umol/L Normal <1.00 [facility] Comment on above: Performed By: #### S PACP #### [place] [address] C8-DC, Suberylcarnitine <0.04 Normal <0.10 [facility] Comment on above: Performed By: #### S PACP #### [place] [address] C8_1, Octenoylcarnitine 0.27 umol/L Normal <0.97 [facility] Comment on above: Performed By: #### S PACP #### [place] [address] Free Carnitine 46.60 umol/L Normal 22-52 [facility] Comment on above: Performed By: #### S PACP #### [place] [address] Interpretation Normal [facility] Comment on above: Result Comment: Inte rpretation: Clinical correlation suggested. 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 Performed By: #### S PACP #### [place] [address] Total Carnitine 60.28 umol/L Normal 27-66 [facility] Comment on above: Performed By: #### S PACP #### [place] [address] Acylcarnitines, Quantitative , Plasma & Serumon 07-23-2025 Note: This test was develo ped and its performance characteristics determined by [facility]. It has not been cleared or approved by the FDA. The laboratory is regulated under CLIA as qualified to perform high complexity testing. This test is used for clinical purposes. It should not be regarded as investigational or for research. Normal [facility] Comment on above: Performed By: #### S PACP #### [place] [address] CBC Auto Diff Reflex Manualo n 07-23-2025 Absolute Basophils 0.1 10*3/uL High <0.1 [facility] Absolute Eosinophils 0.2 10*3/uL Normal 0.0-0.4 [facility] Absolute Immature Granulocytes 0.0 10*3/uL Normal <0.1 [facility] Absolute Lymphocytes 1.5 10*3/uL Normal 1.2-3.5 [facility] Absolute Monocytes 0.6 10*3/uL Normal 0.2-0.9 [facility] Absolute Neutrophils 7.8 10*3/uL High 1.6-7.3 [facility] Automated Absolute Neutrophil 7.8 10*3/uL High 1.6-7.3 [facility] Comment on above: Result Comment: Auto mated Absolute Neutrophil Count (ANC) is directly measured using a hematology instrument. ANC determined from manual differential cell count may differ. Basophil 0.9 % Normal 0.2-1.6 [facility] Differential Type Automated Normal [facility] Eosinophil 1.8 % Normal 0.2-8.1 [facility] Immature Granulocytes 0.3 % Normal <0.7 [facility] Lymphocyte 14.2 % Normal 9.0-51.0 [facility] MCH 26.9 pg Normal 26.0-34.0 [facility] MCHC 31.3 % Normal 31.0-37.0 [facility] MCV 85.8 fL Normal 80.0-100.0 [facility] Monocyte 6.2 % Normal 4.0-13.0 [facility] MPV 10.8 fL Normal 8.8-13.0 [facility] Neutrophil 76.6 % Normal 40.8-78.2 [facility] Platelet Count 288 10*3/uL Normal 142-508 [facility] RBC 4.1 10*6/uL Normal 4.0-5.2 [facility] RDW 13.2 % Normal 10-14.1 [facility] WBC 10.2 10*3/uL Normal 4.5-11.0 [facility] CBC W Differential panel, me thod unspecified (Bld)on 07-23-2025 Basophils (Bld) [#/Vol] 0.1 10*3/uL High NINF - 0.1 10*3/uL [facility] Basophils/100 WBC (Bld) 0.9 % 0.2 - 1.6 % [facility] Differential cell count method Nom (Bld) Automated [facility] Eosinophils (Bld) [#/Vol] 0.2 10*3/uL 0.0 - 0.4 10*3/uL [facility] Eosinophils/100 WBC (Bld) 1.8 % 0.2 - 8.1 % [facility] Erythrocyte distribution width (RBC) [Ratio] 13.2 % 10 - 14.1 % [facility] Hematocrit (Bld) [Volume fraction] 35.1 % Low 36.0 - 46.0 % [facility] Hemoglobin (Bld) [Mass/Vol] 11.0 g/dL Low 12.0 - 16.0 g/dL [facility] Immature granulocytes (Bld) [#/Vol] 0.0 10*3/uL NINF - 0.1 10*3/uL [facility] Immature granulocytes/100 WBC (Bld) 0.3 % NINF - 0.7 % [facility] Interpretation and review of laboratory results Abnormal [facility] Lymphocytes (Bld) [#/Vol] 1.5 10*3/uL 1.2 - 3.5 10*3/uL [facility] Lymphocytes/100 WBC (Bld) 14.2 % 9.0 - 51.0 % [facility] MCH (RBC) [Entitic mass] 26.9 pg 26.0 - 34.0 pg [facility] MCHC (RBC) [Mass/Vol] 31.3 % 31.0 - 37.0 % [facility] MCV (RBC) [Entitic vol] 85.8 fL 80.0 - 100.0 fL [facility] Monocytes (Bld) [#/Vol] 0.6 10*3/uL 0.2 - 0.9 10*3/uL [facility] Monocytes/100 WBC (Bld) 6.2 % 4.0 - 13.0 % [facility] Neutrophils (Bld) [#/Vol] 7.8 10*3/uL High 1.6 - 7.3 10*3/uL [facility] Comment on above: Automated Absolute N eutrophil Count (ANC) is directly measured using a hematology instrument. ANC determined from manual differential cell count may differ. Neutrophils/100 WBC (Bld) 76.6 % 40.8 - 78.2 % [facility] Platelet mean volume (Bld) [Entitic vol] 10.8 fL 8.8 - 13.0 fL [facility] Platelets (Bld) [#/Vol] 288 10*3/uL 142 - 508 10*3/uL [facility] RBC (Bld) [#/Vol] 4.1 10*6/uL 4.0 - 5.2 10*6/uL [facility] WBC (Bld) [#/Vol] 10.2 10*3/uL 4.5 - 11.0 10*3/uL [facility] CKon 07-23-2025 CK [Catalytic activity/Vol] 73 U/L Normal <289 [facility] Comprehensive Metabolic Pane jett 07-23-2025 Albumin [Mass/Vol] 4.2 g/dL Normal 3.4-5.2 [facility] ALP [Catalytic activity/Vol] 87 U/L Normal 50-136 [facility] ALT [Catalytic activity/Vol] 18 U/L Normal <36 [facility] AST [Catalytic activity/Vol] 28 U/L Normal 15-50 [facility] Bilirubin [Mass/Vol] 0.2 mg/dL Normal 0.1-1.0 [facility] Calcium [Mass/Vol] 8.7 mg/dL Normal 8-10.5 [facility] Chloride [Moles/Vol] 93 mmol/L Low 98-110 [facility] CO2 [Moles/Vol] 30 mmol/L Normal 21-30 [facility] Creatinine [Mass/Vol] 1.72 mg/dL High 0.5-1 [facility] Glucose [Mass/Vol] 95 mg/dL Normal 60-115 [facility] Potassium [Moles/Vol] 5.2 mmol/L High 3.6-4.9 [facility] Protein [Mass/Vol] 7.9 g/dL Normal 6.5-8.6 [facility] Sodium [Moles/Vol] 131 mmol/L Low 135-145 [facility] Urea nitrogen [Mass/Vol] 28 mg/dL High 5-18 [facility] Comprehensive metabolic 2000 panelon 07-23-2025 Interpretation and review of laboratory results Abnormal [facility] No Panel Informationon 07-23 [facility] Absolute lymphocyte countOrd ered By: Arnel Cano on 07-20-2025 Lymphocytes Auto (Unsp spec) [#/Vol] 1.46 10*3/uL 0.83-4.51 [facility] Absolute neutrophil countOrd ered By: Arnel Cano on 07-20-2025 Neutrophils (Bld) [#/Vol] 4.7 10*3/uL 2.0-7.7 [facility] Anion gap in Serum or Plasma Ordered By: Arnel Cano on 07-20-2025 Anion gap [Moles/Vol] 10 mmol/L 5-15 [facility] Automated lymphocyte count a s percentage of total leukocytesOrdered By: Arnel Cano on 07-20-2025 Lymphocytes/100 WBC Auto (Unsp spec) 21.1 % -41 [facility] BUN/creatinine ratioOrdered By: Arnel Cano on 07-20-2025 Urea nitrogen/Creatinine [Mass ratio] 8.2 mg/mg Low 10-20 [facility] Basic Metabolic Profile (BMP )on 07-20-2025 BUN/CRE 8.2 RATIO Low 10-20 [facility] Comment on above: Performed By: #### L 500.2500, L100.0100 ####[facility] [address] [place], [address] Calcium [Mass/Vol] 9.0 mg/dL Normal 7.6-11.0 [facility] Comment on above: Performed By: #### L 500.2500, L100.0100 ####[facility] [address] [place], [address] Chloride [Moles/Vol] 94 mmol/L Low 98-108 [facility] Comment on above: Performed By: #### L 500.2500, L100.0100 ####[facility] [address] [place], [address] CO2 [Moles/Vol] 26.4 mmol/L Normal 21.0-32.0 [facility] Comment on above: Performed By: #### L 500.2500, L100.0100 ####[facility] [address] [place], [address] Creatinine [Mass/Vol] 1.47 mg/dL High 0.70-1.20 [facility] Comment on above: Performed By: #### L 500.2500, L100.0100 ####[facility] [address] [place], [address] ECRCL 43.55 ml/min Low 50-250 [facility] Comment on above: Performed By: #### L 500.2500, L100.0100 ####[facility] [address] [place], [address] GAP 10 Normal 5-15 [facility] Comment on above: Performed By: #### L 500.2500, L100.0100 ####[facility] [address] [place], [address] GFR/1.73 sq M.predicted among non-blacks MDRD (S/P/Bld) [Vol rate/Area] 39 mL/min/{1.73_m2} Low >60 [facility] Comment on above: Result Comment: mL/m in/1.73m2 CKD-EPI Creatinine Equation (2020) Performed By: #### L 500.2500, L100.0100 ####[facility] [address] [place], [address] Glucose [Mass/Vol] 97 mg/dL Normal 70-99 [facility] Comment on above: Performed By: #### L 500.2500, L100.0100 ####[facility] [address] [place], [address] Potassium [Moles/Vol] 4.6 mmol/L Normal 3.3-5.1 [facility] Comment on above: Performed By: #### L 500.2500, L100.0100 ####[facility] [address] [place], [address] Sodium [Moles/Vol] 130 mmol/L Low 133-145 [facility] Comment on above: Performed By: #### L 500.2500, L100.0100 ####[facility] [address] [place], [address] Urea nitrogen [Mass/Vol] 12 mg/dL Normal 4-19 [facility] Comment on above: Performed By: #### L 500.2499, L100.0100 ####[facility] [address] [place], [address] Basophil percentageOrdered B y: Arnel Cano on 07-20-2025 Basophils/100 WBC (Bld) 0.7 % 0-1 [facility] CBC W/Diff, Automatedon 07-07 Absolute Lymph 1.46 X10 3/uL Normal 0.83-4.51 [facility] Comment on above: Performed By: #### L 500.2499, L100.0100 ####[facility] [address] [place], [address] Absolute Neut 4.7 X10 3/uL Normal 2.0-7.7 [facility] Comment on above: Performed By: #### L 500.2500, L100.0100 ####[facility] [address] [place], [address] Basophils/100 WBC (Bld) 0.7 % Normal 0-1 [facility] Comment on above: Performed By: #### L 500.2500, L100.0100 ####[facility] [address] [place], [address] Eosinophils/100 WBC (Bld) 2.7 % Normal 0-5 [facility] Comment on above: Performed By: #### L 500.2500, L100.0100 ####[facility] [address] [place], [address] Erythrocyte distribution width (RBC) [Ratio] 13.2 % Normal 11.6-14.6 [facility] Comment on above: Performed By: #### L 500.2500, L100.0100 ####[facility] [address] [place], [address] Hematocrit (Bld) [Volume fraction] 32.6 % Low 37-47 [facility] Comment on above: Performed By: #### L 500.2500, L100.0100 ####[facility] [address] [place], [address] Hemoglobin (Bld) [Mass/Vol] 10.4 g/dL Low 12.0-15.0 [facility] Comment on above: Performed By: #### L 500.2500, L100.0100 ####[facility] [address] [place], [address] IG% 0.400 Normal 0.0-0.9 [facility] Comment on above: Result Comment: IG% - Immature Granulocytes (promyelocytes, myelocytes andmetamyelocytes) > 1% indicates that a LEFT SHIFT is Present. Performed By: #### L 500.2500, L100.0100 ####[facility] [address] [place], [address] Lymphocytes/100 WBC (Bld) 21.1 % Normal 19-41 [facility] Comment on above: Performed By: #### L 500.2500, L100.0100 ####[facility] [address] [place], [address] MCH (RBC) [Entitic mass] 26.9 pg Low 27.0-32.0 [facility] Comment on above: Performed By: #### L 500.2500, L100.0100 ####[facility] [address] [place], [address] MCHC (RBC) [Mass/Vol] 31.9 g/dL Low 32-36 [facility] Comment on above: Performed By: #### L 500.2500, L100.0100 ####[facility] [address] [place], [address] MCV (RBC) [Entitic vol] 84.2 fL Normal 81-99 [facility] Comment on above: Performed By: #### L 500.2500, L100.0100 ####[facility] [address] [place], [address] Monocytes/100 WBC (Bld) 7.2 % Normal 0-10 [facility] Comment on above: Performed By: #### L 500.2500, L100.0100 ####[facility] [address] [place], [address] Neutrophils/100 WBC (Bld) 67.9 % Normal 47-70 [facility] Comment on above: Performed By: #### L 500.2500, L100.0100 ####[facility] [address] [place], [address] Nucleated RBC (Bld) [#/Vol] 0 10*3/uL Normal 0-5 [facility] Comment on above: Performed By: #### L 500.2500, L100.0100 ####[facility] [address] [place], [address] Platelet mean volume (Bld) [Entitic vol] 10.1 fL Normal 6.2-12.0 [facility] Comment on above: Performed By: #### L 500.2500, L100.0100 ####[facility] [address] [place], [address] Platelets (Bld) [#/Vol] 238 10*3/uL Normal 150-450 [facility] Comment on above: Performed By: #### L 500.2500, L100.0100 ####[facility] [address] [place], [address] RBC (Bld) [#/Vol] 3.87 10*6/uL Low 4.2-5.4 [facility] Comment on above: Performed By: #### L 500.2500, L100.0100 ####[facility] [address] [place], [address] RDW SD 40.2 fl Normal 35.1-43.9 [facility] Comment on above: Performed By: #### L 500.2500, L100.0100 ####[facility] [address] [place], [address] WBC (Bld) [#/Vol] 6.9 10*3/uL Normal 4.4-11.0 [facility] Comment on above: Performed By: #### L 500.2500, L100.0100 ####[facility] [address] [place], [address] Carbon dioxide, total [Moles /volume] in Central venous bloodOrdered By: Arnel Cano on 07-20-2025 CO2 [Moles/Vol] 26.4 mmol/L 21.0-32.0 [facility] Chloride assayOrdered By: Mally Cano on 07-20-2025 Chloride [Moles/Vol] 94 mmol/L Low 98-108 [facility] Discharge Instructionon 07-07 Discharge Instruction Normal [facility] Eosinophil percentageOrdered By: Arnel Cano on 07-20-2025 Eosinophils/100 WBC (Bld) 2.7 % 0-5 [facility] Erythrocyte distribution wid th ratioOrdered By: Arnel Cano on 07-20-2025 Erythrocyte distribution width (RBC) [Ratio] 13.2 % 11.6-14.6 [facility] Erythrocyte distribution wid th standard deviationOrdered By: Arnel Cano on 07-20-2025 Erythrocyte distribution width (RBC) [Ratio] 40.2 fl 35.1-43.9 [facility] Glomerular filtration rate ( GFR) estimation/1.73 sq m using serum, plasma, or whole bOrdered By: Arnel Cano on 07-20-2025 GFR/1.73 sq M.predicted among non-blacks MDRD (S/P/Bld) [Vol rate/Area] 39 mL/min/{1.73_m2} Low >60 [facility] Comment on above: mL/min/1.73m2 CKD-EP I Creatinine Equation (2020) Hematocrit Auto (Bld) [Volum e fraction]Ordered By: Arnel Cano on 07-20-2025 Hematocrit (Bld) [Volume fraction] 32.6 % Low 37-47 [facility] Hemoglobin measurementOrdere d By: Arnel Cano on 07-20-2025 Hemoglobin (Bld) [Mass/Vol] 10.4 g/dL Low 12.0-15.0 [facility] Immature granulocytes/100 WB C Auto (Bld)Ordered By: Arnel Cano on 07-20-2025 Immature granulocytes/100 WBC (Bld) 0.400 % 0.0-0.9 [facility] Comment on above: IG% - Immature Granu locytes (promyelocytes, myelocytes and metamyelocytes) > 1% indicates that a LEFT SHIFT is Present. MCV (mean corpuscular volume ) determinationOrdered By: Arnel Cano on 07-20-2025 MCV (RBC) [Entitic vol] 84.2 fL 81-99 [facility] Mean corpuscular hemoglobin (MCH) determinationOrdered By: Arnel Cano 07-20-2025 MCH (RBC) [Entitic mass] 26.9 pg Low 27.0-32.0 [facility] Mean corpuscular hemoglobin concentration (MCHC) determinationOrdered By: Arnel Cano on 07-20-2025 MCHC (RBC) [Mass/Vol] 31.9 g/dL Low 32-36 [facility] Mean platelet volume determi nationOrdered By: Arnel Cano on 07-20-2025 Platelet mean volume (Bld) [Entitic vol] 10.1 fL 6.2-12.0 [facility] Monocyte percentageOrdered B y: Arnel Cano on 07-20-2025 Monocytes/100 WBC (Bld) 7.2 % 0-10 [facility] Neutrophil percentageOrdered By: Arnel Cano on 07-20-2025 Neutrophils/100 WBC (Bld) 67.9 % 47-70 [facility] Nucleated red blood cell per centageOrdered By: Arnel Cano on 07-20-2025 Nucleated RBC/100 WBC (Bld) [Ratio] 0 % 0-5 [facility] Platelet countOrdered By: Mally Cano on 07-20-2025 Platelets (Bld) [#/Vol] 238 10*3/uL 150-450 [facility] Potassium measurement (mass/ volume)Ordered By: Arnel Cano on 07-20-2025 Potassium (Unsp spec) [Mass/Vol] 4.6 mmol/L 3.3-5.1 [facility] RBC Auto (Bld) [#/Vol]Ordere d By: Arnel Cano on 07-20-2025 RBC (Bld) [#/Vol] 3.87 10*6/uL Low 4.2-5.4 [facility] Serum creatinine measurement (mass/volume)Ordered By: Arnel Cano on 07-20-2025 Creatinine [Mass/Vol] 1.47 mg/dL High 0.70-1.20 [facility] Serum glucose measurement (m ass/volume)Ordered By: Arnel Cano on 07-20-2025 Glucose [Mass/Vol] 97 mg/dL 70-99 [facility] Serum or plasma calcium marivel urement (mass/volume)Ordered By: Arnel Cano on 07-20-2025 Calcium [Mass/Vol] 9.0 mg/dL 7.6-11.0 [facility] Serum or plasma urea nitroge n measurement (mass/volume)Ordered By: Arnel Cano on 07-20-2025 Urea nitrogen [Mass/Vol] 12 mg/dL 4-19 [facility] Sodium levelOrdered By: Osvaldo Cano on 07-20-2025 Sodium [Moles/Vol] 130 mmol/L Low 133-145 [facility] White blood cell (WBC) count Ordered By: Arnel Cano on 07-20-2025 WBC (Bld) [#/Vol] 6.9 10*3/uL 4.4-11.0 [facility] 12 Lead EKGon 07-19-2025 12 Lead EKG Normal [facility] Basic Metabolic Profile (BMP )on 07-19-2025 BUN/CRE 9.2 RATIO Low 10-20 [facility] Comment on above: Performed By: #### L 501.2300, L500.2500 ####[facility] [address] [place], [address] Calcium [Mass/Vol] 8.6 mg/dL Normal 7.6-11.0 [facility] Comment on above: Performed By: #### L 501.2300, L500.2500 ####[facility] [address] [place], [address] Chloride [Moles/Vol] 97 mmol/L Low 98-108 [facility] Comment on above: Performed By: #### L 501.2300, L500.2500 ####[facility] [address] [place], [address] CO2 [Moles/Vol] 25.5 mmol/L Normal 21.0-32.0 [facility] Comment on above: Performed By: #### L 501.2300, L500.2500 ####[facility] [address] [place], [address] Creatinine [Mass/Vol] 1.37 mg/dL High 0.70-1.20 [facility] Comment on above: Performed By: #### L 501.2300, L500.2500 ####[facility] [address] [place], [address] ECRCL 47.08 ml/min Low 50-250 [facility] Comment on above: Performed By: #### L 501.2300, L500.2500 ####[facility] [address] [place], [address] GAP 9 Normal 5-15 [facility] Comment on above: Performed By: #### L 501.2300, L500.2500 ####[facility] [address] [place], [address] GFR/1.73 sq M.predicted among non-blacks MDRD (S/P/Bld) [Vol rate/Area] 42 mL/min/{1.73_m2} Low >60 [facility] Comment on above: Result Comment: mL/m in/1.73m2 CKD-EPI Creatinine Equation (2020) Performed By: #### L 501.2300, L500.2500 ####[facility] [address] [place], [address] Glucose [Mass/Vol] 128 mg/dL High 70-99 [facility] Comment on above: Performed By: #### L 501.2300, L500.2500 ####[facility] [address] [place], [address] Potassium [Moles/Vol] 4.6 mmol/L Normal 3.3-5.1 [facility] Comment on above: Performed By: #### L 501.2300, L500.2500 ####[facility] [address] [place], [address] Sodium [Moles/Vol] 131 mmol/L Low 133-145 [facility] Comment on above: Performed By: #### L 501.2300, L500.2500 ####[facility] [address] [place], [address] Urea nitrogen [Mass/Vol] 13 mg/dL Normal 4-19 [facility] Comment on above: Performed By: #### L 501.2300, L500.2500 ####[facility] [address] [place], [address] CBC W/Diff, Automatedon - 3-2024 Absolute Lymph 1.25 X10 3/uL Normal 0.83-4.51 [facility] Comment on above: Performed By: #### L 100.0100 ####[facility] [address] [place], [address] Absolute Neut 3.2 X10 3/uL Normal 2.0-7.7 [facility] Comment on above: Performed By: #### L 100.0100 ####[facility] [address] [place], [address] Basophils/100 WBC (Bld) 1.0 % Normal 0-1 [facility] Comment on above: Performed By: #### L 100.0100 ####[facility] [address] [place], [address] Eosinophils/100 WBC (Bld) 2.6 % Normal 0-5 [facility] Comment on above: Performed By: #### L 100.0100 ####[facility] [address] [place], [address] Erythrocyte distribution width (RBC) [Ratio] 12.8 % Normal 11.6-14.6 [facility] Comment on above: Performed By: #### L 100.0100 ####[facility] [address] [place], [address] Hematocrit (Bld) [Volume fraction] 32.2 % Low 37-47 [facility] Comment on above: Performed By: #### L 100.0100 ####[facility] [address] [place], [address] Hemoglobin (Bld) [Mass/Vol] 10.1 g/dL Low 12.0-15.0 [facility] Comment on above: Performed By: #### L 100.0100 ####[facility] [address] [place], [address] IG% 0.200 Normal 0.0-0.9 [facility] Comment on above: Result Comment: IG% - Immature Granulocytes (promyelocytes, myelocytes andmetamyelocytes) > 1% indicates that a LEFT SHIFT is Present. Performed By: #### L 100.0100 ####[facility] [address] [place], [address] Lymphocytes/100 WBC (Bld) 24.7 % Normal 19-41 [facility] Comment on above: Performed By: #### L 100.0100 ####[facility] [address] [place], [address] MCH (RBC) [Entitic mass] 26.7 pg Low 27.0-32.0 [facility] Comment on above: Performed By: #### L 100.0100 ####[facility] [address] [place], [address] MCHC (RBC) [Mass/Vol] 31.4 g/dL Low 32-36 [facility] Comment on above: Performed By: #### L 100.0100 ####[facility] [address] [place], [address] MCV (RBC) [Entitic vol] 85.2 fL Normal 81-99 [facility] Comment on above: Performed By: #### L 100.0100 ####[facility] [address] [place], [address] Monocytes/100 WBC (Bld) 8.3 % Normal 0-10 [facility] Comment on above: Performed By: #### L 100.0100 ####[facility] [address] [place], [address] Neutrophils/100 WBC (Bld) 63.2 % Normal 47-70 [facility] Comment on above: Performed By: #### L 100.0100 ####[facility] [address] [place], [address] Nucleated RBC (Bld) [#/Vol] 0 10*3/uL Normal 0-5 [facility] Comment on above: Performed By: #### L 100.0100 ####[facility] [address] [place], [address] Platelet mean volume (Bld) [Entitic vol] 10.0 fL Normal 6.2-12.0 [facility] Comment on above: Performed By: #### L 100.0100 ####[facility] [address] [place], [address] Platelets (Bld) [#/Vol] 191 10*3/uL Normal 150-450 [facility] Comment on above: Performed By: #### L 100.0100 ####[facility] [address] [place], [address] RBC (Bld) [#/Vol] 3.78 10*6/uL Low 4.2-5.4 [facility] Comment on above: Performed By: #### L 100.0100 ####[facility] [address] [place], [address] RDW SD 39.4 fl Normal 35.1-43.9 [facility] Comment on above: Performed By: #### L 100.0100 ####[facility] [address] [place], [address] WBC (Bld) [#/Vol] 5.1 10*3/uL Normal 4.4-11.0 [facility] Comment on above: Performed By: #### L 100.0100 ####[facility] [address] [place], [address] CPK Total, Creatine Kinaseon 07-19-2025 CPK TOTAL 128 U/L Normal - [facility] Comment on above: Performed By: #### L 501.3620 ####[facility] [address] [place], [address] Phosphoruson 07-19-2025 Phosphate [Mass/Vol] 3.6 mg/dL Normal 2.7-4.5 [facility] Comment on above: Performed By: #### L 501.2300, L500.2500 ####[facility] [address] [place], [address] Serum or plasma creatine kin ase activityOrdered By: Arnel Cano on 07-19-2025 CK [Catalytic activity/Vol] 128 U/L - [facility] Basic Metabolic Profile (BMP )on 07-18-2025 BUN/CRE 11.7 RATIO Normal 10-20 [facility] Comment on above: Performed By: #### L 500.2500, L501.5200 ####[facility] [address] [place], [address] Calcium [Mass/Vol] 8.8 mg/dL Normal 7.6-11.0 [facility] Comment on above: Performed By: #### L 500.2500, L501.5200 ####[facility] [address] [place], [address] Chloride [Moles/Vol] 94 mmol/L Low 98-108 [facility] Comment on above: Performed By: #### L 500.2500, L501.5200 ####[facility] [address] [place], [address] CO2 [Moles/Vol] 27.6 mmol/L Normal 21.0-32.0 [facility] Comment on above: Performed By: #### L 500.2500, L501.5200 ####[facility] [address] [place], [address] Creatinine [Mass/Vol] 1.70 mg/dL High 0.70-1.20 [facility] Comment on above: Performed By: #### L 500.2500, L501.5200 ####[facility] [address] [place], [address] ECRCL 37.57 ml/min Low 50-250 [facility] Comment on above: Performed By: #### L 500.2500, L501.5200 ####[facility] [address] [place], [address] GAP 9 Normal 5-15 [facility] Comment on above: Performed By: #### L 500.2500, L501.5200 ####[facility] [address] [place], [address] GFR/1.73 sq M.predicted among non-blacks MDRD (S/P/Bld) [Vol rate/Area] 33 mL/min/{1.73_m2} Low >60 [facility] Comment on above: Result Comment: mL/m in/1.73m2 CKD-EPI Creatinine Equation (2020) Performed By: #### L 500.2500, L501.5200 ####[facility] [address] [place], [address] Glucose [Mass/Vol] 137 mg/dL High 70-99 [facility] Comment on above: Performed By: #### L 500.2500, L501.5200 ####[facility] [address] [place], [address] Potassium [Moles/Vol] 4.8 mmol/L Normal 3.3-5.1 [facility] Comment on above: Performed By: #### L 500.2500, L501.5200 ####[facility] [address] [place], [address] Sodium [Moles/Vol] 131 mmol/L Low 133-145 [facility] Comment on above: Performed By: #### L 500.2500, L501.5200 ####[facility] [address] [place], [address] Urea nitrogen [Mass/Vol] 20 mg/dL High 4-19 [facility] Comment on above: Performed By: #### L 500.2500, L501.5200 ####[facility] [address] [place], [address] Bilirubin Test strip Ql (U)O rdered By: Elana Granda on 07-18-2025 Bilirubin Ql (U) Negative Negative [facility] Bilirubin, totalOrdered By: Elana Granda on 07-18-2025 Bilirubin [Mass/Vol] mg/dL 0.00-1.30 [facility] CBC W/Diff, Automatedon 07-07 Absolute Lymph 1.55 X10 3/uL Normal 0.83-4.51 [facility] Comment on above: Performed By: #### L 500.4050, L501.2300, L501.9520, L100.0100 ####[facility] [address] [place], [address] Absolute Neut 4.1 X10 3/uL Normal 2.0-7.7 [facility] Comment on above: Performed By: #### L 500.4050, L501.2300, L501.9520, L100.0100 ####[facility] [address] [place], [address] Basophils/100 WBC (Bld) 0.8 % Normal 0-1 [facility] Comment on above: Performed By: #### L 500.4050, L501.2300, L501.9520, L100.0100 ####[facility] [address] [place], [address] Eosinophils/100 WBC (Bld) 3.0 % Normal 0-5 [facility] Comment on above: Performed By: #### L 500.4050, L501.2300, L501.9520, L100.0100 ####[facility] [address] [place], [address] Erythrocyte distribution width (RBC) [Ratio] 12.9 % Normal 11.6-14.6 [facility] Comment on above: Performed By: #### L 500.4050, L501.2300, L501.9520, L100.0100 ####[facility] [address] [place], [address] Hematocrit (Bld) [Volume fraction] 31.0 % Low 37-47 [facility] Comment on above: Performed By: #### L 500.4050, L501.2300, L501.9520, L100.0100 ####[facility] [address] [place], [address] Hemoglobin (Bld) [Mass/Vol] 9.7 g/dL Low 12.0-15.0 [facility] Comment on above: Performed By: #### L 500.4050, L501.2300, L501.9520, L100.0100 ####[facility] [address] [place], [address] IG% 0.200 Normal 0.0-0.9 [facility] Comment on above: Result Comment: IG% - Immature Granulocytes (promyelocytes, myelocytes andmetamyelocytes) > 1% indicates that a LEFT SHIFT is Present. Performed By: #### L 500.4050, L501.2300, L501.9520, L100.0100 ####[facility] [address] [place], [address] Lymphocytes/100 WBC (Bld) 24.1 % Normal 19-41 [facility] Comment on above: Performed By: #### L 500.4050, L501.2300, L501.9520, L100.0100 ####[facility] [address] [place], [address] MCH (RBC) [Entitic mass] 26.7 pg Low 27.0-32.0 [facility] Comment on above: Performed By: #### L 500.4050, L501.2300, L501.9520, L100.0100 ####[facility] [address] [place], [address] MCHC (RBC) [Mass/Vol] 31.3 g/dL Low 32-36 [facility] Comment on above: Performed By: #### L 500.4050, L501.2300, L501.9520, L100.0100 ####[facility] [address] [place], [address] MCV (RBC) [Entitic vol] 85.4 fL Normal 81-99 [facility] Comment on above: Performed By: #### L 500.4050, L501.2300, L501.9520, L100.0100 ####[facility] [address] [place], [address] Monocytes/100 WBC (Bld) 8.2 % Normal 0-10 [facility] Comment on above: Performed By: #### L 500.4050, L501.2300, L501.9520, L100.0100 ####[facility] [address] [place], [address] Neutrophils/100 WBC (Bld) 63.7 % Normal 47-70 [facility] Comment on above: Performed By: #### L 500.4050, L501.2300, L501.9520, L100.0100 ####[facility] [address] [place], [address] Nucleated RBC (Bld) [#/Vol] 0 10*3/uL Normal 0-5 [facility] Comment on above: Performed By: #### L 500.4050, L501.2300, L501.9520, L100.0100 ####[facility] [address] [place], [address] Platelet mean volume (Bld) [Entitic vol] 9.8 fL Normal 6.2-12.0 [facility] Comment on above: Performed By: #### L 500.4050, L501.2300, L501.9520, L100.0100 ####[facility] [address] [place], [address] Platelets (Bld) [#/Vol] 210 10*3/uL Normal 150-450 [facility] Comment on above: Performed By: #### L 500.4050, L501.2300, L501.9520, L100.0100 ####[facility] [address] [place], [address] RBC (Bld) [#/Vol] 3.63 10*6/uL Low 4.2-5.4 [facility] Comment on above: Performed By: #### L 500.4050, L501.2300, L501.9520, L100.0100 ####[facility] [address] [place], [address] RDW SD 39.8 fl Normal 35.1-43.9 [facility] Comment on above: Performed By: #### L 500.4050, L501.2300, L501.9520, L100.0100 ####[facility] [address] [place], [address] WBC (Bld) [#/Vol] 6.4 10*3/uL Normal 4.4-11.0 [facility] Comment on above: Performed By: #### L 500.4050, L501.2300, L501.9520, L100.0100 ####[facility] [address] [place], [address] Comprehensive Metabolic Prof ilon 07-18-2025 Albumin [Mass/Vol] 3.5 g/dL Normal 3.4-4.8 [facility] Comment on above: Performed By: #### L 500.4050, L501.2300, L501.9520, L100.0100 ####[facility] [address] [place], [address] Albumin/Globulin [Mass ratio] 1.2 {ratio} Normal 0.9-2.4 [facility] Comment on above: Performed By: #### L 500.4050, L501.2300, L501.9520, L100.0100 ####[facility] [address] [place], [address] ALK PHOS 81 U/L Normal 35-104 [facility] Comment on above: Performed By: #### L 500.4050, L501.2300, L501.9520, L100.0100 ####[facility] [address] [place], [address] ALT [Catalytic activity/Vol] 13 U/L Normal <=34 [facility] Comment on above: Performed By: #### L 500.4050, L501.2300, L501.9520, L100.0100 ####[facility] [address] [place], [address] AST [Catalytic activity/Vol] 27 U/L Normal <=31 [facility] Comment on above: Performed By: #### L 500.4050, L501.2300, L501.9520, L100.0100 ####[facility] [address] [place], [address] BUN/CRE 11.8 RATIO Normal 10-20 [facility] Comment on above: Performed By: #### L 500.4050, L501.2300, L501.9520, L100.0100 ####[facility] [address] [place], [address] Calcium [Mass/Vol] 8.6 mg/dL Normal 7.6-11.0 [facility] Comment on above: Performed By: #### L 500.4050, L501.2300, L501.9520, L100.0100 ####[facility] [address] [place], [address] Chloride [Moles/Vol] 94 mmol/L Low 98-108 [facility] Comment on above: Performed By: #### L 500.4050, L501.2300, L501.9520, L100.0100 ####[facility] [address] [place], [address] CO2 [Moles/Vol] 25.8 mmol/L Normal 21.0-32.0 [facility] Comment on above: Performed By: #### L 500.4050, L501.2300, L501.9520, L100.0100 ####[facility] [address] [place], [address] Creatinine [Mass/Vol] 1.57 mg/dL High 0.70-1.20 [facility] Comment on above: Performed By: #### L 500.4050, L501.2300, L501.9520, L100.0100 ####[facility] [address] [place], [address] ECRCL 40.82 ml/min Low 50-250 [facility] Comment on above: Performed By: #### L 500.4050, L501.2300, L501.9520, L100.0100 ####[facility] [address] [place], [address] GAP 10 Normal 5-15 [facility] Comment on above: Performed By: #### L 500.4050, L501.2300, L501.9520, L100.0100 ####[facility] [address] [place], [address] GFR/1.73 sq M.predicted among non-blacks MDRD (S/P/Bld) [Vol rate/Area] 36 mL/min/{1.73_m2} Low >60 [facility] Comment on above: Result Comment: mL/m in/1.73m2 CKD-EPI Creatinine Equation (2020) Performed By: #### L 500.4050, L501.2300, L501.9520, L100.0100 ####[facility] [address] [place], [address] Globulin (S) [Mass/Vol] 2.8 g/dL Normal 2.2-4.2 [facility] Comment on above: Performed By: #### L 500.4050, L501.2300, L501.9520, L100.0100 ####[facility] [address] [place], [address] Glucose [Mass/Vol] 138 mg/dL High 70-99 [facility] Comment on above: Performed By: #### L 500.4050, L501.2300, L501.9520, L100.0100 ####[facility] [address] [place], [address] Potassium [Moles/Vol] 4.4 mmol/L Normal 3.3-5.1 [facility] Comment on above: Performed By: #### L 500.4050, L501.2300, L501.9520, L100.0100 ####[facility] [address] [place], [address] Sodium [Moles/Vol] 129 mmol/L Low 133-145 [facility] Comment on above: Performed By: #### L 500.4050, L501.2300, L501.9520, L100.0100 ####[facility] [address] [place], [address] T BILI < 0.15 Normal 0.00-1.30 [facility] Comment on above: Performed By: #### L 500.4050, L501.2300, L501.9520, L100.0100 ####[facility] [address] [place], [address] T PROT 6.3 g/dL Normal 5.9-8.4 [facility] Comment on above: Performed By: #### L 500.4050, L501.2300, L501.9520, L100.0100 ####[facility] [address] [place], [address] Urea nitrogen [Mass/Vol] 19 mg/dL Normal 4-19 [facility] Comment on above: Performed By: #### L 500.4050, L501.2300, L501.9520, L100.0100 ####[facility] [address] [place], [address] Free T3on 07-18-2025 Free T3 [Mass/Vol] 2.6 pg/mL Normal 2.18-3.98 [facility] Comment on above: Performed By: #### L 501.67164 ####[facility] [address] [place], [address] Free J3Idtawnd By: Arnel Cano on 07-18-2025 Free T3 [Mass/Vol] 2.6 pg/mL 2.18-3.98 [facility] Ketones Test strip Ql (U)Ord ered By: Elana Granda on 07-18-2025 Ketones Ql (U) Negative Negative [facility] Laboratory - Chemistry and C hemistry - challengeOrdered By: Elana Granda on 07-18-2025 AST [Catalytic activity/Vol] 27 U/L <32 [facility] Magnesiumon 07-18-2025 Magnesium [Mass/Vol] 2.1 mg/dL Normal 1.5-2.2 [facility] Comment on above: Performed By: #### L 500.2500, L501.5200 ####[facility] [address] [place], [place], [address] Magnesium measurement (mass/ volume)Ordered By: Elana Granda on 07-18-2025 Magnesium (Unsp spec) [Mass/Vol] 2.1 mg/dL 1.5-2.2 [facility] Microscopic analysis of urin e for red blood cells (RBC)Ordered By: Elana Granda on 07-18-2025 Microscopic analysis of urine for red blood cells (RBC) 0-5 SEEN /hpf 0-5 [facility] Mucus LM Ql (Urine sed)Order ed By: Elana Granda on 07-18-2025 Mucus Ql (Urine sed) 0 SEEN /hpf [facility] Nitrite Test strip Ql (U)Ord ered By: Elana Granda on 07-18-2025 Nitrite Ql (U) Negative Negative [facility] Phosphoruson 07-18-2025 Phosphate [Mass/Vol] 3.6 mg/dL Normal 2.7-4.5 [facility] Comment on above: Performed By: #### L 500.4050, L501.2300, L501.9520, L100.0100 ####[facility] [address] [place], [address] Protein Test strip Ql (U)Ord ered By: Elana Granda on 07-18-2025 Protein Ql (U) 30 mg/dl High Negative [facility] Serum globulin measurementOr dered By: Elana Granda on 07-18-2025 Globulin (S) [Mass/Vol] 2.8 g/dL 2.2-4.2 [facility] Serum or plasma alanine hester otransferase (ALT) measurementOrdered By: Elana Granda on 07-18-2025 ALT [Catalytic activity/Vol] 13 U/L <35 [facility] Serum or plasma albumin marivel urement (mass/volume)Ordered By: Elana Granda on 07-18-2025 Albumin [Mass/Vol] 3.5 g/dL 3.4-4.8 [facility] Serum or plasma albumin/glob ulin mass ratioOrdered By: Elana Granda on 07-18-2025 Albumin/Globulin [Mass ratio] 1.2 {ratio} 0.9-2.4 [facility] Serum or plasma alkaline wai sphatase measurementOrdered By: Elana Granda on 07-18-2025 ALP [Catalytic activity/Vol] 81 U/L 35-104 [facility] Squamous epithelial cells de tection in urine sediment by light microscopyOrdered By: Elana Granda on 07-18-2025 Epithelial cells.squamous LM Ql (Urine sed) 0-5 SEEN /hpf 5-10 [facility] TSH DL <= 0.005 mIU/L QnOrde red By: Elana Granda on 07-18-2025 TSH Qn 0.077 uIU/mL Low 0.300-4.200 [facility] Thyroid Stim Hormone (TSH)on 07-18-2025 TSH 0.077 uIU/mL Low 0.300-4.200 [facility] Comment on above: Performed By: #### L 500.4050, L501.2300, L501.9520, L100.0100 ####[facility] [address] [place], [address] Total proteinOrdered By: Arpit Granda on 07-18-2025 Protein [Mass/Vol] 6.3 g/dL 5.9-8.4 [facility] Urinalysis, Completeon 07-18 EPI,SQUAMOUS 0-5 SEEN Normal 5-10 [facility] Comment on above: Order Comment: CLEAN CATCH Performed By: #### L 400.0001 ####[facility] [address] [place], [address] RBC 0-5 SEEN Normal 0-5 [facility] Comment on above: Order Comment: CLEAN CATCH Performed By: #### L 400.0001 ####[facility] [address] [place], [address] WBC 0-5 SEEN Normal 0-5 [facility] Comment on above: Order Comment: CLEAN CATCH Performed By: #### L 400.0001 ####[facility] [address] [place], [address] BACTERIA 0 SEEN Normal None Seen [facility] Comment on above: Order Comment: CLEAN CATCH Performed By: #### L 400.0001 ####[facility] [address] [place], [address] Mucus Ql (Urine sed) 0 SEEN Normal [facility] Comment on above: Order Comment: CLEAN CATCH Performed By: #### L 400.0001 ####[facility] [address] [place], [address] Urine clarityOrdered By: Arpit Granda on 07-18-2025 Clarity (U) Clear Clear [facility] Urine color determinationOrd ered By: Elana Granda on 07-18-2025 Color (U) Straw Yellow [facility] Urine glucose detectionOrder ed By: Elana Granda on 07-18-2025 Glucose Ql (U) Normal mg/dl Normal [facility] Urine leukocyte esterase det ection by dipstickOrdered By: Elana Granda on 07-18-2025 Leukocyte esterase Test strip Ql (U) Negative Negative [facility] Urine pHOrdered By: Elana kam on 07-18-2025 pH (U) 7.0 [pH] 5.0 - 8.0 [facility] Urine sediment bacteria coun t by microscopy (number/high power field)Ordered By: Elana rGanda on 07-18-2025 Bacteria LM.HPF (Urine sed) [#/Area] 0 /[HPF] None Seen [facility] Urine specific gravity measu rementOrdered By: Elana Granda on 07-18-2025 Specific gravity (U) [Rel density] 1.010 1.002-1.030 [facility] Urine urobilinogen measureme ntOrdered By: Elana Jesus Alberto on 07-18-2025 Urobilinogen Ql (U) Normal mg/dl Normal [facility] White blood cell countOrdere d By: Elana Granda on 07-18-2025 White blood cell count 0-5 SEEN /hpf 0-5 [facility] Absolute lymphocyte countOrd ered By: Ramakrishna Maher on 07-17-2025 Lymphocytes Auto (Unsp spec) [#/Vol] 1.39 10*3/uL 0.83-4.51 [facility] Absolute neutrophil countOrd ered By: Ramakrishnaglo Maher on 07-17-2025 Neutrophils (Bld) [#/Vol] 5.6 10*3/uL 2.0-7.7 [facility] Anion gap in Serum or Plasma Ordered By: Ramakrishnaglo Maher on 07-17-2025 Anion gap [Moles/Vol] 9 mmol/L 5-15 [facility] Automated lymphocyte count a s percentage of total leukocytesOrdered By: Ramakrishnaglo Maher on 07-17-2025 Lymphocytes/100 WBC Auto (Unsp spec) 18.0 % Low 19-41 [facility] BUN/creatinine ratioOrdered By: Ramakrishnaglo Maher on 07-17-2025 Urea nitrogen/Creatinine [Mass ratio] 11.9 mg/mg 10-20 [facility] Basophil percentageOrdered B y: Ramakrishna Maher on 07-17-2025 Basophils/100 WBC (Bld) 1.0 % 0-1 [facility] Bilirubin, totalOrdered By: Ramakrishnaglo Maher on 07-17-2025 Bilirubin [Mass/Vol] 0.20 mg/dL 0.00-1.30 [facility] CBC W/Diff, Automatedon 07-07 Absolute Lymph 1.39 X10 3/uL Normal 0.83-4.51 [facility] Comment on above: Performed By: #### L 503.6005, L500.4050, L100.0100 ####[facility] [address] [place], [address] Absolute Neut 5.6 X10 3/uL Normal 2.0-7.7 [facility] Comment on above: Performed By: #### L 503.6005, L500.4050, L100.0100 ####[facility] [address] [place], [address] Basophils/100 WBC (Bld) 1.0 % Normal 0-1 [facility] Comment on above: Performed By: #### L 503.6005, L500.4050, L100.0100 ####[facility] [address] [place], [address] Eosinophils/100 WBC (Bld) 1.6 % Normal 0-5 [facility] Comment on above: Performed By: #### L 503.6005, L500.4050, L100.0100 ####[facility] [address] [place], [address] Erythrocyte distribution width (RBC) [Ratio] 13.2 % Normal 11.6-14.6 [facility] Comment on above: Performed By: #### L 503.6005, L500.4050, L100.0100 ####[facility] [address] [place], [address] Hematocrit (Bld) [Volume fraction] 35.4 % Low 37-47 [facility] Comment on above: Performed By: #### L 503.6005, L500.4050, L100.0100 ####[facility] [address] [place], [address] Hemoglobin (Bld) [Mass/Vol] 11.0 g/dL Low 12.0-15.0 [facility] Comment on above: Performed By: #### L 503.6005, L500.4050, L100.0100 ####[facility] [address] [place], [address] IG% 0.300 Normal 0.0-0.9 [facility] Comment on above: Result Comment: IG% - Immature Granulocytes (promyelocytes, myelocytes andmetamyelocytes) > 1% indicates that a LEFT SHIFT is Present. Performed By: #### L 503.6005, L500.4050, L100.0100 ####[facility] [address] [place], [address] Lymphocytes/100 WBC (Bld) 18.0 % Low 19-41 [facility] Comment on above: Performed By: #### L 503.6005, L500.4050, L100.0100 ####[facility] [address] [place], [address] MCH (RBC) [Entitic mass] 26.7 pg Low 27.0-32.0 [facility] Comment on above: Performed By: #### L 503.6005, L500.4050, L100.0100 ####[facility] [address] [place], [address] MCHC (RBC) [Mass/Vol] 31.1 g/dL Low 32-36 [facility] Comment on above: Performed By: #### L 503.6005, L500.4050, L100.0100 ####[facility] [address] [place], [address] MCV (RBC) [Entitic vol] 85.9 fL Normal 81-99 [facility] Comment on above: Performed By: #### L 503.6005, L500.4050, L100.0100 ####[facility] [address] [place], [address] Monocytes/100 WBC (Bld) 6.6 % Normal 0-10 [facility] Comment on above: Performed By: #### L 503.6005, L500.4050, L100.0100 ####[facility] [address] [place], [address] Neutrophils/100 WBC (Bld) 72.5 % High 47-70 [facility] Comment on above: Performed By: #### L 503.6005, L500.4050, L100.0100 ####[facility] [address] [place], [address] Nucleated RBC (Bld) [#/Vol] 0 10*3/uL Normal 0-5 [facility] Comment on above: Performed By: #### L 503.6005, L500.4050, L100.0100 ####[facility] [address] [place], [address] Platelet mean volume (Bld) [Entitic vol] 10.1 fL Normal 6.2-12.0 [facility] Comment on above: Performed By: #### L 503.6005, L500.4050, L100.0100 ####[facility] [address] [place], [address] Platelets (Bld) [#/Vol] 254 10*3/uL Normal 150-450 [facility] Comment on above: Performed By: #### L 503.6005, L500.4050, L100.0100 ####[facility] [address] [place], [address] RBC (Bld) [#/Vol] 4.12 10*6/uL Low 4.2-5.4 [facility] Comment on above: Performed By: #### L 503.6005, L500.4050, L100.0100 ####[facility] [address] [place], [address] RDW SD 41.0 fl Normal 35.1-43.9 [facility] Comment on above: Performed By: #### L 503.6005, L500.4050, L100.0100 ####[facility] [address] [place], [address] WBC (Bld) [#/Vol] 7.7 10*3/uL Normal 4.4-11.0 [facility] Comment on above: Performed By: #### L 503.6005, L500.4050, L100.0100 ####[facility] [address] [place], [address] CPK Total, Creatine Kinaseon 07-17-2025 CPK TOTAL 401 U/L High 24-195 [facility] Comment on above: Performed By: #### L 501.3620 ####[facility] [address] [place], [address] Carbon dioxide, total [Moles /volume] in Central venous bloodOrdered By: Ramakrishna Maher on 07-17-2025 CO2 [Moles/Vol] 26.8 mmol/L 21.0-32.0 [facility] Chloride assayOrdered By: Ug o Maher on 07-17-2025 Chloride [Moles/Vol] 94 mmol/L Low 98-108 [facility] Comprehensive Metabolic Prof ilon 07-17-2025 Albumin [Mass/Vol] 3.9 g/dL Normal 3.4-4.8 [facility] Comment on above: Performed By: #### L 503.6005, L500.4050, L100.0100 ####[facility] [address] [place], [address] Albumin/Globulin [Mass ratio] 1.2 {ratio} Normal 0.9-2.4 [facility] Comment on above: Performed By: #### L 503.6005, L500.4050, L100.0100 ####[facility] [address] [place], [address] ALK PHOS 89 U/L Normal 35-104 [facility] Comment on above: Performed By: #### L 503.6005, L500.4050, L100.0100 ####[facility] [address] [place], [address] ALT [Catalytic activity/Vol] 16 U/L Normal <=34 [facility] Comment on above: Performed By: #### L 503.6005, L500.4050, L100.0100 ####[facility] [address] [place], [address] AST [Catalytic activity/Vol] 35 U/L High <=31 [facility] Comment on above: Result Comment: Hemo lysis present, Results??could be affected.?? Performed By: #### L 503.6005, L500.4050, L100.0100 ####[facility] [address] [place], [address] Bilirubin [Mass/Vol] 0.20 mg/dL Normal 0.00-1.30 [facility] Comment on above: Performed By: #### L 503.6005, L500.4050, L100.0100 ####[facility] [address] [place], [address] BUN/CRE 11.9 RATIO Normal 10-20 [facility] Comment on above: Performed By: #### L 503.6005, L500.4050, L100.0100 ####[facility] [address] [place], [address] Calcium [Mass/Vol] 8.7 mg/dL Normal 7.6-11.0 [facility] Comment on above: Performed By: #### L 503.6005, L500.4050, L100.0100 ####[facility] [address] [place], [address] Chloride [Moles/Vol] 94 mmol/L Low 98-108 [facility] Comment on above: Performed By: #### L 503.6005, L500.4050, L100.0100 ####[facility] [address] [place], [address] CO2 [Moles/Vol] 26.8 mmol/L Normal 21.0-32.0 [facility] Comment on above: Performed By: #### L 503.6005, L500.4050, L100.0100 ####[facility] [address] [place], [address] Creatinine [Mass/Vol] 1.73 mg/dL High 0.70-1.20 [facility] Comment on above: Performed By: #### L 503.6005, L500.4050, L100.0100 ####[facility] [address] [place], [address] ECRCL 37.32 ml/min Low 50-250 [facility] Comment on above: Performed By: #### L 503.6005, L500.4050, L100.0100 ####[facility] [address] [place], [address] GAP 9 Normal 5-15 [facility] Comment on above: Performed By: #### L 503.6005, L500.4050, L100.0100 ####[facility] [address] [place], [address] GFR/1.73 sq M.predicted among non-blacks MDRD (S/P/Bld) [Vol rate/Area] 32 mL/min/{1.73_m2} Low >60 [facility] Comment on above: Result Comment: mL/m in/1.73m2 CKD-EPI Creatinine Equation (2020) Performed By: #### L 503.6005, L500.4050, L100.0100 ####[facility] [address] [place], [address] Globulin (S) [Mass/Vol] 3.2 g/dL Normal 2.2-4.2 [facility] Comment on above: Performed By: #### L 503.6005, L500.4050, L100.0100 ####[facility] [address] [place], [address] Glucose [Mass/Vol] 88 mg/dL Normal 70-99 [facility] Comment on above: Performed By: #### L 503.6005, L500.4050, L100.0100 ####[facility] [address] [place], [address] Potassium [Moles/Vol] 5.9 mmol/L High 3.3-5.1 [facility] Comment on above: Result Comment: Hemo lysis present, Results??could be affected.?? Performed By: #### L 503.6005, L500.4050, L100.0100 ####[facility] [address] [place], [address] Sodium [Moles/Vol] 130 mmol/L Low 133-145 [facility] Comment on above: Performed By: #### L 503.6005, L500.4050, L100.0100 ####[facility] [address] [place], [address] T PROT 7.1 g/dL Normal 5.9-8.4 [facility] Comment on above: Performed By: #### L 503.6005, L500.4050, L100.0100 ####[facility] [address] [place], [address] Urea nitrogen [Mass/Vol] 21 mg/dL High 4-19 [facility] Comment on above: Performed By: #### L 503.6005, L500.4050, L100.0100 ####[facility] [address] [place], [address] Emergency Department Summary on 07-17-2025 Emergency Department Summary Normal [facility] Eosinophil percentageOrdered By: Ramakrishna Maher on 07-17-2025 Eosinophils/100 WBC (Bld) 1.6 % 0-5 [facility] Erythrocyte distribution wid th ratioOrdered By: Ramakrishnaglo Maher on 07-17-2025 Erythrocyte distribution width (RBC) [Ratio] 13.2 % 11.6-14.6 [facility] Erythrocyte distribution wid th standard deviationOrdered By: Ramakrishnaglo Maher on 07-17-2025 Erythrocyte distribution width (RBC) [Ratio] 41.0 fl 35.1-43.9 [facility] Glomerular filtration rate ( GFR) estimation/1.73 sq m using serum, plasma, or whole bOrdered By: Ramakrishnaglo Maher on 07-17-2025 GFR/1.73 sq M.predicted among non-blacks MDRD (S/P/Bld) [Vol rate/Area] 32 mL/min/{1.73_m2} Low >60 [facility] Comment on above: mL/min/1.73m2 CKD-EP I Creatinine Equation (2020) H AND P Exam - Hospital[place] 07-17-2025 H&P Exam - Hospitalist Normal [facility] Hematocrit Auto (Bld) [Volum e fraction]Ordered By: Ramakrishnaglo Maher on 07-17-2025 Hematocrit (Bld) [Volume fraction] 35.4 % Low 37-47 [facility] Hemoglobin measurementOrdere d By: Ramakrishnaglo Maher on 07-17-2025 Hemoglobin (Bld) [Mass/Vol] 11.0 g/dL Low 12.0-15.0 [facility] Immature granulocytes/100 WB C Auto (Bld)Ordered By: Ramakrishnaglo Maher on 07-17-2025 Immature granulocytes/100 WBC (Bld) 0.300 % 0.0-0.9 [facility] Comment on above: IG% - Immature Granu locytes (promyelocytes, myelocytes and metamyelocytes) > 1% indicates that a LEFT SHIFT is Present. Laboratory - Chemistry and C hemistry - challengeOrdered By: Ramakrishnaglo Maher on 07-17-2025 AST [Catalytic activity/Vol] 35 U/L High <32 [facility] Comment on above: Hemolysis present, R esults could be affected. Lactic Acidon 07-17-2025 Lactate [Moles/Vol] mmol/L Normal 0.0-2.0 [facility] Comment on above: Order Comment: Y Performed By: #### L 503.6005, L500.4050, L100.0100 ####[facility] [address] [place], [address] Lactic acid measurementOrder ed By: Ramakrishnaglo Maher on 07-17-2025 Lactate [Moles/Vol] mmol/L 0.0-2.0 [facility] MCV (mean corpuscular volume ) determinationOrdered By: Ramakrishna Maher on 07-17-2025 MCV (RBC) [Entitic vol] 85.9 fL 81-99 [facility] Mean corpuscular hemoglobin (MCH) determinationOrdered By: [facility] on 07-17-2025 MCH (RBC) [Entitic mass] 26.7 pg Low 27.0-32.0 [facility] Mean corpuscular hemoglobin concentration (MCHC) determinationOrdered By: [facility] on 07-17-2025 MCHC (RBC) [Mass/Vol] 31.1 g/dL Low 32-36 [facility] Mean platelet volume determi nationOrdered By: [facility] on 07-17-2025 Platelet mean volume (Bld) [Entitic vol] 10.1 fL 6.2-12.0 [facility] Monocyte percentageOrdered B y: Ramakrishnaglo Maher on 07-17-2025 Monocytes/100 WBC (Bld) 6.6 % 0-10 [facility] Neutrophil percentageOrdered By: [facility] on 07-17-2025 Neutrophils/100 WBC (Bld) 72.5 % High 47-70 [facility] Nucleated red blood cell per centageOrdered By: [facility] on 07-17-2025 Nucleated RBC/100 WBC (Bld) [Ratio] 0 % 0-5 [facility] Platelet countOrdered By: [facility] on 07-17-2025 Platelets (Bld) [#/Vol] 254 10*3/uL 150-450 [facility] Potassium measurement (mass/ volume)Ordered By: Ramakrishna [facility] on 07-17-2025 Potassium (Unsp spec) [Mass/Vol] 5.9 mmol/L High 3.3-5.1 [facility] Comment on above: Hemolysis present, R esults could be affected. RBC Auto (Bld) [#/Vol]Ordere d By: Ramakrishna Maher on 07-17-2025 RBC (Bld) [#/Vol] 4.12 10*6/uL Low 4.2-5.4 [facility] Serum creatinine measurement (mass/volume)Ordered By: Ramakrishna Maher on 07-17-2025 Creatinine [Mass/Vol] 1.73 mg/dL High 0.70-1.20 [facility] Serum globulin measurementOr dered By: Ramakrishna Maher on 07-17-2025 Globulin (S) [Mass/Vol] 3.2 g/dL 2.2-4.2 [facility] Serum glucose measurement (m ass/volume)Ordered By: Ramakrishna Maher on 07-17-2025 Glucose [Mass/Vol] 88 mg/dL 70-99 [facility] Serum or plasma alanine hester otransferase (ALT) measurementOrdered By: Ramakrishna Maher on 07-17-2025 ALT [Catalytic activity/Vol] 16 U/L <35 [facility] Serum or plasma albumin marivel urement (mass/volume)Ordered By: Ramakrishna Maher 07-17-2025 Albumin [Mass/Vol] 3.9 g/dL 3.4-4.8 [facility] Serum or plasma albumin/glob ulin mass ratioOrdered By: Ramakrishna Maher 07-17-2025 Albumin/Globulin [Mass ratio] 1.2 {ratio} 0.9-2.4 [facility] Serum or plasma alkaline wai sphatase measurementOrdered By: Ramakrishna Maher on 07-17-2025 ALP [Catalytic activity/Vol] 89 U/L 35-104 [facility] Serum or plasma calcium marivel urement (mass/volume)Ordered By: Ramakrishna Maher 07-17-2025 Calcium [Mass/Vol] 8.7 mg/dL 7.6-11.0 [facility] Serum or plasma creatine kin ase activityOrdered By: Ramakrishna Maher on 07-17-2025 CK [Catalytic activity/Vol] 401 U/L High 24-195 [facility] Serum or plasma urea nitroge n measurement (mass/volume)Ordered By: Ramakrishna Maher on 07-17-2025 Urea nitrogen [Mass/Vol] 21 mg/dL High 4-19 [facility] Sodium levelOrdered By: Ramakrishna Maher on 07-17-2025 Sodium [Moles/Vol] 130 mmol/L Low 133-145 [facility] Total proteinOrdered By: Ramakrishna Maher on 07-17-2025 Protein [Mass/Vol] 7.1 g/dL 5.9-8.4 [facility] White blood cell (WBC) count Ordered By: Ramakrishna Maher on 07-17-2025 WBC (Bld) [#/Vol] 7.7 10*3/uL 4.4-11.0 [facility] Absolute lymphocyte countOrd ered By: Mihaela Simpson on 06-26-2025 Lymphocytes Auto (Unsp spec) [#/Vol] 2.19 10*3/uL 0.83-4.51 [facility] Absolute neutrophil countOrd ered By: Mihaela Simpson on 06-26-2025 Neutrophils (Bld) [#/Vol] 7.4 10*3/uL 2.0-7.7 [facility] Automated lymphocyte count a s percentage of total leukocytesOrdered By: Mihaela Simpson on 06-26-2025 Lymphocytes/100 WBC Auto (Unsp spec) 21.1 % 19- [facility] Basophil percentageOrdered B y: Mihaela Simpson on 06-26-2025 Basophils/100 WBC (Bld) 0.8 % 0-1 [facility] CBC W/Diff, Automatedon 06-07 Absolute Lymph 2.19 X10 3/uL Normal 0.83-4.51 [facility] Comment on above: Performed By: #### L 100.9950, L503.6550, L100.0100, L503.0106, L506.1001, L503.6030 ####[facility] [address] [place], [place], [id number] Absolute Neut 7.4 X10 3/uL Normal 2.0-7.7 [facility] Comment on above: Performed By: #### L 100.9950, L503.6550, L100.0100, L503.0106, L506.1001, L503.6030 ####[facility] [address] [place], [address] Basophils/100 WBC (Bld) 0.8 % Normal 0-1 [facility] Comment on above: Performed By: #### L 100.9950, L503.6550, L100.0100, L503.0106, L506.1001, L503.6030 ####[facility] [address] [place], [address] Eosinophils/100 WBC (Bld) 1.4 % Normal 0-5 [facility] Comment on above: Performed By: #### L 100.9950, L503.6550, L100.0100, L503.0106, L506.1001, L503.6030 ####[facility] [address] [place], [address] Erythrocyte distribution width (RBC) [Ratio] 13.9 % Normal 11.6-14.6 [facility] Comment on above: Performed By: #### L 100.9950, L503.6550, L100.0100, L503.0106, L506.1001, L503.6030 ####[facility] [address] [place], [address] Hematocrit (Bld) [Volume fraction] 35.8 % Low 37-47 [facility] Comment on above: Performed By: #### L 100.9950, L503.6550, L100.0100, L503.0106, L506.1001, L503.6030 ####[facility] [address] [place], [address] Hemoglobin (Bld) [Mass/Vol] 11.1 g/dL Low 12.0-15.0 [facility] Comment on above: Performed By: #### L 100.9950, L503.6550, L100.0100, L503.0106, L506.1001, L503.6030 ####[facility] [address] [place], [address] IG% 0.300 Normal 0.0-0.9 [facility] Comment on above: Result Comment: IG% - Immature Granulocytes (promyelocytes, myelocytes andmetamyelocytes) > 1% indicates that a LEFT SHIFT is Present. Performed By: #### L 100.9950, L503.6550, L100.0100, L503.0106, L506.1001, L503.6030 ####[facility] [address] [place], [address] Lymphocytes/100 WBC (Bld) 21.1 % Normal 19-41 [facility] Comment on above: Performed By: #### L 100.9950, L503.6550, L100.0100, L503.0106, L506.1001, L503.6030 ####[facility] [address] [place], [address] MCH (RBC) [Entitic mass] 27.0 pg Normal 27.0-32.0 [facility] Comment on above: Performed By: #### L 100.9950, L503.6550, L100.0100, L503.0106, L506.1001, L503.6030 ####[facility] [address] [place], [address] MCHC (RBC) [Mass/Vol] 31.0 g/dL Low 32-36 [facility] Comment on above: Performed By: #### L 100.9950, L503.6550, L100.0100, L503.0106, L506.1001, L503.6030 ####[facility] [address] [place], [address] MCV (RBC) [Entitic vol] 87.1 fL Normal 81-99 [facility] Comment on above: Performed By: #### L 100.9950, L503.6550, L100.0100, L503.0106, L506.1001, L503.6030 ####[facility] [address] [place], [address] Monocytes/100 WBC (Bld) 5.4 % Normal 0-10 [facility] Comment on above: Performed By: #### L 100.9950, L503.6550, L100.0100, L503.0106, L506.1001, L503.6030 ####[facility] [address] [place], [address] Neutrophils/100 WBC (Bld) 71.0 % High 47-70 [facility] Comment on above: Performed By: #### L 100.9950, L503.6550, L100.0100, L503.0106, L506.1001, L503.6030 ####[facility] [address] [place], [address] Nucleated RBC (Bld) [#/Vol] 0 10*3/uL Normal 0-5 [facility] Comment on above: Performed By: #### L 100.9950, L503.6550, L100.0100, L503.0106, L506.1001, L503.6030 ####[facility] [address] [place], [address] Platelet mean volume (Bld) [Entitic vol] 10.2 fL Normal 6.2-12.0 [facility] Comment on above: Performed By: #### L 100.9950, L503.6550, L100.0100, L503.0106, L506.1001, L503.6030 ####[facility] [address] [place], [address] Platelets (Bld) [#/Vol] 332 10*3/uL Normal 150-450 [facility] Comment on above: Performed By: #### L 100.9950, L503.6550, L100.0100, L503.0106, L506.1001, L503.6030 ####[facility] [address] [place], [address] RBC (Bld) [#/Vol] 4.11 10*6/uL Low 4.2-5.4 [facility] Comment on above: Performed By: #### L 100.9950, L503.6550, L100.0100, L503.0106, L506.1001, L503.6030 ####[facility] [address] [place], [address] RDW SD 44.4 fl High 35.1-43.9 [facility] Comment on above: Performed By: #### L 100.9950, L503.6550, L100.0100, L503.0106, L506.1001, L503.6030 ####[facility] [address] [place], [address] WBC (Bld) [#/Vol] 10.4 10*3/uL Normal 4.4-11.0 [facility] Comment on above: Performed By: #### L 100.9950, L503.6550, L100.0100, L503.0106, L506.1001, L503.6030 ####[facility] [address] [place], [address] Eosinophil percentageOrdered By: Mihaela Simpson on 06-26-2025 Eosinophils/100 WBC (Bld) 1.4 % 0-5 [facility] Erythrocyte distribution wid th ratioOrdered By: Mihaela Simpson on 06-26-2025 Erythrocyte distribution width (RBC) [Ratio] 13.9 % 11.6-14.6 [facility] Erythrocyte distribution wid th standard deviationOrdered By: Mihaela Simpson on 06-26-2025 Erythrocyte distribution width (RBC) [Ratio] 44.4 fl High 35.1-43.9 [facility] Ferritinon 06-26-2025 Ferritin [Mass/Vol] 150 ng/mL Normal 22-378 [facility] Comment on above: Performed By: #### L 100.9950, L503.6550, L100.0100, L503.0106, L506.1001, L503.6030 ####[facility] [address] [place], [address] Hematocrit Auto (Bld) [Volum e fraction]Ordered By: Mihaela Simpson on 06-26-2025 Hematocrit (Bld) [Volume fraction] 35.8 % Low 37-47 [facility] Hemoglobin measurementOrdere d By: Mihaela Simpson on 06-26-2025 Hemoglobin (Bld) [Mass/Vol] 11.1 g/dL Low 12.0-15.0 [facility] Immature granulocytes/100 WB C Auto (Bld)Ordered By: Mihaelagermán Simpson on 06-26-2025 Immature granulocytes/100 WBC (Bld) 0.300 % 0.0-0.9 [facility] Comment on above: IG% - Immature Granu locytes (promyelocytes, myelocytes and metamyelocytes) > 1% indicates that a LEFT SHIFT is Present. Internal Medicine Office Vis iton 06-26-2025 Internal Medicine Office Visit Normal [facility] Iron measurement (mass/mass) Ordered By: Mihaela Simpson on 06-26-2025 Iron (Unsp spec) [Mass/Mass] 40 ug/dL Low 50-170 [facility] Iron+Iron Binding Capacityon 06-26-2025 Iron [Mass/Vol] 40 ug/dL Low 50-170 [facility] Comment on above: Performed By: #### L 100.9950, L503.6550, L100.0100, L503.0106, L506.1001, L503.6030 ####[facility] [address] [place], [address] IRON SATURATION 16.0 Normal 13-59 [facility] Comment on above: Performed By: #### L 100.9950, L503.6550, L100.0100, L503.0106, L506.1001, L503.6030 ####[facility] [address] [place], [address] TIBC 256 ug/dL Normal 250-450 [facility] Comment on above: Performed By: #### L 100.9950, L503.6550, L100.0100, L503.0106, L506.1001, L503.6030 ####[facility] [address] [place], [address] UIBC 216 ug/dL Low 228-428 [facility] Comment on above: Performed By: #### L 100.9950, L503.6550, L100.0100, L503.0106, L506.1001, L503.6030 ####[facility] [address] [place], [address] MCV (mean corpuscular volume ) determinationOrdered By: Mihaela Simpson on 06-26-2025 MCV (RBC) [Entitic vol] 87.1 fL 81-99 [facility] Mean corpuscular hemoglobin (MCH) determinationOrdered By: Mihaela Simpson on 06-26-2025 MCH (RBC) [Entitic mass] 27.0 pg 27.0-32.0 [facility] Mean corpuscular hemoglobin concentration (MCHC) determinationOrdered By: Mihaela Simpson on 06-26-2025 MCHC (RBC) [Mass/Vol] 31.0 g/dL Low 32-36 [facility] Mean platelet volume determi nationOrdered By: Mihaela Simpson on 06-26-2025 Platelet mean volume (Bld) [Entitic vol] 10.2 fL 6.2-12.0 [facility] Monocyte percentageOrdered B y: Mihaela Simpson on 06-26-2025 Monocytes/100 WBC (Bld) 5.4 % 0-10 [facility] Neutrophil percentageOrdered By: Mihaela Simpson on 06-26-2025 Neutrophils/100 WBC (Bld) 71.0 % High 47-70 [facility] No Panel InformationOrdered By: Miheala Simpson on 06-26-2025 Unsaturated Iron Binding Capacity 216 ug/dL Low 228-428 [facility] Nucleated red blood cell per centageOrdered By: Mihaela Simpson on 06-26-2025 Nucleated RBC/100 WBC (Bld) [Ratio] 0 % 0-5 [facility] Platelet countOrdered By: Clifton Simpson on 06-26-2025 Platelets (Bld) [#/Vol] 332 10*3/uL 150-450 [facility] RBC Auto (Bld) [#/Vol]Ordere d By: Mihaela Simpson on 06-26-2025 RBC (Bld) [#/Vol] 4.11 10*6/uL Low 4.2-5.4 [facility] Retic Panelon 06-26-2025 IM RET FRACTION 7.70 Normal 3.00-15.90 [facility] Comment on above: Performed By: #### L 100.9950, L503.6550, L100.0100, L503.0106, L506.1001, L503.6030 ####[facility] [address] [place], [place], [id number] RET-HE 27.3 pg Low 30-35 [facility] Comment on above: Performed By: #### L 100.9950, L503.6550, L100.0100, L503.0106, L506.1001, L503.6030 ####[facility] [address] [place], [place], [phone]) Retic Count 2.20 High 0.5-1.5 [facility] Comment on above: Performed By: #### L 100.9950, L503.6550, L100.0100, L503.0106, L506.1001, L503.6030 ####[facility] [address] [place], [place], [id number] Reticulocyte hemoglobin equi valent (RET-He) measurementOrdered By: Mihaela Simpson on 06-26-2025 Hemoglobin (Reticulocytes) [Entitic mass] 27.3 pg Low 30-35 [facility] Reticulocytes Auto (Bld) [#/ Vol]Ordered By: Mihaela Simpson on 06-26-2025 Reticulocytes/100 RBC (Bld) 2.20 % High 0.5-1.5 [facility] Serum or plasma ferritin josé miguel surement (mass/volume)Ordered By: Mihaela Simpson on 06-26-2025 Ferritin [Mass/Vol] 150 ng/mL 22-378 [facility] Serum or plasma iron saturat ion measurement (mass fraction)Ordered By: Mihaela Simpson on 06-26-2025 Iron saturation [Mass fraction] 16.0 % 13-59 [facility] Vitamin B12on 06-26-2025 Cobalamin (Vitamin B12) [Mass/Vol] 472 pg/mL Normal 180-914 [facility] Comment on above: Performed By: #### L 100.9950, L503.6550, L100.0100, L503.0106, L506.1001, L503.6030 ####[facility] [address] [place], [place], [id number] Vitamin B12 ser/plasOrdered By: Mihaela Simpson on 06-26-2025 Cobalamin (Vitamin B12) [Mass/Vol] 472 pg/mL 180-914 [facility] Vitamin D,25 Hydroxyon 06-26 Vitamin D 25-OH 69.4 ng/mL Normal 30-100 [facility] Comment on above: Result Comment: Shania min D StatusDeficiency: <20 ng/mL (50nmol/L)Insufficiency: 20-30 ng/mL (50-75 nmol/L)Sufficiency: 30-100 ng/mL (75-250 nmol/L)Toxicity: >100 ng/mL (>250 nmol/L) Performed By: #### L 100.9950, L503.6550, L100.0100, L503.0106, L506.1001, L503.6030 ####[facility] [address] [place], [address] White blood cell (WBC) count Ordered By: Mihaela Simpson on 06-26-2025 WBC (Bld) [#/Vol] 10.4 10*3/uL 4.4-11.0 [facility] Pulmonary Visit Reporton Pulmonary Visit Report Normal [facility] Thyroidon 05-07-2025 Thyroid Normal [facility] ECG 12-LEADon 04-30-2025 ECG 12-LEAD Sinus Rhythm -Right atrial enlargement. BORDERLINE Normal [facility] No Panel Informationon 04-30 Sinus Rhythm -Right atrial enlargement. BORDERLINE [facility] Low Dose CT Lung Screeningon 04-17-[address] Lung Screening Normal [facility] Absolute lymphocyte countOrd ered By: Jennifer Gordon on 2025 Lymphocytes Auto (Unsp spec) [#/Vol] 1.98 10*3/uL 0.83-4.51 [facility] Absolute neutrophil countOrd ered By: Jennifer Gordon on 2025 Neutrophils (Bld) [#/Vol] 7.8 10*3/uL High 2.0-7.7 [facility] Anion gap in Serum or Plasma Ordered By: Jennifer Gordon on 2025 Anion gap [Moles/Vol] 10 mmol/L 5-15 [facility] Automated lymphocyte count a s percentage of total leukocytesOrdered By: Jennifer Gordon on 2025 Lymphocytes/100 WBC Auto (Unsp spec) 18.1 % Low 19-41 [facility] BUN/creatinine ratioOrdered By: Jennifer Gordon on 2025 Urea nitrogen/Creatinine [Mass ratio] 13.9 mg/mg 10-20 [facility] Basophil percentageOrdered B y: Jennifer Gordon on 2025 Basophils/100 WBC (Bld) 1.0 % 0-1 [facility] Bilirubin Test strip Ql (U)O rdered By: Jennifer Gordon on 2025 Bilirubin Ql (U) Negative Negative [facility] Bilirubin, totalOrdered By: Jennifer Gordon on 2025 Bilirubin [Mass/Vol] 0.17 mg/dL 0.00-1.30 [facility] CBC W/Diff, Automatedon 04-06 Absolute Lymph 1.98 X10 3/uL Normal 0.83-4.51 [facility] Comment on above: Performed By: #### L 100.0100, L500.4100, L501.9985, L500.4050 ####[facility] [address] [place], [address] Absolute Neut 7.8 X10 3/uL High 2.0-7.7 [facility] Comment on above: Performed By: #### L 100.0100, L500.4100, L501.9985, L500.4050 ####[facility] [address] [place], [address] Basophils/100 WBC (Bld) 1.0 % Normal 0-1 [facility] Comment on above: Performed By: #### L 100.0100, L500.4100, L501.9985, L500.4050 ####[facility] [address] [place], [address] Eosinophils/100 WBC (Bld) 2.2 % Normal 0-5 [facility] Comment on above: Performed By: #### L 100.0100, L500.4100, L501.9985, L500.4050 ####[facility] [address] [place], [address] Erythrocyte distribution width (RBC) [Ratio] 15.2 % High 11.6-14.6 [facility] Comment on above: Performed By: #### L 100.0100, L500.4100, L501.9985, L500.4050 ####[facility] [address] [place], [address] Hematocrit (Bld) [Volume fraction] 34.9 % Low 37-47 [facility] Comment on above: Performed By: #### L 100.0100, L500.4100, L501.9985, L500.4050 ####[facility] [address] [place], [address] Hemoglobin (Bld) [Mass/Vol] 10.5 g/dL Low 12.0-15.0 [facility] Comment on above: Performed By: #### L 100.0100, L500.4100, L501.9985, L500.4050 ####[facility] [address] [place], [address] IG% 0.500 Normal 0.0-0.9 [facility] Comment on above: Result Comment: IG% - Immature Granulocytes (promyelocytes, myelocytes andmetamyelocytes) > 1% indicates that a LEFT SHIFT is Present. Performed By: #### L 100.0100, L500.4100, L501.9985, L500.4050 ####[facility] [address] [place], [address] Lymphocytes/100 WBC (Bld) 18.1 % Low 19-41 [facility] Comment on above: Performed By: #### L 100.0100, L500.4100, L501.9985, L500.4050 ####[facility] [address] [place], [address] MCH (RBC) [Entitic mass] 25.9 pg Low 27.0-32.0 [facility] Comment on above: Performed By: #### L 100.0100, L500.4100, L501.9985, L500.4050 ####[facility] [address] [place], [address] MCHC (RBC) [Mass/Vol] 30.1 g/dL Low 32-36 [facility] Comment on above: Performed By: #### L 100.0100, L500.4100, L501.9985, L500.4050 ####[facility] [address] [place], [address] MCV (RBC) [Entitic vol] 86.2 fL Normal 81-99 [facility] Comment on above: Performed By: #### L 100.0100, L500.4100, L501.9985, L500.4050 ####[facility] [address] [place], [address] Monocytes/100 WBC (Bld) 7.0 % Normal 0-10 [facility] Comment on above: Performed By: #### L 100.0100, L500.4100, L501.9985, L500.4050 ####[facility] [address] [place], [address] Neutrophils/100 WBC (Bld) 71.2 % High 47-70 [facility] Comment on above: Performed By: #### L 100.0100, L500.4100, L501.9985, L500.4050 ####[facility] [address] [place], [address] Nucleated RBC (Bld) [#/Vol] 0 10*3/uL Normal 0-5 [facility] Comment on above: Performed By: #### L 100.0100, L500.4100, L501.9985, L500.4050 ####[facility] [address] [place], [address] Platelet mean volume (Bld) [Entitic vol] 10.5 fL Normal 6.2-12.0 [facility] Comment on above: Performed By: #### L 100.0100, L500.4100, L501.9985, L500.4050 ####[facility] [address] [place], [address] Platelets (Bld) [#/Vol] 347 10*3/uL Normal 150-450 [facility] Comment on above: Performed By: #### L 100.0100, L500.4100, L501.9985, L500.4050 ####[facility] [address] [place], [address] RBC (Bld) [#/Vol] 4.05 10*6/uL Low 4.2-5.4 [facility] Comment on above: Performed By: #### L 100.0100, L500.4100, L501.9985, L500.4050 ####[facility] [address] [place], [address] RDW SD 47.7 fl High 35.1-43.9 [facility] Comment on above: Performed By: #### L 100.0100, L500.4100, L501.9985, L500.4050 ####[facility] [address] [place], [address] WBC (Bld) [#/Vol] 10.9 10*3/uL Normal 4.4-11.0 [facility] Comment on above: Performed By: #### L 100.0100, L500.4100, L501.9985, L500.4050 ####[facility] [address] [place], [address] Calculated very low density lipoprotein (VLDL) cholesterol measurementOrdered By: Jennifer Heidi on 2025 Calculated very low density lipoprotein (VLDL) cholesterol measurement 32 mg/dL 5-40 [facility] Carbon dioxide, total [Moles /volume] in Central venous bloodOrdered By: Jennifer Heidi on 2025 CO2 [Moles/Vol] 29.0 mmol/L 21.0-32.0 [facility] Chloride assayOrdered By: Al ycia Heidi on 2025 Chloride [Moles/Vol] 97 mmol/L Low 98-108 [facility] Comprehensive Metabolic Prof ilon 2025 Albumin [Mass/Vol] 4.2 g/dL Normal 3.4-4.8 [facility] Comment on above: Performed By: #### L 100.0100, L500.4100, L501.9985, L500.4050 ####[facility] [address] [place], [address] Albumin/Globulin [Mass ratio] 1.3 {ratio} Normal 0.9-2.4 [facility] Comment on above: Performed By: #### L 100.0100, L500.4100, L501.9985, L500.4050 ####[facility] [address] [place], [address] ALK PHOS 80 U/L Normal 35-104 [facility] Comment on above: Performed By: #### L 100.0100, L500.4100, L501.9985, L500.4050 ####[facility] [address] [place], [address] ALT [Catalytic activity/Vol] 27 U/L Normal <=34 [facility] Comment on above: Performed By: #### L 100.0100, L500.4100, L501.9985, L500.4050 ####[facility] [address] [place], [address] AST [Catalytic activity/Vol] 27 U/L Normal <=31 [facility] Comment on above: Performed By: #### L 100.0100, L500.4100, L501.9985, L500.4050 ####[facility] [address] [place], [address] Bilirubin [Mass/Vol] 0.17 mg/dL Normal 0.00-1.30 [facility] Comment on above: Performed By: #### L 100.0100, L500.4100, L501.9985, L500.4050 ####[facility] [address] [place], [address] BUN/CRE 13.9 RATIO Normal 10-20 [facility] Comment on above: Performed By: #### L 100.0100, L500.4100, L501.9985, L500.4050 ####[facility] [address] [place], [address] Calcium [Mass/Vol] 9.5 mg/dL Normal 7.6-11.0 [facility] Comment on above: Performed By: #### L 100.0100, L500.4100, L501.9985, L500.4050 ####[facility] [address] [place], [address] Chloride [Moles/Vol] 97 mmol/L Low 98-108 [facility] Comment on above: Performed By: #### L 100.0100, L500.4100, L501.9985, L500.4050 ####[facility] [address] [place], [address] CO2 [Moles/Vol] 29.0 mmol/L Normal 21.0-32.0 [facility] Comment on above: Performed By: #### L 100.0100, L500.4100, L501.9985, L500.4050 ####[facility] [address] [place], [address] Creatinine [Mass/Vol] 1.47 mg/dL High 0.70-1.20 [facility] Comment on above: Performed By: #### L 100.0100, L500.4100, L501.9985, L500.4050 ####[facility] [address] [place], [address] GAP 10 Normal 5-15 [facility] Comment on above: Performed By: #### L 100.0100, L500.4100, L501.9985, L500.4050 ####[facility] [address] [place], [address] GFR/1.73 sq M.predicted among non-blacks MDRD (S/P/Bld) [Vol rate/Area] 39 mL/min/{1.73_m2} Low >60 [facility] Comment on above: Result Comment: mL/m in/1.73m2 CKD-EPI Creatinine Equation (2020) Performed By: #### L 100.0100, L500.4100, L501.9985, L500.4050 ####[facility] [address] [place], [address] Globulin (S) [Mass/Vol] 3.3 g/dL Normal 2.2-4.2 [facility] Comment on above: Performed By: #### L 100.0100, L500.4100, L501.9985, L500.4050 ####[facility] [address] [place], [address] Glucose [Mass/Vol] 98 mg/dL Normal 70-99 [facility] Comment on above: Performed By: #### L 100.0100, L500.4100, L501.9985, L500.4050 ####[facility] [address] [place], [address] Potassium [Moles/Vol] 5.6 mmol/L High 3.3-5.1 [facility] Comment on above: Performed By: #### L 100.0100, L500.4100, L501.9985, L500.4050 ####[facility] [address] [place], [address] Sodium [Moles/Vol] 135 mmol/L Normal 133-145 [facility] Comment on above: Performed By: #### L 100.0100, L500.4100, L501.9985, L500.4050 ####[facility] [address] [place], [address] T PROT 7.5 g/dL Normal 5.9-8.4 [facility] Comment on above: Performed By: #### L 100.0100, L500.4100, L501.9985, L500.4050 ####[facility] [address] [place], [address] Urea nitrogen [Mass/Vol] 20 mg/dL High 4-19 [facility] Comment on above: Performed By: #### L 100.0100, L500.4100, L501.9985, L500.4050 ####[facility] [address] [place], [address] Eosinophil percentageOrdered By: Jennifer Gordon on 2025 Eosinophils/100 WBC (Bld) 2.2 % 0-5 [facility] Erythrocyte distribution wid th ratioOrdered By: Jennifer Gordon on 2025 Erythrocyte distribution width (RBC) [Ratio] 15.2 % High 11.6-14.6 [facility] Erythrocyte distribution wid th standard deviationOrdered By: Jennifer Gordon on 2025 Erythrocyte distribution width (RBC) [Ratio] 47.7 fl High 35.1-43.9 [facility] Glomerular filtration rate ( GFR) estimation/1.73 sq m using serum, plasma, or whole bOrdered By: Jennifer Gordon on 2025 GFR/1.73 sq M.predicted among non-blacks MDRD (S/P/Bld) [Vol rate/Area] 39 mL/min/{1.73_m2} Low >60 [facility] Comment on above: mL/min/1.73m2 CKD-EP I Creatinine Equation (2020) Hematocrit Auto (Bld) [Volum e fraction]Ordered By: Jennifer Gordon on 2025 Hematocrit (Bld) [Volume fraction] 34.9 % Low 37-47 [facility] Hemoglobin A1con 2025 HbA1c (Bld) [Mass fraction] 5.7 % Normal <=5.6 [facility] Comment on above: Result Comment: Norm al < 5.7 % Prediabetic 5.7 - 6.4 % Diabetic >or= 6.5 % Please note range changes. Performed By: #### L 100.0100, L500.4100, L501.9985, L500.4050 ####[facility] [address] [place], [address] Hemoglobin A1c percentageOrd ered By: Jennifer Gordon on 2025 HbA1c (Bld) [Mass fraction] 5.7 % <5.7 [facility] Comment on above: Normal < 5.7 % Predi abetic 5.7 - 6.4 % Diabetic >or= 6.5 % Please note range changes. Hemoglobin measurementOrdere d By: Jennifer Gordon on 2025 Hemoglobin (Bld) [Mass/Vol] 10.5 g/dL Low 12.0-15.0 [facility] Immature granulocytes/100 WB C Auto (Bld)Ordered By: Jennifer Gordon on 2025 Immature granulocytes/100 WBC (Bld) 0.500 % 0.0-0.9 [facility] Comment on above: IG% - Immature Granu locytes (promyelocytes, myelocytes and metamyelocytes) > 1% indicates that a LEFT SHIFT is Present. Ketones Test strip Ql (U)Ord ered By: Jennifer Gordon on 2025 Ketones Ql (U) Negative Negative [facility] LDL calc ser/plasOrdered By: Jennifer Gordon on 2025 Cholesterol in LDL [Mass/Vol] 137 mg/dL [facility] Comment on above: Bofzcolbur=445-032 m g/dL & Higher Tqyz=464 mg/dL or greater Laboratory - Chemistry and C hemistry - challengeOrdered By: Jennifer Gordon on 2025 AST [Catalytic activity/Vol] 27 U/L <32 [facility] Lipid Profileon 2025 CHOL:HDL 4.76 Normal [facility] Comment on above: Performed By: #### L 100.0100, L500.4100, L501.9985, L500.4050 ####[facility] [address] [place], [address] Cholesterol [Mass/Vol] 214 mg/dL High <=200 [facility] Comment on above: Result Comment: Chol esterol level, Desirable <200 mg/dLBorderline high cholesterol 200-239 mg/dLHigh cholesterol >=240 mg/dLRecommendations of the NCEP Adult Treatment Panel for thefollowing risk-cutoff thresholds for the [place] Americ[facility] hospitalulation. Performed By: #### L 100.0100, L500.4100, L501.9985, L500.4050 ####[facility] [address] [place], [address] Cholesterol in HDL [Mass/Vol] 45 mg/dL Normal [facility] Comment on above: Result Comment: Vibha onal Cholesterol Education Program (NCEP) guidelines:<40 mg/dL: Low HDL-cholesterol (major risk factor for CHD)>= 60 mg/dL: High HDL-cholesterol (negative risk factor forCHD)HDL-cholesterol is affected by a number of factors, e.g.smoking, exercise, hormones, sex and age. Performed By: #### L 100.0100, L500.4100, L501.9985, L500.4050 ####[facility] [address] [place], [address] Cholesterol in LDL [Mass/Vol] 137 mg/dL Normal [facility] Comment on above: Result Comment: Bord dqnmel=507-512 mg/dL Higher Yvpr=924 mg/dL or greater Performed By: #### L 100.0100, L500.4100, L501.9985, L500.4050 ####[facility] [address] [place], [address] Cholesterol in VLDL [Mass/Vol] 32 mg/dL Normal 5-40 [facility] Comment on above: Performed By: #### L 100.0100, L500.4100, L501.9985, L500.4050 ####[facility] [address] [place], [address] Triglyceride [Mass/Vol] 160 mg/dL Normal [facility] Comment on above: Result Comment: The drugs N-Acetylcysteine and Metamizole may falselydepress this assay.Normal range: <150 mg/dLBorderline High: 150-199 mg/dLHigh: 200-499 mg/dLVery High: >500 mg/dL Performed By: #### L 100.0100, L500.4100, L501.9985, L500.4050 ####[facility] [address] [place], [place], [id number] MCV (mean corpuscular volume ) determinationOrdered By: Jennifer Gordon on 2025 MCV (RBC) [Entitic vol] 86.2 fL 81-99 [facility] Mean corpuscular hemoglobin (MCH) determinationOrdered By: Jennifer Gordon on 2025 MCH (RBC) [Entitic mass] 25.9 pg Low 27.0-32.0 [facility] Mean corpuscular hemoglobin concentration (MCHC) determinationOrdered By: Jennifer Gordon on 2025 MCHC (RBC) [Mass/Vol] 30.1 g/dL Low 32-36 [facility] Mean platelet volume determi nationOrdered By: Jennifer Gordon on 2025 Platelet mean volume (Bld) [Entitic vol] 10.5 fL 6.2-12.0 [facility] Microscopic analysis of urin e for red blood cells (RBC)Ordered By: Jennifer Gordon on 2025 Microscopic analysis of urine for red blood cells (RBC) 0-5 SEEN /hpf 0-5 [facility] Monocyte percentageOrdered B y: Jennifer Gordon on 2025 Monocytes/100 WBC (Bld) 7.0 % 0-10 [facility] Mucus LM Ql (Urine sed)Order ed By: Jennifer Gordon on 2025 Mucus Ql (Urine sed) 0 SEEN /hpf [facility] Neutrophil percentageOrdered By: Jennifer Gordon on 2025 Neutrophils/100 WBC (Bld) 71.2 % High 47-70 [facility] Nitrite Test strip Ql (U)Ord ered By: Jennifer Gordon on 2025 Nitrite Ql (U) Negative Negative [facility] Nucleated red blood cell per centageOrdered By: Jennifer Gordon on 2025 Nucleated RBC/100 WBC (Bld) [Ratio] 0 % 0-5 [facility] Platelet countOrdered By: Felipe Gordon on 2025 Platelets (Bld) [#/Vol] 347 10*3/uL 150-450 [facility] Potassium measurement (mass/ volume)Ordered By: Jennifer Gordon on 2025 Potassium (Unsp spec) [Mass/Vol] 5.6 mmol/L High 3.3-5.1 [facility] Protein Test strip Ql (U)Ord ered By: Jennifer Gordon on 2025 Protein Ql (U) 100 mg/dl High Negative [facility] RBC Auto (Bld) [#/Vol]Ordere d By: Jennifer Gordon on 2025 RBC (Bld) [#/Vol] 4.05 10*6/uL Low 4.2-5.4 [facility] Screening total cholesterol/ high density lipoprotein (HDL) cholesterol ratioOrdered By: Jennifer Gordon on 2025 Cholesterol.total/Camille sterol in HDL [Mass ratio] 4.76 {ratio} [facility] Serum creatinine measurement (mass/volume)Ordered By: Jennifer Gordon on 2025 Creatinine [Mass/Vol] 1.47 mg/dL High 0.70-1.20 [facility] Serum globulin measurementOr dered By: Jennifer Gordon on 2025 Globulin (S) [Mass/Vol] 3.3 g/dL 2.2-4.2 [facility] Serum glucose measurement (m ass/volume)Ordered By: Jennifer Gordon on 2025 Glucose [Mass/Vol] 98 mg/dL 70-99 [facility] Serum or plasma alanine hester otransferase (ALT) measurementOrdered By: Jennifer Gordon on 2025 ALT [Catalytic activity/Vol] 27 U/L <35 [facility] Serum or plasma albumin marivel urement (mass/volume)Ordered By: Jennifer Gordon on 2025 Albumin [Mass/Vol] 4.2 g/dL 3.4-4.8 [facility] Serum or plasma albumin/glob ulin mass ratioOrdered By: Jennifer Gordon on 2025 Albumin/Globulin [Mass ratio] 1.3 {ratio} 0.9-2.4 [facility] Serum or plasma alkaline wai sphatase measurementOrdered By: Jennifer Gordon on 2025 ALP [Catalytic activity/Vol] 80 U/L 35-104 [facility] Serum or plasma calcium marivel urement (mass/volume)Ordered By: Jennifer Gordon on 2025 Calcium [Mass/Vol] 9.5 mg/dL 7.6-11.0 [facility] Serum or plasma cholesterol in HDL measurement (mass/volume)Ordered By: Jennifer Gordon on 2025 Cholesterol in HDL [Mass/Vol] 45 mg/dL >40 [facility] Comment on above: National Cholesterol Education Program (NCEP) guidelines:<40 mg/dL: Low HDL-cholesterol (major risk factor for CHD)>= 60 mg/dL: High HDL-cholesterol (negative risk factor for CHD)HDL-cholesterol is affected by a number of factors, e.g. smoking, exercise, hormones, sex and age. Serum or plasma cholesterol measurement (mass/volume)Ordered By: Jennifer Gordon on 2025 Cholesterol [Mass/Vol] 214 mg/dL High <201 [facility] Comment on above: Cholesterol level, D esirable <200 mg/dLBorderline high cholesterol 200-239 mg/dLHigh cholesterol >=240 mg/dLRecommendations of the NCEP Adult Treatment Panel for the following risk-cutoff thresholds for the [place] population. Serum or plasma urea nitroge n measurement (mass/volume)Ordered By: Jennifer Gordon on 2025 Urea nitrogen [Mass/Vol] 20 mg/dL High 4-19 [facility] Sodium levelOrdered By: Ashley Gordon on 2025 Sodium [Moles/Vol] 135 mmol/L 133-145 [facility] Squamous epithelial cells de tection in urine sediment by light microscopyOrdered By: Jennifer Gordon on 2025 Epithelial cells.squamous LM Ql (Urine sed) 0-5 SEEN /hpf - [facility] TSH DL <= 0.005 mIU/L QnOrde red By: Jennifer Gordon on 2025 TSH Qn 0.566 uIU/mL 0.300-4.200 [facility] Thyroid Stim Hormone (TSH)on 2025 TSH 0.566 uIU/mL Normal 0.300-4.200 [facility] Comment on above: Performed By: #### L 501.9520 ####[facility] [address] [place], [place], [id number] Total proteinOrdered By: Amadou Gordon on 2025 Protein [Mass/Vol] 7.5 g/dL 5.9-8.4 [facility] Triglycerides measurementOrd ered By: Jennifer Gordon on 2025 Triglyceride [Mass/Vol] 160 mg/dL <199 [facility] Comment on above: The drugs N-Acetylcy steine and Metamizole may falsely depress this assay. Normal range: <150 mg/dLBorderline High: 150-199 mg/dLHigh: 200-499 mg/dLVery High: >500 mg/dL Urinalysis, Completeon 04-16 EPI,SQUAMOUS 0-5 SEEN Normal 03-15 [facility] Comment on above: Order Comment: COLLE CTOR TO SPECIFY Performed By: #### L 400.0001 ####[facility] [address] [place], [address] RBC 0-5 SEEN Normal 0-5 [facility] Comment on above: Order Comment: MAE CTOR TO SPECIFY Performed By: #### L 400.0001 ####[facility] [address] [place], [address] WBC 0-5 SEEN Normal 0-5 [facility] Comment on above: Order Comment: MAE CTOR TO SPECIFY Performed By: #### L 400.0001 ####[facility] [address] [place], [address] BACTERIA 0 SEEN Normal None Seen [facility] Comment on above: Order Comment: MAE CTOR TO SPECIFY Performed By: #### L 400.0001 ####[facility] [address] [place], [address] Mucus Ql (Urine sed) 0 SEEN Normal [facility] Comment on above: Order Comment: MAE CTOR TO SPECIFY Performed By: #### L 400.0001 ####[facility] [address] [place], [address] Urine clarityOrdered By: Amadou Gordon on 2025 Clarity (U) Clear Clear [facility] Urine color determinationOrd ered By: Jennifer Gordon on 2025 Color (U) Straw Yellow [facility] Urine glucose detectionOrder ed By: Jennifer Gordon on 2025 Glucose Ql (U) Normal mg/dl Normal [facility] Urine leukocyte esterase det ection by dipstickOrdered By: Jennifer Gordon on 2025 Leukocyte esterase Test strip Ql (U) Negative Negative [facility] Urine pHOrdered By: Jennifer ayala on 2025 pH (U) 6.5 [pH] 5.0 - 8.0 [facility] Urine sediment bacteria coun t by microscopy (number/high power field)Ordered By: Jennifer Gordon on 2025 Bacteria LM.HPF (Urine sed) [#/Area] 0 /[HPF] None Seen [facility] Urine specific gravity measu rementOrdered By: Jennifer Gordon on 2025 Specific gravity (U) [Rel density] 1.010 1.002-1.030 [facility] Urine urobilinogen measureme ntOrdered By: Jennifer Gordon on 2025 Urobilinogen Ql (U) Normal mg/dl Normal [facility] White blood cell (WBC) count Ordered By: Jennifer Gordon on 2025 WBC (Bld) [#/Vol] 10.9 10*3/uL 4.4-11.0 [facility] White blood cell countOrdere d By: Jennifer Gordon on 2025 White blood cell count 0-5 SEEN /hpf 0-5 [facility] Internal Medicine Office Vis iton 04-15-2025 Internal Medicine Office Visit Normal [facility] MR CARDIAC MORPHOLOGY WITH A ND WITHOUT CONTRAST WITHOUT VELOCITY FLOWon 04-07-2025 MR CARDIAC MORPHOLOGY WITH AND WITHOUT CONTRAST WITHOUT VELOCITY FLOW [facility] CMR Report Name: RADHA SHAFER Eli : [...] PA bifurcation: AAo 34 x 33 mm; Tamym 26 x 24 mm. OTHER FINDINGS: No [...] None Karishma (more content not included)... Normal [facility] Comment on above: Order Comment: Injur y/Trauma or Illness?:Illness/Other How long have you had these symptoms (acute/chronic)?:Chronic Reason for exam?:A-fib [facility] TO READ Type of Exam?:Initial Additional signs and symptoms?:n POC CREATININE - RALSon Creatinine [Mass/Vol] 1.5 mg/dL High 0.6-1.[address] [facility] Comment on above: Performed By: #### 4 [id number] #### [facility] [address] [address] Maurice Coello M.D. [id number] Pulmonary Visit Reporton Pulmonary Visit Report Normal [facility] Orthopedic Visit Reporton Orthopedic Visit Report Normal [facility] Neurology Visit Reporton Neurology Visit Report Normal [facility] L/S Spine Min 4 Viewson 02-05 L/S Spine Min 4 Views Normal [facility] Orthopedic Visit Reporton Orthopedic Visit Report Normal [facility] Upper Ext Joint Only(Routine )on 02-25-2025 Upper Ext Joint Only(Routine) Normal [facility] BASIC METABOLIC PANELon 02-04 Anion gap [Moles/Vol] 16 mmol/L Normal 10-[address] [facility] Comment on above: Order Comment: [facility] has implemented the eGFR calculation approach that does not have a coefficient for race that conforms to the NKF-ASN Task Force Recommendations. Performed By: #### 4 6124 #### [address] [place], [place] [address] Maurice Coello M.D. [id number] Calcium [Mass/Vol] 9.1 mg/dL Normal 8.4-10.2 [facility] Comment on above: Order Comment: [facility] has implemented the eGFR calculation approach that does not have a coefficient for race that conforms to the NKF-ASN Task Force Recommendations. Performed By: #### 4 6124 #### [facility] [address] [place], [place] [address] Maurice Coello M.D. [id number] Chloride [Moles/Vol] 99 mmol/L Normal 98-108 [facility] Comment on above: Order Comment: [facility] has implemented the eGFR calculation approach that does not have a coefficient for race that conforms to the NKF-ASN Task Force Recommendations. Performed By: #### 4 6124 #### [facility] [address] [place], [place] [address] Maurice Coello M.D. [id number] Creatinine [Mass/Vol] 1.70 mg/dL High 0.60-1.[address] [facility] Comment on above: Order Comment: [facility] has implemented the eGFR calculation approach that does not have a coefficient for race that conforms to the NKF-ASN Task Force Recommendations. Performed By: #### 4 6124 #### [facility] [address] [address] Maurice Coello M.D. [id number] EGFR 33 mL/min/1.73 m2 Low >=60 [facility] Comment on above: Order Comment: [facility] has implemented the eGFR calculation approach that does not have a coefficient for race that conforms to the NKF-ASN Task Force Recommendations. Result Comment: Ericka mated GFR was calculated using the 2020 CKD-EPI creatinine equation. Performed By: #### 4 6124 #### LAB [address] [id number] Maurice Coello M.D. [id number] Glucose [Mass/Vol] 119 mg/dL High 65-99 [facility] Comment on above: Order Comment: [facility] has implemented the eGFR calculation approach that does not have a coefficient for race that conforms to the NKF-ASN Task Force Recommendations. Performed By: #### 4 6124 #### [facility] [address] [id number] Maurice Coello M.D. [id number] HCO3 (Bld) [Moles/Vol] 26 mmol/L Normal 21-32 [facility] Comment on above: Order Comment: [facility] has implemented the eGFR calculation approach that does not have a coefficient for race that conforms to the NKF-ASN Task Force Recommendations. Performed By: #### 4 6124 #### [facility] [address] [id number] Maurice Coello M.D. [id number] Potassium [Moles/Vol] 3.8 mmol/L Normal 3.5-5.[address] [facility] Comment on above: Order Comment: [facility] has implemented the eGFR calculation approach that does not have a coefficient for race that conforms to the NKF-ASN Task Force Recommendations. Performed By: #### 4 6124 #### LAB [address] [place], [place] [address] Maurice Coello M.D. [id number] Sodium [Moles/Vol] 137 mmol/L Normal 135-145 [facility] Comment on above: Order Comment: [facility] has implemented the eGFR calculation approach that does not have a coefficient for race that conforms to the NKF-ASN Task Force Recommendations. Performed By: #### 4 6124 #### LAB [address] [place] [address] Maurice Coello M.D. [id number] Urea nitrogen [Mass/Vol] 22 mg/dL Normal 8-25 [facility] Comment on above: Order Comment: [facility] has implemented the eGFR calculation approach that does not have a coefficient for race that conforms to the NKF-ASN Task Force Recommendations. Performed By: #### 4 6124 #### LAB [address] [address] Maurice Coello M.D. [id number] Urea nitrogen/Creatinine [Mass ratio] 12.9 mg/mg Normal 10.0-20.0 [facility] Comment on above: Order Comment: [facility] has implemented the eGFR calculation approach that does not have a coefficient for race that conforms to the NKF-ASN Task Force Recommendations. Performed By: #### 4 6124 #### LAB [address] [place], [place] [address] Maurice Coello M.D. [id number] Basic metabolic 2000 panelon 02-18-2025 Anion gap [Moles/Vol] 16 mmol/L 10 - 2 0 mmol/L [facility] Calcium [Mass/Vol] 9.1 mg/dL 8.4 - 10. 2 mg/dL [facility] Chloride [Moles/Vol] 99 mmol/L 98 - 10 8 mmol/L [facility] Creatinine [Mass/Vol] 1.7 mg/dL High 0.60 - 1.20 mg/dL [facility] GFR/1.73 sq M.predicted CKD-EPI (S/P/Bld) [Vol rate/Area] 33 Low - PINF [facility] Comment on above: Estimated GFR was ca lculated using the 2020 CKD-EPI creatinine equation. Glucose [Mass/Vol] 119 mg/dL High 65 - 99 mg/dL [facility] HCO3 [Moles/Vol] 26 mmol/L 21 - 32 mmol/L [facility] Interpretation and review of laboratory results Abnormal [facility] Potassium [Moles/Vol] 3.8 mmol/L 3.5 - 5.1 mmol/L [facility] Sodium [Moles/Vol] 137 mmol/L 135 - 145 mmol/L [facility] Urea nitrogen [Mass/Vol] 22 mg/dL 8 - 25 mg/dL [facility] Urea nitrogen/Creatinine [Mass ratio] 12.9 mg/mg 10.0 - 20.0 [facility] has implemented the eGFR calculation approach that does not have a coefficient for race that conforms to the NKF-ASN Task Force Recommendations. [facility] CBC Auto Differentialon 02-04 Basophils (Bld) [#/Vol] 0.03 10*3/uL [facility] Basophils/100 WBC (Bld) 0.3 % [facility] Eosinophils (Bld) [#/Vol] 0.09 10*3/uL [facility] Eosinophils/100 WBC (Bld) 1 % [facility] Erythrocyte distribution width (RBC) [Entitic vol] 14.2 % 11.6 - 14.8 % [facility] Hematocrit (Bld) [Volume fraction] 33.1 % Low 36.0 - 46.0 % [facility] Hemoglobin (Bld) [Mass/Vol] 9.9 g/dL Low 12.0 - 16.0 g/dL [facility] Immature granulocytes (Bld) [#/Vol] 0.16 10*3/uL [facility] Immature granulocytes/100 WBC (Bld) 1.7 % [facility] Comment on above: The IG parameter is the percentage of metamyelocytes, myelocytes and promyelocytes. An immature granulocyte count (IG) of 1% or more suggests the possibility of infection, an IG count of 3% is very likely related to an infection. Interpretation and review of laboratory results Abnormal [facility] Lymphocytes (Bld) [#/Vol] 1.29 10*3/uL [facility] Lymphocytes/100 WBC (Bld) 13.8 % [facility] MCH (RBC) [Entitic mass] 25.8 pg Low 26.0 - 34.0 pg [facility] MCHC (RBC) [Mass/Vol] 29.9 g/dL Low 31.0 - 37.0 g/dL [facility] MCV (RBC) [Entitic vol] 86.4 fL 80.0 - 100.0 fL [facility] Monocytes (Bld) [#/Vol] 0.6 10*3/uL [facility] Monocytes/100 WBC (Bld) 6.4 % [facility] Neutrophils (Bld) [#/Vol] 7.15 10*3/uL High [facility] Neutrophils/100 WBC (Bld) 76.8 % [facility] Nucleated RBC (Bld) [#/Vol] 0 10*3/uL [facility] Nucleated RBC/100 WBC (Bld) [Ratio] 0 % [facility] Platelet mean volume (Bld) [Entitic vol] 9.9 fL 9.4 - 12.4 fL [facility] Platelets (Bld) [#/Vol] 277 10*3/uL [facility] RBC (Bld) [#/Vol] 3.83 10*6/uL Low [facility] WBC (Bld) [#/Vol] 9.32 10*3/uL [facility] CBC WITH AUTO DIFFERENTIALon 02-18-2025 AUTO NRBC 0.0 % Normal [facility] Comment on above: Performed By: #### L [id number] ####[facility] LAB [address] [place], [place] [address] Maurice Coello M.D. [id number] AUTO NRBC ABS COUNT 0.00 K/mcL Normal 0.00-0.00 [facility] Comment on above: Performed By: #### L [id number] ####[facility] LAB [address] [address] Maurice Coello M.D. [id number] BASOPHILS ABSOLUTE COUNT 0.03 K/mcL Normal 0.00-0.30 [facility] Comment on above: Performed By: #### L [id number] #### LAB [address] [address] Muarice Coello M.D. [id number] Basophils/100 WBC (Bld) 0.3 % Normal [facility] [place] [facility] Comment on above: Performed By: #### L [id number] #### LAB [address] [address] Maurice Coello M.D. [id number] Eosinophils (Bld) [#/Vol] 0.09 10*3/uL Normal 0.00-0.50 [facility] Comment on above: Performed By: #### L [id number] #### LAB [address] [place] [address] Maurice Coello M.D. [id number] Eosinophils/100 WBC (Bld) 1.0 % Normal [facility] Comment on above: Performed By: #### L [id number] #### LAB [address] [place] [address] Maurice Coello M.D. [id number] Erythrocyte distribution width (RBC) [Ratio] 14.2 % Normal 11.6-14.8 [facility] Comment on above: Performed By: #### L [id number] #### LAB [address] [place] [address] Maurice Coello M.D. [id number] Hematocrit (Bld) [Volume fraction] 33.1 % Low 36.0-46.0 [facility] Comment on above: Performed By: #### L [id number] #### LAB [address] [place] [address] Maurice Coello M.D. [id number] Hemoglobin (Bld) [Mass/Vol] 9.9 g/dL Low 12.0-16.0 [facility] Comment on above: Performed By: #### L [id number] #### LAB [address] [address] Maurice Coello M.D. [id number] IG ABSOLUTE 0.16 K/mcL Normal 0.00-0.30 [facility] Comment on above: Performed By: #### L [id number] #### LAB [address] [place] [address] Maurice Coello M.D. [id number] IG PERCENT 1.70 % [facility] Comment on above: Result Comment: The IG parameter is the percentage of metamyelocytes, myelocytes and promyelocytes. An immature granulocyte count (IG) of 1% or more suggests the possibility of infection, an IG count of 3% is very likely related to an infection. Performed By: #### L [id number] #### LAB [address] [place] [address] Maurice Coello M.D. [id number] Lymphocytes (Bld) [#/Vol] 1.29 10*3/uL Normal 0.90-4.00 [facility] Comment on above: Performed By: #### L [id number] #### LAB [address] [place] [address] Maurice Coello M.D. [id number] Lymphocytes/100 WBC (Bld) 13.8 % [facility] Comment on above: Performed By: #### L [id number] #### LAB [address] [place] [address] Maurice Coello M.D. [id number] MCH (RBC) [Entitic mass] 25.8 pg Low 26.0-34.0 [facility] Comment on above: Performed By: #### L [id number] #### LAB [address] [place] [address] Maurice Coello M.D. [id number] MCV (RBC) [Entitic vol] 86.4 fL Normal 80.0-100.0 [facility] [place] [facility] Comment on above: Performed By: #### L [id number] #### LAB [address] [place] [address] Maurice Coello M.D. [id number] MEAN CORPUSCULAR HEMOGLOBIN CONC 29.9 g/dL Low 31.0-37.0 [facility] Comment on above: Performed By: #### L [id number] #### LAB [address] [place] [address] Maurice Coello M.D. [id number] Monocytes (Bld) [#/Vol] 0.60 10*3/uL Normal 0.30-0.90 [facility] Comment on above: Performed By: #### L [id number] ####[facility] LAB [address] [place] [address] Maurice Coello M.D. [id number] Monocytes/100 WBC (Bld) 6.4 % Normal [facility] [place] [facility] Comment on above: Performed By: #### L [id number] #### LAB [address] [place] [address] Maurice Coello M.D. [id number] NEUTROPHILS ABSOLUTE COUNT 7.15 K/mcL High 1.70-7.00 [facility] Comment on above: Performed By: #### L [id number] #### LAB [address] [place] [address] Maurice Coello M.D. [id number] Neutrophils/100 WBC (Bld) 76.8 % Normal [facility] Comment on above: Performed By: #### L [id number] #### LAB [address] [place] [address] Maurice Coello M.D. [id number] Platelet mean volume (Bld) [Entitic vol] 9.9 fL Normal 9.4-12.4 [facility] Comment on above: Performed By: #### L [id number] #### LAB [address] [place] [address] Maurice Coello M.D. [id number] Platelets (Bld) [#/Vol] 277 10*3/uL Normal 150-400 [facility] Comment on above: Performed By: #### L [id number] #### LAB [address] [place] [address] Maurice Coello M.D. [id number] RBC (Bld) [#/Vol] 3.83 10*6/uL Low 4.00-5.20 [facility] Comment on above: Performed By: #### L [id number] ####[facility] LAB [address] [place], [place] [address] Maurice Coello M.D. [id number] WBC (Bld) [#/Vol] 9.32 10*3/uL Normal 4.50-11.00 [facility] Comment on above: Performed By: #### L [id number] ####[facility] LAB [address] [place] [address] Maurice Coello M.D. [id number] CK [Catalytic activity/Vol]o n 02-18-2025 Interpretation and review of laboratory results Abnormal [facility] CPKon 02-18-2025 CPK 539 U/L High 40-170 [facility] Comment on above: Performed By: #### 4 [id number] #### [facility] LAB [address] [address] Maurice Coello M.D. [id number] CPK NO MBon 02-18-2025 CK [Catalytic activity/Vol] 539 U/L High 40 - 170 U/L [facility] EKGon 02-18-2025 [facility] Glucose (Bld) [Mass/Vol]on 0 02-18-2025 Glucose [Mass/Vol] 115 mg/dL High 65 - 99 mg/dL [facility] Interpretation and review of laboratory results Abnormal [facility] POC GLUCOSE - RALSon 025 Glucose [Mass/Vol] 115 mg/dL High 65-99 [facility] Comment on above: Performed By: #### 4 6932 #### [facility] LAB [address] [place] [address] Maurice Coello M.D. [id number] BASIC METABOLIC PANELon - Anion gap [Moles/Vol] 13 mmol/L Normal 10-[address] [facility] Comment on above: Order Comment: Injur y/Trauma or Illness?:Illness/Other How long have you had these symptoms (acute/chronic)?:Acute Reason for exam?:sob. Hx of COPD History of cancer?:unknown Surgeries, chemotherapy, or radiation?:cholecystectomy, hysterectomy, oophrectomy, left knee replacement Type of Exam?:Initial Additional signs and symptoms?:. Performed By: #### 4 6145 #### LAB [address] [place] [address] Maurice Coello M.D. [id number] Calcium [Mass/Vol] 8.5 mg/dL Normal 8.4-10.2 [facility] Comment on above: Order Comment: Injur y/Trauma or Illness?:Illness/Other How long have you had these symptoms (acute/chronic)?:Acute Reason for exam?:sob. Hx of COPD History of cancer?:unknown Surgeries, chemotherapy, or radiation?:cholecystectomy, hysterectomy, oophrectomy, left knee replacement Type of Exam?:Initial Additional signs and symptoms?:. Performed By: #### 4 6125 #### LAB [address] [place] [address] Maurice Coello M.D. [id number] Chloride [Moles/Vol] 104 mmol/L Normal 98-108 [facility] Comment on above: Order Comment: Injur y/Trauma or Illness?:Illness/Other How long have you had these symptoms (acute/chronic)?:Acute Reason for exam?:sob. Hx of COPD History of cancer?:unknown Surgeries, chemotherapy, or radiation?:cholecystectomy, hysterectomy, oophrectomy, left knee replacement Type of Exam?:Initial Additional signs and symptoms?:. Performed By: #### 4 6139 #### LAB [address] [place] [address] Maurice Coello M.D. [id number] Creatinine [Mass/Vol] 1.48 mg/dL High 0.60-1.[address] [facility] Comment on above: Order Comment: Injur y/Trauma or Illness?:Illness/Other How long have you had these symptoms (acute/chronic)?:Acute Reason for exam?:sob. Hx of COPD History of cancer?:unknown Surgeries, chemotherapy, or radiation?:cholecystectomy, hysterectomy, oophrectomy, left knee replacement Type of Exam?:Initial Additional signs and symptoms?:. Performed By: #### 4 6197 #### LAB [address] [place] [address] Maurice Coello M.D. [id number] EGFR 39 mL/min/1.73 m2 Low >=60 [facility] Comment on above: Order Comment: Injur y/Trauma or Illness?:Illness/Other How long have you had these symptoms (acute/chronic)?:Acute Reason for exam?:sob. Hx of COPD History of cancer?:unknown Surgeries, chemotherapy, or radiation?:cholecystectomy, hysterectomy, oophrectomy, left knee replacement Type of Exam?:Initial Additional signs and symptoms?:. Result Comment: Ericka mated GFR was calculated using the 2020 CKD-EPI creatinine equation. Performed By: #### 4 6144 #### LAB [address] [place] [address] Maurice Coello M.D. [id number] Glucose [Mass/Vol] 83 mg/dL Normal 65-99 [facility] Comment on above: Order Comment: Injur y/Trauma or Illness?:Illness/Other How long have you had these symptoms (acute/chronic)?:Acute Reason for exam?:sob. Hx of COPD History of cancer?:unknown Surgeries, chemotherapy, or radiation?:cholecystectomy, hysterectomy, oophrectomy, left knee replacement Type of Exam?:Initial Additional signs and symptoms?:. Performed By: #### 4 6169 #### LAB [address] [place] [address] Maurice Coello M.D. [id number] HCO3 (Bld) [Moles/Vol] 25 mmol/L Normal 21-32 [facility] Comment on above: Order Comment: Injur y/Trauma or Illness?:Illness/Other How long have you had these symptoms (acute/chronic)?:Acute Reason for exam?:sob. Hx of COPD History of cancer?:unknown Surgeries, chemotherapy, or radiation?:cholecystectomy, hysterectomy, oophrectomy, left knee replacement Type of Exam?:Initial Additional signs and symptoms?:. Performed By: #### 4 6171 #### LAB [address] [place] [address] Maurice Coello M.D. [id number] Potassium [Moles/Vol] 3.7 mmol/L Normal 3.5-5.[address] [facility] Comment on above: Order Comment: Injur y/Trauma or Illness?:Illness/Other How long have you had these symptoms (acute/chronic)?:Acute Reason for exam?:sob. Hx of COPD History of cancer?:unknown Surgeries, chemotherapy, or radiation?:cholecystectomy, hysterectomy, oophrectomy, left knee replacement Type of Exam?:Initial Additional signs and symptoms?:. Performed By: #### 4 6124 #### LAB [address] [place] [address] Maurice Coello M.D. [id number] Sodium [Moles/Vol] 138 mmol/L Normal 135-145 [facility] Comment on above: Order Comment: Injur y/Trauma or Illness?:Illness/Other How long have you had these symptoms (acute/chronic)?:Acute Reason for exam?:sob. Hx of COPD History of cancer?:unknown Surgeries, chemotherapy, or radiation?:cholecystectomy, hysterectomy, oophrectomy, left knee replacement Type of Exam?:Initial Additional signs and symptoms?:. Performed By: #### 4 6188 #### LAB [address] [place] [address] Maurice Coello M.D. [id number] Urea nitrogen [Mass/Vol] 17 mg/dL Normal 8-25 [facility] Comment on above: Order Comment: Injur y/Trauma or Illness?:Illness/Other How long have you had these symptoms (acute/chronic)?:Acute Reason for exam?:sob. Hx of COPD History of cancer?:unknown Surgeries, chemotherapy, or radiation?:cholecystectomy, hysterectomy, oophrectomy, left knee replacement Type of Exam?:Initial Additional signs and symptoms?:. Performed By: #### 4 6153 #### LAB [address] [place] [address] Maurice Coello M.D. [id number] Urea nitrogen/Creatinine [Mass ratio] 11.5 mg/mg Normal 10.0-20.0 [facility] Comment on above: Order Comment: Injur y/Trauma or Illness?:Illness/Other How long have you had these symptoms (acute/chronic)?:Acute Reason for exam?:sob. Hx of COPD History of cancer?:unknown Surgeries, chemotherapy, or radiation?:cholecystectomy, hysterectomy, oophrectomy, left knee replacement Type of Exam?:Initial Additional signs and symptoms?:. Performed By: #### 4 6124 ####[facility] LAB [address] [place], [place] [address] Maurice Coello M.D. [id number] Basic metabolic 2000 panelon 02-17-2025 Anion gap [Moles/Vol] 13 mmol/L 10 - 2 0 mmol/L [facility] Calcium [Mass/Vol] 8.5 mg/dL 8.4 - 10. 2 mg/dL [facility] Chloride [Moles/Vol] 104 mmol/L 98 - 10 8 mmol/L [facility] Creatinine [Mass/Vol] 1.48 mg/dL High 0.60 - 1.20 mg/dL [facility] GFR/1.73 sq M.predicted CKD-EPI (S/P/Bld) [Vol rate/Area] 39 Low - PINF [facility] Comment on above: Estimated GFR was ca lculated using the 2020 CKD-EPI creatinine equation. Glucose [Mass/Vol] 83 mg/dL 65 - 99 mg/dL [facility] HCO3 [Moles/Vol] 25 mmol/L 21 - 32 mmol/L [facility] Potassium [Moles/Vol] 3.7 mmol/L 3.5 - 5.1 mmol/L [facility] Sodium [Moles/Vol] 138 mmol/L 135 - 145 mmol/L [facility] Urea nitrogen [Mass/Vol] 17 mg/dL 8 - 25 mg/dL [facility] Urea nitrogen/Creatinine [Mass ratio] 11.5 mg/mg 10.0 - 20.0 [facility] has implemented the eGFR calculation approach that does not have a coefficient for race that conforms to the NKF-ASN Task Force Recommendations. [facility] CBC Auto Differentialon 02-04 Basophils (Bld) [#/Vol] 0.04 10*3/uL [facility] Basophils/100 WBC (Bld) 0.5 % [facility] Eosinophils (Bld) [#/Vol] 0.06 10*3/uL [facility] Eosinophils/100 WBC (Bld) 0.8 % [facility] Erythrocyte distribution width (RBC) [Entitic vol] 14.1 % 11.6 - 14.8 % [facility] Hematocrit (Bld) [Volume fraction] 31.4 % Low 36.0 - 46.0 % [facility] Hemoglobin (Bld) [Mass/Vol] 9.3 g/dL Low 12.0 - 16.0 g/dL [facility] Immature granulocytes (Bld) [#/Vol] 0.13 10*3/uL [facility] Immature granulocytes/100 WBC (Bld) 1.7 % [facility] Comment on above: The IG parameter is the percentage of metamyelocytes, myelocytes and promyelocytes. An immature granulocyte count (IG) of 1% or more suggests the possibility of infection, an IG count of 3% is very likely related to an infection. Interpretation and review of laboratory results Abnormal [facility] Lymphocytes (Bld) [#/Vol] 1.54 10*3/uL [facility] Lymphocytes/100 WBC (Bld) 19.6 % [facility] MCH (RBC) [Entitic mass] 25.9 pg Low 26.0 - 34.0 pg [facility] MCHC (RBC) [Mass/Vol] 29.6 g/dL Low 31.0 - 37.0 g/dL [facility] MCV (RBC) [Entitic vol] 87.5 fL 80.0 - 100.0 fL [facility] Monocytes (Bld) [#/Vol] 0.72 10*3/uL [facility] Monocytes/100 WBC (Bld) 9.2 % [facility] Neutrophils (Bld) [#/Vol] 5.35 10*3/uL [facility] Neutrophils/100 WBC (Bld) 68.2 % [facility] Nucleated RBC (Bld) [#/Vol] 0 10*3/uL [facility] Nucleated RBC/100 WBC (Bld) [Ratio] 0 % [facility] Platelet mean volume (Bld) [Entitic vol] 10.2 fL 9.4 - 12.4 fL [facility] Platelets (Bld) [#/Vol] 221 10*3/uL [facility] RBC (Bld) [#/Vol] 3.59 10*6/uL Low [facility] WBC (Bld) [#/Vol] 7.84 10*3/uL [facility] CBC WITH AUTO DIFFERENTIALon 02-17-2025 AUTO NRBC 0.0 % Normal [facility] Comment on above: Performed By: #### L [id number] #### LAB [address] [place] [address] Maurice Coello M.D. [id number] AUTO NRBC ABS COUNT 0.00 K/mcL Normal 0.00-0.00 [facility] Comment on above: Performed By: #### L [id number] #### LAB [address] [address] Maurice Coello M.D. [id number] BASOPHILS ABSOLUTE COUNT 0.04 K/mcL Normal 0.00-0.30 [facility] Comment on above: Performed By: #### L [id number] #### LAB [address] [place] [address] Maurice Coello M.D. [id number] Basophils/100 WBC (Bld) 0.5 % Normal [facility] [place] [facility] Comment on above: Performed By: #### L [id number] #### LAB [address] [place] [address] Maurice Coello M.D. [id number] Eosinophils (Bld) [#/Vol] 0.06 10*3/uL Normal 0.00-0.50 [facility] Comment on above: Performed By: #### L [id number] #### LAB [address] [place] [address] Maurice Coello M.D. [id number] Eosinophils/100 WBC (Bld) 0.8 % Normal [facility] Comment on above: Performed By: #### L [id number] #### LAB [address] [place] [address] Maurice Coello M.D. [id number] Erythrocyte distribution width (RBC) [Ratio] 14.1 % Normal 11.6-14.8 [facility] Comment on above: Performed By: #### L [id number] #### LAB [address] [place] [address] Maurice Coello M.D. [id number] Hematocrit (Bld) [Volume fraction] 31.4 % Low 36.0-46.0 [facility] Comment on above: Performed By: #### L [id number] #### LAB [address] [place] [address] Maurice Coello M.D. [id number] Hemoglobin (Bld) [Mass/Vol] 9.3 g/dL Low 12.0-16.0 [facility] Comment on above: Performed By: #### L [id number] #### LAB [address] [place] [address] Maurice Coello M.D. [id number] IG ABSOLUTE 0.13 K/mcL Normal 0.00-0.30 [facility] Comment on above: Performed By: #### L [id number] #### LAB [address] [place] [address] Maurice Coello M.D. [id number] IG PERCENT 1.70 % Normal [facility] Comment on above: Result Comment: The IG parameter is the percentage of metamyelocytes, myelocytes and promyelocytes. An immature granulocyte count (IG) of 1% or more suggests the possibility of infection, an IG count of 3% is very likely related to an infection. Performed By: #### L [id number] #### LAB [address] [place] [address] Maurice Coello M.D. [id number] Lymphocytes (Bld) [#/Vol] 1.54 10*3/uL Normal 0.90-4.00 [facility] Comment on above: Performed By: #### L [id number] #### LAB [address] [place] [address] Maurice Coello M.D. [id number] Lymphocytes/100 WBC (Bld) 19.6 % Normal [facility] Comment on above: Performed By: #### L [id number] #### LAB [address] [place] [address] Maurice Coello M.D. [id number] MCH (RBC) [Entitic mass] 25.9 pg Low 26.0-34.0 [facility] Comment on above: Performed By: #### L [id number] #### LAB [address] [address] Maurice Coello M.D. [id number] MCV (RBC) [Entitic vol] 87.5 fL Normal 80.0-100.0 [facility] [place] [facility] Comment on above: Performed By: #### L [id number] #### LAB [address] [place] [address] Maurice Coello M.D. [id number] MEAN CORPUSCULAR HEMOGLOBIN CONC 29.6 g/dL Low 31.0-37.0 [facility] Comment on above: Performed By: #### L [id number] #### LAB [address] [place] [address] Maurice Coello M.D. [id number] Monocytes (Bld) [#/Vol] 0.72 10*3/uL Normal 0.30-0.90 [facility] Comment on above: Performed By: #### L [id number] #### LAB [address] [place] [address] Maurice Coello M.D. [id number] Monocytes/100 WBC (Bld) 9.2 % Normal [facility] [place] [facility] Comment on above: Performed By: #### L [id number] #### LAB [address] [place] [address] Maurice Coello M.D. [id number] NEUTROPHILS ABSOLUTE COUNT 5.35 K/mcL Normal 1.70-7.00 [facility] Comment on above: Performed By: #### L [id number] #### LAB [address] [place] [address] Maurice Coello M.D. [id number] Neutrophils/100 WBC (Bld) 68.2 % Normal [facility] Comment on above: Performed By: #### L [id number] #### LAB [address] [place] [address] Maurice Coello M.D. [id number] Platelet mean volume (Bld) [Entitic vol] 10.2 fL Normal 9.4-12.4 [facility] Comment on above: Performed By: #### L [id number] ####[facility] LAB [address] [place] [address] Maurice Coello M.D. [id number] Platelets (Bld) [#/Vol] 221 10*3/uL Normal 150-400 [facility] Comment on above: Performed By: #### L [id number] ####[facility] LAB [address] [place] [address] Maurice Coello M.D. [id number] RBC (Bld) [#/Vol] 3.59 10*6/uL Low 4.00-5.20 [facility] Comment on above: Performed By: #### L [id number] ####[facility] LAB [address] [place] [address] Maurice Coello M.D. [id number] WBC (Bld) [#/Vol] 7.84 10*3/uL Normal 4.50-11.00 [facility] Comment on above: Performed By: #### L [id number] #### LAB [address] [place] [address] Maurice Coello M.D. [id number] CPKon 02-17-2025 CPK 1606 U/L High 40-170 [facility] Comment on above: Performed By: #### 4 [id number] #### LAB [address] [place] [address] Maurice Coello M.D. [id number] CPK NO MBon 02-17-2025 CK [Catalytic activity/Vol] 1606 U/L High 40 - 170 U/L [facility] Glucose (Bld) [Mass/Vol]on 0 02-17-2025 Glucose [Mass/Vol] 132 mg/dL High 65 - 99 [facility] Interpretation and review of laboratory results Abnormal [facility] Glucose [Mass/Vol] 167 mg/dL High 65 - 99 mg/dL [facility] Interpretation and review of laboratory results Abnormal [facility] Glucose [Mass/Vol] 101 mg/dL High 65 - 99 mg/dL [facility] Interpretation and review of laboratory results Abnormal [facility] [facility] MAGNESIUM LEVELon 02-17-2025 Magnesium [Mass/Vol] 1.5 mg/dL Low 1.6-2.4 [facility] Comment on above: Performed By: #### 4 6109 #### LAB [address] [id number] Maurice Coello M.D. [id number] Magnesium Levelon 02-17-2025 Magnesium [Mass/Vol] 1.5 mg/dL Low 1.6 - 2 .4 mg/dL [facility] No Panel Informationon 02-17 Interpretation and review of laboratory results Abnormal [facility] POC GLUCOSE - RALSon 025 Glucose [Mass/Vol] 132 mg/dL High [address] [place] [address] Comment on above: Performed By: #### 4 [id number] #### LAB [address] [address] Maurice Coello M.D. [id number] Glucose [Mass/Vol] 167 mg/dL High [address] [place] [address] Comment on above: Performed By: #### 4 [id number] #### LAB [address] [address] Maurice Coello M.D. [id number] Glucose [Mass/Vol] 101 mg/dL High [address] [place] [address] Comment on above: Performed By: #### 4 [id number] #### LAB [address] [address] Maurice Coello M.D. [id number] BASIC METABOLIC PANELon 02-04 Anion gap [Moles/Vol] 13 mmol/L Normal 10-[address] [facility] Comment on above: Order Comment: [facility] has implemented the eGFR calculation approach that does not have a coefficient for race that conforms to the NKF-ASN Task Force Recommendations. Performed By: #### 4 6124 ####MH LAB [address] [address] Maurice Coello M.D. [id number] Calcium [Mass/Vol] 8.0 mg/dL Low 8.4-10.2 [facility] Comment on above: Order Comment: [facility] has implemented the eGFR calculation approach that does not have a coefficient for race that conforms to the NKF-ASN Task Force Recommendations. Performed By: #### 4 6124 #### LAB [address] [place], [place] [address] Maurice Coello M.D. [id number] Chloride [Moles/Vol] 106 mmol/L Normal 98-108 [facility] Comment on above: Order Comment: [facility] has implemented the eGFR calculation approach that does not have a coefficient for race that conforms to the NKF-ASN Task Force Recommendations. Performed By: #### 4 6124 #### LAB [address] [address] Maurice Coello M.D. [id number] Creatinine [Mass/Vol] 1.28 mg/dL High 0.60-1.[address] [facility] Comment on above: Order Comment: [facility] has implemented the eGFR calculation approach that does not have a coefficient for race that conforms to the NKF-ASN Task Force Recommendations. Performed By: #### 4 6124 #### LAB [address] [address] Maurice Coello M.D. [id number] EGFR 46 mL/min/1.73 m2 Low >=60 [facility] Comment on above: Order Comment: [facility] has implemented the eGFR calculation approach that does not have a coefficient for race that conforms to the NKF-ASN Task Force Recommendations. Result Comment: Ericka mated GFR was calculated using the 2020 CKD-EPI creatinine equation. Performed By: #### 4 6124 #### LAB [address] [address] Maurice Coello M.D. [id number] Glucose [Mass/Vol] 128 mg/dL High 65-99 [facility] Comment on above: Order Comment: [facility] has implemented the eGFR calculation approach that does not have a coefficient for race that conforms to the NKF-ASN Task Force Recommendations. Performed By: #### 4 6124 #### LAB [address] [address] Maurice Coello M.D. [id number] HCO3 (Bld) [Moles/Vol] 22 mmol/L Normal 21-32 [facility] Comment on above: Order Comment: [facility] has implemented the eGFR calculation approach that does not have a coefficient for race that conforms to the NKF-ASN Task Force Recommendations. Performed By: #### 4 6124 #### LAB [address] [address] Maurice Coello M.D. [id number] Potassium [Moles/Vol] 3.9 mmol/L Normal 3.5-5.[address] [facility] Comment on above: Order Comment: [facility] has implemented the eGFR calculation approach that does not have a coefficient for race that conforms to the NKF-ASN Task Force Recommendations. Performed By: #### 4 6124 #### LAB [address] [address] Maurice Coello M.D. [id number] Sodium [Moles/Vol] 137 mmol/L Normal 135-145 [facility] Comment on above: Order Comment: [facility] has implemented the eGFR calculation approach that does not have a coefficient for race that conforms to the NKF-ASN Task Force Recommendations. Performed By: #### 4 6124 #### LAB [address] [address] Maurice Coello M.D. [id number] Urea nitrogen [Mass/Vol] 15 mg/dL Normal 8-25 [facility] Comment on above: Order Comment: [facility] has implemented the eGFR calculation approach that does not have a coefficient for race that conforms to the NKF-ASN Task Force Recommendations. Performed By: #### 4 6124 #### LAB [address] [address] Maurice Coello M.D. [id number] Urea nitrogen/Creatinine [Mass ratio] 11.7 mg/mg Normal 10.0-20.0 [facility] Comment on above: Order Comment: [facility] has implemented the eGFR calculation approach that does not have a coefficient for race that conforms to the NKF-ASN Task Force Recommendations. Performed By: #### 4 6124 ####MH LAB [address] [place] [address] Maurice Coello M.D. [id number] Basic metabolic 2000 panelon 02-16-2025 Anion gap [Moles/Vol] 13 mmol/L 10 - 2 0 mmol/L [facility] Calcium [Mass/Vol] 8 mg/dL Low 8.4 - 10. 2 mg/dL [facility] Chloride [Moles/Vol] 106 mmol/L 98 - 10 8 mmol/L [facility] Creatinine [Mass/Vol] 1.28 mg/dL High 0.60 - 1.20 mg/dL [facility] GFR/1.73 sq M.predicted CKD-EPI (S/P/Bld) [Vol rate/Area] 46 Low - PINF [facility] Comment on above: Estimated GFR was ca lculated using the 2020 CKD-EPI creatinine equation. Glucose [Mass/Vol] 128 mg/dL High 65 - 99 mg/dL [facility] HCO3 [Moles/Vol] 22 mmol/L 21 - 32 mmol/L [facility] Interpretation and review of laboratory results Abnormal [facility] Potassium [Moles/Vol] 3.9 mmol/L 3.5 - 5.1 mmol/L [facility] Sodium [Moles/Vol] 137 mmol/L 135 - 145 mmol/L [facility] Urea nitrogen [Mass/Vol] 15 mg/dL 8 - 25 mg/dL [facility] Urea nitrogen/Creatinine [Mass ratio] 11.7 mg/mg 10.0 - 20.0 [facility] y Services has implemented the eGFR calculation approach that does not have a coefficient for race that conforms to the NKF-ASN Task Force Recommendations. [facility] CBC Auto Differentialon 02-04 Basophils (Bld) [#/Vol] 0.04 10*3/uL [facility] Basophils/100 WBC (Bld) 0.5 % [facility] Eosinophils (Bld) [#/Vol] 0.03 10*3/uL [facility] Eosinophils/100 WBC (Bld) 0.4 % [facility] Erythrocyte distribution width (RBC) [Entitic vol] 13.9 % 11.6 - 14.8 % [facility] Hematocrit (Bld) [Volume fraction] 31.8 % Low 36.0 - 46.0 % [facility] Hemoglobin (Bld) [Mass/Vol] 9.5 g/dL Low 12.0 - 16.0 g/dL [facility] Immature granulocytes (Bld) [#/Vol] 0.06 10*3/uL [facility] Immature granulocytes/100 WBC (Bld) 0.8 % [facility] Comment on above: The IG parameter is the percentage of metamyelocytes, myelocytes and promyelocytes. An immature granulocyte count (IG) of 1% or more suggests the possibility of infection, an IG count of 3% is very likely related to an infection. Interpretation and review of laboratory results Abnormal [facility] Lymphocytes (Bld) [#/Vol] 1.24 10*3/uL [facility] Lymphocytes/100 WBC (Bld) 15.8 % [facility] MCH (RBC) [Entitic mass] 26.2 pg 26.0 - 34.0 pg [facility] MCHC (RBC) [Mass/Vol] 29.9 g/dL Low 31.0 - 37.0 g/dL [facility] MCV (RBC) [Entitic vol] 87.6 fL 80.0 - 100.0 fL [facility] Monocytes (Bld) [#/Vol] 0.61 10*3/uL [facility] Monocytes/100 WBC (Bld) 7.8 % [facility] Neutrophils (Bld) [#/Vol] 5.85 10*3/uL [facility] Neutrophils/100 WBC (Bld) 74.7 % [facility] Nucleated RBC (Bld) [#/Vol] 0 10*3/uL [facility] Nucleated RBC/100 WBC (Bld) [Ratio] 0 % [facility] Platelet mean volume (Bld) [Entitic vol] 9.8 fL 9.4 - 12.4 fL [facility] Platelets (Bld) [#/Vol] 199 10*3/uL [facility] RBC (Bld) [#/Vol] 3.63 10*6/uL Low [facility] WBC (Bld) [#/Vol] 7.83 10*3/uL [facility] CBC WITH AUTO DIFFERENTIALon 02-16-2025 AUTO NRBC 0.0 % Normal [facility] Comment on above: Performed By: #### L [id number] ####[facility] LAB [address] [address] Maurice Coello M.D. [id number] AUTO NRBC ABS COUNT 0.00 K/mcL Normal 0.00-0.00 [facility] Comment on above: Performed By: #### L [id number] #### LAB [address] [address] Maurice Coello M.D. [id number] BASOPHILS ABSOLUTE COUNT 0.04 K/mcL Normal 0.00-0.30 [facility] Comment on above: Performed By: #### L [id number] #### LAB [address] [address] Maurice Coello M.D. [id number] Basophils/100 WBC (Bld) 0.5 % Normal [facility] [place] [facility] Comment on above: Performed By: #### L [id number] #### LAB [address] [address] Maurice Coello M.D. [id number] Eosinophils (Bld) [#/Vol] 0.03 10*3/uL Normal 0.00-0.50 [facility] Comment on above: Performed By: #### L [id number] #### LAB [address] [address] Maurice Coello M.D. [id number] Eosinophils/100 WBC (Bld) 0.4 % Normal [facility] Comment on above: Performed By: #### L [id number] #### LAB [address] [address] Maurice Coello M.D. [id number] Erythrocyte distribution width (RBC) [Ratio] 13.9 % Normal 11.6-14.8 [facility] Comment on above: Performed By: #### L [id number] #### LAB [address] [address] Maurice Coello M.D. [id number] Hematocrit (Bld) [Volume fraction] 31.8 % Low 36.0-46.0 [facility] Comment on above: Performed By: #### L [id number] #### LAB [address] [address] Maurice Coello M.D. [id number] Hemoglobin (Bld) [Mass/Vol] 9.5 g/dL Low 12.0-16.0 [facility] Comment on above: Performed By: #### L [id number] #### LAB [address] [address] Maurice Coello M.D. [id number] IG ABSOLUTE 0.06 K/mcL Normal 0.00-0.30 [facility] Comment on above: Performed By: #### L [id number] #### LAB [address] [address] Maurice Coello M.D. [id number] IG PERCENT 0.80 % Normal [facility] Comment on above: Result Comment: The IG parameter is the percentage of metamyelocytes, myelocytes and promyelocytes. An immature granulocyte count (IG) of 1% or more suggests the possibility of infection, an IG count of 3% is very likely related to an infection. Performed By: #### L [id number] #### LAB [address] [address] Maurice Coello M.D. [id number] Lymphocytes (Bld) [#/Vol] 1.24 10*3/uL Normal 0.90-4.00 [facility] Comment on above: Performed By: #### L [id number] #### LAB [address] [address] Maurice Coello M.D. [id number] Lymphocytes/100 WBC (Bld) 15.8 % Normal [facility] Comment on above: Performed By: #### L [id number] #### LAB [address] [address] Maurice Coello M.D. [id number] MCH (RBC) [Entitic mass] 26.2 pg Normal 26.0-34.0 [facility] Comment on above: Performed By: #### L [id number] #### LAB [address] [place] [address] Maurice Coello M.D. [id number] MCV (RBC) [Entitic vol] 87.6 fL Normal 80.0-100.0 [facility] [place] [facility] Comment on above: Performed By: #### L [id number] #### LAB [address] [address] Maurice Coello M.D. [id number] MEAN CORPUSCULAR HEMOGLOBIN CONC 29.9 g/dL Low 31.0-37.0 [facility] Comment on above: Performed By: #### L [id number] #### LAB [address] [address] Maurice Coello M.D. [id number] Monocytes (Bld) [#/Vol] 0.61 10*3/uL Normal 0.30-0.90 [facility] Comment on above: Performed By: #### L [id number] #### LAB [address] [address] Maurice Coello M.D. [id number] Monocytes/100 WBC (Bld) 7.8 % Normal [facility] [place] [facility] Comment on above: Performed By: #### L [id number] #### LAB [address] [address] Maurice Coello M.D. [id number] NEUTROPHILS ABSOLUTE COUNT 5.85 K/mcL Normal 1.70-7.00 [facility] Comment on above: Performed By: #### L [id number] #### LAB [address] [address] Maurice Coello M.D. [id number] Neutrophils/100 WBC (Bld) 74.7 % Normal [facility] Comment on above: Performed By: #### L [id number] #### LAB [address] [address] Maurice Coello M.D. [id number] Platelet mean volume (Bld) [Entitic vol] 9.8 fL Normal 9.4-12.4 [facility] Comment on above: Performed By: #### L [id number] #### LAB [address] [address] Maurice Coello M.D. [id number] Platelets (Bld) [#/Vol] 199 10*3/uL Normal 150-400 [facility] Comment on above: Performed By: #### L [id number] ####MH LAB [address] [place], [place] [address] Maurice Coello M.D. [id number] RBC (Bld) [#/Vol] 3.63 10*6/uL Low 4.00-5.20 [facility] Comment on above: Performed By: #### L [id number] ####MH LAB [address] [address] Maurice Coello M.D. [id number] WBC (Bld) [#/Vol] 7.83 10*3/uL Normal 4.50-11.00 [facility] Comment on above: Performed By: #### L [id number] ####MH LAB [address] [address] Maurice Coello M.D. [id number] CK [Catalytic activity/Vol]o n 02-16-2025 Interpretation and review of laboratory results Abnormal [facility] Interpretation and review of laboratory results Abnormal [facility] CPKon 02-16-2025 CPK 4535 U/L High 40-170 [facility] Comment on above: Performed By: #### 4 7395 #### MH LAB [address] [address] Maurice Coello M.D. [id number] CPK 5003 U/L High 40-170 [facility] Comment on above: Performed By: #### 4 6932 #### MH LAB [address] [address] Maurice Coello M.D. [id number] CPK NO MBon 02-16-2025 CK [Catalytic activity/Vol] 4535 U/L High 40 - 170 U/L [facility] CK [Catalytic activity/Vol] 5003 U/L High 40 - 170 U/L [facility] Glucose (Bld) [Mass/Vol]on 0 02-16-2025 Glucose [Mass/Vol] 170 mg/dL High 65 - 99 mg/dL [facility] Interpretation and review of laboratory results Abnormal [facility] Glucose [Mass/Vol] 119 mg/dL High 65 - 99 [facility]/dL [facility] Interpretation and review of laboratory results Abnormal [facility] Glucose [Mass/Vol] 109 mg/dL High 65 - 99 mg/dL [facility] Interpretation and review of laboratory results Abnormal [facility] Glucose [Mass/Vol] 126 mg/dL High 65 - 99 mg/dL [facility] Interpretation and review of laboratory results Abnormal [facility] MAGNESIUM LEVELon 02-16-2025 Magnesium [Mass/Vol] 1.6 mg/dL Normal 1.6-2.4 [facility] Comment on above: Performed By: #### 4 6109 #### LAB [address] [place], [place] [address] Maurice Coello M.D. [id number] Magnesium Levelon 02-16-2025 Magnesium [Mass/Vol] 1.6 mg/dL 1.6 - 2 .4 mg/dL [facility] Magnesium [Mass/Vol]on 02-16 Interpretation and review of laboratory results Normal [facility] NT PRO BNPon 02-16-2025 Natriuretic peptide B (Bld) [Mass/Vol] 3770 pg/mL High 0-300 [facility] Comment on above: Order Comment: Pride Study Cut-offsRule In:< /= 50 Years >450 pg/mL51 Years - 75 Years >900 pg/mL76 Years - 99 Years >1800 pg/mLRule Out:All patients <300 pg/mL Performed By: #### 4 7395 #### LAB [address] [place], [place] [address] Maurice Coello M.D. [id number] NT Pro BNPon 02-16-2025 Natriuretic peptide.B prohormone N-Terminal [Mass/Vol] 3770 pg/mL High 0 - 300 pg/mL [facility] Natriuretic peptide.B prohor curly N-Terminal [Mass/Vol]on 02-16-2025 Interpretation and review of laboratory results Abnormal [facility] Pride Study Cut-offs Rule In: < /= 50 Years >450 pg/mL 51 Years - 75 Years >900 pg/mL 76 Years - 99 Years >1800 pg/mL Rule Out: All patients <300 pg/mL [facility] POC GLUCOSE - Lexa 025 Glucose [Mass/Vol] 170 mg/dL [address] Comment on above: Performed By: #### 4 6932 #### [facility] LAB [address] [address] Maurice Coello M.D. [id number] Glucose [Mass/Vol] 119 mg/dL [address] Comment on above: Performed By: #### 4 6932 #### [facility] LAB [address] [address] Maurice Coello M.D. [id number] Glucose [Mass/Vol] 109 mg/dL [address] Comment on above: Performed By: #### 4 6932 #### [facility] LAB [address] [address] Maurice Coello M.D. [id number] Glucose [Mass/Vol] 126 mg/dL [address] Comment on above: Performed By: #### 4 6932 #### LAB [address] [place] [address] Maurice Coello M.D. [id number] Repeat EKGon 02-16-2025 Atrial Rate 75 BPM [facility] P [place] 74 degrees [facility] P-R Interval 136 ms [facility] Q-T Interval 424 ms [facility] QRS Duration 104 ms [facility] QTC Calculation (Bezet) 473 ms O [facility] R [place] 20 degrees [facility] T [place] -116 degrees [facility] Ventricular Rate 75 BPM [facility] th Normal sinus rhythm ST & T wave abnormality, consider inferior ischemia ST & T wave abnormality, consider anterolateral ischemia Prolonged QT Abnormal ECG ECG Cart Interpretation see physician note for interpretation. Confirmed by Yajaira Hernandez ([id number]) on 02/16/2025 5:24:09 PM [facility] TROPONIN (ONCE)on 02-16-2025 BASELINE TROPONIN T NG/L 40 ng/L Off scale high <=14 [facility] Comment on above: Performed By: #### 4 6984 #### MH LAB [address] [place], [place] [address] Maurice Coello M.D. [id number] TROPONIN T INTERPRETATION Possible acute cardiac injury. Normal [facility] Comment on above: Performed By: #### 4 6932 #### MH LAB [address] [place], [place] [address] Maurice Coello M.D. [id number] Troponin (Once)on 02-16-2025 Interpretation and review of laboratory results Abnormal [facility] Troponin T 40 ng/L Critically high NINF - 14 ng/L [facility] Troponin T Interpretation Possible acute cardiac injury. 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 Allowing for AP portable technique, the heart size is borderline. There are calcified right upper lobe pulmonary nodules. There is no focal lung consolidation. There is no pneumothorax or pleural effusion. IMPRESSION: Old granulomatous disease. Borderline heart size. No acute consolidation. Workstation ID: [id number] Dictated by: RIVAS KHAN on [place] Feb 16, 2025 4:39:53 PM EDT Transcribed by: RIVAS KHAN on [place] Feb 16, 2025 4:39:53 PM EDT Finalized by: RIVAS KHAN on [place] Feb 16, 2025 4:39:53 PM EDT [facility] Comment on above: Order Comment: Injur y/Trauma or Illness?:Illness/OtherHow long have you had these symptoms (acute/chronic)?:AcuteReason for exam?:sobHistory of cancer?:unknownSurgeries, chemotherapy, or radiation?:cholecystectomy, hysterectomy, oophrectomy, left knee replacementType of Exam?:OngoingAdditional signs and symptoms?:contact iso;ation XR Chest PA and Abdomen APon 02-16-2025 Old granulomatous disease. Borderline heart size. No acute consolidation. 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 Allowing for AP portable technique, the heart size is borderline. There are calcified right upper lobe pulmonary nodules. There is no focal lung consolidation. There is no pneumothorax or pleural effusion. 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 Allowing for AP portable technique, the heart size is borderline. There are calcified right upper lobe pulmonary nodules. There is no focal lung consolidation. There is no pneumothorax or pleural effusion. IMPRESSION: Old granulomatous disease. Borderline heart size. No acute consolidation. Workstation ID: [id number] [facility] Radiology [facility] (narrative) [facility] Chest PA and Abdomen APOr dered By: Rivas Khan on 02-16-2025 [facility] Work Phone: BASIC METABOLIC PANELon 02-04 Anion gap [Moles/Vol] 15 mmol/L Normal 10-[address] [facility] Comment on above: Order Comment: Pride Study Cut-offs Rule In: < /= 50 Years >450 pg/mL 51 Years - 75 Years >900 pg/mL 76 Years - 99 Years >1800 pg/mL Rule Out: All patients <300 pg/mL Performed By: #### 4 7395 #### MH LAB [address] [place], [place] [address] Maurice Coello M.D. [id number] Calcium [Mass/Vol] 7.9 mg/dL Low 8.4-10.2 [facility] Comment on above: Order Comment: Pride Study Cut-offs Rule In: < /= 50 Years >450 pg/mL 51 Years - 75 Years >900 pg/mL 76 Years - 99 Years >1800 pg/mL Rule Out: All patients <300 pg/mL Performed By: #### 4 7395 #### LAB [address] [place], [place] [address] Maurice Coello M.D. [id number] Chloride [Moles/Vol] 98 mmol/L Normal 98-108 [facility] Comment on above: Order Comment: Pride Study Cut-offs Rule In: < /= 50 Years >450 pg/mL 51 Years - 75 Years >900 pg/mL 76 Years - 99 Years >1800 pg/mL Rule Out: All patients <300 pg/mL Performed By: #### 4 7395 #### LAB [address] [place], [place] [address] Maurice Coello M.D. [id number] Creatinine [Mass/Vol] 1.54 mg/dL High 0.60-1.[address] [facility] Comment on above: Order Comment: Pride Study Cut-offs Rule In: < /= 50 Years >450 pg/mL 51 Years - 75 Years >900 pg/mL 76 Years - 99 Years >1800 pg/mL Rule Out: All patients <300 pg/mL Performed By: #### 4 7395 #### LAB [address] [place], [place] [address] Maurice Coello M.D. [id number] EGFR 37 mL/min/1.73 m2 Low >=60 [facility] Comment on above: Order Comment: Pride Study Cut-offs Rule In: < /= 50 Years >450 pg/mL 51 Years - 75 Years >900 pg/mL 76 Years - 99 Years >1800 pg/mL Rule Out: All patients <300 pg/mL Result Comment: Ericka mated GFR was calculated using the 2020 CKD-EPI creatinine equation. Performed By: #### 4 7395 #### LAB [address] [place], [place] [address] Maurice Coello M.D. [id number] Glucose [Mass/Vol] 137 mg/dL High 65-99 [facility] Comment on above: Order Comment: Pride Study Cut-offs Rule In: < /= 50 Years >450 pg/mL 51 Years - 75 Years >900 pg/mL 76 Years - 99 Years >1800 pg/mL Rule Out: All patients <300 pg/mL Performed By: #### 4 7395 #### LAB [address] [place], [place] [address] Maurice Coello M.D. [id number] HCO3 (Bld) [Moles/Vol] 24 mmol/L Normal 21-32 [facility] Comment on above: Order Comment: Pride Study Cut-offs Rule In: < /= 50 Years >450 pg/mL 51 Years - 75 Years >900 pg/mL 76 Years - 99 Years >1800 pg/mL Rule Out: All patients <300 pg/mL Performed By: #### 4 7395 #### LAB [address] [place], [place] [address] Maurice Coello M.D. [id number] Potassium [Moles/Vol] 3.7 mmol/L Normal 3.5-5.[address] [facility] Comment on above: Order Comment: Pride Study Cut-offs Rule In: < /= 50 Years >450 pg/mL 51 Years - 75 Years >900 pg/mL 76 Years - 99 Years >1800 pg/mL Rule Out: All patients <300 pg/mL Performed By: #### 4 7395 #### LAB [address] [place], [place] [address] Maurice Coello M.D. [id number] Sodium [Moles/Vol] 133 mmol/L Low 135-145 [facility] Comment on above: Order Comment: Pride Study Cut-offs Rule In: < /= 50 Years >450 pg/mL 51 Years - 75 Years >900 pg/mL 76 Years - 99 Years >1800 pg/mL Rule Out: All patients <300 pg/mL Performed By: #### 4 7395 #### LAB [address] [place], [place] [address] Maurice Coello M.D. [id number] Urea nitrogen [Mass/Vol] 23 mg/dL Normal 8-25 [facility] Comment on above: Order Comment: Pride Study Cut-offs Rule In: < /= 50 Years >450 pg/mL 51 Years - 75 Years >900 pg/mL 76 Years - 99 Years >1800 pg/mL Rule Out: All patients <300 pg/mL Performed By: #### 4 7395 #### LAB [address] [place], [place] [address] Maurice Coello M.D. [id number] Urea nitrogen/Creatinine [Mass ratio] 14.9 mg/mg Normal 10.0-20.0 [facility] Comment on above: Order Comment: Pride Study Cut-offs Rule In: < /= 50 Years >450 pg/mL 51 Years - 75 Years >900 pg/mL 76 Years - 99 Years >1800 pg/mL Rule Out: All patients <300 pg/mL Performed By: #### 4 7395 #### [facility] LAB [address] [place] [address] Maurice Coello M.D. [id number] Bacteria identified Aer cx N om (Unsp spec)Ordered By: Amalia Kendall on 02-15-2025 [facility] Basic metabolic 2000 panelOr dered By: Alea Joseph on 02-15-2025 Anion gap [Moles/Vol] 15 mmol/L 10 - 2 0 mmol/L [facility] Calcium [Mass/Vol] 7.9 mg/dL Low 8.4 - 10. 2 mg/dL [facility] Chloride [Moles/Vol] 98 mmol/L 98 - 10 8 mmol/L [facility] Creatinine [Mass/Vol] 1.54 mg/dL High 0.60 - 1.20 mg/dL [facility] GFR/1.73 sq M.predicted CKD-EPI (S/P/Bld) [Vol rate/Area] 37 Low - PINF [facility] Comment on above: Estimated GFR was ca lculated using the 2020 CKD-EPI creatinine equation. Glucose [Mass/Vol] 137 mg/dL High 65 - 99 mg/dL [facility] H[facility]3 [Moles/Vol] 24 mmol/L 21 - 32 mmol/L [facility] Interpretation and review of laboratory results Abnormal [facility] Potassium [Moles/Vol] 3.7 mmol/L 3.5 - 5.1 mmol/L [facility] Sodium [Moles/Vol] 133 mmol/L Low 135 - 145 mmol/L [facility] Urea nitrogen [Mass/Vol] 23 mg/dL 8 - 25 mg/dL [facility] Urea nitrogen/Creatinine [Mass ratio] 14.9 mg/mg 10.0 - 20.0 [facility] has implemented the eGFR calculation approach that does not have a coefficient for race that conforms to the NKF-ASN Task Force Recommendations. [facility] CBC Auto Differentialon 02-04 Basophils (Bld) [#/Vol] 0.02 10*3/uL [facility] Basophils/100 WBC (Bld) 0.2 % [facility] Eosinophils (Bld) [#/Vol] 0.05 10*3/uL [facility] Eosinophils/100 WBC (Bld) 0.5 % [facility] Erythrocyte distribution width (RBC) [Entitic vol] 13.8 % 11.6 - 14.8 % [facility] Hematocrit (Bld) [Volume fraction] 31.4 % Low 36.0 - 46.0 % [facility] Hemoglobin (Bld) [Mass/Vol] 9.3 g/dL Low 12.0 - 16.0 g/dL [facility] Immature granulocytes (Bld) [#/Vol] 0.06 10*3/uL [facility] Immature granulocytes/100 WBC (Bld) 0.6 % [facility] Comment on above: The IG parameter is the percentage of metamyelocytes, myelocytes and promyelocytes. An immature granulocyte count (IG) of 1% or more suggests the possibility of infection, an IG count of 3% is very likely related to an infection. Interpretation and review of laboratory results Abnormal [facility] Lymphocytes (Bld) [#/Vol] 1.33 10*3/uL [facility] Lymphocytes/100 WBC (Bld) 12.3 % [facility] MCH (RBC) [Entitic mass] 25.8 pg Low 26.0 - 34.0 pg [facility] MCHC (RBC) [Mass/Vol] 29.6 g/dL Low 31.0 - 37.0 g/dL [facility] MCV (RBC) [Entitic vol] 87.2 fL 80.0 - 100.0 fL [facility] Monocytes (Bld) [#/Vol] 0.77 10*3/uL [facility] Monocytes/100 WBC (Bld) 7.1 % [facility] Neutrophils (Bld) [#/Vol] 8.55 10*3/uL High [facility] Neutrophils/100 WBC (Bld) 79.3 % [facility] Nucleated RBC (Bld) [#/Vol] 0 10*3/uL [facility] Nucleated RBC/100 WBC (Bld) [Ratio] 0 % [facility] Platelet mean volume (Bld) [Entitic vol] 10.1 fL 9.4 - 12.4 fL [facility] Platelets (Bld) [#/Vol] 233 10*3/uL [facility] RBC (Bld) [#/Vol] 3.6 10*6/uL Low [facility] [place] [facility] alth WBC (Bld) [#/Vol] 10.78 10*3/uL [facility] CBC WITH AUTO DIFFERENTIALon 02-15-2025 AUTO NRBC 0.0 % Normal [facility] Comment on above: Performed By: #### L [id number] #### LAB [address] [place] [address] Maurice Coello M.D. [id number] AUTO NRBC ABS COUNT 0.00 K/mcL Normal 0.00-0.00 [facility] Comment on above: Performed By: #### L [id number] #### LAB [address] [place] [address] Maurice Coello M.D. [id number] BASOPHILS ABSOLUTE COUNT 0.02 K/mcL Normal 0.00-0.30 [facility] Comment on above: Performed By: #### L [id number] #### LAB [address] [place] [address] Maurice Coello M.D. [id number] Basophils/100 WBC (Bld) 0.2 % Normal [facility] [place] [facility] Comment on above: Performed By: #### L [id number] #### LAB [address] [place] [address] Maurice Coello M.D. [id number] Eosinophils (Bld) [#/Vol] 0.05 10*3/uL Normal 0.00-0.50 [facility] Comment on above: Performed By: #### L [id number] #### LAB [address] [place] [address] Maurice Coello M.D. [id number] Eosinophils/100 WBC (Bld) 0.5 % Normal [facility] Comment on above: Performed By: #### L [id number] #### LAB [address] [place] [address] Maurice Coello M.D. [id number] Erythrocyte distribution width (RBC) [Ratio] 13.8 % Normal 11.6-14.8 [facility] Comment on above: Performed By: #### L [id number] #### LAB [address] [place] [address] Maurice Coello M.D. [id number] Hematocrit (Bld) [Volume fraction] 31.4 % Low 36.0-46.0 [facility] Comment on above: Performed By: #### L [id number] #### LAB [address] [place] [address] Maurice Coello M.D. [id number] Hemoglobin (Bld) [Mass/Vol] 9.3 g/dL Low 12.0-16.0 [facility] Comment on above: Performed By: #### L [id number] #### LAB [address] [place] [address] Maurice Coello M.D. [id number] IG ABSOLUTE 0.06 K/mcL Normal 0.00-0.30 [facility] Comment on above: Performed By: #### L [id number] #### LAB [address] [place] [address] Maurice Coello M.D. [id number] IG PERCENT 0.60 % [facility] Comment on above: Result Comment: The IG parameter is the percentage of metamyelocytes, myelocytes and promyelocytes. An immature granulocyte count (IG) of 1% or more suggests the possibility of infection, an IG count of 3% is very likely related to an infection. Performed By: #### L [id number] #### LAB [address] [place] [address] Maurice Coello M.D. [id number] Lymphocytes (Bld) [#/Vol] 1.33 10*3/uL Normal 0.90-4.00 [facility] Comment on above: Performed By: #### L [id number] #### LAB [address] [place] [address] Maurice Coello M.D. [id number] Lymphocytes/100 WBC (Bld) 12.3 % Normal [facility] Comment on above: Performed By: #### L [id number] #### LAB [address] [place] [address] Maurice Coello M.D. [id number] MCH (RBC) [Entitic mass] 25.8 pg Low 26.0-34.0 [facility] Comment on above: Performed By: #### L [id number] ####[facility] LAB [address] [place] [address] Maurice Coello M.D. [id number] MCV (RBC) [Entitic vol] 87.2 fL Normal 80.0-100.0 [facility] [place] [facility] Comment on above: Performed By: #### L [id number] #### LAB [address] [place] [address] Maurice Coello M.D. [id number] MEAN CORPUSCULAR HEMOGLOBIN CONC 29.6 g/dL Low 31.0-37.0 [facility] Comment on above: Performed By: #### L [id number] #### LAB [address] [place] [address] Maurice Coello M.D. [id number] Monocytes (Bld) [#/Vol] 0.77 10*3/uL Normal 0.30-0.90 [facility] Comment on above: Performed By: #### L [id number] #### LAB [address] [place] [address] Maurice Coello M.D. [id number] Monocytes/100 WBC (Bld) 7.1 % Normal [facility] [place] [facility] Comment on above: Performed By: #### L [id number] #### LAB [address] [place] [address] Maurice Coello M.D. [id number] NEUTROPHILS ABSOLUTE COUNT 8.55 K/mcL High 1.70-7.00 [facility] Comment on above: Performed By: #### L [id number] #### LAB [address] [place] [address] Maurice Coello M.D. [id number] Neutrophils/100 WBC (Bld) 79.3 % Normal [facility] Comment on above: Performed By: #### L [id number] #### LAB [address] [place] [address] Maurice Coello M.D. [id number] Platelet mean volume (Bld) [Entitic vol] 10.1 fL Normal 9.4-12.4 [facility] Comment on above: Performed By: #### L [id number] ####[facility] LAB [address] [place], [place] [address] Maurice Coello M.D. [id number] Platelets (Bld) [#/Vol] 233 10*3/uL Normal 150-400 [facility] Comment on above: Performed By: #### L [id number] ####[facility] LAB [address] [place] [id number] Maurice Coello M.D. [id number] RBC (Bld) [#/Vol] 3.60 10*6/uL Low 4.00-5.20 [facility] Comment on above: Performed By: #### L [id number] ####[facility] LAB [address] [place] [address] Maurice Coello M.D. [id number] WBC (Bld) [#/Vol] 10.78 10*3/uL Normal 4.50-11.00 [facility] Comment on above: Performed By: #### L [id number] ####MH LAB [address] [place] [address] Maurice Coello M.D. [id number] CK [Catalytic activity/Vol]o n 02-15-2025 Interpretation and review of laboratory results Abnormal [facility] CPKon 02-15-2025 CPK 31346 U/L High 40-170 [facility] Comment on above: Performed By: #### 4 8261 #### LAB [address] [place] [address] Maurice Coello M.D. [id number] CPK NO MBon 02-15-2025 CK [Catalytic activity/Vol] 09759 U/L High 40 - 170 U/L [facility] EKG 12-leadon 02-15-2025 Atrial Rate 94 BPM [facility] P [place] 71 degrees [facility] P-R Interval 144 ms [facility] Q-T Interval 330 ms [facility] QRS Duration 90 ms [facility] QTC Calculation (Bezet) 412 ms [facility] R [place] -12 degrees [facility] T [place] 63 degrees [facility] Ventricular Rate 94 BPM [facility] Normal sinus rhythm Normal ECG ECG Cart Interpretation see physician note for interpretation. Confirmed by Yajaira Hernandez ([id number]) on 02/15/2025 12:15:20 PM MUSE [facility] Gastrointestinal pathogens D NA and RNA panel CATRINA+non-probe (Stl)Ordered By: Donna Melendez on 02-15-2025 Adenovirus 40+41 DNA CATRINA+non-probe Ql (Stl) Not detected Not Detected [facility] Astrovirus subtypes 1-8 RNA CATRINA+non-probe Ql (Stl) Not detected Not Detected [facility] C. cayetanensis DNA CATRINA+non-probe Ql (Stl) Not detected Not Detected [facility] C. coli+jejuni+upsaliensis DNA CATRINA+non-probe Ql (Stl) Not detected Not Detected [facility] C. difficile toxin A+B tcdA+tcdB genes CATRINA+non-probe Ql (Stl) Not detected Not Detected [facility] Cryptosporidium sp DNA CATRINA+non-probe Ql (Stl) Not detected Not Detected [facility] E. coli enteroaggregative [place] plasmid aggR+aatA genes CATRINA+non-probe Ql (Stl) Detected Abnormal Not Detected [facility] Comment on above: EPEC is associated w ith acute or prolonged watery diarrhea with vomiting and fever. EPEC carriage may also be asymptomatic. Treatment with antibiotics is not recommended. E. coli enteropathogenic eae gene CATRINA+non-probe Ql (Stl) Not detected Not Detected [facility] E. coli enterotoxigenic ltA+st1a+st1b genes CATRINA+non-probe Ql (Stl) Not detected Not Detected [facility] E. coli stx1+stx2 genes CATRINA+non-probe Ql (Stl) Not detected Not Detected [facility] E. histolytica DNA CATRINA+non-probe Ql (Stl) Not detected Not Detected [facility] G. lamblia DNA CATRINA+non-probe Ql (Stl) Not detected Not Detected [facility] Interpretation and review of laboratory results Abnormal [facility] Norovirus genogroup I+II RNA CATRINA+non-probe Ql (Stl) Detected Abnormal Not Detected [facility] Comment on above: Highly contagious; N orovirus [...] CATRINA+non-probe Ql (Stl) Not detected [facility] Rotavirus A RNA CATRINA+non-probe Ql (Stl) Not detected [facility] S. enterica+bongori DNA CATRINA+non-probe Ql (Stl) Not detected Not Detected [facility] Sapovirus genogroups I+II+IV+V RNA CATRINA+non-probe Ql (Stl) Not detected Not Detected [facility] Shigella species+EIEC invasion plasmid antigen H ipaH gene CATRINA+non-probe Ql (Stl) Not detected Not Detected [facility] V. cholerae DNA CATRINA+non-probe Ql (Stl) Not detected Not Detected [facility] V. cholerae+parahaemolytic us+vulnificus DNA CATRINA+non-probe Ql (Stl) Not detected Not Detected [facility] Y. enterocolitica DNA CATRINA+non-probe Ql (Stl) Not detected Not Detected [facility] Results of PCR testi ng [...] infections as well as select bacterial infections. [facility] Glucose (Bld) [Mass/Vol]on 0 02-15-2025 Glucose [Mass/Vol] 172 mg/dL High 65 - 99 mg/dL [facility] Interpretation and review of laboratory results Abnormal [facility] Glucose [Mass/Vol] 173 mg/dL High 65 - 99 mg/dL [facility] Interpretation and review of laboratory results Abnormal [facility] Glucose [Mass/Vol] 155 mg/dL High 65 - 99 mg/dL [facility] Interpretation and review of laboratory results Abnormal [facility] Glucose [Mass/Vol] 140 mg/dL High 65 - 99 mg/dL [facility] Interpretation and review of laboratory results Abnormal [facility] Glucose [Mass/Vol] 211 mg/dL High 65 - 99 mg/dL [facility] Interpretation and review of laboratory results Abnormal [facility] MAGNESIUM LEVELon 02-15-2025 Magnesium [Mass/Vol] 1.7 mg/dL Normal 1.6-2.4 [facility] Comment on above: Performed By: #### 4 6109 ####[facility] LAB [address] [place], [place] [address] Maurice Coello M.D. [id number] Magnesium Levelon 02-15-2025 Magnesium [Mass/Vol] 1.7 mg/dL 1.6 - 2 .4 mg/dL [facility] Magnesium [Mass/Vol]on 02-15 Interpretation and review of laboratory results Normal [facility] No Panel InformationOrdered By: Alea Joseph on 02-15-2025 [facility] POC GLUCOSE - RALSon 025 Glucose [Mass/Vol] 172 mg/dL High [address] [place] [address] Comment on above: Performed By: #### 4 6932 #### MH LAB [address] [place] [address] Maurice Coello M.D. [id number] Glucose [Mass/Vol] 173 mg/dL High [address] [place] [address] Comment on above: Performed By: #### 4 6932 #### MH LAB [address] [place] [address] Maurice Coello M.D. [id number] Glucose [Mass/Vol] 155 mg/dL [address] Comment on above: Performed By: #### 4 6932 #### MH LAB [address] [place] [id number] Maurice Coello M.D. [id number] Glucose [Mass/Vol] 140 mg/dL [address] Comment on above: Performed By: #### 4 6962 #### MH LAB [address] [place] [id number] Maurice oCello M.D. [id number] Glucose [Mass/Vol] 211 mg/dL [address] Comment on above: Performed By: #### 4 6913 #### [facility] LAB [address] [place], [place] [address] Maurice Coello M.D. [id number] STOOL/GI PCR PANELon 025 STOOL/GI PCR PANEL [...] Detected SAPOVIRUS Not Detected Abnormal Not Detected [facility] Comment on above: Order Comment: Resul ts [...] select bacterial infections. Performed By: #### L [id number] ####[facility] LAB [address] [place], [place] [address] Maurice Coello M.D. [id number] Urine Aerobic CultureOrdered By: Amalia Kendall on 02-15-2025 Bacteria identified Aer cx Nom (Unsp spec) < 10,000 CFU/mL of normal urogenital microbiota [facility] BASIC METABOLIC PANELon 02-04 Anion gap [Moles/Vol] 20 mmol/L Normal 10-[address] [facility] Comment on above: Order Comment: Injur y/Trauma or Illness?:Illness/Other How long have you had these symptoms (acute/chronic)?:Chronic Reason for exam?:A-fib [facility] TO READ Type of Exam?:Initial Additional signs and symptoms?:n Performed By: #### 4 6124 #### LAB [address] [place] [address] Maurice Coello M.D. [id number] Calcium [Mass/Vol] 9.1 mg/dL Normal 8.4-10.2 [facility] Comment on above: Order Comment: Injur y/Trauma or Illness?:Illness/Other How long have you had these symptoms (acute/chronic)?:Chronic Reason for exam?:A-fib [facility] TO READ Type of Exam?:Initial Additional signs and symptoms?:n Performed By: #### 4 6124 #### LAB [address] [place] [address] Maurice Coello M.D. [id number] Chloride [Moles/Vol] 95 mmol/L Low 98-108 [facility] Comment on above: Order Comment: Injur y/Trauma or Illness?:Illness/Other How long have you had these symptoms (acute/chronic)?:Chronic Reason for exam?:A-fib [facility] TO READ Type of Exam?:Initial Additional signs and symptoms?:n Performed By: #### 4 6124 #### LAB [address] [place] [address] Maurice Coello M.D. [id number] Creatinine [Mass/Vol] 1.78 mg/dL High 0.60-1.[address] [facility] Comment on above: Order Comment: Injur y/Trauma or Illness?:Illness/Other How long have you had these symptoms (acute/chronic)?:Chronic Reason for exam?:A-fib [facility] TO READ Type of Exam?:Initial Additional signs and symptoms?:n Performed By: #### 4 6178 #### LAB [address] [place] [address] Maurice Coello M.D. [id number] EGFR 31 mL/min/1.73 m2 Low >=60 [facility] Comment on above: Order Comment: Injur y/Trauma or Illness?:Illness/Other How long have you had these symptoms (acute/chronic)?:Chronic Reason for exam?:A-fib [facility] TO READ Type of Exam?:Initial Additional signs and symptoms?:n Result Comment: Ericka mated GFR was calculated using the 2020 CKD-EPI creatinine equation. Performed By: #### 4 6145 #### LAB [address] [place] [address] Maurice Coello M.D. [id number] Glucose [Mass/Vol] 194 mg/dL High 65-99 [facility] Comment on above: Order Comment: Injur y/Trauma or Illness?:Illness/Other How long have you had these symptoms (acute/chronic)?:Chronic Reason for exam?:A-fib [facility] TO READ Type of Exam?:Initial Additional signs and symptoms?:n Performed By: #### 4 6103 #### LAB [address] [place] [address] Maurice Coello M.D. [id number] HCO3 (Bld) [Moles/Vol] 23 mmol/L Normal 21-32 [facility] Comment on above: Order Comment: Injur y/Trauma or Illness?:Illness/Other How long have you had these symptoms (acute/chronic)?:Chronic Reason for exam?:A-fib [facility] TO READ Type of Exam?:Initial Additional signs and symptoms?:n Performed By: #### 4 6159 #### LAB [address] [place] [address] Maurice Coello M.D. [id number] Potassium [Moles/Vol] 4.9 mmol/L Normal 3.5-5.[address] [facility] Comment on above: Order Comment: Injur y/Trauma or Illness?:Illness/Other How long have you had these symptoms (acute/chronic)?:Chronic Reason for exam?:A-fib [facility] TO READ Type of Exam?:Initial Additional signs and symptoms?:n Performed By: #### 4 6124 #### LAB [address] [place] [address] Maurice Coello M.D. [id number] Sodium [Moles/Vol] 133 mmol/L Low 135-145 [facility] Comment on above: Order Comment: Injur y/Trauma or Illness?:Illness/Other How long have you had these symptoms (acute/chronic)?:Chronic Reason for exam?:A-fib [facility] TO READ Type of Exam?:Initial Additional signs and symptoms?:n Performed By: #### 4 6124 #### LAB [address] [place] [address] Maurice Coello M.D. [id number] Urea nitrogen [Mass/Vol] 20 mg/dL Normal 8-25 [facility] Comment on above: Order Comment: Injur y/Trauma or Illness?:Illness/Other How long have you had these symptoms (acute/chronic)?:Chronic Reason for exam?:A-fib [facility] TO READ Type of Exam?:Initial Additional signs and symptoms?:n Performed By: #### 4 6124 #### LAB [address] [place] [address] Maurice Coello M.D. [id number] Urea nitrogen/Creatinine [Mass ratio] 11.2 mg/mg Normal 10.0-20.0 [facility] Comment on above: Order Comment: Injur y/Trauma or Illness?:Illness/Other How long have you had these symptoms (acute/chronic)?:Chronic Reason for exam?:A-fib [facility] TO READ Type of Exam?:Initial Additional signs and symptoms?:n Performed By: #### 4 6124 ####[facility] LAB [address], [place] [address] Maurice Coello M.D. [id number] Basic metabolic 2000 panelon 02-14-2025 Anion gap [Moles/Vol] 20 mmol/L 10 - 2 0 mmol/L [facility] Calcium [Mass/Vol] 9.1 mg/dL 8.4 - 10. 2 mg/dL [facility] Chloride [Moles/Vol] 95 mmol/L Low 98 - 10 8 mmol/L [facility] Creatinine [Mass/Vol] 1.78 mg/dL High 0.60 - 1.20 mg/dL [facility] GFR/1.73 sq M.predicted CKD-EPI (S/P/Bld) [Vol rate/Area] 31 Low - PINF [facility] Comment on above: Estimated GFR was ca lculated using the 2020 CKD-EPI creatinine equation. Glucose [Mass/Vol] 194 mg/dL High 65 - 99 mg/dL [facility] [Moles/Vol] 23 mmol/L 21 - 32 mmol/L [facility] Potassium [Moles/Vol] 4.9 mmol/L 3.5 - 5.1 mmol/L [facility] Sodium [Moles/Vol] 133 mmol/L Low 135 - 145 mmol/L [facility] Urea nitrogen [Mass/Vol] 20 mg/dL 8 - 25 mg/dL [facility] Urea nitrogen/Creatinine [Mass ratio] 11.2 mg/mg 10.0 - 20.0 [facility] has implemented the eGFR calculation approach that does not have a coefficient for race that conforms to the NKF-ASN Task Force Recommendations. [facility] CBC Auto Differentialon 02-04 Basophils (Bld) [#/Vol] 0.01 10*3/uL [facility] Basophils/100 WBC (Bld) 0.1 % [facility] Eosinophils (Bld) [#/Vol] 0 10*3/uL [facility] Eosinophils/100 WBC (Bld) 0 % [facility] Erythrocyte distribution width (RBC) [Entitic vol] 13.7 % 11.6 - 14.8 % [facility] Hematocrit (Bld) [Volume fraction] 36.6 % 36.0 - 46.0 % [facility] Hemoglobin (Bld) [Mass/Vol] 11.3 g/dL Low 12.0 - 16.0 g/dL [facility] Immature granulocytes (Bld) [#/Vol] 0.03 10*3/uL [facility] Immature granulocytes/100 WBC (Bld) 0.4 % [facility] Comment on above: The IG parameter is the percentage of metamyelocytes, myelocytes and promyelocytes. An immature granulocyte count (IG) of 1% or more suggests the possibility of infection, an IG count of 3% is very likely related to an infection. Interpretation and review of laboratory results Abnormal [facility] Lymphocytes (Bld) [#/Vol] 0.76 10*3/uL Low [facility] Lymphocytes/100 WBC (Bld) 9.6 % [facility] MCH (RBC) [Entitic mass] 25.7 pg Low 26.0 - 34.0 pg [facility] MCHC (RBC) [Mass/Vol] 30.9 g/dL Low 31.0 - 37.0 g/dL [facility] MCV (RBC) [Entitic vol] 83.4 fL 80.0 - 100.0 fL [facility] Monocytes (Bld) [#/Vol] 0.08 10*3/uL Low [facility] Monocytes/100 WBC (Bld) 1 % [facility] Neutrophils (Bld) [#/Vol] 7.04 10*3/uL High [facility] Neutrophils/100 WBC (Bld) 88.9 % [facility] Nucleated RBC (Bld) [#/Vol] 0 10*3/uL [facility] Nucleated RBC/100 WBC (Bld) [Ratio] 0 % [facility] Platelet mean volume (Bld) [Entitic vol] 10.2 fL 9.4 - 12.4 fL [facility] Platelets (Bld) [#/Vol] 278 10*3/uL [facility] RBC (Bld) [#/Vol] 4.39 10*6/uL [facility] WBC (Bld) [#/Vol] 7.92 10*3/uL [facility] CBC WITH AUTO DIFFERENTIALon 02-14-2025 AUTO NRBC 0.0 % Normal [facility] Comment on above: Performed By: #### 4 6932 #### [facility] LAB [address] [place], [place] [address] Maurice Coello M.D. [id number] AUTO NRBC ABS COUNT 0.00 K/mcL Normal 0.00-0.00 [facility] Comment on above: Performed By: #### 4 0378 #### LAB [address] [place] [address] Maurice Coello M.D. [id number] BASOPHILS ABSOLUTE COUNT 0.01 K/mcL Normal 0.00-0.30 [facility] Comment on above: Performed By: #### 4 5719 #### LAB [address] [place] [address] Maurice Coello M.D. [id number] Basophils/100 WBC (Bld) 0.1 % Normal [facility] [place] [facility] Comment on above: Performed By: #### 4 0304 #### LAB [address] [place] [address] Maurice Coello M.D. [id number] Eosinophils (Bld) [#/Vol] 0.00 10*3/uL Normal 0.00-0.50 [facility] Comment on above: Performed By: #### 4 4239 #### LAB [address] [place] [address] Maurice Coello M.D. [id number] Eosinophils/100 WBC (Bld) 0.0 % Normal [facility] Comment on above: Performed By: #### 4 6690 #### LAB [address] [place] [address] Maurice Coello M.D. [id number] Erythrocyte distribution width (RBC) [Ratio] 13.7 % Normal 11.6-14.8 [facility] Comment on above: Performed By: #### 4 0562 #### LAB [address] [place] [address] Maurice Coello M.D. [id number] Hematocrit (Bld) [Volume fraction] 36.6 % Normal 36.0-46.0 [facility] Comment on above: Performed By: #### 4 2249 #### LAB [address] [place] [address] Maurice Coello M.D. [id number] Hemoglobin (Bld) [Mass/Vol] 11.3 g/dL Low 12.0-16.0 [facility] Comment on above: Performed By: #### 4 7343 #### LAB [address] [address] Maurice Coello M.D. [id number] IG ABSOLUTE 0.03 K/mcL Normal 0.00-0.30 [facility] Comment on above: Performed By: #### 4 9706 #### LAB [address] [address] Maurice Coello M.D. [id number] IG PERCENT 0.40 % [facility] Comment on above: Result Comment: The IG parameter is the percentage of metamyelocytes, myelocytes and promyelocytes. An immature granulocyte count (IG) of 1% or more suggests the possibility of infection, an IG count of 3% is very likely related to an infection. Performed By: #### 4 2546 #### LAB [address] [address] Maurice Coello M.D. [id number] Lymphocytes (Bld) [#/Vol] 0.76 10*3/uL Low 0.90-4.00 [facility] Comment on above: Performed By: #### 4 7638 #### LAB [address] [address] Maurice Coello M.D. [id number] Lymphocytes/100 WBC (Bld) 9.6 % [facility] Comment on above: Performed By: #### 4 1866 #### LAB [address] [address] Maurice Coello M.D. [id number] MCH (RBC) [Entitic mass] 25.7 pg Low 26.0-34.0 [facility] Comment on above: Performed By: #### 4 5957 #### LAB [address] [address] Maurice Coello M.D. [id number] MCV (RBC) [Entitic vol] 83.4 fL Normal 80.0-100.0 [facility] [place] [facility] Comment on above: Performed By: #### 4 4986 #### LAB [address] [address] Maurice Coello M.D. [id number] MEAN CORPUSCULAR HEMOGLOBIN CONC 30.9 g/dL Low 31.0-37.0 [facility] Comment on above: Performed By: #### 4 6932 #### LAB [address] [address] Maurice Coello M.D. [id number] Monocytes (Bld) [#/Vol] 0.08 10*3/uL Low 0.30-0.90 [facility] Comment on above: Performed By: #### 4 6932 #### LAB [address] [address] Maurice Coello M.D. [id number] Monocytes/100 WBC (Bld) 1.0 % Normal [facility] [place] [facility] Comment on above: Performed By: #### 4 6932 #### LAB [address] [address] Maurice Coello M.D. [id number] NEUTROPHILS ABSOLUTE COUNT 7.04 K/mcL High 1.70-7.00 [facility] Comment on above: Performed By: #### 4 6932 #### LAB [address] [address] Maurice Coello M.D. [id number] Neutrophils/100 WBC (Bld) 88.9 % Normal [facility] Comment on above: Performed By: #### 4 6932 #### LAB [address] [address] Maurice Coello M.D. [id number] Platelet mean volume (Bld) [Entitic vol] 10.2 fL Normal 9.4-12.4 [facility] Comment on above: Performed By: #### 4 6988 #### LAB [address] [address] Maurice Coello M.D. [id number] Platelets (Bld) [#/Vol] 278 10*3/uL Normal 150-400 [facility] Comment on above: Performed By: #### 4 6912 #### MH LAB [address] [address] Maurice Coello M.D. [id number] RBC (Bld) [#/Vol] 4.39 10*6/uL Normal 4.00-5.20 [facility] Comment on above: Performed By: #### 4 6932 #### MH LAB [address] [address] Maurice Coello M.D. [id number] WBC (Bld) [#/Vol] 7.92 10*3/uL Normal 4.50-11.00 [facility] Comment on above: Performed By: #### 4 6932 #### LAB [address] [address] Maurice Coello M.D. [id number] CK [Catalytic activity/Vol]o n 02-14-2025 Interpretation and review of laboratory results Abnormal [facility] CPKon 02-14-2025 CPK 76293 U/L High 40-170 [facility] Comment on above: Performed By: #### 4 8261 #### LAB [address] [address] Maurice Coello M.D. [id number] CPK NO MBon 02-14-2025 CK [Catalytic activity/Vol] 60951 U/L High 40 - 170 U/L [facility] EKGon 02-14-2025 [facility] MAGNESIUM LEVELon 02-14-2025 Magnesium [Mass/Vol] 1.8 mg/dL Normal 1.6-2.4 [facility] Comment on above: Performed By: #### 4 6109 ####MH LAB [address] [address] Maurice Coello M.D. [id number] MRSA DNA AMPLIFIED PROBEon 0 02-14-2025 MRSA DNA AMPLIFIED PROBE Negative Normal Not Detected, MRSA NEGATIVE [facility] Comment on above: Performed By: #### 4 8061 ####MH LAB [address] [address] Maurice Coello M.D. [id number] MRSA DNA Amplified ProbeOrde red By: Jonatan West on 02-14-2025 MRSA DNA CATRINA+probe Ql (Unsp spec) Negative Not Detected, MRSA NEGATIVE [facility] MRSA DNA CATRINA+probe Ql (Unsp spec)Ordered By: Jonatan West on 02-14-2025 Interpretation and review of laboratory results Normal [facility] Magnesiumon 02-14-2025 Magnesium [Mass/Vol] 1.8 mg/dL 1.6 - 2 .4 mg/dL [facility] Magnesium [Mass/Vol]on 02-14 Interpretation and review of laboratory results Normal [facility] No Panel Informationon 02-14 Interpretation and review of laboratory results Abnormal [facility] TROPONIN X 2 (NOW AND REPEAT IN 2 HOURS)on 02-14-2025 TROPONIN T DELTA % NG/L -23 % Off scale low <20 % of Baseline Troponin [facility] Comment on above: Performed By: #### 4 [id number] #### LAB [address] [address] Maurice Coello M.D. [id number] TROPONIN T DELTA CHANGE INTERPRETATION Probable acute injury or myocardial infarction. Normal [facility] Comment on above: Performed By: #### 4 6932 #### LAB [address] [address] Maurice Coello M.D. [id number] TROPONIN T NG/L 76 ng/L Off scale high <=14 [facility] Comment on above: Performed By: #### 4 6932 #### LAB [address] [address] Maurice Coello M.D. [id number] TSHon 02-14-2025 TSH Qn 0.13 m[IU]/L Low 0.27-4.20 [facility] Comment on above: Performed By: #### 4 6613 #### LAB [address] [address] Maurice Coello M.D. [id number] TSH DL <= 0.005 mIU/L Qnon 0 02-14-2025 TSH Qn 0.13 m[IU]/L Low [facility] Troponin x 2 (Now and Repeat in 2 Hours)on 02-14-2025 Interp Troponin T Delta Change Probable acute injury or myocardial infarction. [facility] Interpretation and review of laboratory results Abnormal [facility] Troponin T Delta % -23 % Critically low <20% of Baseline Troponin [facility] Troponin T.cardiac High sensitivity method [Mass/Vol] 76 ng/L Critically high NINF - 14 ng/L [facility] Inter Troponin T Delta Change Probable non-acute cardiac injury or late presentation of acute injury. [facility] Interpretation and review of laboratory results Abnormal [facility] Troponin T Delta % -16 % <20% of Baseline Troponin [facility] Troponin T.cardiac High sensitivity method [Mass/Vol] 83 ng/L Critically high NINF - 14 ng/L [facility] BASIC METABOLIC PANELon 02-04 Anion gap [Moles/Vol] 18 mmol/L Normal 10-[address] [facility] Comment on above: Order Comment: Pride Study Cut-offs Rule In: < /= 50 Years >450 pg/mL 51 Years - 75 Years >900 pg/mL 76 Years - 99 Years >1800 pg/mL Rule Out: All patients <300 pg/mL Performed By: #### 4 7395 #### LAB [address] [address] Maurice Coello M.D. [id number] Calcium [Mass/Vol] 9.7 mg/dL Normal 8.4-10.2 [facility] Comment on above: Order Comment: Pride Study Cut-offs Rule In: < /= 50 Years >450 pg/mL 51 Years - 75 Years >900 pg/mL 76 Years - 99 Years >1800 pg/mL Rule Out: All patients <300 pg/mL Performed By: #### 4 7395 #### LAB [address] [address] Maurice Coello M.D. [id number] Chloride [Moles/Vol] 95 mmol/L Low 98-108 [facility] Comment on above: Order Comment: Pride Study Cut-offs Rule In: < /= 50 Years >450 pg/mL 51 Years - 75 Years >900 pg/mL 76 Years - 99 Years >1800 pg/mL Rule Out: All patients <300 pg/mL Performed By: #### 4 7395 #### LAB [address] [place], [place] [address] Maurice Coello M.D. [id number] Creatinine [Mass/Vol] 1.66 mg/dL High 0.60-1.[address] [facility] Comment on above: Order Comment: Pride Study Cut-offs Rule In: < /= 50 Years >450 pg/mL 51 Years - 75 Years >900 pg/mL 76 Years - 99 Years >1800 pg/mL Rule Out: All patients <300 pg/mL Performed By: #### 4 7395 #### LAB [address] [address] Maurice Coello M.D. [id number] EGFR 34 mL/min/1.73 m2 Low >=60 [facility] Comment on above: Order Comment: Pride Study Cut-offs Rule In: < /= 50 Years >450 pg/mL 51 Years - 75 Years >900 pg/mL 76 Years - 99 Years >1800 pg/mL Rule Out: All patients <300 pg/mL Result Comment: Ericka mated GFR was calculated using the 2020 CKD-EPI creatinine equation. Performed By: #### 4 7395 #### LAB [address] [address] Maurice Coello M.D. [id number] Glucose [Mass/Vol] 128 mg/dL High 65-99 [facility] Comment on above: Order Comment: Pride Study Cut-offs Rule In: < /= 50 Years >450 pg/mL 51 Years - 75 Years >900 pg/mL 76 Years - 99 Years >1800 pg/mL Rule Out: All patients <300 pg/mL Performed By: #### 4 7395 #### LAB [address] [place], [place] [address] Maurice Coello M.D. [id number] HCO3 (Bld) [Moles/Vol] 27 mmol/L Normal 21-32 [facility] Comment on above: Order Comment: Pride Study Cut-offs Rule In: < /= 50 Years >450 pg/mL 51 Years - 75 Years >900 pg/mL 76 Years - 99 Years >1800 pg/mL Rule Out: All patients <300 pg/mL Performed By: #### 4 7395 #### LAB [address] [place], [place] [address] Maurice Coello M.D. [id number] Potassium [Moles/Vol] 4.5 mmol/L Normal 3.5-5.[address] [facility] Comment on above: Order Comment: Pride Study Cut-offs Rule In: < /= 50 Years >450 pg/mL 51 Years - 75 Years >900 pg/mL 76 Years - 99 Years >1800 pg/mL Rule Out: All patients <300 pg/mL Performed By: #### 4 7395 #### LAB [address] [place], [place] [address] Maurice Coello M.D. [id number] Sodium [Moles/Vol] 135 mmol/L Normal 135-145 [facility] Comment on above: Order Comment: Pride Study Cut-offs Rule In: < /= 50 Years >450 pg/mL 51 Years - 75 Years >900 pg/mL 76 Years - 99 Years >1800 pg/mL Rule Out: All patients <300 pg/mL Performed By: #### 4 7395 #### LAB [address] [place], [place] [address] Maurice Coello M.D. [id number] Urea nitrogen [Mass/Vol] 18 mg/dL Normal 8- [facility] Comment on above: Order Comment: Pride Study Cut-offs Rule In: < /= 50 Years >450 pg/mL 51 Years - 75 Years >900 pg/mL 76 Years - 99 Years >1800 pg/mL Rule Out: All patients <300 pg/mL Performed By: #### 4 7395 #### LAB [address] [id number] Maurice Coello M.D. [id number] Urea nitrogen/Creatinine [Mass ratio] 10.8 mg/mg Normal 10.0-20.0 [facility] Comment on above: Order Comment: Pride Study Cut-offs Rule In: < /= 50 Years >450 pg/mL 51 Years - 75 Years >900 pg/mL 76 Years - 99 Years >1800 pg/mL Rule Out: All patients <300 pg/mL Performed By: #### 4 7395 #### LAB [address] [id number] Maurice Coello M.D. [id number] BLOOD CULTURE AEROBIC/ANAERO BICon 02-13-2025 BLOOD CULTURE AEROBIC/ANAEROBIC BLOOD CULTURE No Growth after 5 days Normal [facility] Comment on above: Performed By: #### 4 4014 #### LAB [address] [place], [place] [address] Maurice Coello M.D. [id number] BNP (NT Pro BNP)on Natriuretic peptide.B prohormone N-Terminal [Mass/Vol] 3931 pg/mL High 0 - 300 pg/mL [facility] Basic metabolic 2000 panelon 02-13-2025 Anion gap [Moles/Vol] 18 mmol/L 10 - 2 0 mmol/L [facility] Calcium [Mass/Vol] 9.7 mg/dL 8.4 - 10. 2 mg/dL [facility] Chloride [Moles/Vol] 95 mmol/L Low 98 - 10 8 mmol/L [facility] Creatinine [Mass/Vol] 1.66 mg/dL High 0.60 - 1.20 mg/dL [facility] GFR/1.73 sq M.predicted CKD-EPI (S/P/Bld) [Vol rate/Area] 34 Low - PINF [facility] Comment on above: Estimated GFR was ca lculated using the 2020 CKD-EPI creatinine equation. Glucose [Mass/Vol] 128 mg/dL High 65 - 99 mg/dL [facility] HCO3 [Moles/Vol] 27 mmol/L 21 - 32 mmol/L [facility] Potassium [Moles/Vol] 4.5 mmol/L 3.5 - 5.1 mmol/L [facility] Sodium [Moles/Vol] 135 mmol/L 135 - 145 mmol/L [facility] Urea nitrogen [Mass/Vol] 18 mg/dL 8 - 25 mg/dL [facility] Urea nitrogen/Creatinine [Mass ratio] 10.8 mg/mg 10.0 - 20.0 [facility] has implemented the eGFR calculation approach that does not have a coefficient for race that conforms to the NKF-ASN Task Force Recommendations. [facility] CBC Auto Differentialon 02-04 Basophils (Bld) [#/Vol] 0.04 10*3/uL [facility] Basophils/100 WBC (Bld) 0.4 % [facility] Eosinophils (Bld) [#/Vol] 0.01 10*3/uL [facility] Eosinophils/100 WBC (Bld) 0.1 % [facility] Erythrocyte distribution width (RBC) [Entitic vol] 13.7 % 11.6 - 14.8 % [facility] Hematocrit (Bld) [Volume fraction] 42.7 % 36.0 - 46.0 % [facility] Hemoglobin (Bld) [Mass/Vol] 13 g/dL 12.0 - 16.0 g/dL [facility] Immature granulocytes (Bld) [#/Vol] 0.05 10*3/uL [facility] Immature granulocytes/100 WBC (Bld) 0.4 % [facility] Comment on above: The IG parameter is the percentage of metamyelocytes, myelocytes and promyelocytes. An immature granulocyte count (IG) of 1% or more suggests the possibility of infection, an IG count of 3% is very likely related to an infection. Interpretation and review of laboratory results Abnormal [facility] Lymphocytes (Bld) [#/Vol] 0.93 10*3/uL [facility] Lymphocytes/100 WBC (Bld) 8.2 % [facility] MCH (RBC) [Entitic mass] 25.5 pg Low 26.0 - 34.0 pg [facility] MCHC (RBC) [Mass/Vol] 30.4 g/dL Low 31.0 - 37.0 g/dL [facility] MCV (RBC) [Entitic vol] 83.7 fL 80.0 - 100.0 fL [facility] Monocytes (Bld) [#/Vol] 0.55 10*3/uL [facility] Monocytes/100 WBC (Bld) 4.8 % [facility] Neutrophils (Bld) [#/Vol] 9.81 10*3/uL High [facility] Neutrophils/100 WBC (Bld) 86.1 % [facility] Nucleated RBC (Bld) [#/Vol] 0 10*3/uL [facility] Nucleated RBC/100 WBC (Bld) [Ratio] 0 % [facility] Platelet mean volume (Bld) [Entitic vol] 10.1 fL 9.4 - 12.4 fL [facility] Platelets (Bld) [#/Vol] 319 10*3/uL [facility] RBC (Bld) [#/Vol] 5.1 10*6/uL [facility] [place] [facility] alth WBC (Bld) [#/Vol] 11.39 10*3/uL [facility] CBC WITH AUTO DIFFERENTIALon 02-13-2025 AUTO NRBC 0.0 % Normal [facility] Comment on above: Performed By: #### L [id number] #### LAB [address] [address] Maurice Coello M.D. [id number] AUTO NRBC ABS COUNT 0.00 K/mcL Normal 0.00-0.00 [facility] Comment on above: Performed By: #### L [id number] #### LAB [address] [address] Maurice Coello M.D. [id number] BASOPHILS ABSOLUTE COUNT 0.04 K/mcL Normal 0.00-0.30 [facility] Comment on above: Performed By: #### L [id number] #### LAB [address] [address] Maurice Coello M.D. [id number] Basophils/100 WBC (Bld) 0.4 % Normal [facility] [place] [facility] Comment on above: Performed By: #### L [id number] #### LAB [address] [place] [address] Maurice Coello M.D. [id number] Eosinophils (Bld) [#/Vol] 0.01 10*3/uL Normal 0.00-0.50 [facility] Comment on above: Performed By: #### L [id number] #### LAB [address] [place] [address] Maurice Coello M.D. [id number] Eosinophils/100 WBC (Bld) 0.1 % Normal [facility] Comment on above: Performed By: #### L [id number] #### LAB [address] [address] Maurice Coello M.D. [id number] Erythrocyte distribution width (RBC) [Ratio] 13.7 % Normal 11.6-14.8 [facility] Comment on above: Performed By: #### L [id number] #### LAB [address] [address] Maurice Coello M.D. [id number] Hematocrit (Bld) [Volume fraction] 42.7 % Normal 36.0-46.0 [facility] Comment on above: Performed By: #### L [id number] #### LAB [address] [address] Maurice Coello M.D. [id number] Hemoglobin (Bld) [Mass/Vol] 13.0 g/dL Normal 12.0-16.0 [facility] Comment on above: Performed By: #### L [id number] #### LAB [address] [address] Maurice Coello M.D. [id number] IG ABSOLUTE 0.05 K/mcL Normal 0.00-0.30 [facility] Comment on above: Performed By: #### L [id number] #### LAB [address] [address] Maurice Coello M.D. [id number] IG PERCENT 0.40 % [facility] Comment on above: Result Comment: The IG parameter is the percentage of metamyelocytes, myelocytes and promyelocytes. An immature granulocyte count (IG) of 1% or more suggests the possibility of infection, an IG count of 3% is very likely related to an infection. Performed By: #### L [id number] #### LAB [address] [address] Maurice Coello M.D. [id number] Lymphocytes (Bld) [#/Vol] 0.93 10*3/uL Normal 0.90-4.00 [facility] Comment on above: Performed By: #### L [id number] #### LAB [address] [address] Maurice Coello M.D. [id number] Lymphocytes/100 WBC (Bld) 8.2 % [facility] Comment on above: Performed By: #### L [id number] #### LAB [address] [place] [address] Maurice Coello M.D. [id number] MCH (RBC) [Entitic mass] 25.5 pg Low 26.0-34.0 [facility] Comment on above: Performed By: #### L [id number] #### LAB [address] [address] Maurice Coello M.D. [id number] MCV (RBC) [Entitic vol] 83.7 fL Normal 80.0-100.0 [facility] [place] [facility] Comment on above: Performed By: #### L [id number] #### LAB [address] [address] Maurice Coello M.D. [id number] MEAN CORPUSCULAR HEMOGLOBIN CONC 30.4 g/dL Low 31.0-37.0 [facility] Comment on above: Performed By: #### L [id number] #### LAB [address] [address] Maurice Coello M.D. [id number] Monocytes (Bld) [#/Vol] 0.55 10*3/uL Normal 0.30-0.90 [facility] Comment on above: Performed By: #### L [id number] #### LAB [address] [address] Maurice Coello M.D. [id number] Monocytes/100 WBC (Bld) 4.8 % Normal [facility] [place] [facility] Comment on above: Performed By: #### L [id number] #### LAB [address] [address] Maurice Coello M.D. [id number] NEUTROPHILS ABSOLUTE COUNT 9.81 K/mcL High 1.70-7.00 [facility] Comment on above: Performed By: #### L [id number] #### LAB [address] [address] Maurice Coello M.D. [id number] Neutrophils/100 WBC (Bld) 86.1 % Normal [facility] Comment on above: Performed By: #### L [id number] #### LAB [address] [address] Maurice Coello M.D. [id number] Platelet mean volume (Bld) [Entitic vol] 10.1 fL Normal 9.4-12.4 [facility] Comment on above: Performed By: #### L [id number] ####MH LAB [address] [address] Maurice Coello M.D. [id number] Platelets (Bld) [#/Vol] 319 10*3/uL Normal 150-400 [facility] Comment on above: Performed By: #### L [id number] ####MH LAB [address] [address] Maurice Coello M.D. [id number] RBC (Bld) [#/Vol] 5.10 10*6/uL Normal 4.00-5.20 [facility] Comment on above: Performed By: #### L [id number] #### LAB [address] [address] Maurice Coello M.D. [id number] WBC (Bld) [#/Vol] 11.39 10*3/uL High 4.50-11.00 [facility] Comment on above: Performed By: #### L [id number] #### LAB [address] [address] Maurice Coello M.D. [id number] CK [Catalytic activity/Vol]o n 02-13-2025 Interpretation and review of laboratory results Abnormal [facility] Manual dilution performed [facility] COVID-19/INFLUENZA A,B MOLEC ULARon 02-13-2025 SARS-CoV-2 (COVID-19) Ab IA Ql SARS-COV-2 (SOFIE) Not Detected INFLUENZA A (SOFIE) Not Detected INFLUENZA B (SOFIE) Not Detected Normal Not Detected [facility] Comment on above: Performed By: #### L [id number] ####MH LAB [address] [address] Maurice Coello M.D. [id number] CPKon 02-13-2025 CPK 91832 U/L High 40-170 [facility] Comment on above: Order Comment: Pride Study Cut-offs Rule In: < /= 50 Years >450 pg/mL 51 Years - 75 Years >900 pg/mL 76 Years - 99 Years >1800 pg/mL Rule Out: All patients <300 pg/mL Performed By: #### 4 7395 #### MH LAB [address] [place], [place] [address] Maurice Coello M.D. [id number] CPK NO MBon 02-13-2025 CK [Catalytic activity/Vol] 24424 U/L High 40 - 170 U/L [facility] CT Abdomen and Pelvis W cont rast [...] focal consolidation is seen. Workstation ID: [id number] EXAMINATION: CTA PULM ART AND CT ABD [...] changes of the lumbar spine is seen. Iggli Matias Holguin MD - 02/13/2025 EXAMINATION: CTA [...] focal consolidation is seen. Workstation ID: [id number] [facility] Radiology Study observation (narrative) [facility] CT Abdomen and Pelvis W cont rast IVOrdered By: Matias Adler on 02-13-2025 [facility] Work Phone: CTA PULM ART AND CT [...] on MonFeb 13, 2025 7:20:00 PM EDT [facility] Comment on above: Order Comment: [...] without acute dynamic changes, no STEMI. NSR. WI interval 144 ms. QRS 90 ms. BPM: 94 Clinical impression: normal ECG AUTHENTICATED BY ASTRID SANDERS, ON 02/13/2025 19:13:57 Normal [facility] ED Procedure EKG 12-lead Date/Time: 02/13/2025 3:51 PM Performed by: Astrid Sanders DO Authorized by: Astrid Sanders DO Interpreted by ED attending physician Comparison: compared with previous ECG from 09/21/2024 Similar to previous ECG Rhythm: sinus rhythm and sinus tachycardia BPM: 101 Clinical impression: abnormal ECG and sinus tachycardia Comments: Sinus tachycardia. WI interval 140 ms. QRS [address] and T wave abnormality. No STEMI. AUTHENTICATED BY ASTRID SANDERS, ON 02/13/2025 16:34:05 Normal [facility] ED Prov Noteon 02-13-2025 ED Prov Note EMERGENCY MEDICINE PROVIDER NOTE WELCOME TO [facility] NAME: Radha Shafer AGE: 64 y.o. SEX: female : 1960 ENCOUNTER DATE: 02/13/25 CSN: [id number] PCP: Erin Physician History of Presenting Illness/Medical [...] was given 4 baby aspirin by EMS [employer]. No nitroglycerin. Patient states that she was [...] ear normal. Nose: Nose normal. Mouth/Throat: Lips: Plain. Mouth: Mucous membranes are moist. Eyes: General: [...] All other components within normal limits Narrative: [facility] has implemented the eGFR calculation approach that does not have a coefficient for race that conforms to the NKF-ASN Task Force Recommendations. NT PRO BNP - Abnormal; Notable for the following components: NT-Pro BNP 3,931 (*) All other components within normal limits Narra (more content not included)... Normal [facility] EKG 12-leadon 02-13-2025 Atrial Rate 101 BPM [facility] P [place] 65 degrees [facility] P-R Interval 148 ms [facility] Q-T Interval 368 ms [facility] QRS Duration 82 ms [facility] QTC Calculation (Bezet) 477 ms [facility] R [place] -11 degrees [facility] T [place] 65 degrees [facility] Ventricular Rate 101 BPM [facility] Sinus tachycardia Minimal voltage criteria for LVH, may be normal variant ( R in aVL ) Nonspecific ST and T wave abnormality Abnormal ECG ECG Cart Interpretation see physician note for interpretation. Confirmed by Yajaira Hernandez ([id number]) on 02/13/2025 8:27:59 PM MUSE [facility] Influenza virus A and B RNA and SARS-CoV-2 (COVID-19) N gene panel CATRINA+probe (Resp)Ordered By: Christine Dahl on 02-13-2025 FLUAV RNA CATRINA+probe Ql (Unsp spec) Not detected Not Detected [facility] FLUBV RNA CATRINA+probe Ql (Unsp spec) Not detected Not Detected [facility] Interpretation and review of laboratory results Normal [facility] SARS-CoV-2 (COVID-19) RNA CATRINA+probe Ql (Resp) Not detected Not Detected [facility] NT PRO BNPon 02-13-2025 Natriuretic peptide B (Bld) [Mass/Vol] 3931 pg/mL High 0-300 [facility] Comment on above: Order Comment: Pride Study Cut-offs Rule In: < /= 50 Years >450 pg/mL 51 Years - 75 Years >900 pg/mL 76 Years - 99 Years >1800 pg/mL Rule Out: All patients <300 pg/mL Performed By: #### 4 [id number] #### LAB [address] [place], [place] [address] Maurice Coello M.D. [id number] Natriuretic peptide.B jovon rawls N-Terminal [Mass/Vol]on 02-13-2025 Pride Study Cut-offs Rule In: < /= 50 Years >450 pg/mL 51 Years - 75 Years >900 pg/mL 76 Years - 99 Years >1800 pg/mL Rule Out: All patients <300 pg/mL [facility] No Panel Informationon 02-13 Extra Tube Hold for add-ons. [facility] Comment on above: Auto resulted. [facility] Interpretation and review of laboratory results Abnormal [facility] POC VENOUS BLOOD GAS PANEL-P ULDamari - Lexa 02-13-2025 BASE EXCESS, VENOUS 3.4 High -2.0-2.0 [facility] Comment on above: Performed By: #### 4 6933 #### LAB [address] [address] Maurice Coello M.D. [id number] CALCIUM IONIZED 4.6 mg/dL Normal 4.5-5.3 [facility] Comment on above: Performed By: #### 4 6997 #### [facility] [address] [address] Maurice Coello M.D. [id number] CARBOXYHEMOGLOBIN 2.0 % of total Hb High <=1.5 [facility] Comment on above: Result Comment: Refe rence Ranges: Suburban Non-smokers: <1.5% Smokers: 1.5-5.0% Heavy Smokers: 5.0-9.0% Performed By: #### 4 6928 #### LAB [address] [address] Maurice Coello M.D. [id number] Chloride [Moles/Vol] 95 mmol/L Low 98-108 [facility] Comment on above: Performed By: #### 4 6972 #### MH LAB [address] [address] Maurice Coello M.D. [id number] FIO2 21 Normal [facility] Comment on above: Performed By: #### 4 6965 #### MH LAB [address] [place], [place] [address] Maurice Coello M.D. [id number] Glucose [Mass/Vol] 124 mg/dL High 65-99 [facility] Comment on above: Performed By: #### 4 6932 #### LAB [address] [address] Maurice Coello M.D. [id number] HCO3 (Bld) [Moles/Vol] 30.7 mmol/L High 24.0-28.0 [facility] Comment on above: Performed By: #### 4 6905 #### LAB [address] [address] Maurice Coello M.D. [id number] Hematocrit (Bld) [Volume fraction] 42.1 % Normal 36.0-46.0 [facility] Comment on above: Performed By: #### 4 6984 #### LAB [address] [address] Maurice Coello M.D. [id number] Hemoglobin (Bld) [Mass/Vol] 13.7 g/dL Normal 12.0-16.0 [facility] Comment on above: Performed By: #### 4 6346 #### LAB [address] [address] Maurice Coello M.D. [id number] LACTIC ACID, WHOLE BLOOD 1.5 mmol/L Normal 0.6-2.0 [facility] Comment on above: Performed By: #### 4 6911 #### LAB [address] [address] Maurice Coello M.D. [id number] METHEMOGLOBIN < Normal 0.0-2.0 [facility] Comment on above: Performed By: #### 4 9555 #### LAB [address] [address] Maurice Coello M.D. [id number] O2HB 53.3 % Normal No established reference range [facility] Comment on above: Performed By: #### 4 0221 #### LAB [address] [address] Maurice Coello M.D. [id number] Oxygen saturation in Blood 54.8 % Normal 40.0-70.0 [facility] Comment on above: Performed By: #### 4 6997 #### MH LAB [address] [address] Maurice Coello M.D. [id number] PCO2 VENOUS 57.1 mm Hg High 41.0-51.0 [facility] Comment on above: Performed By: #### 4 6932 #### MH LAB [address] [address] Maurice Coello M.D. [id number] PH VENOUS 7.34 Normal 7.32-7.42 [facility] Comment on above: Performed By: #### 4 6932 #### MH LAB [address] [address] Maurice Coello M.D. [id number] PO2 VENOUS 30 mm Hg Normal 25-40 [facility] Comment on above: Performed By: #### 4 6932 #### MH LAB [address] [address] Maurice Coello M.D. [id number] Potassium [Moles/Vol] 4.3 mmol/L Normal 3.5-5.1 [facility] Comment on above: Performed By: #### 4 6932 #### LAB [address] [address] Maurice Coello M.D. [id number] Sodium [Moles/Vol] 137 mmol/L Normal 135-145 [facility] Comment on above: Performed By: #### 4 6932 #### LAB [address] [address] Maurice Coello M.D. [id number] SPECIMEN SOURCE RADIANCE Not specified Normal [facility] Comment on above: Performed By: #### 4 6932 #### MH LAB [address] [address] Maurice Coello M.D. [id number] POC Venous Blood Gas Panel[facility] 02-13-2025 Base excess Calc (BldV) [Moles/Vol] 3.4 mmol/L High -2.0 - 2.0 [facility] Calcium.ionized [Mass/Vol] 4.6 mg/dL 4.5 - 5.3 mg/dL [facility] Carboxyhemoglobin (BldA) [Mass fraction] 2 High NINF [facility] Comment on above: Reference Ranges: Suburban Non-smokers: <1.5% Smokers: 1.5-5.0% Heavy Smokers: 5.0-9.0% CO2 (BldV) [Partial pressure] 57.1 mm[Hg] High [facility] Glucose post fast [Mass/Vol] 124 mg/dL High 65 - 99 mg/dL [facility] Hematocrit (BldA) [Volume fraction] 42.1 % 36.0 - 46.0 % [facility] Inhaled oxygen concentration 21 % [facility] Interpretation and review of laboratory results Abnormal [facility] Lactate [Moles/Vol] 1.5 mmol/L 0.6 - 2. 0 mmol/L [facility] Methemoglobin (BldA) [Mass fraction] % 0.0 - 2.0 % [facility] Oxygen (BldV) [Partial pressure] 30 mm[Hg] [facility] Oxygen saturation in Venous blood 54.8 % 40.0 - 70.0 % [facility] Oxyhemoglobin (BldA) [Mass fraction] 53.3 % -100.0 - 101.0 % [facility] pH (BldV) 7.34 [pH] 7.32 - 7.42 [facility] Specimen source Nom (Unsp spec) Not specified [facility] TROPONIN X 2 (NOW AND REPEAT IN 2 HOURS)on 02-13-2025 TROPONIN T DELTA % NG/L -16 % Normal <20% of Baseline Troponin [facility] Comment on above: Performed By: #### 4 6992 #### LAB [address] [address] Maurice Coello M.D. [id number] TROPONIN T DELTA CHANGE INTERPRETATION Probable non-acute cardiac injury or late presentation of acute injury. Normal [facility] Comment on above: Performed By: #### 4 6927 #### MH LAB [address] [address] Maurice Coello M.D. [id number] TROPONIN T NG/L 83 ng/L Off scale high <=14 [facility] Comment on above: Performed By: #### 4 6967 #### LAB [address] [address] Maurice Coello M.D. [id number] BASELINE TROPONIN T NG/L 99 ng/L Off scale high <=14 [facility] Comment on above: Performed By: #### 4 6608 ####MH LAB [address] [address] Maurice Coello M.D. [id number] TROPONIN T INTERPRETATION Possible acute cardiac injury. [facility] Comment on above: Performed By: #### 4 6608 ####MH LAB [address] [address] Maurice Coello M.D. [id number] BASELINE TROPONIN T NG/L 100 ng/L Off scale high <=14 [facility] Comment on above: Performed By: #### 4 6608 ####MH LAB [address] [address] Maurice Coello M.D. [id number] TROPONIN T INTERPRETATION Possible acute cardiac injury. [facility] Comment on above: Performed By: #### 4 6608 ####MH LAB [address] [address] Maurice Coello M.D. [id number] Troponin x 2 (Now and Repeat in 2 hours)on 02-13-2025 Interpretation and review of laboratory results Abnormal [facility] Troponin T 99 ng/L Critically high NINF - 14 ng/L [facility] Troponin T Interpretation Possible acute cardiac injury. [facility] Troponin x 2 (Now and Repeat in 2 hours)Ordered By: Zaire Sparrow on 02-13-2025 Interpretation and review of laboratory results Abnormal [facility] Troponin T 100 ng/L Critically high NINF - 14 ng/L [facility] Troponin T Interpretation Possible acute cardiac injury. [facility] URINALYSISon 02-13-2025 AMORPHOUS CRYSTALS Few Abnormal None Seen , Rare [facility] Comment on above: Order Comment: Micro scopic examination is performed on all urinalysis samples and only positive findings are reported. The test for blood on the chemical analytic portion of urinalysis may also be positive due to hemoglobinuria and myoglobinuria and if red blood cells are present they are quantified by microscopic examination. Performed By: #### 4 6625 ####MH LAB [address] [address] Maurice Coello M.D. [id number] BACTERIA, URINE None Seen Normal None Seen [facility] Comment on above: Order Comment: Micro scopic examination is performed on all urinalysis samples and only positive findings are reported. The test for blood on the chemical analytic portion of urinalysis may also be positive due to hemoglobinuria and myoglobinuria and if red blood cells are present they are quantified by microscopic examination. Performed By: #### 4 6625 #### LAB [address] [address] Maurice Coello M.D. [id number] BILIRUBIN, URINE Negative Normal Negative [facility] Comment on above: Order Comment: Micro scopic examination is performed on all urinalysis samples and only positive findings are reported. The test for blood on the chemical analytic portion of urinalysis may also be positive due to hemoglobinuria and myoglobinuria and if red blood cells are present they are quantified by microscopic examination. Performed By: #### 4 6625 #### LAB [address] [address] Maurice Coello M.D. [id number] BLOOD, URINE Large Abnormal Negative [facility] Comment on above: Order Comment: Micro scopic examination is performed on all urinalysis samples and only positive findings are reported. The test for blood on the chemical analytic portion of urinalysis may also be positive due to hemoglobinuria and myoglobinuria and if red blood cells are present they are quantified by microscopic examination. Performed By: #### 4 6625 #### LAB [address] [address] Maurice Coello M.D. [id number] Clarity (U) Clear Normal Clear [facility] Comment on above: Order Comment: Micro scopic examination is performed on all urinalysis samples and only positive findings are reported. The test for blood on the chemical analytic portion of urinalysis may also be positive due to hemoglobinuria and myoglobinuria and if red blood cells are present they are quantified by microscopic examination. Performed By: #### 4 6625 ####MH LAB [address] [address] Maurice Coello M.D. [id number] Color (U) Colorless Normal Colorless, Yellow [facility] Comment on above: Order Comment: Micro scopic examination is performed on all urinalysis samples and only positive findings are reported. The test for blood on the chemical analytic portion of urinalysis may also be positive due to hemoglobinuria and myoglobinuria and if red blood cells are present they are quantified by microscopic examination. Performed By: #### 4 6625 #### LAB [address] [address] Maurice Coello M.D. [id number] Glucose Ql (U) Negative Normal Negative [facility] Comment on above: Order Comment: Micro scopic examination is performed on all urinalysis samples and only positive findings are reported. The test for blood on the chemical analytic portion of urinalysis may also be positive due to hemoglobinuria and myoglobinuria and if red blood cells are present they are quantified by microscopic examination. Performed By: #### 4 6625 #### LAB [address] [place] [address] Maurice Coello M.D. [id number] Ketones Ql (U) Negative Normal Negative [facility] Comment on above: Order Comment: Micro scopic examination is performed on all urinalysis samples and only positive findings are reported. The test for blood on the chemical analytic portion of urinalysis may also be positive due to hemoglobinuria and myoglobinuria and if red blood cells are present they are quantified by microscopic examination. Performed By: #### 4 6625 #### LAB [address] [address] Maurice Coello M.D. [id number] Leukocyte esterase Test strip Ql (U) Negative Normal Negative [facility] Comment on above: Order Comment: Micro scopic examination is performed on all urinalysis samples and only positive findings are reported. The test for blood on the chemical analytic portion of urinalysis may also be positive due to hemoglobinuria and myoglobinuria and if red blood cells are present they are quantified by microscopic examination. Performed By: #### 4 6625 #### LAB [address] [address] Maurice Coello M.D. [id number] NITRITE, URINE Negative Normal Negative [facility] Comment on above: Order Comment: Micro scopic examination is performed on all urinalysis samples and only positive findings are reported. The test for blood on the chemical analytic portion of urinalysis may also be positive due to hemoglobinuria and myoglobinuria and if red blood cells are present they are quantified by microscopic examination. Performed By: #### 4 6625 #### LAB [address] [address] Maurice Coello M.D. [id number] pH (U) 5.5 [pH] Normal 5.0-7.0 [facility] Comment on above: Order Comment: Micro scopic examination is performed on all urinalysis samples and only positive findings are reported. The test for blood on the chemical analytic portion of urinalysis may also be positive due to hemoglobinuria and myoglobinuria and if red blood cells are present they are quantified by microscopic examination. Performed By: #### 4 6625 #### LAB [address] [place] [address] Maurice Coello M.D. [id number] Protein (U) [Mass/Vol] 30 mg/dL Abnormal Negative [facility] Comment on above: Order Comment: Micro [...] By: #### 4 6625 #### LAB [address] [place], [place] [address] Maurice Coello M.D. [id number] Specific gravity (U) [Rel density] 1.016 Normal 1.005-1.025 [facility] Comment on above: Order Comment: Micro scopic examination is performed on all urinalysis samples and only positive findings are reported. The test for blood on the chemical analytic portion of urinalysis may also be positive due to hemoglobinuria and myoglobinuria and if red blood cells are present they are quantified by microscopic examination. Performed By: #### 4 6625 #### LAB [address], [place] [address] Maurice Coello M.D. [id number] SQUAMOUS EPITHELIAL < Normal 0-4 [facility] [...] By: #### 4 6625 #### LAB [address], [place] [address] Maurice Coello M.D. [id number] TRANSITIONAL EPITHELIAL < Normal 0-1 [facility] [place] [facility] Comment on above: Order Comment: Micro scopic examination is performed on all urinalysis samples and only positive findings are reported. The test for blood on the chemical analytic portion of urinalysis may also be positive due to hemoglobinuria and myoglobinuria and if red blood cells are present they are quantified by microscopic examination. Performed By: #### 4 6625 #### LAB [address], [place] [address] Maurice Coello M.D. [id number] UROBILINOGEN, URINE <2.0 Normal <2.0 [facility] [...] By: #### 4 6625 #### LAB [address], [place] [address] Maurice Coello M.D. [id number] WBC LM.HPF (Urine sed) [#/Area] 1 /[HPF] Normal 0-5 [facility] Comment on above: Order Comment: Micro scopic examination is performed on all urinalysis samples and only positive findings are reported. The test for blood on the chemical analytic portion of urinalysis may also be positive due to hemoglobinuria and myoglobinuria and if red blood cells are present they are quantified by microscopic examination. Performed By: #### 4 6625 #### LAB [address] [place], [place] [address] Maurice Coello M.D. [id number] URINE AEROBIC CULTUREon 02-04 URINE AEROBIC CULTURE URINE CULTURE < 10,000 CFU/mL of normal urogenital microbiota Normal [facility] Comment on above: Performed By: #### 4 4053 #### [facility] [address], [place] [address] Arnel Marie M.D. [id number] UrinalysisOrdered By: Bhumi Teixeira on 02-13-2025 Bacteria Auto Ql (U) None Seen None Se en /hpf [facility] Bilirubin Ql (U) Negative Negative [facility] th Clarity Refractometry automated (U) Clear Clear [facility] Color (U) Colorless Colorless, Yellow [facility] Crystals.amorphous Computer assisted (U) [#/Area] Few Abnormal None Seen, Rare /hpf [facility] Epithelial cells.squamous Auto (Urine sed) [#/Area] [facility] Glucose Auto test strip (U) [Mass/Vol] Negative Negative mg/dL [facility] Hemoglobin Auto test strip Ql (U) Large Abnormal Negative [facility] Interpretation and review of laboratory results Abnormal [facility] Ketones (U) [Mass/Vol] Negative Negat radha mg/dL [facility] Leukocyte esterase Auto test strip Ql (U) Negative Negative [facility] Nitrite Auto test strip Ql (U) Negative Negative [facility] pH (U) 5.5 [pH] 5.0 - 7.0 [facility] Protein (U) [Mass/Vol] 30 mg/dL Abnormal Negative [facility] Comment on above: False positive resul ts may occur in urines with large amounts of hemoglobin, pH greater than 8.0, contrast medium, or disinfectants including ammonium compounds. Specific gravity (U) [Rel density] 1.016 1.005 - 1.025 [facility] Transitional cells Computer assisted (U) [#/Area] [facility] Urobilinogen (U) [Mass/Vol] mg/dL NINF - 2.0 mg/dL [facility] WBC Auto (Urine sed) [#/Area] 1 [facility] Microscopic examinat ion is performed on all urinalysis samples and only positive findings are reported. The test for blood on the chemical analytic portion of urinalysis may also be positive due to hemoglobinuria and myoglobinuria and if red blood cells are present they are quantified by microscopic examination. [facility] VBG (obtain and perform)on 0 02-13-2025 [facility] XR CHEST PA/APon 02-13-2025 XR CHEST PA/AP [...] on MonFeb 13, 2025 5:20:06 PM EDT [facility] Comment on above: Order Comment: [...] lung. The cardiac silhouette is not enlarged. [employer] Jason Panchal Serenity ryanne, DO - 02/13/2025 [...] No acute cardiopulmonary abnormality. Workstation ID: [id number] [facility] Radiology Study observation (narrative) [facility] XR Chest PA and Abdomen APOr dered By: Jason Panchal on 02-13-2025 [facility] Work Phone: Magnetic resonance imaging r eportOrdered By: Dev Escobar on 02-04-[address] [facility] Imaging Services [address] [place] [address] Spine Cervical (Routine) MR#: [id number] Acct: [id number] Name: RADHA SHAFER ANIL Rep #: [id number] : 1960 F 64 From: Pet er Peer DO PCP: Dr. Jennifer Gordon MD Status: REG CLI Study:Spine Cervical (Routine) Date of Exam: 02/03/25 Exam# [id number] Ordering Dr: Paul Whitehead PROCEDURE: SPINE CERVICAL [...] severe at the C5-6 level. Reading Location: [facility] CC: DANIEL Archer; Dr. Jennifer Gordon MD ~ It Program Auditor: Signed [facility] Spine Cervical (Routine)on 0 02-03-2025 Spine Cervical (Routine) Normal [facility] Orthopedic Visit Reporton Orthopedic Visit Report Normal [facility] Shoulder min 2 Viewson 01-21 Shoulder min 2 Views Normal [facility] Magnetic resonance imaging r eportOrdered By: Vaibhav Guevara on 01-14-[address] [facility] Services [address] [place] [address] Spine Lumbar (Routine) MR#: [id number] Acct: [id number] Name: RADHA SHAFER Rep #: [id number] : 1960 F 64 From: Shavonne Guevara MD PCP: Dr. Jennifer Gordon MD Status: REG CLI Study:Spine Lumbar (Routine) Date of Exam: 01/13/25 Exam# [id number] Ordering Dr: Rusty Dozier MD PROCEDURE: SPINE [...] significant spinal canal or foraminal stenosis. L1-2: Vcqadsws-ol-stjeut loss of disc height with diffuse disc bulging and anterior disc/osteophyte complex. No significant spinal canal or foraminal stenosis. L2-3: Diffuse disc bulging, asymmetric to the right with a superimposed right lateral disc protrusion, with eacitbgu-jj-gvmnrp loss of disc height. Relative narrowing of the right lateral recess. Mild facet arthropathy. Mild foraminal stenoses bilaterally. L3-4: Prominent diffuse disc bulging with moderate loss of disc height and lateral/anterior disc/osteophyte complexes. Small superimposed central disc protrusion. Nhujcbpk-by-rwxucw spinal canal stenosis with near-complete effacement of CSF. Facet arthropathy. Mild ligamentum flavum hypertrophy. Moderate right and mild/moderate left foraminal stenoses. Narrowing of bilateral lateral recesses. L4-5: Zcpncybc-vu-pcpsrv loss of disc height with diffuse disc bulging, asymmetric to the right. Small superimposed central and left paracentral as well as right lateral disc protrusions. Facet arthropathy. Mild ligamentum flavum hypertrophy. Kmhptgwi-yc-jzosaq spinal canal stenosis with virtually complete effacement of CSF. Dvnwheiq-ft-bpbvxd right and moderate left foraminal stenoses. Effacement of hzhje-wkkdxlc-dsmw-left lateral recesses L5-S1: Bulging with superimposed left mild diffuse disc foraminal and lateral disc protrusion contacting the exiting nerve root. Mild ligamentum flavum hypertrophy. No significant focal spinal canal stenosis. Facet arthropathy. Kcvfgwyd-ef-hbiukh left foraminal stenosis. Other: Focal narrowing of the spinal canal at T10-T11, not well evaluated as this is above the field of view of axial imaging. This may be related to a synovial cyst or facet arthropathy given the configuration on sagittal images. Additional cervicothoracic spondylosis on the intelligence consultant, not well evaluated. Mild ectasia of the abdominal aorta to 2.4 x 2.4 cm. Tiny presumed renal cysts, incompletely characterized. MRI/Spine Lumbar (Routine) IMPRESSION: 1. Multilevel spondylosis with variable both spinal canal and foraminal stenosesup to moderate/severe as detailed. 2. Additional description as above. Reading Location: [facility] CC: Dr. Jennifer Gordon MD; Dr. Rusty Dozier MD ~ It Program Auditor: Signed [facility] Spine Lumbar (Routine)on Spine Lumbar (Routine) Normal [facility] Cerv Spine 4 or 5 Viewson Cerv Spine 4 or 5 Views Normal [facility] Orthopedic Visit Reporton Orthopedic Visit Report Normal [facility] Emergency Department Summary on 01-01-2025 Emergency Department Summary Normal [facility] Neurology Visit Reporton Neurology Visit Report Normal [facility] CBC WITH AUTO DIFFERENTIALon 11-12-2024 AUTO NRBC 0.0 % Normal [facility] Comment on above: Performed By: #### L [id number] ####MH LAB [address] [place], [place] [address] Maurice Coello M.D. [id number] AUTO NRBC ABS COUNT 0.00 K/mcL Normal 0.00-0.00 [facility] Comment on above: Performed By: #### L [id number] ####MH LAB [address] [place], [place] [address] Maurice Coello M.D. [id number] BASOPHILS ABSOLUTE COUNT 0.06 K/mcL Normal 0.00-0.30 [facility] Comment on above: Performed By: #### L [id number] #### LAB [address] [address] Maurice Coello M.D. [id number] Basophils/100 WBC (Bld) 0.8 % Normal [facility] [place] [facility] Comment on above: Performed By: #### L [id number] #### LAB [address] [address] Maurice Coello M.D. [id number] Eosinophils (Bld) [#/Vol] 0.17 10*3/uL Normal 0.00-0.50 [facility] Comment on above: Performed By: #### L [id number] #### LAB [address] [address] Maurice Coello M.D. [id number] Eosinophils/100 WBC (Bld) 2.3 % Normal [facility] Comment on above: Performed By: #### L [id number] #### LAB [address] [address] Maurice Coello M.D. [id number] Erythrocyte distribution width (RBC) [Ratio] 14.1 % Normal 11.6-14.8 [facility] Comment on above: Performed By: #### L [id number] #### LAB [address] [address] Maurice Coello M.D. [id number] Hematocrit (Bld) [Volume fraction] 36.2 % Normal 36.0-46.0 [facility] Comment on above: Performed By: #### L [id number] #### LAB [address] [address] Maurice Coello M.D. [id number] Hemoglobin (Bld) [Mass/Vol] 11.0 g/dL Low 12.0-16.0 [facility] Comment on above: Performed By: #### L [id number] ####MH LAB [address] [address] Maurice Coello M.D. [id number] IG ABSOLUTE 0.03 K/mcL Normal 0.00-0.30 [facility] Comment on above: Performed By: #### L [id number] #### LAB [address] [address] Maurice Coello M.D. [id number] IG PERCENT 0.40 % Normal [facility] Comment on above: Result Comment: The IG parameter is the percentage of metamyelocytes, myelocytes and promyelocytes. An immature granulocyte count (IG) of 1% or more suggests the possibility of infection, an IG count of 3% is very likely related to an infection. Performed By: #### L [id number] #### LAB [address] [address] Maurice Coello M.D. [id number] Lymphocytes (Bld) [#/Vol] 1.60 10*3/uL Normal 0.90-4.00 [facility] Comment on above: Performed By: #### L [id number] #### LAB [address] [place] [address] Maurice Coello M.D. [id number] Lymphocytes/100 WBC (Bld) 21.3 % Normal [facility] Comment on above: Performed By: #### L [id number] #### LAB [address] [place] [address] Maurice Coello M.D. [id number] MCH (RBC) [Entitic mass] 26.3 pg Normal 26.0-34.0 [facility] Comment on above: Performed By: #### L [id number] #### LAB [address] [address] Maurice Coello M.D. [id number] MCV (RBC) [Entitic vol] 86.6 fL Normal 80.0-100.0 [facility] [place] [facility] Comment on above: Performed By: #### L [id number] #### LAB [address] [place] [address] Maurice Coello M.D. [id number] MEAN CORPUSCULAR HEMOGLOBIN CONC 30.4 g/dL Low 31.0-37.0 [facility] Comment on above: Performed By: #### L [id number] #### LAB [address] [address] Maurice Coello M.D. [id number] Monocytes (Bld) [#/Vol] 0.56 10*3/uL Normal 0.30-0.90 [facility] Comment on above: Performed By: #### L [id number] #### LAB [address] [address] Maurice Coello M.D. [id number] Monocytes/100 WBC (Bld) 7.5 % Normal [facility] [place] [facility] Comment on above: Performed By: #### L [id number] #### LAB [address] [address] Maurice Coello M.D. [id number] NEUTROPHILS ABSOLUTE COUNT 5.09 K/mcL Normal 1.70-7.00 [facility] Comment on above: Performed By: #### L [id number] #### LAB [address] [address] Maurice Coello M.D. [id number] Neutrophils/100 WBC (Bld) 67.7 % Normal [facility] Comment on above: Performed By: #### L [id number] #### LAB [address] [address] Maurice Coello M.D. [id number] Platelet mean volume (Bld) [Entitic vol] 10.5 fL Normal 9.4-12.4 [facility] Comment on above: Performed By: #### L [id number] #### LAB [address] [address] Maurice Coello M.D. [id number] Platelets (Bld) [#/Vol] 264 10*3/uL Normal 150-400 [facility] Comment on above: Performed By: #### L [id number] #### LAB [address] [address] Maurice Coello M.D. [id number] RBC (Bld) [#/Vol] 4.18 10*6/uL Normal 4.00-5.20 [facility] Comment on above: Performed By: #### L [id number] ####[facility] LAB [address] [address] Maurice Coello M.D. [id number] WBC (Bld) [#/Vol] 7.51 10*3/uL Normal 4.50-11.00 [facility] Comment on above: Performed By: #### L [id number] ####[facility] LAB [address] [address] Maurice Coello M.D. [id number] COMPREHENSIVE METABOLIC PANE Jett 11-12-2024 Albumin [Mass/Vol] 4.1 g/dL Normal 3.2-5.2 [facility] Comment on above: Order Comment: [facility] has implemented the eGFR calculation approach that does not have a coefficient for race that conforms to the NKF-ASN Task Force Recommendations. Performed By: #### 4 [id number] #### LAB [address] [address] Maurice Coello M.D. [id number] ALP [Catalytic activity/Vol] 72 U/L Normal 40-150 [facility] Comment on above: Order Comment: [facility] has implemented the eGFR calculation approach that does not have a coefficient for race that conforms to the NKF-ASN Task Force Recommendations. Performed By: #### 4 [id number] #### LAB [address] [address] Maurice Coello M.D. [id number] ALT [Catalytic activity/Vol] 16 U/L Normal 0-35 U/L [facility] Comment on above: Order Comment: [facility] has implemented the eGFR calculation approach that does not have a coefficient for race that conforms to the NKF-ASN Task Force Recommendations. Performed By: #### 4 6932 #### MH LAB [address] [address] Maurice Coello M.D. [id number] Anion gap [Moles/Vol] 14 mmol/L Normal 10-[address] [facility] Comment on above: Order Comment: [facility] has implemented the eGFR calculation approach that does not have a coefficient for race that conforms to the NKF-ASN Task Force Recommendations. Performed By: #### 4 6932 #### LAB [address] [address] Maurice Coello M.D. [id number] AST [Catalytic activity/Vol] 17 U/L Normal 0-35 U/L [facility] Comment on above: Order Comment: [facility] has implemented the eGFR calculation approach that does not have a coefficient for race that conforms to the NKF-ASN Task Force Recommendations. Performed By: #### 4 6932 #### LAB [address] [address] Maurice Coello M.D. [id number] BILIRUBIN TOTAL < Normal 0.0-1.3 [facility] Comment on above: Order Comment: [facility] has implemented the eGFR calculation approach that does not have a coefficient for race that conforms to the NKF-ASN Task Force Recommendations. Performed By: #### 4 6932 #### LAB [address] [address] Maurice Coello M.D. [id number] Calcium [Mass/Vol] 9.0 mg/dL Normal 8.4-10.2 [facility] Comment on above: Order Comment: [facility] has implemented the eGFR calculation approach that does not have a coefficient for race that conforms to the NKF-ASN Task Force Recommendations. Performed By: #### 4 6932 #### LAB [address] [address] Maurice Coello M.D. [id number] Chloride [Moles/Vol] 97 mmol/L Low 98-108 [facility] Comment on above: Order Comment: [facility] has implemented the eGFR calculation approach that does not have a coefficient for race that conforms to the NKF-ASN Task Force Recommendations. Performed By: #### 4 6932 #### LAB [address] [address] Maurice Coello M.D. [id number] Creatinine [Mass/Vol] 2.18 mg/dL High 0.60-1.[address] [facility] Comment on above: Order Comment: [facility] has implemented the eGFR calculation approach that does not have a coefficient for race that conforms to the NKF-ASN Task Force Recommendations. Performed By: #### 4 6935 #### LAB [address] [place], [place] [address] Maurice Coello M.D. [id number] EGFR 24 mL/min/1.73 m2 Low >=60 [facility] Comment on above: Order Comment: [facility] has implemented the eGFR calculation approach that does not have a coefficient for race that conforms to the NKF-ASN Task Force Recommendations. Result Comment: Ericka mated GFR was calculated using the 2020 CKD-EPI creatinine equation. Performed By: #### 4 6932 #### LAB [address] [place], [place] [address] Maurice Coello M.D. [id number] Glucose [Mass/Vol] 92 mg/dL Normal 65-99 [facility] Comment on above: Order Comment: [facility] has implemented the eGFR calculation approach that does not have a coefficient for race that conforms to the NKF-ASN Task Force Recommendations. Performed By: #### 4 [id number] #### LAB [address] [address] Maurice Coello M.D. [id number] HCO3 (Bld) [Moles/Vol] 28 mmol/L Normal 21-32 [facility] Comment on above: Order Comment: [facility] has implemented the eGFR calculation approach that does not have a coefficient for race that conforms to the NKF-ASN Task Force Recommendations. Performed By: #### 4 6936 #### LAB [address] [address] Maurice Coello M.D. [id number] Potassium [Moles/Vol] 5.1 mmol/L Normal 3.5-5.[address] [facility] Comment on above: Order Comment: [facility] has implemented the eGFR calculation approach that does not have a coefficient for race that conforms to the NKF-ASN Task Force Recommendations. Performed By: #### 4 6932 #### LAB [address] [place], [place] [address] Maurice Coello M.D. [id number] Protein [Mass/Vol] 7.2 g/dL Normal 6.0-8.0 [facility] Comment on above: Order Comment: [facility] has implemented the eGFR calculation approach that does not have a coefficient for race that conforms to the NKF-ASN Task Force Recommendations. Performed By: #### 4 6932 #### LAB [address] [place], [place] [address] Maurice Coello M.D. [id number] Sodium [Moles/Vol] 134 mmol/L Low 135-145 [facility] Comment on above: Order Comment: [facility] has implemented the eGFR calculation approach that does not have a coefficient for race that conforms to the NKF-ASN Task Force Recommendations. Performed By: #### 4 6932 #### LAB [address] [address] Maurice Coello M.D. [id number] Urea nitrogen [Mass/Vol] 38 mg/dL High 8-25 [facility] Comment on above: Order Comment: [facility] has implemented the eGFR calculation approach that does not have a coefficient for race that conforms to the NKF-ASN Task Force Recommendations. Performed By: #### 4 6932 #### LAB [address] [place], [place] [address] Maurice Coello M.D. [id number] Urea nitrogen/Creatinine [Mass ratio] 17.4 mg/mg Normal 10.0-20.0 [facility] Comment on above: Order Comment: [facility] has implemented the eGFR calculation approach that does not have a coefficient for race that conforms to the NKF-ASN Task Force Recommendations. Performed By: #### 4 6932 #### LAB [address] [place], [place] [address] Maurice Coello M.D. [id number] CT KIDNEY STONEon 11-12-2024 CT KIDNEY STONE [...] MonNov 12, 2024 7:20:28 PM EST Normal [facility] Comment on above: Order Comment: Injur y/Trauma or Illness?:Illness/OtherHow long have you had these symptoms (acute/chronic)?:AcuteReason for exam?:Right sided abdominal/flank pain x2 weeksType of Exam?:InitialAdditional signs and symptoms?:Denies N/V/D, CKD hx thus no IV contrast ED Prov Noteon 11-12-2024 ED Prov Note ED PROVIDER NOTE [facility] EMERGENCY DEPARTMENT NAME: Radha Shafer AGE: 64 y.o. : 1960 VISIT DATE: 11/12/2024 CSN: [id number] PCP: Erin, Physician Chief Complaint Patient presents [...] ALTEMEIER PROCEDURE; Surgeon: Jada Vargas MD; Location: [facility] Main OR; Service: Colorectal CARDIAC CATHETERIZATION N/A 09/26/2022 Procedure: Coronary Angiogram; Surgeon: Tor Long MD; Location: [employer]; Service: Cardiovascular CARDIOVASCULAR STRESS TEST CHOLECYSTECTOMY COLONOSCOPY with biopsies COLONOSCOPY N/A 02/17/2022 Procedure: COLONOSCOPY; Surgeon: Jada Vargas MD; Location: [facility] Endo; Service: Colorectal EGD N/A 08/15/2022 Procedure: ESOPHAGOGASTRODUODENOSC OPY WITH BIOPSY; Surgeon: Tyshawn Santos MD; Location: Endo; Service: Gastroenterology GALLBLADDER HC LEFT HEART CATH N/A 09/26/2022 Procedure: Left Heart Cath; Surgeon: Tor Long MD; Location: [employer]; Service: Cardiovascular HYSTERECTOMY JOINT REPLACEMENT Left knee ORTHOPEDIC SURGERY r wrist surgery, left ankle, right rotator cuff ROTATOR CUFF REPAIR Right SIGMOIDOSCOPY FLEXIBLE N/A 06/23/2022 Procedure: SIGMOIDOSCOPY FLEXIBLE WITH BIOPSY; Surgeon: Tyshawn Santos MD; Location: Endo; Service: Gastroenterology THYROIDECTOMY N/A 07/15/2015 Procedure: TOTAL THYROIDECTOMY; Surgeon: Lopez Alonso MD; Location: [facility] NEURO OR; Service: US ECHO TRANSTHORACIC [...] Socioeconomic History Marital status: Occupational History Occupation: [employer] 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 Normal [facility] LIPASEon 11-12-2024 Lipase [Catalytic activity/Vol] 66 U/L High 15-65 [facility] Comment on above: Performed By: #### 4 [id number] #### LAB [address] [address] Maurice Coello M.D. [id number] URINALYSISon 11-12-2024 BACTERIA, URINE Rare Abnormal None Seen [facility] Comment on above: Order Comment: Micro scopic examination is performed on all urinalysis samples and only positive findings are reported. The test for blood on the chemical analytic portion of urinalysis may also be positive due to hemoglobinuria and myoglobinuria and if red blood cells are present they are quantified by microscopic examination. Performed By: #### 4 6625 #### LAB [address] [address] Maurice Coello M.D. [id number] BILIRUBIN, URINE Negative Normal Negative [facility] Comment on above: Order Comment: Micro scopic examination is performed on all urinalysis samples and only positive findings are reported. The test for blood on the chemical analytic portion of urinalysis may also be positive due to hemoglobinuria and myoglobinuria and if red blood cells are present they are quantified by microscopic examination. Performed By: #### 4 6625 #### LAB [address] [address] Maurice Coello M.D. [id number] BLOOD, URINE Negative Normal Negative [facility] Comment on above: Order Comment: Micro scopic examination is performed on all urinalysis samples and only positive findings are reported. The test for blood on the chemical analytic portion of urinalysis may also be positive due to hemoglobinuria and myoglobinuria and if red blood cells are present they are quantified by microscopic examination. Performed By: #### 4 6625 #### LAB [address] [address] Maurice Coello M.D. [id number] Clarity (U) Clear Normal Clear [facility] Comment on above: Order Comment: Micro scopic examination is performed on all urinalysis samples and only positive findings are reported. The test for blood on the chemical analytic portion of urinalysis may also be positive due to hemoglobinuria and myoglobinuria and if red blood cells are present they are quantified by microscopic examination. Performed By: #### 4 6625 #### LAB [address] [id number] Maurice Coello M.D. [id number] Color (U) Colorless Normal Colorless, Yellow [facility] Comment on above: Order Comment: Micro scopic examination is performed on all urinalysis samples and only positive findings are reported. The test for blood on the chemical analytic portion of urinalysis may also be positive due to hemoglobinuria and myoglobinuria and if red blood cells are present they are quantified by microscopic examination. Performed By: #### 4 6625 #### LAB [address] [address] Maurice Coello M.D. [id number] Glucose Ql (U) Negative Normal Negative, >=1000 [facility] Comment on above: Order Comment: Micro scopic examination is performed on all urinalysis samples and only positive findings are reported. The test for blood on the chemical analytic portion of urinalysis may also be positive due to hemoglobinuria and myoglobinuria and if red blood cells are present they are quantified by microscopic examination. Performed By: #### 4 6625 #### LAB [address] [address] Maurice Coello M.D. [id number] Hyaline casts LM Ql (Urine sed) 0-2 Normal 0-2 [facility] Comment on above: Order Comment: Micro scopic examination is performed on all urinalysis samples and only positive findings are reported. The test for blood on the chemical analytic portion of urinalysis may also be positive due to hemoglobinuria and myoglobinuria and if red blood cells are present they are quantified by microscopic examination. Performed By: #### 4 6625 #### LAB [address] [address] Maurice Coello M.D. [id number] Ketones Ql (U) Negative Normal Negative [facility] Comment on above: Order Comment: Micro scopic examination is performed on all urinalysis samples and only positive findings are reported. The test for blood on the chemical analytic portion of urinalysis may also be positive due to hemoglobinuria and myoglobinuria and if red blood cells are present they are quantified by microscopic examination. Performed By: #### 4 6625 #### LAB [address] [id number] Maurice Coello M.D. [id number] Leukocyte esterase Test strip Ql (U) Trace Abnormal Negative [facility] Comment on above: Order Comment: Micro scopic examination is performed on all urinalysis samples and only positive findings are reported. The test for blood on the chemical analytic portion of urinalysis may also be positive due to hemoglobinuria and myoglobinuria and if red blood cells are present they are quantified by microscopic examination. Performed By: #### 4 6625 #### LAB [address] [address] Maurice Coello M.D. [id number] NITRITE, URINE Negative Normal Negative [facility] Comment on above: Order Comment: Micro scopic examination is performed on all urinalysis samples and only positive findings are reported. The test for blood on the chemical analytic portion of urinalysis may also be positive due to hemoglobinuria and myoglobinuria and if red blood cells are present they are quantified by microscopic examination. Performed By: #### 4 6625 #### LAB [address] [id number] Maurice Coello M.D. [id number] pH (U) 5.0 [pH] Normal 5.0-7.0 [facility] Comment on above: Order Comment: Micro scopic examination is performed on all urinalysis samples and only positive findings are reported. The test for blood on the chemical analytic portion of urinalysis may also be positive due to hemoglobinuria and myoglobinuria and if red blood cells are present they are quantified by microscopic examination. Performed By: #### 4 6625 #### LAB [address] [address] Maurice Coello M.D. [id number] PROTEIN, URINE Negative Normal Negative [facility] Comment on above: Order Comment: Micro scopic examination is performed on all urinalysis samples and only positive findings are reported. The test for blood on the chemical analytic portion of urinalysis may also be positive due to hemoglobinuria and myoglobinuria and if red blood cells are present they are quantified by microscopic examination. Performed By: #### 4 6625 #### LAB [address] [address] Maurice Coello M.D. [id number] RBC, URINE < Normal 0-3 [facility] Comment on above: Order Comment: Micro scopic examination is performed on all urinalysis samples and only positive findings are reported. The test for blood on the chemical analytic portion of urinalysis may also be positive due to hemoglobinuria and myoglobinuria and if red blood cells are present they are quantified by microscopic examination. Performed By: #### 4 6625 #### LAB [address] [address] Maurice Coello M.D. [id number] Specific gravity (U) [Rel density] 1.009 Normal 1.005-1.025 [facility] Comment on above: Order Comment: Micro scopic examination is performed on all urinalysis samples and only positive findings are reported. The test for blood on the chemical analytic portion of urinalysis may also be positive due to hemoglobinuria and myoglobinuria and if red blood cells are present they are quantified by microscopic examination. Performed By: #### 4 6625 #### LAB [address] [id number] Maurice Coello M.D. [id number] SQUAMOUS EPITHELIAL 3 /hpf Normal 0-4 [facility] [...] By: #### 4 6625 #### LAB [address] [address] Maurice Coello M.D. [id number] TRANSITIONAL EPITHELIAL 1 /hpf Normal 0-1 [facility] [place] [facility] Comment on above: Order Comment: Micro scopic examination is performed on all urinalysis samples and only positive findings are reported. The test for blood on the chemical analytic portion of urinalysis may also be positive due to hemoglobinuria and myoglobinuria and if red blood cells are present they are quantified by microscopic examination. Performed By: #### 4 6625 #### LAB [address], [place] [address] Maurice Coello M.D. [id number] UROBILINOGEN, URINE <2.0 Normal <2.0 [facility] [...] By: #### 4 6625 #### LAB [address] [place], [place] [address] Maurice Coello M.D. [id number] WBC LM.HPF (Urine sed) [#/Area] 2 /[HPF] Normal 0-5 [facility] Comment on above: Order Comment: Micro scopic examination is performed on all urinalysis samples and only positive findings are reported. The test for blood on the chemical analytic portion of urinalysis may also be positive due to hemoglobinuria and myoglobinuria and if red blood cells are present they are quantified by microscopic examination. Performed By: #### 4 6625 #### LAB [address] [place], [place] [address] Maurice Coello M.D. [id number] Internal Medicine Office Vis tyshawn 09-30-2024 Internal Medicine Office Visit Normal [facility] CBC Auto Differentialon 09-06 Basophils (Bld) [#/Vol] 0.01 10*3/uL [facility] Basophils/100 WBC (Bld) 0.1 % [facility] Eosinophils (Bld) [#/Vol] 0 10*3/uL [facility] Eosinophils/100 WBC (Bld) 0 % [facility] Erythrocyte distribution width (RBC) [Entitic vol] 14.5 % 11.6 - 14.8 % [facility] Hematocrit (Bld) [Volume fraction] 34.2 % Low 36.0 - 46.0 % [facility] Hemoglobin (Bld) [Mass/Vol] 10.2 g/dL Low 12.0 - 16.0 g/dL [facility] Immature granulocytes (Bld) [#/Vol] 0.08 10*3/uL [facility] Immature granulocytes/100 WBC (Bld) 0.7 % [facility] Comment on above: The IG parameter is the percentage of metamyelocytes, myelocytes and promyelocytes. An immature granulocyte count (IG) of 1% or more suggests the possibility of infection, an IG count of 3% is very likely related to an infection. Interpretation and review of laboratory results Abnormal [facility] Lymphocytes (Bld) [#/Vol] 0.72 10*3/uL Low [facility] Lymphocytes/100 WBC (Bld) 6.4 % [facility] MCH (RBC) [Entitic mass] 25.9 pg Low 26.0 - 34.0 pg [facility] MCHC (RBC) [Mass/Vol] 29.8 g/dL Low 31.0 - 37.0 g/dL [facility] MCV (RBC) [Entitic vol] 86.8 fL 80.0 - 100.0 fL [facility] Monocytes (Bld) [#/Vol] 0.32 10*3/uL [facility] Monocytes/100 WBC (Bld) 2.9 % [facility] Neutrophils (Bld) [#/Vol] 10.09 10*3/uL High [facility] Neutrophils/100 WBC (Bld) 89.9 % [facility] Nucleated RBC (Bld) [#/Vol] 0 10*3/uL [facility] Nucleated RBC/100 WBC (Bld) [Ratio] 0 % [facility] Platelet mean volume (Bld) [Entitic vol] 10.2 fL 9.4 - 12.4 fL [facility] Platelets (Bld) [#/Vol] 231 10*3/uL [facility] RBC (Bld) [#/Vol] 3.94 10*6/uL Low [facility]alth WBC (Bld) [#/Vol] 11.22 10*3/uL High [facility] CBC WITH AUTO DIFFERENTIALon 09-23-2024 AUTO NRBC 0.0 % Normal [facility] Comment on above: Performed By: #### L [id number] ####[facility] LAB [address], [place] [address] Maurice Coello M.D. [id number] AUTO NRBC ABS COUNT 0.00 K/mcL Normal 0.00-0.00 [facility] Comment on above: Performed By: #### L [id number] #### LAB [address] [address] Maurice Coello M.D. [id number] BASOPHILS ABSOLUTE COUNT 0.01 K/mcL Normal 0.00-0.30 [facility] Comment on above: Performed By: #### L [id number] #### LAB [address] [address] Maurice Coello M.D. [id number] Basophils/100 WBC (Bld) 0.1 % Normal [facility] [place] [facility] Comment on above: Performed By: #### L [id number] #### LAB [address] [address] Maurice Coello M.D. [id number] Eosinophils (Bld) [#/Vol] 0.00 10*3/uL Normal 0.00-0.50 [facility] Comment on above: Performed By: #### L [id number] #### LAB [address] [address] Maurice Coello M.D. [id number] Eosinophils/100 WBC (Bld) 0.0 % Normal [facility] Comment on above: Performed By: #### L [id number] #### LAB [address] [place] [address] Maurice Coello M.D. [id number] Erythrocyte distribution width (RBC) [Ratio] 14.5 % Normal 11.6-14.8 [facility] Comment on above: Performed By: #### L [id number] #### LAB [address] [place] [address] Maurice Coello M.D. [id number] Hematocrit (Bld) [Volume fraction] 34.2 % Low 36.0-46.0 [facility] Comment on above: Performed By: #### L [id number] #### LAB [address] [place] [address] Maurice Coello M.D. [id number] Hemoglobin (Bld) [Mass/Vol] 10.2 g/dL Low 12.0-16.0 [facility] Comment on above: Performed By: #### L [id number] #### LAB [address] [address] Maurice Coello M.D. [id number] IG ABSOLUTE 0.08 K/mcL Normal 0.00-0.30 [facility] Comment on above: Performed By: #### L [id number] #### LAB [address] [address] Maurice Coello M.D. [id number] IG PERCENT 0.70 % [facility] Comment on above: Result Comment: The IG parameter is the percentage of metamyelocytes, myelocytes and promyelocytes. An immature granulocyte count (IG) of 1% or more suggests the possibility of infection, an IG count of 3% is very likely related to an infection. Performed By: #### L [id number] #### LAB [address] [address] Maurice Coello M.D. [id number] Lymphocytes (Bld) [#/Vol] 0.72 10*3/uL Low 0.90-4.00 [facility] Comment on above: Performed By: #### L [id number] #### LAB [address] [address] Maurice Coello M.D. [id number] Lymphocytes/100 WBC (Bld) 6.4 % [facility] Comment on above: Performed By: #### L [id number] #### LAB [address] [address] Maurice Coello M.D. [id number] MCH (RBC) [Entitic mass] 25.9 pg Low 26.0-34.0 [facility] Comment on above: Performed By: #### L [id number] #### LAB [address] [address] Maurice Coello M.D. [id number] MCV (RBC) [Entitic vol] 86.8 fL Normal 80.0-100.0 [facility] [place] [facility] Comment on above: Performed By: #### L [id number] #### LAB [address] [address] Maurice Coello M.D. [id number] MEAN CORPUSCULAR HEMOGLOBIN CONC 29.8 g/dL Low 31.0-37.0 [facility] Comment on above: Performed By: #### L [id number] #### LAB [address] [address] Maurice Coello M.D. [id number] Monocytes (Bld) [#/Vol] 0.32 10*3/uL Normal 0.30-0.90 [facility] Comment on above: Performed By: #### L [id number] #### LAB [address] [address] Maurice Coello M.D. [id number] Monocytes/100 WBC (Bld) 2.9 % Normal [facility] [place] [facility] Comment on above: Performed By: #### L [id number] #### LAB [address] [address] Maurice Coello M.D. [id number] NEUTROPHILS ABSOLUTE COUNT 10.09 K/mcL High 1.70-7.00 [facility] Comment on above: Performed By: #### L [id number] #### LAB [address] [address] Maurice Coello M.D. [id number] Neutrophils/100 WBC (Bld) 89.9 % Normal [facility] Comment on above: Performed By: #### L [id number] #### LAB [address] [address] Maurice Coello M.D. [id number] Platelet mean volume (Bld) [Entitic vol] 10.2 fL Normal 9.4-12.4 [facility] Comment on above: Performed By: #### L [id number] #### LAB [address] [place] [address] Maurice Coello M.D. [id number] Platelets (Bld) [#/Vol] 231 10*3/uL Normal 150-400 [facility] Comment on above: Performed By: #### L [id number] ####MH LAB [address] [address] Maurice Coello M.D. [id number] RBC (Bld) [#/Vol] 3.94 10*6/uL Low 4.00-5.20 [facility] Comment on above: Performed By: #### L [id number] ####MH LAB [address] [address] Maurice Coello M.D. [id number] WBC (Bld) [#/Vol] 11.22 10*3/uL High 4.50-11.00 [facility] Comment on above: Performed By: #### L [id number] ####MH LAB [address] [address] Maurice Coello M.D. [id number] CK [Catalytic activity/Vol]o n 09-23-2024 Interpretation and review of laboratory results Abnormal [facility] COMPREHENSIVE METABOLIC PANE Jett 09-23-2024 Albumin [Mass/Vol] 3.7 g/dL Normal 3.2-5.2 [facility] Comment on above: Order Comment: Injur y/Trauma or Illness?:Illness/Other How long have you had these symptoms (acute/chronic)?:Chronic Reason for exam?:A-fib [facility] TO READ Type of Exam?:Initial Additional signs and symptoms?:n Performed By: #### 4 6126 ####[facility] LAB [address] [address] Maurice Coello M.D. [id number] ALP [Catalytic activity/Vol] 82 U/L Normal 40-150 [facility] Comment on above: Order Comment: Injur y/Trauma or Illness?:Illness/Other How long have you had these symptoms (acute/chronic)?:Chronic Reason for exam?:A-fib [facility] TO READ Type of Exam?:Initial Additional signs and symptoms?:n Performed By: #### 4 6126 ####[facility] LAB [address] [address] Maurice Coello M.D. [id number] ALT [Catalytic activity/Vol] 17 U/L Normal 0-35 U/L [facility] Comment on above: Order Comment: Injur y/Trauma or Illness?:Illness/Other How long have you had these symptoms (acute/chronic)?:Chronic Reason for exam?:A-fib [facility] TO READ Type of Exam?:Initial Additional signs and symptoms?:n Performed By: #### 4 6126 #### LAB [address] [address] Maurice Coello M.D. [id number] Anion gap [Moles/Vol] 13 mmol/L Normal 10-[address] [facility] Comment on above: Order Comment: Injur y/Trauma or Illness?:Illness/Other How long have you had these symptoms (acute/chronic)?:Chronic Reason for exam?:A-fib [facility] TO READ Type of Exam?:Initial Additional signs and symptoms?:n Performed By: #### 4 6126 #### LAB [address] [address] aMurice Coello M.D. [id number] AST [Catalytic activity/Vol] 42 U/L High 0-35 U/L [facility] Comment on above: Order Comment: Injur y/Trauma or Illness?:Illness/Other How long have you had these symptoms (acute/chronic)?:Chronic Reason for exam?:A-fib [facility] TO READ Type of Exam?:Initial Additional signs and symptoms?:n Performed By: #### 4 6126 #### LAB [address] [address] Maurice Coello M.D. [id number] BILIRUBIN TOTAL < Normal 0.0-1.3 [facility] Comment on above: Order Comment: Injur y/Trauma or Illness?:Illness/Other How long have you had these symptoms (acute/chronic)?:Chronic Reason for exam?:A-fib [facility] TO READ Type of Exam?:Initial Additional signs and symptoms?:n Performed By: #### 4 6126 #### LAB [address] [address] Maurice Coello M.D. [id number] Calcium [Mass/Vol] 9.0 mg/dL Normal 8.4-10.2 [facility] Comment on above: Order Comment: Injur y/Trauma or Illness?:Illness/Other How long have you had these symptoms (acute/chronic)?:Chronic Reason for exam?:A-fib [facility] TO READ Type of Exam?:Initial Additional signs and symptoms?:n Performed By: #### 4 6126 #### LAB [address] [address] Maurice Coello M.D. [id number] Chloride [Moles/Vol] 98 mmol/L Normal 98-108 [facility] Comment on above: Order Comment: Injur y/Trauma or Illness?:Illness/Other How long have you had these symptoms (acute/chronic)?:Chronic Reason for exam?:A-fib [facility] TO READ Type of Exam?:Initial Additional signs and symptoms?:n Performed By: #### 4 6126 #### LAB [address] [address] Maurice Coello M.D. [id number] Creatinine [Mass/Vol] 1.28 mg/dL High 0.60-1.[address] [facility] Comment on above: Order Comment: Injur y/Trauma or Illness?:Illness/Other How long have you had these symptoms (acute/chronic)?:Chronic Reason for exam?:A-fib [facility] TO READ Type of Exam?:Initial Additional signs and symptoms?:n Performed By: #### 4 6126 #### LAB [address] [address] Maurice Coello M.D. [id number] EGFR 46 mL/min/1.73 m2 Low >=60 [facility] Comment on above: Order Comment: Injur y/Trauma or Illness?:Illness/Other How long have you had these symptoms (acute/chronic)?:Chronic Reason for exam?:A-fib [facility] TO READ Type of Exam?:Initial Additional signs and symptoms?:n Result Comment: Ericka rodriguez GFR was calculated using the 2020 CKD-EPI creatinine equation. Performed By: #### 4 6126 #### LAB [address] [address] Maurice Coello M.D. [id number] Glucose [Mass/Vol] 121 mg/dL High 65-99 [facility] Comment on above: Order Comment: Injur y/Trauma or Illness?:Illness/Other How long have you had these symptoms (acute/chronic)?:Chronic Reason for exam?:A-fib [facility] TO READ Type of Exam?:Initial Additional signs and symptoms?:n Performed By: #### 4 6126 #### LAB [address] [address] Maurice Coello M.D. [id number] HCO3 (Bld) [Moles/Vol] 30 mmol/L Normal 21-32 [facility] Comment on above: Order Comment: Injur y/Trauma or Illness?:Illness/Other How long have you had these symptoms (acute/chronic)?:Chronic Reason for exam?:A-fib [facility] TO READ Type of Exam?:Initial Additional signs and symptoms?:n Performed By: #### 4 6126 #### LAB [address] [address] Maurice Coello M.D. [id number] Potassium [Moles/Vol] 4.8 mmol/L Normal 3.5-5.[address] [facility] Comment on above: Order Comment: Injur y/Trauma or Illness?:Illness/Other How long have you had these symptoms (acute/chronic)?:Chronic Reason for exam?:A-fib [facility] TO READ Type of Exam?:Initial Additional signs and symptoms?:n Performed By: #### 4 6126 #### LAB [address] [address] Maurice Coello M.D. [id number] Protein [Mass/Vol] 6.4 g/dL Normal 6.0-8.0 [facility] Comment on above: Order Comment: Injur y/Trauma or Illness?:Illness/Other How long have you had these symptoms (acute/chronic)?:Chronic Reason for exam?:A-fib [facility] TO READ Type of Exam?:Initial Additional signs and symptoms?:n Performed By: #### 4 6126 #### LAB [address] [address] Maurice Coello M.D. [id number] Sodium [Moles/Vol] 136 mmol/L Normal 135-145 [facility] Comment on above: Order Comment: Injur y/Trauma or Illness?:Illness/Other How long have you had these symptoms (acute/chronic)?:Chronic Reason for exam?:A-fib [facility] TO READ Type of Exam?:Initial Additional signs and symptoms?:n Performed By: #### 4 6126 #### LAB [address] [address] Maurice Coello M.D. [id number] Urea nitrogen [Mass/Vol] 24 mg/dL Normal 8-25 [facility] Comment on above: Order Comment: Injur y/Trauma or Illness?:Illness/Other How long have you had these symptoms (acute/chronic)?:Chronic Reason for exam?:A-fib [facility] TO READ Type of Exam?:Initial Additional signs and symptoms?:n Performed By: #### 4 6126 #### LAB [address] [address] Maurice Coello M.D. [id number] Urea nitrogen/Creatinine [Mass ratio] 18.8 mg/mg Normal 10.0-20.0 [facility] Comment on above: Order Comment: Injur y/Trauma or Illness?:Illness/Other How long have you had these symptoms (acute/chronic)?:Chronic Reason for exam?:A-fib [facility] TO READ Type of Exam?:Initial Additional signs and symptoms?:n Performed By: #### 4 6126 #### LAB [address] [place], [place] [address] Maurice Coello M.D. [id number] CPKon 09-23-2024 CPK 478 U/L High 40-170 [facility] Comment on above: Performed By: #### 4 8261 #### LAB [address] [place], [place] [address] Maurice Coello M.D. [id number] CPK NO MBon 09-23-2024 CK [Catalytic activity/Vol] 478 U/L High 40 - 170 U/L [facility] Comprehensive metabolic 2000 panelOrdered By: Rachel Hobson on 09-23-2024 Albumin [Mass/Vol] 3.7 g/dL 3.2 - 5.2 g/dL [facility] ALP [Catalytic activity/Vol] 82 U/L 40 - 150 U/L [facility] ALT [Catalytic activity/Vol] 17 U/L 0-35 U/L [facility] Anion gap [Moles/Vol] 13 mmol/L 10 - 2 0 mmol/L [facility] AST [Catalytic activity/Vol] 42 U/L High 0-35 U/L [facility] Bilirubin [Mass/Vol] mg/dL 0.0 - 1 .3 mg/dL [facility] Calcium [Mass/Vol] 9 mg/dL 8.4 - 10. 2 mg/dL [facility] Chloride [Moles/Vol] 98 mmol/L 98 - 10 8 mmol/L [facility] Creatinine [Mass/Vol] 1.28 mg/dL High 0.60 - 1.10 mg/dL [facility] GFR/1.73 sq M.predicted CKD-EPI (S/P/Bld) [Vol rate/Area] 46 Low - PINF [facility] Comment on above: Estimated GFR was ca lculated using the 2020 CKD-EPI creatinine equation. Glucose [Mass/Vol] 121 mg/dL High 65 - 99 mg/dL [facility] HCO3 [Moles/Vol] 30 mmol/L 21 - 32 mmol/L [facility] Interpretation and review of laboratory results Abnormal [facility] Potassium [Moles/Vol] 4.8 mmol/L 3.5 - 5.1 mmol/L [facility] Protein [Mass/Vol] 6.4 g/dL 6.0 - 8.0 g/dL [facility] Sodium [Moles/Vol] 136 mmol/L 135 - 145 mmol/L [facility] Urea nitrogen [Mass/Vol] 24 mg/dL 8 - 25 mg/dL [facility] Urea nitrogen/Creatinine [Mass ratio] 18.8 mg/mg 10.0 - 20.0 [facility] has implemented the eGFR calculation approach that does not have a coefficient for race that conforms to the NKF-ASN Task Force Recommendations. [facility] ECHOCARDIOGRAM COMPLETEon ECHOCARDIOGRAM COMPLETE Patient Info Name: RADHA SHAFER Age: 64 years : 1960 Gender: Female Ht: 165 cm Wt: 104 kg BSA: 2.23 m2 HR: 73 bpm BP: 153 / 74 mmHg Heart Rhythm: Sinus Rhythm Technical Quality: Fair Exam Date: 09/23/2024 2:31 PM Patient Status: Inpatient Ophthalmic Assistant: Martin Mace RCDS Exam Type: ECHOCARDIOGRAM COMPLETE Study Info Indications - Dyspnea R06.00 - Dyspnea, unspecified Referring Physician: ALEKSANDAR Mccoy; [id number] BMI: 38.11 kg/m2 Summary 1. Normal LV [...] Hypertension: Yes Diabetic Therapy: Oral Myocardial Infarction (TN): No Obesity: Yes Date of Last Tobacco [...] mmHg MV VTI 36 cm MV Decel [place] 408 cm/s2 MV PHT 67 ms MV [...] cm/s >=9.5 (more content not included)... Normal [facility] Echo completeOrdered By: Sravani Back on 09-23-2024 Aortic valve area 3.46904 cm [facility] Work Phone: AV mean gradient 3.41607 mmHg [facility] Work Phone: [phone] AV peak gradient 5.08465 mmHg [facility] Work Phone: EF [phone] % [facility] Work Phone: [phone] [facility] Work Phone: Echo completeon 09-23-2024 Patient Info Name: RADHA SHAFER Age: 64 years : 1960 Gender: Female Ht: 165 cm Wt: 104 kg BSA: 2.23 m2 HR: 73 bpm BP: 153 / 74 mmHg Heart Rhythm: Sinus Rhythm Technical Quality: Fair Exam Date: 09/23/2024 2:31 PM Patient Status: Inpatient Ophthalmic Assistant: Martin Mace RCDS Exam Type: ECHOCARDIOGRAM COMPLETE Study Info Indications - Dyspnea R06.00 - Dyspnea, unspecified Referring Physician: ALEKSANDAR Mccoy; [id number] BMI: 38.11 kg/m2 Summary 1. Normal LV [...] Hypertension: Yes Diabetic Therapy: Oral Myocardial Infarction ([place]): No Obesity: Yes Date of Last Tobacco [...] Date: 09/23/2024 2:31 PM Patient Status: Inpatient Ophthalmic Assistant: Martin Mace RCDS Exam Type: ECHOCARDIOGRAM COMPLETE Study Info Indications - Dyspnea R06.00 - Dyspnea, unspecified Referring Physician: ALEKSANDAR Mccoy; [id number] BMI: 38.11 kg/m2 Summary 1. Normal LV [...] Hypertension: Yes Diabetic Therapy: Oral Myocardial Infarction ([place]): No Obesity: Yes Date of Last Tobacco [...] mmHg MV VTI 36 cm MV Decel [place] 408 cm/s2 MV PHT 67 ms MV [...] Annular TDI ------ (more content not included)... [facility] MAGNESIUM LEVELon 09-23-2024 Magnesium [Mass/Vol] 2.0 mg/dL Normal 1.6-2.4 [facility] Comment on above: Performed By: #### 4 6109 #### LAB [address], [place] [address] Maurice Coello M.D. [id number] Magnesium Levelon 09-23-2024 Magnesium [Mass/Vol] 2 mg/dL 1.6 - 2 .4 mg/dL [facility] Magnesium [Mass/Vol]on 09-23 Interpretation and review of laboratory results Normal [facility] NT PRO BNPon 09-23-2024 Natriuretic peptide B (Bld) [Mass/Vol] 2680 pg/mL High 0-300 [facility] Comment on above: Order Comment: Injur y/Trauma or Illness?:Illness/Other How long have you had these symptoms (acute/chronic)?:Chronic Reason for exam?:A-fib [facility] TO READ Type of Exam?:Initial Additional signs and symptoms?:n Performed By: #### 4 7395 #### LAB [address] [place], [place] [address] Maurice Coello M.D. [id number] NT Pro BNPon 09-23-2024 Natriuretic peptide.B prohormone N-Terminal [Mass/Vol] 2680 pg/mL High 0 - 300 pg/mL [facility] Natriuretic peptide.B prohor curly N-Terminal [Mass/Vol]on 09-23-2024 Interpretation and review of laboratory results Abnormal [facility] Pride Study Cut-offs Rule In: < /= 50 Years >450 pg/mL 51 Years - 75 Years >900 pg/mL 76 Years - 99 Years >1800 pg/mL Rule Out: All patients <300 pg/mL [facility] No Panel InformationOrdered By: Rachel Hobson on 09-23-2024 [facility] BASIC METABOLIC PANELon 09-06 Anion gap [Moles/Vol] 16 mmol/L Normal 10-[address] [facility] Comment on above: Order Comment: Injur y/Trauma or Illness?:Illness/Other How long have you had these symptoms (acute/chronic)?:Acute Reason for exam?:sob. Hx of COPD History of cancer?:unknown Surgeries, chemotherapy, or radiation?:cholecystectomy, hysterectomy, oophrectomy, left knee replacement Type of Exam?:Initial Additional signs and symptoms?:. Performed By: #### 4 6124 #### LAB [address] [place], [place] [address] Maurice Coello M.D. [id number] Calcium [Mass/Vol] 8.3 mg/dL Low 8.4-10.2 [facility] Comment on above: Order Comment: Injur y/Trauma or Illness?:Illness/Other How long have you had these symptoms (acute/chronic)?:Acute Reason for exam?:sob. Hx of COPD History of cancer?:unknown Surgeries, chemotherapy, or radiation?:cholecystectomy, hysterectomy, oophrectomy, left knee replacement Type of Exam?:Initial Additional signs and symptoms?:. Performed By: #### 4 6183 #### LAB [address] [address] Maurice Coello M.D. [id number] Chloride [Moles/Vol] 93 mmol/L Low 98-108 [facility] Comment on above: Order Comment: Injur y/Trauma or Illness?:Illness/Other How long have you had these symptoms (acute/chronic)?:Acute Reason for exam?:sob. Hx of COPD History of cancer?:unknown Surgeries, chemotherapy, or radiation?:cholecystectomy, hysterectomy, oophrectomy, left knee replacement Type of Exam?:Initial Additional signs and symptoms?:. Performed By: #### 4 6124 #### LAB [address] [address] Maurice Coello M.D. [id number] Creatinine [Mass/Vol] 1.75 mg/dL High 0.60-1.[address] [facility] Comment on above: Order Comment: Injur y/Trauma or Illness?:Illness/Other How long have you had these symptoms (acute/chronic)?:Acute Reason for exam?:sob. Hx of COPD History of cancer?:unknown Surgeries, chemotherapy, or radiation?:cholecystectomy, hysterectomy, oophrectomy, left knee replacement Type of Exam?:Initial Additional signs and symptoms?:. Performed By: #### 4 6195 #### LAB [address] [address] Maurice Coello M.D. [id number] EGFR 32 mL/min/1.73 m2 Low >=60 [facility] Comment on above: Order Comment: Injur y/Trauma or Illness?:Illness/Other How long have you had these symptoms (acute/chronic)?:Acute Reason for exam?:sob. Hx of COPD History of cancer?:unknown Surgeries, chemotherapy, or radiation?:cholecystectomy, hysterectomy, oophrectomy, left knee replacement Type of Exam?:Initial Additional signs and symptoms?:. Result Comment: Ericka mated GFR was calculated using the 2020 CKD-EPI creatinine equation. Performed By: #### 4 6155 #### LAB [address] [address] Maurice Coello M.D. [id number] Glucose [Mass/Vol] 272 mg/dL High 65-99 [facility] Comment on above: Order Comment: Injur y/Trauma or Illness?:Illness/Other How long have you had these symptoms (acute/chronic)?:Acute Reason for exam?:sob. Hx of COPD History of cancer?:unknown Surgeries, chemotherapy, or radiation?:cholecystectomy, hysterectomy, oophrectomy, left knee replacement Type of Exam?:Initial Additional signs and symptoms?:. Performed By: #### 4 6124 #### LAB [address] [address] Maurice Coello M.D. [id number] HCO3 (Bld) [Moles/Vol] 29 mmol/L Normal 21-32 [facility] Comment on above: Order Comment: Injur y/Trauma or Illness?:Illness/Other How long have you had these symptoms (acute/chronic)?:Acute Reason for exam?:sob. Hx of COPD History of cancer?:unknown Surgeries, chemotherapy, or radiation?:cholecystectomy, hysterectomy, oophrectomy, left knee replacement Type of Exam?:Initial Additional signs and symptoms?:. Performed By: #### 4 6167 #### LAB [address] [address] Maurice Coello M.D. [id number] Potassium [Moles/Vol] 5.0 mmol/L Normal 3.5-5.[address] [facility] Comment on above: Order Comment: Injur y/Trauma or Illness?:Illness/Other How long have you had these symptoms (acute/chronic)?:Acute Reason for exam?:sob. Hx of COPD History of cancer?:unknown Surgeries, chemotherapy, or radiation?:cholecystectomy, hysterectomy, oophrectomy, left knee replacement Type of Exam?:Initial Additional signs and symptoms?:. Performed By: #### 4 6186 #### LAB [address] [address] Maurice Coello M.D. [id number] Sodium [Moles/Vol] 133 mmol/L Low 135-145 [facility] Comment on above: Order Comment: Injur y/Trauma or Illness?:Illness/Other How long have you had these symptoms (acute/chronic)?:Acute Reason for exam?:sob. Hx of COPD History of cancer?:unknown Surgeries, chemotherapy, or radiation?:cholecystectomy, hysterectomy, oophrectomy, left knee replacement Type of Exam?:Initial Additional signs and symptoms?:. Performed By: #### 4 6112 #### LAB [address] [address] Maurice Coello M.D. [id number] Urea nitrogen [Mass/Vol] 31 mg/dL High 06-30 [facility] Comment on above: Order Comment: Injur y/Trauma or Illness?:Illness/Other How long have you had these symptoms (acute/chronic)?:Acute Reason for exam?:sob. Hx of COPD History of cancer?:unknown Surgeries, chemotherapy, or radiation?:cholecystectomy, hysterectomy, oophrectomy, left knee replacement Type of Exam?:Initial Additional signs and symptoms?:. Performed By: #### 4 6153 #### LAB [address] [address] Maurice Coello M.D. [id number] Urea nitrogen/Creatinine [Mass ratio] 17.7 mg/mg Normal 10.0-20.0 [facility] Comment on above: Order Comment: Injur y/Trauma or Illness?:Illness/Other How long have you had these symptoms (acute/chronic)?:Acute Reason for exam?:sob. Hx of COPD History of cancer?:unknown Surgeries, chemotherapy, or radiation?:cholecystectomy, hysterectomy, oophrectomy, left knee replacement Type of Exam?:Initial Additional signs and symptoms?:. Performed By: #### 4 6124 #### LAB [address] [address] Maurice Coello M.D. [id number] Bacteria identified Aer cx N om (Sput)Ordered By: Nahum Coello on 09-22-2024 Microscopic observation Gram stain Nom (Sput) Specimen screened and found unsatisfactory for culture. [facility] Basic metabolic 2000 panelon 09-22-2024 Anion gap [Moles/Vol] 16 mmol/L 10 - 2 0 mmol/L [facility] Calcium [Mass/Vol] 8.3 mg/dL Low 8.4 - 10. 2 mg/dL [facility] Chloride [Moles/Vol] 93 mmol/L Low 98 - 10 8 mmol/L [facility] Creatinine [Mass/Vol] 1.75 mg/dL High 0.60 - 1.10 mg/dL [facility] GFR/1.73 sq M.predicted CKD-EPI (S/P/Bld) [Vol rate/Area] 32 Low - PINF [facility] Comment on above: Estimated GFR was ca lculated using the 2020 CKD-EPI creatinine equation. Glucose [Mass/Vol] 272 mg/dL High 65 - 99 mg/dL [facility] HCO3 [Moles/Vol] 29 mmol/L 21 - 32 mmol/L [facility] Potassium [Moles/Vol] 5 mmol/L 3.5 - 5.1 mmol/L [facility] Sodium [Moles/Vol] 133 mmol/L Low 135 - 145 mmol/L [facility] Urea nitrogen [Mass/Vol] 31 mg/dL High 8 - 25 mg/dL [facility] Urea nitrogen/Creatinine [Mass ratio] 17.7 mg/mg 10.0 - 20.0 [facility] has implemented the eGFR calculation approach that does not have a coefficient for race that conforms to the NKF-ASN Task Force Recommendations. [facility] CBCon 09-22-2024 AUTO NRBC 0.0 % Normal [facility] Comment on above: Performed By: #### 4 6907 #### MH LAB [address] [address] Maurice Coello M.D. [id number] AUTO NRBC ABS COUNT 0.00 K/mcL Normal 0.00-0.00 [facility] Comment on above: Performed By: #### 4 6987 #### MH LAB [address] [id number] Maurice Coello M.D. [id number] Erythrocyte distribution width (RBC) [Ratio] 14.3 % Normal 11.6-14.8 [facility] Comment on above: Performed By: #### 4 6933 #### LAB [address] [id number] Maurice Coello M.D. [id number] Hematocrit (Bld) [Volume fraction] 35.1 % Low 36.0-46.0 [facility] Comment on above: Performed By: #### 4 6932 #### LAB [address] [address] Maurice Coello M.D. [id number] Hemoglobin (Bld) [Mass/Vol] 10.3 g/dL Low 12.0-16.0 [facility] Comment on above: Performed By: #### 4 6932 #### LAB [address] [address] Maurice Coello M.D. [id number] MCH (RBC) [Entitic mass] 26.3 pg Normal 26.0-34.0 [facility] Comment on above: Performed By: #### 4 6932 #### LAB [address] [address] Maurice Coello M.D. [id number] MCV (RBC) [Entitic vol] 89.5 fL Normal 80.0-100.0 [facility] [place] [facility] Comment on above: Performed By: #### 4 4899 #### LAB [address] [address] Maurice Coello M.D. [id number] MEAN CORPUSCULAR HEMOGLOBIN CONC 29.3 g/dL Low 31.0-37.0 [facility] Comment on above: Performed By: #### 4 6932 #### LAB [address] [address] Maurice Coello M.D. [id number] Platelet mean volume (Bld) [Entitic vol] 10.3 fL Normal 9.4-12.4 [facility] Comment on above: Performed By: #### 4 1686 #### LAB [address] [address] Maurice Coello M.D. [id number] Platelets (Bld) [#/Vol] 194 10*3/uL Normal 150-400 [facility] Comment on above: Performed By: #### 4 8892 #### LAB [address] [address] Maurice Coello M.D. [id number] RBC (Bld) [#/Vol] 3.92 10*6/uL Low 4.00-5.20 [facility] Comment on above: Performed By: #### 4 6932 #### LAB [address] [place], [place] [address] Maurice Coello M.D. [id number] WBC (Bld) [#/Vol] 7.07 10*3/uL Normal 4.50-11.00 [facility] Comment on above: Performed By: #### 4 6932 #### LAB [address] [place], [place] [address] Maurice Coello M.D. [id number] CBC panel Auto (Bld)on 09-22 Erythrocyte distribution width (RBC) [Entitic vol] 14.3 % 11.6 - 14.8 % [facility] Hematocrit (Bld) [Volume fraction] 35.1 % Low 36.0 - 46.0 % [facility] Hemoglobin (Bld) [Mass/Vol] 10.3 g/dL Low 12.0 - 16.0 g/dL [facility] Interpretation and review of laboratory results Abnormal [facility] MCH (RBC) [Entitic mass] 26.3 pg 26.0 - 34.0 pg [facility] MCHC (RBC) [Mass/Vol] 29.3 g/dL Low 31.0 - 37.0 g/dL [facility] MCV (RBC) [Entitic vol] 89.5 fL 80.0 - 100.0 fL [facility] Nucleated RBC (Bld) [#/Vol] 0 10*3/uL [facility] Nucleated RBC/100 WBC (Bld) [Ratio] 0 % [facility] Platelet mean volume (Bld) [Entitic vol] 10.3 fL 9.4 - 12.4 fL [facility] Platelets (Bld) [#/Vol] 194 10*3/uL [facility] RBC (Bld) [#/Vol] 3.92 10*6/uL Low [facility] WBC (Bld) [#/Vol] 7.07 10*3/uL [facility] [facility] EKGon 09-22-2024 [facility] LEGIONELLA ANTIGEN, URINEon 09-22-2024 LEGIONELLA ANTIGEN, URINE LEGIONELLA ANTIGEN Negative for Legionella antigen COMMENT: Results may be affected if patient is on diuretics. INTERPRETATION OF RESULTS: Test detects Legionella pneumophilia serogroup 1 antigens in urine. Legionnaires disease cannot be ruled out since other serogroups and species may also cause disease. Normal [facility] Comment on above: Performed By: #### 4 [id number] #### LAB [address] [place], [place] [address] Maurice Coello M.D. [id number] Legionella Antigen, UrineOrd ered By: Malgorzata Carlton on 09-22-2024 Interpretation and review of laboratory results Normal [facility] L. pneumophila Ag Ql (U) Negative Negative for Legionella antigen [facility] Comment on above: COMMENT: Results may be affected if patient is on diuretics. INTERPRETATION OF RESULTS: Test detects Legionella pneumophilia serogroup 1 antigens in urine. Legionnaires disease cannot be ruled out since other serogroups and species may also cause disease. [facility] M. pneumoniae IgM Ql (S)Orde red By: Vane Garzon on 09-22-2024 Interpretation and review of laboratory results Normal [facility] M. pneumoniae IgM IA Qn (S) Non-Reactive for Mycoplasma pneumoniae IgM Non-Reactive for Mycoplasma pneumoniae IgM [facility] Interpretation Non-Reactive: Absence of IgM to Mycoplasma pneumoniae or levels below the limit of the assay. [facility] MAGNESIUM LEVELon 09-22-2024 Magnesium [Mass/Vol] 1.9 mg/dL Normal 1.6-2.4 [facility] Comment on above: Performed By: #### 4 [id number] #### LAB [address] [place], [place] [address] Maurice Coello M.D. [id number] MRSA DNA Amplified Probeon 1 11-22-2023 MRSA DNA CATRINA+probe Ql (Unsp spec) Negative Not Detected, MRSA NEGATIVE [facility] MRSA DNA CATRINA+probe Ql (Unsp spec)on 09-22-2024 Interpretation and review of laboratory results Normal [facility] Magnesiumon 09-22-2024 Magnesium [Mass/Vol] 1.9 mg/dL 1.6 - 2 .4 mg/dL [facility] Magnesium [Mass/Vol]on 09-22 Interpretation and review of laboratory results Normal [facility] No Panel Informationon 09-22 Interpretation and review of laboratory results Abnormal [facility] PHOSPHORUSon 09-22-2024 Phosphate [Mass/Vol] 4.3 mg/dL High 2.8-4.1 [facility] Comment on above: Performed By: #### 4 [id number] #### LAB [address] [place], [place] [address] Maurice Coello M.D. [id number] Phosphoruson 09-22-2024 Phosphate [Mass/Vol] 4.3 mg/dL High 2.8 - 4 .1 mg/dL [facility] S. pneumoniae Urine Antigeno n 09-22-2024 Interpretation and review of laboratory results Normal [facility] S. pneumoniae Ag Ql (U) Negative Pres umptive Negative for Pneumococcal pneumoniae [facility] Comment on above: A negative result cristina ggests no current or recent pneumococcal infection. A negative result does not rule out Streptococcus pneumoniae infection since the antigen present in the sample may be below the detection limit of the test. [facility] S.PNEUMONIAE URINE ANTIGENon 09-22-2024 S.PNEUMONIAE URINE ANTIGEN STREP PNEUMONIAE ANTIGEN, URINE Presumptive Negative for Pneumococcal pneumoniae A negative result suggests no current or recent pneumococcal infection. A negative result does not rule out Streptococcus pneumoniae infection since the antigen present in the sample may be below the detection limit of the test. [facility] Comment on above: Performed By: #### 4 7222 #### LAB [address] [place], [place] [address] Maurice Coello M.D. [id number] SPUTUM AEROBIC CULTUREon SPUTUM AEROBIC CULTURE RESPIRATORY CULTU RE See Gram Stain Result GRAM STAIN RESULT Specimen screened and found unsatisfactory for culture. [facility] Comment on above: Performed By: #### 4 [id number] ####[facility] [place] [address] Arnel Marie M.D. [id number] Sputum Aerobic CultureOrdere d By: Nahum Coello on 09-22-2024 Bacteria identified Aer cx Nom (Sput) See Gram Stain Result [facility] TROPONINon 09-22-2024 TROPONIN T DELTA CHANGE INTERPRETATION Probable non-acute cardiac injury or late presentation of acute injury. [facility] Comment on above: Performed By: #### 4 [id number] #### LAB [address] [place] [address] Maurice Coello M.D. [id number] TROPONIN T DELTA DIFFERENCE -5 ng/L Normal < = -/+ 7 change [facility] Comment on above: Performed By: #### 4 [id number] #### LAB [address] [place], [place] [address] Maurice Coello M.D. [id number] TROPONIN T NG/L 15 ng/L Off scale high <=14 [facility] Comment on above: Performed By: #### 4 [id number] #### LAB [address] [place], [place] [address] Maurice Coello M.D. [id number] TROPONIN T DELTA CHANGE INTERPRETATION Probable non-acute cardiac injury or late presentation of acute injury. Normal [facility] Comment on above: Performed By: #### 4 [id number] #### LAB [address] [place], [place] [address] Maurice Coello M.D. [id number] TROPONIN T DELTA DIFFERENCE -5 ng/L Normal < = -/+ 7 change [facility] Comment on above: Performed By: #### 4 [id number] #### LAB [address] [place], [place] [address] Maurice Coello M.D. [id number] TROPONIN T NG/L 15 ng/L Off scale high <=14 [facility] Comment on above: Performed By: #### 4 [id number] #### LAB [address] [place], [place] [address] Maurice Coello M.D. [id number] Troponin x 2 (Now and Repeat in 3 hours)on 09-22-2024 Delta Difference Troponin T -5 ng/L < = -/+ 7 change [facility] Inter Troponin T Delta Change Probable non-acute cardiac injury or late presentation of acute injury. [facility] Interpretation and review of laboratory results Abnormal [facility] Troponin T 15 ng/L Critically high NINF - 14 ng/L [facility] Delta Difference Troponin T -5 ng/L < = -/+ 7 change [facility] Inter Troponin T Delta Change Probable non-acute cardiac injury or late presentation of acute injury. [facility] Interpretation and review of laboratory results Abnormal [facility] Troponin T 15 ng/L Critically high NINF - 14 ng/L [facility] BLOOD CULTURE AEROBIC/ANAERO BICon 09-21-2024 BLOOD CULTURE AEROBIC/ANAEROBIC BLOOD CULTURE No Growth after 5 days Normal [facility] Comment on above: Performed By: #### 4 [id number] #### LAB [address] [place], [place] [address] Maurice Coello M.D. [id number] CBC Auto Differentialon 09-06 Basophils (Bld) [#/Vol] 0.07 10*3/uL [facility] Basophils/100 WBC (Bld) 0.7 % [facility] Eosinophils (Bld) [#/Vol] 0.14 10*3/uL [facility] Eosinophils/100 WBC (Bld) 1.5 % [facility] Erythrocyte distribution width (RBC) [Entitic vol] 14.4 % 11.6 - 14.8 % [facility] Hematocrit (Bld) [Volume fraction] 36.7 % 36.0 - 46.0 % [facility] Hemoglobin (Bld) [Mass/Vol] 10.8 g/dL Low 12.0 - 16.0 g/dL [facility] Immature granulocytes (Bld) [#/Vol] 0.03 10*3/uL [facility] Immature granulocytes/100 WBC (Bld) 0.3 % [facility] Comment on above: The IG parameter is the percentage of metamyelocytes, myelocytes and promyelocytes. An immature granulocyte count (IG) of 1% or more suggests the possibility of infection, an IG count of 3% is very likely related to an infection. Interpretation and review of laboratory results Abnormal [facility] Lymphocytes (Bld) [#/Vol] 1.21 10*3/uL [facility] Lymphocytes/100 WBC (Bld) 12.8 % [facility] MCH (RBC) [Entitic mass] 26.3 pg 26.0 - 34.0 pg [facility] MCHC (RBC) [Mass/Vol] 29.4 g/dL Low 31.0 - 37.0 g/dL [facility] MCV (RBC) [Entitic vol] 89.5 fL 80.0 - 100.0 fL [facility] Monocytes (Bld) [#/Vol] 0.62 10*3/uL [facility] Monocytes/100 WBC (Bld) 6.6 % [facility] Neutrophils (Bld) [#/Vol] 7.37 10*3/uL High [facility] Neutrophils/100 WBC (Bld) 78.1 % [facility] Nucleated RBC (Bld) [#/Vol] 0 10*3/uL [facility] Nucleated RBC/100 WBC (Bld) [Ratio] 0 % [facility] Platelet mean volume (Bld) [Entitic vol] 10 fL 9.4 - 12.4 fL [facility] Platelets (Bld) [#/Vol] 249 10*3/uL [facility] RBC (Bld) [#/Vol] 4.1 10*6/uL [facility] [place] [facility] alth WBC (Bld) [#/Vol] 9.44 10*3/uL [facility] CBC WITH AUTO DIFFERENTIALon 09-21-2024 AUTO NRBC 0.0 % Normal [facility] Comment on above: Performed By: #### L [id number] #### LAB [address] [place] [address] Maurice Coello M.D. [id number] AUTO NRBC ABS COUNT 0.00 K/mcL Normal 0.00-0.00 [facility] Comment on above: Performed By: #### L [id number] #### LAB [address] [place] [address] Maurice Coello M.D. [id number] BASOPHILS ABSOLUTE COUNT 0.07 K/mcL Normal 0.00-0.30 [facility] Comment on above: Performed By: #### L [id number] #### LAB [address] [place] [address] Maurice Coello M.D. [id number] Basophils/100 WBC (Bld) 0.7 % Normal [facility] [place] [facility] Comment on above: Performed By: #### L [id number] #### LAB [address] [place] [address] Maurice Coello M.D. [id number] Eosinophils (Bld) [#/Vol] 0.14 10*3/uL Normal 0.00-0.50 [facility] Comment on above: Performed By: #### L [id number] #### LAB [address] [place] [address] Maurice Coello M.D. [id number] Eosinophils/100 WBC (Bld) 1.5 % Normal [facility] Comment on above: Performed By: #### L [id number] #### LAB [address] [place] [address] Maurice Coello M.D. [id number] Erythrocyte distribution width (RBC) [Ratio] 14.4 % Normal 11.6-14.8 [facility] Comment on above: Performed By: #### L [id number] #### LAB [address] [place] [address] Maurice Coello M.D. [id number] Hematocrit (Bld) [Volume fraction] 36.7 % Normal 36.0-46.0 [facility] Comment on above: Performed By: #### L [id number] #### LAB [address] [place] [address] Maurice Coello M.D. [id number] Hemoglobin (Bld) [Mass/Vol] 10.8 g/dL Low 12.0-16.0 [facility] Comment on above: Performed By: #### L [id number] #### LAB [address] [place] [address] Maurice Coello M.D. [id number] IG ABSOLUTE 0.03 K/mcL Normal 0.00-0.30 [facility] Comment on above: Performed By: #### L [id number] #### LAB [address] [place] [address] Maurice Coello M.D. [id number] IG PERCENT 0.30 % Normal [facility] Comment on above: Result Comment: The IG parameter is the percentage of metamyelocytes, myelocytes and promyelocytes. An immature granulocyte count (IG) of 1% or more suggests the possibility of infection, an IG count of 3% is very likely related to an infection. Performed By: #### L [id number] #### LAB [address] [place] [address] Maurice Coello M.D. [id number] Lymphocytes (Bld) [#/Vol] 1.21 10*3/uL Normal 0.90-4.00 [facility] Comment on above: Performed By: #### L [id number] #### LAB [address] [place] [address] Maurice Coello M.D. [id number] Lymphocytes/100 WBC (Bld) 12.8 % Normal [facility] Comment on above: Performed By: #### L [id number] #### LAB [address] [place] [address] Maurice Coello M.D. [id number] MCH (RBC) [Entitic mass] 26.3 pg Normal 26.0-34.0 [facility] Comment on above: Performed By: #### L [id number] #### LAB [address] [place] [address] Maurice Coello M.D. [id number] MCV (RBC) [Entitic vol] 89.5 fL Normal 80.0-100.0 [facility] [place] [facility] Comment on above: Performed By: #### L [id number] #### LAB [address] [place] [address] Maurice Coello M.D. [id number] MEAN CORPUSCULAR HEMOGLOBIN CONC 29.4 g/dL Low 31.0-37.0 [facility] Comment on above: Performed By: #### L [id number] #### LAB [address] [place] [address] Maurice Coello M.D. [id number] Monocytes (Bld) [#/Vol] 0.62 10*3/uL Normal 0.30-0.90 [facility] Comment on above: Performed By: #### L [id number] #### LAB [address] [place] [address] Maurice Coello M.D. [id number] Monocytes/100 WBC (Bld) 6.6 % Normal [facility] [place] [facility] Comment on above: Performed By: #### L [id number] #### LAB [address] [place] [address] Maurice Coello M.D. [id number] NEUTROPHILS ABSOLUTE COUNT 7.37 K/mcL High 1.70-7.00 [facility] Comment on above: Performed By: #### L [id number] ####[facility] LAB [address] [place] [address] Maurice Coello M.D. [id number] Neutrophils/100 WBC (Bld) 78.1 % Normal [facility] Comment on above: Performed By: #### L [id number] ####[facility] LAB [address] [place] [address] Maurice Coello M.D. [id number] Platelet mean volume (Bld) [Entitic vol] 10.0 fL Normal 9.4-12.4 [facility] Comment on above: Performed By: #### L [id number] ####[facility] LAB [address] [place] [address] Maurice Coello M.D. [id number] Platelets (Bld) [#/Vol] 249 10*3/uL Normal 150-400 [facility] Comment on above: Performed By: #### L [id number] ####[facility] LAB [address] [place] [address] Maurice Coello M.D. [id number] RBC (Bld) [#/Vol] 4.10 10*6/uL Normal 4.00-5.20 [facility] Comment on above: Performed By: #### L [id number] ####[facility] LAB [address] [place] [address] Maurice Coello M.D. [id number] WBC (Bld) [#/Vol] 9.44 10*3/uL Normal 4.50-11.00 [facility] Comment on above: Performed By: #### L [id number] ####[facility] LAB [address] [place] [address] Maurice Coello M.D. [id number] CK [Catalytic activity/Vol]o n 09-21-2024 Interpretation and review of laboratory results Abnormal [facility] METABOLIC PANE Jett 09-21-2024 Albumin [Mass/Vol] 4.1 g/dL Normal 3.2-5.2 [facility] Comment on above: Order Comment: Injur y/Trauma or Illness?:Illness/Other How long have you had these symptoms (acute/chronic)?:Acute Reason for exam?:sob. Hx of COPD History of cancer?:unknown Surgeries, chemotherapy, or radiation?:cholecystectomy, hysterectomy, oophrectomy, left knee replacement Type of Exam?:Initial Additional signs and symptoms?:. Performed By: #### 4 [id number] #### LAB [address] [place] [address] Maurice Coello M.D. [id number] ALP [Catalytic activity/Vol] 97 U/L Normal 40-150 [facility] Comment on above: Order Comment: Injur y/Trauma or Illness?:Illness/Other How long have you had these symptoms (acute/chronic)?:Acute Reason for exam?:sob. Hx of COPD History of cancer?:unknown Surgeries, chemotherapy, or radiation?:cholecystectomy, hysterectomy, oophrectomy, left knee replacement Type of Exam?:Initial Additional signs and symptoms?:. Performed By: #### 4 6126 #### LAB [address] [place] [address] Maurice Coello M.D. [id number] ALT [Catalytic activity/Vol] 23 U/L Normal 0-35 U/L [facility] Comment on above: Order Comment: Injur y/Trauma or Illness?:Illness/Other How long have you had these symptoms (acute/chronic)?:Acute Reason for exam?:sob. Hx of COPD History of cancer?:unknown Surgeries, chemotherapy, or radiation?:cholecystectomy, hysterectomy, oophrectomy, left knee replacement Type of Exam?:Initial Additional signs and symptoms?:. Performed By: #### 4 6114 #### LAB [address] [place] [address] Maurice Coello M.D. [id number] Anion gap [Moles/Vol] 15 mmol/L Normal 10-[address] [facility] Comment on above: Order Comment: Injur y/Trauma or Illness?:Illness/Other How long have you had these symptoms (acute/chronic)?:Acute Reason for exam?:sob. Hx of COPD History of cancer?:unknown Surgeries, chemotherapy, or radiation?:cholecystectomy, hysterectomy, oophrectomy, left knee replacement Type of Exam?:Initial Additional signs and symptoms?:. Performed By: #### 4 6176 #### LAB [address] [place] [address] Maurice Coello M.D. [id number] AST [Catalytic activity/Vol] 47 U/L High 0-35 U/L [facility] Comment on above: Order Comment: Injur y/Trauma or Illness?:Illness/Other How long have you had these symptoms (acute/chronic)?:Acute Reason for exam?:sob. Hx of COPD History of cancer?:unknown Surgeries, chemotherapy, or radiation?:cholecystectomy, hysterectomy, oophrectomy, left knee replacement Type of Exam?:Initial Additional signs and symptoms?:. Result Comment: Slig htly Hemolyzed Performed By: #### 4 6193 #### LAB [address] [place] [address] Maurice Coello M.D. [id number] Bilirubin [Mass/Vol] 0.2 mg/dL Normal 0.0-1.3 [facility] Comment on above: Order Comment: Injur y/Trauma or Illness?:Illness/Other How long have you had these symptoms (acute/chronic)?:Acute Reason for exam?:sob. Hx of COPD History of cancer?:unknown Surgeries, chemotherapy, or radiation?:cholecystectomy, hysterectomy, oophrectomy, left knee replacement Type of Exam?:Initial Additional signs and symptoms?:. Performed By: #### 4 6126 #### LAB [address] [place] [address] Maurice Coello M.D. [id number] Calcium [Mass/Vol] 8.8 mg/dL Normal 8.4-10.2 [facility] Comment on above: Order Comment: Injur y/Trauma or Illness?:Illness/Other How long have you had these symptoms (acute/chronic)?:Acute Reason for exam?:sob. Hx of COPD History of cancer?:unknown Surgeries, chemotherapy, or radiation?:cholecystectomy, hysterectomy, oophrectomy, left knee replacement Type of Exam?:Initial Additional signs and symptoms?:. Performed By: #### 4 7485 #### LAB [address] [place] [address] Maurice Coello M.D. [id number] Chloride [Moles/Vol] 94 mmol/L Low 98-108 [facility] Comment on above: Order Comment: Injur y/Trauma or Illness?:Illness/Other How long have you had these symptoms (acute/chronic)?:Acute Reason for exam?:sob. Hx of COPD History of cancer?:unknown Surgeries, chemotherapy, or radiation?:cholecystectomy, hysterectomy, oophrectomy, left knee replacement Type of Exam?:Initial Additional signs and symptoms?:. Performed By: #### 4 6126 #### LAB [address] [place] [address] Maurice Coello M.D. [id number] Creatinine [Mass/Vol] 1.72 mg/dL High 0.60-1.[address] [facility] Comment on above: Order Comment: Injur y/Trauma or Illness?:Illness/Other How long have you had these symptoms (acute/chronic)?:Acute Reason for exam?:sob. Hx of COPD History of cancer?:unknown Surgeries, chemotherapy, or radiation?:cholecystectomy, hysterectomy, oophrectomy, left knee replacement Type of Exam?:Initial Additional signs and symptoms?:. Performed By: #### 4 5738 #### LAB [address] [place] [address] Maurice Coello M.D. [id number] EGFR 32 mL/min/1.73 m2 Low >=60 [facility] Comment on above: Order Comment: Injur y/Trauma or Illness?:Illness/Other How long have you had these symptoms (acute/chronic)?:Acute Reason for exam?:sob. Hx of COPD History of cancer?:unknown Surgeries, chemotherapy, or radiation?:cholecystectomy, hysterectomy, oophrectomy, left knee replacement Type of Exam?:Initial Additional signs and symptoms?:. Result Comment: Ericka mated GFR was calculated using the 2020 CKD-EPI creatinine equation. Performed By: #### 4 6192 #### LAB [address] [place] [address] Maurice Coello M.D. [id number] Glucose [Mass/Vol] 102 mg/dL High 65-99 [facility] Comment on above: Order Comment: Injur y/Trauma or Illness?:Illness/Other How long have you had these symptoms (acute/chronic)?:Acute Reason for exam?:sob. Hx of COPD History of cancer?:unknown Surgeries, chemotherapy, or radiation?:cholecystectomy, hysterectomy, oophrectomy, left knee replacement Type of Exam?:Initial Additional signs and symptoms?:. Performed By: #### 4 6126 #### LAB [address] [place] [address] Maurice Coello M.D. [id number] HCO3 (Bld) [Moles/Vol] 30 mmol/L Normal 21-32 [facility] Comment on above: Order Comment: Injur y/Trauma or Illness?:Illness/Other How long have you had these symptoms (acute/chronic)?:Acute Reason for exam?:sob. Hx of COPD History of cancer?:unknown Surgeries, chemotherapy, or radiation?:cholecystectomy, hysterectomy, oophrectomy, left knee replacement Type of Exam?:Initial Additional signs and symptoms?:. Performed By: #### 4 6126 #### LAB [address] [place] [address] Maurice Coello M.D. [id number] Potassium [Moles/Vol] 5.8 mmol/L High 3.5-5.[address] [facility] Comment on above: Order Comment: Injur y/Trauma or Illness?:Illness/Other How long have you had these symptoms (acute/chronic)?:Acute Reason for exam?:sob. Hx of COPD History of cancer?:unknown Surgeries, chemotherapy, or radiation?:cholecystectomy, hysterectomy, oophrectomy, left knee replacement Type of Exam?:Initial Additional signs and symptoms?:. Result Comment: Slig htly Hemolyzed Performed By: #### 4 6121 #### LAB [address] [place] [address] Maurice Coello M.D. [id number] Protein [Mass/Vol] 7.3 g/dL Normal 6.0-8.0 [facility] Comment on above: Order Comment: Injur y/Trauma or Illness?:Illness/Other How long have you had these symptoms (acute/chronic)?:Acute Reason for exam?:sob. Hx of COPD History of cancer?:unknown Surgeries, chemotherapy, or radiation?:cholecystectomy, hysterectomy, oophrectomy, left knee replacement Type of Exam?:Initial Additional signs and symptoms?:. Performed By: #### 4 6126 #### LAB [address] [place] [address] Maurice Coello M.D. [id number] Sodium [Moles/Vol] 133 mmol/L Low 135-145 [facility] Comment on above: Order Comment: Injur y/Trauma or Illness?:Illness/Other How long have you had these symptoms (acute/chronic)?:Acute Reason for exam?:sob. Hx of COPD History of cancer?:unknown Surgeries, chemotherapy, or radiation?:cholecystectomy, hysterectomy, oophrectomy, left knee replacement Type of Exam?:Initial Additional signs and symptoms?:. Performed By: #### 4 6126 #### LAB [address] [place] [address] Maurice Coello M.D. [id number] Urea nitrogen [Mass/Vol] 32 mg/dL High 8-25 [facility] Comment on above: Order Comment: Injur y/Trauma or Illness?:Illness/Other How long have you had these symptoms (acute/chronic)?:Acute Reason for exam?:sob. Hx of COPD History of cancer?:unknown Surgeries, chemotherapy, or radiation?:cholecystectomy, hysterectomy, oophrectomy, left knee replacement Type of Exam?:Initial Additional signs and symptoms?:. Performed By: #### 4 6126 #### LAB [address] [place] [address] Maurice Coello M.D. [id number] Urea nitrogen/Creatinine [Mass ratio] 18.6 mg/mg Normal 10.0-20.0 [facility] Comment on above: Order Comment: Injur y/Trauma or Illness?:Illness/Other How long have you had these symptoms (acute/chronic)?:Acute Reason for exam?:sob. Hx of COPD History of cancer?:unknown Surgeries, chemotherapy, or radiation?:cholecystectomy, hysterectomy, oophrectomy, left knee replacement Type of Exam?:Initial Additional signs and symptoms?:. Performed By: #### 4 6126 ####[facility] LAB [address] [place], [place] [address] Maurice Coello M.D. [id number] CPKon 09-21-2024 CPK 713 U/L High 40-170 [facility] Comment on above: Performed By: #### 4 7395 #### LAB [address] [place], [place] [address] Maurice Coello M.D. [id number] CPK NO MBon 09-21-2024 CK [Catalytic activity/Vol] 713 U/L High 40 - 170 U/L [facility] Comprehensive metabolic 2000 panelOrdered By: Michael Galvez on 09-21-2024 Albumin [Mass/Vol] 4.1 g/dL 3.2 - 5.2 g/dL [facility] ALP [Catalytic activity/Vol] 97 U/L 40 - 150 U/L [facility] ALT [Catalytic activity/Vol] 23 U/L 0-35 U/L [facility] Anion gap [Moles/Vol] 15 mmol/L 10 - 2 0 mmol/L [facility] AST [Catalytic activity/Vol] 47 U/L High 0-35 U/L [facility] Comment on above: Slightly Hemolyzed Bilirubin [Mass/Vol] 0.2 mg/dL 0.0 - 1 .3 mg/dL [facility] Calcium [Mass/Vol] 8.8 mg/dL 8.4 - 10. 2 mg/dL [facility] Chloride [Moles/Vol] 94 mmol/L Low 98 - 10 8 mmol/L [facility] Creatinine [Mass/Vol] 1.72 mg/dL High 0.60 - 1.10 mg/dL [facility] GFR/1.73 sq M.predicted CKD-EPI (S/P/Bld) [Vol rate/Area] 32 Low - PINF [facility] Comment on above: Estimated GFR was ca lculated using the 2020 CKD-EPI creatinine equation. Glucose [Mass/Vol] 102 mg/dL High 65 - 99 mg/dL [facility] HCO3 [Moles/Vol] 30 mmol/L 21 - 32 mmol/L [facility] Potassium [Moles/Vol] 5.8 mmol/L High 3.5 - 5.1 mmol/L [facility] Comment on above: Slightly Hemolyzed Protein [Mass/Vol] 7.3 g/dL 6.0 - 8.0 g/dL [facility] Sodium [Moles/Vol] 133 mmol/L Low 135 - 145 mmol/L [facility] Urea nitrogen [Mass/Vol] 32 mg/dL High 8 - 25 mg/dL [facility] Urea nitrogen/Creatinine [Mass ratio] 18.6 mg/mg 10.0 - 20.0 [facility] has implemented the eGFR calculation approach that does not have a coefficient for race that conforms to the NKF-ASN Task Force Recommendations. [facility] ED Prov Noteon 09-21-2024 ED Prov Note [facility] ED note NAME: Radha Shafer 64 y.o. CSN: [id number] PCP: No, Physician History: Chief Complaint: Shortness [...] ALTEMEIER PROCEDURE; Surgeon: Jada Vargas MD; Location: [facility] Main OR; Service: Colorectal CARDIAC CATHETERIZATION N/A 09/26/2022 Procedure: Coronary Angiogram; Surgeon: Tor Long MD; Location: [employer]; Service: Cardiovascular CARDIOVASCULAR STRESS TEST CHOLECYSTECTOMY COLONOSCOPY with biopsies COLONOSCOPY N/A 02/17/2022 Procedure: COLONOSCOPY; Surgeon: Jada Vargas MD; Location: [facility] Endo; Service: Colorectal EGD N/A 08/15/2022 Procedure: ESOPHAGOGASTRODUODENOSC OPY WITH BIOPSY; Surgeon: Tyshawn Santos MD; Location: Endo; Service: Gastroenterology GALLBLADDER HC LEFT HEART CATH N/A 09/26/2022 Procedure: Left Heart Cath; Surgeon: Tor Long MD; Location: [employer]ER; Service: Cardiovascular HYSTERECTOMY JOINT REPLACEMENT Left knee ORTHOPEDIC SURGERY r wrist surgery, left ankle, right rotator cuff ROTATOR CUFF REPAIR Right SIGMOIDOSCOPY FLEXIBLE N/A 06/23/2022 Procedure: SIGMOIDOSCOPY FLEXIBLE WITH BIOPSY; Surgeon: Tyshawn Santos MD; Location: Endo; Service: Gastroenterology THYROIDECTOMY N/A 07/15/2015 Procedure: TOTAL THYROIDECTOMY; Surgeon: Lopez Alonso MD; Location: [facility] NEURO OR; Service: US ECHO TRANSTHORACIC [...] Socioeconomic History Marital status: Occupational History Occupation: [employer] 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 Normal [facility] EKG 12-leadon 09-21-2024 Atrial Rate 75 BPM [facility] P [place] 74 degrees [facility] P-R Interval 152 ms [facility] Q-T Interval 362 ms [facility] QRS Duration 90 ms [facility] QTC Calculation (Bezet) 404 ms [facility] R [place] 34 degrees [facility] T [place] 65 degrees [facility] Ventricular Rate 75 BPM [facility] th Normal sinus rhythm Normal ECG ECG Cart Interpretation see physician note for interpretation. Confirmed by Rasheeda Bedolla ([id number]) on 09/21/2024 8:48:03 PM [facility] MRSA DNA AMPLIFIED PROBEon 1 11-21-2023 MRSA DNA AMPLIFIED PROBE Negative Normal Not Detected, MRSA NEGATIVE [facility] Comment on above: Performed By: #### [id number] #### LAB [address], [place] [address] Maurice Coello M.D. [id number] MYCOPLASMA PNEUMONIAE ANTIBO DY, IGMon 09-21-2024 MYCOPLASMA PNEUMONIAE IGM Non-Reactive for Mycoplasma pneumoniae IgM Normal Non-Reactive for Mycoplasma pneumoniae IgM [facility] Comment on above: Order Comment: Inter pretationNon-Reactive: Absence of IgM to Mycoplasma pneumoniae or levels below the limit of the assay. Performed By: #### 4 [id number] ####[facility] [address], [place] [address] Arnel Marie M.D. [id number] No Panel Informationon 09-21 Extra Tube Hold for add-ons. [facility] Comment on above: Auto resulted. [facility] No Panel InformationOrdered By: Michael Galvez on 09-21-2024 Interpretation and review of laboratory results Abnormal [facility] POC VENOUS BLOOD GAS PANEL-P SHAW Lindquist 09-21-2024 BASE EXCESS, VENOUS 5.2 High -2.0-2.0 [facility] Comment on above: Performed By: #### 4 [id number] #### [facility] [address] [address] Maurice Coello M.D. [id number] FIO2 36 [facility] Comment on above: Performed By: #### 4 6958 #### [facility] LAB [address] [address] Maurice Coello M.D. [id number] HCO3 (Bld) [Moles/Vol] 33.6 mmol/L High 24.0-28.0 [facility] Comment on above: Performed By: #### 4 8466 #### [facility] LAB [address] [address] Maurice Coello M.D. [id number] Hematocrit (Bld) [Volume fraction] 38.6 % Normal 36.0-46.0 [facility] Comment on above: Performed By: #### 4 1204 #### [facility] LAB [address] [address] Maurice Coello M.D. [id number] Hemoglobin (Bld) [Mass/Vol] 12.6 g/dL Normal 12.0-16.0 [facility] Comment on above: Performed By: #### 4 4801 #### [facility] LAB [address] [address] Maurice Coello M.D. [id number] LITER FLOW 4 [facility] Comment on above: Performed By: #### 4 5641 #### [facility] LAB [address] [address] Maurice Coello M.D. [id number] Oxygen saturation in Blood 94.8 % High 40.0-70.0 [facility] Comment on above: Performed By: #### 4 2983 #### [facility] LAB [address] [id number] Maurice Coello M.D. [id number] PCO2 VENOUS 67.4 mm Hg High 41.0-51.0 [facility] Comment on above: Performed By: #### 4 6932 #### LAB [address] [address] Maurice Coello M.D. [id number] PH VENOUS 7.31 Low 7.32-7.42 [facility] Comment on above: Performed By: #### 4 [id number] #### LAB [address] [address] Maurice Coello M.D. [id number] PO2 VENOUS 76 mm Hg High 25-40 [facility] Comment on above: Performed By: #### 4 [id number] #### LAB [address] [address] Maurice Coello M.D. [id number] SPECIMEN SOURCE RADIANCE Radial, right Normal [facility] Comment on above: Performed By: #### 4 [id number] #### LAB [address] [address] Maurice Coello M.D. [id number] POC Venous Blood Gas Panel-P [facility] 09-21-2024 Base excess Calc (BldV) [Moles/Vol] 5.2 mmol/L High -2.0 - 2.0 [facility] CO2 (BldV) [Partial pressure] 67.4 mm[Hg] High [facility] Hematocrit (BldA) [Volume fraction] 38.6 % 36.0 - 46.0 % [facility] Inhaled oxygen concentration 36 % [facility] Inhaled oxygen flow rate 4 L/min [facility] Interpretation and review of laboratory results Abnormal [facility] Oxygen (BldV) [Partial pressure] 76 mm[Hg] High [facility] Oxygen saturation in Venous blood 94.8 % High 40.0 - 70.0 % [facility] pH (BldV) 7.31 [pH] Low 7.32 - 7.42 [facility] Specimen source Nom (Unsp spec) Radial, right [facility] PROCALCITONINon 09-21-2024 PROCALCITONIN 0.14 ng/ml Normal <0.50 [facility] Comment on above: Order Comment: Resul ts <0.50 ng/ml represent a low risk of severe sepsis and/or septic shock. Performed By: #### 4 [id number] #### LAB [address], [place] [address] Maurice Coello M.D. [id number] Procalcitoninon 09-21-2024 Procalcitonin [Mass/Vol] 0.14 ng/mL NINF - 0.50 ng/ml [facility] Procalcitonin [Mass/Vol]on 11-21-2023 Interpretation and review of laboratory results Normal [facility] Results <0.50 ng/ml represent a low risk of severe sepsis and/or septic shock. [facility] TROPONINon 09-21-2024 BASELINE TROPONIN T NG/L 20 ng/L Off scale high <=14 [facility] Comment on above: Performed By: #### 4 6608 #### LAB [address], [place] [address] Maurice Coello M.D. [id number] TROPONIN T INTERPRETATION Possible acute cardiac injury. Normal [facility] Comment on above: Performed By: #### 4 6608 #### LAB [address], [place] [address] Maurice Coello M.D. [id number] TroponinOrdered By: Carole hughes on 09-21-2024 Troponin T 20 ng/L Critically high NINF - 14 ng/L [facility] Troponin T Interpretation Possible acute cardiac injury. [facility] XR CHEST PA/APon 09-21-2024 XR CHEST PA/AP [...] Sep 21, 2024 10:47:11 PM EST Normal [facility] Comment on above: Order Comment: Injur y/Trauma or Illness?:Illness/Other How long have you had these symptoms (acute/chronic)?:Acute Reason for exam?:sob. Hx of COPD History of cancer?:unknown Surgeries, chemotherapy, or radiation?:cholecystectomy, hysterectomy, oophrectomy, left knee replacement Type of Exam?:Initial Additional signs and symptoms?:. XR Chest PA and Abdomen APon 09-21-2024 No acute cardiopulmonary process. Stable chest x-ray. Workstation ID: [id number] [facility] EXAMINATION: XR CHEST PA/AP HISTORY: ORDERING SYSTEM [...] unremarkable. Multiple calcified granulomas are again seen. [facility] Paco Downs MD - 09/21/2024 EXAMINATION: XR [...] process. Stable chest x-ray. Workstation ID: [id number] [facility] Radiology Study observation (narrative) [facility] XR Chest PA and Abdomen APOr dered By: Paco Downs on 09-21-2024 [facility] Work Phone: Basic metabolic 2000 panelon 09-03-2024 Anion gap [Moles/Vol] 15 mmol/L 10 - 2 0 mmol/L [facility] Calcium [Mass/Vol] 9.1 mg/dL 8.4 - 10. 2 mg/dL [facility] Chloride [Moles/Vol] 98 mmol/L 98 - 10 8 mmol/L [facility] Creatinine [Mass/Vol] 1.61 mg/dL High 0.60 - 1.10 mg/dL [facility] GFR/1.73 sq M.predicted CKD-EPI (S/P/Bld) [Vol rate/Area] 35 Low - PINF [facility] Comment on above: Estimated GFR was ca lculated using the 2020 CKD-EPI creatinine equation. Glucose [Mass/Vol] 120 mg/dL High 65 - 99 mg/dL [facility] HCO3 [Moles/Vol] 25 mmol/L 21 - 32 mmol/L [facility] Interpretation and review of laboratory results Abnormal [facility] Potassium [Moles/Vol] 5.7 mmol/L High 3.5 - 5.1 mmol/L [facility] Sodium [Moles/Vol] 132 mmol/L Low 135 - 145 mmol/L [facility] Urea nitrogen [Mass/Vol] 35 mg/dL High 8 - 25 mg/dL [facility] Urea nitrogen/Creatinine [Mass ratio] 21.7 mg/mg High 10.0 - 20.0 [facility] Labor[facility] y Services has implemented the eGFR calculation approach that does not have a coefficient for race that conforms to the NKF-ASN Task Force Recommendations. [facility] CBC Auto Differentialon 08-07 Basophils (Bld) [#/Vol] 0.02 10*3/uL [facility] Basophils/100 WBC (Bld) 0.2 % [facility] Eosinophils (Bld) [#/Vol] 0 10*3/uL [facility] Eosinophils/100 WBC (Bld) 0 % [facility] Erythrocyte distribution width (RBC) [Entitic vol] 14.4 % 11.6 - 14.8 % [facility] Hematocrit (Bld) [Volume fraction] 35.3 % Low 36.0 - 46.0 % [facility] Hemoglobin (Bld) [Mass/Vol] 10.6 g/dL Low 12.0 - 16.0 g/dL [facility] Immature granulocytes (Bld) [#/Vol] 0.06 10*3/uL [facility] Immature granulocytes/100 WBC (Bld) 0.7 % [facility] Comment on above: The IG parameter is the percentage of metamyelocytes, myelocytes and promyelocytes. An immature granulocyte count (IG) of 1% or more suggests the possibility of infection, an IG count of 3% is very likely related to an infection. Interpretation and review of laboratory results Abnormal [facility] Lymphocytes (Bld) [#/Vol] 0.6 10*3/uL Low [facility] Lymphocytes/100 WBC (Bld) 7.4 % [facility] MCH (RBC) [Entitic mass] 25.9 pg Low 26.0 - 34.0 pg [facility] MCHC (RBC) [Mass/Vol] 30 g/dL Low 31.0 - 37.0 g/dL [facility] MCV (RBC) [Entitic vol] 86.1 fL 80.0 - 100.0 fL [facility] Monocytes (Bld) [#/Vol] 0.22 10*3/uL Low [facility] Monocytes/100 WBC (Bld) 2.7 % [facility] Neutrophils (Bld) [#/Vol] 7.26 10*3/uL High [facility] Neutrophils/100 WBC (Bld) 89 % [facility] Nucleated RBC (Bld) [#/Vol] 0 10*3/uL [facility] Nucleated RBC/100 WBC (Bld) [Ratio] 0 % [facility] Platelet mean volume (Bld) [Entitic vol] 10.5 fL 9.4 - 12.4 fL [facility] Platelets (Bld) [#/Vol] 229 10*3/uL [facility] RBC (Bld) [#/Vol] 4.1 10*6/uL [facility] [place] [facility] alth WBC (Bld) [#/Vol] 8.16 10*3/uL [facility] 12-leadon 09-03-2024 Atrial Rate 75 BPM [facility] P [place] 60 degrees [facility] P-R Interval 166 ms [facility] Q-T Interval 378 ms [facility] QRS Duration 104 ms [facility] QTC Calculation (Bezet) 422 ms [facility] R [place] 28 degrees [facility] T [place] 46 degrees [facility] Ventricular Rate 75 BPM [facility] Normal sinus rhythm Normal ECG ECG Cart Interpretation see physician note for interpretation. Confirmed by Rasheeda Bedolla ([id number]) on 09/03/2024 3:10:10 PM MUSE [facility] Basic metabolic 2000 panelon 09-02-2024 Anion gap [Moles/Vol] 17 mmol/L 10 - 2 0 mmol/L [facility] Calcium [Mass/Vol] 9.1 mg/dL 8.4 - 10. 2 mg/dL [facility] Chloride [Moles/Vol] 99 mmol/L 98 - 10 8 mmol/L [facility] Creatinine [Mass/Vol] 2.09 mg/dL High 0.60 - 1.10 mg/dL [facility] GFR/1.73 sq M.predicted CKD-EPI (S/P/Bld) [Vol rate/Area] 26 Low - PINF [facility] Comment on above: Estimated GFR was ca lculated using the 2020 CKD-EPI creatinine equation. Glucose [Mass/Vol] 112 mg/dL High 65 - 99 mg/dL [facility] HCO3 [Moles/Vol] 27 mmol/L 21 - 32 mmol/L [facility] Interpretation and review of laboratory results Abnormal [facility] Potassium [Moles/Vol] 5.2 mmol/L High 3.5 - 5.1 mmol/L [facility] Sodium [Moles/Vol] 138 mmol/L 135 - 145 mmol/L [facility] Urea nitrogen [Mass/Vol] 37 mg/dL High 8 - 25 mg/dL [facility] Urea nitrogen/Creatinine [Mass ratio] 17.7 mg/mg 10.0 - 20.0 [facility] has implemented the eGFR calculation approach that does not have a coefficient for race that conforms to the NKF-ASN Task Force Recommendations. [facility] CBC Auto Differentialon 08-07 Basophils (Bld) [#/Vol] 0.07 10*3/uL [facility] Basophils/100 WBC (Bld) 1 % [facility] Eosinophils (Bld) [#/Vol] 0.12 10*3/uL [facility] Eosinophils/100 WBC (Bld) 1.7 % [facility] Erythrocyte distribution width (RBC) [Entitic vol] 14.5 % 11.6 - 14.8 % [facility] Hematocrit (Bld) [Volume fraction] 40.6 % 36.0 - 46.0 % [facility] Hemoglobin (Bld) [Mass/Vol] 11.9 g/dL Low 12.0 - 16.0 g/dL [facility] Immature granulocytes (Bld) [#/Vol] 0.01 10*3/uL [facility] Immature granulocytes/100 WBC (Bld) 0.1 % [facility] Comment on above: The IG parameter is the percentage of metamyelocytes, myelocytes and promyelocytes. An immature granulocyte count (IG) of 1% or more suggests the possibility of infection, an IG count of 3% is very likely related to an infection. Interpretation and review of laboratory results Abnormal [facility] Lymphocytes (Bld) [#/Vol] 0.98 10*3/uL [facility] Lymphocytes/100 WBC (Bld) 14 % [facility] MCH (RBC) [Entitic mass] 25.8 pg Low 26.0 - 34.0 pg [facility] MCHC (RBC) [Mass/Vol] 29.3 g/dL Low 31.0 - 37.0 g/dL [facility] MCV (RBC) [Entitic vol] 88.1 fL 80.0 - 100.0 fL [facility] Monocytes (Bld) [#/Vol] 0.41 10*3/uL [facility] Monocytes/100 WBC (Bld) 5.8 % [facility] Neutrophils (Bld) [#/Vol] 5.43 10*3/uL [facility] Neutrophils/100 WBC (Bld) 77.4 % [facility] Nucleated RBC (Bld) [#/Vol] 0 10*3/uL [facility] Nucleated RBC/100 WBC (Bld) [Ratio] 0 % [facility] Platelet mean volume (Bld) [Entitic vol] 10.6 fL 9.4 - 12.4 fL [facility] Platelets (Bld) [#/Vol] 298 10*3/uL [facility] RBC (Bld) [#/Vol] 4.61 10*6/uL [facility] ealth WBC (Bld) [#/Vol] 7.02 10*3/uL [facility] CK [Catalytic activity/Vol]o n 09-02-2024 Interpretation and review of laboratory results Abnormal [facility] CPK NO MBon 09-02-2024 CK [Catalytic activity/Vol] 659 U/L High 40 - 170 U/L [facility] EKGon 09-02-2024 [facility] INR Coag (PPP) [Relative pablo e]on 09-02-2024 Interpretation and review of laboratory results Normal [facility] PT Coag (PPP) [Time] 12.5 s [facility] During the induction phase of oral anticoagulation, the INR may not reflect the anticoagulation status of the patient. Therapeutic ranges for INR's are: Most clinical situations: INR 2.0-3.0 Mechanical Prosthetic Valve: INR 2.5-3.5 Critical: INR >5.0 [facility] Influenza virus A and B RNA and SARS-CoV-2 (COVID-19) N gene panel CATRINA+probe (Resp)Ordered By: Mahogany Schultz on 09-02-2024 FLUAV RNA CATRINA+probe Ql (Unsp spec) Not detected Not Detected [facility] FLUBV RNA CATRINA+probe Ql (Unsp spec) Not detected Not Detected [facility] Interpretation and review of laboratory results Normal [facility] SARS-CoV-2 (COVID-19) RNA CATRINA+probe Ql (Resp) Not detected Not Detected [facility] POC Arterial Blood Gas Panel -Pulmon 09-02-2024 Alveolar-arterial oxygen Partial pressure difference 85.7 mm Hg [facility] Base excess Calc (Bld) [Moles/Vol] 0 mmol/L -2.0 - 2.0 [facility] CO2 (Bld) [Partial pressure] 53.5 mm[Hg] High [facility] HCO3 (Bld) [Moles/Vol] 26.9 mmol/L High 22.0 - 26.0 mmol/L [facility] Hematocrit (BldA) [Volume fraction] 36 % 36.0 - 46.0 % [facility] Hemoglobin (Bld) [Mass/Vol] 11.8 g/dL Low 12.0 - 16.0 g/dL [facility] Inhaled oxygen concentration 35 % [facility] Interpretation and review of laboratory results Abnormal [facility] Oxygen (Bld) [Partial pressure] 94 mm[Hg] High [facility] pH (Bld) 7.31 [pH] Low 7.35 - 7.45 [facility] Specimen source Nom (Unsp spec) Brachial, left [facility] POC Venous Blood Gas Panel-P ulmon 09-02-2024 Base excess Calc (BldV) [Moles/Vol] -0.2000 mmol/L -2.0 - 2.0 [facility] CO2 (BldV) [Partial pressure] 67.6 mm[Hg] High [facility] HCO3 (Bld) [Moles/Vol] 28.8 mmol/L High 24.0 - 28.0 mmol/L [facility] Hematocrit (BldA) [Volume fraction] 38 % 36.0 - 46.0 % [facility] Hemoglobin (Bld) [Mass/Vol] 12.4 g/dL 12.0 - 16.0 g/dL [facility] Inhaled oxygen concentration 36 % [facility] Inhaled oxygen flow rate 4 L/min [facility] Interpretation and review of laboratory results Abnormal [facility] Oxygen (BldV) [Partial pressure] 46 mm[Hg] High [facility] Oxygen saturation in Venous blood 78 % High 40.0 - 70.0 % [facility] pH (BldV) 7.24 [pH] Low 7.32 - 7.42 [facility] Specimen source Nom (Unsp spec) Not specified [facility] PT/INRon 09-02-2024 INR Coag (PPP) [Relative time] 0.9 {INR} 0.8 - 1.1 [facility] Troponin x 2 (Now and Repeat in 3 hours)Ordered By: Bhumi Teixeira on 09-02-2024 Delta Difference Troponin T -4 ng/L < = -/+ 7 change [facility] Interp Troponin T Delta Change Probable non-acute cardiac injury or late presentation of acute injury. [facility] Troponin T 14 ng/L NINF - 14 ng/L [facility] Troponin x 2 (Now and Repeat in 3 hours)Ordered By: Sunita Rodriguez on 09-02-2024 Interpretation and review of laboratory results Abnormal [facility] Troponin T 18 ng/L Critically high NINF - 14 ng/L [facility] Troponin T Interpretation Possible acute cardiac injury. [facility] Ultrasound duplex venous leg lefton 09-02-2024 Patient Info Name: RADHA SHAFER Age: 64 years : 1960 Gender: Female Exam Date: 09/02/2024 1:42 PM Patient Status: Inpatient Crew Trainer: Prema Hale RVT Referring Physician: OLIVIA Contreras; Indications R60.0 - Localized edema Procedure Description 56936 Duplex examination using B-mode, color and spectral [...] Date: 09/02/2024 1:42 PM Patient Status: Inpatient Crew Trainer: Prema Hale RVT Referring Physician: OLIVIA Contreras; Indications R60.0 - Localized edema Procedure Description 40181 Duplex examination using B-mode, color and spectral [...] Small Saphenous: - Small Saphenous: - - [facility] UrinalysisOrdered By: Nicol Perez on 09-02-2024 Bacteria Auto Ql (U) None Seen None Se en /hpf [facility] Bilirubin Ql (U) Negative Negative [facility] th Clarity Refractometry automated (U) Clear Clear [facility] Color (U) Colorless Colorless, Yellow [facility] Epithelial cells.squamous Auto (Urine sed) [#/Area] [facility] Glucose Auto test strip (U) [Mass/Vol] Negative Negative mg/dL [facility] Hemoglobin Auto test strip Ql (U) Small Abnormal Negative [facility] Interpretation and review of laboratory results Abnormal [facility] Ketones (U) [Mass/Vol] Negative Negat radha mg/dL [facility] Leukocyte esterase Auto test strip Ql (U) Negative Negative [facility] Mucus Auto (Urine sed) [#/Area] Rare None Seen, Rare /lpf [facility] Nitrite Auto test strip Ql (U) Negative Negative [facility] pH (U) 5 [pH] 5.0 - 7.0 [facility] Protein (U) [Mass/Vol] Negative Negat radha mg/dL [facility] Specific gravity (U) [Rel density] 1.008 1.005 - 1.025 [facility] Urobilinogen (U) [Mass/Vol] mg/dL NINF - 2.0 mg/dL [facility] WBC Auto (Urine sed) [#/Area] 3 [facility] Microscopic examinat ion is performed on all urinalysis samples and only positive findings are reported. The test for blood on the chemical analytic portion of urinalysis may also be positive due to hemoglobinuria and myoglobinuria and if red blood cells are present they are quantified by microscopic examination. [facility] VBG (obtain and perform)on [facility] XR Chest PA and Abdomen APon 09-02-2024 No acute cardiopulmonary process. [employer] Workstation ID: [id number] EXAMINATION: XR CHEST PA/AP HISTORY: ORDERING SYSTEM [...] normal in size. Bony thorax is unremarkable. [facility] Maria Victoria Day, DO - 09/02/2024 EXAMINATION: [...] is unremarkable. IMPRESSION: No acute cardiopulmonary process. [employer] Workstation ID: [id number] [facility] Radiology Study observation (narrative) [facility] XR Chest PA and Abdomen APOr dered By: Maria Victoria Day on 09-02-2024 [facility] Work Phone: XR Knee - left 2 Viewson No acute osseous abnormality. Intact total knee replacement. ST/lab Workstation ID: [id number] Iggli RIS EXAMINATION: XR KNEE LEFT 2 VIEWS [...] the lateral view. No significant joint effusion. [facility] Xavier, Africatuan Claudeglo alexis, DO - 09/02/2024 [...] total knee replacement. ST/lab Workstation ID: [id number] [facility] Radiology Study observation (narrative) [facility] Basophil percentageOrdered B y: Jennifer Woodstock on 04-25-2024 Bilirubin [Mass/Vol] 0.20 mg/dL 0.20-1.00 [facility] Comment on above: For patients on eltr ombopag therapy, use of [place] TBIL is not recommended. Chloride [Moles/Vol] 104 mmol/L 98-107 [facility] Glucose [Mass/Vol] 137 mg/dL 74-106 [facility] Comment on above: Fasting Glucose resu lt greater than or equal to 126 mg/dL suggests DIABETES MELLITUS per A.D.A. criteria. Potassium [Moles/Vol] 4.7 mmol/L 3.5-5.1 [facility] Protein [Mass/Vol] 7.9 g/dL 6.4-8.2 [facility] Sodium [Moles/Vol] 138 mmol/L 136-145 [facility] Laboratory - Chemistry and C hemistry - challengeOrdered By: Jennifer Gordon on 02-29-2024 Albumin/Globulin [Mass ratio] 0.8 {ratio} 0.9-2.4 [facility] ALP [Catalytic activity/Vol] 85 U/L 45-117 [facility] ALT [Catalytic activity/Vol] 29 U/L 13-56 [facility] CO2 [Moles/Vol] 26.0 mmol/L 21.0-32.0 [facility] Globulin (S) [Mass/Vol] 4.4 g/dL 2.2-4.2 [facility] Urea nitrogen/Creatinine [Mass ratio] 10.6 mg/mg 10-20 [facility] No Panel InformationOrdered By: Jennifer Gordon on 02-29-2024 Estimated GFR (MDRD) Amer 34 mL/min >60 [facility] Comment on above: GFR Calc Estimated GFR (MDRD) Non-Af Amer 28 mL/min >60 [facility] Comment on above: Non- GFR Calc Serum or plasma calcium marivel urement (mass/volume)Ordered By: Jennifer Gordon on 02-29-2024 Calcium [Mass/Vol] 9.3 mg/dL 8.5-10.1 [facility] Serum or plasma creatinine m easurement (mass/volume)Ordered By: Jennifer Gordon on 02-29-2024 Creatinine [Mass/Vol] 1.89 mg/dL 0.55-1.02 [facility] Comment on above: The validity of the calculated GFR & GFRAA in patients over 70 years has not been determined. Clinical correlation is essential. Serum or plasma thyroid stim ulating hormone (TSH) measurement (units/volume)Ordered By: Jennifer Gordon on 02-29-2024 TSH Qn 1.67 uIU/mL 0.358-3.74 [facility] Serum or plasma urea nitroge n measurement (mass/volume)Ordered By: Jennifer Gordon on 02-29-2024 Urea nitrogen [Mass/Vol] 20 mg/dL 7-18 [facility] Thin prep Papanicolaou smear with manual screeningOrdered By: Jennifer Gordon on 02-29-2024 Thin prep Papanicolaou smear with manual screening 3.5 g/dL 3.2-5.0 [facility] Thin prep Papanicolaou smear with manual screening 45 U/L 15-37 [facility] [facility] Thin prep Papanicolaou smear with manual screening 8 5-15 [facility] Whole blood hemoglobin A1c/t otal hemoglobin ratio (mass fraction)Ordered By: Jennifer Gordon on 02-29-2024 HbA1c (Bld) [Mass fraction] 5.9 % 3.8-5.6 [facility] Comment on above: Normal < 5.7 % Predi abetic 5.7 - 6.4 % Diabetic >or= 6.5 % Please note range changes. Absolute lymphocyte countOrd ered By: German Kamara on 12-29-2023 Lymphocytes Auto (Unsp spec) [#/Vol] 1.90 10*3/uL 0.83-4.51 [facility] Automated lymphocyte count a s percentage of total leukocytesOrdered By: German Kamara on 12-29-2023 Lymphocytes/100 WBC Auto (Unsp spec) 17.8 % 19-41 [facility] Basophil percentageOrdered B y: Jennifer Gordon on 12-29-2023 Bilirubin [Mass/Vol] 0.20 mg/dL 0.20-1.00 [facility] Comment on above: For patients on eltr ombopag therapy, use of Dimension [place] TBIL is not recommended. Chloride [Moles/Vol] 106 mmol/L 98-107 [facility] Cholesterol [Mass/Vol] 210 mg/dL <200 [facility] Comment on above: <200 mg/dL Desirable 200-240 mg/dL Borderline >240 mg/dL High Risk Glucose [Mass/Vol] 141 mg/dL 74-106 [facility] Comment on above: Fasting Glucose resu lt greater than or equal to 126 mg/dL suggests DIABETES MELLITUS per A.D.A. criteria. Potassium [Moles/Vol] 4.6 mmol/L 3.5-5.1 [facility] Protein [Mass/Vol] 7.7 g/dL 6.4-8.2 [facility] Sodium [Moles/Vol] 137 mmol/L 136-145 [facility] Triglyceride [Mass/Vol] 265 mg/dL <199 [facility] Comment on above: The drugs N-Acetylcy steine and Metamizole may falsely depress this assay.Serum Triglycerides Reference Interval Normal <150 mg/dL Borderline high 150 - 199 mg/dL High 200 - 499 mg/dL Very High > or = 500 mg/dL Basophil percentageOrdered B y: German Kamara on 12-29-2023 Basophils/100 WBC (Bld) 0.8 % 0-1 [facility] Eosinophils/100 WBC (Bld) 2.2 % 0-5 [facility] Hemoglobin (Bld) [Mass/Vol] 11.7 g/dL 12.0-15.0 [facility] Monocytes/100 WBC (Bld) 6.9 % 0-10 [facility] Neutrophils (Bld) [#/Vol] 7.7 10*3/uL 2.0-7.7 [facility] Neutrophils/100 WBC (Bld) 71.8 % 47-70 [facility] WBC (Bld) [#/Vol] 10.7 10*3/uL 4.4-11.0 [facility] Bilirubin Test strip Ql (U)O rdered By: German Kamara on 12-29-2023 Bilirubin Ql (U) Negative Negative [facility] Determination of erythrocyte mean corpuscular volume (MCV)Ordered By: German Kamara on 12-29-2023 MCV (RBC) [Entitic vol] 85.8 fL 81-99 [facility] Erythrocyte distribution wid th ratioOrdered By: German Kamara on 12-29-2023 Erythrocyte distribution width (RBC) [Ratio] 15.9 % 11.6-14.6 [facility] Erythrocyte distribution wid th standard deviationOrdered By: German Kamara on 12-29-2023 Erythrocyte distribution width (RBC) [Entitic vol] 50.2 fL 35.1-43.9 [facility] Hematocrit Auto (Bld) [Volum e fraction]Ordered By: German Kamara on 12-29-2023 Hematocrit (Bld) [Volume fraction] 39.3 % 37-47 [facility] Immature granulocytes/100 WB C Auto (Bld)Ordered By: German Kamara on 12-29-2023 Immature granulocytes/100 WBC (Bld) 0.500 % 0.0-0.9 [facility] Comment on above: IG% - Immature Granu locytes (promyelocytes, myelocytes and metamyelocytes) > 1% indicates that a LEFT SHIFT is Present. Ketones Test strip Ql (U)Ord ered By: German Kamara on 12-29-2023 Ketones Ql (U) Negative Negative [facility] Laboratory - Chemistry and C hemistry - challengeOrdered By: Jennifer Gordon on 12-29-2023 Albumin/Globulin [Mass ratio] 0.8 {ratio} 0.9-2.4 [facility] ALP [Catalytic activity/Vol] 89 U/L 45-117 [facility] ALT [Catalytic activity/Vol] 21 U/L 13-56 [facility] Cholesterol in HDL [Mass/Vol] 36 mg/dL >40 [facility] Comment on above: The drugs N-Acetylcy steine and Metamizole may falsely depress this assay. Reference Range HDL <40 mg/dL Low HDL Cholesterol HDL >or= 60 mg/dL High HDL Cholesterol Cholesterol in LDL [Mass/Vol] 121 mg/dL 0-130 [facility] CO2 [Moles/Vol] 26.0 mmol/L 21.0-32.0 [facility] Globulin (S) [Mass/Vol] 4.3 g/dL 2.2-4.2 [facility] Magnesium [Mass/Vol] 2.3 mg/dL 1.6-2.6 [facility] Urea nitrogen/Creatinine [Mass ratio] 13.5 mg/mg 10-20 [facility] Laboratory - Hematology and Cell countsOrdered By: German Kamara on 12-29-2023 MCH (RBC) [Entitic mass] 25.5 pg 27.0-32.0 [facility] MCHC (RBC) [Mass/Vol] 29.8 g/dL 32-36 [facility] Nucleated RBC/100 WBC (Bld) [Ratio] 0 % 0-5 [facility] Platelet mean volume (Bld) [Entitic vol] 10.2 fL 6.2-12.0 [facility] Platelets (Bld) [#/Vol] 350 10*3/uL 150-450 [facility] Nitrite Test strip Ql (U)Ord ered By: German Kamara on 12-29-2023 Nitrite Ql (U) Negative Negative [facility] No Panel InformationOrdered By: Jennifer Gordon on 12-29-2023 Estimated GFR (MDRD) Amer 33 mL/min >60 [facility] Comment on above: GFR Calc Estimated GFR (MDRD) Non-Af Amer 28 mL/min >60 [facility] Comment on above: Non- GFR Calc VLDL Cholesterol 53 mg/dL 5-40 [facility] No Panel InformationOrdered By: German Kamara on 12-29-2023 Parathyroid Hormone (Intact) 96.2 pg/mL 18.4-80.1 [facility] Vitamin D 25-Hydroxy 65.9 ng/mL [facility] Comment on above: Vitamin D 25(OH) Sta tus Range Deficiency <20 ng/mL (50nmol/L) Insufficiency 20 - 30 ng/mL (50 - 75 nmol/L) Sufficiency 30 - 100 ng/mL (75 - 250 nmol/L) Toxicity >100 ng/mL (>250 nmol/L) Protein Test strip Ql (U)Ord ered By: German Kamara on 12-29-2023 Protein Ql (U) 100 mg/dl Negative [facility] RBC Auto (Bld) [#/Vol]Ordere d By: German Kamara on 12-29-2023 RBC (Bld) [#/Vol] 4.58 10*6/uL 4.2-5.4 [facility] Serum or plasma calcium marivel urement (mass/volume)Ordered By: Jennifer Gordon on 12-29-2023 Calcium [Mass/Vol] 8.9 mg/dL 8.5-10.1 [facility] Serum or plasma creatinine m easurement (mass/volume)Ordered By: Jennifer Gordon on 12-29-2023 Creatinine [Mass/Vol] 1.93 mg/dL 0.55-1.02 [facility] Comment on above: The validity of the calculated GFR & GFRAA in patients over 70 years has not been determined. Clinical correlation is essential. Serum or plasma thyroid stim ulating hormone (TSH) measurement (units/volume)Ordered By: Jennifer Gordon on 12-29-2023 TSH Qn 24.50 uIU/mL 0.358-3.74 [facility] Serum or plasma triiodothyro nine measurement by immunoassay (mass/volume)Ordered By: Jennifer Gordon on 12-29-2023 T3 IA [Mass/Vol] 1.06 ng/mL 0.6-1.81 [facility] Serum or plasma urea nitroge n measurement (mass/volume)Ordered By: Jennifer Gordon on 12-29-2023 Urea nitrogen [Mass/Vol] 26 mg/dL 7-18 [facility] Thin prep Papanicolaou smear with manual screeningOrdered By: Jennifer Gordon on 12-29-2023 Thin prep Papanicolaou smear with manual screening 3.4 g/dL 3.2-5.0 [facility] Thin prep Papanicolaou smear with manual screening 20 U/L 15-37 [facility] Thin prep Papanicolaou smear with manual screening 5 5-15 [facility] Thin prep Papanicolaou smear with manual screening 1.10 ng/dL 0.76-1.46 [facility] Thin prep Papanicolaou smear with manual screeningOrdered By: German Kamara on 12-29-2023 Protein (U) [Mass/Vol] 62.0 mg/dL 0.0-11.8 [facility] Urine blood detectionOrdered By: German Kamara on 12-29-2023 RBC Ql (U) Negative Negative [facility] Urine clarityOrdered By: Ludin Kamara on 12-29-2023 Clarity (U) Clear Clear [facility] Urine color determinationOrd ered By: German Kamara on 12-29-2023 Color (U) Yellow Yellow [facility] Urine creatinine measurement (mass/volume)Ordered By: German Kamara on 12-29-2023 Creatinine (U) [Mass/Vol] 98.60 mg/dL NO RANGE EST. [facility] Urine glucose detectionOrder ed By: German Kamara on 12-29-2023 Glucose Ql (U) Normal mg/dl Normal [facility] Urine leukocyte esterase det ection by dipstickOrdered By: German Kamara on 12-29-2023 Leukocyte esterase Test strip Ql (U) 100 /ul Negative [facility] Urine pHOrdered By: Harriet Kamara on 12-29-2023 pH (U) 6.0 [pH] 5.0 - 8.0 [facility] Urine protein/creatinine mas s ratioOrdered By: German Kamara on 12-29-2023 Protein/Creatinine (U) [Mass ratio] 629 mg/g CRE 0-200 [facility] Urine specific gravity measu rementOrdered By: German Kamara on 12-29-2023 Specific gravity (U) [Rel density] 1.015 1.002-1.030 [facility] Urine urobilinogen measureme ntOrdered By: German Kamara on 12-29-2023 Urobilinogen Ql (U) Normal mg/dl Normal [facility] Albumin Elph [Mass/Vol]Order ed By: Rusty Dozier on 11-28-2023 Albumin [Mass/Vol] 3.8 g/dL 2.9-4.4 [facility] Basophil percentageOrdered B y: Rusty Dozier on 01-23-2024 Basophil percentage Comment . [facility] Comment on above: Bence Davila Protein positive; kappa type.Performed at: [employer] [facility] [id number] Director: Myron Kennedy PhD, Phone: [phone] Interpretation of serum or p lasma protein pattern by immunofixation (narrative resultOrdered By: Rusty Dozier on 11-28-2023 Protein Fractions Immunofixation Jamison [Interp] Not Observed g/dL Not Observed [facility] - Chemistry and C hemistry - challengeOrdered By: Rusty Dozier on 11-28-2023 IgM (U) [Mass/Vol] 58 mg/dL 26-217 [facility] No Panel InformationOrdered By: Rusty Dozier on 11-28-2023 Addendum Document Comment . [facility] Comment on above: Protein electrophore sis scan will follow via computer,mail, or secondary school registrar delivery. Free Lambda Light Chains, Quant 41.5 mg/L 5.7-26.3 [facility] Serum [id number] measu rement by electrophoresisOrdered By: Rusty Dozier on 11-28-2023 Alpha 1 globulin Elph [Mass/Vol] 0.2 g/dL 0.0-0.4 [facility] Alpha 1 globulin Elph [Mass/Vol] 1.0 g/dL 0.4-1.0 [facility] Serum globulin measurement ( mass/volume)Ordered By: Rusty Dozier on 11-28-2023 Globulin (S) [Mass/Vol] 3.6 g/dL 2.2-3.9 [facility] Serum immunoglobulin kappa l ight chains/immunoglobulin lambda light chains mass ratioOrdered By: Rusty Dozier on 11-28-2023 Immunoglobulin light chains.kappa/Immunoglob ulin light chains.lambda (S) [Mass ratio] 1.26 0.26-1.65 [facility] Serum or plasma IgA measurem ent (mass/volume)Ordered By: Rusty Dozier on 11-28-2023 IgA [Mass/Vol] 147 mg/dL 87-352 [facility] Serum or plasma IgG measurem ent (mass/volume)Ordered By: Rusty Dozier on 11-28-2023 IgG [Mass/Vol] 1444 mg/dL 586-1602 [facility] Serum or plasma beta globuli n measurement by electrophoresis (mass/volume)Ordered By: Rusty Dozier on 11-28-2023 Beta globulin Elph [Mass/Vol] 1.1 g/dL 0.7-1.3 [facility] Serum or plasma gamma globul in measurement by electrophoresis (mass/volume)Ordered By: Rusty Dozier on 11-28-2023 Gamma globulin Elph [Mass/Vol] 1.3 g/dL 0.4-1.8 [facility] Serum or plasma immunoelectr ophoresis interpretation (nominal result)Ordered By: Rusty Dozier on 11-28-2023 Interpretation IEP [Interp] Comment . [facility] Comment on above: No monoclonality det ected. Serum or plasma immunoglobul in kappa light chains measurement (mass/volume)Ordered By: Rusty Dozier on 11-28-2023 Immunoglobulin light chains.kappa [Mass/Vol] 52.2 mg/L 3.3-19.4 [facility] Thin prep Papanicolaou smear with manual screeningOrdered By: Rusty Dozier on 11-28-2023 Thin prep Papanicolaou smear with manual screening 1.1 0.7-1.7 [facility] Total protein bloodOrdered B y: Rusty Dozier on 11-28-2023 Protein [Mass/Vol] 7.4 g/dL 6.0-8.5 [facility] Tendon Injection: Flexor Ten don Sheathon 10-16-2023 Rivas Jules MD 10/16/2023 2:42 PM Tendon Injection: Flexor Tendon Sheath Performed by: Rivas Jules MD Authorized by: Rivas Jules MD Consent given by: Patient Timeout performed at: 10/16/2023 2:41 PM Indications: Pain Location: Thumb Laterality: Left Needle size: 22 G Medications: 80 mg methylPREDNISolone acetate 40 mg/mL Anesthetic used: Lidocaine 1% [facility] Absolute lymphocyte countOrd ered By: Jennifer Gordon on 06-05-2023 Lymphocytes Auto (Unsp spec) [#/Vol] 2.66 10*3/uL 0.83-4.51 [facility] Basophil percentageOrdered B y: Jennifer Gordon on 06-05-2023 Basophils/100 WBC (Bld) 0.8 % 0-1 [facility] Bilirubin [Mass/Vol] 0.20 mg/dL 0.20-1.00 [facility] Comment on above: For patients on eltr ombopag therapy, use of Dimension [place] TBIL is not recommended. Chloride [Moles/Vol] 104 mmol/L 98-107 [facility] Cholesterol [Mass/Vol] 220 mg/dL <200 [facility] Comment on above: <200 mg/dL Desirable 200-240 mg/dL Borderline >240 mg/dL High Risk Eosinophils/100 WBC (Bld) 3.4 % 0-5 [facility] Glucose [Mass/Vol] 107 mg/dL 74-106 [facility] Comment on above: Fasting Glucose resu lt from 100 to 125 mg/dL suggests IMPAIRED HOMEOSTASIS per A.D.A. criteria. Neutrophils (Bld) [#/Vol] 6.1 10*3/uL 2.0-7.7 [facility] Neutrophils/100 WBC (Bld) 60.7 % 47-70 [facility] Potassium [Moles/Vol] 5.4 mmol/L 3.5-5.1 [facility] Protein [Mass/Vol] 8.1 g/dL 6.4-8.2 [facility] Sodium [Moles/Vol] 136 mmol/L 136-145 [facility] Triglyceride [Mass/Vol] 240 mg/dL <199 [facility] Comment on above: The drugs N-Acetylcy steine and Metamizole may falsely depress this assay.Serum Triglycerides Reference Interval Normal <150 mg/dL Borderline high 150 - 199 mg/dL High 200 - 499 mg/dL Very High > or = 500 mg/dL WBC (Bld) [#/Vol] 10.0 10*3/uL 4.4-11.0 [facility] Blood erythrocytes count (nu mber/volume)Ordered By: Jennifer Gordon on 06-05-2023 RBC (Bld) [#/Vol] 4.74 10*6/uL 4.2-5.4 [facility] Blood hemoglobin measurement (mass/volume)Ordered By: Jennifer Gordon on 06-05-2023 Hemoglobin (Bld) [Mass/Vol] 11.5 g/dL 12.0-15.0 [facility] Blood lymphocytes/100 leukoc ytesOrdered By: Jennifer Gordon on 06-05-2023 Lymphocytes/100 WBC (Bld) 26.7 % 19-41 [facility] Blood monocytes/100 leukocyt esOrdered By: Jennifer Gordon on 06-05-2023 Monocytes/100 WBC (Bld) 7.9 % 0-10 [facility] Blood platelet mean volumeOr dered By: Jennifer Gordon on 06-05-2023 Platelet mean volume (Bld) [Entitic vol] 10.5 fL 6.2-12.0 [facility] Determination of erythrocyte mean corpuscular volume (MCV)Ordered By: Jennifer Gordon on 06-05-2023 MCV (RBC) [Entitic vol] 83.8 fL 81-99 [facility] Hematocrit Auto (Bld) [Volum e fraction]Ordered By: Jennifer Gordon on 06-05-2023 Hematocrit (Bld) [Volume fraction] 39.7 % 37-47 [facility] Laboratory - Chemistry and C hemistry - challengeOrdered By: Jennifer Gordon on 06-05-2023 ALP [Catalytic activity/Vol] 105 U/L 45-117 [facility] ALT [Catalytic activity/Vol] 18 U/L 13-56 [facility] CO2 [Moles/Vol] 26.0 mmol/L 21.0-32.0 [facility] Globulin (S) [Mass/Vol] 4.6 g/dL 2.2-4.2 [facility] Lipase [Catalytic activity/Vol] 69 U/L 13-75 [facility] Comment on above: Please note:LIPASE r evised reference range effective 23. New Lipase methodology. Expected to produce lower values than the previous assay method. NEW Reference Range: 13 - 75 U/L Urea nitrogen/Creatinine [Mass ratio] 12.2 mg/mg 10-20 [facility] Laboratory - Hematology and Cell countsOrdered By: Jennifer Gordon on 06-05-2023 Erythrocyte distribution width (RBC) [Entitic vol] 50.5 fL 35.1-43.9 [facility] Erythrocyte distribution width (RBC) [Ratio] 16.6 % 11.6-14.6 [facility] Immature granulocytes/100 WBC (Bld) 0.500 % 0.0-0.9 [facility] Comment on above: IG% - Immature Granu locytes (promyelocytes, myelocytes and metamyelocytes) > 1% indicates that a LEFT SHIFT is Present. MCH (RBC) [Entitic mass] 24.3 pg 27.0-32.0 [facility] Nucleated RBC/100 WBC (Bld) [Ratio] 0 % 0-5 [facility] MCHC Auto (RBC) [Mass/Vol]Or dered By: Jennifer Gordon on 06-05-2023 MCHC (RBC) [Mass/Vol] 29.0 g/dL 32-36 [facility] No Panel InformationOrdered By: Jennifer Gordon on 06-05-2023 Endomysial IgA Antibody Negative Negative [facility] Estimated GFR (MDRD) Amer 36 mL/min >60 [facility] Comment on above: GFR Calc Estimated GFR (MDRD) Non-Af Amer 30 mL/min >60 [facility] Comment on above: Non- GFR Calc Thyroid Stimulating Hormone (TSH) 0.12 uIU/mL 0.358-3.74 [facility] Vitamin D 25-Hydroxy 42.0 ng/mL [facility] Comment on above: Vitamin D 25(OH) Sta tus Range Deficiency <20 ng/mL (50nmol/L) Insufficiency 20 - 30 ng/mL (50 - 75 nmol/L) Sufficiency 30 - 100 ng/mL (75 - 250 nmol/L) Toxicity >100 ng/mL (>250 nmol/L) Platelets bldOrdered By: Amadou Gordon on 06-05-2023 Platelets (Bld) [#/Vol] 370 10*3/uL 150-450 [facility] Serum IgA measurement (units /volume)Ordered By: Jennifer Gordon on 06-05-2023 IgA Qn (S) 135 mg/dL 87-352 [facility] Comment on above: Performed at: [employer] [facility] [id number] [place], [place] [id number] Director: Myron Kennedy PhD, Phone: [phone] Serum or plasma albumin marivel urement (mass/volume)Ordered By: Jennifer Gordon on 06-05-2023 Albumin [Mass/Vol] 3.5 g/dL 3.2-5.0 [facility] Serum or plasma albumin/glob ulin mass ratioOrdered By: Jennifer Gordon on 06-05-2023 Albumin/Globulin [Mass ratio] 0.8 {ratio} 0.9-2.4 [facility] Serum or plasma calcium marivel urement (mass/volume)Ordered By: Jennifer Gordon on 06-05-2023 Calcium [Mass/Vol] 9.1 mg/dL 8.5-10.1 [facility] Serum or plasma cholesterol in HDL measurement (mass/volume)Ordered By: Jennifer Gordon on 06-05-2023 Cholesterol in HDL [Mass/Vol] 40 mg/dL >40 [facility] Comment on above: The drugs N-Acetylcy steine and Metamizole may falsely depress this assay. Reference Range HDL <40 mg/dL Low HDL Cholesterol HDL >or= 60 mg/dL High HDL Cholesterol Serum or plasma cholesterol in VLDL measurement (mass/volume)Ordered By: Jennifer Gordon on 06-05-2023 Cholesterol in VLDL [Mass/Vol] 48 mg/dL 5-40 [facility] Serum or plasma creatinine m easurement (mass/volume)Ordered By: Jennifer Gordon on 06-05-2023 Creatinine [Mass/Vol] 1.80 mg/dL 0.55-1.02 [facility] Comment on above: The validity of the calculated GFR & GFRAA in patients over 70 years has not been determined. Clinical correlation is essential. Serum or plasma low density lipoprotein (LDL) cholesterol measurement (mass/volume)Ordered By: Jennifer Gordon on 06-05-2023 Cholesterol in LDL [Mass/Vol] 132 mg/dL 0-130 [facility] Serum or plasma urea nitroge n measurement (mass/volume)Ordered By: Jennifer Gordon on 06-05-2023 Urea nitrogen [Mass/Vol] 22 mg/dL 7-18 [facility] Serum tissue transglutaminas e IgA antibody assay (units/volume)Ordered By: Jennifer Gordon on 06-05-2023 tTG IgA Qn (S) <2 U/mL 0-3 [facility] Comment on above: Negative 0 - 3 Weak Positive 4 - 10 Positive >10 Tissue Transglutaminase (tTG) has been identified as the endomysial antigen. Studies have demonstr- ated that endomysial IgA antibodies have over 99% specificity for gluten sensitive enteropathy. Thin prep Papanicolaou smear with manual screeningOrdered By: Jennifer Gordon on 06-05-2023 Thin prep Papanicolaou smear with manual screening 17 U/L 15-37 [facility] Thin prep Papanicolaou smear with manual screening 6 5-15 [facility] ACYLCARNITINES, QUANTITATIVE , BLOOD SPOT FILTER PAPERon 02-15-2023 3-Hydroxyisovalerylcarn itine (C5-OH) (DBS) [Moles/Vol] 0.12 umol/L NINF - 0.40 umol/L [facility] Acylcarnitine pattern [Interp] Interpretation: [facility] Comment on above: Clinical correlation suggested. Mild elevation in isovalerylcarnitine (C5), can be seen in isovaleric acidemia. Otherwise unremarkable profile. Adipoylcarnitine (C6-DC) (DBS) [Moles/Vol] <0.01 NINF - 0.10 umol/L [facility] C0 (DBS) [Moles/Vol] 19.70 umol/L 15.0 - 55.0 umol/L [facility] C10 (DBS) [Moles/Vol] 0.09 umol/L NINF - 0.25 umol/L [facility] C10:1 (DBS) [Moles/Vol] <0.08 NINF - 0.50 umol/L [facility] C10:2 (DBS) [Moles/Vol] <0.04 NINF - 0.28 umol/L [facility] C12 (DBS) [Moles/Vol] 0.14 umol/L High NINF - 0.13 umol/L [facility] C12:1 (DBS) [Moles/Vol] 0.03 umol/L NINF - 0.19 umol/L [facility] C14 (DBS) [Moles/Vol] 0.17 umol/L High NINF - 0.15 umol/L [facility] C14-[place] (DBS) [Moles/Vol] 0.02 umol/L NINF - 0.13 umol/L [facility] C14:1 (DBS) [Moles/Vol] 0.05 umol/L NINF - 0.21 umol/L [facility] C14:2 (DBS) [Moles/Vol] 0.02 umol/L NINF - 0.12 umol/L [facility] C16 (DBS) [Moles/Vol] 1.25 umol/L NINF - 1.73 umol/L [facility] C16-[place] (DBS) [Moles/Vol] 0.02 umol/L NINF - 0.10 umol/L [facility] C16:1 (DBS) [Moles/Vol] 0.12 umol/L NINF - 0.19 umol/L [facility] C16:1-[place] (DBS) [Moles/Vol] 0.11 umol/L High NINF - 0.11 umol/L [facility] C18 (DBS) [Moles/Vol] 0.46 umol/L NINF - 1.19 umol/L [facility] C18-[place] (DBS) [Moles/Vol] 0.02 umol/L NINF - 0.04 umol/L [facility] C18:1 (DBS) [Moles/Vol] 0.87 umol/L 0.24 - 2.64 umol/L [facility] C18:1-[place] (DBS) [Moles/Vol] <0.07 NINF - 0.07 umol/L [facility] C18:2 (DBS) [Moles/Vol] 0.25 umol/L NINF - 1.00 umol/L [facility] C18:2-OH (DBS) [Moles/Vol] <0.03 NINF - 0.15 umol/L [facility] C2 (DBS) [Moles/Vol] 10.45 umol/L 2.77 - 30.47 umol/L [facility] C3 (DBS) [Moles/Vol] 1.63 umol/L NINF - 2.35 umol/L [facility] C3-DC (DBS) [Moles/Vol] <0.04 NINF - 0.15 umol/L [facility] C4-DC (DBS) [Moles/Vol] 0.28 umol/L NINF - 0.84 umol/L [facility] C4-[place] (DBS) [Moles/Vol] 0.03 umol/L NINF - 0.21 umol/L [facility] C5-DC (DBS) [Moles/Vol] 0.03 umol/L NINF - 0.11 umol/L [facility] C6 (DBS) [Moles/Vol] 0.05 umol/L NINF - 0.16 umol/L [facility] C8 (DBS) [Moles/Vol] 0.05 umol/L NINF - 0.14 umol/L [facility] C8:1 (DBS) [Moles/Vol] 0.08 umol/L NINF - 0.35 umol/L [facility] Interpretation and review of laboratory results Abnormal [facility] Isobutyrylcarnitine (C4) (DBS) [Moles/Vol] 0.21 umol/L NINF - 0.50 umol/L [facility] Isovalerylcarnitine+Met hylbutyrylcarnitine (C5) (DBS) [Moles/Vol] 0.44 umol/L High NINF - 0.28 umol/L [facility] Service comment 02 (Unsp spec) [Interp] This test was developed and its performance characteristics determined by [facility]. It has not been cleared or approved by the FDA. The laboratory is regulated under CLIA as qualified to perform high complexity testing. This test is used for clinical purposes. It should not be regarded as investigational or for research. [facility] Tiglylcarnitine (C5:1) (DBS) [Moles/Vol] 0.01 umol/L NINF - 0.50 umol/L [facility] Acylcarnitine panelon 2022 3-Hydroxyisovalerylcarn itine (C5-OH) [Moles/Vol] Test ordered in error based on source collected. Appropriate test code has been ordered. NINF - 0.20 umol/L [facility] Comment on above: PER SAMPLE RECVD REO RDERED FPACP SEE 3-Hydroxytetradecenoylc arnitine (C14:1-OH) [Moles/Vol] Test ordered in error based on source collected. Appropriate test code has been ordered. NINF - 0.13 umol/L [facility] Comment on above: PER SAMPLE RECVD REO RDERED FPACP SEE Acylcarnitine pattern [Interp] Test ordered in error based on source collected. Appropriate test code has been ordered. [facility] Comment on above: PER SAMPLE RECVD REO RDERED FPACP SEE Adipoylcarnitine (C6-DC) [Moles/Vol] Test ordered in error based on source collected. Appropriate test code has been ordered. NINF - 0.13 umol/L [facility] Comment on above: PER SAMPLE RECVD REO RDERED FPACP SEE C0 [Moles/Vol] Test ordered in erro r based on source collected. Appropriate test code has been ordered. 22 - 52 umol/L [facility] Comment on above: PER SAMPLE RECVD REO RDERED FPACP SEE C10 [Moles/Vol] Test ordered in erro r based on source collected. Appropriate test code has been ordered. NINF - 1.05 umol/L [facility] Comment on above: PER SAMPLE RECVD REO RDERED FPACP SEE C10:1 [Moles/Vol] Test ordered in erro r based on source collected. Appropriate test code has been ordered. NINF - 0.53 umol/L [facility] Comment on above: PER SAMPLE RECVD REO RDERED FPACP SEE C10:2 [Moles/Vol] Test ordered in erro r based on source collected. Appropriate test code has been ordered. NINF - 0.30 umol/L [facility] Comment on above: PER SAMPLE RECVD REO RDERED FPACP SEE C12 [Moles/Vol] Test ordered in erro r based on source collected. Appropriate test code has been ordered. NINF - 0.34 umol/L [facility] Comment on above: PER SAMPLE RECVD REO RDERED FPACP SEE C12-OH [Moles/Vol] Test ordered in erro r based on source collected. Appropriate test code has been ordered. NINF - 0.09 umol/L [facility] Comment on above: PER SAMPLE RECVD REO RDERED FPACP SEE C12:1 [Moles/Vol] Test ordered in erro r based on source collected. Appropriate test code has been ordered. NINF - 0.35 umol/L [facility] Comment on above: PER SAMPLE RECVD REO RDERED FPACP SEE C14 [Moles/Vol] Test ordered in erro r based on source collected. Appropriate test code has been ordered. NINF - 0.17 umol/L [facility] Comment on above: PER SAMPLE RECVD REO RDERED FPACP SEE C14-OH [Moles/Vol] Test ordered in erro r based on source collected. Appropriate test code has been ordered. NINF - 0.08 umol/L [facility] Comment on above: PER SAMPLE RECVD REO RDERED FPACP SEE C14:1 [Moles/Vol] Test ordered in erro r based on source collected. Appropriate test code has been ordered. NINF - 0.32 umol/L [facility] Comment on above: PER SAMPLE RECVD REO RDERED FPACP SEE C14:2 [Moles/Vol] Test ordered in erro r based on source collected. Appropriate test code has been ordered. NINF - 0.22 umol/L [facility] Comment on above: PER SAMPLE RECVD REO RDERED FPACP SEE C16 [Moles/Vol] Test ordered in erro r based on source collected. Appropriate test code has been ordered. NINF - 0.29 umol/L [facility] Comment on above: PER SAMPLE RECVD REO RDERED FPACP SEE C16-[place] [Moles/Vol] Test ordered in erro r based on source collected. Appropriate test code has been ordered. NINF - 0.06 umol/L [facility] Comment on above: PER SAMPLE RECVD REO RDERED FPACP SEE C16:1 [Moles/Vol] Test ordered in erro r based on source collected. Appropriate test code has been ordered. NINF - 0.10 umol/L [facility] Comment on above: PER SAMPLE RECVD REO RDERED FPACP SEE C16:1-OH [Moles/Vol] Test ordered in err or based on source collected. Appropriate test code has been ordered. NINF - 0.07 umol/L [facility] Comment on above: PER SAMPLE RECVD REO RDERED FPACP SEE C18 [Moles/Vol] Test ordered in erro r based on source collected. Appropriate test code has been ordered. NINF - 0.17 umol/L [facility] Comment on above: PER SAMPLE RECVD REO RDERED FPACP SEE C18-[place] [Moles/Vol] Test ordered in erro r based on source collected. Appropriate test code has been ordered. NINF - 0.07 umol/L [facility] Comment on above: PER SAMPLE RECVD REO RDERED FPACP SEE C18:1 [Moles/Vol] Test ordered in erro r based on source collected. Appropriate test code has been ordered. NINF - 0.43 umol/L [facility] Comment on above: PER SAMPLE RECVD REO RDERED FPACP SEE C18:1-[place] [Moles/Vol] Test ordered in err or based on source collected. Appropriate test code has been ordered. NINF - 0.10 umol/L [facility] Comment on above: PER SAMPLE RECVD REO RDERED FPACP SEE C18:2 [Moles/Vol] Test ordered in erro r based on source collected. Appropriate test code has been ordered. NINF - 0.26 umol/L [facility] Comment on above: PER SAMPLE RECVD REO RDERED FPACP SEE C18:2-[place] [Moles/Vol] Test ordered in err or based on source collected. Appropriate test code has been ordered. NINF - 0.11 umol/L [facility] Comment on above: PER SAMPLE RECVD REO RDERED FPACP SEE C2 [Moles/Vol] Test ordered in erro r based on source collected. Appropriate test code has been ordered. 2.84 - 25.30 umol/L [facility] Comment on above: PER SAMPLE RECVD REO RDERED FPACP SEE C3 [Moles/Vol] Test ordered in erro r based on source collected. Appropriate test code has been ordered. NINF - 1.00 umol/L [facility] Comment on above: PER SAMPLE RECVD REO RDERED FPACP SEE C3-DC [Moles/Vol] Test ordered in erro r based on source collected. Appropriate test code has been ordered. NINF - 0.14 umol/L [facility] Comment on above: PER SAMPLE RECVD REO RDERED FPACP SEE C4-DC [Moles/Vol] Test ordered in erro r based on source collected. Appropriate test code has been ordered. NINF - 0.25 umol/L [facility] Comment on above: PER SAMPLE RECVD REO RDERED FPACP SEE C4-[place] [Moles/Vol] Test ordered in erro r based on source collected. Appropriate test code has been ordered. NINF - 0.40 umol/L [facility] Comment on above: PER SAMPLE RECVD REO RDERED FPACP SEE C5-DC [Moles/Vol] Test ordered in erro r based on source collected. Appropriate test code has been ordered. NINF - 0.18 umol/L [facility] Comment on above: PER SAMPLE RECVD REO RDERED FPACP SEE C6 [Moles/Vol] Test ordered in erro r based on source collected. Appropriate test code has been ordered. NINF - 0.42 umol/L [facility] Comment on above: PER SAMPLE RECVD REO RDERED FPACP SEE C6-[place] [Moles/Vol] Test ordered in erro r based on source collected. Appropriate test code has been ordered. NINF - 0.20 umol/L [facility] Comment on above: PER SAMPLE RECVD REO RDERED FPACP SEE C8 [Moles/Vol] Test ordered in erro r based on source collected. Appropriate test code has been ordered. NINF - 1.00 umol/L [facility] Comment on above: PER SAMPLE RECVD REO RDERED FPACP SEE C8-DC [Moles/Vol] Test ordered in erro r based on source collected. Appropriate test code has been ordered. NINF - 0.10 umol/L [facility] Comment on above: PER SAMPLE RECVD REO RDERED FPACP SEE C8:1 [Moles/Vol] Test ordered in erro r based on source collected. Appropriate test code has been ordered. NINF - 0.97 umol/L [facility] Comment on above: PER SAMPLE RECVD REO RDERED FPACP SEE Carnitine [Moles/Vol] Test ordered in er ror based on source collected. Appropriate test code has been ordered. 27 - 66 umol/L [facility] Comment on above: PER SAMPLE RECVD REO RDERED FPACP SEE Isobutyrylcarnitine (C4) [Moles/Vol] Test ordered in error based on source collected. Appropriate test code has been ordered. NINF - 1.01 umol/L [facility] Comment on above: PER SAMPLE RECVD REO RDERED FPACP SEE Isovalerylcarnitine+Met hylbutyrylcarnitine (C5) [Moles/Vol] Test ordered in error based on source collected. Appropriate test code has been ordered. NINF - 0.65 umol/L [facility] Comment on above: PER SAMPLE RECVD REO RDERED FPACP SEE Service comment 02 (Unsp spec) [Interp] Test ordered in error based on source collected. Appropriate test code has been ordered. [facility] Comment on above: PER SAMPLE RECVD REO RDERED FPACP SEE CORRECTED on 02/14 AT 0956: Result was previously reported as: This test was developed and its performance characteristics determined by [facility]. It has not been cleared or approved by the FDA. The laboratory is regulated under CLIA as qualified to perform high complexity testing. This test is used for clinical purposes. It should not be regarded as investigational or for research. Tiglylcarnitine (C5:1) [Moles/Vol] Test ordered in error based on source collected. Appropriate test code has been ordered. NINF - 0.15 umol/L [facility] Comment on above: PER SAMPLE RECVD REO RDERED FPACP SEE [facility] Albumin Elph [Mass/Vol]Order ed By: Dr. Dozier on 02-07-2023 Albumin [Mass/Vol] 3.7 g/dL 2.9-4.4 [facility] Basophil percentageOrdered B y: Dr. Dozier on 02-07-2023 Basophil percentage Comment . [facility] Comment on above: Bence Davila Protein positive; kappa type.Performed at: - [facility] [id number] Director: Myron Kennedy PhD, Phone: [phone] Chloride [Moles/Vol] 103 mmol/L 98-107 [facility] Glucose [Mass/Vol] 107 mg/dL 74-106 [facility] Comment on above: Fasting Glucose resu lt from 100 to 125 mg/dL suggests IMPAIRED HOMEOSTASIS per A.D.A. criteria. Potassium [Moles/Vol] 5.1 mmol/L 3.5-5.1 [facility] Sodium [Moles/Vol] 134 mmol/L 136-145 [facility] Interpretation of serum or p lasma protein pattern by immunofixation (narrative resultOrdered By: Dr. Dozier on 02-07-2023 Protein Fractions Immunofixation Jamison [Interp] See comment [facility] Comment on above: Result: Not Observed Laboratory - Chemistry and C hemistry - challengeOrdered By: Dr. Dozier on 02-07-2023 CO2 [Moles/Vol] 26.0 mmol/L 21.0-32.0 [facility] Urea nitrogen/Creatinine [Mass ratio] 14.0 mg/mg 10-20 [facility] No Panel InformationOrdered By: Dr. Dozier on 02-07-2023 Addendum Document Comment . [facility] Comment on above: Protein electrophore sis scan will follow via computer,mail, or secondary school registrar delivery. Estimated GFR (MDRD) Amer 37 mL/min >60 [facility] Comment on above: GFR Calc Estimated GFR (MDRD) Non-Af Amer 30 mL/min >60 [facility] Comment on above: Non- GFR Calc Free Lambda Light Chains, Quant 46.9 mg/L 5.7-26.3 [facility] Serum [id number] measu rement by electrophoresisOrdered By: Dr. Dozier on 02-07-2023 Alpha 1 globulin Elph [Mass/Vol] 0.3 g/dL 0.0-0.4 [facility] Alpha 1 globulin Elph [Mass/Vol] 1.1 g/dL 0.4-1.0 [facility] Serum globulin measurement ( mass/volume)Ordered By: Dr. Dozier on 02-07-2023 Globulin (S) [Mass/Vol] 4.2 g/dL 2.2-3.9 [facility] Serum immunoglobulin kappa l ight chains/immunoglobulin lambda light chains mass ratioOrdered By: Dr. Dozier on 02-07-2023 Immunoglobulin light chains.kappa/Immunoglob ulin light chains.lambda (S) [Mass ratio] 1.34 0.26-1.65 [facility] Serum or plasma IgA measurem ent (mass/volume)Ordered By: Dr. Dozier on 02-07-2023 IgA [Mass/Vol] 119 mg/dL 87-352 [facility] Serum or plasma IgG measurem ent (mass/volume)Ordered By: Dr. Dozier on 02-07-2023 IgG [Mass/Vol] 1604 mg/dL [phone] [facility] Serum or plasma IgM measurem ent (mass/volume)Ordered By: Dr. Dozier on 02-07-2023 IgM [Mass/Vol] 58 mg/dL 26-217 [facility] Serum or plasma beta globuli n measurement by electrophoresis (mass/volume)Ordered By: Dr. Dozier on 02-07-2023 Beta globulin Elph [Mass/Vol] 1.2 g/dL 0.7-1.3 [facility] Serum or plasma calcitriol m easurement (mass/volume)Ordered By: Dr. Dozier on 02-07-2023 1,25-dihydroxyvitamin D3 [Mass/Vol] 17.1 pg/mL 24.8-81.5 [facility] Comment on above: Performed at: [address] [id number] Director: Braulio Rubio MD, Phone: [phone] Serum or plasma calcium marivel urement (mass/volume)Ordered By: Dr. Dozier on 02-07-2023 Calcium [Mass/Vol] 9.5 mg/dL 8.5-10.1 [facility] Serum or plasma creatinine m easurement (mass/volume)Ordered By: Dr. Dozier on 02-07-2023 Creatinine [Mass/Vol] 1.78 mg/dL 0.55-1.02 [facility] Comment on above: The validity of the calculated GFR & GFRAA in patients over 70 years has not been determined. Clinical correlation is essential. Serum or plasma gamma globul in measurement by electrophoresis (mass/volume)Ordered By: Dr. Dozier on 02-07-2023 Gamma globulin Elph [Mass/Vol] 1.6 g/dL 0.4-1.8 [facility] Serum or plasma immunoelectr ophoresis interpretation (nominal result)Ordered By: Dr. Dozier on 02-07-2023 Interpretation IEP [Interp] Comment . [facility] Comment on above: No monoclonality det ected. Serum or plasma immunoglobul in kappa light chains measurement (mass/volume)Ordered By: Dr. Dozier on 02-07-2023 Immunoglobulin light chains.kappa [Mass/Vol] 62.9 mg/L 3.3-19.4 [facility] Serum or plasma urea nitroge n measurement (mass/volume)Ordered By: Dr. Dozier on 02-07-2023 Urea nitrogen [Mass/Vol] 25 mg/dL 7-18 [facility] Thin prep Papanicolaou smear with manual screeningOrdered By: Dr. Dozier on 02-07-2023 Thin prep Papanicolaou smear with manual screening 5 5-15 [facility] Thin prep Papanicolaou smear with manual screening 0.9 0.7-1.7 [facility] Total protein bloodOrdered B y: Dr. Dozier on 02-07-2023 Protein [Mass/Vol] 7.9 g/dL 6.0-8.5 [facility] Basophil percentageOrdered B y: Dr. Dozier on 12-07-2022 Basophil percentage Comment: . [facility] Comment on above: Presence of monoclon al protein is unclear at this time. Suggestrepeat in 3 to 6 months if clinically indicated.Performed at: [place] [id number] Director: Myron Kennedy PhD, Phone: [phone] Basophil percentageon 2022 Basophil percentage 3.6 mg/dL 2.5-4.9 [facility] Chloride [Moles/Vol] 97 mmol/L 98-107 [facility] Glucose [Mass/Vol] 120 mg/dL 74-106 [facility] Comment on above: Fasting Glucose resu lt from 100 to 125 mg/dL suggests IMPAIRED HOMEOSTASIS per A.D.A. criteria. Potassium [Moles/Vol] 4.6 mmol/L 3.5-5.1 [facility] Sodium [Moles/Vol] 134 mmol/L 136-145 [facility] Bilirubin Test strip Ql (U)o n 12-07-2022 Bilirubin Ql (U) Negative Negative [facility] Ketones Test strip Ql (U)on 12-07-2022 Ketones Ql (U) Negative Negative [facility] Laboratory - Chemistry and C hemistry - challengeon 12-07-2022 CO2 [Moles/Vol] 28.0 mmol/L 21.0-32.0 [facility] Urea nitrogen/Creatinine [Mass ratio] 12.2 mg/mg 10-20 [facility] Nitrite Test strip Ql (U)on 12-07-2022 Nitrite Ql (U) Negative Negative [facility] No Panel Informationon 12-07 Estimated GFR (MDRD) Amer 46 mL/min >60 [facility] Comment on above: GFR Calc Estimated GFR (MDRD) Non-Af Amer 38 mL/min >60 [facility] Comment on above: Non- GFR Calc Protein Test strip Ql (U)on 12-07-2022 Protein Ql (U) 15 mg/dl Negative [facility] Serum or plasma albumin marivel urement (mass/volume)on 12-07-2022 Albumin [Mass/Vol] 3.3 g/dL 3.2-5.0 [facility] Serum or plasma calcium marivel urement (mass/volume)on 12-07-2022 Calcium [Mass/Vol] 9.4 mg/dL 8.5-10.1 [facility] Serum or plasma creatinine m easurement (mass/volume)on 12-07-2022 Creatinine [Mass/Vol] 1.48 mg/dL 0.55-1.02 [facility] Comment on above: The validity of the calculated GFR & GFRAA in patients over 70 years has not been determined. Clinical correlation is essential. Serum or plasma urea nitroge n measurement (mass/volume)on 12-07-2022 Urea nitrogen [Mass/Vol] 18 mg/dL 7-18 [facility] Urine blood detectionon RBC Ql (U) Negative Negative [facility] Urine clarityon 12-07-2022 Clarity (U) Clear Clear [facility] Urine color determinationon 12-07-2022 Color (U) Yellow Yellow [facility] Urine creatinine measurement (mass/volume)on 12-07-2022 Creatinine (U) [Mass/Vol] 43.10 mg/dL NO RANGE EST. [facility] Urine glucose detectionon Glucose Ql (U) Normal mg/dl Normal [facility] Urine leukocyte esterase det ection by dipstickon 12-07-2022 Leukocyte esterase Test strip Ql (U) Negative Negative [facility] Urine pHon 12-07-2022 pH (U) 7.0 [pH] 5.0 - 8.0 [facility] Urine protein measurement (m ass/volume)on 12-07-2022 Protein (U) [Mass/Vol] 13.8 mg/dL 0.0-11.8 [facility] Urine protein/creatinine mas s ratioon 12-07-2022 Protein/Creatinine (U) [Mass ratio] 320 mg/g CRE 0-200 [facility] Urine specific gravity measu rementon 12-07-2022 Specific gravity (U) [Rel density] 1.010 1.002-1.030 [facility] Urobilinogen Auto test strip Ql (U)on 12-07-2022 Urobilinogen Ql (U) Normal mg/dl Normal [facility] Albumin Elph [Mass/Vol]Order ed By: Dr. Dozier on 12-01-2022 Albumin [Mass/Vol] 3.5 g/dL 2.9-4.4 [facility] Basophil percentageOrdered B y: Dr. Dozier on 12-01-2022 Chloride [Moles/Vol] 89 mmol/L 98-107 [facility] Glucose [Mass/Vol] 109 mg/dL 74-106 [facility] Comment on above: Fasting Glucose resu lt from 100 to 125 mg/dL suggests IMPAIRED HOMEOSTASIS per A.D.A. criteria. Potassium [Moles/Vol] 3.5 mmol/L 3.5-5.1 [facility] Sodium [Moles/Vol] 125 mmol/L 136-145 [facility] Interpretation of serum or p lasma protein pattern by immunofixation (narrative resultOrdered By: Dr. Dozier on 12-01-2022 Protein Fractions Immunofixation Jamison [Interp] See comment [facility] Comment on above: NOT OBSERVED Iron measurement (mass/mass) Ordered By: Dr. Dozier on 12-01-2022 Iron (Unsp spec) [Mass/Mass] 19 ug/dL 50-170 [facility] Laboratory - Chemistry and C hemistry - challengeOrdered By: Dr. Dozier on 12-01-2022 CO2 [Moles/Vol] 22.0 mmol/L 21.0-32.0 [facility] Urea nitrogen/Creatinine [Mass ratio] 13.1 mg/mg 10-20 [facility] No Panel InformationOrdered By: Dr. Dozier on 12-01-2022 Addendum Document Comment . [facility] Comment on above: Protein electrophore sis scan will follow via computer,mail, or secondary school registrar delivery.Performed at: [facility] [id number] Director: Myron Kennedy PhD, Phone: [phone] Estimated GFR (MDRD) Amer 25 mL/min >60 [facility] Comment on above: GFR Calc Estimated GFR (MDRD) Non-Af Amer 21 mL/min >60 [facility] Comment on above: Non- GFR Calc Serum [id number] measu rement by electrophoresisOrdered By: Dr. Dozier on 12-01-2022 Alpha 1 globulin Elph [Mass/Vol] 0.3 g/dL 0.0-0.4 [facility] Alpha 1 globulin Elph [Mass/Vol] 1.1 g/dL 0.4-1.0 [facility] Serum globulin measurement ( mass/volume)Ordered By: Dr. Dozier on 12-01-2022 Globulin (S) [Mass/Vol] 3.5 g/dL 2.2-3.9 [facility] Serum or plasma IgA measurem ent (mass/volume)Ordered By: Dr. Dozier on 12-01-2022 IgA [Mass/Vol] 107 mg/dL 87-352 [facility] Serum or plasma IgG measurem ent (mass/volume)Ordered By: Dr. Dozier on 12-01-2022 IgG [Mass/Vol] 1343 mg/dL [phone] [facility] Serum or plasma IgM measurem ent (mass/volume)Ordered By: Dr. Dozier on 12-01-2022 IgM [Mass/Vol] 42 mg/dL 26-217 [facility] Serum or plasma beta globuli n measurement by electrophoresis (mass/volume)Ordered By: Dr. Dozier on 12-01-2022 Beta globulin Elph [Mass/Vol] 1.0 g/dL 0.7-1.3 [facility] Serum or plasma calcitriol m easurement (mass/volume)Ordered By: Dr. Dozier on 12-01-2022 1,25-dihydroxyvitamin D3 [Mass/Vol] 32.2 pg/mL 24.8-81.5 [facility] Comment on above: Performed at: - [address] [id number] Director: Braulio Rubio MD, Phone: [phone] Serum or plasma calcium marivel urement (mass/volume)Ordered By: Dr. Dozier on 12-01-2022 Calcium [Mass/Vol] 8.9 mg/dL 8.5-10.1 [facility] Serum or plasma creatinine m easurement (mass/volume)Ordered By: Dr. Dozier on 12-01-2022 Creatinine [Mass/Vol] 2.51 mg/dL 0.55-1.02 [facility] Comment on above: The validity of the calculated GFR & GFRAA in patients over 70 years has not been determined. Clinical correlation is essential. Serum or plasma ferritin josé miguel surement (mass/volume)Ordered By: Dr. Dozier on 12-01-2022 Ferritin [Mass/Vol] 70 ng/mL 8-252 [facility] Serum or plasma gamma globul in measurement by electrophoresis (mass/volume)Ordered By: Dr. Dozier on 12-01-2022 Gamma globulin Elph [Mass/Vol] 1.2 g/dL 0.4-1.8 [facility] Serum or plasma immunoelectr ophoresis interpretation (nominal result)Ordered By: Dr. Dozier on 12-01-2022 Interpretation IEP [Interp] Comment: . [facility] Comment on above: Presence of monoclon al protein is unclear at this time. Suggestrepeat in 3 to 6 months if clinically indicated. Serum or plasma urea nitroge n measurement (mass/volume)Ordered By: Dr. Dozier on 12-01-2022 Urea nitrogen [Mass/Vol] 33 mg/dL 7-18 [facility] Thin prep Papanicolaou smear with manual screeningOrdered By: Dr. Dozier on 12-01-2022 Thin prep Papanicolaou smear with manual screening 14 5-15 [facility] Thin prep Papanicolaou smear with manual screening 1.1 0.7-1.7 [facility] Total protein bloodOrdered B y: Dr. Dozier on 12-01-2022 Protein [Mass/Vol] 7.0 g/dL 6.0-8.5 [facility] Absolute lymphocyte countOrd ered By: Dr. Dozier on 10-06-2022 Lymphocytes Auto (Unsp spec) [#/Vol] 2.62 10*3/uL 0.83-4.51 [facility] Basophil percentageOrdered B y: Dr. Dozier on 10-06-2022 Basophils/100 WBC (Bld) 0.9 % 0-1 [facility] Bilirubin [Mass/Vol] 0.20 mg/dL 0.20-1.00 [facility] Comment on above: For patients on eltr ombopag therapy, use of Dimension [place] TBIL is not recommended. Chloride [Moles/Vol] 101 mmol/L 98-107 [facility] Eosinophils/100 WBC (Bld) 2.2 % 0-5 [facility] Glucose [Mass/Vol] 96 mg/dL 74-106 [facility] Neutrophils (Bld) [#/Vol] 7.5 10*3/uL 2.0-7.7 [facility] Neutrophils/100 WBC (Bld) 66.2 % 47-70 [facility] Potassium [Moles/Vol] 5.4 mmol/L 3.5-5.1 [facility] Protein [Mass/Vol] 8.2 g/dL 6.4-8.2 [facility] Sodium [Moles/Vol] 135 mmol/L 136-145 [facility] WBC (Bld) [#/Vol] 11.3 10*3/uL 4.4-11.0 [facility] Blood erythrocytes count (nu mber/volume)Ordered By: Dr. Dozier on 10-06-2022 RBC (Bld) [#/Vol] 4.86 10*6/uL 4.2-5.4 [facility] Blood hemoglobin measurement (mass/volume)Ordered By: Dr. Dozier on 10-06-2022 Hemoglobin (Bld) [Mass/Vol] 11.5 g/dL 12.0-15.0 [facility] Blood lymphocytes/100 leukoc ytesOrdered By: Dr. Dozier on 10-06-2022 Lymphocytes/100 WBC (Bld) 23.2 % 19-41 [facility] Blood monocytes/100 leukocyt esOrdered By: Dr. Dozier on 10-06-2022 Monocytes/100 WBC (Bld) 7.3 % 0-10 [facility] Blood platelet mean volumeOr dered By: Dr. Dozier on 10-06-2022 Platelet mean volume (Bld) [Entitic vol] 10.6 fL 6.2-12.0 [facility] Determination of erythrocyte mean corpuscular volume (MCV)Ordered By: Dr. Dozier on 10-06-2022 MCV (RBC) [Entitic vol] 79.8 fL 81-99 [facility] Hematocrit Auto (Bld) [Volum e fraction]Ordered By: Dr. Dozier on 10-06-2022 Hematocrit (Bld) [Volume fraction] 38.8 % 37-47 [facility] Laboratory - Chemistry and C hemistry - challengeOrdered By: Dr. Dozier on 10-06-2022 ALP [Catalytic activity/Vol] 84 U/L 45-117 [facility] ALT [Catalytic activity/Vol] 25 U/L 13-56 [facility] CO2 [Moles/Vol] 25.0 mmol/L 21.0-32.0 [facility] Globulin (S) [Mass/Vol] 4.3 g/dL 2.2-4.2 [facility] Urea nitrogen/Creatinine [Mass ratio] 11.6 mg/mg 10-20 [facility] Laboratory - Hematology and Cell countsOrdered By: Dr. Dozier on 10-06-2022 Erythrocyte distribution width (RBC) [Entitic vol] 48.3 fL 35.1-43.9 [facility] Erythrocyte distribution width (RBC) [Ratio] 16.7 % 11.6-14.6 [facility] Immature granulocytes/100 WBC (Bld) 0.200 % 0.0-0.9 [facility] Comment on above: IG% - Immature Granu locytes (promyelocytes, myelocytes and metamyelocytes) > 1% indicates that a LEFT SHIFT is Present. MCH (RBC) [Entitic mass] 23.7 pg 27.0-32.0 [facility] Nucleated RBC/100 WBC (Bld) [Ratio] 0 % 0-5 [facility] Auto (RBC) [Mass/Vol]Or dered By: Dr. Dozier on 10-06-2022 MCHC (RBC) [Mass/Vol] 29.6 g/dL 32-36 [facility] No Panel InformationOrdered By: Dr. Dozier on 10-06-2022 Estimated GFR (MDRD) Amer 34 mL/min >60 [facility] Comment on above: GFR Calc Estimated GFR (MDRD) Non-Af Amer 28 mL/min >60 [facility] Comment on above: Non- GFR Calc Free Lambda Light Chains, Quant 41.7 mg/L 5.7-26.3 [facility] Thyroid Stimulating Hormone (TSH) 0.42 uIU/mL 0.358-3.74 [facility] Vitamin B12 Level > 2000 pg/mL 211-911 [facility] Whole Blood Vitamin B1 Level 146.3 nmol/L 66.5-200.0 [facility] Comment on above: Performed at: [facility] [address] [id number] Director: Myron Kennedy PhD, Phone: [phone] at: - [facility] [id number] Director: Braulio Rubio MD, Phone: [phone] Platelets bldOrdered By: Dr. Dozier on 10-06-2022 Platelets (Bld) [#/Vol] 513 10*3/uL 150-450 [facility] Serum immunoglobulin kappa l ight chains/immunoglobulin lambda light chains mass ratioOrdered By: Dr. Dozier on 10-06-2022 Immunoglobulin light chains.kappa/Immunoglob ulin light chains.lambda (S) [Mass ratio] 1.34 0.26-1.65 [facility] Serum or plasma albumin marivel urement (mass/volume)Ordered By: Dr. Dozier on 10-06-2022 Albumin [Mass/Vol] 3.9 g/dL 3.2-5.0 [facility] Serum or plasma albumin/glob ulin mass ratioOrdered By: Dr. Dozier on 10-06-2022 Albumin/Globulin [Mass ratio] 0.9 {ratio} 0.9-2.4 [facility] Serum or plasma calcium marivel urement (mass/volume)Ordered By: Dr. Dozier on 10-06-2022 Calcium [Mass/Vol] 9.4 mg/dL 8.5-10.1 [facility] Serum or plasma creatinine m easurement (mass/volume)Ordered By: Dr. Dozier on 10-06-2022 Creatinine [Mass/Vol] 1.90 mg/dL 0.55-1.02 [facility] Comment on above: The validity of the calculated GFR & GFRAA in patients over 70 years has not been determined. Clinical correlation is essential. Serum or plasma folate measu rement (mass/volume)Ordered By: Dr. Dozier on 10-06-2022 Folate [Mass/Vol] 6.60 ng/mL 3.1-55.4 [facility] Serum or plasma immunoglobul in kappa light chains measurement (mass/volume)Ordered By: Dr. Dozier on 10-06-2022 Immunoglobulin light chains.kappa [Mass/Vol] 55.8 mg/L 3.3-19.4 [facility] Serum or plasma urea nitroge n measurement (mass/volume)Ordered By: Dr. Dozier on 10-06-2022 Urea nitrogen [Mass/Vol] 22 mg/dL 7-18 [facility] Thin prep Papanicolaou smear with manual screeningOrdered By: Dr. Dozier on 10-06-2022 Thin prep Papanicolaou smear with manual screening 16 U/L 15-37 [facility] Thin prep Papanicolaou smear with manual screening 9 5-15 [facility] Comprehensive metabolic 2000 panelon 07-08-2022 Albumin [Mass/Vol] 3.8 g/dL 3.2 - 5.2 g/dL [facility] ALP [Catalytic activity/Vol] 108 U/L 40 - 150 U/L [facility] ALT [Catalytic activity/Vol] 34 U/L 14 - 65 U/L [facility] Anion gap [Moles/Vol] 13 mmol/L 10 - 2 0 mmol/L [facility] AST [Catalytic activity/Vol] 28 U/L 0 - 45 U/L [facility] Bilirubin [Mass/Vol] 0.2 mg/dL 0 - 1.3 mg/dL [facility] Calcium [Mass/Vol] 8.7 mg/dL 8.4 - 10. 2 mg/dL [facility] Chloride [Moles/Vol] 99 mmol/L 98 - 10 8 mmol/L [facility] Creatinine [Mass/Vol] 1.93 mg/dL High 0.60 - 1.20 mg/dL [facility] GFR/1.73 sq M.predicted CKD-EPI (S/P/Bld) [Vol rate/Area] 29 Low - PINF [facility] Comment on above: Estimated GFR was ca lculated using the 2020 CKD-EPI creatinine equation. Glucose [Mass/Vol] 110 mg/dL High 65 - 99 mg/dL [facility] HCO3 [Moles/Vol] 27 mmol/L 21 - 32 mmol/L [facility] Potassium [Moles/Vol] 5.2 mmol/L High 3.5 - 5.1 mmol/L [facility] Protein [Mass/Vol] 7.8 g/dL 6 - 8 g/dL [facility] alth Sodium [Moles/Vol] 134 mmol/L Low 135 - 145 mmol/L [facility] Urea nitrogen [Mass/Vol] 27 mg/dL High 8 - 25 mg/dL [facility] Urea nitrogen/Creatinine [Mass ratio] 14.0 mg/mg 10 - 20 [facility] has implemented the eGFR calculation approach that does not have a coefficient for race that conforms to the NKF-ASN Task Force Recommendations. [facility] NT Pro BNPon 07-08-2022 Natriuretic peptide.B prohormone N-Terminal [Mass/Vol] 369 pg/mL High 0 - 300 pg/mL [facility] Natriuretic peptide.B prohor curly N-Terminal [Mass/Vol]on 07-08-2022 Pride Study Cut-offs Rule In: < /= 50 Years >450 pg/mL 51 Years - 75 Years >900 pg/mL 76 Years - 99 Years >1800 pg/mL Rule Out: All patients <300 pg/mL [facility] No Panel Informationon 07-08 Interpretation and review of laboratory results Abnormal [facility] CBC Auto Differentialon 06-07 Basophils (Bld) [#/Vol] 0.09 10*3/uL [facility] Basophils/100 WBC (Bld) 0.8 % [facility] Eosinophils (Bld) [#/Vol] 0.46 10*3/uL [facility] Eosinophils/100 WBC (Bld) 4.1 % [facility] Erythrocyte distribution width (RBC) [Entitic vol] 16.0 % High 11.6 - 14.8 % [facility] Hematocrit (Bld) [Volume fraction] 31.2 % Low 36 - 46 % [facility] Hemoglobin (Bld) [Mass/Vol] 9.1 g/dL Low 12 - 16 g/dL [facility] Immature granulocytes (Bld) [#/Vol] 0.24 10*3/uL [facility] Immature granulocytes/100 WBC (Bld) 2.10 % [facility] Comment on above: The IG parameter is the percentage of metamyelocytes, myelocytes and promyelocytes. An immature granulocyte count (IG) of 1% or more suggests the possibility of infection, an IG count of 3% is very likely related to an infection. Interpretation and review of laboratory results Abnormal [facility] Lymphocytes (Bld) [#/Vol] 2.12 10*3/uL [facility] Lymphocytes/100 WBC (Bld) 18.8 % [facility] MCH (RBC) [Entitic mass] 24.3 pg Low 26 - 34 pg [facility] MCHC (RBC) [Mass/Vol] 29.2 g/dL Low 31 - 37 g/dL [facility] MCV (RBC) [Entitic vol] 83.2 fL 80 - 100 fL [facility] Monocytes (Bld) [#/Vol] 1.08 10*3/uL High [facility] Monocytes/100 WBC (Bld) 9.6 % [facility] Neutrophils (Bld) [#/Vol] 7.26 10*3/uL High [facility] Neutrophils/100 WBC (Bld) 64.6 % [facility] Nucleated RBC (Bld) [#/Vol] 0.00 10*3/uL [facility] Nucleated RBC/100 WBC (Bld) [Ratio] 0.0 % [facility] Platelet mean volume (Bld) [Entitic vol] 9.9 fL 9.4 - 12.4 fL [facility] Platelets (Bld) [#/Vol] 423 10*3/uL High [facility] RBC (Bld) [#/Vol] 3.75 10*6/uL Low [facility] ealth WBC (Bld) [#/Vol] 11.25 10*3/uL High [facility] CK [Catalytic activity/Vol]o n 06-29-2022 Interpretation and review of laboratory results Abnormal [facility] CPK NO MBon 06-29-2022 CK [Catalytic activity/Vol] 698 U/L High 40 - 170 U/L [facility] Glucose (Bld) [Mass/Vol]on 0 06-29-2022 Glucose [Mass/Vol] 94 mg/dL 65 - 99 mg/dL [facility] Interpretation and review of laboratory results Normal [facility] Magnesium Levelon 06-29-2022 Magnesium [Mass/Vol] 1.8 mg/dL 1.6 - 2 .4 mg/dL [facility] Magnesium [Mass/Vol]on 06-29 Interpretation and review of laboratory results Normal [facility] Renal function 2000 panelon 06-29-2022 Albumin [Mass/Vol] 2.9 g/dL Low 3.2 - 5.2 g/dL [facility] Anion gap [Moles/Vol] 13 mmol/L 10 - 2 0 mmol/L [facility] Calcium [Mass/Vol] 8.0 mg/dL Low 8.4 - 10. 2 mg/dL [facility] Chloride [Moles/Vol] 106 mmol/L 98 - 10 8 mmol/L [facility] Creatinine [Mass/Vol] 1.85 mg/dL High 0.60 - 1.20 mg/dL [facility] GFR/1.73 sq M.predicted CKD-EPI (S/P/Bld) [Vol rate/Area] 30 Low - PINF [facility] Comment on above: Estimated GFR was ca lculated using the 2020 CKD-EPI creatinine equation. Glucose [Mass/Vol] 91 mg/dL 65 - 99 mg/dL [facility] HCO3 [Moles/Vol] 25 mmol/L 21 - 32 mmol/L [facility] Interpretation and review of laboratory results Abnormal [facility] Phosphate [Mass/Vol] 5.4 mg/dL High 2.8 - 4 .1 mg/dL [facility] Potassium [Moles/Vol] 5.1 mmol/L 3.5 - 5.1 mmol/L [facility] Sodium [Moles/Vol] 139 mmol/L 135 - 145 mmol/L [facility] Urea nitrogen [Mass/Vol] 26 mg/dL High 8 - 25 mg/dL [facility] Urea nitrogen/Creatinine [Mass ratio] 14.1 mg/mg 10 - 20 [facility] has implemented the eGFR calculation approach that does not have a coefficient for race that conforms to the NKF-ASN Task Force Recommendations. [facility] CBC Auto Differentialon 06-07 Basophils (Bld) [#/Vol] 0.06 10*3/uL [facility] Basophils/100 WBC (Bld) 0.5 % [facility] Eosinophils (Bld) [#/Vol] 0.09 10*3/uL [facility] Eosinophils/100 WBC (Bld) 0.8 % [facility] Erythrocyte distribution width (RBC) [Entitic vol] 15.9 % High 11.6 - 14.8 % [facility] Hematocrit (Bld) [Volume fraction] 29.0 % Low 36 - 46 % [facility] Hemoglobin (Bld) [Mass/Vol] 8.9 g/dL Low 12 - 16 g/dL [facility] Immature granulocytes (Bld) [#/Vol] 0.31 10*3/uL High [facility] Immature granulocytes/100 WBC (Bld) 2.60 % [facility] Comment on above: The IG parameter is the percentage of metamyelocytes, myelocytes and promyelocytes. An immature granulocyte count (IG) of 1% or more suggests the possibility of infection, an IG count of 3% is very likely related to an infection. Interpretation and review of laboratory results Abnormal [facility] Lymphocytes (Bld) [#/Vol] 1.98 10*3/uL [facility] Lymphocytes/100 WBC (Bld) 16.8 % [facility] MCH (RBC) [Entitic mass] 24.5 pg Low 26 - 34 pg [facility] MCHC (RBC) [Mass/Vol] 30.7 g/dL Low 31 - 37 g/dL [facility] MCV (RBC) [Entitic vol] 79.9 fL Low 80 - 100 fL [facility] Monocytes (Bld) [#/Vol] 0.99 10*3/uL High [facility] Monocytes/100 WBC (Bld) 8.4 % [facility] Neutrophils (Bld) [#/Vol] 8.39 10*3/uL High [facility] Neutrophils/100 WBC (Bld) 70.9 % [facility] Nucleated RBC (Bld) [#/Vol] 0.00 10*3/uL [facility] Nucleated RBC/100 WBC (Bld) [Ratio] 0.0 % [facility] Platelet mean volume (Bld) [Entitic vol] 9.3 fL Low 9.4 - 12.4 fL [facility] Platelets (Bld) [#/Vol] 406 10*3/uL High [facility] RBC (Bld) [#/Vol] 3.63 10*6/uL Low [facility] ealth WBC (Bld) [#/Vol] 11.82 10*3/uL High [facility] CK [Catalytic activity/Vol]o n 06-28-2022 Interpretation and review of laboratory results Abnormal [facility] CPK NO MBon 06-28-2022 CK [Catalytic activity/Vol] 1164 U/L High 40 - 170 U/L [facility] Glucose (Bld) [Mass/Vol]on 0 06-28-2022 Glucose [Mass/Vol] 118 mg/dL High 65 - 99 mg/dL [facility] Interpretation and review of laboratory results Abnormal [facility] Glucose [Mass/Vol] 99 mg/dL 65 - 99 mg/dL [facility] Interpretation and review of laboratory results Normal [facility] Glucose [Mass/Vol] 82 mg/dL 65 - 99 mg/dL [facility] Interpretation and review of laboratory results Normal [facility] Glucose [Mass/Vol] 83 mg/dL 65 - 99 mg/dL [facility] Interpretation and review of laboratory results Normal [facility] Hepatic function 2000 panelo n 06-28-2022 Albumin [Mass/Vol] 2.8 g/dL Low 3.2 - 5.2 g/dL [facility] ALP [Catalytic activity/Vol] 82 U/L 40 - 150 U/L [facility] ALT [Catalytic activity/Vol] 97 U/L High 14 - 65 U/L [facility] AST [Catalytic activity/Vol] 64 U/L High 0 - 45 U/L [facility] Bilirubin [Mass/Vol] 0.2 mg/dL 0 - 1.3 mg/dL [facility] Bilirubin.conjugated [Mass/Vol] mg/dL 0 - 0.4 mg/dL [facility] Interpretation and review of laboratory results Abnormal [facility] Protein [Mass/Vol] 6.1 g/dL 6 - 8 g/dL [facility] Iron Study with Ferritinon 0 06-28-2022 Ferritin [Mass/Vol] 46 ng/mL 13 - 150 ng/mL [facility] Interpretation and review of laboratory results Abnormal [facility] Iron [Mass/Vol] 40 ug/dL [facility] Iron binding capacity [Mass/Vol] 255 [facility] Iron saturation [Mass fraction] 16 % Low 20 - 50 % [facility] Lipaseon 06-28-2022 Lipase [Catalytic activity/Vol] 228 U/L 73 - 393 U/L [facility] Lipase [Catalytic activity/V ol]on 06-28-2022 Interpretation and review of laboratory results Normal [facility] Magnesium Levelon 06-28-2022 Magnesium [Mass/Vol] 1.4 mg/dL Low 1.6 - 2 .4 mg/dL [facility] Magnesium [Mass/Vol]on 06-28 Interpretation and review of laboratory results Abnormal [facility] Renal function 2000 panelon 06-28-2022 Albumin [Mass/Vol] 2.9 g/dL Low 3.2 - 5.2 g/dL [facility] Anion gap [Moles/Vol] 12 mmol/L 10 - 2 0 mmol/L [facility] Calcium [Mass/Vol] 8.0 mg/dL Low 8.4 - 10. 2 mg/dL [facility] Chloride [Moles/Vol] 104 mmol/L 98 - 10 8 mmol/L [facility] Creatinine [Mass/Vol] 1.85 mg/dL High 0.60 - 1.20 mg/dL [facility] GFR/1.73 sq M.predicted CKD-EPI (S/P/Bld) [Vol rate/Area] 30 Low - PINF [facility] Comment on above: Estimated GFR was ca lculated using the 2020 CKD-EPI creatinine equation. Glucose [Mass/Vol] 92 mg/dL 65 - 99 mg/dL [facility] HCO3 [Moles/Vol] 27 mmol/L 21 - 32 mmol/L [facility] Interpretation and review of laboratory results Abnormal [facility] Phosphate [Mass/Vol] 5.2 mg/dL High 2.8 - 4 .1 mg/dL [facility] Potassium [Moles/Vol] 4.7 mmol/L 3.5 - 5.1 mmol/L [facility] Sodium [Moles/Vol] 138 mmol/L 135 - 145 mmol/L [facility] Urea nitrogen [Mass/Vol] 29 mg/dL High 8 - 25 mg/dL [facility] Urea nitrogen/Creatinine [Mass ratio] 15.7 mg/mg 10 - 20 [facility] has implemented the eGFR calculation approach that does not have a coefficient for race that conforms to the NKF-ASN Task Force Recommendations. [facility] Tissue Transglutaminase, IgA on 06-28-2022 Interpretation and review of laboratory results Normal [facility] Tissue Transglutaminase, IgA [facility] Comment on above: Reference Ranges: <20 CU Negative 20-30 CU Weak Positive >30 CU Positive The following results were obtained with the [employer] Flash h-tTG IgA chemiluminescent immunoassay. Values obtained with different manufacturers' assay methods may not be used interchangeably. [facility] CBC Auto Differentialon 06-07 Basophils (Bld) [#/Vol] 0.04 10*3/uL [facility] Basophils/100 WBC (Bld) 0.3 % [facility] Eosinophils (Bld) [#/Vol] 0.01 10*3/uL [facility] Eosinophils/100 WBC (Bld) 0.1 % [facility] Erythrocyte distribution width (RBC) [Entitic vol] 15.8 % High 11.6 - 14.8 % [facility] Hematocrit (Bld) [Volume fraction] 29.5 % Low 36 - 46 % [facility] Hemoglobin (Bld) [Mass/Vol] 9.0 g/dL Low 12 - 16 g/dL [facility] Immature granulocytes (Bld) [#/Vol] 0.17 10*3/uL [facility] Immature granulocytes/100 WBC (Bld) 1.30 % [facility] Comment on above: The IG parameter is the percentage of metamyelocytes, myelocytes and promyelocytes. An immature granulocyte count (IG) of 1% or more suggests the possibility of infection, an IG count of 3% is very likely related to an infection. Interpretation and review of laboratory results Abnormal [facility] Lymphocytes (Bld) [#/Vol] 1.07 10*3/uL [facility] Lymphocytes/100 WBC (Bld) 8.3 % [facility] MCH (RBC) [Entitic mass] 24.1 pg Low 26 - 34 pg [facility] MCHC (RBC) [Mass/Vol] 30.5 g/dL Low 31 - 37 g/dL [facility] MCV (RBC) [Entitic vol] 79.1 fL Low 80 - 100 fL [facility] Monocytes (Bld) [#/Vol] 0.94 10*3/uL High [facility] Monocytes/100 WBC (Bld) 7.3 % [facility] [#/Vol] 10.63 10*3/uL High [facility] Neutrophils/100 WBC (Bld) 82.7 % [facility] Nucleated RBC (Bld) [#/Vol] 0.00 10*3/uL [facility] Nucleated RBC/100 WBC (Bld) [Ratio] 0.0 % [facility] Platelet mean volume (Bld) [Entitic vol] 9.7 fL 9.4 - 12.4 fL [facility] Platelets (Bld) [#/Vol] 379 10*3/uL [facility] RBC (Bld) [#/Vol] 3.73 10*6/uL Low [facility] ealt WBC (Bld) [#/Vol] 12.86 10*3/uL [facility] CK [Catalytic activity/Vol]o n 06-27-2022 Interpretation and review of laboratory results Abnormal [facility] CPK NO MBon 06-27-2022 CK [Catalytic activity/Vol] 918 U/L High 40 - 170 U/L [facility] Glucose (Bld) [Mass/Vol]on 0 06-27-2022 Glucose [Mass/Vol] 126 mg/dL High 65 - 99 mg/dL [facility] Interpretation and review of laboratory results Abnormal [facility] Glucose [Mass/Vol] 162 mg/dL High 65 - 99 [facility]/dL [facility] Interpretation and review of laboratory results Abnormal [facility] Glucose [Mass/Vol] 112 mg/dL High 65 - 99 mg/dL [facility] Interpretation and review of laboratory results Abnormal [facility] Magnesium Levelon 06-27-2022 Magnesium [Mass/Vol] 1.6 mg/dL 1.6 - 2 .4 mg/dL [facility] Magnesium [Mass/Vol]on 06-27 Interpretation and review of laboratory results Normal [facility] Renal function 2000 panelon 06-27-2022 Albumin [Mass/Vol] 3.0 g/dL Low 3.2 - 5.2 g/dL [facility] Anion gap [Moles/Vol] 11 mmol/L 10 - 2 0 mmol/L [facility] Calcium [Mass/Vol] 8.6 mg/dL 8.4 - 10. 2 mg/dL [facility] Chloride [Moles/Vol] 101 mmol/L 98 - 10 8 mmol/L [facility] Creatinine [Mass/Vol] 1.85 mg/dL High 0.60 - 1.20 mg/dL [facility] GFR/1.73 sq M.predicted CKD-EPI (S/P/Bld) [Vol rate/Area] 30 Low - PINF [facility] Comment on above: Estimated GFR was ca lculated using the 2020 CKD-EPI creatinine equation. Glucose [Mass/Vol] 104 mg/dL High 65 - 99 mg/dL [facility] HCO3 [Moles/Vol] 27 mmol/L 21 - 32 mmol/L [facility] Interpretation and review of laboratory results Abnormal [facility] Phosphate [Mass/Vol] 3.7 mg/dL 2.8 - 4 .1 mg/dL [facility] Potassium [Moles/Vol] 4.4 mmol/L 3.5 - 5.1 mmol/L [facility] Sodium [Moles/Vol] 135 mmol/L 135 - 145 mmol/L [facility] Urea nitrogen [Mass/Vol] 28 mg/dL High 8 - 25 mg/dL [facility] Urea nitrogen/Creatinine [Mass ratio] 15.1 mg/mg 10 - 20 [facility] has implemented the eGFR calculation approach that does not have a coefficient for race that conforms to the NKF-ASN Task Force Recommendations. [facility] Bacteria identified Cx Nom ( Bld)on 06-26-2022 Interpretation and review of laboratory results Normal [facility] CBC Auto Differentialon 06-07 Basophils (Bld) [#/Vol] 0.06 10*3/uL [facility] Basophils/100 WBC (Bld) 0.6 % [facility] Eosinophils (Bld) [#/Vol] 0.24 10*3/uL [facility] Eosinophils/100 WBC (Bld) 2.4 % [facility] Erythrocyte distribution width (RBC) [Entitic vol] 15.8 % High 11.6 - 14.8 % [facility] Hematocrit (Bld) [Volume fraction] 31.1 % Low 36 - 46 % [facility] Hemoglobin (Bld) [Mass/Vol] 9.6 g/dL Low 12 - 16 g/dL [facility] Immature granulocytes (Bld) [#/Vol] 0.11 10*3/uL [facility] Immature granulocytes/100 WBC (Bld) 1.10 % [facility] Comment on above: The IG parameter is the percentage of metamyelocytes, myelocytes and promyelocytes. An immature granulocyte count (IG) of 1% or more suggests the possibility of infection, an IG count of 3% is very likely related to an infection. Interpretation and review of laboratory results Abnormal [facility] Lymphocytes (Bld) [#/Vol] 1.22 10*3/uL [facility] Lymphocytes/100 WBC (Bld) 12.2 % [facility] MCH (RBC) [Entitic mass] 24.6 pg Low 26 - 34 pg [facility] MCHC (RBC) [Mass/Vol] 30.9 g/dL Low 31 - 37 g/dL [facility] MCV (RBC) [Entitic vol] 79.7 fL Low 80 - 100 fL [facility] Monocytes (Bld) [#/Vol] 0.84 10*3/uL [facility] Monocytes/100 WBC (Bld) 8.4 % [facility] Neutrophils (Bld) [#/Vol] 7.57 10*3/uL High [facility] Neutrophils/100 WBC (Bld) 75.3 % [facility] Nucleated RBC (Bld) [#/Vol] 0.00 10*3/uL [facility] Nucleated RBC/100 WBC (Bld) [Ratio] 0.0 % [facility] Platelet mean volume (Bld) [Entitic vol] 9.8 fL 9.4 - 12.4 fL [facility] Platelets (Bld) [#/Vol] 400 10*3/uL [facility] RBC (Bld) [#/Vol] 3.90 10*6/uL Low [facility] WBC (Bld) [#/Vol] 9.89 10*3/uL [facility] CK [Catalytic activity/Vol]o n 06-26-2022 Interpretation and review of laboratory results Abnormal [facility] CPK NO MBon 06-26-2022 CK [Catalytic activity/Vol] 1703 U/L High 40 - 170 U/L [facility] Glucose (Bld) [Mass/Vol]on 0 06-26-2022 Glucose [Mass/Vol] 225 mg/dL High 65 - 99 mg/dL [facility] Interpretation and review of laboratory results Abnormal [facility] Glucose [Mass/Vol] 134 mg/dL High 65 - 99 mg/dL [facility] Interpretation and review of laboratory results Abnormal [facility] Glucose [Mass/Vol] 121 mg/dL High 65 - 99 mg/dL [facility] Interpretation and review of laboratory results Abnormal [facility] Glucose [Mass/Vol] 109 mg/dL High 65 - 99 mg/dL [facility] Interpretation and review of laboratory results Abnormal [facility] Laboratory - Microbiology an d Antimicrobial susceptibilityon 06-26-2022 Bacteria identified Cx Nom (Bld) [facility]26-[facility]22 Magnesium [Mass/Vol] 1.6 mg/dL 1.6 - 2 .4 mg/dL [facility] Magnesium [Mass/Vol]on 06-26 Interpretation and review of laboratory results Normal [facility] Renal function 2000 panelon 06-26-2022 Albumin [Mass/Vol] 3.0 g/dL Low 3.2 - 5.2 g/dL [facility] Anion gap [Moles/Vol] 13 mmol/L 10 - 2 0 mmol/L [facility] Calcium [Mass/Vol] 8.6 mg/dL 8.4 - 10. 2 mg/dL [facility] Chloride [Moles/Vol] 102 mmol/L 98 - 10 8 mmol/L [facility] Creatinine [Mass/Vol] 1.87 mg/dL High 0.60 - 1.20 mg/dL [facility] GFR/1.73 sq M.predicted CKD-EPI (S/P/Bld) [Vol rate/Area] 30 Low - PINF [facility] Comment on above: Estimated GFR was ca lculated using the 2020 CKD-EPI creatinine equation. Glucose [Mass/Vol] 105 mg/dL High 65 - 99 mg/dL [facility] HCO3 [Moles/Vol] 26 mmol/L 21 - 32 mmol/L [facility] Interpretation and review of laboratory results Abnormal [facility] Phosphate [Mass/Vol] 4.5 mg/dL High 2.8 - 4 .1 mg/dL [facility] Potassium [Moles/Vol] 4.6 mmol/L 3.5 - 5.1 mmol/L [facility] Sodium [Moles/Vol] 136 mmol/L 135 - 145 mmol/L [facility] Urea nitrogen [Mass/Vol] 23 mg/dL 8 - 25 mg/dL [facility] Urea nitrogen/Creatinine [Mass ratio] 12.3 mg/mg [facility] has implemented the eGFR calculation approach that does not have a coefficient for race that conforms to the NKF-ASN Task Force Recommendations. [facility] XR Chest 1 Viewon 06-26-2022 No acute cardiopulmonary abnormality. [facility]/ Workstation ID: [id number] [email or web address] EXAMINATION: XR CHEST PA/AP 06/25/2022 1:41 pm [...] abdomen are unremarkable. No acute osseous abnormalities. zhouwu Huy Dial M D - 06/26/2022 EXAMINATION: [...] acute cardiopulmonary abnormality. [facility]/ Workstation ID: [id number] [facility] XR Chest 1 ViewOrdered By: Virgil Dial on 06-26-2022 [facility] Work Phone: CBC Auto Differentialon 06-07 Basophils (Bld) [#/Vol] 0.05 10*3/uL [facility] Basophils/100 WBC (Bld) 0.6 % [facility] Eosinophils (Bld) [#/Vol] 0.18 10*3/uL [facility] Eosinophils/100 WBC (Bld) 2.3 % [facility] Erythrocyte distribution width (RBC) [Entitic vol] 15.5 % High 11.6 - 14.8 % [facility] Hematocrit (Bld) [Volume fraction] 28.6 % Low 36 - 46 % [facility] Hemoglobin (Bld) [Mass/Vol] 8.6 g/dL Low 12 - 16 g/dL [facility] Immature granulocytes (Bld) [#/Vol] 0.04 10*3/uL [facility] Immature granulocytes/100 WBC (Bld) 0.50 % [facility] Comment on above: The IG parameter is the percentage of metamyelocytes, myelocytes and promyelocytes. An immature granulocyte count (IG) of 1% or more suggests the possibility of infection, an IG count of 3% is very likely related to an infection. Interpretation and review of laboratory results Abnormal [facility] Lymphocytes (Bld) [#/Vol] 0.99 10*3/uL [facility] Lymphocytes/100 WBC (Bld) 12.7 % [facility] MCH (RBC) [Entitic mass] 24.3 pg Low 26 - 34 pg [facility] MCHC (RBC) [Mass/Vol] 30.1 g/dL Low 31 - 37 g/dL [facility] MCV (RBC) [Entitic vol] 80.8 fL 80 - 100 fL [facility] Monocytes (Bld) [#/Vol] 0.57 10*3/uL [facility] Monocytes/100 WBC (Bld) 7.3 % [facility] Neut[facility] ([facility] [#/Vol] 5.94 10*3/uL [facility] Neutrophils/100 WBC (Bld) 76.6 % [facility] Nucleated RBC (Bld) [#/Vol] 0.00 10*3/uL [facility] Nucleated RBC/100 WBC (Bld) [Ratio] 0.0 % [facility] Platelet mean volume (Bld) [Entitic vol] 9.4 fL 9.4 - 12.4 fL [facility] Platelets (Bld) [#/Vol] 279 10*3/uL [facility] RBC (Bld) [#/Vol] 3.54 10*6/uL Low [facility] ealt WBC (Bld) [#/Vol] 7.77 10*3/uL [facility] CK [Catalytic activity/Vol]o n 06-25-2022 Interpretation and review of laboratory results Abnormal [facility] COVID-19, MolecularOrdered B y: Katina Cortés on 06-25-2022 SARS-CoV-2 (COVID-19) RNA CATRINA+probe Ql (Resp) Not detected Not Detected [facility] th CPK NO MBon 06-25-2022 CK [Catalytic activity/Vol] 4769 U/L High 40 - 170 U/L [facility] ECG 12 Leadon 06-25-2022 Atrial Rate 85 BPM [facility] P [place] 75 degrees [facility] P-R Interval 152 ms [facility] Q-T Interval 356 ms [facility] QRS Duration 88 ms [facility] QTC Calculation (Bezet) 423 ms [facility] [place] 37 degrees [facility] T [place] 52 degrees [facility] Ventricular Rate 85 BPM [facility] Normal sinus rhythm Normal ECG Confirmed by Jean-Pierre Middleton MD ([id number]) on 06/25/2022 12:32:18 PM MUSE [facility] Glucose (Bld) [Mass/Vol]on 0 06-25-2022 Glucose [Mass/Vol] 119 mg/dL High 65 - 99 mg/dL [facility] Interpretation and review of laboratory results Abnormal [facility] Glucose [Mass/Vol] 98 mg/dL 65 - 99 mg/dL [facility] Interpretation and review of laboratory results Normal [facility] Glucose [Mass/Vol] 119 mg/dL High 65 - 99 mg/dL [facility] Interpretation and review of laboratory results Abnormal [facility] Glucose [Mass/Vol] 107 mg/dL High 65 - 99 mg/dL [facility] Interpretation and review of laboratory results Abnormal [facility] Magnesium Levelon 06-25-2022 Magnesium [Mass/Vol] 1.5 mg/dL Low 1.6 - 2 .4 mg/dL [facility] No Panel Informationon 06-25 Interpretation and review of laboratory results Abnormal [facility] Renal function 2000 panelon 06-25-2022 Albumin [Mass/Vol] 2.7 g/dL Low 3.2 - 5.2 g/dL [facility] Anion gap [Moles/Vol] 15 mmol/L 10 - 2 0 mmol/L [facility] Calcium [Mass/Vol] 8.6 mg/dL 8.4 - 10. 2 mg/dL [facility] Chloride [Moles/Vol] 106 mmol/L 98 - 10 8 mmol/L [facility] Creatinine [Mass/Vol] 2.05 mg/dL High 0.60 - 1.20 mg/dL [facility] GFR/1.73 sq M.predicted CKD-EPI (S/P/Bld) [Vol rate/Area] 27 Low - PINF [facility] Comment on above: Estimated GFR was ca lculated using the 2020 CKD-EPI creatinine equation. Glucose [Mass/Vol] 94 mg/dL 65 - 99 mg/dL [facility] HCO3 [Moles/Vol] 23 mmol/L 21 - 32 mmol/L [facility] Phosphate [Mass/Vol] 4.4 mg/dL High 2.8 - 4 .1 mg/dL [facility] Potassium [Moles/Vol] 5.1 mmol/L 3.5 - 5.1 mmol/L [facility] Sodium [Moles/Vol] 139 mmol/L 135 - 145 mmol/L [facility] Urea nitrogen [Mass/Vol] 28 mg/dL High 8 - 25 mg/dL [facility] Urea nitrogen/Creatinine [Mass ratio] 13.7 mg/mg 10 - 20 [facility] has implemented the eGFR calculation approach that does not have a coefficient for race that conforms to the NKF-ASN Task Force Recommendations. [facility] SARS-CoV-2 (COVID-19) RNA NA A+probe Ql (Resp)Ordered By: Katina Cortés on 06-25-2022 Interpretation and review of laboratory results Normal [facility] This test was perfor med under the [...] the following links: For Healthcare Providers: https://www.fda.gov/med ia/868584/download For Patients: https://www.fda.gov/med ia/235965/download [facility] XR Chest 1 Viewon 06-25-2022 Radiology Study observation (narrative) [facility] Auto Differential[facility] 06-06 Basophils (Bld) [#/Vol] 0.03 10*3/uL [facility] Basophils/100 WBC (Bld) 0.4 % [facility] Eosinophils (Bld) [#/Vol] 0.12 10*3/uL [facility] Eosinophils/100 WBC (Bld) 1.6 % [facility] Erythrocyte distribution width (RBC) [Entitic vol] 15.3 % High 11.6 - 14.8 % [facility] Hematocrit (Bld) [Volume fraction] 29.6 % Low 36 - 46 % [facility] Hemoglobin (Bld) [Mass/Vol] 8.6 g/dL Low 12 - 16 g/dL [facility] Immature granulocytes (Bld) [#/Vol] 0.04 10*3/uL [facility] Immature granulocytes/100 WBC (Bld) 0.50 % [facility] Comment on above: The IG parameter is the percentage of metamyelocytes, myelocytes and promyelocytes. An immature granulocyte count (IG) of 1% or more suggests the possibility of infection, an IG count of 3% is very likely related to an infection. Interpretation and review of laboratory results Abnormal [facility] Lymphocytes (Bld) [#/Vol] 0.86 10*3/uL Low [facility] Lymphocytes/100 WBC (Bld) 11.4 % [facility] MCH (RBC) [Entitic mass] 24.2 pg Low 26 - 34 pg [facility] MCHC (RBC) [Mass/Vol] 29.1 g/dL Low 31 - 37 g/dL [facility] MCV (RBC) [Entitic vol] 83.4 fL 80 - 100 fL [facility] Monocytes (Bld) [#/Vol] 0.56 10*3/uL [facility] Monocytes/100 WBC (Bld) 7.4 % [facility] Neutrophils (Bld) [#/Vol] 5.93 10*3/uL [facility] Neutrophils/100 WBC (Bld) 78.7 % [facility] Nucleated RBC (Bld) [#/Vol] 0.00 10*3/uL [facility] Nucleated RBC/100 WBC (Bld) [Ratio] 0.0 % [facility] Platelet mean volume (Bld) [Entitic vol] 9.4 fL 9.4 - 12.4 fL [facility] Platelets (Bld) [#/Vol] 281 10*3/uL [facility] RBC (Bld) [#/Vol] 3.55 10*6/uL Low [facility] WBC (Bld) [#/Vol] 7.54 10*3/uL [facility] eah [facility] CK [Catalytic activity/Vol]o n 06-24-2022 Interpretation and review of laboratory results Abnormal [facility] CPK NO MBon 06-24-2022 CK [Catalytic activity/Vol] 64392 U/L High 40 - 170 U/L [facility] Glucose (Bld) [Mass/Vol]on 0 06-24-2022 Glucose [Mass/Vol] 100 mg/dL High 65 - 99 mg/dL [facility] Interpretation and review of laboratory results Abnormal [facility] Glucose [Mass/Vol] 82 mg/dL 65 - 99 mg/dL [facility] Interpretation and review of laboratory results Normal [facility] Glucose [Mass/Vol] 96 mg/dL 65 - 99 mg/dL [facility] Interpretation and review of laboratory results Normal [facility] Glucose [Mass/Vol] 91 mg/dL 65 - 99 mg/dL [facility] Interpretation and review of laboratory results Normal [facility] Magnesium Levelon 06-24-2022 Magnesium [Mass/Vol] 1.7 mg/dL 1.6 - 2 .4 mg/dL [facility] Magnesium [Mass/Vol]on 06-24 Interpretation and review of laboratory results Normal [facility] Renal function 2000 panelon 06-24-2022 Albumin [Mass/Vol] 2.7 g/dL Low 3.2 - 5.2 g/dL [facility] Anion gap [Moles/Vol] 13 mmol/L 10 - 2 0 mmol/L [facility] Calcium [Mass/Vol] 8.5 mg/dL 8.4 - 10. 2 mg/dL [facility] Chloride [Moles/Vol] 107 mmol/L 98 - 10 8 mmol/L [facility] Creatinine [Mass/Vol] 2.48 mg/dL High 0.60 - 1.20 mg/dL [facility] GFR/1.73 sq M.predicted CKD-EPI (S/P/Bld) [Vol rate/Area] 21 Low - PINF [facility] Comment on above: Estimated GFR was ca lculated using the 2020 CKD-EPI creatinine equation. Glucose [Mass/Vol] 80 mg/dL 65 - 99 mg/dL [facility] HCO3 [Moles/Vol] 21 mmol/L 21 - 32 mmol/L [facility] Interpretation and review of laboratory results Abnormal [facility] Phosphate [Mass/Vol] 4.6 mg/dL High 2.8 - 4 .1 mg/dL [facility] Potassium [Moles/Vol] 5.3 mmol/L High 3.5 - 5.1 mmol/L [facility] Sodium [Moles/Vol] 136 mmol/L 135 - 145 mmol/L [facility] Urea nitrogen [Mass/Vol] 34 mg/dL High 8 - 25 mg/dL [facility] Urea nitrogen/Creatinine [Mass ratio] 13.7 mg/mg 10 - 20 [facility] has implemented the eGFR calculation approach that does not have a coefficient for race that conforms to the NKF-ASN Task Force Recommendations. [facility] Tissue ExamOrdered By: Marco A garcia on 06-24-2022 Case Report Surgical Pathology Report Case: [id number] Authorizing Provider: Tyshawn Santos, Collected: 06/23/2022 12:36 PM Ordering Location: [facility] Received: 06/23/2022 01:21 PM Endoscopy Pathologist: Marco A Romero DO Specimens: A) - Colon, Sigmoid Colon B) - Rectum [facility] Work Phone: Pathology report final diagnosis Narrative [id number] pflUdAVWnuOUoR8SpkuedWV lpRU1jSQ1onLehlBYulCElK YIfEvMqw1dtx714xOYrz5ai MJMJdhdriLg6oJavW77el5N 8BwbpR1qgMDNmMXciSCRsJW xdeEIyZVu7UZBwwZXqbjGaU dKqWBPaxYMhhBU1AQSqAD1j mnkcCAzxJGwpALQuuuT4GJJ ieRTjP5ArRUWfKK7dajexLB R9ZGciFRMgICA2BmAxVQGjq 2Sscsk1RqAumBXrYRhafSKg saaqCBGcIkWzQY4lUUhovx5 8WEE4z9vhgVBfKOxgOgczgG NncoK8QEqTIAJWIYuNOlThQ Z9hLCwAK0BMZLmASkqpNAQ5 OPkkfWE0d5kzcAXcp4i4IJe rZHG3pWYicE7xODQ5XPOoPG jdk0idSFDoTCwqs5GqDVySV FRHBN8YJE3iyQB2USyDHEFN B0eMcNC5QCKkyXK9m7psiYG ly7t7JFidICR2uBAbI13mqH M1YGFrUPqyr8aqSNLaKHcqf 9CbRTuPPSRXRN0QKL5boAF0 RWaWHFRRSMnnALO6KLapdHa pKbuuymEykTInYwXrzZ7fgX gmiB4xoFFhlAGhvCdiTUXaY eBuXJV9FJRvXZtja1chSEJp NHxdb3KcXQhPLZCFCU2FHV0 ziBC5WDuWEBBRT0kInQH0CH A4jHQ8m6vwyALvd2n3SUveL DU1pZSfk2GshIblKmbntJM4 RQfnTodcnQ0zgTZAUWBSXgv UXyulgxSkAP3APVVOQX1NkN H4SJO7fAJ2q2kaiTQtw6f5M OuvWTS1tZmrnZVxutwyyv36 GYV4HHTzWxUlXBZ7b5sliFL vPKocHcbfnESdmaC2JYuZCN MPUWvHAzVxFR4bWPpOB1ONS sM7XvLoCVC4LIqthHajKqku jpNlfXRjFoCvcV5jhKpskU9 cYlxmczIwXHBhclxsaTcyMF duwM67TzEbVxUiC68uz74qE tKpoMHgl6Qyo7c2wB02wOBn aLIfoj6yaUhbOBFule0jsUT veNG4NtobCYTgmXplOIkzxu FhoQIuOHIwJp8kTFrjei80R LU8u4rtdDFyZWyyMyxcqCPy caN6MUrNDKBSXVuVSfVwES8 mZWlTV6FEMBfVSellBVE4VN j6kOV6u1dalVDwu3f1GBlzN LK0aLHmkR3dCAY1XBLmLEjq v1ppDQQgWNyfn3ExENrQRKT OHD5CCJ0eqIL9KRxCEUCLB1 tMxDU4TNFlwMG9n8clgEDet 9u3ILvoXEV6kUDtK5F5xGwm PdncmVP7AHsyPoqkcX9adAL BXKYEItoBJtrvufOxNE3HWC RZAB3ZpGO0HJQueXZ5a6ehi ZXil1m9TVmaJKK2oGpibAHg qzkpts82OXT2KLQqOrFfDIB bYQvrFzinpBY2BJfiFksmpS 5zdCBIWVBFUkxJTksgbmFtZ L8LCSLVItVCEQ26BuE9QCv2 Dz54SCWwUCAxiOAgRHcrX14 7AzpbyAT9t0mlsFXaWYriPg doaTZimuM4OAcHAHOFKVlFZ gPwQY0mWKwRJ4BGWtY9DkN2 ZPt1Re38UCUoIRAhgHZtSGd cM825XQPnMKakJOZdi5ZcR0 JqIdspwpVpYNr4LHEjNRosb 0rfFAUvJXzvo4DpKSkYYPHF UQ0ZNT0jjSD3WTiUOLATVOu kURH6LJs5vNQ7b8onjSLpc8 b2AXpdOBD1gLdflKRpisnmK GZzMjBccGFyXGxpNzIwXGxp ndqzRDi5tZMljYqlIAWtFcY lK7AoSABgG4UtLJSdaRp0WC Qsf2togWuiWHZySUBvpy97D J8giXWiAJQgexlzQC6zjZV5 AAGJMOI4fLEvkxQcGeQpxGK mkhjsmHX5BGXgLPIbv4GeNO NpeiXdzFE9ZOOjUJ8bSIOeU HVwIIatKI6oXXE7bGRcnbXo HY4aKKD1d6QgJCMuDP2hPRO oZSBkaWZmZXJlbnRpYWwgZG oyF56lh9zcXVsmC3m0BYIxE EgeNnDvcBkmpkzlSLT7VGXv KESbglQnQNKaMHA5xT2gVSK uAHOnc5XuOW3sHP1wkNUqJM UhO00MDbOVKYIJL96BQSIXN QOLG4ECD6rVRRP5VcX0rRS6 FaUtPxKkXkjnQtF0ZUM2Xf2 3ChO8VDW5fSX2JT7qOZJ7XC f6MHM8PRt4HYG9YnE5CBBle TC7YB9tNUAvIKz2VESzM25J ReURYMVOX01GZXOOSFHBA1V TENXNFHsXV5ZSLW3XMYYNJW ONPD8XPJePDxNPUBpOX4JSW X7RKLOZWDACHN1UJtYoVNpV M5OTE5uEYVZjAMIKRJMTQIG hJhBETE3jZKw9XPCwGKZ2tv xgTYM8OAl3Vdk6LHHxr1cna kemYRG8AHy9S6n2YNJysDRs pP8ptIE4DxJ8KEalzGJyf1A XoCOqkID6XhCcQLNmzHPhi8 UVM42ca108EyQ0UGJkjKIrb 4MXMtv2g8BixXmpUsP0CWM1 PC3kYVzFT5GDO6lMFVZuOEA OWDXPVZQpVO1TZIqKKK3CDD VtWDGUHGGOKXIeJmHCRA0lH MmYJZ6VAHEdUQVPVQTNMOXh PK6SWYCQUE4VGDHQJVAML06 HVOZYEBBCS0MTT1tXAXPAWS POOfHKWaABOI5XPKMEZMTWB S3CSkS1 [facility] Work Phone: Pathology report gross observation Narrative h1ezjRHqWESrfCJfWJZaOGt guiEaPCLpcRFiV8WfsixaMP mhPQ9pRD4dwQkkgFLmvXCjB ARcSyLgl7fcu058uNZvd9sg YVYKogzxjGi3nMehY63vk3M 3QryxG3bzEXIaAHnmPVJhTT jueRZeUNe9IVRaxVHmhoCyG sNePXKknAUwrJG3XSUcFG3i goigLWdcOTmxDODtjfU4JBN cmWCiQ1ElNSHbCP1wiuuvZT U2NLfxUVHcHMF3NoHhNRHgi 1Qlklh7WkNchVu2v0fgLLCw QNSkyZdcn0wpAWO5ALPzvEA vI8uzuY8oOFNgPA6ciyewp8 nwIVduTJihTGYzrHL6etU2L YYyyEQvM6LgjJ1vLMAoPDRc bgPgpViekJ0kTbDjBQlpOoR xVP7mXBEqQTDJDKTqkIJtDP UutvTtk9BuVMgyradxYDPal IpjXEKoXRNaKOZIw2lllhab Q7cffW1nGPBOu0vdbjRKmU9 kp1baCALnxIAxiRYseEdsQu debLH5YTsvFyyesI1foXYTQ SPYWuiQJbepglOxEY1ATLGK XxZYCL28MnGhQOO1KTvvoRy kGpmrdsKljRZeOdHwkZ7xxi DtB4tdYeeexXY0WNayPrrpm K8txUVDRDKBBunKLyohnxWp ZM1DSGDVCG0WyVW9AAHxtOW 8DS51KQAbDARwgBArRIlnT6 19XHBsYWluXGZzMjAgIHRhb iBmcmFnbWVudChzKSBvZiB0 dBBkdOEmgOChy2ColS7tQXU zFLY6ADPvZBD6SQUcLlOvsQ ucjd02LZQ7m3lkbIGwWElzO gsirPEabkO8KUfMBBORHLtN CcJlWD1wVEcYV3QCPUyTYhg pNIV3B9rohJD5h0zygOAhz6 v7ZHyePEN6bAHydfLoG1ccC YnmeEMho3hdiPHsVHoqZejs wUTecdF4CCqXPAORRQuVAbR sSO0jPIwTB0BJWeG5DeWkPQ T7SynbnPseVzxqwqRtfAYkW zUcxP6mfCjruN7hGpGaQRUf YBItrIIteImzz4KnvNy8bCM jVVxiYVRnV2Dga6E9aPCuvr kuXHBhclxwYXJkXHBhciBCL xLHIPArvIJqDMSzjiFtj4Kg YWxpbiwgZGVzaWduYXRlZCA wWbJFWQL6iQ9rZhedePR8Pu ksLMVtk5WmB1T3MTOxUKntx 0qcGVFwEEqky8IaTCyHYAPH UH3FSD0ixVE1OCiJEJQBQ8o WmUL7RDXozHF5K062IXXePA TuxGOuUBuzU072ZPPpERM5G XEtUMzno0xfJISlTXkds4Yv RSnAHRKQHF4GBR2akPK3FPy VTZPRKHpfGSW2DVbhgBU0z9 rtjTZtg9e5IGhtUOG5zIzch NGnrwgvfdFwLFP6QG7xMjJv N27kduNpngwig8MifCnfc5E wEZ7mCBY6dekuZdQsXvXytK VeKbZzoSFnZbZiD30myTLsv TYboEeiEixfdHV3QKelRzbg yV0knMUIIZLGIvmDHingxbC uVY8IWFEQUwDXVD87ZeUgGU V0FRp1uFdbJxcivjVbzLDtE qQzfT3viE1lWVhoqdPjIKGv SvlrBhszfSG2WGqyGjethL9 zdCBIWVBFUkxJTksgbmFtZT 8EVBYMUT4JqRE5DQDmpLB2X P83FYKwDGRhiKZwPKqbE308 VGHaRHlpNYDaFcHyZMLSr8A deRd9FBA1Mh6rsBYgDIPvbr NwBGVdl5NsvISqRLBsMtheL TGlyJAdXYijGZVqZ2rzvOYw CACbGLMMby6riaGvzYKycI5 ghTlxoqIlOAZoo2CyHDCgGL U0HV6ytrUouOPkLYGPo5Eme QDwqXAyYUDcOWPMgZAxw03z nnXEouPsaHDmMOSdn0XsTIn xGXRNCDZ9QFvxD9zcRZLrpr UVDVRHJWbKF5JkETOJUYVJN IJxSzGFDL6bHiMjWUX4FO96 PlH9DCNgzKL2WP9eRIG4BUv yBLvyOtFfASN4EJ3tLOQLZY FWTVyJXJ5HSAFHHBSHRM7GS zDvU6iCXYNMZwIoHCYHYJCN KTJwHySCMY6nB4gQWKJNZgU cZLHKVFRYYPQbVS7AGIKWJP MIKY1BXPQHV42WJVMNJMVRG 8IXL4tPHJTth4NOlvPwXuXm XK47ElP7NXAdQL2wAUdDOJS lenIvK5nfHXodnEK0BkSaYQ ZfcKWed4IJrgYxOtDzHX45P kI0GOJaDK97OGrEQNVitcUw B3puXFvflRE6XmFeVWXkjND OYFVUWWcABVVKFu2NAMIPLT OPJD8BEpCnC4UDHY2ZEo3DI RALWQFIQQ3EECkGQzLvY7OB HK7ICu0BHBAIQWSJWG6AQuV pDURSO3URYiASL5qxWEMLJC QNGWSaSwSBCW3bEOTOPF5EY CCUYSQBJ18XGHUKUAOUF6CG RH0= [facility] Work Phone: Pathology report microscopic observation Narrative Other stain p5ttnQVlOADdnOCeFuByZLM jWWKsl8vlWRZwsPWuIuOlOt NcZnRuYmpcdWMxXGRlZmYwe 5pym607iFKmf1okKOYcTmX6 dDKtDJDedOSvN183IFOfIXl eb8lyt3YcPEHheLDvp7H0FR YLnhnsaXk3pJerK94xw6Y1F xogW3uoCWMeBRCsA2StLK2w UDDyQuv0WGC5HSK7GRYeCNP hC5JvTC2gOWIqkPSnCRw1t7 ltyOqfIFZfXEP4p7jgYVsay fFoHY4ioz8sdRk1h1fqexUr LODpCTIixOPVTXTeL2AytBd oZx0beZf2iAonIbcbEFP8Nf m4RF2izl63yiw2nTrwWRJtk arlCyQ8OZeyNRFcolfzNCw1 ZYmcLVEfpMY6WKXtpIQqH9T fMELtJN4xbyb4CBZ3UJkyAY JcSzY3BCVwmFJsSFFuqHswU Owzd114HYG9YiEuKC8rC8Wv p6C2qT5ocHKjTNXvpBGbCwY dVQKrrf5pbJImEMkpu2OaYA J4dwI3jJYckBAdSEJkBV32B mukd4DcKtshGRR6YUZjcgPq a2Tlt2yjMhPzbvOsY9boB8X yZHJoZWFkXHBnYnJkcmZvb3 Lmr3VmxRUerTz8n8owSFQvC XMgtZmja4yqAUR2OIJaH5L3 iRCdz4ywTMsvXLIlcKS9omL 4KEXfvGKyC6PdkU0eIRZmMI 2qedz0j7nuBIV3LGzyWENtA iL2iaP9MSGieFEfMUPwuMuy ALsou735PPY6HgXwNSVcs4C sE2JleTmzS70deWivB25zFD YclFaqcL7liOambR6jEpFiS nMyNFxxbFxwbGFpblxmMVxm vkDlEIxqlycmXCJqZQfhB3b tEqLqJCSlkYovCLpvu5MzQE MgSECoVfFhKVpobc2iP11af RAiGDfhnHcpWYYov74qgDMa kZVsPr1cvUBfTojlBHD5 [facility] Work Phone: [facility] Work Phone: Troponin x 2 (Now and Repeat in 3 hours)on 06-24-2022 [facility] Troponin I 1 ng/L < -/+ 12 change [facility] Troponin I Delta Change No biomarker evidence of cardiac injury. [facility] Troponin I 31 ng/L NINF - 59 ng/L [facility] Troponin I 30 ng/L NINF - 59 ng/L [facility] Troponin I Interpretation Normal [facility] XR Chest 1 Viewon 06-24-2022 1. New mild pulmonary vascular congestion. 2. No focal airspace consolidation. Workstation ID: [id number] [email or web address] EXAMINATION: XR CHEST PA/AP 06/24/2022 9:59 am [...] No acute osseous or soft tissue abnormalities. zhouwu Meaghan Canada, DO - 06/24/2022 EXAMINATION: XR [...] No focal airspace consolidation. Workstation ID: [id number] [facility] Radiology [facility] (narrative) [facility] 1 ViewOrdered By: Virgil Canada on 06-24-2022 [facility] Work Phone: Basic metabolic 2000 panelOr dered By: Ronal Allan on 06-23-2022 Anion gap [Moles/Vol] 14 mmol/L 10 - 2 0 mmol/L [facility] Calcium [Mass/Vol] 8.0 mg/dL Low 8.4 - 10. 2 mg/dL [facility] Chloride [Moles/Vol] 105 mmol/L 98 - 10 8 mmol/L [facility] Creatinine [Mass/Vol] 2.86 mg/dL High 0.60 - 1.20 mg/dL [facility] GFR/1.73 sq M.predicted CKD-EPI (S/P/Bld) [Vol rate/Area] 18 Low - PINF [facility] Comment on above: Estimated GFR was ca lculated using the 2020 CKD-EPI creatinine equation. Glucose [Mass/Vol] 85 mg/dL 65 - 99 mg/dL [facility] HCO3 [Moles/Vol] 20 mmol/L Low 21 - 32 mmol/L [facility] Interpretation and review of laboratory results Abnormal [facility] Potassium [Moles/Vol] 5.3 mmol/L High 3.5 - 5.1 mmol/L [facility] Sodium [Moles/Vol] 134 mmol/L Low 135 - 145 mmol/L [facility] Urea nitrogen [Mass/Vol] 45 mg/dL High 8 - 25 mg/dL [facility] Urea nitrogen/Creatinine [Mass ratio] 15.7 mg/mg 10 - 20 [facility] Laborator y Services has implemented the eGFR calculation approach that does not have a coefficient for race that conforms to the NKF-ASN Task Force Recommendations. [facility] CBC panel Auto (Bld)on 06-23 Erythrocyte distribution width (RBC) [Entitic vol] 15.8 % High 11.6 - 14.8 % [facility] Hematocrit (Bld) [Volume fraction] 28.1 % Low 36 - 46 % [facility] Hemoglobin (Bld) [Mass/Vol] 8.4 g/dL Low 12 - 16 g/dL [facility] Interpretation and review of laboratory results Abnormal [facility] MCH (RBC) [Entitic mass] 24.9 pg Low 26 - 34 pg [facility] MCHC (RBC) [Mass/Vol] 29.9 g/dL Low 31 - 37 g/dL [facility] MCV (RBC) [Entitic vol] 83.4 fL 80 - 100 fL [facility] Nucleated RBC (Bld) [#/Vol] 0.00 10*3/uL [facility] Nucleated RBC/100 WBC (Bld) [Ratio] 0.0 % [facility] Platelet mean volume (Bld) [Entitic vol] 9.9 fL 9.4 - 12.4 fL [facility] Platelets (Bld) [#/Vol] 303 10*3/uL [facility] RBC (Bld) [#/Vol] 3.37 10*6/uL Low [facility]alth WBC (Bld) [#/Vol] 10.12 10*3/uL [facility] Glucose (Bld) [Mass/Vol]on 0 06-23-2022 Glucose [Mass/Vol] 102 mg/dL High 65 - 99 mg/dL [facility] Interpretation and review of laboratory results Abnormal [facility] Glucose [Mass/Vol] 97 mg/dL 65 - 99 mg/dL [facility] Interpretation and review of laboratory results Normal [facility] Glucose [Mass/Vol] 90 mg/dL 65 - 99 mg/dL [facility] Interpretation and review of laboratory results Normal [facility] Glucose [Mass/Vol] 90 mg/dL 65 - 99 mg/dL [facility] Interpretation and review of laboratory results Normal [facility] SIGMOIDOSCOPYon 06-23-2022 [facility] TSH DL <= 0.005 mIU/L Qnon 0 06-23-2022 Interpretation and review of laboratory results Normal [facility] TSH Qn 0.68 m[IU]/L [facility] Gastrointestinal pathogens D NA and RNA panel CATRINA+non-probe (Stl)Ordered By: Andree Chapa on 06-22-2022 Adenovirus 40+41 DNA CATRINA+non-probe Ql (Stl) Not detected Not Detected [facility] Astrovirus subtypes 1-8 RNA CATRINA+non-probe Ql (Stl) Not detected Not Detected [facility] C. cayetanensis DNA CATRINA+non-probe Ql (Stl) Not detected Not Detected [facility] C. coli+jejuni+upsaliensis DNA CATRINA+non-probe Ql (Stl) Not detected Not Detected [facility] C. difficile toxin A+B tcdA+tcdB genes CATRINA+non-probe Ql (Stl) Not detected Not Detected [facility] Cryptosporidium sp DNA CATRINA+non-probe Ql (Stl) Not detected Not Detected [facility] E. coli enteroaggregative [place] plasmid aggR+aatA genes CATRINA+non-probe Ql (Stl) Not detected Not Detected [facility] E. coli enteropathogenic eae gene CATRINA+non-probe Ql (Stl) Not detected Not Detected [facility] E. coli enterotoxigenic ltA+st1a+st1b genes CATRINA+non-probe Ql (Stl) Not detected Not Detected [facility] E. coli stx1+stx2 genes CATRINA+non-probe Ql (Stl) Not detected Not Detected [facility] E. histolytica DNA CATRINA+non-probe Ql (Stl) Not detected Not Detected [facility] G. lamblia DNA CATRINA+non-probe Ql (Stl) Not detected Not Detected [facility] Interpretation and review of laboratory results Normal [facility] Norovirus genogroup I+II RNA CATRINA+non-probe Ql (Stl) Not detected Not Detected [facility] P. shigelloides DNA CATRINA+non-probe Ql (Stl) Not detected Not Detected [facility] Rotavirus A RNA CATRINA+non-probe Ql (Stl) Not detected Not Detected [facility] S. enterica+bongori DNA CATRINA+non-probe Ql (Stl) Not detected Not Detected [facility] Sapovirus genogroups I+II+IV+V RNA CATRINA+non-probe Ql (Stl) Not detected Not Detected [facility] Shigella species+EIEC invasion plasmid antigen H ipaH gene CATRINA+non-probe Ql (Stl) Not detected Not Detected [facility] V. cholerae DNA CATRINA+non-probe Ql (Stl) Not detected [facility] V. cholerae+parahaemolytic us+vulnificus DNA CATRINA+non-probe Ql (Stl) Not detected Not Detected [facility] Y. enterocolitica DNA CATRINA+non-probe Ql (Stl) Not detected Not [facility]ed [facility] Results of PCR testi ng [...] infections as well as select bacterial infections. [facility] Glucose (Bld) [Mass/Vol]on 0 06-22-2022 Glucose [Mass/Vol] 98 mg/dL 65 - 99 mg/dL [facility] Interpretation and review of laboratory results Normal [facility] Glucose [Mass/Vol] 95 mg/dL 65 - 99 mg/dL [facility] Interpretation and review of laboratory results Normal [facility] Glucose [Mass/Vol] 121 mg/dL High 65 - 99 mg/dL [facility] Interpretation and review of laboratory results Abnormal [facility] Glucose [Mass/Vol] 99 mg/dL 65 - 99 mg/dL [facility] Interpretation and review of laboratory results Normal [facility] Basic metabolic 1998 panelon 06-21-2022 [facility] CBC Auto Differentialon 06-06 Basophils (Bld) [#/Vol] 0.06 10*3/uL [facility] Basophils/100 WBC (Bld) 0.3 % [facility] Eosinophils (Bld) [#/Vol] 0.03 10*3/uL [facility] Eosinophils/100 WBC (Bld) 0.1 % [facility] Erythrocyte distribution width (RBC) [Entitic vol] 15.8 % High 11.6 - 14.8 % [facility] Hematocrit (Bld) [Volume fraction] 36.1 % 36 - 46 % [facility] Hemoglobin (Bld) [Mass/Vol] 10.9 g/dL Low 12 - 16 g/dL [facility] Immature granulocytes (Bld) [#/Vol] 0.12 10*3/uL [facility] Immature granulocytes/100 WBC (Bld) 0.60 % [facility] Comment on above: The IG parameter is the percentage of metamyelocytes, myelocytes and promyelocytes. An immature granulocyte count (IG) of 1% or more suggests the possibility of infection, an IG count of 3% is very likely related to an infection. Interpretation and review of laboratory results Abnormal [facility] Lymphocytes (Bld) [#/Vol] 1.18 10*3/uL [facility] Lymphocytes/100 WBC (Bld) 5.7 % [facility] MCH (RBC) [Entitic mass] 24.7 pg Low 26 - 34 pg [facility] MCHC (RBC) [Mass/Vol] 30.2 g/dL Low 31 - 37 g/dL [facility] MCV (RBC) [Entitic vol] 81.9 fL 80 - 100 fL [facility] Monocytes (Bld) [#/Vol] 0.99 10*3/uL High [facility] Monocytes/100 WBC (Bld) 4.8 % [facility] Neutrophils (Bld) [#/Vol] 18.32 10*3/uL High [facility] Neutrophils/100 WBC (Bld) 88.5 % [facility] Nucleated RBC (Bld) [#/Vol] 0.00 10*3/uL [facility] Nucleated RBC/100 WBC (Bld) [Ratio] 0.0 % [facility] Platelet mean volume (Bld) [Entitic vol] 9.7 fL 9.4 - 12.4 fL [facility] Platelets (Bld) [#/Vol] 503 10*3/uL High [facility] RBC (Bld) [#/Vol] 4.41 10*6/uL [facility] ealth WBC (Bld) [#/Vol] 20.70 10*3/uL [facility] CT Abdomen Pelvis Without Co ntraston 06-21-2022 1. There is fluid throughout the colon which may be consistent with rapid transit/diarrhea. 2. Hepatic steatosis. 3. Extensive aortic calcification. [employer] Workstation ID: [id number] EXAMINATION: CT ABDOMEN PELVIS WITHOUT CONTRAST HISTORY: [...] the lumbar spine. No suspicious osseous lesion. [facility] Vasiliy Lopez MD - 06/21/2022 EXAMINATION: CT [...] 2. Hepatic steatosis. 3. Extensive aortic calcification. Giiv/DS [employer] Workstation ID: [id number] [facility] Radiology Study observation (narrative) [facility] Comprehensive metabolic 2000 panelon 06-21-2022 Albumin [Mass/Vol] 3.2 g/dL 3.2 - 5.2 g/dL [facility] ALP [Catalytic activity/Vol] 81 U/L 40 - 150 U/L [facility] ALT [Catalytic activity/Vol] 131 U/L High 14 - 65 U/L [facility] AST [Catalytic activity/Vol] 712 U/L High 0 - 45 U/L [facility] Bilirubin [Mass/Vol] 0.2 mg/dL 0 - 1.3 mg/dL [facility] Calcium [Mass/Vol] 9.4 mg/dL 8.4 - 10. 2 mg/dL [facility] Protein [Mass/Vol] 8.0 g/dL 6 - 8 g/dL [facility] Critical Careon 06-21-2022 Jaiden Bagley MD 06/21/2022 2:29 PM Critical Care Performed by: Jaiden Bagley MD Authorized by: Jaiden Bagley MD Total critical care time: 30 minutes [facility] Glucose (Bld) [Mass/Vol]on 0 06-21-2022 Glucose [Mass/Vol] 122 mg/dL High 65 - 99 mg/dL [facility] Interpretation and review of laboratory results Abnormal [facility] Glucose [Mass/Vol] 98 mg/dL 65 - 99 mg/dL [facility] Interpretation and review of laboratory results Normal [facility] INR Coag (PPP) [Relative pablo e]on 06-21-2022 Interpretation and review of laboratory results Normal [facility] PT Coag (PPP) [Time] 14.2 s [facility] During the induction phase of oral anticoagulation, the INR may not reflect the anticoagulation status of the patient. Therapeutic ranges for INR's are: Most clinical situations: INR 2.0-3.0 Mechanical Prosthetic Valve: INR 2.5-3.5 Critical: INR >5.0 [facility] Laboratory - Chemistry and C hemistry - challengeon 06-21-2022 Anion gap [Moles/Vol] 15 mmol/L 10 - 2 0 mmol/L [facility] Chloride [Moles/Vol] 97 mmol/L Low 98 - 10 8 mmol/L [facility] Creatinine [Mass/Vol] 2.61 mg/dL High 0.60 - 1.20 mg/dL [facility] GFR/1.73 sq M.predicted CKD-EPI (S/P/Bld) [Vol rate/Area] 20 Low - PINF [facility] Comment on above: Estimated GFR was ca lculated using the 2020 CKD-EPI creatinine equation. Glucose [Mass/Vol] 124 mg/dL High 65 - 99 mg/dL [facility] HCO3 [Moles/Vol] 23 mmol/L 21 - 32 mmol/L [facility] Potassium [Moles/Vol] 5.2 mmol/L High 3.5 - 5.1 mmol/L [facility] Sodium [Moles/Vol] 130 mmol/L Low 135 - 145 mmol/L [facility] Urea nitrogen [Mass/Vol] 48 mg/dL High 8 - 25 mg/dL [facility] Urea nitrogen/Creatinine [Mass ratio] 18.4 mg/mg 10 - 20 [facility] Lactate [Moles/Vol]on 2021 Interpretation and review of laboratory results Normal [facility] Lactic Acid, Plasmaon 2021 Lactate [Moles/Vol] 0.9 mmol/L 0.6 - 2 mmol/L [facility] Lipaseon 06-21-2022 Lipase [Catalytic activity/Vol] 133 U/L 73 - 393 U/L [facility] Lipase [Catalytic activity/V ol]on 06-21-2022 Interpretation and review of laboratory results Normal [facility] No Panel Informationon 06-21 [facility] Interpretation and review of laboratory results Abnormal [facility] Laborator y Services has implemented the eGFR calculation approach that does not have a coefficient for race that conforms to the NKF-ASN Task Force Recommendations. [facility] PT/INRon 06-21-2022 INR Coag (PPP) [Relative time] 1.1 {INR} 0.8 - 1.1 [facility] Troponinon 06-21-2022 Troponin I 34 ng/L NINF - 59 ng/L [facility] Troponin I Interpretation Normal [facility] XR Chest 1 Viewon 06-21-2022 No evident acute process in the chest. JMK/lab Workstation ID: [id number] KeyMe EXAMINATION: XR CHEST PA/AP HISTORY: Weakness. COMPARISON: Chest x-ray 03/31/2022. TECHNIQUE: A portable frontal upright view of the chest. FINDINGS: Calcified granulomas at the right upper lobe. No airspace opacity. No pneumothorax or pleural effusion. Cardiomediastinal silhouette and pulmonary vasculature are within normal limits. Surgical clips project at the left neck. Surgical anchor at the right humeral head. [facility] Vasiliy Lopez MD - 06/21/2022 EXAMINATION: XR [...] No evident acute process in the chest. [employer]/lab Workstation ID: [id number] [facility] Radiology Study observation (narrative) XR Chest 1 ViewOrdered By: Brandie Lopez on 06-21-2022 [facility] Work Phone: Basic metabolic 2000 panelon 04-04-2022 Anion gap [Moles/Vol] 13 mmol/L 10 - 2 0 mmol/L [facility] Calcium [Mass/Vol] 9.1 mg/dL 8.4 - 10. 2 mg/dL [facility] Chloride [Moles/Vol] 99 mmol/L 98 - 10 8 mmol/L [facility] Creatinine [Mass/Vol] 1.23 mg/dL High 0.60 - 1.20 mg/dL [facility] GFR/1.73 sq M.predicted CKD-EPI (S/P/Bld) [Vol rate/Area] 47 Low - PINF [facility] Glucose [Mass/Vol] 101 mg/dL High 65 - 99 mg/[facility] H[facility]3 [Moles/Vol] 28 mmol/L 21 - 32 mmol/L [facility] Interpretation and review of laboratory results Abnormal [facility] Potassium [Moles/Vol] 4.3 mmol/L 3.5 - 5.1 mmol/L [facility] Sodium [Moles/Vol] 136 mmol/L 135 - 145 mmol/L [facility] Urea nitrogen [Mass/Vol] 10 mg/dL 8 - 25 mg/dL [facility] Urea nitrogen/Creatinine [Mass ratio] 8.1 mg/mg Low 10 - 20 [facility] The eGFR should be u sed for monitoring renal function only and not for medication dosing. [facility] CBC panel Auto (Bld)on 04-04 Erythrocyte distribution width (RBC) [Entitic vol] 16.1 % High 11.6 - 14.8 % [facility] Hematocrit (Bld) [Volume fraction] 32.8 % Low 36 - 46 % [facility] Hemoglobin (Bld) [Mass/Vol] 9.9 g/dL Low 12 - 16 g/dL [facility] Interpretation and review of laboratory results Abnormal [facility] MCH (RBC) [Entitic mass] 24.6 pg Low 26 - 34 pg [facility] MCHC (RBC) [Mass/Vol] 30.2 g/dL Low 31 - 37 g/dL [facility] MCV (RBC) [Entitic vol] 81.6 fL 80 - 100 fL [facility] Nucleated RBC (Bld) [#/Vol] 0.00 10*3/uL [facility] Nucleated RBC/100 WBC (Bld) [Ratio] 0.0 % [facility] Platelet mean volume (Bld) [Entitic vol] 10.0 fL 9.4 - 12.4 fL [facility] Platelets (Bld) [#/Vol] 267 10*3/uL [facility] RBC (Bld) [#/Vol] 4.02 10*6/uL [facility] WBC (Bld) [#/Vol] 6.14 10*3/uL [facility] Glucose (Bld) [Mass/Vol]on 0 04-04-2022 Glucose [Mass/Vol] 106 mg/dL High 65 - 99 mg/dL [facility] Interpretation and review of laboratory results Abnormal [facility] Magnesium Levelon 04-04-2022 Magnesium [Mass/Vol] 1.9 mg/dL 1.6 - 2 .4 mg/dL [facility] Magnesium [Mass/Vol]on 04-04 Interpretation and review of laboratory results Normal [facility] Phosphate [Mass/Vol]on 04-04 Interpretation and review of laboratory results Abnormal [facility] Phosphoruson 04-04-2022 Phosphate [Mass/Vol] 4.4 mg/dL High 2.8 - 4 .1 mg/dL [facility] Basic metabolic 2000 panelon 04-03-2022 Anion gap [Moles/Vol] 15 mmol/L 10 - 2 0 mmol/L [facility] Calcium [Mass/Vol] 9.1 mg/dL 8.4 - 10. 2 mg/dL [facility] Chloride [Moles/Vol] 101 mmol/L 98 - 10 8 mmol/L [facility] Creatinine [Mass/Vol] 1.14 mg/dL 0.60 - 1.20 mg/dL [facility] GFR/1.73 sq M.predicted CKD-EPI (S/P/Bld) [Vol rate/Area] 51 Low - PINF [facility] Glucose [Mass/Vol] 101 mg/dL High 65 - 99 mg/dL [facility] HCO3 [Moles/Vol] 26 mmol/L 21 - 32 mmol/L [facility] Interpretation and review of laboratory results Abnormal [facility] Potassium [Moles/Vol] 4.7 mmol/L 3.5 - 5.1 mmol/L [facility] Sodium [Moles/Vol] 137 mmol/L 135 - 145 mmol/L [facility] Urea nitrogen [Mass/Vol] 10 mg/dL 8 - 25 mg/dL [facility] Urea nitrogen/Creatinine [Mass ratio] 8.8 mg/mg Low 10 - 20 [facility] The eGFR should be u sed for monitoring renal function only and not for medication dosing. [facility] CBC panel Auto (Bld)on 04-03 Erythrocyte distribution width (RBC) [Entitic vol] 16.2 % High 11.6 - 14.8 % [facility] Hematocrit (Bld) [Volume fraction] 30.9 % Low 36 - 46 % [facility] Hemoglobin (Bld) [Mass/Vol] 9.3 g/dL Low 12 - 16 g/dL [facility] Interpretation and review of laboratory results Abnormal [facility] MCH (RBC) [Entitic mass] 24.4 pg Low 26 - 34 pg [facility] MCHC (RBC) [Mass/Vol] 30.1 g/dL Low 31 - 37 g/dL [facility] MCV (RBC) [Entitic vol] 81.1 fL 80 - 100 fL [facility] Nucleated RBC (Bld) [#/Vol] 0.00 10*3/uL [facility] Nucleated RBC/100 WBC (Bld) [Ratio] 0.0 % [facility] Platelet mean volume (Bld) [Entitic vol] 10.3 fL 9.4 - 12.4 fL [facility] Platelets (Bld) [#/Vol] 286 10*3/uL [facility] RBC (Bld) [#/Vol] 3.81 10*6/uL Low [facility] WBC (Bld) [#/Vol] 7.32 10*3/uL [facility] Glucose (Bld) [Mass/Vol]on 0 04-03-2022 Glucose [Mass/Vol] 118 mg/dL High 65 - 99 mg/dL [facility] Interpretation and review of laboratory results Abnormal [facility] Glucose [Mass/Vol] 141 mg/dL High 65 - 99 mg/dL [facility] Interpretation and review of laboratory results Abnormal [facility] Glucose [Mass/Vol] 98 mg/dL 65 - 99 mg/dL [facility] Interpretation and review of laboratory results Normal [facility] Glucose [Mass/Vol] 109 mg/dL High 65 - 99 mg/dL [facility] Interpretation and review of laboratory results Abnormal [facility] Magnesium Levelon 04-03-2022 Magnesium [Mass/Vol] 1.9 mg/dL 1.6 - 2 .4 mg/dL [facility] Magnesium [Mass/Vol]on 04-03 Interpretation and review of laboratory results Normal [facility] Phosphate [Mass/Vol]on 04-03 Interpretation and review of laboratory results Normal [facility] Phosphoruson 04-03-2022 Phosphate [Mass/Vol] 4.1 mg/dL 2.8 - 4 .1 mg/dL [facility] Basic metabolic 2000 panelon 04-02-2022 Anion gap [Moles/Vol] 16 mmol/L 10 - 2 0 mmol/L [facility] Calcium [Mass/Vol] 8.6 mg/dL 8.4 - 10. 2 mg/dL [facility] Chloride [Moles/Vol] 101 mmol/L 98 - 10 8 mmol/L [facility] Creatinine [Mass/Vol] 1.12 mg/dL 0.60 - 1.20 mg/dL [facility] GFR/1.73 sq M.predicted CKD-EPI (S/P/Bld) [Vol rate/Area] 52 Low - PINF [facility] Glucose [Mass/Vol] 95 mg/dL 65 - 99 mg/dL [facility] HCO3 [Moles/Vol] 24 mmol/L 21 - 32 mmol/L [facility] Interpretation and review of laboratory results Abnormal [facility] Potassium [Moles/Vol] 5.0 mmol/L 3.5 - 5.1 mmol/L [facility] Sodium [Moles/Vol] 136 mmol/L 135 - 145 mmol/L [facility] Urea nitrogen [Mass/Vol] 11 mg/dL 8 - 25 mg/dL [facility] Urea nitrogen/Creatinine [Mass ratio] 9.8 mg/mg Low 10 - 20 [facility] The eGFR should be u sed for monitoring renal function only and not for medication dosing. [facility] CBC panel Auto (Bld)on 04-02 Erythrocyte distribution width (RBC) [Entitic vol] 16.4 % High 11.6 - 14.8 % [facility] Hematocrit (Bld) [Volume fraction] 31.9 % Low 36 - 46 % [facility] Hemoglobin (Bld) [Mass/Vol] 9.4 g/dL Low 12 - 16 g/dL [facility] Interpretation and review of laboratory results Abnormal [facility] MCH (RBC) [Entitic mass] 24.4 pg Low 26 - 34 pg [facility] MCHC (RBC) [Mass/Vol] 29.5 g/dL Low 31 - 37 g/dL [facility] MCV (RBC) [Entitic vol] 82.9 fL 80 - 100 fL [facility] Nucleated RBC (Bld) [#/Vol] 0.00 10*3/uL [facility] Nucleated RBC/100 WBC (Bld) [Ratio] 0.0 % [facility] Platelet mean volume (Bld) [Entitic vol] 9.9 fL 9.4 - 12.4 fL [facility] Platelets (Bld) [#/Vol] 280 10*3/uL [facility] RBC (Bld) [#/Vol] 3.85 10*6/uL Low [facility] WBC (Bld) [#/Vol] 7.21 10*3/uL [facility] ECG 12 Leadon 04-02-2022 Atrial Rate 82 BPM [facility] P [place] 70 degrees [facility] P-R Interval 152 ms [facility] Q-T Interval 368 ms [facility] QRS Duration 94 ms [facility] QTC Calculation (Bezet) 429 ms [facility] R [place] 45 degrees [facility] T [place] 16 degrees [facility] Ventricular Rate 82 BPM [facility] Normal sinus rhythm Nonspecific T wave abnormality Abnormal ECG Confirmed by RIVER ZAVALA MD ([id number]) on 04/02/2022 8:18:58 AM MUSE [facility] Atrial Rate 75 BPM [facility] P [place] 56 degrees [facility] P-R Interval 144 ms [facility] Q-T Interval 366 ms [facility] QRS Duration 98 ms [facility] QTC Calculation (Bezet) 408 ms [facility] R [place] 31 degrees [facility] T [place] 1 degrees [facility] Ventricular Rate 75 BPM [facility] Normal sinus rhythm Nonspecific T wave abnormality Abnormal ECG Confirmed by RIVER ZAVALA MD ([id number]) on 04/02/2022 8:13:22 AM [facility] Glucose (Bld) [Mass/Vol]on 0 04-02-2022 Glucose [Mass/Vol] 101 mg/dL High 65 - 99 mg/dL [facility] Interpretation and review of laboratory results Abnormal [facility] Glucose [Mass/Vol] 107 mg/dL High 65 - 99 mg/dL [facility] Interpretation and review of laboratory results Abnormal [facility] Glucose [Mass/Vol] 153 mg/dL High 65 - 99 mg/dL [facility] Interpretation and review of laboratory results Abnormal [facility] Glucose [Mass/Vol] 95 mg/dL 65 - 99 mg/dL [facility] Interpretation and review of laboratory results Normal [facility] Magnesium Levelon 04-02-2022 Magnesium [Mass/Vol] 1.9 mg/dL 1.6 - 2 .4 mg/dL [facility] Magnesium [Mass/Vol]on 04-02 Interpretation and review of laboratory results Normal [facility] Phosphate [Mass/Vol]on 04-02 Interpretation and review of laboratory results Normal [facility] Phosphoruson 04-02-2022 Phosphate [Mass/Vol] 3.1 mg/dL 2.8 - 4 .1 mg/dL [facility] UrinalysisOrdered By: Surendra Patel on 04-02-2022 Bacteria Auto Ql (U) Rare Abnormal None Se en /hpf [facility] Bilirubin Ql (U) Negative Negative [facility] th Clarity Refractometry automated (U) Clear Clear [facility] Color (U) Yellow Colorless, Yellow [facility] Glucose Auto test strip (U) [Mass/Vol] Negative Negative mg/dL [facility] Hemoglobin Auto test strip Ql (U) Moderate Abnormal Negative [facility] Interpretation and review of laboratory results Abnormal [facility] Ketones (U) [Mass/Vol] Negative Negat radha mg/dL [facility] Leukocyte esterase Auto test strip Ql (U) Trace Abnormal Negative [facility] Mucus Auto (Urine sed) [#/Area] Rare None Seen, Rare /lpf [facility] Nitrite Auto test strip Ql (U) Negative Negative [facility] pH (U) 6.0 [pH] 5 - 7 [facility] Protein (U) [Mass/Vol] 100 mg/dL Abnormal Negat radha mg/dL [facility] RBC Auto (Urine sed) [#/Area] 64 High [facility] Specific gravity (U) [Rel density] 1.010 1.005 - 1.025 [facility] Urobilinogen (U) [Mass/Vol] mg/dL NINF - 2.0 mg/dL [facility] WBC Auto (Urine sed) [#/Area] 4 [facility] Microscopic examinat ion is performed on all urinalysis samples and only positive findings are reported. The test for blood on the chemical analytic portion of urinalysis may also be positive due to hemoglobinuria and myoglobinuria and if red blood cells are present they are quantified by microscopic examination. [facility] Basic metabolic 2000 panelon 04-01-2022 Anion gap [Moles/Vol] 13 mmol/L 10 - 2 0 mmol/L [facility] Calcium [Mass/Vol] 8.5 mg/dL 8.4 - 10. 2 mg/dL [facility] Chloride [Moles/Vol] 102 mmol/L 98 - 10 8 mmol/L [facility] Creatinine [Mass/Vol] 1.48 mg/dL High 0.60 - 1.20 mg/dL [facility] GFR/1.73 sq M.predicted CKD-EPI (S/P/Bld) [Vol rate/Area] 37 Low - PINF [facility] Glucose [Mass/Vol] 92 mg/dL 65 - 99 mg/dL [facility] HCO3 [Moles/Vol] 24 mmol/L 21 - 32 mmol/L [facility] Interpretation and review of laboratory results Abnormal [facility] Potassium [Moles/Vol] 4.8 mmol/L 3.5 - 5.1 mmol/L [facility] Sodium [Moles/Vol] 134 mmol/L Low 135 - 145 mmol/L [facility] Urea nitrogen [Mass/Vol] 15 mg/dL 8 - 25 mg/dL [facility] Urea nitrogen/Creatinine [Mass ratio] 10.1 mg/mg 10 - 20 [facility] The eGFR should be u sed for monitoring renal function only and not for medication dosing. [facility] CBC panel Auto (Bld)on 04-01 Erythrocyte distribution width (RBC) [Entitic vol] 16.3 % High 11.6 - 14.8 % [facility] Hematocrit (Bld) [Volume fraction] 31.8 % Low 36 - 46 % [facility] Hemoglobin (Bld) [Mass/Vol] 9.4 g/dL Low 12 - 16 g/dL [facility] Interpretation and review of laboratory results Abnormal [facility] MCH (RBC) [Entitic mass] 24.7 pg Low 26 - 34 pg [facility] MCHC (RBC) [Mass/Vol] 29.6 g/dL Low 31 - 37 g/dL [facility] MCV (RBC) [Entitic vol] 83.5 fL 80 - 100 fL [facility] Nucleated RBC (Bld) [#/Vol] 0.00 10*3/uL [facility] Nucleated RBC/100 WBC (Bld) [Ratio] 0.0 % [facility] Platelet mean volume (Bld) [Entitic vol] 9.8 fL 9.4 - 12.4 fL [facility] Platelets (Bld) [#/Vol] 269 10*3/uL [facility] RBC (Bld) [#/Vol] 3.81 10*6/uL Low [facility] WBC (Bld) [#/Vol] 7.70 10*3/uL [facility] Glucose (Bld) [Mass/Vol]on 0 04-01-2022 Glucose [Mass/Vol] 133 mg/dL High 65 - 99 mg/dL [facility] Interpretation and review of laboratory results Abnormal [facility] Glucose [Mass/Vol] 103 mg/dL High 65 - 99 mg/dL [facility] Interpretation and review of laboratory results Abnormal [facility] Glucose [Mass/Vol] 97 mg/dL 65 - 99 mg/dL [facility] Interpretation and review of laboratory results Normal [facility] [facility] Glucose [Mass/Vol] 95 mg/dL 65 - 99 mg/dL [facility] Interpretation and review of laboratory results Normal [facility] Magnesium Levelon 04-01-2022 Magnesium [Mass/Vol] 1.9 mg/dL 1.6 - 2 .4 mg/dL [facility] Magnesium [Mass/Vol]on 04-01 Interpretation and review of laboratory results Normal [facility] Phosphate [Mass/Vol]on 04-01 Interpretation and review of laboratory results Normal [facility] Phosphoruson 04-01-2022 Phosphate [Mass/Vol] 3.5 mg/dL 2.8 - 4 .1 mg/dL [facility] Basic metabolic 2000 panelon 03-31-2022 Anion gap [Moles/Vol] 17 mmol/L 10 - 2 0 mmol/L [facility] Calcium [Mass/Vol] 8.5 mg/dL 8.4 - 10. 2 mg/dL [facility] Chloride [Moles/Vol] 98 mmol/L 98 - 10 8 mmol/L [facility] Creatinine [Mass/Vol] 1.97 mg/dL High 0.60 - 1.20 mg/dL [facility] GFR/1.73 sq M.predicted CKD-EPI (S/P/Bld) [Vol rate/Area] 26 Low - PINF [facility] Glucose [Mass/Vol] 97 mg/dL 65 - 99 mg/dL [facility] HCO3 [Moles/Vol] 24 mmol/L 21 - 32 mmol/L [facility] Interpretation and review of laboratory results Abnormal [facility] Potassium [Moles/Vol] 4.8 mmol/L 3.5 - 5.1 mmol/L [facility] Sodium [Moles/Vol] 134 mmol/L Low 135 - 145 mmol/L [facility] Urea nitrogen [Mass/Vol] 22 mg/dL 8 - 25 mg/dL [facility] Urea nitrogen/Creatinine [Mass ratio] 11.2 mg/mg 10 - 20 [facility] The eGFR should be u sed for monitoring renal function only and not for medication dosing. [facility] CBC panel Auto (Bld)on 03-31 Erythrocyte distribution width (RBC) [Entitic vol] 16.5 % High 11.6 - 14.8 % [facility] Hematocrit (Bld) [Volume fraction] 34.1 % Low 36 - 46 % [facility] Hemoglobin (Bld) [Mass/Vol] 10.0 g/dL Low 12 - 16 g/dL [facility] Interpretation and review of laboratory results Abnormal [facility] MCH (RBC) [Entitic mass] 24.5 pg Low 26 - 34 pg [facility] MCHC (RBC) [Mass/Vol] 29.3 g/dL Low 31 - 37 g/dL [facility] MCV (RBC) [Entitic vol] 83.6 fL 80 - 100 fL [facility] Nucleated RBC (Bld) [#/Vol] 0.00 10*3/uL [facility] Nucleated RBC/100 WBC (Bld) [Ratio] 0.0 % [facility] Platelet mean volume (Bld) [Entitic vol] 10.0 fL 9.4 - 12.4 fL [facility] Platelets (Bld) [#/Vol] 413 10*3/uL High [facility] RBC (Bld) [#/Vol] 4.08 10*6/uL [facility] ealth WBC (Bld) [#/Vol] 12.23 10*3/uL [facility] EKGon 03-31-2022 Ordered by an unspecified provider. [facility] Glucose (Bld) [Mass/Vol]on 0 03-31-2022 Glucose [Mass/Vol] 119 mg/dL High 65 - 99 mg/dL [facility] Interpretation and review of laboratory results Abnormal [facility] Glucose [Mass/Vol] 113 mg/dL High 65 - 99 mg/dL [facility] Interpretation and review of laboratory results Abnormal [facility] Glucose [Mass/Vol] 121 mg/dL High 65 - 99 mg/dL [facility] Interpretation and review of laboratory results Abnormal [facility] Glucose [Mass/Vol] 114 mg/dL High 65 - 99 mg/dL [facility] Interpretation and review of laboratory results Abnormal [facility] Magnesium Levelon 03-31-2022 Magnesium [Mass/Vol] 1.9 mg/dL 1.6 - 2 .4 mg/dL [facility] Magnesium [Mass/Vol]on 03-31 Interpretation and review of laboratory results Normal [facility] Phosphate [Mass/Vol]on 03-31 Interpretation and review of laboratory results Abnormal [facility] Phosphoruson 05-26-2022 Phosphate [Mass/Vol] 5.2 mg/dL High 2.8 - 4 .1 mg/dL [facility] Troponin OnceOrdered By: Ana Win on 03-31-2022 Delta Difference Troponin T 1 ng/L < = -/+ 7 change [facility] Interp Troponin T Delta Change Probable non-acute cardiac injury or late presentation of acute injury. [facility] Interpretation and review of laboratory results Abnormal [facility] Troponin T 33 ng/L Critically high NINF - 14 ng/L [facility] XR Chest AP/PA and LATon 1. No active pulmonary disease. Workstation ID: [id number] EXAMINATION: TWO XRAY VIEWS OF THE CHEST [...] are noted. There are scattered calcified granulomas. [facility] Magdy Mcintosh MD - 03/31/2022 EXAMINATION: TWO [...] No active pulmonary disease. Workstation ID: [id number] [facility] Radiology Study observation (narrative) [facility] AP/PA and LATOrdere d By: Magdy Mcintosh on 03-31-2022 [facility] Work Phone: APTTon 03-30-2022 aPTT Coag (Bld) [Time] 33 s [facility] Blood type and Indirect anti body screen panel (Bld)on 03-30-2022 ABO and Rh group Nom (Bld) Blood group A Rh(D) positive [facility] Blood group antibody screen Ql Negative [facility] Specimen Expires 04/02/2022 23:59 EST [facility] Glucose (Bld) [Mass/Vol]on 0 03-30-2022 Glucose [Mass/Vol] 105 mg/dL High 65 - 99 mg/dL [facility] Interpretation and review of laboratory results Abnormal [facility] Glucose [Mass/Vol] 131 mg/dL High 65 - 99 mg/dL [facility] Interpretation and review of laboratory results Abnormal [facility] Glucose [Mass/Vol] 145 mg/dL High 65 - 99 mg/dL [facility] Interpretation and review of laboratory results Abnormal [facility] Troponin OnceOrdered By: Hong Davison on 03-30-2022 Interpretation and review of laboratory results Abnormal [facility] Troponin T 32 ng/L Critically high NINF - 14 ng/L [facility] Troponin T Interpretation Possible acute cardiac injury. [facility] aPTT Coag (Bld) [Time]on Interpretation and review of laboratory results Normal [facility] Therapeutic range fo r APTT's is 68 - 104 seconds [facility] No Panel Informationon 12-30 6 min walk [...] 109 O2 2 lpm [facility] HGB + HCTon 07-05-2021 Hematocrit (Bld) [Volume fraction] 35.9 % Low 36.0 - 46.0 [facility] Comment on above: Performed By: #### H H #### [address] [address] Hemoglobin (Bld) [Mass/Vol] 11.3 g/dL Low 12.0 - 16.0 [facility] Comment on above: Performed By: #### H H #### [address] [address] RENAL FUNCTION PANELon 07-05 Albumin [Mass/Vol] 4.0 g/dL Normal 3.4 - 5.0 [facility] Comment on above: Performed By: #### R ENAL #### [address] [address] Anion gap [Moles/Vol] 11 mmol/L Normal 10 - 20 [facility] Comment on above: Performed By: #### R ENAL #### [address] [address] Calcium [Mass/Vol] 8.8 mg/dL Normal 8.6 - 10.3 [facility] Comment on above: Performed By: #### R ENAL #### [address] [address] Chloride [Moles/Vol] 103 mmol/L Normal 98 - 107 [facility] Comment on above: Performed By: #### R ENAL #### [address] [address] Creatinine [Mass/Vol] 1.28 mg/dL High 0.50 - 1.05 [facility] Comment on above: Performed By: #### R ENAL #### [address] [address] GFR- AM. 51 mL/min/1.73m2 Abnormal >60 [facility] Comment on above: Result Comment: CALC ULATIONS OF ESTIMATED GFR ARE PERFORMED USING THE MDRD STUDY EQUATION FOR THE IDMS-TRACEABLE CREATININE METHODS. CLIN CHEM 2007;53:766-72 Performed By: #### R ENAL #### [address] [address] GFR-NON AM. 42 mL/min/1.73m2 Abnormal >60 [facility] Comment on above: Performed By: #### R ENAL #### [address] [address] Glucose [Mass/Vol] 97 mg/dL Normal 74 - 99 [facility] Comment on above: Performed By: #### R ENAL #### [address] [address] HCO3 (Bld) [Moles/Vol] 27 mmol/L Normal 21 - 32 [facility] Comment on above: Performed By: #### R ENAL #### [address] [address] Phosphate [Mass/Vol] 4.0 mg/dL Normal 2.5 - 4.9 [facility] Comment on above: Result Comment: The performance characteristics of phosphorus testing in heparinized plasma have been validated by the individual laboratory site where testing is performed. Testing on heparinized plasma is not approved by the FDA; however, such approval is not necessary. Performed By: #### R ENAL #### [address] [address] Potassium [Moles/Vol] 4.8 mmol/L Normal 3.5 - 5.3 [facility] Comment on above: Performed By: #### R ENAL #### [address] [address] Sodium [Moles/Vol] 136 mmol/L Normal 136 - 145 [facility] Comment on above: Performed By: #### R ENAL #### [address] [address] Urea nitrogen [Mass/Vol] 32 mg/dL High 6 - 23 [facility] Comment on above: Performed By: #### R ENAL #### [address] [address] TOTAL PROTEIN, URINE SPOTon 07-05-2021 CREATININE,URINE 37.0 mg/dL Normal 20.0 - 320.0 [facility] Comment on above: Performed By: #### T PS2 #### [address] [address] T. PROTEIN/CREAT RATIO 0.32 mg/mg Creat High 0.00 - 0.17 [facility] Comment on above: Performed By: #### T PS2 #### [address] [address] TOTAL PROT,URINE SPOT 12 mg/dL Normal 5 - 24 [facility] Comment on above: Performed By: #### T PS2 #### [address] [address] KAPPA/LAMBDA FREE LIGHT Aaron VILLA 06-20-2021 FREE KAPPA LIGHT CHAINS,S 5.60 mg/dL High 0.33 - 1.94 [facility] Comment on above: Performed By: #### K STEWART #### [facility] [address] [place] [address] FREE KAPPA/LAMBDA RATIO,S 1.19 Normal 0.26 - 1.65 [facility] Comment on above: Result Comment: Unde [...] laboratory. Performed By: #### K STEWART #### [facility] [address] [place] [address] FREE LAMBDA LIGHT CHAIN,S 4.72 mg/dL High 0.57 - 2.63 [facility] Comment on above: Performed By: #### K STEWART #### [facility] [address] [place] [address] CBCon 06-18-2021 Erythrocyte distribution width (RBC) [Ratio] 18.8 % High 11.5 - 14.5 [facility] Comment on above: Performed By: #### C BC #### [address] [address] Hematocrit (Bld) [Volume fraction] 35.3 % Low 36.0 - 46.0 [facility] Comment on above: Performed By: #### C BC #### [address] [address] Hemoglobin (Bld) [Mass/Vol] 10.9 g/dL Low 12.0 - 16.0 [facility] Comment on above: Performed By: #### C BC #### [address] [address] MCHC (RBC) [Mass/Vol] 31.0 g/dL Low 32.0 - 36.0 [facility] Comment on above: Performed By: #### C BC #### [address] [address] MCV (RBC) [Entitic vol] 78 fL Low 80 - 100 [facility] Comment on above: Performed By: #### C BC #### [address] [address] Platelets (Bld) [#/Vol] 291 10*3/uL Normal 150 - 450 [facility] Comment on above: Performed By: #### C BC #### [address] [address] RBC 4.49 x10E12/L Normal 4.00 - 5.20 [facility] Comment on above: Performed By: #### C BC #### [address] [address] WBC (Bld) [#/Vol] 7.1 10*3/uL Normal 4.4 - 11.3 [facility] Comment on above: Performed By: #### C BC #### [address] [address] COMPREHENSIVE PANELon 2020 Albumin [Mass/Vol] 3.9 g/dL Normal 3.4 - 5.0 [facility] Comment on above: Performed By: #### C MP #### [address] [address] ALP [Catalytic activity/Vol] 62 U/L Normal 33 - 136 [facility] Comment on above: Performed By: #### C MP #### [address] [address] ALT [Catalytic activity/Vol] 13 U/L Normal 7 - 45 [facility] Comment on above: Result Comment: Michelle ents treated with Sulfasalazine may generate falsely decreased results for ALT. Performed By: #### C MP #### [place] [id number] Anion gap [Moles/Vol] 12 mmol/L Normal 10 - 20 [facility] Comment on above: Performed By: #### C MP #### [address] [address] AST [Catalytic activity/Vol] 14 U/L Normal 9 - 39 [facility] Comment on above: Performed By: #### C MP #### [address] [address] Bilirubin [Mass/Vol] 0.3 mg/dL Normal 0.0 - 1.2 [facility] Comment on above: Performed By: #### C MP #### [address] [address] Calcium [Mass/Vol] 9.0 mg/dL Normal 8.6 - 10.3 [facility] Comment on above: Performed By: #### C MP #### [address] [address] Chloride [Moles/Vol] 101 mmol/L Normal 98 - 107 [facility] Comment on above: Performed By: #### C MP #### [address] [address] Creatinine [Mass/Vol] 1.68 mg/dL High 0.50 - 1.05 [facility] Comment on above: Performed By: #### C MP #### [address] [address] GFR- AM. 38 mL/min/1.73m2 Abnormal >60 [facility] Comment on above: Result Comment: CALC ULATIONS OF ESTIMATED GFR ARE PERFORMED USING THE MDRD STUDY EQUATION FOR THE IDMS-TRACEABLE CREATININE METHODS. CLIN CHEM 2007;53:766-72 Performed By: #### C MP #### [address] [address] GFR-NON AM. 31 mL/min/1.73m2 Abnormal >60 [facility] Comment on above: Performed By: #### C MP #### [address] [address] Glucose [Mass/Vol] 89 mg/dL Normal 74 - 99 [facility] Comment on above: Performed By: #### C MP #### [address] [address] HCO3 (Bld) [Moles/Vol] 24 mmol/L Normal 21 - 32 [facility] Comment on above: Performed By: #### C MP #### [address] [address] Potassium [Moles/Vol] 5.0 mmol/L Normal 3.5 - 5.3 [facility] Comment on above: Performed By: #### C MP #### [address] [address] Protein [Mass/Vol] 7.1 g/dL Normal 6.4 - 8.2 [facility] Comment on above: Performed By: #### C MP #### [address] [address] Sodium [Moles/Vol] 132 mmol/L Low 136 - 145 [facility] Comment on above: Performed By: #### C MP #### [address] [address] Urea nitrogen [Mass/Vol] 45 mg/dL High 6 - 23 [facility] Comment on above: Performed By: #### C MP #### [address] [address] FOLATE, SERUMon 06-18-2021 Folate [Mass/Vol] 11.9 ng/mL Normal >5.0 [facility] Comment on above: Result Comment: Low <3.4 Borderline 3.4-5.0 Normal >5.0 . Patients receiving more than 5 mg/day of biotin may have interference in test results. A sample should be taken no sooner than eight hours after previous dose. Contact the testing laboratory for additional information. Performed By: #### F OLA2 #### [address] [address] TSHon 06-18-2021 TSH Qn 1.76 m[IU]/L Normal 0.44 - 3.98 [facility] Comment on above: Result Comment: TSH testing is performed using different testing methodology at [facility] than at other [place] [facility]. Direct result comparisons should only be made within the same method. Performed By: #### T SH2 #### [address] [address] VITAMIN B12on 06-18-2021 Cobalamin (Vitamin B12) [Mass/Vol] 467 pg/mL Normal 211 - 911 [facility] Comment on above: Performed By: #### V TB12 #### [address] [address] PT Progress Noteon PT Progress Note Therapy [...] secs on/20 off with lbs as tolerated. MOBILE EQUIPMENT MECHANIC can also manual distraction and soft tissue [...] with pain, flexion chin to chest MMT: [facility] PALPATION: defer (more content not included)... Normal [facility] Basic metabolic 2000 panelOr dered By: Georgie Vázquez on 04-14-2021 Anion gap [Moles/Vol] 12 mmol/L 10 - 2 0 mmol/L [facility] Calcium [Mass/Vol] 9.2 mg/dL 8.4 - 10. 2 mg/dL [facility] Chloride [Moles/Vol] 104 mmol/L 98 - 10 8 mmol/L [facility] Creatinine [Mass/Vol] 1.77 mg/dL High 0.60 - 1.20 [facility] GFR/1.73 sq M.predicted CKD-EPI (S/P/Bld) [Vol rate/Area] 30 Low >=60 mL/min/1.73 m2 [facility] Glucose [Mass/Vol] 112 mg/dL High 65 - 99 mg/dL [facility] HCO3 [Moles/Vol] 25 mmol/L 21 - 32 mmol/L [facility] Potassium [Moles/Vol] 4.8 mmol/L 3.5 - 5.1 mmol/L [facility] Sodium [Moles/Vol] 136 mmol/L 135 - 145 mmol/L [facility] Urea nitrogen [Mass/Vol] 35 mg/dL High 8 - 25 mg/dL [facility] Urea nitrogen/Creatinine [Mass ratio] 19.8 mg/mg [facility] The eGFR should be u sed for monitoring renal function only and not for medication dosing. [facility] CBC WITH AUTO DIFFERENTIALOr dered By: Georgie Vázquez on 04-14-2021 Basophils (Bld) [#/Vol] 0.07 10*3/uL [facility] Basophils/100 WBC (Bld) 1.0 % [facility] Eosinophils (Bld) [#/Vol] 0.12 10*3/uL [facility] Eosinophils/100 WBC (Bld) 1.6 % [facility] Erythrocyte distribution width (RBC) [Entitic vol] 17.5 % High 11.6 - 14.8 % [facility] Hematocrit (Bld) [Volume fraction] 39.6 % 36.0 - 46.0 % [facility] Hemoglobin (Bld) [Mass/Vol] 12.0 g/dL 12.0 - 16.0 g/dL [facility] Immature granulocytes (Bld) [#/Vol] 0.02 10*3/uL [facility] Immature granulocytes/100 WBC (Bld) 0.30 % [facility] Comment on above: The IG parameter is the percentage of metamyelocytes, myelocytes and promyelocytes. An immature granulocyte count (IG) of 1% or more suggests the possibility of infection, an IG count of 3% is very likely related to an infection. Interpretation and review of laboratory results Abnormal [facility] Lymphocytes (Bld) [#/Vol] 1.44 10*3/uL [facility] Lymphocytes/100 WBC (Bld) 19.6 % [facility] MCH (RBC) [Entitic mass] 24.0 pg Low 26.0 - 34.0 pg [facility] MCHC (RBC) [Mass/Vol] 30.3 g/dL Low 31.0 - 37.0 g/dL [facility] MCV (RBC) [Entitic vol] 79.4 fL Low 80.0 - 100.0 fL [facility] Monocytes (Bld) [#/Vol] 0.52 10*3/uL [facility] Monocytes/100 WBC (Bld) 7.1 % [facility] Neutrophils (Bld) [#/Vol] 5.16 10*3/uL [facility] Neutrophils/100 WBC (Bld) 70.4 % [facility] Nucleated RBC (Bld) [#/Vol] 0.00 10*3/uL [facility] Nucleated RBC/100 WBC (Bld) [Ratio] 0.0 % [facility] Platelet mean volume (Bld) [Entitic vol] 10.9 fL 9.4 - 12.4 fL [facility] Platelets (Bld) [#/Vol] 282 10*3/uL [facility] RBC (Bld) [#/Vol] 4.99 10*6/uL [facility] eah WBC (Bld) [#/Vol] 7.33 10*3/uL [facility] NO MBOrdered By: Georgie Vázquez on 04-14-2021 CK [Catalytic activity/Vol] 1936 U/L High 40 - 170 U/L [facility] Gold TopOrdered By: Georgie carey on 04-14-2021 Extra Tube Hold for add-ons. [facility] Comment on above: Auto resulted. [facility] Magnesium LevelOrdered By: Damari Vzáquez on 04-14-2021 Magnesium [Mass/Vol] 2.2 mg/dL 1.6 - 2 .4 mg/dL [facility] Magnesium [Mass/Vol]Ordered By: Georgie Vázquez on 04-14-2021 [facility] No Panel InformationOrdered By: Georgie Vázquez on 04-14-2021 Extra Tube Hold for add-ons. [facility] Comment on above: Auto resulted. [facility] Extra Tube Hold for add-ons. [facility] Comment on above: Auto resulted. [facility] Interpretation and review of laboratory results Abnormal [facility] Interpretation and review of laboratory results Normal [facility] PhosphorusOrdered By: Georgie Vázquez on 04-14-2021 Phosphate [Mass/Vol] 3.5 mg/dL 2.8 - 4 .1 mg/dL [facility] Therapy Communicationon Therapy Communication Message RADHA SHAFER no showed today . No voicemail set up. Signatures Electronically signed by : Anjana Hernandez PTA; Apr 14 2021 4:45PM EST (Author) Normal [facility] URINALYSISOrdered By: Georgie Vázquez on 04-14-2021 Bacteria Auto Ql (U) None Seen None Se en /hpf [facility] Clarity Refractometry automated (U) Clear Clear [facility] Color (U) Yellow Colorless, Yellow [facility] Glucose Auto test strip (U) [Mass/Vol] Negative Negative mg/dL [facility] Ketones (U) [Mass/Vol] Negative Negat radha mg/dL [facility] Leukocyte esterase Auto test strip Ql (U) Negative Negative [facility] pH (U) 5.5 [pH] [facility] Specific gravity (U) [Rel density] 1.014 [facility] UrinalysisOrdered By: Georgie Vázquez on 04-14-2021 Bilirubin Ql (U) Negative Negative [facility] th Epithelial cells.squamous Auto (Urine sed) [#/Area] <1 [facility] Hemoglobin Auto test strip Ql (U) Small Abnormal Negative [facility] Interpretation and review of laboratory results Abnormal [facility] Mucus Auto (Urine sed) [#/Area] Rare None Seen, Rare /lpf [facility] Nitrite Auto test strip Ql (U) Negative Negative [facility] Protein (U) [Mass/Vol] 30 mg/dL Abnormal Negat radha mg/dL [facility] Comment on above: False positive resul ts may occur in urines with large amounts of hemoglobin, pH greater than 8.0, contrast medium, or disinfectants including ammonium compounds. Urobilinogen (U) [Mass/Vol] mg/dL <2.0 mg/dL [facility] WBC Auto (Urine sed) [#/Area] 1 [facility] Microscopic examinat ion is performed on all urinalysis samples and only positive findings are reported. The test for blood on the chemical analytic portion of urinalysis may also be positive due to hemoglobinuria and myoglobinuria and if red blood cells are present they are quantified by microscopic examination. [facility] Therapy Communicationon Therapy Communication Message RADHA [...] secs on/20 off with lbs as tolerated. [employer]CH[employer]IC can also manual distraction and soft tissue [...] code time is 50 minutes. Therapeutic exercise (20613): timed minutes 25, units 2 . UBE L2 3'fwd/3''bwd scap retraction 2x10 (X) bwd shoulder rolls 2x10 (X) UT stretch 20 x2 B (X) LS stretch 20 x2B (X) chin tucks supine 2x10 3 hold cervical rotation supine x10 each supine B ER pull aparts orange x10 (X) supine B H abd pull aparts orange x10 (X). Manual Therapy (23846): timed minutes 10, units 1 . STW to B UT, LS, SCM, paraspinals. Modalities: untimed minutes 15, units 1 . Intermittent Mechanical Traction: 20#/10# on 30/10 cycle x 15 mins 6step progressive/regressive. 'Scores and Scales' Signatures Electronically signed by : Eli Alexander [employer]BI[employer] EQUIPMENT MECHANIC; Apr 09 2021 4:58PM EST (Author) Electronically signed by : Elana Westbrook PT; Apr 15 2021 9:11AM EST Normal [...] secs on/20 off with lbs as tolerated. [employer]BI[employer] MECH[employer]IC can also manual distraction and soft tissue [...] Patient continues to present with cervical tightness/restriction, [employer]BI[employer] MECH[employer]IC notes palpable increase in tissue density throughout [...] in clinic is 58 minutes. Therapeutic exercise (97980): timed minutes 30, units 2 . UBE L2 2'fwd/2'bwd scap retraction 2x10 bwd shoulder rolls 2x10 UT stretch 20 x2 B LS stretch 20 x2B chin tucks supine 2x10 3 hold cervical rotation supine x10 each supine B ER pull aparts orange x10 supine B H abd pull aparts orange x10. Manual Therapy (53079): timed minutes 10, units 1 . STW to B UT, LS, SCM, paraspinals. Modalities: untimed minutes 15, units 1 . Intermittent Mechanical Traction: 20#/10# on 30/10 cycle x 15 mins 6step progressive/regressive. 'Scores and Scales' Signatures Electronically signed by : River Sweeney PTA; Apr 01 2021 7:45AM EST (Author) Electronically signed by : Elana Westbrook PT; Apr 06 2021 3:40PM EST Normal [facility] Therapy Communicationon 03-07 Therapy Communication Message RADHA HOLLIS canceled today . Signatures Electronically signed by : Anjana Hernandez PTA; Mar 29 2021 2:14PM EST (Author) Normal [facility] Study Course PT Progress Noteon PT Progress Note Therapy [...] secs on/20 off with lbs as tolerated. [employer]BI[employer]CH[employer]IC can also manual distraction and soft tissue [...] code time is 40 minutes. Therapeutic exercise (38851): timed minutes 30, units 2 . UBE L2 2'fwd/2'bwd scap retraction 2x10 bwd shoulder rolls 2x10 UT stretch 20 x2 B LS stretch 20 x2B chin tucks supine 2x10 3 hold cervical rotation supine x5 each supine B ER pull aparts orange x10 supine B H abd pull aparts orange x10. Manual Therapy (34518): timed minutes 10, units 1 . STW to B UT, LS, SCM, paraspinals. Modalities: untimed minutes 15, units 1 . Intermittent Mechanical Traction: 20#/10# on 30/10 cycle x 15 mins 6step progressive/regressive. 'Scores and Scales' Signatures Electronically signed by : River Sweeney MOBILE EQUIPMENT MECHANIC; Mar 26 2021 4:31PM EST (Author) Electronically signed by : Elana Westbrook, PT; Mar 31 2021 11:38AM EST Normal [facility] PT Progress Noteon 1 PT Progress Note [...] secs on/20 off with lbs as tolerated. MOBILE EQUIPMENT MECHANIC can also manual distraction and soft tissue [...] code time is 38 minutes. Therapeutic exercise (93138): timed minutes 30, units 2 . UBE L2 2'fwd/2'bwd scap retraction 2x10 bwd shoulder rolls 2x10 UT stretch 20 x2 B LS stretch 20 x2B chin tucks supine 2x10 3 hold cervical rotation supine x5 each supine B ER pull aparts orange x10 supine B H abd pull aparts orange x10. Manual Therapy (85926): timed minutes 8, units 1 . STW to B UT, LS, SCM, paraspinals. Modalities: untimed minutes 14, units 1 . mechanical traction intermittent with 30 secs on/20 off with 20 lbs , 2 step, 50% rope speed. 'Scores and Scales' Signatures Electronically signed by : Anjana Hernandez MOBILE EQUIPMENT MECHANIC; Mar 24 2021 5:37PM EST (Author) Electronically signed by : Elana Westbrook, PT; Mar 31 2021 11:38AM EST Normal [facility] PT Initial Evaluationon 03-06 PT Initial Evaluation [...] secs on/20 off with lbs as tolerated. MOBILE EQUIPMENT MECHANIC can also manual distraction and soft tissue [...] aren't converted (more content not included)... Normal [facility] Therapy Communicationon 11-07 Therapy Communication Message RADHA SHAFER was (D/C)- last seen: . eval only-patient never called back to schedule, a VM was left at 1022am on 10-20-20. Will discharge at this tiem. Signatures Electronically signed by : Elana Westbrook PT; Nov 25 2020 7:37AM EST (Author) Normal [facility] [place] ORT LARGE JOINT ARTHROCEN TESISon 11-09-2020 John Marcial NP 11/09/2020 10:32 AM LG Jt Injection/Arthrocentesi s: R knee Performed by: Flori Rodrigues CNP Authorized by: Flori Rodrigues CNP CPT 88952 - Large Joint Arthrocentesis: Consent given by: [...] the procedure well with no immediate complications [facility] XR Knee Right 4+VWS (Note in Comments)on 11-09-2020 No acute right knee abnormality. Degenerative joint disease findings are present. Previous left knee replacement is noted. [employer] Workstation ID: [id number] [facility] EXAMINATION: XR KNEE RIGHT 4+ VIEWS (SPECIFY [...] replacement is noted without evidence displacement disruption. [facility] Interface, Rad In Fu ji Speechq - [...] replacement is noted. RWA/ges Workstation ID: [id number] [facility] XR Knee Right 2 Views (Stand madeleine)on 11-02-2020 FINDINGS/ 1. Moderat e medial and patellofemoral compartment and mild lateral compartment osteoarthrosis is noted in the right knee, with joint space narrowing and small marginal osteophytes. Superior patellar enthesophyte is noted. 2. No fracture, malalignment, or other acute bony abnormality is seen. 3. Small right knee joint effusion is suspected. Workstation ID: [id number] [facility] EXAMINATION: XR KNEE RIGHT 2 VIEWS (STANDARD) 11/02/2020 1:48 pm HISTORY: ORDERING SYSTEM PROVIDED HISTORY: pain, TECHNOLOGIST PROVIDED HISTORY: Illness/Other Reason for exam: Right knee pain x 5 days Cancer History: thyroid Surgery, RadiationHistory: bilateral thyroidectomy Encounter Type: Initial Additional signs and symptoms: No known injury ORDERING SYSTEM PROVIDED DIAGNOSIS CODES: COMPARISON: 06/09/2013 [facility] Critical access hospital - 11/02/2020 2:04 PM EST EXAMINATION: XR [...] joint effusion is suspected. Workstation ID: [id number] [facility] PT Initial Evaluationon PT Initial Evaluation Therapy [...] Normal [facility] [place] ORT LARGE JOINT ARTHROCEN [facility] 09-15-2020 Rivas Jules MD 09/15/2020 3:06 PM LG Jt Injection/Arthrocentesi s: R subacromial bursa Performed by: Rivas Jules MD Authorized by: Rivas Jules MD CPT 88644 - Large Joint Arthrocentesis: Consent given by: Patient Timeout performed at: 09/15/2020 3:05 PM Physician or proceduralist has discussed critical or nonroutine steps, procedure duration and anticipated blood loss: Yes Supporting Documentation: Indications: Pain Procedure Details: Location: Shoulder Site: R subacromial bursa Needle size: 22 G Medications: 40 mg methylPREDNISolone acetate 40 mg/mL Anesthetic used: Lidocaine 1% [facility] XR Shoulder Right 1 Viewon 1 11-15-2019 Postsurgical and degenerative changes without acute osseous abnormality. Workstation ID: [id number] [facility] EXAMINATION: XR SHOULDER RIGHT 1 VIEW 09/15/2020 [...] subacromial spur. Calcifications overlie the right hemithorax. [facility] Interface, Rad In Fu ji Speechq - [...] without acute osseous abnormality. Workstation ID: [id number] [facility] Ultrasound ankle / brachial indices extremity completeon 05-15-2020 Patient Info Name: RADHA SHAFER Age: 60 years : 1960 Gender: Female Exam Date: 05/15/2020 2:11 PM Site Location: [facility] Patient Status: Outpatient Staff Ordering Physician: ELANA PENA Ophthalmic Assistant: Kia Peacock RVT Referring Physician: ELANA PENA ; Indications I73.9 - Peripheral vascular disease, unspecified Procedure Description 18357 Limited bilateral noninvasive physiologic studies of upper [...] Jacobsen MD, RPVI on 05/15/2020 05:02 PM [facility] Interface, Rad In Heartlab Xper [facility] - 05/15/2020 5:03 PM EDT Patient Info Name: RADHA SHAFER Age: 60 years : 1960 Gender: Female Exam Date: 05/15/2020 2:11 PM Site Location: [facility] Patient Status: Outpatient Staff Ordering Physician: ELANA PENA Ophthalmic Assistant: Kia Peacock RVT Referring Physician: ELANA PENA ; Indications I73.9 - Peripheral vascular disease, unspecified Procedure Description 77698 Limited bilateral noninvasive physiologic studies of upper [...] Jacobsen MD, RPVI on 05/15/2020 05:02 PM [facility] XR Foot 3+ Views Righton XR Foot 3+ Views Right Exam Date/Time: 07/24/2019 16:05 EDT Reason for Exam: pain in right foot Report STUDY: XR Foot 3+ Views Right; 07/24/2019 4:05 pm INDICATION: pain in right foot. COMPARISON: None. ACCESSION NUMBER(S): [id number] ORDERING CLINICIAN: Rusty Dozier TECHNIQUE: Three views [...] Signed by: Uriah Elizalde MD Technologist: VINNY [facility] ECHOCARDIOGRAM COMPLETEon Transthoracic Echocardiogram _ Patient: HOLLIS Benitez [facility] Rec#: [id number] (Age): 1960(59y) Height: 165.1(cm)/64(in Study Date: 05/07/2019 Weight: 93.44(kg)/206(l Room#: MOB BSA: [id number] Type: Outpatient Loc: Echo Room 1 Sex: F _ Reading: Eleonora Sawyer MD Referring: WHITLEY Kaufman M.D. Ophthalmic Assistant: Rina Shay RN, [facility] History: Cancer. -thyroidCOPD. Hypertension. Hypothyroidism. Renal [...] at 05/07/2019 16:22:37 by: Eleonora Sawyer MD [facility] Interface, Rad In Heartlab Xper [facility] - 05/07/2019 4:40 PM EDT Transthoracic Echocardiogram _ Patient: HOLLIS Benitez [facility] Rec#: [id number] (Age): 1960(59y) Height: 165.1(cm)/64(in Study Date: 05/07/2019 Weight: 93.44(kg)/206(l Room#: MOB BSA: [id number] Type: Outpatient Loc: Echo Room 1 Sex: F _ Reading: Eleonora Sawyer MD Referring: WHITLEY Kaufman M.D. Ophthalmic Assistant: Rina Shay RN, [facility] History: Cancer. -thyroidCOPD. Hypertension. Hypothyroidism. Renal [...] at 05/07/2019 16:22:37 by: Eleonora Sawyer MD [facility] Otheron 05-07-2019 Extra Tube Hold for add-ons. [facility] Comment on above: Auto resulted. ECG 12-LEADon 04-05-2019 Atrial Rate [facility] P [place] [facility] P-R Interval [facility] Q-T Interval [facility] Q-T Interval (corrected) [facility] QRS Duration [facility] QTC Calculation (Bezet) O hioHeal R [place] [facility] T [place] [facility] Ventricular Rate [facility] th Albuminon 02-13-2019 Albumin [Mass/Vol] 4.0 g/dL Normal 3.4-5.0 [facility] Comment on above: Performed By: #### 2 [id number] #### [facility] [address] [place] [address] BUNon 02-13-2019 Urea nitrogen [Mass/Vol] 23 mg/dL Normal 6-23 [facility] Comment on above: Performed By: #### 2 [id number] #### [facility] [address] [place] [address] Calciumon 02-13-2019 Calcium [Mass/Vol] 9.1 mg/dL Normal 8.6-10.3 [facility] Comment on above: Performed By: #### 2 [id number] #### [facility] [address] [place] [address] Creatinineon 02-13-2019 Creatinine [Mass/Vol] 1.4 mg/dL High 0.5-1.1 [facility] Comment on above: Performed By: #### 2 [id number] #### [facility] [address] [place] [address] Hct & Hgbon 02-13-2019 Hematocrit (Bld) [Volume fraction] 38.3 % Normal 36.0-48.0 [facility] Comment on above: Performed By: #### 1 [id number] #### [facility] [address] [place] [address] Hemoglobin (Bld) [Mass/Vol] 12.1 g/dL Normal 12.0-16.0 [facility] Comment on above: Performed By: #### 1 [id number] #### [facility] [address] [place] [address] Lyteson 02-13-2019 Anion gap [Moles/Vol] 11 mmol/L Normal 10-20 [facility] Comment on above: Performed By: #### 2 655607 #### [facility] [address] [place] [address] Chloride [Moles/Vol] 103 mmol/L Normal 98-107 [facility] Comment on above: Performed By: #### 2 [id number] #### [facility] [address] [place] [address] CO2 [Moles/Vol] 28.0 mmol/L Normal 21.0-32.0 [facility] Comment on above: Performed By: #### 2 826873 #### [facility] [address] [place] [address] Potassium [Moles/Vol] 4.8 mmol/L Normal 3.5-5.3 [facility] Comment on above: Performed By: #### 2 253103 #### [facility] [address] [place] [address] Sodium [Moles/Vol] 137 mmol/L Normal 136-145 [facility] Comment on above: Performed By: #### 2 [id number] #### [facility] [address] [place] [address] Phosphoruson 02-13-2019 Phosphate [Mass/Vol] 4.0 mg/dL Normal 2.5-4.9 [facility] Comment on above: Performed By: #### 2 252691 #### [facility] [address] [place] [address] U Creatinineon 02-13-2019 U Creatinine 39 mg/dL Normal 20-300 [facility] Comment on above: Performed By: #### 2 100939 #### [facility] [address] [place] [address] U Proteinon 02-13-2019 Protein [Mass/Vol] 18 mg/dL High 1-14 [facility] Comment on above: Performed By: #### 1 [id number] #### [facility] [address] [place] [address] eGFRon 02-13-2019 GFR/1.73 sq M predicted among non-blacks MDRD (S/P/Bld) [Vol rate/Area] 45 mL/min/1.73 m2 [facility] Comment on above: Order Comment: Order added by Discern Expert. Performed By: #### 1 [id number] #### [facility] [address] [place] [address] GFR/1.73 sq M predicted among non-blacks MDRD (S/P/Bld) [Vol rate/Area] 37 mL/min/1.73 m2 [facility] Comment on above: Order Comment: Order added by Discern Expert. Performed By: #### 1 [id number] #### [facility] [place] [address] XR Hip 2-3 Views Right + Pel vison 01-24-2019 XR Hip 2-3 Views Right + Pelvis Exam Date/Time: 01/23/2019 13:20 EDT Reason for Exam: pain in right hip Report STUDY: XR Hip 2-3 Views Right + Pelvis;; 01/23/2019 1:20 pm INDICATION: pain in right hip. COMPARISON: None. ACCESSION NUMBER(S): [id number] ORDERING CLINICIAN: Rusty Dozier FINDINGS: Pelvis and [...] by: Jair Santos MD Technologist: DAVEY Normal [facility] Comprehensive Metabolic Pane jett 12-01-2018 Albumin mass conc 3.0 g/dL Low 3.2-5.2 [facility] Comment on above: Performed By: #### C BCWOD, PT, PTT, DDIMR, EDCTNI, NTPROBNP, CHEM8, LIPASE, CMETADD #### Unless otherwise noted, all testing performed by [place] [address] CLIA: [id number] Lithograph Operator: Maurice Coello M.D. ALP enzyme act/vol 88 U/L Normal 40-150 [facility] [place] [facility] Comment on above: Performed By: #### C BCWOD, PT, PTT, DDIMR, EDCTNI, NTPROBNP, CHEM8, LIPASE, CMETADD #### Unless otherwise noted, all testing performed by [place] [address] CLIA: [id number] Lithograph Operator: Maurice Coello M.D. ALT enzyme act/vol 34 U/L Normal 14-65 [facility] [place] [facility] Comment on above: Result Comment: This test result might be falsely depressed or falsely elevated on samples drawn from patients taking Sulfasalazine and Sulfapyridine. Venipuncture should occur prior to taking either of these drugs. Performed By: #### C BCWOD, PT, PTT, DDIMR, EDCTNI, NTPROBNP, CHEM8, LIPASE, CMETADD #### Unless otherwise noted, all testing performed by [place] [address] CLIA: [id number] Lithograph Operator: Maurice Coello M.D. AST enzyme act/vol 67 U/L High 0-45 [facility] [place] [facility] Comment on above: Result Comment: This test result might be falsely depressed or falsely elevated on samples drawn from patients taking Sulfasalazine and Sulfapyridine. Venipuncture should occur prior to taking either of these drugs. Performed By: #### C BCWOD, PT, PTT, DDIMR, EDCTNI, NTPROBNP, CHEM8, LIPASE, CMETADD #### Unless otherwise noted, all testing performed by [place] [address] CLIA: [id number] Lithograph Operator: Maurice Coello M.D. Bilirubin mass conc 0.3 mg/dL Normal 0.3-1.2 [facility] Comment on above: Performed By: #### C BCWOD, PT, PTT, DDIMR, EDCTNI, NTPROBNP, CHEM8, LIPASE, CMETADD #### Unless otherwise noted, all testing performed by [place] [address] CLIA: [id number] Lithograph Operator: Maurice Coello M.D. Calcium mass conc 8.6 mg/dL Normal 8.4-10.2 [facility] Comment on above: Performed By: #### C BCWOD, PT, PTT, DDIMR, EDCTNI, NTPROBNP, CHEM8, LIPASE, CMETADD #### Unless otherwise noted, all testing performed by [place] [address] CLIA: [id number] Lithograph Operator: Maurice Coello M.D. Chloride molar conc 112 mmol/L High 98-108 [facility] Comment on above: Performed By: #### C BCWOD, PT, PTT, DDIMR, EDCTNI, NTPROBNP, CHEM8, LIPASE, CMETADD #### Unless otherwise noted, all testing performed by [place] [address] CLIA: [id number] Lithograph Operator: Maurice Coello M.D. CO2 molar conc 21 mmol/L Normal 21-32 [facility] Comment on above: Performed By: #### C BCWOD, PT, PTT, DDIMR, EDCTNI, NTPROBNP, CHEM8, LIPASE, CMETADD #### Unless otherwise noted, all testing performed by [place] [address] CLIA: [id number] Lithograph Operator: Maurice Coello M.D. Creatinine mass conc 1.28 mg/dL High 0.40-1.10 [facility] Comment on above: Performed By: #### C BCWOD, PT, PTT, DDIMR, EDCTNI, NTPROBNP, CHEM8, LIPASE, CMETADD #### Unless otherwise noted, all testing performed by [place] [address] CLIA: [id number] Lithograph Operator: Maurice Coello M.D. GFR/1.73 sq M predicted among blacks MDRD vol rate/area (S/P/Bld) 51 mL/min/{1.73_m2} Low >60 [facility] Comment on above: Result Comment: Afri can Cuban GFR Calc Performed By: #### C BCWOD, PT, PTT, DDIMR, EDCTNI, NTPROBNP, CHEM8, LIPASE, CMETADD #### Unless otherwise noted, all testing performed by [place] [address] CLIA: [id number] Lithograph Operator: Maurice Coello M.D. GFR/1.73 sq M predicted among non-blacks MDRD vol rate/area (S/P/Bld) 42 mL/min/{1.73_m2} Low >60 [facility] Comment on above: Result Comment: Non- [...] Unless otherwise noted, all testing performed by [place] [address] CLIA: [id number] Lithograph Operator: Maurice Coello M.D. Glucose mass conc 88 mg/dL Normal 70-99 [facility] Comment on above: Result Comment: This test result might be falsely depressed or falsely elevated on samples drawn from patients taking Sulfasalazine and Sulfapyridine. Venipuncture should occur prior to taking either of these drugs. Performed By: #### C BCWOD, PT, PTT, DDIMR, EDCTNI, NTPROBNP, CHEM8, LIPASE, CMETADD #### Unless otherwise noted, all testing performed by [place] [phone] CLIA: [id number] Lithograph Operator: Maurice Coello M.D. Potassium molar conc 4.0 mmol/L Normal 3.5-5.1 [facility] Comment on above: Performed By: #### C BCWOD, PT, PTT, DDIMR, EDCTNI, NTPROBNP, CHEM8, LIPASE, CMETADD #### Unless otherwise noted, all testing performed by [place] [address] CLIA: [id number] Lithograph Operator: Maurice Coello M.D. Protein mass conc 7.0 g/dL Normal 6.0-8.0 [facility] Comment on above: Performed By: #### C BCWOD, PT, PTT, DDIMR, EDCTNI, NTPROBNP, CHEM8, LIPASE, CMETADD #### Unless otherwise noted, all testing performed by [place] [address] CLIA: [id number] Lithograph Operator: Maurice Coello M.D. Sodium molar conc 139 mmol/L Normal 135-145 [facility] Comment on above: Performed By: #### C BCWOD, PT, PTT, DDIMR, EDCTNI, NTPROBNP, CHEM8, LIPASE, CMETADD #### Unless otherwise noted, all testing performed by [place] [address] CLIA: [id number] Lithograph Operator: Maurice Coello M.D. Urea nitrogen mass conc 7 mg/dL Low 8-25 O [facility] Comment on above: Performed By: #### C BCWOD, PT, PTT, DDIMR, EDCTNI, NTPROBNP, CHEM8, LIPASE, CMETADD #### Unless otherwise noted, all testing performed by [place] [address] CLIA: [id number] Lithograph Operator: Maurice Coello M.D. BUN and Creatinineon 019 Creatinine mass conc 1.44 mg/dL High 0.40-1.10 [facility] Comment on above: Performed By: #### C BCWOD, PT, PTT, DDIMR, EDCTNI, NTPROBNP, CHEM8, LIPASE, CMETADD #### Unless otherwise noted, all testing performed by [place] [address] CLIA: [id number] Lithograph Operator: Maurice Coello M.D. GFR/1.73 sq M predicted among blacks MDRD vol rate/area (S/P/Bld) 45 mL/min/{1.73_m2} Low >60 [facility] Comment on above: Result Comment: Afri can Cuban GFR Calc Performed By: #### C BCWOD, PT, PTT, DDIMR, EDCTNI, NTPROBNP, CHEM8, LIPASE, CMETADD #### Unless otherwise noted, all testing performed by [place] [id number] CLIA: [id number] Lithograph Operator: Maurice Coello M.D. GFR/1.73 sq M predicted among non-blacks MDRD vol rate/area (S/P/Bld) 37 mL/min/{1.73_m2} Low >60 [facility] Comment on above: Result Comment: Non- [...] Unless otherwise noted, all testing performed by [place] [address] CLIA: [id number] Lithograph Operator: Maurice Coello M.D. Urea nitrogen mass conc 13 mg/dL Normal 8-25 O [facility] Comment on above: Performed By: #### C BCWOD, PT, PTT, DDIMR, EDCTNI, NTPROBNP, CHEM8, LIPASE, CMETADD #### Unless otherwise noted, all testing performed by [place] [address] CLIA: [id number] Lithograph Operator: Maurice Coello M.D. C. difficile Assayon 019 C. difficile interpretation Negative Normal [facility] Comment on above: Result Comment: Rapi d test procedural control acceptable. Performed By: #### C BCWOD, PT, PTT, DDIMR, EDCTNI, NTPROBNP, CHEM8, LIPASE, CMETADD #### Unless otherwise noted, all testing performed by [facility] [address] [place], [place] [address] CLIA: [id number] Lithograph Operator: Maurice Coello M.D. CT ABDO,PELVIS W/O CONTRASTo n 11-30-2018 CT ABDO,PELVIS W/O CONTRAST Final Report Accession No: [id number] Performed: Nov 30 2018 11:24AM Examination: [...] PERKINS D.O. Trans: mh : cc: Normal [facility] Culture, Stoolon 11-30-2018 Culture, Stool Test Name: Culture, Stool Culture Status: Final Culture Report: Lack of Normal Dawna Noted. No Salmonella, Shigella, Yersinia, or Campylobacter isolated. Micro Source: Stool Shiga Toxin 1: Insufficient growth to perform test. Shiga Toxin 2: Insufficient growth to perform test. Normal [facility] Comment on above: Performed By: #### C BCWOD, PT, PTT, DDIMR, EDCTNI, NTPROBNP, CHEM8, LIPASE, CMETADD #### Unless otherwise noted, all testing performed by [place] [address] CLIA: [id number] Lithograph Operator: Maurice Coello M.D. Gram Stainon 11-30-2018 Microscopic observation Gram stain Nom (Unsp spec) Test Name: Gram Stain Culture Status: Final Gram Stain: No WBC's Many mixed bowel dawna. Normal F [facility] Comment on above: Performed By: #### C BCWOD, PT, PTT, DDIMR, EDCTNI, NTPROBNP, CHEM8, LIPASE, CMETADD #### Unless otherwise noted, all testing performed by [place] [address] CLIA: [id number] Lithograph Operator: Maurice Coello M.D. Lactic Acidon 11-30-2018 Lactate molar conc 0.8 mmol/L Normal 0.6-2.0 [facility] [place] [facility] Comment on above: Performed By: #### C BCWOD, PT, PTT, DDIMR, EDCTNI, NTPROBNP, CHEM8, LIPASE, CMETADD #### Unless otherwise noted, all testing performed by [place] [address] [address] [place], [place] [address] CLIA: [id number] Lithograph Operator: Maurice Coello M.D. Progress Noteon 11-30-2018 Protein mass conc [facility] [address] [place] [id number] NAME RADHA SHAFER [facility] [id number] 1960 DATE PROGRESS NOTE ORTHOPEDIC PROGRESS NOTE [...] left knee. MD Krzysztof HENDERSON 11/30/2018 12:22 [id number] T 11/30/2018 13:43 MCB/MODL Electronically Signed By Maycol Alvarado M.D. on 01 Dec 2018 15:44:03 GMT Normal [facility] Specimen Acceptable (CDIF)on 11-30-2018 Specimen Acceptable (CDIF) YES Normal [facility] Comment on above: Result Comment: Trudi perdomo ifficile testing result(s) to follow. Performed By: #### C BCWOD, PT, PTT, DDIMR, EDCTNI, NTPROBNP, CHEM8, LIPASE, CMETADD #### Unless otherwise noted, all testing performed by [place] [address] CLIA: [id number] Lithograph Operator: Maurice Coello M.D. BUN and Creatinineon 019 Creatinine mass conc 1.26 mg/dL High 0.40-1.10 [facility] Comment on above: Performed By: #### C BCWOD, PT, PTT, DDIMR, EDCTNI, NTPROBNP, CHEM8, LIPASE, CMETADD #### Unless otherwise noted, all testing performed by [place] [address] CLIA: [id number] Lithograph Operator: Maurice Coello M.D. GFR/1.73 sq M predicted among blacks MDRD vol rate/area (S/P/Bld) 52 mL/min/{1.73_m2} Low >60 [facility] Comment on above: Result Comment: Afri can Cuban GFR Calc Performed By: #### C BCWOD, PT, PTT, DDIMR, EDCTNI, NTPROBNP, CHEM8, LIPASE, CMETADD #### Unless otherwise noted, all testing performed by [place] [address] CLIA: [id number] Lithograph Operator: Maurice Coello M.D. GFR/1.73 sq M predicted among non-blacks MDRD vol rate/area (S/P/Bld) 43 mL/min/{1.73_m2} Low >60 [facility] Comment on above: Result Comment: Non- [...] Unless otherwise noted, all testing performed by [place] [address] CLIA: [id number] Lithograph Operator: Maurice Coello M.D. Urea nitrogen mass conc 10 mg/dL Normal 8-25 [facility] Comment on above: Performed By: #### C BCWOD, PT, PTT, DDIMR, EDCTNI, NTPROBNP, CHEM8, LIPASE, CMETADD #### Unless otherwise noted, all testing performed by [place] [address] CLIA: [id number] Lithograph Operator: Maurice Coello M.D. CBC with Diffon 11-28-2018 Basophils #/vol (Bld) 0.1 K/mcL Normal 0-0.2 [facility] Comment on above: Performed By: #### C BCWOD, PT, PTT, DDIMR, EDCTNI, NTPROBNP, CHEM8, LIPASE, CMETADD #### Unless otherwise noted, all testing performed by [place] [address] CLIA: [id number] Lithograph Operator: Maurice Coello M.D. Basophils/100 WBC (Bld) 0.9 % Normal [facility] Comment on above: Performed By: #### C BCWOD, PT, PTT, DDIMR, EDCTNI, NTPROBNP, CHEM8, LIPASE, CMETADD #### Unless otherwise noted, all testing performed by [place] [address] CLIA: [id number] Lithograph Operator: Maurice Coello M.D. Eosinophils #/vol (Bld) 0.1 K/mcL Normal 0-0.5 O [facility] Comment on above: Performed By: #### C BCWOD, PT, PTT, DDIMR, EDCTNI, NTPROBNP, CHEM8, LIPASE, CMETADD #### Unless otherwise noted, all testing performed by [place] [address] CLIA: [id number] Lithograph Operator: Maurice Coello M.D. Eosinophils/100 WBC (Bld) 1.5 % Normal [facility] Comment on above: Performed By: #### C BCWOD, PT, PTT, DDIMR, EDCTNI, NTPROBNP, CHEM8, LIPASE, CMETADD #### Unless otherwise noted, all testing performed by [place] [address] CLIA: [id number] Lithograph Operator: Maurcie Coello M.D. Erythrocyte distribution width Ratio (RBC) 16.8 % High 10.0-14.4 [facility] Comment on above: Performed By: #### C BCWOD, PT, PTT, DDIMR, EDCTNI, NTPROBNP, CHEM8, LIPASE, CMETADD #### Unless otherwise noted, all testing performed by [place] [address] CLIA: [id number] Lithograph Operator: Maurice Mode, M.D. Hematocrit Volume Fraction (Bld) 32.8 % Low 34.4-44.8 [facility] Comment on above: Performed By: #### C BCWOD, PT, PTT, DDIMR, EDCTNI, NTPROBNP, CHEM8, LIPASE, CMETADD #### Unless otherwise noted, all testing performed by [place] [address] CLIA: [id number] Lithograph Operator: Maurice Coello M.D. Hemoglobin mass conc (Bld) 10.8 g/dL Low 11.6-15.4 [facility] Comment on above: Performed By: #### C BCWOD, PT, PTT, DDIMR, EDCTNI, NTPROBNP, CHEM8, LIPASE, CMETADD #### Unless otherwise noted, all testing performed by [place] [address] CLIA: [id number] Lithograph Operator: Maurice Coello M.D. Lymphocytes #/vol (Bld) 1.8 K/mcL Normal 1.0-3.7 [facility] Comment on above: Performed By: #### C BCWOD, PT, PTT, DDIMR, EDCTNI, NTPROBNP, CHEM8, LIPASE, CMETADD #### Unless otherwise noted, all testing performed by [place] [address] CLIA: [id number] Lithograph Operator: Maurice Coello M.D. Lymphocytes/100 WBC (Bld) 20.7 % Normal [facility] Comment on above: Performed By: #### C BCWOD, PT, PTT, DDIMR, EDCTNI, NTPROBNP, CHEM8, LIPASE, CMETADD #### Unless otherwise noted, all testing performed by [place] [address] CLIA: [id number] Lithograph Operator: Maurice Coello M.D. MCH Entitic mass (RBC) 25.3 pg Low 27.9-33.9 [facility] Comment on above: Performed By: #### C BCWOD, PT, PTT, DDIMR, EDCTNI, NTPROBNP, CHEM8, LIPASE, CMETADD #### Unless otherwise noted, all testing performed by [place] [address] CLIA: [id number] Lithograph Operator: Maurice Coello M.D. MCHC mass conc (RBC) 33.0 g/dL Low 33.1-35.1 [facility] Comment on above: Performed By: #### C BCWOD, PT, PTT, DDIMR, EDCTNI, NTPROBNP, CHEM8, LIPASE, CMETADD #### Unless otherwise noted, all testing performed by [place] [address] CLIA: [id number] Lithograph Operator: Maurice Coello M.D. MCV Entitic volume (RBC) 76.7 fL Low 82.6-98.9 [facility] Comment on above: Performed By: #### C BCWOD, PT, PTT, DDIMR, EDCTNI, NTPROBNP, CHEM8, LIPASE, CMETADD #### Unless otherwise noted, all testing performed by [place] [address] CLIA: [id number] Lithograph Operator: Maurice Coello M.D. Monocytes #/vol (Bld) 0.7 K/mcL High 0.1-0.6 [facility] Comment on above: Performed By: #### C BCWOD, PT, PTT, DDIMR, EDCTNI, NTPROBNP, CHEM8, LIPASE, CMETADD #### Unless otherwise noted, all testing performed by [place] [address] CLIA: [id number] Lithograph Operator: Maurice Coello M.D. Monocytes/100 WBC (Bld) 8.1 % Normal [facility] Comment on above: Performed By: #### C BCWOD, PT, PTT, DDIMR, EDCTNI, NTPROBNP, CHEM8, LIPASE, CMETADD #### Unless otherwise noted, all testing performed by [place] [address] CLIA: [id number] Lithograph Operator: Maurice Coello M.D. Neutrophils #/vol (Bld) 5.8 K/mcL Normal 1.2-6.9 [facility] Comment on above: Performed By: #### C BCWOD, PT, PTT, DDIMR, EDCTNI, NTPROBNP, CHEM8, LIPASE, CMETADD #### Unless otherwise noted, all testing performed by [place] [address] CLIA: [id number] Lithograph Operator: Maurice Coello M.D. Platelet mean volume Entitic volume (Bld) 8.7 fL Normal 7.0-10.6 [facility] Comment on above: Performed By: #### C BCWOD, PT, PTT, DDIMR, EDCTNI, NTPROBNP, CHEM8, LIPASE, CMETADD #### Unless otherwise noted, all testing performed by [place] [address] CLIA: [id number] Lithograph Operator: Maurice Coello M.D. Platelets #/vol (Bld) 274 K/mcL Normal 162-402 [facility] Comment on above: Performed By: #### C BCWOD, PT, PTT, DDIMR, EDCTNI, NTPROBNP, CHEM8, LIPASE, CMETADD #### Unless otherwise noted, all testing performed by [place] [address] CLIA: [id number] Lithograph Operator: Maurice Coello M.D. RBC #/vol (Bld) 4.28 M/mcL Normal 3.7-5.0 [facility] Comment on above: Performed By: #### C BCWOD, PT, PTT, DDIMR, EDCTNI, NTPROBNP, CHEM8, LIPASE, CMETADD #### Unless otherwise noted, all testing performed by [place] [address] CLIA: [id number] Lithograph Operator: Maurice Coello M.D. Segmented Neut % 68.8 % Normal [facility] Comment on above: Performed By: #### C BCWOD, PT, PTT, DDIMR, EDCTNI, NTPROBNP, CHEM8, LIPASE, CMETADD #### Unless otherwise noted, all testing performed by [place] [address] CLIA: [id number] Lithograph Operator: Maurice Coello M.D. WBC #/vol (Bld) 8.5 K/mcL Normal 3.4-10.6 [facility] Comment on above: Performed By: #### C BCWOD, PT, PTT, DDIMR, EDCTNI, NTPROBNP, CHEM8, LIPASE, CMETADD #### Unless otherwise noted, all testing performed by [place] [address] CLIA: [id number] Lithograph Operator: Maurice Coello M.D. CHEMG (Basic Metabolic and M g)on 11-28-2018 Calcium mass conc 8.1 mg/dL Low 8.4-10.2 [facility] Comment on above: Performed By: #### C BCWOD, PT, PTT, DDIMR, EDCTNI, NTPROBNP, CHEM8, LIPASE, CMETADD #### Unless otherwise noted, all testing performed by [place] [address] CLIA: [id number] Lithograph Operator: Maurice Coello M.D. Chloride molar conc 106 mmol/L Normal 98-108 [facility] Comment on above: Performed By: #### C BCWOD, PT, PTT, DDIMR, EDCTNI, NTPROBNP, CHEM8, LIPASE, CMETADD #### Unless otherwise noted, all testing performed by [place] [address] CLIA: [id number] Lithograph Operator: Maurice Coello M.D. CO2 molar conc 28 mmol/L Normal 21-32 [facility] Comment on above: Performed By: #### C BCWOD, PT, PTT, DDIMR, EDCTNI, NTPROBNP, CHEM8, LIPASE, CMETADD #### Unless otherwise noted, all testing performed by [place] [address] CLIA: [id number] Lithograph Operator: Maurice Coello M.D. Creatinine mass conc 1.51 mg/dL High 0.40-1.10 [facility] Comment on above: Performed By: #### C BCWOD, PT, PTT, DDIMR, EDCTNI, NTPROBNP, CHEM8, LIPASE, CMETADD #### Unless otherwise noted, all testing performed by [place] [address] CLIA: [id number] Lithograph Operator: Maurice Coello M.D. GFR/1.73 sq M predicted among blacks MDRD vol rate/area (S/P/Bld) 42 mL/min/{1.73_m2} Low >60 [facility] Comment on above: Result Comment: Afri can Cuban GFR Calc Performed By: #### C BCWOD, PT, PTT, DDIMR, EDCTNI, NTPROBNP, CHEM8, LIPASE, CMETADD #### Unless otherwise noted, all testing performed by [place] [address] CLIA: [id number] Lithograph Operator: Maurice Coello M.D. GFR/1.73 sq M predicted among non-blacks MDRD vol rate/area (S/P/Bld) 35 mL/min/{1.73_m2} Low >60 [facility] Comment on above: Result Comment: Non- [...] Unless otherwise noted, all testing performed by [place] [address] CLIA: [id number] Lithograph Operator: Maurice Coello M.D. Glucose mass conc 91 mg/dL Normal 70-99 [facility] Comment on above: Result Comment: This test result might be falsely depressed or falsely elevated on samples drawn from patients taking Sulfasalazine and Sulfapyridine. Venipuncture should occur prior to taking either of these drugs. Performed By: #### C BCWOD, PT, PTT, DDIMR, EDCTNI, NTPROBNP, CHEM8, LIPASE, CMETADD #### Unless otherwise noted, all testing performed by [place] [address] CLIA: [id number] Lithograph Operator: Maurice Coello M.D. Magnesium mass conc 2.0 mg/dL Normal 1.6-2.4 [facility] Comment on above: Performed By: #### C BCWOD, PT, PTT, DDIMR, EDCTNI, NTPROBNP, CHEM8, LIPASE, CMETADD #### Unless otherwise noted, all testing performed by [place] [phone] CLIA: [id number] Lithograph Operator: Maurice Coello M.D. Potassium molar conc 4.4 mmol/L Normal 3.5-5.1 [facility] Comment on above: Performed By: #### C BCWOD, PT, PTT, DDIMR, EDCTNI, NTPROBNP, CHEM8, LIPASE, CMETADD #### Unless otherwise noted, all testing performed by [place] [address] CLIA: [id number] Lithograph Operator: Maurice Coello M.D. Sodium molar conc 137 mmol/L Normal 135-145 [facility] Comment on above: Performed By: #### C BCWOD, PT, PTT, DDIMR, EDCTNI, NTPROBNP, CHEM8, LIPASE, CMETADD #### Unless otherwise noted, all testing performed by [place] [address] CLIA: [id number] Lithograph Operator: Maurice Coello M.D. Urea nitrogen mass conc 14 mg/dL Normal 8-25 [facility] Comment on above: Performed By: #### C BCWOD, PT, PTT, DDIMR, EDCTNI, NTPROBNP, CHEM8, LIPASE, CMETADD #### Unless otherwise noted, all testing performed by [place] [address] CLIA: [id number] Lithograph Operator: Maurice Coello M.D. Cell Count, Body Fluidon Avni Swift.F. Cloudy Abnormal Clear [facility] Comment on above: Performed By: #### C BCWOD, PT, PTT, DDIMR, EDCTNI, NTPROBNP, CHEM8, LIPASE, CMETADD #### Unless otherwise noted, all testing performed by [place] [address] CLIA: [id number] Lithograph Operator: Maurice Coello M.D. Color, Body Fl. Yellow Normal [facility] Comment on above: Performed By: #### C BCWOD, PT, PTT, DDIMR, EDCTNI, NTPROBNP, CHEM8, LIPASE, CMETADD #### Unless otherwise noted, all testing performed by [place] [address] CLIA: [id number] Lithograph Operator: Maurice Coello M.D. Lymphocytes/100 WBC (Bld) 7.0 % Normal [facility] Comment on above: Result Comment: Syno vial fld. Lymph% ref. range is <75%. Performed By: #### C BCWOD, PT, PTT, DDIMR, EDCTNI, NTPROBNP, CHEM8, LIPASE, CMETADD #### Unless otherwise noted, all testing performed by [place] [address] CLIA: [id number] Lithograph Operator: Maurice Mode, M.D. Rhea/Macrophage 26.0 % Normal [facility] Comment on above: Result Comment: Syno vial fld. monocyte/macrophage% ref. range is <70%. Performed By: #### C BCWOD, PT, PTT, DDIMR, EDCTNI, NTPROBNP, CHEM8, LIPASE, CMETADD #### Unless otherwise noted, all testing performed by [place] [phone] CLIA: [id number] Lithograph Operator: Maurice Coello M.D. RBC #/vol (Bld) 4014 /mcL Normal [facility] Comment on above: Result Comment: Syno vial fld. RBC ref. range is 0/mcL. Performed By: #### C BCWOD, PT, PTT, DDIMR, EDCTNI, NTPROBNP, CHEM8, LIPASE, CMETADD #### Unless otherwise noted, all testing performed by [place] [phone] CLIA: [id number] Lithograph Operator: Maurice Coello M.D. Seg, Body Fl. 67.0 % Normal [facility] Comment on above: Result Comment: Syno vial fld. Seg% ref. range is <25%. Performed By: #### C BCWOD, PT, PTT, DDIMR, EDCTNI, NTPROBNP, CHEM8, LIPASE, CMETADD #### Unless otherwise noted, all testing performed by [place] [address] CLIA: [id number] Lithograph Operator: Maurice Coello M.D. Spec. Type, B.F. Synovial Fluid Normal [facility] Comment on above: Performed By: #### C BCWOD, PT, PTT, DDIMR, EDCTNI, NTPROBNP, CHEM8, LIPASE, CMETADD #### Unless otherwise noted, all testing performed by [place] [address] CLIA: [id number] Lithograph Operator: Maurice Coello M.D. WBC #/vol (Bld) 62912 /mcL Normal [facility] Comment on above: Result Comment: Syno vial fld. WBC ref. range is 0-200/mcL. Performed By: #### C BCWOD, PT, PTT, DDIMR, EDCTNI, NTPROBNP, CHEM8, LIPASE, CMETADD #### Unless otherwise noted, all testing performed by [place] [address] CLIA: [id number] Lithograph Operator: Maurice Coello M.D. Crystals, Syn Fldon 11-28-19 19 Crystal, Intra None Seen Normal None Seen [facility] Comment on above: Performed By: #### C BCWOD, PT, PTT, DDIMR, EDCTNI, NTPROBNP, CHEM8, LIPASE, CMETADD #### Unless otherwise noted, all testing performed by [place] [address] CLIA: [id number] Lithograph Operator: Maurice Coello M.D. Crystals, Extra None Seen Normal None Seen [facility] Comment on above: Performed By: #### C BCWOD, PT, PTT, DDIMR, EDCTNI, NTPROBNP, CHEM8, LIPASE, CMETADD #### Unless otherwise noted, all testing performed by [place] [address] CLIA: [id number] Lithograph Operator: Maurice Coello M.D. Culture, Acid-Faston 019 Culture, Acid-Fast Test Name: Culture, Acid-Fast Site: Left knee (tka) Culture Status: Final Culture Report: No Acid-Fast Bacillus isolated after 8 weeks. Acid-Fast Smear: No Acid-Fast Bacillus seen on smear. Micro Source: Synovial Fluid Normal [facility] Comment on above: Performed By: #### C BCWOD, PT, PTT, DDIMR, EDCTNI, NTPROBNP, CHEM8, LIPASE, CMETADD #### Unless otherwise noted, all testing performed by [place] [address] CLIA: [id number] Lithograph Operator: Maurice Coello M.D. Culture, Anaerobicon 019 Culture, Anaerobic Test Name: Culture, Anaerobic Site: left knee (TKA) Culture Status: Final Culture Report: No anaerobes isolated. Micro Source: Synovial Fluid Normal [facility] Comment on above: Performed By: #### C BCWOD, PT, PTT, DDIMR, EDCTNI, NTPROBNP, CHEM8, LIPASE, CMETADD #### Unless otherwise noted, all testing performed by [place] [address] CLIA: [id number] Lithograph Operator: Maurice Coello M.D. Culture, Fungus,Otheron 11-07 Culture, Fungus,Other Test Name: Culture , Fungus,Other Site: left knee (tka) Culture Status: Final Culture Report: No Fungi isolated after 6 weeks. CATERINA Prep: No Fungal Elements Seen Micro Source: Synovial Fluid Normal [facility] Comment on above: Performed By: #### C BCWOD, PT, PTT, DDIMR, EDCTNI, NTPROBNP, CHEM8, LIPASE, CMETADD #### Unless otherwise noted, all testing performed by [place] [address] CLIA: [id number] Lithograph Operator: Maurice Coello M.D. Culture,Bacterialon 11-28-19 19 Culture,Bacterial Test Name: Culture,Bacterial Site: left knee (TKA) Culture Status: Final Culture Report: No Growth - Day 5 Gram Stain: Moderate WBC's No Organisms Seen Micro Source: Synovial Fluid Normal [facility] Comment on above: Performed By: #### C BCWOD, PT, PTT, DDIMR, EDCTNI, NTPROBNP, CHEM8, LIPASE, CMETADD #### Unless otherwise noted, all testing performed by [place] [address] CLIA: [id number] Lithograph Operator: Maurice Coello M.D. CBC with Diffon 11-27-2018 Basophils #/vol (Bld) 0.1 K/mcL Normal 0-0.2 [facility] Comment on above: Performed By: #### C BCWOD, PT, PTT, DDIMR, EDCTNI, NTPROBNP, CHEM8, LIPASE, CMETADD #### Unless otherwise noted, all testing performed by [place] [address] CLIA: [id number] Lithograph Operator: Maurice Coello M.D. Basophils/100 WBC (Bld) 0.8 % Normal [facility] Comment on above: Performed By: #### C BCWOD, PT, PTT, DDIMR, EDCTNI, NTPROBNP, CHEM8, LIPASE, CMETADD #### Unless otherwise noted, all testing performed by [place] [address] CLIA: [id number] Lithograph Operator: Maurice Coello M.D. Eosinophils #/vol (Bld) 0.1 K/mcL Normal 0-0.5 [facility] Comment on above: Performed By: #### C BCWOD, PT, PTT, DDIMR, EDCTNI, NTPROBNP, CHEM8, LIPASE, CMETADD #### Unless otherwise noted, all testing performed by [facility] [place] [address] CLIA: [id number] Lithograph Operator: Maurice Coello M.D. Eosinophils/100 WBC (Bld) 1.3 % Normal [facility] Comment on above: Performed By: #### C BCWOD, PT, PTT, DDIMR, EDCTNI, NTPROBNP, CHEM8, LIPASE, CMETADD #### Unless otherwise noted, all testing performed by [place] [address] CLIA: [id number] Lithograph Operator: Maurice Coello M.D. Erythrocyte distribution width Ratio (RBC) 16.8 % High 10.0-14.4 [facility] Comment on above: Performed By: #### C BCWOD, PT, PTT, DDIMR, EDCTNI, NTPROBNP, CHEM8, LIPASE, CMETADD #### Unless otherwise noted, all testing performed by [place] [address] CLIA: [id number] Lithograph Operator: Maurice Coello M.D. Hematocrit Volume Fraction (Bld) 37.1 % Normal 34.4-44.8 [facility] Comment on above: Performed By: #### C BCWOD, PT, PTT, DDIMR, EDCTNI, NTPROBNP, CHEM8, LIPASE, CMETADD #### Unless otherwise noted, all testing performed by [place] [address] CLIA: [id number] Lithograph Operator: Maurice Coello M.D. Hemoglobin mass conc (Bld) 11.7 g/dL Normal 11.6-15.4 [facility] Comment on above: Performed By: #### C BCWOD, PT, PTT, DDIMR, EDCTNI, NTPROBNP, CHEM8, LIPASE, CMETADD #### Unless otherwise noted, all testing performed by [place] [address] CLIA: [id number] Lithograph Operator: Maurice Coello M.D. Lymphocytes #/vol (Bld) 1.6 K/mcL Normal 1.0-3.7 [facility] Comment on above: Performed By: #### C BCWOD, PT, PTT, DDIMR, EDCTNI, NTPROBNP, CHEM8, LIPASE, CMETADD #### Unless otherwise noted, all testing performed by [place] [address] CLIA: [id number] Lithograph Operator: Maurice Coello M.D. Lymphocytes/100 WBC (Bld) 19.2 % Normal [facility] Comment on above: Performed By: #### C BCWOD, PT, PTT, DDIMR, EDCTNI, NTPROBNP, CHEM8, LIPASE, CMETADD #### Unless otherwise noted, all testing performed by [place] [address] CLIA: [id number] Lithograph Operator: Maurice Coello M.D. MCH Entitic mass (RBC) 24.2 pg Low 27.9-33.9 [facility] Comment on above: Performed By: #### C BCWOD, PT, PTT, DDIMR, EDCTNI, NTPROBNP, CHEM8, LIPASE, CMETADD #### Unless otherwise noted, all testing performed by [place] [address] CLIA: [id number] Lithograph Operator: Maurice Coello M.D. MCHC mass conc (RBC) 31.5 g/dL Low 33.1-35.1 [facility] Comment on above: Performed By: #### C BCWOD, PT, PTT, DDIMR, EDCTNI, NTPROBNP, CHEM8, LIPASE, CMETADD #### Unless otherwise noted, all testing performed by [place] [address] CLIA: [id number] Lithograph Operator: Maurice Coello M.D. MCV Entitic volume (RBC) 77.0 fL Low 82.6-98.9 [facility] Comment on above: Performed By: #### C BCWOD, PT, PTT, DDIMR, EDCTNI, NTPROBNP, CHEM8, LIPASE, CMETADD #### Unless otherwise noted, all testing performed by [place] [phone] CLIA: [id number] Lithograph Operator: Maurice Coello M.D. Monocytes #/vol (Bld) 0.5 K/mcL Normal 0.1-0.6 [facility] Comment on above: Performed By: #### C BCWOD, PT, PTT, DDIMR, EDCTNI, NTPROBNP, CHEM8, LIPASE, CMETADD #### Unless otherwise noted, all testing performed by [place] [address] CLIA: [id number] Lithograph Operator: Maurice Coello M.D. Monocytes/100 WBC (Bld) 6.5 % Normal [facility] Comment on above: Performed By: #### C BCWOD, PT, PTT, DDIMR, EDCTNI, NTPROBNP, CHEM8, LIPASE, CMETADD #### Unless otherwise noted, all testing performed by [place] [address] CLIA: [id number] Lithograph Operator: Maurice Coello M.D. Neutrophils #/vol (Bld) 5.9 K/mcL Normal 1.2-6.9 [facility] Comment on above: Performed By: #### C BCWOD, PT, PTT, DDIMR, EDCTNI, NTPROBNP, CHEM8, LIPASE, CMETADD #### Unless otherwise noted, all testing performed by [place] [address] CLIA: [id number] Lithograph Operator: Maurice Coello M.D. Platelet mean volume Entitic volume (Bld) 8.5 fL Normal 7.0-10.6 [facility] Comment on above: Performed By: #### C BCWOD, PT, PTT, DDIMR, EDCTNI, NTPROBNP, CHEM8, LIPASE, CMETADD #### Unless otherwise noted, all testing performed by [place] [address] CLIA: [id number] Lithograph Operator: Maurice Coello M.D. Platelets #/vol (Bld) 279 K/mcL Normal 162-402 [facility] Comment on above: Performed By: #### C BCWOD, PT, PTT, DDIMR, EDCTNI, NTPROBNP, CHEM8, LIPASE, CMETADD #### Unless otherwise noted, all testing performed by [place] [address] CLIA: [id number] Lithograph Operator: Maurice Coello M.D. RBC #/vol (Bld) 4.83 M/mcL Normal 3.7-5.0 [facility] Comment on above: Performed By: #### C BCWOD, PT, PTT, DDIMR, EDCTNI, NTPROBNP, CHEM8, LIPASE, CMETADD #### Unless otherwise noted, all testing performed by [address] [place], [place] [address] CLIA: [id number] Lithograph Operator: Maurice Coello M.D. Segmented Neut % 72.2 % Normal [facility] Comment on above: Performed By: #### C BCWOD, PT, PTT, DDIMR, EDCTNI, NTPROBNP, CHEM8, LIPASE, CMETADD #### Unless otherwise noted, all testing performed by [place] [address] CLIA: [id number] Lithograph Operator: Maurice Coello M.D. WBC #/vol (Bld) 8.2 K/mcL Normal 3.4-10.6 [facility] Comment on above: Performed By: #### C BCWOD, PT, PTT, DDIMR, EDCTNI, NTPROBNP, CHEM8, LIPASE, CMETADD #### Unless otherwise noted, all testing performed by [place] [address] CLIA: [id number] Lithograph Operator: Maurice Coello M.D. CRP, C-Reactive Proteinon Protein mass conc 145.0 mg/L High 0.0-10.0 [facility] Comment on above: Performed By: #### C BCWOD, PT, PTT, DDIMR, EDCTNI, NTPROBNP, CHEM8, LIPASE, CMETADD #### Unless otherwise noted, all testing performed by [place] [address] CLIA: [id number] Lithograph Operator: Maurice Coello M.D. Comprehensive Metabolic Pane jett 11-27-2018 Albumin mass conc 3.6 g/dL Normal 3.2-5.2 [facility] Comment on above: Performed By: #### C BCWOD, PT, PTT, DDIMR, EDCTNI, NTPROBNP, CHEM8, LIPASE, CMETADD #### Unless otherwise noted, all testing performed by [place] [address] CLIA: [id number] Lithograph Operator: Maurice Coello M.D. ALP enzyme act/vol 102 U/L Normal 40-150 [facility] Comment on above: Performed By: #### C BCWOD, PT, PTT, DDIMR, EDCTNI, NTPROBNP, CHEM8, LIPASE, CMETADD #### Unless otherwise noted, all testing performed by [place] [phone] CLIA: [id number] Lithograph Operator: Maurice Coello M.D. ALT enzyme act/vol 21 U/L Normal 14-65 [facility] Comment on above: Result Comment: This test result might be falsely depressed or falsely elevated on samples drawn from patients taking Sulfasalazine and Sulfapyridine. Venipuncture should occur prior to taking either of these drugs. Performed By: #### C BCWOD, PT, PTT, DDIMR, EDCTNI, NTPROBNP, CHEM8, LIPASE, CMETADD #### Unless otherwise noted, all testing performed by [place] [address] CLIA: [id number] Lithograph Operator: Maurice Coello M.D. AST enzyme act/vol 18 U/L Normal 0-45 [facility] Comment on above: Result Comment: This test result might be falsely depressed or falsely elevated on samples drawn from patients taking Sulfasalazine and Sulfapyridine. Venipuncture should occur prior to taking either of these drugs. Performed By: #### C BCWOD, PT, PTT, DDIMR, EDCTNI, NTPROBNP, CHEM8, LIPASE, CMETADD #### Unless otherwise noted, all testing performed by [place] [address] CLIA: [id number] Lithograph Operator: Maurice Coello M.D. Bilirubin mass conc 0.3 mg/dL Normal 0.3-1.2 [facility] Comment on above: Performed By: #### C BCWOD, PT, PTT, DDIMR, EDCTNI, NTPROBNP, CHEM8, LIPASE, CMETADD #### Unless otherwise noted, all testing performed by [place] [address] CLIA: [id number] Lithograph Operator: Maurice Coello M.D. Calcium mass conc 8.7 mg/dL Normal 8.4-10.2 [facility] Comment on above: Performed By: #### C BCWOD, PT, PTT, DDIMR, EDCTNI, NTPROBNP, CHEM8, LIPASE, CMETADD #### Unless otherwise noted, all testing performed by [place] [address] CLIA: [id number] Lithograph Operator: Maurice Coello M.D. Chloride molar conc 105 mmol/L Normal 98-108 [facility] Comment on above: Performed By: #### C BCWOD, PT, PTT, DDIMR, EDCTNI, NTPROBNP, CHEM8, LIPASE, CMETADD #### Unless otherwise noted, all testing performed by [place] [address] CLIA: [id number] Lithograph Operator: Maurice Coello M.D. CO2 molar conc 27 mmol/L Normal 21-32 [facility] Comment on above: Performed By: #### C BCWOD, PT, PTT, DDIMR, EDCTNI, NTPROBNP, CHEM8, LIPASE, CMETADD #### Unless otherwise noted, all testing performed by [place] [address] CLIA: [id number] Lithograph Operator: Maurice Coello M.D. Creatinine mass conc 1.53 mg/dL High 0.40-1.10 [facility] Comment on above: Performed By: #### C BCWOD, PT, PTT, DDIMR, EDCTNI, NTPROBNP, CHEM8, LIPASE, CMETADD #### Unless otherwise noted, all testing performed by [place] [address] CLIA: [id number] Lithograph Operator: Maurice Coello M.D. GFR/1.73 sq M predicted among blacks MDRD vol rate/area (S/P/Bld) 42 mL/min/{1.73_m2} Low >60 [facility] Comment on above: Result Comment: Afri can Cuban GFR Calc Performed By: #### C BCWOD, PT, PTT, DDIMR, EDCTNI, NTPROBNP, CHEM8, LIPASE, CMETADD #### Unless otherwise noted, all testing performed by [place] [address] CLIA: [id number] Lithograph Operator: Maurice Coello M.D. GFR/1.73 sq M predicted among non-blacks MDRD vol rate/area (S/P/Bld) 35 mL/min/{1.73_m2} Low >60 [facility] Comment on above: Result Comment: Non- [...] Unless otherwise noted, all testing performed by [place] [address] CLIA: [id number] Lithograph Operator: Maurice Coello M.D. Glucose mass conc 96 mg/dL Normal 70-99 [facility] Comment on above: Result Comment: This test result might be falsely depressed or falsely elevated on samples drawn from patients taking Sulfasalazine and Sulfapyridine. Venipuncture should occur prior to taking either of these drugs. Performed By: #### C BCWOD, PT, PTT, DDIMR, EDCTNI, NTPROBNP, CHEM8, LIPASE, CMETADD #### Unless otherwise noted, all testing performed by [place] [phone] CLIA: [id number] Lithograph Operator: Maurice Coello M.D. Potassium molar conc 3.9 mmol/L Normal 3.5-5.1 [facility] Comment on above: Performed By: #### C BCWOD, PT, PTT, DDIMR, EDCTNI, NTPROBNP, CHEM8, LIPASE, CMETADD #### Unless otherwise noted, all testing performed by [place] [address] CLIA: [id number] Lithograph Operator: Maurice Coello M.D. Protein mass conc 7.9 g/dL Normal 6.0-8.0 [facility] Comment on above: Performed By: #### C BCWOD, PT, PTT, DDIMR, EDCTNI, NTPROBNP, CHEM8, LIPASE, CMETADD #### Unless otherwise noted, all testing performed by [place] [address] CLIA: [id number] Lithograph Operator: Maurice Coello M.D. Sodium molar conc 139 mmol/L Normal 135-145 [facility] Comment on above: Performed By: #### C BCWOD, PT, PTT, DDIMR, EDCTNI, NTPROBNP, CHEM8, LIPASE, CMETADD #### Unless otherwise noted, all testing performed by [place] [address] CLIA: [id number] Lithograph Operator: Maurice Coello M.D. Urea nitrogen mass conc 13 mg/dL Normal 8-25 O [facility] Comment on above: Performed By: #### C BCWOD, PT, PTT, DDIMR, EDCTNI, NTPROBNP, CHEM8, LIPASE, CMETADD #### Unless otherwise noted, all testing performed by [place] [address] CLIA: [id number] Lithograph Operator: Maurice Coello M.D. D-Dimeron 11-27-2018 D-Dimer 1.18 mcg/ml (FEU) High < .5 [facility] Comment on above: Result Comment: This test is intended for use in conjunction with a clinical pretest probability (PTP) assessment model to exclude pulmonary embolism (PE) and deep vein thrombosis (DVT) in outpatients suspected of PE or DVT. Performed By: #### C BCWOD, PT, PTT, DDIMR, EDCTNI, NTPROBNP, CHEM8, LIPASE, CMETADD #### Unless otherwise noted, all testing performed by [place] [address] CLIA: [id number] Lithograph Operator: Maurice Coello M.D. KNEE W/ONE OBLIQUEon 019 KNEE W/ONE OBLIQUE Final Report Accession No: [id number] Performed: Nov 27 2018 7:33PM Examination: [...] complications. Interpreting Physician: MATIAS ADLER M.D. Trans: [id number] : cc: Normal [facility] Lactic Acidon 11-27-2018 Lactate molar conc 0.9 mmol/L Normal 0.6-2.0 [facility] [place] [facility] Comment on above: Performed By: #### C BCWOD, PT, PTT, DDIMR, EDCTNI, NTPROBNP, CHEM8, LIPASE, CMETADD #### Unless otherwise noted, all testing performed by [place] [address] CLIA: [id number] Lithograph Operator: Maurice Coello M.D. Sed Rateon 11-27-2018 Sed Rate 53 MM/hr. High 0-20 [facility] Comment on above: Performed By: #### C BCWOD, PT, PTT, DDIMR, EDCTNI, NTPROBNP, CHEM8, LIPASE, CMETADD #### Unless otherwise noted, all testing performed by [place] [address] CLIA: [id number] Lithograph Operator: Maurice Coello M.D. US EXTREMITY NON-VASCULAR LM ITEDon 10-10-2018 US EXTREMITY NON-VASCULAR LMITED Final Report Accession No: [id number] Performed: Oct 10 2018 12:32PM Examination: [...] DAY D.O. Trans: dcarr : cc: Normal [facility] Blood Gas, Arterialon 2017 Aa Ratio 77.0 % Normal [facility] Comment on above: Performed By: #### C BCWOD, PT, PTT, DDIMR, EDCTNI, NTPROBNP, CHEM8, LIPASE, CMETADD #### Unless otherwise noted, all testing performed by [place] [address] CLIA: [id number] Lithograph Operator: Maurice Coello M.D. [id number] 21.5 mm Hg Normal [facility] Comment on above: Performed By: #### C BCWOD, PT, PTT, DDIMR, EDCTNI, NTPROBNP, CHEM8, LIPASE, CMETADD #### Unless otherwise noted, all testing performed by [place] [address] CLIA: [id number] Lithograph Operator: Maurice Coello M.D. Allen Test N/A Normal [facility] Comment on above: Performed By: #### C BCWOD, PT, PTT, DDIMR, EDCTNI, NTPROBNP, CHEM8, LIPASE, CMETADD #### Unless otherwise noted, all testing performed by [place] [address] CLIA: [id number] Lithograph Operator: Maurice Mode, M.D. Base Excess 1.2 mmol/L Normal -2-2 [facility] Comment on above: Performed By: #### C BCWOD, PT, PTT, DDIMR, EDCTNI, NTPROBNP, CHEM8, LIPASE, CMETADD #### Unless otherwise noted, all testing performed by [place] [address] CLIA: [id number] Lithograph Operator: Maurice Coello M.D. Blood Gas Instrument ;ICU Normal [facility] Comment on above: Performed By: #### C BCWOD, PT, PTT, DDIMR, EDCTNI, NTPROBNP, CHEM8, LIPASE, CMETADD #### Unless otherwise noted, all testing performed by [place] [address] CLIA: [id number] Lithograph Operator: Maurice Coello M.D. Carboxyhemoglobin 1.2 % Normal [facility] Comment on above: Result Comment: Subu rban Non-Smoker <1.5% of total Hgb Smoker 1.5 - 5.0 % of total Hgb Heavy Smoker 5.0 - 9.0 % of total Hgb Performed By: #### C BCWOD, PT, PTT, DDIMR, EDCTNI, NTPROBNP, CHEM8, LIPASE, CMETADD #### Unless otherwise noted, all testing performed by [place] [address] CLIA: [id number] Lithograph Operator: Maurice Coello M.D. DeOxyhemoglobin (HHB) 5.5 % High 0.0-5.0 [facility] Comment on above: Performed By: #### C BCWOD, PT, PTT, DDIMR, EDCTNI, NTPROBNP, CHEM8, LIPASE, CMETADD #### Unless otherwise noted, all testing performed by [facility] [place] [address] CLIA: [id number] Lithograph Operator: Maurice Coello M.D. Drawn By (Bld Gas) pdb Normal [facility] [place] [facility] Comment on above: Performed By: #### C BCWOD, PT, PTT, DDIMR, EDCTNI, NTPROBNP, CHEM8, LIPASE, CMETADD #### Unless otherwise noted, all testing performed by [place] [address] CLIA: [id number] Lithograph Operator: Maurice Coello M.D. FIO2 21.0 % Normal 21-100 [facility] Comment on above: Performed By: #### C BCWOD, PT, PTT, DDIMR, EDCTNI, NTPROBNP, CHEM8, LIPASE, CMETADD #### Unless otherwise noted, all testing performed by [place] [address] CLIA: [id number] Lithograph Operator: Maurice Coello M.D. HCO3 molar conc (Bld) 26.6 mmol/L High 22-26 [facility] Comment on above: Performed By: #### C BCWOD, PT, PTT, DDIMR, EDCTNI, NTPROBNP, CHEM8, LIPASE, CMETADD #### Unless otherwise noted, all testing performed by [place] [address] CLIA: [id number] Lithograph Operator: Maurice Coello M.D. Hematocrit Volume Fraction (Bld) 37.9 % Normal 36-46 [facility] Comment on above: Performed By: #### C BCWOD, PT, PTT, DDIMR, EDCTNI, NTPROBNP, CHEM8, LIPASE, CMETADD #### Unless otherwise noted, all testing performed by [place] [address] CLIA: [id number] Lithograph Operator: Maurice Coello M.D. Hemoglobin mass conc (Bld) 94.4 % Normal 92-99 [facility] Comment on above: Performed By: #### C BCWOD, PT, PTT, DDIMR, EDCTNI, NTPROBNP, CHEM8, LIPASE, CMETADD #### Unless otherwise noted, all testing performed by [place] [address] CLIA: [id number] Lithograph Operator: Maurice Coello M.D. Hemoglobin mass conc (Bld) 12.4 g/dL Normal 12.0-16.0 [facility] Comment on above: Performed By: #### C BCWOD, PT, PTT, DDIMR, EDCTNI, NTPROBNP, CHEM8, LIPASE, CMETADD #### Unless otherwise noted, all testing performed by [place] [address] CLIA: [id number] Lithograph Operator: Maurice Coello M.D. Hemoglobin mass conc (Bld) 92.2 % Normal 92-99 [facility] Comment on above: Performed By: #### C BCWOD, PT, PTT, DDIMR, EDCTNI, NTPROBNP, CHEM8, LIPASE, CMETADD #### Unless otherwise noted, all testing performed by [place] [address] CLIA: [id number] Lithograph Operator: Maurice Coello M.D. Methemoglobin 1.1 % Normal < 2.0 [facility] Comment on above: Performed By: #### C BCWOD, PT, PTT, DDIMR, EDCTNI, NTPROBNP, CHEM8, LIPASE, CMETADD #### Unless otherwise noted, all testing performed by [place] [address] CLIA: [id number] Lithograph Operator: Maurice Coello M.D. O2 Device Room Air Normal [facility] Comment on above: Performed By: #### C BCWOD, PT, PTT, DDIMR, EDCTNI, NTPROBNP, CHEM8, LIPASE, CMETADD #### Unless otherwise noted, all testing performed by [place] [address] CLIA: [id number] Lithograph Operator: Maurice Coello M.D. O2CT 7.2 mmol/L Normal [facility] Comment on above: Performed By: #### C BCWOD, PT, PTT, DDIMR, EDCTNI, NTPROBNP, CHEM8, LIPASE, CMETADD #### Unless otherwise noted, all testing performed by [place] [address] CLIA: [id number] Lithograph Operator: Maurice Coello M.D. Oxygen ppres (Bld) 71.8 mm Hg Low 80-100 [facility] [place] [facility] Comment on above: Performed By: #### C BCWOD, PT, PTT, DDIMR, EDCTNI, NTPROBNP, CHEM8, LIPASE, CMETADD #### Unless otherwise noted, all testing performed by [place] [address] CLIA: [id number] Lithograph Operator: Maurice Coello M.D. PCO2 44.1 mm Hg Normal 35-45 [facility] Comment on above: Performed By: #### C BCWOD, PT, PTT, DDIMR, EDCTNI, NTPROBNP, CHEM8, LIPASE, CMETADD #### Unless otherwise noted, all testing performed by [place] [address] CLIA: [id number] Lithograph Operator: Maurice Coello M.D. pCO2 (temp conv.) 44.1 mm Hg Normal 35.0-45.0 [facility] Comment on above: Performed By: #### C BCWOD, PT, PTT, DDIMR, EDCTNI, NTPROBNP, CHEM8, LIPASE, CMETADD #### Unless otherwise noted, all testing performed by [place] [address] CLIA: [id number] Lithograph Operator: Maurice Coello M.D. pH (Bld) 7.389 [pH] Normal 7.350-7.450 [facility] Comment on above: Performed By: #### C BCWOD, PT, PTT, DDIMR, EDCTNI, NTPROBNP, CHEM8, LIPASE, CMETADD #### Unless otherwise noted, all testing performed by [place] [address] CLIA: [id number] Lithograph Operator: Maurice Coello M.D. Site (Bld Gas) RTBRACH [facility] Comment on above: Performed By: #### C BCWOD, PT, PTT, DDIMR, EDCTNI, NTPROBNP, CHEM8, LIPASE, CMETADD #### Unless otherwise noted, all testing performed by [place] [address] CLIA: [id number] Lithograph Operator: Maurice Coello M.D. 25-Hydroxy D Totalon 08-27-2 018 25-Hydroxy D Total 52 ng/mL Normal 30-100 [facility] Comment on above: Result Comment: [...] Unless otherwise noted, all testing performed by [place] [address] CLIA: [id number] Lithograph Operator: Maurice Coello M.D. Albuminon 07-02-2018 Albumin mass conc 3.5 g/dL Normal 3.2-5.2 [facility] Comment on above: Performed By: #### C BCWOD, PT, PTT, DDIMR, EDCTNI, NTPROBNP, CHEM8, LIPASE, CMETADD #### Unless otherwise noted, all testing performed by [place] [address] CLIA: [id number] Lithograph Operator: Maurice Coello M.D. Albumin mass conc 3.5 g/dL Invalid Interpretation Code 3.2 - 5.2 g/dL [facility] BUN and Creatinineon 018 Creatinine mass conc 1.48 mg/dL High 0.40-1.10 [facility] Comment on above: Performed By: #### C BCWOD, PT, PTT, DDIMR, EDCTNI, NTPROBNP, CHEM8, LIPASE, CMETADD #### Unless otherwise noted, all testing performed by [place] [address] CLIA: [id number] Lithograph Operator: Maurice Coello M.D. GFR/1.73 sq M predicted among blacks MDRD vol rate/area (S/P/Bld) 43 mL/min/{1.73_m2} Low >60 [facility] Comment on above: Result Comment: Afri can Cuban GFR Calc Performed By: #### C BCWOD, PT, PTT, DDIMR, EDCTNI, NTPROBNP, CHEM8, LIPASE, CMETADD #### Unless otherwise noted, all testing performed by [place] [address] CLIA: [id number] Lithograph Operator: Maurice Coello M.D. GFR/1.73 sq M predicted among non-blacks MDRD vol rate/area (S/P/Bld) 36 mL/min/{1.73_m2} Low >60 [facility] Comment on above: Result Comment: Non- [...] Unless otherwise noted, all testing performed by [place] [address] CLIA: [id number] Lithograph Operator: Maurice Coello M.D. Urea nitrogen mass conc 14 mg/dL Normal 8-25 O [facility] Comment on above: Performed By: #### C BCWOD, PT, PTT, DDIMR, EDCTNI, NTPROBNP, CHEM8, LIPASE, CMETADD #### Unless otherwise noted, all testing performed by [place] [id number] CLIA: [id number] Lithograph Operator: Maurice Coello M.D. Creatinine mass conc 1.48 mg/dL High 0.4 - 1 .1 mg/dL [facility] GFR/1.73 sq M predicted among blacks MDRD vol rate/area (S/P/Bld) 43 mL/min/{1.73_m2} Low >60 ml/min/1.73sq .m [facility] Comment on above: GFR Calc GFR/1.73 sq M predicted among non-blacks MDRD vol rate/area (S/P/Bld) 36 mL/min/{1.73_m2} Low >60 ml/min/1.73sq .[facility] Comment on above: Non- GFR Calc [...] Invalid Interpretation Code 8 - 25 mg/dL [facility] Calciumon 07-02-2018 Calcium mass conc 9.0 mg/dL Normal 8.4-10.2 [facility] Comment on above: Performed By: #### C BCWOD, PT, PTT, DDIMR, EDCTNI, NTPROBNP, CHEM8, LIPASE, CMETADD #### Unless otherwise noted, all testing performed by [facility] [place] [address] [place] [address] CLIA: [id number] Lithograph Operator: Maurice Coello M.D. Calcium Levelon 07-02-2018 Calcium mass conc 9.0 mg/dL Invalid Interpretation Code 8.4 - 10.2 mg/dL [facility] Electrolyte Panelon 07-02-20 18 Chloride molar conc 100 mmol/L Invalid Interpretation Code 98 - 108 mmol/L [facility] CO2 molar conc 28 mmol/L Invalid Interpretation Code 21 - 32 mmol/L [facility] Potassium molar conc 4.7 mmol/L Invalid Interpretation Code 3.5 - 5.1 mmol/L [facility] Sodium molar conc 133 mmol/L Low 135 - 145 mmol/L [facility] Electrolyteson 07-02-2018 Chloride molar conc 100 mmol/L Normal 98-108 [facility] Comment on above: Performed By: #### C BCWOD, PT, PTT, DDIMR, EDCTNI, NTPROBNP, CHEM8, LIPASE, CMETADD #### Unless otherwise noted, all testing performed by [place] [address] CLIA: [id number] Lithograph Operator: Maurice Coello M.D. CO2 molar conc 28 mmol/L Normal 21-32 [facility] Comment on above: Performed By: #### C BCWOD, PT, PTT, DDIMR, EDCTNI, NTPROBNP, CHEM8, LIPASE, CMETADD #### Unless otherwise noted, all testing performed by [place] [address] CLIA: [id number] Lithograph Operator: Maurice Coello M.D. Potassium molar conc 4.7 mmol/L Normal 3.5-5.1 [facility] Comment on above: Performed By: #### C BCWOD, PT, PTT, DDIMR, EDCTNI, NTPROBNP, CHEM8, LIPASE, CMETADD #### Unless otherwise noted, all testing performed by [place] [address] CLIA: [id number] Lithograph Operator: Maurice Coello M.D. Sodium molar conc 133 mmol/L Low 135-145 [facility] Comment on above: Performed By: #### C BCWOD, PT, PTT, DDIMR, EDCTNI, NTPROBNP, CHEM8, LIPASE, CMETADD #### Unless otherwise noted, all testing performed by [place] [address] CLIA: [id number] Lithograph Operator: Maurice Coello M.D. Hemoglobin and Hematocriton 07-02-2018 Hematocrit Auto Volume Fraction (Bld) 36.3 % Invalid Interpretation Code 34.4 - 44.8 % [facility] Hemoglobin mass conc (Bld) 11.7 g/dL Invalid Interpretation Code 11.6 - 15.4 g/dL [facility] Hgb and Hcton 07-02-2018 Hematocrit Volume Fraction (Bld) 36.3 % Normal 34.4-44.8 [facility] Comment on above: Performed By: #### C BCWOD, PT, PTT, DDIMR, EDCTNI, NTPROBNP, CHEM8, LIPASE, CMETADD #### Unless otherwise noted, all testing performed by [place] [address] CLIA: [id number] Lithograph Operator: Maurice Coello M.D. Hemoglobin mass conc (Bld) 11.7 g/dL Normal 11.6-15.4 [facility] Comment on above: Performed By: #### C BCWOD, PT, PTT, DDIMR, EDCTNI, NTPROBNP, CHEM8, LIPASE, CMETADD #### Unless otherwise noted, all testing performed by [place] [address] CLIA: [id number] Lithograph Operator: Maurice Coello M.D. Otheron 07-02-2018 Interpretation and review of laboratory results Abnormal Invalid Interpretation Code [facility] Parathyroid Hormoneon 2017 Parathyroid Hormone 107.5 pg/mL High 18.4-80.1 [facility] Comment on above: Result Comment: Samp les from patients routinely receiving high dose biotin therapy may show falsely depressed results. Additional information may be required for diagnosis. Performed By: #### C BCWOD, PT, PTT, DDIMR, EDCTNI, NTPROBNP, CHEM8, LIPASE, CMETADD #### Unless otherwise noted, all testing performed by [place] [address] CLIA: [id number] Lithograph Operator: Maurice Coello M.D. Interpretation and review of laboratory results Abnormal Invalid Interpretation Code [facility] Parathyroid Hormone 107.5 pg/mL High 18.4 - 8 0.1 pg/mL [facility] Comment on above: Samples from patient s routinely receiving high dose biotin therapy may show falsely depressed results. Additional information may be required for diagnosis. Phosphoruson 07-02-2018 Phosphate mass conc 3.1 mg/dL Normal 2.7-4.5 [facility] Comment on above: Performed By: #### C BCWOD, PT, PTT, DDIMR, EDCTNI, NTPROBNP, CHEM8, LIPASE, CMETADD #### Unless otherwise noted, all testing performed by [place] [address] CLIA: [id number] Lithograph Operator: Maurice Coello M.D. Phosphate mass conc 3.1 mg/dL Invalid Interpretation Code 2.7 - 4.5 mg/dL [facility] Protein Panel, Urineon 07-02 Creatinine, Urine Random 83.50 mg/dL Normal [facility] Comment on above: Result Comment: No e stablished reference range. Performed By: #### C BCWOD, PT, PTT, DDIMR, EDCTNI, NTPROBNP, CHEM8, LIPASE, CMETADD #### Unless otherwise noted, all testing performed by [place] [address] CLIA: [id number] Lithograph Operator: Maurice Coello M.D. Protein Creatinine Ratio 0.50 High 0.0-0.2 [facility] Comment on above: Performed By: #### C BCWOD, PT, PTT, DDIMR, EDCTNI, NTPROBNP, CHEM8, LIPASE, CMETADD #### Unless otherwise noted, all testing performed by [place] [address] CLIA: [id number] Lithograph Operator: Maurice Coello M.D. Protein mass conc (U) 42.0 mg/dL Normal [facility] Comment on above: Performed By: #### C BCWOD, PT, PTT, DDIMR, EDCTNI, NTPROBNP, CHEM8, LIPASE, CMETADD #### Unless otherwise noted, all testing performed by [place] [address] CLIA: [id number] Lithograph Operator: Maurice Coello M.D. Creatinine, Urine Random 83.50 mg/dL Invalid Interpretation Code [facility] Comment on above: No established refer ence range. Interpretation and review of laboratory results Abnormal Invalid Interpretation Code [facility] Protein, Urine Random 42.0 mg/dL Invalid Interpretation Code [facility] Protein/Creatinine Ratio, Urine 0.50 High [facility] TSHon 07-02-2018 Thyrotropin Qn 2.08 uIU/mL Normal 0.320-5.000 [facility] Comment on above: Result Comment: Samp les from patients routinely receiving high dose biotin therapy (100-300 mg/day) may show falsely decreased results. Please correlate clinically. Performed By: #### C BCWOD, PT, PTT, DDIMR, EDCTNI, NTPROBNP, CHEM8, LIPASE, CMETADD #### Unless otherwise noted, all testing performed by [place] [address] CLIA: [id number] Lithograph Operator: Maurice Coello M.D. Thyrotropin Qn 2.08 m[IU]/L Invalid Interpretation Code [facility] Comment on above: Samples from patient s routinely receiving high dose biotin therapy (100-300 mg/day) may show falsely decreased results. Please correlate clinically. Thryroglobulin Tumor Mrkron 07-02-2018 Thyroglobulin Ab Qn 1.6 [IU]/mL Normal 0.0-3.9 [facility] Comment on above: Result Comment: Valu es obtained from different assay methods or kits may be different and cannot be used intergchangeably. Assay performed by Kellen Rohit [employer] Immunoassay. Test Performed by [facility] [address] [place] [address] Performed By: #### C BCWOD, PT, PTT, DDIMR, EDCTNI, NTPROBNP, CHEM8, LIPASE, CMETADD #### Unless otherwise noted, all testing performed by [place] [address] CLIA: [id number] Lithograph Operator: Maurice Coello M.D. Thyroglobulin, Serum < 0.1 Normal <0.1 [facility] Comment on above: Result Comment: Refe rence range applies to athyrotic individuals. Patients with an intact thyroid are expected to have levels less than or equal to 35 ng/ml. Assay performed by Kellen Rothsay [employer] Immunoassay Performed By: #### C BCWOD, PT, PTT, DDIMR, EDCTNI, NTPROBNP, CHEM8, LIPASE, CMETADD #### Unless otherwise noted, all testing performed by [place] [address] CLIA: [id number] Lithograph Operator: Maurice Coello M.D. Vitamin D, Total, 25-OHon Vitamin D, 25-Hydroxy, Total 52 ng/mL Invalid Interpretation Code 30 - 100 ng/mL [facility] Comment on above: Please note that Flu [...] Calcium mass conc 8.7 mg/dL Normal 8.4-10.2 [facility] Comment on above: Performed By: #### C BCWOD, PT, PTT, DDIMR, EDCTNI, NTPROBNP, CHEM8, LIPASE, CMETADD #### Unless otherwise noted, all testing performed by [place] [address] CLIA: [id number] Lithograph Operator: Maurice Coello M.D. Chloride molar conc 99 mmol/L Normal 98-108 [facility] Comment on above: Performed By: #### C BCWOD, PT, PTT, DDIMR, EDCTNI, NTPROBNP, CHEM8, LIPASE, CMETADD #### Unless otherwise noted, all testing performed by [place] [address] CLIA: [id number] Lithograph Operator: Maurice Coello M.D. CO2 molar conc 29 mmol/L Normal 21-32 [facility] Comment on above: Performed By: #### C BCWOD, PT, PTT, DDIMR, EDCTNI, NTPROBNP, CHEM8, LIPASE, CMETADD #### Unless otherwise noted, all testing performed by [place] [address] CLIA: [id number] Lithograph Operator: Maurice Coello M.D. Creatinine mass conc 1.50 mg/dL High 0.40-1.10 [facility] Comment on above: Performed By: #### C BCWOD, PT, PTT, DDIMR, EDCTNI, NTPROBNP, CHEM8, LIPASE, CMETADD #### Unless otherwise noted, all testing performed by [place] [address] CLIA: [id number] Lithograph Operator: Maurice Coello M.D. GFR/1.73 sq M predicted among blacks MDRD vol rate/area (S/P/Bld) 43 mL/min/{1.73_m2} Low >60 [facility] Comment on above: Result Comment: Afri can Cuban GFR Calc Performed By: #### C BCWOD, PT, PTT, DDIMR, EDCTNI, NTPROBNP, CHEM8, LIPASE, CMETADD #### Unless otherwise noted, all testing performed by [place] [address] CLIA: [id number] Lithograph Operator: Maurice Coello M.D. GFR/1.73 sq M predicted among non-blacks MDRD vol rate/area (S/P/Bld) 35 mL/min/{1.73_m2} Low >60 [facility] Comment on above: Result Comment: Non- [...] Unless otherwise noted, all testing performed by [place] [address] CLIA: [id number] Lithograph Operator: Maurice Coello M.D. Glucose mass conc 108 mg/dL High 70-99 [facility] Comment on above: Result Comment: This test result might be falsely depressed or falsely elevated on samples drawn from patients taking Sulfasalazine and Sulfapyridine. Venipuncture should occur prior to taking either of these drugs. Performed By: #### C BCWOD, PT, PTT, DDIMR, EDCTNI, NTPROBNP, CHEM8, LIPASE, CMETADD #### Unless otherwise noted, all testing performed by [place] [phone] CLIA: [id number] Lithograph Operator: Maurice Coello M.D. Potassium molar conc 5.2 mmol/L High 3.5-5.1 [facility] Comment on above: Performed By: #### C BCWOD, PT, PTT, DDIMR, EDCTNI, NTPROBNP, CHEM8, LIPASE, CMETADD #### Unless otherwise noted, all testing performed by [place] [address] CLIA: [id number] Lithograph Operator: Maurice Coello M.D. Sodium molar conc 133 mmol/L Low 135-145 [facility] Comment on above: Performed By: #### C BCWOD, PT, PTT, DDIMR, EDCTNI, NTPROBNP, CHEM8, LIPASE, CMETADD #### Unless otherwise noted, all testing performed by [place] [address] CLIA: [id number] Lithograph Operator: Maurice Coello M.D. Urea nitrogen mass conc 13 mg/dL Normal 8-25 O [facility] Comment on above: Performed By: #### C BCWOD, PT, PTT, DDIMR, EDCTNI, NTPROBNP, CHEM8, LIPASE, CMETADD #### Unless otherwise noted, all testing performed by [place] [address] CLIA: [id number] Lithograph Operator: Maurice Coello M.D. CBC with Diffon 06-21-2018 Basophils #/vol (Bld) 0.1 K/mcL Normal 0-0.2 [facility] Comment on above: Performed By: #### C BCWOD, PT, PTT, DDIMR, EDCTNI, NTPROBNP, CHEM8, LIPASE, CMETADD #### Unless otherwise noted, all testing performed by [place] [address] CLIA: [id number] Lithograph Operator: Maurice Coello M.D. Basophils/100 WBC (Bld) 1.0 % Normal [facility] Comment on above: Performed By: #### C BCWOD, PT, PTT, DDIMR, EDCTNI, NTPROBNP, CHEM8, LIPASE, CMETADD #### Unless otherwise noted, all testing performed by [place] [address] CLIA: [id number] Lithograph Operator: Maurice Coello M.D. Eosinophils #/vol (Bld) 0.2 K/mcL Normal 0-0.5 [facility] Comment on above: Performed By: #### C BCWOD, PT, PTT, DDIMR, EDCTNI, NTPROBNP, CHEM8, LIPASE, CMETADD #### Unless otherwise noted, all testing performed by [place] [address] CLIA: [id number] Lithograph Operator: Maurice Coello M.D. Eosinophils/100 WBC (Bld) 2.3 % Normal [facility] Comment on above: Performed By: #### C BCWOD, PT, PTT, DDIMR, EDCTNI, NTPROBNP, CHEM8, LIPASE, CMETADD #### Unless otherwise noted, all testing performed by [place] [address] CLIA: [id number] Lithograph Operator: Maurice Coello M.D. Erythrocyte distribution width Ratio (RBC) 15.4 % High 10.0-14.4 [facility] Comment on above: Performed By: #### C BCWOD, PT, PTT, DDIMR, EDCTNI, NTPROBNP, CHEM8, LIPASE, CMETADD #### Unless otherwise noted, all testing performed by [place] [address] CLIA: [id number] Lithograph Operator: Maurice Coello M.D. Hematocrit Volume Fraction (Bld) 33.9 % Low 34.4-44.8 [facility] Comment on above: Performed By: #### C BCWOD, PT, PTT, DDIMR, EDCTNI, NTPROBNP, CHEM8, LIPASE, CMETADD #### Unless otherwise noted, all testing performed by [place] [address] CLIA: [id number] Lithograph Operator: Maurice Coello M.D. Hemoglobin mass conc (Bld) 10.7 g/dL Low 11.6-15.4 [facility] Comment on above: Performed By: #### C BCWOD, PT, PTT, DDIMR, EDCTNI, NTPROBNP, CHEM8, LIPASE, CMETADD #### Unless otherwise noted, all testing performed by [place] [address] CLIA: [id number] Lithograph Operator: Maurice Coello M.D. Lymphocytes #/vol (Bld) 1.6 K/mcL Normal 1.0-3.7 O [facility] Comment on above: Performed By: #### C BCWOD, PT, PTT, DDIMR, EDCTNI, NTPROBNP, CHEM8, LIPASE, CMETADD #### Unless otherwise noted, all testing performed by [place] [address] CLIA: [id number] Lithograph Operator: Maurice Coello M.D. Lymphocytes/100 WBC (Bld) 24.6 % Normal [facility] Comment on above: Performed By: #### C BCWOD, PT, PTT, DDIMR, EDCTNI, NTPROBNP, CHEM8, LIPASE, CMETADD #### Unless otherwise noted, all testing performed by [place] [address] CLIA: [id number] Lithograph Operator: Maurice Coello M.D. MCH Entitic mass (RBC) 25.4 pg Low 27.9-33.9 [facility] Comment on above: Performed By: #### C BCWOD, PT, PTT, DDIMR, EDCTNI, NTPROBNP, CHEM8, LIPASE, CMETADD #### Unless otherwise noted, all testing performed by [place] [address] CLIA: [id number] Lithograph Operator: Maurice Coello M.D. MCHC mass conc (RBC) 31.5 g/dL Low 33.1-35.1 [facility] Comment on above: Performed By: #### C BCWOD, PT, PTT, DDIMR, EDCTNI, NTPROBNP, CHEM8, LIPASE, CMETADD #### Unless otherwise noted, all testing performed by [place] [address] CLIA: [id number] Lithograph Operator: Maurice Coello M.D. MCV Entitic volume (RBC) 80.7 fL Low 82.6-98.9 [facility] Comment on above: Performed By: #### C BCWOD, PT, PTT, DDIMR, EDCTNI, NTPROBNP, CHEM8, LIPASE, CMETADD #### Unless otherwise noted, all testing performed by [place] [address] CLIA: [id number] Lithograph Operator: Maurice Coello M.D. Monocytes #/vol (Bld) 0.6 K/mcL Normal 0.1-0.6 [facility] Comment on above: Performed By: #### C BCWOD, PT, PTT, DDIMR, EDCTNI, NTPROBNP, CHEM8, LIPASE, CMETADD #### Unless otherwise noted, all testing performed by [place] [address] CLIA: [id number] Lithograph Operator: Maurice Coello M.D. Monocytes/100 WBC (Bld) 8.8 % Normal [facility] Comment on above: Performed By: #### C BCWOD, PT, PTT, DDIMR, EDCTNI, NTPROBNP, CHEM8, LIPASE, CMETADD #### Unless otherwise noted, all testing performed by [place] [address] CLIA: [id number] Lithograph Operator: Maurice Coello M.D. Neutrophils #/vol (Bld) 4.2 K/mcL Normal 1.2-6.9 [facility] Comment on above: Performed By: #### C BCWOD, PT, PTT, DDIMR, EDCTNI, NTPROBNP, CHEM8, LIPASE, CMETADD #### Unless otherwise noted, all testing performed by [address] [address] CLIA: [id number] Lithograph Operator: Maurice Coello M.D. Platelet mean volume Entitic volume (Bld) 8.1 fL Normal 7.0-10.6 [facility] Comment on above: Performed By: #### C BCWOD, PT, PTT, DDIMR, EDCTNI, NTPROBNP, CHEM8, LIPASE, CMETADD #### Unless otherwise noted, all testing performed by [place] [address] CLIA: [id number] Lithograph Operator: Maurice Coello M.D. Platelets #/vol (Bld) 309 K/mcL Normal 162-402 [facility] Comment on above: Performed By: #### C BCWOD, PT, PTT, DDIMR, EDCTNI, NTPROBNP, CHEM8, LIPASE, CMETADD #### Unless otherwise noted, all testing performed by [place] [address] CLIA: [id number] Lithograph Operator: Maurice Coello M.D. RBC #/vol (Bld) 4.20 M/mcL Normal 3.7-5.0 [facility] Comment on above: Performed By: #### C BCWOD, PT, PTT, DDIMR, EDCTNI, NTPROBNP, CHEM8, LIPASE, CMETADD #### Unless otherwise noted, all testing performed by [place] [address] CLIA: [id number] Lithograph Operator: Maurice Coello M.D. Segmented Neut % 63.3 % Normal [facility] Comment on above: Performed By: #### C BCWOD, PT, PTT, DDIMR, EDCTNI, NTPROBNP, CHEM8, LIPASE, CMETADD #### Unless otherwise noted, all testing performed by [place] [address] CLIA: [id number] Lithograph Operator: Maurice Coello M.D. WBC #/vol (Bld) 6.6 K/mcL Normal 3.4-10.6 [facility] Comment on above: Performed By: #### C BCWOD, PT, PTT, DDIMR, EDCTNI, NTPROBNP, CHEM8, LIPASE, CMETADD #### Unless otherwise noted, all testing performed by [place] [address] CLIA: [id number] Lithograph Operator: Maurice Coello M.D. Cardiac Troponin-Ion 018 Troponin I.cardiac mass conc No Biomarker evidence of myocardial injury within the past 14 hours. Normal [facility] Comment on above: Performed By: #### C BCWOD, PT, PTT, DDIMR, EDCTNI, NTPROBNP, CHEM8, LIPASE, CMETADD #### Unless otherwise noted, all testing performed by [place] [address] CLIA: [id number] Lithograph Operator: Maurice Coello M.D. Troponin I.cardiac mass conc ng/mL Normal < 45.0 [facility] Comment on above: Result Comment: Elev ation [...] otherwise noted, all testing performed by [address] [address] CLIA: [id number] Lithograph Operator: Maurice Coello M.D. LUNG VENTILATION AND PERFUSI ONon 06-21-2018 LUNG VENTILATION AND PERFUSION Final Report Accession No: [id number] Performed: Jun 21 2018 12:54PM Examination: [...] FINCH M.D. Trans: dw : cc: Normal [facility] Basic Metabolic Panelon 06-06 Calcium mass conc 8.8 mg/dL Normal 8.4-10.2 [facility] Comment on above: Performed By: #### C BCWOD, PT, PTT, DDIMR, EDCTNI, NTPROBNP, CHEM8, LIPASE, CMETADD #### Unless otherwise noted, all testing performed by [place] [address] CLIA: [id number] Lithograph Operator: Maurice Coello M.D. Chloride molar conc 98 mmol/L Normal 98-108 [facility] Comment on above: Performed By: #### C BCWOD, PT, PTT, DDIMR, EDCTNI, NTPROBNP, CHEM8, LIPASE, CMETADD #### Unless otherwise noted, all testing performed by [place] [address] CLIA: [id number] Lithograph Operator: Maurice Coello M.D. CO2 molar conc 24 mmol/L Normal 21-32 [facility] Comment on above: Performed By: #### C BCWOD, PT, PTT, DDIMR, EDCTNI, NTPROBNP, CHEM8, LIPASE, CMETADD #### Unless otherwise noted, all testing performed by [place] [address] CLIA: [id number] Lithograph Operator: Maurice Coello M.D. Creatinine mass conc 1.51 mg/dL High 0.40-1.10 [facility] Comment on above: Performed By: #### C BCWOD, PT, PTT, DDIMR, EDCTNI, NTPROBNP, CHEM8, LIPASE, CMETADD #### Unless otherwise noted, all testing performed by [place] [address] CLIA: [id number] Lithograph Operator: Maurice Coello M.D. GFR/1.73 sq M predicted among blacks MDRD vol rate/area (S/P/Bld) 43 mL/min/{1.73_m2} Low >60 [facility] Comment on above: Result Comment: Afri can [place] GFR Calc Performed By: #### C BCWOD, PT, PTT, DDIMR, EDCTNI, NTPROBNP, CHEM8, LIPASE, CMETADD #### Unless otherwise noted, all testing performed by [place] [address] CLIA: [id number] Lithograph Operator: Maurice Coello M.D. GFR/1.73 sq M predicted among non-blacks MDRD vol rate/area (S/P/Bld) 35 mL/min/{1.73_m2} Low >60 [facility] Comment on above: Result Comment: Non- [...] Unless otherwise noted, all testing performed by [place] [address] CLIA: [id number] Lithograph Operator: Maurice Coello M.D. Glucose mass conc 113 mg/dL High 70-99 [facility] Comment on above: Result Comment: This test result might be falsely depressed or falsely elevated on samples drawn from patients taking Sulfasalazine and Sulfapyridine. Venipuncture should occur prior to taking either of these drugs. Performed By: #### C BCWOD, PT, PTT, DDIMR, EDCTNI, NTPROBNP, CHEM8, LIPASE, CMETADD #### Unless otherwise noted, all testing performed by [place] [address] CLIA: [id number] Lithograph Operator: Maurice Coello M.D. Potassium molar conc 4.9 mmol/L Normal 3.5-5.1 [facility] Comment on above: Performed By: #### C BCWOD, PT, PTT, DDIMR, EDCTNI, NTPROBNP, CHEM8, LIPASE, CMETADD #### Unless otherwise noted, all testing performed by [place] [address] CLIA: [id number] Lithograph Operator: Maurice Coello M.D. Sodium molar conc 132 mmol/L Low 135-145 [facility] Comment on above: Performed By: #### C BCWOD, PT, PTT, DDIMR, EDCTNI, NTPROBNP, CHEM8, LIPASE, CMETADD #### Unless otherwise noted, all testing performed by [place] [address] CLIA: [id number] Lithograph Operator: Maurice Coello M.D. Urea nitrogen mass conc 13 mg/dL Normal 8-25 O [facility] Comment on above: Performed By: #### C BCWOD, PT, PTT, DDIMR, EDCTNI, NTPROBNP, CHEM8, LIPASE, CMETADD #### Unless otherwise noted, all testing performed by [place] [address] CLIA: [id number] Lithograph Operator: Maurice Coello M.D. CBC w/o Diffon 06-20-2018 Erythrocyte distribution width Ratio (RBC) 15.4 % High 10.0-14.4 [facility] Comment on above: Performed By: #### C BCWOD, PT, PTT, DDIMR, EDCTNI, NTPROBNP, CHEM8, LIPASE, CMETADD #### Unless otherwise noted, all testing performed by [place] [address] CLIA: [id number] Lithograph Operator: Maurice Coello M.D. Hematocrit Volume Fraction (Bld) 36.2 % Normal 34.4-44.8 [facility] Comment on above: Performed By: #### C BCWOD, PT, PTT, DDIMR, EDCTNI, NTPROBNP, CHEM8, LIPASE, CMETADD #### Unless otherwise noted, all testing performed by [place] [address] CLIA: [id number] Lithograph Operator: Maurice Coello M.D. Hemoglobin mass conc (Bld) 11.7 g/dL Normal 11.6-15.4 [facility] Comment on above: Performed By: #### C BCWOD, PT, PTT, DDIMR, EDCTNI, NTPROBNP, CHEM8, LIPASE, CMETADD #### Unless otherwise noted, all testing performed by [place] [address] CLIA: [id number] Lithograph Operator: Maurice Coello M.D. MCH Entitic mass (RBC) 25.8 pg Low 27.9-33.9 [facility] Comment on above: Performed By: #### C BCWOD, PT, PTT, DDIMR, EDCTNI, NTPROBNP, CHEM8, LIPASE, CMETADD #### Unless otherwise noted, all testing performed by [place] [address] CLIA: [id number] Lithograph Operator: Maurice Coello M.D. MCHC mass conc (RBC) 32.3 g/dL Low 33.1-35.1 [facility] Comment on above: Performed By: #### C BCWOD, PT, PTT, DDIMR, EDCTNI, NTPROBNP, CHEM8, LIPASE, CMETADD #### Unless otherwise noted, all testing performed by [place] [address] CLIA: [id number] Lithograph Operator: Maurice Coello M.D. MCV Entitic volume (RBC) 79.7 fL Low 82.6-98.9 [facility] Comment on above: Performed By: #### C BCWOD, PT, PTT, DDIMR, EDCTNI, NTPROBNP, CHEM8, LIPASE, CMETADD #### Unless otherwise noted, all testing performed by [place] [address] CLIA: [id number] Lithograph Operator: Maurice Coello M.D. Platelet mean volume Entitic volume (Bld) 7.5 fL Normal 7.0-10.6 [facility] Comment on above: Performed By: #### C BCWOD, PT, PTT, DDIMR, EDCTNI, NTPROBNP, CHEM8, LIPASE, CMETADD #### Unless otherwise noted, all testing performed by [place] [address] CLIA: [id number] Lithograph Operator: Maurice Coello M.D. Platelets #/vol (Bld) 341 K/mcL Normal 162-402 [facility] Comment on above: Performed By: #### C BCWOD, PT, PTT, DDIMR, EDCTNI, NTPROBNP, CHEM8, LIPASE, CMETADD #### Unless otherwise noted, all testing performed by [place] [address] CLIA: [id number] Lithograph Operator: Maurice Coello M.D. RBC #/vol (Bld) 4.53 M/mcL Normal 3.7-5.0 [facility] Comment on above: Performed By: #### C BCWOD, PT, PTT, DDIMR, EDCTNI, NTPROBNP, CHEM8, LIPASE, CMETADD #### Unless otherwise noted, all testing performed by [place] [address] CLIA: [id number] Lithograph Operator: Maurice Coello M.D. WBC #/vol (Bld) 9.1 K/mcL Normal 3.4-10.6 [facility] Comment on above: Performed By: #### C BCWOD, PT, PTT, DDIMR, EDCTNI, NTPROBNP, CHEM8, LIPASE, CMETADD #### Unless otherwise noted, all testing performed by [facility] [address] [place], [place] [address] CLIA: [id number] Lithograph Operator: Maurice Coello M.D. CHEST (ONE VIEW ONLY)on 06-06 CHEST (ONE VIEW ONLY) Final Report Accession No: [id number] Performed: Jun 20 2018 5:35PM Examination: [...] SCHMITZ M.D. Trans: tk : cc: Normal [facility] CPKon 06-20-2018 CPK 413 U/L High 40-170 [facility] Comment on above: Performed By: #### C BCWOD, PT, PTT, DDIMR, EDCTNI, NTPROBNP, CHEM8, LIPASE, CMETADD #### Unless otherwise noted, all testing performed by [facility] [address] [place], [place] [address] CLIA: [id number] Lithograph Operator: Maurice Coello M.D. Cardiac Troponin-Ion 018 Troponin I.cardiac mass conc ng/mL Normal < 45.0 [facility] Comment on above: Result Comment: Elev ation [...] Unless otherwise noted, all testing performed by [facility] [address] [facility]. [place], [place] [address] CLIA: [id number] Lithograph Operator: Maurice Coello M.D. D-Dimeron 06-20-2018 D-Dimer 0.90 mcg/ml (FEU) High < .5 [facility] Comment on above: Result Comment: This test is intended for use in conjunction with a clinical pretest probability (PTP) assessment model to exclude pulmonary embolism (PE) and deep vein thrombosis (DVT) in outpatients suspected of PE or DVT. Performed By: #### C BCWOD, PT, PTT, DDIMR, EDCTNI, NTPROBNP, CHEM8, LIPASE, CMETADD #### Unless otherwise noted, all testing performed by [facility] [address] [facility] [place], [place] [address] CLIA: [id number] Lithograph Operator: Maurice Coello M.D. ED Cardiac Troponin-Ion 06-06 Troponin I.cardiac mass conc ng/mL Normal < 45 [facility] Comment on above: Result Comment: Elev ation [...] Unless otherwise noted, all testing performed by [place] [address] CLIA: [id number] Lithograph Operator: Maurice Coello M.D. Lipid Panelon 06-20-2018 Cholesterol in HDL mass conc 41 mg/dL Normal 40-59 [facility] Comment on above: Performed By: #### C BCWOD, PT, PTT, DDIMR, EDCTNI, NTPROBNP, CHEM8, LIPASE, CMETADD #### Unless otherwise noted, all testing performed by [place] [address] CLIA: [id number] Lithograph Operator: Maurice Coello M.D. Cholesterol in LDL mass conc 122 mg/dL Normal 10-150 [facility] Comment on above: Performed By: #### C BCWOD, PT, PTT, DDIMR, EDCTNI, NTPROBNP, CHEM8, LIPASE, CMETADD #### Unless otherwise noted, all testing performed by [place] [address] CLIA: [id number] Lithograph Operator: Maurice Coello M.D. Cholesterol in VLDL mass conc 42 mg/dL High 5-40 [facility] Comment on above: Performed By: #### C BCWOD, PT, PTT, DDIMR, EDCTNI, NTPROBNP, CHEM8, LIPASE, CMETADD #### Unless otherwise noted, all testing performed by [place] [address] CLIA: [id number] Lithograph Operator: Maurice Coello M.D. Cholesterol mass conc 205 mg/dL High 100-199 [facility] Comment on above: Performed By: #### C BCWOD, PT, PTT, DDIMR, EDCTNI, NTPROBNP, CHEM8, LIPASE, CMETADD #### Unless otherwise noted, all testing performed by [place] [address] CLIA: [id number] Lithograph Operator: Maurice Coello M.D. Cholesterol.total/Camille sterol in HDL mass ratio 5.0 {ratio} Normal 3.2-5.0 [facility] Comment on above: Result Comment: Fema le Coronary Heart Disease Risk Factor (CHDRF): Average risk= 4.4 1/2 Average risk= 3.3 2 times Average risk= 7.1 Performed By: #### C BCWOD, PT, PTT, DDIMR, EDCTNI, NTPROBNP, CHEM8, LIPASE, CMETADD #### Unless otherwise noted, all testing performed by [place] [address] CLIA: [id number] Lithograph Operator: Maurice Coello M.D. Triglyceride mass conc 209 mg/dL High 25-120 [facility] Comment on above: Performed By: #### C BCWOD, PT, PTT, DDIMR, EDCTNI, NTPROBNP, CHEM8, LIPASE, CMETADD #### Unless otherwise noted, all testing performed by [place] [address] CLIA: [id number] Lithograph Operator: Maurice Coello M.D. Troponin I.cardiac mass conc No Biomarker evidence of myocardial injury within the past 14 hours. Normal [facility] Comment on above: Performed By: #### C BCWOD, PT, PTT, DDIMR, EDCTNI, NTPROBNP, CHEM8, LIPASE, CMETADD #### Unless otherwise noted, all testing performed by [place] [address] CLIA: [id number] Lithograph Operator: Maurice Coello M.D. NT-Pro BNP, Serumon 06-20-20 18 Natriuretic peptide B mass conc (Bld) 494 pg/mL High 0-125 [facility] Comment on above: Performed By: #### C BCWOD, PT, PTT, DDIMR, EDCTNI, NTPROBNP, CHEM8, LIPASE, CMETADD #### Unless otherwise noted, all testing performed by [place] [address] CLIA: [id number] Lithograph Operator: Maurice Coello M.D. Partial Thromboplastin Timeo n 06-20-2018 aPTT Coag time (Bld) 30 s Normal 23.0-34.0 [facility] Comment on above: Result Comment: Uday silva therapeutic range for PTT is 68-104 sec. Performed By: #### C BCWOD, PT, PTT, DDIMR, EDCTNI, NTPROBNP, CHEM8, LIPASE, CMETADD #### Unless otherwise noted, all testing performed by [place] [address] CLIA: [id number] Lithograph Operator: Maurice Coello M.D. Protimeon 06-20-2018 INR Coag RelTime (PPP) 0.99 {INR} Normal [facility] Comment on above: Result Comment: The [employer] recommended therapeutic range for Warfarin (Coumadin) therapy goals: PROPHYLAXIS/TREATMENT of: INR Venous Thrombosis, Pulmonary Embolism 2.0-3.0 Prevention of VTE (Orthopedic Surgery) 2.0-3.0 Atrial Fibrillation 2.0-3.0 Myocardial Infarction 2.0-3.0 Mechanical Prosthetic Heart Valves (Aortic position) 2.0-3.0 Mechanical Prosthetic Heart Valves (Mitral Position) 2.5-3.5 [employer] evidence-based clinical practice guidelines. CHEST. 2012 (9th ed) Performed By: #### C BCWOD, PT, PTT, DDIMR, EDCTNI, NTPROBNP, CHEM8, LIPASE, CMETADD #### Unless otherwise noted, all testing performed by [place] [address] CLIA: [id number] Lithograph Operator: Maurice Coello M.D. Prothrombin time (PT) Coag time (PPP) 12.8 s Normal 11.8-14.3 [facility] Comment on above: Performed By: #### C BCWOD, PT, PTT, DDIMR, EDCTNI, NTPROBNP, CHEM8, LIPASE, CMETADD #### Unless otherwise noted, all testing performed by [place] [address] CLIA: [id number] Lithograph Operator: Maurice Coello M.D. Urinalysis, Routineon 2017 Bilirubin,Urine Negative Normal NEG;NEGATIVE [facility] Comment on above: Performed By: #### C BCWOD, PT, PTT, DDIMR, EDCTNI, NTPROBNP, CHEM8, LIPASE, CMETADD #### Unless otherwise noted, all testing performed by [place] [address] CLIA: [id number] Lithograph Operator: Maurice Coello M.D. Blood,Urine Negative Normal NEG;NEGATIVE [facility] Comment on above: Performed By: #### C BCWOD, PT, PTT, DDIMR, EDCTNI, NTPROBNP, CHEM8, LIPASE, CMETADD #### Unless otherwise noted, all testing performed by [place] [address] CLIA: [id number] Lithograph Operator: Maurice Coello M.D. Character Nom (U) Clear Normal [facility] Comment on above: Performed By: #### C BCWOD, PT, PTT, DDIMR, EDCTNI, NTPROBNP, CHEM8, LIPASE, CMETADD #### Unless otherwise noted, all testing performed by [place] [address] CLIA: [id number] Lithograph Operator: Maurice Coello M.D. Color Nom (U) Yellow Normal [facility] Comment on above: Performed By: #### C BCWOD, PT, PTT, DDIMR, EDCTNI, NTPROBNP, CHEM8, LIPASE, CMETADD #### Unless otherwise noted, all testing performed by [place] [phone] CLIA: [id number] Lithograph Operator: Maurice Coello M.D. Glucose Ql (U) Negative Normal NEG;NEGATIVE [facility] Comment on above: Performed By: #### C BCWOD, PT, PTT, DDIMR, EDCTNI, NTPROBNP, CHEM8, LIPASE, CMETADD #### Unless otherwise noted, all testing performed by [place] [address] CLIA: [id number] Lithograph Operator: Maurice Coello M.D. Ketone,Urine Negative Normal NEG;NEGATIVE [facility] Comment on above: Performed By: #### C BCWOD, PT, PTT, DDIMR, EDCTNI, NTPROBNP, CHEM8, LIPASE, CMETADD #### Unless otherwise noted, all testing performed by [place] [address] CLIA: [id number] Lithograph Operator: Maurice Coello M.D. Leuk.Esterase,Urine Negative Normal Negative [facility] Comment on above: Performed By: #### C BCWOD, PT, PTT, DDIMR, EDCTNI, NTPROBNP, CHEM8, LIPASE, CMETADD #### Unless otherwise noted, all testing performed by [place] [address] CLIA: [id number] Lithograph Operator: Maurice Coello M.D. Nitrite,Urine Negative Normal NEG;NEGATIVE [facility] Comment on above: Performed By: #### C BCWOD, PT, PTT, DDIMR, EDCTNI, NTPROBNP, CHEM8, LIPASE, CMETADD #### Unless otherwise noted, all testing performed by [place] [address] CLIA: [id number] Lithograph Operator: Maurice Coello M.D. pH (U) 5.0 [pH] Normal 4.5-8.0 [facility] Comment on above: Performed By: #### C BCWOD, PT, PTT, DDIMR, EDCTNI, NTPROBNP, CHEM8, LIPASE, CMETADD #### Unless otherwise noted, all testing performed by [place] [address] CLIA: [id number] Lithograph Operator: Maurice Coello M.D. Protein mass conc (U) Negative Normal NEG;NEGATIVE [facility] Comment on above: Performed By: #### C BCWOD, PT, PTT, DDIMR, EDCTNI, NTPROBNP, CHEM8, LIPASE, CMETADD #### Unless otherwise noted, all testing performed by [place] [address] CLIA: [id number] Lithograph Operator: Maurice Coello M.D. Specific [place],Urine 1.004 Normal 1.003-1.029 [facility] Comment on above: Performed By: #### C BCWOD, PT, PTT, DDIMR, EDCTNI, NTPROBNP, CHEM8, LIPASE, CMETADD #### Unless otherwise noted, all testing performed by [place] [address] CLIA: [id number] Lithograph Operator: Maurice Coello M.D. Squamous Epithelial < 1 Normal 0-40 [facility] Comment on above: Performed By: #### C BCWOD, PT, PTT, DDIMR, EDCTNI, NTPROBNP, CHEM8, LIPASE, CMETADD #### Unless otherwise noted, all testing performed by [place] [address] CLIA: [id number] Lithograph Operator: Maurice Coello M.D. Urobilinogen,Urine < 2.0 Normal <2 [facility] Comment on above: Performed By: #### C BCWOD, PT, PTT, DDIMR, EDCTNI, NTPROBNP, CHEM8, LIPASE, CMETADD #### Unless otherwise noted, all testing performed by [place] [address] CLIA: [id number] Lithograph Operator: Maurice Coello M.D. WBC LM.HPF #/area (Urine sed) /[HPF] Normal 0-5 [facility] Comment on above: Performed By: #### C BCWOD, PT, PTT, DDIMR, EDCTNI, NTPROBNP, CHEM8, LIPASE, CMETADD #### Unless otherwise noted, all testing performed by [place] [address] CLIA: [id number] Lithograph Operator: Maurice Coello M.D. SHOULDER 2 OR MORE VIEWSon 0 05-18-2018 SHOULDER 2 OR MORE VIEWS Final Report Accession No: [id number] Performed: May 18 2018 9:38AM Examination: [...] CADENA M.D. Trans: n/a : cc: Normal [facility] BUN and Creatinineon 04--2 018 Creatinine 1.60 mg/dL High 0.40-1.10 [facility] Comment on above: Performed By: #### C BCWOD, PT, PTT, DDIMR, EDCTNI, NTPROBNP, CHEM8, LIPASE, CMETADD #### Unless otherwise noted, all testing performed by [place] [address] CLIA: [id number] Lithograph Operator: Maurice Coello M.D. eGFR (black) 40 mL/min/{1.73_m2} Low >60 [facility] Comment on above: Result Comment: Afri can Cuban GFR Calc Performed By: #### C BCWOD, PT, PTT, DDIMR, EDCTNI, NTPROBNP, CHEM8, LIPASE, CMETADD #### Unless otherwise noted, all testing performed by [place] [address] CLIA: [id number] Lithograph Operator: Maurice Coello M.D. eGFR (non-black) 33 mL/min/{1.73_m2} Low >60 [facility] Comment on above: Result Comment: Non- GFR [...] Unless otherwise noted, all testing performed by [place] [address] CLIA: [id number] Lithograph Operator: Maurice Coello M.D. Interpretation and review of laboratory results Abnormal Invalid Interpretation Code [facility] Urea nitrogen 14 mg/dL Normal 8-25 [facility] Comment on above: Performed By: #### C BCWOD, PT, PTT, DDIMR, EDCTNI, NTPROBNP, CHEM8, LIPASE, CMETADD #### Unless otherwise noted, all testing performed by [place] [address] CLIA: [id number] Lithograph Operator: Maurice Coello M.D. Electrolyte Panelon 02-06-20 18 Chloride 104 mmol/L Normal 98-108 [facility] Comment on above: Performed By: #### C BCWOD, PT, PTT, DDIMR, EDCTNI, NTPROBNP, CHEM8, LIPASE, CMETADD #### Unless otherwise noted, all testing performed by [place] [address] CLIA: [id number] Lithograph Operator: Maurice Coello M.D. CO2 27 mmol/L Normal 21-32 [facility] Comment on above: Performed By: #### C BCWOD, PT, PTT, DDIMR, EDCTNI, NTPROBNP, CHEM8, LIPASE, CMETADD #### Unless otherwise noted, all testing performed by [place] [address] CLIA: [id number] Lithograph Operator: Maurice Coello M.D. Potassium 4.5 mmol/L Normal 3.5-5.1 [facility] Comment on above: Performed By: #### C BCWOD, PT, PTT, DDIMR, EDCTNI, NTPROBNP, CHEM8, LIPASE, CMETADD #### Unless otherwise noted, all testing performed by [place] [address] CLIA: [id number] Lithograph Operator: Maurice Coello M.D. Sodium 139 mmol/L Normal 135-145 [facility] Comment on above: Performed By: #### C BCWOD, PT, PTT, DDIMR, EDCTNI, NTPROBNP, CHEM8, LIPASE, CMETADD #### Unless otherwise noted, all testing performed by [place] [address] CLIA: [id number] Lithograph Operator: Maurice Coello M.D. Hemoglobin and Hematocriton 02-05-2018 Hematocrit (HCT) 37.8 % Invalid Interpretation Code 34.4 - 44.8 % [facility] Hemoglobin (HGB) 12.2 g/dL Normal 11.6-15.4 [facility] Comment on above: Performed By: #### C BCWOD, PT, PTT, DDIMR, EDCTNI, NTPROBNP, CHEM8, LIPASE, CMETADD #### Unless otherwise noted, all testing performed by [place] [address] CLIA: [id number] Lithograph Operator: Maurice Coello M.D. Hgb and Hcton 02-05-2018 Hematocrit Volume Fraction (Bld) 37.8 % Normal 34.4-44.8 [facility] Comment on above: Performed By: #### C BCWOD, PT, PTT, DDIMR, EDCTNI, NTPROBNP, CHEM8, LIPASE, CMETADD #### Unless otherwise noted, all testing performed by [place] [address] CLIA: [id number] Lithograph Operator: Maurice Coello M.D. Protein Panel, Urineon 02-05 Creatinine, Urine Random 67.60 mg/dL Normal [facility] Comment on above: Result Comment: No e stablished reference range. Performed By: #### C BCWOD, PT, PTT, DDIMR, EDCTNI, NTPROBNP, CHEM8, LIPASE, CMETADD #### Unless otherwise noted, all testing performed by [place] [address] CLIA: [id number] Lithograph Operator: Maurice Coello M.D. Interpretation and review of laboratory results Abnormal Invalid Interpretation Code [facility] Protein Creatinine Ratio 0.21 High 0.0-0.2 [facility] Comment on above: Performed By: #### C BCWOD, PT, PTT, DDIMR, EDCTNI, NTPROBNP, CHEM8, LIPASE, CMETADD #### Unless otherwise noted, all testing performed by [place] [address] CLIA: [id number] Lithograph Operator: Maurice Coello M.D. Protein mass conc (U) 14.3 mg/dL Normal [facility] Comment on above: Performed By: #### C BCWOD, PT, PTT, DDIMR, EDCTNI, NTPROBNP, CHEM8, LIPASE, CMETADD #### Unless otherwise noted, all testing performed by [place] [address] CLIA: [id number] Lithograph Operator: Maurice Coello M.D. Protein, Urine Random 14.3 mg/dL Invalid Interpretation Code [facility] Protein/Creatinine Ratio, Urine 0.21 1 High 0.0 - 0.2 [facility] Basic Metabolic Panelon - Calcium mass conc 8.4 mg/dL Normal 8.4-10.2 [facility] Comment on above: Performed By: #### C BCWOD, PT, PTT, DDIMR, EDCTNI, NTPROBNP, CHEM8, LIPASE, CMETADD #### Unless otherwise noted, all testing performed by [place] [address] CLIA: [id number] Lithograph Operator: Maurice Coello M.D. Chloride molar conc 107 mmol/L Normal 98-108 [facility] Comment on above: Performed By: #### C BCWOD, PT, PTT, DDIMR, EDCTNI, NTPROBNP, CHEM8, LIPASE, CMETADD #### Unless otherwise noted, all testing performed by [place] [address] CLIA: [id number] Lithograph Operator: Maurice Coello M.D. CO2 molar conc 24 mmol/L Normal 21-32 [facility] Comment on above: Performed By: #### C BCWOD, PT, PTT, DDIMR, EDCTNI, NTPROBNP, CHEM8, LIPASE, CMETADD #### Unless otherwise noted, all testing performed by [place] [address] CLIA: [id number] Lithograph Operator: Maurice Coello M.D. Creatinine mass conc 1.53 mg/dL High 0.40-1.10 [facility] Comment on above: Performed By: #### C BCWOD, PT, PTT, DDIMR, EDCTNI, NTPROBNP, CHEM8, LIPASE, CMETADD #### Unless otherwise noted, all testing performed by [place] [address] CLIA: [id number] Lithograph Operator: Maurice Coello M.D. GFR/1.73 sq M predicted among blacks MDRD vol rate/area (S/P/Bld) 42 mL/min/{1.73_m2} Low >60 [facility] Comment on above: Result Comment: Afri can Cuban GFR Calc Performed By: #### C BCWOD, PT, PTT, DDIMR, EDCTNI, NTPROBNP, CHEM8, LIPASE, CMETADD #### Unless otherwise noted, all testing performed by [place] [address] CLIA: [id number] Lithograph Operator: Maurice Coello M.D. GFR/1.73 sq M predicted among non-blacks MDRD vol rate/area (S/P/Bld) 35 mL/min/{1.73_m2} Low >60 [facility] Comment on above: Result Comment: Non- [...] Unless otherwise noted, all testing performed by [place] [address] CLIA: [id number] Lithograph Operator: Maurice Coello M.D. Glucose mass conc 147 mg/dL High 70-99 [facility] Comment on above: Result Comment: This test result might be falsely depressed or falsely elevated on samples drawn from patients taking Sulfasalazine and Sulfapyridine. Venipuncture should occur prior to taking either of these drugs. Performed By: #### C BCWOD, PT, PTT, DDIMR, EDCTNI, NTPROBNP, CHEM8, LIPASE, CMETADD #### Unless otherwise noted, all testing performed by [place] [address] CLIA: [id number] Lithograph Operator: Maurice Coello M.D. Potassium molar conc 5.3 mmol/L High 3.5-5.1 [facility] Comment on above: Performed By: #### C BCWOD, PT, PTT, DDIMR, EDCTNI, NTPROBNP, CHEM8, LIPASE, CMETADD #### Unless otherwise noted, all testing performed by [place] [address] CLIA: [id number] Lithograph Operator: Maurice Coello M.D. Sodium molar conc 138 mmol/L Normal 135-145 [facility] Comment on above: Performed By: #### C BCWOD, PT, PTT, DDIMR, EDCTNI, NTPROBNP, CHEM8, LIPASE, CMETADD #### Unless otherwise noted, all testing performed by [place] [address] CLIA: [id number] Lithograph Operator: Maurice Coello M.D. Urea nitrogen mass conc 14 mg/dL Normal 8-25 [facility] Comment on above: Performed By: #### C BCWOD, PT, PTT, DDIMR, EDCTNI, NTPROBNP, CHEM8, LIPASE, CMETADD #### Unless otherwise noted, all testing performed by [place] [address] CLIA: [id number] Lithograph Operator: Maurice Ceollo M.D. CBC with Diffon 01-30-2018 Basophils #/vol (Bld) 0.0 K/mcL Normal 0-0.2 [facility] Comment on above: Performed By: #### C BCWOD, PT, PTT, DDIMR, EDCTNI, NTPROBNP, CHEM8, LIPASE, CMETADD #### Unless otherwise noted, all testing performed by [place] [address] CLIA: [id number] Lithograph Operator: Maurice Coello M.D. Basophils/100 WBC (Bld) 0.3 % Normal [facility] Comment on above: Performed By: #### C BCWOD, PT, PTT, DDIMR, EDCTNI, NTPROBNP, CHEM8, LIPASE, CMETADD #### Unless otherwise noted, all testing performed by [place] [address] CLIA: [id number] Lithograph Operator: Maurice Coello M.D. Eosinophils #/vol (Bld) 0.0 K/mcL Normal 0-0.5 [facility] Comment on above: Performed By: #### C BCWOD, PT, PTT, DDIMR, EDCTNI, NTPROBNP, CHEM8, LIPASE, CMETADD #### Unless otherwise noted, all testing performed by [place] [address] CLIA: [id number] Lithograph Operator: Maurice Coello M.D. Eosinophils/100 WBC (Bld) 0.1 % Normal [facility] Comment on above: Performed By: #### C BCWOD, PT, PTT, DDIMR, EDCTNI, NTPROBNP, CHEM8, LIPASE, CMETADD #### Unless otherwise noted, all testing performed by [place] [address] CLIA: [id number] Lithograph Operator: Maurice Coello M.D. Erythrocyte distribution width Ratio (RBC) 17.8 % High 10.0-14.4 [facility] Comment on above: Performed By: #### C BCWOD, PT, PTT, DDIMR, EDCTNI, NTPROBNP, CHEM8, LIPASE, CMETADD #### Unless otherwise noted, all testing performed by [place] [address] CLIA: [id number] Lithograph Operator: Maurice Coello M.D. Hematocrit Volume Fraction (Bld) 34.8 % Normal 34.4-44.8 [facility] Comment on above: Performed By: #### C BCWOD, PT, PTT, DDIMR, EDCTNI, NTPROBNP, CHEM8, LIPASE, CMETADD #### Unless otherwise noted, all testing performed by [place] [address] CLIA: [id number] Lithograph Operator: Maurice Coello M.D. Hemoglobin mass conc (Bld) 11.3 g/dL Low 11.6-15.4 [facility] Comment on above: Performed By: #### C BCWOD, PT, PTT, DDIMR, EDCTNI, NTPROBNP, CHEM8, LIPASE, CMETADD #### Unless otherwise noted, all testing performed by [place] [address] CLIA: [id number] Lithograph Operator: Maurice Coello M.D. Lymphocytes #/vol (Bld) 0.6 K/mcL Low 1.0-3.7 [facility] Comment on above: Performed By: #### C BCWOD, PT, PTT, DDIMR, EDCTNI, NTPROBNP, CHEM8, LIPASE, CMETADD #### Unless otherwise noted, all testing performed by [place] [address] CLIA: [id number] Lithograph Operator: Maurice Coello M.D. Lymphocytes/100 WBC (Bld) 8.3 % Normal [facility] Comment on above: Performed By: #### C BCWOD, PT, PTT, DDIMR, EDCTNI, NTPROBNP, CHEM8, LIPASE, CMETADD #### Unless otherwise noted, all testing performed by [place] [address] CLIA: [id number] Lithograph Operator: Maurice Coello M.D. MCH Entitic mass (RBC) 26.1 pg Low 27.9-33.9 [facility] Comment on above: Performed By: #### C BCWOD, PT, PTT, DDIMR, EDCTNI, NTPROBNP, CHEM8, LIPASE, CMETADD #### Unless otherwise noted, all testing performed by [place] [address] CLIA: [id number] Lithograph Operator: Maurice Coello M.D. MCHC mass conc (RBC) 32.5 g/dL Low 33.1-35.1 [facility] Comment on above: Performed By: #### C BCWOD, PT, PTT, DDIMR, EDCTNI, NTPROBNP, CHEM8, LIPASE, CMETADD #### Unless otherwise noted, all testing performed by [place] [address] CLIA: [id number] Lithograph Operator: Maurice Coello M.D. MCV Entitic volume (RBC) 80.3 fL Low 82.6-98.9 [facility] Comment on above: Performed By: #### C BCWOD, PT, PTT, DDIMR, EDCTNI, NTPROBNP, CHEM8, LIPASE, CMETADD #### Unless otherwise noted, all testing performed by [place] [address] CLIA: [id number] Lithograph Operator: Maurice Coello M.D. Monocytes #/vol (Bld) 0.1 K/mcL Normal 0.1-0.6 [facility] Comment on above: Performed By: #### C BCWOD, PT, PTT, DDIMR, EDCTNI, NTPROBNP, CHEM8, LIPASE, CMETADD #### Unless otherwise noted, all testing performed by [place] [address] CLIA: [id number] Lithograph Operator: Maurice Coello M.D. Monocytes/100 WBC (Bld) 0.7 % Normal [facility] Comment on above: Performed By: #### C BCWOD, PT, PTT, DDIMR, EDCTNI, NTPROBNP, CHEM8, LIPASE, CMETADD #### Unless otherwise noted, all testing performed by [place] [address] CLIA: [id number] Lithograph Operator: Maurice Coello M.D. Neutrophils #/vol (Bld) 6.8 K/mcL Normal 1.2-6.9 [facility] Comment on above: Performed By: #### C BCWOD, PT, PTT, DDIMR, EDCTNI, NTPROBNP, CHEM8, LIPASE, CMETADD #### Unless otherwise noted, all testing performed by [place] [address] CLIA: [id number] Lithograph Operator: Maurice Coello M.D. Platelet mean volume Entitic volume (Bld) 8.3 fL Normal 7.0-10.6 [facility] Comment on above: Performed By: #### C BCWOD, PT, PTT, DDIMR, EDCTNI, NTPROBNP, CHEM8, LIPASE, CMETADD #### Unless otherwise noted, all testing performed by [place] [address] CLIA: [id number] Lithograph Operator: Maurice Coello M.D. Platelets #/vol (Bld) 281 K/mcL Normal 162-402 [facility] Comment on above: Performed By: #### C BCWOD, PT, PTT, DDIMR, EDCTNI, NTPROBNP, CHEM8, LIPASE, CMETADD #### Unless otherwise noted, all testing performed by [place] [address] CLIA: [id number] Lithograph Operator: Maurice Coello M.D. RBC #/vol (Bld) 4.34 M/mcL Normal 3.7-5.0 [facility] Comment on above: Performed By: #### C BCWOD, PT, PTT, DDIMR, EDCTNI, NTPROBNP, CHEM8, LIPASE, CMETADD #### Unless otherwise noted, all testing performed by [place] [address] CLIA: [id number] Lithograph Operator: Maurice Coello M.D. Segmented Neut % 90.6 % Normal [facility] Comment on above: Performed By: #### C BCWOD, PT, PTT, DDIMR, EDCTNI, NTPROBNP, CHEM8, LIPASE, CMETADD #### Unless otherwise noted, all testing performed by [address] [place], [place] [address] CLIA: [id number] Lithograph Operator: Maurice Coello M.D. WBC #/vol (Bld) 7.5 K/mcL Normal 3.4-10.6 [facility] Comment on above: Performed By: #### C BCWOD, PT, PTT, DDIMR, EDCTNI, NTPROBNP, CHEM8, LIPASE, CMETADD #### Unless otherwise noted, all testing performed by [place] [address] CLIA: [id number] Lithograph Operator: Maurice Coello M.D. Cardiac Troponin-Ion 018 Troponin I.cardiac mass conc No Biomarker evidence of myocardial injury within the past 14 hours. Normal [facility] Comment on above: Performed By: #### C BCWOD, PT, PTT, DDIMR, EDCTNI, NTPROBNP, CHEM8, LIPASE, CMETADD #### Unless otherwise noted, all testing performed by [place] [address] CLIA: [id number] Lithograph Operator: Maurice Coello M.D. Troponin I.cardiac mass conc ng/mL Normal < 45.0 [facility] Comment on above: Result Comment: Elev ation [...] Unless otherwise noted, all testing performed by [place] [address] CLIA: [id number] Lithograph Operator: Maurice Coello M.D. Troponin I.cardiac mass conc No Biomarker evidence of myocardial injury within the past 14 hours. Normal [facility] Comment on above: Performed By: #### C BCWOD, PT, PTT, DDIMR, EDCTNI, NTPROBNP, CHEM8, LIPASE, CMETADD #### Unless otherwise noted, all testing performed by [place] [address] CLIA: [id number] Lithograph Operator: Maurice Coello M.D. LUNG VENTILATION AND PERFUSI ONon 01-30-2018 LUNG VENTILATION AND PERFUSION Final Report Accession No: [id number] Performed: Jan 30 2018 2:17PM Examination: [...] PEREZ M.D. Trans: [email or web address] : cc: Normal [facility] Basic Metabolic Panelon 01-05 Calcium mass conc 8.9 mg/dL Normal 8.4-10.2 [facility] Comment on above: Performed By: #### C BCWOD, PT, PTT, DDIMR, EDCTNI, NTPROBNP, CHEM8, LIPASE, CMETADD #### Unless otherwise noted, all testing performed by [address] [place] [address] CLIA: [id number] Lithograph Operator: Maurice Coello M.D. Chloride molar conc 104 mmol/L Normal 98-108 [facility] Comment on above: Performed By: #### C BCWOD, PT, PTT, DDIMR, EDCTNI, NTPROBNP, CHEM8, LIPASE, CMETADD #### Unless otherwise noted, all testing performed by [place] [address] CLIA: [id number] Lithograph Operator: Maurice Coello M.D. CO2 molar conc 27 mmol/L Normal 21-32 [facility] Comment on above: Performed By: #### C BCWOD, PT, PTT, DDIMR, EDCTNI, NTPROBNP, CHEM8, LIPASE, CMETADD #### Unless otherwise noted, all testing performed by [place] [address] CLIA: [id number] Lithograph Operator: Maurice Coello M.D. Creatinine mass conc 1.66 mg/dL High 0.40-1.10 [facility] Comment on above: Performed By: #### C BCWOD, PT, PTT, DDIMR, EDCTNI, NTPROBNP, CHEM8, LIPASE, CMETADD #### Unless otherwise noted, all testing performed by [place] [address] CLIA: [id number] Lithograph Operator: Maurice Coello M.D. GFR/1.73 sq M predicted among blacks MDRD vol rate/area (S/P/Bld) 38 mL/min/{1.73_m2} Low >60 [facility] Comment on above: Result Comment: Afri can Cuban GFR Calc Performed By: #### C BCWOD, PT, PTT, DDIMR, EDCTNI, NTPROBNP, CHEM8, LIPASE, CMETADD #### Unless otherwise noted, all testing performed by [address] [place] [address] CLIA: [id number] Lithograph Operator: Maurice Coello M.D. GFR/1.73 sq M predicted among non-blacks MDRD vol rate/area (S/P/Bld) 32 mL/min/{1.73_m2} Low >60 [facility] Comment on above: Result Comment: Non- [...] Unless otherwise noted, all testing performed by [place] [address] CLIA: [id number] Lithograph Operator: Maurice Coello M.D. Glucose mass conc 124 mg/dL High 70-99 [facility] Comment on above: Result Comment: This test result might be falsely depressed or falsely elevated on samples drawn from patients taking Sulfasalazine and Sulfapyridine. Venipuncture should occur prior to taking either of these drugs. Performed By: #### C BCWOD, PT, PTT, DDIMR, EDCTNI, NTPROBNP, CHEM8, LIPASE, CMETADD #### Unless otherwise noted, all testing performed by [place] [address] CLIA: [id number] Lithograph Operator: Maurice Coello M.D. Potassium molar conc 4.5 mmol/L Normal 3.5-5.1 [facility] Comment on above: Performed By: #### C BCWOD, PT, PTT, DDIMR, EDCTNI, NTPROBNP, CHEM8, LIPASE, CMETADD #### Unless otherwise noted, all testing performed by [place] [address] CLIA: [id number] Lithograph Operator: Maurice Coello M.D. Sodium molar conc 137 mmol/L Normal 135-145 [facility] Comment on above: Performed By: #### C BCWOD, PT, PTT, DDIMR, EDCTNI, NTPROBNP, CHEM8, LIPASE, CMETADD #### Unless otherwise noted, all testing performed by [place] [address] CLIA: [id number] Lithograph Operator: Maurice Coello M.D. Urea nitrogen mass conc 15 mg/dL Normal 8-25 [facility] Comment on above: Performed By: #### C BCWOD, PT, PTT, DDIMR, EDCTNI, NTPROBNP, CHEM8, LIPASE, CMETADD #### Unless otherwise noted, all testing performed by [place] [address] CLIA: [id number] Lithograph Operator: Maurice Coello M.D. CBC w/o Diffon 01-29-2018 Erythrocyte distribution width Ratio (RBC) 17.5 % High 10.0-14.4 [facility] Comment on above: Performed By: #### C BCWOD, PT, PTT, DDIMR, EDCTNI, NTPROBNP, CHEM8, LIPASE, CMETADD #### Unless otherwise noted, all testing performed by [place] [address] CLIA: [id number] Lithograph Operator: Maurice Coello M.D. Hematocrit Volume Fraction (Bld) 38.5 % Normal 34.4-44.8 [facility] Comment on above: Performed By: #### C BCWOD, PT, PTT, DDIMR, EDCTNI, NTPROBNP, CHEM8, LIPASE, CMETADD #### Unless otherwise noted, all testing performed by [place] [address] CLIA: [id number] Lithograph Operator: Maurice Coello M.D. Hemoglobin mass conc (Bld) 12.7 g/dL Normal 11.6-15.4 [facility] Comment on above: Performed By: #### C BCWOD, PT, PTT, DDIMR, EDCTNI, NTPROBNP, CHEM8, LIPASE, CMETADD #### Unless otherwise noted, all testing performed by [place] [phone] CLIA: [id number] Lithograph Operator: Maurice Coello M.D. MCH Entitic mass (RBC) 26.1 pg Low 27.9-33.9 [facility] Comment on above: Performed By: #### C BCWOD, PT, PTT, DDIMR, EDCTNI, NTPROBNP, CHEM8, LIPASE, CMETADD #### Unless otherwise noted, all testing performed by [place] [address] CLIA: [id number] Lithograph Operator: Maurice Coello M.D. MCHC mass conc (RBC) 32.9 g/dL Low 33.1-35.1 [facility] Comment on above: Performed By: #### C BCWOD, PT, PTT, DDIMR, EDCTNI, NTPROBNP, CHEM8, LIPASE, CMETADD #### Unless otherwise noted, all testing performed by [place] [address] CLIA: [id number] Lithograph Operator: Maurice Coello M.D. MCV Entitic volume (RBC) 79.4 fL Low 82.6-98.9 [facility] Comment on above: Performed By: #### C BCWOD, PT, PTT, DDIMR, EDCTNI, NTPROBNP, CHEM8, LIPASE, CMETADD #### Unless otherwise noted, all testing performed by [place] [address] CLIA: [id number] Lithograph Operator: Maurice Coello M.D. Platelet mean volume Entitic volume (Bld) 7.8 fL Normal 7.0-10.6 [facility] Comment on above: Performed By: #### C BCWOD, PT, PTT, DDIMR, EDCTNI, NTPROBNP, CHEM8, LIPASE, CMETADD #### Unless otherwise noted, all testing performed by [place] [address] CLIA: [id number] Lithograph Operator: Maurice Coello M.D. Platelets #/vol (Bld) 351 K/mcL Normal 162-402 [facility] Comment on above: Performed By: #### C BCWOD, PT, PTT, DDIMR, EDCTNI, NTPROBNP, CHEM8, LIPASE, CMETADD #### Unless otherwise noted, all testing performed by [place] [address] CLIA: [id number] Lithograph Operator: Maurice Coello M.D. RBC #/vol (Bld) 4.84 M/mcL Normal 3.7-5.0 [facility] Comment on above: Performed By: #### C BCWOD, PT, PTT, DDIMR, EDCTNI, NTPROBNP, CHEM8, LIPASE, CMETADD #### Unless otherwise noted, all testing performed by [place] [address] CLIA: [id number] Lithograph Operator: Maruice Coello M.D. WBC #/vol (Bld) 7.6 K/mcL Normal 3.4-10.6 [facility] Comment on above: Performed By: #### C BCWOD, PT, PTT, DDIMR, EDCTNI, NTPROBNP, CHEM8, LIPASE, CMETADD #### Unless otherwise noted, all testing performed by [place] [address] CLIA: [id number] Lithograph Operator: Maurice Coello M.D. CHEST (ONE VIEW ONLY)on 01-05 CHEST (ONE VIEW ONLY) Final Report Accession No: [id number] Performed: Jan 29 2018 6:55PM Examination: [...] SCHMITZ M.D. Trans: [email or web address] : cc: Normal [facility] CMET Add-On Testson 01-30-20 Albumin mass conc 3.7 g/dL Normal 3.2-5.2 [facility] Comment on above: Performed By: #### C BCWOD, PT, PTT, DDIMR, EDCTNI, NTPROBNP, CHEM8, LIPASE, CMETADD #### Unless otherwise noted, all testing performed by [place] [address] CLIA: [id number] Lithograph Operator: Maurice Coello M.D. ALP enzyme act/vol 107 U/L Normal 40-150 [facility] [place] [facility] Comment on above: Performed By: #### C BCWOD, PT, PTT, DDIMR, EDCTNI, NTPROBNP, CHEM8, LIPASE, CMETADD #### Unless otherwise noted, all testing performed by [place] [address] CLIA: [id number] Lithograph Operator: Maurice Coello M.D. ALT enzyme act/vol 29 U/L Normal 14-65 [facility] [place] [facility] Comment on above: Result Comment: This test result might be falsely depressed or falsely elevated on samples drawn from patients taking Sulfasalazine and Sulfapyridine. Venipuncture should occur prior to taking either of these drugs. Performed By: #### C BCWOD, PT, PTT, DDIMR, EDCTNI, NTPROBNP, CHEM8, LIPASE, CMETADD #### Unless otherwise noted, all testing performed by [place] [address] CLIA: [id number] Lithograph Operator: Maurice Coello M.D. AST enzyme act/vol 21 U/L Normal 0-45 [facility] [place] [facility] Comment on above: Result Comment: This test result might be falsely depressed or falsely elevated on samples drawn from patients taking Sulfasalazine and Sulfapyridine. Venipuncture should occur prior to taking either of these drugs. Performed By: #### C BCWOD, PT, PTT, DDIMR, EDCTNI, NTPROBNP, CHEM8, LIPASE, CMETADD #### Unless otherwise noted, all testing performed by [place] [address] CLIA: [id number] Lithograph Operator: Maurice oCello M.D. Bilirubin mass conc 0.2 mg/dL Low 0.3-1.2 [facility] Comment on above: Performed By: #### C BCWOD, PT, PTT, DDIMR, EDCTNI, NTPROBNP, CHEM8, LIPASE, CMETADD #### Unless otherwise noted, all testing performed by [place] [address] CLIA: [id number] Lithograph Operator: Maurice Coello M.D. Protein mass conc 8.2 g/dL High 6.0-8.0 [facility] Comment on above: Performed By: #### C BCWOD, PT, PTT, DDIMR, EDCTNI, NTPROBNP, CHEM8, LIPASE, CMETADD #### Unless otherwise noted, all testing performed by [place] [address] CLIA: [id number] Lithograph Operator: Maurice Coello M.D. Cardiac Troponin-Ion 018 Troponin I.cardiac mass conc ng/mL Normal < 45 [facility] Comment on above: Result Comment: Elev ation [...] Unless otherwise noted, all testing performed by [place] [address] CLIA: [id number] Lithograph Operator: Maurice Coello M.D. D-Dimeron 01-29-2018 D-Dimer 1.88 mcg/ml (FEU) High < .5 [facility] Comment on above: Result Comment: This test is intended for use in conjunction with a clinical pretest probability (PTP) assessment model to exclude pulmonary embolism (PE) and deep vein thrombosis (DVT) in outpatients suspected of PE or DVT. Performed By: #### C BCWOD, PT, PTT, DDIMR, EDCTNI, NTPROBNP, CHEM8, LIPASE, CMETADD #### Unless otherwise noted, all testing performed by [place] [address] CLIA: [id number] Lithograph Operator: Maurice Coello M.D. Lactic Acidon 01-29-2018 Lactate molar conc 1.3 mmol/L Normal 0.6-2.0 [facility] Comment on above: Performed By: #### C BCWOD, PT, PTT, DDIMR, EDCTNI, NTPROBNP, CHEM8, LIPASE, CMETADD #### Unless otherwise noted, all testing performed by [place] [address] CLIA: [id number] Lithograph Operator: Maurice Coello M.D. Lipaseon 01-29-2018 Lipase enzyme act/vol 250 U/L Normal 73-393 [facility] Comment on above: Performed By: #### C BCWOD, PT, PTT, DDIMR, EDCTNI, NTPROBNP, CHEM8, LIPASE, CMETADD #### Unless otherwise noted, all testing performed by [place] [address] CLIA: [id number] Lithograph Operator: Maurice Coello M.D. NT-Pro BNP, Serumon 01-30-20 18 Natriuretic peptide B mass conc (Bld) 97 pg/mL Normal 0-125 [facility] Comment on above: Performed By: #### C BCWOD, PT, PTT, DDIMR, EDCTNI, NTPROBNP, CHEM8, LIPASE, CMETADD #### Unless otherwise noted, all testing performed by [place] [address] CLIA: [id number] Lithograph Operator: Maurice Coello M.D. Partial Thromboplastin Timeo n 01-29-2018 aPTT Coag time (Bld) 31 s Normal 23.0-34.0 [facility] Comment on above: Result Comment: Uday silva therapeutic range for PTT is 68-104 sec. Performed By: #### C BCWOD, PT, PTT, DDIMR, EDCTNI, NTPROBNP, CHEM8, LIPASE, CMETADD #### Unless otherwise noted, all testing performed by [place] [address] CLIA: [id number] Lithograph Operator: Maurice Coello M.D. Protimeon 01-29-2018 INR Coag RelTime (PPP) 0.93 {INR} Normal [facility] Comment on above: Result Comment: The [employer] recommended therapeutic range for Warfarin (Coumadin) therapy goals: PROPHYLAXIS/TREATMENT of: INR Venous Thrombosis, Pulmonary Embolism 2.0-3.0 Prevention of VTE (Orthopedic Surgery) 2.0-3.0 Atrial Fibrillation 2.0-3.0 Myocardial Infarction 2.0-3.0 Mechanical Prosthetic Heart Valves (Aortic position) 2.0-3.0 Mechanical Prosthetic Heart Valves (Mitral Position) 2.5-3.5 [employer] evidence-based clinical practice guidelines. CHEST. 2012 (9th ed) Performed By: #### C BCWOD, PT, PTT, DDIMR, EDCTNI, NTPROBNP, CHEM8, LIPASE, CMETADD #### Unless otherwise noted, all testing performed by [place] [address] CLIA: [id number] Lithograph Operator: Maurice Coello M.D. Prothrombin time (PT) Coag time (PPP) 12.1 s Normal 11.8-14.3 [facility] Comment on above: Performed By: #### C BCWOD, PT, PTT, DDIMR, EDCTNI, NTPROBNP, CHEM8, LIPASE, CMETADD #### Unless otherwise noted, all testing performed by [facility] [place] [id number] CLIA: [id number] Lithograph Operator: Maurice Coello M.D. TSHon 01-12-2018 Interpretation and review of laboratory results Abnormal Invalid Interpretation Code [facility] Thyroid stimulating hormone (TSH) 24.40 uIU/mL High 0.320 - 5.000 [facility] Thyroxine (T4) free 1.0 ng/dL Invalid Interpretation Code 0.76 - 1.79 ng/dL [facility] CBC with DIFFERENTIALon 10-07 Basophils Auto #/vol (Bld) 0.04 10*3/uL Normal <=0.70 [facility] Comment on above: Performed By: #### 5 7021-8 ####[place] [address] Director - Gail Allison [id number] Basophils/100 WBC Auto (Bld) 0.3 % Normal <=2.0 [facility] Comment on above: Performed By: #### 5 7021-8 ####[place] [address] Director - Gail IrvingJADIEL [id number] Eosinophils 0.04 10*3/uL Normal <=0.70 [facility] Comment on above: Performed By: #### 5 7021-8 ####[place] [address] Director - Gail Allison [id number] Eosinophils/100 leukocytes 0.3 % Normal <=10.0 [facility] Comment on above: Performed By: #### 5 7021-8 ####[place] [address] [facility].[address] Director - Gail Allison [id number] Erythrocyte distribution width Auto Entitic volume (RBC) 46.7 fL High 36.4-46.3 [facility] Comment on above: Performed By: #### 5 7021-8 ####[facility] Director - Gailpaulo MadirgalrellCLIA [id number] Erythrocytes (RBC) 4.90 10*6/uL Normal 4.00-6.30 [facility] Comment on above: Performed By: #### 5 7021-8 ####[facility] Director - Gail RohanrellCLIA [id number] Hematocrit (HCT) 38.1 % Normal 37.0-47.0 [facility] Comment on above: Performed By: #### 5 7021-8 ####[facility] Director - Gailpaulo Allison [id number] Hemoglobin mass conc (Bld) 12.2 g/dL Normal 12.0-16.0 [facility] Comment on above: Performed By: #### 5 7021-8 ####[facility] Director - Gail FarrellCLIA [id number] Immature granulocytes #/vol (Bld) 0.03 10*3/uL Normal <=0.10 [facility] Comment on above: Performed By: #### 5 7021-8 ####[facility] Director - Gail FarrellCLIA [id number] Immature granulocytes/100 WBC (Bld) 0.30 % Normal <=1.50 [facility] Comment on above: Performed By: #### 5 7021-8 ####[facility] Director - Gail FarrellCLIA [id number] Lymphocytes 1.42 10*3/uL Normal 1.20-3.40 [facility] Comment on above: Performed By: #### 5 7021-8 ####[facility] Director - Gail FarrellCLIA [id number] Lymphocytes/100 leukocytes 11.9 % Low 20.0-40.0 [facility] Comment on above: Performed By: #### 5 7021-8 ####[facility] Director - Gail Allison [id number] MCH 24.9 pg Low 27.0-31.0 [facility] Comment on above: Performed By: #### 5 7021-8 ####[facility] Director - Gail Allison [id number] MCHC mass conc (RBC) 32.0 g/dL Normal 32.0-36.0 [facility] Comment on above: Performed By: #### 5 7021-8 ####[facility] Director - Gail Allison [id number] MCV 77.8 fL Low 80.0-100.0 [facility] Comment on above: Performed By: #### 5 7021-8 ####[facility] Director - Gail Allison [id number] Monocytes 0.53 10*3/uL Normal 0.10-0.60 [facility] Comment on above: Performed By: #### 5 7021-8 ####[facility] Director - Gail Allison [id number] Monocytes/100 leukocytes 4.5 % Normal <=8.0 [facility] Comment on above: Performed By: #### 5 7021-8 ####[facility] Director - Gail Allison [id number] Neutrophils 9.84 10*3/uL High 1.40-6.50 [facility] Comment on above: Performed By: #### 5 7021-8 ####[facility] Director - Gail Allison [id number] Neutrophils/100 WBC Auto (Bld) 82.7 % High 50.0-70.0 [facility] Comment on above: Performed By: #### 5 7021-8 ####[facility] Director - Gail Allison [id number] Nucleated erythrocytes 0.00 10*3/uL Normal <=0.10 [facility] Comment on above: Performed By: #### 5 7021-8 ####[facility] Director - Gail Allison [id number] Platelet mean volume (PMV) 10.2 fL Normal 9.0-13.0 [facility] Comment on above: Performed By: #### 5 7021-8 ####[facility] Director - Gail Allison [id number] Platelets 269 10*3/uL Normal 130-400 [facility] Comment on above: Performed By: #### 5 7021-8 ####[facility] Director - Gail Allison [id number] WBC (Leukocytes) 11.90 10*3/uL High 4.80-10.80 [facility] Comment on above: Performed By: #### 5 7021-8 ####[facility] Director - Gail Allison [id number] [facility] Creatine kinase (CK) 617 U/L High 21-215 [facility] Comment on above: Performed By: #### 2 157-6, 12455-4, 3040-3 ####[facility] Director - Gail Allison [id number] COMPREHENSIVE METABOLIC PANE Jett 11-02-2017 Alanine aminotransferase (ALT) 31 U/L Normal 14-59 [facility] Comment on above: Performed By: #### 2 157-6, 06462-1, 0-3 ####[facility], [place] [address]Lwkqflk Director - Gail Allison [id number] Albumin 3.7 g/dL Normal 3.4-5.0 [facility] Comment on above: Performed By: #### 2 157-6, 47134-8, 0-3 ####[facility] Director - Gail Allison [id number] Alkaline phosphatase (ALP) 109 U/L Normal 50-136 [facility] Comment on above: Performed By: #### 2 157-6, 07042-5, 0-3 ####[facility] Director - Gail Allison [id number] Anion gap 7.0 mmol/L Normal <=15.0 [facility] Comment on above: Performed By: #### 2 157-6, 10792-7, 0-3 ####[facility] Director - Gail Allison [id number] Aspartate aminotransferase (AST) 34 U/L Normal 15-37 [facility] Comment on above: Performed By: #### 2 157-6, 12285-6, 0-3 ####[facility] Director - Gail Allison [id number] Bilirubin (total) 0.3 mg/dL Normal 0.2-1.0 [facility] Comment on above: Performed By: #### 2 157-6, 80243-2, 0-3 ####[facility], [place] [address]Qsxtpfr Director - Gail Allison [id number] Calcium 9.1 mg/dL Normal 8.5-10.1 [facility] Comment on above: Performed By: #### 2 157-6, 11344-4, 3040-3 ####[facility] Director - Gail Allison [id number] Chloride 102 mmol/L Normal 98-107 [facility] Comment on above: Performed By: #### 2 157-6, 67154-7, 3040-3 ####[facility] Director - Gail ThompsonBAMBI [id number] CO2 27 mmol/L Normal 21-32 [facility] Comment on above: Performed By: #### 2 157-6, 28342-1, 3040-3 ####[facility] [facility] [id number] Creatinine 1.34 mg/dL High 0.51-0.95 [facility] Comment on above: Performed By: #### 2 157-6, 03499-1, 3040-3 ####[facility] Gail [facility]SOU[facility] [id number] eGFR (MDRD) 40 mL/min/{1.73_m2} Low >=59 [facility] Comment on above: Performed By: #### 2 157-6, 83856-4, 3040-3 ####[facility] JaySOUTHWE[facility] [id number] eGFR (non-black) GLOMERULAR FILTRATIO N RATE INTERPRETATION~The [...] months, with or without kidney damage.~ Normal [facility] Comment on above: Performed By: #### 2 157-6, 13723-2, 3040-3 ####[facility] Director - [place] JayCHRISTOPHER [place] [id number] Glucose mass conc 115 mg/dL High 74-106 [facility] Comment on above: Performed By: #### 2 157-6, 44026-2, 0-3 ####[facility] Director - Gail KebedeMI [id number] Potassium molar conc 4.3 mmol/L Normal 3.5-5.1 [facility] Comment on above: Performed By: #### 2 157-6, 12370-0, 0-3 ####[facility] Director - Gail Allison [id number] Protein 7.7 g/dL Normal 6.4-8.2 [facility] Comment on above: Performed By: #### 2 157-6, 65142-1, 0-3 ####[facility] Director - Gail Allison [id number] Sodium 136 mmol/L Normal 136-145 [facility] Comment on above: Performed By: #### 2 157-6, 57348-8, 0-3 ####[facility] Director - Gail YandyMI [id number] Urea nitrogen 17 mg/dL Normal 7-17 [facility] Comment on above: Performed By: #### 2 157-6, 19866-0, 0-3 ####[facility], [place] [address]Oxiwxny Director - Gail Allison [id number] LACTATEon 11-02-2017 Lactate 0.6 mmol/L Normal 0.4-2.0 [facility] Comment on above: Performed By: #### 2 524-7 ####[facility], [place] [address]Sycqama Director - Gail Allison [id number] LIPASEon 11-02-2017 Lipase 183 U/L Normal 73-393 [facility] Comment on above: Performed By: #### 2 157-6, 74086-9, 3040-3 ####[place] [address], [place] [address]Xjldxdi Director - Gail Allison [id number] PT with INRon 11-02-2017 INR Coag RelTime (Bld) INR REFERENCE RAN GE INTERPRETATION Patients on Coumadin 2.0 - 3.0 Patients with mechanical heart valves 2.5 - 3.5 Normal [facility] Comment on above: Performed By: #### 5 902-2, 36522-6 ####[facility] Director - Gail Allison [id number] INR Coag RelTime (PPP) 1.0 {INR} Normal 0.8-1.1 [facility] Comment on above: Performed By: #### 5 902-2, 23533-8 ####[facility], [place] [address]Tjveukf Director - Gail Allison [id number] Prothrombin time (PT) Coag time (PPP) 10.6 Secs Normal 9.3-11.5 [facility] Comment on above: Performed By: #### 5 902-2, 84429-4 ####[facility], [place] [address]Bsxiouu Director - Gail Allison [id number] PTTon 11-02-2017 aPTT 27.6 Sec Normal 23.5-31.3 [facility] Comment on above: Performed By: #### 5 902-2, 09634-4 ####[facility] [address]Medical Director - Gail Allison [id number] BUN and Creatinineon 017 Creatinine 1.53 mg/dL High 0.4 - 1.1 mg/dL [facility] eGFR (black) 42 mL/min/{1.73_m2} Low >60 [facility] eGFR (non-black) 35 mL/min/{1.73_m2} Low >60 [facility] Interpretation and review of laboratory results Abnormal Invalid Interpretation Code [facility] Urea nitrogen 15 mg/dL Invalid Interpretation Code 8 - 25 mg/dL [facility] Calcium Levelon 07-05-2017 Calcium 9.0 mg/dL Invalid Interpretation Code 8.4 - 10.2 mg/dL [facility] Electrolyte Panelon 07-05-20 17 Chloride 104 mmol/L Invalid Interpretation Code 98 - 108 mmol/L [facility] CO2 23 mmol/L Invalid Interpretation Code 21 - 32 mmol/L [facility] Potassium 4.7 mmol/L Invalid Interpretation Code 3.5 - 5.1 mmol/L [facility] Sodium 136 mmol/L Invalid Interpretation Code 135 - 145 mmol/L [facility] Hemoglobin and Hematocriton 07-05-2017 Hematocrit (HCT) 37.0 % Invalid Interpretation Code 34.4 - 44.8 % [facility] Hemoglobin (HGB) 12.1 g/dL Invalid Interpretation Code 11.6 - 15.4 g/dL [facility] Parathyroid Hormoneon 2016 Parathyroid Hormone 90.3 pg/mL High 14.1 - 7 2 pg/mL [facility] Protein Panel, Urineon 07-05 Creatinine, Urine Random 64.80 mg/dL Invalid Interpretation Code [facility] Interpretation and review of laboratory results Abnormal Invalid Interpretation Code [facility] Protein, Urine Random 15.5 mg/dL Invalid Interpretation Code [facility] Protein/Creatinine Ratio, Urine 0.24 1 High 0.0 - 0.2 [facility] TSHon 07-05-2017 Thyroid stimulating hormone (TSH) 0.90 uIU/mL Invalid Interpretation Code 0.320 - 5.000 [facility] Vitamin D, Total, 25-OHon Vitamin D, 25-Hydroxy, Total 26.6 ng/mL Invalid Interpretation Code [facility] Vital Signs Date Time Vital Sign Value Performing Clinician Facility 07-23-2025 13:10-0400 Body height 162 cm Emmett Hyman MD Work Phone: [facility] 07-23-2025 13:10-0400 Body mass index (BMI) [Ratio] 37.95 kg/m2 Emmett Hyamn MD Work Phone: [facility] 07-23-2025 13:10-0400 Body weight 99.6 kg Emmett Hyman MD Work Phone: [facility] 07-23-2025 13:10-0400 Diastolic blood pressure 78 mm[Hg] Emmett Hyman MD Work Phone: [facility] 07-23-2025 13:10-0400 Heart rate 61 /min Emmett Hyman MD Work Phone: [facility] 07-23-2025 13:10-0400 Systolic blood pressure 129 mm[Hg] Emmett Hyman MD Work Phone: [facility] 07-20-2025 10:07-0400 Diastolic blood pressure 55 mm[Hg] Dr. Jennifer Gordon MD Work Phone: [facility] 07-20-2025 10:07-0400 Systolic blood pressure 129 mm[Hg] Dr. Jennifer Gordon MD Work Phone: [facility] 07-20-2025 08:12-0400 Heart rate 71 /min Dr. Jennifer Gordon MD Work Phone: [facility] 07-20-2025 08:00-0400 Body temperature 98 [degF] Dr. Jennifer Gordon MD Work Phone: [facility] 07-20-2025 08:00-0400 Inhaled oxygen flow rate 2 L/min Dr. Jennifer Gordon MD Work Phone: [facility] 07-20-2025 08:00-0400 Respiratory rate 16 /min Dr. Jennifer Gordon MD Work Phone: [facility] 07-20-2025 08:00-0400 SaO2% (BldA) [Mass fraction] 96 % Dr. Jennifer Gordon MD Work Phone: [facility] 07-20-2025 05:31-0400 Body mass index (BMI) [Ratio] 36.7 kg/m2 Dr. Jennifer Gordon MD Work Phone: [facility] 07-20-2025 05:31-0400 Body weight 100.[address] Jennifer Gordon MD Work Phone: [facility] 07-18-2025 10:59-0400 Body height 165.[address] Jennifer Gordon MD Work Phone: [facility] 07-17-2025 23:08-0400 Body temperature 98.1 [degF] Dr. Jennifer Gordon MD Work Phone: [facility] 07-17-2025 23:08-0400 Diastolic blood pressure 91 mm[Hg] Dr. Jennifer Gordon MD Work Phone: [facility] 07-17-2025 23:08-0400 Heart rate 69 /min Dr. Jennifer Gordon MD Work Phone: [facility] 07-17-2025 23:08-0400 Respiratory rate 18 /min Dr. Jennifer Gordon MD Work Phone: [facility] 07-17-2025 23:08-0400 SaO2% (BldA) [Mass fraction] 97 % Dr. Jennifer Gordon MD Work Phone: [facility] 07-17-2025 23:08-0400 Systolic blood pressure 182 mm[Hg] Dr. Jennifer Gordon MD Work Phone: [facility] 07-17-2025 21:00-0400 Inhaled oxygen flow rate 4 L/min Dr. Jennifer Gordon MD Work Phone: [facility] 07-17-2025 19:06-0400 Body height 165.[address] Jennifer Gordon MD Work Phone: [facility] 07-17-2025 19:06-0400 Body mass index (BMI) [Ratio] 37.3 kg/m2 Dr. Jennifer Gordon MD Work Phone: [facility] 07-17-2025 19:06-0400 Body weight 101.[address] Jennifer Gordon MD Work Phone: [facility] 06-26-2025 14:03-0400 Body height 165.[address] Jennifer Gordon MD Work Phone: [facility] 06-26-2025 14:03-0400 Body mass index (BMI) [Ratio] 35.9 kg/m2 Dr. Jennifer Gordon MD Work Phone: [facility] 06-26-2025 14:03-0400 Body temperature 98 [degF] Dr. Jennifer Gordon MD Work Phone: [facility] 06-26-2025 14:03-0400 Body weight 97.[address] Jennifer Gordon MD Work Phone: [facility] 06-26-2025 14:03-0400 Diastolic blood pressure 68 mm[Hg] Dr. Jennifer Gordon MD Work Phone: [facility] 06-26-2025 14:03-0400 Heart rate 103 /min Dr. Jennifer Gordon MD Work Phone: [facility] 06-26-2025 14:03-0400 Respiratory rate 18 /min Dr. Jennifer Gordon MD Work Phone: [facility] 06-26-2025 14:03-0400 SaO2% (BldA) [Mass fraction] 97 % Dr. Jennifer Gordon MD Work Phone: [facility] 06-26-2025 14:03-0400 Systolic blood pressure 142 mm[Hg] Dr. Jennifer Gordon MD Work Phone: [facility] 06-17-2025 08:29-0400 Body height 165.[address] Jennifer Gordon MD Work Phone: [facility] 06-17-2025 08:29-0400 Body mass index (BMI) [Ratio] 36.6 kg/m2 Dr. Jennifer Gordon MD Work Phone: [facility] 06-17-2025 08:29-0400 Body temperature 97.1 [degF] Dr. Jennifer Gordon MD Work Phone: [facility] 06-17-2025 08:29-0400 Body weight 99.[address] Jennifer Gordon MD Work Phone: [facility] 06-17-2025 08:29-0400 Diastolic blood pressure 65 mm[Hg] Dr. Jennifer Gordon MD Work Phone: [facility] 06-17-2025 08:29-0400 Heart rate 75 /min Dr. Jennifer Gordon MD Work Phone: [facility] 06-17-2025 08:29-0400 Inhaled oxygen flow rate 4 L/min Dr. Jennifer Gordon MD Work Phone: [facility] 06-17-2025 08:29-0400 Respiratory rate 18 /min Dr. Jennifer Gordon MD Work Phone: [facility] 06-17-2025 08:29-0400 SaO2% (BldA) [Mass fraction] 97 % Dr. Jennifer Gordon MD Work Phone: [facility] 06-17-2025 08:29-0400 Systolic blood pressure 136 mm[Hg] Dr. Jennifer Gordon MD Work Phone: [facility] 04-30-2025 10:06-0400 Body height 165.1 cm Cb Boudreaux MD Work Phone: [facility] 04-30-2025 10:06-0400 Body mass index (BMI) [Ratio] 36.11 kg/m2 Cb Boudreaux MD Work Phone: [facility] 04-30-2025 10:06-0400 Body weight 98.43 kg Cb Boudreaux MD Work Phone: [facility] 04-30-2025 10:06-0400 Diastolic blood pressure 93 mm[Hg] Cb Boudreaux MD Work Phone: [facility] 04-30-2025 10:06-0400 Heart rate 64 /min Cb Boudreaux MD Work Phone: [facility] 04-30-2025 10:06-0400 SaO2% (BldA) [Mass fraction] 94 % Cb Boudreaux MD Work Phone: [facility] Comment on above: 2 M 04-30-2025 10:06-0400 Systolic blood pressure 145 mm[Hg] Cb Boudreaux MD Work Phone: [facility] 2025 13:25-0400 Body height 165.[address] Jennifer Gordon MD Work Phone: [facility] 2025 13:25-0400 Body mass index (BMI) [Ratio] 35.6 kg/m2 Dr. Jennifer Gordon MD Work Phone: [facility] 2025 13:25-0400 Body temperature 98.6 [degF] Dr. Jennifer Gordon MD Work Phone: [facility] 2025 13:25-0400 Body weight 97.[address] Jennifer Gordon MD Work Phone: [facility] 2025 13:25-0400 Diastolic blood pressure 84 mm[Hg] Dr. Jennifer Gordon MD Work Phone: [facility] 2025 13:25-0400 Heart rate 71 /min Dr. Jennifer Gordon MD Work Phone: [facility] 2025 13:25-0400 Inhaled oxygen flow rate 4 L/min Dr. Jennifer Gordon MD Work Phone: [facility] 2025 13:25-0400 Respiratory rate 20 /min Dr. Jennifer Gordon MD Work Phone: [facility] 2025 13:25-0400 SaO2% (BldA) [Mass fraction] 99 % Dr. Jennifer Gordon MD Work Phone: [facility] 2025 13:25-0400 Systolic blood pressure 160 mm[Hg] Dr. Jennifer Gordon MD Work Phone: [facility] 04-04-2025 14:41-0400 Heart rate 97 /min Dr. Jennifer Gordon MD Work Phone: [facility] 04-04-2025 14:41-0400 Inhaled oxygen flow rate 4 L/min Dr. Jennifer Gordon MD Work Phone: [facility] 04-04-2025 14:41-0400 SaO2% (BldA) [Mass fraction] 96 % Dr. Jennifer Gordon MD Work Phone: [facility] 04-04-2025 08:16-0400 Body mass index (BMI) [Ratio] 34.9 kg/m2 Dr. Jennifer Gordon MD Work Phone: [facility] 04-04-2025 08:16-0400 Body temperature 97.4 [degF] Dr. Jennifer Gordon MD Work Phone: [facility] 04-04-2025 08:16-0400 Body weight 95.[address] Jennifer Gordon MD Work Phone: [facility] 04-04-2025 08:16-0400 Diastolic blood pressure 82 mm[Hg] Dr. Jennifer Gordon MD Work Phone: [facility] 04-04-2025 08:16-0400 Heart rate 68 /min Dr. Jennifer Gordon MD Work Phone: [facility] 04-04-2025 08:16-0400 Inhaled oxygen flow rate 4 L/min Dr. Jennifer Gordon MD Work Phone: [facility] 04-04-2025 08:16-0400 Respiratory rate 20 /min Dr. Jennifer Gordon MD Work Phone: [facility] 04-04-2025 08:16-0400 SaO2% (BldA) [Mass fraction] 99 % Dr. Jennifer Gordon MD Work Phone: [facility] 04-04-2025 08:16-0400 Systolic blood pressure 165 mm[Hg] Dr. Jennifer Gordon MD Work Phone: [facility] 03-27-2025 11:34-0400 Body height 165.[address] Jennifer Gordon MD Work Phone: [facility] 03-27-2025 11:34-0400 Body mass index (BMI) [Ratio] 36.1 kg/m2 Dr. Jennifer Gordon MD Work Phone: [facility] 03-27-2025 11:34-0400 Body temperature 98.2 [degF] Dr. Jennifer Gordon MD Work Phone: [facility] 03-27-2025 11:34-0400 Body weight 98.[address] Jennifer Gordon MD Work Phone: [facility] 03-27-2025 11:34-0400 Diastolic blood pressure 79 mm[Hg] Dr. Jennifer Gordon MD Work Phone: [facility] 03-27-2025 11:34-0400 Heart rate 96 /min Dr. Jennifer Gordon MD Work Phone: [facility] 03-27-2025 11:34-0400 Inhaled oxygen flow rate 4 L/min Dr. Jennifer Gordon MD Work Phone: [facility] 03-27-2025 11:34-0400 Respiratory rate 17 /min Dr. Jennifer Gordon MD Work Phone: [facility] 03-27-2025 11:34-0400 SaO2% (BldA) [Mass fraction] 95 % Dr. Jennifer Gordon MD Work Phone: [facility] 03-27-2025 11:34-0400 Systolic blood pressure 169 mm[Hg] Dr. Jennifer Gordon MD Work Phone: [facility] 02-18-2025 11:31-0400 Body temperature 98.1 [degF] Jossie Alcazar MD Work Phone: [facility] 02-18-2025 11:31-0400 Diastolic blood pressure 73 mm[Hg] Jossie Alcazar MD Work Phone: [facility] 02-18-2025 11:31-0400 Heart rate 61 /min Jossie Alcazar MD Work Phone: [facility] 02-18-2025 11:31-0400 Respiratory rate 18 /min Jossie Alcazar MD Work Phone: [facility] 02-18-2025 11:31-0400 SaO2% (BldA) [Mass fraction] 97 % Jossie Alcazar MD Work Phone: [facility] 02-18-2025 11:31-0400 Systolic blood pressure 138 mm[Hg] Jossie Alcazar MD Work Phone: [facility] 02-13-2025 15:45-0400 Body height 165.1 cm Bahzat Inge MD Work Phone: [facility] 02-13-2025 15:45-0400 Body mass index (BMI) [Ratio] 35.94 kg/m2 Jossie Alcazar MD Work Phone: [facility] 02-13-2025 15:45-0400 Body weight 97.98 kg Jossie Alcazar MD Work Phone: [facility] 01-06-2025 10:18-0500 Body height 165.[address] Jennifer Gordon MD Work Phone: [facility] 01-06-2025 10:18-0500 Body mass index (BMI) [Ratio] 37.5 kg/m2 Dr. Jennifer Gordon MD Work Phone: [facility] 01-06-2025 10:18-0500 Body weight 102.[address] Jennifer Gordon MD Work Phone: [facility] 01-01-2025 16:41-0500 Body temperature 98 [degF] Dr. Jennifer Gordon MD Work Phone: [facility] 01-01-2025 16:41-0500 Diastolic blood pressure 79 mm[Hg] Dr. Jennifer Gordon MD Work Phone: [facility] 01-01-2025 16:41-0500 Heart rate 85 /min Dr. Jennifer Gordon MD Work Phone: [facility] 01-01-2025 16:41-0500 Respiratory rate 19 /min Dr. Jennifer Gordon MD Work Phone: [facility] 01-01-2025 16:41-0500 SaO2% (BldA) [Mass fraction] 94 % Dr. Jennifer Gordon MD Work Phone: [facility] 01-01-2025 16:41-0500 Systolic blood pressure 128 mm[Hg] Dr. Jennifer Gordon MD Work Phone: [facility] 01-01-2025 15:33-0500 Body mass index (BMI) [Ratio] 36.6 kg/m2 Dr. Jennifer Gordon MD Work Phone: [facility] 01-01-2025 15:33-0500 Body weight 99.[address] Jennifer Gordon MD Work Phone: [facility] 12-26-2024 11:24-0500 Body mass index (BMI) [Ratio] 38.1 kg/m2 Dr. Jennifer Gordon MD Work Phone: [facility] 12-26-2024 11:24-0500 Body temperature 98.2 [degF] Dr. Jennifer Gordon MD Work Phone: [facility] 12-26-2024 11:24-0500 Body weight 103.[address] Jennifer Gordon MD Work Phone: [facility] 12-26-2024 11:24-0500 Diastolic blood pressure 84 mm[Hg] Dr. Jennifer Gordon MD Work Phone: [facility] 12-26-2024 11:24-0500 Heart rate 82 /min Dr. Jennifer Gordon MD Work Phone: [facility] 12-26-2024 11:24-0500 Inhaled oxygen flow rate 4 L/min Dr. Jennifer Gordon MD Work Phone: [facility] 12-26-2024 11:24-0500 Respiratory rate 17 /min Dr. Jennifer Gordon MD Work Phone: [facility] 12-26-2024 11:24-0500 SaO2% (BldA) [Mass fraction] 95 % Dr. Jennifer Gordon MD Work Phone: [facility] 12-26-2024 11:24-0500 Systolic blood pressure 158 mm[Hg] Dr. Jennifer Gordon MD Work Phone: [facility] 10-16-2024 13:23-0500 Body mass index (BMI) [Ratio] 38.2 kg/m2 Dr. Jennifer Gordon MD Work Phone: [facility] 10-16-2024 13:23-0500 Body temperature 97.1 [degF] Dr. Jennifer Gordon MD Work Phone: [facility] 10-16-2024 13:23-0500 Body weight 104.[address] Jennifer Gordon MD Work Phone: [facility] 10-16-2024 13:23-0500 Diastolic blood pressure 78 mm[Hg] Dr. Jennifer Gordon MD Work Phone: [facility] 10-16-2024 13:23-0500 Heart rate 64 /min Dr. Jennifer Gordon MD Work Phone: [facility] 10-16-2024 13:23-0500 Inhaled oxygen flow rate 4 L/min Dr. Jennifer Gordon MD Work Phone: [facility] 10-16-2024 13:23-0500 Respiratory rate 20 /min Dr. Jennifer Gordon MD Work Phone: [facility] 10-16-2024 13:23-0500 SaO2% (BldA) [Mass fraction] 99 % Dr. Jennifer Gordon MD Work Phone: [facility] 10-16-2024 13:23-0500 Systolic blood pressure 122 mm[Hg] Dr. Jennifer Gordon MD Work Phone: [facility] 09-25-2024 08:12-0500 Body temperature 98.2 [degF] Jossie Alcazar MD Work Phone: [facility] 09-25-2024 08:12-0500 Diastolic blood pressure 80 mm[Hg] Jossie Alcazar MD Work Phone: [facility] 09-25-2024 08:12-0500 Heart rate 74 /min Jossie Alcazar MD Work Phone: [facility] 09-25-2024 08:12-0500 Respiratory rate 17 /min Jossie Alcazar MD Work Phone: [facility] 09-25-2024 08:12-0500 SaO2% (BldA) [Mass fraction] 96 % Jossie Alcazar MD Work Phone: [facility] 09-25-2024 08:12-0500 Systolic blood pressure 142 mm[Hg] Jossie Alcazar MD Work Phone: [facility] 09-25-2024 06:31-0500 Body mass index (BMI) [Ratio] 37.79 kg/m2 Jossie Alcazar MD Work Phone: [facility] 09-25-2024 06:31-0500 Body weight 103 kg Jossie Alcazar MD Work Phone: [facility] 09-21-2024 23:21-0500 Body height 165.1 cm Jossie Alcazar MD Work Phone: [facility] 09-18-2024 13:00-0500 Body height 165.1 cm Cb Boudreaux MD Work Phone: [facility] 09-18-2024 13:00-0500 Body mass index (BMI) [Ratio] 39.44 kg/m2 Cb Boudreaux MD Work Phone: [facility] 09-18-2024 13:00-0500 Body weight 107.5 kg Cb Boudreaux MD Work Phone: [facility] 09-18-2024 13:00-0500 Diastolic blood pressure 80 mm[Hg] Cb Boudreaux MD Work Phone: [facility] 09-18-2024 13:00-0500 Heart rate 70 /min Cb Boudreaux MD Work Phone: [facility] 09-18-2024 13:00-0500 SaO2% (BldA) [Mass fraction] 98 % Cb Boudreaux MD Work Phone: [facility] Comment on above: 4 LPM 09-18-2024 13:00-0500 Systolic blood pressure 135 mm[Hg] Cb Boudreaux MD Work Phone: [facility] 09-03-2024 16:01-0400 Diastolic blood pressure 78 mm[Hg] Ramírez Cunningham MD Work Phone: [facility] 09-03-2024 16:01-0400 Heart rate 84 /min Ramírez Cunningham MD Work Phone: [facility] 09-03-2024 16:01-0400 SaO2% (BldA) [Mass fraction] 95 % Ramírez Cunningham MD Work Phone: [facility] 09-03-2024 16:01-0400 Systolic blood pressure 145 mm[Hg] Ramírez Cunningham MD Work Phone: [facility] 09-03-2024 11:16-0400 Body temperature 97.81 [degF] Ramírez Cunningham MD Work Phone: [facility] 09-03-2024 11:00-0400 Respiratory rate 16 /min Ramírez Cunningham MD Work Phone: [facility] 09-02-2024 18:27-0400 Body height 165.1 cm Ramírez Cunningham MD Work Phone: [facility] 09-02-2024 18:27-0400 Body mass index (BMI) [Ratio] 39.44 kg/m2 Ramírez Cunningham MD Work Phone: [facility] 09-02-2024 18:27-0400 Body weight 107.5 kg Ramírez Cunningham MD Work Phone: [facility] 09-02-2024 14:44-0400 SaO2% (BldA) [Mass fraction] 97.3 % Ramírez Cunningham MD Work Phone: [facility] 02-29-2024 14:06-0400 Body height 165.[address] Jennifer Gordon Work Phone: [facility] 02-29-2024 14:06-0400 Body mass index (BMI) [Ratio] 41.4 kg/m2 Dr. Jennifer Gordon Work Phone: [facility] 02-29-2024 14:06-0400 Body temperature 97.7 [degF] Dr. Jennifer Gordon Work Phone: [facility] 02-29-2024 14:06-0400 Body weight [address] Jennifer Gordon Work Phone: [facility] 02-29-2024 14:06-0400 Diastolic blood pressure 78 mm[Hg] Dr. Jennifer Gordon Work Phone: [facility] 02-29-2024 14:06-0400 Heart rate 102 /min Dr. Jennifer Gordon Work Phone: [facility] 02-29-2024 14:06-0400 Respiratory rate 20 /min Dr. Jennifer Gordon Work Phone: [facility] 02-29-2024 14:06-0400 SaO2% (BldA) [Mass fraction] 96 % Dr. Jennifer Gordon Work Phone: [facility] 02-29-2024 14:06-0400 Systolic blood pressure 128 mm[Hg] Dr. Jennifer Gordon Work Phone: [facility] 01-15-2024 07:18-0400 Body mass index (BMI) [Ratio] 40.7 kg/m2 Dr. Jennifer Gordon Work Phone: [facility] 01-15-2024 07:18-0400 Body temperature 96.9 [degF] Dr. Jennifer Gordon Work Phone: [facility] 01-15-2024 07:18-0400 Body weight 111.[address] Jennifer Gordon Work Phone: [facility] 01-15-2024 07:18-0400 Diastolic blood pressure 80 mm[Hg] Dr. Jennifer Gordon Work Phone: [facility] 01-15-2024 07:18-0400 Heart rate 84 /min Dr. Jennifer Gordon Work Phone: [facility] 01-15-2024 07:18-0400 Inhaled oxygen flow rate 4 L/min Dr. Jennifer Gordon Work Phone: [facility] 01-15-2024 07:18-0400 Respiratory rate 20 /min Dr. Jennifer Gordon Work Phone: [facility] 01-15-2024 07:18-0400 SaO2% (BldA) [Mass fraction] 97 % Dr. Jennifer Gordon Work Phone: [facility] 01-15-2024 07:18-0400 Systolic blood pressure 141 mm[Hg] Dr. Jennifer Gordon Work Phone: [facility] 12-11-2023 09:23-0500 Body mass index (BMI) [Ratio] 42.5 kg/m2 Dr. Jennifer Gordon Work Phone: [facility] 12-11-2023 09:23-0500 Body temperature 98 [degF] Dr. Jennifer Gordon Work Phone: [facility] 12-11-2023 09:23-0500 Body weight [address] Jennifer Gordon Work Phone: [facility] 12-11-2023 09:23-0500 Diastolic blood pressure 66 mm[Hg] Dr. Jennifer Gordon Work Phone: [facility] 12-11-2023 09:23-0500 Heart rate 75 /min Dr. Jennifer Gordon Work Phone: [facility] 12-11-2023 09:23-0500 Respiratory rate 18 /min Dr. Jennifer Gordon Work Phone: [facility] 12-11-2023 09:23-0500 SaO2% (BldA) [Mass fraction] 93 % Dr. Jennifer Gordon Work Phone: [facility] 12-11-2023 09:23-0500 Systolic blood pressure 103 mm[Hg] Dr. Jennifer Gordon Work Phone: [facility] 12-11-2023 09:21-0500 Body height 165.[address] Jennifer Gordon Work Phone: [facility] 12-11-2023 07:33-0500 Body mass index (BMI) [Ratio] 42.4 kg/m2 Dr. Jennifer Gordon Work Phone: [facility] 12-11-2023 07:33-0500 Body temperature 98.1 [degF] Dr. Jennifer Gordon Work Phone: [facility] 12-11-2023 07:33-0500 Body weight 115.[address] Jennifer Gordon Work Phone: [facility] 12-11-2023 07:33-0500 Diastolic blood pressure 82 mm[Hg] Dr. Jennifer Gordon Work Phone: [facility] 12-11-2023 07:33-0500 Heart rate 75 /min Dr. Jennifer Gordon Work Phone: [facility] 12-11-2023 07:33-0500 Inhaled oxygen flow rate 4 L/min Dr. Jennifer Gordon Work Phone: [facility] 12-11-2023 07:33-0500 Respiratory rate 18 /min Dr. Jennifer Gordon Work Phone: [facility] 12-11-2023 07:33-0500 SaO2% (BldA) [Mass fraction] 95 % Dr. Jennifer Gordon Work Phone: [facility] 12-11-2023 07:33-0500 Systolic blood pressure 128 mm[Hg] Dr. Jennifer Gordon Work Phone: [facility] 11-28-2023 14:55-0500 Body height 165.[address] Jennifer Gordon Work Phone: [facility] 11-28-2023 14:55-0500 Body mass index (BMI) [Ratio] 40.2 kg/m2 Dr. Jennifer Gordon Work Phone: [facility] 11-28-2023 14:55-0500 Body temperature 98 [degF] Dr. Jennifer Gordon Work Phone: [facility] 11-28-2023 14:55-0500 Body weight 109.[address] Jennifer Gordon Work Phone: [facility] 11-28-2023 14:55-0500 Diastolic blood pressure 66 mm[Hg] Dr. Jennifer Gordon Work Phone: [facility] 11-28-2023 14:55-0500 Heart rate 96 /min Dr. Jennifer Gordon Work Phone: [facility] 11-28-2023 14:55-0500 Respiratory rate 17 /min Dr. Jennifer Gordon Work Phone: [facility] 11-28-2023 14:55-0500 SaO2% (BldA) [Mass fraction] 93 % Dr. Jennifer Gordon Work Phone: [facility] 11-28-2023 14:55-0500 Systolic blood pressure 110 mm[Hg] Dr. Jennifer Gordon Work Phone: [facility] 10-17-2023 13:57-0500 Body mass index (BMI) [Ratio] 39.6 kg/m2 Dr. Jennifer Gordon Work Phone: [facility] 10-17-2023 13:57-0500 Body weight 107.[address] Jennifer Gordon Work Phone: [facility] 10-17-2023 13:57-0500 Diastolic blood pressure 81 mm[Hg] Dr. Jennifer Gordon Work Phone: [facility] 10-17-2023 13:57-0500 Heart rate 74 /min Dr. Jennifer Gordon Work Phone: [facility] 10-17-2023 13:57-0500 Respiratory rate 18 /min Dr. Jennifer Gordon Work Phone: [facility] 10-17-2023 13:57-0500 Systolic blood pressure 122 mm[Hg] Dr. Jennifer Gordon Work Phone: [facility] 06-05-2023 10:16-0400 Body height 165.[address] Rusty Dozier Work Phone: [facility] 06-05-2023 10:16-0400 Body mass index (BMI) [Ratio] 37.3 kg/m2 Dr. Rusty Dozier Work Phone: [facility] 06-05-2023 10:16-0400 Body temperature 95 [degF] Dr. Rusty Dozier Work Phone: [facility] 06-05-2023 10:16-0400 Body weight 101.[address] Rusty Dozier Work Phone: [facility] 06-05-2023 10:16-0400 Diastolic blood pressure 68 mm[Hg] Dr. Rusty Dozier Work Phone: [facility] 06-05-2023 10:16-0400 Heart rate 88 /min Dr. Rusty Dozier Work Phone: [facility] 06-05-2023 10:16-0400 Respiratory rate 18 /min Dr. Rusty Dozier Work Phone: [facility] 06-05-2023 10:16-0400 SaO2% (BldA) [Mass fraction] 95 % Dr. Rusty Dozier Work Phone: 7(383)196-494167 [place] [address] 06-05-2023 10:16-0400 Systolic blood pressure 124 mm[Hg] Dr. Rusty Dozier Work Phone: 4(935)220-878279 [place] [address] 04-18-2023 14:37-0400 Body height 165.[address] Rusty Dozier Work Phone: 2(820)894-867279 [place] [address] 04-18-2023 14:37-0400 Body mass index (BMI) [Ratio] 35.7 kg/m2 Dr. Rusty Dozier Work Phone: 5(116)303-594279 [place] [address] 04-18-2023 14:37-0400 Body weight 97.[address] Rusty Dozier Work Phone: 6(257)358-379279 [place] [address] 04-18-2023 14:37-0400 Diastolic blood pressure 84 mm[Hg] Dr. Rusty Dozier Work Phone: 4(115)913-750979 [place] [address] 04-18-2023 14:37-0400 Heart rate 99 /min Dr. Rusty Dozier Work Phone: 9(592)802-276479 [place] [address] 04-18-2023 14:37-0400 Respiratory rate 18 /min Dr. Rusty Dozier Work Phone: 4(836)389-882379 [place] [address] 04-18-2023 14:37-0400 Systolic blood pressure 122 mm[Hg] Dr. Rusty Dozier Work Phone: 0(349)435-501579 [place] [address] 02-24-2023 09:35-0400 Body mass index (BMI) [Ratio] 35.9 kg/m2 Dr. Rusty Dozier Work Phone: 9(352)420-327479 [place] [address] 02-24-2023 09:35-0400 Body temperature 97.9 [degF] Dr. Rutsy Dozier Work Phone: 9(188)221-301079 [place] [address] 02-24-2023 09:35-0400 Body weight 97.[address] Rusty Dozier Work Phone: 9(647)057-160079 [place] [address] 02-24-2023 09:35-0400 Diastolic blood pressure 81 mm[Hg] Dr. Rusty Dozier Work Phone: [facility] 02-24-2023 09:35-0400 Heart rate 104 /min Dr. Rusty Dozier Work Phone: [facility] 02-24-2023 09:35-0400 Inhaled oxygen flow rate 4 L/min Dr. Rusty Dozier Work Phone: [facility] 02-24-2023 09:35-0400 Respiratory rate 22 /min Dr. Rusty Dozier Work Phone: [facility] 02-24-2023 09:35-0400 SaO2% (BldA) [Mass fraction] 97 % Dr. Rusty Dozier Work Phone: [facility] 02-24-2023 09:35-0400 Systolic blood pressure 118 mm[Hg] Dr. Rusty Dozier Work Phone: [facility] 02-07-2023 14:38-0400 Body height 165.1 cm MANAGER SCH[employer]ULING-C Jonathan Hellinger MANAGER SCHEDULING Work Phone: [facility] 02-07-2023 14:38-0400 Body mass index (BMI) [Ratio] 35.2 kg/m2 MANAGER SCH[employer]UL[employer]-C Jonathan Hellinger MANAGER SCHEDULING Work Phone: [facility] 02-07-2023 14:38-0400 Body temperature 98.2 [degF] MANAGER SCHEDULING-C Jonathan Hellinger MANAGER SCHEDULING Work Phone: [facility] 02-07-2023 14:38-0400 Body weight 95.87 kg MANAGER SCHEDULING-C Jonathan Hellinger MANAGER SCHEDULING Work Phone: [facility] 02-07-2023 14:38-0400 Diastolic blood pressure 70 mm[Hg] MANAGER SCHEDULING-C Jonathan Hellinger MANAGER SCHEDULING Work Phone: [facility] 02-07-2023 14:38-0400 Heart rate 127 /min MANAGER SCHEDULING-C Jonathan Hellinger MANAGER SCHEDULING Work Phone: [facility] 02-07-2023 14:38-0400 Inhaled oxygen flow rate 4 L/min MANAGER SCHEDULING-C Jonathan Hellinger MANAGER SCHEDULING Work Phone: [facility] 02-07-2023 14:38-0400 Respiratory rate 17 /min MANAGER SCHEDULING-C Jonathan Hellinger MANAGER SCHEDULING Work Phone: [facility] 02-07-2023 14:38-0400 SaO2% (BldA) [Mass fraction] 95 % MANAGER SCHEDULING-C Jonathan Hellinger MANAGER SCHEDULING Work Phone: [facility] 02-07-2023 14:38-0400 Systolic blood pressure 126 mm[Hg] MANAGER SCHEDULING-C Jonathan Hellinger MANAGER SCHEDULING Work Phone: [facility] 12-01-2022 11:21-0500 Diastolic blood pressure 60 mm[Hg] MANAGER SCHEDULING-C Jonathan Hellinger MANAGER SCHEDULING Work Phone: [facility] 12-01-2022 11:21-0500 Heart rate 82 /min MANAGER SCHEDULING-C Jonathan Hellinger MANAGER SCHEDULING Work Phone: [facility] 12-01-2022 11:21-0500 Systolic blood pressure 108 mm[Hg] MANAGER SCHEDULING-C Jonathan Hellinger MANAGER SCHEDULING Work Phone: [facility] 12-01-2022 08:06-0500 Body height 165.1 cm MANAGER SCHEDULING-C Jonathan Hellinger MANAGER SCHEDULING Work Phone: [facility] 12-01-2022 08:06-0500 Body mass index (BMI) [Ratio] 34.9 kg/m2 MANAGER SCHEDULING-C Jonathan Hellinger MANAGER SCHEDULING Work Phone: [facility] 12-01-2022 08:06-0500 Body temperature 97.2 [degF] MANAGER SCHEDULING-C Jonathan Hellinger MANAGER SCHEDULING Work Phone: [facility] 12-01-2022 08:06-0500 Body weight 95.25 kg MANAGER SCHEDULING-C Jonathan Hellinger MANAGER SCHEDULING Work Phone: [facility] 12-01-2022 08:06-0500 Inhaled oxygen flow rate 4 L/min MANAGER SCHEDULING-C Jonathan Rutherford MANAGER SCHEDULING Work Phone: [facility] 12-01-2022 08:06-0500 Respiratory rate 16 /min MANAGER SCHEDULING-C Jonathan Rutherford MANAGER SCHEDULING Work Phone: [facility] 12-01-2022 08:06-0500 SaO2% (BldA) [Mass fraction] 99 % MANAGER SCHEDULING-C Jonathan Rutherford MANAGER SCHEDULING Work Phone: [facility] 10-06-2022 15:00-0500 Body height 165.[address] Rusty Dozier Work Phone: [facility] Work Phone: 10-06-2022 15:00-0500 Body mass index (BMI) [Ratio] 36.8 kg/m2 Dr. Rusty Dozier Work Phone: [facility] 10-06-2022 15:00-0500 Body temperature 97.8 [degF] Dr. Rusty Dozier Work Phone: [facility] 10-06-2022 15:00-0500 Body weight 100.[address] Rusty Dozier Work Phone: [facility] 10-06-2022 15:00-0500 Diastolic blood pressure 68 mm[Hg] Dr. Rusty Dozier Work Phone: [facility] 10-06-2022 15:00-0500 Heart rate 51 /min Dr. Rusty Dozier Work Phone: [facility] 10-06-2022 15:00-0500 Respiratory rate 16 /min Dr. Rusty Dozier Work Phone: [facility] 10-06-2022 15:00-0500 SaO2% (BldA) [Mass fraction] 96 % Dr. Rusty Dozier Work Phone: [facility] 10-06-2022 15:00-0500 Systolic blood pressure 138 mm[Hg] Dr. Rusty Dozier Work Phone: [facility] 07-19-2022 14:30-0400 Body height 162.6 cm Debrapatrick Adamson CHIEF OF ANESTHESIOLOGY Work Phone: [facility] 07-19-2022 14:30-0400 Body mass index (BMI) [Ratio] 39.31 kg/m2 Debra Snow CHIEF OF ANESTHESIOLOGY Work Phone: [facility] 07-19-2022 14:30-0400 Body weight 103.87 kg Debra Snow CHIEF OF ANESTHESIOLOGY Work Phone: [facility] 07-19-2022 14:30-0400 Diastolic blood pressure 44 mm[Hg] Debra Snow CHIEF OF ANESTHESIOLOGY Work Phone: [facility] 07-19-2022 14:30-0400 Heart rate 88 /min Debra Snow CHIEF OF ANESTHESIOLOGY Work Phone: [facility] 07-19-2022 14:30-0400 SaO2% (BldA) [Mass fraction] 96 % Debra Snow CHIEF OF ANESTHESIOLOGY Work Phone: [facility] Comment on above: [facility] 07-19-2022 14:30-0400 Systolic blood pressure 142 mm[Hg] Debra Snow CHIEF OF ANESTHESIOLOGY Work Phone: [facility] 07-08-2022 11:26-0400 Body height 162.6 cm Estrada Garcia MD Work Phone: [facility] 07-08-2022 11:26-0400 Body mass index (BMI) [Ratio] 39.07 kg/m2 Estrada Garcia MD Work Phone: [facility] 07-08-2022 11:26-0400 Body temperature 98.91 [degF] Estrada Garcia MD Work Phone: [facility] 07-08-2022 11:26-0400 Body weight 103.24 kg Estrada Garcia MD Work Phone: [facility] 07-08-2022 11:26-0400 Diastolic blood pressure 81 mm[Hg] Estrada Garcia MD Work Phone: [facility] 07-08-2022 11:26-0400 Heart rate 73 /min Estrada Garcia MD Work Phone: [facility] 07-08-2022 11:26-0400 Respiratory rate 18 /min Estrada Garcia MD Work Phone: [facility] 07-08-2022 11:26-0400 SaO2% (BldA) [Mass fraction] 97 % Estrada Garcia MD Work Phone: [facility] 07-08-2022 11:26-0400 Systolic blood pressure 119 mm[Hg] Estrada Garcia MD Work Phone: [facility] 06-29-2022 08:54-0400 Respiratory rate 18 /min Jaiden Bagley MD Work Phone: [facility] 06-29-2022 07:47-0400 Body temperature 98.01 [degF] Jaiden Bagley MD Work Phone: [facility] 06-29-2022 07:47-0400 Diastolic blood pressure 95 mm[Hg] Jaiden Bagley MD Work Phone: [facility] 06-29-2022 07:47-0400 Heart rate 79 /min Jaiden Bagley MD Work Phone: [facility] 06-29-2022 07:47-0400 SaO2% (BldA) [Mass fraction] 95 % Jaiden Bagley MD Work Phone: [facility] 06-29-2022 07:47-0400 Systolic blood pressure 173 mm[Hg] Jaiden Bagley MD Work Phone: [facility] 06-21-2022 17:00-0400 Body height 162.6 cm Jaiden Bagley MD Work Phone: [facility] 06-21-2022 17:00-0400 Body mass index (BMI) [Ratio] 39.82 kg/m2 Jaiden Bagley MD Work Phone: [facility] 06-21-2022 17:00-0400 Body weight 105.23 kg Jaiden Bagley MD Work Phone: [facility] 04-04-2022 11:29-0400 Body temperature 97.9 [degF] Jada Vargas MD Work Phone: [facility] 04-04-2022 06:00-0400 Heart rate 87 /min Jada Vargas MD Work Phone: [facility] 04-04-2022 06:00-0400 Respiratory rate 19 /min Jada Vargas MD Work Phone: [facility] 04-04-2022 06:00-0400 SaO2% (BldA) [Mass fraction] 99 % Jada Vargas MD Work Phone: [facility] 04-04-2022 03:50-0400 Body mass index (BMI) [Ratio] 40.64 kg/m2 Jada Vargas MD Work Phone: [facility] 04-04-2022 03:50-0400 Body weight 107.4 kg Jada Vargas MD Work Phone: [facility] 04-03-2022 23:00-0400 Diastolic blood pressure 93 mm[Hg] Jada Vargas MD Work Phone: [facility] 04-03-2022 23:00-0400 Systolic blood pressure 186 mm[Hg] Jada Vargas MD Work Phone: [facility] 03-01-2022 09:47-0400 Body mass index (BMI) [Ratio] 43.36 kg/m2 Jada Vargas MD Work Phone: [facility] 03-01-2022 09:47-0400 Body weight 114.58 kg Jada Vargas MD Work Phone: [facility] 03-01-2022 09:47-0400 Diastolic blood pressure 74 mm[Hg] Jada Vargas MD Work Phone: [facility] 03-01-2022 09:47-0400 Heart rate 90 /min Jada Vargas MD Work Phone: [facility] 03-01-2022 09:47-0400 Systolic blood pressure 142 mm[Hg] Jada Vargas MD Work Phone: [facility] 12-30-2021 10:43-0500 SaO2% (BldA) [Mass fraction] 94 % Estrada Garcia MD Work Phone: [facility] Comment on above: on room air after rest 12-30-2021 10:35-0500 Body mass index (BMI) [Ratio] 41.76 kg/m2 Estrada Garcia MD Work Phone: [facility] 12-30-2021 10:35-0500 Body temperature 98.29 [degF] Estrada Garcia MD Work Phone: [facility] 12-30-2021 10:35-0500 Body weight 110.36 kg Estrada Garcia MD Work Phone: [facility] 12-30-2021 10:35-0500 Diastolic blood pressure 68 mm[Hg] Estrada Garcia MD Work Phone: [facility] 12-30-2021 10:35-0500 Heart rate 107 /min Estrada Garcia MD Work Phone: [facility] 12-30-2021 10:35-0500 Systolic blood pressure 109 mm[Hg] Estrada Garcia MD Work Phone: [facility] 08-04-2021 14:09-0400 Body height 162.6 cm Mo Pipe Line Walker CHIEF OF ANESTHESIOLOGY Work Phone: [facility] 08-04-2021 14:09-0400 Body mass index (BMI) [Ratio] 39.82 kg/m2 Mo [place] Walker CHIEF OF ANESTHESIOLOGY Work Phone: [facility] 08-04-2021 14:09-0400 Body weight 105.23 kg Mo [place] Walker CHIEF OF ANESTHESIOLOGY Work Phone: [facility] 08-04-2021 14:09-0400 Diastolic blood pressure 82 mm[Hg] Mo P[employer] [place] Walker CHIEF OF ANESTHESIOLOGY Work Phone: [facility] 08-04-2021 14:09-0400 Heart rate 110 /min Mo Meeker CHIEF OF ANESTHESIOLOGY Work Phone: [facility] 08-04-2021 14:09-0400 SaO2% (BldA) [Mass fraction] 93 % Mo [place] Walker CHIEF OF ANESTHESIOLOGY Work Phone: [facility] 08-04-2021 14:09-0400 Systolic blood pressure 138 mm[Hg] Mo Meeker CHIEF OF ANESTHESIOLOGY Work Phone: [facility] 04-14-2021 19:15-0400 Diastolic blood pressure 92 mm[Hg] Georgie Vázquez MD Work Phone: [facility] 04-14-2021 19:15-0400 Heart rate 78 /min Georgie Vázquez MD Work Phone: [facility] 04-14-2021 19:15-0400 Respiratory rate 16 /min Georgie Vázquez MD Work Phone: [facility] 04-14-2021 19:15-0400 SaO2% (BldA) [Mass fraction] 93 % Georgie Vázquez MD Work Phone: [facility] 04-14-2021 19:15-0400 Systolic blood pressure 160 mm[Hg] Georgie Vázquez MD Work Phone: [facility] 04-14-2021 15:19-0400 Body temperature 98.2 [degF] Georgie Vázquez MD Work Phone: [facility] 04-14-2021 15:10-0400 Body height 165.1 cm Georgie Vázquez MD Work Phone: [facility] 04-14-2021 15:10-0400 Body mass index (BMI) [Ratio] 39.94 kg/m2 Georgie Vázquez MD Work Phone: [facility] 04-14-2021 15:10-0400 Body weight 108.86 kg Georgie Vázquez MD Work Phone: [facility] 11-02-2020 13:24-0500 BMI (Body Mass Index) 36.61 kg/m2 [facility] 11-02-2020 13:24-0500 Body Temperature 98.91 [degF] [facility] 11-02-2020 13:24-0500 Body weight 99.79 kg [facility] 11-02-2020 13:24-0500 BP Diastolic 91 mm[Hg] [facility] 11-02-2020 13:24-0500 BP Systolic 175 mm[Hg] [facility] 11-02-2020 13:24-0500 Height 165.1 cm [facility] 11-02-2020 13:24-0500 Pulse (Heart Rate) 97 /min [facility] 11-02-2020 13:24-0500 Pulse Oximetry 97 % [facility] 11-02-2020 13:24-0500 Respiratory Rate 20 /min [facility] 09-15-2020 14:27-0500 BMI (Body Mass Index) 34.28 kg/m2 [facility] 09-15-2020 14:27-0500 Body weight 93.44 kg [facility] 09-15-2020 14:27-0500 BP Diastolic 82 mm[Hg] [facility] 09-15-2020 14:27-0500 BP Systolic 147 mm[Hg] [facility] 09-15-2020 14:27-0500 Height 165.[address] 09-15-2020 14:27-0500 Pulse (Heart Rate) 120 /min [facility] 09-15-2020 14:27-0500 Respiratory Rate 18 /min [facility] 05-07-2019 15:42-0400 Body Temperature 98.2 [degF] [facility] 05-07-2019 15:42-0400 BP Diastolic 77 mm[Hg] [facility] 05-07-2019 15:42-0400 BP Systolic 127 mm[Hg] [facility] 05-07-2019 15:42-0400 Pulse (Heart Rate) 107 /min [facility] 05-07-2019 15:42-0400 Pulse Oximetry 96 % [facility] 05-07-2019 15:42-0400 Respiratory Rate 14 /min [facility] 05-07-2019 15:15-0400 BMI (Body Mass Index) 34.28 kg/m2 Jose [facility] 05-07-2019 15:15-0400 Body weight 93.44 kg Jose [facility] 05-07-2019 15:15-0400 Height 165.1 cm [facility] 04-10-2019 13:11-0400 BMI (Body Mass Index) 34.28 kg/m2 [facility]-10[facility] 13:11-0400 Height 165.1 cm [facility] 04-10-2019 13:11-0400 Weight 93.44 kg [facility] 04-05-2019 13:35-0400 BMI (Body Mass Index) 34.28 kg/m2 [facility] 04-05-2019 13:35-0400 BP Diastolic 76 mm[Hg] [facility] 04-05-2019 13:35-0400 BP Systolic 145 mm[Hg] [facility] 04-05-2019 13:35-0400 Height 165.1 cm [facility] 04-05-2019 13:35-0400 Pulse (Heart Rate) 79 /min [facility] 04-05-2019 13:35-0400 Pulse Oximetry 93 % [facility] 04-05-2019 13:35-0400 Weight 93.44 kg [facility] 09-17-2018 16:56-0500 Body temperature 37.0 Celsius [facility] Comment on above: Performed By: #### CBCWOD, PT, PTT, DDIM R, EDCTNI, NTPROBNP, CHEM8, LIPASE, CMETADD #### Unless otherwise noted, all testing performed by [facility] [place] [address] [address] [place], [place] [address] CLIA: [id number] Lithograph Operator: Maurice Coello M.D. 07-04-2017 13:06-0400 BMI (Body Mass Index) 33.28 kg/m2 Vaibhav Naranjo [facility] Work Phone: 07-04-2017 13:06-0400 Height 165.1 cm Vaibhav Naranjo [facility] Work Phone: 07-04-2017 13:06-0400 Weight 90.72 kg Vaibhav Naranjo [facility] Work Phone: Encounters Encounter Date Encounter Type Care Provider Facility Start: 09-11-2025 End: 09-12-2025 Emergency department patient visit [facility] Start: 09-01-2025 End: 09-01-2025 ambulatory [facility] Facility[facility] Start: 08-28-2025 End: 08-28-2025 Telephone encounter Garland Kumar RD, [facility] Start: 08-27-2025 End: 08-27-2025 Telephone encounter Garland Kumar RD, [facility] Start: 08-11-2025 End: 08-11-2025 Emergency department patient visit PHYSICIAN [facility] Start: 08-07-2025 End: 08-07-2025 Telephone encounter Meliza Rust [facility] Start: 08-05-2025 End: 08-05-2025 Documentation procedure Garland Kumar RD, LD [facility] Comment on above: CMN and clinic notes securely faxed to [employer]. @ Start: 07-23-2025 End: 07-23-2025 ambulatory ANDRE MARTINEZ [facility] Start: 07-23-2025 End: 07-23-2025 ambulatory EMMETT HYMAN [facility] Start: 07-23-2025 End: 07-23-2025 Office outpatient visit 40 minutes Emmett Hyman MD Work Phone: [facility] Comment on above: Follow Up (Medical) Start: 07-20-2025 Non-patient / Non-visit Dr. Vincent Hood MD -[facility] Work Phone: Start: 07-19-2025 Non-patient / Non-visit Dr. Mally Cano MD -[facility] Work Phone: Start: 07-18-2025 Non-patient / Non-visit Dr. Mally Cano MD -[facility] Work Phone: Start: 07-17-2025 ambulatory Jennifer Gordon Facility :[facility] Start: 07-17-2025 End: 07-20-2025 Evaluation and management of inpatient Dr. Elana Deshpande DO -Progressive Care Unit Work Phone: Start: 07-11-2025 End: 07-11-[address] Jennifer Gordon MD Work Phone: -Sleep Lab Start: 07-11-2025 End: 07-11-2025 Patient encounter procedure BARBARA Black -Sleep Lab Work Phone: Start: 07-11-2025 End: 07-11-2025 ambulatory Colette Black Facility:[facility] Start: 07-09-2025 ambulatory [facility] Start: 06-26-2025 End: 06-26-[address] Jennifer Gordon MD Work Phone: -[facility]atory [place] Start: 06-26-2025 End: 06-26-2025 Patient encounter procedure Mihaela Simpson NP-C -[facility] Work Phone: Start: 06-26-2025 End: 06-26-2025 Patient encounter procedure Mihaela Simpson NP-C -[facility] Work Phone: Start: 06-26-2025 End: 06-26-[address] Jennifer Gordon MD Work Phone: -[facility] Start: 06-26-2025 End: 06-26-2025 ambulatory Jennifer Gordon Facility:[facility] Start: 06-24-2025 End: 06-24-[address] Jennifer Gordon MD Work Phone: -Pulmonary Services/Neurology Start: 06-24-2025 End: 06-24-2025 Patient encounter procedure BARBARA Black -Pulmonary Services/Neurology Work Phone: Start: 06-24-2025 End: 06-24-2025 ambulatory Colette Black Facility:[facility] Start: 06-17-2025 End: 06-17-2025 Patient encounter procedure MANAGER SCHEDULING Colette Black -[facility] Work Phone: Start: 06-17-2025 End: 06-17-[address] Jennifer Gordon MD Work Phone: -[facility] Start: 06-17-2025 End: 06-17-2025 Telephone encounter Nikolai Gray [facility] Comment on above: Follow Up (Medical) Start: 06-11-2025 End: 06-11-2025 Telephone encounter Meliza Rust [facility] Start: 05-07-2025 End: 05-07-[address] Jennifer Gordon MD Work Phone: -Ultrasound [facility] Start: 05-07-2025 End: 05-07-[address] Jennifer Gordon MD -Ultrasound [facility] Work Phone: Start: 05-07-2025 End: 05-07-2025 ambulatory Jennifer Gordon Facility:[facility] Start: 05-02-2025 End: 05-02-2025 Telephone encounter Meaghan Valero [facility] Start: 04-30-2025 End: 04-30-2025 Office outpatient visit 25 minutes Cb Boudreaux MD Work Phone: [facility] Comment on above: NSVT (nonsustained v entricular tachycardia) (HCC) Start: 04-30-2025 End: 04-30-2025 ambulatory PHYSICIAN NO [facility] Start: 04-28-2025 ambulatory [facility] Start: 04-17-2025 End: 04-17-[address] Jennifer Gordon MD Work Phone: [facility] Work Phone: Start: 04-17-2025 End: 04-17-2025 Patient encounter procedure Sasha Heredia MANAGER SCHEDULING-C -Cat Scan [facility] Work Phone: Start: 2025 End: [address] Jennifer Gordon MD -[facility] Work Phone: Start: 2025 End: 04-17-[address] Jennifer Gordon MD Work Phone: [facility] Work Phone: Start: 2025 End: 2025 ambulatory Jennifer Gordon Facility:[facility] Start: 04-07-2025 End: 04-07-2025 ambulatory PHYSICIAN [facility] Start: 04-04-2025 End: 04-04-2025 Patient encounter procedure BARBARA Black -[facility] Work Phone: Start: 04-04-2025 End: 04-04-[address] Jennifer Gordon MD Work Phone: [facility] Work Phone: Start: 04-03-2025 End: 04-03-[address] Cary Jacobsen MD -[facility] Work Phone: Start: 04-03-2025 End: 04-03-[address] Jennifer Gordon MD Work Phone: [facility] Work Phone: Start: 03-27-2025 End: 03-27-[address] Rusty Dozier MD -[facility] Work Phone: Start: 03-27-2025 End: 03-27-2025 ambulatory Jennifer Gordon Facility:[facility] Start: 03-05-2025 End: 06-15-2025 Telephone encounter Shaina Boykin MD Work Phone: [facility] Comment on above: Illness Start: 02-28-2025 ambulatory Cary Jacobsen Facility :[facility] Start: 02-27-2025 End: 02-27-[address] Melvin Oshea MD -[facility] Start: 02-27-2025 End: 02-27-2025 ambulatory Melvin Oshea Facility:[facility] Start: 02-27-2025 End: 02-27-2025 Patient encounter procedure Hui SANCHEZ -[facility] Work Phone: Start: 02-27-2025 End: 02-27-2025 ambulatory Hui Ventura Facility:[facility] Start: 02-25-2025 End: 02-25-[address] Cary Jacobsen MD -[facility] Work Phone: Start: 02-25-2025 End: 02-25-2025 ambulatory Cary Jacobsen Facility:[facility] Start: 02-13-2025 End: 02-18-2025 Evaluation and management of inpatient Astrid Sanders DO Work Phone: [facility] Start: 02-05-2025 End: 02-05-2025 Refill Julissa Parikh [facility] Comment on above: Refill Request (Dolj enrique ) Start: 02-03-2025 End: 02-03-[address] Jennifer Gordon MD Work Phone: [facility] Work Phone: Start: 02-03-2025 End: 02-03-2025 Patient encounter procedure Hui SANCHEZ -[facility] Work Phone: Start: 02-03-2025 ambulatory Flavia Shine [facility] Start: 02-03-2025 End: 02-03-2025 ambulatory Hui Ventura Facility:[facility] Start: 01-21-2025 End: 01-21-[address] Cary Jacobsen MD -[facility] Work Phone: Start: 01-21-2025 End: 01-21-2025 ambulatory Jennifer Gordon Facility:[facility] Start: 01-13-2025 End: 01-13-[address] Jennifer Gordon MD Work Phone: [facility] Work Phone: Start: 01-13-2025 End: 01-13-[address] Rusty Dozier MD -[facility] Work Phone: Start: 01-13-2025 End: 01-13-2025 ambulatory Jennifer Gordon Facility:[facility] Start: 01-06-2025 End: 01-06-2025 Patient encounter procedure Hui SANCHEZ -[facility] Work Phone: Start: 01-06-2025 End: 01-06-2025 ambulatory Hui Whitehead Facility:[facility] Start: 01-01-2025 End: 01-01-2025 Emergency department patient visit Dr. Teddy Rust MD -Emergency Department Work Phone: Start: 12-26-2024 End: 12-26-[address] Rusty Dozier MD -[facility] Work Phone: Start: 12-26-2024 End: 12-26-2024 ambulatory Jennifer Heidi Facility:[facility] Start: 11-12-2024 End: 11-12-2024 Emergency department patient visit PHYSICIAN NO [facility] Start: 10-25-2024 ambulatory PHYSICIAN NO [facility] Ambulatory Start: 10-23-2024 End: 10-23-2024 Orders Only Cb Boudreaux MD Work Phone: [facility] Comment on above: Ventricular tachycar liv (HCC) (Primary Dx); Palpitations; NSVT (nonsustained ventricular tachycardia) (HCC) Start: 10-16-2024 End: 10-16-[address] Jennifer Gordon MD -[facility] Work Phone: Start: 10-16-2024 End: 10-16-2024 ambulatory Jennifer Gordon Facility:[facility] Start: 10-15-2024 End: 10-15-2024 Telephone encounter Cecille Johnson LPN [facility] Comment on above: Medication Prior Aut horization (General) (Dojolvi) Start: 09-21-2024 End: 09-25-2024 Evaluation and management of inpatient Sally Talbot MD Work Phone: [facility] Start: 09-18-2024 End: 09-18-2024 Office outpatient new 45 minutes Provider Not In System [facility] Comment on above: Ventricular tachycar liv (HCC); Palpitations; NSVT (nonsustained ventricular tachycardia) (HCC) Start: 09-18-2024 End: 09-18-2024 ambulatory PHYSICIAN NO [facility] Start: 09-16-2024 End: 09-16-2024 Orders Only Cb Boudreaux MD Work Phone: [facility] Comment on above: NSVT (nonsustained v entricular tachycardia) (HCC) (Primary Dx) Start: 09-02-2024 End: 09-03-2024 Evaluation and management of inpatient Thee Salmeron MD Work Phone: [facility] Start: 09-02-2024 End: 09-02-2024 Orders Only Rivas Jules MD Work Phone: [facility] Comment on above: Pain (Primary Dx) Start: 08-21-2024 ambulatory JONATHAN RUTHERFORD [facility] Ambulatory Start: 08-14-2024 End: 08-14-2024 Transcribe Orders Provider Not In System [facility] Start: 03-06-2024 Refill Raya Dutton MA Work Phone: [facility] Comment on above: Medication Refill (L evocarnitine ) Start: 02-29-2024 End: 02-29-[address] Jennifer Gordon Work Phone: [facility] Work Phone: Start: 02-29-2024 End: 02-29-[address] Jennifer Gordon Work Phone: [facility] Work Phone: Start: 02-21-2024 End: 02-21-[address] Jennifer Gordon Work Phone: [facility] Work Phone: Start: 02-21-2024 End: 02-21-[address] Jennifer Gordon Work Phone: [facility]-Pulmonary Services/Neurology Work Phone: Start: 02-07-2024 Non-patient / Non-visit Dr. Stevens Work Phone: [facility] Start: 01-29-2024 Refill Cecille Johnson LPN [facility] Comment on above: Medication Refill (D ojolvi) Start: 01-15-2024 End: 01-15-[address] Jnenifer Gordon Work Phone: [facility] Work Phone: Start: 01-03-2024 End: 01-03-[address] Jennifer Gordon Work Phone: [facility] Work Phone: Start: 01-03-2024 End: 01-03-[address] Jennifer Gordon Work Phone: [facility] Work Phone: Start: 12-29-2023 End: 12-29-[address] Jennifer Gordon Work Phone: [facility] Work Phone: Start: 12-29-2023 End: 12-29-[address] Jennifer Gordon Work Phone: [facility]-Laboratory Work Phone: Start: 12-11-2023 End: 12-11-[address] Jennifer Gordon Work Phone: [facility] Work Phone: Start: 12-11-2023 End: 12-11-[address] Jennifer Gordon Work Phone: [facility] Work Phone: Start: 11-28-2023 End: 11-28-[address] Jennifer Gordon Work Phone: [facility] Work Phone: Start: 11-28-2023 End: 11-28-[address] Jennifer Gordon Work Phone: [facility] Work Phone: Start: 10-17-2023 Telephone encounter Meliza Rust [facility] Start: 10-17-2023 End: 10-17-[address] Jennifer Gordon Work Phone: [facility] Work Phone: Start: 10-16-2023 End: 10-16-2023 Office outpatient visit 15 minutes Rivas Jules MD Work Phone: [facility] Comment on above: Trigger finger of le ft thumb (Primary Dx) Start: 10-06-2023 Orders Only Tawanna Verma LPN [facility] Comment on above: Pain (Primary Dx) Start: 07-03-2023 End: 07-03-[address] Jennifer Gordon Work Phone: [facility] Work Phone: Start: 07-03-2023 End: 07-03-[address] Jennifer Gordon Work Phone: [facility] Work Phone: Start: 06-05-2023 Non-patient / Non-visit Dr. Ra ludy Dozier Work Phone: [facility] Start: 06-05-2023 End: 06-05-[address] Jennifer Gordon Work Phone: [facility] Work Phone: Start: 06-05-2023 End: 06-05-[address] Rusty Dozier Work Phone: [facility]atory, [facility] Start: 06-05-2023 End: 06-05-[address] Rusty Dozier Work Phone: [facility] Work Phone: Start: 06-01-2023 End: 06-01-[address] Rusty Dozier Work Phone: [facility] Work Phone: Start: 06-01-2023 End: 06-01-[address] Rusty Dozier [facility] Work Phone: Start: 05-01-2023 Non-patient / Non-visit Dr. Ra ludy Dozier Work Phone: [facility] Start: 05-01-2023 End: 05-01-[address] Rusty Dozier Work Phone: [facility] Work Phone: Start: 05-01-2023 End: 05-01-[address] Rusty Dozier Work Phone[facility] Work Phone: Start: 04-25-2023 End: 04-25-2023 Non-patient / Non-visit Dr. Rusty Dozier Work Phone: [facility] Work Phone: Start: 04-25-[address] Andrew Dozier Work Phone: [facility] Work Phone: Start: 04-18-2023 End: 04-18-[address] Rusty Dozier Work Phone: [facility] Work Phone: Start: 03-20-2023 Non-patient / Non-visit Dr. Ra ludy Dozier Work Phone: [facility] Work Phone: Start: 02-27-2023 Telephone encounter Jada Newton [facility] Comment on above: FOLLOW-UP Start: 02-24-2023 End: 02-24-[address] 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 Start: 12-28-2022 Non-patient / Non-visit MANAGER SCHEDULING-C T yanet Rutherofrd MANAGER SCHEDULING Work Phone: [facility] Start: 12-28-2022 End: 12-28-2022 ambulatory MANAGER SCHEDULING-C Jonathan Rutherford MANAGER SCHEDULING Work Phone: [facility] Work Phone: Start: 12-28-2022 End: 12-28-2022 Patient encounter procedure MANAGER SCHEDULING-C Jonathan Rutherford MANAGER SCHEDULING Work Phone: [facility] Start: 12-14-2022 Orders Only Suzan Gordon MD Work Phone: [facility] Start: 12-07-2022 End: 12-07-2022 Patient encounter procedure MANAGER SCHEDULING-C Jonathan Rutherford MANAGER SCHEDULING Work Phone: [facility] [place] Start: 12-06-2022 Telephone encounter Rocio Nickerson N [facility] Comment on above: Medication Review [facility] (Dojol[facility]) Start: 12-05-2022 Documentation procedure Khadra Garcia [facility] Comment on above: Refill request for D OJOLVI. Start: 12-01-2022 End: 12-01-2022 ambulatory MANAGER SCHEDULING-C Jonathan Rutherford MANAGER SCHEDULING Work Phone: [facility] Work Phone: Start: 12-01-2022 End: 12-01-2022 Patient encounter procedure MANAGER SCHEDULING-C Jonathan Rutherford MANAGER SCHEDULING Work Phone: [facility] [place] Start: 12-01-2022 End: 12-01-2022 Patient encounter procedure MANAGER SCHEDULING-C Jonathan Rutherford MANAGER SCHEDULING Work Phone: [facility] Internal Medicine Start: 11-23-2022 Telephone encounter Jada Glez [facility] Comment on above: Change Appointment Start: 10-06-2022 End: 10-06-[address] Rusty Dozier Work Phone: [facility] Work Phone: Start: 10-06-2022 End: 10-06-[address] Rusty Dozier Work Phone: [facility] Start: 10-06-2022 End: 10-06-[address] Rusty Dozier Work Phone: [facility] Start: 08-30-2022 Telephone encounter Shakira Cline MD Work Phone: [facility] Start: 07-19-2022 End: 07-19-2022 Office outpatient visit 15 minutes Debra Adamson RUIZ Work Phone: [facility] Comment on above: Pain of upper abdome n (Primary Dx); Nausea; Diarrhea, unspecified type Start: 07-08-2022 End: 07-08-2022 Office outpatient visit 25 minutes Estrada Garcia MD Work Phone: [facility] Comment on above: COPD exacerbation (H CC) (Primary Dx); Screening for lung cancer Start: 06-21-2022 Critical care ill/in jured patient init 30-74 min Jaiden Bagley MD Work Phone: [facility] Start: 06-21-2022 End: 06-29-2022 Evaluation and management of inpatient Jaiden Bagley MD Work Phone: [facility] Start: 03-30-2022 End: 04-04-2022 Evaluation and management of inpatient Jada Vargas MD Work Phone: [facility] Start: 03-28-2022 Documentation procedure Jyoti Thomas on [facility] Start: 03-21-2022 Documentation procedure Jyoti Thomas on [facility] Start: 03-08-2022 Orders Only Jyoti Reeves [facility] Comment on above: Rectal prolapse (Sarah aye Dx); Preoperative testing; Abdominal pain, unspecified abdominal location Start: 03-08-2022 Patient encounter status Jyoti Patel son [facility] Start: 03-07-2022 Orders Only Jyoti Reeves [facility] Comment on above: Rectal prolapse (Sarah aye Dx) Start: 03-01-2022 Admission to [facility] Jada Vargas MD Work Phone: [facility] Start: 03-01-2022 End: 03-01-2022 Office outpatient visit 10 minutes Jada Vargas MD Work Phone: [facility] Comment on above: Rectal prolapse Start: 01-07-2022 Admission to [facility] Comment on above: Hx of colonic polyps (Primary Dx) Start: 01-07-2022 Documentation procedure [facility] Comment on above: Hx of colonic polyps (Primary Dx) Start: 12-30-2021 End: 12-30-2021 Office outpatient new 45 minutes Estrada Garcia MD Work Phone: [facility] Comment on above: Screening for lung c ancer (Primary Dx); Chronic obstructive pulmonary disease, unspecified COPD type (HCC) Start: 08-04-2021 End: 08-04-2021 Office outpatient new 30 minutes Chepe Yin CNP Work Phone: [facility] Comment on above: Dizzy (Primary Dx); Positional lightheadedness; Chronic rhinitis; Dysfunction of Eustachian tube, unspecified laterality Start: 07-29-2021 Transcribe Orders Lilliana dennison [facility] Comment on above: Rectal prolapse (Sarah aye Dx) Start: 07-22-2021 Transcribe Orders Alan Saba MD Work Phone: [facility] Comment on above: Dizzy (Primary Dx) Start: 04-23-2021 Patient encounter procedure Elana Westbrook PT Work Phone: [facility] Work Phone: Start: 2021 PTRECHADUL, Provider : Elana Westbrook, Status: Pen, Time: 4:00 PM February [employer]BILE EQUIPMENT MECHANIC Work Phone: [facility] Work Phone: Start: 04-14-2021 Patient encounter procedure February David MOBILE EQUIPMENT MECHANIC Work Phone: [facility] Work Phone: Start: 04-14-2021 [id number], Provider : Anjana Hernandez, Status: Pen, Time: 4:30 PM February David MOBILE EQUIPMENT MECHANIC Work Phone: [facility] Work Phone: Start: 04-14-2021 End: 04-14-2021 Emergency department patient visit Georgie Vázquez MD Work Phone: [facility] Start: 04-12-2021 Patient encounter procedure February David MOBILE EQUIPMENT MECHANIC Work Phone: [facility] Work Phone: Start: 04-09-2021 Patient encounter procedure Eli Benjamin MOBILE EQUIPMENT MECHANIC Work Phone: [facility] Work Phone: Start: 03-31-2021 [email or web address], Provider : River Sweeney, Status: Pen, Time: 4:15 PM February David MOBILE EQUIPMENT MECHANIC Work Phone: [facility] Work Phone: Start: 03-29-2021 Patient encounter procedure February David MOBILE EQUIPMENT MECHANIC Work Phone: [facility] Work Phone: Start: 01-06-2021 End: 01-06-2021 Orders Only Sheri Bergeron Work Phone: [facility] Start: 11-24-2020 End: 11-24-2020 Patient encounter procedure Rusty Dozier Work Phone: [facility] Comment on above: Polyneuropathy Start: 11-09-2020 End: 11-09-2020 Subsequent hospital visit by physician Flori Rodrigues Work Phone: [facility] Comment on above: Pain Start: 11-09-2020 End: 11-09-2020 Office outpatient new 30 minutes Flori Risavenecia Rodrigues Work Phone: [facility] Comment on above: Primary osteoarthrit is of right knee (Primary Dx) Start: 11-02-2020 End: 11-02-2020 Emergency department patient visit Mars Christiansen Work Phone: [facility] Comment on above: Right knee pain, uns pecified chronicity (Primary Dx) Start: 09-15-2020 End: 09-15-2020 Subsequent hospital visit by physician Rivas Jules Work Phone: [facility] Comment on above: Pain Start: 09-15-2020 End: 09-15-2020 Office outpatient new 30 minutes Jonathan Rutherford Work Phone: [facility] Comment on above: Chronic right should er pain Start: 05-15-2020 End: 05-15-2020 Subsequent hospital visit by physician Elana Pena Work Phone: [facility] Comment on above: Claudication of lowe r extremity (HCC) Start: 05-07-2019 End: 05-07-2019 Emergency department patient visit Jose Long Work Phone: [facility] Comment on above: Right leg pain (Prim samantha Dx); Chronic pain syndrome; Bursitis, unspecified site Start: 05-07-2019 End: 05-07-2019 Subsequent hospital visit by physician Whitley Martinez Work Phone: [facility] Comment on above: Abnormal electrocard iogram ; Cardiomyopathy, unspecified type (HCC); Hypertension, unspecified type Start: 04-10-2019 End: 04-10-2019 Patient encounter procedure Rusty Dozier Work Phone: [facility] Comment on above: Right hip pain Start: 04-05-2019 End: 04-05-2019 Office outpatient new 45 minutes Osacr Vinson Work Phone: [facility] Comment on above: Coronary artery dise ase, angina presence unspecified, unspecified vessel or lesion type, unspecified whether [place] or transplanted heart; Cardiomyopathy, unspecified type (HCC); Sleep apnea, unspecified type; Chronic obstructive pulmonary disease, unspecified COPD type (HCC); Hypertension, unspecified type; Abnormal electrocardiogram ; Chest pain, unspecified type; 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[facility]) Start: 02-13-2019 Patient encounter procedure Facility:[id number] Start: 01-23-2019 Patient encounter procedure Facility:[facility] Start: 01-14-2019 Patient encounter procedure Facility:[facility] Start: 11-29-2018 End: 12-01-2018 Evaluation and management of inpatient Tom Nieves Facility:[facility] Start: 10-10-2018 Patient encounter procedure Jonathan Rutherford Facility:[facility] Start: 09-17-2018 Patient encounter procedure Oscar Vinson Facility:[facility] Start: 07-11-2018 End: 07-11-2018 Patient encounter procedure Tyshawn Santos Facility:[facility] Start: 07-02-2018 End: 07-02-2018 Patient encounter [facility] Start: 07-02-2018 Patient encounter procedure Bety Hernandez Facility:[facility] Start: 07-02-2018 End: 07-02-2018 Patient encounter Andre Martinez Work Phone: [facility] Start: 06-22-2018 Patient encounter procedure Kailee Louis Facility:[facility] Start: 06-20-2018 End: 06-22-2018 Patient encounter procedure Tom Nieves Facility:[facility] Start: 05-28-2018 Patient encounter procedure Vaibhav Naranjo Facility:[facility] Start: 05-18-2018 Patient encounter procedure Vaibhav Naranjo Facility:[facility] Start: 02-05-2018 Patient encounter procedure Andre Sernaada Facility:[facility] Start: 02-05-2018 End: 02-05-2018 Ambulatory Andre Martinez Work Phone: [facility] Start: 01-29-2018 End: 01-30-2018 Patient encounter procedure Jossie Alcazar Facility:[facility] Start: 01-12-2018 End: 01-12-2018 Patient encounter [facility] Start: 01-12-2018 End: 01-12-2018 Ambulatory Bety Hernandez Work Phone: [facility] Start: 11-02-2017 End: 11-02-2017 Ambulatory ELANA PENA Facility:[facility] Start: 09-15-2017 End: 09-15-2017 Ambulatory Elana Pena Work Phone: [facility] Start: 08-16-2017 End: 08-16-2017 Ambulatory Bety Hernandez Work Phone: [facility] Start: 07-05-2017 End: 07-05-2017 Ambulatory Bety Hernandez Work Phone: [facility] Start: 07-04-2017 Patient encounter Vaibhav Naranjo Work Phone: [facility] [place] Start: 08-30-2016 End: 08-30-2016 Ambulatory Brittany Rushing Work Phone: [facility] Start: 08-24-2016 End: 08-24-2016 Telephone encounter Brittany Rushing Work Phone: [facility] Comment on above: Results Procedures [...] Work Phone: Start: 02-18-2025 Glucose measurement Gen [facility] Work Phone: Start: 02-17-2025 Glucose measurement Gen [facility] Work Phone: Start: 02-17-2025 Glucose measurement Gen [facility] Work Phone: Start: 02-17-2025 Basic metabolic pane l calcium total Olga Russell MD Work Phone: Start: 02-17-2025 Glucose measurement Gen jonatan [facility] Work Phone: Start: 02-16-2025 Glucose measurement Gen jonatan [facility] Work Phone: Start: 02-16-2025 Glucose measurement Gen jonatan [facility] Work Phone: Start: 02-16-2025 Glucose measurement Gen jonatan [facility] Work Phone: Start: 02-16-2025 Radiologic exam ches t single view Olga Russell MD Work Phone: Start: 02-16-2025 Natriuretic peptide Afia Russell MD Work Phone: Start: 02-16-2025 Ecg routine ecg w/le ast 12 lds w/i&r Astrid S Sanders DO Work Phone: Start: 02-16-2025 Glucose measurement Gen jonatan [facility] Work Phone: Start: 02-16-2025 Basic metabolic pane l calcium total Olga Russell MD Work Phone: Start: 02-15-2025 Iadna-dna/rna gi pth gn multiplex probe tq 6-11 Olga Russell MD Work Phone: Start: 02-15-2025 Basic metabolic pane l calcium total Olga Russell MD Work Phone: Start: 02-15-2025 End: 02-15-2025 Glucose measurement Generic [facility] Work Phone: Start: 02-14-2025 End: 02-14-2025 Electrocardiogram Generic [facility] Work Phone: Start: 02-14-2025 Basic metabolic pane l calcium total Susan Thakur MD Work Phone: Start: 02-14-2025 Iadna s aureus methi cillin resist amp probe tq Andreeluiz [facility],PharmD Start: 02-13-2025 Assay of troponin quantitative Susan [...] Work Phone: Start: 09-22-2024 Electrocardiogram Gener ic [facility] Work Phone: Start: 09-22-2024 Assay of troponin quantitative Norman Mejía CHIEF OF ANESTHESIOLOGY Work Phone: Start: 09-22-2024 Basic metabolic pane [...] ecg w/le ast 12 lds w/i&r Sally Talobt MD Work Phone: Start: 09-18-2024 Ecg routine ecg w/le ast 12 lds w/i&r Cb Boudreaux MD Work Phone: Start: 09-03-2024 Basic metabolic pane l calcium total Ahmed Mohamed Mosalem MD Work Phone: Start: 09-02-2024 Electrocardiogram Gener ic [facility] Work Phone: Start: 09-02-2024 Assay of [...] Verma LPN Start: 06-29-2022 Glucose measurement Gen [facility] Work Phone: Start: 06-29-2022 End: 06-29-2022 Renal function panel Sheri Hale MD Work Phone: Start: 06-28-2022 Glucose measurement Gen [facility] Work Phone: Start: 06-28-2022 Glucose measurement Gen [facility] Work Phone: Start: 06-28-2022 Glucose measurement Gen [facility] Work Phone: Start: 06-28-2022 Glucose measurement Gen [facility] Work Phone: Start: 06-28-2022 Comprehensive metabo lic panel Sheri Hale MD Work Phone: Start: 06-28-2022 Hepatic function panel Leodan Geronimo MD Work Phone: Start: 06-28-2022 Tissue transglutamin ase IgA measurement Nessa Jay CHIEF OF ANESTHESIOLOGY Work Phone: Start: 06-27-2022 Glucose measurement Gen [facility] Work Phone: Start: 06-27-2022 Glucose measurement Gen [facility] Work Phone: Start: 06-27-2022 Glucose measurement Gen [facility] Work Phone: Start: 06-27-2022 Renal function panel John Hale MD Work Phone: Start: 06-26-2022 Glucose measurement Gen [facility] Work Phone: Start: 06-26-2022 Glucose measurement Gen [facility] Work Phone: Start: 06-26-2022 Glucose measurement Gen [facility] Work Phone: Start: 06-26-2022 Glucose measurement Gen [facility] Work Phone: Start: 06-26-2022 Renal function panel John Hale MD Work Phone: Start: 06-25-2022 Glucose measurement Gen [facility] Work Phone: Start: 06-25-2022 Glucose measurement Gen [facility] Work Phone: Start: 06-25-2022 SARS-CoV-2 (COVID-19 ) RNA [Presence] in Respiratory specimen by CATRINA with probe detection Sheri Hale MD Work Phone: Start: 06-25-2022 Radiologic exam ches t single view Sheri Hale MD Work Phone: Start: 06-25-2022 Glucose measurement Gen [facility] Work Phone: Start: 06-25-2022 Glucose measurement Gen [facility] Work Phone: Start: 06-25-2022 Renal function panel John Hale MD Work Phone: Start: 06-24-2022 Glucose measurement Gen [facility] Work Phone: Start: 06-24-2022 Glucose measurement Gen [facility] Work Phone: Start: 06-24-2022 Glucose measurement Gen [facility] Work Phone: Start: 06-24-2022 Assay of troponin quantitative Sheri Hale MD Work Phone: Start: 06-24-2022 Radiologic exam ches t single view Sheri Hale MD Work Phone: Start: 06-24-2022 Ecg routine ecg w/le ast 12 lds trcg only w/o i&r Sheri Hale MD Work Phone: Start: 06-24-2022 Renal function panel John Hale MD Work Phone: Start: 06-24-2022 Glucose measurement Gen [facility] Work Phone: Start: 06-23-2022 Glucose measurement Gen [facility] Work Phone: Start: 06-23-2022 Glucose measurement Gen [facility] Work Phone: Start: 06-23-2022 Level iv surg pathol ogy gross&microscopic exam Tyshawn Santos MD Work Phone: Start: 06-23-2022 Sigmoidoscopy Tyshawn Santos MD Work Phone: Start: 06-23-2022 End: 06-23-2022 SIGMOIDOSCOPY FLEXIBLE Tyshawn Santos MD Work Phone: Start: 06-23-2022 Glucose measurement Gen [facility] Work Phone: Start: 06-23-2022 Glucose measurement Gen [facility] Work Phone: Start: 06-23-2022 Basic metabolic pane l calcium total Kailee Louis CHIEF OF ANESTHESIOLOGY Work Phone: Start: 06-22-2022 Glucose measurement Gen [facility] Work Phone: Start: 06-22-2022 Glucose measurement Gen [facility] Work Phone: Start: 06-22-2022 Glucose measurement Gen [facility] Work Phone: Start: 06-22-2022 Glucose measurement Gen [facility] Work Phone: Start: 06-21-2022 Glucose measurement Gen [facility] Work Phone: Start: 06-21-2022 Glucose measurement Gen [facility] Work Phone: Start: 06-21-2022 Assay of [...] routine ecg w/le ast 12 lds w/i&r Clinical Psychologist Licensed Generic Start: 03-30-2022 Glucose measurement William Vargas [...] Unless otherwise noted, all testing performed by [facility] [address] [facility] [place] [address] CLIA: [id number] Lithograph Operator: Maurice Coello M.D. Start: 07-02-2018 End: 07-02-2018 [...] Unless otherwise noted, all testing performed by [place] [address] CLIA: [id number] Lithograph Operator: Maurice Coello M.D. Start: 07-05-2016 Mammography Whitley Cobb my Plan of Treatment Date Care Activity Detail Author Start: 2033 RSV Immunization (1 - 1-dose 75+ series) RSV Immunization (1 - 1-dose 75+ series) [facility] Start: 02-18-2032 Screening for malignant neoplasm of colon [facility] Start: 06-23-2027 Screening for malignant neoplasm of colon Flexible sigmoidoscopy [facility] Start: 02-17-2027 Screening for malignant neoplasm of colon [facility] Start: 02-18-2026 Depression screening using PHQ-9 (Patient Health Questionnaire 9) score Depression Screening/Follow-Up (PHQ-2/9) [facility] Start: 02-18-2026 eGFR - Kidney Disease eGFR - Kidney Disease [facility] Start: 02-13-2026 Screening for malignant neoplasm of lung Low-dose CT Lung Cancer Screen [facility] Start: 09-23-2025 Urine screening for protein eGFR - Kidney Disease [facility] Start: 09-03-2025 Urine screening for protein eGFR - Kidney Disease [facility] Start: 09-02-2025 Urine screening for protein eGFR - Kidney Disease [facility] Start: 07-23-2025 End: 07-23-2026 ACYLCARNITINES, QUANTITATIVE, PLASMA & SERUM ACYLCARNITINES, QUANTITATIVE, PLASMA & SERUM Lab Routine CPT2 deficiency Expected: 07/23/2025 (Approximate), Expires: 07/23/2026 [facility] Work Phone: Comment on above: Expected: 07/23/2025 (Approximate), Expi res: 07/23/2026 Start: 07-20-2025 Patient discharge [facility] Start: 07-18-2025 Continuous positive airway pressure ventilation treatment [facility] Start: 07-18-2025 Following clinical pathway protocol [facility] Start: 07-18-2025 Patient referral to dietitian [facility] Start: 07-17-2025 Assessment of risk of venous thromboembolism [facility] Start: 07-17-2025 Inhalation therapy procedure [facility] Start: 07-17-2025 Insertion of catheter into peripheral vein [facility] Start: 07-17-2025 Measuring intake and output [facility] Start: 07-17-2025 Oxygen therapy [facility] Start: 07-17-2025 Providing care according to standard [facility] Start: 07-17-2025 Provision of activity privileges [facility] Start: 07-17-2025 Referral for physical therapy [facility] Start: 07-17-2025 Referral to occupational therapist [facility] Start: 07-17-2025 Referral to service [facility] Start: 07-17-2025 [facility] Start: 07-17-2025 Urinalysis complete panel - Urine [facility] Start: 07-17-2025 Verification routine [facility] Start: 07-17-2025 Admission procedure [facility] Start: 07-17-2025 Hospital admission, emergency, from emergency room, medical nature [facility] Start: 07-17-2025 [facility] Start: 07-07-2025 COVID-19 Vaccine ( season) COVID-19 Vaccine ( season) [facility] Start: 07-07-2025 Influenza vaccination Influenza Vaccine (#1) [facility] Start: 07-04-2025 Polysomnography [facility] Start: 06-11-2025 End: 06-11-2025 Patient encounter procedure 06/11/2025 3:15 PM EDT Appointment [facility] [address] [facility] [address] [place] [address] [place] [address] Emmett Hyman MD [address] [place] [address] Discharge Disposition: Home [facility] Start: 04-30-2025 End: 04-30-2025 Patient encounter procedure 04/30/2025 10:20 AM EDT Office Visit [facility] [address] [place] [address] Cb Boudreaux MD [address] [place] [address] [facility] Start: 01-15-2025 End: 01-15-2025 Patient encounter procedure 01/15/2025 2:00 PM EDT Office Visit [facility] [address] [place] [id number] Cb Boudreaux MD [address] [place] [address] [facility] Start: 01-06-2025 Patient referral [facility] Work Phone: Start: 01-01-2025 [facility] Start: 11-21-2024 End: 11-21-2024 Patient encounter procedure 11/21/2024 8:00 AM EST Appointment [facility] [address] [place] [id number] Cb Boudreaux MD [address] [place] [address] [facility] Start: 09-18-2024 End: 09-18-2024 Patient encounter procedure 09/18/2024 1:00 PM EST Office Visit [facility] [address] [place] [id number] System, Provider Not In Cb Boudreaux MD [address] [facility] [place] [address] [facility] Start: 07-07-2024 COVID-19 Vaccine ( season) COVID-19 Vaccine ( season) [facility] Start: 07-07-2024 COVID-19 Vaccine ( season) COVID-19 Vaccine ( season) [facility] Start: 07-07-2024 Influenza vaccination [facility] Start: 07-03-2024 Screening for malignant neoplasm of lung Low-dose CT Lung Cancer Screen [facility] Start: 06-03-2024 End: 06-03-2024 Patient encounter procedure 06/03/2024 2:00 PM EDT Appointment [facility] [address] 4th [place] [address] [place] [address] Suzan Gordon MD [address] [place] [address] Discharge Disposition: Home [facility] Start: 02-29-2024 Hemoglobin A1c/Hemoglobin.total in Blood [facility] Start: 02-29-2024 [facility] Start: 02-12-2024 End: 02-12-2024 Patient encounter procedure [facility] Start: 02-07-2024 Patient referral [facility] Work Phone: Start: 11-28-2023 Ludowici and lambda light chains [facility] Start: 11-28-2023 Serum immunofixation [facility] Start: 11-28-2023 Urine immunofixation [facility] Start: 11-07-2023 End: 11-07-2023 Patient encounter procedure 11/07/2023 2:45 PM EST Office Visit [facility] [address] [place] [address] [place] [address] Rivas Jules MD [address] [place] [address] [facility] Start: 10-16-2023 End: 10-16-2023 Patient encounter procedure 10/16/2023 2:00 PM EST Office Visit [facility] [address] [place] [address] [place] [address] [phone] Rivas Jules MD [address] [place] [address] [facility] Start: 09-24-2023 Screening for malignant neoplasm of lung Low-dose CT Lung Cancer Screen [facility] Start: 08-14-2023 End: 08-14-2023 Patient encounter procedure 08/14/2023 Appointment Genetics Suzan Gordon MD [address] [place] [address] Genetics [facility] Start: 08-08-2023 Urine screening for protein Urine Microalbumin [facility] Start: 07-07-2023 COVID-19 Vaccine ( season) COVID-19 Vaccine ( season) [facility] Start: 07-07-2023 Influenza vaccination [facility] Start: 07-03-2023 Elastase, pancreatic (el-1), fecal; quantitative [facility] Start: 06-05-2023 Patient referral [facility] Work Phone: Start: 06-05-2023 Celiac disease screen [facility] Start: 2023 Fall risk assessment Falls Risk Assessment [facility] Start: 2023 Pneumococcal Vaccine: 65+ Years (1 of 1 - PCV) Pneumococcal Vaccine: 65+ Years (1 of 1 - PCV) [facility] Start: 03-31-2023 Depression screening using PHQ-9 (Patient Health Questionnaire 9) score [facility] Start: 03-24-2023 Hemoglobin A1c measurement A1C [facility] Start: 03-08-2023 Patient referral [facility] Work Phone: Start: 02-13-2023 End: 02-13-2023 Patient encounter procedure 02/13/2023 Appointment Genetics Suzan Gordon MD [address] [place] [address] [facility] Start: 01-30-2023 Pneumococcal Vaccine: Ped or At-Risk (2 of 4 - PPSV23) Pneumococcal Vaccine: Ped or At-Risk (2 of 4 - PPSV23) [facility] Start: 01-26-2023 End: 01-26-2023 Patient encounter procedure 01/26/2023 Appointment Radiology Estrada Garcia MD [address] [place] [address] [address] [facility] CT Scan Start: 01-24-2023 Microalbumin measurement, urine, quantitative Urine Microalbumin [facility] Start: 01-24-2023 Screening for malignant neoplasm of lung Low-dose CT Lung Cancer Screen [facility] Start: 01-24-2023 Urine screening for protein Urine Microalbumin [facility] Start: 01-05-2023 End: 07-08-2023 Low dose computed tomography of thorax CT Lung Cancer Screening Imaging Routine Screening for lung cancer Expected: 01/05/2023, Expires: 07/08/2023 [facility] Comment on above: Expected: 01/05/2023, Expires: Start: 12-01-2022 Patient referral [facility] Work Phone: Start: 10-06-2022 Ludowici and lambda light chains [facility] Work Phone: Start: 10-06-2022 Thiamine measurement [facility] Work Phone: Start: 08-31-2022 End: 08-31-2022 Patient encounter procedure 08/31/2022 Office Visit Pulmonology Estrada Garcia MD [address] [place] [address] [address] [facility] Start: 08-25-2022 Screening for malignant neoplasm of breast Mammogram [facility] Start: 08-16-2022 Mammography MAMMOGRAM [facility] Start: 08-16-2022 Screening for malignant neoplasm of breast Mammogram [facility] Start: 08-15-2022 End: 08-15-2022 Admission to same day surgery center 08/15/2022 Surgery Tyshawn Santos MD [address] [place] [address] ESOPHAGOGASTRODUODENOSCOPY [facility] Comment on above: ESOPHAGOGASTRODUODENOSCOPY Start: 08-15-2022 End: 08-15-2022 Esophagogastroduodenoscopy ESOPHAGOGASTRODUODENOSCOPY Pain of upper abdomen Nausea 08/15/2022 11:55 AM EDT [facility] Start: 08-15-2022 Subsequent hospital visit by physician 08/15/2022 Hospital Encounter Tyshawn Santos MD [address] [place] [address] [facility] Start: 08-02-2022 End: 08-02-2022 Patient encounter procedure 08/02/2022 Office Visit Cardiology Day, Roz Jacob MD [address] [place], [place] [address] [place] [address] [facility] Start: 07-19-2022 End: 07-19-2022 Patient encounter procedure 07/19/2022 Office Visit Gastroenterology Debra Adamson, CHIEF OF ANESTHESIOLOGY [address] [place] [address] [facility] Start: 07-08-2022 End: 07-08-2022 Patient encounter procedure 07/08/2022 Office Visit Pulmonology Estrada Garcia MD [address] [address] [facility] Start: 07-07-2022 Influenza vaccination [facility] Start: 07-04-2022 End: 07-04-2022 Patient encounter procedure 07/04/2022 Office Visit Cardiology Day, Roz Jacob MD [address] [place] [address] [facility] Start: 03-30-2022 End: 03-30-2022 Admission to same day surgery center 03/30/2022 Surgery Jada Vargas MD [address] [place] [address] [facility] Comment on above: [facility] Start: 03-30-2022 End: 03-30-2022 [facility] PROCEDURE [facility] Rectal prolapse 03/30/2022 11:15 AM EDT [facility] Start: 03-30-2022 End: 03-30-2022 Admission to same day surgery center 03/30/2022 Surgery Jada Vargas MD 340 [facility] [address] [place] [address] [facility] PROCEDURE [facility] Comment on above: [facility] Start: 03-30-2022 End: 03-30-2022 [facility]IER PROCEDURE [facility] PROCEDURE Rectal prolapse 03/30/2022 9:50 AM EDT [facility] Start: 03-30-2022 Subsequent hospital visit by physician 03/30/2022 Hospital Encounter Jada Vargas MD 340 [facility] [address] [place] [address] [facility] Start: 03-29-2022 End: 03-29-2022 Patient encounter procedure 03/29/2022 Office Visit Pulmonology Estrada Garcia MD [address] [place] [address] [facility] Start: 03-28-2022 End: 03-28-2022 Patient encounter procedure 03/28/2022 Appointment Cardiology Roz Fontenot MD [address] [place] [address] [facility] Start: 03-28-2022 End: 03-28-2022 Patient encounter procedure 03/28/2022 Appointment Cardiology Roz Fontenot MD [address] [place] [address] [facility] Start: 03-22-2022 End: 03-22-2022 Patient encounter procedure 03/22/2022 Office Visit Pre-Admission Testing [facility] Preadmission Testing Start: 03-04-2022 End: 03-04-2022 Patient encounter procedure 03/04/2022 Appointment Cardiology Rusty Dozier MD [address] [address] [facility] Start: 02-25-2022 COVID-19 Vaccine (3 - Booster for Lisa series) COVID-19 Vaccine (3 - Booster for Lisa series) [facility] Start: 02-17-2022 Subsequent hospital visit by physician 02/17/2022 Hospital Encounter Jada Vargas MD [address] [facility] [address] [place] [address] [facility] Start: 01-14-2022 Microalbumin measurement, urine, quantitative Urine Microalbumin [facility] Start: 01-10-2022 End: 01-10-2022 Patient encounter procedure 01/10/2022 Appointment Radiology Estrada Garcia MD [address] [place] [address] [facility] CT Scan Start: 10-08-2021 End: 10-08-2021 Patient encounter procedure 10/08/2021 Office Visit Otolaryngology [place] WalkerChepe ruffin CNP [address] [place] [address] [facility] Start: 08-16-2021 End: 08-16-2021 Patient encounter procedure 08/16/2021 Appointment Radiology Jonathan Rutherford CNP [address] [place] [address] [facility] Start: 08-04-2021 End: 08-04-2021 Patient encounter procedure 08/04/2021 Office Visit Otolaryngology Chepe [facility]in C[facility] [address] [facility] [address] [place] [address] [facility] Start: 08-03-2021 End: 08-03-2021 Patient encounter procedure 08/03/2021 Office Visit General Surgery Jada Vargas MD 285 [facility] [address] [place] [address] [facility] Start: 08-02-2021 End: 08-02-2021 Patient encounter procedure 08/02/2021 Appointment Radiology Jonathan Rutherford, CHIEF OF ANESTHESIOLOGY [address] [place] [address] [facility] Start: 07-07-2021 Influenza vaccination Sequential Influenza Vaccine (#1) [facility] Start: 06-08-2021 End: 06-08-2021 Patient encounter procedure 06/08/2021 Appointment Radiology [facility] Start: 04-26-2021 [email or web address], Provider: River Sweeney, Status: Pen, Time: 4:15 PM PTFUADULT4, Provider: River Sweeney, Status: Pen, Time: 4:[address] Work [facility]: Start: 04-23-2021 PTFUADULT4, Provider: Elana Westbrook, Status: Pen, Time: 3:45 PM PTFUADULT4, Provider: Elana Westbrook, Status: Pen, Time: 3:45 PM [facility] Work Phone: Start: 04-21-2021 PTFUADULT4, Provider: lEi Alexander, Status: Pen, Time: 4:15 PM PTFUADULT4, Provider: Eli Alexander, Status: Pen, Time: 4:15 PM [facility] Work Phone: Start: 2021 PTRECHADUL, Provider: Elana Westbrook, Status: Pen, Time: 4:00 PM PTRECHADWICHO, Provider: Elana Westbrook, Status: Pen, Time: 4:[address] Work Phone: Start: 04-15-2021 End: 04-14-2022 Basic metabolic 1998 panel - Serum or Plasma Chem 7 Lab Routine Expected: 04/15/2021, Expires: 04/14/2022 [facility] Comment on above: Expected: 04/15/2021, Expires: 2 Start: 04-15-2021 End: 04-14-2022 Creatine kinase [Enzymatic activity/volume] in Serum or Plasma CPK NO MB Lab Routine Expected: 04/15/2021, Expires: 04/14/2022 [facility] Comment on above: Expected: 04/15/2021, Expires: 2 Start: 04-14-2021 PTFUADULT4, Provider: DavidFebruary, Status: Pen, Time: 4:30 PM PTFUADULT4, Provider: DavidFebruary, Status: Pen, Time: 4:[address] Work Phone: Start: 04-12-2021 PTFUADULT4, Provider: DavidFebruary, Status: Pen, Time: 4:30 PM PTFUADULT4, Provider: DavidFebruary, Status: Pen, Time: 4:30 PM [facility] Work Phone: Start: 04-09-2021 PTFUADULT4, Provider: Eli Alexander, Status: Pen, Time: 4:15 PM PTFUADULT4, Provider: Eli Alexander, Status: Pen, Time: 4:15 PM [facility] Work Phone: Start: 11-24-2020 End: 11-24-2020 Procedure visit 11/24/2020 Procedure visit Neurology Rusty Dozier MD [address] [address] [phone] Eugenia Conte MD [address] [facility] [place] [address] [phone] [facility] Start: 10-12-2020 End: 10-12-2020 Procedure visit 10/12/2020 Procedure visit Neurology Eugenia Conte MD [address] [address] [phone] [facility] Start: 07-07-2020 Influenza vaccination given Sequential Influenza Vacci ne (#1) [facility] Start: 07-07-2019 Influenza vaccination INFLUENZA VACCINE (Season Ended) [facility] Start: 07-07-2019 Influenza vaccination given [facility] Start: 04-19-2019 End: 04-19-2019 Appointment 04/19/2019 Appointment Cardiology Whitley Martinez MD [address] [place] [address] [phone] [facility] Start: 04-10-2019 End: 04-10-2019 Appointment 04/10/2019 Appointment Radiology Rusty Dozier MD [address] [place] [address] [phone] [facility] Start: 01-30-2019 Pneumococcal Vaccine: Age 50+ (2 of 2 - PCV) Pneumococcal Vaccine: Age 50+ (2 of 2 - PCV) [facility] Start: 01-30-2019 Pneumococcal Vaccine: Age 65+ (2 - PCV) Pneumococcal Vaccine: Age 65+ (2 - PCV) [facility] Start: 01-30-2019 Pneumococcal Vaccine: Age 65+ (2 of 2 - PCV) Pneumococcal Vaccine: Age 65+ (2 of 2 - PCV) [facility] Start: 01-30-2019 Pneumococcal Vaccine: Ped or At-Risk (2 - PCV) Pneumococcal Vaccine: Ped or At-Risk (2 - PCV) [facility] Start: 01-30-2019 Pneumococcal Vaccine: Ped or At-Risk (2 of 4 - PCV13) Pneumococcal Vaccine: Ped or At-Risk (2 of 4 - PCV13) [facility] Start: 07-07-2018 Influenza vaccination SEQUENTIAL INFLUENZA VACCINE (#1) [facility] Start: 2018 HEPATITIS B VACCINES (1 of 3 - Risk 3-dose series) HEPATITIS B VACCINES (1 of 3 - Risk 3-dose series) [facility] Start: 2018 Respiratory Syncytial Virus Immunization: Risk, 60-74 Risk, or 75+ (1 - Risk 60-74 years 1-dose series) Respiratory Syncytial Virus Immunization: Risk, 60-74 Risk, or 75+ (1 - Risk 60-74 years 1-dose series) [facility] Start: 2018 RSV Immunization (1 - Risk 60-74 years 1-dose series) RSV Immunization (1 - Risk 60-74 years 1-dose series) [facility] Start: 10-04-2017 Ambulatory 10/04/2017 Office Visit Sports Medicine Vaibhav Naranjo MD [address] [facility] [address] [place] [address] [phone] [facility] [place] Start: 07-07-2017 Influenza vaccination SEQUENTIAL INFLUENZA VACCINE (#1) [facility] Work Phone: Start: 07-07-2017 SEQUENTIAL INFLUENZA VACCINE (#1) SEQUENTIAL INFLUENZA VACCINE (#1) [facility] Work Phone: Start: 07-05-2017 Protein mass conc Mammogram [facility] Start: 07-05-2017 Screening for malignant neoplasm of breast Mammogram [facility] Start: 07-05-2017 Screening mammography Mammogram [facility] Start: 07-04-2017 Ambulatory [facility] Start: 2008 Administration of herpes zoster vaccine Zoster Vaccines (1 of 2) [facility] Start: 2008 Pneumococcal Vaccine: 50+ Years (1 of 1 - PCV) Pneumococcal Vaccine: 50+ Years (1 of 1 - PCV) [facility] Start: 2008 Protein mass conc COLON CANCER SCREENING DISCUSSION [facility] Start: 2008 Screening for malignant neoplasm of colon [facility] Start: 2008 Zoster vaccine hzv live for subcutaneous use ZOSTER (SHINGLES) VACCINE (1 of 2) [facility] Start: 2008 ZOSTER VACCINES (1 of 2) ZOSTER VACCINES (1 of 2) [facility] Start: 1998 Fasting lipid profile LIPID SCREENING [facility] Start: 1998 Protein mass conc MAMMOGRAM SCREENING DISCUSSION [facility] Start: 1979 Screening for malignant neoplasm of cervix PAP SMEAR DISCUSSION [facility] Start: 1977 Administration of herpes zoster vaccine Zoster Vaccines (1 of 2) [facility] Start: 1977 Shingles Vaccine (1 of 2) Shingles Vaccine (1 of 2) [facility] Start: 1977 Third diphtheria, tetanus and acellular pertussis (DTaP) vaccination TDAP (ADULT) [facility] Start: 1976 Hepatitis C antibody, confirmatory test Hepatitis C Screening [facility] Start: 1976 Hepatitis C screening Hepatitis C Screening [facility] Start: 1976 Tetanus vaccination TETANUS [facility] Start: 1974 COVID-19 Vaccine (1 of 2) COVID-19 Vaccine (1 of 2) [facility] Start: 1973 HIV screening HIV Screening [facility] Start: 1971 HIV screening HIV SCREENING DISCUSSION [facility] Start: 1971 Varicella Vaccine (1 of 2 - 13+ 2-dose series) Varicella Vaccine (1 of 2 - 13+ 2-dose series) [facility] Start: 1970 Adolescent depression screening assessment Depression Screening (PHQ9) [facility] Start: 1970 COVID-19 Vaccine (1) COVID-19 Vaccine (1) [facility] Start: 1970 Depression screening using PHQ-9 (Patient Health Questionnaire 9) score [facility] Start: 1968 Diabetic foot examination [facility] Start: 1968 Glaucoma screening [facility] Start: 1968 Ophthalmic examination and evaluation Ophthalmology Exam [facility] Start: 1968 Urine screening for protein Urine (micro)albumin/creatinine ratio - Kidney Disease [facility] Start: 1968 Urine, microalbumin URINE MICROALBUMIN [facility] Start: 1965 DTaP/Tdap/Td Vaccine (1 - Tdap) DTaP/Tdap/Td Vaccine (1 - Tdap) [facility] Start: 1965 DTaP/Tdap/Td VACCINES (1 - Tdap) DTaP/Tdap/Td VACCINES (1 - Tdap) [facility] Start: 1964 Pneumococcal vaccination [facility] Start: 1964 Pneumococcal Vaccine: 65+ Years (1 - PCV) Pneumococcal Vaccine: 65+ Years (1 - PCV) [facility] Start: 1964 Pneumococcal Vaccine: 65+ Years (1 of 2 - PCV) Pneumococcal Vaccine: 65+ Years (1 of 2 - PCV) [facility] Start: 1964 Pneumococcal Vaccine: Ped or At-Risk (1 of 4 - PCV13) Pneumococcal Vaccine: Ped or At-Risk (1 of 4 - PCV13) [facility] Start: 1961 History and physical examination, annual for health maintenance Wellness Visit [facility] Start: 1961 Medicare Wellness Visit Medicare Wellness Visit [facility] Start: 1959 MMR Vaccine (1 of 1 - Standard series) MMR Vaccine (1 of 1 - Standard series) [facility] Start: 1959 MMR VACCINES (1 of 1 - Standard series) MMR VACCINES (1 of 1 - Standard series) [facility] Start: 1959 VARICELLA VACCINES (1 of 2 - 2-dose childhood series) VARICELLA VACCINES (1 of 2 - 2-dose childhood series) [facility] Start: 1958 COVID-19 Vaccine (#1) COVID-19 Vaccine (#1) [facility] Start: 1958 Depression screening using PHQ-9 (Patient Health Questionnaire 9) score Depression Screening (PHQ9) [facility] Start: 1958 Hemoglobin A1c measurement A1C [facility] Start: 1958 Hepatitis C antibody, confirmatory test [facility] Start: 1958 Screening for malignant neoplasm of colon [facility] Start: 1958 Screening for malignant neoplasm of lung Low-dose CT Lung Cancer Screen [facility] Start: 1958 Screening for osteoporosis Dexa Scan [facility] Start: 1958 Thyrotropin Qn TSH [facility] Start: 1958 Colonoscopy COLONOSCOPY [facility] Work Phone: Start: 1958 Cytopathology procedure, preparation of smear, genital source PAP SMEAR [facility] Work Phone: Start: 1958 HEPATITIS C SCREENING HEPATITIS C SCREENING [facility] Work Phone: Start: 1958 Screening colonoscopy COLONOSCOPY [facility] Work Phone: Start: 1958 End: 1958 Screening for malignant neoplasm of cervix PAP SMEAR [facility] Start: 1958 TETANUS EVERY 10 YR TETANUS EVERY 10 YR [facility] Work Phone: Start: 1958 End: 1958 Tetanus vaccination [facility] End: 03-08-2023 12 lead ECG ECG 12 Lead ECG Routine Rectal prolapse Preoperative testing 1 Occurrences starting 03/08/2022 until 03/08/2023 [facility] Comment on above: 1 Occurrences starting 03/08/2022 until 03/08/2023 End: 09-16-2028 12 lead ECG ECG 12 Lead ECG Routine NSVT (nonsustained ventricular tachycardia) ([facility]) 15 Occurrences starting 09/16/2024 until 09/16/2028 [facility] Work Phone: Comment on above: 15 Occurrences starting 09/16/2024 until 09/16/2028 12 lead ECG ECG 12 Lead ECG Routine NSVT (nonsustained ventricular tachycardia) ([facility]) 09/18/2024 1:09 PM EST [facility] 6-minute walk test 6 minute walk PFT Routine Chronic obstructive pulmonary disease, unspecified COPD type ([facility]) 12/30/2021 12:00 PM EST [facility] Acylcarnitine panel - Serum or Plasma ACYLCARNITINES, QUANTITATIVE, PLASMA & SERUM Lab Routine CPT2 deficiency 07/23/2025 3:46 PM EDT [facility] Alanine aminotransfe rase [Enzymatic activity/volume] in Serum or Plasma [facility] Albumin [Mass/volume ] in Serum or Plasma [facility] Albumin [Moles/volum e] in Serum or Plasma [facility] Albumin/Globulin ratio [facility] Alkaline phosphatase [Enzymatic activity/volume] in Serum or Plasma [facility] ALTEMEIER PROCEDURE ALTEMEIER [place] OCEDURE Rectal prolapse [facility] Ambulatory ECG Event Monitor Amb ulatory ECG Event Monitor Cardiac Services Routine Ventricular tachycardia (HCC) Palpitations NSVT (nonsustained ventricular tachycardia) (HCC) Ordered: 09/18/2024 [facility] Comment on above: Ordered: 09/18/2024 Ambulatory ECG Event Monitor Amb ulatory ECG Event Monitor Cardiac Services Routine Ventricular tachycardia (HCC) Palpitations NSVT (nonsustained ventricular tachycardia) (HCC) Ordered: 10/23/2024 [facility] Work Phone: Comment on above: Ordered: 10/23/2024 Anion gap in Serum or Plasma [facility] Anion gap measurement [facility] Ankle brachial pressure index [facility] Work Phone: Ankle brachial pressure index [facility] Aspartate aminotrans ferase [Enzymatic activity/volume] in Serum or Plasma [facility] Bacteria identified in Blood by Culture Blood Culture Aerobic/Anaerobic Microbiology Routine 09/02/2024 11:39 AM EDT [facility] Work Phone: Bacteria identified in Blood by Culture [facility] Work Phone: Bacteria identified in Blood by Culture Blood Culture Aerobic/Anaerobic Microbiology ABDELRAHMAN 02/13/2025 5:53 PM EDT [facility] Work Phone: Bilirubin, total measurement [facility] BUN/Creatinine ratio [facility] BUN/Creatinine ratio [facility] Calcium [Mass/volume ] in Serum or Plasma [facility] Calcium [Mass/volume ] in Serum or Plasma [facility] Carbon dioxide, tota l [Moles/volume] in Central venous blood [facility] Carbon dioxide, tota l [Moles/volume] in Serum or Plasma [facility] End: 03-08-2023 CBC panel - Blood by Automated count CBC Lab Routine Rectal prolapse Preoperative testing 1 Occurrences starting 03/08/2022 until 03/08/2023 [facility] Work Phone: Comment on above: 1 Occurrences starting 03/08/2022 until 03/08/2023 Chloride [Moles/volu me] in Serum or Plasma [facility] Colonoscopy COLONOSCOPY Hx o f colonic polyps [facility] End: 03-08-2023 Comprehensive metabolic 2000 panel - Serum or Plasma Comprehensive metabolic panel Lab Routine Rectal prolapse Preoperative testing 1 Occurrences starting 03/08/2022 until 03/08/2023 [facility] Comment on above: 1 Occurrences starting 03/08/2022 until 03/08/2023 Creatinine [Mass/vol ume] in Serum or Plasma [facility] Creatinine [Moles/vo lume] in Serum or Plasma [facility] CT Chest [facility] CT Chest [facility] DXA Bone [Mass/Area] Bone density [facility] End: 04-05-2020 Echocardiography Echocardiogram complete Echocardiography Routine Abnormal electrocardiogram Cardiomyopathy, unspecified type (HCC) Hypertension, unspecified type 1 Occurrences starting 04/05/2019 until 04/05/2020 [facility] Comment on above: 1 Occurrences starting 04/05/2019 until 04/05/2020 Elastase, pancreatic (el-1), fecal; quantitative [facility] Electrophoresis: [id number] [facility] Electrophoresis: tanja ma globulin [facility] Exercise tolerance test [facility] Globulin measurement [facility] Glucose [Mass/volume ] in Serum or Plasma [facility] Glucose [Mass/volume ] in Serum or Plasma [facility] IgA [Mass/volume] in Serum or Plasma [facility] IgG [Mass/volume] in Serum or Plasma [facility] IgM [Mass/volume] in Serum or Plasma [facility] End: 03-08-2023 INR in Platelet poor plasma by Coagulation assay PT/INR Lab Routine Rectal prolapse Preoperative testing Abdominal pain, unspecified abdominal location 1 Occurrences starting 03/08/2022 until 03/08/2023 [facility] Comment on above: 1 Occurrences starting 03/08/2022 until 03/08/2023 [place]/lambda light c bud ratio [facility] Work Phone: [place]/lambda light c bud ratio [facility] Lambda light chains. free [Mass/volume] in Serum or Plasma [facility] Work Phone: Lambda light chains. free [Mass/volume] in Serum or Plasma [facility] End: 12-30-2022 Low dose computed tomography of thorax CT Lung Cancer Screening Imaging Routine Screening for lung cancer Chronic obstructive pulmonary disease, unspecified COPD type (HCC) 1 Occurrences starting 12/30/2021 until 12/30/2022 [facility] Work Phone: Comment on above: 1 Occurrences starting 12/30/2021 until 12/30/2022 Magnesium measurement [facility] Measurement of immun oglobulin A in serum specimen [facility] Measurement of renal function [facility] Measurement of renal function [facility] Measurement of respi ratory function [facility] MG Breast - bilatera l Screening [facility] MR Cervical spine [facility] Work Phone: MR Cervical spine [facility] MR Cervical spine [facility] End: 09-18-2025 MR Heart WO and W contrast IV MR Cardiac Morphology Wi th And Without Contrast Without velocity flow Imaging Routine Ventricular tachycardia (HCC) Palpitations NSVT (nonsustained ventricular tachycardia) ([facility]) 1 Occurrences starting 09/18/2024 until 09/18/2025 [facility] Work Phone: Comment on above: 1 Occurrences starting 09/18/2024 until 09/18/2025 End: 04-10-2019 MR Hip Right Without Contrast MR Hip Right Without Contrast Imaging Routine Right hip pain Once for 1 Occurrences starting 04/10/2019 until 04/10/2019 [facility] Comment on above: Once for 1 Occurrences starting 04/10/20 until 04/10/2019 MR Hip Right Without Contrast MR Hip Right Without Contrast Imaging Routine Right hip pain 04/10/2019 1:54 PM EDT [facility] MR Lower Extremity Joint [facility] MRI of cervical spine MRI SPINE CERVICAL WITHOUT CONTRAST Imaging Routine Cervical spine disease Ordered: 08/24/2016 [facility] Comment on above: Ordered: 08/24/2016 MRI of lower extremity MRI LONG BONE NEUROGRAPHY LOWER EXTREMITY LEFT Imaging Routine Myopathy Ordered: 08/24/2016 [facility] Comment on above: Ordered: 08/24/2016 MRI of lumbar spine MRI SPINE ANIL MBAR WITHOUT CONTRAST Imaging Routine Osteoarthritis of spine with radiculopathy, lumbar region Ordered: 08/24/2016 [facility] Comment on above: Ordered: 08/24/2016 Myoglobin [Presence] in Urine My oglobin, Urine Lab STAT 04/14/2021 4:26 PM EDT [facility] Patient Education ED Neck Pain E D Neck Spasm, No Trauma [facility] Work Phone: Patient referral [facility] Work Phone: Polysomnography [facility] Potassium [Moles/vol ume] in Serum or Plasma [facility] Potassium measurement [facility] Procedure on tissue specimen [facility] Work Phone: Comment on above: Release Upon Ordering for 1 Occurrences starting 03/30/2022, 1 completed Protein electrophore sis panel - Serum or Plasma [facility] Serum chloride measurement [facility] Sodium [Moles/volume ] in Serum or Plasma [facility] Sodium measurement [facility] End: 07-08-2023 Standard chest X-ray XR Chest AP/PA and LAT Imaging Routine COPD exacerbation (HCC) 1 Occurrences starting 07/08/2022 until 07/08/2023 [facility] Work Phone: Comment on above: 1 Occurrences starting 07/08/2022 until 07/08/2023 Thiamine measurement [facility] Work Phone: Thyroid stimulating hormone measurement [facility] Tissue transglutamin ase IgA Ab [Units/volume] in Serum [facility] Total protein measurement [facility] Ultrasound Duplex Ve nous Leg RIGHT Ultrasound Duplex Venous Leg RIGHT Vascular Ultrasound ABDELRAHMAN 11/02/2020 3:21 PM EST [facility] Urea nitrogen [Mass/ volume] in Serum or Plasma [facility] Urea nitrogen [Mass/ volume] in Serum or Plasma [facility] Urine kappa light ch ain measurement [facility] Work Phone: Urine kappa light ch ain measurement [facility] US Thyroid gland [facility] Walking distance 6 minutes [facility] End: 10-06-2024 XR Hand - left 2 Views XR Hand Left 2 Views Imaging Routine Pain 1 Occurrences starting 10/06/2023 until 10/06/2024 [facility] Work Phone: Comment on above: 1 Occurrences starting 10/06/2023 until 10/06/2024 End: 09-02-2025 XR Knee - bilateral AP and Lateral W standing XR Knees Standing Bilateral AP/ LAT Imaging Routine Pain 1 Occurrences starting 09/02/2024 until 09/02/2025 [facility] Work Phone: Comment on above: 1 Occurrences starting 09/02/2024 until 09/02/2025 [facility] Immunizations Immunization Date Immunization Notes Care Provider Fa [facility] 09-03-2024 influenza, high dose seasonal, preservative-free Ramírez Cunningham MD Work Phone: [facility] 09-03-2024 influenza virus vacc ine, unspecified formulation Meliza Rust [facility] 10-17-2023 Covid (Spikevax) Dr. Jennifer Gordon Work Phone: [facility] 10-17-2023 influenza, injectabl e, quadrivalent, preservative free Dr. Jennifer Gordon Work Phone: [facility] 10-17-2023 influenza virus vacc ine, unspecified formulation Rivas Jules MD Work Phone: [facility] 10-14-2022 Covid Moderna Bivale nt Booster Dr. Jennifer Gordon Work Phone: [facility] 10-14-2022 Influenza, high dose seasonal Dr. Jennifer Gordon MD Work Phone: [facility] 10-14-2022 influenza, high dose seasonal, preservative-free MANAGER SCHEDULING-C Jonathan Rutherford MANAGER SCHEDULING Work Phone: [facility] 10-14-2022 influenza, injectabl e, quadrivalent, preservative free Dr. Jennifer Gordon Work Phone: [facility] 10-14-2022 influenza virus vacc ine, unspecified formulation Provider System [facility] 10-27-2021 Covid (Moderna) MANAGER SCHEDULING-C Jonathan Gallegoer MANAGER SCHEDULING Work Phone: [facility] 10-13-2021 influenza, injectabl e, quadrivalent, preservative free Dr. Jennifer Gordon Work Phone: [facility] 10-13-2021 influenza, seasonal, injectable MANAGER SCHEDULING-C Jonathan Helvaleriaer MANAGER SCHEDULING Work Phone: [facility] 01-08-2021 Covid (Augie & Augie) MANAGER SCHEDULING-C Jonathan Hellinger MANAGER SCHEDULING Work Phone: [facility] 08-20-2020 influenza, injectabl e, quadrivalent, preservative free Dr. Jennifer Gordon Work Phone: [facility] 08-20-2020 influenza, seasonal, injectable MANAGER SCHEDULING-C Jonathan Hellinger MANAGER SCHEDULING Work Phone: [facility] 08-13-2019 Influenza, high dose seasonal Dr. Jennifer Gordon MD Work Phone: [facility] 08-13-2019 influenza, high dose seasonal, preservative-free MANAGER SCHEDULING-C Jonathan Gallegoer MANAGER SCHEDULING Work Phone: [facility] 09-17-2018 influenza, injectabl e, quadrivalent, preservative free Dr. Jennifer Gordon Work Phone: [facility] 09-17-2018 influenza, seasonal, injectable MANAGER SCHEDULING-C Jonathan Gallegoer MANAGER SCHEDULING Work Phone: [facility] 01-30-2018 pneumococcal polysaccharide vaccine, 23 valent MANAGER SCHEDULING-C Jonathan Gallegoer MANAGER SCHEDULING Work Phone: [facility] 09-18-2017 influenza, injectabl e, quadrivalent, preservative free Dr. Jennifer Gordon Work Phone: [facility] 09-18-2017 influenza, seasonal, injectable MANAGER SCHEDULING-C Jonathan Gallegoer MANAGER SCHEDULING Work Phone: [facility] 09-18-2017 influenza, seasonal, injectable, preservative free [facility] 09-18-2017 Seasonal, quadrivale nt, recombinant, injectable influenza vaccine, preservative free Dr. Jennifer Gordon Work Phone: [facility] 09-18-2017 influenza virus vacc ine, unspecified formulation [facility] 11-14-2016 influenza, injectabl e, quadrivalent, preservative free Dr. Jennifer Gordon Work Phone: [facility] 11-14-2016 influenza, seasonal, injectable MANAGER SCHEDULING-C Jonathan Gallegoer MANAGER SCHEDULING Work Phone: [facility] 11-14-2016 influenza, seasonal, injectable, preservative free [facility] 11-14-2016 Seasonal, quadrivale nt, recombinant, injectable influenza vaccine, preservative free Dr. Jennifer Gordon Work Phone: [facility] 01-18-2016 influenza, injectabl e, quadrivalent, preservative free Dr. Jennifer Gordon Work Phone: [facility] 01-18-2016 influenza, seasonal, injectable MANAGER SCHEDULING-C Jonathan Rutherford MANAGER SCHEDULING Work Phone: [facility] 01-18-2016 influenza, seasonal, injectable, preservative free Dr. Jennifer Gordon MD Work Phone: [facility] 01-18-2016 Seasonal, quadrivale nt, recombinant, injectable influenza vaccine, preservative free Dr. Jennifer Gordon Work Phone: [facility] Payers Date Payer Category Payer Self-pay [id number] 2020 Medicaid [id number] 2020 Medicare Managed Car e (unspecified) [facility] DUAL COMPLETE (O SNP) [id number] 2020 Private Health Insurance [id number] 2020 Unknown [id number] 2019 Medicaid [id number]. 1.13.385. [id number] 2019 Medicaid [id number] 2.16.840.1.596666.3.249. 13 2016 Medicaid [id number] 2.16.840.1.107643.3.249. 13 2016 Medicaid MEDICAID [facility] [id number] 2016-Present [id number]. 2.7.3.180225.315 2013 Medicare [id number] 2.16.840.1.810726.3.249. 13 2013 Medicare HUMANA MANAGED M EDICARE HUMANA MCR ADVANTAGE CHOICE PPO [id number] 2013-Present [id number] 1.2.840.967354.1.13.385. 2.7.3.604475.315 2009 Medicare 1.2.840.027919. 1.13.385. 2.7.3.804884.315 2009 Medicare [id number] 1960 Unknown [id number] 2.16.840.1.559654.3.579. 2.356 1958 Unknown [id number] 2.16.840.1.265059.3.579. 2.356 1958 Unknown [id number] 2.16.840.1.633153.3.579. 2.356 1958 Unknown [id number] 2.16.840.1.035388.3.579. 2.903 1958 Unknown [id number] 2.16.840.1.237782.3.579. 2.903 1958 Unknown [id number] 2.16.840.1.937160.3.579. 2.903 1958 Unknown [id number] 2.16.840.1.082570.3.579. 2.903 1958 Unknown [id number] 2.16.840.1.620006.3.579. 2.903 1958 Unknown [id number] 2.16.840.1.819714.3.579. 2.430 1958 Unknown [id number] 2.16.840.1.172487.3.579. 2.430 1958 Unknown [id number] 2.16.840.1.060894.3.579. 2.430 1958 Unknown [id number] 2.16.840.1.526867.3.579. 2.430 1958 Unknown [id number] 2.16.840.1.904946.3.579. 2. 1960 Unknown [id number] 2.16.840.1.643565.3.579. 2.3 1958 Unknown [id number] 2.840.1.814252.3.579. 2. 1958 Unknown [id number] 2.16840.1.636471.3.579. 2.3 1958 Unknown [id number] 2.16840.1.940694.3.579. 2.3 1958 Unknown [id number] 2.16.840.1.015843.3.579. 2.903 Medicare [id number] 2.16840.1.398526.3.249. 13 Medicaid [id number] Unknown Unknown [id number] 2.16.840.1.952748.3.579. 2.462 Unknown [id number] 2.16.840.1.401020.3.579. 2.462 Unknown [id number] 2.16.840.1.755645.3.579. 2.462 Unknown [id number] 2.16.840.1.926469.3.579. 2.462 Unknown [id number] 2.16.840.1.908285.3.579. 2.462 Unknown [id number] 2.16.840.1.363755.3.579. 2.462 Unknown [id number] 2.16.840.1.353410.3.579. 2.462 Unknown [id number] 2.16.840.1.176837.3.579. 2.462 Unknown [id number] 2.16840.1.038577.3.579. 2.462 Unknown [id number] 2.16840.1.311274.3.579. 2.462 Unknown [id number] 2.840.1.686166.3.579. 2.462 Unknown [id number] 2.840.1.305819.3.579. 2.462 Unknown [id number] 2.840.1.322556.3.579. 2.462 Unknown [id number] 2.840.1.828258.3.579. 2.462 Unknown [id number] 2.840.1.108056.3.579. 2.462 Unknown [id number] 2.840.1.508478.3.579. 2.462 Unknown [id number] 2.840.1.020425.3.579. 2.462 Unknown [id number] 2.840.1.485455.3.579. 2.462 Unknown [id number] 2.840.1.521761.3.579. 2.462 Unknown [id number] 2.16840.1.767618.3.579. 2.462 Unknown [id number] 2.16840.1.722824.3.579. 2.462 Unknown [id number] 2.16840.1.633819.3.579. 2.462 Unknown [id number] 2.16840.1.618732.3.579. 2.462 Unknown [id number] 2.16.840.1.170291.3.579. 2.462 Unknown [id number] 2.16.840.1.961197.3.579. 2.462 Unknown [id number] 2.16.840.1.614894.3.579. 2.462 Unknown [id number] 2.16.840.1.621520.3.579. 2.462 Unknown [id number] 2.16.840.1.407827.3.579. 2.462 Unknown [id number] 2.16.840.1.951616.3.579. 2.462 Unknown [id number] 2.16.840.1.564815.3.579. 2.462 Unknown [id number] 2.16.840.1.887576.3.579. 2.462 Unknown [id number] 2.16.840.1.369987.3.579. 2.462 Unknown [id number] 2.16.840.1.684647.3.579. 2.462 Social History Date Type Detail Facility Start: 11-14-2016 End: 07-04-2017 Tobacco smoking status MOIS Former smoker [facility] Work Phone: Start: 07-10-1993 End: 07-10-2013 History of tobacco use Current smoker [facility] Work Phone: Start: 07-04-2017 End: 06-03-2024 Cigarettes smoked current (pack per day) - Reported [facility] Start: 1960 Sex Assigned At Not on file [facility] Work Phone: Start: 07-10-1993 End: 07-10-2013 History of tobacco use Cigarette Smoker [facility] Start: 05-07-2019 End: 07-23-2025 Alcohol intake Current non-drinker of alcohol (finding) [facility] Start: 11-14-2016 End: 09-15-2020 Tobacco use and exposure Never used [facility] Start: 12-17-2021 End: 07-19-2022 Exposure to SARS-CoV-2 (event) Not sure [facility] Start: 10-06-2022 End: 02-27-2024 Tobacco smoking status NHIS Unknown if ever smoked [facility] Start: 1960 Sex Assigned At Female [facility] Start: 02-13-2023 History SDOH Financial 2 [facility] Start: 02-13-2023 History SDOH Food Worry 1 [facility] Child osiel[facility] Start: 02-13-2023 History SDOH Food Scarcity 98 [facility] Start: 11-10-2022 End: 06-03-2024 Tobacco use panel [facility] Start: 10-14-2016 Adult Depression Screening Assessment 0 [facility] Start: 05-18-2018 Gender identity Identifies as female gender (finding) [facility] Start: 05-07-2019 Sexual orientation Heterosexual (finding) [facility] How hard is it for y ou to pay for the very basics like food, housing, medical care, and heating Hard [facility] (I/We) worried kaylee er (my/our) food would run out before (I/we) got money to buy more. Never true [facility] The food that (I/we) bought just didn't last, and (I/we) didn't have money to get more. DK or Refused [facility] In the past 12 month s, was there a time when you were not able to pay the mortgage or rent on time? No [facility] In the past 12 month s, was there a time when you were not able to pay the mortgage or rent on time? Yes [facility] How hard is it for y ou to pay for the very basics like food, housing, medical care, and heating Somewhat hard [facility] Start: 01-23-2025 End: 02-05-2025 Sex Female (finding) [facility] Goals Date Patient Goal Desired Activity /State Functional Status Date Assessment Result Facility 07-20-2025 Functional status Ambulates [facility] Work Phone: Mental Status Date Assessment Result Facility 07-20-2025 Cognitive function Voice/Name [facility] Work Phone: 07-17-2025 Cognitive function Level Of Cons ciousness Awake;Alert;Appropriate;Follow s Commands [facility] Work Phone: 01-01-2025 Cognitive function Level Of Cons ciousness Awake;Alert;Appropriate;Follow s Commands [facility] Work Phone: Clinical Notes 03-15-2021 to 08-28-2025 Telephone Encounter - Garland Kumar RD, LD - 08/28/2025 1:13 PM EDTTelephone Encounter - Garland Kumar RD, LD - 08/28/2025 1:13 PM EDTTelephone Encounter - Garland Kumar RD, LD - 08/27/2025 2:11 PM EDT Note Date & Type Note Facility 08-28-2025 Telephone encounter Note Called Radah to let her know [facility] is trying to reach her to setup formula delivery. FWD [phone] is Ali from [facility] 08-28-2025 Miscellaneous Notes Called Radha to let her know [facility] is trying to reach her to setup formula delivery. [facility] [phone] is Ali from [facility] documented in this encounter [facility] 08-27-2025 Telephone encounter Note Reached out to Radha because [facility] is trying to get in touch with her. No Answer left VM with RD callback number [facility] 08-27-2025 Miscellaneous Notes Reached out to Radha because [facility] is trying to get in touch with her. No Answer left VM with RD callback number documented in this encounter [facility] 08-07-2025 Telephone encounter Note Pharmacy called Eileen Badillo wanted to see if the patient was goint to put back on Dojolvi. [facility] 08-07-2025 Miscellaneous Notes Pharmacy called Eileen Badillo wanted to see if the patient was goint to put back on Dojolvi. documented in this encounter [facility] 08-05-2025 History of Presen t illness Narrative Attached media from the original note were not included. CMN and clinic notes securely faxed to [employer]. @ documented in this encounter [facility] 07-23-2025 History of Presen t illness Narrative Nutrition Follow up Assessment: Radha Shafer is a 65 year old female with Patient Active Problem List Diagnosis Muscle pain Muscle weakness (generalized) CPT2 deficiency Chronic renal failure syndrome, stage 3 (moderate) COPD (chronic obstructive pulmonary disease) Hypertension Depression Percentiles from [facility]-Normal growth charts. Weight: 99.6 kg (219 lb [...] note recent weight loss. Caregiver/Learner Assessment: Radha Shaefr asked appropriate nutrition related questions and appeared [...] developed and its performance characteristics determined by [facility]. It has not been cleared or approved [...] 0 calories 0 protein Estimated energy needs: 9773-6027 kcals/day (based on EER for age and [...] or concerns call Garland Kumar RD, ZAC [phone] Miguel Hyman. Follow-Up: Recommend Radhamary ellen Alexanderrayne return to [facility] per MD recommendations. Total Patient Care Time: 30 minutes in direct patient care; [address], ZAC [facility] [address] [facility] [address] [place] [phone] DATE (TIME): 07/23/2025 PATIENT: Radha Shafer : 1960 PARENTS: fathers name not listed mothers name not listed Radha Shafer [address] [facility] [address] REFERRING PROVIDER: No referring provider defined for this encounter. PRIMARY-CARE PROVIDER: Andre Martinez MD [address] [place] [address] Impression/Recommendations: Radha Shafer is a 65 year old [...] PCP even if it requires driving to [place]. I will have to investigate possible options [...] Please see additional note from our metabolic special service officer, Garland Kumar RD, LD, for detailed dietary [...] her CPT2 and muscle issues worse. Her non linear editor is also concerned. She feels her fatigue sets in after only 5-10 minutes. She is now on oxygen but did get off CPAP overnight. They are reporting weight loss and poor eating habits. Additional history was obtained from the available records. The patient was seen along with our metabolic special service officer, Garland Kumar RD, LD. Radha is doing [...] developed and its performance characteristics determined by [facility]. It has not been cleared or approved [...] tests, or procedures Referring/communicating with other health healthcare sales representative Independently interpreting results and communicating results to the patient/family/caregiver Care-coordination Thank you for including us in the care of this patient. Emmett Hyman MD documented in this encounter [facility] 07-23-2025 Instructions Emmett Hyman MD - 07/23/2025 1:45 PM EDT It was a pleasure to see y'all today! I am sorry to hear about the worsening symptoms. We will see if the MCT can help and then also get you referred to hematology at [facility] for follow up of your anemia. Follow up with us in 1 year. documented in this encounter [facility] 07-20-2025 Discharge summary Note Date/Time July 20, 2025 11:27am [facility] Medical Records Department [address] [place] [address] Discharge Summary 07/20/25 0907 MR#: [id number] Acct: [id number] Name: RADHA SAHFER Rep #:[id number] : [id number] 65 From: Vincent Perdomo PCP: Dr. Jennifer Gordon MD Status:ADM IN Location: [place] [address] Providers Date of Admission: 07/17/25 Date of [...] in her 30s ? She sees a frame runner at [facility] ? 07/20: She completed D10 half-normal saline. [...] (2,000 unit) capsule 50 mcg PO DAILY [id number] ferrous sulfate 325 mg (65 mg iron) [...] cholesterol #90 tabs 07/17/25 OXYGEN - Supplemental ([facility] INFORMATIONAL USE ONLY) 07/18/25 Physical Exam Narrative Seen and examined. Patient stated her myalgia/muscle pain has resolved. She follows frame runner forCPT 2 deficiency in [facility] [place]. No diarrhea. No chest pain or shortness [...] Neut % (Auto) 67.9, Lymph % (Auto) 21.1,Rhea % (Auto) 7.2, Eos % (Auto) 2.7, [...] PRN (Reason: wheezing) (DME) OXYGEN - Supplemental ([facility] INFORMATIONAL USE ONLY) Gas See Rx [...] Self Care Charges/Coding Visit Charges Inpatient E&M: 93979 Disch Hosp >30min 07/20/25 1127 <Electronically signed by Vincent Hood MD> Cosigner Signature (if applicable): CC: Dr. Jennifer Gordon MD; Dr. Vincent Hood MD~ Signed [facility] [facility] Work Phone: 1(790) 500-715609-14-2025 Discharge summary Author Vincent Hood [facility] Note Date/Time July 20, 2025 11:26am [facility] Medical Records Department [address] [place] [address] Instructions for Home/Discharge Instructions 07/20/25 0901 MR#: [id number] Acct: [id number] Name: RADHA SHAFER Rep #:[id number] : [...] PRN (Reason: wheezing) (DME) OXYGEN - Supplemental ([facility] INFORMATIONAL USE ONLY) Gas See Rx [...] DO; Dr. Arnel Cano MD ~ Signed [facility] Work Phone: 1(930) 179-884909-14-2025 Discharge summary [facility] Medical Records Department [address] [place] [address] Discharge Summary 07/20/25 0907 MR#: [id number] Acct: [id number] Name: RADHA SHAFER Rep #:[id number] : 1960 65 From: Vincent Perdomo PCP: Dr. Jennifer Gordon MD Status:ADM IN Location: [place] [address] Providers Date of Admission: 07/17/25 Date of [...] in her 30s ? She sees a frame runner at [facility] ? 07/20: She completed D10 half-normal saline. [...] (2,000 unit) capsule 50 mcg PO DAILY ysfcfvo92/13/23 ferrous sulfate 325 mg (65 mg iron) [...] for nebulization 2.5 mg inhalation Q6 PRN gnbgnyew09/12/25 lovastatin 10 mg tablet 10 mg PO QPM cholesterol #90 tabs 07/17/25 OXYGEN - Supplemental ([facility] INFORMATIONAL USE ONLY) 07/18/25 Physical Exam Narrative Seen and examined. Patient stated her myalgia/muscle pain has resolved. [facility] No [facility]. No chest pain or [...] Neut % (Auto) 67.9, Lymph % (Auto) 21.1,Rhea % (Auto) 7.2, Eos % (Auto) 2.7, [...] PRN (Reason: wheezing) (DME) OXYGEN - Supplemental ([facility] INFORMATIONAL USE ONLY) Gas See Rx [...] Self Care Charges/Coding Visit Charges Inpatient E&M: 05745 Disch Hosp >30min 07/20/25 1127 Cosigner Signature (if applicable): CC: Dr. Jennifer Gordon MD; Dr. Vincent Hood MD~ Signed [facility]09-14-2025 Discharge summary [facility] Medical Records Department [address] [place] [address] Instructions for Home/Discharge Instructions 07/20/25 09 MR#: [id number] Acct: [id number] Name: RADHA SHAFER ANIL Rep #:[id number] [...] PRN (Reason: wheezing) (DME) OXYGEN - Supplemental ([facility] INFORMATIONAL USE ONLY) Gas See Rx [...] DO; Dr. Arnel Cano MD ~ Signed [facility]09-14-2025 [facility] Progress note Author Arnel Cano [facility] Note Date/Time July 19, 2025 12:12pm [facility] Medical Records Department [address] [place] [address] Progress Note - Hospitalist 07/19/25 1208 MR#: [id number] Acct: [id number] Name: RADHA SHAFER Rep #:[id number] : 1960 65 From: Arnel parisi MD PCP: Dr. Jennifer Gordon MD Status:ADM IN Location: [place] [address] 1 Subjective Subjective Doing well, feels better. [...] Neut % (Auto) 63.2, Lymph % (Auto) 24.7,Rhea % (Auto) 8.3, Eos % (Auto) 2.6, [...] in her 30s ? She sees a frame runner at [facility] ? Continue with D10 half-normal saline ? [...] DVT: Heparin Charges/Coding Visit Charges Inpatient E&M: 12552 Subs Hosp L2 07/19/25 1212 <Electronically signed by Arnel Cano MD> Cosigner Signature (if applicable): CC: ~ Signed [facility] Work Phone: 1(967) 567-433909-13-2025 Progress note [facility] Medical Records Department [address] [place] [address] Progress Note - Hospitalist 07/19/25 1208 MR#: [id number] Acct: [id number] Name: RADHA SHAFER Rep #:[id number] : 1960 65 From: Arnel parisi MD PCP: Dr. Jennifer Gordon MD Status:ADM IN Location: [place] [address]- Subjective Subjective Doing well, feels better. CPK [...] Neut % (Auto) 63.2, Lymph % (Auto) 24.7,Rhea % (Auto) 8.3, Eos % (Auto) 2.6, [...] in her 30s ? She sees a frame runner at [facility] ? Continue with D10 half-normal saline ? [...] DVT: Heparin Charges/Coding Visit Charges Inpatient E&M: 19124 Subs Hosp L2 07/19/25 1212 Cosigner Signature (if applicable): CC: ~ Signed [facility]09-12-2025 Progress note Author Arnel Cano [facility] Note Date/Time July 18, 2025 2:16pm [facility] Medical Records Department [address] [place] [address] Progress Note - Hospitalist 07/18/25 1401 MR#: [id number] Acct: [id number] Name: RADHA SHAFER Rep #:[id number] : 1960 65 From: Arnel parisi MD PCP: Dr. Jennifer Gordon MD Status:ADM IN Location: [place] [address] Subjective Subjective Feels better than when she [...] 72.5 H, Lymph % (Auto) 18.0 L, Rhea % (Auto) 6.6, Eos % (Auto) 1.6, [...] ALT 16, Alkaline Phosphatase 89, Total Creatine Xlghkg156 H, Total Protein 7.1, Albumin 3.9, Globulin [...] Clarity Clear, Urine pH 7.0, Ur Specific [place] 1.010, Urine Protein 30 H, Urine Glucose [...] % (Auto) 63.7, Lymph % (Auto) 24.1, Rhea% (Auto) 8.2, Eos % (Auto) 3.0, Baso [...] in her 30s ? She sees a frame runner at [facility] ? Continue with D10 half-normal saline 2. Essential HTN/HLD/CAD/PAD/history of NSVT ? Continue with her home blood pressure medications ? Will monitor make adjustments as necessary ? Continue with lovastatin ? Continue with aspirin 3. Hypothyroidism ? Stable this is status post thyroidectomy ? Continue with Synthroid ? Will have her follow-up with her financial supervisor as her TSH is low we will [...] DVT: Heparin Charges/Coding Visit Charges Inpatient E&M: 51511 Subs Hosp L2 07/18/25 0705 <Electronically signed by Arnel Cano MD> Cosigner Signature (if applicable): CC: ~ Signed [facility] Work Phone: 1(850) 850-288109-12-2025 Progress note [facility] Medical Records Department [address] [place] [address] Progress Note - Hospitalist 07/18/25 1401 MR#: [id number] Acct: [id number] Name: RADHA SHAFER Rep #:[id number] : 1960 65 From: Arnel parisi MD PCP: Dr. Jennifer Gordon MD Status:ADM IN Location: [place] [address] Subjective Subjective Feels better than when she [...] 72.5 H, Lymph % (Auto) 18.0 L, Rhea % (Auto) 6.6, Eos % (Auto) 1.6, [...] ALT 16, Alkaline Phosphatase 89, Total Creatine Wniicx353 H, Total Protein 7.1, Albumin 3.9, Globulin [...] Clarity Clear, Urine pH 7.0, Ur Specific [place] 1.010, Urine Protein 30 H, Urine Glucose [...] Neut% (Auto) 63.7, Lymph % (Auto) 24.1, Rhea% (Auto) 8.2, Eos % (Auto) 3.0, Baso [...] in her 30s ? She sees a frame runner at [facility] ? Continue with D10 half-normal saline 2. Essential HTN/HLD/CAD/PAD/history of NSVT ? Continue with her home blood pressure medications ? Will monitor make adjustments as necessary ? Continue with lovastatin ? Continue with aspirin 3. Hypothyroidism ? Stable this is status post thyroidectomy ? Continue with Synthroid ? Will have her follow-up with her financial supervisor as her TSH is low we will [...] DVT: Heparin Charges/Coding Visit Charges Inpatient E&M: 48443 Subs Hosp L2 07/18/25 1416 Cosigner Signature (if applicable): CC: ~ Signed [facility]09-12-2025 History and physical note Author Elana Granda [facility] Note Date/Time July 18, 2025 6:22am [facility] Medical Records Department [address] [facility] [place] [address] H&P Exam - Hospitalist 07/17/252234 MR#: [id number] Acct: [id number] Name: RADHA SHAFER Rep #:[id number] : 1960 65 From: Elana Adames DO PCP: Dr. Jennifer Gordon MD Status:ADM IN Location: [place] [address] HPI - General General Date of Admission: [...] carnitine palmitoyl transferase II deficiency; followed by frame runner at [facility] on levocarnitine, polyneuropathy; history of cervical radiculopathy, history of NSVT; followed by Dr. Shine of [facility], history of syncope, depression; on duloxetine,chronic diarrhea, GERD; on omeprazole, history of hysterectomy, history of rotator cuff repair, history of cataract; s/p extraction and osteoarthritis; with history of low back pain and total knee replacement who presents to [facility] ER complaining of flare of CPT-2 with muscle aches and pains. Ms. Shafer reports her symptoms began a few hours prior to admission with the sudden-onset of generalized muscle aches and pain that are mild but herald aflare of CPT-2 so she was instructed by her frame runner to come in and be treatedwith D10 [...] this time. [facility] a stay that is expected to extend beyond 2 midnights. [facility] Medical History Arthrosis of right acromioclavicular joint [...] 72.5 H, Lymph % (Auto) 18.0 L, Rhea % (Auto) 6.6, Eos % (Auto) 1.6, [...] ALT 16, Alkaline Phosphatase 89, Total Creatine Appcmb979 H, Total Protein 7.1, Albumin 3.9, Globulin 3.2, Albumin/Globulin Ratio 1.2 Assessment & Plan Assessment/Plan (1) Carnitine palmitoyltransferase II deficiency: (2) Myalgia: (3) Generalized weakness: (4) Obesity (BMI 30-39.9): PLAN: Plan 1. CPT-2 flare with Myalgias and Generalized Weakness; followed by frame runner at [facility] on levocarnitine - Admit to PCU. Continue D10 1/2 NS as per frame runner'srecommendations. Give acetaminophen prn for pain or fever. [...] of NSVT; followed by Dr. Shine of [facility] - Noted. 15. History of [...] 55 minutes. Charges/Coding Visit Charges Inpatient E&M: 35135 Init Hosp L2 07/18/25 0622 <Electronically signed by Elana Deshpande DO> Cosigner Signature (if applicable): CC: Dr. Jennifer Gordon MD; Dr. Elana Deshpande DO~ Signed [facility] Work Phone: 1(548) 576-705009-12-2025 History and physical note [facility] Medical Records Department [address] [facility] [place] [address] H&P Exam - Hospitalist 07/17/252234 MR#: [id number] Acct: [id number] Name: RADHA SHAFER ANIL Rep #:[id number] : 1960 65 From: Elana Adames DO PCP: Dr. 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 Shine of [facility], history of syncope, depression; on duloxetine,chronic diarrhea, GERD; on omeprazole, history of hysterectomy, history of rotator cuff repair, history of cataract; s/p extraction and osteoarthritis; with history of low back pain and total knee replacement who presents to [facility] ER complaining of flare of CPT-2 with muscle aches and pains. Ms. Shafer reports her symptoms began a few hours prior to admission with the sudden-onset of generalized muscle aches and pain that are mild but herald aflare of CPT-2 so she was instructed by her frame runner to come in and be treatedwith D10 [...] this time. She was then admitted to [facility] ongoing care for a stay that is expected to extend beyond 2 midnights. [facility] Medical History Arthrosis of right acromioclavicular joint [...] 72.5 H, Lymph % (Auto) 18.0 L, Rhea % (Auto) 6.6, Eos % (Auto) 1.6, [...] ALT 16, Alkaline Phosphatase 89, Total Creatine Irkxlh091 H, Total Protein 7.1, Albumin 3.9, Globulin 3.2, Albumin/Globulin Ratio 1.2 Assessment & Plan Assessment/Plan (1) Carnitine palmitoyltransferase II deficiency: (2) Myalgia: (3) Generalized weakness: (4) Obesity (BMI 30-39.9): PLAN: Plan 1. CPT-2 flare with Myalgias and Generalized Weakness; followed by frame runner at [facility] on levocarnitine - Admit to PCU. Continue D10 1/2 NS as per frame runner'srecommendations. Give acetaminophen prn for pain or fever. [...] of NSVT; followed by Dr. Shine of [facility] - Noted. 15. History of [...] 55 minutes. Charges/Coding Visit Charges Inpatient E&M: 52444 Init Hosp L2 07/18/25 0622 Cosigner Signature (if applicable): CC: Dr. Jennifer Gordon MD; Dr. Elana Deshpande, DO~ Signed [facility]09-12-2025 Discharge summary Author Ramakrishna Maher [facility] Note Date/Time July 17, 2025 10:37pm [facility] Medical Records Department [address] [place] [address] Emergency Department Summary 07/17/25 MR#: [id number] Acct: [id number] Name: RADHA SHAFER ANIL Rep #:[id number] [...] 65-year-old woman. She is seen by a frame runner at [facility]. She was diagnosed with CPT II. This is a genetic disorder affecting her met embolism offat and may result in dysrhythmia, rhabdomyolysis, hypoglycemia. Patient had a letter from her frame runner that instructed whoever cared for her to order specific tests and to treat with D10 half-normal at 1.5 times maintenance Prior similar symptoms: Yes Recent Illness/Hospitalization: Yes [facility] Medical History Arthrosis of right acromioclavicular joint [...] 72.5 H Lymph % (Auto) 18.0 L Rhea % (Auto) 6.6 Eos % (Auto) 1.6 [...] (Rate is 62. The EKG is normal. WI intervalis 166 ms. QRS duration 100 ms. QT duration 4 and 20 ms. [place] is normal.) Management Discussion w/another healthcare provider: Hospitalist (Spoke with Dr. Bynum. Patient was admitted to the PCU he was informed of her disorder and treatment and recommendations by her frame runner.) Treatment and Re-Evaluation :: It is an [...] Secondary rhabdomyolysis Disposition Disposition: Acute Care Hospital [facility] What to do if you have Problems For any increased pain, shortness of breath, bleeding, nausea or vomiting, chestpain, or any unexpected problems, contact your Primary Care Provider. Call [facility] ([phone]) or report to the closest Emergency Room. Call 911 if necessary. 07/17/252236 <Electronically signed by Ramakrishna Maher MD> Cosigner Signature (if applicable): CC: Dr. Jennifer Gordon MD ~ Signed [facility] Work Phone: 1(698) 521-538309-11-2025 Discharge summary [facility] Medical Records Department [address] [place] [address] Emergency Department Summary 07/17/25 MR#: [id number] Acct: [id number] Name: RADHA SHAFER Rep #:[id number] : [...] 65-year-old woman. She is seen by a frame runner at [facility]. She was diagnosed with CPT II. This is a genetic disorder affecting her met embolism offat and may result in dysrhythmia, rhabdomyolysis, hypoglycemia. Patient had a letter from her frame runner that instructed whoever cared for her to [...] 72.5 H Lymph % (Auto) 18.0 L Rhea % (Auto) 6.6 Eos % (Auto) 1.6 [...] (Rate is 62. The EKG is normal. WI intervalis 166 ms. QRS duration 100ms. QT duration 4 and 20 ms. [place] is normal.) Management Discussion w/another healthcare provider: Hospitalist (Spoke with Dr. Bynum. Patient was admitted to the PCU he was informed of her disorder and treatment and recommendations by her frame runner.) Treatment and Re-Evaluation :: It is an [...] Secondary rhabdomyolysis Disposition Disposition: Acute Care Hospital [facility] What to do if you have Problems For any increased pain, shortness of breath, bleeding, nausea or vomiting, chestpain, or any unexpected problems, contact your Primary Care Provider. Call [facility] ([phone]) or report tothe closest Emergency Room. Call 911 if necessary. 07/17/252236 Cosigner Signature (if applicable): CC: Dr. Jennifer Gordon MD ~ Signed [facility]08-12-2025 Telephone encounter Note* Telephone Encounter - Nikolai Gray - 06/17/2025 2:50 PM EDT Left message for patient to schedule a follow up appy [facility]08-12-2025 Miscellaneous Notes* Telephone Encounter - Nikolai Gray - 06/17/2025 2:50 PM EDT Left message for patient to schedule a follow up appy documented in this encounterUniversity [facility]-2025 Telephone encounter Note* Telephone Encounter - Meliza Rust - 06/11/2025 2:35 PM EDT Patient called and was stuck in traffic . Wouldn't make it until after 4 she stayed that she will call in about a week. [facility]08-06-2025 Miscellaneous Notes* Telephone Encounter - Meliza Rust - 06/11/2025 2:35 PM EDT Patient called and was stuck in traffic . Wouldn't make it until after 4 she stayed that she will call in about a week. documented in this encounterUniversity Hospitals [facility] Center07-04-2025 Radiology Diagnostic study note [facility] Imaging Services [address] [place], [place] [address] Thyroid MR#: [id number] Acct: [id number] Name: RADHA SHAFER ANIL Rep #: [id number] : 1960 F 65 From: Shavonne Guevara MD PCP: Dr. Jennifer Gordon MD Status: REG CLI Study:Thyroid Date of Exam: 05/07/25 Exam# [id number] Ordering Dr: Jennifer Gordon MD PROCEDURE: THYROID, [...] abnormality of the thyroidectomy bed. Reading Location: [id number] CC: Dr. Jennifer Gordon MD ~ It Program Auditor: Signed [facility]06-27-2025 Telephone encounter Note* Telephone Encounter - Celinalidia Meaghan - 05/02/2025 10:02 AM EDT [facility] called to see if there was an update on the patient taking or not taking the Dojolvi and if there are any side effects she may be experiencing. Please give them a call at [phone] and ask for a Pharmacist on the Dojolvi team. Thank you, Meaghan [facility]06-27-2025 Miscellaneous Notes* Telephone Encounter - Meaghan Valero - 05/02/2025 10:02 AM EDT [facility] called to see if there was an update on the patient taking or not taking the Dojolvi and if there are any side effects she may be experiencing. Please give them a call at [phone] and ask for a Pharmacist on the Dojolvi team. Thank you, Meaghan documented in this encounterUniversity Hospitals [facility] Medical Center06-25-2025 NoteHeart & Vascular Clinic Note [facility] Visit Date: 04/30/2025 [...] #HTN #HLD #FELISA #ECHO; 04/2024. Done in [place]. LVEF-60% #CARDIAC MRI Normal biventricular size and [...] ALTEMEIER PROCEDURE; Surgeon: Jada Vargas MD; Location: [facility] Main OR; Service: Colorectal CARDIAC CATHETERIZATION N/A 09/26/2022 Procedure: Coronary Angiogram; Surgeon: Tor Long MD; Location: [facility]; Service: Cardiovascular CARDIOVASCULAR STRESS TEST CHOLECYSTECTOMY COLONOSCOPY with biopsies COLONOSCOPY N/A 02/17/2022 Procedure: COLONOSCOPY; Surgeon: Jada Vargas MD; Location: [facility] Endo; Service: Colorectal EGD N/A 08/15/2022 Procedure: ESOPHAGOGASTRODUODENOSCOPY WITH BIOPSY; Surgeon: Tyshawn Santos MD; Location: Endo; Service: Gastroenterology GALLBLADDER HC LEFT HEART CATH N/A 09/26/2022 Procedure: Left Heart Cath; Surgeon: Tor Long MD; Location: [facility]; Service: Cardiovascular HYSTERECTOMY JOINT REPLACEMENT Left knee ORTHOPEDIC SURGERY r wrist surgery, left ankle, right rotator cuff ROTATOR CUFF REPAIR Right SIGMOIDOSCOPY FLEXIBLE N/A 06/23/2022 Procedure: SIGMOIDOSCOPY FLEXIBLE WITH BIOPSY; Surgeon: Tyshawn Santos MD; Location: Endo; Service: Gastroenterology THYROIDECTOMY N/A 07/15/2015 Procedure: TOTAL THYROIDECTOMY; Surgeon: Lopez Alonso MD; Location: [facility] NEURO OR; Service: US ECHO TRANSTHORACIC [...] Take 1 (one) table (more content not included)...[facility] [id number] History of Present illness Narrative* Cb Boudreaux MD - 04/30/2025 10:29 AM EDT Heart & Vascular Clinic Note [facility] Visit Date: 04/30/2025 [...] #HTN #HLD #FELISA #ECHO; 04/2024. Done in [place]. LVEF-60% #CARDIAC MRI Normal biventricular size and [...] ALTEMEIER PROCEDURE; Surgeon: Jada Vargas MD; Location: [facility] Main OR; Service: Colorectal CARDIAC CATHETERIZATION N/A 09/26/2022 Procedure: Coronary Angiogram; Surgeon: Tor Long MD; Location: [facility]; Service: Cardiovascular CARDIOVASCULAR STRESS TEST CHOLECYSTECTOMY COLONOSCOPY with biopsies COLONOSCOPY N/A 02/17/2022 Procedure: COLONOSCOPY; Surgeon: Jada Vargas MD; Location: [facility] Endo; Service: Colorectal EGD N/A 08/15/2022 Procedure: ESOPHAGOGASTRODUODENOSCOPY WITH BIOPSY; Surgeon: Tyshawn Santos MD; Location: [facility]; Service: Gastroenterology GALLBLADDER HC LEFT HEART CATH N/A 09/26/2022 Procedure: Left Heart Cath; Surgeon: Tor Long MD; Location: [facility]UCATIONAL THERAPY TEACHER; Service: Cardiovascular HYSTERECTOMY JOINT REPLACEMENT Left knee ORTHOPEDIC SURGERY r wrist surgery, left ankle, right rotator cuff ROTATOR CUFF REPAIR Right SIGMOIDOSCOPY FLEXIBLE N/A 06/23/2022 Procedure: SIGMOIDOSCOPY FLEXIBLE WITH BIOPSY; Surgeon: Tyshawn Santos MD; Location: [facility]; Service: Gastroenterology THYROIDECTOMY N/A 07/15/2015 Procedure: TOTAL THYROIDECTOMY; Surgeon: Lopez Alonso MD; Location: [facility] NEURO OR; Service: US ECHO TRANSTHORACIC [...] total) by mouth daily with breakfast . 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 Vancomycin Rash documented in this [id number] Radiology Diagnostic study note [facility] Imaging Services [address] [place] [address] Lung Screening MR#: [id number] Acct: [id number] Name: RADHA SHAFER Rep #: [id number] : 1960 F 65 From: Chris Tamez MD PCP: Dr. Jennifer Gordon MD Status: REG CLI Study:Low Dose CT Lung Screening Date of Exam : 04/17/25 Exam# [id number] Ordering Dr: John Heredia NP MANAGER SCHEDULING-C PROCEDURE: LOW DOSE CT LUNG SCREENING 04/17/2025 REASON FOR EXAM: FORMER SMOKER TECHNIQUE: Low Dose CT Lung screening without contrast. Coronal and Sagittal reconstructionseries were provided. One or more dose reduction techniques were used (e.g., Automated exposure control, adjustment of the mA and/or kV according to patient size, use of iterative reconstruction technique). REFERENCE LINK: [employer] Lung-RADS RADIATION DOSE SUMMARY: CTDlvol: 16.28 mGy [...] LDCT. Other Significant Findings: None. Reading Location: [id number] CC: MANAGER SCHEDULING-John Heredia; Dr. Jennifer Gordon MD ~ It Program Auditor: Signed [facility]06-11-2025 Instructions* Patient Instructions* Yareli Woodruff MA - 2025 4:26 PM EDT It was our pleasure to see you in EP Clinic today. Please contact: JASON Candelario [phone] FERMIN Downs RMA with questions, concerns, or if you need prescription refills before your next appointment. documented in this [id number] Evaluation note* Diagnosis Onset Date Resolution Status Admit Date Prediabetes acute April 16 1:12pm FELISA (obstructive sleep apnea) chroni c 2025 1:12pm Carnitine palmitoyltransfera se II deficiency inactive 2025 1:12pm Stage 3b chronic kidney dise ase (CKD) noneactive 2025 1:12pm Moderate major depression noneactive 2025 1:12pm Mixed hyperlipidemia noneactive 2025 1:12pm Foamy urine noneactive April 16 1:12pm Chronic abdominal pain noneactive [facility] 2024 1:12pm Post-operative hypothyroidism noneac tive 2025 1:12pm Ventricular tachycardia noneactive [facility] 2024 1:12pm Essential hypertension noneactive [facility] 2024 1:12pm COPD (chronic obstructive pulmonary disease) noneactive April 16 1:12pm Obesity (BMI 30-39.9) noneactive [facility] 2024 1:12pm Smoking greater than 20 pack [...] 2025 11:28pm Generalized weakness inactive Jul 11:28pm [facility] Work Phone: 1(502) 641-810205-22-2025 Evaluation note* Diagnosis Onset Date Resolution Status [...] 16 1:12pm Chronic abdominal pain noneactive [facility] 2024 1:12pm Post-operative hypothyroidism noneac tive 2025 1:12pm Ventricular tachycardia noneactive [facility] 2024 1:12pm Essential hypertension noneactive [facility] 2024 1:12pm COPD (chronic obstructive pulmonary disease) noneactive April 16 1:12pm Obesity (BMI 30-39.9) noneactive [facility] 2024 1:12pm Smoking greater than 20 pack years acute June 17 2:44pm Stage 3 severe COPD by GOLD classification acute June 17 2:44pm Hypoxemia chronic June 17 2:44pm FELISA (obstructive sleep apnea) chroni c June 17, 2025 2:44pm Anemia acute June 26 1:54pm [facility] Work Phone: 1(680) 829-380105-22-2025 Evaluation note* Diagnosis Onset Date Resolution Status [...] 2025 1:12pm Prediabetes acute April 16 1:12pm FLEISA (obstructive sleep apnea) chroni c 2025 1:12pm Stage 3b chronic kidney dise ase (CKD) noneactive 2025 1:12pm Moderate major depression noneactive 2025 1:12pm Mixed hyperlipidemia noneactive 2025 1:12pm Foamy urine noneactive April 16 1:12pm Chronic abdominal pain noneactive [facility] 2024 1:12pm Post-operative hypothyroidism noneac tive 2025 1:12pm Ventricular tachycardia noneactive [facility] 2024 1:12pm Essential hypertension noneactive 2024 1:12pm [...] Secondary rhabdomyolysis acute July 17, 2025 10:51pm [facility] Work Phone: 1(894) 498-947305-22-2025 Evaluation note* Diagnosis Onset Date Resolution Status [...] Secondary rhabdomyolysis acute July 17, 2025 11:28pm [facility] Work Phone: 1(105) 246-764004-30-2025 Telephone encounter Note* Telephone Encounter - Shaina Boykin MD - 03/05/2025 1:47 PM EDT Received a call from Radha this afternoon. She has CPT2. She was admitted last week to [facility] due to gastroenteritis and subsequently elevated CK [...] She plans to get labs drawn at [facility]. I asked her to give us a call if her symptoms to not improve or if she has other questions/concerns. Plan discussed with section hand attending, Dr. Moon, and her primary metabolic provider, Dr. Hyman. Shaina Boykin MD PGY-4 Division of Genetic & Genomic Medicine [facility] Work Phone: [phone] Miscellaneous Notes* Telephone Encounter - Shaina Boykin MD - 03/05/2025 1:47 PM EDT Received a call from Radha this afternoon. She has CPT2. She was admitted last week to [facility] due to gastroenteritis and subsequently elevated CK [...] She plans to get labs drawn at [facility]. I asked her to give us a call if her symptoms to not improve or if she has other questions/concerns. Plan discussed with section hand attending, Dr. Moon, and her primary metabolic provider, Dr. Hyman. Shaina Boykin MD PGY-4 Division of Genetic & Genomic Medicine [facility] documented [facility] Evaluation note* Diagnosis Onset Date Resolution Status [...] April 16 1:12pm Chronic abdominal pain noneactive [facility] 2024 1:12pm Post-operative hypothyroidism noneac tive 2025 1:12pm Ventricular tachycardia noneactive [facility] 2024 1:12pm Essential hypertension noneactive [facility] 2024 1:12pm COPD (chronic obstructive pulmonary disease) noneactive April 16 1:12pm Obesity (BMI 30-39.9) noneactive [facility] 2024 1:12pm Smoking greater than 20 pack years acute June 17 2:44pm Stage 3 severe COPD by GOLD classification acute June 17 2:44pm Hypoxemia chronic June 17, 025 2:44pm FELISA (obstructive sleep apnea) chroni c June 17, 2025 2:44pm [facility] Work Phone: 1(841) 788-985904-15-2025 History of Present illness Narrative* Adelina Mejia [...] in Direct Patient Care: 5 Narrative: This finisher screwdown provided spiritual care and supportive presence for the patient. Roving [address] Reporter remains available for emotional and spiritual support as needed. Patients Response to Pastoral Care: Expressed Gratitude for Visit Planning for Future Visits: PRN Pastoral care will remain available for emotional and spiritual support as needed. Chaplains can bereached by dialing the on-call number found within the signature of this note. Or, requested by on-call day finisher screwdown via [employer]. Rev. Emmett Rubio [address] Reporter Spiritual Care Department 02/17/25 8155 Visit Background Visit With Patient Visit By Staff [address] Reporter Visit Progression Introduction;Follow-Up Visit Requested By Roving [address] Reporter Initiated Visit Source [address] Reporter Initiated Visit Type Inpatient Visit Circumstances and Events Routine Visit Visit Length (minutes) 5 Patient's Response to Pastoral Care Expressed Gratitude for Visit Visit Planning PRN Spiritual Assessment Not assessed during visit Yazdanism Assessment Not assessed during this visit Family assessment provided? Unable to asess during this visit * Letitia Obrien MD - 02/17/2025 1:30 PM EDT [facility] PROGRESS NOTE Assessment and Plan Radha Shafer is a 64 y.o. female patient of , Physician with history of COPD on home oxygen, struct of sleep apnea, hypertension, chronic kidney disease, hypothyroidism, CPT deficiency presented to [facility] on 02/13/2025 with shortness of breath. Gastroenteritis, [...] with dextrose 10%/normal saline genetic specialist at [facility] CK improving, discontinue fluids on February [...] Russell MD - 02/16/2025 12:43 PM EDT [facility] PROGRESS NOTE Assessment and Plan Radha Shafer is a 64 y.o. female patient of , Physician with history of COPD on home oxygen, struct of sleep apnea, hypertension, chronic kidney disease, hypothyroidism, CPT deficiency presented to [facility] on 02/13/2025 with shortness of breath. Gastroenteritis, [...] with dextrose 10%/normal saline genetic specialist at [facility] CK improving, discontinue fluids on February [...] Russell MD - 02/15/2025 12:49 PM EDT [facility] PROGRESS NOTE Assessment and Plan Radha Shafer is a 64 y.o. female patient of , Physician with history of COPD on home oxygen, struct of sleep apnea, hypertension, chronic kidney disease, hypothyroidism, CPT deficiency presented to [facility] on 02/13/2025 with shortness of breath. 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 Muscle aches Rhabdomyolysis Elevated CK above 20,000 one presented IV hydration with dextrose 10%/normal saline genetic specialist at [facility] CK in the morning Monitor BMP/magnesium [...] Russell MD - 02/14/2025 3:28 PM EDT [facility] PROGRESS NOTE Assessment and Plan Radha Shafer is a 64 y.o. female patient of , Physician with history of COPD on home oxygen, struct of sleep apnea, hypertension, chronic kidney disease, hypothyroidism, CPT deficiency presented to [facility] on 02/13/2025 with shortness of breath. Gastroenteritis [...] in Direct Patient Care: 15 Narrative: This finisher screwdown visited with pt Radha while rounding on the unit. Roving Court Reporter introduced selfand the role of a finisher screwdown. Listened empathetically while Radha shared her experience, and that shewas having a difficult time staying hydrated. Radha shared no immediate emotional/spiritual needs, but thanked the finisher screwdown for the visit. Pastoral Care to remain available as needed. 02/14/25 1445 Visit Background Visit With Patient Visit By Student Roving [address] Reporter Visit Progression Introduction Visit Requested By Roving [address] Reporter Initiated Visit Source Roving [address] Reporter Initiated Visit Type Inpatient;Rounding Visit Circumstances and Events Routine Visit Visit Length (minutes) 15 Patient's Response to Pastoral Care Appeared to be well-engaged Visit Planning PRN Spiritual Assessment Not assessed during visit Yazdanism Assessment Not assessed during this visit Family assessment provided? Unable to asess during this visit Kavya Gentile MDiv [address] Reporter Tire Finisher [facility] On-Call [address]oving [address] Reporter Hotline: [phone] * Delmy Olmedo RN - 02/14/2025 2:26 PM EDT Patient complained of burning up her arm and to her shoulder, after this nurse hung doxycycline Axt. This nurse paused said axt, notified Dr. Sidra Espinoza at this time. documented in this [id number] NoteS DISCHARGE SUMMARY -- [facility] Radha Shafer Admitted: 02/13/2025 Discharge Date: 02/18/25 PCP Handoff Recommended Outpatient Testing Follow-up with PCP Results Pending At Discharge None Clinical Summary Radha Shafer is a 64 y.o. female patient of , Physician with history of COPD on home oxygen, struct of sleep apnea, hypertension, chronic kidney disease, hypothyroidism, CPT deficiency presented to [facility] on 02/13/2025 with shortness of breath. Gastroenteritis, [...] with dextrose 10%/normal saline genetic specialist at [facility] CK improving 500 on discharge time, [...] tablet Commonly known as: (more content not included)...[facility]04-15-2025 Hospital course Narrative* Jossie Alcazar MD - 02/18/2025 11:52 AM EDT Images from the original note were not included. [facility] DISCHARGE SUMMARY -- [facility] Radha Shafer Admitted: 02/13/2025 Discharge Date: 02/18/25 PCP Handoff Recommended Outpatient Testing Follow-up with PCP Results Pending At Discharge None Clinical Summary Radha Shafer is a 64 y.o. female patient of , [facility] with history of COPD on home oxygen, struct of sleep apnea, hypertension, chronic kidney disease, hypothyroidism, CPT deficiency presented to [facility] on 02/13/2025 with shortness of breath. Gastroenteritis, [...] with dextrose 10%/normal saline genetic specialist at [facility] CK improving 500 on discharge time, [...] Trelegy Ellipta 200-62.5-25 mcg Dsdv Generic drug: wtwhfkpinqz-gsxeifrxo-dkojhnbn Inhale 1 (one) Inhalation daily . Quantity: [...] on 02/18/25, 11:52 AM documented in this [id number] Plan of care note* Plan of Care [...] level of psychosocial functioning Outcome: Partially Met [id number] Miscellaneous Notes* Plan of Care - Delmy [...] from Dr. Anjana Campbell (Genetics Attending at [facility]). Concerned that Joelo might need different management d/t genetic deficiency. They recommend D10.9NS @ 150 ml/hr as this deficiency also needs increased calories. She will be section hand until . The # to reach her is - main office of physician is [phone]. Dr Anjana Campbell (genetics). Tell whomever answers [...] without acute dynamic changes, no STEMI. NSR. WI interval 144 ms. QRS 90 ms. BPM: [...] ECG and sinus tachycardia Comments: Sinus tachycardia. WI interval 140 ms. QRS [address] and T wave abnormality. No STEMI. documented in this [id number] NoteS PROGRESS NOTE Assessment and Plan Radha Shafer is a 64 y.o. female patient of , Physician with history of COPD on home oxygen, struct of sleep apnea, hypertension, chronic kidney disease, hypothyroidism, CPT deficiency presented to [facility] on 02/13/2025 with shortness of breath. Gastroenteritis, [...] with dextrose 10%/normal saline genetic specialist at [facility] CK improving, discontinue fluids on February [...] affect AUTHENTICATED BY LETITIA OBRIEN, ON 02/17/2025 13:31:[address] [place] [address] 02-17-2025 Consult note* Brigette Govea RN - [...] insurance coverage is listed as [facility]NA[facility] MEDIC[facility] (HMO SNP) and [place] as a secondary insurance. Pt denies transportation, medication or food insecurity. Pt denies any concerns relating to obtaining medications or follow up medical care. DISCHARGE CARE RESOURCES: Pt has Hui Whitehead as PCP. The patient is not currently receiving home health services.. Pt's daughter as teachable healthcare consulting manager. Pt does not have services with [facility] on Aging such as [facility]/ [facility]. CM will continue to follow this [...] routine activities due to chronic pain:: Yes [id number] Consult note* Brigette Govea RN - 02/17/2025 [...] insurance coverage is listed as [facility] MANA[facility]ED MEDICARE/[facility] (O SNP) and [place] as a secondary insurance. Pt denies transportation, medication or food insecurity. Pt denies any concerns relating to obtaining medications or follow up medical care. DISCHARGE CARE RESOURCES: Pt has Hui Whitehead as PCP. The patient is not currently receiving home health services.. Pt's daughter as teachable healthcare consulting manager. Pt does not have services with [facility] on Aging such as [facility]/ [facility]. CM will continue [...] to chronic pain:: Yes documented in this [id number] Plan of care note* Plan of Care [...] level of psychosocial functioning Outcome: Partially Met [id number] Plan of care note* Plan of Care - Rachael Huffman RN - 02/16/2025 1:36 PM EDT Problem: Actual or potential alteration in health Goal: Absence of healthcare acquired conditions Outcome: Partially Met Goal: Knowledge of Interdisciplinary Plan of Care Outcome: Partially Met Goal: Knowledge of Enviroment Outcome: Partially Met Problem: Pressure Injury, Risk of Goal: Absence of pressure injury Outcome: Partially Met [id number] NoteS PROGRESS NOTE Assessment and Plan Radha Shafer is a 64 y.o. female patient of , Physician with history of COPD on home oxygen, struct of sleep apnea, hypertension, chronic kidney disease, hypothyroidism, CPT deficiency presented to [facility] on 02/13/2025 with shortness of breath. Gastroenteritis, [...] with dextrose 10%/normal saline genetic specialist at [facility] CK improving, discontinue fluids on February [...] affect AUTHENTICATED BY OLGA RUSSELL, ON 02/16/2025 12:46:50[facility] 02-15-2025 NoteS PROGRESS NOTE Assessment and Plan Radha Shafer is a 64 y.o. female patient of , Physician with history of COPD on home oxygen, struct of sleep apnea, hypertension, chronic kidney disease, hypothyroidism, CPT deficiency presented to [facility] on 02/13/2025 with shortness of breath. 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 Muscle aches Rhabdomyolysis Elevated CK above 20,000 one presented IV hydration with dextrose 10%/normal saline genetic specialist at [facility] CK in the morning Monitor BMP/magnesium [...] affect AUTHENTICATED BY OLGA RUSSELL, ON 02/15/2025 12:52:[address] [place] [address] 02-15-2025 Plan of care note* Plan of Care - Rachael Huffman RN - 02/15/2025 11:58 AM EDT Problem: Actual or potential alteration in health Goal: Absence of healthcare acquired conditions Outcome: Partially Met Goal: Knowledge of Interdisciplinary Plan of Care Outcome: Partially Met Goal: Knowledge of Enviroment Outcome: Partially Met [id number] Progress note* Quick Note - Elisabeth Francis [...] 60. Additional iv inserted into left forearm. [id number] Progress note* Quick Note - Rae Hairston CNP - 02/14/2025 10:54 PM EDT Received a call from Dr. Anjana Campbell (Genetics Attending at [facility]). Concerned that Rhabdo might need different management d/t genetic deficiency. They recommend D10.9NS @ 150 ml/hr as this deficiency also needs increased calories. She will be section hand until . The # to reach her is - main office of physician is [phone]. Dr Anjana Campbell (genetics). Tell whomever answers [...] 1 L NS bolus Additional care provided: [facility] Work Phone: 1(441) 549-372004-11-2025 [facility] PROGRESS NOTE Assessment and Plan Radha Shafer is a 64 y.o. female patient of , Physician with history of COPD on home oxygen, struct of sleep apnea, hypertension, chronic kidney disease, hypothyroidism, CPT deficiency presented to [facility] on 02/13/2025 with shortness of breath. Gastroenteritis [...] affect AUTHENTICATED BY OLGA RUSSELL ON 02/14/2025 15:33:[address] [place] [address] 02-14-2025 Plan of care note* Plan of Care - Delmy Olmedo RN - 02/14/2025 3:27 PM EDT POC intiated Problem: Actual or potential alteration in health Goal: Absence of healthcare acquired conditions Outcome: Partially Met Goal: Knowledge of Interdisciplinary Plan of Care Outcome: Partially Met Goal: Knowledge of Enviroment Outcome: Partially Met [id number] Emergency department Note* Amelia Anderson RN - 02/14/2025 12:35 PM EDT Report called to [facility] for room 4714 [id number] Emergency department Note* Amelia Anderson RN - [...] via nasal cannula Current Needs Required 2 Telemetry:Lime Puller On: Yes LDAs: Peripheral IV 02/13/25 Anterior;Right [...] EDT EMERGENCY MEDICINE PROVIDER NOTE WELCOME TO [facility] NAME: Radha Shafer AGE: 64 y.o. SEX: female : 1960 ENCOUNTER DATE: 02/13/25 CSN: [id number] PCP: Erin Physician History of Presenting Illness/Medical [...] was given 4 baby aspirin by EMS MOBILE EQUIPMENT MECHANIC. No nitroglycerin. Patient states that she was [...] ear normal. Nose: Nose normal. Mouth/Throat: Lips: Plain. Mouth: Mucous membranes are moist. Eyes: General: [...] All other components within normal limits Narrative: [facility] has implemented the eGFR calculation [...] Procedure Abnormality Status --------- ------ CBC Auto Differential[[id number]] Abnormal Final result Please view results for these tests on the individual orders. OBTAIN VENOUS BLOOD GASES AND PERFORM CPK TSH BASIC METABOLIC PANEL MAGNESIUM LEVEL CBC AND DIFFERENTIAL Narrative: The following orders were created for panel order CBC and Differential. Procedure Abnormality Status --------- ------ CBC Auto Differential[[id number]] Please view results for these tests on [...] ALTEMEIER PROCEDURE; Surgeon: Jada Vargas MD; Location: [facility] Main OR; Service: Colorectal CARDIAC CATHETERIZATION N/A 09/26/2022 Procedure: Coronary Angiogram; Surgeon: Tor Long MD; Location: [facility] EDUCATIONAL THERAPY TEACHER; Service: Cardiovascular CARDIOVASCULAR STRESS TEST CHOLECYSTECTOMY COLONOSCOPY with biopsies COLONOSCOPY N/A 02/17/2022 Procedure: COLONOSCOPY; Surgeon: Jada Vargas MD; Location: [facility] Endo; Service: Colorectal EGD N/A 08/15/2022 Procedure: ESOPHAGOGASTRODUODENOSCOPY WITH BIOPSY; Surgeon: Tyshawn Santos MD; Location: Endo; Service: Gastroenterology GALLBLADDER HC LEFT HEART CATH N/A 09/26/2022 Procedure: Left Heart Cath; Surgeon: Tor Long MD; Location: [facility] EDUCATIONAL THERAPY TEACHER; Service: Cardiovascular HYSTERECTOMY JOINT REPLACEMENT Left knee ORTHOPEDIC SURGERY r wrist surgery, left ankle, right rotator cuff ROTATOR CUFF REPAIR Right SIGMOIDOSCOPY FLEXIBLE N/A 06/23/2022 Procedure: SIGMOIDOSCOPY FLEXIBLE WITH BIOPSY; Surgeon: Tyshawn Santos MD; Location: Endo; Service: Gastroenterology THYROIDECTOMY N/A 07/15/2015 Procedure: TOTAL THYROIDECTOMY; Surgeon: Lopez Alonso MD; Location: [facility] NEURO OR; Service: ECHO TRANSTHORACIC FOLLOWUP LIMITED [...] total) by mouth daily with breakfast . ohpbrzuweuv-msbiemmlo-jfcbrrue (Trelegy Ellipta) 200-62.5-25 mcg DsDv Inhale 1 [...] (premix) (3.375 g Intravenous New Bag 02/13/25 280) fentaNYL (SUBLIMAZE) inj syringe 25 mcg (has [...] 5' 5 Wt 98 kg (216 lb) LiJ264% BMI 35.94 kg/m In brief, patient is [...] level and did provide 500 ccIVF, unfortunately laborer stores had called ED charge nurse to inform [...] Acid: 1.5 [ZW] 1716 Informed by ED general assembler that lab team had called to inform [...] No dense focal consolidation is seen. [ZW] 5576 Update: Elevated CPK at 28k, given the [...] . Astrid Sanders DO ED Attending Physician [facility] (Please note that portions of this note may have been completed with a voice recognition program. 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 Astrid Sanders DO 02/13/25 2097 * Astrid Connolly RN - 02/13/2025 3:40 PM EDT Pt reports sob and chest pain with hx of copd. Pt was given asa and duoneb treatment. Pt reports feeling much better after duoneb * Marina Prado RN - 02/13/2025 3:40 PM EDT Bed: 25 Expected date: Expected time: Means of arrival: Comments: Nick documented in this [id number] Emergency department Note* Fany De Leon - 02/14/2025 9:50 AM EDT Meal Tray delivered at this time. [id number] Emergency department Note* Selena Simms RN - 02/14/2025 7:25 AM EDT Bed: 35 Expected date: Expected time: Means of arrival: Comments: RM 25 [id number] Emergency department Note* Meaghan Butler RN - [...] via nasal cannula Current Needs Required 2 Telemetry:Lime Puller On: Yes LDAs: Peripheral IV 02/13/25 Anterior;Right [...] Call light within reach, Assist with ambulation [id number] Emergency department Note* Meaghan Butler RN - 02/14/2025 6:19 AM EDT Hourly rounding assessment completed on the patient. [x] Patient updated on plan of care [x] All comfort needs addressed [x] Patient updated on duration of visit All questions answered, patient denies further needs. Call light within reach. [id number] Emergency department Note* Meaghan Butler RN - 02/14/2025 5:30 AM EDT Hourly rounding assessment completed on the patient. [x] Patient updated on plan of care [x] All comfort needs addressed [x] Patient updated on duration of visit All questions answered, patient denies further needs. Call light within reach. [id number] Emergency department Note* Meaghan Butler RN - 02/14/2025 4:28 AM EDT Hourly rounding assessment completed on the patient. [x] Patient updated on plan of care [x] All comfort needs addressed [x] Patient updated on duration of visit All questions answered, patient denies further needs. Call light within reach. [id number] Emergency department Note* Meaghan Butler RN - 02/14/2025 3:30 AM EDT Hourly rounding assessment completed on the patient. [x] Patient updated on plan of care [x] All comfort needs addressed [x] Patient updated on duration of visit All questions answered, patient denies further needs. Call light within reach. [id number] Emergency department Note* Meaghan Butler RN - 02/14/2025 2:44 AM EDT Hourly rounding assessment completed on the patient. [x] Patient updated on plan of care [x] All comfort needs addressed [x] Patient updated on duration of visit All questions answered, patient denies further needs. Call light within reach. [id number] Emergency department Note* Meaghan Butler RN - 02/14/2025 1:30 AM EDT Hourly rounding assessment completed on the patient. [x] Patient updated on plan of care [x] All comfort needs addressed [x] Patient updated on duration of visit All questions answered, patient denies further needs. Call light within reach. [id number] Emergency department Note* Meaghan Butler RN - 02/14/2025 12:03 AM EDT Hourly rounding assessment completed on the patient. [x] Patient updated on plan of care [x] All comfort needs addressed [x] Patient updated on duration of visit All questions answered, patient denies further needs. Call light within reach. [id number] Emergency department Note* Meaghan Butler RN - 02/13/2025 11:16 PM EDT Hourly rounding assessment completed on the patient. [x] Patient updated on plan of care [x] All comfort needs addressed [x] Patient updated on duration of visit All questions answered, patient denies further needs. Call light within reach. T [id number] History and physical note* Susan Thakur MD - 02/13/2025 8:20 PM EDT [facility] -- [facility] Patient Name: Radha Shafer : 1960 MR #: [id number] Admit Date: 02/13/2025 Physicians: No, Physician (Family); No ref. provider found (Referring) Radha Shafer is a 64 y.o. female patient of No, Physician with history of COPD on home oxygen, struct of sleep apnea, hypertension, chronic kidney disease, hypothyroidism, CPT deficiency presented to [facility] on 02/13/2025 with shortness of breath. Shortness [...] ALTEMEIER PROCEDURE; Surgeon: Jada Vargas MD; Location: [facility] Main OR; Service: Colorectal CARDIAC CATHETERIZATION N/A 09/26/2022 Procedure: Coronary Angiogram; Surgeon: Tor Long MD; Location: [facility]; Service: Cardiovascular CARDIOVASCULAR STRESS TEST CHOLECYSTECTOMY COLONOSCOPY with biopsies COLONOSCOPY N/A 02/17/2022 Procedure: COLONOSCOPY; Surgeon: Jada Vargas MD; Location: [facility] Endo; Service: Colorectal EGD N/A 08/15/2022 Procedure: ESOPHAGOGASTRODUODENOSCOPY WITH BIOPSY; Surgeon: Tyshawn Santos MD; Location: Endo; Service: Gastroenterology GALLBLADDER HC LEFT HEART CATH N/A 09/26/2022 Procedure: Left Heart Cath; Surgeon: Tor Long MD; Location: [facility]; Service: Cardiovascular HYSTERECTOMY JOINT REPLACEMENT Left knee ORTHOPEDIC SURGERY r wrist surgery, left ankle, right rotator cuff ROTATOR CUFF REPAIR Right SIGMOIDOSCOPY FLEXIBLE N/A 06/23/2022 Procedure: SIGMOIDOSCOPY FLEXIBLE WITH BIOPSY; Surgeon: Tyshawn Santos MD; Location: [facility]; Service: Gastroenterology THYROIDECTOMY N/A 07/15/2015 Procedure: TOTAL THYROIDECTOMY; Surgeon: Lopez Alonso MD; Location: [facility]UR[facility] OR; Service: US ECHO TRANSTHORACIC [...] 5' 5 Wt 98 kg (216 lb) MlF763% BMI 35.94 kg/m General Appearance: alert; acutely [...] 07/10/2013 Years since quittin.6 Smokeless Tobacco Never [id number] NoteHMS HISTORY AND PHYSICAL -- [facility] Patient Name: Radha Shafer : 1960 MR #: [id number] Admit Date: 02/13/2025 Physicians: No, Physician (Family); No ref. provider found (Referring) Radha Shafer is a 64 y.o. female patient of Erin, Physician with history of COPD on home oxygen, struct of sleep apnea, hypertension, chronic kidney disease, hypothyroidism, CPT deficiency presented to [facility] on 02/13/2025 with shortness of breath. Shortness [...] ALTEMEIER PROCEDURE; Surgeon: Jada Vargas MD; Location: [facility] Main OR; Service: Colorectal CARDIAC CATHETERIZATION N/A 09/26/2022 Procedure: Coronary Angiogram; Surgeon: Tor Long MD; Location: [facility]; Service: Cardiovascular CARDIOVASCULAR STRESS TEST CHOLECYSTECTOMY COLONOSCOPY with biopsies COLONOSCOPY N/A 02/17/2022 Procedure: COLONOSCOPY; Surgeon: Jada Vargas MD; Location: [facility] Endo; Service: Colorectal EGD N/A 08/15/2022 Procedure: ESOPHAGOGASTRODUODENOSCOPY WITH BIOPSY; Surgeon: Tyshawn Santos MD; Location: Endo; Service: Gastroenterology GALLBLADDER HC LEFT HEART CATH N/A 09/26/2022 Procedure: Left Heart Cath; Surgeon: Tor Long MD; Location: [facility]; Service: Cardiovascular HYSTERECTOMY JOINT REPLACEMENT Left knee ORTHOPEDIC SURGERY r wrist surgery, left ankle, right rotator cuff ROTATOR CUFF REPAIR Right SIGMOIDOSCOPY FLEXIBLE N/A 06/23/2022 Procedure: SIGMOIDOSCOPY FLEXIBLE WITH BIOPSY; Surgeon: Tyshawn Santos MD; Location: [facility]; Service: Gastroenterology THYROIDECTOMY N/A 07/15/2015 Procedure: TOTAL THYROIDECTOMY; Surgeon: Lopez Alonso MD; Location: [facility] OR; Service: US ECHO TRANSTHORACIC FOLLOWUP LIMITED WRIST SURGERY Right Family History Family History Problem Relation Age of Onset Heart disease Mother Lupus Mother Stroke Mother Arthrit (more content not included)...[facility]04-10-2025 History and physical note* Susan Thakur MD - 02/13/2025 8:20 PM EDT [facility] -- [facility] Patient Name: Radha Shafer : 1960 MR #: [id number] Admit Date: 02/13/2025 Physicians: No, Physician (Family); No ref. provider found (Referring) Radha Shafer is a 64 y.o. female patient of No, Physician with history of COPD on home oxygen, struct of sleep apnea, hypertension, chronic kidney disease, hypothyroidism, CPT deficiency presented to [facility] on 02/13/2025 with shortness of breath. Shortness [...] ALTEMEIER PROCEDURE; Surgeon: Jada Vargas MD; Location: [facility] Main OR; Service: Colorectal CARDIAC CATHETERIZATION N/A 09/26/2022 Procedure: Coronary Angiogram; Surgeon: Tor Long MD; Location: [facility]; Service: Cardiovascular CARDIOVASCULAR STRESS TEST CHOLECYSTECTOMY COLONOSCOPY with biopsies COLONOSCOPY N/A 02/17/2022 Procedure: COLONOSCOPY; Surgeon: Jada Vargas MD; Location: [facility] Endo; Service: Colorectal EGD N/A 08/15/2022 Procedure: ESOPHAGOGASTRODUODENOSCOPY WITH BIOPSY; Surgeon: Tyshawn Santos MD; Location: Endo; Service: Gastroenterology GALLBLADDER HC LEFT HEART CATH N/A 09/26/2022 Procedure: Left Heart Cath; Surgeon: Tor Long MD; Location: [facility]; Service: Cardiovascular HYSTERECTOMY JOINT REPLACEMENT Left knee ORTHOPEDIC SURGERY r wrist surgery, left ankle, right rotator cuff ROTATOR CUFF REPAIR Right SIGMOIDOSCOPY FLEXIBLE N/A 06/23/2022 Procedure: SIGMOIDOSCOPY FLEXIBLE WITH BIOPSY; Surgeon: Tyshawn Santos MD; Location: [facility]; Service: Gastroenterology THYROIDECTOMY N/A 07/15/2015 Procedure: TOTAL THYROIDECTOMY; Surgeon: Lopez Alonso MD; Location: [facility] OR; Service: US ECHO TRANSTHORACIC [...] quittin.6 Smokeless Tobacco Never documented in this [id number] Procedure note* ED Procedure Note - Astrid [...] without acute dynamic changes, no STEMI. NSR. WI interval 144 ms. QRS 90 ms. BPM: 94 Clinical impression: normal ECG [id number] Emergency department Note* Mihaela Chavez RN - 02/13/2025 5:18 PM EDT Received call from Lab, states CPK result will be delayed d/t machine down for maintenance Dr Sanders updated [id number] Procedure note* ED Procedure Note - Astrid [...] ECG and sinus tachycardia Comments: Sinus tachycardia. WI interval 140 ms. QRS [address] and T wave abnormality. No STEMI. [id number] Physician Emergency department Note* Astrid Sanders DO - 02/13/2025 4:07 PM EDT EMERGENCY MEDICINE PROVIDER NOTE WELCOME TO [facility] NAME: Radha Shafer AGE: 64 y.o. SEX: female : 1960 ENCOUNTER DATE: 02/13/25 CSN: [id number] PCP: Erin, Physician History of Presenting Illness/Medical [...] was given 4 baby aspirin by EMS MOBILE EQUIPMENT MECHANIC. No nitroglycerin. Patient states that she was [...] ear normal. Nose: Nose normal. Mouth/Throat: Lips: Plain. Mouth: Mucous membranes are moist. Eyes: General: [...] All other components within normal limits Narrative: [facility] has implemented the eGFR calculation [...] Procedure Abnormality Status --------- ------ CBC Auto Differential[[id number]] Abnormal Final result Please view results for these tests on the individual orders. OBTAIN VENOUS BLOOD GASES AND PERFORM CPK TSH BASIC METABOLIC PANEL MAGNESIUM LEVEL CBC AND DIFFERENTIAL Narrative: The following orders were created for panel order CBC and Differential. Procedure Abnormality Status --------- ------ CBC Auto Differential[[id number]] Please view results for these tests on [...] ALTEMEIER PROCEDURE; Surgeon: Jada Vargas MD; Location: [facility] Main OR; Service: Colorectal CARDIAC CATHETERIZATION N/A 09/26/2022 Procedure: Coronary Angiogram; Surgeon: Tor Long MD; Location: [facility]; Service: Cardiovascular CARDIOVASCULAR STRESS TEST CHOLECYSTECTOMY COLONOSCOPY with biopsies COLONOSCOPY N/A 02/17/2022 Procedure: COLONOSCOPY; Surgeon: Jada Vargas MD; Location: [facility] Endo; Service: Colorectal EGD N/A 08/15/2022 Procedure: ESOPHAGOGASTRODUODENOSCOPY WITH BIOPSY; Surgeon: Tyshawn Santos MD; Location: Endo; Service: Gastroenterology GALLBLADDER HC LEFT HEART CATH N/A 09/26/2022 Procedure: Left Heart Cath; Surgeon: Tor Long MD; Location: [facility]; Service: Cardiovascular HYSTERECTOMY JOINT REPLACEMENT Left knee ORTHOPEDIC SURGERY r wrist surgery, left ankle, right rotator cuff ROTATOR CUFF REPAIR Right SIGMOIDOSCOPY FLEXIBLE N/A 06/23/2022 Procedure: SIGMOIDOSCOPY FLEXIBLE WITH BIOPSY; Surgeon: Tyshawn Santos MD; Location: [facility]; Service: Gastroenterology THYROIDECTOMY N/A 07/15/2015 Procedure: TOTAL THYROIDECTOMY; Surgeon: Lopez Alonso MD; Location: [facility] OR; Service: US ECHO TRANSTHORACIC [...] total) by mouth daily with breakfast . eydqsoziqil-hxwhsyalg-jhkyihky (Trelegy Ellipta) 200-62.5-25 mcg DsDv Inhale 1 [...] kidney disease) stage 3, GFR 30-59 ml/min ([facility]) 06/26/2022 Pain of upper abdomen 07/19/2022 Nausea 07/19/2022 Acute hypercapnic respiratory failure ([facility]) 09/02/2024 COPD exacerbation ([facility]) 09/21/2024 Resolved Ambulatory Problems Diagnosis Date [...] over 89 ml/min) Lung nodule Neuromuscular disorder ([facility]) 2015 Obesity On home oxygen therapy [...] 5' 5 Wt 98 kg (216 lb) OzS464% BMI 35.94 kg/m In brief, patient is [...] level and did provide 500 ccIVF, unfortunately laborer stores had called ED charge nurse to inform [...] Acid: 1.5 [ZW] 1716 Informed by ED general assembler that lab team had called to inform [...] (HCC) 7. 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 Myalgia Discussed with: Hospitalist ED Disposition ED Disposition Hospitalize Condition -- Comment Reason for inpatient over two midnights: IV lasix . . Astrid Sanders DO ED Attending Physician [facility] (Please note that portions of this note may have been completed with a voice recognition program. 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 Astrid Sanders DO 02/13/25 7879 [id number] Emergency department Triage note* Astrid Connolly RN - 02/13/2025 3:40 PM EDT Pt reports sob and chest pain with hx of copd. Pt was given asa and duoneb treatment. Pt reports feeling much better after duoneb [id number] Emergency department Note* Marina Prado RN - 02/13/2025 3:40 PM EDT Bed: 25 Expected date: Expected time: Means of arrival: Comments: Nick [id number] Telephone encounter Note* Telephone Encounter - Julissa Parikh MA - 02/05/2025 7:33 AM EDT Received messaging requesting refill from [facility] Medication: Doljovi Last Office Visit: 06/03/2024 Next Scheduled Visit: Not scheduled Current Medication as of last visit (yes/no): yes [facility]04-02-2025 Miscellaneous Notes* Telephone Encounter - Julissa Parikh MA - 02/05/2025 7:33 AM EDT Received messaging requesting refill from [facility] Medication: Doljovi Last Office Visit: 06/03/2024 Next Scheduled Visit: Not scheduled Current Medication as of last visit (yes/no): yes documented in [facility] Evaluation note* Diagnosis Onset Date [...] 16 1:12pm Chronic abdominal pain noneactive [facility] 2024 1:12pm Post-operative hypothyroidism noneac tive 2025 1:12pm Ventricular tachycardia noneactive [facility] 2024 1:12pm Essential hypertension noneactive [facility] 2024 1:12pm COPD (chronic obstructive pulmonary disease) noneactive April 16 1:12pm Obesity (BMI 30-39.9) noneactive Michael e 2024 1:12pm [facility] Work Phone: 1(641) 892-271902-20-2025 Evaluation note* Diagnosis Onset Date Resolution Status [...] cuff acute April 03, 2025 1 :50pm [facility] Work Phone: 1(471) 969-3024396090-06-3742 Evaluation note* Diagnosis Onset Date Resolution Status [...] apnea) chroni c April 04, 2025 1:38pm [facility] Work Phone: 1(958) 606-816502-20-2025 Evaluation note* Diagnosis Onset Date Resolution Status [...] noneactive 2025 1:12pm Chronic abdominal pain noneactive [facility] 2024 1:12pm Post-operative hypothyroidism noneac tive 2025 1:12pm Ventricular tachycardia noneactive [facility] 2024 1:12pm Essential hypertension noneactive [facility] 2024 1:12pm COPD (chronic obstructive pulmonary disease) noneactive April 16 1:12pm Obesity (BMI 30-39.9) noneactive [facility] 2024 1:12pm [facility] Work Phone: 1(462) 669-645902-20-2025 Evaluation note* Diagnosis Onset Date Resolution Status [...] noneac tive 2025 1:12pm Ventricular tachycardia noneactive [facility] 2024 1:12pm Essential hypertension noneactive 2024 1:12pm COPD (chronic obstructive pulmonary disease) noneactive April 16 1:12pm Obesity (BMI 30-39.9) noneactive Michael 2024 1:12pm [facility] Work Phone: 1(623) 513-222712-11-2024 Evaluation note* Diagnosis Onset Date Resolution Status [...] shoulder pain acute January 21, 2025 12:57pm [facility] Work Phone: 1([phone] 743-926412-10-2024 Telephone encounter Note* Telephone Encounter - Cecille Johnson LPN - 10/15/2024 1:57 PM EST Images from the original note were not included. PA for Dojolvi approved by [employer] valid 11/06/2024- 11/05/2025 PA# [id number] Updated: Genetics PA calendar Medication comments Copy of approval letter sent to HIM [facility]12-10-2024 Miscellaneous Notes* Telephone Encounter - Cecille Johnson LPN - 10/15/2024 1:57 PM EST Images from the original note were not included. PA for Dojolvi approved by [employer] valid 11/06/2024- 11/05/2025 PA# [id number] Updated: Genetics PA calendar Medication comments Copy of approval letter sent to HIM * Telephone Encounter - Cecille Johnson LPN - 10/15/2024 10:43 AM EST Images from the original note were not included. Received PA renewal request for Dojolvi from [employer] as current PA mateo 11/05. PA submitted with office notes and labs via CMM. [facility] Telephone encounter Note* Telephone Encounter - Cecille Johnson LPN - 10/15/2024 10:43 AM EST Images from the original note were not included. Received PA renewal request for Dojolvi from [employer] as current PA mateo 11/05. PA submitted with office notes and labs via CMM. [facility]11-20-2024 History of Present illness Narrative* Marsha Miguel [...] Discharge Plan Status: In-basket message received from [employer]. Patient has [employer] Medicaid which will not [...] Alcazar MD - 09/24/2024 12:20 PM EST [facility] [place] Assessment and Plan Radha Shafer is a 64 y.o. female smoker with background history of COPD and attendant chronic respiratory failure on 4 L NC at baseline, FELISA, HTN, CKD, hypothyroidism and CPT deficiency who presented to [facility] on 09/21/2024 with SOB. CXR showed no [...] deficiency CPK chronically elevated. She follows with [facility] Liberalize oral intake. Morbid obesity [...] Larson MD - 09/23/2024 3:32 PM EST PVHT-DD-LDVZ ENCOUNTER FOR HOME MEDICAL EQUIPMENT PATIENT: Radha Shafer : 1960 Statement of Care: I certify that Radha Shafer is under my care and that I, a Nurse Practitioner, Physician's Durable Medical Equipment Technician, or Resident working with me, had a juhu-bv-hmrb encounter with this patient today to evaluate and discuss the need for home medical equipment. I certify that based on the findings of this evaluation, which included but was not limited to the sioj-sn-wokz requirements, the following home medical equipment is medically necessary: Shower chairand grab bar. Signed by: Chanel Larson MD on 09/23/2024 * Chanel Larson MD - 09/23/2024 3:28 PM EST [facility] PROGRESS [place] Assessment and Plan Radha Shafer is a 64 y.o. female smoker with background history of COPD and attendant chronic respiratory failure on 4 L NC at baseline, FELISA, HTN, CKD, hypothyroidism and CPT deficiency who presented to [facility] on 09/21/2024 with SOB. CXR showed no [...] deficiency CPK chronically elevated. She follows with [facility] Liberalize oral intake. Resolved acute [...] Larson MD - 09/22/2024 9:45 AM EST [facility] PROGRESS NOTE Assessment and Plan Assessment and Plan Radha Shafer is a 64 y.o. female smoker with background history of COPD and attendant chronic respiratory failure on 4 L NC at baseline, FELISA, HTN, CKD, hypothyroidism and CPT deficiency who presented to [facility] on 09/21/2024 with SOB. CXR showed no [...] deficiency CPK chronically elevated. She follows with [facility] CK 713. Continue gentle fluid [...] and affect, no agitation documented in this [id number] Miscellaneous Notes* Quick Note - Emy Strickland [...] nebulizer and MDI as needed. Discussed associated intermediate issues with non compliant FELISA. * [...] functioning Outcome: Partially Met documented in this [id number] Progress note* Quick Note - Emy Strickland RN - 09/25/2024 12:30 PM EST Charting of SN Caity Flores reviewed [id number] NoteHMS DISCHARGE SUMMARY -- [facility] Radha Shafer Admitted: 09/21/2024 Discharge Date: 09/25/24 PCP Handoff Recommended Outpatient Testing Follow-up with PCP Results Pending At Discharge Stool PCR Clinical Summary Radha Shafer is a 64 y.o. female smoker with background history of COPD and attendant chronic respiratory failure on 4 L NC at baseline, FELISA, HTN, CKD, hypothyroidism and CPT deficiency who presented to [facility] on 09/21/2024 with SOB. CXR showed no [...] deficiency CPK chronically elevated. She follows with [facility] Liberalize oral intake. Morbid obesity [...] 1 (one) capsule ( (more content not included)...[facility] 09-25-2024 Hospital course Narrative* Jossie Alcazar MD - 09/25/2024 11:04 AM EST Images from the original note were not included. [facility] DISCHARGE SUMMARY -- [facility] Radha Shafer Admitted: 09/21/2024 Discharge Date: 09/25/24 PCP Handoff Recommended Outpatient Testing Follow-up with PCP Results Pending At Discharge Stool PCR Clinical Summary Radha Shafer is a 64 y.o. female smoker with background history of COPD and attendant chronic respiratory failure on 4 L NC at baseline, FELISA, HTN, CKD, hypothyroidism and CPT deficiency who presented to [facility] on 09/21/2024 with SOB. CXR showed no [...] deficiency CPK chronically elevated. She follows with [facility] Liberalize oral intake. Morbid obesity [...] Trelegy Ellipta 200-62.5-25 mcg Dsdv Generic drug: lqjruqsufvv-ytplozecj-qzmedtnn Inhale 1 (one) Inhalation daily . Quantity: [...] on 09/25/24, 11:04 AM documented in this [id number] Plan of care note* Plan of Care [...] maximum level of psychosocial functioning Outcome: Met [id number] NoteHMS PROGRESS NOTE Assessment and Plan Radha Shafer is a 64 y.o. female smoker with background history of COPD and attendant chronic respiratory failure on 4 L NC at baseline, FELISA, HTN, CKD, hypothyroidism and CPT deficiency who presented to [facility] on 09/21/2024 with SOB. CXR showed no [...] deficiency CPK chronically elevated. She follows with [facility] Liberalize oral intake. Morbid obesity [...] agitation AUTHENTICATED BY JOSSIE ALCAZAR ON 09/24/2024 12:24:12[facility] 09-24-2024 Progress note* Quick Note - Antionette [...] and MDI as needed. Discussed associated manager terminal issues with non compliant FELISA. [id number] Plan of care note* Plan of Care [...] by Jaspreet Barnes RN Outcome: Partially Met [id number] Plan of care note* Plan of Care [...] level of psychosocial functioning Outcome: [facility]ially Met [facility] HospitalSyjv[facility]oeuxa16-65-9119 Plan of care note* Plan of Care [...] level of psychosocial functioning Outcome: Partially Met [facility] HospitalMkahMiwnvw19-90-8057 PhenVLVN-YF-AYRM ENCOUNTER FOR HOME MEDICAL EQUIPMENT PATIENT: Radha Shafer : 1960 Statement of Care: I certify that Radha Shafer is under my care and that I, a Nurse Practitioner, Physician's Durable Medical Equipment Technician, or Resident working with me, had a fxiy-xw-flhx encounter with this patient today to evaluate and discuss the need for home medical equipment. I certify that based on the findings of this evaluation, which included but was not limited to the rrzt-vh-odbx requirements, the following home medical equipment is medically necessary: Shower chair and grab bar. Signed by: Chanel Larson MD on 09/23/2024 AUTHENTICATED BY CHANEL LARSON, ON 09/23/2024 15:33:43[facility]11-18-2024 NoteHMS PROGRESS NOTE Assessment and Plan Radha Shafer is a 64 y.o. female smoker with background history of COPD and attendant chronic respiratory failure on 4 L NC at baseline, FELISA, HTN, CKD, hypothyroidism and CPT deficiency who presented to [facility] on 09/21/2024 with SOB. CXR showed no [...] deficiency CPK chronically elevated. She follows with [facility] Liberalize oral intake. Resolved acute [...] agitation AUTHENTICATED BY CHANEL LARSON, ON 09/23/2024 15:29:[address] [place], [place] 6377111-18-2024 Progress note* Quick Note - Brianna Tan, [...] within 6 days. JOLIE Chang, RASHEEDN, LD [id number] Consult note* Marsha Miguel, REGIONAL RECRUITER - 09/23/2024 11:46 AM ESTAssociated Order(s): IP CONSULT TO CARE MANAGEMENT Care Management Consult Note Date: 09/23/2024 Time: 11:56 AM Patient Name: Radha Shafer Date of : 1960 Reason for Consult: Discharge Plan: Plan A: Home Discharging Transportation Plan: Discharge Plan Status: Spoke with Dr. Larson. Patient was requesting to speak with licensed social worker. In to see patient. Patient [...] reports she follows with Dr. Gordon in [place] for primary care. Patient requesting grab bars, a shower chair, and a wedge for sleeping. No other needs identified at this time. Spoke with Aramis with [employer]. [employer] does not have wedge pillows. Secure chat sent to Dr. Larson regarding need for shower chair and grab bar. In-basket message sent to [employer]. Assessment and Background Information: Living Arrangements: Children [...] (!) Yes Location of chronic pain:: back [id number] Consult note* Marsha Miguel LISW - 09/23/2024 11:46 AM ESTAssociated Order(s): IP CONSULT TO CARE MANAGEMENT Care Management Consult Note Date: 09/23/2024 Time: 11:56 AM Patient Name: Radha Shafer Date of : 1960 Reason for Consult: Discharge Plan: Plan A: Home Discharging Transportation Plan: Discharge Plan Status: Spoke with Dr. Larson. Patient was requesting to speak with licensed social worker. In to see patient. Patient [...] reports she follows with Dr. Gordon in [place] for primary care. Patient requesting grab bars, a shower chair, and a wedge for sleeping. No other needs identified at this time. Spoke with Aramis with [employer]. [employer] does not have wedge pillows. Secure chat sent to Dr. Larson regarding need for shower chair and grab bar. In-basket message sent to [employer]. Assessment and Background Information: Living Arrangements: Children [...] of chronic pain:: back documented in this [id number] Plan of care note* Plan of Care [...] level of psychosocial functioning Outcome: Partially Met [id number] NoteHMS PROGRESS NOTE Assessment and Plan Assessment and Plan Radha Shafer is a 64 y.o. female smoker with background history of COPD and attendant chronic respiratory failure on 4 L NC at baseline, FELISA, HTN, CKD, hypothyroidism and CPT deficiency who presented to [facility] on 09/21/2024 with SOB. CXR showed no [...] deficiency CPK chronically elevated. She follows with [facility] CK 713. Continue gentle fluid [...] agitation AUTHENTICATED BY CHANEL LARSON, ON 09/23/2024 15:32:03[facility]11-17-2024 Plan of care note* Plan of Care [...] level of psychosocial functioning Outcome: Partially Met [id number] Emergency department Note* Meaghan Butler RN - 09/21/2024 11:10 PM EST Report given to room 3718 nurse [id number] Emergency department Note* Meaghan Butler RN - 09/21/2024 11:10 PM EST Spoke with [facility]. Pt had methylprednisolone at 2110. Next dose to be given 8 hours later [id number] Emergency department Note* Meaghan Butler RN - 09/21/2024 11:10 PM EST Report given to room 3718 nurse * Meaghan Butler RN - 09/21/2024 11:10 PM EST Spoke with [facility]. Pt had methylprednisolone at 2110. Next dose [...] Talbot MD - 09/21/2024 8:43 PM EST [facility] ED note NAME: Radha Shafer 64 y.o. CSN: [id number] PCP: No, Physician History: Chief Complaint: Shortness [...] ALTEMEIER PROCEDURE; Surgeon: Jada Vargas MD; Location: [facility] Main OR; Service: Colorectal CARDIAC CATHETERIZATION N/A 09/26/2022 Procedure: Coronary Angiogram; Surgeon: Tor Long MD; Location: [facility]; Service: Cardiovascular CARDIOVASCULAR STRESS TEST CHOLECYSTECTOMY COLONOSCOPY with biopsies COLONOSCOPY N/A 02/17/2022 Procedure: COLONOSCOPY; Surgeon: Jada Vargas MD; Location: [facility] Endo; Service: Colorectal EGD N/A 08/15/2022 Procedure: ESOPHAGOGASTRODUODENOSCOPY WITH BIOPSY; Surgeon: Tyshawn Santos MD; Location: [facility]; Service: Gastroenterology GALLBLADDER HC LEFT HEART CATH N/A 09/26/2022 Procedure: Left Heart Cath; Surgeon: Tor Long MD; Location: [facility]; Service: Cardiovascular HYSTERECTOMY JOINT REPLACEMENT Left knee ORTHOPEDIC SURGERY r wrist surgery, left ankle, right rotator cuff ROTATOR CUFF REPAIR Right SIGMOIDOSCOPY FLEXIBLE N/A 06/23/2022 Procedure: SIGMOIDOSCOPY FLEXIBLE WITH BIOPSY; Surgeon: Tyshawn Santos MD; Location: [facility]; Service: Gastroenterology THYROIDECTOMY N/A 07/15/2015 Procedure: TOTAL THYROIDECTOMY; Surgeon: Lopez Alonso MD; Location: [facility] OR; Service: US ECHO TRANSTHORACIC [...] Socioeconomic History Marital status: Occupational History 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 tcanxagumeu-mpsigbvaw-akfllgbi (Trelegy Ellipta) 200-62.5-25 mcg DsDv Inhale 1 [...] All other components within normal limits Narrative: [facility] has implemented the eGFR calculation [...] Procedure Abnormality Status --------- ------ CBC Auto Differential[[id number]] Abnormal Final result Please view results for these tests on the individual orders. 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 Hx of colonic polyps 01/07/2022 Rectal prolapse 03/01/2022 Diarrhea 06/21/2022 Non-traumatic rhabdomyolysis 06/25/2022 KRISTIN (acute kidney injury) ([facility]) 06/26/2022 CKD (chronic kidney disease) stage 3, GFR 30-59 ml/min ([facility]) 06/26/2022 Pain of upper abdomen 07/19/2022 Nausea 07/19/2022 Acute hypercapnic respiratory failure ([facility]) 09/02/2024 Resolved Ambulatory Problems Diagnosis Date Noted No Resolved Ambulatory Problems Past Medical History: Diagnosis Date Anxiety Arthritis Back pain Bladder problem Cancer (HCC) Chronic pain disorder Colitis COPD (chronic obstructive pulmonary disease) ([facility]) Depression Diabetes (HCC) Diverticulosis Emphysema of lung [...] None Sally Talbot MD ED Attending Physician [facility] Emergency Department (Please note that portions [...] date: Expected time: Means of arrival: Comments: [place] documented in this [id number] Emergency department Note* Meaghan Butler RN - 09/21/2024 10:14 PM EST Hourly rounding assessment completed on the patient. [x] Patient updated on plan of care [x] All comfort needs addressed [x] Patient updated on duration of visit All questions answered, patient denies further needs. Call light within reach. [id number] History and physical note* Nabila Chavez MD - 09/21/2024 10:01 PM EST [facility] HISTORY AND PHYSICAL -- [facility] Patient Name: Radha Shafer : 1960 MR #: [id number] Admit Date: 09/21/2024 Physicians: Erin, Physician (Family); No ref. provider found (Referring) Radha Shafer is a 64 y.o. female patient of Erin, Physician with history of COPD, chronic hypoxemic respiratory failure on 4L NC at baseline, hypothyroidism, CPT deficiency, HTN, CKD, FELISA presentedto [facility] on 09/21/2024 with shortness of breath. Assessment/plan [...] of breath History of Present Illness Radha Shaefr is a 64 y.o. female patient of , Physician with history of COPD, chronic hypoxemic respiratory failure on 4L NC at baseline, hypothyroidism, CPT deficiency, HTN, CKD, FELISA presented to [facility] on 09/21/2024 with shortness of breath. Patient [...] ALTEMEIER PROCEDURE; Surgeon: Jada Vargas MD; Location: [facility] Main OR; Service: Colorectal CARDIAC CATHETERIZATION N/A 09/26/2022 Procedure: Coronary Angiogram; Surgeon: Tor Long MD; Location: [facility]; Service: Cardiovascular CARDIOVASCULAR STRESS TEST CHOLECYSTECTOMY COLONOSCOPY with biopsies COLONOSCOPY N/A 02/17/2022 Procedure: COLONOSCOPY; Surgeon: Jada Vargas MD; Location: [facility] Endo; Service: Colorectal EGD N/A 08/15/2022 Procedure: ESOPHAGOGASTRODUODENOSCOPY WITH BIOPSY; Surgeon: Tyshawn Santos MD; Location: Endo; Service: Gastroenterology GALLBLADDER HC LEFT HEART CATH N/A 09/26/2022 Procedure: Left Heart Cath; Surgeon: Tor Long MD; Location: [facility]; Service: Cardiovascular HYSTERECTOMY JOINT REPLACEMENT Left knee ORTHOPEDIC SURGERY r wrist surgery, left ankle, right rotator cuff ROTATOR CUFF REPAIR Right SIGMOIDOSCOPY FLEXIBLE N/A 06/23/2022 Procedure: SIGMOIDOSCOPY FLEXIBLE WITH BIOPSY; Surgeon: Tyshawn Santos MD; Location: Endo; Service: Gastroenterology THYROIDECTOMY N/A 07/15/2015 Procedure: TOTAL THYROIDECTOMY; Surgeon: Lopez Alonso MD; Location: [facility]; Service: US ECHO TRANSTHORACIC [...] normal coloration Psych: normal mood and affect [id number] NoteHMS HISTORY AND PHYSICAL -- [facility] Patient Name: Radha Shafer : 1960 MR #: [id number] Admit Date: 09/21/2024 Physicians: No, Physician (Family); No ref. provider found (Referring) Radha Shafer is a 64 y.o. female patient of No, Physician with history of COPD, chronic hypoxemic respiratory failure on 4L NC at baseline, hypothyroidism, CPT deficiency, HTN, CKD, FELISA presented to [facility] on 09/21/2024 with shortness of breath. Assessment/plan [...] CPT deficiency, HTN, CKD, FELISA presented to [facility] on 09/21/2024 with shortness of breath. Patient [...] ALTEMEIER PROCEDURE; Surgeon: Jada Vargas MD; Location: [facility] Main OR; Service: Colorectal CARDIAC CATHETERIZATION N/A 09/26/2022 Procedure: Coronary Angiogram; Surgeon: Tor Long MD; Location: [facility]; Service: Cardiovascular CARDIOVASCULAR STRESS TEST CHOLECYSTECTOMY COLONOSCOPY with biopsies COLONOSCOPY N/A 02/17/2022 Procedure: COLONOSCOPY; Surgeon: Jada Vargas MD; Location: [facility] Endo; Service: Colorectal EGD N/A 08/15/2022 Procedure: ESOPHAGOGASTRODUODENOSCOPY WITH BIOPSY; Surgeon: Tyshawn Santos MD; Location: Endo; Service: Gastroenterology GALLBLADDER HC LEFT HEART CATH N/A 09/26/2022 Procedure: Left Heart Cath; Surgeon: Tor Long MD; Location: [facility]; Service: Cardiovascular HYSTERECTOMY (more content not included)...[facility]11-16-2024 History and physical note* Nabila Chavez MD - 09/21/2024 10:01 PM EST [facility] HISTORY AND PHYSICAL -- [facility] Patient Name: Radha Shafer : 1960 MR #: [id number] Admit Date: 09/21/2024 Physicians: No, Physician (Family); No ref. provider found (Referring) Radha Shafer is a 64 y.o. female patient of No, Physician with history of COPD, chronic hypoxemic respiratory failure on 4L NC at baseline, hypothyroidism, CPT deficiency, HTN, CKD, FELISA presentedto [facility] on 09/21/2024 with shortness of breath. Assessment/plan [...] CPT deficiency, HTN, CKD, FELISA presented to [facility] on 09/21/2024 with shortness of breath. Patient [...] ALTEMEIER PROCEDURE; Surgeon: Jada Vargas MD; Location: [facility] Main OR; Service: Colorectal CARDIAC CATHETERIZATION N/A 09/26/2022 Procedure: Coronary Angiogram; Surgeon: Tor Long MD; Location: [facility]; Service: Cardiovascular CARDIOVASCULAR STRESS TEST CHOLECYSTECTOMY COLONOSCOPY with biopsies COLONOSCOPY N/A 02/17/2022 Procedure: COLONOSCOPY; Surgeon: Jada Vargas MD; Location: [facility] Endo; Service: Colorectal EGD N/A 08/15/2022 Procedure: ESOPHAGOGASTRODUODENOSCOPY WITH BIOPSY; Surgeon: Tyshawn Santos MD; Location: Endo; Service: Gastroenterology GALLBLADDER HC LEFT HEART CATH N/A 09/26/2022 Procedure: Left Heart Cath; Surgeon: Tor Long MD; Location: [facility]; Service: Cardiovascular HYSTERECTOMY JOINT REPLACEMENT Left knee ORTHOPEDIC SURGERY r wrist surgery, left ankle, right rotator cuff ROTATOR CUFF REPAIR Right SIGMOIDOSCOPY FLEXIBLE N/A 06/23/2022 Procedure: SIGMOIDOSCOPY FLEXIBLE WITH BIOPSY; Surgeon: Tyshawn Santos MD; Location: Endo; Service: Gastroenterology THYROIDECTOMY N/A 07/15/2015 Procedure: TOTAL THYROIDECTOMY; Surgeon: Lopez Alonso MD; Location: [facility]; Service: US ECHO TRANSTHORACIC [...] normal mood and affect documented in this [id number] Emergency department Note* Meaghan Butler RN - 09/21/2024 9:50 PM EST Hourly rounding assessment completed on the patient. [x] Patient updated on plan of care [x] All comfort needs addressed [x] Patient updated on duration of visit All questions answered, patient denies further needs. Call light within reach. [id number] Emergency department Note* Delmy Brock RRT - 09/21/2024 9:14 PM EST RT at bedside for ABG. Results given to . BiPAP initiated 21/04 rate of 18, FiO2 of 35%. Patient does state she wears 4L O2 at home around the clock and is noncompliant with her home CPAP.Patient educated on the importance of wearing her CPAP at night regularly. [id number] Physician Emergency department Note* Sally Talbot MD - 09/21/2024 8:43 PM EST [facility] ED note NAME: Radha Shafer 64 y.o. CSN: [id number] PCP: No, Physician History: Chief Complaint: Shortness [...] ALTEMEIER PROCEDURE; Surgeon: Jada Vargas MD; Location: [facility] Main OR; Service: Colorectal CARDIAC CATHETERIZATION N/A 09/26/2022 Procedure: Coronary Angiogram; Surgeon: Tor Long MD; Location: [facility]; Service: Cardiovascular CARDIOVASCULAR STRESS TEST CHOLECYSTECTOMY COLONOSCOPY with biopsies COLONOSCOPY N/A 02/17/2022 Procedure: COLONOSCOPY; Surgeon: Jada Vargas MD; Location: [facility] Endo; Service: Colorectal EGD N/A 08/15/2022 Procedure: ESOPHAGOGASTRODUODENOSCOPY WITH BIOPSY; Surgeon: Tyshawn Santos MD; Location: Endo; Service: Gastroenterology GALLBLADDER HC LEFT HEART CATH N/A 09/26/2022 Procedure: Left Heart Cath; Surgeon: Tor Long MD; Location: [facility]; Service: Cardiovascular HYSTERECTOMY JOINT REPLACEMENT Left knee ORTHOPEDIC SURGERY r wrist surgery, left ankle, right rotator cuff ROTATOR CUFF REPAIR Right SIGMOIDOSCOPY FLEXIBLE N/A 06/23/2022 Procedure: SIGMOIDOSCOPY FLEXIBLE WITH BIOPSY; Surgeon: Tyshawn Santos MD; Location: Endo; Service: Gastroenterology THYROIDECTOMY N/A 07/15/2015 Procedure: TOTAL THYROIDECTOMY; Surgeon: Lopez Alonso MD; Location: [facility]; Service: US ECHO TRANSTHORACIC [...] Socioeconomic History Marital status: Occupational History Occupation: [employer] 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 htnuvjdvzqb-grbkjfpnj-lfjlgnkn (Trelegy Ellipta) 200-62.5-25 mcg DsDv Inhale 1 [...] All other components within normal limits Narrative: [facility] has implemented the eGFR calculation [...] Procedure Abnormality Status --------- ------ CBC Auto Differential[[id number]] Abnormal Final result Please view results for [...] Non-traumatic rhabdomyolysis 06/25/2022 KRISTIN (acute kidney injury) ([facility]) 06/26/2022 CKD (chronic kidney disease) stage 3, GFR 30-59 ml/min ([facility]) 06/26/2022 Pain of upper abdomen 07/19/2022 Nausea 07/19/2022 Acute hypercapnic respiratory failure ([facility]) 09/02/2024 Resolved Ambulatory Problems Diagnosis Date [...] over 89 ml/min) Lung nodule Neuromuscular disorder ([facility]) 2015 Obesity On home oxygen therapy [...] None Sally Talbot MD ED Attending Physician [facility] Emergency Department (Please note that portions of this note have been completed with a voice recognition software. Efforts were made to correct any errors, but occasionally words are mis-transcribed.) Sally Talbot MD 09/21/242158 [id number] Emergency department Note* Meaghan Butler RN - 09/21/2024 8:04 PM EST PT PLACED ON 4L FOR O2 AT 84% [address]. [id number] Emergency department Note* Meaghan Butler RN - 09/21/2024 8:00 PM EST Hourly rounding assessment completed on the patient. [x] Patient updated on plan of care [x] All comfort needs addressed [x] Patient updated on duration of visit All questions answered, patient denies further needs. Call light within reach. [id number] Emergency department Triage note* Meaghan Butler RN - 09/21/2024 7:53 PM EST PT ARRIVED VIA EMS WITH C/O SOB. 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 PT STATES THAT SHE STARTED WITH A HEADACHE THEN HEAVINESS IN CHEST HEAVINESS. PT ARRIVED TO ED ON 4L NC [id number] Emergency department Note* Selena Simms RN - 09/21/2024 7:52 PM EST Bed: 15 Expected date: Expected time: Means of arrival: Comments: Alireza [id number] NoteHeart & Vascular Clinic Note [facility] Visit Date: 09/18/2024 [...] #HTN #HLD #FELISA #ECHO; 04/2024. Done in [place]. LVEF-60% PLAN: --c/w metoprolol --pursue a cardiac [...] ALTEMEIER PROCEDURE; Surgeon: Jada Vargas MD; Location: [facility] Main OR; Service: Colorectal CARDIAC CATHETERIZATION N/A 09/26/2022 Procedure: Coronary Angiogram; Surgeon: Tor Long MD; Location: [facility]; Service: Cardiovascular CARDIOVASCULAR STRESS TEST CHOLECYSTECTOMY COLONOSCOPY with biopsies COLONOSCOPY N/A 02/17/2022 Procedure: COLONOSCOPY; Surgeon: Jada Vargas MD; Location: [facility] Endo; Service: Colorectal EGD N/A 08/15/2022 Procedure: ESOPHAGOGASTRODUODENOSCOPY WITH BIOPSY; Surgeon: Tyshawn Santos MD; Location: [facility]; Service: Gastroenterology GALLBLADDER HC LEFT HEART CATH N/A 09/26/2022 Procedure: Left Heart Cath; Surgeon: Tor Long MD; Location: [facility]; Service: Cardiovascular HYSTERECTOMY JOINT REPLACEMENT Left knee ORTHOPEDIC SURGERY r wrist surgery, left ankle, right rotator cuff ROTATOR CUFF REPAIR Right SIGMOIDOSCOPY FLEXIBLE N/A 06/23/2022 Procedure: SIGMOIDOSCOPY FLEXIBLE WITH BIOPSY; Surgeon: Tyshawn Santos MD; Location: Endo; Service: Gastroenterology THYROIDECTOMY N/A 07/15/2015 Procedure: TOTAL THYROIDECTOMY; Surgeon: Lopez Alonso MD; Location: [facility]; Service: US ECHO TRANSTHORACIC [...] Socioeconomic History Marital status: Occupational History 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: [employer] 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 Visit Date: 09/18/2024 [...] #HTN #HLD #FELISA #ECHO; 04/2024. Done in [place]. LVEF-60% PLAN: --c/w metoprolol --pursue a cardiac [...] ALTEMEIER PROCEDURE; Surgeon: Jada Vargas MD; Location: [facility] Main OR; Service: Colorectal CARDIAC CATHETERIZATION N/A 09/26/2022 Procedure: Coronary Angiogram; Surgeon: Tor Long MD; Location: [facility]; Service: Cardiovascular CARDIOVASCULAR STRESS TEST CHOLECYSTECTOMY COLONOSCOPY with biopsies COLONOSCOPY N/A 02/17/2022 Procedure: COLONOSCOPY; Surgeon: Jada Vargas MD; Location: [facility] Endo; Service: Colorectal EGD N/A 08/15/2022 Procedure: ESOPHAGOGASTRODUODENOSCOPY WITH BIOPSY; Surgeon: Tyshawn Santos MD; Location: Endo; Service: Gastroenterology GALLBLADDER HC LEFT HEART CATH N/A 09/26/2022 Procedure: Left Heart Cath; Surgeon: Tor Long MD; Location: [facility]; Service: Cardiovascular HYSTERECTOMY JOINT REPLACEMENT Left knee ORTHOPEDIC SURGERY r wrist surgery, left ankle, right rotator cuff ROTATOR CUFF REPAIR Right SIGMOIDOSCOPY FLEXIBLE N/A 06/23/2022 Procedure: SIGMOIDOSCOPY FLEXIBLE WITH BIOPSY; Surgeon: Tyshawn Santos MD; Location: Endo; Service: Gastroenterology THYROIDECTOMY N/A 07/15/2015 Procedure: TOTAL THYROIDECTOMY; Surgeon: Lopez Alonso MD; Location: [facility]; Service: US ECHO TRANSTHORACIC [...] Socioeconomic History Marital status: Occupational History Occupation: [employer] 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 DJMGLXFGVZJ-UZQTBKIHI-JBVANRIK (TRELEGY ELLIPTA) 200-62.5-25 MCG DSDV Inhale 1 [...] See above Cb Boudreaux documented in this [id number] Instructions* Patient Instructions* Andree Veras RN - 09/09/2024 2:32 PM EST Images from the original note were not included. It was our pleasure to see you in EP Clinic today. Please contact: JASON Wall at [phone] JASON Candelario at [phone] FERMIN Downs RMA with questions, concerns, or [...] or any other implanted or prosthetic medical and health services manager. You have an intrauterine device (IUD) in [...] our office before restarting the medication at [phone]. Please bring your morning medications with you. [...] out of your body. documented in this [id number] History of Present illness Narrative* Jaspreet Barnes [...] Plan Status: Initial assessment completed by JASON Chairezengagement manager, in the emergency department. Please refer to her note. Care Management will continue to follow. 1044- Patient is discharged home. Assessment and Background Information: documented in this [id number] Miscellaneous Notes* Plan of Care - Jaspreet [...] Enviroment Outcome: Partially Met documented in this [id number] Plan of care note* Plan of Care - Jaspreet Barnes RN - 09/03/2024 3:32 PM EDT Problem: Actual or potential alteration in health Goal: Absence of healthcare acquired conditions Outcome: Partially Met Goal: Knowledge of Interdisciplinary Plan of Care Outcome: Partially Met Goal: Knowledge of Enviroment Outcome: Partially Met [id number] Hospital course Narrative* Ramírez Cunningham MD - 09/03/2024 9:38 AM EDT Images from the original note were not included. [facility] DISCHARGE SUMMARY -- [facility] Radha Shafer Admitted: 09/02/2024 Discharge Date: 09/03/24 PCP Handoff Recommended Outpatient Testing Follow up with [facility] Results Pending At Discharge none Clinical Summary [...] patient brings a piece of paper from [facility] that says check cpk and creatine every admission - [place] [address] + but if normal creatine consider outpatient [...] Trelegy Ellipta 200-62.5-25 mcg Dsdv Generic drug: vtpvzvwnmkp-rincvvboo-ibedglzf Inhale 1 (one) Inhalation daily . Quantity: [...] on 09/03/24, 9:38 AM documented in this [id number] Progress note* Quick Note - Kayla Mujica RN - 09/03/2024 1:25 AM EDT Patient provides paper regarding POC for disease. Patient demanding IVF at this time. This RN attempts to explain reasoning for no IVF at this time; patient remains adamant. RN advises patient to speak with rounding physician regarding POC. Stable at this time; will monitor. [id number] Plan of care note* Plan of Care - Kayla Mujica RN - 09/02/2024 10:57 PM EDT Problem: Actual or potential alteration in health Goal: Absence of healthcare acquired conditions Outcome: Met Goal: Knowledge of Interdisciplinary Plan of Care Outcome: Met Goal: Knowledge of Enviroment Outcome: Met [id number] Progress note* Quick Note - Kayla Mujica RN - 09/02/2024 8:00 PM EDT Patient medications verified with patient. Patient takes dojolvi TID; patient supplied medication sent to pharmacy for verification. Per patient,takes zanaflex prn at bed time; pharmacy notified of patient schedule. [id number] Plan of care note* Plan of Care [...] by Cherie Dias RN Outcome: Partially Met [id number] Plan of care note* Plan of Care - Cherie Dias RN - 09/02/2024 6:30 PM EDT Problem: Actual or potential alteration in health Goal: Absence of healthcare acquired conditions Outcome: Partially Met Goal: Knowledge of Interdisciplinary Plan of Care Outcome: Partially Met Goal: Knowledge of Enviroment Outcome: Partially Met [id number] Consult note* Mihaela Carroll RN - 09/02/2024 [...] that her PCP is Dr. Tomas in [place] and her insurance is [facility] managed medicare and medicaid. Patient stated [...] a baby due in 9 days, offered [facility] services is needed and granddaughter [...] routine activities due to chronic pain:: Yes [id number] Emergency department Note* Tram Perez RN - 09/02/2024 3:51 PM EDT Report called to receiving RN. All questions answered [id number] Consult note* Mihaela Carroll RN - 09/02/2024 [...] that her PCP is Dr. Tomas in [place] and her insurance is [facility] managed medicare and medicaid. Patient stated [...] a baby due in 9 days, offered [facility] services is needed and granddaughter [...] to chronic pain:: Yes documented in this [id number] Emergency department Note* Tram Perez RN - [...] CHAND NOTIFIED. FAMILY CAN BE REACHED AT [phone]. * Anna Dutton PSA - 09/02/2024 1:36 PM EDT PT'S GRAND DAUGHTER MARYLU CALLED FOR AN UPDATE. SHE CAN BE CALLED AT [phone]. JASON CHAND NOTIFIED. * Tram Perez RN [...] and tripoding d/t SOB documented in this [id number] Emergency department Note* Tram Perez RN - 09/02/2024 2:34 PM EDT Pt family member Marylu called and updated. All questions answered. She states she will talk to additional family members and pass info along. [id number] Emergency department Note* Anna Dutton PSA - 09/02/2024 2:17 PM EDT PT'S DAUGHTER LUIS CALLED FOR AN UPDATE. JASON CHAND NOTIFIED. FAMILY CAN BE REACHED AT [phone]. [id number] Emergency department Note* Anna Dutton PSA - 09/02/2024 1:36 PM EDT PT'S GRAND DAUGHTER MARYLU CALLED FOR AN UPDATE. SHE CAN BE CALLED AT [phone]. JASON CHAND NOTIFIED. [id number] History and physical note* Nabila Lama MD - 09/02/2024 12:39 PM EDT [facility] Patient Name: Radha Shafer : 1960 MR #: [id number] Admit Date: 09/02/2024 Physicians: No, Physician (Family); No ref. provider found (Referring) Radha Shafer is a 64 y.o. female patient of No, Physician with history of COPD chronic hypoxemic respiratory failure on 4 L of oxygen at home also history of hypertension myopathy with enzyme deficiency, hypothyroidism, GERD, hypertension, obesity and obstructive sleep apnea on CPAP presented to [facility] on 09/02/2024 with worsening shortness of breath [...] obstructive sleep apnea on CPAP presented to [facility] on 09/02/2024 with worsening shortness of breath [...] Colitis sigmoid COPD (chronic obstructive pulmonary disease) ([facility]) 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HCC) Per pt. - Depression Diabetes (HCC) Diverticulosis Emphysema of lung (HCC) GERD (gastroesophageal reflux disease) Hepatic steatosis History of echocardiogram History of stress test Hypertension Hypothyroidism Kidney disease, chronic, stage I (GFR over 89 ml/min) stage 3 Lung nodule Neuromuscular disorder ([facility]) 2015 I have cpt2 difficency Obesity On home oxygen therapy 2L via NC, PRN with walking, activity Scoliosis 03/2022 Sleep apnea noncompliant with CPAP; uses home oxygen Sleep apnea, obstructive Past Surgical History Past Surgical History: Procedure Laterality Date ALTEMEIER PROCEDURE N/A 03/30/2022 Procedure: ALTEMEIER PROCEDURE; Surgeon: Jada Vargas MD; Location: [facility] Main OR; Service: Colorectal CARDIAC CATHETERIZATION N/A 09/26/2022 Procedure: Coronary Angiogram; Surgeon: Tor Long MD; Location: [facility]; Service: Cardiovascular CARDIOVASCULAR STRESS TEST CHOLECYSTECTOMY COLONOSCOPY with biopsies COLONOSCOPY N/A 02/17/2022 Procedure: COLONOSCOPY; Surgeon: Jada Vargas MD; Location: [facility] Endo; Service: Colorectal EGD N/A 08/15/2022 Procedure: ESOPHAGOGASTRODUODENOSCOPY WITH BIOPSY; Surgeon: Tyshawn Santos MD; Location: [facility]; Service: Gastroenterology GALLBLADDER HC LEFT HEART CATH N/A 09/26/2022 Procedure: Left Heart Cath; Surgeon: Tor Long MD; Location: [facility]; Service: Cardiovascular HYSTERECTOMY JOINT REPLACEMENT Left knee ORTHOPEDIC SURGERY r wrist surgery, left ankle, right rotator cuff ROTATOR CUFF REPAIR Right SIGMOIDOSCOPY FLEXIBLE N/A 06/23/2022 Procedure: SIGMOIDOSCOPY FLEXIBLE WITH BIOPSY; Surgeon: Tyshawn Santos MD; Location: Endo; Service: Gastroenterology THYROIDECTOMY N/A 07/15/2015 Procedure: TOTAL THYROIDECTOMY; Surgeon: Lopez Alonso MD; Location: [facility] NEUR[facility] OR; Service: US ECHO TRANSTHORACIC [...] normal coloration Psych: normal mood and affect [id number] History and physical note* Nabila Lama MD - 09/02/2024 12:39 PM EDT [facility] Patient Name: Radha Shafer : 1960 MR #: [id number] Admit Date: 09/02/2024 Physicians: No, Physician (Family); No ref. provider found (Referring) Radha Shafer is a 64 y.o. female patient of No, Physician with history of COPD chronic hypoxemic respiratory failure on 4 L of oxygen at home also history of hypertension myopathy with enzyme deficiency, hypothyroidism, GERD, hypertension, obesity and obstructive sleep apnea on CPAP presented to [facility] on 09/02/2024 with worsening shortness of breath [...] obstructive sleep apnea on CPAP presented to [facility] on 09/02/2024 with worsening shortness of breath [...] ALTEMEIER PROCEDURE; Surgeon: Jada Vargas MD; Location: [facility] Main OR; Service: Colorectal CARDIAC CATHETERIZATION N/A 09/26/2022 Procedure: Coronary Angiogram; Surgeon: Tor Long MD; Location: [facility]; Service: Cardiovascular CARDIOVASCULAR STRESS TEST CHOLECYSTECTOMY COLONOSCOPY with biopsies COLONOSCOPY N/A 02/17/2022 Procedure: COLONOSCOPY; Surgeon: Jada Vargas MD; Location: [facility] Endo; Service: Colorectal EGD N/A 08/15/2022 Procedure: ESOPHAGOGASTRODUODENOSCOPY WITH BIOPSY; Surgeon: Tyshawn Santos MD; Location: Endo; Service: Gastroenterology GALLBLADDER HC LEFT HEART CATH N/A 09/26/2022 Procedure: Left Heart Cath; Surgeon: Tor Long MD; Location: [facility]; Service: Cardiovascular HYSTERECTOMY JOINT REPLACEMENT Left knee ORTHOPEDIC SURGERY r wrist surgery, left ankle, right rotator cuff ROTATOR CUFF REPAIR Right SIGMOIDOSCOPY FLEXIBLE N/A 06/23/2022 Procedure: SIGMOIDOSCOPY FLEXIBLE WITH BIOPSY; Surgeon: Tyshawn Santos MD; Location: [facility]; Service: Gastroenterology THYROIDECTOMY N/A 07/15/2015 Procedure: TOTAL THYROIDECTOMY; Surgeon: Lopez Alonso MD; Location: [facility] OR; Service: US ECHO TRANSTHORACIC [...] normal mood and affect documented in this [id number] Emergency department Note* Tram Perez RN - 09/02/2024 12:00 PM EDT Hourly rounding assessment completed on the patient. [x] Patient updated on plan of care [x] All comfort needs addressed [x] Patient updated on duration of visit All questions answered, patient denies further needs. Call light within reach. [id number] Emergency department Triage note* Tram Perez RN - 09/02/2024 11:23 AM EDT Pt from orthopedic office. Pt c/o SOB. Pt wears 4lpm PRN at home, presented to ED on RA. Pt was 77%on RA. Pt with non productive cough. Placed on 6lpm NC, O2 sat improved to 99%. Pt unable to speak in full sentences and tripoding d/t SOB [id number] Telephone encounter Note* Telephone Encounter - Raya Dutton MA - 03/06/2024 12:08 PM EDT Received refill request from [facility] for Levocarnitine. Last OV: 02/13/23 Last Labs: 02/13/23 Next OV: 06/03/24 Set up request for ePrescribe. [facility]05-01-2024 Miscellaneous Notes* Telephone Encounter - Raya Dutton MA - 03/06/2024 12:08 PM EDT Received refill request from [facility] for Levocarnitine. Last OV: 02/13/23 Last Labs: 02/13/23 Next OV: 06/03/24 Set up request for ePrescribe. documented in this encounterUniversity [facility]als [facility]03-25-2024 Telephone encounter Note* Telephone Encounter - Cecille Johnson LPN - 01/29/2024 9:34 AM EDT Received refill request from [facility] for Dojolvi Last OV: 02/13/23 Last Labs: 02/13/23 Next OV: 02/12/24 Set up request for ePrescribe. [facility]03-25-2024 Miscellaneous Notes* Telephone Encounter - Cecille Johnson LPN - 01/29/2024 9:34 AM EDT Received refill request from [facility] for Dojolvi Last OV: 02/13/23 Last Labs: 02/13/23 Next OV: 02/12/24 Set up request for ePrescribe. documented in this encounterUniversity Hospitals [facility]12-12-2023 Telephone encounter Note* Telephone Encounter - Meliza Rust - 10/17/2023 8:08 AM EST Received fax from [facility] put in the metbolic box. [facility]12-12-2023 Miscellaneous Notes* Telephone Encounter - Meliza Rust - 10/17/2023 8:08 AM EST Received fax from [facility] put in the metbolic box. documented in this encounterUniversity Hospitals Cleveland [facility] Center12-11-2023 History of Present illness Narrative* Rivas Jules [...] PM EST [facility] [address] ([address]) [facility] [address] [facility] [id number] Radha Shafer is a 63 [...] improve. Rivas Jules MD documented in this [id number] Miscellaneous Notes* Telephone Encounter - Jdaa Glez - 02/27/2023 2:27 PM EDT Called to schedule a FU No answer Left message and recall to schedule from documented in this encounterNatG[facility]04-24-2023 Telephone encounter Note* Telephone Encounter - Jada Glez - 02/27/2023 2:27 PM EDT Called to schedule a FU No answer Left message and recall to schedule from [facility]04-20-2023 Telephone encounter Note* Telephone Encounter - Elisabeth Matamoros MS, RD/LD - 02/23/2023 9:05 AM EDT Called Radha regarding her diet. She said she no longer had any questions for the dietitian. Encouraged her to call if she needed meal ideas or help with picking food. Gave her RD direct number as well. [facility]04-20-2023 Miscellaneous Notes* Telephone Encounter - Elisabeth Matamoros MS, RD/LD - 02/23/2023 9:05 AM EDT Called Radha regarding her diet. She said she no longer had any questions for the dietitian. Encouraged her to call if she needed meal ideas or help with picking food. Gave her RD direct number as well. documented in this encounterNationSub[facility] Telephone encounter Note* Telephone Encounter - Rocio Nickerson LPN - 12/06/2022 3:25 PM EST Called and spoke with Kevin at [facility] ([phone]), informed them of my conversation with the patient. Kevin requested we contact them back when the patient restarts the medication. [facility]01-31-2023 Miscellaneous Notes* Telephone Encounter - Roico Nickerson LPN - 12/06/2022 3:25 PM EST Called and spoke with Kevin at [facility] ([phone]), informed them of my conversation with the [...] EST Received phone call from Selena at [facility]. Selena informed me that the patient had declined the refill request for Dojolivi because she was told by the provider to stop the medication due to diarrhea. Will contact the pharmacy with an update after speaking to the metabolic provider. Call back number [phone] documented in this encounterUniversity Hospitals Cleveland [facility] Center01-31-2023 Telephone encounter Note* Telephone Encounter [...] she restarts the medication, patient voiced understanding. [facility]01-31-2023 Telephone encounter Note* Telephone Encounter - Rocio Nickerson LPN - 12/06/2022 1:42 PM EST Received phone call from Selena at [facility]. Selena informed me that the patient had declined the refill request for Dojolivi because she was told by the provider to stop the medication due to diarrhea. Will contact the pharmacy with an update after speaking to the metabolic provider. Call back number [phone] [facility]01-30-2023 History of Present illness Narrative* Khadra Perdomo MA - 12/05/2022 10:17 AM EST Refill request for DOJOLVI. documented in this encounterUniversity Hospitals [facility]01-18-2023 Telephone encounter Note* Telephone Encounter - Jada Glez - 11/23/2022 4:04 PM EST Third attempt and sent patient mychart message to reschedule. No answer, and patient has not read message. Sending letter in the mail. [facility]01-18-2023 Miscellaneous Notes* Telephone Encounter - Jada Glez - 11/23/2022 4:04 PM EST Third attempt and sent patient mychart message to reschedule. No answer, and patient has not read message. Sending letter in the mail. documented in this encounterUniversity Hospitals [facility] Center10-25-2022 Telephone encounter Note* Telephone Encounter - Shakira Gerard MD - 08/30/2022 12:38 PM EDT Previously call from [facility] regarding patient not eating (when we [...] nothing too concerning heart cabrera. Expressed that [place] in females are notlike the typical Mis [...] understanding. Will await call back next week. [facility] Work Phone: 1(476) 997-828510-25-2022 Miscellaneous Notes* Telephone Encounter - Shakira Gerard MD - 08/30/2022 12:38 PM EDT Previously call from [facility] regarding patient not eating (when we [...] nothing too concerning heart cabrera. Expressed that [place] in females are notlike the typical Mis [...] call back next week. documented in this encounterThe University Of [facility]'s [id number] History of Present illness Narrative* Debra Rosalvayuniel Adamson, CHIEF OF ANESTHESIOLOGY - 07/19/2022 2:57 PM EDT Radha Benitez [...] ALTEMEIER PROCEDURE; Surgeon: Jada Vargas MD; Location: [facility] Main OR; Service: Colorectal CARDIOVASCULAR STRESS TEST CHOLECYSTECTOMY COLONOSCOPY with biopsies COLONOSCOPY N/A 02/17/2022 Procedure: COLONOSCOPY; Surgeon: Jada Vargas MD; Location: [facility] Endo; Service: Colorectal GALLBLADDER HYSTERECTOMY JOINT REPLACEMENT Left knee ORTHOPEDIC SURGERY r wrist surgery, left ankle, right rotator cuff ROTATOR CUFF REPAIR Right SIGMOIDOSCOPY FLEXIBLE N/A 06/23/2022 Procedure: SIGMOIDOSCOPY FLEXIBLE WITH BIOPSY; Surgeon: Tyshawn Santos MD; Location: Endo; Service: Gastroenterology THYROIDECTOMY N/A 07/15/2015 Procedure: TOTAL THYROIDECTOMY; Surgeon: Lopez Alonso MD; Location: [facility]; Service: US ECHO TRANSTHORACIC FOLLOWUP LIMITED WRIST SURGERY Right Social History: Social History Socioeconomic History Marital status: Occupational History 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 16 g 3 ixsvvipjmor-vmbdvloqd-cdocoitw (Trelegy Ellipta) 200-62.5-25 mcg DsDv Inhale 1 [...] scheduled for EGD with Dr. Santos at [facility] on 08/15/2022 at 12:00PM. Debra Adamson CNP documented in this [id number] History of Present illness Narrative* Estrada Garcia MD - 07/08/2022 11:45 AM EDT [facility] [address] [facility] [address] [facility] [id number] Name: Radha Shafer Age: 62 y.o. 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 [...] to episodic myopathy. She is treated at [facility]. Past Medical History: Diagnosis Date Anxiety [...] ALTEMEIER PROCEDURE; Surgeon: Jada Vargas MD; Location: [facility] Main OR; Service: Colorectal CARDIOVASCULAR STRESS TEST CHOLECYSTECTOMY COLONOSCOPY with biopsies COLONOSCOPY N/A 02/17/2022 Procedure: COLONOSCOPY; Surgeon: Jada Vargas MD; Location: [facility] Endo; Service: Colorectal GALLBLADDER HYSTERECTOMY JOINT REPLACEMENT Left knee ORTHOPEDIC SURGERY r wrist surgery, left ankle, right rotator cuff ROTATOR CUFF REPAIR Right SIGMOIDOSCOPY FLEXIBLE N/A 06/23/2022 Procedure: SIGMOIDOSCOPY FLEXIBLE WITH BIOPSY; Surgeon: Tyshawn Santos MD; Location: Endo; Service: Gastroenterology THYROIDECTOMY N/A 07/15/2015 Procedure: TOTAL THYROIDECTOMY; Surgeon: Lopez Alonso MD; Location: [facility]; Service: US ECHO TRANSTHORACIC [...] Socioeconomic History Marital status: Occupational History 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 cojfnnumryn-gvxjzxtll-sfoustfv (Trelegy Ellipta) 200-62.5-25 mcg DsDv Inhale 1 [...] weeks Estrada Garcia MD documented in this [id number] Hospital Discharge instructions * Discharge Instr - Other Orders* Angela Davila RN - 06/29/2022 11:01 AM EDT - The vacation sales advisor's office will be contacting you after you leave to schedule a follow up appointment. * Attachments The following attachments cannot be sent through Care Everywhere. * Diarrhea (Venezuelan) documented in this [id number] Hospital course Narrative* Leodan Geronimo MD - 06/29/2022 10:39 AM EDT Images from the original note were not included. [facility] [place] Radha Shafer Admitted: 06/21/2022 Discharge Date: 06/29/22 PCP Handoff Recommended Outpatient Testing Follow with GI for EGD Results Pending At Discharge None Clinical Summary Radha Shafer is a 62 y.o. female patient of Jonathan Rutherford CNP with history of chronic kidney disease stage III, hypertension, rectal prolapse s/p surgery at [place] on March 2022, anemia, thyroid cancer s/p [...] Trelegy Ellipta 200-62.5-25 mcg Dsdv Generic drug: fphnldbfjuj-msuqlruih-enjehfvf Inhale 1 (one) Inhalation daily . Quantity: [...] on 06/29/22, 10:39 AM documented in this [id number] History of Present illness Narrative* Leodan Geronimo MD - 06/28/2022 11:46 AM EDT [facility] PROGRESS NOTE Assessment and Plan Radha Shafer is a 62 y.o. female patient of Jonathan Rutherford CNP with history of chronic kidney disease stage III, hypertension, rectal prolapse s/p surgery at [place] on March 2022, anemia, thyroid cancer s/p [...] clinical information: rectal prolapse s/p surgery at [place] on March 2022 who presented to the [...] to follow as needed., while in-house. Office [phone] * Leodan Geronimo MD - 06/27/2022 11:43 AM EDT [facility] PROGRESS [facility] Assessment and Plan Radha Shafer is a 62 y.o. female patient of Jonathan Rutherford CNP with history of chronic kidney disease stage III, hypertension, rectal prolapse s/p surgery at [place] on March 2022, anemia, thyroid cancer s/p [...] Hale MD - 06/26/2022 1:40 PM EDT [facility] PROGRESS NOTE Assessment and Plan Radha Shafer is a 62 y.o. female patient of Jonathan Rutherford CNP with history of chronic kidney disease stage III, hypertension, rectal prolapse s/p surgery at [place] on March 2022, anemia, thyroid cancer s/p [...] Hale MD - 06/25/2022 1:52 PM EDT [facility] PROGRESS NOTE Assessment and Plan Radha Shafer is a 62 y.o. female patient of Jonathan Rutherford CNP with history of chronic kidney disease stage III, hypertension, rectal prolapse s/p surgery at [place] on March 2022, anemia, thyroid cancer s/p [...] Hale MD - 06/24/2022 5:30 PM EDT [facility] PROGRESS NOTE Assessment and Plan Radha Shafer is a 62 y.o. female patient of Jonathan Rutherford CNP with history of chronic kidney disease stage III, hypertension, rectal prolapse s/p surgery at [place] on March 2022, anemia, thyroid cancer s/p [...] NOTE Patient Name: Radha Shafer MR #: [id number] Assessment/Plan: 62 y.o. female with past medical [...] Loo MD - 06/23/2022 2:06 PM EDT [facility] PROGRESS NOTE Assessment and Plan Radha Shafer is a 62 y.o. female patient of Jonathan Rutherford CNP with history of COPD, chronic kidney disease stage III, hypertension, rectal prolapse s/p surgery at [place] on March 2022 who presented to the [...] Louis CNP - 06/22/2022 11:41 AM EDT [facility] PROGRESS NOTE Assessment and Plan Radha Shafer is a 62 y.o. female patient of Jonathan Rutherford CNP with history of COPD, chronic kidney disease stage III, hypertension, rectal prolapse s/p surgery at [place] on March 2022 who presented to the [...] III, hypertension, rectal prolapse s/p surgery at [place] on March 2022 who presented to the [...] Microbiology, Medications, and Transcriptions documented in this [id number] Note* Sign Off Note - Nessa Jay CNP - 06/28/2022 10:23 AM EDT Gastroenterology Inpatient Follow-up 06/28/2022 Nessa Jay CNP [facility] Patient: Radha Shafer Date of : 1960 [...] AM: Laboratory, Pathology, Radiology, Medications, and Transcriptions [place] Work Phone: 1(817) 234-282008-23-2022 Miscellaneous Notes* Sign Off Note - Nessa Jay CNP - 06/28/2022 10:23 AM EDT Gastroenterology Inpatient Follow-up 06/28/2022 Nessa Jay CNP [facility] Patient: Radha Shafer Date of : 1960 [...] Thank you, Peace Zaragoza RN, BSN Clinical Director Of Resource Development [phone] After business hours you may contact Za Lopes at [phone] (Weekdays until 10 PM and weekends 8 [...] Thank you, Peace Zaragoza RN, BSN Clinical Director Of Resource Development [phone] After business hours you may contact Za Lopes at [phone] (Weekdays until 10pm) * Brief Op Note [...] Thank you, Peace Zaragoza RN, BSN Clinical Director Of Resource Development [phone] After business hours you may contact Za Lopes at [phone] (Weekdays until 10 PM and weekends 8 [...] Thank you, Peace Zaragoza RN, BSN Clinical Director Of Resource Development [phone] After business hours you may contact Za Lopes at [phone] ( until 10pm) * Plan of Care [...] PM EDT POC initiated documented in this [id number] Note* Plan of Care - Lawanda Baker RN - 06/27/2022 5:33 PM EDT POC updated and reviewed. IVF started. POC continues. [id number] Note* Plan of Care - Angela Davila [...] plan and instructions Outcome: Partially Met T [id number] Note* Plan of Care - Angela Davila [...] plan and instructions Outcome: Partially Met T [id number] Note* CDI Query - Sheri Hale MD [...] Thank you, Peace Zaragoza RN, BSN Clinical Director Of Resource Development [phone] After business hours you may contact Za Lopes at [phone] (Weekdays until 10 PM and weekends 8 AM - 10 PM) [id number] Note* CDI Query - Sheri Hale MD [...] Thank you, Peace Zaragoza RN, BSN Clinical Director Of Resource Development [phone] After business hours you may contact Za Lopes at [phone] (Weekdays until 10pm) [id number] Nurse Note* Lois Simmons RN - 06/23/2022 12:56 PM EDT Report called to primary nurse Josue, patient to return to room 2123. [id number] Nurse Note* Lois Simmons RN - 06/23/2022 12:56 PM EDT Report called to primary nurse Josue, patient to return to room 2123. * Susy Shelton RN - 06/23/2022 11:47 AM EDT Pt received Tap water enema by primary nurse. States still not clear. Pt is not receiving any anesthesia today for flex sig documented in this [id number] Note* Brief Op Note - Tyshawn Santos MD - 06/23/2022 12:49 PM EDT Sigmoidoscopy revealed mild proctitis sigmoid colon was normal biopsies were taken from rectum and sigmoid colon. Proctitis could be secondary to recent surgery for rectal prolapse. [facility] Work Phone: [phone]) 432-740008-18-2022 Nurse Note* Susy Shelton RN - 06/23/2022 11:47 AM EDT Pt received Tap water enema by primary nurse. States still not clear. Pt is not receiving any anesthesia today for flex sig [id number] Consult note* Debra Adamson CNP - 06/23/2022 9:40 AM EDTAssociated Order(s): IP CONSULT TO GASTROENTEROLOGY Gastroenterology Inpatient Consult 06/23/2022 Debra Adamson CNP [facility] Patient: Radha Shafer Date of : 1960 [...] ALTEMEIER PROCEDURE; Surgeon: Jada Vargas MD; Location: [facility] Main OR; Service: Colorectal CARDIOVASCULAR STRESS TEST CHOLECYSTECTOMY COLONOSCOPY with biopsies COLONOSCOPY N/A 02/17/2022 Procedure: COLONOSCOPY; Surgeon: Jada Vargas MD; Location: [facility] Endo; Service: Colorectal GALLBLADDER HYSTERECTOMY JOINT REPLACEMENT Left knee ORTHOPEDIC SURGERY r wrist surgery, left ankle, right rotator cuff ROTATOR CUFF REPAIR Right THYROIDECTOMY N/A 07/15/2015 Procedure: TOTAL THYROIDECTOMY; Surgeon: Lopez Alonso MD; Location: [facility]UR[facility] OR; Service: US ECHO TRANSTHORACIC [...] (two) sprays into each nostril daily . wtjksrpeabc-iqygbhsbu-rkxfaizx (Trelegy Ellipta) 200-62.5-25 mcg DsDv, Inhale 1 [...] interviewed and examined the patient. I reviewed [facility] nurse practitioner consultation report and [...] take biopsies to rule out microcytic colitis. [id number] Consult note* Debra Adamson CNP - 06/23/2022 9:40 AM EDTAssociated Order(s): IP CONSULT TO GASTROENTEROLOGY Gastroenterology Inpatient Consult 06/23/2022 Debra Adamson CNP [facility] Patient: Radha Shafer Date of : 1960 [...] ALTEMEIER PROCEDURE; Surgeon: Jada Vargas MD; Location: [facility] Main OR; Service: Colorectal CARDIOVASCULAR STRESS TEST CHOLECYSTECTOMY COLONOSCOPY with biopsies COLONOSCOPY N/A 02/17/2022 Procedure: COLONOSCOPY; Surgeon: Jada Vargas MD; Location: [facility] Endo; Service: Colorectal GALLBLADDER HYSTERECTOMY JOINT REPLACEMENT Left knee ORTHOPEDIC SURGERY r wrist surgery, left ankle, right rotator cuff ROTATOR CUFF REPAIR Right THYROIDECTOMY N/A 07/15/2015 Procedure: TOTAL THYROIDECTOMY; Surgeon: Lopez Alonso MD; Location: [facility] OR; Service: US ECHO TRANSTHORACIC [...] (two) sprays into each nostril daily . xfmutbexedl-nugbocqze-jgsnlzut (Trelegy Ellipta) 200-62.5-25 mcg DsDv, Inhale 1 [...] interviewed and examined the patient. I reviewed [facility] nurse practitioner consultation report and [...] rule out microcytic colitis. documented in this [id number] Note* CDI Query - Ryan Loo MD [...] Thank you, Peace Zaragoza RN, BSN Clinical Director Of Resource Development [phone] After business hours you may contact Za Lopes at [phone] (Weekdays until 10 PM and weekends 8 AM - 10 PM) [id number] Note* CDI Query - Ryan Loo MD [...] Thank you, Peace Zaragoza RN, BSN Clinical Director Of Resource Development [phone] After business hours you may contact Za Lopes at [phone] (Weekdays until 10pm) [id number] Note* Plan of Care - Annabelle Green [...] discharge plan and instructions Outcome: Partially Met [id number] Note* Plan of Care - Olga Russell MD - 06/21/2022 8:22 PM EDT Stool PCR still pending. Will not leave the patient uncovered overnight without antibiotics, will start the patient empirically on ciprofloxacin, ceftriaxone (allergy to penicillins) and p.o. vancomycin, de-escalate antibiotics as indicated when stool PCR finally resulted [id number] Note* Plan of Care - Annabelle Green [...] discharge plan and instructions Outcome: Partially Met [id number] Note* Plan of Care - Cheryl Martini RN - 06/21/2022 5:05 PM EDT POC initiated [id number] Emergency department Note* Duke Nath RN - 06/21/2022 4:47 PM EDT Pt had a small black soft BM. Pt cleaned and depends changed [id number] Emergency department Note* Duke Nath RN - 06/21/2022 4:47 PM EDT Pt had a small black soft BM. Pt cleaned and depends changed * Duke Nath RN - 06/21/2022 4:36 PM EDT Report called to the floor * Jaiden Bagley MD - 06/21/2022 11:10 AM EDTAssociated Order(s): Critical Care Images from the original note were not included. [facility] EMERGENCY DEPARTMENT PCP - Jonathan Rutherford CNP [...] follow-up with a local GI services in [place]. Patient did have a couple of episodes [...] 2. Hepatic steatosis. 3. Extensive aortic calcification. [facility] Workstation ID: [id number] XR Chest 1 View Preliminary Result No evident acute process in the chest. [employer] Workstation ID: [id number] Medications Ordered/Given During [...] ALTEMEIER PROCEDURE; Surgeon: Jada Vargas MD; Location: [facility] Main OR; Service: Colorectal CARDIOVASCULAR STRESS TEST CHOLECYSTECTOMY COLONOSCOPY with biopsies COLONOSCOPY N/A 02/17/2022 Procedure: COLONOSCOPY; Surgeon: Jada Vargas MD; Location: [facility] Endo; Service: Colorectal GALLBLADDER HYSTERECTOMY JOINT REPLACEMENT Left knee ORTHOPEDIC SURGERY r wrist surgery, left ankle, right rotator cuff ROTATOR CUFF REPAIR Right THYROIDECTOMY N/A 07/15/2015 Procedure: TOTAL THYROIDECTOMY; Surgeon: Lopez Alonso MD; Location: [facility] OR; Service: US ECHO TRANSTHORACIC [...] Socioeconomic History Marital status: Occupational History Occupation: [employer] 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 EVIHQRBVILI-BLJECDOPS-VBOCYBQM (TRELEGY ELLIPTA) 200-62.5-25 MCG DSDV Inhale 1 [...] arrival: Ambulance Comments: [place] documented in this [id number] Emergency department Note* Duke Nath RN - 06/21/2022 4:36 PM EDT Report called to the floor [id number] History and physical note* Olga Russell MD - 06/21/2022 2:37 PM EDT [facility] PHYSICAL Patient Name: Radha Shafer : 1960 MR #: [id number] Admit Date: 06/21/2022 Physicians: Jonathan Rutherford CNP (Family); No ref. provider found (Referring) Radha Shafer is a 62 y.o. female patient of Jonathan Rutherford CNP with history of COPD, chronic kidney disease stage III, hypertension, rectal prolapse s/p surgery at [place] on March 2022 who presented to the [...] III, hypertension, rectal prolapse s/p surgery at [place] on March 2022 who presented to the [...] ALTEMEIER PROCEDURE; Surgeon: Jada Vargas MD; Location: [facility] Main OR; Service: Colorectal CARDIOVASCULAR STRESS TEST CHOLECYSTECTOMY COLONOSCOPY with biopsies COLONOSCOPY N/A 02/17/2022 Procedure: COLONOSCOPY; Surgeon: Jada Vargas MD; Location: [facility] Endo; Service: Colorectal GALLBLADDER HYSTERECTOMY JOINT REPLACEMENT Left knee ORTHOPEDIC SURGERY r wrist surgery, left ankle, right rotator cuff ROTATOR CUFF REPAIR Right THYROIDECTOMY N/A 07/15/2015 Procedure: TOTAL THYROIDECTOMY; Surgeon: Lopez Alonso MD; Location: [facility] OR; Service: US ECHO TRANSTHORACIC [...] 06/21/22 2:49 PM Medications 06/21/22 2:49 PM [id number] History and physical note* Olga Russell MD - 06/21/2022 2:37 PM EDT [facility]YSICAL Patient Name: Radha Shafer : 1960 [id number] Admit Date: 06/21/2022 Physicians: Jonathan Rutherford CNP (Family); No ref. provider found (Referring) Radha Shafer is a 62 y.o. female patient of Jonathan Rutherford CNP with history of COPD, chronic kidney disease stage III, hypertension, rectal prolapse s/p surgery at [place] on March 2022 who presented to the [...] III, hypertension, rectal prolapse s/p surgery at [place] on March 2022 who presented to the [...] ALTEMEIER PROCEDURE; Surgeon: Jada Vargas MD; Location: [facility] Main OR; Service: Colorectal CARDIOVASCULAR STRESS TEST CHOLECYSTECTOMY COLONOSCOPY with biopsies COLONOSCOPY N/A 02/17/2022 Procedure: COLONOSCOPY; Surgeon: Jada Vargas MD; Location: [facility] Endo; Service: Colorectal GALLBLADDER HYSTERECTOMY JOINT REPLACEMENT Left knee ORTHOPEDIC SURGERY r wrist surgery, left ankle, right rotator cuff ROTATOR CUFF REPAIR Right THYROIDECTOMY N/A 07/15/2015 Procedure: TOTAL THYROIDECTOMY; Surgeon: Lopez Alonso MD; Location: [facility] OR; Service: US ECHO TRANSTHORACIC [...] Medications 06/21/22 2:49 PM documented in this [id number] Physician Emergency department Note* Jaiden Bagley MD - 06/21/2022 11:10 AM EDTAssociated Order(s): Critical Care Images from the original note were not included. [facility] EMERGENCY DEPARTMENT PCP - Jonathan Rutherford CNP [...] follow-up with a local GI services in [place]. Patient did have a couple of episodes [...] 2. Hepatic steatosis. 3. Extensive aortic calcification. [employer] Workstation ID: [id number] XR Chest 1 [...] ALTEMEIER PROCEDURE; Surgeon: Jada Vargas MD; Location: [facility] Main OR; Service: Colorectal CARDIOVASCULAR STRESS TEST CHOLECYSTECTOMY COLONOSCOPY with biopsies COLONOSCOPY N/A 02/17/2022 Procedure: COLONOSCOPY; Surgeon: Jada Vargas MD; Location: [facility] Endo; Service: Colorectal GALLBLADDER HYSTERECTOMY JOINT REPLACEMENT Left knee ORTHOPEDIC SURGERY r wrist surgery, left ankle, right rotator cuff ROTATOR CUFF REPAIR Right THYROIDECTOMY N/A 07/15/2015 Procedure: TOTAL THYROIDECTOMY; Surgeon: Lopez Alonso MD; Location: [facility] OR; Service: US ECHO TRANSTHORACIC [...] Socioeconomic History Marital status: Occupational History 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 DLURQUSRNBW-RMXDOGFJJ-QHUJSXJD (TRELEGY ELLIPTA) 200-62.5-25 MCG DSDV Inhale 1 [...] medications on file Jaiden Bagley MD 06/21/22 1422 [facility] Work Phone: [phone]) 548-910708-16-2022 Emergency department Triage note* Leandro Montano II, RN - 06/21/2022 10:53 AM EDT Pt to ED with c/c of blood in stool and diarrhea. PT feels weak and nauseous. PT noticed blood in stool last night. PT reports having appointment with PCP tomorrow. [id number] Emergency department Note* Christal Jon RN - 06/21/2022 10:53 AM EDT Bed: 23 Expected date: 06/21/22 Expected time: 10:40 AM Means of arrival: Ambulance Comments: [place] [id number] Evaluation note* Subjective & Objective - Serina [...] Psych: calm, cooperative, follows commands, normal affect [id number] History of Present illness Narrative* Serina Meyers [...] Hospital Medications: acetaminophen 1,300 mg Oral Q8H [facility] amLODIPine 10 mg Oral Daily aspirin 81 mg Oral Daily budesonide-formoteroL 2 puff Inhalation BID buPROPion 75 mg Oral Daily cholecalciferol (vitamin D3) 1,000 Units Oral Daily DULoxetine 60 mg Oral Daily gabapentin 100 mg Oral TID heparin (porcine) 5,000 Units Subcutaneous Q8H [facility] lispro insulin 0-15 Units Subcutaneous at bedtime insulin lispro 0-30 Units Subcutaneous TID AC levothyroxine 112 mcg Oral Daily lisinopriL 40 mg Oral Daily pantoprazole 40 mg Oral Daily sodium chloride (PF) 5 mL Intravenous Q8H [facility] tamsulosin 0.4 mg Oral After evening meal [...] recorded. Serina Meyers MD, PGY6 Colorectal Fellow [phone] 04/04/2022 Associated attestation - Jada Vargas MD - 04/04/2022 8:44 AM EDT The pateint was seen and examined by me. Full note per resident. I personally reviewed the following: Laboratory 04/04/22 8:44 AM I agree with the following plan: Ok for dc. Fu in 2-3 weeks. Jada Vargas MD * Kings Sanchez MD - 04/03/2022 2:41 PM EDT [facility] [place] -progress note: Patient Name: Radha Shafer MR #: [id number] ASSESSMENT / PLAN: Radha Shafer is a [...] Assessmen Kings Sanchez MD [facility] Office: [phone] * Serina Meyers MD - 04/03/2022 8:03 [...] recorded. Serina Meyers MD, PGY6 Colorectal Fellow [phone] 04/03/2022 Associated attestation - Jada Vargas MD - 04/03/2022 8:55 AM EDT The pateint was seen and examined by me. Full note per resident. I personally reviewed the following: Laboratory 04/03/22 8:54 AM I agree with the following plan: Voiding trial before dc tomorrow Low fiber diet Jada Vargas MD * Grant Archibald DO - 04/03/2022 7:50 AM EDT [facility] PROGRESS NOTE Assessment and Plan Radha Shafer is a 61 y.o. female patient of Jonathan Rutherford CNP with history of CPT2 deficiency, COPD, CKD, type 2 diabetes, hypothyroidism, HTN, FELISA presented on 03/30/2022 with rectal prolapse. [facility] consulted by Jada Vargas,* for management of [...] perspective, continue home medications at prescribed doses. [facility] will sign off, please call with questions. [...] recorded. Serina Meyers MD, PGY6 Colorectal Fellow [phone] 04/02/2022 Associated attestation - Jada Vargas MD - 04/02/2022 9:30 AM EDT The pateint was seen and examined by me. Full note per resident. I personally reviewed the following: Laboratory 04/02/22 9:30 AM I agree with the following plan: Consult urology D/w [facility] any unresolved medical issues before dc Jada Vargas MD * Grant Archibald, - 04/02/2022 8:37 AM EDT [facility] PROGRESS NOTE Assessment and Plan Radha Shafer is a 61 y.o. female patient of Jonathan Rutherford CNP with history of CPT2 deficiency, COPD, CKD, type 2 diabetes, hypothyroidism, HTN, FELISA presented on 03/30/2022 with rectal prolapse. [facility] consulted by Jada Vargas,* for management of [...] Archibald DO - 04/01/2022 10:18 AM EDT [facility] PROGRESS NOTE Assessment and Plan Radha Shafer is a 61 y.o. female patient of Jonathan Rutherford CNP with history of CPT2 deficiency, COPD, CKD, type 2 diabetes, hypothyroidism, HTN, FELISA presented on 03/30/2022 with rectal prolapse. [facility] consulted by Jada Vargas,* for management of [...] recorded. Serina Meyers MD, PGY6 Colorectal Fellow [phone] 04/01/2022 Associated attestation - Emmett Abdullahi DO [...] -admit to SDU post op -home O2 -MEDICAL INFORMATION SPECIALIST for now, discuss DC later today [...] sodium chloride (PF) 5 mL Intravenous Q8H [facility] tiotropium bromide 2 puff Inhalation Daily Labs [...] recorded. Serina Meyers MD, PGY6 Colorectal Fellow [phone] 03/31/2022 Associated attestation - Jada Vargas MD - 03/31/2022 9:50 AM EDT The pateint was seen and examined by me. Full note per resident. I personally reviewed the following: Laboratory 03/31/22 9:44 AM I agree with the following plan: Clear liquid diet. Consult [facility] for medical management. Await bowel function. Jada Vargas MD documented in this [id number] Miscellaneous Notes* Subjective & Objective - Serina [...] - 03/30/2022 3:13 PM EDT RADHA SHAFER [facility] [id number] 1960 DATE 03/30/2022 OPERATIVE REPORT SURGEON JADA VARGAS MD J2EE ARCHITECT SERINA MEYERS MD, RESIDENT PREOPERATIVE DIAGNOSIS Full-thickness [...] This was done circumferentially. We used a Goodrich retractor for retraction and this was released [...] case. JADA VARGAS MD D 03/30/2022 14:46 [id number] T 03/30/2022 15:08 JMAvni/CECI * Brief Op Note - Serina Meyers MD - 03/30/2022 12:23 PM EDT Brief Post Operative Note Patient Name: Radha Shafer : 1960 (61 y.o.) Date of Service: 03/30/2022 CSN: [id number] Procedure(s): ALTEMEIER PROCEDURE Pre-Operative Diagnoses: * Rectal prolapse [K62.3] Post-Operative Diagnoses: * Rectal prolapse [K62.3] Surgeon(s) and Role: * Jada Vargas MD - [facility] pgy6 Anesthesiologist: Alexandro Rajput MD 3D ARTIST: Gen Hartmann CRNA Braille Proofreader: Janice Vergara RN Braille Proofreader Relief: Rosina Licea RN Scrub Person Relief: [...] MD 03/30/2022 2:50 PM documented in this [id number] Consult note* Kings Sanchez MD - 04/02/2022 [...] questions or to discuss. Kings Sanchez MD [facility] Office: REASON FOR CONSULT: Acute [...] ALTEMEIER PROCEDURE; Surgeon: Jada Vargas MD; Location: [facility] Main OR; Service: Colorectal CARDIOVASCULAR STRESS TEST CHOLECYSTECTOMY COLONOSCOPY with biopsies COLONOSCOPY N/A 02/17/2022 Procedure: COLONOSCOPY; Surgeon: Jada Vargas MD; Location: [facility] Endo; Service: Colorectal GALLBLADDER HYSTERECTOMY JOINT REPLACEMENT Left knee ORTHOPEDIC SURGERY r wrist surgery, left ankle, right rotator cuff ROTATOR CUFF REPAIR Right THYROIDECTOMY N/A 07/15/2015 Procedure: TOTAL THYROIDECTOMY; Surgeon: Lopez Alonso MD; Location: [facility] OR; Service: US ECHO TRANSTHORACIC FOLLOWUP LIMITED WRIST SURGERY Right Social History Socioeconomic History Marital status: Occupational History 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 [facility] [place] - CONSULT NOTE: Patient Name: Radha Shafer [...] questions or to discuss. Kings Sanchez MD [facility] Office: REASON FOR CONSULT: Acute [...] ALTEMEIER PROCEDURE; Surgeon: Jada Vargas MD; Location: [facility] Main OR; Service: Colorectal CARDIOVASCULAR STRESS TEST CHOLECYSTECTOMY COLONOSCOPY with biopsies COLONOSCOPY N/A 02/17/2022 Procedure: COLONOSCOPY; Surgeon: Jada Vargas MD; Location: [facility] Endo; Service: Colorectal GALLBLADDER HYSTERECTOMY JOINT REPLACEMENT Left knee ORTHOPEDIC SURGERY r wrist surgery, left ankle, right rotator cuff ROTATOR CUFF REPAIR Right THYROIDECTOMY N/A 07/15/2015 Procedure: TOTAL THYROIDECTOMY; Surgeon: Lopez Alonso MD; Location: [facility]; Service: US ECHO TRANSTHORACIC FOLLOWUP LIMITED WRIST SURGERY Right Social History Socioeconomic History Marital status: Occupational History 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 provider found (Referring) Radha Shafer is a 61 y.o. female patient of Jonathan Rutherford CNP with history of CPT2 deficiency, COPD, CKD, type 2 diabetes, hypothyroidism, HTN, FELISA presented on 03/30/2022 with rectal prolapse. [facility] consulted by Jada Vargas,* for management of [...] Procedure: COLONOSCOPY; Surgeon: Jada Vargas MD; Location: [facility] Endo; Service: Colorectal GALLBLADDER HYSTERECTOMY JOINT REPLACEMENT Left knee ORTHOPEDIC SURGERY r wrist surgery, left ankle, right rotator cuff ROTATOR CUFF REPAIR Right THYROIDECTOMY N/A 07/15/2015 Procedure: TOTAL THYROIDECTOMY; Surgeon: Lopez Alonso MD; Location: [facility]; Service: US ECHO TRANSTHORACIC [...] Transcriptions 03/31/22 12:08 PM documented in this [id number] Note* Quick Note - Caitlyn Mishra PA-C - 03/31/2022 6:01 PM EDT Notified by RN of patient unable to void after diaz removal, bladder scan with >500 mL. Order placed for PRN bladder scans with POUR protocol. Continue to monitor. Caitlyn Mishra PA-C Hospital Medicine Service [facility] Work Phone: [phone] Evaluation + Plan note* Assessment & Plan [...] -PRNs for BP -DC flomax -DC today [id number] Consult note* Grant Archibald DO - 03/31/2022 7:59 AM EDTAssociated Order(s): IP CONSULT TO HOSPITALIST [facility] CONSULTATION NOTE Patient Name: Radha Shafer : 1960 MR #: [id number] Admit Date: 03/30/2022 Physicians: Jonathan Rutherford CNP (Family); No ref. provider found (Referring) Radha Shafer is a 61 y.o. female patient of Jonathan Rutherford CNP with history of CPT2 deficiency, COPD, CKD, type 2 diabetes, hypothyroidism, HTN, FELISA presented on 03/30/2022 with rectal prolapse. [facility] consulted by Jada Vargas,* for management of [...] Procedure: COLONOSCOPY; Surgeon: Jada Vargas MD; Location: [facility]; Service: Colorectal GALLBLADDER HYSTERECTOMY JOINT REPLACEMENT Left knee ORTHOPEDIC SURGERY r wrist surgery, left ankle, right rotator cuff ROTATOR CUFF REPAIR Right THYROIDECTOMY N/A 07/15/2015 Procedure: TOTAL THYROIDECTOMY; Surgeon: Lopez Alonso MD; Location: [facility]; Service: US ECHO TRANSTHORACIC [...] 03/31/22 12:08 PM Transcriptions 03/31/22 12:08 PM [id number] Note* Quick Note - Delonte Roa RN - 03/30/2022 10:[address] Meyers of colorectal to notify her of patient's elevated BP and patient complaint ofchest pain. Patient sates that chest pain has been going on past few days. This RN obtained an EKG which showed NSR. Physician ordered labetalol and troponin. [id number] Note* Op Note - Jada Vargas MD - 03/30/2022 3:13 PM EDT [facility] RADHA [facility] [id number] 1960 DATE 03/30/2022 OPERATIVE REPORT SURGEON JADA VARGAS MD J2EE ARCHITECT SERINA MEYERS MD, RESIDENT PREOPERATIVE DIAGNOSIS Full-thickness [...] This was done circumferentially. We used a [employer] retractor for retraction and this was released [...] case. JADA VARGAS MD D 03/30/2022 14:46 [id number] T 03/30/2022 15:08 JMAvni/SHILOHL [id number] Note* Brief Op Note - Serina Meyers MD - 03/30/2022 12:23 PM EDT Brief Post Operative Note Patient Name: Radha Shafer : 1960 (61 y.o.) Date of Service: 03/30/2022 CSN: [id number] Procedure(s): ALTEMEIER PROCEDURE Pre-Operative Diagnoses: * Rectal prolapse [K62.3] Post-Operative Diagnoses: * Rectal prolapse [K62.3] Surgeon(s) and Role: * Jada Vargas MD - Primary Luigi [id number] Anesthesiologist: Alexandro Rajput MD 3D ARTIST: Gen Hartmann CRNA Braille Proofreader: Janice Vergara RN Braille Proofreader Relief: Rosina Licea RN Scrub Person Relief: [...] * Serina Meyers MD 03/30/2022 2:50 PM [id number] Hospital course Narrative* Serina Meyers MD - 03/30/2022 12:23 PM EDT Images from the original note were not included. DISCHARGE SUMMARY Patient: Radha Shafer Date of : 1960 Site: [facility] Family Provider: Jonathan Rutherford CNP [...] Trelegy Ellipta 200-62.5-25 mcg Dsdv Generic drug: gfkrvmyzlob-cbgfffkbk-qjagduvj What changed: Another medication with the same [...] Physician(s) Family Provider: Jonathan Rutherford CNP, Address: [address] [place] [address] Follow Up: No follow-up provider specified. Additional [...] Wright in 2-3 weeks. documented in this [id number] Attending History and physical note* Jada Vargas MD - 03/30/2022 11:13 AM EDT INTERVAL HISTORY AND PHYSICAL Patient Name: Radha Shafer Admit Date: [id number] MR #: [id number] : 1960 The H&P has been reviewed and the patient has been examined. I concur with the findings of the H&P. There are no significant changes. It is appropriate to proceed with the planned procedure. Jada Vargas MD 03/30/2022 11:13 AM Source Note - Jada Vargas MD - 03/25/2022 1:52 PM EDT [id number] History and physical note* Jada Vargas MD - 03/30/2022 11:13 AM EDT INTERVAL HISTORY AND PHYSICAL Patient Name: Radha Shafer Admit Date: 5241208 MR #: [id number] : 1960 The H&P has been reviewed and the patient has been examined. I concur with the findings of the H&P. There are no significant changes. It is appropriate to proceed with the planned procedure. Jada Vargas MD 03/30/2022 11:13 AM Source Note - Jada Vargas MD - 03/25/2022 1:52 PM EDT documented in this [id number] Nurse Surgical operation note* Stacy Alexander RN - 03/29/2022 11:24 AM EDT PT DENIES IMPLANTS [facility] Surgical Department Patient Instructions for [facility]: Prior to surgery: Please bathe [...] if desired. When you arrive at the [facility] on the day of your surgery, please note that food service helper parking is free. Pull up to the [...] to view our online educational program in Pythian? It is very helpful to watch this as it can help you understand your surgery preparation process here at [facility]. It will provide you with [...] when being transported by a Medical Taxi [id number] Nurse Note* Stayc Alexander RN - 03/29/2022 11:24 AM EDT PT DENIES IMPLANTS [facility] Surgical Department Patient Instructions for [facility]: Prior to surgery: Please bathe [...] if desired. When you arrive at the [facility] on the day of your surgery, please note that food service helper parking is free. Pull up to the [...] to view our online educational program in Pythian? It is very helpful to watch this as it can help you understand your surgery preparation process here at [facility]. It will provide you with [...] Jonathan Rutherford CNP to be faxed to [phone]. * Elo Venegas RN - 03/28/2022 7:58 [...] cardiac clearance and labs be faxed to [phone] when completed. * Elo Venegas RN - 03/24/2022 1:45 PM EDT Secure chat message to Darlin at Dr. Vargas's office requesting orders and consent. documented in this [id number] Nurse Surgical operation note* Elo Venegas RN - 03/29/2022 8:[address] Carter who is third call today to discuss patient's chart and cardiac results. Dr. Carter reviewed patient's chart and agreed with cardiology and stated it is ok to proceed with surgery. [id number] Nurse Surgical operation note* Elo Venegas RN - 03/29/2022 8:10 AM EDT Called patient's PCP office and requested updated not from Jonathan Rutherford CNP to be faxed to [phone]. [id number] History of Present illness Narrative* Jyoti Reeves - 03/28/2022 4:15 PM EDT Pt notified cardiac clearance in chart. documented in this [id number] Nurse Surgical operation note* Elo Venegas RN - 03/28/2022 7:58 AM EDT Secure chat message to Sindhu at Dr. Vargas's office requesting orders and consent. [id number] Nurse Surgical operation note* Elo Venegas RN - 03/25/2022 12:32 PM EDT Secure chat message to Sindhu at Dr. Vargas's office inquiring about how Dr. Vargas would like to proceed since at this current time patient is not cleared for surgery from PCP or from cardiology. Also requested orders and consent to be faxed over. [id number] Nurse Surgical operation note* Elo Venegas RN - 03/24/2022 1:50 PM EDT Called patient's PCP office and requested PAT paperwork, cardiac clearance and labs be faxed to [phone] when completed. [id number] Nurse Surgical operation note* Elo Venegas RN - 03/24/2022 1:45 PM EDT Secure chat message to Darlin at Dr. Vargas's office requesting orders and consent. [id number] History of Present illness Narrative* Jyoti Reeves - 03/21/2022 2:39 PM EDT Pt needs stress test and cardiology consult before surgery. Jason Grullon at Jonathan Rutherford CNP office. She will put referrals in today with note to expedite due to surgery date 03/30. * Jyoti Reeves - 03/21/2022 1:52 PM EDT Faxed ekg to Jonathan Rutherford CNP. documented in this [id number] History of Present illness Narrative* Jyoti Reeves - 03/21/2022 1:52 PM EDT Faxed ekg to Jonathan Rutherford CNP. documented in this [id number] History of Present illness Narrative* Jada Vargas [...] urinating All questions answered. documented in this [id number] History of Present illness Narrative* America Stone MA - 01/07/2022 9:56 AM EST Pt has colonoscopy scheduled with [facility] at [facility] 02/17 @11:30am H/o polyps documented in this [id number] Note* Addendum Note - Bety Hanson LPN - 12/30/2021 12:01 PM ESTAddended by: BETY HANSON on: 12/30/2021 12:01 PM Modules accepted: Orders [id number] Note* Addendum Note - Bety Hanson LPN - 12/30/2021 12:01 PM ESTAddended by: BETY HANSON on: 12/30/2021 12:01 PM Modules accepted: Orders [id number] Note* Addendum Note - Bety Hanson LPN - 12/30/2021 12:01 PM ESTAddended by: BETY HANSON on: 12/30/2021 12:01 PM Modules accepted: Orders [id number] Miscellaneous Notes* Addendum Note - Bety Hanson LPN - 12/30/2021 12:01 PM ESTAddended by: BETY HANSON on: 12/30/2021 12:01 PM Modules accepted: Orders documented in this [id number] History of Present illness Narrative* Estrada Garcia MD - 12/30/2021 11:00 AM EST [facility] [address] [facility] [address] [place] [address] Name: Radha Shafer Age: 61 y.o. 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 [...] to episodic myopathy. She is treated at [facility]. 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 - ipratropium-albuteroL (DUO-NEB) 0.5-2.5 mg/3 ml nebulizer; Take 3 mL by nebulization 3 (three) times a day as needed for wheezing or shortness of breath . - Home Oxygen Concentrator with Portability Nasal cannula; 2 LPM; Continuous and/or During Exertion; [facility] Ms. 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 Mouth/Throat: Lips: Plain. No lesions. Mouth: No lacerations or oral [...] Chepe Yin CNP 08/04/21 documented in this [id number] NoteTherapy Diagnosis Assessed Cervical radiculopathy, acute (723.4) [...] secs on/20 off with lbs as tolerated. 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 [id number] Emergency department Note * Georgie Vázquez MD - 04/14/2021 3:56 PM EDT [facility] ED Attending Note: NAME: Radha Shafer 60 y.o. CSN: [id number] PCP: Jonathan Rutherford CNP History: Chief Complaint: [...] managed for this by Dr. Salinas at [facility]. 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 MYOGLOBIN, URINE No orders to display Procedures: Procedures ED Course / Medical Decision Making: Work-up of the patient has an elevated CPK of 1900 and elevated creatinine of 1.7, up from her previous creatinine 3 months ago of 1.4. Case is discussed with Dr. Gonzlaez, frame runner on-call for thepatient's own physician Dr. Salinas. [...] for repeat CPK and chemistry at the [facility] lab system here. The patient understands to get a blood test obtained and to call Dr. Salinas's office to set up a follow-up appointment. She also agrees to call their office if she gets worse, at their suggestion, or return to the emergency department. . Clinical Impression: 1. Inborn error of metabolism Disposition: Patient is being discharged to home Georgie Vázquez MD [facility] Emergency Department (Please note that portions [...] DR SALINAS NEEDS TO BE CONTACTED AT [facility]. * Zamzam Fink - 04/14/2021 2:58 PM EDT Bed: 25 Expected date: Expected time: Means of arrival: Comments: Triage PT documented in this [id number] Hospital Discharge instructions * Instructions* Georgie Vázquez MD - 04/14/2021 Continue to drink lots of water as you have been. Follow-up with Dr. Salinas. Return or call Dr. Salinas if you get worse. * Attachments The following attachments cannot be sent through Care Everywhere. * Cramp: Muscle (Venezuelan) documented in this [id number] History of Present illness Narrative* At this [...] Stage III (moderate) [facility] Diagnosis COPD exacerbation (HCC)- Primary Obstructive chronic bronchitis with exacerbation Screening for lung cancer [facility]* Diagnosis Pain of upper abdomen- Primary Nausea Nausea alone Diarrhea, unspecified type Pain of upper abdomen Nausea Nausea alone Pain of upper abdomen Nausea Nausea alone [facility]* Diagnosis Onset Date Resolution Status Carnitine palmitoyltransferase II deficiency chronic Insomnia chronic Low back pain chronic Neck pain chronic Peripheral arterial disease chronic Polyneuropathy chronic [facility] Work Phone: Evaluation note* Diagnosis Onset [...] ctive COPD (chronic obstructive pulmonary disease) noneactive [facility] Work Phone: Evaluation note* Diagnosis Onset [...] ctive COPD (chronic obstructive pulmonary disease) noneactive [facility] Work Phone: Evaluation note* 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 [facility] Diagnosis Onset Date Resolution Status Cervical radiculopathy acute Fatigue acute Insomnia chronic Low back pain chronic Neck pain chronic Peripheral arterial disease chronic Polyneuropathy chronic Chronic bronchitis chronic Hypoxia chronic FELISA (obstructive sleep apnea) chronic Smoking greater than 30 pack years chronic Coronary artery disease outside physical damage appraiser 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 Essential hypertension chron ic FELISA (obstructive sleep apnea) chronic Palpitations chronic Syncope chronic [facility] Work Phone: Evaluation note* Diagnosis Onset Date Resolution Status Cervical radiculopathy acute Fatigue acute Insomnia chronic Low back pain chronic Neck pain chronic Peripheral arterial disease chronic Polyneuropathy chronic Chronic bronchitis chronic Hypoxia chronic FELISA (obstructive sleep apnea) chronic Smoking greater than 30 pack years chronic Coronary artery disease outside physical damage appraiser teofilo Essential hypertension chron ic FELISA (obstructive [...] disease) noneactive Screening for breast cancer noneactive [facility] Work Phone: Evaluation note* Diagnosis Onset Date Resolution Status Chronic bronchitis chronic Hypoxia chronic FELISA (obstructive sleep apnea) chronic Smoking greater than 30 pack years chronic Coronary artery disease outside physical damage appraiser teofilo Essential hypertension chron ic FELISA (obstructive [...] disease) noneactive Screening for breast cancer noneactive [facility] Work Phone: Evaluation note* Diagnosis Onset Date Resolution Status Coronary artery disease outside physical damage appraiser teofilo Essential hypertension chron ic FELISA (obstructive [...] disease) noneactive Screening for breast cancer noneactive [facility] Work Phone: Evaluation note* Diagnosis Pain- Primary Generalized pain [facility] Diagnosis Trigger finger of left thumb- Primary [facility]* Diagnosis Onset Date Resolution Status Coronary artery disease outside physical damage appraiser teofilo Essential hypertension chron ic Nonsustained ventricular tachycardia chronic Obesity chronic FELISA (obstructive sleep apnea) chronic Palpitations chronic Syncope chronic Polyneuropathy acute [facility] Work Phone: Evaluation note* Diagnosis Onset Date Resolution Status Coronary artery disease outside physical damage appraiser teofilo Essential hypertension chron ic Nonsustained ventricular [...] pulmonary disease) noneactive Polyclonal gammopathy chroni c [facility] Work Phone: Evaluation note* Diagnosis Onset [...] abdominal pain nonea ctive Post-operative hypothyroidism noneactive [facility] Work Phone: Evaluation note* Diagnosis Coronary artery disease, angina presence unspecified, unspecified vessel or lesion type, unspecified whether [place] or transplanted heart Cardiomyopathy, unspecified type ([facility]) Sleep apnea, unspecified type Chronic obstructive pulmonary disease, unspecified COPD type ([facility]) Hypertension, unspecified type Abnormal electrocardiogram Nonspecific abnormal electrocardiogram (ECG) (EKG) Chest pain, unspecified type 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[facility]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 Rectal prolapse- Primary Chest pain- Primary Unspecified chest pain Stable angina (HCC) Other and unspecified angina pectoris Pain of upper abdomen Pain- Primary Generalized pain documented in this encounter 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 note* Diagnosis Coronary artery disease, angina presence unspecified, unspecified vessel or lesion type, unspecified whether [place] or transplanted heart Cardiomyopathy, unspecified type (HCC) [...] Stage III (moderate) KRISTIN (acute kidney injury) ([facility]) Non-traumatic rhabdomyolysis Diarrhea, unspecified type Rectal [...] joint, unspecified laterality [facility]* Diagnosis Coronary artery disease, angina presence unspecified, unspecified vessel or lesion type, unspecified whether [place] or transplanted heart Cardiomyopathy, unspecified type (HCC) [...] ventricular tachycardia Palpitations NSVT (nonsustained ventricular tachycardia) ([facility]) [facility]* Diagnosis Coronary artery disease, angina presence unspecified, unspecified vessel or lesion type, unspecified whether [place] or transplanted heart Cardiomyopathy, unspecified type (HCC) [...] congestive heart failure, unspecified heart failure type ([facility]) SIRS (systemic inflammatory response syndrome) (HCC) Systemic inflammatory response syndrome, unspecified Pneumonia Pneumonia, organism unspecified CKD (chronic kidney disease) Chronic kidney disease, unspecified Acute exacerbation of chronic obstructive pulmonary disease (COPD) (HCC) Obstructive chronic bronchitis with exacerbation Elevated CPK Other nonspecific abnormal serum enzyme levels 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[facility]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 Myalgia Unspecified myalgia and myositis COPD exacerbation ([facility]) Obstructive chronic bronchitis with exacerbation [facility]* Diagnosis Coronary artery disease, angina presence unspecified, unspecified vessel or lesion type, unspecified whether [place] or transplanted heart Cardiomyopathy, unspecified type ([facility]) Sleep apnea, unspecified type Chronic obstructive pulmonary disease, unspecified COPD type ([facility]) Hypertension, unspecified type Abnormal electrocardiogram Nonspecific abnormal electrocardiogram (ECG) (EKG) Chest pain, unspecified type 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 states she [...] sent through Care Everywhere. * High-Fiber Diet (Venezuelan) [facility] Dis[facility] instructions[facility] Instructions Date [facility]: [facility] Reuwwr for referral (narrative)No reason for referral information availableWACMC Healthcare System Work Phone: reason for visit Narrative* Auth/Cert Specialty Diagnoses / Procedures Referred By Contac t Referred To Contact Diagnoses Rectal prolapse Rectal prolapse [K62.3] Procedures WI EXCIS RECTAL PROLAPSE,PERINEAL Jada Vargas MD [address] [facility] [address] [place] [address] Referral ID Status Reason Start Date Expiration Date Visits Re quested Visits Authorized [id number] 03/07/2022 1 1 [facility] Assessments Diagnosis Surgery follow-up - Primary Diagnosis Coronary artery disease, angina presence unspecified, unspecified vessel or lesion type, unspecified whether [place] or transplanted heart Cardiomyopathy, unspecified type ([facility]) Sleep apnea, unspecified type Chronic obstructive pulmonary disease, unspecified COPD type (HCC) Hypertension, unspecified type Abnormal electrocardiogram Nonspecific abnormal electrocardiogram (ECG) (EKG) Chest pain, unspecified type 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[facility]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 Diagnosis Cervical [...] Documents on File Type Date Recorded Patient Debone Processing Supervisor Expl anation Advance Directives and Living Will Latest Code Status on File Code Status Date Activated Date Inactivated Comments Full Code 07/15/2015 4:39 PM 07/16/2015 5:24 PM Documents on File Type Date Recorded Patient Debone Processing Supervisor Expl anation Advance Directives and Livin g Will 04/10/2019 12:40 PM Documents on File Type Date Recorded Patient Debone Processing Supervisor Expl anation Advance Directives and Livin g Will 05/07/2019 2:35 PM Documents on File Type Date Recorded Patient Debone Processing Supervisor Expl anation Advance Directives and Livin g Will 05/15/2020 12:00 AM Documents on File Type Date Recorded Patient Debone Processing Supervisor Expl anation Advance Directives and Livin g Will 09/15/2020 12:00 AM Latest Code Status on File Code Status Date Activated Date Inactivated Comments Full Code 07/15/2015 4:39 PM 07/16/2015 5:24 PM Documents on File Type Date Recorded Patient Debone Processing Supervisor Expl anation Advance Directives and Livin g Will 11/02/2020 1:59 PM Documents on File Type Date Recorded Patient Debone Processing Supervisor Expl anation Advance Directives and Livin g Will 11/09/2020 12:00 AM Documents on File Type Date Recorded Patient Debone Processing Supervisor Expl anation Advance Directives and Livin g Will 11/09/2020 12:00 AM Documents on File Type Date Recorded Patient Debone Processing Supervisor Expl anation Advance Directives and Livin g Will 05/07/2019 2:35 PM Documents on File Type Date Recorded Patient Debone Processing Supervisor Expl anation Advance Directives and Livin g Will 04/14/2021 3:22 PM Documents on File Type Date Recorded Patient Debone Processing Supervisor Expl anation Advance Directives and Livin g Will 05/30/2021 8:35 PM Documents on File Type Date Recorded Patient Debone Processing Supervisor Expl anation Advance Directives and Livin g Will 05/30/2021 8:35 PM Documents on File Type Date Recorded Patient Debone Processing Supervisor Expl anation Advance Directives and Livin g Will 12/29/2021 3:40 PM Documents on File Type Date Recorded Patient Debone Processing Supervisor Expl anation Advance Directives and Livin g Will 12/29/2021 3:40 PM Documents on File Type Date Recorded Patient Debone Processing Supervisor Expl anation Advance Directives and Livin g Will 02/25/2022 3:40 PM Documents on File Type Date Recorded Patient Debone Processing Supervisor Expl anation Advance Directives and Livin g Will 03/04/2022 3:00 PM Documents on File Type Date Recorded Patient Debone Processing Supervisor Expl anation Advance Directives and Livin g [...] Do you have a Healthcare Power of Hand Roller? No June 12, 2024 9:25pm Living Will No January 01 5:37pm Do you have a Healthcare Power of Hand Roller? No January 01, 2025 5:37pm Date Activated [...] Do you have a Healthcare Power of Hand Roller? No June 12, 2024 9:25pm Advance Directive Response Recorded Date/ Time Living Will No June 12, 2024 9:25pm Do you have a Healthcare Power of Hand Roller? No June 12, 2024 9:25pm Do you have a Healthcare Power of Hand Roller? No July 17, 2025 7:12pm Advance Directive Response Recorded Date/ Time Living Will No June 12, 2024 9:25pm Do you have a Healthcare Power of Hand Roller? No June 12, 2024 9:25pm Do you have a Healthcare Power of Hand Roller? No July 17, 2025 11:58pm Reason for Referral Status Reason Specialty Diagnoses / Procedures Referred By Contact Referred To Contact Pending Review Cardiology Diagnoses Abnormal electrocardiogram Cardiomyopathy, unspecified type (HCC) Hypertension, unspecified type Procedures Echocardiogram complete Whitley Martinez MD [address] [place] [address] Status Reason Specialty Diagnoses / Procedures Referre d By Contact Referred To Contact Closed Diagnoses Myopathy Procedures MRI LONG BONE NEUROGRAPHY LOWER EXTREMITY LEFT Brittany Rushing MD [address] [place] [address] Status Reason Specialty Diagnoses / Procedures Referre d By Contact Referred To Contact Closed Diagnoses Osteoarthritis of spine with radiculopathy, lumbar region Procedures MRI SPINE LUMBAR WITHOUT CONTRAST Brittany Rushing MD [address] [place] [address] Status Reason Specialty Diagnoses / Procedures Referre d By Contact Referred To Contact Closed Diagnoses Cervical spine disease Procedures MRI SPINE CERVICAL WITHOUT CONTRAST Brittany Rushing MD [address] [place] [address] Status Reason Specialty Diagnoses / Procedures Referre d By Contact Referred To Contact Closed Radiology Diagnoses Right hip pain Procedures MR Hip Right Without Contrast Rusty Dozier MD [address] [place] [address] Status Reason Specialty Diagnoses / Procedures Referre d By Contact Referred To Contact Closed Cardiology Diagnoses Abnormal electrocardiogram Cardiomyopathy, unspecified type (HCC) Hypertension, unspecified type Procedures Echocardiogram complete Whitley Martinez MD [address] [place] [address] Status Reason Specialty Diagnoses / Procedures Referre d By Contact Referred To Contact Closed Cardiology Diagnoses Claudication of lower extremity (HCC) Procedures Ultrasound ankle / brachial indices extremity complete Elana Pena, DO [address] [place] [address] Specialty Diagnoses / Procedures Referred By Contac t Referred To Contact Otolaryngology Diagnoses Dizzy Jonathan RutherfordDonna, CHIEF OF ANESTHESIOLOGY [address] [place] [address] Alan Saba MD [address] [facility] Destiny [address] [place] [address] Referral ID Status Reason Start Date Expiration Date V isits Requested Visits Authorized [id number] Pending Review 07/22/2021 07/22/2022 1 1 Specialty Diagnoses / Procedures Referred By Contac t Referred To Contact General Surgery Diagnoses Rectal prolapse Jonathan Rutherford Monica, CHIEF OF ANESTHESIOLOGY [address] [phone] Jada Vargas MD [address] [address] Referral ID Status Reason Start Date Expiration Date V isits Requested Visits Authorized [id number] Pending Review 07/29/2021 07/29/2022 1 1 Specialty Diagnoses / Procedures Referred By Contac t Referred To Contact Radiology Diagnoses Screening for lung cancer Chronic obstructive pulmonary disease, unspecified COPD type (HCC) Procedures CT Lung Cancer Screening Estrada Garcia MD [address] [address] Referral ID Status Reason Start Date Expiration Date V isits Requested Visits Authorized [id number] New Request 12/30/2021 12/30/2022 1 1 Specialty Diagnoses / Procedures Referred By Contac t Referred To Contact Cardiology Diagnoses Rectal prolapse Preoperative testing Procedures ECG 12 Lead Jada Vargas MD [id number] [place] [address] Referral ID Status Reason Start Date Expiration Date V isits Requested Visits Authorized [id number] Authorized 03/08/2022 03/08/2023 1 1 Specialty Diagnoses / Procedures Referred By Jacob mccauley Referred To Contact Radiology Diagnoses Screening for lung cancer Personal history of nicotine dependence Procedures CT Lung Cancer Screening Estrada Garcia MD [facility] Vini Fraser [address] [address] Referral ID Status Reason Start Date Expiration Date V isits Requested Visits Authorized [id number] New Request 01/05/2023 01/05/2024 1 1 Instructions * Patient Instructions* Hayley Glez RN - 04/05/2019 2:23 PM EDT .How to contact your Care Team: Provider: Whitley [place] MD [facility] Nurse: Hayley Glez RN In case of an emergency please call 911. REFILLS: When in need for refills please call your care team or the office at [phone]. Please include medication name, pharmacy name, and specify 30-day or 90-day supply. Please check with your pharmacy within 24 hours of request for your refill. You must follow up as directed to continue current refills. Thank you! documented in this encounter History of Present Illness * Whitley Martinez MD - 04/05/2019 2:25 PM EDT OFFICE CONSULTATION NOTE [facility] [address]) 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 The patient [...] TOTAL THYROIDECTOMY; Surgeon: Lopez Alonso MD; Location: [facility] OR; Service: US ECHO TRANSTHORACIC [...] MD Authorized by: Rivas Jules MD CPT 67326 - Large Joint Arthrocentesis: Consent given by: [...] PM EST [facility] [address] ([address]) [facility] [address] [facility] [id number] Radha Shafer is a 60 y.o. female [...] Conte MD - 11/24/2020 9:43 AM EST [facility] - Neurology [address] 2nd floor [place], [place] [id number] Nerve Conduction & EMG Report Patient: Radha [...] Neurophysiology, Neurology, Vascular Neurology and Sleep Medicine [facility] [place] [phone] Nota bene: Portions of this chart was created using [employer] voice recognition software. Occasional wrong-word or sound-like [...] Normal documented in this encounter* Flori Rodrigues, [facility] - 11/09/2020 10:30 AM EST Associated Order(s): LG Jt Injection/Arthrocentesis: R knee Post-Procedure Diagnose(s): Primary osteoarthritis of right knee LG Jt Injection/Arthrocentesis: R knee Performed by: Flori Rodrigues CNP Authorized by: Flori Rodrigues CNP CPT [id number] - Large Joint Arthrocentesis: Consent given by: [...] TOTAL THYROIDECTOMY; Surgeon: Lopez Alonso MD; Location: [facility] OR; Service: US ECHO TRANSTHORACIC FOLLOWUP LIMITED WRIST SURGERY Right Social History Socioeconomic History Marital status: Spouse name: Not on file Number of children: Not on file Years of education: Not on file Highest education level: Not on file Occupational History 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 * Joint Pain (Venezuelan) documented in this encounter Chief Complaint and Reason for Visit Chief Complaint FOLLOW UP R/S EORDER Reason for Visit Carnitine palmitoylt ransferase II deficiency Insomnia Low back pain Neck pain Peripheral arterial disease Polyneuropathy Chief Complaint FOLLOW UP R/S EORDER MANAGER SCHEDULING, EST. CARE, PT NEEDS NPP Reason for [...] disease) Chief Complaint FOLLOW UP R/S EORDER MANAGER SCHEDULING, EST. CARE, PT NEEDS NPP CERVICAL RAD [...] COPD (chronic obstructive pulmonary disease) Chief Complaint MANAGER SCHEDULING, EST. CARE, PT NE EDS NPP CERVICAL [...] section and content) DATE CREATED AUTHOR 05/01/2018 [facility] DATE CREATED AUTHOR AUTHOR'S ORGANIZ ATION 07/04/2018 [facility] DATE CREATED AUTHOR AUTHOR'S ORGANIZ ATION 01/29/2019 [facility] DATE CREATED AUTHOR AUTHOR'S ORGANIZ ATION 02/16/2019 [facility] DATE CREATED AUTHOR AUTHOR'S ORGANIZ ATION 07/25/2019 [facility] DATE CREATED AUTHOR AUTHOR'S ORGANIZ ATION 04/25/2021 [employer] DATE CREATED AUTHOR AUTHOR'S ORGANIZ ATION 07/09/2021 [facility] DATE CREATED AUTHOR AUTHOR'S ORGANIZ ATION 05/01/2025 [facility] DATE CREATED AUTHOR AUTHOR'S ORGANIZ ATION 07/26/2025 [facility] DATE CREATED AUTHOR AUTHOR'S ORGANIZ ATION 08/18/2025 [facility] DATE CREATED AUTHOR AUTHOR'S ORGANIZ ATION 09/07/2025 [facility] DATE CREATED AUTHOR AUTHOR'S ORGANIZ ATION 09/13/2025 [facility] Reason for Visit (unrecogniz ed section and [...] unspecified vessel or lesion type, unspecified whether [place] or transplanted heart Cardiomyopathy, unspecified type (HCC) Oscar Vinson MD [facility] [place] [address] [facility] [address] [facility] [place] [address] Reason Comments Results Status Reason Specialty Diagnoses / Procedures Referre d By Contact Referred To Contact Status Reason Specialty Diagnoses / Procedures Referre d By Contact Referred To Contact Closed Cardiology Diagnoses Abnormal electrocardiogram Cardiomyopathy, unspecified type (HCC) Hypertension, unspecified type Procedures Echocardiogram complete Whitley Martinez MD [address] [place] [address] Status Reason Specialty Diagnoses / Procedures Referre d By Contact Referred To Contact Closed Cardiology Diagnoses Claudication of lower extremity (HCC) Procedures Ultrasound ankle / brachial indices extremity complete Elana Pena, DO [address] [place] [address] Reason Comments Pain Status Reason Specialty Diagnoses / Procedures Referred By Contact Referred To Contact Closed Orthopedic Surgery Diagnoses Chronic right shoulder pain Jonathan Rutherford, CHIEF OF ANESTHESIOLOGY [address] [place] [address] Rivas Jules MD [address] [place] [address] Reason Comments Joint Swelling Status Reason Specialty Diagnoses / Procedures Referred By Contact Referred To Contact Pending Review Specialty Services Required/Patien t's Best Interest Neurology Diagnoses Polyneuropathy Rusty Dozier MD [address] [place] [address] Eugenia Conte MD [address] [address] Reason Comments Leg Pain R leg pain [...] Contact Otolaryngology Diagnoses Dizzy Alexandre Jonathan Monica, CHIEF OF ANESTHESIOLOGY [address] [place] [address] Alan Saba MD [address] [place] [address] Referral ID Status Reason Start Date Expiration Date V isits Requested Visits Authorized [id number] Pending Review 07/22/2021 07/22/2022 1 1 Reason Comments Consult Pre-op Reason Onset Date Comments Medication Refill 01/07/2022 Reason Comments Rectal Prolapse Discuss surgery Reason Comments Rectal Bleeding Specialty Diagnoses / Procedures Referred By Contac t Referred To Contact Diagnoses Diarrhea Referral ID Status Reason Start Date Expiration Date Visits Re quested Visits Authorized [id number] 1 1 Reason Comments Follow-up Reason Onset [...] Expiration Date Visits Re quested Visits Authorized [id number] 1 1 Reason Comments Initial Visit (Intake) VT/Palpitations/ Flavia Specialty Diagnoses / Procedures Referred By Contac t Referred To Contact Cardiology Diagnoses Ventricular tachycardia (HCC) Palpitations Flavia Shine MD [address] [place] [address] Phone: tel:[phone] fax: [facility] [address] 3rd [place] [address] Phone: tel: fax: Referral ID Status Reason Start Date Expiration Date V isits Requested Visits Authorized [id number] Pending Review 08/14/2024 08/14/2025 1 1 Specialty Diagnoses / Procedures Referred By Jacob mccauley Referred To Contact Diagnoses COPD exacerbation (HCC) Acute hypoxic respiratory failure (HCC) Referral ID Status Reason Start Date Expiration Date Visits Re quested Visits Authorized [id number] 1 1 Reason Onset Date Comments Medication Prior Authorization (General) 024 Dojolvi Reason Onset Date Comments Refill Request 02/05/2025 Doljovi Reason Comments Shortness of Breath Specialty Diagnoses / Procedures Referred By Jacob mccauley Referred To Contact Diagnoses SOB (shortness of breath) Referral ID Status Reason Start Date Expiration Date Visits Re quested Visits Authorized [id number] 1 1 Reason Comments Follow-up 4 mo [...] on and content) ED PROVIDER NOTE [facility] NAME: Radha Shafer AGE: 60 y.o. 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 Specialty: Nurse Practitioner [address] [facility] [address] 2. Rivas Jules MD. Specialty: Orthopedic Surgery [address] [place] [address] Contact information for after-discharge care Follow-up information has not been specified. Fay Sanchez PA-C 11/02/20 1524 Pt states about 1 week ago she began having right knee swelling with pain /10. Pt did not take any pain medication [employer]BILE [employer]QUIPMENT [employer]IC. No redness noted to the area at this time. documented in this encounter ED PROVIDER NOTE [facility] NAME: Radha Shafer AGE: 59 y.o. 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 Rusty Dozier MD. Specialty: Neurology Why: Call first thing in the morning to arrange for follow-up [address] [facility] [address] Contact information for after-discharge care Follow-up information [...] Post Procedure 0812 (Given - Provider: Shaina Juáerz RN) 0853 (Given - Provider: Shaina Juárez [...] 1200 0724 (Given - Provider: Margie Huynh, SALES AGENT BUSINESS SERVICES)1425 (Given - Provider: Margie Huynh, SALES AGENT BUSINESS SERVICES)1913 (Given - Provider: Cecille Maria, SALES AGENT BUSINESS SERVICES) 0720 (Given - Provider: Margie Huynh, SALES AGENT BUSINESS SERVICES)1404 (Given - Provider: Margie Huynh, SALES AGENT BUSINESS SERVICES)2048 (Given - Provider: Mike Esqueda, SALES AGENT BUSINESS SERVICES) 0716 (Given - Provider: Aleisha Pickett, GILDA)1400 [...] Silva, GILDA)0711 (Given - Provider: Cecille Maria, SALES AGENT BUSINESS SERVICES)1404 (Given - Provider: Reema Anne, GILDA) aspirin [...] interval prolongation. 0006 (Given - Provid er: Kyala Mujica RN) melatonin Tab 5 mg 5 [...] 2330 0751 (Given - Provider: Aye Marshall, SALES AGENT BUSINESS SERVICES)1912 (Given - Provider: Bindu Watson, SALES AGENT BUSINESS SERVICES) 0707 (Given - Provider: Negar Wood, SALES AGENT BUSINESS SERVICES)2108 (Given - Provider: Delmy Brock, SALES AGENT BUSINESS SERVICES) 0812 (Given - Provider: Malika Davila, SALES AGENT BUSINESS SERVICES) cefTRIAXone (ROCEPHIN) IVPB 2 g (premix) (CANCELED) [...] at 0900 0844 (Given - Provider: Jaspreet Barnse RN) 1000 (Given - Provider: Anna Hairston) 0941 (Given - Provider: Berkley Back, JASON) methylPREDNISolone sod suc(PF) (SOLU-medrol) 40 mg () 40 mg, Intravenous, Every 8 hours scheduled, First dose on 09/21/24 at 2330, For 3 days 0537 (Given - Provider: Prmea Fowler RN)1353 (Given - Provider: Jaspreet Barnes [...] Alexandria Sanchez)1509 (Given - Provider: Esperanza Suggs, SALES AGENT BUSINESS SERVICES)1938 (Given - Provider: Noris Jaramillo) 0019 (Given - Provider: Noris Jaramillo)0328 (Given - Provider: Noris Jaramillo)0800 (Canceled Entry - Provider: Aleisha Pickett, SALES AGENT BUSINESS SERVICES - Comment: order changed) ipratropium-albuteroL (DUO-NEB) 0.5-2.5 mg/3 ml nebulizer solution 3 mL 3 mL, Inhalation, Every 6 hours scheduled (RT), First dose (after last modification) on Mon02/17/25 at 0815 0846 (Given - Provider: Aleisha Pickett, SALES AGENT BUSINESS SERVICES)1326 (Given - Provider: Evelina Ca, GILDA)1951 (Given - Provider: Belkys Silva, SALES AGENT BUSINESS SERVICES) 0101 (Given - Provider: Belkys Silva, GILDA)0724 [...] Olmedo, JASON)1999 (Given - Provider: Carolyn Ryder, JASNO) 0806 (Not Given - Provider: Marina Jarrett [...] For 2 doses, Anginal pain, may repeat [id number] x2, then notify physician. DO NOT CRUSH [...] Care Teams (unrecognized sec tion and content) Towel Sorter Relationship Specialty Start Date End Date Jonathan Rutherford, CHIEF OF ANESTHESIOLOGY [address] [place] [address] PCP - General Nurse Practitioner 11/02/20 Elana Pena, DO [address] [place] [address] Referring Physician Family Medicine 07/15/16 Jonathan Rutherford, CHIEF OF ANESTHESIOLOGY [address] [place] [address] Referring Physician Nurse Practitioner 07/22/21 Towel Sorter Relationship Specialty Start Date End Date Jonathan Rutherford, CHIEF OF ANESTHESIOLOGY [address] [place] [address] PCP - General Nurse Practitioner 11/02/20 Elana Pena, DO [address] [place] [address] Referring Physician Family Medicine 07/15/16 Jonathan Rutherford, CHIEF OF ANESTHESIOLOGY [address] [place] [address] Referring Physician Nurse Practitioner 07/22/21 Towel Sorter Relationship Specialty Start Date End Date Jonathan Rutherford CNP [address] [place] [address] PCP - General Nurse Practitioner 11/02/20 Elana Pena, DO [address] [place] [address] Referring Physician Family Medicine 07/15/16 Jonathan Rutherford, CHIEF OF ANESTHESIOLOGY [address] [place] [address] Referring Physician Nurse Practitioner 07/22/21 Towel Sorter Relationship Specialty Start Date End Date Jonathan Rutherford, CHIEF OF ANESTHESIOLOGY [address] [place] [address] PCP - General Nurse Practitioner 11/02/20 Elana Pena, DO [address] [place] [address] Referring Physician Family Medicine 07/15/16 Jonathan Rutherford, CHIEF OF ANESTHESIOLOGY [address] [place] [address] Referring Physician Nurse Practitioner 07/22/21 Towel Sorter Relationship Specialty Start Date End Date Jonathan Rutherford, CHIEF OF ANESTHESIOLOGY [address] [place] [address] PCP - General Nurse Practitioner 11/02/20 Elana Pnea, DO [address] [place] [address] Referring Physician Family Medicine 07/15/16 Jonathan Rutherford, CHIEF OF ANESTHESIOLOGY [address] [place] [address] Referring Physician Nurse Practitioner 07/22/21 Towel Sorter Relationship Specialty Start Date End Date Jonathan Rutherford, CHIEF OF ANESTHESIOLOGY [address] [place] [address] PCP - General Nurse Practitioner 11/02/20 Elana Pena, DO [address] [place] [address] Referring Physician Family Medicine 07/15/16 Jonathan Rutherford, CHIEF OF ANESTHESIOLOGY [address] [place] [address] Referring Physician Nurse Practitioner 07/22/21 Towel Sorter Relationship Specialty Start Date End Date Jonathan Rutherford, CHIEF OF ANESTHESIOLOGY [address] [place] [address] PCP - General Nurse Practitioner 11/02/20 Elana Pena, DO [address] [place] [address] Referring Physician Family Medicine 07/15/16 Jonathan Rutherford, CHIEF OF ANESTHESIOLOGY [address] [place] [address] Referring Physician Nurse Practitioner 07/22/21 Towel Sorter Relationship Specialty Start Date End Date Jonathan Rutherford CHIEF OF ANESTHESIOLOGY [address] [place] [address] PCP - General Nurse Practitioner 11/02/20 Jonathan Rutherford CHIEF OF ANESTHESIOLOGY [address] [place] [address] Referring Physician Nurse Practitioner 07/22/21 Towel Sorter Relationship Specialty Start Date End Date Jonathan Rutherford CHIEF OF ANESTHESIOLOGY [address] [place] [address] PCP - General Nurse Practitioner 11/02/20 Jonathan RutherfordDonna CHIEF OF ANESTHESIOLOGY [address] [place] [address] Referring Physician Nurse Practitioner 07/22/21 Towel Sorter Relationship Specialty Start Date End Date Jonathan Rutherford CHIEF OF ANESTHESIOLOGY [address] [place] [address] PCP - General Nurse Practitioner 11/02/20 Jonathan RutherfordDonna CHIEF OF ANESTHESIOLOGY [address] [place] [address] Referring Physician Nurse Practitioner 07/22/21 Towel Sorter Relationship Specialty Start Date End Date Jonathan RutherfordDonna CHIEF OF ANESTHESIOLOGY [address] [place] [address] PCP - General Nurse Practitioner 11/02/20 Jonathan RutherfordDonna, CHIEF OF ANESTHESIOLOGY [address] [place] [address] Referring Physician Nurse Practitioner 07/22/21 Towel Sorter Relationship Specialty Start Date End Date Jonathan RutherfordDonna CHIEF OF ANESTHESIOLOGY [address] [place] [address] PCP - General Nurse Practitioner 11/02/20 Jonathan Rutherford, CHIEF OF ANESTH[facility]IOLOG[facility] [address] [place] [address] Referring Physician Nurse Practitioner 07/22/21 Towel Sorter Relationship Specialty Start Date End Date Wilfridyonis Jonathan L., [facility]EST[facility] [address] [place] [address] PCP - General Nurse Practitioner 11/02/20 Jonathan Rutherford, CH[facility]F OF ANESTH[facility]IOLOGY [address] [place] [address] Referring Physician Nurse Practitioner 07/22/21 Towel Sorter Relationship Specialty Start Date End Date Wilfridvaelriaaugustin Jonathan L., CHIEF OF ANESTHESIOLOGY [address] [place] [address] PCP - General Nurse Practitioner 11/02/20 Jonathan Rutherford CHIEF OF ANESTHESIOLOGY [address] [place] [address] Referring Physician Nurse Practitioner 07/22/21 Towel Sorter Relationship Specialty Start Date End Date Jonathan Rutherford CHIEF OF ANESTHESIOLOGY [address] [place] [address] PCP - General Nurse Practitioner 11/02/20 Jonathan Rutherford CH[facility]F OF ANESTHESIOLOGY [address] [place] [address] Referring Physician Nurse Practitioner 07/22/21 Towel Sorter Relationship Specialty Start Date End Date Jonathan Rutherford CHIEF OF ANESTH[facility]IOLOGY [address] [place] [address] PCP - General Nurse Practitioner 11/02/20 Jonathan Rutherford CHIEF OF ANESTHESIOLOGY [address] [place] [address] Referring Physician Nurse Practitioner 07/22/21 Towel Sorter Relationship Specialty Start Date End Date Jonathan Rutherford, [facility]EST[facility]IOLOG[facility] [address] [place] [address] PCP - General Nurse Practitioner 11/02/20 Jonathan Rutherford, [facility] OF ANEST[facility]IOLOG[facility] [address] [place] [address] Referring Physician Nurse Practitioner 07/22/21 Towel Sorter Relationship Specialty Start Date End Date Jonathan Rutherford, CH[facility]F OF ANESTHESIOLOGY [address] [place] [address] PCP - General Nurse Practitioner 11/02/20 Jonathan Rutherford, CHIEF OF ANESTHESIOLOGY [address] [place] [address] Referring Physician Nurse Practitioner 07/22/21 Towel Sorter Relationship Specialty Start Date End Date Jonathan Rutherford, VENDOR ANALYST [address] [facility] [place] [address] PCP - General Nurse Practitioner 11/23/20 Towel Sorter Relationship Specialty Start Date End Date Jonathan Rutherford, VENDOR ANALYST [address] [facility] [place] [address] PCP - General Nurse Practitioner 11/23/20 Towel Sorter Relationship Specialty Start Date End Date Jonathan Rutherford, VENDOR ANALYST [address] [facility] [place] [address] PCP - General Nurse Practitioner 11/23/20 Team Status: Active Member Role Status Dates Dr. Jennifer Gordon MD Primary Care Provider Active Team Status: Inactive Member Role Status Dates Dr. Rusty Dozier MD Attending Provider Active Team Status: Inactive Member Role Status Dates Jonathan Rutherford MANAGER SCHEDULING, MANAGER SCHEDULING-C Referring Provider Active Dr. Jennifer Gordon MD [facility] Active Team Status: Inactive Member Role Status Dates Jonathan Rutherford MANAGER SCHEDULING, MANAGER SCHEDULING-C Primary Care Provider Active Dr. Rusty Dozier [...] Status: Inactive Member Role Status Dates Dr. Rsuty Dozier MD Attending Provider, Referring Provider Active [...] Dr. Rusty Dozier MD Referring Provider Active Towel Sorter Relationship Specialty Start Date End Date Jonathan Rutherford, VENDOR ANALYST [address] [place] [address] PCP - General Nurse Practitioner 11/23/20 Team Status: Inactive Member Role Status Dates Dr. Jennifer Gordon MD Primary Care Provider, Referri ng Provider Active Sasha Heredia MANAGER SCHEDULING, MANAGER SCHEDULING-C Attending Provider Active Team Status: Inactive Member Role Status Dates Dr. Jennifer Gordon MD Primary Care Provider, Referri ng Provider Active Dr. Flavia Shine MD Attending Provider Active Team Status: Active Member Role Status Dates Dr. Jenniefr Gordon MD Primary Care Provider Active Aleisha [...] Inactive Member Role Status Dates Sasha Heredia MANAGER SCHEDULING, MANAGER SCHEDULING-C Attending Provider, Referrin g Provider Active Dr. Jennifer Gordon MD Primary Care Provider Active Towel Sorter Relationship Specialty Start Date End Date Jonathan Rutherford, CHIEF OF ANESTHESIOLOGY [address] [place] [address] PCP - General Nurse Practitioner 11/02/20 Jonathan Rutherford, CHIEF OF ANESTHESIOLOGY [address] [place] [address] Referring Physician Nurse Practitioner 07/22/21 Towel Sorter Relationship Specialty Start Date End Date Jonathan Rutherford, CHIEF OF ANESTHESIOLOGY [address] [place] [address] PCP - General Nurse Practitioner 11/02/20 Jonathan Rutherford, CHIEF OF ANESTHESIOLOGY [address] [place] [address] Referring Physician Nurse Practitioner 07/22/21 Towel Sorter Relationship Specialty Start Date End Date Jonathan Rutherford, [facility] [address] [place] [address] PCP - General Nurse Practitioner 11/23/20 Team [...] MD Attending Provider, Referri ng Provider Active Towel Sorter Relationship Specialty Start Date End Date Jonathan Rutherford, [facility] [address] [id number] PCP - General Nurse Practitioner 11/23/20 Team [...] DO Attending Provider, Referring Pro vider Active Towel Sorter Relationship Specialty Start Date End Date Jonathan Rutherford, [facility] [address] [place] [address] PCP - General Nurse Practitioner 11/02/20 Jonathan Rutherford, [facility] [address] [place] [address] Referring Physician Nurse Practitioner 07/22/21 Towel Sorter Relationship Specialty Start Date End Date No, Physician [facility] PCP - General 09/02/24 Towel Sorter Relationship Specialty Start Date End Date No, Physician [facility] PCP - General 09/02/24 Towel Sorter Relationship Specialty Start Date End Date No, Physician [facility] PCP - General 09/02/24 Towel Sorter Relationship Specialty Start Date End Date No, Physician [facility] PCP - General 09/02/24 Towel Sorter Relationship Specialty Start Date End Date No, Physician [facility] PCP - General 09/02/24 Towel Sorter Relationship Specialty Start Date End Date Alexandre Jonathan JUANIS KruseP [address] [place] [address] PCP - General Nurse Practitioner 11/23/20 Towel Sorter Relationship Specialty Start Date End Date No, Physician [facility] PCP - General 09/02/24 Team Status: Inactive [...] Inactive Member Role Status Dates Dr. Jennifer oGrdon MD Primary Care Provider Active Start: January [...] February 03, 2025 End: February 03, 2025 Towel Sorter Relationship Specialty Start Date End Date No, Physician [facility] PCP - General 09/02/24 Jennifer [place] Primary Care Physician 02/17/25 Team Status: Inactive [...] Status: Inactive Member Role Status Dates Dr. Jenniefr Gordon MD Primary Care Provider Active Start: [...] Active Start: April 17, 2025 Sasha Heredia MANAGER SCHEDULING, MANAGER SCHEDULING-C Attending Provider Active Start: April 17, 2025 Sasha Heredia MANAGER SCHEDULING, MANAGER SCHEDULING-C Referring Provider Active Start: April 17, 2025 Team Status: Inactive Member Role Status Dates Dr. Jennifer Gordon MD Primary Care Provider Active Start: April 17, 2025 End: April 17, 2025 Sasha Heredia MANAGER SCHEDULING, MANAGER SCHEDULING-C Attending Provider Active Start: April 17, 2025 End: April 17, 2025 Sasha Heredia MANAGER SCHEDULING, MANAGER SCHEDULING-C Referring Provider Active Start: April 17, 2025 End: April 17, 2025 Towel Sorter Relationship Specialty Start Date End Date No, Physician [facility] PCP - General 09/02/24 Jennifer [place] Primary Care Physician 02/17/25 Towel Sorter Relationship Specialty Start Date End Date Not On File, [facility] [address] [place] [address] PCP - General Unknown Physician Specialty 04/14/25 [...] End: April 17, 2025 Sasha Heredia NP, MANAGER SCHEDULING-C Attending Provider Active Start: April 17, 2025 End: April 17, 2025 Sasha Heredia MANAGER SCHEDULING, MANAGER SCHEDULING-C Referring Provider Active Start: April 17, 2025 [...] May 07, 2025 End: May 07, 2025 Towel Sorter Relationship Specialty Start Date End Date Not On File, [facility] [address] [place] [id number] PCP - General Unknown Physician Specialty 04/14/25 Towel Sorter Relationship Specialty Start Date End Date Not On File, [facility] [address] [place] [id number] PCP - General Unknown Physician Specialty 04/14/25 [...] End: April 17, 2025 Sasha Heredia NP, MANAGER SCHEDULING-C Attending Provider Active Start: April 17, 2025 End: April 17, 2025 Sasha Heredia NP, MANAGER SCHEDULING-C Referring Provider Active Start: April 17, 2025 [...] 2025 End: April 17, 2025 Sasha Heredia MANAGER SCHEDULING, MANAGER SCHEDULING-C Attending Provider Active Start: April 17, 2025 End: April 17, 2025 Sasha Heredia MANAGER SCHEDULING, MANAGER SCHEDULING-C Referring Provider Active Start: April 17, 2025 [...] Status: Active Member Role/Relationship Status Dates Dr. Jeninfer Gordon MD Primary [...] 2025 End: April 17, 2025 Sasha Heredia MANAGER SCHEDULING, MANAGER SCHEDULING-C Attending Provider Active Start: April 17, 2025 End: April 17, 2025 Sasha Heredia MANAGER SCHEDULING, MANAGER SCHEDULING-C Referring Provider Active Start: April 17, 2025 [...] 2025 End: June 17, 2025 Colette Black MANAGER SCHEDULING-C Attending Provider Active Start: June 17, 2025 End: June 17, 2025 Team Status: Inactive Member Role/Relationship Status Dates Dr. Jennifer Gordon MD Primary Care Provider Active Start: June 24, 2025 End: June 24, 2025 Colette Black NP-C Attending Provider Active Start: June 24, 2025 End: June 24, 2025 Colette Black MANAGER SCHEDULING-C Referring Provider Active Start: June 24, 2025 End: June 24, 2025 Team Status: Inactive Member Role/Relationship Status Dates Dr. Jennifer Gordon MD Primary Care Provider Active Start: June 26, 2025 End: June 26, 2025 Dr. Jennifer Gordon MD Referring Provider Active Start: June 26, 2025 End: June 26, 2025 Mihaela Ungerer , MANAGER SCHEDULING-C Attending Provider Active Start: June 26, 2025 End: June 26, 2025 Team Status: Active Member Role/Relationship Status Dates Dr. Jennifer Gordon MD Primary Care Provider Active Start: June 26, 2025 Mihaela Ungerer , MANAGER SCHEDULING-C Attending Provider Active Start: June 26, 2025 Mihaela Ungerer , MANAGER SCHEDULING-C Referring Provider Active Start: June 26, 2025 Team Status: Inactive Member Role/Relationship Status Dates Dr. Jennifer Gordon MD Primary Care Provider Active Start: June 26, 2025 End: June 26, 2025 Mihaela Ungerer , MANAGER SCHEDULING-C Attending Provider Active Start: June 26, 2025 End: June 26, 2025 Mihaela Ungerer , MANAGER SCHEDULING-C Referring Provider Active Start: June 26, 2025 End: June 26, 2025 Team Status: Active Member Role/Relationship Status Dates Dr. Jennifer Gordon MD Primary Care Provider Active Start: July 11, 2025 Colette Black MANAGER SCHEDULING-C Attending Provider Active Start: July 11, 2025 Colette Black MANAGER SCHEDULING-C Referring Provider Active Start: July 11, 2025 [...] Provider Active Start: July 19, 2025 Dr. Arnle Cano MD Other Provider Active Start: July [...] Other Provider Active Start: July 20, 2025 Towel Sorter Relationship Specialty Start Date End Date Andre Martinez MD [address] [place] [address] PCP - General Internal Medicine 07/22/25 Team [...] 2025 End: April 17, 2025 Sasha Heredia MANAGER SCHEDULING, MANAGER SCHEDULING-C Attending physician Active Start: April 17, 2025 End: April 17, 2025 Sasha Heredia MANAGER SCHEDULING, MANAGER SCHEDULING-C Referring Provider Active Start: April 17, 2025 [...] 2025 End: June 26, 2025 Mihaela Simpson MANAGER SCHEDULING-C Referring Provider Active Start: June 26, 2025 End: June 26, 2025 Team Status: Inactive Member Role/Relationship Status Dates Dr. Jennifer Gordon MD Primary care physician Active Start: July 11, 2025 End: July 11, 2025 LOUIS BarrosC Attending physician Active Start: July 11, 2025 End: July 11, 2025 Colette M Rufener , MANAGER SCHEDULING-C Referring Provider Active Start: July 11, 2025 [...] Cano MD Nurse Practitioner Active Start: July Towel Sorter Relationship Specialty Start Date End Date Andre [place] MD [address] [place] [address] PCP - General Internal Medicine 07/22/25 Goals [...] BE BASED ON THE PRIMARY CLINICAL RECORDS. [facility] [employer] [facility]. provides no warranty or guarantee of the accuracy or completeness of information in this document.
--- NOTE | 2025-10-12 00:51 | ED.RN ---
Verbal order given by Dr Montano given to increase sodium chloride to 120ml/hr.
[2025-10-12] MEDS: DOXEPIN HCL 50 MG CAPSULE 100 MG PO ×2 (02:32→20:51)
[2025-10-12] MEDS: Sodium Chloride 19.25 MEQ in Dextrose 10%-Water 250 ML 50 MEQ IV ×2 (02:40→08:18)
--- OUTSIDE RECORDS SUMMARY | 2025-10-12 02:45 | XMS RPT_ITS | CCD ---
Author Organization [facility] Care Team Providers Care Vehicle Body Maker Name Role Phone Elana Pena Unavailable Elana Pena Unavailable Unavailable Unavailable Unavailable ELANA PENA Unavailable Unavailable MANUELITO MORALES Unavailable Unavailable MANUELITO MORALES A Unavailable Unavailable ELANA PENA Unavailable Unavailable DENNIS ATKINS Unavailable Unavailable BETY HERNANDEZ Unavailable Unavailable BETY HERNANDEZ Unavailable Unavailable Oscar Vinson A Admitting Unavailable Robeline Oscar A Attending Unavailable Tom, Tyshawn K [...] Pena Primary Care Provider Elana Pena Unavailable [phone] Elana Pena Primary Care Provider [phone] Becky Elana Ramírez Primary Care Provider Becky Elana Ramírez Unavailable Jonathan Rutherford. Primary Care Provider Elana Pena DO Unavailable Wilfridlinger WOLF HUNTER, Jonathan L. Primary Care Provider Hellinger WOLF HUNTER, Jonathan L. Unavailable Elana Pena DO Unavailable Hellinger WOLF HUNTER, Jonathan L. Unavailable Hellinger WOLF HUNTER, Jonathan L. Primary Care Provider [place]ellinger WOLF HUNTER, Jonathan L. Unavailable Dr. Rusty Dozier Attending Provider Alexandre OLIVAREZP Jonathan Lee Primary Care Provider [facility], [facility] Jonathan Referring Provider [phone] Dr. Jennifer Gordon Primary Care Provider Dr. Jennifer Gordon Attending Provider [phone] Dr. Oscar Arshad Attending Provider [facility] [facility], [facility] Jonathan Referring Provider [phone] Dr[address] Jennifer Gordon Primary Care Provider Dr. Jennifer Gordon Attending Provider [phone] Dr. Oscar Arshad Attending Provider [phone] Rusty Dozier Referring Provider [phone] Dr. Rusty Dozier Attending Provider [phone] Dr. Jennifer Gordon Referring Provider [phone] Dr. Rusty Dozier Referring Provider Dr. Jennifer Gordon Primary Care Provider Dr. Jennifer Gordon Referring Provider Giovanna [facility] [facility], [facility] Sasha Attending Provider Aleisha Chisholm Attending Provider [...] Dr. Jennifer Gordon Referring Provider [phone] [facility] Jonathan MELCHOR Primary Care Provider [facility] Jonathan MELCHOR Unavailable Dr. Jennifer Gordon [...] Provider Barrera HUNTER, Dr. Espinal Attending Provider [phone] Barrera HUNTER, Dr. Espinal Emergency Provider Hui Roberts Attending Provider [phone] Dorie HUNTER, Dr. Charles Attending Provider [phone] Cary Jacobsen MD Attending Provider [phone] Hui Roberts Referring Provider [phone] Heidi HUNTER, Dr. Rodriguez Primary Care Provider [phone] Heidi HUNTER, Dr. Rodriguez Referring Provider Cary Jacobsen MD Referring Provider [phone] Wayne [facility]-CColette Attending Provider Dr. Jennifer Gordon MD Attending Provider Giovanna JIMENEZ-CSasha Attending Provider Giovanna JIEMNEZ-CSasha Referring Provider NO, PHYSICIAN Primary Care Unavailable [...] [phone] Heidi HUNTER, Dr. Rodriguez Referring Provider Dorie HUNTER, Dr. Charles Attending Provider [phone] Hui Roberts Attending Provider Jacoby HUNTER, Dr. Ojeda Attending Provider Heidi HUNTER, Dr. Rodriguez Primary Care Provider [phone] Cary Jacobsen MD Attending Provider [phone] Dr. Jennifer Gordon MD Referring Provider Hui Roberts Attending Provider Dorie HUNTER, Dr. Charles Attending Provider [phone] Heidi HUNTER, Dr. Rodriguez Primary Care Provider [phone] Cary Jacobsen MD Attending Provider [phone] Wayne [facility], Colette Wetzel Referring Provider Tatiana [facility] [facility] [facility]-C, Mihaeal Attending Provider [phone] Heidi HUNTER, Dr. Rodriguez Primary Care Provider [phone] Dr. Jennifer Gordon MD Referring Provider Ungbrandonr [facility] [facility], Mihaela Referring Provider Gunnar HUNTER, Dr. Durbin Emergency Provider [phone] de Jesus Alberto DO, Dr. Mcwilliams Admit [...] Heidi HUNTER, Dr. Rodriguez Referring Provider Giovanna [facility] [facility] [facility], Sasha Attending Physician Wayne [facility] [facility], Colette Wetzel Attending Physician Tatiana [facility] [facility], Mihaela Attending Physician Gunnar HUNETR, Dr. Durbin Emergency Department Physician Deshpande DO, [...] Cano Consulting Unavailable Heidi, Jennifer Referring Unavailable Madison, Jennifer Primary Care Unavailable Madison, Jennifer Attending Unavailable Heidi, Jennifer Referring Unavailable Heidi, Jennifer Attending Unavailable Madison, Jennifer Primary Care Unavailable Heidi, Jennifer Primary Care Unavailable Teddy Rust Attending Unavailable Madison, Jennifer Primary Care Unavailable Giovanna JIMENEZ, Sasha Attending Unavailable Sasha Heredia NP Referring Unavailable Madison, Jennifer Primary Care Unavailable Vincent Hood Attending Unavailable Elana Deshpande Consulting Unavailable Elana Deshpande Admitting Unavailable Arnel Cano Consulting Unavailable Vincent Hood Consulting Unavailable Arnel Cano Attending Unavailable Cary Jacobsen Attending Unavailable Madison, Jennifer Referring Unavailable Heidi, Jennifer Primary Care Unavailable Cary Jacobsen Referring Unavailable Heidi, Jennifer Primary Care Unavailable Cary Jacobsen Attending Unavailable Madison, Jennifer Primary Care Unavailable Melvin Oshea Attending Unavailable Heidi, Jennifer Referring Unavailable Madison, Jennifer Primary Care Unavailable Cary Jacobsen Attending Unavailable Elana Deshpande Attending Unavailable Hui Whitehead Attending Unavailable Heidi, Jennifer Referring Unavailable Madison, Jennifer Primary Care Unavailable Hui Whitehead Attending Unavailable Heidi, Jennifer Referring Unavailable Madison, Jennifer Primary Care Unavailable Heidi, Jennifer Attending Unavailable Heidi, Jennifer Referring Unavailable Heidi, Jennifer Primary Care Unavailable Madison, Jennifer Referring Unavailable Madison, Jennifer Primary Care Unavailable Rusty Dozier Attending Unavailable Madison, Jennifer Referring Unavailable Mihaela Simpson Attending Unavailable Heidi, Jennifer Primary Care Unavailable Melvin Oshea Attending Unavailable Heidi, Jennifer Primary Care Unavailable Madison, Jennifer Primary Care Unavailable Rusty Dozier Attending Unavailable Rusty Dozier Referring Unavailable Colette Black Attending Unavailable Colette Black Referring Unavailable Madison, Jennifer Primary Care Unavailable Colette Black Attending Unavailable Colette Black Referring Unavailable Heidi, Jennifer Primary Care Unavailable Cristian Joseph Attending Unavailable Flavia Shine Attending Unavailable Madison, Jennifer Referring Unavailable Heidi, Jennifer Primary Care Unavailable Colette Black Attending Unavailable Madison, Jennifer Primary Care Unavailable Madison, Jennifer Referring Unavailable Heidi, Jennifer Referring Unavailable Madison, Jennifer Attending Unavailable Ehidi, Jennifer Primary Care Unavailable Colette Black Attending Unavailable Heidi, Jennifer Referring Unavailable Madison, Jennifer Primary Care Unavailable Madison, Jennifer Referring Unavailable Madison, Jennifer Primary Care Unavailable Cary Jacobsen Attending Unavailable Madison, Jennifer Referring Unavailable Heidi, Jennifer Primary Care Unavailable Rusty Dozier Attending Unavailable Dorie, Melvin Attending Unavailable Madison, Jennifer Primary Care Unavailable Ventura, Hui Attending Unavailable Ventura, Hui Referring Unavailable Madison, Jennifer Primary Care Unavailable Heidi, Jennifer Primary Care Unavailable Baddour, Rusty Attending Unavailable Baddour, Rusty Referring Unavailable Madison, Jennifer Primary Care Unavailable Ungerer, Mihaela Attending Unavailable Ungerer, Mihaela Referring Unavailable RENE LUU Attending Unavailable NO, PHYSICIAN Primary Care Unavailable NO, PHYSICIAN Primary Care Unavailable MITRARAJONATAN KRAMER Attending Unavaila ble NO, PHYSICIAN Primary Care Unavailable URADU, CB TRINIDAD Attending Unavailable URADU, CB KENYONI Referring Unavailable NO, PHYSICIAN Primary Care Unavailable INGEJOSSIE HAMILTON Attending Unavailable [facility] Consulting Unavai lable SUSAN THAKUR Admitting Unavailable NO, PHYSICIAN Primary Care Unavailable JOSSIE ALCAZAR Attending Unavailable SALEM, AHMED Admitting Unavailable [facility] Consulting Unavai lable Allergies Allergy Classification Reported Allergen(s) Allergy Type Date of Onset Reaction(s) Facility Penicillins (antibiotic) (1 source) Penicillins Drug Allergy 5 Unknown, Other (See Comments) [facility] (17 sources) naproxen Propensity to adverse reactions to drug 7 [facility] Work Phone: (20 sources) Penicillins; Translations: [PENICILLINS] Propensity to adverse reactions to drug 5 Unknown, Other (See Comments) [facility] Work Phone: Comment on above: allerigic when a chi ld (1 source) Penicillins Drug allergy (disorder) [facility] (1 source) Penicillins Propensity to adverse reactions to drug 6 [facility] (17 sources) Penicillins Propensity to adverse reactions to drug 5 Unknown, Other (See Comments) [facility] (20 sources) Penicillins Propensity to adverse reactions to drug 5 Unknown, Other (See Comments) [facility] (13 sources) Penicillins Propensity to adverse reactions to drug 5 Unknown, Other (See Comments) [facility] (20 sources) Vancomycin; Translations: [VANCOMYCIN] Drug Allergy 5 Rash [facility] (11 sources) fremanezumab Drug Allergy 5 Diarrhea [facility] (1 source) Penicillins Drug allergy (disorder) 5 [facility] (1 source) Vancomycin Drug Allergy 5 [facility] (1 source) fremanezumab-vfr m Drug allergy (disorder) 5 [facility] Medications Current Medications Medication Drug [...] .MEDSUPPLY February 07, 2023 12:00am Expiration 02/07/2026 Fhqqaeoovez-Xeahlukev-Lzzono er (20 sources) Start: 04-04-2025 Start: 04-04-2025 Fluticasone-Um eclidin-Vilanter (Trelegy Ellipta) 200-62.5-25 mcg blister with device Active 1 NMA INHALATION DAILY 3 April 04, 2025 2:17pm Obstructive sleep apnea syndrome Obstructive sleep apnea (adult) (pediatric) breathing Start: 04-04-2025 Fluticasone-Um eclidin-Vilanter (Trelegy Ellipta) 200-62.5-25 mcg blister with device Active 1 NMA INHALATION DAILY April 04, 2025 2:17pm Start: 11-07-2024 End: 04-04-2025 Swvbgabpwnu-Cqrydnovc-Tcwuuf er (Trelegy Ellipta) 200-62.5-25 mcg blister with device Discontinued 1 NMA INHALATION DAILY 3 November 07, 2024 11:37am April 04, 2025 2:18pm Obstructive sleep apnea syndrome Obstructive sleep apnea (adult) (pediatric) breathing Start: 11-07-2024 End: 04-04-2025 Zjvtgutzjpk-Pzxhynjxc-Aahmcv er (Trelegy Ellipta) 200-62.5-25 mcg blister with device Discontinued 1 NMA INHALATION DAILY November 07, 2024 11:37am April 04, 2025 2:18pm Start: 11-07-2024 Fluticasone-Um eclidin-Vilanter (Trelegy Ellipta) 200-62.5-25 mcg blister with device Active 1 NMA INHALATION DAILY November 07, 2024 11:37am Start: 07-17-2024 End: 11-07-2024 Qvxttnbnnpp-Dzvrcjllf-Rdahjr er (Trelegy Ellipta) 200-62.5-25 mcg blister with device Discontinued 1 NMA INHALATION DAILY 3 July 17, 2024 1:44pm November 07, 2024 11:37am Obstructive sleep apnea syndrome Obstructive sleep apnea (adult) (pediatric) breathing Start: 07-17-2024 End: 11-07-2024 Eovlnlunlsr-Qcucecrvl-Hjgbxm er (Trelegy Ellipta) 200-62.5-25 mcg blister with device Discontinued 1 NMA INHALATION DAILY July 17, 2024 1:44pm November 07, 2024 11:37am Start: 02-12-2024 End: 07-17-2024 Vymtynnxnrm-Fieceedux-Jhmvio er (Trelegy Ellipta) 200-62.5-25 mcg blister with device Discontinued 1 NMA INHALATION DAILY 3 February 12, 2024 8:20am July 17, 2024 1:44pm Obstructive sleep apnea syndrome Obstructive sleep apnea (adult) (pediatric) breathing Start: 02-12-2024 End: 07-17-2024 Wjobgjnimsl-Fkoclgmqh-Npfajk er (Trelegy Ellipta) 200-62.5-25 mcg blister with device Discontinued 1 NMA INHALATION DAILY February 12, 2024 8:20am July 17, 2024 1:44pm Start: 02-12-2024 Fluticasone-Um eclidin-Vilanter (Trelegy Ellipta) 200-62.5-25 mcg blister with device Active 1 INH INHALATION DAILY February 12, 2024 8:20am Start: 02-24-2023 End: 02-12-2024 Cfumwfqgnsh-Ukucibcfl-Mcdort er (Trelegy Ellipta) 200-62.5-25 mcg blister with device Discontinued 1 NMA INHALATION DAILY 3 February 24, 2023 2:38pm February 12, 2024 8:20am Obstructive sleep apnea syndrome Obstructive sleep apnea (adult) (pediatric) Start: 02-24-2023 End: 02-12-2024 Ioonlmyyrfc-Njtknascc-Sapsdg er (Trelegy Ellipta) 200-62.5-25 mcg blister with device Discontinued 1 NMA INHALATION DAILY February 24, 2023 2:38pm February 12, 2024 8:20am Start: 02-24-2023 End: 02-12-2024 Nztvhenzkbf-Wpddhcrvi-Brassv er (Trelegy Ellipta) 200-62.5-25 mcg blister with [...] 24, 2023 2:38pm Start: 02-24-2023 End: 02-24-2023 Tfjekbtayvd-Puuzmlrgd-Vjrkqo er (Trelegy Ellipta) 200-62.5-25 mcg blister with device Discontinued 1 NMA INHALATION DAILY February 24, 2023 12:00am February 24, 2023 2:38pm Start: 02-24-2023 End: 02-24-2023 Bcxdrdidsaw-Pttedxshv-Dhkses er (Trelegy Ellipta) 200-62.5-25 mcg blister with device Discontinued 1 INH INHALATION DAILY February 23, 2023 11:00pm February 24, 2023 1:38pm Start: 02-24-2023 End: 02-24-2023 Uibbjbjxneu-Njyfprvos-Rrpojd er (Trelegy Ellipta) 200-62.5-25 mcg blister with device Discontinued 1 INH INHALATION DAILY February 24, 2023 12:00am February 24, 2023 2:38pm pblxbziwvwt-amdbqwabu-hydleu er (Trelegy Ellipta) 200-62.5-25 mcg DsDv (20 sources) Start: 12-30-2021 pyworntvajl-fzyudewtd-okcpkj er (Trelegy Ellipta) 200-62.5-25 mcg DsDv Inhale [...] with activity . 0 Oxygen - Supplemental ([facility] Informational Use Only) gas (2 sources) Start: 07-18-2025 Oxygen - Suppl emental ([facility] Informational Use Only) gas Active 0 [...] Every 12 hours scheduled, First dose on [place] 02/16/25 at 1230, For 5 days, Indication: [...] sources) Start: 01-06-2025 take 1 capsule by [facility] once daily Completed/Discontinued Medications Medication Drug [...] 06/18/2018 Active take 2 tablets by mo ok[facility] once daily amLODIPine (NORVASC) 5 MG tablet [...] Start: 04-18-2023 take 1 capsule by mo [facility] once daily Start: 03-08-2023 End: 04-18-2023 take [...] CHEW. docusate sodium 50 mg / sennosides, longterm 8.6 mg oral tablet (1 source) Start: [...] at bedtime. Active take 1 capsule by [facility] once daily as needed for sleep [...] NaCl (DILAUDID) 15 mg/30 mL (0.5 mg/mL) GROUP CIO (1 source) Start: 03-30-2022 End: 03-31-2022 Intravenous, [...] Intravenous, Once in imaging, contrast, Starting on [facility] 02/13/25 at 1705, For 1 dose [...] For 2 doses, Anginal pain, may repeat [id number] x2, then notify physician. DO NOT CRUSH [...] PO daily April 04, 2025 12:00am sennosides, longterm 8.6 mg oral tablet (2 sources) Start: [...] kimber garry 1,000 mL sodium zirconium cyclosilicate 35634 mg powder for oral suspension (1 source) [...] kidney disease) stage 3, GFR 30-59 ml/min ([facility])] Onset: 06-17-20 Chronic Chronic kidney disease (2 [...] Coronary arteriosclerosis; Translations: [Atherosclerotic heart disease of [place] coronary artery without angina pectoris] 04-18-2023 Chronic [...] Acute and unspecified renal failure (20 sources) Tfrxa-ko-mwizqdb renal failure; Translations: [Acute kidney failure, unspecified] [...] BY RENE LUU, ON 09/12/2025 04:15:26 Normal [facility] TROPONIN X 2 (NOW AND REPEAT IN 2 HOURS)on 09-12-2025 TROPONIN T DELTA CHANGE INTERPRETATION Probable non-acute cardiac injury or late presentation of acute injury. Normal [facility] Comment on above: Performed By: #### [id number] #### LAB [address] [address] Maurice Coello M.D. [id number] TROPONIN T DELTA DIFFERENCE -1 ng/L Normal < = -/+ 7 change [facility] Comment on above: Performed By: #### 4 [id number] #### LAB [address] [address] Maurice Coello M.D. [id number] TROPONIN T NG/L 17 ng/L Off scale high <=14 [facility] Comment on above: Performed By: #### 4 [id number] #### LAB [address] [address] Maurice Coello M.D. [id number] BASIC METABOLIC PANELon 0 Anion gap [Moles/Vol] 13 mmol/L Normal 10-20 [facility] Comment on above: Order Comment: [facility] has implemented the eGFR calculation approach that does not have a coefficient for race that conforms to the NKF-ASN Task Force Recommendations. Performed By: #### 4 [id number] #### LAB [address] [address] Maurice Coello M.D. [id number] Calcium [Mass/Vol] 9.2 mg/dL Normal 8.4-10.2 [facility] Comment on above: Order Comment: [facility] has implemented the eGFR calculation approach that does not have a coefficient for race that conforms to the NKF-ASN Task Force Recommendations. Performed By: #### 4 [id number] #### LAB [address] [place], [place] [address] Maurice Coello M.D. [id number] Chloride [Moles/Vol] 95 mmol/L Low 98-108 [facility] Comment on above: Order Comment: [facility] has implemented the eGFR calculation approach that does not have a coefficient for race that conforms to the NKF-ASN Task Force Recommendations. Performed By: #### 4 [id number] ####[facility] LAB [address], [place] [address] Maurice Coello M.D. [id number] Creatinine [Mass/Vol] 1.45 mg/dL High 0.60-1.20 [facility] Comment on above: Order Comment: [facility] has implemented the eGFR calculation approach that does not have a coefficient for race that conforms to the NKF-ASN Task Force Recommendations. Performed By: #### 4 [id number] #### LAB [address] [place], [place] [address] Maurice Coello M.D. [id number] EGFR 40 mL/min/1.73 m2 Low >=60 [facility] Comment on above: Order Comment: [facility] has implemented the eGFR calculation approach that does not have a coefficient for race that conforms to the NKF-ASN Task Force Recommendations. Result Comment: Ericka mated GFR was calculated using the 2020 CKD-EPI creatinine equation. Performed By: #### 4 [id number] ####[facility] [address] [place], [place] [address] Maurice Coello M.D. [id number] Glucose [Mass/Vol] 98 mg/dL Normal 65-99 [facility] Comment on above: Order Comment: [facility] has implemented the eGFR calculation approach that does not have a coefficient for race that conforms to the NKF-ASN Task Force Recommendations. Performed By: #### 4 [id number] #### LAB [address] [address] Maurice Coello M.D. [id number] HCO3 (Bld) [Moles/Vol] 29 mmol/L Normal 21-32 [facility] Comment on above: Order Comment: [facility] has implemented the eGFR calculation approach that does not have a coefficient for race that conforms to the NKF-ASN Task Force Recommendations. Performed By: #### 4 [id number] #### LAB [address] [address] Maurice Coello M.D. [id number] Potassium [Moles/Vol] 4.6 mmol/L Normal 3.5-5.1 [facility] Comment on above: Order Comment: [facility] has implemented the eGFR calculation approach that does not have a coefficient for race that conforms to the NKF-ASN Task Force Recommendations. Performed By: #### 4 [id number] #### LAB [address] [address] Maurice Coello M.D. [id number] Sodium [Moles/Vol] 132 mmol/L Low 135-145 [facility] Comment on above: Order Comment: [facility] has implemented the eGFR calculation approach that does not have a coefficient for race that conforms to the NKF-ASN Task Force Recommendations. Performed By: #### 4 [id number] ####[facility] [address] [address] Maurice Coello M.D. [id number] Urea nitrogen [Mass/Vol] 13 mg/dL Normal 8-25 [facility] Comment on above: Order Comment: [facility] has implemented the eGFR calculation approach that does not have a coefficient for race that conforms to the NKF-ASN Task Force Recommendations. Performed By: #### 4 [id number] #### LAB [address] [address] Maurice Coello M.D. [id number] Urea nitrogen/Creatinine [Mass ratio] 9.0 mg/mg Low 10.0-20.0 [facility] Comment on above: Order Comment: [facility] has implemented the eGFR calculation approach that does not have a coefficient for race that conforms to the NKF-ASN Task Force Recommendations. Performed By: #### 4 [id number] #### LAB [address] [place] [address] Maurice Coello M.D. [id number] CBC WITH AUTO DIFFERENTIALon 09-11-2025 AUTO NRBC 0.0 % [facility] Comment on above: Performed By: #### L [id number] #### LAB [address] [place] [address] Maurice Coello M.D. [id number] AUTO NRBC ABS COUNT 0.00 K/mcL Normal 0.00-0.00 [facility] Comment on above: Performed By: #### L [id number] #### LAB [address] [place] [address] Maurice Coello M.D. [id number] BASOPHILS ABSOLUTE COUNT 0.05 K/mcL Normal 0.00-0.30 [facility] Comment on above: Performed By: #### L [id number] #### LAB [address] [place] [address] Maurice Coello M.D. [id number] Basophils/100 WBC (Bld) 0.5 % Normal [facility] Comment on above: Performed By: #### L [id number] #### LAB [address] [place] [address] Maurice Coello M.D. [id number] Eosinophils (Bld) [#/Vol] 0.17 10*3/uL Normal 0.00-0.50 [facility] Comment on above: Performed By: #### L [id number] #### LAB [address] [place] [address] Maurice Coello M.D. [id number] Eosinophils/100 WBC (Bld) 1.8 % [facility] Comment on above: Performed By: #### L [id number] #### LAB [address] [place] [address] Maurice Coello M.D. [id number] Erythrocyte distribution width (RBC) [Ratio] 14.0 % Normal 11.6-14.8 [facility] Comment on above: Performed By: #### L [id number] #### LAB [address] [address] Maurice Coello M.D. [id number] Hematocrit (Bld) [Volume fraction] 32.9 % Low 36.0-46.0 [facility] Comment on above: Performed By: #### L [id number] #### LAB [address] [place] [address] Muarice Coello M.D. [id number] Hemoglobin (Bld) [Mass/Vol] 9.8 g/dL Low 12.0-16.0 [facility] Comment on above: Performed By: #### L [id number] #### LAB [address] [place] [address] Maurice Coello M.D. [id number] IG ABSOLUTE 0.04 K/mcL Normal 0.00-0.30 [facility] Comment on above: Performed By: #### L [id number] #### LAB [address] [place] [address] Maurice Coello M.D. [id number] IG PERCENT 0.40 % Normal [facility] Comment on above: Result Comment: The IG parameter is the percentage of metamyelocytes, myelocytes and promyelocytes. An immature granulocyte count (IG) of 1% or more suggests the possibility of infection, an IG count of 3% is very likely related to an infection. Performed By: #### L [id number] #### LAB [address] [place] [address] Maurice Coello M.D. [id number] Lymphocytes (Bld) [#/Vol] 1.52 10*3/uL Normal 0.90-4.00 [facility] Comment on above: Performed By: #### L [id number] #### LAB [address] [place], [place] [id number] Maurice Coello M.D. [id number] Lymphocytes/100 WBC (Bld) 16.0 % Normal [facility] Comment on above: Performed By: #### L [id number] #### LAB [address] [address] Maurice Coello M.D. [id number] MCH (RBC) [Entitic mass] 26.6 pg Normal 26.0-34.0 [facility] Comment on above: Performed By: #### L [id number] #### LAB [address] [address] Maurice Coello M.D. [id number] MCV (RBC) [Entitic vol] 89.2 fL Normal 80.0-100.0 [facility] Comment on above: Performed By: #### L [id number] #### LAB [address] [address] Maurice Coello M.D. [id number] MEAN CORPUSCULAR HEMOGLOBIN CONC 29.8 g/dL Low 31.0-37.0 [facility] Comment on above: Performed By: #### L [id number] #### LAB [address] [address] Maurice Coello M.D. [id number] Monocytes (Bld) [#/Vol] 0.65 10*3/uL Normal 0.30-0.90 [facility] Comment on above: Performed By: #### L [id number] #### LAB [address] [address] Maurice Coello M.D. [id number] Monocytes/100 WBC (Bld) 6.8 % Normal [facility] Comment on above: Performed By: #### L [id number] #### LAB [address] [address] Maurice Coello M.D. [id number] NEUTROPHILS ABSOLUTE COUNT 7.06 K/mcL High 1.70-7.00 [facility] Comment on above: Performed By: #### L [id number] #### LAB [address] [address] Maurice Coello M.D. [id number] Neutrophils/100 WBC (Bld) 74.5 % Normal [facility] Comment on above: Performed By: #### L [id number] #### LAB [address] [address] Maurice Coello M.D. [id number] Platelet mean volume (Bld) [Entitic vol] 9.6 fL Normal 9.4-12.4 [facility] Comment on above: Performed By: #### L [id number] #### LAB [address] [address] Maurice Coello M.D. [id number] Platelets (Bld) [#/Vol] 230 10*3/uL Normal 150-400 [facility] Comment on above: Performed By: #### L [id number] #### LAB [address] [address] Maurice Coello M.D. [id number] RBC (Bld) [#/Vol] 3.69 10*6/uL Low 4.00-5.20 [facility] Comment on above: Performed By: #### L [id number] #### LAB [address] [address] Maurice Coello M.D. [id number] WBC (Bld) [#/Vol] 9.49 10*3/uL Normal 4.50-11.00 [facility] Comment on above: Performed By: #### L [id number] #### LAB [address] [place] [address] Maurice Coello M.D. [id number] COVID-19/INFLUENZA A,B MARIA DOLORES [place] 09-11-2025 SARS-CoV-2 (COVID-19) Ab IA Ql SARS-COV-2 (SOFIE) Not Detected INFLUENZA A (SOFIE) Not Detected INFLUENZA B (SOFIE) Not Detected Normal Not Detected [facility] Comment on above: Performed By: #### L [id number] #### LAB [address] [place] [address] Maurice Coello M.D. [id number] CPKon 09-11-2025 CPK 251 U/L High 40-170 [facility] Comment on above: Performed By: #### 4 [id number] #### LAB [address] [place], [place] [address] Maurice Coello M.D. [id number] CT PULMONARY ARTERIESon 11-0 CT PULMONARY ARTERIES [...] MonSep 12, 2025 2:03:37 AM EST Normal [facility] Comment on above: Order Comment: Injur y/Trauma [...] D-DIMER QUANTITATIVE 1.31 mcg/mL FEU High 0.27-0.49 [facility] Comment on above: Order Comment: A D-d [...] #### 4 [id number] #### MH LAB [address] [id number] Maurice Coello M.D. [id number] ED Prov Noteon 09-11-2025 ED Prov Note [facility] EMERGENCY DEPARTMENT ATTENDING NOTE: NAME: Radha Shafer CSN: [id number] 65 y.o. PCP: No, Physician History: Chief [...] PROCEDURE; Surgeon: Jada Vargas MD; Location: [facility]; Service: Colorectal CARDIAC CATHETERIZATION N/A 09/26/2022 Procedure: Coronary Angiogram; Surgeon: Tor Long MD; Location: [facility]; Service: Cardiovascular CARDIOVASCULAR STRESS TEST CHOLECYSTECTOMY COLONOSCOPY with biopsies COLONOSCOPY N/A 02/17/2022 Procedure: COLONOSCOPY; Surgeon: Jada Vargas MD; Location: [facility]; Service: Colorectal EGD N/A 08/15/2022 Procedure: ESOPHAGOGASTRODUODENOSC OPY WITH BIOPSY; Surgeon: Tyshawn Santos MD; Location: [facility]; Service: Gastroenterology GALLBLADDER HC LEFT HEART CATH N/A 09/26/2022 Procedure: Left Heart Cath; Surgeon: Tor Long MD; Location: [employer] [facility] [facility]; Service: Cardiovascular HYSTERECTOMY JOINT REPLACEMENT Left knee ORTHOPEDIC SURGERY r wrist surgery, left ankle, right rotator cuff ROTATOR CUFF REPAIR Right SIGMOIDOSCOPY FLEXIBLE N/A 06/23/2022 Procedure: SIGMOIDOSCOPY FLEXIBLE WITH BIOPSY; Surgeon: Tyshawn Santos MD; Location: [facility]; Service: Gastroenterology THYROIDECTOMY N/A 07/15/2015 Procedure: TOTAL THYROIDECTOMY; Surgeon: Lopez Alonso MD; Location: [facility]; Service: US ECHO TRANSTHORACIC FOLLOWUP [...] total) by mouth daily with breakfast . klkhvqanzbo-gkoisllid-o ilanter (Trelegy Ellipta) 200-62.5-25 mcg DsDv Inhale [...] tablet Ronal (more content not included)... Normal [facility] NT PRO BNPon 09-11-2025 Natriuretic peptide B (Bld) [Mass/Vol] 621 pg/mL High 0-300 [facility] Comment on above: Order Comment: Injur y/Trauma or Illness?:Illness/Other How long have you had these symptoms (acute/chronic)?:Acute Reason for exam?:sob. Hx of COPD History of cancer?:unknown Surgeries, chemotherapy, or radiation?:cholecystectomy, hysterectomy, oophrectomy, left knee replacement Type of Exam?:Initial Additional signs and symptoms?:. Performed By: #### 4 [id number] #### LAB [address] [place], [place] [address] Maurice Coello M.D. [id number] POC VENOUS BLOOD GAS ONLY PA NELon 09-11-2025 BASE EXCESS, VENOUS 4.8 mmol/L High -2.0-2.0 [facility] FIO2 32 Normal [facility] HCO3 (Bld) [Moles/Vol] 30.8 mmol/L High 24.0-28.0 [facility] Hematocrit (Bld) [Volume fraction] 30.0 % Low 36.0-46.0 [facility] Hemoglobin (Bld) [Mass/Vol] 10.0 g/dL Low 12.0-16.0 [facility] LITER FLOW 3 Normal [facility] Oxygen saturation in Blood 74.4 % High 40.0-70.0 [facility] PCO2 VENOUS 52.0 mm Hg High 41.0-51.0 [facility] PH VENOUS 7.38 Normal 7.32-7.42 [facility] PO2 VENOUS 45 mm Hg High 25-40 [facility] TROPONIN X 2 (NOW AND REPEAT IN 2 HOURS)on 09-11-2025 BASELINE TROPONIN T NG/L 18 ng/L Off scale high <=14 [facility] Comment on above: Performed By: #### 4 [id number] #### LAB [address] [place], [place] [address] Maurice Coello M.D. [id number] TROPONIN T INTERPRETATION Possible acute cardiac injury. Normal [facility] Comment on above: Performed By: #### 4 7395 #### LAB [address] [place], [place] [address] Maurice Coello M.D. [id number] XR CHEST PA/APon 09-11-2025 XR CHEST PA/AP [...] MonSep 11, 2025 10:01:18 PM EST Normal [facility] Comment on above: Order Comment: Injur y/Trauma or Illness?:Illness/OtherHow long have you had these symptoms (acute/chronic)?:AcuteReason for exam?:sob cp, pt has worsening cough and congesion x2 weeksHistory of cancer?:unknownSurgeries, chemotherapy, or radiation?:cholecystectomy, hysterectomy, oophrectomy, left knee replacementType of Exam?:InitialAdditional signs and symptoms?:pt chronically wears oxygen Neurology Visit Reporton Neurology Visit Report Normal [facility] ED Prov Noteon 08-11-2025 ED Prov Note ED PROVIDER NOTE [facility] EMERGENCY DEPARTMENT NAME: Radha Shafer AGE: 65 y.o. : 1960 VISIT DATE: 08/11/2025 CSN: [id number] PCP: No, Physician Chief Complaint Patient presents [...] PROCEDURE; Surgeon: Jada Vargas MD; Location: [facility]; Service: Colorectal CARDIAC CATHETERIZATION N/A 09/26/2022 Procedure: Coronary Angiogram; Surgeon: Tor Long MD; Location: [employer] [facility] [facility]; Service: Cardiovascular CARDIOVASCULAR STRESS TEST CHOLECYSTECTOMY COLONOSCOPY with biopsies COLONOSCOPY N/A 02/17/2022 Procedure: COLONOSCOPY; Surgeon: Jada Vargas MD; Location: [facility]; Service: Colorectal EGD N/A 08/15/2022 Procedure: ESOPHAGOGASTRODUODENOSC OPY WITH BIOPSY; Surgeon: Tyshawn Santos MD; Location: [facility]; Service: Gastroenterology GALLBLADDER HC LEFT HEART CATH N/A 09/26/2022 Procedure: Left Heart Cath; Surgeon: Tor Long MD; Location: [employer] [facility] [facility]; Service: Cardiovascular HYSTERECTOMY JOINT REPLACEMENT Left knee ORTHOPEDIC SURGERY r wrist surgery, left ankle, right rotator cuff ROTATOR CUFF REPAIR Right SIGMOIDOSCOPY FLEXIBLE N/A 06/23/2022 Procedure: SIGMOIDOSCOPY FLEXIBLE WITH BIOPSY; Surgeon: Tyshawn Santos MD; Location: [facility]; Service: Gastroenterology THYROIDECTOMY N/A 07/15/2015 Procedure: TOTAL THYROIDECTOMY; Surgeon: Lopez Alonso MD; Location: [facility]; Service: US ECHO TRANSTHORACIC FOLLOWUP [...] total) by mouth daily with breakfast . tdoofhdddab-gstdfdbzk-s ilanter (Trelegy Ellipta) 200-62.5-25 mcg DsDv Inhale 1 (one) Inhalation daily . furosemide (LASIX) 20 MG tablet Take 1 (one) tablet (20 mg total) by mouth daily . (Patient not taking: Reported on 04/30/2025 .) levothyroxine (SYNTHROID, LEVOTHROID) 175 MCG (more content not included)... [facility] [place] XR FOOT RIGHT 3+ VIEWS (LUKE HENDERSON)on [...] on MonAug 11, 2025 5:45:53 PM EDT [facility] Comment on above: Order Comment: Injur y/Trauma [...] C10, Decanoylcarnitine 0.26 umol/L Normal <1.05 N [facility] Comment on above: Performed By: #### S PACP #### [place] [address] C10_1, Decenoylcarnitine 0.13 umol/L Normal <0.53 [facility] Comment on above: Performed By: #### S PACP #### [place] [address] C10_2, Decadienoylcarnitine <0.03 Normal <0.30 [facility] Comment on above: Performed By: #### S PACP #### [place] [address] C12, Dodecanoylcarnitine 0.24 umol/L Normal <0.34 [facility] Comment on above: Performed By: #### S PACP #### [place] [address] C12-OH, 3-LV-yqpzpwtcbcfbeo <0.03 Normal <0.09 [facility] Comment on above: Performed By: #### S PACP #### [place] [address] C12_1, Dodecenoylcarnitine 0.13 umol/L Normal <0.35 [facility] Comment on above: Performed By: #### S PACP #### [place] [address] C14, Tetradecanoylcarnitine 0.23 umol/L High <0.17 [facility] Comment on above: Performed By: #### S PACP #### [place] [address] C14-OH, 8-SK-tvsemlraubfzwhurt <0.02 Normal <0.08 [facility] Comment on above: Performed By: #### S PACP #### [place] [address] C14_1, Tetradecenoylcarn 0.13 umol/L Normal <0.32 [facility] Comment on above: Performed By: #### S PACP #### [place] [address] E29_2-CJ, 1-RU-Tzqqsucfbbnrvhl 0.05 umol/L Normal <0.13 [facility] Comment on above: Performed By: #### S PACP #### Performed at [facility], [address], [place] [address] C14_2, Tetradecadienoylcarn 0.04 umol/L Normal <0.22 [facility] Comment on above: Performed By: #### S PACP #### [place] [address] C16, Hexadecanoylcarnitine 0.82 umol/L High <0.29 [facility] Comment on above: Performed By: #### S PACP #### [place] [address] C16-OH, 5-AD-xpedcngbqkgkjxeh <0.04 Normal <0.06 [facility] Comment on above: Performed By: #### S PACP #### [place] [address] C16_1, Hexadecenoylcarnitine 0.25 umol/L High <0.10 [facility] Comment on above: Performed By: #### S PACP #### [place] [address] L49_7-SN, 6-AB-nvbiplhylskuoud 0.04 umol/L Normal <0.07 [facility] Comment on above: Performed By: #### S PACP #### [place] [address] C18, Stearoylcarnitine 0.22 umol/L High <0.17 N [facility] Comment on above: Performed By: #### S PACP #### [place] [address] C18-OH, 9-OI-Gafsgxqawspdgwkml <0.05 Normal <0.07 [facility] Comment on above: Performed By: #### S PACP #### [place] [address] C18_1, Oleylcarnitine 0.99 umol/L High <0.43 [facility] Comment on above: Performed By: #### S PACP #### [place] [address] M21_4-VM, 9-MW-xnzraaiyk <0.05 Normal <0.10 [facility] Comment on above: Performed By: #### S PACP #### [place] [address] C18_2, Linoleylcarnitine 0.29 umol/L High <0.26 [facility] Comment on above: Performed By: #### S PACP #### [place] [address] I07_2-FS, 7-YJ-kssziezohobx <0.05 Normal <0.11 [facility] Comment on above: Performed By: #### S PACP #### [place] [address] C2, Acetylcarnitine 11.09 umol/L Normal 2.84-25.30 [facility] Comment on above: Performed By: #### S PACP #### [place] [address] C3, Propionylcarnitine 0.56 umol/L Normal <1.00 N [facility] Comment on above: Performed By: #### S PACP #### [place] [address] C3-DC, Malonylcarnitine <0.06 Normal <0.14 [facility] Comment on above: Performed By: #### S PACP #### [place] [address] C4, Iso-/Butyrylcarnitine 0.60 umol/L Normal <1.01 [facility] Comment on above: Performed By: #### S PACP #### [place] [address] C4-DC, Methylmalonyl-/succinyl 0.06 umol/L Normal <0.25 [facility] Comment on above: Performed By: #### S PACP #### [place] [address] C4-OH, 3-OH-iso/butyrylcarn <0.03 Normal <0.40 [facility] Comment on above: Performed By: #### S PACP #### [place] [address] C5, Isovaleryl-/2-Methylbut yry 0.10 umol/L Normal <0.65 [facility] Comment on above: Performed By: #### S PACP #### [place] [address] C5-DC, Glutarylcarnitine 0.05 umol/L Normal <0.18 [facility] Comment on above: Performed By: #### S PACP #### [place] [address] C5-OH, 7-CE-lmsrlaokhvryzf <0.04 Normal <0.20 [facility] Comment on above: Performed By: #### S PACP #### [place] [address] C5_1, Tiglylcarnitine <0.05 Normal <0.15 [facility] Comment on above: Performed By: #### S PACP #### [place] [address] C6, Hexanoylcarnitine 0.06 umol/L Normal <0.42 Na [facility] Comment on above: Performed By: #### S PACP #### [place] [address] C6-DC, Adipylcarnitine 0.09 umol/L Normal <0.13 N [facility] Comment on above: Performed By: #### S PACP #### [place] [address] C6-OH, 6-ID-vostetxfjygrgekvu <0.02 Normal <0.20 [facility] Comment on above: Performed By: #### S PACP #### [place] [address] C8, Octanoylcarnitine 0.14 umol/L Normal <1.00 [facility] Comment on above: Performed By: #### S PACP #### [place] [address] C8-DC, Suberylcarnitine <0.04 Normal <0.10 N [facility] Comment on above: Performed By: #### S PACP #### [place] [address] C8_1, Octenoylcarnitine 0.27 umol/L Normal <0.97 [facility] Comment on above: Performed By: #### S PACP #### [place] [address] Free Carnitine 46.60 umol/L Normal 22-52 [facility] Comment on above: Performed By: #### S PACP #### [place] [address] Interpretation Normal [facility] Comment on above: Result Comment: Inte rpretation: Clinical correlation suggested. 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 Performed By: #### S PACP #### [place] [address] Total Carnitine 60.28 umol/L Normal 27-66 [facility] Comment on above: Performed By: #### S PACP #### [place] [address] Acylcarnitines, Quantitative , Plasma & Serumon 07-23-2025 Note: This test was develo ped and its performance characteristics determined by [facility]. It has not been cleared or approved by the FDA. The laboratory is regulated under CLIA as qualified to perform high complexity testing. This test is used for clinical purposes. It should not be regarded as investigational or for research. Normal [facility] Comment on above: Performed By: #### S PACP #### [place] [address] CBC Auto Diff Reflex Manualo n 07-23-2025 Absolute Basophils 0.1 10*3/uL High <0.1 [facility] Absolute Eosinophils 0.2 10*3/uL Normal 0.0-0.4 [facility] Absolute Immature Granulocytes 0.0 10*3/uL Normal <0.1 [facility] Absolute Lymphocytes 1.5 10*3/uL Normal 1.2-3.5 [facility] Absolute Monocytes 0.6 10*3/uL Normal 0.2-0.9 [facility] Absolute Neutrophils 7.8 10*3/uL High 1.6-7.3 [facility] Automated Absolute Neutrophil 7.8 10*3/uL High 1.6-7.3 [facility] Comment on above: Result Comment: Auto mated Absolute Neutrophil Count (ANC) is directly measured using a hematology instrument. ANC determined from manual differential cell count may differ. Basophil 0.9 % Normal 0.2-1.6 [facility] Differential Type Automated Normal [facility] Eosinophil 1.8 % Normal 0.2-8.1 [facility] Immature Granulocytes 0.3 % Normal <0.7 [facility] Lymphocyte 14.2 % Normal 9.0-51.0 [facility] MCH 26.9 pg Normal 26.0-34.0 [facility] MCHC 31.3 % Normal 31.0-37.0 [facility] MCV 85.8 fL Normal 80.0-100.0 [facility] Monocyte 6.2 % Normal 4.0-13.0 [facility] MPV 10.8 fL Normal 8.8-13.0 [facility] Neutrophil 76.6 % Normal 40.8-78.2 [facility] Platelet Count 288 10*3/uL Normal 142-508 [facility] RBC 4.1 10*6/uL Normal 4.0-5.2 [facility] RDW 13.2 % Normal 10-14.1 [facility] WBC 10.2 10*3/uL Normal 4.5-11.0 [facility] CBC W Differential panel, me thod unspecified (Bld)on 07-23-2025 Basophils (Bld) [#/Vol] 0.1 10*3/uL High NINF - 0.1 10*3/uL [facility] Basophils/100 WBC (Bld) 0.9 % 0.2 - 1.6 % [facility] Differential cell count method Nom (Bld) Automated [facility] Eosinophils (Bld) [#/Vol] 0.2 10*3/uL 0.0 - 0.4 10*3/uL [facility] Eosinophils/100 WBC (Bld) 1.8 % 0.2 - 8.1 % [facility] Erythrocyte distribution width (RBC) [Ratio] 13.2 % 10 - 14.1 % [facility] Hematocrit (Bld) [Volume fraction] 35.1 % Low 36.0 - 46.0 % [facility] Hemoglobin (Bld) [Mass/Vol] 11.0 g/dL Low 12.0 - 16.0 g/dL [facility] Immature granulocytes (Bld) [#/Vol] 0.0 10*3/uL NINF - 0.1 10*3/uL [facility] Immature granulocytes/100 WBC (Bld) 0.3 % NINF - 0.7 % [facility] Interpretation and review of laboratory results Abnormal [facility] Lymphocytes (Bld) [#/Vol] 1.5 10*3/uL 1.2 - 3.5 10*3/uL [facility] Lymphocytes/100 WBC (Bld) 14.2 % 9.0 - 51.0 % [facility] MCH (RBC) [Entitic mass] 26.9 pg 26.0 - 34.0 pg [facility] MCHC (RBC) [Mass/Vol] 31.3 % 31.0 - 37.0 % [facility] MCV (RBC) [Entitic vol] 85.8 fL 80.0 - 100.0 fL [facility] Monocytes (Bld) [#/Vol] 0.6 10*3/uL 0.2 - 0.9 10*3/uL [facility] Monocytes/100 WBC (Bld) 6.2 % 4.0 - 13.0 % [facility] Neutrophils (Bld) [#/Vol] 7.8 10*3/uL High 1.6 - 7.3 10*3/uL [facility] Comment on above: Automated Absolute N eutrophil Count (ANC) is directly measured using a hematology instrument. ANC determined from manual differential cell count may differ. Neutrophils/100 WBC (Bld) 76.6 % 40.8 - 78.2 % [facility] Platelet mean volume (Bld) [Entitic vol] 10.8 fL 8.8 - 13.0 fL [facility] Platelets (Bld) [#/Vol] 288 10*3/uL 142 - 508 10*3/uL [facility] RBC (Bld) [#/Vol] 4.1 10*6/uL 4.0 - 5.2 10*6/uL [facility] WBC (Bld) [#/Vol] 10.2 10*3/uL 4.5 - 11.0 10*3/uL [facility] CKon 07-23-2025 CK [Catalytic activity/Vol] 73 U/L Normal <289 [facility] Comprehensive Metabolic Pane jett 07-23-2025 Albumin [Mass/Vol] 4.2 g/dL Normal 3.4-5.2 [facility] ALP [Catalytic activity/Vol] 87 U/L Normal 50-136 [facility] ALT [Catalytic activity/Vol] 18 U/L Normal <36 [facility] AST [Catalytic activity/Vol] 28 U/L Normal 15-50 [facility] Bilirubin [Mass/Vol] 0.2 mg/dL Normal 0.1-1.0 [facility] Calcium [Mass/Vol] 8.7 mg/dL Normal 8-10.5 [facility] Chloride [Moles/Vol] 93 mmol/L Low 98-110 [facility] CO2 [Moles/Vol] 30 mmol/L Normal 21-30 [facility] Creatinine [Mass/Vol] 1.72 mg/dL High 0.5-1 [facility] Glucose [Mass/Vol] 95 mg/dL Normal 60-115 [facility] Potassium [Moles/Vol] 5.2 mmol/L High 3.6-4.9 [facility] Protein [Mass/Vol] 7.9 g/dL Normal 6.5-8.6 [facility] Sodium [Moles/Vol] 131 mmol/L Low 135-145 [facility] Urea nitrogen [Mass/Vol] 28 mg/dL High 5-18 [facility] Comprehensive metabolic 2000 panelon 07-23-2025 Interpretation and review of laboratory results Abnormal [facility] No Panel Informationon 07-23 [facility] Absolute lymphocyte countOrd ered By: Arnel Cano on 07-20-2025 Lymphocytes Auto (Unsp spec) [#/Vol] 1.46 10*3/uL 0.83-4.51 [facility] Absolute neutrophil countOrd ered By: Arnel Cano on 07-20-2025 Neutrophils (Bld) [#/Vol] 4.7 10*3/uL 2.0-7.7 [facility] Anion gap in Serum or Plasma Ordered By: Arnel Cano on 07-20-2025 Anion gap [Moles/Vol] 10 mmol/L 5-15 [facility] Automated lymphocyte count a s percentage of total leukocytesOrdered By: Arnel Cano on 07-20-2025 Lymphocytes/100 WBC Auto (Unsp spec) 21.1 % -41 [facility] BUN/creatinine ratioOrdered By: Arnel Cano on 07-20-2025 Urea nitrogen/Creatinine [Mass ratio] 8.2 mg/mg Low 10-20 [facility] Basic Metabolic Profile (BMP )on 07-20-2025 BUN/CRE 8.2 RATIO Low 10-20 [facility] Comment on above: Performed By: #### L 500.2500, L100.0100 ####[facility] [address] [place], [address] Calcium [Mass/Vol] 9.0 mg/dL Normal 7.6-11.0 [facility] Comment on above: Performed By: #### L 500.2500, L100.0100 ####[facility] [address] [place], [address] Chloride [Moles/Vol] 94 mmol/L Low 98-108 [facility] Comment on above: Performed By: #### L 500.2500, L100.0100 ####[facility] [address] [place], [address] CO2 [Moles/Vol] 26.4 mmol/L Normal 21.0-32.0 [facility] Comment on above: Performed By: #### L 500.2500, L100.0100 ####[facility] [address] [place], [address] Creatinine [Mass/Vol] 1.47 mg/dL High 0.70-1.20 [facility] Comment on above: Performed By: #### L 500.2500, L100.0100 ####[facility] [address] [place], [address] ECRCL 43.55 ml/min Low 50-250 [facility] Comment on above: Performed By: #### L 500.2500, L100.0100 ####[facility] [address] [place], [address] GAP 10 Normal 5-15 [facility] Comment on above: Performed By: #### L 500.2500, L100.0100 ####[facility] [address] [place], [address] GFR/1.73 sq M.predicted among non-blacks MDRD (S/P/Bld) [Vol rate/Area] 39 mL/min/{1.73_m2} Low >60 [facility] Comment on above: Result Comment: mL/m in/1.73m2 CKD-EPI Creatinine Equation (2020) Performed By: #### L 500.2500, L100.0100 ####[facility] [address] [place], [address] Glucose [Mass/Vol] 97 mg/dL Normal 70-99 [facility] Comment on above: Performed By: #### L 500.2500, L100.0100 ####[facility] [address] [place], [address] Potassium [Moles/Vol] 4.6 mmol/L Normal 3.3-5.1 [facility] Comment on above: Performed By: #### L 500.2500, L100.0100 ####[facility] [address] [place], [address] Sodium [Moles/Vol] 130 mmol/L Low 133-145 [facility] Comment on above: Performed By: #### L 500.2500, L100.0100 ####[facility] [address] [place], [address] Urea nitrogen [Mass/Vol] 12 mg/dL Normal 4-19 [facility] Comment on above: Performed By: #### L 500.2499, L100.0100 ####[facility] [address] [place], [address] Basophil percentageOrdered B y: Arnel Cano on 07-20-2025 Basophils/100 WBC (Bld) 0.7 % 0-1 [facility] CBC W/Diff, Automatedon 07-07 Absolute Lymph 1.46 X10 3/uL Normal 0.83-4.51 [facility] Comment on above: Performed By: #### L 500.2499, L100.0100 ####[facility] [address] [place], [address] Absolute Neut 4.7 X10 3/uL Normal 2.0-7.7 [facility] Comment on above: Performed By: #### L 500.2500, L100.0100 ####[facility] [address] [place], [address] Basophils/100 WBC (Bld) 0.7 % Normal 0-1 [facility] Comment on above: Performed By: #### L 500.2500, L100.0100 ####[facility] [address] [place], [address] Eosinophils/100 WBC (Bld) 2.7 % Normal 0-5 [facility] Comment on above: Performed By: #### L 500.2500, L100.0100 ####[facility] [address] [place], [address] Erythrocyte distribution width (RBC) [Ratio] 13.2 % Normal 11.6-14.6 [facility] Comment on above: Performed By: #### L 500.2500, L100.0100 ####[facility] [address] [place], [address] Hematocrit (Bld) [Volume fraction] 32.6 % Low 37-47 [facility] Comment on above: Performed By: #### L 500.2500, L100.0100 ####[facility] [address] [place], [address] Hemoglobin (Bld) [Mass/Vol] 10.4 g/dL Low 12.0-15.0 [facility] Comment on above: Performed By: #### L 500.2500, L100.0100 ####[facility] [address] [place], [address] IG% 0.400 Normal 0.0-0.9 [facility] Comment on above: Result Comment: IG% - Immature Granulocytes (promyelocytes, myelocytes andmetamyelocytes) > 1% indicates that a LEFT SHIFT is Present. Performed By: #### L 500.2500, L100.0100 ####[facility] [address] [place], [address] Lymphocytes/100 WBC (Bld) 21.1 % Normal 19-41 [facility] Comment on above: Performed By: #### L 500.2500, L100.0100 ####[facility] [address] [place], [address] MCH (RBC) [Entitic mass] 26.9 pg Low 27.0-32.0 [facility] Comment on above: Performed By: #### L 500.2500, L100.0100 ####[facility] [address] [place], [address] MCHC (RBC) [Mass/Vol] 31.9 g/dL Low 32-36 [facility] Comment on above: Performed By: #### L 500.2500, L100.0100 ####[facility] [address] [place], [address] MCV (RBC) [Entitic vol] 84.2 fL Normal 81-99 [facility] Comment on above: Performed By: #### L 500.2500, L100.0100 ####[facility] [address] [place], [address] Monocytes/100 WBC (Bld) 7.2 % Normal 0-10 [facility] Comment on above: Performed By: #### L 500.2500, L100.0100 ####[facility] [address] [place], [address] Neutrophils/100 WBC (Bld) 67.9 % Normal 47-70 [facility] Comment on above: Performed By: #### L 500.2500, L100.0100 ####[facility] [address] [place], [address] Nucleated RBC (Bld) [#/Vol] 0 10*3/uL Normal 0-5 [facility] Comment on above: Performed By: #### L 500.2500, L100.0100 ####[facility] [address] [place], [address] Platelet mean volume (Bld) [Entitic vol] 10.1 fL Normal 6.2-12.0 [facility] Comment on above: Performed By: #### L 500.2500, L100.0100 ####[facility] [address] [place], [address] Platelets (Bld) [#/Vol] 238 10*3/uL Normal 150-450 [facility] Comment on above: Performed By: #### L 500.2500, L100.0100 ####[facility] [address] [place], [address] RBC (Bld) [#/Vol] 3.87 10*6/uL Low 4.2-5.4 [facility] Comment on above: Performed By: #### L 500.2500, L100.0100 ####[facility] [address] [place], [address] RDW SD 40.2 fl Normal 35.1-43.9 [facility] Comment on above: Performed By: #### L 500.2500, L100.0100 ####[facility] [address] [place], [address] WBC (Bld) [#/Vol] 6.9 10*3/uL Normal 4.4-11.0 [facility] Comment on above: Performed By: #### L 500.2500, L100.0100 ####[facility] [address] [place], [address] Carbon dioxide, total [Moles /volume] in Central venous bloodOrdered By: Arnel Cano on 07-20-2025 CO2 [Moles/Vol] 26.4 mmol/L 21.0-32.0 [facility] Chloride assayOrdered By: Mally Cano on 07-20-2025 Chloride [Moles/Vol] 94 mmol/L Low 98-108 [facility] Discharge Instructionon 07-07 Discharge Instruction Normal [facility] Eosinophil percentageOrdered By: Arnel Cano on 07-20-2025 Eosinophils/100 WBC (Bld) 2.7 % 0-5 [facility] Erythrocyte distribution wid th ratioOrdered By: Arnel Cano on 07-20-2025 Erythrocyte distribution width (RBC) [Ratio] 13.2 % 11.6-14.6 [facility] Erythrocyte distribution wid th standard deviationOrdered By: Arnel Cano on 07-20-2025 Erythrocyte distribution width (RBC) [Ratio] 40.2 fl 35.1-43.9 [facility] Glomerular filtration rate ( GFR) estimation/1.73 sq m using serum, plasma, or whole bOrdered By: Arnel Cano on 07-20-2025 GFR/1.73 sq M.predicted among non-blacks MDRD (S/P/Bld) [Vol rate/Area] 39 mL/min/{1.73_m2} Low >60 [facility] Comment on above: mL/min/1.73m2 CKD-EP I Creatinine Equation (2020) Hematocrit Auto (Bld) [Volum e fraction]Ordered By: Arnel Cano on 07-20-2025 Hematocrit (Bld) [Volume fraction] 32.6 % Low 37-47 [facility] Hemoglobin measurementOrdere d By: Arnel Cano on 07-20-2025 Hemoglobin (Bld) [Mass/Vol] 10.4 g/dL Low 12.0-15.0 [facility] Immature granulocytes/100 WB C Auto (Bld)Ordered By: Anrel Cano on 07-20-2025 Immature granulocytes/100 WBC (Bld) 0.400 % 0.0-0.9 [facility] Comment on above: IG% - Immature Granu locytes (promyelocytes, myelocytes and metamyelocytes) > 1% indicates that a LEFT SHIFT is Present. MCV (mean corpuscular volume ) determinationOrdered By: Arnel Cano on 07-20-2025 MCV (RBC) [Entitic vol] 84.2 fL 81-99 [facility] Mean corpuscular hemoglobin (MCH) determinationOrdered By: Arnel Cano 07-20-2025 MCH (RBC) [Entitic mass] 26.9 pg Low 27.0-32.0 [facility] Mean corpuscular hemoglobin concentration (MCHC) determinationOrdered By: Arnel Cano on 07-20-2025 MCHC (RBC) [Mass/Vol] 31.9 g/dL Low 32-36 [facility] Mean platelet volume determi nationOrdered By: Arnel Cano on 07-20-2025 Platelet mean volume (Bld) [Entitic vol] 10.1 fL 6.2-12.0 [facility] Monocyte percentageOrdered B y: Arnel Cano on 07-20-2025 Monocytes/100 WBC (Bld) 7.2 % 0-10 [facility] Neutrophil percentageOrdered By: Arnel Cano on 07-20-2025 Neutrophils/100 WBC (Bld) 67.9 % 47-70 [facility] Nucleated red blood cell per centageOrdered By: Arnel Cano on 07-20-2025 Nucleated RBC/100 WBC (Bld) [Ratio] 0 % 0-5 [facility] Platelet countOrdered By: Mally Cano on 07-20-2025 Platelets (Bld) [#/Vol] 238 10*3/uL 150-450 [facility] Potassium measurement (mass/ volume)Ordered By: Arnel Cano on 07-20-2025 Potassium (Unsp spec) [Mass/Vol] 4.6 mmol/L 3.3-5.1 [facility] RBC Auto (Bld) [#/Vol]Ordere d By: Arnel Cano on 07-20-2025 RBC (Bld) [#/Vol] 3.87 10*6/uL Low 4.2-5.4 [facility] Serum creatinine measurement (mass/volume)Ordered By: Arnel Cano on 07-20-2025 Creatinine [Mass/Vol] 1.47 mg/dL High 0.70-1.20 [facility] Serum glucose measurement (m ass/volume)Ordered By: Arnel Cano on 07-20-2025 Glucose [Mass/Vol] 97 mg/dL 70-99 [facility] Serum or plasma calcium marivel urement (mass/volume)Ordered By: Arnel Cano on 07-20-2025 Calcium [Mass/Vol] 9.0 mg/dL 7.6-11.0 [facility] Serum or plasma urea nitroge n measurement (mass/volume)Ordered By: Arnel Cano on 07-20-2025 Urea nitrogen [Mass/Vol] 12 mg/dL 4-19 [facility] Sodium levelOrdered By: Osvaldo Cano on 07-20-2025 Sodium [Moles/Vol] 130 mmol/L Low 133-145 [facility] White blood cell (WBC) count Ordered By: Arnel Cano on 07-20-2025 WBC (Bld) [#/Vol] 6.9 10*3/uL 4.4-11.0 [facility] 12 Lead EKGon 07-19-2025 12 Lead EKG Normal [facility] Basic Metabolic Profile (BMP )on 07-19-2025 BUN/CRE 9.2 RATIO Low 10-20 [facility] Comment on above: Performed By: #### L 501.2300, L500.2500 ####[facility] [address] [place], [address] Calcium [Mass/Vol] 8.6 mg/dL Normal 7.6-11.0 [facility] Comment on above: Performed By: #### L 501.2300, L500.2500 ####[facility] [address] [place], [address] Chloride [Moles/Vol] 97 mmol/L Low 98-108 [facility] Comment on above: Performed By: #### L 501.2300, L500.2500 ####[facility] [address] [place], [address] CO2 [Moles/Vol] 25.5 mmol/L Normal 21.0-32.0 [facility] Comment on above: Performed By: #### L 501.2300, L500.2500 ####[facility] [address] [place], [address] Creatinine [Mass/Vol] 1.37 mg/dL High 0.70-1.20 [facility] Comment on above: Performed By: #### L 501.2300, L500.2500 ####[facility] [address] [place], [address] ECRCL 47.08 ml/min Low 50-250 [facility] Comment on above: Performed By: #### L 501.2300, L500.2500 ####[facility] [address] [place], [address] GAP 9 Normal 5-15 [facility] Comment on above: Performed By: #### L 501.2300, L500.2500 ####[facility] [address] [place], [address] GFR/1.73 sq M.predicted among non-blacks MDRD (S/P/Bld) [Vol rate/Area] 42 mL/min/{1.73_m2} Low >60 [facility] Comment on above: Result Comment: mL/m in/1.73m2 CKD-EPI Creatinine Equation (2020) Performed By: #### L 501.2300, L500.2500 ####[facility] [address] [place], [address] Glucose [Mass/Vol] 128 mg/dL High 70-99 [facility] Comment on above: Performed By: #### L 501.2300, L500.2500 ####[facility] [address] [place], [address] Potassium [Moles/Vol] 4.6 mmol/L Normal 3.3-5.1 [facility] Comment on above: Performed By: #### L 501.2300, L500.2500 ####[facility] [address] [place], [address] Sodium [Moles/Vol] 131 mmol/L Low 133-145 [facility] Comment on above: Performed By: #### L 501.2300, L500.2500 ####[facility] [address] [place], [address] Urea nitrogen [Mass/Vol] 13 mg/dL Normal 4-19 [facility] Comment on above: Performed By: #### L 501.2300, L500.2500 ####[facility] [address] [place], [address] CBC W/Diff, Automatedon - 3-2024 Absolute Lymph 1.25 X10 3/uL Normal 0.83-4.51 [facility] Comment on above: Performed By: #### L 100.0100 ####[facility] [address] [place], [address] Absolute Neut 3.2 X10 3/uL Normal 2.0-7.7 [facility] Comment on above: Performed By: #### L 100.0100 ####[facility] [address] [place], [address] Basophils/100 WBC (Bld) 1.0 % Normal 0-1 [facility] Comment on above: Performed By: #### L 100.0100 ####[facility] [address] [place], [address] Eosinophils/100 WBC (Bld) 2.6 % Normal 0-5 [facility] Comment on above: Performed By: #### L 100.0100 ####[facility] [address] [place], [address] Erythrocyte distribution width (RBC) [Ratio] 12.8 % Normal 11.6-14.6 [facility] Comment on above: Performed By: #### L 100.0100 ####[facility] [address] [place], [address] Hematocrit (Bld) [Volume fraction] 32.2 % Low 37-47 [facility] Comment on above: Performed By: #### L 100.0100 ####[facility] [address] [place], [address] Hemoglobin (Bld) [Mass/Vol] 10.1 g/dL Low 12.0-15.0 [facility] Comment on above: Performed By: #### L 100.0100 ####[facility] [address] [place], [address] IG% 0.200 Normal 0.0-0.9 [facility] Comment on above: Result Comment: IG% - Immature Granulocytes (promyelocytes, myelocytes andmetamyelocytes) > 1% indicates that a LEFT SHIFT is Present. Performed By: #### L 100.0100 ####[facility] [address] [place], [address] Lymphocytes/100 WBC (Bld) 24.7 % Normal 19-41 [facility] Comment on above: Performed By: #### L 100.0100 ####[facility] [address] [place], [address] MCH (RBC) [Entitic mass] 26.7 pg Low 27.0-32.0 [facility] Comment on above: Performed By: #### L 100.0100 ####[facility] [address] [place], [address] MCHC (RBC) [Mass/Vol] 31.4 g/dL Low 32-36 [facility] Comment on above: Performed By: #### L 100.0100 ####[facility] [address] [place], [address] MCV (RBC) [Entitic vol] 85.2 fL Normal 81-99 [facility] Comment on above: Performed By: #### L 100.0100 ####[facility] [address] [place], [address] Monocytes/100 WBC (Bld) 8.3 % Normal 0-10 [facility] Comment on above: Performed By: #### L 100.0100 ####[facility] [address] [place], [address] Neutrophils/100 WBC (Bld) 63.2 % Normal 47-70 [facility] Comment on above: Performed By: #### L 100.0100 ####[facility] [address] [place], [address] Nucleated RBC (Bld) [#/Vol] 0 10*3/uL Normal 0-5 [facility] Comment on above: Performed By: #### L 100.0100 ####[facility] [address] [place], [address] Platelet mean volume (Bld) [Entitic vol] 10.0 fL Normal 6.2-12.0 [facility] Comment on above: Performed By: #### L 100.0100 ####[facility] [address] [place], [address] Platelets (Bld) [#/Vol] 191 10*3/uL Normal 150-450 [facility] Comment on above: Performed By: #### L 100.0100 ####[facility] [address] [place], [address] RBC (Bld) [#/Vol] 3.78 10*6/uL Low 4.2-5.4 [facility] Comment on above: Performed By: #### L 100.0100 ####[facility] [address] [place], [address] RDW SD 39.4 fl Normal 35.1-43.9 [facility] Comment on above: Performed By: #### L 100.0100 ####[facility] [address] [place], [address] WBC (Bld) [#/Vol] 5.1 10*3/uL Normal 4.4-11.0 [facility] Comment on above: Performed By: #### L 100.0100 ####[facility] [address] [place], [address] CPK Total, Creatine Kinaseon 07-19-2025 CPK TOTAL 128 U/L Normal - [facility] Comment on above: Performed By: #### L 501.3620 ####[facility] [address] [place], [address] Phosphoruson 07-19-2025 Phosphate [Mass/Vol] 3.6 mg/dL Normal 2.7-4.5 [facility] Comment on above: Performed By: #### L 501.2300, L500.2500 ####[facility] [address] [place], [address] Serum or plasma creatine kin ase activityOrdered By: Arnel Cano on 07-19-2025 CK [Catalytic activity/Vol] 128 U/L - [facility] Basic Metabolic Profile (BMP )on 07-18-2025 BUN/CRE 11.7 RATIO Normal 10-20 [facility] Comment on above: Performed By: #### L 500.2500, L501.5200 ####[facility] [address] [place], [address] Calcium [Mass/Vol] 8.8 mg/dL Normal 7.6-11.0 [facility] Comment on above: Performed By: #### L 500.2500, L501.5200 ####[facility] [address] [place], [address] Chloride [Moles/Vol] 94 mmol/L Low 98-108 [facility] Comment on above: Performed By: #### L 500.2500, L501.5200 ####[facility] [address] [place], [address] CO2 [Moles/Vol] 27.6 mmol/L Normal 21.0-32.0 [facility] Comment on above: Performed By: #### L 500.2500, L501.5200 ####[facility] [address] [place], [address] Creatinine [Mass/Vol] 1.70 mg/dL High 0.70-1.20 [facility] Comment on above: Performed By: #### L 500.2500, L501.5200 ####[facility] [address] [place], [address] ECRCL 37.57 ml/min Low 50-250 [facility] Comment on above: Performed By: #### L 500.2500, L501.5200 ####[facility] [address] [place], [address] GAP 9 Normal 5-15 [facility] Comment on above: Performed By: #### L 500.2500, L501.5200 ####[facility] [address] [place], [address] GFR/1.73 sq M.predicted among non-blacks MDRD (S/P/Bld) [Vol rate/Area] 33 mL/min/{1.73_m2} Low >60 [facility] Comment on above: Result Comment: mL/m in/1.73m2 CKD-EPI Creatinine Equation (2020) Performed By: #### L 500.2500, L501.5200 ####[facility] [address] [place], [address] Glucose [Mass/Vol] 137 mg/dL High 70-99 [facility] Comment on above: Performed By: #### L 500.2500, L501.5200 ####[facility] [address] [place], [address] Potassium [Moles/Vol] 4.8 mmol/L Normal 3.3-5.1 [facility] Comment on above: Performed By: #### L 500.2500, L501.5200 ####[facility] [address] [place], [address] Sodium [Moles/Vol] 131 mmol/L Low 133-145 [facility] Comment on above: Performed By: #### L 500.2500, L501.5200 ####[facility] [address] [place], [address] Urea nitrogen [Mass/Vol] 20 mg/dL High 4-19 [facility] Comment on above: Performed By: #### L 500.2500, L501.5200 ####[facility] [address] [place], [address] Bilirubin Test strip Ql (U)O rdered By: Elana Granda on 07-18-2025 Bilirubin Ql (U) Negative Negative [facility] Bilirubin, totalOrdered By: Elana Granda on 07-18-2025 Bilirubin [Mass/Vol] mg/dL 0.00-1.30 [facility] CBC W/Diff, Automatedon 07-07 Absolute Lymph 1.55 X10 3/uL Normal 0.83-4.51 [facility] Comment on above: Performed By: #### L 500.4050, L501.2300, L501.9520, L100.0100 ####[facility] [address] [place], [address] Absolute Neut 4.1 X10 3/uL Normal 2.0-7.7 [facility] Comment on above: Performed By: #### L 500.4050, L501.2300, L501.9520, L100.0100 ####[facility] [address] [place], [address] Basophils/100 WBC (Bld) 0.8 % Normal 0-1 [facility] Comment on above: Performed By: #### L 500.4050, L501.2300, L501.9520, L100.0100 ####[facility] [address] [place], [address] Eosinophils/100 WBC (Bld) 3.0 % Normal 0-5 [facility] Comment on above: Performed By: #### L 500.4050, L501.2300, L501.9520, L100.0100 ####[facility] [address] [place], [address] Erythrocyte distribution width (RBC) [Ratio] 12.9 % Normal 11.6-14.6 [facility] Comment on above: Performed By: #### L 500.4050, L501.2300, L501.9520, L100.0100 ####[facility] [address] [place], [address] Hematocrit (Bld) [Volume fraction] 31.0 % Low 37-47 [facility] Comment on above: Performed By: #### L 500.4050, L501.2300, L501.9520, L100.0100 ####[facility] [address] [place], [address] Hemoglobin (Bld) [Mass/Vol] 9.7 g/dL Low 12.0-15.0 [facility] Comment on above: Performed By: #### L 500.4050, L501.2300, L501.9520, L100.0100 ####[facility] [address] [place], [address] IG% 0.200 Normal 0.0-0.9 [facility] Comment on above: Result Comment: IG% - Immature Granulocytes (promyelocytes, myelocytes andmetamyelocytes) > 1% indicates that a LEFT SHIFT is Present. Performed By: #### L 500.4050, L501.2300, L501.9520, L100.0100 ####[facility] [address] [place], [address] Lymphocytes/100 WBC (Bld) 24.1 % Normal 19-41 [facility] Comment on above: Performed By: #### L 500.4050, L501.2300, L501.9520, L100.0100 ####[facility] [address] [place], [address] MCH (RBC) [Entitic mass] 26.7 pg Low 27.0-32.0 [facility] Comment on above: Performed By: #### L 500.4050, L501.2300, L501.9520, L100.0100 ####[facility] [address] [place], [address] MCHC (RBC) [Mass/Vol] 31.3 g/dL Low 32-36 [facility] Comment on above: Performed By: #### L 500.4050, L501.2300, L501.9520, L100.0100 ####[facility] [address] [place], [address] MCV (RBC) [Entitic vol] 85.4 fL Normal 81-99 [facility] Comment on above: Performed By: #### L 500.4050, L501.2300, L501.9520, L100.0100 ####[facility] [address] [place], [address] Monocytes/100 WBC (Bld) 8.2 % Normal 0-10 [facility] Comment on above: Performed By: #### L 500.4050, L501.2300, L501.9520, L100.0100 ####[facility] [address] [place], [address] Neutrophils/100 WBC (Bld) 63.7 % Normal 47-70 [facility] Comment on above: Performed By: #### L 500.4050, L501.2300, L501.9520, L100.0100 ####[facility] [address] [place], [address] Nucleated RBC (Bld) [#/Vol] 0 10*3/uL Normal 0-5 [facility] Comment on above: Performed By: #### L 500.4050, L501.2300, L501.9520, L100.0100 ####[facility] [address] [place], [address] Platelet mean volume (Bld) [Entitic vol] 9.8 fL Normal 6.2-12.0 [facility] Comment on above: Performed By: #### L 500.4050, L501.2300, L501.9520, L100.0100 ####[facility] [address] [place], [address] Platelets (Bld) [#/Vol] 210 10*3/uL Normal 150-450 [facility] Comment on above: Performed By: #### L 500.4050, L501.2300, L501.9520, L100.0100 ####[facility] [address] [place], [address] RBC (Bld) [#/Vol] 3.63 10*6/uL Low 4.2-5.4 [facility] Comment on above: Performed By: #### L 500.4050, L501.2300, L501.9520, L100.0100 ####[facility] [address] [place], [address] RDW SD 39.8 fl Normal 35.1-43.9 [facility] Comment on above: Performed By: #### L 500.4050, L501.2300, L501.9520, L100.0100 ####[facility] [address] [place], [address] WBC (Bld) [#/Vol] 6.4 10*3/uL Normal 4.4-11.0 [facility] Comment on above: Performed By: #### L 500.4050, L501.2300, L501.9520, L100.0100 ####[facility] [address] [place], [address] Comprehensive Metabolic Prof ilon 07-18-2025 Albumin [Mass/Vol] 3.5 g/dL Normal 3.4-4.8 [facility] Comment on above: Performed By: #### L 500.4050, L501.2300, L501.9520, L100.0100 ####[facility] [address] [place], [address] Albumin/Globulin [Mass ratio] 1.2 {ratio} Normal 0.9-2.4 [facility] Comment on above: Performed By: #### L 500.4050, L501.2300, L501.9520, L100.0100 ####[facility] [address] [place], [address] ALK PHOS 81 U/L Normal 35-104 [facility] Comment on above: Performed By: #### L 500.4050, L501.2300, L501.9520, L100.0100 ####[facility] [address] [place], [address] ALT [Catalytic activity/Vol] 13 U/L Normal <=34 [facility] Comment on above: Performed By: #### L 500.4050, L501.2300, L501.9520, L100.0100 ####[facility] [address] [place], [address] AST [Catalytic activity/Vol] 27 U/L Normal <=31 [facility] Comment on above: Performed By: #### L 500.4050, L501.2300, L501.9520, L100.0100 ####[facility] [address] [place], [address] BUN/CRE 11.8 RATIO Normal 10-20 [facility] Comment on above: Performed By: #### L 500.4050, L501.2300, L501.9520, L100.0100 ####[facility] [address] [place], [address] Calcium [Mass/Vol] 8.6 mg/dL Normal 7.6-11.0 [facility] Comment on above: Performed By: #### L 500.4050, L501.2300, L501.9520, L100.0100 ####[facility] [address] [place], [address] Chloride [Moles/Vol] 94 mmol/L Low 98-108 [facility] Comment on above: Performed By: #### L 500.4050, L501.2300, L501.9520, L100.0100 ####[facility] [address] [place], [address] CO2 [Moles/Vol] 25.8 mmol/L Normal 21.0-32.0 [facility] Comment on above: Performed By: #### L 500.4050, L501.2300, L501.9520, L100.0100 ####[facility] [address] [place], [address] Creatinine [Mass/Vol] 1.57 mg/dL High 0.70-1.20 [facility] Comment on above: Performed By: #### L 500.4050, L501.2300, L501.9520, L100.0100 ####[facility] [address] [place], [address] ECRCL 40.82 ml/min Low 50-250 [facility] Comment on above: Performed By: #### L 500.4050, L501.2300, L501.9520, L100.0100 ####[facility] [address] [place], [address] GAP 10 Normal 5-15 [facility] Comment on above: Performed By: #### L 500.4050, L501.2300, L501.9520, L100.0100 ####[facility] [address] [place], [address] GFR/1.73 sq M.predicted among non-blacks MDRD (S/P/Bld) [Vol rate/Area] 36 mL/min/{1.73_m2} Low >60 [facility] Comment on above: Result Comment: mL/m in/1.73m2 CKD-EPI Creatinine Equation (2020) Performed By: #### L 500.4050, L501.2300, L501.9520, L100.0100 ####[facility] [address] [place], [address] Globulin (S) [Mass/Vol] 2.8 g/dL Normal 2.2-4.2 [facility] Comment on above: Performed By: #### L 500.4050, L501.2300, L501.9520, L100.0100 ####[facility] [address] [place], [address] Glucose [Mass/Vol] 138 mg/dL High 70-99 [facility] Comment on above: Performed By: #### L 500.4050, L501.2300, L501.9520, L100.0100 ####[facility] [address] [place], [address] Potassium [Moles/Vol] 4.4 mmol/L Normal 3.3-5.1 [facility] Comment on above: Performed By: #### L 500.4050, L501.2300, L501.9520, L100.0100 ####[facility] [address] [place], [address] Sodium [Moles/Vol] 129 mmol/L Low 133-145 [facility] Comment on above: Performed By: #### L 500.4050, L501.2300, L501.9520, L100.0100 ####[facility] [address] [place], [address] T BILI < 0.15 Normal 0.00-1.30 [facility] Comment on above: Performed By: #### L 500.4050, L501.2300, L501.9520, L100.0100 ####[facility] [address] [place], [address] T PROT 6.3 g/dL Normal 5.9-8.4 [facility] Comment on above: Performed By: #### L 500.4050, L501.2300, L501.9520, L100.0100 ####[facility] [address] [place], [address] Urea nitrogen [Mass/Vol] 19 mg/dL Normal 4-19 [facility] Comment on above: Performed By: #### L 500.4050, L501.2300, L501.9520, L100.0100 ####[facility] [address] [place], [address] Free T3on 07-18-2025 Free T3 [Mass/Vol] 2.6 pg/mL Normal 2.18-3.98 [facility] Comment on above: Performed By: #### L 501.96753 ####[facility] [address] [place], [address] Free J9Hqorjpw By: Arnel Cano on 07-18-2025 Free T3 [Mass/Vol] 2.6 pg/mL 2.18-3.98 [facility] Ketones Test strip Ql (U)Ord ered By: Elana Granda on 07-18-2025 Ketones Ql (U) Negative Negative [facility] Laboratory - Chemistry and C hemistry - challengeOrdered By: Elana Granda on 07-18-2025 AST [Catalytic activity/Vol] 27 U/L <32 [facility] Magnesiumon 07-18-2025 Magnesium [Mass/Vol] 2.1 mg/dL Normal 1.5-2.2 [facility] Comment on above: Performed By: #### L 500.2500, L501.5200 ####[facility] [address] [place], [place], [address] Magnesium measurement (mass/ volume)Ordered By: Elana Granda on 07-18-2025 Magnesium (Unsp spec) [Mass/Vol] 2.1 mg/dL 1.5-2.2 [facility] Microscopic analysis of urin e for red blood cells (RBC)Ordered By: Elana Granda on 07-18-2025 Microscopic analysis of urine for red blood cells (RBC) 0-5 SEEN /hpf 0-5 [facility] Mucus LM Ql (Urine sed)Order ed By: Elana Granda on 07-18-2025 Mucus Ql (Urine sed) 0 SEEN /hpf [facility] Nitrite Test strip Ql (U)Ord ered By: Elana Granda on 07-18-2025 Nitrite Ql (U) Negative Negative [facility] Phosphoruson 07-18-2025 Phosphate [Mass/Vol] 3.6 mg/dL Normal 2.7-4.5 [facility] Comment on above: Performed By: #### L 500.4050, L501.2300, L501.9520, L100.0100 ####[facility] [address] [place], [address] Protein Test strip Ql (U)Ord ered By: Elana Granda on 07-18-2025 Protein Ql (U) 30 mg/dl High Negative [facility] Serum globulin measurementOr dered By: Elana Granda on 07-18-2025 Globulin (S) [Mass/Vol] 2.8 g/dL 2.2-4.2 [facility] Serum or plasma alanine hester otransferase (ALT) measurementOrdered By: Elana Granda on 07-18-2025 ALT [Catalytic activity/Vol] 13 U/L <35 [facility] Serum or plasma albumin marivel urement (mass/volume)Ordered By: Elana Granda on 07-18-2025 Albumin [Mass/Vol] 3.5 g/dL 3.4-4.8 [facility] Serum or plasma albumin/glob ulin mass ratioOrdered By: Elana Granda on 07-18-2025 Albumin/Globulin [Mass ratio] 1.2 {ratio} 0.9-2.4 [facility] Serum or plasma alkaline wai sphatase measurementOrdered By: Elana Granda on 07-18-2025 ALP [Catalytic activity/Vol] 81 U/L 35-104 [facility] Squamous epithelial cells de tection in urine sediment by light microscopyOrdered By: Elana Granda on 07-18-2025 Epithelial cells.squamous LM Ql (Urine sed) 0-5 SEEN /hpf 5-10 [facility] TSH DL <= 0.005 mIU/L QnOrde red By: Elana Granda on 07-18-2025 TSH Qn 0.077 uIU/mL Low 0.300-4.200 [facility] Thyroid Stim Hormone (TSH)on 07-18-2025 TSH 0.077 uIU/mL Low 0.300-4.200 [facility] Comment on above: Performed By: #### L 500.4050, L501.2300, L501.9520, L100.0100 ####[facility] [address] [place], [address] Total proteinOrdered By: Arpit Granda on 07-18-2025 Protein [Mass/Vol] 6.3 g/dL 5.9-8.4 [facility] Urinalysis, Completeon 07-18 EPI,SQUAMOUS 0-5 SEEN Normal 5-10 [facility] Comment on above: Order Comment: CLEAN CATCH Performed By: #### L 400.0001 ####[facility] [address] [place], [address] RBC 0-5 SEEN Normal 0-5 [facility] Comment on above: Order Comment: CLEAN CATCH Performed By: #### L 400.0001 ####[facility] [address] [place], [address] WBC 0-5 SEEN Normal 0-5 [facility] Comment on above: Order Comment: CLEAN CATCH Performed By: #### L 400.0001 ####[facility] [address] [place], [address] BACTERIA 0 SEEN Normal None Seen [facility] Comment on above: Order Comment: CLEAN CATCH Performed By: #### L 400.0001 ####[facility] [address] [place], [address] Mucus Ql (Urine sed) 0 SEEN Normal [facility] Comment on above: Order Comment: CLEAN CATCH Performed By: #### L 400.0001 ####[facility] [address] [place], [address] Urine clarityOrdered By: Arpit Granda on 07-18-2025 Clarity (U) Clear Clear [facility] Urine color determinationOrd ered By: Elana Granda on 07-18-2025 Color (U) Straw Yellow [facility] Urine glucose detectionOrder ed By: Elana Granda on 07-18-2025 Glucose Ql (U) Normal mg/dl Normal [facility] Urine leukocyte esterase det ection by dipstickOrdered By: Elana Granda on 07-18-2025 Leukocyte esterase Test strip Ql (U) Negative Negative [facility] Urine pHOrdered By: Elana kam on 07-18-2025 pH (U) 7.0 [pH] 5.0 - 8.0 [facility] Urine sediment bacteria coun t by microscopy (number/high power field)Ordered By: Elana Granda on 07-18-2025 Bacteria LM.HPF (Urine sed) [#/Area] 0 /[HPF] None Seen [facility] Urine specific gravity measu rementOrdered By: Elana Granda on 07-18-2025 Specific gravity (U) [Rel density] 1.010 1.002-1.030 [facility] Urine urobilinogen measureme ntOrdered By: Elana Jesus Alberto on 07-18-2025 Urobilinogen Ql (U) Normal mg/dl Normal [facility] White blood cell countOrdere d By: Elana Granda on 07-18-2025 White blood cell count 0-5 SEEN /hpf 0-5 [facility] Absolute lymphocyte countOrd ered By: Ramakrishna Maher on 07-17-2025 Lymphocytes Auto (Unsp spec) [#/Vol] 1.39 10*3/uL 0.83-4.51 [facility] Absolute neutrophil countOrd ered By: Ramakrishnaglo Maher on 07-17-2025 Neutrophils (Bld) [#/Vol] 5.6 10*3/uL 2.0-7.7 [facility] Anion gap in Serum or Plasma Ordered By: Ramakrishnaglo Maher on 07-17-2025 Anion gap [Moles/Vol] 9 mmol/L 5-15 [facility] Automated lymphocyte count a s percentage of total leukocytesOrdered By: Ramakrishnaglo Maher on 07-17-2025 Lymphocytes/100 WBC Auto (Unsp spec) 18.0 % Low 19-41 [facility] BUN/creatinine ratioOrdered By: Ramakrishnaglo Maher on 07-17-2025 Urea nitrogen/Creatinine [Mass ratio] 11.9 mg/mg 10-20 [facility] Basophil percentageOrdered B y: Ramakrishna Maher on 07-17-2025 Basophils/100 WBC (Bld) 1.0 % 0-1 [facility] Bilirubin, totalOrdered By: Ramakrishnaglo Maher on 07-17-2025 Bilirubin [Mass/Vol] 0.20 mg/dL 0.00-1.30 [facility] CBC W/Diff, Automatedon 07-07 Absolute Lymph 1.39 X10 3/uL Normal 0.83-4.51 [facility] Comment on above: Performed By: #### L 503.6005, L500.4050, L100.0100 ####[facility] [address] [place], [address] Absolute Neut 5.6 X10 3/uL Normal 2.0-7.7 [facility] Comment on above: Performed By: #### L 503.6005, L500.4050, L100.0100 ####[facility] [address] [place], [address] Basophils/100 WBC (Bld) 1.0 % Normal 0-1 [facility] Comment on above: Performed By: #### L 503.6005, L500.4050, L100.0100 ####[facility] [address] [place], [address] Eosinophils/100 WBC (Bld) 1.6 % Normal 0-5 [facility] Comment on above: Performed By: #### L 503.6005, L500.4050, L100.0100 ####[facility] [address] [place], [address] Erythrocyte distribution width (RBC) [Ratio] 13.2 % Normal 11.6-14.6 [facility] Comment on above: Performed By: #### L 503.6005, L500.4050, L100.0100 ####[facility] [address] [place], [address] Hematocrit (Bld) [Volume fraction] 35.4 % Low 37-47 [facility] Comment on above: Performed By: #### L 503.6005, L500.4050, L100.0100 ####[facility] [address] [place], [address] Hemoglobin (Bld) [Mass/Vol] 11.0 g/dL Low 12.0-15.0 [facility] Comment on above: Performed By: #### L 503.6005, L500.4050, L100.0100 ####[facility] [address] [place], [address] IG% 0.300 Normal 0.0-0.9 [facility] Comment on above: Result Comment: IG% - Immature Granulocytes (promyelocytes, myelocytes andmetamyelocytes) > 1% indicates that a LEFT SHIFT is Present. Performed By: #### L 503.6005, L500.4050, L100.0100 ####[facility] [address] [place], [address] Lymphocytes/100 WBC (Bld) 18.0 % Low 19-41 [facility] Comment on above: Performed By: #### L 503.6005, L500.4050, L100.0100 ####[facility] [address] [place], [address] MCH (RBC) [Entitic mass] 26.7 pg Low 27.0-32.0 [facility] Comment on above: Performed By: #### L 503.6005, L500.4050, L100.0100 ####[facility] [address] [place], [address] MCHC (RBC) [Mass/Vol] 31.1 g/dL Low 32-36 [facility] Comment on above: Performed By: #### L 503.6005, L500.4050, L100.0100 ####[facility] [address] [place], [address] MCV (RBC) [Entitic vol] 85.9 fL Normal 81-99 [facility] Comment on above: Performed By: #### L 503.6005, L500.4050, L100.0100 ####[facility] [address] [place], [address] Monocytes/100 WBC (Bld) 6.6 % Normal 0-10 [facility] Comment on above: Performed By: #### L 503.6005, L500.4050, L100.0100 ####[facility] [address] [place], [address] Neutrophils/100 WBC (Bld) 72.5 % High 47-70 [facility] Comment on above: Performed By: #### L 503.6005, L500.4050, L100.0100 ####[facility] [address] [place], [address] Nucleated RBC (Bld) [#/Vol] 0 10*3/uL Normal 0-5 [facility] Comment on above: Performed By: #### L 503.6005, L500.4050, L100.0100 ####[facility] [address] [place], [address] Platelet mean volume (Bld) [Entitic vol] 10.1 fL Normal 6.2-12.0 [facility] Comment on above: Performed By: #### L 503.6005, L500.4050, L100.0100 ####[facility] [address] [place], [address] Platelets (Bld) [#/Vol] 254 10*3/uL Normal 150-450 [facility] Comment on above: Performed By: #### L 503.6005, L500.4050, L100.0100 ####[facility] [address] [place], [address] RBC (Bld) [#/Vol] 4.12 10*6/uL Low 4.2-5.4 [facility] Comment on above: Performed By: #### L 503.6005, L500.4050, L100.0100 ####[facility] [address] [place], [address] RDW SD 41.0 fl Normal 35.1-43.9 [facility] Comment on above: Performed By: #### L 503.6005, L500.4050, L100.0100 ####[facility] [address] [place], [address] WBC (Bld) [#/Vol] 7.7 10*3/uL Normal 4.4-11.0 [facility] Comment on above: Performed By: #### L 503.6005, L500.4050, L100.0100 ####[facility] [address] [place], [address] CPK Total, Creatine Kinaseon 07-17-2025 CPK TOTAL 401 U/L High 24-195 [facility] Comment on above: Performed By: #### L 501.3620 ####[facility] [address] [place], [address] Carbon dioxide, total [Moles /volume] in Central venous bloodOrdered By: Ramakrishna Maher on 07-17-2025 CO2 [Moles/Vol] 26.8 mmol/L 21.0-32.0 [facility] Chloride assayOrdered By: Ug o Maher on 07-17-2025 Chloride [Moles/Vol] 94 mmol/L Low 98-108 [facility] Comprehensive Metabolic Prof ilon 07-17-2025 Albumin [Mass/Vol] 3.9 g/dL Normal 3.4-4.8 [facility] Comment on above: Performed By: #### L 503.6005, L500.4050, L100.0100 ####[facility] [address] [place], [address] Albumin/Globulin [Mass ratio] 1.2 {ratio} Normal 0.9-2.4 [facility] Comment on above: Performed By: #### L 503.6005, L500.4050, L100.0100 ####[facility] [address] [place], [address] ALK PHOS 89 U/L Normal 35-104 [facility] Comment on above: Performed By: #### L 503.6005, L500.4050, L100.0100 ####[facility] [address] [place], [address] ALT [Catalytic activity/Vol] 16 U/L Normal <=34 [facility] Comment on above: Performed By: #### L 503.6005, L500.4050, L100.0100 ####[facility] [address] [place], [address] AST [Catalytic activity/Vol] 35 U/L High <=31 [facility] Comment on above: Result Comment: Hemo lysis present, Results??could be affected.?? Performed By: #### L 503.6005, L500.4050, L100.0100 ####[facility] [address] [place], [address] Bilirubin [Mass/Vol] 0.20 mg/dL Normal 0.00-1.30 [facility] Comment on above: Performed By: #### L 503.6005, L500.4050, L100.0100 ####[facility] [address] [place], [address] BUN/CRE 11.9 RATIO Normal 10-20 [facility] Comment on above: Performed By: #### L 503.6005, L500.4050, L100.0100 ####[facility] [address] [place], [address] Calcium [Mass/Vol] 8.7 mg/dL Normal 7.6-11.0 [facility] Comment on above: Performed By: #### L 503.6005, L500.4050, L100.0100 ####[facility] [address] [place], [address] Chloride [Moles/Vol] 94 mmol/L Low 98-108 [facility] Comment on above: Performed By: #### L 503.6005, L500.4050, L100.0100 ####[facility] [address] [place], [address] CO2 [Moles/Vol] 26.8 mmol/L Normal 21.0-32.0 [facility] Comment on above: Performed By: #### L 503.6005, L500.4050, L100.0100 ####[facility] [address] [place], [address] Creatinine [Mass/Vol] 1.73 mg/dL High 0.70-1.20 [facility] Comment on above: Performed By: #### L 503.6005, L500.4050, L100.0100 ####[facility] [address] [place], [address] ECRCL 37.32 ml/min Low 50-250 [facility] Comment on above: Performed By: #### L 503.6005, L500.4050, L100.0100 ####[facility] [address] [place], [address] GAP 9 Normal 5-15 [facility] Comment on above: Performed By: #### L 503.6005, L500.4050, L100.0100 ####[facility] [address] [place], [address] GFR/1.73 sq M.predicted among non-blacks MDRD (S/P/Bld) [Vol rate/Area] 32 mL/min/{1.73_m2} Low >60 [facility] Comment on above: Result Comment: mL/m in/1.73m2 CKD-EPI Creatinine Equation (2020) Performed By: #### L 503.6005, L500.4050, L100.0100 ####[facility] [address] [place], [address] Globulin (S) [Mass/Vol] 3.2 g/dL Normal 2.2-4.2 [facility] Comment on above: Performed By: #### L 503.6005, L500.4050, L100.0100 ####[facility] [address] [place], [address] Glucose [Mass/Vol] 88 mg/dL Normal 70-99 [facility] Comment on above: Performed By: #### L 503.6005, L500.4050, L100.0100 ####[facility] [address] [place], [address] Potassium [Moles/Vol] 5.9 mmol/L High 3.3-5.1 [facility] Comment on above: Result Comment: Hemo lysis present, Results??could be affected.?? Performed By: #### L 503.6005, L500.4050, L100.0100 ####[facility] [address] [place], [address] Sodium [Moles/Vol] 130 mmol/L Low 133-145 [facility] Comment on above: Performed By: #### L 503.6005, L500.4050, L100.0100 ####[facility] [address] [place], [address] T PROT 7.1 g/dL Normal 5.9-8.4 [facility] Comment on above: Performed By: #### L 503.6005, L500.4050, L100.0100 ####[facility] [address] [place], [address] Urea nitrogen [Mass/Vol] 21 mg/dL High 4-19 [facility] Comment on above: Performed By: #### L 503.6005, L500.4050, L100.0100 ####[facility] [address] [place], [address] Emergency Department Summary on 07-17-2025 Emergency Department Summary Normal [facility] Eosinophil percentageOrdered By: Ramakrishna Maher on 07-17-2025 Eosinophils/100 WBC (Bld) 1.6 % 0-5 [facility] Erythrocyte distribution wid th ratioOrdered By: Ramakrishnaglo Maher on 07-17-2025 Erythrocyte distribution width (RBC) [Ratio] 13.2 % 11.6-14.6 [facility] Erythrocyte distribution wid th standard deviationOrdered By: Ramakrishnaglo Maher on 07-17-2025 Erythrocyte distribution width (RBC) [Ratio] 41.0 fl 35.1-43.9 [facility] Glomerular filtration rate ( GFR) estimation/1.73 sq m using serum, plasma, or whole bOrdered By: Ramakrishnaglo Maher on 07-17-2025 GFR/1.73 sq M.predicted among non-blacks MDRD (S/P/Bld) [Vol rate/Area] 32 mL/min/{1.73_m2} Low >60 [facility] Comment on above: mL/min/1.73m2 CKD-EP I Creatinine Equation (2020) H AND P Exam - [place] 07-17-2025 H&P Exam - Hospitalist Normal [facility] Hematocrit Auto (Bld) [Volum e fraction]Ordered By: Ramakrishnaglo Maher on 07-17-2025 Hematocrit (Bld) [Volume fraction] 35.4 % Low 37-47 [facility] Hemoglobin measurementOrdere d By: Ramakrishnaglo Maher on 07-17-2025 Hemoglobin (Bld) [Mass/Vol] 11.0 g/dL Low 12.0-15.0 [facility] Immature granulocytes/100 WB C Auto (Bld)Ordered By: Ramakrishnaglo Maher on 07-17-2025 Immature granulocytes/100 WBC (Bld) 0.300 % 0.0-0.9 [facility] Comment on above: IG% - Immature Granu locytes (promyelocytes, myelocytes and metamyelocytes) > 1% indicates that a LEFT SHIFT is Present. Laboratory - Chemistry and C hemistry - challengeOrdered By: Ramakrishnaglo Maher on 07-17-2025 AST [Catalytic activity/Vol] 35 U/L High <32 [facility] Comment on above: Hemolysis present, R esults could be affected. Lactic Acidon 07-17-2025 Lactate [Moles/Vol] mmol/L Normal 0.0-2.0 [facility] Comment on above: Order Comment: Y Performed By: #### L 503.6005, L500.4050, L100.0100 ####[facility] [address] [place], [address] Lactic acid measurementOrder ed By: Ramakrishnaglo Maher on 07-17-2025 Lactate [Moles/Vol] mmol/L 0.0-2.0 [facility] MCV (mean corpuscular volume ) determinationOrdered By: Ramakrishna Maher on 07-17-2025 MCV (RBC) [Entitic vol] 85.9 fL 81-99 [facility] Mean corpuscular hemoglobin (MCH) determinationOrdered By: [facility] on 07-17-2025 MCH (RBC) [Entitic mass] 26.7 pg Low 27.0-32.0 [facility] Mean corpuscular hemoglobin concentration (MCHC) determinationOrdered By: [facility] on 07-17-2025 MCHC (RBC) [Mass/Vol] 31.1 g/dL Low 32-36 [facility] Mean platelet volume determi nationOrdered By: [facility] on 07-17-[facility]25 Platelet mean volume (Bld) [Entitic vol] 10.1 fL 6.2-12.0 [facility] Monocyte percentageOrdered B y: Ramakrishnaglo Maher on 07-17-2025 Monocytes/100 WBC (Bld) 6.6 % 0-10 [facility] Neutrophil percentageOrdered By: [facility] on 07-17-2025 Neutrophils/100 WBC (Bld) 72.5 % High 47-70 [facility] Nucleated red blood cell per centageOrdered By: [facility] on 07-17-2025 Nucleated RBC/100 WBC (Bld) [Ratio] 0 % 0-5 [facility] Platelet countOrdered By: [facility] on 07-17-2025 Platelets (Bld) [#/Vol] 254 10*3/uL 150-450 [facility] Potassium measurement (mass/ volume)Ordered By: Ramakrishna [facility] on 07-17-2025 Potassium (Unsp spec) [Mass/Vol] 5.9 mmol/L High 3.3-5.1 [facility] Comment on above: Hemolysis present, R esults could be affected. RBC Auto (Bld) [#/Vol]Ordere d By: Ramakrishna Maher on 07-17-2025 RBC (Bld) [#/Vol] 4.12 10*6/uL Low 4.2-5.4 [facility] Serum creatinine measurement (mass/volume)Ordered By: Ramakrishna Maher on 07-17-2025 Creatinine [Mass/Vol] 1.73 mg/dL High 0.70-1.20 [facility] Serum globulin measurementOr dered By: Ramakrishna Maher on 07-17-2025 Globulin (S) [Mass/Vol] 3.2 g/dL 2.2-4.2 [facility] Serum glucose measurement (m ass/volume)Ordered By: Ramakrishna Maher on 07-17-2025 Glucose [Mass/Vol] 88 mg/dL 70-99 [facility] Serum or plasma alanine hester otransferase (ALT) measurementOrdered By: Ramakrishna Maher on 07-17-2025 ALT [Catalytic activity/Vol] 16 U/L <35 [facility] Serum or plasma albumin marivel urement (mass/volume)Ordered By: Ramakrishna Maher 07-17-2025 Albumin [Mass/Vol] 3.9 g/dL 3.4-4.8 [facility] Serum or plasma albumin/glob ulin mass ratioOrdered By: Ramakrishna Maher 07-17-2025 Albumin/Globulin [Mass ratio] 1.2 {ratio} 0.9-2.4 [facility] Serum or plasma alkaline wai sphatase measurementOrdered By: Ramakrishna Maher on 07-17-2025 ALP [Catalytic activity/Vol] 89 U/L 35-104 [facility] Serum or plasma calcium marivel urement (mass/volume)Ordered By: Ramakrishna Maher 07-17-2025 Calcium [Mass/Vol] 8.7 mg/dL 7.6-11.0 [facility] Serum or plasma creatine kin ase activityOrdered By: Ramakrishna Maher on 07-17-2025 CK [Catalytic activity/Vol] 401 U/L High 24-195 [facility] Serum or plasma urea nitroge n measurement (mass/volume)Ordered By: Ramakrishna Maher on 07-17-2025 Urea nitrogen [Mass/Vol] 21 mg/dL High 4-19 [facility] Sodium levelOrdered By: Ramakrishna Maher on 07-17-2025 Sodium [Moles/Vol] 130 mmol/L Low 133-145 [facility] Total proteinOrdered By: Ramakrishna Maher on 07-17-2025 Protein [Mass/Vol] 7.1 g/dL 5.9-8.4 [facility] White blood cell (WBC) count Ordered By: Ramakrishan Maher on 07-17-2025 WBC (Bld) [#/Vol] 7.7 10*3/uL 4.4-11.0 [facility] Absolute lymphocyte countOrd ered By: Mihaela Simpson on 06-26-2025 Lymphocytes Auto (Unsp spec) [#/Vol] 2.19 10*3/uL 0.83-4.51 [facility] Absolute neutrophil countOrd ered By: Mihaela Simpson on 06-26-2025 Neutrophils (Bld) [#/Vol] 7.4 10*3/uL 2.0-7.7 [facility] Automated lymphocyte count a s percentage of total leukocytesOrdered By: Mihaela Simpson on 06-26-2025 Lymphocytes/100 WBC Auto (Unsp spec) 21.1 % 19- [facility] Basophil percentageOrdered B y: Mihaela Simpson on 06-26-2025 Basophils/100 WBC (Bld) 0.8 % 0-1 [facility] CBC W/Diff, Automatedon 06-07 Absolute Lymph 2.19 X10 3/uL Normal 0.83-4.51 [facility] Comment on above: Performed By: #### L 100.9950, L503.6550, L100.0100, L503.0106, L506.1001, L503.6030 ####[facility] [address] [place], [place], [address] Absolute Neut 7.4 X10 3/uL Normal 2.0-7.7 [facility] Comment on above: Performed By: #### L 100.9950, L503.6550, L100.0100, L503.0106, L506.1001, L503.6030 ####[facility] [address] [place], [address] Basophils/100 WBC (Bld) 0.8 % Normal 0-1 [facility] Comment on above: Performed By: #### L 100.9950, L503.6550, L100.0100, L503.0106, L506.1001, L503.6030 ####[facility] [address] [place], [address] Eosinophils/100 WBC (Bld) 1.4 % Normal 0-5 [facility] Comment on above: Performed By: #### L 100.9950, L503.6550, L100.0100, L503.0106, L506.1001, L503.6030 ####[facility] [address] [place], [address] Erythrocyte distribution width (RBC) [Ratio] 13.9 % Normal 11.6-14.6 [facility] Comment on above: Performed By: #### L 100.9950, L503.6550, L100.0100, L503.0106, L506.1001, L503.6030 ####[facility] [address] [place], [address] Hematocrit (Bld) [Volume fraction] 35.8 % Low 37-47 [facility] Comment on above: Performed By: #### L 100.9950, L503.6550, L100.0100, L503.0106, L506.1001, L503.6030 ####[facility] [address] [place], [address] Hemoglobin (Bld) [Mass/Vol] 11.1 g/dL Low 12.0-15.0 [facility] Comment on above: Performed By: #### L 100.9950, L503.6550, L100.0100, L503.0106, L506.1001, L503.6030 ####[facility] [address] [place], [address] IG% 0.300 Normal 0.0-0.9 [facility] Comment on above: Result Comment: IG% - Immature Granulocytes (promyelocytes, myelocytes andmetamyelocytes) > 1% indicates that a LEFT SHIFT is Present. Performed By: #### L 100.9950, L503.6550, L100.0100, L503.0106, L506.1001, L503.6030 ####[facility] [address] [place], [address] Lymphocytes/100 WBC (Bld) 21.1 % Normal 19-41 [facility] Comment on above: Performed By: #### L 100.9950, L503.6550, L100.0100, L503.0106, L506.1001, L503.6030 ####[facility] [address] [place], [address] MCH (RBC) [Entitic mass] 27.0 pg Normal 27.0-32.0 [facility] Comment on above: Performed By: #### L 100.9950, L503.6550, L100.0100, L503.0106, L506.1001, L503.6030 ####[facility] [address] [place], [address] MCHC (RBC) [Mass/Vol] 31.0 g/dL Low 32-36 [facility] Comment on above: Performed By: #### L 100.9950, L503.6550, L100.0100, L503.0106, L506.1001, L503.6030 ####[facility] [address] [place], [address] MCV (RBC) [Entitic vol] 87.1 fL Normal 81-99 [facility] Comment on above: Performed By: #### L 100.9950, L503.6550, L100.0100, L503.0106, L506.1001, L503.6030 ####[facility] [address] [place], [address] Monocytes/100 WBC (Bld) 5.4 % Normal 0-10 [facility] Comment on above: Performed By: #### L 100.9950, L503.6550, L100.0100, L503.0106, L506.1001, L503.6030 ####[facility] [address] [place], [address] Neutrophils/100 WBC (Bld) 71.0 % High 47-70 [facility] Comment on above: Performed By: #### L 100.9950, L503.6550, L100.0100, L503.0106, L506.1001, L503.6030 ####[facility] [address] [place], [address] Nucleated RBC (Bld) [#/Vol] 0 10*3/uL Normal 0-5 [facility] Comment on above: Performed By: #### L 100.9950, L503.6550, L100.0100, L503.0106, L506.1001, L503.6030 ####[facility] [address] [place], [address] Platelet mean volume (Bld) [Entitic vol] 10.2 fL Normal 6.2-12.0 [facility] Comment on above: Performed By: #### L 100.9950, L503.6550, L100.0100, L503.0106, L506.1001, L503.6030 ####[facility] [address] [place], [address] Platelets (Bld) [#/Vol] 332 10*3/uL Normal 150-450 [facility] Comment on above: Performed By: #### L 100.9950, L503.6550, L100.0100, L503.0106, L506.1001, L503.6030 ####[facility] [address] [place], [address] RBC (Bld) [#/Vol] 4.11 10*6/uL Low 4.2-5.4 [facility] Comment on above: Performed By: #### L 100.9950, L503.6550, L100.0100, L503.0106, L506.1001, L503.6030 ####[facility] [address] [place], [address] RDW SD 44.4 fl High 35.1-43.9 [facility] Comment on above: Performed By: #### L 100.9950, L503.6550, L100.0100, L503.0106, L506.1001, L503.6030 ####[facility] [address] [place], [address] WBC (Bld) [#/Vol] 10.4 10*3/uL Normal 4.4-11.0 [facility] Comment on above: Performed By: #### L 100.9950, L503.6550, L100.0100, L503.0106, L506.1001, L503.6030 ####[facility] [address] [place], [address] Eosinophil percentageOrdered By: Mihaela Simpson on 06-26-2025 Eosinophils/100 WBC (Bld) 1.4 % 0-5 [facility] Erythrocyte distribution wid th ratioOrdered By: Mihaela Simpson on 06-26-2025 Erythrocyte distribution width (RBC) [Ratio] 13.9 % 11.6-14.6 [facility] Erythrocyte distribution wid th standard deviationOrdered By: Mihaela Simpson on 06-26-2025 Erythrocyte distribution width (RBC) [Ratio] 44.4 fl High 35.1-43.9 [facility] Ferritinon 06-26-2025 Ferritin [Mass/Vol] 150 ng/mL Normal 22-378 [facility] Comment on above: Performed By: #### L 100.9950, L503.6550, L100.0100, L503.0106, L506.1001, L503.6030 ####[facility] [address] [place], [address] Hematocrit Auto (Bld) [Volum e fraction]Ordered By: Mihaela Simpson on 06-26-2025 Hematocrit (Bld) [Volume fraction] 35.8 % Low 37-47 [facility] Hemoglobin measurementOrdere d By: Mihaela Simpson on 06-26-2025 Hemoglobin (Bld) [Mass/Vol] 11.1 g/dL Low 12.0-15.0 [facility] Immature granulocytes/100 WB C Auto (Bld)Ordered By: Mihaelagermán Simpson on 06-26-2025 Immature granulocytes/100 WBC (Bld) 0.300 % 0.0-0.9 [facility] Comment on above: IG% - Immature Granu locytes (promyelocytes, myelocytes and metamyelocytes) > 1% indicates that a LEFT SHIFT is Present. Internal Medicine Office Vis iton 06-26-2025 Internal Medicine Office Visit Normal [facility] Iron measurement (mass/mass) Ordered By: Mihaela Simpson on 06-26-2025 Iron (Unsp spec) [Mass/Mass] 40 ug/dL Low 50-170 [facility] Iron+Iron Binding Capacityon 06-26-2025 Iron [Mass/Vol] 40 ug/dL Low 50-170 [facility] Comment on above: Performed By: #### L 100.9950, L503.6550, L100.0100, L503.0106, L506.1001, L503.6030 ####[facility] [address] [place], [address] IRON SATURATION 16.0 Normal 13-59 [facility] Comment on above: Performed By: #### L 100.9950, L503.6550, L100.0100, L503.0106, L506.1001, L503.6030 ####[facility] [address] [place], [address] TIBC 256 ug/dL Normal 250-450 [facility] Comment on above: Performed By: #### L 100.9950, L503.6550, L100.0100, L503.0106, L506.1001, L503.6030 ####[facility] [address] [place], [address] UIBC 216 ug/dL Low 228-428 [facility] Comment on above: Performed By: #### L 100.9950, L503.6550, L100.0100, L503.0106, L506.1001, L503.6030 ####[facility] [address] [place], [address] MCV (mean corpuscular volume ) determinationOrdered By: Mihaela Simpson on 06-26-2025 MCV (RBC) [Entitic vol] 87.1 fL 81-99 [facility] Mean corpuscular hemoglobin (MCH) determinationOrdered By: Mihaela Simpson on 06-26-2025 MCH (RBC) [Entitic mass] 27.0 pg 27.0-32.0 [facility] Mean corpuscular hemoglobin concentration (MCHC) determinationOrdered By: Mihaela Simpson on 06-26-2025 MCHC (RBC) [Mass/Vol] 31.0 g/dL Low 32-36 [facility] Mean platelet volume determi nationOrdered By: Mihaela Simspon on 06-26-2025 Platelet mean volume (Bld) [Entitic vol] 10.2 fL 6.2-12.0 [facility] Monocyte percentageOrdered B y: Mihaela Simpson on 06-26-2025 Monocytes/100 WBC (Bld) 5.4 % 0-10 [facility] Neutrophil percentageOrdered By: Mihaela Simpson on 06-26-2025 Neutrophils/100 WBC (Bld) 71.0 % High 47-70 [facility] No Panel InformationOrdered By: Mihaela Simpson on 06-26-2025 Unsaturated Iron Binding Capacity 216 ug/dL Low 228-428 [facility] Nucleated red blood cell per centageOrdered By: Mihaela Simpson on 06-26-2025 Nucleated RBC/100 WBC (Bld) [Ratio] 0 % 0-5 [facility] Platelet countOrdered By: Clifton Simpson on 06-26-2025 Platelets (Bld) [#/Vol] 332 10*3/uL 150-450 [facility] RBC Auto (Bld) [#/Vol]Ordere d By: Mihaela Simpson on 06-26-2025 RBC (Bld) [#/Vol] 4.11 10*6/uL Low 4.2-5.4 [facility] Retic Panelon 06-26-2025 IM RET FRACTION 7.70 Normal 3.00-15.90 [facility] Comment on above: Performed By: #### L 100.9950, L503.6550, L100.0100, L503.0106, L506.1001, L503.6030 ####[facility] [address] [place], [place], [id number] RET-HE 27.3 pg Low 30-35 [facility] Comment on above: Performed By: #### L 100.9950, L503.6550, L100.0100, L503.0106, L506.1001, L503.6030 ####[facility] [address] [place], [place], [id number](633) Retic Count 2.20 High 0.5-1.5 [facility] Comment on above: Performed By: #### L 100.9950, L503.6550, L100.0100, L503.0106, L506.1001, L503.6030 ####[facility] [address] [place], [place], [id number] Reticulocyte hemoglobin equi valent (RET-He) measurementOrdered By: Mihaela Simpson on 06-26-2025 Hemoglobin (Reticulocytes) [Entitic mass] 27.3 pg Low 30-35 [facility] Reticulocytes Auto (Bld) [#/ Vol]Ordered By: Mihaela Simpson on 06-26-2025 Reticulocytes/100 RBC (Bld) 2.20 % High 0.5-1.5 [facility] Serum or plasma ferritin josé miguel surement (mass/volume)Ordered By: Mihaela Simpson on 06-26-2025 Ferritin [Mass/Vol] 150 ng/mL 22-378 [facility] Serum or plasma iron saturat ion measurement (mass fraction)Ordered By: Mihaela Simpson on 06-26-2025 Iron saturation [Mass fraction] 16.0 % 13-59 [facility] Vitamin B12on 06-26-2025 Cobalamin (Vitamin B12) [Mass/Vol] 472 pg/mL Normal 180-914 [facility] Comment on above: Performed By: #### L 100.9950, L503.6550, L100.0100, L503.0106, L506.1001, L503.6030 ####[facility] [address] [place], [place], [id number] Vitamin B12 ser/plasOrdered By: Mihaela Simpson on 06-26-2025 Cobalamin (Vitamin B12) [Mass/Vol] 472 pg/mL 180-914 [facility] Vitamin D,25 Hydroxyon 06-26 Vitamin D 25-OH 69.4 ng/mL Normal 30-100 [facility] Comment on above: Result Comment: Shania min D StatusDeficiency: <20 ng/mL (50nmol/L)Insufficiency: 20-30 ng/mL (50-75 nmol/L)Sufficiency: 30-100 ng/mL (75-250 nmol/L)Toxicity: >100 ng/mL (>250 nmol/L) Performed By: #### L 100.9950, L503.6550, L100.0100, L503.0106, L506.1001, L503.6030 ####[facility] [address] [place], [address] White blood cell (WBC) count Ordered By: Mihaela Simpson on 06-26-2025 WBC (Bld) [#/Vol] 10.4 10*3/uL 4.4-11.0 [facility] Pulmonary Visit Reporton Pulmonary Visit Report Normal [facility] Thyroidon 05-07-2025 Thyroid Normal [facility] ECG 12-LEADon 04-30-2025 ECG 12-LEAD Sinus Rhythm -Right atrial enlargement. BORDERLINE Normal [facility] No Panel Informationon 04-30 Sinus Rhythm -Right atrial enlargement. BORDERLINE [facility] Low Dose CT Lung Screeningon 04-17-[address] Lung Screening Normal [facility] Absolute lymphocyte countOrd ered By: Jennifer Gordon on 2025 Lymphocytes Auto (Unsp spec) [#/Vol] 1.98 10*3/uL 0.83-4.51 [facility] Absolute neutrophil countOrd ered By: Jennifer Gordon on 2025 Neutrophils (Bld) [#/Vol] 7.8 10*3/uL High 2.0-7.7 [facility] Anion gap in Serum or Plasma Ordered By: Jennifer Gordon on 2025 Anion gap [Moles/Vol] 10 mmol/L 5-15 [facility] Automated lymphocyte count a s percentage of total leukocytesOrdered By: Jennifer Gordon on 2025 Lymphocytes/100 WBC Auto (Unsp spec) 18.1 % Low 19-41 [facility] BUN/creatinine ratioOrdered By: Jennifer Gordon on 2025 Urea nitrogen/Creatinine [Mass ratio] 13.9 mg/mg 10-20 [facility] Basophil percentageOrdered B y: Jennifer Gordon on 2025 Basophils/100 WBC (Bld) 1.0 % 0-1 [facility] Bilirubin Test strip Ql (U)O rdered By: Jennifer Gordon on 2025 Bilirubin Ql (U) Negative Negative [facility] Bilirubin, totalOrdered By: Jennifer Gordon on 2025 Bilirubin [Mass/Vol] 0.17 mg/dL 0.00-1.30 [facility] CBC W/Diff, Automatedon 04-06 Absolute Lymph 1.98 X10 3/uL Normal 0.83-4.51 [facility] Comment on above: Performed By: #### L 100.0100, L500.4100, L501.9985, L500.4050 ####[facility] [address] [place], [address] Absolute Neut 7.8 X10 3/uL High 2.0-7.7 [facility] Comment on above: Performed By: #### L 100.0100, L500.4100, L501.9985, L500.4050 ####[facility] [address] [place], [address] Basophils/100 WBC (Bld) 1.0 % Normal 0-1 [facility] Comment on above: Performed By: #### L 100.0100, L500.4100, L501.9985, L500.4050 ####[facility] [address] [place], [address] Eosinophils/100 WBC (Bld) 2.2 % Normal 0-5 [facility] Comment on above: Performed By: #### L 100.0100, L500.4100, L501.9985, L500.4050 ####[facility] [address] [place], [address] Erythrocyte distribution width (RBC) [Ratio] 15.2 % High 11.6-14.6 [facility] Comment on above: Performed By: #### L 100.0100, L500.4100, L501.9985, L500.4050 ####[facility] [address] [place], [address] Hematocrit (Bld) [Volume fraction] 34.9 % Low 37-47 [facility] Comment on above: Performed By: #### L 100.0100, L500.4100, L501.9985, L500.4050 ####[facility] [address] [place], [address] Hemoglobin (Bld) [Mass/Vol] 10.5 g/dL Low 12.0-15.0 [facility] Comment on above: Performed By: #### L 100.0100, L500.4100, L501.9985, L500.4050 ####[facility] [address] [place], [address] IG% 0.500 Normal 0.0-0.9 [facility] Comment on above: Result Comment: IG% - Immature Granulocytes (promyelocytes, myelocytes andmetamyelocytes) > 1% indicates that a LEFT SHIFT is Present. Performed By: #### L 100.0100, L500.4100, L501.9985, L500.4050 ####[facility] [address] [place], [address] Lymphocytes/100 WBC (Bld) 18.1 % Low 19-41 [facility] Comment on above: Performed By: #### L 100.0100, L500.4100, L501.9985, L500.4050 ####[facility] [address] [place], [address] MCH (RBC) [Entitic mass] 25.9 pg Low 27.0-32.0 [facility] Comment on above: Performed By: #### L 100.0100, L500.4100, L501.9985, L500.4050 ####[facility] [address] [place], [address] MCHC (RBC) [Mass/Vol] 30.1 g/dL Low 32-36 [facility] Comment on above: Performed By: #### L 100.0100, L500.4100, L501.9985, L500.4050 ####[facility] [address] [place], [address] MCV (RBC) [Entitic vol] 86.2 fL Normal 81-99 [facility] Comment on above: Performed By: #### L 100.0100, L500.4100, L501.9985, L500.4050 ####[facility] [address] [place], [address] Monocytes/100 WBC (Bld) 7.0 % Normal 0-10 [facility] Comment on above: Performed By: #### L 100.0100, L500.4100, L501.9985, L500.4050 ####[facility] [address] [place], [address] Neutrophils/100 WBC (Bld) 71.2 % High 47-70 [facility] Comment on above: Performed By: #### L 100.0100, L500.4100, L501.9985, L500.4050 ####[facility] [address] [place], [address] Nucleated RBC (Bld) [#/Vol] 0 10*3/uL Normal 0-5 [facility] Comment on above: Performed By: #### L 100.0100, L500.4100, L501.9985, L500.4050 ####[facility] [address] [place], [address] Platelet mean volume (Bld) [Entitic vol] 10.5 fL Normal 6.2-12.0 [facility] Comment on above: Performed By: #### L 100.0100, L500.4100, L501.9985, L500.4050 ####[facility] [address] [place], [address] Platelets (Bld) [#/Vol] 347 10*3/uL Normal 150-450 [facility] Comment on above: Performed By: #### L 100.0100, L500.4100, L501.9985, L500.4050 ####[facility] [address] [place], [address] RBC (Bld) [#/Vol] 4.05 10*6/uL Low 4.2-5.4 [facility] Comment on above: Performed By: #### L 100.0100, L500.4100, L501.9985, L500.4050 ####[facility] [address] [place], [address] RDW SD 47.7 fl High 35.1-43.9 [facility] Comment on above: Performed By: #### L 100.0100, L500.4100, L501.9985, L500.4050 ####[facility] [address] [place], [address] WBC (Bld) [#/Vol] 10.9 10*3/uL Normal 4.4-11.0 [facility] Comment on above: Performed By: #### L 100.0100, L500.4100, L501.9985, L500.4050 ####[facility] [address] [place], [address] Calculated very low density lipoprotein (VLDL) cholesterol measurementOrdered By: Jennifer Heidi on 2025 Calculated very low density lipoprotein (VLDL) cholesterol measurement 32 mg/dL 5-40 [facility] Carbon dioxide, total [Moles /volume] in Central venous bloodOrdered By: Jennifer Heidi on 2025 CO2 [Moles/Vol] 29.0 mmol/L 21.0-32.0 [facility] Chloride assayOrdered By: Al ycia Heidi on 2025 Chloride [Moles/Vol] 97 mmol/L Low 98-108 [facility] Comprehensive Metabolic Prof ilon 2025 Albumin [Mass/Vol] 4.2 g/dL Normal 3.4-4.8 [facility] Comment on above: Performed By: #### L 100.0100, L500.4100, L501.9985, L500.4050 ####[facility] [address] [place], [address] Albumin/Globulin [Mass ratio] 1.3 {ratio} Normal 0.9-2.4 [facility] Comment on above: Performed By: #### L 100.0100, L500.4100, L501.9985, L500.4050 ####[facility] [address] [place], [address] ALK PHOS 80 U/L Normal 35-104 [facility] Comment on above: Performed By: #### L 100.0100, L500.4100, L501.9985, L500.4050 ####[facility] [address] [place], [address] ALT [Catalytic activity/Vol] 27 U/L Normal <=34 [facility] Comment on above: Performed By: #### L 100.0100, L500.4100, L501.9985, L500.4050 ####[facility] [address] [place], [address] AST [Catalytic activity/Vol] 27 U/L Normal <=31 [facility] Comment on above: Performed By: #### L 100.0100, L500.4100, L501.9985, L500.4050 ####[facility] [address] [place], [address] Bilirubin [Mass/Vol] 0.17 mg/dL Normal 0.00-1.30 [facility] Comment on above: Performed By: #### L 100.0100, L500.4100, L501.9985, L500.4050 ####[facility] [address] [place], [address] BUN/CRE 13.9 RATIO Normal 10-20 [facility] Comment on above: Performed By: #### L 100.0100, L500.4100, L501.9985, L500.4050 ####[facility] [address] [place], [address] Calcium [Mass/Vol] 9.5 mg/dL Normal 7.6-11.0 [facility] Comment on above: Performed By: #### L 100.0100, L500.4100, L501.9985, L500.4050 ####[facility] [address] [place], [address] Chloride [Moles/Vol] 97 mmol/L Low 98-108 [facility] Comment on above: Performed By: #### L 100.0100, L500.4100, L501.9985, L500.4050 ####[facility] [address] [place], [address] CO2 [Moles/Vol] 29.0 mmol/L Normal 21.0-32.0 [facility] Comment on above: Performed By: #### L 100.0100, L500.4100, L501.9985, L500.4050 ####[facility] [address] [place], [address] Creatinine [Mass/Vol] 1.47 mg/dL High 0.70-1.20 [facility] Comment on above: Performed By: #### L 100.0100, L500.4100, L501.9985, L500.4050 ####[facility] [address] [place], [address] GAP 10 Normal 5-15 [facility] Comment on above: Performed By: #### L 100.0100, L500.4100, L501.9985, L500.4050 ####[facility] [address] [place], [address] GFR/1.73 sq M.predicted among non-blacks MDRD (S/P/Bld) [Vol rate/Area] 39 mL/min/{1.73_m2} Low >60 [facility] Comment on above: Result Comment: mL/m in/1.73m2 CKD-EPI Creatinine Equation (2020) Performed By: #### L 100.0100, L500.4100, L501.9985, L500.4050 ####[facility] [address] [place], [address] Globulin (S) [Mass/Vol] 3.3 g/dL Normal 2.2-4.2 [facility] Comment on above: Performed By: #### L 100.0100, L500.4100, L501.9985, L500.4050 ####[facility] [address] [place], [address] Glucose [Mass/Vol] 98 mg/dL Normal 70-99 [facility] Comment on above: Performed By: #### L 100.0100, L500.4100, L501.9985, L500.4050 ####[facility] [address] [place], [address] Potassium [Moles/Vol] 5.6 mmol/L High 3.3-5.1 [facility] Comment on above: Performed By: #### L 100.0100, L500.4100, L501.9985, L500.4050 ####[facility] [address] [place], [address] Sodium [Moles/Vol] 135 mmol/L Normal 133-145 [facility] Comment on above: Performed By: #### L 100.0100, L500.4100, L501.9985, L500.4050 ####[facility] [address] [place], [address] T PROT 7.5 g/dL Normal 5.9-8.4 [facility] Comment on above: Performed By: #### L 100.0100, L500.4100, L501.9985, L500.4050 ####[facility] [address] [place], [address] Urea nitrogen [Mass/Vol] 20 mg/dL High 4-19 [facility] Comment on above: Performed By: #### L 100.0100, L500.4100, L501.9985, L500.4050 ####[facility] [address] [place], [address] Eosinophil percentageOrdered By: Jennifer Gordon on 2025 Eosinophils/100 WBC (Bld) 2.2 % 0-5 [facility] Erythrocyte distribution wid th ratioOrdered By: Jennifer Gordon on 2025 Erythrocyte distribution width (RBC) [Ratio] 15.2 % High 11.6-14.6 [facility] Erythrocyte distribution wid th standard deviationOrdered By: Jennifer Gordon on 2025 Erythrocyte distribution width (RBC) [Ratio] 47.7 fl High 35.1-43.9 [facility] Glomerular filtration rate ( GFR) estimation/1.73 sq m using serum, plasma, or whole bOrdered By: Jennifer Gordon on 2025 GFR/1.73 sq M.predicted among non-blacks MDRD (S/P/Bld) [Vol rate/Area] 39 mL/min/{1.73_m2} Low >60 [facility] Comment on above: mL/min/1.73m2 CKD-EP I Creatinine Equation (2020) Hematocrit Auto (Bld) [Volum e fraction]Ordered By: Jennifer Gordon on 2025 Hematocrit (Bld) [Volume fraction] 34.9 % Low 37-47 [facility] Hemoglobin A1con 2025 HbA1c (Bld) [Mass fraction] 5.7 % Normal <=5.6 [facility] Comment on above: Result Comment: Norm al < 5.7 % Prediabetic 5.7 - 6.4 % Diabetic >or= 6.5 % Please note range changes. Performed By: #### L 100.0100, L500.4100, L501.9985, L500.4050 ####[facility] [address] [place], [address] Hemoglobin A1c percentageOrd ered By: Jennifer Gordon on 2025 HbA1c (Bld) [Mass fraction] 5.7 % <5.7 [facility] Comment on above: Normal < 5.7 % Predi abetic 5.7 - 6.4 % Diabetic >or= 6.5 % Please note range changes. Hemoglobin measurementOrdere d By: Jennifer Gordon on 2025 Hemoglobin (Bld) [Mass/Vol] 10.5 g/dL Low 12.0-15.0 [facility] Immature granulocytes/100 WB C Auto (Bld)Ordered By: Jennifer Gordon on 2025 Immature granulocytes/100 WBC (Bld) 0.500 % 0.0-0.9 [facility] Comment on above: IG% - Immature Granu locytes (promyelocytes, myelocytes and metamyelocytes) > 1% indicates that a LEFT SHIFT is Present. Ketones Test strip Ql (U)Ord ered By: Jennifer Gordon on 2025 Ketones Ql (U) Negative Negative [facility] LDL calc ser/plasOrdered By: Jennifer Gordon on 2025 Cholesterol in LDL [Mass/Vol] 137 mg/dL [facility] Comment on above: Fqwjnivtfn=985-275 m g/dL & Higher Kwij=953 mg/dL or greater Laboratory - Chemistry and C hemistry - challengeOrdered By: Jennifer Gordon on 2025 AST [Catalytic activity/Vol] 27 U/L <32 [facility] Lipid Profileon 2025 CHOL:HDL 4.76 Normal [facility] Comment on above: Performed By: #### L 100.0100, L500.4100, L501.9985, L500.4050 ####[facility] [address] [place], [address] Cholesterol [Mass/Vol] 214 mg/dL High <=200 [facility] Comment on above: Result Comment: Chol esterol level, Desirable <200 mg/dLBorderline high cholesterol 200-239 mg/dLHigh cholesterol >=240 mg/dLRecommendations of the NCEP Adult Treatment Panel for thefollowing risk-cutoff thresholds for the [place] Americancarondelet st. joseph's hospitalulation. Performed By: #### L 100.0100, L500.4100, L501.9985, L500.4050 ####[facility] [address] [place], [address] Cholesterol in HDL [Mass/Vol] 45 mg/dL Normal [facility] Comment on above: Result Comment: Vibha onal Cholesterol Education Program (NCEP) guidelines:<40 mg/dL: Low HDL-cholesterol (major risk factor for CHD)>= 60 mg/dL: High HDL-cholesterol (negative risk factor forCHD)HDL-cholesterol is affected by a number of factors, e.g.smoking, exercise, hormones, sex and age. Performed By: #### L 100.0100, L500.4100, L501.9985, L500.4050 ####[facility] [address] [place], [address] Cholesterol in LDL [Mass/Vol] 137 mg/dL Normal [facility] Comment on above: Result Comment: Bord omcrnp=506-507 mg/dL Higher Cfqh=210 mg/dL or greater Performed By: #### L 100.0100, L500.4100, L501.9985, L500.4050 ####[facility] [address] [place], [address] Cholesterol in VLDL [Mass/Vol] 32 mg/dL Normal 5-40 [facility] Comment on above: Performed By: #### L 100.0100, L500.4100, L501.9985, L500.4050 ####[facility] [address] [place], [address] Triglyceride [Mass/Vol] 160 mg/dL Normal [facility] Comment on above: Result Comment: The drugs N-Acetylcysteine and Metamizole may falselydepress this assay.Normal range: <150 mg/dLBorderline High: 150-199 mg/dLHigh: 200-499 mg/dLVery High: >500 mg/dL Performed By: #### L 100.0100, L500.4100, L501.9985, L500.4050 ####[facility] [address] [place], [place], [address] MCV (mean corpuscular volume ) determinationOrdered By: Jennifer Gordon on 2025 MCV (RBC) [Entitic vol] 86.2 fL 81-99 [facility] Mean corpuscular hemoglobin (MCH) determinationOrdered By: Jennifer Gordon on 2025 MCH (RBC) [Entitic mass] 25.9 pg Low 27.0-32.0 [facility] Mean corpuscular hemoglobin concentration (MCHC) determinationOrdered By: Jennifer Gordon on 2025 MCHC (RBC) [Mass/Vol] 30.1 g/dL Low 32-36 [facility] Mean platelet volume determi nationOrdered By: Jennifer Gordon on 2025 Platelet mean volume (Bld) [Entitic vol] 10.5 fL 6.2-12.0 [facility] Microscopic analysis of urin e for red blood cells (RBC)Ordered By: Jennifer Gordon on 2025 Microscopic analysis of urine for red blood cells (RBC) 0-5 SEEN /hpf 0-5 [facility] Monocyte percentageOrdered B y: Jennifer Gordon on 2025 Monocytes/100 WBC (Bld) 7.0 % 0-10 [facility] Mucus LM Ql (Urine sed)Order ed By: Jennifer Gordon on 2025 Mucus Ql (Urine sed) 0 SEEN /hpf [facility] Neutrophil percentageOrdered By: Jennifer Gordon on 2025 Neutrophils/100 WBC (Bld) 71.2 % High 47-70 [facility] Nitrite Test strip Ql (U)Ord ered By: Jennifer Gordon on 2025 Nitrite Ql (U) Negative Negative [facility] Nucleated red blood cell per centageOrdered By: Jennifer Gordon on 2025 Nucleated RBC/100 WBC (Bld) [Ratio] 0 % 0-5 [facility] Platelet countOrdered By: Felipe Gordon on 2025 Platelets (Bld) [#/Vol] 347 10*3/uL 150-450 [facility] Potassium measurement (mass/ volume)Ordered By: Jennifer Gordon on 2025 Potassium (Unsp spec) [Mass/Vol] 5.6 mmol/L High 3.3-5.1 [facility] Protein Test strip Ql (U)Ord ered By: Jennifer Gordon on 2025 Protein Ql (U) 100 mg/dl High Negative [facility] RBC Auto (Bld) [#/Vol]Ordere d By: Jennifer Gordon on 2025 RBC (Bld) [#/Vol] 4.05 10*6/uL Low 4.2-5.4 [facility] Screening total cholesterol/ high density lipoprotein (HDL) cholesterol ratioOrdered By: Jennifer Gordon on 2025 Cholesterol.total/Camille sterol in HDL [Mass ratio] 4.76 {ratio} [facility] Serum creatinine measurement (mass/volume)Ordered By: Jennifer Gordon on 2025 Creatinine [Mass/Vol] 1.47 mg/dL High 0.70-1.20 [facility] Serum globulin measurementOr dered By: Jennifer Gordon on 2025 Globulin (S) [Mass/Vol] 3.3 g/dL 2.2-4.2 [facility] Serum glucose measurement (m ass/volume)Ordered By: Jennifer Gordon on 2025 Glucose [Mass/Vol] 98 mg/dL 70-99 [facility] Serum or plasma alanine hester otransferase (ALT) measurementOrdered By: Jennifer Gordon on 2025 ALT [Catalytic activity/Vol] 27 U/L <35 [facility] Serum or plasma albumin marivel urement (mass/volume)Ordered By: Jennifer Gordon on 2025 Albumin [Mass/Vol] 4.2 g/dL 3.4-4.8 [facility] Serum or plasma albumin/glob ulin mass ratioOrdered By: Jennifer Gordon on 2025 Albumin/Globulin [Mass ratio] 1.3 {ratio} 0.9-2.4 [facility] Serum or plasma alkaline wai sphatase measurementOrdered By: Jennifer Gordon on 2025 ALP [Catalytic activity/Vol] 80 U/L 35-104 [facility] Serum or plasma calcium marivel urement (mass/volume)Ordered By: Jennifer Gordon on 2025 Calcium [Mass/Vol] 9.5 mg/dL 7.6-11.0 [facility] Serum or plasma cholesterol in HDL measurement (mass/volume)Ordered By: Jennifer Gordon on 2025 Cholesterol in HDL [Mass/Vol] 45 mg/dL >40 [facility] Comment on above: National Cholesterol Education Program (NCEP) guidelines:<40 mg/dL: Low HDL-cholesterol (major risk factor for CHD)>= 60 mg/dL: High HDL-cholesterol (negative risk factor for CHD)HDL-cholesterol is affected by a number of factors, e.g. smoking, exercise, hormones, sex and age. Serum or plasma cholesterol measurement (mass/volume)Ordered By: Jennifer Gordon on 2025 Cholesterol [Mass/Vol] 214 mg/dL High <201 [facility] Comment on above: Cholesterol level, D esirable <200 mg/dLBorderline high cholesterol 200-239 mg/dLHigh cholesterol >=240 mg/dLRecommendations of the NCEP Adult Treatment Panel for the following risk-cutoff thresholds for the [place] population. Serum or plasma urea nitroge n measurement (mass/volume)Ordered By: Jennifer Gordon on 2025 Urea nitrogen [Mass/Vol] 20 mg/dL High 4-19 [facility] Sodium levelOrdered By: Ashley Gordon on 2025 Sodium [Moles/Vol] 135 mmol/L 133-145 [facility] Squamous epithelial cells de tection in urine sediment by light microscopyOrdered By: Jennifer Gordon on 2025 Epithelial cells.squamous LM Ql (Urine sed) 0-5 SEEN /hpf - [facility] TSH DL <= 0.005 mIU/L QnOrde red By: Jennifer Gordon on 2025 TSH Qn 0.566 uIU/mL 0.300-4.200 [facility] Thyroid Stim Hormone (TSH)on 2025 TSH 0.566 uIU/mL Normal 0.300-4.200 [facility] Comment on above: Performed By: #### L 501.9520 ####[facility] [address] [place], [place], [id number] Total proteinOrdered By: Amadou Gordon on 2025 Protein [Mass/Vol] 7.5 g/dL 5.9-8.4 [facility] Triglycerides measurementOrd ered By: Jennifer Gordon on 2025 Triglyceride [Mass/Vol] 160 mg/dL <199 [facility] Comment on above: The drugs N-Acetylcy steine and Metamizole may falsely depress this assay. Normal range: <150 mg/dLBorderline High: 150-199 mg/dLHigh: 200-499 mg/dLVery High: >500 mg/dL Urinalysis, Completeon 04-16 EPI,SQUAMOUS 0-5 SEEN Normal 03-15 [facility] Comment on above: Order Comment: COLLE CTOR TO SPECIFY Performed By: #### L 400.0001 ####[facility] [address] [place], [address] RBC 0-5 SEEN Normal 0-5 [facility] Comment on above: Order Comment: MAE CTOR TO SPECIFY Performed By: #### L 400.0001 ####[facility] [address] [place], [address] WBC 0-5 SEEN Normal 0-5 [facility] Comment on above: Order Comment: MAE CTOR TO SPECIFY Performed By: #### L 400.0001 ####[facility] [address] [place], [address] BACTERIA 0 SEEN Normal None Seen [facility] Comment on above: Order Comment: MAE CTOR TO SPECIFY Performed By: #### L 400.0001 ####[facility] [address] [place], [address] Mucus Ql (Urine sed) 0 SEEN Normal [facility] Comment on above: Order Comment: MAE CTOR TO SPECIFY Performed By: #### L 400.0001 ####[facility] [address] [place], [address] Urine clarityOrdered By: Amadou Gordon on 2025 Clarity (U) Clear Clear [facility] Urine color determinationOrd ered By: Jennifer Gordon on 2025 Color (U) Straw Yellow [facility] Urine glucose detectionOrder ed By: Jennifer Gordon on 2025 Glucose Ql (U) Normal mg/dl Normal [facility] Urine leukocyte esterase det ection by dipstickOrdered By: Jennifer Gordon on 2025 Leukocyte esterase Test strip Ql (U) Negative Negative [facility] Urine pHOrdered By: Jennifer ayala on 2025 pH (U) 6.5 [pH] 5.0 - 8.0 [facility] Urine sediment bacteria coun t by microscopy (number/high power field)Ordered By: Jennifer Gordon on 2025 Bacteria LM.HPF (Urine sed) [#/Area] 0 /[HPF] None Seen [facility] Urine specific gravity measu rementOrdered By: Jennifer Gordon on 2025 Specific gravity (U) [Rel density] 1.010 1.002-1.030 [facility] Urine urobilinogen measureme ntOrdered By: Jennifer Gordon on 2025 Urobilinogen Ql (U) Normal mg/dl Normal [facility] White blood cell (WBC) count Ordered By: Jennifer Gordon on 2025 WBC (Bld) [#/Vol] 10.9 10*3/uL 4.4-11.0 [facility] White blood cell countOrdere d By: Jennifer Gordon on 2025 White blood cell count 0-5 SEEN /hpf 0-5 [facility] Internal Medicine Office Vis iton 04-15-2025 Internal Medicine Office Visit Normal [facility] MR CARDIAC MORPHOLOGY WITH A ND WITHOUT CONTRAST WITHOUT VELOCITY FLOWon 04-07-2025 MR CARDIAC MORPHOLOGY WITH AND WITHOUT CONTRAST WITHOUT VELOCITY FLOW [facility] CMR Report Name: RADHA SHAFER Eli [...] None Karishma (more content not included)... Normal [facility] Comment on above: Order Comment: Injur y/Trauma or Illness?:Illness/Other How long have you had these symptoms (acute/chronic)?:Chronic Reason for exam?:A-fib [facility] TO READ Type of Exam?:Initial Additional signs and symptoms?:n POC CREATININE - RALSon Creatinine [Mass/Vol] 1.5 mg/dL High 0.6-1.2 [facility] Comment on above: Performed By: #### 4 6932 #### LAB [address] [address] Maurice Coello M.D. [id number] Pulmonary Visit Reporton Pulmonary Visit Report Normal [facility] Orthopedic Visit Reporton Orthopedic Visit Report Normal [facility] Neurology Visit Reporton Neurology Visit Report Normal [facility] L/S Spine Min 4 Viewson 02-05 L/S Spine Min 4 Views Normal [facility] Orthopedic Visit Reporton Orthopedic Visit Report Normal [facility] Upper Ext Joint Only(Routine )on 02-25-2025 Upper Ext Joint Only(Routine) Normal [facility] BASIC METABOLIC PANELon 02-04 Anion gap [Moles/Vol] 16 mmol/L Normal 10-20 [facility] Comment on above: Order Comment: [facility] has implemented the eGFR calculation approach that does not have a coefficient for race that conforms to the NKF-ASN Task Force Recommendations. Performed By: #### 4 6124 #### [facility] [address] [place], [place] [address] Maurice Coello M.D. [id number] Calcium [Mass/Vol] 9.1 mg/dL Normal 8.4-10.2 [facility] Comment on above: Order Comment: [facility] has implemented the eGFR calculation approach that does not have a coefficient for race that conforms to the NKF-ASN Task Force Recommendations. Performed By: #### 4 6124 #### [facility] [address] [place], [place] [address] Maurice Coello M.D. [id number] Chloride [Moles/Vol] 99 mmol/L Normal 98-108 [facility] Comment on above: Order Comment: [facility] has implemented the eGFR calculation approach that does not have a coefficient for race that conforms to the NKF-ASN Task Force Recommendations. Performed By: #### 4 6124 #### [facility] [address] [place], [place] [address] Maurice Coello M.D. [id number] Creatinine [Mass/Vol] 1.70 mg/dL High 0.60-1.10 [facility] Comment on above: Order Comment: [facility] has implemented the eGFR calculation approach that does not have a coefficient for race that conforms to the NKF-ASN Task Force Recommendations. Performed By: #### 4 6124 #### [facility] [address] [address] Maurice Coello M.D. [id number] EGFR 33 mL/min/1.73 m2 Low >=60 [facility] Comment on above: Order Comment: [facility] has implemented the eGFR calculation approach that does not have a coefficient for race that conforms to the NKF-ASN Task Force Recommendations. Result Comment: Ericka mated GFR was calculated using the 2020 CKD-EPI creatinine equation. Performed By: #### 4 6124 #### [facility] [address] [id number] Maurice Coello M.D. [id number] Glucose [Mass/Vol] 119 mg/dL High 65-99 [facility] Comment on above: Order Comment: [facility] has implemented the eGFR calculation approach that does not have a coefficient for race that conforms to the NKF-ASN Task Force Recommendations. Performed By: #### 4 6124 #### [facility] [address] [id number] Maurice Coello M.D. [id number] HCO3 (Bld) [Moles/Vol] 26 mmol/L Normal 21-32 [facility] Comment on above: Order Comment: [facility] has implemented the eGFR calculation approach that does not have a coefficient for race that conforms to the NKF-ASN Task Force Recommendations. Performed By: #### 4 6124 #### LAB [address] [id number] Maurice Coello M.D. [id number] Potassium [Moles/Vol] 3.8 mmol/L Normal 3.5-5.1 [facility] Comment on above: Order Comment: [facility] has implemented the eGFR calculation approach that does not have a coefficient for race that conforms to the NKF-ASN Task Force Recommendations. Performed By: #### 4 6124 #### LAB [address] [place], [place] [address] Maurice Coello M.D. [id number] Sodium [Moles/Vol] 137 mmol/L Normal 135-145 [facility] Comment on above: Order Comment: [facility] has implemented the eGFR calculation approach that does not have a coefficient for race that conforms to the NKF-ASN Task Force Recommendations. Performed By: #### 4 6124 #### LAB [address] [address] Maurice Coello M.D. [id number] Urea nitrogen [Mass/Vol] 22 mg/dL Normal 8-25 [facility] Comment on above: Order Comment: [facility] has implemented the eGFR calculation approach that does not have a coefficient for race that conforms to the NKF-ASN Task Force Recommendations. Performed By: #### 4 6124 #### LAB [address] [address] Maurice Coello M.D. [id number] Urea nitrogen/Creatinine [Mass ratio] 12.9 mg/mg Normal 10.0-20.0 [facility] Comment on above: Order Comment: [facility] has implemented the eGFR calculation approach that does not have a coefficient for race that conforms to the NKF-ASN Task Force Recommendations. Performed By: #### 4 6124 #### LAB [address] [place], [place] [address] Maurice Coello M.D. [id number] Basic metabolic 2000 panelon 02-18-2025 Anion gap [Moles/Vol] 16 mmol/L 10 - 2 0 mmol/L [facility] Calcium [Mass/Vol] 9.1 mg/dL 8.4 - 10. 2 mg/dL [facility] Chloride [Moles/Vol] 99 mmol/L 98 - 10 8 mmol/L [facility] Creatinine [Mass/Vol] 1.7 mg/dL High 0.60 - 1.20 mg/dL [facility] GFR/1.73 sq M.predicted CKD-EPI (S/P/Bld) [Vol rate/Area] 33 Low - PINF [facility] Comment on above: Estimated GFR was ca lculated using the 2020 CKD-EPI creatinine equation. Glucose [Mass/Vol] 119 mg/dL High 65 - 99 mg/dL [facility] HCO3 [Moles/Vol] 26 mmol/L 21 - 32 mmol/L [facility] Interpretation and review of laboratory results Abnormal [facility] Potassium [Moles/Vol] 3.8 mmol/L 3.5 - 5.1 mmol/L [facility] Sodium [Moles/Vol] 137 mmol/L 135 - 145 mmol/L [facility] Urea nitrogen [Mass/Vol] 22 mg/dL 8 - 25 mg/dL [facility] Urea nitrogen/Creatinine [Mass ratio] 12.9 mg/mg 10.0 - 20.0 [facility] has implemented the eGFR calculation approach that does not have a coefficient for race that conforms to the NKF-ASN Task Force Recommendations. [facility] CBC Auto Differentialon 02-04 Basophils (Bld) [#/Vol] 0.03 10*3/uL [facility] Basophils/100 WBC (Bld) 0.3 % [facility] Eosinophils (Bld) [#/Vol] 0.09 10*3/uL [facility] Eosinophils/100 WBC (Bld) 1 % [facility] Erythrocyte distribution width (RBC) [Entitic vol] 14.2 % 11.6 - 14.8 % [facility] Hematocrit (Bld) [Volume fraction] 33.1 % Low 36.0 - 46.0 % [facility] Hemoglobin (Bld) [Mass/Vol] 9.9 g/dL Low 12.0 - 16.0 g/dL [facility] Immature granulocytes (Bld) [#/Vol] 0.16 10*3/uL [facility] Immature granulocytes/100 WBC (Bld) 1.7 % [facility] Comment on above: The IG parameter is the percentage of metamyelocytes, myelocytes and promyelocytes. An immature granulocyte count (IG) of 1% or more suggests the possibility of infection, an IG count of 3% is very likely related to an infection. Interpretation and review of laboratory results Abnormal [facility] Lymphocytes (Bld) [#/Vol] 1.29 10*3/uL [facility] Lymphocytes/100 WBC (Bld) 13.8 % [facility] MCH (RBC) [Entitic mass] 25.8 pg Low 26.0 - 34.0 pg [facility] MCHC (RBC) [Mass/Vol] 29.9 g/dL Low 31.0 - 37.0 g/dL [facility] MCV (RBC) [Entitic vol] 86.4 fL 80.0 - 100.0 fL [facility] Monocytes (Bld) [#/Vol] 0.6 10*3/uL [facility] Monocytes/100 WBC (Bld) 6.4 % [facility] Neutrophils (Bld) [#/Vol] 7.15 10*3/uL High [facility] Neutrophils/100 WBC (Bld) 76.8 % [facility] Nucleated RBC (Bld) [#/Vol] 0 10*3/uL [facility] Nucleated RBC/100 WBC (Bld) [Ratio] 0 % [facility] Platelet mean volume (Bld) [Entitic vol] 9.9 fL 9.4 - 12.4 fL [facility] Platelets (Bld) [#/Vol] 277 10*3/uL [facility] RBC (Bld) [#/Vol] 3.83 10*6/uL Low [facility] WBC (Bld) [#/Vol] 9.32 10*3/uL [facility] CBC WITH AUTO DIFFERENTIALon 02-18-2025 AUTO NRBC 0.0 % Normal [facility] Comment on above: Performed By: #### L [id number] ####[facility] LAB [address] [place], [place] [address] Maurice Coello M.D. [id number] AUTO NRBC ABS COUNT 0.00 K/mcL Normal 0.00-0.00 [facility] Comment on above: Performed By: #### L [id number] ####[facility] LAB [address] [address] Maurice Coello M.D. [id number] BASOPHILS ABSOLUTE COUNT 0.03 K/mcL Normal 0.00-0.30 [facility] Comment on above: Performed By: #### L [id number] #### LAB [address] [address] Maurice Coello M.D. [id number] Basophils/100 WBC (Bld) 0.3 % Normal [facility] Comment on above: Performed By: #### L [id number] #### LAB [address] [address] Maurice Coello M.D. [id number] Eosinophils (Bld) [#/Vol] 0.09 10*3/uL Normal 0.00-0.50 [facility] Comment on above: Performed By: #### L [id number] #### LAB [address] [place] [address] Maurice Coello M.D. [id number] Eosinophils/100 WBC (Bld) 1.0 % Normal [facility] Comment on above: Performed By: #### L [id number] #### LAB [address] [place] [address] Maurice Coello M.D. [id number] Erythrocyte distribution width (RBC) [Ratio] 14.2 % Normal 11.6-14.8 [facility] Comment on above: Performed By: #### L [id number] #### LAB [address] [place] [address] Maurice Coello M.D. [id number] Hematocrit (Bld) [Volume fraction] 33.1 % Low 36.0-46.0 [facility] Comment on above: Performed By: #### L [id number] #### LAB [address] [place] [address] Maurice Coello M.D. [id number] Hemoglobin (Bld) [Mass/Vol] 9.9 g/dL Low 12.0-16.0 [facility] Comment on above: Performed By: #### L [id number] #### LAB [address] [address] Maurice Coello M.D. [id number] IG ABSOLUTE 0.16 K/mcL Normal 0.00-0.30 [facility] Comment on above: Performed By: #### L [id number] #### LAB [address] [address] Maurice Coello M.D. [id number] IG PERCENT 1.70 % [facility] Comment on above: Result Comment: The IG parameter is the percentage of metamyelocytes, myelocytes and promyelocytes. An immature granulocyte count (IG) of 1% or more suggests the possibility of infection, an IG count of 3% is very likely related to an infection. Performed By: #### L [id number] #### LAB [address] [address] Maurice Coello M.D. [id number] Lymphocytes (Bld) [#/Vol] 1.29 10*3/uL Normal 0.90-4.00 [facility] Comment on above: Performed By: #### L [id number] #### LAB [address] [address] Maurice Coello M.D. [id number] Lymphocytes/100 WBC (Bld) 13.8 % [facility] Comment on above: Performed By: #### L [id number] #### LAB [address] [address] Maurice Coello M.D. [id number] MCH (RBC) [Entitic mass] 25.8 pg Low 26.0-34.0 [facility] Comment on above: Performed By: #### L [id number] #### LAB [address] [address] Maurice Coello M.D. [id number] MCV (RBC) [Entitic vol] 86.4 fL Normal 80.0-100.0 [facility] Comment on above: Performed By: #### L [id number] #### LAB [address] [place] [address] Maurice Coello M.D. [id number] MEAN CORPUSCULAR HEMOGLOBIN CONC 29.9 g/dL Low 31.0-37.0 [facility] Comment on above: Performed By: #### L [id number] #### LAB [address] [address] Maurice Coello M.D. [id number] Monocytes (Bld) [#/Vol] 0.60 10*3/uL Normal 0.30-0.90 [facility] Comment on above: Performed By: #### L [id number] ####[facility] LAB [address] [address] Maurice Coello M.D. [id number] Monocytes/100 WBC (Bld) 6.4 % Normal [facility] Comment on above: Performed By: #### L [id number] #### LAB [address] [address] Maurice Coello M.D. [id number] NEUTROPHILS ABSOLUTE COUNT 7.15 K/mcL High 1.70-7.00 [facility] Comment on above: Performed By: #### L [id number] #### LAB [address] [address] Maurice Coello M.D. [id number] Neutrophils/100 WBC (Bld) 76.8 % Normal [facility] Comment on above: Performed By: #### L [id number] #### LAB [address] [place] [address] Maurice Coello M.D. [id number] Platelet mean volume (Bld) [Entitic vol] 9.9 fL Normal 9.4-12.4 [facility] Comment on above: Performed By: #### L [id number] #### LAB [address] [place] [address] Maurice Coello M.D. [id number] Platelets (Bld) [#/Vol] 277 10*3/uL Normal 150-400 [facility] Comment on above: Performed By: #### L [id number] #### LAB [address] [place] [address] Maurice Coello M.D. [id number] RBC (Bld) [#/Vol] 3.83 10*6/uL Low 4.00-5.20 [facility] Comment on above: Performed By: #### L [id number] ####[facility] LAB [address] [place], [place] [address] Maurice Coello M.D. [id number] WBC (Bld) [#/Vol] 9.32 10*3/uL Normal 4.50-11.00 [facility] Comment on above: Performed By: #### L [id number] ####[facility] LAB [address] [address] Maurice Coello M.D. [id number] CK [Catalytic activity/Vol]o n 02-18-2025 Interpretation and review of laboratory results Abnormal [facility] CPKon 02-18-2025 CPK 539 U/L High 40-170 [facility] Comment on above: Performed By: #### 4 [id number] #### MH LAB [address] [address] Maurice Coello M.D. [id number] CPK NO MBon 02-18-2025 CK [Catalytic activity/Vol] 539 U/L High 40 - 170 U/L [facility] EKGon 02-18-2025 [facility] Glucose (Bld) [Mass/Vol]on 0 02-18-2025 Glucose [Mass/Vol] 115 mg/dL High 65 - 99 mg/dL [facility] Interpretation and review of laboratory results Abnormal [facility] POC GLUCOSE - RALSon 025 Glucose [Mass/Vol] 115 mg/dL High 65-99 [facility] Comment on above: Performed By: #### 4 6932 #### MH LAB [address] [address] Maurice Coello M.D. [id number] BASIC METABOLIC PANELon - Anion gap [Moles/Vol] 13 mmol/L Normal 10-20 [facility] Comment on above: Order Comment: Injur y/Trauma or Illness?:Illness/Other How long have you had these symptoms (acute/chronic)?:Acute Reason for exam?:sob. Hx of COPD History of cancer?:unknown Surgeries, chemotherapy, or radiation?:cholecystectomy, hysterectomy, oophrectomy, left knee replacement Type of Exam?:Initial Additional signs and symptoms?:. Performed By: #### 4 6106 #### LAB [address] [address] Maurice Coello M.D. [id number] Calcium [Mass/Vol] 8.5 mg/dL Normal 8.4-10.2 [facility] Comment on above: Order Comment: Injur y/Trauma or Illness?:Illness/Other How long have you had these symptoms (acute/chronic)?:Acute Reason for exam?:sob. Hx of COPD History of cancer?:unknown Surgeries, chemotherapy, or radiation?:cholecystectomy, hysterectomy, oophrectomy, left knee replacement Type of Exam?:Initial Additional signs and symptoms?:. Performed By: #### 4 6151 #### LAB [address] [address] Maurice Coello M.D. [id number] Chloride [Moles/Vol] 104 mmol/L Normal 98-108 [facility] Comment on above: Order Comment: Injur y/Trauma or Illness?:Illness/Other How long have you had these symptoms (acute/chronic)?:Acute Reason for exam?:sob. Hx of COPD History of cancer?:unknown Surgeries, chemotherapy, or radiation?:cholecystectomy, hysterectomy, oophrectomy, left knee replacement Type of Exam?:Initial Additional signs and symptoms?:. Performed By: #### 4 6168 #### LAB [address] [address] Maurice Coello M.D. [id number] Creatinine [Mass/Vol] 1.48 mg/dL High 0.60-1.10 [facility] Comment on above: Order Comment: Injur y/Trauma or Illness?:Illness/Other How long have you had these symptoms (acute/chronic)?:Acute Reason for exam?:sob. Hx of COPD History of cancer?:unknown Surgeries, chemotherapy, or radiation?:cholecystectomy, hysterectomy, oophrectomy, left knee replacement Type of Exam?:Initial Additional signs and symptoms?:. Performed By: #### 4 6147 #### LAB [address] [address] Maurice Coello M.D. [id number] EGFR 39 mL/min/1.73 m2 Low >=60 [facility] Comment on above: Order Comment: Injur y/Trauma or Illness?:Illness/Other How long have you had these symptoms (acute/chronic)?:Acute Reason for exam?:sob. Hx of COPD History of cancer?:unknown Surgeries, chemotherapy, or radiation?:cholecystectomy, hysterectomy, oophrectomy, left knee replacement Type of Exam?:Initial Additional signs and symptoms?:. Result Comment: Ericka mated GFR was calculated using the 2020 CKD-EPI creatinine equation. Performed By: #### 4 6131 #### LAB [address] [address] Maurice Coello M.D. [id number] Glucose [Mass/Vol] 83 mg/dL Normal 65-99 [facility] Comment on above: Order Comment: Injur y/Trauma or Illness?:Illness/Other How long have you had these symptoms (acute/chronic)?:Acute Reason for exam?:sob. Hx of COPD History of cancer?:unknown Surgeries, chemotherapy, or radiation?:cholecystectomy, hysterectomy, oophrectomy, left knee replacement Type of Exam?:Initial Additional signs and symptoms?:. Performed By: #### 4 6109 #### LAB [address] [address] Maurice Coello M.D. [id number] HCO3 (Bld) [Moles/Vol] 25 mmol/L Normal 21-32 [facility] Comment on above: Order Comment: Injur y/Trauma or Illness?:Illness/Other How long have you had these symptoms (acute/chronic)?:Acute Reason for exam?:sob. Hx of COPD History of cancer?:unknown Surgeries, chemotherapy, or radiation?:cholecystectomy, hysterectomy, oophrectomy, left knee replacement Type of Exam?:Initial Additional signs and symptoms?:. Performed By: #### 4 6196 #### LAB [address] [address] Maurice Coello M.D. [id number] Potassium [Moles/Vol] 3.7 mmol/L Normal 3.5-5.1 [facility] Comment on above: Order Comment: Injur y/Trauma or Illness?:Illness/Other How long have you had these symptoms (acute/chronic)?:Acute Reason for exam?:sob. Hx of COPD History of cancer?:unknown Surgeries, chemotherapy, or radiation?:cholecystectomy, hysterectomy, oophrectomy, left knee replacement Type of Exam?:Initial Additional signs and symptoms?:. Performed By: #### 4 6124 #### LAB [address] [address] Maurice oCello M.D. [id number] Sodium [Moles/Vol] 138 mmol/L Normal 135-145 [facility] Comment on above: Order Comment: Injur y/Trauma or Illness?:Illness/Other How long have you had these symptoms (acute/chronic)?:Acute Reason for exam?:sob. Hx of COPD History of cancer?:unknown Surgeries, chemotherapy, or radiation?:cholecystectomy, hysterectomy, oophrectomy, left knee replacement Type of Exam?:Initial Additional signs and symptoms?:. Performed By: #### 4 6125 #### LAB [address] [address] Maurice Coello M.D. [id number] Urea nitrogen [Mass/Vol] 17 mg/dL Normal 8-25 [facility] Comment on above: Order Comment: Injur y/Trauma or Illness?:Illness/Other How long have you had these symptoms (acute/chronic)?:Acute Reason for exam?:sob. Hx of COPD History of cancer?:unknown Surgeries, chemotherapy, or radiation?:cholecystectomy, hysterectomy, oophrectomy, left knee replacement Type of Exam?:Initial Additional signs and symptoms?:. Performed By: #### 4 6103 #### LAB [address] [address] Maurice Coello M.D. [id number] Urea nitrogen/Creatinine [Mass ratio] 11.5 mg/mg Normal 10.0-20.0 [facility] Comment on above: Order Comment: Injur y/Trauma or Illness?:Illness/Other How long have you had these symptoms (acute/chronic)?:Acute Reason for exam?:sob. Hx of COPD History of cancer?:unknown Surgeries, chemotherapy, or radiation?:cholecystectomy, hysterectomy, oophrectomy, left knee replacement Type of Exam?:Initial Additional signs and symptoms?:. Performed By: #### 4 6124 ####[facility] LAB [address] [place], [place] [address] Maurice Coello M.D. [id number] Basic metabolic 2000 panelon 02-17-2025 Anion gap [Moles/Vol] 13 mmol/L 10 - 2 0 mmol/L [facility] Calcium [Mass/Vol] 8.5 mg/dL 8.4 - 10. 2 mg/dL [facility] Chloride [Moles/Vol] 104 mmol/L 98 - 10 8 mmol/L [facility] Creatinine [Mass/Vol] 1.48 mg/dL High 0.60 - 1.20 mg/dL [facility] GFR/1.73 sq M.predicted CKD-EPI (S/P/Bld) [Vol rate/Area] 39 Low - PINF [facility] Comment on above: Estimated GFR was ca lculated using the 2020 CKD-EPI creatinine equation. Glucose [Mass/Vol] 83 mg/dL 65 - 99 mg/dL [facility] HCO3 [Moles/Vol] 25 mmol/L 21 - 32 mmol/L [facility] Potassium [Moles/Vol] 3.7 mmol/L 3.5 - 5.1 mmol/L [facility] Sodium [Moles/Vol] 138 mmol/L 135 - 145 mmol/L [facility] Urea nitrogen [Mass/Vol] 17 mg/dL 8 - 25 mg/dL [facility] Urea nitrogen/Creatinine [Mass ratio] 11.5 mg/mg 10.0 - 20.0 [facility] has implemented the eGFR calculation approach that does not have a coefficient for race that conforms to the NKF-ASN Task Force Recommendations. [facility] CBC Auto Differentialon 02-04 Basophils (Bld) [#/Vol] 0.04 10*3/uL [facility] Basophils/100 WBC (Bld) 0.5 % [facility] Eosinophils (Bld) [#/Vol] 0.06 10*3/uL [facility] Eosinophils/100 WBC (Bld) 0.8 % [facility] Erythrocyte distribution width (RBC) [Entitic vol] 14.1 % 11.6 - 14.8 % [facility] Hematocrit (Bld) [Volume fraction] 31.4 % Low 36.0 - 46.0 % [facility] Hemoglobin (Bld) [Mass/Vol] 9.3 g/dL Low 12.0 - 16.0 g/dL [facility] Immature granulocytes (Bld) [#/Vol] 0.13 10*3/uL [facility] Immature granulocytes/100 WBC (Bld) 1.7 % [facility] Comment on above: The IG parameter is the percentage of metamyelocytes, myelocytes and promyelocytes. An immature granulocyte count (IG) of 1% or more suggests the possibility of infection, an IG count of 3% is very likely related to an infection. Interpretation and review of laboratory results Abnormal [facility] Lymphocytes (Bld) [#/Vol] 1.54 10*3/uL [facility] Lymphocytes/100 WBC (Bld) 19.6 % [facility] MCH (RBC) [Entitic mass] 25.9 pg Low 26.0 - 34.0 pg [facility] MCHC (RBC) [Mass/Vol] 29.6 g/dL Low 31.0 - 37.0 g/dL [facility] MCV (RBC) [Entitic vol] 87.5 fL 80.0 - 100.0 fL [facility] Monocytes (Bld) [#/Vol] 0.72 10*3/uL [facility] Monocytes/100 WBC (Bld) 9.2 % [facility] Neutrophils (Bld) [#/Vol] 5.35 10*3/uL [facility] Neutrophils/100 WBC (Bld) 68.2 % [facility] Nucleated RBC (Bld) [#/Vol] 0 10*3/uL [facility] Nucleated RBC/100 WBC (Bld) [Ratio] 0 % [facility] Platelet mean volume (Bld) [Entitic vol] 10.2 fL 9.4 - 12.4 fL [facility] Platelets (Bld) [#/Vol] 221 10*3/uL [facility] RBC (Bld) [#/Vol] 3.59 10*6/uL Low [facility] WBC (Bld) [#/Vol] 7.84 10*3/uL [facility] CBC WITH AUTO DIFFERENTIALon 02-17-2025 AUTO NRBC 0.0 % Normal [facility] Comment on above: Performed By: #### L [id number] #### LAB [address] [address] Maurice Coello M.D. [id number] AUTO NRBC ABS COUNT 0.00 K/mcL Normal 0.00-0.00 [facility] Comment on above: Performed By: #### L [id number] #### LAB [address] [address] Maurice Coello M.D. [id number] BASOPHILS ABSOLUTE COUNT 0.04 K/mcL Normal 0.00-0.30 [facility] Comment on above: Performed By: #### L [id number] #### LAB [address] [address] Maurice Coello M.D. [id number] Basophils/100 WBC (Bld) 0.5 % Normal [facility] Comment on above: Performed By: #### L [id number] #### LAB [address] [address] Maurice Coello M.D. [id number] Eosinophils (Bld) [#/Vol] 0.06 10*3/uL Normal 0.00-0.50 [facility] Comment on above: Performed By: #### L [id number] #### LAB [address] [place] [address] Maurice Coello M.D. [id number] Eosinophils/100 WBC (Bld) 0.8 % Normal [facility] Comment on above: Performed By: #### L [id number] #### LAB [address] [address] Maurice Coello M.D. [id number] Erythrocyte distribution width (RBC) [Ratio] 14.1 % Normal 11.6-14.8 [facility] Comment on above: Performed By: #### L [id number] #### LAB [address] [place] [address] Maurice Coello M.D. [id number] Hematocrit (Bld) [Volume fraction] 31.4 % Low 36.0-46.0 [facility] Comment on above: Performed By: #### L [id number] #### LAB [address] [address] Maurice Coello M.D. [id number] Hemoglobin (Bld) [Mass/Vol] 9.3 g/dL Low 12.0-16.0 [facility] Comment on above: Performed By: #### L [id number] #### LAB [address] [address] Maurice Coello M.D. [id number] IG ABSOLUTE 0.13 K/mcL Normal 0.00-0.30 [facility] Comment on above: Performed By: #### L [id number] #### LAB [address] [address] Maurice Coello M.D. [id number] IG PERCENT 1.70 % Normal [facility] Comment on above: Result Comment: The IG parameter is the percentage of metamyelocytes, myelocytes and promyelocytes. An immature granulocyte count (IG) of 1% or more suggests the possibility of infection, an IG count of 3% is very likely related to an infection. Performed By: #### L [id number] #### LAB [address] [address] Maurice Coello M.D. [id number] Lymphocytes (Bld) [#/Vol] 1.54 10*3/uL Normal 0.90-4.00 [facility] Comment on above: Performed By: #### L [id number] #### LAB [address] [address] Maurice Coello M.D. [id number] Lymphocytes/100 WBC (Bld) 19.6 % Normal [facility] Comment on above: Performed By: #### L [id number] #### LAB [address] [place] [address] Maurice Coello M.D. [id number] MCH (RBC) [Entitic mass] 25.9 pg Low 26.0-34.0 [facility] Comment on above: Performed By: #### L [id number] #### LAB [address] [address] Maurice Coello M.D. [id number] MCV (RBC) [Entitic vol] 87.5 fL Normal 80.0-100.0 [facility] Comment on above: Performed By: #### L [id number] #### LAB [address] [address] Maurice Coello M.D. [id number] MEAN CORPUSCULAR HEMOGLOBIN CONC 29.6 g/dL Low 31.0-37.0 [facility] Comment on above: Performed By: #### L [id number] #### LAB [address] [address] Maurice Coello M.D. [id number] Monocytes (Bld) [#/Vol] 0.72 10*3/uL Normal 0.30-0.90 [facility] Comment on above: Performed By: #### L [id number] #### LAB [address] [address] Maurice Coello M.D. [id number] Monocytes/100 WBC (Bld) 9.2 % Normal [facility] Comment on above: Performed By: #### L [id number] #### LAB [address] [address] Maurice Coello M.D. [id number] NEUTROPHILS ABSOLUTE COUNT 5.35 K/mcL Normal 1.70-7.00 [facility] Comment on above: Performed By: #### L [id number] #### LAB [address] [address] Maurice Coello M.D. [id number] Neutrophils/100 WBC (Bld) 68.2 % Normal [facility] Comment on above: Performed By: #### L [id number] #### LAB [address] [address] Maurice Coello M.D. [id number] Platelet mean volume (Bld) [Entitic vol] 10.2 fL Normal 9.4-12.4 [facility] Comment on above: Performed By: #### L [id number] ####MH LAB [address] [address] Maurice Coello M.D. [id number] Platelets (Bld) [#/Vol] 221 10*3/uL Normal 150-400 [facility] Comment on above: Performed By: #### L [id number] ####MH LAB [address] [address] Maurice Coello M.D. [id number] RBC (Bld) [#/Vol] 3.59 10*6/uL Low 4.00-5.20 [facility] Comment on above: Performed By: #### L [id number] ####MH LAB [address] [address] Maurice Coello M.D. [id number] WBC (Bld) [#/Vol] 7.84 10*3/uL Normal 4.50-11.00 [facility] Comment on above: Performed By: #### L [id number] #### LAB [address] [address] Maurice Coello M.D. [id number] CPKon 02-17-2025 CPK 1606 U/L High 40-170 [facility] Comment on above: Performed By: #### 4 [id number] #### LAB [address] [address] Maurice Coello M.D. [id number] CPK NO MBon 02-17-2025 CK [Catalytic activity/Vol] 1606 U/L High 40 - 170 U/L [facility] Glucose (Bld) [Mass/Vol]on 0 02-17-2025 Glucose [Mass/Vol] 132 mg/dL High 65 - 99 mg/dL [facility]ation and review of laboratory results Abnormal [facility] Glucose [Mass/Vol] 167 mg/dL High 65 - 99 mg/dL [facility]Health Interpretation and review of laboratory results Abnormal [facility] Glucose [Mass/Vol] 101 mg/dL High 65 - 99 mg/dL [facility] Interpretation and review of laboratory results Abnormal [facility] MAGNESIUM LEVELon 02-17-2025 Magnesium [Mass/Vol] 1.5 mg/dL Low 1.6-2.4 [facility] Comment on above: Performed By: #### 4 6109 #### LAB [address] [id number] Maurice Coello M.D. [id number] Magnesium Levelon 02-17-2025 Magnesium [Mass/Vol] 1.5 mg/dL Low 1.6 - 2 .4 mg/dL [facility] No Panel Informationon 02-17 Interpretation and review of laboratory results Abnormal [facility] POC GLUCOSE - RALSon 025 Glucose [Mass/Vol] 132 mg/dL High [address] [place] [address] Comment on above: Performed By: #### 4 6932 #### LAB [address] [address] Maurice Coello M.D. [id number] Glucose [Mass/Vol] 167 mg/dL High [address] [place] [address] Comment on above: Performed By: #### 4 6932 #### LAB [address] [address] Maurice Coello M.D. [id number] Glucose [Mass/Vol] 101 mg/dL High [address] [place] [address] Comment on above: Performed By: #### 4 6932 #### LAB [address] [address] Maurice Coello M.D. [id number] BASIC METABOLIC PANELon 02-04 Anion gap [Moles/Vol] 13 mmol/L Normal 10-20 [facility] Comment on above: Order Comment: [facility] has implemented the eGFR calculation approach that does not have a coefficient for race that conforms to the NKF-ASN Task Force Recommendations. Performed By: #### 4 6124 ####MH LAB [address] [address] Maurice Coello M.D. [id number] Calcium [Mass/Vol] 8.0 mg/dL Low 8.4-10.2 [facility] Comment on above: Order Comment: [facility] has implemented the eGFR calculation approach that does not have a coefficient for race that conforms to the NKF-ASN Task Force Recommendations. Performed By: #### 4 6124 #### LAB [address] [place], [place] [address] Maurice Coello M.D. [id number] Chloride [Moles/Vol] 106 mmol/L Normal 98-108 [facility] Comment on above: Order Comment: [facility] has implemented the eGFR calculation approach that does not have a coefficient for race that conforms to the NKF-ASN Task Force Recommendations. Performed By: #### 4 6124 #### LAB [address] [address] Maurice Coello M.D. [id number] Creatinine [Mass/Vol] 1.28 mg/dL High 0.60-1.10 [facility] Comment on above: Order Comment: [facility] has implemented the eGFR calculation approach that does not have a coefficient for race that conforms to the NKF-ASN Task Force Recommendations. Performed By: #### 4 6124 #### LAB [address] [address] Maurice Coello M.D. [id number] EGFR 46 mL/min/1.73 m2 Low >=60 [facility] Comment on above: Order Comment: [facility] has implemented the eGFR calculation approach that does not have a coefficient for race that conforms to the NKF-ASN Task Force Recommendations. Result Comment: Ericka mated GFR was calculated using the 2020 CKD-EPI creatinine equation. Performed By: #### 4 6124 #### LAB [address] [address] Maurice Coello M.D. [id number] Glucose [Mass/Vol] 128 mg/dL High 65-99 [facility] Comment on above: Order Comment: [facility] has implemented the eGFR calculation approach that does not have a coefficient for race that conforms to the NKF-ASN Task Force Recommendations. Performed By: #### 4 6124 #### LAB [address] [address] Maurice Coello M.D. [id number] HCO3 (Bld) [Moles/Vol] 22 mmol/L Normal 21-32 [facility] Comment on above: Order Comment: [facility] has implemented the eGFR calculation approach that does not have a coefficient for race that conforms to the NKF-ASN Task Force Recommendations. Performed By: #### 4 6124 #### LAB [address] [address] Maurice Coello M.D. [id number] Potassium [Moles/Vol] 3.9 mmol/L Normal 3.5-5.1 [facility] Comment on above: Order Comment: [facility] has implemented the eGFR calculation approach that does not have a coefficient for race that conforms to the NKF-ASN Task Force Recommendations. Performed By: #### 4 6124 #### LAB [address] [address] Maurice Coello M.D. [id number] Sodium [Moles/Vol] 137 mmol/L Normal 135-145 [facility] Comment on above: Order Comment: [facility] has implemented the eGFR calculation approach that does not have a coefficient for race that conforms to the NKF-ASN Task Force Recommendations. Performed By: #### 4 6124 #### LAB [address] [address] Maurice Coello M.D. [id number] Urea nitrogen [Mass/Vol] 15 mg/dL Normal 8-25 [facility] Comment on above: Order Comment: [facility] has implemented the eGFR calculation approach that does not have a coefficient for race that conforms to the NKF-ASN Task Force Recommendations. Performed By: #### 4 6124 #### LAB [address] [address] Maurice Coello M.D. [id number] Urea nitrogen/Creatinine [Mass ratio] 11.7 mg/mg Normal 10.0-20.0 [facility] Comment on above: Order Comment: [facility] has implemented the eGFR calculation approach that does not have a coefficient for race that conforms to the NKF-ASN Task Force Recommendations. Performed By: #### 4 6124 ####MH LAB [address] [address] Maurice Coello M.D. [id number] Basic metabolic 2000 panelon 02-16-2025 Anion gap [Moles/Vol] 13 mmol/L 10 - 2 0 mmol/L [facility] Calcium [Mass/Vol] 8 mg/dL Low 8.4 - 10. 2 mg/dL [facility] Chloride [Moles/Vol] 106 mmol/L 98 - 10 8 mmol/L [facility] Creatinine [Mass/Vol] 1.28 mg/dL High 0.60 - 1.20 mg/dL [facility] GFR/1.73 sq M.predicted CKD-EPI (S/P/Bld) [Vol rate/Area] 46 Low - PINF [facility] Comment on above: Estimated GFR was ca lculated using the 2020 CKD-EPI creatinine equation. Glucose [Mass/Vol] 128 mg/dL High 65 - 99 mg/dL [facility] HCO3 [Moles/Vol] 22 mmol/L 21 - 32 mmol/L [facility] Interpretation and review of laboratory results Abnormal [facility] Potassium [Moles/Vol] 3.9 mmol/L 3.5 - 5.1 mmol/L [facility] Sodium [Moles/Vol] 137 mmol/L 135 - 145 mmol/L [facility] Urea nitrogen [Mass/Vol] 15 mg/dL 8 - 25 mg/dL [facility] Urea nitrogen/Creatinine [Mass ratio] 11.7 mg/mg 10.0 - 20.0 [facility] has implemented the eGFR calculation approach that does not have a coefficient for race that conforms to the NKF-ASN Task Force Recommendations. [facility] CBC Auto Differentialon 02-04 Basophils (Bld) [#/Vol] 0.04 10*3/uL [facility] Basophils/100 WBC (Bld) 0.5 % [facility] Eosinophils (Bld) [#/Vol] 0.03 10*3/uL [facility] Eosinophils/100 WBC (Bld) 0.4 % [facility] Erythrocyte distribution width (RBC) [Entitic vol] 13.9 % 11.6 - 14.8 % [facility] Hematocrit (Bld) [Volume fraction] 31.8 % Low 36.0 - 46.0 % [facility] Hemoglobin (Bld) [Mass/Vol] 9.5 g/dL Low 12.0 - 16.0 g/dL [facility] Immature granulocytes (Bld) [#/Vol] 0.06 10*3/uL [facility] Immature granulocytes/100 WBC (Bld) 0.8 % [facility] Comment on above: The IG parameter is the percentage of metamyelocytes, myelocytes and promyelocytes. An immature granulocyte count (IG) of 1% or more suggests the possibility of infection, an IG count of 3% is very likely related to an infection. Interpretation and review of laboratory results Abnormal [facility] Lymphocytes (Bld) [#/Vol] 1.24 10*3/uL [facility] Lymphocytes/100 WBC (Bld) 15.8 % [facility] MCH (RBC) [Entitic mass] 26.2 pg 26.0 - 34.0 pg [facility] MCHC (RBC) [Mass/Vol] 29.9 g/dL Low 31.0 - 37.0 g/dL [facility] MCV (RBC) [Entitic vol] 87.6 fL 80.0 - 100.0 fL [facility] Monocytes (Bld) [#/Vol] 0.61 10*3/uL [facility] Monocytes/100 WBC (Bld) 7.8 % [facility] Neutrophils (Bld) [#/Vol] 5.85 10*3/uL [facility] Neutrophils/100 WBC (Bld) 74.7 % [facility] Nucleated RBC (Bld) [#/Vol] 0 10*3/uL [facility] Nucleated RBC/100 WBC (Bld) [Ratio] 0 % [facility] Platelet mean volume (Bld) [Entitic vol] 9.8 fL 9.4 - 12.4 fL [facility] Platelets (Bld) [#/Vol] 199 10*3/uL [facility] RBC (Bld) [#/Vol] 3.63 10*6/uL Low [facility] WBC (Bld) [#/Vol] 7.83 10*3/uL [facility] CBC WITH AUTO DIFFERENTIALon 02-16-2025 AUTO NRBC 0.0 % Normal [facility] Comment on above: Performed By: #### L [id number] ####[facility] [address] [address] Maurice Coello M.D. [id number] AUTO NRBC ABS COUNT 0.00 K/mcL Normal 0.00-0.00 [facility] Comment on above: Performed By: #### L [id number] #### LAB [address] [address] Maurice Coello M.D. [id number] BASOPHILS ABSOLUTE COUNT 0.04 K/mcL Normal 0.00-0.30 [facility] Comment on above: Performed By: #### L [id number] #### LAB [address] [address] Maurice Coello M.D. [id number] Basophils/100 WBC (Bld) 0.5 % Normal [facility] Comment on above: Performed By: #### L [id number] #### LAB [address] [address] Maurice Coello M.D. [id number] Eosinophils (Bld) [#/Vol] 0.03 10*3/uL Normal 0.00-0.50 [facility] Comment on above: Performed By: #### L [id number] #### LAB [address] [address] Maurice Coello M.D. [id number] Eosinophils/100 WBC (Bld) 0.4 % Normal [facility] Comment on above: Performed By: #### L [id number] #### LAB [address] [address] Maurice Coello M.D. [id number] Erythrocyte distribution width (RBC) [Ratio] 13.9 % Normal 11.6-14.8 [facility] Comment on above: Performed By: #### L [id number] #### LAB [address] [address] Maurice Coello M.D. [id number] Hematocrit (Bld) [Volume fraction] 31.8 % Low 36.0-46.0 [facility] Comment on above: Performed By: #### L [id number] #### LAB [address] [address] Maurice Coello M.D. [id number] Hemoglobin (Bld) [Mass/Vol] 9.5 g/dL Low 12.0-16.0 [facility] Comment on above: Performed By: #### L [id number] #### LAB [address] [address] Maurice Coello M.D. [id number] IG ABSOLUTE 0.06 K/mcL Normal 0.00-0.30 [facility] Comment on above: Performed By: #### L [id number] #### LAB [address] [address] Maurice Coello M.D. [id number] IG PERCENT 0.80 % Normal [facility] Comment on above: Result Comment: The IG parameter is the percentage of metamyelocytes, myelocytes and promyelocytes. An immature granulocyte count (IG) of 1% or more suggests the possibility of infection, an IG count of 3% is very likely related to an infection. Performed By: #### L [id number] #### LAB [address] [address] Maurice Coello M.D. [id number] Lymphocytes (Bld) [#/Vol] 1.24 10*3/uL Normal 0.90-4.00 [facility] Comment on above: Performed By: #### L [id number] #### LAB [address] [address] Maurice Coello M.D. [id number] Lymphocytes/100 WBC (Bld) 15.8 % Normal [facility] Comment on above: Performed By: #### L [id number] #### LAB [address] [address] Maurice Coello M.D. [id number] MCH (RBC) [Entitic mass] 26.2 pg Normal 26.0-34.0 [facility] Comment on above: Performed By: #### L [id number] #### LAB [address] [place] [address] Maurice Coello M.D. [id number] MCV (RBC) [Entitic vol] 87.6 fL Normal 80.0-100.0 [facility] Comment on above: Performed By: #### L [id number] #### LAB [address] [address] Maurice Coello M.D. [id number] MEAN CORPUSCULAR HEMOGLOBIN CONC 29.9 g/dL Low 31.0-37.0 [facility] Comment on above: Performed By: #### L [id number] #### LAB [address] [address] Maurice Coello M.D. [id number] Monocytes (Bld) [#/Vol] 0.61 10*3/uL Normal 0.30-0.90 [facility] Comment on above: Performed By: #### L [id number] #### LAB [address] [address] Maurice Coello M.D. [id number] Monocytes/100 WBC (Bld) 7.8 % Normal [facility] Comment on above: Performed By: #### L [id number] #### LAB [address] [address] Maurice Coello M.D. [id number] NEUTROPHILS ABSOLUTE COUNT 5.85 K/mcL Normal 1.70-7.00 [facility] Comment on above: Performed By: #### L [id number] #### LAB [address] [address] Maurice Coello M.D. [id number] Neutrophils/100 WBC (Bld) 74.7 % Normal [facility] Comment on above: Performed By: #### L [id number] #### LAB [address] [address] Maurice Coello M.D. [id number] Platelet mean volume (Bld) [Entitic vol] 9.8 fL Normal 9.4-12.4 [facility] Comment on above: Performed By: #### L [id number] #### LAB [address] [address] Maurice Coello M.D. [id number] Platelets (Bld) [#/Vol] 199 10*3/uL Normal 150-400 [facility] Comment on above: Performed By: #### L [id number] ####MH LAB [address] [place], [place] [address] Maurice Coello M.D. [id number] RBC (Bld) [#/Vol] 3.63 10*6/uL Low 4.00-5.20 [facility] Comment on above: Performed By: #### L [id number] ####MH LAB [address] [address] Maurice Coello M.D. [id number] WBC (Bld) [#/Vol] 7.83 10*3/uL Normal 4.50-11.00 [facility] Comment on above: Performed By: #### L [id number] ####MH LAB [address] [address] Maurice Coello M.D. [id number] CK [Catalytic activity/Vol]o n 02-16-2025 Interpretation and review of laboratory results Abnormal [facility] Interpretation and review of laboratory results Abnormal [facility] CPKon 02-16-2025 CPK 4535 U/L High 40-170 [facility] Comment on above: Performed By: #### 4 7395 #### MH LAB [address] [address] Maurice Coello M.D. [id number] CPK 5003 U/L High 40-170 [facility] Comment on above: Performed By: #### 4 6932 #### MH LAB [address] [address] Maurice Coello M.D. [id number] CPK NO MBon 02-16-2025 CK [Catalytic activity/Vol] 4535 U/L High 40 - 170 U/L [facility] CK [Catalytic activity/Vol] 5003 U/L High 40 - 170 U/L [facility] Glucose (Bld) [Mass/Vol]on 0 02-16-2025 Glucose [Mass/Vol] 170 mg/dL High 65 - 99 mg/dL [facility] Interpretation and review of laboratory results Abnormal [facility] Glucose [Mass/Vol] 119 mg/dL High 65 - 99 mg/dL [facility] Interpretation and review of laboratory results Abnormal [facility] Glucose [Mass/Vol] 109 mg/dL High 65 - 99 mg/dL [facility] Interpretation and review of laboratory results Abnormal [facility] Glucose [Mass/Vol] 126 mg/dL High 65 - 99 mg/dL [facility] Interpretation and review of laboratory results Abnormal [facility] MAGNESIUM LEVELon 02-16-2025 Magnesium [Mass/Vol] 1.6 mg/dL Normal 1.6-2.4 [facility] Comment on above: Performed By: #### 4 6109 #### LAB [address] [place], [place] [address] Maurice Coello M.D. [id number] Magnesium Levelon 02-16-2025 Magnesium [Mass/Vol] 1.6 mg/dL 1.6 - 2 .4 mg/dL [facility] Magnesium [Mass/Vol]on 02-16 Interpretation and review of laboratory results Normal [facility] NT PRO BNPon 02-16-2025 Natriuretic peptide B (Bld) [Mass/Vol] 3770 pg/mL High 0-300 [facility] Comment on above: Order Comment: Pride Study Cut-offsRule In:< /= 50 Years >450 pg/mL51 Years - 75 Years >900 pg/mL76 Years - 99 Years >1800 pg/mLRule Out:All patients <300 pg/mL Performed By: #### 4 7395 #### LAB [address] [place], [place] [address] Maurice Coello M.D. [id number] NT Pro BNPon 02-16-2025 Natriuretic peptide.B prohormone N-Terminal [Mass/Vol] 3770 pg/mL High 0 - 300 pg/mL [facility] Natriuretic peptide.B prohor curly N-Terminal [Mass/Vol]on 02-16-2025 Interpretation and review of laboratory results Abnormal [facility] Pride Study Cut-offs Rule In: < /= 50 Years >450 pg/mL 51 Years - 75 Years >900 pg/mL 76 Years - 99 Years >1800 pg/mL Rule Out: All patients <300 pg/mL [facility] POC GLUCOSE - Lexa 025 Glucose [Mass/Vol] 170 mg/dL [address] Comment on above: Performed By: #### 4 6932 #### MH LAB [address] [address] Maurice Coello M.D. [id number] Glucose [Mass/Vol] 119 mg/dL [address] Comment on above: Performed By: #### 4 6932 #### MH LAB [address] [address] Maurice Coello M.D. [id number] Glucose [Mass/Vol] 109 mg/dL [address] Comment on above: Performed By: #### 4 6932 #### MH LAB [address] [address] Maurice Coello M.D. [id number] Glucose [Mass/Vol] 126 mg/dL [address] Comment on above: Performed By: #### 4 6932 #### LAB [address] [address] Maurice Coello M.D. [id number] Repeat EKGon 02-16-2025 Atrial Rate 75 BPM [facility] P Fowler 74 degrees [facility] P-R Interval 136 ms [facility] Q-T Interval 424 ms [facility] QRS Duration 104 ms [facility] QTC Calculation (Bezet) 473 ms [facility] R Fowler 20 degrees [facility] T Fowler -116 degrees [facility] Ventricular Rate 75 BPM [facility] th Normal sinus rhythm ST & T wave abnormality, consider inferior ischemia ST & T wave abnormality, consider anterolateral ischemia Prolonged QT Abnormal ECG ECG Cart Interpretation see physician note for interpretation. Confirmed by Yajaira Hernandez ([id number]) on 02/16/2025 5:24:09 PM [facility] TROPONIN (ONCE)on 02-16-2025 BASELINE TROPONIN T NG/L 40 ng/L Off scale high <=14 [facility] Comment on above: Performed By: #### 4 6980 #### MH LAB [address] [place], [place] [address] Maurice Coello M.D. [id number] TROPONIN T INTERPRETATION Possible acute cardiac injury. Normal [facility] Comment on above: Performed By: #### 4 6932 #### MH LAB [address] [place], [place] [address] Maurice Coello M.D. [id number] Troponin (Once)on 02-16-2025 Interpretation and review of laboratory results Abnormal [facility] Troponin T 40 ng/L Critically high NINF - 14 ng/L [facility] Troponin T Interpretation Possible acute cardiac injury. 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 Allowing for AP portable technique, the heart size is borderline. There are calcified right upper lobe pulmonary nodules. There is no focal lung consolidation. There is no pneumothorax or pleural effusion. IMPRESSION: Old granulomatous disease. Borderline heart size. No acute consolidation. Workstation ID: [id number] Dictated by: RIVAS KHAN on [employer] Feb 16, 2025 4:39:53 PM EDT Transcribed by: RIVAS HKAN on [employer] Feb 16, 2025 4:39:53 PM EDT Finalized by: RIVAS KHAN on [employer] Feb 16, 2025 4:39:53 PM EDT [facility] Comment on above: Order Comment: Injur y/Trauma or Illness?:Illness/OtherHow long have you had these symptoms (acute/chronic)?:AcuteReason for exam?:sobHistory of cancer?:unknownSurgeries, chemotherapy, or radiation?:cholecystectomy, hysterectomy, oophrectomy, left knee replacementType of Exam?:OngoingAdditional signs and symptoms?:contact iso;ation XR Chest PA and Abdomen APon 02-16-2025 Old granulomatous disease. Borderline heart size. No acute consolidation. 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 Allowing for AP portable technique, the heart size is borderline. There are calcified right upper lobe pulmonary nodules. There is no focal lung consolidation. There is no pneumothorax or pleural effusion. 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 Allowing for AP portable technique, the heart size is borderline. There are calcified right upper lobe pulmonary nodules. There is no focal lung consolidation. There is no pneumothorax or pleural effusion. IMPRESSION: Old granulomatous disease. Borderline heart size. No acute consolidation. Workstation ID: [id number] [facility] Radiology [facility]narrative) [facility] PA and Abdomen APOr dered By: Rivas Khan on 02-16-2025 [facility] Work Phone: BASIC METABOLIC PANELon 02-04 Anion gap [Moles/Vol] 15 mmol/L Normal 10-20 [facility] Comment on above: Order Comment: Pride Study Cut-offs Rule In: < /= 50 Years >450 pg/mL 51 Years - 75 Years >900 pg/mL 76 Years - 99 Years >1800 pg/mL Rule Out: All patients <300 pg/mL Performed By: #### 4 7395 #### MH LAB [address] [place], [place] [address] Maurice Coello M.D. [id number] Calcium [Mass/Vol] 7.9 mg/dL Low 8.4-10.2 [facility] Comment on above: Order Comment: Pride Study Cut-offs Rule In: < /= 50 Years >450 pg/mL 51 Years - 75 Years >900 pg/mL 76 Years - 99 Years >1800 pg/mL Rule Out: All patients <300 pg/mL Performed By: #### 4 7395 #### LAB [address] [place], [place] [address] Maurice Coello M.D. [id number] Chloride [Moles/Vol] 98 mmol/L Normal 98-108 [facility] Comment on above: Order Comment: Pride Study Cut-offs Rule In: < /= 50 Years >450 pg/mL 51 Years - 75 Years >900 pg/mL 76 Years - 99 Years >1800 pg/mL Rule Out: All patients <300 pg/mL Performed By: #### 4 7395 #### LAB [address] [place], [place] [address] Maurice Coello M.D. [id number] Creatinine [Mass/Vol] 1.54 mg/dL High 0.60-1.10 [facility] Comment on above: Order Comment: Pride Study Cut-offs Rule In: < /= 50 Years >450 pg/mL 51 Years - 75 Years >900 pg/mL 76 Years - 99 Years >1800 pg/mL Rule Out: All patients <300 pg/mL Performed By: #### 4 7395 #### LAB [address] [place], [place] [address] Maurice Coello M.D. [id number] EGFR 37 mL/min/1.73 m2 Low >=60 [facility] Comment on above: Order Comment: Pride Study Cut-offs Rule In: < /= 50 Years >450 pg/mL 51 Years - 75 Years >900 pg/mL 76 Years - 99 Years >1800 pg/mL Rule Out: All patients <300 pg/mL Result Comment: Ericka mated GFR was calculated using the 2020 CKD-EPI creatinine equation. Performed By: #### 4 7395 #### LAB [address] [place], [place] [address] Maurice Coello M.D. [id number] Glucose [Mass/Vol] 137 mg/dL High 65-99 [facility] Comment on above: Order Comment: Pride Study Cut-offs Rule In: < /= 50 Years >450 pg/mL 51 Years - 75 Years >900 pg/mL 76 Years - 99 Years >1800 pg/mL Rule Out: All patients <300 pg/mL Performed By: #### 4 7395 #### LAB [address] [place], [place] [address] Maurice Coello M.D. [id number] HCO3 (Bld) [Moles/Vol] 24 mmol/L Normal 21-32 [facility] Comment on above: Order Comment: Pride Study Cut-offs Rule In: < /= 50 Years >450 pg/mL 51 Years - 75 Years >900 pg/mL 76 Years - 99 Years >1800 pg/mL Rule Out: All patients <300 pg/mL Performed By: #### 4 7395 #### LAB [address] [place], [place] [address] Maurice Coello M.D. [id number] Potassium [Moles/Vol] 3.7 mmol/L Normal 3.5-5.1 [facility] Comment on above: Order Comment: Pride Study Cut-offs Rule In: < /= 50 Years >450 pg/mL 51 Years - 75 Years >900 pg/mL 76 Years - 99 Years >1800 pg/mL Rule Out: All patients <300 pg/mL Performed By: #### 4 7395 #### LAB [address] [place], [place] [address] Maurice Coello M.D. [id number] Sodium [Moles/Vol] 133 mmol/L Low 135-145 [facility] Comment on above: Order Comment: Pride Study Cut-offs Rule In: < /= 50 Years >450 pg/mL 51 Years - 75 Years >900 pg/mL 76 Years - 99 Years >1800 pg/mL Rule Out: All patients <300 pg/mL Performed By: #### 4 7395 #### LAB [address] [place], [place] [address] Maurice Coello M.D. [id number] Urea nitrogen [Mass/Vol] 23 mg/dL Normal 8-25 [facility] Comment on above: Order Comment: Pride Study Cut-offs Rule In: < /= 50 Years >450 pg/mL 51 Years - 75 Years >900 pg/mL 76 Years - 99 Years >1800 pg/mL Rule Out: All patients <300 pg/mL Performed By: #### 4 7395 #### LAB [address] [place], [place] [address] Maurice Coello M.D. [id number] Urea nitrogen/Creatinine [Mass ratio] 14.9 mg/mg Normal 10.0-20.0 [facility] Comment on above: Order Comment: Pride Study Cut-offs Rule In: < /= 50 Years >450 pg/mL 51 Years - 75 Years >900 pg/mL 76 Years - 99 Years >1800 pg/mL Rule Out: All patients <300 pg/mL Performed By: #### 4 7395 #### MH LAB [address] [place] [address] Maurice Coello M.D. [id number] Bacteria identified Aer cx N om (Unsp spec)Ordered By: Amalia Kendall on 02-15-2025 [facility] Basic metabolic 2000 panelOr dered By: Alea Joseph on 02-15-2025 Anion gap [Moles/Vol] 15 mmol/L 10 - 2 0 mmol/L [facility] Calcium [Mass/Vol] 7.9 mg/dL Low 8.4 - 10. 2 mg/dL [facility] Chloride [Moles/Vol] 98 mmol/L 98 - 10 8 mmol/L [facility] Creatinine [Mass/Vol] 1.54 mg/dL High 0.60 - 1.20 mg/dL [facility] GFR/1.73 sq M.predicted CKD-EPI (S/P/Bld) [Vol rate/Area] 37 Low - PINF [facility] Comment on above: Estimated GFR was ca lculated using the 2020 CKD-EPI creatinine equation. Glucose [Mass/Vol] 137 mg/dL High 65 - 99 mg/dL [facility] HCO3 [Moles/Vol] 24 mmol/L 21 - 32 mmol/L [facility] Interpretation and review of laboratory results Abnormal [facility] Potassium [Moles/Vol] 3.7 mmol/L 3.5 - 5.1 mmol/L [facility] Sodium [Moles/Vol] 133 mmol/L Low 135 - 145 mmol/L [facility] Urea nitrogen [Mass/Vol] 23 mg/dL 8 - 25 mg/dL [facility] Urea nitrogen/Creatinine [Mass ratio] 14.9 mg/mg 10.0 - 20.0 [facility] has implemented the eGFR calculation approach that does not have a coefficient for race that conforms to the NKF-ASN Task Force Recommendations. [facility] CBC Auto Differentialon 02-04 Basophils (Bld) [#/Vol] 0.02 10*3/uL [facility] Basophils/100 WBC (Bld) 0.2 % [facility] Eosinophils (Bld) [#/Vol] 0.05 10*3/uL [facility] Eosinophils/100 WBC (Bld) 0.5 % [facility] Erythrocyte distribution width (RBC) [Entitic vol] 13.8 % 11.6 - 14.8 % [facility] Hematocrit (Bld) [Volume fraction] 31.4 % Low 36.0 - 46.0 % [facility] Hemoglobin (Bld) [Mass/Vol] 9.3 g/dL Low 12.0 - 16.0 g/dL [facility] Immature granulocytes (Bld) [#/Vol] 0.06 10*3/uL [facility] Immature granulocytes/100 WBC (Bld) 0.6 % [facility] Comment on above: The IG parameter is the percentage of metamyelocytes, myelocytes and promyelocytes. An immature granulocyte count (IG) of 1% or more suggests the possibility of infection, an IG count of 3% is very likely related to an infection. Interpretation and review of laboratory results Abnormal [facility] Lymphocytes (Bld) [#/Vol] 1.33 10*3/uL [facility] Lymphocytes/100 WBC (Bld) 12.3 % [facility] MCH (RBC) [Entitic mass] 25.8 pg Low 26.0 - 34.0 pg [facility] MCHC (RBC) [Mass/Vol] 29.6 g/dL Low 31.0 - 37.0 g/dL [facility] MCV (RBC) [Entitic vol] 87.2 fL 80.0 - 100.0 fL [facility] Monocytes (Bld) [#/Vol] 0.77 10*3/uL [facility] Monocytes/100 WBC (Bld) 7.1 % [facility] Neutrophils (Bld) [#/Vol] 8.55 10*3/uL High [facility] Neutrophils/100 WBC (Bld) 79.3 % [facility] Nucleated RBC (Bld) [#/Vol] 0 10*3/uL [facility] Nucleated RBC/100 WBC (Bld) [Ratio] 0 % [facility] Platelet mean volume (Bld) [Entitic vol] 10.1 fL 9.4 - 12.4 fL [facility] Platelets (Bld) [#/Vol] 233 10*3/uL [facility] RBC (Bld) [#/Vol] 3.6 10*6/uL Low [facility] alth WBC (Bld) [#/Vol] 10.78 10*3/uL [facility] CBC WITH AUTO DIFFERENTIALon 02-15-2025 AUTO NRBC 0.0 % Normal [facility] Comment on above: Performed By: #### L [id number] #### LAB [address] [place] [address] Maurice Coello M.D. [id number] AUTO NRBC ABS COUNT 0.00 K/mcL Normal 0.00-0.00 [facility] Comment on above: Performed By: #### L [id number] #### LAB [address] [place] [address] Maurice Coello M.D. [id number] BASOPHILS ABSOLUTE COUNT 0.02 K/mcL Normal 0.00-0.30 [facility] Comment on above: Performed By: #### L [id number] #### LAB [address] [place] [address] Maurice Coello M.D. [id number] Basophils/100 WBC (Bld) 0.2 % Normal [facility] Comment on above: Performed By: #### L [id number] #### LAB [address] [place] [address] Maurice Coello M.D. [id number] Eosinophils (Bld) [#/Vol] 0.05 10*3/uL Normal 0.00-0.50 [facility] Comment on above: Performed By: #### L [id number] #### LAB [address] [place] [address] Maurice Coello M.D. [id number] Eosinophils/100 WBC (Bld) 0.5 % Normal [facility] Comment on above: Performed By: #### L [id number] #### LAB [address] [place] [address] Maurice Coello M.D. [id number] Erythrocyte distribution width (RBC) [Ratio] 13.8 % Normal 11.6-14.8 [facility] Comment on above: Performed By: #### L [id number] #### LAB [address] [place] [address] Maurice Coello M.D. [id number] Hematocrit (Bld) [Volume fraction] 31.4 % Low 36.0-46.0 [facility] Comment on above: Performed By: #### L [id number] #### LAB [address] [place] [address] Maurice Coello M.D. [id number] Hemoglobin (Bld) [Mass/Vol] 9.3 g/dL Low 12.0-16.0 [facility] Comment on above: Performed By: #### L [id number] #### LAB [address] [place] [address] Maurice Coello M.D. [id number] IG ABSOLUTE 0.06 K/mcL Normal 0.00-0.30 [facility] Comment on above: Performed By: #### L [id number] #### LAB [address] [place] [address] Maurice Coello M.D. [id number] IG PERCENT 0.60 % [facility] Comment on above: Result Comment: The IG parameter is the percentage of metamyelocytes, myelocytes and promyelocytes. An immature granulocyte count (IG) of 1% or more suggests the possibility of infection, an IG count of 3% is very likely related to an infection. Performed By: #### L [id number] #### LAB [address] [place] [address] Maurcie Coello M.D. [id number] Lymphocytes (Bld) [#/Vol] 1.33 10*3/uL Normal 0.90-4.00 [facility] Comment on above: Performed By: #### L [id number] #### LAB [address] [place] [address] Maurice Coello M.D. [id number] Lymphocytes/100 WBC (Bld) 12.3 % Normal [facility] Comment on above: Performed By: #### L [id number] #### LAB [address] [place] [address] Maurice Coello M.D. [id number] MCH (RBC) [Entitic mass] 25.8 pg Low 26.0-34.0 [facility] Comment on above: Performed By: #### L [id number] ####[facility] LAB [address] [place] [address] Maurice Coello M.D. [id number] MCV (RBC) [Entitic vol] 87.2 fL Normal 80.0-100.0 [facility] Comment on above: Performed By: #### L [id number] #### LAB [address] [place] [address] Maurice Coello M.D. [id number] MEAN CORPUSCULAR HEMOGLOBIN CONC 29.6 g/dL Low 31.0-37.0 [facility] Comment on above: Performed By: #### L [id number] #### LAB [address] [place] [address] Maurice Coello M.D. [id number] Monocytes (Bld) [#/Vol] 0.77 10*3/uL Normal 0.30-0.90 [facility] Comment on above: Performed By: #### L [id number] #### LAB [address] [place] [address] Maurice Coello M.D. [id number] Monocytes/100 WBC (Bld) 7.1 % Normal [facility] Comment on above: Performed By: #### L [id number] #### LAB [address] [place] [address] Maurice Coello M.D. [id number] NEUTROPHILS ABSOLUTE COUNT 8.55 K/mcL High 1.70-7.00 [facility] Comment on above: Performed By: #### L [id number] #### LAB [address] [place] [address] Maurice Coello M.D. [id number] Neutrophils/100 WBC (Bld) 79.3 % Normal [facility] Comment on above: Performed By: #### L [id number] #### LAB [address] [place] [address] Maurice Coello M.D. [id number] Platelet mean volume (Bld) [Entitic vol] 10.1 fL Normal 9.4-12.4 [facility] Comment on above: Performed By: #### L [id number] ####MH LAB [address] [place], [place] [address] Maurice Coello M.D. [id number] Platelets (Bld) [#/Vol] 233 10*3/uL Normal 150-400 [facility] Comment on above: Performed By: #### L [id number] ####[facility] LAB [address] [place] [id number] Maurice Coello M.D. [id number] RBC (Bld) [#/Vol] 3.60 10*6/uL Low 4.00-5.20 [facility] Comment on above: Performed By: #### L [id number] ####MH LAB [address] [place] [address] Maurice Coello M.D. [id number] WBC (Bld) [#/Vol] 10.78 10*3/uL Normal 4.50-11.00 [facility] Comment on above: Performed By: #### L [id number] ####MH LAB [address] [place] [address] Maurice Coello M.D. [id number] CK [Catalytic activity/Vol]o n 02-15-2025 Interpretation and review of laboratory results Abnormal [facility] CPKon 02-15-2025 CPK 14344 U/L High 40-170 [facility] Comment on above: Performed By: #### 4 [id number] #### LAB [address] [place] [address] Maurice Coello M.D. [id number] CPK NO MBon 02-15-2025 CK [Catalytic activity/Vol] 46947 U/L High 40 - 170 U/L [facility] EKG 12-leadon 02-15-2025 Atrial Rate 94 BPM [facility] P Fowler 71 degrees [facility] P-R Interval 144 ms [facility] Q-T Interval 330 ms [facility] QRS Duration 90 ms [facility] QTC Calculation (Bezet) 412 ms [facility] R Fowler -12 degrees [facility] T Fowler 63 degrees [facility] Ventricular Rate 94 BPM [facility] Normal sinus rhythm Normal ECG ECG Cart Interpretation see physician note for interpretation. Confirmed by Yajaira Hernandez ([id number]) on 02/15/2025 12:15:20 PM MUSE [facility] Gastrointestinal pathogens D NA and RNA panel CATRINA+non-probe (Stl)Ordered By: Donna Melendez on 02-15-2025 Adenovirus 40+41 DNA CATRINA+non-probe Ql (Stl) Not detected Not Detected [facility] Astrovirus subtypes 1-8 RNA CATRINA+non-probe Ql (Stl) Not detected Not Detected [facility] C. cayetanensis DNA CATRINA+non-probe Ql (Stl) Not detected Not Detected [facility] C. coli+jejuni+upsaliensis DNA CATRINA+non-probe Ql (Stl) Not detected Not Detected [facility] C. difficile toxin A+B tcdA+tcdB genes CATRINA+non-probe Ql (Stl) Not detected Not Detected [facility] Cryptosporidium sp DNA CATRINA+non-probe Ql (Stl) Not detected Not Detected [facility] E. coli enteroaggregative Clayton plasmid aggR+aatA genes CATRINA+non-probe Ql (Stl) Detected Abnormal Not Detected [facility] Comment on above: EPEC is associated w ith acute or prolonged watery diarrhea with vomiting and fever. EPEC carriage may also be asymptomatic. Treatment with antibiotics is not recommended. E. coli enteropathogenic eae gene CATRINA+non-probe Ql (Stl) Not detected Not Detected [facility] E. coli enterotoxigenic ltA+st1a+st1b genes CATRINA+non-probe Ql (Stl) Not detected Not Detected [facility] E. coli stx1+stx2 genes CATRINA+non-probe Ql (Stl) Not detected Not Detected [facility] E. histolytica DNA CATRINA+non-probe Ql (Stl) Not detected Not Detected [facility] G. lamblia DNA CATRINA+non-probe Ql (Stl) Not detected Not Detected [facility] Interpretation and review of laboratory results Abnormal [facility] Norovirus genogroup I+II RNA CATRINA+non-probe Ql (Stl) Detected Abnormal Not Detected [facility] Comment on above: Highly contagious; N [...] CATRINA+non-probe Ql (Stl) Not detected [facility] Rotavirus A RNA CATRINA+non-probe Ql (Stl) Not detected Not Detected [facility] S. enterica+bongori DNA CATRINA+non-probe Ql (Stl) Not detected Not Detected [facility] Sapovirus genogroups I+II+IV+V RNA CATRINA+non-probe Ql (Stl) Not detected Not Detected [facility] Shigella species+EIEC invasion plasmid antigen H ipaH gene CATRINA+non-probe Ql (Stl) Not detected Not Detected [facility] V. cholerae DNA CATRINA+non-probe Ql (Stl) Not detected Not Detected [facility] V. cholerae+parahaemolytic us+vulnificus DNA CATRINA+non-probe Ql (Stl) Not detected Not Detected [facility] Y. enterocolitica DNA CATRINA+non-probe Ql (Stl) Not detected Not Detected [facility] Results of PCR testi ng for [...] infections as well as select bacterial infections. [facility] Glucose (Bld) [Mass/Vol]on 0 02-15-2025 Glucose [Mass/Vol] 172 mg/dL High 65 - 99 mg/dL [facility] Interpretation and review of laboratory results Abnormal [facility] Glucose [Mass/Vol] 173 mg/dL High 65 - 99 mg/dL [facility] Interpretation and review of laboratory results Abnormal [facility] Glucose [Mass/Vol] 155 mg/dL High 65 - 99 mg/dL [facility] Interpretation and review of laboratory results Abnormal [facility] Glucose [Mass/Vol] 140 mg/dL High 65 - 99 mg/dL [facility] Interpretation and review of laboratory results Abnormal [facility] Glucose [Mass/Vol] 211 mg/dL High 65 - 99 mg/dL [facility] Interpretation and review of laboratory results Abnormal [facility] MAGNESIUM LEVELon 02-15-2025 Magnesium [Mass/Vol] 1.7 mg/dL Normal 1.6-2.4 [facility] Comment on above: Performed By: #### 4 6109 ####[facility] LAB [address] [place], [place] [address] Maurice Coello M.D. [id number] Magnesium Levelon 02-15-2025 Magnesium [Mass/Vol] 1.7 mg/dL 1.6 - 2 .4 mg/dL [facility] Magnesium [Mass/Vol]on 02-15 Interpretation and review of laboratory results Normal [facility] No Panel InformationOrdered By: Alea Joseph on 02-15-2025 [facility] POC GLUCOSE - RALSon 025 Glucose [Mass/Vol] 172 mg/dL High [address] [place] [address] Comment on above: Performed By: #### 4 6932 #### [facility] LAB [address] [place] [address] Maurice Coello M.D. [id number] Glucose [Mass/Vol] 173 mg/dL High [address] [place] [address] Comment on above: Performed By: #### 4 6932 #### [facility] LAB [address] [place] [address] Maurice Coello M.D. [id number] Glucose [Mass/Vol] 155 mg/dL [address] Comment on above: Performed By: #### 4 6932 #### [facility] LAB [address] [place] [id number] Maurice Coello M.D. [id number] Glucose [Mass/Vol] 140 mg/dL [address] Comment on above: Performed By: #### 4 6978 #### [facility] LAB [address] [place] [id number] Maurice Coello M.D. [id number] Glucose [Mass/Vol] 211 mg/dL [address] Comment on above: Performed By: #### 4 6918 #### MH LAB [address] [place], [place] [address] Maurice Coello M.D. [id number] STOOL/GI PCR PANELon 025 STOOL/GI PCR PANEL [...] Detected SAPOVIRUS Not Detected Abnormal Not Detected [facility] Comment on above: Order Comment: Resul ts [...] select bacterial infections. Performed By: #### L [id number] ####[facility] LAB [address] [place], [place] [address] Maurice Coello M.D. [id number] Urine Aerobic CultureOrdered By: Amalia Kendall on 02-15-2025 Bacteria identified Aer cx Nom (Unsp spec) < 10,000 CFU/mL of normal urogenital microbiota [facility] BASIC METABOLIC PANELon 02-04 Anion gap [Moles/Vol] 20 mmol/L Normal 10-20 [facility] Comment on above: Order Comment: Injur y/Trauma or Illness?:Illness/Other How long have you had these symptoms (acute/chronic)?:Chronic Reason for exam?:A-fib [facility] TO READ Type of Exam?:Initial Additional signs and symptoms?:n Performed By: #### 4 6124 #### LAB [address] [place] [address] Maurice Coello M.D. [id number] Calcium [Mass/Vol] 9.1 mg/dL Normal 8.4-10.2 [facility] Comment on above: Order Comment: Injur y/Trauma or Illness?:Illness/Other How long have you had these symptoms (acute/chronic)?:Chronic Reason for exam?:A-fib [facility] TO READ Type of Exam?:Initial Additional signs and symptoms?:n Performed By: #### 4 6124 #### LAB [address] [place] [address] Maurice Coello M.D. [id number] Chloride [Moles/Vol] 95 mmol/L Low 98-108 [facility] Comment on above: Order Comment: Injur y/Trauma or Illness?:Illness/Other How long have you had these symptoms (acute/chronic)?:Chronic Reason for exam?:A-fib [facility] TO READ Type of Exam?:Initial Additional signs and symptoms?:n Performed By: #### 4 6124 #### LAB [address] [place] [address] Maurice Coello M.D. [id number] Creatinine [Mass/Vol] 1.78 mg/dL High 0.60-1.10 [facility] Comment on above: Order Comment: Injur y/Trauma or Illness?:Illness/Other How long have you had these symptoms (acute/chronic)?:Chronic Reason for exam?:A-fib [facility] TO READ Type of Exam?:Initial Additional signs and symptoms?:n Performed By: #### 4 6144 #### LAB [address] [place] [address] Maurice Coello M.D. [id number] EGFR 31 mL/min/1.73 m2 Low >=60 [facility] Comment on above: Order Comment: Injur y/Trauma or Illness?:Illness/Other How long have you had these symptoms (acute/chronic)?:Chronic Reason for exam?:A-fib [facility] TO READ Type of Exam?:Initial Additional signs and symptoms?:n Result Comment: Ericka mated GFR was calculated using the 2020 CKD-EPI creatinine equation. Performed By: #### 4 6195 #### LAB [address] [place] [address] Maurice Coello M.D. [id number] Glucose [Mass/Vol] 194 mg/dL High 65-99 [facility] Comment on above: Order Comment: Injur y/Trauma or Illness?:Illness/Other How long have you had these symptoms (acute/chronic)?:Chronic Reason for exam?:A-fib [facility] TO READ Type of Exam?:Initial Additional signs and symptoms?:n Performed By: #### 4 6120 #### LAB [address] [place] [address] Maurice Coello M.D. [id number] HCO3 (Bld) [Moles/Vol] 23 mmol/L Normal 21-32 [facility] Comment on above: Order Comment: Injur y/Trauma or Illness?:Illness/Other How long have you had these symptoms (acute/chronic)?:Chronic Reason for exam?:A-fib [facility] TO READ Type of Exam?:Initial Additional signs and symptoms?:n Performed By: #### 4 6112 #### LAB [address] [place] [address] Maurice Coello M.D. [id number] Potassium [Moles/Vol] 4.9 mmol/L Normal 3.5-5.1 [facility] Comment on above: Order Comment: Injur y/Trauma or Illness?:Illness/Other How long have you had these symptoms (acute/chronic)?:Chronic Reason for exam?:A-fib [facility] TO READ Type of Exam?:Initial Additional signs and symptoms?:n Performed By: #### 4 6124 #### LAB [address] [place] [address] Maurice Coello M.D. [id number] Sodium [Moles/Vol] 133 mmol/L Low 135-145 [facility] Comment on above: Order Comment: Injur y/Trauma or Illness?:Illness/Other How long have you had these symptoms (acute/chronic)?:Chronic Reason for exam?:A-fib [facility] TO READ Type of Exam?:Initial Additional signs and symptoms?:n Performed By: #### 4 6124 #### LAB [address] [place] [address] Maurice Coello M.D. [id number] Urea nitrogen [Mass/Vol] 20 mg/dL Normal 8-25 [facility] Comment on above: Order Comment: Injur y/Trauma or Illness?:Illness/Other How long have you had these symptoms (acute/chronic)?:Chronic Reason for exam?:A-fib [facility] TO READ Type of Exam?:Initial Additional signs and symptoms?:n Performed By: #### 4 6124 #### LAB [address] [place] [address] Maurice Coello M.D. [id number] Urea nitrogen/Creatinine [Mass ratio] 11.2 mg/mg Normal 10.0-20.0 [facility] Comment on above: Order Comment: Injur y/Trauma or Illness?:Illness/Other How long have you had these symptoms (acute/chronic)?:Chronic Reason for exam?:A-fib [facility] TO READ Type of Exam?:Initial Additional signs and symptoms?:n Performed By: #### 4 6124 ####[facility] LAB [address], [place] [address] Maurice Coello M.D. [id number] Basic metabolic 2000 panelon 02-14-2025 Anion gap [Moles/Vol] 20 mmol/L 10 - 2 0 mmol/L [facility] Calcium [Mass/Vol] 9.1 mg/dL 8.4 - 10. 2 mg/[facility] Chloride [Moles/Vol] 95 mmol/L Low 98 - 10 8 mmol/L [facility] Creatinine [Mass/Vol] 1.78 mg/dL High 0.60 - 1.20 mg/dL [facility] GFR/1.73 sq M.predicted CKD-EPI (S/P/Bld) [Vol rate/Area] 31 Low - PINF [facility] Comment on above: Estimated GFR was ca lculated using the 2020 CKD-EPI creatinine equation. Glucose [Mass/Vol] 194 mg/dL High 65 - 99 mg/dL [facility] [Moles/Vol] 23 mmol/L 21 - 32 mmol/L [facility] Potassium [Moles/Vol] 4.9 mmol/L 3.5 - 5.1 mmol/L [facility] Sodium [Moles/Vol] 133 mmol/L Low 135 - 145 mmol/L [facility] Urea nitrogen [Mass/Vol] 20 mg/dL 8 - 25 mg/dL [facility] Urea nitrogen/Creatinine [Mass ratio] 11.2 mg/mg 10.0 - 20.0 [facility] has implemented the eGFR calculation approach that does not have a coefficient for race that conforms to the NKF-ASN Task Force Recommendations. [facility] CBC Auto Differentialon 02-04 Basophils (Bld) [#/Vol] 0.01 10*3/uL [facility] Basophils/100 WBC (Bld) 0.1 % [facility] Eosinophils (Bld) [#/Vol] 0 10*3/uL [facility] Eosinophils/100 WBC (Bld) 0 % [facility] Erythrocyte distribution width (RBC) [Entitic vol] 13.7 % 11.6 - 14.8 % [facility] Hematocrit (Bld) [Volume fraction] 36.6 % 36.0 - 46.0 % [facility] Hemoglobin (Bld) [Mass/Vol] 11.3 g/dL Low 12.0 - 16.0 g/dL [facility] Immature granulocytes (Bld) [#/Vol] 0.03 10*3/uL [facility] Immature granulocytes/100 WBC (Bld) 0.4 % [facility] Comment on above: The IG parameter is the percentage of metamyelocytes, myelocytes and promyelocytes. An immature granulocyte count (IG) of 1% or more suggests the possibility of infection, an IG count of 3% is very likely related to an infection. Interpretation and review of laboratory results Abnormal [facility] Lymphocytes (Bld) [#/Vol] 0.76 10*3/uL Low [facility] Lymphocytes/100 WBC (Bld) 9.6 % [facility] MCH (RBC) [Entitic mass] 25.7 pg Low 26.0 - 34.0 pg [facility] MCHC (RBC) [Mass/Vol] 30.9 g/dL Low 31.0 - 37.0 g/dL [facility] MCV (RBC) [Entitic vol] 83.4 fL 80.0 - 100.0 fL [facility] Monocytes (Bld) [#/Vol] 0.08 10*3/uL Low [facility] Monocytes/100 WBC (Bld) 1 % [facility] Neutrophils (Bld) [#/Vol] 7.04 10*3/uL High [facility] Neutrophils/100 WBC (Bld) 88.9 % [facility] Nucleated RBC (Bld) [#/Vol] 0 10*3/uL [facility] Nucleated RBC/100 WBC (Bld) [Ratio] 0 % [facility] Platelet mean volume (Bld) [Entitic vol] 10.2 fL 9.4 - 12.4 fL [facility] Platelets (Bld) [#/Vol] 278 10*3/uL [facility] RBC (Bld) [#/Vol] 4.39 10*6/uL [facility] WBC (Bld) [#/Vol] 7.92 10*3/uL [facility] CBC WITH AUTO DIFFERENTIALon 02-14-2025 AUTO NRBC 0.0 % Normal [facility] Comment on above: Performed By: #### 4 6932 #### MH LAB [address], [place] [address] Maurice Coello M.D. [id number] AUTO NRBC ABS COUNT 0.00 K/mcL Normal 0.00-0.00 [facility] Comment on above: Performed By: #### 4 5835 #### LAB [address] [address] Maurice Coello M.D. [id number] BASOPHILS ABSOLUTE COUNT 0.01 K/mcL Normal 0.00-0.30 [facility] Comment on above: Performed By: #### 4 1511 #### LAB [address] [address] Maurice Coello M.D. [id number] Basophils/100 WBC (Bld) 0.1 % Normal [facility] Comment on above: Performed By: #### 4 3502 #### LAB [address] [address] Maurice Coello M.D. [id number] Eosinophils (Bld) [#/Vol] 0.00 10*3/uL Normal 0.00-0.50 [facility] Comment on above: Performed By: #### 4 8262 #### LAB [address] [address] Maurice Coello M.D. [id number] Eosinophils/100 WBC (Bld) 0.0 % Normal [facility] Comment on above: Performed By: #### 4 0938 #### LAB [address] [place] [address] Maurice Coello M.D. [id number] Erythrocyte distribution width (RBC) [Ratio] 13.7 % Normal 11.6-14.8 [facility] Comment on above: Performed By: #### 4 4563 #### LAB [address] [address] Maurice Coello M.D. [id number] Hematocrit (Bld) [Volume fraction] 36.6 % Normal 36.0-46.0 [facility] Comment on above: Performed By: #### 4 9760 #### LAB [address] [place] [address] Maurice Coello M.D. [id number] Hemoglobin (Bld) [Mass/Vol] 11.3 g/dL Low 12.0-16.0 [facility] Comment on above: Performed By: #### 4 2142 #### LAB [address] [address] Maurice Coello M.D. [id number] IG ABSOLUTE 0.03 K/mcL Normal 0.00-0.30 [facility] Comment on above: Performed By: #### 4 6724 #### LAB [address] [address] Maurice Coello M.D. [id number] IG PERCENT 0.40 % [facility] Comment on above: Result Comment: The IG parameter is the percentage of metamyelocytes, myelocytes and promyelocytes. An immature granulocyte count (IG) of 1% or more suggests the possibility of infection, an IG count of 3% is very likely related to an infection. Performed By: #### 4 3514 #### LAB [address] [address] Maurice Coello M.D. [id number] Lymphocytes (Bld) [#/Vol] 0.76 10*3/uL Low 0.90-4.00 [facility] Comment on above: Performed By: #### 4 4191 #### LAB [address] [address] Maurice Coello M.D. [id number] Lymphocytes/100 WBC (Bld) 9.6 % [facility] Comment on above: Performed By: #### 4 2492 #### LAB [address] [address] Maurice Coello M.D. [id number] MCH (RBC) [Entitic mass] 25.7 pg Low 26.0-34.0 [facility] Comment on above: Performed By: #### 4 0735 #### LAB [address] [address] Maurice Coello M.D. [id number] MCV (RBC) [Entitic vol] 83.4 fL Normal 80.0-100.0 [facility] Comment on above: Performed By: #### 4 8438 #### LAB [address] [address] Maurice Coello M.D. [id number] MEAN CORPUSCULAR HEMOGLOBIN CONC 30.9 g/dL Low 31.0-37.0 [facility] Comment on above: Performed By: #### 4 6932 #### LAB [address] [address] Maurice Coello M.D. [id number] Monocytes (Bld) [#/Vol] 0.08 10*3/uL Low 0.30-0.90 [facility] Comment on above: Performed By: #### 4 6932 #### LAB [address] [address] Maurice Coello M.D. [id number] Monocytes/100 WBC (Bld) 1.0 % Normal [facility] Comment on above: Performed By: #### 4 6932 #### LAB [address] [address] Maurice Coello M.D. [id number] NEUTROPHILS ABSOLUTE COUNT 7.04 K/mcL High 1.70-7.00 [facility] Comment on above: Performed By: #### 4 6932 #### LAB [address] [address] Maurice Coello M.D. [id number] Neutrophils/100 WBC (Bld) 88.9 % Normal [facility] Comment on above: Performed By: #### 4 6932 #### LAB [address] [address] Maurice Coello M.D. [id number] Platelet mean volume (Bld) [Entitic vol] 10.2 fL Normal 9.4-12.4 [facility] Comment on above: Performed By: #### 4 6967 #### LAB [address] [address] Maurice Coello M.D. [id number] Platelets (Bld) [#/Vol] 278 10*3/uL Normal 150-400 [facility] Comment on above: Performed By: #### 4 6979 #### MH LAB [address] [address] Maurice Coello M.D. [id number] RBC (Bld) [#/Vol] 4.39 10*6/uL Normal 4.00-5.20 [facility] Comment on above: Performed By: #### 4 6932 #### MH LAB [address] [address] Maurice Coello M.D. [id number] WBC (Bld) [#/Vol] 7.92 10*3/uL Normal 4.50-11.00 [facility] Comment on above: Performed By: #### 4 6932 #### LAB [address] [address] Maurice Coello M.D. [id number] CK [Catalytic activity/Vol]o n 02-14-2025 Interpretation and review of laboratory results Abnormal [facility] CPKon 02-14-2025 CPK 74221 U/L High 40-170 [facility] Comment on above: Performed By: #### 4 8261 #### LAB [address] [address] Maurice Coello M.D. [id number] CPK NO MBon 02-14-2025 CK [Catalytic activity/Vol] 79288 U/L High 40 - 170 U/L [facility] EKGon 02-14-2025 [facility] MAGNESIUM LEVELon 02-14-2025 Magnesium [Mass/Vol] 1.8 mg/dL Normal 1.6-2.4 [facility] Comment on above: Performed By: #### 4 6109 ####[facility] LAB [address] [address] Maurice Coello M.D. [id number] MRSA DNA AMPLIFIED PROBEon 0 02-14-2025 MRSA DNA AMPLIFIED PROBE Negative Normal Not Detected, MRSA NEGATIVE [facility] Comment on above: Performed By: #### 4 8061 ####[facility] LAB [address] [address] Maurice Coello M.D. [id number] MRSA DNA Amplified ProbeOrde red By: Jonatan West on 02-14-2025 MRSA DNA CATRINA+probe Ql (Unsp spec) Negative Not Detected, MRSA NEGATIVE [facility] MRSA DNA CATRINA+probe Ql (Unsp spec)Ordered By: Jonatan West on 02-14-2025 Interpretation and review of laboratory results Normal [facility] Magnesiumon 02-14-2025 Magnesium [Mass/Vol] 1.8 mg/dL 1.6 - 2 .4 mg/dL [facility] Magnesium [Mass/Vol]on 02-14 Interpretation and review of laboratory results Normal [facility] No Panel Informationon 02-14 Interpretation and review of laboratory results Abnormal [facility] TROPONIN X 2 (NOW AND REPEAT IN 2 HOURS)on 02-14-2025 TROPONIN T DELTA % NG/L -23 % Off scale low <20 % of Baseline Troponin [facility] Comment on above: Performed By: #### 4 6932 #### LAB [address] [address] Maurice Coello M.D. [id number] TROPONIN T DELTA CHANGE INTERPRETATION Probable acute injury or myocardial infarction. Normal [facility] Comment on above: Performed By: #### 4 6932 #### LAB [address] [address] Maurice Coello M.D. [id number] TROPONIN T NG/L 76 ng/L Off scale high <=14 [facility] Comment on above: Performed By: #### 4 6932 #### LAB [address] [address] Maurice Coello M.D. [id number] TSHon 02-14-2025 TSH Qn 0.13 m[IU]/L Low 0.27-4.20 [facility] Comment on above: Performed By: #### 4 6613 #### LAB [address] [address] Maurice Coello M.D. [id number] TSH DL <= 0.005 mIU/L Qnon 0 02-14-2025 TSH Qn 0.13 m[IU]/L Low [facility] Troponin x 2 (Now and Repeat in 2 Hours)on 02-14-2025 Interp Troponin T Delta Change Probable acute injury or myocardial infarction. [facility] Interpretation and review of laboratory results Abnormal [facility] Troponin T Delta % -23 % Critically low <20% of Baseline Troponin [facility] Troponin T.cardiac High sensitivity method [Mass/Vol] 76 ng/L Critically high NINF - 14 ng/L [facility] Inter Troponin T Delta Change Probable non-acute cardiac injury or late presentation of acute injury. [facility] Interpretation and review of laboratory results Abnormal [facility] Troponin T Delta % -16 % <20% of Baseline Troponin [facility] Troponin T.cardiac High sensitivity method [Mass/Vol] 83 ng/L Critically high NINF - 14 ng/L [facility] BASIC METABOLIC PANELon 02-04 Anion gap [Moles/Vol] 18 mmol/L Normal 10-20 [facility] Comment on above: Order Comment: Pride Study Cut-offs Rule In: < /= 50 Years >450 pg/mL 51 Years - 75 Years >900 pg/mL 76 Years - 99 Years >1800 pg/mL Rule Out: All patients <300 pg/mL Performed By: #### 4 7395 #### LAB [address] [address] Maurice Coello M.D. [id number] Calcium [Mass/Vol] 9.7 mg/dL Normal 8.4-10.2 [facility] Comment on above: Order Comment: Pride Study Cut-offs Rule In: < /= 50 Years >450 pg/mL 51 Years - 75 Years >900 pg/mL 76 Years - 99 Years >1800 pg/mL Rule Out: All patients <300 pg/mL Performed By: #### 4 7395 #### LAB [address] [address] Maurice Coello M.D. [id number] Chloride [Moles/Vol] 95 mmol/L Low 98-108 [facility] Comment on above: Order Comment: Pride Study Cut-offs Rule In: < /= 50 Years >450 pg/mL 51 Years - 75 Years >900 pg/mL 76 Years - 99 Years >1800 pg/mL Rule Out: All patients <300 pg/mL Performed By: #### 4 7395 #### LAB [address], [place] [address] Maurice Coello M.D. [id number] Creatinine [Mass/Vol] 1.66 mg/dL High 0.60-1.10 [facility] Comment on above: Order Comment: Pride Study Cut-offs Rule In: < /= 50 Years >450 pg/mL 51 Years - 75 Years >900 pg/mL 76 Years - 99 Years >1800 pg/mL Rule Out: All patients <300 pg/mL Performed By: #### 4 7395 #### LAB [address] [address] Maurice Coello M.D. [id number] EGFR 34 mL/min/1.73 m2 Low >=60 [facility] Comment on above: Order Comment: Pride Study Cut-offs Rule In: < /= 50 Years >450 pg/mL 51 Years - 75 Years >900 pg/mL 76 Years - 99 Years >1800 pg/mL Rule Out: All patients <300 pg/mL Result Comment: Ericka mated GFR was calculated using the 2020 CKD-EPI creatinine equation. Performed By: #### 4 7395 #### LAB [address] [address] Maurice Coello M.D. [id number] Glucose [Mass/Vol] 128 mg/dL High 65-99 [facility] Comment on above: Order Comment: Pride Study Cut-offs Rule In: < /= 50 Years >450 pg/mL 51 Years - 75 Years >900 pg/mL 76 Years - 99 Years >1800 pg/mL Rule Out: All patients <300 pg/mL Performed By: #### 4 7395 #### LAB [address], [place] [address] Maurice Coello M.D. [id number] HCO3 (Bld) [Moles/Vol] 27 mmol/L Normal 21-32 [facility] Comment on above: Order Comment: Pride Study Cut-offs Rule In: < /= 50 Years >450 pg/mL 51 Years - 75 Years >900 pg/mL 76 Years - 99 Years >1800 pg/mL Rule Out: All patients <300 pg/mL Performed By: #### 4 7395 #### LAB [address], [place] [address] Maurice Coello M.D. [id number] Potassium [Moles/Vol] 4.5 mmol/L Normal 3.5-5.1 [facility] Comment on above: Order Comment: Pride Study Cut-offs Rule In: < /= 50 Years >450 pg/mL 51 Years - 75 Years >900 pg/mL 76 Years - 99 Years >1800 pg/mL Rule Out: All patients <300 pg/mL Performed By: #### 4 7395 #### LAB [address], [place] [address] Maurice Coello M.D. [id number] Sodium [Moles/Vol] 135 mmol/L Normal 135-145 [facility] Comment on above: Order Comment: Pride Study Cut-offs Rule In: < /= 50 Years >450 pg/mL 51 Years - 75 Years >900 pg/mL 76 Years - 99 Years >1800 pg/mL Rule Out: All patients <300 pg/mL Performed By: #### 4 7395 #### LAB [address], [place] [address] Maurice Coello M.D. [id number] Urea nitrogen [Mass/Vol] 18 mg/dL Normal 8- [facility] Comment on above: Order Comment: Pride Study Cut-offs Rule In: < /= 50 Years >450 pg/mL 51 Years - 75 Years >900 pg/mL 76 Years - 99 Years >1800 pg/mL Rule Out: All patients <300 pg/mL Performed By: #### 4 7395 #### LAB [address] [id number] Maurice Coello M.D. [id number] Urea nitrogen/Creatinine [Mass ratio] 10.8 mg/mg Normal 10.0-20.0 [facility] Comment on above: Order Comment: Pride Study Cut-offs Rule In: < /= 50 Years >450 pg/mL 51 Years - 75 Years >900 pg/mL 76 Years - 99 Years >1800 pg/mL Rule Out: All patients <300 pg/mL Performed By: #### 4 7395 #### LAB [address] [id number] Maurice Coello M.D. [id number] BLOOD CULTURE AEROBIC/ANAERO BICon 02-13-2025 BLOOD CULTURE AEROBIC/ANAEROBIC BLOOD CULTURE No Growth after 5 days Normal [facility] Comment on above: Performed By: #### 4 4014 #### LAB [address], [place] [address] Maurice Coello M.D. [id number] BNP (NT Pro BNP)on Natriuretic peptide.B prohormone N-Terminal [Mass/Vol] 3931 pg/mL High 0 - 300 pg/mL [facility] Basic metabolic 2000 panelon 02-13-2025 Anion gap [Moles/Vol] 18 mmol/L 10 - 2 0 mmol/L [facility] Calcium [Mass/Vol] 9.7 mg/dL 8.4 - 10. 2 mg/dL [facility] Chloride [Moles/Vol] 95 mmol/L Low 98 - 10 8 mmol/L [facility] Creatinine [Mass/Vol] 1.66 mg/dL High 0.60 - 1.20 mg/dL [facility] GFR/1.73 sq M.predicted CKD-EPI (S/P/Bld) [Vol rate/Area] 34 Low - PINF [facility] Comment on above: Estimated GFR was ca lculated using the 2020 CKD-EPI creatinine equation. Glucose [Mass/Vol] 128 mg/dL High 65 - 99 mg/dL [facility] HCO3 [Moles/Vol] 27 mmol/L 21 - 32 mmol/L [facility] Potassium [Moles/Vol] 4.5 mmol/L 3.5 - 5.1 mmol/L [facility] Sodium [Moles/Vol] 135 mmol/L 135 - 145 mmol/L [facility] Urea nitrogen [Mass/Vol] 18 mg/dL 8 - 25 mg/dL [facility] Urea nitrogen/Creatinine [Mass ratio] 10.8 mg/mg 10.0 - 20.0 [facility] has implemented the eGFR calculation approach that does not have a coefficient for race that conforms to the NKF-ASN Task Force Recommendations. [facility] CBC Auto Differentialon 02-04 Basophils (Bld) [#/Vol] 0.04 10*3/uL [facility] Basophils/100 WBC (Bld) 0.4 % [facility] Eosinophils (Bld) [#/Vol] 0.01 10*3/uL [facility] Eosinophils/100 WBC (Bld) 0.1 % [facility] Erythrocyte distribution width (RBC) [Entitic vol] 13.7 % 11.6 - 14.8 % [facility] Hematocrit (Bld) [Volume fraction] 42.7 % 36.0 - 46.0 % [facility] Hemoglobin (Bld) [Mass/Vol] 13 g/dL 12.0 - 16.0 g/dL [facility] Immature granulocytes (Bld) [#/Vol] 0.05 10*3/uL [facility] Immature granulocytes/100 WBC (Bld) 0.4 % [facility] Comment on above: The IG parameter is the percentage of metamyelocytes, myelocytes and promyelocytes. An immature granulocyte count (IG) of 1% or more suggests the possibility of infection, an IG count of 3% is very likely related to an infection. Interpretation and review of laboratory results Abnormal [facility] Lymphocytes (Bld) [#/Vol] 0.93 10*3/uL [facility] Lymphocytes/100 WBC (Bld) 8.2 % [facility] MCH (RBC) [Entitic mass] 25.5 pg Low 26.0 - 34.0 pg [facility] MCHC (RBC) [Mass/Vol] 30.4 g/dL Low 31.0 - 37.0 g/dL [facility] MCV (RBC) [Entitic vol] 83.7 fL 80.0 - 100.0 fL [facility] Monocytes (Bld) [#/Vol] 0.55 10*3/uL [facility] Monocytes/100 WBC (Bld) 4.8 % [facility] Neutrophils (Bld) [#/Vol] 9.81 10*3/uL High [facility] Neutrophils/100 WBC (Bld) 86.1 % [facility] Nucleated RBC (Bld) [#/Vol] 0 10*3/uL [facility] Nucleated RBC/100 WBC (Bld) [Ratio] 0 % [facility] Platelet mean volume (Bld) [Entitic vol] 10.1 fL 9.4 - 12.4 fL [facility] Platelets (Bld) [#/Vol] 319 10*3/uL [facility] RBC (Bld) [#/Vol] 5.1 10*6/uL [facility]th WBC (Bld) [#/Vol] 11.39 10*3/uL [facility] CBC WITH AUTO DIFFERENTIALon 02-13-2025 AUTO NRBC 0.0 % Normal [facility] Comment on above: Performed By: #### L [id number] #### LAB [address] [address] Maurice Coello M.D. [id number] AUTO NRBC ABS COUNT 0.00 K/mcL Normal 0.00-0.00 [facility] Comment on above: Performed By: #### L [id number] #### LAB [address] [address] Maurice Coello M.D. [id number] BASOPHILS ABSOLUTE COUNT 0.04 K/mcL Normal 0.00-0.30 [facility] Comment on above: Performed By: #### L [id number] #### LAB [address] [address] Maurice Coello M.D. [id number] Basophils/100 WBC (Bld) 0.4 % Normal [facility] Comment on above: Performed By: #### L [id number] #### LAB [address] [place] [address] Maurice Coello M.D. [id number] Eosinophils (Bld) [#/Vol] 0.01 10*3/uL Normal 0.00-0.50 [facility] Comment on above: Performed By: #### L [id number] #### LAB [address] [place] [address] Maurice Coello M.D. [id number] Eosinophils/100 WBC (Bld) 0.1 % Normal [facility] Comment on above: Performed By: #### L [id number] #### LAB [address] [address] Maurice Coello M.D. [id number] Erythrocyte distribution width (RBC) [Ratio] 13.7 % Normal 11.6-14.8 [facility] Comment on above: Performed By: #### L [id number] #### LAB [address] [address] Maurice Coello M.D. [id number] Hematocrit (Bld) [Volume fraction] 42.7 % Normal 36.0-46.0 [facility] Comment on above: Performed By: #### L [id number] #### LAB [address] [address] Maurice Coello M.D. [id number] Hemoglobin (Bld) [Mass/Vol] 13.0 g/dL Normal 12.0-16.0 [facility] Comment on above: Performed By: #### L [id number] #### LAB [address] [address] Maurice Coello M.D. [id number] IG ABSOLUTE 0.05 K/mcL Normal 0.00-0.30 [facility] Comment on above: Performed By: #### L [id number] #### LAB [address] [address] Maurice Coello M.D. [id number] IG PERCENT 0.40 % [facility] Comment on above: Result Comment: The IG parameter is the percentage of metamyelocytes, myelocytes and promyelocytes. An immature granulocyte count (IG) of 1% or more suggests the possibility of infection, an IG count of 3% is very likely related to an infection. Performed By: #### L [id number] #### LAB [address] [address] Maurice Coello M.D. [id number] Lymphocytes (Bld) [#/Vol] 0.93 10*3/uL Normal 0.90-4.00 [facility] Comment on above: Performed By: #### L [id number] #### LAB [address] [address] Maurice Coello M.D. [id number] Lymphocytes/100 WBC (Bld) 8.2 % [facility] Comment on above: Performed By: #### L [id number] #### LAB [address] [place] [address] Maurice Coello M.D. [id number] MCH (RBC) [Entitic mass] 25.5 pg Low 26.0-34.0 [facility] Comment on above: Performed By: #### L [id number] #### LAB [address] [address] Maurice Coello M.D. [id number] MCV (RBC) [Entitic vol] 83.7 fL Normal 80.0-100.0 [facility] Comment on above: Performed By: #### L [id number] #### LAB [address] [address] Maurice Coello M.D. [id number] MEAN CORPUSCULAR HEMOGLOBIN CONC 30.4 g/dL Low 31.0-37.0 [facility] Comment on above: Performed By: #### L [id number] #### LAB [address] [address] Maurice Coello M.D. [id number] Monocytes (Bld) [#/Vol] 0.55 10*3/uL Normal 0.30-0.90 [facility] Comment on above: Performed By: #### L [id number] #### LAB [address] [address] Maurice Coello M.D. [id number] Monocytes/100 WBC (Bld) 4.8 % Normal [facility] Comment on above: Performed By: #### L [id number] #### LAB [address] [address] Maurice Coello M.D. [id number] NEUTROPHILS ABSOLUTE COUNT 9.81 K/mcL High 1.70-7.00 [facility] Comment on above: Performed By: #### L [id number] #### LAB [address] [address] Maurice Coello M.D. [id number] Neutrophils/100 WBC (Bld) 86.1 % Normal [facility] Comment on above: Performed By: #### L [id number] #### LAB [address] [address] Maurice Coello M.D. [id number] Platelet mean volume (Bld) [Entitic vol] 10.1 fL Normal 9.4-12.4 [facility] Comment on above: Performed By: #### L [id number] ####[facility] LAB [address] [address] Maurice Coello M.D. [id number] Platelets (Bld) [#/Vol] 319 10*3/uL Normal 150-400 [facility] Comment on above: Performed By: #### L [id number] ####MH LAB [address] [address] Maurice Coello M.D. [id number] RBC (Bld) [#/Vol] 5.10 10*6/uL Normal 4.00-5.20 [facility] Comment on above: Performed By: #### L [id number] #### LAB [address] [address] Maurice Coello M.D. [id number] WBC (Bld) [#/Vol] 11.39 10*3/uL High 4.50-11.00 [facility] Comment on above: Performed By: #### L [id number] #### LAB [address] [address] Maurice Coello M.D. [id number] CK [Catalytic activity/Vol]o n 02-13-2025 Interpretation and review of laboratory results Abnormal [facility] Manual dilution performed [facility] COVID-19/INFLUENZA A,B MOLEC ULARon 02-13-2025 SARS-CoV-2 (COVID-19) Ab IA Ql SARS-COV-2 (SOFIE) Not Detected INFLUENZA A (SOFIE) Not Detected INFLUENZA B (SOFIE) Not Detected Normal Not Detected [facility] Comment on above: Performed By: #### L [id number] ####[facility] LAB [address] [address] Maurice Coello M.D. [id number] CPKon 02-13-2025 CPK 23222 U/L High 40-170 [facility] Comment on above: Order Comment: Pride Study Cut-offs Rule In: < /= 50 Years >450 pg/mL 51 Years - 75 Years >900 pg/mL 76 Years - 99 Years >1800 pg/mL Rule Out: All patients <300 pg/mL Performed By: #### 4 7395 #### [facility] LAB [address] [place], [place] [address] Maurice Coello M.D. [id number] CPK NO MBon 02-13-2025 CK [Catalytic activity/Vol] 43000 U/L High 40 - 170 U/L [facility] CT Abdomen and Pelvis W cont [...] focal consolidation is seen. Workstation ID: [id number] [employer] EXAMINATION: CTA PULM ART AND CT ABD [...] changes of the lumbar spine is seen. [employer] Matias Holguin MD - 02/13/2025 EXAMINATION: CTA [...] focal consolidation is seen. Workstation ID: [id number] [facility] Radiology Study observation (narrative) [facility] CT Abdomen and Pelvis W cont rast IVOrdered By: Matias Adler on 02-13-2025 [facility] Work Phone: CTA PULM ART AND [...] on MonFeb 13, 2025 7:20:00 PM EDT [facility] Comment on above: Order Comment: Injur [...] without acute dynamic changes, no STEMI. NSR. TX interval 144 ms. QRS 90 ms. BPM: 94 Clinical impression: normal ECG AUTHENTICATED BY ASTRID SANDERS, ON 02/13/2025 19:13:57 Normal [facility] ED Procedure EKG 12-lead Date/Time: 02/13/2025 3:51 PM Performed by: Astrid Sanders DO Authorized by: Astrid Sanders DO Interpreted by ED attending physician Comparison: compared with previous ECG from 09/21/2024 Similar to previous ECG Rhythm: sinus rhythm and sinus tachycardia BPM: 101 Clinical impression: abnormal ECG and sinus tachycardia Comments: Sinus tachycardia. TX interval 140 ms. QRS [address] and T wave abnormality. No STEMI. AUTHENTICATED BY ASTRID SANDERS, ON 02/13/2025 16:34:05 Normal [facility] ED Prov Noteon 02-13-2025 ED Prov Note EMERGENCY MEDICINE PROVIDER NOTE WELCOME TO [facility] NAME: Radah Shafer AGE: 64 y.o. SEX: female : 1960 ENCOUNTER DATE: 02/13/25 CSN: [id number] PCP: Erin Physician History of Presenting Illness/Medical [...] was given 4 baby aspirin by EMS MOLDER APPRENTICE. No nitroglycerin. Patient states that she was [...] ear normal. Nose: Nose normal. Mouth/Throat: Lips: Excello. Mouth: Mucous membranes are moist. Eyes: General: [...] All other components within normal limits Narrative: [facility] has implemented the eGFR calculation approach that does not have a coefficient for race that conforms to the NKF-ASN Task Force Recommendations. NT PRO BNP - Abnormal; Notable for the following components: NT-Pro BNP 3,931 (*) All other components within normal limits Narra (more content not included)... Normal [facility] EKG 12-leadon 02-13-2025 Atrial Rate 101 BPM [facility] P Fowler 65 degrees [facility] P-R Interval 148 ms [facility] Q-T Interval 368 ms [facility] QRS Duration 82 ms [facility] QTC Calculation (Bezet) 477 ms [facility] R Fowler -11 degrees [facility] T Fowler 65 degrees [facility] Ventricular Rate 101 BPM [facility] Sinus tachycardia Minimal voltage criteria for LVH, may be normal variant ( R in aVL ) Nonspecific ST and T wave abnormality Abnormal ECG ECG Cart Interpretation see physician note for interpretation. Confirmed by Yajaira Hernandez ([id number]) on 02/13/2025 8:27:59 PM MUSE [facility] Influenza virus A and B RNA and SARS-CoV-2 (COVID-19) N gene panel CATRINA+probe (Resp)Ordered By: Christine Dahl on 02-13-2025 FLUAV RNA CATRINA+probe Ql (Unsp spec) Not detected Not Detected [facility] FLUBV RNA CATRINA+probe Ql (Unsp spec) Not detected Not Detected [facility] Interpretation and review of laboratory results Normal [facility] SARS-CoV-2 (COVID-19) RNA CATRINA+probe Ql (Resp) Not detected Not Detected [facility] NT PRO BNPon 02-13-2025 Natriuretic peptide B (Bld) [Mass/Vol] 3931 pg/mL High 0-300 [facility] Comment on above: Order Comment: Pride Study Cut-offs Rule In: < /= 50 Years >450 pg/mL 51 Years - 75 Years >900 pg/mL 76 Years - 99 Years >1800 pg/mL Rule Out: All patients <300 pg/mL Performed By: #### 4 7395 #### LAB [address] [place], [place] [address] Maurice Coello M.D. [id number] Natriuretic peptide.B jovon rawls N-Terminal [Mass/Vol]on 02-13-2025 Pride Study Cut-offs Rule In: < /= 50 Years >450 pg/mL 51 Years - 75 Years >900 pg/mL 76 Years - 99 Years >1800 pg/mL Rule Out: All patients <300 pg/mL [facility] No Panel Informationon 02-13 Extra Tube Hold for add-ons. [facility] Comment on above: Auto resulted. [facility] Interpretation and review of laboratory results Abnormal [facility] POC VENOUS BLOOD GAS PANEL-P ULDamari - Lexa 02-13-2025 BASE EXCESS, VENOUS 3.4 High -2.0-2.0 [facility] Comment on above: Performed By: #### 4 6910 #### LAB [address] [address] Maurice Coello M.D. [id number] CALCIUM IONIZED 4.6 mg/dL Normal 4.5-5.3 [facility] Comment on above: Performed By: #### 4 6997 #### [facility] [address] [address] Maurice Coello M.D. [id number] CARBOXYHEMOGLOBIN 2.0 % of total Hb High <=1.5 [facility] Comment on above: Result Comment: Refe rence Ranges: Suburban Non-smokers: <1.5% Smokers: 1.5-5.0% Heavy Smokers: 5.0-9.0% Performed By: #### 4 6935 #### LAB [address] [address] Maurice Coello M.D. [id number] Chloride [Moles/Vol] 95 mmol/L Low 98-108 [facility] Comment on above: Performed By: #### 4 6918 #### [facility] LAB [address] [address] Maurice Coello M.D. [id number] FIO2 21 Normal [facility] Comment on above: Performed By: #### 4 6985 #### [facility] LAB [address] [place], [place] [address] Maurice Coello M.D. [id number] Glucose [Mass/Vol] 124 mg/dL High 65-99 [facility] Comment on above: Performed By: #### 4 6932 #### LAB [address] [address] Maurice Coello M.D. [id number] HCO3 (Bld) [Moles/Vol] 30.7 mmol/L High 24.0-28.0 [facility] Comment on above: Performed By: #### 4 6929 #### LAB [address] [address] Maurice Coello M.D. [id number] Hematocrit (Bld) [Volume fraction] 42.1 % Normal 36.0-46.0 [facility] Comment on above: Performed By: #### 4 6939 #### LAB [address] [address] Maurice Coello M.D. [id number] Hemoglobin (Bld) [Mass/Vol] 13.7 g/dL Normal 12.0-16.0 [facility] Comment on above: Performed By: #### 4 9143 #### LAB [address] [address] Maurice Coello M.D. [id number] LACTIC ACID, WHOLE BLOOD 1.5 mmol/L Normal 0.6-2.0 [facility] Comment on above: Performed By: #### 4 6981 #### LAB [address] [address] Maurice Coello M.D. [id number] METHEMOGLOBIN < Normal 0.0-2.0 [facility] Comment on above: Performed By: #### 4 4924 #### LAB [address] [address] Maurice Coello M.D. [id number] O2HB 53.3 % Normal No established reference range [facility] Comment on above: Performed By: #### 4 2382 #### LAB [address] [address] Maurice Coello M.D. [id number] Oxygen saturation in Blood 54.8 % Normal 40.0-70.0 [facility] Comment on above: Performed By: #### 4 1780 #### [facility] LAB [address] [address] Maurice Coello M.D. [id number] PCO2 VENOUS 57.1 mm Hg High 41.0-51.0 [facility] Comment on above: Performed By: #### 4 6932 #### [facility] LAB [address] [address] Maurice Coello M.D. [id number] PH VENOUS 7.34 Normal 7.32-7.42 [facility] Comment on above: Performed By: #### 4 6932 #### [facility] [address] [address] Maurice Coello M.D. [id number] PO2 VENOUS 30 mm Hg Normal 25-40 [facility] Comment on above: Performed By: #### 4 6932 #### [facility] LAB [address] [address] Maurice Coello M.D. [id number] Potassium [Moles/Vol] 4.3 mmol/L Normal 3.5-5.1 [facility] Comment on above: Performed By: #### 4 6932 #### LAB [address] [address] Maurice Coello M.D. [id number] Sodium [Moles/Vol] 137 mmol/L Normal 135-145 [facility] Comment on above: Performed By: #### 4 6932 #### LAB [address] [address] Maurice Coello M.D. [id number] SPECIMEN SOURCE RADIANCE Not specified Normal [facility] Comment on above: Performed By: #### 4 6932 #### [facility] LAB [address] [address] Maurice Coello M.D. [id number] POC Venous Blood Gas Panel-P [facility] 02-13-2025 Base excess Calc (BldV) [Moles/Vol] 3.4 mmol/L High -2.0 - 2.0 [facility] Calcium.ionized [Mass/Vol] 4.6 mg/dL 4.5 - 5.3 mg/dL [facility] Carboxyhemoglobin (BldA) [Mass fraction] 2 High NINF [facility] Comment on above: Reference Ranges: [place]urban Non-smokers: <1.5% Smokers: 1.5-5.0% Heavy Smokers: 5.0-9.0% CO2 (BldV) [Partial pressure] 57.1 mm[Hg] High [facility] Glucose post fast [Mass/Vol] 124 mg/dL High 65 - 99 mg/dL [facility] Hematocrit (BldA) [Volume fraction] 42.1 % 36.0 - 46.0 % [facility] Inhaled oxygen concentration 21 % [facility] Interpretation and review of laboratory results Abnormal [facility] Lactate [Moles/Vol] 1.5 mmol/L 0.6 - 2. 0 mmol/L [facility] Methemoglobin (BldA) [Mass fraction] % 0.0 - 2.0 % [facility] Oxygen (BldV) [Partial pressure] 30 mm[Hg] [facility] Oxygen saturation in Venous blood 54.8 % 40.0 - 70.0 % [facility] Oxyhemoglobin (BldA) [Mass fraction] 53.3 % -100.0 - 101.0 % [facility] pH (BldV) 7.34 [pH] 7.32 - 7.42 [facility] Specimen source Nom (Unsp spec) Not specified [facility] TROPONIN X 2 (NOW AND REPEAT IN 2 HOURS)on 02-13-2025 TROPONIN T DELTA % NG/L -16 % Normal <20% of Baseline Troponin [facility] Comment on above: Performed By: #### 4 6969 #### LAB [address] [address] Maurice Coello M.D. [id number] TROPONIN T DELTA CHANGE INTERPRETATION Probable non-acute cardiac injury or late presentation of acute injury. Normal [facility] Comment on above: Performed By: #### 4 6957 #### [facility] [address] [address] Maurice Coello M.D. [id number] TROPONIN T NG/L 83 ng/L Off scale high <=14 [facility] Comment on above: Performed By: #### 4 6974 #### LAB [address] [address] Maurice Coello M.D. [id number] BASELINE TROPONIN T NG/L 99 ng/L Off scale high <=14 [facility] Comment on above: Performed By: #### 4 6608 ####[facility] LAB [address] [address] Maurice Coello M.D. [id number] TROPONIN T INTERPRETATION Possible acute cardiac injury. [facility] Comment on above: Performed By: #### 4 6608 ####[facility] LAB [address] [address] Maurice Coello M.D. [id number] BASELINE TROPONIN T NG/L 100 ng/L Off scale high <=14 [facility] Comment on above: Performed By: #### 4 6608 ####[facility] LAB [address] [address] Mauriec Coello M.D. [id number] TROPONIN T INTERPRETATION Possible acute cardiac injury. [facility] Comment on above: Performed By: #### 4 6608 ####[facility] LAB [address] [address] Maurice Coello M.D. [id number] Troponin x 2 (Now and Repeat in 2 hours)on 02-13-2025 Interpretation and review of laboratory results Abnormal [facility] Troponin T 99 ng/L Critically high NINF - 14 ng/L [facility] Troponin T Interpretation Possible acute cardiac injury. [facility] Troponin x 2 (Now and Repeat in 2 hours)Ordered By: Zaire Sparrow on 02-13-2025 Interpretation and review of laboratory results Abnormal [facility] Troponin T 100 ng/L Critically high NINF - 14 ng/L [facility] Troponin T Interpretation Possible acute cardiac injury. [facility] URINALYSISon 02-13-2025 AMORPHOUS CRYSTALS Few Abnormal None Seen , Rare [facility] Comment on above: Order Comment: Micro scopic examination is performed on all urinalysis samples and only positive findings are reported. The test for blood on the chemical analytic portion of urinalysis may also be positive due to hemoglobinuria and myoglobinuria and if red blood cells are present they are quantified by microscopic examination. Performed By: #### 4 6625 ####[facility] LAB [address] [address] Maurice Coello M.D. [id number] BACTERIA, URINE None Seen Normal None Seen [facility] Comment on above: Order Comment: Micro scopic examination is performed on all urinalysis samples and only positive findings are reported. The test for blood on the chemical analytic portion of urinalysis may also be positive due to hemoglobinuria and myoglobinuria and if red blood cells are present they are quantified by microscopic examination. Performed By: #### 4 6625 #### LAB [address] [address] Maurice Coello M.D. [id number] BILIRUBIN, URINE Negative Normal Negative [facility] Comment on above: Order Comment: Micro scopic examination is performed on all urinalysis samples and only positive findings are reported. The test for blood on the chemical analytic portion of urinalysis may also be positive due to hemoglobinuria and myoglobinuria and if red blood cells are present they are quantified by microscopic examination. Performed By: #### 4 6625 #### LAB [address] [address] Maurice Coello M.D. [id number] BLOOD, URINE Large Abnormal Negative [facility] Comment on above: Order Comment: Micro scopic examination is performed on all urinalysis samples and only positive findings are reported. The test for blood on the chemical analytic portion of urinalysis may also be positive due to hemoglobinuria and myoglobinuria and if red blood cells are present they are quantified by microscopic examination. Performed By: #### 4 6625 #### LAB [address] [address] Maurice Coello M.D. [id number] Clarity (U) Clear Normal Clear [facility] Comment on above: Order Comment: Micro scopic examination is performed on all urinalysis samples and only positive findings are reported. The test for blood on the chemical analytic portion of urinalysis may also be positive due to hemoglobinuria and myoglobinuria and if red blood cells are present they are quantified by microscopic examination. Performed By: #### 4 6625 ####[facility] LAB [address] [address] Maurice Coello M.D. [id number] Color (U) Colorless Normal Colorless, Yellow [facility] Comment on above: Order Comment: Micro scopic examination is performed on all urinalysis samples and only positive findings are reported. The test for blood on the chemical analytic portion of urinalysis may also be positive due to hemoglobinuria and myoglobinuria and if red blood cells are present they are quantified by microscopic examination. Performed By: #### 4 6625 #### LAB [address] [address] Maurice Coello M.D. [id number] Glucose Ql (U) Negative Normal Negative [facility] Comment on above: Order Comment: Micro scopic examination is performed on all urinalysis samples and only positive findings are reported. The test for blood on the chemical analytic portion of urinalysis may also be positive due to hemoglobinuria and myoglobinuria and if red blood cells are present they are quantified by microscopic examination. Performed By: #### 4 6625 #### LAB [address] [place] [address] Maurice Coello M.D. [id number] Ketones Ql (U) Negative Normal Negative [facility] Comment on above: Order Comment: Micro scopic examination is performed on all urinalysis samples and only positive findings are reported. The test for blood on the chemical analytic portion of urinalysis may also be positive due to hemoglobinuria and myoglobinuria and if red blood cells are present they are quantified by microscopic examination. Performed By: #### 4 6625 #### LAB [address] [address] Maurice Coello M.D. [id number] Leukocyte esterase Test strip Ql (U) Negative Normal Negative [facility] Comment on above: Order Comment: Micro scopic examination is performed on all urinalysis samples and only positive findings are reported. The test for blood on the chemical analytic portion of urinalysis may also be positive due to hemoglobinuria and myoglobinuria and if red blood cells are present they are quantified by microscopic examination. Performed By: #### 4 6625 #### LAB [address] [address] Maurice Coello M.D. [id number] NITRITE, URINE Negative Normal Negative [facility] Comment on above: Order Comment: Micro scopic examination is performed on all urinalysis samples and only positive findings are reported. The test for blood on the chemical analytic portion of urinalysis may also be positive due to hemoglobinuria and myoglobinuria and if red blood cells are present they are quantified by microscopic examination. Performed By: #### 4 6625 #### LAB [address] [address] Maurice Coello M.D. [id number] pH (U) 5.5 [pH] Normal 5.0-7.0 [facility] Comment on above: Order Comment: Micro scopic examination is performed on all urinalysis samples and only positive findings are reported. The test for blood on the chemical analytic portion of urinalysis may also be positive due to hemoglobinuria and myoglobinuria and if red blood cells are present they are quantified by microscopic examination. Performed By: #### 4 6625 #### LAB [address] [place] [address] Maurice Coello M.D. [id number] Protein (U) [Mass/Vol] 30 mg/dL Abnormal Negative [facility] Comment on above: Order Comment: Micro scopic [...] By: #### 4 6625 #### LAB [address] [place], [place] [address] Maurice Coello M.D. [id number] Specific gravity (U) [Rel density] 1.016 Normal 1.005-1.025 [facility] Comment on above: Order Comment: Micro scopic examination is performed on all urinalysis samples and only positive findings are reported. The test for blood on the chemical analytic portion of urinalysis may also be positive due to hemoglobinuria and myoglobinuria and if red blood cells are present they are quantified by microscopic examination. Performed By: #### 4 6625 #### LAB [address] [place], [place] [address] Maurice Coello M.D. [id number] SQUAMOUS EPITHELIAL < Normal 0-4 [facility] Comment on above: Order Comment: Micro scopic examination is performed on all urinalysis samples and only positive findings are reported. The test for blood on the chemical analytic portion of urinalysis may also be positive due to hemoglobinuria and myoglobinuria and if red blood cells are present they are quantified by microscopic examination. Performed By: #### 4 6625 #### LAB [address] [place], [place] [address] Maurice Coello M.D. [id number] TRANSITIONAL EPITHELIAL < Normal 0-1 [facility] Comment on above: Order Comment: Micro scopic examination is performed on all urinalysis samples and only positive findings are reported. The test for blood on the chemical analytic portion of urinalysis may also be positive due to hemoglobinuria and myoglobinuria and if red blood cells are present they are quantified by microscopic examination. Performed By: #### 4 6625 #### LAB [address] [place], [place] [address] Maurice Coello M.D. [id number] UROBILINOGEN, URINE <2.0 Normal <2.0 [facility] Comment on above: Order Comment: Micro scopic examination is performed on all urinalysis samples and only positive findings are reported. The test for blood on the chemical analytic portion of urinalysis may also be positive due to hemoglobinuria and myoglobinuria and if red blood cells are present they are quantified by microscopic examination. Performed By: #### 4 6625 #### LAB [address] [place], [place] [address] Maurice Coello M.D. [id number] WBC LM.HPF (Urine sed) [#/Area] 1 /[HPF] Normal 0-5 [facility] Comment on above: Order Comment: Micro scopic examination is performed on all urinalysis samples and only positive findings are reported. The test for blood on the chemical analytic portion of urinalysis may also be positive due to hemoglobinuria and myoglobinuria and if red blood cells are present they are quantified by microscopic examination. Performed By: #### 4 6625 #### LAB [address] [place], [place] [address] Maurice Coello M.D. [id number] URINE AEROBIC CULTUREon 02-04 URINE AEROBIC CULTURE URINE CULTURE < 10,000 CFU/mL of normal urogenital microbiota Normal [facility] Comment on above: Performed By: #### 4 4053 #### [facility] [address] [place], [place] [address] Arnel Marie M.D. [id number] UrinalysisOrdered By: Bhumi Teixeira on 02-13-2025 Bacteria Auto Ql (U) None Seen None Se en /hpf [facility] Bilirubin Ql (U) Negative Negative [facility] th Clarity Refractometry automated (U) Clear Clear [facility] Color (U) Colorless Colorless, Yellow [facility] Crystals.amorphous Computer assisted (U) [#/Area] Few Abnormal None Seen, Rare /hpf [facility] Epithelial cells.squamous Auto (Urine sed) [#/Area] [facility] Glucose Auto test strip (U) [Mass/Vol] Negative Negative mg/dL [facility] Hemoglobin Auto test strip Ql (U) Large Abnormal Negative [facility] Interpretation and review of laboratory results Abnormal [facility] Ketones (U) [Mass/Vol] Negative Negat radha mg/dL [facility] Leukocyte esterase Auto test strip Ql (U) Negative Negative [facility] Nitrite Auto test strip Ql (U) Negative Negative [facility] pH (U) 5.5 [pH] 5.0 - 7.0 [facility] Protein (U) [Mass/Vol] 30 mg/dL Abnormal Negative [facility] Comment on above: False positive resul ts may occur in urines with large amounts of hemoglobin, pH greater than 8.0, contrast medium, or disinfectants including ammonium compounds. Specific gravity (U) [Rel density] 1.016 1.005 - 1.025 [facility] Transitional cells Computer assisted (U) [#/Area] [facility] Urobilinogen (U) [Mass/Vol] mg/dL NINF - 2.0 mg/dL [facility] WBC Auto (Urine sed) [#/Area] 1 [facility] Microscopic examinat ion is performed on all urinalysis samples and only positive findings are reported. The test for blood on the chemical analytic portion of urinalysis may also be positive due to hemoglobinuria and myoglobinuria and if red blood cells are present they are quantified by microscopic examination. [facility] VBG (obtain and perform)on 0 02-13-2025 [facility] XR CHEST PA/APon 02-13-2025 XR CHEST [...] on MonFeb 13, 2025 5:20:06 PM EDT [facility] Comment on above: Order Comment: Injur [...] lung. The cardiac silhouette is not enlarged. [employer] Jason Panchal Serenity ryanne, DO - 02/13/2025 [...] No acute cardiopulmonary abnormality. Workstation ID: [id number] [facility] Radiology Study observation (narrative) [facility] XR Chest PA and Abdomen APOr dered By: Jason Panchal on 02-13-2025 [facility] Work Phone: Magnetic resonance imaging r eportOrdered By: Dev Escobar on 02-04-2025 Study report [facility] Imaging Services [address] [place] [address] Spine Cervical (Routine) MR#: [id number] Acct: [id number] Name: RADHA SHAFER ANIL Rep #: [id number] : 1960 F 64 From: Pet er Peer DO PCP: Dr. Jennifer Gordon MD Status: REG CLI Study:Spine Cervical (Routine) Date of Exam: 02/03/25 Exam# [id number] Ordering Dr: Paul Whitehead PROCEDURE: SPINE CERVICAL [...] severe at the C5-6 level. Reading Location: [facility] CC: DANIEL Archer; Dr. Jennifer Gordon MD ~ Phosphoric Acid Supervisor: Signed [facility] Spine Cervical (Routine)on 0 02-03-2025 Spine Cervical (Routine) Normal [facility] Orthopedic Visit Reporton Orthopedic Visit Report Normal [facility] Shoulder min 2 Viewson 01-21 Shoulder min 2 Views Normal [facility] Magnetic resonance imaging r eportOrdered By: Vaibhav Guevara on 01-14-2025 Study [address] [facility] Imaging Services [address] [place] [address] Spine Lumbar (Routine) MR#: [id number] Acct: [id number] Name: RADHA SHAFER Rep #: [id number] : 1960 F 64 From: Shavonne Guevara MD PCP: Dr. Jennifer Gordon MD Status: REG CLI Study:Spine Lumbar (Routine) Date of Exam: 01/13/25 Exam# [id number] Ordering Dr: Rusty Dozier MD PROCEDURE: SPINE [...] significant spinal canal or foraminal stenosis. L1-2: [id number]-ul-[id number] loss of disc height with diffuse disc bulging and anterior disc/osteophyte complex. No significant spinal canal or foraminal stenosis. L2-3: Diffuse disc bulging, asymmetric to the right with a superimposed right lateral disc protrusion, with [id number]-lx-[id number] loss of disc height. Relative narrowing of the right lateral recess. Mild facet arthropathy. Mild foraminal stenoses bilaterally. L3-4: Prominent diffuse disc bulging with moderate loss of disc height and lateral/anterior disc/osteophyte complexes. Small superimposed central disc protrusion. Xnidelud-ik-wfcalo spinal canal stenosis with near-complete effacement of CSF. Facet arthropathy. Mild ligamentum flavum hypertrophy. Moderate right and mild/moderate left foraminal stenoses. Narrowing of bilateral lateral recesses. L4-5: Hcmnhycx-gc-zsuznv loss of disc height with diffuse disc bulging, asymmetric to the right. Small superimposed central and left paracentral as well as right lateral disc protrusions. Facet arthropathy. Mild ligamentum flavum hypertrophy. Mknbmjzf-ex-tyckqz spinal canal stenosis with virtually complete effacement of CSF. Xjreqzrt-rs-xtnhax right and moderate left foraminal stenoses. Effacement of hhvci-auoqgap-walq-left lateral recesses L5-S1: Bulging with superimposed left mild diffuse disc foraminal and lateral disc protrusion contacting the exiting nerve root. Mild ligamentum flavum hypertrophy. No significant focal spinal canal stenosis. Facet arthropathy. Ksqbgtiw-vi-dshzkz left foraminal stenosis. Other: Focal narrowing of the spinal canal at T10-T11, not well evaluated as this is above the field of view of axial imaging. This may be related to a synovial cyst or facet arthropathy given the configuration on sagittal images. Additional cervicothoracic spondylosis on the player development manager, not well evaluated. Mild ectasia of the abdominal aorta to 2.4 x 2.4 cm. Tiny presumed renal cysts, incompletely characterized. MRI/Spine Lumbar (Routine) IMPRESSION: 1. Multilevel spondylosis with variable both spinal canal and foraminal stenosesup to moderate/severe as detailed. 2. Additional description as above. Reading Location: [facility] CC: Dr. Jennifer Gordon MD; Dr. Rusty Dozier MD ~ Phosphoric Acid Supervisor: Signed [facility] Spine Lumbar (Routine)on Spine Lumbar (Routine) Normal [facility] Cerv Spine 4 or 5 Viewson Cerv Spine 4 or 5 Views Normal [facility] Orthopedic Visit Reporton Orthopedic Visit Report Normal [facility] Emergency Department Summary on 01-01-2025 Emergency Department Summary Normal [facility] Neurology Visit Reporton Neurology Visit Report Normal [facility] CBC WITH AUTO DIFFERENTIALon 11-12-2024 AUTO NRBC 0.0 % Normal [facility] Comment on above: Performed By: #### L [id number] ####[facility] [address], [place] [address] Maurice Coello M.D. [id number] AUTO NRBC ABS COUNT 0.00 K/mcL Normal 0.00-0.00 [facility] Comment on above: Performed By: #### L [id number] ####[facility] [address], [place] [address] Maurice Coello M.D. [id number] BASOPHILS ABSOLUTE COUNT 0.06 K/mcL Normal 0.00-0.30 [facility] Comment on above: Performed By: #### L [id number] #### LAB [address] [address] Maurice Coello M.D. [id number] Basophils/100 WBC (Bld) 0.8 % Normal [facility] Comment on above: Performed By: #### L [id number] #### LAB [address] [address] Maurice Coello M.D. [id number] Eosinophils (Bld) [#/Vol] 0.17 10*3/uL Normal 0.00-0.50 [facility] Comment on above: Performed By: #### L [id number] #### LAB [address] [address] Maurice Coello M.D. [id number] Eosinophils/100 WBC (Bld) 2.3 % Normal [facility] Comment on above: Performed By: #### L [id number] #### LAB [address] [address] Maurice Coello M.D. [id number] Erythrocyte distribution width (RBC) [Ratio] 14.1 % Normal 11.6-14.8 [facility] Comment on above: Performed By: #### L [id number] #### LAB [address] [address] Maurice Coello M.D. [id number] Hematocrit (Bld) [Volume fraction] 36.2 % Normal 36.0-46.0 [facility] Comment on above: Performed By: #### L [id number] #### LAB [address] [address] Maurice Coello M.D. [id number] Hemoglobin (Bld) [Mass/Vol] 11.0 g/dL Low 12.0-16.0 [facility] Comment on above: Performed By: #### L [id number] ####[facility] [address] [address] Maurice Coello M.D. [id number] IG ABSOLUTE 0.03 K/mcL Normal 0.00-0.30 [facility] Comment on above: Performed By: #### L [id number] #### LAB [address] [address] Maurice Coello M.D. [id number] IG PERCENT 0.40 % Normal [facility] Comment on above: Result Comment: The IG parameter is the percentage of metamyelocytes, myelocytes and promyelocytes. An immature granulocyte count (IG) of 1% or more suggests the possibility of infection, an IG count of 3% is very likely related to an infection. Performed By: #### L [id number] #### LAB [address] [address] Maurice Coello M.D. [id number] Lymphocytes (Bld) [#/Vol] 1.60 10*3/uL Normal 0.90-4.00 [facility] Comment on above: Performed By: #### L [id number] #### LAB [address] [place] [address] Maurice Coello M.D. [id number] Lymphocytes/100 WBC (Bld) 21.3 % Normal [facility] Comment on above: Performed By: #### L [id number] #### LAB [address] [place] [address] Maurice Coello M.D. [id number] MCH (RBC) [Entitic mass] 26.3 pg Normal 26.0-34.0 [facility] Comment on above: Performed By: #### L [id number] #### LAB [address] [address] Maurice Coello M.D. [id number] MCV (RBC) [Entitic vol] 86.6 fL Normal 80.0-100.0 [facility] Comment on above: Performed By: #### L [id number] #### LAB [address] [place] [address] Maurice Coello M.D. [id number] MEAN CORPUSCULAR HEMOGLOBIN CONC 30.4 g/dL Low 31.0-37.0 [facility] Comment on above: Performed By: #### L [id number] #### LAB [address] [address] Maurice Coello M.D. [id number] Monocytes (Bld) [#/Vol] 0.56 10*3/uL Normal 0.30-0.90 [facility] Comment on above: Performed By: #### L [id number] #### LAB [address] [address] Maurice Coello M.D. [id number] Monocytes/100 WBC (Bld) 7.5 % Normal [facility] Comment on above: Performed By: #### L [id number] #### LAB [address] [address] Maurice Coello M.D. [id number] NEUTROPHILS ABSOLUTE COUNT 5.09 K/mcL Normal 1.70-7.00 [facility] Comment on above: Performed By: #### L [id number] #### LAB [address] [address] Maurice Coello M.D. [id number] Neutrophils/100 WBC (Bld) 67.7 % Normal [facility] Comment on above: Performed By: #### L [id number] #### LAB [address] [address] Maurice Coello M.D. [id number] Platelet mean volume (Bld) [Entitic vol] 10.5 fL Normal 9.4-12.4 [facility] Comment on above: Performed By: #### L [id number] #### LAB [address] [address] Maurice Coello M.D. [id number] Platelets (Bld) [#/Vol] 264 10*3/uL Normal 150-400 [facility] Comment on above: Performed By: #### L [id number] #### LAB [address] [address] Maurice Coello M.D. [id number] RBC (Bld) [#/Vol] 4.18 10*6/uL Normal 4.00-5.20 [facility] Comment on above: Performed By: #### L [id number] ####[facility] [address] [address] Maurice Coello M.D. [id number] WBC (Bld) [#/Vol] 7.51 10*3/uL Normal 4.50-11.00 [facility] Comment on above: Performed By: #### L [id number] ####[facility] [address] [address] Maurice Coello M.D. [id number] COMPREHENSIVE METABOLIC PANE Jett 11-12-2024 Albumin [Mass/Vol] 4.1 g/dL Normal 3.2-5.2 [facility] Comment on above: Order Comment: [facility] has implemented the eGFR calculation approach that does not have a coefficient for race that conforms to the NKF-ASN Task Force Recommendations. Performed By: #### 4 6932 #### LAB [address] [address] Maurice Coello M.D. [id number] ALP [Catalytic activity/Vol] 72 U/L Normal 40-150 [facility] Comment on above: Order Comment: [facility] has implemented the eGFR calculation approach that does not have a coefficient for race that conforms to the NKF-ASN Task Force Recommendations. Performed By: #### 4 6932 #### LAB [address] [address] Maurice Coello M.D. [id number] ALT [Catalytic activity/Vol] 16 U/L Normal 0-35 U/L [facility] Comment on above: Order Comment: [facility] has implemented the eGFR calculation approach that does not have a coefficient for race that conforms to the NKF-ASN Task Force Recommendations. Performed By: #### 4 6932 #### [facility] [address] [address] Maurice Coello M.D. [id number] Anion gap [Moles/Vol] 14 mmol/L Normal 10-20 [facility] Comment on above: Order Comment: [facility] has implemented the eGFR calculation approach that does not have a coefficient for race that conforms to the NKF-ASN Task Force Recommendations. Performed By: #### 4 6932 #### LAB [address] [address] Maurice Coello M.D. [id number] AST [Catalytic activity/Vol] 17 U/L Normal 0-35 U/L [facility] Comment on above: Order Comment: [facility] has implemented the eGFR calculation approach that does not have a coefficient for race that conforms to the NKF-ASN Task Force Recommendations. Performed By: #### 4 6932 #### LAB [address] [address] Maurice Coello M.D. [id number] BILIRUBIN TOTAL < Normal 0.0-1.3 [facility] Comment on above: Order Comment: [facility] has implemented the eGFR calculation approach that does not have a coefficient for race that conforms to the NKF-ASN Task Force Recommendations. Performed By: #### 4 6932 #### LAB [address] [address] Maurice Coello M.D. [id number] Calcium [Mass/Vol] 9.0 mg/dL Normal 8.4-10.2 [facility] Comment on above: Order Comment: [facility] has implemented the eGFR calculation approach that does not have a coefficient for race that conforms to the NKF-ASN Task Force Recommendations. Performed By: #### 4 6932 #### LAB [address] [address] Maurice Coello M.D. [id number] Chloride [Moles/Vol] 97 mmol/L Low 98-108 [facility] Comment on above: Order Comment: [facility] has implemented the eGFR calculation approach that does not have a coefficient for race that conforms to the NKF-ASN Task Force Recommendations. Performed By: #### 4 6932 #### LAB [address] [address] Maurice Coello M.D. [id number] Creatinine [Mass/Vol] 2.18 mg/dL High 0.60-1.10 [facility] Comment on above: Order Comment: [facility] has implemented the eGFR calculation approach that does not have a coefficient for race that conforms to the NKF-ASN Task Force Recommendations. Performed By: #### 4 6938 #### LAB [address], [place] [address] Maurice Coello M.D. [id number] EGFR 24 mL/min/1.73 m2 Low >=60 [facility] Comment on above: Order Comment: [facility] has implemented the eGFR calculation approach that does not have a coefficient for race that conforms to the NKF-ASN Task Force Recommendations. Result Comment: Ericka mated GFR was calculated using the 2020 CKD-EPI creatinine equation. Performed By: #### 4 6932 #### LAB [address], [place] [address] Maurice Coello M.D. [id number] Glucose [Mass/Vol] 92 mg/dL Normal 65-99 [facility] Comment on above: Order Comment: [facility] has implemented the eGFR calculation approach that does not have a coefficient for race that conforms to the NKF-ASN Task Force Recommendations. Performed By: #### 4 6903 #### LAB [address] [address] Maurice Coello M.D. [id number] HCO3 (Bld) [Moles/Vol] 28 mmol/L Normal 21-32 [facility] Comment on above: Order Comment: [facility] has implemented the eGFR calculation approach that does not have a coefficient for race that conforms to the NKF-ASN Task Force Recommendations. Performed By: #### 4 6982 #### LAB [address] [address] Maurice Coello M.D. [id number] Potassium [Moles/Vol] 5.1 mmol/L Normal 3.5-5.1 [facility] Comment on above: Order Comment: [facility] has implemented the eGFR calculation approach that does not have a coefficient for race that conforms to the NKF-ASN Task Force Recommendations. Performed By: #### 4 6932 #### LAB [address], [place] [address] Maurice Coello M.D. [id number] Protein [Mass/Vol] 7.2 g/dL Normal 6.0-8.0 [facility] Comment on above: Order Comment: [facility] has implemented the eGFR calculation approach that does not have a coefficient for race that conforms to the NKF-ASN Task Force Recommendations. Performed By: #### 4 6932 #### LAB [address], [place] [address] Maurice Coello M.D. [id number] Sodium [Moles/Vol] 134 mmol/L Low 135-145 [facility] Comment on above: Order Comment: [facility] has implemented the eGFR calculation approach that does not have a coefficient for race that conforms to the NKF-ASN Task Force Recommendations. Performed By: #### 4 6932 #### LAB [address] [address] Maurice Coello M.D. [id number] Urea nitrogen [Mass/Vol] 38 mg/dL High 8-25 [facility] Comment on above: Order Comment: [facility] has implemented the eGFR calculation approach that does not have a coefficient for race that conforms to the NKF-ASN Task Force Recommendations. Performed By: #### 4 6932 #### LAB [address], [place] [address] Maurice Coello M.D. [id number] Urea nitrogen/Creatinine [Mass ratio] 17.4 mg/mg Normal 10.0-20.0 [facility] Comment on above: Order Comment: [facility] has implemented the eGFR calculation approach that does not have a coefficient for race that conforms to the NKF-ASN Task Force Recommendations. Performed By: #### 4 6932 #### LAB [address], [place] [address] Maurice Coello M.D. [id number] CT KIDNEY STONEon 11-12-2024 CT KIDNEY STONE [...] MonNov 12, 2024 7:20:28 PM EST Normal [facility] Comment on above: Order Comment: Injur y/Trauma or Illness?:Illness/OtherHow long have you had these symptoms (acute/chronic)?:AcuteReason for exam?:Right sided abdominal/flank pain x2 weeksType of Exam?:InitialAdditional signs and symptoms?:Denies N/V/D, CKD hx thus no IV contrast ED Prov Noteon 11-12-2024 ED Prov Note ED PROVIDER NOTE [facility] EM[facility] NAME: Radha Shafer AGE: 64 y.o. : 1960 VISIT DATE: 11/12/2024 CSN: [id number] PCP: Erin, Physician Chief Complaint Patient presents [...] PROCEDURE; Surgeon: Jada Vargas MD; Location: [facility]; Service: Colorectal CARDIAC CATHETERIZATION N/A 09/26/2022 Procedure: Coronary Angiogram; Surgeon: Tor Long MD; Location: [facility]; Service: Cardiovascular CARDIOVASCULAR STRESS TEST CHOLECYSTECTOMY COLONOSCOPY with biopsies COLONOSCOPY N/A 02/17/2022 Procedure: COLONOSCOPY; Surgeon: Jada Vargas MD; Location: [facility]; Service: Colorectal EGD N/A 08/15/2022 Procedure: ESOPHAGOGASTRODUODENOSC OPY WITH BIOPSY; Surgeon: Tyshawn Santos MD; Location: Endo; Service: Gastroenterology GALLBLADDER HC LEFT HEART CATH N/A 09/26/2022 Procedure: Left Heart Cath; Surgeon: Tor Long MD; Location: [facility]; Service: Cardiovascular HYSTERECTOMY JOINT REPLACEMENT Left knee ORTHOPEDIC SURGERY r wrist surgery, left ankle, right rotator cuff ROTATOR CUFF REPAIR Right SIGMOIDOSCOPY FLEXIBLE N/A 06/23/2022 Procedure: SIGMOIDOSCOPY FLEXIBLE WITH BIOPSY; Surgeon: Tyshawn Santos MD; Location: Endo; Service: Gastroenterology THYROIDECTOMY N/A 07/15/2015 Procedure: TOTAL THYROIDECTOMY; Surgeon: Lopez Alonso MD; Location: [facility]; Service: US ECHO TRANSTHORACIC FOLLOWUP [...] Socioeconomic History Marital status: Occupational History 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 Normal [facility] LIPASEon 11-12-2024 Lipase [Catalytic activity/Vol] 66 U/L High 15-65 [facility] Comment on above: Performed By: #### 4 6086 #### LAB [address] [address] Maurice Coello M.D. [id number] URINALYSISon 11-12-2024 BACTERIA, URINE Rare Abnormal None Seen [facility] Comment on above: Order Comment: Micro scopic examination is performed on all urinalysis samples and only positive findings are reported. The test for blood on the chemical analytic portion of urinalysis may also be positive due to hemoglobinuria and myoglobinuria and if red blood cells are present they are quantified by microscopic examination. Performed By: #### 4 6625 #### LAB [address] [address] Maurice Coello M.D. [id number] BILIRUBIN, URINE Negative Normal Negative [facility] Comment on above: Order Comment: Micro scopic examination is performed on all urinalysis samples and only positive findings are reported. The test for blood on the chemical analytic portion of urinalysis may also be positive due to hemoglobinuria and myoglobinuria and if red blood cells are present they are quantified by microscopic examination. Performed By: #### 4 6625 #### LAB [address] [address] Maurice Coello M.D. [id number] BLOOD, URINE Negative Normal Negative [facility] Comment on above: Order Comment: Micro scopic examination is performed on all urinalysis samples and only positive findings are reported. The test for blood on the chemical analytic portion of urinalysis may also be positive due to hemoglobinuria and myoglobinuria and if red blood cells are present they are quantified by microscopic examination. Performed By: #### 4 6625 #### LAB [address] [address] Maurice Coello M.D. [id number] Clarity (U) Clear Normal Clear [facility] Comment on above: Order Comment: Micro scopic examination is performed on all urinalysis samples and only positive findings are reported. The test for blood on the chemical analytic portion of urinalysis may also be positive due to hemoglobinuria and myoglobinuria and if red blood cells are present they are quantified by microscopic examination. Performed By: #### 4 6625 #### LAB [address] [id number] Maurice Coello M.D. [id number] Color (U) Colorless Normal Colorless, Yellow [facility] Comment on above: Order Comment: Micro scopic examination is performed on all urinalysis samples and only positive findings are reported. The test for blood on the chemical analytic portion of urinalysis may also be positive due to hemoglobinuria and myoglobinuria and if red blood cells are present they are quantified by microscopic examination. Performed By: #### 4 6625 #### LAB [address] [address] Maurice Coello M.D. [id number] Glucose Ql (U) Negative Normal Negative, >=1000 [facility] Comment on above: Order Comment: Micro scopic examination is performed on all urinalysis samples and only positive findings are reported. The test for blood on the chemical analytic portion of urinalysis may also be positive due to hemoglobinuria and myoglobinuria and if red blood cells are present they are quantified by microscopic examination. Performed By: #### 4 6625 #### LAB [address] [address] Maurice Coello M.D. [id number] Hyaline casts LM Ql (Urine sed) 0-2 Normal 0-2 [facility] Comment on above: Order Comment: Micro scopic examination is performed on all urinalysis samples and only positive findings are reported. The test for blood on the chemical analytic portion of urinalysis may also be positive due to hemoglobinuria and myoglobinuria and if red blood cells are present they are quantified by microscopic examination. Performed By: #### 4 6625 #### LAB [address] [address] Maurice Coello M.D. [id number] Ketones Ql (U) Negative Normal Negative [facility] Comment on above: Order Comment: Micro scopic examination is performed on all urinalysis samples and only positive findings are reported. The test for blood on the chemical analytic portion of urinalysis may also be positive due to hemoglobinuria and myoglobinuria and if red blood cells are present they are quantified by microscopic examination. Performed By: #### 4 6625 #### LAB [address] [id number] Maurice Coello M.D. [id number] Leukocyte esterase Test strip Ql (U) Trace Abnormal Negative [facility] Comment on above: Order Comment: Micro scopic examination is performed on all urinalysis samples and only positive findings are reported. The test for blood on the chemical analytic portion of urinalysis may also be positive due to hemoglobinuria and myoglobinuria and if red blood cells are present they are quantified by microscopic examination. Performed By: #### 4 6625 #### LAB [address] [address] Maurice Coello M.D. [id number] NITRITE, URINE Negative Normal Negative [facility] Comment on above: Order Comment: Micro scopic examination is performed on all urinalysis samples and only positive findings are reported. The test for blood on the chemical analytic portion of urinalysis may also be positive due to hemoglobinuria and myoglobinuria and if red blood cells are present they are quantified by microscopic examination. Performed By: #### 4 6625 #### LAB [address] [id number] Maurice Coello M.D. [id number] pH (U) 5.0 [pH] Normal 5.0-7.0 [facility] Comment on above: Order Comment: Micro scopic examination is performed on all urinalysis samples and only positive findings are reported. The test for blood on the chemical analytic portion of urinalysis may also be positive due to hemoglobinuria and myoglobinuria and if red blood cells are present they are quantified by microscopic examination. Performed By: #### 4 6625 #### LAB [address] [address] Maurice Coello M.D. [id number] PROTEIN, URINE Negative Normal Negative [facility] Comment on above: Order Comment: Micro scopic examination is performed on all urinalysis samples and only positive findings are reported. The test for blood on the chemical analytic portion of urinalysis may also be positive due to hemoglobinuria and myoglobinuria and if red blood cells are present they are quantified by microscopic examination. Performed By: #### 4 6625 #### LAB [address] [address] Maurice Coello M.D. [id number] RBC, URINE < Normal 0-3 [facility] Comment on above: Order Comment: Micro scopic examination is performed on all urinalysis samples and only positive findings are reported. The test for blood on the chemical analytic portion of urinalysis may also be positive due to hemoglobinuria and myoglobinuria and if red blood cells are present they are quantified by microscopic examination. Performed By: #### 4 6625 #### LAB [address] [address] Maurice Coello M.D. [id number] Specific gravity (U) [Rel density] 1.009 Normal 1.005-1.025 [facility] Comment on above: Order Comment: Micro scopic examination is performed on all urinalysis samples and only positive findings are reported. The test for blood on the chemical analytic portion of urinalysis may also be positive due to hemoglobinuria and myoglobinuria and if red blood cells are present they are quantified by microscopic examination. Performed By: #### 4 6625 #### LAB [address] [id number] Maurice Coello M.D. [id number] SQUAMOUS EPITHELIAL 3 /hpf Normal 0-4 [facility] Comment on above: Order Comment: Micro scopic examination is performed on all urinalysis samples and only positive findings are reported. The test for blood on the chemical analytic portion of urinalysis may also be positive due to hemoglobinuria and myoglobinuria and if red blood cells are present they are quantified by microscopic examination. Performed By: #### 4 6625 #### LAB [address] [address] Maurice Coello M.D. [id number] TRANSITIONAL EPITHELIAL 1 /hpf Normal 0-1 [facility] Comment on above: Order Comment: Micro scopic examination is performed on all urinalysis samples and only positive findings are reported. The test for blood on the chemical analytic portion of urinalysis may also be positive due to hemoglobinuria and myoglobinuria and if red blood cells are present they are quantified by microscopic examination. Performed By: #### 4 6625 #### LAB [address] [place], [place] [address] Maurice Coello M.D. [id number] UROBILINOGEN, URINE <2.0 Normal <2.0 [facility] Comment on above: Order Comment: Micro scopic examination is performed on all urinalysis samples and only positive findings are reported. The test for blood on the chemical analytic portion of urinalysis may also be positive due to hemoglobinuria and myoglobinuria and if red blood cells are present they are quantified by microscopic examination. Performed By: #### 4 6625 #### LAB [address] [place], [place] [address] Maurice Coello M.D. [id number] WBC LM.HPF (Urine sed) [#/Area] 2 /[HPF] Normal 0-5 [facility] Comment on above: Order Comment: Micro scopic examination is performed on all urinalysis samples and only positive findings are reported. The test for blood on the chemical analytic portion of urinalysis may also be positive due to hemoglobinuria and myoglobinuria and if red blood cells are present they are quantified by microscopic examination. Performed By: #### 4 6625 #### LAB [address] [place], [place] [address] Maurice Coello M.D. [id number] Internal Medicine Office Vis tyshawn 09-30-2024 Internal Medicine Office Visit Normal [facility] CBC Auto Differentialon 09-06 Basophils (Bld) [#/Vol] 0.01 10*3/uL [facility] Basophils/100 WBC (Bld) 0.1 % [facility] Eosinophils (Bld) [#/Vol] 0 10*3/uL [facility] Eosinophils/100 WBC (Bld) 0 % [facility] Erythrocyte distribution width (RBC) [Entitic vol] 14.5 % 11.6 - 14.8 % [facility] Hematocrit (Bld) [Volume fraction] 34.2 % Low 36.0 - 46.0 % [facility] Hemoglobin (Bld) [Mass/Vol] 10.2 g/dL Low 12.0 - 16.0 g/dL [facility] Immature granulocytes (Bld) [#/Vol] 0.08 10*3/uL [facility] Immature granulocytes/100 WBC (Bld) 0.7 % [facility] Comment on above: The IG parameter is the percentage of metamyelocytes, myelocytes and promyelocytes. An immature granulocyte count (IG) of 1% or more suggests the possibility of infection, an IG count of 3% is very likely related to an infection. Interpretation and review of laboratory results Abnormal [facility] Lymphocytes (Bld) [#/Vol] 0.72 10*3/uL Low [facility] Lymphocytes/100 WBC (Bld) 6.4 % [facility] MCH (RBC) [Entitic mass] 25.9 pg Low 26.0 - 34.0 pg [facility] MCHC (RBC) [Mass/Vol] 29.8 g/dL Low 31.0 - 37.0 g/dL [facility] MCV (RBC) [Entitic vol] 86.8 fL 80.0 - 100.0 fL [facility] Monocytes (Bld) [#/Vol] 0.32 10*3/uL [facility] Monocytes/100 WBC (Bld) 2.9 % [facility] Neutrophils (Bld) [#/Vol] 10.09 10*3/uL High [facility] Neutrophils/100 WBC (Bld) 89.9 % [facility] Nucleated RBC (Bld) [#/Vol] 0 10*3/uL [facility] Nucleated RBC/100 WBC (Bld) [Ratio] 0 % [facility] Platelet mean volume (Bld) [Entitic vol] 10.2 fL 9.4 - 12.4 fL [facility] Platelets (Bld) [#/Vol] 231 10*3/uL [facility] RBC (Bld) [#/Vol] 3.94 10*6/uL Low [facility] ealth WBC (Bld) [#/Vol] 11.22 10*3/uL High [facility] CBC WITH AUTO DIFFERENTIALon 09-23-2024 AUTO NRBC 0.0 % Normal [facility] Comment on above: Performed By: #### L [id number] ####[facility] LAB [address] [place], [place] [address] Maurice Coello M.D. [id number] AUTO NRBC ABS COUNT 0.00 K/mcL Normal 0.00-0.00 [facility] Comment on above: Performed By: #### L [id number] #### LAB [address] [address] Maurice Coello M.D. [id number] BASOPHILS ABSOLUTE COUNT 0.01 K/mcL Normal 0.00-0.30 [facility] Comment on above: Performed By: #### L [id number] #### LAB [address] [address] Maurice Coello M.D. [id number] Basophils/100 WBC (Bld) 0.1 % Normal [facility] Comment on above: Performed By: #### L [id number] #### LAB [address] [address] Maurice Coello M.D. [id number] Eosinophils (Bld) [#/Vol] 0.00 10*3/uL Normal 0.00-0.50 [facility] Comment on above: Performed By: #### L [id number] #### LAB [address] [address] Maurice Coello M.D. [id number] Eosinophils/100 WBC (Bld) 0.0 % Normal [facility] Comment on above: Performed By: #### L [id number] #### LAB [address] [place] [address] Maurice Coello M.D. [id number] Erythrocyte distribution width (RBC) [Ratio] 14.5 % Normal 11.6-14.8 [facility] Comment on above: Performed By: #### L [id number] #### LAB [address] [place] [address] Maurice Coello M.D. [id number] Hematocrit (Bld) [Volume fraction] 34.2 % Low 36.0-46.0 [facility] Comment on above: Performed By: #### L [id number] #### LAB [address] [place] [address] Maurice Coello M.D. [id number] Hemoglobin (Bld) [Mass/Vol] 10.2 g/dL Low 12.0-16.0 [facility] Comment on above: Performed By: #### L [id number] #### LAB [address] [address] Maurice Coello M.D. [id number] IG ABSOLUTE 0.08 K/mcL Normal 0.00-0.30 [facility] Comment on above: Performed By: #### L [id number] #### LAB [address] [address] Maurice Ceollo M.D. [id number] IG PERCENT 0.70 % [facility] Comment on above: Result Comment: The IG parameter is the percentage of metamyelocytes, myelocytes and promyelocytes. An immature granulocyte count (IG) of 1% or more suggests the possibility of infection, an IG count of 3% is very likely related to an infection. Performed By: #### L [id number] #### LAB [address] [address] Maurice Coello M.D. [id number] Lymphocytes (Bld) [#/Vol] 0.72 10*3/uL Low 0.90-4.00 [facility] Comment on above: Performed By: #### L [id number] #### LAB [address] [address] Maurice Coello M.D. [id number] Lymphocytes/100 WBC (Bld) 6.4 % [facility] Comment on above: Performed By: #### L [id number] #### LAB [address] [address] Maurice Coello M.D. [id number] MCH (RBC) [Entitic mass] 25.9 pg Low 26.0-34.0 [facility] Comment on above: Performed By: #### L [id number] #### LAB [address] [address] Maurice Coello M.D. [id number] MCV (RBC) [Entitic vol] 86.8 fL Normal 80.0-100.0 [facility] Comment on above: Performed By: #### L [id number] #### LAB [address] [address] Maurice Coello M.D. [id number] MEAN CORPUSCULAR HEMOGLOBIN CONC 29.8 g/dL Low 31.0-37.0 [facility] Comment on above: Performed By: #### L [id number] #### LAB [address] [address] Maurice Coello M.D. [id number] Monocytes (Bld) [#/Vol] 0.32 10*3/uL Normal 0.30-0.90 [facility] Comment on above: Performed By: #### L [id number] #### LAB [address] [address] Maurice Coello M.D. [id number] Monocytes/100 WBC (Bld) 2.9 % Normal [facility] Comment on above: Performed By: #### L [id number] #### LAB [address] [address] Maurice Coello M.D. [id number] NEUTROPHILS ABSOLUTE COUNT 10.09 K/mcL High 1.70-7.00 [facility] Comment on above: Performed By: #### L [id number] #### LAB [address] [address] Maurice Coello M.D. [id number] Neutrophils/100 WBC (Bld) 89.9 % Normal [facility] Comment on above: Performed By: #### L [id number] #### LAB [address] [address] Maurice Coello M.D. [id number] Platelet mean volume (Bld) [Entitic vol] 10.2 fL Normal 9.4-12.4 [facility] Comment on above: Performed By: #### L [id number] #### LAB [address] [place] [address] Maurice Coello M.D. [id number] Platelets (Bld) [#/Vol] 231 10*3/uL Normal 150-400 [facility] Comment on above: Performed By: #### L [id number] ####[facility] LAB [address] [address] Maurice Coello M.D. [id number] RBC (Bld) [#/Vol] 3.94 10*6/uL Low 4.00-5.20 [facility] Comment on above: Performed By: #### L [id number] ####[facility] LAB [address] [address] Maurice Coello M.D. [id number] WBC (Bld) [#/Vol] 11.22 10*3/uL High 4.50-11.00 [facility] Comment on above: Performed By: #### L [id number] ####[facility] LAB [address] [address] Maurice Coello M.D. [id number] CK [Catalytic activity/Vol]o n 09-23-2024 Interpretation and review of laboratory results Abnormal [facility] COMPREHENSIVE METABOLIC PANE Jett 09-23-2024 Albumin [Mass/Vol] 3.7 g/dL Normal 3.2-5.2 [facility] Comment on above: Order Comment: Injur y/Trauma or Illness?:Illness/Other How long have you had these symptoms (acute/chronic)?:Chronic Reason for exam?:A-fib [facility] TO READ Type of Exam?:Initial Additional signs and symptoms?:n Performed By: #### 4 6126 ####[facility] LAB [address] [address] Maurice Coello M.D. [id number] ALP [Catalytic activity/Vol] 82 U/L Normal 40-150 [facility] Comment on above: Order Comment: Injur y/Trauma or Illness?:Illness/Other How long have you had these symptoms (acute/chronic)?:Chronic Reason for exam?:A-fib [facility] TO READ Type of Exam?:Initial Additional signs and symptoms?:n Performed By: #### 4 6126 ####[facility] LAB [address] [address] Maurice Coello M.D. [id number] ALT [Catalytic activity/Vol] 17 U/L Normal 0-35 U/L [facility] Comment on above: Order Comment: Injur y/Trauma or Illness?:Illness/Other How long have you had these symptoms (acute/chronic)?:Chronic Reason for exam?:A-fib [facility] TO READ Type of Exam?:Initial Additional signs and symptoms?:n Performed By: #### 4 6126 #### LAB [address] [address] Maurice Coello M.D. [id number] Anion gap [Moles/Vol] 13 mmol/L Normal 10-20 [facility] Comment on above: Order Comment: Injur y/Trauma or Illness?:Illness/Other How long have you had these symptoms (acute/chronic)?:Chronic Reason for exam?:A-fib [facility] TO READ Type of Exam?:Initial Additional signs and symptoms?:n Performed By: #### 4 6126 #### LAB [address] [address] Maurice Coello M.D. [id number] AST [Catalytic activity/Vol] 42 U/L High 0-35 U/L [facility] Comment on above: Order Comment: Injur y/Trauma or Illness?:Illness/Other How long have you had these symptoms (acute/chronic)?:Chronic Reason for exam?:A-fib [facility] TO READ Type of Exam?:Initial Additional signs and symptoms?:n Performed By: #### 4 6126 #### LAB [address] [address] Maurice Coello M.D. [id number] BILIRUBIN TOTAL < Normal 0.0-1.3 [facility] Comment on above: Order Comment: Injur y/Trauma or Illness?:Illness/Other How long have you had these symptoms (acute/chronic)?:Chronic Reason for exam?:A-fib [facility] TO READ Type of Exam?:Initial Additional signs and symptoms?:n Performed By: #### 4 6126 #### LAB [address] [address] Maurice Coello M.D. [id number] Calcium [Mass/Vol] 9.0 mg/dL Normal 8.4-10.2 [facility] Comment on above: Order Comment: Injur y/Trauma or Illness?:Illness/Other How long have you had these symptoms (acute/chronic)?:Chronic Reason for exam?:A-fib [facility] TO READ Type of Exam?:Initial Additional signs and symptoms?:n Performed By: #### 4 6126 #### LAB [address] [address] Maurice Coello M.D. [id number] Chloride [Moles/Vol] 98 mmol/L Normal 98-108 [facility] Comment on above: Order Comment: Injur y/Trauma or Illness?:Illness/Other How long have you had these symptoms (acute/chronic)?:Chronic Reason for exam?:A-fib [facility] TO READ Type of Exam?:Initial Additional signs and symptoms?:n Performed By: #### 4 6126 #### LAB [address] [address] Maurice Coello M.D. [id number] Creatinine [Mass/Vol] 1.28 mg/dL High 0.60-1.10 [facility] Comment on above: Order Comment: Injur y/Trauma or Illness?:Illness/Other How long have you had these symptoms (acute/chronic)?:Chronic Reason for exam?:A-fib [facility] TO READ Type of Exam?:Initial Additional signs and symptoms?:n Performed By: #### 4 6126 #### LAB [address] [address] Maurice Coello M.D. [id number] EGFR 46 mL/min/1.73 m2 Low >=60 [facility] Comment on above: Order Comment: Injur y/Trauma or Illness?:Illness/Other How long have you had these symptoms (acute/chronic)?:Chronic Reason for exam?:A-fib [facility] TO READ Type of Exam?:Initial Additional signs and symptoms?:n Result Comment: Ericka rodriguez GFR was calculated using the 2020 CKD-EPI creatinine equation. Performed By: #### 4 6126 #### LAB [address] [address] Maurice Coello M.D. [id number] Glucose [Mass/Vol] 121 mg/dL High 65-99 [facility] Comment on above: Order Comment: Injur y/Trauma or Illness?:Illness/Other How long have you had these symptoms (acute/chronic)?:Chronic Reason for exam?:A-fib [facility] TO READ Type of Exam?:Initial Additional signs and symptoms?:n Performed By: #### 4 6126 #### LAB [address] [address] Maurice Coello M.D. [id number] HCO3 (Bld) [Moles/Vol] 30 mmol/L Normal 21-32 [facility] Comment on above: Order Comment: Injur y/Trauma or Illness?:Illness/Other How long have you had these symptoms (acute/chronic)?:Chronic Reason for exam?:A-fib [facility] TO READ Type of Exam?:Initial Additional signs and symptoms?:n Performed By: #### 4 6126 #### LAB [address] [address] Maurice Coello M.D. [id number] Potassium [Moles/Vol] 4.8 mmol/L Normal 3.5-5.1 [facility] Comment on above: Order Comment: Injur y/Trauma or Illness?:Illness/Other How long have you had these symptoms (acute/chronic)?:Chronic Reason for exam?:A-fib [facility] TO READ Type of Exam?:Initial Additional signs and symptoms?:n Performed By: #### 4 6126 #### LAB [address] [address] Maurice Coello M.D. [id number] Protein [Mass/Vol] 6.4 g/dL Normal 6.0-8.0 [facility] Comment on above: Order Comment: Injur y/Trauma or Illness?:Illness/Other How long have you had these symptoms (acute/chronic)?:Chronic Reason for exam?:A-fib [facility] TO READ Type of Exam?:Initial Additional signs and symptoms?:n Performed By: #### 4 6126 #### LAB [address] [address] Maurice Coello M.D. [id number] Sodium [Moles/Vol] 136 mmol/L Normal 135-145 [facility] Comment on above: Order Comment: Injur y/Trauma or Illness?:Illness/Other How long have you had these symptoms (acute/chronic)?:Chronic Reason for exam?:A-fib [facility] TO READ Type of Exam?:Initial Additional signs and symptoms?:n Performed By: #### 4 6126 #### LAB [address] [address] Maurice Coello M.D. [id number] Urea nitrogen [Mass/Vol] 24 mg/dL Normal 8-25 [facility] Comment on above: Order Comment: Injur y/Trauma or Illness?:Illness/Other How long have you had these symptoms (acute/chronic)?:Chronic Reason for exam?:A-fib [facility] TO READ Type of Exam?:Initial Additional signs and symptoms?:n Performed By: #### 4 6126 #### LAB [address] [address] Maurice Coello M.D. [id number] Urea nitrogen/Creatinine [Mass ratio] 18.8 mg/mg Normal 10.0-20.0 [facility] Comment on above: Order Comment: Injur y/Trauma or Illness?:Illness/Other How long have you had these symptoms (acute/chronic)?:Chronic Reason for exam?:A-fib [facility] TO READ Type of Exam?:Initial Additional signs and symptoms?:n Performed By: #### 4 6126 #### LAB [address] [place], [place] [address] Maurice Coello M.D. [id number] CPKon 09-23-2024 CPK 478 U/L High 40-170 [facility] Comment on above: Performed By: #### 4 8261 #### LAB [address] [place], [place] [address] Maurice Coello M.D. [id number] CPK NO MBon 09-23-2024 CK [Catalytic activity/Vol] 478 U/L High 40 - 170 U/L [facility] Comprehensive metabolic 2000 panelOrdered By: Rachel Hobson on 09-23-2024 Albumin [Mass/Vol] 3.7 g/dL 3.2 - 5.2 g/dL [facility] ALP [Catalytic activity/Vol] 82 U/L 40 - 150 U/L [facility] ALT [Catalytic activity/Vol] 17 U/L 0-35 U/L [facility] Anion gap [Moles/Vol] 13 mmol/L 10 - 2 0 mmol/L [facility] AST [Catalytic activity/Vol] 42 U/L High 0-35 U/L [facility] Bilirubin [Mass/Vol] mg/dL 0.0 - 1 .3 mg/dL [facility] Calcium [Mass/Vol] 9 mg/dL 8.4 - 10. 2 mg/dL [facility] Chloride [Moles/Vol] 98 mmol/L 98 - 10 8 mmol/L [facility] Creatinine [Mass/Vol] 1.28 mg/dL High 0.60 - 1.10 mg/dL [facility] GFR/1.73 sq M.predicted CKD-EPI (S/P/Bld) [Vol rate/Area] 46 Low - PINF [facility] Comment on above: Estimated GFR was ca lculated using the 2020 CKD-EPI creatinine equation. Glucose [Mass/Vol] 121 mg/dL High 65 - 99 mg/dL [facility] HCO3 [Moles/Vol] 30 mmol/L 21 - 32 mmol/L [facility] Interpretation and review of laboratory results Abnormal [facility] Potassium [Moles/Vol] 4.8 mmol/L 3.5 - 5.1 mmol/L [facility] Protein [Mass/Vol] 6.4 g/dL 6.0 - 8.0 g/dL [facility] Sodium [Moles/Vol] 136 mmol/L 135 - 145 mmol/L [facility] Urea nitrogen [Mass/Vol] 24 mg/dL 8 - 25 mg/dL [facility] Urea nitrogen/Creatinine [Mass ratio] 18.8 mg/mg 10.0 - 20.0 [facility] has implemented the eGFR calculation approach that does not have a coefficient for race that conforms to the NKF-ASN Task Force Recommendations. [facility] ECHOCARDIOGRAM COMPLETEon ECHOCARDIOGRAM COMPLETE Patient Info Name: RADHA SHAFER Age: 64 years : 1960 Gender: Female Ht: 165 cm Wt: 104 kg BSA: 2.23 m2 HR: 73 bpm BP: 153 / 74 mmHg Heart Rhythm: Sinus Rhythm Technical Quality: Fair Exam Date: 09/23/2024 2:31 PM Patient Status: Inpatient Manufacturing Lead: Martin Mace RCDS Exam Type: ECHOCARDIOGRAM COMPLETE Study Info Indications - Dyspnea R06.00 - Dyspnea, unspecified Referring Physician: ALEKSANDAR Mccoy; [id number] BMI: 38.11 kg/m2 Summary 1. Normal LV [...] Hypertension: Yes Diabetic Therapy: Oral Myocardial Infarction (CO): No Obesity: Yes Date of Last Tobacco [...] mmHg MV VTI 36 cm MV Decel Stark 408 cm/s2 MV PHT 67 ms MV [...] cm/s >=9.5 (more content not included)... Normal [facility] Echo completeOrdered By: Sravani Back on 09-23-2024 Aortic valve area 3.61630 cm [facility] Work Phone: AV mean gradient 3.36563 mmHg [facility] Work Phone: [phone] AV peak gradient 5.25557 mmHg [facility] Work Phone: EF [phone] % [facility] Work Phone: [phone] [facility] Work Phone: Echo completeon 09-23-2024 Patient Info Name: RADHA SHAFER Age: 64 years : 1960 Gender: Female Ht: 165 cm Wt: 104 kg BSA: 2.23 m2 HR: 73 bpm BP: 153 / 74 mmHg Heart Rhythm: Sinus Rhythm Technical Quality: Fair Exam Date: 09/23/2024 2:31 PM Patient Status: Inpatient Manufacturing Lead: Martin Mace RCDS Exam Type: ECHOCARDIOGRAM COMPLETE Study Info Indications - Dyspnea R06.00 - Dyspnea, unspecified Referring Physician: ALEKSANDAR Mccoy; [id number] BMI: 38.11 kg/m2 Summary 1. Normal LV [...] Hypertension: Yes Diabetic Therapy: Oral Myocardial Infarction (CO): No Obesity: Yes Date of Last Tobacco [...] Date: 09/23/2024 2:31 PM Patient Status: Inpatient Manufacturing Lead: Martin Mace RCDS Exam Type: ECHOCARDIOGRAM COMPLETE Study Info Indications - Dyspnea R06.00 - Dyspnea, unspecified Referring Physician: ALEKSANDAR Mccoy; [id number] BMI: 38.11 kg/m2 Summary 1. Normal LV [...] Hypertension: Yes Diabetic Therapy: Oral Myocardial Infarction (CO): No Obesity: Yes Date of Last Tobacco [...] mmHg MV VTI 36 cm MV Decel Stark 408 cm/s2 MV PHT 67 ms MV [...] Annular TDI ------ (more content not included)... [facility] MAGNESIUM LEVELon 09-23-2024 Magnesium [Mass/Vol] 2.0 mg/dL Normal 1.6-2.4 [facility] Comment on above: Performed By: #### 4 6109 #### LAB [address] [place], [place] [address] Maurice Coello M.D. [id number] Magnesium Levelon 09-23-2024 Magnesium [Mass/Vol] 2 mg/dL 1.6 - 2 .4 mg/dL [facility] Magnesium [Mass/Vol]on 09-23 Interpretation and review of laboratory results Normal [facility] NT PRO BNPon 09-23-2024 Natriuretic peptide B (Bld) [Mass/Vol] 2680 pg/mL High 0-300 [facility] Comment on above: Order Comment: Injur y/Trauma or Illness?:Illness/Other How long have you had these symptoms (acute/chronic)?:Chronic Reason for exam?:A-fib [facility] TO READ Type of Exam?:Initial Additional signs and symptoms?:n Performed By: #### 4 7395 #### LAB [address] [place], [place] [address] Maurice Coello M.D. [id number] NT Pro BNPon 09-23-2024 Natriuretic peptide.B prohormone N-Terminal [Mass/Vol] 2680 pg/mL High 0 - 300 pg/mL [facility] Natriuretic peptide.B prohor curly N-Terminal [Mass/Vol]on 09-23-2024 Interpretation and review of laboratory results Abnormal [facility] Pride Study Cut-offs Rule In: < /= 50 Years >450 pg/mL 51 Years - 75 Years >900 pg/mL 76 Years - 99 Years >1800 pg/mL Rule Out: All patients <300 pg/mL [facility] No Panel InformationOrdered By: Rachel Hobson on 09-23-2024 [facility] BASIC METABOLIC PANELon 09-06 Anion gap [Moles/Vol] 16 mmol/L Normal 10-20 [facility] Comment on above: Order Comment: Injur y/Trauma or Illness?:Illness/Other How long have you had these symptoms (acute/chronic)?:Acute Reason for exam?:sob. Hx of COPD History of cancer?:unknown Surgeries, chemotherapy, or radiation?:cholecystectomy, hysterectomy, oophrectomy, left knee replacement Type of Exam?:Initial Additional signs and symptoms?:. Performed By: #### 4 6124 #### LAB [address] [place], [place] [address] Maurice Coello M.D. [id number] Calcium [Mass/Vol] 8.3 mg/dL Low 8.4-10.2 [facility] Comment on above: Order Comment: Injur y/Trauma or Illness?:Illness/Other How long have you had these symptoms (acute/chronic)?:Acute Reason for exam?:sob. Hx of COPD History of cancer?:unknown Surgeries, chemotherapy, or radiation?:cholecystectomy, hysterectomy, oophrectomy, left knee replacement Type of Exam?:Initial Additional signs and symptoms?:. Performed By: #### 4 6118 #### LAB [address] [address] Maurice Coello M.D. [id number] Chloride [Moles/Vol] 93 mmol/L Low 98-108 [facility] Comment on above: Order Comment: Injur y/Trauma or Illness?:Illness/Other How long have you had these symptoms (acute/chronic)?:Acute Reason for exam?:sob. Hx of COPD History of cancer?:unknown Surgeries, chemotherapy, or radiation?:cholecystectomy, hysterectomy, oophrectomy, left knee replacement Type of Exam?:Initial Additional signs and symptoms?:. Performed By: #### 4 6124 #### LAB [address] [address] Maurice Coello M.D. [id number] Creatinine [Mass/Vol] 1.75 mg/dL High 0.60-1.10 [facility] Comment on above: Order Comment: Injur y/Trauma or Illness?:Illness/Other How long have you had these symptoms (acute/chronic)?:Acute Reason for exam?:sob. Hx of COPD History of cancer?:unknown Surgeries, chemotherapy, or radiation?:cholecystectomy, hysterectomy, oophrectomy, left knee replacement Type of Exam?:Initial Additional signs and symptoms?:. Performed By: #### 4 6182 #### LAB [address] [address] Maurice Coello M.D. [id number] EGFR 32 mL/min/1.73 m2 Low >=60 [facility] Comment on above: Order Comment: Injur y/Trauma or Illness?:Illness/Other How long have you had these symptoms (acute/chronic)?:Acute Reason for exam?:sob. Hx of COPD History of cancer?:unknown Surgeries, chemotherapy, or radiation?:cholecystectomy, hysterectomy, oophrectomy, left knee replacement Type of Exam?:Initial Additional signs and symptoms?:. Result Comment: Ericka mated GFR was calculated using the 2020 CKD-EPI creatinine equation. Performed By: #### 4 6132 #### LAB [address] [address] Maurice Coello M.D. [id number] Glucose [Mass/Vol] 272 mg/dL High 65-99 [facility] Comment on above: Order Comment: Injur y/Trauma or Illness?:Illness/Other How long have you had these symptoms (acute/chronic)?:Acute Reason for exam?:sob. Hx of COPD History of cancer?:unknown Surgeries, chemotherapy, or radiation?:cholecystectomy, hysterectomy, oophrectomy, left knee replacement Type of Exam?:Initial Additional signs and symptoms?:. Performed By: #### 4 6124 #### LAB [address] [address] Maurice Coello M.D. [id number] HCO3 (Bld) [Moles/Vol] 29 mmol/L Normal 21-32 [facility] Comment on above: Order Comment: Injur y/Trauma or Illness?:Illness/Other How long have you had these symptoms (acute/chronic)?:Acute Reason for exam?:sob. Hx of COPD History of cancer?:unknown Surgeries, chemotherapy, or radiation?:cholecystectomy, hysterectomy, oophrectomy, left knee replacement Type of Exam?:Initial Additional signs and symptoms?:. Performed By: #### 4 6146 #### LAB [address] [address] Maurice Coello M.D. [id number] Potassium [Moles/Vol] 5.0 mmol/L Normal 3.5-5.1 [facility] Comment on above: Order Comment: Injur y/Trauma or Illness?:Illness/Other How long have you had these symptoms (acute/chronic)?:Acute Reason for exam?:sob. Hx of COPD History of cancer?:unknown Surgeries, chemotherapy, or radiation?:cholecystectomy, hysterectomy, oophrectomy, left knee replacement Type of Exam?:Initial Additional signs and symptoms?:. Performed By: #### 4 6176 #### LAB [address] [address] Maurice Coello M.D. [id number] Sodium [Moles/Vol] 133 mmol/L Low 135-145 [facility] Comment on above: Order Comment: Injur y/Trauma or Illness?:Illness/Other How long have you had these symptoms (acute/chronic)?:Acute Reason for exam?:sob. Hx of COPD History of cancer?:unknown Surgeries, chemotherapy, or radiation?:cholecystectomy, hysterectomy, oophrectomy, left knee replacement Type of Exam?:Initial Additional signs and symptoms?:. Performed By: #### 4 6199 #### LAB [address] [address] Maurice Coello M.D. [id number] Urea nitrogen [Mass/Vol] 31 mg/dL High 06-30 [facility] Comment on above: Order Comment: Injur y/Trauma or Illness?:Illness/Other How long have you had these symptoms (acute/chronic)?:Acute Reason for exam?:sob. Hx of COPD History of cancer?:unknown Surgeries, chemotherapy, or radiation?:cholecystectomy, hysterectomy, oophrectomy, left knee replacement Type of Exam?:Initial Additional signs and symptoms?:. Performed By: #### 4 6158 #### LAB [address] [address] Maurice Coello M.D. [id number] Urea nitrogen/Creatinine [Mass ratio] 17.7 mg/mg Normal 10.0-20.0 [facility] Comment on above: Order Comment: Injur y/Trauma or Illness?:Illness/Other How long have you had these symptoms (acute/chronic)?:Acute Reason for exam?:sob. Hx of COPD History of cancer?:unknown Surgeries, chemotherapy, or radiation?:cholecystectomy, hysterectomy, oophrectomy, left knee replacement Type of Exam?:Initial Additional signs and symptoms?:. Performed By: #### 4 6124 #### LAB [address] [address] Maurice Coello M.D. [id number] Bacteria identified Aer cx N om (Sput)Ordered By: Nahum Coello on 09-22-2024 Microscopic observation Gram stain Nom (Sput) Specimen screened and found unsatisfactory for culture. [facility] Basic metabolic 2000 panelon 09-22-2024 Anion gap [Moles/Vol] 16 mmol/L 10 - 2 0 mmol/L [facility] Calcium [Mass/Vol] 8.3 mg/dL Low 8.4 - 10. 2 mg/dL [facility] Chloride [Moles/Vol] 93 mmol/L Low 98 - 10 8 mmol/L [facility] Creatinine [Mass/Vol] 1.75 mg/dL High 0.60 - 1.10 mg/dL [facility] GFR/1.73 sq M.predicted CKD-EPI (S/P/Bld) [Vol rate/Area] 32 Low - PINF [facility] Comment on above: Estimated GFR was ca lculated using the 2020 CKD-EPI creatinine equation. Glucose [Mass/Vol] 272 mg/dL High 65 - 99 mg/dL [facility] HCO3 [Moles/Vol] 29 mmol/L 21 - 32 mmol/L [facility] Potassium [Moles/Vol] 5 mmol/L 3.5 - 5.1 mmol/L [facility] Sodium [Moles/Vol] 133 mmol/L Low 135 - 145 mmol/L [facility] Urea nitrogen [Mass/Vol] 31 mg/dL High 8 - 25 mg/dL [facility] Urea nitrogen/Creatinine [Mass ratio] 17.7 mg/mg 10.0 - 20.0 [facility] has implemented the eGFR calculation approach that does not have a coefficient for race that conforms to the NKF-ASN Task Force Recommendations. [facility] CBCon 09-22-2024 AUTO NRBC 0.0 % Normal [facility] Comment on above: Performed By: #### 4 6981 #### MH LAB [address] [address] Maurice Coello M.D. [id number] AUTO NRBC ABS COUNT 0.00 K/mcL Normal 0.00-0.00 [facility] Comment on above: Performed By: #### 4 6958 #### MH LAB [address] [id number] Maurice Coello M.D. [id number] Erythrocyte distribution width (RBC) [Ratio] 14.3 % Normal 11.6-14.8 [facility] Comment on above: Performed By: #### 4 6918 #### LAB [address] [id number] Maurice Coello M.D. [id number] Hematocrit (Bld) [Volume fraction] 35.1 % Low 36.0-46.0 [facility] Comment on above: Performed By: #### 4 6932 #### LAB [address] [address] Maurice Coello M.D. [id number] Hemoglobin (Bld) [Mass/Vol] 10.3 g/dL Low 12.0-16.0 [facility] Comment on above: Performed By: #### 4 6932 #### LAB [address] [address] Maurice Coello M.D. [id number] MCH (RBC) [Entitic mass] 26.3 pg Normal 26.0-34.0 [facility] Comment on above: Performed By: #### 4 6932 #### LAB [address] [address] Maurice Coello M.D. [id number] MCV (RBC) [Entitic vol] 89.5 fL Normal 80.0-100.0 [facility] Comment on above: Performed By: #### 4 6583 #### LAB [address] [address] Maurice Coello M.D. [id number] MEAN CORPUSCULAR HEMOGLOBIN CONC 29.3 g/dL Low 31.0-37.0 [facility] Comment on above: Performed By: #### 4 6932 #### LAB [address] [address] Maurice Coello M.D. [id number] Platelet mean volume (Bld) [Entitic vol] 10.3 fL Normal 9.4-12.4 [facility] Comment on above: Performed By: #### 4 3804 #### LAB [address] [address] Maurice Coello M.D. [id number] Platelets (Bld) [#/Vol] 194 10*3/uL Normal 150-400 [facility] Comment on above: Performed By: #### 4 3067 #### LAB [address] [address] Maurice Coello M.D. [id number] RBC (Bld) [#/Vol] 3.92 10*6/uL Low 4.00-5.20 [facility] Comment on above: Performed By: #### 4 6932 #### LAB [address] [place], [place] [address] Maurice Coello M.D. [id number] WBC (Bld) [#/Vol] 7.07 10*3/uL Normal 4.50-11.00 [facility] Comment on above: Performed By: #### 4 6932 #### LAB [address] [place], [place] [address] Maurice Coello M.D. [id number] CBC panel Auto (Bld)on 09-22 Erythrocyte distribution width (RBC) [Entitic vol] 14.3 % 11.6 - 14.8 % [facility] Hematocrit (Bld) [Volume fraction] 35.1 % Low 36.0 - 46.0 % [facility] Hemoglobin (Bld) [Mass/Vol] 10.3 g/dL Low 12.0 - 16.0 g/dL [facility] Interpretation and review of laboratory results Abnormal [facility] MCH (RBC) [Entitic mass] 26.3 pg 26.0 - 34.0 pg [facility] MCHC (RBC) [Mass/Vol] 29.3 g/dL Low 31.0 - 37.0 g/dL [facility] MCV (RBC) [Entitic vol] 89.5 fL 80.0 - 100.0 fL [facility] Nucleated RBC (Bld) [#/Vol] 0 10*3/uL [facility] Nucleated RBC/100 WBC (Bld) [Ratio] 0 % [facility] Platelet mean volume (Bld) [Entitic vol] 10.3 fL 9.4 - 12.4 fL [facility] Platelets (Bld) [#/Vol] 194 10*3/uL [facility] RBC (Bld) [#/Vol] 3.92 10*6/uL Low [facility] WBC (Bld) [#/Vol] 7.07 10*3/uL [facility] EKGon 09-22-2024 [facility] LEGIONELLA ANTIGEN, URINEon 09-22-2024 LEGIONELLA ANTIGEN, URINE LEGIONELLA ANTIGEN Negative for Legionella antigen COMMENT: Results may be affected if patient is on diuretics. INTERPRETATION OF RESULTS: Test detects Legionella pneumophilia serogroup 1 antigens in urine. Legionnaires disease cannot be ruled out since other serogroups and species may also cause disease. Normal [facility] Comment on above: Performed By: #### 4 4090 #### LAB [address] [place], [place] [address] Maurice Coello M.D. [id number] Legionella Antigen, UrineOrd ered By: Malgorzata Carlton on 09-22-2024 Interpretation and review of laboratory results Normal [facility] L. pneumophila Ag Ql (U) Negative Negative for Legionella antigen [facility] Comment on above: COMMENT: Results may be affected if patient is on diuretics. INTERPRETATION OF RESULTS: Test detects Legionella pneumophilia serogroup 1 antigens in urine. Legionnaires disease cannot be ruled out since other serogroups and species may also cause disease. [facility] M. pneumoniae IgM Ql (S)Orde red By: Vane Garzon on 09-22-2024 Interpretation and review of laboratory results Normal [facility] M. pneumoniae IgM IA Qn (S) Non-Reactive for Mycoplasma pneumoniae IgM Non-Reactive for Mycoplasma pneumoniae IgM [facility] Interpretation Non-Reactive: Absence of IgM to Mycoplasma pneumoniae or levels below the limit of the assay. [facility] MAGNESIUM LEVELon 09-22-2024 Magnesium [Mass/Vol] 1.9 mg/dL Normal 1.6-2.4 [facility] Comment on above: Performed By: #### 4 [id number] #### LAB [address] [place], [place] [address] Maurice Coello M.D. [id number] MRSA DNA Amplified Probeon 1 11-22-2023 MRSA DNA CATRINA+probe Ql (Unsp spec) Negative Not Detected, MRSA NEGATIVE [facility] MRSA DNA CATRINA+probe Ql (Unsp spec)on 09-22-2024 Interpretation and review of laboratory results Normal [facility] Magnesiumon 09-22-2024 Magnesium [Mass/Vol] 1.9 mg/dL 1.6 - 2 .4 mg/dL [facility] Magnesium [Mass/Vol]on 09-22 Interpretation and review of laboratory results Normal [facility] No Panel Informationon 09-22 Interpretation and review of laboratory results Abnormal [facility] PHOSPHORUSon 09-22-2024 Phosphate [Mass/Vol] 4.3 mg/dL High 2.8-4.1 [facility] Comment on above: Performed By: #### 4 6299 #### LAB [address] [place], [place] [address] Maurice Coello M.D. [id number] Phosphoruson 09-22-2024 Phosphate [Mass/Vol] 4.3 mg/dL High 2.8 - 4 .1 mg/dL [facility] S. pneumoniae Urine Antigeno n 09-22-2024 Interpretation and review of laboratory results Normal [facility] S. pneumoniae Ag Ql (U) Negative Pres umptive Negative for Pneumococcal pneumoniae [facility] Comment on above: A negative result cristina ggests no current or recent pneumococcal infection. A negative result does not rule out Streptococcus pneumoniae infection since the antigen present in the sample may be below the detection limit of the test. [facility] S.PNEUMONIAE URINE ANTIGENon 09-22-2024 S.PNEUMONIAE URINE ANTIGEN STREP PNEUMONIAE ANTIGEN, URINE Presumptive Negative for Pneumococcal pneumoniae A negative result suggests no current or recent pneumococcal infection. A negative result does not rule out Streptococcus pneumoniae infection since the antigen present in the sample may be below the detection limit of the test. [facility] Comment on above: Performed By: #### 4 7222 #### LAB [address] [place], [place] [address] aMurice Coello M.D. [id number] SPUTUM AEROBIC CULTUREon SPUTUM AEROBIC CULTURE RESPIRATORY CULTU RE See Gram Stain Result GRAM STAIN RESULT Specimen screened and found unsatisfactory for culture. [facility] Comment on above: Performed By: #### 4 4046 ####[facility] [address] Arnel Marie M.D. [id number] Sputum Aerobic CultureOrdere d By: Nahum Coello on 09-22-2024 Bacteria identified Aer cx Nom (Sput) See Gram Stain Result [facility] TROPONINon 09-22-2024 TROPONIN T DELTA CHANGE INTERPRETATION Probable non-acute cardiac injury or late presentation of acute injury. [facility] Comment on above: Performed By: #### 4 7395 #### LAB [address] [address] Maurice Coello M.D. [id number] TROPONIN T DELTA DIFFERENCE -5 ng/L Normal < = -/+ 7 change [facility] Comment on above: Performed By: #### 4 7395 #### LAB [address] [place], [place] [address] Maurice Coello M.D. [id number] TROPONIN T NG/L 15 ng/L Off scale high <=14 [facility] Comment on above: Performed By: #### 4 7395 #### LAB [address] [place], [place] [address] Maurice Coello M.D. [id number] TROPONIN T DELTA CHANGE INTERPRETATION Probable non-acute cardiac injury or late presentation of acute injury. Normal [facility] Comment on above: Performed By: #### 4 7395 #### LAB [address] [place], [place] [address] Maurice Coello M.D. [id number] TROPONIN T DELTA DIFFERENCE -5 ng/L Normal < = -/+ 7 change [facility] Comment on above: Performed By: #### 4 7395 #### LAB [address] [place], [place] [address] Maurice Coello M.D. [id number] TROPONIN T NG/L 15 ng/L Off scale high <=14 [facility] Comment on above: Performed By: #### 4 7395 #### LAB [address] [place], [place] [address] Maurice Coello M.D. [id number] Troponin x 2 (Now and Repeat in 3 hours)on 09-22-2024 Delta Difference Troponin T -5 ng/L < = -/+ 7 change [facility] Inter Troponin T Delta Change Probable non-acute cardiac injury or late presentation of acute injury. [facility] Interpretation and review of laboratory results Abnormal [facility] Troponin T 15 ng/L Critically high NINF - 14 ng/L [facility] Delta Difference Troponin T -5 ng/L < = -/+ 7 change [facility] Inter Troponin T Delta Change Probable non-acute cardiac injury or late presentation of acute injury. [facility] Interpretation and review of laboratory results Abnormal [facility] Troponin T 15 ng/L Critically high NINF - 14 ng/L [facility] BLOOD CULTURE AEROBIC/ANAERO BICon 09-21-2024 BLOOD CULTURE AEROBIC/ANAEROBIC BLOOD CULTURE No Growth after 5 days Normal [facility] Comment on above: Performed By: #### 4 [id number] #### LAB [address] [place], [place] [address] Maurice Coello M.D. [id number] CBC Auto Differentialon 09-06 Basophils (Bld) [#/Vol] 0.07 10*3/uL [facility] Basophils/100 WBC (Bld) 0.7 % [facility] Eosinophils (Bld) [#/Vol] 0.14 10*3/uL [facility] Eosinophils/100 WBC (Bld) 1.5 % [facility] Erythrocyte distribution width (RBC) [Entitic vol] 14.4 % 11.6 - 14.8 % [facility] Hematocrit (Bld) [Volume fraction] 36.7 % 36.0 - 46.0 % [facility] Hemoglobin (Bld) [Mass/Vol] 10.8 g/dL Low 12.0 - 16.0 g/dL [facility] Immature granulocytes (Bld) [#/Vol] 0.03 10*3/uL [facility] Immature granulocytes/100 WBC (Bld) 0.3 % [facility] Comment on above: The IG parameter is the percentage of metamyelocytes, myelocytes and promyelocytes. An immature granulocyte count (IG) of 1% or more suggests the possibility of infection, an IG count of 3% is very likely related to an infection. Interpretation and review of laboratory results Abnormal [facility] Lymphocytes (Bld) [#/Vol] 1.21 10*3/uL [facility] Lymphocytes/100 WBC (Bld) 12.8 % [facility] MCH (RBC) [Entitic mass] 26.3 pg 26.0 - 34.0 pg [facility] MCHC (RBC) [Mass/Vol] 29.4 g/dL Low 31.0 - 37.0 g/dL [facility] MCV (RBC) [Entitic vol] 89.5 fL 80.0 - 100.0 fL [facility] Monocytes (Bld) [#/Vol] 0.62 10*3/uL [facility] Monocytes/100 WBC (Bld) 6.6 % [facility] Neutrophils (Bld) [#/Vol] 7.37 10*3/uL High [facility] Neutrophils/100 WBC (Bld) 78.1 % [facility] Nucleated RBC (Bld) [#/Vol] 0 10*3/uL [facility] Nucleated RBC/100 WBC (Bld) [Ratio] 0 % [facility] Platelet mean volume (Bld) [Entitic vol] 10 fL 9.4 - 12.4 fL [facility] Platelets (Bld) [#/Vol] 249 10*3/uL [facility] RBC (Bld) [#/Vol] 4.1 10*6/uL [facility] alth WBC (Bld) [#/Vol] 9.44 10*3/uL [facility] CBC WITH AUTO DIFFERENTIALon 09-21-2024 AUTO NRBC 0.0 % Normal [facility] Comment on above: Performed By: #### L [id number] #### LAB [address] [place] [address] Maurice Coello M.D. [id number] AUTO NRBC ABS COUNT 0.00 K/mcL Normal 0.00-0.00 [facility] Comment on above: Performed By: #### L [id number] #### LAB [address] [place] [address] Maurice Coello M.D. [id number] BASOPHILS ABSOLUTE COUNT 0.07 K/mcL Normal 0.00-0.30 [facility] Comment on above: Performed By: #### L [id number] #### LAB [address] [place] [address] Maurice Coello M.D. [id number] Basophils/100 WBC (Bld) 0.7 % Normal [facility] Comment on above: Performed By: #### L [id number] #### LAB [address] [place] [address] Maurice Coello M.D. [id number] Eosinophils (Bld) [#/Vol] 0.14 10*3/uL Normal 0.00-0.50 [facility] Comment on above: Performed By: #### L [id number] #### LAB [address] [place] [address] Maurice Coello M.D. [id number] Eosinophils/100 WBC (Bld) 1.5 % Normal [facility] Comment on above: Performed By: #### L [id number] #### LAB [address] [address] Maurice Coello M.D. [id number] Erythrocyte distribution width (RBC) [Ratio] 14.4 % Normal 11.6-14.8 [facility] Comment on above: Performed By: #### L [id number] #### LAB [address] [address] Maurice Coello M.D. [id number] Hematocrit (Bld) [Volume fraction] 36.7 % Normal 36.0-46.0 [facility] Comment on above: Performed By: #### L [id number] #### LAB [address] [address] Maurice Coello M.D. [id number] Hemoglobin (Bld) [Mass/Vol] 10.8 g/dL Low 12.0-16.0 [facility] Comment on above: Performed By: #### L [id number] #### LAB [address] [address] Maurice Coello M.D. [id number] IG ABSOLUTE 0.03 K/mcL Normal 0.00-0.30 [facility] Comment on above: Performed By: #### L [id number] #### LAB [address] [address] Maurice Coello M.D. [id number] IG PERCENT 0.30 % Normal [facility] Comment on above: Result Comment: The IG parameter is the percentage of metamyelocytes, myelocytes and promyelocytes. An immature granulocyte count (IG) of 1% or more suggests the possibility of infection, an IG count of 3% is very likely related to an infection. Performed By: #### L [id number] #### LAB [address] [place] [address] Maurice Coello M.D. [id number] Lymphocytes (Bld) [#/Vol] 1.21 10*3/uL Normal 0.90-4.00 [facility] Comment on above: Performed By: #### L [id number] #### LAB [address] [address] Maurice Coello M.D. [id number] Lymphocytes/100 WBC (Bld) 12.8 % Normal [facility] Comment on above: Performed By: #### L [id number] #### LAB [address] [address] Maurice Coello M.D. [id number] MCH (RBC) [Entitic mass] 26.3 pg Normal 26.0-34.0 [facility] Comment on above: Performed By: #### L [id number] #### LAB [address] [address] Maurice Coello M.D. [id number] MCV (RBC) [Entitic vol] 89.5 fL Normal 80.0-100.0 [facility] Comment on above: Performed By: #### L [id number] #### LAB [address] [place] [address] Maurice Coello M.D. [id number] MEAN CORPUSCULAR HEMOGLOBIN CONC 29.4 g/dL Low 31.0-37.0 [facility] Comment on above: Performed By: #### L [id number] #### LAB [address] [place] [address] Maurice Coello M.D. [id number] Monocytes (Bld) [#/Vol] 0.62 10*3/uL Normal 0.30-0.90 [facility] Comment on above: Performed By: #### L [id number] #### LAB [address] [place] [address] Maurice Coello M.D. [id number] Monocytes/100 WBC (Bld) 6.6 % Normal [facility] Comment on above: Performed By: #### L [id number] #### LAB [address] [place] [address] Maurice Coello M.D. [id number] NEUTROPHILS ABSOLUTE COUNT 7.37 K/mcL High 1.70-7.00 [facility] Comment on above: Performed By: #### L [id number] ####[facility] LAB [address] [address] Maurice Coello M.D. [id number] Neutrophils/100 WBC (Bld) 78.1 % Normal [facility] Comment on above: Performed By: #### L [id number] ####[facility] LAB [address] [address] Maurice Coello M.D. [id number] Platelet mean volume (Bld) [Entitic vol] 10.0 fL Normal 9.4-12.4 [facility] Comment on above: Performed By: #### L [id number] ####[facility] LAB [address] [address] Maurice Coello M.D. [id number] Platelets (Bld) [#/Vol] 249 10*3/uL Normal 150-400 [facility] Comment on above: Performed By: #### L [id number] ####[facility] LAB [address] [address] Maurice Coello M.D. [id number] RBC (Bld) [#/Vol] 4.10 10*6/uL Normal 4.00-5.20 [facility] Comment on above: Performed By: #### L [id number] ####[facility] LAB [address] [address] Maurice Coello M.D. [id number] WBC (Bld) [#/Vol] 9.44 10*3/uL Normal 4.50-11.00 [facility] Comment on above: Performed By: #### L [id number] ####[facility] LAB [address] [address] Maurice Coello M.D. [id number] CK [Catalytic activity/Vol]o n 09-21-2024 Interpretation and review of laboratory results Abnormal [facility] METABOLIC PANE Jett 09-21-2024 Albumin [Mass/Vol] 4.1 g/dL Normal 3.2-5.2 [facility] Comment on above: Order Comment: Injur y/Trauma or Illness?:Illness/Other How long have you had these symptoms (acute/chronic)?:Acute Reason for exam?:sob. Hx of COPD History of cancer?:unknown Surgeries, chemotherapy, or radiation?:cholecystectomy, hysterectomy, oophrectomy, left knee replacement Type of Exam?:Initial Additional signs and symptoms?:. Performed By: #### 4 6126 #### LAB [address] [address] Maurice Coello M.D. [id number] ALP [Catalytic activity/Vol] 97 U/L Normal 40-150 [facility] Comment on above: Order Comment: Injur y/Trauma or Illness?:Illness/Other How long have you had these symptoms (acute/chronic)?:Acute Reason for exam?:sob. Hx of COPD History of cancer?:unknown Surgeries, chemotherapy, or radiation?:cholecystectomy, hysterectomy, oophrectomy, left knee replacement Type of Exam?:Initial Additional signs and symptoms?:. Performed By: #### 4 6126 #### LAB [address] [address] Maurice Coello M.D. [id number] ALT [Catalytic activity/Vol] 23 U/L Normal 0-35 U/L [facility] Comment on above: Order Comment: Injur y/Trauma or Illness?:Illness/Other How long have you had these symptoms (acute/chronic)?:Acute Reason for exam?:sob. Hx of COPD History of cancer?:unknown Surgeries, chemotherapy, or radiation?:cholecystectomy, hysterectomy, oophrectomy, left knee replacement Type of Exam?:Initial Additional signs and symptoms?:. Performed By: #### 4 6124 #### LAB [address] [address] Maurice Coello M.D. [id number] Anion gap [Moles/Vol] 15 mmol/L Normal 10-20 [facility] Comment on above: Order Comment: Injur y/Trauma or Illness?:Illness/Other How long have you had these symptoms (acute/chronic)?:Acute Reason for exam?:sob. Hx of COPD History of cancer?:unknown Surgeries, chemotherapy, or radiation?:cholecystectomy, hysterectomy, oophrectomy, left knee replacement Type of Exam?:Initial Additional signs and symptoms?:. Performed By: #### 4 6144 #### LAB [address] [address] Maurice Coello M.D. [id number] AST [Catalytic activity/Vol] 47 U/L High 0-35 U/L [facility] Comment on above: Order Comment: Injur y/Trauma or Illness?:Illness/Other How long have you had these symptoms (acute/chronic)?:Acute Reason for exam?:sob. Hx of COPD History of cancer?:unknown Surgeries, chemotherapy, or radiation?:cholecystectomy, hysterectomy, oophrectomy, left knee replacement Type of Exam?:Initial Additional signs and symptoms?:. Result Comment: Slig htly Hemolyzed Performed By: #### 4 6155 #### LAB [address] [address] Maurice Coello M.D. [id number] Bilirubin [Mass/Vol] 0.2 mg/dL Normal 0.0-1.3 [facility] Comment on above: Order Comment: Injur y/Trauma or Illness?:Illness/Other How long have you had these symptoms (acute/chronic)?:Acute Reason for exam?:sob. Hx of COPD History of cancer?:unknown Surgeries, chemotherapy, or radiation?:cholecystectomy, hysterectomy, oophrectomy, left knee replacement Type of Exam?:Initial Additional signs and symptoms?:. Performed By: #### 4 6126 #### LAB [address] [address] Maurice Coello M.D. [id number] Calcium [Mass/Vol] 8.8 mg/dL Normal 8.4-10.2 [facility] Comment on above: Order Comment: Injur y/Trauma or Illness?:Illness/Other How long have you had these symptoms (acute/chronic)?:Acute Reason for exam?:sob. Hx of COPD History of cancer?:unknown Surgeries, chemotherapy, or radiation?:cholecystectomy, hysterectomy, oophrectomy, left knee replacement Type of Exam?:Initial Additional signs and symptoms?:. Performed By: #### 4 9594 #### LAB [address] [address] Maurice Coello M.D. [id number] Chloride [Moles/Vol] 94 mmol/L Low 98-108 [facility] Comment on above: Order Comment: Injur y/Trauma or Illness?:Illness/Other How long have you had these symptoms (acute/chronic)?:Acute Reason for exam?:sob. Hx of COPD History of cancer?:unknown Surgeries, chemotherapy, or radiation?:cholecystectomy, hysterectomy, oophrectomy, left knee replacement Type of Exam?:Initial Additional signs and symptoms?:. Performed By: #### 4 6126 #### LAB [address] [address] Maurice Coello M.D. [id number] Creatinine [Mass/Vol] 1.72 mg/dL High 0.60-1.10 [facility] Comment on above: Order Comment: Injur y/Trauma or Illness?:Illness/Other How long have you had these symptoms (acute/chronic)?:Acute Reason for exam?:sob. Hx of COPD History of cancer?:unknown Surgeries, chemotherapy, or radiation?:cholecystectomy, hysterectomy, oophrectomy, left knee replacement Type of Exam?:Initial Additional signs and symptoms?:. Performed By: #### 4 8693 #### LAB [address] [address] Maurice Coello M.D. [id number] EGFR 32 mL/min/1.73 m2 Low >=60 [facility] Comment on above: Order Comment: Injur y/Trauma or Illness?:Illness/Other How long have you had these symptoms (acute/chronic)?:Acute Reason for exam?:sob. Hx of COPD History of cancer?:unknown Surgeries, chemotherapy, or radiation?:cholecystectomy, hysterectomy, oophrectomy, left knee replacement Type of Exam?:Initial Additional signs and symptoms?:. Result Comment: Ericka mated GFR was calculated using the 2020 CKD-EPI creatinine equation. Performed By: #### 4 6138 #### LAB [address] [address] Maurice Coello M.D. [id number] Glucose [Mass/Vol] 102 mg/dL High 65-99 [facility] Comment on above: Order Comment: Injur y/Trauma or Illness?:Illness/Other How long have you had these symptoms (acute/chronic)?:Acute Reason for exam?:sob. Hx of COPD History of cancer?:unknown Surgeries, chemotherapy, or radiation?:cholecystectomy, hysterectomy, oophrectomy, left knee replacement Type of Exam?:Initial Additional signs and symptoms?:. Performed By: #### 4 6126 #### LAB [address] [address] Maurice Coello M.D. [id number] HCO3 (Bld) [Moles/Vol] 30 mmol/L Normal 21-32 [facility] Comment on above: Order Comment: Injur y/Trauma or Illness?:Illness/Other How long have you had these symptoms (acute/chronic)?:Acute Reason for exam?:sob. Hx of COPD History of cancer?:unknown Surgeries, chemotherapy, or radiation?:cholecystectomy, hysterectomy, oophrectomy, left knee replacement Type of Exam?:Initial Additional signs and symptoms?:. Performed By: #### 4 6126 #### LAB [address] [address] Maurice Coello M.D. [id number] Potassium [Moles/Vol] 5.8 mmol/L High 3.5-5.1 [facility] Comment on above: Order Comment: Injur y/Trauma or Illness?:Illness/Other How long have you had these symptoms (acute/chronic)?:Acute Reason for exam?:sob. Hx of COPD History of cancer?:unknown Surgeries, chemotherapy, or radiation?:cholecystectomy, hysterectomy, oophrectomy, left knee replacement Type of Exam?:Initial Additional signs and symptoms?:. Result Comment: Slig htly Hemolyzed Performed By: #### 4 6152 #### LAB [address] [address] Maurice Coello M.D. [id number] Protein [Mass/Vol] 7.3 g/dL Normal 6.0-8.0 [facility] Comment on above: Order Comment: Injur y/Trauma or Illness?:Illness/Other How long have you had these symptoms (acute/chronic)?:Acute Reason for exam?:sob. Hx of COPD History of cancer?:unknown Surgeries, chemotherapy, or radiation?:cholecystectomy, hysterectomy, oophrectomy, left knee replacement Type of Exam?:Initial Additional signs and symptoms?:. Performed By: #### 4 6126 #### LAB [address] [address] Maurice Coello M.D. [id number] Sodium [Moles/Vol] 133 mmol/L Low 135-145 [facility] Comment on above: Order Comment: Injur y/Trauma or Illness?:Illness/Other How long have you had these symptoms (acute/chronic)?:Acute Reason for exam?:sob. Hx of COPD History of cancer?:unknown Surgeries, chemotherapy, or radiation?:cholecystectomy, hysterectomy, oophrectomy, left knee replacement Type of Exam?:Initial Additional signs and symptoms?:. Performed By: #### 4 6126 #### LAB [address] [address] Maurice Coello M.D. [id number] Urea nitrogen [Mass/Vol] 32 mg/dL High 8-25 [facility] Comment on above: Order Comment: Injur y/Trauma or Illness?:Illness/Other How long have you had these symptoms (acute/chronic)?:Acute Reason for exam?:sob. Hx of COPD History of cancer?:unknown Surgeries, chemotherapy, or radiation?:cholecystectomy, hysterectomy, oophrectomy, left knee replacement Type of Exam?:Initial Additional signs and symptoms?:. Performed By: #### 4 6126 #### LAB [address] [address] Maurice Coello M.D. [id number] Urea nitrogen/Creatinine [Mass ratio] 18.6 mg/mg Normal 10.0-20.0 [facility] Comment on above: Order Comment: Injur y/Trauma or Illness?:Illness/Other How long have you had these symptoms (acute/chronic)?:Acute Reason for exam?:sob. Hx of COPD History of cancer?:unknown Surgeries, chemotherapy, or radiation?:cholecystectomy, hysterectomy, oophrectomy, left knee replacement Type of Exam?:Initial Additional signs and symptoms?:. Performed By: #### 4 6126 ####[facility] LAB [address], [place] [address] Maurice Coello M.D. [id number] CPKon 09-21-2024 CPK 713 U/L High 40-170 [facility] Comment on above: Performed By: #### 4 7395 #### LAB [address], [place] [address] Maurice Coello M.D. [id number] CPK NO MBon 09-21-2024 CK [Catalytic activity/Vol] 713 U/L High 40 - 170 U/L [facility] Comprehensive metabolic 2000 panelOrdered By: Michael Galvez on 09-21-2024 Albumin [Mass/Vol] 4.1 g/dL 3.2 - 5.2 g/dL [facility] ALP [Catalytic activity/Vol] 97 U/L 40 - 150 U/L [facility] ALT [Catalytic activity/Vol] 23 U/L 0-35 U/L [facility] Anion gap [Moles/Vol] 15 mmol/L 10 - 2 0 mmol/L [facility] AST [Catalytic activity/Vol] 47 U/L High 0-35 U/L [facility] Comment on above: Slightly Hemolyzed Bilirubin [Mass/Vol] 0.2 mg/dL 0.0 - 1 .3 mg/dL [facility] Calcium [Mass/Vol] 8.8 mg/dL 8.4 - 10. 2 mg/dL [facility] Chloride [Moles/Vol] 94 mmol/L Low 98 - 10 8 mmol/L [facility] Creatinine [Mass/Vol] 1.72 mg/dL High 0.60 - 1.10 mg/dL [facility] GFR/1.73 sq M.predicted CKD-EPI (S/P/Bld) [Vol rate/Area] 32 Low - PINF [facility] Comment on above: Estimated GFR was ca lculated using the 2020 CKD-EPI creatinine equation. Glucose [Mass/Vol] 102 mg/dL High 65 - 99 mg/dL [facility] HCO3 [Moles/Vol] 30 mmol/L 21 - 32 mmol/L [facility] Potassium [Moles/Vol] 5.8 mmol/L High 3.5 - 5.1 mmol/L [facility] Comment on above: Slightly Hemolyzed Protein [Mass/Vol] 7.3 g/dL 6.0 - 8.0 g/dL [facility] Sodium [Moles/Vol] 133 mmol/L Low 135 - 145 mmol/L [facility] Urea nitrogen [Mass/Vol] 32 mg/dL High 8 - 25 mg/dL [facility] Urea nitrogen/Creatinine [Mass ratio] 18.6 mg/mg 10.0 - 20.0 [facility] has implemented the eGFR calculation approach that does not have a coefficient for race that conforms to the NKF-ASN Task Force Recommendations. [facility] ED Prov Noteon 09-21-2024 ED Prov Note [facility] ED note NAME: Radha Shafer 64 y.o. CSN: [id number] PCP: No, Physician History: Chief Complaint: Shortness [...] PROCEDURE; Surgeon: Jada Vargas MD; Location: [facility]; Service: Colorectal CARDIAC CATHETERIZATION N/A 09/26/2022 Procedure: Coronary Angiogram; Surgeon: Tor Long MD; Location: [facility]; Service: Cardiovascular CARDIOVASCULAR STRESS TEST CHOLECYSTECTOMY COLONOSCOPY with biopsies COLONOSCOPY N/A 02/17/2022 Procedure: COLONOSCOPY; Surgeon: Jada Vargas MD; Location: [facility]; Service: Colorectal EGD N/A 08/15/2022 Procedure: ESOPHAGOGASTRODUODENOSC OPY WITH BIOPSY; Surgeon: Tyshawn Santos MD; Location: Endo; Service: Gastroenterology GALLBLADDER HC LEFT HEART CATH N/A 09/26/2022 Procedure: Left Heart Cath; Surgeon: Tor Long MD; Location: [facility] [facility] [facility] [facility]; Service: Cardiovascular HYSTERECTOMY JOINT REPLACEMENT Left knee ORTHOPEDIC SURGERY r wrist surgery, left ankle, right rotator cuff ROTATOR CUFF REPAIR Right SIGMOIDOSCOPY FLEXIBLE N/A 06/23/2022 Procedure: SIGMOIDOSCOPY FLEXIBLE WITH BIOPSY; Surgeon: Tyshawn Santos MD; Location: Endo; Service: Gastroenterology THYROIDECTOMY N/A 07/15/2015 Procedure: TOTAL THYROIDECTOMY; Surgeon: Lopez Alonso MD; Location: [facility]; Service: US ECHO TRANSTHORACIC FOLLOWUP [...] Socioeconomic History Marital status: Occupational History 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 Normal [facility] EKG 12-leadon 09-21-2024 Atrial Rate 75 BPM [facility] P Fowler 74 degrees [facility] P-R Interval 152 ms [facility] Q-T Interval 362 ms [facility] QRS Duration 90 ms [facility] QTC Calculation (Bezet) 404 ms [facility] R Fowler 34 degrees [facility] T Fowler 65 degrees [facility] Ventricular Rate 75 BPM [facility] th Normal sinus rhythm Normal ECG ECG Cart Interpretation see physician note for interpretation. Confirmed by Raseheda Bedolla ([id number]) on 09/21/2024 8:48:03 PM [facility] MRSA DNA AMPLIFIED PROBEon 1 11-21-2023 MRSA DNA AMPLIFIED PROBE Negative Normal Not Detected, MRSA NEGATIVE [facility] Comment on above: Performed By: #### 4 8061 #### LAB [address], [place] [address] Maurice Coello M.D. [id number] MYCOPLASMA PNEUMONIAE ANTIBO DY, IGMon 09-21-2024 MYCOPLASMA PNEUMONIAE IGM Non-Reactive for Mycoplasma pneumoniae IgM Normal Non-Reactive for Mycoplasma pneumoniae IgM [facility] Comment on above: Order Comment: Inter pretationNon-Reactive: Absence of IgM to Mycoplasma pneumoniae or levels below the limit of the assay. Performed By: #### 4 6183 ####[facility] [address], [place] [address] Arnel Marie M.D. [id number] No Panel Informationon 09-21 Extra Tube Hold for add-ons. [facility] Comment on above: Auto resulted. [facility] No Panel InformationOrdered By: Michael Galvez on 09-21-2024 Interpretation and review of laboratory results Abnormal [facility] POC VENOUS BLOOD GAS PANEL-P SHAW Lindquist 09-21-2024 BASE EXCESS, VENOUS 5.2 High -2.0-2.0 [facility] Comment on above: Performed By: #### 4 6982 #### MH LAB [address] [address] Maurice Coello M.D. [id number] FIO2 36 [facility] Comment on above: Performed By: #### 4 6975 #### MH LAB [address] [address] Maurice Coello M.D. [id number] HCO3 (Bld) [Moles/Vol] 33.6 mmol/L High 24.0-28.0 [facility] Comment on above: Performed By: #### 4 3383 #### MH LAB [address] [address] Maurice Coello M.D. [id number] Hematocrit (Bld) [Volume fraction] 38.6 % Normal 36.0-46.0 [facility] Comment on above: Performed By: #### 4 0887 #### MH LAB [address] [address] Maurice Coello M.D. [id number] Hemoglobin (Bld) [Mass/Vol] 12.6 g/dL Normal 12.0-16.0 [facility] Comment on above: Performed By: #### 4 3457 #### MH LAB [address] [address] Maurice Coello M.D. [id number] LITER FLOW 4 [facility] Comment on above: Performed By: #### 4 3514 #### MH LAB [address] [address] Maurice Coello M.D. [id number] Oxygen saturation in Blood 94.8 % High 40.0-70.0 [facility] Comment on above: Performed By: #### 4 4688 #### MH LAB [address] [id number] Maurice Coello M.D. [id number] PCO2 VENOUS 67.4 mm Hg High 41.0-51.0 [facility] Comment on above: Performed By: #### 4 6932 #### LAB [address] [address] Maurice Coello M.D. [id number] PH VENOUS 7.31 Low 7.32-7.42 [facility] Comment on above: Performed By: #### 4 6932 #### LAB [address] [address] Maurice Coello M.D. [id number] PO2 VENOUS 76 mm Hg High 25-40 [facility] Comment on above: Performed By: #### 4 6932 #### LAB [address] [address] Maurice Coello M.D. [id number] SPECIMEN SOURCE RADIANCE Radial, right Normal [facility] Comment on above: Performed By: #### 4 6932 #### LAB [address] [address] Maurice Coello M.D. [id number] POC Venous Blood Gas Panel-P [facility] 09-21-2024 Base excess Calc (BldV) [Moles/Vol] 5.2 mmol/L High -2.0 - 2.0 [facility] CO2 (BldV) [Partial pressure] 67.4 mm[Hg] High [facility] Hematocrit (BldA) [Volume fraction] 38.6 % 36.0 - 46.0 % [facility] Inhaled oxygen concentration 36 % [facility] Inhaled oxygen flow rate 4 L/min [facility] Interpretation and review of laboratory results Abnormal [facility] Oxygen (BldV) [Partial pressure] 76 mm[Hg] High [facility] Oxygen saturation in Venous blood 94.8 % High 40.0 - 70.0 % [facility] pH (BldV) 7.31 [pH] Low 7.32 - 7.42 [facility] Specimen source Nom (Unsp spec) Radial, right [facility] PROCALCITONINon 09-21-2024 PROCALCITONIN 0.14 ng/ml Normal <0.50 [facility] Comment on above: Order Comment: Resul ts <0.50 ng/ml represent a low risk of severe sepsis and/or septic shock. Performed By: #### 4 6932 #### LAB [address], [place] [address] Maurice Coello M.D. [id number] Procalcitoninon 09-21-2024 Procalcitonin [Mass/Vol] 0.14 ng/mL NINF - 0.50 ng/ml [facility] Procalcitonin [Mass/Vol]on 11-21-2023 Interpretation and review of laboratory results Normal [facility] Results <0.50 ng/ml represent a low risk of severe sepsis and/or septic shock. [facility] TROPONINon 09-21-2024 BASELINE TROPONIN T NG/L 20 ng/L Off scale high <=14 [facility] Comment on above: Performed By: #### 4 6608 #### LAB [address] [place], [place] [address] Maurice Coello M.D. [id number] TROPONIN T INTERPRETATION Possible acute cardiac injury. Normal [facility] Comment on above: Performed By: #### 4 6608 #### LAB [address] [place], [place] [address] Maurice Coello M.D. [id number] TroponinOrdered By: Carole hughes on 09-21-2024 Troponin T 20 ng/L Critically high NINF - 14 ng/L [facility] Troponin T Interpretation Possible acute cardiac injury. [facility] XR CHEST PA/APon 09-21-2024 XR CHEST [...] Sep 21, 2024 10:47:11 PM EST Normal [facility] Comment on above: Order Comment: Injur y/Trauma or Illness?:Illness/Other How long have you had these symptoms (acute/chronic)?:Acute Reason for exam?:sob. Hx of COPD History of cancer?:unknown Surgeries, chemotherapy, or radiation?:cholecystectomy, hysterectomy, oophrectomy, left knee replacement Type of Exam?:Initial Additional signs and symptoms?:. XR Chest PA and Abdomen APon 09-21-2024 No acute cardiopulmonary process. Stable chest x-ray. Workstation ID: [id number] [facility] EXAMINATION: XR CHEST PA/AP HISTORY: ORDERING [...] unremarkable. Multiple calcified granulomas are again seen. [facility] Paco Downs MD - 09/21/2024 EXAMINATION: [...] process. Stable chest x-ray. Workstation ID: [id number] [facility] Radiology Study observation (narrative) [facility] XR Chest PA and Abdomen APOr dered By: Paco Downs on 09-21-2024 [facility] Work Phone: Basic metabolic 2000 panelon 09-03-2024 Anion gap [Moles/Vol] 15 mmol/L 10 - 2 0 mmol/L [facility] Calcium [Mass/Vol] 9.1 mg/dL 8.4 - 10. 2 mg/dL [facility] Chloride [Moles/Vol] 98 mmol/L 98 - 10 8 mmol/L [facility] Creatinine [Mass/Vol] 1.61 mg/dL High 0.60 - 1.10 mg/dL [facility] GFR/1.73 sq M.predicted CKD-EPI (S/P/Bld) [Vol rate/Area] 35 Low - PINF [facility] Comment on above: Estimated GFR was ca lculated using the 2020 CKD-EPI creatinine equation. Glucose [Mass/Vol] 120 mg/dL High 65 - 99 mg/dL [facility] HCO3 [Moles/Vol] 25 mmol/L 21 - 32 mmol/L [facility] Interpretation and review of laboratory results Abnormal [facility] Potassium [Moles/Vol] 5.7 mmol/L High 3.5 - 5.1 mmol/L [facility] Sodium [Moles/Vol] 132 mmol/L Low 135 - 145 mmol/L [facility] Urea nitrogen [Mass/Vol] 35 mg/dL High 8 - 25 mg/dL [facility] Urea nitrogen/Creatinine [Mass ratio] 21.7 mg/mg High 10.0 - 20.0 [facility] has implemented the eGFR calculation approach that does not have a coefficient for race that conforms to the NKF-ASN Task Force Recommendations. [facility] CBC Auto Differentialon 08-07 Basophils (Bld) [#/Vol] 0.02 10*3/uL [facility] Basophils/100 WBC (Bld) 0.2 % [facility] Eosinophils (Bld) [#/Vol] 0 10*3/uL [facility] Eosinophils/100 WBC (Bld) 0 % [facility] Erythrocyte distribution width (RBC) [Entitic vol] 14.4 % 11.6 - 14.8 % [facility] Hematocrit (Bld) [Volume fraction] 35.3 % Low 36.0 - 46.0 % [facility] Hemoglobin (Bld) [Mass/Vol] 10.6 g/dL Low 12.0 - 16.0 g/dL [facility] Immature granulocytes (Bld) [#/Vol] 0.06 10*3/uL [facility] Immature granulocytes/100 WBC (Bld) 0.7 % [facility] Comment on above: The IG parameter is the percentage of metamyelocytes, myelocytes and promyelocytes. An immature granulocyte count (IG) of 1% or more suggests the possibility of infection, an IG count of 3% is very likely related to an infection. Interpretation and review of laboratory results Abnormal [facility] Lymphocytes (Bld) [#/Vol] 0.6 10*3/uL Low [facility] Lymphocytes/100 WBC (Bld) 7.4 % [facility] MCH (RBC) [Entitic mass] 25.9 pg Low 26.0 - 34.0 pg [facility] MCHC (RBC) [Mass/Vol] 30 g/dL Low 31.0 - 37.0 g/dL [facility] MCV (RBC) [Entitic vol] 86.1 fL 80.0 - 100.0 fL [facility] Monocytes (Bld) [#/Vol] 0.22 10*3/uL Low [facility] Monocytes/100 WBC (Bld) 2.7 % [facility] Neutrophils (Bld) [#/Vol] 7.26 10*3/uL High [facility] Neutrophils/100 WBC (Bld) 89 % [facility] Nucleated RBC (Bld) [#/Vol] 0 10*3/uL [facility] Nucleated RBC/100 WBC (Bld) [Ratio] 0 % [facility] Platelet mean volume (Bld) [Entitic vol] 10.5 fL 9.4 - 12.4 fL [facility] Platelets (Bld) [#/Vol] 229 10*3/uL [facility] RBC (Bld) [#/Vol] 4.1 10*6/uL [facility] alth WBC (Bld) [#/Vol] 8.16 10*3/uL [facility]-leadon 09-03-2024 Atrial Rate 75 BPM [facility] P Fowler 60 degrees [facility] P-R Interval 166 ms [facility] Q-T Interval 378 ms [facility] QRS Duration 104 ms [facility] QTC Calculation (Bezet) 422 ms [facility] R Fowler 28 degrees [facility] T Fowler 46 degrees [facility] Ventricular Rate 75 BPM [facility] Normal sinus rhythm Normal ECG ECG Cart Interpretation see physician note for interpretation. Confirmed by Rasheeda Bedolla ([id number]) on 09/03/2024 3:10:10 PM MUSE [facility] Basic metabolic 2000 panelon 09-02-2024 Anion gap [Moles/Vol] 17 mmol/L 10 - 2 0 mmol/L [facility] Calcium [Mass/Vol] 9.1 mg/dL 8.4 - 10. 2 mg/dL [facility] Chloride [Moles/Vol] 99 mmol/L 98 - 10 8 mmol/L [facility] Creatinine [Mass/Vol] 2.09 mg/dL High 0.60 - 1.10 mg/dL [facility] GFR/1.73 sq M.predicted CKD-EPI (S/P/Bld) [Vol rate/Area] 26 Low - PINF [facility] Comment on above: Estimated GFR was ca lculated using the 2020 CKD-EPI creatinine equation. Glucose [Mass/Vol] 112 mg/dL High 65 - 99 mg/dL [facility] HCO3 [Moles/Vol] 27 mmol/L 21 - 32 mmol/L [facility] Interpretation and review of laboratory results Abnormal [facility] Potassium [Moles/Vol] 5.2 mmol/L High 3.5 - 5.1 mmol/L [facility] Sodium [Moles/Vol] 138 mmol/L 135 - 145 mmol/L [facility] Urea nitrogen [Mass/Vol] 37 mg/dL High 8 - 25 mg/dL [facility] Urea nitrogen/Creatinine [Mass ratio] 17.7 mg/mg 10.0 - 20.0 [facility] has implemented the eGFR calculation approach that does not have a coefficient for race that conforms to the NKF-ASN Task Force Recommendations. [facility] CBC Auto Differentialon 08-07 Basophils (Bld) [#/Vol] 0.07 10*3/uL [facility] Basophils/100 WBC (Bld) 1 % [facility] Eosinophils (Bld) [#/Vol] 0.12 10*3/uL [facility] Eosinophils/100 WBC (Bld) 1.7 % [facility] Erythrocyte distribution width (RBC) [Entitic vol] 14.5 % 11.6 - 14.8 % [facility] Hematocrit (Bld) [Volume fraction] 40.6 % 36.0 - 46.0 % [facility] Hemoglobin (Bld) [Mass/Vol] 11.9 g/dL Low 12.0 - 16.0 g/dL [facility] Immature granulocytes (Bld) [#/Vol] 0.01 10*3/uL [facility] Immature granulocytes/100 WBC (Bld) 0.1 % [facility] Comment on above: The IG parameter is the percentage of metamyelocytes, myelocytes and promyelocytes. An immature granulocyte count (IG) of 1% or more suggests the possibility of infection, an IG count of 3% is very likely related to an infection. Interpretation and review of laboratory results Abnormal [facility] Lymphocytes (Bld) [#/Vol] 0.98 10*3/uL [facility] Lymphocytes/100 WBC (Bld) 14 % [facility] MCH (RBC) [Entitic mass] 25.8 pg Low 26.0 - 34.0 pg [facility] MCHC (RBC) [Mass/Vol] 29.3 g/dL Low 31.0 - 37.0 g/dL [facility] MCV (RBC) [Entitic vol] 88.1 fL 80.0 - 100.0 fL [facility] [facility] Monocytes (Bld) [#/Vol] 0.41 10*3/uL [facility] Monocytes/100 WBC (Bld) 5.8 % [facility] Neutrophils (Bld) [#/Vol] 5.43 10*3/uL [facility] Neutrophils/100 WBC (Bld) 77.4 % [facility] Nucleated RBC (Bld) [#/Vol] 0 10*3/uL [facility] Nucleated RBC/100 WBC (Bld) [Ratio] 0 % [facility] Platelet mean volume (Bld) [Entitic vol] 10.6 fL 9.4 - 12.4 fL [facility] Platelets (Bld) [#/Vol] 298 10*3/uL [facility] RBC (Bld) [#/Vol] 4.61 10*6/uL [facility] ealth WBC (Bld) [#/Vol] 7.02 10*3/uL [facility] [Catalytic activity/Vol]o n 09-02-2024 Interpretation and review of laboratory results Abnormal [facility] CPK NO MBon 09-02-2024 CK [Catalytic activity/Vol] 659 U/L High 40 - 170 U/L [facility] EKGon 09-02-2024 [facility] INR Coag (PPP) [Relative pablo e]on 09-02-2024 Interpretation and review of laboratory results Normal [facility] PT Coag (PPP) [Time] 12.5 s [facility] During the induction phase of oral anticoagulation, the INR may not reflect the anticoagulation status of the patient. Therapeutic ranges for INR's are: Most clinical situations: INR 2.0-3.0 Mechanical Prosthetic Valve: INR 2.5-3.5 Critical: INR >5.0 [facility] Influenza virus A and B RNA and SARS-CoV-2 (COVID-19) N gene panel CATRINA+probe (Resp)Ordered By: Mahogany Schultz on 09-02-2024 FLUAV RNA CATRINA+probe Ql (Unsp spec) Not detected Not Detected [facility] FLUBV RNA CATRINA+probe Ql (Unsp spec) Not detected Not Detected [facility] Interpretation and review of laboratory results Normal [facility] SARS-CoV-2 (COVID-19) RNA CATRINA+probe Ql (Resp) Not detected Not Detected [facility] POC Arterial Blood Gas Panel -Pulmon 09-02-2024 Alveolar-arterial oxygen Partial pressure difference 85.7 mm Hg [facility] Base excess Calc (Bld) [Moles/Vol] 0 mmol/L -2.0 - 2.0 [facility] CO2 (Bld) [Partial pressure] 53.5 mm[Hg] High [facility] HCO3 (Bld) [Moles/Vol] 26.9 mmol/L High 22.0 - 26.0 mmol/L [facility] Hematocrit (BldA) [Volume fraction] 36 % 36.0 - 46.0 % [facility] Hemoglobin (Bld) [Mass/Vol] 11.8 g/dL Low 12.0 - 16.0 g/dL [facility] Inhaled oxygen concentration 35 % [facility] Interpretation and review of laboratory results Abnormal [facility] Oxygen (Bld) [Partial pressure] 94 mm[Hg] High [facility] pH (Bld) 7.31 [pH] Low 7.35 - 7.45 [facility] Specimen source Nom (Unsp spec) Brachial, left [facility] POC Venous Blood Gas Panel-P ulmon 09-02-2024 Base excess Calc (BldV) [Moles/Vol] -0.2000 mmol/L -2.0 - 2.0 [facility] CO2 (BldV) [Partial pressure] 67.6 mm[Hg] High [facility] HCO3 (Bld) [Moles/Vol] 28.8 mmol/L High 24.0 - 28.0 mmol/L [facility] Hematocrit (BldA) [Volume fraction] 38 % 36.0 - 46.0 % [facility] Hemoglobin (Bld) [Mass/Vol] 12.4 g/dL 12.0 - 16.0 g/dL [facility] Inhaled oxygen concentration 36 % [facility] Inhaled oxygen flow rate 4 L/min [facility] Interpretation and review of laboratory results Abnormal [facility] Oxygen (BldV) [Partial pressure] 46 mm[Hg] High [facility] Oxygen saturation in Venous blood 78 % High 40.0 - 70.0 % [facility] pH (BldV) 7.24 [pH] Low 7.32 - 7.42 [facility] Specimen source Nom (Unsp spec) Not specified [facility] PT/INRon 09-02-2024 INR Coag (PPP) [Relative time] 0.9 {INR} 0.8 - 1.1 [facility] Troponin x 2 (Now and Repeat in 3 hours)Ordered By: Bhumi Teixeira on 09-02-2024 Delta Difference Troponin T -4 ng/L < = -/+ 7 change [facility] Interp Troponin T Delta Change Probable non-acute cardiac injury or late presentation of acute injury. [facility] Troponin T 14 ng/L NINF - 14 ng/L [facility] Troponin x 2 (Now and Repeat in 3 hours)Ordered By: Sunita Rodriguez on 09-02-2024 Interpretation and review of laboratory results Abnormal [facility] Troponin T 18 ng/L Critically high NINF - 14 ng/L [facility] Troponin T Interpretation Possible acute cardiac injury. 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 Referring Physician: OLIVIA Contreras; Indications R60.0 - Localized edema Procedure Description 69460 Duplex examination using B-mode, color and spectral [...] Small Saphenous: - Small Saphenous: - - [facility] UrinalysisOrdered By: Nicol Perez on 09-02-2024 Bacteria Auto Ql (U) None Seen None Se en /hpf [facility] Bilirubin Ql (U) Negative Negative [facility] th Clarity Refractometry automated (U) Clear Clear [facility] Color (U) Colorless Colorless, Yellow [facility] Epithelial cells.squamous Auto (Urine sed) [#/Area] [facility] Glucose Auto test strip (U) [Mass/Vol] Negative Negative mg/dL [facility] Hemoglobin Auto test strip Ql (U) Small Abnormal Negative [facility] Interpretation and review of laboratory results Abnormal [facility] Ketones (U) [Mass/Vol] Negative Negat radha mg/dL [facility] Leukocyte esterase Auto test strip Ql (U) Negative Negative [facility] Mucus Auto (Urine sed) [#/Area] Rare None Seen, Rare /lpf [facility] Nitrite Auto test strip Ql (U) Negative Negative [facility] pH (U) 5 [pH] 5.0 - 7.0 [facility] Protein (U) [Mass/Vol] Negative Negat radha mg/dL [facility] Specific gravity (U) [Rel density] 1.008 1.005 - 1.025 [facility] Urobilinogen (U) [Mass/Vol] mg/dL NINF - 2.0 mg/dL [facility] WBC Auto (Urine sed) [#/Area] 3 [facility] Microscopic examinat ion is performed on all urinalysis samples and only positive findings are reported. The test for blood on the chemical analytic portion of urinalysis may also be positive due to hemoglobinuria and myoglobinuria and if red blood cells are present they are quantified by microscopic examination. [facility] VBG (obtain and perform)on [facility] XR Chest PA and Abdomen APon 09-02-2024 No acute cardiopulmonary process. [employer] Workstation ID: [id number] [employer] EXAMINATION: XR CHEST PA/AP HISTORY: ORDERING SYSTEM [...] normal in size. Bony thorax is unremarkable. [facility] Maria Victoria Day, DO - 09/02/2024 [...] is unremarkable. IMPRESSION: No acute cardiopulmonary process. [employer] Workstation ID: [id number] [facility] Radiology Study observation (narrative) [facility] XR Chest PA and Abdomen APOr dered By: Maria Victoria Day on 09-02-2024 [facility] Work Phone: XR Knee - left 2 Viewson No acute osseous abnormality. Intact total knee replacement. ST/lab Workstation ID: [id number] [employer] RIS EXAMINATION: XR KNEE LEFT 2 VIEWS [...] the lateral view. No significant joint effusion. [facility] Xavier, Africatuan Claudeglo alexis, DO - [...] total knee replacement. ST/lab Workstation ID: [id number] [facility] Radiology Study observation (narrative) [facility] Basophil percentageOrdered B y: Jennifer Madison on 04-25-2024 Bilirubin [Mass/Vol] 0.20 mg/dL 0.20-1.00 [facility] Comment on above: For patients on eltr ombopag therapy, use of Dimension [place] TBIL is not recommended. Chloride [Moles/Vol] 104 mmol/L 98-107 [facility] Glucose [Mass/Vol] 137 mg/dL 74-106 [facility] Comment on above: Fasting Glucose resu lt greater than or equal to 126 mg/dL suggests DIABETES MELLITUS per A.D.A. criteria. Potassium [Moles/Vol] 4.7 mmol/L 3.5-5.1 [facility] Protein [Mass/Vol] 7.9 g/dL 6.4-8.2 [facility] Sodium [Moles/Vol] 138 mmol/L 136-145 [facility] Laboratory - Chemistry and C hemistry - challengeOrdered By: Jennifer Gordon on 02-29-2024 Albumin/Globulin [Mass ratio] 0.8 {ratio} 0.9-2.4 [facility] ALP [Catalytic activity/Vol] 85 U/L 45-117 [facility] ALT [Catalytic activity/Vol] 29 U/L 13-56 [facility] CO2 [Moles/Vol] 26.0 mmol/L 21.0-32.0 [facility] Globulin (S) [Mass/Vol] 4.4 g/dL 2.2-4.2 [facility] Urea nitrogen/Creatinine [Mass ratio] 10.6 mg/mg 10-20 [facility] No Panel InformationOrdered By: Jennifer oGrdon on 02-29-2024 Estimated GFR (MDRD) Amer 34 mL/min >60 [facility] Comment on above: GFR Calc Estimated GFR (MDRD) Non-Af Amer 28 mL/min >60 [facility] Comment on above: Non- GFR Calc Serum or plasma calcium marivel urement (mass/volume)Ordered By: Jennifer Gordon on 02-29-2024 Calcium [Mass/Vol] 9.3 mg/dL 8.5-10.1 [facility] Serum or plasma creatinine m easurement (mass/volume)Ordered By: Jennifer Gordon on 02-29-2024 Creatinine [Mass/Vol] 1.89 mg/dL 0.55-1.02 [facility] Comment on above: The validity of the calculated GFR & GFRAA in patients over 70 years has not been determined. Clinical correlation is essential. Serum or plasma thyroid stim ulating hormone (TSH) measurement (units/volume)Ordered By: Jennifer Gordon on 02-29-2024 TSH Qn 1.67 uIU/mL 0.358-3.74 [facility] Serum or plasma urea nitroge n measurement (mass/volume)Ordered By: Jennifer Gordon on 02-29-2024 Urea nitrogen [Mass/Vol] 20 mg/dL 7-18 [facility] Thin prep Papanicolaou smear with manual screeningOrdered By: Jennifer Gordon on 02-29-2024 Thin prep Papanicolaou smear with manual screening 3.5 g/dL 3.2-5.0 [facility] Thin prep Papanicolaou smear with manual screening 45 U/L 15-37 [facility] Thin prep Papanicolaou smear with manual screening 8 5-15 [facility] Whole blood hemoglobin A1c/t otal hemoglobin ratio (mass fraction)Ordered By: Jennifer Gordon on 02-29-2024 HbA1c (Bld) [Mass fraction] 5.9 % 3.8-5.6 [facility] Comment on above: Normal < 5.7 % Predi abetic 5.7 - 6.4 % Diabetic >or= 6.5 % Please note range changes. Absolute lymphocyte countOrd ered By: German Kamara on 12-29-2023 Lymphocytes Auto (Unsp spec) [#/Vol] 1.90 10*3/uL 0.83-4.51 [facility] Automated lymphocyte count a s percentage of total leukocytesOrdered By: German Kamara on 12-29-2023 Lymphocytes/100 WBC Auto (Unsp spec) 17.8 % 19-41 [facility] Basophil percentageOrdered B y: Jennifer Gordon on 12-29-2023 Bilirubin [Mass/Vol] 0.20 mg/dL 0.20-1.00 [facility] Comment on above: For patients on eltr ombopag therapy, use of Dimension [place] TBIL is not recommended. Chloride [Moles/Vol] 106 mmol/L 98-107 [facility] Cholesterol [Mass/Vol] 210 mg/dL <200 [facility] Comment on above: <200 mg/dL Desirable 200-240 mg/dL Borderline >240 mg/dL High Risk Glucose [Mass/Vol] 141 mg/dL 74-106 [facility] Comment on above: Fasting Glucose resu lt greater than or equal to 126 mg/dL suggests DIABETES MELLITUS per A.D.A. criteria. Potassium [Moles/Vol] 4.6 mmol/L 3.5-5.1 [facility] Protein [Mass/Vol] 7.7 g/dL 6.4-8.2 [facility] Sodium [Moles/Vol] 137 mmol/L 136-145 [facility] Triglyceride [Mass/Vol] 265 mg/dL <199 [facility] Comment on above: The drugs N-Acetylcy steine and Metamizole may falsely depress this assay.Serum Triglycerides Reference Interval Normal <150 mg/dL Borderline high 150 - 199 mg/dL High 200 - 499 mg/dL Very High > or = 500 mg/dL Basophil percentageOrdered B y: German Kamara on 12-29-2023 Basophils/100 WBC (Bld) 0.8 % 0-1 [facility] Eosinophils/100 WBC (Bld) 2.2 % 0-5 [facility] Hemoglobin (Bld) [Mass/Vol] 11.7 g/dL 12.0-15.0 [facility] Monocytes/100 WBC (Bld) 6.9 % 0-10 [facility] Neutrophils (Bld) [#/Vol] 7.7 10*3/uL 2.0-7.7 [facility] Neutrophils/100 WBC (Bld) 71.8 % 47-70 [facility] WBC (Bld) [#/Vol] 10.7 10*3/uL 4.4-11.0 [facility] Bilirubin Test strip Ql (U)O rdered By: German Kamara on 12-29-2023 Bilirubin Ql (U) Negative Negative [facility] Determination of erythrocyte mean corpuscular volume (MCV)Ordered By: German Kamara on 12-29-2023 MCV (RBC) [Entitic vol] 85.8 fL 81-99 [facility] Erythrocyte distribution wid th ratioOrdered By: German Kamara on 12-29-2023 Erythrocyte distribution width (RBC) [Ratio] 15.9 % 11.6-14.6 [facility] Erythrocyte distribution wid th standard deviationOrdered By: German Kamara on 12-29-2023 Erythrocyte distribution width (RBC) [Entitic vol] 50.2 fL 35.1-43.9 [facility] Hematocrit Auto (Bld) [Volum e fraction]Ordered By: German Kamara on 12-29-2023 Hematocrit (Bld) [Volume fraction] 39.3 % 37-47 [facility] Immature granulocytes/100 WB C Auto (Bld)Ordered By: German Kamara on 12-29-2023 Immature granulocytes/100 WBC (Bld) 0.500 % 0.0-0.9 [facility] Comment on above: IG% - Immature Granu locytes (promyelocytes, myelocytes and metamyelocytes) > 1% indicates that a LEFT SHIFT is Present. Ketones Test strip Ql (U)Ord ered By: German Kamara on 12-29-2023 Ketones Ql (U) Negative Negative [facility] Laboratory - Chemistry and C hemistry - challengeOrdered By: Jennifer Gordon on 12-29-2023 Albumin/Globulin [Mass ratio] 0.8 {ratio} 0.9-2.4 [facility] ALP [Catalytic activity/Vol] 89 U/L 45-117 [facility] ALT [Catalytic activity/Vol] 21 U/L 13-56 [facility] Cholesterol in HDL [Mass/Vol] 36 mg/dL >40 [facility] Comment on above: The drugs N-Acetylcy steine and Metamizole may falsely depress this assay. Reference Range HDL <40 mg/dL Low HDL Cholesterol HDL >or= 60 mg/dL High HDL Cholesterol Cholesterol in LDL [Mass/Vol] 121 mg/dL 0-130 [facility] CO2 [Moles/Vol] 26.0 mmol/L 21.0-32.0 [facility] Globulin (S) [Mass/Vol] 4.3 g/dL 2.2-4.2 [facility] Magnesium [Mass/Vol] 2.3 mg/dL 1.6-2.6 [facility] Urea nitrogen/Creatinine [Mass ratio] 13.5 mg/mg 10-20 [facility] Laboratory - Hematology and Cell countsOrdered By: German Kamara on 12-29-2023 MCH (RBC) [Entitic mass] 25.5 pg 27.0-32.0 [facility] MCHC (RBC) [Mass/Vol] 29.8 g/dL 32-36 [facility] Nucleated RBC/100 WBC (Bld) [Ratio] 0 % 0-5 [facility] Platelet mean volume (Bld) [Entitic vol] 10.2 fL 6.2-12.0 [facility] Platelets (Bld) [#/Vol] 350 10*3/uL 150-450 [facility] Nitrite Test strip Ql (U)Ord ered By: German Kamara on 12-29-2023 Nitrite Ql (U) Negative Negative [facility] No Panel InformationOrdered By: Jennifer Gordon on 12-29-2023 Estimated GFR (MDRD) Amer 33 mL/min >60 [facility] Comment on above: GFR Calc Estimated GFR (MDRD) Non-Af Amer 28 mL/min >60 [facility] Comment on above: Non- GFR Calc VLDL Cholesterol 53 mg/dL 5-40 [facility] No Panel InformationOrdered By: German Kamara on 12-29-2023 Parathyroid Hormone (Intact) 96.2 pg/mL 18.4-80.1 [facility] Vitamin D 25-Hydroxy 65.9 ng/mL [facility] Comment on above: Vitamin D 25(OH) Sta tus Range Deficiency <20 ng/mL (50nmol/L) Insufficiency 20 - 30 ng/mL (50 - 75 nmol/L) Sufficiency 30 - 100 ng/mL (75 - 250 nmol/L) Toxicity >100 ng/mL (>250 nmol/L) Protein Test strip Ql (U)Ord ered By: German Kamara on 12-29-2023 Protein Ql (U) 100 mg/dl Negative [facility] RBC Auto (Bld) [#/Vol]Ordere d By: German Kamara on 12-29-2023 RBC (Bld) [#/Vol] 4.58 10*6/uL 4.2-5.4 [facility] Serum or plasma calcium marivel urement (mass/volume)Ordered By: Jennifer Gordon on 12-29-2023 Calcium [Mass/Vol] 8.9 mg/dL 8.5-10.1 [facility] Serum or plasma creatinine m easurement (mass/volume)Ordered By: Jennifer Gordon on 12-29-2023 Creatinine [Mass/Vol] 1.93 mg/dL 0.55-1.02 [facility] Comment on above: The validity of the calculated GFR & GFRAA in patients over 70 years has not been determined. Clinical correlation is essential. Serum or plasma thyroid stim ulating hormone (TSH) measurement (units/volume)Ordered By: Jennifer Gordon on 12-29-2023 TSH Qn 24.50 uIU/mL 0.358-3.74 [facility] Serum or plasma triiodothyro nine measurement by immunoassay (mass/volume)Ordered By: Jennifer Gordon on 12-29-2023 T3 IA [Mass/Vol] 1.06 ng/mL 0.6-1.81 [facility] Serum or plasma urea nitroge n measurement (mass/volume)Ordered By: Jennifer Gordon on 12-29-2023 Urea nitrogen [Mass/Vol] 26 mg/dL 7-18 [facility] Thin prep Papanicolaou smear with manual screeningOrdered By: Jennifer Gordon on 12-29-2023 Thin prep Papanicolaou smear with manual screening 3.4 g/dL 3.2-5.0 [facility] Thin prep Papanicolaou smear with manual screening 20 U/L 15-37 [facility] Thin prep Papanicolaou smear with manual screening 5 5-15 [facility] Thin prep Papanicolaou smear with manual screening 1.10 ng/dL 0.76-1.46 [facility] Thin prep Papanicolaou smear with manual screeningOrdered By: German Kamara on 12-29-2023 Protein (U) [Mass/Vol] 62.0 mg/dL 0.0-11.8 [facility] Urine blood detectionOrdered By: German Kamara on 12-29-2023 RBC Ql (U) Negative Negative [facility] Urine clarityOrdered By: Ludin Kamara on 12-29-2023 Clarity (U) Clear Clear [facility] Urine color determinationOrd ered By: German Kamara on 12-29-2023 Color (U) Yellow Yellow [facility] Urine creatinine measurement (mass/volume)Ordered By: German Kamara on 12-29-2023 Creatinine (U) [Mass/Vol] 98.60 mg/dL NO RANGE EST. [facility] Urine glucose detectionOrder ed By: German Kamara on 12-29-2023 Glucose Ql (U) Normal mg/dl Normal [facility] Urine leukocyte esterase det ection by dipstickOrdered By: German Kamara on 12-29-2023 Leukocyte esterase Test strip Ql (U) 100 /ul Negative [facility] Urine pHOrdered By: Harriet Kamara on 12-29-2023 pH (U) 6.0 [pH] 5.0 - 8.0 [facility] Urine protein/creatinine mas s ratioOrdered By: German Kamara on 12-29-2023 Protein/Creatinine (U) [Mass ratio] 629 mg/g CRE 0-200 [facility] Urine specific gravity measu rementOrdered By: German Kamara on 12-29-2023 Specific gravity (U) [Rel density] 1.015 1.002-1.030 [facility] Urine urobilinogen measureme ntOrdered By: German Kamara on 12-29-2023 Urobilinogen Ql (U) Normal mg/dl Normal [facility] Albumin Elph [Mass/Vol]Order ed By: Rusty Dozier on 11-28-2023 Albumin [Mass/Vol] 3.8 g/dL 2.9-4.4 [facility] Basophil percentageOrdered B y: Rusty Dozier on 01-23-2024 Basophil percentage Comment . [facility] Comment on above: Bence Davila Protein positive; kappa type.Performed at: [employer] [facility] [id number] Director: Myron Kennedy PhD, Phone: [phone] Interpretation of serum or p lasma protein pattern by immunofixation (narrative resultOrdered By: Rusty Dozier on 11-28-2023 Protein Fractions Immunofixation Jamison [Interp] Not Observed g/dL Not Observed [facility] Laboratory - Chemistry and C hemistry - challengeOrdered By: Rusty Dozier on 11-28-2023 IgM (U) [Mass/Vol] 58 mg/dL 26-217 [facility] No Panel InformationOrdered By: Rusty Dozier on 11-28-2023 Addendum Document Comment . [facility] Comment on above: Protein electrophore sis scan will follow via computer,mail, or census clerk delivery. Free Lambda Light Chains, Quant 41.5 mg/L 5.7-26.3 [facility] Serum [id number] measu rement by electrophoresisOrdered By: Rusty Dozier on 11-28-2023 Alpha 1 globulin Elph [Mass/Vol] 0.2 g/dL 0.0-0.4 [facility] Alpha 1 globulin Elph [Mass/Vol] 1.0 g/dL 0.4-1.0 [facility] Serum globulin measurement ( mass/volume)Ordered By: Rusty Dozier on 11-28-2023 Globulin (S) [Mass/Vol] 3.6 g/dL 2.2-3.9 [facility] Serum immunoglobulin kappa l ight chains/immunoglobulin lambda light chains mass ratioOrdered By: Rusty Dozier on 11-28-2023 Immunoglobulin light chains.kappa/Immunoglob ulin light chains.lambda (S) [Mass ratio] 1.26 0.26-1.65 [facility] Serum or plasma IgA measurem ent (mass/volume)Ordered By: Rusty Dozier on 11-28-2023 IgA [Mass/Vol] 147 mg/dL 87-352 [facility] Serum or plasma IgG measurem ent (mass/volume)Ordered By: Rusty Dozier on 11-28-2023 IgG [Mass/Vol] 1444 mg/dL 586-1602 [facility] Serum or plasma beta globuli n measurement by electrophoresis (mass/volume)Ordered By: Rusty Dozier on 11-28-2023 Beta globulin Elph [Mass/Vol] 1.1 g/dL 0.7-1.3 [facility] Serum or plasma gamma globul in measurement by electrophoresis (mass/volume)Ordered By: Rusty Dozier on 11-28-2023 Gamma globulin Elph [Mass/Vol] 1.3 g/dL 0.4-1.8 [facility] Serum or plasma immunoelectr ophoresis interpretation (nominal result)Ordered By: Rusty Dozier on 11-28-2023 Interpretation IEP [Interp] Comment . [facility] Comment on above: No monoclonality det ected. Serum or plasma immunoglobul in kappa light chains measurement (mass/volume)Ordered By: Rusty Dozier on 11-28-2023 Immunoglobulin light chains.kappa [Mass/Vol] 52.2 mg/L 3.3-19.4 [facility] Thin prep Papanicolaou smear with manual screeningOrdered By: Rusty Dozier on 11-28-2023 Thin prep Papanicolaou smear with manual screening 1.1 0.7-1.7 [facility] Total protein bloodOrdered B y: Rusty Dozier on 11-28-2023 Protein [Mass/Vol] 7.4 g/dL 6.0-8.5 [facility] Tendon Injection: Flexor Ten don Sheathon 10-16-2023 Rivas Jules MD 10/16/2023 2:42 PM Tendon Injection: Flexor Tendon Sheath Performed by: Rivas Jules MD Authorized by: Rivas Jules MD Consent given by: Patient Timeout performed at: 10/16/2023 2:41 PM Indications: Pain Location: Thumb Laterality: Left Needle size: 22 G Medications: 80 mg methylPREDNISolone acetate 40 mg/mL Anesthetic used: Lidocaine 1% [facility] Absolute lymphocyte countOrd ered By: Jennifer Gordon on 06-05-2023 Lymphocytes Auto (Unsp spec) [#/Vol] 2.66 10*3/uL 0.83-4.51 [facility] Basophil percentageOrdered B y: Jennifer Gordon on 06-05-2023 Basophils/100 WBC (Bld) 0.8 % 0-1 [facility] Bilirubin [Mass/Vol] 0.20 mg/dL 0.20-1.00 [facility] Comment on above: For patients on eltr ombopag therapy, use of Dimension [place] TBIL is not recommended. Chloride [Moles/Vol] 104 mmol/L 98-107 [facility] Cholesterol [Mass/Vol] 220 mg/dL <200 [facility] Comment on above: <200 mg/dL Desirable 200-240 mg/dL Borderline >240 mg/dL High Risk Eosinophils/100 WBC (Bld) 3.4 % 0-5 [facility] Glucose [Mass/Vol] 107 mg/dL 74-106 [facility] Comment on above: Fasting Glucose resu lt from 100 to 125 mg/dL suggests IMPAIRED HOMEOSTASIS per A.D.A. criteria. Neutrophils (Bld) [#/Vol] 6.1 10*3/uL 2.0-7.7 [facility] Neutrophils/100 WBC (Bld) 60.7 % 47-70 [facility] Potassium [Moles/Vol] 5.4 mmol/L 3.5-5.1 [facility] Protein [Mass/Vol] 8.1 g/dL 6.4-8.2 [facility] Sodium [Moles/Vol] 136 mmol/L 136-145 [facility] Triglyceride [Mass/Vol] 240 mg/dL <199 [facility] Comment on above: The drugs N-Acetylcy steine and Metamizole may falsely depress this assay.Serum Triglycerides Reference Interval Normal <150 mg/dL Borderline high 150 - 199 mg/dL High 200 - 499 mg/dL Very High > or = 500 mg/dL WBC (Bld) [#/Vol] 10.0 10*3/uL 4.4-11.0 [facility] Blood erythrocytes count (nu mber/volume)Ordered By: Jennifer Gordon on 06-05-2023 RBC (Bld) [#/Vol] 4.74 10*6/uL 4.2-5.4 [facility] Blood hemoglobin measurement (mass/volume)Ordered By: Jennifer Gordon on 06-05-2023 Hemoglobin (Bld) [Mass/Vol] 11.5 g/dL 12.0-15.0 [facility] Blood lymphocytes/100 leukoc ytesOrdered By: Jennifer Gordon on 06-05-2023 Lymphocytes/100 WBC (Bld) 26.7 % 19-41 [facility] Blood monocytes/100 leukocyt esOrdered By: Jennifer Gordon on 06-05-2023 Monocytes/100 WBC (Bld) 7.9 % 0-10 [facility] Blood platelet mean volumeOr dered By: Jennifer Gordon on 06-05-2023 Platelet mean volume (Bld) [Entitic vol] 10.5 fL 6.2-12.0 [facility] Determination of erythrocyte mean corpuscular volume (MCV)Ordered By: Jennifer Gordon on 06-05-2023 MCV (RBC) [Entitic vol] 83.8 fL 81-99 [facility] Hematocrit Auto (Bld) [Volum e fraction]Ordered By: Jennifer Gordon on 06-05-2023 Hematocrit (Bld) [Volume fraction] 39.7 % 37-47 [facility] Laboratory - Chemistry and C hemistry - challengeOrdered By: Jennifer Gordon on 06-05-2023 ALP [Catalytic activity/Vol] 105 U/L 45-117 [facility] ALT [Catalytic activity/Vol] 18 U/L 13-56 [facility] CO2 [Moles/Vol] 26.0 mmol/L 21.0-32.0 [facility] Globulin (S) [Mass/Vol] 4.6 g/dL 2.2-4.2 [facility] Lipase [Catalytic activity/Vol] 69 U/L 13-75 [facility] Comment on above: Please note:LIPASE r evised reference range effective 23. New Lipase methodology. Expected to produce lower values than the previous assay method. NEW Reference Range: 13 - 75 U/L Urea nitrogen/Creatinine [Mass ratio] 12.2 mg/mg 10-20 [facility] Laboratory - Hematology and Cell countsOrdered By: Jennifer Gordon on 06-05-2023 Erythrocyte distribution width (RBC) [Entitic vol] 50.5 fL 35.1-43.9 [facility] Erythrocyte distribution width (RBC) [Ratio] 16.6 % 11.6-14.6 [facility] Immature granulocytes/100 WBC (Bld) 0.500 % 0.0-0.9 [facility] Comment on above: IG% - Immature Granu locytes (promyelocytes, myelocytes and metamyelocytes) > 1% indicates that a LEFT SHIFT is Present. MCH (RBC) [Entitic mass] 24.3 pg 27.0-32.0 [facility] Nucleated RBC/100 WBC (Bld) [Ratio] 0 % 0-5 [facility] MCHC Auto (RBC) [Mass/Vol]Or dered By: Jennifer Gordon on 06-05-2023 MCHC (RBC) [Mass/Vol] 29.0 g/dL 32-36 [facility] No Panel InformationOrdered By: Jennifer Gordon on 06-05-2023 Endomysial IgA Antibody Negative Negative [facility] Estimated GFR (MDRD) Amer 36 mL/min >60 [facility] Comment on above: GFR Calc Estimated GFR (MDRD) Non-Af Amer 30 mL/min >60 [facility] Comment on above: Non- GFR Calc Thyroid Stimulating Hormone (TSH) 0.12 uIU/mL 0.358-3.74 [facility] Vitamin D 25-Hydroxy 42.0 ng/mL [facility] Comment on above: Vitamin D 25(OH) Sta tus Range Deficiency <20 ng/mL (50nmol/L) Insufficiency 20 - 30 ng/mL (50 - 75 nmol/L) Sufficiency 30 - 100 ng/mL (75 - 250 nmol/L) Toxicity >100 ng/mL (>250 nmol/L) Platelets bldOrdered By: Amadou Gordon on 06-05-2023 Platelets (Bld) [#/Vol] 370 10*3/uL 150-450 [facility] Serum IgA measurement (units /volume)Ordered By: Jennifer Gordon on 06-05-2023 IgA Qn (S) 135 mg/dL 87-352 [facility] Comment on above: Performed at: [facility] [id number] [place], [place] [id number] Director: Myron Kennedy PhD, Phone: [phone] Serum or plasma albumin marivel urement (mass/volume)Ordered By: Jennifer Gordon on 06-05-2023 Albumin [Mass/Vol] 3.5 g/dL 3.2-5.0 [facility] Serum or plasma albumin/glob ulin mass ratioOrdered By: Jennifer Gordon on 06-05-2023 Albumin/Globulin [Mass ratio] 0.8 {ratio} 0.9-2.4 [facility] Serum or plasma calcium marivel urement (mass/volume)Ordered By: Jennifer Gordon on 06-05-2023 Calcium [Mass/Vol] 9.1 mg/dL 8.5-10.1 [facility] Serum or plasma cholesterol in HDL measurement (mass/volume)Ordered By: Jennifer Gordon on 06-05-2023 Cholesterol in HDL [Mass/Vol] 40 mg/dL >40 [facility] Comment on above: The drugs N-Acetylcy steine and Metamizole may falsely depress this assay. Reference Range HDL <40 mg/dL Low HDL Cholesterol HDL >or= 60 mg/dL High HDL Cholesterol Serum or plasma cholesterol in VLDL measurement (mass/volume)Ordered By: Jennifer Gordon on 06-05-2023 Cholesterol in VLDL [Mass/Vol] 48 mg/dL 5-40 [facility] Serum or plasma creatinine m easurement (mass/volume)Ordered By: Jennifer Gordon on 06-05-2023 Creatinine [Mass/Vol] 1.80 mg/dL 0.55-1.02 [facility] Comment on above: The validity of the calculated GFR & GFRAA in patients over 70 years has not been determined. Clinical correlation is essential. Serum or plasma low density lipoprotein (LDL) cholesterol measurement (mass/volume)Ordered By: Jennifer Gordon on 06-05-2023 Cholesterol in LDL [Mass/Vol] 132 mg/dL 0-130 [facility] Serum or plasma urea nitroge n measurement (mass/volume)Ordered By: Jennifer Gordon on 06-05-2023 Urea nitrogen [Mass/Vol] 22 mg/dL 7-18 [facility] Serum tissue transglutaminas e IgA antibody assay (units/volume)Ordered By: Jennifer Gordon on 06-05-2023 tTG IgA Qn (S) <2 U/mL 0-3 [facility] Comment on above: Negative 0 - 3 Weak Positive 4 - 10 Positive >10 Tissue Transglutaminase (tTG) has been identified as the endomysial antigen. Studies have demonstr- ated that endomysial IgA antibodies have over 99% specificity for gluten sensitive enteropathy. Thin prep Papanicolaou smear with manual screeningOrdered By: Jennifer Gordon on 06-05-2023 Thin prep Papanicolaou smear with manual screening 17 U/L 15-37 [facility] Thin prep Papanicolaou smear with manual screening 6 5-15 [facility] ACYLCARNITINES, QUANTITATIVE , BLOOD SPOT FILTER PAPERon 02-15-2023 3-Hydroxyisovalerylcarn itine (C5-OH) (DBS) [Moles/Vol] 0.12 umol/L NINF - 0.40 umol/L [facility] Acylcarnitine pattern [Interp] Interpretation: [facility] Comment on above: Clinical correlation suggested. Mild elevation in isovalerylcarnitine (C5), can be seen in isovaleric acidemia. Otherwise unremarkable profile. Adipoylcarnitine (C6-DC) (DBS) [Moles/Vol] <0.01 NINF - 0.10 umol/L [facility] C0 (DBS) [Moles/Vol] 19.70 umol/L 15.0 - 55.0 umol/L [facility] C10 (DBS) [Moles/Vol] 0.09 umol/L NINF - 0.25 umol/L [facility] C10:1 (DBS) [Moles/Vol] <0.08 NINF - 0.50 umol/L [facility] C10:2 (DBS) [Moles/Vol] <0.04 NINF - 0.28 umol/L [facility] C12 (DBS) [Moles/Vol] 0.14 umol/L High NINF - 0.13 umol/L [facility] C12:1 (DBS) [Moles/Vol] 0.03 umol/L NINF - 0.19 umol/L [facility] C14 (DBS) [Moles/Vol] 0.17 umol/L High NINF - 0.15 umol/L [facility] C14-OH (DBS) [Moles/Vol] 0.02 umol/L NINF - 0.13 umol/L [facility] C14:1 (DBS) [Moles/Vol] 0.05 umol/L NINF - 0.21 umol/L [facility] C14:2 (DBS) [Moles/Vol] 0.02 umol/L NINF - 0.12 umol/L [facility] C16 (DBS) [Moles/Vol] 1.25 umol/L NINF - 1.73 umol/L [facility] C16-OH (DBS) [Moles/Vol] 0.02 umol/L NINF - 0.10 umol/L [facility] C16:1 (DBS) [Moles/Vol] 0.12 umol/L NINF - 0.19 umol/L [facility] C16:1-OH (DBS) [Moles/Vol] 0.11 umol/L High NINF - 0.11 umol/L [facility] C18 (DBS) [Moles/Vol] 0.46 umol/L NINF - 1.19 umol/L [facility] C18-OH (DBS) [Moles/Vol] 0.02 umol/L NINF - 0.04 umol/L [facility] C18:1 (DBS) [Moles/Vol] 0.87 umol/L 0.24 - 2.64 umol/L [facility] C18:1-OH (DBS) [Moles/Vol] <0.07 NINF - 0.07 umol/L [facility] C18:2 (DBS) [Moles/Vol] 0.25 umol/L NINF - 1.00 umol/L [facility] C18:2-OH (DBS) [Moles/Vol] <0.03 NINF - 0.15 umol/L [facility] C2 (DBS) [Moles/Vol] 10.45 umol/L 2.77 - 30.47 umol/L [facility] C3 (DBS) [Moles/Vol] 1.63 umol/L NINF - 2.35 umol/L [facility] C3-DC (DBS) [Moles/Vol] <0.04 NINF - 0.15 umol/L [facility] C4-DC (DBS) [Moles/Vol] 0.28 umol/L NINF - 0.84 umol/L [facility] C4-OH (DBS) [Moles/Vol] 0.03 umol/L NINF - 0.21 umol/L [facility] C5-DC (DBS) [Moles/Vol] 0.03 umol/L NINF - 0.11 umol/L [facility] C6 (DBS) [Moles/Vol] 0.05 umol/L NINF - 0.16 umol/L [facility] C8 (DBS) [Moles/Vol] 0.05 umol/L NINF - 0.14 umol/L [facility] C8:1 (DBS) [Moles/Vol] 0.08 umol/L NINF - 0.35 umol/L [facility] Interpretation and review of laboratory results Abnormal [facility] Isobutyrylcarnitine (C4) (DBS) [Moles/Vol] 0.21 umol/L NINF - 0.50 umol/L [facility] Isovalerylcarnitine+Met hylbutyrylcarnitine (C5) (DBS) [Moles/Vol] 0.44 umol/L High NINF - 0.28 umol/L [facility] Service comment 02 (Unsp spec) [Interp] This test was developed and its performance characteristics determined by [facility]. It has not been cleared or approved by the FDA. The laboratory is regulated under CLIA as qualified to perform high complexity testing. This test is used for clinical purposes. It should not be regarded as investigational or for research. [facility] Tiglylcarnitine (C5:1) (DBS) [Moles/Vol] 0.01 umol/L NINF - 0.50 umol/L [facility] Acylcarnitine panelon 2022 3-Hydroxyisovalerylcarn itine (C5-OH) [Moles/Vol] Test ordered in error based on source collected. Appropriate test code has been ordered. NINF - 0.20 umol/L [facility] Comment on above: PER SAMPLE RECVD REO RDERED FPACP SEE 3-Hydroxytetradecenoylc arnitine (C14:1-OH) [Moles/Vol] Test ordered in error based on source collected. Appropriate test code has been ordered. NINF - 0.13 umol/L [facility] Comment on above: PER SAMPLE RECVD REO RDERED FPACP SEE Acylcarnitine pattern [Interp] Test ordered in error based on source collected. Appropriate test code has been ordered. [facility] Comment on above: PER SAMPLE RECVD REO RDERED FPACP SEE Adipoylcarnitine (C6-DC) [Moles/Vol] Test ordered in error based on source collected. Appropriate test code has been ordered. NINF - 0.13 umol/L [facility] Comment on above: PER SAMPLE RECVD REO RDERED FPACP SEE C0 [Moles/Vol] Test ordered in erro r based on source collected. Appropriate test code has been ordered. 22 - 52 umol/L [facility] Comment on above: PER SAMPLE RECVD REO RDERED FPACP SEE C10 [Moles/Vol] Test ordered in erro r based on source collected. Appropriate test code has been ordered. NINF - 1.05 umol/L [facility] Comment on above: PER SAMPLE RECVD REO RDERED FPACP SEE C10:1 [Moles/Vol] Test ordered in erro r based on source collected. Appropriate test code has been ordered. NINF - 0.53 umol/L [facility] Comment on above: PER SAMPLE RECVD REO RDERED FPACP SEE C10:2 [Moles/Vol] Test ordered in erro r based on source collected. Appropriate test code has been ordered. NINF - 0.30 umol/L [facility] Comment on above: PER SAMPLE RECVD REO RDERED FPACP SEE C12 [Moles/Vol] Test ordered in erro r based on source collected. Appropriate test code has been ordered. NINF - 0.34 umol/L [facility] Comment on above: PER SAMPLE RECVD REO RDERED FPACP SEE C12-[place] [Moles/Vol] Test ordered in erro r based on source collected. Appropriate test code has been ordered. NINF - 0.09 umol/L [facility] Comment on above: PER SAMPLE RECVD REO RDERED FPACP SEE C12:1 [Moles/Vol] Test ordered in erro r based on source collected. Appropriate test code has been ordered. NINF - 0.35 umol/L [facility] Comment on above: PER SAMPLE RECVD REO RDERED FPACP SEE C14 [Moles/Vol] Test ordered in erro r based on source collected. Appropriate test code has been ordered. NINF - 0.17 umol/L [facility] Comment on above: PER SAMPLE RECVD REO RDERED FPACP SEE C14-[place] [Moles/Vol] Test ordered in erro r based on source collected. Appropriate test code has been ordered. NINF - 0.08 umol/L [facility] Comment on above: PER SAMPLE RECVD REO RDERED FPACP SEE C14:1 [Moles/Vol] Test ordered in erro r based on source collected. Appropriate test code has been ordered. NINF - 0.32 umol/L [facility] Comment on above: PER SAMPLE RECVD REO RDERED FPACP SEE C14:2 [Moles/Vol] Test ordered in erro r based on source collected. Appropriate test code has been ordered. NINF - 0.22 umol/L [facility] Comment on above: PER SAMPLE RECVD REO RDERED FPACP SEE C16 [Moles/Vol] Test ordered in erro r based on source collected. Appropriate test code has been ordered. NINF - 0.29 umol/L [facility] Comment on above: PER SAMPLE RECVD REO RDERED FPACP SEE C16-OH [Moles/Vol] Test ordered in erro r based on source collected. Appropriate test code has been ordered. NINF - 0.06 umol/L [facility] Comment on above: PER SAMPLE RECVD REO RDERED FPACP SEE C16:1 [Moles/Vol] Test ordered in erro r based on source collected. Appropriate test code has been ordered. NINF - 0.10 umol/L [facility] Comment on above: PER SAMPLE RECVD REO RDERED FPACP SEE C16:1-OH [Moles/Vol] Test ordered in err or based on source collected. Appropriate test code has been ordered. NINF - 0.07 umol/L [facility] Comment on above: PER SAMPLE RECVD REO RDERED FPACP SEE C18 [Moles/Vol] Test ordered in erro r based on source collected. Appropriate test code has been ordered. NINF - 0.17 umol/L [facility] Comment on above: PER SAMPLE RECVD REO RDERED FPACP SEE C18-[place] [Moles/Vol] Test ordered in erro r based on source collected. Appropriate test code has been ordered. NINF - 0.07 umol/L [facility] Comment on above: PER SAMPLE RECVD REO RDERED FPACP SEE C18:1 [Moles/Vol] Test ordered in erro r based on source collected. Appropriate test code has been ordered. NINF - 0.43 umol/L [facility] Comment on above: PER SAMPLE RECVD REO RDERED FPACP SEE C18:1-[place] [Moles/Vol] Test ordered in err or based on source collected. Appropriate test code has been ordered. NINF - 0.10 umol/L [facility] Comment on above: PER SAMPLE RECVD REO RDERED FPACP SEE C18:2 [Moles/Vol] Test ordered in erro r based on source collected. Appropriate test code has been ordered. NINF - 0.26 umol/L [facility] Comment on above: PER SAMPLE RECVD REO RDERED FPACP SEE C18:2-[place] [Moles/Vol] Test ordered in err or based on source collected. Appropriate test code has been ordered. NINF - 0.11 umol/L [facility] Comment on above: PER SAMPLE RECVD REO RDERED FPACP SEE C2 [Moles/Vol] Test ordered in erro r based on source collected. Appropriate test code has been ordered. 2.84 - 25.30 umol/L [facility] Comment on above: PER SAMPLE RECVD REO RDERED FPACP SEE C3 [Moles/Vol] Test ordered in erro r based on source collected. Appropriate test code has been ordered. NINF - 1.00 umol/L [facility] Comment on above: PER SAMPLE RECVD REO RDERED FPACP SEE C3-DC [Moles/Vol] Test ordered in erro r based on source collected. Appropriate test code has been ordered. NINF - 0.14 umol/L [facility] Comment on above: PER SAMPLE RECVD REO RDERED FPACP SEE C4-DC [Moles/Vol] Test ordered in erro r based on source collected. Appropriate test code has been ordered. NINF - 0.25 umol/L [facility] Comment on above: PER SAMPLE RECVD REO RDERED FPACP SEE C4-[place] [Moles/Vol] Test ordered in erro r based on source collected. Appropriate test code has been ordered. NINF - 0.40 umol/L [facility] Comment on above: PER SAMPLE RECVD REO RDERED FPACP SEE C5-DC [Moles/Vol] Test ordered in erro r based on source collected. Appropriate test code has been ordered. NINF - 0.18 umol/L [facility] Comment on above: PER SAMPLE RECVD REO RDERED FPACP SEE C6 [Moles/Vol] Test ordered in erro r based on source collected. Appropriate test code has been ordered. NINF - 0.42 umol/L [facility] Comment on above: PER SAMPLE RECVD REO RDERED FPACP SEE C6-OH [Moles/Vol] Test ordered in erro r based on source collected. Appropriate test code has been ordered. NINF - 0.20 umol/L [facility] Comment on above: PER SAMPLE RECVD REO RDERED FPACP SEE C8 [Moles/Vol] Test ordered in erro r based on source collected. Appropriate test code has been ordered. NINF - 1.00 umol/L [facility] Comment on above: PER SAMPLE RECVD REO RDERED FPACP SEE C8-DC [Moles/Vol] Test ordered in erro r based on source collected. Appropriate test code has been ordered. NINF - 0.10 umol/L [facility] Comment on above: PER SAMPLE RECVD REO RDERED FPACP SEE C8:1 [Moles/Vol] Test ordered in erro r based on source collected. Appropriate test code has been ordered. NINF - 0.97 umol/L [facility] Comment on above: PER SAMPLE RECVD REO RDERED FP[facility] SEE Carnitine [Moles/Vol] Test ordered in er ror based on source collected. Appropriate test code has been ordered. 27 - 66 umol/L [facility] Comment on above: PER SAMPLE RECVD REO RDERED FPACP SEE Isobutyrylcarnitine (C4) [Moles/Vol] Test ordered in error based on source collected. Appropriate test code has been ordered. NINF - 1.01 umol/L [facility] Comment on above: PER SAMPLE RECVD REO RDERED FPACP SEE Isovalerylcarnitine+Met hylbutyrylcarnitine (C5) [Moles/Vol] Test ordered in error based on source collected. Appropriate test code has been ordered. NINF - 0.65 umol/L [facility] Comment on above: PER SAMPLE RECVD REO RDERED FPACP SEE Service comment 02 (Unsp spec) [Interp] Test ordered in error based on source collected. Appropriate test code has been ordered. [facility] Comment on above: PER SAMPLE RECVD REO RDERED FPACP SEE CORRECTED on 02/14 AT 0956: Result was previously reported as: This test was developed and its performance characteristics determined by [facility]. It has not been cleared or approved by the FDA. The laboratory is regulated under CLIA as qualified to perform high complexity testing. This test is used for clinical purposes. It should not be regarded as investigational or for research. Tiglylcarnitine (C5:1) [Moles/Vol] Test ordered in error based on source collected. Appropriate test code has been ordered. NINF - 0.15 umol/L [facility] Comment on above: PER SAMPLE RECVD REO RDERED FPACP SEE [facility] Albumin Elph [Mass/Vol]Order ed By: Dr. Dozier on 02-07-2023 Albumin [Mass/Vol] 3.7 g/dL 2.9-4.4 [facility] Basophil percentageOrdered B y: Dr. Dozier on 02-07-2023 Basophil percentage Comment . [facility] Comment on above: Bence Davila Protein positive; kappa type.Performed at: - [facility] [id number] Director: Myron Kennedy PhD, Phone: [phone] Chloride [Moles/Vol] 103 mmol/L 98-107 [facility] Glucose [Mass/Vol] 107 mg/dL 74-106 [facility] Comment on above: Fasting Glucose resu lt from 100 to 125 mg/dL suggests IMPAIRED HOMEOSTASIS per A.D.A. criteria. Potassium [Moles/Vol] 5.1 mmol/L 3.5-5.1 [facility] Sodium [Moles/Vol] 134 mmol/L 136-145 [facility] Interpretation of serum or p lasma protein pattern by immunofixation (narrative resultOrdered By: Dr. Dozier on 02-07-2023 Protein Fractions Immunofixation Jamison [Interp] See comment [facility] Comment on above: Result: Not Observed Laboratory - Chemistry and C hemistry - challengeOrdered By: Dr. Dozier on 02-07-2023 CO2 [Moles/Vol] 26.0 mmol/L 21.0-32.0 [facility] Urea nitrogen/Creatinine [Mass ratio] 14.0 mg/mg 10-20 [facility] No Panel InformationOrdered By: Dr. Dozier on 02-07-2023 Addendum Document Comment . [facility] Comment on above: Protein electrophore sis scan will follow via computer,mail, or census clerk delivery. Estimated GFR (MDRD) Amer 37 mL/min >60 [facility] Comment on above: GFR Calc Estimated GFR (MDRD) Non-Af Amer 30 mL/min >60 [facility] Comment on above: Non- GFR Calc Free Lambda Light Chains, Quant 46.9 mg/L 5.7-26.3 [facility] Serum [id number] measu rement by electrophoresisOrdered By: Dr. Dozier on 02-07-2023 Alpha 1 globulin Elph [Mass/Vol] 0.3 g/dL 0.0-0.4 [facility] Alpha 1 globulin Elph [Mass/Vol] 1.1 g/dL 0.4-1.0 [facility] Serum globulin measurement ( mass/volume)Ordered By: Dr. Dozier on 02-07-2023 Globulin (S) [Mass/Vol] 4.2 g/dL 2.2-3.9 [facility] Serum immunoglobulin kappa l ight chains/immunoglobulin lambda light chains mass ratioOrdered By: Dr. Dozier on 02-07-2023 Immunoglobulin light chains.kappa/Immunoglob ulin light chains.lambda (S) [Mass ratio] 1.34 0.26-1.65 [facility] Serum or plasma IgA measurem ent (mass/volume)Ordered By: Dr. Dozier on 02-07-2023 IgA [Mass/Vol] 119 mg/dL 87-352 [facility] Serum or plasma IgG measurem ent (mass/volume)Ordered By: Dr. Dozier on 02-07-2023 IgG [Mass/Vol] 1604 mg/dL [phone] [facility] Serum or plasma IgM measurem ent (mass/volume)Ordered By: Dr. Dozier on 02-07-2023 IgM [Mass/Vol] 58 mg/dL 26-217 [facility] Serum or plasma beta globuli n measurement by electrophoresis (mass/volume)Ordered By: Dr. Dozier on 02-07-2023 Beta globulin Elph [Mass/Vol] 1.2 g/dL 0.7-1.3 [facility] Serum or plasma calcitriol m easurement (mass/volume)Ordered By: Dr. Dozier on 02-07-2023 1,25-dihydroxyvitamin D3 [Mass/Vol] 17.1 pg/mL 24.8-81.5 [facility] Comment on above: Performed at: [address] [id number] Director: Braulio Rubio MD, Phone: [phone] Serum or plasma calcium marivel urement (mass/volume)Ordered By: Dr. Dozier on 02-07-2023 Calcium [Mass/Vol] 9.5 mg/dL 8.5-10.1 [facility] Serum or plasma creatinine m easurement (mass/volume)Ordered By: Dr. Dozier on 02-07-2023 Creatinine [Mass/Vol] 1.78 mg/dL 0.55-1.02 [facility] Comment on above: The validity of the calculated GFR & GFRAA in patients over 70 years has not been determined. Clinical correlation is essential. Serum or plasma gamma globul in measurement by electrophoresis (mass/volume)Ordered By: Dr. Dozier on 02-07-2023 Gamma globulin Elph [Mass/Vol] 1.6 g/dL 0.4-1.8 [facility] Serum or plasma immunoelectr ophoresis interpretation (nominal result)Ordered By: Dr. Dozier on 02-07-2023 Interpretation IEP [Interp] Comment . [facility] Comment on above: No monoclonality det ected. Serum or plasma immunoglobul in kappa light chains measurement (mass/volume)Ordered By: Dr. Dozier on 02-07-2023 Immunoglobulin light chains.kappa [Mass/Vol] 62.9 mg/L 3.3-19.4 [facility] Serum or plasma urea nitroge n measurement (mass/volume)Ordered By: Dr. Dozier on 02-07-2023 Urea nitrogen [Mass/Vol] 25 mg/dL 7-18 [facility] Thin prep Papanicolaou smear with manual screeningOrdered By: Dr. Dozier on 02-07-2023 Thin prep Papanicolaou smear with manual screening 5 5-15 [facility] Thin prep Papanicolaou smear with manual screening 0.9 0.7-1.7 [facility] Total protein bloodOrdered B y: Dr. Dozier on 02-07-2023 Protein [Mass/Vol] 7.9 g/dL 6.0-8.5 [facility] Basophil percentageOrdered B y: Dr. Dozier on 12-07-2022 Basophil percentage Comment: . [facility] Comment on above: Presence of monoclon al protein is unclear at this time. Suggestrepeat in 3 to 6 months if clinically indicated.Performed at: [place] [id number] Director: Myron Kennedy PhD, Phone: [phone] Basophil percentageon 2022 Basophil percentage 3.6 mg/dL 2.5-4.9 [facility] Chloride [Moles/Vol] 97 mmol/L 98-107 [facility] Glucose [Mass/Vol] 120 mg/dL 74-106 [facility] Comment on above: Fasting Glucose resu lt from 100 to 125 mg/dL suggests IMPAIRED HOMEOSTASIS per A.D.A. criteria. Potassium [Moles/Vol] 4.6 mmol/L 3.5-5.1 [facility] Sodium [Moles/Vol] 134 mmol/L 136-145 [facility] Bilirubin Test strip Ql (U)o n 12-07-2022 Bilirubin Ql (U) Negative Negative [facility] Ketones Test strip Ql (U)on 12-07-2022 Ketones Ql (U) Negative Negative [facility] Laboratory - Chemistry and C hemistry - challengeon 12-07-2022 CO2 [Moles/Vol] 28.0 mmol/L 21.0-32.0 [facility] Urea nitrogen/Creatinine [Mass ratio] 12.2 mg/mg 10-20 [facility] Nitrite Test strip Ql (U)on 12-07-2022 Nitrite Ql (U) Negative Negative [facility] No Panel Informationon 12-07 Estimated GFR (MDRD) Amer 46 mL/min >60 [facility] Comment on above: GFR Calc Estimated GFR (MDRD) Non-Af Amer 38 mL/min >60 [facility] Comment on above: Non- GFR Calc Protein Test strip Ql (U)on 12-07-2022 Protein Ql (U) 15 mg/dl Negative [facility] Serum or plasma albumin marivel urement (mass/volume)on 12-07-2022 Albumin [Mass/Vol] 3.3 g/dL 3.2-5.0 [facility] Serum or plasma calcium marivel urement (mass/volume)on 12-07-2022 Calcium [Mass/Vol] 9.4 mg/dL 8.5-10.1 [facility] Serum or plasma creatinine m easurement (mass/volume)on 12-07-2022 Creatinine [Mass/Vol] 1.48 mg/dL 0.55-1.02 [facility] Comment on above: The validity of the calculated GFR & GFRAA in patients over 70 years has not been determined. Clinical correlation is essential. Serum or plasma urea nitroge n measurement (mass/volume)on 12-07-2022 Urea nitrogen [Mass/Vol] 18 mg/dL 7-18 [facility] Urine blood detectionon RBC Ql (U) Negative Negative [facility] Urine clarityon 12-07-2022 Clarity (U) Clear Clear [facility] Urine color determinationon 12-07-2022 Color (U) Yellow Yellow [facility] Urine creatinine measurement (mass/volume)on 12-07-2022 Creatinine (U) [Mass/Vol] 43.10 mg/dL NO RANGE EST. [facility] Urine glucose detectionon Glucose Ql (U) Normal mg/dl Normal [facility] Urine leukocyte esterase det ection by dipstickon 12-07-2022 Leukocyte esterase Test strip Ql (U) Negative Negative [facility] Urine pHon 12-07-2022 pH (U) 7.0 [pH] 5.0 - 8.0 [facility] Urine protein measurement (m ass/volume)on 12-07-2022 Protein (U) [Mass/Vol] 13.8 mg/dL 0.0-11.8 [facility] Urine protein/creatinine mas s ratioon 12-07-2022 Protein/Creatinine (U) [Mass ratio] 320 mg/g CRE 0-200 [facility] Urine specific gravity measu rementon 12-07-2022 Specific gravity (U) [Rel density] 1.010 1.002-1.030 [facility] Urobilinogen Auto test strip Ql (U)on 12-07-2022 Urobilinogen Ql (U) Normal mg/dl Normal [facility] Albumin Elph [Mass/Vol]Order ed By: Dr. Dozier on 12-01-2022 Albumin [Mass/Vol] 3.5 g/dL 2.9-4.4 [facility] Basophil percentageOrdered B y: Dr. Dozier on 12-01-2022 Chloride [Moles/Vol] 89 mmol/L 98-107 [facility] Glucose [Mass/Vol] 109 mg/dL 74-106 [facility] Comment on above: Fasting Glucose resu lt from 100 to 125 mg/dL suggests IMPAIRED HOMEOSTASIS per A.D.A. criteria. Potassium [Moles/Vol] 3.5 mmol/L 3.5-5.1 [facility] Sodium [Moles/Vol] 125 mmol/L 136-145 [facility] Interpretation of serum or p lasma protein pattern by immunofixation (narrative resultOrdered By: Dr. Dozier on 12-01-2022 Protein Fractions Immunofixation Jamison [Interp] See comment [facility] Comment on above: NOT OBSERVED Iron measurement (mass/mass) Ordered By: Dr. Dozier on 12-01-2022 Iron (Unsp spec) [Mass/Mass] 19 ug/dL 50-170 [facility] Laboratory - Chemistry and C hemistry - challengeOrdered By: Dr. Dozier on 12-01-2022 CO2 [Moles/Vol] 22.0 mmol/L 21.0-32.0 [facility] Urea nitrogen/Creatinine [Mass ratio] 13.1 mg/mg 10-20 [facility] No Panel InformationOrdered By: Dr. Dozier on 12-01-2022 Addendum Document Comment . [facility] Comment on above: Protein electrophore sis scan will follow via computer,mail, or census clerk delivery.Performed at: [address] [id number] Director: Myron Kennedy PhD, Phone: [phone] Estimated GFR (MDRD) Amer 25 mL/min >60 [facility] Comment on above: GFR Calc Estimated GFR (MDRD) Non-Af Amer 21 mL/min >60 [facility] Comment on above: Non- GFR Calc Serum [id number] measu rement by electrophoresisOrdered By: Dr. Dozier on 12-01-2022 Alpha 1 globulin Elph [Mass/Vol] 0.3 g/dL 0.0-0.4 [facility] Alpha 1 globulin Elph [Mass/Vol] 1.1 g/dL 0.4-1.0 [facility] Serum globulin measurement ( mass/volume)Ordered By: Dr. Dozier on 12-01-2022 Globulin (S) [Mass/Vol] 3.5 g/dL 2.2-3.9 [facility] Serum or plasma IgA measurem ent (mass/volume)Ordered By: Dr. Dozier on 12-01-2022 IgA [Mass/Vol] 107 mg/dL 87-352 [facility] Serum or plasma IgG measurem ent (mass/volume)Ordered By: Dr. Dozier on 12-01-2022 IgG [Mass/Vol] 1343 mg/dL 586-1602 [facility] Serum or plasma IgM measurem ent (mass/volume)Ordered By: Dr. Dozier on 12-01-2022 IgM [Mass/Vol] 42 mg/dL 26-217 [facility] Serum or plasma beta globuli n measurement by electrophoresis (mass/volume)Ordered By: Dr. Dozier on 12-01-2022 Beta globulin Elph [Mass/Vol] 1.0 g/dL 0.7-1.3 [facility] Serum or plasma calcitriol m easurement (mass/volume)Ordered By: Dr. Dozier on 12-01-2022 1,25-dihydroxyvitamin D3 [Mass/Vol] 32.2 pg/mL 24.8-81.5 [facility] Comment on above: Performed at: - [address] [id number] Director: Braulio Rubio MD, Phone: [phone] Serum or plasma calcium marivel urement (mass/volume)Ordered By: Dr. Dozier on 12-01-2022 Calcium [Mass/Vol] 8.9 mg/dL 8.5-10.1 [facility] Serum or plasma creatinine m easurement (mass/volume)Ordered By: Dr. Dozier on 12-01-2022 Creatinine [Mass/Vol] 2.51 mg/dL 0.55-1.02 [facility] Comment on above: The validity of the calculated GFR & GFRAA in patients over 70 years has not been determined. Clinical correlation is essential. Serum or plasma ferritin josé miguel surement (mass/volume)Ordered By: Dr. Dozier on 12-01-2022 Ferritin [Mass/Vol] 70 ng/mL 8-252 [facility] Serum or plasma gamma globul in measurement by electrophoresis (mass/volume)Ordered By: Dr. Dozier on 12-01-2022 Gamma globulin Elph [Mass/Vol] 1.2 g/dL 0.4-1.8 [facility] Serum or plasma immunoelectr ophoresis interpretation (nominal result)Ordered By: Dr. Dozier on 12-01-2022 Interpretation IEP [Interp] Comment: . [facility] Comment on above: Presence of monoclon al protein is unclear at this time. Suggestrepeat in 3 to 6 months if clinically indicated. Serum or plasma urea nitroge n measurement (mass/volume)Ordered By: Dr. Dozier on 12-01-2022 Urea nitrogen [Mass/Vol] 33 mg/dL 7-18 [facility] Thin prep Papanicolaou smear with manual screeningOrdered By: Dr. Dozier on 12-01-2022 Thin prep Papanicolaou smear with manual screening 14 5-15 [facility] Thin prep Papanicolaou smear with manual screening 1.1 0.7-1.7 [facility] Total protein bloodOrdered B y: Dr. Dozier on 12-01-2022 Protein [Mass/Vol] 7.0 g/dL 6.0-8.5 [facility] Absolute lymphocyte countOrd ered By: Dr. Dozier on 10-06-2022 Lymphocytes Auto (Unsp spec) [#/Vol] 2.62 10*3/uL 0.83-4.51 [facility] Basophil percentageOrdered B y: Dr. Dozier on 10-06-2022 Basophils/100 WBC (Bld) 0.9 % 0-1 [facility] Bilirubin [Mass/Vol] 0.20 mg/dL 0.20-1.00 [facility] Comment on above: For patients on eltr ombopag therapy, use of Dimension [place] TBIL is not recommended. Chloride [Moles/Vol] 101 mmol/L 98-107 [facility] Eosinophils/100 WBC (Bld) 2.2 % 0-5 [facility] Glucose [Mass/Vol] 96 mg/dL 74-106 [facility] Neutrophils (Bld) [#/Vol] 7.5 10*3/uL 2.0-7.7 [facility] Neutrophils/100 WBC (Bld) 66.2 % 47-70 [facility] Potassium [Moles/Vol] 5.4 mmol/L 3.5-5.1 [facility] Protein [Mass/Vol] 8.2 g/dL 6.4-8.2 [facility] Sodium [Moles/Vol] 135 mmol/L 136-145 [facility] WBC (Bld) [#/Vol] 11.3 10*3/uL 4.4-11.0 [facility] Blood erythrocytes count (nu mber/volume)Ordered By: Dr. Dozier on 10-06-2022 RBC (Bld) [#/Vol] 4.86 10*6/uL 4.2-5.4 [facility] Blood hemoglobin measurement (mass/volume)Ordered By: Dr. Dozier on 10-06-2022 Hemoglobin (Bld) [Mass/Vol] 11.5 g/dL 12.0-15.0 [facility] Blood lymphocytes/100 leukoc ytesOrdered By: Dr. Dozier on 10-06-2022 Lymphocytes/100 WBC (Bld) 23.2 % 19-41 [facility] Blood monocytes/100 leukocyt esOrdered By: Dr. Dozier on 10-06-2022 Monocytes/100 WBC (Bld) 7.3 % 0-10 [facility] Blood platelet mean volumeOr dered By: Dr. Dozier on 10-06-2022 Platelet mean volume (Bld) [Entitic vol] 10.6 fL 6.2-12.0 [facility] Determination of erythrocyte mean corpuscular volume (MCV)Ordered By: Dr. Dozier on 10-06-2022 MCV (RBC) [Entitic vol] 79.8 fL 81-99 [facility] Hematocrit Auto (Bld) [Volum e fraction]Ordered By: Dr. Dozier on 10-06-2022 Hematocrit (Bld) [Volume fraction] 38.8 % 37-47 [facility] Laboratory - Chemistry and C hemistry - challengeOrdered By: Dr. Dozier on 10-06-2022 ALP [Catalytic activity/Vol] 84 U/L 45-117 [facility] ALT [Catalytic activity/Vol] 25 U/L 13-56 [facility] CO2 [Moles/Vol] 25.0 mmol/L 21.0-32.0 [facility] Globulin (S) [Mass/Vol] 4.3 g/dL 2.2-4.2 [facility] Urea nitrogen/Creatinine [Mass ratio] 11.6 mg/mg 10-20 [facility] Laboratory - Hematology and Cell countsOrdered By: Dr. Dozier on 10-06-2022 Erythrocyte distribution width (RBC) [Entitic vol] 48.3 fL 35.1-43.9 [facility] Erythrocyte distribution width (RBC) [Ratio] 16.7 % 11.6-14.6 [facility] Immature granulocytes/100 WBC (Bld) 0.200 % 0.0-0.9 [facility] Comment on above: IG% - Immature Granu locytes (promyelocytes, myelocytes and metamyelocytes) > 1% indicates that a LEFT SHIFT is Present. MCH (RBC) [Entitic mass] 23.7 pg 27.0-32.0 [facility] Nucleated RBC/100 WBC (Bld) [Ratio] 0 % 0-5 [facility] Auto (RBC) [Mass/Vol]Or dered By: Dr. Dozier on 10-06-2022 MCHC (RBC) [Mass/Vol] 29.6 g/dL 32-36 [facility] No Panel InformationOrdered By: Dr. Dozier on 10-06-2022 Estimated GFR (MDRD) Amer 34 mL/min >60 [facility] Comment on above: GFR Calc Estimated GFR (MDRD) Non-Af Amer 28 mL/min >60 [facility] Comment on above: Non- GFR Calc Free Lambda Light Chains, Quant 41.7 mg/L 5.7-26.3 [facility] Thyroid Stimulating Hormone (TSH) 0.42 uIU/mL 0.358-3.74 [facility] Vitamin B12 Level > 2000 pg/mL 211-911 [facility] Whole Blood Vitamin B1 Level 146.3 nmol/L 66.5-200.0 [facility] Comment on above: Performed at: [email or web address] [address] [id number] Director: Myron Kennedy PhD, Phone: [phone] at: - [facility] [id number] Director: Braluio Rubio MD, Phone: [phone] Platelets bldOrdered By: Dr. Dozier on 10-06-2022 Platelets (Bld) [#/Vol] 513 10*3/uL 150-450 [facility] Serum immunoglobulin kappa l ight chains/immunoglobulin lambda light chains mass ratioOrdered By: Dr. Dozier on 10-06-2022 Immunoglobulin light chains.kappa/Immunoglob ulin light chains.lambda (S) [Mass ratio] 1.34 0.26-1.65 [facility] Serum or plasma albumin marivel urement (mass/volume)Ordered By: Dr. Dozier on 10-06-2022 Albumin [Mass/Vol] 3.9 g/dL 3.2-5.0 [facility] Serum or plasma albumin/glob ulin mass ratioOrdered By: Dr. Dozier on 10-06-2022 Albumin/Globulin [Mass ratio] 0.9 {ratio} 0.9-2.4 [facility] Serum or plasma calcium marivel urement (mass/volume)Ordered By: Dr. Dozier on 10-06-2022 Calcium [Mass/Vol] 9.4 mg/dL 8.5-10.1 [facility] Serum or plasma creatinine m easurement (mass/volume)Ordered By: Dr. Dozier on 10-06-2022 Creatinine [Mass/Vol] 1.90 mg/dL 0.55-1.02 [facility] Comment on above: The validity of the calculated GFR & GFRAA in patients over 70 years has not been determined. Clinical correlation is essential. Serum or plasma folate measu rement (mass/volume)Ordered By: Dr. Dozier on 10-06-2022 Folate [Mass/Vol] 6.60 ng/mL 3.1-55.4 [facility] Serum or plasma immunoglobul in kappa light chains measurement (mass/volume)Ordered By: Dr. Dozier on 10-06-2022 Immunoglobulin light chains.kappa [Mass/Vol] 55.8 mg/L 3.3-19.4 [facility] Serum or plasma urea nitroge n measurement (mass/volume)Ordered By: Dr. Dozier on 10-06-2022 Urea nitrogen [Mass/Vol] 22 mg/dL 7-18 [facility] Thin prep Papanicolaou smear with manual screeningOrdered By: Dr. Dozier on 10-06-2022 Thin prep Papanicolaou smear with manual screening 16 U/L 15-37 [facility] Thin prep Papanicolaou smear with manual screening 9 5-15 [facility] Comprehensive metabolic 2000 panelon 07-08-2022 Albumin [Mass/Vol] 3.8 g/dL 3.2 - 5.2 g/dL [facility] ALP [Catalytic activity/Vol] 108 U/L 40 - 150 U/L [facility] ALT [Catalytic activity/Vol] 34 U/L 14 - 65 U/L [facility] Anion gap [Moles/Vol] 13 mmol/L 10 - 2 0 mmol/L [facility] AST [Catalytic activity/Vol] 28 U/L 0 - 45 U/L [facility] Bilirubin [Mass/Vol] 0.2 mg/dL 0 - 1.3 mg/dL [facility] Calcium [Mass/Vol] 8.7 mg/dL 8.4 - 10. 2 mg/dL [facility] Chloride [Moles/Vol] 99 mmol/L 98 - 10 8 mmol/L [facility] Creatinine [Mass/Vol] 1.93 mg/dL High 0.60 - 1.20 mg/dL [facility] GFR/1.73 sq M.predicted CKD-EPI (S/P/Bld) [Vol rate/Area] 29 Low - PINF [facility] Comment on above: Estimated GFR was ca lculated using the 2020 CKD-EPI creatinine equation. Glucose [Mass/Vol] 110 mg/dL High 65 - 99 mg/dL [facility] HCO3 [Moles/Vol] 27 mmol/L 21 - 32 mmol/L [facility] Potassium [Moles/Vol] 5.2 mmol/L High 3.5 - 5.1 mmol/L [facility] Protein [Mass/Vol] 7.8 g/dL 6 - 8 g/dL [facility] Sodium [Moles/Vol] 134 mmol/L Low 135 - 145 mmol/L [facility] Urea nitrogen [Mass/Vol] 27 mg/dL High 8 - 25 mg/dL [facility] Urea nitrogen/Creatinine [Mass ratio] 14.0 mg/mg 10 - 20 [facility] has implemented the eGFR calculation approach that does not have a coefficient for race that conforms to the NKF-ASN Task Force Recommendations. [facility] NT Pro BNPon 07-08-2022 Natriuretic peptide.B prohormone N-Terminal [Mass/Vol] 369 pg/mL High 0 - 300 pg/mL [facility] Natriuretic peptide.B prohor curly N-Terminal [Mass/Vol]on 07-08-2022 Pride Study Cut-offs Rule In: < /= 50 Years >450 pg/mL 51 Years - 75 Years >900 pg/mL 76 Years - 99 Years >1800 pg/mL Rule Out: All patients <300 pg/mL [facility] No Panel Informationon 07-08 Interpretation and review of laboratory results Abnormal [facility] CBC Auto Differentialon 06-07 Basophils (Bld) [#/Vol] 0.09 10*3/uL [facility] Basophils/100 WBC (Bld) 0.8 % [facility] Eosinophils (Bld) [#/Vol] 0.46 10*3/uL [facility] Eosinophils/100 WBC (Bld) 4.1 % [facility] Erythrocyte distribution width (RBC) [Entitic vol] 16.0 % High 11.6 - 14.8 % [facility] Hematocrit (Bld) [Volume fraction] 31.2 % Low 36 - 46 % [facility] Hemoglobin (Bld) [Mass/Vol] 9.1 g/dL Low 12 - 16 g/dL [facility] Immature granulocytes (Bld) [#/Vol] 0.24 10*3/uL [facility] Immature granulocytes/100 WBC (Bld) 2.10 % [facility] Comment on above: The IG parameter is the percentage of metamyelocytes, myelocytes and promyelocytes. An immature granulocyte count (IG) of 1% or more suggests the possibility of infection, an IG count of 3% is very likely related to an infection. Interpretation and review of laboratory results Abnormal [facility] Lymphocytes (Bld) [#/Vol] 2.12 10*3/uL [facility] Lymphocytes/100 WBC (Bld) 18.8 % [facility] MCH (RBC) [Entitic mass] 24.3 pg Low 26 - 34 pg [facility] MCHC (RBC) [Mass/Vol] 29.2 g/dL Low 31 - 37 g/dL [facility] MCV (RBC) [Entitic vol] 83.2 fL 80 - 100 fL [facility] Monocytes (Bld) [#/Vol] 1.08 10*3/uL High [facility] Monocytes/100 WBC (Bld) 9.6 % [facility] Neutrophils (Bld) [#/Vol] 7.26 10*3/uL High [facility] Neutrophils/100 WBC (Bld) 64.6 % [facility] Nucleated RBC (Bld) [#/Vol] 0.00 10*3/uL [facility] Nucleated RBC/100 WBC (Bld) [Ratio] 0.0 % [facility] Platelet mean volume (Bld) [Entitic vol] 9.9 fL 9.4 - 12.4 fL [facility] Platelets (Bld) [#/Vol] 423 10*3/uL High [facility] RBC (Bld) [#/Vol] 3.75 10*6/uL Low [facility]alth WBC (Bld) [#/Vol] 11.25 10*3/uL High [facility] CK [Catalytic activity/Vol]o n 06-29-2022 Interpretation and review of laboratory results Abnormal [facility] CPK NO MBon 06-29-2022 CK [Catalytic activity/Vol] 698 U/L High 40 - 170 U/L [facility] Glucose (Bld) [Mass/Vol]on 0 06-29-2022 Glucose [Mass/Vol] 94 mg/dL 65 - 99 mg/dL [facility] Interpretation and review of laboratory results Normal [facility] Magnesium Levelon 06-29-2022 Magnesium [Mass/Vol] 1.8 mg/dL 1.6 - 2 .4 mg/dL [facility] Magnesium [Mass/Vol]on 06-29 Interpretation and review of laboratory results Normal [facility] Renal function 2000 panelon 06-29-2022 Albumin [Mass/Vol] 2.9 g/dL Low 3.2 - 5.2 g/dL [facility] Anion gap [Moles/Vol] 13 mmol/L 10 - 2 0 mmol/L [facility] Calcium [Mass/Vol] 8.0 mg/dL Low 8.4 - 10. 2 mg/dL [facility] Chloride [Moles/Vol] 106 mmol/L 98 - 10 8 mmol/L [facility] Creatinine [Mass/Vol] 1.85 mg/dL High 0.60 - 1.20 mg/dL [facility] GFR/1.73 sq M.predicted CKD-EPI (S/P/Bld) [Vol rate/Area] 30 Low - PINF [facility] Comment on above: Estimated GFR was ca lculated using the 2020 CKD-EPI creatinine equation. Glucose [Mass/Vol] 91 mg/dL 65 - 99 mg/dL [facility] HCO3 [Moles/Vol] 25 mmol/L 21 - 32 mmol/L [facility] Interpretation and review of laboratory results Abnormal [facility] Phosphate [Mass/Vol] 5.4 mg/dL High 2.8 - 4 .1 mg/dL [facility] Potassium [Moles/Vol] 5.1 mmol/L 3.5 - 5.1 mmol/L [facility] Sodium [Moles/Vol] 139 mmol/L 135 - 145 mmol/L [facility] Urea nitrogen [Mass/Vol] 26 mg/dL High 8 - 25 mg/dL [facility] Urea nitrogen/Creatinine [Mass ratio] 14.1 mg/mg 10 - 20 [facility] has implemented the eGFR calculation approach that does not have a coefficient for race that conforms to the NKF-ASN Task Force Recommendations. [facility] CBC Auto Differentialon 06-07 Basophils (Bld) [#/Vol] 0.06 10*3/uL [facility] Basophils/100 WBC (Bld) 0.5 % [facility] Eosinophils (Bld) [#/Vol] 0.09 10*3/uL [facility] Eosinophils/100 WBC (Bld) 0.8 % [facility] Erythrocyte distribution width (RBC) [Entitic vol] 15.9 % High 11.6 - 14.8 % [facility] Hematocrit (Bld) [Volume fraction] 29.0 % Low 36 - 46 % [facility] Hemoglobin (Bld) [Mass/Vol] 8.9 g/dL Low 12 - 16 g/dL [facility] Immature granulocytes (Bld) [#/Vol] 0.31 10*3/uL High [facility] Immature granulocytes/100 WBC (Bld) 2.60 % [facility] Comment on above: The IG parameter is the percentage of metamyelocytes, myelocytes and promyelocytes. An immature granulocyte count (IG) of 1% or more suggests the possibility of infection, an IG count of 3% is very likely related to an infection. Interpretation and review of laboratory results Abnormal [facility] Lymphocytes (Bld) [#/Vol] 1.98 10*3/uL [facility] Lymphocytes/100 WBC (Bld) 16.8 % [facility] MCH (RBC) [Entitic mass] 24.5 pg Low 26 - 34 pg [facility] MCHC (RBC) [Mass/Vol] 30.7 g/dL Low 31 - 37 g/dL [facility] MCV (RBC) [Entitic vol] 79.9 fL Low 80 - 100 fL [facility] Monocytes (Bld) [#/Vol] 0.99 10*3/uL High [facility] Monocytes/100 WBC (Bld) 8.4 % [facility] Neutrophils (Bld) [#/Vol] 8.39 10*3/uL High [facility] Neutrophils/100 WBC (Bld) 70.9 % [facility] Nucleated RBC (Bld) [#/Vol] 0.00 10*3/uL [facility] Nucleated RBC/100 WBC (Bld) [Ratio] 0.0 % [facility] Platelet mean volume (Bld) [Entitic vol] 9.3 fL Low 9.4 - 12.4 fL [facility] Platelets (Bld) [#/Vol] 406 10*3/uL High [facility] RBC (Bld) [#/Vol] 3.63 10*6/uL Low [facility]alth WBC (Bld) [#/Vol] 11.82 10*3/uL High [facility] CK [Catalytic activity/Vol]o n 06-28-2022 Interpretation and review of laboratory results Abnormal [facility] CPK NO MBon 06-28-2022 CK [Catalytic activity/Vol] 1164 U/L High 40 - 170 U/L [facility] Glucose (Bld) [Mass/Vol]on 0 06-28-2022 Glucose [Mass/Vol] 118 mg/dL High 65 - 99 mg/dL [facility] Interpretation and review of laboratory results Abnormal [facility] Glucose [Mass/Vol] 99 mg/dL 65 - 99 mg/dL [facility] Interpretation and review of laboratory results Normal [facility] Glucose [Mass/Vol] 82 mg/dL 65 - 99 mg/dL [facility] Interpretation and review of laboratory results Normal [facility] Glucose [Mass/Vol] 83 mg/dL 65 - 99 mg/dL [facility] Interpretation and review of laboratory results Normal [facility] Hepatic function 2000 panelo n 06-28-2022 Albumin [Mass/Vol] 2.8 g/dL Low 3.2 - 5.2 g/dL [facility] ALP [Catalytic activity/Vol] 82 U/L 40 - 150 U/L [facility] ALT [Catalytic activity/Vol] 97 U/L High 14 - 65 U/L [facility] AST [Catalytic activity/Vol] 64 U/L High 0 - 45 U/L [facility] Bilirubin [Mass/Vol] 0.2 mg/dL 0 - 1.3 mg/dL [facility] Bilirubin.conjugated [Mass/Vol] mg/dL 0 - 0.4 mg/dL [facility] Interpretation and review of laboratory results Abnormal [facility] Protein [Mass/Vol] 6.1 g/dL 6 - 8 g/dL [facility] Iron Study with Ferritinon 0 06-28-2022 Ferritin [Mass/Vol] 46 ng/mL 13 - 150 ng/mL [facility] Interpretation and review of laboratory results Abnormal [facility] Iron [Mass/Vol] 40 ug/dL [facility] Iron binding capacity [Mass/Vol] 255 [facility] Iron saturation [Mass fraction] 16 % Low 20 - 50 % [facility] Lipaseon 06-28-2022 Lipase [Catalytic activity/Vol] 228 U/L 73 - 393 U/L [facility] Lipase [Catalytic activity/V ol]on 06-28-2022 Interpretation and review of laboratory results Normal [facility] Magnesium Levelon 06-28-2022 Magnesium [Mass/Vol] 1.4 mg/dL Low 1.6 - 2 .4 mg/dL [facility] Magnesium [Mass/Vol]on 06-28 Interpretation and review of laboratory results Abnormal [facility] Renal function 2000 panelon 06-28-2022 Albumin [Mass/Vol] 2.9 g/dL Low 3.2 - 5.2 g/dL [facility] Anion gap [Moles/Vol] 12 mmol/L 10 - 2 0 mmol/L [facility] Calcium [Mass/Vol] 8.0 mg/dL Low 8.4 - 10. 2 mg/dL [facility] Chloride [Moles/Vol] 104 mmol/L 98 - 10 8 mmol/L [facility] Creatinine [Mass/Vol] 1.85 mg/dL High 0.60 - 1.20 mg/dL [facility] GFR/1.73 sq M.predicted CKD-EPI (S/P/Bld) [Vol rate/Area] 30 Low - PINF [facility] Comment on above: Estimated GFR was ca lculated using the 2020 CKD-EPI creatinine equation. Glucose [Mass/Vol] 92 mg/dL 65 - 99 mg/dL [facility] HCO3 [Moles/Vol] 27 mmol/L 21 - 32 mmol/L [facility] Interpretation and review of laboratory results Abnormal [facility] Phosphate [Mass/Vol] 5.2 mg/dL High 2.8 - 4 .1 mg/dL [facility] Potassium [Moles/Vol] 4.7 mmol/L 3.5 - 5.1 mmol/L [facility] Sodium [Moles/Vol] 138 mmol/L 135 - 145 mmol/L [facility] Urea nitrogen [Mass/Vol] 29 mg/dL High 8 - 25 mg/dL [facility] Urea nitrogen/Creatinine [Mass ratio] 15.7 mg/mg 10 - 20 [facility] has implemented the eGFR calculation approach that does not have a coefficient for race that conforms to the NKF-ASN Task Force Recommendations. [facility] Tissue Transglutaminase, IgA on 06-28-2022 Interpretation and review of laboratory results Normal [facility] Tissue Transglutaminase, IgA [facility] Comment on above: Reference Ranges: <20 CU Negative 20-30 CU Weak Positive >30 CU Positive The following results were obtained with the [employer] h-tTG IgA chemiluminescent immunoassay. Values obtained with different manufacturers' assay methods may not be used interchangeably. [facility] CBC Auto Differentialon 06-07 Basophils (Bld) [#/Vol] 0.04 10*3/uL [facility] Basophils/100 WBC (Bld) 0.3 % [facility] Eosinophils (Bld) [#/Vol] 0.01 10*3/uL [facility] Eosinophils/100 WBC (Bld) 0.1 % [facility] Erythrocyte distribution width (RBC) [Entitic vol] 15.8 % High 11.6 - 14.8 % [facility] Hematocrit (Bld) [Volume fraction] 29.5 % Low 36 - 46 % [facility] Hemoglobin (Bld) [Mass/Vol] 9.0 g/dL Low 12 - 16 g/dL [facility] Immature granulocytes (Bld) [#/Vol] 0.17 10*3/uL [facility] Immature granulocytes/100 WBC (Bld) 1.30 % [facility] Comment on above: The IG parameter is the percentage of metamyelocytes, myelocytes and promyelocytes. An immature granulocyte count (IG) of 1% or more suggests the possibility of infection, an IG count of 3% is very likely related to an infection. Interpretation and review of laboratory results Abnormal [facility] Lymphocytes (Bld) [#/Vol] 1.07 10*3/uL [facility] Lymphocytes/100 WBC (Bld) 8.3 % [facility] MCH (RBC) [Entitic mass] 24.1 pg Low 26 - 34 pg [facility] MCHC (RBC) [Mass/Vol] 30.5 g/dL Low 31 - 37 g/dL [facility] MCV (RBC) [Entitic vol] 79.1 fL Low 80 - 100 fL [facility] Monocytes (Bld) [#/Vol] 0.94 10*3/uL High [facility] Monocytes/100 WBC (Bld) 7.3 % [facility] Neut[facility] (Bld) [#/Vol] 10.63 10*3/uL High [facility] Neutrophils/100 WBC (Bld) 82.7 % [facility] Nucleated RBC (Bld) [#/Vol] 0.00 10*3/uL [facility] Nucleated RBC/100 WBC (Bld) [Ratio] 0.0 % [facility] Platelet mean volume (Bld) [Entitic vol] 9.7 fL 9.4 - 12.4 fL [facility] Platelets (Bld) [#/Vol] 379 10*3/uL [facility] RBC (Bld) [#/Vol] 3.73 10*6/uL Low [facility] ealt WBC (Bld) [#/Vol] 12.86 10*3/uL [facility] CK [Catalytic activity/Vol]o n 06-27-2022 Interpretation and review of laboratory results Abnormal [facility] CPK NO MBon 06-27-2022 CK [Catalytic activity/Vol] 918 U/L High 40 - 170 U/L [facility] Glucose (Bld) [Mass/Vol]on 0 06-27-2022 Glucose [Mass/Vol] 126 mg/dL High 65 - 99 mg/dL [facility] Interpretation and review of laboratory results Abnormal [facility] Glucose [Mass/Vol] 162 mg/dL High 65 - 99 [facility] Interpretation and review of laboratory results Abnormal [facility] Glucose [Mass/Vol] 112 mg/dL High 65 - 99 mg/dL [facility] Interpretation and review of laboratory results Abnormal [facility] Magnesium Levelon 06-27-2022 Magnesium [Mass/Vol] 1.6 mg/dL 1.6 - 2 .4 mg/dL [facility] Magnesium [Mass/Vol]on 06-27 Interpretation and review of laboratory results Normal [facility] Renal function 2000 panelon 06-27-2022 Albumin [Mass/Vol] 3.0 g/dL Low 3.2 - 5.2 g/dL [facility] Anion gap [Moles/Vol] 11 mmol/L 10 - 2 0 mmol/L [facility] Calcium [Mass/Vol] 8.6 mg/dL 8.4 - 10. 2 mg/dL [facility] Chloride [Moles/Vol] 101 mmol/L 98 - 10 8 mmol/L [facility] Creatinine [Mass/Vol] 1.85 mg/dL High 0.60 - 1.20 mg/dL [facility] GFR/1.73 sq M.predicted CKD-EPI (S/P/Bld) [Vol rate/Area] 30 Low - PINF [facility] Comment on above: Estimated GFR was ca lculated using the 2020 CKD-EPI creatinine equation. Glucose [Mass/Vol] 104 mg/dL High 65 - 99 mg/dL [facility] HCO3 [Moles/Vol] 27 mmol/L 21 - 32 mmol/L [facility] Interpretation and review of laboratory results Abnormal [facility] Phosphate [Mass/Vol] 3.7 mg/dL 2.8 - 4 .1 mg/dL [facility] Potassium [Moles/Vol] 4.4 mmol/L 3.5 - 5.1 mmol/L [facility] Sodium [Moles/Vol] 135 mmol/L 135 - 145 mmol/L [facility] Urea nitrogen [Mass/Vol] 28 mg/dL High 8 - 25 mg/dL [facility] Urea nitrogen/Creatinine [Mass ratio] 15.1 mg/mg 10 - 20 [facility] has implemented the eGFR calculation approach that does not have a coefficient for race that conforms to the NKF-ASN Task Force Recommendations. [facility] Bacteria identified Cx Nom ( Bld)on 06-26-2022 Interpretation and review of laboratory results Normal [facility] CBC Auto Differentialon 06-07 Basophils (Bld) [#/Vol] 0.06 10*3/uL [facility] Basophils/100 WBC (Bld) 0.6 % [facility] Eosinophils (Bld) [#/Vol] 0.24 10*3/uL [facility] Eosinophils/100 WBC (Bld) 2.4 % [facility] Erythrocyte distribution width (RBC) [Entitic vol] 15.8 % High 11.6 - 14.8 % [facility] Hematocrit (Bld) [Volume fraction] 31.1 % Low 36 - 46 % [facility] Hemoglobin (Bld) [Mass/Vol] 9.6 g/dL Low 12 - 16 g/dL [facility] Immature granulocytes (Bld) [#/Vol] 0.11 10*3/uL [facility] Immature granulocytes/100 WBC (Bld) 1.10 % [facility] Comment on above: The IG parameter is the percentage of metamyelocytes, myelocytes and promyelocytes. An immature granulocyte count (IG) of 1% or more suggests the possibility of infection, an IG count of 3% is very likely related to an infection. Interpretation and review of laboratory results Abnormal [facility] Lymphocytes (Bld) [#/Vol] 1.22 10*3/uL [facility] Lymphocytes/100 WBC (Bld) 12.2 % [facility] MCH (RBC) [Entitic mass] 24.6 pg Low 26 - 34 pg [facility] MCHC (RBC) [Mass/Vol] 30.9 g/dL Low 31 - 37 g/dL [facility] MCV (RBC) [Entitic vol] 79.7 fL Low 80 - 100 fL [facility] Monocytes (Bld) [#/Vol] 0.84 10*3/uL [facility] Monocytes/100 WBC (Bld) 8.4 % [facility] Neutrophils (Bld) [#/Vol] 7.57 10*3/uL High [facility] Neutrophils/100 WBC (Bld) 75.3 % [facility] Nucleated RBC (Bld) [#/Vol] 0.00 10*3/uL [facility] Nucleated RBC/100 WBC (Bld) [Ratio] 0.0 % [facility] Platelet mean volume (Bld) [Entitic vol] 9.8 fL 9.4 - 12.4 fL [facility] Platelets (Bld) [#/Vol] 400 10*3/uL [facility] RBC (Bld) [#/Vol] 3.90 10*6/uL Low [facility] (Bld[facility] [#/Vol] 9.89 10*3/uL [facility] CK [Catalytic activity/Vol]o n 06-26-2022 Interpretation and review of laboratory results Abnormal [facility] CPK NO MBon 06-26-2022 CK [Catalytic activity/Vol] 1703 U/L High 40 - 170 U/L [facility] Glucose (Bld) [Mass/Vol]on 0 06-26-2022 Glucose [Mass/Vol] 225 mg/dL High 65 - 99 mg/dL [facility] Interpretation and review of laboratory results Abnormal [facility] Glucose [Mass/Vol] 134 mg/dL High 65 - 99 mg/dL [facility] Interpretation and review of laboratory results Abnormal [facility] Glucose [Mass/Vol] 121 mg/dL High 65 - 99 mg/dL [facility] Interpretation and review of laboratory results Abnormal [facility] Glucose [Mass/Vol] 109 mg/dL High 65 - 99 mg/dL [facility] Interpretation and review of laboratory results Abnormal [facility] Laboratory - Microbiology an d Antimicrobial susceptibilityon 06-26-2022 Bacteria identified Cx Nom (Bld) [facility]22 Magnesium [Mass/Vol] 1.6 mg/dL 1.6 - 2 .4 mg/dL [facility] Magnesium [Mass/Vol]on 06-26 Interpretation and review of laboratory results Normal [facility] Renal function 2000 panelon 06-26-2022 Albumin [Mass/Vol] 3.0 g/dL Low 3.2 - 5.2 g/dL [facility] Anion gap [Moles/Vol] 13 mmol/L 10 - 2 0 mmol/L [facility] Calcium [Mass/Vol] 8.6 mg/dL 8.4 - 10. 2 mg/dL [facility] Chloride [Moles/Vol] 102 mmol/L 98 - 10 8 mmol/L [facility] Creatinine [Mass/Vol] 1.87 mg/dL High 0.60 - 1.20 mg/dL [facility] GFR/1.73 sq M.predicted CKD-EPI (S/P/Bld) [Vol rate/Area] 30 Low - PINF [facility] Comment on above: Estimated GFR was ca lculated using the 2020 CKD-EPI creatinine equation. Glucose [Mass/Vol] 105 mg/dL High 65 - 99 mg/dL [facility] HCO3 [Moles/Vol] 26 mmol/L 21 - 32 mmol/L [facility] Interpretation and review of laboratory results Abnormal [facility] Phosphate [Mass/Vol] 4.5 mg/dL High 2.8 - 4 .1 mg/dL [facility] Potassium [Moles/Vol] 4.6 mmol/L 3.5 - 5.1 mmol/L [facility] Sodium [Moles/Vol] 136 mmol/L 135 - 145 mmol/L [facility] Urea nitrogen [Mass/Vol] 23 mg/dL 8 - 25 mg/dL [facility] Urea nitrogen/Creatinine [Mass ratio] 12.3 mg/mg [facility] has implemented the eGFR calculation approach that does not have a coefficient for race that conforms to the NKF-ASN Task Force Recommendations. [facility] XR Chest 1 Viewon 06-26-2022 No acute cardiopulmonary abnormality. [facility]/ Workstation ID: [id number] [employer] EXAMINATION: XR CHEST PA/AP 06/25/2022 1:41 pm [...] abdomen are unremarkable. No acute osseous abnormalities. [employer] Huy Dial M D - 06/26/2022 EXAMINATION: [...] acute cardiopulmonary abnormality. [facility]/ Workstation ID: [id number] [facility] XR Chest 1 ViewOrdered By: Virgil Dial on 06-26-2022 [facility] Work Phone: CBC Auto Differentialon 06-07 Basophils (Bld) [#/Vol] 0.05 10*3/uL [facility] Basophils/100 WBC (Bld) 0.6 % [facility] Eosinophils (Bld) [#/Vol] 0.18 10*3/uL [facility] Eosinophils/100 WBC (Bld) 2.3 % [facility] Erythrocyte distribution width (RBC) [Entitic vol] 15.5 % High 11.6 - 14.8 % [facility] Hematocrit (Bld) [Volume fraction] 28.6 % Low 36 - 46 % [facility] Hemoglobin (Bld) [Mass/Vol] 8.6 g/dL Low 12 - 16 g/dL [facility] Immature granulocytes (Bld) [#/Vol] 0.04 10*3/uL [facility] Immature granulocytes/100 WBC (Bld) 0.50 % [facility] Comment on above: The IG parameter is the percentage of metamyelocytes, myelocytes and promyelocytes. An immature granulocyte count (IG) of 1% or more suggests the possibility of infection, an IG count of 3% is very likely related to an infection. Interpretation and review of laboratory results Abnormal [facility] Lymphocytes (Bld) [#/Vol] 0.99 10*3/uL [facility] Lymphocytes/100 WBC (Bld) 12.7 % [facility] MCH (RBC) [Entitic mass] 24.3 pg Low 26 - 34 pg [facility] MCHC (RBC) [Mass/Vol] 30.1 g/dL Low 31 - 37 g/dL [facility] MCV (RBC) [Entitic vol] 80.8 fL 80 - 100 fL [facility] Monocytes (Bld) [#/Vol] 0.57 10*3/uL [facility] Monocytes/100 WBC (Bld) 7.3 % [facility] Neutrophils (Bld) [#/Vol] 5.94 10*3/uL [facility] Neutrophils/100 WBC (Bld) 76.6 % [facility] Nucleated RBC (Bld) [#/Vol] 0.00 10*3/uL [facility] Nucleated RBC/100 WBC (Bld) [Ratio] 0.0 % [facility] Platelet mean volume (Bld) [Entitic vol] 9.4 fL 9.4 - 12.4 fL [facility] Platelets (Bld) [#/Vol] 279 10*3/uL [facility] RBC (Bld) [#/Vol] 3.54 10*6/uL Low [facility] ealt WBC (Bld) [#/Vol] 7.77 10*3/uL [facility] CK [Catalytic activity/Vol]o n 06-25-2022 Interpretation and review of laboratory results Abnormal [facility] COVID-19, MolecularOrdered B y: Katina Cortés on 06-25-2022 SARS-CoV-2 (COVID-19) RNA CATRINA+probe Ql (Resp) Not detected Not Detected [facility] th CPK NO MBon 06-25-2022 CK [Catalytic activity/Vol] 4769 U/L High 40 - 170 U/L [facility] ECG 12 Leadon 06-25-2022 Atrial Rate 85 BPM [facility] P Fowler 75 degrees [facility] P-R Interval 152 ms [facility] Q-T Interval 356 ms [facility] QRS Duration 88 ms [facility] QTC Calculation (Bezet) 423 ms [facility] Fowler 37 degrees [facility] T Fowler 52 degrees [facility] Ventricular Rate 85 BPM [facility] Normal sinus rhythm Normal ECG Confirmed by Jean-Pierre Middleton MD ([id number]) on 06/25/2022 12:32:18 PM MUSE [facility] Glucose (Bld) [Mass/Vol]on 0 06-25-2022 Glucose [Mass/Vol] 119 mg/dL High 65 - 99 mg/dL [facility] Interpretation and review of laboratory results Abnormal [facility] Glucose [Mass/Vol] 98 mg/dL 65 - 99 mg/dL [facility] Interpretation and review of laboratory results Normal [facility] Glucose [Mass/Vol] 119 mg/dL High 65 - 99 mg/dL [facility] Interpretation and review of laboratory results Abnormal [facility] Glucose [Mass/Vol] 107 mg/dL High 65 - 99 mg/dL [facility] Interpretation and review of laboratory results Abnormal [facility] Magnesium Levelon 06-25-2022 Magnesium [Mass/Vol] 1.5 mg/dL Low 1.6 - 2 .4 mg/dL [facility] No Panel Informationon 06-25 Interpretation and review of laboratory results Abnormal [facility] Renal function 2000 panelon 06-25-2022 Albumin [Mass/Vol] 2.7 g/dL Low 3.2 - 5.2 g/dL [facility] Anion gap [Moles/Vol] 15 mmol/L 10 - 2 0 mmol/L [facility] Calcium [Mass/Vol] 8.6 mg/dL 8.4 - 10. 2 mg/dL [facility] Chloride [Moles/Vol] 106 mmol/L 98 - 10 8 mmol/L [facility] Creatinine [Mass/Vol] 2.05 mg/dL High 0.60 - 1.20 mg/dL [facility] GFR/1.73 sq M.predicted CKD-EPI (S/P/Bld) [Vol rate/Area] 27 Low - PINF [facility] Comment on above: Estimated GFR was ca lculated using the 2020 CKD-EPI creatinine equation. Glucose [Mass/Vol] 94 mg/dL 65 - 99 mg/dL [facility] HCO3 [Moles/Vol] 23 mmol/L 21 - 32 mmol/L [facility] Phosphate [Mass/Vol] 4.4 mg/dL High 2.8 - 4 .1 mg/dL [facility] Potassium [Moles/Vol] 5.1 mmol/L 3.5 - 5.1 mmol/L [facility] Sodium [Moles/Vol] 139 mmol/L 135 - 145 mmol/L [facility] Urea nitrogen [Mass/Vol] 28 mg/dL High 8 - 25 mg/dL [facility] Urea nitrogen/Creatinine [Mass ratio] 13.7 mg/mg 10 - 20 [facility] has implemented the eGFR calculation approach that does not have a coefficient for race that conforms to the NKF-ASN Task Force Recommendations. [facility] SARS-CoV-2 (COVID-19) RNA NA A+probe Ql (Resp)Ordered By: Katina Cortés on 06-25-2022 Interpretation and review of laboratory results Normal [facility] This test was perfor med under [...] the following links: For Healthcare Providers: https://www.fda.gov/med ia/037260/download For Patients: https://www.fda.gov/med ia/919534/download [facility] XR Chest 1 Viewon 06-25-2022 Radiology Study observation (narrative) [facility] Auto Differentialon 06-06 Basophils (Bld) [#/Vol] 0.03 10*3/uL [facility] Basophils/100 WBC (Bld) 0.4 % [facility] Eosinophils (Bld) [#/Vol] 0.12 10*3/uL [facility] Eosinophils/100 WBC (Bld) 1.6 % [facility] Erythrocyte distribution width (RBC) [Entitic vol] 15.3 % High 11.6 - 14.8 % [facility] Hematocrit (Bld) [Volume fraction] 29.6 % Low 36 - 46 % [facility] Hemoglobin (Bld) [Mass/Vol] 8.6 g/dL Low 12 - 16 g/dL [facility] Immature granulocytes (Bld) [#/Vol] 0.04 10*3/uL [facility] Immature granulocytes/100 WBC (Bld) 0.50 % [facility] Comment on above: The IG parameter is the percentage of metamyelocytes, myelocytes and promyelocytes. An immature granulocyte count (IG) of 1% or more suggests the possibility of infection, an IG count of 3% is very likely related to an infection. Interpretation and review of laboratory results Abnormal [facility] Lymphocytes (Bld) [#/Vol] 0.86 10*3/uL Low [facility] Lymphocytes/100 WBC (Bld) 11.4 % [facility] MCH (RBC) [Entitic mass] 24.2 pg Low 26 - 34 pg [facility] MCHC (RBC) [Mass/Vol] 29.1 g/dL Low 31 - 37 g/dL [facility] MCV (RBC) [Entitic vol] 83.4 fL 80 - 100 fL [facility] Monocytes (Bld) [#/Vol] 0.56 10*3/uL [facility] Monocytes/100 WBC (Bld) 7.4 % [facility] Neutrophils (Bld) [#/Vol] 5.93 10*3/uL [facility] Neutrophils/100 WBC (Bld) 78.7 % [facility] Nucleated RBC (Bld) [#/Vol] 0.00 10*3/uL [facility] Nucleated RBC/100 WBC (Bld) [Ratio] 0.0 % [facility] Platelet mean volume (Bld) [Entitic vol] 9.4 fL 9.4 - 12.4 fL [facility] Platelets (Bld) [#/Vol] 281 10*3/uL [facility] RBC (Bld) [#/Vol] 3.55 10*6/uL Low [facility] WBC (Bld) [#/Vol] 7.54 10*3/uL [facility] eah [facility] CK [Catalytic activity/Vol]o n 06-24-2022 Interpretation and review of laboratory results Abnormal [facility] CPK NO MBon 06-24-2022 CK [Catalytic activity/Vol] 37574 U/L High 40 - 170 U/L [facility] Glucose (Bld) [Mass/Vol]on 0 06-24-2022 Glucose [Mass/Vol] 100 mg/dL High 65 - 99 mg/dL [facility] Interpretation and review of laboratory results Abnormal [facility] Glucose [Mass/Vol] 82 mg/dL 65 - 99 mg/dL [facility] Interpretation and review of laboratory results Normal [facility] Glucose [Mass/Vol] 96 mg/dL 65 - 99 mg/dL [facility] Interpretation and review of laboratory results Normal [facility] Glucose [Mass/Vol] 91 mg/dL 65 - 99 mg/dL [facility] Interpretation and review of laboratory results Normal [facility] Magnesium Levelon 06-24-2022 Magnesium [Mass/Vol] 1.7 mg/dL 1.6 - 2 .4 mg/dL [facility] Magnesium [Mass/Vol]on 06-24 Interpretation and review of laboratory results Normal [facility] Renal function 2000 panelon 06-24-2022 Albumin [Mass/Vol] 2.7 g/dL Low 3.2 - 5.2 g/dL [facility] Anion gap [Moles/Vol] 13 mmol/L 10 - 2 0 mmol/L [facility] Calcium [Mass/Vol] 8.5 mg/dL 8.4 - 10. 2 mg/dL [facility] Chloride [Moles/Vol] 107 mmol/L 98 - 10 8 mmol/L [facility] Creatinine [Mass/Vol] 2.48 mg/dL High 0.60 - 1.20 mg/dL [facility] GFR/1.73 sq M.predicted CKD-EPI (S/P/Bld) [Vol rate/Area] 21 Low - PINF [facility] Comment on above: Estimated GFR was ca lculated using the 2020 CKD-EPI creatinine equation. Glucose [Mass/Vol] 80 mg/dL 65 - 99 mg/dL [facility] HCO3 [Moles/Vol] 21 mmol/L 21 - 32 mmol/L [facility] Interpretation and review of laboratory results Abnormal [facility] Phosphate [Mass/Vol] 4.6 mg/dL High 2.8 - 4 .1 mg/dL [facility] Potassium [Moles/Vol] 5.3 mmol/L High 3.5 - 5.1 mmol/L [facility] Sodium [Moles/Vol] 136 mmol/L 135 - 145 mmol/L [facility] Urea nitrogen [Mass/Vol] 34 mg/dL High 8 - 25 mg/dL [facility] Urea nitrogen/Creatinine [Mass ratio] 13.7 mg/mg 10 - 20 [facility] has implemented the eGFR calculation approach that does not have a coefficient for race that conforms to the NKF-ASN Task Force Recommendations. [facility] Tissue ExamOrdered By: Marco A garcia on 06-24-2022 Case Report Surgical Pathology Report Case: [id number] Authorizing Provider: Tyshawn Santos, Collected: 06/23/2022 12:36 PM Ordering Location: [facility] Received: 06/23/2022 01:21 PM Endoscopy Pathologist: Marco A Romero DO Specimens: A) - Colon, Sigmoid Colon B) - Rectum [facility] Work Phone: Pathology report final diagnosis Narrative [id number] kqpEmFZWzuWKsF4VyzsdeZZ haAE7bCR0bqHuanMUucMWsA JEvNlGrz4yiv158cXUwp5wk WOAOxclhvWc2hKqbX42tx6V 8LrdoP7yhUYFqNWfhGPEiDF cgjWOhOKq2FOOyqYDtshIeG mWwRSRksJUlbZU2ZVRcFL0x yutpEZofQSapVOLjmgE0EOA nhWLiS9TnTGMyEE6mobwpEA U7LDrgQQVpCYG5MnReAZPfz 9Tfqjo6XiRvrAHmIArlxKRd gtmaHFKcKdCjOP8tMSboji8 9XRL1j9byjKJwSMphEmpngK VrrkC0OYxFTZIRAClHQeRoT F2pBGlTE0HUXFsUDypsSQZ0 XPiwnSS3l8wpiEDbm7p7XWu kBUU8rNWgiY9rSYY0XESlAV xqt8vxSHGnHEtti7SeAXkWP TRCPZ5ZYY5szFV2NOoILTMT K7rRjYX5DEHkdZK3a4sbeUQ by0h6GMorDSP3hXMgC58gjT C8WNLnXXwsj1zwVWByXLrwb 7IzNIzPBZDTSN9QDL9faNV5 VRmDLEOVCTjrONB8DTobsHk aHjqqbkPbvYQtWhJkeG8twN ovxQ5vbULffWDtzQiuLTUvJ pAgZPP3GNIqBPitq7waIMZa GBbug5UtZHuYTMHKGK8IQQ7 muOU1LRrJRHJQD7jHpXK4NR O4bTH2z6aokVIbd5q8XQfcC TH7oIIwo8ZqoJanGwoypIJ0 SFeoWdamsE4qeOKMPGFAKbr DIaeyjiJuRS9HIEFTHX6HfS G0PEB1rED4g7wtrXNyr4a1S KluANS3gYdgcBWlfffocy48 DMJ9XERuBvRkAMY0t7gxvMB aLBocPdqphRZqdlM9SHnFOU PGJXbXOeWyIQ3iFGsLD2XVN rL2MtGtMME7JAhnnRzpDmaa ayTxsBCiTqKddI1cxHrskO0 cYlxmczIwXHBhclxsaTcyMF tloA44OxGlRdXkF93hx13tX wKyrRSlo0Hli1x7oK93uMJk rVRufn5ipGesSWRgrb1noUO wfIL7RaojUIJkyAymJLzone HzhRJrMPRjUl5cVXpkui12E NV0q9psqMDpVProIwfouUAu tbU0HWnFEAOEXQsINaPcDF9 dKPnNV9TZWHkUUyqtMBW0ZR k4uYI4g5bzsWHar7d2XGalW TW4wPJlsR9zSGM7YUWfBMis e8ykIEEwUOxlp3AuIRmMEHX XPT4GPH5izMT0HWlMTVIYK3 wMfND4XKZwqOC6u9pjtXUnc 0b7OCrlUHV5kTTjA7R2uGel XzmtsHW5VOjmCpdvdN7gzTE UHGRGVvwJJiruejKuTZ8VRV BFLM7JvHC7CPAifCD6v5jwa TSez1q0RWudMCS0iZnbmCEb ssujlr65FVN5CTUeEsWwHUA rJJaaFgurnCP9JQbkXvrazP 5zdCBIWVBFUkxJTksgbmFtZ Z0ACVXKMoXIMU75BhU8TKi0 Lu48WZZbOHOxvJZsUPogI93 2DzqknNJ9x7qesGEmNQuzRf riyUUuysS1AVlEWMZNSNoLI tBsLM7oGLdCH4IVXiA1KvM9 MXn9Iz65IURlUVOymJKpMJy mQ547KEYaEEkgBCXtn5EtQ3 NdYvixtcQvKHu3BEImZOabu 4pgUGDxCKcuo9PoZSkYYXWF SS6CWZ1xwFB7IFbDBCLNIVv eNRU2HWw0oNN6p1lbaQHzx0 s4ZBzsBMH0bLendIEkyiqpY GZzMjBccGFyXGxpNzIwXGxp sagjSWi2eDNllAtjRROqUhO uZ7BhTNGdM9ApWNEooEl4HS Bus3cwdSasFJHqYLStgt48X P0jnFBrTEXfvufsAC7cfRD3 NCHTLGG6dQSbxcWtPgMfgZA liuagwQD2GLAsAQAqf8RkPN QgsuXzlPV5DAHdLS9fDHQeC XRbBNejLB5qPGR0qJIczzGn MS3aXRF1q6GsUACbKQ2gCCP oZSBkaWZmZXJlbnRpYWwgZG apJ30yv1gvHIooV6z9NUWtG ZlaTfTicItgzrnqWVI0CWRw JYTbzxHlBKKiYHT8kK6xGDQ gOUPhw6KyPO6xWD9xvDQqBR BwL23MRsJQIWDEY14TKWQTB VEHH9NOO0zSUWU4JoJ7eRH6 HhPiOcTnNfbsKkM3YCC8Lz8 1MtZ1GJQ9xBQ9PF8uQBS9BW v6YVD3RIp7OBJ6IqD2HMCca NH5TP9hMUPvTDx5EATpF00Z IqAWOVKXG94RZTYJXHOMC0G GZUBUJFlLL7KJXX6LKMMCZD SYOW6NOXwXAzLDCGtNL4JJH K3FHXVILNMAIX0EAyWrEZwS T2HTG3nWYSXpKCMDGDATEKH aWqIQWP3vGYa2RDCyWPH3kt qhJEV3VNk9Vdq2YZXse8yrs ffkMPW0MXy1G4q6DHXfjZKt wZ5mbFD7LsN5ZZqykAKrv5L RbFHeeIE1ShSgTEVetSJwz7 YUN68ch792RjX6RRAyeMRkv 2RJLiy2k9PtnFjnBuT1GZO0 NQ6oAWsFP4JHQ7nBVXAyAFK WLTCGJBWeMU5KXVxWGG9IJY GqDLPAWZOHLFCkNqQUDV0tA KsQFR5WVNGwNBBPMLKHQTNw YD1MGNCUGP0TJQXKNZKPZ11 QPJDGFBCZL4OKG2yCAOAKMK KFQsAFYaNSRS1IHPXPOVILF K3GMyE7 [facility] Work Phone: Pathology report gross observation Narrative a8nbaRNeVXJcsAWpBOSsDMo gizXzQMPtoSJcH2IkbhqlNU cmBU2dPE3ilGkmyRGgoLLqS APoCvLcr2mdz752nZXbm3nu DQJIzhodrIh5cJwrR65zb5Z 6PxopZ1rwHHRqNAelLCFlJU jtdHAzBMf4FZWltARsxiPmJ nAfAIFvhHHqjHU9KYAnUC4d hfnuCMsySEatIKOfqfS4AWM dyUXpO3QlHLXrDO1ektudHL K0KHjuSSFjFDC6GbThGEMei 1Ohart2YxWwwEb4z8slVBBw CMMlcRmfx3thCPS6NMTprRI zZ2feuU2bQOQpAK4weapvs4 qaPAooABfoBFIlaYE3mrP7W NZirAVuR7PlxP2vENIxUZXe meUqvZhfuD1pGvPmKCzrSdN bKI2rDZDbBJXUAOTuwHUlUN HsgaWux6CwGCtkbgpbNMUrl KjwYXRuFBBvZOYJt7wteukd P9dhzW5xVISEn7prdjKWhM0 oe5krHVRhqZMlqYWemXfjBx hjpAK7ROjnXdkepI9ntCWIQ VQMZkaZMrusgyTrQC1KLSXH QrAZGT57KwZcGVB1VMykjQl aAlibnwHurOMvVqIdoB0yax YgJ0ccStkajUV5ODhkMahdc F6mtJKEJVARUpkPDxmncqBk AR1WIEKMUR9McQY4TBMjbRO 5XJ53WFIvNJHofYYsXYenZ2 19XHBsYWluXGZzMjAgIHRhb iBmcmFnbWVudChzKSBvZiB0 sYHpnNCxgQKhp8LduZ3eSAG gNFW2DXHhMHC7BVZmTfWxuN yvrq52AZG6t8ctdRMnBYpnD ioofIHlvqZ3GLxYCXTOLMxL RmQrGB6eJGkFS7QSOGpOOdx sSGR0U4jdcVZ5f5pcrJYuo4 c7DCjtCZI6pRDavyAaZ7rlY AitlYGyc6gldZVaQTuwVjbu rJVvrvI0CLzXDEJTNBvHUsV kYN6uMOaAE6PLHvX3DeKgVM Y9PiwdwJogYinycrHcdVBmI nEwlE1tgQvhzB5jTvWgZSEr UKRbnQQsjBzcb2EqpJw8wXE rEJjxIQXlJ9Uxi5G5aMCeac kuXHBhclxwYXJkXHBhciBCL xRUNXLwiGHmMQHshdHxu3Ww YWxpbiwgZGVzaWduYXRlZCA vZhNOKXC8kH2qEcdbtTM0Rv beRMBnz6UnY3C5ZBLaBGscm 5uaQWDeUVudx1GbTFqYLTNJ OT0OZL2ciFP0EHnTCGSAL3y KfUO5LAEcjIX4H457WFWnCC HdtXVxIOavY666TFTxJFZ6P DAoTByjh9ziGBCbQBfgq2Sr ILqKXFRXSK4QOR8grPK8HXk RHLBPETycHSD6BMkyvMU0b7 ozrALco1x0ZQfuDUN2pVloe ZDuxrefkpEaMFF0DM0yDbRb J62kkbLdjwgon2WvoGzoj8C qAU6oHQT7ffxrZiJpCfOloF QlMqOqsUCjSfDwX39flKXbh NVyiDvtWqjgyYY0NFnbAjdg gK5cqJPVWXOHTjnUEbuknhH bYG7REDXNHsKXPF71ZmIuUV Y9IMz6eNkvGypowuGmeNPyI cBrcQ5fuR2nFFrgftPuTMDj ImejXsansTD9XJkqOhomeX8 zdCBIWVBFUkxJTksgbmFtZT 1UNMSLJQ3IuHB1GTMyzWC6V P73FEEnKDTrsJJkFPfbJ985 PFDsQJmwCMRgMiEeFVWDi1F xcAw0UBQ9Qv1zbYUfNPCkhr ItTFEhk4OpnEZsBQHwIkmdA QHkdYEwDLpkEARoN6pizBOc NFJiEJLPwb2uwySgoJXxgJ8 nuChakoDfREFnq0UgFRRzKY O0JI9zxqHykOIoMSGSx4Cxn ARagQRpSHBzKWRXhQCzg15h tuNFxhLheHNyRIKan1XiGVa jJNBHBRU1WRhjM5xnKNIqqw UHDTMJKYxMN5GhUJMILCQJT GSxKiJAWI4mRrAsUQU4VK80 BtK0HBCsvTN9RR9eQTK3AWa qBScsTvFcZLY4AE8tDRNIVT OGDGnFGT3EKHSSOTTUTG5IB nAqS1vUCBVJHrHxSONPDOOC UUPpDbSVTT5hV6yWTNAJZzJ fXGQTUYQDWSKpNP3USWUTAX LHMA7NYVBZP97ZZCRRTNYLN 3PSR8kXYLUfq4GIufAkHhGe MX43CsC7KXJyEF8uWGxGGKA prsEpM3gcGAgabCD0NdUdRC HxlAXau9FSpaNoArOnFQ42D fO0FISfCN37BFdFNGJalqKm K3koGUsblKR1TkMzGNTotFG OUKSHXXuQBAVIDz3KCFTKCC TRTE7RMwHnJ2VGNM4KSp5UB PSQUKMZZP7TMRuEEmMdN7GS KV6UKf1PWILCEHCRZE8FPyT qRWFJO3EAPxEUO5swGHPGJP DFDNRfSdTYPT9fVZESWL8ZD JNUXXIHM58OZTBQCADJB2QM RH0= [facility] Work Phone: Pathology report microscopic observation Narrative Other stain g0dcxDLpEFBthVAmErGgOFI tLJYau3mhWWIkzIFrSqDiPx NcZnRuYmpcdWMxXGRlZmYwe 4wxp515kVQys3zzXDQhCxG5 eQIcJBIyfJFeG535ZEIdMQb fc3aey7NtHRFqrWBmx3R9YZ FWwyomsAp2ePdzE55rq9D5I uowT3nvEAVnELJmE7NoHG0o PXDaSkz1RQN2YBY8VBCcWJI nJ5HrRV2iQBXqpVAhNTx2u5 jlbOtbCTVbXTH8i2aaGOcop nOrTG0coa4vvWw4c8wahcGy ZMIgIJQvxJPWFQBxZ1IrtEz rIj3tzKu2hOfmBplfBBL7Qd i1MU0vkt94bbm1uWrfJMZxt yqaRxH4AKfyCPEjklxgCYe3 ZPfkSHUsbTE3NQAuyDMwX9R sFCDhHY0wgiv4PPD5PLhbIY RqQkM8TPIumFSiVHHbwMjeV Gpwd468UAK2OnJrNB1cF3Qy z6M8cF6kiPTgKXKocAEeYoT vHBJrui2mhUWlOJxxf2PhHU X6gpZ7qXAofVOhZAGsII53F iiut8IcQgdqWZV5RFEnfqCl e6Bnv9wfLeSnroIcA3sqW4A yZHJoZWFkXHBnYnJkcmZvb3 Iri2ZmtFWlqPx7b9hqJZAeB QVpwApfe8tsWOX8TSAaH9D7 mAYfd9tpDOhaBGCqjIB0jrQ 5AUAmdSSdO2DrpL6vDQTcPD 3tdjf2e9wyQTG0NEsjKGNxH jP4stZ5QKKquZZqXAIcvRqo SPurh063CDB7FvKyZPHhc9L hO2JzzPxyK41abVffD09tJO DwjIzxxJ4edSllyL6pNtGvF nMyNFxxbFxwbGFpblxmMVxm llJvLMgfvpdeXKAdNGsgI3i oElQaLOGhtWdaVQlyp8FvXG JyFSJoZzRgEUivbd0lH55tp WPuQZnstOsbCNJlf91wdGKo sMCaNz9unIZpXiinCLY0 [facility] Work Phone: [facility] Work Phone: Troponin x 2 (Now and Repeat in 3 hours)on 06-24-2022 [facility] Troponin I 1 ng/L < -/+ 12 change [facility] Troponin I Delta Change No biomarker evidence of cardiac injury. [facility] Troponin I 31 ng/L NINF - 59 ng/L [facility] Troponin I 30 ng/L NINF - 59 ng/L [facility] Troponin I Interpretation Normal [facility] XR Chest 1 Viewon 06-24-2022 1. New mild pulmonary vascular congestion. 2. No focal airspace consolidation. Workstation ID: [id number] [employer] EXAMINATION: XR CHEST PA/AP 06/24/2022 9:59 am [...] No acute osseous or soft tissue abnormalities. [employer] Meaghan Canada, DO - 06/24/2022 EXAMINATION: XR [...] No focal airspace consolidation. Workstation ID: [id number] [facility] Radiology [facility] (narrative) [facility] 1 ViewOrdered By: Virgil Canada on 06-24-2022 [facility] Work Phone: Basic metabolic 2000 panelOr dered By: Ronal Allan on 06-23-2022 Anion gap [Moles/Vol] 14 mmol/L 10 - 2 0 mmol/L [facility] Calcium [Mass/Vol] 8.0 mg/dL Low 8.4 - 10. 2 mg/dL [facility] Chloride [Moles/Vol] 105 mmol/L 98 - 10 8 mmol/L [facility] Creatinine [Mass/Vol] 2.86 mg/dL High 0.60 - 1.20 mg/dL [facility] GFR/1.73 sq M.predicted CKD-EPI (S/P/Bld) [Vol rate/Area] 18 Low - PINF [facility] Comment on above: Estimated GFR was ca lculated using the 2020 CKD-EPI creatinine equation. Glucose [Mass/Vol] 85 mg/dL 65 - 99 mg/dL [facility] HCO3 [Moles/Vol] 20 mmol/L Low 21 - 32 mmol/L [facility] Interpretation and review of laboratory results Abnormal [facility] Potassium [Moles/Vol] 5.3 mmol/L High 3.5 - 5.1 mmol/L [facility] Sodium [Moles/Vol] 134 mmol/L Low 135 - 145 mmol/L [facility] Urea nitrogen [Mass/Vol] 45 mg/dL High 8 - 25 mg/dL [facility] Urea nitrogen/Creatinine [Mass ratio] 15.7 mg/mg 10 - 20 [facility] has implemented the eGFR calculation approach that does not have a coefficient for race that conforms to the NKF-ASN Task Force Recommendations. [facility] CBC panel Auto (Bld)on 06-23 Erythrocyte distribution width (RBC) [Entitic vol] 15.8 % High 11.6 - 14.8 % [facility] Hematocrit (Bld) [Volume fraction] 28.1 % Low 36 - 46 % [facility] Hemoglobin (Bld) [Mass/Vol] 8.4 g/dL Low 12 - 16 g/dL [facility] Interpretation and review of laboratory results Abnormal [facility] MCH (RBC) [Entitic mass] 24.9 pg Low 26 - 34 pg [facility] MCHC (RBC) [Mass/Vol] 29.9 g/dL Low 31 - 37 g/dL [facility] MCV (RBC) [Entitic vol] 83.4 fL 80 - 100 fL [facility] Nucleated RBC (Bld) [#/Vol] 0.00 10*3/uL [facility] Nucleated RBC/100 WBC (Bld) [Ratio] 0.0 % [facility] Platelet mean volume (Bld) [Entitic vol] 9.9 fL 9.4 - 12.4 fL [facility] Platelets (Bld) [#/Vol] 303 10*3/uL [facility] RBC (Bld) [#/Vol] 3.37 10*6/uL Low [facility] ealth WBC (Bld) [#/Vol] 10.12 10*3/uL [facility] Glucose (Bld) [Mass/Vol]on 0 06-23-2022 Glucose [Mass/Vol] 102 mg/dL High 65 - 99 [facility] Interpretation and review of laboratory results Abnormal [facility] Glucose [Mass/Vol] 97 mg/dL 65 - 99 mg/dL [facility] o[facility]al Interpretation and review of laboratory results Normal [facility] Glucose [Mass/Vol] 90 mg/dL 65 - 99 mg/dL [facility] o[facility]al Interpretation and review of laboratory results Normal [facility] Glucose [Mass/Vol] 90 mg/dL 65 - 99 mg/dL [facility] Interpretation and review of laboratory results Normal [facility] SIGMOIDOSCOPYon 06-23-2022 [facility] TSH DL <= 0.005 mIU/L Qnon 0 06-23-2022 Interpretation and review of laboratory results Normal [facility] TSH Qn 0.68 m[IU]/L [facility] Gastrointestinal pathogens D NA and RNA panel CATRINA+non-probe (Stl)Ordered By: Andree Chapa on 06-22-2022 Adenovirus 40+41 DNA CATRINA+non-probe Ql (Stl) Not detected Not Detected [facility] Astrovirus subtypes 1-8 RNA CATRINA+non-probe Ql (Stl) Not detected Not Detected [facility] C. cayetanensis DNA CATRINA+non-probe Ql (Stl) Not detected Not Detected [facility] C. coli+jejuni+upsaliensis DNA CATRINA+non-probe Ql (Stl) Not detected Not Detected [facility] C. difficile toxin A+B tcdA+tcdB genes CATRINA+non-probe Ql (Stl) Not detected Not Detected [facility] Cryptosporidium sp DNA CATRINA+non-probe Ql (Stl) Not detected Not Detected [facility] E. coli enteroaggregative [place] plasmid aggR+aatA genes CATRINA+non-probe Ql (Stl) Not detected Not Detected [facility] E. coli enteropathogenic eae gene CATRINA+non-probe Ql (Stl) Not detected Not Detected [facility] E. coli enterotoxigenic ltA+st1a+st1b genes CATRINA+non-probe Ql (Stl) Not detected Not Detected [facility] E. coli stx1+stx2 genes CATRINA+non-probe Ql (Stl) Not detected Not Detected [facility] E. histolytica DNA CATRINA+non-probe Ql (Stl) Not detected Not Detected [facility] G. lamblia DNA CATRINA+non-probe Ql (Stl) Not detected Not Detected [facility] Interpretation and review of laboratory results Normal [facility] Norovirus genogroup I+II RNA CATRINA+non-probe Ql (Stl) Not detected Not Detected [facility] P. shigelloides DNA CATRINA+non-probe Ql (Stl) Not detected Not Detected [facility] Rotavirus A RNA CATRINA+non-probe Ql (Stl) Not detected Not Detected [facility] S. enterica+bongori DNA CATRINA+non-probe Ql (Stl) Not detected Not Detect[facility] Sapovirus genogroups I+II+IV+V RNA CATRINA+non-probe Ql (Stl) Not detected Not Detected [facility] Shigella species+EIEC invasion plasmid antigen H ipaH gene CATRINA+non-probe Ql (Stl) Not detected Not Detected [facility] V. cholerae DNA CATRINA+non-probe Ql (Stl) Not detected [facility] V. cholerae+parahaemolytic us+vulnificus DNA CATRINA+non-probe Ql (Stl) Not detected Not Detected [facility] Y. enterocolitica DNA CATRINA+non-probe Ql (Stl) Not detected Not [facility]ed [facility] Results of PCR testi ng [...] infections as well as select bacterial infections. [facility] Glucose (Bld) [Mass/Vol]on 0 06-22-2022 Glucose [Mass/Vol] 98 mg/dL 65 - 99 mg/dL [facility] Interpretation and review of laboratory results Normal [facility] Glucose [Mass/Vol] 95 mg/dL 65 - 99 mg/dL [facility] Interpretation and review of laboratory results Normal [facility] Glucose [Mass/Vol] 121 mg/dL High 65 - 99 mg/dL [facility] Interpretation and review of laboratory results Abnormal [facility] Glucose [Mass/Vol] 99 mg/dL 65 - 99 mg/dL [facility] Interpretation and review of laboratory results Normal [facility] Basic metabolic 1998 panelon 06-21-2022 [facility] CBC Auto Differentialon 06-06 Basophils (Bld) [#/Vol] 0.06 10*3/uL [facility] Basophils/100 WBC (Bld) 0.3 % [facility] Eosin[facility] (Bld) [#/Vol] 0.03 10*3/uL [facility] Eosinophils/100 WBC (Bld) 0.1 % [facility] Erythrocyte distribution width (RBC) [Entitic vol] 15.8 % High 11.6 - 14.8 % [facility] Hematocrit (Bld) [Volume fraction] 36.1 % 36 - 46 % [facility] Hemoglobin (Bld) [Mass/Vol] 10.9 g/dL Low 12 - 16 g/dL [facility] Immature granulocytes (Bld) [#/Vol] 0.12 10*3/uL [facility] Immature granulocytes/100 WBC (Bld) 0.60 % [facility] Comment on above: The IG parameter is the percentage of metamyelocytes, myelocytes and promyelocytes. An immature granulocyte count (IG) of 1% or more suggests the possibility of infection, an IG count of 3% is very likely related to an infection. Interpretation and review of laboratory results Abnormal [facility] Lymphocytes (Bld) [#/Vol] 1.18 10*3/uL [facility] Lymphocytes/100 WBC (Bld) 5.7 % [facility] MCH (RBC) [Entitic mass] 24.7 pg Low 26 - 34 pg [facility] MCHC (RBC) [Mass/Vol] 30.2 g/dL Low 31 - 37 g/dL [facility] MCV (RBC) [Entitic vol] 81.9 fL 80 - 100 fL [facility] Monocytes (Bld) [#/Vol] 0.99 10*3/uL High [facility] Monocytes/100 WBC (Bld) 4.8 % [facility] Neutrophils (Bld) [#/Vol] 18.32 10*3/uL High [facility] Neutrophils/100 WBC (Bld) 88.5 % [facility] Nucleated RBC (Bld) [#/Vol] 0.00 10*3/uL [facility] Nucleated RBC/100 WBC (Bld) [Ratio] 0.0 % [facility] Platelet mean volume (Bld) [Entitic vol] 9.7 fL 9.4 - 12.4 fL [facility] Platelets (Bld) [#/Vol] 503 10*3/uL High [facility] RBC (Bld) [#/Vol] 4.41 10*6/uL [facility] ealth WBC (Bld) [#/Vol] 20.70 10*3/uL [facility] CT Abdomen Pelvis Without Co ntraston 06-21-2022 1. There is fluid throughout the colon which may be consistent with rapid transit/diarrhea. 2. Hepatic steatosis. 3. Extensive aortic calcification. [employer] Workstation ID: [id number] [employer] EXAMINATION: CT ABDOMEN PELVIS WITHOUT CONTRAST HISTORY: [...] the lumbar spine. No suspicious osseous lesion. [employer] [facility] [...] 2. Hepatic steatosis. 3. Extensive aortic calcification. [email or web address] Workstation ID: [id number] [facility] Radiology Study observation (narrative) [facility] Comprehensive metabolic 2000 panelon 06-21-2022 Albumin [Mass/Vol] 3.2 g/dL 3.2 - 5.2 g/dL [facility] ALP [Catalytic activity/Vol] 81 U/L 40 - 150 U/L [facility] ALT [Catalytic activity/Vol] 131 U/L High 14 - 65 U/L [facility] AST [Catalytic activity/Vol] 712 U/L High 0 - 45 U/L [facility] Bilirubin [Mass/Vol] 0.2 mg/dL 0 - 1.3 mg/dL [facility] Calcium [Mass/Vol] 9.4 mg/dL 8.4 - 10. 2 mg/dL [facility] Protein [Mass/Vol] 8.0 g/dL 6 - 8 g/dL [facility] Critical Careon 06-21-2022 Jaiden Bagley MD 06/21/2022 2:29 PM Critical Care Performed by: Jaiden Bagley MD Authorized by: Jaiden Bagley MD Total critical care time: 30 minutes [facility] Glucose (Bld) [Mass/Vol]on 0 06-21-2022 Glucose [Mass/Vol] 122 mg/dL High 65 - 99 mg/dL [facility] Interpretation and review of laboratory results Abnormal [facility] Glucose [Mass/Vol] 98 mg/dL 65 - 99 mg/dL [facility] Interpretation and review of laboratory results Normal [facility] INR Coag (PPP) [Relative pablo e]on 06-21-2022 Interpretation and review of laboratory results Normal [facility] PT Coag (PPP) [Time] 14.2 s [facility] During the induction phase of oral anticoagulation, the INR may not reflect the anticoagulation status of the patient. Therapeutic ranges for INR's are: Most clinical situations: INR 2.0-3.0 Mechanical Prosthetic Valve: INR 2.5-3.5 Critical: INR >5.0 [facility] Laboratory - Chemistry and C hemistry - challengeon 06-21-2022 Anion gap [Moles/Vol] 15 mmol/L 10 - 2 0 mmol/L [facility] Chloride [Moles/Vol] 97 mmol/L Low 98 - 10 8 mmol/L [facility] Creatinine [Mass/Vol] 2.61 mg/dL High 0.60 - 1.20 mg/dL [facility] GFR/1.73 sq M.predicted CKD-EPI (S/P/Bld) [Vol rate/Area] 20 Low - PINF [facility] Comment on above: Estimated GFR was ca lculated using the 2020 CKD-EPI creatinine equation. Glucose [Mass/Vol] 124 mg/dL High 65 - 99 mg/dL [facility] HCO3 [Moles/Vol] 23 mmol/L 21 - 32 mmol/L [facility] Potassium [Moles/Vol] 5.2 mmol/L High 3.5 - 5.1 mmol/L [facility] Sodium [Moles/Vol] 130 mmol/L Low 135 - 145 mmol/L [facility] Urea nitrogen [Mass/Vol] 48 mg/dL High 8 - 25 mg/dL [facility] Urea nitrogen/Creatinine [Mass ratio] 18.4 mg/mg 10 - 20 [facility] Lactate [Moles/Vol]on 2021 Interpretation and review of laboratory results Normal [facility] Lactic Acid, Plasmaon 2021 Lactate [Moles/Vol] 0.9 mmol/L 0.6 - 2 mmol/L [facility] Lipaseon 06-21-2022 Lipase [Catalytic activity/Vol] 133 U/L 73 - 393 U/L [facility] Lipase [Catalytic activity/V ol]on 06-21-2022 Interpretation and review of laboratory results Normal [facility] No Panel Informationon 06-21 [facility] Interpretation and review of laboratory results Abnormal [facility] has implemented the eGFR calculation approach that does not have a coefficient for race that conforms to the NKF-ASN Task Force Recommendations. [facility] PT/INRon 06-21-2022 INR Coag (PPP) [Relative time] 1.1 {INR} 0.8 - 1.1 [facility] Troponinon 06-21-2022 Troponin I 34 ng/L NINF - 59 ng/L [facility] Troponin I Interpretation Normal [facility] XR Chest 1 Viewon 06-21-2022 No evident acute process in the chest. JMK/lab Workstation ID: [id number] [employer] EXAMINATION: XR CHEST PA/AP HISTORY: Weakness. COMPARISON: Chest x-ray 03/31/2022. TECHNIQUE: A portable frontal upright view of the chest. FINDINGS: Calcified granulomas at the right upper lobe. No airspace opacity. No pneumothorax or pleural effusion. Cardiomediastinal silhouette and pulmonary vasculature are within normal limits. Surgical clips project at the left neck. Surgical anchor at the right humeral head. [facility] Vasiliy Lopez MD - 06/21/2022 EXAMINATION: [...] No evident acute process in the chest. [employer] Workstation ID: [id number] [facility] Radiology Study observation (narrative) XR Chest 1 ViewOrdered By: Brandie Lopez on 06-21-2022 [facility] Work Phone: Basic metabolic 2000 panelon 04-04-2022 Anion gap [Moles/Vol] 13 mmol/L 10 - 2 0 mmol/L [facility] Calcium [Mass/Vol] 9.1 mg/dL 8.4 - 10. 2 mg/dL [facility] Chloride [Moles/Vol] 99 mmol/L 98 - 10 8 mmol/L [facility] Creatinine [Mass/Vol] 1.23 mg/dL High 0.60 - 1.20 mg/dL [facility] GFR/1.73 sq M.predicted CKD-EPI (S/P/Bld) [Vol rate/Area] 47 Low - PINF [facility] Glucose [Mass/Vol] 101 mg/dL High 65 - 99 mg/dL [facility] H[facility]3 [Moles/Vol] 28 mmol/L 21 - 32 mmol/L [facility] Interpretation and review of laboratory results Abnormal [facility] Potassium [Moles/Vol] 4.3 mmol/L 3.5 - 5.1 mmol/L [facility] Sodium [Moles/Vol] 136 mmol/L 135 - 145 mmol/L [facility] Urea nitrogen [Mass/Vol] 10 mg/dL 8 - 25 mg/dL [facility] Urea nitrogen/Creatinine [Mass ratio] 8.1 mg/mg Low 10 - 20 [facility] The eGFR should be u sed for monitoring renal function only and not for medication dosing. [facility] CBC panel Auto (Bld)on 04-04 Erythrocyte distribution width (RBC) [Entitic vol] 16.1 % High 11.6 - 14.8 % [facility] Hematocrit (Bld) [Volume fraction] 32.8 % Low 36 - 46 % [facility] Hemoglobin (Bld) [Mass/Vol] 9.9 g/dL Low 12 - 16 g/dL [facility] Interpretation and review of laboratory results Abnormal [facility] MCH (RBC) [Entitic mass] 24.6 pg Low 26 - 34 pg [facility] MCHC (RBC) [Mass/Vol] 30.2 g/dL Low 31 - 37 g/dL [facility] MCV (RBC) [Entitic vol] 81.6 fL 80 - 100 fL [facility] Nucleated RBC (Bld) [#/Vol] 0.00 10*3/uL [facility] Nucleated RBC/100 WBC (Bld) [Ratio] 0.0 % [facility] Platelet mean volume (Bld) [Entitic vol] 10.0 fL 9.4 - 12.4 fL [facility] Platelets (Bld) [#/Vol] 267 10*3/uL [facility] RBC (Bld) [#/Vol] 4.02 10*6/uL [facility] WBC (Bld) [#/Vol] 6.14 10*3/uL [facility] Glucose (Bld) [Mass/Vol]on 0 04-04-2022 Glucose [Mass/Vol] 106 mg/dL High 65 - 99 mg/dL [facility] Interpretation and review of laboratory results Abnormal [facility] Magnesium Levelon 04-04-2022 Magnesium [Mass/Vol] 1.9 mg/dL 1.6 - 2 .4 mg/dL [facility] Magnesium [Mass/Vol]on 04-04 Interpretation and review of laboratory results Normal [facility] Phosphate [Mass/Vol]on 04-04 Interpretation and review of laboratory results Abnormal [facility] Phosphoruson 04-04-2022 Phosphate [Mass/Vol] 4.4 mg/dL High 2.8 - 4 .1 mg/dL [facility] Basic metabolic 2000 panelon 04-03-2022 Anion gap [Moles/Vol] 15 mmol/L 10 - 2 0 mmol/L [facility] Calcium [Mass/Vol] 9.1 mg/dL 8.4 - 10. 2 mg/dL [facility] Chloride [Moles/Vol] 101 mmol/L 98 - 10 8 mmol/L [facility] Creatinine [Mass/Vol] 1.14 mg/dL 0.60 - 1.20 mg/dL [facility] GFR/1.73 sq M.predicted CKD-EPI (S/P/Bld) [Vol rate/Area] 51 Low - PINF [facility] Glucose [Mass/Vol] 101 mg/dL High 65 - 99 mg/dL [facility] HCO3 [Moles/Vol] 26 mmol/L 21 - 32 mmol/L [facility] Interpretation and review of laboratory results Abnormal [facility] Potassium [Moles/Vol] 4.7 mmol/L 3.5 - 5.1 mmol/L [facility] Sodium [Moles/Vol] 137 mmol/L 135 - 145 mmol/L [facility] Urea nitrogen [Mass/Vol] 10 mg/dL 8 - 25 mg/dL [facility] Urea nitrogen/Creatinine [Mass ratio] 8.8 mg/mg Low 10 - 20 [facility] The eGFR should be u sed for monitoring renal function only and not for medication dosing. [facility] CBC panel Auto (Bld)on 04-03 Erythrocyte distribution width (RBC) [Entitic vol] 16.2 % High 11.6 - 14.8 % [facility] Hematocrit (Bld) [Volume fraction] 30.9 % Low 36 - 46 % [facility] Hemoglobin (Bld) [Mass/Vol] 9.3 g/dL Low 12 - 16 g/dL [facility] Interpretation and review of laboratory results Abnormal [facility] MCH (RBC) [Entitic mass] 24.4 pg Low 26 - 34 pg [facility] MCHC (RBC) [Mass/Vol] 30.1 g/dL Low 31 - 37 g/dL [facility] (RBC[facility] [Entitic vol] 81.1 fL 80 - 100 fL [facility] Nucleated RBC (Bld) [#/Vol] 0.00 10*3/uL [facility] Nucleated RBC/100 WBC (Bld) [Ratio] 0.0 % [facility] Platelet mean volume (Bld) [Entitic vol] 10.3 fL 9.4 - 12.4 fL [facility] Platelets (Bld) [#/Vol] 286 10*3/uL [facility] RBC (Bld) [#/Vol] 3.81 10*6/uL Low [facility] WBC (Bld) [#/Vol] 7.32 10*3/uL [facility] Glucose (Bld) [Mass/Vol]on 0 04-03-2022 Glucose [Mass/Vol] 118 mg/dL High 65 - 99 mg/dL [facility] Interpretation and review of laboratory results Abnormal [facility] Glucose [Mass/Vol] 141 mg/dL High 65 - 99 mg/[facility] results Abnormal [facility] Glucose [Mass/Vol] 98 mg/dL 65 - 99 mg/dL [facility] Interpretation and review of laboratory results Normal [facility] Glucose [Mass/Vol] 109 mg/dL High 65 - 99 mg/dL [facility] Interpretation and review of laboratory results Abnormal [facility] Magnesium Levelon 04-03-2022 Magnesium [Mass/Vol] 1.9 mg/dL 1.6 - 2 .4 mg/dL [facility] Magnesium [Mass/Vol]on 04-03 Interpretation and review of laboratory results Normal [facility] Phosphate [Mass/Vol]on 04-03 Interpretation and review of laboratory results Normal [facility] Phosphoruson 04-03-2022 Phosphate [Mass/Vol] 4.1 mg/dL 2.8 - 4 .1 mg/dL [facility] Basic metabolic 2000 panelon 04-02-2022 Anion gap [Moles/Vol] 16 mmol/L 10 - 2 0 mmol/L [facility] Calcium [Mass/Vol] 8.6 mg/dL 8.4 - 10. 2 mg/dL [facility] Chloride [Moles/Vol] 101 mmol/L 98 - 10 8 mmol/L [facility] Creatinine [Mass/Vol] 1.12 mg/dL 0.60 - 1.20 mg/dL [facility] GFR/1.73 sq M.predicted CKD-EPI (S/P/Bld) [Vol rate/Area] 52 Low - PINF [facility] Glucose [Mass/Vol] 95 mg/dL 65 - 99 mg/dL [facility] HCO3 [Moles/Vol] 24 mmol/L 21 - 32 mmol/L [facility] Interpretation and review of laboratory results Abnormal [facility] Potassium [Moles/Vol] 5.0 mmol/L 3.5 - 5.1 mmol/L [facility] Sodium [Moles/Vol] 136 mmol/L 135 - 145 mmol/L [facility] Urea nitrogen [Mass/Vol] 11 mg/dL 8 - 25 mg/dL [facility] Urea nitrogen/Creatinine [Mass ratio] 9.8 mg/mg Low 10 - 20 [facility] The eGFR should be u sed for monitoring renal function only and not for medication dosing. [facility] CBC panel Auto (Bld)on 04-02 Erythrocyte distribution width (RBC) [Entitic vol] 16.4 % High 11.6 - 14.8 % [facility] Hematocrit (Bld) [Volume fraction] 31.9 % Low 36 - 46 % [facility] Hemoglobin (Bld) [Mass/Vol] 9.4 g/dL Low 12 - 16 g/dL [facility] Interpretation and review of laboratory results Abnormal [facility] MCH (RBC) [Entitic mass] 24.4 pg Low 26 - 34 pg [facility] MCHC (RBC) [Mass/Vol] 29.5 g/dL Low 31 - 37 g/[facility] MCV (RBC[facility] [Entitic vol] 82.9 fL 80 - 100 fL [facility] Nucleated RBC (Bld) [#/Vol] 0.00 10*3/uL [facility] Nucleated RBC/100 WBC (Bld) [Ratio] 0.0 % [facility] Platelet mean volume (Bld) [Entitic vol] 9.9 fL 9.4 - 12.4 fL [facility] Platelets (Bld) [#/Vol] 280 10*3/uL [facility] RBC (Bld) [#/Vol] 3.85 10*6/uL Low [facility] WBC (Bld) [#/Vol] 7.21 10*3/uL [facility] 12 Leadon 04-02-2022 Atrial Rate 82 BPM [facility] P Fowler 70 degrees [facility] P-R Interval 152 ms [facility] Q-T Interval 368 ms [facility] QRS Duration 94 ms [facility] QTC Calculation (Bezet) 429 ms [facility] R Fowler 45 degrees [facility] T Fowler 16 degrees [facility] Ventricular Rate 82 BPM [facility] Normal sinus rhythm Nonspecific T wave abnormality Abnormal ECG Confirmed by RIVER ZAVALA MD ([id number]) on 04/02/2022 8:18:58 AM MUSE [facility] Atrial Rate 75 BPM [facility] P Fowler 56 degrees [facility] P-R Interval 144 ms [facility] Q-T Interval 366 ms [facility] QRS Duration 98 ms [facility] QTC Calculation (Bezet) 408 ms [facility] R Fowler 31 degrees [facility] T Fowler 1 degrees [facility] Ventricular Rate 75 BPM [facility] Normal sinus rhythm Nonspecific T wave abnormality Abnormal ECG Confirmed by RIVER ZAVALA MD ([id number]) on 04/02/2022 8:13:22 AM [facility] Glucose (Bld) [Mass/Vol]on 0 04-02-2022 Glucose [Mass/Vol] 101 mg/dL High 65 - 99 mg/dL [facility] Interpretation and review of laboratory results Abnormal [facility] Glucose [Mass/Vol] 107 mg/dL High 65 - 99 mg/dL [facility] Interpretation and review of laboratory results Abnormal [facility] Glucose [Mass/Vol] 153 mg/dL High 65 - 99 mg/dL [facility] Interpretation and review of laboratory results Abnormal [facility] Glucose [Mass/Vol] 95 mg/dL 65 - 99 mg/dL [facility] Interpretation and review of laboratory results Normal [facility] Magnesium Levelon 04-02-2022 Magnesium [Mass/Vol] 1.9 mg/dL 1.6 - 2 .4 mg/dL [facility] Magnesium [Mass/Vol]on 04-02 Interpretation and review of laboratory results Normal [facility] Phosphate [Mass/Vol]on 04-02 Interpretation and review of laboratory results Normal [facility] Phosphoruson 04-02-2022 Phosphate [Mass/Vol] 3.1 mg/dL 2.8 - 4 .1 mg/dL [facility] UrinalysisOrdered By: Surendra Patel on 04-02-2022 Bacteria Auto Ql (U) Rare Abnormal None Se en /hpf [facility] Bilirubin Ql (U) Negative Negative [facility] th Clarity Refractometry automated (U) Clear Clear [facility] Color (U) Yellow Colorless, Yellow [facility] Glucose Auto test strip (U) [Mass/Vol] Negative Negative mg/dL [facility] Hemoglobin Auto test strip Ql (U) Moderate Abnormal Negative [facility] Interpretation and review of laboratory results Abnormal [facility] Ketones (U) [Mass/Vol] Negative Negat radha mg/dL [facility] Leukocyte esterase Auto test strip Ql (U) Trace Abnormal Negative [facility] Mucus Auto (Urine sed) [#/Area] Rare None Seen, Rare /lpf [facility] Nitrite Auto test strip Ql (U) Negative Negative [facility] pH (U) 6.0 [pH] 5 - 7 [facility] Protein (U) [Mass/Vol] 100 mg/dL Abnormal Negat radha mg/dL [facility] RBC Auto (Urine sed) [#/Area] 64 High [facility] Specific gravity (U) [Rel density] 1.010 1.005 - 1.025 [facility] Urobilinogen (U) [Mass/Vol] mg/dL NINF - 2.0 mg/dL [facility] WBC Auto (Urine sed) [#/Area] 4 [facility] Microscopic examinat ion is performed on all urinalysis samples and only positive findings are reported. The test for blood on the chemical analytic portion of urinalysis may also be positive due to hemoglobinuria and myoglobinuria and if red blood cells are present they are quantified by microscopic examination. [facility] Basic metabolic 2000 panelon 04-01-2022 Anion gap [Moles/Vol] 13 mmol/L 10 - 2 0 mmol/L [facility] Calcium [Mass/Vol] 8.5 mg/dL 8.4 - 10. 2 mg/dL [facility] Chloride [Moles/Vol] 102 mmol/L 98 - 10 8 mmol/L [facility] Creatinine [Mass/Vol] 1.48 mg/dL High 0.60 - 1.20 mg/dL [facility] GFR/1.73 sq M.predicted CKD-EPI (S/P/Bld) [Vol rate/Area] 37 Low - PINF [facility] Glucose [Mass/Vol] 92 mg/dL 65 - 99 mg/dL [facility] H[facility]3 [Moles/Vol] 24 mmol/L 21 - 32 mmol/L [facility] Interpretation and review of laboratory results Abnormal [facility] Potassium [Moles/Vol] 4.8 mmol/L 3.5 - 5.1 mmol/L [facility] Sodium [Moles/Vol] 134 mmol/L Low 135 - 145 mmol/L [facility] Urea nitrogen [Mass/Vol] 15 mg/dL 8 - 25 mg/dL [facility] Urea nitrogen/Creatinine [Mass ratio] 10.1 mg/mg 10 - 20 [facility] The eGFR should be u sed for monitoring renal function only and not for medication dosing. [facility] CBC panel Auto (Bld)on 04-01 Erythrocyte distribution width (RBC) [Entitic vol] 16.3 % High 11.6 - 14.8 % [facility] Hematocrit (Bld) [Volume fraction] 31.8 % Low 36 - 46 % [facility] Hemoglobin (Bld) [Mass/Vol] 9.4 g/dL Low 12 - 16 g/dL [facility] Interpretation and review of laboratory results Abnormal [facility] MCH (RBC) [Entitic mass] 24.7 pg Low 26 - 34 pg [facility] MCHC (RBC) [Mass/Vol] 29.6 g/dL Low 31 - 37 g/dL [facility] MCV (RBC) [Entitic vol] 83.5 fL 80 - 100 fL [facility] Nucleated RBC (Bld) [#/Vol] 0.00 10*3/uL [facility] Nucleated RBC/100 WBC (Bld) [Ratio] 0.0 % [facility] Platelet mean volume (Bld) [Entitic vol] 9.8 fL 9.4 - 12.4 fL [facility] Platelets (Bld) [#/Vol] 269 10*3/uL [facility] RBC (Bld) [#/Vol] 3.81 10*6/uL Low [facility] WBC (Bld) [#/Vol] 7.70 10*3/uL [facility] Glucose (Bld) [Mass/Vol]on 0 04-01-2022 Glucose [Mass/Vol] 133 mg/dL High 65 - 99 mg/dL [facility] Interpretation and review of laboratory results Abnormal [facility] Glucose [Mass/Vol] 103 mg/dL High 65 - 99 [facility]dL [facility] Interpretation and review of laboratory results Abnormal [facility] Glucose [Mass/Vol] 97 mg/dL 65 - 99 mg/dL [facility] Interpretation and review of laboratory results Normal [facility] Glucose [Mass/Vol] 95 mg/dL 65 - 99 mg/dL [facility] Interpretation and review of laboratory results Normal [facility] Magnesium Levelon 04-01-2022 Magnesium [Mass/Vol] 1.9 mg/dL 1.6 - 2 .4 mg/dL [facility] Magnesium [Mass/Vol]on 04-01 Interpretation and review of laboratory results Normal [facility] Phosphate [Mass/Vol]on 04-01 Interpretation and review of laboratory results Normal [facility] Phosphoruson 04-01-2022 Phosphate [Mass/Vol] 3.5 mg/dL 2.8 - 4 .1 mg/dL [facility] Basic metabolic 2000 panelon 03-31-2022 Anion gap [Moles/Vol] 17 mmol/L 10 - 2 0 mmol/L [facility] Calcium [Mass/Vol] 8.5 mg/dL 8.4 - 10. 2 mg/dL [facility] Chloride [Moles/Vol] 98 mmol/L 98 - 10 8 mmol/L [facility] Creatinine [Mass/Vol] 1.97 mg/dL High 0.60 - 1.20 mg/dL [facility] GFR/1.73 sq M.predicted CKD-EPI (S/P/Bld) [Vol rate/Area] 26 Low - PINF [facility] Glucose [Mass/Vol] 97 mg/dL 65 - 99 mg/dL [facility] HCO3 [Moles/Vol] 24 mmol/L 21 - 32 mmol/L [facility] Interpretation and review of laboratory results Abnormal [facility] Potassium [Moles/Vol] 4.8 mmol/L 3.5 - 5.1 mmol/L [facility] Sodium [Moles/Vol] 134 mmol/L Low 135 - 145 mmol/L [facility] Urea nitrogen [Mass/Vol] 22 mg/dL 8 - 25 mg/dL [facility] Urea nitrogen/Creatinine [Mass ratio] 11.2 mg/mg 10 - 20 [facility] The eGFR should be u sed for monitoring renal function only and not for medication dosing. [facility] CBC panel Auto (Bld)on 03-31 Erythrocyte distribution width (RBC) [Entitic vol] 16.5 % High 11.6 - 14.8 % [facility] Hematocrit (Bld) [Volume fraction] 34.1 % Low 36 - 46 % [facility] Hemoglobin (Bld) [Mass/Vol] 10.0 g/dL Low 12 - 16 g/dL [facility] Interpretation and review of laboratory results Abnormal [facility] MCH (RBC) [Entitic mass] 24.5 pg Low 26 - 34 pg [facility] MCHC (RBC) [Mass/Vol] 29.3 g/dL Low 31 - 37 g/dL [facility] MCV (RBC) [Entitic vol] 83.6 fL 80 - 100 fL [facility] Nucleated RBC (Bld) [#/Vol] 0.00 10*3/uL [facility] Nucleated RBC/100 WBC (Bld) [Ratio] 0.0 % [facility] Platelet mean volume (Bld) [Entitic vol] 10.0 fL 9.4 - 12.4 fL [facility] Platelets (Bld) [#/Vol] 413 10*3/uL High [facility] RBC (Bld) [#/Vol] 4.08 10*6/uL [facility] ealth WBC (Bld) [#/Vol] 12.23 10*3/uL [facility] EKGon 03-31-2022 Ordered by an unspecified provider. [facility] Glucose (Bld) [Mass/Vol]on 0 03-31-2022 Glucose [Mass/Vol] 119 mg/dL High 65 - 99 mg/dL [facility] Interpretation and review of laboratory results Abnormal [facility] Glucose [Mass/Vol] 113 mg/dL High 65 - 99 mg/dL [facility] Interpretation and review of laboratory results Abnormal [facility] Glucose [Mass/Vol] 121 mg/dL High 65 - 99 mg/dL [facility] Interpretation and review of laboratory results Abnormal [facility] Glucose [Mass/Vol] 114 mg/dL High 65 - 99 mg/dL [facility] Interpretation and review of laboratory results Abnormal [facility] Magnesium Levelon 03-31-2022 Magnesium [Mass/Vol] 1.9 mg/dL 1.6 - 2 .4 mg/dL [facility] Magnesium [Mass/Vol]on 03-31 Interpretation and review of laboratory results Normal [facility] Phosphate [Mass/Vol]on 03-31 Interpretation and review of laboratory results Abnormal [facility] Phosphoruson 05-26-2022 Phosphate [Mass/Vol] 5.2 mg/dL High 2.8 - 4 .1 mg/dL [facility] Troponin OnceOrdered By: Ana Win on 03-31-2022 Delta Difference Troponin T 1 ng/L < = -/+ 7 change [facility] Interp Troponin T Delta Change Probable non-acute cardiac injury or late presentation of acute injury. [facility] Interpretation and review of laboratory results Abnormal [facility] Troponin T 33 ng/L Critically high NINF - 14 ng/L [facility] XR Chest AP/PA and LATon 1. No active pulmonary disease. Workstation ID: [id number] [employer] EXAMINATION: TWO XRAY VIEWS OF THE CHEST [...] are noted. There are scattered calcified granulomas. [facility] Magdy Mcintosh MD - 03/31/2022 EXAMINATION: [...] No active pulmonary disease. Workstation ID: [id number] [facility] Radiology Study observation (narrative) [facility] X[facility] Chest AP/PA and LATOrdere d By: Magdy Mcintosh on 03-31-2022 [facility] Work Phone: APTTon 03-30-2022 aPTT Coag (Bld) [Time] 33 s [facility] Blood type and Indirect anti body screen panel (Bld)on 03-30-2022 ABO and Rh group Nom (Bld) Blood group A Rh(D) positive [facility] Blood group antibody screen Ql Negative [facility] Specimen Expires 04/02/2022 23:59 EST [facility] Glucose (Bld) [Mass/Vol]on 0 03-30-2022 Glucose [Mass/Vol] 105 mg/dL High 65 - 99 mg/dL [facility] Interpretation and review of laboratory results Abnormal [facility] Glucose [Mass/Vol] 131 mg/dL High 65 - 99 mg/dL [facility] Interpretation and review of laboratory results Abnormal [facility] Glucose [Mass/Vol] 145 mg/dL High 65 - 99 mg/dL [facility] Interpretation and review of laboratory results Abnormal [facility] Troponin OnceOrdered By: Hong Davison on 03-30-2022 Interpretation and review of laboratory results Abnormal [facility] Troponin T 32 ng/L Critically high NINF - 14 ng/L [facility] Troponin T Interpretation Possible acute cardiac injury. [facility] aPTT Coag (Bld) [Time]on Interpretation and review of laboratory results Normal [facility] Therapeutic range fo r APTT's is 68 - 104 seconds [facility] No Panel Informationon 12-30 6 min walk [...] 109 O2 2 lpm [facility] P[facility] HGB + HCTon 07-05-2021 Hematocrit (Bld) [Volume fraction] 35.9 % Low 36.0 - 46.0 [facility] Comment on above: Performed By: #### H H #### [address] [address] Hemoglobin (Bld) [Mass/Vol] 11.3 g/dL Low 12.0 - 16.0 [facility] Comment on above: Performed By: #### H H #### [address] [address] RENAL FUNCTION PANELon 07-05 Albumin [Mass/Vol] 4.0 g/dL Normal 3.4 - 5.0 [facility] Comment on above: Performed By: #### R ENAL #### [address] [address] Anion gap [Moles/Vol] 11 mmol/L Normal 10 - 20 [facility] Comment on above: Performed By: #### R ENAL #### [address] [address] Calcium [Mass/Vol] 8.8 mg/dL Normal 8.6 - 10.3 [facility] Comment on above: Performed By: #### R ENAL #### [address] [address] Chloride [Moles/Vol] 103 mmol/L Normal 98 - 107 [facility] Comment on above: Performed By: #### R ENAL #### [address] [address] Creatinine [Mass/Vol] 1.28 mg/dL High 0.50 - 1.05 [facility] Comment on above: Performed By: #### R ENAL #### [address] [address] GFR- AM. 51 mL/min/1.73m2 Abnormal >60 [facility] Comment on above: Result Comment: CALC ULATIONS OF ESTIMATED GFR ARE PERFORMED USING THE MDRD STUDY EQUATION FOR THE IDMS-TRACEABLE CREATININE METHODS. CLIN CHEM 2007;53:766-72 Performed By: #### R ENAL #### [address] [address] GFR-NON AM. 42 mL/min/1.73m2 Abnormal >60 [facility] Comment on above: Performed By: #### R ENAL #### [address] [address] Glucose [Mass/Vol] 97 mg/dL Normal 74 - 99 [facility] Comment on above: Performed By: #### R ENAL #### [address] [address] HCO3 (Bld) [Moles/Vol] 27 mmol/L Normal 21 - 32 [facility] Comment on above: Performed By: #### R ENAL #### [address] [address] Phosphate [Mass/Vol] 4.0 mg/dL Normal 2.5 - 4.9 [facility] Comment on above: Result Comment: The performance characteristics of phosphorus testing in heparinized plasma have been validated by the individual laboratory site where testing is performed. Testing on heparinized plasma is not approved by the FDA; however, such approval is not necessary. Performed By: #### R ENAL #### [address] [address] Potassium [Moles/Vol] 4.8 mmol/L Normal 3.5 - 5.3 [facility] Comment on above: Performed By: #### R ENAL #### [address] [address] Sodium [Moles/Vol] 136 mmol/L Normal 136 - 145 [facility] Comment on above: Performed By: #### R ENAL #### [address] [address] Urea nitrogen [Mass/Vol] 32 mg/dL High 6 - 23 [facility] Comment on above: Performed By: #### R ENAL #### [address] [address] TOTAL PROTEIN, URINE SPOTon 07-05-2021 CREATININE,URINE 37.0 mg/dL Normal 20.0 - 320.0 [facility] Comment on above: Performed By: #### T PS2 #### [address] [address] T. PROTEIN/CREAT RATIO 0.32 mg/mg Creat High 0.00 - 0.17 [facility] Comment on above: Performed By: #### T PS2 #### [address] [address] TOTAL PROT,URINE SPOT 12 mg/dL Normal 5 - 24 [facility] Comment on above: Performed By: #### T PS2 #### [address] [address] KAPPA/LAMBDA FREE LIGHT Aaron VILLA 06-20-2021 FREE KAPPA LIGHT CHAINS,S 5.60 mg/dL High 0.33 - 1.94 [facility] Comment on above: Performed By: #### K STEWART #### [facility] [address] [place] [address] FREE KAPPA/LAMBDA RATIO,S 1.19 Normal 0.26 - 1.65 [facility] Comment on above: Result Comment: Unde tected [...] laboratory. Performed By: #### K STEWART #### [facility] [address] [place] [address] FREE LAMBDA LIGHT CHAIN,S 4.72 mg/dL High 0.57 - 2.63 [facility] Comment on above: Performed By: #### K STEWART #### [facility] [address] [place] [address] CBCon 06-18-2021 Erythrocyte distribution width (RBC) [Ratio] 18.8 % High 11.5 - 14.5 [facility] Comment on above: Performed By: #### C BC #### [address] [address] Hematocrit (Bld) [Volume fraction] 35.3 % Low 36.0 - 46.0 [facility] Comment on above: Performed By: #### C BC #### [address] [address] Hemoglobin (Bld) [Mass/Vol] 10.9 g/dL Low 12.0 - 16.0 [facility] Comment on above: Performed By: #### C BC #### [address] [address] MCHC (RBC) [Mass/Vol] 31.0 g/dL Low 32.0 - 36.0 [facility] Comment on above: Performed By: #### C BC #### [address] [address] MCV (RBC) [Entitic vol] 78 fL Low 80 - 100 [facility] Comment on above: Performed By: #### C BC #### [address] [address] Platelets (Bld) [#/Vol] 291 10*3/uL Normal 150 - 450 [facility] Comment on above: Performed By: #### C BC #### [address] [address] RBC 4.49 x10E12/L Normal 4.00 - 5.20 [facility] Comment on above: Performed By: #### C BC #### [address] [address] WBC (Bld) [#/Vol] 7.1 10*3/uL Normal 4.4 - 11.3 [facility] Comment on above: Performed By: #### C BC #### [address] [address] COMPREHENSIVE PANELon 2020 Albumin [Mass/Vol] 3.9 g/dL Normal 3.4 - 5.0 [facility] Comment on above: Performed By: #### C MP #### [address] [address] ALP [Catalytic activity/Vol] 62 U/L Normal 33 - 136 [facility] Comment on above: Performed By: #### C MP #### [address] [address] ALT [Catalytic activity/Vol] 13 U/L Normal 7 - 45 [facility] Comment on above: Result Comment: Michelle ents treated with Sulfasalazine may generate falsely decreased results for ALT. Performed By: #### C MP #### [place] [id number] Anion gap [Moles/Vol] 12 mmol/L Normal 10 - 20 [facility] Comment on above: Performed By: #### C MP #### [address] [address] AST [Catalytic activity/Vol] 14 U/L Normal 9 - 39 [facility] Comment on above: Performed By: #### C MP #### [address] [address] Bilirubin [Mass/Vol] 0.3 mg/dL Normal 0.0 - 1.2 [facility] Comment on above: Performed By: #### C MP #### [address] [address] Calcium [Mass/Vol] 9.0 mg/dL Normal 8.6 - 10.3 [facility] Comment on above: Performed By: #### C MP #### [address] [address] Chloride [Moles/Vol] 101 mmol/L Normal 98 - 107 [facility] Comment on above: Performed By: #### C MP #### [address] [address] Creatinine [Mass/Vol] 1.68 mg/dL High 0.50 - 1.05 [facility] Comment on above: Performed By: #### C MP #### [address] [address] GFR- AM. 38 mL/min/1.73m2 Abnormal >60 [facility] Comment on above: Result Comment: CALC ULATIONS OF ESTIMATED GFR ARE PERFORMED USING THE MDRD STUDY EQUATION FOR THE IDMS-TRACEABLE CREATININE METHODS. CLIN CHEM 2007;53:766-72 Performed By: #### C MP #### [address] [address] GFR-NON AM. 31 mL/min/1.73m2 Abnormal >60 [facility] Comment on above: Performed By: #### C MP #### [address] [address] Glucose [Mass/Vol] 89 mg/dL Normal 74 - 99 [facility] Comment on above: Performed By: #### C MP #### [address] [address] HCO3 (Bld) [Moles/Vol] 24 mmol/L Normal 21 - 32 [facility] Comment on above: Performed By: #### C MP #### [address] [address] Potassium [Moles/Vol] 5.0 mmol/L Normal 3.5 - 5.3 [facility] Comment on above: Performed By: #### C MP #### [address] [address] Protein [Mass/Vol] 7.1 g/dL Normal 6.4 - 8.2 [facility] Comment on above: Performed By: #### C MP #### [address] [address] Sodium [Moles/Vol] 132 mmol/L Low 136 - 145 [facility] Comment on above: Performed By: #### C MP #### [address] [address] Urea nitrogen [Mass/Vol] 45 mg/dL High 6 - 23 [facility] Comment on above: Performed By: #### C MP #### [address] [address] FOLATE, SERUMon 06-18-2021 Folate [Mass/Vol] 11.9 ng/mL Normal >5.0 [facility] Comment on above: Result Comment: Low <3.4 Borderline 3.4-5.0 Normal >5.0 . Patients receiving more than 5 mg/day of biotin may have interference in test results. A sample should be taken no sooner than eight hours after previous dose. Contact the testing laboratory for additional information. Performed By: #### F OLA2 #### [address] [address] TSHon 06-18-2021 TSH Qn 1.76 m[IU]/L Normal 0.44 - 3.98 [facility] Comment on above: Result Comment: TSH testing is performed using different testing methodology at [facility] than at other [facility]. Direct result comparisons should only be made within the same method. Performed By: #### T SH2 #### [address] [address] VITAMIN B12on 06-18-2021 Cobalamin (Vitamin B12) [Mass/Vol] 467 pg/mL Normal 211 - 911 [facility] Comment on above: Performed By: #### V TB12 #### [address] [address] PT Progress Noteon PT Progress Note Therapy [...] secs on/20 off with lbs as tolerated. MOLDER APPRENTICE can also manual distraction and soft tissue [...] with pain, flexion chin to chest MMT: [facility] PALPATION: defer (more content not included)... Normal [facility] Basic metabolic 2000 panelOr dered By: Georgie Vázquez on 04-14-2021 Anion gap [Moles/Vol] 12 mmol/L 10 - 2 0 mmol/L [facility] Calcium [Mass/Vol] 9.2 mg/dL 8.4 - 10. 2 mg/dL [facility] Chloride [Moles/Vol] 104 mmol/L 98 - 10 8 mmol/L [facility] Creatinine [Mass/Vol] 1.77 mg/dL High 0.60 - 1.20 [facility] GFR/1.73 sq M.predicted CKD-EPI (S/P/Bld) [Vol rate/Area] 30 Low >=60 mL/min/1.73 m2 [facility] Glucose [Mass/Vol] 112 mg/dL High 65 - 99 mg/dL [facility] HCO3 [Moles/Vol] 25 mmol/L 21 - 32 mmol/L [facility] Potassium [Moles/Vol] 4.8 mmol/L 3.5 - 5.1 mmol/L [facility] Sodium [Moles/Vol] 136 mmol/L 135 - 145 mmol/L [facility] Urea nitrogen [Mass/Vol] 35 mg/dL High 8 - 25 mg/dL [facility] Urea nitrogen/Creatinine [Mass ratio] 19.8 mg/mg [facility] The eGFR should be u sed for monitoring renal function only and not for medication dosing. [facility] CBC WITH AUTO DIFFERENTIALOr dered By: Georgie Vázquez on 04-14-2021 Basophils (Bld) [#/Vol] 0.07 10*3/uL [facility] Basophils/100 WBC (Bld) 1.0 % [facility] Eosinophils (Bld) [#/Vol] 0.12 10*3/uL [facility] Eosinophils/100 WBC (Bld) 1.6 % [facility] Erythrocyte distribution width (RBC) [Entitic vol] 17.5 % High 11.6 - 14.8 % [facility] Hematocrit (Bld) [Volume fraction] 39.6 % 36.0 - 46.0 % [facility] Hemoglobin (Bld) [Mass/Vol] 12.0 g/dL 12.0 - 16.0 g/dL [facility] Immature granulocytes (Bld) [#/Vol] 0.02 10*3/uL [facility] Immature granulocytes/100 WBC (Bld) 0.30 % [facility] Comment on above: The IG parameter is the percentage of metamyelocytes, myelocytes and promyelocytes. An immature granulocyte count (IG) of 1% or more suggests the possibility of infection, an IG count of 3% is very likely related to an infection. Interpretation and review of laboratory results Abnormal [facility] Lymphocytes (Bld) [#/Vol] 1.44 10*3/uL [facility] [facility] Lymphocytes/100 WBC (Bld) 19.6 % [facility] MCH (RBC) [Entitic mass] 24.0 pg Low 26.0 - 34.0 pg [facility] MCHC (RBC) [Mass/Vol] 30.3 g/dL Low 31.0 - 37.0 g/dL [facility] MCV (RBC) [Entitic vol] 79.4 fL Low 80.0 - 100.0 fL [facility] Monocytes (Bld) [#/Vol] 0.52 10*3/uL [facility] Monocytes/100 WBC (Bld) 7.1 % [facility] Neutrophils (Bld) [#/Vol] 5.16 10*3/uL [facility] Neutrophils/100 WBC (Bld) 70.4 % [facility] Nucleated RBC (Bld) [#/Vol] 0.00 10*3/uL [facility] Nucleated RBC/100 WBC (Bld) [Ratio] 0.0 % [facility] Platelet mean volume (Bld) [Entitic vol] 10.9 fL 9.4 - 12.4 fL [facility] Platelets (Bld) [#/Vol] 282 10*3/uL [facility] RBC (Bld) [#/Vol] 4.99 10*6/uL [facility] eah WBC (Bld) [#/Vol] 7.33 10*3/uL [facility] NO MBOrdered By: Georgie Vázquez on 04-14-2021 CK [Catalytic activity/Vol] 1936 U/L High 40 - 170 U/L [facility] Gold TopOrdered By: Georgie carey on 04-14-2021 Extra Tube Hold for add-ons. [facility] Comment on above: Auto resulted. [facility] Magnesium LevelOrdered By: Damari Vázquez on 04-14-2021 Magnesium [Mass/Vol] 2.2 mg/dL 1.6 - 2 .4 mg/dL [facility] Magnesium [Mass/Vol]Ordered By: Georgie Vázquez on 04-14-2021 [facility] No Panel InformationOrdered By: Georgie Vázquez on 04-14-2021 Extra Tube Hold for add-ons. [facility] Comment on above: Auto resulted. [facility] Extra Tube Hold for add-ons. [facility] Comment on above: Auto resulted. [facility] Interpretation and review of laboratory results Abnormal [facility] Interpretation and review of laboratory results Normal [facility] PhosphorusOrdered By: Georgie Vázquez on 04-14-2021 Phosphate [Mass/Vol] 3.5 mg/dL 2.8 - 4 .1 mg/dL [facility] Therapy Communicationon Therapy Communication Message RAHDA SHAFER no showed today . No voicemail set up. Signatures Electronically signed by : Anjana Hernandez PTA; Apr 14 2021 4:45PM EST (Author) [facility] URINALYSISOrdered By: Georgie Vázquez on 04-14-2021 Bacteria Auto Ql (U) None Seen None Se en /hpf [facility] Clarity Refractometry automated (U) Clear Clear [facility] Color (U) Yellow Colorless, Yellow [facility] Glucose Auto test strip (U) [Mass/Vol] Negative Negative mg/dL [facility] Ketones (U) [Mass/Vol] Negative Negat radha mg/dL [facility] Leukocyte esterase Auto test strip Ql (U) Negative Negative [facility] pH (U) 5.5 [pH] [facility] Specific gravity (U) [Rel density] 1.014 [facility] UrinalysisOrdered By: Georgie Vázquez on 04-14-2021 Bilirubin Ql (U) Negative Negative [facility] th Epithelial cells.squamous Auto (Urine sed) [#/Area] <1 [facility] Hemoglobin Auto test strip Ql (U) Small Abnormal Negative [facility] Interpretation and review of laboratory results Abnormal [facility] Mucus Auto (Urine sed) [#/Area] Rare None Seen, Rare /lpf [facility] Nitrite Auto test strip Ql (U) Negative Negative [facility] Protein (U) [Mass/Vol] 30 mg/dL Abnormal Negat radha mg/dL [facility] Comment on above: False positive resul ts may occur in urines with large amounts of hemoglobin, pH greater than 8.0, contrast medium, or disinfectants including ammonium compounds. Urobilinogen (U) [Mass/Vol] mg/dL <2.0 mg/dL [facility] WBC Auto (Urine sed) [#/Area] 1 [facility] Microscopic examinat ion is performed on all urinalysis samples and only positive findings are reported. The test for blood on the chemical analytic portion of urinalysis may also be positive due to hemoglobinuria and myoglobinuria and if red blood cells are present they are quantified by microscopic examination. [facility] Therapy Communicationon Therapy Communication Message RADHA SHAFER [...] secs on/20 off with lbs as tolerated. MOLDER APPRENTICE can also manual distraction and soft tissue [...] code time is 50 minutes. Therapeutic exercise (66906): timed minutes 25, units 2 . UBE L2 3'fwd/3''bwd scap retraction 2x10 (X) bwd shoulder rolls 2x10 (X) UT stretch 20 x2 B (X) LS stretch 20 x2B (X) chin tucks supine 2x10 3 hold cervical rotation supine x10 each supine B ER pull aparts orange x10 (X) supine B H abd pull aparts orange x10 (X). Manual Therapy (98725): timed minutes 10, units 1 . STW to B UT, LS, SCM, paraspinals. Modalities: untimed minutes 15, units 1 . Intermittent Mechanical Traction: 20#/10# on 30/10 cycle x 15 mins 6step progressive/regressive. 'Scores and Scales' Signatures Electronically signed by : Eli Alexander MOLDER APPRENTICE; Apr 09 2021 4:58PM EST (Author) Electronically [...] secs on/20 off with lbs as tolerated. MOLDER APPRENTICE can also manual distraction and soft tissue [...] Patient continues to present with cervical tightness/restriction, MOLDER APPRENTICE notes palpable increase in tissue density throughout [...] in clinic is 58 minutes. Therapeutic exercise (87804): timed minutes 30, units 2 . UBE L2 2'fwd/2'bwd scap retraction 2x10 bwd shoulder rolls 2x10 UT stretch 20 x2 B LS stretch 20 x2B chin tucks supine 2x10 3 hold cervical rotation supine x10 each supine B ER pull aparts orange x10 supine B H abd pull aparts orange x10. Manual Therapy (06395): timed minutes 10, units 1 . STW to B UT, LS, SCM, paraspinals. Modalities: untimed minutes 15, units 1 . Intermittent Mechanical Traction: 20#/10# on 30/10 cycle x 15 mins 6step progressive/regressive. 'Scores and Scales' Signatures Electronically signed by : River Sweeney PTA; Apr 01 2021 7:45AM EST (Author) Electronically signed by : Elana Westbrook PT; Apr 06 2021 3:40PM EST [facility] Therapy Communicationon 03-07 Therapy Communication Message RADHA HOLLIS canceled today . Signatures Electronically signed by : Anjana Hernandez PTA; Mar 29 2021 2:14PM EST (Author) [facility] PT Progress Noteon PT Progress Note Therapy [...] secs on/20 off with lbs as tolerated. MOLDER APPRENTICE can also manual distraction and soft tissue [...] code time is 40 minutes. Therapeutic exercise (98094): timed minutes 30, units 2 . UBE L2 2'fwd/2'bwd scap retraction 2x10 bwd shoulder rolls 2x10 UT stretch 20 x2 B LS stretch 20 x2B chin tucks supine 2x10 3 hold cervical rotation supine x5 each supine B ER pull aparts orange x10 supine B H abd pull aparts orange x10. Manual Therapy (45246): timed minutes 10, units 1 . STW to B UT, LS, SCM, paraspinals. Modalities: untimed minutes 15, units 1 . Intermittent Mechanical Traction: 20#/10# on 30/10 cycle x 15 mins 6step progressive/regressive. 'Scores and Scales' Signatures Electronically signed by : River Sweeney MOLDER APPRENTICE; Mar 26 2021 4:31PM EST (Author) Electronically signed by : Elana Westbrook, PT; Mar 31 2021 11:38AM EST [facility] Progress Noteon 1 PT Progress Note [...] secs on/20 off with lbs as tolerated. MOLDER APPRENTICE can also manual distraction and soft tissue [...] code time is 38 minutes. Therapeutic exercise (24788): timed minutes 30, units 2 . UBE L2 2'fwd/2'bwd scap retraction 2x10 bwd shoulder rolls 2x10 UT stretch 20 x2 B LS stretch 20 x2B chin tucks supine 2x10 3 hold cervical rotation supine x5 each supine B ER pull aparts orange x10 supine B H abd pull aparts orange x10. Manual Therapy (44676): timed minutes 8, units 1 . STW to B UT, LS, SCM, paraspinals. Modalities: untimed minutes 14, units 1 . mechanical traction intermittent with 30 secs on/20 off with 20 lbs , 2 step, 50% rope speed. 'Scores and Scales' Signatures Electronically signed by : Anjana Hernandez MOLDER APPRENTICE; Mar 24 2021 5:37PM EST (Author) Electronically signed by : Elana Westbrook, PT; Mar 31 2021 11:38AM EST [facility] PT Initial Evaluationon 03-06 PT Initial Evaluation [...] secs on/20 off with lbs as tolerated. MOLDER APPRENTICE can also manual distraction and soft tissue [...] aren't converted (more content not included)... [facility] Therapy Communicationon 11-07 Therapy Communication Message RADHA SHAFER was (D/C)- last seen: . eval only-patient never called back to schedule, a VM was left at 1022am on 10-20-20. Will discharge at this tiem. Signatures Electronically signed by : Elana Westbrook PT; Nov 25 2020 7:37AM EST (Author) [facility] [place] ORT LARGE JOINT ARTHROCEN TESISon 11-09-2020 John Marcial NP 11/09/2020 10:32 AM LG Jt Injection/Arthrocentesi s: R knee Performed by: Flori Rodrigues CNP Authorized by: Flori Rodrigues CNP CPT 31981 - Large Joint Arthrocentesis: Consent given by: [...] the procedure well with no immediate complications [facility] XR Knee Right 4+VWS (Note in Comments)on 11-09-2020 No acute right knee abnormality. Degenerative joint disease findings are present. Previous left knee replacement is noted. [email or web address] Workstation ID: [id number] [facility] EXAMINATION: XR KNEE RIGHT 4+ VIEWS [...] replacement is noted without evidence displacement disruption. [facility] Interface, Rad In Fu ji Speechq [...] replacement is noted. RWA/ges Workstation ID: [id number] [facility] XR Knee Right 2 Views (Stand madeleine)on 11-02-2020 FINDINGS/ 1. Moderat e medial and patellofemoral compartment and mild lateral compartment osteoarthrosis is noted in the right knee, with joint space narrowing and small marginal osteophytes. Superior patellar enthesophyte is noted. 2. No fracture, malalignment, or other acute bony abnormality is seen. 3. Small right knee joint effusion is suspected. Workstation ID: [id number] [facility] EXAMINATION: XR KNEE RIGHT 2 VIEWS (STANDARD) 11/02/2020 1:48 pm HISTORY: ORDERING SYSTEM PROVIDED HISTORY: pain, TECHNOLOGIST PROVIDED HISTORY: Illness/Other Reason for exam: Right knee pain x 5 days Cancer History: thyroid Surgery, RadiationHistory: bilateral thyroidectomy Encounter Type: Initial Additional signs and symptoms: No known injury ORDERING SYSTEM PROVIDED DIAGNOSIS CODES: COMPARISON: 06/09/2013 [facility], [facility] - 11/02/2020 2:04 PM EST EXAMINATION: XR [...] joint effusion is suspected. Workstation ID: [id number] [facility] PT Initial Evaluationon PT Initial Evaluation [...] [facility] [place] ORT LARGE JOINT ARTHROCEN [facility] 09-15-2020 Rivas Jules MD 09/15/2020 3:06 PM LG Jt Injection/Arthrocentesi s: R subacromial bursa Performed by: Rivas Jules MD Authorized by: Rivas Jules MD CPT 19769 - Large Joint Arthrocentesis: Consent given by: Patient Timeout performed at: 09/15/2020 3:05 PM Physician or proceduralist has discussed critical or nonroutine steps, procedure duration and anticipated blood loss: Yes Supporting Documentation: Indications: Pain Procedure Details: Location: Shoulder Site: R subacromial bursa Needle size: 22 G Medications: 40 mg methylPREDNISolone acetate 40 mg/mL Anesthetic used: Lidocaine 1% [facility] XR Shoulder Right 1 Viewon 1 11-15-2019 Postsurgical and degenerative changes without acute osseous abnormality. Workstation ID: [id number] [facility] EXAMINATION: XR SHOULDER RIGHT 1 VIEW [...] subacromial spur. Calcifications overlie the right hemithorax. [facility] Interface, Rad In Fu ji Speechq [...] without acute osseous abnormality. Workstation ID: [id number] [facility] Ultrasound ankle / brachial indices extremity completeon 05-15-2020 Patient Info Name: RADHA SHAFER Age: 60 years : 1960 Gender: Female Exam Date: 05/15/2020 2:11 PM Site Location: [facility] Patient Status: Outpatient Staff Ordering Physician: ELANA PENA Manufacturing Lead: Kia Peacock RVT Referring Physician: ELANA PENA ; Indications I73.9 - Peripheral vascular disease, unspecified Procedure Description 09077 Limited bilateral noninvasive physiologic studies of upper [...] Jacobsen MD, RPVI on 05/15/2020 05:02 PM [facility] Interface, Rad In Heartlab Xper [facility] - 05/15/2020 5:03 PM EDT Patient Info Name: RADHA SHAFER Age: 60 years : 1960 Gender: Female Exam Date: 05/15/2020 2:11 PM Site Location: [facility] Patient Status: Outpatient Staff Ordering Physician: ELANA PENA Manufacturing Lead: Kia Peacock RVT Referring Physician: ELANA PENA ; Indications I73.9 - Peripheral vascular disease, unspecified Procedure Description 51173 Limited bilateral noninvasive physiologic studies of upper [...] Jacobsen MD, RPVI on 05/15/2020 05:02 PM [facility] XR Foot 3+ Views Righton XR Foot 3+ Views Right Exam Date/Time: 07/24/2019 16:05 EDT Reason for Exam: pain in right foot Report STUDY: XR Foot 3+ Views Right; 07/24/2019 4:05 pm INDICATION: pain in right foot. COMPARISON: None. ACCESSION NUMBER(S): [id number] ORDERING CLINICIAN: Rusty Dozier TECHNIQUE: Three views [...] Signed by: Uriah Elizalde MD Technologist: VINNY [facility] ECHOCARDIOGRAM COMPLETEon Transthoracic Echocardiogram _ Patient: HOLLIS Benitez [facility] Rec#: [id number] (Age): 1960(59y) Height: 165.1(cm)/64(in Study Date: 05/07/2019 Weight: 93.44(kg)/206(l Room#: MOB BSA: [id number] Type: Outpatient Loc: Echo Room 1 Sex: F _ Reading: Eleonora Sawyer MD Referring: WHITLEY Kaufman M.D. Manufacturing Lead: Rina Shay RN, [facility] History: Cancer. -thyroidCOPD. Hypertension. Hypothyroidism. Renal [...] at 05/07/2019 16:22:37 by: Eleonora Sawyer MD [facility] Interface, Rad In Heartlab Xper [facility] - 05/07/2019 4:40 PM EDT Transthoracic Echocardiogram _ Patient: HOLLIS Benitez [facility] Rec#: [id number] (Age): 1960(59y) Height: 165.1(cm)/64(in Study Date: 05/07/2019 Weight: 93.44(kg)/206(l Room#: MOB BSA: [id number] Type: Outpatient Loc: Echo Room 1 Sex: F _ Reading: Eleonora Sawyer MD Referring: WHITLEY Kaufman M.D. Manufacturing Lead: Rina Shay RN, [facility] History: Cancer. -thyroidCOPD. Hypertension. Hypothyroidism. Renal [...] at 05/07/2019 16:22:37 by: Eleonora Sawyer MD [facility] Otheron 05-07-2019 Extra Tube Hold for add-ons. [facility] Comment on above: Auto resulted. ECG 12-LEADon 04-05-2019 Atrial Rate [facility] P Fowler [facility] P-R Interval [facility] Q-T Interval [facility] Q-T Interval (corrected) [facility] QRS Duration [facility] QTC Calculation (Bezet) [facility] R Fowler [facility] T Fowler [facility] Ventricular Rate [facility] th Albuminon 02-13-2019 Albumin [Mass/Vol] 4.0 g/dL Normal 3.4-5.0 [facility] Comment on above: Performed By: #### 2 [id number] #### BRE[facility] [address] [place] [address] BUNon 02-13-2019 Urea nitrogen [Mass/Vol] 23 mg/dL Normal 6-23 [facility] Comment on above: Performed By: #### 2 [id number] #### [facility] [address] [place] [address] Calciumon 02-13-2019 Calcium [Mass/Vol] 9.1 mg/dL Normal 8.6-10.3 [facility] Comment on above: Performed By: #### 2 [id number] #### [facility] [address] [place] [address] Creatinineon 02-13-2019 Creatinine [Mass/Vol] 1.4 mg/dL High 0.5-1.1 [facility] Comment on above: Performed By: #### 2 [id number] #### [facility] [address] [place] [address] Hct & Hgbon 02-13-2019 Hematocrit (Bld) [Volume fraction] 38.3 % Normal 36.0-48.0 [facility] Comment on above: Performed By: #### 1 [id number] #### [facility] [address] [place] [address] Hemoglobin (Bld) [Mass/Vol] 12.1 g/dL Normal 12.0-16.0 [facility] Comment on above: Performed By: #### 1 [id number] #### [facility] [address] [place] [address] Lyteson 02-13-2019 Anion gap [Moles/Vol] 11 mmol/L Normal 10-20 [facility] Comment on above: Performed By: #### 2 [id number] #### [facility] [address] [place] [address] Chloride [Moles/Vol] 103 mmol/L Normal 98-[address] [facility] Comment on above: Performed By: #### 2 [id number] #### [facility] [address] [place] [address] CO2 [Moles/Vol] 28.0 mmol/L Normal 21.0-32.0 [facility] Comment on above: Performed By: #### 2 [id number] #### [facility] [address] [place] [address] Potassium [Moles/Vol] 4.8 mmol/L Normal 3.5-5.3 [facility] Comment on above: Performed By: #### 2 [id number] #### [facility] [address] [place] [address] Sodium [Moles/Vol] 137 mmol/L Normal 136-145 [facility] Comment on above: Performed By: #### 2 [id number] #### [facility] [address] [place] [address] Phosphoruson 02-13-2019 Phosphate [Mass/Vol] 4.0 mg/dL Normal 2.5-4.[address] [facility] Comment on above: Performed By: #### 2 [id number] #### [facility] [address] [place] [address] U Creatinineon 02-13-2019 U Creatinine 39 mg/dL Normal 20-300 [facility] Comment on above: Performed By: #### 2 [id number] #### [facility] [address] [place] [address] U Proteinon 02-13-2019 Protein [Mass/Vol] 18 mg/dL High 1-14 [facility] Comment on above: Performed By: #### 1 [id number] #### [facility] [address] [place] [address] eGFRon 02-13-2019 GFR/1.73 sq M predicted among non-blacks MDRD (S/P/Bld) [Vol rate/Area] 45 mL/min/1.73 m2 [facility] Comment on above: Order Comment: Order added by Discern Expert. Performed By: #### 1 [id number] #### [facility] [address] [place] [address] GFR/1.73 sq M predicted among non-blacks MDRD (S/P/Bld) [Vol rate/Area] 37 mL/min/1.73 m2 [facility] Comment on above: Order Comment: Order added by Discern Expert. Performed By: #### 1 [id number] #### [facility] [place] [address] XR Hip 2-3 Views Right + Pel vison 01-24-2019 XR Hip 2-3 Views Right + Pelvis Exam Date/Time: 01/23/2019 13:20 EDT Reason for Exam: pain in right hip Report STUDY: XR Hip 2-3 Views Right + Pelvis;; 01/23/2019 1:20 pm INDICATION: pain in right hip. COMPARISON: None. ACCESSION NUMBER(S): [id number] ORDERING CLINICIAN: Rusty Dozier FINDINGS: Pelvis and [...] by: Jair Santos MD Technologist: DAVEY Normal [facility] Comprehensive Metabolic Pane jett 12-01-2018 Albumin mass conc 3.0 g/dL Low 3.2-5.2 [facility] Comment on above: Performed By: #### C BCWOD, PT, PTT, DDIMR, EDCTNI, NTPROBNP, CHEM8, LIPASE, CMETADD #### Unless otherwise noted, all testing performed by [place] [address] CLIA: [id number] Front Desk Host: Maurice Coello M.D. ALP enzyme act/vol 88 U/L Normal 40-150 [facility] Comment on above: Performed By: #### C BCWOD, PT, PTT, DDIMR, EDCTNI, NTPROBNP, CHEM8, LIPASE, CMETADD #### Unless otherwise noted, all testing performed by [place] [address] CLIA: [id number] Front Desk Host: Maurice Coello M.D. ALT enzyme act/vol 34 U/L Normal 14-65 [facility] Comment on above: Result Comment: This test result might be falsely depressed or falsely elevated on samples drawn from patients taking Sulfasalazine and Sulfapyridine. Venipuncture should occur prior to taking either of these drugs. Performed By: #### C BCWOD, PT, PTT, DDIMR, EDCTNI, NTPROBNP, CHEM8, LIPASE, CMETADD #### Unless otherwise noted, all testing performed by [place] [address] CLIA: [id number] Front Desk Host: Maurice Coello M.D. AST enzyme act/vol 67 U/L High 0-45 [facility] Comment on above: Result Comment: This test result might be falsely depressed or falsely elevated on samples drawn from patients taking Sulfasalazine and Sulfapyridine. Venipuncture should occur prior to taking either of these drugs. Performed By: #### C BCWOD, PT, PTT, DDIMR, EDCTNI, NTPROBNP, CHEM8, LIPASE, CMETADD #### Unless otherwise noted, all testing performed by [place] [address] CLIA: [id number] Front Desk Host: Maurice Coello M.D. Bilirubin mass conc 0.3 mg/dL Normal 0.3-1.2 [facility] Comment on above: Performed By: #### C BCWOD, PT, PTT, DDIMR, EDCTNI, NTPROBNP, CHEM8, LIPASE, CMETADD #### Unless otherwise noted, all testing performed by [place] [address] CLIA: [id number] Front Desk Host: Maurice Coello M.D. Calcium mass conc 8.6 mg/dL Normal 8.4-10.2 [facility] Comment on above: Performed By: #### C BCWOD, PT, PTT, DDIMR, EDCTNI, NTPROBNP, CHEM8, LIPASE, CMETADD #### Unless otherwise noted, all testing performed by [place] [address] CLIA: [id number] Front Desk Host: Maurice Coello M.D. Chloride molar conc 112 mmol/L High 98-108 [facility] Comment on above: Performed By: #### C BCWOD, PT, PTT, DDIMR, EDCTNI, NTPROBNP, CHEM8, LIPASE, CMETADD #### Unless otherwise noted, all testing performed by [place] [address] CLIA: [id number] Front Desk Host: Maurice Coello M.D. CO2 molar conc 21 mmol/L Normal 21-32 [facility] Comment on above: Performed By: #### C BCWOD, PT, PTT, DDIMR, EDCTNI, NTPROBNP, CHEM8, LIPASE, CMETADD #### Unless otherwise noted, all testing performed by [place] [address] CLIA: [id number] Front Desk Host: Maurice Coello M.D. Creatinine mass conc 1.28 mg/dL High 0.40-1.10 [facility] Comment on above: Performed By: #### C BCWOD, PT, PTT, DDIMR, EDCTNI, NTPROBNP, CHEM8, LIPASE, CMETADD #### Unless otherwise noted, all testing performed by [place] [address] CLIA: [id number] Front Desk Host: Maurice Coello M.D. GFR/1.73 sq M predicted among blacks MDRD vol rate/area (S/P/Bld) 51 mL/min/{1.73_m2} Low >60 [facility] Comment on above: Result Comment: Afri can [place] GFR Calc Performed By: #### C BCWOD, PT, PTT, DDIMR, EDCTNI, NTPROBNP, CHEM8, LIPASE, CMETADD #### Unless otherwise noted, all testing performed by [place] [address] CLIA: [id number] Front Desk Host: Maurice Coello M.D. GFR/1.73 sq M predicted among non-blacks MDRD vol rate/area (S/P/Bld) 42 mL/min/{1.73_m2} Low >60 [facility] Comment on above: Result Comment: Non- GFR [...] Unless otherwise noted, all testing performed by [place] [address] CLIA: [id number] Front Desk Host: Maurice Coello M.D. Glucose mass conc 88 mg/dL Normal 70-99 [facility] Comment on above: Result Comment: This test result might be falsely depressed or falsely elevated on samples drawn from patients taking Sulfasalazine and Sulfapyridine. Venipuncture should occur prior to taking either of these drugs. Performed By: #### C BCWOD, PT, PTT, DDIMR, EDCTNI, NTPROBNP, CHEM8, LIPASE, CMETADD #### Unless otherwise noted, all testing performed by [place] [phone] CLIA: [id number] Front Desk Host: Maurice Coello M.D. Potassium molar conc 4.0 mmol/L Normal 3.5-5.1 [facility] Comment on above: Performed By: #### C BCWOD, PT, PTT, DDIMR, EDCTNI, NTPROBNP, CHEM8, LIPASE, CMETADD #### Unless otherwise noted, all testing performed by [place] [address] CLIA: [id number] Front Desk Host: Maurice Coello M.D. Protein mass conc 7.0 g/dL Normal 6.0-8.0 [facility] Comment on above: Performed By: #### C BCWOD, PT, PTT, DDIMR, EDCTNI, NTPROBNP, CHEM8, LIPASE, CMETADD #### Unless otherwise noted, all testing performed by [place] [address] CLIA: [id number] Front Desk Host: Maurice Coello M.D. Sodium molar conc 139 mmol/L Normal 135-145 [facility] Comment on above: Performed By: #### C BCWOD, PT, PTT, DDIMR, EDCTNI, NTPROBNP, CHEM8, LIPASE, CMETADD #### Unless otherwise noted, all testing performed by [place] [address] CLIA: [id number] Front Desk Host: Maurice Coello M.D. Urea nitrogen mass conc 7 mg/dL Low 8-25 [facility] Comment on above: Performed By: #### C BCWOD, PT, PTT, DDIMR, EDCTNI, NTPROBNP, CHEM8, LIPASE, CMETADD #### Unless otherwise noted, all testing performed by [place] [address] CLIA: [id number] Front Desk Host: Maurice Coello M.D. BUN and Creatinineon 019 Creatinine mass conc 1.44 mg/dL High 0.40-1.10 [facility] Comment on above: Performed By: #### C BCWOD, PT, PTT, DDIMR, EDCTNI, NTPROBNP, CHEM8, LIPASE, CMETADD #### Unless otherwise noted, all testing performed by [place] [address] CLIA: [id number] Front Desk Host: Maurice Coello M.D. GFR/1.73 sq M predicted among blacks MDRD vol rate/area (S/P/Bld) 45 mL/min/{1.73_m2} Low >60 [facility] Comment on above: Result Comment: Afri can [place] GFR Calc Performed By: #### C BCWOD, PT, PTT, DDIMR, EDCTNI, NTPROBNP, CHEM8, LIPASE, CMETADD #### Unless otherwise noted, all testing performed by [place] [id number] CLIA: [id number] Front Desk Host: Maurice Coello M.D. GFR/1.73 sq M predicted among non-blacks MDRD vol rate/area (S/P/Bld) 37 mL/min/{1.73_m2} Low >60 [facility] Comment on above: Result Comment: Non- GFR [...] Unless otherwise noted, all testing performed by [place] [address] CLIA: [id number] Front Desk Host: Maurice Coello M.D. Urea nitrogen mass conc 13 mg/dL Normal 8-25 O [facility] Comment on above: Performed By: #### C BCWOD, PT, PTT, DDIMR, EDCTNI, NTPROBNP, CHEM8, LIPASE, CMETADD #### Unless otherwise noted, all testing performed by [place] [address] CLIA: [id number] Front Desk Host: Maurice Coello M.D. C. difficile Assayon 019 C. difficile interpretation Negative Normal [facility] Comment on above: Result Comment: Rapi d test procedural control acceptable. Performed By: #### C BCWOD, PT, PTT, DDIMR, EDCTNI, NTPROBNP, CHEM8, LIPASE, CMETADD #### Unless otherwise noted, all testing performed by [facility] [address] [place], [place] [address] CLIA: [id number] Front Desk Host: Maurice Coello M.D. CT ABDO,PELVIS W/O CONTRASTo n 11-30-2018 CT ABDO,PELVIS W/O CONTRAST Final Report Accession No: [id number] Performed: Nov 30 2018 11:24AM Examination: [...] Trans: mh : cc: Normal [facility] Culture, Stoolon 11-30-2018 Culture, Stool Test Name: Culture, Stool Culture Status: Final Culture Report: Lack of Normal Dawna Noted. No Salmonella, Shigella, Yersinia, or Campylobacter isolated. Micro Source: Stool Shiga Toxin 1: Insufficient growth to perform test. Shiga Toxin 2: Insufficient growth to perform test. Normal [facility] Comment on above: Performed By: #### C BCWOD, PT, PTT, DDIMR, EDCTNI, NTPROBNP, CHEM8, LIPASE, CMETADD #### Unless otherwise noted, all testing performed by [place] [address] CLIA: [id number] Front Desk Host: Maurice Coello M.D. Gram Stainon 11-30-2018 Microscopic observation Gram stain Nom (Unsp spec) Test Name: Gram Stain Culture Status: Final Gram Stain: No WBC's Many mixed bowel dawna. Normal F [facility] Comment on above: Performed By: #### C BCWOD, PT, PTT, DDIMR, EDCTNI, NTPROBNP, CHEM8, LIPASE, CMETADD #### Unless otherwise noted, all testing performed by [place] [address] CLIA: [id number] Front Desk Host: Maurice Coello M.D. Lactic Acidon 11-30-2018 Lactate molar conc 0.8 mmol/L Normal 0.6-2.0 [facility] Comment on above: Performed By: #### C BCWOD, PT, PTT, DDIMR, EDCTNI, NTPROBNP, CHEM8, LIPASE, CMETADD #### Unless otherwise noted, all testing performed by [place] [address] [address] [place], [place] [address] CLIA: [id number] Front Desk Host: Maurice Coello M.D. Progress Noteon 11-30-2018 Protein mass conc [facility] [address] [place] [id number] NAME RADHA [facility] [id number] 1960 DATE PROGRESS NOTE ORTHOPEDIC PROGRESS NOTE [...] left knee. MD Krzysztof HENDERSON 11/30/2018 12:22 [id number] T 11/30/2018 13:43 MCB/MODL Electronically Signed By Maycol Alvaraod M.D. on 01 Dec 2018 15:44:03 GMT Normal [facility] Specimen Acceptable (CDIF)on 11-30-2018 Specimen Acceptable (CDIF) YES Normal [facility] Comment on above: Result Comment: Trudi perdomo ifficile testing result(s) to follow. Performed By: #### C BCWOD, PT, PTT, DDIMR, EDCTNI, NTPROBNP, CHEM8, LIPASE, CMETADD #### Unless otherwise noted, all testing performed by [place] [address] CLIA: [id number] Front Desk Host: Maurice Coello M.D. BUN and Creatinineon 019 Creatinine mass conc 1.26 mg/dL High 0.40-1.10 [facility] Comment on above: Performed By: #### C BCWOD, PT, PTT, DDIMR, EDCTNI, NTPROBNP, CHEM8, LIPASE, CMETADD #### Unless otherwise noted, all testing performed by [place] [address] CLIA: [id number] Front Desk Host: Maurice Coello M.D. GFR/1.73 sq M predicted among blacks MDRD vol rate/area (S/P/Bld) 52 mL/min/{1.73_m2} Low >60 [facility] Comment on above: Result Comment: Afri can [place] GFR Calc Performed By: #### C BCWOD, PT, PTT, DDIMR, EDCTNI, NTPROBNP, CHEM8, LIPASE, CMETADD #### Unless otherwise noted, all testing performed by [place] [address] CLIA: [id number] Front Desk Host: Maurice Coello M.D. GFR/1.73 sq M predicted among non-blacks MDRD vol rate/area (S/P/Bld) 43 mL/min/{1.73_m2} Low >60 [facility] Comment on above: Result Comment: Non- GFR [...] Unless otherwise noted, all testing performed by [place] [address] CLIA: [id number] Front Desk Host: Maurice Coello M.D. Urea nitrogen mass conc 10 mg/dL Normal 8-25 [facility] Comment on above: Performed By: #### C BCWOD, PT, PTT, DDIMR, EDCTNI, NTPROBNP, CHEM8, LIPASE, CMETADD #### Unless otherwise noted, all testing performed by [place] [address] CLIA: [id number] Front Desk Host: Maurice Coello M.D. CBC with Diffon 11-28-2018 Basophils #/vol (Bld) 0.1 K/mcL Normal 0-0.[address] [facility] Comment on above: Performed By: #### C BCWOD, PT, PTT, DDIMR, EDCTNI, NTPROBNP, CHEM8, LIPASE, CMETADD #### Unless otherwise noted, all testing performed by [place] [address] CLIA: [id number] Front Desk Host: Maurice Coello M.D. Basophils/100 WBC (Bld) 0.9 % Normal [facility] Comment on above: Performed By: #### C BCWOD, PT, PTT, DDIMR, EDCTNI, NTPROBNP, CHEM8, LIPASE, CMETADD #### Unless otherwise noted, all testing performed by [place] [address] CLIA: [id number] Front Desk Host: Maurice Coello M.D. Eosinophils #/vol (Bld) 0.1 K/mcL Normal 0-0.5 O [facility] Comment on above: Performed By: #### C BCWOD, PT, PTT, DDIMR, EDCTNI, NTPROBNP, CHEM8, LIPASE, CMETADD #### Unless otherwise noted, all testing performed by [place] [address] CLIA: [id number] Front Desk Host: Maurice Coello M.D. Eosinophils/100 WBC (Bld) 1.5 % Normal [facility] Comment on above: Performed By: #### C BCWOD, PT, PTT, DDIMR, EDCTNI, NTPROBNP, CHEM8, LIPASE, CMETADD #### Unless otherwise noted, all testing performed by [place] [address] CLIA: [id number] Front Desk Host: Maurice Coello M.D. Erythrocyte distribution width Ratio (RBC) 16.8 % High 10.0-14.4 [facility] Comment on above: Performed By: #### C BCWOD, PT, PTT, DDIMR, EDCTNI, NTPROBNP, CHEM8, LIPASE, CMETADD #### Unless otherwise noted, all testing performed by [place] [address] CLIA: [id number] Front Desk Host: Maurice Omde, M.D. Hematocrit Volume Fraction (Bld) 32.8 % Low 34.4-44.8 [facility] Comment on above: Performed By: #### C BCWOD, PT, PTT, DDIMR, EDCTNI, NTPROBNP, CHEM8, LIPASE, CMETADD #### Unless otherwise noted, all testing performed by [place] [address] CLIA: [id number] Front Desk Host: Maurice Coello M.D. Hemoglobin mass conc (Bld) 10.8 g/dL Low 11.6-15.4 [facility] Comment on above: Performed By: #### C BCWOD, PT, PTT, DDIMR, EDCTNI, NTPROBNP, CHEM8, LIPASE, CMETADD #### Unless otherwise noted, all testing performed by [place] [address] CLIA: [id number] Front Desk Host: Maurice Coello M.D. Lymphocytes #/vol (Bld) 1.8 K/mcL Normal 1.0-3.7 O [facility] Comment on above: Performed By: #### C BCWOD, PT, PTT, DDIMR, EDCTNI, NTPROBNP, CHEM8, LIPASE, CMETADD #### Unless otherwise noted, all testing performed by [place] [address] CLIA: [id number] Front Desk Host: Maurice Coello M.D. Lymphocytes/100 WBC (Bld) 20.7 % Normal [facility] Comment on above: Performed By: #### C BCWOD, PT, PTT, DDIMR, EDCTNI, NTPROBNP, CHEM8, LIPASE, CMETADD #### Unless otherwise noted, all testing performed by [place] [address] CLIA: [id number] Front Desk Host: Maurice Coello M.D. MCH Entitic mass (RBC) 25.3 pg Low 27.9-33.9 [facility] Comment on above: Performed By: #### C BCWOD, PT, PTT, DDIMR, EDCTNI, NTPROBNP, CHEM8, LIPASE, CMETADD #### Unless otherwise noted, all testing performed by [place] [address] CLIA: [id number] Front Desk Host: Maurice Coello M.D. MCHC mass conc (RBC) 33.0 g/dL Low 33.1-35.1 [facility] Comment on above: Performed By: #### C BCWOD, PT, PTT, DDIMR, EDCTNI, NTPROBNP, CHEM8, LIPASE, CMETADD #### Unless otherwise noted, all testing performed by [place] [address] CLIA: [id number] Front Desk Host: Maurice Coello M.D. MCV Entitic volume (RBC) 76.7 fL Low 82.6-98.9 [facility] Comment on above: Performed By: #### C BCWOD, PT, PTT, DDIMR, EDCTNI, NTPROBNP, CHEM8, LIPASE, CMETADD #### Unless otherwise noted, all testing performed by [place] [address] CLIA: [id number] Front Desk Host: Maurice Coello M.D. Monocytes #/vol (Bld) 0.7 K/mcL High 0.1-0.[address] [facility] Comment on above: Performed By: #### C BCWOD, PT, PTT, DDIMR, EDCTNI, NTPROBNP, CHEM8, LIPASE, CMETADD #### Unless otherwise noted, all testing performed by [place] [address] CLIA: [id number] Front Desk Host: Maurice Coello M.D. Monocytes/100 WBC (Bld) 8.1 % Normal [facility] Comment on above: Performed By: #### C BCWOD, PT, PTT, DDIMR, EDCTNI, NTPROBNP, CHEM8, LIPASE, CMETADD #### Unless otherwise noted, all testing performed by [place] [address] CLIA: [id number] Front Desk Host: Maurice Coello M.D. Neutrophils #/vol (Bld) 5.8 K/mcL Normal 1.2-6.9 [facility] Comment on above: Performed By: #### C BCWOD, PT, PTT, DDIMR, EDCTNI, NTPROBNP, CHEM8, LIPASE, CMETADD #### Unless otherwise noted, all testing performed by [place] [address] CLIA: [id number] Front Desk Host: Maurice Coello M.D. Platelet mean volume Entitic volume (Bld) 8.7 fL Normal 7.0-10.6 [facility] Comment on above: Performed By: #### C BCWOD, PT, PTT, DDIMR, EDCTNI, NTPROBNP, CHEM8, LIPASE, CMETADD #### Unless otherwise noted, all testing performed by [place] [address] CLIA: [id number] Front Desk Host: Maurice Coello M.D. Platelets #/vol (Bld) 274 K/mcL Normal 162-[address] [facility] Comment on above: Performed By: #### C BCWOD, PT, PTT, DDIMR, EDCTNI, NTPROBNP, CHEM8, LIPASE, CMETADD #### Unless otherwise noted, all testing performed by [place] [address] CLIA: [id number] Front Desk Host: Maurice Coello M.D. RBC #/vol (Bld) 4.28 M/mcL Normal 3.7-5.0 [facility] Comment on above: Performed By: #### C BCWOD, PT, PTT, DDIMR, EDCTNI, NTPROBNP, CHEM8, LIPASE, CMETADD #### Unless otherwise noted, all testing performed by [place] [address] CLIA: [id number] Front Desk Host: Maurice Coello M.D. Segmented Neut % 68.8 % Normal [facility] Comment on above: Performed By: #### C BCWOD, PT, PTT, DDIMR, EDCTNI, NTPROBNP, CHEM8, LIPASE, CMETADD #### Unless otherwise noted, all testing performed by [place] [address] CLIA: [id number] Front Desk Host: Maurice Coello M.D. WBC #/vol (Bld) 8.5 K/mcL Normal 3.4-10.6 [facility] Comment on above: Performed By: #### C BCWOD, PT, PTT, DDIMR, EDCTNI, NTPROBNP, CHEM8, LIPASE, CMETADD #### Unless otherwise noted, all testing performed by [place] [address] CLIA: [id number] Front Desk Host: Maurice Coello M.D. CHEMG (Basic Metabolic and M g)on 11-28-2018 Calcium mass conc 8.1 mg/dL Low 8.4-10.2 [facility] Comment on above: Performed By: #### C BCWOD, PT, PTT, DDIMR, EDCTNI, NTPROBNP, CHEM8, LIPASE, CMETADD #### Unless otherwise noted, all testing performed by [place] [address] CLIA: [id number] Front Desk Host: Maurice Coello M.D. Chloride molar conc 106 mmol/L Normal 98-108 [facility] Comment on above: Performed By: #### C BCWOD, PT, PTT, DDIMR, EDCTNI, NTPROBNP, CHEM8, LIPASE, CMETADD #### Unless otherwise noted, all testing performed by [place] [address] CLIA: [id number] Front Desk Host: Maurice Coello M.D. CO2 molar conc 28 mmol/L Normal 21-32 [facility] Comment on above: Performed By: #### C BCWOD, PT, PTT, DDIMR, EDCTNI, NTPROBNP, CHEM8, LIPASE, CMETADD #### Unless otherwise noted, all testing performed by [place] [address] CLIA: [id number] Front Desk Host: Maurice Coello M.D. Creatinine mass conc 1.51 mg/dL High 0.40-1.10 [facility] Comment on above: Performed By: #### C BCWOD, PT, PTT, DDIMR, EDCTNI, NTPROBNP, CHEM8, LIPASE, CMETADD #### Unless otherwise noted, all testing performed by [place] [address] CLIA: [id number] Front Desk Host: Maurice Coello M.D. GFR/1.73 sq M predicted among blacks MDRD vol rate/area (S/P/Bld) 42 mL/min/{1.73_m2} Low >60 [facility] Comment on above: Result Comment: Afri can [place] GFR Calc Performed By: #### C BCWOD, PT, PTT, DDIMR, EDCTNI, NTPROBNP, CHEM8, LIPASE, CMETADD #### Unless otherwise noted, all testing performed by [place] [address] CLIA: [id number] Front Desk Host: Maurice Coello M.D. GFR/1.73 sq M predicted among non-blacks MDRD vol rate/area (S/P/Bld) 35 mL/min/{1.73_m2} Low >60 [facility] Comment on above: Result Comment: Non- GFR [...] Unless otherwise noted, all testing performed by [place] [address] CLIA: [id number] Front Desk Host: Maurice Coello M.D. Glucose mass conc 91 mg/dL Normal 70-99 [facility] Comment on above: Result Comment: This test result might be falsely depressed or falsely elevated on samples drawn from patients taking Sulfasalazine and Sulfapyridine. Venipuncture should occur prior to taking either of these drugs. Performed By: #### C BCWOD, PT, PTT, DDIMR, EDCTNI, NTPROBNP, CHEM8, LIPASE, CMETADD #### Unless otherwise noted, all testing performed by [place] [address] CLIA: [id number] Front Desk Host: Maurice Coello M.D. Magnesium mass conc 2.0 mg/dL Normal 1.6-2.4 [facility] Comment on above: Performed By: #### C BCWOD, PT, PTT, DDIMR, EDCTNI, NTPROBNP, CHEM8, LIPASE, CMETADD #### Unless otherwise noted, all testing performed by [place] [phone] CLIA: [id number] Front Desk Host: Maurice Coello M.D. Potassium molar conc 4.4 mmol/L Normal 3.5-5.1 [facility] Comment on above: Performed By: #### C BCWOD, PT, PTT, DDIMR, EDCTNI, NTPROBNP, CHEM8, LIPASE, CMETADD #### Unless otherwise noted, all testing performed by [place] [address] CLIA: [id number] Front Desk Host: Maurice Coello M.D. Sodium molar conc 137 mmol/L Normal 135-145 [facility] Comment on above: Performed By: #### C BCWOD, PT, PTT, DDIMR, EDCTNI, NTPROBNP, CHEM8, LIPASE, CMETADD #### Unless otherwise noted, all testing performed by [place] [address] CLIA: [id number] Front Desk Host: Maurice Coello M.D. Urea nitrogen mass conc 14 mg/dL Normal 8-25 [facility] Comment on above: Performed By: #### C BCWOD, PT, PTT, DDIMR, EDCTNI, NTPROBNP, CHEM8, LIPASE, CMETADD #### Unless otherwise noted, all testing performed by [place] [address] CLIA: [id number] Front Desk Host: Maurice Coello M.D. Cell Count, Body Fluidon Avni Swift.F. Cloudy Abnormal [facility] Comment on above: Performed By: #### C BCWOD, PT, PTT, DDIMR, EDCTNI, NTPROBNP, CHEM8, LIPASE, CMETADD #### Unless otherwise noted, all testing performed by [place] [address] CLIA: [id number] Front Desk Host: Maurice Coello M.D. Color, Body Fl. Yellow Normal [facility] Comment on above: Performed By: #### C BCWOD, PT, PTT, DDIMR, EDCTNI, NTPROBNP, CHEM8, LIPASE, CMETADD #### Unless otherwise noted, all testing performed by [place] [address] CLIA: [id number] Front Desk Host: Maurice Coello M.D. Lymphocytes/100 WBC (Bld) 7.0 % Normal [facility] Comment on above: Result Comment: Syno vial fld. Lymph% ref. range is <75%. Performed By: #### C BCWOD, PT, PTT, DDIMR, EDCTNI, NTPROBNP, CHEM8, LIPASE, CMETADD #### Unless otherwise noted, all testing performed by [place] [address] CLIA: [id number] Front Desk Host: Maurice Mode, M.D. Wirt/Macrophage 26.0 % Normal [facility] Comment on above: Result Comment: Syno vial fld. monocyte/macrophage% ref. range is <70%. Performed By: #### C BCWOD, PT, PTT, DDIMR, EDCTNI, NTPROBNP, CHEM8, LIPASE, CMETADD #### Unless otherwise noted, all testing performed by [place] [phone] CLIA: [id number] Front Desk Host: Maurice Coello M.D. RBC #/vol (Bld) 4014 /mcL Normal [facility] Comment on above: Result Comment: Syno vial fld. RBC ref. range is 0/mcL. Performed By: #### C BCWOD, PT, PTT, DDIMR, EDCTNI, NTPROBNP, CHEM8, LIPASE, CMETADD #### Unless otherwise noted, all testing performed by [place] [phone] CLIA: [id number] Front Desk Host: Maurice Coello M.D. Seg, Body Fl. 67.0 % Normal [facility] Comment on above: Result Comment: Syno vial fld. Seg% ref. range is <25%. Performed By: #### C BCWOD, PT, PTT, DDIMR, EDCTNI, NTPROBNP, CHEM8, LIPASE, CMETADD #### Unless otherwise noted, all testing performed by [place] [address] CLIA: [id number] Front Desk Host: Maurice Coello M.D. Spec. Type, B.F. Synovial Fluid Normal [facility] Comment on above: Performed By: #### C BCWOD, PT, PTT, DDIMR, EDCTNI, NTPROBNP, CHEM8, LIPASE, CMETADD #### Unless otherwise noted, all testing performed by [place] [address] CLIA: [id number] Front Desk Host: Maurice Coello M.D. WBC #/vol (Bld) 15630 /mcL Normal [facility] Comment on above: Result Comment: Syno vial fld. WBC ref. range is 0-200/mcL. Performed By: #### C BCWOD, PT, PTT, DDIMR, EDCTNI, NTPROBNP, CHEM8, LIPASE, CMETADD #### Unless otherwise noted, all testing performed by [place] [address] CLIA: [id number] Front Desk Host: Maurice Coello M.D. Crystals, Syn Fldon 11-28-19 19 Crystal, Intra None Seen Normal None Seen [facility] Comment on above: Performed By: #### C BCWOD, PT, PTT, DDIMR, EDCTNI, NTPROBNP, CHEM8, LIPASE, CMETADD #### Unless otherwise noted, all testing performed by [place] [address] CLIA: [id number] Front Desk Host: Maurice Coello M.D. Crystals, Extra None Seen Normal None Seen [facility] Comment on above: Performed By: #### C BCWOD, PT, PTT, DDIMR, EDCTNI, NTPROBNP, CHEM8, LIPASE, CMETADD #### Unless otherwise noted, all testing performed by [place] [address] CLIA: [id number] Front Desk Host: Maurice Coello M.D. Culture, Acid-Faston 019 Culture, Acid-Fast Test Name: Culture, Acid-Fast Site: Left knee (tka) Culture Status: Final Culture Report: No Acid-Fast Bacillus isolated after 8 weeks. Acid-Fast Smear: No Acid-Fast Bacillus seen on smear. Micro Source: Synovial Fluid Normal [facility] Comment on above: Performed By: #### C BCWOD, PT, PTT, DDIMR, EDCTNI, NTPROBNP, CHEM8, LIPASE, CMETADD #### Unless otherwise noted, all testing performed by [place] [address] CLIA: [id number] Front Desk Host: Maurice Coello M.D. Culture, Anaerobicon 019 Culture, Anaerobic Test Name: Culture, Anaerobic Site: left knee (TKA) Culture Status: Final Culture Report: No anaerobes isolated. Micro Source: Synovial Fluid Normal [facility] Comment on above: Performed By: #### C BCWOD, PT, PTT, DDIMR, EDCTNI, NTPROBNP, CHEM8, LIPASE, CMETADD #### Unless otherwise noted, all testing performed by [place] [address] CLIA: [id number] Front Desk Host: Maurice Coello M.D. Culture, Fungus,Otheron 11-07 Culture, Fungus,Other Test Name: Culture , Fungus,Other Site: left knee (tka) Culture Status: Final Culture Report: No Fungi isolated after 6 weeks. CATERINA Prep: No Fungal Elements Seen Micro Source: Synovial Fluid Normal [facility] Comment on above: Performed By: #### C BCWOD, PT, PTT, DDIMR, EDCTNI, NTPROBNP, CHEM8, LIPASE, CMETADD #### Unless otherwise noted, all testing performed by [place] [address] CLIA: [id number] Front Desk Host: Maurice Coello M.D. Culture,Bacterialon 11-28-19 19 Culture,Bacterial Test Name: Culture,Bacterial Site: left knee (TKA) Culture Status: Final Culture Report: No Growth - Day 5 Gram Stain: Moderate WBC's No Organisms Seen Micro Source: Synovial Fluid Normal [facility] Comment on above: Performed By: #### C BCWOD, PT, PTT, DDIMR, EDCTNI, NTPROBNP, CHEM8, LIPASE, CMETADD #### Unless otherwise noted, all testing performed by [place] [address] CLIA: [id number] Front Desk Host: Maurice Coello M.D. CBC with Diffon 11-27-2018 Basophils #/vol (Bld) 0.1 K/mcL Normal 0-0.[address] [facility] Comment on above: Performed By: #### C BCWOD, PT, PTT, DDIMR, EDCTNI, NTPROBNP, CHEM8, LIPASE, CMETADD #### Unless otherwise noted, all testing performed by [place] [address] CLIA: [id number] Front Desk Host: Maurice Coello M.D. Basophils/100 WBC (Bld) 0.8 % Normal [facility] Comment on above: Performed By: #### C BCWOD, PT, PTT, DDIMR, EDCTNI, NTPROBNP, CHEM8, LIPASE, CMETADD #### Unless otherwise noted, all testing performed by [place] [address] CLIA: [id number] Front Desk Host: Maurice Coello M.D. Eosinophils #/vol (Bld) 0.1 K/mcL Normal 0-0.5 [facility] Comment on above: Performed By: #### C BCWOD, PT, PTT, DDIMR, EDCTNI, NTPROBNP, CHEM8, LIPASE, CMETADD #### Unless otherwise noted, all testing performed by [facility] [place] [address] CLIA: [id number] Front Desk Host: Maurice Coello M.D. Eosinophils/100 WBC (Bld) 1.3 % Normal [facility] Comment on above: Performed By: #### C BCWOD, PT, PTT, DDIMR, EDCTNI, NTPROBNP, CHEM8, LIPASE, CMETADD #### Unless otherwise noted, all testing performed by [place] [address] CLIA: [id number] Front Desk Host: Maurice Coello M.D. Erythrocyte distribution width Ratio (RBC) 16.8 % High 10.0-14.4 [facility] Comment on above: Performed By: #### C BCWOD, PT, PTT, DDIMR, EDCTNI, NTPROBNP, CHEM8, LIPASE, CMETADD #### Unless otherwise noted, all testing performed by [place] [address] CLIA: [id number] Front Desk Host: Maurice Coello M.D. Hematocrit Volume Fraction (Bld) 37.1 % Normal 34.4-44.8 [facility] Comment on above: Performed By: #### C BCWOD, PT, PTT, DDIMR, EDCTNI, NTPROBNP, CHEM8, LIPASE, CMETADD #### Unless otherwise noted, all testing performed by [place] [address] CLIA: [id number] Front Desk Host: Maurice Coello M.D. Hemoglobin mass conc (Bld) 11.7 g/dL Normal 11.6-15.4 [facility] Comment on above: Performed By: #### C BCWOD, PT, PTT, DDIMR, EDCTNI, NTPROBNP, CHEM8, LIPASE, CMETADD #### Unless otherwise noted, all testing performed by [place] [address] CLIA: [id number] Front Desk Host: Maurice Coello M.D. Lymphocytes #/vol (Bld) 1.6 K/mcL Normal 1.0-3.7 [facility] Comment on above: Performed By: #### C BCWOD, PT, PTT, DDIMR, EDCTNI, NTPROBNP, CHEM8, LIPASE, CMETADD #### Unless otherwise noted, all testing performed by [place] [address] CLIA: [id number] Front Desk Host: Maurice Coello M.D. Lymphocytes/100 WBC (Bld) 19.2 % Normal [facility] Comment on above: Performed By: #### C BCWOD, PT, PTT, DDIMR, EDCTNI, NTPROBNP, CHEM8, LIPASE, CMETADD #### Unless otherwise noted, all testing performed by [place] [address] CLIA: [id number] Front Desk Host: Maurice Coello M.D. MCH Entitic mass (RBC) 24.2 pg Low 27.9-33.9 [facility] Comment on above: Performed By: #### C BCWOD, PT, PTT, DDIMR, EDCTNI, NTPROBNP, CHEM8, LIPASE, CMETADD #### Unless otherwise noted, all testing performed by [place] [address] CLIA: [id number] Front Desk Host: Maurice Coello M.D. MCHC mass conc (RBC) 31.5 g/dL Low 33.1-35.1 [facility] Comment on above: Performed By: #### C BCWOD, PT, PTT, DDIMR, EDCTNI, NTPROBNP, CHEM8, LIPASE, CMETADD #### Unless otherwise noted, all testing performed by [place] [address] CLIA: [id number] Front Desk Host: Maurice Coello M.D. MCV Entitic volume (RBC) 77.0 fL Low 82.6-98.9 [facility] Comment on above: Performed By: #### C BCWOD, PT, PTT, DDIMR, EDCTNI, NTPROBNP, CHEM8, LIPASE, CMETADD #### Unless otherwise noted, all testing performed by [place] [phone] CLIA: [id number] Front Desk Host: Maurice Coello M.D. Monocytes #/vol (Bld) 0.5 K/mcL Normal 0.1-0.[address] [facility] Comment on above: Performed By: #### C BCWOD, PT, PTT, DDIMR, EDCTNI, NTPROBNP, CHEM8, LIPASE, CMETADD #### Unless otherwise noted, all testing performed by [place] [address] CLIA: [id number] Front Desk Host: Maurice Coello M.D. Monocytes/100 WBC (Bld) 6.5 % Normal [facility] Comment on above: Performed By: #### C BCWOD, PT, PTT, DDIMR, EDCTNI, NTPROBNP, CHEM8, LIPASE, CMETADD #### Unless otherwise noted, all testing performed by [place] [address] CLIA: [id number] Front Desk Host: Maurice Coello M.D. Neutrophils #/vol (Bld) 5.9 K/mcL Normal 1.2-6.9 [facility] Comment on above: Performed By: #### C BCWOD, PT, PTT, DDIMR, EDCTNI, NTPROBNP, CHEM8, LIPASE, CMETADD #### Unless otherwise noted, all testing performed by [place] [address] CLIA: [id number] Front Desk Host: Maurice Coello M.D. Platelet mean volume Entitic volume (Bld) 8.5 fL Normal 7.0-10.6 [facility] Comment on above: Performed By: #### C BCWOD, PT, PTT, DDIMR, EDCTNI, NTPROBNP, CHEM8, LIPASE, CMETADD #### Unless otherwise noted, all testing performed by [place] [address] CLIA: [id number] Front Desk Host: Maurice Coello M.D. Platelets #/vol (Bld) 279 K/mcL Normal 162-[address] [facility] Comment on above: Performed By: #### C BCWOD, PT, PTT, DDIMR, EDCTNI, NTPROBNP, CHEM8, LIPASE, CMETADD #### Unless otherwise noted, all testing performed by [place] [address] CLIA: [id number] Front Desk Host: Maurice Coello M.D. RBC #/vol (Bld) 4.83 M/mcL Normal 3.7-5.0 [facility] Comment on above: Performed By: #### C BCWOD, PT, PTT, DDIMR, EDCTNI, NTPROBNP, CHEM8, LIPASE, CMETADD #### Unless otherwise noted, all testing performed by [address] [place], [place] [address] CLIA: [id number] Front Desk Host: Maurice Coello M.D. Segmented Neut % 72.2 % Normal [facility] Comment on above: Performed By: #### C BCWOD, PT, PTT, DDIMR, EDCTNI, NTPROBNP, CHEM8, LIPASE, CMETADD #### Unless otherwise noted, all testing performed by [place] [address] CLIA: [id number] Front Desk Host: Maurice Coello M.D. WBC #/vol (Bld) 8.2 K/mcL Normal 3.4-10.6 [facility] Comment on above: Performed By: #### C BCWOD, PT, PTT, DDIMR, EDCTNI, NTPROBNP, CHEM8, LIPASE, CMETADD #### Unless otherwise noted, all testing performed by [place] [address] CLIA: [id number] Front Desk Host: Maurice Coello M.D. CRP, C-Reactive Proteinon Protein mass conc 145.0 mg/L High 0.0-10.0 [facility] Comment on above: Performed By: #### C BCWOD, PT, PTT, DDIMR, EDCTNI, NTPROBNP, CHEM8, LIPASE, CMETADD #### Unless otherwise noted, all testing performed by [place] [address] CLIA: [id number] Front Desk Host: Maurice Coello M.D. Comprehensive Metabolic Pane jett 11-27-2018 Albumin mass conc 3.6 g/dL Normal 3.2-5.2 [facility] Comment on above: Performed By: #### C BCWOD, PT, PTT, DDIMR, EDCTNI, NTPROBNP, CHEM8, LIPASE, CMETADD #### Unless otherwise noted, all testing performed by [place] [address] CLIA: [id number] Front Desk Host: Maurice Coello M.D. ALP enzyme act/vol 102 U/L Normal 40-150 [facility] Comment on above: Performed By: #### C BCWOD, PT, PTT, DDIMR, EDCTNI, NTPROBNP, CHEM8, LIPASE, CMETADD #### Unless otherwise noted, all testing performed by [place] [phone] CLIA: [id number] Front Desk Host: Maurice Coello M.D. ALT enzyme act/vol 21 U/L Normal 14-65 [facility] Comment on above: Result Comment: This test result might be falsely depressed or falsely elevated on samples drawn from patients taking Sulfasalazine and Sulfapyridine. Venipuncture should occur prior to taking either of these drugs. Performed By: #### C BCWOD, PT, PTT, DDIMR, EDCTNI, NTPROBNP, CHEM8, LIPASE, CMETADD #### Unless otherwise noted, all testing performed by [place] [address] CLIA: [id number] Front Desk Host: Maurice Coello M.D. AST enzyme act/vol 18 U/L Normal 0-45 [facility] Comment on above: Result Comment: This test result might be falsely depressed or falsely elevated on samples drawn from patients taking Sulfasalazine and Sulfapyridine. Venipuncture should occur prior to taking either of these drugs. Performed By: #### C BCWOD, PT, PTT, DDIMR, EDCTNI, NTPROBNP, CHEM8, LIPASE, CMETADD #### Unless otherwise noted, all testing performed by [place] [address] CLIA: [id number] Front Desk Host: Maurice Coello M.D. Bilirubin mass conc 0.3 mg/dL Normal 0.3-1.2 [facility] Comment on above: Performed By: #### C BCWOD, PT, PTT, DDIMR, EDCTNI, NTPROBNP, CHEM8, LIPASE, CMETADD #### Unless otherwise noted, all testing performed by [place] [address] CLIA: [id number] Front Desk Host: Maurice Coello M.D. Calcium mass conc 8.7 mg/dL Normal 8.4-10.2 [facility] Comment on above: Performed By: #### C BCWOD, PT, PTT, DDIMR, EDCTNI, NTPROBNP, CHEM8, LIPASE, CMETADD #### Unless otherwise noted, all testing performed by [place] [address] CLIA: [id number] Front Desk Host: Maurice Coello M.D. Chloride molar conc 105 mmol/L Normal 98-108 [facility] Comment on above: Performed By: #### C BCWOD, PT, PTT, DDIMR, EDCTNI, NTPROBNP, CHEM8, LIPASE, CMETADD #### Unless otherwise noted, all testing performed by [place] [address] CLIA: [id number] Front Desk Host: Maurice Coello M.D. CO2 molar conc 27 mmol/L Normal 21-32 [facility] Comment on above: Performed By: #### C BCWOD, PT, PTT, DDIMR, EDCTNI, NTPROBNP, CHEM8, LIPASE, CMETADD #### Unless otherwise noted, all testing performed by [place] [address] CLIA: [id number] Front Desk Host: Maurice Coello M.D. Creatinine mass conc 1.53 mg/dL High 0.40-1.10 [facility] Comment on above: Performed By: #### C BCWOD, PT, PTT, DDIMR, EDCTNI, NTPROBNP, CHEM8, LIPASE, CMETADD #### Unless otherwise noted, all testing performed by [place] [address] CLIA: [id number] Front Desk Host: Maurice Coello M.D. GFR/1.73 sq M predicted among blacks MDRD vol rate/area (S/P/Bld) 42 mL/min/{1.73_m2} Low >60 [facility] Comment on above: Result Comment: Afri can [place] GFR Calc Performed By: #### C BCWOD, PT, PTT, DDIMR, EDCTNI, NTPROBNP, CHEM8, LIPASE, CMETADD #### Unless otherwise noted, all testing performed by [place] [address] CLIA: [id number] Front Desk Host: Maurice Coello M.D. GFR/1.73 sq M predicted among non-blacks MDRD vol rate/area (S/P/Bld) 35 mL/min/{1.73_m2} Low >60 [facility] Comment on above: Result Comment: Non- GFR [...] Unless otherwise noted, all testing performed by [place] [address] CLIA: [id number] Front Desk Host: Maurice Coello M.D. Glucose mass conc 96 mg/dL Normal 70-99 [facility] Comment on above: Result Comment: This test result might be falsely depressed or falsely elevated on samples drawn from patients taking Sulfasalazine and Sulfapyridine. Venipuncture should occur prior to taking either of these drugs. Performed By: #### C BCWOD, PT, PTT, DDIMR, EDCTNI, NTPROBNP, CHEM8, LIPASE, CMETADD #### Unless otherwise noted, all testing performed by [place] [phone] CLIA: [id number] Front Desk Host: Maurice Coello M.D. Potassium molar conc 3.9 mmol/L Normal 3.5-5.1 [facility] Comment on above: Performed By: #### C BCWOD, PT, PTT, DDIMR, EDCTNI, NTPROBNP, CHEM8, LIPASE, CMETADD #### Unless otherwise noted, all testing performed by [place] [address] CLIA: [id number] Front Desk Host: Maurice Coello M.D. Protein mass conc 7.9 g/dL Normal 6.0-8.0 [facility] Comment on above: Performed By: #### C BCWOD, PT, PTT, DDIMR, EDCTNI, NTPROBNP, CHEM8, LIPASE, CMETADD #### Unless otherwise noted, all testing performed by [place] [address] CLIA: [id number] Front Desk Host: Maurice Coello M.D. Sodium molar conc 139 mmol/L Normal 135-145 [facility] Comment on above: Performed By: #### C BCWOD, PT, PTT, DDIMR, EDCTNI, NTPROBNP, CHEM8, LIPASE, CMETADD #### Unless otherwise noted, all testing performed by [place] [address] CLIA: [id number] Front Desk Host: Maurice Coello M.D. Urea nitrogen mass conc 13 mg/dL Normal 8-25 [facility] Comment on above: Performed By: #### C BCWOD, PT, PTT, DDIMR, EDCTNI, NTPROBNP, CHEM8, LIPASE, CMETADD #### Unless otherwise noted, all testing performed by [place] [address] CLIA: [id number] Front Desk Host: Maurice Coello M.D. D-Dimeron 11-27-2018 D-Dimer 1.18 mcg/ml (FEU) High < .5 [facility] Comment on above: Result Comment: This test is intended for use in conjunction with a clinical pretest probability (PTP) assessment model to exclude pulmonary embolism (PE) and deep vein thrombosis (DVT) in outpatients suspected of PE or DVT. Performed By: #### C BCWOD, PT, PTT, DDIMR, EDCTNI, NTPROBNP, CHEM8, LIPASE, CMETADD #### Unless otherwise noted, all testing performed by [place] [address] CLIA: [id number] Front Desk Host: Maurice Coello M.D. KNEE W/ONE OBLIQUEon 019 KNEE W/ONE OBLIQUE Final Report Accession No: [id number] Performed: Nov 27 2018 7:33PM Examination: [...] complications. Interpreting Physician: MATIAS ADLER M.D. Trans: [id number] : cc: Normal [facility] Lactic Acidon 11-27-2018 Lactate molar conc 0.9 mmol/L Normal 0.6-2.0 [facility] Comment on above: Performed By: #### C BCWOD, PT, PTT, DDIMR, EDCTNI, NTPROBNP, CHEM8, LIPASE, CMETADD #### Unless otherwise noted, all testing performed by [place] [address] CLIA: [id number] Front Desk Host: Maurice Coello M.D. Sed Rateon 11-27-2018 Sed Rate 53 MM/hr. High 0-20 [facility] Comment on above: Performed By: #### C BCWOD, PT, PTT, DDIMR, EDCTNI, NTPROBNP, CHEM8, LIPASE, CMETADD #### Unless otherwise noted, all testing performed by [place] [address] CLIA: [id number] Front Desk Host: Maurice Coello M.D. US EXTREMITY NON-VASCULAR LM ITEDon 10-10-2018 US EXTREMITY NON-VASCULAR LMITED Final Report Accession No: [id number] Performed: Oct 10 2018 12:32PM Examination: [...] Trans: dcarr : cc: Normal [facility] Blood Gas, Arterialon 2017 Aa Ratio 77.0 % Normal [facility] Comment on above: Performed By: #### C BCWOD, PT, PTT, DDIMR, EDCTNI, NTPROBNP, CHEM8, LIPASE, CMETADD #### Unless otherwise noted, all testing performed by [place] [address] CLIA: [id number] Front Desk Host: Maurice Coello M.D. [id number] 21.5 mm Hg Normal [facility] Comment on above: Performed By: #### C BCWOD, PT, PTT, DDIMR, EDCTNI, NTPROBNP, CHEM8, LIPASE, CMETADD #### Unless otherwise noted, all testing performed by [place] [address] CLIA: [id number] Front Desk Host: Maurice Coello M.D. Allen Test N/A Normal [facility] Comment on above: Performed By: #### C BCWOD, PT, PTT, DDIMR, EDCTNI, NTPROBNP, CHEM8, LIPASE, CMETADD #### Unless otherwise noted, all testing performed by [place] [address] CLIA: [id number] Front Desk Host: Maurice Mode, M.D. Base Excess 1.2 mmol/L Normal -2-2 [facility] Comment on above: Performed By: #### C BCWOD, PT, PTT, DDIMR, EDCTNI, NTPROBNP, CHEM8, LIPASE, CMETADD #### Unless otherwise noted, all testing performed by [place] [address] CLIA: [id number] Front Desk Host: Maurice Coello M.D. Blood Gas Instrument ;ICU Normal [facility] Comment on above: Performed By: #### C BCWOD, PT, PTT, DDIMR, EDCTNI, NTPROBNP, CHEM8, LIPASE, CMETADD #### Unless otherwise noted, all testing performed by [place] [address] CLIA: [id number] Front Desk Host: Maurice Coello M.D. Carboxyhemoglobin 1.2 % Normal [facility] Comment on above: Result Comment: Subu rban Non-Smoker <1.5% of total Hgb Smoker 1.5 - 5.0 % of total Hgb Heavy Smoker 5.0 - 9.0 % of total Hgb Performed By: #### C BCWOD, PT, PTT, DDIMR, EDCTNI, NTPROBNP, CHEM8, LIPASE, CMETADD #### Unless otherwise noted, all testing performed by [place] [address] CLIA: [id number] Front Desk Host: Maurice Coello M.D. DeOxyhemoglobin (HHB) 5.5 % High 0.0-5.[address] [facility] Comment on above: Performed By: #### C BCWOD, PT, PTT, DDIMR, EDCTNI, NTPROBNP, CHEM8, LIPASE, CMETADD #### Unless otherwise noted, all testing performed by [facility] [place] [address] CLIA: [id number] Front Desk Host: Maurice Coello M.D. Drawn By (Bld Gas) pdb Normal [facility] Comment on above: Performed By: #### C BCWOD, PT, PTT, DDIMR, EDCTNI, NTPROBNP, CHEM8, LIPASE, CMETADD #### Unless otherwise noted, all testing performed by [place] [address] CLIA: [id number] Front Desk Host: Maurice Coello M.D. FIO2 21.0 % Normal 21-100 [facility] Comment on above: Performed By: #### C BCWOD, PT, PTT, DDIMR, EDCTNI, NTPROBNP, CHEM8, LIPASE, CMETADD #### Unless otherwise noted, all testing performed by [place] [address] CLIA: [id number] Front Desk Host: Maurice Coello M.D. HCO3 molar conc (Bld) 26.6 mmol/L High 22-26 [facility] Comment on above: Performed By: #### C BCWOD, PT, PTT, DDIMR, EDCTNI, NTPROBNP, CHEM8, LIPASE, CMETADD #### Unless otherwise noted, all testing performed by [place] [address] CLIA: [id number] Front Desk Host: Maurice Coello M.D. Hematocrit Volume Fraction (Bld) 37.9 % Normal 36-46 [facility] Comment on above: Performed By: #### C BCWOD, PT, PTT, DDIMR, EDCTNI, NTPROBNP, CHEM8, LIPASE, CMETADD #### Unless otherwise noted, all testing performed by [place] [address] CLIA: [id number] Front Desk Host: Maurice Coello M.D. Hemoglobin mass conc (Bld) 94.4 % Normal 92-99 [facility] Comment on above: Performed By: #### C BCWOD, PT, PTT, DDIMR, EDCTNI, NTPROBNP, CHEM8, LIPASE, CMETADD #### Unless otherwise noted, all testing performed by [place] [address] CLIA: [id number] Front Desk Host: Maurice Coello M.D. Hemoglobin mass conc (Bld) 12.4 g/dL Normal 12.0-16.0 [facility] Comment on above: Performed By: #### C BCWOD, PT, PTT, DDIMR, EDCTNI, NTPROBNP, CHEM8, LIPASE, CMETADD #### Unless otherwise noted, all testing performed by [place] [address] CLIA: [id number] Front Desk Host: Maurice Coello M.D. Hemoglobin mass conc (Bld) 92.2 % Normal 92-99 [facility] Comment on above: Performed By: #### C BCWOD, PT, PTT, DDIMR, EDCTNI, NTPROBNP, CHEM8, LIPASE, CMETADD #### Unless otherwise noted, all testing performed by [place] [address] CLIA: [id number] Front Desk Host: Maurice Coello M.D. Methemoglobin 1.1 % Normal < 2.0 [facility] Comment on above: Performed By: #### C BCWOD, PT, PTT, DDIMR, EDCTNI, NTPROBNP, CHEM8, LIPASE, CMETADD #### Unless otherwise noted, all testing performed by [place] [address] CLIA: [id number] Front Desk Host: Maurice Coello M.D. O2 Device Room Air Normal [facility] Comment on above: Performed By: #### C BCWOD, PT, PTT, DDIMR, EDCTNI, NTPROBNP, CHEM8, LIPASE, CMETADD #### Unless otherwise noted, all testing performed by [place] [address] CLIA: [id number] Front Desk Host: Maurice Coello M.D. O2CT 7.2 mmol/L Normal [facility] Comment on above: Performed By: #### C BCWOD, PT, PTT, DDIMR, EDCTNI, NTPROBNP, CHEM8, LIPASE, CMETADD #### Unless otherwise noted, all testing performed by [place] [address] CLIA: [id number] Front Desk Host: Maurice Coello M.D. Oxygen ppres (Bld) 71.8 mm Hg Low 80-100 [facility] Comment on above: Performed By: #### C BCWOD, PT, PTT, DDIMR, EDCTNI, NTPROBNP, CHEM8, LIPASE, CMETADD #### Unless otherwise noted, all testing performed by [place] [address] CLIA: [id number] Front Desk Host: Maurice Coello M.D. PCO2 44.1 mm Hg Normal 35-45 [facility] Comment on above: Performed By: #### C BCWOD, PT, PTT, DDIMR, EDCTNI, NTPROBNP, CHEM8, LIPASE, CMETADD #### Unless otherwise noted, all testing performed by [place] [address] CLIA: [id number] Front Desk Host: Maurice Coello M.D. pCO2 (temp conv.) 44.1 mm Hg Normal 35.0-45.0 [facility] Comment on above: Performed By: #### C BCWOD, PT, PTT, DDIMR, EDCTNI, NTPROBNP, CHEM8, LIPASE, CMETADD #### Unless otherwise noted, all testing performed by [place] [address] CLIA: [id number] Front Desk Host: Maurice Coello M.D. pH (Bld) 7.389 [pH] Normal 7.350-7.450 [facility] Comment on above: Performed By: #### C BCWOD, PT, PTT, DDIMR, EDCTNI, NTPROBNP, CHEM8, LIPASE, CMETADD #### Unless otherwise noted, all testing performed by [place] [address] CLIA: [id number] Front Desk Host: Maurice Coello M.D. Site (Bld Gas) RTBRACH [facility] Comment on above: Performed By: #### C BCWOD, PT, PTT, DDIMR, EDCTNI, NTPROBNP, CHEM8, LIPASE, CMETADD #### Unless otherwise noted, all testing performed by [place] [address] CLIA: [id number] Front Desk Host: Maurice Coello M.D. 25-Hydroxy D Totalon 08-27-2 018 25-Hydroxy D Total 52 ng/mL Normal 30-100 [facility] Comment on above: [...] Unless otherwise noted, all testing performed by [place] [address] CLIA: [id number] Front Desk Host: Maurice Coello M.D. Albuminon 07-02-2018 Albumin mass conc 3.5 g/dL Normal 3.2-5.2 [facility] Comment on above: Performed By: #### C BCWOD, PT, PTT, DDIMR, EDCTNI, NTPROBNP, CHEM8, LIPASE, CMETADD #### Unless otherwise noted, all testing performed by [place] [address] CLIA: [id number] Front Desk Host: Maurice Coello M.D. Albumin mass conc 3.5 g/dL Invalid Interpretation Code 3.2 - 5.2 g/dL [facility] BUN and Creatinineon 018 Creatinine mass conc 1.48 mg/dL High 0.40-1.10 [facility] Comment on above: Performed By: #### C BCWOD, PT, PTT, DDIMR, EDCTNI, NTPROBNP, CHEM8, LIPASE, CMETADD #### Unless otherwise noted, all testing performed by [place] [address] CLIA: [id number] Front Desk Host: Maurice Coello M.D. GFR/1.73 sq M predicted among blacks MDRD vol rate/area (S/P/Bld) 43 mL/min/{1.73_m2} Low >60 [facility] Comment on above: Result Comment: Afri can [place] GFR Calc Performed By: #### C BCWOD, PT, PTT, DDIMR, EDCTNI, NTPROBNP, CHEM8, LIPASE, CMETADD #### Unless otherwise noted, all testing performed by [place] [address] CLIA: [id number] Front Desk Host: Maurice Coello M.D. GFR/1.73 sq M predicted among non-blacks MDRD vol rate/area (S/P/Bld) 36 mL/min/{1.73_m2} Low >60 [facility] Comment on above: Result Comment: Non- GFR [...] Unless otherwise noted, all testing performed by [place] [address] CLIA: [id number] Front Desk Host: Maurice Coello M.D. Urea nitrogen mass conc 14 mg/dL Normal 8-25 O [facility] Comment on above: Performed By: #### C BCWOD, PT, PTT, DDIMR, EDCTNI, NTPROBNP, CHEM8, LIPASE, CMETADD #### Unless otherwise noted, all testing performed by [place] [id number] CLIA: [id number] Front Desk Host: Maurice Coello M.D. Creatinine mass conc 1.48 mg/dL High 0.4 - 1 .1 mg/dL [facility] GFR/1.73 sq M predicted among blacks MDRD vol rate/area (S/P/Bld) 43 mL/min/{1.73_m2} Low >60 ml/min/1.73sq .m [facility] Comment on above: GFR Calc GFR/1.73 sq M predicted among non-blacks MDRD vol rate/area (S/P/Bld) 36 mL/min/{1.73_m2} Low >60 ml/min/1.73sq .[facility] Comment on above: Non- GFR [...] Invalid Interpretation Code 8 - 25 mg/dL [facility] Calciumon 07-02-2018 Calcium mass conc 9.0 mg/dL Normal 8.4-10.2 [facility] Comment on above: Performed By: #### C BCWOD, PT, PTT, DDIMR, EDCTNI, NTPROBNP, CHEM8, LIPASE, CMETADD #### Unless otherwise noted, all testing performed by [facility] [place] [address] [place], [place] [address] CLIA: [id number] Front Desk Host: Maurice Coello M.D. Calcium Levelon 07-02-2018 Calcium mass conc 9.0 mg/dL Invalid Interpretation Code 8.4 - 10.2 mg/dL [facility] Electrolyte Panelon 07-02-20 18 Chloride molar conc 100 mmol/L Invalid Interpretation Code 98 - 108 mmol/L [facility] CO2 molar conc 28 mmol/L Invalid Interpretation Code 21 - 32 mmol/L [facility] Potassium molar conc 4.7 mmol/L Invalid Interpretation Code 3.5 - 5.1 mmol/L [facility] Sodium molar conc 133 mmol/L Low 135 - 145 mmol/L [facility] Electrolyteson 07-02-2018 Chloride molar conc 100 mmol/L Normal 98-108 [facility] Comment on above: Performed By: #### C BCWOD, PT, PTT, DDIMR, EDCTNI, NTPROBNP, CHEM8, LIPASE, CMETADD #### Unless otherwise noted, all testing performed by [place] [address] CLIA: [id number] Front Desk Host: Maurice Coello M.D. CO2 molar conc 28 mmol/L Normal 21-32 [facility] Comment on above: Performed By: #### C BCWOD, PT, PTT, DDIMR, EDCTNI, NTPROBNP, CHEM8, LIPASE, CMETADD #### Unless otherwise noted, all testing performed by [place] [address] CLIA: [id number] Front Desk Host: Maurice Coello M.D. Potassium molar conc 4.7 mmol/L Normal 3.5-5.1 [facility] Comment on above: Performed By: #### C BCWOD, PT, PTT, DDIMR, EDCTNI, NTPROBNP, CHEM8, LIPASE, CMETADD #### Unless otherwise noted, all testing performed by [place] [address] CLIA: [id number] Front Desk Host: Maurice Coello M.D. Sodium molar conc 133 mmol/L Low 135-145 [facility] Comment on above: Performed By: #### C BCWOD, PT, PTT, DDIMR, EDCTNI, NTPROBNP, CHEM8, LIPASE, CMETADD #### Unless otherwise noted, all testing performed by [place] [address] CLIA: [id number] Front Desk Host: Maurice Coello M.D. Hemoglobin and Hematocriton 07-02-2018 Hematocrit Auto Volume Fraction (Bld) 36.3 % Invalid Interpretation Code 34.4 - 44.8 % [facility] Hemoglobin mass conc (Bld) 11.7 g/dL Invalid Interpretation Code 11.6 - 15.4 g/dL [facility] Hgb and Hcton 07-02-2018 Hematocrit Volume Fraction (Bld) 36.3 % Normal 34.4-44.8 [facility] Comment on above: Performed By: #### C BCWOD, PT, PTT, DDIMR, EDCTNI, NTPROBNP, CHEM8, LIPASE, CMETADD #### Unless otherwise noted, all testing performed by [place] [address] CLIA: [id number] Front Desk Host: Maurice Coello M.D. Hemoglobin mass conc (Bld) 11.7 g/dL Normal 11.6-15.4 [facility] Comment on above: Performed By: #### C BCWOD, PT, PTT, DDIMR, EDCTNI, NTPROBNP, CHEM8, LIPASE, CMETADD #### Unless otherwise noted, all testing performed by [place] [address] CLIA: [id number] Front Desk Host: Maurice Coello M.D. Otheron 07-02-2018 Interpretation and review of laboratory results Abnormal Invalid Interpretation Code [facility] Parathyroid Hormoneon 2017 Parathyroid Hormone 107.5 pg/mL High 18.4-80.1 [facility] Comment on above: Result Comment: Samp les from patients routinely receiving high dose biotin therapy may show falsely depressed results. Additional information may be required for diagnosis. Performed By: #### C BCWOD, PT, PTT, DDIMR, EDCTNI, NTPROBNP, CHEM8, LIPASE, CMETADD #### Unless otherwise noted, all testing performed by [place] [address] CLIA: [id number] Front Desk Host: Maurice Coello M.D. Interpretation and review of laboratory results Abnormal Invalid Interpretation Code [facility] Parathyroid Hormone 107.5 pg/mL High 18.4 - 8 0.1 pg/mL [facility] Comment on above: Samples from patient s routinely receiving high dose biotin therapy may show falsely depressed results. Additional information may be required for diagnosis. Phosphoruson 07-02-2018 Phosphate mass conc 3.1 mg/dL Normal 2.7-4.5 [facility] Comment on above: Performed By: #### C BCWOD, PT, PTT, DDIMR, EDCTNI, NTPROBNP, CHEM8, LIPASE, CMETADD #### Unless otherwise noted, all testing performed by [place] [address] CLIA: [id number] Front Desk Host: Maurice Coello M.D. Phosphate mass conc 3.1 mg/dL Invalid Interpretation Code 2.7 - 4.5 mg/dL [facility] Protein Panel, Urineon 07-02 Creatinine, Urine Random 83.50 mg/dL Normal [facility] Comment on above: Result Comment: No e stablished reference range. Performed By: #### C BCWOD, PT, PTT, DDIMR, EDCTNI, NTPROBNP, CHEM8, LIPASE, CMETADD #### Unless otherwise noted, all testing performed by [place] [address] CLIA: [id number] Front Desk Host: Maurice Coello M.D. Protein Creatinine Ratio 0.50 High 0.0-0.2 [facility] Comment on above: Performed By: #### C BCWOD, PT, PTT, DDIMR, EDCTNI, NTPROBNP, CHEM8, LIPASE, CMETADD #### Unless otherwise noted, all testing performed by [place] [address] CLIA: [id number] Front Desk Host: Maurice Coello M.D. Protein mass conc (U) 42.0 mg/dL Normal [facility] Comment on above: Performed By: #### C BCWOD, PT, PTT, DDIMR, EDCTNI, NTPROBNP, CHEM8, LIPASE, CMETADD #### Unless otherwise noted, all testing performed by [place] [address] CLIA: [id number] Front Desk Host: Maurice Coello M.D. Creatinine, Urine Random 83.50 mg/dL Invalid Interpretation Code [facility] Comment on above: No established refer ence range. Interpretation and review of laboratory results Abnormal Invalid Interpretation Code [facility] Protein, Urine Random 42.0 mg/dL Invalid Interpretation Code [facility] Protein/Creatinine Ratio, Urine 0.50 High [facility] TSHon 07-02-2018 Thyrotropin Qn 2.08 uIU/mL Normal 0.320-5.000 [facility] Comment on above: Result Comment: Samp les from patients routinely receiving high dose biotin therapy (100-300 mg/day) may show falsely decreased results. Please correlate clinically. Performed By: #### C BCWOD, PT, PTT, DDIMR, EDCTNI, NTPROBNP, CHEM8, LIPASE, CMETADD #### Unless otherwise noted, all testing performed by [place] [address] CLIA: [id number] Front Desk Host: Maurice Coello M.D. Thyrotropin Qn 2.08 m[IU]/L Invalid Interpretation Code [facility] Comment on above: Samples from patient s routinely receiving high dose biotin therapy (100-300 mg/day) may show falsely decreased results. Please correlate clinically. Thryroglobulin Tumor Mrkron 07-02-2018 Thyroglobulin Ab Qn 1.6 [IU]/mL Normal 0.0-3.9 [facility] Comment on above: Result Comment: Valu es obtained from different assay methods or kits may be different and cannot be used intergchangeably. Assay performed by Kellen Rohit [employer]. Test Performed by [facility] [employer] [address] [place] [address] Performed By: #### C BCWOD, PT, PTT, DDIMR, EDCTNI, NTPROBNP, CHEM8, LIPASE, CMETADD #### Unless otherwise noted, all testing performed by [place] [address] CLIA: [id number] Front Desk Host: Maurice Coello M.D. Thyroglobulin, Serum < 0.1 Normal <0.1 [facility] Comment on above: Result Comment: Refe rence range applies to athyrotic individuals. Patients with an intact thyroid are expected to have levels less than or equal to 35 ng/ml. Assay performed by Kellen Shokan [employer] Immunoassay Performed By: #### C BCWOD, PT, PTT, DDIMR, EDCTNI, NTPROBNP, CHEM8, LIPASE, CMETADD #### Unless otherwise noted, all testing performed by [place] [address] CLIA: [id number] Front Desk Host: Maurice Coello M.D. Vitamin D, Total, 25-OHon Vitamin D, 25-Hydroxy, Total 52 ng/mL Invalid Interpretation Code 30 - 100 ng/mL [facility] Comment on above: Please note that Flu [...] Calcium mass conc 8.7 mg/dL Normal 8.4-10.2 [facility] Comment on above: Performed By: #### C BCWOD, PT, PTT, DDIMR, EDCTNI, NTPROBNP, CHEM8, LIPASE, CMETADD #### Unless otherwise noted, all testing performed by [place] [address] CLIA: [id number] Front Desk Host: Maurice Coello M.D. Chloride molar conc 99 mmol/L Normal 98-108 [facility] Comment on above: Performed By: #### C BCWOD, PT, PTT, DDIMR, EDCTNI, NTPROBNP, CHEM8, LIPASE, CMETADD #### Unless otherwise noted, all testing performed by [place] [address] CLIA: [id number] Front Desk Host: Maurice Coello M.D. CO2 molar conc 29 mmol/L Normal 21-32 [facility] Comment on above: Performed By: #### C BCWOD, PT, PTT, DDIMR, EDCTNI, NTPROBNP, CHEM8, LIPASE, CMETADD #### Unless otherwise noted, all testing performed by [place] [address] CLIA: [id number] Front Desk Host: Maurice Coello M.D. Creatinine mass conc 1.50 mg/dL High 0.40-1.10 [facility] Comment on above: Performed By: #### C BCWOD, PT, PTT, DDIMR, EDCTNI, NTPROBNP, CHEM8, LIPASE, CMETADD #### Unless otherwise noted, all testing performed by [place] [address] CLIA: [id number] Front Desk Host: Maurice Coello M.D. GFR/1.73 sq M predicted among blacks MDRD vol rate/area (S/P/Bld) 43 mL/min/{1.73_m2} Low >60 [facility] Comment on above: Result Comment: Afri can [place]ian GFR Calc Performed By: #### C BCWOD, PT, PTT, DDIMR, EDCTNI, NTPROBNP, CHEM8, LIPASE, CMETADD #### Unless otherwise noted, all testing performed by [place] [address] CLIA: [id number] Front Desk Host: Maurice Coello M.D. GFR/1.73 sq M predicted among non-blacks MDRD vol rate/area (S/P/Bld) 35 mL/min/{1.73_m2} Low >60 [facility] Comment on above: Result Comment: Non- GFR [...] Unless otherwise noted, all testing performed by [place] [address] CLIA: [id number] Front Desk Host: Maurice Coello M.D. Glucose mass conc 108 mg/dL High 70-99 [facility] Comment on above: Result Comment: This test result might be falsely depressed or falsely elevated on samples drawn from patients taking Sulfasalazine and Sulfapyridine. Venipuncture should occur prior to taking either of these drugs. Performed By: #### C BCWOD, PT, PTT, DDIMR, EDCTNI, NTPROBNP, CHEM8, LIPASE, CMETADD #### Unless otherwise noted, all testing performed by [place] [phone] CLIA: [id number] Front Desk Host: Maurice Coello M.D. Potassium molar conc 5.2 mmol/L High 3.5-5.1 [facility] Comment on above: Performed By: #### C BCWOD, PT, PTT, DDIMR, EDCTNI, NTPROBNP, CHEM8, LIPASE, CMETADD #### Unless otherwise noted, all testing performed by [place] [address] CLIA: [id number] Front Desk Host: Maurice Coello M.D. Sodium molar conc 133 mmol/L Low 135-145 [facility] Comment on above: Performed By: #### C BCWOD, PT, PTT, DDIMR, EDCTNI, NTPROBNP, CHEM8, LIPASE, CMETADD #### Unless otherwise noted, all testing performed by [place] [address] CLIA: [id number] Front Desk Host: Mauriec Coello M.D. Urea nitrogen mass conc 13 mg/dL Normal 8-25 [facility] Comment on above: Performed By: #### C BCWOD, PT, PTT, DDIMR, EDCTNI, NTPROBNP, CHEM8, LIPASE, CMETADD #### Unless otherwise noted, all testing performed by [place] [address] CLIA: [id number] Front Desk Host: Maurice Coello M.D. CBC with Diffon 06-21-2018 Basophils #/vol (Bld) 0.1 K/mcL Normal 0-0.[address] [facility] Comment on above: Performed By: #### C BCWOD, PT, PTT, DDIMR, EDCTNI, NTPROBNP, CHEM8, LIPASE, CMETADD #### Unless otherwise noted, all testing performed by [place] [address] CLIA: [id number] Front Desk Host: Maurice Coello M.D. Basophils/100 WBC (Bld) 1.0 % Normal [facility] Comment on above: Performed By: #### C BCWOD, PT, PTT, DDIMR, EDCTNI, NTPROBNP, CHEM8, LIPASE, CMETADD #### Unless otherwise noted, all testing performed by [place] [address] CLIA: [id number] Front Desk Host: Maurice Coello M.D. Eosinophils #/vol (Bld) 0.2 K/mcL Normal 0-0.5 [facility] Comment on above: Performed By: #### C BCWOD, PT, PTT, DDIMR, EDCTNI, NTPROBNP, CHEM8, LIPASE, CMETADD #### Unless otherwise noted, all testing performed by [place] [address] CLIA: [id number] Front Desk Host: Maurice Coello M.D. Eosinophils/100 WBC (Bld) 2.3 % Normal [facility] Comment on above: Performed By: #### C BCWOD, PT, PTT, DDIMR, EDCTNI, NTPROBNP, CHEM8, LIPASE, CMETADD #### Unless otherwise noted, all testing performed by [place] [address] CLIA: [id number] Front Desk Host: Maurice Coello M.D. Erythrocyte distribution width Ratio (RBC) 15.4 % High 10.0-14.4 [facility] Comment on above: Performed By: #### C BCWOD, PT, PTT, DDIMR, EDCTNI, NTPROBNP, CHEM8, LIPASE, CMETADD #### Unless otherwise noted, all testing performed by [place] [address] CLIA: [id number] Front Desk Host: Maurice Coello M.D. Hematocrit Volume Fraction (Bld) 33.9 % Low 34.4-44.8 [facility] Comment on above: Performed By: #### C BCWOD, PT, PTT, DDIMR, EDCTNI, NTPROBNP, CHEM8, LIPASE, CMETADD #### Unless otherwise noted, all testing performed by [place] [address] CLIA: [id number] Front Desk Host: Maurice Coello M.D. Hemoglobin mass conc (Bld) 10.7 g/dL Low 11.6-15.4 [facility] Comment on above: Performed By: #### C BCWOD, PT, PTT, DDIMR, EDCTNI, NTPROBNP, CHEM8, LIPASE, CMETADD #### Unless otherwise noted, all testing performed by [place] [address] CLIA: [id number] Front Desk Host: Maurice Coello M.D. Lymphocytes #/vol (Bld) 1.6 K/mcL Normal 1.0-3.7 [facility] Comment on above: Performed By: #### C BCWOD, PT, PTT, DDIMR, EDCTNI, NTPROBNP, CHEM8, LIPASE, CMETADD #### Unless otherwise noted, all testing performed by [place] [address] CLIA: [id number] Front Desk Host: Maurice Coello M.D. Lymphocytes/100 WBC (Bld) 24.6 % Normal [facility] Comment on above: Performed By: #### C BCWOD, PT, PTT, DDIMR, EDCTNI, NTPROBNP, CHEM8, LIPASE, CMETADD #### Unless otherwise noted, all testing performed by [place] [address] CLIA: [id number] Front Desk Host: Maurice Coello M.D. MCH Entitic mass (RBC) 25.4 pg Low 27.9-33.9 [facility] Comment on above: Performed By: #### C BCWOD, PT, PTT, DDIMR, EDCTNI, NTPROBNP, CHEM8, LIPASE, CMETADD #### Unless otherwise noted, all testing performed by [place] [address] CLIA: [id number] Front Desk Host: Maurice Coello M.D. MCHC mass conc (RBC) 31.5 g/dL Low 33.1-35.1 [facility] Comment on above: Performed By: #### C BCWOD, PT, PTT, DDIMR, EDCTNI, NTPROBNP, CHEM8, LIPASE, CMETADD #### Unless otherwise noted, all testing performed by [place] [address] CLIA: [id number] Front Desk Host: Maurice Coello M.D. MCV Entitic volume (RBC) 80.7 fL Low 82.6-98.9 [facility] Comment on above: Performed By: #### C BCWOD, PT, PTT, DDIMR, EDCTNI, NTPROBNP, CHEM8, LIPASE, CMETADD #### Unless otherwise noted, all testing performed by [place] [address] CLIA: [id number] Front Desk Host: Maurice Coello M.D. Monocytes #/vol (Bld) 0.6 K/mcL Normal 0.1-0.[address] [facility] Comment on above: Performed By: #### C BCWOD, PT, PTT, DDIMR, EDCTNI, NTPROBNP, CHEM8, LIPASE, CMETADD #### Unless otherwise noted, all testing performed by [place] [address] CLIA: [id number] Front Desk Host: Maurice Coello M.D. Monocytes/100 WBC (Bld) 8.8 % Normal [facility] Comment on above: Performed By: #### C BCWOD, PT, PTT, DDIMR, EDCTNI, NTPROBNP, CHEM8, LIPASE, CMETADD #### Unless otherwise noted, all testing performed by [place] [address] CLIA: [id number] Front Desk Host: Maurice Coello M.D. Neutrophils #/vol (Bld) 4.2 K/mcL Normal 1.2-6.9 [facility] Comment on above: Performed By: #### C BCWOD, PT, PTT, DDIMR, EDCTNI, NTPROBNP, CHEM8, LIPASE, CMETADD #### Unless otherwise noted, all testing performed by [address] [address] CLIA: [id number] Front Desk Host: Maurice Coello M.D. Platelet mean volume Entitic volume (Bld) 8.1 fL Normal 7.0-10.6 [facility] Comment on above: Performed By: #### C BCWOD, PT, PTT, DDIMR, EDCTNI, NTPROBNP, CHEM8, LIPASE, CMETADD #### Unless otherwise noted, all testing performed by [place] [address] CLIA: [id number] Front Desk Host: Maurice Coello M.D. Platelets #/vol (Bld) 309 K/mcL Normal 162-[address] [facility] Comment on above: Performed By: #### C BCWOD, PT, PTT, DDIMR, EDCTNI, NTPROBNP, CHEM8, LIPASE, CMETADD #### Unless otherwise noted, all testing performed by [place] [address] CLIA: [id number] Front Desk Host: Maurice Coello M.D. RBC #/vol (Bld) 4.20 M/mcL Normal 3.7-5.0 [facility] Comment on above: Performed By: #### C BCWOD, PT, PTT, DDIMR, EDCTNI, NTPROBNP, CHEM8, LIPASE, CMETADD #### Unless otherwise noted, all testing performed by [place] [address] CLIA: [id number] Front Desk Host: Maurice Coello M.D. Segmented Neut % 63.3 % Normal [facility] Comment on above: Performed By: #### C BCWOD, PT, PTT, DDIMR, EDCTNI, NTPROBNP, CHEM8, LIPASE, CMETADD #### Unless otherwise noted, all testing performed by [place] [address] CLIA: [id number] Front Desk Host: Maurice Coello M.D. WBC #/vol (Bld) 6.6 K/mcL Normal 3.4-10.6 [facility] Comment on above: Performed By: #### C BCWOD, PT, PTT, DDIMR, EDCTNI, NTPROBNP, CHEM8, LIPASE, CMETADD #### Unless otherwise noted, all testing performed by [place] [address] CLIA: [id number] Front Desk Host: Maurice Coello M.D. Cardiac Troponin-Ion 018 Troponin I.cardiac mass conc No Biomarker evidence of myocardial injury within the past 14 hours. Normal [facility] Comment on above: Performed By: #### C BCWOD, PT, PTT, DDIMR, EDCTNI, NTPROBNP, CHEM8, LIPASE, CMETADD #### Unless otherwise noted, all testing performed by [place] [address] CLIA: [id number] Front Desk Host: Maurice Coello M.D. Troponin I.cardiac mass conc ng/mL Normal < 45.0 [facility] Comment on above: Result Comment: Elev ation [...] Unless otherwise noted, all testing performed by [address] [address] CLIA: [id number] Front Desk Host: Maurice Coello M.D. LUNG VENTILATION AND PERFUSI ONon 06-21-2018 LUNG VENTILATION AND PERFUSION Final Report Accession No: [id number] Performed: Jun 21 2018 12:54PM Examination: [...] Trans: dw : cc: Normal [facility] Basic Metabolic Panelon 06-06 Calcium mass conc 8.8 mg/dL Normal 8.4-10.2 [facility] Comment on above: Performed By: #### C BCWOD, PT, PTT, DDIMR, EDCTNI, NTPROBNP, CHEM8, LIPASE, CMETADD #### Unless otherwise noted, all testing performed by [place] [address] CLIA: [id number] Front Desk Host: Maurice Coello M.D. Chloride molar conc 98 mmol/L Normal 98-108 [facility] Comment on above: Performed By: #### C BCWOD, PT, PTT, DDIMR, EDCTNI, NTPROBNP, CHEM8, LIPASE, CMETADD #### Unless otherwise noted, all testing performed by [place] [address] CLIA: [id number] Front Desk Host: Maurice Coello M.D. CO2 molar conc 24 mmol/L Normal 21-32 [facility] Comment on above: Performed By: #### C BCWOD, PT, PTT, DDIMR, EDCTNI, NTPROBNP, CHEM8, LIPASE, CMETADD #### Unless otherwise noted, all testing performed by [place] [address] CLIA: [id number] Front Desk Host: Maurice Coello M.D. Creatinine mass conc 1.51 mg/dL High 0.40-1.10 [facility] Comment on above: Performed By: #### C BCWOD, PT, PTT, DDIMR, EDCTNI, NTPROBNP, CHEM8, LIPASE, CMETADD #### Unless otherwise noted, all testing performed by [place] [address] CLIA: [id number] Front Desk Host: Maurice Coello M.D. GFR/1.73 sq M predicted among blacks MDRD vol rate/area (S/P/Bld) 43 mL/min/{1.73_m2} Low >60 [facility] Comment on above: Result Comment: Afri can [place] GFR Calc Performed By: #### C BCWOD, PT, PTT, DDIMR, EDCTNI, NTPROBNP, CHEM8, LIPASE, CMETADD #### Unless otherwise noted, all testing performed by [place] [address] CLIA: [id number] Front Desk Host: Maurice Coello M.D. GFR/1.73 sq M predicted among non-blacks MDRD vol rate/area (S/P/Bld) 35 mL/min/{1.73_m2} Low >60 [facility] Comment on above: Result Comment: Non- GFR [...] Unless otherwise noted, all testing performed by [place] [address] CLIA: [id number] Front Desk Host: Maurice Coello M.D. Glucose mass conc 113 mg/dL High 70-99 [facility] Comment on above: Result Comment: This test result might be falsely depressed or falsely elevated on samples drawn from patients taking Sulfasalazine and Sulfapyridine. Venipuncture should occur prior to taking either of these drugs. Performed By: #### C BCWOD, PT, PTT, DDIMR, EDCTNI, NTPROBNP, CHEM8, LIPASE, CMETADD #### Unless otherwise noted, all testing performed by [place] [address] CLIA: [id number] Front Desk Host: Maurice Coello M.D. Potassium molar conc 4.9 mmol/L Normal 3.5-5.1 [facility] Comment on above: Performed By: #### C BCWOD, PT, PTT, DDIMR, EDCTNI, NTPROBNP, CHEM8, LIPASE, CMETADD #### Unless otherwise noted, all testing performed by [place] [address] CLIA: [id number] Front Desk Host: Maurice Coello M.D. Sodium molar conc 132 mmol/L Low 135-145 [facility] Comment on above: Performed By: #### C BCWOD, PT, PTT, DDIMR, EDCTNI, NTPROBNP, CHEM8, LIPASE, CMETADD #### Unless otherwise noted, all testing performed by [place] [address] CLIA: [id number] Front Desk Host: Maurice Coello M.D. Urea nitrogen mass conc 13 mg/dL Normal 8-25 [facility] Comment on above: Performed By: #### C BCWOD, PT, PTT, DDIMR, EDCTNI, NTPROBNP, CHEM8, LIPASE, CMETADD #### Unless otherwise noted, all testing performed by [place] [address] CLIA: [id number] Front Desk Host: Maurice Coello M.D. CBC w/o Diffon 06-20-2018 Erythrocyte distribution width Ratio (RBC) 15.4 % High 10.0-14.4 [facility] Comment on above: Performed By: #### C BCWOD, PT, PTT, DDIMR, EDCTNI, NTPROBNP, CHEM8, LIPASE, CMETADD #### Unless otherwise noted, all testing performed by [place] [address] CLIA: [id number] Front Desk Host: Maurice Coello M.D. Hematocrit Volume Fraction (Bld) 36.2 % Normal 34.4-44.8 [facility] Comment on above: Performed By: #### C BCWOD, PT, PTT, DDIMR, EDCTNI, NTPROBNP, CHEM8, LIPASE, CMETADD #### Unless otherwise noted, all testing performed by [place] [address] CLIA: [id number] Front Desk Host: Maurice Coello M.D. Hemoglobin mass conc (Bld) 11.7 g/dL Normal 11.6-15.4 [facility] Comment on above: Performed By: #### C BCWOD, PT, PTT, DDIMR, EDCTNI, NTPROBNP, CHEM8, LIPASE, CMETADD #### Unless otherwise noted, all testing performed by [place] [address] CLIA: [id number] Front Desk Host: Maurice Coello M.D. MCH Entitic mass (RBC) 25.8 pg Low 27.9-33.9 [facility] Comment on above: Performed By: #### C BCWOD, PT, PTT, DDIMR, EDCTNI, NTPROBNP, CHEM8, LIPASE, CMETADD #### Unless otherwise noted, all testing performed by [place] [address] CLIA: [id number] Front Desk Host: Maurice Coello M.D. MCHC mass conc (RBC) 32.3 g/dL Low 33.1-35.1 [facility] Comment on above: Performed By: #### C BCWOD, PT, PTT, DDIMR, EDCTNI, NTPROBNP, CHEM8, LIPASE, CMETADD #### Unless otherwise noted, all testing performed by [place] [address] CLIA: [id number] Front Desk Host: Maurice Coello M.D. MCV Entitic volume (RBC) 79.7 fL Low 82.6-98.9 [facility] Comment on above: Performed By: #### C BCWOD, PT, PTT, DDIMR, EDCTNI, NTPROBNP, CHEM8, LIPASE, CMETADD #### Unless otherwise noted, all testing performed by [place] [address] CLIA: [id number] Front Desk Host: Maurice Coello M.D. Platelet mean volume Entitic volume (Bld) 7.5 fL Normal 7.0-10.6 [facility] Comment on above: Performed By: #### C BCWOD, PT, PTT, DDIMR, EDCTNI, NTPROBNP, CHEM8, LIPASE, CMETADD #### Unless otherwise noted, all testing performed by [place] [address] CLIA: [id number] Front Desk Host: Maurice Coello M.D. Platelets #/vol (Bld) 341 K/mcL Normal 162-[address] [facility] Comment on above: Performed By: #### C BCWOD, PT, PTT, DDIMR, EDCTNI, NTPROBNP, CHEM8, LIPASE, CMETADD #### Unless otherwise noted, all testing performed by [place] [address] CLIA: [id number] Front Desk Host: Maurice Coello M.D. RBC #/vol (Bld) 4.53 M/mcL Normal 3.7-5.0 [facility] Comment on above: Performed By: #### C BCWOD, PT, PTT, DDIMR, EDCTNI, NTPROBNP, CHEM8, LIPASE, CMETADD #### Unless otherwise noted, all testing performed by [place] [address] CLIA: [id number] Front Desk Host: Maurice Coello M.D. WBC #/vol (Bld) 9.1 K/mcL Normal 3.4-10.6 [facility] Comment on above: Performed By: #### C BCWOD, PT, PTT, DDIMR, EDCTNI, NTPROBNP, CHEM8, LIPASE, CMETADD #### Unless otherwise noted, all testing performed by [facility] [address] [place], [place] [address] CLIA: [id number] Front Desk Host: Maurice Coello M.D. CHEST (ONE VIEW ONLY)on 06-06 CHEST (ONE VIEW ONLY) Final Report Accession No: [id number] Performed: Jun 20 2018 5:35PM Examination: [...] Trans: tk : cc: Normal [facility] CPKon 06-20-2018 CPK 413 U/L High 40-170 [facility] Comment on above: Performed By: #### C BCWOD, PT, PTT, DDIMR, EDCTNI, NTPROBNP, CHEM8, LIPASE, CMETADD #### Unless otherwise noted, all testing performed by [facility] [address], [place] [address] CLIA: [id number] Front Desk Host: Maurice Coello M.D. Cardiac Troponin-Ion 018 Troponin I.cardiac mass conc ng/mL Normal < 45.0 [facility] Comment on above: Result Comment: Elev ation [...] Unless otherwise noted, all testing performed by [facility] [address] [facility]. [place], [place] [address] CLIA: [id number] Front Desk Host: Maurice Coello M.D. D-Dimeron 06-20-2018 D-Dimer 0.90 mcg/ml (FEU) High < .5 [facility] Comment on above: Result Comment: This test is intended for use in conjunction with a clinical pretest probability (PTP) assessment model to exclude pulmonary embolism (PE) and deep vein thrombosis (DVT) in outpatients suspected of PE or DVT. Performed By: #### C BCWOD, PT, PTT, DDIMR, EDCTNI, NTPROBNP, CHEM8, LIPASE, CMETADD #### Unless otherwise noted, all testing performed by [facility] [address] [facility]. [place], [place] [address] CLIA: [id number] Front Desk Host: Maurice Coello M.D. ED Cardiac Troponin-Ion 06-06 Troponin I.cardiac mass conc ng/mL Normal < 45 [facility] Comment on above: Result Comment: Elev ation [...] Unless otherwise noted, all testing performed by [place] [address] CLIA: [id number] Front Desk Host: Maurice Coello M.D. Lipid Panelon 06-20-2018 Cholesterol in HDL mass conc 41 mg/dL Normal 40-59 [facility] Comment on above: Performed By: #### C BCWOD, PT, PTT, DDIMR, EDCTNI, NTPROBNP, CHEM8, LIPASE, CMETADD #### Unless otherwise noted, all testing performed by [place] [address] CLIA: [id number] Front Desk Host: Maurice Coello M.D. Cholesterol in LDL mass conc 122 mg/dL Normal 10-150 [facility] Comment on above: Performed By: #### C BCWOD, PT, PTT, DDIMR, EDCTNI, NTPROBNP, CHEM8, LIPASE, CMETADD #### Unless otherwise noted, all testing performed by [place] [address] CLIA: [id number] Front Desk Host: Maurice Coello M.D. Cholesterol in VLDL mass conc 42 mg/dL High 5-40 [facility] Comment on above: Performed By: #### C BCWOD, PT, PTT, DDIMR, EDCTNI, NTPROBNP, CHEM8, LIPASE, CMETADD #### Unless otherwise noted, all testing performed by [place] [address] CLIA: [id number] Front Desk Host: Maurice Coello M.D. Cholesterol mass conc 205 mg/dL High 100-[address] [facility] Comment on above: Performed By: #### C BCWOD, PT, PTT, DDIMR, EDCTNI, NTPROBNP, CHEM8, LIPASE, CMETADD #### Unless otherwise noted, all testing performed by [place] [address] CLIA: [id number] Front Desk Host: Maurice Coello M.D. Cholesterol.total/Camille sterol in HDL mass ratio 5.0 {ratio} Normal 3.2-5.0 [facility] Comment on above: Result Comment: Fema le Coronary Heart Disease Risk Factor (CHDRF): Average risk= 4.4 1/2 Average risk= 3.3 2 times Average risk= 7.1 Performed By: #### C BCWOD, PT, PTT, DDIMR, EDCTNI, NTPROBNP, CHEM8, LIPASE, CMETADD #### Unless otherwise noted, all testing performed by [place] [address] CLIA: [id number] Front Desk Host: Maurice Coello M.D. Triglyceride mass conc 209 mg/dL High 25-120 [facility] Comment on above: Performed By: #### C BCWOD, PT, PTT, DDIMR, EDCTNI, NTPROBNP, CHEM8, LIPASE, CMETADD #### Unless otherwise noted, all testing performed by [place] [address] CLIA: [id number] Front Desk Host: Maurice Coello M.D. Troponin I.cardiac mass conc No Biomarker evidence of myocardial injury within the past 14 hours. Normal [facility] Comment on above: Performed By: #### C BCWOD, PT, PTT, DDIMR, EDCTNI, NTPROBNP, CHEM8, LIPASE, CMETADD #### Unless otherwise noted, all testing performed by [place] [address] CLIA: [id number] Front Desk Host: Maurice Coello M.D. NT-Pro BNP, Serumon 06-20-20 18 Natriuretic peptide B mass conc (Bld) 494 pg/mL High 0-125 [facility] Comment on above: Performed By: #### C BCWOD, PT, PTT, DDIMR, EDCTNI, NTPROBNP, CHEM8, LIPASE, CMETADD #### Unless otherwise noted, all testing performed by [place] [address] CLIA: [id number] Front Desk Host: Maurice Coello M.D. Partial Thromboplastin Timeo n 06-20-2018 aPTT Coag time (Bld) 30 s Normal 23.0-34.0 [facility] Comment on above: Result Comment: Uday silva therapeutic range for PTT is 68-104 sec. Performed By: #### C BCWOD, PT, PTT, DDIMR, EDCTNI, NTPROBNP, CHEM8, LIPASE, CMETADD #### Unless otherwise noted, all testing performed by [place] [address] CLIA: [id number] Front Desk Host: Maurice Coello M.D. Protimeon 06-20-2018 INR Coag RelTime (PPP) 0.99 {INR} Normal [facility] Comment on above: Result Comment: The [employer] recommended therapeutic range for Warfarin (Coumadin) therapy goals: PROPHYLAXIS/TREATMENT of: INR Venous Thrombosis, Pulmonary Embolism 2.0-3.0 Prevention of VTE (Orthopedic Surgery) 2.0-3.0 Atrial Fibrillation 2.0-3.0 Myocardial Infarction 2.0-3.0 Mechanical Prosthetic Heart Valves (Aortic position) 2.0-3.0 Mechanical Prosthetic Heart Valves (Mitral Position) 2.5-3.5 [employer] evidence-based clinical practice guidelines. CHEST. 2012 (9th ed) Performed By: #### C BCWOD, PT, PTT, DDIMR, EDCTNI, NTPROBNP, CHEM8, LIPASE, CMETADD #### Unless otherwise noted, all testing performed by [place] [address] CLIA: [id number] Front Desk Host: Maurice Coello M.D. Prothrombin time (PT) Coag time (PPP) 12.8 s Normal 11.8-14.3 [facility] Comment on above: Performed By: #### C BCWOD, PT, PTT, DDIMR, EDCTNI, NTPROBNP, CHEM8, LIPASE, CMETADD #### Unless otherwise noted, all testing performed by [place] [address] CLIA: [id number] Front Desk Host: Maurice Coello M.D. Urinalysis, Routineon 2017 Bilirubin,Urine Negative Normal NEG;NEGATIVE [facility] Comment on above: Performed By: #### C BCWOD, PT, PTT, DDIMR, EDCTNI, NTPROBNP, CHEM8, LIPASE, CMETADD #### Unless otherwise noted, all testing performed by [place] [address] CLIA: [id number] Front Desk Host: Maurice Coello M.D. Blood,Urine Negative Normal NEG;NEGATIVE [facility] Comment on above: Performed By: #### C BCWOD, PT, PTT, DDIMR, EDCTNI, NTPROBNP, CHEM8, LIPASE, CMETADD #### Unless otherwise noted, all testing performed by [place] [address] CLIA: [id number] Front Desk Host: Maurice Coello M.D. Character Nom (U) Clear Normal [facility] Comment on above: Performed By: #### C BCWOD, PT, PTT, DDIMR, EDCTNI, NTPROBNP, CHEM8, LIPASE, CMETADD #### Unless otherwise noted, all testing performed by [place] [address] CLIA: [id number] Front Desk Host: Maurice Coello M.D. Color Nom (U) Yellow Normal [facility] Comment on above: Performed By: #### C BCWOD, PT, PTT, DDIMR, EDCTNI, NTPROBNP, CHEM8, LIPASE, CMETADD #### Unless otherwise noted, all testing performed by [place] [phone] CLIA: [id number] Front Desk Host: Maurice Coello M.D. Glucose Ql (U) Negative Normal NEG;NEGATIVE [facility] Comment on above: Performed By: #### C BCWOD, PT, PTT, DDIMR, EDCTNI, NTPROBNP, CHEM8, LIPASE, CMETADD #### Unless otherwise noted, all testing performed by [place] [address] CLIA: [id number] Front Desk Host: Maurice Coello M.D. Ketone,Urine Negative Normal NEG;NEGATIVE [facility] Comment on above: Performed By: #### C BCWOD, PT, PTT, DDIMR, EDCTNI, NTPROBNP, CHEM8, LIPASE, CMETADD #### Unless otherwise noted, all testing performed by [place] [address] CLIA: [id number] Front Desk Host: Maurice Coello M.D. Leuk.Esterase,Urine Negative Normal Negative [facility] Comment on above: Performed By: #### C BCWOD, PT, PTT, DDIMR, EDCTNI, NTPROBNP, CHEM8, LIPASE, CMETADD #### Unless otherwise noted, all testing performed by [place] [address] CLIA: [id number] Front Desk Host: Maurice Coello M.D. Nitrite,Urine Negative Normal NEG;NEGATIVE [facility] Comment on above: Performed By: #### C BCWOD, PT, PTT, DDIMR, EDCTNI, NTPROBNP, CHEM8, LIPASE, CMETADD #### Unless otherwise noted, all testing performed by [place] [address] CLIA: [id number] Front Desk Host: Maurice Coello M.D. pH (U) 5.0 [pH] Normal 4.5-8.0 [facility] Comment on above: Performed By: #### C BCWOD, PT, PTT, DDIMR, EDCTNI, NTPROBNP, CHEM8, LIPASE, CMETADD #### Unless otherwise noted, all testing performed by [place] [address] CLIA: [id number] Front Desk Host: Maurice Coello M.D. Protein mass conc (U) Negative Normal NEG;NEGATIVE [facility] Comment on above: Performed By: #### C BCWOD, PT, PTT, DDIMR, EDCTNI, NTPROBNP, CHEM8, LIPASE, CMETADD #### Unless otherwise noted, all testing performed by [place] [address] CLIA: [id number] Front Desk Host: Maurice Coello M.D. Specific [place],Urine 1.004 Normal 1.003-1.029 [facility] Comment on above: Performed By: #### C BCWOD, PT, PTT, DDIMR, EDCTNI, NTPROBNP, CHEM8, LIPASE, CMETADD #### Unless otherwise noted, all testing performed by [place] [address] CLIA: [id number] Front Desk Host: Maurice Coello M.D. Squamous Epithelial < 1 Normal 0-40 [facility] Comment on above: Performed By: #### C BCWOD, PT, PTT, DDIMR, EDCTNI, NTPROBNP, CHEM8, LIPASE, CMETADD #### Unless otherwise noted, all testing performed by [place] [address] CLIA: [id number] Front Desk Host: Maurice Coello M.D. Urobilinogen,Urine < 2.0 Normal <2 [facility] Comment on above: Performed By: #### C BCWOD, PT, PTT, DDIMR, EDCTNI, NTPROBNP, CHEM8, LIPASE, CMETADD #### Unless otherwise noted, all testing performed by [place] [address] CLIA: [id number] Front Desk Host: Maurice Coello M.D. WBC LM.HPF #/area (Urine sed) /[HPF] Normal 0-5 [facility] Comment on above: Performed By: #### C BCWOD, PT, PTT, DDIMR, EDCTNI, NTPROBNP, CHEM8, LIPASE, CMETADD #### Unless otherwise noted, all testing performed by [place] [address] CLIA: [id number] Front Desk Host: Maurice Coello M.D. SHOULDER 2 OR MORE VIEWSon 0 05-18-2018 SHOULDER 2 OR MORE VIEWS Final Report Accession No: [id number] Performed: May 18 2018 9:38AM Examination: [...] Trans: n/a : cc: Normal [facility] BUN and Creatinineon 04--2 018 Creatinine 1.60 mg/dL High 0.40-1.10 [facility] Comment on above: Performed By: #### C BCWOD, PT, PTT, DDIMR, EDCTNI, NTPROBNP, CHEM8, LIPASE, CMETADD #### Unless otherwise noted, all testing performed by [place] [address] CLIA: [id number] Front Desk Host: Maurice Coello M.D. eGFR (black) 40 mL/min/{1.73_m2} Low >60 [facility] Comment on above: Result Comment: Afri can [place] GFR Calc Performed By: #### C BCWOD, PT, PTT, DDIMR, EDCTNI, NTPROBNP, CHEM8, LIPASE, CMETADD #### Unless otherwise noted, all testing performed by [place] [address] CLIA: [id number] Front Desk Host: Maurice Coello M.D. eGFR (non-black) 33 mL/min/{1.73_m2} Low >60 [facility] Comment on above: Result Comment: Non- GFR [...] Unless otherwise noted, all testing performed by [place] [address] CLIA: [id number] Front Desk Host: Maurice Coello M.D. Interpretation and review of laboratory results Abnormal Invalid Interpretation Code [facility] Urea nitrogen 14 mg/dL Normal 8-25 [facility] Comment on above: Performed By: #### C BCWOD, PT, PTT, DDIMR, EDCTNI, NTPROBNP, CHEM8, LIPASE, CMETADD #### Unless otherwise noted, all testing performed by [place] [address] CLIA: [id number] Front Desk Host: Maurice Coello M.D. Electrolyte Panelon 02-06-20 18 Chloride 104 mmol/L Normal 98-108 [facility] Comment on above: Performed By: #### C BCWOD, PT, PTT, DDIMR, EDCTNI, NTPROBNP, CHEM8, LIPASE, CMETADD #### Unless otherwise noted, all testing performed by [place] [address] CLIA: [id number] Front Desk Host: Maurice Coello M.D. CO2 27 mmol/L Normal 21-32 [facility] Comment on above: Performed By: #### C BCWOD, PT, PTT, DDIMR, EDCTNI, NTPROBNP, CHEM8, LIPASE, CMETADD #### Unless otherwise noted, all testing performed by [place] [address] CLIA: [id number] Front Desk Host: Maurice Coello M.D. Potassium 4.5 mmol/L Normal 3.5-5.1 [facility] Comment on above: Performed By: #### C BCWOD, PT, PTT, DDIMR, EDCTNI, NTPROBNP, CHEM8, LIPASE, CMETADD #### Unless otherwise noted, all testing performed by [place] [address] CLIA: [id number] Front Desk Host: Maurice Coello M.D. Sodium 139 mmol/L Normal 135-145 [facility] Comment on above: Performed By: #### C BCWOD, PT, PTT, DDIMR, EDCTNI, NTPROBNP, CHEM8, LIPASE, CMETADD #### Unless otherwise noted, all testing performed by [place] [address] CLIA: [id number] Front Desk Host: Maurice Coello M.D. Hemoglobin and Hematocriton 02-05-2018 Hematocrit (HCT) 37.8 % Invalid Interpretation Code 34.4 - 44.8 % [facility] Hemoglobin (HGB) 12.2 g/dL Normal 11.6-15.4 [facility] Comment on above: Performed By: #### C BCWOD, PT, PTT, DDIMR, EDCTNI, NTPROBNP, CHEM8, LIPASE, CMETADD #### Unless otherwise noted, all testing performed by [place] [address] CLIA: [id number] Front Desk Host: Maurice Coello M.D. Hgb and Hcton 02-05-2018 Hematocrit Volume Fraction (Bld) 37.8 % Normal 34.4-44.8 [facility] Comment on above: Performed By: #### C BCWOD, PT, PTT, DDIMR, EDCTNI, NTPROBNP, CHEM8, LIPASE, CMETADD #### Unless otherwise noted, all testing performed by [place] [address] CLIA: [id number] Front Desk Host: Maurice Coello M.D. Protein Panel, Urineon 02-05 Creatinine, Urine Random 67.60 mg/dL Normal [facility] Comment on above: Result Comment: No e stablished reference range. Performed By: #### C BCWOD, PT, PTT, DDIMR, EDCTNI, NTPROBNP, CHEM8, LIPASE, CMETADD #### Unless otherwise noted, all testing performed by [place] [address] CLIA: [id number] Front Desk Host: Maurice Coello M.D. Interpretation and review of laboratory results Abnormal Invalid Interpretation Code [facility] Protein Creatinine Ratio 0.21 High 0.0-0.2 [facility] Comment on above: Performed By: #### C BCWOD, PT, PTT, DDIMR, EDCTNI, NTPROBNP, CHEM8, LIPASE, CMETADD #### Unless otherwise noted, all testing performed by [place] [address] CLIA: [id number] Front Desk Host: Maurice Coello M.D. Protein mass conc (U) 14.3 mg/dL Normal [facility] Comment on above: Performed By: #### C BCWOD, PT, PTT, DDIMR, EDCTNI, NTPROBNP, CHEM8, LIPASE, CMETADD #### Unless otherwise noted, all testing performed by [place] [address] CLIA: [id number] Front Desk Host: Maurice Coello M.D. Protein, Urine Random 14.3 mg/dL Invalid Interpretation Code [facility] Protein/Creatinine Ratio, Urine 0.21 1 High 0.0 - 0.2 [facility] Basic Metabolic Panelon - Calcium mass conc 8.4 mg/dL Normal 8.4-10.2 [facility] Comment on above: Performed By: #### C BCWOD, PT, PTT, DDIMR, EDCTNI, NTPROBNP, CHEM8, LIPASE, CMETADD #### Unless otherwise noted, all testing performed by [place] [address] CLIA: [id number] Front Desk Host: Maurice Coello M.D. Chloride molar conc 107 mmol/L Normal 98-108 [facility] Comment on above: Performed By: #### C BCWOD, PT, PTT, DDIMR, EDCTNI, NTPROBNP, CHEM8, LIPASE, CMETADD #### Unless otherwise noted, all testing performed by [place] [address] CLIA: [id number] Front Desk Host: Maurice Coello M.D. CO2 molar conc 24 mmol/L Normal 21-32 [facility] Comment on above: Performed By: #### C BCWOD, PT, PTT, DDIMR, EDCTNI, NTPROBNP, CHEM8, LIPASE, CMETADD #### Unless otherwise noted, all testing performed by [place] [address] CLIA: [id number] Front Desk Host: Maurice Coello M.D. Creatinine mass conc 1.53 mg/dL High 0.40-1.10 [facility] Comment on above: Performed By: #### C BCWOD, PT, PTT, DDIMR, EDCTNI, NTPROBNP, CHEM8, LIPASE, CMETADD #### Unless otherwise noted, all testing performed by [place] [address] CLIA: [id number] Front Desk Host: Maurice Coello M.D. GFR/1.73 sq M predicted among blacks MDRD vol rate/area (S/P/Bld) 42 mL/min/{1.73_m2} Low >60 [facility] Comment on above: Result Comment: Afri can [place] GFR Calc Performed By: #### C BCWOD, PT, PTT, DDIMR, EDCTNI, NTPROBNP, CHEM8, LIPASE, CMETADD #### Unless otherwise noted, all testing performed by [place] [address] CLIA: [id number] Front Desk Host: Maurice Coello M.D. GFR/1.73 sq M predicted among non-blacks MDRD vol rate/area (S/P/Bld) 35 mL/min/{1.73_m2} Low >60 [facility] Comment on above: Result Comment: Non- GFR [...] Unless otherwise noted, all testing performed by [place] [address] CLIA: [id number] Front Desk Host: Maurice Coello M.D. Glucose mass conc 147 mg/dL High 70-99 [facility] Comment on above: Result Comment: This test result might be falsely depressed or falsely elevated on samples drawn from patients taking Sulfasalazine and Sulfapyridine. Venipuncture should occur prior to taking either of these drugs. Performed By: #### C BCWOD, PT, PTT, DDIMR, EDCTNI, NTPROBNP, CHEM8, LIPASE, CMETADD #### Unless otherwise noted, all testing performed by [place] [address] CLIA: [id number] Front Desk Host: Maurice Coello M.D. Potassium molar conc 5.3 mmol/L High 3.5-5.1 [facility] Comment on above: Performed By: #### C BCWOD, PT, PTT, DDIMR, EDCTNI, NTPROBNP, CHEM8, LIPASE, CMETADD #### Unless otherwise noted, all testing performed by [place] [address] CLIA: [id number] Front Desk Host: Maurice Coello M.D. Sodium molar conc 138 mmol/L Normal 135-145 [facility] Comment on above: Performed By: #### C BCWOD, PT, PTT, DDIMR, EDCTNI, NTPROBNP, CHEM8, LIPASE, CMETADD #### Unless otherwise noted, all testing performed by [place] [address] CLIA: [id number] Front Desk Host: Maurice Coello M.D. Urea nitrogen mass conc 14 mg/dL Normal 8-25 [facility] Comment on above: Performed By: #### C BCWOD, PT, PTT, DDIMR, EDCTNI, NTPROBNP, CHEM8, LIPASE, CMETADD #### Unless otherwise noted, all testing performed by [place] [address] CLIA: [id number] Front Desk Host: Maurice Coello M.D. CBC with Diffon 01-30-2018 Basophils #/vol (Bld) 0.0 K/mcL Normal 0-0.[address] [facility] Comment on above: Performed By: #### C BCWOD, PT, PTT, DDIMR, EDCTNI, NTPROBNP, CHEM8, LIPASE, CMETADD #### Unless otherwise noted, all testing performed by [place] [address] CLIA: [id number] Front Desk Host: Maurice Coello M.D. Basophils/100 WBC (Bld) 0.3 % Normal [facility] Comment on above: Performed By: #### C BCWOD, PT, PTT, DDIMR, EDCTNI, NTPROBNP, CHEM8, LIPASE, CMETADD #### Unless otherwise noted, all testing performed by [place] [address] CLIA: [id number] Front Desk Host: Maurice Coello M.D. Eosinophils #/vol (Bld) 0.0 K/mcL Normal 0-0.5 [facility] Comment on above: Performed By: #### C BCWOD, PT, PTT, DDIMR, EDCTNI, NTPROBNP, CHEM8, LIPASE, CMETADD #### Unless otherwise noted, all testing performed by [place] [address] CLIA: [id number] Front Desk Host: Maurice Coello M.D. Eosinophils/100 WBC (Bld) 0.1 % Normal [facility] Comment on above: Performed By: #### C BCWOD, PT, PTT, DDIMR, EDCTNI, NTPROBNP, CHEM8, LIPASE, CMETADD #### Unless otherwise noted, all testing performed by [place] [address] CLIA: [id number] Front Desk Host: Maurice Coello M.D. Erythrocyte distribution width Ratio (RBC) 17.8 % High 10.0-14.4 [facility] Comment on above: Performed By: #### C BCWOD, PT, PTT, DDIMR, EDCTNI, NTPROBNP, CHEM8, LIPASE, CMETADD #### Unless otherwise noted, all testing performed by [place] [address] CLIA: [id number] Front Desk Host: Maurice Coello M.D. Hematocrit Volume Fraction (Bld) 34.8 % Normal 34.4-44.8 [facility] Comment on above: Performed By: #### C BCWOD, PT, PTT, DDIMR, EDCTNI, NTPROBNP, CHEM8, LIPASE, CMETADD #### Unless otherwise noted, all testing performed by [place] [address] CLIA: [id number] Front Desk Host: Maurice Coello M.D. Hemoglobin mass conc (Bld) 11.3 g/dL Low 11.6-15.4 [facility] Comment on above: Performed By: #### C BCWOD, PT, PTT, DDIMR, EDCTNI, NTPROBNP, CHEM8, LIPASE, CMETADD #### Unless otherwise noted, all testing performed by [place] [address] CLIA: [id number] Front Desk Host: Maurice Coello M.D. Lymphocytes #/vol (Bld) 0.6 K/mcL Low 1.0-3.7 [facility] Comment on above: Performed By: #### C BCWOD, PT, PTT, DDIMR, EDCTNI, NTPROBNP, CHEM8, LIPASE, CMETADD #### Unless otherwise noted, all testing performed by [place] [address] CLIA: [id number] Front Desk Host: Maurice Coello M.D. Lymphocytes/100 WBC (Bld) 8.3 % Normal [facility] Comment on above: Performed By: #### C BCWOD, PT, PTT, DDIMR, EDCTNI, NTPROBNP, CHEM8, LIPASE, CMETADD #### Unless otherwise noted, all testing performed by [place] [address] CLIA: [id number] Front Desk Host: Maurice Coello M.D. MCH Entitic mass (RBC) 26.1 pg Low 27.9-33.9 [facility] Comment on above: Performed By: #### C BCWOD, PT, PTT, DDIMR, EDCTNI, NTPROBNP, CHEM8, LIPASE, CMETADD #### Unless otherwise noted, all testing performed by [place] [address] CLIA: [id number] Front Desk Host: Maurice Coello M.D. MCHC mass conc (RBC) 32.5 g/dL Low 33.1-35.1 [facility] Comment on above: Performed By: #### C BCWOD, PT, PTT, DDIMR, EDCTNI, NTPROBNP, CHEM8, LIPASE, CMETADD #### Unless otherwise noted, all testing performed by [place] [address] CLIA: [id number] Front Desk Host: Maurice Coello M.D. MCV Entitic volume (RBC) 80.3 fL Low 82.6-98.9 [facility] Comment on above: Performed By: #### C BCWOD, PT, PTT, DDIMR, EDCTNI, NTPROBNP, CHEM8, LIPASE, CMETADD #### Unless otherwise noted, all testing performed by [place] [address] CLIA: [id number] Front Desk Host: Maurice Coello M.D. Monocytes #/vol (Bld) 0.1 K/mcL Normal 0.1-0.[address] [facility] Comment on above: Performed By: #### C BCWOD, PT, PTT, DDIMR, EDCTNI, NTPROBNP, CHEM8, LIPASE, CMETADD #### Unless otherwise noted, all testing performed by [place] [address] CLIA: [id number] Front Desk Host: Maurice Coello M.D. Monocytes/100 WBC (Bld) 0.7 % Normal [facility] Comment on above: Performed By: #### C BCWOD, PT, PTT, DDIMR, EDCTNI, NTPROBNP, CHEM8, LIPASE, CMETADD #### Unless otherwise noted, all testing performed by [place] [address] CLIA: [id number] Front Desk Host: Maurice Coello M.D. Neutrophils #/vol (Bld) 6.8 K/mcL Normal 1.2-6.9 [facility] Comment on above: Performed By: #### C BCWOD, PT, PTT, DDIMR, EDCTNI, NTPROBNP, CHEM8, LIPASE, CMETADD #### Unless otherwise noted, all testing performed by [place] [address] CLIA: [id number] Front Desk Host: Maurice Coello M.D. Platelet mean volume Entitic volume (Bld) 8.3 fL Normal 7.0-10.6 [facility] Comment on above: Performed By: #### C BCWOD, PT, PTT, DDIMR, EDCTNI, NTPROBNP, CHEM8, LIPASE, CMETADD #### Unless otherwise noted, all testing performed by [place] [address] CLIA: [id number] Front Desk Host: Maurice Coello M.D. Platelets #/vol (Bld) 281 K/mcL Normal 162-[address] [facility] Comment on above: Performed By: #### C BCWOD, PT, PTT, DDIMR, EDCTNI, NTPROBNP, CHEM8, LIPASE, CMETADD #### Unless otherwise noted, all testing performed by [place] [address] CLIA: [id number] Front Desk Host: Maurice Coello M.D. RBC #/vol (Bld) 4.34 M/mcL Normal 3.7-5.0 [facility] Comment on above: Performed By: #### C BCWOD, PT, PTT, DDIMR, EDCTNI, NTPROBNP, CHEM8, LIPASE, CMETADD #### Unless otherwise noted, all testing performed by [place] [address] CLIA: [id number] Front Desk Host: Maurice Coello M.D. Segmented Neut % 90.6 % Normal [facility] Comment on above: Performed By: #### C BCWOD, PT, PTT, DDIMR, EDCTNI, NTPROBNP, CHEM8, LIPASE, CMETADD #### Unless otherwise noted, all testing performed by [address] [place], [place] [address] CLIA: [id number] Front Desk Host: Maurice Coello M.D. WBC #/vol (Bld) 7.5 K/mcL Normal 3.4-10.6 [facility] Comment on above: Performed By: #### C BCWOD, PT, PTT, DDIMR, EDCTNI, NTPROBNP, CHEM8, LIPASE, CMETADD #### Unless otherwise noted, all testing performed by [place] [address] CLIA: [id number] Front Desk Host: Maurice Coello M.D. Cardiac Troponin-Ion 018 Troponin I.cardiac mass conc No Biomarker evidence of myocardial injury within the past 14 hours. Normal [facility] Comment on above: Performed By: #### C BCWOD, PT, PTT, DDIMR, EDCTNI, NTPROBNP, CHEM8, LIPASE, CMETADD #### Unless otherwise noted, all testing performed by [place] [address] CLIA: [id number] Front Desk Host: Maurice Coello M.D. Troponin I.cardiac mass conc ng/mL Normal < 45.0 [facility] Comment on above: Result Comment: Elev ation [...] Unless otherwise noted, all testing performed by [place] [address] CLIA: [id number] Front Desk Host: Maurice Coello M.D. Troponin I.cardiac mass conc No Biomarker evidence of myocardial injury within the past 14 hours. Normal [facility] Comment on above: Performed By: #### C BCWOD, PT, PTT, DDIMR, EDCTNI, NTPROBNP, CHEM8, LIPASE, CMETADD #### Unless otherwise noted, all testing performed by [place] [address] CLIA: [id number] Front Desk Host: Maurice Coello M.D. LUNG VENTILATION AND PERFUSI ONon 01-30-2018 LUNG VENTILATION AND PERFUSION Final Report Accession No: [id number] Performed: Jan 30 2018 2:17PM Examination: [...] PEREZ M.D. Trans: [email or web address] : cc: Normal [facility] Basic Metabolic Panelon 01-05 Calcium mass conc 8.9 mg/dL Normal 8.4-10.2 [facility] Comment on above: Performed By: #### C BCWOD, PT, PTT, DDIMR, EDCTNI, NTPROBNP, CHEM8, LIPASE, CMETADD #### Unless otherwise noted, all testing performed by [address] [place] [address] CLIA: [id number] Front Desk Host: Maurice Coello M.D. Chloride molar conc 104 mmol/L Normal 98-108 [facility] Comment on above: Performed By: #### C BCWOD, PT, PTT, DDIMR, EDCTNI, NTPROBNP, CHEM8, LIPASE, CMETADD #### Unless otherwise noted, all testing performed by [place] [address] CLIA: [id number] Front Desk Host: Maurice Coello M.D. CO2 molar conc 27 mmol/L Normal 21-32 [facility] Comment on above: Performed By: #### C BCWOD, PT, PTT, DDIMR, EDCTNI, NTPROBNP, CHEM8, LIPASE, CMETADD #### Unless otherwise noted, all testing performed by [place] [address] CLIA: [id number] Front Desk Host: Maurice Coello M.D. Creatinine mass conc 1.66 mg/dL High 0.40-1.10 [facility] Comment on above: Performed By: #### C BCWOD, PT, PTT, DDIMR, EDCTNI, NTPROBNP, CHEM8, LIPASE, CMETADD #### Unless otherwise noted, all testing performed by [place] [address] CLIA: [id number] Front Desk Host: Maurice Coello M.D. GFR/1.73 sq M predicted among blacks MDRD vol rate/area (S/P/Bld) 38 mL/min/{1.73_m2} Low >60 [facility] Comment on above: Result Comment: Afri can [place] GFR Calc Performed By: #### C BCWOD, PT, PTT, DDIMR, EDCTNI, NTPROBNP, CHEM8, LIPASE, CMETADD #### Unless otherwise noted, all testing performed by [address] [place] [address] CLIA: [id number] Front Desk Host: Maurice Coello M.D. GFR/1.73 sq M predicted among non-blacks MDRD vol rate/area (S/P/Bld) 32 mL/min/{1.73_m2} Low >60 [facility] Comment on above: Result Comment: Non- GFR [...] Unless otherwise noted, all testing performed by [place] [address] CLIA: [id number] Front Desk Host: Maurice Coello M.D. Glucose mass conc 124 mg/dL High 70-99 [facility] Comment on above: Result Comment: This test result might be falsely depressed or falsely elevated on samples drawn from patients taking Sulfasalazine and Sulfapyridine. Venipuncture should occur prior to taking either of these drugs. Performed By: #### C BCWOD, PT, PTT, DDIMR, EDCTNI, NTPROBNP, CHEM8, LIPASE, CMETADD #### Unless otherwise noted, all testing performed by [place] [address] CLIA: [id number] Front Desk Host: Maurice Coello M.D. Potassium molar conc 4.5 mmol/L Normal 3.5-5.1 [facility] Comment on above: Performed By: #### C BCWOD, PT, PTT, DDIMR, EDCTNI, NTPROBNP, CHEM8, LIPASE, CMETADD #### Unless otherwise noted, all testing performed by [place] [address] CLIA: [id number] Front Desk Host: Maurice Coello M.D. Sodium molar conc 137 mmol/L Normal 135-145 [facility] Comment on above: Performed By: #### C BCWOD, PT, PTT, DDIMR, EDCTNI, NTPROBNP, CHEM8, LIPASE, CMETADD #### Unless otherwise noted, all testing performed by [place] [address] CLIA: [id number] Front Desk Host: Maurice Coello M.D. Urea nitrogen mass conc 15 mg/dL Normal 8-25 [facility] Comment on above: Performed By: #### C BCWOD, PT, PTT, DDIMR, EDCTNI, NTPROBNP, CHEM8, LIPASE, CMETADD #### Unless otherwise noted, all testing performed by [place] [address] CLIA: [id number] Front Desk Host: Maurice Coello M.D. CBC w/o Diffon 01-29-2018 Erythrocyte distribution width Ratio (RBC) 17.5 % High 10.0-14.4 [facility] Comment on above: Performed By: #### C BCWOD, PT, PTT, DDIMR, EDCTNI, NTPROBNP, CHEM8, LIPASE, CMETADD #### Unless otherwise noted, all testing performed by [place] [address] CLIA: [id number] Front Desk Host: Maurice Coello M.D. Hematocrit Volume Fraction (Bld) 38.5 % Normal 34.4-44.8 [facility] Comment on above: Performed By: #### C BCWOD, PT, PTT, DDIMR, EDCTNI, NTPROBNP, CHEM8, LIPASE, CMETADD #### Unless otherwise noted, all testing performed by [place] [address] CLIA: [id number] Front Desk Host: Maurice Coello M.D. Hemoglobin mass conc (Bld) 12.7 g/dL Normal 11.6-15.4 [facility] Comment on above: Performed By: #### C BCWOD, PT, PTT, DDIMR, EDCTNI, NTPROBNP, CHEM8, LIPASE, CMETADD #### Unless otherwise noted, all testing performed by [place] [phone] CLIA: [id number] Front Desk Host: Maurice Coello M.D. MCH Entitic mass (RBC) 26.1 pg Low 27.9-33.9 [facility] Comment on above: Performed By: #### C BCWOD, PT, PTT, DDIMR, EDCTNI, NTPROBNP, CHEM8, LIPASE, CMETADD #### Unless otherwise noted, all testing performed by [place] [address] CLIA: [id number] Front Desk Host: Maurice Coello M.D. MCHC mass conc (RBC) 32.9 g/dL Low 33.1-35.1 [facility] Comment on above: Performed By: #### C BCWOD, PT, PTT, DDIMR, EDCTNI, NTPROBNP, CHEM8, LIPASE, CMETADD #### Unless otherwise noted, all testing performed by [place] [address] CLIA: [id number] Front Desk Host: Maurice Coello M.D. MCV Entitic volume (RBC) 79.4 fL Low 82.6-98.9 [facility] Comment on above: Performed By: #### C BCWOD, PT, PTT, DDIMR, EDCTNI, NTPROBNP, CHEM8, LIPASE, CMETADD #### Unless otherwise noted, all testing performed by [place] [address] CLIA: [id number] Front Desk Host: Maurice Coello M.D. Platelet mean volume Entitic volume (Bld) 7.8 fL Normal 7.0-10.6 [facility] Comment on above: Performed By: #### C BCWOD, PT, PTT, DDIMR, EDCTNI, NTPROBNP, CHEM8, LIPASE, CMETADD #### Unless otherwise noted, all testing performed by [place] [address] CLIA: [id number] Front Desk Host: Maurice Coello M.D. Platelets #/vol (Bld) 351 K/mcL Normal 162-[address] [facility] Comment on above: Performed By: #### C BCWOD, PT, PTT, DDIMR, EDCTNI, NTPROBNP, CHEM8, LIPASE, CMETADD #### Unless otherwise noted, all testing performed by [place] [address] CLIA: [id number] Front Desk Host: Maurice Coello M.D. RBC #/vol (Bld) 4.84 M/mcL Normal 3.7-5.0 [facility] Comment on above: Performed By: #### C BCWOD, PT, PTT, DDIMR, EDCTNI, NTPROBNP, CHEM8, LIPASE, CMETADD #### Unless otherwise noted, all testing performed by [place] [address] CLIA: [id number] Front Desk Host: Maurice Coello M.D. WBC #/vol (Bld) 7.6 K/mcL Normal 3.4-10.6 [facility] Comment on above: Performed By: #### C BCWOD, PT, PTT, DDIMR, EDCTNI, NTPROBNP, CHEM8, LIPASE, CMETADD #### Unless otherwise noted, all testing performed by [place] [address] CLIA: [id number] Front Desk Host: Maurice Coello M.D. CHEST (ONE VIEW ONLY)on 01-05 CHEST (ONE VIEW ONLY) Final Report Accession No: [id number] Performed: Jan 29 2018 6:55PM Examination: [...] Trans: [email or web address] : cc: Normal [facility] CMET Add-On Testson 01-30-20 Albumin mass conc 3.7 g/dL Normal 3.2-5.2 [facility] Comment on above: Performed By: #### C BCWOD, PT, PTT, DDIMR, EDCTNI, NTPROBNP, CHEM8, LIPASE, CMETADD #### Unless otherwise noted, all testing performed by [place] [address] CLIA: [id number] Front Desk Host: Maurice Coello M.D. ALP enzyme act/vol 107 U/L Normal 40-150 [facility] Comment on above: Performed By: #### C BCWOD, PT, PTT, DDIMR, EDCTNI, NTPROBNP, CHEM8, LIPASE, CMETADD #### Unless otherwise noted, all testing performed by [place] [address] CLIA: [id number] Front Desk Host: Maurice Coello M.D. ALT enzyme act/vol 29 U/L Normal 14-65 [facility] Comment on above: Result Comment: This test result might be falsely depressed or falsely elevated on samples drawn from patients taking Sulfasalazine and Sulfapyridine. Venipuncture should occur prior to taking either of these drugs. Performed By: #### C BCWOD, PT, PTT, DDIMR, EDCTNI, NTPROBNP, CHEM8, LIPASE, CMETADD #### Unless otherwise noted, all testing performed by [place] [address] CLIA: [id number] Front Desk Host: Maurice Coello M.D. AST enzyme act/vol 21 U/L Normal 0-45 [facility] Comment on above: Result Comment: This test result might be falsely depressed or falsely elevated on samples drawn from patients taking Sulfasalazine and Sulfapyridine. Venipuncture should occur prior to taking either of these drugs. Performed By: #### C BCWOD, PT, PTT, DDIMR, EDCTNI, NTPROBNP, CHEM8, LIPASE, CMETADD #### Unless otherwise noted, all testing performed by [place] [address] CLIA: [id number] Front Desk Host: Maurice Coello M.D. Bilirubin mass conc 0.2 mg/dL Low 0.3-1.2 [facility] Comment on above: Performed By: #### C BCWOD, PT, PTT, DDIMR, EDCTNI, NTPROBNP, CHEM8, LIPASE, CMETADD #### Unless otherwise noted, all testing performed by [place] [address] CLIA: [id number] Front Desk Host: Maurice Coello M.D. Protein mass conc 8.2 g/dL High 6.0-8.0 [facility] Comment on above: Performed By: #### C BCWOD, PT, PTT, DDIMR, EDCTNI, NTPROBNP, CHEM8, LIPASE, CMETADD #### Unless otherwise noted, all testing performed by [place] [address] CLIA: [id number] Front Desk Host: Maurice Coello M.D. Cardiac Troponin-Ion 018 Troponin I.cardiac mass conc ng/mL Normal < 45 [facility] Comment on above: Result Comment: Elev ation [...] Unless otherwise noted, all testing performed by [place] [address] CLIA: [id number] Front Desk Host: Maurice Coello M.D. D-Dimeron 01-29-2018 D-Dimer 1.88 mcg/ml (FEU) High < .5 [facility] Comment on above: Result Comment: This test is intended for use in conjunction with a clinical pretest probability (PTP) assessment model to exclude pulmonary embolism (PE) and deep vein thrombosis (DVT) in outpatients suspected of PE or DVT. Performed By: #### C BCWOD, PT, PTT, DDIMR, EDCTNI, NTPROBNP, CHEM8, LIPASE, CMETADD #### Unless otherwise noted, all testing performed by [place] [address] CLIA: [id number] Front Desk Host: Maurice Coello M.D. Lactic Acidon 01-29-2018 Lactate molar conc 1.3 mmol/L Normal 0.6-2.0 [facility] Comment on above: Performed By: #### C BCWOD, PT, PTT, DDIMR, EDCTNI, NTPROBNP, CHEM8, LIPASE, CMETADD #### Unless otherwise noted, all testing performed by [place] [address] CLIA: [id number] Front Desk Host: Maurice Coello M.D. Lipaseon 01-29-2018 Lipase enzyme act/vol 250 U/L Normal 73-[address] [facility] Comment on above: Performed By: #### C BCWOD, PT, PTT, DDIMR, EDCTNI, NTPROBNP, CHEM8, LIPASE, CMETADD #### Unless otherwise noted, all testing performed by [place] [address] CLIA: [id number] Front Desk Host: Maurice Coello M.D. NT-Pro BNP, Serumon 01-30-20 18 Natriuretic peptide B mass conc (Bld) 97 pg/mL Normal 0-125 [facility] Comment on above: Performed By: #### C BCWOD, PT, PTT, DDIMR, EDCTNI, NTPROBNP, CHEM8, LIPASE, CMETADD #### Unless otherwise noted, all testing performed by [place] [address] CLIA: [id number] Front Desk Host: Maurice Coello M.D. Partial Thromboplastin Timeo n 01-29-2018 aPTT Coag time (Bld) 31 s Normal 23.0-34.0 [facility] Comment on above: Result Comment: Uday silva therapeutic range for PTT is 68-104 sec. Performed By: #### C BCWOD, PT, PTT, DDIMR, EDCTNI, NTPROBNP, CHEM8, LIPASE, CMETADD #### Unless otherwise noted, all testing performed by [place] [address] CLIA: [id number] Front Desk Host: Maurice Coello M.D. Protimeon 01-29-2018 INR Coag RelTime (PPP) 0.93 {INR} Normal [facility] Comment on above: Result Comment: The [place] [employer] recommended therapeutic range for Warfarin (Coumadin) therapy goals: PROPHYLAXIS/TREATMENT of: INR Venous Thrombosis, Pulmonary Embolism 2.0-3.0 Prevention of VTE (Orthopedic Surgery) 2.0-3.0 Atrial Fibrillation 2.0-3.0 Myocardial Infarction 2.0-3.0 Mechanical Prosthetic Heart Valves (Aortic position) 2.0-3.0 Mechanical Prosthetic Heart Valves (Mitral Position) 2.5-3.5 [place] [employer] evidence-based clinical practice guidelines. CHEST. 2012 (9th ed) Performed By: #### C BCWOD, PT, PTT, DDIMR, EDCTNI, NTPROBNP, CHEM8, LIPASE, CMETADD #### Unless otherwise noted, all testing performed by [place] [address] CLIA: [id number] Front Desk Host: Maurice Coello M.D. Prothrombin time (PT) Coag time (PPP) 12.1 s Normal 11.8-14.3 [facility] Comment on above: Performed By: #### C BCWOD, PT, PTT, DDIMR, EDCTNI, NTPROBNP, CHEM8, LIPASE, CMETADD #### Unless otherwise noted, all testing performed by [facility] Dina Parikh [place] [id number] CLIA: [id number] Front Desk Host: Maurice Coello M.D. TSHon 01-12-2018 Interpretation and review of laboratory results Abnormal Invalid Interpretation Code [facility] Thyroid stimulating hormone (TSH) 24.40 uIU/mL High 0.320 - 5.000 [facility] Thyroxine (T4) free 1.0 ng/dL Invalid Interpretation Code 0.76 - 1.79 ng/dL [facility] CBC with DIFFERENTIALon 10-07 Basophils Auto #/vol (Bld) 0.04 10*3/uL Normal <=0.70 [facility] Comment on above: Performed By: #### 5 7021-8 ####[place] [address] Director - Gail Allison [id number] Basophils/100 WBC Auto (Bld) 0.3 % Normal <=2.0 [facility] Comment on above: Performed By: #### 5 7021-8 ####[place] [address] [address] Director - Gail CaguasJADIEL [id number] Eosinophils 0.04 10*3/uL Normal <=0.70 [facility] Comment on above: Performed By: #### 5 7021-8 ####[place] [address] Director - Gail Allison [id number] Eosinophils/100 leukocytes 0.3 % Normal <=10.0 [facility] Comment on above: Performed By: #### 5 7021-8 ####[place] [address] [facility].[address] Director - Gail Allison [id number] Erythrocyte distribution width Auto Entitic volume (RBC) 46.7 fL High 36.4-46.3 [facility] Comment on above: Performed By: #### 5 7021-8 ####[facility] Director - Gailpaulo MadrigalrellCLIA [id number] Erythrocytes (RBC) 4.90 10*6/uL Normal 4.00-6.30 [facility] Comment on above: Performed By: #### 5 7021-8 ####[facility] Director - Gail RohanrellCLIA [id number] Hematocrit (HCT) 38.1 % Normal 37.0-47.0 [facility] Comment on above: Performed By: #### 5 7021-8 ####[facility] Director - Gailpaulo Allison [id number] Hemoglobin mass conc (Bld) 12.2 g/dL Normal 12.0-16.0 [facility] Comment on above: Performed By: #### 5 7021-8 ####[facility] Director - Gail FarrellCLIA [id number] Immature granulocytes #/vol (Bld) 0.03 10*3/uL Normal <=0.10 [facility] Comment on above: Performed By: #### 5 7021-8 ####[facility] Director - Gail FarrellCLIA [id number] Immature granulocytes/100 WBC (Bld) 0.30 % Normal <=1.50 [facility] Comment on above: Performed By: #### 5 7021-8 ####[facility] Director - Gail FarrellCLIA [id number] Lymphocytes 1.42 10*3/uL Normal 1.20-3.40 [facility] Comment on above: Performed By: #### 5 7021-8 ####[facility] Director - Gail FarrellCLIA [id number] Lymphocytes/100 leukocytes 11.9 % Low 20.0-40.0 [facility] Comment on above: Performed By: #### 5 7021-8 ####[facility] Director - Gail Allison [id number] MCH 24.9 pg Low 27.0-31.0 [facility] Comment on above: Performed By: #### 5 7021-8 ####[facility] Director - Gail Allison [id number] MCHC mass conc (RBC) 32.0 g/dL Normal 32.0-36.0 [facility] Comment on above: Performed By: #### 5 7021-8 ####[facility] Director - Gail Allison [id number] MCV 77.8 fL Low 80.0-100.0 [facility] Comment on above: Performed By: #### 5 7021-8 ####[facility] Director - Gail Allison [id number] Monocytes 0.53 10*3/uL Normal 0.10-0.60 [facility] Comment on above: Performed By: #### 5 7021-8 ####[facility] Director - Gail Allison [id number] Monocytes/100 leukocytes 4.5 % Normal <=8.0 [facility] Comment on above: Performed By: #### 5 7021-8 ####[facility] Director - Gail Allison [id number] Neutrophils 9.84 10*3/uL High 1.40-6.50 [facility] Comment on above: Performed By: #### 5 7021-8 ####[facility] Director - Gail Allison [id number] Neutrophils/100 WBC Auto (Bld) 82.7 % High 50.0-70.0 [facility] Comment on above: Performed By: #### 5 7021-8 ####[facility] Director - Gail Allison [id number] Nucleated erythrocytes 0.00 10*3/uL Normal <=0.10 [facility] Comment on above: Performed By: #### 5 7021-8 ####[facility] Director - Gail Allison [id number] Platelet mean volume (PMV) 10.2 fL Normal 9.0-13.0 [facility] Comment on above: Performed By: #### 5 7021-8 ####[facility] Director - Gail Allison [id number] Platelets 269 10*3/uL Normal 130-400 [facility] Comment on above: Performed By: #### 5 7021-8 ####[facility] Director - Gail Allison [id number] WBC (Leukocytes) 11.90 10*3/uL High 4.80-10.80 [facility] Comment on above: Performed By: #### 5 7021-8 ####[facility] Director - Gail Allison [id number] [facility] Creatine kinase (CK) 617 U/L High 21-215 [facility] Comment on above: Performed By: #### 2 157-6, 91842-6, 3040-3 ####[facility] Director - Gail Allison [id number] COMPREHENSIVE METABOLIC PANE Jett 11-02-2017 Alanine aminotransferase (ALT) 31 U/L Normal 14-59 [facility] Comment on above: Performed By: #### 2 157-6, 75933-9, 0-3 ####[facility], [place] [address]Lfrocfm Director - Gail Allison [id number] Albumin 3.7 g/dL Normal 3.4-5.0 [facility] Comment on above: Performed By: #### 2 157-6, 42427-6, 0-3 ####[facility] Director - Gail Allison [id number] Alkaline phosphatase (ALP) 109 U/L Normal 50-136 [facility] Comment on above: Performed By: #### 2 157-6, 67922-4, 0-3 ####[facility] Director - Gail Allison [id number] Anion gap 7.0 mmol/L Normal <=15.0 [facility] Comment on above: Performed By: #### 2 157-6, 70251-0, 0-3 ####[facility] Director - Gail Allison [id number] Aspartate aminotransferase (AST) 34 U/L Normal 15-37 [facility] Comment on above: Performed By: #### 2 157-6, 46018-3, 0-3 ####[facility] Director - Gail Allison [id number] Bilirubin (total) 0.3 mg/dL Normal 0.2-1.0 [facility] Comment on above: Performed By: #### 2 157-6, 72408-0, 0-3 ####[facility], [place] [address]Idkfufh Director - Gail Allison [id number] Calcium 9.1 mg/dL Normal 8.5-10.1 [facility] Comment on above: Performed By: #### 2 157-6, 65884-6, 3040-3 ####[facility] Director - Gail Allison [id number] Chloride 102 mmol/L Normal 98-107 [facility] Comment on above: Performed By: #### 2 157-6, 67910-5, 3040-3 ####[facility] Director - Gail ThompsonBAMBI [id number] CO2 27 mmol/L Normal 21-32 [facility] Comment on above: Performed By: #### 2 157-6, 26102-6, 3040-3 ####[facility] [facility]Chip[facility] [id number] Creatinine 1.34 mg/dL High 0.51-0.95 [facility] Comment on above: Performed By: #### 2 157-6, 91137-9, 3040-3 ####[facility] Gail [facility] [id number] eGFR (MDRD) 40 mL/min/{1.73_m2} Low >=59 [facility] Comment on above: Performed By: #### 2 157-6, 01958-6, 3040-3 ####[facility] JayW[facility] [id number] eGFR (non-black) GLOMERULAR FILTRATIO N RATE INTERPRETATION~The [...] months, with or without kidney damage.~ Normal [facility] Comment on above: Performed By: #### 2 157-6, 96514-8, 3040-3 ####[facility] Director - [place] JayRAYMOND [place] [id number] Glucose mass conc 115 mg/dL High 74-106 [facility] Comment on above: Performed By: #### 2 157-6, 15553-9, 0-3 ####[facility] [address] Director - Gail KebedeAL [id number] Potassium molar conc 4.3 mmol/L Normal 3.5-5.1 [facility] Comment on above: Performed By: #### 2 157-6, 05582-3, 0-3 ####[facility] Director - Gail Allison [id number] Protein 7.7 g/dL Normal 6.4-8.2 [facility] Comment on above: Performed By: #### 2 157-6, 19901-4, 0-3 ####[facility] Director - Gail Allison [id number] Sodium 136 mmol/L Normal 136-145 [facility] Comment on above: Performed By: #### 2 157-6, 58289-1, 0-3 ####[facility] Director - Gail YandyAL [id number] Urea nitrogen 17 mg/dL Normal 7-17 [facility] Comment on above: Performed By: #### 2 157-6, 58188-3, 0-3 ####[facility], [place] [address]Rkhrcwl Director - Gail Allison [id number] LACTATEon 11-02-2017 Lactate 0.6 mmol/L Normal 0.4-2.0 [facility] Comment on above: Performed By: #### 2 524-7 ####[facility], [place] [address]Rmqdmow Director - Gail Allison [id number] LIPASEon 11-02-2017 Lipase 183 U/L Normal 73-393 [facility] Comment on above: Performed By: #### 2 157-6, 85082-9, 3040-3 ####[place] [address], [place] [address]Vdvxdgy Director - Gail Allison [id number] PT with INRon 11-02-2017 INR Coag RelTime (Bld) INR REFERENCE RAN GE INTERPRETATION Patients on Coumadin 2.0 - 3.0 Patients with mechanical heart valves 2.5 - 3.5 Normal [facility] Comment on above: Performed By: #### 5 902-2, 92706-6 ####[facility] Director - Gail Allison [id number] INR Coag RelTime (PPP) 1.0 {INR} Normal 0.8-1.1 [facility] Comment on above: Performed By: #### 5 902-2, 58619-6 ####[facility], [place] [address]Xajtwzo Director - Gail Allison [id number] Prothrombin time (PT) Coag time (PPP) 10.6 Secs Normal 9.3-11.5 [facility] Comment on above: Performed By: #### 5 902-2, 56503-7 ####[facility], [place] [address]Kdnblro Director - Gail Allison [id number] PTTon 11-02-2017 aPTT 27.6 Sec Normal 23.5-31.3 [facility] Comment on above: Performed By: #### 5 902-2, 95736-1 ####[facility] [address]Medical Director - Gail Allison [id number] BUN and Creatinineon 017 Creatinine 1.53 mg/dL High 0.4 - 1.1 mg/dL [facility] eGFR (black) 42 mL/min/{1.73_m2} Low >60 [facility] eGFR (non-black) 35 mL/min/{1.73_m2} Low >60 [facility] Interpretation and review of laboratory results Abnormal Invalid Interpretation Code [facility] Urea nitrogen 15 mg/dL Invalid Interpretation Code 8 - 25 mg/dL [facility] Calcium Levelon 07-05-2017 Calcium 9.0 mg/dL Invalid Interpretation Code 8.4 - 10.2 mg/dL [facility] Electrolyte Panelon 07-05-20 17 Chloride 104 mmol/L Invalid Interpretation Code 98 - 108 mmol/L [facility] CO2 23 mmol/L Invalid Interpretation Code 21 - 32 mmol/L [facility] Potassium 4.7 mmol/L Invalid Interpretation Code 3.5 - 5.1 mmol/L [facility] Sodium 136 mmol/L Invalid Interpretation Code 135 - 145 mmol/L [facility] Hemoglobin and Hematocriton 07-05-2017 Hematocrit (HCT) 37.0 % Invalid Interpretation Code 34.4 - 44.8 % [facility] Hemoglobin (HGB) 12.1 g/dL Invalid Interpretation Code 11.6 - 15.4 g/dL [facility] Parathyroid Hormoneon 2016 Parathyroid Hormone 90.3 pg/mL High 14.1 - 7 2 pg/mL [facility] Protein Panel, Urineon 07-05 Creatinine, Urine Random 64.80 mg/dL Invalid Interpretation Code [facility] Interpretation and review of laboratory results Abnormal Invalid Interpretation Code [facility] Protein, Urine Random 15.5 mg/dL Invalid Interpretation Code [facility] Protein/Creatinine Ratio, Urine 0.24 1 High 0.0 - 0.2 [facility] TSHon 07-05-2017 Thyroid stimulating hormone (TSH) 0.90 uIU/mL Invalid Interpretation Code 0.320 - 5.000 [facility] Vitamin D, Total, 25-OHon Vitamin D, 25-Hydroxy, Total 26.6 ng/mL Invalid Interpretation Code [facility] Vital Signs Date Time Vital Sign Value Performing Clinician Facility 07-23-2025 13:10-0400 Body height 162 cm Emmett Hyman MD Work Phone: [facility] 07-23-2025 13:10-0400 Body mass index (BMI) [Ratio] 37.95 kg/m2 Emmett Hyman MD Work Phone: [facility] 07-23-2025 13:10-0400 Body weight 99.6 kg Emmett Hyman MD Work Phone: [facility] 07-23-2025 13:10-0400 Diastolic blood pressure 78 mm[Hg] Emmett Hyman MD Work Phone: [facility] 07-23-2025 13:10-0400 Heart rate 61 /min Emmett Hyman MD Work Phone: [facility] 07-23-2025 13:10-0400 Systolic blood pressure 129 mm[Hg] Emmett Hyman MD Work Phone: [facility] 07-20-2025 10:07-0400 Diastolic blood pressure 55 mm[Hg] Dr. Jennifer Gordon MD Work Phone: [facility] 07-20-2025 10:07-0400 Systolic blood pressure 129 mm[Hg] Dr. Jennifer Gordon MD Work Phone: [facility] 07-20-2025 08:12-0400 Heart rate 71 /min Dr. Jennifer Gordon MD Work Phone: [facility] 07-20-2025 08:00-0400 Body temperature 98 [degF] Dr. Jennifer oGrdon MD Work Phone: [facility] 07-20-2025 08:00-0400 Inhaled oxygen flow rate 2 L/min Dr. Jennifer Gordon MD Work Phone: [facility] 07-20-2025 08:00-0400 Respiratory rate 16 /min Dr. Jennifer Gordon MD Work Phone: [facility] 07-20-2025 08:00-0400 SaO2% (BldA) [Mass fraction] 96 % Dr. Jennifer Gordon MD Work Phone: [facility] 07-20-2025 05:31-0400 Body mass index (BMI) [Ratio] 36.7 kg/m2 Dr. Jennifer Gordon MD Work Phone: [facility] 07-20-2025 05:31-0400 Body weight 100.[address] Jennifer Gordon MD Work Phone: [facility] 07-18-2025 10:59-0400 Body height 165.[address] Jennifer Gordon MD Work Phone: [facility] 07-17-2025 23:08-0400 Body temperature 98.1 [degF] Dr. Jennifer Gordon MD Work Phone: [facility] 07-17-2025 23:08-0400 Diastolic blood pressure 91 mm[Hg] Dr. Jennifer Gordon MD Work Phone: [facility] 07-17-2025 23:08-0400 Heart rate 69 /min Dr. Jennifer Gordon MD Work Phone: [facility] 07-17-2025 23:08-0400 Respiratory rate 18 /min Dr. Jennifer Gordon MD Work Phone: [facility] 07-17-2025 23:08-0400 SaO2% (BldA) [Mass fraction] 97 % Dr. Jennifer Gordon MD Work Phone: [facility] 07-17-2025 23:08-0400 Systolic blood pressure 182 mm[Hg] Dr. Jennifer Gordon MD Work Phone: [facility] 07-17-2025 21:00-0400 Inhaled oxygen flow rate 4 L/min Dr. Jennifer Gordon MD Work Phone: [facility] 07-17-2025 19:06-0400 Body height 165.[address] Jennifer Gordon MD Work Phone: [facility] 07-17-2025 19:06-0400 Body mass index (BMI) [Ratio] 37.3 kg/m2 Dr. Jennifer Gordon MD Work Phone: [facility] 07-17-2025 19:06-0400 Body weight 101.[address] Jennifer Gordon MD Work Phone: [facility] 06-26-2025 14:03-0400 Body height 165.[address] Jennifer Gordon MD Work Phone: [facility] 06-26-2025 14:03-0400 Body mass index (BMI) [Ratio] 35.9 kg/m2 Dr. Jennifer Gordon MD Work Phone: [facility] 06-26-2025 14:03-0400 Body temperature 98 [degF] Dr. Jennifer Gordon MD Work Phone: [facility] 06-26-2025 14:03-0400 Body weight 97.[address] Jennifer Gordon MD Work Phone: [facility] 06-26-2025 14:03-0400 Diastolic blood pressure 68 mm[Hg] Dr. Jennifer Gordon MD Work Phone: [facility] 06-26-2025 14:03-0400 Heart rate 103 /min Dr. Jennifer Gordon MD Work Phone: [facility] 06-26-2025 14:03-0400 Respiratory rate 18 /min Dr. Jennifer Gordon MD Work Phone: [facility] 06-26-2025 14:03-0400 SaO2% (BldA) [Mass fraction] 97 % Dr. Jennifer Gordon MD Work Phone: [facility] 06-26-2025 14:03-0400 Systolic blood pressure 142 mm[Hg] Dr. Jennifer Gordon MD Work Phone: [facility] 06-17-2025 08:29-0400 Body height 165.[address] Jennifer Gordon MD Work Phone: [facility] 06-17-2025 08:29-0400 Body mass index (BMI) [Ratio] 36.6 kg/m2 Dr. Jennifer Gordon MD Work Phone: [facility] 06-17-2025 08:29-0400 Body temperature 97.1 [degF] Dr. Jennifer Gordon MD Work Phone: [facility] 06-17-2025 08:29-0400 Body weight 99.[address] Jenniefr Gordon MD Work Phone: [facility] 06-17-2025 08:29-0400 Diastolic blood pressure 65 mm[Hg] Dr. Jennifer Gordon MD Work Phone: [facility] 06-17-2025 08:29-0400 Heart rate 75 /min Dr. Jennifer Gordon MD Work Phone: [facility] 06-17-2025 08:29-0400 Inhaled oxygen flow rate 4 L/min Dr. Jennifer Gordon MD Work Phone: [facility] 06-17-2025 08:29-0400 Respiratory rate 18 /min Dr. Jennifer Gordon MD Work Phone: [facility] 06-17-2025 08:29-0400 SaO2% (BldA) [Mass fraction] 97 % Dr. Jennifer Gordon MD Work Phone: [facility] 06-17-2025 08:29-0400 Systolic blood pressure 136 mm[Hg] Dr. Jennifer Gordon MD Work Phone: [facility] 04-30-2025 10:06-0400 Body height 165.1 cm Cb Boudreaux MD Work Phone: [facility] 04-30-2025 10:06-0400 Body mass index (BMI) [Ratio] 36.11 kg/m2 Cb Boudreaux MD Work Phone: [facility] 04-30-2025 10:06-0400 Body weight 98.43 kg Cb Boudreaux MD Work Phone: [facility] 04-30-2025 10:06-0400 Diastolic blood pressure 93 mm[Hg] Cb Boudreaux MD Work Phone: [facility] 04-30-2025 10:06-0400 Heart rate 64 /min Cb Boudreaux MD Work Phone: [facility] 04-30-2025 10:06-0400 SaO2% (BldA) [Mass fraction] 94 % Cb Boudreaux MD Work Phone: [facility] Comment on above: 2 M 04-30-2025 10:06-0400 Systolic blood pressure 145 mm[Hg] Cb Boudreaux MD Work Phone: [facility] 2025 13:25-0400 Body height 165.[address] Jennifer Gordon MD Work Phone: [facility] 2025 13:25-0400 Body mass index (BMI) [Ratio] 35.6 kg/m2 Dr. Jennifer Gordon MD Work Phone: [facility] 2025 13:25-0400 Body temperature 98.6 [degF] Dr. Jennifer Gordon MD Work Phone: [facility] 2025 13:25-0400 Body weight 97.[address] Jennifer Gordon MD Work Phone: [facility] 2025 13:25-0400 Diastolic blood pressure 84 mm[Hg] Dr. Jennifer Gordon MD Work Phone: [facility] 2025 13:25-0400 Heart rate 71 /min Dr. Jennifer Gordon MD Work Phone: [facility] 2025 13:25-0400 Inhaled oxygen flow rate 4 L/min Dr. Jennifer Gordon MD Work Phone: [facility] 2025 13:25-0400 Respiratory rate 20 /min Dr. Jennifer Gordon MD Work Phone: [facility] 2025 13:25-0400 SaO2% (BldA) [Mass fraction] 99 % Dr. Jennifer Gordon MD Work Phone: [facility] 2025 13:25-0400 Systolic blood pressure 160 mm[Hg] Dr. Jennifer Gordon MD Work Phone: [facility] 04-04-2025 14:41-0400 Heart rate 97 /min Dr. Jennifer Gordon MD Work Phone: [facility] 04-04-2025 14:41-0400 Inhaled oxygen flow rate 4 L/min Dr. Jennifer Gordon MD Work Phone: [facility] 04-04-2025 14:41-0400 SaO2% (BldA) [Mass fraction] 96 % Dr. Jennifer Gordon MD Work Phone: [facility] 04-04-2025 08:16-0400 Body mass index (BMI) [Ratio] 34.9 kg/m2 Dr. Jennifer Gordon MD Work Phone: [facility] 04-04-2025 08:16-0400 Body temperature 97.4 [degF] Dr. Jennifer Gordon MD Work Phone: [facility] 04-04-2025 08:16-0400 Body weight 95.[address] Jennifer Gordon MD Work Phone: [facility] 04-04-2025 08:16-0400 Diastolic blood pressure 82 mm[Hg] Dr. Jennifer Gordon MD Work Phone: [facility] 04-04-2025 08:16-0400 Heart rate 68 /min Dr. Jennifer Gordon MD Work Phone: [facility] 04-04-2025 08:16-0400 Inhaled oxygen flow rate 4 L/min Dr. Jennifer Gordon MD Work Phone: [facility] 04-04-2025 08:16-0400 Respiratory rate 20 /min Dr. Jennifer Gordon MD Work Phone: [facility] 04-04-2025 08:16-0400 SaO2% (BldA) [Mass fraction] 99 % Dr. Jennifer Gordon MD Work Phone: [facility] 04-04-2025 08:16-0400 Systolic blood pressure 165 mm[Hg] Dr. Jennifer Gordon MD Work Phone: [facility] 03-27-2025 11:34-0400 Body height 165.[address] Jennifer Gordon MD Work Phone: [facility] 03-27-2025 11:34-0400 Body mass index (BMI) [Ratio] 36.1 kg/m2 Dr. Jennifer Gordon MD Work Phone: [facility] 03-27-2025 11:34-0400 Body temperature 98.2 [degF] Dr. Jennifer Gordon MD Work Phone: [facility] 03-27-2025 11:34-0400 Body weight 98.[address] Jennifer Gordon MD Work Phone: [facility] 03-27-2025 11:34-0400 Diastolic blood pressure 79 mm[Hg] Dr. Jennifer Gordon MD Work Phone: [facility] 03-27-2025 11:34-0400 Heart rate 96 /min Dr. Jennifer Gordon MD Work Phone: [facility] 03-27-2025 11:34-0400 Inhaled oxygen flow rate 4 L/min Dr. Jennifer Gordon MD Work Phone: [facility] 03-27-2025 11:34-0400 Respiratory rate 17 /min Dr. Jennifer Gordon MD Work Phone: [facility] 03-27-2025 11:34-0400 SaO2% (BldA) [Mass fraction] 95 % Dr. Jennifer Gordon MD Work Phone: [facility] 03-27-2025 11:34-0400 Systolic blood pressure 169 mm[Hg] Dr. Jennifer Gordon MD Work Phone: [facility] 02-18-2025 11:31-0400 Body temperature 98.1 [degF] Jossie Alcazar MD Work Phone: [facility] 02-18-2025 11:31-0400 Diastolic blood pressure 73 mm[Hg] Jossie Alcazar MD Work Phone: [facility] 02-18-2025 11:31-0400 Heart rate 61 /min Jossie Alcazar MD Work Phone: [facility] 02-18-2025 11:31-0400 Respiratory rate 18 /min Jossie Alcazar MD Work Phone: [facility] 02-18-2025 11:31-0400 SaO2% (BldA) [Mass fraction] 97 % Jossie Alcazar MD Work Phone: [facility] 02-18-2025 11:31-0400 Systolic blood pressure 138 mm[Hg] Jossie Alcazar MD Work Phone: [facility] 02-13-2025 15:45-0400 Body height 165.1 cm Bahzat Inge MD Work Phone: [facility] 02-13-2025 15:45-0400 Body mass index (BMI) [Ratio] 35.94 kg/m2 Jossie Alcazar MD Work Phone: [facility] 02-13-2025 15:45-0400 Body weight 97.98 kg Jossie Alcazar MD Work Phone: [facility] 01-06-2025 10:18-0500 Body height 165.[address] Jennifer Gordon MD Work Phone: [facility] 01-06-2025 10:18-0500 Body mass index (BMI) [Ratio] 37.5 kg/m2 Dr. Jennifer Gordon MD Work Phone: [facility] 01-06-2025 10:18-0500 Body weight 102.[address] Jennifer Gordon MD Work Phone: [facility] 01-01-2025 16:41-0500 Body temperature 98 [degF] Dr. Jennifer Gordon MD Work Phone: [facility] 01-01-2025 16:41-0500 Diastolic blood pressure 79 mm[Hg] Dr. Jennifer Gordon MD Work Phone: [facility] 01-01-2025 16:41-0500 Heart rate 85 /min Dr. Jennifer Gordon MD Work Phone: [facility] 01-01-2025 16:41-0500 Respiratory rate 19 /min Dr. Jennifer Gordon MD Work Phone: [facility] 01-01-2025 16:41-0500 SaO2% (BldA) [Mass fraction] 94 % Dr. Jennifer Gordon MD Work Phone: [facility] 01-01-2025 16:41-0500 Systolic blood pressure 128 mm[Hg] Dr. Jennifer Gordon MD Work Phone: [facility] 01-01-2025 15:33-0500 Body mass index (BMI) [Ratio] 36.6 kg/m2 Dr. Jennifer Gordon MD Work Phone: [facility] 01-01-2025 15:33-0500 Body weight 99.[address] Jennifer Gordon MD Work Phone: [facility] 12-26-2024 11:24-0500 Body mass index (BMI) [Ratio] 38.1 kg/m2 Dr. Jennifer Gordon MD Work Phone: [facility] 12-26-2024 11:24-0500 Body temperature 98.2 [degF] Dr. Jennifer Gordon MD Work Phone: [facility] 12-26-2024 11:24-0500 Body weight 103.[address] Jennifer Gordon MD Work Phone: [facility] 12-26-2024 11:24-0500 Diastolic blood pressure 84 mm[Hg] Dr. Jennifer Gordon MD Work Phone: [facility] 12-26-2024 11:24-0500 Heart rate 82 /min Dr. Jennifer Gordon MD Work Phone: [facility] 12-26-2024 11:24-0500 Inhaled oxygen flow rate 4 L/min Dr. Jennifer Gordon MD Work Phone: [facility] 12-26-2024 11:24-0500 Respiratory rate 17 /min Dr. Jennifer Gordon MD Work Phone: [facility] 12-26-2024 11:24-0500 SaO2% (BldA) [Mass fraction] 95 % Dr. Jennifer Gordon MD Work Phone: [facility] 12-26-2024 11:24-0500 Systolic blood pressure 158 mm[Hg] Dr. Jennifer Gordon MD Work Phone: [facility] 10-16-2024 13:23-0500 Body mass index (BMI) [Ratio] 38.2 kg/m2 Dr. Jennifer Gordon MD Work Phone: [facility] 10-16-2024 13:23-0500 Body temperature 97.1 [degF] Dr. Jennifer Gordon MD Work Phone: [facility] 10-16-2024 13:23-0500 Body weight 104.[address] Jennifer Gordon MD Work Phone: [facility] 10-16-2024 13:23-0500 Diastolic blood pressure 78 mm[Hg] Dr. Jennifer Gordon MD Work Phone: [facility] 10-16-2024 13:23-0500 Heart rate 64 /min Dr. Jennifer Gordon MD Work Phone: [facility] 10-16-2024 13:23-0500 Inhaled oxygen flow rate 4 L/min Dr. Jennifer Gordon MD Work Phone: [facility] 10-16-2024 13:23-0500 Respiratory rate 20 /min Dr. Jennifer Gordon MD Work Phone: [facility] 10-16-2024 13:23-0500 SaO2% (BldA) [Mass fraction] 99 % Dr. Jennifer Gordon MD Work Phone: [facility] 10-16-2024 13:23-0500 Systolic blood pressure 122 mm[Hg] Dr. Jennifer Gordon MD Work Phone: [facility] 09-25-2024 08:12-0500 Body temperature 98.2 [degF] Jossie Alcazar MD Work Phone: [facility] 09-25-2024 08:12-0500 Diastolic blood pressure 80 mm[Hg] Jossie Alcazar MD Work Phone: [facility] 09-25-2024 08:12-0500 Heart rate 74 /min Jossie Alcazar MD Work Phone: [facility] 09-25-2024 08:12-0500 Respiratory rate 17 /min Jossie Alcazar MD Work Phone: [facility] 09-25-2024 08:12-0500 SaO2% (BldA) [Mass fraction] 96 % Jossie Alcazar MD Work Phone: [facility] 09-25-2024 08:12-0500 Systolic blood pressure 142 mm[Hg] Jossie Alcazar MD Work Phone: [facility] 09-25-2024 06:31-0500 Body mass index (BMI) [Ratio] 37.79 kg/m2 Jossie Alcazar MD Work Phone: [facility] 09-25-2024 06:31-0500 Body weight 103 kg Jossie Alcazar MD Work Phone: [facility] 09-21-2024 23:21-0500 Body height 165.1 cm Jossie Alcazar MD Work Phone: [facility] 09-18-2024 13:00-0500 Body height 165.1 cm Cb Boudreaux MD Work Phone: [facility] 09-18-2024 13:00-0500 Body mass index (BMI) [Ratio] 39.44 kg/m2 Cb Boudreaux MD Work Phone: [facility] 09-18-2024 13:00-0500 Body weight 107.5 kg Cb Boudreaux MD Work Phone: [facility] 09-18-2024 13:00-0500 Diastolic blood pressure 80 mm[Hg] Cb Boudreaux MD Work Phone: [facility] 09-18-2024 13:00-0500 Heart rate 70 /min Cb Boudreaux MD Work Phone: [facility] 09-18-2024 13:00-0500 SaO2% (BldA) [Mass fraction] 98 % Cb Boudreaux MD Work Phone: [facility] Comment on above: 4 LPM 09-18-2024 13:00-0500 Systolic blood pressure 135 mm[Hg] Cb Boudreaux MD Work Phone: [facility] 09-03-2024 16:01-0400 Diastolic blood pressure 78 mm[Hg] Ramírez Cunningham MD Work Phone: [facility] 09-03-2024 16:01-0400 Heart rate 84 /min Ramírez Cunningham MD Work Phone: [facility] 09-03-2024 16:01-0400 SaO2% (BldA) [Mass fraction] 95 % Ramírez Cunningham MD Work Phone: [facility] 09-03-2024 16:01-0400 Systolic blood pressure 145 mm[Hg] Ramírez Cunningham MD Work Phone: [facility] 09-03-2024 11:16-0400 Body temperature 97.81 [degF] Ramírez Cunningham MD Work Phone: [facility] 09-03-2024 11:00-0400 Respiratory rate 16 /min Ramírez Cunningham MD Work Phone: [facility] 09-02-2024 18:27-0400 Body height 165.1 cm Ramírez Cunningham MD Work Phone: [facility] 09-02-2024 18:27-0400 Body mass index (BMI) [Ratio] 39.44 kg/m2 Ramírez Cunningham MD Work Phone: [facility] 09-02-2024 18:27-0400 Body weight 107.5 kg Ramírez Cunningham MD Work Phone: [facility] 09-02-2024 14:44-0400 SaO2% (BldA) [Mass fraction] 97.3 % Ramírez Cunningham MD Work Phone: [facility] 02-29-2024 14:06-0400 Body height 165.[address] Jennifer Gordon Work Phone: [facility] 02-29-2024 14:06-0400 Body mass index (BMI) [Ratio] 41.4 kg/m2 Dr. Jennifer Gordon Work Phone: [facility] 02-29-2024 14:06-0400 Body temperature 97.7 [degF] Dr. Jennifer Gordon Work Phone: [facility] 02-29-2024 14:06-0400 Body weight [address] Jennifer Gordon Work Phone: [facility] 02-29-2024 14:06-0400 Diastolic blood pressure 78 mm[Hg] Dr. Jennifer Gordon Work Phone: [facility] 02-29-2024 14:06-0400 Heart rate 102 /min Dr. Jennifer Gordon Work Phone: [facility] 02-29-2024 14:06-0400 Respiratory rate 20 /min Dr. Jennifer Gordon Work Phone: [facility] 02-29-2024 14:06-0400 SaO2% (BldA) [Mass fraction] 96 % Dr. Jennifer Gordon Work Phone: [facility] 02-29-2024 14:06-0400 Systolic blood pressure 128 mm[Hg] Dr. Jennifer Gordon Work Phone: [facility] 01-15-2024 07:18-0400 Body mass index (BMI) [Ratio] 40.7 kg/m2 Dr. Jennifer Gordon Work Phone: [facility] 01-15-2024 07:18-0400 Body temperature 96.9 [degF] Dr. Jennifer Gordon Work Phone: [facility] 01-15-2024 07:18-0400 Body weight 111.[address] Jennifer Gordon Work Phone: [facility] 01-15-2024 07:18-0400 Diastolic blood pressure 80 mm[Hg] Dr. Jennifer Gordon Work Phone: [facility] 01-15-2024 07:18-0400 Heart rate 84 /min Dr. Jennifer Gordon Work Phone: [facility] 01-15-2024 07:18-0400 Inhaled oxygen flow rate 4 L/min Dr. Jennifer Gordon Work Phone: [facility] 01-15-2024 07:18-0400 Respiratory rate 20 /min Dr. Jennifer Gordon Work Phone: [facility] 01-15-2024 07:18-0400 SaO2% (BldA) [Mass fraction] 97 % Dr. Jennifer Gordon Work Phone: [facility] 01-15-2024 07:18-0400 Systolic blood pressure 141 mm[Hg] Dr. Jennifer Gordon Work Phone: [facility] 12-11-2023 09:23-0500 Body mass index (BMI) [Ratio] 42.5 kg/m2 Dr. Jennifer Gordon Work Phone: [facility] 12-11-2023 09:23-0500 Body temperature 98 [degF] Dr. Jennifer Gordon Work Phone: [facility] 12-11-2023 09:23-0500 Body weight [address] Jennifer Gordon Work Phone: [facility] 12-11-2023 09:23-0500 Diastolic blood pressure 66 mm[Hg] Dr. Jennifer Gordon Work Phone: [facility] 12-11-2023 09:23-0500 Heart rate 75 /min Dr. Jennifer Gordon Work Phone: [facility] 12-11-2023 09:23-0500 Respiratory rate 18 /min Dr. Jennifer Gordon Work Phone: [facility] 12-11-2023 09:23-0500 SaO2% (BldA) [Mass fraction] 93 % Dr. Jennifer Gordon Work Phone: [facility] 12-11-2023 09:23-0500 Systolic blood pressure 103 mm[Hg] Dr. Jennifer Gordon Work Phone: [facility] 12-11-2023 09:21-0500 Body height 165.[address] Jennifer Gordon Work Phone: [facility] 12-11-2023 07:33-0500 Body mass index (BMI) [Ratio] 42.4 kg/m2 Dr. Jennifer Gordon Work Phone: [facility] 12-11-2023 07:33-0500 Body temperature 98.1 [degF] Dr. Jennifer Gordon Work Phone: [facility] 12-11-2023 07:33-0500 Body weight 115.[address] Jennifer Gordon Work Phone: [facility] 12-11-2023 07:33-0500 Diastolic blood pressure 82 mm[Hg] Dr. Jennifer Gordon Work Phone: [facility] 12-11-2023 07:33-0500 Heart rate 75 /min Dr. Jennifer Gordon Work Phone: [facility] 12-11-2023 07:33-0500 Inhaled oxygen flow rate 4 L/min Dr. Jennifer Gordon Work Phone: [facility] 12-11-2023 07:33-0500 Respiratory rate 18 /min Dr. Jennifer Gordon Work Phone: [facility] 12-11-2023 07:33-0500 SaO2% (BldA) [Mass fraction] 95 % Dr. Jennifer Gordon Work Phone: [facility] 12-11-2023 07:33-0500 Systolic blood pressure 128 mm[Hg] Dr. Jennifer Gordon Work Phone: [facility] 11-28-2023 14:55-0500 Body height 165.[address] Jennifer Gordon Work Phone: [facility] 11-28-2023 14:55-0500 Body mass index (BMI) [Ratio] 40.2 kg/m2 Dr. Jennifer Gordon Work Phone: [facility] 11-28-2023 14:55-0500 Body temperature 98 [degF] Dr. Jennifer Gordon Work Phone: [facility] 11-28-2023 14:55-0500 Body weight 109.[address] Jennifer Gordon Work Phone: [facility] 11-28-2023 14:55-0500 Diastolic blood pressure 66 mm[Hg] Dr. Jennifer Gordon Work Phone: [facility] 11-28-2023 14:55-0500 Heart rate 96 /min Dr. Jennifer Gordon Work Phone: [facility] 11-28-2023 14:55-0500 Respiratory rate 17 /min Dr. Jennifer Gordon Work Phone: [facility] 11-28-2023 14:55-0500 SaO2% (BldA) [Mass fraction] 93 % Dr. Jennifer Gordon Work Phone: [facility] 11-28-2023 14:55-0500 Systolic blood pressure 110 mm[Hg] Dr. Jennifer Gordon Work Phone: [facility] 10-17-2023 13:57-0500 Body mass index (BMI) [Ratio] 39.6 kg/m2 Dr. Jennifer Gordon Work Phone: [facility] 10-17-2023 13:57-0500 Body weight 107.[address] Jennifer Gordon Work Phone: [facility] 10-17-2023 13:57-0500 Diastolic blood pressure 81 mm[Hg] Dr. Jennifer Gordon Work Phone: [facility] 10-17-2023 13:57-0500 Heart rate 74 /min Dr. Jennifer Gordon Work Phone: [facility] 10-17-2023 13:57-0500 Respiratory rate 18 /min Dr. Jennifer Gordon Work Phone: [facility] 10-17-2023 13:57-0500 Systolic blood pressure 122 mm[Hg] Dr. Jennifer Gordon Work Phone: [facility] 06-05-2023 10:16-0400 Body height 165.[address] Rusty Dozier Work Phone: [facility] 06-05-2023 10:16-0400 Body mass index (BMI) [Ratio] 37.3 kg/m2 Dr. Rusty Dozier Work Phone: [facility] 06-05-2023 10:16-0400 Body temperature 95 [degF] Dr. Rusty Dozier Work Phone: [facility] 06-05-2023 10:16-0400 Body weight 101.[address] Rusty Dozier Work Phone: [facility] 06-05-2023 10:16-0400 Diastolic blood pressure 68 mm[Hg] Dr. Rusty Dozier Work Phone: [facility] 06-05-2023 10:16-0400 Heart rate 88 /min Dr. Rusty Dozier Work Phone: [facility] 06-05-2023 10:16-0400 Respiratory rate 18 /min Dr. Rusty Dozier Work Phone: [facility] 06-05-2023 10:16-0400 SaO2% (BldA) [Mass fraction] 95 % Dr. Rusty Dozier Work Phone: 8(536)529-851651 [place] [address] 06-05-2023 10:16-0400 Systolic blood pressure 124 mm[Hg] Dr. Rusty Dozier Work Phone: 3(988)378-286891 [place] [address] 04-18-2023 14:37-0400 Body height 165.[address] Rusty Dozier Work Phone: 5(843)667-606991 [place] [address] 04-18-2023 14:37-0400 Body mass index (BMI) [Ratio] 35.7 kg/m2 Dr. Rusty Dozier Work Phone: 3(232)884-306391 [place] [address] 04-18-2023 14:37-0400 Body weight 97.[address] Rusty Dozier Work Phone: 4(127)707-997091 [place] [address] 04-18-2023 14:37-0400 Diastolic blood pressure 84 mm[Hg] Dr. Rusty Dozier Work Phone: 1(763)854-888691 [place] [address] 04-18-2023 14:37-0400 Heart rate 99 /min Dr. Rusty Dozier Work Phone: 1(645)472-943791 [place] [address] 04-18-2023 14:37-0400 Respiratory rate 18 /min Dr. Rusty Dozier Work Phone: 7(475)162-956191 [place] [address] 04-18-2023 14:37-0400 Systolic blood pressure 122 mm[Hg] Dr. Rusty Dozier Work Phone: 9(947)353-589491 [place] [address] 02-24-2023 09:35-0400 Body mass index (BMI) [Ratio] 35.9 kg/m2 Dr. Rusty Dozier Work Phone: 2(946)637-363891 [place] [address] 02-24-2023 09:35-0400 Body temperature 97.9 [degF] Dr. Rusty Dozier Work Phone: 4(453)560-761991 [place] [address] 02-24-2023 09:35-0400 Body weight 97.[address] Rusty Dozier Work Phone: 6(228)844-212591 [place] [address] 02-24-2023 09:35-0400 Diastolic blood pressure 81 mm[Hg] Dr. Rusty Dozier Work Phone: [facility] 02-24-2023 09:35-0400 Heart rate 104 /min Dr. Rusty Dozier Work Phone: [facility] 02-24-2023 09:35-0400 Inhaled oxygen flow rate 4 L/min Dr. Rusty Doizer Work Phone: [facility] 02-24-2023 09:35-0400 Respiratory rate 22 /min Dr. Rusty Dozier Work Phone: [facility] 02-24-2023 09:35-0400 SaO2% (BldA) [Mass fraction] 97 % Dr. Rusty Dozier Work Phone: [facility] 02-24-2023 09:35-0400 Systolic blood pressure 118 mm[Hg] Dr. Rusty Dozier Work Phone: [facility] 02-07-2023 14:38-0400 Body height 165.1 cm [facility] Jonathan Hellinger [facility] Work Phone: [facility] 02-07-2023 14:38-0400 Body mass index (BMI) [Ratio] 35.2 kg/m2 [facility] Jonathan Hellinger [facility] Work Phone: [facility] 02-07-2023 14:38-0400 Body temperature 98.2 [degF] [facility] Jonathan Hellinger [facility] Work Phone: [facility] 02-07-2023 14:38-0400 Body weight 95.87 kg [facility] Jonathan Hellinger [facility] Work Phone: [facility] 02-07-2023 14:38-0400 Diastolic blood pressure 70 mm[Hg] [facility] Jonathan Hellinger [facility] Work Phone: [facility] 02-07-2023 14:38-0400 Heart rate 127 /min [facility] Jonathan Hellinger [facility] Work Phone: [facility] 02-07-2023 14:38-0400 Inhaled oxygen flow rate 4 L/min [facility] Jonathan Hellinger [facility] Work Phone: [facility] 02-07-2023 14:38-0400 Respiratory rate 17 /min [facility] Jonathan Hellinger [facility] Work Phone: [facility] 02-07-2023 14:38-0400 SaO2% (BldA) [Mass fraction] 95 % [facility] Jonathan Hellinger [facility] Work Phone: [facility] 02-07-2023 14:38-0400 Systolic blood pressure 126 mm[Hg] [facility] Jonathan Hellinger [facility] Work Phone: [facility] 12-01-2022 11:21-0500 Diastolic blood pressure 60 mm[Hg] [facility] Jonathan Hellinger [facility] Work Phone: [facility] 12-01-2022 11:21-0500 Heart rate 82 /min [facility] Jonathan Hellinger [facility] Work Phone: [facility] 12-01-2022 11:21-0500 Systolic blood pressure 108 mm[Hg] [facility] Jonathan Hellinger [facility] Work Phone: [facility] 12-01-2022 08:06-0500 Body height 165.1 cm [facility] Jonathan Hellinger [facility] Work Phone: [facility] 12-01-2022 08:06-0500 Body mass index (BMI) [Ratio] 34.9 kg/m2 [facility] Jonathan Hellinger [facility] Work Phone: [facility] 12-01-2022 08:06-0500 Body temperature 97.2 [degF] [facility] Jonathan Hellinger [facility] Work Phone: [facility] 12-01-2022 08:06-0500 Body weight 95.25 kg [facility] Jonathan Hellinger [facility] Work Phone: [facility] 12-01-2022 08:06-0500 Inhaled oxygen flow rate 4 L/min [facility] Jonathan Rutherford [facility] Work Phone: [facility] 12-01-2022 08:06-0500 Respiratory rate 16 /min [facility] Jonathan Rutherford [facility] Work Phone: [facility] 12-01-2022 08:06-0500 SaO2% (BldA) [Mass fraction] 99 % [facility] Jonathan Rutherford [facility] Work Phone: [facility] 10-06-2022 15:00-0500 Body height 165.[address] Rusty Dozier Work Phone: [facility] Work Phone: 10-06-2022 15:00-0500 Body mass index (BMI) [Ratio] 36.8 kg/m2 Dr. Rusty Dozier Work Phone: [facility] 10-06-2022 15:00-0500 Body temperature 97.8 [degF] Dr. Rusty Dozier Work Phone: [facility] 10-06-2022 15:00-0500 Body weight 100.[address] Rusty Dozier Work Phone: [facility] 10-06-2022 15:00-0500 Diastolic blood pressure 68 mm[Hg] Dr. Rusty Dozier Work Phone: [facility] 10-06-2022 15:00-0500 Heart rate 51 /min Dr. Rusty Dozier Work Phone: [facility] 10-06-2022 15:00-0500 Respiratory rate 16 /min Dr. Rusty Dozier Work Phone: [facility] 10-06-2022 15:00-0500 SaO2% (BldA) [Mass fraction] 96 % Dr. Rusty Dozier Work Phone: [facility] 10-06-2022 15:00-0500 Systolic blood pressure 138 mm[Hg] Dr. Rusty Dozier Work Phone: [facility] 07-19-2022 14:30-0400 Body height 162.6 cm Debrapatrick Adamson [employer] Work Phone: [facility] 07-19-2022 14:30-0400 Body mass index (BMI) [Ratio] 39.31 kg/m2 Debra Snow [employer] Work Phone: [facility] 07-19-2022 14:30-0400 Body weight 103.87 kg Debra Snow [employer] Work Phone: [facility] 07-19-2022 14:30-0400 Diastolic blood pressure 44 mm[Hg] Debra Snow [employer] Work Phone: [facility] 07-19-2022 14:30-0400 Heart rate 88 /min Debra Snow [employer] Work Phone: [facility] 07-19-2022 14:30-0400 SaO2% (BldA) [Mass fraction] 96 % Debra Snow [employer] Work Phone: [facility] Comment on above: [facility] 07-19-2022 14:30-0400 Systolic blood pressure 142 mm[Hg] Debra Snow [employer] Work Phone: [facility] 07-08-2022 11:26-0400 Body height 162.6 cm Estrada Garcia MD Work Phone: [facility] 07-08-2022 11:26-0400 Body mass index (BMI) [Ratio] 39.07 kg/m2 Estrada Garcia MD Work Phone: [facility] 07-08-2022 11:26-0400 Body temperature 98.91 [degF] Estrada Garcia MD Work Phone: [facility] 07-08-2022 11:26-0400 Body weight 103.24 kg Estrada Garcia MD Work Phone: [facility] 07-08-2022 11:26-0400 Diastolic blood pressure 81 mm[Hg] Estrada Garcia MD Work Phone: [facility] 07-08-2022 11:26-0400 Heart rate 73 /min Estrada Garcia MD Work Phone: [facility] 07-08-2022 11:26-0400 Respiratory rate 18 /min Estrada Garcia MD Work Phone: [facility] 07-08-2022 11:26-0400 SaO2% (BldA) [Mass fraction] 97 % Estrada Garcia MD Work Phone: [facility] 07-08-2022 11:26-0400 Systolic blood pressure 119 mm[Hg] Estrada Garcia MD Work Phone: [facility] 06-29-2022 08:54-0400 Respiratory rate 18 /min Jaiden Bagley MD Work Phone: [facility] 06-29-2022 07:47-0400 Body temperature 98.01 [degF] Jaiden Bagley MD Work Phone: [facility] 06-29-2022 07:47-0400 Diastolic blood pressure 95 mm[Hg] Jaiden Bagley MD Work Phone: [facility] 06-29-2022 07:47-0400 Heart rate 79 /min Jaiden Bagley MD Work Phone: [facility] 06-29-2022 07:47-0400 SaO2% (BldA) [Mass fraction] 95 % Jaiden Bagley MD Work Phone: [facility] 06-29-2022 07:47-0400 Systolic blood pressure 173 mm[Hg] Jaiden Bagley MD Work Phone: [facility] 06-21-2022 17:00-0400 Body height 162.6 cm Jaiden Bagley MD Work Phone: [facility] 06-21-2022 17:00-0400 Body mass index (BMI) [Ratio] 39.82 kg/m2 Jaiden Bagley MD Work Phone: [facility] 06-21-2022 17:00-0400 Body weight 105.23 kg Jaiden Bagley MD Work Phone: [facility] 04-04-2022 11:29-0400 Body temperature 97.9 [degF] Jada Vargas MD Work Phone: [facility] 04-04-2022 06:00-0400 Heart rate 87 /min Jada Vargas MD Work Phone: [facility] 04-04-2022 06:00-0400 Respiratory rate 19 /min Jada Vargas MD Work Phone: [facility] 04-04-2022 06:00-0400 SaO2% (BldA) [Mass fraction] 99 % Jada Vargas MD Work Phone: [facility] 04-04-2022 03:50-0400 Body mass index (BMI) [Ratio] 40.64 kg/m2 Jada Vargas MD Work Phone: [facility] 04-04-2022 03:50-0400 Body weight 107.4 kg Jada Vargas MD Work Phone: [facility] 04-03-2022 23:00-0400 Diastolic blood pressure 93 mm[Hg] Jada Vargas MD Work Phone: [facility] 04-03-2022 23:00-0400 Systolic blood pressure 186 mm[Hg] Jada Vargas MD Work Phone: [facility] 03-01-2022 09:47-0400 Body mass index (BMI) [Ratio] 43.36 kg/m2 Jada Vargas MD Work Phone: [facility] 03-01-2022 09:47-0400 Body weight 114.58 kg Jada Vargas MD Work Phone: [facility] 03-01-2022 09:47-0400 Diastolic blood pressure 74 mm[Hg] Jada Vargas MD Work Phone: [facility] 03-01-2022 09:47-0400 Heart rate 90 /min Jada Vargas MD Work Phone: [facility] 03-01-2022 09:47-0400 Systolic blood pressure 142 mm[Hg] Jada Vargas MD Work Phone: [facility] 12-30-2021 10:43-0500 SaO2% (BldA) [Mass fraction] 94 % Estrada Garcia MD Work Phone: [facility] Comment on above: on room air after rest 12-30-2021 10:35-0500 Body mass index (BMI) [Ratio] 41.76 kg/m2 Estrada Garcia MD Work Phone: [facility] 12-30-2021 10:35-0500 Body temperature 98.29 [degF] Estrada Garcia MD Work Phone: [facility] 12-30-2021 10:35-0500 Body weight 110.36 kg Estrada Garcia MD Work Phone: [facility] 12-30-2021 10:35-0500 Diastolic blood pressure 68 mm[Hg] Estrada Garcia MD Work Phone: [facility] 12-30-2021 10:35-0500 Heart rate 107 /min Estrada Garcia MD Work Phone: [facility] 12-30-2021 10:35-0500 Systolic blood pressure 109 mm[Hg] Estrada Garcia MD Work Phone: [facility] 08-04-2021 14:09-0400 Body height 162.6 cm Mo [employer]ist [employer] Work Phone: [facility] 08-04-2021 14:09-0400 Body mass index (BMI) [Ratio] 39.82 kg/m2 [employer] Work Phone: [facility] 08-04-2021 14:09-0400 Body weight 105.23 kg Mo [employer] Work Phone: [facility] 08-04-2021 14:09-0400 Diastolic blood pressure 82 mm[Hg] Mo [employer]ist [employer] Work Phone: [facility] 08-04-2021 14:09-0400 Heart rate 110 /min Mo [employer] Work Phone: [facility] 08-04-2021 14:09-0400 SaO2% (BldA) [Mass fraction] 93 % Mo [employer] Work Phone: [facility] 08-04-2021 14:09-0400 Systolic blood pressure 138 mm[Hg] Mo [employer] Work Phone: [facility] 04-14-2021 19:15-0400 Diastolic blood pressure 92 mm[Hg] Georgie Vázquez MD Work Phone: [facility] 04-14-2021 19:15-0400 Heart rate 78 /min Georgie Vázquez MD Work Phone: [facility] 04-14-2021 19:15-0400 Respiratory rate 16 /min Georgie Vázquez MD Work Phone: [facility] 04-14-2021 19:15-0400 SaO2% (BldA) [Mass fraction] 93 % Georgie Vázquez MD Work Phone: [facility] 04-14-2021 19:15-0400 Systolic blood pressure 160 mm[Hg] Georgie Vázquez MD Work Phone: [facility] 04-14-2021 15:19-0400 Body temperature 98.2 [degF] Georgie Vázquez MD Work Phone: [facility] 04-14-2021 15:10-0400 Body height 165.1 cm Georgie Vázquez MD Work Phone: [facility] 04-14-2021 15:10-0400 Body mass index (BMI) [Ratio] 39.94 kg/m2 Georgie Vázquez MD Work Phone: [facility] 04-14-2021 15:10-0400 Body weight 108.86 kg Georgie Vázquez MD Work Phone: [facility] 11-02-2020 13:24-0500 BMI (Body Mass Index) 36.61 kg/m2 [facility] 11-02-2020 13:24-0500 Body Temperature 98.91 [degF] [facility] 11-02-2020 13:24-0500 Body weight 99.79 kg [facility] 11-02-2020 13:24-0500 BP Diastolic 91 mm[Hg] [facility] 11-02-2020 13:24-0500 BP Systolic 175 mm[Hg] [facility] 11-02-2020 13:24-0500 Height 165.1 cm [facility] 11-02-2020 13:24-0500 Pulse (Heart Rate) 97 /min [facility] 11-02-2020 13:24-0500 Pulse Oximetry 97 % [facility] 11-02-2020 13:24-0500 Respiratory Rate 20 /min [facility] 09-15-2020 14:27-0500 BMI (Body Mass Index) 34.28 kg/m2 [facility] 09-15-2020 14:27-0500 Body weight 93.44 kg [facility] 09-15-2020 14:27-0500 BP Diastolic 82 mm[Hg] [facility] 09-15-2020 14:27-0500 BP Systolic 147 mm[Hg] [facility] 09-15-2020 14:27-0500 Height 165.1 cm [facility] 09-15-2020 14:27-0500 Pulse (Heart Rate) 120 /min [facility] 09-15-2020 14:27-0500 Respiratory Rate 18 /min [facility] 05-07-2019 15:42-0400 Body Temperature 98.2 [degF] [facility] 05-07-2019 15:42-0400 BP Diastolic 77 mm[Hg] [facility] 05-07-2019 15:42-0400 BP Systolic 127 mm[Hg] [facility] 05-07-2019 15:42-0400 Pulse (Heart Rate) 107 /min [facility] 05-07-2019 15:42-0400 Pulse Oximetry 96 % [facility] 05-07-2019 15:42-0400 Respiratory Rate 14 /min [facility] [place] [facility] 05-07-2019 15:15-0400 BMI (Body Mass Index) 34.28 kg/m2 Jose [facility] 05-07-2019 15:15-0400 Body weight 93.44 kg [facility] [place] [facility] 05-07-2019 15:15-0400 Height 165.1 cm [facility] [place] [facility] 04-10-2019 13:11-0400 BMI (Body Mass Index) 34.28 kg/m2 [facility]-10[facility] 13:11-0400 Height 165.1 cm [facility] 04-10-2019 13:11-0400 Weight 93.44 kg [facility] 04-05-2019 13:35-0400 BMI (Body Mass Index) 34.28 kg/m2 Whit[facility] 04-05-2019 13:35-0400 BP Diastolic 76 mm[Hg] [facility] 04-05-2019 13:35-0400 BP Systolic 145 mm[Hg] [facility] 04-05-2019 13:35-0400 Height 165.1 cm [facility] 04-05-2019 13:35-0400 Pulse (Heart Rate) 79 /min [facility] 04-05-2019 13:35-0400 Pulse Oximetry 93 % [facility] 04-05-2019 13:35-0400 Weight 93.44 kg [facility]-17-[facility] 16:56-0500 Body temperature 37.0 Celsius [facility] Comment on above: Performed By: #### CBCWOD, PT, PTT, DDIM R, EDCTNI, NTPROBNP, CHEM8, LIPASE, CMETADD #### Unless otherwise noted, all testing performed by [facility] [place] [address] [address] [place], [place] [address] CLIA: [id number] Front Desk Host: Maurice Coello M.D. 07-04-2017 13:06-0400 BMI (Body Mass Index) 33.28 kg/m2 Vaibhav Naranjo [facility] Work Phone: 07-04-2017 13:06-0400 Height 165.1 cm Vaibhav Naranjo [facility] Work Phone: 07-04-2017 13:06-0400 Weight 90.72 kg Vaibhav Naranjo [facility] Work Phone: Encounters Encounter Date Encounter Type Care Provider Facility Start: 09-11-2025 End: 09-12-2025 Emergency department patient visit [facility] Start: 09-01-2025 End: 09-01-2025 ambulatory [facility] Start: 08-28-2025 End: 08-28-2025 Telephone encounter Garland Kumar RD, [facility] Start: 08-27-2025 End: 08-27-2025 Telephone encounter Garland Kumar [facility], [facility] Start: 08-11-2025 End: 08-11-2025 Emergency department patient visit [facility] Start: 08-07-2025 End: 08-07-2025 Telephone encounter [facility] Start: 08-05-2025 End: 08-05-2025 Documentation procedure Garland Kumar RD, [facility] Comment on above: CMN and clinic notes securely faxed to [facility] @ Start: 07-23-2025 End: 07-23-2025 ambulatory ANDRE MARTINEZ [facility] Start: 07-23-2025 End: 07-23-2025 ambulatory EMMETT HYMAN [facility] Start: 07-23-2025 End: 07-23-2025 Office outpatient visit 40 minutes Emmett Hyman MD Work Phone: [facility] Comment on above: Follow Up (Medical) Start: 07-20-2025 Non-patient / Non-visit Dr. Vincent Hood MD [facility] Work Phone: Start: 07-19-2025 Non-patient / Non-visit Dr. Mally Cano MD -[facility] Work Phone: Start: 07-18-2025 Non-patient / Non-visit Dr. Mally Cano MD [facility] Work Phone: Start: 07-17-2025 ambulatory Jennifer Gordon [facility] Start: 07-17-2025 End: 07-20-2025 Evaluation and management of inpatient Dr. Elana Deshpande DO -Progressive Care Unit Work Phone: Start: 07-11-2025 End: 07-11-[address] Jennifer Gordon MD Work Phone: -Sleep Lab Start: 07-11-2025 End: 07-11-2025 Patient encounter procedure BARBARA Black -Sleep Lab Work Phone: Start: 07-11-2025 End: 07-11-2025 ambulatory Colette Black Facility:[facility] Start: 07-09-2025 ambulatory [facility] Start: 06-26-2025 End: 06-26-[address] Jennifer Gordon MD Work Phone: -[facility] [place] Start: 06-26-2025 End: 06-26-2025 Patient encounter procedure Mihaela Simpson NP-C -[facility] Work Phone: Start: 06-26-2025 End: 06-26-2025 Patient encounter procedure Mihaela Simpson NP-C -[facility] Work Phone: Start: 06-26-2025 End: 06-26-[address] Jennifer Gordon MD Work Phone: -[facility] Start: 06-26-2025 End: 06-26-2025 ambulatory Jennifer Gordon Facility:[facility] Start: 06-24-2025 End: 06-24-[address] Jennifer Gordon MD Work Phone: -Pulmonary Services/Neurology Start: 06-24-2025 End: 06-24-2025 Patient encounter procedure BARBARA Black -Pulmonary Services/Neurology Work Phone: Start: 06-24-2025 End: 06-24-2025 ambulatory Colette Black Facility:[facility] Start: 06-17-2025 End: 06-17-2025 Patient encounter procedure [facility] Colette Black [facility] Work Phone: Start: 06-17-2025 End: 06-17-[address] Jennifer Gordon MD Work Phone: -[facility] Start: 06-17-2025 End: 06-17-2025 Telephone encounter Nikolai Gray [facility] Comment on above: Follow Up (Medical) Start: 06-11-2025 End: 06-11-2025 Telephone encounter [facility] Start: 05-07-2025 End: 05-07-[address] Jennifer Gordon MD Work Phone: -Ultrasound [facility] Start: 05-07-2025 End: 05-07-[address] Jennifer Gordon MD -Ultrasound [facility] Work Phone: Start: 05-07-2025 End: 05-07-2025 ambulatory Jennifer Gordon Facility:[facility] Start: 05-02-2025 End: 05-02-2025 Telephone encounter Meag[facility] Start: 04-30-2025 End: 04-30-2025 Office outpatient visit 25 minutes Cb Boudreaux MD Work Phone: [facility] Comment on above: NSVT (nonsustained v entricular tachycardia) (HCC) Start: 04-30-2025 End: 04-30-2025 ambulatory PHYSICIAN NO [facility] Start: 04-28-2025 ambulatory [facility] Start: 04-17-2025 End: 04-17-[address] Jennifer Gordon MD Work Phone: [facility] Work Phone: Start: 04-17-2025 End: 04-17-2025 Patient encounter procedure Sasha Heredia [facility] Work Phone: Start: 2025 End: [address] Jennifer Gordon MD [facility] Work Phone: Start: 2025 End: 04-17-[address] Jennifer Gordon MD Work Phone: [facility] Work Phone: Start: 2025 End: 2025 ambulatory Jennifer Gordon Facility:[facility] Start: 04-07-2025 End: 04-07-2025 ambulatory PHYSICIAN [facility] Start: 04-04-2025 End: 04-04-2025 Patient encounter procedure BARBARA Black -[facility] Work Phone: Start: 04-04-2025 End: 04-04-[address] Jennifer Gordon MD Work Phone: [facility] Work Phone: Start: 04-03-2025 End: 04-03-[address] Cary Jacobsen MD [facility] Work Phone: Start: 04-03-2025 End: 04-03-[address] Jennifer Gordon MD Work Phone: [facility] Work Phone: Start: 03-27-2025 End: 03-27-[address] Rusty Dozier MD -[facility] Work Phone: Start: 03-27-2025 End: 03-27-2025 ambulatory Jennifer Gordon Facility:[facility] Start: 03-05-2025 End: 06-15-2025 Telephone encounter Shaina Boykin MD Work Phone: [facility] Comment on above: Illness Start: 02-28-2025 ambulatory Cary Jacobsen Facility :[facility] Start: 02-27-2025 End: 02-27-[address] Melvin Oshea MD -[facility] Start: 02-27-2025 End: 02-27-2025 ambulatory Melvin Oshea Facility:[facility] Start: 02-27-2025 End: 02-27-2025 Patient encounter procedure Hui SANCHEZ -[facility] Work Phone: Start: 02-27-2025 End: 02-27-2025 ambulatory Hui Ventura Facility:[facility] Start: 02-25-2025 End: 02-25-[address] Cary Jacobsen MD -[facility] Work Phone: Start: 02-25-2025 End: 02-25-2025 ambulatory Cary Jacobsen Facility:[facility] Start: 02-13-2025 End: 02-18-2025 Evaluation and management of inpatient Astrid Sanders DO Work Phone: [facility] Start: 02-05-2025 End: 02-05-2025 Refill Julissa Parikh [facility] Comment on above: Refill Request (Dolj enrique ) Start: 02-03-2025 End: 02-03-[address] Jennifer Gordon MD Work Phone: [facility] Work Phone: Start: 02-03-2025 End: 02-03-2025 Patient encounter procedure Hui SANCHEZ -[facility] Work Phone: Start: 02-03-2025 ambulatory Flavia hSine Facility:[facility] Start: 02-03-2025 End: 02-03-2025 ambulatory Hui Ventura Facility:[facility] Start: 01-21-2025 End: 01-21-[address] Cary Jacobsen MD [facility] Work Phone: Start: 01-21-2025 End: 01-21-2025 ambulatory Jennifer Gordon Facility:[facility] Start: 01-13-2025 End: 01-13-[address] Jennifer Gordon MD Work Phone: [facility] Work Phone: Start: 01-13-2025 End: 01-13-[address] Rusty Dozier MD -[facility] Work Phone: Start: 01-13-2025 End: 01-13-2025 ambulatory Jennifer Gordon Facility:[facility] Start: 01-06-2025 End: 01-06-2025 Patient encounter procedure Hui SANCHEZ -[facility] Work Phone: Start: 01-06-2025 End: 01-06-2025 ambulatory Hui Whitehead Facility:[facility] Start: 01-01-2025 End: 01-01-2025 Emergency department patient visit Dr. Teddy Rust MD -Emergency Department Work Phone: Start: 12-26-2024 End: 12-26-[address] Rusty Dozier MD -[facility] Work Phone: Start: 12-26-2024 End: 12-26-2024 ambulatory Jennifer Heidi Facility:[facility] Start: 11-12-2024 End: 11-12-2024 Emergency department patient visit PHYSICIAN NO [facility] Start: 10-25-2024 ambulatory PHYSICIAN NO [facility] Ambulatory Start: 10-23-2024 End: 10-23-2024 Orders Only Cb Boudreaux MD Work Phone: [facility] Comment on above: Ventricular tachycar liv (HCC) (Primary Dx); Palpitations; NSVT (nonsustained ventricular tachycardia) (HCC) Start: 10-16-2024 End: 10-16-[address] Jennifer Gordon MD -[facility] Work Phone: Start: 10-16-2024 End: 10-16-2024 ambulatory Jennifer Gordon Facility:[facility] Start: 10-15-2024 End: 10-15-2024 Telephone encounter Cecille Johnson LPN [facility] Comment on above: Medication Prior Aut horization (General) (Dojolvi) Start: 09-21-2024 End: 09-25-2024 Evaluation and management of inpatient Sally Talbot MD Work Phone: [facility] Intermediate Start: 09-18-2024 End: 09-18-2024 Office outpatient new 45 minutes Provider Not In System [facility] Comment on above: Ventricular tachycar liv (HCC); Palpitations; NSVT (nonsustained ventricular tachycardia) (HCC) Start: 09-18-2024 End: 09-18-2024 ambulatory PHYSICIAN NO [facility] Start: 09-16-2024 End: 09-16-2024 Orders Only Cb Boudreaux MD Work Phone: [facility] Comment on above: NSVT (nonsustained v entricular tachycardia) (HCC) (Primary Dx) Start: 09-02-2024 End: 09-03-2024 Evaluation and management of inpatient Thee Salmeron MD Work Phone: [facility] Inter[facility] Start: 09-02-2024 End: 09-02-2024 Orders Only Rivas Jules MD Work Phone: [facility] Comment on above: Pain (Primary Dx) Start: 08-21-2024 ambulatory JONATHAN RUTHERFORD [facility] Ambulatory Start: 08-14-2024 End: 08-14-2024 Transcribe Orders Provider Not In System [facility] Start: 03-06-2024 Refill Raya Dutton MA Work Phone: [facility] Comment on above: Medication Refill (L evocarnitine ) Start: 02-29-2024 End: 02-29-[address] Jennifer Gordon Work Phone: [facility] Work Phone: Start: 02-29-2024 End: 02-29-[address] Jennifer Gordon Work Phone: [facility] Work Phone: Start: 02-21-2024 End: 02-21-[address] Jennifer Gordon Work Phone: [facility] Work Phone: Start: 02-21-2024 End: 02-21-[address] Jennifer Gordon Work Phone: [facility]-Pulmonary Services/Neurology Work Phone: Start: 02-07-2024 Non-patient / Non-visit Dr. Stevens Work Phone: [facility] Start: 01-29-2024 Refill Cecille Johnson LPN [facility] Comment on above: Medication Refill (D ojolvi) Start: 01-15-2024 End: 01-15-[address] Jennifer Gordon Work Phone: [facility] Pulmonary Medicine Work Phone: Start: 01-03-2024 End: 01-03-[address] Jennifer Gordon Work Phone: [facility] Work Phone: Start: 01-03-2024 End: 01-03-[address] Jennifer Gordon Work Phone: [facility] Work Phone: Start: 12-29-2023 End: 12-29-[address] Jennifer Gordon Work Phone: [facility] Work Phone: Start: 12-29-2023 End: 12-29-[address] Jennifer Gordon Work Phone: [facility]-Laboratory Work Phone: Start: 12-11-2023 End: 12-11-[address] Jennifer Gordon Work Phone: [facility] Work Phone: Start: 12-11-2023 End: 12-11-[address] Jennifer Gordon Work Phone: [facility] Internal Medicine Work Phone: Start: 11-28-2023 End: 11-28-[address] Jennifer Gordon Work Phone: [facility] Work Phone: Start: 11-28-2023 End: 11-28-[address] Jennifer Gordon Work Phone: [facility] Neurology Work Phone: Start: 10-17-2023 Telephone encounter Meliza Rust [facility] Start: 10-17-2023 End: 10-17-[address] Jennifer Gordon Work Phone: [facility] Work Phone: Start: 10-16-2023 End: 10-16-2023 Office outpatient visit 15 minutes Rivas Jules MD Work Phone: [facility] Comment on above: Trigger finger of le ft thumb (Primary Dx) Start: 10-06-2023 Orders Only Tawanna Verma LPN [facility] Comment on above: Pain (Primary Dx) Start: 07-03-2023 End: 07-03-[address] Jennifer Gordon Work Phone: [facility] Work Phone: Start: 07-03-2023 End: 07-03-[address] Jennifer Gordon Work Phone: [facility] Work Phone: Start: 06-05-2023 Non-patient / Non-visit Dr. Ra ludy Dozier Work Phone: [facility] Start: 06-05-2023 End: 06-05-[address] Jennifer Gordon Work Phone: [facility] Work Phone: Start: 06-05-2023 End: 06-05-[address] Rusty Dozier Work Phone: [facility] Start: 06-05-2023 End: 06-05-[address] Rusty Dozier Work Phone: [facility] Work Phone: Start: 06-01-2023 End: 06-01-[address] Rusty Dozier Work Phone: [facility] Work Phone: Start: 06-01-2023 End: 06-01-[address] Rust[facility] Work [facility]: Start: 05-01-2023 Non-patient / Non-visit Dr. Ra ludy Dozier Work Phone: [facility] Start: 05-01-2023 End: 05-01-[address] Rusty Dozier Work Phone: [facility] Work Phone: Start: 05-01-2023 End: 05-01-[address] Rust[facility] Do[facility] Work [facility] Start: 04-25-2023 End: 04-25-2023 Non-patient / Non-visit Dr. Rusty Dozier Work Phone: [facility] Work Phone: Start: 04-25-[address] Andrew Dozier [facility] Work [facility] Start: 04-18-2023 End: 04-18-[address] Rusty Dozier Work Phone: [facility] Work Phone: Start: 03-20-2023 Non-patient / Non-visit Dr. Ra ludy Dozier Work Phone: [facility] Work Phone: Start: 02-27-2023 Telephone encounter Jada Newton [facility] Comment on above: FOLLOW-UP Start: 02-24-2023 End: 02-24-[address] 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 Start: 02-07-2023 End: 02-07-2023 ambulatory [facility] Jonathan Rutherford [facility] Work Phone: [facility] Work Phone: Start: 02-07-2023 End: 02-07-2023 Patient encounter procedure [facility] Jonathan Rutherford [facility] Work Phone: [facility] Start: 02-07-2023 End: 02-07-2023 Patient encounter procedure [facility] Jonathan Rutherford [facility] Work Phone: [facility] Neurology Start: 12-28-2022 Non-patient / Non-visit [facility] T yanet Rutherford [facility] Work Phone: [facility] Start: 12-28-2022 End: 12-28-2022 ambulatory [facility] Jonathan Rutherford [facility] Work Phone: [facility] Work Phone: Start: 12-28-2022 End: 12-28-2022 Patient encounter procedure [facility] Jonathan Rutherford [facility] Work Phone: [facility] Start: 12-14-2022 Orders Only Suzan Gordon MD Work Phone: [facility] Start: 12-07-2022 End: 12-07-2022 Patient encounter procedure [facility] Jonathan Rutherford [facility] Work Phone: [facility] Start: 12-06-2022 Telephone encounter Rocio Nickerson N [facility] Comment on above: Medication Review [facility] (Dojolivi) Start: 12-05-2022 Documentation procedure Khadra Garcia [facility] Comment on above: Refill request for D OJOLVI. Start: 12-01-2022 End: 12-01-2022 ambulatory [facility] Jonathan Rutherford [facility] Work Phone: [facility] Work Phone: Start: 12-01-2022 End: 12-01-2022 Patient encounter procedure [facility] Jonathan Rutherford [facility] Work Phone: [facility] [place] Start: 12-01-2022 End: 12-01-2022 Patient encounter procedure [facility] Jonathan Rutherford [facility] Work Phone: [facility] Internal Medicine Start: 11-23-2022 Telephone encounter Jada Glez [facility] Comment on above: Change Appointment Start: 10-06-2022 End: 10-06-[address] Rusty Dozier Work Phone: [facility] Work Phone: Start: 10-06-2022 End: 10-06-[address] Rusty Dozier Work Phone: [facility] Start: 10-06-2022 End: 10-06-[address] Rusty Dozier Work Phone: [facility] Neurology Start: 08-30-2022 Telephone encounter Shakira Cline MD Work Phone: [facility] Start: 07-19-2022 End: 07-19-2022 Office outpatient visit 15 minutes Debra Adamson RUIZ Work Phone: [facility] G[facility] Comment on above: Pain of upper abdome n (Primary Dx); Nausea; Diarrhea, unspecified type Start: 07-08-2022 End: 07-08-2022 Office outpatient visit 25 minutes Estrada Garcia MD Work Phone: [facility] Comment on above: COPD exacerbation (H CC) (Primary Dx); Screening for lung cancer Start: 06-21-2022 Critical care ill/in jured patient init 30-74 min Jaiden Bagley MD Work Phone: [facility] Start: 06-21-2022 End: 06-29-2022 Evaluation and management of inpatient Jaiden Bagley MD Work Phone: [facility] Med Surg Start: 03-30-2022 End: 04-04-2022 Evaluation and management of inpatient Jada Vargas MD Work Phone: [facility] Start: 03-28-2022 Documentation procedure Jyoti Thomas on [facility] Start: 03-21-2022 Documentation procedure Jyoti Thomas on [facility] Start: 03-08-2022 Orders Only Jyoti Reeves [facility] Comment on above: Rectal prolapse (Sarah aye Dx); Preoperative testing; Abdominal pain, unspecified abdominal location Start: 03-08-2022 Patient encounter status Jyoti Patel son [facility] Start: 03-07-2022 Orders Only Jyoti Reeves [facility] Comment on above: Rectal prolapse (Sarah aye Dx) Start: 03-01-2022 Admission to [facility] Jada Vargas MD Work Phone: [facility] Start: 03-01-2022 End: 03-01-2022 Office outpatient visit 10 minutes Jada Vargas MD Work Phone: [facility] Comment on above: Rectal prolapse Start: 01-07-2022 Admission to [facility] [place] [facility] Comment on above: Hx of colonic polyps (Primary Dx) Start: 01-07-2022 Documentation procedure America quiles [place] [facility] Comment on above: Hx of colonic polyps (Primary Dx) Start: 12-30-2021 End: 12-30-2021 Office outpatient new 45 minutes Estrada Garcia MD Work Phone: [facility] Comment on above: Screening for lung c ancer (Primary Dx); Chronic obstructive pulmonary disease, unspecified COPD type (HCC) Start: 08-04-2021 End: 08-04-2021 Office outpatient new 30 minutes Chepe Yin CNP Work Phone: [facility] Comment on above: Dizzy (Primary Dx); Positional lightheadedness; Chronic rhinitis; Dysfunction of Eustachian tube, unspecified laterality Start: 07-29-2021 Transcribe Orders Lilliana dennison [facility] Comment on above: Rectal prolapse (Sarah aye Dx) Start: 07-22-2021 Transcribe Orders Alan Saba MD Work Phone: [facility] Comment on above: Dizzy (Primary Dx) Start: 04-23-2021 Patient encounter procedure Elana Westbrook PT Work Phone: [facility] Work Phone: Start: 2021 PTRECHADUL, Provider : Elana Westbrook, Status: Pen, Time: 4:00 PM February MOLDER APPRENTICE Work Phone: [facility] Work Phone: Start: 04-14-2021 Patient encounter procedure February David MOLDER APPRENTICE Work Phone: [facility] [place] Work Phone: Start: 04-14-2021 [email or web address], Provider : Anjana Hernandez, Status: Pen, Time: 4:30 PM February David MOLDER APPRENTICE Work Phone: [facility] [place] Work Phone: Start: 04-14-2021 End: 04-14-2021 Emergency department patient visit Georgie Vázquez MD Work Phone: [facility] Emergency Department Start: 04-12-2021 Patient encounter procedure February David MOLDER APPRENTICE Work Phone: [facility] [place] Work Phone: Start: 04-09-2021 Patient encounter procedure Eli Benjamin MOLDER APPRENTICE Work Phone: [facility] [place] Work Phone: Start: 03-31-2021 [email or web address], Provider : River Sweeney, Status: Pen, Time: 4:15 PM February David MOLDER APPRENTICE Work Phone: [facility] [place] Work Phone: Start: 03-29-2021 Patient encounter procedure February David MOLDER APPRENTICE Work Phone: [facility] [place] Work Phone: Start: 01-06-2021 End: 01-06-2021 Orders Only Sheri Bergeron Work Phone: [facility] Start: 11-24-2020 End: 11-24-2020 Patient encounter procedure Rusty Dozier Work Phone: [facility] Comment on above: Polyneuropathy Start: 11-09-2020 End: 11-09-2020 Subsequent hospital visit by physician Flori Rodrigues Work Phone: [facility] Orth[facility] Clinic Comment on above: Pain Start: 11-09-2020 End: 11-09-2020 Office outpatient new 30 minutes Flori Risavenecia Rodrigues Work Phone: [facility] Comment on above: Primary osteoarthrit is of right knee (Primary Dx) Start: 11-02-2020 End: 11-02-2020 Emergency department patient visit Mars Christiansen Work Phone: [facility] Emergency Department Comment on above: Right knee pain, uns pecified chronicity (Primary Dx) Start: 09-15-2020 End: 09-15-2020 Subsequent hospital visit by physician Rivas Jules Work Phone: [facility] Comment on above: Pain Start: 09-15-2020 End: 09-15-2020 Office outpatient new 30 minutes Jonathan Rutherford Work Phone: [facility] Comment on above: Chronic right should er pain Start: 05-15-2020 End: 05-15-2020 Subsequent hospital visit by physician Elana Pena Work Phone: [facility] Comment on above: Claudication of lowe r extremity (HCC) Start: 05-07-2019 End: 05-07-2019 Emergency department patient visit Jose Long Work Phone: [facility] Emergency Department Comment on above: Right leg pain (Prim samantha Dx); Chronic pain syndrome; Bursitis, unspecified site Start: 05-07-2019 End: 05-07-2019 Subsequent hospital visit by physician Whitley Martinez Work Phone: [facility] Comment on above: Abnormal electrocard iogram ; Cardiomyopathy, unspecified type (HCC); Hypertension, unspecified type Start: 04-10-2019 End: 04-10-2019 Patient encounter procedure Rusty Dozier Work Phone: [facility] MRI Comment on above: Right hip pain Start: 04-05-2019 End: 04-05-2019 Office outpatient new 45 minutes Oscar Vinson Work Phone: [facility] Comment on above: Coronary artery dise ase, angina presence unspecified, unspecified vessel or lesion type, unspecified whether bois forte or transplanted heart; Cardiomyopathy, unspecified type (HCC); Sleep apnea, unspecified type; Chronic obstructive pulmonary disease, unspecified COPD type (HCC); Hypertension, unspecified type; Abnormal electrocardiogram ; Chest pain, unspecified type; 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[facility]) Start: 02-13-2019 Patient encounter procedure Facility:[id number] Start: 01-23-2019 Patient encounter procedure Facility:[facility] Start: 01-14-2019 Patient encounter procedure Facility:[facility] Start: 11-29-2018 End: 12-01-2018 Evaluation and management of inpatient Tom Nieves Facility:[facility] Start: 10-10-2018 Patient encounter procedure Jonathan Rutherford Facility:[facility] Start: 09-17-2018 Patient encounter procedure Oscar Vinson Facility:[facility] Start: 07-11-2018 End: 07-11-2018 Patient encounter procedure Tyshawn Santos Facility:[facility] Start: 07-02-2018 End: 07-02-2018 Patient encounter [facility] Start: 07-02-2018 Patient encounter procedure Bety Hernandez Facility:[facility] Start: 07-02-2018 End: 07-02-2018 Patient encounter Andre Martinez Work Phone: [facility] Start: 06-22-2018 Patient encounter procedure Kailee Louis Facility:[facility] Start: 06-20-2018 End: 06-22-2018 Patient encounter procedure Tom Nieves Facility:[facility] Start: 05-28-2018 Patient encounter procedure Vaibhav Naranjo Facility:[facility] Start: 05-18-2018 Patient encounter procedure Vaibhav Naranjo Facility:[facility] Start: 02-05-2018 Patient encounter procedure Andre Sernaada Facility:[facility] Start: 02-05-2018 End: 02-05-2018 Ambulatory Andre Martinez Work Phone: [facility] Start: 01-29-2018 End: 01-30-2018 Patient encounter procedure Jossie Alcazar Facility:[facility] Start: 01-12-2018 End: 01-12-2018 Patient encounter [facility] Start: 01-12-2018 End: 01-12-2018 Ambulatory Bety Hernandez Work Phone: [facility] Start: 11-02-2017 End: 11-02-2017 Ambulatory ELANA PENA Facility:[facility] Start: 09-15-2017 End: 09-15-2017 Ambulatory Elana Pena Work Phone: [facility] Start: 08-16-2017 End: 08-16-2017 Ambulatory Bety Hernandez Work Phone: [facility] Start: 07-05-2017 End: 07-05-2017 Ambulatory Bety Hernandez Work Phone: [facility] Start: 07-04-2017 Patient encounter Vaibhav Naranjo Work Phone: [facility] [place] Start: 08-30-2016 End: 08-30-2016 Ambulatory Brittany Rushing Work Phone: [facility] Start: 08-24-2016 End: 08-24-2016 Telephone encounter Brittany Rushing Work Phone: [facility] Comment on above: Results Procedures Date Procedure Procedure Detail Performing Clinician Start: 07-23-2025 Blood count hemoglobin EMMETT HYMAN Start: 07-23-2025 Follow-up visit Follow Up (Medical) EMMETT HYMAN Start: 07-20-[address] Jennifer Gordon MD Work Phone: Start: 07-19-2025 Serum inorganic phos phate measurement Dr. Jennifer Gordno MD Work Phone: Start: 07-18-2025 Urnls dip [...] Work Phone: Start: 02-18-2025 Glucose measurement [facility] Work Phone: Start: 02-17-2025 Glucose measurement [facility] Work Phone: Start: 02-17-2025 Glucose measurement [facility] Work Phone: Start: 02-17-2025 Basic metabolic pane l calcium total Olga Russell MD Work Phone: Start: 02-17-2025 Glucose measurement Gen jonatan [facility] Work Phone: Start: 02-16-2025 Glucose measurement Gen jonatan [facility] Work Phone: Start: 02-16-2025 Glucose measurement Gen jonatan [facility] Work Phone: Start: 02-16-2025 Glucose measurement Gen jonatan [facility] Work Phone: Start: 02-16-2025 Radiologic exam ches t single view Olga Russell MD Work Phone: Start: 02-16-2025 Natriuretic peptide Afia Russell MD Work Phone: Start: 02-16-2025 Ecg routine ecg w/le ast 12 lds w/i&r Astrid S Sanders DO Work Phone: Start: 02-16-2025 Glucose measurement Gen jonatan [facility] Work Phone: Start: 02-16-2025 Basic metabolic pane l calcium total Olga Russell MD Work Phone: Start: 02-15-2025 Iadna-dna/rna gi pth gn multiplex probe tq 6-11 Olga Russell MD Work Phone: Start: 02-15-2025 Basic metabolic pane l calcium total Olga Russell MD Work Phone: Start: 02-15-2025 End: 02-15-2025 Glucose measurement Generic [facility] Work Phone: Start: 02-14-2025 End: 02-14-2025 Electrocardiogram Generic [facility] Work Phone: Start: 02-14-2025 Basic metabolic pane l calcium total Susan Thakur MD Work Phone: Start: 02-14-2025 Iadna s aureus methi cillin resist amp probe tq Andreeluiz Raineshens [facility],PharmD Start: 02-13-2025 Assay of troponin quantitative Susan [...] Work Phone: Start: 09-22-2024 Electrocardiogram Gener ic [facility] Work Phone: Start: 09-22-2024 Assay of troponin quantitative Norman Mejía [facility] Work Phone: Start: 09-22-2024 Basic metabolic pane l calcium total Nabila Chavez MD Work Phone: Start: 09-22-2024 End: 09-22-2024 Iaad ia mult step method nos each organism Nabila Chavez MD Work Phone: Start: 09-21-2024 Antibody mycoplsm Nabila Chavez MD Work Phone: Start: 09-21-2024 Culture bacterial bl ood aerobic w/id isolates Nabila Cahvez MD Work Phone: Start: 09-21-2024 Procalcitonin (pct) [...] Work Phone: Start: 09-02-2024 Electrocardiogram Gener ic [facility] Work Phone: Start: 09-02-2024 Assay [...] Verma LPN Start: 06-29-2022 Glucose measurement [facility] Work Phone: Start: 06-29-2022 End: 06-29-2022 Renal function panel Sheri Hale MD Work Phone: Start: 06-28-2022 Glucose measurement [facility] Work Phone: Start: 06-28-2022 Glucose measurement [facility] Work Phone: Start: 06-28-2022 Glucose measurement [facility] Work Phone: Start: 06-28-2022 Glucose measurement [facility] Work Phone: Start: 06-28-2022 Comprehensive metabo lic panel Sheri Hale MD Work Phone: Start: 06-28-2022 Hepatic function panel Leodan Geronimo MD Work Phone: Start: 06-28-2022 Tissue transglutamin ase IgA measurement Nessa Jay [facility] Work Phone: Start: 06-27-2022 Glucose measurement [facility] Work Phone: Start: 06-27-2022 Glucose measurement [facility] Work Phone: Start: 06-27-2022 Glucose measurement [facility] Work Phone: Start: 06-27-2022 Renal function panel John Hale MD Work Phone: Start: 06-26-2022 Glucose measurement [facility] Work Phone: Start: 06-26-2022 Glucose measurement [facility] Work Phone: Start: 06-26-2022 Glucose measurement [facility] Work Phone: Start: 06-26-2022 Glucose measurement [facility] Work Phone: Start: 06-26-2022 Renal function panel John Hale MD Work Phone: Start: 06-25-2022 Glucose measurement [facility] Work Phone: Start: 06-25-2022 Glucose measurement [facility] Work Phone: Start: 06-25-2022 SARS-CoV-2 (COVID-19 ) RNA [Presence] in Respiratory specimen by CATRINA with probe detection Sheri Hale MD Work Phone: Start: 06-25-2022 Radiologic exam ches t single view Sheri Hale MD Work Phone: Start: 06-25-2022 Glucose measurement [facility] Work Phone: Start: 06-25-2022 Glucose measurement [facility] Work Phone: Start: 06-25-2022 Renal function panel John Hale MD Work Phone: Start: 06-24-2022 Glucose measurement [facility] Work Phone: Start: 06-24-2022 Glucose measurement [facility] Work Phone: Start: 06-24-2022 Glucose measurement [facility] Work Phone: Start: 06-24-2022 Assay of troponin quantitative Sheri Hale MD Work Phone: Start: 06-24-2022 Radiologic exam ches t single view Sheri Hale MD Work Phone: Start: 06-24-2022 Ecg routine ecg w/le ast 12 lds trcg only w/o i&r Sheri Hale MD Work Phone: Start: 06-24-2022 Renal function panel John Hale MD Work Phone: Start: 06-24-2022 Glucose measurement [facility] Work Phone: Start: 06-23-2022 Glucose measurement [facility] Work Phone: Start: 06-23-2022 Glucose measurement [facility] Work Phone: Start: 06-23-2022 Level iv surg pathol ogy gross&microscopic exam Tyshawn Santos MD Work Phone: Start: 06-23-2022 Sigmoidoscopy Tyshawn Santos MD Work Phone: Start: 06-23-2022 End: 06-23-2022 SIGMOIDOSCOPY FLEXIBLE Tyshawn Santos MD Work Phone: Start: 06-23-2022 Glucose measurement [facility] Work Phone: Start: 06-23-2022 Glucose measurement [facility] Work Phone: Start: 06-23-2022 Basic metabolic pane l calcium total Kailee Louis [facility] Work Phone: Start: 06-22-2022 Glucose measurement [facility] Work Phone: Start: 06-22-2022 Glucose measurement [facility] Work Phone: Start: 06-22-2022 Glucose measurement [facility] Work Phone: Start: 06-22-2022 Glucose measurement [facility] Work Phone: Start: 06-21-2022 Glucose measurement [facility] Work Phone: Start: 06-21-2022 Glucose measurement [facility] Work Phone: Start: 06-21-2022 [...] routine ecg w/le ast 12 lds w/i&r Senior Inspector Generic Start: 03-30-2022 Glucose measurement William Vargas [...] 11-02-2020 Dup-scan xtr veins unilateral/limited study Fay Sacnhez Work Phone: Start: 11-02-2020 Radiologic examinati on [...] Unless otherwise noted, all testing performed by [facility] [employer] [address] [facility] [place] [address] CLIA: [id number] Front Desk Host: Maurice Coello M.D. Start: 07-02-2018 End: 07-02-2018 [...] Unless otherwise noted, all testing performed by [place] [address] CLIA: [id number] Front Desk Host: Maurice Coello M.D. Start: 07-05-2016 Mammography Whitley Cobb my Plan of Treatment Date Care Activity Detail Author Start: 2033 RSV Immunization (1 - 1-dose 75+ series) RSV Immunization (1 - 1-dose 75+ series) [facility] Start: 02-18-2032 Screening for malignant neoplasm [facility] Start: 06-23-2027 Screening for malignant neoplasm of colon Flexible sigmoidoscopy [facility] Start: 02-17-2027 Screening for malignant neoplasm of colon [facility] Start: 02-18-2026 Depression screening using PHQ-9 (Patient Health Questionnaire 9) score Depression Screening/Follow-Up (PHQ-2/9) [facility] Start: 02-18-2026 eGFR - Kidney Disease eGFR - Kidney Disease [facility] Start: 02-13-2026 Screening for malignant neoplasm of lung Low-dose CT Lung Cancer Screen [facility] Start: 09-23-2025 Urine screening for protein eGFR - Kidney Disease [facility] Start: 09-03-2025 Urine screening for protein eGFR - Kidney Disease [facility] Start: 09-02-2025 Urine screening for protein eGFR - Kidney Disease [facility] Start: 07-23-2025 End: 07-23-2026 ACYLCARNITINES, QUANTITATIVE, PLASMA & SERUM ACYLCARNITINES, QUANTITATIVE, PLASMA & SERUM Lab Routine CPT2 deficiency Expected: 07/23/2025 (Approximate), Expires: 07/23/2026 [facility] Work Phone: Comment on above: Expected: 07/23/2025 (Approximate), Expi res: 07/23/2026 Start: 07-20-2025 Patient discharge [facility] Start: 07-18-2025 Continuous positive airway pressure ventilation treatment [facility] Start: 07-18-2025 Following clinical pathway protocol [facility] Start: 07-18-2025 Patient referral to dietitian [facility] Start: 07-17-2025 Assessment of risk of venous thromboembolism [facility] Start: 07-17-2025 Inhalation therapy procedure [facility] Start: 07-17-2025 Insertion of catheter into peripheral vein [facility] Start: 07-17-[address] and output [facility] Start: 07-17-2025 Oxygen therapy [facility] Start: 07-17-2025 Providing care according to standard [facility] Start: 07-17-2025 Provision of activity privileges [facility] Start: 07-17-2025 Referral for physical therapy [facility] Start: 07-17-2025 Referral to occupational therapist [facility] Start: 07-17-2025 Referral to service [facility] Start: 07-17-2025 [facility] Start: 07-17-2025 Urinalysis complete panel - Urine [facility] Start: 07-17-2025 Verification routine [facility] Start: 07-17-2025 Admission procedure [facility] Start: 07-17-2025 Hospital admission, emergency, from emergency room, medical nature [facility] Start: 07-17-2025 [facility] Start: 07-07-2025 COVID-19 Vaccine ( season) COVID-19 Vaccine ( season) [facility] Start: 07-07-2025 Influenza vaccination Influenza Vaccine (#1) [facility] Start: 07-04-2025 Polysomnography [facility] Start: 06-11-2025 End: 06-11-2025 Patient encounter procedure 06/11/2025 3:15 PM EDT Appointment [facility] [address] [facility] [facility] 4th [place] [address] [place] [address] Emmett Hyman MD [address] [place] [address] Discharge Disposition: Home [facility] Start: 04-30-2025 End: 04-30-2025 Patient encounter procedure 04/30/2025 10:20 AM EDT Office Visit [facility] [address] [facility] [facility] [address] [address] [place] [address] Cb Boudreaux MD [address] [place] [address] [facility] Start: 01-15-2025 End: 01-15-2025 Patient encounter procedure 01/15/2025 2:00 PM EDT Office Visit [facility] [address] 3rd [place] [phone] Cb Boudreaux MD [address] [place] [address] [facility] Start: 01-06-2025 Patient referral [facility] Work Phone: Start: 01-01-2025 [facility] Start: 11-21-2024 End: 11-21-2024 Patient encounter procedure 11/21/2024 8:00 AM EST Appointment [facility] MRI [address] [facility] [place] [phone] Cb Boudreaux MD [address] [place] [address] [facility] MRI Start: 09-18-2024 End: 09-18-2024 Patient encounter procedure 09/18/2024 1:00 PM EST Office Visit [facility] [address] [facility] [place] [id number] System, Provider Not In Cb Boudreaux MD [address] [facility] [place] [address] [facility] Start: 07-07-2024 COVID-19 Vaccine ( season) COVID-19 Vaccine ( season) [facility] Start: 07-07-2024 COVID-19 Vaccine ( season) COVID-19 Vaccine ( season) [facility] Start: 07-07-2024 Influenza vaccination [facility] Start: 07-03-2024 Screening for malignant neoplasm of lung Low-dose CT Lung Cancer Screen [facility] Start: 06-03-2024 End: 06-03-2024 Patient encounter procedure 06/03/2024 2:00 PM EDT Appointment [facility] [address] 4th [place] [address] [place] [address] Suzan Gordon MD [address] [place] [address] Discharge Disposition: Home [facility] Start: 02-29-2024 Hemoglobin A1c/Hemoglobin.total in Blood [facility] Start: 02-29-2024 [facility] Start: 02-12-2024 End: 02-12-2024 Patient encounter procedure [facility] Start: 02-07-2024 Patient referral [facility] Work Phone: Start: 11-28-2023 Moonachie and lambda light chains [facility] Start: 11-28-2023 Serum immunofixation [facility] Start: 11-28-2023 Urine immunofixation [facility] Start: 11-07-2023 End: 11-07-2023 Patient encounter procedure 11/07/2023 2:45 PM EST Office Visit [facility] [address] [place] [address] [place] [address] Rivas Jules MD [address] [place] [address] [facility] Start: 10-16-2023 End: 10-16-2023 Patient encounter procedure 10/16/2023 2:00 PM EST Office Visit [facility] [address] [place] [address] [place] [address] [phone] Rivas Jules MD [address] [place] [address] [facility] Start: 09-24-2023 Screening for malignant neoplasm of lung Low-dose CT Lung Cancer Screen [facility] Start: 08-14-2023 End: 08-14-2023 Patient encounter procedure 08/14/2023 Appointment Genetics Suzan Gordon MD [address] [place] [address] [facility] Start: 08-08-2023 Urine screening for protein Urine Microalbumin [facility] Start: 07-07-2023 COVID-19 Vaccine ( season) COVID-19 Vaccine ( season) [facility] Start: 07-07-2023 Influenza vaccination [facility] Start: 07-03-2023 Elastase, pancreatic (el-1), fecal; quantitative [facility] Start: 06-05-2023 Patient referral [facility] Work Phone: Start: 06-05-2023 Celiac disease screen [facility] Start: 2023 Fall risk assessment Falls Risk Assessment [facility] Start: 2023 Pneumococcal Vaccine: 65+ Years (1 of 1 - PCV) Pneumococcal Vaccine: 65+ Years (1 of 1 - PCV) [facility] Start: 03-31-2023 Depression screening using PHQ-9 (Patient Health Questionnaire 9) score [facility] Start: 03-24-2023 Hemoglobin A1c measurement A1C [facility] Start: 03-08-2023 Patient referral [facility] Work Phone: Start: 02-13-2023 End: 02-13-2023 Patient encounter procedure 02/13/2023 Appointment Genetics Suzan Gordon MD [address] [place] [address] [facility] Start: 01-30-2023 Pneumococcal Vaccine: Ped or At-Risk (2 of 4 - PPSV23) Pneumococcal Vaccine: Ped or At-Risk (2 of 4 - PPSV23) [facility] Start: 01-26-2023 End: 01-26-2023 Patient encounter procedure 01/26/2023 Appointment Radiology Estrada Garcia MD [address] [place] [address] [address] [facility] Scan Start: 01-24-2023 Microalbumin measurement, urine, quantitative Urine Microalbumin [facility] Start: 01-24-2023 Screening for malignant neoplasm of lung Low-dose CT Lung Cancer Screen [facility] Start: 01-24-2023 Urine screening for protein Urine Microalbumin [facility] Start: 01-05-2023 End: 07-08-2023 Low dose computed tomography of thorax CT Lung Cancer Screening Imaging Routine Screening for lung cancer Expected: 01/05/2023, Expires: 07/08/2023 [facility] Comment on above: Expected: 01/05/2023, Expires: Start: 12-01-2022 Patient referral [facility] Work Phone: Start: 10-06-2022 Moonachie and lambda light chains [facility] Work Phone: Start: 10-06-2022 Thiamine measurement [facility] Work Phone: Start: 08-31-2022 End: 08-31-2022 Patient encounter procedure 08/31/2022 Office Visit Pulmonology Estrada Garcia MD [address] [place] [address] [address] [facility] Start: 08-25-2022 Screening for malignant neoplasm of breast Mammogram [facility] Start: 08-16-2022 Mammography MAMMOGRAM [facility] Start: 08-16-2022 Screening for malignant neoplasm of breast Mammogram [facility] Start: 08-15-2022 End: 08-15-2022 Admission to same day surgery center 08/15/2022 Surgery Tyshawn Santos MD [address] [place] [address] ESOPHAGOGASTRODUODENOSCOPY [facility] Endoscopy Comment on above: ESOPHAGOGASTRODUODENOSCOPY Start: 08-15-2022 End: 08-15-2022 Esophagogastroduodenoscopy ESOPHAGOGASTRODUODENOSCOPY Pain of upper abdomen Nausea 08/15/2022 11:55 AM EDT [facility] Start: 08-15-2022 Subsequent hospital visit by physician 08/15/2022 Hospital Encounter Tyshawn Santos MD [address] [place] [address] [facility] Endoscopy Start: 08-02-2022 End: 08-02-2022 Patient encounter procedure 08/02/2022 Office Visit Cardiology Day, Roz Jacob MD [address] [place], [place] [address] [place] [address] [facility] Start: 07-19-2022 End: 07-19-2022 Patient encounter procedure 07/19/2022 Office Visit Gastroenterology Debra Adamson, [facility]TER [address] [place] [address] [facility] Start: 07-08-2022 End: 07-08-2022 Patient encounter procedure 07/08/2022 Office Visit Pulmonology Estrada Garcia MD [address] [address] [facility] Start: 07-07-2022 Influenza vaccination [facility] Start: 07-04-2022 End: 07-04-2022 Patient encounter procedure 07/04/2022 Office Visit Cardiology Day, Roz Jacob MD [address] [place] [address] [facility] Start: 03-30-2022 End: 03-30-2022 Admission to same day surgery center 03/30/2022 Surgery Jada Vargas MD [address] [place] [address] [facility] PROCEDURE [facility] Periop Comment on above: [facility] PROCEDURE Start: 03-30-2022 End: 03-30-2022 ALTEMEIER PROCEDURE [facility] PROCEDURE Rectal prolapse 03/30/2022 11:15 AM EDT [facility] Start: 03-30-2022 End: 03-30-2022 Admission to same day surgery center 03/30/2022 Surgery Jada Vargas MD [address] [facility] [address] [place] [address] [facility]TEMEIER PROCEDURE [facility] Periop Comment on above: [facility] PROCEDURE Start: 03-30-2022 End: 03-30-2022 ALTEMEIER PROCEDURE [facility] PROCEDURE Rectal prolapse 03/30/2022 9:50 AM EDT [facility] Start: 03-30-2022 Subsequent hospital visit by physician 03/30/2022 Hospital Encounter Jada Vargas MD [address] [facility] [address] [place] [address] [facility] Start: 03-29-2022 End: 03-29-2022 Patient encounter procedure 03/29/2022 Office Visit Pulmonology Estrada Garcia MD [address] [place] [address] [facility] Start: 03-28-2022 End: 03-28-2022 Patient encounter procedure 03/28/2022 Appointment Cardiology Roz Fontenot MD [address] [place] [address] [facility] Start: 03-28-2022 End: 03-28-2022 Patient encounter procedure 03/28/2022 Appointment Cardiology Roz Fontenot MD [address] [place] [address] [facility] Start: 03-22-2022 End: 03-22-2022 Patient encounter procedure 03/22/2022 Office Visit Pre-Admission Testing [facility] Preadmission Testing Start: 03-04-2022 End: 03-04-2022 Patient encounter procedure 03/04/2022 Appointment Cardiology Rusty Dozier MD [address] [address] [facility] Start: 02-25-2022 COVID-19 Vaccine (3 - Booster for Lisa series) COVID-19 Vaccine (3 - Booster for Lisa series) [facility] Start: 02-17-2022 Subsequent hospital visit by physician 02/17/2022 Hospital Encounter Jada Vargas MD [address] [facility] [address] [place] [address] [facility] Start: 01-14-2022 Microalbumin measurement, urine, quantitative Urine Microalbumin [facility] Start: 01-10-2022 End: 01-10-2022 Patient encounter procedure 01/10/2022 Appointment Radiology Estrada Garcia MD [address] [place] [address] [facility] [address] Scan Start: 10-08-2021 End: 10-08-2021 Patient encounter procedure 10/08/2021 Office Visit Otolaryngology LobbyistChepe ruffin CNP [address] [place] [address] [facility] Start: 08-16-2021 End: 08-16-2021 Patient encounter procedure 08/16/2021 Appointment Radiology Jonathan Rutherford CNP [address] [place] [address] [facility] Mammography Start: 08-04-2021 End: 08-04-2021 Patient encounter procedure 08/04/2021 Office Visit Otolaryngology Chepe Yin CNP [address] [facility] [address] [place] [address] [facility] Start: 08-03-2021 End: 08-03-2021 Patient encounter procedure 08/03/2021 Office Visit General Surgery Jada Vargas MD [address] [facility] [address] [place] [address] [facility] Start: 08-02-2021 End: 08-02-2021 Patient encounter procedure 08/02/2021 Appointment Radiology Jonathan Rutherford, [facility]TER [address] [place] [address] [facility] Mammography Start: 07-07-2021 Influenza vaccination Sequential Influenza Vaccine (#1) [facility] Start: 06-08-2021 End: 06-08-2021 Patient encounter procedure 06/08/2021 Appointment Radiology [facility] Mammography Start: 04-26-2021 [email or web address], Provider: River Sweeney, Status: Pen, Time: 4:15 PM [email or web address], Provider: River Sweeney, Status: Pen, Time: 4:[address] Work Phone: Start: 04-23-2021 [email or web address], Provider: Elana Westbrook, Status: Pen, Time: 3:45 PM [email or web address], Provider: Elana Westbrook, Status: Pen, Time: 3:45 PM [facility] Work Phone: Start: 04-21-2021 [email or web address], Provider: Eli Alexander, Status: Pen, Time: 4:15 PM [email or web address], Provider: Eli Alexander, Status: Pen, Time: 4:15 PM [facility] Work Phone: Start: 2021 PTRECHADUL, Provider: Elana Westbrook, Status: Pen, Time: 4:00 PM PTRECHADWICHO, Provider: Elana Westbrook, Status: Pen, Time: 4:[address] [facility]: Start: 04-15-2021 End: 04-14-2022 Basic metabolic 1998 panel - Serum or Plasma Chem 7 Lab Routine Expected: 04/15/2021, Expires: 04/14/2022 [facility] Comment on above: Expected: 04/15/2021, Expires: 2 Start: 04-15-2021 End: 04-14-2022 Creatine kinase [Enzymatic activity/volume] in Serum or Plasma CPK NO MB Lab Routine Expected: 04/15/2021, Expires: 04/14/2022 [facility] Comment on above: Expected: 04/15/2021, Expires: 2 Start: 04-14-2021 [email or web address], Provider: DavidFebruary, Status: Pen, Time: 4:30 PM PTFUADULT4, Provider: DavidFebruary, Status: Pen, Time: 4:[address] [facility] Work [facility]: Start: 04-12-2021 PTFUADULT4, Provider: DavidFebruary, Status: Pen, Time: 4:30 PM PTFUADULT4, Provider: DavidFebruary, Status: Pen, Time: 4:[address] Work Phone: Start: 04-09-2021 PTFUADULT4, Provider: Eli Alexander, Status: Pen, Time: 4:15 PM PTFUADULT4, Provider: Eli Alexander, Status: Pen, Time: 4:[address] [facility] Work Phone: Start: 11-24-2020 End: 11-24-2020 Procedure visit 11/24/2020 Procedure visit Neurology Rusty Dozier MD [address] [address] [phone] Eugenia Conte MD [address] [facility] [address] [place] [address] [phone] [facility] Start: 10-12-2020 End: 10-12-2020 Procedure visit 10/12/2020 Procedure visit Neurology Eugenia Conte MD [address] [address] [phone] [facility] Start: 07-07-2020 Influenza vaccination given Sequential Influenza Vacci ne (#1) [facility] Start: 07-07-2019 Influenza vaccination INFLUENZA VACCINE (Season Ended) [facility] Start: 07-07-2019 Influenza vaccination given [facility] Start: 04-19-2019 End: 04-19-2019 Appointment 04/19/2019 Appointment Cardiology Whitley Martinez MD [address] [place] [address] [phone] [facility] Start: 04-10-2019 End: 04-10-2019 Appointment 04/10/2019 Appointment Radiology Rusty Dozier MD [address] [place] [address] [phone] [facility] Start: 01-30-2019 Pneumococcal Vaccine: Age 50+ (2 of 2 - PCV) Pneumococcal Vaccine: Age 50+ (2 of 2 - PCV) [facility] Start: 01-30-2019 Pneumococcal Vaccine: Age 65+ (2 - PCV) Pneumococcal Vaccine: Age 65+ (2 - PCV) [facility] Start: 01-30-2019 Pneumococcal Vaccine: Age 65+ (2 of 2 - PCV) Pneumococcal Vaccine: Age 65+ (2 of 2 - PCV) [facility] Start: 01-30-2019 Pneumococcal Vaccine: Ped or At-Risk (2 - PCV) Pneumococcal Vaccine: Ped or At-Risk (2 - PCV) [facility] Start: 01-30-2019 Pneumococcal Vaccine: Ped or At-Risk (2 of 4 - PCV13) Pneumococcal Vaccine: Ped or At-Risk (2 of 4 - PCV13) [facility] Start: 07-07-2018 Influenza vaccination SEQUENTIAL INFLUENZA VACCINE (#1) [facility] Start: 2018 HEPATITIS B VACCINES (1 of 3 - Risk 3-dose series) HEPATITIS B VACCINES (1 of 3 - Risk 3-dose series) [facility] Start: 2018 Respiratory Syncytial Virus Immunization: Risk, 60-74 Risk, or 75+ (1 - Risk 60-74 years 1-dose series) Respiratory Syncytial Virus Immunization: Risk, 60-74 Risk, or 75+ (1 - Risk 60-74 years 1-dose series) [facility] Start: 2018 RSV Immunization (1 - Risk 60-74 years 1-dose series) RSV Immunization (1 - Risk 60-74 years 1-dose series) [facility] Start: 10-04-2017 Ambulatory 10/04/2017 Office Visit Sports Medicine Vaibhav Naranjo MD [address] [facility] [address] [place] [address] [phone] [facility] [place] Start: 07-07-2017 Influenza vaccination SEQUENTIAL INFLUENZA VACCINE (#1) [facility] Work Phone: Start: 07-07-2017 SEQUENTIAL INFLUENZA VACCINE (#1) SEQUENTIAL INFLUENZA VACCINE (#1) [facility] Work Phone: Start: 07-05-2017 Protein mass conc Mammogram [facility] Start: 07-05-2017 Screening for malignant neoplasm of breast Mammogram [facility] Start: 07-05-2017 Screening mammography Mammogram [facility] Start: 07-04-2017 Ambulatory [facility] Start: 2008 Administration of herpes zoster vaccine Zoster Vaccines (1 of 2) [facility] Start: 2008 Pneumococcal Vaccine: 50+ Years (1 of 1 - PCV) Pneumococcal Vaccine: 50+ Years (1 of 1 - PCV) [facility] Start: 2008 Protein mass conc COLON CANCER SCREENING DISCUSSION [facility] Start: 2008 Screening for malignant neoplasm of colon [facility] Start: 2008 Zoster vaccine hzv live for subcutaneous use ZOSTER (SHINGLES) VACCINE (1 of 2) [facility] Start: 2008 ZOSTER VACCINES (1 of 2) ZOSTER VACCINES (1 of 2) [facility] Start: 1998 Fasting lipid profile LIPID SCREENING [facility] Start: 1998 Protein mass conc MAMMOGRAM SCREENING DISCUSSION [facility] Start: 1979 Screening for malignant neoplasm of cervix PAP SMEAR DISCUSSION [facility] Start: 1977 Administration of herpes zoster vaccine Zoster Vaccines (1 of 2) [facility] Start: 1977 Shingles Vaccine (1 of 2) Shingles Vaccine (1 of 2) [facility] Start: 1977 Third diphtheria, tetanus and acellular pertussis (DTaP) vaccination TDAP (ADULT) [facility] Start: 1976 Hepatitis C antibody, confirmatory test Hepatitis C Screening [facility] Start: 1976 Hepatitis C screening Hepatitis C Screening [facility] Start: 1976 Tetanus vaccination TETANUS [facility] Start: 1974 COVID-19 Vaccine (1 of 2) COVID-19 Vaccine (1 of 2) [facility] Start: 1973 HIV screening HIV Screening [facility] Start: 1971 HIV screening HIV SCREENING DISCUSSION [facility] Start: 1971 Varicella Vaccine (1 of 2 - 13+ 2-dose series) Varicella Vaccine (1 of 2 - 13+ 2-dose series) [facility] Start: 1970 Adolescent depression screening assessment Depression Screening (PHQ9) [facility] Start: 1970 COVID-19 Vaccine (1) COVID-19 Vaccine (1) [facility] Start: 1970 Depression screening using PHQ-9 (Patient Health Questionnaire 9) score [facility] Start: 1968 Diabetic foot examination [facility] Start: 1968 Glaucoma screening [facility] Start: 1968 Ophthalmic examination and evaluation Ophthalmology Exam [facility] Start: 1968 Urine screening for protein Urine (micro)albumin/creatinine ratio - Kidney Disease [facility] Start: 1968 Urine, microalbumin URINE MICROALBUMIN [facility] Start: 1965 DTaP/Tdap/Td Vaccine (1 - Tdap) DTaP/Tdap/Td Vaccine (1 - Tdap) [facility] Start: 1965 DTaP/Tdap/Td VACCINES (1 - Tdap) DTaP/Tdap/Td VACCINES (1 - Tdap) [facility] Start: 1964 Pneumococcal vaccination [facility] Start: 1964 Pneumococcal Vaccine: 65+ Years (1 - PCV) Pneumococcal Vaccine: 65+ Years (1 - PCV) [facility] Start: 1964 Pneumococcal Vaccine: 65+ Years (1 of 2 - PCV) Pneumococcal Vaccine: 65+ Years (1 of 2 - PCV) [facility] Start: 1964 Pneumococcal Vaccine: Ped or At-Risk (1 of 4 - PCV13) Pneumococcal Vaccine: Ped or At-Risk (1 of 4 - PCV13) [facility] Start: 1961 History and physical examination, annual for health maintenance Wellness Visit [facility] Start: 1961 Medicare Wellness Visit Medicare Wellness Visit [facility] Start: 1959 MMR Vaccine (1 of 1 - Standard series) MMR Vaccine (1 of 1 - Standard series) [facility] Start: 1959 MMR VACCINES (1 of 1 - Standard series) MMR VACCINES (1 of 1 - Standard series) [facility] Start: 1959 VARICELLA VACCINES (1 of 2 - 2-dose childhood series) VARICELLA VACCINES (1 of 2 - 2-dose childhood series) [facility] Start: 1958 COVID-19 Vaccine (#1) COVID-19 Vaccine (#1) [facility] Start: 1958 Depression screening using PHQ-9 (Patient Health Questionnaire 9) score Depression Screening (PHQ9) [facility] Start: 1958 Hemoglobin A1c measurement A1C [facility] Start: 1958 Hepatitis C antibody, confirmatory test [facility] Start: 1958 Screening for malignant neoplasm of colon [facility] Start: 1958 Screening for malignant neoplasm of lung Low-dose CT Lung Cancer Screen [facility] Start: 1958 Screening for osteoporosis Dexa Scan [facility] Start: 1958 Thyrotropin Qn TSH [facility] Start: 1958 Colonoscopy COLONOSCOPY [facility] Work Phone: Start: 1958 Cytopathology procedure, preparation of smear, genital source PAP SMEAR [facility] Work Phone: Start: 1958 HEPATITIS C SCREENING HEPATITIS C SCREENING [facility] Work Phone: Start: 1958 Screening colonoscopy COLONOSCOPY [facility] Work Phone: Start: 1958 End: 1958 Screening for malignant neoplasm of cervix PAP SMEAR [facility] Start: 1958 TETANUS EVERY 10 YR TETANUS EVERY 10 YR [facility] Work Phone: Start: 1958 End: 1958 Tetanus vaccination [facility] End: 03-08-2023 12 lead ECG ECG 12 Lead ECG Routine Rectal prolapse Preoperative testing 1 Occurrences starting 03/08/2022 until 03/08/2023 [facility] Comment on above: 1 Occurrences starting 03/08/2022 until 03/08/2023 End: 09-16-2028 12 lead ECG ECG 12 Lead ECG Routine NSVT (nonsustained ventricular tachycardia) ([facility]) 15 Occurrences starting 09/16/2024 until 09/16/2028 [facility] Work Phone: Comment on above: 15 Occurrences starting 09/16/2024 until 09/16/2028 12 lead ECG ECG 12 Lead ECG Routine NSVT (nonsustained ventricular tachycardia) ([facility]) 09/18/2024 1:09 PM EST [facility] 6-minute walk test 6 minute walk PFT Routine Chronic obstructive pulmonary disease, unspecified COPD type ([facility]) 12/30/2021 12:00 PM EST [facility] Acylcarnitine panel - Serum or Plasma ACYLCARNITINES, QUANTITATIVE, PLASMA & SERUM Lab Routine CPT2 deficiency 07/23/2025 3:46 PM EDT [facility] Alanine aminotransfe rase [Enzymatic activity/volume] in Serum or Plasma [facility] Albumin [Mass/volume ] in Serum or Plasma [facility] Albumin [Moles/volum e] in Serum or Plasma [facility] Albumin/Globulin ratio [facility] Alkaline phosphatase [Enzymatic activity/volume] in Serum or Plasma [facility] ALTEMEIER PROCEDURE ALTEMEIER TX OCEDURE Rectal prolapse [facility] Ambulatory ECG Event Monitor Amb ulatory ECG Event Monitor Cardiac Services Routine Ventricular tachycardia (HCC) Palpitations NSVT (nonsustained ventricular tachycardia) (HCC) Ordered: 09/18/2024 [facility] Comment on above: Ordered: 09/18/2024 Ambulatory ECG Event Monitor Amb ulatory ECG Event Monitor Cardiac Services Routine Ventricular tachycardia (HCC) Palpitations NSVT (nonsustained ventricular tachycardia) (HCC) Ordered: 10/23/2024 [facility] Work Phone: Comment on above: Ordered: 10/23/2024 Anion gap in Serum or Plasma [facility] Anion gap measurement [facility] Ankle brachial pressure index [facility] Work Phone: Ankle brachial pressure index [facility] Aspartate aminotrans ferase [Enzymatic activity/volume] in Serum or Plasma [facility] Bacteria identified in Blood by Culture Blood Culture Aerobic/Anaerobic Microbiology Routine 09/02/2024 11:39 AM EDT [facility] Work Phone: Bacteria identified in Blood by Culture [facility] Work Phone: Bacteria identified in Blood by Culture Blood Culture Aerobic/Anaerobic Microbiology ABDELRAHMAN 02/13/2025 5:53 PM EDT [facility] Work Phone: Bilirubin, total measurement [facility] BUN/Creatinine ratio [facility] BUN/Creatinine ratio [facility] Calcium [Mass/volume ] in Serum or Plasma [facility] Calcium [Mass/volume ] in Serum or Plasma [facility] Carbon dioxide, tota l [Moles/volume] in Central venous blood [facility] Carbon dioxide, tota l [Moles/volume] in Serum or Plasma [facility] End: 03-08-2023 CBC panel - Blood by Automated count CBC Lab Routine Rectal prolapse Preoperative testing 1 Occurrences starting 03/08/2022 until 03/08/2023 [facility] Work Phone: Comment on above: 1 Occurrences starting 03/08/2022 until 03/08/2023 Chloride [Moles/volu me] in Serum or Plasma [facility] Colonoscopy COLONOSCOPY Hx o f colonic polyps [facility] End: 03-08-2023 Comprehensive metabolic 2000 panel - Serum or Plasma Comprehensive metabolic panel Lab Routine Rectal prolapse Preoperative testing 1 Occurrences starting 03/08/2022 until 03/08/2023 [facility] Comment on above: 1 Occurrences starting 03/08/2022 until 03/08/2023 Creatinine [Mass/vol ume] in Serum or Plasma [facility] Creatinine [Moles/vo lume] in Serum or Plasma [facility] CT Chest [facility] CT Chest [facility] DXA Bone [Mass/Area] Bone density [facility] End: 04-05-2020 Echocardiography Echocardiogram complete Echocardiography Routine Abnormal electrocardiogram Cardiomyopathy, unspecified type (HCC) Hypertension, unspecified type 1 Occurrences starting 04/05/2019 until 04/05/2020 [facility] Comment on above: 1 Occurrences starting 04/05/2019 until 04/05/2020 Elastase, pancreatic (el-1), fecal; quantitative [facility] Electrophoresis: [id number] [facility] Electrophoresis: tanja ma globulin [facility] Exercise tolerance test [facility] Globulin measurement [facility] Glucose [Mass/volume ] in Serum or Plasma [facility] Glucose [Mass/volume ] in Serum or Plasma [facility] IgA [Mass/volume] in Serum or Plasma [facility] IgG [Mass/volume] in Serum or Plasma [facility] IgM [Mass/volume] in Serum or Plasma [facility] End: 03-08-2023 INR in Platelet poor plasma by Coagulation assay PT/INR Lab Routine Rectal prolapse Preoperative testing Abdominal pain, unspecified abdominal location 1 Occurrences starting 03/08/2022 until 03/08/2023 [facility] Comment on above: 1 Occurrences starting 03/08/2022 until 03/08/2023 [place]/lambda light c bud ratio [facility] Work Phone: [place]/lambda light c bud ratio [facility] Lambda light chains. free [Mass/volume] in Serum or Plasma [facility] Work Phone: Lambda light chains. free [Mass/volume] in Serum or Plasma [facility] End: 12-30-2022 Low dose computed tomography of thorax CT Lung Cancer Screening Imaging Routine Screening for lung cancer Chronic obstructive pulmonary disease, unspecified COPD type (HCC) 1 Occurrences starting 12/30/2021 until 12/30/2022 [facility] Work Phone: Comment on above: 1 Occurrences starting 12/30/2021 until 12/30/2022 Magnesium measurement [facility] Measurement of immun oglobulin A in serum specimen [facility] Measurement of renal function [facility] Measurement of renal function [facility] Measurement of respi ratory function [facility] MG Breast - bilatera l Screening [facility] MR Cervical spine [facility] Work Phone: MR Cervical spine [facility] MR Cervical spine [facility] End: 09-18-2025 MR Heart WO and W contrast IV MR Cardiac Morphology Wi th And Without Contrast Without velocity flow Imaging Routine Ventricular tachycardia (HCC) Palpitations NSVT (nonsustained ventricular tachycardia) ([facility]) 1 Occurrences starting 09/18/2024 until 09/18/2025 [facility] Work Phone: Comment on above: 1 Occurrences starting 09/18/2024 until 09/18/2025 End: 04-10-2019 MR Hip Right Without Contrast MR Hip Right Without Contrast Imaging Routine Right hip pain Once for 1 Occurrences starting 04/10/2019 until 04/10/2019 [facility] Comment on above: Once for 1 Occurrences starting 04/10/20 until 04/10/2019 MR Hip Right Without Contrast MR Hip Right Without Contrast Imaging Routine Right hip pain 04/10/2019 1:54 PM EDT [facility] MR Lower Extremity Joint [facility] MRI of cervical spine MRI SPINE CERVICAL WITHOUT CONTRAST Imaging Routine Cervical spine disease Ordered: 08/24/2016 [facility] Comment on above: Ordered: 08/24/2016 MRI of lower extremity MRI LONG BONE NEUROGRAPHY LOWER EXTREMITY LEFT Imaging Routine Myopathy Ordered: 08/24/2016 [facility] Comment on above: Ordered: 08/24/2016 MRI of lumbar spine MRI SPINE ANIL MBAR WITHOUT CONTRAST Imaging Routine Osteoarthritis of spine with radiculopathy, lumbar region Ordered: 08/24/2016 [facility] Comment on above: Ordered: 08/24/2016 Myoglobin [Presence] in Urine My oglobin, Urine Lab STAT 04/14/2021 4:26 PM EDT [facility] Patient Education ED Neck Pain E D Neck Spasm, No Trauma [facility] Work Phone: Patient referral [facility] Work Phone: Polysomnography [facility] Potassium [Moles/vol ume] in Serum or Plasma [facility] Potassium measurement [facility] Procedure on tissue specimen [facility] Work Phone: Comment on above: Release Upon Ordering for 1 Occurrences starting 03/30/2022, 1 completed Protein electrophore sis panel - Serum or Plasma [facility] Serum chloride measurement [facility] Sodium [Moles/volume ] in Serum or Plasma [facility] Sodium measurement [facility] End: 07-08-2023 Standard chest X-ray XR Chest AP/PA and LAT Imaging Routine COPD exacerbation (HCC) 1 Occurrences starting 07/08/2022 until 07/08/2023 [facility] Work Phone: Comment on above: 1 Occurrences starting 07/08/2022 until 07/08/2023 Thiamine measurement [facility] Work Phone: Thyroid stimulating hormone measurement [facility] Tissue transglutamin ase IgA Ab [Units/volume] in Serum [facility] Total protein measurement [facility] Ultrasound Duplex Ve nous Leg RIGHT Ultrasound Duplex Venous Leg RIGHT Vascular Ultrasound ABDELRAHMAN 11/02/2020 3:21 PM EST [facility] Urea nitrogen [Mass/ volume] in Serum or Plasma [facility] Urea nitrogen [Mass/ volume] in Serum or Plasma [facility] Urine kappa light ch ain measurement [facility] Work Phone: Urine kappa light ch ain measurement [facility] US Thyroid gland [facility] Walking distance 6 minutes [facility] End: 10-06-2024 XR Hand - left 2 Views XR Hand Left 2 Views Imaging Routine Pain 1 Occurrences starting 10/06/2023 until 10/06/2024 [facility] Work Phone: Comment on above: 1 Occurrences starting 10/06/2023 until 10/06/2024 End: 09-02-2025 XR Knee - bilateral AP and Lateral W standing XR Knees Standing Bilateral AP/ LAT Imaging Routine Pain 1 Occurrences starting 09/02/2024 until 09/02/2025 [facility] Work Phone: Comment on above: 1 Occurrences starting 09/02/2024 until 09/02/2025 [facility] Immunizations Immunization Date Immunization Notes Care Provider [facility] 09-03-2024 influenza, high dose seasonal, preservative-free Ramírez Cunningham MD Work Phone: [facility] 09-03-2024 influenza virus vacc ine, unspecified formulation Meliza Rust [facility] 10-17-2023 Covid (Spikevax) Dr. Jennifer Gordon Work Phone: [facility] 10-17-2023 influenza, injectabl e, quadrivalent, preservative free Dr. Jennifer Gordon Work Phone: [facility] 10-17-2023 influenza virus vacc ine, unspecified formulation Rivas Jules MD Work Phone: [facility] 10-14-2022 Covid Moderna Bivale nt Booster Dr. Jennifer Gordon Work Phone: [facility] 10-14-2022 Influenza, high dose seasonal Dr. Jennifer Gordon MD Work Phone: [facility] 10-14-2022 influenza, high dose seasonal, preservative-free [facility] Jonathan Rutherford [facility] Work Phone: [facility] 10-14-2022 influenza, injectabl e, quadrivalent, preservative free Dr. Jennifer Gordon Work Phone: [facility] 10-14-2022 influenza virus vacc ine, unspecified formulation Provider System [facility] 10-27-2021 Covid (Moderna) [facility] Jonathan Gallegoer [facility] Work Phone: [facility] 10-13-2021 influenza, injectabl e, quadrivalent, preservative free Dr. Jennifer Gordon Work Phone: [facility] 10-13-2021 influenza, seasonal, injectable [facility] Jonathan Helvaleriaer [facility] Work Phone: [facility] 01-08-2021 Covid ([employer]ie [employer]) [facility] Jonathan Hellinger [facility] Work Phone: [facility] 08-20-2020 influenza, injectabl e, quadrivalent, preservative free Dr. Jennifer Gordon Work Phone: [facility] 08-20-2020 influenza, seasonal, injectable [facility] Jonathan Hellinger [facility] Work Phone: [facility] 08-13-2019 Influenza, high dose seasonal Dr. Jennifer Gordon MD Work Phone: [facility] 08-13-2019 influenza, high dose seasonal, preservative-free [facility] Jonathan Gallegoer [facility] Work Phone: [facility] 09-17-2018 influenza, injectabl e, quadrivalent, preservative free Dr. Jennifer Gordon Work Phone: [facility] 09-17-2018 influenza, seasonal, injectable [facility] Jonathan Gallegoer [facility] Work Phone: [facility] 01-30-2018 pneumococcal polysaccharide vaccine, 23 valent [facility] Jonathan Gallegoer [facility] Work Phone: [facility] 09-18-2017 influenza, injectabl e, quadrivalent, preservative free Dr. Jennifer Gordon Work Phone: [facility] 09-18-2017 influenza, seasonal, injectable [facility] Jonathan Gallegoer [facility] Work Phone: [facility] 09-18-2017 influenza, seasonal, injectable, preservative free [facility] 09-18-2017 Seasonal, quadrivale nt, recombinant, injectable influenza vaccine, preservative free Dr. Jennifer Gordon Work Phone: [facility] 09-18-2017 influenza virus vacc ine, unspecified formulation [facility] 11-14-2016 influenza, injectabl e, quadrivalent, preservative free Dr. Jennifer Gordon Work Phone: [facility] 11-14-2016 influenza, seasonal, injectable [facility] Jonathan Gallegoer [facility] Work Phone: [facility] 11-14-2016 influenza, seasonal, injectable, preservative free [facility] 11-14-2016 Seasonal, quadrivale nt, recombinant, injectable influenza vaccine, preservative free Dr. Jennifer Gordon Work Phone: [facility] 01-18-2016 influenza, injectabl e, quadrivalent, preservative free Dr. Jennifer Gordon Work Phone: [facility] 01-18-2016 influenza, seasonal, injectable [facility] Jonathan Rutherford [facility] Work Phone: [facility] 01-18-2016 influenza, seasonal, injectable, preservative free Dr. Jennifer Gordon MD Work Phone: [facility] 01-18-2016 Seasonal, quadrivale nt, recombinant, injectable influenza vaccine, preservative free Dr. Jennifer Gordon Work Phone: [facility] Payers Date Payer Category Payer Self-pay [id number] 2020 Medicaid [id number] [id number] 2020 Medicare Managed Car e (unspecified) [facility] DUAL COMPLETE (O SNP) [id number]. [id number] 2020 Private Health Insurance [id number] 2020 Unknown [id number] 2019 Medicaid 1.2.840.478817. 1.13.385. 2.7.3.333255.315 2019 Medicaid [id number] 2.16.840.1.404025.3.249. 13 2016 Medicaid [id number] 2.16.840.1.947873.3.249. 13 2016 Medicaid MEDICAID [facility] [id number] 2016-Present [id number] 1.2.840.995760.1.13.385. 2.7.3.522637.315 2013 Medicare xxxxxxxxx 2.16.840.1.029875.3.249. 13 2013 Medicare HUMANA MANAGED M EDICARE HUMANA MCR ADVANTAGE CHOICE PPO [id number] 2013-Present [id number] 1.2.840.995498.1.13.385. 2.7.3.442310.315 2009 Medicare 1.2.840.163200. 1.13.385. 2.7.3.701196.315 2009 Medicare [id number] 1960 Unknown [id number] 2.16.840.1.625321.3.579. 2.356 1958 Unknown [id number] 2.16.840.1.677924.3.579. 2.356 1958 Unknown [id number] 2.16.840.1.802297.3.579. 2.356 1958 Unknown [id number] 2.16.840.1.889051.3.579. 2.903 1958 Unknown [id number] 2.16.840.1.864004.3.579. 2.903 1958 Unknown [id number] 2.16.840.1.516630.3.579. 2.903 1958 Unknown [id number] 2.16.840.1.926127.3.579. 2.903 1958 Unknown [id number] 2.16.840.1.576494.3.579. 2.903 1958 Unknown [id number] 2.16.840.1.733696.3.579. 2.430 1958 Unknown [id number] 2.16.840.1.081883.3.579. 2.430 1958 Unknown [id number] 2.16.840.1.994750.3.579. 2.430 1958 Unknown [id number] 2.16.840.1.797091.3.579. 2.430 1958 Unknown [id number] 2.16.840.1.083386.3.579. 2. 1958 Unknown [id number] 2.16.840.1.678061.3.579. 2.3 1958 Unknown [id number] 2.840.1.070575.3.579. 2. 1958 Unknown [id number] 2.16840.1.908916.3.579. 2.3 1958 Unknown [id number] 2.16840.1.844041.3.579. 2.3 1958 Unknown [id number] 2.16.840.1.759461.3.579. 2.903 Medicare [id number] 2.16840.1.584084.3.249. 13 Medicaid [id number] Unknown Unknown [id number] 2.16.840.1.248869.3.579. 2.462 Unknown [id number] 2.16.840.1.647419.3.579. 2.462 Unknown [id number] 2.16.840.1.184524.3.579. 2.462 Unknown [id number] 2.16.840.1.377113.3.579. 2.462 Unknown [id number] 2.16.840.1.397047.3.579. 2.462 Unknown [id number] 2.16.840.1.464955.3.579. 2.462 Unknown [id number] 2.16.840.1.907600.3.579. 2.462 Unknown [id number] 2.16.840.1.912115.3.579. 2.462 Unknown [id number] 2.16840.1.642386.3.579. 2.462 Unknown [id number] 2.16840.1.786706.3.579. 2.462 Unknown [id number] 2.840.1.076458.3.579. 2.462 Unknown [id number] 2.840.1.371552.3.579. 2.462 Unknown [id number] 2.840.1.684616.3.579. 2.462 Unknown [id number] 2.840.1.230151.3.579. 2.462 Unknown [id number] 2.840.1.017379.3.579. 2.462 Unknown [id number] 2.840.1.716137.3.579. 2.462 Unknown [id number] 2.840.1.388063.3.579. 2.462 Unknown [id number] 2.840.1.168794.3.579. 2.462 Unknown [id number] 2.840.1.351469.3.579. 2.462 Unknown [id number] 2.16840.1.295133.3.579. 2.462 Unknown [id number] 2.16840.1.294799.3.579. 2.462 Unknown [id number] 2.16840.1.155551.3.579. 2.462 Unknown [id number] 2.16840.1.515108.3.579. 2.462 Unknown [id number] 2.16.840.1.799561.3.579. 2.462 Unknown [id number] 2.16.840.1.802683.3.579. 2.462 Unknown [id number] 2.16.840.1.610506.3.579. 2.462 Unknown [id number] 2.16.840.1.885617.3.579. 2.462 Unknown [id number] 2.16.840.1.784333.3.579. 2.462 Unknown [id number] 2.16.840.1.993987.3.579. 2.462 Unknown [id number] 2.16.840.1.018947.3.579. 2.462 Unknown [id number] 2.16.840.1.017533.3.579. 2.462 Unknown [id number] 2.16.840.1.002458.3.579. 2.462 Unknown [id number] 2.16.840.1.556669.3.579. 2.462 Social History Date Type Detail Facility Start: 11-14-2016 End: 07-04-2017 Tobacco smoking status AZIS Former smoker [facility] Work Phone: Start: 07-10-1993 End: 07-10-2013 History of tobacco use Current smoker [facility] Work Phone: Start: 07-04-2017 End: 06-03-2024 Cigarettes smoked current (pack per day) - Reported [facility] Start: 1960 Sex Assigned At Not on file [facility] Work Phone: Start: 07-10-1993 End: 07-10-2013 History of tobacco use Cigarette Smoker [facility] Start: 05-07-2019 End: 07-23-2025 Alcohol intake Current non-drinker of alcohol (finding) [facility] Start: 11-14-2016 End: 09-15-2020 Tobacco use and exposure Never used [facility] Start: 12-17-2021 End: 07-19-2022 Exposure to SARS-CoV-2 (event) Not sure [facility] Start: 10-06-2022 End: 02-27-2024 Tobacco smoking status NHIS Unknown if ever smoked [facility] Start: 1960 Sex Assigned At Female [facility] Start: 02-13-2023 History SDOH Financial 2 [facility] Start: 02-13-2023 History SDOH Food Worry 1 [facility] Start: 02-13-2023 History SDOH Food Scarcity 98 [facility] Start: 11-10-2022 End: 06-03-2024 Tobacco use panel [facility] Start: 10-14-2016 Adult Depression Screening Assessment 0 [facility] Start: 05-18-2018 Gender identity Identifies as female gender (finding) [facility] Start: 05-07-2019 Sexual orientation Heterosexual (finding) [facility] How hard is it for y ou to pay for the very basics like food, housing, medical care, and heating Hard [facility] (I/We) worried kaylee er (my/our) food would run out before (I/we) got money to buy more. Never true [facility] The food that (I/we) bought just didn't last, and (I/we) didn't have money to get more. DK or Refused [facility] In the past 12 month s, was there a time when you were not able to pay the mortgage or rent on time? No [facility] In the past 12 month s, was there a time when you were not able to pay the mortgage or rent on time? Yes [facility] How hard is it for y ou to pay for the very basics like food, housing, medical care, and heating Somewhat hard [facility] Start: 01-23-2025 End: 02-05-2025 Sex Female (finding) [facility] Goals Date Patient Goal Desired Activity /State Functional Status Date Assessment Result Facility 07-20-2025 Functional status Ambulates [facility] Work Phone: Mental Status Date Assessment Result Facility 07-20-2025 Cognitive function Voice/Name [facility] Work Phone: 07-17-2025 Cognitive function Level Of Cons ciousness Awake;Alert;Appropriate;Follow s Commands [facility] Work Phone: 01-01-2025 Cognitive function Level Of Cons ciousness Awake;Alert;Appropriate;Follow s Commands [facility] Work Phone: Clinical Notes 03-15-2021 to [...] reach her to setup formula delivery. FWD [phone] is Ali from [facility] 08-28-2025 Miscellaneous Notes Called Radha to let her know [facility] is trying to reach her to setup formula delivery. FWD [phone] is Ali from [facility] documented in this encounter [facility] 08-27-2025 Telephone encounter Note Reached out to Radha because [facility] is trying to get in touch with her. No Answer left VM with RD callback number [facility] 08-27-2025 Miscellaneous Notes Reached out to Radha because [facility] is trying to get in touch with her. No Answer left VM with RD callback number documented in this encounter [facility] 08-07-2025 Telephone encounter Note Pharmacy called Eileen Badillo wanted to see if the patient was goint to put back on Dojolvi. [facility] 08-07-2025 Miscellaneous Notes Pharmacy called Eileen Badillo wanted to see if the patient was goint to put back on Dojolvi. documented in this encounter [facility] 08-05-2025 History of Presen t illness Narrative Attached media from the original note were not included. CMN and clinic notes securely faxed to [facility] @ documented in this encounter [facility] 07-23-2025 History of Presen t illness Narrative Nutrition Follow up Assessment: Radha Shafer is a 65 year old female with Patient Active Problem List Diagnosis Muscle pain Muscle weakness (generalized) CPT2 deficiency Chronic renal failure syndrome, stage 3 (moderate) COPD (chronic obstructive pulmonary disease) Hypertension Depression Percentiles from [facility]-Normal growth charts. Weight: 99.6 kg [...] developed and its performance characteristics determined by [facility]. It has not been cleared or approved [...] 0 calories 0 protein Estimated energy needs: 5898-4374 kcals/day (based on EER for age and [...] or concerns call Garland Kumar RD, ZAC [phone] Miguel Hyman. Follow-Up: Recommend Radhamary ellen Alexanderrayne return to [facility] per MD recommendations. Total Patient Care Time: 30 minutes in direct patient care; [address], ZAC [facility] [address] [facility] [address] [place] [phone] DATE (TIME): 07/23/2025 PATIENT: Radha Shafer : 1960 PARENTS: fathers name not listed mothers name not listed Radha Shafer [address] [facility] [address] REFERRING PROVIDER: No referring provider defined for this encounter. PRIMARY-CARE PROVIDER: Andre Martinez MD [address] [place] [address] Impression/Recommendations: Radha Shafer is a 65 year [...] PCP even if it requires driving to [place]. I will have to investigate possible options [...] Please see additional note from our metabolic associate spa director, Garland Kumar RD, LD, for detailed dietary [...] her CPT2 and muscle issues worse. Her pilot is also concerned. She feels her fatigue sets in after only 5-10 minutes. She is now on oxygen but did get off CPAP overnight. They are reporting weight loss and poor eating habits. Additional history was obtained from the available records. The patient was seen along with our metabolic associate spa director, Garland Kumar RD, LD. Radha is doing [...] developed and its performance characteristics determined by [facility]. It has not been cleared [...] tests, or procedures Referring/communicating with other health home health caregiver Independently interpreting results and communicating results to the patient/family/caregiver Care-coordination Thank you for including us in the care of this patient. Emmett Hyman MD documented in this encounter [facility] 07-23-2025 Instructions Emmett Hyman MD [...] in 1 year. documented in this encounter [facility] 07-20-2025 Discharge summary Note Date/Time July 20, 2025 11:27am [facility] Medical Records Department [address] [place] [address] Discharge Summary 07/20/25 0907 MR#: [id number] Acct: [id number] Name: RADHA SHAFER Rep #:[id number] : 1960 65 From: Vincent Perdomo PCP: Dr. Jennifer Gordon MD Status:ADM IN Location: [place] [address] Providers Date of Admission: 07/17/25 Date of [...] in her 30s ? She sees a direct mail marketer at [facility] ? 07/20: She completed D10 half-normal [...] (2,000 unit) capsule 50 mcg PO DAILY /13/23 ferrous sulfate 325 mg (65 mg iron) [...] cholesterol #90 tabs 07/17/25 OXYGEN - Supplemental ([facility] INFORM[facility] USE ONLY) 07/18/25 Physical Exam Narrative Seen and examined. Patient stated her myalgia/muscle pain has resolved. She follows direct mail marketer forCPT 2 deficiency in [facility] [place]. No diarrhea. No chest pain or shortness [...] Neut % (Auto) 67.9, Lymph % (Auto) 21.1,Wirt % (Auto) 7.2, Eos % (Auto) 2.7, [...] PRN (Reason: wheezing) (DME) OXYGEN - Supplemental ([facility] INFORM[facility] USE ONLY) Gas See Rx Instructions [...] Self Care Charges/Coding Visit Charges Inpatient E&M: 10743 Disch Hosp >30min 07/20/25 1127 <Electronically signed by Vincent Hood MD> Cosigner Signature (if applicable): CC: Dr. Jennifer Gordon MD; Dr. Vincent Hood MD~ Signed [facility] Work Phone: 1(546) 908-341009-14-2025 Discharge summary Author Vincent Hood [facility] Note Date/Time July 20, 2025 11:26am [facility] Medical Records Department [address] [place] [address] Instructions for Home/Discharge Instructions 07/20/25 0901 MR#: [id number] Acct: [id number] Name: RADHA SHAFER Rep #:[id number] : [...] PRN (Reason: wheezing) (DME) OXYGEN - Supplemental ([facility]FORM[facility] USE ONLY) Gas See Rx Instructions [...] DO; Dr. Arnel Cano MD ~ Signed [facility] Work Phone: 1(953) 905-207909-14-2025 Discharge summary [facility] Medical Records Department [address] [place] [address] Discharge Summary 07/20/25 0907 MR#: [id number] Acct: [id number] Name: RADHA SHAFER Rep #:[id number] : 1960 65 From: Vincent Perdomo PCP: Dr. Jennifer Gordon MD Status:ADM IN Location: [place] [address] Providers Date of Admission: 07/17/25 Date of [...] in her 30s ? She sees a direct mail marketer at [facility] ? 07/20: She completed D10 half-normal [...] (2,000 unit) capsule 50 mcg PO DAILY hzavvgg61/13/23 ferrous sulfate 325 mg (65 mg iron) [...] for nebulization 2.5 mg inhalation Q6 PRN hnaqaerv37/12/25 lovastatin 10 mg tablet 10 mg PO QPM cholesterol #90 tabs 07/17/25 OXYGEN - Supplemental ([facility]FORM[facility] USE ONLY) 07/18/25 Physical Exam Narrative Seen and examined. Patient stated her myalgia/muscle pain has resolved. [facility] No [facility]. No chest pain or [...] Neut % (Auto) 67.9, Lymph % (Auto) 21.1,Wirt % (Auto) 7.2, Eos % (Auto) 2.7, [...] PRN (Reason: wheezing) (DME) OXYGEN - Supplemental ([facility]FORM[facility] USE ONLY) Gas See Rx Instructions [...] Self Care Charges/Coding Visit Charges Inpatient E&M: 67697 Disch Hosp >30min 07/20/25 1127 Cosigner Signature (if applicable): CC: Dr. Jennifer Gordon MD; Dr. Vincent Hood MD~ Signed [facility]09-14-2025 Discharge summary [facility] Medical Records Department [address] [place] [address] Instructions for Home/Discharge Instructions 07/20/25 09 MR#: [id number] Acct: [id number] Name: RADHA SHAFER ANIL Rep #:[id number] [...] PRN (Reason: wheezing) (DME) OXYGEN - Supplemental ([facility] USE ONLY) Gas See Rx Instructions [...] DO; Dr. Arnel Cano MD ~ Signed [facility]09-14-20[facility] Progress note Author Arnel Cano [facility] Note Date/Time July 19, 2025 12:12pm [facility] Medical Records Department [address] [place] [address] Progress Note - Hospitalist 07/19/25 1208 MR#: [id number] Acct: [id number] Name: RADHA SHAFER Rep #:[id number] : 1960 65 From: Arnel parisi MD PCP: Dr. Jennifer Gordon MD Status:ADM IN Location: [place] [address]- 1 Subjective Subjective Doing well, feels better. [...] Neut % (Auto) 63.2, Lymph % (Auto) 24.7,Wirt % (Auto) 8.3, Eos % (Auto) 2.6, [...] in her 30s ? She sees a direct mail marketer at [facility] ? Continue with D10 half-normal saline [...] DVT: Heparin Charges/Coding Visit Charges Inpatient E&M: 98910 Subs Hosp L2 07/19/25 1212 <Electronically signed by Arnel Cano MD> Cosigner Signature (if applicable): CC: ~ Signed [facility] Work Phone: 1(553) 159-209609-13-2025 Progress note [facility] Medical Records Department [address] [place] [address] Progress Note - Hospitalist 07/19/25 1208 MR#: [id number] Acct: [id number] Name: RADHA SHAFER Rep #:[id number] : 1960 65 From: Arnel parisi MD PCP: Dr. Jennifer Gordon MD Status:ADM IN Location: [place] [address]- Subjective Subjective Doing well, feels better. CPK [...] Neut % (Auto) 63.2, Lymph % (Auto) 24.7,Wirt % (Auto) 8.3, Eos % (Auto) 2.6, [...] in her 30s ? She sees a direct mail marketer at [facility] ? Continue with D10 half-normal saline [...] DVT: Heparin Charges/Coding Visit Charges Inpatient E&M: 84047 Subs Hosp L2 07/19/25 1212 Cosigner Signature (if applicable): CC: ~ Signed [facility]09-12-2025 Progress note Author Arnel Cano [facility] Note Date/Time July 18, 2025 2:16pm [facility] Medical Records Department [address] [place] [address] Progress Note - Hospitalist 07/18/25 1401 MR#: [id number] Acct: [id number] Name: RADHA SHAFER Rep #:[id number] : 1960 65 From: Arnel parisi MD PCP: Dr. Jennifer Gordon MD Status:ADM IN Location: [place] [address] Subjective Subjective Feels better than when she [...] 72.5 H, Lymph % (Auto) 18.0 L, Wirt % (Auto) 6.6, Eos % (Auto) 1.6, [...] ALT 16, Alkaline Phosphatase 89, Total Creatine Knecbb546 H, Total Protein 7.1, Albumin 3.9, Globulin [...] Clarity Clear, Urine pH 7.0, Ur Specific [place] 1.010, Urine Protein 30 H, Urine Glucose [...] % (Auto) 63.7, Lymph % (Auto) 24.1, Wirt% (Auto) 8.2, Eos % (Auto) 3.0, Baso [...] in her 30s ? She sees a direct mail marketer at [facility] ? Continue with D10 half-normal saline 2. Essential HTN/HLD/CAD/PAD/history of NSVT ? Continue with her home blood pressure medications ? Will monitor make adjustments as necessary ? Continue with lovastatin ? Continue with aspirin 3. Hypothyroidism ? Stable this is status post thyroidectomy ? Continue with Synthroid ? Will have her follow-up with her monument setter as her TSH is low we will [...] DVT: Heparin Charges/Coding Visit Charges Inpatient E&M: 40053 Subs Hosp L2 07/18/25 3161 <Electronically signed by Arnel Cano MD> Cosigner Signature (if applicable): CC: ~ Signed [facility] Work Phone: 1(222) 813-999809-12-2025 Progress note [facility] Medical Records Department [address] [place] [address] Progress Note - Hospitalist 07/18/25 1401 MR#: [id number] Acct: [id number] Name: RADHA SHAFER Rep #:[id number] : 1960 65 From: Arnel parisi MD PCP: Dr. Jennifer Gordon MD Status:ADM IN Location: [place] [address] Subjective Subjective Feels better than when she [...] 72.5 H, Lymph % (Auto) 18.0 L, Wirt % (Auto) 6.6, Eos % (Auto) 1.6, [...] ALT 16, Alkaline Phosphatase 89, Total Creatine Lifglc726 H, Total Protein 7.1, Albumin 3.9, Globulin [...] Clarity Clear, Urine pH 7.0, Ur Specific [place] 1.010, Urine Protein 30 H, Urine Glucose [...] Neut% (Auto) 63.7, Lymph % (Auto) 24.1, Wirt% (Auto) 8.2, Eos % (Auto) 3.0, Baso [...] in her 30s ? She sees a direct mail marketer at [facility] ? Continue with D10 half-normal saline 2. Essential HTN/HLD/CAD/PAD/history of NSVT ? Continue with her home blood pressure medications ? Will monitor make adjustments as necessary ? Continue with lovastatin ? Continue with aspirin 3. Hypothyroidism ? Stable this is status post thyroidectomy ? Continue with Synthroid ? Will have her follow-up with her monument setter as her TSH is low we will [...] DVT: Heparin Charges/Coding Visit Charges Inpatient E&M: 08267 Subs Hosp L2 07/18/25 1416 Cosigner Signature (if applicable): CC: ~ Signed [facility]09-12-2025 History and physical note Author Elana Granda [facility] Note Date/Time July 18, 2025 6:22am [facility] Medical Records Department [address] [facility] [place] [address] H&P Exam - Hospitalist 07/17/252234 MR#: [id number] Acct: [id number] Name: RADHA SHAFER Rep #:[id number] : 1960 65 From: Elana Adames DO PCP: Dr. Jennifer Gordon MD Status:ADM IN Location: [place] [address] HPI - General General Date of Admission: [...] carnitine palmitoyl transferase II deficiency; followed by direct mail marketer at [facility] on levocarnitine, polyneuropathy; history of cervical radiculopathy, history of NSVT; followed by Dr. Shine of [facility], history of syncope, depression; on duloxetine,chronic diarrhea, GERD; on omeprazole, history of hysterectomy, history of rotator cuff repair, history of cataract; s/p extraction and osteoarthritis; with history of low back pain and total knee replacement who presents to [facility] ER complaining of flare of CPT-2 with muscle aches and pains. Ms. Shafer reports her symptoms began a few hours prior to admission with the sudden-onset of generalized muscle aches and pain that are mild but herald aflare of CPT-2 so she was instructed by her direct mail marketer to come in and be treatedwith D10 [...] this [facility]. [facility] that is expected to extend beyond 2 midnights. [facility] Medical History Arthrosis of right acromioclavicular joint [...] 72.5 H, Lymph % (Auto) 18.0 L, Wirt % (Auto) 6.6, Eos % (Auto) 1.6, [...] ALT 16, Alkaline Phosphatase 89, Total Creatine Acfioc909 H, Total Protein 7.1, Albumin 3.9, Globulin 3.2, Albumin/Globulin Ratio 1.2 Assessment & Plan Assessment/Plan (1) Carnitine palmitoyltransferase II deficiency: (2) Myalgia: (3) Generalized weakness: (4) Obesity (BMI 30-39.9): PLAN: Plan 1. CPT-2 flare with Myalgias and Generalized Weakness; followed by direct mail marketer at [facility] on levocarnitine - Admit to PCU. Continue D10 1/2 NS as per direct mail marketer'srecommendations. Give acetaminophen prn for pain or fever. [...] of NSVT; followed by Dr. Shine of [facility] - Noted. 15. History of [...] 55 minutes. Charges/Coding Visit Charges Inpatient E&M: 63157 Init Hosp L2 07/18/25 0622 <Electronically signed by Elana Deshpande DO> Cosigner Signature (if applicable): CC: Dr. Jennifer Gordon MD; Dr. Elana Deshpande DO~ Signed [facility] Work Phone: 1(642) 471-877309-12-2025 History and physical note [facility] Medical Records Department [address] [facility] [place] [address] H&P Exam - Hospitalist 07/17/252234 MR#: [id number] Acct: [id number] Name: RADHA SHAFER ANIL Rep #:[id number] : 1960 65 From: Elana Adames DO PCP: Dr. 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 Shine of [facility], history of syncope, depression; on duloxetine,chronic diarrhea, GERD; on omeprazole, history of hysterectomy, history of rotator cuff repair, history of cataract; s/p extraction and osteoarthritis; with history of low back pain and total knee replacement who presents to [facility] ER complaining of flare of CPT-2 with muscle aches and pains. Ms. Shafer reports her symptoms began a few hours prior to admission with the sudden-onset of generalized muscle aches and pain that are mild but herald aflare of CPT-2 so she was instructed by her direct mail marketer to come in and be treatedwith D10 [...] this time. She was then admitted to [facility] ongoing care for a stay that is expected to extend beyond 2 midnights. [facility] Medical History Arthrosis of right acromioclavicular joint [...] 72.5 H, Lymph % (Auto) 18.0 L, Wirt % (Auto) 6.6, Eos % (Auto) 1.6, [...] ALT 16, Alkaline Phosphatase 89, Total Creatine [id number] H, Total Protein 7.1, Albumin 3.9, Globulin 3.2, Albumin/Globulin Ratio 1.2 Assessment & Plan Assessment/Plan (1) Carnitine palmitoyltransferase II deficiency: (2) Myalgia: (3) Generalized weakness: (4) Obesity (BMI 30-39.9): PLAN: Plan 1. CPT-2 flare with Myalgias and Generalized Weakness; followed by direct mail marketer at [facility] on levocarnitine - Admit to PCU. Continue D10 1/2 NS as per direct mail marketer'srecommendations. Give acetaminophen prn for pain or fever. [...] of NSVT; followed by Dr. Shine of [facility] - Noted. 15. History of [...] 55 minutes. Charges/Coding Visit Charges Inpatient E&M: 40523 Init Hosp L2 07/18/25 0622 Cosigner Signature (if applicable): CC: Dr. Jennifer Gordon MD; Dr. Elana Deshpande, DO~ Signed [facility]09-12-2025 Discharge summary Author Ramakrishna Maher [facility] Note Date/Time July 17, 2025 10:37pm [facility] Medical Records Department [address] [place] [id number] Emergency Department Summary 07/17/25 MR#: [id number] Acct: [id number] Name: RADHA SHAFER ANIL Rep #:[id number] [...] 65-year-old woman. She is seen by a direct mail marketer at [facility]. She was diagnosed with CPT II. This is a genetic disorder affecting her met embolism offat and may result in dysrhythmia, rhabdomyolysis, hypoglycemia. Patient had a letter from her direct mail marketer that instructed whoever cared for her to order specific tests and to treat with D10 half-normal at 1.5 times maintenance Prior similar symptoms: Yes Recent Illness[facility] Medical History Arthrosis of right acromioclavicular joint [...] 72.5 H Lymph % (Auto) 18.0 L Wirt % (Auto) 6.6 Eos % (Auto) 1.6 [...] (Rate is 62. The EKG is normal. TX intervalis 166 ms. QRS duration 100 ms. QT duration 4 and 20 ms. Fowler is normal.) Management Discussion w/another healthcare provider: Hospitalist (Spoke with Dr. Bynum. Patient was admitted to the PCU he was informed of her disorder and treatment and recommendations by her direct mail marketer.) Treatment and Re-Evaluation :: It is an [...] Secondary rhabdomyolysis Disposition Disposition: Acute Care Hospital [facility] What to do if you have Problems For any increased pain, shortness of breath, bleeding, nausea or vomiting, chestpain, or any unexpected problems, contact your Primary Care Provider. Call [facility] ([phone]) or report to the closest Emergency Room. Call 911 if necessary. 07/17/252236 <Electronically signed by Ramakrishna Maher MD> Cosigner Signature (if applicable): CC: Dr. Jennifer Gordon MD ~ Signed [facility] Work Phone: 1(457) 441-222609-11-2025 Discharge summary [facility] System Medical Records Department [address] [place] [address] Emergency Department Summary 07/17/25 MR#: [id number] Acct: [id number] Name: RADHA SHAFER Rep #:[id number] : [...] 65-year-old woman. She is seen by a direct mail marketer at [facility]. She was diagnosed with CPT II. This is a genetic disorder affecting her met embolism offat and may result in dysrhythmia, rhabdomyolysis, hypoglycemia. Patient had a letter from her direct mail marketer that instructed whoever cared for her to [...] 72.5 H Lymph % (Auto) 18.0 L Wirt % (Auto) 6.6 Eos % (Auto) 1.6 [...] (Rate is 62. The EKG is normal. TX intervalis 166 ms. QRS duration 100ms. QT duration 4 and 20 ms. Fowler is normal.) Management Discussion w/another healthcare provider: Hospitalist (Spoke with Dr. Bynum. Patient was admitted to the PCU he was informed of her disorder and treatment and recommendations by her direct mail marketer.) Treatment and Re-Evaluation :: It is an [...] Secondary rhabdomyolysis Disposition Disposition: Acute Care Hospital [facility] What to do if you have Problems For any increased pain, shortness of breath, bleeding, nausea or vomiting, chestpain, or any unexpected problems, contact your Primary Care Provider. Call [facility] ([phone]) or report tothe closest Emergency Room. Call 911 if necessary. 07/17/252236 Cosigner Signature (if applicable): CC: Dr. Jennifer Gordon MD ~ Signed [facility]08-12-2025 Telephone encounter Note* Telephone Encounter - Nikolai Gray - 06/17/2025 2:50 PM EDT Left message for patient to schedule a follow up appy [facility]08-12-2025 Miscellaneous Notes* Telephone Encounter - Nikolai Gray - 06/17/2025 2:50 PM EDT Left message for patient to schedule a follow up appy [facility] Telephone encounter Note* Telephone Encounter - Meliza Rust - 06/11/2025 2:35 PM EDT Patient called and was stuck in traffic . Wouldn't make it until after 4 she stayed that she will call in about a week. [facility]08-06-2025 Miscellaneous Notes* Telephone Encounter - Meliza Rust - 06/11/2025 2:35 PM EDT Patient called and was stuck in traffic . Wouldn't make it until after 4 she stayed that she will call in about a week. documented in this [facility]Day[facility]07-[facility]-2025 Radiology Diagnostic study note [facility] Imaging Services [address] [place], [place] [address] Thyroid MR#: [id number] Acct: [id number] Name: RADHA SHAFER ANIL Rep #: [id number] : 1960 F 65 From: Shavonne Guevara MD PCP: Dr. Jennifer Gordon MD Status: REG CLI Study:Thyroid Date of Exam: 05/07/25 Exam# [id number] Ordering Dr: Jennifer Gordon MD PROCEDURE: THYROID, [...] abnormality of the thyroidectomy bed. Reading Location: [facility]MT[facility]LOGT-GD CC: Dr. Jennifer Gordon MD ~ Phosphoric Acid Supervisor: Signed [facility]06-27-2025 Telephone encounter Note* Telephone Encounter - Celinalidia Meaghan - 05/02/2025 10:02 AM EDT [facility] called to see if there was an update on the patient taking or not taking the Dojolvi and if there are any side effects she may be experiencing. Please give them a call at [phone] and ask for a Pharmacist on the Dojolvi team. Thank you, Meaghan [facility]06-27-2025 Miscellaneous Notes* Telephone Encounter - Meaghan Valero - 05/02/2025 10:02 AM EDT [facility] called to see if there was an update on the patient taking or not taking the Dojolvi and if there are any side effects she may be experiencing. Please give them a call at [phone] and ask for a Pharmacist on the Dojolvi team. Thank you, Meaghan documented in this encounterDayton [facility]06-25-2025 NoteHeart & Vascular Clinic Note [facility] Visit Date: 04/30/2025 Patient Name: Radha hSafer : 1960 Reason for Visit: Follow-up (4 [...] #HTN #HLD #FELISA #ECHO; 04/2024. Done in [place]. LVEF-60% #CARDIAC MRI Normal biventricular size and [...] PROCEDURE; Surgeon: Jada Vargas MD; Location: [facility]; Service: Colorectal CARDIAC CATHETERIZATION N/A 09/26/2022 Procedure: Coronary Angiogram; Surgeon: Tor Long MD; Location: [facility]; Service: Cardiovascular CARDIOVASCULAR STRESS TEST CHOLECYSTECTOMY COLONOSCOPY with biopsies COLONOSCOPY N/A 02/17/2022 Procedure: COLONOSCOPY; Surgeon: Jada Vargas MD; Location: [facility]; Service: Colorectal EGD N/A 08/15/2022 Procedure: ESOPHAGOGASTRODUODENOSCOPY WITH BIOPSY; Surgeon: Tyshawn Santos MD; Location: Endo; Service: Gastroenterology GALLBLADDER HC LEFT HEART CATH N/A 09/26/2022 Procedure: Left Heart Cath; Surgeon: Tor Long MD; Location: [facility]; Service: Cardiovascular HYSTERECTOMY JOINT REPLACEMENT Left knee ORTHOPEDIC SURGERY r wrist surgery, left ankle, right rotator cuff ROTATOR CUFF REPAIR Right SIGMOIDOSCOPY FLEXIBLE N/A 06/23/2022 Procedure: SIGMOIDOSCOPY FLEXIBLE WITH BIOPSY; Surgeon: Tyshawn Santos MD; Location: Endo; Service: Gastroenterology THYROIDECTOMY N/A 07/15/2015 Procedure: TOTAL THYROIDECTOMY; Surgeon: Lopez Alonso MD; Location: [facility]; Service: US ECHO TRANSTHORACIC FOLLOWUP [...] 1 (one) table (more content not included)...[facility] [id number] History of Present illness Narrative* Cb Boudreaux MD - 04/30/2025 10:29 AM EDT Heart & Vascular Clinic Note [facility] Visit Date: [...] #HTN #HLD #FELISA #ECHO; 04/2024. Done in [address]. LVEF-60% #CARDIAC MRI Normal biventricular size and [...] PROCEDURE; Surgeon: Jada Vargas MD; Location: [facility]; Service: Colorectal CARDIAC CATHETERIZATION N/A 09/26/2022 Procedure: Coronary Angiogram; Surgeon: Tor Long MD; Location: [facility]; Service: Cardiovascular CARDIOVASCULAR STRESS TEST CHOLECYSTECTOMY COLONOSCOPY with biopsies COLONOSCOPY N/A 02/17/2022 Procedure: COLONOSCOPY; Surgeon: Jada Vargas MD; Location: [facility]; Service: Colorectal EGD N/A 08/15/2022 Procedure: ESOPHAGOGASTRODUODENOSCOPY WITH BIOPSY; Surgeon: Tyshawn Santos MD; Location: [facility]; Service: Gastroenterology GALLBLADDER HC LEFT HEART CATH N/A 09/26/2022 Procedure: Left Heart Cath; Surgeon: Tor Long MD; Location: [facility]; Service: Cardiovascular HYSTERECTOMY JOINT REPLACEMENT Left knee ORTHOPEDIC SURGERY r wrist surgery, left ankle, right rotator cuff ROTATOR CUFF REPAIR Right SIGMOIDOSCOPY FLEXIBLE N/A 06/23/2022 Procedure: SIGMOIDOSCOPY FLEXIBLE WITH BIOPSY; Surgeon: Tyshawn Santos MD; Location: [facility]; Service: Gastroenterology THYROIDECTOMY N/A 07/15/2015 Procedure: TOTAL THYROIDECTOMY; Surgeon: Lopez Alonso MD; Location: [facility]; Service: US ECHO TRANSTHORACIC FOLLOWUP [...] total) by mouth daily with breakfast . 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 Vancomycin Rash documented in this [id number] Radiology Diagnostic study note [facility] Imaging Services [address] [place] [address] Lung Screening MR#: [id number] Acct: [id number] Name: RADHA SHAFER Rep #: [id number] : 1960 F 65 From: Chris Tamez MD PCP: Dr. Jennifer Gordon MD Status: REG CLI Study:Low Dose CT Lung Screening Date of Exam : 04/17/25 Exam# [id number] Ordering Dr: Jonh Heredia NP [facility] PROCEDURE: LOW DOSE CT LUNG SCREENING 04/17/2025 REASON FOR EXAM: FORMER SMOKER TECHNIQUE: Low Dose CT Lung screening without contrast. Coronal and Sagittal reconstructionseries were provided. One or more dose reduction techniques were used (e.g., Automated exposure control, adjustment of the mA and/or kV according to patient size, use of iterative reconstruction technique). REFERENCE LINK: Sqeeqee Lung-RADS RADIATION DOSE SUMMARY: CTDlvol: 16.28 mGy [...] LDCT. Other Significant Findings: None. Reading Location: [facility]N CC: [facility]John Heredia; Dr. Jennifer Gordon MD ~ Phosphoric Acid Supervisor: Signed [facility]06-11-2025 Instructions* Patient Instructions* Yareli Woodruff MA - 2025 4:26 PM EDT It was our pleasure to see you in EP Clinic today. Please contact: JASON Candelario [phone] FERMIN Downs RMA with questions, concerns, or if you need prescription refills before your next appointment. documented in this [id number] Evaluation note* Diagnosis Onset Date Resolution Status Admit Date Prediabetes acute April 16 1:12pm FELISA (obstructive sleep apnea) chroni c 2025 1:12pm Carnitine palmitoyltransfera se II deficiency inactive 2025 1:12pm Stage 3b chronic kidney dise ase (CKD) noneactive 2025 1:12pm Moderate major depression noneactive 2025 1:12pm Mixed hyperlipidemia noneactive 2025 1:12pm Foamy urine noneactive April 16 1:12pm Chronic abdominal pain noneactive [facility] 2024 1:12pm Post-operative hypothyroidism noneac tive 2025 1:12pm Ventricular tachycardia noneactive [facility] 2024 1:12pm Essential hypertension noneactive [facility] 2024 1:12pm COPD (chronic obstructive pulmonary disease) noneactive April 16 1:12pm Obesity (BMI 30-39.9) noneactive [facility] 2024 1:12pm Smoking greater than 20 pack [...] 2025 11:28pm Generalized weakness inactive Jul 11:28pm [facility] Work Phone: 1(150) 685-457205-22-2025 Evaluation note* Diagnosis Onset Date Resolution Status [...] 16 1:12pm Chronic abdominal pain noneactive [facility] 2024 1:12pm Post-operative hypothyroidism noneac tive 2025 1:12pm Ventricular tachycardia noneactive [facility] 2024 1:12pm Essential hypertension noneactive [facility] 2024 1:12pm COPD (chronic obstructive pulmonary disease) noneactive April 16 1:12pm Obesity (BMI 30-39.9) noneactive [facility] 2024 1:12pm Smoking greater than 20 pack years acute June 17 2:44pm Stage 3 severe COPD by GOLD classification acute June 17 2:44pm Hypoxemia chronic June 17 2:44pm FELISA (obstructive sleep apnea) chroni c June 17, 2025 2:44pm Anemia acute June 26 1:54pm [facility] Work Phone: 1(587) 719-521105-22-2025 Evaluation note* Diagnosis Onset Date Resolution Status [...] tive 2025 1:12pm Ventricular tachycardia noneactive [facility] 2024 1:12pm Essential hypertension noneactive 2024 [...] Secondary rhabdomyolysis acute July 17, 2025 10:51pm [facility] Work Phone: 1(346) 495-726105-22-2025 Evaluation note* Diagnosis Onset Date Resolution Status [...] Secondary rhabdomyolysis acute July 17, 2025 11:28pm [facility] Work Phone: 1(427) 732-489804-30-2025 Telephone encounter Note* Telephone Encounter - Shaina Boykin MD - 03/05/2025 1:47 PM EDT Received a call from Radha this afternoon. She has CPT2. She was admitted last week to [facility] due to gastroenteritis and subsequently elevated CK [...] She plans to get labs drawn at [facility]. I asked her to give us a call if her symptoms to not improve or if she has other questions/concerns. Plan discussed with wire preparation machine tender attending, Dr. Moon, and her primary metabolic provider, Dr. Hyman. Shaina Boykin MD PGY-4 Division of Genetic & Genomic Medicine [facility] Work Phone: [phone] Miscellaneous Notes* Telephone Encounter - Shaina Boykin MD - 03/05/2025 1:47 PM EDT Received a call from Radha this afternoon. She has CPT2. She was admitted last week to [facility] due to gastroenteritis and subsequently elevated CK [...] She plans to get labs drawn at [facility]. I asked her to give us a call if her symptoms to not improve or if she has other questions/concerns. Plan discussed with wire preparation machine tender attending, Dr. Moon, and her primary metabolic provider, Dr. Hyman. Shaina Boykin MD PGY-4 Division of Genetic & Genomic Medicine [facility] documented in this encounterDay[facility]04-24-2025 Evaluation note* Diagnosis Onset Date [...] April 16 1:12pm Chronic abdominal pain noneactive [facility] 2024 1:12pm Post-operative hypothyroidism noneac tive 2025 1:12pm Ventricular tachycardia noneactive [facility] 2024 1:12pm Essential hypertension noneactive [facility] 2024 1:12pm COPD (chronic obstructive pulmonary disease) noneactive April 16 1:12pm Obesity (BMI 30-39.9) noneactive [facility] 2024 1:12pm Smoking greater than 20 pack years acute June 17 2:44pm Stage 3 severe COPD by GOLD classification acute June 17 2:44pm Hypoxemia chronic June 17, 025 2:44pm FELISA (obstructive sleep apnea) chroni c June 17, 2025 2:44pm [facility] Work Phone: 1(724) 381-874304-15-2025 History of Present illness Narrative* Adelina Mejia [...] in Direct Patient Care: 5 Narrative: This industrial sociologist provided spiritual care and supportive presence for the patient. Extractor And Wringer Operator remains available for emotional and spiritual support as needed. Patients Response to Pastoral Care: Expressed Gratitude for Visit Planning for Future Visits: PRN Pastoral care will remain available for emotional and spiritual support as needed. Chaplains can bereached by dialing the on-call number found within the signature of this note. Or, requested by on-call day industrial sociologist via [employer]. Rev. Emmett Rubio Extractor And Wringer Operator Spiritual Care Department 02/17/25 7271 Visit Background Visit With Patient Visit By Staff Extractor And Wringer Operator Visit Progression Introduction;Follow-Up Visit Requested By Extractor And Wringer Operator Initiated Visit Source Extractor And Wringer Operator Initiated Visit Type Inpatient Visit Circumstances and Events Routine Visit Visit Length (minutes) 5 Patient's Response to Pastoral Care Expressed Gratitude for Visit Visit Planning PRN Spiritual Assessment Not assessed during visit Spiritism Assessment Not assessed during this visit Family assessment provided? Unable to asess during this visit * Letitia Obrien MD - 02/17/2025 1:30 PM EDT [facility] PROGRESS NOTE Assessment and Plan Radha Shafer is a 64 y.o. female patient of , Physician with history of COPD on home oxygen, struct of sleep apnea, hypertension, chronic kidney disease, hypothyroidism, CPT deficiency presented to [facility] on 02/13/2025 with shortness of breath. Gastroenteritis, [...] with dextrose 10%/normal saline genetic specialist at [facility] CK improving, discontinue fluids on February [...] Russell MD - 02/16/2025 12:43 PM EDT [facility] PROGRESS NOTE Assessment and Plan Radha Shafer is a 64 y.o. female patient of , Physician with history of COPD on home oxygen, struct of sleep apnea, hypertension, chronic kidney disease, hypothyroidism, CPT deficiency presented to [facility] on 02/13/2025 with shortness of breath. Gastroenteritis, [...] with dextrose 10%/normal saline genetic specialist at [facility] CK improving, discontinue fluids on February [...] Russell MD - 02/15/2025 12:49 PM EDT [facility] PROGRESS NOTE Assessment and Plan Radha Shafer is a 64 y.o. female patient of , Physician with history of COPD on home oxygen, struct of sleep apnea, hypertension, chronic kidney disease, hypothyroidism, CPT deficiency presented to [facility] on 02/13/2025 with shortness of breath. 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 Muscle aches Rhabdomyolysis Elevated CK above 20,000 one presented IV hydration with dextrose 10%/normal saline genetic specialist at [facility] CK in the morning Monitor BMP/magnesium [...] Russell MD - 02/14/2025 3:28 PM EDT [facility] PROGRESS NOTE Assessment and Plan Radha Shafer is a 64 y.o. female patient of , Physician with history of COPD on home oxygen, struct of sleep apnea, hypertension, chronic kidney disease, hypothyroidism, CPT deficiency presented to [facility] on 02/13/2025 with shortness of breath. Gastroenteritis [...] in Direct Patient Care: 15 Narrative: This industrial sociologist visited with pt Radha while rounding on the unit. Extractor And Wringer Operator introduced selfand the role of a industrial sociologist. Listened empathetically while Radha shared her experience, and that shewas having a difficult time staying hydrated. Radha shared no immediate emotional/spiritual needs, but thanked the industrial sociologist for the visit. Pastoral Care to remain available as needed. 02/14/25 1445 Visit Background Visit With Patient Visit By Student Extractor And Wringer Operator Visit Progression Introduction Visit Requested By Extractor And Wringer Operator Initiated Visit Source Extractor And Wringer Operator Initiated Visit Type Inpatient;Rounding Visit Circumstances and Events Routine Visit Visit Length (minutes) 15 Patient's Response to Pastoral Care Appeared to be well-engaged Visit Planning PRN Spiritual Assessment Not assessed during visit Spiritism Assessment Not assessed during this visit Family assessment provided? Unable to asess during this visit Kavya Gentile MDiv Extractor And Wringer Operator Business Unit Controller [facility] On-Call Extractor And Wringer Operator Hotline: [phone] * Delmy Olmedo RN - 02/14/2025 2:26 PM EDT Patient complained of burning up her arm and to her shoulder, after this nurse hung doxycycline Axt. This nurse paused said axt, notified Dr. Sidra Espinoza at this time. documented in this [id number] NoteS DISCHARGE SUMMARY -- [facility] Radha Shafer Admitted: 02/13/2025 Discharge Date: 02/18/25 PCP Handoff Recommended Outpatient Testing Follow-up with PCP Results Pending At Discharge None Clinical Summary Radha Shafer is a 64 y.o. female patient of , Physician with history of COPD on home oxygen, struct of sleep apnea, hypertension, chronic kidney disease, hypothyroidism, CPT deficiency presented to [facility] on 02/13/2025 with shortness of breath. Gastroenteritis, [...] with dextrose 10%/normal saline genetic specialist at [facility] CK improving 500 on discharge time, [...] tablet Commonly known as: (more content not included)...[facility]04-15-2025 Hospital course Narrative* Jossie Alcazar MD - 02/18/2025 11:52 AM EDT Images from the original note were not included. [facility] DISCHARGE SUMMARY -- [facility] Radha Shafer Admitted: 02/13/2025 Discharge Date: 02/18/25 PCP Handoff Recommended Outpatient Testing Follow-up with PCP Results Pending At Discharge None Clinical Summary Radha Shafer is a 64 y.o. female patient of , [facility] with history of COPD on home oxygen, struct of sleep apnea, hypertension, chronic kidney disease, hypothyroidism, CPT deficiency presented to [facility] on 02/13/2025 with shortness of breath. Gastroenteritis, [...] with dextrose 10%/normal saline genetic specialist at [facility] CK improving 500 on discharge time, [...] Trelegy Ellipta 200-62.5-25 mcg Dsdv Generic drug: npcrjvboorz-mtgrfindj-czvmtfab Inhale 1 (one) Inhalation daily . Quantity: [...] on 02/18/25, 11:52 AM documented in this [id number] Plan of care note* Plan of Care [...] level of psychosocial functioning Outcome: Partially Met [id number] Miscellaneous Notes* Plan of Care - Delmy [...] from Dr. Anjana Campbell (Genetics Attending at [facility]). Concerned that Joelo might need different management d/t genetic deficiency. They recommend D10.9NS @ 150 ml/hr as this deficiency also needs increased calories. She will be wire preparation machine tender until . The # to reach her is - main office of physician is [phone]. Dr Anjana Campbell (genetics). Tell whomever answers [...] without acute dynamic changes, no STEMI. NSR. TX interval 144 ms. QRS 90 ms. BPM: [...] ECG and sinus tachycardia Comments: Sinus tachycardia. TX interval 140 ms. QRS [address] and T wave abnormality. No STEMI. documented in this [id number] NoteS PROGRESS NOTE Assessment and Plan Radha Shafer is a 64 y.o. female patient of , Physician with history of COPD on home oxygen, struct of sleep apnea, hypertension, chronic kidney disease, hypothyroidism, CPT deficiency presented to [facility] on 02/13/2025 with shortness of breath. Gastroenteritis, [...] with dextrose 10%/normal saline genetic specialist at [facility] CK improving, discontinue fluids on February [...] affect AUTHENTICATED BY LETITIA OBRIEN, ON 02/17/2025 13:31:[address] [place] [address] 02-17-2025 Consult note* Brigette Govea RN - [...] this admission insurance coverage is listed as [facility] MANAGED MEDICARE[facility]HMO SNP) and MEDICAID[place] as a secondary insurance. Pt denies transportation, medication or food insecurity. Pt denies any concerns relating to obtaining medications or follow up medical care. DISCHARGE CARE RESOURCES: Pt has Hui Whitehead as PCP. The patient is not currently receiving home health services.. Pt's daughter as teachable managed care director. Pt does not have services with [facility] on Aging such as [facility]/ [facility]. CM will continue to follow this [...] routine activities due to chronic pain:: Yes [id number] Consult note* Brigette Govea RN - 02/17/2025 [...] this admission insurance coverage is listed as [facility] MANAGED MEDICARE/[facility] (O SNP) and MEDICAID/[place] as a secondary insurance. Pt denies transportation, medication or food insecurity. Pt denies any concerns relating to obtaining medications or follow up medical care. DISCHARGE CARE RESOURCES: Pt has Hui Whitehead as PCP. The patient is not currently receiving home health services.. Pt's daughter as teachable managed care director. Pt does not have services with [facility] on Aging such as [facility]/ [facility]. CM will continue [...] to chronic pain:: Yes documented in this [id number] Plan of care note* Plan of Care [...] level of psychosocial functioning Outcome: Partially Met [id number] Plan of care note* Plan of Care - Rachael Huffman RN - 02/16/2025 1:36 PM EDT Problem: Actual or potential alteration in health Goal: Absence of healthcare acquired conditions Outcome: Partially Met Goal: Knowledge of Interdisciplinary Plan of Care Outcome: Partially Met Goal: Knowledge of Enviroment Outcome: Partially Met Problem: Pressure Injury, Risk of Goal: Absence of pressure injury Outcome: Partially Met [id number] NoteS PROGRESS NOTE Assessment and Plan Radha Shafer is a 64 y.o. female patient of , Physician with history of COPD on home oxygen, struct of sleep apnea, hypertension, chronic kidney disease, hypothyroidism, CPT deficiency presented to [facility] on 02/13/2025 with shortness of breath. Gastroenteritis, [...] with dextrose 10%/normal saline genetic specialist at [facility] CK improving, discontinue fluids on February [...] affect AUTHENTICATED BY OLGA RUSSELL, ON 02/16/2025 12:46:50[facility] 02-15-2025 NoteS PROGRESS NOTE Assessment and Plan Radha Shafer is a 64 y.o. female patient of , Physician with history of COPD on home oxygen, struct of sleep apnea, hypertension, chronic kidney disease, hypothyroidism, CPT deficiency presented to [facility] on 02/13/2025 with shortness of breath. 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 Muscle aches Rhabdomyolysis Elevated CK above 20,000 one presented IV hydration with dextrose 10%/normal saline genetic specialist at [facility] CK in the morning Monitor BMP/magnesium [...] affect AUTHENTICATED BY OLGA RUSSELL, ON 02/15/2025 12:52:[address] [place] [address] 02-15-2025 Plan of care note* Plan of Care - Rachael Huffman RN - 02/15/2025 11:58 AM EDT Problem: Actual or potential alteration in health Goal: Absence of healthcare acquired conditions Outcome: Partially Met Goal: Knowledge of Interdisciplinary Plan of Care Outcome: Partially Met Goal: Knowledge of Enviroment Outcome: Partially Met [id number] Progress note* Quick Note - Elisabeth Francis [...] 60. Additional iv inserted into left forearm. [id number] Progress note* Quick Note - Rae Hairston CNP - 02/14/2025 10:54 PM EDT Received a call from Dr. Anjana Campbell (Genetics Attending at [facility]). Concerned that Rhabdo might need different management d/t genetic deficiency. They recommend D10.9NS @ 150 ml/hr as this deficiency also needs increased calories. She will be wire preparation machine tender until . The # to reach her is - main office of physician is [phone]. Dr Anjana Campbell (genetics). Tell whomever answers [...] 1 L NS bolus Additional care provided: [facility] Work Phone: [phone]) 629-182604-11-2025 [facility] PROGRESS NOTE Assessment and Plan Radha Shafer is a 64 y.o. female patient of , Physician with history of COPD on home oxygen, struct of sleep apnea, hypertension, chronic kidney disease, hypothyroidism, CPT deficiency presented to [facility] on 02/13/2025 with shortness of breath. Gastroenteritis [...] affect AUTHENTICATED BY OLGA RUSSELL ON 02/14/2025 15:33:[address] [place] [address] 02-14-2025 Plan of care note* Plan of Care - Delmy Olmedo RN - 02/14/2025 3:27 PM EDT POC intiated Problem: Actual or potential alteration in health Goal: Absence of healthcare acquired conditions Outcome: Partially Met Goal: Knowledge of Interdisciplinary Plan of Care Outcome: Partially Met Goal: Knowledge of Enviroment Outcome: Partially Met [id number] Emergency department Note* Amelia Anderson RN - 02/14/2025 12:35 PM EDT Report called to [facility] for room 4714 [id number] Emergency department Note* Amelia Anderson RN - [...] via nasal cannula Current Needs Required 2 Telemetry:Black Ash Worker On: Yes LDAs: Peripheral IV 02/13/25 [...] EDT EMERGENCY MEDICINE PROVIDER NOTE WELCOME TO [facility] NAME: Radha Shafer AGE: 64 y.o. SEX: female : 1960 ENCOUNTER DATE: 02/13/25 CSN: [id number] PCP: Erin Physician History of Presenting Illness/Medical [...] was given 4 baby aspirin by EMS MOLDER APPRENTICE. No nitroglycerin. Patient states that she was [...] ear normal. Nose: Nose normal. Mouth/Throat: Lips: Excello. Mouth: Mucous membranes are moist. Eyes: General: [...] All other components within normal limits Narrative: [facility] has implemented the eGFR [...] Procedure Abnormality Status --------- ------ CBC Auto Differential[[id number]] Abnormal Final result Please view results for these tests on the individual orders. OBTAIN VENOUS BLOOD GASES AND PERFORM CPK TSH BASIC METABOLIC PANEL MAGNESIUM LEVEL CBC AND DIFFERENTIAL Narrative: The following orders were created for panel order CBC and Differential. Procedure Abnormality Status --------- ------ CBC Auto Differential[[id number]] Please view results for these tests on [...] PROCEDURE; Surgeon: Jada Vargas MD; Location: [facility]; Service: Colorectal CARDIAC CATHETERIZATION N/A 09/26/2022 Procedure: Coronary Angiogram; Surgeon: Tor Long MD; Location: [facility]AF[facility]Y MANAGER; Service: Cardiovascular CARDIOVASCULAR STRESS TEST CHOLECYSTECTOMY COLONOSCOPY with biopsies COLONOSCOPY N/A 02/17/2022 Procedure: COLONOSCOPY; Surgeon: Jada Vargas MD; Location: [facility]; Service: Colorectal EGD N/A 08/15/2022 Procedure: ESOPHAGOGASTRODUODENOSCOPY WITH BIOPSY; Surgeon: Tyshawn Santos MD; Location: Endo; Service: Gastroenterology GALLBLADDER HC LEFT HEART CATH N/A 09/26/2022 Procedure: Left Heart Cath; Surgeon: Tor Long MD; Location: [facility]NA[facility]; Service: Cardiovascular HYSTERECTOMY JOINT REPLACEMENT Left knee ORTHOPEDIC SURGERY r wrist surgery, left ankle, right rotator cuff ROTATOR CUFF REPAIR Right SIGMOIDOSCOPY FLEXIBLE N/A 06/23/2022 Procedure: SIGMOIDOSCOPY FLEXIBLE WITH BIOPSY; Surgeon: Tyshawn Santos MD; Location: Endo; Service: Gastroenterology THYROIDECTOMY N/A 07/15/2015 Procedure: TOTAL THYROIDECTOMY; Surgeon: Lopez Alonso MD; Location: [facility]; Service: ECHO TRANSTHORACIC FOLLOWUP LIMITED [...] total) by mouth daily with breakfast . wqtnxnqwypx-qhxeqlszt-kdbrqmbq (Trelegy Ellipta) 200-62.5-25 mcg DsDv Inhale 1 [...] (premix) (3.375 g Intravenous New Bag 02/13/25 253) fentaNYL (SUBLIMAZE) inj syringe 25 mcg (has [...] 5' 5 Wt 98 kg (216 lb) QlI226% BMI 35.94 kg/m In brief, patient is [...] level and did provide 500 ccIVF, unfortunately technical laboratory asst had called ED charge nurse to inform [...] Acid: 1.5 [ZW] 1716 Informed by ED returned goods repairer that lab team had called to inform [...] No dense focal consolidation is seen. [ZW] 1782 Update: Elevated CPK at 28k, given the [...] . Astrid Sanders DO ED Attending Physician [facility] (Please note that portions of this note may have been completed with a voice recognition program. 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 Astrid Sanders DO 02/13/25 5347 * Astrid Connolly RN - 02/13/2025 3:40 PM EDT Pt reports sob and chest pain with hx of copd. Pt was given asa and duoneb treatment. Pt reports feeling much better after duoneb * Marina Prado RN - 02/13/2025 3:40 PM EDT Bed: 25 Expected date: Expected time: Means of arrival: Comments: Nick documented in this [id number] Emergency department Note* Fany De Leon - 02/14/2025 9:50 AM EDT Meal Tray delivered at this time. 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 [x] Patient updated on plan of care [x] All comfort needs addressed [x] Patient updated on duration of visit All questions answered, patient denies further needs. Call light within reach. [id number] Emergency department Note* Meaghan Butler RN - 02/14/2025 5:30 AM EDT Hourly rounding assessment completed on the patient. [x] Patient updated on plan of care [x] All comfort needs addressed [x] Patient updated on duration of visit All questions answered, patient denies further needs. Call light within reach. [id number] Emergency department Note* Meaghan Butler RN - 02/14/2025 4:28 AM EDT Hourly rounding assessment completed on the patient. [x] Patient updated on plan of care [x] All comfort needs addressed [x] Patient updated on duration of visit All questions answered, patient denies further needs. Call light within reach. [id number] Emergency department Note* Meaghan Butler RN - 02/14/2025 3:30 AM EDT Hourly rounding assessment completed on the patient. [x] Patient updated on plan of care [x] All comfort needs addressed [x] Patient updated on duration of visit All questions answered, patient denies further needs. Call light within reach. [id number] Emergency department Note* Meaghan Butler RN - 02/14/2025 2:44 AM EDT Hourly rounding assessment completed on the patient. [x] Patient updated on plan of care [x] All comfort needs addressed [x] Patient updated on duration of visit All questions answered, patient denies further needs. Call light within reach. [id number] Emergency department Note* Meaghan Butler RN - 02/14/2025 1:30 AM EDT Hourly rounding assessment completed on the patient. [x] Patient updated on plan of care [x] All comfort needs addressed [x] Patient updated on duration of visit All questions answered, patient denies further needs. Call light within reach. [id number] Emergency department Note* Meaghan Butler RN - 02/14/2025 12:03 AM EDT Hourly rounding assessment completed on the patient. [x] Patient updated on plan of care [x] All comfort needs addressed [x] Patient updated on duration of visit All questions answered, patient denies further needs. Call light within reach. [id number] Emergency department Note* Meaghan Butler RN - 02/13/2025 11:16 PM EDT Hourly rounding assessment completed on the patient. [x] Patient updated on plan of care [x] All comfort needs addressed [x] Patient updated on duration of visit All questions answered, patient denies further needs. Call light within reach. T [id number] History and physical note* Susan Thakur MD - 02/13/2025 8:20 PM EDT [facility] HISTORY AND PHYSICAL -- [facility] Patient Name: Radha Shafer : 1960 MR #: [id number] Admit Date: 02/13/2025 Physicians: No, Physician (Family); No ref. provider found (Referring) Radha Shafer is a 64 y.o. female patient of No, Physician with history of COPD on home oxygen, struct of sleep apnea, hypertension, chronic kidney disease, hypothyroidism, CPT deficiency presented to [facility] on 02/13/2025 with shortness of breath. Shortness [...] PROCEDURE; Surgeon: Jada Vargas MD; Location: [facility]; Service: Colorectal CARDIAC CATHETERIZATION N/A 09/26/2022 Procedure: Coronary Angiogram; Surgeon: Tor Long MD; Location: [facility]; Service: Cardiovascular CARDIOVASCULAR STRESS TEST CHOLECYSTECTOMY COLONOSCOPY with biopsies COLONOSCOPY N/A 02/17/2022 Procedure: COLONOSCOPY; Surgeon: Jada Vargas MD; Location: [facility]; Service: Colorectal EGD N/A 08/15/2022 Procedure: ESOPHAGOGASTRODUODENOSCOPY WITH BIOPSY; Surgeon: Tyshawn Santos MD; Location: Endo; Service: Gastroenterology GALLBLADDER HC LEFT HEART CATH N/A 09/26/2022 Procedure: Left Heart Cath; Surgeon: Tor Long MD; Location: [facility]GER; Service: Cardiovascular HYSTERECTOMY JOINT REPLACEMENT Left knee ORTHOPEDIC SURGERY r wrist surgery, left ankle, right rotator cuff ROTATOR CUFF REPAIR Right SIGMOIDOSCOPY FLEXIBLE N/A 06/23/2022 Procedure: SIGMOIDOSCOPY FLEXIBLE WITH BIOPSY; Surgeon: Tyshawn Santos MD; Location: [facility]; Service: Gastroenterology THYROIDECTOMY N/A 07/15/2015 Procedure: TOTAL THYROIDECTOMY; Surgeon: Lopez Alonso MD; Location: [facility]; Service: US ECHO TRANSTHORACIC FOLLOWUP [...] 5' 5 Wt 98 kg (216 lb) SfL186% BMI 35.94 kg/m General Appearance: alert; acutely [...] 07/10/2013 Years since quittin.6 Smokeless Tobacco Never [id number] NoteHMS HISTORY AND PHYSICAL -- [facility] Patient Name: Radha Shafer : 1960 MR #: [id number] Admit Date: 02/13/2025 Physicians: No, Physician (Family); No ref. provider found (Referring) Radha Shafer is a 64 y.o. female patient of Erin, Physician with history of COPD on home oxygen, struct of sleep apnea, hypertension, chronic kidney disease, hypothyroidism, CPT deficiency presented to [facility] on 02/13/2025 with shortness of breath. Shortness [...] PROCEDURE; Surgeon: Jada Vargas MD; Location: [facility]; Service: Colorectal CARDIAC CATHETERIZATION N/A 09/26/2022 Procedure: Coronary Angiogram; Surgeon: Tor Long MD; Location: [facility]GER; Service: Cardiovascular CARDIOVASCULAR STRESS TEST CHOLECYSTECTOMY COLONOSCOPY with biopsies COLONOSCOPY N/A 02/17/2022 Procedure: COLONOSCOPY; Surgeon: Jada Vargas MD; Location: [facility]; Service: Colorectal EGD N/A 08/15/2022 Procedure: ESOPHAGOGASTRODUODENOSCOPY WITH BIOPSY; Surgeon: Tyshawn Santos MD; Location: Endo; Service: Gastroenterology GALLBLADDER HC LEFT HEART CATH N/A 09/26/2022 Procedure: Left Heart Cath; Surgeon: Tor Long MD; Location: [facility] MANAGER; Service: Cardiovascular HYSTERECTOMY JOINT REPLACEMENT Left knee ORTHOPEDIC SURGERY r wrist surgery, left ankle, right rotator cuff ROTATOR CUFF REPAIR Right SIGMOIDOSCOPY FLEXIBLE N/A 06/23/2022 Procedure: SIGMOIDOSCOPY FLEXIBLE WITH BIOPSY; Surgeon: Tyshawn Santos MD; Location: [facility]; Service: Gastroenterology THYROIDECTOMY N/A 07/15/2015 Procedure: TOTAL THYROIDECTOMY; Surgeon: Lopez Alonso MD; Location: [facility]; Service: US ECHO TRANSTHORACIC FOLLOWUP LIMITED WRIST SURGERY Right Family History Family History Problem Relation Age of Onset Heart disease Mother Lupus Mother Stroke Mother Arthrit (more content not included)...[facility]04-10-2025 History and physical note* Susan Thakur MD - 02/13/2025 8:20 PM EDT [facility] HISTORY AND PHYSICAL -- [facility] Patient Name: Radha Shafer : 1960 MR #: [id number] Admit Date: 02/13/2025 Physicians: No, Physician (Family); No ref. provider found (Referring) Radha Shafer is a 64 y.o. female patient of No, Physician with history of COPD on home oxygen, struct of sleep apnea, hypertension, chronic kidney disease, hypothyroidism, CPT deficiency presented to [facility] on 02/13/2025 with shortness of breath. Shortness [...] PROCEDURE; Surgeon: Jada Vargas MD; Location: [facility]; Service: Colorectal CARDIAC CATHETERIZATION N/A 09/26/2022 Procedure: Coronary Angiogram; Surgeon: Tor Long MD; Location: [facility]; Service: Cardiovascular CARDIOVASCULAR STRESS TEST CHOLECYSTECTOMY COLONOSCOPY with biopsies COLONOSCOPY N/A 02/17/2022 Procedure: COLONOSCOPY; Surgeon: Jada Vargas MD; Location: [facility]; Service: Colorectal EGD N/A 08/15/2022 Procedure: ESOPHAGOGASTRODUODENOSCOPY WITH BIOPSY; Surgeon: Tyshawn Santos MD; Location: Endo; Service: Gastroenterology GALLBLADDER HC LEFT HEART CATH N/A 09/26/2022 Procedure: Left Heart Cath; Surgeon: Tor Long MD; Location: [facility]; Service: Cardiovascular HYSTERECTOMY JOINT REPLACEMENT Left knee ORTHOPEDIC SURGERY r wrist surgery, left ankle, right rotator cuff ROTATOR CUFF REPAIR Right SIGMOIDOSCOPY FLEXIBLE N/A 06/23/2022 Procedure: SIGMOIDOSCOPY FLEXIBLE WITH BIOPSY; Surgeon: Tyshawn Santos MD; Location: [facility]; Service: Gastroenterology THYROIDECTOMY N/A 07/15/2015 Procedure: TOTAL THYROIDECTOMY; Surgeon: Lopez Alonso MD; Location: [facility]; Service: US ECHO TRANSTHORACIC FOLLOWUP [...] quittin.6 Smokeless Tobacco Never documented in this [id number] Procedure note* ED Procedure Note - Astrid [...] without acute dynamic changes, no STEMI. NSR. TX interval 144 ms. QRS 90 ms. BPM: 94 Clinical impression: normal ECG [id number] Emergency department Note* Mihaela Chavez RN - 02/13/2025 5:18 PM EDT Received call from Lab, states CPK result will be delayed d/t machine down for maintenance Dr Sanders updated [id number] Procedure note* ED Procedure Note - Astrid [...] ECG and sinus tachycardia Comments: Sinus tachycardia. TX interval 140 ms. QRS [address] and T wave abnormality. No STEMI. [id number] Physician Emergency department Note* Astrid Sanders DO - 02/13/2025 4:07 PM EDT EMERGENCY MEDICINE PROVIDER NOTE WELCOME TO [facility] NAME: Radha Shafer AGE: 64 y.o. SEX: female : 1960 ENCOUNTER DATE: 02/13/25 CSN: [id number] PCP: Erin, Physician History of Presenting Illness/Medical [...] was given 4 baby aspirin by EMS MOLDER APPRENTICE. No nitroglycerin. Patient states that she was [...] ear normal. Nose: Nose normal. Mouth/Throat: Lips: Excello. Mouth: Mucous membranes are moist. Eyes: General: [...] All other components within normal limits Narrative: [facility] has implemented the eGFR [...] Procedure Abnormality Status --------- ------ CBC Auto Differential[[id number]] Abnormal Final result Please view results for these tests on the individual orders. OBTAIN VENOUS BLOOD GASES AND PERFORM CPK TSH BASIC METABOLIC PANEL MAGNESIUM LEVEL CBC AND DIFFERENTIAL Narrative: The following orders were created for panel order CBC and Differential. Procedure Abnormality Status --------- ------ CBC Auto Differential[[id number]] Please view results for these tests on [...] PROCEDURE; Surgeon: Jada Vargas MD; Location: [facility]; Service: Colorectal CARDIAC CATHETERIZATION N/A 09/26/2022 Procedure: Coronary Angiogram; Surgeon: Tor Long MD; Location: [facility]; Service: Cardiovascular CARDIOVASCULAR STRESS TEST CHOLECYSTECTOMY COLONOSCOPY with biopsies COLONOSCOPY N/A 02/17/2022 Procedure: COLONOSCOPY; Surgeon: Jada Vargas MD; Location: [facility]; Service: Colorectal EGD N/A 08/15/2022 Procedure: ESOPHAGOGASTRODUODENOSCOPY WITH BIOPSY; Surgeon: Tyshawn Santos MD; Location: Endo; Service: Gastroenterology GALLBLADDER HC LEFT HEART CATH N/A 09/26/2022 Procedure: Left Heart Cath; Surgeon: Tor Long MD; Location: [facility]; Service: Cardiovascular HYSTERECTOMY JOINT REPLACEMENT Left knee ORTHOPEDIC SURGERY r wrist surgery, left ankle, right rotator cuff ROTATOR CUFF REPAIR Right SIGMOIDOSCOPY FLEXIBLE N/A 06/23/2022 Procedure: SIGMOIDOSCOPY FLEXIBLE WITH BIOPSY; Surgeon: Tyshawn Santos MD; Location: [facility]; Service: Gastroenterology THYROIDECTOMY N/A 07/15/2015 Procedure: TOTAL THYROIDECTOMY; Surgeon: Lopez Alonso MD; Location: [facility]; Service: US ECHO TRANSTHORACIC FOLLOWUP [...] total) by mouth daily with breakfast . kvxthelbsqk-styavdzqb-bzrhdpwe (Trelegy Ellipta) 200-62.5-25 mcg DsDv Inhale 1 [...] kidney disease) stage 3, GFR 30-59 ml/min ([facility]) 06/26/2022 Pain of upper abdomen 07/19/2022 Nausea 07/19/2022 Acute hypercapnic respiratory failure ([facility]) 09/02/2024 COPD exacerbation ([facility]) 09/21/2024 Resolved Ambulatory Problems Diagnosis Date Noted [...] over 89 ml/min) Lung nodule Neuromuscular disorder ([facility]) 2015 Obesity On home oxygen therapy Scoliosis [...] 5' 5 Wt 98 kg (216 lb) ToX191% BMI 35.94 kg/m In brief, patient is [...] level and did provide 500 ccIVF, unfortunately technical laboratory asst had called ED charge nurse to inform [...] Acid: 1.5 [ZW] 1716 Informed by ED returned goods repairer that lab team had called to inform [...] (HCC) 7. 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 Myalgia Discussed with: Hospitalist ED Disposition ED Disposition Hospitalize Condition -- Comment Reason for inpatient over two midnights: IV lasix . . Astrid Sanders DO ED Attending Physician [facility] (Please note that portions of this note may have been completed with a voice recognition program. 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 Astrid Sanders DO 02/13/25 9878 [id number] Emergency department Triage note* Astrid Connolly RN - 02/13/2025 3:40 PM EDT Pt reports sob and chest pain with hx of copd. Pt was given asa and duoneb treatment. Pt reports feeling much better after duoneb [id number] Emergency department Note* Marina Prado RN - 02/13/2025 3:40 PM EDT Bed: 25 Expected date: Expected time: Means of arrival: Comments: Nick [id number] Telephone encounter Note* Telephone Encounter - Julissa Parikh MA - 02/05/2025 7:33 AM EDT Received messaging requesting refill from [facility] Medication: Doljovi Last Office Visit: 06/03/2024 Next Scheduled Visit: Not scheduled Current Medication as of last visit (yes/no): yes [facility]04-02-2025 Miscellaneous Notes* Telephone Encounter - Julissa Parikh MA - 02/05/2025 7:33 AM EDT Received messaging requesting refill from [facility] Medication: Doljovi Last Office Visit: 06/03/2024 Next Scheduled Visit: Not scheduled Current Medication as of last visit (yes/no): yes [facility] Evaluation note* Diagnosis Onset [...] 16 1:12pm Chronic abdominal pain noneactive [facility] 2024 1:12pm Post-operative hypothyroidism noneac tive 2025 1:12pm Ventricular tachycardia noneactive [facility] 2024 1:12pm Essential hypertension noneactive [facility] 2024 1:12pm COPD (chronic obstructive pulmonary disease) noneactive April 16 1:12pm Obesity (BMI 30-39.9) noneactive Michael e 2024 1:12pm [facility] Work Phone: 1(391) 958-326502-20-2025 Evaluation note* Diagnosis Onset Date Resolution Status [...] cuff acute April 03, 2025 1 :50pm [facility] Work Phone: 1(216) 634-2825882786-27-6762 Evaluation note* Diagnosis Onset Date Resolution Status [...] apnea) chroni c April 04, 2025 1:38pm [facility] Work Phone: 1(730) 729-974002-20-2025 Evaluation note* Diagnosis Onset Date Resolution Status [...] noneactive 2025 1:12pm Chronic abdominal pain noneactive [facility] 2024 1:12pm Post-operative hypothyroidism noneac tive 2025 1:12pm Ventricular tachycardia noneactive [facility] 2024 1:12pm Essential hypertension noneactive [facility] 2024 1:12pm COPD (chronic obstructive pulmonary disease) noneactive April 16 1:12pm Obesity (BMI 30-39.9) noneactive [facility] 2024 1:12pm [facility] Work Phone: 1(566) 992-867502-20-2025 Evaluation note* Diagnosis Onset Date Resolution Status [...] noneac tive 2025 1:12pm Ventricular tachycardia noneactive [facility] 2024 1:12pm Essential hypertension noneactive 2024 1:12pm COPD (chronic obstructive pulmonary disease) noneactive April 16 1:12pm Obesity (BMI 30-39.9) noneactive Michael 2024 1:12pm [facility] Work Phone: 1(233) 318-265712-11-2024 Evaluation note* Diagnosis Onset Date Resolution Status [...] shoulder pain acute January 21, 2025 12:57pm [facility] Work Phone: 1(525) 207-809912-10-2024 Telephone encounter Note* Telephone Encounter - Cecille Johnson LPN - 10/15/2024 1:57 PM EST Images from the original note were not included. PA for Dojolvi approved by [employer] valid 11/06/2024- 11/05/2025 PA# [id number] Updated: Genetics PA calendar Medication comments Copy of approval letter sent to HIM [facility]12-10-2024 Miscellaneous Notes* Telephone Encounter - Cecille Johnson LPN - 10/15/2024 1:57 PM EST Images from the original note were not included. PA for Dojolvi approved by [employer] valid 11/06/2024- 11/05/2025 PA# [id number] Updated: Genetics PA calendar Medication comments Copy of approval letter sent to HIM * Telephone Encounter - Cecille Johnson LPN - 10/15/2024 10:43 AM EST Images from the original note were not included. Received PA renewal request for Dojolvi from [facility] as current PA mateo 11/05. PA submitted with office notes and labs via CMM. [facility] Telephone encounter Note* Telephone Encounter - Cecille Johnson LPN - 10/15/2024 10:43 AM EST Images from the original note were not included. Received PA renewal request for Dojolvi from [facility] as current PA mateo 11/05. PA submitted with office notes and labs via CMM. [facility]11-20-2024 History of Present illness Narrative* [...] Discharge Plan Status: In-basket message received from [email or web address]. Patient has [employer] Medicaid which will not [...] Alcazar MD - 09/24/2024 12:20 PM EST [facility] PROGRESS NOTE Assessment and Plan Radha Shafer is a 64 y.o. female smoker with background history of COPD and attendant chronic respiratory failure on 4 L NC at baseline, FELISA, HTN, CKD, hypothyroidism and CPT deficiency who presented to [facility] on 09/21/2024 with SOB. CXR showed no [...] deficiency CPK chronically elevated. She follows with [facility] Liberalize oral intake. Morbid obesity BMI [...] Larson MD - 09/23/2024 3:32 PM EST [id number] ENCOUNTER FOR HOME MEDICAL EQUIPMENT PATIENT: Radha Shafer : 1960 Statement of Care: I certify that Radha Shafer is under my care and that I, a Nurse Practitioner, Physician's Egg And Spice Mixer, or Resident working with me, had a gvfl-gg-vtue encounter with this patient today to evaluate and discuss the need for home medical equipment. I certify that based on the findings of this evaluation, which included but was not limited to the pevd-tq-yytd requirements, the following home medical equipment is medically necessary: Shower chairand grab bar. Signed by: Chanel Larson MD on 09/23/2024 * Chanel Larson MD - 09/23/2024 3:28 PM EST [facility] PROGRESS NOTE Assessment and Plan Radha Shafer is a 64 y.o. female smoker with background history of COPD and attendant chronic respiratory failure on 4 L NC at baseline, FELISA, HTN, CKD, hypothyroidism and CPT deficiency who presented to [facility] on 09/21/2024 with SOB. CXR showed no [...] deficiency CPK chronically elevated. She follows with [facility] Liberalize oral intake. Resolved acute medical [...] Larson MD - 09/22/2024 9:45 AM EST [facility] PROGRESS NOTE Assessment and Plan Assessment and Plan Radha Shafer is a 64 y.o. female smoker with background history of COPD and attendant chronic respiratory failure on 4 L NC at baseline, FELISA, HTN, CKD, hypothyroidism and CPT deficiency who presented to [facility] on 09/21/2024 with SOB. CXR showed no [...] deficiency CPK chronically elevated. She follows with [facility] CK 713. Continue gentle fluid hydration. [...] and affect, no agitation documented in this [id number] Miscellaneous Notes* Quick Note - Emy Strickland [...] nebulizer and MDI as needed. Discussed associated long-term issues with non compliant FELISA. * Plan [...] functioning Outcome: Partially Met documented in this [id number] Progress note* Quick Note - Emy Strickland RN - 09/25/2024 12:30 PM EST Charting of SN Caity Flores reviewed [id number] NoteHMS DISCHARGE SUMMARY -- [facility] Radha Shafer Admitted: 09/21/2024 Discharge Date: 09/25/24 PCP Handoff Recommended Outpatient Testing Follow-up with PCP Results Pending At Discharge Stool PCR Clinical Summary Radha Shafer is a 64 y.o. female smoker with background history of COPD and attendant chronic respiratory failure on 4 L NC at baseline, FELISA, HTN, CKD, hypothyroidism and CPT deficiency who presented to [facility] on 09/21/2024 with SOB. CXR showed no [...] deficiency CPK chronically elevated. She follows with [facility] Liberalize oral intake. Morbid obesity BMI [...] 1 (one) capsule ( (more content not included)...[facility] 09-25-2024 Hospital course Narrative* Jossie Alcazar MD - 09/25/2024 11:04 AM EST Images from the original note were not included. [facility] DISCHARGE SUMMARY -- [facility] Radha Shafer Admitted: 09/21/2024 Discharge Date: 09/25/24 PCP Handoff Recommended Outpatient Testing Follow-up with PCP Results Pending At Discharge Stool PCR Clinical Summary Radha Shafer is a 64 y.o. female smoker with background history of COPD and attendant chronic respiratory failure on 4 L NC at baseline, FELISA, HTN, CKD, hypothyroidism and CPT deficiency who presented to [facility] on 09/21/2024 with SOB. CXR showed no [...] deficiency CPK chronically elevated. She follows with [facility] Liberalize oral intake. Morbid obesity BMI [...] Trelegy Ellipta 200-62.5-25 mcg Dsdv Generic drug: aleiodbgcmv-bnjlrdtgz-lvxixouw Inhale 1 (one) Inhalation daily . Quantity: [...] on 09/25/24, 11:04 AM documented in this [id number] Plan of care note* Plan of Care [...] maximum level of psychosocial functioning Outcome: Met [id number] NoteHMS PROGRESS NOTE Assessment and Plan Radha Shafer is a 64 y.o. female smoker with background history of COPD and attendant chronic respiratory failure on 4 L NC at baseline, FELISA, HTN, CKD, hypothyroidism and CPT deficiency who presented to [facility] on 09/21/2024 with SOB. CXR showed no [...] deficiency CPK chronically elevated. She follows with [facility] Liberalize oral intake. Morbid obesity BMI [...] agitation AUTHENTICATED BY JOSSIE ALCAZAR ON 09/24/2024 12:24:12[facility] 09-24-2024 Progress note* Quick Note - Antionette [...] nebulizer and MDI as needed. Discussed associated machine long goods helper issues with non compliant FELISA. [id number] Plan of care note* Plan of Care [...] by Jaspreet Barnes RN Outcome: Partially Met [id number] Plan of care note* Plan of Care [...] level of psychosocial functioning Outcome: [facility]ially Met [facility]8223 Plan of care note* Plan of Care [...] level of psychosocial functioning Outcome: Partially Met [facility] HospitalJukhKfjbrk81-71-3120 QyuyVWXC-WE-HNQP ENCOUNTER FOR HOME MEDICAL EQUIPMENT PATIENT: Radha Shafer : 1960 Statement of Care: I certify that Radha Shafer is under my care and that I, a Nurse Practitioner, Physician's Egg And Spice Mixer, or Resident working with me, had a yika-hr-dhhl encounter with this patient today to evaluate and discuss the need for home medical equipment. I certify that based on the findings of this evaluation, which included but was not limited to the nepw-jv-bqri requirements, the following home medical equipment is medically necessary: Shower chair and grab bar. Signed by: Chanel Larson MD on 09/23/2024 AUTHENTICATED BY CHANEL LARSON, ON 09/23/2024 15:33:43[facility]11-18-2024 NoteHMS PROGRESS NOTE Assessment and Plan Radha Shafer is a 64 y.o. female smoker with background history of COPD and attendant chronic respiratory failure on 4 L NC at baseline, FELISA, HTN, CKD, hypothyroidism and CPT deficiency who presented to [facility] on 09/21/2024 with SOB. CXR showed no [...] deficiency CPK chronically elevated. She follows with [facility] Liberalize oral intake. Resolved acute medical [...] agitation AUTHENTICATED BY CHANEL LARSON, ON 09/23/2024 15:29:[address] [place], [place] [id number] Progress note* Quick Note - Brianna Tan, [...] within 6 days. JOLIE Chang, RASHEEDN, LD [id number] Consult note* Marsha Miguel, PHOSPHORIC ACID SUPERVISOR - 09/23/2024 11:46 AM ESTAssociated Order(s): IP CONSULT TO CARE MANAGEMENT Care Management Consult Note Date: 09/23/2024 Time: 11:56 AM Patient Name: Radha Shafer Date of : 1960 Reason for Consult: Discharge Plan: Plan A: Home Discharging Transportation Plan: Discharge Plan Status: Spoke with Dr. Larson. Patient was requesting to speak with mental health social worker. In to see patient. Patient [...] reports she follows with Dr. Gordon in [place] for primary care. Patient requesting grab bars, a shower chair, and a wedge for sleeping. No other needs identified at this time. Spoke with Aramis with [employer]. [employer] does not have wedge pillows. Secure chat sent to Dr. Larson regarding need for shower chair and grab bar. In-basket message sent to [employer]. Assessment and Background Information: Living Arrangements: Children [...] (!) Yes Location of chronic pain:: back [id number] Consult note* Marsha Migule LISW - 09/23/2024 11:46 AM ESTAssociated Order(s): IP CONSULT TO CARE MANAGEMENT Care Management Consult Note Date: 09/23/2024 Time: 11:56 AM Patient Name: Radha Shafer Date of : 1960 Reason for Consult: Discharge Plan: Plan A: Home Discharging Transportation Plan: Discharge Plan Status: Spoke with Dr. Larson. Patient was requesting to speak with mental health social worker. In to see patient. Patient [...] reports she follows with Dr. Gordon in [place] for primary care. Patient requesting grab bars, a shower chair, and a wedge for sleeping. No other needs identified at this time. Spoke with Aramis with [employer]. [employer] does not have wedge pillows. Secure chat sent to Dr. Larson regarding need for shower chair and grab bar. In-basket message sent to [employer]. Assessment and Background Information: Living Arrangements: Children [...] of chronic pain:: back documented in this [id number] Plan of care note* Plan of Care [...] level of psychosocial functioning Outcome: Partially Met [id number] NoteHMS PROGRESS NOTE Assessment and Plan Assessment and Plan Radha Shafer is a 64 y.o. female smoker with background history of COPD and attendant chronic respiratory failure on 4 L NC at baseline, FELISA, HTN, CKD, hypothyroidism and CPT deficiency who presented to [facility] on 09/21/2024 with SOB. CXR showed no [...] deficiency CPK chronically elevated. She follows with [facility] CK 713. Continue gentle fluid hydration. [...] agitation AUTHENTICATED BY CHANEL LARSON, ON 09/23/2024 15:32:03[facility]11-17-2024 Plan of care note* Plan of Care [...] level of psychosocial functioning Outcome: Partially Met [id number] Emergency department Note* Meaghan Butler RN - 09/21/2024 11:10 PM EST Report given to room 3718 nurse [id number] Emergency department Note* Meaghan Butler RN - 09/21/2024 11:10 PM EST Spoke with [facility]. Pt had methylprednisolone at 2110. Next dose to be given 8 hours later [id number] Emergency department Note* Meaghan Butler RN - 09/21/2024 11:10 PM EST Report given to room 3718 nurse * Meaghan Butler RN - 09/21/2024 11:10 PM EST Spoke with [facility]. Pt had methylprednisolone at 2110. Next dose [...] Talbot MD - 09/21/2024 8:43 PM EST [facility] ED note NAME: Radha Shafer 64 y.o. CSN: [id number] PCP: No, Physician History: Chief Complaint: Shortness [...] PROCEDURE; Surgeon: Jada Vargas MD; Location: [facility] Main OR; Service: Colorectal CARDIAC CATHETERIZATION N/A 09/26/2022 Procedure: Coronary Angiogram; Surgeon: Tor Long MD; Location: [facility]; Service: Cardiovascular CARDIOVASCULAR STRESS TEST CHOLECYSTECTOMY COLONOSCOPY with biopsies COLONOSCOPY N/A 02/17/2022 Procedure: COLONOSCOPY; Surgeon: Jada Vargas MD; Location: [facility]; Service: Colorectal EGD N/A 08/15/2022 Procedure: ESOPHAGOGASTRODUODENOSCOPY WITH BIOPSY; Surgeon: Tyshawn Santos MD; Location: [facility]; Service: Gastroenterology GALLBLADDER HC LEFT HEART CATH N/A 09/26/2022 Procedure: Left Heart Cath; Surgeon: Tor Long MD; Location: [facility]; Service: Cardiovascular HYSTERECTOMY JOINT REPLACEMENT Left knee ORTHOPEDIC SURGERY r wrist surgery, left ankle, right rotator cuff ROTATOR CUFF REPAIR Right SIGMOIDOSCOPY FLEXIBLE N/A 06/23/2022 Procedure: SIGMOIDOSCOPY FLEXIBLE WITH BIOPSY; Surgeon: Tyshawn Santos MD; Location: [facility]; Service: Gastroenterology THYROIDECTOMY N/A 07/15/2015 Procedure: TOTAL THYROIDECTOMY; Surgeon: Lopez Alonso MD; Location: [facility]; Service: US ECHO TRANSTHORACIC FOLLOWUP [...] Socioeconomic History Marital status: Occupational History 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 jvztrifgulx-llexbdury-beztsjir (Trelegy Ellipta) 200-62.5-25 mcg DsDv Inhale 1 [...] All other components within normal limits Narrative: [facility] has implemented the eGFR [...] Procedure Abnormality Status --------- ------ CBC Auto Differential[[id number]] Abnormal Final result Please view results for these tests on the individual orders. 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 Hx of colonic polyps 01/07/2022 Rectal prolapse 03/01/2022 Diarrhea 06/21/2022 Non-traumatic rhabdomyolysis 06/25/2022 KRISTIN (acute kidney injury) ([facility]) 06/26/2022 CKD (chronic kidney disease) stage 3, GFR 30-59 ml/min ([facility]) 06/26/2022 Pain of upper abdomen 07/19/2022 Nausea 07/19/2022 Acute hypercapnic respiratory failure ([facility]) 09/02/2024 Resolved Ambulatory Problems Diagnosis Date Noted No Resolved Ambulatory Problems Past Medical History: Diagnosis Date Anxiety Arthritis Back pain Bladder problem Cancer (HCC) Chronic pain disorder Colitis COPD (chronic obstructive pulmonary disease) ([facility]) Depression Diabetes (HCC) Diverticulosis Emphysema of lung [...] None Sally Talbot MD ED Attending Physician [facility] Emergency Department (Please note that portions of [...] date: Expected time: Means of arrival: Comments: [place] documented in this [id number] Emergency department Note* Meaghan Butler RN - 09/21/2024 10:14 PM EST Hourly rounding assessment completed on the patient. [x] Patient updated on plan of care [x] All comfort needs addressed [x] Patient updated on duration of visit All questions answered, patient denies further needs. Call light within reach. [id number] History and physical note* Nabila Chavez MD - 09/21/2024 10:01 PM EST [facility] HISTORY AND PHYSICAL -- [facility] Patient Name: Radha Shafer : 1960 MR #: [id number] Admit Date: 09/21/2024 Physicians: Erin, Physician (Family); No ref. provider found (Referring) Radha Shafer is a 64 y.o. female patient of Erin, Physician with history of COPD, chronic hypoxemic respiratory failure on 4L NC at baseline, hypothyroidism, CPT deficiency, HTN, CKD, FELISA presentedto [facility] on 09/21/2024 with shortness of breath. Assessment/plan [...] CPT deficiency, HTN, CKD, FELISA presented to [facility] on 09/21/2024 with shortness of breath. Patient [...] PROCEDURE; Surgeon: Jada Vargas MD; Location: [facility]; Service: Colorectal CARDIAC CATHETERIZATION N/A 09/26/2022 Procedure: Coronary Angiogram; Surgeon: Tor Long MD; Location: [facility]; Service: Cardiovascular CARDIOVASCULAR STRESS TEST CHOLECYSTECTOMY COLONOSCOPY with biopsies COLONOSCOPY N/A 02/17/2022 Procedure: COLONOSCOPY; Surgeon: Jada Vargas MD; Location: [facility]; Service: Colorectal EGD N/A 08/15/2022 Procedure: ESOPHAGOGASTRODUODENOSCOPY WITH BIOPSY; Surgeon: Tyshawn Santos MD; Location: Endo; Service: Gastroenterology GALLBLADDER HC LEFT HEART CATH N/A 09/26/2022 Procedure: Left Heart Cath; Surgeon: Tor Long MD; Location: [facility]; Service: Cardiovascular HYSTERECTOMY JOINT REPLACEMENT Left knee ORTHOPEDIC SURGERY r wrist surgery, left ankle, right rotator cuff ROTATOR CUFF REPAIR Right SIGMOIDOSCOPY FLEXIBLE N/A 06/23/2022 Procedure: SIGMOIDOSCOPY FLEXIBLE WITH BIOPSY; Surgeon: Tyshawn Santos MD; Location: Endo; Service: Gastroenterology THYROIDECTOMY N/A 07/15/2015 Procedure: TOTAL THYROIDECTOMY; Surgeon: Lopez Alonso MD; Location: [facility]; Service: US ECHO TRANSTHORACIC FOLLOWUP [...] normal coloration Psych: normal mood and affect [id number] NoteHMS HISTORY AND PHYSICAL -- [facility] Patient Name: Radha Shafer : 1960 MR #: [id number] Admit Date: 09/21/2024 Physicians: No, Physician (Family); No ref. provider found (Referring) Radha Shafer is a 64 y.o. female patient of No, Physician with history of COPD, chronic hypoxemic respiratory failure on 4L NC at baseline, hypothyroidism, CPT deficiency, HTN, CKD, FELISA presented to [facility] on 09/21/2024 with shortness of breath. Assessment/plan [...] CPT deficiency, HTN, CKD, FELISA presented to [facility] on 09/21/2024 with shortness of breath. Patient [...] PROCEDURE; Surgeon: Jada Vargas MD; Location: [facility]; Service: Colorectal CARDIAC CATHETERIZATION N/A 09/26/2022 Procedure: Coronary Angiogram; Surgeon: Tor Long MD; Location: [facility]; Service: Cardiovascular CARDIOVASCULAR STRESS TEST CHOLECYSTECTOMY COLONOSCOPY with biopsies COLONOSCOPY N/A 02/17/2022 Procedure: COLONOSCOPY; Surgeon: Jada Vargas MD; Location: [facility]; Service: Colorectal EGD N/A 08/15/2022 Procedure: ESOPHAGOGASTRODUODENOSCOPY WITH BIOPSY; Surgeon: Tyshawn Santos MD; Location: Endo; Service: Gastroenterology GALLBLADDER HC LEFT HEART CATH N/A 09/26/2022 Procedure: Left Heart Cath; Surgeon: Tor Long MD; Location: [facility]; Service: Cardiovascular HYSTERECTOMY (more content not included)...[facility]11-16-2024 History and physical note* Nabila Chavez MD - 09/21/2024 10:01 PM EST [facility] HISTORY AND PHYSICAL -- [facility] Patient Name: Radha Shafer : 1960 MR #: [id number] Admit Date: 09/21/2024 Physicians: No, Physician (Family); No ref. provider found (Referring) Radha Shafer is a 64 y.o. female patient of No, Physician with history of COPD, chronic hypoxemic respiratory failure on 4L NC at baseline, hypothyroidism, CPT deficiency, HTN, CKD, FELISA presentedto [facility] on 09/21/2024 with shortness of breath. Assessment/plan [...] CPT deficiency, HTN, CKD, FELISA presented to [facility] on 09/21/2024 with shortness of breath. Patient [...] PROCEDURE; Surgeon: Jada Vargas MD; Location: [facility]; Service: Colorectal CARDIAC CATHETERIZATION N/A 09/26/2022 Procedure: Coronary Angiogram; Surgeon: Tor Long MD; Location: [facility]; Service: Cardiovascular CARDIOVASCULAR STRESS TEST CHOLECYSTECTOMY COLONOSCOPY with biopsies COLONOSCOPY N/A 02/17/2022 Procedure: COLONOSCOPY; Surgeon: Jada Vargas MD; Location: [facility]; Service: Colorectal EGD N/A 08/15/2022 Procedure: ESOPHAGOGASTRODUODENOSCOPY WITH BIOPSY; Surgeon: Tyshawn Santos MD; Location: Endo; Service: Gastroenterology GALLBLADDER HC LEFT HEART CATH N/A 09/26/2022 Procedure: Left Heart Cath; Surgeon: Tor Long MD; Location: [facility]; Service: Cardiovascular HYSTERECTOMY JOINT REPLACEMENT Left knee ORTHOPEDIC SURGERY r wrist surgery, left ankle, right rotator cuff ROTATOR CUFF REPAIR Right SIGMOIDOSCOPY FLEXIBLE N/A 06/23/2022 Procedure: SIGMOIDOSCOPY FLEXIBLE WITH BIOPSY; Surgeon: Tyshawn Santos MD; Location: Endo; Service: Gastroenterology THYROIDECTOMY N/A 07/15/2015 Procedure: TOTAL THYROIDECTOMY; Surgeon: Lopez Alonso MD; Location: [facility]; Service: US ECHO TRANSTHORACIC FOLLOWUP [...] normal mood and affect documented in this [id number] Emergency department Note* Meaghan Butler RN - 09/21/2024 9:50 PM EST Hourly rounding assessment completed on the patient. [x] Patient updated on plan of care [x] All comfort needs addressed [x] Patient updated on duration of visit All questions answered, patient denies further needs. Call light within reach. [id number] Emergency department Note* Delmy Brock RRT - 09/21/2024 9:14 PM EST RT at bedside for ABG. Results given to . BiPAP initiated 21/04 rate of 18, FiO2 of 35%. Patient does state she wears 4L O2 at home around the clock and is noncompliant with her home CPAP.Patient educated on the importance of wearing her CPAP at night regularly. [id number] Physician Emergency department Note* Sally Talbot MD - 09/21/2024 8:43 PM EST [facility] ED note NAME: Radha Shafer 64 y.o. CSN: [id number] PCP: No, Physician History: Chief Complaint: Shortness [...] PROCEDURE; Surgeon: Jada Vargas MD; Location: [facility]; Service: Colorectal CARDIAC CATHETERIZATION N/A 09/26/2022 Procedure: Coronary Angiogram; Surgeon: Tor Long MD; Location: [facility]; Service: Cardiovascular CARDIOVASCULAR STRESS TEST CHOLECYSTECTOMY COLONOSCOPY with biopsies COLONOSCOPY N/A 02/17/2022 Procedure: COLONOSCOPY; Surgeon: Jada Vargas MD; Location: [facility]; Service: Colorectal EGD N/A 08/15/2022 Procedure: ESOPHAGOGASTRODUODENOSCOPY WITH BIOPSY; Surgeon: Tyshawn Santos MD; Location: Endo; Service: Gastroenterology GALLBLADDER HC LEFT HEART CATH N/A 09/26/2022 Procedure: Left Heart Cath; Surgeon: Tor Long MD; Location: [facility]; Service: Cardiovascular HYSTERECTOMY JOINT REPLACEMENT Left knee ORTHOPEDIC SURGERY r wrist surgery, left ankle, right rotator cuff ROTATOR CUFF REPAIR Right SIGMOIDOSCOPY FLEXIBLE N/A 06/23/2022 Procedure: SIGMOIDOSCOPY FLEXIBLE WITH BIOPSY; Surgeon: Tyshawn Santos MD; Location: Endo; Service: Gastroenterology THYROIDECTOMY N/A 07/15/2015 Procedure: TOTAL THYROIDECTOMY; Surgeon: Lopez Alonso MD; Location: [facility]; Service: US ECHO TRANSTHORACIC FOLLOWUP [...] Socioeconomic History Marital status: Occupational History Occupation: [employer] Occupation: [employer] worker Tobacco Use Smoking status: Former Current [...] Resource Strain: Medium Risk (06/03/2024) Received from [facility] Overall Financial Resource Strain (CARDIA) Difficulty of [...] (two) sprays into each nostril daily . nydihhpmaxt-xpjwcsfdx-qrmxtvcm (Trelegy Ellipta) 200-62.5-25 mcg DsDv Inhale 1 [...] All other components within normal limits Narrative: [facility] has implemented the eGFR [...] Procedure Abnormality Status --------- ------ CBC Auto Differential[[id number]] Abnormal Final result Please view results for [...] Non-traumatic rhabdomyolysis 06/25/2022 KRISTIN (acute kidney injury) ([facility]) 06/26/2022 CKD (chronic kidney disease) stage 3, GFR 30-59 ml/min ([facility]) 06/26/2022 Pain of upper abdomen 07/19/2022 Nausea 07/19/2022 Acute hypercapnic respiratory failure ([facility]) 09/02/2024 Resolved Ambulatory Problems Diagnosis Date Noted [...] over 89 ml/min) Lung nodule Neuromuscular disorder ([facility]) 2015 Obesity On home oxygen therapy Scoliosis [...] None Sally Talbot MD ED Attending Physician [facility] Emergency Department (Please note that portions of this note have been completed with a voice recognition software. Efforts were made to correct any errors, but occasionally words are mis-transcribed.) Sally Talbot MD 09/21/242158 [id number] Emergency department Note* Meaghan Butler RN - 09/21/2024 8:04 PM EST PT PLACED ON 4L FOR O2 AT 84% ON RA. [address]HmsiJbrpfh61-07-4513 Emergency department Note* Meaghan Butler RN - 09/21/2024 8:00 PM EST Hourly rounding assessment completed on the patient. [x] Patient updated on plan of care [x] All comfort needs addressed [x] Patient updated on duration of visit All questions answered, patient denies further needs. Call light within reach. [id number] Emergency department Triage note* Meaghan Butler RN - 09/21/2024 7:53 PM EST PT ARRIVED VIA EMS WITH C/O SOB. 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 PT STATES THAT SHE STARTED WITH A HEADACHE THEN HEAVINESS IN CHEST HEAVINESS. PT ARRIVED TO ED ON 4L NC [id number] Emergency department Note* Selena Simms RN - 09/21/2024 7:52 PM EST Bed: 15 Expected date: Expected time: Means of arrival: Comments: Alireza [id number] NoteHeart & Vascular Clinic Note [facility] Visit Date: [...] #HTN #HLD #FELISA #ECHO; 04/2024. Done in [address]. LVEF-60% PLAN: --c/w metoprolol --pursue a cardiac [...] PROCEDURE; Surgeon: Jada Vargas MD; Location: [facility]; Service: Colorectal CARDIAC CATHETERIZATION N/A 09/26/2022 Procedure: Coronary Angiogram; Surgeon: Tor Long MD; Location: [facility]; Service: Cardiovascular CARDIOVASCULAR STRESS TEST CHOLECYSTECTOMY COLONOSCOPY with biopsies COLONOSCOPY N/A 02/17/2022 Procedure: COLONOSCOPY; Surgeon: Jada Vargas MD; Location: [facility]; Service: Colorectal EGD N/A 08/15/2022 Procedure: ESOPHAGOGASTRODUODENOSCOPY WITH BIOPSY; Surgeon: Tyshawn Santos MD; Location: [facility]; Service: Gastroenterology GALLBLADDER HC LEFT HEART CATH N/A 09/26/2022 Procedure: Left Heart Cath; Surgeon: Tor Long MD; Location: [facility]; Service: Cardiovascular HYSTERECTOMY JOINT REPLACEMENT Left knee ORTHOPEDIC SURGERY r wrist surgery, left ankle, right rotator cuff ROTATOR CUFF REPAIR Right SIGMOIDOSCOPY FLEXIBLE N/A 06/23/2022 Procedure: SIGMOIDOSCOPY FLEXIBLE WITH BIOPSY; Surgeon: Tyshawn Santos MD; Location: Endo; Service: Gastroenterology THYROIDECTOMY N/A 07/15/2015 Procedure: TOTAL THYROIDECTOMY; Surgeon: Lopez Alonso MD; Location: [facility]; Service: US ECHO TRANSTHORACIC FOLLOWUP [...] Socioeconomic History Marital status: Occupational History Occupation: [employer] 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 Tobacco Use Smoking status: [...] Marijuana Comment: currently (more content not included)...[facility] 09-18-2024 History of Present illness Narrative* Cb Boudreaux MD - 09/18/2024 1:51 PM EST Heart & Vascular Clinic Note [facility] Visit Date: [...] #HTN #HLD #FELISA #ECHO; 04/2024. Done in [address]. LVEF-60% PLAN: --c/w metoprolol --pursue a cardiac [...] PROCEDURE; Surgeon: Jada Vargas MD; Location: [facility]; Service: Colorectal CARDIAC CATHETERIZATION N/A 09/26/2022 Procedure: Coronary Angiogram; Surgeon: Tor Long MD; Location: [facility]; Service: Cardiovascular CARDIOVASCULAR STRESS TEST CHOLECYSTECTOMY COLONOSCOPY with biopsies COLONOSCOPY N/A 02/17/2022 Procedure: COLONOSCOPY; Surgeon: Jada Vargas MD; Location: [facility]; Service: Colorectal EGD N/A 08/15/2022 Procedure: ESOPHAGOGASTRODUODENOSCOPY WITH BIOPSY; Surgeon: Tyshawn Santos MD; Location: Endo; Service: Gastroenterology GALLBLADDER HC LEFT HEART CATH N/A 09/26/2022 Procedure: Left Heart Cath; Surgeon: Tor Long MD; Location: [facility]; Service: Cardiovascular HYSTERECTOMY JOINT REPLACEMENT Left knee ORTHOPEDIC SURGERY r wrist surgery, left ankle, right rotator cuff ROTATOR CUFF REPAIR Right SIGMOIDOSCOPY FLEXIBLE N/A 06/23/2022 Procedure: SIGMOIDOSCOPY FLEXIBLE WITH BIOPSY; Surgeon: Tyshawn Santos MD; Location: Endo; Service: Gastroenterology THYROIDECTOMY N/A 07/15/2015 Procedure: TOTAL THYROIDECTOMY; Surgeon: Lopez Alonso MD; Location: [facility]; Service: US ECHO TRANSTHORACIC FOLLOWUP [...] Socioeconomic History Marital status: Occupational History 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 DFRPYEOEOXC-XLCAGMMPV-LXEFGFKD (TRELEGY ELLIPTA) 200-62.5-25 MCG DSDV Inhale 1 [...] See above Cb Boudreaux documented in this [id number] Instructions* Patient Instructions* Andree Veras RN - 09/09/2024 2:32 PM EST Images from the original note were not included. It was our pleasure to see you in EP Clinic today. Please contact: JASON Wall at [phone] JASON Candelario at [phone] FERMIN Downs RMA with questions, concerns, or [...] or any other implanted or prosthetic medical records specialist. You have an intrauterine device (IUD) in [...] our office before restarting the medication at [phone]. Please bring your morning medications with you. [...] out of your body. documented in this [id number] History of Present illness Narrative* Jaspreet Barnes [...] Plan Status: Initial assessment completed by JASON Chairezchange analyst, in the emergency department. Please refer to her note. Care Management will continue to follow. 1044- Patient is discharged home. Assessment and Background Information: documented in this [id number] Miscellaneous Notes* Plan of Care - Jaspreet [...] Enviroment Outcome: Partially Met documented in this [id number] Plan of care note* Plan of Care - Jaspreet Barnes RN - 09/03/2024 3:32 PM EDT Problem: Actual or potential alteration in health Goal: Absence of healthcare acquired conditions Outcome: Partially Met Goal: Knowledge of Interdisciplinary Plan of Care Outcome: Partially Met Goal: Knowledge of Enviroment Outcome: Partially Met [id number] Hospital course Narrative* Ramírez Cunningham MD - 09/03/2024 9:38 AM EDT Images from the original note were not included. [facility] DISCHARGE SUMMARY -- [facility] Radha Shafer Admitted: 09/02/2024 Discharge Date: 09/03/24 PCP Handoff Recommended Outpatient Testing Follow up with direct mail marketer Results Pending At Discharge none Clinical Summary [...] patient brings a piece of paper from direct mail marketer that says check cpk and creatine every admission - [place] [address] + but if normal creatine consider outpatient [...] Trelegy Ellipta 200-62.5-25 mcg Dsdv Generic drug: ovjuthybmvr-ssludaypb-aapbkkwn Inhale 1 (one) Inhalation daily . Quantity: [...] on 09/03/24, 9:38 AM documented in this [id number] Progress note* Quick Note - Kayla Mujica RN - 09/03/2024 1:25 AM EDT Patient provides paper regarding POC for disease. Patient demanding IVF at this time. This RN attempts to explain reasoning for no IVF at this time; patient remains adamant. RN advises patient to speak with rounding physician regarding POC. Stable at this time; will monitor. [id number] Plan of care note* Plan of Care - Kayla Mujica RN - 09/02/2024 10:57 PM EDT Problem: Actual or potential alteration in health Goal: Absence of healthcare acquired conditions Outcome: Met Goal: Knowledge of Interdisciplinary Plan of Care Outcome: Met Goal: Knowledge of Enviroment Outcome: Met [id number] Progress note* Quick Note - Kayla Mujica RN - 09/02/2024 8:00 PM EDT Patient medications verified with patient. Patient takes dojolvi TID; patient supplied medication sent to pharmacy for verification. Per patient,takes zanaflex prn at bed time; pharmacy notified of patient schedule. [id number] Plan of care note* Plan of Care [...] by Cherie Dias RN Outcome: Partially Met [id number] Plan of care note* Plan of Care - Cherie Dias RN - 09/02/2024 6:30 PM EDT Problem: Actual or potential alteration in health Goal: Absence of healthcare acquired conditions Outcome: Partially Met Goal: Knowledge of Interdisciplinary Plan of Care Outcome: Partially Met Goal: Knowledge of Enviroment Outcome: Partially Met [id number] Consult note* Mihaela Carroll RN - 09/02/2024 [...] that her PCP is Dr. Tomas in [place] and her insurance is [facility] managed medicare and medicaid. Patient stated that [...] a baby due in 9 days, offered [facility] services is needed and granddaughter declined [...] routine activities due to chronic pain:: Yes [id number] Emergency department Note* Tram Perez RN - 09/02/2024 3:51 PM EDT Report called to receiving RN. All questions answered [id number] Consult note* Mihaela Carroll RN - 09/02/2024 [...] that her PCP is Dr. Tomas [place] and her insurance is [facility] managed medicare and medicaid. Patient stated that [...] a baby due in 9 days, offered [facility] services is needed and granddaughter declined [...] to chronic pain:: Yes documented in this [id number] Emergency department Note* Tram Perez RN - [...] CHAND NOTIFIED. FAMILY CAN BE REACHED AT [phone]. * Anna Dutton PSA - 09/02/2024 1:36 PM EDT PT'S GRAND DAUGHTER MARYLU CALLED FOR AN UPDATE. SHE CAN BE CALLED AT [phone]. JASON CHAND NOTIFIED. * Tram Perez RN [...] and tripoding d/t SOB documented in this [id number] Emergency department Note* Tram Perez RN - 09/02/2024 2:34 PM EDT Pt family member Marylu called and updated. All questions answered. She states she will talk to additional family members and pass info along. [id number] Emergency department Note* Anna Dutton PSA - 09/02/2024 2:17 PM EDT PT'S DAUGHTER LUIS CALLED FOR AN UPDATE. JASON CHAND NOTIFIED. FAMILY CAN BE REACHED AT [phone]. [id number] Emergency department Note* Anna Dutton PSA - 09/02/2024 1:36 PM EDT PT'S GRAND DAUGHTER MARYLU CALLED FOR AN UPDATE. SHE CAN BE CALLED AT [phone]. JASON CHAND NOTIFIED. [id number] History and physical note* Nabila Lama MD - 09/02/2024 12:39 PM EDT [facility] HISTORY AND PHYSICAL -- [facility] Patient Name: Radha Shafer : 1960 MR #: [id number] Admit Date: 09/02/2024 Physicians: No, Physician (Family); No ref. provider found (Referring) Radha Shafer is a 64 y.o. female patient of No, Physician with history of COPD chronic hypoxemic respiratory failure on 4 L of oxygen at home also history of hypertension myopathy with enzyme deficiency, hypothyroidism, GERD, hypertension, obesity and obstructive sleep apnea on CPAP presented to [facility] on 09/02/2024 with worsening shortness of breath [...] obstructive sleep apnea on CPAP presented to [facility] on 09/02/2024 with worsening shortness of breath [...] Colitis sigmoid COPD (chronic obstructive pulmonary disease) ([facility]) 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HCC) Per pt. - Depression Diabetes (HCC) Diverticulosis Emphysema of lung (HCC) GERD (gastroesophageal reflux disease) Hepatic steatosis History of echocardiogram History of stress test Hypertension Hypothyroidism Kidney disease, chronic, stage I (GFR over 89 ml/min) stage 3 Lung nodule Neuromuscular disorder ([facility]) 2015 I have cpt2 difficency Obesity On home oxygen therapy 2L via NC, PRN with walking, activity Scoliosis 03/2022 Sleep apnea noncompliant with CPAP; uses home oxygen Sleep apnea, obstructive Past Surgical History Past Surgical History: Procedure Laterality Date ALTEMEIER PROCEDURE N/A 03/30/2022 Procedure: ALTEMEIER PROCEDURE; Surgeon: Jada Vargas MD; Location: [facility]; Service: Colorectal CARDIAC CATHETERIZATION N/A 09/26/2022 Procedure: Coronary Angiogram; Surgeon: Tor Long MD; Location: [facility]; Service: Cardiovascular CARDIOVASCULAR STRESS TEST CHOLECYSTECTOMY COLONOSCOPY with biopsies COLONOSCOPY N/A 02/17/2022 Procedure: COLONOSCOPY; Surgeon: Jada Vargas MD; Location: [facility]; Service: Colorectal EGD N/A 08/15/2022 Procedure: ESOPHAGOGASTRODUODENOSCOPY WITH BIOPSY; Surgeon: Tyshawn Santos MD; Location: [facility]; Service: Gastroenterology GALLBLADDER HC LEFT HEART CATH N/A 09/26/2022 Procedure: Left Heart Cath; Surgeon: Tor Long MD; Location: [facility]AFETY MANAGER; Service: Cardiovascular HYSTERECTOMY JOINT REPLACEMENT Left knee ORTHOPEDIC SURGERY r wrist surgery, left ankle, right rotator cuff ROTATOR CUFF REPAIR Right SIGMOIDOSCOPY FLEXIBLE N/A 06/23/2022 Procedure: SIGMOIDOSCOPY FLEXIBLE WITH BIOPSY; Surgeon: Tyshawn Santos MD; Location: Endo; Service: Gastroenterology THYROIDECTOMY N/A 07/15/2015 Procedure: TOTAL THYROIDECTOMY; Surgeon: Lopez Alonso MD; Location: [facility]; Service: US ECHO TRANSTHORACIC FOLLOWUP [...] normal coloration Psych: normal mood and affect [id number] History and physical note* Nabila Lama MD - 09/02/2024 12:39 PM EDT [facility] HISTORY AND PHYSICAL -- [facility] Patient Name: Radha Shafer : 1960 MR #: [id number] Admit Date: 09/02/2024 Physicians: No, Physician (Family); No ref. provider found (Referring) Radha Shafer is a 64 y.o. female patient of No, Physician with history of COPD chronic hypoxemic respiratory failure on 4 L of oxygen at home also history of hypertension myopathy with enzyme deficiency, hypothyroidism, GERD, hypertension, obesity and obstructive sleep apnea on CPAP presented to [facility] on 09/02/2024 with worsening shortness of breath [...] obstructive sleep apnea on CPAP presented to [facility] on 09/02/2024 with worsening shortness of breath [...] PROCEDURE; Surgeon: Jada Vargas MD; Location: [facility]; Service: Colorectal CARDIAC CATHETERIZATION N/A 09/26/2022 Procedure: Coronary Angiogram; Surgeon: Tor Long MD; Location: [facility]; Service: Cardiovascular CARDIOVASCULAR STRESS TEST CHOLECYSTECTOMY COLONOSCOPY with biopsies COLONOSCOPY N/A 02/17/2022 Procedure: COLONOSCOPY; Surgeon: Jada Vargas MD; Location: [facility]; Service: Colorectal EGD N/A 08/15/2022 Procedure: ESOPHAGOGASTRODUODENOSCOPY WITH BIOPSY; Surgeon: Tyshawn Santos MD; Location: Endo; Service: Gastroenterology GALLBLADDER HC LEFT HEART CATH N/A 09/26/2022 Procedure: Left Heart Cath; Surgeon: Tor Long MD; Location: [facility]; Service: Cardiovascular HYSTERECTOMY JOINT REPLACEMENT Left knee ORTHOPEDIC SURGERY r wrist surgery, left ankle, right rotator cuff ROTATOR CUFF REPAIR Right SIGMOIDOSCOPY FLEXIBLE N/A 06/23/2022 Procedure: SIGMOIDOSCOPY FLEXIBLE WITH BIOPSY; Surgeon: Tyshawn Santos MD; Location: [facility]; Service: Gastroenterology THYROIDECTOMY N/A 07/15/2015 Procedure: TOTAL THYROIDECTOMY; Surgeon: Lopez Alonso MD; Location: [facility]; Service: US ECHO TRANSTHORACIC FOLLOWUP [...] normal mood and affect documented in this [id number] Emergency department Note* Tram Perez RN - 09/02/2024 12:00 PM EDT Hourly rounding assessment completed on the patient. [x] Patient updated on plan of care [x] All comfort needs addressed [x] Patient updated on duration of visit All questions answered, patient denies further needs. Call light within reach. [id number] Emergency department Triage note* Tram Perez RN - 09/02/2024 11:23 AM EDT Pt from orthopedic office. Pt c/o SOB. Pt wears 4lpm PRN at home, presented to ED on RA. Pt was 77%on RA. Pt with non productive cough. Placed on 6lpm NC, O2 sat improved to 99%. Pt unable to speak in full sentences and tripoding d/t SOB [id number] Telephone encounter Note* Telephone Encounter - Raya Dutton MA - 03/06/2024 12:08 PM EDT Received refill request from [facility] for Levocarnitine. Last OV: 02/13/23 Last Labs: 02/13/23 Next OV: 06/03/24 Set up request for ePrescribe. [facility]05-01-2024 Miscellaneous Notes* Telephone Encounter - Raya Dutton MA - 03/06/2024 12:08 PM EDT Received refill request from [facility] for Levocarnitine. Last OV: 02/13/23 Last Labs: 02/13/23 Next OV: 06/03/24 Set up request for ePrescribe. [facility] in [facility]24 Telephone encounter Note* Telephone Encounter - Cecille Johnson LPN - 01/29/2024 9:34 AM EDT Received refill request from [facility] for Dojolvi Last OV: 02/13/23 Last Labs: 02/13/23 Next OV: 02/12/24 Set up request for ePrescribe. [facility]03-25-2024 Miscellaneous Notes* Telephone Encounter - Cecille Johnson LPN - 01/29/2024 9:34 AM EDT Received refill request from [facility] for Dojolvi Last OV: 02/13/23 Last Labs: 02/13/23 Next OV: 02/12/24 Set up request for ePrescribe. documented in this encounterDay[facility]12-12-2023 Telephone encounter Note* Telephone Encounter - Meliza Rust - 10/17/2023 8:08 AM EST Received fax from [facility] put in the metbolic box. [facility]12-12-2023 Miscellaneous Notes* Telephone Encounter - Meliza Rust - 10/17/2023 8:08 AM EST Received fax from [facility] put in the metbolic box. documented in this encounterDayton [facility]12-11-2023 History of Present illness Narrative* [...] PM EST [facility] [address] ([address]) [facility] [address] [facility] [id number] Radha Shafer is a 63 [...] improve. Rivas Jules MD documented in this [id number] Miscellaneous Notes* Telephone Encounter - Jada Glez - 02/27/2023 2:27 PM EDT Called to schedule a FU No answer Left message and recall to schedule from documented [facility] [facility]23 Telephone encounter Note* Telephone Encounter - Jada Glez - 02/27/2023 2:27 PM EDT Called to schedule a FU No answer Left message and recall to schedule from [facility]04-20-2023 Telephone encounter Note* Telephone Encounter - Elisabeth Matamoros MS, RD/LD - 02/23/2023 9:05 AM EDT Called Radha regarding her diet. She said she no longer had any questions for the dietitian. Encouraged her to call if she needed meal ideas or help with picking food. Gave her RD direct number as well. [facility]04-20-2023 Miscellaneous Notes* Telephone Encounter - Elisabeth Matamoros MS, RD/LD - 02/23/2023 9:05 AM EDT Called Radha regarding her diet. She said she no longer had any questions for the dietitian. Encouraged her to call if she needed meal ideas or help with picking food. Gave her RD direct number as well. documented in this encounter[facility] Telephone encounter Note* Telephone Encounter - Rocio Nickerson LPN - 12/06/2022 3:25 PM EST Called and spoke with Kevin at [employer] ([phone]), informed them of my conversation with the patient. Kevin requested we contact them back when the patient restarts the medication. [facility]01-31-2023 Miscellaneous Notes* Telephone Encounter - Rocio Nickerson LPN - 12/06/2022 3:25 PM EST Called and spoke with Kevin at [employer] ([phone]), informed them of my conversation with the [...] EST Received phone call from Selena at [facility]. Selena informed me that the patient had declined the refill request for Dojolivi because she was told by the provider to stop the medication due to diarrhea. Will contact the pharmacy with an update after speaking to the metabolic provider. Call back number [phone] documented in this [facility]Day[facility] Telephone encounter Note* Telephone [...] she restarts the medication, patient voiced understanding. [facility]01-31-2023 Telephone encounter Note* Telephone Encounter - Rocio Nickerson LPN - 12/06/2022 1:42 PM EST Received phone call from Selena at [facility]. Selena informed me that the patient had declined the refill request for Dojolivi because she was told by the provider to stop the medication due to diarrhea. Will contact the pharmacy with an update after speaking to the metabolic provider. Call back number [phone] [facility]01-30-2023 History of Present illness Narrative* Khadra Perdomo MA - 12/05/2022 10:17 AM EST Refill request for DOJOLVI. documented in this [facility]Day[facility]01-[facility]-2023 Telephone encounter Note* Telephone Encounter - Jada Glez - 11/23/2022 4:04 PM EST Third attempt and sent patient mychart message to reschedule. No answer, and patient has not read message. Sending letter in the mail. [facility]01-18-2023 Miscellaneous Notes* Telephone Encounter - Jada Glez - 11/23/2022 4:04 PM EST Third attempt and sent patient mychart message to reschedule. No answer, and patient has not read message. Sending letter in the mail. documented in this [facility]Day[facility]10-25-2022 Telephone encounter Note* Telephone Encounter - Shakira Greard MD - 08/30/2022 12:38 PM EDT Previously call from [facility] regarding patient not eating (when we [...] nothing too concerning heart cabrera. Expressed that CO in females are notlike the typical Mis [...] understanding. Will await call back next week. [facility] Work Phone: [phone]) [phone] Miscellaneous Notes* Telephone Encounter - Shakira Gerard MD - 08/30/2022 12:38 PM EDT Previously call from [facility] regarding patient not eating (when we [...] nothing too concerning heart cabrera. Expressed that CO in females are notlike the typical Mis [...] call back next week. documented in this encounterW[facility]'s [id number] History of Present illness Narrative* Debra Rosalvayuniel Adamson, WOLF HUNTER - 07/19/2022 2:57 PM EDT Radha Benitez [...] PROCEDURE; Surgeon: Jada Vargas MD; Location: [facility]; Service: Colorectal CARDIOVASCULAR STRESS TEST CHOLECYSTECTOMY COLONOSCOPY with biopsies COLONOSCOPY N/A 02/17/2022 Procedure: COLONOSCOPY; Surgeon: Jada Vargas MD; Location: [facility]; Service: Colorectal GALLBLADDER HYSTERECTOMY JOINT REPLACEMENT Left knee ORTHOPEDIC SURGERY r wrist surgery, left ankle, right rotator cuff ROTATOR CUFF REPAIR Right SIGMOIDOSCOPY FLEXIBLE N/A 06/23/2022 Procedure: SIGMOIDOSCOPY FLEXIBLE WITH BIOPSY; Surgeon: Tyshawn Santos MD; Location: Endo; Service: Gastroenterology THYROIDECTOMY N/A 07/15/2015 Procedure: TOTAL THYROIDECTOMY; Surgeon: Lopez Alonso MD; Location: [facility]; Service: US ECHO TRANSTHORACIC FOLLOWUP LIMITED WRIST SURGERY Right Social History: Social History Socioeconomic History Marital status: Occupational History 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 16 g 3 mkvhsdgkwwm-xhejmvvef-efxqtyhr (Trelegy Ellipta) 200-62.5-25 mcg DsDv Inhale 1 [...] scheduled for EGD with Dr. Santos at [facility] on 08/15/2022 at 12:00PM. Debra Adamson CNP documented in this [id number] History of Present illness Narrative* Estrada Garcia MD - 07/08/2022 11:45 AM EDT [facility] [address] [facility] [address] [facility] [id number] Name: Radha Shafer Age: 62 y.o. : [...] was has not followed with her old pilot so has been going without any inhalers. [...] to episodic myopathy. She is treated at [facility]. Past Medical History: Diagnosis Date Anxiety [...] PROCEDURE; Surgeon: Jada Vargas MD; Location: [facility]; Service: Colorectal CARDIOVASCULAR STRESS TEST CHOLECYSTECTOMY COLONOSCOPY with biopsies COLONOSCOPY N/A 02/17/2022 Procedure: COLONOSCOPY; Surgeon: Jada Vargas MD; Location: [facility]; Service: Colorectal GALLBLADDER HYSTERECTOMY JOINT REPLACEMENT Left knee ORTHOPEDIC SURGERY r wrist surgery, left ankle, right rotator cuff ROTATOR CUFF REPAIR Right SIGMOIDOSCOPY FLEXIBLE N/A 06/23/2022 Procedure: SIGMOIDOSCOPY FLEXIBLE WITH BIOPSY; Surgeon: Tyshawn Santos MD; Location: Endo; Service: Gastroenterology THYROIDECTOMY N/A 07/15/2015 Procedure: TOTAL THYROIDECTOMY; Surgeon: Lopez Alonso MD; Location: [facility]; Service: US ECHO TRANSTHORACIC FOLLOWUP [...] Socioeconomic History Marital status: Occupational History 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 nzbipidfwgk-ozgkekmgq-phbamqkd (Trelegy Ellipta) 200-62.5-25 mcg DsDv Inhale 1 [...] weeks Estrada Garcia MD documented in this [id number] Hospital Discharge instructions * Discharge Instr - Other Orders* Angela Davila RN - 06/29/2022 11:01 AM EDT - The telecommunications switch technician's office will be contacting you after you leave to schedule a follow up appointment. * Attachments The following attachments cannot be sent through Care Everywhere. * Diarrhea (Nigerian) documented in this [id number] Hospital course Narrative* Leodan Geronimo MD - 06/29/2022 10:39 AM EDT Images from the original note were not included. [facility] DISCHARGE SUMMARY Radha Shafer Admitted: 06/21/2022 Discharge Date: 06/29/22 PCP Handoff Recommended Outpatient Testing Follow with GI for EGD Results Pending At Discharge None Clinical Summary Radha Shafer is a 62 y.o. female patient of Jonathan Rutherford CNP with history of chronic kidney disease stage III, hypertension, rectal prolapse s/p surgery at [place] on March 2022, anemia, thyroid cancer s/p [...] Trelegy Ellipta 200-62.5-25 mcg Dsdv Generic drug: xzyfdlktcqb-rljspnlbb-esriiqyx Inhale 1 (one) Inhalation daily . Quantity: [...] on 06/29/22, 10:39 AM documented in this [id number] History of Present illness Narrative* Leodan Geronimo MD - 06/28/2022 11:46 AM EDT [facility] PROGRESS NOTE Assessment and Plan Radha Shafer is a 62 y.o. female patient of Jonathan Rutherford CNP with history of chronic kidney disease stage III, hypertension, rectal prolapse s/p surgery at [place] on March 2022, anemia, thyroid cancer s/p [...] clinical information: rectal prolapse s/p surgery at [place] on March 2022 who presented to the [...] to follow as needed., while in-house. Office [phone] * Leodan Geronimo MD - 06/27/2022 11:43 AM EDT [facility] PROGRESS NOTE Assessment and Plan Radha Shafer is a 62 y.o. female patient of Jonathan Rutherford CNP with history of chronic kidney disease stage III, hypertension, rectal prolapse s/p surgery at [place] on March 2022, anemia, thyroid cancer s/p [...] Full Code Quality Measures DVT Prophylaxis: SCDs Idaz Catheter: none Disposition Discharge Location: home Estimated [...] Hale MD - 06/26/2022 1:40 PM EDT [facility] PROGRESS NOTE Assessment and Plan Rahda Shafer is a 62 y.o. female patient of Jonathan Rutherford CNP with history of chronic kidney disease stage III, hypertension, rectal prolapse s/p surgery at [place] on March 2022, anemia, thyroid cancer s/p [...] Hale MD - 06/25/2022 1:52 PM EDT [facility] PROGRESS NOTE Assessment and Plan Radha Shafer is a 62 y.o. female patient of Jonathan Rutherford CNP with history of chronic kidney disease stage III, hypertension, rectal prolapse s/p surgery at [place] on March 2022, anemia, thyroid cancer s/p [...] Hale MD - 06/24/2022 5:30 PM EDT [facility] PROGRESS NOTE Assessment and Plan Radha Shafer is a 62 y.o. female patient of Jonathan Rutherford CNP with history of chronic kidney disease stage III, hypertension, rectal prolapse s/p surgery at [place] on March 2022, anemia, thyroid cancer s/p [...] NOTE Patient Name: Radha Shafer MR #: [id number] Assessment/Plan: 62 y.o. female with past medical [...] Loo MD - 06/23/2022 2:06 PM EDT [facility] PROGRESS NOTE Assessment and Plan Radha Shafer is a 62 y.o. female patient of Jonathan Rutherford CNP with history of COPD, chronic kidney disease stage III, hypertension, rectal prolapse s/p surgery at [place] on March 2022 who presented to the [...] Louis CNP - 06/22/2022 11:41 AM EDT [facility] PROGRESS NOTE Assessment and Plan Radha Shafer is a 62 y.o. female patient of Jonathan Rutherford CNP with history of COPD, chronic kidney disease stage III, hypertension, rectal prolapse s/p surgery at [place] on March 2022 who presented to the [...] III, hypertension, rectal prolapse s/p surgery at [place] on March 2022 who presented to the [...] Microbiology, Medications, and Transcriptions documented in this [id number] Note* Sign Off Note - Nessa Jay CNP - 06/28/2022 10:23 AM EDT Gastroenterology Inpatient Follow-up 06/28/2022 Nessa Jay CNP [facility] Patient: Radha Shafer Date of : 1960 [...] AM: Laboratory, Pathology, Radiology, Medications, and Transcriptions [employer] Work Phone: 1(782) 687-749208-23-2022 Miscellaneous Notes* Sign Off Note - Nessa Jay CNP - 06/28/2022 10:23 AM EDT Gastroenterology Inpatient Follow-up 06/28/2022 Nessa Jay CNP [facility] Patient: Radha Shafer Date of : 1960 [...] Thank you, Peace Zaragoza RN, BSN Clinical Online Media Director [phone] After business hours you may contact Za Lopes at [phone] (Weekdays until 10 PM and weekends 8 [...] Thank you, Peace Zaragoza RN, BSN Clinical Online Media Director [phone] After business hours you may contact Za Lopes at [phone] (Weekdays until 10pm) * Brief Op Note [...] Thank you, Peace Zaragoza RN, BSN Clinical Online Media Director [phone] After business hours you may contact Za Lopes at [phone] (Weekdays until 10 PM and weekends 8 [...] Thank you, Peace Zaragoza RN, BSN Clinical Online Media Director [phone] After business hours you may contact Za Lopes at [phone] ( until 10pm) * Plan of Care [...] PM EDT POC initiated documented in this [id number] Note* Plan of Care - Lawanda Baker RN - 06/27/2022 5:33 PM EDT POC updated and reviewed. IVF started. POC continues. [id number] Note* Plan of Care - Angela Davila [...] plan and instructions Outcome: Partially Met T [id number] Note* Plan of Care - Angela Davila [...] plan and instructions Outcome: Partially Met T [id number] Note* CDI Query - Sheri Hale MD [...] Thank you, Peace Zaragoza RN, BSN Clinical Online Media Director [phone] After business hours you may contact Za Lopes at [phone] (Weekdays until 10 PM and weekends 8 AM - 10 PM) [id number] Note* CDI Query - Sheri Hale MD [...] Thank you, Peace Zaragoza RN, BSN Clinical Online Media Director [phone] After business hours you may contact Za Lopes at [phone] (Weekdays until 10pm) [id number] Nurse Note* Lois Simmons RN - 06/23/2022 12:56 PM EDT Report called to primary nurse Josue, patient to return to room 2123. [id number] Nurse Note* Lois Simmons RN - 06/23/2022 12:56 PM EDT Report called to primary nurse Josue, patient to return to room 2123. * Susy Shelton RN - 06/23/2022 11:47 AM EDT Pt received Tap water enema by primary nurse. States still not clear. Pt is not receiving any anesthesia today for flex sig documented in this [id number] Note* Brief Op Note - Tyshawn Santos MD - 06/23/2022 12:49 PM EDT Sigmoidoscopy revealed mild proctitis sigmoid colon was normal biopsies were taken from rectum and sigmoid colon. Proctitis could be secondary to recent surgery for rectal prolapse. [facility] Work Phone: 1(628) 885-269608-18-2022 Nurse Note* Susy Shelton RN - 06/23/2022 11:47 AM EDT Pt received Tap water enema by primary nurse. States still not clear. Pt is not receiving any anesthesia today for flex sig [id number] Consult note* Debra Adamson CNP - 06/23/2022 9:40 AM EDTAssociated Order(s): IP CONSULT TO GASTROENTEROLOGY Gastroenterology Inpatient Consult 06/23/2022 Debra Adamson CNP [facility] Patient: Radha Shafer Date of : 1960 [...] PROCEDURE; Surgeon: Jada Vargas MD; Location: [facility]; Service: Colorectal CARDIOVASCULAR STRESS TEST CHOLECYSTECTOMY COLONOSCOPY with biopsies COLONOSCOPY N/A 02/17/2022 Procedure: COLONOSCOPY; Surgeon: Jada Vargas MD; Location: [facility]; Service: Colorectal GALLBLADDER HYSTERECTOMY JOINT REPLACEMENT Left knee ORTHOPEDIC SURGERY r wrist surgery, left ankle, right rotator cuff ROTATOR CUFF REPAIR Right THYROIDECTOMY N/A 07/15/2015 Procedure: TOTAL THYROIDECTOMY; Surgeon: Lopez Alonso MD; Location: [facility]; Service: US ECHO TRANSTHORACIC FOLLOWUP [...] (two) sprays into each nostril daily . qtdnnhssivn-odifzdhwp-zoaaxuka (Trelegy Ellipta) 200-62.5-25 mcg DsDv, Inhale 1 [...] interviewed and examined the patient. I reviewed [facility] nurse practitioner consultation report and agree with [...] take biopsies to rule out microcytic colitis. [id number] Consult note* Debra Adamson CNP - 06/23/2022 9:40 AM EDTAssociated Order(s): IP CONSULT TO GASTROENTEROLOGY Gastroenterology Inpatient Consult 06/23/2022 Debra Adamson CNP [facility] Patient: Radha Shafer Date of : 1960 [...] PROCEDURE; Surgeon: Jada Vargas MD; Location: [facility]; Service: Colorectal CARDIOVASCULAR STRESS TEST CHOLECYSTECTOMY COLONOSCOPY with biopsies COLONOSCOPY N/A 02/17/2022 Procedure: COLONOSCOPY; Surgeon: Jada Vargas MD; Location: [facility]; Service: Colorectal GALLBLADDER HYSTERECTOMY JOINT REPLACEMENT Left knee ORTHOPEDIC SURGERY r wrist surgery, left ankle, right rotator cuff ROTATOR CUFF REPAIR Right THYROIDECTOMY N/A 07/15/2015 Procedure: TOTAL THYROIDECTOMY; Surgeon: Lopez Alonso MD; Location: [facility]; Service: US ECHO TRANSTHORACIC FOLLOWUP [...] (two) sprays into each nostril daily . lmllpnqtdsc-slitwtcyv-huwwqmrw (Trelegy Ellipta) 200-62.5-25 mcg DsDv, Inhale 1 [...] interviewed and examined the patient. I reviewed [facility] nurse practitioner consultation report and agree with [...] rule out microcytic colitis. documented in this [id number] Note* CDI Query - Ryan Loo MD [...] Thank you, Peace Zaragoza RN, BSN Clinical Online Media Director [phone] After business hours you may contact Za Lopes at [phone] (Weekdays until 10 PM and weekends 8 AM - 10 PM) [id number] Note* CDI Query - Ryan Loo MD [...] Thank you, Peace Zaragoza RN, BSN Clinical Online Media Director [phone] After business hours you may contact Za Lopes at [phone] (Weekdays until 10pm) [id number] Note* Plan of Care - Annabelle Green [...] discharge plan and instructions Outcome: Partially Met [id number] Note* Plan of Care - Olga Russell MD - 06/21/2022 8:22 PM EDT Stool PCR still pending. Will not leave the patient uncovered overnight without antibiotics, will start the patient empirically on ciprofloxacin, ceftriaxone (allergy to penicillins) and p.o. vancomycin, de-escalate antibiotics as indicated when stool PCR finally resulted [id number] Note* Plan of Care - Annabelle Green [...] discharge plan and instructions Outcome: Partially Met [id number] Note* Plan of Care - Cheryl Martini RN - 06/21/2022 5:05 PM EDT POC initiated [id number] Emergency department Note* Duke Nath RN - 06/21/2022 4:47 PM EDT Pt had a small black soft BM. Pt cleaned and depends changed [id number] Emergency department Note* Duke Nath RN - 06/21/2022 4:47 PM EDT Pt had a small black soft BM. Pt cleaned and depends changed * Duke Nath RN - 06/21/2022 4:36 PM EDT Report called to the floor * Jaiden Bagley MD - 06/21/2022 11:10 AM EDTAssociated Order(s): Critical Care Images from the original note were not included. [facility] PCP - Jonathan Rutherford [...] follow-up with a local GI services in [place]. Patient did have a couple of episodes [...] 2. Hepatic steatosis. 3. Extensive aortic calcification. [email or web address] Workstation ID: [id number] XR Chest 1 View Preliminary Result No evident acute process in the chest. [employer] Workstation ID: [id number] Medications Ordered/Given During ED [...] PROCEDURE; Surgeon: Jada Vargas MD; Location: [facility]; Service: Colorectal CARDIOVASCULAR STRESS TEST CHOLECYSTECTOMY COLONOSCOPY with biopsies COLONOSCOPY N/A 02/17/2022 Procedure: COLONOSCOPY; Surgeon: Jada Vargas MD; Location: [facility]; Service: Colorectal GALLBLADDER HYSTERECTOMY JOINT REPLACEMENT Left knee ORTHOPEDIC SURGERY r wrist surgery, left ankle, right rotator cuff ROTATOR CUFF REPAIR Right THYROIDECTOMY N/A 07/15/2015 Procedure: TOTAL THYROIDECTOMY; Surgeon: Lopez Alonso MD; Location: [facility]; Service: US ECHO TRANSTHORACIC FOLLOWUP [...] Socioeconomic History Marital status: Occupational History 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 ODDJFRIEKGU-CFAQNGFIK-VWIFAYEZ (TRELEGY ELLIPTA) 200-62.5-25 MCG DSDV Inhale 1 [...] arrival: Ambulance Comments: [place] documented in this [id number] Emergency department Note* Duke Nath RN - 06/21/2022 4:36 PM EDT Report called to the floor [id number] History and physical note* Olga Russell MD - 06/21/2022 2:37 PM EDT [facility] HISTORY AND PHYSICAL Patient Name: Radha Shafer : 1960 MR #: [id number] Admit Date: 06/21/2022 Physicians: Jonathan Rutherford CNP (Family); No ref. provider found (Referring) Radha Shafer is a 62 y.o. female patient of Jonathan Rutherford CNP with history of COPD, chronic kidney disease stage III, hypertension, rectal prolapse s/p surgery at [place] on March 2022 who presented to the [...] III, hypertension, rectal prolapse s/p surgery at [place] on March 2022 who presented to the [...] PROCEDURE; Surgeon: Jada Vargas MD; Location: [facility]; Service: Colorectal CARDIOVASCULAR STRESS TEST CHOLECYSTECTOMY COLONOSCOPY with biopsies COLONOSCOPY N/A 02/17/2022 Procedure: COLONOSCOPY; Surgeon: Jada Vargas MD; Location: [facility]; Service: Colorectal GALLBLADDER HYSTERECTOMY JOINT REPLACEMENT Left knee ORTHOPEDIC SURGERY r wrist surgery, left ankle, right rotator cuff ROTATOR CUFF REPAIR Right THYROIDECTOMY N/A 07/15/2015 Procedure: TOTAL THYROIDECTOMY; Surgeon: Lopez Alonso MD; Location: [facility]; Service: US ECHO TRANSTHORACIC FOLLOWUP [...] 06/21/22 2:49 PM Medications 06/21/22 2:49 PM [id number] History and physical note* Olga Russell MD - 06/21/2022 2:37 PM EDT [facility] HISTORY AND PHYSICAL Patient Name: Radha Shafer : 1960 [id number] [id number] Admit Date: 06/21/2022 Physicians: Jonathan Rutherford CNP (Family); No ref. provider found (Referring) Radha Shafer is a 62 y.o. female patient of Jonathan Rutherford CNP with history of COPD, chronic kidney disease stage III, hypertension, rectal prolapse s/p surgery at [place] on March 2022 who presented to the [...] III, hypertension, rectal prolapse s/p surgery at [place] on March 2022 who presented to the [...] PROCEDURE; Surgeon: Jada Vargas MD; Location: [facility]; Service: Colorectal CARDIOVASCULAR STRESS TEST CHOLECYSTECTOMY COLONOSCOPY with biopsies COLONOSCOPY N/A 02/17/2022 Procedure: COLONOSCOPY; Surgeon: Jada Vargas MD; Location: [facility]; Service: Colorectal GALLBLADDER HYSTERECTOMY JOINT REPLACEMENT Left knee ORTHOPEDIC SURGERY r wrist surgery, left ankle, right rotator cuff ROTATOR CUFF REPAIR Right THYROIDECTOMY N/A 07/15/2015 Procedure: TOTAL THYROIDECTOMY; Surgeon: Lopez Alonso MD; Location: [facility]; Service: US ECHO TRANSTHORACIC FOLLOWUP [...] Medications 06/21/22 2:49 PM documented in this [id number] Physician Emergency department Note* Jaiden Bagley MD - 06/21/2022 11:10 AM EDTAssociated Order(s): Critical Care Images from the original note were not included. [facility] PCP - Jonathan Rutherford [...] follow-up with a local GI services in [place]. Patient did have a couple of episodes [...] 2. Hepatic steatosis. 3. Extensive aortic calcification. [employer] Workstation ID: [id number] XR Chest 1 View [...] PROCEDURE; Surgeon: Jada Vargas MD; Location: [facility]; Service: Colorectal CARDIOVASCULAR STRESS TEST CHOLECYSTECTOMY COLONOSCOPY with biopsies COLONOSCOPY N/A 02/17/2022 Procedure: COLONOSCOPY; Surgeon: Jada Vargas MD; Location: [facility]; Service: Colorectal GALLBLADDER HYSTERECTOMY JOINT REPLACEMENT Left knee ORTHOPEDIC SURGERY r wrist surgery, left ankle, right rotator cuff ROTATOR CUFF REPAIR Right THYROIDECTOMY N/A 07/15/2015 Procedure: TOTAL THYROIDECTOMY; Surgeon: Lopez Alonso MD; Location: [facility]; Service: US ECHO TRANSTHORACIC FOLLOWUP [...] Socioeconomic History Marital status: Occupational History Occupation: [employer] 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 OJOAGDQRKWY-HMTRLEOJF-CLGOXYKI (TRELEGY ELLIPTA) 200-62.5-25 MCG DSDV Inhale 1 [...] medications on file Jaiden Bagley MD 06/21/22 1426 [place] [facility] Work Phone: 1(899) 376-459108-16-2022 Emergency department Triage note* Leandro Montano II, RN - 06/21/2022 10:53 AM EDT Pt to ED with c/c of blood in stool and diarrhea. PT feels weak and nauseous. PT noticed blood in stool last night. PT reports having appointment with PCP tomorrow. [id number] Emergency department Note* Christal Jon RN - 06/21/2022 10:53 AM EDT Bed: 23 Expected date: 06/21/22 Expected time: 10:40 AM Means of arrival: Ambulance Comments: [place] [id number] Evaluation note* Subjective & Objective - Serina [...] Psych: calm, cooperative, follows commands, normal affect [id number] History of Present illness Narrative* Serina Meyers [...] Hospital Medications: acetaminophen 1,300 mg Oral Q8H [facility] amLODIPine 10 mg Oral Daily aspirin 81 mg Oral Daily budesonide-formoteroL 2 puff Inhalation BID buPROPion 75 mg Oral Daily cholecalciferol (vitamin D3) 1,000 Units Oral Daily DULoxetine 60 mg Oral Daily gabapentin 100 mg Oral TID heparin (porcine) 5,000 Units Subcutaneous Q8H [facility] lispro insulin 0-15 Units Subcutaneous at bedtime insulin lispro 0-30 Units Subcutaneous TID AC levothyroxine 112 mcg Oral Daily lisinopriL 40 mg Oral Daily pantoprazole 40 mg Oral Daily sodium chloride (PF) 5 mL Intravenous Q8H [facility] tamsulosin 0.4 mg Oral After evening meal [...] recorded. Serina Meyers MD, PGY6 Colorectal Fellow [phone] 04/04/2022 Associated attestation - Jada Vargas MD - 04/04/2022 8:44 AM EDT The pateint was seen and examined by me. Full note per resident. I personally reviewed the following: Laboratory 04/04/22 8:44 AM I agree with the following plan: Ok for dc. Fu in 2-3 weeks. Jada Vargas MD * Kings Sanchez MD - 04/03/2022 2:41 PM EDT [facility] UROLOGY Ruddy -progress note: Patient Name: Radha Shafer MR #: [id number] ASSESSMENT / PLAN: Radha Shafer is a [...] Assessmen Kings Sanchez MD [facility] Office: [phone] * Serina Meyers MD - 04/03/2022 8:03 [...] recorded. Serina Meyers MD, PGY6 Colorectal Fellow [phone] 04/03/2022 Associated attestation - Jada Vargas MD - 04/03/2022 8:55 AM EDT The pateint was seen and examined by me. Full note per resident. I personally reviewed the following: Laboratory 04/03/22 8:54 AM I agree with the following plan: Voiding trial before dc tomorrow Low fiber diet Jada Vargas MD * Grant Archibald DO - 04/03/2022 7:50 AM EDT [facility] PROGRESS NOTE Assessment and Plan Radha Shafer is a 61 y.o. female patient of Jonathan Rutherford CNP with history of CPT2 deficiency, COPD, CKD, type 2 diabetes, hypothyroidism, HTN, FELISA presented on 03/30/2022 with rectal prolapse. [facility] consulted by Jada Vargas,* for management of [...] perspective, continue home medications at prescribed doses. [facility] will sign off, please call with questions. [...] recorded. Serina Meyers MD, PGY6 Colorectal Fellow [phone] 04/02/2022 Associated attestation - Jada Vargas MD - 04/02/2022 9:30 AM EDT The pateint was seen and examined by me. Full note per resident. I personally reviewed the following: Laboratory 04/02/22 9:30 AM I agree with the following plan: Consult urology D/w [facility] any unresolved medical issues before dc Jada Vagras MD * Grant Archibald, - 04/02/2022 8:37 AM EDT [facility] PROGRESS NOTE Assessment and Plan Radha Shafer is a 61 y.o. female patient of Jonathan Rutherford CNP with history of CPT2 deficiency, COPD, CKD, type 2 diabetes, hypothyroidism, HTN, FELISA presented on 03/30/2022 with rectal prolapse. [facility] consulted by Jada Vargas,* for management of [...] Archibald DO - 04/01/2022 10:18 AM EDT [facility] PROGRESS NOTE Assessment and Plan Radha Shafer is a 61 y.o. female patient of Jonathan Rutherford CNP with history of CPT2 deficiency, COPD, CKD, type 2 diabetes, hypothyroidism, HTN, FELISA presented on 03/30/2022 with rectal prolapse. [facility] consulted by Jada Vargas,* for management of [...] recorded. Serina Meyers MD, PGY6 Colorectal Fellow [phone] 04/01/2022 Associated attestation - Emmett Abdullahi DO [...] -admit to SDU post op -home O2 -GROUP CIO for now, discuss DC later today -CLD [...] sodium chloride (PF) 5 mL Intravenous Q8H [facility] tiotropium bromide 2 puff Inhalation Daily Labs [...] recorded. Serina Meyers MD, PGY6 Colorectal Fellow [phone] 03/31/2022 Associated attestation - Jada Vargas MD - 03/31/2022 9:50 AM EDT The pateint was seen and examined by me. Full note per resident. I personally reviewed the following: Laboratory 03/31/22 9:44 AM I agree with the following plan: Clear liquid diet. Consult [facility] for medical management. Await bowel function. Jada Vargas MD documented in this [id number] Miscellaneous Notes* Subjective & Objective - Serina [...] Vargas MD - 03/30/2022 3:13 PM EDT RDAHA SHAFER [facility] [id number] 1960 DATE 03/30/2022 OPERATIVE REPORT SURGEON JADA VARGAS MD FOLLOW UP REP SERINA MEYERS MD, RESIDENT PREOPERATIVE DIAGNOSIS Full-thickness [...] This was done circumferentially. We used a [place] retractor for retraction and this was [...] case. JADA VARGAS MD D 03/30/2022 14:46 [id number] T 03/30/2022 15:08 JMAvni/CECI * Brief Op Note - Serina Meyers MD - 03/30/2022 12:23 PM EDT Brief Post Operative Note Patient Name: Radha Shafer : 1960 (61 y.o.) Date of Service: 03/30/2022 CSN: [id number] Procedure(s): ALTEMEIER PROCEDURE Pre-Operative Diagnoses: * Rectal prolapse [K62.3] Post-Operative Diagnoses: * Rectal prolapse [K62.3] Surgeon(s) and Role: * Jada Vargas MD - [facility] pgy6 Anesthesiologist: Alexandro Rajput MD FIRE CONTROL SYSTEM INSTALLER: Gen Hartmann CRNA Squaring Shear Operator: Janice Vergara RN Squaring Shear Operator Relief: Rosina Licea RN Scrub Person Relief: [...] MD 03/30/2022 2:50 PM documented in this [id number] Consult note* Kings Sanchez MD - 04/02/2022 [...] questions or to discuss. Kings Sanchez MD [facility] Office: REASON FOR CONSULT: [...] PROCEDURE; Surgeon: Jada Vargas MD; Location: [facility]; Service: Colorectal CARDIOVASCULAR STRESS TEST CHOLECYSTECTOMY COLONOSCOPY with biopsies COLONOSCOPY N/A 02/17/2022 Procedure: COLONOSCOPY; Surgeon: Jada Vargas MD; Location: [facility]; Service: Colorectal GALLBLADDER HYSTERECTOMY JOINT REPLACEMENT Left knee ORTHOPEDIC SURGERY r wrist surgery, left ankle, right rotator cuff ROTATOR CUFF REPAIR Right THYROIDECTOMY N/A 07/15/2015 Procedure: TOTAL THYROIDECTOMY; Surgeon: Lopez Alonso MD; Location: [facility]; Service: US ECHO TRANSTHORACIC FOLLOWUP LIMITED WRIST SURGERY Right Social History Socioeconomic History Marital status: Occupational History 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 [facility] UR[facility] [place] - CONSULT NOTE: Patient Name: Radha Shafer [...] questions or to discuss. Kings Sanchez MD [facility] Office: REASON FOR CONSULT: [...] PROCEDURE; Surgeon: Jada Vargas MD; Location: [facility]; Service: Colorectal CARDIOVASCULAR STRESS TEST CHOLECYSTECTOMY COLONOSCOPY with biopsies COLONOSCOPY N/A 02/17/2022 Procedure: COLONOSCOPY; Surgeon: Jada Vargas MD; Location: [facility]; Service: Colorectal GALLBLADDER HYSTERECTOMY JOINT REPLACEMENT Left knee ORTHOPEDIC SURGERY r wrist surgery, left ankle, right rotator cuff ROTATOR CUFF REPAIR Right THYROIDECTOMY N/A 07/15/2015 Procedure: TOTAL THYROIDECTOMY; Surgeon: Lopez Alonso MD; Location: [facility]; Service: US ECHO TRANSTHORACIC FOLLOWUP LIMITED WRIST SURGERY Right Social History Socioeconomic History Marital status: Occupational History 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 provider found (Referring) Radha Shafer is a 61 y.o. female patient of Jonathan Rutherford CNP with history of CPT2 deficiency, COPD, CKD, type 2 diabetes, hypothyroidism, HTN, FELISA presented on 03/30/2022 with rectal prolapse. [facility] consulted by Jada Vargas,* for management of [...] COLONOSCOPY; Surgeon: Jada Vargas MD; Location: [facility]; Service: Colorectal GALLBLADDER HYSTERECTOMY JOINT REPLACEMENT Left knee ORTHOPEDIC SURGERY r wrist surgery, left ankle, right rotator cuff ROTATOR CUFF REPAIR Right THYROIDECTOMY N/A 07/15/2015 Procedure: TOTAL THYROIDECTOMY; Surgeon: Lopez Alonso MD; Location: [facility]; Service: US ECHO TRANSTHORACIC FOLLOWUP [...] Transcriptions 03/31/22 12:08 PM documented in this [id number] Note* Quick Note - Caitlyn Mishra PA-C - 03/31/2022 6:01 PM EDT Notified by RN of patient unable to void after diaz removal, bladder scan with >500 mL. Order placed for PRN bladder scans with POUR protocol. Continue to monitor. Caitlyn Mishra PA-C Hospital Medicine Service [facility] Work Phone: [phone] Evaluation + Plan note* Assessment & Plan [...] -PRNs for BP -DC flomax -DC today [id number] Consult note* Grant Archibald DO - 03/31/2022 7:59 AM EDTAssociated Order(s): IP CONSULT TO HOSPITALIST [facility] CONSULTATION NOTE Patient Name: Radha Shafer : 1960 MR #: [id number] Admit Date: 03/30/2022 Physicians: Jonathan Rutherford CNP (Family); No ref. provider found (Referring) Radha Shafer is a 61 y.o. female patient of Jonathan Rutherford CNP with history of CPT2 deficiency, COPD, CKD, type 2 diabetes, hypothyroidism, HTN, FELISA presented on 03/30/2022 with rectal prolapse. [facility] consulted by Jada Vargas,* for management of [...] Procedure: COLONOSCOPY; Surgeon: Jada Vargas MD; Location: [facility]; Service: Colorectal GALLBLADDER HYSTERECTOMY JOINT REPLACEMENT Left knee ORTHOPEDIC SURGERY r wrist surgery, left ankle, right rotator cuff ROTATOR CUFF REPAIR Right THYROIDECTOMY N/A 07/15/2015 Procedure: TOTAL THYROIDECTOMY; Surgeon: Lopez Alonso MD; Location: [facility]; Service: US ECHO TRANSTHORACIC FOLLOWUP [...] 03/31/22 12:08 PM Transcriptions 03/31/22 12:08 PM [id number] Note* Quick Note - Delonte Roa RN - 03/30/2022 10:[address] Meyers of colorectal to notify her of patient's elevated BP and patient complaint ofchest pain. Patient sates that chest pain has been going on past few days. This RN obtained an EKG which showed NSR. Physician ordered labetalol and troponin. [id number] Note* Op Note - Jada Vargas MD - 03/30/2022 3:13 PM EDT [facility]HA [facility] [id number] 1960 DATE 03/30/2022 OPERATIVE REPORT SURGEON JADA VARGAS MD FOLLOW UP REP SERINA MEYERS MD, RESIDENT PREOPERATIVE DIAGNOSIS Full-thickness [...] This was done circumferentially. We used a [place] retractor for retraction and this was [...] case. JADA VARGAS MD D 03/30/2022 14:46 [id number] T 03/30/2022 15:08 JMAvni/SHILOHL [id number] Note* Brief Op Note - Serina Meyers MD - 03/30/2022 12:23 PM EDT Brief Post Operative Note Patient Name: Radha Shafer : 1960 (61 y.o.) Date of Service: 03/30/2022 CSN: [id number] Procedure(s): ALTEMEIER PROCEDURE Pre-Operative Diagnoses: * Rectal prolapse [K62.3] Post-Operative Diagnoses: * Rectal prolapse [K62.3] Surgeon(s) and Role: * Jada Vargas MD - [facility] Anesthesiologist: Alexandro Rajput MD FIRE CONTROL SYSTEM INSTALLER: Gen Hartmann CRNA Squaring Shear Operator: Janice Vergara RN Squaring Shear Operator Relief: Rosina Licea RN Scrub Person Relief: ST Stella Scrub Person: ST Venus Operative findings: altemeier procedure Intra and immediate post-operative complications: none Type of anesthesia used: Estimated blood loss: 100 mL Estimated urine output: 500 mL Specimen(s): ID Type Source Tests Collected by Time Destination A : Tissue Rectum TISSUE EXAM Jdaa Vargas MD 03/30/2022 1353 Implant(s): * No implants in log * Drain(s): Urethral Catheter 16 Fr. (Active) Wound(s): * No LDAs found * Serina Meyers MD 03/30/2022 2:50 PM [id number] Hospital course Narrative* Serina Meyers MD - 03/30/2022 12:23 PM EDT Images from the original note were not included. DISCHARGE SUMMARY Patient: Radha Shafer Date of : 1960 Site: [facility] Family Provider: Jonathan Rutherford CNP [...] Trelegy Ellipta 200-62.5-25 mcg Dsdv Generic drug: xygcyrtveko-dojeyoqfm-azdeuwxz What changed: Another medication with the same [...] Physician(s) Family Provider: Jonathan Rutherford CNP, Address: [address] [place] [address] Follow Up: No follow-up provider specified. Additional [...] Wright in 2-3 weeks. documented in this [id number] Attending History and physical note* Jada Vargas MD - 03/30/2022 11:13 AM EDT INTERVAL HISTORY AND PHYSICAL Patient Name: Radha Shafer Admit Date: 5241208 MR #: [id number] : 1960 The H&P has been reviewed and the patient has been examined. I concur with the findings of the H&P. There are no significant changes. It is appropriate to proceed with the planned procedure. Jada Vargas MD 03/30/2022 11:13 AM Source Note - Jada Vargas MD - 03/25/2022 1:52 PM EDT [id number] History and physical note* Jada Vargas MD - 03/30/2022 11:13 AM EDT INTERVAL HISTORY AND PHYSICAL Patient Name: Radha Shafer Admit Date: 5241208 MR #: [id number] : 1960 The H&P has been reviewed and the patient has been examined. I concur with the findings of the H&P. There are no significant changes. It is appropriate to proceed with the planned procedure. Jada Vargas MD 03/30/2022 11:13 AM Source Note - Jada Vargas MD - 03/25/2022 1:52 PM EDT documented in this [id number] Nurse Surgical operation note* Stacy Alexander RN - 03/29/2022 11:24 AM EDT PT DENIES IMPLANTS [facility] Surgical Department Patient Instructions for [facility]: Prior to surgery: Please bathe the [...] if desired. When you arrive at the [facility] on the day of your surgery, please note that station manager parking is free. Pull up to the [...] to view our online educational program in [employer]? It is very helpful to watch this as it can help you understand your surgery preparation process here at [facility]. It will provide you with [...] when being transported by a Medical Taxi [id number] Nurse Note* Stacy Alexander RN - 03/29/2022 11:24 AM EDT PT DENIES IMPLANTS [facility] Surgical Department Patient Instructions for [facility]: Prior to surgery: Please bathe the [...] if desired. When you arrive at the [facility] on the day of your surgery, please note that station manager parking is free. Pull up to the [...] to view our online educational program in [employer]? It is very helpful to watch this as it can help you understand your surgery preparation process here at [facility]. It will provide you with [...] Jonathan Rutherford CNP to be faxed to [phone]. * Elo Venegas RN - 03/28/2022 7:58 [...] cardiac clearance and labs be faxed to [phone] when completed. * Elo Venegas RN - 03/24/2022 1:45 PM EDT Secure chat message to Darlin at Dr. Vargas's office requesting orders and consent. documented in this [id number] Nurse Surgical operation note* Elo Venegas RN - 03/29/2022 8:[address] Carter who is third call today to discuss patient's chart and cardiac results. Dr. Carter reviewed patient's chart and agreed with cardiology and stated it is ok to proceed with surgery. [id number] Nurse Surgical operation note* Elo Venegas RN - 03/29/2022 8:10 AM EDT Called patient's PCP office and requested updated not from Jonathan Rutherford CNP to be faxed to [phone]. [id number] History of Present illness Narrative* Jyoti Reeves - 03/28/2022 4:15 PM EDT Pt notified cardiac clearance in chart. documented in this [id number] Nurse Surgical operation note* Elo Venegas RN - 03/28/2022 7:58 AM EDT Secure chat message to Sindhu at Dr. Vargas's office requesting orders and consent. [id number] Nurse Surgical operation note* Elo Venegas RN - 03/25/2022 12:32 PM EDT Secure chat message to Sindhu at Dr. Vargas's office inquiring about how Dr. Vargas would like to proceed since at this current time patient is not cleared for surgery from PCP or from cardiology. Also requested orders and consent to be faxed over. [id number] Nurse Surgical operation note* Elo Venegas RN - 03/24/2022 1:50 PM EDT Called patient's PCP office and requested PAT paperwork, cardiac clearance and labs be faxed to [phone] when completed. [id number] Nurse Surgical operation note* Elo Venegas RN - 03/24/2022 1:45 PM EDT Secure chat message to Darlin at Dr. Vargas's office requesting orders and consent. [id number] History of Present illness Narrative* Jyoti Reeves - 03/21/2022 2:39 PM EDT Pt needs stress test and cardiology consult before surgery. Jason Grullon at Jonathan Rutherford CNP office. She will put referrals in today with note to expedite due to surgery date 03/30. * Jyoti Reeves - 03/21/2022 1:52 PM EDT Faxed ekg to Jonathan Rutherford CNP. documented in this [id number] History of Present illness Narrative* Jyoti Reeves - 03/21/2022 1:52 PM EDT Faxed ekg to Jonathan Rutherford CNP. documented in this [id number] History of Present illness Narrative* Jada Vargas [...] urinating All questions answered. documented in this [id number] History of Present illness Narrative* America Stone MA - 01/07/2022 9:56 AM EST Pt has colonoscopy scheduled with [facility] at [facility] 02/17 @11:30am H/o polyps documented in this [id number] Note* Addendum Note - Bety Hanson LPN - 12/30/2021 12:01 PM ESTAddended by: BETY HANSON on: 12/30/2021 12:01 PM Modules accepted: Orders [id number] Note* Addendum Note - Bety Hanson LPN - 12/30/2021 12:01 PM ESTAddended by: BETY HANSON on: 12/30/2021 12:01 PM Modules accepted: Orders [id number] Note* Addendum Note - Bety Hanson LPN - 12/30/2021 12:01 PM ESTAddended by: BETY HANSON on: 12/30/2021 12:01 PM Modules accepted: Orders [id number] Miscellaneous Notes* Addendum Note - Bety Hanson LPN - 12/30/2021 12:01 PM ESTAddended by: BETY HANSON on: 12/30/2021 12:01 PM Modules accepted: Orders documented in this [id number] History of Present illness Narrative* Estrada Garcia MD - 12/30/2021 11:00 AM EST [facility] [address] [place] [address] Name: Radha Shafer Age: 61 y.o. : [...] was has not followed with her old pilot so has been going without any inhalers. [...] to episodic myopathy. She is treated at [facility]. 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 - ipratropium-albuteroL (DUO-NEB) 0.5-2.5 mg/3 ml nebulizer; Take 3 mL by nebulization 3 (three) times a day as needed for wheezing or shortness of breath . - Home Oxygen Concentrator with Portability Nasal cannula; 2 LPM; Continuous and/or During Exertion; [facility] Ms. 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 Mouth/Throat: Lips: Excello. No lesions. Mouth: No lacerations or oral [...] Chepe Yin CNP 08/04/21 documented in this [id number] NoteTherapy Diagnosis Assessed Cervical radiculopathy, acute (723.4) [...] secs on/20 off with lbs as tolerated. 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 [id number] Emergency department Note * Georgie Vázquez MD - 04/14/2021 3:56 PM EDT [facility] ED Attending Note: NAME: Radha Shafer 60 y.o. CSN: [id number] PCP: Jonathan Rutherford CNP History: Chief Complaint: [...] managed for this by Dr. Salinas at [facility]. 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 MYOGLOBIN, URINE No orders to display Procedures: Procedures ED Course / Medical Decision Making: Work-up of the patient has an elevated CPK of 1900 and elevated creatinine of 1.7, up from her previous creatinine 3 months ago of 1.4. Case is discussed with Dr. Gonzalez, direct mail marketer on-call for thepatient's own physician Dr. Salinas. [...] for repeat CPK and chemistry at the [facility] lab system here. The patient understands to get a blood test obtained and to call Dr. Salinas's office to set up a follow-up appointment. She also agrees to call their office if she gets worse, at their suggestion, or return to the emergency department. . Clinical Impression: 1. Inborn error of metabolism Disposition: Patient is being discharged to home Georgie Vázquez MD [facility] Emergency Department (Please note that [...] DR SALINAS NEEDS TO BE CONTACTED AT [facility]. * Zamzam Fink - 04/14/2021 2:58 PM EDT Bed: 25 Expected date: Expected time: Means of arrival: Comments: Triage PT documented in this [id number] Hospital Discharge instructions * Instructions* Georgie Vázquez MD - 04/14/2021 Continue to drink lots of water as you have been. Follow-up with Dr. Salinas. Return or call Dr. Salinas if you get worse. * Attachments The following attachments cannot be sent through Care Everywhere. * Cramp: Muscle (Nigerian) documented in this [id number] History of Present illness Narrative* At this [...] Stage III (moderate) [facility] COPD exacerbation (HCC)- Primary Obstructive chronic bronchitis with exacerbation Screening for lung cancer [facility] Diagnosis Pain of upper abdomen- Primary Nausea Nausea alone Diarrhea, unspecified type Pain of upper abdomen Nausea Nausea alone Pain of upper abdomen Nausea Nausea alone [facility] Diagnosis Onset Date Resolution Status Carnitine palmitoyltransferase II deficiency chronic Insomnia chronic Low back pain chronic Neck pain chronic Peripheral arterial disease chronic Polyneuropathy chronic [facility] Work Phone: Evaluation note* Diagnosis Onset [...] ctive COPD (chronic obstructive pulmonary disease) noneactive [facility] Work Phone: Evaluation note* Diagnosis Onset [...] ctive COPD (chronic obstructive pulmonary disease) noneactive [facility] Work Phone: Evaluation note* 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 [facility] Diagnosis Onset Date Resolution Status Cervical radiculopathy acute Fatigue acute Insomnia chronic Low back pain chronic Neck pain chronic Peripheral arterial disease chronic Polyneuropathy chronic Chronic bronchitis chronic Hypoxia chronic FELISA (obstructive sleep apnea) chronic Smoking greater than 30 pack years chronic Coronary artery disease 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 Essential hypertension chron ic FELISA (obstructive sleep apnea) chronic Palpitations chronic Syncope chronic [facility] Work Phone: Evaluation note* Diagnosis Onset Date Resolution Status Cervical radiculopathy acute Fatigue acute Insomnia chronic Low back pain chronic Neck pain chronic Peripheral arterial disease chronic Polyneuropathy chronic Chronic bronchitis chronic Hypoxia chronic FELISA (obstructive sleep apnea) chronic Smoking greater than 30 pack years chronic Coronary artery disease 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 Essential hypertension chron ic FELISA (obstructive [...] disease) noneactive Screening for breast cancer noneactive [facility] Work Phone: Evaluation note* Diagnosis Onset Date Resolution Status Chronic bronchitis chronic Hypoxia chronic FELISA (obstructive sleep apnea) chronic Smoking greater than 30 pack years chronic Coronary artery disease 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 Essential hypertension chron ic FELISA (obstructive [...] disease) noneactive Screening for breast cancer noneactive [facility] Work Phone: Evaluation note* Diagnosis Onset Date Resolution Status Coronary artery disease 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 Essential hypertension chron ic FELISA (obstructive [...] disease) noneactive Screening for breast cancer noneactive [facility] Work Phone: Evaluation note* Diagnosis Pain- Primary Generalized [facility] Trigger finger of left thumb- Primary [facility] Diagnosis Onset Date Resolution Status Coronary artery disease 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 Essential hypertension chron ic Nonsustained ventricular tachycardia chronic Obesity chronic FELISA (obstructive sleep apnea) chronic Palpitations chronic Syncope chronic Polyneuropathy acute [facility] Work Phone: Evaluation note* Diagnosis Onset Date Resolution Status Coronary artery disease 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 Essential hypertension chron ic Nonsustained ventricular [...] pulmonary disease) noneactive Polyclonal gammopathy chroni c [facility] Work Phone: Evaluation note* Diagnosis Onset [...] abdominal pain nonea ctive Post-operative hypothyroidism noneactive [facility] Work Phone: Evaluation note* Diagnosis Coronary artery disease, angina presence unspecified, unspecified vessel or lesion type, unspecified whether bois forte or transplanted heart Cardiomyopathy, unspecified type ([facility]) Sleep apnea, unspecified type Chronic obstructive pulmonary disease, unspecified COPD type ([facility]) Hypertension, unspecified type Abnormal electrocardiogram Nonspecific abnormal electrocardiogram (ECG) (EKG) Chest pain, unspecified type 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[facility]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 Rectal prolapse- Primary Chest pain- Primary Unspecified chest pain Stable angina (HCC) Other and unspecified angina pectoris Pain of upper abdomen Pain- Primary Generalized pain documented in this encounter [facility]* Diagnosis Coronary artery disease, angina presence unspecified, unspecified vessel or lesion type, unspecified whether bois forte or transplanted heart Cardiomyopathy, unspecified type (HCC) Sleep apnea, unspecified type Chronic obstructive pulmonary disease, unspecified COPD type (HCC) Hypertension, unspecified type Abnormal electrocardiogram Nonspecific abnormal electrocardiogram (ECG) (EKG) Chest pain, unspecified type 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[facility]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 Rectal prolapse- Primary Chest pain- Primary Unspecified chest pain Stable angina (HCC) Other and unspecified angina pectoris Pain of upper abdomen Acute hypercapnic respiratory failure (HCC)- Primary Respiratory failure, unspecified chronicity, unspecified whether with hypoxia or hypercapnia ([facility]) COPD exacerbation ([facility]) Obstructive chronic bronchitis with exacerbation Cellulitis of left knee documented in this encounter [facility] note* Diagnosis Coronary artery disease, angina presence unspecified, unspecified vessel or lesion type, unspecified whether bois forte or transplanted heart Cardiomyopathy, unspecified type ([facility]) Sleep apnea, unspecified type Chronic obstructive pulmonary disease, unspecified COPD type ([facility]) Hypertension, unspecified type Abnormal electrocardiogram Nonspecific abnormal electrocardiogram (ECG) (EKG) Chest pain, unspecified type 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[facility]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 Rectal prolapse- Primary Chest pain- Primary Unspecified chest pain Stable angina (HCC) Other and unspecified angina pectoris Pain of upper abdomen NSVT (nonsustained ventricular tachycardia) ([facility])- Primary documented in this encounter [facility] note* Diagnosis Coronary artery disease, angina presence unspecified, unspecified vessel or lesion type, unspecified whether bois forte or transplanted heart Cardiomyopathy, unspecified type (HCC) Sleep apnea, unspecified type Chronic obstructive pulmonary disease, unspecified COPD type (HCC) Hypertension, unspecified type Abnormal electrocardiogram Nonspecific abnormal electrocardiogram (ECG) (EKG) Chest pain, unspecified type 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[facility]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 Rectal prolapse- Primary Chest pain- Primary Unspecified chest pain Stable angina (HCC) Other and unspecified angina pectoris Pain of upper abdomen Ventricular tachycardia (HCC) Paroxysmal ventricular tachycardia Palpitations NSVT (nonsustained ventricular tachycardia) ([facility]) documented in this encounter [facility] note* Diagnosis Coronary artery disease, angina presence unspecified, unspecified vessel or lesion type, unspecified whether bois forte or transplanted heart Cardiomyopathy, unspecified type (HCC) [...] Stage III (moderate) KRISTIN (acute kidney injury) ([facility]) Non-traumatic rhabdomyolysis Diarrhea, unspecified type Rectal prolapse [...] joint, unspecified laterality [facility] Diagnosis Coronary artery disease, angina presence unspecified, unspecified vessel or lesion type, unspecified whether bois forte or transplanted heart Cardiomyopathy, unspecified type (HCC) [...] ventricular tachycardia Palpitations NSVT (nonsustained ventricular tachycardia) ([facility]) [facility] Diagnosis Coronary artery disease, angina presence unspecified, unspecified vessel or lesion type, unspecified whether bois forte or transplanted heart Cardiomyopathy, unspecified type (HCC) [...] congestive heart failure, unspecified heart failure type ([facility]) SIRS (systemic inflammatory response syndrome) (HCC) Systemic inflammatory response syndrome, unspecified Pneumonia Pneumonia, organism unspecified CKD (chronic kidney disease) Chronic kidney disease, unspecified Acute exacerbation of chronic obstructive pulmonary disease (COPD) (HCC) Obstructive chronic bronchitis with exacerbation Elevated CPK Other nonspecific abnormal serum enzyme levels 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[facility]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 Myalgia Unspecified myalgia and myositis COPD exacerbation ([facility]) Obstructive chronic bronchitis with exacerbation [facility] Diagnosis Coronary artery disease, angina presence unspecified, unspecified vessel or lesion type, unspecified whether bois forte or transplanted heart Cardiomyopathy, unspecified type ([facility]) Sleep apnea, unspecified type Chronic obstructive pulmonary disease, unspecified COPD type ([facility]) Hypertension, unspecified type Abnormal electrocardiogram Nonspecific abnormal electrocardiogram (ECG) (EKG) Chest pain, unspecified type 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[facility]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 Rectal prolapse- Primary Chest pain- Primary Unspecified chest pain Stable angina (HCC) Other and unspecified angina pectoris Pain of upper abdomen NSVT (nonsustained ventricular tachycardia) ([facility]) [facility] Diagnosis CPT2 deficiency- Primary Disorders of fatty acid oxidation [facility] N[facility]ative* (Pt. states she [...] sent through Care Everywhere. * High-Fiber Diet (Nigerian) [facility] Inst[facility]: [facility] Relbqz for referral (narrative)No reason for referral information availableWAdena [facility] Work Phone: reason for visit Narrative* Auth/Cert Specialty Diagnoses / Procedures Referred By Contac t Referred To Contact Diagnoses Rectal prolapse Rectal prolapse [K62.3] Procedures TX EXCIS RECTAL PROLAPSE,PERINEAL Jada Vargas MD [address] [facility] [address] [place] [address] Referral ID Status Reason Start Date Expiration Date Visits Re quested Visits Authorized [id number] 03/07/2022 1 1 [facility] Diagnosis Surgery follow-up - Primary Diagnosis Coronary artery disease, angina presence unspecified, unspecified vessel or lesion type, unspecified whether bois forte or transplanted heart Cardiomyopathy, unspecified type ([facility]) Sleep apnea, unspecified type Chronic obstructive pulmonary disease, unspecified COPD type (HCC) Hypertension, unspecified type Abnormal electrocardiogram Nonspecific abnormal electrocardiogram (ECG) (EKG) Chest pain, unspecified type 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[facility]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 Diagnosis Cervical [...] Documents on File Type Date Recorded Patient Attending Radiologist Expl anation Advance Directives and Living Will Latest Code Status on File Code Status Date Activated Date Inactivated Comments Full Code 07/15/2015 4:39 PM 07/16/2015 5:24 PM Documents on File Type Date Recorded Patient Attending Radiologist Expl anation Advance Directives and Livin g Will 04/10/2019 12:40 PM Documents on File Type Date Recorded Patient Attending Radiologist Expl anation Advance Directives and Livin g Will 05/07/2019 2:35 PM Documents on File Type Date Recorded Patient Attending Radiologist Expl anation Advance Directives and Livin g Will 05/15/2020 12:00 AM Documents on File Type Date Recorded Patient Attending Radiologist Expl anation Advance Directives and Livin g Will 09/15/2020 12:00 AM Latest Code Status on File Code Status Date Activated Date Inactivated Comments Full Code 07/15/2015 4:39 PM 07/16/2015 5:24 PM Documents on File Type Date Recorded Patient Attending Radiologist Expl anation Advance Directives and Livin g Will 11/02/2020 1:59 PM Documents on File Type Date Recorded Patient Attending Radiologist Expl anation Advance Directives and Livin g Will 11/09/2020 12:00 AM Documents on File Type Date Recorded Patient Attending Radiologist Expl anation Advance Directives and Livin g Will 11/09/2020 12:00 AM Documents on File Type Date Recorded Patient Attending Radiologist Expl anation Advance Directives and Livin g Will 05/07/2019 2:35 PM Documents on File Type Date Recorded Patient Attending Radiologist Expl anation Advance Directives and Livin g Will 04/14/2021 3:22 PM Documents on File Type Date Recorded Patient Attending Radiologist Expl anation Advance Directives and Livin g Will 05/30/2021 8:35 PM Documents on File Type Date Recorded Patient Attending Radiologist Expl anation Advance Directives and Livin g Will 05/30/2021 8:35 PM Documents on File Type Date Recorded Patient Attending Radiologist Expl anation Advance Directives and Livin g Will 12/29/2021 3:40 PM Documents on File Type Date Recorded Patient Attending Radiologist Expl anation Advance Directives and Livin g Will 12/29/2021 3:40 PM Documents on File Type Date Recorded Patient Attending Radiologist Expl anation Advance Directives and Livin g Will 02/25/2022 3:40 PM Documents on File Type Date Recorded Patient Attending Radiologist Expl anation Advance Directives and Livin g Will 03/04/2022 3:00 PM Documents on File Type Date Recorded Patient Attending Radiologist Expl anation Advance Directives and Livin g [...] Do you have a Healthcare Power of Immersion Metal Cleaner? No June 12, 2024 9:25pm Living Will No January 01 5:37pm Do you have a Healthcare Power of Immersion Metal Cleaner? No January 01, 2025 5:37pm Date Activated [...] Do you have a Healthcare Power of Immersion Metal Cleaner? No June 12, 2024 9:25pm Advance Directive Response Recorded Date/ Time Living Will No June 12, 2024 9:25pm Do you have a Healthcare Power of Immersion Metal Cleaner? No June 12, 2024 9:25pm Do you have a Healthcare Power of Immersion Metal Cleaner? No July 17, 2025 7:12pm Advance Directive Response Recorded Date/ Time Living Will No June 12, 2024 9:25pm Do you have a Healthcare Power of Immersion Metal Cleaner? No June 12, 2024 9:25pm Do you have a Healthcare Power of Immersion Metal Cleaner? No July 17, 2025 11:58pm Reason for Referral Status Reason Specialty Diagnoses / Procedures Referred By Contact Referred To Contact Pending Review Cardiology Diagnoses Abnormal electrocardiogram Cardiomyopathy, unspecified type (HCC) Hypertension, unspecified type Procedures Echocardiogram complete Whitley Martinez MD [address] [place] [address] Status Reason Specialty Diagnoses / Procedures Referre d By Contact Referred To Contact Closed Diagnoses Myopathy Procedures MRI LONG BONE NEUROGRAPHY LOWER EXTREMITY LEFT Brittany Rushing MD [address] [place] [address] Status Reason Specialty Diagnoses / Procedures Referre d By Contact Referred To Contact Closed Diagnoses Osteoarthritis of spine with radiculopathy, lumbar region Procedures MRI SPINE LUMBAR WITHOUT CONTRAST Brittany Rushing MD [address] [place] [address] Status Reason Specialty Diagnoses / Procedures Referre d By Contact Referred To Contact Closed Diagnoses Cervical spine disease Procedures MRI SPINE CERVICAL WITHOUT CONTRAST Brittany Rushing MD [address] [place] [address] Status Reason Specialty Diagnoses / Procedures Referre d By Contact Referred To Contact Closed Radiology Diagnoses Right hip pain Procedures MR Hip Right Without Contrast Rusty Dozier MD [address] [place] [address] Status Reason Specialty Diagnoses / Procedures Referre d By Contact Referred To Contact Closed Cardiology Diagnoses Abnormal electrocardiogram Cardiomyopathy, unspecified type (HCC) Hypertension, unspecified type Procedures Echocardiogram complete Whitley Martinez MD [address] [place] [address] Status Reason Specialty Diagnoses / Procedures Referre d By Contact Referred To Contact Closed Cardiology Diagnoses Claudication of lower extremity (HCC) Procedures Ultrasound ankle / brachial indices extremity complete Elana Pena, DO [address] [place] [address] Specialty Diagnoses / Procedures Referred By Contac t Referred To Contact Otolaryngology Diagnoses Dizzy Jonathan RutherfordDonna, WOLF HUNTER [address] [place] [address] Alan Saba MD [address] [facility] Destiny [address] [place] [address] Referral ID Status Reason Start Date Expiration Date V isits Requested Visits Authorized [id number] Pending Review 07/22/2021 07/22/2022 1 1 Specialty Diagnoses / Procedures Referred By Contac t Referred To Contact General Surgery Diagnoses Rectal prolapse Jonathan Rutherford Monica, WOLF HUNTER [address] [id number] Jada Vargas MD [address] [address] Referral ID Status Reason Start Date Expiration Date V isits Requested Visits Authorized [id number] Pending Review 07/29/2021 07/29/2022 1 1 Specialty Diagnoses / Procedures Referred By Contac t Referred To Contact Radiology Diagnoses Screening for lung cancer Chronic obstructive pulmonary disease, unspecified COPD type (HCC) Procedures CT Lung Cancer Screening Estrada Garcia MD [address] [address] Referral ID Status Reason Start Date Expiration Date V isits Requested Visits Authorized [id number] New Request 12/30/2021 12/30/2022 1 1 Specialty Diagnoses / Procedures Referred By Contac t Referred To Contact Cardiology Diagnoses Rectal prolapse Preoperative testing Procedures ECG 12 Lead Jada Vargas MD [id number] [place] [address] Referral ID Status Reason Start Date Expiration Date V isits Requested Visits Authorized [id number] Authorized 03/08/2022 03/08/2023 1 1 Specialty Diagnoses / Procedures Referred By Jacob mccauley Referred To Contact Radiology Diagnoses Screening for lung cancer Personal history of nicotine dependence Procedures CT Lung Cancer Screening Estrada Garcia MD [facility] Vini Fraser [address] [address] Referral ID Status Reason Start Date Expiration Date V isits Requested Visits Authorized [id number] New Request 01/05/2023 01/05/2024 1 1 Instructions * Patient Instructions* Hayley Glez RN - 04/05/2019 2:23 PM EDT .How to contact your Care Team: Provider: Whitley Martinez MD [facility] Nurse: Hayley Glez RN In case of an emergency please call 911. REFILLS: When in need for refills please call your care team or the office at [phone]. Please include medication name, pharmacy name, and specify 30-day or 90-day supply. Please check with your pharmacy within 24 hours of request for your refill. You must follow up as directed to continue current refills. Thank you! documented in this encounter History of Present Illness * Whitley Martinez MD - 04/05/2019 2:25 PM EDT OFFICE CONSULTATION NOTE [facility] [address] [facility] [address] [facility] [phone] Physicians: Elana Pena DO (Family); [...] called CPT2 deficiency. [facility]. The patient does note anterior [...] TOTAL THYROIDECTOMY; Surgeon: Lopez Alonso MD; Location: [facility]; Service: US ECHO TRANSTHORACIC FOLLOWUP [...] MD Authorized by: Rivas Jules MD CPT 95419 - Large Joint Arthrocentesis: Consent given by: [...] PM EST [facility] [address] [facility] [address] [facility] [phone] Radha Shafer is a 60 y.o. female [...] Conte MD - 11/24/2020 9:43 AM EST [facility] Neurology [address] floor [place], [place] [phone] Nerve Conduction & EMG Report Patient: Radha [...] Neurophysiology, Neurology, Vascular Neurology and Sleep Medicine [facility] [place] [phone] Nota bene: Portions of this chart was created using Sinch voice recognition software. Occasional wrong-word or sound-like [...] Normal documented in this encounter* Flori Rodrigues, [facility] - 11/09/2020 10:30 AM EST Associated Order(s): LG Jt Injection/Arthrocentesis: R knee Post-Procedure Diagnose(s): Primary osteoarthritis of right knee LG Jt Injection/Arthrocentesis: R knee Performed by: Flori Rodrigues CNP Authorized by: Flori Rodrigues CNP CPT 67910 - Large Joint Arthrocentesis: Consent given by: [...] TOTAL THYROIDECTOMY; Surgeon: Lopez Alonso MD; Location: [facility]; Service: US ECHO TRANSTHORACIC FOLLOWUP LIMITED WRIST SURGERY Right Social History Socioeconomic History Marital status: Spouse name: Not on file Number of children: Not on file Years of education: Not on file Highest education level: Not on file 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 * Joint Pain (Nigerian) documented in this encounter Chief Complaint and Reason for Visit Chief Complaint FOLLOW UP R/S EORDER Reason for Visit Carnitine palmitoylt ransferase II deficiency Insomnia Low back pain Neck pain Peripheral arterial disease Polyneuropathy Chief Complaint FOLLOW UP R/S EORDER [facility] CARE, PT NEEDS NPP Reason for [...] disease) Chief Complaint FOLLOW UP R/S EORDER [facility] CARE, PT NEEDS NPP CERVICAL RAD [...] COPD (chronic obstructive pulmonary disease) Chief Complaint [facility] EST. CARE, PT NE EDS NPP CERVICAL [...] section and content) DATE CREATED AUTHOR 05/01/2018 [facility] DATE CREATED AUTHOR AUTHOR'S ORGANIZ ATION 07/04/2018 [facility] DATE CREATED AUTHOR AUTHOR'S ORGANIZ ATION 01/29/2019 [facility] DATE CREATED AUTHOR AUTHOR'S ORGANIZ ATION 02/16/2019 [facility] DATE CREATED AUTHOR AUTHOR'S ORGANIZ ATION 07/25/2019 [facility] DATE CREATED AUTHOR AUTHOR'S ORGANIZ ATION 04/25/2021 [facility] DATE CREATED AUTHOR AUTHOR'S ORGANIZ ATION 07/09/2021 [facility] DATE CREATED AUTHOR AUTHOR'S ORGANIZ ATION 05/01/2025 [facility] DATE CREATED AUTHOR AUTHOR'S ORGANIZ ATION 07/26/2025 [facility] DATE CREATED AUTHOR AUTHOR'S ORGANIZ ATION 08/18/2025 [facility] DATE CREATED AUTHOR AUTHOR'S ORGANIZ ATION 09/07/2025 [facility] DATE CREATED AUTHOR AUTHOR'S ORGANIZ ATION 09/13/2025 [facility] Reason for Visit (unrecogniz ed section and [...] unspecified vessel or lesion type, unspecified whether bois forte or transplanted heart Cardiomyopathy, unspecified type (HCC) Oscar Vinson MD [facility] [place] [address] [facility] [address] [facility] [place] [address] Reason Comments Results Status Reason Specialty Diagnoses / Procedures Referre d By Contact Referred To Contact Status Reason Specialty Diagnoses / Procedures Referre d By Contact Referred To Contact Closed Cardiology Diagnoses Abnormal electrocardiogram Cardiomyopathy, unspecified type (HCC) Hypertension, unspecified type Procedures Echocardiogram complete Whitley Martinez MD [address] [place] [address] Status Reason Specialty Diagnoses / Procedures Referre d By Contact Referred To Contact Closed Cardiology Diagnoses Claudication of lower extremity (HCC) Procedures Ultrasound ankle / brachial indices extremity complete Elana Pena, DO [address] [place] [address] Reason Comments Pain Status Reason Specialty Diagnoses / Procedures Referred By Contact Referred To Contact Closed Orthopedic Surgery Diagnoses Chronic right shoulder pain Jonathan Rutherford, WOLF HUNTER [address] [place] [address] Rivas Jules MD [address] [place] [address] Reason Comments Joint Swelling Status Reason Specialty Diagnoses / Procedures Referred By Contact Referred To Contact Pending Review Specialty Services Required/Patien t's Best Interest Neurology Diagnoses Polyneuropathy Rusty Dozier MD [address] [place] [id number] Eugenia Conte MD [address] [address] Reason Comments Leg Pain R leg pain [...] Contact Otolaryngology Diagnoses Dizzy Alexandre Jonathan Monica, WOLF HUNTER [address] [place] [address] Alan Saba MD [address] [place] [id number] Referral ID Status Reason Start Date Expiration Date V isits Requested Visits Authorized [id number] Pending Review 07/22/2021 07/22/2022 1 1 Reason Comments Consult Pre-op Reason Onset Date Comments Medication Refill 01/07/2022 Reason Comments Rectal Prolapse Discuss surgery Reason Comments Rectal Bleeding Specialty Diagnoses / Procedures Referred By Contac t Referred To Contact Diagnoses Diarrhea Referral ID Status Reason Start Date Expiration Date Visits Re quested Visits Authorized [id number] 1 1 Reason Comments Follow-up Reason Onset [...] Expiration Date Visits Re quested Visits Authorized [id number] 1 1 Reason Comments Initial Visit (Intake) VT/Palpitations/ Flavia Specialty Diagnoses / Procedures Referred By Contac t Referred To Contact Cardiology Diagnoses Ventricular tachycardia (HCC) Palpitations Flavia Shine MD [address] [place] [address] Phone: tel:[phone] fax: [facility] [address], 3rd [place] [address] Phone: tel: fax: Referral ID Status Reason Start Date Expiration Date V isits Requested Visits Authorized [id number] Pending Review 08/14/2024 08/14/2025 1 1 Specialty Diagnoses / Procedures Referred By Jacob mccauley Referred To Contact Diagnoses COPD exacerbation (HCC) Acute hypoxic respiratory failure (HCC) Referral ID Status Reason Start Date Expiration Date Visits Re quested Visits Authorized [id number] 1 1 Reason Onset Date Comments Medication Prior Authorization (General) 024 Dojolvi Reason Onset Date Comments Refill Request 02/05/2025 Doljovi Reason Comments Shortness of Breath Specialty Diagnoses / Procedures Referred By Jacob mccauley Referred To Contact Diagnoses SOB (shortness of breath) Referral ID Status Reason Start Date Expiration Date Visits Re quested Visits Authorized [id number] 1 1 Reason Comments Follow-up 4 mo [...] secti on and content) ED PROVIDER NOTE [facility] NAME: Radha Shafer AGE: 60 y.o. 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 Specialty: Nurse Practitioner [address] [place] [address] 2. Rivas Jules MD. Specialty: Orthopedic Surgery [address] [place] [address] Contact information for after-discharge care Follow-up information has not been specified. Fay Sanchez PA-C 11/02/20 1524 Pt states about 1 week ago she began having right knee swelling with pain /10. 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 No redness noted to the area at this time. documented in this encounter ED PROVIDER NOTE [facility] NAME: Radha Shafer AGE: 59 y.o. 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 Follow-up Information 1. Rivas Mancini DO. Specialties: General Surgery, Pain Management, Physical Medicine/Rehabilitation Why: Call first thing in the morning to arrange for follow-up [address] [place] [address] 2. Rusty Dozier MD. Specialty: Neurology Why: Call first thing in the morning to arrange for follow-up [address] [place] [address] Contact information for after-discharge care Follow-up information [...] Patient/family refused) 0600 (Not Given - Provider: Dniorah Arriaza RN - Reason: Patient/family refused)1520 (Given [...] 1200 0724 (Given - Provider: Margie Huynh, [employer])1425 (Given - Provider: Margie Huynh, [employer])1913 (Given - Provider: Cecille Maria, [employer]) 0720 (Given - Provider: Margie Huynh, [employer])1404 (Given - Provider: Margie Huynh, [employer])2048 (Given - Provider: Mike Esqueda, [employer]) 0716 (Given - Provider: Aleisha Pickett, GILDA)1400 [...] Silva, GILDA)0711 (Given - Provider: Cecille Maria, [employer])1404 (Given - Provider: Reema Anne, GILDA) aspirin [...] 2330 0751 (Given - Provider: Aye Marshall, [employer])1912 (Given - Provider: Bindu Watson, [employer]) 0707 (Given - Provider: Negar Wood, [employer])2108 (Given - Provider: Delmy Brock, [employer]) 0812 (Given - Provider: Malika Davila, [employer]) cefTRIAXone (ROCEPHIN) IVPB 2 g (premix) (CANCELED) [...] Comment: patient request)1499 (Canceled Entry - Provider: Japsreet Barnes RN)2026 (Given - Provider: Lorna Velázquez, [...] Alexandria Sanchez)1509 (Given - Provider: Esperanza Suggs, [employer])1938 (Given - Provider: Noris Jaramillo) 0019 (Given - Provider: Noris Jaramillo)0328 (Given - Provider: Noris Jaramillo)0800 (Canceled Entry - Provider: Aleisha Pickett, [employer] - Comment: order changed) ipratropium-albuteroL (DUO-NEB) 0.5-2.5 mg/3 ml nebulizer solution 3 mL 3 mL, Inhalation, Every 6 hours scheduled (RT), First dose (after last modification) on Mon02/17/25 at 0815 0846 (Given - Provider: Aleisha Pickett, [employer])1326 (Given - Provider: Evelina Ca, GILDA)1951 (Given - Provider: Belkys Silva, [employer]) 0101 (Given - Provider: Belkys Silva, GILDA)0724 [...] JASON) 1230 (Given - Provider: Marina Jarrett, JSAON) magnesium sulfate 2 g in sterile water [...] For 2 doses, Anginal pain, may repeat [id number] x2, then notify physician. DO NOT CRUSH [...] Care Teams (unrecognized sec tion and content) Vehicle Body Maker Relationship Specialty Start Date End Date Jonathan Rutherford, WOLF HUNTER [address] [place] [address] PCP - General Nurse Practitioner 11/02/20 Elana Pena, DO [address] [place] [address] Referring Physician Family Medicine 07/15/16 Jonathan Rutherford, WOLF HUNTER [address] [place] [address] Referring Physician Nurse Practitioner 07/22/21 Vehicle Body Maker Relationship Specialty Start Date End Date Jonathan Rutherford, WOLF HUNTER [address] [place] [address] PCP - General Nurse Practitioner 11/02/20 Elana Pena, DO [address] [place] [address] Referring Physician Family Medicine 07/15/16 Jonathan Rutherford, WOLF HUNTER [address] [place] [address] Referring Physician Nurse Practitioner 07/22/21 Vehicle Body Maker Relationship Specialty Start Date End Date Jonathan Rutherford CNP [address] [place] [address] PCP - General Nurse Practitioner 11/02/20 Elana Pena, DO [address] [place] [address] Referring Physician Family Medicine 07/15/16 Jonathan Rutherford, WOLF HUNTER [address] [place] [address] Referring Physician Nurse Practitioner 07/22/21 Vehicle Body Maker Relationship Specialty Start Date End Date Jonathan Rutherford, WOLF HUNTER [address] [place] [address] PCP - General Nurse Practitioner 11/02/20 Elana Pena, DO [address] [place] [address] Referring Physician Family Medicine 07/15/16 Jonathan Rutherford, WOLF HUNTER [address] [place] [address] Referring Physician Nurse Practitioner 07/22/21 Vehicle Body Maker Relationship Specialty Start Date End Date Jonathan Rutherford, WOLF HUNTER [address] [place] [address] PCP - General Nurse Practitioner 11/02/20 Elana Pena, DO [address] [place] [address] Referring Physician Family Medicine 07/15/16 Jonathan Rutherford, WOLF HUNTER [address] [place] [address] Referring Physician Nurse Practitioner 07/22/21 Vehicle Body Maker Relationship Specialty Start Date End Date Jonathan Rutherford, WOLF HUNTER [address] [place] [address] PCP - General Nurse Practitioner 11/02/20 Elana Pena, DO [address] [place] [address] Referring Physician Family Medicine 07/15/16 Jonathan Rutherford, WOLF HUNTER [address] [place] [address] Referring Physician Nurse Practitioner 07/22/21 Vehicle Body Maker Relationship Specialty Start Date End Date Jonathan Rutherford, WOLF HUNTER [address] [place] [address] PCP - General Nurse Practitioner 11/02/20 Elana Pena, DO [address] [place] [address] Referring Physician Family Medicine 07/15/16 Jonathan Rutherford, WOLF HUNTER [address] [place] [address] Referring Physician Nurse Practitioner 07/22/21 Vehicle Body Maker Relationship Specialty Start Date End Date Jonathan Rutherford WOLF HUNTER [address] [place] [address] PCP - General Nurse Practitioner 11/02/20 Jonathan Rutherford WOLF HUNTER [address] [place] [address] Referring Physician Nurse Practitioner 07/22/21 Vehicle Body Maker Relationship Specialty Start Date End Date Jonathan Rutherford WOLF HUNTER [address] [place] [address] PCP - General Nurse Practitioner 11/02/20 Jonathan RutherfordDonna WOLF HUNTER [address] [place] [address] Referring Physician Nurse Practitioner 07/22/21 Vehicle Body Maker Relationship Specialty Start Date End Date Jonathan Rutherford WOLF HUNTER [address] [place] [address] PCP - General Nurse Practitioner 11/02/20 Jonathan RutherfordDonna WOLF HUNTER [address] [place] [address] Referring Physician Nurse Practitioner 07/22/21 Vehicle Body Maker Relationship Specialty Start Date End Date Jonathan RutherfordDonna WOLF HUNTER [address] [place] [address] PCP - General Nurse Practitioner 11/02/20 Jonathan RutherfordDonna, WOLF HUNTER [address] [place] [address] Referring Physician Nurse Practitioner 07/22/21 Vehicle Body Maker Relationship Specialty Start Date End Date Jonathan RutherfordDonna WOLF HUNTER [address] [place] [address] PCP - General Nurse Practitioner 11/02/20 Jonathan Rutherford, WOLF HUNTER [address] [place] [address] Referring Physician Nurse Practitioner 07/22/21 Vehicle Body Maker Relationship Specialty Start Date End Date Wilfridyonis Jonathan L., WOLF HUNTER [address] [place] [address] PCP - General Nurse Practitioner 11/02/20 Jonathan Rutherford, WOLF HUNTER [address] [place] [address] Referring Physician Nurse Practitioner 07/22/21 Vehicle Body Maker Relationship Specialty Start Date End Date Wilfridvaleriaaugustin Jonathan L., WOLF HUNTER [address] [place] [address] PCP - General Nurse Practitioner 11/02/20 Jonathan Rutherford WOLF HUNTER [address] [place] [address] Referring Physician Nurse Practitioner 07/22/21 Vehicle Body Maker Relationship Specialty Start Date End Date Jonathan Rutherford WOLF HUNTER [address] [place] [address] PCP - General Nurse Practitioner 11/02/20 Jonathan Rutherford WOLF HUNTER [address] [place] [address] Referring Physician Nurse Practitioner 07/22/21 Vehicle Body Maker Relationship Specialty Start Date End Date Jonathan Rutherford WOLF HUNTER [address] [place] [address] PCP - General Nurse Practitioner 11/02/20 Jonathan Rutherford WOLF HUNTER [address] [place] [address] Referring Physician Nurse Practitioner 07/22/21 Vehicle Body Maker Relationship Specialty Start Date End Date Jonathan Rutherford, WOLF HUNTER [address] [place] [address] PCP - General Nurse Practitioner 11/02/20 Jonathan Rutherford, WOLF HUNTER [address] [place] [address] Referring Physician Nurse Practitioner 07/22/21 Vehicle Body Maker Relationship Specialty Start Date End Date Jonathan Rutherford, WOLF HUNTER [address] [place] [address] PCP - General Nurse Practitioner 11/02/20 Jonathan Rutherford, WOLF HUNTER [address] [place] [address] Referring Physician Nurse Practitioner 07/22/21 Vehicle Body Maker Relationship Specialty Start Date End Date Jonathan Rutherford, ANIMAL HANDLER [address] [place] [address] PCP - General Nurse Practitioner 11/23/20 Vehicle Body Maker Relationship Specialty Start Date End Date Jonathan Rutherford, ANIMAL HANDLER [address] [place] [address] PCP - General Nurse Practitioner 11/23/20 Vehicle Body Maker Relationship Specialty Start Date End Date Jonathan Rutherford, ANIMAL HANDLER [address] [facility] [place] [address] PCP - General Nurse Practitioner 11/23/20 Team Status: Active Member Role Status Dates Dr. Jennifer Gordon MD Primary Care Provider Active Team Status: Inactive Member Role Status Dates Dr. Rusty Dozier MD Attending Provider Active Team Status: Inactive Member Role Status Dates Jonathan Rutherford [employer], [employer]-C Referring Provider Active Dr. Jennifer Gordon MD Primary Care Provider, [facility] Active Team Status: Inactive Member Role Status Dates Jonathan Rutherford [employer], [facility] [facility]-C Primary Care Provider Active Dr. Rusty Dozier [...] Dr. Rusty Dozier MD Referring Provider Active Vehicle Body Maker Relationship Specialty Start Date End Date Jonathan Rutherford, ANIMAL HANDLER [address] [place] [address] PCP - General Nurse Practitioner 11/23/20 Team Status: Inactive Member Role Status Dates Dr. Jennifer Gordon MD Primary Care Provider, Referri ng Provider Active Sasha Heredia [employer], [facility] [facility]-C Attending Provider Active Team Status: Inactive Member [...] Inactive Member Role Status Dates Sasha Heredia [employer] [facility], [facility] [facility]-C Attending Provider, Referrin g Provider Active Dr. Jennifer Gordon MD Primary Care Provider Active Vehicle Body Maker Relationship Specialty Start Date End Date Jonathan Rutherford, WOLF HUNTER [address] [place] [address] PCP - General Nurse Practitioner 11/02/20 Jonathan Rutherford, WOLF HUNTER [address] [place] [address] Referring Physician Nurse Practitioner 07/22/21 Vehicle Body Maker Relationship Specialty Start Date End Date Jonathan Rutherford, WOLF HUNTER [address] [place] [address] PCP - General Nurse Practitioner 11/02/20 Jonathan Rutherford, WOLF HUNTER [address] [place] [address] Referring Physician Nurse Practitioner 07/22/21 Vehicle Body Maker Relationship Specialty Start Date End Date Jonathan Rutherford, [facility] [address] [place] [address] PCP - General Nurse Practitioner 11/23/20 Team [...] MD Attending Provider, Referri ng Provider Active Vehicle Body Maker Relationship Specialty Start Date End Date Jonathan Rutherford, [facility] [address] [place] [id number] PCP - General Nurse Practitioner 11/23/20 Team [...] DO Attending Provider, Referring Pro vider Active Vehicle Body Maker Relationship Specialty Start Date End Date Jonathan Rutherford, RUIZ [address] [place] [address] PCP - General Nurse Practitioner 11/02/20 Jonathan Rutherford, RUIZ [address] [place] [address] Referring Physician Nurse Practitioner 07/22/21 Vehicle Body Maker Relationship Specialty Start Date End Date No, Physician [facility] PCP - General 09/02/24 Vehicle Body Maker Relationship Specialty Start Date End Date No, Physician [facility] PCP - General 09/02/24 Vehicle Body Maker Relationship Specialty Start Date End Date No, Physician [facility] PCP - General 09/02/24 Vehicle Body Maker Relationship Specialty Start Date End Date No, Physician [facility] PCP - General 09/02/24 Vehicle Body Maker Relationship Specialty Start Date End Date No, Physician [facility] PCP - General 09/02/24 Vehicle Body Maker Relationship Specialty Start Date End Date Alexandre Jonathan JUANIS KruseP [address] [place] [address] PCP - General Nurse Practitioner 11/23/20 Vehicle Body Maker Relationship Specialty Start Date End Date No, Physician [facility] PCP - General 09/02/24 Team Status: [...] February 03, 2025 End: February 03, 2025 Vehicle Body Maker Relationship Specialty Start Date End Date No, Physician [facility] PCP - General 09/02/24 Jennifer Sterling [place] Primary Care Physician 02/17/25 Team Status: Inactive [...] Active Start: April 17, 2025 Sasha Heredia [employer], [facility] [facility]-C Attending Provider Active Start: April 17, 2025 Sasha Heredia [employer], [facility] [facility]-C Referring Provider Active Start: April 17, 2025 Team Status: Inactive Member Role Status Dates Dr. Jennifer Gordon MD Primary Care Provider Active Start: April 17, 2025 End: April 17, 2025 Sasha Heredia [employer], [employer]-C Attending Provider Active Start: April 17, 2025 End: April 17, 2025 Sasha Heredia [employer], [facility] [facility]-C Referring Provider Active Start: April 17, 2025 End: April 17, 2025 Vehicle Body Maker Relationship Specialty Start Date End Date No, Physician [facility] PCP - General 09/02/24 Jennifer Sterling [place] Primary Care Physician 02/17/25 Vehicle Body Maker Relationship Specialty Start Date End Date Not On File, Doctor Medical Staff [facility] [address] [place] [address] PCP - General Unknown Physician Specialty 04/14/25 [...] 21, 2025 End: January 21, 2025 Dr. eMlvin Oshea MD Attending Provider Active S tart: [...] End: April 17, 2025 Sasha Heredia NP, [employer]-C Attending Provider Active Start: April 17, 2025 End: April 17, 2025 Sasha Heredia [employer], [facility] [facility]-C Referring Provider Active Start: April 17, 2025 [...] May 07, 2025 End: May 07, 2025 Vehicle Body Maker Relationship Specialty Start Date End Date Not On File, Doctor Medical Staff Office [address] [place] [address] PCP - General Unknown Physician Specialty 04/14/25 Vehicle Body Maker Relationship Specialty Start Date End Date Not On File, Doctor Medical Staff Office [address] [place] [address] PCP - General Unknown Physician Specialty 04/14/25 [...] Inactive Member Role/Relationship Status Dates Dr. Jennifer Godron MD Primary Care Provider Active Start: February [...] End: April 17, 2025 Sasha Heredia NP, [employer]-C Attending Provider Active Start: April 17, 2025 End: April 17, 2025 Sasha Heredia NP, [employer]-C Referring Provider Active Start: April 17, 2025 [...] 2025 End: April 17, 2025 Sasha Heredia [employer] N[employer], [employer]URS[employer]-C Attending Provider Active Start: April 17, 2025 End: April 17, 2025 Sasha Heredia CHIL[employer] NURSERY, [employer]URS[employer]-C Referring Provider Active Start: April 17, 2025 [...] 2025 End: April 17, 2025 Sasha Heredia CHIL[employer] NURSERY, CH[employer] NURS[employer]-C Attending Provider Active Start: April 17, 2025 End: April 17, 2025 Sasha Heredia CHIL[employer] NURSERY, CHIL[employer] NURS[employer]-C Referring Provider Active Start: April 17, 2025 [...] 2025 End: June 17, 2025 Colette Black [employer]-C Attending Provider Active Start: June 17, 2025 End: June 17, 2025 Team Status: Inactive Member Role/Relationship Status Dates Dr. Jennifer Gordon MD Primary Care Provider Active Start: June 24, 2025 End: June 24, 2025 Colette Black NP-C Attending Provider Active Start: June 24, 2025 End: June 24, 2025 Colette Black [employer]-C Referring Provider Active Start: June 24, 2025 End: June 24, 2025 Team Status: Inactive Member Role/Relationship Status Dates Dr. Jennifer Gordon MD Primary Care Provider Active Start: June 26, 2025 End: June 26, 2025 Dr. Jennifer Gordon MD Referring Provider Active Start: June 26, 2025 End: June 26, 2025 Mihaela Ungerer , [employer]-C Attending Provider Active Start: June 26, 2025 End: June 26, 2025 Team Status: Active Member Role/Relationship Status Dates Dr. Jennifer Gordon MD Primary Care Provider Active Start: June 26, 2025 Mihaela Ungerer , [employer]-C Attending Provider Active Start: June 26, 2025 Mihaela Ungerer , [employer]-C Referring Provider Active Start: June 26, 2025 Team Status: Inactive Member Role/Relationship Status Dates Dr. Jennifer Gordon MD Primary Care Provider Active Start: June 26, 2025 End: June 26, 2025 Mihaela Ungerer , [employer]-C Attending Provider Active Start: June 26, 2025 End: June 26, 2025 Mihaela Ungerer , [employer]-C Referring Provider Active Start: June 26, 2025 End: June 26, 2025 Team Status: Active Member Role/Relationship Status Dates Dr. Jennifer Gordon MD Primary Care Provider Active Start: July 11, 2025 Colette Black [employer]-C Attending Provider Active Start: July 11, 2025 Colette Black [employer]-C Referring Provider Active Start: July 11, 2025 [...] Other Provider Active Start: July 20, 2025 Vehicle Body Maker Relationship Specialty Start Date End Date Andre Martinez MD [address] [place] [address] PCP - General Internal Medicine 07/22/25 Team [...] 2025 End: April 17, 2025 Sasha Heredia [employer], [employer]-C Attending physician Active Start: April 17, 2025 End: April 17, 2025 Sasha Heredia CH[employer] N[employer], [facility]-C Referring Provider Active Start: April 17, 2025 [...] 2025 End: June 26, 2025 Mihaela Simpson [employer]-C Referring Provider Active Start: June 26, 2025 End: June 26, 2025 Team Status: Inactive Member Role/Relationship Status Dates Dr. Jennifer Gordon MD Primary care physician Active Start: July 11, 2025 End: July 11, 2025 LOUIS BarrosC Attending physician Active Start: July 11, 2025 End: July 11, 2025 Colette M Rufener , [employer]-C Referring Provider Active Start: July 11, 2025 [...] Cano MD Nurse Practitioner Active Start: July Vehicle Body Maker Relationship Specialty Start Date End Date Andre Martinez MD [address] [place] [address] PCP - General Internal Medicine 07/22/25 Goals [...] BE BASED ON THE PRIMARY CLINICAL RECORDS. [facility] Hospital. provides no warranty or guarantee of the accuracy or completeness of information in this document.
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
[2025-10-12 04:41] LABS: Hematocrit 28.4 % (37-47); Hemoglobin 9.1 g/dL (12.0-15.0); Immature Granulocytes Count 0.040 X10^3/uL (0.0-0.0); Mean Corp Hgb Conc 32.0 g/dL (32-36); Mean Corpuscular Volume 86.3 fL (81-99); Mean Platelet Vol. 9.9 fl (6.2-12.0); NRBC Flagged by Analyzer 0 % (0-5); Platelet Count 212 K/mm3 (150-450); RBC Distribution Width CV 14.3 % (11.6-14.6); RBC Distribution Width SD 45.3 fl (35.1-43.9); Red Blood Count 3.29 M/mm3 (4.2-5.4); White Blood Count 6.4 K/mm3 (4.4-11.0)
[2025-10-12 05:12] LABS: Anion Gap 10 (5-15); BUN 23 mg/dL (4-19); BUN/Creat Ratio 12.6 RATIO (10-20); Calcium,Total 8.3 mg/dL (7.6-11.0); Carbon Dioxide 24.6 mmol/L (21.0-32.0); Chloride 95 mmol/L (98-108); Estimated Creatinine Clearance 35.06 ml/min (50-250); Glucose 157 mg/dL (70-99); Potassium 4.8 mmol/L (3.3-5.1)
[2025-10-12] MEDS: Budesonide Respules 0.5 MG/2 ML AMPUL.NEB. INHALATION ×2 (07:00→21:10)
--- NOTE | 2025-10-12 07:04 | PN.HOSP_ITS ---
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 Presented with stiffness and hardness in her muscles with achiness and pain for 48 hours prior to presentation. She was exerting herself. She was last mated in July of this past year for similar. Medical Review Specialist was contacted by the ED physician and advised infusion of D10 half-normal saline with trending her CPKs and monitoring symptoms. She was admitted outside hospital about 2 weeks ago with pneumonia and treated with antibiotic for organism and was started on antibiotic the day prior to presentation with Radha by her life insurance agent for acute exacerbation of COPD with suspected pneumonia. Current plan is to continue IV fluids as ordered and trend CKs and monitor symptoms. A.m. labs ordered. Patient states she still pretty sore but improved some. No signs of compartment syndrome on exam. Muscle seem to be more tender but painful to palpation
[2025-10-12 08:02] LABS: CPK Total, Creatine Kinase 2652 U/L (24-195)
[2025-10-12] MEDS: Aspirin E.C. 81 MG Tablet PO (08:28)
[2025-10-12] MEDS: NIFEdipine 30 MG Tablet PO (08:36)
[2025-10-12] MEDS: Cholecalciferol (VIT D3) 25 MCG TABLET (1,000 UNITS) 50 MCG PO (08:36)
[2025-10-12] MEDS: Senna/Docusate Sodium 1 Tablet 2 TABLET PO (08:36)
[2025-10-13] VITALS (10 sets, daily range): BP systolic 120–158; BP diastolic 60–82; PULSE 60–78; RESP 16–20; TEMP 36.4–37; O2SAT 96–99
[2025-10-13] MEDS: Budesonide Respules 0.5 MG/2 ML AMPUL.NEB. INHALATION ×2 (06:55→19:06)
[2025-10-13 07:31] LABS: CPK Total, Creatine Kinase 910 U/L (24-195)
[2025-10-13] MEDS: Aspirin E.C. 81 MG Tablet PO (08:41)
[2025-10-13] MEDS: NIFEdipine 30 MG Tablet PO (08:43)
[2025-10-13] MEDS: Cholecalciferol (VIT D3) 25 MCG TABLET (1,000 UNITS) 50 MCG PO (08:44)
--- NOTE | 2025-10-13 10:21 | CASEMGMT ---
Social Work SW completed a SDOH with the patient. Patient uses a cab. Patient currently not driving due to cataracts. Patient does not have a car. VERA provided the patient with [facility] transport phone number. Patient lives with Surendra. Surendra does not drive. Patient has 2 brothers one that lives in [place] and one in [place]. Monica Painter
--- NOTE | 2025-10-13 10:46 | CASEMGMT ---
Social Work Face to Face with pt for initial transition planning/care coordination assessment. SW introduced self and role at [facility], pt voices understanding and consents to assessment. Pt is A&O x4 and answers all questions appropriately at this time. Admitting Dx: rhabdomyolysis, CPT deficiency Primary Care Doctor: Dr. Houston Speciality doctors: nephrology- Dr. Kamara, Cardio- Dr. Acosta, Screw Remover- Boogie Fraser, Neuro- Dr. Dozier Insurance: [facility] dual, and Medicaid Pharmacy: Patient utilizes [facility] Advanced directives: no. She is not interested in receiving info. LNOK: daughter Living Situation: Patient lives at home with her daughter and granddaughter. The granddaughter in the home helps the patient with fixing her food and laundry. Her other granddaughter does not live in the home but helps her as well. ADL's/Prior level of functioning: independent with ADL's. Receives assistance with her IADL's. Transportation: Patient still drives. DME: electric WC, [place], grab bars correction/home health history: none Mental Health: Patient reported she takes medication for depression and it helps. Substance abuse history: none Assessment: Patient reported she has help with her IADL's at home. She reported she is approved for [employer] and is working on getting her granddaughter approved as her caregiver. Patient reported she does not want any DME such as a FWW at [place] and she does not want HH at [place]. Patient reported she does not use any equipment in the home to walk. PLAN: [place] home with no needs BAYLEE Hammonds
--- NOTE | 2025-10-13 11:23 | PCM.PN.HOSP ---
Subjective Subjective Doing well, no issues overnight. Still feels like she has some leg stiffness. CPK is improving Objective Data Objective Data Vital Signs: Vital Signs Temp Pulse Resp BP Pulse Ox O2 Del Method O2 Flow Rate 97.7 F L 72 16 158/82 H 96 Nasal Cannula 3 10/13/25 08:35 10/13/25 08:42 10/13/25 08:35 10/13/25 08:42 10/13/25 08:35 10/13/25 08:35 10/13/25 08:35 Oxygen Flow Rate (L/min) 3 Oxygen Delivery Method Nasal Cannula Weight: 221 lb 12.56 oz Body Mass Index (BMI) 36.8 Intake & Output: Intake and Output for Last 24 Hours 10/12/25 10/13/25 10/14/25 03:59 03:59 03:59 Intake Total 254.8125 / 254.8125 1839.6250 / 1839.6250 Balance 254.8125 / 254.8125 1839.6250 / 1839.6250 Lab / Micro Data 10/12/25 04:02 10/12/25 04:02 Labs: Laboratory Results - last 24 hr 10/13/25 06:52: Total Creatine Kinase 910 H Physical Exam Narrative General: Alert, Oriented x3, Cooperative, No apparent distress HEENT: Atraumatic, PERRLA, EOMI, Normocephalic Oral: Moist Mucosa Neck: Supple, No JVD Lungs: Diminished, Normal air movement, No rhonchi, No wheeze, No rales Cardiovascular: Regular rate, Regular Rhythm, Normal S1, Normal S2, No murmurs Abdomen: Soft, Non Tender, Non-Distended, No Hepato-splenomegaly Extremities: No edema, Capillary Refill Less than 3 Seconds Skin: No rashes, No breakdown Musculoskeletal: No Tenderness to Palpation of Joints or Extremities Neurological: No focal neurological deficits, moves all extremities Psych/Mental Status: Normal Affect, Appropriate Assessment & Plan Assessment/Plan (1) Rhabdomyolysis: (2) CPT2 deficiency: (3) Hypertensive urgency: PLAN: Plan 1. CPT 2 flare with myalgias and generalized weakness and rhabdo/community-acquired pneumonia in the setting of COPD ? She states this happens about every 2 months ? She was diagnosed in her 30s ? She sees a retail route supervisor at [facility] [place] ? Continue with her home levocarnitine ? CPK is improving ? Continue with Levaquin 2. Essential HTN/HLD/CAD/PAD/history of NSVT ? Continue with her home blood pressure medications ? Will monitor make adjustments as necessary ? Continue with aspirin 3. Hypothyroidism ? Stable this is status post thyroidectomy ? Continue with Synthroid 4. CKD 4 ? Stable ? Continue to monitor renal function which is at baseline 5. Iron deficiency anemia ? Stable ? Continue replacement 6. Anxiety/depression ? Stable ? Continue with medications 7. GERD ? Stable ? Continue with PPI DVT: Lovenox Charges/Coding Visit Charges Inpatient E&M: 97584 Subs Hosp L2
[2025-10-13] MEDS: 0.9% Saline Lock 10 ML Syringe IV (16:40)
--- NOTE | 2025-10-13 19:55 | CPS ---
pt rinsed mouth x 2
[2025-10-13] MEDS: Senna/Docusate Sodium 1 Tablet 2 TABLET PO (20:36)
[2025-10-13] MEDS: DOXEPIN HCL 50 MG CAPSULE 100 MG PO (20:37)
[2025-10-14] VITALS (11 sets, daily range): BP systolic 141–158; BP diastolic 72–87; PULSE 62–77; RESP 16–18; TEMP 36.4–37.1; O2SAT 97–99
[2025-10-14 04:43] LABS: Hematocrit 32.2 % (37-47); Hemoglobin 10.1 g/dL (12.0-15.0); Immature Granulocytes Count 0.040 X10^3/uL (0.0-0.0); Mean Corp Hgb Conc 31.4 g/dL (32-36); Mean Corpuscular Volume 85.4 fL (81-99); Mean Platelet Vol. 9.7 fl (6.2-12.0); NRBC Flagged by Analyzer 0 % (0-5); Platelet Count 220 K/mm3 (150-450); RBC Distribution Width CV 14.0 % (11.6-14.6); RBC Distribution Width SD 43.8 fl (35.1-43.9); Red Blood Count 3.77 M/mm3 (4.2-5.4); White Blood Count 6.4 K/mm3 (4.4-11.0)
[2025-10-14 05:05] LABS: Anion Gap 9 (5-15); BUN 17 mg/dL (4-19); BUN/Creat Ratio 11.9 RATIO (10-20); CPK Total, Creatine Kinase 360 U/L (24-195); Calcium,Total 9.0 mg/dL (7.6-11.0); Carbon Dioxide 27.1 mmol/L (21.0-32.0); Chloride 95 mmol/L (98-108); Estimated Creatinine Clearance 44.24 ml/min (50-250); Glucose 99 mg/dL (70-99); Potassium 4.6 mmol/L (3.3-5.1)
[2025-10-14] MEDS: Budesonide Respules 0.5 MG/2 ML AMPUL.NEB. INHALATION ×2 (07:02→19:22)
[2025-10-14] MEDS: Cholecalciferol (VIT D3) 25 MCG TABLET (1,000 UNITS) 50 MCG PO (09:14)
[2025-10-14] MEDS: NIFEdipine 30 MG Tablet PO (09:14)
[2025-10-14] MEDS: Aspirin E.C. 81 MG Tablet PO (09:15)
[2025-10-14] MEDS: 0.9% Saline Lock 10 ML Syringe IV ×2 (09:15→17:13)
--- NOTE | 2025-10-14 09:51 | PCM.PN.HOSP ---
Subjective Subjective Still having some lower extremity cramping but overall doing better. CPK is down to 360 Objective Data Objective Data Vital Signs: Vital Signs Temp Pulse Resp BP Pulse Ox O2 Del Method O2 Flow Rate 98.1 F 72 16 156/75 H 97 Nasal Cannula 3 10/14/25 09:10 10/14/25 09:14 10/14/25 09:10 10/14/25 09:14 10/14/25 09:10 10/14/25 09:10 10/14/25 09:10 Oxygen Flow Rate (L/min) 3 Oxygen Delivery Method Nasal Cannula Weight: 221 lb 12.56 oz Body Mass Index (BMI) 36.8 Intake & Output: Intake and Output for Last 24 Hours 10/13/25 10/14/25 10/15/25 03:59 03:59 03:59 Intake Total 1839.6250 / 1839.6250 Balance 1839.6250 / 1839.6250 Lab / Micro Data 10/14/25 04:22 10/14/25 04:22 Labs: Laboratory Results - last 24 hr 10/14/25 04:22: WBC 6.4, RBC 3.77 L, Hgb 10.1 L, Hct 32.2 L, MCV 85.4, MCH 26.8 L, MCHC 31.4 L, RDW Std Deviation 43.8, RDW Coeff of Esvin 14.0, Plt Count 220, MPV 9.7, Immature Gran % (Auto) 0.600, Neut % (Auto) 67.7, Lymph % (Auto) 21.4, Gentry % (Auto) 7.4, Eos % (Auto) 2.4, Baso % (Auto) 0.5, Absolute Neuts (auto) 4.3, Absolute Lymphs (auto) 1.36, Nucleated RBC % 0, Sodium 131 L, Potassium 4.6, Chloride 95 L, Carbon Dioxide 27.1, Anion Gap 9, BUN 17, Creatinine 1.45 H, Estim Creat Clear Calc 44.24 L, Est GFR (MDRD) Non-Af 40 L, BUN/Creatinine Ratio 11.9, Glucose 99, Calcium 9.0, Total Creatine Kinase 360 H Physical Exam Narrative General: Alert, Oriented x3, Cooperative, No apparent distress HEENT: Atraumatic, PERRLA, EOMI, Normocephalic Oral: Moist Mucosa Neck: Supple, No JVD Lungs: Diminished, Normal air movement, No rhonchi, No wheeze, No rales Cardiovascular: Regular rate, Regular Rhythm, Normal S1, Normal S2, No murmurs Abdomen: Soft, Non Tender, Non-Distended, No Hepato-splenomegaly Extremities: No edema, Capillary Refill Less than 3 Seconds Skin: No rashes, No breakdown Musculoskeletal: No Tenderness to Palpation of Joints or Extremities Neurological: No focal neurological deficits, moves all extremities Psych/Mental Status: Normal Affect, Appropriate Assessment & Plan Assessment/Plan (1) Rhabdomyolysis: (2) CPT2 deficiency: (3) Hypertensive urgency: PLAN: Plan 1. CPT 2 flare with myalgias and generalized weakness and rhabdo/community-acquired pneumonia in the setting of COPD ? She states this happens about every 2 months ? She was diagnosed in her 30s ? She sees a edi analyst at [facility] ? Continue with her home levocarnitine ? CPK is improving though slowly, will restart D5 normal saline at 60 cc/h ? Continue with Levaquin 2. Essential HTN/HLD/CAD/PAD/history of NSVT ? Continue with her home blood pressure medications ? Will monitor make adjustments as necessary ? Continue with aspirin 3. Hypothyroidism ? Stable this is status post thyroidectomy ? Continue with Synthroid 4. CKD 4 ? Stable ? Continue to monitor renal function which is at baseline 5. Iron deficiency anemia ? Stable ? Continue replacement 6. Anxiety/depression ? Stable ? Continue with medications 7. GERD ? Stable ? Continue with PPI DVT: Lovenox Charges/Coding Visit Charges Inpatient E&M: 20031 Subs Hosp L2
[2025-10-14] MEDS: Dextrose 5%/0.9% NaCl 1,000 ML 60 ML IV (10:31)
[2025-10-14] MEDS: DOXEPIN HCL 50 MG CAPSULE 100 MG PO (20:33)
[2025-10-15] VITALS (7 sets, daily range): BP systolic 139–178; BP diastolic 74–96; PULSE 57–77; RESP 16–18; TEMP 36.7–36.8; O2SAT 94–99; BMI 36.4
[2025-10-15] MEDS: Dextrose 5%/0.9% NaCl 1,000 ML 60 ML IV (03:14)
[2025-10-15 06:26] LABS: CPK Total, Creatine Kinase 137 U/L (24-195)
[2025-10-15] MEDS: Budesonide Respules 0.5 MG/2 ML AMPUL.NEB. INHALATION (06:56)
[2025-10-15] MEDS: Aspirin E.C. 81 MG Tablet PO (09:26)
[2025-10-15] MEDS: Cholecalciferol (VIT D3) 25 MCG TABLET (1,000 UNITS) 50 MCG PO (09:26)
[2025-10-15] MEDS: NIFEdipine 30 MG Tablet PO (09:27)
--- NOTE | 2025-10-15 10:33 | CASEMGMT ---
Addendum entered by Annabelle Painter 10/15/25 11:37: SW confirmed that the patient did not HH at [place]. Patient stated she did not want HH and that she has family at home that can help her. Original Note: Social Work SW spoke with the patient and she reported her family can bring her oxygen tank when she [place]. BAYLEE Hammonds
--- NOTE | 2025-10-15 10:58 | DCINST_ITS ---
Discharge Instructions [place] O2, CPAP, BIPAP needs Home O2 Discharge instructions: No Dressing / Incision Discharge Activity: Return to Normal Activity Dressing / Incision Call your doctor if you observe: Fever of 101 or Higher, Shortness of breath, Dizziness, Fainting spells, Swelling in the ankles, Chest pain and Increased palpitations (irregular heartbeat) Follow Up Care Test Results: Test results from this visit will be discussed in further detail at your follow- up appointment, if applicable. Discharge Plan Admission Admit Date/Time: 10/12/25 00:37 Attending Provider: Arnel Cano Primary Care Provider: Jennifer Gordon Consulting Providers: Vincent Hood; Zamzam Kruse Discharge Orders/Prescriptions Prescriptions: Continued (DME) Disability Placard See Rx Instructions .Route .MEDSUPPLY Qty: 1 0RF Rx Instructions: Expiration 02/07/2026 levocarnitine 330 mg tablet 330 mg PO TID aspirin [Adult Low Dose Aspirin] 81 mg tablet,delayed release (DR/EC) 81 mg PO DAILY cholecalciferol (vitamin D3) 50 mcg (2,000 unit) capsule 50 mcg PO DAILY ferrous sulfate 325 mg (65 mg iron) tablet 325 mg PO BID (DME) compr.stocking,thigh,short,lrg Misc See Rx Instructions .Route Qty: 24 0RF Rx Instructions: As directed albuterol sulfate 90 mcg/actuation HFA aerosol inhaler 2 puff inhalation Q6H PRN (Reason: copd) lisinopril 20 mg tablet 10 mg PO QDAY vitamin E (dl, acetate) 45 mg (100 unit) capsule 45 mg PO QDAY doxepin 100 mg capsule 100 mg PO QHS Qty: 30 4RF tizanidine 4 mg tablet See Rx Instructions .ROUTE .COMPLEX Qty: 150 4RF Rx Instructions: Take 1 tablet orally twice daily and 3 tablets nightly as needed for muscle pain/spasm. albuterol sulfate 2.5 mg /3 mL (0.083 %) solution for nebulization 2.5 mg inhalation Q6 PRN (Reason: wheezing) Trelegy Ellipta 200-62.5-25 mcg blister with device 1 inh inhalation DAILY Qty: 3 3RF guaifenesin [Mucinex] 1,200 mg tablet extended release 12hr 1,200 mg PO BID Qty: 60 3RF Nucala 100 mg/mL auto-injector 100 mg subcut Q4W Qty: 1 11RF (DME) OXYGEN - Supplemental ([facility] INFORMATIONAL USE ONLY) Gas See Rx Instructions .Route Patient Comments: pt states she wears 4 lpm NC continuously at home. DME: [employer] Rx Instructions: As directed metoprolol tartrate 100 mg tablet 100 mg PO BID Qty: 180 3RF Patient Comments: ONLY TAKES 75 MG I BREAK THE TABLETS UP AT HOME omeprazole 40 mg capsule,delayed release(DR/EC) 40 mg PO DAILY Qty: 90 1RF duloxetine 60 mg capsule,delayed release(DR/EC) 60 mg PO DAILY Qty: 90 1RF nifedipine 30 mg tablet extended release 30 mg PO DAILY Qty: 90 1RF lovastatin 10 mg tablet 10 mg PO QPM Qty: 90 1RF (DME) nebulizer kits See Rx Instructions .ROUTE .MEDSUPPLY Qty: 1 11RF Rx Instructions: As directed (DME) neublizer machine See Rx Instructions .ROUTE .MEDSUPPLY Qty: 1 0RF Rx Instructions: As directed levothyroxine 175 mcg tablet 175 mcg PO DAILY Qty: 90 0RF Patient Comments: pt has been taking at night levofloxacin 750 mg tablet 750 mg PO Q24H Qty: 10 0RF Referrals / Follow Up: Jennifer Gordon MD [Primary Care Provider, Internal Medicine] - Within 1 Week Disposition Disposition (needs filled in before D/C Order can be placed): Home, Self Care
--- NOTE | 2025-10-15 11:20 | PHA.DC_ITS ---
Pharmacy [place] Med Reconciliation Pharmacy Service has performed discharge medication reconciliation for this patient. The patient's discharge medication list was reviewed for discrepancies and discrepancies were resolved. Medications at Discharge Home Medications Disability Placard #1 ea 02/07/23 aspirin 81 mg tablet,delayed release (Adult Low Dose Aspirin) 81 mg PO DAILY heart health 04/18/23 cholecalciferol (vitamin D3) 50 mcg (2,000 unit) capsule 50 mcg PO DAILY vitamin 04/18/23 ferrous sulfate 325 mg (65 mg iron) tablet 325 mg PO BID supplement 04/18/23 levocarnitine 330 mg tablet 330 mg PO TID vitamin 04/18/23 compr.stocking,thigh,short,lrg #24 ea 02/29/24 vitamin E (dl, acetate) 45 mg (100 unit) capsule 45 mg PO QDAY supplement 01/06/25 metoprolol tartrate 100 mg tablet 100 mg PO BID blood pressure #180 tabs 02/18/25 albuterol sulfate 90 mcg/actuation aerosol inhaler 2 puff inhalation Q6H PRN copd 04/04/25 lisinopril 20 mg tablet 10 mg PO QDAY hypertension 04/16/25 duloxetine 60 mg capsule,delayed release 60 mg PO DAILY mental health #90 caps 04/17/25 nifedipine 30 mg tablet,extended release 30 mg PO DAILY blood pressure #90 tabs 04/17/25 omeprazole 40 mg capsule,delayed release 40 mg PO DAILY for acid reflux #90 caps 04/17/25 albuterol sulfate 2.5 mg/3 mL (0.083 %) solution for nebulization 2.5 mg inhalation Q6 PRN wheezing 06/17/25 lovastatin 10 mg tablet 10 mg PO QPM cholesterol #90 tabs 07/17/25 OXYGEN - Supplemental ([facility] INFORMATIONAL USE ONLY) 07/18/25 nebulizer kits #1 ea 08/26/25 neublizer machine #1 ea 08/26/25 levothyroxine 175 mcg tablet 175 mcg PO DAILY thyroid #90 tabs 09/05/25 doxepin 100 mg capsule 100 mg PO QHS sleep #30 caps 09/07/25 tizanidine 4 mg tablet See Rx Instructions .Route .COMPLEX spasms #150 tabs 09/07/25 fluticasone fur. 200 mcg-umeclid 62.5 mcg-vilant 25 mcg inhalat.powder (Trelegy Ellipta) 1 inh inhalation DAILY breathing #3 ea 09/24/25 guaifenesin 1,200 mg tablet, extended release 12 hr (Mucinex) 1,200 mg PO BID cough #60 tabs 09/24/25 mepolizumab 100 mg/mL subcutaneous auto-injector (Nucala) 100 mg subcut Q4W #1 mL 09/24/25 levofloxacin 750 mg tablet 750 mg PO Q24H infection #10 tabs 10/10/25
--- NOTE | 2025-10-15 12:31 | PCM.DC.SUM ---
Providers Date of Admission: 10/12/25 Primary Care Physician: Dr. 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 (3) Hypertensive urgency: Status: Acute Code(s): I16.0 - Hypertensive urgency Medications at Discharge Home Medications Disability Placard #1 ea 02/07/23 aspirin 81 mg tablet,delayed release (Adult Low Dose Aspirin) 81 mg PO DAILY heart health 04/18/23 cholecalciferol (vitamin D3) 50 mcg (2,000 unit) capsule 50 mcg PO DAILY vitamin 04/18/23 ferrous sulfate 325 mg (65 mg iron) tablet 325 mg PO BID supplement 04/18/23 levocarnitine 330 mg tablet 330 mg PO TID vitamin 04/18/23 compr.stocking,thigh,short,lrg #24 ea 02/29/24 vitamin E (dl, acetate) 45 mg (100 unit) capsule 45 mg PO QDAY supplement 01/06/25 metoprolol tartrate 100 mg tablet 100 mg PO BID blood pressure #180 tabs 02/18/25 albuterol sulfate 90 mcg/actuation aerosol inhaler 2 puff inhalation Q6H PRN copd 04/04/25 lisinopril 20 mg tablet 10 mg PO QDAY hypertension 04/16/25 duloxetine 60 mg capsule,delayed release 60 mg PO DAILY mental health #90 caps 04/17/25 nifedipine 30 mg tablet,extended release 30 mg PO DAILY blood pressure #90 tabs 04/17/25 omeprazole 40 mg capsule,delayed release 40 mg PO DAILY for acid reflux #90 caps 04/17/25 albuterol sulfate 2.5 mg/3 mL (0.083 %) solution for nebulization 2.5 mg inhalation Q6 PRN wheezing 06/17/25 lovastatin 10 mg tablet 10 mg PO QPM cholesterol #90 tabs 07/17/25 OXYGEN - Supplemental ([facility] INFORMATIONAL USE ONLY) 07/18/25 nebulizer kits #1 ea 08/26/25 neublizer machine #1 ea 08/26/25 levothyroxine 175 mcg tablet 175 mcg PO DAILY thyroid #90 tabs 09/05/25 doxepin 100 mg capsule 100 mg PO QHS sleep #30 caps 09/07/25 tizanidine 4 mg tablet See Rx Instructions .Route .COMPLEX spasms #150 tabs 09/07/25 fluticasone fur. 200 mcg-umeclid 62.5 mcg-vilant 25 mcg inhalat.powder (Trelegy Ellipta) 1 inh inhalation DAILY breathing #3 ea 09/24/25 guaifenesin 1,200 mg tablet, extended release 12 hr (Mucinex) 1,200 mg PO BID cough #60 tabs 09/24/25 mepolizumab 100 mg/mL subcutaneous auto-injector (Nucala) 100 mg subcut Q4W #1 mL 09/24/25 levofloxacin 750 mg tablet 750 mg PO Q24H infection #10 tabs 10/10/25 Hospital Course Operations None Procedures None Summary of Care Provided Minutes Spent on Discharge: 36 Hospital Course: Per HPI: LENNY SHAFER, is a 65 F who presents to ED with diffuse muscle pain and aches along with hardness and stiffness for the last 2 days after she was rushing and exerting herself. 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 Bonner in [facility] in [place] sometime ago. She complained of muscle ache stiffness and lower extremity and in the back and paravertebral muscles. She was last admitted in July 2025 for similar complaint and was treated with D10 half-normal saline. ER physician Dr. Montano talked to hand twister and advised same D10 half-normal saline. In ED, her CPK is elevated 3743. Her blood pressure high, BP 193/92, improved to 172/81. She said usually her blood pressure is 110/68. She was admitted in outside hospital about 2 weeks ago with pneumonia and was not treated with antibiotic as per organism. She was started on right antibiotic yesterday Levaquin 750 mg daily and supposed to complete 10 days total treatment. She follows [place] [facility] with Dr. Joseph. History of COPD stage III on Trelegy Ellipta and albuterol inhaler. She has history of smoking about 1 pack/day since teenage but quit in 07/10/2013. Recently she was found to have asthma component of COPD but sleep study was negative for sleep apnea. Hospital Course: 1. CPT 2 deficiency flare with myalgias and generalized weakness and rhabdomyolysis with community-acquired pneumonia in the setting of COPD?65-year-old female presented to the hospital with increasing lower extremity stiffness and discomfort. This is typical of her CPT 2 deficiency flare so she presented to hospital and was started on dextrose drip and her CPKs were monitored and she did normalize from up peak of 3700. Renal function is also improving with the IV fluids. She is feeling better today though she is still having the stiffness and I discussed with her the possibility of going home versus staying here and she expressed understanding of the risks and benefits of going home and is okay with going today. She is dede try to contact her hand twister at [facility] for input in the meantime she will continue with her home medications for this deficiency. She was started on Levaquin as an outpatient for community-acquired pneumonia which may have initiated this flare, she was continued on Levaquin here in the hospital and recommend continuation of her home Levaquin on discharge to complete a course. 2. Essential hypertension, hyperlipidemia, coronary artery disease, peripheral artery disease, history of NSVT, hypothyroidism, CKD 4, iron deficiency anemia, anxiety, depression, GERD are all chronic medical conditions which complicate her care. Her home medications were continued where appropriate Weight / BMI Weight Weight: 219 lb 2.232 oz Body Mass Index (BMI) 36.4 ABG / Lab / Microbiology Data 10/14/25 04:22 10/14/25 04:22 Laboratory: Laboratory Results - last 24 hr 10/15/25 05:32: Total Creatine Kinase 137 D/C Instructions Call your doctor if you observe: Fever of 101 or Higher, Shortness of breath, Dizziness, Fainting spells, Swelling in the ankles, Chest pain and Increased palpitations (irregular heartbeat) DC O2, CPAP, BIPAP Needs Home O2 Discharge instructions: No Meaningful Use Info Meaningful Use Meaningful Use Diagnoses (Choose all that apply): None applicable Discharge Plan Admission Admit Date/Time: 10/12/25 00:37 Attending Provider: Arnel Cano Primary Care Provider: Jennifer Gordon Consulting Providers: Vincent Hood; Zamzam Kruse Discharge Orders/Prescriptions Prescriptions: Continued (DME) Disability Placard See Rx Instructions .Route .MEDSUPPLY Qty: 1 0RF Rx Instructions: Expiration 02/07/2026 levocarnitine 330 mg tablet 330 mg PO TID aspirin [Adult Low Dose Aspirin] 81 mg tablet,delayed release (DR/EC) 81 mg PO DAILY cholecalciferol (vitamin D3) 50 mcg (2,000 unit) capsule 50 mcg PO DAILY ferrous sulfate 325 mg (65 mg iron) tablet 325 mg PO BID (DME) compr.stocking,thigh,short,lrg Misc See Rx Instructions .Route Qty: 24 0RF Rx Instructions: As directed albuterol sulfate 90 mcg/actuation HFA aerosol inhaler 2 puff inhalation Q6H PRN (Reason: copd) lisinopril 20 mg tablet 10 mg PO QDAY vitamin E (dl, acetate) 45 mg (100 unit) capsule 45 mg PO QDAY doxepin 100 mg capsule 100 mg PO QHS Qty: 30 4RF tizanidine 4 mg tablet See Rx Instructions .ROUTE .COMPLEX Qty: 150 4RF Rx Instructions: Take 1 tablet orally twice daily and 3 tablets nightly as needed for muscle pain/spasm. albuterol sulfate 2.5 mg /3 mL (0.083 %) solution for nebulization 2.5 mg inhalation Q6 PRN (Reason: wheezing) Trelegy Ellipta 200-62.5-25 mcg blister with device 1 inh inhalation DAILY Qty: 3 3RF guaifenesin [Mucinex] 1,200 mg tablet extended release 12hr 1,200 mg PO BID Qty: 60 3RF Nucala 100 mg/mL auto-injector 100 mg subcut Q4W Qty: 1 11RF (DME) OXYGEN - Supplemental ([facility] INFORMATIONAL USE ONLY) Gas See Rx Instructions .Route Patient Comments: pt states she wears 4 lpm NC continuously at home. DME: [employer] Rx Instructions: As directed metoprolol tartrate 100 mg tablet 100 mg PO BID Qty: 180 3RF Patient Comments: ONLY TAKES 75 MG I BREAK THE TABLETS UP AT HOME omeprazole 40 mg capsule,delayed release(DR/EC) 40 mg PO DAILY Qty: 90 1RF duloxetine 60 mg capsule,delayed release(DR/EC) 60 mg PO DAILY Qty: 90 1RF nifedipine 30 mg tablet extended release 30 mg PO DAILY Qty: 90 1RF lovastatin 10 mg tablet 10 mg PO QPM Qty: 90 1RF (DME) nebulizer kits See Rx Instructions .ROUTE .MEDSUPPLY Qty: 1 11RF Rx Instructions: As directed (DME) neublizer machine See Rx Instructions .ROUTE .MEDSUPPLY Qty: 1 0RF Rx Instructions: As directed levothyroxine 175 mcg tablet 175 mcg PO DAILY Qty: 90 0RF Patient Comments: pt has been taking at night levofloxacin 750 mg tablet 750 mg PO Q24H Qty: 10 0RF Referrals / Follow Up: Jennifer Gordon MD [Primary Care Provider, Internal Medicine] - 10/24/25 12:30 pm Referral Note: Appointment with Jose De Jesus Dash Disposition Disposition (needs filled in before D/C Order can be placed): Home, Self Care Charges/Coding Visit Charges Inpatient E&M: 24791 Disch Hosp >30min
--- NOTE | 2025-10-17 11:43 | CASEMGMT ---
Social Work SW called Samantha Perez the [employer] at [phone] and left a message. BAYLEE Hammonds
== END 2025-10-15 15:43 | disposition home or self-care (01) | DRG 557 ==
LOC: ED 10-12 00:19 → PCU 10-12 02:39
PROVIDERS: Internal Medicine; Admitting Provider Internal Medicine; Emergency Provider Emergency Medicine; PCP Internal Medicine; Referring Provider Internal Medicine; Visit Provider Family Medicine
DX: M62.82 Rhabdomyolysis (principal); J15.8 Pneumonia due to other specified bacteria; E71.314 Muscle carnitine palmitoyltransferase deficiency; N18.4 Chronic kidney disease, stage 4 (severe); J44.0 Chronic obstructive pulmonary disease with (acute) lower respiratory infection; J96.11 Chronic respiratory failure with hypoxia; I16.0 Hypertensive urgency; Z66 Do not resuscitate; D50.9 Iron deficiency anemia, unspecified; I12.9 Hypertensive chronic kidney disease with stage 1 through stage 4 chronic kidney disease, or unspecified chronic kidney disease; I73.9 Peripheral vascular disease, unspecified; E03.9 Hypothyroidism, unspecified; F32.A Depression, unspecified; I25.10 Atherosclerotic heart disease of native coronary artery without angina pectoris; E78.5 Hyperlipidemia, unspecified; K21.9 Gastro-esophageal reflux disease without esophagitis; F41.9 Anxiety disorder, unspecified; Z90.710 Acquired absence of both cervix and uterus; Z79.899 Other long term (current) drug therapy; Z79.51 Long term (current) use of inhaled steroids; Z79.82 Long term (current) use of aspirin; Z87.891 Personal history of nicotine dependence; B96.89 Other specified bacterial agents as the cause of diseases classified elsewhere
CPT/HCPCS: 36415; 80048; 80053; 82550; 82962; 83735; 84100; 84439; 84443; 85025; 94640; 97162; 97165; 97802; 99285; A4216; J2405